=== PATIENT | female | born 1955 | race Caucasian/White ===

== ENCOUNTER 2016-10-06 07:10 | Emergency (ER) | payer OTHER ==
[~2016-10-06] VITALS: Ht 162.6 cm; Wt 146.9 kg
[~2016-10-06 07:10] MED LIST: CLON0.5T3 PO; FURO-85 PO; HYDR12.55 PO; INSDGI SC; LEVO200T6 PO; LEVO25TA5 PO; LISI-461 PO; METF-384 PO; METO25TA56 PO; NORT10CA2 PO; PRLSR20 PO; REPA1TAB42 PO; ROPI1TAB PO; SERT-234 PO
[2016-10-06 07:15] VITALS: TEMP 37; Ht 162.6 cm; Wt 146.9 kg
[2016-10-06] MEDS ORDERED: KETOROLAC TROMETHAMINE 30 MG/ML VIAL IV STA (07:24)
[2016-10-06] MEDS ORDERED: SODIUM CHLORIDE 0.9% 1000ML 1,000 ML IV ONE (07:30)
[2016-10-06 08:17] LABS: BUN/CREATININE RATIO 17.2 (10-20); CALCIUM 8.7 mg/dl (8.5-10.1); CREATININE 1.2 mg/dl (0.60-1.20); POTASSIUM 4.2 mmol/L (3.5-5.1)
[2016-10-06 08:20] LABS: ALB/GLOB RATIO 0.8 (0.9-2)
[2016-10-06 08:21] LABS: BASO % 0.4 %; BASO ABS # 0.03 K/uL (0-0.2); COMPLETE YES; EOS % 4.4 %; IG% 0.7 %; LYMPH % 16.4 %; LYMPH ABS # 1.22 K/uL (1.2-3.4); MEAN CELL VOLUME 92.3 fL (80-100); MEAN CORPUSCULAR HEMOGLOBIN 29.5 pg (25-34); NEUT % 73.1 %; PLATELET COUNT 256 K/uL (130-400); RED BLOOD COUNT 4.44 M/uL (4.2-5.4); WHITE BLOOD COUNT 7.44 K/uL (4.8-10.8)
--- NOTE | 2016-10-06 08:36 | DIAGNOSTIC IMAGING REPORT ---
PA CHEST WITH ABDOMINAL SERIES CLINICAL HISTORY: Fall. Generalized abdominal pain. FINDINGS: A PA chest radiograph is compared to study dated 07/09/2015. The heart is top normal for projection. The pulmonary vasculature is noncongested. There is mild atherosclerotic calcification of the thoracic aorta. The lungs and pleural spaces are clear. No pneumothorax is seen. The skeletal structures are osteopenic. The bony thorax is grossly intact. Surgical clips are noted in the lower neck. Supine and erect abdominal radiographs are correlated with abdominal CT dated 07/08/2015. The examination is significantly degraded by large body habitus. There is a nonobstructed abdominal bowel gas pattern. No evidence of intraperitoneal free air is seen. Cholecystectomy clips are identified in the right upper quadrant. An IVC filter is in place. No abnormal abdominal calcifications are seen. Hepatomegaly is observed. There is mild lumbosacral spondylosis. The bony pelvis appears intact. IMPRESSION: 1. No active disease in the chest. 2. Nonobstructed abdominal bowel gas pattern. Electronically signed by: Zachariah Borden M.D. 10/06/2016 8:35 AM Dictated Date/Time: 10/06/2016 8:32 AM
--- NOTE | 2016-10-06 08:39 | DIAGNOSTIC IMAGING REPORT ---
LUMBAR SPINE 5 VIEWS CLINICAL HISTORY: Fall. Low back pain. FINDINGS: 5 views of the lumbar spine are correlated with CT scan of lumbar spine dated 07/08/2015. The skeletal structures are osteopenic. There is no radiographic evidence of fracture or malalignment. Vertebral body height is maintained throughout the lumbar spine. There is minimal retrolisthesis of L1-L2 and L2-L3. Minimal anterolisthesis is seen at L4-L5. Anterior osteophytes are seen throughout. The transverse and spinous processes are intact. There is no evidence of spondylolysis. There is moderate degenerative disc space narrowing seen at L2-L3 and L3-L4 with associated endplate sclerosis. Mild degenerative disc space narrowing is seen at the remaining lumbar levels. Moderate facet arthropathy is seen in the lower lumbar spine. The visualized bony pelvis appears intact. There is a nonobstructed abdominal bowel gas pattern. An IVC filter is in place. Cholecystectomy clips are noted. There is advanced atherosclerotic calcification of the abdominal aorta. IMPRESSION: 1. There is no radiographic evidence of fracture or malalignment involving the lumbosacral spine. 2. Osteopenia and lumbosacral spondylosis as above. Electronically signed by: Zachariah Borden M.D. 10/06/2016 8:37 AM Dictated Date/Time: 10/06/2016 8:35 AM
[2016-10-06] MEDS ORDERED: LIRA18IN INJ (08:40)
--- NOTE | 2016-10-06 08:42 | DIAGNOSTIC IMAGING REPORT ---
RIGHT SHOULDER MIN 2 VIEWS ROUTINE CLINICAL HISTORY: Right shoulder pain status post trauma COMPARISON: None. DISCUSSION: No fractures or dislocations are visualized. There are no visible periarticular calcifications. IMPRESSION: No fractures or dislocations identified. Electronically signed by: Austin Claire M.D. 10/06/2016 8:40 AM Dictated Date/Time: 10/06/2016 8:40 AM
[2016-10-06] MEDS ORDERED: HYDR-5688 PO (09:29)
[2016-10-06 10:14] VITALS: BP 126/86; PULSE 94; O2SAT 92
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
[2017-05-05] MEDS ORDERED: CYCL10TA6 PO (08:20)
[2017-05-05] MEDS ORDERED: DPRSCR15 TOP (08:20)
[2017-05-05] MEDS ORDERED: NORT50CA PO (08:20)
[2017-05-05] MEDS ORDERED: OXGN (08:22)
[2017-05-05] MEDS ORDERED: TRAM-10 PO (08:22)
== END 2016-10-06 10:16 | disposition home or self-care (01) ==
LOC: C.EDB 07:10 → EDBD 07:10 → C.EDB 10:16
DX: S40.011A Contusion of right shoulder, initial encounter (principal); W01.0XXA Fall on same level from slipping, tripping and stumbling without subsequent striking against object, initial encounter; Y92.019 Unspecified place in single-family (private) house as the place of occurrence of the external cause; I10 Essential (primary) hypertension; E78.5 Hyperlipidemia, unspecified; K57.92 Diverticulitis of intestine, part unspecified, without perforation or abscess without bleeding; K21.9 Gastro-esophageal reflux disease without esophagitis; G47.33 Obstructive sleep apnea (adult) (pediatric); F32.9 Major depressive disorder, single episode, unspecified; Z86.718 Personal history of other venous thrombosis and embolism; Z96.659 Presence of unspecified artificial knee joint; Z87.891 Personal history of nicotine dependence; Z79.4 Long term (current) use of insulin; Z79.84 Long term (current) use of oral hypoglycemic drugs; Z79.899 Other long term (current) drug therapy; Z88.5 Allergy status to narcotic agent; Z88.8 Allergy status to other drugs, medicaments and biological substances

== ENCOUNTER → 2017-05-05 | Outpatient (CLI) | payer OTHER ==
--- NOTE | 2017-05-04 12:10 | History and Physical ---
History & Physical Date of Service May 04, 2017. History & Physical PROCEDURE: Left total knee replacement. HISTORY OF PRESENT ILLNESS: The patient is a pleasant 62-year-old female who presents for preoperative evaluation prior to left total knee replacement. She states that she has been experiencing in the left knee now for several years which is gradually worsening. She denies any previous injury or trauma, she does admit to pain, crepitus, decreased range of motion and stiffness, and instability. Her pain is aggravated by climbing stairs, walking, standing for prolonged periods of time. She has taken prior anti-inflammatories including Advil without any relief and also used a cane to ambulate. She states she had a previous cortisone injections in her knee which did not provide any relief. After discussing further care with Dr. Carrillo, would like to proceed with a left total knee replacement. Underwent Right TKA in 2013 and is doing well. PAST MEDICAL HISTORY: 1. h/o Pneumonia which she subsequently developed a pneumothorax and what sounds like sepsis. She was then placed into a drug induced coma and was transferred to [place]. She was hospitalized from Jun 2009 through November 2009 which included stay at nursing facility. While hospitalized, she developed a DVT and was treated with Heparin, which she had a severe allergic reaction to which she states almost caused her to . She has since had a filter placed in her right leg for clots. 2. Diabetes. 3. Hypertension. 4. GERD. 5. Depression. 6. History of DVT. 7. Sleep apnea. 8. Thyroid disease s/p thyroidectomy due to h/o goiter and previous trach. ALLERGIES: 1. MORPHINE- causes her to be violent, no allergic reaction 2. CODEINE- states she is ok with Percocet 3. Heparin- "bad reaction which almost caused me to " CURRENT MEDICATIONS: 1. Hydrochlorothiazide 12.5 mg daily. 2. Tirosint 25 micrograms daily. 3. Metoprolol 25 mg b.i.d. 4. Repaglinide 1 tablet by mouth 3 times daily. 5. Insulin glargine 6. Lisinopril 10 mg daily. 7. Levothyroxine 200 micrograms 1 tablet daily. 8. Sertraline 100 mg daily. 9. Prilosec 20 mg daily. 10. Klonopin 0.5 mg daily. 11. Cyclobenzaprine 10 mg daily. 12. Claritin 10 mg daily. 13. Tylenol p.r.n. 14. Lasix 20 mg daily. 15. Advil p.r.n. 16. Voctoza 17. Flexeril PAST SURGICAL HISTORY: 1. Ankle scope. 2. Knee arthroscopy. 3. Cholecystectomy 2008. 4. Colostomy in 1996. 5. filter into right leg for clots 6. Thyroidectomy 7. Right TKA FAMILY HISTORY: Noncontributory. SOCIAL HISTORY: The patient is a former smoker, denies any alcohol consumption. REVIEW OF SYSTEMS: Otherwise negative. Please see HPI for pertinent positives. PHYSICAL EXAMINATION: GENERAL: Well developed, well-nourished pleasant 62-year-old female in no acute distress, alert and oriented. She weighs 345 pounds. VITAL SIGNS: Her blood pressure is 110/86, pulse is 80. HEENT: Normocephalic, atraumatic. CARDIAC: Regular rate and rhythm. No murmurs or gallops appreciated. Resting pulse 76 beats minute. LUNGS: Clear to auscultation without rales or wheeze bilaterally. ABDOMEN: Soft, nontender, obese. Bowel sounds present. EXTREMITIES: Attention to left lower extremity, she is neurovascularly intact. Calves soft and nontender. DP pulse +2. Good quad tone. Straight leg raise without lag. Knee is ligamentously stable. There is no erythema or warmth. Moderate effusion, positive crepitation with motion, range of motion is 0/5/105. IMAGING: Views of her Left knee shows degenerative joint disease with joint space narrowing and peripheral osteophytes, worse over the medial compartment with varus alignment. She also had degenerative changes with patellar spurring of the patellofemoral view. No acute bony pathology. IMPRESSION: 1. Left knee degenerative joint disease. 2. Hypertension. 3. Diabetes. 4. Thyroid disease s/p thyroidectomy 5. Sleep apnea. 6. Obesity. 7. History of DVT. PLAN: Further care discussed with patient. At this point in time, proceed with a left total knee replacement. Given her history of DVT, we will need to consider more aggressive DVT prophylaxis, she will check w/ her PCP tomorrow during clearance appointment. She does have filter in place but can not take Lovenox. At this point in time, after discussing all the risks and benefits of the procedure and failing conservative measures, she would like to proceed with a left total knee replacement.
[~2017-05-05] VITALS: Ht 165.1 cm; Wt 148.9 kg
[~2017-05-05] MED LIST changes: +ACET-1256 PO; +CIPR-255 PO; +CYCL10TA6 PO; +DPRSCR15 TOP; -FURO-85 PO; +LIRA18IN INJ; +NORT50CA PO; +OXGN; -REPA1TAB42 PO; +TRAM-10 PO
[2017-05-05 08:24] VITALS: Ht 165.1 cm; Wt 148.9 kg
--- NOTE | 2017-05-05 09:04 | PAT Medication Instructions ---
Service Date May 05, 2017. Current Home Medication List Betamethasone Dip (Betamethasone Dipropionat), 1 APPLN TOP BID PRN for PRN Clonazepam (Klonopin), 0.5 MG PO BID Cyclobenzaprine Hcl (Flexeril), 10 MG PO PRN Home O2 Therapy (Oxygen), 4 LITERS NA HS Hydrochlorothiazide (Hydrochlorothiazide), 1 TAB PO QAM Insulin Glargine (Lantus), 56 UNITS SC BID Levothyroxine Sodium (Levothyroxine Sodium), 1 TAB PO QAM Levothyroxine Sodium (Levothyroxine Sodium), 1 TAB PO QAM Liraglutide (Victoza), 1.8 MG INJ QPM Lisinopril (Zestril), 10 MG PO QAM Metoprolol Tartrate (Lopressor) (Lopressor), 25 MG PO BID Nortriptyline (Pamelor), 50 MG PO HS Omeprazole (Prilosec), 20 MG PO HS Ropinirole (Requip), 1 MG PO HS Sertraline (Zoloft), 100 MG PO QPM Tramadol (Ultram), 50 MG PO Q6H PRN for acupressure therapist Instructions For Your Scheduled Surgery - Hold the following medications 24 hours prior to surgery: Betamethasone Dip (Betamethasone Dipropionat), 1 APPLN TOP BID PRN for PRN Ropinirole (Requip), 1 MG PO HS - Hold the following medications the morning of surgery: Cyclobenzaprine Hcl (Flexeril), 10 MG PO PRN Hydrochlorothiazide (Hydrochlorothiazide), 1 TAB PO QAM Lisinopril (Zestril), 10 MG PO QAM - Take the following medications the morning of surgery with a sip of water OTHERWISE NOTHING TO EAT OR DRINK AFTER MIDNIGHT: Tramadol (Ultram), 50 MG PO Q6H PRN (may take if needed up to 4 hours prior to surgery) Levothyroxine Sodium (Levothyroxine Sodium), 1 TAB PO QAM Metoprolol Tartrate (Lopressor) (Lopressor), 25 MG PO BID Clonazepam (Klonopin), 0.5 MG PO BID - For Insulin Dependent Diabetic patients: Test blood sugar A.M. of surgery. - If Blood Sugar is GREATER THAN 150, take HALF of your regular dose of: Insulin Glargine (Lantus) - If Blood Sugar is LESS THAN 150, do not take any: Insulin Glargine ( Lantus) - Take the following medications as scheduled the night before surgery: Tramadol (Ultram), 50 MG PO Q6H PRN for RN Sertraline (Zoloft), 100 MG PO QPM Insulin Glargine (Lantus), 56 UNITS SC BID Liraglutide (Victoza), 1.8 MG INJ QPM Nortriptyline (Pamelor), 50 MG PO HS Omeprazole (Prilosec), 20 MG PO HS Cyclobenzaprine Hcl (Flexeril), 10 MG PO PRN Metoprolol Tartrate (Lopressor) (Lopressor), 25 MG PO BID Clonazepam (Klonopin), 0.5 MG PO BID If you have any questions please call us at [phone] or [phone] or [phone]
--- NOTE | 2017-05-05 09:29 | DIAGNOSTIC IMAGING REPORT ---
CHEST PREADMISSION(PA/LAT) HISTORY: 62 years-old Female preadmission exam. No chest complaints. COMPARISON: Chest radiograph 10/06/2016 TECHNIQUE: Frontal and lateral views of the chest. FINDINGS: Cardiomediastinal and hilar silhouettes are within normal limits. There is atherosclerosis of the aorta. Partially imaged surgical clip in the left lower neck is seen. There is no pneumothorax, pleural effusion or focal airspace consolidation. No overt pulmonary edema. Moderate degenerative changes involve the AC joints bilaterally. There is suggest calcific tendinosis of the left rotator cuff. Multilevel endplate spurring seen throughout the spine. Cholecystectomy clips are noted. IVC filter is partially imaged. IMPRESSION: No acute cardiopulmonary process. The above report was generated using voice recognition software. It may contain grammatical, syntax or spelling errors. Electronically signed by: Ernesto Gilliland M.D. 05/05/2017 9:27 AM Dictated Date/Time: 05/05/2017 9:26 AM
[2017-05-05 10:00] LABS: BASO % 0.4 %; BASO ABS # 0.04 K/uL (0-0.2); COMPLETE YES; HEMATOCRIT 40.4 % (37-47); LYMPH % 25.5 %; LYMPH ABS # 2.32 K/uL (1.2-3.4); MEAN CELL VOLUME 92.7 fL (80-100); MEAN CORPUSCULAR HEMOGLOBIN 29.1 pg (25-34); MEAN CORPUSCULAR HGB CONC 31.4 g/dl (32-36); MEAN PLATELET VOLUME 9.9 fL (7.4-10.4); MONO % 5.2 %; NEUT % 63.9 %; PLATELET COUNT 264 K/uL (130-400); RED BLOOD COUNT 4.36 M/uL (4.2-5.4); WHITE BLOOD COUNT 9.09 K/uL (4.8-10.8)
[2017-05-05 10:03] LABS: URINE APPEARANCE CLEAR (CLEAR); URINE BILIRUBIN NEG (NEG); URINE COLOR YELLOW; URINE EPITHELIAL CELL AUTO >30 /lpf (0-5); URINE NITRITE NEG (NEG); URINE SPECIFIC GRAVITY 1.018 (1.000-1.030); UROBILINOGEN NEG (NEG)
[2017-05-05 10:10] LABS: MANUAL MICROSCOPIC REQUIRED? NO; REVIEW REQ? NO
[2017-05-05 10:15] LABS: ESTIMATED AVERAGE GLUCOSE 232 mg/dl; HA1C FLAG Normal (Normal)
[2017-05-05 10:21] LABS: PROTHROMBIN TIME (PATIENT) 10.4 SECONDS (9.0-12.0)
[2017-05-05 10:41] LABS: BUN/CREATININE RATIO 17.8 (10-20); CALCIUM 8.4 mg/dl (8.5-10.1); CREATININE 1.3 mg/dl (0.60-1.20); POTASSIUM 4.4 mmol/L (3.5-5.1)
--- NOTE | 2017-07-08 07:50 | CODING QUERY NO DIAGNOSIS ---
: 1955 TREATMENT RENDERED WITHOUT A DIAGNOSIS To promote full compliance with coding requirements relating to patient care, physician participation is requested in all cases of mining technician uncertainty. Please assist us with providing a diagnosis/symptom for the test(s) below: A diagnosis/symptom was not documented on your Order. A valid diagnosis/symptom is required to bill all insurances. Please remember that we are unable to code a diagnosis of rule out, probable, possible, questionable, or suspected. Tests that require a diagnosis: DOS: 05/05/17 * CBC DIAGNOSIS: * PRP DIAGNOSIS: * PT/INR DIAGNOSIS: * PTT DIAGNOSIS: * ECG DIAGNOSIS: * UA CLEAN CATCH DIAGNOSIS: * HEMOGLOBIN A1C DIAGNOSIS: * ALBUMIN DIAGNOSIS: * CHEST PAT DIAGNOSIS: Provider Signature: Date: Thank you Becki Lay [employer] Information Management Once completed, please kindly fax back to [phone] For questions please call [phone]
== END | disposition home or self-care (01) ==
LOC: C.LAB 08:00 → EDSTATUS 06-01 14:23
PROVIDERS: ATTEND Orthopaedic Surgery
DX: Z01.812 Encounter for preprocedural laboratory examination (principal); Z01.818 Encounter for other preprocedural examination; M17.12 Unilateral primary osteoarthritis, left knee

== ENCOUNTER 2017-05-21 12:35 | Emergency (ER) | payer OTHER ==
[~2017-05-21 12:35] MED LIST changes: -ACET-1256 PO; -CIPR-255 PO; -METF-384 PO; -NORT10CA2 PO
[2017-05-21 12:38] VITALS: TEMP 37; Ht 165.1 cm
[2017-05-21] MEDS ORDERED: SODIUM CHLORIDE 0.9% 1000ML 1,000 ML IV STA (13:14)
[2017-05-21] MEDS ORDERED: ACET-1256 PO (13:26)
[2017-05-21 13:33] LABS: BASO % 0.3 %; BASO ABS # 0.04 K/uL (0-0.2); COMPLETE YES; EOS % 3.7 %; HEMATOCRIT 43.9 % (37-47); IG% 0.7 %; LYMPH % 23.7 %; LYMPH ABS # 2.73 K/uL (1.2-3.4); MEAN CELL VOLUME 92.6 fL (80-100); MEAN CORPUSCULAR HEMOGLOBIN 28.5 pg (25-34); MEAN CORPUSCULAR HGB CONC 30.8 g/dl (32-36); MEAN PLATELET VOLUME 9.9 fL (7.4-10.4); MONO % 4.2 %; NEUT % 67.4 %; PLATELET COUNT 330 K/uL (130-400); RED BLOOD COUNT 4.74 M/uL (4.2-5.4); WHITE BLOOD COUNT 11.53 K/uL (4.8-10.8)
[2017-05-21 13:39] LABS: MANUAL MICROSCOPIC REQUIRED? NO; REVIEW REQ? NO; URINE APPEARANCE CLEAR (CLEAR); URINE BILIRUBIN NEG (NEG); URINE COLOR YELLOW; URINE EPITHELIAL CELL AUTO >30 /lpf (0-5); URINE NITRITE NEG (NEG); URINE PH 5.5 (4.5-7.5); URINE SPECIFIC GRAVITY 1.015 (1.000-1.030); UROBILINOGEN NEG (NEG)
[2017-05-21 13:57] LABS: ALT/SGPT 31 U/L (12-78); BLOOD UREA NITROGEN 22 mg/dl (7-18); BUN/CREATININE RATIO 16.6 (10-20); CALCIUM 8.9 mg/dl (8.5-10.1); CARBON DIOXIDE 27 mmol/L (21-32); CHLORIDE 101 mmol/L (98-107); GLUCOSE 176 mg/dl (70-99); POTASSIUM 3.8 mmol/L (3.5-5.1); SODIUM 137 mmol/L (136-145)
[2017-05-21 14:00] LABS: ALB/GLOB RATIO 0.7 (0.9-2); ALKALINE PHOSPHATASE 105 U/L (45-117); AST/SGOT 30 U/L (15-37)
[2017-05-21] MEDS ORDERED: FENTANYL CITRATE INJ 50 MCG/1 ML 2 ML VIAL IV STA (14:12)
[2017-05-21] MEDS ORDERED: KETOROLAC TROMETHAMINE 30 MG/ML VIAL IV STA (14:12)
[2017-05-21] MEDS ORDERED: ONDANSETRON INJ 2 MG/ML 2 ML VIAL IV STA (14:12)
--- NOTE | 2017-05-21 15:16 | DIAGNOSTIC IMAGING REPORT ---
ABD/PELVIS NO IV OR ORAL CONT CLINICAL HISTORY: 62 years-old Female presenting with LLQ PAIN, DYSURIA, HX OF DIVERTICULITIS. TECHNIQUE: Multidetector CT of the abdomen and pelvis was performed without the use of intravenous contrast. IV contrast: None. A dose lowering technique was used consistent with the principles of ALARA (as low as reasonably achievable). COMPARISON: 07/08/2015. CT DOSE (mGy.cm): The estimated cumulative dose is 1802.60 mGy.cm. 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 Cholecystectomy clips. Lung bases: Minimal reticular opacities with septal thickening noted in the right middle lobe, similar to prior exam, possibly chronic scarring. Mosaic attenuation at the lung bases may suggest small airways disease. Normal heart size. Coronary artery calcification. No pericardial or pleural effusion. Liver: Enlarged measuring over 20 cm in maximal sagittal dimension. Hepatic steatosis. Biliary: No gross biliary ductal dilatation allowing for noncontrast technique. Gallbladder surgically absent. Pancreas: Mild parenchymal atrophy. Spleen: Normal. Adrenal glands: 1.4 cm nodule in the lateral limb of the left adrenal gland is unchanged from prior with a density consistent with benign adenoma. Kidneys and ureters: No nephrolithiasis. Apparent malrotation of the right kidney may be due to displacement secondary to hepatic enlargement. Persistent mild right pelvocaliectasis with abrupt narrowing of the right ureter at the ureteropelvic junction, unchanged. No left hydronephrosis. Ureters normal. Bladder: Normal. Pelvic organs: Uterus and ovaries normal. Bowel: Prominent sigmoid diverticulum measuring over 3 cm in diameter. No associated inflammation. Transverse colon containing ventral hernia with a relatively wide neck. Normal appendix. No bowel obstruction. Duodenal diverticulum at the pancreatic head suggested with a second duodenal diverticulum posterior to the SMA. Peritoneal cavity: No free fluid or intraperitoneal gas. Vasculature: Atherosclerosis of the normal caliber abdominal aorta. Infrarenal IVC filter in place. Lymph nodes: No gross lymphadenopathy allowing for noncontrast technique. Abdominal wall: Multiple ventral hernias. One of these contains transverse colon with a wide neck. The epigastric ventral hernia has a more relatively narrow neck and is fat-containing. No associated inflammation or fluid to suggest strangulation. Musculoskeletal: Degenerative changes of the spine. IMPRESSION: 1. Single large sigmoid diverticulum without evidence of diverticulitis. No bowel obstruction. 2. No nephrolithiasis. No hydronephrosis. No radiographic evidence of cystitis. 3. Benign left adrenal adenoma, unchanged. 4. Multiple ventral hernias without evidence of strangulation. 5. Hepatic steatosis with hepatomegaly Electronically signed by: Ricardo Vernon M.D. 05/21/2017 3:14 PM Dictated Date/Time: 05/21/2017 3:06 PM
[2017-05-21] MEDS ORDERED: CIPROFLOXACIN 500 MG TAB PO STA (15:42)
[2017-05-21] MEDS ORDERED: CIPR-255 PO (15:47)
--- NOTE | 2017-05-21 15:48 | EMERGENCY ROOM VISIT NOTE ---
History First contact with patient: 13:02 Chief Complaint: URINARY SYMPTOMS Stated Complaint: REFERRED BY MIKAYLA, POSSIBLE UTI,L LOWER ABD PA Nursing Triage Summary: Pt c/o low abd pain for three days. Seen at [facility], had a positive urine test for UTI. History of Present Illness Patient is a 62-year-old white female who presents to the emergency department for evaluation of lower abdominal discomfort with associated dysuria, frequency and urgency. She states she has had symptoms on and off for a week or so, but the victoria became more constant in the last 2-3 days. She notes urinary frequency , urgency and dysuria, has also noted some lower abdominal pain and pressure, primarily on the left-hand side which is increased over the last 2-3 days. She denies any nausea, vomiting or diarrhea. No fever. She does have a history of urinary tract infections, she states she was last treated with an antibiotic about 2 months ago. She states that her last bowel movement was yesterday and was normal for her. She denies melena, hematochezia or diarrhea. She has a history of diverticulosis and diverticulitis complicated by a perforation, bowel resection, colostomy and subsequent colostomy reversal. She is also status post abdominal herniorrhaphy and cholecystectomy. Her last colonoscopy was a year ago and was clear. She was seen at a [facility] facility today, and her urine dip was "positive." She is scheduled for a left total knee arthroplasty on 06/01. Review of Systems Review of systems as per HPI. All other systems reviewed were negative. 10 systems reviewed. Past Medical/Surgical History Medical Problems: (1) Abdominal pain (2) Abdominal pain (3) Acute Venous Embolism & Thrombosis Unsp Deep Vessels Of Le (4) Contusion of multiple sites (5) Contusion of multiple sites (6) Depressive Disorder Nec (7) Diab Zhanna Wo Compl, Type Ii Or Unspec Type, Not Uncntrld (8) Diverticulitis Colon (W/O Ment Of Hemorrhage) (9) Diverticulosis Colon (W/O Ment Of Hemorrhage) (10) Esophageal Reflux (11) Fall (12) Fall (13) History Of Tobacco Use (14) Hyperlipidemia Nec/Nos (15) Hypertension Nos (16) Hypomagnesemia (17) Hypothyroidism, Unspecified (18) Iatrogenic Pneumothorax (19) Incisional Hernia (20) LLQ abdominal pain (21) Morbid Obesity (22) Obstructive Sleep Apnea (Adult) (Pediatric) (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 See Problem List. Social History Smoking Status: Former Smoker Alcohol Use: occasionally Marital Status: Occupation Status: employed Current/Historical Medications Scheduled Ciprofloxacin Hcl (Cipro), 500 MG PO BID Clonazepam (Klonopin), 0.5 MG PO BID Home O2 Therapy (Oxygen), 4 LITERS NA HS Hydrochlorothiazide (Hydrochlorothiazide), 12.5 MG PO QAM Insulin Glargine (Lantus), 66 UNITS SC BID Levothyroxine Sodium (Levothyroxine Sodium), 25 MCG PO QAM Levothyroxine Sodium (Levothyroxine Sodium), 200 MCG PO QAM Liraglutide (Victoza), 1.8 MG INJ QPM Lisinopril (Zestril), 10 MG PO QAM Metoprolol Tartrate (Lopressor) (Lopressor), 25 MG PO BID Nortriptyline (Pamelor), 50 MG PO HS Omeprazole (Prilosec), 20 MG PO HS Ropinirole (Requip), 1 MG PO HS Sertraline (Zoloft), 100 MG PO QPM Scheduled PRN Acetaminophen (Tylenol), 500-1,500 MG PO Q8 PRN for Pain Betamethasone Dip (Betamethasone Dipropionat), 1 APPLN TOP BID PRN for PRN Cyclobenzaprine Hcl (Flexeril), 10 MG PO HS PRN for Muscle Spasms Tramadol (Ultram), 50 MG PO Q6H PRN for RN Physical Exam Vital Signs Date Time Temp Pulse Resp B/P (MAP) Pulse Ox O2 Delivery O2 Flow Rate FiO2 05/21/17 15:55 81 18 118/74 94 05/21/17 15:48 81 18 118/74 94 Room Air 05/21/17 14:23 90 18 149/102 96 Room Air 05/21/17 12:38 37.0 92 18 135/84 96 Room Air Physical Exam CONSTITUTIONAL: Patient is a morbidly obese 62-year-old white female who is awake and alert and in mild distress due to her abdominal discomfort. EYES: Pupils equal, round, reactive to light and accommodation. EOMs intact without nystagmus. Sclera are anicteric. ENT: Tympanic membranes intact, with normal landmarks. External canals are clear. Oral and nasopharynx are clear. Mucous membranes are moist, no lesions , tongue and gums appear normal. CARDIOVASCULAR: Regular rate and rhythm, with normal S1 and S2, no murmur or gallop or rub is heard. No carotid bruits auscultated. No JVD. Peripheral pulses easily palpable. RESPIRATORY: Breath sounds equal and clear to auscultation without wheezes, rales, or rhonchi heard. Full and equal chest expansion without accessory muscle use or retractions. ABDOMEN: Bowel sounds are present. Multiple well-healed surgical scars are noted. Abdomen is soft, obese, nondistended, tender to palpation throughout the entire lower abdomen, worse on the left. It is no guarding, rebound or rigidity. No CVA tenderness. INTEGUMENTARY: No lesions or rash, normal skin turgor. LYMPH: No lymphadenopathy. Medical Decision & Procedures ER Provider Diagnostic Interpretation: ABD/PELVIS NO IV OR ORAL CONT CLINICAL HISTORY: 62 years-old Female presenting with LLQ PAIN, DYSURIA, HX OF DIVERTICULITIS. TECHNIQUE: Multidetector CT of the abdomen and pelvis was performed without the use of intravenous contrast. IV contrast: None. A dose lowering technique was used consistent with the principles of ALARA (as low as reasonably achievable). COMPARISON: 07/08/2015. CT DOSE (mGy.cm): The estimated cumulative dose is 1802.60 mGy.cm. FINDINGS: [employer] topogram: IVC filter noted. Cholecystectomy clips. Lung bases: Minimal reticular opacities with septal thickening noted in the right middle lobe, similar to prior exam, possibly chronic scarring. Mosaic attenuation at the lung bases may suggest small airways disease. Normal heart size. Coronary artery calcification. No pericardial or pleural effusion. Liver: Enlarged measuring over 20 cm in maximal sagittal dimension. Hepatic steatosis. Biliary: No gross biliary ductal dilatation allowing for noncontrast technique. Gallbladder surgically absent. Pancreas: Mild parenchymal atrophy. Spleen: Normal. Adrenal glands: 1.4 cm nodule in the lateral limb of the left adrenal gland is unchanged from prior with a density consistent with benign adenoma. Kidneys and ureters: No nephrolithiasis. Apparent malrotation of the right kidney may be due to displacement secondary to hepatic enlargement. Persistent mild right pelvocaliectasis with abrupt narrowing of the right ureter at the ureteropelvic junction, unchanged. No left hydronephrosis. Ureters normal. Bladder: Normal. Pelvic organs: Uterus and ovaries normal. Bowel: Prominent sigmoid diverticulum measuring over 3 cm in diameter. No associated inflammation. Transverse colon containing ventral hernia with a relatively wide neck. Normal appendix. No bowel obstruction. Duodenal diverticulum at the pancreatic head suggested with a second duodenal diverticulum posterior to the SMA. Peritoneal cavity: No free fluid or intraperitoneal gas. Vasculature: Atherosclerosis of the normal caliber abdominal aorta. Infrarenal IVC filter in place. Lymph nodes: No gross lymphadenopathy allowing for noncontrast technique. Abdominal wall: Multiple ventral hernias. One of these contains transverse colon with a wide neck. The epigastric ventral hernia has a more relatively narrow neck and is fat-containing. No associated inflammation or fluid to suggest strangulation. Musculoskeletal: Degenerative changes of the spine. IMPRESSION: 1. Single large sigmoid diverticulum without evidence of diverticulitis. No bowel obstruction. 2. No nephrolithiasis. No hydronephrosis. No radiographic evidence of cystitis. 3. Benign left adrenal adenoma, unchanged. 4. Multiple ventral hernias without evidence of strangulation. 5. Hepatic steatosis with hepatomegaly Laboratory Results 05/21/17 12:55 Red Blood Count 4.74, Mean Corpuscular Volume 92.6, Mean Corpuscular Hemoglobin 28.5, Mean Corpuscular Hemoglobin Concent 30.8, Mean Platelet Volume 9.9, Neutrophils (%) (Auto) 67.4, Lymphocytes (%) (Auto) 23.7, Monocytes (%) (Auto) 4.2, Eosinophils (%) (Auto) 3.7, Basophils (%) (Auto) 0.3, Neutrophils # (Auto) 7.77, Lymphocytes # (Auto) 2.73, Monocytes # (Auto) 0.48, Eosinophils # (Auto) 0.43, Basophils # (Auto) 0.04 05/21/17 12:55 Test 05/21/17 12:55 White Blood Count 11.53 K/uL (4.8-10.8) Red Blood Count 4.74 M/uL (4.2-5.4) Hemoglobin 13.5 g/dL (12.0-16.0) Hematocrit 43.9 % (37-47) Mean Corpuscular Volume 92.6 fL (80-100) Mean Corpuscular Hemoglobin 28.5 pg (25-34) Mean Corpuscular Hemoglobin Concent 30.8 g/dl (32-36) Platelet Count 330 K/uL (130-400) Mean Platelet Volume 9.9 fL (7.4-10.4) Neutrophils (%) (Auto) 67.4 % Lymphocytes (%) (Auto) 23.7 % Monocytes (%) (Auto) 4.2 % Eosinophils (%) (Auto) 3.7 % Basophils (%) (Auto) 0.3 % Neutrophils # (Auto) 7.77 K/uL (1.4-6.5) Lymphocytes # (Auto) 2.73 K/uL (1.2-3.4) Monocytes # (Auto) 0.48 K/uL (0.11-0.59) Eosinophils # (Auto) 0.43 K/uL (0-0.5) Basophils # (Auto) 0.04 K/uL (0-0.2) RDW Standard Deviation 47.7 fL (36.4-46.3) RDW Coefficient of Variation 14.1 % (11.5-14.5) Immature Granulocyte % (Auto) 0.7 % Immature Granulocyte # (Auto) 0.08 K/uL (0.00-0.02) Urine Color YELLOW Urine Appearance CLEAR (CLEAR) Urine pH 5.5 (4.5-7.5) Urine Specific [place] 1.015 (1.000-1.030) Urine Protein NEG (NEG) Urine Glucose (UA) NEG (NEG) Urine Ketones NEG (NEG) Urine Occult Blood NEG (NEG) Urine Nitrite NEG (NEG) Urine Bilirubin NEG (NEG) Urine Urobilinogen NEG (NEG) Urine Leukocyte Esterase SMALL (NEG) Urine WBC (Auto) 10-30 /hpf (0-5) Urine RBC (Auto) 0-4 /hpf (0-4) Urine Hyaline Casts (Auto) 0 /lpf (0-5) Urine Epithelial Cells (Auto) >30 /lpf (0-5) Urine Bacteria (Auto) 2+ (NEG) Anion Gap 9.0 mmol/L (3-11) Estimated GFR () 50.9 Estimated GFR (Non- 43.9 BUN/Creatinine Ratio 16.6 (10-20) Calcium Level 8.9 mg/dl (8.5-10.1) Total Bilirubin 0.4 mg/dl (0.2-1) Aspartate Amino Transf (AST/SGOT) 30 U/L (15-37) Alanine Aminotransferase (ALT/SGPT) 31 U/L (12-78) Alkaline Phosphatase 105 U/L (45-117) Total Protein 8.8 gm/dl (6.4-8.2) Albumin 3.7 gm/dl (3.4-5.0) Globulin 5.1 gm/dl (2.5-4.0) Albumin/Globulin Ratio 0.7 (0.9-2) Medications Administered Medications (Trade) Dose Ordered Sig/Jevon Route Start Time Stop Time Status Last Admin Dose Admin Sodium Chloride 1,000 ml @ 250 mls/hr Q4H STAT IV 05/21/17 13:14 05/21/17 16:18 DC 05/21/17 13:25 250 MLS/HR Ondansetron HCl (Zofran Inj) 4 mg NOW STAT IV 05/21/17 14:12 05/21/17 14:14 DC 05/21/17 14:21 4 MG Ketorolac Tromethamine (Toradol Inj) 30 mg NOW STAT IV 05/21/17 14:12 05/21/17 14:14 DC 05/21/17 14:21 30 MG Fentanyl Citrate (Fentanyl Inj) 75 mcg NOW STAT IV 05/21/17 14:12 05/21/17 14:14 DC 05/21/17 14:22 75 MCG Ciprofloxacin (Cipro Tab) 500 mg NOW STAT PO 05/21/17 15:42 05/21/17 15:43 DC 05/21/17 15:47 500 MG ED Course The patient was seen and evaluated as above. Old records were reviewed. IV lock was initiated and laboratory studies were collected. She was hydrated with normal saline solution. She was given then tunnel 75 g, Toradol 30 mg and Zofran 4 mg IV for discomfort. Urinalysis, CBC and CMP were collected. Laboratory studies noted a slightly elevated white count at 11,500, H&H is normal. Electrolytes are within normal limits. BUN and creatinine to slightly elevated at 22 and 1.3, consistent with her chronic kidney disease. This appears stable for the patient. Liver functions are not elevated. Urinalysis notes small amount of leuk esterase and 10-30 WBCs with 2+ bacteria and greater than 30 epithelial cells. Sample is contaminated, however given her symptoms, urine culture was ordered and is pending. Given her diffuse abdominal discomfort, history of a bowel obstruction with multiple abdominal surgeries as well as diverticulitis, CT scan of the abdomen and pelvis was obtained. CT scan notes a single large sigmoid diverticulum without evidence for diverticulitis, no evidence for bowel traction, nephrolithiasis or hydronephrosis. She has multiple ventral hernias without evidence for strangulation. The patient was reassessed, and made aware of the results of her laboratory and diagnostic imaging studies. Given her upcoming total knee arthroplasty, she would like to be placed on antibiotics pending the urine culture as she does not want to potentially affect her ability to undergo the surgery. She will be placed on Cipro, pending the urine culture. She has a plan with her PCP this week, and was encouraged to keep this. The patient had good relief of her pain at discharge and rated it a 0/10. Her family member is driving. Differential diagnoses entertained included UTI, pyelonephritis, renal colic, diverticulosis, diverticulitis, bowel obstruction, perforation, ovarian cyst, ovarian torsion, among others. Medical Decision See emergency Department course. Medication Reconcilliation Current Medication List: was personally reviewed by me Blood Pressure Screening Patient's blood pressure: Elevated blood pressure Blood pressure disposition: Elevated BP felt to be situational Impression Primary Impression: Dysuria Additional Impression: LLQ abdominal pain Departure Information Prescriptions Ciprofloxacin Hcl (CIPRO) 500 Mg Tab 500 MG PO BID, #14 TAB Prov: Rajwinder Srinivasan PA 05/21/17 Referrals Teddy De Oliveira M.D. (PCP) Patient Instructions My [facility] Additional Instructions Ciprofloxacin(Cipro) 500mg: Take one pill twice daily for 7 days for your urine infection. All antibiotics can cause diarrhea. If this occurs and you feel worse or it does not resolve in 1-2 days follow up with your doctor or return to the Emergency Department as this could be signs of serious underlying problems. If you experience any pain in your tendons/joints or any tendon injury return to the ER for re-evaluation. Any medication can cause an allergic reaction, stop the pills immediately and return to the ER for rash, hives, breathing difficulties, or swelling. Ibuprofen(Motrin, Advil) may be used for fever or pain. Use 600mg every six hours as needed. Take with food. Avoid using more than 2400mg in a 24 hour period. Do not use 2400mg per day for more than three consecutive days without physician direction. Prolonged inappropriate use can lead to stomach upset or ulcers. This is available over the counter and typically comes in 200mg tablets. (AND/OR) Acetaminophen(Tylenol) may be used for fever or pain. Use 1000mg every eight hours as needed. Avoid using more than 3000mg in a 24 hour period. This is available over the counter. Read all the package inserts or medication information paperwork provided. If you have any questions or concerns call your primary provider, pharmacist or the ER for assistance. Rest and drink plenty of fluids as tolerated. Slow sips of water or sports drinks are recommended instead of large amounts all at once. Continue current medications. Once your stomach is settled start with a clear liquid diet (jello, soup broth, etc.) and then advance as tolerated. You should avoid full, heavy meals for about 24 hrs from the time your symptoms resolved. Return to the ER immediately for worsening or persistent abdominal/back pain, vomiting, fevers, worsening of your condition, or as needed. Follow up with your primary physician within 2-3 days for a recheck of the current condition Problem Qualifiers
[2017-05-21 15:55] VITALS: BP 118/74; PULSE 81; O2SAT 94
--- NOTE | 2017-05-23 15:35 | Pharmacy Progress Note ---
ED Pharmacist Culture FollowUp Date of Service: May 23, 2017. Patient was sent home with a prescription for ciprofloxacin, which should cover the E. coli growing from the patient's urine culture.
== END 2017-05-21 15:57 | disposition home or self-care (01) ==
LOC: C.EDB 12:36
DX: R30.0 Dysuria (principal); R10.32 Left lower quadrant pain; Z86.718 Personal history of other venous thrombosis and embolism; F32.9 Major depressive disorder, single episode, unspecified; E11.9 Type 2 diabetes mellitus without complications; K57.32 Diverticulitis of large intestine without perforation or abscess without bleeding; K57.30 Diverticulosis of large intestine without perforation or abscess without bleeding; K21.9 Gastro-esophageal reflux disease without esophagitis; E78.5 Hyperlipidemia, unspecified; I10 Essential (primary) hypertension; E03.9 Hypothyroidism, unspecified; E83.42 Hypomagnesemia; E66.01 Morbid (severe) obesity due to excess calories; M17.9 Osteoarthritis of knee, unspecified; Z87.891 Personal history of nicotine dependence; Z79.4 Long term (current) use of insulin; Z79.899 Other long term (current) drug therapy

== ENCOUNTER 2017-12-04 13:32 | Emergency (ER) | payer SELFPAY ==
[~2017-12-04] VITALS: Ht 165.1 cm; Wt 149.5 kg
[~2017-12-04 13:32] MED LIST changes: +ACET-1256 PO; +CIPR-255 PO
[2017-12-04 13:37] VITALS: Ht 165.1 cm; Wt 149.5 kg
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
[2017-12-04 14:32] LABS: HEMATOCRIT 43.6 % (37-47); HEMOGLOBIN 14.2 g/dL (12.0-16.0); MEAN CORPUSCULAR HGB CONC 32.6 g/dl (32-36); MEAN PLATELET VOLUME 9.8 fL (7.4-10.4); PLATELET COUNT 281 K/uL (130-400); RED CELL DISTRIBUTION WIDTH CV 14.6 % (11.5-14.5); RED CELL DISTRIBUTION WIDTH SD 49.7 fL (36.4-46.3); WHITE BLOOD COUNT 9.94 K/uL (4.8-10.8)
[2017-12-04] MEDS ORDERED: METF500T5 PO (14:55)
[2017-12-04] MEDS ORDERED: GABA-112 PO (14:55)
[2017-12-04 15:14] LABS: CREATININE 1.35 mg/dl (0.60-1.20)
[2017-12-04 15:15] LABS: ALBUMIN 3.3 gm/dl (3.4-5.0); CALCIUM 8.5 mg/dl (8.5-10.1); POTASSIUM 4.6 mmol/L (3.5-5.1); TOTAL PROTEIN 8.4 gm/dl (6.4-8.2)
[2017-12-04 16:00] VITALS: BP 143/89; PULSE 90; TEMP 36.7; O2SAT 96
== END 2017-12-04 16:00 | disposition home or self-care (01) ==
LOC: C.EDB 13:34 → C.EDA 16:00
DX: F32.9 Major depressive disorder, single episode, unspecified (principal); M79.7 Fibromyalgia; E11.9 Type 2 diabetes mellitus without complications; K57.30 Diverticulosis of large intestine without perforation or abscess without bleeding; K21.9 Gastro-esophageal reflux disease without esophagitis; E78.5 Hyperlipidemia, unspecified; I10 Essential (primary) hypertension; E03.9 Hypothyroidism, unspecified; G47.33 Obstructive sleep apnea (adult) (pediatric); Z87.19 Personal history of other diseases of the digestive system; Z86.718 Personal history of other venous thrombosis and embolism; Z87.891 Personal history of nicotine dependence; Z96.659 Presence of unspecified artificial knee joint; Z79.4 Long term (current) use of insulin; Z88.7 Allergy status to serum and vaccine; Z88.6 Allergy status to analgesic agent; Z88.5 Allergy status to narcotic agent; Z88.8 Allergy status to other drugs, medicaments and biological substances; Z81.8 Family history of other mental and behavioral disorders

== ENCOUNTER 2017-12-26 11:50 | Emergency (ER) | payer SELFPAY ==
[~2017-12-26] VITALS: Ht 165.1 cm; Wt 144.9 kg
[~2017-12-26 11:50] MED LIST changes: -ACET-1256 PO; -CIPR-255 PO; -DPRSCR15 TOP; +GABA-112 PO; +METF500T5 PO; -TRAM-10 PO
[2017-12-26 11:55] VITALS: TEMP 36.7; Ht 165.1 cm; Wt 144.9 kg
[2017-12-26] MEDS ORDERED: ONDANSETRON INJ 2 MG/ML 2 ML VIAL IV STA (12:17)
[2017-12-26] MEDS ORDERED: SODIUM CHLORIDE 0.9% 1000ML 2,000 ML IV STA (12:17)
[2017-12-26 12:36] LABS: BASO % 0.4 %; BASO ABS # 0.05 K/uL (0-0.2); EOS % 3.4 %; EOS ABS # 0.38 K/uL (0-0.5); HEMATOCRIT 42.3 % (37-47); HEMOGLOBIN 14.3 g/dL (12.0-16.0); IG# 0.07 K/uL (0.00-0.02); LYMPH % 16.2 %; LYMPH ABS # 1.82 K/uL (1.2-3.4); MEAN CELL VOLUME 88.7 fL (80-100); MEAN CORPUSCULAR HGB CONC 33.8 g/dl (32-36); MONO % 4.8 %; MONO ABS # 0.54 K/uL (0.11-0.59); NEUT % 74.6 %; NEUT ABS # 8.36 K/uL (1.4-6.5); PLATELET COUNT 316 K/uL (130-400); RED CELL DISTRIBUTION WIDTH CV 14.1 % (11.5-14.5); RED CELL DISTRIBUTION WIDTH SD 45.7 fL (36.4-46.3); WHITE BLOOD COUNT 11.22 K/uL (4.8-10.8)
[2017-12-26 13:33] LABS: ALBUMIN 3.5 gm/dl (3.4-5.0); CALCIUM 9.3 mg/dl (8.5-10.1); CREATININE 1.64 mg/dl (0.60-1.20); POTASSIUM 4.5 mmol/L (3.5-5.1); TOTAL PROTEIN 8.6 gm/dl (6.4-8.2)
[2017-12-26] MEDS ORDERED: GABA100C13 PO (13:59)
[2017-12-26] MEDS ORDERED: NovoLIN-R INSULIN PER UNIT CHARGE SC STA (14:23)
[2017-12-26] MEDS ORDERED: NovoLIN-R INSULIN PER UNIT CHARGE IV STA (14:23)
--- NOTE | 2017-12-26 14:57 | Pharmacy Progress Note ---
ED Pharmacist Progress Note Date of Service: Dec 26, 2017. Talked with patient about trouble paying for insulin, patient taking victoza and lantus. Asked patient if she has used a discount card previously as there are discount cards available for these medications. Patient recently lost job and lost insurance so she was unsure if the cards would still work, she is registered already. Patient presented cards and gave permission for me to call the companies/her pharmacy on her behalf. The lantus sanofi card is able to be used without private insurance, called and confirmed with her [facility]. The victoza card is unable to be used with without private insurance and she would need to register for a new program. Both program are unable to be used with medicaid/medicare. Presented the information to the patient who understood she would still be able to get her Lantus filled with no cost. Also discussed with Dr. Nicholas.
[2017-12-26 17:11] VITALS: BP 118/72; PULSE 87; O2SAT 100
--- NOTE | 2017-12-26 17:33 | EMERGENCY ROOM VISIT NOTE ---
History Report prepared by Elias: Sharon Escobar Under the Supervision of: Dr. Sean Nicholas D.O. First contact with patient: 12:11 Chief Complaint: HYPERGLYCEMIA Stated Complaint: DIABETIC,HIGH SUGAR History of Present Illness The patient is a 62 year old female who presents to the Emergency Room with complaints of constant high blood sugar beginning yesterday. The patient reports her blood sugar was 538 this morning. The patient reports she has not had her insulin in about five days. She reports she lost her insurance and cannot afford her insulin. She has not talked to her PCP since losing her insurance. She notes increased urination and dizziness with changing positions. She notes some abdominal nausea which is been present for the past couple days. She notes she has never let her blood sugars at this time. Pt denies headache , change in vision, fevers, chest pain, shortness of breath, vomiting, diarrhea , pain with urination, and melena. Source of History: patient Onset: yesterday Position: other (generalized) Symptom Intensity: 538 Quality: other (high blood sugar) Timing: constant Associated Symptoms: + abdominal pain, + urinary symptoms, No fevers, No chest pain, No SOB, No nausea, No vomiting, No diarrhea Review of Systems See HPI for pertinent positives & negatives. A total of 10 systems reviewed and were otherwise negative. Past Medical & Surgical Medical Problems: (1) Abdominal pain (2) Abdominal pain (3) Acute Venous Embolism & Thrombosis Unsp Deep Vessels Of Le (4) Contusion of multiple sites (5) Contusion of multiple sites (6) Depressive Disorder Nec (7) Diab Zhanna Wo Compl, Type Ii Or Unspec Type, Not Uncntrld (8) Diabetes (9) Diverticulitis Colon (W/O Ment Of Hemorrhage) (10) Diverticulosis Colon (W/O Ment Of Hemorrhage) (11) Esophageal Reflux (12) Fall (13) Fall (14) Fibromyalgia (15) History Of Tobacco Use (16) Hyperlipidemia Nec/Nos (17) Hypertension Nos (18) Hypomagnesemia (19) Hypothyroidism, Unspecified (20) Iatrogenic Pneumothorax (21) Incisional Hernia (22) LLQ abdominal pain (23) Morbid Obesity (24) Obstructive Sleep Apnea (Adult) (Pediatric) (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 (26) Sepsis Surgical Problems: (1) History of bowel resection (2) History of cholecystectomy (3) History of colostomy reversal (4) History of herniorrhaphy (5) History of thyroidectomy (6) Knee Joint Replacement Status Family History FH: depression Social History Smoking Status: Former Smoker Alcohol Use: occasionally Marital Status: Occupation Status: employed Current/Historical Medications Scheduled Clonazepam (Klonopin), 0.5 MG PO BID Gabapentin (Neurontin), 100 MG PO TID Home O2 Therapy (Oxygen), 4 LITERS NA HS Hydrochlorothiazide (Hydrochlorothiazide), 12.5 MG PO QAM Insulin Glargine (Lantus), 66 UNITS SC BID Levothyroxine Sodium (Levothyroxine Sodium), 25 MCG PO QAM Levothyroxine Sodium (Levothyroxine Sodium), 200 MCG PO QAM Liraglutide (Victoza), 1.8 MG INJ QPM Lisinopril (Zestril), 10 MG PO QAM Metformin Hcl Er (Glucophage Er), 500 MG PO DAILY Metoprolol Tartrate (Lopressor) (Lopressor), 25 MG PO BID Nortriptyline (Pamelor), 50 MG PO HS Omeprazole (Prilosec), 20 MG PO HS Ropinirole (Requip), 1 MG PO HS Sertraline (Zoloft), 100 MG PO QPM Allergies Coded Allergies: Tetanus Toxoid (Verified Allergy, Mild, PASSED OUT AND GOT SICK WHEN A CHILD, 12/26/17) Codeine (Verified Allergy, Unknown, HALLUCINATIONS, 12/26/17) Heparin (Verified Allergy, Unknown, HIT; FLUID IN LUNGS, 12/26/17) Morphine (Verified Allergy, Unknown, VIOLENT REACTION-"ALMOST " SWELLING, 12/26/17) Uncoded Allergies: HAY FEVER (Allergy, Unknown, UNKNOWN, 05/21/17) Physical Exam Vital Signs Date Time Temp Pulse Resp B/P (MAP) Pulse Ox O2 Delivery O2 Flow Rate FiO2 12/26/17 17:11 87 20 118/72 100 12/26/17 16:05 94 22 138/71 94 Room Air 12/26/17 14:09 86 22 115/50 98 Room Air 12/26/17 13:04 92 18 137/72 92 Room Air 12/26/17 11:55 36.7 90 20 108/73 92 Room Air Physical Exam GENERAL: Sitting up in bed, alert, well appearing, well nourished, no distress, non-toxic EYE EXAM: normal conjunctiva. PERRL and EOM's intact. OROPHARYNX: no exudate, no erythema, lips, buccal mucosa, and tongue normal and mucous membranes are moist NECK: supple, no nuchal rigidity, no adenopathy, non-tender LUNGS: Clear to auscultation. Normal chest wall mechanics HEART: no murmurs, S1 normal and S2 normal ABDOMEN: abdomen soft, non-tender, normo-active bowel sounds, no masses, no rebound or guarding. BACK: Back is symmetrical on inspection and there is no deformity, no midline tenderness, no CVA tenderness. SKIN: no rashes and no bruising UPPER EXTREMITIES: upper extremities are grossly normal. LOWER EXTREMITIES: No pitting edema. NEURO EXAM: Normal sensorium, cranial nerves II-XII intact, normal speech, no weakness of arms, no weakness of legs. No drift. Finger to nose intact. Gross sensation intact. Medical Decision & Procedures Laboratory Results 12/26/17 12:25 Red Blood Count 4.77, Mean Corpuscular Volume 88.7, Mean Corpuscular Hemoglobin 30.0, Mean Corpuscular Hemoglobin Concent 33.8, Mean Platelet Volume 10.0, Neutrophils (%) (Auto) 74.6, Lymphocytes (%) (Auto) 16.2, Monocytes (%) (Auto) 4.8, Eosinophils (%) (Auto) 3.4, Basophils (%) (Auto) 0.4, Neutrophils # (Auto) 8.36, Lymphocytes # (Auto) 1.82, Monocytes # (Auto) 0.54, Eosinophils # (Auto) 0.38, Basophils # (Auto) 0.05 12/26/17 12:25 Test 12/26/17 12:25 12/26/17 12:36 White Blood Count 11.22 K/uL (4.8-10.8) Red Blood Count 4.77 M/uL (4.2-5.4) Hemoglobin 14.3 g/dL (12.0-16.0) Hematocrit 42.3 % (37-47) Mean Corpuscular Volume 88.7 fL (80-100) Mean Corpuscular Hemoglobin 30.0 pg (25-34) Mean Corpuscular Hemoglobin Concent 33.8 g/dl (32-36) Platelet Count 316 K/uL (130-400) Mean Platelet Volume 10.0 fL (7.4-10.4) Neutrophils (%) (Auto) 74.6 % Lymphocytes (%) (Auto) 16.2 % Monocytes (%) (Auto) 4.8 % Eosinophils (%) (Auto) 3.4 % Basophils (%) (Auto) 0.4 % Neutrophils # (Auto) 8.36 K/uL (1.4-6.5) Lymphocytes # (Auto) 1.82 K/uL (1.2-3.4) Monocytes # (Auto) 0.54 K/uL (0.11-0.59) Eosinophils # (Auto) 0.38 K/uL (0-0.5) Basophils # (Auto) 0.05 K/uL (0-0.2) RDW Standard Deviation 45.7 fL (36.4-46.3) RDW Coefficient of Variation 14.1 % (11.5-14.5) Immature Granulocyte % (Auto) 0.6 % Immature Granulocyte # (Auto) 0.07 K/uL (0.00-0.02) Anion Gap 11.0 mmol/L (3-11) Est Creatinine Clear Calc Drug Dose 51.7 ml/min Estimated GFR () 38.4 Estimated GFR (Non- 33.2 BUN/Creatinine Ratio 18.4 (10-20) Calcium Level 9.3 mg/dl (8.5-10.1) Total Bilirubin 0.4 mg/dl (0.2-1) Direct Bilirubin 0.1 mg/dl (0-0.2) Aspartate Amino Transf (AST/SGOT) 38 U/L (15-37) Alanine Aminotransferase (ALT/SGPT) 45 U/L (12-78) Alkaline Phosphatase 100 U/L (45-117) Total Protein 8.6 gm/dl (6.4-8.2) Albumin 3.5 gm/dl (3.4-5.0) Lipase 296 U/L (73-393) Beta-Hydroxybutyric Acid 3.49 mg/dL (0.2-2.81) Urine Color YELLOW Urine Appearance CLEAR (CLEAR) Urine pH 5.0 (4.5-7.5) Urine Specific [place] 1.025 (1.000-1.030) Urine Protein NEG (NEG) Urine Glucose (UA) 3+ (NEG) Urine Ketones NEG (NEG) Urine Occult Blood NEG (NEG) Urine Nitrite NEG (NEG) Urine Bilirubin NEG (NEG) Urine Urobilinogen NEG (NEG) Urine Leukocyte Esterase NEG (NEG) Urine WBC (Auto) 5-10 /hpf (0-5) Urine RBC (Auto) 0-4 /hpf (0-4) Urine Hyaline Casts (Auto) 0 /lpf (0-5) Urine Epithelial Cells (Auto) >30 /lpf (0-5) Urine Bacteria (Auto) NEG (NEG) Urine Test NEG (NEG) Laboratory results per my review. Medications Administered Medications (Trade) Dose Ordered Sig/Jevon Route Start Time Stop Time Status Last Admin Dose Admin Sodium Chloride 2,000 ml @ 999 mls/hr Q2H1M STAT IV 12/26/17 12:17 12/26/17 14:17 DC 12/26/17 12:36 999 MLS/HR Ondansetron HCl (Zofran Inj) 4 mg NOW STAT IV 12/26/17 12:17 12/26/17 12:18 DC 12/26/17 12:24 4 MG Insulin Human Regular (novoLIN-R U-100 PER UNIT) 10 units NOW STAT IV 12/26/17 14:23 12/26/17 14:24 DC 12/26/17 14:45 10 UNITS Insulin Human Regular (novoLIN-R U-100 PER UNIT) 6 units NOW STAT SC 12/26/17 14:23 12/26/17 14:24 DC 12/26/17 14:46 6 UNITS ED Course ED COURSE: Vital signs were reviewed and showed normal The patients medical record was reviewed The above diagnostic studies were performed and reviewed. ED treatments and interventions as stated above. 1212: The patient was evaluated in room C1B. A complete history and physical examination was performed. 1217: Ordered Zofran Inj 4 mg, Sodium Chloride 2000 ml @ 999 mls/hr IV. 1420: I updated the patient on her test results. She is now asymptomatic. 1423: Ordered Insulin Human Regular 6 units SC, Insulin Human Regular 10 units IV. 1545: The patient is resting comfortably. 1628: The patient's blood sugar is currently is 330. 1631: I updated the patient on her test results. 1638: Upon reevaluation, the patient is resting comfortably.I discussed my findings with the patient and she understands and agrees with the treatment plan. Based on the patients age, coexisting illnesses, exam and lab findings the decision to treat as an outpatient was made. The patient remained stable while under my care. The patient appeared well at the time of discharge. Medical Decision Differential diagnoses includes but is not limited to acute coronary syndrome, myocardial infarction, pericarditis, pulmonary embolus, aortic dissection, pneumonia, pneumothorax, musculoskeletal, shingles, esophageal. Patient is a 62-year-old female who presents the ER for elevated blood sugar. Patient has not been taking her insulin as she cannot afford it. She admits to mild positional dizziness. She also admits to nausea. CBC shows a mild leukocytosis. No anemia. BSG was 527. Sodium was slightly low at 128 but corrected was normal. Creatinine 1.6 with a slightly elevated BUN suggesting dehydration. Bilirubin along with LFTs were normal and lipase was normal. Beta hydroxybutyric acid was only mildly elevated at 3.5. No ketones in the urine. No signs of infection. Patient was given 2 L normal saline. She is given 10 units IV insulin. She was also given 6 units subcu. There is no gap. Nothing to suggest DKA. She was able to tolerate oral fluids. Her pharmacist checked on her Lantus and it is currently provided at her pharmacy free of charge for her. Based on this I favored it was reasonable to discharge her as she was feeling significant better had complete resolution of her symptoms to follow-up as an outpatient and continue taking her Lantus and follow -up with PCP for additional guidelines to treatment of her blood sugars. Discussed with Pt concerning signs and symptoms to watch out for. Pt was instructed to follow up with their PCP and discussed with the patient their option to return to the ED at anytime for persistent or worsening symptoms. The appropriate anticipatory guidance and out-patient management, including indications for return to the emergency department, were explained at length to the patient and understood. Medication Reconcilliation Current Medication List: was personally reviewed by me Blood Pressure Screening Patient's blood pressure: Normal blood pressure Impression Primary Impression: Hyperglycemia Scribe Attestation The scribe's documentation has been prepared under my direction and personally reviewed by me in its entirety. I confirm that the note above accurately reflects all work, treatment, procedures, and medical decision making performed by me. Departure Information Dispostion Home / Self-Care Referrals Teddy De Oliveira M.D. (PCP) Forms HOME CARE DOCUMENTATION FORM, IMPORTANT VISIT INFORMATION, WORK / SCHOOL INSTRUCTIONS Patient Instructions Blood Sugar High Ch, My [facility] Additional Instructions Please follow up with your primary care doctor with in the next 24 hours. Any worsening of your symptoms, please return to the ED immediately. This includes any fevers greater than 100.4, worsening pain, chest pain, shortness breath, persistent nausea, vomiting, unable to eat or drink, or any other concerning signs or symptoms from your standpoint. Please picker box operator her Lantus at the pharmacy when you leave here and use it as previously prescribed. Please follow-up with your PCP as soon as possible to discuss additional insulin management.
== END 2017-12-26 17:12 | disposition home or self-care (01) ==
LOC: C.EDB 11:52 → C.EDC 17:12
DX: R73.9 Hyperglycemia, unspecified (principal); E11.9 Type 2 diabetes mellitus without complications; E78.5 Hyperlipidemia, unspecified; I10 Essential (primary) hypertension; E03.9 Hypothyroidism, unspecified; E66.01 Morbid (severe) obesity due to excess calories; G47.33 Obstructive sleep apnea (adult) (pediatric); Z87.891 Personal history of nicotine dependence; Z79.4 Long term (current) use of insulin; Z88.8 Allergy status to other drugs, medicaments and biological substances; Z88.5 Allergy status to narcotic agent

== ENCOUNTER 2018-12-08 16:32 | Inpatient (IN) ==
--- NOTE | 2018-12-08 17:00 | Emergency Department Note ---
Entered by Lillian Auguste acting as a scribe for Bright Rodriguez DO History of Present Illness General Chief complaint: Shortness of Breath/Dyspnea Stated complaint: SOB Source: patient History of Present Illness Provider complaint: shortness of breath Onset (ago): day(s) 4 Location: chest Quality: + other (shortness of breath ) Associated symptoms: + cough and + other (weight gain); no chest pain, no fever/chills and no nausea/vomiting The patient is a 63 year old female who presents to the Emergency Room with complaints of shortness of breath over the last 4 days. The patient states that she has CHF and gained 5 pounds over the last 4-5 days. She reports that she doubled up on her water pills. The patient denies having chest pain, nausea, vomiting, and fevers but reports having an intermittent dry cough. The patient states that she wears Oxygen at night. She states that her sugars have been el evated in the 300s. The patient reports a history of a blood clot in her leg in 2010. Home Medications Home Medications Medication Instructions Recorded Confirmed Type clonazepam 0.5 mg PO BID 06/09/18 12/08/18 History gabapentin 300 mg PO TID 06/09/18 12/08/18 History levothyroxine 25 mcg PO DAILY 06/09/18 12/08/18 History levothyroxine 200 mcg PO DAILY 06/09/18 12/08/18 History metoprolol tartrate 50 mg PO BID 06/09/18 12/08/18 History nortriptyline [Pamelor] 50 mg PO HS 06/09/18 12/08/18 History omeprazole 20 mg PO HS 06/09/18 12/08/18 History ropinirole 1 mg PO HS 06/09/18 12/08/18 History liraglutide 1.8 mg SUBCUT DAILY 06/10/18 12/08/18 History cyclobenzaprine 10 mg PO HS PRN 12/08/18 12/08/18 History duloxetine 30 mg PO HS 12/08/18 12/08/18 History ergocalciferol (vitamin D2) 50,000 unit PO WK 12/08/18 12/08/18 History [Vitamin D2] furosemide 80 mg PO DAILY 12/08/18 12/08/18 History insulin aspart U-100 [Novolog 1 sliding scale dose SUBCUT AC 12/08/18 12/08/18 History Flexpen U-100 Insulin] insulin degludec [Tresiba 160 units SUBCUT HS 12/08/18 12/08/18 History FlexTouch U-200] lisinopril 2.5 mg PO DAILY 12/08/18 12/08/18 History magnesium chloride [Mag 64] 64 mg PO BID 12/08/18 12/08/18 History Allergies Allergy/AdvReac Type Severity Reaction Status Date / Time tetanus toxoid, adsorbed Allergy Mild PASSED OUT Verified 12/08/18 18:38 AND GOT SICK WHEN A CHILD codeine Allergy Unknown Hallucinati Verified 12/08/18 18:42 ons heparin Allergy Unknown HIT; FLUID Verified 12/08/18 18:38 IN LUNGS morphine Allergy Unknown VIOLENT Verified 12/08/18 18:38 REACTION-"ALMOST " SWELLING HAY FEVER Allergy Unknown UNKNOWN Uncoded 12/08/18 18:38 Past Med/Surg History Medical History CKD (chronic kidney disease), stage III (Chronic) ELISSA on CPAP (Chronic) HTN (hypertension) (Chronic) HLD (hyperlipidemia) (Chronic) Morbid obesity (Chronic) 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) Depression with anxiety (Chronic) Hypothyroidism (Chronic) History of pulmonary embolism (Chronic) s/p zoraida filter GERD (gastroesophageal reflux disease) (Chronic) RLS (restless legs syndrome) (Chronic) History of DVT (deep vein thrombosis) (Resolved) Presence of IVC filter (Chronic) Fibromyalgia (Chronic) Diabetes (Chronic) Sepsis (Resolved) Surgical History History of cholecystectomy (Resolved) History of total right knee replacement (Resolved) History of tracheostomy (Resolved) 2010, secondary to acute resp failure secondary to pneumonia, transferred to [facility] [place] History of thyroidectomy, total (Resolved) History of colon resection (Resolved) secondary to R colon perforation, resected treated with colostomy and eventual reversal in 2008, Dr. Lerma Family History Father , age 74 Lung cancer Mother , age 45 Cirrhosis Social History Communication Ability: Effective Beliefs That Will Affect Care: None Current Living Situation: Alone Other Information That Helps Us Care for You: No Feels Safe at Home: Yes Safety Concerns: Feels Safe At This Time Smoking Status: Never smoker Hx Alcohol Use: No Hx Substance Use: No Review of Systems See HPI for pertinent positives & negatives. and A total of 10 systems reviewed and were otherwise negative Physical Exam Vital Signs Vital Signs - 24 hr 12/08/18 16:47 12/08/18 16:50 12/08/18 17:03 Temperature Temperature Source Pulse Rate 90 Pulse Rate [Finger] 93 H Pulse Rate from SpO2 Sensor 91 H Respiratory Rate 15 21 Respiratory Effort / Characteristics Respiratory Depth Respiratory Pattern Blood Pressure Blood Pressure [Left Arm] Blood Pressure [Right Arm] Blood Pressure Mean Blood Pressure Mean [Left Arm] Blood Pressure Mean [Right Arm] Blood Pressure Position [Left Arm] Blood Pressure Position [Right Arm] Pulse Oximetry 88 L 93 93 Oxygen Delivery Method Room Air Nasal Cannula Oxygen Flow Rate 3 12/08/18 17:10 12/08/18 17:20 12/08/18 17:30 Temperature Temperature Source Pulse Rate 100 H 95 H Pulse Rate [Finger] Pulse Rate from SpO2 Sensor 95 H 94 H 93 H Respiratory Rate 21 Respiratory Effort / Characteristics Respiratory Depth Respiratory Pattern Blood Pressure Blood Pressure [Left Arm] Blood Pressure [Right Arm] Blood Pressure Mean Blood Pressure Mean [Left Arm] Blood Pressure Mean [Right Arm] Blood Pressure Position [Left Arm] Blood Pressure Position [Right Arm] Pulse Oximetry 93 95 93 Oxygen Delivery Method Oxygen Flow Rate 12/08/18 17:40 12/08/18 18:09 12/08/18 18:10 Temperature Temperature Source Pulse Rate 92 H 107 H 90 Pulse Rate [Finger] Pulse Rate from SpO2 Sensor 92 H 92 H 88 Respiratory Rate 20 18 23 Respiratory Effort / Characteristics Respiratory Depth Respiratory Pattern Blood Pressure Blood Pressure [Left Arm] Blood Pressure [Right Arm] Blood Pressure Mean Blood Pressure Mean [Left Arm] Blood Pressure Mean [Right Arm] Blood Pressure Position [Left Arm] Blood Pressure Position [Right Arm] Pulse Oximetry 92 96 94 Oxygen Delivery Method Oxygen Flow Rate 12/08/18 18:20 12/08/18 18:30 12/08/18 18:31 Temperature Temperature Source Pulse Rate 89 90 90 Pulse Rate [Finger] 89 Pulse Rate from SpO2 Sensor 90 90 90 Respiratory Rate 24 19 21 Respiratory Effort / Characteristics Respiratory Depth Respiratory Pattern Blood Pressure 99/56 L Blood Pressure [Left Arm] Blood Pressure [Right Arm] 99/56 L Blood Pressure Mean 70 Blood Pressure Mean [Left Arm] Blood Pressure Mean [Right Arm] 70 Blood Pressure Position [Left Arm] Blood Pressure Position [Right Arm] Pulse Oximetry 94 93 92 Oxygen Delivery Method Nasal Cannula Oxygen Flow Rate 3 12/08/18 18:40 12/08/18 18:50 12/08/18 19:00 Temperature Temperature Source Pulse Rate 86 89 88 Pulse Rate [Finger] Pulse Rate from SpO2 Sensor 85 88 87 Respiratory Rate 23 24 21 Respiratory Effort / Characteristics Respiratory Depth Respiratory Pattern Blood Pressure Blood Pressure [Left Arm] Blood Pressure [Right Arm] Blood Pressure Mean Blood Pressure Mean [Left Arm] Blood Pressure Mean [Right Arm] Blood Pressure Position [Left Arm] Blood Pressure Position [Right Arm] Pulse Oximetry 94 97 97 Oxygen Delivery Method Oxygen Flow Rate 12/08/18 19:01 12/08/18 19:10 12/08/18 19:20 Temperature Temperature Source Pulse Rate 88 88 89 Pulse Rate [Finger] Pulse Rate from SpO2 Sensor 88 88 88 Respiratory Rate 17 22 18 Respiratory Effort / Characteristics Respiratory Depth Respiratory Pattern Blood Pressure 120/53 L Blood Pressure [Left Arm] Blood Pressure [Right Arm] Blood Pressure Mean 75 Blood Pressure Mean [Left Arm] Blood Pressure Mean [Right Arm] Blood Pressure Position [Left Arm] Blood Pressure Position [Right Arm] Pulse Oximetry 97 97 96 Oxygen Delivery Method Oxygen Flow Rate 12/08/18 19:22 12/08/18 19:30 12/08/18 19:39 Temperature Temperature Source Pulse Rate 92 H 92 H Pulse Rate [Finger] 90 Pulse Rate from SpO2 Sensor 93 H Respiratory Rate 24 24 24 Respiratory Effort / Characteristics Respiratory Depth Respiratory Pattern Blood Pressure 129/74 129/74 Blood Pressure [Left Arm] Blood Pressure [Right Arm] 120/53 L Blood Pressure Mean 92 Blood Pressure Mean [Left Arm] Blood Pressure Mean [Right Arm] 75 Blood Pressure Position [Left Arm] Blood Pressure Position [Right Arm] Pulse Oximetry 92 96 96 Oxygen Delivery Method Nasal Cannula Nasal Cannula Oxygen Flow Rate 3 3 12/08/18 19:55 12/08/18 20:05 12/08/18 21:00 Temperature 36.7 C Temperature Source Oral Pulse Rate 94 H 91 H Pulse Rate [Finger] 94 H Pulse Rate from SpO2 Sensor Respiratory Rate 22 20 Respiratory Effort / Characteristics Spontaneous SOB on Exertion Non-Labored Spontaneous Respiratory Depth Normal Normal Respiratory Pattern Tachypnea Regular Blood Pressure Blood Pressure [Left Arm] Blood Pressure [Right Arm] 172/77 H Blood Pressure Mean Blood Pressure Mean [Left Arm] Blood Pressure Mean [Right Arm] 108 Blood Pressure Position [Left Arm] Blood Pressure Position [Right Arm] Pulse Oximetry 95 96 Oxygen Delivery Method Nasal Cannula Oxygen Flow Rate 2 4 12/08/18 23:36 12/09/18 00:22 12/09/18 04:38 Temperature 36.6 C 36.6 C Temperature Source Oral Oral Pulse Rate 89 Pulse Rate [Finger] 82 76 Pulse Rate from SpO2 Sensor Respiratory Rate 20 20 Respiratory Effort / Characteristics Respiratory Depth Respiratory Pattern Blood Pressure Blood Pressure [Left Arm] 145/69 H 150/72 H Blood Pressure [Right Arm] Blood Pressure Mean Blood Pressure Mean [Left Arm] 94 98 Blood Pressure Mean [Right Arm] Blood Pressure Position [Left Arm] Blood Pressure Position [Right Arm] Pulse Oximetry 97 95 Oxygen Delivery Method Nasal Cannula Nasal Cannula Oxygen Flow Rate 2 2 12/09/18 07:29 12/09/18 08:00 12/09/18 11:30 Temperature 36.3 C L 36.6 C Temperature Source Oral Oral Pulse Rate Pulse Rate [Finger] 79 86 Pulse Rate from SpO2 Sensor Respiratory Rate 22 20 Respiratory Effort / Characteristics SOB on Exertion Respiratory Depth Respiratory Pattern Regular Blood Pressure Blood Pressure [Left Arm] 169/84 H 115/51 L Blood Pressure [Right Arm] 142/81 H Blood Pressure Mean Blood Pressure Mean [Left Arm] 112 72 Blood Pressure Mean [Right Arm] 101 Blood Pressure Position [Left Arm] Sitting Lying Blood Pressure Position [Right Arm] Sitting Pulse Oximetry 96 94 Oxygen Delivery Method Nasal Cannula Nasal Cannula Nasal Cannula Oxygen Flow Rate 2 2 2 12/09/18 15:10 Temperature 36.6 C Temperature Source Oral Pulse Rate Pulse Rate [Finger] 81 Pulse Rate from SpO2 Sensor Respiratory Rate 18 Respiratory Effort / Characteristics Respiratory Depth Respiratory Pattern Blood Pressure Blood Pressure [Left Arm] 153/74 H Blood Pressure [Right Arm] Blood Pressure Mean Blood Pressure Mean [Left Arm] 100 Blood Pressure Mean [Right Arm] Blood Pressure Position [Left Arm] Sitting Blood Pressure Position [Right Arm] Pulse Oximetry 95 Oxygen Delivery Method Nasal Cannula Oxygen Flow Rate 2 GENERAL: Patient is awake alert in no acute distress patient is resting comfortably and showing no signs of anxiety EYES: The conjunctivae are clear. The pupils are round and reactive. EARS, NOSE, MOUTH AND THROAT: The nose is without any evidence of any deformity. Mucous membranes are moist tongue is midline NECK: The neck is nontender and supple. RESPIRATORY: Diminished breath sounds were noted throughout. There were rales at both bases. There was significant conversational dyspnea noted. CARDIOVASCULAR: Regular rate and rhythm noted there no murmurs rubs or gallops normal S1 normal S2 GASTROINTESTINAL: The abdomen is soft. Bowel sounds are present in all quadrants. Abdomen is nontender MUSCULOSKELETAL/EXTREMITIES: There is no evidence of gross deformity full range of motion is noted in the hips and shoulders SKIN: There is pedal edema bilaterally. NEUROLOGIC: Patient is awake alert and oriented x3. Course 1646: Past medical records reviewed. The patient was evaluated in room A12A, and a complete history and physical examination were performed. 180: I updated the patient who verbalized agreement and understanding of the treatment plan. 1813: I discussed the patient's case with Greer Sylvester who will evaluate the patient for further management. Consultations Consultation #1: Greer Sylvester Time: 18:14 Administered Medications Acetaminophen (Tylenol) 650 mg PO Q4H PRN PRN Reason: Pain or Fever Stop: 01/07/19 19:54 Last Admin: 12/09/18 03:31 Dose: 650 mg Documented by: [id number] Admin: 12/08/18 20:41 Dose: 650 mg Documented by: [id number] Clonazepam (Klonopin) 0.5 mg PO BID ROBERT Stop: 01/07/19 20:59 Last Admin: 12/09/18 07:28 Dose: 0.5 mg Documented by: [id number] Admin: 12/08/18 21:28 Dose: 0.5 mg Documented by: [id number] Cyclobenzaprine HCl (Flexeril) 10 mg PO HS PRN PRN Reason: Muscle Spasm Stop: 01/07/19 19:54 Last Admin: 12/08/18 21:21 Dose: 10 mg Documented by: [id number] Duloxetine HCl (Cymbalta) 30 mg PO HS ROBERT Stop: 01/07/19 20:59 Last Admin: 12/08/18 21:22 Dose: 30 mg Documented by: [id number] Gabapentin (Neurontin) 300 mg PO TID ROBERT Stop: 01/07/19 20:59 Last Admin: 12/09/18 14:58 Dose: 300 mg Documented by: [id number] Admin: 12/09/18 09:01 Dose: 300 mg Documented by: [id number] Admin: 12/08/18 21:23 Dose: 300 mg Documented by: [id number] Furosemide 40 mg/ Syringe 4 mls @ 4 mls/min IV BID17 ROBERT Stop: 01/08/19 09:59 Last Admin: 12/09/18 16:37 Dose: 4 mls/min Documented by: [id number] Admin: 12/09/18 10:54 Dose: 4 mls/min Documented by: [id number] Insulin Aspart (Novolog Flexpen) 0 units SC ACHS [facility] Stop: 01/07/19 20:59 Last Admin: 12/09/18 12:42 Dose: 14 units Documented by: [id number] Cosigned by: [id number] Admin: 12/09/18 09:07 Dose: 7 units Documented by: [id number] Cosigned by: [id number] Admin: 12/08/18 21:29 Dose: 14 units Documented by: [id number] Cosigned by: [id number] Insulin Glargine (Lantus) 80 units SC Q12 ROBERT Stop: 01/07/19 20:59 Last Admin: 12/09/18 09:04 Dose: 80 units Documented by: [id number] Cosigned by: [id number] Admin: 12/08/18 21:30 Dose: 80 units Documented by: [id number] Cosigned by: [id number] Levothyroxine Sodium (Synthroid) 25 mcg PO DAILYBB [facility] Stop: 01/08/19 06:29 Last Admin: 12/09/18 05:20 Dose: 25 mcg Documented by: [id number] Levothyroxine Sodium (Synthroid) 200 mcg PO DAILYBB [facility] Stop: 01/08/19 06:29 Last Admin: 12/09/18 05:20 Dose: 200 mcg Documented by: [id number] Metoprolol Tartrate (Lopressor) 50 mg PO BID [facility] Stop: 01/07/19 20:59 Last Admin: 12/09/18 09:01 Dose: 50 mg Documented by: [id number] Admin: 12/08/18 21:23 Dose: 50 mg Documented by: [id number] Nortriptyline HCl (Pamelor) 50 mg PO HS ROBERT Stop: 01/07/19 20:59 Last Admin: 12/08/18 21:24 Dose: 50 mg Documented by: [id number] Pantoprazole Sodium (Protonix) 40 mg PO HS ROBERT Stop: 01/07/19 20:59 Last Admin: 12/08/18 21:24 Dose: 40 mg Documented by: [id number] Ropinirole HCl (Requip) 1 mg PO HS ROBERT Stop: 01/07/19 20:59 Last Admin: 12/08/18 21:25 Dose: 1 mg Documented by: [id number] Spironolactone (Aldactone) 12.5 mg PO DAILY ROBERT Stop: 01/08/19 11:44 Last Admin: 12/09/18 12:23 Dose: 12.5 mg Documented by: [id number] Tramadol HCl (Ultram) 50 mg PO Q6H PRN PRN Reason: Pain Stop: 01/08/19 09:14 Last Admin: 12/09/18 16:37 Dose: 50 mg Documented by: [id number] Admin: 12/09/18 10:53 Dose: 50 mg Documented by: [id number] Discontinued Medications Furosemide 40 mg/ Syringe 4 mls @ 4 mls/min IV ONE ONE Stop: 12/08/18 17:53 Last Admin: 12/08/18 19:29 Dose: 4 mls/min Documented by: [id number] Magnesium Sulfate/Dextrose (Magnesium Sulfate / D5w) 1 gm in 100 mls @ 100 mls/hr IV ONE ONE Stop: 12/08/18 18:51 Last Infusion: 12/08/18 19:21 Dose: 0 mls/hr Documented by: [id number] Admin: 12/08/18 18:18 Dose: 100 mls/hr Documented by: [id number] Magnesium Sulfate/Dextrose (Magnesium Sulfate / D5w) 1 gm in 100 mls @ 100 mls/hr IV ONE ONE Stop: 12/08/18 21:44 Last Infusion: 12/08/18 22:30 Dose: 0 mls/hr Documented by: [id number] Admin: 12/08/18 21:13 Dose: 100 mls/hr Documented by: [id number] Furosemide 40 mg/ Syringe 4 mls @ 4 mls/min IV ONE ONE Stop: 12/08/18 20:31 Last Admin: 12/08/18 21:13 Dose: 4 mls/min Documented by: [id number] Furosemide 80 mg/ Syringe 8 mls @ 4 mls/min IV ONE ONE Stop: 12/09/18 09:01 Last Admin: 12/09/18 09:12 Dose: Not Given Documented by: [id number] Medical Decision Making Differential Diagnosis Differential diagnosis: Etiologies such as infections, reactive airway disease, COPD, pneumonia, pleural effusion, pulmonary edema, ARDS, pneumothorax, CHF, cardiac ischemia, cardiac tamponade, dysrhythmia, anemia, pulmonary embolism, musculoskeletal, gastrointestinal process, as well as others were entertained. Medical Records Attestation: I reviewed the patient's medical records. Home Medications Current Medication List: was personally reviewed by me Laboratory Data Attestation: I reviewed the patient's lab results. Result diagrams: 12/09/18 05:30 12/09/18 05:30 Lab Results 12/08/18 12/08/18 12/08/18 Range/Units 17:00 17:00 17:00 WBC 9.18 (4.8-10.8) K/uL RBC 4.34 (4.2-5.4) M/uL Hgb 12.7 (12.0-16.0) g/dL Hct 40.1 (37-47) % MCV 92.4 (80-100) fL MCH 29.3 (25-34) pg MCHC 31.7 L (32-36) g/dL RDW Std Deviation 51.9 H (36.4-46.3) fL RDW Coeff of Adolfo 15.2 H (11.5-14.5) % Plt Count 273 (130-400) K/uL MPV 10.1 (7.4-10.4) fL Immature Gran % (Auto) 0.9 % Neut % (Auto) 67.4 % Lymph % (Auto) 22.0 % Cassia % (Auto) 5.6 % Eos % (Auto) 3.6 % Baso % (Auto) 0.5 % Immature Gran # (Auto) 0.08 H (0.00-0.02) K/uL Neut # (Auto) 6.19 (1.4-6.5) K/uL Lymph # (Auto) 2.02 (1.2-3.4) K/uL Cassia # (Auto) 0.51 (0.11-0.59) K/uL Eos # (Auto) 0.33 (0-0.5) K/uL Baso # (Auto) 0.05 (0-0.2) K/uL PT 10.6 (9.0-12.0) Seconds INR 1.0 (0.9-1.1) APTT 24.5 (21.0-31.0) Seconds PTT Ratio 0.9 D-Dimer 490 (0-500) ug/L FEU Sodium 136 (136-145) mmol/L Potassium 4.1 (3.5-5.1) mmol/L Chloride 101 (98-107) mmol/L Carbon Dioxide 26 (21-32) mmol/L Anion Gap 9.0 (3-11) BUN 41 H (7-18) mg/dl Creatinine 1.95 H (0.6-1.2) mg/dl Est Cr Clr Drug Dosing 45.2 ml/min Est GFR ( Amer) 31.0 Est GFR (Non-Af Amer) 26.7 BUN/Creatinine Ratio 20.9 H (10-20) Glucose 314 H (70-99) mg/dl POC Glucose (70-99) Calcium 8.5 (8.5-10.1) mg/dl Magnesium 1.4 L (1.8-2.4) mg/dl Total Bilirubin 0.3 (0.2-1) mg/dl AST 33 (15-37) U/L ALT 33 (12-78) U/L Alkaline Phosphatase 102 (45-117) U/L Troponin I < 0.015 (0-0.045) ng/ml NT-Pro-B Natriuret Pep 104 (0-900) pg/ml Total Protein 7.9 (6.4-8.2) gm/dl Albumin 3.2 L (3.4-5.0) gm/dl Globulin 4.7 H (2.5-4.0) gm/dl Albumin/Globulin Ratio 0.7 L (0.9-2) Beta-Hydroxybutyric Acd 1.18 (0.2-2.81) mg/dl TSH (0.300-4.500) uIu/ml Urine Color Urine Appearance (Clear) Urine pH (4.5-7.5) Ur Specific [place] (1.000-1.030) Urine Protein (Negative) Urine Glucose (UA) (Negative) Urine Ketones (Negative) Urine Blood (Negative) Urine Nitrite (Negative) Urine Bilirubin (Negative) Urine Urobilinogen (Negative) Ur Leukocyte Esterase (Negative) Urine WBC (Auto) (0-5) /hpf Urine RBC (Auto) (0-4) /hpf U Hyaline Cast (Auto) (0-5) /lpf U Epithel Cells (Auto) (0-5) /lpf Urine Bacteria (Auto) (Negative) 12/08/18 12/08/18 12/08/18 Range/Units 17:00 18:10 20:17 WBC (4.8-10.8) K/uL RBC (4.2-5.4) M/uL Hgb (12.0-16.0) g/dL Hct (37-47) % MCV (80-100) fL MCH (25-34) pg MCHC (32-36) g/dL RDW Std Deviation (36.4-46.3) fL RDW Coeff of Adolfo (11.5-14.5) % Plt Count (130-400) K/uL MPV (7.4-10.4) fL Immature Gran % (Auto) % Neut % (Auto) % Lymph % (Auto) % Cassia % (Auto) % Eos % (Auto) % Baso % (Auto) % Immature Gran # (Auto) (0.00-0.02) K/uL Neut # (Auto) (1.4-6.5) K/uL Lymph # (Auto) (1.2-3.4) K/uL Cassia # (Auto) (0.11-0.59) K/uL Eos # (Auto) (0-0.5) K/uL Baso # (Auto) (0-0.2) K/uL PT (9.0-12.0) Seconds INR (0.9-1.1) APTT (21.0-31.0) Seconds PTT Ratio D-Dimer (0-500) ug/L FEU Sodium (136-145) mmol/L Potassium (3.5-5.1) mmol/L Chloride (98-107) mmol/L Carbon Dioxide (21-32) mmol/L Anion Gap (3-11) BUN (7-18) mg/dl Creatinine (0.6-1.2) mg/dl Est Cr Clr Drug Dosing ml/min Est GFR ( Amer) Est GFR (Non-Af Amer) BUN/Creatinine Ratio (10-20) Glucose (70-99) mg/dl POC Glucose 264 H (70-99) Calcium (8.5-10.1) mg/dl Magnesium (1.8-2.4) mg/dl Total Bilirubin (0.2-1) mg/dl AST (15-37) U/L ALT (12-78) U/L Alkaline Phosphatase (45-117) U/L Troponin I (0-0.045) ng/ml NT-Pro-B Natriuret Pep Cancelled (0-900) pg/ml Total Protein (6.4-8.2) gm/dl Albumin (3.4-5.0) gm/dl Globulin (2.5-4.0) gm/dl Albumin/Globulin Ratio (0.9-2) Beta-Hydroxybutyric Acd (0.2-2.81) mg/dl TSH (0.300-4.500) uIu/ml Urine Color Yellow Urine Appearance Clear (Clear) Urine pH 5.0 (4.5-7.5) Ur Specific [place] 1.017 (1.000-1.030) Urine Protein Negative (Negative) Urine Glucose (UA) Negative (Negative) Urine Ketones Negative (Negative) Urine Blood Negative (Negative) Urine Nitrite Negative (Negative) Urine Bilirubin Negative (Negative) Urine Urobilinogen Negative (Negative) Ur Leukocyte Esterase 1+ H (Negative) Urine WBC (Auto) 5-10 H (0-5) /hpf Urine RBC (Auto) 0-4 (0-4) /hpf U Hyaline Cast (Auto) 0 (0-5) /lpf U Epithel Cells (Auto) 10-20 H (0-5) /lpf Urine Bacteria (Auto) Negative (Negative) 12/08/18 12/09/18 12/09/18 Range/Units 23:06 05:18 05:30 WBC 11.25 H (4.8-10.8) K/uL RBC 4.50 (4.2-5.4) M/uL Hgb 13.6 (12.0-16.0) g/dL Hct 41.8 (37-47) % MCV 92.9 (80-100) fL MCH 30.2 (25-34) pg MCHC 32.5 (32-36) g/dL RDW Std Deviation 51.4 H (36.4-46.3) fL RDW Coeff of Adolfo 15.2 H (11.5-14.5) % Plt Count 286 (130-400) K/uL MPV 10.2 (7.4-10.4) fL Immature Gran % (Auto) % Neut % (Auto) % Lymph % (Auto) % Cassia % (Auto) % Eos % (Auto) % Baso % (Auto) % Immature Gran # (Auto) (0.00-0.02) K/uL Neut # (Auto) (1.4-6.5) K/uL Lymph # (Auto) (1.2-3.4) K/uL Cassia # (Auto) (0.11-0.59) K/uL Eos # (Auto) (0-0.5) K/uL Baso # (Auto) (0-0.2) K/uL PT (9.0-12.0) Seconds INR (0.9-1.1) APTT (21.0-31.0) Seconds PTT Ratio D-Dimer (0-500) ug/L FEU Sodium (136-145) mmol/L Potassium (3.5-5.1) mmol/L Chloride (98-107) mmol/L Carbon Dioxide (21-32) mmol/L Anion Gap (3-11) BUN (7-18) mg/dl Creatinine (0.6-1.2) mg/dl Est Cr Clr Drug Dosing ml/min Est GFR ( Amer) Est GFR (Non-Af Amer) BUN/Creatinine Ratio (10-20) Glucose (70-99) mg/dl POC Glucose 187 H (70-99) Calcium (8.5-10.1) mg/dl Magnesium (1.8-2.4) mg/dl Total Bilirubin (0.2-1) mg/dl AST (15-37) U/L ALT (12-78) U/L Alkaline Phosphatase (45-117) U/L Troponin I < 0.015 (0-0.045) ng/ml NT-Pro-B Natriuret Pep (0-900) pg/ml Total Protein (6.4-8.2) gm/dl Albumin (3.4-5.0) gm/dl Globulin (2.5-4.0) gm/dl Albumin/Globulin Ratio (0.9-2) Beta-Hydroxybutyric Acd (0.2-2.81) mg/dl TSH (0.300-4.500) uIu/ml Urine Color Urine Appearance (Clear) Urine pH (4.5-7.5) Ur Specific [place] (1.000-1.030) Urine Protein (Negative) Urine Glucose (UA) (Negative) Urine Ketones (Negative) Urine Blood (Negative) Urine Nitrite (Negative) Urine Bilirubin (Negative) Urine Urobilinogen (Negative) Ur Leukocyte Esterase (Negative) Urine WBC (Auto) (0-5) /hpf Urine RBC (Auto) (0-4) /hpf U Hyaline Cast (Auto) (0-5) /lpf U Epithel Cells (Auto) (0-5) /lpf Urine Bacteria (Auto) (Negative) 12/09/18 12/09/18 12/09/18 Range/Units 05:30 07:36 11:41 WBC (4.8-10.8) K/uL RBC (4.2-5.4) M/uL Hgb (12.0-16.0) g/dL Hct (37-47) % MCV (80-100) fL MCH (25-34) pg MCHC (32-36) g/dL RDW Std Deviation (36.4-46.3) fL RDW Coeff of Adolfo (11.5-14.5) % Plt Count (130-400) K/uL MPV (7.4-10.4) fL Immature Gran % (Auto) % Neut % (Auto) % Lymph % (Auto) % Cassia % (Auto) % Eos % (Auto) % Baso % (Auto) % Immature Gran # (Auto) (0.00-0.02) K/uL Neut # (Auto) (1.4-6.5) K/uL Lymph # (Auto) (1.2-3.4) K/uL Cassia # (Auto) (0.11-0.59) K/uL Eos # (Auto) (0-0.5) K/uL Baso # (Auto) (0-0.2) K/uL PT (9.0-12.0) Seconds INR (0.9-1.1) APTT (21.0-31.0) Seconds PTT Ratio D-Dimer (0-500) ug/L FEU Sodium 134 L (136-145) mmol/L Potassium 3.9 (3.5-5.1) mmol/L Chloride 98 (98-107) mmol/L Carbon Dioxide 28 (21-32) mmol/L Anion Gap 8.0 (3-11) BUN 42 H (7-18) mg/dl Creatinine 1.80 H (0.6-1.2) mg/dl Est Cr Clr Drug Dosing 48.9 ml/min Est GFR ( Amer) 34.1 Est GFR (Non-Af Amer) 29.4 BUN/Creatinine Ratio 23.3 H (10-20) Glucose 201 H (70-99) mg/dl POC Glucose 157 H 231 H (70-99) Calcium 8.9 (8.5-10.1) mg/dl Magnesium 1.8 (1.8-2.4) mg/dl Total Bilirubin (0.2-1) mg/dl AST (15-37) U/L ALT (12-78) U/L Alkaline Phosphatase (45-117) U/L Troponin I < 0.015 (0-0.045) ng/ml NT-Pro-B Natriuret Pep (0-900) pg/ml Total Protein (6.4-8.2) gm/dl Albumin (3.4-5.0) gm/dl Globulin (2.5-4.0) gm/dl Albumin/Globulin Ratio (0.9-2) Beta-Hydroxybutyric Acd (0.2-2.81) mg/dl TSH 5.780 H (0.300-4.500) uIu/ml Urine Color Urine Appearance (Clear) Urine pH (4.5-7.5) Ur Specific [place] (1.000-1.030) Urine Protein (Negative) Urine Glucose (UA) (Negative) Urine Ketones (Negative) Urine Blood (Negative) Urine Nitrite (Negative) Urine Bilirubin (Negative) Urine Urobilinogen (Negative) Ur Leukocyte Esterase (Negative) Urine WBC (Auto) (0-5) /hpf Urine RBC (Auto) (0-4) /hpf U Hyaline Cast (Auto) (0-5) /lpf U Epithel Cells (Auto) (0-5) /lpf Urine Bacteria (Auto) (Negative) Imaging Data Radiologist's Impression: Radiology results as stated below per my review and the radiologist's interpretation: XR chest 1V portable CLINICAL HISTORY: Dyspnea COMPARISON STUDY: 06/09/2018 FINDINGS: The cardiac and mediastinal contours remain stable. There is elevation of the interstitium consistent with mild pulmonary vascular congestion/fluid overload. There is no lobar and solid lesion. Are no significant pleural effusions.[ IMPRESSION: Radiographic evidence of mild congestive failure/fluid overload. No evidence of focal pulmonary consolidation. Electronically signed by: Austin Claire M.D. 12/08/2018 5:14 PM ECG Data Attestation: I personally reviewed and interpreted this ECG as follows: Indication: SOB/dyspnea Rate (beats per minute): 96 Rhythm: normal sinus Findings: no PAC, no PVC, no ST depression, no ST elevation and no ectopy Blood Pressure Blood Pressure Findings: Normal blood pressure MDM Narrative The patient is a 63-year-old female who presented to the emergency department for an evaluation of shortness of breath. The patient is a history of CHF. Her history and physical exam appear to be consistent with CHF. The patient was treated with magnesium replacement as well as Lasix in the emergency department. She was placed on submental oxygen. I discussed her case with the on-call [facility] hospitalist group. They have agreed to evaluate the patient in the emergency department for further management and disposition. Impression & Plan CHF (congestive heart failure), Hypomagnesemia, Hypoxia Discharge Plan Visit Data *Final* Discharge Date/Time: 12/08/18 19:39 Chief Complaint: Shortness of Breath/Dyspnea Stated Complaint: SOB ED Provider: Bright Rodriguez Discharge Problem: CHF (congestive heart failure), Hypomagnesemia, Hypoxia Patient Disposition: Admitted As Inpatient Discharge Instructions Interventions: ED Discharge Assessment Last Done: 12/08/18 19:39 Discharge Problem: CHF (congestive heart failure) Qualifiers: Heart failure type: unspecified Heart failure chronicity: acute on chronic Santy lified Code(s): I50.9 - Heart failure, unspecified The scribe's documentation has been prepared under my direction and personally reviewed by me in its entirety. I confirm that the note above accurately reflects all work, treatment, procedures, and medical decision making performed by me.
--- NOTE | 2018-12-08 17:15 | XRay Report ---
XR chest 1V portable CLINICAL HISTORY: Dyspnea COMPARISON STUDY: 06/09/2018 FINDINGS: The cardiac and mediastinal contours remain stable. There is elevation of the interstitium consistent with mild pulmonary vascular congestion/fluid overload. There is no lobar and solid lesion . Are no significant pleural effusions.[ IMPRESSION: Radiographic evidence of mild congestive failure/fluid overload. No evidence of focal pul monary consolidation. Electronically signed by: Austin Claire M.D. 12/08/2018 5:14 PM
[2018-12-08 17:24] LABS: Basophils # (auto) 0.05 K/uL (0-0.2); Basophils % (auto) 0.5 %; Eosinophils # (auto) 0.33 K/uL (0-0.5); Eosinophils % (auto) 3.6 %; Hematocrit (blood only) 40.1 % (37-47); Hemoglobin 12.7 g/dL (12.0-16.0); Immature Granulocytes # (auto) 0.08 K/uL (0.00-0.02); Immature Granulocytes % (auto) 0.9 %; Lymphocytes # (auto) 2.02 K/uL (1.2-3.4); Mean Corpuscular Hgb Conc 31.7 g/dL (32-36); Mean Corpuscular Volume 92.4 fL (80-100); Mean Platelet Volume 10.1 fL (7.4-10.4); Monocytes # (auto) 0.51 K/uL (0.11-0.59); Monocytes % (auto) 5.6 %; Neutrophils # (auto) 6.19 K/uL (1.4-6.5); Neutrophils % (auto) 67.4 %; Platelet Count 273 K/uL (130-400); RDW Coefficient of Variation 15.2 % (11.5-14.5); RDW Standard Deviation 51.9 fL (36.4-46.3); Red Blood Count 4.34 M/uL (4.2-5.4); White Blood Count 9.18 K/uL (4.8-10.8)
[2018-12-08 17:44] LABS: Alanine Aminotransferase 33 U/L (12-78); Albumin Level 3.2 gm/dl (3.4-5.0); Aspartate Aminotransferase 33 U/L (15-37); BUN Creatinine Ratio 20.9 (10-20); Blood Urea Nitrogen 41 mg/dl (7-18); Calcium 8.5 mg/dl (8.5-10.1); Carbon Dioxide 26 mmol/L (21-32); Chloride 101 mmol/L (98-107); Creatinine Clr Calc Pharmacy 45.2 ml/min; D Dimer 490 ug/L FEU (0-500); Est GFR (Non-African American) 26.7; Glucose 314 mg/dl (70-99); Magnesium 1.4 mg/dl (1.8-2.4); Partial Thromboplastin Ratio 0.9; Partial Thromboplastin Time 24.5 Seconds (21.0-31.0); Potassium 4.1 mmol/L (3.5-5.1); Prothrombin Time 10.6 Seconds (9.0-12.0); Sodium 136 mmol/L (136-145)
[2018-12-08 17:47] LABS: Albumin Globulin Ratio 0.7 (0.9-2); Alkaline Phosphatase 102 U/L (45-117); Bilirubin,Total 0.3 mg/dl (0.2-1); Globulin 4.7 gm/dl (2.5-4.0); Total Protein 7.9 gm/dl (6.4-8.2)
[2018-12-08] MEDS ORDERED: FUROSEMIDE 40 MG in SYRINGE 0 ML IV ONE ×2 (17:52→20:30)
[2018-12-08] MEDS ORDERED: MAGNESIUM SULFATE / D5W 1 GM/100 ML BAG IV ONE ×2 (17:52→20:45)
[2018-12-08 17:54] LABS: Beta-Hydroxybutyrate 1.18 mg/dl (0.2-2.81); NT Pro B Type Natriuretic Pept 104 pg/ml (0-900); Troponin I < 0.015 ng/ml (0-0.045)
[2018-12-08 18:27] LABS: Appearance Urine Clear (Clear); Bacteria Urine Automated Negative (Negative); Bilirubin Urine Negative (Negative); Blood Urine Negative (Negative); Cast Urine Automated 0 /lpf (0-5); Color Urine Yellow; Glucose Urine UA Negative (Negative); Ketones Urine Negative (Negative); Leukocyte Esterase Urine 1+ (Negative); Nitrite Urine Negative (Negative); Protein Urine Negative (Negative); RBC Urine Automated 0-4 /hpf (0-4); Specific Gravity Urine 1.017 (1.000-1.030); Urobilinogen Urine Negative (Negative)
[2018-12-08] MEDS ORDERED: DEXTROSE 50% 50 ML SYRINGE IV PRN (19:16)
[2018-12-08] MEDS ORDERED: GLUCAGON FOR INJ 1 MG VIAL SQ PRN (19:16)
[2018-12-08] MEDS ORDERED: CARBOHYDRATES FOR HYPOGLYCEMIA PO PRN (19:16)
[2018-12-08] MEDS ORDERED: GLUCOSE 40% GEL 15 GM TUBE PO PRN (19:16)
[2018-12-08] MEDS ORDERED: GLUCOSE 10 TABS/TUBE PO PRN (19:16)
--- NOTE | 2018-12-08 19:37 | History & Physical Report ---
Date of Service December 08, 2018 Assessment & Plan (1) Acute on chronic diastolic heart failure: Pt presented with increased lower extremity edema and shortness of breath with exertion, orthopnea x 4-5 days. At least 5 pound weight gain. Pt tried increasing her lasix from 80 mg daily to BID 3 days ago. In ER patient afebrile, pulse 105 temperature 93, respirations 32,015, BP 114/77, 90% on room air down to 88% up to 93% on 3 L NC. No leukocytosis, D- dimer: 490, negative troponin. CXR: mild congestive failure/fluid overload. No evidence of focal pulmonary consolidation. -In ER was given lasix 40mg IV -admit tele -monitor I&O's, daily weights -low sodium diet -echo -will give additional 40mg lasix IV tonight, plan on 80mg lasix in am -cardiology consult, appreciate further diuretic recommendations -monitor bmp (2) Hypomagnesemia: magnesium: 1.4 -Given 1Gm magensium in ER -Replace and monitor (3) Type 2 diabetes, uncontrolled, with neuropathy: A1c: 9.5 on 09/27/18 -hold home meds -basal bolus insulin (4) CKD (chronic kidney disease), stage III: Cr: 1.9. Baseline 1.5-1.7 -monitor renal functions -may need to consult nephrology if worsening renal functions with assistance with diuretics (5) HTN (hypertension): -continue metoprolol -hold am lisinopril and reassess BP's, BMP (6) Hypothyroidism: TSH in am -continue levothyroxine (7) Depression with anxiety: -continue cymbalta, klonopin (8) ELISSA on CPAP: -continue CPAP with 4L oxygen HS (9) GERD (gastroesophageal reflux disease): -continue PPI (10) RLS (restless legs syndrome): -continue ropinirole DVT Prophylaxis -SCDs. Pt with hx heparin induced thrombocytopenia in past Full Code Follows with Dr Kevin Whiteside for routine care Pt was seen with Dr Crooks. See addendum History of Present Illness Chief Complaint: SOB, edema Primary Care Provider: Kevin Whiteside, Pt is 63 y/o F with PMH diastolic CHF, HTN, dyslipidemia, uncontrolled DM II, GERD, ELISSA on CPAP with 4L 02, obesity, acquired hypothyroidism, h/o PE, s/p IVC filter, depression, CKD 3, RLS, fibromyalgia, morbid obesity presented to ER with complaint of increased lower extremity edema and shortness of breath x 4-5 days. Patient states she noticed increased bilateral lower extremity edema, abdominal bloating, orthopnea, shortness of breath with walking. She reports thinks gained at least 5 pounds over the past several days (unsure exact weight gain secondary to scale max weight of 350 pounds). Patient is on Lasix 80 mg daily. She reports 3 days ago increased to twice daily without much relief. Patient denies any food indiscretions, however significant other reports noticed that patient patient was recently eating Spam. Patient with history of hospitalization 05/2018 for CHF. Patient denies chest pain. Reports some discomfort between shoulder blades. Denies fever/chills, diaphoresis, N/V/D/C, BURROWS, dizziness, syncope, vision changes, neck pain, palpitations, cough, sore throat, choking, otalgia, rhinorrhea, abdominal pain, paresthesias, rashes, urinary symptoms. 05/2018 Echo: EF: 65-70%, mild concentric LVH, no significant valvular pathology. Allergies Allergy/AdvReac Type Severity Reaction Status Date / Time tetanus toxoid, adsorbed Allergy Mild PASSED OUT Verified 12/08/18 18:38 AND GOT SICK WHEN A CHILD codeine Allergy Unknown Hallucinati Verified 12/08/18 18:42 ons heparin Allergy Unknown HIT; FLUID Verified 12/08/18 18:38 IN LUNGS morphine Allergy Unknown VIOLENT Verified 12/08/18 18:38 REACTION-"ALMOST " SWELLING HAY FEVER Allergy Unknown UNKNOWN Uncoded 12/08/18 18:38 Home Medications Home Medications Medication Instructions Recorded Confirmed Type clonazepam 0.5 mg PO BID 06/09/18 12/08/18 History gabapentin 300 mg PO TID 06/09/18 12/08/18 History levothyroxine 25 mcg PO DAILY 06/09/18 12/08/18 History levothyroxine 200 mcg PO DAILY 06/09/18 12/08/18 History metoprolol tartrate 50 mg PO BID 06/09/18 12/08/18 History nortriptyline [Pamelor] 50 mg PO HS 06/09/18 12/08/18 History omeprazole 20 mg PO HS 06/09/18 12/08/18 History ropinirole 1 mg PO HS 06/09/18 12/08/18 History liraglutide 1.8 mg SUBCUT DAILY 06/10/18 12/08/18 History cyclobenzaprine 10 mg PO HS PRN 12/08/18 12/08/18 History duloxetine 30 mg PO HS 12/08/18 12/08/18 History ergocalciferol (vitamin D2) 50,000 unit PO WK 12/08/18 12/08/18 History [Vitamin D2] furosemide 80 mg PO DAILY 12/08/18 12/08/18 History insulin aspart U-100 [Novolog 1 sliding scale dose SUBCUT AC 12/08/18 12/08/18 History Flexpen U-100 Insulin] insulin degludec [Tresiba 160 units SUBCUT HS 12/08/18 12/08/18 History FlexTouch U-200] lisinopril 2.5 mg PO DAILY 12/08/18 12/08/18 History magnesium chloride [Mag 64] 64 mg PO BID 12/08/18 12/08/18 History Past Med/Surg History Medical History CKD (chronic kidney disease), stage III (Chronic) ELISSA on CPAP (Chronic) HTN (hypertension) (Chronic) HLD (hyperlipidemia) (Chronic) Morbid obesity (Chronic) 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) Depression with anxiety (Chronic) Hypothyroidism (Chronic) History of pulmonary embolism (Chronic) s/p zoraida filter GERD (gastroesophageal reflux disease) (Chronic) RLS (restless legs syndrome) (Chronic) History of DVT (deep vein thrombosis) (Resolved) Presence of IVC filter (Chronic) Fibromyalgia (Chronic) Diabetes (Chronic) Sepsis (Resolved) Surgical History History of cholecystectomy (Resolved) History of total right knee replacement (Resolved) History of tracheostomy (Resolved) 2010, secondary to acute resp failure secondary to pneumonia, transferred to [facility] History of thyroidectomy, total (Resolved) History of colon resection (Resolved) secondary to R colon perforation, resected treated with colostomy and eventual reversal in 2008, Dr. Lerma Family History Father , age 74 Lung cancer Mother , age 45 Cirrhosis Social History Preferred Language: [place] Communication Ability: Effective Safety Aide Required: No Beliefs That Will Affect Care: None Current Living Situation: Alone Other Information That Helps Us Care for You: No Feels Safe at Home: Yes Safety Concerns: Feels Safe At This Time Smoking Status: Never smoker Hx Alcohol Use: No Hx Substance Use: No Review of Systems All systems reviewed & are unremarkable except as noted in HPI & below Physical Exam Vital Signs (Past 24 Hours): Last Vital Signs Temp 36.7 C 12/08/18 16:36 Pulse 90 12/08/18 19:22 Resp 24 12/08/18 19:22 BP 120/53 L 12/08/18 19:22 Pulse Ox 92 12/08/18 19:22 Physical Exam: General: no distress, WDWN Head: normocephalic, atraumatic Eyes: PERRL, EOM's intact, conjunctiva non-injected, anicteric ENT: normal inspection external ears, nose, mucous membranes moist Neck: supple, trachea midline, non-tender Lungs: clear, no respiratory distress, no wheezing/rhonchi/rales CV: RRR, bilateral leg edema Abd: normal BS, soft, protuberant, non-tender Ext: no cyanosis, no calf tenderness Neuro: A&O x 3, no focal deficits noted, normal affect Skin: warm, dry Results & Data Laboratory Results Short CBC 12/08/18 Range/Units 17:00 WBC 9.18 (4.8-10.8) K/uL Hgb 12.7 (12.0-16.0) g/dL Hct 40.1 (37-47) % Plt Count 273 (130-400) K/uL BMP 12/08/18 17:00 Sodium 136 Potassium 4.1 Chloride 101 Carbon Dioxide 26 BUN 41 H Creatinine 1.95 H Glucose 314 H Calcium 8.5 Cardiac Enzymes 12/08/18 Range/Units 17:00 Troponin I < 0.015 (0-0.045) ng/ml Liver Function 12/08/18 Range/Units 17:00 Total Bilirubin 0.3 (0.2-1) mg/dl AST 33 (15-37) U/L ALT 33 (12-78) U/L Alkaline Phosphatase 102 (45-117) U/L Albumin 3.2 L (3.4-5.0) gm/dl Urine 03/15/19 Range/Units 18:10 Urine Color Yellow Urine Appearance Clear (Clear) Urine pH 5.0 (4.5-7.5) Ur Specific [place] 1.017 (1.000-1.030) Urine Protein Negative (Negative) Urine Glucose (UA) Negative (Negative) Diagnostic Findings CXR: IMPRESSION: Radiographic evidence of mild congestive failure/fluid overload. No evidence of focal pulmonary consolidation. ECG Rate (beats per minute): 96 Rhythm: normal sinus Supervising Physician Co-Signing Physician Notes Attending Addendum. The patient was seen and examined in ER She is a 63 y/o Morbidly Obese F with PMH diastolic CHF, HTN, dyslipidemia, uncontrolled DM II, GERD, ELISSA on CPAP with 4L 02, obesity, acquired hypothyroidism, h/o PE, s/p IVC filter, depression, CKD 3, RLS, fibromyalgia, morbid obesity presented to ER with complaint of increased lower extremity edema and shortness of breath x 4-5 days. Denies any symptoms at rest NO CP,Palpitation,no abdominal pain,nausea and or vomiting On Examination No apparent distress Chest-bibasilar crackles Heart-regular Abdomen-Distended Extremities-1 + Edema bilaterally Labs and Imaging Studies were reviewed Has CHF Agree with Assessment and plan as outlined above by Greer Crooks
[2018-12-08] MEDS ORDERED: CYCLOBENZAPRINE HCL 10 MG TAB PO PRN (19:55)
[2018-12-08] MEDS: ACETAMINOPHEN 325 MG TAB PO PRN (20:41)
[2018-12-08] MEDS: DULOXETINE HCL 30 MG CAP PO SCH (21:22)
[2018-12-08] MEDS: GABAPENTIN 300 MG CAP PO SCH (21:23)
[2018-12-08] MEDS: METOPROLOL TARTRATE 25 MG TAB PO SCH (21:23)
[2018-12-08] MEDS: NORTRIPTYLINE HCL 25 MG CAP PO SCH (21:24)
[2018-12-08] MEDS: PANTOprazole 40 MG TAB PO SCH (21:24)
[2018-12-08] MEDS: ROPINIROLE HCL 1 MG TABLET PO SCH (21:25)
[2018-12-08] MEDS: clonazePAM 0.5 MG TAB PO SCH (21:28)
[2018-12-08] MEDS: INSULIN ASPART 100 UNITS/ML 3 ML PEN SC SCH (21:29)
[2018-12-08] MEDS: INSULIN GLARGINE 100 UNIT/ML VIAL SC SCH (21:30)
[2018-12-09] MEDS: ACETAMINOPHEN 325 MG TAB PO PRN (03:31)
[2018-12-09] MEDS: LEVOTHYROXINE SODIUM 200 MCG TABLET PO SCH (05:20)
[2018-12-09] MEDS: LEVOTHYROXINE SODIUM 25 MCG TABLET PO SCH (05:20)
[2018-12-09 06:14] LABS: Hematocrit (blood only) 41.8 % (37-47); Hemoglobin 13.6 g/dL (12.0-16.0); Mean Corpuscular Hgb Conc 32.5 g/dL (32-36); Mean Corpuscular Volume 92.9 fL (80-100); Mean Platelet Volume 10.2 fL (7.4-10.4); Platelet Count 286 K/uL (130-400); RDW Coefficient of Variation 15.2 % (11.5-14.5); RDW Standard Deviation 51.4 fL (36.4-46.3); White Blood Count 11.25 K/uL (4.8-10.8)
[2018-12-09 06:50] LABS: BUN Creatinine Ratio 23.3 (10-20); Blood Urea Nitrogen 42 mg/dl (7-18); Calcium 8.9 mg/dl (8.5-10.1); Carbon Dioxide 28 mmol/L (21-32); Chloride 98 mmol/L (98-107); Creatinine Clr Calc Pharmacy 48.9 ml/min; Est GFR (African American) 34.1; Est GFR (Non-African American) 29.4; Glucose 201 mg/dl (70-99); Magnesium 1.8 mg/dl (1.8-2.4); Potassium 3.9 mmol/L (3.5-5.1); Sodium 134 mmol/L (136-145)
[2018-12-09 07:00] LABS: Troponin I < 0.015 ng/ml (0-0.045)
[2018-12-09] MEDS: clonazePAM 0.5 MG TAB PO SCH ×2 (07:28→21:48)
[2018-12-09] MEDS ORDERED: FUROSEMIDE 80 MG in SYRINGE 0 ML IV ONE (09:00)
[2018-12-09] MEDS: GABAPENTIN 300 MG CAP PO SCH ×3 (09:01→21:51)
[2018-12-09] MEDS: METOPROLOL TARTRATE 25 MG TAB PO SCH ×2 (09:01→21:52)
[2018-12-09] MEDS: INSULIN GLARGINE 100 UNIT/ML VIAL SC SCH ×2 (09:04→21:49)
[2018-12-09] MEDS: INSULIN ASPART 100 UNITS/ML 3 ML PEN SC SCH ×4 (09:07→21:53)
--- NOTE | 2018-12-09 09:16 | Hospitalist Progress Note ---
Date of Service December 09, 2018 Assessment & Plan (1) Acute on chronic diastolic heart failure: Pt presented with increased lower extremity edema and shortness of breath with exertion, orthopnea x 4-5 days. At least 5 pound weight gain. Pt tried increasing her lasix from 80 mg daily to BID 3 days ago. In ER patient afebrile, pulse 105 temperature 93, respirations 32,015, BP 114/77, 90% on room air down to 88% up to 93% on 3 L NC. No leukocytosis, D- dimer: 490, negative troponin. CXR: mild congestive failure/fluid overload. No evidence of focal pulmonary consolidation. -In ER was given lasix 40mg IV -1.7 L fluid balance overnight Continue Lasix 40 mg IV Aldactone 12.5 mg daily started by cardiology service, appreciate recommendations Continue to monitor closely (2) Hypomagnesemia: Resolved (3) Type 2 diabetes, uncontrolled, with neuropathy: A1c: 9.5 on 09/27/18 -hold home meds Continue insulin glargine at this point (4) CKD (chronic kidney disease), stage III: Cr: 1.9. Baseline 1.5-1.7 -monitor renal functions Creatinine at baseline (5) HTN (hypertension): -continue metoprolol Resume lisinopril (6) Hypothyroidism: TSH 5.7 Check free T4 -continue levothyroxine (7) Depression with anxiety: -continue cymbalta, klonopin (8) ELISSA on CPAP: -continue CPAP with 4L oxygen HS (9) GERD (gastroesophageal reflux disease): -continue PPI (10) RLS (restless legs syndrome): -continue ropinirole DVT Prophylaxis Start Lovenox, subcutaneous daily Full Code Follows with Dr Kevin Whiteside for routine care Subjective Follow-up for CHF exacerbation Seen sitting up in bed, not in distress, States she feels slightly better compared to yesterday Still requires nasal cannula 2 L, as is and on minimal exertion Denies chest pain, dizziness, active shortness of breath exam Denies other symptoms Physical Exam Vital Signs (Past 24 Hours): Last Vital Signs Temp 36.3 C L 12/09/18 07:29 Pulse 79 12/09/18 07:29 Resp 22 12/09/18 07:29 BP 142/81 H 12/09/18 07:29 Pulse Ox 96 12/09/18 07:29 Physical Exam: General- oriented x 3, not in distress, speaks in sentences with no effort or accessory muscle use Eyes- anicteric Neck- no JVD Lungs-positive rales at the bases, no wheezing, good air entry bilaterally Heart- normal rate, regular rhythm; no murmurs Abdomen- normal bowel sounds, nondistended, soft, nontender Extremities-positive grade 1-2 lower extremity edema bilaterally, no calf tenderness Neuro- alert, oriented x 3; no gross focal neurologic deficits Skin- warm & dry Results & Data Laboratory Results Laboratory Results - last 24 hr 12/08/18 12/08/18 12/08/18 17:00 17:00 17:00 WBC 9.18 RBC 4.34 Hgb 12.7 Hct 40.1 MCV 92.4 MCH 29.3 MCHC 31.7 L RDW Std Deviation 51.9 H RDW Coeff of Adolfo 15.2 H Plt Count 273 MPV 10.1 Immature Gran % (Auto) 0.9 Neut % (Auto) 67.4 Lymph % (Auto) 22.0 [place] % (Auto) 5.6 Eos % (Auto) 3.6 Baso % (Auto) 0.5 Immature Gran # (Auto) 0.08 H Neut # (Auto) 6.19 Lymph # (Auto) 2.02 [place] # (Auto) 0.51 Eos # (Auto) 0.33 Baso # (Auto) 0.05 PT 10.6 INR 1.0 APTT 24.5 PTT Ratio 0.9 D-Dimer 490 Sodium 136 Potassium 4.1 Chloride 101 Carbon Dioxide 26 Anion Gap 9.0 BUN 41 H Creatinine 1.95 H Est Cr Clr Drug Dosing 45.2 Est GFR ( Amer) 31.0 Est GFR (Non-Af Amer) 26.7 BUN/Creatinine Ratio 20.9 H Glucose 314 H POC Glucose Calcium 8.5 Magnesium 1.4 L Total Bilirubin 0.3 AST 33 ALT 33 Alkaline Phosphatase 102 Troponin I < 0.015 NT-Pro-B Natriuret Pep 104 Total Protein 7.9 Albumin 3.2 L Globulin 4.7 H Albumin/Globulin Ratio 0.7 L Beta-Hydroxybutyric Acd 1.18 TSH Urine Color Urine Appearance Urine pH Ur Specific [place] Urine Protein Urine Glucose (UA) Urine Ketones Urine Blood Urine Nitrite Urine Bilirubin Urine Urobilinogen Ur Leukocyte Esterase Urine WBC (Auto) Urine RBC (Auto) U Hyaline Cast (Auto) U Epithel Cells (Auto) Urine Bacteria (Auto) 12/08/18 12/08/18 12/08/18 17:00 18:10 20:17 WBC RBC Hgb Hct MCV MCH MCHC RDW Std Deviation RDW Coeff of Adolfo Plt Count MPV Immature Gran % (Auto) Neut % (Auto) Lymph % (Auto) [place] % (Auto) Eos % (Auto) Baso % (Auto) Immature Gran # (Auto) Neut # (Auto) Lymph # (Auto) [place] # (Auto) Eos # (Auto) Baso # (Auto) PT INR APTT PTT Ratio D-Dimer Sodium Potassium Chloride Carbon Dioxide Anion Gap BUN Creatinine Est Cr Clr Drug Dosing Est GFR ( Amer) Est GFR (Non-Af Amer) BUN/Creatinine Ratio Glucose POC Glucose 264 H Calcium Magnesium Total Bilirubin AST ALT Alkaline Phosphatase Troponin I NT-Pro-B Natriuret Pep Cancelled Total Protein Albumin Globulin Albumin/Globulin Ratio Beta-Hydroxybutyric Acd TSH Urine Color Yellow Urine Appearance Clear Urine pH 5.0 Ur Specific [place] 1.017 Urine Protein Negative Urine Glucose (UA) Negative Urine Ketones Negative Urine Blood Negative Urine Nitrite Negative Urine Bilirubin Negative Urine Urobilinogen Negative Ur Leukocyte Esterase 1+ H Urine WBC (Auto) 5-10 H Urine RBC (Auto) 0-4 U Hyaline Cast (Auto) 0 U Epithel Cells (Auto) 10-20 H Urine Bacteria (Auto) Negative 12/08/18 12/09/18 12/09/18 23:06 05:18 05:30 WBC 11.25 H RBC 4.50 Hgb 13.6 Hct 41.8 MCV 92.9 MCH 30.2 MCHC 32.5 RDW Std Deviation 51.4 H RDW Coeff of Adolfo 15.2 H Plt Count 286 MPV 10.2 Immature Gran % (Auto) Neut % (Auto) Lymph % (Auto) [place] % (Auto) Eos % (Auto) Baso % (Auto) Immature Gran # (Auto) Neut # (Auto) Lymph # (Auto) [place] # (Auto) Eos # (Auto) Baso # (Auto) PT INR APTT PTT Ratio D-Dimer Sodium Potassium Chloride Carbon Dioxide Anion Gap BUN Creatinine Est Cr Clr Drug Dosing Est GFR ( Amer) Est GFR (Non-Af Amer) BUN/Creatinine Ratio Glucose POC Glucose 187 H Calcium Magnesium Total Bilirubin AST ALT Alkaline Phosphatase Troponin I < 0.015 NT-Pro-B Natriuret Pep Total Protein Albumin Globulin Albumin/Globulin Ratio Beta-Hydroxybutyric Acd TSH Urine Color Urine Appearance Urine pH Ur Specific [place] Urine Protein Urine Glucose (UA) Urine Ketones Urine Blood Urine Nitrite Urine Bilirubin Urine Urobilinogen Ur Leukocyte Esterase Urine WBC (Auto) Urine RBC (Auto) U Hyaline Cast (Auto) U Epithel Cells (Auto) Urine Bacteria (Auto) 12/09/18 12/09/18 12/09/18 05:30 07:36 11:41 WBC RBC Hgb Hct MCV MCH MCHC RDW Std Deviation RDW Coeff of Adolfo Plt Count MPV Immature Gran % (Auto) Neut % (Auto) Lymph % (Auto) [place] % (Auto) Eos % (Auto) Baso % (Auto) Immature Gran # (Auto) Neut # (Auto) Lymph # (Auto) [place] # (Auto) Eos # (Auto) Baso # (Auto) PT INR APTT PTT Ratio D-Dimer Sodium 134 L Potassium 3.9 Chloride 98 Carbon Dioxide 28 Anion Gap 8.0 BUN 42 H Creatinine 1.80 H Est Cr Clr Drug Dosing 48.9 Est GFR ( Amer) 34.1 Est GFR (Non-Af Amer) 29.4 BUN/Creatinine Ratio 23.3 H Glucose 201 H POC Glucose 157 H 231 H Calcium 8.9 Magnesium 1.8 Total Bilirubin AST ALT Alkaline Phosphatase Troponin I < 0.015 NT-Pro-B Natriuret Pep Total Protein Albumin Globulin Albumin/Globulin Ratio Beta-Hydroxybutyric Acd TSH 5.780 H Urine Color Urine Appearance Urine pH Ur Specific [place] Urine Protein Urine Glucose (UA) Urine Ketones Urine Blood Urine Nitrite Urine Bilirubin Urine Urobilinogen Ur Leukocyte Esterase Urine WBC (Auto) Urine RBC (Auto) U Hyaline Cast (Auto) U Epithel Cells (Auto) Urine Bacteria (Auto)
[2018-12-09] MEDS: TRAMADOL HCL 50 MG TABLET PO PRN ×3 (10:53→23:37)
[2018-12-09] MEDS: FUROSEMIDE 40 MG in SYRINGE 0 ML IV SCH ×2 (10:54→16:37)
[2018-12-09] MEDS: SPIRONOLACTONE 25 MG TAB PO SCH (12:23)
--- NOTE | 2018-12-09 14:07 | Consultation Report ---
DATE OF CONSULTATION: 12/09/2018 INPATIENT CARDIOLOGY CONSULTATION CONSULTATION REQUESTED BY: Greer Perry PA-C. REASON FOR CONSULTATION: Acute diastolic dysfunction. HISTORY OF PRESENT ILLNESS: Ms. Camp is a very pleasant 63-year-old woman who follows very closely with Marjorie Powell of our cardiology practice for history of diastolic dysfunction with acute exacerbations. She presented to [facility] Emergency Department on 12/08/2018 with a complaint of 3 days' worth of increasing shortness of breath, lower extremity edema, and abdominal distention. The patient states that approximately 3 days ago, she started feeling herself build up with fluid. She admits that she was stubborn and did not want to call the office to be evaluated, so she took it upon herself to increase her Lasix to 80 mg b.i.d. which has helped in the past. Unfortunately, she continued to gain fluid and worsening dyspnea and she gained at least 5 pounds. She then presented to [facility], where she was found to be volume overloaded. She was given IV Lasix in the ER with initial brisk diuresis. Otherwise, she was admitted to telemetry and states that she is starting to feel better, but still feels volume overloaded. Her breathing is improved, though her lower extremity edema has improved; however, abdominal distention does not appear to have changed. Otherwise, she denies any recent changes in her diet and denies experiencing any chest pain, palpitations, lightheadedness, dizziness, or syncope. PAST SURGICAL HISTORY: 1. Large intestine perforation with colostomy and subsequent reversal. 2. Hernia repair. 3. Arthroscopic knee surgery. 4. IVC filter placement. 5. Gastrotomy tube. 6. Cholecystectomy. 7. Tracheostomy and thyroidectomy. MEDICAL ILLNESSES: 1. Diastolic dysfunction with normal LV systolic function. 2. Morbid obesity. 3. Fibromyalgia. 4. Obstructive sleep apnea, nocturnal CPAP with supplemental oxygenation. 5. Hypertension. 6. Diabetes. 7. History of pulmonary embolism, status post IVC filter placement. 8. Heparin-induced thrombocytopenia. 9. Hypertensive heart disease. 10. GERD. FAMILY HISTORY: Noncontributory. SOCIAL HISTORY: The patient is a former smoker. Denies any alcohol or recreational drug use. REVIEW OF SYSTEMS: As per HPI, all other review of systems reviewed and negative at this time. ALLERGIES: 1. JARDIANCE. 2. HEPARIN. 3. MORPHINE. 4. TETANUS TOXOID. MEDICATIONS AN OUTPATIENT: 1. Lisinopril 2.5 mg daily. 2. Lasix 40 mg daily, increasing to 80 mg as needed for volume overload. 3. Metoprolol tartrate 50 mg b.i.d. 4. Victoza. 5. Levoxyl. 6. Insulin as directed. 7. Neurontin 600 mg 3 times a day. 8. Cymbalta. 9. Requip. 10. Prilosec. PHYSICAL EXAMINATION: VITALS: Temperature 36.6, pulse 86, respiratory rate 12, blood pressure 115/51, saturating 94% on 2 liters nasal cannula. GENERAL: Awake, alert, oriented x3 in no acute distress. HEENT: Normocephalic, atraumatic. Pupils equal, round, reactive to light and accommodation. Extraocular muscles intact. Anicteric sclerae. Moist mucous membranes. Poor dentition. NECK: No JVD, no bruit. CARDIOVASCULAR: Regular, but distant. Unable to appreciate murmurs, rubs or gallops. PULMONARY: Scant bibasilar crackles, otherwise clear. No rhonchi or wheezing. ABDOMEN: Obese, relatively soft. No rebound, guarding, tenderness. No organomegaly appreciated. EXTREMITIES: +1 bilateral lower extremity pitting edema. No clubbing or cyanosis. +1 pedal pulses bilaterally. SKIN: Warm and dry. TEST RESULTS, LABORATORY STUDIES OF SIGNIFICANCE: Sodium 134, potassium 3.9, BUN 42, magnesium of 1.8. Troponin negative x3. TSH of 5.78. Chest x-ray performed in the Emergency Department was read as radiographic evidence of mild congestive failure/fluid overload. No evidence of focal pulmonary consolidation. IMPRESSION: 1. Acute decompensated diastolic heart failure. 2. Hypertension. 3. Morbid obesity. 4. Diabetes. 5. Obstructive sleep apnea, nocturnal CPAP. RECOMMENDATIONS: It was my pleasure to see Mrs. Camp in consultation today. From a cardiac standpoint, she is already responding well to IV Lasix 40 mg b.i.d. and that should be continued. On top of that, I will start her on spironolactone 12.5 mg daily, not only for the diuretic benefits, but also for the aldosterone antagonism given her significant diastolic dysfunction. She will be continued on her beta rey. Strict I's and O's should be maintained. Now, I will continue to follow her volume status clinically.
[2018-12-09] MEDS: LISINOPRIL 2.5 MG TAB PO SCH (18:42)
[2018-12-09] MEDS: DULOXETINE HCL 30 MG CAP PO SCH (21:49)
[2018-12-09] MEDS: ROPINIROLE HCL 1 MG TABLET PO SCH (21:51)
[2018-12-09] MEDS: PANTOprazole 40 MG TAB PO SCH (21:52)
[2018-12-09] MEDS: NORTRIPTYLINE HCL 25 MG CAP PO SCH (21:52)
[2018-12-10] MEDS: PROCHLORPERAZINE 5 MG in SYRINGE 4 ML IV PRN ×2 (03:06→10:40)
[2018-12-10] MEDS: LEVOTHYROXINE SODIUM 200 MCG TABLET PO SCH (06:04)
[2018-12-10] MEDS: LEVOTHYROXINE SODIUM 25 MCG TABLET PO SCH (06:04)
[2018-12-10] MEDS: INSULIN ASPART 100 UNITS/ML 3 ML PEN SC SCH ×4 (08:36→20:44)
[2018-12-10] MEDS: INSULIN GLARGINE 100 UNIT/ML VIAL SC SCH ×2 (08:38→20:46)
[2018-12-10] MEDS: GABAPENTIN 300 MG CAP PO SCH ×3 (08:42→20:40)
[2018-12-10] MEDS: METOPROLOL TARTRATE 25 MG TAB PO SCH ×2 (08:42→20:40)
--- NOTE | 2018-12-10 08:57 | Hospitalist Progress Note ---
Date of Service December 10, 2018 delayed entry date of service as noted above Assessment & Plan (1) Acute on chronic diastolic heart failure: Pt presented with increased lower extremity edema and shortness of breath with exertion, orthopnea x 4-5 days. At least 5 pound weight gain. Pt tried in creasing her lasix from 80 mg daily to BID 3 days ago. In ER patient afebrile, pulse 105 temperature 93, respirations 32,015, BP 114/77, 90% on room air down to 88% up to 93% on 3 L NC. No leukocytosis, D- dimer: 490, negative troponin. CXR: mild congestive failure/fluid overload. No evidence of focal pulmonary consolidation. -In ER was given lasix 40mg IV -continues to diurese Continue Lasix 40 mg IV BID and Aldactone monitor (2) Hypomagnesemia: Resolved (3) Type 2 diabetes, uncontrolled, with neuropathy: A1c: 9.5 on 09/27/18 -hold home meds Continue insulin glargine at this point (4) CKD (chronic kidney disease), stage III: -monitor renal functions (5) HTN (hypertension): -continue metoprolol - BP on the lower side hold Lisinopril (6) Hypothyroidism: TSH 5.7 Check free T4 -continue levothyroxine (7) Depression with anxiety: -continue cymbalta klonopin (8) ELISSA on CPAP: -continue CPAP with 4L oxygen HS (9) GERD (gastroesophageal reflux disease): -continue PPI (10) RLS (restless legs syndrome): -continue ropinirole DVT Prophylaxis Lovenox, subcutaneous daily Full Code Follows with Dr Kevin Whiteside for routine care Subjective ff up for acute CHF seen resting in bed, sitting up comfortable still on 3 L NC has some mild dizziness, nausea no dyspnea, chest pain no other symptoms Physical Exam Vital Signs (Past 24 Hours): Last Vital Signs Temp 36.4 C L 12/10/18 07:31 Pulse 86 12/10/18 07:31 Resp 20 12/10/18 07:31 BP 95/58 L 12/10/18 07:31 Pulse Ox 94 12/10/18 07:31 Physical Exam: General- oriented x 3, not in distress, speaks in sentences with no effort or accessory muscle use Eyes- anicteric Neck- no JVD Lungs- mild bibasilar rales no wheezing Heart- normal rate, regular rhythm; no murmurs Abdomen- normal bowel sounds, nondistended, soft, nontender Extremities- grade 1-2 lower leg edema, no calf tenderness Neuro- alert, oriented x 3; no gross focal neurologic deficits Skin- warm & dry Results & Data Laboratory Results Laboratory Results - last 24 hr 12/11/18 12/11/18 12/11/18 06:22 07:27 11:36 Sodium 131 L Potassium 4.0 Chloride 94 L Carbon Dioxide 29 Anion Gap 8.0 BUN 60 H Creatinine 2.39 H Est Cr Clr Drug Dosing 36.8 Est GFR ( Amer) 24.2 Est GFR (Non-Af Amer) 20.9 BUN/Creatinine Ratio 25.3 H Glucose 154 H POC Glucose 157 H 188 H Calcium 8.3 L 12/11/18 12/11/18 16:13 20:15 Sodium Potassium Chloride Carbon Dioxide Anion Gap BUN Creatinine Est Cr Clr Drug Dosing Est GFR ( Amer) Est GFR (Non-Af Amer) BUN/Creatinine Ratio Glucose POC Glucose 166 H 217 H Calcium
[2018-12-10 09:28] LABS: BUN Creatinine Ratio 24.3 (10-20); Calcium 8.8 mg/dl (8.5-10.1); Creatinine Clr Calc Pharmacy 40.4 ml/min; Est GFR (African American) 27.2; Est GFR (Non-African American) 23.5; Potassium 4.4 mmol/L (3.5-5.1)
[2018-12-10] MEDS: SPIRONOLACTONE 25 MG TAB PO SCH (09:53)
[2018-12-10] MEDS: FUROSEMIDE 40 MG in SYRINGE 0 ML IV SCH ×2 (09:53→18:22)
[2018-12-10] MEDS: clonazePAM 0.5 MG TAB PO SCH ×2 (10:43→20:43)
--- NOTE | 2018-12-10 12:55 | Cardiology Progress Note ---
Date of Service December 10, 2018 Assessment & Plan (1) Acute on chronic diastolic heart failure: responding well to diuresis AM lasix held, would give once BP improved cont bid lasix cont spironolactone, metoprolol and lisinopril strict I/O's (2) CKD (chronic kidney disease), stage III: stable (3) ELISSA on CPAP: asked patient to have someone bring in her home machine no doubt that recovery process could be slowed without nocturnal cpap Subjective Pt seen and examined, states very tired, could not tolerate cpap mask overnight. Some nausea this AM and brief hypotension, AM lasix held. States breathing and edema have improved. tele reviewed: sinus rhythm without arrhythmia or significant ectopy. Physical Exam Vital Signs (Past 24 Hours): Last Vital Signs Temp 36.3 C L 12/10/18 11:41 Pulse 82 12/10/18 11:41 Resp 18 12/10/18 11:41 BP 130/69 12/10/18 11:41 Pulse Ox 92 12/10/18 11:41 Physical Exam: General: Awake, alert and oriented x 3. No acute distress. HEENT: Normocephalic, atraumatic. Pupils equal, round and reactive to light and accommodation. Extraocular muscles are intact. Anicteric sclera. Moist mucous membranes. Neck: No JVD. No bruit. Cardiovascular: Regular. Positive S-4. Normal S-1 and S-2. No S-3. No murmurs or rubs. Pulmonary: Clear to auscultation B/L. No rales, rhonchi or wheezing Abdomen: Bowel sounds x 4, soft. No rebound, guarding or tenderness. No organomegaly. Extremities: No clubbing, cyanosis or edema. +2 pedal pulses bilaterally. Skin: Warm and dry.
[2018-12-10] MEDS: TRAMADOL HCL 50 MG TABLET PO PRN (20:37)
[2018-12-10] MEDS: NORTRIPTYLINE HCL 25 MG CAP PO SCH (20:40)
[2018-12-10] MEDS: DULOXETINE HCL 30 MG CAP PO SCH (20:41)
[2018-12-10] MEDS: ROPINIROLE HCL 1 MG TABLET PO SCH (20:41)
[2018-12-10] MEDS: PANTOprazole 40 MG TAB PO SCH (20:42)
[2018-12-10] MEDS: ACETAMINOPHEN 325 MG TAB PO PRN (23:35)
[2018-12-11] MEDS: LEVOTHYROXINE SODIUM 25 MCG TABLET PO SCH (05:48)
[2018-12-11] MEDS: LEVOTHYROXINE SODIUM 200 MCG TABLET PO SCH (05:48)
[2018-12-11 06:59] LABS: Est GFR (African American) 24.2
[2018-12-11 07:00] LABS: BUN Creatinine Ratio 25.3 (10-20); Calcium 8.3 mg/dl (8.5-10.1); Creatinine Clr Calc Pharmacy 36.8 ml/min; Est GFR (Non-African American) 20.9
[2018-12-11] MEDS: PROCHLORPERAZINE 5 MG in SYRINGE 4 ML IV PRN (08:13)
[2018-12-11] MEDS: METOPROLOL TARTRATE 25 MG TAB PO SCH ×2 (08:17→20:11)
[2018-12-11] MEDS: GABAPENTIN 300 MG CAP PO SCH ×3 (08:18→20:12)
[2018-12-11] MEDS: SPIRONOLACTONE 25 MG TAB PO SCH (08:18)
[2018-12-11] MEDS: INSULIN ASPART 100 UNITS/ML 3 ML PEN SC SCH ×4 (08:19→20:18)
[2018-12-11] MEDS: INSULIN GLARGINE 100 UNIT/ML VIAL SC SCH ×2 (08:20→20:18)
[2018-12-11] MEDS: clonazePAM 0.5 MG TAB PO SCH ×2 (08:25→20:10)
[2018-12-11] MEDS: FUROSEMIDE 40 MG in SYRINGE 0 ML IV SCH ×2 (10:52→16:29)
[2018-12-11] MEDS: ACETAMINOPHEN 325 MG TAB PO PRN (13:48)
--- NOTE | 2018-12-11 15:17 | Cardiology Progress Note ---
Date of Service December 11, 2018 Assessment & Plan (1) Acute on chronic diastolic heart failure: lasix held due to pump in creat will give PM dose today and follow renal function will ask our nephrology colleagues for their expertise (2) CKD (chronic kidney disease), stage III: downtrending nephrology to evaluate patient (3) ELISSA on CPAP: asked patient to have someone bring in her home machine no doubt that recovery process could be slowed without nocturnal cpap Subjective Pt seen and examined, states that she's feeling discouraged about her renal function. Still sob. Denies cp, palpitations, lightheadedness or dizziness. Tele reviewed: sinus rhythm without arrhythmia or significant ectopy. Review of Systems All systems reviewed & are unremarkable except as noted in HPI & below Physical Exam Vital Signs (Past 24 Hours): Last Vital Signs Temp 36.4 C L 12/11/18 11:25 Pulse 89 12/11/18 14:20 Resp 20 12/11/18 11:25 BP 141/80 H 12/11/18 11:25 Pulse Ox 96 12/11/18 11:25 Physical Exam: General: Awake, alert and oriented x 3. No acute distress. HEENT: Normocephalic, atraumatic. Pupils equal, round and reactive to light and accommodation. Extraocular muscles are intact. Anicteric sclera. Moist mucous membranes. Neck: No JVD. No bruit. Cardiovascular: Regular. Positive S-4. Normal S-1 and S-2. No S-3. No murmurs or rubs. Pulmonary: Clear to auscultation B/L. No rales, rhonchi or wheezing Abdomen: Bowel sounds x 4, soft. No rebound, guarding or tenderness. No organomegaly. Extremities: No clubbing, cyanosis or edema. +2 pedal pulses bilaterally. Skin: Warm and dry.
--- NOTE | 2018-12-11 16:32 | Nephrology Consultation ---
Date of Consultation December 11, 2018 Assessment & Plan (1) Acute on chronic kidney failure: Present on Admission?: Yes History of Present Illness Reason for Consultation: Elsie on CKD Requesting Physician: Dr Saeed Attending Physician: Juan Gr MD History of Present Illness 63 y/o F whom I"m asked to see for ELSIE on CKD. Her baseline creatinine is mid1's, as recently as last month in [facility]. She follows w/ my partner Dr White, last seen . He attributed her CKD 3 to DM and chronic nsaid use - was using them daily for fibromyalgia. Allergies Allergy/AdvReac Type Severity Reaction Status Date / Time tetanus toxoid, adsorbed Allergy Mild PASSED OUT Verified 12/08/18 18:38 AND GOT SICK WHEN A CHILD codeine Allergy Unknown Hallucinati Verified 12/08/18 18:42 ons heparin Allergy Unknown HIT; FLUID Verified 12/08/18 18:38 IN LUNGS morphine Allergy Unknown VIOLENT Verified 12/08/18 18:38 REACTION-"ALMOST " SWELLING Home Medications Home Medications Medication Instructions Recorded Confirmed Type clonazepam 0.5 mg PO BID 06/09/18 12/08/18 History gabapentin 300 mg PO TID 06/09/18 12/08/18 History levothyroxine 25 mcg PO DAILY 06/09/18 12/08/18 History levothyroxine 200 mcg PO DAILY 06/09/18 12/08/18 History metoprolol tartrate 50 mg PO BID 06/09/18 12/08/18 History nortriptyline [Pamelor] 50 mg PO HS 06/09/18 12/08/18 History omeprazole 20 mg PO HS 06/09/18 12/08/18 History ropinirole 1 mg PO HS 06/09/18 12/08/18 History liraglutide 1.8 mg SUBCUT DAILY 06/10/18 12/08/18 History cyclobenzaprine 10 mg PO HS PRN 12/08/18 12/08/18 History duloxetine 30 mg PO HS 12/08/18 12/08/18 History ergocalciferol (vitamin D2) 50,000 unit PO WK 12/08/18 12/08/18 History [Vitamin D2] furosemide 80 mg PO DAILY 12/08/18 12/08/18 History insulin aspart U-100 [Novolog 1 sliding scale dose SUBCUT AC 12/08/18 12/08/18 History Flexpen U-100 Insulin] insulin degludec [Tresiba 160 units SUBCUT HS 12/08/18 12/08/18 History FlexTouch U-200] lisinopril 2.5 mg PO DAILY 12/08/18 12/08/18 History magnesium chloride [Mag 64] 64 mg PO BID 12/08/18 12/08/18 History Patient History Medical History CKD (chronic kidney disease), stage III (Chronic) ELISSA on CPAP (Chronic) HTN (hypertension) (Chronic) HLD (hyperlipidemia) (Chronic) Morbid obesity (Chronic) 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) Depression with anxiety (Chronic) Hypothyroidism (Chronic) History of pulmonary embolism (Chronic) s/p zoraida filter GERD (gastroesophageal reflux disease) (Chronic) RLS (restless legs syndrome) (Chronic) History of DVT (deep vein thrombosis) (Resolved) Presence of IVC filter (Chronic) Fibromyalgia (Chronic) Diabetes (Chronic) Sepsis (Resolved) Surgical History History of cholecystectomy (Resolved) History of total right knee replacement (Resolved) History of tracheostomy (Resolved) 2010, secondary to acute resp failure secondary to pneumonia, transferred to [facility] [place] History of thyroidectomy, total (Resolved) History of colon resection (Resolved) secondary to R colon perforation, resected treated with colostomy and eventual reversal in 2008, Dr. Lerma Family History Father , age 74 Lung cancer Mother , age 45 Cirrhosis Social History Communication Ability: Effective Beliefs That Will Affect Care: None Current Living Situation: Alone Other Information That Helps Us Care for You: No Feels Safe at Home: Yes Safety Concerns: Feels Safe At This Time Smoking Status: Never smoker Hx Alcohol Use: No Hx Substance Use: No Physical Exam Vital Signs (Past 24 Hours): Last Vital Signs Temp 36.3 C L 12/11/18 15:38 Pulse 71 12/11/18 15:38 Resp 20 12/11/18 15:38 BP 132/72 12/11/18 15:38 Pulse Ox 97 12/11/18 15:38 Results & Data Laboratory Results Abnormal lab results 12/10/18 12/11/18 12/11/18 Range/Units 20:12 06:22 07:27 Sodium 131 L (136-145) mmol/L Chloride 94 L (98-107) mmol/L BUN 60 H (7-18) mg/dl Creatinine 2.39 H (0.6-1.2) mg/dl BUN/Creatinine Ratio 25.3 H (10-20) Glucose 154 H (70-99) mg/dl POC Glucose 210 H 157 H (70-99) Calcium 8.3 L (8.5-10.1) mg/dl 12/11/18 Range/Units 11:36 Sodium (136-145) mmol/L Chloride (98-107) mmol/L BUN (7-18) mg/dl Creatinine (0.6-1.2) mg/dl BUN/Creatinine Ratio (10-20) Glucose (70-99) mg/dl POC Glucose 188 H (70-99) Calcium (8.5-10.1) mg/dl
[2018-12-11] MEDS: TRAMADOL HCL 50 MG TABLET PO PRN (20:10)
[2018-12-11] MEDS: DULOXETINE HCL 30 MG CAP PO SCH (20:11)
[2018-12-11] MEDS: PANTOprazole 40 MG TAB PO SCH (20:11)
[2018-12-11] MEDS: NORTRIPTYLINE HCL 25 MG CAP PO SCH (20:11)
[2018-12-11] MEDS: ROPINIROLE HCL 1 MG TABLET PO SCH (20:11)
--- NOTE | 2018-12-11 23:21 | Hospitalist Progress Note ---
Date of Service December 11, 2018 Assessment & Plan (1) Acute on chronic diastolic heart failure: Pt presented with increased lower extremity edema and shortness of breath with exertion, orthopnea x 4-5 days. At least 5 pound weight gain. Pt tried increasing her lasix from 80 mg daily to BID 3 days ago. In ER patient afebrile, pulse 105 temperature 93, respirations 32,015, BP 114/77, 90% on room air down to 88% up to 93% on 3 L NC. No leukocytosis, D- dimer: 490, negative troponin. CXR: mild congestive failure/fluid overload. No evidence of focal pulmonary consolidation. -In ER was given lasix 40mg IV -continues to diurese, still has volume overload hold Lasix in AM and continue Aldactone monitor (2) Hypomagnesemia: Resolved (3) Type 2 diabetes, uncontrolled, with neuropathy: A1c: 9.5 on 09/27/18 -hold home meds Continue insulin glargine at this point (4) CKD (chronic kidney disease), stage III: crea increasing hold Lasix in AM -monitor renal functions (5) HTN (hypertension): -continue metoprolol - hold Lisinopril for increased crea (6) Hypothyroidism: TSH 5.7 Check free T4 -continue levothyroxine (7) Depression with anxiety: -continue cymbalta klonopin (8) ELISSA on CPAP: -continue CPAP with 4L oxygen HS (9) GERD (gastroesophageal reflux disease): -continue PPI (10) RLS (restless legs syndrome): -continue ropinirole DVT Prophylaxis Lovenox, subcutaneous daily Full Code Follows with Dr Kevin Whiteside for routine care Subjective ff up for acute CHF resting in bed, comfortable no dizziness, nausea feels she is improving denies active dyspnea, chest pain no other symptoms Physical Exam Vital Signs (Past 24 Hours): Last Vital Signs Temp 36.4 C L 12/11/18 20:13 Pulse 91 H 12/11/18 23:12 Resp 20 12/11/18 20:13 BP 130/66 12/11/18 20:13 Pulse Ox 95 12/11/18 20:13 Physical Exam: General- oriented x 3, not in distress, speaks in sentences with no effort or accessory muscle use Eyes- anicteric Neck- no JVD Lungs-mild rales b/l bases Heart- normal rate, regular rhythm; no murmurs Abdomen- normal bowel sounds, nondistended, soft, nontender Extremities- grade 1-2 lower leg edema, no calf tenderness Neuro- alert, oriented x 3; no gross focal neurologic deficits Skin- warm & dry Results & Data Laboratory Results Laboratory Results - last 24 hr 12/11/18 12/11/18 12/11/18 06:22 07:27 11:36 Sodium 131 L Potassium 4.0 Chloride 94 L Carbon Dioxide 29 Anion Gap 8.0 BUN 60 H Creatinine 2.39 H Est Cr Clr Drug Dosing 36.8 Est GFR ( Amer) 24.2 Est GFR (Non-Af Amer) 20.9 BUN/Creatinine Ratio 25.3 H Glucose 154 H POC Glucose 157 H 188 H Calcium 8.3 L 12/11/18 12/11/18 16:13 20:15 Sodium Potassium Chloride Carbon Dioxide Anion Gap BUN Creatinine Est Cr Clr Drug Dosing Est GFR ( Amer) Est GFR (Non-Af Amer) BUN/Creatinine Ratio Glucose POC Glucose 166 H 217 H Calcium
[2018-12-12] MEDS: ACETAMINOPHEN 325 MG TAB PO PRN ×2 (01:11→19:40)
[2018-12-12] MEDS: TRAMADOL HCL 50 MG TABLET PO PRN ×2 (04:11→16:08)
[2018-12-12] MEDS: LEVOTHYROXINE SODIUM 200 MCG TABLET PO SCH (06:21)
[2018-12-12] MEDS: LEVOTHYROXINE SODIUM 25 MCG TABLET PO SCH (06:21)
[2018-12-12] MEDS: PROCHLORPERAZINE 5 MG in SYRINGE 4 ML IV PRN ×2 (06:25→13:16)
[2018-12-12 06:59] LABS: Calcium 8.4 mg/dl (8.5-10.1); Creatinine Clr Calc Pharmacy 39.4 ml/min; Est GFR (African American) 26.3; Est GFR (Non-African American) 22.7; Potassium 3.7 mmol/L (3.5-5.1)
[2018-12-12] MEDS: GABAPENTIN 300 MG CAP PO SCH ×3 (08:13→20:34)
[2018-12-12] MEDS: SPIRONOLACTONE 25 MG TAB PO SCH (08:14)
[2018-12-12] MEDS: METOPROLOL TARTRATE 25 MG TAB PO SCH ×2 (08:14→20:34)
[2018-12-12] MEDS: INSULIN GLARGINE 100 UNIT/ML VIAL SC SCH ×2 (08:15→20:44)
[2018-12-12] MEDS: INSULIN ASPART 100 UNITS/ML 3 ML PEN SC SCH ×4 (08:17→20:45)
[2018-12-12] MEDS: clonazePAM 0.5 MG TAB PO SCH ×2 (08:27→20:41)
--- NOTE | 2018-12-12 08:52 | Nephrology Consultation ---
Date of Consultation December 12, 2018 Assessment & Plan (1) Acute on chronic kidney failure: -nonoliguric acute on chronic renal failure likely atn/ischemic from hemodynamic changes w/ HF exacerbation. needs to be diuresed -renal function above baseline on presentation and slight worsenign w/ diuresis. baseline mid 1's as recently as 10/2018. presented 12/08 w/ sCreat 1.9; peak 2.4 on 12/11. -her volume status is not much changed from admission but she has missed some diuretic doses; chemistries, anemia acceptable. -agree w/ low Na diet; added 1.8L FR -appreciate and need daily standing wts and strict I/O -cont bid lasix 40 mg IV > if held again d/t lower BP, may need to lower beta bl ocker or d/c spironolactone -note that spironolactone a new medication here and indicated for DHF; continue for now and monitor creatinine carefully Present on Admission?: Yes History of Present Illness Reason for Consultation: ELSIE on CKD Requesting Physician: Dr Saeed Attending Physician: Juan Gr MD History of Present Illness 63 y/o F whom I'm asked to see for ELSIE on CKD3. She was admitted here for acute on chronic diastolic HF exacerbation on 12/08 w/ orthopnea, exertional dyspnea, 5lb wt gain. Other PMH includes Class 3 obesity, ELISSA on cpap w/ 4L 02NC, DM2 on insulin, hypothryoid, RLS, fibromyalgia, depression. Her baseline creatinine is mid 1's, as recently as last month in [facility]. She follows w/ my partner Dr White, last seen . He attributed her CKD 3 to DM and chronic nsaid use - was using these near daily for fibromyalgia. her presenting creatinine was 2.0 on 12/08; has climbed to 2.2 today, w/ peak 2.4 on 12/11. her urine sediment is contaminated but otherwise bland. She is receiving lasix 40 mg IV bid17. Also on spironolactone 12.5 mg daily. Her am lasix dose was held both 12/11 (for worsened renal function) and 12/10 (for hypotension). Her blood pressures have been somewhat labile w/ SBP ranging from 90s to 170s. She was 158.5 kg standing on 12/09 first standing wt of admission; she is 159.5 today. At home she takes lasix 80 mg daily and lisinopril 2.5 mg daily, metoprolol 50 mg bid. Allergies Allergy/AdvReac Type Severity Reaction Status Date / Time tetanus toxoid, adsorbed Allergy Mild PASSED OUT Verified 12/08/18 18:38 AND GOT SICK WHEN A CHILD codeine Allergy Unknown Hallucinati Verified 12/08/18 18:42 ons heparin Allergy Unknown HIT; FLUID Verified 12/08/18 18:38 IN LUNGS morphine Allergy Unknown VIOLENT Verified 12/08/18 18:38 REACTION-"ALMOST " SWELLING Home Medications Home Medications Medication Instructions Recorded Confirmed Type clonazepam 0.5 mg PO BID 06/09/18 12/08/18 History gabapentin 300 mg PO TID 06/09/18 12/08/18 History levothyroxine 25 mcg PO DAILY 06/09/18 12/08/18 History levothyroxine 200 mcg PO DAILY 06/09/18 12/08/18 History metoprolol tartrate 50 mg PO BID 06/09/18 12/08/18 History nortriptyline [Pamelor] 50 mg PO HS 06/09/18 12/08/18 History omeprazole 20 mg PO HS 06/09/18 12/08/18 History ropinirole 1 mg PO HS 06/09/18 12/08/18 History liraglutide 1.8 mg SUBCUT DAILY 06/10/18 12/08/18 History cyclobenzaprine 10 mg PO HS PRN 12/08/18 12/08/18 History duloxetine 30 mg PO HS 12/08/18 12/08/18 History ergocalciferol (vitamin D2) 50,000 unit PO WK 12/08/18 12/08/18 History [Vitamin D2] furosemide 80 mg PO DAILY 12/08/18 12/08/18 History insulin aspart U-100 [Novolog 1 sliding scale dose SUBCUT AC 12/08/18 12/08/18 History Flexpen U-100 Insulin] insulin degludec [Tresiba 160 units SUBCUT HS 12/08/18 12/08/18 History FlexTouch U-200] lisinopril 2.5 mg PO DAILY 12/08/18 12/08/18 History magnesium chloride [Mag 64] 64 mg PO BID 12/08/18 12/08/18 History Patient History Medical History CKD (chronic kidney disease), stage III (Chronic) ELISSA on CPAP (Chronic) HTN (hypertension) (Chronic) HLD (hyperlipidemia) (Chronic) Morbid obesity (Chronic) 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) Depression with anxiety (Chronic) Hypothyroidism (Chronic) History of pulmonary embolism (Chronic) s/p zoraida filter GERD (gastroesophageal reflux disease) (Chronic) RLS (restless legs syndrome) (Chronic) History of DVT (deep vein thrombosis) (Resolved) Presence of IVC filter (Chronic) Fibromyalgia (Chronic) Diabetes (Chronic) Sepsis (Resolved) Surgical History History of cholecystectomy (Resolved) History of total right knee replacement (Resolved) History of tracheostomy (Resolved) 2010, secondary to acute resp failure secondary to pneumonia, [place] [facility] [place] of thyroidectomy, total (Resolved) History of colon resection (Resolved) secondary to R colon perforation, resected treated with colostomy and eventual reversal in 2008, Dr. Lerma Family History Father , age 74 Lung cancer Mother , age 45 Cirrhosis Social History Communication Ability: Effective Beliefs That Will Affect Care: None Current Living Situation: Alone Other Information That Helps Us Care for You: No Feels Safe at Home: Yes Safety Concerns: Feels Safe At This Time Smoking Status: Never smoker Hx Alcohol Use: No Hx Substance Use: No Review of Systems Constitutional: + fatigue, + weakness and + weight gain; no fever Eyes: no worsening vision Ear, Nose, Mouth, Throat: no dry mouth Respiratory: + dyspnea on exertion; no cough Cardiovascular: + dyspnea on exertion and + edema (RLE chronically > L); no chest pain Gastrointestinal: no abdominal pain, no vomiting and no change in bowel habits Genitourinary (Female): no dysuria, no difficulty urinating, no urinary frequency and no urinary hesitancy Musculoskeletal: + swelling and + body aches Integumentary: no non-healing lesions and no skin ulcer Neurologic: + loss of sensation; no abnormal movements, no dizziness and no confusion Psychiatric: no behavioral changes Endocrine: + fatigue Hematologic / Lymphatic: no easy bleeding Physical Exam Vital Signs (Past 24 Hours): Last Vital Signs Temp 36.3 C L 12/12/18 07:33 Pulse 77 12/12/18 07:33 Resp 20 12/12/18 07:33 BP 144/80 H 12/12/18 07:33 Pulse Ox 90 12/12/18 07:33 Constitutional: well developed, well nourished, + morbidly obese and cooperative on 02NC sitting in bed Eyes: EOM intact bilaterally ENMT: Ears: no external ear abnormality Nose: no external nose abnormality Mouth: + dry oral mucous membranes Neck: no nuchal rigidity Respiratory: normal respiratory effort Auscultation: + diminished lung sounds Cardiovascular: Rate/Rhythm: regular rate (HS distant) and regular rhythm Extremities: + edema (trace RLE >L) Gastrointestinal (Abdomen): Inspection/Auscultation: normal bowel sounds Percussion/Palpation: abdomen soft; abdomen nontender Musculoskeletal: Extremities: strength 5/5 throughout Skin: no rashes, warm and dry Neurologic: milan, fluent speech, no tremor Psychiatric: A+Ox3, euthymic affect Insight: good insight Judgement: good judgement Genitourinary: no abdalla Results & Data Laboratory Results Abnormal lab results 12/11/18 12/11/18 12/11/18 Range/Units 11:36 16:13 20:15 BUN (7-18) mg/dl Creatinine (0.6-1.2) mg/dl BUN/Creatinine Ratio (10-20) Glucose (70-99) mg/dl POC Glucose 188 H 166 H 217 H (70-99) Calcium (8.5-10.1) mg/dl 12/12/18 12/12/18 Range/Units 05:43 07:19 BUN 65 H (7-18) mg/dl Creatinine 2.23 H (0.6-1.2) mg/dl BUN/Creatinine Ratio 29.0 H (10-20) Glucose 132 H (70-99) mg/dl POC Glucose 138 H (70-99) Calcium 8.4 L (8.5-10.1) mg/dl Diagnostic Findings admission cxr > mild congestive failure w/o conslidation (1) Acute on chronic kidney failure Acute renal failure type: with other specified pathological lesion
[2018-12-12] MEDS: FUROSEMIDE 40 MG in SYRINGE 0 ML IV SCH ×2 (09:57→17:27)
--- NOTE | 2018-12-12 16:10 | Cardiology Progress Note ---
Date of Service December 12, 2018 Assessment & Plan (1) Acute on chronic diastolic heart failure: appreciate nephrology input will defer diuretic management to their expertise (2) CKD (chronic kidney disease), stage III: downtrending I did start spironolactone for her diastolic dysfunction this admission, ok to d/c from my standpoint if deemed necessary for renal function. (3) ELISSA on CPAP: asked patient to have someone bring in her home machine no doubt that recovery process could be slowed without nocturnal cpap Subjective Pt seen and examined, states that she's feeling discouraged about her renal function and would like to be off telemetry monitoring. Still sob. Denies cp, palpitations, lightheadedness or dizziness. Tele reviewed: sinus rhythm without arrhythmia or significant ectopy. Physical Exam Vital Signs (Past 24 Hours): Last Vital Signs Temp 36.6 C 12/12/18 11:29 Pulse 68 12/12/18 11:29 Resp 20 12/12/18 11:29 BP 108/62 12/12/18 11:29 Pulse Ox 96 12/12/18 11:29 Physical Exam: General: Awake, alert and oriented x 3. No acute distress. HEENT: Normocephalic, atraumatic. Pupils equal, round and reactive to light and accommodation. Extraocular muscles are intact. Anicteric sclera. Moist mucous membranes. Neck: No JVD. No bruit. Cardiovascular: Regular. Positive S-4. Normal S-1 and S-2. No S-3. No murmurs or rubs. Pulmonary: Clear to auscultation B/L. No rales, rhonchi or wheezing Abdomen: Bowel sounds x 4, soft. No rebound, guarding or tenderness. No organomegaly. Extremities: No clubbing, cyanosis or edema. +2 pedal pulses bilaterally. Skin: Warm and dry.
[2018-12-12] MEDS: NORTRIPTYLINE HCL 25 MG CAP PO SCH (20:34)
[2018-12-12] MEDS: DULOXETINE HCL 30 MG CAP PO SCH (20:34)
[2018-12-12] MEDS: ROPINIROLE HCL 1 MG TABLET PO SCH (20:35)
[2018-12-12] MEDS: PANTOprazole 40 MG TAB PO SCH (20:35)
--- NOTE | 2018-12-12 22:08 | Hospitalist Progress Note ---
Date of Service December 12, 2018 Assessment & Plan (1) Acute on chronic diastolic heart failure: Pt presented with increased lower extremity edema and shortness of breath with exertion, orthopnea x 4-5 days. At least 5 pound weight gain. Pt tried increasing her lasix from 80 mg daily to BID 3 days ago. In ER patient afebrile, pulse 105 temperature 93, respirations 32,015, BP 114/77, 90% on room air down to 88% up to 93% on 3 L NC. No leukocytosis, D- dimer: 490, negative troponin. CXR: mild congestive failure/fluid overload. No evidence of focal pulmonary consolidation. -In ER was given lasix 40mg IV given Lasix IV while admitted, diuresed fairly, crea increased to 2.3 Nephro consulted, recommend to continue Lasix IV, monitor crea closely (2) Hypomagnesemia: Resolved (3) Type 2 diabetes, uncontrolled, with neuropathy: A1c: 9.5 on 09/27/18 -hold home meds Continue insulin glargine at this point (4) CKD (chronic kidney disease), stage III: crea increasing monitor while on Lasix (5) HTN (hypertension): -continue metoprolol - hold Lisinopril for increased crea (6) Hypothyroidism: TSH 5.7 Check free T4: normal -continue levothyroxine repeat TFTs as outpatient (7) Depression with anxiety: -continue cymbalta, klonopin (8) ELISSA on CPAP: -continue CPAP with 4L oxygen HS (9) GERD (gastroesophageal reflux disease): -continue PPI (10) RLS (restless legs syndrome): -continue ropinirole DVT Prophylaxis Lovenox, subcutaneous daily Full Code Follows with Dr Kevin Whiteside for routine care Subjective ff up for CHF exacerbation seen resting in bedside chair, not in distress still has some dyspnea on exertion no chest pain, has some nausea this AM no other symptoms Physical Exam Vital Signs (Past 24 Hours): Last Vital Signs Temp 37.0 C 12/12/18 19:46 Pulse 89 12/12/18 19:46 Resp 18 12/12/18 19:46 BP 129/73 12/12/18 19:46 Pulse Ox 99 12/12/18 19:46 Physical Exam: General- oriented x 3, not in distress, speaks in sentences with no effort or accessory muscle use Eyes- anicteric Neck- no JVD Lungs- mild rales at the bases no wheezing Heart- normal rate, regular rhythm; no murmurs Abdomen- normal bowel sounds, nondistended, soft, nontender Extremities-grade 1-2 b/l leg edema, no calf tenderness Neuro- alert, oriented x 3; no gross focal neurologic deficits Skin- warm & dry Results & Data Laboratory Results Laboratory Results - last 24 hr 12/12/18 12/12/18 12/12/18 05:43 07:19 11:27 Sodium 136 Potassium 3.7 Chloride 99 Carbon Dioxide 29 Anion Gap 8.0 BUN 65 H Creatinine 2.23 H Est Cr Clr Drug Dosing 39.4 Est GFR ( Amer) 26.3 Est GFR (Non-Af Amer) 22.7 BUN/Creatinine Ratio 29.0 H Glucose 132 H POC Glucose 138 H 138 H Calcium 8.4 L 12/12/18 12/12/18 16:48 20:43 Sodium Potassium Chloride Carbon Dioxide Anion Gap BUN Creatinine Est Cr Clr Drug Dosing Est GFR ( Amer) Est GFR (Non-Af Amer) BUN/Creatinine Ratio Glucose POC Glucose 150 H 145 H Calcium
[2018-12-13] MEDS: TRAMADOL HCL 50 MG TABLET PO PRN ×3 (00:28→21:36)
[2018-12-13] MEDS: LEVOTHYROXINE SODIUM 25 MCG TABLET PO SCH (05:22)
[2018-12-13] MEDS: LEVOTHYROXINE SODIUM 200 MCG TABLET PO SCH (05:22)
[2018-12-13 07:50] LABS: BUN Creatinine Ratio 29.3 (10-20); Calcium 8.7 mg/dl (8.5-10.1); Creatinine Clr Calc Pharmacy 42.2 ml/min; Est GFR (African American) 28.8; Est GFR (Non-African American) 24.9; Potassium 3.5 mmol/L (3.5-5.1)
[2018-12-13] MEDS: METOPROLOL TARTRATE 25 MG TAB PO SCH ×2 (09:07→21:26)
[2018-12-13] MEDS: SPIRONOLACTONE 25 MG TAB PO SCH (09:07)
[2018-12-13] MEDS: FUROSEMIDE 40 MG in SYRINGE 0 ML IV SCH ×2 (09:07→17:32)
[2018-12-13] MEDS: GABAPENTIN 300 MG CAP PO SCH ×3 (09:08→21:26)
[2018-12-13] MEDS: INSULIN GLARGINE 100 UNIT/ML VIAL SC SCH ×2 (09:10→21:33)
[2018-12-13] MEDS: INSULIN ASPART 100 UNITS/ML 3 ML PEN SC SCH ×4 (09:11→21:32)
[2018-12-13] MEDS: clonazePAM 0.5 MG TAB PO SCH ×2 (09:11→21:25)
--- NOTE | 2018-12-13 13:48 | Cardiology Progress Note ---
Date of Service December 13, 2018 Assessment & Plan (1) Acute on chronic diastolic heart failure: appreciate nephrology input diureses well overnight clinically improving will cont with current regimen and follow volume status clinically (2) CKD (chronic kidney disease), stage III: improved with diuresis will follow (3) ELISSA on CPAP: asked patient to have someone bring in her home machine no doubt that recovery process could be slowed without nocturnal cpap Subjective Pt seen and examined, states that her breathing is somewhat improved as is her LE edema. Discouraged but denies cp, palpitations, lightheadedness or dizziness. tele reviewed: sinus rhythm without arrhythmia or significant ectopy. Review of Systems All systems reviewed & are unremarkable except as noted in HPI & below Physical Exam Vital Signs (Past 24 Hours): Last Vital Signs Temp 36.5 C 12/13/18 12:00 Pulse 85 12/13/18 12:00 Resp 18 12/13/18 12:00 BP 146/77 H 12/13/18 12:00 Pulse Ox 97 12/13/18 12:00 Physical Exam: General: Awake, alert and oriented x 3. No acute distress. HEENT: Normocephalic, atraumatic. Pupils equal, round and reactive to light and accommodation. Extraocular muscles are intact. Anicteric sclera. Moist mucous membranes. Neck: No JVD. No bruit. Cardiovascular: Regular. Positive S-4. Normal S-1 and S-2. No S-3. No murmurs or rubs. Pulmonary: Clear to auscultation B/L. No rales, rhonchi or wheezing Abdomen: Bowel sounds x 4, soft. No rebound, guarding or tenderness. No organomegaly. Extremities: No clubbing, cyanosis. 2 + B/L LE pitting edema. +2 pedal pulses bilaterally. Skin: Warm and dry.
--- NOTE | 2018-12-13 16:03 | Hospitalist Progress Note ---
Date of Service December 13, 2018 Assessment & Plan (1) Acute on chronic diastolic heart failure: Pt presented with increased lower extremity edema and shortness of breath with exertion, orthopnea x 4-5 days with weight gain on 12/08/18 -since that time patient has been on IV Lasix as 40 mg IV BID -as patient is clinically improving will plan on transitioning to oral torsemide starting on 12/14/18 -continue with spirolactone as 12.5 mg -during this admission patient had some acute kidney injury with diuretics and nephrology service had been consulted but the creatinine has been stabilizing as low 2s (2) Hypomagnesemia: Resolved (3) Type 2 diabetes, uncontrolled, with neuropathy: A1c: 9.5 on 09/27/18 -hold home liraglutide -at home patient uses degludec 160 units qhs and this is being modified in the hospital as 80 units BID Lantus -continue sliding scale insulin as needed (4) CKD (chronic kidney disease), stage III: on this admission, nephrology service following the patient for acute kidney injury while on IV diuretics creatinine stabilizing as low 2s (5) HTN (hypertension): -continue metoprolol - will resume lisinopril 2.5 mg daily starting on 12/14/18 (6) Hypothyroidism: TSH 5.7 free T4: normal -continue levothyroxine repeat TFTs as outpatient (7) Depression with anxiety: -continue cymbaljeana branhamonopin (8) ELISSA on CPAP: -continue CPAP with 4L oxygen HS (9) GERD (gastroesophageal reflux disease): -continue PPI (10) RLS (restless legs syndrome): -continue ropinirole Morbid Obesity with BMI 59.8 encourage ambulation DVT Prophylaxis: has reported allergy to heparin, renal function does not permit the use of Lovenox, encourage ambulation and use of SCDs Full Code Follows with Dr Kevin Whiteside for routine care Subjective Patient breathing on room air. She reports overall decrease in leg swelling. Denies acute shortness of breath recently. Denies chest pain. Denies abdominal pain. Physical Exam Vital Signs (Past 24 Hours): Last Vital Signs Temp 36.5 C 12/13/18 12:00 Pulse 85 12/13/18 12:00 Resp 18 12/13/18 12:00 BP 146/77 H 12/13/18 12:00 Pulse Ox 97 12/13/18 12:00 Constitutional: WD/WN, vitals as above Eyes: PERRL, conjunctivae normal, anicteric sclerae EOM intact bilaterally ENMT: external ear and nose normal, oropharynx normal Neck: trachea midline, no thyromegaly Respiratory: normal respiratory effort, lungs clear to auscultation Cardiovascular: Rate/Rhythm: regular rate and regular rhythm mild lower extremity edema bilaterally Gastrointestinal (Abdomen): normal bowel sounds, soft, nontender, no hepatosplenomegaly Musculoskeletal: Head/Neck/Chest: normocephalic and head atraumatic Neurologic: PERRL, EOMI, accommodation nl, no face palsy, no dysarthria CN's II-XI intact bilaterally Psychiatric: A+Ox3, euthymic affect
--- NOTE | 2018-12-13 18:45 | Nephrology Progress Note ---
Date of Service December 13, 2018 Assessment & Plan (1) Acute on chronic kidney failure: -nonoliguric acute on chronic renal failure likely atn/ischemic from hemodynamic changes w/ HF exacerbation. needs to be diuresed -renal function above baseline on presentation and slight worsenign w/ diuresis. baseline mid 1's as recently as 10/2018. presented 12/08 w/ sCreat 1.9; peak 2.4 on 12/11. improved to 2.1 today -her volume status is acceptable; chemistries, anemia acceptable. -agree w/ low Na diet; added 1.8L FR -appreciate and need daily standing wts and strict I/O >recommend continue spironolactone current dose >stopped IV lasix; had recommended trial of torsemide 40 mg daily ; however pt denies issues taking more than one diuretic dose daily >> recommend therefore lasix 80 mg bid po doses spaced 4-6 hrs apart at least -weekly bmp x 4 will be ordered; pls avoid lab draws on Fridays -daily standing wts logged at home and if possible home bp -f/u in CKD clinic in 4-6 wks -will sign off pls call if ? Subjective seen on afternoon rounds - sitting at bedside hungry on ra ambulatory w/ care. Physical Exam Vital Signs (Past 24 Hours): Last Vital Signs Temp 36.5 C 12/13/18 12:00 Pulse 93 H 12/13/18 16:00 Resp 18 12/13/18 12:00 BP 146/77 H 12/13/18 12:00 Pulse Ox 97 12/13/18 12:00 Constitutional: well developed, well nourished, + morbidly obese and cooperative on RA nad Eyes: EOM intact bilaterally ENMT: Ears: no external ear abnormality Nose: no external nose abnormality Mouth: + dry oral mucous membranes Neck: no nuchal rigidity Respiratory: normal respiratory effort Auscultation: + diminished lung sounds Cardiovascular: Rate/Rhythm: regular rate (HS distant) and regular rhythm Extremities: + edema (at most trace BLE) Gastrointestinal (Abdomen): Inspection/Auscultation: normal bowel sounds Percussion/Palpation: abdomen soft; abdomen nontender Musculoskeletal: Extremities: strength 5/5 throughout Skin: no rashes, warm and dry Neurologic: milan, fluent speech Psychiatric: Orientation: alert and oriented x 3 Affect: + labile affect Insight: good insight Judgement: good judgement Results & Data Laboratory Results Abnormal lab results 12/12/18 12/13/18 12/13/18 Range/Units 20:43 06:37 07:24 BUN 61 H (7-18) mg/dl Creatinine 2.07 H (0.6-1.2) mg/dl BUN/Creatinine Ratio 29.3 H (10-20) Glucose 122 H (70-99) mg/dl POC Glucose 145 H 132 H (70-99) 12/13/18 12/13/18 Range/Units 11:26 17:11 BUN (7-18) mg/dl Creatinine (0.6-1.2) mg/dl BUN/Creatinine Ratio (10-20) Glucose (70-99) mg/dl POC Glucose 185 H 153 H (70-99) (1) Acute on chronic kidney failure Acute renal failure type: with other specified pathological lesion
[2018-12-13] MEDS: DULOXETINE HCL 30 MG CAP PO SCH (21:26)
[2018-12-13] MEDS: ROPINIROLE HCL 1 MG TABLET PO SCH (21:27)
[2018-12-13] MEDS: PANTOprazole 40 MG TAB PO SCH (21:27)
[2018-12-13] MEDS: NORTRIPTYLINE HCL 25 MG CAP PO SCH (21:27)
[2018-12-14] MEDS: ACETAMINOPHEN 325 MG TAB PO PRN (03:36)
[2018-12-14] MEDS: LEVOTHYROXINE SODIUM 200 MCG TABLET PO SCH (06:03)
[2018-12-14] MEDS: LEVOTHYROXINE SODIUM 25 MCG TABLET PO SCH (06:03)
[2018-12-14 06:38] LABS: BUN Creatinine Ratio 31.8 (10-20); Calcium 8.7 mg/dl (8.5-10.1); Creatinine Clr Calc Pharmacy 49.9 ml/min; Est GFR (African American) 35.1; Est GFR (Non-African American) 30.2; Magnesium 1.7 mg/dl (1.8-2.4); Potassium 3.2 mmol/L (3.5-5.1)
[2018-12-14] MEDS: MAGNESIUM SULFATE / D5W 1 GM/100 ML BAG IV SCH ×2 (08:05→09:52)
[2018-12-14] MEDS: TRAMADOL HCL 50 MG TABLET PO PRN (08:07)
[2018-12-14] MEDS: METOPROLOL TARTRATE 25 MG TAB PO SCH (08:08)
[2018-12-14] MEDS: clonazePAM 0.5 MG TAB PO SCH (08:08)
[2018-12-14] MEDS: SPIRONOLACTONE 25 MG TAB PO SCH (08:09)
[2018-12-14] MEDS: GABAPENTIN 300 MG CAP PO SCH ×2 (08:09→13:13)
[2018-12-14] MEDS: INSULIN ASPART 100 UNITS/ML 3 ML PEN SC SCH ×2 (08:12→12:24)
[2018-12-14] MEDS: INSULIN GLARGINE 100 UNIT/ML VIAL SC SCH (08:14)
[2018-12-14] MEDS: LISINOPRIL 2.5 MG TAB PO SCH (08:44)
[2018-12-14] MEDS ORDERED: MAGNESIUM OXIDE 400 MG TAB PO SCH (09:00)
[2018-12-14] MEDS ORDERED: TORSEMIDE 20 MG TAB PO SCH (09:00)
[2018-12-14] MEDS ORDERED: FUROSEMIDE 80 MG TAB PO SCH (09:00)
--- NOTE | 2018-12-14 13:52 | Cardiology Progress Note ---
Date of Service December 14, 2018 Assessment & Plan (1) Acute on chronic diastolic heart failure: appreciate nephrology input diurese well overnight agree with po regimen as per nephrology ok to d/c to home from cardiac standpoint will need cardiac f/u in 2 weeks, my office will call to arrange (2) CKD (chronic kidney disease), stage III: improved with diuresis (3) ELISSA on CPAP: asked patient to have someone bring in her home machine no doubt that recovery process could be slowed without nocturnal cpap Subjective Pt seen and examined, states that she felt a little dizzy this morning upon standing but otherwise well. Breathing back to baseline. Denies cp, sob, palpitations, lightheadedness or dizziness. tele reviewed: sinus rhythm without arrhythmia. Review of Systems All systems reviewed & are unremarkable except as noted in HPI & below Physical Exam Vital Signs (Past 24 Hours): Last Vital Signs Temp 36.6 C 12/14/18 11:25 Pulse 74 12/14/18 11:25 Resp 18 12/14/18 11:25 BP 98/61 L 12/14/18 11:25 Pulse Ox 91 12/14/18 11:25 Physical Exam: General: Awake, alert and oriented x 3. No acute distress. HEENT: Normocephalic, atraumatic. Pupils equal, round and reactive to light and accommodation. Extraocular muscles are intact. Anicteric sclera. Moist mucous membranes. Neck: No JVD. No bruit. Cardiovascular: Regular. Positive S-4. Normal S-1 and S-2. No S-3. No murmurs or rubs. Pulmonary: Clear to auscultation B/L. No rales, rhonchi or wheezing Abdomen: Bowel sounds x 4, soft. No rebound, guarding or tenderness. No organomegaly. Extremities: No clubbing, cyanosis or edema. +2 pedal pulses bilaterally. Skin: Warm and dry.
[2018-12-14] MEDS ORDERED: GABAPENTIN 100 MG CAP PO SCH (14:00)
--- NOTE | 2018-12-14 14:22 | Hospitalist Progress Note ---
Date of Service December 14, 2018 Assessment & Plan (1) Acute on chronic diastolic heart failure: Pt presented with increased lower extremity edema and shortness of breath with exertion, orthopnea x 4-5 days with weight gain on 12/08/18 -since that time patient has been on IV Lasix as 40 mg IV BID -as patient is clinically improving will plan on transitioning to oral Lasix 80 mg BID starting on 12/14/18 -continue with spirolactone as 12.5 mg daily -during this admission patient had some acute kidney injury with diuretics and nephrology service had been consulted but the creatinine has been stabilizing as low 2s and on discharge day the creatinine 1.76 -patient to be discharged with prescriptions for Lasix 80 mg BID with spirolactone 12.5 mg daily patient will go to see primary care doctor for routine checks of serum electrolytes and renal function after hospital discharge CHF Instructions Call 911 and go to the Emergency Room if: * You have tightness or pain in your chest that does not go away with rest or Nitroglycerin * You are very short of breath even with rest Call your doctor if any of the following symptoms or problems start or get worse: * Shortness of breath or difficulty breathing * Wake up at night short of breath * Chest pain * Cough * Swelling of your hands, fee, or legs * More fatigued or tired with your normal activity * Palpitations - sudden fast heart beats WEIGHT * Weigh yourself every morning after using the bathroom. * Use the same scale. * Wear the same amount of clothing. * Write your weight down on your chart. * Call your doctor if you gain more than 2-3 pounds in 1-2 days. MEDICATIONS * Use this discharge instruction sheet for instructions. * Take your medications at the time your doctor ordered. * Do not skip a dose of your medicines. * If you miss a dose of medicine, take as soon as possible, but DO NOT DOUBLE A DOSE. * Read your medicine information when you get home. * Know all of the side effects of your medicine. * Call your doctor's office if you have any side effects. * Be sure all of your doctors know what medicine and herbs you take (including cold, flu, and herbal medicine). * Pain Medicine: If you do not get relief from your pain, please call your doctor for help. Take the following with you to your follow-up doctor appointments: * Weight Chart * Medication List * List of questions Do not drink excessive alcohol, beer or wine. (2) Hypomagnesemia: was given IV magnesium on 12/14/18 and oral magnesium oral prescription of magnesium also made patient will go to see primary care doctor for routine checks of serum electrolytes and renal function after hospital discharge (3) Type 2 diabetes, uncontrolled, with neuropathy: A1c: 9.5 on 09/27/18 -hold home liraglutide while inpatient -at home patient uses degludec 160 units qhs and this is being modified in the hospital as 80 units BID Lantus -patient also received sliding scale insulin as needed -patient can resume home dose diabetes mellitus regimen and follow up with [facility] care doctor -have reduced gabapentin 300 mg TID to 100 mg TID to avoid hypotension with increased maintenance doses of diuretics (4) CKD (chronic kidney disease), stage III: on this admission, nephrology service following the patient for acute kidney injury while on IV diuretics -during this admission patient had some acute kidney injury with diuretics and nephrology service had been consulted but the creatinine has been stabilizing as low 2s and on discharge day the creatinine 1.76 (5) HTN (hypertension): -continue metoprolol - will resume lisinopril 2.5 mg daily starting on 12/14/18 -continue these medications as outpatient (6) Hypothyroidism: TSH 5.7 free T4: normal -continue levothyroxine -patient to follow up thyroid function with primary medical doctor (7) Depression with anxiety: -continue cymbalta, klonopin (8) ELISSA on CPAP: -continue CPAP with 4L oxygen HS (9) GERD (gastroesophageal reflux disease): -continue PPI (10) RLS (restless legs syndrome): -continue ropinirole Morbid Obesity with BMI 60.3 encourage ambulation DVT Prophylaxis: has reported allergy to heparin, renal function does not permit the use of Lovenox, encourage ambulation and use of SCDs Discharge Diagnosis Acute on chronic diastolic heart failure, Type 2 diabetes with with neuropathy, Hypertension, Obstructive sleep apnea on CPAP, Chronic Kidney disease stage III, Hypomagnesemia, Obesity with BMI 60.3 Discharge follow up 12/18/2018 1:10 PM Provider Kevin Whiteside DO Department [facility] 12/25/2018 9:00 PM Provider Paige Patel MD Department Sleep Lab, [facility] 01/11/2019 11:10 AM Provider TATIANA Negrete Department Sleep Disorders, [facility] 01/12/2019 3:00 PM Provider Marjorie Powell PA-C Department Cardiology, [facility] 01/17/2019 10:30 AM Provider [facility] Department Pharmacy, [facility] 01/24/2019 2:40 PM Provider Gia White MD Department Nephrology, [facility] Subjective Patient breathing on room air. Denies acute shortness of breath recently. Denies chest pain. Denies abdominal pain. Physical Exam Vital Signs (Past 24 Hours): Last Vital Signs Temp 36.6 C 12/14/18 11:25 Pulse 74 12/14/18 11:25 Resp 18 12/14/18 11:25 BP 98/61 L 12/14/18 11:25 Pulse Ox 91 12/14/18 11:25 Constitutional: WD/WN, vitals as above + obese Eyes: PERRL, conjunctivae normal, anicteric sclerae EOM intact bilaterally ENMT: external ear and nose normal, oropharynx normal Neck: trachea midline, no thyromegaly Respiratory: normal respiratory effort, lungs clear to auscultation Cardiovascular: Rate/Rhythm: regular rate and regular rhythm Gastrointestinal (Abdomen): normal bowel sounds, soft, nontender, no hepatosplenomegaly Musculoskeletal: Head/Neck/Chest: normocephalic and head atraumatic Neurologic: PERRL, EOMI, accommodation nl, no face palsy, no dysarthria CN's II-XI intact bilaterally Psychiatric: A+Ox3, euthymic affect
--- NOTE | 2018-12-14 14:33 | Discharge Summary ---
Date of Service December 14, 2018 Admission HPI Per Admitting Provider Pt is 63 y/o F with PMH diastolic CHF, HTN, dyslipidemia, uncontrolled DM II, GERD, ELISSA on CPAP with 4L 02, obesity, acquired hypothyroidism, h/o PE, s/p IVC filter, depression, CKD 3, RLS, fibromyalgia, morbid obesity presented to ER with complaint of increased lower extremity edema and shortness of breath x 4-5 days. Patient states she noticed increased bilateral lower extremity edema, abdominal bloating, orthopnea, shortness of breath with walking. She reports thinks gained at least 5 pounds over the past several days (unsure exact weight gain secondary to scale max weight of 350 pounds). Patient is on Lasix 80 mg daily. She reports 3 days ago increased to twice daily without much relief. Patient denies any food indiscretions, however significant other reports noticed that patient patient was recently eating Spam. Patient with history of hospitalization 05/2018 for CHF. Patient denies chest pain. Reports some discomfort between shoulder blades. Denies fever/chills, diaphoresis, N/V/D/C, BURROWS, dizziness, syncope, vision changes, neck pain, palpitations, cough, sore throat, choking, otalgia, rhinorrhea, abdominal pain, paresthesias, rashes, urinary symptoms. 05/2018 Echo: EF: 65-70%, mild concentric LVH, no significant valvular pathology. Admission Exam Per Admitting Provider General: no distress, WDWN Head: normocephalic, atraumatic Eyes: PERRL, EOM's intact, conjunctiva non-injected, anicteric ENT: normal inspection external ears, nose, mucous membranes moist Neck: supple, trachea midline, non-tender Lungs: clear, no respiratory distress, no wheezing/rhonchi/rales CV: RRR, bilateral leg edema Abd: normal BS, soft, protuberant, non-tender Ext: no cyanosis, no calf tenderness Neuro: A&O x 3, no focal deficits noted, normal affect Skin: warm, dry Principal Diagnosis Acute on chronic diastolic heart failure, Type 2 diabetes with with neuropathy, Hypertension, Obstructive sleep apnea on CPAP, Chronic Kidney disease stage III, Hypomagnesemia, Obesity with BMI 60.3 Discharge Exam Constitutional WD/WN, vitals as above + obese Eyes PERRL, conjunctivae normal, anicteric sclerae EOM intact bilaterally ENMT external ear and nose normal, oropharynx normal Neck trachea midline, no thyromegaly Respiratory normal respiratory effort, lungs clear to auscultation Cardiovascular Rate/Rhythm: regular rate and regular rhythm Gastrointestinal (Abdomen) normal bowel sounds, soft, nontender, no hepatosplenomegaly Musculoskeletal Head/Neck/Chest: normocephalic and head atraumatic Neurologic PERRL, EOMI, accommodation nl, no face palsy, no dysarthria CN's II-XI intact bilaterally Psychiatric A+Ox3, euthymic affect Discharge Data Allergies Allergy/AdvReac Type Severity Reaction Status Date / Time tetanus toxoid, adsorbed Allergy Mild PASSED OUT Verified 12/08/18 18:38 AND GOT SICK WHEN A CHILD codeine Allergy Unknown Hallucinati Verified 12/08/18 18:42 ons heparin Allergy Unknown HIT; FLUID Verified 12/08/18 18:38 IN LUNGS morphine Allergy Unknown VIOLENT Verified 12/08/18 18:38 REACTION-"ALMOST " SWELLING Consultations 12/08/18 18:15 ED Decision to Admit Stat 12/08/18 19:55 Consult Case Management - Discharge Planning Routine 12/09/18 07:00 Consult Cardiology Routine 12/11/18 15:21 Consult Nephrology Routine Hospital Course (1) Acute on chronic diastolic heart failure: Pt presented with increased lower extremity edema and shortness of breath with exertion, orthopnea x 4-5 days with weight gain on 12/08/18 -since that time patient has been on IV Lasix as 40 mg IV BID -as patient is clinically improving will plan on transitioning to oral Lasix 80 mg BID starting on 12/14/18 -continue with spirolactone as 12.5 mg daily -during this admission patient had some acute kidney injury with diuretics and nephrology service had been consulted but the creatinine has been stabilizing as low 2s and on discharge day the creatinine 1.76 -patient to be discharged with prescriptions for Lasix 80 mg BID with spirolactone 12.5 mg daily patient will go to see primary care doctor for routine checks of serum electrolytes and renal function after hospital discharge CHF Instructions Call 911 and go to the Emergency Room if: * You have tightness or pain in your chest that does not go away with rest or Nitroglycerin * You are very short of breath even with rest Call your doctor if any of the following symptoms or problems start or get worse: * Shortness of breath or difficulty breathing * Wake up at night short of breath * Chest pain * Cough * Swelling of your hands, fee, or legs * More fatigued or tired with your normal activity * Palpitations - sudden fast heart beats WEIGHT * Weigh yourself every morning after using the bathroom. * Use the same scale. * Wear the same amount of clothing. * Write your weight down on your chart. * Call your doctor if you gain more than 2-3 pounds in 1-2 days. MEDICATIONS * Use this discharge instruction sheet for instructions. * Take your medications at the time your doctor ordered. * Do not skip a dose of your medicines. * If you miss a dose of medicine, take as soon as possible, but DO NOT DOUBLE A DOSE. * Read your medicine information when you get home. * Know all of the side effects of your medicine. * Call your doctor's office if you have any side effects. * Be sure all of your doctors know what medicine and herbs you take (including cold, flu, and herbal medicine). * Pain Medicine: If you do not get relief from your pain, please call your doctor for help. Take the following with you to your follow-up doctor appointments: * Weight Chart * Medication List * List of questions Do not drink excessive alcohol, beer or wine. (2) Hypomagnesemia: was given IV magnesium on 12/14/18 and oral magnesium oral prescription of magnesium also made patient will go to see primary care doctor for routine checks of serum electrolytes and renal function after hospital discharge (3) Type 2 diabetes, uncontrolled, with neuropathy: A1c: 9.5 on 09/27/18 -hold home liraglutide while inpatient -at home patient uses degludec 160 units qhs and this is being modified in the hospital as 80 units BID Lantus -patient also received sliding scale insulin as needed -patient can resume home dose diabetes mellitus regimen and follow up with primary care doctor -have reduced gabapentin 300 mg TID to 100 mg TID to avoid hypotension with increased maintenance doses of diuretics (4) CKD (chronic kidney disease), stage III: on this admission, nephrology service following the patient for acute kidney injury while on IV diuretics -during this admission patient had some acute kidney injury with diuretics and nephrology service had been consulted but the creatinine has been stabilizing as low 2s and on discharge day the creatinine 1.76 (5) HTN (hypertension): -continue metoprolol - will resume lisinopril 2.5 mg daily starting on 12/14/18 -continue these medications as outpatient (6) Hypothyroidism: TSH 5.7 free T4: normal -continue levothyroxine -patient to follow up thyroid function with primary medical doctor (7) Depression with anxiety: -continue cymbalta, klonopin (8) ELISSA on CPAP: -continue CPAP with 4L oxygen HS (9) GERD (gastroesophageal reflux disease): -continue PPI (10) RLS (restless legs syndrome): -continue ropinirole Morbid Obesity with BMI 60.3 encourage ambulation DVT Prophylaxis: has reported allergy to heparin, renal function does not permit the use of Lovenox, encourage ambulation and use of SCDs Discharge Diagnosis Acute on chronic diastolic heart failure, Type 2 diabetes with with neuropathy, Hypertension, Obstructive sleep apnea on CPAP, Chronic Kidney disease stage III, Hypomagnesemia, Obesity with BMI 60.3 Discharge follow up 12/18/2018 1:10 PM Provider Kevin Whiteside DO Department Family Practice [facility] 12/25/2018 9:00 PM Provider Paige Patel MD Department Sleep Lab, [facility] 01/11/2019 11:10 AM Provider TATIANA Negrete Department Sleep Disorders, [facility] 01/12/2019 3:00 PM Provider Marjorie Powell PA-C Department Cardiology, [facility] 01/17/2019 10:30 AM Provider [facility] Department Pharmacy, [facility] 01/24/2019 2:40 PM Provider Gia White MD Department Nephrology, [facility] Total Time Total Time Spent Total Time Spent (In Minutes): 40 minutes Total Time Includes: Examination of the Patient, Discharge Planning and Medication Reconciliation Discharge Plan Discharge Items Patient Disposition: Home - Self-Care Reason For Visit: CHF Discharge Diagnosis: Acute on chronic diastolic heart failure, Type 2 diabetes with with neuropathy, Hypertension, Obstructive sleep apnea on CPAP, Chronic Kidney disease stage III, Hypomagnesemia, Obesity with BMI 60.3 Condition: Good Discharge Goals: Improve disease control Activity: Resume your previous activity Non-emergency contact: Primary Care Provider Call non-emergency contact if: you have any medication questions Follow-up/Referrals: Kevin Whiteside DO [Primary Care Provider] - Diet: Carb Consistent or DM2, Heart Healthy and Low Sodium (2gm) Fluids: 1800ml (7 cups) Addtl Provider Instructions: 12/18/2018 1:10 PM Provider Kevin Whiteside DO Department Family Practice [facility] 12/25/2018 9:00 PM Provider Paige Patel MD Department Sleep Lab, [facility] 01/11/2019 11:10 AM Provider TATIANA Negrete Department Sleep Disorders, [facility] 01/12/2019 3:00 PM Provider Marjorie Powell PA-C Department Cardiology, [facility] 01/17/2019 10:30 AM Provider [facility] Department Pharmacy, [facility] 01/24/2019 2:40 PM Provider Gia White MD Department Nephrology, [facility] Instructions Call 911 and go to the Emergency Room if: * You have tightness or pain in your chest that does not go away with rest or Nitroglycerin * You are very short of breath even with rest Call your doctor if any of the following symptoms or problems start or get worse: * Shortness of breath or difficulty breathing * Wake up at night short of breath * Chest pain * Cough * Swelling of your hands, fee, or legs * More fatigued or tired with your normal activity * Palpitations - sudden fast heart beats WEIGHT * Weigh yourself every morning after using the bathroom. * Use the same scale. * Wear the same amount of clothing. * Write your weight down on your chart. * Call your doctor if you gain more than 2-3 pounds in 1-2 days. MEDICATIONS * Use this discharge instruction sheet for instructions. * Take your medications at the time your doctor ordered. * Do not skip a dose of your medicines. * If you miss a dose of medicine, take as soon as possible, but DO NOT DOUBLE A DOSE. * Read your medicine information when you get home. * Know all of the side effects of your medicine. * Call your doctor's office if you have any side effects. * Be sure all of your doctors know what medicine and herbs you take (including cold, flu, and herbal medicine). * Pain Medicine: If you do not get relief from your pain, please call your doctor for help. Take the following with you to your follow-up doctor appointments: * Weight Chart * Medication List * List of questions Do not drink excessive alcohol, beer or wine. Prescriptions: New spironolactone 25 mg Tablet 12.5 mg PO DAILY 30 Days Qty: 15 RF: 0 furosemide 80 mg Tablet 80 mg PO BID17 30 Days Qty: 60 RF: 0 gabapentin 100 mg Capsule 100 mg PO TID 30 Days Qty: 90 RF: 0 magnesium oxide 400 mg (241.3 mg magnesium) Tablet 400 mg PO DAILY 30 Days Qty: 30 RF: 0 Continued clonazepam 0.5 mg Tablet 0.5 mg PO BID RF: 0 levothyroxine 25 mcg Tablet 25 mcg PO DAILY RF: 0 levothyroxine 200 mcg Tablet 200 mcg PO DAILY RF: 0 metoprolol tartrate 25 mg Tablet 50 mg PO BID RF: 0 nortriptyline [Pamelor] 50 mg Capsule 50 mg PO HS RF: 0 omeprazole 20 mg Capsule,Delayed Release(Dr/Ec) 20 mg PO HS RF: 0 ropinirole 1 mg Tablet 1 mg PO HS RF: 0 liraglutide 3 mg/0.5 mL (18 mg/3 mL) Pen Injector 1.8 mg SUBCUT DAILY RF: 0 lisinopril 2.5 mg tablet 2.5 mg PO DAILY RF: 0 Novolog Flexpen U-100 Insulin 100 unit/mL insulin pen 1 sliding scale dose subcut AC RF: 0 duloxetine 30 mg capsule,delayed release(DR/EC) 30 mg PO HS RF: 0 Tresiba FlexTouch U-200 200 unit/mL (3 mL) insulin pen 160 units subcut HS RF: 0 cyclobenzaprine 10 mg Tablet 10 mg PO HS PRN (Reason: Muscle Spasm) RF: 0 ergocalciferol (vitamin D2) [Vitamin D2] 50,000 unit Capsule 50,000 unit PO WK RF: 0 Discontinued gabapentin 300 mg Capsule 300 mg PO TID RF: 0 furosemide 80 mg Tablet 80 mg PO DAILY RF: 0 magnesium chloride [Mag 64] 64 mg Tablet,Delayed Release (Dr/Ec) 64 mg PO BID RF: 0 Stand-Alone Forms: [facility] Discharge Orders: Discharge Order (Routine); Ordered 12/14/18 Ordered By: Uriel Selby Admission Data Admit Date/Time: 12/08/18 19:09 Attending Provider: Uriel Selby Admit Provider: Mignon Crooks Primary Care Provider: Kevin Whiteside Other Providers: Isai Saeed ; Mignon Crooks ; Apple Jose Service: Telemetry
== END 2018-12-14 15:11 | disposition home or self-care (01) | DRG 291 ==
LOC: ED 16:32 → SUATTDRO 19:09 → 2N 19:09

== ENCOUNTER 2018-12-23 06:08 | Inpatient (IN) ==
[2018-12-23] MEDS ORDERED: ACETAMINOPHEN 1,000 MG/100 ML VIAL IV STA (06:38)
[2018-12-23 07:17] LABS: Basophils # (auto) 0.03 K/uL (0-0.2); Basophils % (auto) 0.3 %; Eosinophils # (auto) 0.13 K/uL (0-0.5); Eosinophils % (auto) 1.3 %; Hematocrit (blood only) 41.1 % (37-47); Hemoglobin 13.2 g/dL (12.0-16.0); Immature Granulocytes # (auto) 0.05 K/uL (0.00-0.02); Immature Granulocytes % (auto) 0.5 %; Lymphocytes % (auto) 17.1 %; Mean Corpuscular Hgb Conc 32.1 g/dL (32-36); Mean Corpuscular Volume 91.3 fL (80-100); Monocytes # (auto) 0.61 K/uL (0.11-0.59); Monocytes % (auto) 6.1 %; Neutrophils % (auto) 74.7 %; Platelet Count 235 K/uL (130-400); RDW Coefficient of Variation 15.5 % (11.5-14.5); RDW Standard Deviation 51.9 fL (36.4-46.3); White Blood Count 9.92 K/uL (4.8-10.8)
[2018-12-23 07:21] LABS: iSTAT Creatinine 2.3 mg/dl (0.6-1.3); iSTAT Hemoglobin 14.3 g/dl (12.0-16.0); iSTAT Ionized Calcium 1.02 mmol/l (1.12-1.32)
--- NOTE | 2018-12-23 07:28 | XRay Report ---
XR chest 1V portable CLINICAL HISTORY: Chest Pain COMPARISON STUDY: Chest radiograph December 08, 2018. FINDINGS: There is no pneumothorax or pleural effusion. Mild cardiomegaly is unchanged. Mild intersti tial thickening is unchanged. There is no lobar consolidation. IMPRESSION: No change in appearance of the chest with mild cardiomegaly and mild interstitial thicke kayla. Electronically signed by: David Lugo M.D. 12/23/2018 7:26 AM
[2018-12-23] MEDS ORDERED: SODIUM CHLORIDE 0.9% 500 ML IV ONE (07:33)
[2018-12-23 07:41] LABS: Appearance Urine Cloudy (Clear); Bacteria Urine Automated 2+ (Negative); Bilirubin Urine Negative (Negative); Blood Urine Negative (Negative); Color Urine Yellow; Epithelial Cell Urine Auto >30 /lpf (0-5); Glucose Urine UA Negative (Negative); Ketones Urine Negative (Negative); Leukocyte Esterase Urine 2+ (Negative); Nitrite Urine Negative (Negative); Protein Urine Negative (Negative); RBC Urine Automated 0-4 /hpf (0-4); Specific Gravity Urine 1.016 (1.000-1.030); Urobilinogen Urine Negative (Negative); WBC Urine Automated >30 /hpf (0-5)
[2018-12-23] MEDS: TRAMADOL HCL 50 MG TABLET PO PRN ×2 (07:45→16:16)
[2018-12-23 07:50] LABS: Alanine Aminotransferase 31 U/L (12-78); Albumin Level 3.1 gm/dl (3.4-5.0); Aspartate Aminotransferase 33 U/L (15-37); BUN Creatinine Ratio 19.4 (10-20); Blood Urea Nitrogen 49 mg/dl (7-18); Calcium 8.3 mg/dl (8.5-10.1); Carbon Dioxide 27 mmol/L (21-32); Chloride 95 mmol/L (98-107); Creatinine Clr Calc Pharmacy 34.6 ml/min; Est GFR (African American) 22.7; Est GFR (Non-African American) 19.6; Glucose 233 mg/dl (70-99); Potassium 3.9 mmol/L (3.5-5.1); Sodium 132 mmol/L (136-145)
[2018-12-23] MEDS ORDERED: SODIUM CHLORIDE 0.9% 1000ML 500 ML IV ONE ×4 (07:51→13:18)
[2018-12-23 07:55] LABS: Albumin Globulin Ratio 0.6 (0.9-2); Alkaline Phosphatase 68 U/L (45-117); Bilirubin,Total 0.5 mg/dl (0.2-1); Creatine Kinase 147 U/L (26-192); Creatine Kinase MB 1.4 ng/ml (0.5-3.6); NT Pro B Type Natriuretic Pept 117 pg/ml (0-900); Total Protein 8.1 gm/dl (6.4-8.2); Troponin I < 0.015 ng/ml (0-0.045)
[2018-12-23] MEDS ORDERED: LEVALBUTEROL 1.25MG/0.5ML NEB NEB STA (07:59)
--- NOTE | 2018-12-23 08:21 | CT Scan Report ---
CT OF THE ABDOMEN AND PELVIS WITHOUT CONTRAST CLINICAL HISTORY: Right lower quadrant abdominal pain. COMPARISON STUDY: CT of the abdomen and pelvis May 21, 2017. Ultrasound June 06, 2018. TECHNIQUE: Axial images of the abdomen and pelvis were obtained without IV contrast. Images were revi ewed in the axial, sagittal, and coronal planes. Automated exposure control was utilized for the kiesha dy. A dose lowering technique was utilized adhering to the principles of ALARA. FINDINGS: Hepatosplenomegaly is unchanged. Fatty infiltration within the medial segment of the left h epatic lobe is noted. No pneumatosis, free air or portal venous gas is present. Duodenal diverticula are again noted. Right collecting system dilatation is unchanged. IVC filters in place. Multiple fat and bowel containing ventral hernias are noted without evidence for a bowel obstruction. The appendix is normal. There is no ascites. There is no lymphadenopathy. There are no suspicious skeletal lesion s. There is extensive plaque of the abdominal aorta. No renal, ureteral or bladder calculi are presen t. IMPRESSION: 1. No urinary calculi. 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 2. Multiple fat and bowel containing ventral hernias. No bowel obstruction. 3. Normal appendix. 4. Stable hepatosplenomegaly. Electronically signed by: David Lugo M.D. 12/23/2018 8:19 AM
[2018-12-23] MEDS ORDERED: CYCLOBENZAPRINE HCL 10 MG TAB PO PRN (09:27)
--- NOTE | 2018-12-23 09:37 | History & Physical Report ---
Date of Service December 23, 2018 Assessment & Plan (1) Abdominal pain: (2) Fever: Fever and abdominal pain reported for the past couple of days. She is afebrile on arrival to the ER and in her abdominal pain is been intermittent. She denies any jaun UTI symptoms however urine reveals some bacteria. This is not a clean sample however. Will continue Rocephin pending urine culture results. Will order blood cultures in setting of recent fever and malaise. CT scan of the abdomen and pelvis today reveals no acute intra-abdominal pathology. (3) Acute on chronic kidney failure: Worsening creatinine likely secondary to increased Lasix given at d ischarge approximately 2 weeks ago. She was taking 80 mg daily this was increased to 80 mg twice daily. She was also put on spironolactone. Holding Lasix at this time trend BMP in a.m. Will review notes from nephrology's visit last admission and consider consulting them if not improved tomorrow. (4) Type 2 diabetes, uncontrolled, with neuropathy: Hold home medications. Continue NovoLog/Lantus while hospitalized. Appreciate pharmacy assistance with glycemic management. Recent A1c was greater than 9 at last visit. (5) Hypoxia: She uses nocturnal oxygen but was hypoxic in the ER with improvement after nasal cannula applied. Currently denies any shortness of breath. (6) ELISSA on CPAP: Okay to use home CPAP. (7) Morbid obesity: (8) Hypothyroidism: Continue daily Synthroid replacement per home regimen. (9) RLS (restless legs syndrome): Continue ropinirole per home regimen. (10) Fibromyalgia: Recent decrease in Neurontin to 100 mg p.o. 3 times daily. However, she is having significant pain with this reduction and feels she was better on the 300 mg p.o. 3 times daily. Will revert back to the 300 mg p.o. 3 times daily dosing now. Ultram as needed breakthrough pain. (11) DVT prophylaxis: Type I allergy to heparin which is contraindicated. Full code Disposition-to telemetry Shantell Eli DO [facility] Hospitalist History of Present Illness Chief Complaint: Left lower quadrant pain Primary Care Provider: Kevin Whiteside DO The patient is a 63-year-old female who presents to the emergency room with reports of left lower quadrant pain associated with nausea, vomiting, headaches. This is been going on intermittently over the past 3 days. The patient also reports diffuse body aches and has a diagnosis of fibromyalgia. She has recently decreased her gabapentin dosing from 300 mg p.o. 3 times daily to 100 mg p.o. 3 times daily on recent discharge from the hospital approximately 2 weeks ago. She has a significant history of diverticulitis and was concerned about this. On arrival to the ER she was afebrile however, her blood pressure went from 117/67-70 9/61. She was bolused approximately 2 L while in the ER with improvement of blood pressure. She was also found to be 84% on room air and was placed on 4 L nasal cannula with improvement to 96% oxygen saturation. Lab work revealed a creatinine of 2.5 to up from discharge which was 1.76 on 12/14. Lasix had been increased at time of discharge from 80 mg daily to 80 mg twice daily. Chest x-ray revealed no change in appearance of the chest with mild cardiomegaly and mild interstitial thickening present. She does not have an elevation in white blood cell count. Allergies Allergy/AdvReac Type Severity Reaction Status Date / Time tetanus toxoid, adsorbed Allergy Mild PASSED OUT Verified 12/23/18 06:29 AND GOT SICK WHEN A CHILD codeine Allergy Unknown Hallucinati Verified 12/23/18 06:29 ons heparin Allergy Unknown HIT; FLUID Verified 12/23/18 06:29 IN LUNGS morphine Allergy Unknown VIOLENT Verified 12/23/18 06:29 REACTION-"ALMOST " SWELLING Home Medications Home Medications Medication Instructions Recorded Confirmed Type clonazepam 0.5 mg PO BID 06/09/18 12/23/18 History levothyroxine 25 mcg PO DAILY 06/09/18 12/23/18 History levothyroxine 200 mcg PO DAILY 06/09/18 12/23/18 History metoprolol tartrate 50 mg PO BID 06/09/18 12/23/18 History nortriptyline [Pamelor] 50 mg PO HS 06/09/18 12/23/18 History omeprazole 20 mg PO HS 06/09/18 12/23/18 History ropinirole 1 mg PO HS 06/09/18 12/23/18 History liraglutide 1.8 mg SUBCUT DAILY 06/10/18 12/23/18 History Novolog Flexpen U-100 Insulin 1 sliding scale dose SUBCUT AC 12/08/18 12/23/18 History Tresiba FlexTouch U-200 160 units SUBCUT HS 12/08/18 12/23/18 History cyclobenzaprine 10 mg PO HS PRN 12/08/18 12/23/18 History ergocalciferol (vitamin D2) 50,000 unit PO WK 12/08/18 12/23/18 History [Vitamin D2] lisinopril 2.5 mg PO DAILY 12/08/18 12/23/18 History gabapentin 100 mg PO TID 30 Days #90 cap 12/14/18 12/23/18 Rx magnesium oxide 400 mg PO DAILY 30 Days #30 tab 12/14/18 12/23/18 Rx spironolactone 12.5 mg PO DAILY 30 Days #15 tab 12/14/18 12/23/18 Rx duloxetine 60 mg PO DAILY 12/23/18 12/23/18 History furosemide 80 mg PO BID 12/23/18 12/23/18 History Past Med/Surg History Medical History CKD (chronic kidney disease), stage III (Chronic) History of thyroidectomy, total (Resolved) ELISSA on CPAP (Chronic) HTN (hypertension) (Chronic) HLD (hyperlipidemia) (Chronic) Morbid obesity (Chronic) 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) Depression with anxiety (Chronic) Hypothyroidism (Chronic) History of pulmonary embolism (Chronic) s/p zoraida filter GERD (gastroesophageal reflux disease) (Chronic) RLS (restless legs syndrome) (Chronic) History of DVT (deep vein thrombosis) (Resolved) Presence of IVC filter (Chronic) Fibromyalgia (Chronic) Diabetes (Chronic) Sepsis (Resolved) Surgical History History of cholecystectomy (Resolved) History of total right knee replacement (Resolved) History of tracheostomy (Resolved) 2010, secondary to acute resp failure secondary to pneumonia[place] [facility] [place] of colon resection (Resolved) secondary to R colon perforation, resected treated with colostomy and eventual reversal in 2008, Dr. 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 Physical Exam Vital Signs (Past 24 Hours): Last Vital Signs Temp 37.2 C 12/23/18 06:14 Pulse 92 H 12/23/18 08:36 Resp 16 12/23/18 08:36 BP 97/66 L 12/23/18 08:36 Pulse Ox 98 12/23/18 08:36 CONSTITUTIONAL: obese, vitals as above, generally ill-appearing EYES: normal conjuctivae, no scleral icterus ENT: MMM RESPIRATORY: clear to auscultation bilaterally, no crackles, rales or wheezes, normal respiratory effort CARDIOVASCULAR: regular rate and rhythm, S1 and 2 heard without murmurs, gallops or rubs, no JVD, no peripheral edema GASTROINTESTINAL: normal bowel sounds, protuberant abdomen, soft, nontender, nondistended MUSCULOSKELETAL: strength 5/5 throughout, head is normocephalic and atraumatic, neck supple, multiple tenderpoints on chest wall, all down her back, legs and arms. SKIN: warm and dry NEUROLOGIC: CN 2-12 grossly intact, no sensory deficit, normal cognition, normal speech PSYCHIATRIC: alert cooperative and oriented to person, place and time. Results & Data Laboratory Results Short CBC 12/23/18 Range/Units 07:00 WBC 9.92 (4.8-10.8) K/uL Hgb 13.2 (12.0-16.0) g/dL Hct 41.1 (37-47) % Plt Count 235 (130-400) K/uL BMP 12/23/18 07:00 Sodium 132 L Potassium 3.9 Chloride 95 L Carbon Dioxide 27 BUN 49 H Creatinine 2.52 H Glucose 233 H Calcium 8.3 L Cardiac Enzymes 12/23/18 Range/Units 07:00 Total Creatine Kinase 147 (26-192) U/L CK-MB (CK-2) 1.4 (0.5-3.6) ng/ml Troponin I < 0.015 (0-0.045) ng/ml Liver Function 12/23/18 Range/Units 07:00 Total Bilirubin 0.5 (0.2-1) mg/dl AST 33 (15-37) U/L ALT 31 (12-78) U/L Alkaline Phosphatase 68 (45-117) U/L Albumin 3.1 L (3.4-5.0) gm/dl Urine 12/23/18 Range/Units 07:00 Urine Color Yellow Urine Appearance Cloudy H (Clear) Urine pH 5.0 (4.5-7.5) Ur Specific [place] 1.016 (1.000-1.030) Urine Protein Negative (Negative) Urine Glucose (UA) Negative (Negative) Diagnostic Findings CT Abdomen/Pelvis: 1. No urinary calculi. 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 2. Multiple fat and bowel containing ventral hernias. No bowel obstruction. 3. Normal appendix. 4. Stable hepatosplenomegaly XR chest 1V portable CLINICAL HISTORY: Chest Pain COMPARISON STUDY: Chest radiograph December 08, 2018. FINDINGS: There is no pneumothorax or pleural effusion. Mild cardiomegaly is unchanged. Mild interstitial thickening is unchanged. There is no lobar consolidation. IMPRESSION: No change in appearance of the chest with mild cardiomegaly and mild interstitial thickening. Medications Administered Current Inpatient Medications Acetaminophen (Tylenol) 650 mg PO Q4H PRN PRN Reason: Pain or Fever Stop: 01/22/19 14:55 Clonazepam (Klonopin) 0.5 mg PO BID ROBERT Stop: 01/22/19 20:59 Cyclobenzaprine HCl (Flexeril) 10 mg PO HS PRN PRN Reason: Muscle Spasm Stop: 01/22/19 09:26 Dextrose (Dextrose 50%) 25 - 50 ml IV UD PRN; Protocol PRN Reason: Hypoglycemia Protocol Stop: 01/22/19 14:55 Duloxetine HCl (Cymbalta) 60 mg PO DAILY ROBERT Stop: 01/23/19 08:59 Gabapentin (Neurontin) 300 mg PO TID ROBERT Stop: 01/22/19 15:22 Last Admin: 12/23/18 15:51 Dose: 300 mg Documented by: Glucagon (Glucagen) 1 mg SQ UD PRN; Protocol PRN Reason: Hypoglycemia Protocol Stop: 01/22/19 14:55 Glucose (Glucose 40%) 15 - 30 gm PO UD PRN; Protocol PRN Reason: Hypoglycemia Protocol Stop: 01/22/19 14:55 Glucose (Dex4 Glucose) 4 - 8 tabs PO UD PRN; Protocol PRN Reason: Hypoglycemia Protocol Stop: 01/22/19 14:55 Levothyroxine Sodium (Synthroid) 200 mcg PO DAILYBB ROBERT Stop: 01/23/19 06:29 Levothyroxine Sodium (Synthroid) 25 mcg PO DAILYBB ROBERT Stop: 01/23/19 06:29 Magnesium Oxide (Mag-Ox) 400 mg PO DAILY ROBERT Stop: 01/23/19 08:59 Metoprolol Tartrate (Lopressor) 50 mg PO BID ROBERT Stop: 01/22/19 20:59 Miscellaneous (Carbohydrates For Hypoglycemia) 15 - 30 gm PO UD PRN PRN Reason: Hypoglycemia Treatment Stop: 01/22/19 14:55 Nortriptyline HCl (Pamelor) 50 mg PO HS ROBERT Stop: 01/22/19 20:59 Ondansetron HCl (Zofran) 4 mg IV Q6H PRN PRN Reason: Nausea Stop: 01/22/19 14:55 Pantoprazole Sodium (Protonix) 40 mg PO HS ROBERT; Protocol Stop: 01/22/19 20:59 Polyethylene Glycol (Miralax Powder Packet) 17 gm PO DAILY PRN PRN Reason: Constipation Stop: 01/22/19 14:55 Ropinirole HCl (Requip) 1 mg PO HS [facility] Stop: 01/22/19 20:59 Spironolactone (Aldactone) 12.5 mg PO DAILY ROBERT Stop: 01/23/19 08:59 Tramadol HCl (Ultram) 50 mg PO Q6H PRN PRN Reason: Pain Stop: 01/22/19 14:44 Last Admin: 12/23/18 16:16 Dose: 50 mg Documented by: Code Status & VTE Plan Code Status Full Code VTE Prophylaxis Plan VTE Prophylaxis will be ordered: Yes Critical Care Time Critical Care Time: No (1) Acute on chronic kidney failure Acute renal failure type: unspecified Chronic kidney disease stage: unspecified stage Qualified Code(s): N17.9 - Acute kidney failure, unspecified; N18.9 - Chronic kidney disease, unspecified
[2018-12-23] MEDS ORDERED: GABAPENTIN 100 MG CAP PO SCH (14:00)
--- NOTE | 2018-12-23 14:38 | Emergency Department Note ---
Entered by Little Richards acting as a scribe for History of Present Illness General Chief complaint: Fever Stated complaint: FEVER FOR 3 DAYS,CHF,ABD PAIN Time Seen by Provider: 12/23/18 06:31 Source: patient History of Present Illness Onset (ago): day(s) 3 Location: head Pain Consistency: + other (waxing and waning) Maximum Pain Intensity: 5 Quality: + other (fever) Associated symptoms: + headaches, + nausea/vomiting (mild nausea) and + other (abdominal pain in right pelvic/groin area, diarrhea) The patient is a 63 year old female who presents to the Emergency Room with complaints of a fever that has waxed and waned over the past three days. The patient reports associated headaches and diffuse body aches. She notes she has had abdominal pain in her right groin and pelvic area and that she has a history of diverticulitis. She states she had part of her colon removed. She reports mild nausea and diarrhea but denies any vomiting. The patient notes she has a history of CHF and that she has not been able to drink anything. She states she is unsure if she is dehydrated. She notes that she has received the flu shot this season. The patient denies that she normally uses oxygen at home. Home Medications Home Medications Medication Instructions Recorded Confirmed Type clonazepam 0.5 mg PO BID 06/09/18 12/23/18 History levothyroxine 25 mcg PO DAILY 06/09/18 12/23/18 History levothyroxine 200 mcg PO DAILY 06/09/18 12/23/18 History metoprolol tartrate 50 mg PO BID 06/09/18 12/23/18 History nortriptyline [Pamelor] 50 mg PO HS 06/09/18 12/23/18 History omeprazole 20 mg PO HS 06/09/18 12/23/18 History ropinirole 1 mg PO HS 06/09/18 12/23/18 History liraglutide 1.8 mg SUBCUT DAILY 06/10/18 12/23/18 History Novolog Flexpen U-100 Insulin 1 sliding scale dose SUBCUT AC 12/08/18 12/23/18 History Tresiba FlexTouch U-200 160 units SUBCUT HS 12/08/18 12/23/18 History cyclobenzaprine 10 mg PO HS PRN 12/08/18 12/23/18 History ergocalciferol (vitamin D2) 50,000 unit PO WK 12/08/18 12/23/18 History [Vitamin D2] lisinopril 2.5 mg PO DAILY 12/08/18 12/23/18 History gabapentin 100 mg PO TID 30 Days #90 cap 12/14/18 12/23/18 Rx magnesium oxide 400 mg PO DAILY 30 Days #30 tab 12/14/18 12/23/18 Rx spironolactone 12.5 mg PO DAILY 30 Days #15 tab 12/14/18 12/23/18 Rx duloxetine 60 mg PO DAILY 12/23/18 12/23/18 History furosemide 80 mg PO BID 12/23/18 12/23/18 History Allergies Allergy/AdvReac Type Severity Reaction Status Date / Time tetanus toxoid, adsorbed Allergy Mild PASSED OUT Verified 12/23/18 06:29 AND GOT SICK WHEN A CHILD codeine Allergy Unknown Hallucinati Verified 12/23/18 06:29 ons heparin Allergy Unknown HIT; FLUID Verified 12/23/18 06:29 IN LUNGS morphine Allergy Unknown VIOLENT Verified 12/23/18 06:29 REACTION-"ALMOST " SWELLING Past Med/Surg History Medical History CKD (chronic kidney disease), stage III (Chronic) History of thyroidectomy, total (Resolved) ELISSA on CPAP (Chronic) HTN (hypertension) (Chronic) HLD (hyperlipidemia) (Chronic) Morbid obesity (Chronic) 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) Depression with anxiety (Chronic) Hypothyroidism (Chronic) History of pulmonary embolism (Chronic) s/p zoraida filter GERD (gastroesophageal reflux disease) (Chronic) RLS (restless legs syndrome) (Chronic) History of DVT (deep vein thrombosis) (Resolved) Presence of IVC filter (Chronic) Fibromyalgia (Chronic) Diabetes (Chronic) Sepsis (Resolved) Surgical History History of cholecystectomy (Resolved) History of total right knee replacement (Resolved) History of tracheostomy (Resolved) 2010, secondary to acute resp failure secondary to pneumonia, transferred to [facility] History of colon resection (Resolved) secondary to R colon perforation, resected treated with colostomy and eventual reversal in 2008, Dr. Lerma Family History Father , age 74 Lung cancer Mother , age 45 Cirrhosis Social History Preferred Language: Azeri Communication Ability: Effective Armature Winder Required: No Beliefs That Will Affect Care: None Current Living Situation: Alone Other Information That Helps Us Care for You: No Feels Safe at Home: Yes Safety Concerns: Feels Safe At This Time Smoking Status: Former smoker Hx Alcohol Use: No Hx Substance Use: No Review of Systems See HPI for pertinent positives & negatives. and A total of 10 systems reviewed and were otherwise negative Physical Exam Vital Signs Vital Signs - 24 hr 12/23/18 06:14 12/23/18 07:34 12/23/18 07:38 Temperature 37.2 C Temperature Source Oral Sepsis Recent Fever Within 48 Hours No Sepsis Action Taken by Nursing No Action Required Pulse Rate 122 H Pulse Rate [Apical] 95 H Pulse Rate from SpO2 Sensor Pulse Rhythm Regular Pulse Strength Normal Respiratory Rate 22 22 Respiratory Effort / Characteristics Non-Labored Spontaneous Respiratory Depth Normal Respiratory Pattern Regular Blood Pressure 117/67 Blood Pressure [Right Arm] 79/61 L Blood Pressure Mean 83 Blood Pressure Mean [Right Arm] 67 Blood Pressure Position Sitting Pulse Oximetry 93 84 L 96 Oxygen Delivery Method Room Air Room Air Nasal Cannula Oxygen Flow Rate 4 12/23/18 07:43 12/23/18 07:53 12/23/18 08:11 Temperature 37.3 C Temperature Source Sepsis Recent Fever Within 48 Hours Sepsis Action Taken by Nursing Pulse Rate 94 H 94 H Pulse Rate [Apical] Pulse Rate from SpO2 Sensor 95 H 100 H 92 H Pulse Rhythm Pulse Strength Respiratory Rate 23 24 Respiratory Effort / Characteristics Respiratory Depth Respiratory Pattern Blood Pressure 77/62 L 90/60 L 102/64 Blood Pressure [Right Arm] Blood Pressure Mean 67 70 76 Blood Pressure Mean [Right Arm] Blood Pressure Position Pulse Oximetry 96 93 94 Oxygen Delivery Method Oxygen Flow Rate 12/23/18 08:24 12/23/18 08:36 12/23/18 09:01 Temperature Temperature Source Sepsis Recent Fever Within 48 Hours Sepsis Action Taken by Nursing Pulse Rate 92 H 92 H Pulse Rate [Apical] 90 Pulse Rate from SpO2 Sensor 92 H 93 H Pulse Rhythm Pulse Strength Respiratory Rate 17 16 18 Respiratory Effort / Characteristics Non-Labored Spontaneous Respiratory Depth Respiratory Pattern Blood Pressure 97/66 L 92/58 L Blood Pressure [Right Arm] Blood Pressure Mean 76 69 Blood Pressure Mean [Right Arm] Blood Pressure Position Pulse Oximetry 97 98 90 Oxygen Delivery Method Nasal Cannula Oxygen Flow Rate 4 12/23/18 09:20 12/23/18 09:41 12/23/18 09:42 Temperature Temperature Source Sepsis Recent Fever Within 48 Hours Sepsis Action Taken by Nursing Pulse Rate 92 H 91 H Pulse Rate [Apical] Pulse Rate from SpO2 Sensor 92 H 91 H Pulse Rhythm Pulse Strength Respiratory Rate 18 17 Respiratory Effort / Characteristics Spontaneous SOB on Exertion Respiratory Depth Normal Respiratory Pattern Regular Blood Pressure 89/58 L 84/58 L Blood Pressure [Right Arm] Blood Pressure Mean 68 66 Blood Pressure Mean [Right Arm] Blood Pressure Position Pulse Oximetry 96 96 Oxygen Delivery Method Nasal Cannula Oxygen Flow Rate 4 12/23/18 09:52 12/23/18 10:01 12/23/18 10:05 Temperature Temperature Source Sepsis Recent Fever Within 48 Hours Sepsis Action Taken by Nursing Pulse Rate 91 H 92 H 94 H Pulse Rate [Apical] Pulse Rate from SpO2 Sensor 91 H 91 H 94 H Pulse Rhythm Pulse Strength Respiratory Rate 20 20 18 Respiratory Effort / Characteristics Respiratory Depth Respiratory Pattern Blood Pressure 81/65 L 76/62 L 94/70 L Blood Pressure [Right Arm] Blood Pressure Mean 70 66 78 Blood Pressure Mean [Right Arm] Blood Pressure Position Pulse Oximetry 94 95 94 Oxygen Delivery Method Oxygen Flow Rate 12/23/18 10:31 12/23/18 11:01 12/23/18 11:13 Temperature Temperature Source Sepsis Recent Fever Within 48 Hours Sepsis Action Taken by Nursing Pulse Rate 91 H 96 H 100 H Pulse Rate [Apical] Pulse Rate from SpO2 Sensor 91 H 94 H 100 H Pulse Rhythm Pulse Strength Respiratory Rate 17 14 20 Respiratory Effort / Characteristics Respiratory Depth Respiratory Pattern Blood Pressure 95/63 L 85/57 L 74/54 L Blood Pressure [Right Arm] Blood Pressure Mean 73 66 60 Blood Pressure Mean [Right Arm] Blood Pressure Position Pulse Oximetry 95 94 95 Oxygen Delivery Method Oxygen Flow Rate 12/23/18 11:15 12/23/18 11:31 12/23/18 11:41 Temperature Temperature Source Sepsis Recent Fever Within 48 Hours Sepsis Action Taken by Nursing Pulse Rate 92 H 90 88 Pulse Rate [Apical] Pulse Rate from SpO2 Sensor 92 H 90 88 Pulse Rhythm Pulse Strength Respiratory Rate 18 19 16 Respiratory Effort / Characteristics Respiratory Depth Respiratory Pattern Blood Pressure 92/67 L 111/64 95/62 L Blood Pressure [Right Arm] Blood Pressure Mean 75 79 73 Blood Pressure Mean [Right Arm] Blood Pressure Position Pulse Oximetry 96 98 94 Oxygen Delivery Method Oxygen Flow Rate 12/23/18 11:48 12/23/18 11:59 12/23/18 12:01 Temperature Temperature Source Sepsis Recent Fever Within 48 Hours Sepsis Action Taken by Nursing Pulse Rate 88 88 Pulse Rate [Apical] Pulse Rate from SpO2 Sensor 89 88 88 Pulse Rhythm Pulse Strength Respiratory Rate 17 18 Respiratory Effort / Characteristics Respiratory Depth Respiratory Pattern Blood Pressure 79/62 L 86/68 L 82/56 L Blood Pressure [Right Arm] Blood Pressure Mean 67 74 64 Blood Pressure Mean [Right Arm] Blood Pressure Position Pulse Oximetry 98 95 95 Oxygen Delivery Method Oxygen Flow Rate 12/23/18 12:17 12/23/18 12:31 12/23/18 12:46 Temperature Temperature Source Sepsis Recent Fever Within 48 Hours Sepsis Action Taken by Nursing Pulse Rate 92 H 103 H 98 H Pulse Rate [Apical] Pulse Rate from SpO2 Sensor 93 H Pulse Rhythm Pulse Strength Respiratory Rate 20 24 21 Respiratory Effort / Characteristics Respiratory Depth Respiratory Pattern Blood Pressure 100/75 84/56 L 95/67 L Blood Pressure [Right Arm] Blood Pressure Mean 83 65 76 Blood Pressure Mean [Right Arm] Blood Pressure Position Pulse Oximetry 96 Oxygen Delivery Method Oxygen Flow Rate 12/23/18 13:01 Temperature Temperature Source Sepsis Recent Fever Within 48 Hours Sepsis Action Taken by Nursing Pulse Rate 94 H Pulse Rate [Apical] Pulse Rate from SpO2 Sensor Pulse Rhythm Pulse Strength Respiratory Rate 23 Respiratory Effort / Characteristics Respiratory Depth Respiratory Pattern Blood Pressure 96/68 L Blood Pressure [Right Arm] Blood Pressure Mean 77 Blood Pressure Mean [Right Arm] Blood Pressure Position Pulse Oximetry Oxygen Delivery Method Oxygen Flow Rate GENERAL: Patient is a healthy-appearing well-nourished HEAD: Normocephalic atraumatic EYES: Ocular movements intact pupils equal and react to light OROPHARYNX mucous membranes are moist no exudates present no erythema or edema present NECK: Supple no nuchal rigidity CHEST: Good equal expansion LUNGS: Clear and equal to auscultation CARDIAC: Normal S1 and S2 ABDOMEN: Soft nontender no guarding BACK: No CVA tenderness EXTREMITIES: No pain upon palpation normal muscle strength in all groups no clubbing cyanosis or edema NEURO: Patient is following commands is answering questions appropriately. Alert and oriented x3 Cranial Nerves 2-12 grossly intact Course 0634: Past medical records reviewed. The patient was evaluated in room C6, and a complete history and physical examination were performed. 0836: I updated the patient on her current lab and imaging results. 0856: I reviewed the patient's case with Nga Crystal. Dr. Eli will evaluate the patient for further management. 0900 : I discussed the results and findings with the patient. She verbalized agreement of the treatment plan. The patient will be evaluated for further management and care. Consultations Consultation #1: [id number]: I reviewed the patient's case with Nga Crystal. She will evaluate the patient for further management. Time: 08:56 Administered Medications Discontinued Medications Acetaminophen (Ofirmev) 1,000 mg in 100 mls @ 400 mls/hr IV NOW STA Stop: 12/23/18 06:52 Last Infusion: 12/23/18 07:29 Dose: 0 mls/hr Documented by: [id number] Admin: 12/23/18 07:12 Dose: 400 mls/hr Documented by: [id number] Sodium Chloride (Nss) 500 mls @ 999 mls/hr IV .Q31M ONE Stop: 12/23/18 08:03 Last Infusion: 12/23/18 08:14 Dose: 0 mls/hr Documented by: [id number] Admin: 12/23/18 07:40 Dose: 999 mls/hr Documented by: [id number] Sodium Chloride (Nss 1000ml) 500 mls @ 999 mls/hr IV .Q31M ONE Stop: 12/23/18 08:21 Last Infusion: 12/23/18 08:45 Dose: 0 mls/hr Documented by: [id number] Admin: 12/23/18 08:14 Dose: 999 mls/hr Documented by: [id number] Sodium Chloride (Nss 1000ml) 500 mls @ 999 mls/hr IV .Q31M ONE Stop: 12/23/18 11:00 Last Infusion: 12/23/18 11:05 Dose: 0 mls/hr Documented by: [id number] Admin: 12/23/18 10:34 Dose: 999 mls/hr Documented by: [id number] Sodium Chloride (Nss 1000ml) 500 mls @ 999 mls/hr IV .Q31M ONE Stop: 12/23/18 11:46 Last Infusion: 12/23/18 11:46 Dose: 0 mls/hr Documented by: [id number] Admin: 12/23/18 11:15 Dose: 999 mls/hr Documented by: [id number] Sodium Chloride (Nss 1000ml) 500 mls @ 999 mls/hr IV .Q31M ONE Stop: 12/23/18 13:48 Last Infusion: 12/23/18 14:05 Dose: 0 mls/hr Documented by: [id number] Admin: 12/23/18 13:19 Dose: 999 mls/hr Documented by: [id number] Levalbuterol HCl (Xopenex 1.25mg/0.5ml Neb) 1.25 mg NEB NOW STA Stop: 12/23/18 08:00 Last Admin: 12/23/18 08:22 Dose: 1.25 mg Documented by: [id number] Medical Decision Making Differential Diagnosis Differential diagnosis: Etiologies such as biliary colic, cholecystitis, hepatitis, perihepatitis, pancreatitis, cardiac disease, pancreatitis, gastritis, peptic ulcer disease, appendicitis, ovarian cyst, ovarian torsion, ectopic , pelvic inflammatory disease, cystitis, diverticulitis, mesenteric ischemia, inflammatory bowel disease, ileus, bowel obstruction, aortic pathology, shingles, as well as others were considered. Medical Records Attestation: I reviewed the patient's medical records. Home Medications Current Medication List: was personally reviewed by me Laboratory Data Attestation: I reviewed the patient's lab results. Result diagrams: 12/23/18 07:00 12/23/18 07:00 Lab Results 12/23/18 12/23/18 12/23/18 Range/Units 06:50 07:00 07:00 WBC 9.92 (4.8-10.8) K/uL RBC 4.50 (4.2-5.4) M/uL Hgb 13.2 (12.0-16.0) g/dL POC Hgb (12.0-16.0) g/dl Hct 41.1 (37-47) % POC Hct (37-47) % MCV 91.3 (80-100) fL MCH 29.3 (25-34) pg MCHC 32.1 (32-36) g/dL RDW Std Deviation 51.9 H (36.4-46.3) fL RDW Coeff of Adolfo 15.5 H (11.5-14.5) % Plt Count 235 (130-400) K/uL MPV 10.0 (7.4-10.4) fL Immature Gran % (Auto) 0.5 % Neut % (Auto) 74.7 % Lymph % (Auto) 17.1 % [place] % (Auto) 6.1 % Eos % (Auto) 1.3 % Baso % (Auto) 0.3 % Immature Gran # (Auto) 0.05 H (0.00-0.02) K/uL Neut # (Auto) 7.40 H (1.4-6.5) K/uL Lymph # (Auto) 1.70 (1.2-3.4) K/uL [place] # (Auto) 0.61 H (0.11-0.59) K/uL Eos # (Auto) 0.13 (0-0.5) K/uL Baso # (Auto) 0.03 (0-0.2) K/uL POC Sodium (135-144) mEq/L Sodium 132 L (136-145) mmol/L POC Potassium (3.3-5.0) mEq/L Potassium 3.9 (3.5-5.1) mmol/L POC Chloride (101-112) mEq/L Chloride 95 L (98-107) mmol/L Carbon Dioxide 27 (21-32) mmol/L POC Total CO2 (24-31) mEq/l Anion Gap 10.0 (3-11) POC Anion Gap (16-25) mmol/L POC BUN (7-18) mg/dl BUN 49 H (7-18) mg/dl Creatinine 2.52 H (0.6-1.2) mg/dl POC Creatinine (0.6-1.3) mg/dl Est Cr Clr Drug Dosing 34.6 ml/min Est GFR ( Amer) 22.7 Est GFR (Non-Af Amer) 19.6 BUN/Creatinine Ratio 19.4 (10-20) Glucose 233 H (70-99) mg/dl POC Glucose (other) (70-99) mg/dl Calcium 8.3 L (8.5-10.1) mg/dl POC Ioniz Calcium Liat (1.12-1.32) mmol/l Total Bilirubin 0.5 (0.2-1) mg/dl AST 33 (15-37) U/L ALT 31 (12-78) U/L Alkaline Phosphatase 68 (45-117) U/L Total Creatine Kinase 147 (26-192) U/L CK-MB (CK-2) 1.4 (0.5-3.6) ng/ml CK/CKMB % Calc 1.0 (0-3.0) Troponin I < 0.015 (0-0.045) ng/ml NT-Pro-B Natriuret Pep 117 (0-900) pg/ml Total Protein 8.1 (6.4-8.2) gm/dl Albumin 3.1 L (3.4-5.0) gm/dl Globulin 5.0 H (2.5-4.0) gm/dl Albumin/Globulin Ratio 0.6 L (0.9-2) Lipase 147 (73-393) U/L Urine Color Urine Appearance (Clear) Urine pH (4.5-7.5) Ur Specific Walker (1.000-1.030) Urine Protein (Negative) Urine Glucose (UA) (Negative) Urine Ketones (Negative) Urine Blood (Negative) Urine Nitrite (Negative) Urine Bilirubin (Negative) Urine Urobilinogen (Negative) Ur Leukocyte Esterase (Negative) Urine WBC (Auto) (0-5) /hpf Urine RBC (Auto) (0-4) /hpf U Hyaline Cast (Auto) (0-5) /lpf U Epithel Cells (Auto) (0-5) /lpf Urine Bacteria (Auto) (Negative) Influenza Type A Ag Neg for Influ A (Neg) Influenza Type B Ag Neg for Influ B (Neg) 12/23/18 12/23/18 Range/Units 07:00 07:08 WBC (4.8-10.8) K/uL RBC (4.2-5.4) M/uL Hgb (12.0-16.0) g/dL POC Hgb 14.3 (12.0-16.0) g/dl Hct (37-47) % POC Hct 42 (37-47) % MCV (80-100) fL MCH (25-34) pg MCHC (32-36) g/dL RDW Std Deviation (36.4-46.3) fL RDW Coeff of Adolfo (11.5-14.5) % Plt Count (130-400) K/uL MPV (7.4-10.4) fL Immature Gran % (Auto) % Neut % (Auto) % Lymph % (Auto) % [place] % (Auto) % Eos % (Auto) % Baso % (Auto) % Immature Gran # (Auto) (0.00-0.02) K/uL Neut # (Auto) (1.4-6.5) K/uL Lymph # (Auto) (1.2-3.4) K/uL [place] # (Auto) (0.11-0.59) K/uL Eos # (Auto) (0-0.5) K/uL Baso # (Auto) (0-0.2) K/uL POC Sodium 135 (135-144) mEq/L Sodium (136-145) mmol/L POC Potassium 4.0 (3.3-5.0) mEq/L Potassium (3.5-5.1) mmol/L POC Chloride 95 L (101-112) mEq/L Chloride (98-107) mmol/L Carbon Dioxide (21-32) mmol/L POC Total CO2 26 (24-31) mEq/l Anion Gap (3-11) POC Anion Gap 18.0 (16-25) mmol/L POC BUN 43 H (7-18) mg/dl BUN (7-18) mg/dl Creatinine (0.6-1.2) mg/dl POC Creatinine 2.3 H (0.6-1.3) mg/dl Est Cr Clr Drug Dosing ml/min Est GFR ( Amer) Est GFR (Non-Af Amer) BUN/Creatinine Ratio (10-20) Glucose (70-99) mg/dl POC Glucose (other) 241 H (70-99) mg/dl Calcium (8.5-10.1) mg/dl POC Ioniz Calcium Liat 1.02 L (1.12-1.32) mmol/l Total Bilirubin (0.2-1) mg/dl AST (15-37) U/L ALT (12-78) U/L Alkaline Phosphatase (45-117) U/L Total Creatine Kinase (26-192) U/L CK-MB (CK-2) (0.5-3.6) ng/ml CK/CKMB % Calc (0-3.0) Troponin I (0-0.045) ng/ml NT-Pro-B Natriuret Pep (0-900) pg/ml Total Protein (6.4-8.2) gm/dl Albumin (3.4-5.0) gm/dl Globulin (2.5-4.0) gm/dl Albumin/Globulin Ratio (0.9-2) Lipase (73-393) U/L Urine Color Yellow Urine Appearance Cloudy H (Clear) Urine pH 5.0 (4.5-7.5) Ur Specific Walker 1.016 (1.000-1.030) Urine Protein Negative (Negative) Urine Glucose (UA) Negative (Negative) Urine Ketones Negative (Negative) Urine Blood Negative (Negative) Urine Nitrite Negative (Negative) Urine Bilirubin Negative (Negative) Urine Urobilinogen Negative (Negative) Ur Leukocyte Esterase 2+ H (Negative) Urine WBC (Auto) >30 H (0-5) /hpf Urine RBC (Auto) 0-4 (0-4) /hpf U Hyaline Cast (Auto) 1-5 (0-5) /lpf U Epithel Cells (Auto) >30 H (0-5) /lpf Urine Bacteria (Auto) 2+ H (Negative) Influenza Type A Ag (Neg) Influenza Type B Ag (Neg) Imaging Data Radiologist's Impression: Radiology results as stated below per my review and the radiologist's interpretation: XR chest 1V portable CLINICAL HISTORY: Chest Pain COMPARISON STUDY: Chest radiograph December 08, 2018. FINDINGS: There is no pneumothorax or pleural effusion. Mild cardiomegaly is unchanged. Mild interstitial thickening is unchanged. There is no lobar consol idation. IMPRESSION: No change in appearance of the chest with mild cardiomegaly and mild interstitial thickening. Electronically signed by: David Luog M.D. 12/23/2018 7:[address] OF THE ABDOMEN AND PELVIS WITHOUT CONTRAST CLINICAL HISTORY: Right lower quadrant abdominal pain. COMPARISON STUDY: CT of the abdomen and pelvis May 21, 2017. Ultrasound [facility] 2017. TECHNIQUE: Axial images of the abdomen and pelvis were obtained without IV contr ast. Images were reviewed in the axial, sagittal, and coronal planes. Automated exposure control was utilized for the study. A dose lowering technique was utilized adhering to the principles of ALARA. FINDINGS: Hepatosplenomegaly is unchanged. Fatty infiltration within the medial segment of the left hepatic lobe is noted. No pneumatosis, free air or portal venous gas is present. Duodenal diverticula are again noted. Right collecting system dilatation is unchanged. IVC filters in place. Multiple fat and bowel containing ventral hernias are noted without evidence for a bowel obstruction. The appendix is normal. There is no ascites. There is no lymphadenopathy. There are no suspicious skeletal lesions. There is extensive plaque of the abdominal aorta. No renal, ureteral or bladder calculi are present. IMPRESSION: 1. No urinary calculi. 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 2. Multiple fat and bowel containing ventral hernias. No bowel obstruction. 3. Normal appendix. 4. Stable hepatosplenomegaly. Electronically signed by: David Lugo M.D. 12/23/2018 8:19 AM ECG Data Attestation: I personally reviewed and interpreted this ECG as follows: Indication: abdominal pain Rate (beats per minute): 97 Rhythm: normal sinus Findings: no PAC, no PVC, no ST depression, no ST elevation, no acute ischemic change and no ectopy Blood Pressure Blood Pressure Findings: Low blood pressure MDM Narrative This is a 63-year-old female who presents emergency department complaining of multiple complaints. She is complaining of abdominal pain along with a headache. She has no evidence of meningitis or encephalitis on physical examination. Patient does not have an elevation in her white blood cell count and is afebrile. Her creatinine is bumped. The patient has an underlying baseline of creatinine stage III however today it is 2.7. She is also hypotensive. After receiving a chest x-ray which not show any evidence of failure the patient was given multiple normal saline boluses x3. Due to the patient's Flag[place] kidney function I did discuss the case with the hospitalist service who agreed to meet the patient. Patient was in agreement with the treatment plan. Impression & Plan Acute on chronic kidney failure Discharge Plan Visit Data *Final* Discharge Date/Time: 12/23/18 13:22 Chief Complaint: Fever Stated Complaint: FEVER FOR 3 DAYS,CHF,ABD PAIN ED Provider: Zeb Griggs Discharge Problem: Acute on chronic kidney failure Patient Disposition: Admitted As Inpatient Discharge Instructions Interventions: ED Discharge Assessment Last Done: 12/23/18 13:22 Discharge Problem: Acute on chronic kidney failure Qualifiers: Acute renal failure type: unspecified Chronic kidney disease stage: unspecified stage Qualified Code(s): N17.9 - Acute kidney failure, unspecified The scribe's documentation has been prepared under my direction and personally reviewed by me in its entirety. I confirm that the note above accurately reflects all work, treatment, procedures, and medical decision making performed by me.
[2018-12-23] MEDS ORDERED: GLUCAGON FOR INJ 1 MG VIAL SQ PRN (14:56)
[2018-12-23] MEDS ORDERED: CARBOHYDRATES FOR HYPOGLYCEMIA PO PRN (14:56)
[2018-12-23] MEDS ORDERED: GLUCOSE 10 TABS/TUBE PO PRN (14:56)
[2018-12-23] MEDS ORDERED: DEXTROSE 50% 50 ML SYRINGE IV PRN (14:56)
[2018-12-23] MEDS ORDERED: GLUCOSE 40% GEL 15 GM TUBE PO PRN (14:56)
[2018-12-23] MEDS ORDERED: POLYETHYLENE (MIRALAX) 17 GM PACK PO PRN (14:56)
[2018-12-23] MEDS ORDERED: TRAMADOL HCL 50 MG TABLET PO PRN (15:20)
[2018-12-23] MEDS: GABAPENTIN 300 MG CAP PO SCH ×2 (15:51→19:59)
[2018-12-23] MEDS ORDERED: INSULIN GLARGINE SOLOSTAR 100 UNITS/ML 3 ML PEN SC SCH (19:00)
[2018-12-23] MEDS ORDERED: PHARMACY GLYCEMIC MGMT CONSULT PRN (19:29)
[2018-12-23] MEDS ORDERED: INSULIN ASPART 100 UNITS/ML 3 ML PEN SC SCH (19:30)
[2018-12-23] MEDS: ACETAMINOPHEN 325 MG TAB PO PRN (19:58)
[2018-12-23] MEDS: cefTRIAXone SODIUM 1,000 MG in DEXTROSE 5% 50 ML IV SCH (19:59)
[2018-12-23] MEDS: ROPINIROLE HCL 1 MG TABLET PO SCH (19:59)
[2018-12-23] MEDS: METOPROLOL TARTRATE 50 MG TAB PO SCH (20:00)
[2018-12-23] MEDS: PANTOprazole 40 MG TAB PO SCH (20:00)
[2018-12-23] MEDS: clonazePAM 0.5 MG TAB PO SCH (20:02)
[2018-12-23] MEDS ORDERED: INSULIN GLARGINE 100 UNIT/ML VIAL SC SCH (21:45)
[2018-12-23] MEDS: NORTRIPTYLINE HCL 25 MG CAP PO SCH (22:41)
[2018-12-23] MEDS: INSULIN ASPART 100 UNITS/ML 3 ML PEN SC SCH (22:49)
[2018-12-23] MEDS: ONDANSETRON INJ 2 MG/ML 2 ML VIAL IV PRN (23:57)
[2018-12-24] MEDS ORDERED: INSULIN ASPART 100 UNITS/ML 3 ML PEN SC SCH
[2018-12-24] MEDS: INSULIN ASPART 100 UNITS/ML 3 ML PEN SC SCH ×6 (00:07→21:13)
[2018-12-24] MEDS ORDERED: CALCIUM CARBONATE 500 MG CHEWABLE TAB PO PRN (01:36)
[2018-12-24] MEDS: LEVOTHYROXINE SODIUM 25 MCG TABLET PO SCH (06:26)
[2018-12-24] MEDS: LEVOTHYROXINE SODIUM 200 MCG TABLET PO SCH (06:26)
[2018-12-24 07:18] LABS: Hematocrit (blood only) 41.3 % (37-47); Hemoglobin 13.5 g/dL (12.0-16.0); Mean Corpuscular Hgb Conc 32.7 g/dL (32-36); Mean Corpuscular Volume 92.6 fL (80-100); Mean Platelet Volume 9.5 fL (7.4-10.4); Platelet Count 214 K/uL (130-400); RDW Coefficient of Variation 15.6 % (11.5-14.5); RDW Standard Deviation 52.9 fL (36.4-46.3); Red Blood Count 4.46 M/uL (4.2-5.4); White Blood Count 6.25 K/uL (4.8-10.8)
[2018-12-24 07:41] LABS: BUN Creatinine Ratio 23.8 (10-20); Calcium 8.3 mg/dl (8.5-10.1); Creatinine Clr Calc Pharmacy 54.5 ml/min; Est GFR (African American) 38.8; Est GFR (Non-African American) 33.4; Potassium 3.6 mmol/L (3.5-5.1)
[2018-12-24] MEDS: METOPROLOL TARTRATE 50 MG TAB PO SCH ×2 (08:33→21:12)
[2018-12-24] MEDS: SPIRONOLACTONE 25 MG TAB PO SCH (08:33)
[2018-12-24] MEDS: MAGNESIUM OXIDE 400 MG TAB PO SCH (08:33)
[2018-12-24] MEDS: GABAPENTIN 300 MG CAP PO SCH ×3 (08:33→21:10)
[2018-12-24] MEDS: DULOXETINE HCL 60 MG CAP PO SCH (08:33)
[2018-12-24] MEDS: clonazePAM 0.5 MG TAB PO SCH ×2 (08:40→21:10)
[2018-12-24] MEDS: TRAMADOL HCL 50 MG TABLET PO PRN (10:44)
[2018-12-24] MEDS: ONDANSETRON INJ 2 MG/ML 2 ML VIAL IV PRN ×2 (10:44→20:19)
--- NOTE | 2018-12-24 14:19 | Pharmacy Report ---
Pharmacy Glycemic Short Note 2 - Date of Service December 24, 2018 - Glycemic Short BSG Results (Last 24 hours): 12/23/18 12/23/18 12/23/18 12:26 16:34 20:38 Glucose POC Glucose 133 H 227 H 223 H 12/23/18 12/23/18 12/23/18 20:52 20:54 20:56 Glucose POC Glucose 343 H 258 H 237 H 12/24/18 12/24/18 12/24/18 00:06 04:17 06:55 Glucose 181 H POC Glucose 215 H 179 H 12/24/18 12/24/18 07:45 11:44 Glucose POC Glucose 179 H 242 H OUTPATIENT ANTIDIABETIC REGIMEN: * Novolog SSI, Tresiba 160u HS, Victoza ASSESSMENT: * BSGs over the preceding 24hrs mostly hyperglycemic: [phone]/dL. A1C pending for tomorrow. Unsure of when last Tresiba dose was given. Hyperglycemia likely 2/2 to her basal deficiency. PLAN FOR INPATIENT GLYCEMIC CONTROL: * Hold outpatient oral diabetes medications * Basal insulin * Lantus scale SQ daily with dinner * BSGs <150mg/dL give 120units * BSGs 150-180 mg/dL give 140 units * BSGs >180mg/dL give 160 units (home Rx) * Bolus insulin * NovoLog per scale ACHS or Q6hrs while NPO * Goal Range: Low 120 mg/dL - High 160 mg/dL * Correction Factor: 10 mg/dL/unit * Nutritional / Prandial insulin per carb ratio of 1 unit per 4 grams CHO consumed * will add 00,04 checks in the setting of sustained hyperglycemia
[2018-12-24] MEDS: ACETAMINOPHEN 325 MG TAB PO PRN (14:51)
[2018-12-24] MEDS ORDERED: INSULIN GLARGINE 100 UNIT/ML VIAL SC SCH (16:30)
--- NOTE | 2018-12-24 17:25 | Hospitalist Progress Note ---
Date of Service December 24, 2018 Assessment & Plan (1) UTI (urinary tract infection): Symptoms and urinalysis consistent with acute cystitis. Present on arrival. Empiric Rocephin was started pending urine cultures. CT scan of the abdomen pelvis yesterday revealed no acute intra-abdominal pathology. (2) Acute on chronic kidney failure: Resolved after giving IV fluids and holding diuretics and lisinopril. We will give her 1 more day to stabilize and will consider resuming diuretics tomorrow. (3) Type 2 diabetes, uncontrolled, with neuropathy: Hold home medications. Continue NovoLog/Lantus while hospitalized. Appreciate pharmacy assistance with glycemic management. Recent A1c was greater than 9 at last visit. (4) Hypoxia: Resolved, possibly secondary to generalized malaise. ? (5) ELISSA on CPAP: Okay to use home CPAP. (6) Morbid obesity: (7) Hypothyroidism: Continue daily Synthroid replacement per home regimen. (8) RLS (restless legs syndrome): Continue ropinirole per home regimen. (9) Fibromyalgia: Continue gabapentin 300 mg p.o. 3 times a day. Ultram as needed breakthrough pain. (10) DVT prophylaxis: Type I allergy to heparin which is contraindicated. Full code Disposition-to telemetry Shantell Eli DO [facility] Hospitalist Subjective Feels improved since yesterday. Creatinine is improved to baseline. States that on the increased dose of gabapentin, she feels much better. Reporting some lower abdominal soreness this morning including her left lower quadrant, right lower quadrant and suprapubic area. She does report some incomplete voiding and urinary urgency consistent with UTI. She denies any fevers or chills. Physical Exam Vital Signs (Past 24 Hours): Last Vital Signs Temp 36.5 C 12/24/18 15:49 Pulse 87 12/24/18 15:49 Resp 20 12/24/18 15:49 BP 97/69 L 12/24/18 15:49 Pulse Ox 96 12/24/18 15:49 CONSTITUTIONAL: obese, vitals as above, appears improved today EYES: normal conjuctivae, no scleral icterus ENT: MMM RESPIRATORY: clear to auscultation bilaterally, no crackles, rales or wheezes, normal respiratory effort CARDIOVASCULAR: regular rate and rhythm, S1 and 2 heard without murmurs, gallops or rubs, no JVD, no peripheral edema GASTROINTESTINAL: normal bowel sounds, protuberant abdomen, soft, TTP in LLQ nad RLQ and across suprapubic area, nondistended, no CVA tenderness MUSCULOSKELETAL: strength 5/5 throughout, head is normocephalic and atraumatic, neck supple, multiple tenderpoints on chest wall, all down her back, legs and arms. SKIN: warm and dry NEUROLOGIC: CN 2-12 grossly intact, no sensory deficit, normal cognition, normal speech PSYCHIATRIC: alert cooperative and oriented to person, place and time. Results & Data Laboratory Results Short CBC 12/24/18 Range/Units 06:55 WBC 6.25 (4.8-10.8) K/uL Hgb 13.5 (12.0-16.0) g/dL Hct 41.3 (37-47) % Plt Count 214 (130-400) K/uL BMP 12/24/18 06:55 Sodium 134 L Potassium 3.6 Chloride 99 Carbon Dioxide 30 BUN 39 H Creatinine 1.62 H D Glucose 181 H Calcium 8.3 L Medications Administered Current Inpatient Medications Acetaminophen (Tylenol) 650 mg PO Q4H PRN PRN Reason: Pain or Fever Stop: 01/22/19 14:55 Last Admin: 12/24/18 14:51 Dose: 650 mg Documented by: Calcium Carbonate (Tums) 500 mg PO QID PRN PRN Reason: Indigestion Stop: 01/23/19 01:35 Last Admin: 12/24/18 08:32 Dose: 500 mg Documented by: Clonazepam (Klonopin) 0.5 mg PO BID [facility] Stop: 01/22/19 20:59 Last Admin: 12/24/18 08:40 Dose: 0.5 mg Documented by: Cyclobenzaprine HCl (Flexeril) 10 mg PO HS PRN PRN Reason: Muscle Spasm Stop: 01/22/19 09:26 Dextrose (Dextrose 50%) 25 - 50 ml IV UD PRN; Protocol PRN Reason: Hypoglycemia Protocol Stop: 01/22/19 14:55 Duloxetine HCl (Cymbalta) 60 mg PO DAILY [facility] Stop: 01/23/19 08:59 Last Admin: 12/24/18 08:33 Dose: 60 mg Documented by: Gabapentin (Neurontin) 300 mg PO TID [facility] Stop: 01/22/19 15:22 Last Admin: 12/24/18 12:55 Dose: 300 mg Documented by: Glucagon (Glucagen) 1 mg SQ UD PRN; Protocol PRN Reason: Hypoglycemia Protocol Stop: 01/22/19 14:55 Glucose (Glucose 40%) 15 - 30 gm PO UD PRN; Protocol PRN Reason: Hypoglycemia Protocol Stop: 01/22/19 14:55 Glucose (Dex4 Glucose) 4 - 8 tabs PO UD PRN; Protocol PRN Reason: Hypoglycemia Protocol Stop: 01/22/19 14:55 Ceftriaxone Sodium 1,000 mg/ (Dextrose) 50 mls @ 100 mls/hr IV Q24H [facility]; Protocol Stop: 12/28/18 19:59 Last Infusion: 12/23/18 20:43 Dose: Infused Documented by: Insulin Aspart (Novolog Flexpen) 0 units SC ACHS [facility]; Protocol Stop: 01/22/19 20:59 Last Admin: 12/24/18 12:56 Dose: 16 units Documented by: Insulin Aspart (Novolog Flexpen) 0 units SC TODAY@0000,0400 [facility]; Protocol Stop: 12/25/18 04:01 Insulin Glargine (Lantus) 0 units SC QDD [facility]; Protocol Stop: 01/23/19 16:29 [facility] Stop: 01/23/19 06:29 Last Admin: 12/24/18 06:26 Dose: 200 mcg Documented by: Levothyroxine Sodium (Synthroid) 25 mcg PO DAILYBB [facility] Stop: 01/23/19 06:29 Last Admin: 12/24/18 06:26 Dose: 25 mcg Documented by: Magnesium Oxide (Mag-Ox) 400 mg PO DAILY [facility] Stop: 01/23/19 08:59 Last Admin: 12/24/18 08:33 Dose: 400 mg Documented by: Metoprolol Tartrate (Lopressor) 50 mg PO BID [facility] Stop: 01/22/19 20:59 Last Admin: 12/24/18 08:33 Dose: 50 mg Documented by: Miscellaneous (Carbohydrates For Hypoglycemia) 15 - 30 gm PO UD PRN PRN Reason: Hypoglycemia Treatment Stop: 01/22/19 14:55 Miscellaneous Information (Consult Glycemic Management Pharmacy) 1 ea N/A UD PRN PRN Reason: Consult Stop: 01/22/19 19:28 Nortriptyline HCl (Pamelor) 50 mg PO HS [facility] Stop: 01/22/19 20:59 Last Admin: 12/23/18 22:41 Dose: 50 mg Documented by: Ondansetron HCl (Zofran) 4 mg IV Q6H PRN PRN Reason: Nausea Stop: 01/22/19 14:55 Last Admin: 12/24/18 10:44 Dose: 4 mg Documented by: Pantoprazole Sodium (Protonix) 40 mg PO HS [facility]; Protocol Stop: 01/22/19 20:59 Last Admin: 12/23/18 20:00 Dose: 40 mg Documented by: Polyethylene Glycol (Miralax Powder Packet) 17 gm PO DAILY PRN PRN Reason: Constipation Stop: 01/22/19 14:55 Ropinirole HCl (Requip) 1 mg PO [facility] Stop: 01/22/19 20:59 Last Admin: 12/23/18 19:59 Dose: 1 mg Documented by: Spironolactone (Aldactone) 12.5 mg PO DAILY [facility] Stop: 01/23/19 08:59 Last Admin: 12/24/18 08:33 Dose: 12.5 mg Documented by: Tramadol HCl (Ultram) 50 mg PO Q6H PRN PRN Reason: Pain Stop: 01/22/19 14:44 Last Admin: 12/24/18 10:44 Dose: 50 mg Documented by: (1) Acute on chronic kidney failure Acute renal failure type: unspecified Chronic kidney disease stage: unspecified stage Qualified Code(s): N17.9 - Acute kidney failure, unspecified; N18.9 - Chronic kidney disease, unspecified
[2018-12-24] MEDS: INSULIN GLARGINE 100 UNIT/ML VIAL SC SCH (17:43)
[2018-12-24] MEDS: cefTRIAXone SODIUM 1,000 MG in DEXTROSE 5% 50 ML IV SCH (20:10)
[2018-12-24] MEDS: PANTOprazole 40 MG TAB PO SCH (21:10)
[2018-12-24] MEDS: NORTRIPTYLINE HCL 25 MG CAP PO SCH (21:11)
[2018-12-24] MEDS: ROPINIROLE HCL 1 MG TABLET PO SCH (21:12)
[2018-12-25] MEDS: INSULIN ASPART 100 UNITS/ML 3 ML PEN SC SCH ×6 (00:14→20:56)
[2018-12-25] MEDS: TRAMADOL HCL 50 MG TABLET PO PRN ×3 (00:40→20:58)
[2018-12-25] MEDS ORDERED: DAPTOMYCIN CONSULT ACTIVE PRN (01:14)
[2018-12-25] MEDS: DAPTOmycin 600 MG in SYRINGE 0 ML IV SCH (01:59)
[2018-12-25] MEDS: LEVOTHYROXINE SODIUM 200 MCG TABLET PO SCH (06:20)
[2018-12-25] MEDS: LEVOTHYROXINE SODIUM 25 MCG TABLET PO SCH (06:20)
[2018-12-25 07:33] LABS: Hematocrit (blood only) 39.3 % (37-47); Hemoglobin 12.4 g/dL (12.0-16.0); Mean Corpuscular Hgb Conc 31.6 g/dL (32-36); Mean Corpuscular Volume 92.3 fL (80-100); Mean Platelet Volume 9.7 fL (7.4-10.4); Platelet Count 208 K/uL (130-400); RDW Coefficient of Variation 15.6 % (11.5-14.5); RDW Standard Deviation 52.5 fL (36.4-46.3); Red Blood Count 4.26 M/uL (4.2-5.4); White Blood Count 6.15 K/uL (4.8-10.8)
[2018-12-25] MEDS: METOPROLOL TARTRATE 50 MG TAB PO SCH ×2 (07:51→20:59)
[2018-12-25] MEDS: GABAPENTIN 300 MG CAP PO SCH ×3 (07:51→21:00)
[2018-12-25] MEDS: SPIRONOLACTONE 25 MG TAB PO SCH (07:51)
[2018-12-25] MEDS: MAGNESIUM OXIDE 400 MG TAB PO SCH (07:51)
[2018-12-25] MEDS: DULOXETINE HCL 60 MG CAP PO SCH (07:51)
[2018-12-25] MEDS: clonazePAM 0.5 MG TAB PO SCH ×2 (07:51→20:58)
[2018-12-25 07:56] LABS: Estimated Average Glucose 220 mg/dl; Hemoglobin A1C 9.3 % (4.5-5.6)
[2018-12-25 08:09] LABS: BUN Creatinine Ratio 23.3 (10-20); Calcium 8.2 mg/dl (8.5-10.1); Creatinine Clr Calc Pharmacy 58.2 ml/min; Est GFR (African American) 41.9; Est GFR (Non-African American) 36.1; Potassium 3.5 mmol/L (3.5-5.1)
--- NOTE | 2018-12-25 10:39 | Infectious Disease Consult ---
Date of Consultation December 25, 2018 Assessment & Plan (1) UTI (urinary tract infection): continue rocephin for now, can likely transition to po abx to complete course, would give 7 days (2) Positive blood culture: ? 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 afebrile since admission. UA in ER > 30 wbc, creat elevated at 2.5, ct did not show stones. urine culture from 12/23 growing anderson sensitive Klebsiella. blood cultures 1/2 sets gpc. Has been on rocephin for uti, dapto added today due to + blood culture, ID consulted for dapto approval. wbc 6, creat improved to 1.5. tolerating abx. Pt oob to chair on my exam. states overall she is feeling better, abd pain has improved but not resolved. no gu symptoms, no cp, sob, cough, wheeze, no n/v/d, eating well. Allergies Allergy/AdvReac Type Severity Reaction Status Date / Time tetanus toxoid, adsorbed Allergy Mild PASSED OUT Verified 12/23/18 06:29 AND GOT SICK WHEN A CHILD codeine Allergy Unknown Hallucinati Verified 12/23/18 06:29 ons heparin Allergy Unknown HIT; FLUID Verified 12/23/18 06:29 IN LUNGS morphine Allergy Unknown VIOLENT Verified 12/23/18 06:29 REACTION-"ALMOST " SWELLING Home Medications Home Medications Medication Instructions Recorded Confirmed Type clonazepam 0.5 mg PO BID 06/09/18 12/23/18 History levothyroxine 25 mcg PO DAILY 06/09/18 12/23/18 History levothyroxine 200 mcg PO DAILY 06/09/18 12/23/18 History metoprolol tartrate 50 mg PO BID 06/09/18 12/23/18 History nortriptyline [Pamelor] 50 mg PO HS 06/09/18 12/23/18 History omeprazole 20 mg PO HS 06/09/18 12/23/18 History ropinirole 1 mg PO HS 06/09/18 12/23/18 History liraglutide 1.8 mg SUBCUT DAILY 06/10/18 12/23/18 History Novolog Flexpen U-100 Insulin 1 sliding scale dose SUBCUT AC 12/08/18 12/23/18 History Tresiba FlexTouch U-200 160 units SUBCUT HS 12/08/18 12/23/18 History cyclobenzaprine 10 mg PO HS PRN 12/08/18 12/23/18 History ergocalciferol (vitamin D2) 50,000 unit PO WK 12/08/18 12/23/18 History [Vitamin D2] lisinopril 2.5 mg PO DAILY 12/08/18 12/23/18 History gabapentin 100 mg PO TID 30 Days #90 cap 12/14/18 12/23/18 Rx magnesium oxide 400 mg PO DAILY 30 Days #30 tab 12/14/18 12/23/18 Rx spironolactone 12.5 mg PO DAILY 30 Days #15 tab 12/14/18 12/23/18 Rx duloxetine 60 mg PO DAILY 12/23/18 12/23/18 History furosemide 80 mg PO BID 12/23/18 12/23/18 History Patient History Medical History CKD (chronic kidney disease), stage III (Chronic) History of thyroidectomy, total (Resolved) ELISSA on CPAP (Chronic) HTN (hypertension) (Chronic) HLD (hyperlipidemia) (Chronic) Morbid obesity (Chronic) 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) Depression with anxiety (Chronic) Hypothyroidism (Chronic) History of pulmonary embolism (Chronic) s/p zoraida filter GERD (gastroesophageal reflux disease) (Chronic) RLS (restless legs syndrome) (Chronic) History of DVT (deep vein thrombosis) (Resolved) Presence of IVC filter (Chronic) Fibromyalgia (Chronic) Diabetes (Chronic) Sepsis (Resolved) Surgical History History of cholecystectomy (Resolved) History of total right knee replacement (Resolved) History of tracheostomy (Resolved) 2010, secondary to acute resp failure secondary to pneumonia, transferred to [facility] History of colon resection (Resolved) secondary to R colon perforation, resected treated with colostomy and eventual reversal in 2008, Dr. Lerma Family History Father , age 74 Lung cancer Mother , age 45 Cirrhosis Social History Communication Ability: Effective Beliefs That Will Affect Care: None Current Living Situation: Alone Other Information That Helps Us Care for You: No Feels Safe at Home: Yes Safety Concerns: Feels Safe At This Time Smoking Status: Former smoker Hx Alcohol Use: No Hx Substance Use: No Review of Systems all remaining ros reviewed and are negative Physical Exam Vital Signs (Past 24 Hours): Last Vital Signs Temp 36.8 C 12/25/18 08:00 Pulse 84 12/25/18 08:00 Resp 20 12/25/18 08:00 BP 147/68 H 12/25/18 08:00 Pulse Ox 90 12/25/18 08:00 Constitutional: WD/WN, vitals as above Eyes: PERRL, conjunctivae normal, anicteric sclerae ENMT: external ear and nose normal, oropharynx normal Neck: trachea midline, no thyromegaly normal visual inspection Respiratory: normal respiratory effort, lungs clear to auscultation Cardiovascular: RRR, no murmur, no edema Gastrointestinal (Abdomen): normal bowel sounds, soft, nontender, no hepatosplenomegaly Musculoskeletal: no cyanosis or clubbing, extremities motor strength 5/5 Skin: no rashes, warm and dry + rash (left forearm, excoriated, not red) and + excoriations Psychiatric: A+Ox3, euthymic affect Results & Data Laboratory Results Microbiology 12/23/18 07:00 Urine,Clean Catch Urine Culture - Final Klebsiella pneumoniae 12/23/18 19:12 Blood Blood Culture - Preliminary No growth to date. 12/23/18 19:15 Blood Blood Culture - Preliminary Gram positive cocci
--- NOTE | 2018-12-25 10:49 | Pharmacy Report ---
Pharmacy Glycemic Short Note 2 - Date of Service December 25, 2018 - Glycemic Short BSG Results (Last 24 hours): 12/24/18 12/24/18 12/24/18 11:44 16:52 20:14 Glucose POC Glucose 242 H 177 H 153 H 12/24/18 12/25/18 12/25/18 23:31 04:42 07:16 Glucose 154 H POC Glucose 180 H 167 H 12/25/18 07:17 Glucose POC Glucose 159 H OUTPATIENT ANTIDIABETIC REGIMEN: * Novolog per sliding scale (pt reports usually taking ~15 units w/ breakfast, none with lunch, and ~20-30 units with dinner) * Tresiba 160 units Q HS * Victoza 1.8mg SQ daily * A1c = 9.3% 12/25/18 ASSESSMENT: 12/25 * Fasting BSG 159 this AM w/ 140 units of Lantus on board as well as 3 units of Novolog correction given overnight. Will continue similar dosing scale today * Post-prandial BSGs well controlled 2 of 3 times yesterday. Will continue the same dosing parameters today, however if pre-lunch elevation seen again today she may require a larger Novolog dose w/ breakfast. PLAN FOR INPATIENT GLYCEMIC CONTROL: * Basal insulin * Lantus scale SQ daily with dinner * BSGs <140mg/dL give 120units * BSGs 140-180 mg/dL give 140 units * BSGs >180mg/dL give 160 units (home Rx) * Bolus insulin * NovoLog per scale ACHS or Q6hrs while NPO * Goal Range: Low 120 mg/dL - High 160 mg/dL * Correction Factor: 10 mg/dL/unit * Nutritional / Prandial insulin per carb ratio of 1 unit per 4 grams CHO consumed Plan for discharge: * A1c elevated (9.3%); patient's dietary, medication and lifestyle compliance will need to be assessed. If compliance confirmed, an escalation in prandial insulin doses is likely most beneficial for A1c reduction. Pt reported to me that she has been taking the above doses of Tresiba and Victoza for more than a year, however the dose of Novolog was last adjusted a few months ago by [facility]ication [facility].
[2018-12-25] MEDS: ACETAMINOPHEN 325 MG TAB PO PRN (14:00)
[2018-12-25] MEDS: PHENAZOPYRIDINE HCL 200 MG TAB PO SCH ×2 (16:39→21:01)
[2018-12-25] MEDS: INSULIN GLARGINE 100 UNIT/ML VIAL SC SCH (17:32)
[2018-12-25] MEDS: cefTRIAXone SODIUM 1,000 MG in DEXTROSE 5% 50 ML IV SCH (20:14)
[2018-12-25] MEDS: NORTRIPTYLINE HCL 25 MG CAP PO SCH (21:00)
[2018-12-25] MEDS: ROPINIROLE HCL 1 MG TABLET PO SCH (21:01)
[2018-12-25] MEDS: PANTOprazole 40 MG TAB PO SCH (21:01)
--- NOTE | 2018-12-25 23:36 | Hospitalist Progress Note ---
Date of Service December 25, 2018 Assessment & Plan (1) Positive blood culture: Daptomycin added empirically pending blood cultures. ID consult placed. Appreciate recommendations (2) UTI (urinary tract infection): Continue Rocephin pending input from infectious disease on recent blood cultures and antibiotic recommendations. (3) Acute on chronic kidney failure: Resolved after giving IV fluids and holding diuretics and lisinopril. (4) HTN (hypertension): Holding lisinopril (5) Type 2 diabetes, uncontrolled, with neuropathy: Hold home medications. Continue NovoLog/Lantus while hospitalized. Appreciate pharmacy assistance with glycemic management. Recent A1c was greater than 9 at last visit. Per school vocational educator the patient should have more short acting insulin added at discharge. This will be an ongoing conversation with the patient and what she feels comfortable with the discharge. Any changes should be closely monitored by primary care provider. (6) ELISSA on CPAP: CPAP (7) Morbid obesity: (8) Hypothyroidism: Continue daily Synthroid replacement per home regimen. (9) RLS (restless legs syndrome): Continue ropinirole per home regimen. (10) Fibromyalgia: Continue gabapentin 300 mg p.o. 3 times a day. Ultram as needed breakthrough pain. Her generalized malaise is thought secondary to the recent urinary tract infection recovering from this. However, a change in the gabapentin or addition of other medication to treat her fibromyalgia is also consideration. I would wait until her infection is completely cleared and she i s improved before changing anything with respect to this. I have shared this recommendation with her today and she is in agreement (11) DVT prophylaxis: Type I allergy to heparin which is contraindicated. Full code Disposition-likely to home in 1-2 days. Shantell Eli DO [facility] Hospitalist Subjective Still feeling peaked, afebrile, tolerating p.o. Lower abdominal suprapubic tenderness is present. Physical Exam Vital Signs (Past 24 Hours): Last Vital Signs Temp 36.8 C 12/25/18 23:02 Pulse 74 12/25/18 23:02 Resp 19 12/25/18 23:02 BP 92/60 L 12/25/18 23:02 Pulse Ox 90 12/25/18 23:02 CONSTITUTIONAL: obese, vitals as above, appears fatigued EYES: normal conjunctivae, no scleral icterus ENT: MMM RESPIRATORY: clear to auscultation bilaterally, no crackles, rales or wheezes, normal respiratory effort CARDIOVASCULAR: regular rate and rhythm, S1 and 2 heard without murmurs, gallops or rubs, no JVD, no peripheral edema GASTROINTESTINAL: normal bowel sounds, protuberant abdomen, soft, suprapubic tenderness to palpation MUSCULOSKELETAL: strength 5/5 throughout, head is normocephalic and atraumatic, neck supple, multiple tenderpoints on chest wall, all down her back, legs and arms. SKIN: warm and dry NEUROLOGIC: CN 2-12 grossly intact, no sensory deficit, normal cognition, normal speech PSYCHIATRIC: alert cooperative and oriented to person, place and time. Results & Data Laboratory Results Short CBC 12/25/18 Range/Units 07:16 WBC 6.15 (4.8-10.8) K/uL Hgb 12.4 (12.0-16.0) g/dL Hct 39.3 (37-47) % Plt Count 208 (130-400) K/uL BMP 12/25/18 07:16 Sodium 136 Potassium 3.5 Chloride 101 Carbon Dioxide 27 BUN 35 H Creatinine 1.52 H Glucose 154 H Calcium 8.2 L Medications Administered Current Inpatient Medications Acetaminophen (Tylenol) 650 mg PO Q4H PRN PRN Reason: Pain or Fever Stop: 01/22/19 14:55 Last Admin: 12/25/18 14:00 Dose: 650 mg Documented by: Calcium Carbonate (Tums) 500 mg PO QID PRN PRN Reason: Indigestion Stop: 01/23/19 01:35 Last Admin: 12/24/18 08:32 Dose: 500 mg Documented by: Clonazepam (Klonopin) 0.5 mg PO BID [facility] Stop: 01/22/19 20:59 Last Admin: 12/25/18 20:58 Dose: 0.5 mg Documented by: Cyclobenzaprine HCl (Flexeril) 10 mg PO HS PRN PRN Reason: Muscle Spasm Stop: 01/22/19 09:26 Dextrose (Dextrose 50%) 25 - 50 ml IV UD PRN; Protocol PRN Reason: Hypoglycemia Protocol Stop: 01/22/19 14:55 Diphenhydramine HCl (Benadryl Capsule) 25 mg PO Q6H PRN PRN Reason: itching or rash Stop: 01/24/19 21:59 Duloxetine HCl (Cymbalta) 60 mg PO DAILY [facility] Stop: 01/23/19 08:59 Last Admin: 12/25/18 07:51 Dose: 60 mg Documented by: Gabapentin (Neurontin) 300 mg PO TID [facility] Stop: 01/22/19 15:22 Last Admin: 12/25/18 21:00 Dose: 300 mg Documented by: Glucagon (Glucagen) 1 mg SQ UD PRN; Protocol PRN Reason: Hypoglycemia Protocol Stop: 01/22/19 14:55 Glucose (Glucose 40%) 15 - 30 gm PO UD PRN; Protocol PRN Reason: Hypoglycemia Protocol Stop: 01/22/19 14:55 Glucose (Dex4 Glucose) 4 - 8 tabs PO UD PRN; Protocol PRN Reason: Hypoglycemia Protocol Stop: 01/22/19 14:55 Ceftriaxone Sodium 1,000 mg/ (Dextrose) 50 mls @ 100 mls/hr IV Q24H [facility]; Protocol Stop: 12/28/18 19:59 Last Infusion: 12/25/18 20:55 Dose: Infused Documented by: Daptomycin 600 mg/ Syringe 12 mls @ 5.75 mls/min IV Q24H [facility]; Protocol Stop: 01/07/19 23:29 Last Admin: 12/25/18 01:59 Dose: 5.75 mls/min Documented by: Insulin Aspart (Novolog Flexpen) 0 units SC ACHS [facility]; Protocol Stop: 01/22/19 20:59 Last Admin: 12/25/18 20:56 Dose: Not Given Documented by: Insulin Glargine (Lantus) 0 units SC QDD [facility]; Protocol Stop: 01/23/19 16:29 Last Admin: 12/25/18 17:32 Dose: 140 units Documented by: Levothyroxine Sodium (Synthroid) 200 mcg PO DAILYBB [facility] Stop: 01/23/19 06:29 Last Admin: 12/25/18 06:20 Dose: 200 mcg Documented by: Levothyroxine Sodium (Synthroid) 25 mcg PO DAILYBB [facility] Stop: 01/23/19 06:29 Last Admin: 12/25/18 06:20 Dose: 25 mcg Documented by: Magnesium Oxide (Mag-Ox) 400 mg PO DAILY [facility] Stop: 01/23/19 08:59 Last Admin: 12/25/18 07:51 Dose: 400 mg Documented by: Metoprolol Tartrate (Lopressor) 50 mg PO BID [facility] Stop: 01/22/19 20:59 Last Admin: 12/25/18 20:59 Dose: 50 mg Documented by: Miscellaneous (Carbohydrates For Hypoglycemia) 15 - 30 gm PO UD PRN PRN Reason: Hypoglycemia Treatment Stop: 01/22/19 14:55 Miscellaneous Information (Consult Glycemic Management Pharmacy) 1 ea N/A UD PRN PRN Reason: Consult Stop: 01/22/19 19:28 Miscellaneous Information (Consult) 1 ea N/A UD PRN PRN Reason: Consult Stop: 01/24/19 01:13 Nortriptyline HCl (Pamelor) 50 mg PO [facility] Stop: 01/22/19 20:59 Last Admin: 12/25/18 21:00 Dose: 50 mg Documented by: Ondansetron HCl (Zofran) 4 mg IV Q6H PRN PRN Reason: Nausea Stop: 01/22/19 14:55 Last Admin: 12/24/18 20:19 Dose: 4 mg Documented by: Pantoprazole Sodium (Protonix) 40 mg PO [facility]; Protocol Stop: 01/22/19 20:59 Last Admin: 12/25/18 21:01 Dose: 40 mg Documented by: Phenazopyridine HCl (Pyridium) 200 mg PO TID [facility] Stop: 01/24/19 15:59 Last Admin: 12/25/18 21:01 Dose: 200 mg Documented by: Polyethylene Glycol (Miralax Powder Packet) 17 gm PO DAILY PRN PRN Reason: Constipation Stop: 01/22/19 14:55 Ropinirole HCl (Requip) 1 mg PO [facility] Stop: 01/22/19 20:59 Last Admin: 12/25/18 21:01 Dose: 1 mg Documented by: Spironolactone (Aldactone) 12.5 mg PO DAILY [facility] Stop: 01/23/19 08:59 Last Admin: 12/25/18 07:51 Dose: 12.5 mg Documented by: Tramadol HCl (Ultram) 50 mg PO Q6H PRN PRN Reason: Pain Stop: 01/22/19 14:44 Last Admin: 12/25/18 20:58 Dose: 50 mg Documented by: (1) Acute on chronic kidney failure Acute renal failure type: unspecified Chronic kidney disease stage: unspecified stage Qualified Code(s): N17.9 - Acute kidney failure, unspecified; N18.9 - Chronic kidney disease, unspecified
[2018-12-26] MEDS: ONDANSETRON INJ 2 MG/ML 2 ML VIAL IV PRN ×2 (01:49→17:27)
[2018-12-26] MEDS: DAPTOmycin 600 MG in SYRINGE 0 ML IV SCH (01:50)
[2018-12-26] MEDS: TRAMADOL HCL 50 MG TABLET PO PRN ×2 (04:29→20:39)
[2018-12-26] MEDS: LEVOTHYROXINE SODIUM 200 MCG TABLET PO SCH (06:15)
[2018-12-26] MEDS: LEVOTHYROXINE SODIUM 25 MCG TABLET PO SCH (06:15)
[2018-12-26] MEDS: DULOXETINE HCL 60 MG CAP PO SCH (08:58)
[2018-12-26] MEDS: METOPROLOL TARTRATE 50 MG TAB PO SCH ×2 (08:58→21:01)
[2018-12-26] MEDS: MAGNESIUM OXIDE 400 MG TAB PO SCH (08:58)
[2018-12-26] MEDS: GABAPENTIN 300 MG CAP PO SCH ×3 (08:58→20:42)
[2018-12-26] MEDS: SPIRONOLACTONE 25 MG TAB PO SCH (08:58)
[2018-12-26] MEDS: PHENAZOPYRIDINE HCL 200 MG TAB PO SCH ×3 (08:58→20:40)
[2018-12-26] MEDS: INSULIN ASPART 100 UNITS/ML 3 ML PEN SC SCH ×4 (09:01→21:01)
[2018-12-26] MEDS: clonazePAM 0.5 MG TAB PO SCH ×2 (09:03→20:39)
[2018-12-26] MEDS: ACETAMINOPHEN 325 MG TAB PO PRN (10:54)
--- NOTE | 2018-12-26 12:56 | Infectious Disease Progress Nt ---
Date of Service December 26, 2018 Assessment & Plan (1) UTI (urinary tract infection): continue rocephin for now, can likely transition to po abx to complete course, would give 7 days (2) Positive blood culture: suspect contaminant. If 4/1 cultures negative, can stop dapto. will follow. 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 repeat cultures are pending. tolerating abx, remains afebrile. no new am labs. Physical Exam Vital Signs (Past 24 Hours): Last Vital Signs Temp 36.6 C 12/26/18 07:43 Pulse 92 H 12/26/18 07:43 Resp 20 12/26/18 07:43 BP 167/62 H 12/26/18 07:43 Pulse Ox 92 12/26/18 07:43 Results & Data Laboratory Results Microbiology 12/23/18 19:15 Blood Blood Culture - Final Coag neg staph not lugdunensis 12/23/18 07:00 Urine,Clean Catch Urine Culture - Final Klebsiella pneumoniae 12/23/18 19:12 Blood Blood Culture - Preliminary No growth to date.
--- NOTE | 2018-12-26 13:03 | Hospitalist Progress Note ---
Date of Service December 26, 2018 Assessment & Plan (1) Positive blood culture: Coag negative staph in 1 of 2 bottles. Patient is afebrile. She does not look clinically well but is improved overall. Suspect contaminant. Will await ID formal recommendations. Continue daptomycin pending this. (2) UTI (urinary tract infection): Continue Rocephin pending input from infectious disease on recent blood cultures and antibiotic recommendations. (3) Acute on chronic kidney failure: Resolved after giving IV fluids and holding diuretics and lisinopril. Resume lisinopril today with elevated blood pressure. (4) HTN (hypertension): Resume lisinopril (5) Type 2 diabetes, uncontrolled, with neuropathy: Hold home medications. Continue NovoLog/Lantus while hospitalized. Appreciate pharmacy assistance with glycemic management. Recent A1c was greater than 9 at last visit. Per community health educator the patient should have more short acting insulin added at discharge. This will be an ongoing conversation with the patient and what she feels comfortable with the discharge. Any changes should be closely monitored by primary care provider. (6) ELISSA on CPAP: Okay to use home CPAP. (7) Morbid obesity: (8) Hypothyroidism: Continue daily Synthroid replacement per home regimen. (9) RLS (restless legs syndrome): Continue ropinirole per home regimen. (10) Fibromyalgia: Continue gabapentin 300 mg p.o. 3 times a day. Ultram as needed breakthrough pain. Her generalized malaise is thought secondary to the recent urinary tract infection recovering from this. However, a change in the gabapentin or addition of other medication to treat her fibromyalgia is also consideration. I would wait until her infection is completely cleared and she is improved before changing anything with respect to this. I have shared this recommendation with her today and she is in agreement (11) DVT prophylaxis: Type I allergy to heparin which is contraindicated. Full code Disposition-likely to home in 1 day. Shantell Eli DO [facility] Hospitalist Subjective 63-year-old female presented with fever and malaise was found to have AK I which has resolved after holding lisinopril, and Lasix. Blood pressure is starting to elevate will resume her Lasix today. She still does not feel quite herself and is reporting persistent malaise but is improved to some extent with the antibiotics for her urinary tract infection as well as the Pyridium that was started yesterday. Incidentally, the Pyridium also improve the lower abdominal discomfort that was present. She remains afebrile is tolerating p.o. and is ambulatory at baseline. Physical Exam Vital Signs (Past 24 Hours): Last Vital Signs Temp 36.6 C 12/26/18 07:43 Pulse 92 H 12/26/18 07:43 Resp 20 12/26/18 07:43 BP 167/62 H 12/26/18 07:43 Pulse Ox 92 12/26/18 07:43 CONSTITUTIONAL: obese, vitals as above, appears fatigued with generalized malaise. EYES: normal conjuctivae, no scleral icterus ENT: MMM RESPIRATORY: clear to auscultation bilaterally, no crackles, rales or wheezes, normal respiratory effort CARDIOVASCULAR: regular rate and rhythm, S1 and 2 heard without murmurs, gallops or rubs, no JVD, no peripheral edema GASTROINTESTINAL: normal bowel sounds, protuberant abdomen, soft, nontender to palpation however, abdomen is protuberant with multiple skin folds, scar tissue and multiple tender points in setting of fibromyalgia. Nondistended MUSCULOSKELETAL: strength 5/5 throughout, head is normocephalic and atraumatic, neck supple, multiple tenderpoints on chest wall, all down her back, legs and arms. SKIN: warm and dry NEUROLOGIC: CN 2-12 grossly intact, no sensory deficit, normal cognition, normal speech PSYCHIATRIC: alert cooperative and oriented to person, place and time. Results & Data Medications Administered Current Inpatient Medications Acetaminophen (Tylenol) 650 mg PO Q4H PRN PRN Reason: Pain or Fever Stop: 01/22/19 14:55 Last Admin: 12/26/18 10:54 Dose: 650 mg Documented by: Calcium Carbonate (Tums) 500 mg PO QID PRN PRN Reason: Indigestion Stop: 01/23/19 01:35 Last Admin: 12/24/18 08:32 Dose: 500 mg Documented by: Clonazepam (Klonopin) 0.5 mg PO BID ROBERT Stop: 01/22/19 20:59 Last Admin: 12/26/18 09:03 Dose: 0.5 mg Documented by: Cyclobenzaprine HCl (Flexeril) 10 mg PO HS PRN PRN Reason: Muscle Spasm Stop: 01/22/19 09:26 Dextrose (Dextrose 50%) 25 - 50 ml IV UD PRN; Protocol PRN Reason: Hypoglycemia Protocol Stop: 01/22/19 14:55 Diphenhydramine HCl (Benadryl Capsule) 25 mg PO Q6H PRN PRN Reason: itching or rash Stop: 01/24/19 21:59 Last Admin: 12/26/18 09:04 Dose: 25 mg Documented by: Duloxetine HCl (Cymbalta) 60 mg PO DAILY ROBERT Stop: 01/23/19 08:59 Last Admin: 12/26/18 08:58 Dose: 60 mg Documented by: Gabapentin (Neurontin) 300 mg PO TID ROBERT Stop: 01/22/19 15:22 Last Admin: 12/26/18 12:55 Dose: 300 mg Documented by: Glucagon (Glucagen) 1 mg SQ UD PRN; Protocol PRN Reason: Hypoglycemia Protocol Stop: 01/22/19 14:55 Glucose (Glucose 40%) 15 - 30 gm PO UD PRN; Protocol PRN Reason: Hypoglycemia Protocol Stop: 01/22/19 14:55 Glucose (Dex4 Glucose) 4 - 8 tabs PO UD PRN; Protocol PRN Reason: Hypoglycemia Protocol Stop: 01/22/19 14:55 Ceftriaxone Sodium 1,000 mg/ (Dextrose) 50 mls @ 100 mls/hr IV Q24H ROBERT; Protocol Stop: 12/28/18 19:59 Last Infusion: 12/25/18 20:55 Dose: Infused Documented by: Daptomycin 600 mg/ Syringe 12 mls @ 5.75 mls/min IV Q24H ROBERT; Protocol Stop: 01/07/19 23:29 Last Admin: 12/26/18 01:50 Dose: 5.75 mls/min Documented by: Insulin Aspart (Novolog Flexpen) 0 units SC ACHS ROBERT; Protocol Stop: 01/22/19 20:59 Last Admin: 12/26/18 12:56 Dose: 4 units Documented by: Insulin Glargine (Lantus) 0 units SC QDD ROBERT; Protocol Stop: 01/23/19 16:29 Last Admin: 12/25/18 17:32 Dose: 140 units Documented by: Levothyroxine Sodium (Synthroid) 200 mcg PO DAILYBB [facility] Stop: 01/23/19 06:29 Last Admin: 12/26/18 06:15 Dose: 200 mcg Documented by: Levothyroxine Sodium (Synthroid) 25 mcg PO DAILYBB [facility] Stop: 01/23/19 06:29 Last Admin: 12/26/18 06:15 Dose: 25 mcg Documented by: Lisinopril (Zestril) 2.5 mg PO QAM [facility] Stop: 01/25/19 13:14 Magnesium Oxide (Mag-Ox) 400 mg PO DAILY [facility] Stop: 01/23/19 08:59 Last Admin: 12/26/18 08:58 Dose: 400 mg Documented by: Metoprolol Tartrate (Lopressor) 50 mg PO BID [facility] Stop: 01/22/19 20:59 Last Admin: 12/26/18 08:58 Dose: 50 mg Documented by: Miscellaneous (Carbohydrates For Hypoglycemia) 15 - 30 gm PO UD PRN PRN Reason: Hypoglycemia Treatment Stop: 01/22/19 14:55 Miscellaneous Information (Consult Glycemic Management Pharmacy) 1 ea N/A UD PRN PRN Reason: Consult Stop: 01/22/19 19:28 Miscellaneous Information (Consult) 1 ea N/A UD PRN PRN Reason: Consult Stop: 01/24/19 01:13 Nortriptyline HCl (Pamelor) 50 mg PO [facility] Stop: 01/22/19 20:59 Last Admin: 12/25/18 21:00 Dose: 50 mg Documented by: Ondansetron HCl (Zofran) 4 mg IV Q6H PRN PRN Reason: Nausea Stop: 01/22/19 14:55 Last Admin: 12/26/18 01:49 Dose: 4 mg Documented by: Pantoprazole Sodium (Protonix) 40 mg PO [facility]; Protocol Stop: 01/22/19 20:59 Last Admin: 12/25/18 21:01 Dose: 40 mg Documented by: Phenazopyridine HCl (Pyridium) 200 mg PO TID [facility] Stop: 01/24/19 15:59 Last Admin: 12/26/18 12:55 Dose: 200 mg Documented by: Polyethylene Glycol (Miralax Powder Packet) 17 gm PO DAILY PRN PRN Reason: Constipation Stop: 01/22/19 14:55 Ropinirole HCl (Requip) 1 mg PO [facility] Stop: 01/22/19 20:59 Last Admin: 12/25/18 21:01 Dose: 1 mg Documented by: Spironolactone (Aldactone) 12.5 mg PO DAILY ROBERT Stop: 01/23/19 08:59 Last Admin: 12/26/18 08:58 Dose: 12.5 mg Documented by: Tramadol HCl (Ultram) 50 mg PO Q6H PRN PRN Reason: Pain Stop: 01/22/19 14:44 Last Admin: 12/26/18 04:29 Dose: 50 mg Documented by: (1) Acute on chronic kidney failure Acute renal failure type: unspecified Chronic kidney disease stage: unspecified stage Qualified Code(s): N17.9 - Acute kidney failure, unspecified; N18.9 - Chronic kidney disease, unspecified
[2018-12-26] MEDS: LISINOPRIL 2.5 MG TAB PO SCH (13:38)
--- NOTE | 2018-12-26 13:58 | Pharmacy Report ---
Pharmacy Glycemic Short Note 2 - Date of Service December 26, 2018 - Glycemic Short BSG Results (Last 24 hours): 12/25/18 12/25/18 12/26/18 16:31 20:33 07:55 POC Glucose 154 H 129 H 87 12/26/18 11:43 POC Glucose 147 H OUTPATIENT ANTIDIABETIC REGIMEN: * Novolog per sliding scale (pt reports usually taking ~15 units w/ breakfast, none with lunch, and ~20-30 units with dinner) * Tresiba 160 units Q HS * Victoza 1.8mg SQ daily * A1c = 9.3% 12/25/18 ASSESSMENT: 12/26 * Ms. Camp received 176 units of insulin yesterday (140 of this was basal). This is consistent with total dose given the day prior. * No major changes to causes of insulin resistance * At this point, I'm concerned about the basal making up 75% of the total daily dose, especially with fasting BSG being lower today * Will plan to adjust insulin regimen to more of a 50/50 split, which is physiologically appropriate and will prevent hypoglycemia if po intake reduces 12/25 * Fasting BSG 159 this AM w/ 140 units of Lantus on board as well as 3 units of Novolog correction given overnight. Will continue similar dosing scale today * Post-prandial BSGs well controlled 2 of 3 times yesterday. Will continue the same dosing parameters today, however if pre-lunch elevation seen again today she may require a larger Novolog dose w/ breakfast. PLAN FOR INPATIENT GLYCEMIC CONTROL: * Basal insulin - decrease * Lantus 90 units with dinner * Bolus insulin - loosen CF/CR with breakfast and lunch today but tighten starting w/ dinner * NovoLog per scale ACHS or Q6hrs while NPO * Goal Range: Low 120 mg/dL - High 160 mg/dL * Correction Factor: 12 mg/dL/unit w/ breakfast and lunch today -> then 10 mg/dL/unit * Nutritional / Prandial insulin per carb ratio of 1 unit per 5 grams w/ breakfast and lunch today -> then 3 grams CHO Plan for discharge: (from previous note) * A1c elevated (9.3%); patient's dietary, medication and lifestyle compliance will need to be assessed. If compliance confirmed, an escalation in prandial insulin doses is likely most beneficial for A1c reduction. Pt reported to me that she has been taking the above doses of Tresiba and Victoza for more than a year, however the dose of Novolog was last adjusted a few months ago by Medication Management [facility] at [facility].
[2018-12-26] MEDS: cefTRIAXone SODIUM 2,000 MG in DEXTROSE 5% 50 ML IV SCH (14:20)
[2018-12-26] MEDS ORDERED: INSULIN GLARGINE 100 UNIT/ML VIAL SC SCH (16:30)
[2018-12-26] MEDS: ROPINIROLE HCL 1 MG TABLET PO SCH (20:41)
[2018-12-26] MEDS: NORTRIPTYLINE HCL 25 MG CAP PO SCH (20:41)
[2018-12-26] MEDS: PANTOprazole 40 MG TAB PO SCH (20:42)
[2018-12-27] MEDS: DAPTOmycin 600 MG in SYRINGE 0 ML IV SCH (02:00)
[2018-12-27] MEDS: LEVOTHYROXINE SODIUM 25 MCG TABLET PO SCH (06:22)
[2018-12-27] MEDS: LEVOTHYROXINE SODIUM 200 MCG TABLET PO SCH (06:22)
[2018-12-27] MEDS: TRAMADOL HCL 50 MG TABLET PO PRN (06:23)
[2018-12-27 06:56] LABS: BUN Creatinine Ratio 20.6 (10-20); Calcium 8.7 mg/dl (8.5-10.1); Est GFR (African American) 48.7; Est GFR (Non-African American) 42.1; Potassium 3.9 mmol/L (3.5-5.1)
[2018-12-27] MEDS: MAGNESIUM OXIDE 400 MG TAB PO SCH (08:21)
[2018-12-27] MEDS: GABAPENTIN 300 MG CAP PO SCH ×2 (08:21→13:29)
[2018-12-27] MEDS: PHENAZOPYRIDINE HCL 200 MG TAB PO SCH ×2 (08:21→13:29)
[2018-12-27] MEDS: LISINOPRIL 2.5 MG TAB PO SCH (08:22)
[2018-12-27] MEDS: SPIRONOLACTONE 25 MG TAB PO SCH (08:22)
[2018-12-27] MEDS: METOPROLOL TARTRATE 50 MG TAB PO SCH (08:22)
[2018-12-27] MEDS: DULOXETINE HCL 60 MG CAP PO SCH (08:23)
[2018-12-27] MEDS: INSULIN ASPART 100 UNITS/ML 3 ML PEN SC SCH ×2 (08:28→12:35)
[2018-12-27] MEDS: clonazePAM 0.5 MG TAB PO SCH (08:32)
--- NOTE | 2018-12-27 09:36 | Pharmacy Report ---
Pharmacy Glycemic Short Note 2 - Date of Service December 27, 2018 - Glycemic Short BSG Results (Last 24 hours): 12/26/18 12/26/18 12/26/18 11:43 16:25 20:58 Glucose POC Glucose 147 H 152 H 144 H 12/27/18 12/27/18 06:12 07:43 Glucose 129 H POC Glucose 118 H OUTPATIENT ANTIDIABETIC REGIMEN: * Novolog per sliding scale (pt reports usually taking ~15 units w/ breakfast, none with lunch, and ~20-30 units with dinner) * Tresiba 160 units Q HS * Victoza 1.8mg SQ daily * A1c = 9.3% 12/25/18 ASSESSMENT: 12/27 * Ms. Camp received 125 units of insulin yesterday (90 of this was basal -> after reduction from 140 units the day prior) * BSGs are well controlled with adjustment to insulin regimen to be more reflective of 50/50 basal/bolus split * Only change for today will be to tighten goal range to be consistent with ADA recommendations for non-critically ill patient 12/26 * Ms. Camp received 176 units of insulin yesterday (140 of this was basal). This is consistent with total dose given the day prior. * No major changes to causes of insulin resistance * At this point, I'm concerned about the basal making up 75% of the total daily dose, especially with fasting BSG being lower today * Will plan to adjust insulin regimen to more of a 50/50 split, which is physiologically appropriate and will prevent hypoglycemia if po intake reduces 12/25 * Fasting BSG 159 this AM w/ 140 units of Lantus on board as well as 3 units of Novolog correction given overnight. Will continue similar dosing scale today * Post-prandial BSGs well controlled 2 of 3 times yesterday. Will continue the same dosing parameters today, however if pre-lunch elevation seen again today she may require a larger Novolog dose w/ breakfast. PLAN FOR INPATIENT GLYCEMIC CONTROL: * Basal insulin - no change * Lantus 90 units with dinner * Bolus insulin - tighten goal range only * NovoLog per scale ACHS or Q6hrs while NPO * Goal Range: Low 110 mg/dL - High 140 mg/dL * Correction Factor: 10 mg/dL/unit * Nutritional / Prandial insulin per carb ratio of 1 unit per 3 grams CHO Plan for discharge: (from previous note) * A1c elevated (9.3%); patient's dietary, medication and lifestyle compliance will need to be assessed. If compliance confirmed, an escalation in prandial insulin doses is likely most beneficial for A1c reduction. Pt reported to me that she has been taking the above doses of Tresiba and Victoza for more than a year, however the dose of Novolog was last adjusted a few months ago by Medication Management [facility] at [facility].
--- NOTE | 2018-12-27 13:21 | Infectious Disease Progress Nt ---
Date of Service December 27, 2018 Assessment & Plan (1) UTI (urinary tract infection): continue rocephin for now, follow final ID gnr from 12/23 blood culture, hopefully can change to po abx tomorrow, await final, will need 2 weeks from first negative culture. (2) Positive blood culture: suspect contaminant. 12/25 culture remain negative, will stop dapto. 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 Repeat cultures are negative to date x 2. afebrile. remains on IV rocephin and dapto. tolerating well. overall, continues to improve. denies f/c. no abd pain, no n/v/d. no cp, sob, cough. eating well. asking to go home in am. all remaining ros reviewed and are negative Physical Exam Vital Signs (Past 24 Hours): Last Vital Signs Temp 36.6 C 12/27/18 07:16 Pulse 82 12/27/18 07:16 Resp 16 12/27/18 07:16 BP 101/63 12/27/18 07:16 Pulse Ox 93 12/27/18 07:16 Constitutional: WD/WN, vitals as above Eyes: PERRL, conjunctivae normal, anicteric sclerae ENMT: external ear and nose normal, oropharynx normal Neck: trachea midline, no thyromegaly normal visual inspection Respiratory: normal respiratory effort, lungs clear to auscultation Cardiovascular: RRR, no murmur, no edema Gastrointestinal (Abdomen): normal bowel sounds, soft, nontender, no hepatosplenomegaly Musculoskeletal: no cyanosis or clubbing, extremities motor strength 5/5 Skin: no rashes, warm and dry + rash (left forearm, excoriated, not red) and + excoriations Psychiatric: A+Ox3, euthymic affect Results & Data Laboratory Results Microbiology 12/25/18 11:20 Blood Blood Culture - Preliminary No growth to date. 12/25/18 11:03 Blood Blood Culture - Preliminary No growth to date. 12/23/18 19:12 Blood Blood Culture - Preliminary Gram negative bacilli 12/23/18 19:15 Blood Blood Culture - Final Coag neg staph not lugdunensis 12/23/18 07:00 Urine,Clean Catch Urine Culture - Final Klebsiella pneumoniae
[2018-12-27] MEDS: cefTRIAXone SODIUM 2,000 MG in DEXTROSE 5% 50 ML IV SCH (13:32)
--- NOTE | 2018-12-27 14:45 | Discharge Summary ---
Date of Service December 27, 2018 Admission HPI Per Admitting Provider The patient is a 63-year-old female who presents to the emergency room with reports of left lower quadrant pain associated with nausea, vomiting, headaches. This is been going on intermittently over the past 3 days. The patient also reports diffuse body aches and has a diagnosis of fibromyalgia. She has recently decreased her gabapentin dosing from 300 mg p.o. 3 times daily to 100 mg p.o. 3 times daily on recent discharge from the hospital approximately 2 weeks ago. She has a significant history of diverticulitis and was concerned about this. On arrival to the ER she was afebrile however, her blood pressure went from 117/67-70 . She was bolused approximately 2 L while in the ER with improvement of blood pressure. She was also found to be 84% on room air and was placed on 4 L nasal cannula with improvement to 96% oxygen saturation. Lab work revealed a creatinine of 2.5 to up from discharge which was 1.76 on 12/14. Lasix had been increased at time of discharge from 80 mg daily to 80 mg twice daily. Chest x-ray revealed no change in appearance of the chest with mild cardiomegaly and mild interstitial thickening present. She does not have an elevation in white blood cell count. Admission Exam Per Admitting Provider CONSTITUTIONAL: obese, vitals as above, generally ill-appearing EYES: normal conjuctivae, no scleral icterus ENT: MMM RESPIRATORY: clear to auscultation bilaterally, no crackles, rales or wheezes, normal respiratory effort CARDIOVASCULAR: regular rate and rhythm, S1 and 2 heard without murmurs, gallops or rubs, no JVD, no peripheral edema GASTROINTESTINAL: normal bowel sounds, protuberant abdomen, soft, nontender, nondistended MUSCULOSKELETAL: strength 5/5 throughout, head is normocephalic and atraumatic, neck supple, multiple tenderpoints on chest wall, all down her back, legs and arms. SKIN: warm and dry NEUROLOGIC: CN 2-12 grossly intact, no sensory deficit, normal cognition, no rmal speech PSYCHIATRIC: alert cooperative and oriented to person, place and time. Principal Diagnosis ELSIE UTI c Klebsiella Bacteremia ABD Pain CKD Discharge Exam ROS-No Headache, No Visual Changes, No Nausea, No Vomiting, No Fever, No Chills, No Neck Pain or Stiffness, No Chest Pain, No Palpitations, No SOB, No [place]O, No Cough, No Sputum, No Wheezing, +Abdominal Pain, No Diarrhea, No Hematemesis, No Hemoptysis, No Unexpected Weight Loss, No Flank pain, No Melena, No Hematochezia, No Frequency, No Urgency, No Burning, No Hematuria, No Rashes, No Diaphoresis. Appetite is Normal Physical Exam Gen-AAO x 3, NAD, Afebrile Head-NCAT, EOMI, PERRLA, Anicteric Sclera, No Posterior Pharyngeal Erythema Neck-Supple, No JVD, No Thyromegaly, No Masses, No LAD, No Bruits Lungs-Clear to Auscultation Bilaterally, No Rales, No Rhonchi, No Wheezing, No Crepitus Chest-No S4, +S1, +S2, No S3, No Murmurs, No Rubs, No Gallops, No Ectopy Abdomen-Soft, Bowel Sounds Present, Non Tender, Non Distended, No Hepatomegaly, No Splenomegaly, No Palpable Masses, No Rebound, No Rigidity, No Guarding Musculoskeletal-Full Range of Motion Bilaterally, No CVAT Extremities-No Cyanosis, No Clubbing, No Edema Nuero-Cranial Nerves II-XII grossly intact, Motor WNL, DTRs WNL, Strength WNL, Non Focal Psych-Normal Mood Discharge Data Allergies Allergy/AdvReac Type Severity Reaction Status Date / Time tetanus toxoid, adsorbed Allergy Mild PASSED OUT Verified 12/23/18 06:29 AND GOT SICK WHEN A CHILD codeine Allergy Unknown Hallucinati Verified 12/23/18 06:29 ons heparin Allergy Unknown HIT; FLUID Verified 12/23/18 06:29 IN LUNGS morphine Allergy Unknown VIOLENT Verified 12/23/18 06:29 REACTION-"ALMOST " SWELLING Consultations 12/23/18 08:57 ED Decision to Admit Stat 12/23/18 14:56 Consult Case Management - Discharge Planning Routine 12/25/18 07:00 Consult Infectious Diseases Routine Ordered Studies 12/23/18 07:28 CT abd pelvis wo con Stat Current Diagnoses Hypothyroidism, unspecified (12/23/18) Type 2 diabetes mellitus with diabetic neuropathy, unspecified (12/23/18) Type 2 diabetes mellitus with hyperglycemia (12/23/18) Morbid (severe) obesity due to excess calories (12/23/18) Restless legs syndrome (12/23/18) Obstructive sleep apnea (adult) (pediatric) (12/23/18) Essential (primary) hypertension (12/23/18) Fibromyalgia (12/23/18) Acute kidney failure, unspecified (12/23/18) Chronic kidney disease, unspecified (12/23/18) Urinary tract infection, site not specified (12/23/18) Hypoxemia (12/23/18) Unspecified abdominal pain (12/23/18) Fever, unspecified (12/23/18) Bacteremia (12/23/18) Dependence on other enabling machines and devices (12/23/18) Allergies tetanus toxoid, adsorbed Allergy (Mild, Verified 12/23/18 06:29) PASSED OUT AND GOT SICK WHEN A CHILD codeine Allergy (Unknown, Verified 12/23/18 06:29) Hallucinations heparin Allergy (Unknown, Verified 12/23/18 06:29) HIT; FLUID IN LUNGS morphine Allergy (Unknown, Verified 12/23/18 06:29) VIOLENT REACTION-"ALMOST " SWELLING Height/Weight/Isolation Height 5 ft 5 in Weight 157.8 kg Chemistry 12/27/18 06:12 Sodium 136 Potassium 3.9 Chloride 102 Carbon Dioxide 27 Anion Gap 7.0 BUN 28 H Creatinine 1.34 H Glucose 129 H Microbiology 12/25/18 11:20 Blood Blood Culture - Preliminary No growth to date. 12/25/18 11:03 Blood Blood Culture - Preliminary No growth to date. 12/23/18 19:12 Blood Blood Culture - Preliminary Gram negative bacilli 12/23/18 19:15 Blood Blood Culture - Final Coag neg staph not lugdunensis Hospital Course (1) Positive blood culture: DC home on Omnicef for a 10 day course (2) UTI (urinary tract infection): Likely klebsiella pneumoniae UTI, blood cultures on December 25 are still negative. Previous urine cultures grew out Klebsiella DC home today with Omnicef for 10-day course (3) Acute on chronic kidney failure: Resolved after giving IV fluids and holding diuretics and lisinopril. Resume home regimen (4) HTN (hypertension): Resume lisinopril on discharge (5) Type 2 diabetes, uncontrolled, with neuropathy: Resume outpatient diabetic regimen (6) ELISSA on CPAP: CPAP (7) Morbid obesity: (8) Hypothyroidism: Continue daily Synthroid replacement per home regimen. (9) RLS (restless legs syndrome): Continue ropinirole per home regimen. (10) Fibromyalgia: Continue gabapentin 300 mg p.o. 3 times a day. Ultram as needed breakthrough pain. (11) DVT prophylaxis: home today Total Time Total Time Spent Total Time Spent (In Minutes): 40 minutes Total Time Includes: Examination of the Patient, Discharge Planning, Medication Reconciliation and Communication With Other Providers Discharge Plan Discharge Items Patient Disposition: Home - Self-Care Reason For Visit: ELSIE,PAIN Discharge Diagnosis: UTI with Klebsiella bacteremia Condition: Good Discharge Goals: Improve function Activity: Resume your previous activity Lifting: None and Gradually increase as tolerated Bathing: No limitations Sexual Activity: When tolerated Exercise/Sports: Gradually increase as tolerated Driving/Machine Use: No limitations Weightbearing: Left weightbearing and Right weightbearing Non-emergency contact: Primary Care Provider Call non-emergency contact if: you have any medication questions and your pain is not controlled Follow-up/Referrals: Kevin Whiteside DO [Primary Care Provider] - Diet: Carb Consistent or DM2 and Heart Healthy Addtl Provider Instructions: Routine follow-up Prescriptions: New cefdinir 300 mg capsule 300 mg PO BID 6 Days Qty: 12 RF: 0 Continued clonazepam 0.5 mg Tablet 0.5 mg PO BID RF: 0 levothyroxine 25 mcg Tablet 25 mcg PO DAILY RF: 0 levothyroxine 200 mcg Tablet 200 mcg PO DAILY RF: 0 metoprolol tartrate 25 mg Tablet 50 mg PO BID RF: 0 nortriptyline [Pamelor] 50 mg Capsule 50 mg PO HS RF: 0 omeprazole 20 mg Capsule,Delayed Release(Dr/Ec) 20 mg PO HS RF: 0 ropinirole 1 mg Tablet 1 mg PO HS RF: 0 liraglutide 3 mg/0.5 mL (18 mg/3 mL) Pen Injector 1.8 mg SUBCUT DAILY RF: 0 lisinopril 2.5 mg tablet 2.5 mg PO DAILY RF: 0 Novolog Flexpen U-100 Insulin 100 unit/mL insulin pen 1 sliding scale dose subcut AC RF: 0 Tresiba FlexTouch U-200 200 unit/mL (3 mL) insulin pen 160 units subcut HS RF: 0 cyclobenzaprine 10 mg Tablet 10 mg PO HS PRN (Reason: Muscle Spasm) RF: 0 ergocalciferol (vitamin D2) [Vitamin D2] 50,000 unit Capsule 50,000 unit PO WK RF: 0 spironolactone 25 mg Tablet 12.5 mg PO DAILY 30 Days Qty: 15 RF: 0 gabapentin 100 mg Capsule 100 mg PO TID 30 Days Qty: 90 RF: 0 magnesium oxide 400 mg (241.3 mg magnesium) Tablet 400 mg PO DAILY 30 Days Qty: 30 RF: 0 furosemide 80 mg tablet 80 mg PO BID RF: 0 duloxetine 60 mg capsule,delayed release(DR/EC) 60 mg PO DAILY RF: 0 Stand-Alone Forms: [facility], Work/School Release (Inpt) Discharge Orders: Discharge Order (Routine); Ordered 12/27/18 Ordered By: Uriel Ugarte Admission Data Admit Date/Time: 12/23/18 10:31 Attending Provider: Uriel Ugarte Admit Provider: Shantell Eli Primary Care Provider: Kevin Whiteside Other Providers: Shantell Eli ; Gee Romero Service: Medical
== END 2018-12-27 16:30 | disposition home or self-care (01) | DRG 690 ==
LOC: ED 06:08 → 2E 10:31 → SUATTDRO 10:31 → 2E 13:22 → 2W 23:50 → 4E 12-25 22:48

== ENCOUNTER 2019-02-26 15:50 | Inpatient (IN) ==
[2019-02-26 16:54] LABS: Basophils # (auto) 0.07 K/uL (0-0.2); Basophils % (auto) 0.5 %; Eosinophils # (auto) 0.52 K/uL (0-0.5); Eosinophils % (auto) 3.9 %; Hematocrit (blood only) 42.8 % (37-47); Hemoglobin 14.2 g/dL (12.0-16.0); Immature Granulocytes # (auto) 0.14 K/uL (0.00-0.02); Immature Granulocytes % (auto) 1.1 %; Lymphocytes % (auto) 18.1 %; Mean Corpuscular Hgb Conc 33.2 g/dL (32-36); Mean Corpuscular Volume 92.2 fL (80-100); Mean Platelet Volume 9.9 fL (7.4-10.4); Monocytes # (auto) 0.68 K/uL (0.11-0.59); Monocytes % (auto) 5.1 %; Neutrophils # (auto) 9.43 K/uL (1.4-6.5); Neutrophils % (auto) 71.3 %; Platelet Count 272 K/uL (130-400); RDW Coefficient of Variation 15.1 % (11.5-14.5); RDW Standard Deviation 50.6 fL (36.4-46.3); Red Blood Count 4.64 M/uL (4.2-5.4); White Blood Count 13.24 K/uL (4.8-10.8)
[2019-02-26 16:55] LABS: Appearance Urine Clear (Clear); Bilirubin Urine Negative (Negative); Blood Urine Negative (Negative); Color Urine Yellow; Glucose Urine UA Negative (Negative); Ketones Urine Negative (Negative); Leukocyte Esterase Urine Negative (Negative); Nitrite Urine Negative (Negative); Protein Urine Negative (Negative); Specific Gravity Urine 1.016 (1.000-1.030); Urobilinogen Urine Negative (Negative)
[2019-02-26] MEDS ORDERED: HYDROmorphone INJ 0.5 MG/0.5 ML SYR IV STA ×2 (17:24→22:52)
[2019-02-26] MEDS ORDERED: ONDANSETRON INJ 2 MG/ML 2 ML VIAL IV STA (17:24)
[2019-02-26 17:36] LABS: Albumin Globulin Ratio 0.6 (0.9-2); Albumin Level 3.3 gm/dl (3.4-5.0); BUN Creatinine Ratio 24.3 (10-20); Bilirubin,Total 0.3 mg/dl (0.2-1); Calcium 9.7 mg/dl (8.5-10.1); Creatinine Clr Calc Pharmacy 42.5 ml/min; Globulin 5.1 gm/dl (2.5-4.0); Magnesium 1.6 mg/dl (1.8-2.4); Potassium 4.4 mmol/L (3.5-5.1); Total Protein 8.4 gm/dl (6.4-8.2)
--- NOTE | 2019-02-26 18:53 | XRay Report ---
XR hip RT 2-3V w pelvis CLINICAL HISTORY: fall. Right hip pain. COMPARISON STUDY: None. FINDINGS: No fracture or dislocation within the pelvis or hips. The sacrum appears intact. Soft tissu es are unremarkable. IMPRESSION: No fracture or dislocation within the pelvis or hips. Electronically signed by: Ernesto France M.D. 02/26/2019 6:51 PM
--- NOTE | 2019-02-26 18:55 | XRay Report ---
XR knee RT 3V, XR knee LT 3V CLINICAL HISTORY: fall. Bilateral knee pain. COMPARISON STUDY: None. FINDINGS: No fractures within the right or left knee. No dislocation. There is a right total knee art hroplasty. The hardware appears intact. Mild to moderate osteoarthritis within the medial compartment of the left knee. The bones are osteopenic. No significant knee effusion. Soft tissues are unremarka ble. Mild to moderate osteoarthritis within the left patellofemoral compartment. IMPRESSION: No fractures within the right or left knee. Electronically signed by: Ernesto France M.D. 02/26/2019 6:53 PM
[2019-02-26] MEDS ORDERED: SODIUM CHLORIDE 0.9% 1000ML 500 ML IV ONE (20:49)
[2019-02-26] MEDS ORDERED: SODIUM CHLORIDE 0.9% 1000ML 1,000 ML IV STA (22:52)
--- NOTE | 2019-02-27 00:36 | Emergency Department Note ---
Entered by Misti Jacob acting as a scribe for ED Provider Note CHIEF COMPLAINT: Fall HISTORY OF PRESENT ILLNESS: The patient is a 63 year old female who presents to the Emergency Room with complaints of a fall that occurred 1 hour prior to arrival. The patient states that she dropped a jar and was cleaning it up when she slipped and fell. The patient states that she fell on her left leg and states that she couldn't get up on her own so she called the ambulance. The patient denies receiving any medications in the ambulance prior to arrival. The patient states that she has bilateral knee pain and right hip pain. The patient states that this is her third fall in the past 2 weeks. The patient states that she uses a cane to ambulate normally because she has trouble with her balance. The patient states that she was at her PCP in the morning prior to arrival to manage her low blood pressure. The patient states that her PCP increased her ropinirole at her appointment this morning. The patient states that she has a history of fibromyalgia. Pt denies LOC, headache, fevers, chills, diaphoresis, visual changes, neck pain, chest pain, breathing difficulties, nausea, vomiting, abdominal pain, back pain, melena, hematochezia, urinary symptoms, numbness, focal weakness, lymphadenopathy, rash, or other complaints. REVIEW OF SYSTEMS: See HPI for pertinent positives and negatives. A total of ten systems were reviewed and were otherwise negative. PMHx/PSHx: Acute on chronic kidney failure Acute on chronic diastolic heaart failure CKD (chronic kidney disease), stage 3 CHF (congestive heart failure) Hypomagnesemia DVT prophylaxis Type 2 diabetes, uncontrolled, with neurpathy S/P cholecystectomy S/P total right knee replacement ELISSA on CPAP Hypertension Hyperlipidemia DVT (deep vein thrombosis) Fibromyalgia Hypomagnesemia Right knee DJD SOCIAL HISTORY: Patient lives at home. PHYSICAL EXAM: GENERAL: Awake, alert, well-appearing, in no distress. HENT: Normocephalic, atraumatic. Oropharynx unremarkable. EYES: PERRL. Normal conjunctiva. Sclera non-icteric. NECK: Inspection normal. Non-tender. Supple. No nuchal rigidity. FROM. No masses. RESPIRATORY: Clear to auscultation. No wheezes. No rales. Normal respiratory effort. CARDIAC: Normal rate. Normal rhythm. No murmurs. No rubs. Extremities warm and well perfused. Pulses equal. No JVD. GI: Soft, non-distended. No tenderness to palpation. No rebound or guarding. No masses. RECTAL: Deferred. MUSCULOSKELETAL: Atraumatic. Chest examination reveals no tenderness. The back is symmetrical on inspection without obvious abnormality. There is no CVA tenderness to palpation. No joint edema. LOWER EXTREMITIES: Calves are equal size bilaterally. Tenderness about the right knee joint, ROM limited. No edema. No discoloration. NEURO: Normal sensorium. No sensory or motor deficits noted. SKIN: No rash or jaundice noted. EMERGENCY DEPARTMENT COURSE: 1557: Past medical records reviewed. The patient was evaluated in room C2B, and a complete history and physical examination were performed. 1840: I checked on the patient and updated her on her results. The patient states that is feeling better. 2019: I checked on the patient and updated her on her results. 2249: Updated the patient. Orthostatic testing performed and was abnormal. 0: Consultation made with internal medicine for further evaluation and management. Patient was agreeable to stay in the hospital. MEDICAL DECISION MAKING: Prior records/ancillary studies reviewed. Outpatient records obtained did not reveal any evidence of hypotension. The patient did have a mild elevation of her heart rate noted. Nursing notes reviewed and agree them. Additional history obtained from the patient's brother who states that she has been dizzy and generally weak over the last week.. The patient's history was concerning for a fall, leg injury, and weakness. Differential diagnosis: Etiologies such as contusion, fracture, sprain, strain, metabolic, infection, hypo/hyperglycemia, electrolyte abnormalities, cardiac sources, intracerebral event, toxicologic, neurologic, as well as others were entertained. Physical examination: As above. Uncomfortable. No gross deformities. ER treatment provided: IV Lock IV Dilaudid IV saline On reassessment the patient felt better. Diagnostics interpretation by me: The labs revealed mild leukocytosis on CBC. Chemistry panel did reveal ELSIE with a bump of her creatinine from 1.3-2.06. The patient was mildly hyperglycemic at 256. The patient's magnesium is mildly low. Urinalysis is negative. Imaging studies: X-ray imaging negative for fracture of the knees bilaterally as well as the right hip. Chest imaging reveals chronic changes without evidence of pneumothor ax, free air, or infiltrate. The patient is mildly dehydrated. She has positive orthostatic vital signs after blood pressure testing. She has not been doing well over the last few weeks but has fallen several times recently. I discussed further management in the hospital. The patient was in agreement. I gave my usual and customary discussion regarding this issue. Consultation: A consultation was placed with the hospitalist. The case was discussed and diagnostics were reviewed. The patient was evaluated in the ER for further treatment. IMPRESSION: Right knee pain Right hip pain Orthostasis PLAN: Admitted The scribe's documentation has been prepared under my direction and personally reviewed by me in its entirety. I confirm that the note above accurately reflects all work, treatment, procedures, and medical decision making performed by me. Impression & Plan Knee pain, right, Hip pain, right, Orthostasis Past Med/Surg History Social History Preferred Language: Omani Communication Ability: Effective Beliefs That Will Affect Care: None Current Living Situation: Alone Feels Safe at Home: Yes Smoking Status: Former smoker Tobacco Type: cigarettes Cigarettes Per Day: 15 pack year hx Second Hand Exposure: No Hx Alcohol Use: No Hx Substance Use: No Results & Data Vital Signs Vital Signs - 24 hr 02/26/19 15:59 02/26/19 17:31 02/26/19 20:02 Temperature 36.5 C Temperature Source Oral Sepsis Recent Fever Within 48 Hours No Sepsis Action Taken by Nursing No Action Required Pulse Rate - Lying Pulse Rate - Sitting Pulse Rate - Standing Pulse Rate 108 H Pulse Rate [Apical] 100 H Respiratory Rate 22 17 Respiratory Effort / Characteristics Non-Labored Spontaneous Respiratory Depth Normal Respiratory Pattern Regular Blood Pressure - Lying Blood Pressure - Sitting Blood Pressure- Standing Blood Pressure 100/87 Blood Pressure [Right Arm] 93/64 L Blood Pressure Mean 91 Blood Pressure Mean [Right Arm] 73 Blood Pressure Position [Right Arm] Pulse Oximetry 91 90 93 Oxygen Delivery Method Room Air Room Air Room Air Oxygen Flow Rate 02/26/19 21:12 02/26/19 22:45 02/26/19 23:30 Temperature Temperature Source Sepsis Recent Fever Within 48 Hours Sepsis Action Taken by Nursing Pulse Rate - Lying 107 H Pulse Rate - Sitting 113 H Pulse Rate - Standing 117 H Pulse Rate Pulse Rate [Apical] 112 H Respiratory Rate 20 Respiratory Effort / Characteristics Non-Labored Spontaneous Respiratory Depth Normal Respiratory Pattern Regular Blood Pressure - Lying 142/99 H Blood Pressure - Sitting 153/66 H Blood Pressure- Standing 94/43 L Blood Pressure Blood Pressure [Right Arm] 178/81 H Blood Pressure Mean Blood Pressure Mean [Right Arm] 113 Blood Pressure Position [Right Arm] Lying Pulse Oximetry 91 87 L Oxygen Delivery Method Room Air Room Air Oxygen Flow Rate 02/26/19 23:58 02/27/19 00:26 Temperature Temperature Source Sepsis Recent Fever Within 48 Hours Sepsis Action Taken by Nursing Pulse Rate - Lying Pulse Rate - Sitting Pulse Rate - Standing Pulse Rate Pulse Rate [Apical] 105 H Respiratory Rate 15 Respiratory Effort / Characteristics Non-Labored Spontaneous Respiratory Depth Normal Respiratory Pattern Regular Blood Pressure - Lying Blood Pressure - Sitting Blood Pressure- Standing Blood Pressure Blood Pressure [Right Arm] 123/52 L Blood Pressure Mean Blood Pressure Mean [Right Arm] 75 Blood Pressure Position [Right Arm] Lying Pulse Oximetry 93 95 Oxygen Delivery Method Nasal Cannula Nasal Cannula Oxygen Flow Rate 2 2 Home Medications Current Medication List: was personally reviewed by me Laboratory Data Attestation: I reviewed the patient's lab results. Result diagrams: 02/26/19 16:46 02/26/19 16:46 Lab Results 02/26/19 02/26/19 02/26/19 Range/Units 16:46 16:46 16:46 WBC 13.24 H (4.8-10.8) K/uL RBC 4.64 (4.2-5.4) M/uL Hgb 14.2 (12.0-16.0) g/dL Hct 42.8 (37-47) % MCV 92.2 (80-100) fL MCH 30.6 (25-34) pg MCHC 33.2 (32-36) g/dL RDW Std Deviation 50.6 H (36.4-46.3) fL RDW Coeff of Adolfo 15.1 H (11.5-14.5) % Plt Count 272 (130-400) K/uL MPV 9.9 (7.4-10.4) fL Immature Gran % (Auto) 1.1 % Neut % (Auto) 71.3 % Lymph % (Auto) 18.1 % [place] % (Auto) 5.1 % Eos % (Auto) 3.9 % Baso % (Auto) 0.5 % Immature Gran # (Auto) 0.14 H (0.00-0.02) K/uL Neut # (Auto) 9.43 H (1.4-6.5) K/uL Lymph # (Auto) 2.40 (1.2-3.4) K/uL [place] # (Auto) 0.68 H (0.11-0.59) K/uL Eos # (Auto) 0.52 H (0-0.5) K/uL Baso # (Auto) 0.07 (0-0.2) K/uL Sodium 137 (136-145) mmol/L Potassium 4.4 (3.5-5.1) mmol/L Chloride 100 (98-107) mmol/L Carbon Dioxide 27 (21-32) mmol/L Anion Gap 10.0 (3-11) BUN 50 H (7-18) mg/dl Creatinine 2.06 H (0.6-1.2) mg/dl Est Cr Clr Drug Dosing 42.5 ml/min Est GFR ( Amer) 29.0 Est GFR (Non-Af Amer) 25.0 BUN/Creatinine Ratio 24.3 H (10-20) Glucose 256 H (70-99) mg/dl POC Glucose (70-99) Calcium 9.7 (8.5-10.1) mg/dl Magnesium 1.6 L (1.8-2.4) mg/dl Total Bilirubin 0.3 (0.2-1) mg/dl AST 26 (15-37) U/L ALT 29 (12-78) U/L Alkaline Phosphatase 85 (45-117) U/L Total Protein 8.4 H (6.4-8.2) gm/dl Albumin 3.3 L (3.4-5.0) gm/dl Globulin 5.1 H (2.5-4.0) gm/dl Albumin/Globulin Ratio 0.6 L (0.9-2) TSH 1.960 (0.300-4.500) uIu/ml Specimen Hemolysis Urine Color Yellow Urine Appearance Clear (Clear) Urine pH 5.0 (4.5-7.5) Ur Specific [place] 1.016 (1.000-1.030) Urine Protein Negative (Negative) Urine Glucose (UA) Negative (Negative) Urine Ketones Negative (Negative) Urine Blood Negative (Negative) Urine Nitrite Negative (Negative) Urine Bilirubin Negative (Negative) Urine Urobilinogen Negative (Negative) Ur Leukocyte Esterase Negative (Negative) 02/26/19 Range/Units 23:10 WBC (4.8-10.8) K/uL RBC (4.2-5.4) M/uL Hgb (12.0-16.0) g/dL Hct (37-47) % MCV (80-100) fL MCH (25-34) pg MCHC (32-36) g/dL RDW Std Deviation (36.4-46.3) fL RDW Coeff of Adolfo (11.5-14.5) % Plt Count (130-400) K/uL MPV (7.4-10.4) fL Immature Gran % (Auto) % Neut % (Auto) % Lymph % (Auto) % [place] % (Auto) % Eos % (Auto) % Baso % (Auto) % Immature Gran # (Auto) (0.00-0.02) K/uL Neut # (Auto) (1.4-6.5) K/uL Lymph # (Auto) (1.2-3.4) K/uL [place] # (Auto) (0.11-0.59) K/uL Eos # (Auto) (0-0.5) K/uL Baso # (Auto) (0-0.2) K/uL Sodium (136-145) mmol/L Potassium (3.5-5.1) mmol/L Chloride (98-107) mmol/L Carbon Dioxide (21-32) mmol/L Anion Gap (3-11) BUN (7-18) mg/dl Creatinine (0.6-1.2) mg/dl Est Cr Clr Drug Dosing ml/min Est GFR ( Amer) Est GFR (Non-Af Amer) BUN/Creatinine Ratio (10-20) Glucose (70-99) mg/dl POC Glucose 211 H (70-99) Calcium (8.5-10.1) mg/dl Magnesium (1.8-2.4) mg/dl Total Bilirubin (0.2-1) mg/dl AST (15-37) U/L ALT (12-78) U/L Alkaline Phosphatase (45-117) U/L Total Protein (6.4-8.2) gm/dl Albumin (3.4-5.0) gm/dl Globulin (2.5-4.0) gm/dl Albumin/Globulin Ratio (0.9-2) TSH (0.300-4.500) uIu/ml Specimen Hemolysis Urine Color Urine Appearance (Clear) Urine pH (4.5-7.5) Ur Specific [place] (1.000-1.030) Urine Protein (Negative) Urine Glucose (UA) (Negative) Urine Ketones (Negative) Urine Blood (Negative) Urine Nitrite (Negative) Urine Bilirubin (Negative) Urine Urobilinogen (Negative) Ur Leukocyte Esterase (Negative) Administered Medications Sodium Chloride (Nss 1000ml) 1,000 mls @ 125 mls/hr IV .Q8H STA Stop: 02/27/19 06:51 Last Admin: 02/26/19 23:21 Dose: 125 mls/hr Documented by: [id number] Discontinued Medications Hydromorphone HCl (Dilaudid) 0.5 mg IV NOW STA Stop: 02/26/19 17:25 Last Admin: 02/26/19 17:29 Dose: 0.5 mg Documented by: [id number] Hydromorphone HCl (Dilaudid) 0.5 mg IV NOW STA Stop: 02/26/19 22:53 Last Admin: 02/26/19 22:57 Dose: 0.5 mg Documented by: [id number] Sodium Chloride (Nss 1000ml) 500 mls @ 999 mls/hr IV .Q31M ONE Stop: 02/26/19 21:19 Last Infusion: 02/26/19 21:57 Dose: 0 mls/hr Documented by: [id number] Admin: 02/26/19 21:14 Dose: 999 mls/hr Documented by: [id number] Ondansetron HCl (Zofran) 4 mg IV NOW STA Stop: 02/26/19 17:25 Last Admin: 02/26/19 17:29 Dose: 4 mg Documented by: [id number] Imaging Data Radiologist's Impression: Radiology results as stated below per my review and the radiologist's interpretation: XR hip RT 2-3V w pelvis CLINICAL HISTORY: fall. Right hip pain. COMPARISON STUDY: None. FINDINGS: No fracture or dislocation within the pelvis or hips. The sacrum appears intact. Soft tissues are unremarkable. IMPRESSION: No fracture or dislocation within the pelvis or hips. Electronically signed by: Ernesto France M.D. 02/26/2019 6:51 PM XR knee RT 3V, XR knee LT 3V CLINICAL HISTORY: fall. Bilateral knee pain. COMPARISON STUDY: None. FINDINGS: No fractures within the right or left knee. No dislocation. There is a right total knee arthroplasty. The hardware appears intact. Mild to moderate osteoarthritis within the medial compartment of the left knee. The bones are osteopenic. No significant knee effusion. Soft tissues are unremarkable. Mild to moderate osteoarthritis within the left patellofemoral compartment. IMPRESSION: No fractures within the right or left knee. Electronically signed by: Ernesto France M.D. 02/26/2019 6:53 PM XR knee RT 3V, XR knee LT 3V CLINICAL HISTORY: fall. Bilateral knee pain. COMPARISON STUDY: None. FINDINGS: No fractures within the right or left knee. No dislocation. There is a right total knee arthroplasty. The hardware appears intact. Mild to moderate osteoarthritis within the medial compartment of the left knee. The bones are osteopenic. No significant knee effusion. Soft tissues are unremarkable. Mild to moderate osteoarthritis within the left patellofemoral compartment. IMPRESSION: No fractures within the right or left knee. Electronically signed by: Ernesto France M.D. 02/26/2019 6:53 PM ECG Data Attestation: I personally reviewed and interpreted this ECG as follows: Indication: other (+fall) Rate (beats per minute): 106 Rhythm: sinus tachycardia Findings: no PAC, no PVC, no ST depression and no ST elevation Blood Pressure Blood Pressure Findings: Elevated blood pressure Blood Pressure Disposition: elevated BP felt to be situational Discharge Plan Visit Data Chief Complaint: Fall ED Provider: Humberto Turpin Discharge Problem: Knee pain, right, Hip pain, right, Orthostasis Forms Stand Alone Forms: My [facility] [employer] Prescriptions Prescriptions: No Action clonazepam 0.5 mg Tablet 0.5 mg PO BID RF: 0 levothyroxine 25 mcg Tablet 25 mcg PO DAILY RF: 0 levothyroxine 200 mcg Tablet 200 mcg PO DAILY RF: 0 metoprolol tartrate 25 mg Tablet 12.5 mg PO BID RF: 0 nortriptyline [Pamelor] 50 mg Capsule 50 mg PO HS RF: 0 omeprazole 20 mg Capsule,Delayed Release(Dr/Ec) 20 mg PO HS RF: 0 liraglutide 3 mg/0.5 mL (18 mg/3 mL) Pen Injector 1.8 mg SUBCUT QPM RF: 0 lisinopril 2.5 mg tablet 2.5 mg PO DAILY RF: 0 Novolog Flexpen U-100 Insulin 100 unit/mL insulin pen 1 sliding scale dose subcut AC RF: 0 Tresiba FlexTouch U-200 200 unit/mL (3 mL) insulin pen 160 units subcut HS RF: 0 cyclobenzaprine 10 mg Tablet 10 mg PO HS PRN (Reason: Muscle Spasm) RF: 0 ergocalciferol (vitamin D2) [Vitamin D2] 50,000 unit Capsule 50,000 unit PO WK RF: 0 furosemide 80 mg tablet 80 mg PO BID RF: 0 duloxetine 60 mg capsule,delayed release(DR/EC) 60 mg PO DAILY RF: 0 ropinirole [Requip] 4 mg Tablet 2 mg PO TID RF: 0 gabapentin 300 mg 300 mg PO TID RF: 0 spironolactone 25 mg 12.5 mg PO DAILY RF: 0 Mag 64 64 mg 64 mg PO BID RF: 0 Discharge Problem: Knee pain, right Qualifiers: Chronicity: acute Qualified Code(s): M25.561 - Pain in right knee The scribe's documentation has been prepared under my direction and personally reviewed by me in its entirety. I confirm that the note above accurately reflects all work, treatment, procedures, and medical decision making performed by me.
[2019-02-27] MEDS ORDERED: NITROGLYCERIN SL 0.4 MG/TAB TAB SL PRN (01:58)
[2019-02-27] MEDS ORDERED: PHARMACY GLYCEMIC MGMT CONSULT PRN (02:16)
[2019-02-27] MEDS: SODIUM CHLORIDE 0.9% 1000ML 1,000 ML IV SCH ×3 (02:19→22:39)
[2019-02-27] MEDS ORDERED: INSULIN GLARGINE 100 UNIT/ML VIAL SC SCH (02:45)
[2019-02-27] MEDS: INSULIN ASPART 100 UNITS/ML 3 ML PEN SC SCH ×5 (02:46→20:51)
[2019-02-27] MEDS: CYCLOBENZAPRINE HCL 10 MG TAB PO PRN (02:46)
[2019-02-27] MEDS: TRAMADOL HCL 50 MG TABLET PO PRN ×2 (04:13→13:40)
[2019-02-27] MEDS: LEVOTHYROXINE SODIUM 25 MCG TABLET PO SCH (05:37)
[2019-02-27] MEDS: LEVOTHYROXINE SODIUM 200 MCG TABLET PO SCH (05:37)
--- NOTE | 2019-02-27 06:24 | XRay Report ---
XR chest 1V portable HISTORY: 63 years-old Female hypotension acute hypotension COMPARISON: Chest radiograph 12/23/2018 TECHNIQUE: Portable AP view of the chest FINDINGS: Cardiac silhouette is enlarged, unchanged. Reticular interstitial opacities are redemonstrated. There is no pneumothorax, pleural effusion or focal airspace consolidation. Degenerative changes of the sh oulders and spine. Surgical clips project over the upper chest at the level of the clavicular heads a nd lower neck. IMPRESSION: Stable exam without acute process identified. The above report was generated using voice recognition software. It may contain grammatical, syntax o r spelling errors. Electronically signed by: Ernesto Gilliland M.D. 02/27/2019 6:22 AM
[2019-02-27 07:32] LABS: Basophils # (auto) 0.06 K/uL (0-0.2); Basophils % (auto) 0.6 %; Eosinophils # (auto) 0.56 K/uL (0-0.5); Eosinophils % (auto) 5.3 %; Hematocrit (blood only) 38.5 % (37-47); Hemoglobin 12.5 g/dL (12.0-16.0); Immature Granulocytes # (auto) 0.07 K/uL (0.00-0.02); Immature Granulocytes % (auto) 0.7 %; Lymphocytes # (auto) 2.87 K/uL (1.2-3.4); Lymphocytes % (auto) 27.3 %; Mean Corpuscular Hgb Conc 32.5 g/dL (32-36); Mean Corpuscular Volume 92.5 fL (80-100); Mean Platelet Volume 9.6 fL (7.4-10.4); Monocytes # (auto) 0.53 K/uL (0.11-0.59); Neutrophils # (auto) 6.41 K/uL (1.4-6.5); Neutrophils % (auto) 61.1 %; Platelet Count 241 K/uL (130-400); RDW Coefficient of Variation 15.3 % (11.5-14.5); RDW Standard Deviation 51.6 fL (36.4-46.3); Red Blood Count 4.16 M/uL (4.2-5.4)
[2019-02-27] MEDS: MAGNESIUM CHLORIDE 64MG DELAYED REL TAB PO SCH ×2 (07:47→20:47)
[2019-02-27] MEDS: GABAPENTIN 300 MG CAP PO SCH ×3 (07:47→20:47)
[2019-02-27] MEDS: METOPROLOL TARTRATE 25 MG TAB PO SCH ×2 (07:47→20:47)
[2019-02-27] MEDS: DULOXETINE HCL 60 MG CAP PO SCH (07:48)
[2019-02-27] MEDS: ROPINIROLE HCL 1 MG TABLET PO SCH ×3 (07:48→20:47)
--- NOTE | 2019-02-27 07:58 | History and Physical Report ---
DATE OF ADMISSION: 02/27/2019 CHIEF COMPLAINT: Fall and found to have orthostatic hypotension. HISTORY OF PRESENT ILLNESS: This is a 63-year-old female with past medical history significant for type 2 diabetes, hyperlipidemia, hypothyroidism, nocturnal hypoxia, obstructive sleep apnea, on CPAP, history of pulmonary embolism status post Morris filter, chronic diastolic congestive heart failure, venous insufficiency, hypertension, morbid obesity, GERD, fibromyalgia, restless leg syndrome, generalized anxiety disorder, depression, statin intolerance, who lives alone, walks with a cane, came here because she fell in the kitchen. She said both the legs went other way and she fell down without losing consciousness.. Last 2 weeks she has had some dizziness, whenever she gets up. She also saw her family doctor today and Requip med doses was increased for the rest of leg syndrome. Also her sugars running are high. She has some blurred visions. Her family doctor thought her blurred vision from uncontrolled blood sugars and she has an appointment for management of her insulin regimen. Complains of pain in the belly and hip region where she fell. She says she also fell recently. Currently resting comfortably. Vitals stable in the ER, initial blood pressure was low but later blood pressure came up, but been on standing the blood pressure dropped again, having significant orthostatic hypotension, getting IV fluids in the ER. Has some headache, had some blurred visions, no sore throat. Appetite is okay, eating fine. No difficulty swallowing. No chest pain, no shortness of breath, no cough, no fever, no chills, no nausea, no abdominal pain. Normal bowel and bladder movements. No blood in the stools, no black stools, no hematuria, no burning, micturition, no rash. ALLERGIES: TETANUS TOXOID, CODEINE, HEPARIN, MORPHINE. PAST MEDICAL HISTORY: As mentioned above. PAST SURGICAL HISTORY: Right total knee arthroplasty, colonoscopy, tracheostomy, left knee cartilage, knee arthroscopy, gastrostomy, thyroidectomy, cholecystectomy, incisional hernia repair, perfortaed right colon with colostomy, IVC filter. MEDICATIONS: The patient is on Requip 2 mg p.o. t.i.d., Lopressor 12.5 mg p.o. b.i.d., levothyroxine 225 mcg daily, Lasix 80 mg p.o. b.i.d., insulin sliding scale, vitamin D 50,000 units 1 capsule once a week, Aldactone 12.5 mg p.o. daily, gabapentin 300 mg p.o. t.i.d., Cymbalta 60 mg p.o. daily, tramadol 50 mg p.o. q. 6 hours p.r.n., insulin degludec 160 units subcutaneous once daily, lisinopril 2.5 mg p.o. daily, Klonopin 0.5 mg p.o. b.i.d., Flexeril 10 mg p.o. at bedtime p.r.n., Victoza 1.8 mg under skin daily, nortriptyline 50 mg p.o. at bedtime, magnesium 64 mg p.o. b.i.d., Colace 100 mg p.o. b.i.d. p.r.n., oxygen 4 liters through CPAP during sleep, Prilosec 20 mg p.o. daily. FAMILY HISTORY: Significant for father had of lung cancer at age of 74. Mother of liver cancer at age of 45. Paternal grandfather had bone cancer, in his 70s. Paternal grandmother has diabetes. Brother had heart disorder, at age of 45 of possible tumor. SOCIAL HISTORY: Single, per family close by. Quit smoking in 1996. Smoked 1 pack a day for 15 years. Alcohol rare. No drug use. REVIEW OF SYMPTOMS: As per HPI. Rest of review of symptoms negative. PHYSICAL EXAMINATION: GENERAL: The patient is morbidly obese, not in acute distress. VITAL SIGNS: Temperature 36.5, pulse 105, respiratory rate 15, blood pressure 93/64, oxygen 95% on 2 liters. HEENT: No pallor, no icterus. Pupils equal, round, and reactive to light. NECK: No JVD, no neck masses, no carotid bruits. CARDIOVASCULAR: S1, S2 heard, regular rate and rhythm, no murmur, no gallop. RESPIRATORY SYSTEM: Clear to auscultation bilaterally. No wheezing, no crackles. ABDOMEN: Soft, bowel sounds present. Nontender. No distention. CENTRAL NERVOUS SYSTEM: Cranial nerves II-XII was grossly intact. Nonfocal. EXTREMITIES: No edema, no erythema. LABS: WBC 13.2, hemoglobin 14.2, hematocrit 42.8, platelets 272. Sodium 137, potassium 4.4, chloride 100, bicarbonate 27, BUN 50, creatinine 2.06, serum glucose 256, magnesium 1.6, total bilirubin 0.3, AST 26, ALT 28, alkaline phosphatase 85. TSH 1.9. Urinalysis negative. Bilateral knee x-ray, no acute findings. Hip and pelvic x-ray, no acute findings. Chest x-ray, we will study. EKG showing sinus tachycardia 106 no significant change from previous EKG. ASSESSMENT AND PLAN: This is a 63-year-old female who presents with fall and found to have orthostatic hypotension. 1. Fall: Mostly secondary to orthostatic hypotension. PT and OT when stable. Observe in the Med/Surg tele. 2. Orthostatic hypotension: Could be from dehydration. The patient is on Lasix 80 mg b.i.d. and Aldactone 12.5 mg p.o. daily. We will hold the diuretics. She may be getting dehydrated also from the high blood sugars.Will give IV fluids. Orthostatics q. 8 hours and monitor in Med/[place] tele. 3. Acute kidney injury and chronic kidney disease stage III: Baseline creatinine 1.6, presents with creatinine of 2. Holding the lisinopril and diuretics. Getting fluids . Will monitor the labs. 4. History of diabetes: Seems to be poorly controlled. Holding oral home medication of Victoza. We will place on insulin sliding scale, continue insulin degludec. Consult pharmacy for further recommendations. Follow hemoglobin A1c levels. Follow the blood sugars. 5. Obstructive sleep apnea, nocturnal hypoxia: Uses CPAP at bedtime, 6. Diastolic congestive heart failure: Volume stable. We will holding the diuretics, we were getting fluids, monitor for volume overload. 7. Hypertension. Continue Lopressor 12.5 b.i.d. Holding lisinopril and holding the diuretics. Was hypotensive when she came in and also has orthostatic hypotension, we will monitor the blood pressure. 8. Hypothyroidism. Continue Synthroid. 9. Morbid obesity: Needs counseling. 10. Restless leg syndrome: Continue Requip. 11. Depression. Continue Cymbalta, Klonopin and nortriptyline. 12. Gastroesophageal reflux disease. Continue PPI. 13. History of pulmonary embolism: Not on any anticoagulation status post IVC filter. 14. Deep venous thrombosis prophylaxis, sequential compression devices for now, heparin subcutaneously. 7. Disposition: Observe in Med/Surg tele, PT and OT prior to discharge. Social Service to help with discharge planning. HEIDI
[2019-02-27 08:03] LABS: BUN Creatinine Ratio 26.6 (10-20); Calcium 8.8 mg/dl (8.5-10.1); Creatinine Clr Calc Pharmacy 52.5 ml/min; Est GFR (African American) 38.2; Est GFR (Non-African American) 32.9; Magnesium 1.6 mg/dl (1.8-2.4); Potassium 3.9 mmol/L (3.5-5.1)
[2019-02-27] MEDS: clonazePAM 0.5 MG TAB PO SCH ×2 (09:22→20:59)
[2019-02-27] MEDS: ONDANSETRON INJ 2 MG/ML 2 ML VIAL IV PRN ×3 (09:23→23:20)
[2019-02-27 09:50] LABS: Estimated Average Glucose 269 mg/dl
--- NOTE | 2019-02-27 11:47 | Pharmacy Report ---
Glycemic Control Consultation - Date of Service February 27, 2019 - Scope Scope: Glycemic Pharmacist consulted by Dr Montes on 02/27/19 for glycemic control and to write orders per [facility] inpatient glycemic control protocol - Objective Weight: 154.9 kg Accuchecks BSG (last 24hrs): 02/26/19 02/26/19 02/27/19 16:46 23:10 02:02 Glucose 256 H POC Glucose 211 H 259 H 02/27/19 02/27/19 07:10 07:46 Glucose 228 H POC Glucose 198 H Laboratory Data (last 24hrs): 02/26/19 02/27/19 16:46 07:10 Potassium 4.4 3.9 Carbon Dioxide 27 27 Anion Gap 10.0 9.0 Creatinine 2.06 H 1.64 H D Est Cr Clr Drug Dosing 42.5 52.5 HbA1c: 11.0 % (4.5-5.6) H 02/27/19 07:10 - Recent Pertinent Medications Outpatient Anti-diabetic Regimen: * Tresiba 160 units HS;Novolog SS; Liraglutide 1.8 mg qAM * A1c = 11 % 02/27/19 The patient is currently receiving: * Basal insulin: Lantus 120 units hs * Correctional Insulin: Novolog Correction per scale ACHS Goal Range: Low 110 mg/dL - High 140 mg/dL Correction Factor: 15 mg/dL/unit * Prandial insulin: Per carb ratio of 1 unit per 5 grams CHO consumed * Oral Agents: Risk Factors for Insulin Resistance: * Diet: t2DM - Assessment & Plan Assessment & Plan: ASSESSMENT: * 63 year old admitted after fall, patient reports she has been having dizziness, high blood sugars * BSGs elevated on admission in 200s, A1c 11% this is increased from 9.3% in December of this year, Indicates poor outpatient control/?compliance * BSG down to 198 this morning after 120 units of lantus ~0245 * On previous admission patient was requiring between 125-183 units, patient basal heavy, will adjust to closer to 50/50 basal/bolus in hospital * Therefore will set scale for this evening up to 120 units and tighten novolog parameters to weight stress of 3 PLAN FOR INPATIENT GLYCEMIC CONTROL: * Basal insulin * Lantus scale * <140: 90 units * 140-180: 100 units * 181-230: 110 units * >230: 120 units * Bolus insulin * NovoLog per scale ACHS or Q6hrs while NPO * Goal Range: Low 110 mg/dL - High 160 mg/dL * Correction Factor: 10 mg/dL/unit * Nutritional / Prandial insulin per carb ratio of 1 unit per 3 grams CHO consumed * Please note that the plan above was derived based on current level of insulin resistance and hospital stress. These recommendations are appropriate for inpatient admission only. Plan of care upon discharge will need to be reassessed to avoid potential outpatient hypo/hyperglycemia. Thank you.
[2019-02-27] MEDS: NORTRIPTYLINE HCL 25 MG CAP PO SCH (20:47)
[2019-02-27] MEDS: PANTOprazole 40 MG TAB PO SCH (20:47)
[2019-02-27] MEDS: INSULIN GLARGINE 100 UNIT/ML VIAL SC SCH (20:50)
[2019-02-27] MEDS ORDERED: MICONAZOLE NITRATE POWDER 43 GM EXT PRN (21:04)
[2019-02-27] MEDS: ACETAMINOPHEN 325 MG TAB PO PRN (23:27)
[2019-02-28] MEDS: ONDANSETRON INJ 2 MG/ML 2 ML VIAL IV PRN ×2 (04:34→11:53)
[2019-02-28] MEDS: LEVOTHYROXINE SODIUM 25 MCG TABLET PO SCH (06:19)
[2019-02-28] MEDS: LEVOTHYROXINE SODIUM 200 MCG TABLET PO SCH (06:19)
[2019-02-28] MEDS: ACETAMINOPHEN 325 MG TAB PO PRN (06:22)
[2019-02-28] MEDS: TRAMADOL HCL 50 MG TABLET PO PRN ×3 (07:04→18:27)
[2019-02-28] MEDS: clonazePAM 0.5 MG TAB PO SCH ×2 (07:34→20:44)
[2019-02-28] MEDS: METOPROLOL TARTRATE 25 MG TAB PO SCH ×2 (07:34→20:46)
[2019-02-28] MEDS: DULOXETINE HCL 60 MG CAP PO SCH (07:34)
[2019-02-28] MEDS: MAGNESIUM CHLORIDE 64MG DELAYED REL TAB PO SCH ×2 (07:34→20:48)
[2019-02-28] MEDS: GABAPENTIN 300 MG CAP PO SCH ×3 (07:34→20:48)
[2019-02-28] MEDS: ROPINIROLE HCL 1 MG TABLET PO SCH ×3 (07:34→20:47)
[2019-02-28] MEDS: INSULIN ASPART 100 UNITS/ML 3 ML PEN SC SCH ×4 (08:16→20:46)
[2019-02-28] MEDS ORDERED: INSULIN GLARGINE 100 UNIT/ML VIAL SC ONE (08:45)
[2019-02-28] MEDS: SODIUM CHLORIDE 0.9% 1000ML 1,000 ML IV SCH ×2 (08:50→19:10)
[2019-02-28 09:33] LABS: BUN Creatinine Ratio 19.2 (10-20); Calcium 8.5 mg/dl (8.5-10.1); Creatinine Clr Calc Pharmacy 60.7 ml/min; Est GFR (African American) 45.4; Est GFR (Non-African American) 39.2; Magnesium 1.7 mg/dl (1.8-2.4); Potassium 4.2 mmol/L (3.5-5.1)
--- NOTE | 2019-02-28 12:59 | Pharmacy Report ---
Pharmacy Glycemic Short Note 2 - Date of Service February 28, 2019 - Glycemic Short BSG Results (Last 24 hours): 02/27/19 02/27/19 02/28/19 16:49 20:38 07:35 Glucose POC Glucose 216 H 203 H 200 H 02/28/19 02/28/19 08:41 11:27 Glucose 221 H POC Glucose 227 H OUTPATIENT ANTIDIABETIC REGIMEN: * Tresiba 160 units HS;Novolog SS; Liraglutide SQ 1.8 mg qAM * A1c = 11 % 02/27/19 ASSESSMENT: * Patient required 294units yesterday, without blood sugars reaching goal, will give supplemental dose of basal this morning, then increase PM dose. * Also, tighten CF and CR for better glycemic control. PLAN FOR INPATIENT GLYCEMIC CONTROL: * Hold outpatient Liraglutide * Basal insulin * Lantus 30 units SQ x 1 dose now, then increase dose * SQ HS: * BSG < 140 - 90 units * BSG 140-180 - 140 units * BSG 181-230 - 150 units * BSG > 230 - 160 units * Bolus insulin - tighten CF and CR * NovoLog per scale ACHS or Q6hrs while NPO * Goal Range: Low 110 mg/dL - High 160 mg/dL - higher d/t high A1c * Correction Factor: 8 mg/dL/unit * Nutritional / Prandial insulin per carb ratio of 1 unit per 2.5 grams CHO consumed PLAN FOR DISCHARGE: * Pt follows with MTM clinic at [facility]
[2019-02-28] MEDS: CYCLOBENZAPRINE HCL 10 MG TAB PO PRN (20:43)
[2019-02-28] MEDS: INSULIN GLARGINE 100 UNIT/ML VIAL SC SCH (20:45)
[2019-02-28] MEDS: PANTOprazole 40 MG TAB PO SCH (20:47)
[2019-02-28] MEDS: NORTRIPTYLINE HCL 25 MG CAP PO SCH (20:48)
--- NOTE | 2019-02-28 20:48 | Hospitalist Progress Note ---
Date of Service February 28, 2019 Assessment & Plan (1) Fall: Fell after legs slid on the floor Possible related to orthostatic vs mechanical fall Xray hip showed no fracture or dislocation within the pelvis or hips. Xray of knees showed No fractures within the right or left knee. fall precaution PT/OT (2) Fibromyalgia: Chronic pain continue duloxetine and gabapentin Continue tramadol PRN (3) RLS (restless legs syndrome): Continue ropinirole HS (4) ELISSA on CPAP: Continue Cpap (5) Depression with anxiety: Pt said that she has been on Clonazepam for years On clonazepam and duloxetine Consider to taper off clonazepam and add maintenance med to control anxiety and depression defer to PCP (6) Hypothyroidism: Continue levothyroxine (7) CHF (congestive heart failure): Lasix on hold Will resume in am No sign for CHF Headache Hx of chronic migraine Advided pt to use OTC riboflavin Tylenol prn DVT px on SCDs and heparin subq CODE status Full code Disposition Discharge home tomorrow Subjective Pt was seen and examined Sitting on the bed with no distress Pt said that she is having pain and headache Her pain and headache are chronic She said that if I discharge her, she would come right back because of the headache She is not interested to go to rehab Denies any chest pain, palpitation, dizziness and SOB Physical Exam Physical Exam: General- No acute distress Head- atraumatic Eyes- PERRL, EOMI, ENT- oropharynx clear Neck- supple, no JVD Lungs- clear to auscultation Heart- regular rhythm; no murmur Abdomen- normal bowel sounds, soft, nontender Extremities- no calf tenderness Neuro- alert, oriented x 3; PERRL, EOMI; no facial palsy; no dysarthria Skin- warm & dry Results & Data Vital Signs (Past 12 Hours) Vital Signs Temp Pulse Pulse Resp BP Pulse Ox 02/28/19 19:38 36.7 C 108 H 20 109/68 90 02/28/19 15:13 36.7 C 101 H 20 99/66 L 92 02/28/19 11:51 36.8 C 96 H 18 107/64 93 (1) CHF (congestive heart failure) Heart failure chronicity: acute on chronic Heart failure type: unspecified Qualified Code(s): I50.9 - Heart failure, unspecified
[2019-02-28] MEDS ORDERED: MAGNESIUM SULFATE / D5W 1 GM/100 ML BAG IV ONE (20:52)
[2019-02-28] MEDS ORDERED: OXYCODONE/ACETAMINOPHEN 5mg/325mg TAB PO PRN (22:00)
[2019-03-01] MEDS: TRAMADOL HCL 50 MG TABLET PO PRN ×2 (06:07→09:59)
[2019-03-01] MEDS: LEVOTHYROXINE SODIUM 25 MCG TABLET PO SCH (06:07)
[2019-03-01] MEDS: LEVOTHYROXINE SODIUM 200 MCG TABLET PO SCH (06:07)
[2019-03-01] MEDS: clonazePAM 0.5 MG TAB PO SCH ×2 (07:53→20:52)
[2019-03-01] MEDS: ROPINIROLE HCL 1 MG TABLET PO SCH ×3 (07:53→20:59)
[2019-03-01] MEDS: MAGNESIUM CHLORIDE 64MG DELAYED REL TAB PO SCH ×2 (07:54→21:00)
[2019-03-01] MEDS: GABAPENTIN 300 MG CAP PO SCH ×3 (07:54→20:58)
[2019-03-01] MEDS: METOPROLOL TARTRATE 25 MG TAB PO SCH ×2 (07:54→21:21)
[2019-03-01] MEDS: INSULIN ASPART 100 UNITS/ML 3 ML PEN SC SCH ×4 (07:54→20:56)
[2019-03-01] MEDS: DULOXETINE HCL 60 MG CAP PO SCH (07:54)
[2019-03-01] MEDS: ONDANSETRON INJ 2 MG/ML 2 ML VIAL IV PRN ×2 (12:20→21:20)
--- NOTE | 2019-03-01 12:34 | Pharmacy Report ---
Pharmacy Glycemic Short Note 2 - Date of Service March 01, 2019 - Glycemic Short BSG Results (Last 24 hours): 02/28/19 02/28/19 03/01/19 16:07 20:02 07:33 POC Glucose 198 H 130 H 134 H OUTPATIENT ANTIDIABETIC REGIMEN: * Tresiba 160 units SC HS; Novolog sliding scale; Liraglutide 1.8 mg SC qAM * A1c = 11% on 02/27/19 ASSESSMENT: 03/01/19 * BSG's have responded nicely after tightening CHO ratio yesterday - post pr andial BSG's 130 mg/dL and 118 mg/dL. No change to Novolog for now. * AM fasting BSG in goal range at 134 mg/dL after receiving a total of 120 units of Lantus yesterday. Will not give supplemental dose this AM but instead adjust PM parameters 02/28/19 * Patient required 294units yesterday, without blood sugars reaching goal, will give supplemental dose of basal this morning, then increase PM dose. * Also, tighten CF and CR for better glycemic control. PLAN FOR INPATIENT GLYCEMIC CONTROL: * Hold outpatient Liraglutide * Basal insulin: Lantus qHS based on BSG * 100 units for BSG less than 120 mg/dL * 120 units for BSG 120-200 mg/dL * 140 units for BSG greater than 200 mg/dL * Bolus insulin * NovoLog per scale ACHS or Q6hrs while NPO * Goal Range: Low 110 mg/dL - High 160 mg/dL - higher d/t high A1c * Correction Factor: 8 mg/dL/unit * Nutritional / Prandial insulin per carb ratio of 1 unit per 2.5 grams CHO consumed PLAN FOR DISCHARGE: * Pt follows with MTM clinic at [facility]
[2019-03-01] MEDS ORDERED: ONDANSETRON INJ 2 MG/ML 2 ML VIAL IV STA (16:45)
[2019-03-01 17:02] LABS: Allen Test POS (Pos); HCO3 ABG 25 mmol/L (19-24); Oxygen Saturation ABG 90.2 % (90-95); PCO2 ABG 50 mmHg (35-46); PO2 ABG 60 mm/Hg (80-95); pH ABG 7.32 (7.35-7.45)
[2019-03-01] MEDS ORDERED: ACETAMINOPHEN 1,000 MG/100 ML VIAL IV STA (17:07)
[2019-03-01] MEDS ORDERED: PROMETHAZINE HCL 12.5 MG in SODIUM CHLORIDE 0.9% 50 ML IV STA (17:38)
--- NOTE | 2019-03-01 20:13 | Hospitalist Progress Note ---
Date of Service March 01, 2019 Assessment & Plan (1) Fall: Fell after legs slid on the floor Possible related to orthostatic vs mechanical fall Xray hip showed no fracture or dislocation within the pelvis or hips. Xray of knees showed No fractures within the right or left knee. fall precaution PT/OT (2) Fibromyalgia: Chronic pain continue duloxetine and gabapentin Continue tramadol PRN (3) RLS (restless legs syndrome): Continue ropinirole HS (4) ELISSA on CPAP: Continue Cpap (5) Depression with anxiety: Pt said that she has been on Clonazepam for years On clonazepam and duloxetine Consider to taper off clonazepam and add maintenance med to control anxiety and depression defer to PCP (6) Hypothyroidism: Continue levothyroxine (7) CHF (congestive heart failure): Lasix on hold Will resume in am No sign for CHF Headache Hx of chronic migraine if headache worsening, will get a CT head Advised pt to use OTC riboflavin Tylenol prn DVT px on SCDs and heparin subq CODE status Full code Disposition Discharge home once medically stable Subjective Pt was seen and examined Lying in bed continue complaint with pain and headache Pt said that her headache is getting worst Nurse called 2 hrs after i saw the patient because she was very sleeping nd without her oxygen on Pt said that her oxygen came out and never placed it back She said that she feels very nauseated due to her headache Denies any numbness, chest pain, SOB and palpitation Physical Exam Physical Exam: General- Mild distress Head- atraumatic Eyes- PERRL, EOMI, ENT- oropharynx clear Neck- supple, no JVD Lungs- clear to auscultation Heart- regular rhythm; no murmur Abdomen- normal bowel sounds, soft, nontender Extremities- no calf tenderness Neuro- alert, oriented x 3; PERRL, EOMI; no facial palsy; no dysarthria Skin- warm & dry Results & Data Vital Signs (Past 12 Hours) Vital Signs Temp Pulse Pulse Resp BP Pulse Ox 03/01/19 20:01 37.2 C 99 H 18 129/71 92 03/01/19 16:04 37.5 C 112 H 20 137/73 93 03/01/19 16:00 108 H 03/01/19 11:43 37.0 C 65 20 114/66 95 (1) CHF (congestive heart failure) Heart failure chronicity: acute on chronic Heart failure type: unspecified Qualified Code(s): I50.9 - Heart failure, unspecified
[2019-03-01] MEDS: INSULIN GLARGINE 100 UNIT/ML VIAL SC SCH (20:56)
[2019-03-01] MEDS: NORTRIPTYLINE HCL 25 MG CAP PO SCH (20:59)
[2019-03-01] MEDS: PANTOprazole 40 MG TAB PO SCH (21:00)
[2019-03-02] MEDS: ACETAMINOPHEN 325 MG TAB PO PRN ×3 (04:49→16:59)
[2019-03-02] MEDS: ONDANSETRON INJ 2 MG/ML 2 ML VIAL IV PRN ×2 (05:16→11:06)
[2019-03-02] MEDS: LEVOTHYROXINE SODIUM 25 MCG TABLET PO SCH (06:11)
[2019-03-02] MEDS: LEVOTHYROXINE SODIUM 200 MCG TABLET PO SCH (06:11)
[2019-03-02] MEDS: INSULIN ASPART 100 UNITS/ML 3 ML PEN SC SCH ×4 (09:09→22:16)
[2019-03-02] MEDS: GABAPENTIN 300 MG CAP PO SCH ×3 (09:10→22:16)
[2019-03-02] MEDS: METOPROLOL TARTRATE 25 MG TAB PO SCH ×2 (09:10→22:16)
[2019-03-02] MEDS: clonazePAM 0.5 MG TAB PO SCH ×2 (09:10→22:14)
[2019-03-02] MEDS: DULOXETINE HCL 60 MG CAP PO SCH (09:10)
[2019-03-02] MEDS: MAGNESIUM CHLORIDE 64MG DELAYED REL TAB PO SCH ×2 (09:10→22:15)
[2019-03-02] MEDS ORDERED: GLUCOSE 40% GEL 15 GM TUBE PO PRN (14:15)
[2019-03-02] MEDS ORDERED: CARBOHYDRATES FOR HYPOGLYCEMIA PO PRN (14:15)
[2019-03-02] MEDS ORDERED: GLUCAGON FOR INJ 1 MG VIAL IM PRN (14:15)
[2019-03-02] MEDS ORDERED: DEXTROSE 50% 50 ML SYRINGE IV PRN (14:15)
[2019-03-02] MEDS ORDERED: GLUCOSE 10 TABS/TUBE PO PRN (14:15)
--- NOTE | 2019-03-02 14:16 | Pharmacy Report ---
Pharmacy Glycemic Short Note 2 - Date of Service March 02, 2019 - Glycemic Short BSG Results (Last 24 hours): 03/01/19 03/01/19 03/02/19 16:35 20:27 07:47 POC Glucose 86 126 H 124 H 03/02/19 11:44 POC Glucose 84 OUTPATIENT ANTIDIABETIC REGIMEN: * Tresiba 160 units SC HS; Novolog sliding scale; Liraglutide 1.8 mg SC qAM * A1c = 11% on 02/27/19 ASSESSMENT: 03/02/19 * Patient received total of 149 units of insulin yesterday, of which 120 were basal insulin (decrease from home dose of tresiba 160) * Fasting this am within range at 124 mg/dL - will continue same Lantus scale for tonight * Lunchtime BSG trending down to 84 mg/dl - BSGs yesterday much improved from day prior; will loosen CR for lunch 03/01/19 * BSG's have responded nicely after tightening CHO ratio yesterday - post prandial BSG's 130 mg/dL and 118 mg/dL. No change to Novolog for now. * AM fasting BSG in goal range at 134 mg/dL after receiving a total of 120 units of Lantus yesterday. Will not give supplemental dose this AM but instead adjust PM parameters 02/28/19 * Patient required 294units yesterday, without blood sugars reaching goal, will give supplemental dose of basal this morning, then increase PM dose. * Also, tighten CF and CR for better glycemic control. PLAN FOR INPATIENT GLYCEMIC CONTROL: * Hold outpatient Liraglutide * Basal insulin: Lantus qHS based on BSG * 100 units for BSG less than 120 mg/dL * 120 units for BSG 120-200 mg/dL * 140 units for BSG greater than 200 mg/dL * Bolus insulin - loosen * NovoLog per scale ACHS or Q6hrs while NPO * Goal Range: Low 110 mg/dL - High 160 mg/dL * Correction Factor: 8 mg/dL/unit * Nutritional / Prandial insulin per carb ratio of 1 unit per 4 grams CHO consumed
--- NOTE | 2019-03-02 18:05 | Hospitalist Progress Note ---
Date of Service March 02, 2019 Assessment & Plan (1) Fall: Fell after legs slid on the floor Possible related to orthostatic vs mechanical fall Xray hip showed no fracture or dislocation within the pelvis or hips. Xray of knees showed No fractures within the right or left knee. fall precaution PT/OT (2) Hypoxia: Desaturated in the 80 's on RA She does not use oxygen during the day only during sleep with Cpap Unable to get a CT with PE protocol due to chronic kidney failure Will consult pulmonology Will get doppler of LE Continue oxygen supplement case discussed with Pulm Dr. Daigle recommended to get a D-dimer If D-dimer negative, will cancel the doppler (3) Dizziness: Due to orthostatic hypotension Continue to hold BP meds Received IVF (4) Fibromyalgia: Chronic pain continue duloxetine and gabapentin Continue tramadol PRN (5) RLS (restless legs syndrome): Continue ropinirole HS (6) ELISSA on CPAP: Continue Cpap (7) Depression with anxiety: Pt said that she has been on Clonazepam for years On clonazepam and duloxetine Consider to taper off clonazepam and add maintenance med to control anxiety and depression Will defer to PCP (8) Hypothyroidism: Continue levothyroxine (9) CHF (congestive heart failure): Lasix on hold No sign of CHF Will monitor closely for fluid overload Headache Hx of chronic migraine No focal neuro deficit Headache improves Advised pt to use OTC riboflavin Tylenol prn DVT px on SCDs Allergic with heparin (HIT) CODE status Full code Disposition Discharge home once medically stable Subjective Pt was seen and examined Lying in bed with no distress Pt said that headache improves She said that she was able to sleep for a few hours last night She continues requiring oxygen supplement She was d/c today below the 80's when tried to place on RA She became dizzy when therapist stood her to walk Nausea and vomiting improves and was able to eat Denies any chest pain, palpitation, fever Physical Exam Physical Exam: General- Mild distress Head- atraumatic Eyes- PERRL, EOMI, ENT- oropharynx clear Neck- supple, no JVD Lungs- clear to auscultation Heart- regular rhythm; no murmur Abdomen- normal bowel sounds, soft, nontender Extremities- no calf tenderness Neuro- alert, oriented x 3; PERRL, EOMI; no facial palsy; no dysarthria Skin- warm & dry Results & Data Vital Signs (Past 12 Hours) Vital Signs Temp Pulse Pulse Resp BP BP Pulse Ox 03/02/19 15:07 36.8 C 102 H 20 124/66 97 03/02/19 14:58 98 03/02/19 14:08 03/02/19 11:37 36.5 C 96 H 18 108/72 94 03/02/19 07:29 36.7 C 95 H 18 99/55 L 96 03/02/19 07:16 96 H Pulse Ox Pulse Ox Pulse Ox Pulse Ox 03/02/19 15:07 03/02/19 14:58 03/02/19 14:08 97 93 78 L 88 L 03/02/19 11:37 03/02/19 07:29 03/02/19 07:16 (1) CHF (congestive heart failure) Heart failure chronicity: acute on chronic Heart failure type: unspecified Qualified Code(s): I50.9 - Heart failure, unspecified
[2019-03-02 19:16] LABS: D Dimer 740 ug/L FEU (0-500)
--- NOTE | 2019-03-02 22:02 | Ultrasound Report ---
BILATERAL LOWER EXTREMITY VENOUS DOPPLER HISTORY: Acute hypoxia with concern for lower extremity DVT Hypoxia COMPARISON STUDY: Duplex venous Doppler study 06/08/2018. FINDINGS: There is normal compressibility, flow, and augmentation within the bilateral lower extremit y deep venous systems. Changes in relation of the calf veins secondary to patient body habitus. IMPRESSION: No sonographic evidence of deep thrombosis within the right or left lower extremity. Electronically signed by: Ernesto Gilliland M.D. 03/02/2019 10:01 PM
[2019-03-02] MEDS: INSULIN GLARGINE 100 UNIT/ML VIAL SC SCH (22:12)
[2019-03-02] MEDS: TRAMADOL HCL 50 MG TABLET PO PRN (22:14)
[2019-03-02] MEDS: NORTRIPTYLINE HCL 25 MG CAP PO SCH (22:15)
[2019-03-02] MEDS: PANTOprazole 40 MG TAB PO SCH (22:15)
[2019-03-02] MEDS: ROPINIROLE HCL 1 MG TABLET PO SCH (22:15)
[2019-03-03] MEDS: ONDANSETRON INJ 2 MG/ML 2 ML VIAL IV PRN (01:10)
[2019-03-03] MEDS: LEVOTHYROXINE SODIUM 200 MCG TABLET PO SCH (06:20)
[2019-03-03] MEDS: LEVOTHYROXINE SODIUM 25 MCG TABLET PO SCH (06:20)
[2019-03-03 07:35] LABS: BUN Creatinine Ratio 12.5 (10-20); Calcium 9.3 mg/dl (8.5-10.1); Creatinine Clr Calc Pharmacy 69.4 ml/min; Est GFR (African American) 52.5; Est GFR (Non-African American) 45.3; Potassium 4.2 mmol/L (3.5-5.1)
[2019-03-03] MEDS: DULOXETINE HCL 60 MG CAP PO SCH (08:39)
[2019-03-03] MEDS: METOPROLOL TARTRATE 25 MG TAB PO SCH ×2 (08:40→20:20)
[2019-03-03] MEDS: MAGNESIUM CHLORIDE 64MG DELAYED REL TAB PO SCH ×2 (08:40→20:19)
[2019-03-03] MEDS: clonazePAM 0.5 MG TAB PO SCH ×2 (08:40→20:20)
[2019-03-03] MEDS: INSULIN ASPART 100 UNITS/ML 3 ML PEN SC SCH ×4 (08:41→20:21)
[2019-03-03] MEDS: GABAPENTIN 300 MG CAP PO SCH ×3 (08:41→20:20)
[2019-03-03] MEDS: ACETAMINOPHEN 325 MG TAB PO PRN (12:38)
--- NOTE | 2019-03-03 15:31 | Consultation Report ---
DATE OF CONSULTATION: 03/03/2019 PULMONARY CONSULTATION TIME: 11:00 a.m. REPORT OF CONSULTATION: Pulmonary consultation is requested regarding hypoxia. The patient is a 63-year-old female who was admitted to the hospital in the very early hours of February 27. She had come to the Emergency Room after suffering a fall at home. This happened in the afternoon. She states a glass had broken and she was trying to pick it up off the floor. She fell and could not get up on her own. She then called the ambulance. She has had 2 other falls preceding this in the past 2 weeks or more. Her blood pressure has been running lower than normal. She was found to have orthostasis after she arrived. She is still having dizziness and lightheadedness. The patient has had pain in her knees bilaterally and in the right hip since the fall. Yesterday, she was noted to have decreased oxygen levels. Reportedly, it was in the 80s on room air. She has not had any change in her breathing. The patient is chronically short of breath with any significant exertion. She does live on one floor. She states that she has to walk up about 6 steps to get to where her car is and she is quite short of breath doing that. If she goes to a [employer] or large store, she typically takes a riding cart. She is significantly obese. She has never been told in the past that she had low oxygen except at night. She does carry a history of sleep apnea and wears CPAP and there is oxygen into the CPAP. She does have a cough most days. She believes it is from postnasal drip. She brings up small quantities of thick yellow mucus that she states looks like gum. She apparently has a history of reflux, but it is controlled. The patient is an ex-smoker. She quit in 1996. She reportedly smoked 1 pack per day for 15 years. She states she was never told of any chronic lung disease. Approximately 2009, she had severe bilateral pneumonia. She was on the ventilator and could not be extubated. She was ultimately sent to [facility]. She was in the hospital for up to 2 months. Following discharge, she went to a detention for a while to try and recover. She did have a tracheostomy at that time that was subsequently closed. PAST SURGICAL HISTORY: 1. Cholecystectomy. 2. Right total knee replacement. 3. Tracheostomy. 4. Left knee scope. 5. Surgery for perforation of the right colon. 6. Gastrostomy tube. 7. Thyroidectomy. 8. Hernia repair. 9. IVC filter insertion. PAST MEDICAL HISTORY: 1. Fibromyalgia. 2. Chronic kidney disease. 3. Diastolic CHF. 4. Diabetes mellitus with neuropathy. 5. Sleep apnea. 6. Hypertension. 7. Hyperlipidemia. 8. DVT. 9. Hypothyroidism. 10. Reflux. 11. Anxiety. 12. Depression. 13. Restless leg syndrome. 14. Heparin-induced thrombocytopenia. 15. Urinary tract infection for which she was hospitalized from 12/23/2018 until 12/27/2018. SOCIAL HISTORY: Tobacco as noted, none since 1996, previously 1 pack per day for 15 years. ETOH - rare. ALLERGIES: TETRACYCLINE, CODEINE, HEPARIN AND MORPHINE. FAMILY HISTORY: Father at age 74, lung cancer. Mother at age 45, liver cancer. MEDICATIONS AT HOME: 1. Clonazepam 0.5 b.i.d. 2. Cyclobenzaprine 10 mg p.r.n. 3. Duloxetine 60 mg daily. 4. Vitamin D2. 5. Furosemide 80 mg b.i.d. 6. Gabapentin 300 mg t.i.d. 7. Levothyroxine 25 mcg daily and 200 mcg daily for a total of 225 mcg daily. 8. Liraglutide subQ. 9. Lisinopril 2.5 mg daily. 10. Magnesium 64 mg b.i.d. 11. Metoprolol 12.5 mg b.i.d. 12. Nortriptyline 50 mg at bedtime. 13. NovoLog by sliding scale. 14. Omeprazole 20 mg at bedtime. 15. Ropinirole 2 mg t.i.d. 16. Spironolactone 12.5 mg daily. REVIEW OF SYSTEMS: Energy level is low. Chronic nasal congestion and dryness. No trouble swallowing. No recent heartburn. Denies nausea, vomiting, diarrhea, constipation. Pain throughout which bothers her from fibromyalgia. No significant weight loss or weight gain recently. Wears CPAP nightly and does well. Review of systems is otherwise negative except as noted. Ten systems reviewed. PHYSICAL EXAMINATION: VITAL SIGNS: The patient is a 63-year-old female who was cooperative, alert and oriented. She was in no distress. Weight is 158.4 kilograms. BMI is 60. HEENT: Pupils were reactive. Nares mildly congested. Mouth exam shows Mallampati grade 2. NECK: She has a large neck. No lymph nodes palpable. She has a large prominent scar at the base of the neck from prior thyroid surgery and tracheostomy. CHEST: Showed diminished excursions. Heart rate 81 per minute. Rhythm regular. Blood pressure 115/74. LUNGS: Lung steiner revealed rales anteriorly bilaterally. Breath sounds posteriorly diminished, likely secondary to her obesity. No wheezes heard. Saturation from earlier this morning was recorded as 98% on room air, but she states she had had oxygen on the entire time. Yesterday, there was a report of saturation 78% at 2:08 p.m. in the afternoon. Blood pressure 115/74. Her blood pressure seems to go up and down quite readily. Sometimes systolic will be as low as 92 and other time systolic will be as high as 154. ABDOMEN: Obese. She has a very large transverse scar and a very large vertical scar. Bowel sounds were present. No tenderness to palpation, masses or organomegaly. EXTREMITIES: Shows that the left lower leg and foot are cool compared with the right. Pulses were well heard, however. She states that she had been having that leg more on the floor. There was trace nonpitting edema noted. No cyanosis or clubbing noted. LABORATORY DATA: White count from February 27 was 10.5. Hemoglobin 12.5. Platelets 241,000. D-dimer done yesterday was 740. Blood gas done March 01 showed pH 7.32 with pCO2 of 50 and a pO2 of 60. This was done reportedly on 5 liters of oxygen. This would reflect respiratory acidosis with hypoxia. Electrolytes show sodium 139, potassium 4.2, chloride 105, bicarbonate 31. BUN 16 with a creatinine of 1.26. Venous Doppler done yesterday showed no evidence of DVT. Chest x-ray done February 26 showed cardiomegaly. There were increased reticular interstitial markings. It was unclear to me if this was truly parenchymal or if the markings were accentuated because of very large breast markings. EKG on admission showed sinus tachycardia, but otherwise normal. IMPRESSION: 1. Acute on chronic respiratory failure with hypoxia and hypercarbia. 2. Obesity hypoventilation syndrome. 3. Obstructive sleep apnea. 4. Diastolic congestive heart failure by history. COMMENTS AND RECOMMENDATIONS: The patient clinically does not appear short of breath. She did have an abnormal blood gas, however, from March 01. I suspect this is related to obesity hypoventilation. It is difficult to exclude underlying parenchymal lung disease. I did review a CT of the abdomen that was done 12/23/2018 and there was no definitive lung abnormality seen at that point. RECOMMENDATIONS: The patient is on CPAP at home. In light of the elevated carbon dioxide, ideally BiPAP might be somewhat better. Would suggest trying BiPAP at least while she is in the hospital. Would suggest doing a ProBNP to better assess the degree of CHF if any. She did have a CTA of the chest done on 06/06/2018. At that time, they did report scattered foci of ground-glass changes. I did review this study and these changes are fairly diffuse. Would suggest an outpatient pulmonary function test be done ultimately. The patient will need to be followed for her oxygen status while in the hospital. She would need a 2-step before discharge to determine if she needs oxygen during the day at rest or only with exertion or if she might need it only at bedtime as she is doing currently. Thank you for asking me to assist in her care.
--- NOTE | 2019-03-03 16:35 | Hospitalist Progress Note ---
Date of Service March 03, 2019 Assessment & Plan (1) Fall: Fell after legs slid on the floor Possible related to orthostatic vs mechanical fall Xray hip showed no fracture or dislocation within the pelvis or hips. Xray of knees showed No fractures within the right or left knee. Fall precaution PT/OT (2) Acute respiratory failure with hypoxia and hypercapnia: Continue requires oxygen supplement Elevated Ddimer She does not use oxygen during the day only during sleep with Cpap Unable to get a CT with PE protocol due to chronic kidney failure Pulmonology on board plan to do a trial of BIpap Doppler of LE showed no evidence of DVT Continue oxygen supplement Will plan to get a 2 step on discharge (3) Dizziness: Due to orthostatic hypotension Will resume BP med since BP starts to increase Monitor BP (4) Fibromyalgia: Chronic pain continue duloxetine and gabapentin Continue tramadol PRN (5) RLS (restless legs syndrome): Continue ropinirole HS (6) ELISSA on CPAP: Continue Cpap (7) Depression with anxiety: Pt said that she has been on Clonazepam for years On clonazepam and duloxetine Consider to taper off clonazepam and add maintenance med to control anxiety and depression Will defer to PCP (8) Hypothyroidism: Continue levothyroxine (9) CHF (congestive heart failure): Lasix resume at 40mg BID No sign of CHF Will monitor closely for fluid overload Headache Hx of chronic migraine No focal neuro deficit Advised pt to use OTC riboflavin Headache improved Tylenol prn DVT px on SCDs Allergic with heparin (HIT) CODE status Full code Disposition Discharge home once medically stable Subjective Pt was seen and examined Sitting at the edge of the bed with no distress Pt said that she does not have any headache now She said that she walked with therapy in the hallway and feel a little dizzy She is much awake today Continue to use oxygen supplement Denies any chest pain, palpitation and fever Physical Exam Physical Exam: General- No acute distress, obese Head- atraumatic Eyes- PERRL, EOMI, ENT- oropharynx clear Neck- supple, no JVD Lungs- clear to auscultation Heart- regular rhythm; no murmur Abdomen- normal bowel sounds, soft, nontender Extremities- no calf tenderness Neuro- alert, oriented x 3; PERRL, EOMI; no facial palsy; no dysarthria Skin- warm & dry Results & Data Vital Signs (Past 12 Hours) Vital Signs Temp Pulse Pulse Resp BP Pulse Ox 03/03/19 15:33 96 H 03/03/19 15:31 36.9 C 62 20 145/76 H 99 03/03/19 14:56 80 L 03/03/19 11:28 36.7 C 84 20 121/82 100 03/03/19 07:31 89 03/03/19 07:00 36.4 C L 60 18 115/74 98 (1) CHF (congestive heart failure) Heart failure chronicity: acute on chronic Heart failure type: unspecified Qualified Code(s): I50.9 - Heart failure, unspecified
[2019-03-03] MEDS: FUROSEMIDE 40 MG TAB PO SCH ×2 (18:03→18:04)
[2019-03-03] MEDS: PANTOprazole 40 MG TAB PO SCH (20:20)
[2019-03-03] MEDS: ROPINIROLE HCL 1 MG TABLET PO SCH (20:20)
[2019-03-03] MEDS: NORTRIPTYLINE HCL 25 MG CAP PO SCH (20:20)
[2019-03-03] MEDS: INSULIN GLARGINE 100 UNIT/ML VIAL SC SCH (20:23)
[2019-03-04] MEDS: ACETAMINOPHEN 325 MG TAB PO PRN ×2 (01:28→05:53)
[2019-03-04] MEDS: ONDANSETRON INJ 2 MG/ML 2 ML VIAL IV PRN (03:52)
[2019-03-04 05:55] LABS: Basophils # (auto) 0.05 K/uL (0-0.2); Basophils % (auto) 0.7 %; Eosinophils # (auto) 0.45 K/uL (0-0.5); Eosinophils % (auto) 5.9 %; Hematocrit (blood only) 39.3 % (37-47); Hemoglobin 12.5 g/dL (12.0-16.0); Immature Granulocytes # (auto) 0.07 K/uL (0.00-0.02); Immature Granulocytes % (auto) 0.9 %; Lymphocytes % (auto) 23.7 %; Mean Corpuscular Hgb Conc 31.8 g/dL (32-36); Mean Corpuscular Volume 93.8 fL (80-100); Mean Platelet Volume 9.7 fL (7.4-10.4); Monocytes # (auto) 0.45 K/uL (0.11-0.59); Monocytes % (auto) 5.9 %; Neutrophils # (auto) 4.77 K/uL (1.4-6.5); Neutrophils % (auto) 62.9 %; Platelet Count 216 K/uL (130-400); RDW Coefficient of Variation 15.4 % (11.5-14.5); Red Blood Count 4.19 M/uL (4.2-5.4); White Blood Count 7.59 K/uL (4.8-10.8)
[2019-03-04] MEDS ORDERED: ALBUMIN 25% 50 ML IV ONE (06:00)
[2019-03-04 06:19] LABS: BUN Creatinine Ratio 13.7 (10-20); Calcium 9.5 mg/dl (8.5-10.1); Creatinine Clr Calc Pharmacy 65.2 ml/min; Est GFR (African American) 48.7; Est GFR (Non-African American) 42.1; Potassium 3.9 mmol/L (3.5-5.1)
[2019-03-04] MEDS: LEVOTHYROXINE SODIUM 25 MCG TABLET PO SCH (06:26)
[2019-03-04] MEDS: LEVOTHYROXINE SODIUM 200 MCG TABLET PO SCH (06:26)
[2019-03-04] MEDS ORDERED: POLYETHYLENE (MIRALAX) 17 GM PACK PO PRN (06:31)
[2019-03-04] MEDS ORDERED: SODIUM CHLORIDE 0.9% 500 ML IV ONE (06:31)
[2019-03-04] MEDS ORDERED: DOCUSATE SODIUM 100 MG CAP PO SCH ×2 (06:45)
[2019-03-04] MEDS ORDERED: MAGNESIUM SULFATE / D5W 1 GM/100 ML BAG IV ONE (08:00)
[2019-03-04] MEDS: clonazePAM 0.5 MG TAB PO SCH (08:06)
[2019-03-04] MEDS: GABAPENTIN 300 MG CAP PO SCH ×2 (08:06→14:38)
[2019-03-04] MEDS: MAGNESIUM CHLORIDE 64MG DELAYED REL TAB PO SCH (08:07)
[2019-03-04] MEDS: DULOXETINE HCL 60 MG CAP PO SCH (08:07)
[2019-03-04] MEDS: INSULIN ASPART 100 UNITS/ML 3 ML PEN SC SCH ×2 (08:10→12:42)
[2019-03-04] MEDS: METOPROLOL TARTRATE 25 MG TAB PO SCH (10:41)
--- NOTE | 2019-03-04 12:15 | Pharmacy Report ---
Pharmacy Glycemic Short Note 2 - Date of Service March 04, 2019 - Glycemic Short BSG Results (Last 24 hours): 03/03/19 03/03/19 03/04/19 16:38 20:19 05:45 Glucose 89 POC Glucose 152 H 95 03/04/19 03/04/19 07:22 11:37 Glucose POC Glucose 90 100 H OUTPATIENT ANTIDIABETIC REGIMEN: * Tresiba 160 units SC HS; Novolog sliding scale; Liraglutide 1.8 mg SC qAM * A1c = 11% on 02/27/19 ASSESSMENT: 03/04/19 * Blood sugars at goal or slightly under, pt doing well on 100 units of Lantus, will change parameters so that patient only receives more for BSG > 180mg/dl 03/02/19 * Patient received total of 149 units of insulin yesterday, of which 120 were basal insulin (decrease from home dose of tresiba 160) * Fasting this am within range at 124 mg/dL - will continue same Lantus scale for tonight * Lunchtime BSG trending down to 84 mg/dl - BSGs yesterday much improved from day prior; will loosen CR for lunch 03/01/19 * BSG's have responded nicely after tightening CHO ratio yesterday - post prandial BSG's 130 mg/dL and 118 mg/dL. No change to Novolog for now. * AM fasting BSG in goal range at 134 mg/dL after receiving a total of 120 units of Lantus yesterday. Will not give supplemental dose this AM but instead adjust PM parameters 02/28/19 * Patient required 294units yesterday, without blood sugars reaching goal, will give supplemental dose of basal this morning, then increase PM dose. * Also, tighten CF and CR for better glycemic control. PLAN FOR INPATIENT GLYCEMIC CONTROL: * Hold outpatient Liraglutide * CHANGE: Basal insulin: Lantus qHS based on BSG * 100 units for BSG less than 180 mg/dL * 120 units for BSG 180 mg/dL or greater * Bolus insulin * NovoLog per scale ACHS or Q6hrs while NPO * Goal Range: Low 110 mg/dL - High 160 mg/dL (higher high range for A1c 11%) * Correction Factor: 12 mg/dL/unit * Nutritional / Prandial insulin per carb ratio of 1 unit per 4 grams CHO consumed
--- NOTE | 2019-03-04 16:37 | Hospitalist Progress Note ---
Date of Service March 04, 2019 Assessment & Plan (1) Fall: Fell after legs slid on the floor Possible related to orthostatic vs mechanical fall Xray hip showed no fracture or dislocation within the pelvis or hips. Xray of knees showed No fractures within the right or left knee. Not interested to go to inpatient rehab Fall precaution PT/OT (2) Acute respiratory failure with hypoxia and hypercapnia: Continue requires oxygen supplement Elevated Ddimer She does not use oxygen during the day only during sleep with Cpap Unable to get a CT with PE protocol due to chronic kidney failure Pulmonology on board Had a trial of Bippap last night Doppler of LE showed no evidence of DVT Saturated well on RA today 2 step exercise done today and patient required 2L NC with ambulation district loss prevention manager notified and arranged for a portable oxygen supplement (3) Dizziness: Due to orthostatic hypotension BP started to elevated BP meds resume on discharge Monitor BP (4) Fibromyalgia: Chronic pain continue duloxetine and gabapentin Continue tramadol PRN (5) RLS (restless legs syndrome): Continue ropinirole HS (6) ELISSA on CPAP: Continue Cpap (7) Depression with anxiety: Pt said that she has been on Clonazepam for years On clonazepam and duloxetine Consider to taper off clonazepam and add maintenance med to control anxiety and depression Will defer to PCP (8) Hypothyroidism: Continue levothyroxine (9) CHF (congestive heart failure): She has been on lasix 80mg BID for months Experienced epizodes of dizziness with orthostatic hypotension Lasix was resumed at 40mg BID while in the hospital Will discharge on Lasix 60mg BID Will need to monitor closely for fluid overload Will need daily weight check and if weight increases by more than 2 lbs over 24hrs , she will take an additional 20mg lasix Follow up with cardiology Monitor BMP CKD stage 3 Creatinine on admission 2.06 Possible related to over diurese baseline seems to be in the 1.7 Lasix was on hold, then resumed at 40mg BID during the hospital course Will discharge on lasix 60mg BID Check BMP in 1 week Headache Hx of chronic migraine No focal neuro deficit Advised pt to use OTC riboflavin Clinically Improved Headache improved DVT px on SCDs Allergic with heparin (HIT) CODE status Full code Disposition Follow up with your PCP Dr Whiteside on 03/05 @ 12:55 PM Subjective Pt was seen and examined Sitting in bed with no distress Pt said that she feels a little better today She has been saturated well on RA She said that she does not have any headache today She said that she only feels dizzy a little when she gets up too quick She had a 2 step done today and she required oxygen with ambulation Denies any chest pain, palpitation, dizziness and SOB Physical Exam Physical Exam: General- No acute distress, obese Head- atraumatic Eyes- PERRL, EOMI, ENT- oropharynx clear Neck- supple, no JVD Lungs- clear to auscultation Heart- regular rhythm; no murmur Abdomen- normal bowel sounds, soft, nontender Extremities- no calf tenderness Neuro- alert, oriented x 3; PERRL, EOMI; no facial palsy; no dysarthria Skin- warm & dry Results & Data Vital Signs (Past 12 Hours) Vital Signs Temp Pulse Pulse Pulse Pulse Pulse Pulse 03/04/19 16:21 36.5 C 96 H 59 L 03/04/19 16:14 03/04/19 15:25 36.5 C 59 L 03/04/19 13:47 106 H 115 H 104 H 03/04/19 11:40 36.5 C 81 03/04/19 07:52 85 03/04/19 07:19 36.6 C 75 Pulse Resp Resp Resp Resp Resp BP 03/04/19 16:21 20 155/76 H 03/04/19 16:14 155/76 H 03/04/19 15:25 20 173/53 H 03/04/19 13:47 99 H 22 22 20 18 03/04/19 11:40 20 129/77 03/04/19 07:52 03/04/19 07:19 20 101/61 Pulse Ox Pulse Ox Pulse Ox Pulse Ox Pulse Ox 03/04/19 16:21 94 03/04/19 16:14 03/04/19 15:25 94 03/04/19 13:47 92 87 L 93 92 03/04/19 11:40 98 03/04/19 07:52 03/04/19 07:19 99 (1) CHF (congestive heart failure) Heart failure chronicity: acute on chronic Heart failure type: unspecified Qualified Code(s): I50.9 - Heart failure, unspecified
--- NOTE | 2019-03-05 07:50 | Discharge Summary ---
Date of Service March 04, 2019 Admission HPI Per Admitting Provider CHIEF COMPLAINT: Fall and found to have orthostatic hypotension. HISTORY OF PRESENT ILLNESS: This is a 63-year-old female with past medical history significant for type 2 diabetes, hyperlipidemia, hypothyroidism, nocturnal hypoxia, obstructive sleep apnea, on CPAP, history of pulmonary embolism status post Frank filter, chronic diastolic congestive heart failure, venous insufficiency, hypertension, morbid obesity, GERD, fibromyalgia, restless leg syndrome, generalized anxiety disorder, depression, statin intolerance, who lives alone, walks with a cane, came here because she fell in the kitchen. She said both the legs went other way and she fell down without losing consciousness.. Last 2 weeks she has had some dizziness, whenever she gets up. She also saw her family doctor today and Requip med doses was increased for the rest of leg syndrome. Also her sugars running are high. She has some blurred visions. Her family doctor thought her blurred vision from uncontrolled blood sugars and she has an appointment for management of her insulin regimen. Complains of pain in the belly and hip region where she fell. She says she also fell recently. Currently resting comfortably. Vitals stable in the ER, initial blood pressure was low but later blood pressure came up, but been on standing the blood pressure dropped again, having significant orthostatic hypotension, getting IV fluids in the ER. Has some headache, had some blurred visions, no sore throat. Appetite is okay, eating fine. No difficulty swallowing. No chest pain, no shortness of breath, no cough, no fever, no chills, no nausea, no abdominal pain. Normal bowel and bladder movements. No blood in the stools, no black stools, no hematuria, no burning, micturition, no rash. Admission Exam Per Admitting Provider GENERAL: The patient is morbidly obese, not in acute distress. VITAL SIGNS: Temperature 36.5, pulse 105, respiratory rate 15, blood pressure 93/64, oxygen 95% on 2 liters. HEENT: No pallor, no icterus. Pupils equal, round, and reactive to light. NECK: No JVD, no neck masses, no carotid bruits. CARDIOVASCULAR: S1, S2 heard, regular rate and rhythm, no murmur, no gallop. RESPIRATORY SYSTEM: Clear to auscultation bilaterally. No wheezing, no crackles. ABDOMEN: Soft, bowel sounds present. Nontender. No distention. CENTRAL NERVOUS SYSTEM: Cranial nerves II-XII was grossly intact. Nonfocal. EXTREMITIES: No edema, no erythema. Principal Diagnosis Fall Acute respiratory failure with hypoxia and hypercapnia: Dizziness RLS (restless legs syndrome): ELISSA on CPAP: Depression/Anxiety: CHF DM type 2 CKD stage 3 Fibromyalgia Headache Discharge Exam General- No acute distress, obese Head- atraumatic Eyes- PERRL, EOMI, ENT- oropharynx clear Neck- supple, no JVD Lungs- clear to auscultation Heart- regular rhythm; no murmur Abdomen- normal bowel sounds, soft, nontender Extremities- no calf tenderness Neuro- alert, oriented x 3; PERRL, EOMI; no facial palsy; no dysarthria Skin- warm & dry Discharge Data Allergies Allergy/AdvReac Type Severity Reaction Status Date / Time tetanus toxoid, adsorbed Allergy Mild PASSED OUT Verified 02/26/19 18:15 AND GOT SICK WHEN A CHILD codeine Allergy Unknown Hallucinati Verified 02/26/19 18:15 ons heparin Allergy Unknown HIT; FLUID Verified 02/26/19 18:15 IN LUNGS morphine Allergy Unknown VIOLENT Verified 02/26/19 18:15 REACTION-"ALMOST " SWELLING Consultations 02/26/19 23:25 ED Decision to Admit Stat 03/02/19 18:10 Consult Pulmonology Routine Ordered Studies 03/02/19 18:09 US venous doppler LE Routine BILATERAL LOWER EXTREMITY VENOUS DOPPLER HISTORY: Acute hypoxia with concern for lower extremity DVT Hypoxia COMPARISON STUDY: Duplex venous Doppler study 06/08/2018. FINDINGS: There is normal compressibility, flow, and augmentation within the bilateral lower extremity deep venous systems. Changes in relation of the calf veins secondary to patient body habitus. IMPRESSION: No sonographic evidence of deep thrombosis within the right or left lower extremity. Electronically signed by: Ernesto Gilliland M.D. 03/02/2019 10:01 PM Dictated: 03/02/19 215 Transcribed: 03/02/19 215 XR chest 1V portable HISTORY: 63 years-old Female hypotension acute hypotension COMPARISON: Chest radiograph 12/23/2018 TECHNIQUE: Portable AP view of the chest FINDINGS: Cardiac silhouette is enlarged, unchanged. Reticular interstitial opacities are redemonstrated. There is no pneumothorax, pleural effusion or focal airspace consolidation. Degenerative changes of the shoulders and spine. Surgical clips project over the upper chest at the level of the clavicular heads and lower neck. IMPRESSION: Stable exam without acute process identified. The above report was generated using voice recognition software. It may contain grammatical, syntax or spelling errors. Electronically signed by: Ernesto Gilliland M.D. 02/27/2019 6:22 AM Dictated: 02/27/19620 Transcribed: 02/27/19620 XR knee RT 3V, XR knee LT 3V CLINICAL HISTORY: fall. Bilateral knee pain. COMPARISON STUDY: None. FINDINGS: No fractures within the right or left knee. No dislocation. There is a right total knee arthroplasty. The hardware appears intact. Mild to moderate osteoarthritis within the medial compartment of the left knee. The bones are osteopenic. No significant knee effusion. Soft tissues are unremarkable. Mild to moderate osteoarthritis within the left patellofemoral compartment. IMPRESSION: No fractures within the right or left knee. Electronically signed by: Ernesto France M.D. 02/26/2019 6:53 PM Dictated: 02/26/191850 Transcribed: 02/26/191850 XR knee RT 3V, XR knee LT 3V CLINICAL HISTORY: fall. Bilateral knee pain. COMPARISON STUDY: None. FINDINGS: No fractures within the right or left knee. No dislocation. There is a right total knee arthroplasty. The hardware appears intact. Mild to moderate osteoarthritis within the medial compartment of the left knee. The bones are osteopenic. No significant knee effusion. Soft tissues are unremarkable. Mild to moderate osteoarthritis within the left patellofemoral compartment. IMPRESSION: No fractures within the right or left knee. Electronically signed by: Ernesto France M.D. 02/26/2019 6:53 PM Dictated: 02/26/191850 Transcribed: 02/26/191850 XR hip RT 2-3V w pelvis CLINICAL HISTORY: fall. Right hip pain. COMPARISON STUDY: None. FINDINGS: No fracture or dislocation within the pelvis or hips. The sacrum appears intact. Soft tissues are unremarkable. IMPRESSION: No fracture or dislocation within the pelvis or hips. Electronically signed by: Ernesto France M.D. 02/26/2019 6:51 PM Dictated: 02/26/191849 Transcribed: 06/03/19 1850 Hospital Course (1) Fall: Fell after legs slid on the floor Possible related to orthostatic vs mechanical fall Xray hip showed no fracture or dislocation within the pelvis or hips. Xray of knees showed No fractures within the right or left knee. Not interested to go to inpatient rehab Fall precaution PT/OT (2) Acute respiratory failure with hypoxia and hypercapnia: Continue requires oxygen supplement Elevated Ddimer She does not use oxygen during the day only during sleep with Cpap Unable to get a CT with PE protocol due to chronic kidney failure Pulmonology on board Had a trial of Bippap last night Doppler of LE showed no evidence of DVT Saturated well on RA today 2 step exercise done today and patient required 2L NC with ambulation bdc manager notified and arranged for a portable oxygen supplement (3) Dizziness: Due to orthostatic hypotension BP started to elevated BP meds resume on discharge Monitor BP (4) Fibromyalgia: Chronic pain continue duloxetine and gabapentin Continue tramadol PRN (5) RLS (restless legs syndrome): Continue ropinirole HS (6) ELISSA on CPAP: Continue Cpap (7) Depression with anxiety: Pt said that she has been on Clonazepam for years On clonazepam and duloxetine Consider to taper off clonazepam and add maintenance med to control anxiety and depression Will defer to PCP (8) Hypothyroidism: Continue levothyroxine (9) CHF (congestive heart failure): She has been on lasix 80mg BID for months Experienced epizodes of dizziness with orthostatic hypotension Lasix was resumed at 40mg BID while in the hospital Will discharge on Lasix 60mg BID Will need to monitor closely for fluid overload Will need daily weight check and if weight increases by more than 2 lbs over 24hrs , she will take an additional 20mg lasix Follow up with cardiology Monitor BMP CKD stage 3 Creatinine on admission 2.06 Possible related to over diurese baseline seems to be in the 1.7 Lasix was on hold, then resumed at 40mg BID during the hospital course Will discharge on lasix 60mg BID Check BMP in 1 week Headache Hx of chronic migraine No focal neuro deficit Advised pt to use OTC riboflavin Clinically Improved Headache improved DVT px on SCDs Allergic with heparin (HIT) CODE status Full code Disposition Follow up with your PCP Dr Whiteside on 03/05 @ 12:55 PM Total Time Total Time Spent Total Time Spent (In Minutes): 35 minutes Total Time Includes: Examination of the Patient, Discharge Planning, Medication Reconciliation, Communication With Other Providers and Other Discharge Plan Discharge Items Patient Disposition: Home - Self-Care Reason For Visit: FALL Discharge Diagnosis: Fall Acute respiratory failure with hypoxia and hypercapnia: Dizziness RLS (restless legs syndrome): ELISSA on CPAP: Depression/Anxiety: CHF DM type 2 CKD stage 3 Fibromyalgia Headache Discharge Goals: Decrease discomfort, Improve disease control, Improve function and Increase independence Activity: Resume your previous activity Activity Comment: as tolerated Non-emergency contact: Primary Care Provider and [employer] Installer Call non-emergency contact if: you have any medication questions Follow-up/Referrals: Kevin Whiteside DO [Primary Care Provider] - Diet: Carb Consistent or DM2 and Heart Healthy Addtl Provider Instructions: Follow up with your primary care provider Dr. Whiteside on 03/05 @ 12:55 PM Please call to schedule a follow up appointment with your cardiology Check BMP within 1 week to monitor electrolytes and kidney function (your physician will order it) Continue physical and occupational therapy Fall precaution (do not get up too quick, always get up slowly and hold the edge of the bed or a chair when standing from a supine or sitting position) Continue oxygen with 2L NC with ambulation and at night with your Cpap Monitor your blood sugar Monitor your blood pressure Please check your weight daily (if weight increases by more than 2lbs over 24 hrs or you develop swelling in your legs, take an additional 20mg lasix) do not drive or operate any machine after taking clonazepam Hold the next dose of clonazepam if you feel drowsy or lethargy Prescriptions: New furosemide [Lasix] 20 mg tablet 60 mg PO DAILY 30 Days Qty: 90 RF: 0 Continued clonazepam 0.5 mg Tablet 0.5 mg PO BID RF: 0 levothyroxine 25 mcg Tablet 25 mcg PO DAILY RF: 0 levothyroxine 200 mcg Tablet 200 mcg PO DAILY RF: 0 metoprolol tartrate 25 mg Tablet 12.5 mg PO BID RF: 0 nortriptyline [Pamelor] 50 mg Capsule 50 mg PO HS RF: 0 omeprazole 20 mg Capsule,Delayed Release(Dr/Ec) 20 mg PO HS RF: 0 liraglutide 3 mg/0.5 mL (18 mg/3 mL) Pen Injector 1.8 mg SUBCUT QPM RF: 0 lisinopril 2.5 mg tablet 2.5 mg PO DAILY RF: 0 Novolog Flexpen U-100 Insulin 100 unit/mL insulin pen 1 sliding scale dose subcut AC RF: 0 Tresiba FlexTouch U-200 200 unit/mL (3 mL) insulin pen 160 units subcut HS RF: 0 cyclobenzaprine 10 mg Tablet 10 mg PO HS PRN (Reason: Muscle Spasm) RF: 0 ergocalciferol (vitamin D2) [Vitamin D2] 50,000 unit Capsule 50,000 unit PO WK RF: 0 duloxetine 60 mg capsule,delayed release(DR/EC) 60 mg PO DAILY RF: 0 gabapentin 300 mg 300 mg PO TID RF: 0 spironolactone 25 mg 12.5 mg PO DAILY RF: 0 Mag 64 64 mg 64 mg PO BID RF: 0 Changed ropinirole [Requip] 4 mg Tablet 2 mg PO HS Qty: 0 RF: 0 Discontinued furosemide 80 mg tablet 80 mg PO BID RF: 0 Stand-Alone Forms: [facility] Discharge Orders: Discharge Order (Routine); Ordered 03/04/19 Ordered By: Vidal De Leon Admission Data Admit Date/Time: 02/27/19 00:48 Attending Provider: Vidal De Leon Admit Provider: Abhilash Montes Primary Care Provider: Kevin Whiteside Other Providers: Abhilash Montes ; Uriel Ugarte ; Moncho Daigle Service: Telemetry Medical Other Interventions: Discharge Summary Assessment (RN) Last Done: 03/04/19 16:21 DC Date/Time DO NOT enter until pt leaves facility: 03/04/19 17:33
== END 2019-03-04 17:33 | disposition home or self-care (01) | DRG 189 ==
LOC: ED 15:50 → 2N 02-27 00:48 → SUATTDRO 02-27 00:48 → 2N 02-27 01:19

== ENCOUNTER 2019-05-09 00:05 | Observation (INO) ==
[2019-05-09 01:46] LABS: Basophils # (auto) 0.05 K/uL (0-0.2); Basophils % (auto) 0.4 %; Eosinophils % (auto) 3.6 %; Hematocrit (blood only) 38.3 % (37-47); Hemoglobin 12.7 g/dL (12.0-16.0); Immature Granulocytes # (auto) 0.12 K/uL (0.00-0.02); Immature Granulocytes % (auto) 0.9 %; Lymphocytes % (auto) 21.4 %; Mean Corpuscular Hgb Conc 33.2 g/dL (32-36); Mean Corpuscular Volume 91.8 fL (80-100); Mean Platelet Volume 9.5 fL (7.4-10.4); Neutrophils # (auto) 9.63 K/uL (1.4-6.5); Neutrophils % (auto) 68.7 %; Platelet Count 300 K/uL (130-400); RDW Coefficient of Variation 15.4 % (11.5-14.5); RDW Standard Deviation 51.8 fL (36.4-46.3); Red Blood Count 4.17 M/uL (4.2-5.4)
[2019-05-09 02:01] LABS: Appearance Urine Clear (Clear); Bacteria Urine Automated Negative (Negative); Bilirubin Urine Negative (Negative); Blood Urine Negative (Negative); Cast Urine Automated 0 /lpf (0-5); Color Urine Yellow; Epithelial Cell Urine Auto >30 /lpf (0-5); Glucose Urine UA Negative (Negative); Ketones Urine Negative (Negative); Leukocyte Esterase Urine Trace (Negative); Nitrite Urine Negative (Negative); Protein Urine Negative (Negative); RBC Urine Automated 0-4 /hpf (0-4); Specific Gravity Urine 1.012 (1.000-1.030); Urobilinogen Urine Negative (Negative)
[2019-05-09 02:30] LABS: Chloride 94 mmol/L (98-107); Potassium 3.5 mmol/L (3.5-5.1); Sodium 134 mmol/L (136-145)
[2019-05-09 02:36] LABS: Blood Urea Nitrogen 37 mg/dl (7-18); Calcium 8.5 mg/dl (8.5-10.1); Carbon Dioxide 29 mmol/L (21-32); Glucose 282 mg/dl (70-99); Magnesium 1.8 mg/dl (1.8-2.4)
[2019-05-09 02:38] LABS: Alanine Aminotransferase 23 U/L (12-78); Aspartate Aminotransferase 19 U/L (15-37); BUN Creatinine Ratio 15.9 (10-20); Bilirubin,Total 0.4 mg/dl (0.2-1); Creatinine Clr Calc Pharmacy 35.6 ml/min; Est GFR (African American) 24.7; Est GFR (Non-African American) 21.3
[2019-05-09 02:42] LABS: Albumin Globulin Ratio 0.6 (0.9-2); Alkaline Phosphatase 84 U/L (45-117); Globulin 4.8 gm/dl (2.5-4.0); NT Pro B Type Natriuretic Pept 68 pg/ml (0-900); Total Protein 7.8 gm/dl (6.4-8.2); Troponin I < 0.015 ng/ml (0-0.045)
[2019-05-09] MEDS ORDERED: SODIUM CHLORIDE 0.9% 500 ML IV ONE (02:47)
[2019-05-09] MEDS ORDERED: SODIUM CHLORIDE 0.9% 1000ML 1,000 ML IV SCH (04:56)
[2019-05-09] MEDS ORDERED: POLYETHYLENE (MIRALAX) 17 GM PACK PO PRN (04:56)
[2019-05-09] MEDS ORDERED: NITROGLYCERIN SL 0.4 MG/TAB TAB SL PRN (04:56)
[2019-05-09] MEDS ORDERED: ONDANSETRON INJ 2 MG/ML 2 ML VIAL IV PRN (04:56)
[2019-05-09] MEDS ORDERED: PHARMACY GLYCEMIC MGMT CONSULT PRN (05:08)
--- NOTE | 2019-05-09 05:12 | Emergency Department Note ---
History of Present Illness General Chief complaint: Urinary Symptoms Stated complaint: RETAINING FLUID, KIDNEYS NOT WORKING WELL Time Seen by Provider: 05/09/19 00:13 History of Present Illness Maximum Pain Intensity: 5 This is a 64-year-old female presenting to the emergency department with multiple complaints. The patient feels generally weak with muscle cramping and spasm over the past few days. She does have multiple chronic illnesses including kidney disease, CHF, diabetes, and breathing difficulties. The patient is positive across multiple systems and complaints, however the weakness and spasm is the most acute of her symptoms. She evidently went to her primary care physician yesterday basic labs were performed. She was informed that her kidneys were worse than normal and that she should increase fluids. The patient has been drinking water, but does not feel like she is peeing as much as normal. The patient rates her overall discomfort a 5/10. Home Medications Home Medications Medication Instructions Recorded Confirmed Type clonazepam 0.5 mg PO BID 06/09/18 05/09/19 History levothyroxine 25 mcg PO DAILY 06/09/18 05/09/19 History levothyroxine 200 mcg PO DAILY 06/09/18 05/09/19 History metoprolol tartrate 12.5 mg PO BID 06/09/18 05/09/19 History nortriptyline [Pamelor] 50 mg PO HS 06/09/18 05/09/19 History omeprazole 20 mg PO HS 06/09/18 05/09/19 History liraglutide 1.8 mg SUBCUT WK 06/10/18 05/09/19 History cyclobenzaprine 10 mg PO HS PRN 12/08/18 05/09/19 History ergocalciferol (vitamin D2) 50,000 unit PO WK 12/08/18 05/09/19 History [Vitamin D2] duloxetine 60 mg PO DAILY 12/23/18 05/09/19 History ropinirole [Requip] 2 mg PO HS #0 tab 03/04/19 05/09/19 Rx furosemide [Lasix] 60 mg PO DAILY 05/09/19 05/09/19 History gabapentin 300 mg PO TID 05/09/19 05/09/19 History insulin aspart U-100 [Novolog 1 sliding scale dose CONTINUOUS 05/09/19 05/09/19 History U-100 Insulin aspart] SUBCUTANEOUS INFUSION USEASDIRECTD magnesium chloride 64 mg PO BID 05/09/19 05/09/19 History spironolactone 12.5 mg PO DAILY 05/09/19 05/09/19 History trazodone 50 mg PO DAILY 05/09/19 05/09/19 History Allergies Allergy/AdvReac Type Severity Reaction Status Date / Time tetanus toxoid, adsorbed Allergy Mild PASSED OUT Verified 05/09/19 03:40 AND GOT SICK WHEN A CHILD codeine Allergy Unknown Hallucinati Verified 05/09/19 03:40 ons heparin Allergy Unknown HIT; FLUID Verified 05/09/19 03:40 IN LUNGS morphine Allergy Unknown VIOLENT Verified 05/09/19 03:40 REACTION-"ALMOST " SWELLING Past Med/Surg History Medical History CKD (chronic kidney disease), stage III (Chronic) History of thyroidectomy, total (Resolved) ELISSA on CPAP (Chronic) HTN (hypertension) (Chronic) HLD (hyperlipidemia) (Chronic) Morbid obesity (Chronic) 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) Depression with anxiety (Chronic) Hypothyroidism (Chronic) History of pulmonary embolism (Chronic) s/p zoraida filter GERD (gastroesophageal reflux disease) (Chronic) RLS (restless legs syndrome) (Chronic) History of DVT (deep vein thrombosis) (Resolved) Presence of IVC filter (Chronic) Fibromyalgia (Chronic) Diabetes (Chronic) Sepsis (Resolved) Surgical History History of cholecystectomy (Resolved) History of total right knee replacement (Resolved) History of tracheostomy (Resolved) 2010, secondary to acute resp failure secondary to pneumonia[place] [facility] [place] of colon resection (Resolved) secondary to R colon perforation, resected treated with colostomy and eventual reversal in 2008, Dr. Lerma Social History Preferred Language: Bangladeshi Communication Ability: Effective Respiratory Supervisor Required: No Beliefs That Will Affect Care: None Current Living Situation: Alone Other Information That Helps Us Care for You: No Feels Safe at Home: Yes Safety Concerns: Feels Safe At This Time Smoking Status: Former smoker Tobacco Type: cigarettes ; Cigarettes Per Day: 15 pack year hx ; Second Hand Exposure: No ; Hx Alcohol Use: No Hx Substance Use: No Review of Systems A total of 10 systems reviewed and were otherwise negative Physical Exam Vital Signs Vital Signs - 24 hr 05/09/19 00:08 05/09/19 02:30 05/09/19 03:00 Temperature 36.8 C Temperature Source Oral Sepsis Recent Fever Within 48 Hours No Sepsis New/Unexplained Change in Mental Status No Sepsis Action Taken by Nursing No Action Required Pulse Rate 107 H Pulse Rate [Apical] 95 H 103 H Pulse Rhythm [Apical] Regular Regular Respiratory Rate 32 H 22 23 Respiratory Effort / Characteristics Non-Labored Spontaneous Respiratory Depth Normal Respiratory Pattern Regular Blood Pressure 122/78 Blood Pressure [Left Radial Artery] 128/62 111/53 L Blood Pressure Mean 92 Blood Pressure Mean [Left Radial Artery] 84 72 Pulse Oximetry 91 92 92 Oxygen Delivery Method Nasal Cannula Nasal Cannula Nasal Cannula Oxygen Flow Rate 2 2 3 VITALS: Vitals are noted on the nurse's note and reviewed by myself. Vital signs with tachycardia and tachypnea. She is on oxygen. GENERAL: Chronically ill, obese, white female who is older appearing than her stated age. HEAD: Normocephalic atraumatic. HEART: Regular rate and rhythm LUNGS: Clear to auscultation bilaterally without wheezes, rales or rhonchi. No retractions or accessory muscle use. ABDOMEN: Positive normal bowel sounds x 4. Soft, nontender, without masses or organomegaly. MUSCULOSKELETAL: No muscle atrophy, erythema, or edema noted. Full range of motion in all extremities. No significant pretibial edema NEURO: Patient was alert and oriented to person place and time. CN II through XII grossly intact. SKIN: The skin was without rashes, erythema, edema, or bruising. Capillary refill less than 2 seconds. Course Administered Medications Acetaminophen (Tylenol) 650 mg PO Q4H PRN PRN Reason: Pain or Fever Stop: 06/08/19 04:55 Last Admin: 05/09/19 05:22 Dose: 650 mg Documented by: [id number] Sodium Chloride (Nss 1000ml) 1,000 mls @ 75 mls/hr IV .[id number] [facility] Stop: 06/08/19 04:55 Last Admin: 05/09/19 05:23 Dose: 75 mls/hr Documented by: [id number] Insulin Aspart (Novolog Flexpen) 0 units SC Q6 ROBERT; Protocol Stop: 06/08/19 05:29 Last Admin: 05/09/19 05:53 Dose: 12 units Documented by: [id number] Cosigned by: [id number] Insulin Human NPH (Novolin N Nph) 50 units SC BIDM [facility]; Protocol Stop: 06/08/19 05:29 Last Admin: 05/09/19 05:52 Dose: 50 units Documented by: [id number] Cosigned by: [id number] Levothyroxine Sodium (Synthroid) 25 mcg PO DAILYBB [facility] Stop: 06/08/19 06:29 Last Admin: 05/09/19 05:53 Dose: 25 mcg Documented by: [id number] Levothyroxine Sodium (Synthroid) 200 mcg PO DAILYBB [facility] Stop: 06/08/19 06:29 Last Admin: 05/09/19 05:53 Dose: 200 mcg Documented by: [id number] Discontinued Medications Sodium Chloride (Nss) 500 mls @ 999 mls/hr IV .Q31M ONE Stop: 05/09/19 03:17 Last Infusion: 05/09/19 03:40 Dose: 0 mls/hr Documented by: [id number] Admin: 05/09/19 02:58 Dose: 999 mls/hr Documented by: [id number] Medical Decision Making Differential Diagnosis Differential diagnosis includes, but is not limited to: Myocardial infarction, dysrhythmia, pericarditis, pneumothorax, aortic aneurysm/dissection, DVT/PE, anxiety, GERD, PUD, electrolyte imbalance, thyroid disorder, pneumonia, bronchitis, pancreatitis, and others Laboratory Data Result diagrams: 05/09/19 01:38 05/09/19 01:38 Lab Results 05/09/19 05/09/19 05/09/19 Range/Units 01:38 01:38 01:50 WBC 14.00 H (4.8-10.8) K/uL RBC 4.17 L (4.2-5.4) M/uL Hgb 12.7 (12.0-16.0) g/dL Hct 38.3 (37-47) % MCV 91.8 (80-100) fL MCH 30.5 (25-34) pg MCHC 33.2 (32-36) g/dL RDW Std Deviation 51.8 H (36.4-46.3) fL RDW Coeff of Adolfo 15.4 H (11.5-14.5) % Plt Count 300 (130-400) K/uL MPV 9.5 (7.4-10.4) fL Immature Gran % (Auto) 0.9 % Neut % (Auto) 68.7 % Lymph % (Auto) 21.4 % [place] % (Auto) 5.0 % Eos % (Auto) 3.6 % Baso % (Auto) 0.4 % Immature Gran # (Auto) 0.12 H (0.00-0.02) K/uL Neut # (Auto) 9.63 H (1.4-6.5) K/uL Lymph # (Auto) 3.00 (1.2-3.4) K/uL [place] # (Auto) 0.70 H (0.11-0.59) K/uL Eos # (Auto) 0.50 (0-0.5) K/uL Baso # (Auto) 0.05 (0-0.2) K/uL Sodium 134 L (136-145) mmol/L Potassium 3.5 (3.5-5.1) mmol/L Chloride 94 L (98-107) mmol/L Carbon Dioxide 29 (21-32) mmol/L Anion Gap 11.0 (3-11) BUN 37 H (7-18) mg/dl Creatinine 2.34 H (0.6-1.2) mg/dl Est Cr Clr Drug Dosing 35.6 ml/min Est GFR ( Amer) 24.7 Est GFR (Non-Af Amer) 21.3 BUN/Creatinine Ratio 15.9 (10-20) Glucose 282 H (70-99) mg/dl Calcium 8.5 (8.5-10.1) mg/dl Magnesium 1.8 (1.8-2.4) mg/dl Total Bilirubin 0.4 (0.2-1) mg/dl AST 19 (15-37) U/L ALT 23 (12-78) U/L Alkaline Phosphatase 84 (45-117) U/L Troponin I < 0.015 (0-0.045) ng/ml NT-Pro-B Natriuret Pep 68 (0-900) pg/ml Total Protein 7.8 (6.4-8.2) gm/dl Albumin 3.0 L (3.4-5.0) gm/dl Globulin 4.8 H (2.5-4.0) gm/dl Albumin/Globulin Ratio 0.6 L (0.9-2) Urine Color Yellow Urine Appearance Clear (Clear) Urine pH 6.0 (4.5-7.5) Ur Specific [place] 1.012 (1.000-1.030) Urine Protein Negative (Negative) Urine Glucose (UA) Negative (Negative) Urine Ketones Negative (Negative) Urine Blood Negative (Negative) Urine Nitrite Negative (Negative) Urine Bilirubin Negative (Negative) Urine Urobilinogen Negative (Negative) Ur Leukocyte Esterase Trace H (Negative) Urine WBC (Auto) 10-30 H (0-5) /hpf Urine RBC (Auto) 0-4 (0-4) /hpf U Hyaline Cast (Auto) 0 (0-5) /lpf U Epithel Cells (Auto) >30 H (0-5) /lpf Urine Bacteria (Auto) Negative (Negative) ECG Data Additional Comments: EKG #1 Normal sinus rhythm at [address] elevation When compared with ECG of 26-FEB-2019 16:38, no significant change was found EKG#2 Accelerated Junctional rhythm @95 bpm Low voltage QRS Abnormal ECG When compared with ECG of 09-MAY-2019 00:45, Junctional rhythm has replaced Sinus rhythm MDM Narrative Physical exam and history were performed. Nursing notes, EMR, and Medication List were personally reviewed. Patient appears to have multiple complaints bringing her to the emergency department today. After discussion with the patient it sounds like she had some elevation of her kidney function on outpatient labs. On examination she appears chronically ill and is on oxygen. She is morbidly obese but not toxic. She has many chronic complaints, and I did review her recent PCP visit. She did have outpatient labs, which have elevated BUN and creatinine readings. Additionally the patient has an elevated outpatient troponin based on the [employer] system. IV access was established and labs were obtained. EKGs were performed x2, and the initial EKG was unchanged from previous. Her second EKG appears to have accelerated junctional rhythm. The patient was placed on the property assessment monitor. She was gently hydrated with normal saline to prevent putting her into heart failure. The patient's blood work is as above and was reviewed. She does have a white blood cell count elevation of 14,000. She does not have a significant anemia or gross electrolyte imbalance. Troponin here is negative. Creatinine is 2.34. The patient was reevaluated multiple times throughout the course of her stay. She was able to rest comfortably here in the ER. I did discuss the case with my attending physician, and overall we have concern as the patient seems to be having change in EKGs with an outpatient elevated troponin yesterday. I did discuss the case with the on-call hospitalist, and they did agree to evaluate the patient here in the department. Please see their dictation for further patient course, plan, and disposition. The chart was completed utilizing [employer] Speech Voice Recognition Software. Grammatical errors, random word insertions, pronoun errors, and incomplete sentences are an occasional consequence of this system due to software limitations, ambient noise, and hardware issues. Any formal questions or concerns about the content, text, or information contained within the body of this dictation should be directly addressed to the provider for clarification. . Impression & Plan Weakness, Acute on chronic kidney failure Discharge Plan Visit Data *Final* Discharge Date/Time: 05/09/19 04:31 Chief Complaint: Urinary Symptoms Stated Complaint: RETAINING FLUID, KIDNEYS NOT WORKING WELL ED Provider: Marleny Lockwood ED Midlevel Provider: Kedar Fulton Discharge Problem: Weakness, Acute on chronic kidney failure Patient Disposition: Admitted As Inpatient Discharge Instructions Interventions: ED Discharge Assessment Last Done: 05/09/19 04:31
[2019-05-09] MEDS: ACETAMINOPHEN 325 MG TAB PO PRN ×2 (05:22→12:57)
[2019-05-09] MEDS ORDERED: INSULIN ASPART 100 UNITS/ML 3 ML PEN SC SCH (05:30)
[2019-05-09] MEDS: INSULIN HUMAN NPH SC SCH ×2 (05:52→17:07)
[2019-05-09] MEDS: LEVOTHYROXINE SODIUM 200 MCG TABLET PO SCH (05:53)
[2019-05-09] MEDS: LEVOTHYROXINE SODIUM 25 MCG TABLET PO SCH (05:53)
--- NOTE | 2019-05-09 06:00 | History and Physical Report ---
DATE OF ADMISSION: 05/09/2019 CHIEF COMPLAINT: Body cramps, not feeling well. HISTORY OF PRESENT ILLNESS: This is a 64-year-old female with past medical history significant for type 2 diabetes, hyperlipidemia, hypothyroidism, obstructive sleep apnea, on CPAP, history of nocturnal hypoxia, chronic respiratory failure requiring 2 liters oxygen all the time, chronic diastolic CHF, history of pulmonary embolism status post Frank filter, renal insufficiency, hypertension, morbid obesity, GERD, fibromyalgia, restless leg syndrome, generalized anxiety disorder, depression, statin intolerance, who lives alone, ambulates with a cane, presents with not feeling well, with generalized body aches, feeling weak and cramps, went to PCP yesterday. Labs showed a creatinine of 2.19. High sensitivity troponin was 28, so she was called for admission. The patient currently says she has cramps all over the body. She might have had some chest discomfort more like a gas bloating. Denies any headache, no blurred vision, no earache, no runny nose, no sore throat, no cough, no fever, no chills, no nausea. She has some bloating feeling in the lower abdomen. No diarrhea, no constipation, no blood in stool or black stools. She says PCP told her to drink a lot of water. She is drinking lot of water, but she did not make much urine today. No burning micturition, no hematuria. ALLERGIES: JARDIANCE, HEPARIN, MORPHINE AND TETANUS. PAST MEDICAL HISTORY: As mentioned above. PAST SURGICAL HISTORY: Right total knee arthroplasty, colonoscopy, tracheostomy, left knee arthroscopy, gastrostomy, thyroidectomy, cholecystectomy, repair of incisional hernia, revision of the colostomy, perforated colon with colostomy, IVC filter. MEDICATIONS: Currently, the patient is on magnesium oxide 400 mg p.o. every other day, oxygen 2 liters through CPAP , currently using oxygen 18/04, Semaglutide 0.2 mg once weekly for 2 weeks and 0.5 mg weekly, trazodone 50 mg p.o. at bedtime, Tresiba 160 units subcutaneous once daily, Klonopin 0.5 mg p.o. b.i.d., insulin pump, Lasix 60 mg p.o. b.i.d., Requip 2 mg p.o. at bedtime, metoprolol 12.5 mg p.o. b.i.d., levothyroxine 225 mcg p.o. daily, vitamin D 50,000 units once a week, spironolactone 12.5 mg p.o. daily, gabapentin 300 mg p.o. t.i.d., Cymbalta 60 mg p.o. daily, cyclobenzaprine 10 mg p.o. t.i.d. p.r.n., nortriptyline 50 mg p.o. at bedtime, Colace 100 mg p.o. b.i.d. p.r.n., Prilosec 20 mg p.o. daily. FAMILY HISTORY: Significant for father of lung cancer at the age of 74. Mother had liver cancer at age of 45. Mother of heart disorder at age of 45. Paternal grandfather had colon cancer and diabetes. SOCIAL HISTORY: Single, former smoker, quit in 1996. Smoked 1 pack a day for 15 years. Alcohol rare. No drug use. REVIEW OF SYMPTOMS: As per HPI. Rest of review of systems negative. PHYSICAL EXAMINATION: GENERAL: The patient is morbidly obese, not in acute distress. VITAL SIGNS: Temperature 36.8, pulse 103, respiratory rate 22, blood pressure 111/53, oxygen 92% on 3 liters. HEENT: No pallor, no icterus. Pupils equal, round, reactive to light. NECK: No JVD, no neck masses, no carotid bruits. CARDIOVASCULAR: S1, S2 heard. Tachycardia. No murmurs. RESPIRATORY SYSTEM: Normal AP diameter. No accessory muscle use. No wheezing, bibasilar crackles. ABDOMEN: Soft, bowel sounds present, nontender. No distention. CENTRAL NERVOUS SYSTEM: Cranial nerves II-XII grossly intact, nonfocal. EXTREMITIES: No edema, no erythema. LABORATORY DATA: WBC 11.14. WBC 14, hemoglobin 12.7, hematocrit 38.3, platelets 300. Sodium 134, potassium 3.5, chloride 94, CO2 of 29, BUN 37, creatinine 2.3, serum glucose 282, calcium 8.5, magnesium 1.8, total bilirubin 0.4, AST is 19, ALT 23, alkaline phosphatase 84. Troponin I less than 0.015. BNP 68. Urinalysis negative. EKG: Normal sinus rhythm with rate of 100, no significant change found. ASSESSMENT AND PLAN: This is a 64-year-old female who presents with generalized body aches and cramps, fatigue and found to have acute kidney injury. 1. Acute kidney injury on chronic kidney disease stage III. Baseline creatinine around 1.6. Presented with Cr 2.3. Holding Lasix and Aldactone . Gentle fluids. We will follow labs 2 .generalized weakness, fatigue possibly from alissa. from meds? will hold Flexeril.Follow cpk levels. 3. Restless leg syndrome, on Requip , Klonopin, gabapentin. 3. Diabetes. She wants to keep her insulin pump. Hold other home medications. ISS. Consult glycemic pharmacy. 4. Hypothyroidism. Continue home Synthroid. 5. History of chronic diastolic congestive heart failure, chronic respiratory failure, on 2 liters oxygen all the time. Holding the diuretics. On fluids. We will monitor for volume overload. 6. Sleep apnea. CPAP at bedtime. 7. depression. Continue Cymbalta, Klonopin and nortriptyline. 8. GERD.Continue PPI. 9. History of pulmonary embolism, Not on anticoagulation, status post IVC filter. 10.. Deep venous thrombosis prophylaxis, SCDs for now . Hx of HIT DISPOSITION: Admit to observation tele floor. PT and OT prior to discharge. Social Service to help with discharge planning. HEIDI
[2019-05-09 06:39] LABS: Creatine Kinase 103 U/L (26-192); Troponin I < 0.015 ng/ml (0-0.045)
[2019-05-09] MEDS: TRAZODONE HCL 50 MG TAB PO SCH (07:44)
[2019-05-09] MEDS: MAGNESIUM CHLORIDE 64MG DELAYED REL TAB PO SCH ×2 (07:44→20:08)
[2019-05-09] MEDS: DULOXETINE HCL 60 MG CAP PO SCH (07:45)
[2019-05-09] MEDS: CYCLOBENZAPRINE HCL 10 MG TAB PO PRN ×2 (07:45→19:43)
[2019-05-09] MEDS: METOPROLOL TARTRATE 25 MG TAB PO SCH ×2 (07:45→20:03)
[2019-05-09] MEDS: GABAPENTIN 300 MG CAP PO SCH ×3 (07:45→20:06)
[2019-05-09] MEDS: clonazePAM 0.5 MG TAB PO SCH ×2 (09:30→20:12)
[2019-05-09] MEDS ORDERED: BACLOFEN 10 MG TAB PO SCH (10:15)
--- NOTE | 2019-05-09 11:24 | Pharmacy Report ---
Glycemic Control Consultation - Date of Service May 09, 2019 - Scope Scope: Glycemic Pharmacist consulted by Dr Montes on 05/09 for glycemic control and to write orders per [facility] inpatient glycemic control protocol - Objective Weight: 151.953 kg Accuchecks BSG (last 24hrs): 05/09/19 05/09/19 01:38 05:06 Glucose 282 H POC Glucose 273 H Laboratory Data (last 24hrs): 05/09/19 01:38 Potassium 3.5 Carbon Dioxide 29 Anion Gap 11.0 Creatinine 2.34 H Est Cr Clr Drug Dosing 35.6 - Recent Pertinent Medications Outpatient Anti-diabetic Regimen: * Novolog insulin pump (managed by Nga BAER) - [id number] 630G * Basal rate - 4 units/hr * Bolus - 20 units w/ breakfast, 20 units w/ lunch, 20 units w/ supper and 8 units with HS snack (CR - 4) * CF - 14 * Goal 120-150 * Ozempic 0.25 mg weekly x 2 weeks, then 0.5 mg weekly (started on 05/01) * A1c = 11 % 02/27/19 The patient is currently receiving: * Basal insulin: NPH 50 units every 12 hours * Correctional Insulin: Novolog Correction per scale ACHS Goal Range: Low 120 mg/dL - High 160 mg/dL Correction Factor: 10 mg/dL/unit * Prandial insulin: Per carb ratio of 1 unit per 4 grams CHO consumed Risk Factors for Insulin Resistance: * Diet: just advanced to type 2 diabetes - Assessment & Plan Assessment & Plan: ASSESSMENT: * 64 y/o female with type 2 diabetes, admitted for ELSIE. She is known to the pharmacy glycemic service from previous admissions. She has since been transitioned to an insulin pump, with a recent increase in her basal rate from 3 units/hr to 4 units/hr (96 units/day of basal). * Her pump was removed on admission and she was transitioned to basal/bolus injections in the form of NPH and Novolog, for easier transition back to pump on discharge. NPH has been dosed similar to basal requirements on pump. Will plan to tighten Novolog parameters now that po intake increased as well as add an overnight check in case additional coverage is needed overnight. PLAN FOR INPATIENT GLYCEMIC CONTROL: * Basal insulin * NPH 50 units SQ BID * Bolus insulin * NovoLog per scale ACHS or Q6hrs while NPO + 0200 check * Goal Range: Low 120 mg/dL - High 150 mg/dL * Correction Factor: 10 mg/dL/unit * Nutritional / Prandial insulin per carb ratio of 1 unit per 3 grams CHO consumed Discharge Recommendations: * Patient follows closely with [facility] clinic. Ozempic recently added and basal rate recently increased on pump. Recommend to resume insulin pump and Ozempic on discharge and f/u with outpatient clinic Thank you.
[2019-05-09] MEDS: INSULIN ASPART 100 UNITS/ML 3 ML PEN SC SCH ×3 (11:41→20:10)
--- NOTE | 2019-05-09 11:41 | Hospitalist Progress Note ---
Date of Service May 09, 2019 Assessment & Plan (1) Generalized body aches: Present on admission with generalized body ache and cramps Hx of fibromyalgia CPK WNL Continue Gabapentin/flexeril/palmelor Will add lidocaine patch (2) Acute kidney injury: (3) CKD (chronic kidney disease), stage III: Mostly related to diuretic Creatinine on admission 2.3 Creatinine baseline seems to be in the 1.7 Lasix and spironolactone on hold Monitor BMP (4) Chest pain: Atypical in presentation Mostly related to muscle Troponin x2 sets negative EKG showed no ischemic changes Echo pending (4) Fibromyalgia: Chronic pain continue duloxetine and gabapentin Continue tramadol PRN (5) RLS (restless legs syndrome): Continue ropinirole HS (6) ELISSA on CPAP: Continue Cpap (7) Depression with anxiety: She has been on Clonazepam for years On clonazepam and duloxetine Consider to taper off clonazepam and add maintenance med to control anxiety and depression Will defer to PCP (8) Hypothyroidism: Continue levothyroxine (9) CHF (congestive heart failure): Lasix and spironolactone on hold due to worsening renal function No sign of fluid overload DVT px on SCDs Allergic with heparin (HIT) CODE status Full cod Subjective Pt was seen and examined Lying in bed with no distress Pt said that she feels sore all over She said that her muscles feels very achy Any part in her body that I touched, she complaints of pain Currently denies any chest pain, palpitation, dizziness and SOB Physical Exam Physical Exam: General- No acute distress Head- atraumatic Eyes- PERRL, EOMI, ENT- oropharynx clear Neck- supple, no JVD Lungs- clear to auscultation Heart- regular rhythm; no murmur Abdomen- normal bowel sounds, soft, +tender with palpation, +obese Extremities- no calf tenderness Neuro- alert, oriented x 3; PERRL, EOMI; no facial palsy; no dysarthria Skin- warm & dry Results & Data Vital Signs (Past 12 Hours) Vital Signs Temp Pulse Pulse Pulse Resp BP BP 05/09/19 07:40 36.6 C 89 20 99/63 L 05/09/19 04:59 37.5 C 91 H 16 05/09/19 04:26 103 H 25 H 05/09/19 03:00 103 H 23 05/09/19 02:30 95 H 22 05/09/19 00:08 36.8 C 107 H 32 H 122/78 BP Pulse Ox 05/09/19 07:40 93 05/09/19 04:59 120/70 93 05/09/19 04:26 106/75 92 05/09/19 03:00 111/53 L 92 05/09/19 02:30 128/62 92 05/09/19 00:08 91
[2019-05-09] MEDS ORDERED: PERFLUTREN LIPID MICROSPHERE (DEFINITY) IV ONE (13:38)
[2019-05-09] MEDS: TRAMADOL HCL 50 MG TABLET PO PRN (14:26)
[2019-05-09] MEDS ORDERED: ROPINIROLE HCL 1 MG TABLET PO SCH (21:00)
[2019-05-09] MEDS ORDERED: NORTRIPTYLINE HCL 25 MG CAP PO SCH (21:00)
[2019-05-09] MEDS ORDERED: PANTOprazole 40 MG TAB PO SCH (21:00)
[2019-05-10] MEDS ORDERED: INSULIN ASPART 100 UNITS/ML 3 ML PEN SC ONE (02:00)
[2019-05-10] MEDS: TRAMADOL HCL 50 MG TABLET PO PRN (02:06)
[2019-05-10] MEDS ORDERED: LORATADINE 10 MG TAB PO ONE (02:52)
[2019-05-10] MEDS: LEVOTHYROXINE SODIUM 25 MCG TABLET PO SCH (05:31)
[2019-05-10] MEDS: LEVOTHYROXINE SODIUM 200 MCG TABLET PO SCH (05:31)
[2019-05-10 05:40] LABS: Basophils # (auto) 0.03 K/uL (0-0.2); Basophils % (auto) 0.3 %; Eosinophils # (auto) 0.42 K/uL (0-0.5); Eosinophils % (auto) 4.5 %; Hematocrit (blood only) 38.9 % (37-47); Hemoglobin 12.6 g/dL (12.0-16.0); Immature Granulocytes # (auto) 0.06 K/uL (0.00-0.02); Immature Granulocytes % (auto) 0.6 %; Lymphocytes # (auto) 2.17 K/uL (1.2-3.4); Lymphocytes % (auto) 23.2 %; Mean Corpuscular Hgb Conc 32.4 g/dL (32-36); Mean Corpuscular Volume 92.8 fL (80-100); Mean Platelet Volume 9.3 fL (7.4-10.4); Monocytes # (auto) 0.52 K/uL (0.11-0.59); Monocytes % (auto) 5.5 %; Neutrophils # (auto) 6.17 K/uL (1.4-6.5); Neutrophils % (auto) 65.9 %; Platelet Count 265 K/uL (130-400); RDW Coefficient of Variation 15.6 % (11.5-14.5); RDW Standard Deviation 52.5 fL (36.4-46.3); Red Blood Count 4.19 M/uL (4.2-5.4); White Blood Count 9.37 K/uL (4.8-10.8)
[2019-05-10 06:06] LABS: BUN Creatinine Ratio 16.6 (10-20); Calcium 8.4 mg/dl (8.5-10.1); Creatinine Clr Calc Pharmacy 50.6 ml/min; Est GFR (African American) 37.4; Est GFR (Non-African American) 32.2; Magnesium 1.8 mg/dl (1.8-2.4); Potassium 3.6 mmol/L (3.5-5.1)
[2019-05-10 06:27] LABS: Estimated Average Glucose 258 mg/dl; Hemoglobin A1C 10.6 % (4.5-5.6)
[2019-05-10] MEDS: INSULIN ASPART 100 UNITS/ML 3 ML PEN SC SCH ×3 (07:57→17:02)
[2019-05-10] MEDS: METOPROLOL TARTRATE 25 MG TAB PO SCH (07:59)
[2019-05-10] MEDS: GABAPENTIN 300 MG CAP PO SCH ×2 (08:00→13:00)
[2019-05-10] MEDS: MAGNESIUM CHLORIDE 64MG DELAYED REL TAB PO SCH (08:00)
[2019-05-10] MEDS: DULOXETINE HCL 60 MG CAP PO SCH (08:00)
[2019-05-10] MEDS: TRAZODONE HCL 50 MG TAB PO SCH (08:00)
[2019-05-10] MEDS ORDERED: INSULIN HUMAN NPH SC SCH (08:00)
[2019-05-10] MEDS: ACETAMINOPHEN 325 MG TAB PO PRN (08:04)
[2019-05-10] MEDS: clonazePAM 0.5 MG TAB PO SCH (08:05)
--- NOTE | 2019-05-10 11:29 | Cardiology Consultation ---
Date of Consultation May 10, 2019 Assessment & Plan (1) Pickwickian syndrome: (2) Obesity hypoventilation syndrome: (3) Sleep apnea: (4) Diabetes: (5) CKD (chronic kidney disease) stage 2, GFR 60-89 ml/min: I had a discussion with the patient regarding the risk to her health and obesity. The only immediate treatment at this time is diuretics and nasal CPAP at night. I will start her on Lasix and add her Aldactone back which she takes at home. She had an echocardiogram completed in November that showed diastolic dysfunction, no significant valvular pathology and no evidence of right heart failure. I would not repeat this study. History of Present Illness Attending Physician: Vidal De Leon MD History of Present Illness This is a 64 morbidly obese, BMI 58, with pickwickian syndrome, obesity hypoventilation, sleep apnea, diabetes, chronic kidney disease, and chronic diastolic dysfunction. She was admitted with shortness of breath in which she describes as fluid overload because her kidneys were not working. No chest pain. No heart palpitations or tachycardia. After admission she has felt better following IV diuretics. Past medical history: 1. chronic diastolic HF, symptoms improving with titration of diuretic. 2. History of hypertensive heart disease/diastolic dysfunction. 3. Morbid obesity - weight loss encouraged. 4. Chronic respiratory failure, hypoventilation syndrome. 5. Statin intolerance Allergies Allergy/AdvReac Type Severity Reaction Status Date / Time tetanus toxoid, adsorbed Allergy Mild PASSED OUT Verified 05/09/19 03:40 AND GOT SICK WHEN A CHILD codeine Allergy Unknown Hallucinati Verified 05/09/19 03:40 ons heparin Allergy Unknown HIT; FLUID Verified 05/09/19 03:40 IN LUNGS morphine Allergy Unknown VIOLENT Verified 05/09/19 03:40 REACTION-"ALMOST " SWELLING Home Medications Home Medications Medication Instructions Recorded Confirmed Type clonazepam 0.5 mg PO BID 06/09/18 05/09/19 History levothyroxine 25 mcg PO DAILY 06/09/18 05/09/19 History levothyroxine 200 mcg PO DAILY 06/09/18 05/09/19 History metoprolol tartrate 12.5 mg PO BID 06/09/18 05/09/19 History nortriptyline [Pamelor] 50 mg PO HS 06/09/18 05/09/19 History omeprazole 20 mg PO HS 06/09/18 05/09/19 History liraglutide 1.8 mg SUBCUT WK 06/10/18 05/09/19 History cyclobenzaprine 10 mg PO HS PRN 12/08/18 05/09/19 History ergocalciferol (vitamin D2) 50,000 unit PO WK 12/08/18 05/09/19 History [Vitamin D2] duloxetine 60 mg PO DAILY 12/23/18 05/09/19 History ropinirole [Requip] 2 mg PO HS #0 tab 03/04/19 05/09/19 Rx furosemide [Lasix] 60 mg PO DAILY 05/09/19 05/09/19 History gabapentin 300 mg PO TID 05/09/19 05/09/19 History insulin aspart U-100 [Novolog 1 sliding scale dose CONTINUOUS 05/09/19 05/09/19 History U-100 Insulin aspart] SUBCUTANEOUS INFUSION USEASDIRECTD magnesium chloride 64 mg PO BID 05/09/19 05/09/19 History spironolactone 12.5 mg PO DAILY 05/09/19 05/09/19 History trazodone 50 mg PO DAILY 05/09/19 05/09/19 History Patient History Medical History CKD (chronic kidney disease), stage III (Chronic) History of thyroidectomy, total (Resolved) ELISSA on CPAP (Chronic) HTN (hypertension) (Chronic) HLD (hyperlipidemia) (Chronic) Morbid obesity (Chronic) 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) Depression with anxiety (Chronic) Hypothyroidism (Chronic) History of pulmonary embolism (Chronic) s/p zoraida filter GERD (gastroesophageal reflux disease) (Chronic) RLS (restless legs syndrome) (Chronic) History of DVT (deep vein thrombosis) (Resolved) Presence of IVC filter (Chronic) Fibromyalgia (Chronic) Diabetes (Chronic) Sepsis (Resolved) Surgical History History of cholecystectomy (Resolved) History of total right knee replacement (Resolved) History of tracheostomy (Resolved) 2010, secondary to acute resp failure secondary to pneumonia, transferred to [facility] [place] History of colon resection (Resolved) secondary to R colon perforation, resected treated with colostomy and eventual reversal in 2008, Dr. Lerma Family History Father , age 74 Lung cancer Mother , age 45 Cirrhosis Social History Preferred Language: Occitan Communication Ability: Effective Disability Attorney Required: No Beliefs That Will Affect Care: None marital status: Single Current Living Situation: Alone Other Information That Helps Us Care for You: No Feels Safe at Home: Yes Safety Concerns: Feels Safe At This Time Smoking Status: Former smoker Tobacco Type: cigarettes ; Cigarettes Per Day: 15 pack year hx ; Second Hand Exposure: No ; Hx Alcohol Use: No Hx Substance Use: No Review of Systems Review of Systems: All systems reviewed & are unremarkable except as noted in HPI & below Nothing additional to add. Physical Exam Physical Exam: General: no acute distress and stated age Head: normocephalic, no masses, lesions, tenderness or abnormalities Eyes: conjunctiva are pink and non-injected, sclera clear Neck: supple, no adenopathy, no bruits, normal jugular venous pulse, no hepatojugular reflux Chest: normal shape and normal respiratory effort Lungs: clear to auscultation and percussion Cardiac Exam: - regular rate & rhythm, no murmurs gallops or rubs - normal S1, normal S2 Pulses: 2(+) throughout Abdomen: Obese, abdomen soft, non-tender, no abnormal masses and no hepatosplenomegaly Musculoskeletal: no gait disturbance, no joint inflammation, no deforming art hritis Extremities: no edema and no cyanosis Neuro: grossly normal exam Results & Data Vital Signs (Past 12 Hours) Vital Signs Temp Pulse Resp BP Pulse Ox 05/10/19 11:00 36.7 C 84 18 151/77 H 92 05/10/19 07:27 36.6 C 93 H 18 124/68 92 05/10/19 03:40 36.9 C 93 H 22 113/62 93 Laboratory Results Laboratory Results - last 24 hr 05/09/19 05/09/19 05/09/19 16:02 17:42 19:46 WBC RBC Hgb Hct MCV MCH MCHC RDW Std Deviation RDW Coeff of Adolfo Plt Count MPV Immature Gran % (Auto) Neut % (Auto) Lymph % (Auto) Pettis % (Auto) Eos % (Auto) Baso % (Auto) Immature Gran # (Auto) Neut # (Auto) Lymph # (Auto) Pettis # (Auto) Eos # (Auto) Baso # (Auto) Sodium Potassium Chloride Carbon Dioxide Anion Gap BUN Creatinine Est Cr Clr Drug Dosing Est GFR ( Amer) Est GFR (Non-Af Amer) BUN/Creatinine Ratio Glucose POC Glucose 261 H 230 H Estimat Average Glucose Hemoglobin A1c Calcium Magnesium Troponin I < 0.015 05/09/19 05/10/19 05/10/19 23:15 02:01 05:27 WBC 9.37 RBC 4.19 L Hgb 12.6 Hct 38.9 MCV 92.8 MCH 30.1 MCHC 32.4 RDW Std Deviation 52.5 H RDW Coeff of Adolfo 15.6 H Plt Count 265 MPV 9.3 Immature Gran % (Auto) 0.6 Neut % (Auto) 65.9 Lymph % (Auto) 23.2 Pettis % (Auto) 5.5 Eos % (Auto) 4.5 Baso % (Auto) 0.3 Immature Gran # (Auto) 0.06 H Neut # (Auto) 6.17 Lymph # (Auto) 2.17 Pettis # (Auto) 0.52 Eos # (Auto) 0.42 Baso # (Auto) 0.03 Sodium Potassium Chloride Carbon Dioxide Anion Gap BUN Creatinine Est Cr Clr Drug Dosing Est GFR ( Amer) Est GFR (Non-Af Amer) BUN/Creatinine Ratio Glucose POC Glucose 161 H 148 H Estimat Average Glucose Hemoglobin A1c Calcium Magnesium Troponin I 05/10/19 05/10/19 05/10/19 05:27 05:27 07:16 WBC RBC Hgb Hct MCV MCH MCHC RDW Std Deviation RDW Coeff of Adolfo Plt Count MPV Immature Gran % (Auto) Neut % (Auto) Lymph % (Auto) Pettis % (Auto) Eos % (Auto) Baso % (Auto) Immature Gran # (Auto) Neut # (Auto) Lymph # (Auto) Pettis # (Auto) Eos # (Auto) Baso # (Auto) Sodium 138 Potassium 3.6 Chloride 99 Carbon Dioxide 31 Anion Gap 8.0 BUN 28 H Creatinine 1.66 H D Est Cr Clr Drug Dosing 50.6 Est GFR ( Amer) 37.4 Est GFR (Non-Af Amer) 32.2 BUN/Creatinine Ratio 16.6 Glucose 181 H POC Glucose 208 H Estimat Average Glucose 258 Hemoglobin A1c 10.6 H Calcium 8.4 L Magnesium 1.8 Troponin I 05/10/19 11:22 WBC RBC Hgb Hct MCV MCH MCHC RDW Std Deviation RDW Coeff of Adolfo Plt Count MPV Immature Gran % (Auto) Neut % (Auto) Lymph % (Auto) Pettis % (Auto) Eos % (Auto) Baso % (Auto) Immature Gran # (Auto) Neut # (Auto) Lymph # (Auto) Pettis # (Auto) Eos # (Auto) Baso # (Auto) Sodium Potassium Chloride Carbon Dioxide Anion Gap BUN Creatinine Est Cr Clr Drug Dosing Est GFR ( Amer) Est GFR (Non-Af Amer) BUN/Creatinine Ratio Glucose POC Glucose 195 H Estimat Average Glucose Hemoglobin A1c Calcium Magnesium Troponin I Diagnostic Findings EKG reveals a sinus rhythm without acute changes. Medications Administered Current Inpatient Medications Acetaminophen (Tylenol) 650 mg PO Q4H PRN PRN Reason: Pain or Fever Stop: 06/08/19 04:55 Last Admin: 05/10/19 08:04 Dose: 650 mg Documented by: Clonazepam (Klonopin) 0.5 mg PO BID [facility] Stop: 06/08/19 08:59 Last Admin: 05/10/19 08:05 Dose: 0.5 mg Documented by: Cyclobenzaprine HCl (Flexeril) 10 mg PO HS PRN PRN Reason: Muscle Spasm Stop: 06/08/19 04:55 Last Admin: 05/09/19 19:43 Dose: 10 mg Documented by: Duloxetine HCl (Cymbalta) 60 mg PO DAILY [facility] Stop: 06/08/19 08:59 Last Admin: 05/10/19 08:00 Dose: 60 mg Documented by: Furosemide (Lasix) 40 mg PO QAM [facility] Stop: 06/10/19 08:59 Gabapentin (Neurontin) 300 mg PO TID [facility] Stop: 06/08/19 08:59 Last Admin: 05/10/19 08:00 Dose: 300 mg Documented by: Insulin Aspart (Novolog Flexpen) 0 units SC ACHS [facility]; Protocol Stop: 06/08/19 11:29 Last Admin: 05/10/19 11:54 Dose: 22 units Documented by: Insulin Human NPH (Novolin N Nph) 50 units SC Q12H [facility]; Protocol Stop: 06/09/19 07:59 Last Admin: 05/10/19 07:57 Dose: 50 units Documented by: Levothyroxine Sodium (Synthroid) 25 mcg PO DAILYBB [facility] Stop: 06/08/19 06:29 Last Admin: 05/10/19 05:31 Dose: 25 mcg Documented by: Levothyroxine Sodium (Synthroid) 200 mcg PO DAILYBB [facility] Stop: 06/08/19 06:29 Last Admin: 05/10/19 05:31 Dose: 200 mcg Documented by: Magnesium Chloride (Slow-Mag) 64 mg PO BID [facility] Stop: 06/08/19 08:59 Last Admin: 05/10/19 08:00 Dose: 64 mg Documented by: Metoprolol Tartrate (Lopressor) 12.5 mg PO BID [facility] Stop: 06/08/19 08:59 Last Admin: 05/10/19 07:59 Dose: 12.5 mg Documented by: Miscellaneous Information (Consult Glycemic Management Pharmacy) 1 ea N/A UD PRN PRN Reason: Consult Stop: 06/08/19 05:07 Nitroglycerin (Nitrostat) 0.4 mg [facility] PRN PRN Reason: Chest Pain Stop: 06/08/19 04:55 Nortriptyline HCl (Pamelor) 50 mg PO [facility] Stop: 06/08/19 20:59 Last Admin: 05/09/19 20:07 Dose: 50 mg Documented by: Ondansetron HCl (Zofran) 4 mg IV Q6H PRN PRN Reason: Nausea Stop: 06/08/19 04:55 Pantoprazole Sodium (Protonix) 40 mg PO [facility] Stop: 06/08/19 20:59 Last Admin: 05/09/19 20:08 Dose: 40 mg Documented by: Polyethylene Glycol (Miralax Powder Packet) 17 gm PO DAILY PRN PRN Reason: Constipation Stop: 06/08/19 04:55 Ropinirole HCl (Requip) 2 mg PO [facility] Stop: 06/08/19 20:59 Last Admin: 05/09/19 20:08 Dose: 2 mg Documented by: Spironolactone (Aldactone) 25 mg PO QAM [facility] Stop: 06/10/19 08:59 Tramadol HCl (Ultram) 50 mg PO Q8H PRN PRN Reason: Pain Stop: 06/08/19 14:04 Last Admin: 05/10/19 02:06 Dose: 50 mg Documented by: Trazodone HCl (Desyrel) 50 mg PO DAILY [facility] Stop: 06/08/19 08:59 Last Admin: 05/10/19 08:00 Dose: 50 mg Documented by:
[2019-05-10] MEDS ORDERED: SPIRONOLACTONE 25 MG TAB PO ONE (12:14)
[2019-05-10] MEDS ORDERED: FUROSEMIDE 40 MG TAB PO ONE (12:15)
--- NOTE | 2019-05-10 12:32 | Hospitalist Progress Note ---
Date of Service May 10, 2019 Assessment & Plan (1) Generalized body aches: Present on admission with generalized body ache and cramps Hx of fibromyalgia CPK WNL Continue Gabapentin/flexeril/palmelor On lidocaine patch Pain improves (2) Acute kidney injury: (3) CKD (chronic kidney disease), stage III: Mostly related to diuretic Creatinine on admission 2.3 Creatinine baseline seems to be in the 1.7 Creatinine 1.6 today Starting on Lasix 40mg daily and spironolactone Monitor BMP (4) Chest pain: Atypical in presentation Mostly related to muscle Troponin x2 sets negative EKG showed no ischemic changes Stable (4) Fibromyalgia: Chronic pain continue duloxetine and gabapentin Continue tramadol PRN (5) RLS (restless legs syndrome): Continue ropinirole HS (6) ELISSA on CPAP: Continue Cpap (7) Depression with anxiety: She has been on Clonazepam for years On clonazepam and duloxetine Consider to taper off clonazepam and add maintenance med to control anxiety and depression Will defer to PCP (8) Hypothyroidism: Continue levothyroxine (9) CHF (congestive heart failure): Lasix and spironolactone were on hold due to worsening renal function No sign of fluid overload Cardiology on board Recommended to restart lasix at 40mg daily and spironolactone daily Will check BMP DVT px on SCDs Allergic with heparin (HIT) CODE status Full cod Subjective Pt was seen and examined Lying in bed with no distress Pt said that she feels a little better She said that her pain improves Denies any chest pain, palpitation,dizziness Physical Exam Physical Exam: General- No acute distress Head- atraumatic Eyes- PERRL, EOMI, ENT- oropharynx clear Neck- supple, no JVD Lungs- clear to auscultation Heart- regular rhythm; no murmur Abdomen- normal bowel sounds, soft, +tender with palpation, +obese Extremities- no calf tenderness Neuro- alert, oriented x 3; PERRL, EOMI; no facial palsy; no dysarthria Skin- warm & dry Results & Data Vital Signs (Past 12 Hours) Vital Signs Temp Pulse Resp BP Pulse Ox 05/10/19 11:00 36.7 C 84 18 151/77 H 92 05/10/19 07:27 36.6 C 93 H 18 124/68 92 05/10/19 03:40 36.9 C 93 H 22 113/62 93
[2019-05-10] MEDS ORDERED: TRIAMCINOLONE ACET 0.025% CR 15 GM TUBE EXT SCH (16:35)
[2019-05-11] MEDS ORDERED: SPIRONOLACTONE 25 MG TAB PO SCH (09:00)
[2019-05-11] MEDS ORDERED: FUROSEMIDE 40 MG TAB PO SCH (09:00)
--- NOTE | 2019-05-14 12:14 | Discharge Summary ---
Date of Service May 10, 2019 Admission HPI Per Admitting Provider CHIEF COMPLAINT: Body cramps, not feeling well. HISTORY OF PRESENT ILLNESS: This is a 64-year-old female with past medical history significant for type 2 diabetes, hyperlipidemia, hypothyroidism, obstructive sleep apnea, on CPAP, history of nocturnal hypoxia, chronic respiratory failure requiring 2 liters oxygen all the time, chronic diastolic CHF, history of pulmonary embolism status post Carver filter, renal insufficiency, hypertension, morbid obesity, GERD, fibromyalgia, restless leg syndrome, generalized anxiety disorder, depression, statin intolerance, who lives alone, ambulates with a cane, presents with not feeling well, with generalized body aches, feeling weak and cramps, went to PCP yesterday. Labs showed a creatinine of 2.19. High sensitivity troponin was 28, so she was called for admission. The patient currently says she has cramps all over the body. She might have had some chest discomfort more like a gas bloating. Denies any headache, no blurred vision, no earache, no runny nose, no sore throat, no cough, no fever, no chills, no nausea. She has some bloating feeling in the lower abdomen. No diarrhea, no constipation, no blood in stool or black stools. She says PCP told her to drink a lot of water. She is drinking lot of water, but she did not make much urine today. No burning micturition, no hematuria. Admission Exam Per Admitting Provider GENERAL: The patient is morbidly obese, not in acute distress. VITAL SIGNS: Temperature 36.8, pulse 103, respiratory rate 22, blood pressure 111/53, oxygen 92% on 3 liters. HEENT: No pallor, no icterus. Pupils equal, round, reactive to light. NECK: No JVD, no neck masses, no carotid bruits. CARDIOVASCULAR: S1, S2 heard. Tachycardia. No murmurs. RESPIRATORY SYSTEM: Normal AP diameter. No accessory muscle use. No wheezing, bibasilar crackles. ABDOMEN: Soft, bowel sounds present, nontender. No distention. CENTRAL NERVOUS SYSTEM: Cranial nerves II-XII grossly intact, nonfocal. EXTREMITIES: No edema, no erythema. Principal Diagnosis Generalized body aches Chest pain Acute kidney injury CKD (chronic kidney disease), stage III Fibromyalgia RLS (restless legs syndrome) Obstructive sleep apnea Discharge Exam General- No acute distress Head- atraumatic Eyes- PERRL, EOMI, ENT- oropharynx clear Neck- supple, no JVD Lungs- clear to auscultation Heart- regular rhythm; no murmur Abdomen- normal bowel sounds, soft, +tender with palpation, +obese Extremities- no calf tenderness Neuro- alert, oriented x 3; PERRL, EOMI; no facial palsy; no dysarthria Skin- warm & dry Discharge Data Allergies Allergy/AdvReac Type Severity Reaction Status Date / Time tetanus toxoid, adsorbed Allergy Mild PASSED OUT Verified 05/09/19 03:40 AND GOT SICK WHEN A CHILD codeine Allergy Unknown Hallucinati Verified 05/09/19 03:40 ons heparin Allergy Unknown HIT; FLUID Verified 05/09/19 03:40 IN LUNGS morphine Allergy Unknown VIOLENT Verified 05/09/19 03:40 REACTION-"ALMOST " SWELLING Consultations 05/09/19 03:10 ED Decision to Admit Stat 05/09/19 04:56 Consult Case Management - Discharge Planning Routine 05/10/19 10:20 Consult Cardiology Routine Hospital Course (1) Generalized body aches: Present on admission with generalized body ache and cramps Hx of fibromyalgia CPK WNL Continue Gabapentin/flexeril/palmelor On lidocaine patch Pain improves (2) Acute kidney injury: (3) CKD (chronic kidney disease), stage III: Mostly related to diuretic Creatinine on admission 2.3 Creatinine baseline seems to be in the 1.7 Creatinine 1.6 today Starting on Lasix 40mg daily and spironolactone Monitor BMP (4) Chest pain: Atypical in presentation Mostly related to muscle Troponin x2 sets negative EKG showed no ischemic changes Stable (4) Fibromyalgia: Chronic pain continue duloxetine and gabapentin Continue tramadol PRN (5) RLS (restless legs syndrome): Continue ropinirole HS (6) ELISSA on CPAP: Continue Cpap (7) Depression with anxiety: She has been on Clonazepam for years On clonazepam and duloxetine Consider to taper off clonazepam and add maintenance med to control anxiety and depression Will defer to PCP (8) Hypothyroidism: Continue levothyroxine (9) CHF (congestive heart failure): Lasix and spironolactone were on hold due to worsening renal function No sign of fluid overload Cardiology on board Recommended to restart lasix at 40mg daily and spironolactone daily Will check BMP DVT px on SCDs Allergic with heparin (HIT) CODE status Full cod Total Time Total Time Spent Total Time Spent (In Minutes): 35 minutes Total Time Includes: Examination of the Patient, Discharge Planning, Medication Reconciliation, Communication With Other Providers and Other Discharge Plan Discharge Items Patient Disposition: Home - Self-Care Reason For Visit: RETAINING FLUID, KIDNEYS NOT WORKING WELL Discharge Diagnosis: Generalized body aches Chest pain Acute kidney injury CKD (chronic kidney disease), stage III Fibromyalgia RLS (restless legs syndrome) Obstructive sleep apnea Discharge Goals: Decrease discomfort, Improve disease control, Improve function and Increase independence Activity: Resume your previous activity Activity Comment: As tolerated Non-emergency contact: Primary Care Provider Call non-emergency contact if: you have any medication questions Follow-up/Referrals: Kevin Whiteside DO [Primary Care Provider] - Diet: Carb Consistent or DM2 and Heart Healthy Addtl Provider Instructions: Follow up with your primary care provider Dr. Whiteside on 05/15 @ 10:55 AM Follow up with nephrology Dr. White on 05/21 @ 11:40 AM Check BMP in 1 week to monitor electrolytes and kidney function Continue oxygen supplement Follow up a low salt diet and limited concentrated sweet intake Limited your fluid intake Monitor your blood sugar Do not drive or perform any machine after taking tramadol or xanax Hold next dose of tramadol or xanax if you become lethargy and drowsy Do not take xanax and tramadol together due to risk of lethargy and drowsiness Ok to give her the tramcinolone topical to apply twice a day . CHF Discharge Instructions Spironolactone changed to 25mg daily Lasix changed to 40mg daily Call your Primary Care doctor if any of the following symptoms or problems start or get worse: Shortness of breath or difficulty breathing Wake up at night short of breath Chest pain Cough Swelling of your hands, feet, or legs More fatigued or tired with your normal activity Palpitations - sudden fast heart beats WEIGHT Weigh yourself every morning after using the bathroom. Use the same scale. Wear the same amount of clothing. Write your weight down on a chart. Call your Primary Care doctor if you gain more than 2-3 pounds in 1-2 days. Check your weight daily. If weight increases by more than 2lbs over 24hrs, ok to take an additional tablet of lasix MEDICATIONS Use this discharge instruction sheet for medication instructions. Take your medications at the time your doctor ordered. Do not skip a dose of your medicines. If you miss a dose of medicine, take it as soon as possible, but DO NOT DOUBLE A DOSE. Read your medicine information when you get home. Know all of the side effects of your medicine. If in doubt, ask your pharmacist Call your Primary Care doctor's office if you have any side effects. Be sure all of your doctors know what medicine and herbs you take (including cold, flu, and herbal medicine). Take the following with you to your follow-up doctor appointments: Weight Chart Medication List List of questions Do not drink excessive alcohol, beer or wine. Prescriptions: New furosemide 40 mg Tablet 40 mg PO QAM 30 Days Qty: 30 RF: 0 tramadol 50 mg Tablet 50 mg PO Q12H PRN (Reason: severe pain ) Qty: 10 RF: 0 Continued clonazepam 0.5 mg Tablet 0.5 mg PO BID RF: 0 levothyroxine 25 mcg Tablet 25 mcg PO DAILY RF: 0 levothyroxine 200 mcg Tablet 200 mcg PO DAILY RF: 0 metoprolol tartrate 25 mg Tablet 12.5 mg PO BID RF: 0 nortriptyline [Pamelor] 50 mg Capsule 50 mg PO HS RF: 0 omeprazole 20 mg Capsule,Delayed Release(Dr/Ec) 20 mg PO HS RF: 0 liraglutide 3 mg/0.5 mL (18 mg/3 mL) Pen Injector 1.8 mg SUBCUT WK RF: 0 trazodone 50 mg tablet 50 mg PO DAILY RF: 0 gabapentin 300 mg Capsule 300 mg PO TID RF: 0 magnesium chloride 64 mg Tablet,Delayed Release (Dr/Ec) 64 mg PO BID RF: 0 Novolog U-100 Insulin aspart 100 unit/mL Solution 1 sliding scale dose continuous subcutaneous infusion USEASDIRECTD RF: 0 cyclobenzaprine 10 mg Tablet 10 mg PO HS PRN (Reason: Muscle Spasm) RF: 0 ergocalciferol (vitamin D2) [Vitamin D2] 50,000 unit Capsule 50,000 unit PO WK RF: 0 duloxetine 60 mg capsule,delayed release(DR/EC) 60 mg PO DAILY RF: 0 ropinirole [Requip] 4 mg Tablet 2 mg PO HS Qty: 0 RF: 0 Changed spironolactone 25 mg Tablet 25 mg PO DAILY Qty: 30 RF: 0 Discontinued furosemide [Lasix] 40 mg Tablet 60 mg PO DAILY RF: 0 Stand-Alone Forms: [facility] Discharge Orders: Discharge Order (Routine); Ordered 05/10/19 Ordered By: Vidal De Leon Admission Data Admit Date/Time: 05/09/19 03:53 Attending Provider: Vidal De Leon Admit Provider: Abhilash Montes Primary Care Provider: Kevin Whiteside Other Providers: Abhilash Montes ; Zack Gonzales Service: Telemetry Other Interventions: Discharge Summary Assessment (RN) Last Done: 05/10/19 17:15 DC Date/Time DO NOT enter until pt leaves facility: 05/10/19 17:49
== END 2019-05-10 17:49 | disposition home or self-care (01) ==
LOC: ED 00:05 → 2S 00:05

== ENCOUNTER 2020-07-18 23:50 | Inpatient (IN) ==
[2020-07-19 00:40] LABS: Basophils # (auto) 0.02 K/uL (0-0.2); Basophils % (auto) 0.1 %; Eosinophils # (auto) 0.43 K/uL (0-0.5); Eosinophils % (auto) 2.7 %; Hematocrit (blood only) 41.1 % (37-47); Hemoglobin 13.3 g/dL (12.0-16.0); Immature Granulocytes # (auto) 0.11 K/uL (0.00-0.02); Immature Granulocytes % (auto) 0.7 %; Lymphocytes % (auto) 17.6 %; Mean Corpuscular Hemoglobin 30.8 pg (25-34); Mean Corpuscular Hgb Conc 32.4 g/dL (32-36); Mean Corpuscular Volume 95.1 fL (80-100); Mean Platelet Volume 10.2 fL (7.4-10.4); Monocytes % (auto) 4.4 %; Neutrophils # (auto) 11.87 K/uL (1.4-6.5); Neutrophils % (auto) 74.5 %; Platelet Count 242 K/uL (130-400); RDW Coefficient of Variation 15.3 % (11.5-14.5); RDW Standard Deviation 53.2 fL (36.4-46.3); Red Blood Count 4.32 M/uL (4.2-5.4); White Blood Count 15.93 K/uL (4.8-10.8)
[2020-07-19 00:43] LABS: Base Excess VBG 1.2 mEq/L; Oxygen Saturation VBG 91.4 %; pH VBG 7.35 (7.36-7.41)
[2020-07-19 00:47] LABS: Alanine Aminotransferase 23 U/L (12-78); Albumin Level 3.1 gm/dl (3.4-5.0); Aspartate Aminotransferase 13 U/L (15-37); Blood Urea Nitrogen 36 mg/dl (7-18); Calcium 8.4 mg/dl (8.5-10.1); Carbon Dioxide 29 mmol/L (21-32); Chloride 102 mmol/L (98-107); Est GFR (African American) 28.1; Est GFR (Non-African American) 24.2; Glucose 137 mg/dl (70-99); Magnesium 1.5 mg/dl (1.8-2.4); Potassium 3.2 mmol/L (3.5-5.1); Sodium 136 mmol/L (136-145)
[2020-07-19 00:53] LABS: INR 1.1 (0.9-1.1); Partial Thromboplastin Ratio 0.9; Partial Thromboplastin Time 26.4 Seconds (21.0-31.0); Prothrombin Time 11.3 Seconds (9.0-12.0)
[2020-07-19 00:58] LABS: Albumin Globulin Ratio 0.7 (0.9-2); Alkaline Phosphatase 88 U/L (45-117); Bilirubin,Total 0.5 mg/dl (0.2-1); Globulin 4.5 gm/dl (2.5-4.0); NT Pro B Type Natriuretic Pept 130 pg/ml (0-900); Total Protein 7.6 gm/dl (6.4-8.2); Troponin I < 0.015 ng/ml (0-0.045)
--- NOTE | 2020-07-19 01:04 | CT Scan Report ---
CT head/brain wo con CLINICAL HISTORY: 65 years-old Female with dizzy. Acute dizziness with weakness and hypoxia TECHNIQUE: Multiple axial CT images of the head were obtained without contrast. A dose lowering tech nique was utilized adhering to the principles of ALARA. COMPARISON: None. FINDINGS: No acute intracranial hemorrhage, midline shift, intracranial mass, hydrocephalus, territorial ischem ia or abnormal extra-axial collection. Extensive white matter hypodensities. Cerebral vascular calcif ications. The calvarium is intact. The paranasal sinuses, mastoid air cells, and middle ear cavities are clear . IMPRESSION: 1. No acute intracranial abnormality. 2. Extensive white matter hypodensities statistically favor chronic microvascular ischemic disease. ACT 112: Negative or not required by law. The above report was generated using voice recognition software. It may contain grammatical, syntax o r spelling errors. Electronically signed by: Ernesto Gilliland M.D. 07/19/2020 1:03 AM
[2020-07-19 01:43] LABS: Lyme Ab IgG w/WB Rflx Negative (Negative)
[2020-07-19 01:45] LABS: Lyme Ab IgM w/WB Rflx Equivocal (Negative)
[2020-07-19] MEDS ORDERED: cefTRIAXone SODIUM 2,000 MG/70 ML BAG IV STA (02:29)
[2020-07-19] MEDS ORDERED: DOXYCYCLINE HYCLATE 100 MG in DEXTROSE 5% 100 ML IV STA (02:29)
[2020-07-19 02:30] LABS: Appearance Urine Cloudy (Clear); Bacteria Urine Automated 4+ (Negative); Bilirubin Urine Negative (Negative); Blood Urine Negative (Negative); Color Urine Yellow; Glucose Urine UA Negative (Negative); Ketones Urine Negative (Negative); Leukocyte Esterase Urine 3+ (Negative); Nitrite Urine Negative (Negative); Protein Urine Negative (Negative); RBC Urine Automated 0-4 /hpf (0-4); Specific Gravity Urine 1.014 (1.000-1.030); Urobilinogen Urine Negative (Negative); WBC Urine Automated >30 /hpf (0-5)
[2020-07-19] MEDS ORDERED: methylPREDNISolone 20 MG in SYRINGE 0 ML IV STA (03:05)
[2020-07-19] MEDS ORDERED: POTASSIUM CHLORIDE 20 MEQ TABCR PO STA (03:06)
[2020-07-19] MEDS ORDERED: NORMOSOL-R 500 ML IV STA (03:07)
[2020-07-19] MEDS ORDERED: ALBUT/IPRATROP 3MG/0.5MG NEB 3 ML VIAL NEB STA (03:57)
[2020-07-19 04:00] LABS: Influenza A virus by PCR Negative (Negative); Influenza B virus by PCR Negative (Negative)
--- NOTE | 2020-07-19 04:23 | History & Physical Report ---
Date of Service July 19, 2020 Assessment & Plan (1) Dizziness: Multifactorial : Possible sepsis (hypoxemic respiratory failure secondary to atypical pneumonia; complicated UTI) low BP, ARF on CRI secondary to illness New Vicodin prescription for right sacroiliitis possibly contributory (potential interaction with patient's multiple neuropsychotropic medications for patient's anxiety/mood disorder, fibromyalgia and history of restless leg syndrome) Abdominal pain secondary to UTI Rule out structural pathology chronic diastolic heart failure (60 to 65%, TTE 2019), patient on the dry side DM2 insulin requiring, reasonable control as of recent outpatient hemoglobin A1c of 7.28 December 2019 history PE DVT status post IVC filter placement secondary to heparin-induced thrombocytopenia Hypokalemia, hypomagnesemia secondary to illness, home diuretic Rx Medical telemetry Cultures, check lactic acid Doxycycline for atypical pneumonia; supplemental O2, nebs, Solu-Medrol 1 dose for hypoxemia secondary to respiratory infection Cefepime for complicated UTI CT abdomen pelvis RE abdominal pain IVF, hold home diuretics for now until patient euvolemic Hold Vicodin for now and add medication to ADR list, Lidoderm patch trial for right sacroiliitis Consider Orthopedics consult if pain still uncontrolled for possible joint injection. Replace electrolytes Basal insulin adjusted for clear liquid diet for now, ISS BG goal [id number], carb count coverage, update hemoglobin A1c DVT prophylaxis. SCDs RE hx HIT; Arixtra precluded by current kidney function Full code Text document was generated using [email or web address] voice recognition software. It may contain grammatical or spelling errors. Kindly contact undersigned for clarification of any documentation item in question. History of Present Illness Chief Complaint: Dizziness, shortness of breath Primary Care Provider: Kevin Whiteside DO History obtained from patient and records. Medical history significant for chronic diastolic heart failure (60 to 65%, TTE 2018), hypertension, hyperlipidemia, DM2 insulin requiring, CRI (baseline creatinine 1.9), history PE DVT status post IVC filter placement secondary to heparin-induced thrombocytopenia, ELISSA on CPAP, past tobacco abuse, fibromyalgia, restless leg syndrome. Last confinement April 2019 for generalized body aches, ARF. Patient seen at [facility] 3 days ago for right sacroiliitis. Patient started on new Vicodin prescription as needed for pain. Since starting Vicodin prescription, patient noted sleepiness. fair appetite, achy right abdominal pain without change in bowel habits. No actual dysuria symptoms. Dry cough symptoms noted about 2 days ago which patient attributed to allergies Patient was watching television last night when she started feeling dizzy and short of breath. No chest pain. No known recent COVID-19 contacts. At the ER, patient received Ceftriaxone and Doxycycline for possible pneumonia CT chest. O2 sats upon arrival at the ER 80s on room air. SBP at the ER at one point noted to be in the 90s. 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 Allergies Allergy/AdvReac Type Severity Reaction Status Date / Time morphine Allergy Severe VIOLENT Verified 07/19/20 02:43 REACTION-"ALMOST " SWELLING tetanus toxoid, adsorbed Allergy Intermediate PASSED OUT Verified 07/19/20 02:43 AND GOT SICK WHEN A CHILD acetaminophen [From Vicodin] AdvReac Intermediate sleepiness Verified 07/19/20 04:03 codeine AdvReac Intermediate Hallucinati Verified 07/19/20 02:43 ons empagliflozin AdvReac Intermediate YEAST Verified 07/19/20 02:43 [From Jardiance] INFECTIONS heparin AdvReac Intermediate HIT; FLUID Verified 07/19/20 02:43 IN LUNGS hydrocodone [From Vicodin] AdvReac Intermediate sleepiness Verified 07/19/20 04:03 Home Medications Home Medications Medication Instructions Recorded Confirmed Type clonazepam 0.5 mg PO BID 06/09/18 07/19/20 History levothyroxine 25 mcg PO QAM 06/09/18 07/19/20 History levothyroxine 200 mcg PO QAM 06/09/18 07/19/20 History metoprolol tartrate 12.5 mg PO BID 06/09/18 07/19/20 History omeprazole 20 mg PO HS 06/09/18 07/19/20 History cyclobenzaprine 10 mg PO HS PRN 12/08/18 07/19/20 History duloxetine 60 mg PO QAM 12/23/18 07/19/20 History gabapentin 300 mg PO TID 05/09/19 07/19/20 History acetaminophen [Tylenol Extra 1,000 mg PO Q6H PRN 11/30/19 07/19/20 History Strength] dulaglutide [Trulicity] 1.5 mg SUBCUT WK 11/30/19 07/19/20 History colchicine 0.3 mg PO DAILY PRN 01/25/20 07/19/20 History duloxetine 30 mg PO DAILY 01/25/20 07/19/20 History furosemide [Lasix] 60 mg PO DAILY 01/25/20 07/19/20 History insulin aspart U-100 [Novolog 0 unit SUBCUT ACHS 01/25/20 07/19/20 History U-100 Insulin aspart] magnesium oxide 400 mg PO DAILY 01/25/20 07/19/20 History nortriptyline [Pamelor] 50 mg PO HS 01/25/20 07/19/20 History ropinirole [Requip XL] 2 mg PO HS PRN 01/25/20 07/19/20 History trazodone 50 mg PO HS 01/25/20 07/19/20 History potassium chloride 10 meq PO Q OTHER DAY 03/10/20 07/19/20 History dicyclomine 20 mg PO TID PRN #20 tab 03/13/20 07/19/20 Rx bupropion HCl 150 mg PO DAILY 07/19/20 07/19/20 History hydrocodone-acetaminophen 1 tab PO DIRECTED PRN 07/19/20 07/19/20 History tramadol 50 mg PO DIRECTED PRN 07/19/20 07/19/20 History Past Med/Surg History Medical History (Updated 07/19/20 @ 06:09 by Moncho Laurent MD) CKD (chronic kidney disease), stage III Depression with anxiety Diabetes Fibromyalgia GERD (gastroesophageal reflux disease) History of DVT (deep vein thrombosis) History of pulmonary embolism s/p zoraida filter HIT (heparin-induced thrombocytopenia) HLD (hyperlipidemia) HTN (hypertension) Hypothyroidism Morbid obesity ELISSA on CPAP Presence of IVC filter RLS (restless legs syndrome) Sepsis Surgical History History of cholecystectomy History of colon resection secondary to R colon perforation, resected treated with colostomy and eventual reversal in 2008, Dr. Lerma History of thyroidectomy, total History of total right knee replacement History of tracheostomy 2010, secondary to acute resp failure secondary to pneumonia, [place] [facility] [place] History Father , age 74 Lung cancer Mother , age 45 Cirrhosis Social History Smoking Status: Never smoker Cigarettes Per Day: 15 pack year hx; Second Hand Exposure: No; Hx Alcohol Use: No Hx Substance Use: No Preferred Language: Romansh Communication Ability: Effective Comic Illustrator Required: No Beliefs That Will Affect Care: None marital status: Single Current Living Situation: Alone How many Children do You have: 0 Feels Safe at Home: Yes Assistive Devices: None Review of Systems Review of Systems: As per HPI, all 10 systems reviewed, all other ROS negative Physical Exam Physical Exam: GENERAL: Comfortable, episodic lethargy, morbidly obese, no respiratory distress SKIN: Normal color, warm HEENT: Mullins palpebral conjunctivae, no ptosis, dry buccal mucosa, nasal cannula in place NECK : Supple, short neck, no tenderness CHEST : Decreased breath sounds , no tenderness HEART : RRR, no obvious murmurs ABDOMEN: Some distention, minimal right lower quadrant tenderness EXTREMITIES : Minimal LE swelling, no LE tenderness, no other conspicuous deformities noted NEUROLOGIC : Coherent, episodic lethargy, no facial asymmetry, no other gross focality Results & Data Results & Data ([facility]) Vital Signs (Past 12 Hours) Vital Signs Temp Pulse Resp BP Pulse Ox 07/19/20 03:00 80 20 111/57 L 94 07/19/20 02:32 81 22 96 07/19/20 01:32 81 19 123/53 L 93 07/19/20 01:05 82 21 91/54 L 92 07/19/20 00:16 84 L 07/19/20 00:11 36.8 C 84 20 94/56 L 84 L Laboratory Results Laboratory Results WBC 15.93 K/uL (4.8-10.8) H 07/19/20 00:05 RBC 4.32 M/uL (4.2-5.4) 07/19/20 00:05 Hgb 13.3 g/dL (12.0-16.0) 07/19/20 00:05 Hct 41.1 % (37-47) 07/19/20 00:05 MCV 95.1 fL (80-100) 07/19/20 00:05 MCH 30.8 pg (25-34) 07/19/20 00:05 MCHC 32.4 g/dL (32-36) 07/19/20 00:05 RDW Std Deviation 53.2 fL (36.4-46.3) H 07/19/20 00:05 RDW Coeff of Adolfo 15.3 % (11.5-14.5) H 07/19/20 00:05 Plt Count 242 K/uL (130-400) 07/19/20 00:05 MPV 10.2 fL (7.4-10.4) 07/19/20 00:05 Immature Gran % (Auto) 0.7 % 07/19/20 00:05 Neut % (Auto) 74.5 % 07/19/20 00:05 Lymph % (Auto) 17.6 % 07/19/20 00:05 [place] % (Auto) 4.4 % 07/19/20 00:05 Eos % (Auto) 2.7 % 07/19/20 00:05 Baso % (Auto) 0.1 % 07/19/20 00:05 Neut # (Auto) 11.87 K/uL (1.4-6.5) H 07/19/20 00:05 Lymph # (Auto) 2.80 K/uL (1.2-3.4) 07/19/20 00:05 [place] # (Auto) 0.70 K/uL (0.11-0.59) H 07/19/20 00:05 Eos # (Auto) 0.43 K/uL (0-0.5) 07/19/20 00:05 Baso # (Auto) 0.02 K/uL (0-0.2) 07/19/20 00:05 Immature Gran # (Auto) 0.11 K/uL (0.00-0.02) H 07/19/20 00:05 PT 11.3 Seconds (9.0-12.0) 07/19/20 00:05 INR 1.1 (0.9-1.1) 07/19/20 00:05 APTT 26.4 Seconds (21.0-31.0) 07/19/20 00:05 PTT Ratio 0.9 07/19/20 00:05 VBG pH 7.35 (7.36-7.41) L 07/19/20:24 VBG pCO2 52 mmHg (38-50) H 07/19/20:24 VBG pO2 65 mmHg 07/19/20:24 VBG HCO3 28 mmol/L 07/19/20:24 VBG O2 Saturation 91.4 % 07/19/20:24 VBG Base Excess 1.2 mEq/L 07/19/20:24 Barometric Pressure 733.1 mm/Hg 07/19/20:24 Sodium 136 mmol/L (136-145) 07/19/20 00:05 Potassium 3.2 mmol/L (3.5-5.1) L 07/19/20 00:05 Chloride 102 mmol/L (98-107) 07/19/20 00:05 Carbon Dioxide 29 mmol/L (21-32) 07/19/20 00:05 Anion Gap 5.0 (3-11) 07/19/20 00:05 BUN 36 mg/dl (7-18) H 07/19/20 00:05 Creatinine 2.09 mg/dl (0.6-1.2) H 07/19/20 00:05 Est Cr Clr Drug Dosing 41.0 ml/min 07/19/20 00:05 Est GFR ( Amer) 28.1 07/19/20 00:05 Est GFR (Non-Af Amer) 24.2 07/19/20 00:05 BUN/Creatinine Ratio 17.0 (-20) 07/19/20 00:05 Glucose 137 mg/dl (70-99) H 07/19/20 00:05 Calcium 8.4 mg/dl (8.5-10.1) L 07/19/20 00:05 Magnesium 1.5 mg/dl (1.8-2.4) L 07/19/20 00:05 Total Bilirubin 0.5 mg/dl (0.2-1) 07/19/20 00:05 AST 13 U/L (15-37) L 07/19/20 00:05 ALT 23 U/L (12-78) 07/19/20 00:05 Alkaline Phosphatase 88 U/L (45-117) 07/19/20 00:05 Troponin I < 0.015 ng/ml (0-0.045) 07/19/20 00:05 NT-Pro-B Natriuret Pep 130 pg/ml (0-900) 07/19/20 00:05 Total Protein 7.6 gm/dl (6.4-8.2) 07/19/20 00:05 Albumin 3.1 gm/dl (3.4-5.0) L 07/19/20 00:05 Globulin 4.5 gm/dl (2.5-4.0) H 07/19/20 00:05 Albumin/Globulin Ratio 0.7 (0.9-2) L 07/19/20 00:05 TSH 3.030 uIu/ml (0.300-4.500) 07/19/20 00:05 Urine Color Yellow 07/19/20 02:10 Urine Appearance Cloudy (Clear) A 07/19/20 02:10 Urine pH 5.0 (4.5-7.5) 07/19/20 02:10 Ur Specific Geary 1.014 (1.000-1.030) 07/19/20 02:10 Urine Protein Negative (Negative) 07/19/20 02:10 Urine Glucose (UA) Negative (Negative) 07/19/20 02:10 Urine Ketones Negative (Negative) 07/19/20 02:10 Urine Blood Negative (Negative) 07/19/20 02:10 Urine Nitrite Negative (Negative) 07/19/20 02:10 Urine Bilirubin Negative (Negative) 07/19/20 02:10 Urine Urobilinogen Negative (Negative) 07/19/20 02:10 Ur Leukocyte Esterase 3+ (Negative) H 07/19/20 02:10 Urine WBC (Auto) >30 /hpf (0-5) H 07/19/20 02:10 Urine RBC (Auto) 0-4 /hpf (0-4) 07/19/20 02:10 U Hyaline Cast (Auto) 1-5 /lpf (0-5) 07/19/20 02:10 U Epithel Cells (Auto) 10-20 /lpf (0-5) H 07/19/20 02:10 Urine Bacteria (Auto) 4+ (Negative) H 07/19/20 02:10 Lyme Disease IgG Ab Negative (Negative) 07/19/20 00:05 Lyme Disease IgM Ab Equivocal (Negative) A 07/19/20 00:05 COVID-19 Eval Order Covid19 Done at [facility] 07/19/20 01:04 COVID-19 PCR NEGATIVE (Negative) 07/19/20 01:04 Influ A Molecular Assay Negative (Negative) 07/19/20 01:15 Influ B Molecular Assay Negative (Negative) 07/19/20 01:[address] head: 1. No acute intracranial abnormality. 2. Extensive white matter hypodensities statistically favor chronic microvas cular ischemic disease. CT chest initial read: Patchy bilateral reticular and groundglass lung densities correlate with inflammatory/infectious process. No pneumothorax or pleural effusion. Small mediastinal lymph nodes. Mild fatty liver. Splenomegaly. EKG as per my interpretation : Rate 85, NSR, normal axis, no ischemia Code Status & VTE Plan VTE Prophylaxis Plan VTE Prophylaxis will be ordered: Yes
[2020-07-19 04:34] LABS: Base Excess ABG 1.4 mEq/L (-9-1.8); HCO3 ABG 27 mmol/L (19-24); Oxygen Saturation ABG 97.5 % (90-95); PCO2 ABG 49 mmHg (35-46); PO2 ABG 99 mmHg (80-95); pH ABG 7.37 (7.35-7.45)
[2020-07-19 04:46] LABS: Allen Test POS (Pos)
[2020-07-19] MEDS ORDERED: CEFEPIME CONSULT ACTIVE PRN (06:01)
[2020-07-19] MEDS ORDERED: INSULIN GLARGINE SOLOSTAR 100 UNITS/ML 3 ML PEN SC STA (06:01)
[2020-07-19] MEDS ORDERED: ACETAMINOPHEN 325 MG TAB PO PRN (06:01)
[2020-07-19] MEDS ORDERED: PROMETHAZINE HCL 12.5 MG in SODIUM CHLORIDE 0.9% 50 ML IV PRN (06:01)
[2020-07-19] MEDS ORDERED: CEFEPIME 2,000 MG in SYRINGE 0 ML IV ONE (06:30)
[2020-07-19] MEDS ORDERED: POTASSIUM CHLORIDE 40 MEQ in SODIUM CHLORIDE 0.9% 1000ML 1,000 ML IV ONE (06:30)
--- NOTE | 2020-07-19 07:17 | CT Scan Report ---
CT OF THE ABDOMEN AND PELVIS WITHOUT CONTRAST CLINICAL HISTORY: Right-sided abdominal pain. COMPARISON STUDY: CT of the abdomen and pelvis March 10, 2020. TECHNIQUE: Axial images of the abdomen and pelvis were obtained without IV contrast. Images were revi ewed in the axial, sagittal, and coronal planes. Automated exposure control was utilized for the kiesha dy. A dose lowering technique was utilized adhering to the principles of ALARA. FINDINGS: No pneumatosis, free air or portal venous gas is present. Evaluation of the abdomen and pel vis is suboptimal on this unenhanced examination. There is mild cardiomegaly. Mild splenomegaly is un changed. There is enlargement of the lateral segment of the liver. There is no biliary ductal dilatat ion status post cholecystectomy. Unenhanced images of the adrenal glands, left kidney and pancreas ar e normal. A right-sided extrarenal pelvis is unchanged. No ureteral calculi are present. IVC filter i s in place. Multiple bowel containing ventral hernias are noted. There is no evidence for a bowel obs truction. No definite bowel wall thickening is identified on this unenhanced examination. There are p ostoperative findings within the sigmoid colon. The appendix is normal. A few fluid-filled small wing l loops are noted. This is likely within normal limits. There is no ascites or lymphadenopathy. No bah spicious osseous lesions are present. Multilevel degenerative changes within the lumbar spine are pre sent. There is no peripancreatic infiltration. No abdominal or pelvic lymphadenopathy is present. A f ew ingested tablets are noted. IMPRESSION: 1. No acute process within the abdomen or pelvis on unenhanced exam. Normal appendix. No urinary calc bola. 2. Multiple bowel containing ventral hernias. No bowel obstruction. No definite bowel wall thickening . A few fluid-filled small bowel loops which are likely within normal limits. 3. Stable mild splenomegaly. ACT 112: Negative or not required by law. Electronically signed by: David Lugo M.D. 07/19/2020 7:15 AM
[2020-07-19] MEDS: IPRATROPIUM BROMIDE NEB SOLN 0.02% 2.5 ML VIAL INH SCH ×3 (07:29→19:55)
[2020-07-19] MEDS: LEVALBUTEROL 1.25MG/0.5ML NEB INH SCH ×3 (07:29→19:55)
[2020-07-19] MEDS: MAGNESIUM SULFATE / D5W 1 GM/100 ML BAG IV SCH ×2 (07:47→10:05)
[2020-07-19] MEDS: LIDOCAINE 5% 1 PATCH TD SCH (07:51)
[2020-07-19] MEDS: LEVOTHYROXINE SODIUM 200 MCG TABLET PO SCH (07:51)
[2020-07-19] MEDS: LEVOTHYROXINE SODIUM 25 MCG TABLET PO SCH (07:51)
[2020-07-19] MEDS: guaiFENesin 600 MG TABCR PO SCH ×2 (07:52→20:19)
[2020-07-19] MEDS: DULoxetine HCL 60 MG CAP PO SCH (07:52)
[2020-07-19] MEDS: DULoxetine HCL 30 MG CAP PO SCH (07:52)
[2020-07-19] MEDS: GABAPENTIN 300 MG CAP PO SCH ×3 (07:53→20:19)
[2020-07-19] MEDS: buPROPion XL 150 MG TABCR PO SCH (07:53)
[2020-07-19] MEDS: METOPROLOL TARTRATE 25 MG TAB PO SCH ×2 (07:53→20:21)
[2020-07-19] MEDS: clonazePAM 0.5 MG TAB PO SCH ×2 (08:03→20:21)
[2020-07-19] MEDS ORDERED: GLUCOSE 10 TABS/TUBE PO PRN (08:05)
[2020-07-19] MEDS ORDERED: GLUCAGON FOR INJ 1 MG VIAL SQ PRN (08:05)
[2020-07-19] MEDS ORDERED: GLUCOSE 40% GEL 15 GM TUBE PO PRN (08:05)
[2020-07-19] MEDS ORDERED: DEXTROSE 50% 50 ML SYRINGE IV PRN (08:05)
[2020-07-19] MEDS ORDERED: CARBOHYDRATES FOR HYPOGLYCEMIA PO PRN (08:05)
--- NOTE | 2020-07-19 08:31 | CT Scan Report ---
CT OF THE CHEST WITHOUT IV CONTRAST CLINICAL HISTORY: dizzy, low 02 saturation COMPARISON STUDY: Chest CT June 06, 2018. Chest radiograph November 30, 2019. CT DOSE: 1813.00 mGy.cm TECHNIQUE: Axial images of the chest were obtained without IV contrast. Images were reviewed in the axial, sagittal, and coronal planes. IV contrast was not administered for this examination. Automat ed exposure control was utilized for the study. A dose lowering technique was utilized adhering to t he principles of ALARA. FINDINGS: The heart is moderately enlarged. There is no pericardial effusion. Prominent mediastinal lymph nodes are unchanged and CT of June 06, 2018. There is no pneumothorax or pleural effusion. There is no lobar consolidation. A 4 mm left lower lobe pulmonary nodule on image 201 of 266 is unch anged since CT of June 06, 2018. This benign. Scattered foci subpleural reticulation are chronic . There is mild groundglass opacity within the lungs. There may be mild interlobular septal thickenin g. Mild splenomegaly is noted. There is enlargement of the lateral segment of the liver. IMPRESSION: 1. Mild groundglass opacity with interstitial thickening within the lungs. This may reflect mild pulm onary edema, infectious etiology or air-trapping. 2. No consolidation identified. 3. Moderate cardiomegaly. ACT 112: Negative or not required by law. Electronically signed by: David Lugo M.D. 07/19/2020 8:30 AM
[2020-07-19] MEDS: INSULIN GLARGINE SOLOSTAR 100 UNITS/ML 3 ML PEN SC SCH ×2 (09:03→20:35)
[2020-07-19] MEDS: INSULIN ASPART 100 UNITS/ML 3 ML PEN SC SCH ×5 (09:03→20:34)
[2020-07-19] MEDS: traMADol HCL 50 MG TABLET PO PRN ×3 (09:10→20:36)
[2020-07-19 09:11] LABS: Estimated Average Glucose 177 mg/dl; Hemoglobin A1C 7.8 % (4.5-5.6)
[2020-07-19 09:23] LABS: Amphetamines+Metham, Urine Neg (Neg); Barbiturates, Urine Neg (Neg); Benzodiazepine, Urine Neg (Neg); Cocaine, Urine Neg (Neg); MDMA (Ecstacy), Urine Pos (Neg); Methadone, Urine Neg (Neg); Opiate, Urine Pos (Neg); Phencyclidine, Urine Neg (Neg)
[2020-07-19 11:34] LABS: BUN Creatinine Ratio 17.1 (10-20); Calcium 8.5 mg/dl (8.5-10.1); Creatinine Clr Calc Pharmacy 40.3 ml/min; Est GFR (African American) 28.4; Est GFR (Non-African American) 24.5; Magnesium 1.8 mg/dl (1.8-2.4); Potassium 4.1 mmol/L (3.5-5.1)
[2020-07-19 11:46] LABS: Beta-Hydroxybutyrate 1.15 mg/dl (0.2-2.81)
[2020-07-19] MEDS ORDERED: XOPENEX/ATROVENT 1.25mg/0.5MG NEB COMBO NEB SCH (13:00)
--- NOTE | 2020-07-19 15:50 | Hospitalist Progress Note ---
Date of Service July 19, 2020 Assessment & Plan (1) Dizziness: Dizziness Likely Multifactorial: Infection, Medications, Low BP Head CT: No acute intracranial abnormality. Extensive white matter hypodensities statistically favor chronic microvascular ischemic disease. Normal Ammonia levels Chronic hypercarbia Received IV Fluids Cyclobenzaprine, Vicodin held Monitor BP Possible Sepsis Sources: UTI, Atypical Pneumonia, R/O lyme disease Chest CT:Mild groundglass opacity with interstitial thickening within the lungs. This may reflect mild pulmonary edema, infectious etiology or air-trapping. No consolidation identified. Moderate cardiomegaly. Blood/Urine Cx:pending Normal Lactate Empirically on Doxycycline, cefepime Acute on chronic respiratory failure with hypoxia Chronic oxygen dependency--2 L at bedtime Influenza, COVID screen:Negative Obstructive sleep apnea CT chest as above May need to step prior to discharge Continue supplemental oxygen as needed Continue CPAP at bedtime ELSIE on CKD III Monitor renal function Lasix on hold Received IV fluids Avoid nephrotoxic agents as able Right sacroiliitis Consider Ortho eval if needed PT/OT Avoid narcotics as able Anxiety/mood disorder Fibromyalgia Restless leg syndrome) Continue current medications Hypothyroidism TSH normal Continue levothyroxine Chronic diastolic heart failure EF:60 to 65%, TTE 2019) Monitor volume status Resume diuretics as able DM II HbA1C: 7.8 Continue Novolog/Lantus Monitor BGs H/O PE, DVT H/O HIT S/P IVC filter Hypokalemia Hypomagnesemia Replete electrolytes DVT Px: SCDs RE H/O HIT Code Status Full code Disposition PT/OT prior to discharge Admission and Anticipated Discharge Date Admission Date: July 19, 2020 Subjective Patient is seen in examined at bedside More alert awake this morning Reported transient left-sided chest discomfort this morning which resolved States having dysuria intermittently, reports associated chronic abdominal pain which is unchanged Also states having bilateral foot pain, cough, right sciatic pain, mild headache Denies dyspnea, dizziness, nausea Review of Systems Review of Systems: All systems reviewed & are unremarkable except as noted in HPI & below Physical Exam Physical Exam: Physical Exam: Vitals signs as noted above General Appearance:Morbidly Obese, no apparent distress Head: normocephalic, Atraumatic Eyes: normal inspection, EOMI Neck: supple, Trachea midline Respiratory/Chest: Normal breath sounds, CTA Cardiovascular: S1, S2, No murmur Abdomen/GI:Soft, Mild tender, Bowel sounds present Extremities/Musculoskelatal:normal inspection, 1+ B/L LE edema Neurologic/Psych:AAOX3, grossly no focal neurological deficits Skin: normal color, warm Results & Data Results & Data ([facility]) Vital Signs (Past 12 Hours) Vital Signs Temp Pulse Pulse Resp BP BP Pulse Ox 07/19/20 15:00 94 H 07/19/20 13:15 80 20 94 07/19/20 11:52 36.6 C 93 H 18 106/69 95 07/19/20 08:02 36.6 C 88 20 104/60 93 07/19/20 07:32 83 07/19/20 07:29 82 19 92 07/19/20 06:22 87 07/19/20 06:11 37 C 96 H 16 105/65 90 07/19/20 05:01 90 18 96/60 L 96 07/19/20 04:51 80 18 97 07/19/20 04:30 81 20 98/62 L 95 07/19/20 04:00 80 20 93/63 L 98 07/19/20 03:39 84 20 92/67 L 97 Laboratory Results Short CBC 07/19/20 Range/Units 00:05 WBC 15.93 H (4.8-10.8) K/uL Hgb 13.3 (12.0-16.0) g/dL Hct 41.1 (37-47) % Plt Count 242 (130-400) K/uL BMP 07/19/20 07/19/20 00:05 10:05 Sodium 136 137 Potassium 3.2 L 4.1 D Chloride 102 103 Carbon Dioxide 29 26 BUN 36 H 35 H Creatinine 2.09 H 2.07 H Glucose 137 H 303 H* Calcium 8.4 L 8.5 Cardiac Enzymes 07/19/20 Range/Units 00:05 Troponin I < 0.015 (0-0.045) ng/ml Liver Function 07/19/20 Range/Units 00:05 Total Bilirubin 0.5 (0.2-1) mg/dl AST 13 L (15-37) U/L ALT 23 (12-78) U/L Alkaline Phosphatase 88 (45-117) U/L Albumin 3.1 L (3.4-5.0) gm/dl Urine 07/19/20 Range/Units 02:10 Urine Color Yellow Urine Appearance Cloudy A (Clear) Urine pH 5.0 (4.5-7.5) Ur Specific [place] 1.014 (1.000-1.030) Urine Protein Negative (Negative) Urine Glucose (UA) Negative (Negative)
[2020-07-19] MEDS: DOCUSATE SODIUM 100 MG CAP PO SCH ×2 (16:18→20:18)
[2020-07-19] MEDS: NORTRIPTYLINE HCL 25 MG CAP PO SCH (20:18)
[2020-07-19] MEDS: DOXYCYCLINE HYCLATE 100 MG CAP PO SCH (20:19)
[2020-07-19] MEDS: PANTOprazole 40 MG TAB PO SCH (20:19)
[2020-07-19] MEDS: traZODone HCL 50 MG TAB PO SCH (20:20)
--- NOTE | 2020-07-19 22:31 | Emergency Department Note ---
History of Present Illness General Chief complaint: Dizziness Stated complaint: Dizziness Time Seen by Provider: 07/19/20 00:05 History of Present Illness Maximum Pain Intensity: 4 This is a 65-year-old female presenting to the emergency department via EMS for evaluation of weakness, lightheadedness, and dizziness for roughly the past 1 hour. The patient states that she was at home on her couch, when she began having symptoms. She got up, and walked out to the kitchen, and felt like she was going to pass out. The patient then contacted EMS and now presents for evaluation. She does have a past history of diabetes, chronic kidney disease, heart failure, sleep apnea, and pulmonary embolism with zoraida filter. She states that she has been feeling well throughout the day and has not reported any fevers or chills. She arrives to the facility at 84% on room air and does not usually use oxygen at night other than her CPAP for the sleep apnea. She was placed on oxygen immediately upon arrival. The patient does not report any recent travel history or falls. She feels like she can move her arms and legs as normal. She does not report any numbness or paresthesias. Her current discomfort is rated a 4/10. Home Medications Home Medications Medication Instructions Recorded Confirmed Type clonazepam 0.5 mg PO BID 06/09/18 07/19/20 History levothyroxine 25 mcg PO QAM 06/09/18 07/19/20 History levothyroxine 200 mcg PO QAM 06/09/18 07/19/20 History metoprolol tartrate 12.5 mg PO BID 06/09/18 07/19/20 History omeprazole 20 mg PO HS 06/09/18 07/19/20 History cyclobenzaprine 10 mg PO HS PRN 12/08/18 07/19/20 History duloxetine 60 mg PO QAM 12/23/18 07/19/20 History gabapentin 300 mg PO TID 05/09/19 07/19/20 History acetaminophen [Tylenol Extra 1,000 mg PO Q6H PRN 11/30/19 07/19/20 History Strength] dulaglutide [Trulicity] 1.5 mg SUBCUT WK 11/30/19 07/19/20 History colchicine 0.3 mg PO DAILY PRN 01/25/20 07/19/20 History duloxetine 30 mg PO DAILY 01/25/20 07/19/20 History furosemide [Lasix] 60 mg PO DAILY 01/25/20 07/19/20 History insulin aspart U-100 [Novolog 0 unit SUBCUT ACHS 01/25/20 07/19/20 History U-100 Insulin aspart] magnesium oxide 400 mg PO DAILY 01/25/20 07/19/20 History nortriptyline [Pamelor] 50 mg PO HS 01/25/20 07/19/20 History ropinirole [Requip XL] 2 mg PO HS PRN 01/25/20 07/19/20 History trazodone 50 mg PO HS 01/25/20 07/19/20 History potassium chloride 10 meq PO Q OTHER DAY 03/10/20 07/19/20 History dicyclomine 20 mg PO TID PRN #20 tab 03/13/20 07/19/20 Rx bupropion HCl 150 mg PO DAILY 07/19/20 07/19/20 History hydrocodone-acetaminophen 1 tab PO DIRECTED PRN 07/19/20 07/19/20 History tramadol 50 mg PO DIRECTED PRN 07/19/20 07/19/20 History Allergies Allergy/AdvReac Type Severity Reaction Status Date / Time morphine Allergy Severe VIOLENT Verified 07/19/20 02:43 REACTION-"ALMOST " SWELLING tetanus toxoid, adsorbed Allergy Intermediate PASSED OUT Verified 07/19/20 02:43 AND GOT SICK WHEN A CHILD acetaminophen [From Vicodin] AdvReac Intermediate sleepiness Verified 07/19/20 04:03 codeine AdvReac Intermediate Hallucinati Verified 07/19/20 02:43 ons empagliflozin AdvReac Intermediate YEAST Verified 07/19/20 02:43 [From Jardiance] INFECTIONS heparin AdvReac Intermediate HIT; FLUID Verified 07/19/20 02:43 IN LUNGS hydrocodone [From Vicodin] AdvReac Intermediate sleepiness Verified 07/19/20 04:03 Past Med/Surg History Medical History CKD (chronic kidney disease), stage III Depression with anxiety Diabetes Fibromyalgia GERD (gastroesophageal reflux disease) History of DVT (deep vein thrombosis) History of pulmonary embolism s/p zoraida filter HIT (heparin-induced thrombocytopenia) HLD (hyperlipidemia) HTN (hypertension) Hypothyroidism Morbid obesity ELISSA on CPAP Presence of IVC filter RLS (restless legs syndrome) Sepsis Surgical History History of cholecystectomy History of colon resection secondary to R colon perforation, resected treated with colostomy and eventual reversal in 2008, Dr. Lerma History of thyroidectomy, total History of total right knee replacement History of tracheostomy 2010, secondary to acute resp failure secondary to pneumonia, transferred [place] [facility] [place] Family History Father , age 74 Lung cancer Mother , age 45 Cirrhosis Social History Smoking Status: Never smoker Cigarettes Per Day: 15 pack year hx; Second Hand Exposure: No; Hx Alcohol Use: No Hx Substance Use: No Preferred Language: Emirati Communication Ability: Effective Director [employer] Work Required: No Beliefs That Will Affect Care: None marital status: Single Current Living Situation: Alone How many Children do You have: 0 Feels Safe at Home: Yes Assistive Devices: Glasses, Oxygen - Continuous and Walker Review of Systems A total of 10 systems reviewed and were otherwise negative Physical Exam Vital Signs Vital Signs - 24 hr 07/19/20 00:11 07/19/20 00:16 07/19/20 01:05 Temperature 36.8 C Temperature Source Oral Pulse Rate 84 82 Pulse Rate from SpO2 Sensor 82 Respiratory Rate 20 21 Respiratory Effort / Characteristics Non-Labored Spontaneous Respiratory Depth Normal Blood Pressure 94/56 L 91/54 L Blood Pressure Mean 68 73 Pulse Oximetry 84 L 84 L 92 Oxygen Delivery Method Room Air Nasal Cannula Nasal Cannula Oxygen Flow Rate 0 4 Sepsis Recent Fever Within 48 Hours No Sepsis New/Unexplained Change in Mental Status No Sepsis Action Taken by Nursing No Action Required Oxygen Flow Rate - Titration 4 Pulse Oximetry Post Tiitration 94 07/19/20 01:32 07/19/20 02:32 07/19/20 03:00 Temperature Temperature Source Pulse Rate 81 81 80 Pulse Rate from SpO2 Sensor 82 80 82 Respiratory Rate 19 22 20 Respiratory Effort / Characteristics Respiratory Depth Blood Pressure 123/53 L 111/57 L Blood Pressure Mean 75 72 Pulse Oximetry 93 96 94 Oxygen Delivery Method Nasal Cannula Nasal Cannula Nasal Cannula Oxygen Flow Rate 4 4 4 Sepsis Recent Fever Within 48 Hours Sepsis New/Unexplained Change in Mental Status Sepsis Action Taken by Nursing Oxygen Flow Rate - Titration Pulse Oximetry Post Tiitration 07/19/20 03:39 07/19/20 04:00 Temperature Temperature Source Pulse Rate 84 80 Pulse Rate from SpO2 Sensor 84 80 Respiratory Rate 20 20 Respiratory Effort / Characteristics Respiratory Depth Blood Pressure 92/67 L 93/63 L Blood Pressure Mean 76 77 Pulse Oximetry 97 98 Oxygen Delivery Method Nasal Cannula Nasal Cannula Oxygen Flow Rate 2 2 Sepsis Recent Fever Within 48 Hours Sepsis New/Unexplained Change in Mental Status Sepsis Action Taken by Nursing Oxygen Flow Rate - Titration Pulse Oximetry Post Tiitration VITALS: Vitals are noted on the nurse's note and reviewed by myself. Vital signs with borderline hypertension and low O2 saturation GENERAL: Morbidly obese white female who appears older than her stated age. She is able to speak in complete sentences HEAD: Normocephalic atraumatic. MOUTH: Mucous membranes moist. Tonsils are not enlarged. Pharynx without erythema, blood, or exudate. Uvula midline. Airway patent. NECK: Supple without nuchal rigidity. No lymphadenopathy. No thyromegaly. Cervical spine is nontender. HEART: Regular rate and rhythm LUNGS: Distant breath sounds but generally clear bilateral MUSCULOSKELETAL: No muscle atrophy, erythema, or edema noted. Full range of motion in all extremities. NEURO: Patient was alert and oriented to person place and time. CN II through XII grossly intact. SKIN: The skin was without rashes, erythema, edema, or bruising. Capillary refill less than 2 seconds. Course Administered Medications Acetaminophen (Acetaminophen 325 Mg Tab) 650 mg PO Q4H PRN PRN Reason: Pain or Fever Stop: 08/18/20 06:00 Last Admin: 07/19/20 11:57 Dose: 650 mg Documented by: [id number] Bupropion HCl (Bupropion Xl 150 Mg Tabcr) 150 mg PO DAILY [facility] Stop: 08/18/20 08:59 Last Admin: 07/19/20 07:53 Dose: 150 mg Documented by: [id number] Clonazepam (Clonazepam 0.5 Mg Tab) 0.5 mg PO BID ROBERT Stop: 08/18/20 08:59 Last Admin: 07/19/20 20:21 Dose: 0.5 mg Documented by: [id number] Admin: 07/19/20 08:03 Dose: 0.5 mg Documented by: [id number] Docusate Sodium (Docusate Sodium 100 Mg Cap) 100 mg PO BID [facility] Stop: 08/18/20 16:14 Last Admin: 07/19/20 20:18 Dose: 100 mg Documented by: [id number] Admin: 07/19/20 16:18 Dose: 100 mg Documented by: [id number] Doxycycline Hyclate (Doxycycline Hyclate 100 Mg Cap) 100 mg PO BID ROBERT Stop: 07/26/20 20:59 Last Admin: 07/19/20 20:19 Dose: 100 mg Documented by: [id number] Duloxetine HCl (Duloxetine Hcl 30 Mg Cap) 30 mg PO DAILY ROBERT Stop: 08/18/20 08:59 Last Admin: 07/19/20 07:52 Dose: 30 mg Documented by: [id number] Duloxetine HCl (Duloxetine Hcl 60 Mg Cap) 60 mg PO QAM ROBERT Stop: 08/18/20 08:59 Last Admin: 07/19/20 07:52 Dose: 60 mg Documented by: [id number] Gabapentin (Gabapentin 300 Mg Cap) 300 mg PO TID ROBERT Stop: 08/18/20 08:59 Last Admin: 07/19/20 20:19 Dose: 300 mg Documented by: [id number] Admin: 07/19/20 13:41 Dose: 300 mg Documented by: [id number] Admin: 07/19/20 07:53 Dose: 300 mg Documented by: [id number] Guaifenesin (Guaifenesin 600 Mg Tabcr) 600 mg PO Q12 ROBERT Stop: 08/18/20 08:59 Last Admin: 07/19/20 20:19 Dose: 600 mg Documented by: [id number] Admin: 07/19/20 07:52 Dose: 600 mg Documented by: [id number] Insulin Aspart (Insulin Aspart 100 Units/Ml 3 Ml Pen) 0 units SC ACHS ROBERT Stop: 08/18/20 11:29 Last Admin: 07/19/20 20:34 Dose: 7 units Documented by: [id number] Cosigned by: [id number] Admin: 07/19/20 17:06 Dose: 11 units Documented by: [id number] Cosigned by: [id number] Admin: 07/19/20 12:12 Dose: 8 units Documented by: [id number] Cosigned by: [id number] Admin: 07/19/20 09:07 Dose: 10 units Documented by: [id number] Cosigned by: [id number] Insulin Glargine (Insulin Glargine Solostar 100 Units/Ml 3 Ml Pen) 5 units SC BID ROBERT Stop: 08/18/20 08:59 Last Admin: 07/19/20 20:35 Dose: 5 units Documented by: [id number] Cosigned by: [id number] Admin: 07/19/20 09:03 Dose: Not Given Documented by: [id number] Ipratropium [place] (Ipratropium [place] Neb Soln 0.02% 2.5 Ml Vial) 0.5 mg INH Q6R [facility] Stop: 08/18/20 06:59 Last Admin: 07/19/20 19:55 Dose: 0.5 mg Documented by: [id number] Admin: 07/19/20 13:14 Dose: 0.5 mg Documented by: [id number] Admin: 07/19/20 07:29 Dose: 0.5 mg Documented by: [id number] Levalbuterol HCl (Levalbuterol 1.25mg/0.5ml Neb) 1.25 mg INH Q6R [facility] Stop: 08/18/20 06:59 Last Admin: 07/19/20 19:55 Dose: 1.25 mg Documented by: [id number] Admin: 07/19/20 13:14 Dose: 1.25 mg Documented by: [id number] Admin: 07/19/20 07:29 Dose: 1.25 mg Documented by: [id number] Levothyroxine Sodium (Levothyroxine Sodium 25 Mcg Tablet) 25 mcg PO DAILYBB [facility] Stop: 08/18/20 06:29 Last Admin: 07/19/20 07:51 Dose: 25 mcg Documented by: [id number] Levothyroxine Sodium (Levothyroxine Sodium 200 Mcg Tablet) 200 mcg PO DAILYBB [facility] Stop: 08/18/20 06:29 Last Admin: 07/19/20 07:51 Dose: 200 mcg Documented by: [id number] Lidocaine (Lidocaine 5% 1 Patch) 1 patch TD QAM ROBERT Stop: 08/18/20 06:00 Last Admin: 07/19/20 07:51 Dose: 1 patch Documented by: [id number] Metoprolol Tartrate (Metoprolol Tartrate 25 Mg Tab) 12.5 mg PO BID [facility] Stop: 08/18/20 08:59 Last Admin: 07/19/20 20:21 Dose: 12.5 mg Documented by: [id number] Admin: 07/19/20 07:53 Dose: 12.5 mg Documented by: [id number] Miscellaneous (Remove Lidoderm Patch) 1 ea N/A DAILY@2100 [facility] Stop: 08/18/20 20:59 Last Admin: 07/19/20 21:48 Dose: 1 ea Documented by: [id number] Nortriptyline HCl (Nortriptyline Hcl 25 Mg Cap) 50 mg PO [facility] Stop: 08/18/20 20:59 Last Admin: 07/19/20 20:18 Dose: 50 mg Documented by: [id number] Pantoprazole Sodium (Pantoprazole 40 Mg Tab) 40 mg PO [facility] Stop: 08/18/20 20:59 Last Admin: 07/19/20 20:19 Dose: 40 mg Documented by: [id number] Ropinirole HCl (Ropinirole Hcl 1 Mg Tablet) 1 mg PO HS PRN PRN Reason: restless legs Stop: 08/18/20 21:58 Last Admin: 07/19/20 22:58 Dose: 1 mg Documented by: [id number] Tramadol HCl (Tramadol Hcl 50 Mg Tablet) 25 - 50 mg PO Q4H PRN PRN Reason: Pain Stop: 08/18/20 06:00 Last Admin: 07/19/20 20:36 Dose: 50 mg Documented by: [id number] Admin: 07/19/20 13:41 Dose: 50 mg Documented by: [id number] Admin: 07/19/20 09:10 Dose: 25 mg Documented by: [id number] Trazodone HCl (Trazodone Hcl 50 Mg Tab) 50 mg PO [facility] Stop: 08/18/20 20:59 Last Admin: 07/19/20 20:20 Dose: 50 mg Documented by: [id number] Discontinued Medications Albuterol (Albut/Ipratrop 3mg/0.5mg Neb 3 Ml Vial) 3 ml NEB NOW STA Stop: 07/19/20 03:58 Last Admin: 07/19/20 04:49 Dose: 3 ml Documented by: [id number] Ceftriaxone Sodium (Rocephin) 2,000 mg in 70 mls @ 140 mls/hr IV NOW STA Stop: 07/19/20 02:58 Last Infusion: 07/19/20 03:53 Dose: 0 mls/hr Documented by: [id number] Admin: 07/19/20 03:18 Dose: 140 mls/hr Documented by: [id number] Doxycycline Hyclate 100 mg/ (Dextrose) 110 mls @ 50 mls/hr IV NOW STA Stop: 07/19/20 04:40 Last Infusion: 07/19/20 06:05 Dose: 0 mls/hr Documented by: [id number] Admin: 07/19/20 03:53 Dose: 50 mls/hr Documented by: [id number] Parenteral Electrolytes (Normosol-R) 500 mls @ 999 mls/hr IV .Q31M STA Stop: 07/19/20 03:37 Last Infusion: 07/19/20 06:03 Dose: 0 mls/hr Documented by: [id number] Admin: 07/19/20 04:57 Dose: 999 mls/hr Documented by: [id number] Magnesium Sulfate/Dextrose (Magnesium Sulfate / D5w) 1 gm in 100 mls @ 50 mls/ hr IV Q2H ROBERT Stop: 07/19/20 10:29 Last Infusion: 07/19/20 12:11 Dose: 0 mls/hr Documented by: [id number] Admin: 07/19/20 10:05 Dose: 50 mls/hr Documented by: [id number] Infusion: 07/19/20 09:47 Dose: 50 mls/hr Documented by: [id number] Admin: 07/19/20 07:47 Dose: 50 mls/hr Documented by: [id number] Potassium Chloride 40 meq/ (Sodium Chloride) 1,020 mls @ 75 mls/hr IV .[id number] ONE Stop: 07/19/20 20:05 Last Infusion: 07/19/20 20:30 Dose: 0 mls/hr Documented by: [id number] Admin: 07/19/20 06:54 Dose: 75 mls/hr Documented by: [id number] Cefepime HCl 2,000 mg/ Syringe 20 mls @ 5 mls/min IV ONE ONE; Protocol Stop: 07/19/20 06:33 Last Admin: 07/19/20 07:49 Dose: 5 mls/min Documented by: [id number] Insulin Glargine (Insulin Glargine Solostar 100 Units/Ml 3 Ml Pen) 5 units SC NOW STA Stop: 07/19/20 06:02 Last Admin: 07/19/20 07:50 Dose: 5 units Documented by: [id number] Cosigned by: [id number] Methylprednisolone (Methylprednisolone 40 Mg/Ml Vial) 20 mg IV ONE STA Stop: 07/19/20 03:09 Last Admin: 07/19/20 03:59 Dose: 20 mg Documented by: [id number] Miscellaneous (Requip Xl - Order Awaiting Action) 1 ea N/A QS ROBERT Stop: 08/18/20 07:59 Last Admin: 07/19/20 15:58 Dose: Not Given Documented by: [id number] Admin: 07/19/20 07:49 Dose: Not Given Documented by: [id number] Potassium Chloride (Potassium Chloride 20 Meq Tabcr) 40 meq PO NOW STA Stop: 07/19/20 03:07 Last Admin: 07/19/20 03:59 Dose: 40 meq Documented by: [id number] Medical Decision Making Differential Diagnosis Differential includes acute coronary syndrome, myocardial infarction, CVA, TIA, anemia, infection, pneumonia, UTI, pyelonephritis, poor nutrition, dehydration, electrolyte disturbance,hypoglycemia. Laboratory Data Result diagrams: 07/19/20 00:05 07/19/20 10:05 Lab Results 07/19/20 07/19/20 07/19/20 Range/Units 00:05 00:05 00:05 WBC 15.93 H (4.8-10.8) K/uL RBC 4.32 (4.2-5.4) M/uL Hgb 13.3 (12.0-16.0) g/dL Hct 41.1 (37-47) % MCV 95.1 (80-100) fL MCH 30.8 (25-34) pg MCHC 32.4 (32-36) g/dL RDW Std Deviation 53.2 H (36.4-46.3) fL RDW Coeff of Adolfo 15.3 H (11.5-14.5) % Plt Count 242 (130-400) K/uL MPV 10.2 (7.4-10.4) fL Immature Gran % (Auto) 0.7 % Neut % (Auto) 74.5 % Lymph % (Auto) 17.6 % Citrus % (Auto) 4.4 % Eos % (Auto) 2.7 % Baso % (Auto) 0.1 % Neut # (Auto) 11.87 H (1.4-6.5) K/uL Lymph # (Auto) 2.80 (1.2-3.4) K/uL Citrus # (Auto) 0.70 H (0.11-0.59) K/uL Eos # (Auto) 0.43 (0-0.5) K/uL Baso # (Auto) 0.02 (0-0.2) K/uL Immature Gran # (Auto) 0.11 H (0.00-0.02) K/uL PT 11.3 (9.0-12.0) Seconds INR 1.1 (0.9-1.1) APTT 26.4 (21.0-31.0) Seconds PTT Ratio 0.9 VBG pH (7.36-7.41) VBG pCO2 (38-50) mmHg VBG pO2 mmHg VBG HCO3 mmol/L VBG O2 Saturation % VBG Base Excess mEq/L Barometric Pressure mm/Hg Sodium 136 (136-145) mmol/L Potassium 3.2 L (3.5-5.1) mmol/L Chloride 102 (98-107) mmol/L Carbon Dioxide 29 (21-32) mmol/L Anion Gap 5.0 (3-11) BUN 36 H (7-18) mg/dl Creatinine 2.09 H (0.6-1.2) mg/dl Est Cr Clr Drug Dosing 41.0 ml/min Est GFR ( Amer) 28.1 Est GFR (Non-Af Amer) 24.2 BUN/Creatinine Ratio 17.0 (10-20) Glucose 137 H (70-99) mg/dl Estimat Average Glucose mg/dl Hemoglobin A1c (4.5-5.6) % Lactate (0.4-2.0) mmol/L Calcium 8.4 L (8.5-10.1) mg/dl Magnesium 1.5 L (1.8-2.4) mg/dl Total Bilirubin 0.5 (0.2-1) mg/dl AST 13 L (15-37) U/L ALT 23 (12-78) U/L Alkaline Phosphatase 88 (45-117) U/L Ammonia (11-32) umol/L Troponin I < 0.015 (0-0.045) ng/ml NT-Pro-B Natriuret Pep 130 (0-900) pg/ml Total Protein 7.6 (6.4-8.2) gm/dl Albumin 3.1 L (3.4-5.0) gm/dl Globulin 4.5 H (2.5-4.0) gm/dl Albumin/Globulin Ratio 0.7 L (0.9-2) TSH 3.030 (0.300-4.500) uIu/ml Urine Color Urine Appearance (Clear) Urine pH (4.5-7.5) Ur Specific [place] (1.000-1.030) Urine Protein (Negative) Urine Glucose (UA) (Negative) Urine Ketones (Negative) Urine Blood (Negative) Urine Nitrite (Negative) Urine Bilirubin (Negative) Urine Urobilinogen (Negative) Ur Leukocyte Esterase (Negative) Urine WBC (Auto) (0-5) /hpf Urine RBC (Auto) (0-4) /hpf U Hyaline Cast (Auto) (0-5) /lpf U Epithel Cells (Auto) (0-5) /lpf Urine Bacteria (Auto) (Negative) Lyme Disease IgG Ab (Negative) Lyme Disease IgM Ab (Negative) COVID-19 Eval Order COVID-19 PCR (Negative) Influ A Molecular Assay (Negative) Influ B Molecular Assay (Negative) 07/19/20 07/19/20 07/19/20 Range/Units 00:05 00:05 00:24 WBC (4.8-10.8) K/uL RBC (4.2-5.4) M/uL Hgb (12.0-16.0) g/dL Hct (37-47) % MCV (80-100) fL MCH (25-34) pg MCHC (32-36) g/dL RDW Std Deviation (36.4-46.3) fL RDW Coeff of Adolfo (11.5-14.5) % Plt Count (130-400) K/uL MPV (7.4-10.4) fL Immature Gran % (Auto) % Neut % (Auto) % Lymph % (Auto) % Citrus % (Auto) % Eos % (Auto) % Baso % (Auto) % Neut # (Auto) (1.4-6.5) K/uL Lymph # (Auto) (1.2-3.4) K/uL Citrus # (Auto) (0.11-0.59) K/uL Eos # (Auto) (0-0.5) K/uL Baso # (Auto) (0-0.2) K/uL Immature Gran # (Auto) (0.00-0.02) K/uL PT (9.0-12.0) Seconds INR (0.9-1.1) APTT (21.0-31.0) Seconds PTT Ratio VBG pH 7.35 L (7.36-7.41) VBG pCO2 52 H (38-50) mmHg VBG pO2 65 mmHg VBG HCO3 28 mmol/L VBG O2 Saturation 91.4 % VBG Base Excess 1.2 mEq/L Barometric Pressure 733.1 mm/Hg Sodium (136-145) mmol/L Potassium (3.5-5.1) mmol/L Chloride (98-107) mmol/L Carbon Dioxide (21-32) mmol/L Anion Gap (3-11) BUN (7-18) mg/dl Creatinine (0.6-1.2) mg/dl Est Cr Clr Drug Dosing ml/min Est GFR ( Amer) Est GFR (Non-Af Amer) BUN/Creatinine Ratio (10-20) Glucose (70-99) mg/dl Estimat Average Glucose 177 mg/dl Hemoglobin A1c 7.8 H (4.5-5.6) % Lactate (0.4-2.0) mmol/L Calcium (8.5-10.1) mg/dl Magnesium (1.8-2.4) mg/dl Total Bilirubin (0.2-1) mg/dl AST (15-37) U/L ALT (12-78) U/L Alkaline Phosphatase (45-117) U/L Ammonia (11-32) umol/L Troponin I (0-0.045) ng/ml NT-Pro-B Natriuret Pep (0-900) pg/ml Total Protein (6.4-8.2) gm/dl Albumin (3.4-5.0) gm/dl Globulin (2.5-4.0) gm/dl Albumin/Globulin Ratio (0.9-2) TSH (0.300-4.500) uIu/ml Urine Color Urine Appearance (Clear) Urine pH (4.5-7.5) Ur Specific [place] (1.000-1.030) Urine Protein (Negative) Urine Glucose (UA) (Negative) Urine Ketones (Negative) Urine Blood (Negative) Urine Nitrite (Negative) Urine Bilirubin (Negative) Urine Urobilinogen (Negative) Ur Leukocyte Esterase (Negative) Urine WBC (Auto) (0-5) /hpf Urine RBC (Auto) (0-4) /hpf U Hyaline Cast (Auto) (0-5) /lpf U Epithel Cells (Auto) (0-5) /lpf Urine Bacteria (Auto) (Negative) Lyme Disease IgG Ab Negative (Negative) Lyme Disease IgM Ab Equivocal A (Negative) COVID-19 Eval Order COVID-19 PCR (Negative) Influ A Molecular Assay (Negative) Influ B Molecular Assay (Negative) 07/19/20 07/19/20 07/19/20 Range/Units 01:04 01:04 01:15 WBC (4.8-10.8) K/uL RBC (4.2-5.4) M/uL Hgb (12.0-16.0) g/dL Hct (37-47) % MCV (80-100) fL MCH (25-34) pg MCHC (32-36) g/dL RDW Std Deviation (36.4-46.3) fL RDW Coeff of Adolfo (11.5-14.5) % Plt Count (130-400) K/uL MPV (7.4-10.4) fL Immature Gran % (Auto) % Neut % (Auto) % Lymph % (Auto) % Citrus % (Auto) % Eos % (Auto) % Baso % (Auto) % Neut # (Auto) (1.4-6.5) K/uL Lymph # (Auto) (1.2-3.4) K/uL Citrus # (Auto) (0.11-0.59) K/uL Eos # (Auto) (0-0.5) K/uL Baso # (Auto) (0-0.2) K/uL Immature Gran # (Auto) (0.00-0.02) K/uL PT (9.0-12.0) Seconds INR (0.9-1.1) APTT (21.0-31.0) Seconds PTT Ratio VBG pH (7.36-7.41) VBG pCO2 (38-50) mmHg VBG pO2 mmHg VBG HCO3 mmol/L VBG O2 Saturation % VBG Base Excess mEq/L Barometric Pressure mm/Hg Sodium (136-145) mmol/L Potassium (3.5-5.1) mmol/L Chloride (98-107) mmol/L Carbon Dioxide (21-32) mmol/L Anion Gap (3-11) BUN (7-18) mg/dl Creatinine (0.6-1.2) mg/dl Est Cr Clr Drug Dosing ml/min Est GFR ( Amer) Est GFR (Non-Af Amer) BUN/Creatinine Ratio (10-20) Glucose (70-99) mg/dl Estimat Average Glucose mg/dl Hemoglobin A1c (4.5-5.6) % Lactate (0.4-2.0) mmol/L Calcium (8.5-10.1) mg/dl Magnesium (1.8-2.4) mg/dl Total Bilirubin (0.2-1) mg/dl AST (15-37) U/L ALT (12-78) U/L Alkaline Phosphatase (45-117) U/L Ammonia (11-32) umol/L Troponin I (0-0.045) ng/ml NT-Pro-B Natriuret Pep (0-900) pg/ml Total Protein (6.4-8.2) gm/dl Albumin (3.4-5.0) gm/dl Globulin (2.5-4.0) gm/dl Albumin/Globulin Ratio (0.9-2) TSH (0.300-4.500) uIu/ml Urine Color Urine Appearance (Clear) Urine pH (4.5-7.5) Ur Specific [place] (1.000-1.030) Urine Protein (Negative) Urine Glucose (UA) (Negative) Urine Ketones (Negative) Urine Blood (Negative) Urine Nitrite (Negative) Urine Bilirubin (Negative) Urine Urobilinogen (Negative) Ur Leukocyte Esterase (Negative) Urine WBC (Auto) (0-5) /hpf Urine RBC (Auto) (0-4) /hpf U Hyaline Cast (Auto) (0-5) /lpf U Epithel Cells (Auto) (0-5) /lpf Urine Bacteria (Auto) (Negative) Lyme Disease IgG Ab (Negative) Lyme Disease IgM Ab (Negative) COVID-19 Eval Order Covid19 Done at [facility] COVID-19 PCR NEGATIVE (Negative) Influ A Molecular Assay Negative (Negative) Influ B Molecular Assay Negative (Negative) 10/24/20 10/24/20 10/24/20 Range/Units 02:10 04:05 04:05 WBC (4.8-10.8) K/uL RBC (4.2-5.4) M/uL Hgb (12.0-16.0) g/dL Hct (37-47) % MCV (80-100) fL MCH (25-34) pg MCHC (32-36) g/dL RDW Std Deviation (36.4-46.3) fL RDW Coeff of Adolfo (11.5-14.5) % Plt Count (130-400) K/uL MPV (7.4-10.4) fL Immature Gran % (Auto) % Neut % (Auto) % Lymph % (Auto) % Citrus % (Auto) % Eos % (Auto) % Baso % (Auto) % Neut # (Auto) (1.4-6.5) K/uL Lymph # (Auto) (1.2-3.4) K/uL Citrus # (Auto) (0.11-0.59) K/uL Eos # (Auto) (0-0.5) K/uL Baso # (Auto) (0-0.2) K/uL Immature Gran # (Auto) (0.00-0.02) K/uL PT (9.0-12.0) Seconds INR (0.9-1.1) APTT (21.0-31.0) Seconds PTT Ratio VBG pH (7.36-7.41) VBG pCO2 (38-50) mmHg VBG pO2 mmHg VBG HCO3 mmol/L VBG O2 Saturation % VBG Base Excess mEq/L Barometric Pressure mm/Hg Sodium (136-145) mmol/L Potassium (3.5-5.1) mmol/L Chloride (98-107) mmol/L Carbon Dioxide (21-32) mmol/L Anion Gap (3-11) BUN (7-18) mg/dl Creatinine (0.6-1.2) mg/dl Est Cr Clr Drug Dosing ml/min Est GFR ( Amer) Est GFR (Non-Af Amer) BUN/Creatinine Ratio (10-20) Glucose (70-99) mg/dl Estimat Average Glucose mg/dl Hemoglobin A1c (4.5-5.6) % Lactate 1.5 (0.4-2.0) mmol/L Calcium (8.5-10.1) mg/dl Magnesium (1.8-2.4) mg/dl Total Bilirubin (0.2-1) mg/dl AST (15-37) U/L ALT (12-78) U/L Alkaline Phosphatase (45-117) U/L Ammonia 16.0 (11-32) umol/L Troponin I (0-0.045) ng/ml NT-Pro-B Natriuret Pep (0-900) pg/ml Total Protein (6.4-8.2) gm/dl Albumin (3.4-5.0) gm/dl Globulin (2.5-4.0) gm/dl Albumin/Globulin Ratio (0.9-2) TSH (0.300-4.500) uIu/ml Urine Color Yellow Urine Appearance Cloudy A (Clear) Urine pH 5.0 (4.5-7.5) Ur Specific [place] 1.014 (1.000-1.030) Urine Protein Negative (Negative) Urine Glucose (UA) Negative (Negative) Urine Ketones Negative (Negative) Urine Blood Negative (Negative) Urine Nitrite Negative (Negative) Urine Bilirubin Negative (Negative) Urine Urobilinogen Negative (Negative) Ur Leukocyte Esterase 3+ H (Negative) Urine WBC (Auto) >30 H (0-5) /hpf Urine RBC (Auto) 0-4 (0-4) /hpf U Hyaline Cast (Auto) 1-5 (0-5) /lpf U Epithel Cells (Auto) 10-20 H (0-5) /lpf Urine Bacteria (Auto) 4+ H (Negative) Lyme Disease IgG Ab (Negative) Lyme Disease IgM Ab (Negative) COVID-19 Eval Order COVID-19 PCR (Negative) Influ A Molecular Assay (Negative) Influ B Molecular Assay (Negative) Imaging Data Radiologist's Impression: CT head/brain wo con CLINICAL HISTORY: 65 years-old Female with dizzy. Acute dizziness with weakness and hypoxia TECHNIQUE: Multiple axial CT images of the head were obtained without contrast. A dose lowering technique was utilized adhering to the principles of ALARA. COMPARISON: None. FINDINGS: No acute intracranial hemorrhage, midline shift, intracranial mass, hydrocephalus, territorial ischemia or abnormal extra-axial collection. Extensive white matter hypodensities. Cerebral vascular calcifications. The calvarium is intact. The paranasal sinuses, mastoid air cells, and middle ear cavities are clear. IMPRESSION: 1. No acute intracranial abnormality. 2. Extensive white matter hypodensities statistically favor chronic microvascular ischemic disease. CT OF THE CHEST WITHOUT IV CONTRAST CLINICAL HISTORY: dizzy, low 02 saturation COMPARISON STUDY: Chest CT June 06, 2018. Chest radiograph November 30, 2019. CT DOSE: 1813.00 mGy.cm TECHNIQUE: Axial images of the chest were obtained without IV contrast. Images were reviewed in the axial, sagittal, and coronal planes. IV contrast was not administered for this examination. Automated exposure control was utilized for the study. A dose lowering technique was utilized adhering to the principles of ALARA. FINDINGS: The heart is moderately enlarged. There is no pericardial effusion. P rominent mediastinal lymph nodes are unchanged and CT of June 06, 2018. There is no pneumothorax or pleural effusion. There is no lobar consolidation. A 4 mm left lower lobe pulmonary nodule on image 201 of [address] of June 06, 2018. This benign. Scattered foci subpleural reticulation are chronic. There is mild groundglass opacity within the lungs. There may be mild interlobular septal thickening. Mild splenomegaly is noted. There is enlargement of the lateral segment of the liver. IMPRESSION: 1. Mild groundglass opacity with interstitial thickening within the lungs. This may reflect mild pulmonary edema, infectious etiology or air-trapping. 2. No consolidation identified. 3. Moderate cardiomegaly. ECG Data Attestation: I personally reviewed and interpreted this ECG as follows: Indication: + weakness Additional Comments: Normal sinus rhythm @86bpm Low voltage QRS Nonspecific ST abnormality When compared with ECG of 13-MAR-2020 06:14, No significant change was found MDM Narrative Physical exam and history were performed. Nursing notes, EMR, and Medication List were personally reviewed. Patient appears to have weakness and dizziness bring her to the emergency department this evening. On presentation she is hypoxic at 84% on room air. She was immediately placed on oxygen 4 L, which corrected her to 93%. IV access was established and labs were obtained. CT scans of the head and chest were performed. The patient's blood work is as above and was reviewed. She does have an elevated white blood cell count of 15.9. She does not have a significant anemia. She is slightly acidotic with elevated PCO2 on VBG. Creatinine is elevated at 2.09, however this is roughly her baseline. Glucose is 137. Transaminases are not diagnostic. Lyme but she does not report any known recent tick bites. CT scan of the head and chest were reviewed by myself and radiology. She does not have acute findings on CT of the head. She may have pneumonia on CT of the chest which would correlate with her symptoms. Because of this a rapid Covid was performed and was negative. I discussed the case with my attending physician, Dr. Luevano, who remained involved in care decision making. The patient likely has community-acquired pneumonia. She was started on Rocephin and doxycycline here in the department. Overall the patient does not appear well for discharge home. She has hypoxic with likely pneumonia. The case was discussed with the [facility] team who agreed to evaluate her here in the ER. Please see their dictation for further patient course, plan, and disposition. The chart was completed utilizing [employer] Speech Voice Recognition Software. Grammatical errors, random word insertions, pronoun errors, and incomplete sentences are an occasional consequence of this system due to software limitations, ambient noise, and hardware issues. Any formal questions or concerns about the content, text, or information contained within the body of this dictation should be directly addressed to the provider for clarification. . Impression & Plan Pneumonia, Hypoxia, Weakness, COPD exacerbation, Lab test negative for COVID-19 virus Discharge Plan Visit Data Chief Complaint: Dizziness Stated Complaint: Dizziness ED Provider: Sadia Luevano ED Midlevel Provider: Kedar Fulton Discharge Problem: Pneumonia, Hypoxia, Weakness, COPD exacerbation, Lab test negative for COVID-19 virus Patient Disposition: Admitted As Inpatient Discharge Instructions Interventions: ED Discharge Assessment Last Done: 07/19/20 05:09 Discharge Problem: Pneumonia Qualifiers: Pneumonia type: due to unspecified organism Laterality: unspecified laterality Lung location: unspecified part of lung Qualified Code(s): J18.9 - Pneumonia, unspecified organism
[2020-07-19] MEDS: rOPINIRole HCL 1 MG TABLET PO PRN (22:58)
[2020-07-20] MEDS: LEVALBUTEROL 1.25MG/0.5ML NEB INH SCH ×4 (00:21→19:00)
[2020-07-20] MEDS: IPRATROPIUM BROMIDE NEB SOLN 0.02% 2.5 ML VIAL INH SCH ×4 (00:21→19:01)
[2020-07-20] MEDS: CEFEPIME 2,000 MG in SYRINGE 0 ML IV SCH (05:32)
[2020-07-20] MEDS: LEVOTHYROXINE SODIUM 200 MCG TABLET PO SCH (06:29)
[2020-07-20] MEDS: LEVOTHYROXINE SODIUM 25 MCG TABLET PO SCH (06:29)
[2020-07-20 07:48] LABS: Basophils # (auto) 0.03 K/uL (0-0.2); Basophils % (auto) 0.3 %; Eosinophils # (auto) 0.03 K/uL (0-0.5); Eosinophils % (auto) 0.3 %; Hematocrit (blood only) 41.8 % (37-47); Hemoglobin 13.1 g/dL (12.0-16.0); Immature Granulocytes # (auto) 0.13 K/uL (0.00-0.02); Immature Granulocytes % (auto) 1.1 %; Lymphocytes # (auto) 1.79 K/uL (1.2-3.4); Lymphocytes % (auto) 15.7 %; Mean Corpuscular Hemoglobin 30.4 pg (25-34); Mean Corpuscular Hgb Conc 31.3 g/dL (32-36); Monocytes # (auto) 0.57 K/uL (0.11-0.59); Neutrophils # (auto) 8.86 K/uL (1.4-6.5); Neutrophils % (auto) 77.6 %; Platelet Count 241 K/uL (130-400); RDW Standard Deviation 53.1 fL (36.4-46.3); Red Blood Count 4.31 M/uL (4.2-5.4); White Blood Count 11.41 K/uL (4.8-10.8)
[2020-07-20] MEDS: INSULIN ASPART 100 UNITS/ML 3 ML PEN SC SCH ×4 (08:09→20:26)
[2020-07-20] MEDS: clonazePAM 0.5 MG TAB PO SCH ×2 (08:12→20:24)
[2020-07-20] MEDS: DULoxetine HCL 60 MG CAP PO SCH (08:13)
[2020-07-20] MEDS: guaiFENesin 600 MG TABCR PO SCH ×2 (08:13→20:25)
[2020-07-20] MEDS: DOXYCYCLINE HYCLATE 100 MG CAP PO SCH ×2 (08:13→20:25)
[2020-07-20] MEDS: DOCUSATE SODIUM 100 MG CAP PO SCH ×2 (08:13→20:25)
[2020-07-20] MEDS: DULoxetine HCL 30 MG CAP PO SCH (08:13)
[2020-07-20] MEDS: GABAPENTIN 300 MG CAP PO SCH ×3 (08:13→20:25)
[2020-07-20] MEDS: LIDOCAINE 5% 1 PATCH TD SCH (08:14)
[2020-07-20] MEDS: METOPROLOL TARTRATE 25 MG TAB PO SCH ×2 (08:14→20:24)
[2020-07-20] MEDS: buPROPion XL 150 MG TABCR PO SCH (08:15)
[2020-07-20] MEDS: INSULIN GLARGINE SOLOSTAR 100 UNITS/ML 3 ML PEN SC SCH ×2 (08:16→20:26)
[2020-07-20 08:19] LABS: BUN Creatinine Ratio 17.9 (10-20); Creatinine Clr Calc Pharmacy 45.1 ml/min; Est GFR (African American) 32.1; Est GFR (Non-African American) 27.7; Potassium 3.7 mmol/L (3.5-5.1)
[2020-07-20] MEDS ORDERED: INSULIN GLARGINE SOLOSTAR 100 UNITS/ML 3 ML PEN SC SCH (09:00)
[2020-07-20] MEDS: ALUMINUM/MAGNESIUM/SIMETH (MAALOX MAX) 30 ML UDC PO PRN (12:20)
[2020-07-20] MEDS: traMADol HCL 50 MG TABLET PO PRN ×2 (13:50→20:24)
--- NOTE | 2020-07-20 16:05 | Hospitalist Progress Note ---
Date of Service July 20, 2020 Assessment & Plan (1) Dizziness: Dizziness Likely Multifactorial: Infection, Medications, Low BP Head CT: No acute intracranial abnormality. Extensive white matter hypodensities statistically favor chronic microvascular ischemic disease. Normal Ammonia levels Chronic hypercarbia Received IV Fluids BP better Resolved Possible Sepsis Sources: UTI, Atypical Pneumonia, R/O lyme disease Chest CT:Mild groundglass opacity with interstitial thickening within the lungs. This may reflect mild pulmonary edema, infectious etiology or air-trapping. No consolidation identified. Moderate cardiomegaly. Blood Culture:No growth to date Urine Culture: Gram Negative bacilli Normal Lactate Continue Doxycycline, cefepime Day #2 Acute on chronic respiratory failure with hypoxia Chronic oxygen dependency--2 L at bedtime H/O Nocturnal Hypoxia Influenza, COVID screen:Negative Obstructive sleep apnea Could have Obesity Hypoventilation syndrome CT chest as above May need 2 step prior to discharge Wean off of oxygen during day time as able Continue CPAP at bedtime ELSIE on CKD III Monitor renal function Lasix on hold Received IV fluids Avoid nephrotoxic agents as able Cr levels near baseline Right sacroiliitis PT/OT Avoid narcotics as able Anxiety/mood disorder Fibromyalgia Restless leg syndrome) Continue current medications Hypothyroidism TSH normal Continue levothyroxine Chronic diastolic heart failure EF:60 to 65%, TTE 2019) Monitor volume status Resume diuretics as able DM II HbA1C: 7.8 Continue Novolog/Lantus Monitor BGs H/O PE, DVT H/O HIT S/P IVC filter Hypokalemia Hypomagnesemia Replete electrolytes as needed DVT Px: SCDs RE H/O HIT Code Status Full code Disposition PT/OT prior to discharge Admission and Anticipated Discharge Date Admission Date: July 19, 2020 Subjective Patient is seen in examined at bedside Reports cough with expectoration Also has chronic foot pain, right sciatic pain Urine Culture growing gram negative bacilli Eager to get discharged Denies chest pain, dyspnea, dizziness, nausea Offers no other complaints Review of Systems Review of Systems: All systems reviewed & are unremarkable except as noted in HPI & below Physical Exam Physical Exam: Physical Exam: Vitals signs as noted above General Appearance:Morbidly Obese, no apparent distress Head: normocephalic, Atraumatic Eyes: normal inspection, EOMI Neck: supple, Trachea midline Respiratory/Chest: Normal breath sounds, CTA Cardiovascular: S1, S2, No murmur Abdomen/GI:Soft, Mild tender, Bowel sounds present Extremities/Musculoskelatal:normal inspection, 1+ B/L LE edema Neurologic/Psych:AAOX3, grossly no focal neurological deficits Skin: normal color, warm Results & Data Results & Data ([facility]) Vital Signs (Past 12 Hours) Vital Signs Temp Pulse Pulse Resp BP Pulse Ox 07/20/20 14:50 80 07/20/20 14:49 36.4 C L 82 18 129/72 90 07/20/20 12:55 75 20 96 07/20/20 12:22 95 07/20/20 12:03 37.1 C 71 18 128/83 97 07/20/20 07:16 81 07/20/20 07:08 82 20 96 07/20/20 06:56 36.7 C 78 20 127/61 97 Laboratory Results Short CBC 07/20/20 Range/Units 07:22 WBC 11.41 H (4.8-10.8) K/uL Hgb 13.1 (12.0-16.0) g/dL Hct 41.8 (37-47) % Plt Count 241 (130-400) K/uL BMP 07/20/20 07:22 Sodium 136 Potassium 3.7 Chloride 103 Carbon Dioxide 27 BUN 34 H Creatinine 1.87 H Glucose 217 H Calcium 9.0
[2020-07-20] MEDS ORDERED: CYCLOBENZAPRINE HCL 10 MG TAB PO PRN (16:14)
[2020-07-20] MEDS: PANTOprazole 40 MG TAB PO SCH (20:25)
[2020-07-20] MEDS: NORTRIPTYLINE HCL 25 MG CAP PO SCH (20:25)
[2020-07-20] MEDS: traZODone HCL 50 MG TAB PO SCH (20:25)
[2020-07-20] MEDS: rOPINIRole HCL 1 MG TABLET PO PRN (21:11)
--- NOTE | 2020-07-20 21:35 | Electrocardiogram Report ---
Test Reason : Blood Pressure : / mmHG Vent. Rate : 086 BPM Atrial Rate : 086 BPM P-R Int : 168 ms QRS Dur : 086 ms QT Int : 376 ms P-R-T Axes : 060 032 044 degrees QTc Int : 449 ms Normal sinus rhythm Low voltage QRS Nonspecific ST abnormality Abnormal ECG When compared with ECG of 13-MAR-2020 06:14, No significant change was found Confirmed by Parish Julien ([id number]) on 07/20/2020 9:35:31 PM Referred By: REFERRED SELF Confirmed By:Parish Julien
[2020-07-21] MEDS: LEVALBUTEROL 1.25MG/0.5ML NEB INH SCH ×2 (00:44→07:20)
[2020-07-21] MEDS: IPRATROPIUM BROMIDE NEB SOLN 0.02% 2.5 ML VIAL INH SCH ×2 (00:44→07:21)
[2020-07-21] MEDS: LEVOTHYROXINE SODIUM 200 MCG TABLET PO SCH (06:00)
[2020-07-21] MEDS: LEVOTHYROXINE SODIUM 25 MCG TABLET PO SCH (06:00)
[2020-07-21] MEDS: CEFEPIME 2,000 MG in SYRINGE 0 ML IV SCH (06:01)
[2020-07-21 06:48] LABS: Hematocrit (blood only) 42.5 % (37-47); Hemoglobin 13.6 g/dL (12.0-16.0); Mean Corpuscular Hemoglobin 30.9 pg (25-34); Mean Corpuscular Volume 96.6 fL (80-100); Mean Platelet Volume 9.9 fL (7.4-10.4); Platelet Count 233 K/uL (130-400); RDW Coefficient of Variation 15.1 % (11.5-14.5); RDW Standard Deviation 53.8 fL (36.4-46.3); White Blood Count 10.47 K/uL (4.8-10.8)
[2020-07-21 07:21] LABS: BUN Creatinine Ratio 20.3 (10-20); Calcium 9.1 mg/dl (8.5-10.1); Creatinine Clr Calc Pharmacy 46.3 ml/min; Est GFR (African American) 33.2; Est GFR (Non-African American) 28.6; Potassium 4.1 mmol/L (3.5-5.1)
[2020-07-21] MEDS: clonazePAM 0.5 MG TAB PO SCH ×2 (08:28→20:21)
[2020-07-21] MEDS: GABAPENTIN 300 MG CAP PO SCH ×3 (08:29→20:22)
[2020-07-21] MEDS: METOPROLOL TARTRATE 25 MG TAB PO SCH ×2 (08:29→20:23)
[2020-07-21] MEDS: guaiFENesin 600 MG TABCR PO SCH ×2 (08:29→20:22)
[2020-07-21] MEDS: buPROPion XL 150 MG TABCR PO SCH (08:30)
[2020-07-21] MEDS: DOXYCYCLINE HYCLATE 100 MG CAP PO SCH ×2 (08:30→20:22)
[2020-07-21] MEDS: LIDOCAINE 5% 1 PATCH TD SCH (08:30)
[2020-07-21] MEDS: DULoxetine HCL 30 MG CAP PO SCH (08:30)
[2020-07-21] MEDS: DULoxetine HCL 60 MG CAP PO SCH (08:30)
[2020-07-21] MEDS: DOCUSATE SODIUM 100 MG CAP PO SCH ×2 (08:30→20:22)
[2020-07-21] MEDS: INSULIN ASPART 100 UNITS/ML 3 ML PEN SC SCH ×4 (08:34→20:20)
[2020-07-21] MEDS: INSULIN GLARGINE SOLOSTAR 100 UNITS/ML 3 ML PEN SC SCH ×2 (08:34→20:24)
[2020-07-21] MEDS: ALUMINUM/MAGNESIUM/SIMETH (MAALOX MAX) 30 ML UDC PO PRN (10:02)
[2020-07-21] MEDS: FUROSEMIDE 20 MG TAB PO SCH (10:03)
[2020-07-21] MEDS: traMADol HCL 50 MG TABLET PO PRN (10:05)
[2020-07-21] MEDS ORDERED: HYDROCODONE/ACETAMOPHEN 5/325MG TAB PO ONE (12:08)
[2020-07-21] MEDS ORDERED: ALBUT/IPRATROP 3MG/0.5MG NEB 3 ML VIAL NEB PRN (14:14)
--- NOTE | 2020-07-21 17:15 | Hospitalist Progress Note ---
Date of Service July 21, 2020 Assessment & Plan (1) Dizziness: Dizziness Likely Multifactorial: Infection, Medications, Low BP Head CT: No acute intracranial abnormality. Extensive white matter hypodensities statistically favor chronic microvascular ischemic disease. Normal Ammonia levels Chronic hypercarbia Received IV Fluids BP better Resolved Possible Sepsis Sources: UTI, Atypical Pneumonia, R/O lyme disease Chest CT:Mild groundglass opacity with interstitial thickening within the lungs. This may reflect mild pulmonary edema, infectious etiology or air-trapping. No consolidation identified. Moderate cardiomegaly. Blood Culture:No growth to date Urine Culture: Klebsiella Normal Lactate Continue Doxycycline Cefepime Day #2>> Transition to Ceftriaxone Acute on chronic respiratory failure with hypoxia Chronic oxygen dependency--2 L at bedtime H/O Nocturnal Hypoxia Influenza, COVID screen:Negative Obstructive sleep apnea Could have Obesity Hypoventilation syndrome CT chest as above May need 2 step prior to discharge Wean off of oxygen during day time as able Continue CPAP at bedtime ELSIE on CKD III Monitor renal function Received IV fluids Avoid nephrotoxic agents as able Cr levels back to baseline Right sacroiliitis PT/OT Avoid narcotics as able Anxiety/mood disorder Fibromyalgia Restless leg syndrome) Continue current medications Check Vit D levells Hypothyroidism TSH normal Continue levothyroxine Chronic diastolic heart failure EF:60 to 65%, TTE 2019) Monitor volume status Resume diuretics DM II HbA1C: 7.8 Continue Novolog/Lantus Monitor BGs H/O PE, DVT H/O HIT S/P IVC filter Hypokalemia Hypomagnesemia Replete electrolytes as needed DVT Px: SCDs RE H/O HIT Code Status Full code Disposition PT/OT prior to discharge Admission and Anticipated Discharge Date Admission Date: July 19, 2020 Subjective Patient is seen in examined at bedside Reports anxiety and back pain this morning Offers no other complaints Denies chest pain, dyspnea, dizziness, nausea Review of Systems Review of Systems: All systems reviewed & are unremarkable except as noted in HPI & below Physical Exam Physical Exam: Physical Exam: Vitals signs as noted above General Appearance:Morbidly Obese, no apparent distress Head: normocephalic, Atraumatic Eyes: normal inspection, EOMI Neck: supple, Trachea midline Respiratory/Chest: Normal breath sounds, CTA Cardiovascular: S1, S2, No murmur Abdomen/GI:Soft, Mild tender, Bowel sounds present Extremities/Musculoskelatal:normal inspection, 1+ B/L LE edema Neurologic/Psych:AAOX3, grossly no focal neurological deficits Skin: normal color, warm Results & Data Results & Data ([facility]) Vital Signs (Past 12 Hours) Vital Signs Temp Pulse Pulse Resp BP BP Pulse Ox 07/21/20 16:00 80 07/21/20 15:01 36.6 C 85 18 117/73 91 07/21/20 11:19 36.4 C L 74 18 150/66 H 90 07/21/20 08:00 78 07/21/20 07:21 71 18 93 07/21/20 06:51 36.6 C 79 18 109/71 90 Laboratory Results Short CBC 07/21/20 Range/Units 06:38 WBC 10.47 (4.8-10.8) K/uL Hgb 13.6 (12.0-16.0) g/dL Hct 42.5 (37-47) % Plt Count 233 (130-400) K/uL BMP 07/21/20 06:38 Sodium 137 Potassium 4.1 Chloride 104 Carbon Dioxide 28 BUN 37 H Creatinine 1.82 H Glucose 152 H Calcium 9.1
[2020-07-21] MEDS: NORTRIPTYLINE HCL 25 MG CAP PO SCH (20:22)
[2020-07-21] MEDS: traZODone HCL 50 MG TAB PO SCH (20:22)
[2020-07-21] MEDS: PANTOprazole 40 MG TAB PO SCH (20:22)
[2020-07-21] MEDS: rOPINIRole HCL 1 MG TABLET PO PRN (20:47)
[2020-07-22 03:39] LABS: 18KDIGG Band NON-REACTIVE; 23KDIGG Band REACTIVE; 23KDIGM Band NON-REACTIVE; 28KDIGG Band NON-REACTIVE; 30KDIGG Band NON-REACTIVE; 39KDIGG Band NON-REACTIVE; 39KDIGM Band REACTIVE; 41KDIGG Band REACTIVE; 41KDIGM Band REACTIVE; 45KDIGG Band NON-REACTIVE; 58KDIGG Band NON-REACTIVE; 66KDIGG Band NON-REACTIVE; 93KDIGG Band REACTIVE; Lyme Antibodies, WB IgG NEGATIVE (NEGATIVE); Lyme Antibodies, WB IgM POSITIVE (NEGATIVE)
[2020-07-22] MEDS: LEVOTHYROXINE SODIUM 25 MCG TABLET PO SCH (05:44)
[2020-07-22] MEDS: LEVOTHYROXINE SODIUM 200 MCG TABLET PO SCH (05:44)
[2020-07-22] MEDS ORDERED: cefTRIAXone SODIUM 2,000 MG in DEXTROSE 5% 50 ML IV SCH (06:00)
[2020-07-22 08:05] LABS: BUN Creatinine Ratio 22.8 (10-20); Creatinine Clr Calc Pharmacy 50.4 ml/min; Est GFR (African American) 37.4; Est GFR (Non-African American) 32.2; Potassium 3.7 mmol/L (3.5-5.1)
[2020-07-22] MEDS: DOCUSATE SODIUM 100 MG CAP PO SCH (08:53)
[2020-07-22] MEDS: GABAPENTIN 300 MG CAP PO SCH ×2 (08:53→12:21)
[2020-07-22] MEDS: DOXYCYCLINE HYCLATE 100 MG CAP PO SCH (08:53)
[2020-07-22] MEDS: guaiFENesin 600 MG TABCR PO SCH (08:54)
[2020-07-22] MEDS: METOPROLOL TARTRATE 25 MG TAB PO SCH (08:54)
[2020-07-22] MEDS: DULoxetine HCL 30 MG CAP PO SCH (08:54)
[2020-07-22] MEDS: DULoxetine HCL 60 MG CAP PO SCH (08:54)
[2020-07-22] MEDS: LIDOCAINE 5% 1 PATCH TD SCH (08:54)
[2020-07-22] MEDS: FUROSEMIDE 20 MG TAB PO SCH (08:54)
[2020-07-22] MEDS: buPROPion XL 150 MG TABCR PO SCH (08:54)
[2020-07-22] MEDS: INSULIN ASPART 100 UNITS/ML 3 ML PEN SC SCH ×2 (08:55→12:22)
[2020-07-22] MEDS: INSULIN GLARGINE SOLOSTAR 100 UNITS/ML 3 ML PEN SC SCH (08:55)
[2020-07-22] MEDS: clonazePAM 0.5 MG TAB PO SCH (08:59)
[2020-07-22] MEDS ORDERED: CHOLECALCIFEROL 1,000 UNITS 25 MCG TAB PO SCH (09:45)
--- NOTE | 2020-07-22 14:24 | Hospitalist Progress Note ---
Date of Service July 22, 2020 Assessment & Plan (1) Dizziness: Dizziness Likely Multifactorial: Infection, Medications, Low BP Head CT: No acute intracranial abnormality. Extensive white matter hypodensities statistically favor chronic microvascular ischemic disease. Normal Ammonia levels Chronic hypercarbia Received IV Fluids BP stable Resolved Possible Sepsis Sources: UTI, Atypical Pneumonia, R/O lyme disease Chest CT:Mild groundglass opacity with interstitial thickening within the lungs. This may reflect mild pulmonary edema, infectious etiology or air-trapping. No consolidation identified. Moderate cardiomegaly. Blood Culture:No growth to date Urine Culture: Klebsiella Normal Lactate Continue Doxycycline Cefepime Day #2>> Transition to Ceftriaxone Day#2 Acute on chronic respiratory failure with hypoxia Chronic oxygen dependency--2 L at bedtime H/O Nocturnal Hypoxia Influenza, COVID screen:Negative Obstructive sleep apnea Could have Obesity Hypoventilation syndrome CT chest as above Continue CPAP at bedtime Saturating well on room air ELSIE on CKD III Monitor renal function Received IV fluids Avoid nephrotoxic agents as able Cr levels back to baseline Right sacroiliitis PT/OT Avoid narcotics as able Anxiety/mood disorder Fibromyalgia Restless leg syndrome) Continue current medications Vitamin D deficiency Started on vitamin D supplements Hypothyroidism TSH normal Continue levothyroxine Chronic diastolic heart failure EF:60 to 65%, TTE 2019) Monitor volume status Resume diuretics DM II HbA1C: 7.8 Continue Novolog/Lantus Monitor BGs H/O PE, DVT H/O HIT S/P IVC filter Hypokalemia Hypomagnesemia Replete electrolytes as needed DVT Px: SCDs RE H/O HIT Code Status Full code Disposition Plan to discharge home today Admission and Anticipated Discharge Date Admission Date: July 19, 2020 Subjective Patient is seen in examined at bedside No new complaints States feeling better today Chronic back pain Denies chest pain, dyspnea, dizziness, nausea, abd pain Review of Systems Review of Systems: All systems reviewed & are unremarkable except as noted in HPI & below Physical Exam Physical Exam: Physical Exam: Vitals signs as noted above General Appearance:Morbidly Obese, no apparent distress Head: normocephalic, Atraumatic Eyes: normal inspection, EOMI Neck: supple, Trachea midline Respiratory/Chest: Normal breath sounds, CTA Cardiovascular: S1, S2, No murmur Abdomen/GI:Soft, Mild tender, Bowel sounds present Extremities/Musculoskelatal:normal inspection, 1+ B/L LE edema Neurologic/Psych:AAOX3, grossly no focal neurological deficits Skin: normal color, warm Results & Data Results & Data ([facility]) Vital Signs (Past 12 Hours) Vital Signs Temp Pulse Pulse Resp BP Pulse Ox 07/22/20 11:18 36.7 C 83 18 114/75 93 07/22/20 08:00 72 07/22/20 07:45 36.3 C L 72 18 131/67 92 07/22/20 03:45 76 07/22/20 02:58 36.9 C 75 19 110/62 93 Laboratory Results [facility] 07/22/20 07:00 Sodium 137 Potassium 3.7 Chloride 102 Carbon Dioxide 31 BUN 38 H Creatinine 1.65 H Glucose 142 H Calcium 9.0
--- NOTE | 2020-07-22 14:39 | Discharge Summary ---
Date of Service July 22, 2020 Admission HPI Per Admitting Provider History obtained from patient and records. Medical history significant for chronic diastolic heart failure (60 to 65%, TTE 2019), hypertension, hyperlipidemia, DM2 insulin requiring, CRI (baseline creatinine 1.9), history PE DVT status post IVC filter placement secondary to heparin-induced thrombocytopenia, ELISSA on CPAP, past tobacco abuse, fibromyalgia, restless leg syndrome. Last confinement April 2019 for generalized body aches, ARF. Patient seen at [facility] [place] [facility] 3 days ago for right sacroiliitis. Patient started on new Vicodin prescription as needed for pain. Since starting Vicodin prescription, patient noted sleepiness. fair appetite, achy right abdominal pain without change in bowel habits. No actual dysuria symptoms. Dry cough symptoms noted about 2 days ago which patient attributed to allergies Patient was watching television last night when she started feeling dizzy and short of breath. No chest pain. No known recent COVID-19 contacts. At the ER, patient received Ceftriaxone and Doxycycline for possible pneumonia CT chest. O2 sats upon arrival at the ER 80s on room air. SBP at the ER at one point noted to be in the 90s. 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 Admission Exam Per Admitting Provider Physical Exam Physical Exam: GENERAL: Comfortable, episodic lethargy, morbidly obese, no respiratory distress SKIN: Normal color, warm HEENT: [place] palpebral conjunctivae, no ptosis, dry buccal mucosa, nasal cannula in place NECK : Supple, short neck, no tenderness CHEST : Decreased breath sounds , no tenderness HEART : RRR, no obvious murmurs ABDOMEN: Some distention, minimal right lower quadrant tenderness EXTREMITIES : Minimal LE swelling, no LE tenderness, no other conspicuous deformities noted NEUROLOGIC : Coherent, episodic lethargy, no facial asymmetry, no other gross focality Principal Diagnosis Dizziness Urinary tract infection Atypical pneumonia Lyme's disease Acute on chronic respiratory failure with hypoxia Acute kidney injury Hypokalemia Hypomagnesemia Discharge Data Allergies Allergy/AdvReac Type Severity Reaction Status Date / Time morphine Allergy Severe VIOLENT Verified 07/19/20 02:43 REACTION-"ALMOST " SWELLING tetanus toxoid, adsorbed Allergy Intermediate PASSED OUT Verified 07/19/20 02:43 AND GOT SICK WHEN A CHILD acetaminophen [From Vicodin] AdvReac Intermediate sleepiness Verified 07/19/20 04:03 codeine AdvReac Intermediate Hallucinati Verified 07/19/20 02:43 ons empagliflozin AdvReac Intermediate YEAST Verified 07/19/20 02:43 [From Jardiance] INFECTIONS heparin AdvReac Intermediate HIT; FLUID Verified 07/19/20 02:43 IN LUNGS hydrocodone [From Vicodin] AdvReac Intermediate sleepiness Verified 07/19/20 04:03 Consultations 07/19/20 02:54 ED Decision to Admit Stat Procedures Performed Chest CT: Mild groundglass opacity with interstitial thickening within the lungs. This may reflect mild pulmonary edema, infectious etiology or air-trapping. No consolidation identified. Moderate cardiomegaly. CT ABD: 1. No acute process within the abdomen or pelvis on unenhanced exam. Normal appendix. No urinary calculi. 2. Multiple bowel containing ventral hernias. No bowel obstruction. No definite bowel wall thickening. A few fluid-filled small bowel loops which are likely within normal limits. 3. Stable mild splenomegaly. Head CT: 1. No acute intracranial abnormality. 2. Extensive white matter hypodensities statistically favor chronic microvascular ischemic disease. Ordered Studies 07/19/20 00:12 CT chest wo con Stat CT head/brain wo con Stat 07/19/20 03:57 CT abd pelvis wo con Urgent Hospital Course (1) Dizziness: Dizziness Likely Multifactorial: Infection, Medications, Low BP Head CT: No acute intracranial abnormality. Extensive white matter hypodensities statistically favor chronic microvascular ischemic disease. Normal Ammonia levels Chronic hypercarbia Received IV Fluids BP stable Resolved Possible Sepsis Sources: UTI, Atypical Pneumonia, R/O lyme disease Chest CT:Mild groundglass opacity with interstitial thickening within the lungs. This may reflect mild pulmonary edema, infectious etiology or air-trapping. No consolidation identified. Moderate cardiomegaly. Blood Culture:No growth to date Urine Culture: Klebsiella Normal Lactate Continue Doxycycline Cefepime Day #2>> Transition to Ceftriaxone Day#2 Acute on chronic respiratory failure with hypoxia Chronic oxygen dependency--2 L at bedtime H/O Nocturnal Hypoxia Influenza, COVID screen:Negative Obstructive sleep apnea Could have Obesity Hypoventilation syndrome CT chest as above Continue CPAP at bedtime Saturating well on room air ELSIE on CKD III Monitor renal function Received IV fluids Avoid nephrotoxic agents as able Cr levels back to baseline Right sacroiliitis PT/OT Avoid narcotics as able Anxiety/mood disorder Fibromyalgia Restless leg syndrome) Continue current medications Vitamin D deficiency Started on vitamin D supplements Hypothyroidism TSH normal Continue levothyroxine Chronic diastolic heart failure EF:60 to 65%, TTE 2019) Monitor volume status Resume diuretics DM II HbA1C: 7.8 Continue Novolog/Lantus Monitor BGs H/O PE, DVT H/O HIT S/P IVC filter Hypokalemia Hypomagnesemia Replete electrolytes as needed DVT Px: SCDs RE H/O HIT Code Status Full code Disposition Plan to discharge home today Total Time Total Time Spent Total Time Spent (In Minutes): 42 minutes Discharge Plan Discharge Items Patient Disposition: Home - Self-Care Reason For Visit: RESP FAILURE Discharge Diagnosis: Dizziness Urinary tract infection Atypical pneumonia Lyme's disease Acute on chronic respiratory failure with hypoxia Acute kidney injury Hypokalemia Hypomagnesemia Activity: Per Instructions section Exercise/Sports: Gradually increase as tolerated Non-emergency contact: Primary Care Provider Call non-emergency contact if: you have any medication questions, your symptoms worsen, your pain is not controlled, your pain is worsening, your pain is unusual for you and you have a fever Follow-up/Referrals: Kevin Whiteside DO [Primary Care Provider] - (Date & Time 07/28/2020 2:00 PM Provider Kevin Whiteside DO Department Family [facility] ) Diet: Carb Consistent or DM2 and Heart Healthy Addtl Attending Provider Instructions: Follow up with your primary care physician Dr.Trevor Whiteside on 07/28/2020 2:00 PM Complete the antibiotic course as prescribed Your blood cultures are pending at the time of discharge follow-up with your raheem clark for results. Seek immediate medical attention if your symptoms reoccur or worsen Pending Studies at Discharge: Yes Studies:: Blood culture Stand-Alone Forms: My [facility] [place], Smoking Cessation Medications and DC Order Prescriptions: New doxycycline hyclate 100 mg Capsule 100 mg PO BID Qty: 22 RF: 0 cholecalciferol (vitamin D3) 25 mcg (1,000 unit) Capsule 1,000 unit PO QAM Qty: 30 RF: 1 cefuroxime axetil 500 mg tablet 500 mg PO BID Qty: 6 RF: 0 Continued clonazepam 0.5 mg Tablet 0.5 mg PO BID RF: 0 levothyroxine 25 mcg Tablet 25 mcg PO QAM RF: 0 levothyroxine 200 mcg Tablet 200 mcg PO QAM RF: 0 metoprolol tartrate 25 mg Tablet 12.5 mg PO BID RF: 0 omeprazole 20 mg Capsule,Delayed Release(Dr/Ec) 20 mg PO HS RF: 0 gabapentin 300 mg Capsule 300 mg PO TID RF: 0 furosemide [Lasix] 40 mg tablet 60 mg PO DAILY RF: 0 trazodone 50 mg tablet 50 mg PO HS RF: 0 magnesium oxide 400 mg (241.3 mg magnesium) Tablet 400 mg PO DAILY RF: 0 insulin aspart U-100 [Novolog U-100 Insulin aspart] 100 unit/mL solution 0 unit subcut ACHS RF: 0 colchicine 0.6 mg Tablet 0.3 mg PO DAILY PRN (Reason: GOUT) RF: 0 nortriptyline [Pamelor] 50 mg Capsule 50 mg PO HS RF: 0 duloxetine 30 mg Capsule,Delayed Release(Dr/Ec) 30 mg PO DAILY RF: 0 ropinirole [Requip XL] 2 mg Tablet Extended Release 24 Hr 2 mg PO HS PRN (Reason: as directed) RF: 0 cyclobenzaprine 10 mg Tablet 10 mg PO HS PRN (Reason: Muscle Spasm) RF: 0 duloxetine 60 mg capsule,delayed release(DR/EC) 60 mg PO QAM RF: 0 acetaminophen [Tylenol Extra Strength] 500 mg Tablet 1,000 mg PO Q6H PRN (Reason: Pain) RF: 0 Trulicity 1.5 mg/0.5 mL pen injector 1.5 mg SUBCUT WK RF: 0 potassium chloride 10 mEq tablet,ER particles/crystals 10 meq PO Q OTHER DAY RF: 0 dicyclomine 20 mg tablet 20 mg PO TID PRN (Reason: abdominal pain) Qty: 20 RF: 0 tramadol 50 mg tablet 50 mg PO DIRECTED PRN (Reason: Pain) RF: 0 bupropion HCl 150 mg tablet extended release 24 hr 150 mg PO DAILY RF: 0 Discontinued hydrocodone-acetaminophen 10-325 mg tablet 1 tab PO DIRECTED PRN (Reason: Pain) RF: 0 Discharge Orders: Discharge Order (Routine); Ordered 07/22/20 Ordered By: Pablo Loya/Other Patient Handouts: Managing Type 2 Diabetes Admission Data Admit Date/Time: 07/19/20 04:12 Attending Provider: Pablo Borden Admit Provider: Moncho Laurent Primary Care Provider: Kevin Whiteside Other Providers: Moncho Laurent Other Interventions: Discharge Summary Assessment (RN) Last Done: 07/22/20 15:16
[2020-07-23 09:02] LABS: Codeine Urine NEGATIVE ng/mL (<50); Hydrocodone Urine 416 ng/mL (<50); Hydromor Urine NEGATIVE ng/mL (<50); MDA negative; MDEA negative; MDMA (Ecstasy) Urine, Confirm negative; Morphine Urine NEGATIVE ng/mL (<50); Norhydrocodone Conf Ur 120 ng/mL (<50); Noroxycodone Urine NEGATIVE ng/mL (<50); Oxycodone Urine NEGATIVE ng/mL (<50); Oxymorph Urine NEGATIVE ng/mL (<50)
== END 2020-07-22 15:56 | disposition home or self-care (01) | DRG 871 ==
LOC: ED 23:50 → 2N 07-19 04:12

== ENCOUNTER 2020-11-24 08:36 | Inpatient (IN) ==
--- NOTE | 2020-11-24 09:26 | Emergency Department Note ---
History of Present Illness General Chief complaint: Fall Time Seen by Provider: 11/24/20 08:59 Source: patient Mode of arrival: EMS Limitations: no limitations History of Present Illness Maximum Pain Intensity: 9 This patient is a 65-year-old female who presents to the emergency department for evaluation of a fall. Patient states that she was walking to her car and next thing she knew, she was on the ground with her legs under the car. She states she is unsure how she fell but believes she must have passed out. She states this happened to her previously a few weeks ago. She saw her primary care provider and states that she was told she had "a UTI and a touch of pneumonia." She was started on Bactrim and has been taking this as prescribed. Patient reports pain all over after the fall. She reports primarily pain in the head, chin, left forearm, low back and left knee. Patient denies any chest pain or shortness of breath. She did not feel dizzy prior to the fall. She is a diabetic and states that she checked her blood sugar and it was normal. Home Medications Medication Instructions Recorded Confirmed Type clonazepam 0.5 mg PO BID 06/09/18 11/24/20 History levothyroxine 25 mcg PO QAM 06/09/18 11/24/20 History levothyroxine 200 mcg PO QAM 06/09/18 11/24/20 History metoprolol tartrate 12.5 mg PO BID 06/09/18 11/24/20 History omeprazole 20 mg PO HS 06/09/18 11/24/20 History cyclobenzaprine 10 mg PO HS PRN 12/08/18 11/24/20 History duloxetine 60 mg PO QAM 12/23/18 11/24/20 History gabapentin 300 mg PO TID 05/09/19 11/24/20 History Trulicity 1.5 mg SUBCUT WK 11/30/19 11/24/20 History acetaminophen [Tylenol Extra 1,000 mg PO Q6H PRN 11/30/19 11/24/20 History Strength] colchicine 0.3 mg PO DAILY 01/25/20 11/24/20 History duloxetine 30 mg PO DAILY 01/25/20 11/24/20 History furosemide [Lasix] 40 mg PO BID 01/25/20 11/24/20 History insulin aspart U-100 [Novolog 0 unit SUBCUT ACHS 01/25/20 11/24/20 History U-100 Insulin aspart] magnesium oxide 400 mg PO DAILY 01/25/20 11/24/20 History nortriptyline [Pamelor] 50 mg PO HS 01/25/20 11/24/20 History ropinirole [Requip XL] 2 mg PO HS 01/25/20 11/24/20 History trazodone 50 mg PO HS 01/25/20 11/24/20 History potassium chloride 10 meq PO Q OTHER DAY 03/10/20 11/24/20 History dicyclomine 20 mg PO TID PRN #20 tab 03/13/20 11/24/20 Rx bupropion HCl 150 mg PO DAILY 07/19/20 11/24/20 History tramadol 50 mg PO Q8H PRN 07/19/20 11/24/20 History cholecalciferol (vitamin D3) 1,000 unit PO QAM #30 cap 07/22/20 11/24/20 Rx docusate sodium [Colace] 100 mg PO BID #60 cap 10/24/20 11/24/20 Rx insulin degludec [Tresiba 55 unit SUBCUT HS 11/24/20 11/24/20 History FlexTouch U-100] Allergies Allergy/AdvReac Type Severity Reaction Status Date / Time morphine Allergy Severe VIOLENT Verified 11/24/20 09:22 REACTION-"ALMOST " SWELLING tetanus toxoid, adsorbed Allergy Intermediate PASSED OUT Verified 11/24/20 09:22 AND GOT SICK WHEN A CHILD acetaminophen [From Vicodin] AdvReac Intermediate sleepiness Verified 11/24/20 09:22 codeine AdvReac Intermediate Hallucinati Verified 11/24/20 09:22 ons empagliflozin AdvReac Intermediate YEAST Verified 11/24/20 09:22 [From Jardiance] INFECTIONS heparin AdvReac Intermediate HIT; FLUID Verified 11/24/20 09:22 IN LUNGS hydrocodone [From Vicodin] AdvReac Intermediate sleepiness Verified 11/24/20 09:22 Past Med/Surg History Medical History (Updated 11/24/20 @ 16:43 by Zoë Horowitz PA-C) CKD (chronic kidney disease), stage III Depression with anxiety Diabetes Diabetes mellitus, type II Fibromyalgia GERD (gastroesophageal reflux disease) History of DVT (deep vein thrombosis) History of pulmonary embolism s/p zoraida filter HIT (heparin-induced thrombocytopenia) HLD (hyperlipidemia) HTN (hypertension) Hypothyroidism Morbid obesity ELISSA on CPAP Presence of IVC filter RLS (restless legs syndrome) Sepsis Surgical History History of cholecystectomy History of colon resection secondary to R colon perforation, resected treated with colostomy and eventual reversal in 2008, Dr. Lerma History of thyroidectomy, total History of total right knee replacement History of tracheostomy 2010, secondary to acute resp failure secondary to pneumonia, [place] [facility] [place] History Father , age 74 Lung cancer Mother , age 45 Cirrhosis Social History Smoking Status: Never smoker Cigarettes Per Day: 15 pack year hx; Second Hand Exposure: No; Do You Dip or Chew Tobacco: No; Hx Alcohol Use: Yes Alcohol type: beer Hx Substance Use: No Preferred Language: Welsh Communication Ability: Effective Sheep Sticker Required: No Beliefs That Will Affect Care: None marital status: Single Current Living Situation: Alone How many Children do You have: 0 Other Information That Helps Us Care for You: No Feels Safe at Home: Yes Safety Concerns: Feels Safe At This Time Assistive Devices: Cane and Glasses Review of Systems A total of 10 systems reviewed and were otherwise negative Physical Exam Vital Signs Vital Signs - 24 hr 11/24/20 08:46 11/24/20 10:25 11/24/20 12:05 Temperature 36.8 C Temperature Source Oral Pulse Rate 99 H Pulse Rate [Finger] 94 H 91 H Pulse Rhythm [Finger] Regular Pulse Strength [Finger] Normal Respiratory Rate 20 18 18 Respiratory Effort / Characteristics Non-Labored Spontaneous Respiratory Depth Normal Respiratory Pattern Regular Blood Pressure 120/77 Blood Pressure [Right Arm] 92/45 L 100/70 Blood Pressure Mean 91 Blood Pressure Mean [Right Arm] 60 80 Blood Pressure Position [Right Arm] Sitting Pulse Oximetry 94 93 100 Oxygen Delivery Method Room Air Room Air Sepsis Recent Fever Within 48 Hours No Sepsis New/Unexplained Change in Mental Status N/A Sepsis Action Taken by Nursing No Action Required VITALS: Vitals are noted on the nurse's note and reviewed by myself. GENERAL: This is a 65-year-old obese female in no acute distress. SKIN: Small superficial abrasion noted to the chin. HEAD: Normocephalic atraumatic. EARS: External auditory canals clear, tympanic membranes pearly thomas without erythema or effusion bilaterally. No hemotympanum. EYES: Pupils equal round and reactive to light and accommodation. Extraocular movements intact. MOUTH: Mucous membranes moist. NECK: Supple without nuchal rigidity. Cervical spine is nontender. HEART: Regular rate and rhythm without murmurs gallops or rubs. LUNGS: Clear to auscultation bilaterally without wheezes, rales or rhonchi. ABDOMEN: Positive bowel sounds x 4. Soft, nontender to palpation. MUSCULOSKELETAL: There are no obvious deformities. There is tenderness to the lumbar spine, left forearm and left knee. Full range of motion throughout. NEURO: Patient was alert and oriented to person place and time. Distal sensation intact throughout. Course Consultations Consultation #1: TATIANA Gomez [facility] hospitalist Administered Medications Bupropion HCl (Bupropion Xl 150 Mg Tabcr) 150 mg PO DAILY [facility] Stop: 12/24/20 14:59 Last Admin: 11/24/20 15:54 Dose: Not Given Documented by: [id number] Colchicine (Colchicine 0.6 Mg Tab) 0.3 mg PO DAILY ROBERT Stop: 12/24/20 14:59 Last Admin: 11/24/20 15:52 Dose: 0.3 mg Documented by: [id number] Duloxetine HCl (Duloxetine Hcl 30 Mg Cap) 30 mg PO DAILY [facility] Stop: 12/24/20 14:59 Last Admin: 11/24/20 15:53 Dose: 30 mg Documented by: [id number] Duloxetine HCl (Duloxetine Hcl 60 Mg Cap) 60 mg PO QAM ROBERT Stop: 12/24/20 14:59 Last Admin: 11/24/20 15:53 Dose: 60 mg Documented by: [id number] Tramadol HCl (Tramadol Hcl 50 Mg Tablet) 50 mg PO Q8H PRN PRN Reason: Pain Stop: 12/24/20 14:19 Last Admin: 11/24/20 16:20 Dose: 50 mg Documented by: [id number] Discontinued Medications Fentanyl Citrate (Fentanyl Citrate 100 Mcg/2 Ml Vial) 50 mcg IV NOW STA Stop: 11/24/20 10:36 Last Admin: 11/24/20 10:43 Dose: 50 mcg Documented by: [id number] Sodium Chloride (Nss 1000ml) 500 mls @ 999 mls/hr IV .Q31M ONE Stop: 11/24/20 12:28 Last Infusion: 11/24/20 12:41 Dose: 0 mls/hr Documented by: [id number] Admin: 11/24/20 12:01 Dose: 999 mls/hr Documented by: [id number] Potassium Chloride (Potassium Chloride Crtab 20 Meq Tabcr) 40 meq PO ONE ONE Stop: 11/24/20 14:46 Last Admin: 11/24/20 15:52 Dose: 40 meq Documented by: [id number] Medical Decision Making Differential Diagnosis Vasovagal event, dehydration, infection, hypoglycemia, electrolyte abnormalities, cardiac sources, intracerebral event, pulmonary embolism, seizure, toxicologic, neurologic, as well as other pathologies. Home Medications Current Medication List: was personally reviewed by me Laboratory Data Attestation: I reviewed the patient's lab results. Result diagrams: 11/24/20 10:20 11/24/20 10:20 Lab Results 11/24/20 11/24/20 11/24/20 Range/Units 10:20 10:20 11:56 WBC 10.65 (4.8-10.8) K/uL RBC 4.94 (4.2-5.4) M/uL Hgb 15.1 (12.0-16.0) g/dL Hct 47.1 H (37-47) % MCV 95.3 (80-100) fL MCH 30.6 (25-34) pg MCHC 32.1 (32-36) g/dL RDW Std Deviation 49.8 H (36.4-46.3) fL RDW Coeff of Adolfo 14.3 (11.5-14.5) % Plt Count 282 (130-400) K/uL MPV 10.0 (7.4-10.4) fL Immature Gran % (Auto) 0.5 % Neut % (Auto) 63.3 % Lymph % (Auto) 26.1 % Green % (Auto) 6.9 % Eos % (Auto) 2.7 % Baso % (Auto) 0.5 % Neut # (Auto) 6.75 H (1.4-6.5) K/uL Lymph # (Auto) 2.78 (1.2-3.4) K/uL Green # (Auto) 0.73 H (0.11-0.59) K/uL Eos # (Auto) 0.29 (0-0.5) K/uL Baso # (Auto) 0.05 (0-0.2) K/uL Immature Gran # (Auto) 0.05 H (0.00-0.02) K/uL Sodium 140 (136-145) mmol/L Potassium 3.3 L (3.5-5.1) mmol/L Chloride 99 (98-107) mmol/L Carbon Dioxide 33 H (21-32) mmol/L Anion Gap 8.0 (3-11) BUN 33 H (7-18) mg/dl Creatinine 2.00 H (0.6-1.2) mg/dl Est Cr Clr Drug Dosing 43.1 ml/min Est GFR ( Amer) 29.6 Est GFR (Non-Af Amer) 25.6 BUN/Creatinine Ratio 16.7 (10-20) Glucose 183 H (70-99) mg/dl Calcium 10.0 (8.5-10.1) mg/dl Total Bilirubin 0.3 (0.2-1) mg/dl AST 20 (15-37) U/L ALT 24 (12-78) U/L Alkaline Phosphatase 93 (45-117) U/L Troponin I < 0.015 (0-0.045) ng/ml Total Protein 8.0 (6.4-8.2) gm/dl Albumin 3.4 (3.4-5.0) gm/dl Globulin 4.6 H (2.5-4.0) gm/dl Albumin/Globulin Ratio 0.7 L (0.9-2) Urine Color Yellow Urine Appearance Clear (Clear) Urine pH 6.5 (4.5-7.5) Ur Specific [place] 1.018 (1.000-1.030) Urine Protein Negative (Negative) Urine Glucose (UA) 1+ H (Negative) Urine Ketones Negative (Negative) Urine Blood Negative (Negative) Urine Nitrite Negative (Negative) Urine Bilirubin Negative (Negative) Urine Urobilinogen Negative (Negative) Ur Leukocyte Esterase 1+ H (Negative) Urine WBC (Auto) 5-10 H (0-5) /hpf Urine RBC (Auto) 0-4 (0-4) /hpf U Hyaline Cast (Auto) 1-5 (0-5) /lpf U Epithel Cells (Auto) 20-30 H (0-5) /lpf Urine Bacteria (Auto) Negative (Negative) COVID-19 Eval Order SARS-CoV-2, RNA, NAAT (NEGATIVE) 11/24/20 11/24/20 Range/Units 12:05 12:05 WBC (4.8-10.8) K/uL RBC (4.2-5.4) M/uL Hgb (12.0-16.0) g/dL Hct (37-47) % MCV (80-100) fL MCH (25-34) pg MCHC (32-36) g/dL RDW Std Deviation (36.4-46.3) fL RDW Coeff of Adolfo (11.5-14.5) % Plt Count (130-400) K/uL MPV (7.4-10.4) fL Immature Gran % (Auto) % Neut % (Auto) % Lymph % (Auto) % Green % (Auto) % Eos % (Auto) % Baso % (Auto) % Neut # (Auto) (1.4-6.5) K/uL Lymph # (Auto) (1.2-3.4) K/uL Green # (Auto) (0.11-0.59) K/uL Eos # (Auto) (0-0.5) K/uL Baso # (Auto) (0-0.2) K/uL Immature Gran # (Auto) (0.00-0.02) K/uL Sodium (136-145) mmol/L Potassium (3.5-5.1) mmol/L Chloride (98-107) mmol/L Carbon Dioxide (21-32) mmol/L Anion Gap (3-11) BUN (7-18) mg/dl Creatinine (0.6-1.2) mg/dl Est Cr Clr Drug Dosing ml/min Est GFR ( Amer) Est GFR (Non-Af Amer) BUN/Creatinine Ratio (10-20) Glucose (70-99) mg/dl Calcium (8.5-10.1) mg/dl Total Bilirubin (0.2-1) mg/dl AST (15-37) U/L ALT (12-78) U/L Alkaline Phosphatase (45-117) U/L Troponin I (0-0.045) ng/ml Total Protein (6.4-8.2) gm/dl Albumin (3.4-5.0) gm/dl Globulin (2.5-4.0) gm/dl Albumin/Globulin Ratio (0.9-2) Urine Color Urine Appearance (Clear) Urine pH (4.5-7.5) Ur Specific [place] (1.000-1.030) Urine Protein (Negative) Urine Glucose (UA) (Negative) Urine Ketones (Negative) Urine Blood (Negative) Urine Nitrite (Negative) Urine Bilirubin (Negative) Urine Urobilinogen (Negative) Ur Leukocyte Esterase (Negative) Urine WBC (Auto) (0-5) /hpf Urine RBC (Auto) (0-4) /hpf U Hyaline Cast (Auto) (0-5) /lpf U Epithel Cells (Auto) (0-5) /lpf Urine Bacteria (Auto) (Negative) COVID-19 Eval Order Covid19 IDNow atMNDC SARS-CoV-2, RNA, NAAT NEGATIVE (NEGATIVE) Imaging Data Attestation: I personally reviewed and interpreted this imaging study as follows: Radiologist's Impression: CT head/brain wo con FINDINGS: No acute intracranial hemorrhage, midline shift, intracranial mass, hydrocephalus, territorial ischemia or abnormal extra-axial collection. Extensive white matter hypodensities redemonstrated suggestive of chronic microv ascular ischemic disease. Cerebral vascular calcifications. The calvarium is intact. The paranasal sinuses, mastoid air cells, and middle ear cavities are clear. IMPRESSION: No acute intracranial abnormality. MAXILLOFACIAL CT WITHOUT CONTRAST FINDINGS: No acute facial fracture is identified. The globes are intact. There is no retrobulbar hematoma. Alignment of the temporomandibular joints is anatomic. The orbital floors are intact. There are no suspicious osseous lesions. Head CT will be reported separately. No fracture within the skull base or visualized portions of the cervical spine is noted. Multiple teeth are absent. IMPRESSION: No acute facial fracture. XR chest 1V not portable FINDINGS: Surgical clips within the neck are noted. No pneumothorax or pleural effusion is noted. Patient is rotated. No lobar consolidation is noted. Interstitial thickening has slightly increased. This is age indeterminate. Cardiomegaly is noted. IMPRESSION: 1. Rotated study. No pneumothorax. 2. Slight increase in interstitial thickening which may be technical. XR lumbar spine min 4V routine FINDINGS: IVC filter noted at the level of L3-L4. Cholecystectomy. Ossified plaque the abdominal aorta. Moderate fecal retention. Scattered punctate radiodensities overlie the upper abdomen, possibly external to the patient. There is advanced multilevel spondylitic spurring and facet arthrosis. Moderate to severe intervertebral disc space narrowing at L1-L2 and L3-L4. There is no acute fracture or subluxation. IMPRESSION: No acute fracture or subluxation. XR knee LT 3V FINDINGS: Alignment of the left knee is anatomic. There is no acute fracture. Note is made of moderate to severe osteoarthritis within the medial patellofemoral compartments of the left knee. There is a small joint effusion. There is no osseous lesion. IMPRESSION: 1. No acute fracture. Small left knee joint effusion. 2. Moderate to severe left knee osteoarthritis, most pronounced within the medial and patellofemoral compartments. XR forearm LT 2V CLINICAL HISTORY: left arm pain, fall COMPARISON: None FINDINGS: There is evidence for a left elbow joint effusion with slight prominence of the anterior fat pad and visualization of the posterior fat pad. Note is made of an acute nondisplaced fracture of the left radial head with extension to the radiocapitellar articulation. There is no acute fracture of the left ulna. IMPRESSION: Acute nondisplaced left radial head fracture with associated left elbow joint effusion. ECG Data Attestation: I personally reviewed and interpreted this ECG as follows: Indication: + syncope Rate (beats per minute): 92 Rhythm: + normal sinus ECG Intervals/blocks: + Normal QRS ECG ST segments: + Normal ST segments Change: no significant change Head Trauma GCS Score: 15 MDM Narrative Continuous fibrous wallboard inspector: Order was placed for continuous fibrous wallboard inspector. Patient was placed on the fibrous wallboard inspector. Patient was noted to be in normal sinus rhythm at an initial rate of 99 bpm. The patient is a 65-year-old female who presents today complaining of a fall. Patient is unsure how she fell and believes she may have had a syncopal episode. Labs revealed no leukocytosis or anemia. Patient's creatinine is slightly elevated from her baseline at 2. She was given a 500 mL bolus. Multiple images were performed and show no acute intracranial findings, patient does have a left radial head fracture and was placed in an arm sling. Given the history of 2 recent syncopal episodes, I did feel she would benefit from inpatient admission. The case was discussed with the hospitalist, who agreed to evaluate the patient for further care. Impression & Plan Syncope and collapse, Fracture of head of radius Discharge Plan Visit Data Chief Complaint: Fall ED Provider: Zachariah Gage ED Midlevel Provider: Zoë Horowitz Discharge Problem: Syncope and collapse, Fracture of head of radius Patient Disposition: Admitted As Inpatient Discharge Instructions Interventions: ED Discharge Assessment Last Done: 11/24/20 13:51 Discharge Problem: Fracture of head of radius Qualifiers: Encounter type: initial encounter Fracture type: closed Fracture alignment: nondisplaced Laterality: left Qualified Code(s): S52.125A - Nondisplaced fracture of head of left radius, initial encounter for closed fracture
--- NOTE | 2020-11-24 09:46 | CT Scan Report ---
CT head/brain wo con CLINICAL HISTORY: 65 years-old Female with fall, head injury. Acute head injury status post fall TECHNIQUE: Multiple axial CT images of the head were obtained without contrast. A dose lowering tech nique was utilized adhering to the principles of ALARA. COMPARISON: Head CT 07/19/2020 FINDINGS: No acute intracranial hemorrhage, midline shift, intracranial mass, hydrocephalus, territorial ischem ia or abnormal extra-axial collection. Extensive white matter hypodensities redemonstrated suggestive of chronic microvascular ischemic disease. Cerebral vascular calcifications. The calvarium is intact. The paranasal sinuses, mastoid air cells, and middle ear cavities are clear . IMPRESSION: No acute intracranial abnormality. ACT 112: Negative or not required by law. The above report was generated using voice recognition software. It may contain grammatical, syntax o r spelling errors. Electronically signed by: Ernesto Gilliland M.D. 11/24/2020 9:45 AM
--- NOTE | 2020-11-24 09:54 | CT Scan Report ---
MAXILLOFACIAL CT WITHOUT CONTRAST CLINICAL HISTORY: fall, head/facial injury COMPARISON STUDY: Head CT July 19, 2020. TECHNIQUE: A maxillofacial CT was performed without IV contrast. Coronal and sagittal reformats were viewed. Automated exposure control was utilized for the study. A dose lowering technique was utiliz ed adhering to the principles of ALARA. FINDINGS: No acute facial fracture is identified. The globes are intact. There is no retrobulbar sandhya gilberto. Alignment of the temporomandibular joints is anatomic. The orbital floors are intact. There are no suspicious osseous lesions. Head CT will be reported separately. No fracture within the skull bas e or visualized portions of the cervical spine is noted. Multiple teeth are absent. IMPRESSION: No acute facial fracture. ACT 112: Negative or not required by law. Electronically signed by: David Lugo M.D. 11/24/2020 9:53 AM
--- NOTE | 2020-11-24 10:08 | XRay Report ---
XR knee LT 3V CLINICAL HISTORY: Left knee pain following fall. COMPARISON: Left knee radiographs November 27, 2019. FINDINGS: Alignment of the left knee is anatomic. There is no acute fracture. Note is made of modera te to severe osteoarthritis within the medial patellofemoral compartments of the left knee. There is a small joint effusion. There is no osseous lesion. IMPRESSION: 1. No acute fracture. Small left knee joint effusion. 2. Moderate to severe left knee osteoarthritis, most pronounced within the medial and patellofemoral compartments. ACT 112: Negative or not required by law. Electronically signed by: David Lugo M.D. 11/24/2020 10:07 AM
--- NOTE | 2020-11-24 10:10 | XRay Report ---
XR forearm LT 2V CLINICAL HISTORY: left arm pain, fall COMPARISON: None FINDINGS: There is evidence for a left elbow joint effusion with slight prominence of the anterior f at pad and visualization of the posterior fat pad. Note is made of an acute nondisplaced fracture of the left radial head with extension to the radiocapitellar articulation. There is no acute fracture o f the left ulna. IMPRESSION: Acute nondisplaced left radial head fracture with associated left elbow joint effusion. ACT 112: Negative or not required by law. Electronically signed by: David Lugo M.D. 11/24/2020 10:09 AM
--- NOTE | 2020-11-24 10:12 | XRay Report ---
XR chest 1V not portable CLINICAL HISTORY: fall, recent pneumonia? COMPARISON STUDY: Chest CT July 19, 2020. FINDINGS: Surgical clips within the neck are noted. No pneumothorax or pleural effusion is noted. Pat ient is rotated. No lobar consolidation is noted. Interstitial thickening has slightly increased. Thi s is age indeterminate. Cardiomegaly is noted. IMPRESSION: 1. Rotated study. No pneumothorax. 2. Slight increase in interstitial thickening which may be technical. ACT 112: Negative or not required by law. Electronically signed by: David Lugo M.D. 11/24/2020 10:11 AM
--- NOTE | 2020-11-24 10:13 | XRay Report ---
XR lumbar spine min 4V routine HISTORY: 65 years-old Female low back pain, fall acute low back pain status post fall COMPARISON: CT lumbar spine 10/24/2020 TECHNIQUE: 5 views of the lumbar spine FINDINGS: IVC filter noted at the level of L3-L4. Cholecystectomy. Ossified plaque the abdominal aorta. Moderat e fecal retention. Scattered punctate radiodensities overlie the upper abdomen, possibly external to the patient. There is advanced multilevel spondylitic spurring and facet arthrosis. Moderate to severe interverteb ral disc space narrowing at L1-L2 and L3-L4. There is no acute fracture or subluxation. IMPRESSION: No acute fracture or subluxation. ACT 112: Negative or not required by law. The above report was generated using voice recognition software. It may contain grammatical, syntax o r spelling errors. Electronically signed by: Ernesto Gilliland M.D. 11/24/2020 10:12 AM
[2020-11-24] MEDS ORDERED: fentaNYL citrate 100 MCG/2 ML VIAL IV STA (10:35)
[2020-11-24 10:39] LABS: Basophils # (auto) 0.05 K/uL (0-0.2); Basophils % (auto) 0.5 %; Eosinophils # (auto) 0.29 K/uL (0-0.5); Eosinophils % (auto) 2.7 %; Hematocrit (blood only) 47.1 % (37-47); Hemoglobin 15.1 g/dL (12.0-16.0); Immature Granulocytes # (auto) 0.05 K/uL (0.00-0.02); Immature Granulocytes % (auto) 0.5 %; Lymphocytes # (auto) 2.78 K/uL (1.2-3.4); Lymphocytes % (auto) 26.1 %; Mean Corpuscular Hemoglobin 30.6 pg (25-34); Mean Corpuscular Hgb Conc 32.1 g/dL (32-36); Mean Corpuscular Volume 95.3 fL (80-100); Monocytes # (auto) 0.73 K/uL (0.11-0.59); Monocytes % (auto) 6.9 %; Neutrophils # (auto) 6.75 K/uL (1.4-6.5); Neutrophils % (auto) 63.3 %; Platelet Count 282 K/uL (130-400); RDW Coefficient of Variation 14.3 % (11.5-14.5); RDW Standard Deviation 49.8 fL (36.4-46.3); Red Blood Count 4.94 M/uL (4.2-5.4); White Blood Count 10.65 K/uL (4.8-10.8)
--- NOTE | 2020-11-24 10:46 | Emergency Department Note ---
ED Visit Note Patient was seen by our PA/DESK ATTENDANT. I was involved in the patient's care and did evaluate the patient myself. I was involved in the care throughout the ER stay. Patient presents after a fall/syncopal event. She does have a left radial head fracture. Her blood pressure is borderline low. Her creatinine is somewhat elevated indicating some dehydration. A hospital stay was felt warranted given the history and findings. She was given a 500 cc saline bolus. Her left arm was placed in a sling. Medicine was consulted. .
[2020-11-24 10:55] LABS: Alanine Aminotransferase 24 U/L (12-78); Albumin Level 3.4 gm/dl (3.4-5.0); Aspartate Aminotransferase 20 U/L (15-37); BUN Creatinine Ratio 16.7 (10-20); Blood Urea Nitrogen 33 mg/dl (7-18); Carbon Dioxide 33 mmol/L (21-32); Chloride 99 mmol/L (98-107); Creatinine Clr Calc Pharmacy 43.1 ml/min; Est GFR (African American) 29.6; Est GFR (Non-African American) 25.6; Glucose 183 mg/dl (70-99); Potassium 3.3 mmol/L (3.5-5.1); Sodium 140 mmol/L (136-145)
[2020-11-24 11:00] LABS: Albumin Globulin Ratio 0.7 (0.9-2); Alkaline Phosphatase 93 U/L (45-117); Bilirubin,Total 0.3 mg/dl (0.2-1); Globulin 4.6 gm/dl (2.5-4.0); Troponin I < 0.015 ng/ml (0-0.045)
[2020-11-24] MEDS ORDERED: SODIUM CHLORIDE 0.9% 1000ML 500 ML IV ONE (11:58)
[2020-11-24 12:14] LABS: Appearance Urine Clear (Clear); Bacteria Urine Automated Negative (Negative); Bilirubin Urine Negative (Negative); Blood Urine Negative (Negative); Color Urine Yellow; Epithelial Cell Urine Auto 20-30 /lpf (0-5); Glucose Urine UA 1+ (Negative); Ketones Urine Negative (Negative); Leukocyte Esterase Urine 1+ (Negative); Nitrite Urine Negative (Negative); Protein Urine Negative (Negative); RBC Urine Automated 0-4 /hpf (0-4); Specific Gravity Urine 1.018 (1.000-1.030); Urobilinogen Urine Negative (Negative); pH Urine 6.5 (4.5-7.5)
--- NOTE | 2020-11-24 12:58 | History & Physical Report ---
Date of Service November 24, 2020 Assessment & Plan (1) Fall: (2) Syncope: (3) Left radial head fracture: This is a 65yo F with a PMH of chronic diastolic heart failure (60 to 65%, TTE 2019), hypertension, hyperlipidemia, DM2 insulin requiring, CKD III-IV (baseline creatinine 1.9), history PE DVT s/p IVC filter placement secondary to heparin-induced thrombocytopenia, ELISSA on CPAP, past tobacco abuse, chronic respiratory failure requiring 2L NC O2 with exertion, fibromyalgia, restless leg syndrome with controlled substance agreement who presents after fall at home earlier today. -Unwitnessed syncopal episode prior to arrival with fall, sustained acute nondisplaced left radial head fracture with associated left elbow joint effusion -Polypharmacy likely contributing to fall. Orthostatics ordered, monitor on telemetry -Reduce Nortriptyline dose to 25mg. Reduce Requip to 1 mg HS. Hold Flexeril. Consider further adjustment to psychotropic meds -Arm placed in sling in ED -Routine ortho consult -Fall precautions, PT/OT evaluation, discharge planning -Continue home tramadol, Tylenol (4) Diabetes mellitus, type II: Hold home agents -Glycemic consult placed -BSG AC HS (5) CHF (congestive heart failure): Appears on dry side. Hold AM dose of lasix, obtain orthostatics -Monitor volume status closely (6) Fibromyalgia: Continue Tramadol PRN, gabapentin, Cymbalta (7) CKD (chronic kidney disease), stage III: H/o CKD III/IV - baseline Cr ~1.9 Cr 2 today Avoid nephrotoxic agents when able Daily BMP (8) HTN (hypertension): Hypotensive initially - improved with fluids Hold lasix for now, continue Lopressor with hold parameters (9) Depression with anxiety: Continue Cymbalta. Considering holding Wellbutrin since recently started and can lower seizure threshold, also on Tramadol (10) History of pulmonary embolism: S/p IVC filter placement (11) RLS (restless legs syndrome): Reduce Requip dose to 1mg HS (12) ELISSA on CPAP: (13) Obesity hypoventilation syndrome: CPAP HS DVT Ppx: SCDs, IVC filter in place Code status: FULL PCP: Stevo Dispo: [facility] Discharge planning ordered. Patient seen in collaboration with Dr. De Leon. Please see addendum. History of Present Illness Chief Complaint: fall, arm pain Primary Care Provider: Kevin Whiteside DO This is a 65yo F with a PMH of chronic diastolic heart failure (60 to 65%, TTE 2019), hypertension, hyperlipidemia, DM2 insulin requiring, CKD III-IV (baseline creatinine 1.9), history PE DVT s/p IVC filter placement secondary to heparin- induced thrombocytopenia, ELISSA on CPAP, past tobacco abuse, chronic respiratory failure requiring 2L NC O2 with exertion, fibromyalgia, restless leg syndrome with controlled substance agreement who presents after fall at home earlier today. Was walking to her car this morning and doesn't remember falling but came to lying on her side under her vehicle. Denies any chest pain, SOB or lightheadedness preceding fall. Endorses pain all over, specifically L arm and back. Takes gabapentin and tramadol for history of fibromyalgia. Did not take any of AM medications today. Does take multiple medications at night that cause drowsiness and admits to feeling continued drowsiness from them some mornings. Was seen in ED at the end of September following a similar fall / syncopal episode. Lives alone and ambulates with cane / walker. Has not taken any AM medications prior to arrival. Is participating in outpatient PT twice a week right now which she feels helps with her back pain and mobility. Completed 5 day course of Bactrim yesterday for UTI. Allergies Allergy/AdvReac Type Severity Reaction Status Date / Time morphine Allergy Severe VIOLENT Verified 11/24/20 09:22 REACTION-"ALMOST " SWELLING tetanus toxoid, adsorbed Allergy Intermediate PASSED OUT Verified 11/24/20 09:22 AND GOT SICK WHEN A CHILD acetaminophen [From Vicodin] AdvReac Intermediate sleepiness Verified 11/24/20 09:22 codeine AdvReac Intermediate Hallucinati Verified 11/24/20 09:22 ons empagliflozin AdvReac Intermediate YEAST Verified 11/24/20 09:22 [From Jardiance] INFECTIONS heparin AdvReac Intermediate HIT; FLUID Verified 11/24/20 09:22 IN LUNGS hydrocodone [From Vicodin] AdvReac Intermediate sleepiness Verified 11/24/20 09:22 Home Medications Medication Instructions Recorded Confirmed Type clonazepam 0.5 mg PO BID 06/09/18 11/24/20 History levothyroxine 25 mcg PO QAM 06/09/18 11/24/20 History levothyroxine 200 mcg PO QAM 06/09/18 11/24/20 History metoprolol tartrate 12.5 mg PO BID 06/09/18 11/24/20 History omeprazole 20 mg PO HS 06/09/18 11/24/20 History cyclobenzaprine 10 mg PO HS PRN 12/08/18 11/24/20 History duloxetine 60 mg PO QAM 12/23/18 11/24/20 History gabapentin 300 mg PO TID 05/09/19 11/24/20 History Trulicity 1.5 mg SUBCUT WK 11/30/19 11/24/20 History acetaminophen [Tylenol Extra 1,000 mg PO Q6H PRN 11/30/19 11/24/20 History Strength] colchicine 0.3 mg PO DAILY 01/25/20 11/24/20 History duloxetine 30 mg PO DAILY 01/25/20 11/24/20 History furosemide [Lasix] 40 mg PO BID 01/25/20 11/24/20 History insulin aspart U-100 [Novolog 0 unit SUBCUT ACHS 01/25/20 11/24/20 History U-100 Insulin aspart] magnesium oxide 400 mg PO DAILY 01/25/20 11/24/20 History trazodone 50 mg PO HS 01/25/20 11/24/20 History potassium chloride 10 meq PO Q OTHER DAY 03/10/20 11/24/20 History dicyclomine 20 mg PO TID PRN #20 tab 03/13/20 11/24/20 Rx tramadol 50 mg PO Q8H PRN 07/19/20 11/24/20 History cholecalciferol (vitamin D3) 1,000 unit PO QAM #30 cap 07/22/20 11/24/20 Rx docusate sodium [Colace] 100 mg PO BID #60 cap 10/24/20 11/24/20 Rx Tresiba FlexTouch U-100 55 unit SUBCUT HS 11/24/20 11/24/20 History lidocaine 1 patch TRANSDERMAL HS #15 ea 11/26/20 Rx nortriptyline [Pamelor] 25 mg PO HS #0 cap 11/26/20 11/24/20 Rx ropinirole [Requip XL] 1 mg PO HS #0 tab 11/26/20 11/24/20 Rx Past Med/Surg History Medical History CKD (chronic kidney disease), stage III Depression with anxiety Diabetes Diabetes mellitus, type II Fibromyalgia GERD (gastroesophageal reflux disease) History of DVT (deep vein thrombosis) History of pulmonary embolism s/p zoraida filter HIT (heparin-induced thrombocytopenia) HLD (hyperlipidemia) HTN (hypertension) Hypothyroidism Morbid obesity ELISSA on CPAP Presence of IVC filter RLS (restless legs syndrome) Sepsis Surgical History History of cholecystectomy History of colon resection secondary to R colon perforation, resected treated with colostomy and eventual reversal in 2008, Dr. Lerma History of thyroidectomy, total History of total right knee replacement History of tracheostomy 2010, secondary to acute resp failure secondary to pneumonia, transferred to [facility] Family History Father , age 74 Lung cancer Mother , age 45 Cirrhosis Social History Smoking Status: Never smoker Cigarettes Per Day: 15 pack year hx; Second Hand Exposure: No; Do You Dip or Chew Tobacco: No; Hx Alcohol Use: Yes Alcohol type: beer Hx Substance Use: No Preferred Language: Azerbaijani Communication Ability: Effective Tea And Spice Supervisor Required: No Beliefs That Will Affect Care: None marital status: Single Current Living Situation: Alone How many Children do You have: 0 Other Information That Helps Us Care for You: No Feels Safe at Home: Yes Safety Concerns: Feels Safe At This Time Assistive Devices: Brace/Splint/Immobilizer and Glasses Review of Systems Review of Systems: At least ten systems reviewed and negative except as noted in the HPI. Physical Exam Physical Exam: General Appearance: WD/WN, vitals as above, NAD, sitting up in bed, pleasant, conversing easily, obese Head: normocephalic, atraumatic Eyes: normal inspection, PERRL, conjunctivae normal, anicteric sclerae ENT: external ear and nose normal, oropharynx normal Neck: normal visual inspection, trachea midline, no thyromegaly Respiratory: normal respiratory effort, lungs clear to auscultation, no wheeze, rales, rhonchi. No accessory muscle use Cardiovascular: regular rate, rhythm, no murmur, normal peripheral pulses, trace BLE edema. Vessels: no JVD Chest: normal inspection of chest Abdomen/GI: normal bowel sounds, soft, nontender, no hepatosplenomegaly Extremities/Musculoskeletal: + Left arm in sling. No cyanosis or clubbing, extremities motor strength 5/5 Neurologic: PERRL, EOMI, accommodation nl, no face palsy, no dysarthria, CN's II-XI intact bilaterally and moves all extremities Psychiatric: A+Ox3, euthymic affect Skin: no rashes, normal color, warm/dry Results & Data Results & Data ([facility]) Vital Signs (Past 12 Hours) Vital Signs Temp Pulse Pulse Resp BP BP Pulse Ox 11/24/20 12:05 91 H 18 100/70 100 11/24/20 10:25 94 H 18 92/45 L 93 11/24/20 08:46 36.8 C 99 H 20 120/77 94 Laboratory Results Short CBC 11/24/20 11/24/20 Range/Units 10:20 10:20 WBC 10.65 (4.8-10.8) K/uL Hgb 15.1 (12.0-16.0) g/dL Hct 47.1 H (37-47) % Plt Count 282 (130-400) K/uL Est GFR (Non-Af Amer) 25.6 BMP 11/24/20 10:20 Sodium 140 Potassium 3.3 L Chloride 99 Carbon Dioxide 33 H BUN 33 H Creatinine 2.00 H Glucose 183 H Calcium 10.0 Cardiac Enzymes 11/24/20 Range/Units 10:20 Troponin I < 0.015 (0-0.045) ng/ml Liver Function 11/24/20 Range/Units 10:20 Total Bilirubin 0.3 (0.2-1) mg/dl AST 20 (15-37) U/L ALT 24 (12-78) U/L Alkaline Phosphatase 93 (45-117) U/L Albumin 3.4 (3.4-5.0) gm/dl Urine 11/24/20 Range/Units 11:56 Urine Color Yellow Urine Appearance Clear (Clear) Urine pH 6.5 (4.5-7.5) Ur Specific [place] 1.018 (1.000-1.030) Urine Protein Negative (Negative) Urine Glucose (UA) 1+ H (Negative) Diagnostic Findings Head CT: IMPRESSION: No acute intracranial abnormality Face CT: IMPRESSION: No acute facial fracture. CXR: IMPRESSION: 1. Rotated study. No pneumothorax. 2. Slight increase in interstitial thickening which may be technical. L Forearm XR: IMPRESSION: Acute nondisplaced left radial head fracture with associated left elbow joint effusion. Knee XR: IMPRESSION: 1. No acute fracture. Small left knee joint effusion. 2. Moderate to severe left knee osteoarthritis, most pronounced within the medial and patellofemoral compartments. Lumbar spine XR: IMPRESSION: No acute fracture or subluxation. Code Status & VTE Plan VTE Prophylaxis Plan VTE Prophylaxis will be ordered: Yes Supervising Physician Co-Signing Physician Notes Pt was seen and examined. Agreed with Varsha CLEARY exam, assessment and plan. 65yo F with a PMH of chronic diastolic heart failure (60 to 65%, TTE 2019), hypertension, hyperlipidemia, DM2 insulin requiring, CKD III-IV (baseline creatinine 1.9), history PE DVT s/p IVC filter placement secondary to heparin- induced thrombocytopenia, ELISSA on CPAP, past tobacco abuse, chronic respiratory failure requiring 2L NC O2 with exertion, fibromyalgia, restless leg syndrome with controlled substance agreement who presents after to the ER after a fall. Pt said today while walking to her car that she fell and rolled under the car side. She said that she does not remember what happened and did not know for how long that she was on the ground. She said that when she woke up that she found herself lying on her side. She said that she has chronic pain, but she is having more pain in her left arm. Pt is taking alot of medication that can cause HOT SAW HELPER side effect. She said that since starting the Wellbutrin about 1 month that she has been having episode of falling. She said that she just completed a 5 day course of Bactrim for UTI yesterday. Denies any chest pain, palpitation, loss of bladder or bowel movement, dizziness, sob and fever. CT head showed no acute intracranial abnormality. Xray of the forearm showed acute nondisplaced left radial head fracture with associated left elbow joint effusion. Fall might be related to polypharmacy. Continue pain control. Will hold wellbutrin and flexeril for now. Will check for orthostatic BP. Will reduce Nortriptyline dose to 25mg. Reduce Requip to 1 mg HS. Continue sling in the L arm that was placed in the ER. Will consult ortho. Will get an echo to t/o any cardiac etiology. Will monitor for sign of seizure. Fall precaution. PT/OT eval. Continue monitor closely. MD Haley (1) CHF (congestive heart failure) Heart failure chronicity: acute on chronic Heart failure type: unspecified Qualified Code(s): I50.9 - Heart failure, unspecified
[2020-11-24] MEDS ORDERED: ACETAMINOPHEN HOME PACK 500 MG TABLET PO PRN (14:20)
--- NOTE | 2020-11-24 14:24 | Electrocardiogram Report ---
Test Reason : Blood Pressure : / mmHG Vent. Rate : 092 BPM Atrial Rate : 092 BPM P-R Int : 198 ms QRS Dur : 086 ms QT Int : 366 ms P-R-T Axes : 084 023 049 degrees QTc Int : 452 ms Poor data quality, interpretation may be adversely affected Normal sinus rhythm Low voltage QRS Borderline ECG When compared with ECG of 18-JUL-2020 23:57, No significant change was found Confirmed by Bright David ([id number]) on 11/24/2020 2:23:29 PM Referred By: REFERRED SELF Confirmed By:Bright David
[2020-11-24] MEDS ORDERED: ACETAMINOPHEN 325 MG TAB PO PRN (14:27)
[2020-11-24] MEDS ORDERED: ONDANSETRON INJ 2 MG/ML 2 ML VIAL IV PRN (14:27)
[2020-11-24] MEDS ORDERED: POLYETHYLENE (MIRALAX) 17 GM PACK PO PRN (14:27)
[2020-11-24] MEDS ORDERED: POTASSIUM CHLORIDE CRTAB 20 MEQ TABCR PO ONE (14:45)
[2020-11-24] MEDS ORDERED: buPROPion XL 150 MG TABCR PO SCH (15:00)
[2020-11-24] MEDS ORDERED: PHARMACY GLYCEMIC MGMT CONSULT PRN (15:34)
[2020-11-24] MEDS ORDERED: DEXTROSE 50% 50 ML SYRINGE IV PRN (15:45)
[2020-11-24] MEDS ORDERED: GLUCOSE 10 TABS/TUBE PO PRN (15:45)
[2020-11-24] MEDS ORDERED: CARBOHYDRATES FOR HYPOGLYCEMIA PO PRN (15:45)
[2020-11-24] MEDS ORDERED: GLUCAGON FOR INJ 1 MG VIAL IM PRN (15:45)
[2020-11-24] MEDS ORDERED: GLUCOSE 40% GEL 15 GM TUBE PO PRN (15:45)
[2020-11-24] MEDS: COLCHICINE 0.6 MG TAB PO SCH (15:52)
[2020-11-24] MEDS: DULoxetine HCL 60 MG CAP PO SCH (15:53)
[2020-11-24] MEDS: DULoxetine HCL 30 MG CAP PO SCH (15:53)
--- NOTE | 2020-11-24 15:55 | Pharmacy Report ---
Pharmacy Glycemic Short Note 2 - Date of Service November 24, 2020 - Glycemic Short BSG Results (Last 24 hours): 11/24/20 11/24/20 10:20 14:21 Glucose 183 H POC Glucose 147 H OUTPATIENT ANTIDIABETIC REGIMEN: * Tresiba 55 units SC HS * Novolog ACHS (up to 200 units) - per sliding scale/meal coverage * Patient unable to provide details on scale * Trulicity 1.5 mg SC weekly on Fridays * HbA1c: ordered for tomorrow 11/25/20 ASSESSMENT: * DP is a 65 year old female who presents to ED after unwitnessed fall and subsequent left radial head fracture * Previously managed by pharmacy glycemic service in 2019 * BSGs so far today of 183 and 147 mg/dL * Discussed insulin regimen with patient - patient is unable to provide details on Novolog other than that she can take up to 200 units daily * Will dose Novolog aggressively at this time based on 200 unit cap PLAN FOR INPATIENT GLYCEMIC CONTROL: * Hold outpatient oral diabetes medications * Basal insulin * Lantus 45-55 units SQ HS (see EHR for details) * Bolus insulin * NovoLog per scale ACHS or Q6hrs while NPO * Goal Range: Low 110 mg/dL - High 140 mg/dL * Correction Factor: 10 mg/dL/unit * Nutritional / Prandial insulin per carb ratio of 1 unit per 3 grams CHO consumed PLAN FOR DISCHARGE: * tbd
[2020-11-24] MEDS: traMADol HCL 50 MG TABLET PO PRN (16:20)
[2020-11-24] MEDS ORDERED: SODIUM CHLORIDE 0.9% 1000ML 1,000 ML IV SCH (17:15)
[2020-11-24] MEDS: INSULIN ASPART 100 UNITS/ML 3 ML PEN SC SCH ×2 (17:34→20:46)
[2020-11-24] MEDS: DOCUSATE SODIUM 100 MG CAP PO SCH (20:08)
[2020-11-24] MEDS: ACETAMINOPHEN 500 MG TAB PO SCH (20:08)
[2020-11-24] MEDS: GABAPENTIN 300 MG CAP PO SCH (20:09)
[2020-11-24] MEDS: traZODone HCL 50 MG TAB PO SCH (20:09)
[2020-11-24] MEDS: PANTOprazole 40 MG TAB PO SCH (20:10)
[2020-11-24] MEDS: rOPINIRole HCL 1 MG TABLET PO SCH (20:10)
[2020-11-24] MEDS: NORTRIPTYLINE HCL 25 MG CAP PO SCH (20:10)
[2020-11-24] MEDS: LIDOCAINE 5% 1 PATCH TD SCH (20:12)
[2020-11-24] MEDS: clonazePAM 0.5 MG TAB PO SCH (20:12)
[2020-11-24] MEDS: INSULIN GLARGINE SOLOSTAR 100 UNITS/ML 3 ML PEN SC SCH (20:45)
[2020-11-24] MEDS ORDERED: METOPROLOL TARTRATE 25 MG TAB PO SCH (21:00)
[2020-11-25] MEDS: traMADol HCL 50 MG TABLET PO PRN ×3 (02:58→20:15)
[2020-11-25] MEDS: ACETAMINOPHEN 500 MG TAB PO SCH ×3 (05:51→21:32)
[2020-11-25] MEDS: LEVOTHYROXINE SODIUM 200 MCG TABLET PO SCH (05:52)
[2020-11-25] MEDS: LEVOTHYROXINE SODIUM 25 MCG TABLET PO SCH (05:52)
[2020-11-25 06:17] LABS: Hematocrit (blood only) 43.6 % (37-47); Hemoglobin 14.1 g/dL (12.0-16.0); Mean Corpuscular Hemoglobin 31.1 pg (25-34); Mean Corpuscular Hgb Conc 32.3 g/dL (32-36); Mean Platelet Volume 10.4 fL (7.4-10.4); Platelet Count 269 K/uL (130-400); RDW Coefficient of Variation 14.6 % (11.5-14.5); RDW Standard Deviation 51.1 fL (36.4-46.3); Red Blood Count 4.54 M/uL (4.2-5.4); White Blood Count 9.02 K/uL (4.8-10.8)
[2020-11-25 06:37] LABS: BUN Creatinine Ratio 15.6 (10-20); Calcium 9.8 mg/dl (8.5-10.1); Creatinine Clr Calc Pharmacy 44.9 ml/min; Est GFR (African American) 30.5; Est GFR (Non-African American) 26.3; Potassium 3.6 mmol/L (3.5-5.1)
[2020-11-25 06:47] LABS: Estimated Average Glucose 189 mg/dl; Hemoglobin A1C 8.2 % (4.5-5.6)
[2020-11-25] MEDS ORDERED: POTASSIUM CHLORIDE 10 MEQ TABCR PO SCH (09:00)
[2020-11-25] MEDS: clonazePAM 0.5 MG TAB PO SCH ×2 (09:01→20:15)
[2020-11-25] MEDS: DICYCLOMINE HCL 20 MG TAB PO PRN ×3 (09:01→21:31)
[2020-11-25] MEDS: COLCHICINE 0.6 MG TAB PO SCH (09:02)
[2020-11-25] MEDS: CHOLECALCIFEROL 1,000 UNITS 25 MCG TAB PO SCH (09:02)
[2020-11-25] MEDS: DULoxetine HCL 60 MG CAP PO SCH (09:02)
[2020-11-25] MEDS: DULoxetine HCL 30 MG CAP PO SCH (09:03)
[2020-11-25] MEDS: DOCUSATE SODIUM 100 MG CAP PO SCH ×2 (09:03→20:15)
[2020-11-25] MEDS: GABAPENTIN 300 MG CAP PO SCH ×3 (09:03→20:06)
[2020-11-25] MEDS: MAGNESIUM OXIDE 400 MG TAB PO SCH (09:03)
[2020-11-25] MEDS: INSULIN ASPART 100 UNITS/ML 3 ML PEN SC SCH ×4 (09:04→20:35)
--- NOTE | 2020-11-25 10:51 | Pharmacy Report ---
Pharmacy Glycemic Short Note 2 - Date of Service November 25, 2020 - Glycemic Short BSG Results (Last 24 hours): 11/24/20 11/24/20 11/24/20 10:20 14:21 16:34 Glucose 183 H POC Glucose 147 H 230 H 11/24/20 11/25/20 11/25/20 20:19 05:33 07:25 Glucose 144 H POC Glucose 157 H 167 H OUTPATIENT ANTIDIABETIC REGIMEN: * Tresiba 55 units SC HS * Novolog ACHS (up to 200 units) - per sliding scale/meal coverage * Patient unable to provide details on scale * Trulicity 1.5 mg SC weekly on Fridays * HbA1c: 8.2% (11/25/20) ASSESSMENT: 11/24/20: * Stephanie received her home dose of basal insulin yesterday (55 units at HS) plus 24 units of Novolog between dinner and HS. * Fasting BSG of 167 mg/dL is above goal. Lantus dose will be increased. * We currently do not have enough post prandial BSG data to determine if CF/CR of 10/3 is ideal. If lunch BSG is elevated, will consider tightening carb ratio to 2.5. 11/24/20: * DP is a 65 year old female who presents to ED after unwitnessed fall and subsequent left radial head fracture * Previously managed by pharmacy glycemic service in 2019 * BSGs so far today of 183 and 147 mg/dL * Discussed insulin regimen with patient - patient is unable to provide details on Novolog other than that she can take up to 200 units daily * Will dose Novolog aggressively at this time based on 200 unit cap PLAN FOR INPATIENT GLYCEMIC CONTROL: * Hold outpatient oral diabetes medications * Basal insulin - increase * Lantus 55-60 units SQ HS (see EHR for details) * Bolus insulin - continue * NovoLog per scale ACHS or Q6hrs while NPO * Goal Range: Low 110 mg/dL - High 140 mg/dL * Correction Factor: 10 mg/dL/unit * Nutritional / Prandial insulin per carb ratio of 1 unit per 3 grams CHO consumed PLAN FOR DISCHARGE: * A1c of 8.2% is slightly above goal * Current home regimen is heavy on bolus insulin. I suspect patient may require an increase in basal insulin. Consider 10-15 % increase in Tresiba as long as patient denies frequent AM hypoglycemia as an outpatient.
[2020-11-25] MEDS ORDERED: traMADol HCL 50 MG TABLET PO ONE (17:58)
--- NOTE | 2020-11-25 19:14 | Hospitalist Progress Note ---
Date of Service November 25, 2020 Assessment & Plan (1) Fall: (2) Syncope: (3) Left radial head fracture: Present on admission after having an unwitnessed syncopal episode/fall Possible related to medication side effect (Polypharmacy likely contributing to fall) vs orthostatic hypotension Pt said that since starting wellbutrin few weeks ago by her PCP that she has been having recurrent fall Forearm xray showed acute nondisplaced left radial head fracture with associated left elbow joint effusion. Ortho on board recommended non operative management and continue to wear sling for now in the Left arm Continue pain control Nortriptyline dose to decreased to 25mg and reduced Requip to 1 mg HS. ' Echo showed normal left ventricular wall thickness. Left ventricular wall motion is normal. Ejection fraction greater than 70. Moderate mitral annular calcification. no evidence of atrial septal defect Continue to Hold Flexeril. PT/OT eval pending fall precaution (4) Diabetes mellitus, type II: uncontrolled DM with Hba1c 8.2 continue to hold oral dm meds Pharmacy on board for glycemic management Continue Lantus and novolog sliding scale while inpatient stable (5) CHF (congestive heart failure): Will resume lasix Monitor volume status closely stable (6) Fibromyalgia: Continue Tramadol PRN, gabapentin, Cymbalta (7) CKD (chronic kidney disease), stage III: H/o CKD III/IV - baseline Cr ~1.9 Creatinine 1.9 today Avoid nephrotoxic agents when able stable (8) HTN (hypertension): Low BP on admission continue Lopressor with hold parameters Will resume lasix on admission (9) Depression with anxiety: Continue Cymbalta. Will discontinue welbutrin on discharge since pt has been having recurrent falls since starting on it few weeks ago (10) History of pulmonary embolism: S/p IVC filter placement (11) RLS (restless legs syndrome): Reduce Requip dose to 1mg HS (12) ELISSA on CPAP: (13) Obesity hypoventilation syndrome: CPAP HS DVT Ppx: SCDs, IVC filter in place due to history of HIT Code status: FULL PCP: Stevo Dispo: Discharge home tomorrow if safe to return home as per PT/OT Admission and Anticipated Discharge Date Admission Date: November 24, 2020 Subjective Pt was seen and examined for follow up of left arm pain and syncopal episode Sitting at the edge of the bed with no acute distress Pt said that she is having a lot of pain when she moves her left arm she has been requested for pain meds round the clock Pt has history of chronic pain and she said that she always has pain, but worst after the fall Denies any chest pain, palpitation, dizziness and SOB Physical Exam Physical Exam: General- No acute distress Head- atraumatic Eyes- PERRL, EOMI, ENT- oropharynx clear Neck- supple, no JVD Lungs- clear to auscultation Heart- regular rhythm; no murmur Abdomen- normal bowel sounds, soft, nontender Extremities- no calf tenderness, left upper extremity place in sling Neuro- alert, oriented x 3; PERRL, EOMI; no facial palsy; no dysarthria Skin- warm & dry Results & Data Results & Data ([facility]) Vital Signs (Past 12 Hours) Vital Signs Temp Pulse Pulse Resp BP Pulse Ox 11/25/20 15:32 103 H 11/25/20 15:20 36.7 C 103 H 22 141/92 H 92 11/25/20 11:00 36.7 C 100 H 20 97/43 L 90 11/25/20 08:00 96 H 11/25/20 07:00 36.9 C 97 H 20 126/37 L 92 (1) CHF (congestive heart failure) Heart failure chronicity: acute on chronic Heart failure type: unspecified Qualified Code(s): I50.9 - Heart failure, unspecified
--- NOTE | 2020-11-25 19:42 | Orthopedic Consultation ---
Date of Consultation November 25, 2020 Assessment & Plan (1) Fracture of head of radius: Nondisplaced left radial head fracture. Nonoperative treatment. Maintain NWB LUE at this time and sling immobilizer. Ice to affected area. Follow up in office 1-2 weeks for repeat XRs, . Thank you for the consultation. History of Present Illness Reason for Consultation: Left radial head fracture Attending Physician: Vidal De Leon MD History of Present Illness The patient is a 65 year old female with PMHx noted below who presented to [facility] secondary to a unwitnessed syncopal episode. XRs taken demonstrated a non- displaced left radial head fracture. Patient denies associated injuries or numbness and tingling to her LUE. Allergies Allergy/AdvReac Type Severity Reaction Status Date / Time morphine Allergy Severe VIOLENT Verified 11/24/20 09:22 REACTION-"ALMOST " SWELLING tetanus toxoid, adsorbed Allergy Intermediate PASSED OUT Verified 11/24/20 09:22 AND GOT SICK WHEN A CHILD acetaminophen [From Vicodin] AdvReac Intermediate sleepiness Verified 11/24/20 09:22 codeine AdvReac Intermediate Hallucinati Verified 11/24/20 09:22 ons empagliflozin AdvReac Intermediate YEAST Verified 11/24/20 09:22 [From Jardiance] INFECTIONS heparin AdvReac Intermediate HIT; FLUID Verified 11/24/20 09:22 IN LUNGS hydrocodone [From Vicodin] AdvReac Intermediate sleepiness Verified 11/24/20 09:22 Home Medications Medication Instructions Recorded Confirmed Type clonazepam 0.5 mg PO BID 06/09/18 11/24/20 History levothyroxine 25 mcg PO QAM 06/09/18 11/24/20 History levothyroxine 200 mcg PO QAM 06/09/18 11/24/20 History metoprolol tartrate 12.5 mg PO BID 06/09/18 11/24/20 History omeprazole 20 mg PO HS 06/09/18 11/24/20 History cyclobenzaprine 10 mg PO HS PRN 12/08/18 11/24/20 History duloxetine 60 mg PO QAM 12/23/18 11/24/20 History gabapentin 300 mg PO TID 05/09/19 11/24/20 History Trulicity 1.5 mg SUBCUT WK 11/30/19 11/24/20 History acetaminophen [Tylenol Extra 1,000 mg PO Q6H PRN 11/30/19 11/24/20 History Strength] colchicine 0.3 mg PO DAILY 01/25/20 11/24/20 History duloxetine 30 mg PO DAILY 01/25/20 11/24/20 History furosemide [Lasix] 40 mg PO BID 01/25/20 11/24/20 History insulin aspart U-100 [Novolog 0 unit SUBCUT ACHS 01/25/20 11/24/20 History U-100 Insulin aspart] magnesium oxide 400 mg PO DAILY 01/25/20 11/24/20 History trazodone 50 mg PO HS 01/25/20 11/24/20 History potassium chloride 10 meq PO Q OTHER DAY 03/10/20 11/24/20 History dicyclomine 20 mg PO TID PRN #20 tab 03/13/20 11/24/20 Rx tramadol 50 mg PO Q8H PRN 07/19/20 11/24/20 History cholecalciferol (vitamin D3) 1,000 unit PO QAM #30 cap 07/22/20 11/24/20 Rx docusate sodium [Colace] 100 mg PO BID #60 cap 10/24/20 11/24/20 Rx Tresiba FlexTouch U-100 55 unit SUBCUT HS 11/24/20 11/24/20 History lidocaine 1 patch TRANSDERMAL HS #15 ea 11/26/20 Rx nortriptyline [Pamelor] 25 mg PO HS #0 cap 11/26/20 11/24/20 Rx ropinirole [Requip XL] 1 mg PO HS #0 tab 11/26/20 11/24/20 Rx Patient History Medical History CKD (chronic kidney disease), stage III Depression with anxiety Diabetes Diabetes mellitus, type II Fibromyalgia GERD (gastroesophageal reflux disease) History of DVT (deep vein thrombosis) History of pulmonary embolism s/p zoraida filter HIT (heparin-induced thrombocytopenia) HLD (hyperlipidemia) HTN (hypertension) Hypothyroidism Morbid obesity ELISSA on CPAP Presence of IVC filter RLS (restless legs syndrome) Sepsis Surgical History History of cholecystectomy History of colon resection secondary to R colon perforation, resected treated with colostomy and eventual reversal in 2008, Dr. Lerma History of thyroidectomy, total History of total right knee replacement History of tracheostomy 2010, secondary to acute resp failure secondary to pneumonia, transferred to [facility] [place] Family History Father , age 74 Lung cancer Mother , age 45 Cirrhosis Social History Smoking Status: Never smoker Cigarettes Per Day: 15 pack year hx; Second Hand Exposure: No; Do You Dip or Chew Tobacco: No; Hx Alcohol Use: Yes Alcohol type: beer Hx Substance Use: No Preferred Language: Yemeni Communication Ability: Effective Lvn Required: No Beliefs That Will Affect Care: None marital status: Single Current Living Situation: Alone How many Children do You have: 0 Other Information That Helps Us Care for You: No Feels Safe at Home: Yes Safety Concerns: Feels Safe At This Time Assistive Devices: Brace/Splint/Immobilizer and Glasses Review of Systems Review of Systems: All systems reviewed & are unremarkable except as noted in HPI & below Constitutional: as per Subjective / HPI Physical Exam Physical Exam: LUE NVSI grossly, +2 radial pulse, compartments soft, +TTP left lateral elbow, skin CDI Constitutional: WD/WN, vitals as above Results & Data ([facility]) Vital Signs (Past 12 Hours) Vital Signs Temp Pulse Pulse Resp BP Pulse Ox 11/25/20 15:32 103 H 11/25/20 15:20 36.7 C 103 H 22 141/92 H 92 11/25/20 11:00 36.7 C 100 H 20 97/43 L 90 11/25/20 08:00 96 H Diagnostic Findings XR forearm LT 2V CLINICAL HISTORY: left arm pain, fall COMPARISON: None FINDINGS: There is evidence for a left elbow joint effusion with slight prominence of the anterior fat pad and visualization of the posterior fat pad. Note is made of an acute nondisplaced fracture of the left radial head with extension to the radiocapitellar articulation. There is no acute fracture of the left ulna. IMPRESSION: Acute nondisplaced left radial head fracture with associated left elbow joint effusion. (1) Fracture of head of radius Encounter type: initial encounter Fracture alignment: nondisplaced Fracture type: closed Laterality: left Qualified Code(s): S52.125A - Nondisplaced fracture of head of left radius, initial encounter for closed fracture
[2020-11-25] MEDS: PANTOprazole 40 MG TAB PO SCH (20:04)
[2020-11-25] MEDS: NORTRIPTYLINE HCL 25 MG CAP PO SCH (20:05)
[2020-11-25] MEDS: LIDOCAINE 5% 1 PATCH TD SCH (20:06)
[2020-11-25] MEDS: traZODone HCL 50 MG TAB PO SCH (20:15)
[2020-11-25] MEDS: FUROSEMIDE 40 MG TAB PO SCH (20:23)
[2020-11-25] MEDS: INSULIN GLARGINE SOLOSTAR 100 UNITS/ML 3 ML PEN SC SCH (20:34)
[2020-11-25] MEDS ORDERED: FUROSEMIDE 40 MG TAB PO SCH (21:00)
[2020-11-25] MEDS: rOPINIRole HCL 1 MG TABLET PO SCH (21:31)
[2020-11-26] MEDS: traMADol HCL 50 MG TABLET PO PRN ×2 (04:56→15:02)
[2020-11-26] MEDS: LEVOTHYROXINE SODIUM 25 MCG TABLET PO SCH (05:41)
[2020-11-26] MEDS: LEVOTHYROXINE SODIUM 200 MCG TABLET PO SCH (05:42)
[2020-11-26] MEDS: ACETAMINOPHEN 500 MG TAB PO SCH ×2 (05:42→13:22)
[2020-11-26 07:12] LABS: Hematocrit (blood only) 43.8 % (37-47); Hemoglobin 14.3 g/dL (12.0-16.0); Mean Corpuscular Hemoglobin 31.2 pg (25-34); Mean Corpuscular Hgb Conc 32.6 g/dL (32-36); Mean Corpuscular Volume 95.6 fL (80-100); Mean Platelet Volume 10.1 fL (7.4-10.4); Platelet Count 267 K/uL (130-400); RDW Coefficient of Variation 14.7 % (11.5-14.5); Red Blood Count 4.58 M/uL (4.2-5.4); White Blood Count 9.08 K/uL (4.8-10.8)
[2020-11-26] MEDS: DULoxetine HCL 60 MG CAP PO SCH (07:39)
[2020-11-26] MEDS: clonazePAM 0.5 MG TAB PO SCH (07:39)
[2020-11-26] MEDS: DULoxetine HCL 30 MG CAP PO SCH (07:39)
[2020-11-26] MEDS: GABAPENTIN 300 MG CAP PO SCH ×2 (07:40→13:22)
[2020-11-26] MEDS: FUROSEMIDE 40 MG TAB PO SCH ×2 (07:40→16:57)
[2020-11-26] MEDS: CHOLECALCIFEROL 1,000 UNITS 25 MCG TAB PO SCH (07:40)
[2020-11-26] MEDS: MAGNESIUM OXIDE 400 MG TAB PO SCH (07:40)
[2020-11-26] MEDS: COLCHICINE 0.6 MG TAB PO SCH (07:41)
[2020-11-26] MEDS: DICYCLOMINE HCL 20 MG TAB PO PRN (07:42)
[2020-11-26 07:44] LABS: BUN Creatinine Ratio 14.8 (10-20); Calcium 9.8 mg/dl (8.5-10.1); Creatinine Clr Calc Pharmacy 42.5 ml/min; Est GFR (Non-African American) 25.9; Potassium 3.7 mmol/L (3.5-5.1)
[2020-11-26] MEDS: INSULIN ASPART 100 UNITS/ML 3 ML PEN SC SCH ×3 (07:52→16:57)
[2020-11-26] MEDS: DOCUSATE SODIUM 100 MG CAP PO SCH (07:53)
--- NOTE | 2020-11-26 09:24 | Hospitalist Progress Note ---
Date of Service November 26, 2020 Assessment & Plan (1) Fall: (2) Syncope: (3) Left radial head fracture: Present on admission after having an unwitnessed syncopal episode/fall Possible related to medication side effect (Polypharmacy likely contributing to fall) vs orthostatic hypotension Orthostatic vital signs positive Pt said that since starting Wellbutrin few weeks ago by her PCP that she has been having recurrent fall Forearm xray showed acute nondisplaced left radial head fracture with associated left elbow joint effusion. Ortho on board recommended non operative management and continue to wear sling for now in the Left arm Maintain NWB LUE at this time and sling immobilizer. Ice to affected area. Follow up in office 1-2 weeks for repeat XRs, . Continue pain control Nortriptyline dose to decreased to 25mg and reduced Requip to 1 mg HS. ' Echo showed normal left ventricular wall thickness. Left ventricular wall motion is normal. Ejection fraction greater than 70. Moderate mitral annular calcification. no evidence of atrial septal defect Continue to Hold Flexeril. PT/OT obtained fall precaution (4) Diabetes mellitus, type II: uncontrolled DM with Hba1c 8.2 continue to hold oral dm meds Pharmacy on board for glycemic management Continue Lantus and novolog sliding scale while inpatient stable (5) CHF (congestive heart failure): Will resume lasix on discharge Monitor volume status closely stable (6) Fibromyalgia: Continue Tramadol PRN, gabapentin, Cymbalta (7) CKD (chronic kidney disease), stage III: H/o CKD III/IV - baseline Cr ~1.9 Creatinine 1.9 today Avoid nephrotoxic agents when able stable (8) HTN (hypertension): Low BP on admission continue Lopressor with hold parameters Will resume lasix on dc (9) Depression with anxiety: Continue Cymbalta. Will discontinue welbutrin on discharge since pt has been having recurrent falls since starting on it few weeks ago (10) History of pulmonary embolism: S/p IVC filter placement (11) RLS (restless legs syndrome): Reduce Requip dose to 1mg HS (12) ELISSA on CPAP: (13) Obesity hypoventilation syndrome: CPAP HS Morbid obesity BMI above 50 -Lifestyle change, counseling -follow up as outpt DVT Ppx: SCDs, IVC filter in place due to history of HIT Code status: FULL PCP: Dr. Whiteside Dispo: Plan to discharge to SNF Admission and Anticipated Discharge Date Admission Date: November 24, 2020 Subjective Pt was seen and examined for follow up of left arm pain and syncopal episode Sitting at the edge of the bed with no acute distress Left arm is in a sling, patient reports pain with movement Pt has history of chronic pain and she said that she always has pain, but worse after the fall Denies any chest pain, palpitation, dizziness and SOB Also denies feeling lightheaded or feeling that she would faint since she has been in hospital Telemetry reviewed-shows sinus rhythm, in the 90s to 100s Review of Systems Review of Systems: All systems reviewed & are unremarkable except as noted in HPI & below Constitutional: no fever and no chills Respiratory: no cough and no dyspnea Cardiovascular: no chest pain Gastrointestinal: no abdominal pain, no nausea and no vomiting Physical Exam Physical Exam: General-morbidly obese female, sitting up in bed, pleasant, in no acute distress Head- atraumatic Eyes- PERRL, EOMI, ENT- oropharynx clear Neck- supple, no JVD Lungs- clear to auscultation Heart- regular rhythm; no murmur Abdomen- normal bowel sounds, soft, nontender Extremities- no calf tenderness, left upper extremity placed in a sling Neuro- alert, oriented x 3; PERRL, EOMI; no facial palsy; no dysarthria Skin- warm & dry Results & Data Results & Data ([facility]) Vital Signs (Past 12 Hours) Vital Signs Temp Pulse Pulse Resp BP Pulse Ox 11/26/20 07:59 36.7 C 97 H 20 91/56 L 91 11/26/20 07:17 106 H 11/26/20 04:08 36.4 C L 96 H 20 100/66 92 11/25/20 23:21 36.9 C 99 H 20 110/68 92 11/25/20 22:20 102 H Laboratory Results 11/26/20 11/26/20 11/26/20 Range/Units 07:39 06:36 06:36 WBC 9.08 (4.8-10.8) K/uL RBC 4.58 (4.2-5.4) M/uL Hgb 14.3 (12.0-16.0) g/dL Hct 43.8 (37-47) % MCV 95.6 (80-100) fL MCH 31.2 (25-34) pg MCHC 32.6 (32-36) g/dL RDW Std Deviation 51.0 H (36.4-46.3) fL RDW Coeff of Adolfo 14.7 H (11.5-14.5) % Plt Count 267 (130-400) K/uL MPV 10.1 (7.4-10.4) fL Sodium 135 L (136-145) mmol/L Potassium 3.7 (3.5-5.1) mmol/L Chloride 101 (98-107) mmol/L Carbon Dioxide 26 (21-32) mmol/L Anion Gap 8.0 (3-11) BUN 29 H (7-18) mg/dl Creatinine 1.98 H (0.6-1.2) mg/dl Est Cr Clr Drug Dosing 42.5 ml/min Est GFR ( Amer) 30.0 Est GFR (Non-Af Amer) 25.9 BUN/Creatinine Ratio 14.8 (10-20) Glucose 157 H (70-99) mg/dl POC Glucose 155 H (70-99) mg/dl Calcium 9.8 (8.5-10.1) mg/dl 11/25/20 11/25/20 11/25/20 Range/Units 20:31 16:40 11:27 WBC (4.8-10.8) K/uL RBC (4.2-5.4) M/uL Hgb (12.0-16.0) g/dL Hct (37-47) % MCV (80-100) fL MCH (25-34) pg MCHC (32-36) g/dL RDW Std Deviation (36.4-46.3) fL RDW Coeff of Adolfo (11.5-14.5) % Plt Count (130-400) K/uL MPV (7.4-10.4) fL Sodium (136-145) mmol/L Potassium (3.5-5.1) mmol/L Chloride (98-107) mmol/L Carbon Dioxide (21-32) mmol/L Anion Gap (3-11) BUN (7-18) mg/dl Creatinine (0.6-1.2) mg/dl Est Cr Clr Drug Dosing ml/min Est GFR ( Amer) Est GFR (Non-Af Amer) BUN/Creatinine Ratio (10-20) Glucose (70-99) mg/dl POC Glucose 140 H 144 H 117 H (70-99) mg/dl Calcium (8.5-10.1) mg/dl Medications Administered Current Inpatient Medications Acetaminophen (Acetaminophen 500 Mg Tab) 1,000 mg PO Q8 ROBERT Stop: 12/24/20 20:14 Last Admin: 11/26/20 05:42 Dose: 1,000 mg Documented by: Bupropion HCl (Bupropion Xl 150 Mg Tabcr) 150 mg PO DAILY ROBERT Stop: 12/24/20 14:59 Last Admin: 11/24/20 15:54 Dose: Not Given Documented by: Clonazepam (Clonazepam 0.5 Mg Tab) 0.5 mg PO BID ROBERT Stop: 12/24/20 20:59 Last Admin: 11/26/20 07:39 Dose: 0.5 mg Documented by: Colchicine (Colchicine 0.6 Mg Tab) 0.3 mg PO DAILY ROBERT Stop: 12/24/20 14:59 Last Admin: 11/26/20 07:41 Dose: 0.3 mg Documented by: Dextrose (Dextrose 50% 50 Ml Syringe) 25 - 50 ml IV UD PRN; Protocol PRN Reason: Hypoglycemia Protocol Stop: 12/24/20 15:44 Dicyclomine HCl (Dicyclomine Hcl 20 Mg Tab) 20 mg PO TID PRN PRN Reason: abdominal pain Stop: 12/24/20 14:19 Last Admin: 11/26/20 07:42 Dose: 20 mg Documented by: Docusate Sodium (Docusate Sodium 100 Mg Cap) 100 mg PO BID ROBERT Stop: 12/24/20 20:59 Last Admin: 11/26/20 07:53 Dose: Not Given Documented by: Duloxetine HCl (Duloxetine Hcl 30 Mg Cap) 30 mg PO DAILY ROBERT Stop: 12/24/20 14:59 Last Admin: 11/26/20 07:39 Dose: 30 mg Documented by: Duloxetine HCl (Duloxetine Hcl 60 Mg Cap) 60 mg PO QAM ROBERT Stop: 12/24/20 14:59 Last Admin: 11/26/20 07:39 Dose: 60 mg Documented by: Furosemide (Furosemide 40 Mg Tab) 40 mg PO BID17 ROBERT Stop: 12/25/20 20:59 Last Admin: 11/26/20 07:40 Dose: 40 mg Documented by: Gabapentin (Gabapentin 300 Mg Cap) 300 mg PO TID [facility] Stop: 12/24/20 20:59 Last Admin: 11/26/20 07:40 Dose: 300 mg Documented by: Glucagon (Glucagon For Inj 1 Mg Vial) 1 mg IM UD PRN; Protocol PRN Reason: Hypoglycemia Protocol Stop: 12/24/20 15:44 Glucose (Glucose 40% Gel 15 Gm Tube) 15 - 30 gm PO UD PRN; Protocol PRN Reason: Hypoglycemia Protocol Stop: 12/24/20 15:44 Glucose (Glucose 10 Tabs/Tube) 4 - 8 tabs PO UD PRN; Protocol PRN Reason: Hypoglycemia Protocol Stop: 12/24/20 15:44 Insulin Aspart (Insulin Aspart 100 Units/Ml 3 Ml Pen) 0 units SC [facility] Stop: 12/24/20 16:29 Last Admin: 11/26/20 07:52 Dose: 16 units Documented by: Insulin Glargine (Insulin Glargine Solostar 100 Units/Ml 3 Ml Pen) 0 units SC [facility]; Protocol Stop: 12/24/20 20:59 Last Admin: 11/25/20 20:34 Dose: 60 units Documented by: Levothyroxine Sodium (Levothyroxine Sodium 25 Mcg Tablet) [facility]: 12/25/20 06:29 Last Admin: 11/26/20 05:41 Dose: 25 mcg Documented by: Levothyroxine Sodium (Levothyroxine Sodium 200 Mcg Tablet) [facility] Stop: 12/25/20 06:29 Last Admin: 11/26/20 05:42 Dose: 200 mcg Documented by: Lidocaine (Lidocaine 5% 1 Patch) 1 patch TD [facility] Stop: 12/24/20 20:14 Last Admin: 11/25/20 20:06 Dose: 1 patch Documented by: Magnesium Oxide (Magnesium Oxide 400 Mg Tab) 400 mg PO DAILY [facility] Stop: 12/25/20 08:59 Last Admin: 11/26/20 07:40 Dose: 400 mg Documented by: Metoprolol Tartrate (Metoprolol Tartrate 25 Mg Tab) 12.5 mg PO BID [facility] Stop: 12/24/20 20:59 Miscellaneous (Carbohydrates For Hypoglycemia ) 15 - 30 gm PO UD PRN PRN Reason: Hypoglycemia Treatment Stop: 12/24/20 15:44 Miscellaneous (Remove Lidoderm Patch) 1 ea N/[facility] Stop: 12/25/20 08:59 Last Admin: 11/26/20 07:44 Dose: 1 ea Documented by: Miscellaneous Information (Pharmacy Glycemic Mgmt Consult) 1 ea N/A UD PRN PRN Reason: Consult Stop: 12/24/20 15:33 Nortriptyline HCl (Nortriptyline Hcl 25 Mg Cap) 25 mg PO [facility] Stop: 12/24/20 20:59 Last Admin: 11/25/20 20:05 Dose: 25 mg Documented by: Ondansetron HCl (Ondansetron Inj 2 Mg/Ml 2 Ml Vial) 4 mg IV Q6H PRN PRN Reason: Nausea Stop: 12/24/20 14:26 Pantoprazole Sodium (Pantoprazole 40 Mg Tab) 40 mg PO [facility]; Protocol Stop: 12/24/20 20:59 Last Admin: 11/25/20 20:04 Dose: 40 mg Documented by: Polyethylene Glycol (Polyethylene (Miralax) 17 Gm Pack) 17 gm PO DAILY PRN PRN Reason: Constipation Stop: 12/24/20 14:26 Potassium Chloride (Potassium Chloride 10 Meq Tabcr) 10 meq PO Q2D [facility] Stop: 12/25/20 08:59 Last Admin: 11/25/20 09:02 Dose: 10 meq Documented by: Ropinirole HCl (Ropinirole Hcl 1 Mg Tablet) 1 mg PO [facility] Stop: 12/24/20 20:59 Last Admin: 11/25/20 21:31 Dose: 1 mg Documented by: Tramadol HCl (Tramadol Hcl 50 Mg Tablet) 50 mg PO Q8H PRN PRN Reason: Pain Stop: 12/24/20 14:19 Last Admin: 11/26/20 04:56 Dose: 50 mg Documented by: Trazodone HCl (Trazodone Hcl 50 Mg Tab) 50 mg PO [facility] Stop: 12/24/20 20:59 Last Admin: 11/25/20 20:15 Dose: 50 mg Documented by: Vitamin D (Cholecalciferol 1,000 Units 25 Mcg Tab) 1,000 units PO [facility] Stop: 12/25/20 08:59 Last Admin: 11/26/20 07:40 Dose: 1,000 units Documented by: (1) CHF (congestive heart failure) Heart failure chronicity: acute on chronic Heart failure type: unspecified Qualified Code(s): I50.9 - Heart failure, unspecified
--- NOTE | 2020-11-26 14:45 | Discharge Summary ---
Date of Service November 26, 2020 Admission HPI Per Admitting Provider This is a 65yo F with a PMH of chronic diastolic heart failure (60 to 65%, TTE 2019), hypertension, hyperlipidemia, DM2 insulin requiring, CKD III-IV (baseline creatinine 1.9), history PE DVT s/p IVC filter placement secondary to heparin- induced thrombocytopenia, ELISSA on CPAP, past tobacco abuse, chronic respiratory failure requiring 2L NC O2 with exertion, fibromyalgia, restless leg syndrome with controlled substance agreement who presents after fall at home earlier today. Was walking to her car this morning and doesn't remember falling but came to lying on her side under her vehicle. Denies any chest pain, SOB or lightheadedness preceding fall. Endorses pain all over, specifically L arm and back. Takes gabapentin and tramadol for history of fibromyalgia. Did not take any of AM medications today. Does take multiple medications at night that cause drowsiness and admits to feeling continued drowsiness from them some mornings. Was seen in ED at the end of September following a similar fall / syncopal episode. Lives alone and ambulates with cane / walker. Has not taken any AM medications prior to arrival. Is participating in outpatient PT twice a week right now which she feels helps with her back pain and mobility. Completed 5 day course of Bactrim yesterday for UTI. Admission Exam Per Admitting Provider General Appearance: WD/WN, vitals as above, NAD, sitting up in bed, pleasant, conversing easily, obese Head: normocephalic, atraumatic Eyes: normal inspection, PERRL, conjunctivae normal, anicteric sclerae ENT: external ear and nose normal, oropharynx normal Neck: normal visual inspection, trachea midline, no thyromegaly Respiratory: normal respiratory effort, lungs clear to auscultation, no wheeze, rales, rhonchi. No accessory muscle use Cardiovascular: regular rate, rhythm, no murmur, normal peripheral pulses, trace BLE edema. Vessels: no JVD Chest: normal inspection of chest Abdomen/GI: normal bowel sounds, soft, nontender, no hepatosplenomegaly Extremities/Musculoskeletal: + Left arm in sling. No cyanosis or clubbing, extremities motor strength 5/5 Neurologic: PERRL, EOMI, accommodation nl, no face palsy, no dysarthria, CN's II-XI intact bilaterally and moves all extremities Psychiatric: A+Ox3, euthymic affect Skin: no rashes, normal color, warm/dry Principal Diagnosis Fall/syncope likely secondary to polypharmacy, orthostatic hypotension Fracture of head of radius (Left, nondisplaced) Discharge Exam General-morbidly obese female, sitting up in bed, pleasant, in no acute distress Head- atraumatic Eyes- PERRL, EOMI, ENT- oropharynx clear Neck- supple, no JVD Lungs- clear to auscultation Heart- regular rhythm; no murmur Abdomen- normal bowel sounds, soft, nontender Extremities- no calf tenderness, left upper extremity placed in a sling Neuro- alert, oriented x 3; PERRL, EOMI; no facial palsy; no dysarthria Skin- warm & dry Discharge Data Allergies Allergy/AdvReac Type Severity Reaction Status Date / Time morphine Allergy Severe VIOLENT Verified 11/24/20 09:22 REACTION-"ALMOST " SWELLING tetanus toxoid, adsorbed Allergy Intermediate PASSED OUT Verified 11/24/20 09:22 AND GOT SICK WHEN A CHILD acetaminophen [From Vicodin] AdvReac Intermediate sleepiness Verified 11/24/20 09:22 codeine AdvReac Intermediate Hallucinati Verified 11/24/20 09:22 ons empagliflozin AdvReac Intermediate YEAST Verified 11/24/20 09:22 [From Jardiance] INFECTIONS heparin AdvReac Intermediate HIT; FLUID Verified 11/24/20 09:22 IN LUNGS hydrocodone [From Vicodin] AdvReac Intermediate sleepiness Verified 11/24/20 09:22 Consultations 11/24/20 11:51 ED Decision to Admit Stat 11/24/20 15:47 Consult Orthopedic Surgery Routine Ordered Studies 11/24/20 09:10 CT facial bones wo con Stat IMPRESSION: No acute facial fracture. 11/24/20 09:11 CT head/brain wo con Stat IMPRESSION: No acute intracranial abnormality. Hospital Course (1) Fall: (2) Syncope: (3) Left radial head fracture: Present on admission after having an unwitnessed syncopal episode/fall Possible related to medication side effect (Polypharmacy likely contributing to fall) vs orthostatic hypotension Orthostatic vital signs positive Pt said that since starting Wellbutrin few weeks ago by her PCP that she has been having recurrent fall Forearm xray showed acute nondisplaced left radial head fracture with associated left elbow joint effusion. Ortho on board recommended non operative management and continue to wear sling for now in the Left arm Maintain NWB LUE at this time and sling immobilizer. Ice to affected area. Follow up in office 1-2 weeks for repeat XRs, . Continue pain control Nortriptyline dose to decreased to 25mg and reduced Requip to 1 mg HS. Echo showed normal left ventricular wall thickness. Left ventricular wall motion is normal. Ejection fraction greater than 70. Moderate mitral annular calcification. no evidence of atrial septal defect Continue to Hold Flexeril. PT/OT obtained fall precaution (4) Diabetes mellitus, type II: uncontrolled DM with Hba1c 8.2 continue to hold oral dm meds Pharmacy on board for glycemic management Continue Lantus and novolog sliding scale while inpatient stable (5) CHF (congestive heart failure): Will resume lasix on discharge Monitor volume status closely stable (6) Fibromyalgia: Continue Tramadol PRN, gabapentin, Cymbalta (7) CKD (chronic kidney disease), stage III: H/o CKD III/IV - baseline Cr ~1.9 Creatinine 1.9 today Avoid nephrotoxic agents when able stable (8) HTN (hypertension): Low BP on admission continue Lopressor with hold parameters Will resume lasix on dc (9) Depression with anxiety: Continue Cymbalta. Will discontinue welbutrin on discharge since pt has been having recurrent falls since starting on it few weeks ago (10) History of pulmonary embolism: S/p IVC filter placement (11) RLS (restless legs syndrome): Reduce Requip dose to 1mg HS (12) ELISSA on CPAP: (13) Obesity hypoventilation syndrome: CPAP HS Morbid obesity BMI above 50 -Lifestyle change, counseling -follow up as outpt DVT Ppx: SCDs, IVC filter in place due to history of HIT Code status: FULL PCP: Dr. Whiteside Dispo: Plan to discharge to SNF Total Time Total Time Spent Total Time Spent (In Minutes): 35 Total Time Includes: Examination of the Patient, Discharge Planning, Medication Reconciliation and Communication With Other Providers Discharge Plan Discharge Items Patient Disposition: Transfer Snf Fac Reason For Visit: RADIAL HAND FX, FALL Discharge Diagnosis: Fall/syncope likely secondary to polypharmacy, orthostatic hypotension Fracture of head of radius (Left, nondisplaced) Activity: Per Instructions section Non-emergency contact: Primary Care Provider and Surgeon Call non-emergency contact if: you have any medication questions and your symptoms worsen Follow-up/Referrals: Kevin Whiteside, [Primary Care Provider] - Diet: Carb Consistent or DM2 and Heart Healthy Addtl Attending Provider Instructions: Per orthopedics, Maintain nonweightbearing left upper extremity at this time and sling immobil izer. Ice to affected area. Follow up in office 1-2 weeks for repeat XRays, . Stop taking Wellbutrin. Decrease your dose of Requip to 1 mg nightly (instead of 2 mg). Decreased dose of nortriptyline to 25 mg nightly, instead of 50 mg. Follow-up with your primary care doctor within 1 to 2 weeks after leaving the nursing skilled facility. Monitor your weight daily and monitor your urine output and fluid intake. Pending Studies at Discharge: No Stand-Alone Forms: My [facility] Skilled Items Patient informed of condition?: Yes DNR: No Discharge Level of Care: Skilled Communicable Disease: No Discharge Prognosis: Stable Lines: None Urinary Catheter: No Medications and DC Order Prescriptions: New lidocaine 5 % Adhesive Patch,Medicated 1 patch transdermal HS Qty: 15 RF: 0 Continued clonazepam 0.5 mg Tablet 0.5 mg PO BID RF: 0 levothyroxine 25 mcg Tablet 25 mcg PO QAM RF: 0 levothyroxine 200 mcg Tablet 200 mcg PO QAM RF: 0 metoprolol tartrate 25 mg Tablet 12.5 mg PO BID RF: 0 omeprazole 20 mg Capsule,Delayed Release(Dr/Ec) 20 mg PO HS RF: 0 gabapentin 300 mg Capsule 300 mg PO TID RF: 0 furosemide [Lasix] 40 mg tablet 40 mg PO BID RF: 0 trazodone 50 mg tablet 50 mg PO HS RF: 0 magnesium oxide 400 mg (241.3 mg magnesium) Tablet 400 mg PO DAILY RF: 0 insulin aspart U-100 [Novolog U-100 Insulin aspart] 100 unit/mL solution 0 unit subcut ACHS RF: 0 colchicine 0.6 mg Tablet 0.3 mg PO DAILY RF: 0 duloxetine 30 mg Capsule,Delayed Release(Dr/Ec) 30 mg PO DAILY RF: 0 docusate sodium [Colace] 100 mg capsule 100 mg PO BID Qty: 60 RF: 0 Tresiba FlexTouch U-100 100 unit/mL (3 mL) Insulin Pen 55 unit SUBCUT HS RF: 0 cyclobenzaprine 10 mg Tablet 10 mg PO HS PRN (Reason: Muscle Spasm) RF: 0 duloxetine 60 mg capsule,delayed release(DR/EC) 60 mg PO QAM RF: 0 acetaminophen [Tylenol Extra Strength] 500 mg Tablet 1,000 mg PO Q6H PRN (Reason: Pain) RF: 0 Trulicity 1.5 mg/0.5 mL pen injector 1.5 mg SUBCUT WK RF: 0 potassium chloride 10 mEq tablet,ER particles/crystals 10 meq PO Q OTHER DAY RF: 0 dicyclomine 20 mg tablet 20 mg PO TID PRN (Reason: abdominal pain) Qty: 20 RF: 0 tramadol 50 mg tablet 50 mg PO Q8H PRN (Reason: Pain) RF: 0 cholecalciferol (vitamin D3) 25 mcg (1,000 unit) Capsule 1,000 unit PO QAM Qty: 30 RF: 1 Changed nortriptyline [Pamelor] 50 mg Capsule 25 mg PO HS Qty: 0 RF: 0 ropinirole [Requip XL] 2 mg Tablet Extended Release 24 Hr 1 mg PO HS Qty: 0 RF: 0 Discontinued bupropion HCl 150 mg tablet extended release 24 hr 150 mg PO DAILY RF: 0 Discharge Orders: Discharge Order (Routine); Ordered 11/26/20 Ordered By: Miguel Loya/Other Patient Handouts: Managing Type 2 Diabetes Admission Data Admit Date/Time: 11/24/20 12:56 Attending Provider: Miguel Hampton Admit Provider: Vidal De Leon Primary Care Provider: Kevin Whiteside Other Providers: Vidal De Leon ; Kofi Belle ; [facility], Other Interventions: Discharge Summary Assessment (RN) Last Done: 11/26/20 13:27
[2020-11-26] MEDS ORDERED: TRULICITY: ORDER AWAITING ACTION SCH (16:00)
== END 2020-11-26 17:34 ==
LOC: ED 08:36 → SUATTDRO 12:56 → 2W 12:56

== ENCOUNTER 2021-03-26 20:18 | Observation (INO) ==
[2021-03-26] MEDS ORDERED: SODIUM CHLORIDE 0.9% 1000ML 1,000 ML IV ONE (20:48)
[2021-03-26] MEDS ORDERED: ACETAMINOPHEN 1,000 MG/100 ML VIAL IV STA (20:48)
[2021-03-26 21:25] LABS: Basophils # (auto) 0.03 K/uL (0-0.2); Basophils % (auto) 0.4 %; Eosinophils % (auto) 5.1 %; Hematocrit (blood only) 40.9 % (37-47); Hemoglobin 12.9 g/dL (12.0-16.0); Immature Granulocytes # (auto) 0.04 K/uL (0.00-0.02); Immature Granulocytes % (auto) 0.5 %; Lymphocytes # (auto) 1.81 K/uL (1.2-3.4); Lymphocytes % (auto) 23.2 %; Mean Corpuscular Hemoglobin 29.9 pg (25-34); Mean Corpuscular Hgb Conc 31.5 g/dL (32-36); Mean Corpuscular Volume 94.9 fL (80-100); Mean Platelet Volume 9.6 fL (7.4-10.4); Monocytes # (auto) 0.39 K/uL (0.11-0.59); Neutrophils # (auto) 5.14 K/uL (1.4-6.5); Neutrophils % (auto) 65.8 %; Platelet Count 188 K/uL (130-400); RDW Standard Deviation 55.4 fL (36.4-46.3); Red Blood Count 4.31 M/uL (4.2-5.4); White Blood Count 7.81 K/uL (4.8-10.8)
[2021-03-26 21:32] LABS: Alanine Aminotransferase 23 U/L (12-78); Albumin Level 3.4 gm/dl (3.4-5.0); Aspartate Aminotransferase 23 U/L (15-37); BUN Creatinine Ratio 13.9 (10-20); Blood Urea Nitrogen 23 mg/dl (7-18); Calcium 8.7 mg/dl (8.5-10.1); Carbon Dioxide 31 mmol/L (21-32); Chloride 103 mmol/L (98-107); Creatinine Clr Calc Pharmacy 52.1 ml/min; Est GFR (African American) 37.1 ml/min; Glucose 83 mg/dl (70-99); Lipase 109 U/L (73-393); Potassium 3.5 mmol/L (3.5-5.1); Sodium 139 mmol/L (136-145)
[2021-03-26 21:37] LABS: Albumin Globulin Ratio 0.8 (0.9-2); Alkaline Phosphatase 69 U/L (45-117); Bilirubin,Total 0.3 mg/dl (0.2-1); Globulin 4.1 gm/dl (2.5-4.0); Total Protein 7.5 gm/dl (6.4-8.2); Troponin I < 0.015 ng/ml (0-0.045)
[2021-03-26 22:01] LABS: Appearance Urine Clear (Clear); Bilirubin Urine Negative (Negative); Blood Urine Negative (Negative); Color Urine Yellow; Glucose Urine UA Negative (Negative); Ketones Urine Negative (Negative); Leukocyte Esterase Urine Negative (Negative); Nitrite Urine Negative (Negative); Protein Urine Negative (Negative); Specific Gravity Urine 1.006 (1.000-1.030); Urobilinogen Urine Negative (Negative)
[2021-03-26] MEDS ORDERED: cefTRIAXone SODIUM 2,000 MG/70 ML BAG IV STA (23:51)
--- NOTE | 2021-03-26 23:51 | Emergency Department Note ---
Impression & Plan Complicated urinary tract infection, Dizziness, Generalized weakness, Dehydration ED Provider Note NAME: GEENA MAC AGE: 65 SEX: F ARRIVES VIA: Ambulance INFORMANT: Patient, ED PROVIDER(S): Regino Julien MD CHIEF COMPLAINT: Weakness PLAN: Disposition: Admit MEDICAL DECISION MAKING: The patient is a pleasant 65-year-old woman with a past medical history of chronic diastolic heart failure, hypertension, hyperlipidemia, type 2 diabetes, CKD, history of PE/DVT status post IVC filter in setting of history of heparin- induced thrombocytopenia, ELISSA on CPAP, pickwickian syndrome on home oxygen, history of tobacco abuse, fibromyalgia, restless leg syndrome who presents to the emergency department with generalized weakness, bodyaches, nausea, dizziness in setting of being diagnosed with a UTI on 03/24 started on Bactrim with culture subsequently growing pansensitive Klebsiella. She denies any fevers, chills, cough, congestion, GI symptoms. On arrival patient is chronically ill-appearing, fatigued but no acute distress, afebrile stable vital signs. She appears clinically dry with dry cracked mucous membranes. No focal neurologic deficits. Mild erythema and warmth of right lower leg. EKG without overt acute ischemia. CXR with interstitial thickening improved from prior per my preliminary review. WBC, H/H, platelets wnl. Chemistry without acidosis. Cr. 1.6 similar to prior range of values in setting of CKD. Lactate wnl. Procalcitonin is not elevated. Electrolytes unremarkable. LFTs without significant abnormality. Troponin negative/undetectable. Covid-[address] abd/pelvis negative for acute intra-abdominal process per preliminary statrad report. RLE US negative for DVT. Given the patient's symptoms in the setting of recently diagnosed UTI reasonable to admit for further management. Patient agrees with plan for admission. Treatment for complicated UTI initiated to CTX. Case was discussed with Dr. Laurent, [facility] hospitalist, who will evaluate the patient for admission. Triage Nursing notes reviewed and agree them. Additional history obtained from [facility] records Prior medical records reviewed Vital Signs: reviewed and remarkable for no significant abnormalities Differential diagnosis: Infection, dehydration, metabolic abnormality, hypo/hyperglycemia, electrolyte disturbance, anemia, hypoxia, cardiac sources, intracerebral event, toxicologic, neurologic, as well as other pathologies. ER treatment provided: See below. Diagnostics interpreted by me: ECG: Normal sinus rhythm, 82 bpm, no ectopy, no overt ST elevation or depr ession, QTC 445, QRS 80. Cardiac Monitoring: An order for continuous cardiac monitoring was placed and demonstrated Normal sinus rhythm, 82 bpm, no ectopy. Laboratory studies: See below Imaging studies: CXR: interstitial thickening improved from prior per my preliminary review. STATRAD Preliminary Findings Only See Final Report For Complete Findings CT ABDOMEN & PELVIS Without Contrast: Malrotated right kidney with extrarenal pelvis, stable in the interval. No urolithiasis or hydronephrosis. No pathologic urinary bladder distention. [place] ventral hernia with protrusion of transverse colon, stable in the interval. No strangulation. No obstruction or perforation. Unremarkable isael endix. Aortoiliac atherosclerosis without aneurysm. IVC filter. Redemonstrated hepatosplenomegaly. Radiologist: Bryon Szymanski M.D. Study ready at 22:40 and initial results transmitted at 22:57 Consultation(s): Case was discussed with Dr. Laurent, [facility] hospitalist, who will evaluate the patient for admission. HPI: The patient is a pleasant 65-year-old woman with a past medical history of chronic diastolic heart failure, hypertension, hyperlipidemia, type 2 diabetes, CKD, history of PE/DVT status post IVC filter in setting of history of heparin- induced thrombocytopenia, ELISSA on CPAP, pickwickian syndrome on home oxygen, history of tobacco abuse, fibromyalgia, restless leg syndrome who presents to the emergency department with generalized weakness, bodyaches, nausea, dizziness in setting of being diagnosed with a UTI on 03/24 started on Bactrim with culture subsequently growing pansensitive Klebsiella. She denies any fevers, chills, cough, congestion, GI symptoms. ROS: See above HPI for pertinent positives & negatives. A total of 10 systems reviewed and were otherwise negative. PAST MEDICAL HISTORY:See Below PAST SURGICAL HISTORY:See Below FAMILY HISTORY:See Below SOCIAL HISTORY:See Below HOME MEDICATIONS:See Below ALLERGIES:See Below VITALS:See Below PHYSICAL EXAMINATION: GENERAL: Awake, alert, chronically ill-appearing, in no distress, BMI 58.2 HENT: Normocephalic, atraumatic. Oropharynx with dry/cracked MM. EYES: Normal conjunctiva. Sclera non-icteric. NECK: Supple. No nuchal rigidity. FROM. No JVD. RESPIRATORY: Diminished at bases, otherwise clear to auscultation. CARDIAC: Regular rate, normal rhythm. Extremities warm and well perfused. Pulses equal. ABDOMEN: Soft, non-distended. No tenderness to palpation. No rebound or guarding. No masses. RECTAL: Deferred. MUSCULOSKELETAL: Chest examination reveals no tenderness. The back is symmetrical on inspection without obvious abnormality. There is no CVA tenderness to palpation. No joint edema. LOWER EXTREMITIES: 1+ BLE edema. Mild erythema and warmth of right lower leg. NEURO: Normal sensorium. No sensory or motor deficits noted. SKIN: No rash or jaundice noted. Regino Julien MD Past Med/Surg History Medical History CKD (chronic kidney disease), stage III Depression with anxiety Diabetes Diabetes mellitus, type II Fibromyalgia GERD (gastroesophageal reflux disease) History of DVT (deep vein thrombosis) History of pulmonary embolism s/p zoraida filter HIT (heparin-induced thrombocytopenia) HLD (hyperlipidemia) HTN (hypertension) Hypothyroidism Morbid obesity ELISSA on CPAP Presence of IVC filter RLS (restless legs syndrome) Sepsis Surgical History History of cholecystectomy History of colon resection secondary to R colon perforation, resected treated with colostomy and eventual reversal in 2008, Dr. Lerma History of thyroidectomy, total History of total right knee replacement History of tracheostomy 2010, secondary to acute resp failure secondary to pneumonia, transferred to [facility] Family History Father , age 74 Lung cancer Mother , age 45 Cirrhosis Social History Smoking Status: Never smoker Cigarettes Per Day: 15 pack year hx; Second Hand Exposure: No; Hx Alcohol Use: Yes Alcohol type: beer Hx Substance Use: No Preferred Language: Peruvian Communication Ability: Effective Vehicle Operator Required: No Beliefs That Will Affect Care: None marital status: Single Current Living Situation: Alone How many Children do You have: 0 Feels Safe at Home: Yes Assistive Devices: Brace/Splint/Immobilizer and Glasses Allergies Allergies Allergy/AdvReac Type Severity Reaction Status Date / Time morphine Allergy Severe VIOLENT Verified 03/27/21 00:53 REACTION-"ALMOST " SWELLING tetanus toxoid, adsorbed Allergy Intermediate PASSED OUT Verified 03/27/21 00:53 AND GOT SICK WHEN A CHILD acetaminophen [From Vicodin] AdvReac Intermediate sleepiness Verified 03/27/21 00:53 codeine AdvReac Intermediate Hallucinati Verified 03/27/21 00:53 ons empagliflozin AdvReac Intermediate YEAST Verified 03/27/21 00:53 [From Jardiance] INFECTIONS heparin AdvReac Intermediate HIT; FLUID Verified 03/27/21 00:53 IN LUNGS hydrocodone [From Vicodin] AdvReac Intermediate sleepiness Verified 03/27/21 00:53 Home Meds Home Medications Medication Instructions Recorded Confirmed clonazepam 0.5 mg PO BID 06/09/18 03/27/21 levothyroxine 200 mcg PO QAM 06/09/18 03/27/21 metoprolol tartrate 12.5 mg PO BID 06/09/18 03/27/21 omeprazole 20 mg PO HS 06/09/18 03/27/21 cyclobenzaprine 10 mg PO HS PRN 12/08/18 03/27/21 duloxetine 60 mg PO QAM 12/23/18 03/27/21 gabapentin 300 mg PO TID 05/09/19 03/27/21 colchicine 0.3 mg PO DAILY 01/25/20 03/27/21 duloxetine 30 mg PO DAILY 01/25/20 03/27/21 furosemide [Lasix] 20 mg PO BID 01/25/20 03/27/21 insulin aspart U-100 [Novolog 0 unit SUBCUT [facility] 01/25/20 03/27/21 U-100 Insulin aspart] magnesium oxide 400 mg PO DAILY 01/25/20 03/27/21 trazodone 50 mg PO HS 01/25/20 03/27/21 potassium chloride 10 meq PO Q OTHER DAY 03/10/20 03/27/21 tramadol 50 mg PO Q8H PRN 07/19/20 03/27/21 Tresiba FlexTouch U-100 60 unit SUBCUT HS 11/24/20 03/27/21 amoxicillin-pot clavulanate 1 tab PO Q12 03/27/21 03/27/21 dicyclomine 20 mg PO QID PRN 03/27/21 03/27/21 docusate sodium [Colace] 100 mg PO BID PRN 03/27/21 03/27/21 dulaglutide [Trulicity] 3 mg SUBCUT WK 03/27/21 03/27/21 insulin aspart U-100 [Novolog 40 unit SUBCUT WM 03/27/21 03/27/21 Flexpen U-100 Insulin] levothyroxine 50 mcg PO QAM 03/27/21 03/27/21 meclizine 12.5 mg PO TID PRN 03/27/21 03/27/21 nortriptyline [Pamelor] 50 mg PO HS 03/27/21 03/27/21 Previous Rx's Medication Instructions Recorded cholecalciferol (vitamin D3) 1,000 unit PO QAM #30 cap 07/22/20 lidocaine 1 patch TRANSDERMAL HS #15 ea 11/26/20 ropinirole [Requip XL] 1 mg PO HS #0 tab 11/26/20 Results & Data (ED) Vital Signs Vital Signs - 24 hr 03/26/21 20:20 03/26/21 22:00 03/27/21 00:49 Temperature 37.0 C Temperature Source Oral Pulse Rate 88 Pulse Rate [Apical] 86 85 Pulse Rhythm Regular Pulse Rhythm [Apical] Regular Regular Pulse Strength Normal Pulse Strength [Apical] Normal Respiratory Rate 20 22 20 Respiratory Effort / Characteristics Non-Labored Spontaneous Non-Labored Spontaneous Respiratory Depth Normal Normal Normal Respiratory Pattern Regular Regular Blood Pressure 128/71 Blood Pressure [Left Arm] 116/71 114/81 Blood Pressure Mean 90 Blood Pressure Mean [Left Arm] 86 92 Blood Pressure Position Lying Blood Pressure Position [Left Arm] Lying Lying Pulse Oximetry 96 94 95 Oxygen Delivery Method Nasal Cannula Room Air Nasal Cannula Oxygen Flow Rate 2 2 Sepsis Recent Fever Within 48 Hours No Sepsis New/Unexplained Change in Mental Status N/A Sepsis Action Taken by Nursing No Action Required 03/27/21 02:19 Temperature Temperature Source Pulse Rate Pulse Rate [Apical] 85 Pulse Rhythm Pulse Rhythm [Apical] Regular Pulse Strength Pulse Strength [Apical] Normal Respiratory Rate 18 Respiratory Effort / Characteristics Non-Labored Spontaneous Respiratory Depth Normal Respiratory Pattern Blood Pressure Blood Pressure [Left Arm] 127/71 Blood Pressure Mean Blood Pressure Mean [Left Arm] 89 Blood Pressure Position Blood Pressure Position [Left Arm] Pulse Oximetry 96 Oxygen Delivery Method Nasal Cannula Oxygen Flow Rate 2 Sepsis Recent Fever Within 48 Hours Sepsis New/Unexplained Change in Mental Status Sepsis Action Taken by Nursing Laboratory Data Attestation: I reviewed the patient's lab results. Result diagrams: 03/26/21 20:51 03/26/21 20:51 Lab Results 03/26/21 03/26/21 03/26/21 Range/Units 20:51 20:51 20:51 WBC 7.81 (4.8-10.8) K/uL RBC 4.31 (4.2-5.4) M/uL Hgb 12.9 (12.0-16.0) g/dL Hct 40.9 (37-47) % MCV 94.9 (80-100) fL MCH 29.9 (25-34) pg MCHC 31.5 L (32-36) g/dL RDW Std Deviation 55.4 H (36.4-46.3) fL RDW Coeff of Adolfo 16.0 H (11.5-14.5) % Plt Count 188 (130-400) K/uL MPV 9.6 (7.4-10.4) fL Immature Gran % (Auto) 0.5 % Neut % (Auto) 65.8 % Lymph % (Auto) 23.2 % [place] % (Auto) 5.0 % Eos % (Auto) 5.1 % Baso % (Auto) 0.4 % Neut # (Auto) 5.14 (1.4-6.5) K/uL Lymph # (Auto) 1.81 (1.2-3.4) K/uL [place] # (Auto) 0.39 (0.11-0.59) K/uL Eos # (Auto) 0.40 (0-0.5) K/uL Baso # (Auto) 0.03 (0-0.2) K/uL Immature Gran # (Auto) 0.04 H (0.00-0.02) K/uL PT Cancelled INR Cancelled APTT Cancelled PTT Ratio Cancelled Sodium 139 (136-145) mmol/L Potassium 3.5 (3.5-5.1) mmol/L Chloride 103 (98-107) mmol/L Carbon Dioxide 31 (21-32) mmol/L Anion Gap 5.0 (3-11) BUN 23 H (7-18) mg/dl Creatinine 1.66 H (0.6-1.2) mg/dl Est Cr Clr Drug Dosing 52.1 ml/min Est GFR ( Amer) 37.1 ml/min Est GFR (Non-Af Amer) 32.0 ml/min BUN/Creatinine Ratio 13.9 (10-20) Glucose 83 (70-99) mg/dl Lactate (0.4-2.0) mmol/L Calcium 8.7 (8.5-10.1) mg/dl Magnesium (1.8-2.4) mg/dl Total Bilirubin 0.3 (0.2-1) mg/dl AST 23 (15-37) U/L ALT 23 (12-78) U/L Alkaline Phosphatase 69 (45-117) U/L Total Creatine Kinase (26-192) U/L Troponin I < 0.015 (0-0.045) ng/ml Total Protein 7.5 (6.4-8.2) gm/dl Albumin 3.4 (3.4-5.0) gm/dl Globulin 4.1 H (2.5-4.0) gm/dl Albumin/Globulin Ratio 0.8 L (0.9-2) Lipase 109 (73-393) U/L Procalcitonin (0-0.5) ng/ml TSH (0.300-4.500) uIu/ml Urine Color Urine Appearance (Clear) Urine pH (4.5-7.5) Ur Specific Stewart (1.000-1.030) Urine Protein (Negative) Urine Glucose (UA) (Negative) Urine Ketones (Negative) Urine Blood (Negative) Urine Nitrite (Negative) Urine Bilirubin (Negative) Urine Urobilinogen (Negative) Ur Leukocyte Esterase (Negative) Lyme Disease IgG Ab (Negative) Lyme Disease IgM Ab (Negative) COVID-19 Eval Order SARS-CoV-2 (PCR) (Negative) 03/26/21 03/26/21 03/26/21 Range/Units 20:51 21:20 21:20 WBC (4.8-10.8) K/uL RBC (4.2-5.4) M/uL Hgb (12.0-16.0) g/dL Hct (37-47) % MCV (80-100) fL MCH (25-34) pg MCHC (32-36) g/dL RDW Std Deviation (36.4-46.3) fL RDW Coeff of Adolfo (11.5-14.5) % Plt Count (130-400) K/uL MPV (7.4-10.4) fL Immature Gran % (Auto) % Neut % (Auto) % Lymph % (Auto) % [place] % (Auto) % Eos % (Auto) % Baso % (Auto) % Neut # (Auto) (1.4-6.5) K/uL Lymph # (Auto) (1.2-3.4) K/uL [place] # (Auto) (0.11-0.59) K/uL Eos # (Auto) (0-0.5) K/uL Baso # (Auto) (0-0.2) K/uL Immature Gran # (Auto) (0.00-0.02) K/uL PT INR APTT PTT Ratio Sodium (136-145) mmol/L Potassium (3.5-5.1) mmol/L Chloride (98-107) mmol/L Carbon Dioxide (21-32) mmol/L Anion Gap (3-11) BUN (7-18) mg/dl Creatinine (0.6-1.2) mg/dl Est Cr Clr Drug Dosing ml/min Est GFR ( Amer) ml/min Est GFR (Non-Af Amer) ml/min BUN/Creatinine Ratio (10-20) Glucose (70-99) mg/dl Lactate (0.4-2.0) mmol/L Calcium (8.5-10.1) mg/dl Magnesium (1.8-2.4) mg/dl Total Bilirubin (0.2-1) mg/dl AST (15-37) U/L ALT (12-78) U/L Alkaline Phosphatase (45-117) U/L Total Creatine Kinase (26-192) U/L Troponin I (0-0.045) ng/ml Total Protein (6.4-8.2) gm/dl Albumin (3.4-5.0) gm/dl Globulin (2.5-4.0) gm/dl Albumin/Globulin Ratio (0.9-2) Lipase (73-393) U/L Procalcitonin < 0.05 (0-0.5) ng/ml TSH (0.300-4.500) uIu/ml Urine Color Yellow Urine Appearance Clear (Clear) Urine pH 7.0 (4.5-7.5) Ur Specific Stewart 1.006 (1.000-1.030) Urine Protein Negative (Negative) Urine Glucose (UA) Negative (Negative) Urine Ketones Negative (Negative) Urine Blood Negative (Negative) Urine Nitrite Negative (Negative) Urine Bilirubin Negative (Negative) Urine Urobilinogen Negative (Negative) Ur Leukocyte Esterase Negative (Negative) Lyme Disease IgG Ab (Negative) Lyme Disease IgM Ab (Negative) COVID-19 Eval Order Covid19 at [facility] SARS-CoV-2 (PCR) (Negative) 03/26/21 03/26/21 03/27/21 Range/Units 21:20 21:51 00:37 WBC (4.8-10.8) K/uL RBC (4.2-5.4) M/uL Hgb (12.0-16.0) g/dL Hct (37-47) % MCV (80-100) fL MCH (25-34) pg MCHC (32-36) g/dL RDW Std Deviation (36.4-46.3) fL RDW Coeff of Adolfo (11.5-14.5) % Plt Count (130-400) K/uL MPV (7.4-10.4) fL Immature Gran % (Auto) % Neut % (Auto) % Lymph % (Auto) % [place] % (Auto) % Eos % (Auto) % Baso % (Auto) % Neut # (Auto) (1.4-6.5) K/uL Lymph # (Auto) (1.2-3.4) K/uL [place] # (Auto) (0.11-0.59) K/uL Eos # (Auto) (0-0.5) K/uL Baso # (Auto) (0-0.2) K/uL Immature Gran # (Auto) (0.00-0.02) K/uL PT Cancelled INR Cancelled APTT Cancelled PTT Ratio Cancelled Sodium (136-145) mmol/L Potassium (3.5-5.1) mmol/L Chloride (98-107) mmol/L Carbon Dioxide (21-32) mmol/L Anion Gap (3-11) BUN (7-18) mg/dl Creatinine (0.6-1.2) mg/dl Est Cr Clr Drug Dosing ml/min Est GFR ( Amer) ml/min Est GFR (Non-Af Amer) ml/min BUN/Creatinine Ratio (10-20) Glucose (70-99) mg/dl Lactate 0.9 (0.4-2.0) mmol/L Calcium (8.5-10.1) mg/dl Magnesium (1.8-2.4) mg/dl Total Bilirubin (0.2-1) mg/dl AST (15-37) U/L ALT (12-78) U/L Alkaline Phosphatase (45-117) U/L Total Creatine Kinase (26-192) U/L Troponin I (0-0.045) ng/ml Total Protein (6.4-8.2) gm/dl Albumin (3.4-5.0) gm/dl Globulin (2.5-4.0) gm/dl Albumin/Globulin Ratio (0.9-2) Lipase (73-393) U/L Procalcitonin (0-0.5) ng/ml TSH (0.300-4.500) uIu/ml Urine Color Urine Appearance (Clear) Urine pH (4.5-7.5) Ur Specific Stewart (1.000-1.030) Urine Protein (Negative) Urine Glucose (UA) (Negative) Urine Ketones (Negative) Urine Blood (Negative) Urine Nitrite (Negative) Urine Bilirubin (Negative) Urine Urobilinogen (Negative) Ur Leukocyte Esterase (Negative) Lyme Disease IgG Ab (Negative) Lyme Disease IgM Ab (Negative) COVID-19 Eval Order SARS-CoV-2 (PCR) NEGATIVE (Negative) 03/27/21 03/27/21 Range/Units 00:39 00:39 WBC (4.8-10.8) K/uL RBC (4.2-5.4) M/uL Hgb (12.0-16.0) g/dL Hct (37-47) % MCV (80-100) fL MCH (25-34) pg MCHC (32-36) g/dL RDW Std Deviation (36.4-46.3) fL RDW Coeff of Adolfo (11.5-14.5) % Plt Count (130-400) K/uL MPV (7.4-10.4) fL Immature Gran % (Auto) % Neut % (Auto) % Lymph % (Auto) % [place] % (Auto) % Eos % (Auto) % Baso % (Auto) % Neut # (Auto) (1.4-6.5) K/uL Lymph # (Auto) (1.2-3.4) K/uL [place] # (Auto) (0.11-0.59) K/uL Eos # (Auto) (0-0.5) K/uL Baso # (Auto) (0-0.2) K/uL Immature Gran # (Auto) (0.00-0.02) K/uL PT INR APTT PTT Ratio Sodium (136-145) mmol/L Potassium (3.5-5.1) mmol/L Chloride (98-107) mmol/L Carbon Dioxide (21-32) mmol/L Anion Gap (3-11) BUN (7-18) mg/dl Creatinine (0.6-1.2) mg/dl Est Cr Clr Drug Dosing ml/min Est GFR ( Amer) ml/min Est GFR (Non-Af Amer) ml/min BUN/Creatinine Ratio (10-20) Glucose (70-99) mg/dl Lactate (0.4-2.0) mmol/L Calcium (8.5-10.1) mg/dl Magnesium 1.8 (1.8-2.4) mg/dl Total Bilirubin (0.2-1) mg/dl AST (15-37) U/L ALT (12-78) U/L Alkaline Phosphatase (45-117) U/L Total Creatine Kinase 141 (26-192) U/L Troponin I (0-0.045) ng/ml Total Protein (6.4-8.2) gm/dl Albumin (3.4-5.0) gm/dl Globulin (2.5-4.0) gm/dl Albumin/Globulin Ratio (0.9-2) Lipase (73-393) U/L Procalcitonin (0-0.5) ng/ml TSH 1.870 (0.300-4.500) uIu/ml Urine Color Urine Appearance (Clear) Urine pH (4.5-7.5) Ur Specific Stewart (1.000-1.030) Urine Protein (Negative) Urine Glucose (UA) (Negative) Urine Ketones (Negative) Urine Blood (Negative) Urine Nitrite (Negative) Urine Bilirubin (Negative) Urine Urobilinogen (Negative) Ur Leukocyte Esterase (Negative) Lyme Disease IgG Ab Negative (Negative) Lyme Disease IgM Ab Equivocal A (Negative) COVID-19 Eval Order SARS-CoV-2 (PCR) (Negative) Administered Medications Discontinued Medications Gabapentin (Gabapentin 300 Mg Cap) 300 mg PO NOW STA Stop: 03/27/21 02:09 Last Admin: 03/27/21 02:19 Dose: 300 mg Documented by: [id number] Sodium Chloride (Nss 1000ml) 1,000 mls @ 999 mls/hr IV .Q1H1M ONE Stop: 03/26/21 21:48 Last Infusion: 03/26/21 22:05 Dose: 0 mls/hr Documented by: [id number] Infusion: 03/26/21 22:05 Dose: 0 mls/hr Documented by: [id number] Admin: 03/26/21 21:05 Dose: 999 mls/hr Documented by: [id number] Acetaminophen (Ofirmev) 1,000 mg in 100 mls @ 400 mls/hr IV NOW STA Stop: 03/26/21 21:02 Last Infusion: 03/26/21 21:20 Dose: 0 mls/hr Documented by: [id number] Admin: 03/26/21 21:05 Dose: 400 mls/hr Documented by: [id number] Ceftriaxone Sodium (Rocephin) 2,000 mg in 70 mls @ 140 mls/hr IV NOW STA Stop: 03/27/21 00:20 Last Infusion: 03/27/21 01:20 Dose: 0 mls/hr Documented by: [id number] Admin: 03/27/21 00:48 Dose: 140 mls/hr Documented by: [id number] Discharge Plan Visit Data Chief Complaint: Dizziness Stated Complaint: DIZZY/NAUSEA ED Provider: Regino Julien Discharge Problem: Complicated urinary tract infection, Dizziness, Generalized weakness, Dehydration Forms Stand Alone Forms: My [facility] [employer] Prescriptions Prescriptions: No Action clonazepam 0.5 mg Tablet 0.5 mg PO BID RF: 0 levothyroxine 200 mcg Tablet 200 mcg PO QAM RF: 0 metoprolol tartrate 25 mg Tablet 12.5 mg PO BID RF: 0 omeprazole 20 mg Capsule,Delayed Release(Dr/Ec) 20 mg PO HS RF: 0 gabapentin 300 mg Capsule 300 mg PO TID RF: 0 furosemide [Lasix] 40 mg tablet 20 mg PO BID RF: 0 trazodone 50 mg tablet 50 mg PO HS RF: 0 magnesium oxide 400 mg (241.3 mg magnesium) Tablet 400 mg PO DAILY RF: 0 insulin aspart U-100 [Novolog U-100 Insulin aspart] 100 unit/mL solution 0 unit subcut ACHS RF: 0 colchicine 0.6 mg Tablet 0.3 mg PO DAILY RF: 0 duloxetine 30 mg Capsule,Delayed Release(Dr/Ec) 30 mg PO DAILY RF: 0 Tresiba FlexTouch U-100 100 unit/mL (3 mL) Insulin Pen 60 unit SUBCUT HS RF: 0 ropinirole [Requip XL] 2 mg Tablet Extended Release 24 Hr 1 mg PO HS Qty: 0 RF: 0 lidocaine 5 % Adhesive Patch,Medicated 1 patch transdermal HS Qty: 15 RF: 0 cyclobenzaprine 10 mg Tablet 10 mg PO HS PRN (Reason: Muscle Spasm) RF: 0 duloxetine 60 mg capsule,delayed release(DR/EC) 60 mg PO QAM RF: 0 potassium chloride 10 mEq tablet,ER particles/crystals 10 meq PO Q OTHER DAY RF: 0 tramadol 50 mg tablet 50 mg PO Q8H PRN (Reason: Pain) RF: 0 cholecalciferol (vitamin D3) 25 mcg (1,000 unit) Capsule 1,000 unit PO QAM Qty: 30 RF: 1 insulin aspart U-100 [Novolog Flexpen U-100 Insulin] 100 unit/mL (3 mL) insulin pen 40 unit SUBCUT WM RF: 0 amoxicillin-pot clavulanate 875-125 mg tablet 1 tab PO Q12 RF: 0 Trulicity 3 mg/0.5 mL pen injector 3 mg SUBCUT WK RF: 0 dicyclomine 20 mg tablet 20 mg PO QID PRN (Reason: abdominal pain) RF: 0 nortriptyline [Pamelor] 50 mg capsule 50 mg PO HS RF: 0 levothyroxine 50 mcg tablet 50 mcg PO QAM RF: 0 docusate sodium [Colace] 100 mg capsule 100 mg PO BID PRN (Reason: Constipation) RF: 0 meclizine 12.5 mg tablet 12.5 mg PO TID PRN (Reason: Dizziness) RF: 0 Referrals Referrals: Kevin Whiteside DO [Primary Care Provider] -
[2021-03-27 02:00] LABS: Magnesium 1.8 mg/dl (1.8-2.4); Thyroid Stimulating Hormone 1.87 uIu/ml (0.300-4.500)
[2021-03-27] MEDS ORDERED: GABAPENTIN 300 MG CAP PO STA (02:08)
--- NOTE | 2021-03-27 02:18 | History & Physical Report ---
Date of Service March 27, 2021 Assessment & Plan (1) Dizziness: Recurrent dizziness Likely secondary to orthostasis given SBP of 90s at the ER at one point, possible autonomic dysfunction from poorly controlled DM insulin requiring Rule out cerebrovascular disease given risk factors and off balance descriptors Complicated UTI (pansensitive Klebsiella pneumonia) status post incomplete courses of Augmentin and Bactrim chronic diastolic heart failure, patient on the dry side ARF on CKD secondary to illness DM2 insulin requiring, suboptimal control as of recent hemoglobin A1c of 8.25 November 2020 history PE DVT status post IVC filter placement secondary to heparin-induced thrombocytopenia Past tobacco abuse OBS Medical telemetry Check orthostatic vitals Initiate midodrine MRI brain RE dizziness with off-balance sensation Monitor creatinine response to IVF cultures, check lactic acid Keflex course for complicated UTI PT OT eval Basal insulin, ISS BG goal 1 10-1 40, carb count coverage, update hemoglobin A1c PT OT eval DVT prophylaxis. Arixtra, hx heparin-induced thrombocytopenia Full code Text document was generated using [employer] voice recognition software. It may contain grammatical or spelling errors. Kindly contact undersigned for clarification of any documentation item in question. History of Present Illness Chief Complaint: Dizziness Primary Care Provider: Kevin Whiteside, DO History obtained from patient and records. Medical history significant for chronic diastolic heart failure (70%, TTE 2020), hypertension, hyperlipidemia, DM2 insulin requiring, CRI (baseline creatinine 1.6), history PE DVT status post IVC filter placement secondary to heparin- induced thrombocytopenia, chronic respiratory failure on home O2 as per records, ELISSA on CPAP, past tobacco abuse, fibromyalgia, restless legs syndrome. Last confinement November 2020 for syncope attributed to orthostatic hypotension and polypharmacy. Patient not feeling well the last few weeks. Dizziness described as unsteadiness and feeling off balance as per patient. Walking into poe. Not spinning as per patient no headache as per patient. Patient denies chest pain, S OB. Dysuria symptoms without abdominal pain. Appetite not too good. Patient seen at PCP's office last week. UA grew pansensitive Klebsiella. Patient prescribed Augmentin which she was not able to tolerate. Augmentin later switched to Bactrim 3 days ago. Patient consulted ER for worsening dizziness symptoms and achiness/cramping all over. 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 Allergies Allergy/AdvReac Type Severity Reaction Status Date / Time morphine Allergy Severe VIOLENT Verified 03/27/21 00:53 REACTION-"ALMOST " SWELLING tetanus toxoid, adsorbed Allergy Intermediate PASSED OUT Verified 03/27/21 00:53 AND GOT SICK WHEN A CHILD acetaminophen [From Vicodin] AdvReac Intermediate sleepiness Verified 03/27/21 00:53 codeine AdvReac Intermediate Hallucinati Verified 03/27/21 00:53 ons empagliflozin AdvReac Intermediate YEAST Verified 03/27/21 00:53 [From Jardiance] INFECTIONS heparin AdvReac Intermediate HIT; FLUID Verified 03/27/21 00:53 IN LUNGS hydrocodone [From Vicodin] AdvReac Intermediate sleepiness Verified 03/27/21 00:53 bupropion [From Wellbutrin] AdvReac Recurrent Verified 03/27/21 09:24 falls as per patient Home Medications Medication Instructions Recorded Confirmed Type clonazepam 0.5 mg PO BID 06/09/18 03/27/21 History levothyroxine 200 mcg PO QAM 06/09/18 03/27/21 History metoprolol tartrate 12.5 mg PO BID 06/09/18 03/27/21 History omeprazole 20 mg PO HS 06/09/18 03/27/21 History cyclobenzaprine 10 mg PO HS PRN 12/08/18 03/27/21 History duloxetine 60 mg PO QAM 12/23/18 03/27/21 History gabapentin 300 mg PO TID 05/09/19 03/27/21 History colchicine 0.3 mg PO DAILY 01/25/20 03/27/21 History duloxetine 30 mg PO DAILY 01/25/20 03/27/21 History furosemide [Lasix] 20 mg PO BID 01/25/20 03/27/21 History insulin aspart U-100 [Novolog 0 unit SUBCUT ACHS 01/25/20 03/27/21 History U-100 Insulin aspart] magnesium oxide 400 mg PO DAILY 01/25/20 03/27/21 History trazodone 50 mg PO HS 01/25/20 03/27/21 History potassium chloride 10 meq PO Q OTHER DAY 03/10/20 03/27/21 History tramadol 50 mg PO Q8H PRN 07/19/20 03/27/21 History cholecalciferol (vitamin D3) 1,000 unit PO QAM #30 cap 07/22/20 03/27/21 Rx Tresiba FlexTouch U-100 60 unit SUBCUT HS 11/24/20 03/27/21 History lidocaine 1 patch TRANSDERMAL HS #15 ea 11/26/20 03/27/21 Rx ropinirole [Requip XL] 1 mg PO HS #0 tab 11/26/20 03/27/21 Rx amoxicillin-pot clavulanate 1 tab PO Q12 03/27/21 03/27/21 History dicyclomine 20 mg PO QID PRN 03/27/21 03/27/21 History docusate sodium [Colace] 100 mg PO BID PRN 03/27/21 03/27/21 History dulaglutide [Trulicity] 3 mg SUBCUT WK 03/27/21 03/27/21 History insulin aspart U-100 [Novolog 40 unit SUBCUT WM 03/27/21 03/27/21 History Flexpen U-100 Insulin] levothyroxine 50 mcg PO QAM 03/27/21 03/27/21 History meclizine 12.5 mg PO TID PRN 03/27/21 03/27/21 History nortriptyline [Pamelor] 50 mg PO HS 03/27/21 03/27/21 History Past Med/Surg History Medical History CKD (chronic kidney disease), stage III Depression with anxiety Diabetes Diabetes mellitus, type II Fibromyalgia GERD (gastroesophageal reflux disease) History of DVT (deep vein thrombosis) History of pulmonary embolism s/p zoraida filter HIT (heparin-induced thrombocytopenia) HLD (hyperlipidemia) HTN (hypertension) Hypothyroidism Morbid obesity ELISSA on CPAP Presence of IVC filter RLS (restless legs syndrome) Sepsis Surgical History History of cholecystectomy History of colon resection secondary to R colon perforation, resected treated with colostomy and eventual reversal in 2008, Dr. Lerma History of thyroidectomy, total History of total right knee replacement History of tracheostomy 2010, secondary to acute resp failure secondary to pneumonia, transferred to [facility] Family History Father , age 74 Lung cancer Mother , age 45 Cirrhosis Social History Smoking Status: Former smoker Cigarettes Per Day: 15 pack year hx; Second Hand Exposure: No; Do You Dip or Chew Tobacco: No; Hx Alcohol Use: No Hx Substance Use: No Preferred Language: Greek Communication Ability: Effective Fireworks Assembler Required: No Beliefs That Will Affect Care: None marital status: Single Current Living Situation: Alone How many Children do You have: 0 Other Information That Helps Us Care for You: No Feels Safe at Home: Yes Safety Concerns: Feels Safe At This Time Assistive Devices: Cane Review of Systems Review of Systems: As per HPI, all 10 systems reviewed, all other ROS negative Physical Exam Physical Exam: GENERAL: uncomfortable, morbidly obese, no respiratory distress SKIN: Normal color, warm HEENT: [place] palpebral conjunctivae, no ptosis, dry buccal mucosa, nasal cannula in place NECK : Supple, short neck, no tenderness CHEST : Decreased breath sounds, no tenderness HEART : RRR, no obvious murmurs ABDOMEN: distention, nontender EXTREMITIES : Minimal LE swelling, no LE tenderness, no other conspicuous deformities noted NEUROLOGIC : Coherent, no facial asymmetry, no other gross focality Results & Data Results & Data ([facility]) Vital Signs (Past 12 Hours) Vital Signs Temp Pulse Pulse Resp BP BP Pulse Ox 03/27/21 00:49 85 20 114/81 95 03/26/21 22:00 86 22 116/71 94 03/26/21 20:20 37.0 C 88 20 128/71 96 Laboratory Results Laboratory Results WBC 7.81 K/uL (4.8-10.8) 03/26/21 20:51 RBC 4.31 M/uL (4.2-5.4) 03/26/21 20:51 Hgb 12.9 g/dL (12.0-16.0) 03/26/21 20:51 Hct 40.9 % (37-47) 03/26/21 20:51 MCV 94.9 fL (80-100) 03/26/21 20:51 MCH 29.9 pg (25-34) 03/26/21 20:51 MCHC 31.5 g/dL (32-36) L 03/26/21 20:51 RDW Std Deviation 55.4 fL (36.4-46.3) H 03/26/21 20:51 RDW Coeff of Adolfo 16.0 % (11.5-14.5) H 03/26/21 20:51 Plt Count 188 K/uL (130-400) 03/26/21 20:51 MPV 9.6 fL (7.4-10.4) 03/26/21 20:51 Immature Gran % (Auto) 0.5 % 03/26/21 20:51 Neut % (Auto) 65.8 % 03/26/21 20:51 Lymph % (Auto) 23.2 % 03/26/21 20:51 Dunn % (Auto) 5.0 % 03/26/21 20:51 Eos % (Auto) 5.1 % 03/26/21 20:51 Baso % (Auto) 0.4 % 03/26/21 20:51 Neut # (Auto) 5.14 K/uL (1.4-6.5) 03/26/21 20:51 Lymph # (Auto) 1.81 K/uL (1.2-3.4) 03/26/21 20:51 Dunn # (Auto) 0.39 K/uL (0.11-0.59) 03/26/21 20:51 Eos # (Auto) 0.40 K/uL (0-0.5) 03/26/21 20:51 Baso # (Auto) 0.03 K/uL (0-0.2) 03/26/21 20:51 Immature Gran # (Auto) 0.04 K/uL (0.00-0.02) H 03/26/21 20:51 PT Cancelled 03/26/21 21:51 INR Cancelled 03/26/21 21:51 APTT Cancelled 03/26/21 21:51 PTT Ratio Cancelled 03/26/21 21:51 Sodium 139 mmol/L (136-145) 03/26/21 20:51 Potassium 3.5 mmol/L (3.5-5.1) 03/26/21 20:51 Chloride 103 mmol/L (98-107) 03/26/21 20:51 Carbon Dioxide 31 mmol/L (21-32) 03/26/21 20:51 Anion Gap 5.0 (3-11) 03/26/21 20:51 BUN 23 mg/dl (7-18) H 03/26/21 20:51 Creatinine 1.66 mg/dl (0.6-1.2) H 03/26/21 20:51 Est Cr Clr Drug Dosing 52.1 ml/min 03/26/21 20:51 Est GFR ( Amer) 37.1 ml/min 03/26/21 20:51 Est GFR (Non-Af Amer) 32.0 ml/min 03/26/21 20:51 BUN/Creatinine Ratio 13.9 (10-20) 03/26/21 20:51 Glucose 83 mg/dl (70-99) 03/26/21 20:51 Lactate 0.9 mmol/L (0.4-2.0) 03/27/21 00:37 Calcium 8.7 mg/dl (8.5-10.1) 03/26/21 20:51 Magnesium 1.8 mg/dl (1.8-2.4) 03/27/21 00:39 Total Bilirubin 0.3 mg/dl (0.2-1) 03/26/21 20:51 AST 23 U/L (15-37) 03/26/21 20:51 ALT 23 U/L (12-78) 03/26/21 20:51 Alkaline Phosphatase 69 U/L (45-117) 03/26/21 20:51 Troponin I < 0.015 ng/ml (0-0.045) 03/26/21 20:51 Total Protein 7.5 gm/dl (6.4-8.2) 03/26/21 20:51 Albumin 3.4 gm/dl (3.4-5.0) 03/26/21 20:51 Globulin 4.1 gm/dl (2.5-4.0) H 03/26/21 20:51 Albumin/Globulin Ratio 0.8 (0.9-2) L 03/26/21 20:51 Lipase 109 U/L (73-393) 03/26/21 20:51 Procalcitonin < 0.05 ng/ml (0-0.5) 03/26/21 20:51 TSH 1.870 uIu/ml (0.300-4.500) 03/27/21 00:39 Urine Color Yellow 03/26/21 21:20 Urine Appearance Clear (Clear) 03/26/21 21:20 Urine pH 7.0 (4.5-7.5) 03/26/21 21:20 Ur Specific [place] 1.006 (1.000-1.030) 03/26/21 21:20 Urine Protein Negative (Negative) 03/26/21 21:20 Urine Glucose (UA) Negative (Negative) 03/26/21 21:20 Urine Ketones Negative (Negative) 03/26/21 21:20 Urine Blood Negative (Negative) 03/26/21 21:20 Urine Nitrite Negative (Negative) 03/26/21 21:20 Urine Bilirubin Negative (Negative) 03/26/21 21:20 Urine Urobilinogen Negative (Negative) 03/26/21 21:20 Ur Leukocyte Esterase Negative (Negative) 03/26/21 21:20 COVID-19 Eval Order Covid19 at [facility] 03/26/21 21:20 SARS-CoV-2 (PCR) NEGATIVE (Negative) 03/26/21 21:[address] head initial read: Patchy periventricular and deep white matter low-density throughout the cerebrum similar to previous consistent with chronic small vessel ischemic disease or senescent changes. No evidence of acute large vessel infarct or intracranial hemorrhage. CT abdomen pelvis initial read: Malrotated right kidney with extrarenal pelvis stable in the interval. No urolithiasis or hydronephrosis. No pathologic urinary bladder distention. [place] ventral hernia with protrusion of transverse colon stable in the interval. No strangulation. Hepatosplenomegaly. . Chest x-ray as per my interpretation cardiomegaly, interstitial congestion EKG as per my interpretation : Rate 80, NSR, normal axis, no ischemia Code Status & VTE Plan VTE Prophylaxis Plan VTE Prophylaxis will be ordered: Yes
[2021-03-27 03:02] LABS: Lyme Ab IgG w/WB Rflx Negative (Negative)
[2021-03-27 03:21] LABS: Lyme Ab IgM w/WB Rflx Equivocal (Negative)
[2021-03-27] MEDS ORDERED: GLUCOSE 10 TABS/TUBE PO PRN (05:46)
[2021-03-27] MEDS ORDERED: GLUCOSE 40% GEL 15 GM TUBE PO PRN (05:46)
[2021-03-27] MEDS ORDERED: CARBOHYDRATES FOR HYPOGLYCEMIA PO PRN (05:46)
[2021-03-27] MEDS ORDERED: MAGNESIUM SULFATE / D5W 1 GM/100 ML BAG IV ONE (05:46)
[2021-03-27] MEDS ORDERED: DOCUSATE SODIUM 100 MG CAP PO PRN (05:46)
[2021-03-27] MEDS ORDERED: PROMETHAZINE HCL 12.5 MG in SODIUM CHLORIDE 0.9% 50 ML IV PRN (05:46)
[2021-03-27] MEDS ORDERED: GLUCAGON FOR INJ 1 MG VIAL SQ PRN (05:46)
[2021-03-27] MEDS ORDERED: DEXTROSE 50% 50 ML SYRINGE IV PRN (05:46)
[2021-03-27] MEDS ORDERED: KEFLEX~PHARMACY CONSULT IN PROGRESS PRN (05:59)
[2021-03-27] MEDS ORDERED: CYCLOBENZAPRINE HCL 10 MG TAB PO PRN (06:00)
[2021-03-27] MEDS ORDERED: LORazepam 0.25 MG/0.5 ML VIAL IV PRN (06:03)
[2021-03-27] MEDS: INSULIN ASPART 100 UNITS/ML 3 ML PEN SC SCH ×5 (06:05→20:55)
[2021-03-27] MEDS ORDERED: LORazepam 0.5 MG/1 ML VIAL IV PRN (06:05)
[2021-03-27] MEDS ORDERED: POTASSIUM CHLORIDE 40 MEQ in SODIUM CHLORIDE 0.9% 1000ML 1,000 ML IV ONE (06:15)
[2021-03-27] MEDS: LEVOTHYROXINE SODIUM 50 MCG TABLET PO SCH (07:13)
[2021-03-27] MEDS: LEVOTHYROXINE SODIUM 200 MCG TABLET PO SCH (07:13)
--- NOTE | 2021-03-27 07:16 | CT Scan Report ---
CT SCAN OF THE BRAIN WITHOUT IV CONTRAST CLINICAL HISTORY: Dizziness. Loss of balance. COMPARISON STUDY: CT of the brain dated 11/24/2020. TECHNIQUE: Unenhanced axial CT scan of the brain is performed from the vertex to the skull base. A do se lowering technique was utilized adhering to the principles of ALARA. CT DOSE: 729.78 mGycm FINDINGS: Brain parenchyma: There are age-related involutional changes noting moderate patchy subcortical and periventricular microangiopathic change. There is no hemorrhage, mass effect, or evidence of acute te rritorial ischemia by CT criteria. Mac-white matter differentiation is preserved. No extra-axial flu id collection is seen. Ventricles, sulci, cisterns: Prominent secondary to involutional change. Intracranial vasculature: There is atherosclerotic calcification of the cavernous carotid and vertebr al arteries. Calvarium: Unremarkable. Sinuses and mastoids: The visualized paranasal sinuses are clear. The mastoid air cells are well pneu matized. Orbits: The bony orbits are grossly intact. IMPRESSION: There is no hemorrhage, mass effect, or evidence of acute territorial ischemia by CT [facility]. ACT 112: Negative or not required by law. Electronically signed by: Zachariah Borden M.D. 03/27/2021 7:15 AM
--- NOTE | 2021-03-27 07:16 | XRay Report ---
XR chest 1V portable CLINICAL HISTORY: Atypical chest pain COMPARISON STUDY: 11/24/2020 FINDINGS: The heart is enlarged. There is mild elevation of interstitium. This is potentially related to technical factors given the patient's large body habitus. There is no lobar consolidation. There are no significant pleural effusions[ IMPRESSION: 1. Mild cardiomegaly 2. No evidence of focal pulmonary consolidation 3. Slight prominence of interstitium, a finding possibly related to technical factors given the patie nt's body habitus ACT 112: Negative or not required by law. Electronically signed by: Austin Claire M.D. 03/27/2021 7:15 AM
[2021-03-27] MEDS: traMADol HCL 50 MG TABLET PO PRN ×2 (07:19→16:08)
--- NOTE | 2021-03-27 07:20 | Ultrasound Report ---
US venous doppler LE RT CLINICAL HISTORY: Right lower extremity redness and edema. COMPARISON STUDY: 01/25/2020 FINDINGS: Real-time and color flow Doppler imaging were performed. Flow was seen within the femoral, popliteal and calf veins with no intraluminal thrombus demonstrated. The saphenous vein is patent. Th e examination was difficult from a technical standpoint due to the patient's morbid obesity (BMI 58) IMPRESSION: No evidence of right lower extremity DVT ACT 112: Negative or not required by law. Electronically signed by: Austin Claire M.D. 03/27/2021 7:19 AM
[2021-03-27] MEDS: DULoxetine HCL 30 MG CAP PO SCH (08:17)
[2021-03-27] MEDS: DULoxetine HCL 60 MG CAP PO SCH (08:17)
[2021-03-27] MEDS: GABAPENTIN 300 MG CAP PO SCH ×3 (08:17→20:49)
[2021-03-27] MEDS: cephALEXin 500 MG CAP PO SCH ×2 (08:17→20:49)
[2021-03-27] MEDS: COLCHICINE 0.6 MG TAB PO SCH (08:17)
--- NOTE | 2021-03-27 08:20 | CT Scan Report ---
CT SCAN OF THE ABDOMEN AND PELVIS WITHOUT CONTRAST CLINICAL HISTORY: Abdominal pain. Urinary tract infection. COMPARISON STUDY: 07/19/2020 TECHNIQUE: CT scan of the abdomen and pelvis was performed from the lung bases to the proximal femurs . Images are reviewed in the axial, sagittal, and coronal planes. IV contrast was not administered fo r this examination. A dose lowering technique was utilized adhering to the principles of ALARA. CT DOSE: 1353.86 mGycm FINDINGS: Lower chest: There is mild interlobular septal edema. There is a slight mosaic attenuation pattern. T here are no significant pleural effusions. Liver: There is mild hepatic steatosis. The liver is enlarged. No focal masses are visualized in this noncontrast study. There is no ductal dilatation Gallbladder: Surgically absent Spleen: The spleen is enlarged measuring 14.5 cm Pancreas: Unremarkable. Adrenal glands: There is a 15 mm left adrenal gland adenoma Kidneys: There is persistent dilatation of the right renal pelvis suggestive of a chronic UPJ type ob struction. No renal, ureteral, or bladder calculi are visualized Bowel: There are no transition zones indicate bowel obstruction. There is no evidence of acute divert iculitis. The appendix is not visualized with certainty. There are no findings to indicate acute appe ndicitis. Peritoneum: There is no intraperitoneal free air or abdominal ascites. There are multiple abdominal w all hernias. There is no current evidence of bowel obstruction. Vasculature: There is no evidence of abdominal aortic aneurysm. An IVC filter is visualized. Adenopathy: None. Pelvic viscera: The bladder, and pelvic viscera are unremarkable. Skeletal structures: No destructive osseous lesions are seen. IMPRESSION: 1. No evidence of bowel obstruction. No evidence of free air 2. No evidence of acute diverticulitis. 3. The appendix is not visualized with certainty. There are however no findings to indicate acute isael endicitis 4. Multiple abdominal wall hernias, several which contains a small amount of bowel. There is no curre nt evidence of obstruction. 5. Stable right renal pelvic dilatation, likely secondary to a mild chronic UPJ type obstruction 6. Hepatic steatosis and hepatosplenomegaly. ACT 112: Negative or not required by law. Electronically signed by: Austin Claire M.D. 03/27/2021 8:19 AM
[2021-03-27] MEDS: FONDAPARINUX 2.5 MG/0.5 ML SYR SQ SCH (08:23)
[2021-03-27] MEDS: MIDODRINE HCL 2.5 MG TAB PO SCH ×3 (08:33→17:47)
[2021-03-27] MEDS: METOPROLOL TARTRATE 25 MG TAB PO SCH ×2 (08:33→20:49)
[2021-03-27 08:51] LABS: Estimated Average Glucose 200 mg/dl; Hemoglobin A1C 8.6 % (4.5-5.6)
[2021-03-27] MEDS ORDERED: INSULIN GLARGINE SOLOSTAR 100 UNITS/ML 3 ML PEN SC SCH ×4 (09:00→21:00)
[2021-03-27] MEDS ORDERED: clonazePAM 0.5 MG TAB PO SCH (09:00)
[2021-03-27] MEDS: ACETAMINOPHEN 325 MG TAB PO PRN (11:01)
--- NOTE | 2021-03-27 12:39 | Electrocardiogram Report ---
Test Reason : Blood Pressure : / mmHG Vent. Rate : 082 BPM Atrial Rate : 082 BPM P-R Int : 178 ms QRS Dur : 080 ms QT Int : 390 ms P-R-T Axes : 060 038 042 degrees QTc Int : 455 ms Normal sinus rhythm Low voltage QRS Cannot rule out Anterior infarct , age undetermined Abnormal ECG When compared with ECG of 24-NOV-2020 10:24, No significant change was found Confirmed by Dean Reid ([id number]) on 03/27/2021 12:38:49 PM Referred By: REFERRED SELF Confirmed By:Dean Reid
--- NOTE | 2021-03-27 12:51 | Magnetic Resonance Report ---
MRI OF THE BRAIN WITHOUT CONTRAST CLINICAL HISTORY: dizziness, off balance COMPARISON STUDY: Head CT March 27, 2021 at 4:10 AM. TECHNIQUE: Utilizing a 1.5 Melony magnet and dedicated coil, multiplanar, multiecho imaging of the bra in was performed without IV contrast. FINDINGS: This exam is significantly compromised by motion artifact however the diffusion-weighted se quence is diagnostic. There are no foci of restricted diffusion to suggest acute infarct. No acute in tracranial hemorrhage, midline shift or mass effect is present. Ventricular system is unremarkable. B preethi cisterns are patent. There are no extra-axial collections. White matter T2 hyperintense foci sug gest moderate small vessel disease. Flow-voids for the major intracranial vessels are grossly present . IMPRESSION: 1. No evidence for acute infarction. 2. Exam moderately compromised by motion artifact. No acute intracranial findings identified. 3. White matter T2 hyperintense foci suggestive of moderate small vessel disease. ACT 112: Negative or not required by law. Electronically signed by: David Lugo M.D. 03/27/2021 12:49 PM
[2021-03-27] MEDS ORDERED: clonazePAM 0.5 MG TAB PO PRN (13:31)
[2021-03-27 14:28] LABS: BUN Creatinine Ratio 11.8 (10-20); Calcium 8.7 mg/dl (8.5-10.1); Creatinine Clr Calc Pharmacy 48.1 ml/min; Est GFR (African American) 34.6 ml/min; Est GFR (Non-African American) 29.8 ml/min; Potassium 4.3 mmol/L (3.5-5.1)
--- NOTE | 2021-03-27 18:37 | Hospitalist Progress Note ---
Date of Service March 27, 2021 Assessment & Plan (1) Dizziness: Present on admission with Dizziness Possible related to medication side effect (Polypharmacy) vs orthostatic hypotension CT head showed no hemorrhage, mass effect, or evidence of acute territorial ischemia MRI head showed no evidence for acute infarction. No focal neurological deficit on exam Continue PT/OT Fall precaution Hypotension BP was 96/52 Was started on midodrine will discontinue due to elevated blood pressure Recent UTI (pansensitive Klebsiella pneumonia) status post incomplete courses of Augmentin and Bactrim Received ceftriaxone on admission Currently on Keflex twice daily Diabetes mellitus, type II: uncontrolled DM with most recent Hba1c 8.6 on 03/27 continue to hold oral dm meds Continue Lantus and novolog sliding scale while inpatient stable CHF (congestive heart failure): "Check lipid Will resume lasix Monitor volume status closely stable Fibromyalgia: Continue Tramadol PRN, gabapentin, Cymbalta CKD (chronic kidney disease), stage III: H/o CKD III/IV - baseline Cr ~1.9 Creatinine 1.7 today Avoid nephrotoxic agents when able stable HTN (hypertension): Low BP on admission continue Lopressor with hold parameters Will resume lasix Depression with anxiety: Continue Cymbalta. History of pulmonary embolism: S/p IVC filter placement RLS (restless legs syndrome): On Requip 1mg HS home dose ELISSA on CPAP: Obesity hypoventilation syndrome: CPAP HS DVT px on Fondaparinux CODE STATUS full code Admission and Anticipated Discharge Date Admission Date: March 27, 2021 Subjective Patient was seen and examined for follow-up of dizziness Lying in bed with no distress watching TV Patient said that she is having pain all over her body due to her fibromyalgia She said that she is not dizzy but when she walked this morning with therapy she was off balance Denies any chest pain, palpitation, dizziness, shortness of breath. Review of Systems Review of Systems: All systems reviewed & are unremarkable except as noted in Subjective Physical Exam Physical Exam: General- No acute distress Head- atraumatic Eyes- PERRL, EOMI, ENT- oropharynx clear Neck- supple, no JVD Lungs- clear to auscultation Heart- regular rhythm; no murmur Abdomen- normal bowel sounds, soft, nontender Extremities- no calf tenderness, left upper extremity place in sling Neuro- alert, oriented x 3; PERRL, EOMI; no facial palsy; no dysarthria Skin- warm & dry Results & Data Results & Data ([facility]) Vital Signs (Past 12 Hours) Vital Signs Temp Pulse Pulse Resp BP Pulse Ox Pulse Ox 03/27/21 17:46 155/72 H 03/27/21 16:26 86 03/27/21 12:18 36.9 C 80 22 146/80 H 90 03/27/21 11:57 92 03/27/21 08:31 36.4 C L 92 H 18 172/74 H 93 03/27/21 08:24 36.6 C 78 20 158/67 H 93 03/27/21 08:00 92 H
[2021-03-27] MEDS ORDERED: PANTOprazole 40 MG TAB PO SCH (21:00)
[2021-03-27] MEDS ORDERED: traZODone HCL 50 MG TAB PO SCH (21:00)
[2021-03-27] MEDS ORDERED: LIDOCAINE 5% 1 PATCH TD SCH (21:00)
[2021-03-27] MEDS ORDERED: NORTRIPTYLINE HCL 25 MG CAP PO SCH (21:00)
[2021-03-28] MEDS: LEVOTHYROXINE SODIUM 50 MCG TABLET PO SCH (05:53)
[2021-03-28] MEDS: LEVOTHYROXINE SODIUM 200 MCG TABLET PO SCH (05:53)
[2021-03-28] MEDS: ACETAMINOPHEN 325 MG TAB PO PRN (05:55)
[2021-03-28 06:58] LABS: Basophils # (auto) 0.03 K/uL (0-0.2); Basophils % (auto) 0.3 %; Eosinophils # (auto) 0.46 K/uL (0-0.5); Eosinophils % (auto) 5.2 %; Hematocrit (blood only) 42.7 % (37-47); Hemoglobin 13.3 g/dL (12.0-16.0); Immature Granulocytes # (auto) 0.04 K/uL (0.00-0.02); Immature Granulocytes % (auto) 0.4 %; Lymphocytes # (auto) 2.22 K/uL (1.2-3.4); Lymphocytes % (auto) 24.9 %; Mean Corpuscular Hemoglobin 30.1 pg (25-34); Mean Corpuscular Hgb Conc 31.1 g/dL (32-36); Mean Corpuscular Volume 96.6 fL (80-100); Mean Platelet Volume 10.3 fL (7.4-10.4); Monocytes # (auto) 0.72 K/uL (0.11-0.59); Monocytes % (auto) 8.1 %; Neutrophils # (auto) 5.46 K/uL (1.4-6.5); Neutrophils % (auto) 61.1 %; Platelet Count 250 K/uL (130-400); RDW Coefficient of Variation 16.4 % (11.5-14.5); RDW Standard Deviation 58.1 fL (36.4-46.3); Red Blood Count 4.42 M/uL (4.2-5.4); White Blood Count 8.93 K/uL (4.8-10.8)
[2021-03-28 07:45] LABS: BUN Creatinine Ratio 12.1 (10-20); Calcium 9.2 mg/dl (8.5-10.1); Creatinine Clr Calc Pharmacy 53.3 ml/min; Est GFR (African American) 39.1 ml/min; Est GFR (Non-African American) 33.7 ml/min
[2021-03-28] MEDS: FONDAPARINUX 2.5 MG/0.5 ML SYR SQ SCH (08:47)
[2021-03-28] MEDS: cephALEXin 500 MG CAP PO SCH (08:47)
[2021-03-28] MEDS: GABAPENTIN 300 MG CAP PO SCH ×2 (08:47→12:44)
[2021-03-28] MEDS: COLCHICINE 0.6 MG TAB PO SCH (08:48)
[2021-03-28] MEDS: METOPROLOL TARTRATE 25 MG TAB PO SCH (08:48)
[2021-03-28] MEDS: DULoxetine HCL 60 MG CAP PO SCH (08:48)
[2021-03-28] MEDS: DULoxetine HCL 30 MG CAP PO SCH (08:48)
[2021-03-28] MEDS: INSULIN ASPART 100 UNITS/ML 3 ML PEN SC SCH ×2 (08:51→12:44)
[2021-03-28] MEDS: traMADol HCL 50 MG TABLET PO PRN (08:56)
--- NOTE | 2021-03-28 15:19 | Discharge Summary ---
Date of Service March 28, 2021 Admission HPI Per Admitting Provider History obtained from patient and records. Medical history significant for chronic diastolic heart failure (70%, TTE 2020), hypertension, hyperlipidemia, DM2 insulin requiring, CRI (baseline creatinine 1.6), history PE DVT status post IVC filter placement secondary to heparin- induced thrombocytopenia, chronic respiratory failure on home O2 as per records, ELISSA on CPAP, past tobacco abuse, fibromyalgia, restless legs syndrome. Last confinement November 2020 for syncope attributed to orthostatic hypotension and polypharmacy. Patient not feeling well the last few weeks. Dizziness described as unsteadiness and feeling off balance as per patient. Walking into poe. Not spinning as per patient no headache as per patient. Patient denies chest pain, S OB. Dysuria symptoms without abdominal pain. Appetite not too good. Patient seen at PCP's office last week. UA grew pansensitive Klebsiella. Patient prescribed Augmentin which she was not able to tolerate. Augmentin later switched to Bactrim 3 days ago. Patient consulted ER for worsening dizziness symptoms and achiness/cramping all over. 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 Admission Exam Per Admitting Provider GENERAL: uncomfortable, morbidly obese, no respiratory distress SKIN: Normal color, warm HEENT: Alvarado palpebral conjunctivae, no ptosis, dry buccal mucosa, nasal cannula in place NECK : Supple, short neck, no tenderness CHEST : Decreased breath sounds, no tenderness HEART : RRR, no obvious murmurs ABDOMEN: distention, nontender EXTREMITIES : Minimal LE swelling, no LE tenderness, no other conspicuous deformities noted NEUROLOGIC : Coherent, no facial asymmetry, no other gross focality Principal Diagnosis Dizziness: Recent UTI Diabetes mellitus, type II: CHF (congestive heart failure): Fibromyalgia: CKD (chronic kidney disease), stage III: HTN (hypertension): Depression with anxiety: History of pulmonary embolism: RLS (restless legs syndrome): ELISSA on CPAP: Discharge Exam General- No acute distress Head- atraumatic Eyes- PERRL, EOMI, ENT- oropharynx clear Neck- supple, no JVD Lungs- clear to auscultation Heart- regular rhythm; no murmur Abdomen- normal bowel sounds, soft, nontender Extremities- no calf tenderness, left upper extremity place in sling Neuro- alert, oriented x 3; PERRL, EOMI; no facial palsy; no dysarthria Skin- warm & dry Discharge Data Allergies Allergy/AdvReac Type Severity Reaction Status Date / Time morphine Allergy Severe VIOLENT Verified 03/27/21 00:53 REACTION-"ALMOST " SWELLING tetanus toxoid, adsorbed Allergy Intermediate PASSED OUT Verified 03/27/21 00:53 AND GOT SICK WHEN A CHILD acetaminophen [From Vicodin] AdvReac Intermediate sleepiness Verified 03/27/21 00:53 codeine AdvReac Intermediate Hallucinati Verified 03/27/21 00:53 ons empagliflozin AdvReac Intermediate YEAST Verified 03/27/21 00:53 [From Jardiance] INFECTIONS heparin AdvReac Intermediate HIT; FLUID Verified 03/27/21 00:53 IN LUNGS hydrocodone [From Vicodin] AdvReac Intermediate sleepiness Verified 03/27/21 00:53 bupropion [From Wellbutrin] AdvReac Recurrent Verified 03/27/21 09:24 falls as per patient Consultations 03/27/21 00:40 ED Decision to Admit Stat Ordered Studies 03/26/21 20:50 CT abd pelvis wo con Urgent US venous doppler LE RT Urgent 03/27/21 02:07 CT head/brain wo con Urgent 03/27/21 05:17 MR brain wo con Routine MRI OF THE BRAIN WITHOUT CONTRAST CLINICAL HISTORY: dizziness, off balance COMPARISON STUDY: Head CT March 27, 2021 at 4:10 AM. TECHNIQUE: Utilizing a 1.5 Melony magnet and dedicated coil, multiplanar, multiecho imaging of the brain was performed without IV contrast. FINDINGS: This exam is significantly compromised by motion artifact however the diffusion-weighted sequence is diagnostic. There are no foci of restricted diffusion to suggest acute infarct. No acute intracranial hemorrhage, midline shift or mass effect is present. Ventricular system is unremarkable. Basal cisterns are patent. There are no extra-axial collections. White matter T2 hyperintense foci suggest moderate small vessel disease. Flow-voids for the major intracranial vessels are grossly present. IMPRESSION: 1. No evidence for acute infarction. 2. Exam moderately compromised by motion artifact. No acute intracranial findings identified. 3. White matter T2 hyperintense foci suggestive of moderate small vessel disease. ACT 112: Negative or not required by law. Electronically signed by: David Lugo M.D. 03/27/2021 12:49 PM Dictated: 03/27/21 1246Transcribed: 03/27/[address] SCAN OF THE BRAIN WITHOUT IV CONTRAST CLINICAL HISTORY: Dizziness. Loss of balance. COMPARISON STUDY: CT of the brain dated 11/24/2020. TECHNIQUE: Unenhanced axial CT scan of the brain is performed from the vertex to the skull base. A dose lowering technique was utilized adhering to the principles of ALARA. CT DOSE: 729.78 mGycm FINDINGS: Brain parenchyma: There are age-related involutional changes noting moderate patchy subcortical and periventricular microangiopathic change. There is no hemorrhage, mass effect, or evidence of acute territorial ischemia by CT criteria. Mac-white matter differentiation is preserved. No extra-axial fluid collection is seen. Ventricles, sulci, cisterns: Prominent secondary to involutional change. Intracranial vasculature: There is atherosclerotic calcification of the cavernous carotid and vertebral arteries. Calvarium: Unremarkable. Sinuses and mastoids: The visualized paranasal sinuses are clear. The mastoid air cells are well pneumatized. Orbits: The bony orbits are grossly intact. IMPRESSION: There is no hemorrhage, mass effect, or evidence of acute territorial ischemia by CT criteria. ACT 112: Negative or not required by law. Electronically signed by: Zachariah Borden M.D. 03/27/2021 7:15 AM Dictated: 03/27/2113Transcribed: 03/27/2113 US venous doppler LE RT CLINICAL HISTORY: Right lower extremity redness and edema. COMPARISON STUDY: 01/25/2020 FINDINGS: Real-time and color flow Doppler imaging were performed. Flow was seen within the femoral, popliteal and calf veins with no intraluminal thrombus demonstrated. The saphenous vein is patent. The examination was difficult from a technical standpoint due to the patient's morbid obesity (BMI 58) IMPRESSION: No evidence of right lower extremity DVT ACT 112: Negative or not required by law. Electronically signed by: Austin Claire M.D. 03/27/2021 7:19 AM Dictated: 03/27/2118Transcribed: 03/27/2118 CT SCAN OF THE ABDOMEN AND PELVIS WITHOUT CONTRAST CLINICAL HISTORY: Abdominal pain. Urinary tract infection. COMPARISON STUDY: 07/19/2020 TECHNIQUE: CT scan of the abdomen and pelvis was performed from the lung bases to the proximal femurs. Images are reviewed in the axial, sagittal, and coronal planes. IV contrast was not administered for this examination. A dose lowering technique was utilized adhering to the principles of ALARA. CT DOSE: 1353.86 mGycm FINDINGS: Lower chest: There is mild interlobular septal edema. There is a slight mosaic attenuation pattern. There are no significant pleural effusions. Liver: There is mild hepatic steatosis. The liver is enlarged. No focal masses are visualized in this noncontrast study. There is no ductal dilatation Gallbladder: Surgically absent Spleen: The spleen is enlarged measuring 14.5 cm Pancreas: Unremarkable. Adrenal glands: There is a 15 mm left adrenal gland adenoma Kidneys: There is persistent dilatation of the right renal pelvis suggestive of a chronic UPJ type obstruction. No renal, ureteral, or bladder calculi are visualized Bowel: There are no transition zones indicate bowel obstruction. There is no evidence of acute diverticulitis. The appendix is not visualized with certainty. There are no findings to indicate acute appendicitis. Peritoneum: There is no intraperitoneal free air or abdominal ascites. There are multiple abdominal wall hernias. There is no current evidence of bowel obstruction. Vasculature: There is no evidence of abdominal aortic aneurysm. An IVC filter is visualized. Adenopathy: None. Pelvic viscera: The bladder, and pelvic viscera are unremarkable. Skeletal structures: No destructive osseous lesions are seen. IMPRESSION: 1. No evidence of bowel obstruction. No evidence of free air 2. No evidence of acute diverticulitis. 3. The appendix is not visualized with certainty. There are however no findings to indicate acute appendicitis 4. Multiple abdominal wall hernias, several which contains a small amount of bowel. There is no current evidence of obstruction. 5. Stable right renal pelvic dilatation, likely secondary to a mild chronic UPJ type obstruction 6. Hepatic steatosis and hepatosplenomegaly. ACT 112: Negative or not required by law. Electronically signed by: Austin Claire M.D. 03/27/2021 8:19 AM Dictated: 03/27/21812Transcribed: 03/27/21812 XR chest 1V portable CLINICAL HISTORY: Atypical chest pain COMPARISON STUDY: 11/24/2020 FINDINGS: The heart is enlarged. There is mild elevation of interstitium. This is potentially related to technical factors given the patient's large body habitus. There is no lobar consolidation. There are no significant pleural eff usions[ IMPRESSION: 1. Mild cardiomegaly 2. No evidence of focal pulmonary consolidation 3. Slight prominence of interstitium, a finding possibly related to technical factors given the patient's body habitus ACT 112: Negative or not required by law. Electronically signed by: Austin Claire M.D. 03/27/2021 7:15 AM Dictated: 03/27/21713Transcribed: 03/27/21713 Hospital Course (1) Dizziness: Present on admission with Dizziness Possible related to medication side effect (Polypharmacy) vs orthostatic hypotension CT head showed no hemorrhage, mass effect, or evidence of acute territorial ischemia MRI head showed no evidence for acute infarction. No focal neurological deficit on exam Continue PT/OT Fall precaution Hypotension BP was 96/52 Was started on midodrine will discontinue due to elevated blood pressure Recent UTI (pansensitive Klebsiella pneumonia) status post incomplete courses of Augmentin and Bactrim Received ceftriaxone on admission Currently on Keflex twice daily Diabetes mellitus, type II: uncontrolled DM with most recent Hba1c 8.6 on 03/27 continue to hold oral dm meds Continue Lantus and novolog sliding scale while inpatient stable CHF (congestive heart failure): "Check lipid Will resume lasix Monitor volume status closely stable Fibromyalgia: Continue Tramadol PRN, gabapentin, Cymbalta CKD (chronic kidney disease), stage III: H/o CKD III/IV - baseline Cr ~1.9 Creatinine 1.7 today Avoid nephrotoxic agents when able stable HTN (hypertension): Low BP on admission continue Lopressor with hold parameters Will resume lasix Depression with anxiety: Continue Cymbalta. History of pulmonary embolism: S/p IVC filter placement RLS (restless legs syndrome): On Requip 1mg HS home dose ELISSA on CPAP: Obesity hypoventilation syndrome: CPAP HS DVT px on Fondaparinux CODE STATUS full code Total Time Total Time Spent Total Time Spent (In Minutes): 35 minutes Total Time Includes: Examination of the Patient, Discharge Planning, Medication Reconciliation, Communication With Other Providers and Other Discharge Plan Discharge Items Patient Disposition: Home - Home Health Services Reason For Visit: DIZZINESS Discharge Diagnosis: Dizziness: Recent UTI Diabetes mellitus, type II: CHF (congestive heart failure): Fibromyalgia: CKD (chronic kidney disease), stage III: HTN (hypertension): Depression with anxiety: History of pulmonary embolism: RLS (restless legs syndrome): ELISSA on CPAP: Activity: Resume your previous activity Non-emergency contact: Primary Care Provider Call non-emergency contact if: you have any medication questions and your symptoms worsen Follow-up/Referrals: Kevin Whiteside DO [Primary Care Provider] - Diet: Carb Consistent or DM2 Addtl Attending Provider Instructions: Follow up with your primary care provider within 1 week Continue oxygen supplement Complete the course of the antibiotic with Keflex Fall precaution Pending Studies at Discharge: No Stand-Alone Forms: My SubC Control, Smoking Cessation Medications and DC Order Prescriptions: Continued levothyroxine 200 mcg Tablet 200 mcg PO QAM RF: 0 metoprolol tartrate 25 mg Tablet 12.5 mg PO BID RF: 0 omeprazole 20 mg Capsule,Delayed Release(Dr/Ec) 20 mg PO HS RF: 0 gabapentin 300 mg Capsule 300 mg PO TID RF: 0 furosemide [Lasix] 40 mg tablet 20 mg PO BID RF: 0 trazodone 50 mg tablet 50 mg PO HS RF: 0 magnesium oxide 400 mg (241.3 mg magnesium) Tablet 400 mg PO DAILY RF: 0 insulin aspart U-100 [Novolog U-100 Insulin aspart] 100 unit/mL solution 0 unit subcut ACHS RF: 0 colchicine 0.6 mg Tablet 0.3 mg PO DAILY RF: 0 duloxetine 30 mg Capsule,Delayed Release(Dr/Ec) 30 mg PO DAILY RF: 0 Tresiba FlexTouch U-100 100 unit/mL (3 mL) Insulin Pen 60 unit SUBCUT HS RF: 0 ropinirole [Requip XL] 2 mg Tablet Extended Release 24 Hr 1 mg PO HS Qty: 0 RF: 0 lidocaine 5 % Adhesive Patch,Medicated 1 patch transdermal HS Qty: 15 RF: 0 cyclobenzaprine 10 mg Tablet 10 mg PO HS PRN (Reason: Muscle Spasm) RF: 0 duloxetine 60 mg capsule,delayed release(DR/EC) 60 mg PO QAM RF: 0 potassium chloride 10 mEq tablet,ER particles/crystals 10 meq PO Q OTHER DAY RF: 0 tramadol 50 mg tablet 50 mg PO Q8H PRN (Reason: Pain) RF: 0 cholecalciferol (vitamin D3) 25 mcg (1,000 unit) Capsule 1,000 unit PO QAM Qty: 30 RF: 1 insulin aspart U-100 [Novolog Flexpen U-100 Insulin] 100 unit/mL (3 mL) insulin pen 40 unit SUBCUT WM RF: 0 Trulicity 3 mg/0.5 mL pen injector 3 mg SUBCUT WK RF: 0 dicyclomine 20 mg tablet 20 mg PO QID PRN (Reason: abdominal pain) RF: 0 nortriptyline [Pamelor] 50 mg capsule 50 mg PO HS RF: 0 levothyroxine 50 mcg tablet 50 mcg PO QAM RF: 0 docusate sodium [Colace] 100 mg capsule 100 mg PO BID PRN (Reason: Constipation) RF: 0 meclizine 12.5 mg tablet 12.5 mg PO TID PRN (Reason: Dizziness) RF: 0 Changed clonazepam 0.5 mg Tablet 0.5 mg PO BID PRN (Reason: anxiety) Qty: 0 RF: 0 Discontinued amoxicillin-pot clavulanate 875-125 mg tablet 1 tab PO Q12 RF: 0 Discharge Orders: Discharge Order (Routine); Ordered 03/28/21 Ordered By: Vidal Loya/Other Patient Handouts: Managing Type 2 Diabetes, A1C Admission Data Admit Date/Time: 03/27/21 02:11 Attending Provider: Vidal De Leon Admit Provider: Moncho Laurent Primary Care Provider: Kevin Whiteside Other Providers: Moncho aLurent Other Interventions: Discharge Summary Assessment (RN) Last Done: 03/28/21 13:32
[2021-03-28 15:37] VITALS: BP 118/61; TEMP 97.9; O2SAT 95
[2021-03-28 15:46] VITALS: PULSE 84
[2021-04-02 07:07] LABS: 18KDIGG Band NON-REACTIVE; 23KDIGG Band NON-REACTIVE; 23KDIGM Band NON-REACTIVE; 28KDIGG Band NON-REACTIVE; 30KDIGG Band NON-REACTIVE; 39KDIGG Band REACTIVE; 39KDIGM Band REACTIVE; 41KDIGG Band REACTIVE; 41KDIGM Band NON-REACTIVE; 45KDIGG Band NON-REACTIVE; 58KDIGG Band REACTIVE; 66KDIGG Band NON-REACTIVE; 93KDIGG Band REACTIVE; Lyme Antibodies, WB IgG NEGATIVE (NEGATIVE); Lyme Antibodies, WB IgM NEGATIVE (NEGATIVE)
== END 2021-03-28 16:25 | disposition home health service (06) ==
LOC: 2N 20:18 → ED 20:18 → 2N 03-27 03:50 → EDINP 03-27 08:23 → 2N 03-27 08:27

== ENCOUNTER 2021-04-01 19:47 | Inpatient (IN) ==
[2021-04-01] MEDS ORDERED: SODIUM CHLORIDE 0.9% 1000ML 1,000 ML IV ONE (20:32)
[2021-04-01] MEDS ORDERED: MIDODRINE HCL 10 MG TAB PO STA (20:37)
[2021-04-01 21:10] LABS: Basophils # (auto) 0.03 K/uL (0-0.2); Basophils % (auto) 0.3 %; Eosinophils # (auto) 0.46 K/uL (0-0.5); Eosinophils % (auto) 4.7 %; Hematocrit (blood only) 45.2 % (37-47); Immature Granulocytes # (auto) 0.04 K/uL (0.00-0.02); Immature Granulocytes % (auto) 0.4 %; Lymphocytes # (auto) 1.94 K/uL (1.2-3.4); Lymphocytes % (auto) 19.8 %; Mean Corpuscular Hemoglobin 30.8 pg (25-34); Mean Corpuscular Volume 99.3 fL (80-100); Mean Platelet Volume 9.6 fL (7.4-10.4); Monocytes # (auto) 0.79 K/uL (0.11-0.59); Neutrophils # (auto) 6.56 K/uL (1.4-6.5); Neutrophils % (auto) 66.8 %; Platelet Count 311 K/uL (130-400); RDW Coefficient of Variation 16.1 % (11.5-14.5); RDW Standard Deviation 57.9 fL (36.4-46.3); Red Blood Count 4.55 M/uL (4.2-5.4); White Blood Count 9.82 K/uL (4.8-10.8)
[2021-04-01 21:49] LABS: Albumin Globulin Ratio 0.8 (0.9-2); Albumin Level 3.5 gm/dl (3.4-5.0); BUN Creatinine Ratio 12.1 (10-20); Bilirubin,Total 0.4 mg/dl (0.2-1); Creatinine Clr Calc Pharmacy 47.9 ml/min; Est GFR (African American) 34.3 ml/min; Est GFR (Non-African American) 29.6 ml/min; Globulin 4.5 gm/dl (2.5-4.0); Thyroid Stimulating Hormone 0.811 uIu/ml (0.300-4.500)
[2021-04-02] MEDS ORDERED: MECLIZINE 12.5 MG TAB PO PRN (01:44)
[2021-04-02] MEDS ORDERED: POLYETHYLENE (MIRALAX) 17 GM PACK PO PRN (01:44)
[2021-04-02] MEDS ORDERED: DICYCLOMINE HCL 20 MG TAB PO PRN (01:44)
[2021-04-02] MEDS ORDERED: SODIUM CHLORIDE 0.9% 1000ML 1,000 ML IV SCH (01:44)
[2021-04-02] MEDS ORDERED: NITROGLYCERIN SL 0.4 MG/TAB TAB SL PRN (01:44)
[2021-04-02 02:08] LABS: Appearance Urine Clear (Clear); Bilirubin Urine Negative (Negative); Blood Urine Negative (Negative); Color Urine Yellow; Glucose Urine UA Negative (Negative); Ketones Urine Negative (Negative); Leukocyte Esterase Urine Negative (Negative); Nitrite Urine Negative (Negative); Protein Urine Negative (Negative); Specific Gravity Urine 1.011 (1.000-1.030); Urobilinogen Urine Negative (Negative)
[2021-04-02] MEDS ORDERED: DEXTROSE 50% 50 ML SYRINGE IV PRN (02:45)
[2021-04-02] MEDS ORDERED: GLUCOSE 40% GEL 15 GM TUBE PO PRN (02:45)
[2021-04-02] MEDS ORDERED: CARBOHYDRATES FOR HYPOGLYCEMIA PO PRN (02:45)
[2021-04-02] MEDS ORDERED: GLUCOSE 10 TABS/TUBE PO PRN (02:45)
[2021-04-02] MEDS ORDERED: GLUCAGON FOR INJ 1 MG VIAL IM PRN (02:45)
[2021-04-02] MEDS ORDERED: PHARMACY GLYCEMIC MGMT CONSULT PRN (03:09)
[2021-04-02] MEDS: CYCLOBENZAPRINE HCL 10 MG TAB PO PRN ×2 (03:33→23:41)
--- NOTE | 2021-04-02 04:05 | History and Physical Report ---
DATE OF ADMISSION: 04/02/2021. CHIEF COMPLAINT: Fall, hypotension. HISTORY OF PRESENT ILLNESS: A 65-year-old female with past medical history significant for type 2 diabetes; hyperlipidemia; postsurgical hypothyroidism; hyperparathyroidism secondary to renal disease; obstructive sleep apnea, on CPAP at bedtime; history of PE, DVT, status post IVC filter, secondary to heparin- induced thrombocytopenia; chronic respiratory failure on home oxygen; history of tobacco abuse; fibromyalgia; restless legs syndrome; hypertension; chronic kidney disease stage III; chronic diastolic CHF; history of vasculitis; morbid obesity; GERD; osteoarthritis; lumbar radiculopathy; mild episode of depression, generalized anxiety disorder; statin intolerance; abnormality of gait. The patient lives at home alone, ambulates with a cane and walker. Brother lives close by. Eats regular food. She was recently in the hospital for dizziness. Workup with a CT head and MRI head was unremarkable, thought to be from polypharmacy and she was also hypotensive, was started on midodrine, but midodrine was stopped because of elevated blood pressure. She was also recently treated for UTI. Currently comes because of fall at home. The patient says her friend came visiting her. She was ambulating with a walker and she went to get a glass of water, when her legs felt weak and she started giving away and she could not hold on the walker and she fell on her back and then hit her head. She could not get up and ambulance was called in and was brought in here. Her imaging studies of CT of the head on preliminary report was no acute findings. The patient was hypotensive in the ER even after a fluid bolus and a dose of midodrine. Blood pressure was still in the 80s and low 90s and she was again having ambulatory dysfunction, so we were called for admission. Currently, denies any headache, no blurred visions, no earache, no runny nose, no sore throat, no cough, no fever, no chills. Says appetite is okay. No difficulty swallowing. No chest pain, no shortness of breath, no nausea, no vomiting, no abdominal pain. Somewhat constipated. Normal bladder movements. She says her blood pressure always runs low. ALLERGIES: MORPHINE, TETANUS TOXOID, ACETAMINOPHEN, CODEINE, JARDIANCE, HEPARIN, VICODIN, WELLBUTRIN. PAST MEDICAL HISTORY: As mentioned above. PAST SURGICAL HISTORY: Right knee arthroplasty, colonoscopy, tracheostomy, lumbar spine injection, left knee cartilage arthroscopy, history of gastrostomy tube, history of thyroidectomy, cholecystectomy, repair of recurrent incisional hernia, revision of colostomy, sacroiliac joint injection, suture of large intestine with colostomy, IVC filter placement. MEDICATIONS: The patient is on vitamin D 1000 units p.o. a.m., Klonopin 0.5 mg p.o. b.i.d. p.r.n., colchicine 0.3 mg p.o. daily, cyclobenzaprine 10 mg p.o. at bedtime p.r.n., dicyclomine 20 mg p.o. q.i.d. p.r.n., Colace 100 mg p.o. b.i.d. p.r.n., duloxetine 90 mg p.o. a.m., Lasix 20 mg p.o. b.i.d., gabapentin 300 mg p.o. t.i.d., NovoLog FlexPen 40 units subcutaneous with meals, levothyroxine 250 mcg p.o. daily, lidocaine 1 patch transdermal at bedtime, magnesium oxide 400 mg p.o. daily, meclizine 12.5 mg p.o. t.i.d. p.r.n., metoprolol tartrate 12.5 mg p.o. b.i.d., nortriptyline 50 mg p.o. at bedtime, omeprazole 20 mg p.o. at bedtime, potassium chloride 10 mEq p.o. every other day, ReQuip 1 mg p.o. at bedtime, tramadol 50 mg p.o. q. 8 hours p.r.n., trazodone 50 mg p.o. at bedtime, Tresiba 60 units subcutaneous at bedtime, Trulicity 3 mg subcutaneous weekly. FAMILY HISTORY: Significant for father had lung cancer, mother had liver cancer, brother has heart disorder, paternal grandfather had bone cancer, paternal grandmother had diabetes. SOCIAL HISTORY: She is single. Quit smoking in 1996, smoked 1 pack a day for 15 years. Alcohol, rarely. No drug use. REVIEW OF SYSTEMS: As per HPI. Rest of the review of systems is negative. PHYSICAL EXAMINATION: GENERAL: The patient is morbidly obese, not in acute distress. VITAL SIGNS: Temperature 37, pulse 83, respiratory rate 16, blood pressure 93/58, oxygen 95% on 2 liters. HEENT: Pupils equal, round, and reactive to light. Oral mucosa moist. NECK: No JVD, no neck masses. CARDIOVASCULAR: S1 and S2 heard. Regular rate and rhythm. No murmur, no gallop. RESPIRATORY SYSTEM: Normal AP diameter. No accessory muscle. No wheezing, no crackles. ABDOMEN: Soft, bowel sounds present, nontender, no distention. CENTRAL NERVOUS SYSTEM: Cranial nerves II-XII grossly intact, nonfocal. EXTREMITIES: No edema, no erythema. LABORATORY DATA: WBC 9.8, hemoglobin 14, hematocrit 45.2, platelets 311. Sodium 136, chloride 102, bicarbonate 29, BUN 22, creatinine 1.7, serum glucose 128, calcium 9, total bilirubin 0.4, ALT 29, alkaline phosphatase 77. TSH 0.8. SARS-CoV-2 PCR negative. IMAGING DATA: CT of the head, preliminary report unremarkable. Chest x-ray, no acute findings. EKG: Normal sinus rhythm at a rate of 86, no significant change was found. ASSESSMENT AND PLAN: This is a 65-year-old female who presents with fall and also found to have hypotension. 1. Fall, possibly hypotension contributing. The patient has ambulatory dysfunction, and on walker at home. Will do PT/OT. Check the orthostatics. Monitor in the [employer] tele. 2. Hypotension: The patient has history of hypotension, was on midodrine, but it was stopped because of elevated blood pressure. Received 10 mg of midodrine in the ER and fluids. Continue with fluids 100 mL per hour for 1 liter and placed on midodrine 5 mg p.o. t.i.d. and monitor. Holding amitriptyline while on midodrine for drug interaction. 3. Diabetes: Will continue her Tresiba, placed on insulin sliding scale. glycemic pharmacy consult. Monitor the blood sugars. 4. Depression and generalized anxiety disorder: Continue on duloxetine and Klonopin. Will monitor the blood pressure. 5. History of chronic diastolic congestive heart failure: Continue Lasix. To verify potassium supplement. Monitor for any volume overload as the patient receiving fluids. 6. Hypothyroidism: Continue Synthroid. 7. Fibromyalgia: Continue tramadol, gabapentin, Cymbalta. 8. Restless legs syndrome: Continue ReQuip. 9. Chronic kidney disease stage III: Creatinine of 1.7, seems to be at baseline. Will follow the labs. 10. Hypertension: Blood pressure is low. Holding Lopressor. The patient is on Lasix. We will monitor the blood pressure. 11. History of pulmonary embolism: Status post IVC filter. 12. Obstructive sleep apnea: On CPAP. 13. Chronic respiratory failure: On 2 liters oxygen. 14. Deep venous thrombosis prophylaxis: Sequential compression devices. The patient has history of heparin-induced thrombocytopenia. DISPOSITION: Closely monitor in the med tele. PT/OT. Social service to help with discharge planning. Level 1 full code. Job ID: [id number] [facility]
[2021-04-02] MEDS: traMADol HCL 50 MG TABLET PO PRN ×2 (05:07→23:40)
[2021-04-02] MEDS: LEVOTHYROXINE SODIUM 200 MCG TABLET PO SCH (06:22)
[2021-04-02] MEDS: LEVOTHYROXINE SODIUM 50 MCG TABLET PO SCH (06:22)
--- NOTE | 2021-04-02 06:52 | XRay Report ---
XR chest 1V portable HISTORY: 65 years-old Female weakness acute weakness COMPARISON: Chest radiograph 03/26/2021 TECHNIQUE: Portable AP view of the chest FINDINGS: Cardiac silhouette is enlarged. Calcified plaque of the thoracic aorta. There is unchanged interstiti al coarsening. No pneumothorax, pleural effusion or lobar airspace consolidation. Degenerative change s of the shoulders and spine. IMPRESSION: Cardiomegaly with unchanged interstitial coarsening. ACT 112: Negative or not required by law. The above report was generated using voice recognition software. It may contain grammatical, syntax o r spelling errors. Electronically signed by: Enrico Gilliland M.D. 04/02/2021 6:51 AM
--- NOTE | 2021-04-02 06:57 | CT Scan Report ---
CT head/brain wo con CLINICAL HISTORY: 65 years-old Female with Pt c/o fall, hit head. Acute head injury status post fall TECHNIQUE: Multiple axial CT images of the head were obtained without contrast. A dose lowering tech nique was utilized adhering to the principles of ALARA. CT DOSE: 2334.03 mGy.cm COMPARISON: Head CT and brain MRI study 03/27/2021 FINDINGS: No acute intracranial hemorrhage, midline shift, intracranial mass, hydrocephalus, territorial ischem ia or abnormal extra-axial collection. White matter hypodensities suggestive of chronic microvascular ischemic disease. Cerebral vascular calcifications. Mildly motion degraded exam. The calvarium is intact. The paranasal sinuses, mastoid air cells, and middle ear cavities are clear . IMPRESSION: No acute intracranial abnormality or calvarial fracture. ACT 112: Negative or not required by law. The above report was generated using voice recognition software. It may contain grammatical, syntax o r spelling errors. Electronically signed by: Enrico Gilliland M.D. 04/02/2021 6:56 AM
[2021-04-02 07:21] LABS: Basophils # (auto) 0.05 K/uL (0-0.2); Basophils % (auto) 0.6 %; Eosinophils # (auto) 0.48 K/uL (0-0.5); Eosinophils % (auto) 5.3 %; Hematocrit (blood only) 42.7 % (37-47); Hemoglobin 13.3 g/dL (12.0-16.0); Immature Granulocytes # (auto) 0.03 K/uL (0.00-0.02); Immature Granulocytes % (auto) 0.3 %; Lymphocytes # (auto) 2.04 K/uL (1.2-3.4); Lymphocytes % (auto) 22.6 %; Mean Corpuscular Hemoglobin 30.2 pg (25-34); Mean Corpuscular Hgb Conc 31.1 g/dL (32-36); Mean Platelet Volume 9.4 fL (7.4-10.4); Monocytes # (auto) 0.63 K/uL (0.11-0.59); Neutrophils # (auto) 5.78 K/uL (1.4-6.5); Neutrophils % (auto) 64.2 %; Platelet Count 275 K/uL (130-400); RDW Coefficient of Variation 16.1 % (11.5-14.5); RDW Standard Deviation 57.3 fL (36.4-46.3); White Blood Count 9.01 K/uL (4.8-10.8)
[2021-04-02] MEDS: GABAPENTIN 300 MG CAP PO SCH ×3 (07:31→20:56)
[2021-04-02] MEDS: FUROSEMIDE 20 MG TAB PO SCH ×2 (07:31→17:06)
[2021-04-02] MEDS: DULoxetine HCL 60 MG CAP PO SCH (07:31)
[2021-04-02] MEDS: DULoxetine HCL 30 MG CAP PO SCH (07:32)
[2021-04-02] MEDS: COLCHICINE 0.6 MG TAB PO SCH (07:32)
[2021-04-02] MEDS: MAGNESIUM OXIDE 400 MG TAB PO SCH (07:33)
[2021-04-02] MEDS: CHOLECALCIFEROL 1,000 UNITS 25 MCG TAB PO SCH (07:33)
[2021-04-02] MEDS: REQUIP XL - ORDER AWAITING ACTION SCH ×2 (07:34→13:41)
[2021-04-02 07:58] LABS: Estimated Average Glucose 194 mg/dl; Hemoglobin A1C 8.4 % (4.5-5.6)
[2021-04-02 07:59] LABS: BUN Creatinine Ratio 13.9 (10-20); Calcium 8.7 mg/dl (8.5-10.1); Creatinine Clr Calc Pharmacy 52.1 ml/min; Est GFR (African American) 37.9 ml/min; Est GFR (Non-African American) 32.7 ml/min; Magnesium 1.7 mg/dl (1.8-2.4); Potassium 3.6 mmol/L (3.5-5.1)
[2021-04-02] MEDS ORDERED: INSULIN GLARGINE 100 UNIT/ML VIAL SC ONE (08:30)
[2021-04-02] MEDS: MIDODRINE HCL 2.5 MG TAB PO SCH ×3 (08:36→17:07)
[2021-04-02] MEDS: INSULIN ASPART 100 UNITS/ML 3 ML PEN SC SCH ×4 (08:54→20:57)
--- NOTE | 2021-04-02 08:58 | CT Scan Report ---
CT SCAN OF THE PELVIS WITHOUT IV CONTRAST CLINICAL HISTORY: Fall. Pelvic pain. COMPARISON STUDY: Pelvic CT dated 03/26/2021. TECHNIQUE: CT scan of the pelvis is performed from the pelvic inlet to the proximal femora. Images ar e reviewed in the axial, sagittal, and coronal planes. IV contrast was not administered for this exam ination. A dose lowering technique was utilized adhering to the principles of ALARA. The examination is degraded by large body habitus, and by streak artifact from the body wall abutting the CT gantry. FINDINGS: The skeletal structures are osteopenic. No fracture is identified involving the hips or bon y pelvis. Mild degenerative change and joint space narrowing is seen in the hips. Minimal degenerativ e change is noted in the sacroiliac joints. No lytic or blastic lesion is seen. There is generalized atrophy of the regional musculature. There is no evidence of hematoma. The bladder, uterus, and adnex a are normal as visualized. Imaged bowel loops show no evidence of obstruction. No intraperitoneal fr ee air or abdominal ascites is seen in the pelvis. An infrarenal IVC filter is partially imaged. Ther e is atherosclerotic calcification of the iliac arteries. There is no pelvic sidewall or inguinal lym phadenopathy. IMPRESSION: No acute bony abnormality is identified. ACT 112: Negative or not required by law. Dictated: 04/02/2021 8:32 AM Transcribed: 04/02/2021 8:55 AM Flaca [id number] Electronically signed by: Zachariah Borden M.D. 04/02/2021 8:57 AM
--- NOTE | 2021-04-02 10:21 | Communication Note ---
Date of Service: April 02, 2021 Patient seen and examined 65-year-old female with past medical history significant for type 2 diabetes; hyperlipidemia; postsurgical hypothyroidism; hyperparathyroidism secondary to renal disease; obstructive sleep apnea, on CPAP at bedtime; history of PE, DVT, status post IVC filter, secondary to heparin-induced thrombocytopenia; chronic respiratory failure on home oxygen; history of tobacco abuse; fibromyalgia; restless legs syndrome; hypertension; chronic kidney disease stage III; chronic diastolic CHF; history of vasculitis; morbid obesity; GERD; osteoarthritis; lumbar radiculopathy; mild episode of depression, generalized anxiety disorder; statin intolerance; abnormality of gait who presents after a fall at home. History and physical exam as detailed by Dr. Montes this morning Patient reports of fall while going to get a glass of water. Denied any loss of consciousness. She stated she was not really dizzy at the time. Denied any pal pitations, chest pain, shortness of breath at the time. Physical exam notable for morbid obesity. Lab work notable for Mg of 1.7 -Fall -Orthostatic hypotension We will continue midodrine for now holding parameters. Plan to discontinue metoprolol given in discharge if stable Get carotid duplex PT/OT evaluation Agree with other plans as detailed by Dr. Montes in H/P this morning
[2021-04-02] MEDS: clonazePAM 0.5 MG TAB PO PRN ×2 (11:16→20:56)
[2021-04-02] MEDS: ACETAMINOPHEN 325 MG TAB PO PRN (11:16)
--- NOTE | 2021-04-02 13:59 | Ultrasound Report ---
BILATERAL CAROTID DOPPLER STUDY HISTORY: Dizziness. Assess for stenosis COMPARISON: None. TECHNIQUE: Real-time, grayscale, and color Doppler sonography of the carotid arteries was performed. Imaging reviewed in the transverse and longitudinal planes. All measurements were calculated based on NASCET criteria. FINDINGS: There is antegrade flow within the left vertebral artery and retrograde flow the right vertebral walker ry. The brachial pressures are hemodynamically similar. Severe calcified plaque within the right internal carotid artery. Mild calcified plaque within the le ft carotid bifurcation. Mild stenosis within the bilateral external carotid arteries. The peak systolic velocity within the right ICA is 305 cm/s within the midportion. The right systolic ratio is 3.3. The peak systolic velocity within the left ICA is 132 cm/s, approximately. The left systolic ratio is 1.4. IMPRESSION: 1. Greater than 70% stenosis within the mid right ICA. 2. Approximately 50-59% stenosis within the proximal left ICA. 3. Retrograde flow within the right vertebral artery. This suggests the possibility of subclavian carolin al syndrome. ACT 112: Negative or not required by law. Electronically signed by: Ernesto France M.D. 04/02/2021 1:58 PM
--- NOTE | 2021-04-02 14:21 | Pharmacy Report ---
Pharmacy Glycemic Short Note 2 - Date of Service April 02, 2021 - Glycemic Short BSG Results (Last 24 hours): 04/01/21 04/02/21 04/02/21 21:00 07:04 07:55 Glucose 128 H 170 H POC Glucose 184 H 04/02/21 12:02 Glucose POC Glucose 194 H OUTPATIENT ANTIDIABETIC REGIMEN: * Trulicity 3mg SQ weekly * Novolog 40 units TID with meals (up to 200 units/day) * Tresiba 60 units HS (took dose prior to admission last night) ASSESSMENT: * 65 year old female, admitted after fall, A1c 8.4%, on basal bolus insulin at home as listed above * Fasting blood sugar 184mg/dl - will give additional basal dose this morning * Blood sugar sandie to 194mg/dl at lunch, will tighten CR * no additional factors for insulin resistance at this time PLAN FOR INPATIENT GLYCEMIC CONTROL: * Hold outpatient Trulicity * Basal insulin * Lantus 20 units SQ x 1 dose this AM * 60 units HS * Bolus insulin * NovoLog per scale ACHS or Q6hrs while NPO * Goal Range: Low 110 mg/dL - High 140 mg/dL * Correction Factor: 10 mg/dL/unit * TIGHTEN: Nutritional / Prandial insulin per carb ratio of 1 unit per 2.5 grams CHO consumed
[2021-04-02] MEDS: traZODone HCL 50 MG TAB PO SCH (20:56)
[2021-04-02] MEDS: PANTOprazole 40 MG TAB PO SCH (20:56)
[2021-04-02] MEDS: LIDOCAINE 5% 1 PATCH TD SCH (20:57)
[2021-04-02] MEDS ORDERED: INSULIN GLARGINE 100 UNIT/ML VIAL SC SCH (21:00)
[2021-04-02] MEDS ORDERED: NON-FORMULARY MEDICATION (Insulin Degludec [Tresiba Flextouch U-100] 100 unit/mL (3 mL) In SQ SCH (21:00)
[2021-04-02] MEDS ORDERED: NORTRIPTYLINE HCL 25 MG CAP PO SCH (21:00)
[2021-04-02] MEDS: DOCUSATE SODIUM 100 MG CAP PO PRN (21:05)
[2021-04-03] MEDS: REQUIP XL - ORDER AWAITING ACTION SCH ×4 (00:01→23:03)
--- NOTE | 2021-04-03 05:36 | Electrocardiogram Report ---
Test Reason : Blood Pressure : / mmHG Vent. Rate : 086 BPM Atrial Rate : 086 BPM P-R Int : 170 ms QRS Dur : 084 ms QT Int : 376 ms P-R-T Axes : 066 024 037 degrees QTc Int : 449 ms Normal sinus rhythm Normal ECG When compared with ECG of 26-MAR-2021 21:12, No significant change was found Confirmed by Parish Julien ([id number]) on 04/03/2021 5:36:26 AM Referred By: REFERRED SELF Confirmed By:Parish Julien
[2021-04-03] MEDS: LEVOTHYROXINE SODIUM 200 MCG TABLET PO SCH (06:07)
[2021-04-03] MEDS: LEVOTHYROXINE SODIUM 50 MCG TABLET PO SCH (06:07)
[2021-04-03] MEDS: MICONAZOLE NITRATE POWDER 43 GM EXT SCH ×2 (06:07→20:24)
[2021-04-03 06:35] LABS: Hematocrit (blood only) 41.6 % (37-47); Mean Corpuscular Hemoglobin 29.8 pg (25-34); Mean Corpuscular Hgb Conc 31.3 g/dL (32-36); Mean Corpuscular Volume 95.4 fL (80-100); Mean Platelet Volume 9.6 fL (7.4-10.4); Platelet Count 286 K/uL (130-400); RDW Coefficient of Variation 15.7 % (11.5-14.5); RDW Standard Deviation 54.8 fL (36.4-46.3); Red Blood Count 4.36 M/uL (4.2-5.4); White Blood Count 7.83 K/uL (4.8-10.8)
[2021-04-03 07:15] LABS: BUN Creatinine Ratio 16.4 (10-20); Calcium 8.6 mg/dl (8.5-10.1); Est GFR (African American) 37.9 ml/min; Est GFR (Non-African American) 32.7 ml/min; Potassium 3.9 mmol/L (3.5-5.1)
[2021-04-03] MEDS: DULoxetine HCL 60 MG CAP PO SCH (07:41)
[2021-04-03] MEDS: MAGNESIUM OXIDE 400 MG TAB PO SCH (07:41)
[2021-04-03] MEDS: DULoxetine HCL 30 MG CAP PO SCH (07:41)
[2021-04-03] MEDS: COLCHICINE 0.6 MG TAB PO SCH (07:41)
[2021-04-03] MEDS: GABAPENTIN 300 MG CAP PO SCH ×3 (07:42→20:20)
[2021-04-03] MEDS: CHOLECALCIFEROL 1,000 UNITS 25 MCG TAB PO SCH (07:42)
[2021-04-03] MEDS: FUROSEMIDE 20 MG TAB PO SCH ×2 (07:42→17:03)
[2021-04-03] MEDS: MIDODRINE HCL 2.5 MG TAB PO SCH (08:10)
[2021-04-03] MEDS: INSULIN ASPART 100 UNITS/ML 3 ML PEN SC SCH ×4 (08:22→20:37)
--- NOTE | 2021-04-03 11:37 | Consultation ---
Date of Consultation April 03, 2021 Assessment & Plan (1) Carotid stenosis, right: Pt asymptomatic from R ICA stenosis, recommend 6 month US surveillance. (2) Subclavian artery stenosis: Pt possibly with R sided subclavian stenosis and steal syndrome. Unsure whether pt sx are related to this, but there is a significant pressure gradient and retrograde flow in R vert. Will obtain CTA chest to further eval. History of Present Illness Reason for Consultation: carotid stenosis, possibl subclavian steal Attending Physician: Kenya Pandey MD History of Present Illness 65 yo f withmultiple medical problems, including DMII, ELISSA, hypothyroidism, HTN, CKD, CHF, PE/DVT s/p IVC filter insertion, GERD, fibromyalgia, anxiety/depression, admitted after a fall at home, seen in consultation today for R ICA stenosis and possible subclavian steal syndrome. Pt states she has had chronic intermittent dizziness for a long time and has had multiple workups for this in past. States she has had episodes of passing out without any prior warning or dizziness. States this particular episode occurred after she turned around with a glass of water in her hand and she just fell to the ground. Most recent episode prior to this was in November. Admits lowback spinal problems with leg weakness for which she gets periodic injections. Pt denies BURROWS, recent illness, chest pain, SOB, AVENDAÑO, palpitatons, abd pain, N/V, rest pain, ulcerations. Carotid US demonstrates R ICA stenosis apprx 70%, and retrograde flow R vertebral artery. BL BP demonstrate 50mmHg gradient. Allergies Allergy/AdvReac Type Severity Reaction Status Date / Time morphine Allergy Severe VIOLENT Verified 04/01/21 20:05 REACTION-"ALMOST " SWELLING tetanus toxoid, adsorbed Allergy Intermediate PASSED OUT Verified 04/01/21 20:05 AND GOT SICK WHEN A CHILD acetaminophen [From Vicodin] AdvReac Intermediate sleepiness Verified 04/01/21 20:05 codeine AdvReac Intermediate Hallucinati Verified 04/01/21 20:05 ons empagliflozin AdvReac Intermediate YEAST Verified 04/01/21 20:05 [From Jardiance] INFECTIONS heparin AdvReac Intermediate HIT; FLUID Verified 04/01/21 20:05 IN LUNGS hydrocodone [From Vicodin] AdvReac Intermediate sleepiness Verified 04/01/21 20:05 bupropion [From Wellbutrin] AdvReac Recurrent Verified 04/01/21 20:05 falls as per patient Home Medications Medication Instructions Recorded Confirmed Type levothyroxine 200 mcg PO QAM 06/09/18 04/01/21 History metoprolol tartrate 12.5 mg PO BID 06/09/18 04/01/21 History omeprazole 20 mg PO HS 06/09/18 04/01/21 History cyclobenzaprine 10 mg PO HS PRN 12/08/18 04/01/21 History duloxetine 60 mg PO QAM 12/23/18 04/01/21 History gabapentin 300 mg PO TID 05/09/19 04/01/21 History colchicine 0.3 mg PO DAILY 01/25/20 04/01/21 History duloxetine 30 mg PO DAILY 01/25/20 04/01/21 History furosemide [Lasix] 20 mg PO BID 01/25/20 04/01/21 History insulin aspart U-100 [Novolog 0 unit SUBCUT ACHS 01/25/20 04/01/21 History U-100 Insulin aspart] magnesium oxide 400 mg PO DAILY 01/25/20 04/01/21 History trazodone 50 mg PO HS 01/25/20 04/01/21 History potassium chloride 10 meq PO Q OTHER DAY 03/10/20 04/01/21 History tramadol 50 mg PO Q8H PRN 07/19/20 04/01/21 History cholecalciferol (vitamin D3) 1,000 unit PO QAM #30 cap 07/22/20 04/01/21 Rx Tresiba FlexTouch U-100 60 unit SUBCUT HS 11/24/20 04/01/21 History lidocaine 1 patch TRANSDERMAL HS #15 ea 11/26/20 04/01/21 Rx ropinirole [Requip XL] 1 mg PO HS #0 tab 11/26/20 04/01/21 Rx Trulicity 3 mg SUBCUT WK 03/27/21 04/01/21 History dicyclomine 20 mg PO QID PRN 03/27/21 04/01/21 History docusate sodium [Colace] 100 mg PO BID PRN 03/27/21 04/01/21 History insulin aspart U-100 [Novolog 40 unit SUBCUT WM 03/27/21 04/01/21 History Flexpen U-100 Insulin] levothyroxine 50 mcg PO QAM 03/27/21 04/01/21 History meclizine 12.5 mg PO TID PRN 03/27/21 04/01/21 History nortriptyline [Pamelor] 50 mg PO HS 03/27/21 04/01/21 History clonazepam 0.5 mg PO BID PRN #0 tab 03/28/21 04/01/21 Rx Patient History Medical History CKD (chronic kidney disease), stage III Depression with anxiety Diabetes Diabetes mellitus, type II Fibromyalgia GERD (gastroesophageal reflux disease) History of DVT (deep vein thrombosis) History of pulmonary embolism s/p zoraida filter HIT (heparin-induced thrombocytopenia) HLD (hyperlipidemia) HTN (hypertension) Hypothyroidism Morbid obesity ELISSA on CPAP Presence of IVC filter RLS (restless legs syndrome) Sepsis Surgical History History of cholecystectomy History of colon resection secondary to R colon perforation, resected treated with colostomy and eventual reversal in 2008, Dr. 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: No Beliefs That Will Affect Care: None marital status: Single Current Living Situation: Alone How many Children do You have: 0 Other Information That Helps Us Care for You: No Feels Safe at Home: Yes Safety Concerns: Feels Safe At This Time Assistive Devices: Cane and Walker Review of Systems Review of Systems: All systems reviewed & are unremarkable except as noted in HPI & below Physical Exam Constitutional: WD/WN, vitals as above + morbidly obese and cooperative; not in distress ENMT: Ears: no hearing impairment Neck: trachea midline Respiratory: normal respiratory effort Auscultation: + diminished lung sounds Cardiovascular: Rate/Rhythm: regular rate and regular rhythm Vessels: posterior tibial pulses present (+1 BLE) and dorsalis pedis pulses present (+2 BLE) Extremities: normal capillary refill and + edema Musculoskeletal: Extremities: strength 5/5 throughout Skin: no rashes, warm and dry Neurologic: moves all extremities; no focal motor deficits and not confused Psychiatric: A+Ox3, euthymic affect Results & Data ([facility]) Vital Signs (Past 12 Hours) Vital Signs Temp Pulse Resp BP BP Pulse Ox Pulse Ox 04/03/21 10:45 141/70 H 94/67 L 04/03/21 07:43 36.6 C 74 16 165/66 H 92 04/03/21 03:47 36.5 C 82 20 137/71 95 04/03/21 01:44 91
--- NOTE | 2021-04-03 11:44 | Hospitalist Progress Note ---
Date of Service April 03, 2021 Assessment & Plan (1) Fall: (2) Orthostasis: Fall at home. Has had direct current episodes of dizziness. Work-up in the past with CT head and MRI has been unremarkable including echocardiogram. I obtained carotid duplex which revealed greater than 70% stenosis within the mid right ICA and 50 to 59% stenosis within proximal left ICA as well as retrograde flow within the right vertebral artery suggesting possibility of subclavian steal syndrome. Discussed with vascular surgeon Dr. Tang. Appreciate evaluation. He recommends getting a CT angio of the chest for further evaluation. Discussed this with patient. We discussed the risk of contrast considering her CKD 3. Patient would like to proceed with test. We will give some IV fluids prior to CT angio We will follow-up final vascular surgery evaluations and recommendations Discussed statin therapy with patient. She stated she had been intolerant in the past. Confirmed this from cardiology outpatient note from 01/12/2019 PT/OT evaluation noted. Rehab recommended (3) Diabetes mellitus, type II: Carbohydrate controlled diet. Manage blood glucose with insulin per protocol. (4) CHF (congestive heart failure): History of chronic diastolic heart failure. Currently euvolemic On Lasix (5) Hypothyroidism: Continue levothyroxine (6) RLS (restless legs syndrome): Continue ropinirole (7) CKD (chronic kidney disease), stage III: Creatinine at baseline. Avoid nephrotoxins Monitor (8) History of pulmonary embolism: Status post IVC filter (9) Hypoxia: (10) ELISSA on CPAP: Chronic hypoxia on oxygen. Continue oxygen supplementation Continue CPAP at bedtime (11) DVT prophylaxis: SCD Admission and Anticipated Discharge Date Admission Date: April 02, 2021 Subjective 65-year-old female with past medical history significant for type 2 diabetes; hyperlipidemia; postsurgical hypothyroidism; hyperparathyroidism secondary to renal disease; obstructive sleep apnea, on CPAP at bedtime; history of PE, DVT, status post IVC filter, secondary to heparin-induced thrombocytopenia; chronic respiratory failure on home oxygen; history of tobacco abuse; fibromyalgia; restless legs syndrome; hypertension; chronic kidney disease stage III; chronic diastolic CHF; history of vasculitis; morbid obesity; GERD; osteoarthritis; lumbar radiculopathy; mild episode of depression, generalized anxiety disorder; statin intolerance; abnormality of gait who presents after a fall at home. Patient seen and examined this morning. Denies any dizziness at this time Denies any other complaints Physical Exam Constitutional: + well hydrated and + obese; no acute distress Eyes: PERRL, conjunctivae normal, anicteric sclerae ENMT: external ear and nose normal, oropharynx normal Respiratory: normal respiratory effort, lungs clear to auscultation Cardiovascular: Rate/Rhythm: regular rate and regular rhythm S1-S2 Gastrointestinal (Abdomen): normal bowel sounds, soft, nontender, no hepatosplenomegaly Musculoskeletal: no cyanosis or clubbing, extremities motor strength 5/5 Neurologic: PERRL, EOMI, accommodation nl, no face palsy, no dysarthria Psychiatric: A+Ox3, euthymic affect Genitourinary: no CVA tenderness Results & Data Results & Data ([facility]) Vital Signs (Past 12 Hours) Vital Signs Temp Pulse Resp BP BP Pulse Ox Pulse Ox 04/03/21 10:45 141/70 H 94/67 L 04/03/21 07:43 36.6 C 74 16 165/66 H 92 04/03/21 03:47 36.5 C 82 20 137/71 95 04/03/21 01:44 91 Laboratory Results Abnormal lab results 04/02/21 04/02/21 04/03/21 Range/Units 16:42 20:05 06:15 MCHC 31.3 L (32-36) g/dL RDW Std Deviation 54.8 H (36.4-46.3) fL RDW Coeff of Adolfo 15.7 H (11.5-14.5) % BUN (7-18) mg/dl Creatinine (0.6-1.2) mg/dl Glucose (70-99) mg/dl POC Glucose 122 H 122 H (70-99) mg/dl Triglycerides (0-150) mg/dl 04/03/21 04/03/21 04/03/21 Range/Units 06:15 06:15 07:36 MCHC (32-36) g/dL RDW Std Deviation (36.4-46.3) fL RDW Coeff of Adolfo (11.5-14.5) % BUN 27 H (7-18) mg/dl Creatinine 1.63 H (0.6-1.2) mg/dl Glucose 123 H (70-99) mg/dl POC Glucose 145 H (70-99) mg/dl Triglycerides 211 H (0-150) mg/dl 04/03/21 Range/Units 11:46 MCHC (32-36) g/dL RDW Std Deviation (36.4-46.3) fL RDW Coeff of Adolfo (11.5-14.5) % BUN (7-18) mg/dl Creatinine (0.6-1.2) mg/dl Glucose (70-99) mg/dl POC Glucose 159 H (70-99) mg/dl Triglycerides (0-150) mg/dl (1) CHF (congestive heart failure) Heart failure chronicity: acute on chronic Heart failure type: unspecified Qualified Code(s): I50.9 - Heart failure, unspecified
[2021-04-03 11:53] LABS: Chol HDL Ratio 5; Cholesterol 167 mg/dl (0-200); HDL Cholesterol 34 mg/dl; LDL Cholesterol Calculated 91 mg/dl; Triglycerides 211 mg/dl (0-150); VLDL Cholesterol 42 mg/dl
[2021-04-03] MEDS: ACETYLCYSTEINE 600 MG CAP PO SCH ×2 (12:33→22:45)
[2021-04-03] MEDS: traMADol HCL 50 MG TABLET PO PRN (13:34)
[2021-04-03] MEDS: INSULIN GLARGINE 100 UNIT/ML VIAL SC SCH (17:04)
[2021-04-03] MEDS: clonazePAM 0.5 MG TAB PO PRN (17:05)
--- NOTE | 2021-04-03 20:16 | Emergency Department Note ---
Impression & Plan Syncope, Acute hypotension ED Provider Note NAME: GEENA MAC AGE: 65 SEX: F : 1955 ARRIVES VIA: Ambulance INFORMANT: Patient, ED PROVIDER(S): Zeb Griggs MD CHIEF COMPLAINT: fall, hit head HPI: 65-year-old female who was recently admitted to the hospital over concerns about hypertension. The patient was discharged home. The patient reports she is incredibly weak and is having difficulty walking. She reports 2 falls today. The patient reports any movement makes the weakness worse however immobilization makes the weakness better. She has not taken anything for the weakness. The patient notes that one of her blood pressure medications was recently stopped. ROS: See above HPI for pertinent positives & negatives. A total of 10 systems reviewed and were otherwise negative. PAST MEDICAL HISTORY: See Below PAST SURGICAL HISTORY: See Below FAMILY HISTORY: See Below SOCIAL HISTORY: See Below HOME MEDICATIONS: See Below ALLERGIES: See Below VITALS: See Below PHYSICAL EXAMINATION: VITAL SIGNS - Vital signs and nursing notes were reviewed. GENERAL - 65-year-old female appearing stated age who is in no acute distress. Communicates well with provider and answers questions appropriately. SKIN - Without rashes. HEAD - NC/AT. EYES - PERRL with EOMI bilaterally. Sclera anicteric. Palpebral conjunctiva pink and moist with no injection noted. EARS - No deformities of external structures noted on gross examination bilaterally. NOSE - Midline and without cyanosis. No epistaxis or purulent drainage noted. Septum midline without deviation or septal hematoma noted. MOUTH/OROPHARYNX - Without perioral cyanosis. Buccal mucosa pink and moist and without leukoplakia. Tongue midline with equal elevation of palate bilaterally. No tonsillar hypertrophy, erythema, or exudates noted. NECK - Neck with FROM. Supple to palpation. No nuchal rigidity. LUNGS - Chest wall symmetric without accessory muscle use, intercostals retractions, or central cyanosis. Normal vesicular breath sounds CTA B/L. No wheezes, rales, or rhonchi appreciated. CARDIAC - RRR with S1/S2. No murmur, rubs, or gallops appreciated. ABDOMEN - Abdominal contour without pulsations or visible masses. BS normoactive all four quadrants. No tenderness, palpable masses, hepatosplen omegaly, or ascites noted. EXTREMITIES - No clubbing or peripheral cyanosis. No pretibial edema present. +3/5 radial, posterior tibial, and dorsalis pedis pulses palpated throughout. +5/5 strength noted in UE/LE bilaterally. NEUROLOGIC - Cranial nerves II through XII grossly intact. Sensory intact to light touch throughout. Patellar reflexes +2/4. PSYCH - A&Ox3 and cooperates fully with examiner. Pt is very pleasant and interacts well with examiner. MEDICAL DECISION MAKING: Patient was seen and evaluated as above in room A10. Review was performed of nursing notes and vital signs. I did review pertinent previous visits and patient history. After obtaining a thorough history and physical examination the above work up was performed. This 65 who presents to the emergency department complaining of weakness. The patient was found to be hypotensive here in the emergency department. She was given a normal saline bolus. Her midridine was recently stopped. And I believe this may be why the patient is so hypotensive. She was this was restarted in the emergency department. I then attempted to ambulate the patient however she did very poorly. For this reason I did discuss the case with the hospitalist service who did agree to admit the patient. Patient is in agreement with the treatment plan. An order was placed for continuous cardiac monitoring. The monitor shows a rate of 86 with Normal Sinus rhythm. The patient was evaluated during a period of high volume and high acuity during the global COVID-19 pandemic, and that diagnosis was suspected/considered upon their initial presentation. Their evaluation, treatment and testing was consistent with current guidelines for patients who present with complaints or symptoms that may be related to COVID-19. Patient was seen while provider was wearing PPE. Triage Nursing notes reviewed. Prior medical records reviewed Vital Signs: reviewed and remarkable for no significant abnormalities Differential diagnosis: Infection, dehydration, metabolic abnormality, hypo/hyperglycemia, electrolyte disturbance, anemia, hypoxia, cardiac sources, intracerebral event, toxicologic, neurologic, as well as other pathologies. ER treatment provided: See below Diagnostics interpreted by me: ECG: EKG shows normal sinus rhythm normal EKG QTC is 449 ventricular rate is 86 EKG is compared to 03/26/2021 no significant change was found Laboratory studies: As stated above and show below. Imaging studies: See below Consultation(s): Internal Medicine Past Med/Surg History Medical History (Updated 04/03/21 @ 20:20 by Zeb Griggs MD) Carotid stenosis, right CKD (chronic kidney disease), stage III Depression with anxiety Diabetes Diabetes mellitus, type II Fibromyalgia GERD (gastroesophageal reflux disease) History of DVT (deep vein thrombosis) History of pulmonary embolism s/p zoraida filter HIT (heparin-induced thrombocytopenia) HLD (hyperlipidemia) HTN (hypertension) Hypothyroidism Morbid obesity ELISSA on CPAP Presence of IVC filter RLS (restless legs syndrome) Sepsis Subclavian artery stenosis Surgical History History of cholecystectomy History of colon resection secondary to R colon perforation, resected treated with colostomy and eventual reversal in 2008, Dr. Lerma History of thyroidectomy, total History of total right knee replacement History of tracheostomy 2010, secondary to acute resp failure secondary to pneumonia, transferred to [facility] Family History Father , age 74 Lung cancer Mother , age 45 Cirrhosis Social History Smoking Status: Never smoker Cigarettes Per Day: 15 pack year hx; Second Hand Exposure: No; Hx Alcohol Use: No Hx Substance Use: No Preferred Language: Mohawk Communication Ability: Effective Account Services Specialist Required: No Beliefs That Will Affect Care: None marital status: Single Current Living Situation: Alone How many Children do You have: 0 Other Information That Helps Us Care for You: No Feels Safe at Home: Yes Safety Concerns: Feels Safe At This Time Assistive Devices: Cane and Walker Allergies Allergies Allergy/AdvReac Type Severity Reaction Status Date / Time morphine Allergy Severe VIOLENT Verified 04/01/21 20:05 REACTION-"ALMOST " SWELLING tetanus toxoid, adsorbed Allergy Intermediate PASSED OUT Verified 04/01/21 20:05 AND GOT SICK WHEN A CHILD acetaminophen [From Vicodin] AdvReac Intermediate sleepiness Verified 04/01/21 20:05 codeine AdvReac Intermediate Hallucinati Verified 04/01/21 20:05 ons empagliflozin AdvReac Intermediate YEAST Verified 04/01/21 20:05 [From Jardiance] INFECTIONS heparin AdvReac Intermediate HIT; FLUID Verified 04/01/21 20:05 IN LUNGS hydrocodone [From Vicodin] AdvReac Intermediate sleepiness Verified 04/01/21 20:05 bupropion [From Wellbutrin] AdvReac Recurrent Verified 04/01/21 20:05 falls as per patient Home Meds Home Medications Medication Instructions Recorded Confirmed levothyroxine 200 mcg PO QAM 06/09/18 04/01/21 metoprolol tartrate 12.5 mg PO BID 06/09/18 04/01/21 omeprazole 20 mg PO HS 06/09/18 04/01/21 cyclobenzaprine 10 mg PO HS PRN 12/08/18 04/01/21 duloxetine 60 mg PO QAM 12/23/18 04/01/21 gabapentin 300 mg PO TID 05/09/19 04/01/21 colchicine 0.3 mg PO DAILY 01/25/20 04/01/21 duloxetine 30 mg PO DAILY 01/25/20 04/01/21 furosemide [Lasix] 20 mg PO BID 01/25/20 04/01/21 insulin aspart U-100 [Novolog 0 unit SUBCUT [facility] 01/25/20 04/01/21 U-100 Insulin aspart] magnesium oxide 400 mg PO DAILY 01/25/20 04/01/21 trazodone 50 mg PO HS 01/25/20 04/01/21 potassium chloride 10 meq PO Q OTHER DAY 03/10/20 04/01/21 tramadol 50 mg PO Q8H PRN 07/19/20 04/01/21 Tresiba FlexTouch U-100 60 unit SUBCUT HS 11/24/20 04/01/21 Trulicity 3 mg SUBCUT WK 03/27/21 04/01/21 dicyclomine 20 mg PO QID PRN 03/27/21 04/01/21 docusate sodium [Colace] 100 mg PO BID PRN 03/27/21 04/01/21 insulin aspart U-100 [Novolog 40 unit SUBCUT 03/27/21 04/01/21 Flexpen U-100 Insulin] levothyroxine 50 mcg PO QAM 03/27/21 04/01/21 meclizine 12.5 mg PO TID PRN 03/27/21 04/01/21 nortriptyline [Pamelor] 50 mg PO HS 03/27/21 04/01/21 Previous Rx's Medication Instructions Recorded cholecalciferol (vitamin D3) 1,000 unit PO QAM #30 cap 10/27/20 lidocaine 1 patch TRANSDERMAL HS #15 ea 11/26/20 ropinirole [Requip XL] 1 mg PO HS #0 tab 11/26/20 clonazepam 0.5 mg PO BID PRN #0 tab 03/28/21 Results & Data (ED) Laboratory Data Result diagrams: 04/03/21 06:15 04/03/21 06:15 Lab Results 04/01/21 04/01/21 04/01/21 Range/Units 21:00 21:00 23:20 WBC 9.82 (4.8-10.8) K/uL RBC 4.55 (4.2-5.4) M/uL Hgb 14.0 (12.0-16.0) g/dL Hct 45.2 (37-47) % MCV 99.3 (80-100) fL MCH 30.8 (25-34) pg MCHC 31.0 L (32-36) g/dL RDW Std Deviation 57.9 H (36.4-46.3) fL RDW Coeff of Adolfo 16.1 H (11.5-14.5) % Plt Count 311 (130-400) K/uL MPV 9.6 (7.4-10.4) fL Immature Gran % (Auto) 0.4 % Neut % (Auto) 66.8 % Lymph % (Auto) 19.8 % Weston % (Auto) 8.0 % Eos % (Auto) 4.7 % Baso % (Auto) 0.3 % Neut # (Auto) 6.56 H (1.4-6.5) K/uL Lymph # (Auto) 1.94 (1.2-3.4) K/uL Weston # (Auto) 0.79 H (0.11-0.59) K/uL Eos # (Auto) 0.46 (0-0.5) K/uL Baso # (Auto) 0.03 (0-0.2) K/uL Immature Gran # (Auto) 0.04 H (0.00-0.02) K/uL Sodium 136 (136-145) mmol/L Potassium (3.5-5.1) mmol/L Chloride 102 (98-107) mmol/L Carbon Dioxide 29 (21-32) mmol/L Anion Gap 6.0 (3-11) BUN 22 H (7-18) mg/dl Creatinine 1.77 H (0.6-1.2) mg/dl Est Cr Clr Drug Dosing 47.9 ml/min Est GFR ( Amer) 34.3 ml/min Est GFR (Non-Af Amer) 29.6 ml/min BUN/Creatinine Ratio 12.1 (10-20) Glucose 128 H (70-99) mg/dl Calcium 9.0 (8.5-10.1) mg/dl Total Bilirubin 0.4 (0.2-1) mg/dl AST (15-37) U/L ALT 29 (12-78) U/L Alkaline Phosphatase 77 (45-117) U/L Total Protein 8.0 (6.4-8.2) gm/dl Albumin 3.5 (3.4-5.0) gm/dl Globulin 4.5 H (2.5-4.0) gm/dl Albumin/Globulin Ratio 0.8 L (0.9-2) TSH 0.811 (0.300-4.500) uIu/ml COVID-19 Eval Order Covid19 at [facility] SARS-CoV-2 (PCR) (Negative) 04/01/21 Range/Units 23:20 WBC (4.8-10.8) K/uL RBC (4.2-5.4) M/uL Hgb (12.0-16.0) g/dL Hct (37-47) % MCV (80-100) fL MCH (25-34) pg MCHC (32-36) g/dL RDW Std Deviation (36.4-46.3) fL RDW Coeff of Adolfo (11.5-14.5) % Plt Count (130-400) K/uL MPV (7.4-10.4) fL Immature Gran % (Auto) % Neut % (Auto) % Lymph % (Auto) % Weston % (Auto) % Eos % (Auto) % Baso % (Auto) % Neut # (Auto) (1.4-6.5) K/uL Lymph # (Auto) (1.2-3.4) K/uL Weston # (Auto) (0.11-0.59) K/uL Eos # (Auto) (0-0.5) K/uL Baso # (Auto) (0-0.2) K/uL Immature Gran # (Auto) (0.00-0.02) K/uL Sodium (136-145) mmol/L Potassium (3.5-5.1) mmol/L Chloride (98-107) mmol/L Carbon Dioxide (21-32) mmol/L Anion Gap (3-11) BUN (7-18) mg/dl Creatinine (0.6-1.2) mg/dl Est Cr Clr Drug Dosing ml/min Est GFR ( Amer) ml/min Est GFR (Non-Af Amer) ml/min BUN/Creatinine Ratio (10-20) Glucose (70-99) mg/dl Calcium (8.5-10.1) mg/dl Total Bilirubin (0.2-1) mg/dl AST (15-37) U/L ALT (12-78) U/L Alkaline Phosphatase (45-117) U/L Total Protein (6.4-8.2) gm/dl Albumin (3.4-5.0) gm/dl Globulin (2.5-4.0) gm/dl Albumin/Globulin Ratio (0.9-2) TSH (0.300-4.500) uIu/ml COVID-19 Eval Order SARS-CoV-2 (PCR) NEGATIVE (Negative) Administered Medications Acetaminophen (Acetaminophen 325 Mg Tab) 650 mg PO Q4H PRN PRN Reason: Pain or Fever Stop: 05/02/21 01:43 Last Admin: 04/02/21 11:16 Dose: 650 mg Documented by: [id number] Acetylcysteine (Acetylcysteine 600 Mg Cap) 600 mg PO Q12H ROBERT Stop: 04/04/21 23:46 Last Admin: 04/03/21 12:33 Dose: 600 mg Documented by: [id number] Clonazepam (Clonazepam 0.5 Mg Tab) 0.5 mg PO BID PRN PRN Reason: anxiety Stop: 05/02/21 01:43 Last Admin: 04/03/21 17:05 Dose: 0.5 mg Documented by: [id number] Admin: 04/02/21 20:56 Dose: 0.5 mg Documented by: [id number] Admin: 04/02/21 11:16 Dose: 0.5 mg Documented by: [id number] Colchicine (Colchicine 0.6 Mg Tab) 0.3 mg PO DAILY ROBERT Stop: 05/02/21 08:59 Last Admin: 04/03/21 07:41 Dose: 0.3 mg Documented by: [id number] Admin: 04/02/21 07:32 Dose: 0.3 mg Documented by: [id number] Cyclobenzaprine HCl (Cyclobenzaprine Hcl 10 Mg Tab) 10 mg PO HS PRN PRN Reason: Muscle Spasm Stop: 05/02/21 02:38 Last Admin: 04/02/21 23:41 Dose: 10 mg Documented by: [id number] Admin: 04/02/21 03:33 Dose: 10 mg Documented by: [id number] Docusate Sodium (Docusate Sodium 100 Mg Cap) 100 mg PO BID PRN PRN Reason: Constipation Stop: 05/02/21 01:43 Last Admin: 04/02/21 21:05 Dose: 100 mg Documented by: [id number] Duloxetine HCl (Duloxetine Hcl 30 Mg Cap) 30 mg PO DAILY [facility] Stop: 05/02/21 08:59 Last Admin: 04/03/21 07:41 Dose: 30 mg Documented by: [id number] Admin: 04/02/21 07:32 Dose: 30 mg Documented by: [id number] Duloxetine HCl (Duloxetine Hcl 60 Mg Cap) 60 mg PO QAM [facility] Stop: 05/02/21 08:59 Last Admin: 04/03/21 07:41 Dose: 60 mg Documented by: [id number] Admin: 04/02/21 07:31 Dose: 60 mg Documented by: [id number] Furosemide (Furosemide 20 Mg Tab) 20 mg PO BID17 [facility] Stop: 05/02/21 08:59 Last Admin: 04/03/21 17:03 Dose: 20 mg Documented by: [id number] Admin: 04/03/21 07:42 Dose: 20 mg Documented by: [id number] Admin: 04/02/21 17:06 Dose: 20 mg Documented by: [id number] Admin: 04/02/21 07:31 Dose: 20 mg Documented by: [id number] Gabapentin (Gabapentin 300 Mg Cap) 300 mg PO TID ROBERT Stop: 05/02/21 08:59 Last Admin: 04/03/21 13:34 Dose: 300 mg Documented by: [id number] Admin: 04/03/21 07:42 Dose: 300 mg Documented by: [id number] Admin: 04/02/21 20:56 Dose: 300 mg Documented by: [id number] Admin: 04/02/21 13:41 Dose: 300 mg Documented by: [id number] Admin: 04/02/21 07:31 Dose: 300 mg Documented by: [id number] Insulin Aspart (Insulin Aspart 100 Units/Ml 3 Ml Pen) 0 units SC [facility]; Protocol Stop: 05/02/21 07:29 Last Admin: 04/03/21 17:51 Dose: 16 units Documented by: [id number] Cosigned by: [id number] Admin: 04/03/21 12:34 Dose: 25 units Documented by: [id number] Cosigned by: [id number] Admin: 04/03/21 08:22 Dose: 11 units Documented by: [id number] Cosigned by: [id number] Admin: 04/02/21 20:57 Dose: Not Given Documented by: [id number] Cosigned by: [id number] Admin: 04/02/21 17:34 Dose: 13 units Documented by: [id number] Cosigned by: [id number] Admin: 04/02/21 12:15 Dose: 18 units Documented by: [id number] Cosigned by: [id number] Admin: 04/02/21 08:54 Dose: 21 units Documented by: [id number] Cosigned by: [id number] Insulin Glargine (Insulin Glargine 100 Unit/Ml Vial) 70 units SC [facility]; Protocol Stop: 05/03/21 16:29 Last Admin: 04/03/21 17:04 Dose: 70 units Documented by: [id number] Cosigned by: [id number] Levothyroxine Sodium (Levothyroxine Sodium 200 Mcg Tablet) [facility] Stop: 05/02/21 06:29 Last Admin: 04/03/21 06:07 Dose: 200 mcg Documented by: [id number] Admin: 04/02/21 06:22 Dose: 200 mcg Documented by: [id number] Levothyroxine Sodium (Levothyroxine Sodium 50 Mcg Tablet) 50 mcg PO DAILYBB [facility] Stop: 05/02/21 06:29 Last Admin: 04/03/21 06:07 Dose: 50 mcg Documented by: [id number] Admin: 04/02/21 06:22 Dose: 50 mcg Documented by: [id number] Lidocaine (Lidocaine 5% 1 Patch) 1 patch TD [facility] Stop: 05/02/21 20:59 Last Admin: 04/02/21 20:57 Dose: 1 patch Documented by: [id number] Magnesium Oxide (Magnesium Oxide 400 Mg Tab) 400 mg PO DAILY [facility] Stop: 05/02/21 08:59 Last Admin: 04/03/21 07:41 Dose: 400 mg Documented by: [id number] Admin: 04/02/21 07:33 Dose: 400 mg Documented by: [id number] Miconazole Nitrate (Miconazole Nitrate Powder 43 Gm) 1 appln EXT BID [facility] Stop: 05/03/21 04:44 Last Admin: 04/03/21 06:07 Dose: 1 appln Documented by: [id number] Miscellaneous (Remove Lidoderm Patch) 1 ea N/A DAILY@0900 [facility] Stop: 05/02/21 08:59 Last Admin: 04/03/21 07:45 Dose: 1 ea Documented by: [id number] Admin: 04/02/21 07:39 Dose: Not Given Documented by: [id number] Miscellaneous (Requip Xl - Order Awaiting Action) 1 ea N/A QS [facility] Stop: 05/02/21 07:59 Last Admin: 04/03/21 13:34 Dose: Not Given Documented by: [id number] Admin: 04/03/21 07:42 Dose: Not Given Documented by: [id number] Admin: 04/03/21 00:01 Dose: Not Given Documented by: [id number] Admin: 04/02/21 13:41 Dose: Not Given Documented by: [id number] Admin: 04/02/21 07:34 Dose: Not Given Documented by: [id number] Pantoprazole Sodium (Pantoprazole 40 Mg Tab) 40 mg PO [facility] Stop: 05/02/21 20:59 Last Admin: 04/02/21 20:56 Dose: 40 mg Documented by: [id number] Tramadol HCl (Tramadol Hcl 50 Mg Tablet) 50 mg PO Q8H PRN PRN Reason: Pain Stop: 05/02/21 01:43 Last Admin: 04/03/21 13:34 Dose: 50 mg Documented by: [id number] Admin: 04/02/21 23:40 Dose: 50 mg Documented by: [id number] Admin: 04/02/21 05:07 Dose: 50 mg Documented by: [id number] Trazodone HCl (Trazodone Hcl 50 Mg Tab) 50 mg PO [facility] Stop: 05/02/21 20:59 Last Admin: 04/02/21 20:56 Dose: 50 mg Documented by: [id number] Vitamin D (Cholecalciferol 1,000 Units 25 Mcg Tab) [facility] Stop: 05/02/21 08:59 Last Admin: 04/03/21 07:42 Dose: 1,000 units Documented by: [id number] Admin: 04/02/21 07:33 Dose: 1,000 units Documented by: [id number] Discontinued Medications Sodium Chloride (Nss 1000ml) 1,000 mls @ 999 mls/hr IV .Q1H1M ONE Stop: 04/01/21 21:32 Last Infusion: 04/01/21 22:14 Dose: 0 mls/hr Documented by: [id number] Admin: 04/01/21 21:03 Dose: 999 mls/hr Documented by: [id number] Sodium Chloride (Nss 1000ml) 1,000 mls @ 100 mls/hr IV .Q10H [facility] Stop: 04/02/21 11:43 Last Infusion: 04/02/21 12:27 Dose: 0 mls/hr Documented by: [id number] Admin: 04/02/21 02:20 Dose: 100 mls/hr Documented by: [id number] Insulin Glargine (Insulin Glargine 100 Unit/Ml Vial) 20 units SC [facility]; Protocol Stop: 04/02/21 08:31 Last Admin: 04/02/21 08:53 Dose: 20 units Documented by: [id number] Cosigned by: [id number] Insulin Glargine (Insulin Glargine 100 Unit/Ml Vial) 60 units SC [facility]; Protocol Stop: 05/02/21 20:59 Last Admin: 04/02/21 20:56 Dose: 60 units Documented by: [id number] Cosigned by: [id number] Midodrine (Midodrine Hcl 10 Mg Tab) 10 mg PO NOW [facility] Stop: 04/01/21 20:38 Last Admin: 04/01/21 21:03 Dose: 10 mg Documented by: [id number] Midodrine (Midodrine Hcl 2.5 Mg Tab) 5 mg PO TID@0800,1200,1700 [facility] Stop: 05/02/21 07:59 Last Admin: 04/03/21 08:10 Dose: Not Given Documented by: [id number] Admin: 04/02/21 17:07 Dose: Not Given Documented by: [id number] Admin: 04/02/21 12:51 Dose: Not Given Documented by: [id number] Admin: 04/02/21 08:36 Dose: Not Given Documented by: [id number] Discharge Plan Visit Data Chief Complaint: Fall Stated Complaint: G.L. FALL HIT HEAD ED Provider: Zeb Griggs Discharge Problem: Syncope, Acute hypotension Patient Disposition: Admitted As Inpatient Discharge Instructions Interventions: ED Discharge Assessment Last Done: 04/02/21 01:02 Discharge Problem: Syncope Qualifiers: Syncope type: unspecified Qualified Code(s): R55 - Syncope and collapse
[2021-04-03] MEDS: LIDOCAINE 5% 1 PATCH TD SCH (20:21)
[2021-04-03] MEDS: traZODone HCL 50 MG TAB PO SCH (20:22)
[2021-04-03] MEDS: PANTOprazole 40 MG TAB PO SCH (20:23)
[2021-04-03] MEDS ORDERED: ATORVASTATIN 40 MG TAB PO SCH (21:00)
[2021-04-03] MEDS ORDERED: ZOLPIDEM TARTRATE 5 MG TAB PO STA (22:18)
[2021-04-04] MEDS: traMADol HCL 50 MG TABLET PO PRN ×2 (01:40→21:37)
[2021-04-04] MEDS: DOCUSATE SODIUM 100 MG CAP PO PRN (03:19)
[2021-04-04] MEDS: LEVOTHYROXINE SODIUM 50 MCG TABLET PO SCH (05:41)
[2021-04-04] MEDS: LEVOTHYROXINE SODIUM 200 MCG TABLET PO SCH (05:41)
[2021-04-04] MEDS ORDERED: SODIUM CHLORIDE 0.9% 1000ML 1,000 ML IV SCH (05:45)
[2021-04-04] MEDS ORDERED: SODIUM BICARBONATE 8.4% 100 MEQ in WATER, STERILE 1,000 ML IV SCH (05:45)
[2021-04-04 07:05] LABS: Hematocrit (blood only) 41.8 % (37-47); Hemoglobin 13.1 g/dL (12.0-16.0); Mean Corpuscular Hemoglobin 30.5 pg (25-34); Mean Corpuscular Hgb Conc 31.3 g/dL (32-36); Mean Corpuscular Volume 97.2 fL (80-100); Mean Platelet Volume 9.5 fL (7.4-10.4); Platelet Count 270 K/uL (130-400); RDW Coefficient of Variation 15.6 % (11.5-14.5); RDW Standard Deviation 55.1 fL (36.4-46.3); White Blood Count 7.78 K/uL (4.8-10.8)
[2021-04-04] MEDS: REQUIP XL - ORDER AWAITING ACTION SCH ×2 (07:32→15:25)
[2021-04-04 07:43] LABS: BUN Creatinine Ratio 19.8 (10-20); Calcium 8.6 mg/dl (8.5-10.1); Creatinine Clr Calc Pharmacy 56.1 ml/min; Est GFR (African American) 42.3 ml/min; Est GFR (Non-African American) 36.5 ml/min; Potassium 4.1 mmol/L (3.5-5.1)
[2021-04-04] MEDS: FUROSEMIDE 20 MG TAB PO SCH ×2 (08:21→17:31)
[2021-04-04] MEDS: COLCHICINE 0.6 MG TAB PO SCH (08:22)
[2021-04-04] MEDS: DULoxetine HCL 30 MG CAP PO SCH (08:22)
[2021-04-04] MEDS: GABAPENTIN 300 MG CAP PO SCH ×3 (08:23→21:23)
[2021-04-04] MEDS: DULoxetine HCL 60 MG CAP PO SCH (08:23)
[2021-04-04] MEDS: CHOLECALCIFEROL 1,000 UNITS 25 MCG TAB PO SCH (08:23)
[2021-04-04] MEDS: MAGNESIUM OXIDE 400 MG TAB PO SCH (08:23)
[2021-04-04] MEDS: INSULIN ASPART 100 UNITS/ML 3 ML PEN SC SCH ×4 (08:25→21:27)
[2021-04-04] MEDS: MICONAZOLE NITRATE POWDER 43 GM EXT SCH ×2 (08:27→21:24)
--- NOTE | 2021-04-04 09:10 | Hospitalist Progress Note ---
Date of Service April 04, 2021 Assessment & Plan (1) Fall: (2) Orthostasis: Fall at home. Has had recurrent episodes of dizziness. Work-up in the past with CT head and MRI has been unremarkable including echocardiogram. I obtained carotid duplex which revealed greater than 70% stenosis within the mid right ICA and 50 to 59% stenosis within proximal left ICA as well as retrograde flow within the right vertebral artery suggesting possibility of subclavian steal syndrome. Discussed with vascular surgeon Dr. Tang. Appreciate evaluation. Vascular recommended getting a CT angio of the chest for further evaluation. Awaiting CTA Will follow-up final vascular surgery evaluations and recommendations Discussed statin therapy with patient. She stated she had been intolerant in the past. Confirmed this from cardiology outpatient note from 01/12/2019 PT/OT evaluation noted. Rehab recommended (3) Diabetes mellitus, type II: Carbohydrate controlled diet. Manage blood glucose with insulin per protocol. (4) CHF (congestive heart failure): History of chronic diastolic heart failure. Currently euvolemic On Lasix (5) Hypothyroidism: Continue levothyroxine (6) RLS (restless legs syndrome): Continue ropinirole (7) CKD (chronic kidney disease), stage III: Creatinine at baseline. Avoid nephrotoxins Monitor (8) History of pulmonary embolism: Status post IVC filter (9) Hypoxia: (10) ELISSA on CPAP: Chronic hypoxia on oxygen. Continue oxygen supplementation Continue CPAP at bedtime (11) DVT prophylaxis: SCD Admission and Anticipated Discharge Date Admission Date: April 02, 2021 Subjective 65-year-old female with past medical history significant for type 2 diabetes; hyperlipidemia; postsurgical hypothyroidism; hyperparathyroidism secondary to renal disease; obstructive sleep apnea, on CPAP at bedtime; history of PE, DVT, status post IVC filter, secondary to heparin-induced thrombocytopenia; chronic respiratory failure on home oxygen; history of tobacco abuse; fibromyalgia; restless legs syndrome; hypertension; chronic kidney disease stage III; chronic diastolic CHF; history of vasculitis; morbid obesity; GERD; osteoarthritis; lumbar radiculopathy; mild episode of depression, generalized anxiety disorder; statin intolerance; abnormality of gait who presents after a fall at home. Patient seen and examined this morning. No more dizziness at this time Denies any other complaints Review of Systems Review of Systems: All systems reviewed & are unremarkable except as noted in Subjective Physical Exam Constitutional: + well hydrated and + obese; no acute distress Eyes: PERRL, conjunctivae normal, anicteric sclerae ENMT: external ear and nose normal, oropharynx normal Respiratory: normal respiratory effort, lungs clear to auscultation Cardiovascular: Rate/Rhythm: regular rate and regular rhythm S1 S2 Gastrointestinal (Abdomen): normal bowel sounds, soft, nontender, no hepatosplenomegaly Musculoskeletal: no cyanosis or clubbing, extremities motor strength 5/5 Neurologic: PERRL, EOMI, accommodation nl, no face palsy, no dysarthria Psychiatric: A+Ox3, euthymic affect Genitourinary: no CVA tenderness Results & Data Results & Data ([facility]) Vital Signs (Past 12 Hours) Vital Signs Temp Pulse Pulse Resp BP Pulse Ox 04/04/21 07:46 82 04/04/21 07:25 36.8 C 80 18 152/73 H 91 04/04/21 04:45 36.8 C 68 20 124/74 94 04/04/21 02:59 76 18 94 04/03/21 23:28 85 04/03/21 23:16 75 15 93 04/03/21 22:59 37.2 C 86 18 143/80 H 95 Laboratory Results Abnormal lab results 04/03/21 04/03/21 04/03/21 Range/Units 06:15 11:46 16:22 MCHC (32-36) g/dL RDW Std Deviation (36.4-46.3) fL RDW Coeff of Adolfo (11.5-14.5) % BUN (7-18) mg/dl Creatinine (0.6-1.2) mg/dl Glucose (70-99) mg/dl POC Glucose 159 H 142 H (70-99) mg/dl Triglycerides 211 H (0-150) mg/dl 04/03/21 04/04/21 04/04/21 Range/Units 19:57 06:48 06:48 MCHC 31.3 L (32-36) g/dL RDW Std Deviation 55.1 H (36.4-46.3) fL RDW Coeff of Adlofo 15.6 H (11.5-14.5) % BUN 30 H (7-18) mg/dl Creatinine 1.49 H (0.6-1.2) mg/dl Glucose 127 H (70-99) mg/dl POC Glucose 117 H (70-99) mg/dl Triglycerides (0-150) mg/dl 04/04/21 Range/Units 07:43 MCHC (32-36) g/dL RDW Std Deviation (36.4-46.3) fL RDW Coeff of Adolfo (11.5-14.5) % BUN (7-18) mg/dl Creatinine (0.6-1.2) mg/dl Glucose (70-99) mg/dl POC Glucose 138 H (70-99) mg/dl Triglycerides (0-150) mg/dl (1) CHF (congestive heart failure) Heart failure chronicity: acute on chronic Heart failure type: unspecified Qualified Code(s): I50.9 - Heart failure, unspecified
[2021-04-04] MEDS ORDERED: OPTIRAY 320 125ml IV ONE (10:05)
[2021-04-04] MEDS: clonazePAM 0.5 MG TAB PO PRN (11:32)
[2021-04-04] MEDS: ACETYLCYSTEINE 600 MG CAP PO SCH (11:33)
[2021-04-04] MEDS: traZODone HCL 50 MG TAB PO SCH (21:23)
[2021-04-04] MEDS: PANTOprazole 40 MG TAB PO SCH (21:23)
[2021-04-04] MEDS: INSULIN GLARGINE 100 UNIT/ML VIAL SC SCH (21:27)
[2021-04-04] MEDS: LIDOCAINE 5% 1 PATCH TD SCH (21:32)
--- NOTE | 2021-04-04 22:36 | CT Scan Report ---
CT angio chest wo/w con CT DOSE: 2576.20 mGy.cm CLINICAL HISTORY: subclavian art stenosis TECHNIQUE: A dose lowering technique was utilized adhering to the principles of ALARA. COMPARISON STUDY: July 19, 2020 FINDINGS: There is no axillary, supra clavicle or internal mammary lymphadenopathy seen. Diffuse slightly promi nent mediastinal lymph nodes measuring up to 1.2 cm in the subcarinal region. Findings are similar to prior study. Right thyroid lobe is not visualized, probably surgically absent. Visualized portion of the left thyr oid lobe shows no evidence of focal lesions. There is mild fat containing hiatal hernia is seen. Opacification within the aortic arch is suboptimal. Scattered calcifications of aortic wall are seen. Ascending and descending portion of thoracic aorta is normal in caliber without evidence of dissecti on or aneurysmal dilatation. Heavy calcifications at the origin of the greater vessels are seen. Degr ee of stenosis is difficult to evaluate due to blooming artifact from high calcium content within the plaques. Proximal portion of the right subclavian artery is patent without significant stenosis. Distal aspect is difficult to assess due to beam hardening artifact from intravenous contrast in adjacent subclavi an vein. Left subclavian artery is normally opacified. There is minimal, less than 50% stenosis of the midport ion of the left subclavian artery is seen between the first rib and right scalene muscle (7/26). Heart is normal in size without evidence of pericardial effusion. Heavy coronary calcifications are s een. Tracheobronchial tree is patent. Redemonstration of patchy areas of peripheral septal thickening asso ciated with groundglass attenuation, minimal traction bronchiectasis and slight architectural distort ion. Lung bases are less affected by fibrotic changes within upper portions of bilateral lungs. No definite honeycombing is seen. No large infiltrates or consolidative lesion or pleural effusion is seen. No pleural effusion demonstrated. No definite large pulmonary nodules are seen however evaluation is limited due to respiratory motion artifact and low inspiratory effort. Limited evaluation of upper abdominal viscera shows no evidence of acute abnormalities, status post c holecystectomy and hepatic steatosis. Evaluation of osseous structures shows multilevel degenerative changes of the spine. IMPRESSION: 1. Minimal, less than 50% stenosis of the left subclavian artery is seen between first rib and scale ne muscle. No focal occlusion or dissection is seen however evaluation is limited due to suboptimal o pacification within the aortic arch. 2. Interstitial pulmonary fibrosis, non-UIP pattern, findings are not significantly changed since pr ior study. 3. Hepatic steatosis. 4. Atherosclerosis. 5. Status post thyroid surgery. Please correlate above-mentioned findings with prior history. ACT 112: Negative or not required by law. The above report was generated using voice recognition software. It may contain grammatical, syntax o r spelling errors. Electronically signed by: Yenifer Koenig DO 04/04/2021 10:35 PM
[2021-04-05] MEDS: REQUIP XL - ORDER AWAITING ACTION SCH ×3 (00:05→15:45)
[2021-04-05] MEDS ORDERED: oxyCODONE HCL IR 5 MG TAB (IMMEDIATE RELEASE) PO STA (01:58)
[2021-04-05] MEDS: LEVOTHYROXINE SODIUM 50 MCG TABLET PO SCH (06:05)
[2021-04-05] MEDS: LEVOTHYROXINE SODIUM 200 MCG TABLET PO SCH (06:06)
[2021-04-05] MEDS: INSULIN ASPART 100 UNITS/ML 3 ML PEN SC SCH ×4 (08:55→21:16)
[2021-04-05] MEDS: GABAPENTIN 300 MG CAP PO SCH ×3 (08:58→21:04)
[2021-04-05] MEDS: FUROSEMIDE 20 MG TAB PO SCH ×2 (08:58→17:13)
[2021-04-05] MEDS: DULoxetine HCL 30 MG CAP PO SCH (08:59)
[2021-04-05] MEDS: CHOLECALCIFEROL 1,000 UNITS 25 MCG TAB PO SCH (09:02)
[2021-04-05] MEDS: COLCHICINE 0.6 MG TAB PO SCH (09:02)
[2021-04-05] MEDS: MAGNESIUM OXIDE 400 MG TAB PO SCH (09:03)
[2021-04-05] MEDS: DULoxetine HCL 60 MG CAP PO SCH (09:04)
[2021-04-05 09:19] LABS: BUN Creatinine Ratio 19.3 (10-20); Calcium 8.4 mg/dl (8.5-10.1); Creatinine Clr Calc Pharmacy 56.6 ml/min; Est GFR (African American) 43.3 ml/min; Est GFR (Non-African American) 37.4 ml/min; Potassium 3.3 mmol/L (3.5-5.1)
[2021-04-05] MEDS: ACETYLCYSTEINE 600 MG CAP PO SCH (09:41)
[2021-04-05] MEDS: MICONAZOLE NITRATE POWDER 43 GM EXT SCH ×2 (09:43→21:05)
[2021-04-05] MEDS ORDERED: POTASSIUM CHLORIDE CRTAB 20 MEQ TABCR PO STA (10:33)
--- NOTE | 2021-04-05 10:35 | Hospitalist Progress Note ---
Date of Service April 05, 2021 Assessment & Plan (1) Fall: (2) Orthostasis: Fall at home. Has had recurrent episodes of dizziness. Work-up in the past with CT head and MRI has been unremarkable including echocardiogram. I obtained carotid duplex which revealed greater than 70% stenosis within the mid right ICA and 50 to 59% stenosis within proximal left ICA as well as retrograde flow within the right vertebral artery suggesting possibility of subclavian steal syndrome. Discussed with vascular surgeon Dr. Tang. Evaluation appreciated Vascular recommended getting a CT angio of the chest for further evaluation. CT angio showed minimal less than 50% stenosis in left subclavian artery between first rib and scalene muscle, No focal occlusion or dissection Will follow-up final vascular surgery evaluations and recommendations Discussed statin therapy with patient. She stated she had been intolerant in the past. Confirmed this from cardiology outpatient note from 01/12/2019 PT/OT evaluation noted. Rehab recommended. Per [facility] management [facility], [facility] will [facility] tomorrow (3) Diabetes mellitus, type II: Carbohydrate controlled diet. Manage blood glucose with insulin per protocol. (4) CHF (congestive heart failure): History of chronic diastolic heart failure. Currently euvolemic On Lasix (5) Hypothyroidism: Continue levothyroxine (6) RLS (restless legs syndrome): Continue ropinirole (7) CKD (chronic kidney disease), stage III: Creatinine at baseline. Avoid nephrotoxins Monitor Mildly hypokalemic today with potassium of 3.3 replete and monitor (8) History of pulmonary embolism: Status post IVC filter (9) Hypoxia: (10) ELISSA on CPAP: Chronic hypoxia on oxygen. Continue oxygen supplementation Continue CPAP at bedtime (11) DVT prophylaxis: SCD Admission and Anticipated Discharge Date Admission Date: April 02, 2021 Subjective 65-year-old female with past medical history significant for type 2 diabetes; hyperlipidemia; postsurgical hypothyroidism; hyperparathyroidism secondary to renal disease; obstructive sleep apnea, on CPAP at bedtime; history of PE, DVT, status post IVC filter, secondary to heparin-induced thrombocytopenia; chronic respiratory failure on home oxygen; history of tobacco abuse; fibromyalgia; restless legs syndrome; hypertension; chronic kidney disease stage III; chronic diastolic CHF; history of vasculitis; morbid obesity; GERD; osteoarthritis; lumbar radiculopathy; mild episode of depression, generalized anxiety disorder; statin intolerance; abnormality of gait who presents after a fall at home. Patient seen and examined this morning. No more dizziness at this time Reported some exacerbation of her lower extremity paresthesias overnight but currently improved Denied any other complaints at this time Review of Systems Review of Systems: All systems reviewed & are unremarkable except as noted in Subjective Physical Exam Constitutional: + well hydrated and + obese; no acute distress Eyes: PERRL, conjunctivae normal, anicteric sclerae ENMT: external ear and nose normal, oropharynx normal Respiratory: normal respiratory effort, lungs clear to auscultation Cardiovascular: Rate/Rhythm: regular rate and regular rhythm S1 S2.No pedal edema Gastrointestinal (Abdomen): normal bowel sounds, soft, nontender, no hepatosplenomegaly Musculoskeletal: no cyanosis or clubbing, extremities motor strength 5/5 Neurologic: PERRL, EOMI, accommodation nl, no face palsy, no dysarthria Psychiatric: A+Ox3, euthymic affect Genitourinary: no CVA tenderness Results & Data Results & Data ([facility]) Vital Signs (Past 12 Hours) Vital Signs Temp Pulse Pulse Resp BP Pulse Ox 04/05/21 07:39 36.7 C 83 18 132/69 93 04/05/21 04:10 36.9 C 84 16 132/72 98 04/05/21 01:50 83 04/04/21 23:10 72 18 90 Laboratory Results Abnormal lab results 04/04/21 04/04/21 04/05/21 Range/Units 11:37 16:36 07:28 Potassium (3.5-5.1) mmol/L BUN (7-18) mg/dl Creatinine (0.6-1.2) mg/dl Glucose (70-99) mg/dl POC Glucose 124 H 103 H 111 H (70-99) mg/dl Calcium (8.5-10.1) mg/dl 04/05/21 Range/Units 08:02 Potassium 3.3 L D (3.5-5.1) mmol/L BUN 28 H (7-18) mg/dl Creatinine 1.46 H (0.6-1.2) mg/dl Glucose 111 H (70-99) mg/dl POC Glucose (70-99) mg/dl Calcium 8.4 L (8.5-10.1) mg/dl (1) CHF (congestive heart failure) Heart failure chronicity: acute on chronic Heart failure type: unspecified Qualified Code(s): I50.9 - Heart failure, unspecified
--- NOTE | 2021-04-05 13:31 | Pharmacy Report ---
Pharmacy Glycemic Short Note 2 - Date of Service April 05, 2021 - Glycemic Short BSG Results (Last 24 hours): 04/04/21 04/04/21 04/05/21 16:36 20:34 07:28 Glucose POC Glucose 103 H 73 111 H 04/05/21 04/05/21 08:02 11:29 Glucose 111 H POC Glucose 171 H OUTPATIENT ANTIDIABETIC REGIMEN: * Trulicity 3mg SQ weekly * Novolog 40 units TID with meals (up to 200 units/day) * Tresiba 60 units HS (took dose prior to admission last night) ASSESSMENT: 04/05/21 * Patient's blood sugars yesterday were [phone] mg/dL. Fasting today was 111 mg/dL. * Patient received 118 units of insulin yesterday with 70 units of basal and 48 units of bolus. * Reduce basal since fasting BSG trending downwards. * Loosen CR as BSGs trend downwards throughout the day. 04/02/21 * 65 year old female, admitted after fall, A1c 8.4%, on basal bolus insulin at home as listed above * Fasting blood sugar 184mg/dl - will give additional basal dose this morning * Blood sugar sandie to 194mg/dl at lunch, will tighten CR * no additional factors for insulin resistance at this time PLAN FOR INPATIENT GLYCEMIC CONTROL: * Hold outpatient Trulicity * Basal insulin * 60 units HS * Bolus insulin * NovoLog per scale ACHS or Q6hrs while NPO * Goal Range: Low 110 mg/dL - High 140 mg/dL * Correction Factor: 10 mg/dL/unit * TIGHTEN: Nutritional / Prandial insulin per carb ratio of 1 unit per 3 grams CHO consumed
[2021-04-05] MEDS ORDERED: diphenhydrAMINE Capsule 25 MG CAP PO PRN (16:05)
[2021-04-05] MEDS ORDERED: INSULIN GLARGINE 100 UNIT/ML VIAL SC SCH (21:00)
[2021-04-05] MEDS: LIDOCAINE 5% 1 PATCH TD SCH (21:05)
[2021-04-05] MEDS: PANTOprazole 40 MG TAB PO SCH (21:06)
[2021-04-05] MEDS: traZODone HCL 50 MG TAB PO SCH (21:06)
[2021-04-05] MEDS: traMADol HCL 50 MG TABLET PO PRN (21:13)
[2021-04-05] MEDS ORDERED: rOPINIRole HCL 1 MG TABLET PO STA (22:27)
[2021-04-06] MEDS: REQUIP XL - ORDER AWAITING ACTION SCH ×3 (00:02→17:05)
[2021-04-06] MEDS: CYCLOBENZAPRINE HCL 10 MG TAB PO PRN (01:39)
[2021-04-06] MEDS: traMADol HCL 50 MG TABLET PO PRN ×2 (06:24→22:16)
[2021-04-06] MEDS: LEVOTHYROXINE SODIUM 200 MCG TABLET PO SCH (06:35)
[2021-04-06] MEDS: LEVOTHYROXINE SODIUM 50 MCG TABLET PO SCH (06:36)
[2021-04-06 07:23] LABS: BUN Creatinine Ratio 16.8 (10-20); Calcium 8.4 mg/dl (8.5-10.1); Creatinine Clr Calc Pharmacy 51.8 ml/min; Est GFR (African American) 38.8 ml/min; Est GFR (Non-African American) 33.5 ml/min; Magnesium 1.6 mg/dl (1.8-2.4); Potassium 3.6 mmol/L (3.5-5.1)
[2021-04-06] MEDS: CHOLECALCIFEROL 1,000 UNITS 25 MCG TAB PO SCH (08:51)
[2021-04-06] MEDS: COLCHICINE 0.6 MG TAB PO SCH (08:51)
[2021-04-06] MEDS: DULoxetine HCL 30 MG CAP PO SCH (08:52)
[2021-04-06] MEDS: FUROSEMIDE 20 MG TAB PO SCH ×2 (08:52→17:47)
[2021-04-06] MEDS: GABAPENTIN 300 MG CAP PO SCH ×3 (08:52→20:26)
[2021-04-06] MEDS: MAGNESIUM OXIDE 400 MG TAB PO SCH (08:52)
[2021-04-06] MEDS: DULoxetine HCL 60 MG CAP PO SCH (08:52)
[2021-04-06] MEDS: MICONAZOLE NITRATE POWDER 43 GM EXT SCH ×2 (08:53→20:29)
[2021-04-06] MEDS: INSULIN ASPART 100 UNITS/ML 3 ML PEN SC SCH ×4 (08:53→22:27)
--- NOTE | 2021-04-06 10:34 | Communication Note ---
Date of Service: April 06, 2021 Pt's CTA chest does not demonstrate significant stenosis of either subclavian artery. No vascular surgical intervention recommended at this time. Made pat kelvin aware. She expresses understanding.
--- NOTE | 2021-04-06 13:27 | Pharmacy Report ---
Pharmacy Glycemic Short Note 2 - Date of Service April 06, 2021 - Glycemic Short BSG Results (Last 24 hours): 04/05/21 04/05/21 04/06/21 16:35 20:48 06:18 Glucose 143 H POC Glucose 121 H 200 H 04/06/21 04/06/21 07:48 11:46 Glucose POC Glucose 153 H 180 H OUTPATIENT ANTIDIABETIC REGIMEN: * Trulicity 3mg SQ weekly * Novolog 40 units TID with meals (up to 200 units/day) * Tresiba 60 units HS (took dose prior to admission last night) ASSESSMENT: 04/06/21 * Patient's blood sugars yesterday were [phone] mg/dL. Fasting today was 153 mg/dL. * Patient received 126 units of insulin yesterday with 60 units of basal and 66 units of bolus. * Increase basal by 10% since fasting trending upwards. Believe 70 units though is too aggressive. * Tighten Carbohydrate ratio back to previous number since BSGs continue to trend upwards. 04/05/21 * Patient's blood sugars yesterday were [phone] mg/dL. Fasting today was 111 mg/dL. * Patient received 118 units of insulin yesterday with 70 units of basal and 48 units of bolus. * Reduce basal since fasting BSG trending downwards. * Loosen CR as BSGs trend downwards throughout the day. 04/02/21 * 65 year old female, admitted after fall, A1c 8.4%, on basal bolus insulin at home as listed above * Fasting blood sugar 184mg/dl - will give additional basal dose this morning * Blood sugar sandie to 194mg/dl at lunch, will tighten CR * no additional factors for insulin resistance at this time PLAN FOR INPATIENT GLYCEMIC CONTROL: * Hold outpatient Trulicity * Basal insulin * 65 units HS * Bolus insulin * NovoLog per scale ACHS or Q6hrs while NPO * Goal Range: Low 110 mg/dL - High 140 mg/dL * Correction Factor: 10 mg/dL/unit * TIGHTEN: Nutritional / Prandial insulin per carb ratio of 1 unit per 2.5 grams CHO consumed DISCHARGE RECOMMENDATIONS * Patient's HbA1C is slightly elevated above goal range (goal would be <8% for patient with current comorbidities). * Regimen inhouse is similar to outpatient regimen. * Recommend continuing Trulicity. * Recommend working with outpatient provider via blood sugar logs to evaluate where blood sugars are elevated throughout the day. Then could adjust insulin appropriately.
--- NOTE | 2021-04-06 15:39 | Hospitalist Progress Note ---
Date of Service April 06, 2021 Assessment & Plan (1) Fall: As below PT/OT evaluation noted. Rehab recommended. Per case management notes, [facility] will [facility] tomorrow (2) Orthostasis: Fall at home secondary to orthostatic hypotension Has had recurrent episodes of dizziness. Work-up in the past with CT head and MRI has been unremarkable including echocardiogram. Has been getting PT and OT evaluation and was recommended rehab Strongly advised to take precaution to avoid falls Bilateral carotid stenosis I obtained carotid duplex which revealed greater than 70% stenosis within the mid right ICA and 50 to 59% stenosis within proximal left ICA as well as retrograde flow within the right vertebral artery suggesting possibility of subclavian steal syndrome. CTA did show less than 50% stenosis of the left subclavian artery between first rib and scalene muscle. Appreciate vascular surgery input and recommendation for no further measures for this Hyperlipidemia Discussed statin therapy with patient. She stated she had been intolerant in the past. Confirmed this from cardiology outpatient note from 01/12/2019 She cannot try omega-3 fish well [id number] (3) Diabetes mellitus, type II: Carbohydrate controlled diet. Manage blood glucose with insulin per protocol. (4) CHF (congestive heart failure): History of chronic diastolic heart failure. Currently euvolemic On Lasix Remains free of symptoms (5) Hypothyroidism: Continue levothyroxine (6) RLS (restless legs syndrome): Continue ropinirole (7) CKD (chronic kidney disease), stage III: Creatinine at baseline. Avoid nephrotoxins Monitor Hypokalemia Supplemented (8) History of pulmonary embolism: Status post IVC filter (9) Hypoxia: (10) ELISSA on CPAP: Chronic hypoxia on oxygen. Continue oxygen supplementation Continue CPAP at bedtime (11) DVT prophylaxis: SCD Likely discharge tomorrow to [facility] if accepted Admission and Anticipated Discharge Date Admission Date: April 02, 2021 Subjective 04/06/2021 The patient was seen and examined in medical telemetry unit She remains stable but generally weak and lethargic Denies any other symptoms She was seen by Dr. Tang and there is no significant subclavian stenosis on CTA scan and she was cleared Review of Systems Review of Systems: All systems reviewed and are unremarkable as noted below Respiratory: + dyspnea on exertion Physical Exam Physical Exam: Sitting on a chair with minimal shortness of breath at rest Constitutional: well developed, well nourished, + ill appearing and + morbidly obese Eyes: PERRL, conjunctivae normal, anicteric sclerae ENMT: external ear and nose normal, oropharynx normal Neck: trachea midline, no thyromegaly Respiratory: + respiratory distress (Minimal distress at rest) Auscultation: + diminished lung sounds and + crackles; no wheezes Cardiovascular: Rate/Rhythm: regular rate and regular rhythm Heart Sounds: no murmur Extremities: + edema (1+ edema bilaterally) Gastrointestinal (Abdomen): Inspection/Auscultation: + abdomen distended and normal bowel sounds Percussion/Palpation: abdomen soft; abdomen nontender Musculoskeletal: No acute arthritis in any joint Neurologic: Alert, awake and oriented x3 Psychiatric: A+Ox3, euthymic affect Lymphatic: no cervical or axillary lymphadenopathy Results & Data Results & Data ([facility]) Vital Signs (Past 12 Hours) Vital Signs Temp Pulse Pulse Resp BP Pulse Ox 04/06/21 11:18 36.7 C 87 16 118/62 93 04/06/21 07:58 88 04/06/21 07:39 36.7 C 83 16 134/77 93 Laboratory Results [facility] [place] 04/06/21 06:18 Sodium 139 Potassium 3.6 Chloride 103 Carbon Dioxide 30 BUN 27 H Creatinine 1.60 H Glucose 143 H Calcium 8.4 L Medications Administered Current Inpatient Medications Acetaminophen (Acetaminophen 325 Mg Tab) 650 mg PO Q4H PRN PRN Reason: Pain or Fever Stop: 05/02/21 01:43 Last Admin: 04/02/21 11:16 Dose: 650 mg Documented by: Clonazepam (Clonazepam 0.5 Mg Tab) 0.5 mg PO BID PRN PRN Reason: anxiety Stop: 05/02/21 01:43 Last Admin: 04/04/21 11:32 Dose: 0.5 mg Documented by: Colchicine (Colchicine 0.6 Mg Tab) 0.3 mg PO DAILY [facility] Stop: 05/02/21 08:59 Last Admin: 04/06/21 08:51 Dose: 0.3 mg Documented by: Cyclobenzaprine HCl (Cyclobenzaprine Hcl 10 Mg Tab) 10 mg PO HS PRN PRN Reason: Muscle Spasm Stop: 05/02/21 02:38 Last Admin: 04/06/21 01:39 Dose: 10 mg Documented by: Dextrose (Dextrose 50% 50 Ml Syringe) 25 - 50 ml IV UD PRN; Protocol PRN Reason: Hypoglycemia Protocol Stop: 05/02/21 02:44 Dicyclomine HCl (Dicyclomine Hcl 20 Mg Tab) 20 mg PO QID PRN PRN Reason: abdominal pain Stop: 05/02/21 01:43 Diphenhydramine HCl (Diphenhydramine Capsule 25 Mg Cap) 25 mg PO BID PRN PRN Reason: Itching Stop: 05/05/21 16:04 Last Admin: 04/05/21 17:12 Dose: 25 mg Documented by: Docusate Sodium (Docusate Sodium 100 Mg Cap) 100 mg PO BID PRN PRN Reason: Constipation Stop: 05/02/21 01:43 Last Admin: 04/04/21 03:19 Dose: 100 mg Documented by: Duloxetine HCl (Duloxetine Hcl 30 Mg Cap) 30 mg PO DAILY [facility] Stop: 05/02/21 08:59 Last Admin: 04/06/21 08:52 Dose: 30 mg Documented by: Duloxetine HCl (Duloxetine Hcl 60 Mg Cap) 60 mg PO QAM [facility] Stop: 05/02/21 08:59 Last Admin: 04/06/21 08:52 Dose: 60 mg Documented by: Furosemide (Furosemide 20 Mg Tab) 20 mg PO BID17 [facility] Stop: 05/02/21 08:59 Last Admin: 04/06/21 08:52 Dose: 20 mg Documented by: Gabapentin (Gabapentin 300 Mg Cap) 300 mg PO TID [facility] Stop: 05/02/21 08:59 Last Admin: 04/06/21 13:11 Dose: 300 mg Documented by: Glucagon (Glucagon For Inj 1 Mg Vial) 1 mg IM UD PRN; Protocol PRN Reason: Hypoglycemia Protocol Stop: 05/02/21 02:44 Glucose (Glucose 40% Gel 15 Gm Tube) 15 - 30 gm PO UD PRN; Protocol PRN Reason: Hypoglycemia Protocol Stop: 05/02/21 02:44 Glucose (Glucose 10 Tabs/Tube) 4 - 8 tabs PO UD PRN; Protocol PRN Reason: Hypoglycemia Protocol Stop: 05/02/21 02:44 Insulin Aspart (Insulin Aspart 100 Units/Ml 3 Ml Pen) 0 units SC [facility]; Protocol Stop: 05/02/21 07:29 Last Admin: 04/06/21 13:10 Dose: 10 units Documented by: Insulin Glargine (Insulin Glargine 100 Unit/Ml Vial) 65 units SC [facility]; Protocol Stop: 05/06/21 20:59 Levothyroxine Sodium (Levothyroxine Sodium 200 Mcg Tablet) [facility]: 05/02/21 06:29 Last Admin: 04/06/21 06:35 Dose: 200 mcg Documented by: Levothyroxine Sodium (Levothyroxine Sodium 50 Mcg Tablet) [facility] Stop: 05/02/21 06:29 Last Admin: 04/06/21 06:36 Dose: 50 mcg Documented by: Lidocaine (Lidocaine 5% 1 Patch) 1 patch TD [facility] Stop: 05/02/21 20:59 Last Admin: 04/05/21 21:05 Dose: 1 patch Documented by: Magnesium Oxide (Magnesium Oxide 400 Mg Tab) 400 mg PO DAILY [facility] Stop: 05/02/21 08:59 Last Admin: 04/06/21 08:52 Dose: 400 mg Documented by: Meclizine HCl (Meclizine 12.5 Mg Tab) 12.5 mg PO TID PRN PRN Reason: Dizziness Stop: 05/02/21 01:43 Miconazole Nitrate (Miconazole Nitrate Powder 43 Gm) 1 appln EXT BID [facility] Stop: 05/03/21 04:44 Last Admin: 04/06/21 08:53 Dose: 1 appln Documented by: Miscellaneous (Remove Lidoderm Patch) 1 ea N/A DAILY@0900 [facility] Stop: 05/02/21 08:59 Last Admin: 04/06/21 08:53 Dose: 1 ea Documented by: Miscellaneous (Requip Xl - Order Awaiting Action) 1 ea N/A QS [facility] Stop: 05/02/21 07:59 Last Admin: 04/06/21 08:56 Dose: Not Given Documented by: Miscellaneous (Carbohydrates For Hypoglycemia ) 15 - 30 gm PO UD PRN PRN Reason: Hypoglycemia Treatment Stop: 05/02/21 02:44 Miscellaneous Information (Pharmacy Glycemic Mgmt Consult) 1 ea N/A UD PRN PRN Reason: Consult Stop: 05/02/21 03:08 Nitroglycerin (Nitroglycerin Sl 0.4 Mg/Tab Tab) 0.4 mg SL UD PRN PRN Reason: Chest Pain Stop: 05/02/21 01:43 Pantoprazole Sodium (Pantoprazole 40 Mg Tab) 40 mg PO [facility] Stop: 05/02/21 20:59 Last Admin: 04/05/21 21:06 Dose: 40 mg Documented by: Polyethylene Glycol (Polyethylene (Miralax) 17 Gm Pack) 17 gm PO DAILY PRN PRN Reason: Constipation Stop: 05/02/21 01:43 Ropinirole HCl (Ropinirole Hcl 1 Mg Tablet) 1 mg PO [facility] Stop: 05/06/21 20:59 Tramadol HCl (Tramadol Hcl 50 Mg Tablet) 50 mg PO Q8H PRN PRN Reason: Pain Stop: 05/02/21 01:43 Last Admin: 04/06/21 06:24 Dose: 50 mg Documented by: Trazodone HCl (Trazodone Hcl 50 Mg Tab) 50 mg PO [facility] Stop: 05/02/21 20:59 Last Admin: 04/05/21 21:06 Dose: 50 mg Documented by: Vitamin D (Cholecalciferol 1,000 Units 25 Mcg Tab) 1,000 units PO [facility] Stop: 05/02/21 08:59 Last Admin: 04/06/21 08:51 Dose: 1,000 units Documented by: (1) CHF (congestive heart failure) Heart failure chronicity: acute on chronic Heart failure type: unspecified Qualified Code(s): I50.9 - Heart failure, unspecified
[2021-04-06] MEDS: ACETAMINOPHEN 325 MG TAB PO PRN (16:17)
[2021-04-06] MEDS: LIDOCAINE 5% 1 PATCH TD SCH (20:28)
[2021-04-06] MEDS: PANTOprazole 40 MG TAB PO SCH (20:29)
[2021-04-06] MEDS: rOPINIRole HCL 1 MG TABLET PO SCH (20:30)
[2021-04-06] MEDS: traZODone HCL 50 MG TAB PO SCH (20:31)
[2021-04-06] MEDS: INSULIN GLARGINE 100 UNIT/ML VIAL SC SCH (21:11)
[2021-04-07] MEDS: ACETAMINOPHEN 325 MG TAB PO PRN ×3 (02:44→17:04)
[2021-04-07] MEDS: LEVOTHYROXINE SODIUM 50 MCG TABLET PO SCH (05:52)
[2021-04-07] MEDS: LEVOTHYROXINE SODIUM 200 MCG TABLET PO SCH (05:52)
[2021-04-07 05:58] LABS: Basophils # (auto) 0.05 K/uL (0-0.2); Basophils % (auto) 0.7 %; Eosinophils # (auto) 0.46 K/uL (0-0.5); Eosinophils % (auto) 6.9 %; Hematocrit (blood only) 42.6 % (37-47); Hemoglobin 13.4 g/dL (12.0-16.0); Immature Granulocytes # (auto) 0.02 K/uL (0.00-0.02); Immature Granulocytes % (auto) 0.3 %; Lymphocytes % (auto) 34.3 %; Mean Corpuscular Hemoglobin 30.6 pg (25-34); Mean Corpuscular Hgb Conc 31.5 g/dL (32-36); Mean Corpuscular Volume 97.3 fL (80-100); Mean Platelet Volume 9.4 fL (7.4-10.4); Monocytes # (auto) 0.46 K/uL (0.11-0.59); Monocytes % (auto) 6.9 %; Neutrophils # (auto) 3.42 K/uL (1.4-6.5); Neutrophils % (auto) 50.9 %; Platelet Count 255 K/uL (130-400); RDW Coefficient of Variation 15.4 % (11.5-14.5); RDW Standard Deviation 55.1 fL (36.4-46.3); Red Blood Count 4.38 M/uL (4.2-5.4); White Blood Count 6.71 K/uL (4.8-10.8)
[2021-04-07 06:28] LABS: Blood Urea Nitrogen 27 mg/dl (7-18); Calcium 8.8 mg/dl (8.5-10.1); Carbon Dioxide 32 mmol/L (21-32); Chloride 104 mmol/L (98-107); Creatinine Clr Calc Pharmacy 58.9 ml/min; Est GFR (African American) 45.6 ml/min; Est GFR (Non-African American) 39.3 ml/min; Glucose 140 mg/dl (70-99); Magnesium 1.6 mg/dl (1.8-2.4); Potassium 3.4 mmol/L (3.5-5.1); Sodium 138 mmol/L (136-145)
[2021-04-07 06:33] LABS: Troponin I < 0.015 ng/ml (0-0.045)
[2021-04-07] MEDS: INSULIN ASPART 100 UNITS/ML 3 ML PEN SC SCH ×4 (09:03→22:23)
[2021-04-07] MEDS: GABAPENTIN 300 MG CAP PO SCH ×3 (09:08→20:52)
[2021-04-07] MEDS: COLCHICINE 0.6 MG TAB PO SCH (09:08)
[2021-04-07] MEDS: DULoxetine HCL 60 MG CAP PO SCH (09:10)
[2021-04-07] MEDS: DULoxetine HCL 30 MG CAP PO SCH (09:11)
[2021-04-07] MEDS: CHOLECALCIFEROL 1,000 UNITS 25 MCG TAB PO SCH (09:12)
[2021-04-07] MEDS: MICONAZOLE NITRATE POWDER 43 GM EXT SCH ×2 (09:12→22:29)
[2021-04-07] MEDS: FUROSEMIDE 20 MG TAB PO SCH ×2 (09:12→17:05)
[2021-04-07] MEDS: MAGNESIUM OXIDE 400 MG TAB PO SCH (09:12)
[2021-04-07] MEDS: REQUIP XL - ORDER AWAITING ACTION SCH ×3 (10:17→15:44)
[2021-04-07] MEDS ORDERED: POTASSIUM CHLORIDE CRTAB 20 MEQ TABCR PO STA (17:16)
--- NOTE | 2021-04-07 17:16 | Hospitalist Progress Note ---
Date of Service April 07, 2021 Assessment & Plan (1) Fall: As below PT/OT evaluation noted. Rehab recommended. Per case management notes, [facility] will reevaluate tomorrow She did very well with physical therapy and she will not be accepted to [facility] She will need to go to rehab [facility] On approval she can be discharged (2) Orthostasis: Fall at home secondary to orthostatic hypotension Has had recurrent episodes of dizziness. Work-up in the past with CT head and MRI has been unremarkable including echocardiogram. Has been getting PT and OT evaluation and was recommended rehab Strongly advised to take precaution to avoid falls Bilateral carotid stenosis I obtained carotid duplex which revealed greater than 70% stenosis within the mid right ICA and 50 to 59% stenosis within proximal left ICA as well as retrograde flow within the right vertebral artery suggesting possibility of subclavian steal syndrome. CTA did show less than 50% stenosis of the left subclavian artery between first rib and scalene muscle. Appreciate vascular surgery input and recommendation for no further measures for this Hyperlipidemia Discussed statin therapy with patient. She stated she had been intolerant in the past. Confirmed this from cardiology outpatient note from 01/12/2019 She cannot try omega-3 fish well [id number] (3) Diabetes mellitus, type II: Carbohydrate controlled diet. Manage blood glucose with insulin per protocol. (4) CHF (congestive heart failure): History of chronic diastolic heart failure. Currently euvolemic On Lasix Remains free of symptoms (5) Hypothyroidism: Continue levothyroxine (6) RLS (restless legs syndrome): Continue ropinirole (7) CKD (chronic kidney disease), stage III: Creatinine at baseline. Avoid nephrotoxins Monitor-creatinine remains stable Hypokalemia Supplemented (8) History of pulmonary embolism: Status post IVC filter (9) Hypoxia: (10) ELISSA on CPAP: Chronic hypoxia on oxygen. Continue oxygen supplementation Continue CPAP at bedtime (11) DVT prophylaxis: SCD Will be transferred to [facility] on approval Admission and Anticipated Discharge Date Admission Date: April 02, 2021 Subjective 04/06/2021 The patient was seen and examined in medical telemetry unit She remains stable but generally weak and lethargic Denies any other symptoms She was seen by Dr. Tang and there is no significant subclavian stenosis on CTA scan and she was cleared 04/07/2021 The patient was seen and examined in medical telemetry unit She has been feeling much better and did very well with physical therapy that she does not need to go to [facility] She has been referred to [facility] and when approved she will be leaving Denies any significant symptoms Review of Systems Review of Systems: All systems reviewed and are unremarkable as noted below Respiratory: + dyspnea on exertion Physical Exam Physical Exam: Sitting on a chair with minimal shortness of breath at rest Constitutional: well developed, well nourished, + ill appearing and + morbidly obese Eyes: PERRL, conjunctivae normal, anicteric sclerae ENMT: external ear and nose normal, oropharynx normal Neck: trachea midline, no thyromegaly Respiratory: + respiratory distress (Minimal distress at rest) Auscultation: + diminished lung sounds and + crackles; no wheezes Cardiovascular: Rate/Rhythm: regular rate and regular rhythm Heart Sounds: no murmur Extremities: + edema (1+ edema bilaterally) Gastrointestinal (Abdomen): Inspection/Auscultation: + abdomen distended and normal bowel sounds Percussion/Palpation: abdomen soft; abdomen nontender Musculoskeletal: Denies any acute arthritis involving any of the joints. Has minimal pain at the IV site Neurologic: Alert, awake and oriented x3. Generally weak Psychiatric: A+Ox3, euthymic affect Lymphatic: no cervical or axillary lymphadenopathy Results & Data Results & Data ([facility]) Vital Signs (Past 12 Hours) Vital Signs Temp Pulse Pulse Resp BP Pulse Ox 04/07/21 15:34 37.1 C 90 16 106/67 92 04/07/21 14:20 84 04/07/21 11:38 37.0 C 85 20 91/59 L 93 04/07/21 07:33 37.1 C 64 16 166/65 H 96 04/07/21 06:20 86 Laboratory Results Short CBC 04/07/21 Range/Units 05:45 WBC 6.71 (4.8-10.8) K/uL Hgb 13.4 (12.0-16.0) g/dL Hct 42.6 (37-47) % Plt Count 255 (130-400) K/uL BMP 04/07/21 05:45 Sodium 138 Potassium 3.4 L Chloride 104 Carbon Dioxide 32 BUN 27 H Creatinine 1.40 H Glucose 140 H Calcium 8.8 Cardiac Enzymes 04/07/21 Range/Units 05:45 Troponin I < 0.015 (0-0.045) ng/ml Medications Administered Current Inpatient Medications Acetaminophen (Acetaminophen 325 Mg Tab) 650 mg PO Q4H PRN PRN Reason: Pain or Fever Stop: 05/02/21 01:43 Last Admin: 04/07/21 17:04 Dose: 650 mg Documented by: Clonazepam (Clonazepam 0.5 Mg Tab) 0.5 mg PO BID PRN PRN Reason: anxiety Stop: 05/02/21 01:43 Last Admin: 04/04/21 11:32 Dose: 0.5 mg Documented by: Colchicine (Colchicine 0.6 Mg Tab) 0.3 mg PO DAILY ROBERT Stop: 05/02/21 08:59 Last Admin: 04/07/21 09:08 Dose: 0.3 mg Documented by: Cyclobenzaprine HCl (Cyclobenzaprine Hcl 10 Mg Tab) 10 mg PO HS PRN PRN Reason: Muscle Spasm Stop: 05/02/21 02:38 Last Admin: 04/06/21 01:39 Dose: 10 mg Documented by: Dextrose (Dextrose 50% 50 Ml Syringe) 25 - 50 ml IV UD PRN; Protocol PRN Reason: Hypoglycemia Protocol Stop: 05/02/21 02:44 Dicyclomine HCl (Dicyclomine Hcl 20 Mg Tab) 20 mg PO QID PRN PRN Reason: abdominal pain Stop: 05/02/21 01:43 Diphenhydramine HCl (Diphenhydramine Capsule 25 Mg Cap) 25 mg PO BID PRN PRN Reason: Itching Stop: 05/05/21 16:04 Last Admin: 04/05/21 17:12 Dose: 25 mg Documented by: Docusate Sodium (Docusate Sodium 100 Mg Cap) 100 mg PO BID PRN PRN Reason: Constipation Stop: 05/02/21 01:43 Last Admin: 04/04/21 03:19 Dose: 100 mg Documented by: Duloxetine HCl (Duloxetine Hcl 30 Mg Cap) 30 mg PO DAILY ROBERT Stop: 05/02/21 08:59 Last Admin: 04/07/21 09:11 Dose: 30 mg Documented by: Duloxetine HCl (Duloxetine Hcl 60 Mg Cap) 60 mg PO QAM ROBERT Stop: 05/02/21 08:59 Last Admin: 04/07/21 09:10 Dose: 60 mg Documented by: Furosemide (Furosemide 20 Mg Tab) 20 mg PO BID17 [facility] Stop: 05/02/21 08:59 Last Admin: 04/07/21 17:05 Dose: 20 mg Documented by: Gabapentin (Gabapentin 300 Mg Cap) 300 mg PO TID [facility] Stop: 05/02/21 08:59 Last Admin: 04/07/21 13:36 Dose: 300 mg Documented by: Glucagon (Glucagon For Inj 1 Mg Vial) 1 mg IM UD PRN; Protocol PRN Reason: Hypoglycemia Protocol Stop: 05/02/21 02:44 Glucose (Glucose 40% Gel 15 Gm Tube) 15 - 30 gm PO UD PRN; Protocol PRN Reason: Hypoglycemia Protocol Stop: 05/02/21 02:44 Glucose (Glucose 10 Tabs/Tube) 4 - 8 tabs PO UD PRN; Protocol PRN Reason: Hypoglycemia Protocol Stop: 05/02/21 02:44 Insulin Aspart (Insulin Aspart 100 Units/Ml 3 Ml Pen) 0 units SC [facility]; Protocol Stop: 05/02/21 07:29 Last Admin: 04/07/21 17:09 Dose: 7 units Documented by: Insulin Glargine (Insulin Glargine 100 Unit/Ml Vial) 65 units [address] [facility]; Protocol Stop: 05/06/21 20:59 Last Admin: 04/06/21 21:11 Dose: 65 units Documented by: Levothyroxine Sodium (Levothyroxine Sodium 200 Mcg Tablet) [facility] Stop: 05/02/21 06:29 Last Admin: 04/07/21 05:52 Dose: 200 mcg Documented by: Levothyroxine Sodium (Levothyroxine Sodium 50 Mcg Tablet) 50 [facility]cg [facility] Stop: 05/02/21 06:29 Last Admin: 04/07/21 05:52 Dose: 50 mcg Documented by: Lidocaine (Lidocaine 5% 1 Patch) [address] [facility] Stop: 05/02/21 20:59 Last Admin: 04/06/21 20:28 Dose: 1 patch Documented by: Magnesium Oxide (Magnesium Oxide 400 Mg Tab) 400 mg PO DAILY [facility] Stop: 05/02/21 08:59 Last Admin: 04/07/21 09:12 Dose: 400 mg Documented by: Meclizine HCl (Meclizine 12.5 Mg Tab) 12.5 mg PO TID PRN PRN Reason: Dizziness Stop: 05/02/21 01:43 Miconazole Nitrate (Miconazole Nitrate Powder 43 Gm) 1 appln EXT BID [facility] Stop: 05/03/21 04:44 Last Admin: 04/07/21 09:12 Dose: 1 appln Documented by: Miscellaneous (Remove Lidoderm Patch) 1 ea N/A DAILY@0900 [facility] Stop: 05/02/21 08:59 Last Admin: 04/07/21 09:13 Dose: 1 ea Documented by: Miscellaneous (Requip Xl - Order Awaiting Action) 1 ea N/A QS [facility] Stop: 05/02/21 07:59 Last Admin: 04/07/21 15:44 Dose: Not Given Documented by: Miscellaneous (Carbohydrates For Hypoglycemia ) 15 - 30 gm PO UD PRN PRN Reason: Hypoglycemia Treatment Stop: 05/02/21 02:44 Miscellaneous Information (Pharmacy Glycemic Mgmt Consult) 1 ea N/A UD PRN PRN Reason: Consult Stop: 05/02/21 03:08 Nitroglycerin (Nitroglycerin Sl 0.4 Mg/Tab Tab) 0.4 mg SL UD PRN PRN Reason: Chest Pain Stop: 05/02/21 01:43 Pantoprazole Sodium (Pantoprazole 40 Mg Tab) 40 mg [address] [facility] Stop: 05/02/21 20:59 Last Admin: 04/06/21 20:29 Dose: 40 mg Documented by: Polyethylene Glycol (Polyethylene (Miralax) 17 Gm Pack) 17 gm PO DAILY PRN PRN Reason: Constipation Stop: 05/02/21 01:43 Ropinirole HCl (Ropinirole Hcl 1 Mg Tablet) [address] [facility] Stop: 05/06/21 20:59 Last Admin: 04/06/21 20:30 Dose: 1 mg Documented by: Tramadol HCl (Tramadol Hcl 50 Mg Tablet) 50 mg PO Q8H PRN PRN Reason: Pain Stop: 05/02/21 01:43 Last Admin: 04/06/21 22:16 Dose: 50 mg Documented by: Trazodone HCl (Trazodone Hcl 50 Mg Tab) 50 mg PO HS [facility] Stop: 05/02/21 20:59 Last Admin: 04/06/21 20:31 Dose: 50 mg Documented by: Vitamin D (Cholecalciferol 1,000 Units 25 Mcg Tab) 1,000 units PO QAM [facility] Stop: 05/02/21 08:59 Last Admin: 04/07/21 09:12 Dose: 1,000 units Documented by: (1) CHF (congestive heart failure) Heart failure chronicity: acute on chronic Heart failure type: unspecified Qualified Code(s): I50.9 - Heart failure, unspecified
--- NOTE | 2021-04-07 18:25 | Electrocardiogram Report ---
Test Reason : Blood Pressure : / mmHG Vent. Rate : 083 BPM Atrial Rate : 083 BPM P-R Int : 190 ms QRS Dur : 086 ms QT Int : 384 ms P-R-T Axes : 075 026 043 degrees QTc Int : 451 ms Normal sinus rhythm Low voltage QRS Borderline ECG When compared with ECG of 01-APR-2021 20:16, No significant change was found Confirmed by Mina Palmer ([id number]) on 04/07/2021 6:25:30 PM Referred By: REFERRED SELF Confirmed By:Axel Palmer
[2021-04-07] MEDS ORDERED: POTASSIUM CHLORIDE / WTR 10 MEQ/100 ML PLCT IV ONE (19:45)
[2021-04-07] MEDS: PANTOprazole 40 MG TAB PO SCH (20:52)
[2021-04-07] MEDS: traZODone HCL 50 MG TAB PO SCH (20:52)
[2021-04-07] MEDS: LIDOCAINE 5% 1 PATCH TD SCH (20:54)
[2021-04-07] MEDS: INSULIN GLARGINE 100 UNIT/ML VIAL SC SCH (22:23)
[2021-04-07] MEDS: traMADol HCL 50 MG TABLET PO PRN (22:28)
[2021-04-07] MEDS: rOPINIRole HCL 1 MG TABLET PO SCH (22:29)
[2021-04-08] MEDS: ACETAMINOPHEN 325 MG TAB PO PRN (00:56)
[2021-04-08] MEDS ORDERED: oxyCODONE HCL IR 5 MG TAB (IMMEDIATE RELEASE) PO STA (01:01)
[2021-04-08] MEDS: REQUIP XL - ORDER AWAITING ACTION SCH ×4 (01:01→22:04)
[2021-04-08] MEDS ORDERED: SODIUM CHLORIDE 0.9% 1000ML 500 ML IV ONE (04:32)
[2021-04-08] MEDS: LEVOTHYROXINE SODIUM 200 MCG TABLET PO SCH (06:13)
[2021-04-08] MEDS: LEVOTHYROXINE SODIUM 50 MCG TABLET PO SCH (06:13)
[2021-04-08] MEDS: INSULIN ASPART 100 UNITS/ML 3 ML PEN SC SCH ×4 (09:50→21:54)
[2021-04-08] MEDS: CHOLECALCIFEROL 1,000 UNITS 25 MCG TAB PO SCH (09:52)
[2021-04-08] MEDS: COLCHICINE 0.6 MG TAB PO SCH (09:52)
[2021-04-08] MEDS: DULoxetine HCL 60 MG CAP PO SCH (09:53)
[2021-04-08] MEDS: DULoxetine HCL 30 MG CAP PO SCH (09:53)
[2021-04-08] MEDS: GABAPENTIN 300 MG CAP PO SCH ×3 (09:54→21:48)
[2021-04-08] MEDS: FUROSEMIDE 20 MG TAB PO SCH ×2 (09:54→17:34)
[2021-04-08] MEDS: MICONAZOLE NITRATE POWDER 43 GM EXT SCH ×2 (09:54→21:49)
[2021-04-08] MEDS: MAGNESIUM OXIDE 400 MG TAB PO SCH (09:54)
--- NOTE | 2021-04-08 13:03 | Hospitalist Progress Note ---
Date of Service April 08, 2021 Assessment & Plan (1) Fall: (2) Orthostasis: (3) Diabetes mellitus, type II: (4) CHF (congestive heart failure): (5) Hypothyroidism: (6) RLS (restless legs syndrome): (7) CKD (chronic kidney disease), stage III: (8) History of pulmonary embolism: (9) Hypoxia: (10) ELISSA on CPAP: (11) DVT prophylaxis: Plan: (1) Fall: As below PT/OT evaluation noted. Rehab recommended. She did very well with physical therapy and she will not be accepted to [facility] She will need to go to rehab at [facility] On approval she can be discharged (2) Orthostasis: Fall at home secondary to orthostatic hypotension Has had recurrent episodes of dizziness. Work-up in the past with CT head and MRI has been unremarkable including echocardiogram. Has been getting PT and OT evaluation and was recommended rehab Strongly advised to take precaution to avoid falls Bilateral carotid stenosis I obtained carotid duplex which revealed greater than 70% stenosis within the mid right ICA and 50 to 59% stenosis within proximal left ICA as well as retrograde flow within the right vertebral artery suggesting possibility of subclavian steal syndrome. CTA did show less than 50% stenosis of the left subclavian artery between first rib and scalene muscle. Appreciate vascular surgery input and recommendation for no further measures for this Hyperlipidemia Discussed statin therapy with patient. She stated she had been intolerant in the past. Confirmed this from cardiology outpatient note from 01/12/2019 She cannot try omega-3 fish well [id number] (3) Diabetes mellitus, type II: Carbohydrate controlled diet. Manage blood glucose with insulin per protocol. (4) CHF (congestive heart failure): History of chronic diastolic heart failure. Currently euvolemic On Lasix Remains free of symptoms (5) Hypothyroidism: Continue levothyroxine (6) RLS (restless legs syndrome): Continue ropinirole (7) CKD (chronic kidney disease), stage III: Creatinine at baseline. Avoid nephrotoxins Monitor-creatinine remains stable Hypokalemia Supplemented (8) History of pulmonary embolism: Status post IVC filter (9) Hypoxia: (10) ELISSA on CPAP: labs checked ROS-No Headache, No Visual Changes, No Nausea, No Vomiting, No Fever, No Chills, No Neck Pain or Stiffness, No Chest Pain, No Palpitations, No SOB, No AVENDAÑO, No Cough, No Sputum, No Wheezing, No Abdominal Pain, No Diarrhea, No Hematemesis, No Hemoptysis, No Unexpected Weight Loss, No Flank pain, No Melena, No Hematochezia, No Frequency, No Urgency, No Burning, No Hematuria, No Rashes, No Diaphoresis. Appetite is Normal Physical Exam Gen-AAO x 3, NAD, Afebrile, obese Head-NCAT, EOMI, PERRLA, Anicteric Sclera, No Posterior Pharyngeal Erythema Neck-Supple, No JVD, No Thyromegaly, No Masses, No LAD, No Bruits Lungs-Clear to Auscultation Bilaterally, No Rales, No Rhonchi, No Wheezing, No Crepitus Chest-No S4, +S1, +S2, No S3, No Murmurs, No Rubs, No Gallops, No Ectopy Abdomen-Soft, Bowel Sounds Present, Non Tender, Non Distended, No Hepatomegaly, No Splenomegaly, No Palpable Masses, No Rebound, No Rigidity, No Guarding Musculoskeletal-Full Range of Motion Bilaterally, No CVAT Extremities-No Cyanosis, No Clubbing, No Edema Nuero-Cranial Nerves II-XII grossly intact, Motor WNL, DTRs WNL, Strength WNL, Non Focal Psych-Normal Mood Admission and Anticipated Discharge Date Admission Date: April 02, 2021 Results & Data Results & Data ([facility]) Vital Signs (Past 12 Hours) Vital Signs Temp Pulse Pulse Resp BP Pulse Ox 04/08/21 11:01 36.7 C 75 18 109/72 95 04/08/21 07:47 86 04/08/21 07:22 36.8 C 84 20 94/53 L 93 04/08/21 04:49 37 C 89 16 86/51 L 91 (1) CHF (congestive heart failure) Heart failure chronicity: acute on chronic Heart failure type: unspecified Qualified Code(s): I50.9 - Heart failure, unspecified
--- NOTE | 2021-04-08 15:05 | Pharmacy Report ---
Pharmacy Glycemic Short Note 2 - Date of Service April 08, 2021 - Glycemic Short BSG Results (Last 24 hours): 04/07/21 04/07/21 04/08/21 16:44 21:02 07:38 POC Glucose 104 H 164 H 163 H 04/08/21 11:22 POC Glucose 213 H OUTPATIENT ANTIDIABETIC REGIMEN: * Trulicity 3mg SQ weekly * Novolog 40 units TID with meals (up to 200 units/day) * Tresiba 60 units HS (took dose prior to admission last night) ASSESSMENT: 04/08/21: * Stephanie received 120 units of insulin yesterday with decent glycemic control * 65 units of basal * 55 units of bolus * Fasting BSG of 163 mg/dL is above goal. Will increase basal insulin * Post prandial BSGs are fluctuating. Will tighten carb coverage. 04/06/21 * Patient's blood sugars yesterday were [phone] mg/dL. Fasting today was 153 mg/dL. * Patient received 126 units of insulin yesterday with 60 units of basal and 66 units of bolus. * Increase basal by 10% since fasting trending upwards. Believe 70 units though is too aggressive. * Tighten Carbohydrate ratio back to previous number since BSGs continue to trend upwards. 04/05/21 * Patient's blood sugars yesterday were [phone] mg/dL. Fasting today was 111 mg/dL. * Patient received 118 units of insulin yesterday with 70 units of basal and 48 units of bolus. * Reduce basal since fasting BSG trending downwards. * Loosen CR as BSGs trend downwards throughout the day. 04/02/21 * 65 year old female, admitted after fall, A1c 8.4%, on basal bolus insulin at home as listed above * Fasting blood sugar 184mg/dl - will give additional basal dose this morning * Blood sugar sandie to 194mg/dl at lunch, will tighten CR * no additional factors for insulin resistance at this time PLAN FOR INPATIENT GLYCEMIC CONTROL: * Hold outpatient Trulicity * Basal insulin * 70 units HS * Bolus insulin * NovoLog per scale ACHS or Q6hrs while NPO * Goal Range: Low 110 mg/dL - High 140 mg/dL * Correction Factor: 12 mg/dL/unit * TIGHTEN: Nutritional / Prandial insulin per carb ratio of 1 unit per 2 grams CHO consumed DISCHARGE RECOMMENDATIONS * Patient's HbA1C is slightly elevated above goal range (goal would be <8% for patient with current comorbidities). * Regimen inhouse is similar to outpatient regimen. * Recommend continuing Trulicity. * Recommend working with outpatient provider via blood sugar logs to evaluate where blood sugars are elevated throughout the day. Then could adjust insulin appropriately.
[2021-04-08] MEDS ORDERED: INSULIN GLARGINE 100 UNIT/ML VIAL SC SCH (21:00)
[2021-04-08] MEDS: PANTOprazole 40 MG TAB PO SCH (21:48)
[2021-04-08] MEDS: rOPINIRole HCL 1 MG TABLET PO SCH (21:48)
[2021-04-08] MEDS: traZODone HCL 50 MG TAB PO SCH (21:48)
[2021-04-08] MEDS: LIDOCAINE 5% 1 PATCH TD SCH (21:49)
[2021-04-09] MEDS: traMADol HCL 50 MG TABLET PO PRN (01:29)
[2021-04-09] MEDS: LEVOTHYROXINE SODIUM 200 MCG TABLET PO SCH (06:03)
[2021-04-09] MEDS: LEVOTHYROXINE SODIUM 50 MCG TABLET PO SCH (06:03)
[2021-04-09] MEDS: REQUIP XL - ORDER AWAITING ACTION SCH ×2 (08:02→15:05)
[2021-04-09] MEDS: DULoxetine HCL 30 MG CAP PO SCH (08:06)
[2021-04-09] MEDS: MAGNESIUM OXIDE 400 MG TAB PO SCH (08:07)
[2021-04-09] MEDS: FUROSEMIDE 20 MG TAB PO SCH (08:07)
[2021-04-09] MEDS: COLCHICINE 0.6 MG TAB PO SCH (08:07)
[2021-04-09] MEDS: CHOLECALCIFEROL 1,000 UNITS 25 MCG TAB PO SCH (08:07)
[2021-04-09] MEDS: DULoxetine HCL 60 MG CAP PO SCH (08:07)
[2021-04-09] MEDS: GABAPENTIN 300 MG CAP PO SCH ×2 (08:07→14:11)
[2021-04-09] MEDS: MICONAZOLE NITRATE POWDER 43 GM EXT SCH (08:08)
--- NOTE | 2021-04-09 08:15 | Hospitalist Progress Note ---
Date of Service April 09, 2021 Assessment & Plan (1) Fall: (2) Orthostasis: (3) Diabetes mellitus, type II: (4) CHF (congestive heart failure): (5) Hypothyroidism: (6) RLS (restless legs syndrome): (7) CKD (chronic kidney disease), stage III: (8) History of pulmonary embolism: (9) Hypoxia: (10) ELISSA on CPAP: (11) DVT prophylaxis: Plan: (1) Fall: As below PT/OT evaluation noted. Rehab recommended. She did very well with physical therapy and [facility] She will need to go to rehab at [facility] next choice On approval she can be discharged (2) Orthostasis: Fall at home secondary to orthostatic hypotension Has had recurrent episodes of dizziness. Work-up in the past with CT head and MRI has been unremarkable including echocardiogram. Has been getting PT and OT evaluation and was recommended rehab Strongly advised to take precaution to avoid falls Bilateral carotid stenosis I obtained carotid duplex which revealed greater than 70% stenosis within the mid right ICA and 50 to 59% stenosis within proximal left ICA as well as retrograde flow within the right vertebral artery suggesting possibility of subclavian steal syndrome. CTA did show less than 50% stenosis of the left subclavian artery between first rib and scalene muscle. Appreciate vascular surgery input and recommendation for no further measures for this Hyperlipidemia Discussed statin therapy with patient. She stated she had been intolerant in the past. Confirmed this from cardiology outpatient note from 01/12/2019 She cannot try omega-3 fish well [id number] (3) Diabetes mellitus, type II: Carbohydrate controlled diet. Manage blood glucose with insulin per protocol. (4) CHF (congestive heart failure): History of chronic diastolic heart failure. Currently euvolemic On Lasix Remains free of symptoms (5) Hypothyroidism: Continue levothyroxine (6) RLS (restless legs syndrome): Continue ropinirole (7) CKD (chronic kidney disease), stage III: Creatinine at baseline. Avoid nephrotoxins Monitor-creatinine remains stable Hypokalemia Supplemented (8) History of pulmonary embolism: Status post IVC filter (9) Hypoxia: (10) ELISSA on CPAP: labs checked ROS-No Headache, No Visual Changes, No Nausea, No Vomiting, No Fever, No Chills, No Neck Pain or Stiffness, No Chest Pain, No Palpitations, No SOB, No AVENDAÑO, No Cough, No Sputum, No Wheezing, No Abdominal Pain, No Diarrhea, No Hematemesis, No Hemoptysis, No Unexpected Weight Loss, No Flank pain, No Melena, No Hematochezia, No Frequency, No Urgency, No Burning, No Hematuria, No Rashes, No Diaphoresis. Appetite is Normal Physical Exam Gen-AAO x 3, NAD, Afebrile, obese Head-NCAT, EOMI, PERRLA, Anicteric Sclera, No Posterior Pharyngeal Erythema Neck-Supple, No JVD, No Thyromegaly, No Masses, No LAD, No Bruits Lungs-Clear to Auscultation Bilaterally, No Rales, No Rhonchi, No Wheezing, No Crepitus Chest-No S4, +S1, +S2, No S3, No Murmurs, No Rubs, No Gallops, No Ectopy Abdomen-Soft, Bowel Sounds Present, Non Tender, Non Distended, No Hepatomegaly, No Splenomegaly, No Palpable Masses, No Rebound, No Rigidity, No Guarding Musculoskeletal-Full Range of Motion Bilaterally, No CVAT Extremities-No Cyanosis, No Clubbing, No Edema Nuero-Cranial Nerves II-XII grossly intact, Motor WNL, DTRs WNL, Strength WNL, Non Focal Psych-Normal Mood Admission and Anticipated Discharge Date Admission Date: April 02, 2021 Subjective 04/06/2021 The patient was seen and examined in medical telemetry unit She remains stable but generally weak and lethargic Denies any other symptoms She was seen by Dr. Tang and there is no significant subclavian stenosis on CTA scan and she was cleared 04/07/2021 The patient was seen and examined in medical telemetry unit She has been feeling much better and did very well with physical therapy that she does not need to go to [facility] She has been referred to [facility] and when approved she will be leaving Denies any significant symptoms 04/08& Seen-Awaiting placement Results & Data Results & Data ([facility]) Vital Signs (Past 12 Hours) Vital Signs Temp Pulse Pulse Resp BP BP Pulse Ox 04/09/21 07:51 92 H 04/09/21 07:48 36.8 C 90 20 106/71 94 04/09/21 04:33 36.9 C 95 H 20 105/47 L 92 04/09/21 02:42 96 H 04/09/21 00:17 36.6 C 102 H 20 91/73 L 98 (1) CHF (congestive heart failure) Heart failure chronicity: acute on chronic Heart failure type: unspecified Qualified Code(s): I50.9 - Heart failure, unspecified
[2021-04-09] MEDS: INSULIN ASPART 100 UNITS/ML 3 ML PEN SC SCH ×2 (08:52→12:16)
--- NOTE | 2021-04-09 09:32 | Discharge Summary ---
Date of Service April 09, 2021 Admission HPI Per Admitting Provider 65-year-old female with past medical history significant for type 2 diabetes; hyperlipidemia; postsurgical hypothyroidism; hyperparathyroidism secondary to renal disease; obstructive sleep apnea, on CPAP at bedtime; history of PE, DVT, status post IVC filter, secondary to heparin-induced thrombocytopenia; chronic respiratory failure on home oxygen; history of tobacco abuse; fibromyalgia; restless legs syndrome; hypertension; chronic kidney disease stage III; chronic diastolic CHF; history of vasculitis; morbid obesity; GERD; osteoarthritis; lumbar radiculopathy; mild episode of depression, generalized anxiety disorder; statin intolerance; abnormality of gait. The patient lives at home alone, ambulates with a cane and walker. Brother lives close by. Eats regular food. She was recently in the hospital for dizziness. Workup with a CT head and MRI head was unremarkable, thought to be from polypharmacy and she was also hypotensive, was started on midodrine, but midodrine was stopped because of elevated blood pressure. She was also recently treated for UTI. Currently comes because of fall at home. The patient says her friend came visiting her. She was ambulating with a walker and she went to get a glass of water, when her legs felt weak and she started giving away and she could not hold on the walker and she fell on her back and then hit her head. She could not get up and ambulance was called in and was brought in here. Her imaging studies of CT of the head on preliminary report was no acute findings. The patient was hypotensive in the ER even after a fluid bolus and a dose of midodrine. Blood pressure was still in the 80s and low 90s and she was again having ambulatory dysfunction, so we were called for admission. Currently, denies any headache, no blurred visions, no earache, no runny nose, no sore throat, no cough, no fever, no chills. Says appetite is okay. No difficulty swallowing. No chest pain, no shortness of breath, no nausea, no vomiting, no abdominal pain. Some what constipated. Normal bladder movements. She says her blood pressure always runs low. Admission Exam Per Admitting Provider PHYSICAL EXAMINATION: GENERAL: The patient is morbidly obese, not in acute distress. VITAL SIGNS: Temperature 37, pulse 83, respiratory rate 16, blood pressure 93/58, oxygen 95% on 2 liters. HEENT: Pupils equal, round, and reactive to light. Oral mucosa moist. NECK: No JVD, no neck masses. CARDIOVASCULAR: S1 and S2 heard. Regular rate and rhythm. No murmur, no gallop. RESPIRATORY SYSTEM: Normal AP diameter. No accessory muscle. No wheezing, no crackles. ABDOMEN: Soft, bowel sounds present, nontender, no distention. CENTRAL NERVOUS SYSTEM: Cranial nerves II-XII grossly intact, nonfocal. EXTREMITIES: No edema, no erythema. Principal Diagnosis (1) Fall: (2) Orthostasis: (3) Diabetes mellitus, type II: (4) CHF (congestive heart failure): (5) Hypothyroidism: (6) RLS (restless legs syndrome): (7) CKD (chronic kidney disease), stage III: (8) History of pulmonary embolism: (9) Hypoxia: (10) ELISSA on CPAP: (11) DVT prophylaxis: Discharge Exam ROS-No Headache, No Visual Changes, No Nausea, No Vomiting, No Fever, No Chills, No Neck Pain or Stiffness, No Chest Pain, No Palpitations, No SOB, No [place]O, No Cough, No Sputum, No Wheezing, No Abdominal Pain, No Diarrhea, No Hematemesis, No Hemoptysis, No Unexpected Weight Loss, No Flank pain, No Melena, No Hematochezia, No Frequency, No Urgency, No Burning, No Hematuria, No Rashes, No Diaphoresis. Appetite is Normal Physical Exam Gen-AAO x 3, NAD, Afebrile, obese Head-NCAT, EOMI, PERRLA, Anicteric Sclera, No Posterior Pharyngeal Erythema Neck-Supple, No JVD, No Thyromegaly, No Masses, No LAD, No Bruits Lungs-Clear to Auscultation Bilaterally, No Rales, No Rhonchi, No Wheezing, No Crepitus Chest-No S4, +S1, +S2, No S3, No Murmurs, No Rubs, No Gallops, No Ectopy Abdomen-Soft, Bowel Sounds Present, Non Tender, Non Distended, No Hepatomegaly, No Splenomegaly, No Palpable Masses, No Rebound, No Rigidity, No Guarding Musculoskeletal-Full Range of Motion Bilaterally, No CVAT Extremities-No Cyanosis, No Clubbing, No Edema Nuero-Cranial Nerves II-XII grossly intact, Motor WNL, DTRs WNL, Strength WNL, Non Focal Psych-Normal Mood Discharge Data Allergies Allergy/AdvReac Type Severity Reaction Status Date / Time morphine Allergy Severe VIOLENT Verified 04/01/21 20:05 REACTION-"ALMOST " SWELLING tetanus toxoid, adsorbed Allergy Intermediate PASSED OUT Verified 04/01/21 20:05 AND GOT SICK WHEN A CHILD acetaminophen [From Vicodin] AdvReac Intermediate sleepiness Verified 04/01/21 20:05 codeine AdvReac Intermediate Hallucinati Verified 04/01/21 20:05 ons empagliflozin AdvReac Intermediate YEAST Verified 04/01/21 20:05 [From Jardiance] INFECTIONS heparin AdvReac Intermediate HIT; FLUID Verified 04/01/21 20:05 IN LUNGS hydrocodone [From Vicodin] AdvReac Intermediate sleepiness Verified 04/01/21 20:05 bupropion [From Wellbutrin] AdvReac Recurrent Verified 04/01/21 20:05 falls as per patient Consultations 04/03/21 10:28 Consult Vascular Surgery Routine Ordered Studies 04/01/21 20:32 CT head/brain wo con Urgent CT pelvis wo con Urgent 04/02/21 13:00 US carotid doppler BI Urgent 04/04/21 08:00 CT angio chest wo/w con Routine Current Diagnoses Hypothyroidism, unspecified (04/02/21) Type 2 diabetes mellitus without complications (04/02/21) Restless legs syndrome (04/02/21) Obstructive sleep apnea (adult) (pediatric) (04/02/21) Heart failure, unspecified (04/02/21) Occlusion and stenosis of right carotid artery (04/02/21) Stricture of artery (04/02/21) Orthostatic hypotension (04/02/21) Chronic kidney disease, stage 3 (moderate) (04/02/21) Hypoxemia (04/02/21) Unspecified fall, initial encounter (04/02/21) Encounter for prophylactic measures, unspecified (04/02/21) Personal history of pulmonary embolism (04/02/21) Dependence on other enabling machines and devices (04/02/21) Allergies morphine Allergy (Severe, Verified 04/01/21 20:05) VIOLENT REACTION-"ALMOST " SWELLING tetanus toxoid, adsorbed Allergy (Intermediate, Verified 04/01/21 20:05) PASSED OUT AND GOT SICK WHEN A CHILD acetaminophen [From Vicodin] Adverse Reaction (Intermediate, Verified 04/01/21 20:05) sleepiness codeine Adverse Reaction (Intermediate, Verified 04/01/21 20:05) Hallucinations empagliflozin [From Jardiance] Adverse Reaction (Intermediate, Verified 04/01/21 20:05) YEAST INFECTIONS heparin Adverse Reaction (Intermediate, Verified 04/01/21 20:05) HIT; FLUID IN LUNGS hydrocodone [From Vicodin] Adverse Reaction (Intermediate, Verified 04/01/21 20:05) sleepiness bupropion [From Wellbutrin] Adverse Reaction (Verified 04/01/21 20:05) Recurrent falls as per patient Height/Weight/Isolation Height 5 ft 5 in Weight 47.5 kg Hospital Course (1) Fall: PT/OT evaluation noted. Rehab recommended. Per case management notes, [facility] will reevaluate tomorrow She did very well with physical therapy and she will not be accepted to [facility] She was also denied at [facility] today c HHC/HPT/HOT (2) Orthostasis: Fall at home secondary to orthostatic hypotension Has had recurrent episodes of dizziness. Work-up in the past with CT head and MRI has been unremarkable including echo cardiogram. Strongly advised to take precaution to avoid falls Bilateral carotid stenosis Carotid duplex revealed greater than 70% stenosis within the mid right ICA and 50 to 59% stenosis within proximal left ICA as well as retrograde flow within the right vertebral artery suggesting possibility of subclavian steal syndrome. CTA did show less than 50% stenosis of the left subclavian artery between first rib and scalene muscle. Appreciate vascular surgery input and recommendation for no further workup Hyperlipidemia Discussed statin therapy with patient. She stated she had been intolerant in the past. Confirmed this from cardiology outpatient note from 01/12/2019 (3) Diabetes mellitus, type II: Carbohydrate controlled diet. Manage blood glucose with insulin per protocol. (4) CHF (congestive heart failure): History of chronic diastolic heart failure. Currently euvolemic On Lasix Remains free of symptoms (5) Hypothyroidism: Continue levothyroxine (6) RLS (restless legs syndrome): Continue ropinirole (7) CKD (chronic kidney disease), stage III: Creatinine at baseline. Avoid nephrotoxins Monitor-creatinine remains stable Hypokalemia Supplemented (8) History of pulmonary embolism: Status post IVC filter (9) Hypoxia: (10) ELISSA on CPAP: Chronic hypoxia on oxygen. Continue oxygen supplementation Continue CPAP at bedtime (11) DVT prophylaxis: SCD DC Home c C care today/HPT/HOT Total Time Total Time Spent Total Time Spent (In Minutes): 45 mins Total Time Includes: Examination of the Patient, Discharge Planning, Medication Reconciliation, Communication With Other Providers and Other Discharge Plan Discharge Items Patient Disposition: Home - Home Health Services Reason For Visit: FALL Discharge Diagnosis: (1) Fall: (2) Orthostasis: (3) Diabetes mellitus, type II: (4) CHF (congestive heart failure): (5) Hypothyroidism: (6) RLS (restless legs syndrome): (7) CKD (chronic kidney disease), stage III: (8) History of pulmonary embolism: (9) Hypoxia: (10) ELISSA on CPAP: (11) DVT prophylaxis: Condition on Discharge: Good Health Concerns: Falls Activity: Resume your previous activity Lifting: Gradually increase as tolerated Bathing: No limitations Sexual Activity: When tolerated Exercise/Sports: Gradually increase as tolerated Driving/Machine Use: No limitations Weightbearing: Full weightbearing Non-emergency contact: Primary Care Provider Call non-emergency contact if: you have any medication questions Follow-up/Referrals: Kevin Whiteside DO [Primary Care Provider] - (Date & Time 04/14/2021 11:00 AM Provider Kevin Whiteside DO Department [facility] ) Diet: Carb Consistent or DM2 and Heart Healthy Addtl Attending Provider Instructions: Exercise careful fall precautions Pending Studies at Discharge: No Stand-Alone Forms: My Sliced Apples, Smoking Cessation Medications and DC Order Prescriptions: Continued levothyroxine 200 mcg Tablet 200 mcg PO QAM RF: 0 omeprazole 20 mg Capsule,Delayed Release(Dr/Ec) 20 mg PO HS RF: 0 gabapentin 300 mg Capsule 300 mg PO TID RF: 0 furosemide [Lasix] 40 mg tablet 20 mg PO BID RF: 0 trazodone 50 mg tablet 50 mg PO HS RF: 0 magnesium oxide 400 mg (241.3 mg magnesium) Tablet 400 mg PO DAILY RF: 0 insulin aspart U-100 [Novolog U-100 Insulin aspart] 100 unit/mL solution 0 unit subcut ACHS RF: 0 colchicine 0.6 mg Tablet 0.3 mg PO DAILY RF: 0 duloxetine 30 mg Capsule,Delayed Release(Dr/Ec) 30 mg PO DAILY RF: 0 Tresiba FlexTouch U-100 100 unit/mL (3 mL) Insulin Pen 60 unit SUBCUT HS RF: 0 ropinirole [Requip XL] 2 mg Tablet Extended Release 24 Hr 1 mg PO HS Qty: 0 RF: 0 lidocaine 5 % Adhesive Patch,Medicated 1 patch transdermal HS Qty: 15 RF: 0 cyclobenzaprine 10 mg Tablet 10 mg PO HS PRN (Reason: Muscle Spasm) RF: 0 duloxetine 60 mg capsule,delayed release(DR/EC) 60 mg PO QAM RF: 0 potassium chloride 10 mEq tablet,ER particles/crystals 10 meq PO Q OTHER DAY RF: 0 tramadol 50 mg tablet 50 mg PO Q8H PRN (Reason: Pain) RF: 0 cholecalciferol (vitamin D3) 25 mcg (1,000 unit) Capsule 1,000 unit PO QAM Qty: 30 RF: 1 insulin aspart U-100 [Novolog Flexpen U-100 Insulin] 100 unit/mL (3 mL) ins ulin pen 40 unit SUBCUT WM RF: 0 Trulicity 3 mg/0.5 mL pen injector 3 mg SUBCUT WK RF: 0 dicyclomine 20 mg tablet 20 mg PO QID PRN (Reason: abdominal pain) RF: 0 nortriptyline [Pamelor] 50 mg capsule 50 mg PO HS RF: 0 levothyroxine 50 mcg tablet 50 mcg PO QAM RF: 0 docusate sodium [Colace] 100 mg capsule 100 mg PO BID PRN (Reason: Constipation) RF: 0 meclizine 12.5 mg tablet 12.5 mg PO TID PRN (Reason: Dizziness) RF: 0 clonazepam 0.5 mg Tablet 0.5 mg PO BID PRN (Reason: anxiety) Qty: 0 RF: 0 Discharge Orders: Discharge Order (Routine); Ordered 04/09/21 Ordered By: Uriel Loya/Other Patient Handouts: A1C, Managing Type 2 Diabetes Admission Data Admit Date/Time: 04/02/21 00:26 Attending Provider: Uriel Ugarte Admit Provider: Abhilash Montes Primary Care Provider: Kevin Whiteside Other Providers: Mirza Tang ; [facility] ; Kenya Pandey I. ; [place],[facility], [place]
== END 2021-04-09 16:45 | disposition home health service (06) | DRG 312 ==
LOC: EDSEX → ED 19:47 → 2N 04-02 00:26 → SUATTDRO 04-02 00:26 → 2N 04-02 01:02

== ENCOUNTER 2021-09-20 05:40 | Inpatient (IN) ==
[2021-09-20 06:15] LABS: Basophils # (auto) 0.08 K/uL (0-0.2); Basophils % (auto) 0.7 %; Eosinophils # (auto) 0.19 K/uL (0-0.5); Eosinophils % (auto) 1.7 %; Hematocrit (blood only) 41.5 % (37-47); Hemoglobin 13.1 g/dL (12.0-16.0); Immature Granulocytes # (auto) 0.52 K/uL (0.00-0.02); Immature Granulocytes % (auto) 4.8 %; Lymphocytes # (auto) 2.51 K/uL (1.2-3.4); Mean Corpuscular Hemoglobin 31.5 pg (25-34); Mean Corpuscular Hgb Conc 31.6 g/dL (32-36); Mean Corpuscular Volume 99.8 fL (80-100); Mean Platelet Volume 9.9 fL (7.4-10.4); Monocytes # (auto) 0.77 K/uL (0.11-0.59); Neutrophils # (auto) 6.86 K/uL (1.4-6.5); Neutrophils % (auto) 62.8 %; Platelet Count 415 K/uL (130-400); RDW Coefficient of Variation 16.1 % (11.5-14.5); Red Blood Count 4.16 M/uL (4.2-5.4); White Blood Count 10.93 K/uL (4.8-10.8)
[2021-09-20 06:34] LABS: Albumin Level 2.8 gm/dl (3.4-5.0); BUN Creatinine Ratio 11.6 (10-20); Bilirubin Direct 0.3 mg/dl (0-0.2); Calcium 8.8 mg/dl (8.5-10.1); Creatinine Clr Calc Pharmacy 32.4 ml/min; Est GFR (African American) 21.2 ml/min; Est GFR (Non-African American) 18.3 ml/min
[2021-09-20] MEDS ORDERED: ACETAMINOPHEN 500 MG TAB PO STA (06:48)
[2021-09-20] MEDS ORDERED: SODIUM CHLORIDE 0.9% 1000ML 1,000 ML IV ONE (06:48)
[2021-09-20] MEDS ORDERED: CEFEPIME 2,000 MG/20 ML VIAL IV STA (06:48)
[2021-09-20] MEDS ORDERED: ONDANSETRON INJ 2 MG/ML 2 ML VIAL IV STA (06:58)
--- NOTE | 2021-09-20 07:08 | Emergency Department Note ---
History of Present Illness General Chief complaint: Illness Stated complaint: ILLNESS x3D NOW DIZZY & SOB Time Seen by Provider: 09/20/21 06:31 History of Present Illness 66-year-old female presents to the ED with a chief complaint of a cough productive of green sputum, dizziness and a little nausea. The patient has a fever today. She denies any shortness of breath or chest pains. Her symptoms are worse when getting up and moving around. She does report chronic pedal edema it is not worse than baseline. She denies any abdominal pains. No vomiting or diarrhea. She does use home oxygen at 2 L. She also uses CPAP. Home Medications Medication Instructions Recorded Confirmed Type levothyroxine 200 mcg tablet 200 mcg PO QAM 06/09/18 09/20/21 History omeprazole 20 mg capsule,delayed 20 mg PO HS 06/09/18 09/20/21 History release cyclobenzaprine 10 mg tablet 10 mg PO HS PRN 12/08/18 09/20/21 History duloxetine 60 mg capsule,delayed 60 mg PO QAM 12/23/18 09/20/21 History release gabapentin 300 mg capsule 300 mg PO TID 05/09/19 09/20/21 History colchicine 0.6 mg tablet 0.3 mg PO DAILY 01/25/20 09/20/21 History duloxetine 30 mg capsule,delayed 30 mg PO DAILY 01/25/20 09/20/21 History release furosemide 40 mg tablet (Lasix) 20 mg PO BID 01/25/20 09/20/21 History insulin aspart U-100 100 unit/mL 0 unit SUBCUT ACHS 01/25/20 09/20/21 History subcutaneous solution (Novolog U-100 Insulin aspart) magnesium oxide 400 mg (241.3 mg 400 mg PO DAILY 01/25/20 09/20/21 History magnesium) tablet trazodone 50 mg tablet 50 mg PO HS 01/25/20 09/20/21 History potassium chloride 10 mEq 10 meq PO Q OTHER DAY 03/10/20 09/20/21 History tablet,extended release(part/cryst) tramadol 50 mg tablet 50 mg PO Q8H PRN 07/19/20 09/20/21 History cholecalciferol (vitamin D3) 25 1,000 unit PO QAM #30 cap 07/22/20 09/20/21 Rx mcg (1,000 unit) capsule insulin degludec 100 unit/mL (3 60 unit SUBCUT HS 11/24/20 09/20/21 History mL) subcutaneous pen (Tresiba FlexTouch U-100 insulin) lidocaine 5 % topical patch 1 patch TRANSDERMAL HS #15 ea 11/26/20 09/20/21 Rx dicyclomine 20 mg tablet 20 mg PO QID PRN 03/27/21 09/20/21 History docusate sodium 100 mg capsule 100 mg PO BID PRN 03/27/21 09/20/21 History (Colace) dulaglutide 3 mg/0.5 mL 3 mg SUBCUT WK 03/27/21 09/20/21 History subcutaneous pen injector (Trulicity) insulin aspart U-100 100 unit/mL 40 unit SUBCUT WM 03/27/21 09/20/21 History (3 mL) subcutaneous pen (Novolog Flexpen U-100 Insulin aspart) levothyroxine 50 mcg tablet 50 mcg PO QAM 03/27/21 09/20/21 History meclizine 12.5 mg tablet 12.5 mg PO TID PRN 03/27/21 09/20/21 History nortriptyline 50 mg capsule 50 mg PO HS 03/27/21 09/20/21 History (Pamelor) clonazepam 0.5 mg tablet 0.5 mg PO BID PRN #0 tab 03/28/21 09/20/21 Rx ropinirole 2 mg tablet 2 mg PO HS 09/20/21 09/20/21 History Allergies Allergy/AdvReac Type Severity Reaction Status Date / Time morphine Allergy Severe VIOLENT Verified 09/20/21 07:34 REACTION-"ALMOST " SWELLING tetanus toxoid, adsorbed Allergy Intermediate PASSED OUT Verified 09/20/21 07:34 AND GOT SICK WHEN A CHILD acetaminophen [From Vicodin] AdvReac Intermediate sleepiness Verified 09/20/21 07:34 codeine AdvReac Intermediate Hallucinati Verified 09/20/21 07:34 ons empagliflozin AdvReac Intermediate YEAST Verified 09/20/21 07:34 [From Jardiance] INFECTIONS heparin AdvReac Intermediate HIT; FLUID Verified 09/20/21 07:34 IN LUNGS hydrocodone [From Vicodin] AdvReac Intermediate sleepiness Verified 09/20/21 07:34 bupropion [From Wellbutrin] AdvReac Recurrent Verified 09/20/21 07:34 falls as per patient Past Med/Surg History Medical History Carotid stenosis, right CKD (chronic kidney disease), stage III Depression with anxiety Diabetes Diabetes mellitus, type II Fibromyalgia GERD (gastroesophageal reflux disease) History of DVT (deep vein thrombosis) History of pulmonary embolism s/p zoraida filter HIT (heparin-induced thrombocytopenia) HLD (hyperlipidemia) HTN (hypertension) Hypothyroidism Morbid obesity ELISSA on CPAP Presence of IVC filter RLS (restless legs syndrome) Sepsis Subclavian artery stenosis Surgical History History of cholecystectomy History of colon resection secondary to R colon perforation, resected treated with colostomy and eventual reversal in 2008, Dr. Lerma History of thyroidectomy, total History of total right knee replacement History of tracheostomy 2010, secondary to acute resp failure secondary to pneumonia, transferred to [facility] [place] Family History Father , age 74 Lung cancer Mother , age 45 Cirrhosis Social History Smoking Status: Never smoker Cigarettes Per Day: 15 pack year hx; Second Hand Exposure: No; Hx Alcohol Use: No Hx Substance Use: No Preferred Language: Bangladeshi Communication Ability: Effective Entertainment Usher Required: No Beliefs That Will Affect Care: None marital status: Single Current Living Situation: Alone How many Children do You have: 0 Feels Safe at Home: Yes Assistive Devices: Cane and Walker Review of Systems A total of 10 systems reviewed and were otherwise negative Physical Exam Vital Signs Vital Signs - 24 hr 09/20/21 05:57 09/20/21 06:11 09/20/21 06:58 Temperature 38.4 C H 38.4 C H Temperature Source Oral Oral Pulse Rate 118 H Pulse Rate [Finger] 118 H Blood Pressure 100/74 Blood Pressure [Right Arm] 100/74 Blood Pressure Mean 82 Blood Pressure Mean [Right Arm] 82 Blood Pressure Position Sitting Blood Pressure Position [Right Arm] Sitting Pulse Oximetry 66 L 96 91 Oxygen Delivery Method Room Air Nasal Cannula Nasal Cannula Oxygen Flow Rate 6 4 Sepsis Recent Fever Within 48 Hours Yes Sepsis New/Unexplained Change in Mental Status No Sepsis Action Taken by Nursing No Action Required CONSTITUTIONAL/VITAL SIGNS: Reviewed / noted above. GENERAL: Non-toxic in appearance. INTEGUMENTARY: Warm, dry, and [place]. HEAD: Normocephalic. EYES: without scleral icterus or trauma. ENT/OROPHARYNX: clear and moist. LYMPHADENOPATHY/NECK: Is supple without lymphadenopathy or meningismus. RESPIRATORY: Clear to auscultation bilaterally but diminished No increased work of breathing. CARDIOVASCULAR: Regular rate and rhythm. GI/ABDOMEN: Soft and nontender. No organomegaly or pulsatile mass. EXTREMITIES: Warm and well perfused. Chronic appearing pedal edema. BACK: No CVA tenderness. NEUROLOGICAL: Intact without focal deficits. PSYCHIATRIC: normal affect. MUSCULOSKELETAL: Normally developed with good muscle tone. TRIAGE NURSING DOCUMENTATION REVIEWED. Course Administered Medications Discontinued Medications Acetaminophen (Acetaminophen 500 Mg Tab) 500 mg PO NOW STA Stop: 09/20/21 06:49 Last Admin: 09/20/21 07:17 Dose: 500 mg Documented by: [id number] Sodium Chloride (Nss 1000ml) 1,000 mls @ 999 mls/hr IV .Q1H1M ONE Stop: 09/20/21 07:48 Last Admin: 09/20/21 07:17 Dose: 999 mls/hr Documented by: [id number] Cefepime HCl (Maxipime) 2,000 mg in 20 mls @ 5 mls/min IV NOW STA; Protocol Stop: 09/20/21 06:51 Last Admin: 09/20/21 07:17 Dose: 5 mls/min Documented by: [id number] Medical Decision Making Differential Diagnosis Differential includes acute coronary syndrome, myocardial infarction, CVA, TIA, anemia, infection, pneumonia, UTI, pyelonephritis, poor nutrition, dehydration, electrolyte disturbance,hypoglycemia. Medical Records Attestation: I reviewed the patient's medical records. Home Medications Current Medication List: was personally reviewed by me Laboratory Data Attestation: I reviewed the patient's lab results. Result diagrams: 09/20/21 05:59 09/20/21 05:59 Lab Results 09/20/21 09/20/21 09/20/21 Range/Units 05:59 05:59 05:59 WBC 10.93 H (4.8-10.8) K/uL RBC 4.16 L (4.2-5.4) M/uL Hgb 13.1 (12.0-16.0) g/dL Hct 41.5 (37-47) % MCV 99.8 (80-100) fL MCH 31.5 (25-34) pg MCHC 31.6 L (32-36) g/dL RDW Std Deviation 58.0 H (36.4-46.3) fL RDW Coeff of Adolfo 16.1 H (11.5-14.5) % Plt Count 415 H (130-400) K/uL MPV 9.9 (7.4-10.4) fL Immature Gran % (Auto) 4.8 % Neut % (Auto) 62.8 % Lymph % (Auto) 23.0 % [place] % (Auto) 7.0 % Eos % (Auto) 1.7 % Baso % (Auto) 0.7 % Neut # (Auto) 6.86 H (1.4-6.5) K/uL Lymph # (Auto) 2.51 (1.2-3.4) K/uL [place] # (Auto) 0.77 H (0.11-0.59) K/uL Eos # (Auto) 0.19 (0-0.5) K/uL Baso # (Auto) 0.08 (0-0.2) K/uL Immature Gran # (Auto) 0.52 H (0.00-0.02) K/uL Absolute Nucleated RBC 0.10 H (0-0) K/uL Nucleated RBC % (auto) 1.0 % Sodium 134 L (136-145) mmol/L Potassium 4.0 (3.5-5.1) mmol/L Chloride 99 (98-107) mmol/L Carbon Dioxide 26 (21-32) mmol/L Anion Gap 9.0 (3-11) BUN 30 H (7-18) mg/dl Creatinine 2.62 H (0.6-1.2) mg/dl Est Cr Clr Drug Dosing 32.4 ml/min Est GFR ( Amer) 21.2 ml/min Est GFR (Non-Af Amer) 18.3 ml/min BUN/Creatinine Ratio 11.6 (10-20) Glucose 216 H (70-99) mg/dl Lactate (0.4-2.0) mmol/L Calcium 8.8 (8.5-10.1) mg/dl Total Bilirubin 0.7 (0.2-1) mg/dl Direct Bilirubin 0.3 H (0-0.2) mg/dl AST 63 H (15-37) U/L ALT 54 (12-78) Alkaline Phosphatase 111 (45-117) U/L Troponin I 0.224 H* (0-0.045) ng/ml Total Protein 7.2 (6.4-8.2) gm/dl Albumin 2.8 L (3.4-5.0) gm/dl Procalcitonin 0.22 (0-0.5) ng/ml SARS-CoV-2 (PCR) (Negative) Influenza Type A (PCR) (Neg) Influenza Type B (PCR) (Neg) RSV (RT-PCR) (Neg) 09/20/21 09/20/21 Range/Units 06:14 07:18 WBC (4.8-10.8) K/uL RBC (4.2-5.4) M/uL Hgb (12.0-16.0) g/dL Hct (37-47) % MCV (80-100) fL MCH (25-34) pg MCHC (32-36) g/dL RDW Std Deviation (36.4-46.3) fL RDW Coeff of Adolfo (11.5-14.5) % Plt Count (130-400) K/uL MPV (7.4-10.4) fL Immature Gran % (Auto) % Neut % (Auto) % Lymph % (Auto) % [place] % (Auto) % Eos % (Auto) % Baso % (Auto) % Neut # (Auto) (1.4-6.5) K/uL Lymph # (Auto) (1.2-3.4) K/uL [place] # (Auto) (0.11-0.59) K/uL Eos # (Auto) (0-0.5) K/uL Baso # (Auto) (0-0.2) K/uL Immature Gran # (Auto) (0.00-0.02) K/uL Absolute Nucleated RBC (0-0) K/uL Nucleated RBC % (auto) % Sodium (136-145) mmol/L Potassium (3.5-5.1) mmol/L Chloride (98-107) mmol/L Carbon Dioxide (21-32) mmol/L Anion Gap (3-11) BUN (7-18) mg/dl Creatinine (0.6-1.2) mg/dl Est Cr Clr Drug Dosing ml/min Est GFR ( Amer) ml/min Est GFR (Non-Af Amer) ml/min BUN/Creatinine Ratio (10-20) Glucose (70-99) mg/dl Lactate 1.2 (0.4-2.0) mmol/L Calcium (8.5-10.1) mg/dl Total Bilirubin (0.2-1) mg/dl Direct Bilirubin (0-0.2) mg/dl AST (15-37) U/L ALT (12-78) Alkaline Phosphatase (45-117) U/L Troponin I (0-0.045) ng/ml Total Protein (6.4-8.2) gm/dl Albumin (3.4-5.0) gm/dl Procalcitonin (0-0.5) ng/ml SARS-CoV-2 (PCR) NEGATIVE (Negative) Influenza Type A (PCR) Negative (Neg) Influenza Type B (PCR) Negative (Neg) RSV (RT-PCR) Negative (Neg) Imaging Data My Impression: Chest x-ray: Per my interpretation there is bilateral patchy infiltrates suggestive of bilateral pneumonia. ECG Data Attestation: I personally reviewed and interpreted this ECG as follows: Additional Comments: Twelve-lead EKG: Per my interpretation there is a sinus tach at a rate of 116. No ST elevation. No PVCs. Normal QTC. MDM Narrative 66-year-old female presents with dizziness, nausea and some weakness. She has a fever here today of 38.4. Oxygen saturations are 66% on room air. She does use 2 L of oxygen at home. On 2 L here she is 86% saturations.Her vital signs show that she has a fever of 38.4. Heart rate in 118. The patient CBC was normal. BUN is 30 and creatinine is 2.62. Baseline creatinine from March is 1.4. EKG shows a sinus tach at a rate of 116. Troponin is elevated 0.224. Covid, flu and RSV are negative. The patient was given IV cefepime, p.o. Tylenol, p.o. aspirin, IV fluids and IV Zofran. She was given 1 L normal saline. She will be seen by the hospitalist for further inpatient evaluation and care. Impression & Plan Pneumonia, ELSIE (acute kidney injury), Elevated troponin, Hypoxia Discharge Plan Visit Data Chief Complaint: Illness Stated Complaint: ILLNESS x3D NOW DIZZY & SOB Discharge Problem: Pneumonia, ELSIE (acute kidney injury), Elevated troponin, Hypoxia Patient Disposition: Being Evaluated by Hospitalist Forms Stand Alone Forms: My [facility] Prescriptions Prescriptions: No Action levothyroxine 200 mcg Tablet 200 mcg PO QAM RF: 0 omeprazole 20 mg Capsule,Delayed Release(Dr/Ec) 20 mg PO HS RF: 0 gabapentin 300 mg Capsule 300 mg PO TID RF: 0 furosemide [Lasix] 40 mg tablet 20 mg PO BID RF: 0 trazodone 50 mg tablet 50 mg PO HS RF: 0 magnesium oxide 400 mg (241.3 mg magnesium) Tablet 400 mg PO DAILY RF: 0 insulin aspart U-100 [Novolog U-100 Insulin aspart] 100 unit/mL solution 0 unit subcut ACHS RF: 0 colchicine 0.6 mg Tablet 0.3 mg PO DAILY RF: 0 duloxetine 30 mg Capsule,Delayed Release(Dr/Ec) 30 mg PO DAILY RF: 0 Tresiba FlexTouch U-100 100 unit/mL (3 mL) Insulin Pen 60 unit SUBCUT HS RF: 0 lidocaine 5 % Adhesive Patch,Medicated 1 patch transdermal HS Qty: 15 RF: 0 cyclobenzaprine 10 mg Tablet 10 mg PO HS PRN (Reason: Muscle Spasm) RF: 0 duloxetine 60 mg capsule,delayed release(DR/EC) 60 mg PO QAM RF: 0 potassium chloride 10 mEq tablet,ER particles/crystals 10 meq PO Q OTHER DAY RF: 0 tramadol 50 mg tablet 50 mg PO Q8H PRN (Reason: Pain) RF: 0 cholecalciferol (vitamin D3) 25 mcg (1,000 unit) Capsule 1,000 unit PO QAM Qty: 30 RF: 1 insulin aspart U-100 [Novolog Flexpen U-100 Insulin] 100 unit/mL (3 mL) insulin pen 40 unit SUBCUT WM RF: 0 Trulicity 3 mg/0.5 mL pen injector 3 mg SUBCUT WK RF: 0 dicyclomine 20 mg tablet 20 mg PO QID PRN (Reason: abdominal pain) RF: 0 nortriptyline [Pamelor] 50 mg capsule 50 mg PO HS RF: 0 levothyroxine 50 mcg tablet 50 mcg PO QAM RF: 0 docusate sodium [Colace] 100 mg capsule 100 mg PO BID PRN (Reason: Constipation) RF: 0 meclizine 12.5 mg tablet 12.5 mg PO TID PRN (Reason: Dizziness) RF: 0 clonazepam 0.5 mg Tablet 0.5 mg PO BID PRN (Reason: anxiety) Qty: 0 RF: 0 ropinirole 2 mg Tablet 2 mg PO HS RF: 0 Referrals Referrals: Kevin Whiteside DO [Primary Care Provider] - Discharge Problem: Pneumonia Qualifiers: Pneumonia type: due to unspecified organism Laterality: bilateral Lung location: unspecified part of lung Qualified Code(s): J18.9 - Pneumonia, unspecified organism
[2021-09-20 07:09] LABS: Bilirubin,Total 0.7 mg/dl (0.2-1); Total Protein 7.2 gm/dl (6.4-8.2); Troponin I 0.224 ng/ml (0-0.045)
[2021-09-20 07:18] LABS: Influenza A virus by PCR Negative (Neg); Influenza B virus by PCR Negative (Neg); RSV by PCR Negative (Neg); SARS CoV2 RNA(COVID-19) InHosp NEGATIVE (Negative)
[2021-09-20] MEDS ORDERED: ASPIRIN CHEW 324 MG PO STA (07:54)
[2021-09-20] MEDS ORDERED: PHARMACY GLYCEMIC MGMT CONSULT PRN (08:15)
--- NOTE | 2021-09-20 08:27 | XRay Report ---
XR chest 1V portable CLINICAL HISTORY: Fever, Weakness. Evaluate cardiopulmonary status COMPARISON STUDY: 04/01/2021 TECHNIQUE: 1 view of the chest FINDINGS: Single frontal view of the chest demonstrates the heart size to be mildly enlarged. Patchy interstiti al and alveolar opacities are now present bilaterally. The findings are most characteristic of a mary l type pneumonitis. Covid 19 pneumonia should be excluded. There is no evidence for pleural effusion. There is no evidence for vascular congestion. There is no acute osseous pathology. IMPRESSION: Patchy interstitial and alveolar opacities are now seen bilaterally characteristic of a v iral type pneumonitis and probable Covid 19 pneumonia. ACT 112: Negative or not required by law. Electronically signed by: Jose Coppola M.D. 09/20/2021 8:26 AM
[2021-09-20 08:59] LABS: Appearance Urine Cloudy (Clear); Bacteria Urine Automated 4+ (Negative); Bilirubin Urine Negative (Negative); Blood Urine Negative (Negative); Color Urine Dark Yellow; Glucose Urine UA Negative (Negative); Ketones Urine Negative (Negative); Leukocyte Esterase Urine 2+ (Negative); Nitrite Urine Negative (Negative); Protein Urine Trace (Negative); RBC Urine Automated 0-4 /hpf (0-4); Specific Gravity Urine 1.015 (1.000-1.030); Urobilinogen Urine Negative (Negative); WBC Urine Automated >30 /hpf (0-5)
[2021-09-20 09:12] LABS: Allen Test Pos (Pos); Base Excess ABG 1.6 mEq/L (-9-1.8); HCO3 ABG 27 mmol/L (19-24); Oxygen Saturation ABG 97.3 % (90-95); PCO2 ABG 43 mmHg (35-46); PO2 ABG 97 mmHg (80-95); pH ABG 7.41 (7.35-7.45)
--- NOTE | 2021-09-20 10:07 | History & Physical Report ---
Date of Service September 20, 2021 Assessment & Plan (1) Acute respiratory failure with hypoxia: (2) Pneumonia: Plan: Pt presents with fever, cough, confusion Meets sirs criteria for sepsis given tachycardia, fever, encephalopathy, WBC minimally elevated, (pt also has elsie and elev. trop.) CXR concerning for bilateral, poss. viral pna Covid, RSV, influenza negative blood cultx - pending in the ED given cefepime, and 1L of NS At home supposed to use 2L of suppl. O2 as needed Currently on 4L of O2 obtain ABG obtain sputum cultx obtain procalcitonin Cont. w/ ceftriaxone and doxycycline add guaifenesine, flutter valve, incentive spirometry Given CXR findings and elevated troponin, concern for poss. pulm. edema/ chf exacerbation will also obtain pro-BNP and chest CT to eval. lung parenchyma more closely cautious with IVF (3) ELSIE (acute kidney injury): Plan: ELSIE on CKD stage III baseline Cr about 1.4-1.5 Current Cr 2.6 received 1L of NS in the ED at this point not clear if this is pre-renal, secondary to poss. CHF exacerb, or 2/2 infection as UA not obtained at this time Pt presents with no dysuria or hematuria Reports ok PO intake hold home lasix for now obtain UA/ Ucultx Recheck BMP this PM, if cont. to concern, consider nephrology eval. Poss. UTI - pt with elev. Cr, fever - prelim. UA c/w UTI - continue to follow final results - cont. Abx, as above (4) Elevated troponin: Plan: Most likely demand ischemia in the setting of acute illness and ELSIE on CKD Pt reports no chest pain received ASA in ED will repeat troponin, may obtain echo and cardiology eval if cont. to be a concern (pt has hx of HIT so can not use heparin if needed anticoag.) (5) Sleep apnea: Plan: Cont. CPAP Morbid obesity, BMI 58 - counselling provided and referral to dietitian recommended Chronic conditions: Hypothyroidism- cont. home levothyroxine Fibromyalgia, chronic back pain - resume home meds as appropriate DVT ppx: SCDs, hx of HIT therefore avoid heparin products Code: Full History of Present Illness Chief Complaint: Fever, cough, confusion Primary Care Provider: Kevin Whiteside DO Pt is a 66 yo F with hx of DM type 2, morbid obesity, ELISSA on CPAP, CKD stage III, R carotid artery stenosis, hypothyroidism, fibromyalgia, chronic back pain (lumbar stenosis), hx of DVT/PE and HIT who presents with fever, cough and confusion. Pt reports not feeling well, and "achey" for the past couple of days. Today she also noted to be more confused, "walking into the poe" and "not making sense". She noted fever and therefore presented to ER for further evaluation. Pt lives alone. Says she uses 2L of suppl. O2 with CPAP at home and that she is supposed to use 2L during the day as needed however she usually does not use it during the day. Cough is occasional with some yellow sputum. She does not weigh herself regularly but reports no significant weight gain or weight loss. Denies any edema in her legs or abdominal girth. Denies having any chest pain, or abdominal pain at home. Also denies n/v, dysuria, hematuria. In the ED she was found hypoxic in 80s on 2L of suppl. O2, currently pt is on 4L. She was also found to have elevated Cr at 2.6, elevated troponin. CXR concerning for pneumonia. Received 1L of NS and cefepime in the ED. Allergies Allergy/AdvReac Type Severity Reaction Status Date / Time morphine Allergy Severe VIOLENT Verified 09/20/21 07:34 REACTION-"ALMOST " SWELLING tetanus toxoid, adsorbed Allergy Intermediate PASSED OUT Verified 09/20/21 07:34 AND GOT SICK WHEN A CHILD bupropion [From Wellbutrin] AdvReac Intermediate Recurrent Verified 09/20/21 09:25 falls as per patient codeine AdvReac Intermediate Hallucinati Verified 09/20/21 07:34 ons empagliflozin AdvReac Intermediate YEAST Verified 09/20/21 07:34 [From Jardiance] INFECTIONS heparin AdvReac Intermediate HIT; FLUID Verified 09/20/21 07:34 IN LUNGS hydrocodone [From Vicodin] AdvReac Intermediate sleepiness Verified 09/20/21 07:34 Home Medications Medication Instructions Recorded Confirmed Type levothyroxine 200 mcg tablet 200 mcg PO QAM 06/09/18 09/20/21 History omeprazole 20 mg capsule,delayed 20 mg PO HS 06/09/18 09/20/21 History release cyclobenzaprine 10 mg tablet 10 mg PO HS PRN 12/08/18 09/20/21 History duloxetine 60 mg capsule,delayed 60 mg PO QAM 12/23/18 09/20/21 History release gabapentin 300 mg capsule 300 mg PO TID 05/09/19 09/20/21 History colchicine 0.6 mg tablet 0.3 mg PO DAILY 01/25/20 09/20/21 History duloxetine 30 mg capsule,delayed 30 mg PO DAILY 01/25/20 09/20/21 History release furosemide 40 mg tablet (Lasix) 20 mg PO BID 01/25/20 09/20/21 History insulin aspart U-100 100 unit/mL 0 unit SUBCUT ACHS 01/25/20 09/20/21 History subcutaneous solution (Novolog U-100 Insulin aspart) magnesium oxide 400 mg (241.3 mg 400 mg PO DAILY 01/25/20 09/20/21 History magnesium) tablet trazodone 50 mg tablet 50 mg PO HS 01/25/20 09/20/21 History potassium chloride 10 mEq 10 meq PO Q OTHER DAY 03/10/20 09/20/21 History tablet,extended release(part/cryst) tramadol 50 mg tablet 50 mg PO Q8H PRN 07/19/20 09/20/21 History cholecalciferol (vitamin D3) 25 1,000 unit PO QAM #30 cap 07/22/20 09/20/21 Rx mcg (1,000 unit) capsule insulin degludec 100 unit/mL (3 60 unit SUBCUT HS 11/24/20 09/20/21 History mL) subcutaneous pen (Tresiba FlexTouch U-100 insulin) lidocaine 5 % topical patch 1 patch TRANSDERMAL HS #15 ea 11/26/20 09/20/21 Rx dicyclomine 20 mg tablet 20 mg PO QID PRN 03/27/21 09/20/21 History docusate sodium 100 mg capsule 100 mg PO BID PRN 03/27/21 09/20/21 History (Colace) dulaglutide 3 mg/0.5 mL 3 mg SUBCUT WK 03/27/21 09/20/21 History subcutaneous pen injector (Trulicity) insulin aspart U-100 100 unit/mL 40 unit SUBCUT WM 03/27/21 09/20/21 History (3 mL) subcutaneous pen (Novolog Flexpen U-100 Insulin aspart) levothyroxine 50 mcg tablet 50 mcg PO QAM 03/27/21 09/20/21 History meclizine 12.5 mg tablet 12.5 mg PO TID PRN 03/27/21 09/20/21 History nortriptyline 50 mg capsule 50 mg PO HS 03/27/21 09/20/21 History (Pamelor) clonazepam 0.5 mg tablet 0.5 mg PO BID PRN #0 tab 03/28/21 09/20/21 Rx ropinirole 2 mg tablet 2 mg PO HS 09/20/21 09/20/21 History Past Med/Surg History Medical History Carotid stenosis, right CKD (chronic kidney disease), stage III Depression with anxiety Diabetes Diabetes mellitus, type II Fibromyalgia GERD (gastroesophageal reflux disease) History of DVT (deep vein thrombosis) History of pulmonary embolism s/p zoraida filter HIT (heparin-induced thrombocytopenia) HLD (hyperlipidemia) HTN (hypertension) Hypothyroidism Morbid obesity ELISSA on CPAP Presence of IVC filter RLS (restless legs syndrome) Sepsis Subclavian artery stenosis Surgical History History of cholecystectomy History of colon resection secondary to R colon perforation, resected treated with colostomy and eventual reversal in 2008, Dr. 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 O2) Eyes: PERRL, conjunctivae normal, anicteric sclerae ENMT: external ear and nose normal, oropharynx normal Neck: trachea midline, no thyromegaly Respiratory: normal respiratory effort (diminished breath sounds, mild diff. rhonchi, no wheezing or crackles noted); does not use accessory muscles Cardiovascular: Rate/Rhythm: + tachycardic Heart Sounds: + murmur (soft syst.) Chest (Breasts): Chest: normal inspection of chest Gastrointestinal (Abdomen): normal bowel sounds, soft, nontender, no hepatosplenomegaly (obese, nontender to palpation) Musculoskeletal: no cyanosis or clubbing, extremities motor strength 5/5 Skin: no rashes, warm and dry Neurologic: PERRL, EOMI, accommodation nl, no face palsy, no dysarthria Psychiatric: A+Ox3, euthymic affect Genitourinary: no CVA tenderness Lymphatic: + lymphedema (minimal pedal edema) Results & Data Results & Data ([facility]) Vital Signs (Past 12 Hours) Vital Signs Temp Pulse Pulse Resp BP BP Pulse Ox 09/20/21 08:49 37.2 C 09/20/21 08:21 104 H 20 139/85 93 09/20/21 08:05 99 H 24 131/86 09/20/21 06:58 91 09/20/21 06:11 38.4 C H 118 H 100/74 96 09/20/21 05:57 38.4 C H 118 H 100/74 66 L Laboratory Results 09/20/21 09/20/21 09/20/21 Range/Units 08:55 08:00 07:18 WBC (4.8-10.8) K/uL RBC (4.2-5.4) M/uL Hgb (12.0-16.0) g/dL Hct (37-47) % MCV (80-100) fL MCH (25-34) pg MCHC (32-36) g/dL RDW Std Deviation (36.4-46.3) fL RDW Coeff of Adolfo (11.5-14.5) % Plt Count (130-400) K/uL MPV (7.4-10.4) fL Immature Gran % (Auto) % Neut % (Auto) % Lymph % (Auto) % [place] % (Auto) % Eos % (Auto) % Baso % (Auto) % Neut # (Auto) (1.4-6.5) K/uL Lymph # (Auto) (1.2-3.4) K/uL [place] # (Auto) (0.11-0.59) K/uL Eos # (Auto) (0-0.5) K/uL Baso # (Auto) (0-0.2) K/uL Immature Gran # (Auto) (0.00-0.02) K/uL Absolute Nucleated RBC (0-0) K/uL Nucleated RBC % (auto) % ABG pH 7.41 (7.35-7.45) ABG pCO2 43 (35-46) mmHg ABG pO2 97 H (80-95) mmHg ABG HCO3 27 H (19-24) mmol/L ABG O2 Saturation 97.3 H (90-95) % ABG Base Excess 1.6 (-9-1.8) mEq/L Robert Test Pos (Pos) Barometric Pressure 731.7 mm/Hg Oxygen Given 3L Sodium (136-145) mmol/L Potassium (3.5-5.1) mmol/L Chloride (98-107) mmol/L Carbon Dioxide (21-32) mmol/L Anion Gap (3-11) BUN (7-18) mg/dl Creatinine (0.6-1.2) mg/dl Est Cr Clr Drug Dosing ml/min Est GFR ( Amer) ml/min Est GFR (Non-Af Amer) ml/min BUN/Creatinine Ratio (10-20) Glucose (70-99) mg/dl Lactate 1.2 (0.4-2.0) mmol/L Calcium (8.5-10.1) mg/dl Total Bilirubin (0.2-1) mg/dl Direct Bilirubin (0-0.2) mg/dl AST (15-37) U/L ALT (12-78) Alkaline Phosphatase (45-117) U/L Troponin I (0-0.045) ng/ml NT-Pro-B Natriuret Pep (0-900) pg/ml Total Protein (6.4-8.2) gm/dl Albumin (3.4-5.0) gm/dl Procalcitonin (0-0.5) ng/ml Urine Color Dark Yellow Urine Appearance Cloudy A (Clear) Urine pH 5.0 (4.5-7.5) Ur Specific [place] 1.015 (1.000-1.030) Urine Protein Trace H (Negative) Urine Glucose (UA) Negative (Negative) Urine Ketones Negative (Negative) Urine Blood Negative (Negative) Urine Nitrite Negative (Negative) Urine Bilirubin Negative (Negative) Urine Urobilinogen Negative (Negative) Ur Leukocyte Esterase 2+ H (Negative) Urine WBC (Auto) >30 H (0-5) /hpf Urine RBC (Auto) 0-4 (0-4) /hpf U Hyaline Cast (Auto) 1-5 (0-5) /lpf U Epithel Cells (Auto) 10-20 H (0-5) /lpf Urine Bacteria (Auto) 4+ H (Negative) SARS-CoV-2 (PCR) (Negative) Influenza Type A (PCR) (Neg) Influenza Type B (PCR) (Neg) RSV (RT-PCR) (Neg) 09/20/21 09/20/21 09/20/21 Range/Units 06:14 05:59 05:59 WBC (4.8-10.8) K/uL RBC (4.2-5.4) M/uL Hgb (12.0-16.0) g/dL Hct (37-47) % MCV (80-100) fL MCH (25-34) pg MCHC (32-36) g/dL RDW Std Deviation (36.4-46.3) fL RDW Coeff of Adolfo (11.5-14.5) % Plt Count (130-400) K/uL MPV (7.4-10.4) fL Immature Gran % (Auto) % Neut % (Auto) % Lymph % (Auto) % [place] % (Auto) % Eos % (Auto) % Baso % (Auto) % Neut # (Auto) (1.4-6.5) K/uL Lymph # (Auto) (1.2-3.4) K/uL [place] # (Auto) (0.11-0.59) K/uL Eos # (Auto) (0-0.5) K/uL Baso # (Auto) (0-0.2) K/uL Immature Gran # (Auto) (0.00-0.02) K/uL Absolute Nucleated RBC (0-0) K/uL Nucleated RBC % (auto) % ABG pH (7.35-7.45) ABG pCO2 (35-46) mmHg ABG pO2 (80-95) mmHg ABG HCO3 (19-24) mmol/L ABG O2 Saturation (90-95) % ABG Base Excess (-9-1.8) mEq/L Robert Test (Pos) Barometric Pressure mm/Hg Oxygen Given Sodium (136-145) mmol/L Potassium (3.5-5.1) mmol/L Chloride (98-107) mmol/L Carbon Dioxide (21-32) mmol/L Anion Gap (3-11) BUN (7-18) mg/dl Creatinine (0.6-1.2) mg/dl Est Cr Clr Drug Dosing ml/min Est GFR ( Amer) ml/min Est GFR (Non-Af Amer) ml/min BUN/Creatinine Ratio (10-20) Glucose (70-99) mg/dl Lactate (0.4-2.0) mmol/L Calcium (8.5-10.1) mg/dl Total Bilirubin (0.2-1) mg/dl Direct Bilirubin (0-0.2) mg/dl AST (15-37) U/L ALT (12-78) Alkaline Phosphatase (45-117) U/L Troponin I (0-0.045) ng/ml NT-Pro-B Natriuret Pep 5005 H (0-900) pg/ml Total Protein (6.4-8.2) gm/dl Albumin (3.4-5.0) gm/dl Procalcitonin 0.22 (0-0.5) ng/ml Urine Color Urine Appearance (Clear) Urine pH (4.5-7.5) Ur Specific [place] (1.000-1.030) Urine Protein (Negative) Urine Glucose (UA) (Negative) Urine Ketones (Negative) Urine Blood (Negative) Urine Nitrite (Negative) Urine Bilirubin (Negative) Urine Urobilinogen (Negative) Ur Leukocyte Esterase (Negative) Urine WBC (Auto) (0-5) /hpf Urine RBC (Auto) (0-4) /hpf U Hyaline Cast (Auto) (0-5) /lpf U Epithel Cells (Auto) (0-5) /lpf Urine Bacteria (Auto) (Negative) SARS-CoV-2 (PCR) NEGATIVE (Negative) Influenza Type A (PCR) Negative (Neg) Influenza Type B (PCR) Negative (Neg) RSV (RT-PCR) Negative (Neg) 09/20/21 09/20/21 Range/Units 05:59 05:59 WBC 10.93 H (4.8-10.8) K/uL RBC 4.16 L (4.2-5.4) M/uL Hgb 13.1 (12.0-16.0) g/dL Hct 41.5 (37-47) % MCV 99.8 (80-100) fL MCH 31.5 (25-34) pg MCHC 31.6 L (32-36) g/dL RDW Std Deviation 58.0 H (36.4-46.3) fL RDW Coeff of Adolfo 16.1 H (11.5-14.5) % Plt Count 415 H (130-400) K/uL MPV 9.9 (7.4-10.4) fL Immature Gran % (Auto) 4.8 % Neut % (Auto) 62.8 % Lymph % (Auto) 23.0 % [place] % (Auto) 7.0 % Eos % (Auto) 1.7 % Baso % (Auto) 0.7 % Neut # (Auto) 6.86 H (1.4-6.5) K/uL Lymph # (Auto) 2.51 (1.2-3.4) K/uL [place] # (Auto) 0.77 H (0.11-0.59) K/uL Eos # (Auto) 0.19 (0-0.5) K/uL Baso # (Auto) 0.08 (0-0.2) K/uL Immature Gran # (Auto) 0.52 H (0.00-0.02) K/uL Absolute Nucleated RBC 0.10 H (0-0) K/uL Nucleated RBC % (auto) 1.0 % ABG pH (7.35-7.45) ABG pCO2 (35-46) mmHg ABG pO2 (80-95) mmHg ABG HCO3 (19-24) mmol/L ABG O2 Saturation (90-95) % ABG Base Excess (-9-1.8) mEq/L Robert Test (Pos) Barometric Pressure mm/Hg Oxygen Given Sodium 134 L (136-145) mmol/L Potassium 4.0 (3.5-5.1) mmol/L Chloride 99 (98-107) mmol/L Carbon Dioxide 26 (21-32) mmol/L Anion Gap 9.0 (3-11) BUN 30 H (7-18) mg/dl Creatinine 2.62 H (0.6-1.2) mg/dl Est Cr Clr Drug Dosing 32.4 ml/min Est GFR ( Amer) 21.2 ml/min Est GFR (Non-Af Amer) 18.3 ml/min BUN/Creatinine Ratio 11.6 (10-20) Glucose 216 H (70-99) mg/dl Lactate (0.4-2.0) mmol/L Calcium 8.8 (8.5-10.1) mg/dl Total Bilirubin 0.7 (0.2-1) mg/dl Direct Bilirubin 0.3 H (0-0.2) mg/dl AST 63 H (15-37) U/L ALT 54 (12-78) Alkaline Phosphatase 111 (45-117) U/L Troponin I 0.224 H* (0-0.045) ng/ml NT-Pro-B Natriuret Pep (0-900) pg/ml Total Protein 7.2 (6.4-8.2) gm/dl Albumin 2.8 L (3.4-5.0) gm/dl Procalcitonin (0-0.5) ng/ml Urine Color Urine Appearance (Clear) Urine pH (4.5-7.5) Ur Specific [place] (1.000-1.030) Urine Protein (Negative) Urine Glucose (UA) (Negative) Urine Ketones (Negative) Urine Blood (Negative) Urine Nitrite (Negative) Urine Bilirubin (Negative) Urine Urobilinogen (Negative) Ur Leukocyte Esterase (Negative) Urine WBC (Auto) (0-5) /hpf Urine RBC (Auto) (0-4) /hpf U Hyaline Cast (Auto) (0-5) /lpf U Epithel Cells (Auto) (0-5) /lpf Urine Bacteria (Auto) (Negative) SARS-CoV-2 (PCR) (Negative) Influenza Type A (PCR) (Neg) Influenza Type B (PCR) (Neg) RSV (RT-PCR) (Neg) Code Status & VTE Plan VTE Prophylaxis Plan VTE Prophylaxis will be ordered: Yes (1) Pneumonia Laterality: bilateral Lung location: unspecified part of lung Pneumonia type: due to unspecified organism Qualified Code(s): J18.9 - Pneumonia, unspecified organism
--- NOTE | 2021-09-20 10:44 | CT Scan Report ---
CT chest diagnostic wo con CLINICAL HISTORY: abnormal CXR . Follow-up interstitial and alveolar opacities in a patient with feve r COMPARISON STUDY: Portable chest from 09/20/2021 and previous CTA chest from 04/04/2021 CT DOSE: 1255.67 mGy.cm TECHNIQUE: Standard CT of the Chest was performed without IV contrast. A dose lowering technique was utilized adhering to the principles of ALARA. FINDINGS: Airway: The airway is clear. No endobronchial lesion is identified. Lungs: Compared to the previous CT examination, chronic interstitial fibrotic changes are again seen bilaterally which are not significantly changed. These are accentuated on patient's portable chest ra diograph related to the patient's body habitus. The lungs are otherwise clear of acute alveolar opaci ties, air bronchograms or pulmonary nodules. No definite CT evidence for viral type pneumonitis is id entified. Pleura: There is no evidence for pleural effusion. There is no evidence for pneumothorax. Mediastinum: There is no evidence for pathologic adenopathy on these limited noncontrast images. Stab le reactive lymph nodes are again seen. The heart size is again enlarged. There is coronary artery an d mitral valvular calcification present. The thoracic aorta is within normal limits. There is atheros clerotic calcification of the aortic arch and origin of the great vessels. There is no evidence for p ericardial effusion. Upper abdomen: The adrenal glands are normal bilaterally. Osseous structures: There is no acute osseous pathology. IMPRESSION: 1. Compared to the previous CT examination, diffuse interstitial fibrotic changes are again seen and essentially unchanged. 2. There is otherwise no acute chest disease on these noncontrast images. 3. The finding seen on the chest radiograph are accentuated by the patient's body habitus. There is n o evidence for viral type pneumonitis. ACT 112: Negative or not required by law. Electronically signed by: Jose Coppola M.D. 09/20/2021 10:42 AM
--- NOTE | 2021-09-20 11:58 | Electrocardiogram Report ---
Test Reason : Blood Pressure : / mmHG Vent. Rate : 116 BPM Atrial Rate : 116 BPM P-R Int : 152 ms QRS Dur : 078 ms QT Int : 304 ms P-R-T Axes : 080 049 048 degrees QTc Int : 422 ms Poor data quality, interpretation may be adversely affected Sinus tachycardia Nonspecific ST and T wave abnormality Abnormal ECG When compared with ECG of 06-APR-2021 23:43, Nonspecific T wave abnormality now evident in Anterior leads Confirmed by Bright David ([id number]) on 09/20/2021 11:58:13 AM Referred By: REFERRED SELF Confirmed By:Bright David
[2021-09-20] MEDS: LEVOTHYROXINE SODIUM 50 MCG TABLET PO SCH (12:37)
[2021-09-20] MEDS: DULoxetine HCL 60 MG CAP PO SCH (12:37)
[2021-09-20] MEDS: DOXYCYCLINE HYCLATE 100 MG CAP PO SCH ×2 (12:37→21:23)
[2021-09-20] MEDS: guaiFENesin 600 MG TABCR PO SCH ×2 (12:37→21:23)
[2021-09-20] MEDS: DULoxetine HCL 30 MG CAP PO SCH (12:37)
[2021-09-20] MEDS: LEVOTHYROXINE SODIUM 200 MCG TABLET PO SCH (12:37)
[2021-09-20] MEDS: INSULIN ASPART PER UNIT SC SCH ×2 (13:14→19:29)
[2021-09-20 14:06] LABS: BUN Creatinine Ratio 12.1 (10-20); Calcium 8.2 mg/dl (8.5-10.1); Est GFR (African American) 24.1 ml/min; Est GFR (Non-African American) 20.8 ml/min; Potassium 3.8 mmol/L (3.5-5.1)
[2021-09-20] MEDS: HEPARIN SOD 5,000 UNIT/0.5 ML VIAL SQ SCH (14:14)
--- NOTE | 2021-09-20 14:38 | Pharmacy Report ---
Pharmacy Glycemic Short Note 2 - Date of Service September 20, 2021 - Glycemic Short BSG Results (Last 24 hours): 09/20/21 09/20/21 09/20/21 05:59 13:07 13:42 Glucose 216 H 152 H POC Glucose 140 H OUTPATIENT ANTIDIABETIC REGIMEN: * Trulicity (Dulaglutide) SQ Weekly * Tresiba (Insulin degludec) 60 units SQ HS * NovoLog 40 units SQ with meals + SSI * A1c = 8.4% on 04/02/21 (outdated) ASSESSMENT: * 66yo T2DM female with unknown degree of outpatient control as A1c is outdated. Will re-order for tomorrow w/ AM labs * Pt is maintained on SQ GLP1 + moderately high SQ basal bolus insulin regimen. * Outpatient basal insulin is Tresiba (Insulin degludec) which is non-formulary; will sub to Lantus for inpatient use * Pt NPO- will reduce outpatient dosing of basal and set a weight based NovoLog scale PLAN FOR INPATIENT GLYCEMIC CONTROL: * Hold outpatient diabetes medications * Basal insulin * Lantus 40 units SQ HS (this is a 35% reduction in outpatient dosing) * Bolus insulin * NovoLog per scale ACHS or Q6hrs while NPO * Goal Range: Low 110 mg/dL - High 140 mg/dL * Correction Factor: 10 mg/dL/unit * Nutritional / Prandial insulin per carb ratio of 1 unit per 3 grams CHO consumed PLAN FOR DISCHARGE: * TBD based on A1c
[2021-09-20] MEDS ORDERED: traMADol HCL 50 MG TABLET PO STA (20:50)
[2021-09-20] MEDS ORDERED: INSULIN GLARGINE SOLOSTAR 100 UNITS/ML 3 ML PEN SC SCH (21:00)
[2021-09-20] MEDS: PANTOprazole 40 MG TAB PO SCH (21:23)
[2021-09-20] MEDS: NORTRIPTYLINE HCL 25 MG CAP PO SCH (21:23)
[2021-09-21] MEDS: HEPARIN SOD 5,000 UNIT/0.5 ML VIAL SQ SCH (00:08)
[2021-09-21] MEDS: INSULIN ASPART PER UNIT SC SCH ×5 (00:15→20:26)
[2021-09-21] MEDS: OXYMETAZOLINE 0.05% 30 ML BTL SCH ×3 (02:03→20:11)
[2021-09-21] MEDS: ACETAMINOPHEN 325 MG TAB PO PRN ×2 (03:47→16:39)
[2021-09-21] MEDS: LEVOTHYROXINE SODIUM 50 MCG TABLET PO SCH (05:47)
[2021-09-21] MEDS: LEVOTHYROXINE SODIUM 200 MCG TABLET PO SCH (05:47)
[2021-09-21 08:28] LABS: Estimated Average Glucose 163 mg/dl; Hemoglobin A1C 7.3 % (4.5-5.6)
[2021-09-21] MEDS: DOXYCYCLINE HYCLATE 100 MG CAP PO SCH ×2 (08:35→20:12)
[2021-09-21] MEDS: guaiFENesin 600 MG TABCR PO SCH ×2 (08:35→20:11)
[2021-09-21] MEDS: DULoxetine HCL 30 MG CAP PO SCH (08:35)
[2021-09-21 09:25] LABS: Hematocrit (blood only) 39.5 % (37-47); Mean Corpuscular Hemoglobin 31.2 pg (25-34); Mean Corpuscular Hgb Conc 30.4 g/dL (32-36); Mean Corpuscular Volume 102.6 fL (80-100); Mean Platelet Volume 9.7 fL (7.4-10.4); Platelet Count 346 K/uL (130-400); RDW Standard Deviation 58.9 fL (36.4-46.3); Red Blood Count 3.85 M/uL (4.2-5.4); White Blood Count 10.54 K/uL (4.8-10.8)
[2021-09-21 09:30] LABS: Calcium 8.4 mg/dl (8.5-10.1); Creatinine Clr Calc Pharmacy 47.5 ml/min; Est GFR (African American) 33.9 ml/min; Est GFR (Non-African American) 29.2 ml/min; Magnesium 1.6 mg/dl (1.8-2.4); Potassium 3.7 mmol/L (3.5-5.1)
[2021-09-21] MEDS: DULoxetine HCL 60 MG CAP PO SCH (10:07)
[2021-09-21] MEDS: cefTRIAXone SODIUM 2,000 MG in DEXTROSE 5% 50 ML IV SCH (10:07)
--- NOTE | 2021-09-21 10:40 | Consultation Report ---
NEPHROLOGY CONSULTATION NOTE DATE OF SERVICE: 09/21/2021 REASON FOR CONSULTATION: Acute renal failure on background CKD III. HISTORY OF PRESENT ILLNESS: The patient is a 66-year-old female who presented to the hospital yester day because of productive cough, dizziness, weakness, nausea and also fever. She is currently admitt ed with a diagnosis of pneumonia. COVID-19 test negative. She was found to have some acute renal fa ilure with a creatinine of 2.6, up from her last blood work with a creatinine of 1.4 back in 03/2021. Overnight, kidney function has improved and is now down to 1.78. She is currently on oxygen at home at 2 liters as well as CPAP. She received very little IV fluids since being admitted. MEDICATIONS: Home medication list was reviewed in detail. She does take Lasix 40 twice daily as wel l as magnesium oxide. Denies taking any NSAIDs. ALLERGIES: LIST WAS REVIEWED IN DETAIL. PAST MEDICAL AND SURGICAL HISTORY: Includes peripheral vascular disease with right carotid stenosis, chronic kidney disease stage III with a baseline creatinine around 1.5, depression with anxiety, ricardo betes for 20+ years, fibromyalgia, GERD, history of DVT, history of pulmonary embolism, status post I VC filter, history of heparin-induced thrombocytopenia, hyperlipidemia, hypertension, hypothyroidism, morbid obesity, obstructive sleep apnea, on CPAP, restless legs syndrome, history of subclavian walker ry stenosis, cholecystectomy, colon resection, total thyroidectomy, total right knee replacement, tra cheostomy when she had severe acute respiratory failure secondary to pneumonia in 2010. FAMILY HISTORY: Negative for renal disease or dialysis. SOCIAL HISTORY: Smoking in the past, but not currently. No alcohol. She is single. She lives [facility]. She uses cane and walker for ambulation. REVIEW OF SYSTEMS: Reviewed and is as per HPI. Twelve systems reviewed and unless stated otherwise in HPI was negative. Positive review of systems included nausea, poor appetite, weakness, shortness of breath, cough and fever. PHYSICAL EXAMINATION: GENERAL: Morbidly obese white female who is awake, alert, oriented x3. She was able to give me a de tailed account of her medical problem and history. VITAL SIGNS: Blood pressure is 141/78, pulse rate 80, temperature 36.8, 91% on 4 L oxygen. HEENT: Mucous membrane is moist. NECK: Supple. No jugular venous distention. CHEST: Bilateral decreased breath sounds, poor inspiratory effort. CARDIOVASCULAR: S1 and S2, regular. ABDOMEN: Soft, nontender, obese. EXTREMITIES: Show trace to 1+ edema. LABORATORY TEST: Baseline creatinine is 1.4 as of 03/2021. On admission had a creatinine of 2.6, thi s morning is slightly better at 1.78. Sodium 138, potassium 3.7, calcium 8.4, magnesium 1.6. Chest x -ray shows patchy interstitial and alveolar opacities consistent with viral type pneumonitis. CT [address], similar finding. ASSESSMENT AND PLAN: A 66-year-old female admitted with what appears to be a pneumonitic process, pr obably viral and has associated acute renal failure on background chronic kidney disease III. Acute renal failure: She does have some underlying chronic kidney disease III, which is not surprisi ng given her 20+ years of diabetes as well as multiple other medical issues. I would see her baselin e is about 1.5, on admission was higher at 2.6, but since then it is trending down nicely and is alre jassi down to 1.7. She appears to be better hemodynamically with good blood pressure and decent oxygen saturation. I agree with holding Lasix for maybe today, but we should restart by tomorrow. If she gets into more shortness of breath, it is reasonable to use Lasix even today. Avoid nephrotoxic agen t. Daily laboratories. Input/output charting. No further workup is needed for etiology of acute re nal failure as it is already improving. Job ID: [id number]
[2021-09-21] MEDS ORDERED: clonazePAM 0.5 MG TAB PO STA ×2 (12:31→19:18)
--- NOTE | 2021-09-21 12:42 | Pharmacy Report ---
Pharmacy Glycemic Short Note 2 - Date of Service September 21, 2021 - Glycemic Short BSG Results (Last 24 hours): 09/20/21 09/20/21 09/20/21 13:07 13:42 18:35 Glucose 152 H POC Glucose 140 H 131 H 09/20/21 09/21/21 09/21/21 20:42 00:14 05:51 Glucose POC Glucose 198 H 124 H 119 H 09/21/21 09/21/21 09/21/21 07:02 07:43 11:13 Glucose 127 H POC Glucose 136 H 184 H OUTPATIENT ANTIDIABETIC REGIMEN: * Trulicity (Dulaglutide) SQ Weekly * Tresiba (Insulin degludec) 60 units SQ HS * NovoLog 40 units SQ with meals + SSI * A1c = 7.3% on 09/21/21 ASSESSMENT: 09/21: * Patient relatively well controlled over the past 24 hours. Although fasting BSG was within goal today will increase evening lantus dose as patient is tolerating a diet at this time. * Today's lunch BSG slightly elevated however this may be due to a small clear liquid breakfast that was not covered. Will monitor trend. 09/20 * 66yo T2DM female with unknown degree of outpatient control as A1c is outdated. Will re-order for tomorrow w/ AM labs * Pt is maintained on SQ GLP1 + moderately high SQ basal bolus insulin regimen. * Outpatient basal insulin is Tresiba (Insulin degludec) which is non-formulary; will sub to Lantus for inpatient use * Pt NPO- will reduce outpatient dosing of basal and set a weight based NovoLog scale PLAN FOR INPATIENT GLYCEMIC CONTROL: * Hold outpatient diabetes medications * Basal insulin * Lantus 55 units SQ HS * Bolus insulin * NovoLog per scale ACHS or Q6hrs while NPO * Goal Range: Low 110 mg/dL - High 140 mg/dL * Correction Factor: 10 mg/dL/unit * Nutritional / Prandial insulin per carb ratio of 1 unit per 3 grams CHO consumed PLAN FOR DISCHARGE: * TBD
[2021-09-21] MEDS ORDERED: MAGNESIUM SULFATE / D5W 1 GM/100 ML BAG IV ONE (13:09)
[2021-09-21] MEDS: rOPINIRole HCL 2 MG TABLET PO SCH (20:10)
[2021-09-21] MEDS: PANTOprazole 40 MG TAB PO SCH (20:10)
[2021-09-21] MEDS: NORTRIPTYLINE HCL 25 MG CAP PO SCH (20:11)
[2021-09-21] MEDS: MAGNESIUM OXIDE 400 MG TAB PO SCH (20:11)
[2021-09-21] MEDS: INSULIN GLARGINE SOLOSTAR 100 UNITS/ML 3 ML PEN SC SCH (20:27)
[2021-09-21] MEDS: clonazePAM 0.5 MG TAB PO PRN (22:13)
--- NOTE | 2021-09-22 01:33 | Hospitalist Progress Note ---
Date of Service September 21, 2021 Assessment & Plan (1) Acute respiratory failure with hypoxia: (2) Pneumonia: Plan: Pt presents with fever, cough, confusion Meets sirs criteria for sepsis given tachycardia, fever, encephalopathy, WBC minimally elevated, (pt also has elsie and elev. trop.) CXR concerning for bilateral, poss. viral pna CT chest : IMPRESSION: 1. Compared to the previous CT examination, diffuse interstitial fibrotic changes are again seen and essentially unchanged. 2. There is otherwise no acute chest disease on these noncontrast images. 3. The finding seen on the chest radiograph are accentuated by the patient's body habitus. There is no evidence for viral type pneumonitis. Covid, RSV, influenza negative blood cultx - pending in the ED given cefepime, and 1L of NS At home supposed to use 2L of suppl. O2 as needed Currently on 3-4L of O2 will try to wean off O2 sputum cultx ordered procalcitonin negative Cont. w/ ceftriaxone and doxycycline add guaifenesine, flutter valve, incentive spirometry Given CXR findings and elevated troponin, elevated proBNP, concern for poss. pulm. edema/ chf exacerbation obtained chest CT to eval. lung parenchyma more closely and discussed w/ radiologist - per radiologist-not pulm. edema, and findings more c/w pulm. fibrosis (3) ELSIE (acute kidney injury): Plan: ELSIE on CKD stage III baseline Cr about 1.4-1.5 Cr 2.6 on admission received 1L of NS in the ED likely pre-renal, vs. 2/2 infection as Cr improved w/ IVF, holding lasix and Abx, UA also c/w UTI Nephrology consulted UTI - UA c/w UTI - U cultx grows GNB, follow final results - pt with elev. Cr, fever - pt reports hx of recurrent UTIs (w/o dysuria or hematuria, asymptomatic) - cont. Abx, as above (4) Elevated troponin: Plan: Most likely demand ischemia in the setting of acute illness and ELSIE on CKD Pt reports no chest pain received ASA in ED troponin peaked at 0.3 echo obtained - no wall motion abnormality, EF 60-65% Pt remains chest pain free (pt has hx of HIT so can not use heparin if needed anticoag.) (5) Sleep apnea: Plan: Cont. CPAP Morbid obesity, BMI 58 - counselling provided and referral to dietitian recommended Chronic conditions: Hypothyroidism- cont. home levothyroxine Fibromyalgia, chronic back pain, RLS - resume home meds as appropriate DM type 2- current A1c 7.3% -hold home meds and cont. w/ insulin while inpt - glycemic pharmacy DVT ppx: SCDs, hx of HIT therefore avoid heparin products Code: Full Admission and Anticipated Discharge Date Admission Date: September 20, 2021 Subjective Pt is currently laying in bed in NAD, says she is feeling much better She was on 4L of suppl. O2 this AM, when down to 2L pt desaturates to 87-88% with any minimal movement I then increased O2 to 3L and notified pt's RN Pt denies any fever, chills, chest pain. Cough is minimal. Says she has no dysuria but reports hx of recurrent asymptomatic UTIs. No abd. pain, n/v Review of Systems Review of Systems: All systems reviewed & are unremarkable except as noted in Subjective Physical Exam Physical Exam: Constitutional:L + morbidly obese (F in NAD, on supp l. O2) Eyes: PERRL, EOMI, conju nctivae normal, an icteric sclerae ENMT: external ear and n ose normal, oropha rynx normal Neck: thick, supple Respiratory: normal respiratory effort, diminishe d breath sounds, m ild diff. rhonchi, no wheezing or cr ackles noted, does not use accessory muscles Cardiovascular:L Rate/Rhythm:RRR H eart Sounds: + mur mur (soft syst.) Chest (Breasts): Chest: normal insp ection of chest Gastrointestinal ( Abdomen): normal bowel sound s, soft, nontender , obese Musculoskeletal: moves extremities, no significant LE edema Skin: no rashes, warm an d dry Neurologic: PERRL, EOMI, no fa ce palsy, no dysar thria, moves extre mities Psychiatric: A+Ox3, euthymic af fect Genitourinary: no CVA tenderness Lymphatic: + minimal pedal e luisito Results & Data Results & Data ([facility]) Vital Signs (Past 12 Hours) Vital Signs Temp Pulse Resp BP Pulse Ox 09/22/21 00:17 36.7 C 90 20 122/62 92 09/21/21 20:59 37.1 C 94 H 25 H 118/78 93 09/21/21 15:13 36.9 C 90 21 133/66 91 Laboratory Results 09/21/21 09/21/21 09/21/21 Range/Units 20:17 16:13 11:13 WBC (4.8-10.8) K/uL RBC (4.2-5.4) M/uL Hgb (12.0-16.0) g/dL Hct (37-47) % MCV (80-100) fL MCH (25-34) pg MCHC (32-36) g/dL RDW Std Deviation (36.4-46.3) fL RDW Coeff of Adolfo (11.5-14.5) % Plt Count (130-400) K/uL MPV (7.4-10.4) fL Sodium (136-145) mmol/L Potassium (3.5-5.1) mmol/L Chloride (98-107) mmol/L Carbon Dioxide (21-32) mmol/L Anion Gap (3-11) BUN (7-18) mg/dl Creatinine (0.6-1.2) mg/dl Est Cr Clr Drug Dosing ml/min Est GFR ( Amer) ml/min Est GFR (Non-Af Amer) ml/min BUN/Creatinine Ratio (10-20) Glucose (70-99) mg/dl POC Glucose 144 H 113 H 184 H (70-99) mg/dl Estimat Average Glucose mg/dl Hemoglobin A1c (4.5-5.6) % Calcium (8.5-10.1) mg/dl Phosphorus (2.5-4.9) mg/dl Magnesium (1.8-2.4) mg/dl 09/21/21 09/21/21 09/21/21 Range/Units 07:43 07:02 07:02 WBC 10.54 (4.8-10.8) K/uL RBC 3.85 L (4.2-5.4) M/uL Hgb 12.0 (12.0-16.0) g/dL Hct 39.5 (37-47) % MCV 102.6 H (80-100) fL MCH 31.2 (25-34) pg MCHC 30.4 L (32-36) g/dL RDW Std Deviation 58.9 H (36.4-46.3) fL RDW Coeff of Adolfo 16.0 H (11.5-14.5) % Plt Count 346 (130-400) K/uL MPV 9.7 (7.4-10.4) fL Sodium 138 (136-145) mmol/L Potassium 3.7 (3.5-5.1) mmol/L Chloride 103 (98-107) mmol/L Carbon Dioxide 29 (21-32) mmol/L Anion Gap 6.0 (3-11) BUN 25 H (7-18) mg/dl Creatinine 1.78 H D (0.6-1.2) mg/dl Est Cr Clr Drug Dosing 47.5 ml/min Est GFR ( Amer) 33.9 ml/min Est GFR (Non-Af Amer) 29.2 ml/min BUN/Creatinine Ratio 14.0 (10-20) Glucose 127 H (70-99) mg/dl POC Glucose 136 H (70-99) mg/dl Estimat Average Glucose mg/dl Hemoglobin A1c (4.5-5.6) % Calcium 8.4 L (8.5-10.1) mg/dl Phosphorus 3.0 (2.5-4.9) mg/dl Magnesium 1.6 L (1.8-2.4) mg/dl 09/21/21 09/21/21 Range/Units 06:58 05:51 WBC (4.8-10.8) K/uL RBC (4.2-5.4) M/uL Hgb (12.0-16.0) g/dL Hct (37-47) % MCV (80-100) fL MCH (25-34) pg MCHC (32-36) g/dL RDW Std Deviation (36.4-46.3) fL RDW Coeff of Adolfo (11.5-14.5) % Plt Count (130-400) K/uL MPV (7.4-10.4) fL Sodium (136-145) mmol/L Potassium (3.5-5.1) mmol/L Chloride (98-107) mmol/L Carbon Dioxide (21-32) mmol/L Anion Gap (3-11) BUN (7-18) mg/dl Creatinine (0.6-1.2) mg/dl Est Cr Clr Drug Dosing ml/min Est GFR ( Amer) ml/min Est GFR (Non-Af Amer) ml/min BUN/Creatinine Ratio (10-20) Glucose (70-99) mg/dl POC Glucose 119 H (70-99) mg/dl Estimat Average Glucose 163 mg/dl Hemoglobin A1c 7.3 H (4.5-5.6) % Calcium (8.5-10.1) mg/dl Phosphorus (2.5-4.9) mg/dl Magnesium (1.8-2.4) mg/dl Medications Administered Current Inpatient Medications Acetaminophen (Acetaminophen 325 Mg Tab) 650 mg PO Q4H PRN PRN Reason: Pain or Fever Stop: 10/20/21 08:03 Last Admin: 09/21/21 16:39 Dose: 650 mg Documented by: Clonazepam (Clonazepam 0.5 Mg Tab) 0.5 mg PO BID PRN PRN Reason: anxiety Stop: 10/21/21 19:14 Last Admin: 09/21/21 22:13 Dose: 0.5 mg Documented by: Cyclobenzaprine HCl (Cyclobenzaprine Hcl 10 Mg Tab) 10 mg PO HS PRN PRN Reason: Muscle Spasm Stop: 10/21/21 19:14 Doxycycline Hyclate (Doxycycline Hyclate 100 Mg Cap) 100 mg PO BID [facility] Stop: 09/27/21 08:59 Last Admin: 09/21/21 20:12 Dose: 100 mg Documented by: Duloxetine HCl (Duloxetine Hcl 30 Mg Cap) 30 mg PO DAILY [facility] Stop: 10/20/21 10:11 Last Admin: 09/21/21 08:35 Dose: 30 mg Documented by: Duloxetine HCl (Duloxetine Hcl 60 Mg Cap) 60 mg PO QAM [facility] Stop: 10/20/21 10:11 Last Admin: 09/21/21 10:07 Dose: 60 mg Documented by: Guaifenesin (Guaifenesin 600 Mg Tabcr) 600 mg PO Q12 [facility] Stop: 10/20/21 08:59 Last Admin: 09/21/21 20:11 Dose: 600 mg Documented by: Ceftriaxone Sodium 2,000 mg/ (Dextrose) 70 mls @ 100 mls/hr IV Q24H [facility]; Protocol Stop: 09/28/21 08:59 Last Infusion: 09/21/21 11:00 Dose: Infused Documented by: Insulin Aspart (Insulin Aspart Per Unit) 0 units SC ACHS [facility] Stop: 10/21/21 11:29 Last Admin: 09/21/21 20:26 Dose: 5 units Documented by: Insulin Glargine (Insulin Glargine Solostar 100 Units/Ml 3 Ml Pen) 55 units SC [facility]; Protocol Stop: 10/21/21 20:59 Last Admin: 09/21/21 20:27 Dose: 55 units Documented by: Levothyroxine Sodium (Levothyroxine Sodium 200 Mcg Tablet) [facility] Stop: 10/20/21 10:11 Last Admin: 09/21/21 05:47 Dose: 200 mcg Documented by: Levothyroxine Sodium (Levothyroxine Sodium 50 Mcg Tablet) [facility] Stop: 10/20/21 10:11 Last Admin: 09/21/21 05:47 Dose: 50 mcg Documented by: Magnesium Oxide (Magnesium Oxide 400 Mg Tab) 400 mg PO BID [facility] Stop: 10/21/21 20:59 Last Admin: 09/21/21 20:11 Dose: 400 mg Documented by: Miscellaneous Information (Pharmacy Glycemic Mgmt Consult) 1 ea N/A UD PRN PRN Reason: Consult Stop: 10/20/21 08:14 Nortriptyline HCl (Nortriptyline Hcl 25 Mg Cap) 50 mg PO [facility] Stop: 10/20/21 20:59 Last Admin: 09/21/21 20:11 Dose: 50 mg Documented by: Oxymetazoline HCl (Oxymetazoline 0.05% 30 Ml Btl) 2 sprays NA BID [facility] Stop: 09/24/21 00:44 Last Admin: 09/21/21 20:11 Dose: 2 sprays Documented by: Pantoprazole Sodium (Pantoprazole 40 Mg Tab) 40 mg PO [facility]; Protocol Stop: 10/20/21 20:59 Last Admin: 09/21/21 20:10 Dose: 40 mg Documented by: Ropinirole HCl (Ropinirole Hcl 2 Mg Tablet) 2 mg PO [facility] Stop: 10/21/21 20:59 Last Admin: 09/21/21 20:10 Dose: 2 mg Documented by: (1) Pneumonia Laterality: bilateral Lung location: unspecified part of lung Pneumonia type: due to unspecified organism Qualified Code(s): J18.9 - Pneumonia, unspecified organism
[2021-09-22] MEDS: ACETAMINOPHEN 325 MG TAB PO PRN ×3 (02:01→23:30)
[2021-09-22] MEDS: LEVOTHYROXINE SODIUM 200 MCG TABLET PO SCH (05:31)
[2021-09-22] MEDS: LEVOTHYROXINE SODIUM 50 MCG TABLET PO SCH (05:32)
[2021-09-22 06:35] LABS: Hematocrit (blood only) 39.7 % (37-47); Hemoglobin 12.2 g/dL (12.0-16.0); Mean Corpuscular Hemoglobin 30.9 pg (25-34); Mean Corpuscular Hgb Conc 30.7 g/dL (32-36); Mean Corpuscular Volume 100.5 fL (80-100); Mean Platelet Volume 9.9 fL (7.4-10.4); Platelet Count 354 K/uL (130-400); RDW Coefficient of Variation 15.6 % (11.5-14.5); RDW Standard Deviation 55.9 fL (36.4-46.3); Red Blood Count 3.95 M/uL (4.2-5.4); White Blood Count 9.68 K/uL (4.8-10.8)
[2021-09-22 07:01] LABS: BUN Creatinine Ratio 14.6 (10-20); Calcium 8.3 mg/dl (8.5-10.1); Creatinine Clr Calc Pharmacy 58.4 ml/min; Est GFR (Non-African American) 37.1 ml/min; Magnesium 1.8 mg/dl (1.8-2.4); Phosphorus 2.9 mg/dl (2.5-4.9); Potassium 3.8 mmol/L (3.5-5.1)
[2021-09-22] MEDS: MAGNESIUM OXIDE 400 MG TAB PO SCH ×2 (10:20→20:55)
[2021-09-22] MEDS: FUROSEMIDE 20 MG TAB PO SCH ×2 (10:20→17:12)
[2021-09-22] MEDS: guaiFENesin 600 MG TABCR PO SCH (10:20)
[2021-09-22] MEDS: DULoxetine HCL 30 MG CAP PO SCH (10:20)
[2021-09-22] MEDS: DULoxetine HCL 60 MG CAP PO SCH (10:21)
[2021-09-22] MEDS: DOXYCYCLINE HYCLATE 100 MG CAP PO SCH (10:21)
[2021-09-22] MEDS: clonazePAM 0.5 MG TAB PO PRN ×2 (10:31→21:03)
[2021-09-22] MEDS: INSULIN ASPART PER UNIT SC SCH ×4 (10:34→20:53)
[2021-09-22] MEDS: OXYMETAZOLINE 0.05% 30 ML BTL SCH ×2 (10:35→20:54)
[2021-09-22] MEDS: cefTRIAXone SODIUM 2,000 MG in DEXTROSE 5% 50 ML IV SCH (10:37)
--- NOTE | 2021-09-22 12:40 | Pharmacy Report ---
Pharmacy Glycemic Short Note 2 - Date of Service September 22, 2021 - Glycemic Short BSG Results (Last 24 hours): 09/21/21 09/21/21 09/22/21 16:13 20:17 06:08 Glucose 153 H POC Glucose 113 H 144 H 09/22/21 09/22/21 07:23 11:14 Glucose POC Glucose 141 H 229 H OUTPATIENT ANTIDIABETIC REGIMEN: * Trulicity (Dulaglutide) SQ Weekly * Tresiba (Insulin degludec) 60 units SQ HS * NovoLog 40 units SQ with meals + SSI * A1c = 7.3% on 09/21/21 ASSESSMENT: 09/22: * BSGs well controlled over last 24 hrs * Fasting BSG 141 today with 55 units basal on board, will continue the same for now * Post-prandial BSGs at goal or near goal yesterday w/ current CR, will continue for now. Today's pre-lunch hyperglycemia likely due to late admin of AM Novolog following meal. BSG was checked less than 1 hr after Novolog admin. 09/21: * Patient relatively well controlled over the past 24 hours. Although fasting BSG was within goal today will increase evening lantus dose as patient is tolerating a diet at this time. * Today's lunch BSG slightly elevated however this may be due to a small clear liquid breakfast that was not covered. Will monitor trend. 09/20 * 66yo T2DM female with unknown degree of outpatient control as A1c is outdated. Will re-order for tomorrow w/ AM labs * Pt is maintained on SQ GLP1 + moderately high SQ basal bolus insulin regimen. * Outpatient basal insulin is Tresiba (Insulin degludec) which is non-formulary; will sub to Lantus for inpatient use * Pt NPO- will reduce outpatient dosing of basal and set a weight based NovoLog scale PLAN FOR INPATIENT GLYCEMIC CONTROL: * Hold outpatient diabetes medications * Basal insulin * Lantus 55 units SQ HS * Bolus insulin * NovoLog per scale ACHS or Q6hrs while NPO * Goal Range: Low 110 mg/dL - High 140 mg/dL * Correction Factor: 10 mg/dL/unit * Nutritional / Prandial insulin per carb ratio of 1 unit per 3 grams CHO consumed PLAN FOR DISCHARGE: * TBD
[2021-09-22] MEDS: ONDANSETRON INJ 2 MG/ML 2 ML VIAL IV PRN ×2 (12:45→21:03)
--- NOTE | 2021-09-22 16:38 | Hospitalist Progress Note ---
Date of Service September 22, 2021 Assessment & Plan (1) Acute respiratory failure with hypoxia: (2) Sepsis: (3) Pneumonia: Plan: Pt presents with fever, cough, confusion Meets sirs criteria for sepsis given tachycardia, fever, encephalopathy, WBC minimally elevated, (pt also has elsie and elev. trop.) Covid, RSV, influenza negative blood cultx - negatve in the ED given cefepime, and 1L of NS At home supposed to use 2L of suppl. O2 continuously Currently on 3LPM will try to wean O2 as tolerated but she is around her baseline and this is expected with a pneumonia. Cont. w/ ceftriaxone and doxycycline-->change to cefdinir and azithromycin given the reaction to doxycycline (also not documented but states she cannot tolerate PCN either) cont pulm toilet efforts. Given CXR findings and elevated troponin, elevated proBNP, concern for poss. pulm. edema/ chf exacerbation obtained chest CT to eval. lung parenchyma more closely and discussed w/ radiologist - per radiologist-not pulm. edema, and findings more c/w pulm. fibrosis outpatient pulm follow-up recommended. She is already under the care of [facility] Pulmonology (4) UTI (urinary tract infection): Plan: Klebsiella in urine, cont abx as above. Pt reports hx of recurrent UTIs (w/o dysuria or hematuria, asymptomatic) (5) ELSIE (acute kidney injury): Plan: ELSIE on CKD stage III baseline Cr about 1.4-1.5 Cr 2.6 on admission Now improved to baseline. (6) Elevated troponin: Plan: Most likely demand ischemia in the setting of acute illness and ELSIE on CKD Pt reports no chest pain received ASA in ED troponin peaked at 0.3 echo obtained - no wall motion abnormality, EF 60-65% Pt remains chest pain free (pt has hx of HIT so can not use heparin if needed anticoag.) (7) Sleep apnea: Plan: Cont. CPAP (8) Morbid obesity: (9) Diabetes mellitus, type II: Plan: chronic, stable. Currently euglycemic, current A1c 7.3% -hold home meds and cont. w/ insulin while inpt - glycemic pharmacy consulted. (10) DVT prophylaxis: Plan: DVT ppx: SCDs, hx of HIT therefore avoid heparin products Code: Full Dispo-to home in 1-2 days. DO Nga Fairchild Hospitalist Admission and Anticipated Discharge Date Admission Date: September 20, 2021 Subjective 66 yo F presents with fever cough and confusion. Currently being treated for pneumonia and UTI She denies dysuria or other UTI symptoms, but states that UTIs are a recurrent issue for her She reports her breathing is back to baseline and she is on her baseline oxygen supplementation She denies any chest pain and has remained afebrile She is tolerating PO Some nausea with ?doxy this am, better with Zofran Review of Systems Review of Systems: All systems were reviewed and negative except as indicated above. Physical Exam Physical Exam: CONSTITUTIONAL: obese, vitals as above, generally well- appearing, NAD EYES: normal conjunctivae, no scleral icterus ENT: external ear and nose normal, MMM NECK: trachea midline RESPIRATORY: clear to auscultation bilaterally, no crackles, rales or wheezes, normal respiratory effort CARDIOVASCULAR: regular rate and rhythm, S1 and 2 heard without murmurs, gallops or rubs, no JVD, no peripheral edema CHEST: inspection of chest was normal GASTROINTESTINAL: soft, nontender, ND, very protuberant, no guarding MUSCULOSKELETAL: moves all extremities equally, head is normocephalic and atraumatic, neck supple, normal palpation of chest wall without tenderness SKIN: warm and dry NEUROLOGIC: CN 2-12 grossly intact, no sensory deficit, normal cognition, normal speech, no tremor. No gross focal deficits PSYCHIATRIC: alert cooperative and oriented to person, place and time. Euthymic mood, makes good eye contact, language grossly intact, recent and remote memory grossly intact. Results & Data Results & Data ([facility]) Vital Signs (Past 12 Hours) Vital Signs Temp Pulse Pulse Resp BP Pulse Ox 09/22/21 12:18 90 09/22/21 12:07 36.6 C 95 H 20 135/63 93 09/22/21 07:52 36.7 C 90 20 146/60 H 91 Laboratory Results Short CBC 09/22/21 Range/Units 06:08 WBC 9.68 (4.8-10.8) K/uL Hgb 12.2 (12.0-16.0) g/dL Hct 39.7 (37-47) % Plt Count 354 (130-400) K/uL BMP 09/22/21 06:08 Sodium 140 Potassium 3.8 Chloride 104 Carbon Dioxide 29 BUN 21 H Creatinine 1.46 H D Glucose 153 H Calcium 8.3 L Medications Administered Current Inpatient Medications Acetaminophen (Acetaminophen 325 Mg Tab) 650 mg PO Q4H PRN PRN Reason: Pain or Fever Stop: 10/20/21 08:03 Last Admin: 09/22/21 02:01 Dose: 650 mg Documented by: Clonazepam (Clonazepam 0.5 Mg Tab) 0.5 mg PO BID PRN PRN Reason: anxiety Stop: 10/21/21 19:14 Last Admin: 09/22/21 10:31 Dose: 0.5 mg Documented by: Cyclobenzaprine HCl (Cyclobenzaprine Hcl 10 Mg Tab) 10 mg PO HS PRN PRN Reason: Muscle Spasm Stop: 10/21/21 19:14 Doxycycline Hyclate (Doxycycline Hyclate 100 Mg Cap) 100 mg PO BID [facility] Stop: 09/27/21 08:59 Last Admin: 09/22/21 10:21 Dose: 100 mg Documented by: Duloxetine HCl (Duloxetine Hcl 30 Mg Cap) 30 mg PO DAILY [facility] Stop: 10/20/21 10:11 Last Admin: 09/22/21 10:20 Dose: 30 mg Documented by: Duloxetine HCl (Duloxetine Hcl 60 Mg Cap) 60 mg PO QAM [facility] Stop: 10/20/21 10:11 Last Admin: 09/22/21 10:21 Dose: 60 mg Documented by: Furosemide (Furosemide 20 Mg Tab) 20 mg PO BID17 [facility] Stop: 10/22/21 08:59 Last Admin: 09/22/21 10:20 Dose: 20 mg Documented by: Guaifenesin (Guaifenesin 600 Mg Tabcr) 600 mg PO Q12 [facility] Stop: 10/20/21 08:59 Last Admin: 09/22/21 10:20 Dose: 600 mg Documented by: Ceftriaxone Sodium 2,000 mg/ (Dextrose) 70 mls @ 100 mls/hr IV Q24H [facility]; Protocol Stop: 09/28/21 08:59 Last Infusion: 09/22/21 11:37 Dose: Infused Documented by: Insulin Aspart (Insulin Aspart Per Unit) 0 units SC ACHS [facility] Stop: 10/21/21 11:29 Last Admin: 09/22/21 12:45 Dose: 19 units Documented by: Insulin Glargine (Insulin Glargine Solostar 100 Units/Ml 3 Ml Pen) 55 units SC [facility]; Protocol Stop: 10/21/21 20:59 Last Admin: 09/21/21 20:27 Dose: 55 units Documented by: Levothyroxine Sodium ([facility]othyroxine Sodium 200 Mcg Tablet) [facility] Stop: 10/20/21 10:11 Last Admin: 09/22/21 05:31 Dose: 200 mcg Documented by: Levothyroxine Sodium (Levothyroxine Sodium 50 Mcg Tablet) [facility] Stop: 10/20/21 10:11 Last Admin: 09/22/21 05:32 Dose: 50 mcg Documented by: Magnesium Oxide (Magnesium Oxide 400 Mg Tab) 400 mg PO BID [facility] Stop: 10/21/21 20:59 Last Admin: 09/22/21 10:20 Dose: 400 mg Documented by: Miscellaneous Information (Pharmacy Glycemic Mgmt Consult) 1 ea N/A UD PRN PRN Reason: Consult Stop: 10/20/21 08:14 Nortriptyline HCl (Nortriptyline Hcl 25 Mg Cap) 50 mg PO [facility] Stop: 10/20/21 20:59 Last Admin: 09/21/21 20:11 Dose: 50 mg Documented by: Ondansetron HCl (Ondansetron Inj 2 Mg/Ml 2 Ml Vial) 4 mg IV Q8H PRN PRN Reason: Nausea And Vomiting Stop: 10/22/21 11:48 Last Admin: 09/22/21 12:45 Dose: 4 mg Documented by: Oxymetazoline HCl (Oxymetazoline 0.05% 30 Ml Btl) 2 sprays NA BID [facility] Stop: 09/24/21 00:44 Last Admin: 09/22/21 10:35 Dose: 2 sprays Documented by: Pantoprazole Sodium (Pantoprazole 40 Mg Tab) 40 mg PO [facility]; Protocol Stop: 10/20/21 20:59 Last Admin: 09/21/21 20:10 Dose: 40 mg Documented by: Ropinirole HCl (Ropinirole Hcl 2 Mg Tablet) 2 mg PO [facility] Stop: 10/21/21 20:59 Last Admin: 09/21/21 20:10 Dose: 2 mg Documented by: (1) Pneumonia Laterality: bilateral Lung location: unspecified part of lung Pneumonia type: due to unspecified organism Qualified Code(s): J18.9 - Pneumonia, unspecified organism
[2021-09-22] MEDS ORDERED: guaiFENesin 600 MG TABCR PO PRN (17:49)
[2021-09-22] MEDS: NORTRIPTYLINE HCL 25 MG CAP PO SCH (20:54)
[2021-09-22] MEDS: PANTOprazole 40 MG TAB PO SCH (20:54)
[2021-09-22] MEDS: rOPINIRole HCL 2 MG TABLET PO SCH (20:54)
[2021-09-22] MEDS: CEFDINIR 300 MG CAP PO SCH (20:55)
[2021-09-22] MEDS: INSULIN GLARGINE SOLOSTAR 100 UNITS/ML 3 ML PEN SC SCH (20:56)
[2021-09-22] MEDS: CYCLOBENZAPRINE HCL 10 MG TAB PO PRN (21:45)
[2021-09-22] MEDS ORDERED: DOCUSATE SODIUM 100 MG CAP PO PRN (22:44)
[2021-09-22] MEDS ORDERED: DICYCLOMINE HCL 20 MG TAB PO PRN (22:44)
[2021-09-22] MEDS: GABAPENTIN 300 MG CAP PO SCH (23:30)
[2021-09-22] MEDS: LIDOCAINE 5% 1 PATCH TD SCH (23:31)
[2021-09-23 04:46] LABS: Hematocrit (blood only) 38.3 % (37-47); Hemoglobin 11.8 g/dL (12.0-16.0); Mean Corpuscular Hemoglobin 30.8 pg (25-34); Mean Corpuscular Hgb Conc 30.8 g/dL (32-36); Mean Platelet Volume 9.6 fL (7.4-10.4); Platelet Count 338 K/uL (130-400); RDW Coefficient of Variation 15.6 % (11.5-14.5); RDW Standard Deviation 55.6 fL (36.4-46.3); Red Blood Count 3.83 M/uL (4.2-5.4); White Blood Count 8.21 K/uL (4.8-10.8)
[2021-09-23 05:19] LABS: BUN Creatinine Ratio 13.3 (10-20); Calcium 8.8 mg/dl (8.5-10.1); Creatinine Clr Calc Pharmacy 69.4 ml/min; Est GFR (African American) 52.9 ml/min; Est GFR (Non-African American) 45.7 ml/min; Magnesium 1.8 mg/dl (1.8-2.4); Phosphorus 2.9 mg/dl (2.5-4.9); Potassium 3.6 mmol/L (3.5-5.1)
[2021-09-23] MEDS: LEVOTHYROXINE SODIUM 50 MCG TABLET PO SCH (06:18)
[2021-09-23] MEDS: LEVOTHYROXINE SODIUM 200 MCG TABLET PO SCH (06:18)
[2021-09-23] MEDS: INSULIN ASPART PER UNIT SC SCH ×4 (08:08→20:39)
[2021-09-23] MEDS: CHOLECALCIFEROL 1,000 UNITS 25 MCG TAB PO SCH (08:09)
[2021-09-23] MEDS: CEFDINIR 300 MG CAP PO SCH ×2 (08:09→20:37)
[2021-09-23] MEDS: AZITHROMYCIN 250 MG TAB PO SCH (08:09)
[2021-09-23] MEDS: DULoxetine HCL 30 MG CAP PO SCH (08:10)
[2021-09-23] MEDS: COLCHICINE 0.6 MG TAB PO SCH (08:10)
[2021-09-23] MEDS: FUROSEMIDE 20 MG TAB PO SCH ×2 (08:11→17:17)
[2021-09-23] MEDS: GABAPENTIN 300 MG CAP PO SCH ×3 (08:11→20:37)
[2021-09-23] MEDS: DULoxetine HCL 60 MG CAP PO SCH (08:11)
[2021-09-23] MEDS: POTASSIUM CHLORIDE 10 MEQ TABCR PO SCH (08:12)
[2021-09-23] MEDS: OXYMETAZOLINE 0.05% 30 ML BTL SCH ×2 (08:12→20:38)
[2021-09-23] MEDS: MAGNESIUM OXIDE 400 MG TAB PO SCH ×2 (08:12→20:37)
[2021-09-23] MEDS: clonazePAM 0.5 MG TAB PO PRN ×2 (08:17→20:37)
--- NOTE | 2021-09-23 11:57 | Pharmacy Report ---
Pharmacy Glycemic Short Note 2 - Date of Service September 23, 2021 - Glycemic Short BSG Results (Last 24 hours): 09/22/21 09/22/21 09/23/21 16:19 20:39 04:34 Glucose 117 H POC Glucose 79 135 H 09/23/21 09/23/21 07:18 11:04 Glucose POC Glucose 99 109 H OUTPATIENT ANTIDIABETIC REGIMEN: * Trulicity (Dulaglutide) SQ Weekly * Tresiba (Insulin degludec) 60 units SQ HS * NovoLog 40 units SQ with meals + SSI * A1c = 7.3% on 09/21/21 ASSESSMENT: 09/23: * BSGs well controlled over last 24 hrs * Fasting BSG 99 this AM w/ 55 units Lantus on board. Will decrease dose ~20% as 2 BSGs less than 100 in last 24 hrs and fasting BSG may continue to drop as we approach steady state w/ higher dose. * Post-prandial BSGs well controlled yesterday (Prelunch elevation explainable yesterday). Will reduce prandial and correctional insulin doses slightly given downward trend in BSGs and concern for basal heavy regimen. 09/22: * BSGs well controlled over last 24 hrs * Fasting BSG 141 today with 55 units basal on board, will continue the same for now * Post-prandial BSGs at goal or near goal yesterday w/ current CR, will continue for now. Today's pre-lunch hyperglycemia likely due to late admin of AM Novolog following meal. BSG was checked less than 1 hr after Novolog admin. 09/21: * Patient relatively well controlled over the past 24 hours. Although fasting BSG was within goal today will increase evening lantus dose as patient is tolerating a diet at this time. * Today's lunch BSG slightly elevated however this may be due to a small clear liquid breakfast that was not covered. Will monitor trend. 09/20 * 66yo T2DM female with unknown degree of outpatient control as A1c is outdated. Will re-order for tomorrow w/ AM labs * Pt is maintained on SQ GLP1 + moderately high SQ basal bolus insulin regimen. * Outpatient basal insulin is Tresiba (Insulin degludec) which is non-formulary; will sub to Lantus for inpatient use * Pt NPO- will reduce outpatient dosing of basal and set a weight based NovoLog scale PLAN FOR INPATIENT GLYCEMIC CONTROL: * Hold outpatient diabetes medications * Basal insulin * Lantus 45 units SQ HS * Bolus insulin * NovoLog per scale ACHS or Q6hrs while NPO * Goal Range: Low 110 mg/dL - High 140 mg/dL * Correction Factor: 12 mg/dL/unit * Nutritional / Prandial insulin per carb ratio of 1 unit per 4 grams CHO consumed PLAN FOR DISCHARGE: * Renal fxn has improved. Would recommend resuming patient's outpt regimen of Tresiba + Novolog and Trulicity on discharge if no contraindications present, patient not experiencing hypoglycemia w/ regimen, and patient able to resume normal diet/activity levels. Recommend close f/u with PCP/Endocrinology to monitor and adjust medication regimen. A1c 7.3% this admission is at goal
--- NOTE | 2021-09-23 12:13 | Discharge Summary ---
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 Pt reports not feeling well, and "achey" for the past couple of days. Today she also noted to be more confused, "walking into the poe" and "not making sense". She noted fever and therefore presented to ER for further evaluation. Pt lives alone. Says she uses 2L of suppl. O2 with CPAP at home and that she is supposed to use 2L during the day as needed however she usually does not use it during the day. Cough is occasional with some yellow sputum. She does not weigh herself regularly but reports no significant weight gain or weight loss. Denies any edema in her legs or abdominal girth. Denies having any chest pain, or abdominal pain at home. Also denies n/v, dysuria, hematuria. In the ED she was found hypoxic in 80s on 2L of suppl. O2, currently pt is on 4L. She was also found to have elevated Cr at 2.6, elevated troponin. CXR concerning for pneumonia. Received 1L of NS and cefepime in the ED. Discharge Exam CONSTITUTIONAL: obese, vitals as above, generally well-appearing, NAD EYES: normal conjunctivae, no scleral icterus ENT: external ear and nose normal, MMM NECK: trachea midline RESPIRATORY: clear to auscultation bilaterally, no crackles, rales or wheezes, normal respiratory effort CARDIOVASCULAR: regular rate and rhythm, S1 and 2 heard without murmurs, gallops or rubs, no JVD, no peripheral edema CHEST: inspection of chest was normal GASTROINTESTINAL: soft, nontender, ND, very protuberant, no guarding MUSCULOSKELETAL: moves all extremities equally, head is normocephalic and atra umatic, neck supple, normal palpation of chest wall without tenderness SKIN: warm and dry NEUROLOGIC: CN 2-12 grossly intact, no sensory deficit, normal cognition, normal speech, no tremor. No gross focal deficits PSYCHIATRIC: alert cooperative and oriented to person, place and time. Euthymic mood, makes good eye contact, language grossly intact, recent and remote memory grossly intact. Discharge Data Allergies Allergy/AdvReac Type Severity Reaction Status Date / Time morphine Allergy Severe VIOLENT Verified 09/20/21 07:34 REACTION-"ALMOST " SWELLING tetanus toxoid, adsorbed Allergy Intermediate PASSED OUT Verified 09/20/21 07:34 AND GOT SICK WHEN A CHILD bupropion [From Wellbutrin] AdvReac Intermediate Recurrent Verified 09/20/21 09:25 falls as per patient codeine AdvReac Intermediate Hallucinati Verified 09/20/21 07:34 ons empagliflozin AdvReac Intermediate YEAST Verified 09/20/21 07:34 [From Jardiance] INFECTIONS heparin AdvReac Intermediate HIT; FLUID Verified 09/20/21 07:34 IN LUNGS hydrocodone [From Vicodin] AdvReac Intermediate sleepiness Verified 09/20/21 07:34 Consultations 09/20/21 07:41 ED Decision to Admit Stat 09/20/21 15:49 Consult Nephrology Routine Ordered Studies 09/20/21 10:12 CT chest diagnostic wo con Urgent Hospital Course (1) Acute respiratory failure with hypoxia: (2) Sepsis: (3) Pneumonia: Pt presents with fever, cough, confusion Meets sirs criteria for sepsis given tachycardia, fever, encephalopathy, WBC minimally elevated, (pt also has elsie and elev. trop.) Covid, RSV, influenza negative blood cultx - negatve in the ED given cefepime, and 1L of NS At home supposed to use 2L of suppl. O2 continuously Currently on 3LPM will try to wean O2 as tolerated but she is around her baseline and this is expected with a pneumonia. Cont. w/ ceftriaxone and doxycycline-->change to cefdinir and azithromycin given the reaction to doxycycline (also not documented but states she cannot tolerate PCN either) cont pulm toilet efforts. Given CXR findings and elevated troponin, elevated proBNP, concern for poss. pulm. edema/ chf exacerbation obtained chest CT to eval. lung parenchyma more closely and discussed w/ radiologist - per radiologist-not pulm. edema, and findings more c/w pulm. fibrosis outpatient pulm follow-up recommended. She is already under the care of [facility] Pulmonology (4) UTI (urinary tract infection): Klebsiella in urine, cont abx as above. Pt reports hx of recurrent UTIs (w/o dysuria or hematuria, asymptomatic) (5) ELSIE (acute kidney injury): ELSIE on CKD stage III baseline Cr about 1.4-1.5 Cr 2.6 on admission Now improved to baseline. (6) Elevated troponin: Most likely demand ischemia in the setting of acute illness and ELSIE on CKD Pt reports no chest pain received ASA in ED troponin peaked at 0.3 echo obtained - no wall motion abnormality, EF 60-65% Pt remains chest pain free (pt has hx of HIT so can not use heparin if needed anticoag.) (7) Sleep apnea: Cont. CPAP (8) Morbid obesity: (9) Diabetes mellitus, type II: chronic, stable. Currently euglycemic, current A1c 7.3% -hold home meds and cont. w/ insulin while inpt - glycemic pharmacy consulted. (10) DVT prophylaxis: DVT ppx: SCDs, hx of HIT therefore avoid heparin products Code: Full Dispo-to home in 1-2 days. Shantell Eli DO [facility] Hospitalist (11) Acute metabolic encephalopathy: resolved Total Time Total Time Spent Total Time Spent (In Minutes): 60 Discharge Plan Discharge Items Reason For Visit: PNA,ELSIE Follow-up/Referrals: Kevin Whiteside DO [Primary Care Provider] - (Date & Time 09/29/2021 11:00 AM Provider Kevin Whiteside DO Department Family [facility] ) Medications and DC Order Prescriptions: New cefdinir 300 mg Capsule 300 mg PO BID Qty: 10 RF: 0 azithromycin 250 mg Tablet 500 mg PO QAM Qty: 4 RF: 0 Continued levothyroxine 200 mcg Tablet 200 mcg PO QAM RF: 0 omeprazole 20 mg Capsule,Delayed Release(Dr/Ec) 20 mg PO HS RF: 0 gabapentin 300 mg Capsule 300 mg PO TID RF: 0 furosemide [Lasix] 40 mg tablet 20 mg PO BID RF: 0 trazodone 50 mg tablet 50 mg PO HS RF: 0 magnesium oxide 400 mg (241.3 mg magnesium) Tablet 400 mg PO DAILY RF: 0 insulin aspart U-100 [Novolog U-100 Insulin aspart] 100 unit/mL solution 0 unit subcut ACHS RF: 0 colchicine 0.6 mg Tablet 0.3 mg PO DAILY RF: 0 duloxetine 30 mg Capsule,Delayed Release(Dr/Ec) 30 mg PO DAILY RF: 0 Tresiba FlexTouch U-100 100 unit/mL (3 mL) Insulin Pen 60 unit SUBCUT HS RF: 0 lidocaine 5 % Adhesive Patch,Medicated 1 patch transdermal HS Qty: 15 RF: 0 cyclobenzaprine 10 mg Tablet 10 mg PO HS PRN (Reason: Muscle Spasm) RF: 0 duloxetine 60 mg capsule,delayed release(DR/EC) 60 mg PO QAM RF: 0 potassium chloride 10 mEq tablet,ER particles/crystals 10 meq PO Q OTHER DAY RF: 0 tramadol 50 mg tablet 50 mg PO Q8H PRN (Reason: Pain) RF: 0 cholecalciferol (vitamin D3) 25 mcg (1,000 unit) Capsule 1,000 unit PO QAM Qty: 30 RF: 1 insulin aspart U-100 [Novolog Flexpen U-100 Insulin] 100 unit/mL (3 mL) insulin pen 40 unit SUBCUT WM RF: 0 Trulicity 3 mg/0.5 mL pen injector 3 mg SUBCUT WK RF: 0 dicyclomine 20 mg tablet 20 mg PO QID PRN (Reason: abdominal pain) RF: 0 nortriptyline [Pamelor] 50 mg capsule 50 mg PO HS RF: 0 levothyroxine 50 mcg tablet 50 mcg PO QAM RF: 0 docusate sodium [Colace] 100 mg capsule 100 mg PO BID PRN (Reason: Constipation) RF: 0 meclizine 12.5 mg tablet 12.5 mg PO TID PRN (Reason: Dizziness) RF: 0 clonazepam 0.5 mg Tablet 0.5 mg PO BID PRN (Reason: anxiety) Qty: 0 RF: 0 ropinirole 2 mg Tablet 2 mg PO HS RF: 0 Krames/Other Patient Handouts: Managing Type 2 Diabetes Admission Data Admit Date/Time: 09/20/21 08:04 Attending Provider: Shantell Eli Admit Provider: Miguel Hampton Primary Care Provider: Kevin Whiteside Other Providers: Juan Gr ; Erik Lenz ; Varsha Duncan
--- NOTE | 2021-09-23 13:42 | Hospitalist Progress Note ---
Date of Service September 23, 2021 Assessment & Plan (1) Acute respiratory failure with hypoxia: (2) Sepsis: (3) Pneumonia: Plan: Pt presents with fever, cough, confusion Meets sirs criteria for sepsis given tachycardia, fever, encephalopathy, WBC minimally elevated, (pt also has elsie and elev. trop.) Covid, RSV, influenza negative blood cultx - negatve in the ED given cefepime, and 1L of NS At home supposed to use 2L of suppl. O2 continuously Currently on 3LPM will try to wean O2 as tolerated but she is around her baseline and this is expected with a pneumonia. Cont. w/ ceftriaxone and doxycycline-->change to cefdinir and azithromycin given the reaction to doxycycline (also not documented but states she cannot tolerate PCN either) cont pulm toilet efforts. Given CXR findings and elevated troponin, elevated proBNP, concern for poss. pulm. edema/ chf exacerbation obtained chest CT to eval. lung parenchyma more closely and discussed w/ radiologist - per radiologist-not pulm. edema, and findings more c/w pulm. fibrosis outpatient pulm follow-up recommended. She is already under the care of [facility] Pulmonology (4) Acute metabolic encephalopathy: Plan: resolved (5) UTI (urinary tract infection): Plan: Klebsiella in urine, cont abx as above. Pt reports hx of recurrent UTIs (w/o dysuria or hematuria, asymptomatic) (6) ELSIE (acute kidney injury): Plan: ELSIE on CKD stage III baseline Cr about 1.4-1.5 Cr 2.6 on admission Now improved to baseline. (7) Elevated troponin: Plan: Most likely demand ischemia in the setting of acute illness and ELSIE on CKD Pt reports no chest pain received ASA in ED troponin peaked at 0.3 echo obtained - no wall motion abnormality, EF 60-65% Pt remains chest pain free (pt has hx of HIT so can not use heparin if needed anticoag.) (8) Sleep apnea: Plan: Cont. CPAP (9) Morbid obesity: (10) Diabetes mellitus, type II: Plan: chronic, stable. Currently euglycemic, current A1c 7.3% -hold home meds and cont. w/ insulin while inpt - glycemic pharmacy consulted. (11) DVT prophylaxis: Plan: DVT ppx: SCDs, hx of HIT therefore avoid heparin products Code: Full Dispo-to home in 1-2 days after further clarification of bacteria on blood culture that came positive. Shantell Eli DO [facility] Hospitalist Admission and Anticipated Discharge Date Admission Date: September 20, 2021 Subjective 66 yo F presents with fever cough and confusion. Currently being treated for pneumonia and UTI She reports her breathing is fine and that she is bored. She denies any chest pain and has remained afebrile She is tolerating PO eager to return home, however, 1 of 4 blood cultures returned positive for GPC in chains. She decided to stay to await speciation Review of Systems Review of Systems: All systems were reviewed and negative except as indicated above. Physical Exam Physical Exam: CONSTITUTIONAL: obese, vitals as above, generally well- appearing, NAD EYES: normal conjunctivae, no scleral icterus ENT: external ear and nose normal, MMM NECK: trachea midline RESPIRATORY: clear to auscultation bilaterally, no crackles, rales or wheezes, normal respiratory effort CARDIOVASCULAR: regular rate and rhythm, S1 and 2 heard without murmurs, gallops or rubs, no JVD, no peripheral edema CHEST: inspection of chest was normal GASTROINTESTINAL: soft, nontender, ND, very protuberant, no guarding MUSCULOSKELETAL: moves all extremities equally, head is normocephalic and atraumatic, neck supple, normal palpation of chest wall without tenderness SKIN: warm and dry NEUROLOGIC: CN 2-12 grossly intact, no sensory deficit, normal cognition, normal speech, no tremor. No gross focal deficits PSYCHIATRIC: alert cooperative and oriented to person, place and time. Euthymic mood, makes good eye contact, language grossly intact, recent and remote memory grossly intact. Results & Data Results & Data ([facility]) Vital Signs (Past 12 Hours) Vital Signs Temp Pulse Resp BP BP Pulse Ox 09/23/21 11:30 36.7 C 85 123/85 95 09/23/21 07:43 36.9 C 89 20 125/63 95 09/23/21 03:21 36.8 C 96 H 18 131/65 93 Laboratory Results Short CBC 09/23/21 Range/Units 04:34 WBC 8.21 (4.8-10.8) K/uL Hgb 11.8 L (12.0-16.0) g/dL Hct 38.3 (37-47) % Plt Count 338 (130-400) K/uL BMP 09/23/21 04:34 Sodium 140 Potassium 3.6 Chloride 105 Carbon Dioxide 30 BUN 16 Creatinine 1.23 H Glucose 117 H Calcium 8.8 Medications Administered Current Inpatient Medications Acetaminophen (Acetaminophen 325 Mg Tab) 650 mg PO Q4H PRN PRN Reason: Pain or Fever Stop: 10/20/21 08:03 Last Admin: 09/22/21 23:30 Dose: 650 mg Documented by: Azithromycin (Azithromycin 250 Mg Tab) 500 mg PO QAM [facility] Stop: 09/26/21 08:59 Last Admin: 09/23/21 08:09 Dose: 500 mg Documented by: Cefdinir (Cefdinir 300 Mg Cap) 300 mg PO BID [facility] Stop: 09/29/21 20:59 Last Admin: 09/23/21 08:09 Dose: 300 mg Documented by: Clonazepam (Clonazepam 0.5 Mg Tab) 0.5 mg PO BID PRN PRN Reason: anxiety Stop: 10/21/21 19:14 Last Admin: 09/23/21 08:17 Dose: 0.5 mg Documented by: Colchicine (Colchicine 0.6 Mg Tab) 0.3 mg PO DAILY [facility] Stop: 10/23/21 08:59 Last Admin: 09/23/21 08:10 Dose: 0.3 mg Documented by: Cyclobenzaprine HCl (Cyclobenzaprine Hcl 10 Mg Tab) 10 mg PO HS PRN PRN Reason: Muscle Spasm Stop: 10/21/21 19:14 Last Admin: 09/22/21 21:45 Dose: 10 mg Documented by: Dicyclomine HCl (Dicyclomine Hcl 20 Mg Tab) 20 mg PO QID PRN PRN Reason: abdominal pain Stop: 10/22/21 22:43 Docusate Sodium (Docusate Sodium 100 Mg Cap) 100 mg PO BID PRN PRN Reason: Constipation Stop: 10/22/21 22:43 Duloxetine HCl (Duloxetine Hcl 30 Mg Cap) 30 mg PO DAILY [facility] Stop: 10/20/21 10:11 Last Admin: 09/23/21 08:10 Dose: 30 mg Documented by: Duloxetine HCl (Duloxetine Hcl 60 Mg Cap) 60 mg PO QAM [facility] Stop: 10/20/21 10:11 Last Admin: 09/23/21 08:11 Dose: 60 mg Documented by: Furosemide (Furosemide 20 Mg Tab) 20 mg PO BID17 [facility] Stop: 10/22/21 08:59 Last Admin: 09/23/21 08:11 Dose: 20 mg Documented by: Gabapentin (Gabapentin 300 Mg Cap) 300 mg PO TID [facility] Stop: 10/22/21 22:43 Last Admin: 09/23/21 08:11 Dose: 300 mg Documented by: Guaifenesin (Guaifenesin 600 Mg Tabcr) 600 mg PO Q12 PRN PRN Reason: congestion Stop: 10/20/21 08:59 Insulin Aspart (Insulin Aspart Per Unit) 0 units [facility] Stop: 10/21/21 11:29 Last Admin: 09/23/21 12:07 Dose: 14 units Documented by: Insulin Glargine (Insulin Glargine Solostar 100 Units/Ml 3 Ml Pen) 45 units SC [facility]; Protocol Stop: 10/23/21 20:59 Levothyroxine Sodium (Levothyroxine Sodium 200 Mcg Tablet) 200 mcg PO DAILYBB [facility] Stop: 10/20/21 10:11 Last Admin: 09/23/21 06:18 Dose: 200 mcg Documented by: Levothyroxine Sodium (Levothyroxine Sodium 50 Mcg Tablet) 50 mcg PO DAILYBB [facility] Stop: 10/20/21 10:11 Last Admin: 09/23/21 06:18 Dose: 50 mcg Documented by: Lidocaine (Lidocaine 5% 1 Patch) 1 patch TD [facility] Stop: 10/22/21 22:43 Last Admin: 09/22/21 23:31 Dose: 1 patch Documented by: Magnesium Oxide (Magnesium Oxide 400 Mg Tab) 400 mg PO BID [facility] Stop: 10/21/21 20:59 Last Admin: 09/23/21 08:12 Dose: 400 mg Documented by: Miscellaneous (Remove Lidoderm Patch) 1 ea N/A QAM [facility] Stop: 10/23/21 08:59 Last Admin: 09/23/21 08:12 Dose: 1 ea Documented by: Miscellaneous Information (Pharmacy Glycemic Mgmt Consult) 1 ea N/A UD PRN PRN Reason: Consult Stop: 10/20/21 08:14 Nortriptyline HCl (Nortriptyline Hcl 25 Mg Cap) 50 mg PO [facility] Stop: 10/20/21 20:59 Last Admin: 09/22/21 20:54 Dose: 50 mg Documented by: Ondansetron HCl (Ondansetron Inj 2 Mg/Ml 2 Ml Vial) 4 mg IV Q8H PRN PRN Reason: Nausea And Vomiting Stop: 10/22/21 11:48 Last Admin: 09/22/21 21:03 Dose: 4 mg Documented by: Oxymetazoline HCl (Oxymetazoline 0.05% 30 Ml Btl) 2 sprays NA BID [facility] Stop: 09/24/21 00:44 Last Admin: 09/23/21 08:12 Dose: 2 sprays Documented by: Pantoprazole Sodium (Pantoprazole 40 Mg Tab) 40 mg PO [facility]; Protocol Stop: 10/20/21 20:59 Last Admin: 09/22/21 20:54 Dose: 40 mg Documented by: Potassium Chloride (Potassium Chloride 10 Meq Tabcr) 10 meq PO DAILY [facility] Stop: 10/23/21 08:59 Last Admin: 09/23/21 08:12 Dose: 10 meq Documented by: Ropinirole HCl (Ropinirole Hcl 2 Mg Tablet) 2 mg PO [facility] Stop: 10/21/21 20:59 Last Admin: 09/22/21 20:54 Dose: 2 mg Documented by: Vitamin D (Cholecalciferol 1,000 Units 25 Mcg Tab) 1,000 units PO QAM [facility] Stop: 10/23/21 08:59 Last Admin: 09/23/21 08:09 Dose: 1,000 units Documented by: (1) Pneumonia Laterality: bilateral Lung location: unspecified part of lung Pneumonia type: due to unspecified organism Qualified Code(s): J18.9 - Pneumonia, unspecified organism
[2021-09-23] MEDS ORDERED: FUROSEMIDE 40 MG TAB PO SCH (17:00)
[2021-09-23] MEDS: NORTRIPTYLINE HCL 25 MG CAP PO SCH (20:37)
[2021-09-23] MEDS: rOPINIRole HCL 2 MG TABLET PO SCH (20:37)
[2021-09-23] MEDS: PANTOprazole 40 MG TAB PO SCH (20:38)
[2021-09-23] MEDS: LIDOCAINE 5% 1 PATCH TD SCH (20:38)
[2021-09-23] MEDS ORDERED: INSULIN GLARGINE SOLOSTAR 100 UNITS/ML 3 ML PEN SC SCH (21:00)
[2021-09-23] MEDS: ONDANSETRON INJ 2 MG/ML 2 ML VIAL IV PRN (22:04)
[2021-09-23] MEDS: CYCLOBENZAPRINE HCL 10 MG TAB PO PRN (23:55)
[2021-09-24 01:56] LABS: Basophils # (auto) 0.04 K/uL (0-0.2); Basophils % (auto) 0.4 %; Eosinophils # (auto) 0.36 K/uL (0-0.5); Eosinophils % (auto) 3.7 %; Hematocrit (blood only) 42.3 % (37-47); Immature Granulocytes # (auto) 0.05 K/uL (0.00-0.02); Immature Granulocytes % (auto) 0.5 %; Lymphocytes # (auto) 2.13 K/uL (1.2-3.4); Lymphocytes % (auto) 21.7 %; Mean Corpuscular Hemoglobin 31.3 pg (25-34); Mean Corpuscular Volume 101.7 fL (80-100); Mean Platelet Volume 9.7 fL (7.4-10.4); Monocytes # (auto) 0.86 K/uL (0.11-0.59); Monocytes % (auto) 8.8 %; Neutrophils # (auto) 6.37 K/uL (1.4-6.5); Neutrophils % (auto) 64.9 %; Platelet Count 420 K/uL (130-400); RDW Coefficient of Variation 15.7 % (11.5-14.5); RDW Standard Deviation 57.7 fL (36.4-46.3); Red Blood Count 4.16 M/uL (4.2-5.4); White Blood Count 9.81 K/uL (4.8-10.8)
[2021-09-24 01:58] LABS: Base Excess ABG 5.7 mEq/L (-9-1.8); HCO3 ABG 31 mmol/L (19-24); PCO2 ABG 47 mmHg (35-46); PO2 ABG 76 mmHg (80-95); pH ABG 7.43 (7.35-7.45)
[2021-09-24 01:59] LABS: Allen Test Pos (Pos)
[2021-09-24 03:03] LABS: Alanine Aminotransferase 36 (12-78); Albumin Globulin Ratio 0.7 (0.9-2); Albumin Level 2.9 gm/dl (3.4-5.0); Alkaline Phosphatase 88 U/L (45-117); Aspartate Aminotransferase 16 U/L (15-37); BUN Creatinine Ratio 13.5 (10-20); Bilirubin,Total 0.4 mg/dl (0.2-1); Blood Urea Nitrogen 18 mg/dl (7-18); Carbon Dioxide 33 mmol/L (21-32); Chloride 101 mmol/L (98-107); Creatinine Clr Calc Pharmacy 63.3 ml/min; Est GFR (African American) 47.3 ml/min; Est GFR (Non-African American) 40.8 ml/min; Globulin 4.2 gm/dl (2.5-4.0); Glucose 112 mg/dl (70-99); Magnesium 1.6 mg/dl (1.8-2.4); Mean Corpuscular Hgb Conc 30.7 g/dL (32-36); Potassium 3.5 mmol/L (3.5-5.1); Sodium 137 mmol/L (136-145); Total Protein 7.1 gm/dl (6.4-8.2); Troponin I < 0.015 ng/ml (0-0.045)
[2021-09-24] MEDS ORDERED: FUROSEMIDE INJ 20 MG/2 ML VIAL IV ONE (04:26)
[2021-09-24] MEDS ORDERED: POTASSIUM CHLORIDE CRTAB 20 MEQ TABCR PO STA (04:26)
[2021-09-24] MEDS: MAGNESIUM SULFATE / D5W 1 GM/100 ML BAG IV SCH ×2 (05:11→08:31)
[2021-09-24] MEDS: ACETAMINOPHEN 325 MG TAB PO PRN ×2 (05:20→14:56)
[2021-09-24] MEDS: LEVOTHYROXINE SODIUM 200 MCG TABLET PO SCH (05:45)
[2021-09-24] MEDS: LEVOTHYROXINE SODIUM 50 MCG TABLET PO SCH (05:45)
[2021-09-24] MEDS ORDERED: OPTIRAY 320 125ml IV ONE (06:12)
--- NOTE | 2021-09-24 07:00 | CT Scan Report ---
CT ANGIOGRAPHY OF THE CHEST, PULMONARY EMBOLUS PROTOCOL CLINICAL HISTORY: Shortness of breath. COMPARISON STUDY: Chest CT September 20, 2021. Chest radiograph September 24, 2021. TECHNIQUE: Following IV administration of 120 mL of Optiray, helical axial images of the chest were o btained utilizing the pulmonary embolus protocol. Maximal intensity projections and sagittal and cor onal reformats were viewed on an independent 3D workstation. IV contrast was administered without co mplication. Automated exposure control was utilized for the study. A dose lowering technique was ut ilized adhering to the principles of ALARA. CT DOSE: 1160.31 mGy.cm FINDINGS: No pulmonary emboli are identified. There is no thoracic aortic dissection. Mild cardiomeg kanchan is noted. There is no pericardial effusion. Enlarged mediastinal and bilateral hilar lymph nodes have increased in size since chest CT of April 04, 2021. Index subcarinal lymph node measures 1.6 cm i n short axis diameter. There is no pneumothorax. Trace right pleural effusion is present. Central air ways are patent. There is evidence for interstitial lung disease with subpleural reticulation which w ere shown on earlier exams. In addition, ground glass opacities within the lungs have increased since earlier CTs. No consolidation is identified. There is no cavitation. Gallbladder surgically absent. Upper abdominal ventral hernia is partially imaged. IMPRESSION: 1. No pulmonary emboli identified. 2. Increase in groundglass opacities within the lungs. This may reflect an infectious process superim posed upon interstitial lung disease. 3. Increase in mediastinal and bilateral hilar lymphadenopathy which is likely reactive. 4. Mild cardiomegaly. Moderate coronary artery calcification. ACT 112: Negative or not required by law. Electronically signed by: David Lugo M.D. 09/24/2021 6:58 AM
--- NOTE | 2021-09-24 07:22 | XRay Report ---
XR chest 1V portable CLINICAL HISTORY: hypoxia COMPARISON STUDY: Chest radiograph and chest CT September 20, 2021. FINDINGS: Diffuse interstitial thickening is again noted. This is similar to exam of September 20 but increased since exam of April 01, 2021. Cardiomegaly is unchanged. No pneumothorax or pleural eff usion is present. IMPRESSION: Diffuse interstitial thickening, as described above. This is increased from earlier exam s and may reflect an infectious process superimposed upon interstitial lung disease. ACT 112: Negative or not required by law. Electronically signed by: David Lugo M.D. 09/24/2021 7:20 AM
[2021-09-24] MEDS ORDERED: MAGNESIUM SULFATE / D5W 1 GM/100 ML BAG IV STA (07:29)
[2021-09-24] MEDS: AZITHROMYCIN 250 MG TAB PO SCH (08:42)
[2021-09-24] MEDS: CEFDINIR 300 MG CAP PO SCH ×2 (08:43→21:43)
[2021-09-24] MEDS: CHOLECALCIFEROL 1,000 UNITS 25 MCG TAB PO SCH (08:43)
[2021-09-24] MEDS: COLCHICINE 0.6 MG TAB PO SCH (08:44)
[2021-09-24] MEDS: DULoxetine HCL 30 MG CAP PO SCH (08:45)
[2021-09-24] MEDS: DULoxetine HCL 60 MG CAP PO SCH (08:45)
[2021-09-24] MEDS: FUROSEMIDE 20 MG TAB PO SCH ×2 (08:45→18:18)
[2021-09-24] MEDS: GABAPENTIN 300 MG CAP PO SCH ×3 (08:46→21:43)
[2021-09-24] MEDS: POTASSIUM CHLORIDE 10 MEQ TABCR PO SCH (08:47)
[2021-09-24] MEDS: MAGNESIUM OXIDE 400 MG TAB PO SCH ×2 (08:47→21:45)
[2021-09-24 08:59] LABS: BUN Creatinine Ratio 13.4 (10-20); Creatinine Clr Calc Pharmacy 66.7 ml/min; Est GFR (African American) 50.4 ml/min; Est GFR (Non-African American) 43.5 ml/min; Potassium 3.7 mmol/L (3.5-5.1)
[2021-09-24] MEDS: INSULIN ASPART PER UNIT SC SCH ×4 (09:00→21:46)
--- NOTE | 2021-09-24 09:50 | Hospitalist Progress Note ---
Date of Service September 24, 2021 Assessment & Plan (1) Acute respiratory failure with hypoxia: (2) Sepsis: (3) Pneumonia: Plan: Pt presents with fever, cough, confusion Meets sirs criteria for sepsis given tachycardia, fever, encephalopathy, WBC minimally elevated, (pt also has elsie and elev. trop.) Covid, RSV, influenza negative blood cultx - negatve in the ED given cefepime, and 1L of NS At home supposed to use 2L of suppl. O2 continuously Currently on 3LPM will try to wean O2 as tolerated but she is around her baseline and this is expected with a pneumonia. Cont. w/ ceftriaxone and doxycycline-->change to cefdinir and azithromycin given the reaction to doxycycline (also not documented but states she cannot tolerate PCN either) cont pulm toilet efforts. Given CXR findings and elevated troponin, elevated proBNP, concern for poss. pulm. edema/ chf exacerbation obtained chest CT to eval. lung parenchyma more closely and discussed w/ radiologist - per radiologist-not pulm. edema, and findings more c/w pulm. fibrosis outpatient pulm follow-up recommended. She is already under the care of [facility] Pulmonology (4) UTI (urinary tract infection): Plan: Klebsiella in urine, cont abx as above. Pt reports hx of recurrent UTIs (w/o dysuria or hematuria, asymptomatic) (5) ELSIE (acute kidney injury): Plan: ELSIE on CKD stage III baseline Cr about 1.4-1.5 Cr 2.6 on admission Now improved to baseline. (6) Elevated troponin: Plan: Most likely demand ischemia in the setting of acute illness and ELSIE on CKD Pt reports no chest pain received ASA in ED troponin peaked at 0.3 echo obtained - no wall motion abnormality, EF 60-65% Pt remains chest pain free (pt has hx of HIT so can not use heparin if needed anticoag.) (7) Sleep apnea: Plan: Cont. CPAP (8) Morbid obesity: (9) Diabetes mellitus, type II: Plan: chronic, stable. Currently euglycemic, current A1c 7.3% -hold home meds and cont. w/ insulin while inpt - glycemic pharmacy consulted. (10) DVT prophylaxis: Plan: DVT ppx: SCDs, hx of HIT therefore avoid heparin products Code: Full Dispo-to home in 1-2 days. DO Nga Fairchild Hospitalist (11) Acute metabolic encephalopathy: Plan: resolved Admission and Anticipated Discharge Date Admission Date: September 20, 2021 Subjective 66 yo F presents with fever cough and confusion. Currently being treated for pneumonia and UTI She denies dysuria or other UTI symptoms, but states that UTIs are a recurrent issue for her She reports her breathing is back to baseline and she is on her baseline oxygen supplementation She denies any chest pain and has remained afebrile She is tolerating PO Some nausea with ?doxy this am, better with Zofran Review of Systems Review of Systems: All systems were reviewed and negative except as indicated above. Results & Data Results & Data ([facility]) Vital Signs (Past 12 Hours) Vital Signs Temp Pulse Resp BP BP Pulse Ox 09/24/21 07:41 36.5 C 89 16 143/86 H 94 09/24/21 06:44 95 09/24/21 04:34 110/70 09/24/21 01:45 30 H 97 09/24/21 01:38 98 09/24/21 01:30 109 H 24 89/47 L 100 09/23/21 22:49 37.2 C 80 20 125/81 91 (1) Pneumonia Laterality: bilateral Lung location: unspecified part of lung Pneumonia type: due to unspecified organism Qualified Code(s): J18.9 - Pneumonia, unspecified organism
--- NOTE | 2021-09-24 10:21 | Hospitalist Progress Note ---
Date of Service September 24, 2021 Assessment & Plan Admission and Anticipated Discharge Date Admission Date: September 20, 2021 Subjective Code purple was called last night as patient complained of tingliness in fingers and chest discomfort and was 40% oxygen sats. With increased oxygenaton her oxygen sats improved. Alert and oriented. EKG and LABs ok.. CTA chest ordered and NO PE found. Doing ok on nasal canula. Continue to Monitor. Thanks Results & Data Results & Data ([facility] [place]) Vital Signs (Past 12 Hours) Vital Signs Temp Pulse Resp BP BP Pulse Ox 09/24/21 07:41 36.5 C 89 16 143/86 H 94 09/24/21 06:44 95 09/24/21 04:34 110/70 09/24/21 01:45 30 H 97 09/24/21 01:38 98 09/24/21 01:30 109 H 24 89/47 L 100 09/23/21 22:49 37.2 C 80 20 125/81 91
--- NOTE | 2021-09-24 11:11 | Pharmacy Report ---
Pharmacy Glycemic Short Note 2 - Date of Service September 24, 2021 - Glycemic Short BSG Results (Last 24 hours): 09/23/21 09/23/21 09/24/21 16:22 20:08 01:27 Glucose POC Glucose 117 H 109 H 90 09/24/21 09/24/21 09/24/21 01:47 08:00 08:14 Glucose 112 H 116 H POC Glucose 113 H OUTPATIENT ANTIDIABETIC REGIMEN: * Trulicity (Dulaglutide) SQ Weekly * Tresiba (Insulin degludec) 60 units SQ HS * NovoLog 40 units SQ with meals + SSI * A1c = 7.3% on 09/21/21 ASSESSMENT: 09/24: * Code purple last night, patient improved with increase in O2 * BSGs well controlled over last 24 hrs, will empirically decrease Lantus and loosen CF/CR to prevent hypoglycemia. 09/23: * BSGs well controlled over last 24 hrs * Fasting BSG 99 this AM w/ 55 units Lantus on board. Will decrease dose ~20% as 2 BSGs less than 100 in last 24 hrs and fasting BSG may continue to drop as we approach steady state w/ higher dose. * Post-prandial BSGs well controlled yesterday (Prelunch elevation explainable yesterday). Will reduce prandial and correctional insulin doses slightly given downward trend in BSGs and concern for basal heavy regimen. 09/22: * BSGs well controlled over last 24 hrs * Fasting BSG 141 today with 55 units basal on board, will continue the same for now * Post-prandial BSGs at goal or near goal yesterday w/ current CR, will continue for now. Today's pre-lunch hyperglycemia likely due to late admin of AM Novolog following meal. BSG was checked less than 1 hr after Novolog admin. 09/21: * Patient relatively well controlled over the past 24 hours. Although fasting BSG was within goal today will increase evening lantus dose as patient is tolerating a diet at this time. * Today's lunch BSG slightly elevated however this may be due to a small clear liquid breakfast that was not covered. Will monitor trend. 09/20 * 66yo T2DM female with unknown degree of outpatient control as A1c is outdated. Will re-order for tomorrow w/ AM labs * Pt is maintained on SQ GLP1 + moderately high SQ basal bolus insulin regimen. * Outpatient basal insulin is Tresiba (Insulin degludec) which is non-formulary; will sub to Lantus for inpatient use * Pt NPO- will reduce outpatient dosing of basal and set a weight based NovoLog scale PLAN FOR INPATIENT GLYCEMIC CONTROL: * Hold outpatient diabetes medications * Basal insulin * Lantus 40 units SQ HS * Bolus insulin * NovoLog per scale ACHS or Q6hrs while NPO * Goal Range: Low 110 mg/dL - High 140 mg/dL * Correction Factor: 15 mg/dL/unit * Nutritional / Prandial insulin per carb ratio of 1 unit per 5 grams CHO consumed PLAN FOR DISCHARGE: * Renal fxn has improved. Would recommend resuming patient's outpt regimen of Tresiba + Novolog and Trulicity on discharge if no contraindications present, patient not experiencing hypoglycemia w/ regimen, and patient able to resume normal diet/activity levels. Recommend close f/u with PCP/Endocrinology to monitor and adjust medication regimen. A1c 7.3% this admission is at goal
[2021-09-24] MEDS: clonazePAM 0.5 MG TAB PO PRN ×2 (12:54→22:03)
--- NOTE | 2021-09-24 16:51 | Discharge Summary ---
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 Pt reports not feeling well, and "achey" for the past couple of days. Today she also noted to be more confused, "walking into the poe" and "not making sense". She noted fever and therefore presented to ER for further evaluation. Pt lives alone. Says she uses 2L of suppl. O2 with CPAP at home and that she is supposed to use 2L during the day as needed however she usually does not use it during the day. Cough is occasional with some yellow sputum. She does not weigh herself regularly but reports no significant weight gain or weight loss. Denies any edema in her legs or abdominal girth. Denies having any chest pain, or abdominal pain at home. Also denies n/v, dysuria, hematuria. In the ED she was found hypoxic in 80s on 2L of suppl. O2, currently pt is on 4L. She was also found to have elevated Cr at 2.6, elevated troponin. CXR concerning for pneumonia. Received 1L of NS and cefepime in the ED. Discharge Data Allergies Allergy/AdvReac Type Severity Reaction Status Date / Time morphine Allergy Severe VIOLENT Verified 09/20/21 07:34 REACTION-"ALMOST " SWELLING tetanus toxoid, adsorbed Allergy Intermediate PASSED OUT Verified 09/20/21 07:34 AND GOT SICK WHEN A CHILD bupropion [From Wellbutrin] AdvReac Intermediate Recurrent Verified 09/20/21 09:25 falls as per patient codeine AdvReac Intermediate Hallucinati Verified 09/20/21 07:34 ons empagliflozin AdvReac Intermediate YEAST Verified 09/20/21 07:34 [From Jardiance] INFECTIONS heparin AdvReac Intermediate HIT; FLUID Verified 09/20/21 07:34 IN LUNGS hydrocodone [From Vicodin] AdvReac Intermediate sleepiness Verified 09/20/21 07:34 Consultations 09/20/21 07:41 ED Decision to Admit Stat 09/20/21 15:49 Consult Nephrology Routine Ordered Studies 09/20/21 10:12 CT chest diagnostic wo con Urgent 09/24/21 04:59 CT angio chest PE protocol Urgent Hospital Course (1) Acute respiratory failure with hypoxia: (2) Sepsis: (3) Pneumonia: Pt presents with fever, cough, confusion Meets sirs criteria for sepsis given tachycardia, fever, encephalopathy, WBC minimally elevated, (pt also has elsie and elev. trop.) Covid, RSV, influenza negative blood cultx - negatve in the ED given cefepime, and 1L of NS At home supposed to use 2L of suppl. O2 continuously Currently on 3LPM will try to wean O2 as tolerated but she is around her baseline and this is expected with a pneumonia. Cont. w/ ceftriaxone and doxycycline-->change to cefdinir and azithromycin given the reaction to doxycycline (also not documented but states she cannot tolerate PCN either) cont pulm toilet efforts. Given CXR findings and elevated troponin, elevated proBNP, concern for poss. pulm. edema/ chf exacerbation obtained chest CT to eval. lung parenchyma more closely and discussed w/ radiologist - per radiologist-not pulm. edema, and findings more c/w pulm. fibrosis outpatient pulm follow-up recommended. She is already under the care of [facility] Pulmonology (4) UTI (urinary tract infection): Klebsiella in urine, cont abx as above. Pt reports hx of recurrent UTIs (w/o dysuria or hematuria, asymptomatic) (5) ELSIE (acute kidney injury): ELSIE on CKD stage III baseline Cr about 1.4-1.5 Cr 2.6 on admission Now improved to baseline. (6) Elevated troponin: Most likely demand ischemia in the setting of acute illness and ELSIE on CKD Pt reports no chest pain received ASA in ED troponin peaked at 0.3 echo obtained - no wall motion abnormality, EF 60-65% Pt remains chest pain free (pt has hx of HIT so can not use heparin if needed anticoag.) (7) Sleep apnea: Cont. CPAP (8) Morbid obesity: (9) Diabetes mellitus, type II: chronic, stable. Currently euglycemic, current A1c 7.3% -hold home meds and cont. w/ insulin while inpt - glycemic pharmacy consulted. (10) DVT prophylaxis: DVT ppx: SCDs, hx of HIT therefore avoid heparin products Code: Full Dispo-to home in 1-2 days. Shantell Eli DO [facility] Hospitalist (11) Acute metabolic encephalopathy: resolved Discharge Plan Discharge Items Patient Disposition: Home - Self-Care Reason For Visit: PNA,ELSIE Discharge Diagnosis: Sepsis 2/2 pneumonia, urinary tract infection Activity: Resume your previous activity Non-emergency contact: Primary Care Provider Call non-emergency contact if: you have any medication questions, your symptoms worsen and you have a fever Follow-up/Referrals: Kevin Whiteside DO [Primary Care Provider] - (Date & Time 09/29/2021 11:00 AM Provider Kevin Whiteside DO [facility] ) Diet: Carb Consistent or DM2 and Low Sodium (2gm) Addtl Attending Provider Instructions: You were admitted for pneumonia and urinary tract infection Please complete remainder of cefdinir and azithromycin (antibiotics) You are back to your baseline oxygen requirement. Please continue using home oxygen and CPAP at night as before RECOMMENDATIONS FOR FOLLOW-UP: Please follow up with primary care provider Dr. Whiteside on 09/29/2021 at 11:00 AM. Continue following with [facility] and sleep medicine as an outpatient. OTHER INSTRUCTIONS: Seek medical attention if you have: * temperature above 101 * chest pain or trouble breathing * abdominal pain, nausea, vomiting * diarrhea, dark stools or bloody stools * any unanswered questions or concerns Call 911 if symptoms are severe. Please take good care of yourself. Call if you have any questions or problems. You can reach a [facility] hospitalist on duty at [facility] 24 hours a day by calling [phone]. Varsha Duncan PA-C [facility] Hospitalist Pending Studies at Discharge: No Stand-Alone Forms: My [facility], Smoking Cessation Medications and DC Order Prescriptions: New cefdinir 300 mg Capsule 300 mg PO BID Qty: 10 RF: 0 azithromycin 250 mg Tablet 500 mg PO QAM Qty: 4 RF: 0 Continued levothyroxine 200 mcg Tablet 200 mcg PO QAM RF: 0 omeprazole 20 mg Capsule,Delayed Release(Dr/Ec) 20 mg PO HS RF: 0 gabapentin 300 mg Capsule 300 mg PO TID RF: 0 furosemide [Lasix] 40 mg tablet 20 mg PO BID RF: 0 trazodone 50 mg tablet 50 mg PO HS RF: 0 magnesium oxide 400 mg (241.3 mg magnesium) Tablet 400 mg PO DAILY RF: 0 insulin aspart U-100 [Novolog U-100 Insulin aspart] 100 unit/mL solution 0 unit subcut ACHS RF: 0 colchicine 0.6 mg Tablet 0.3 mg PO DAILY RF: 0 duloxetine 30 mg Capsule,Delayed Release(Dr/Ec) 30 mg PO DAILY RF: 0 Tresiba FlexTouch U-100 100 unit/mL (3 mL) Insulin Pen 60 unit SUBCUT HS RF: 0 lidocaine 5 % Adhesive Patch,Medicated 1 patch transdermal HS Qty: 15 RF: 0 cyclobenzaprine 10 mg Tablet 10 mg PO HS PRN (Reason: Muscle Spasm) RF: 0 duloxetine 60 mg capsule,delayed release(DR/EC) 60 mg PO QAM RF: 0 potassium chloride 10 mEq tablet,ER particles/crystals 10 meq PO Q OTHER DAY RF: 0 tramadol 50 mg tablet 50 mg PO Q8H PRN (Reason: Pain) RF: 0 cholecalciferol (vitamin D3) 25 mcg (1,000 unit) Capsule 1,000 unit PO QAM Qty: 30 RF: 1 insulin aspart U-100 [Novolog Flexpen U-100 Insulin] 100 unit/mL (3 mL) insulin pen 40 unit SUBCUT WM RF: 0 Trulicity 3 mg/0.5 mL pen injector 3 mg SUBCUT WK RF: 0 dicyclomine 20 mg tablet 20 mg PO QID PRN (Reason: abdominal pain) RF: 0 nortriptyline [Pamelor] 50 mg capsule 50 mg PO HS RF: 0 levothyroxine 50 mcg tablet 50 mcg PO QAM RF: 0 docusate sodium [Colace] 100 mg capsule 100 mg PO BID PRN (Reason: Constipation) RF: 0 meclizine 12.5 mg tablet 12.5 mg PO TID PRN (Reason: Dizziness) RF: 0 clonazepam 0.5 mg Tablet 0.5 mg PO BID PRN (Reason: anxiety) Qty: 0 RF: 0 ropinirole 2 mg Tablet 2 mg PO HS RF: 0 Krames/Other Patient Handouts: Managing Type 2 Diabetes Admission Data Admit Date/Time: 09/20/21 08:04 Attending Provider: Shantell Eli Admit Provider: Miguel Hampton Primary Care Provider: Kevin Whiteside Other Providers: Juan Gr ; Erik Lenz ; Varsha Duncan
--- NOTE | 2021-09-24 17:21 | Hospitalist Progress Note ---
Date of Service September 24, 2021 Assessment & Plan (1) Acute respiratory failure with hypoxia: (2) Sepsis: (3) Pneumonia: Plan: Pt presents with fever, cough, confusion Meets sirs criteria for sepsis given tachycardia, fever, encephalopathy, WBC minimally elevated, (pt also has elsie and elev. trop.) Covid, RSV, influenza negative blood cultx - negatve in the ED given cefepime, and 1L of NS At home supposed to use 2L of suppl. O2 continuously Currently on 3LPM will try to wean O2 as tolerated but she is around her baseline and this is expected with a pneumonia. Cont. w/ ceftriaxone and doxycycline-->changes to cefdinir and azithromycin given the reaction to doxycycline (also not documented but states she cannot tolerate PCN either) Will complete abx course on 09/26 Cont pulm toilet efforts Given CXR findings and elevated troponin, elevated proBNP, concern for poss. pulm. edema/ chf exacerbation Obtained chest CT to eval. lung parenchyma more closely and discussed w/ radiologist - per radiologist-not pulm. edema, and findings more c/w pulm. fibrosis Outpatient pulm follow-up recommended. She is already under the care of [facility] (4) Acute metabolic encephalopathy: Plan: resolved (5) UTI (urinary tract infection): Plan: Klebsiella in urine, cont abx as above. Pt reports hx of recurrent UTIs (w/o dysuria or hematuria, asymptomatic) (6) ELSIE (acute kidney injury): Plan: ELSIE on CKD stage III baseline Cr about 1.4-1.5 Cr 2.6 on admission Now improved to baseline (7) Elevated troponin: Plan: Most likely demand ischemia in the setting of acute illness and ELSIE on CKD Pt reports no chest pain received ASA in ED troponin peaked at 0.3 echo obtained - no wall motion abnormality, EF 60-65% Pt remains chest pain free (pt has hx of HIT so can not use heparin if needed anticoag.) (8) Sleep apnea: Plan: Cont. CPAP (9) Morbid obesity: (10) Diabetes mellitus, type II: Plan: chronic, stable. Currently euglycemic, current A1c 7.3% -hold home meds and cont. w/ insulin while inpt - glycemic pharmacy consulted (11) DVT prophylaxis: Plan: DVT ppx: SCDs, hx of HIT therefore avoid heparin products Code: Full Dispo- likey dc home tomorrow Admission and Anticipated Discharge Date Admission Date: September 20, 2021 Supervising Physician Co-Signing Physician Notes I have seen and examined the patient and have discussed the case with the provider above. I agree with the assessment and plan as stated. 66 yo F admitted for sepsis 2/2 pneumonia and UTI. Initially discharge was delayed as there were 1 out of 4 bottles positive for gram-positive cocci in chains. Speciation is still pending. There is minimal to no growth on the Agustin dish per microbiology and this is likely contaminant. Repeat blood cultures are pending and patient is clinically well. She is eager to go home however overn ight last night she developed an acute hypoxic episode with subsequent chest pain when she awoke. She noted feeling numbness in her fingertips prior to falling asleep and she has not been wearing her CPAP during this admission. After application of oxygen and CPAP overnight her symptoms completely resolved and she is remained symptom-free since that time. She elects to stay overnight again to make sure that her breathing is stable and does not have any issues going home. She continues on antibiotics and is tolerating p.o. and otherwise doing well. Physical exam reveals clear lungs to auscultation and normal cardiac exam. No peripheral edema is noted. She is morbidly obese and physically deconditioned. Will order PT/OT evaluation prior to discharge to home. DO Zaina Eli Seen and examined in 379-1. Breathing more comfortably this afternoon. Did not have CPAP ordered first few nights but used last night. Did have an episode during the night with tingling in fingers and chest discomfort with oxygen saturation in 40%. Was evaluated at bedside by spool tender and with increased oxygenation, her sats returned to baseline improved. EKG and LABs were unchanged and CTA chest ordered and NO PE found. Patient feeling improved but more comfortable with the thought of staying one more night based on last night's episode. No fever, chills, CP, N/V/abdominal pain, dysuria, diarrhea or constipation. Review of Systems Review of Systems: At least ten systems reviewed and negative except as noted in the HPI. Physical Exam Physical Exam: Gen: WD/WN, NAD, morbidly obese, sleeping with cpap mask on but easily arousable, answered questions appropriately, A&Ox3 HEENT: Normocephalic, atraumatic, conjunctivae moist, sclerae anicteric, mucous membranes moist Lung: Clear to Auscultation bilaterally, no wheezes/rales/rhonchi Heart: Regular rate, regular rhythm, no murmurs, rubs, or gallops Abdomen: Soft, NT, ND +BS x 4 Extremities: no edema Skin: Warm, no rash Results & Data Results & Data ([facility]) Vital Signs (Past 12 Hours) Vital Signs Temp Pulse Resp BP BP Pulse Ox 09/24/21 15:28 36.8 C 89 18 101/68 93 09/24/21 07:41 36.5 C 89 16 143/86 H 94 09/24/21 06:44 95 Laboratory Results Short CBC 09/24/21 Range/Units 01:47 WBC 9.81 (4.8-10.8) K/uL Hgb 13.0 (12.0-16.0) g/dL Hct 42.3 (37-47) % Plt Count 420 H (130-400) K/uL BMP 09/24/21 09/24/21 01:47 08:00 Sodium 137 138 Potassium 3.5 3.7 Chloride 101 103 Carbon Dioxide 33 H 31 BUN 18 17 Creatinine 1.35 H 1.28 H Glucose 112 H 116 H Calcium 9.0 9.0 Cardiac Enzymes 09/24/21 Range/Units 01:47 Troponin I < 0.015 (0-0.045) ng/ml Liver Function 09/24/21 Range/Units 01:47 Total Bilirubin 0.4 (0.2-1) mg/dl AST 16 (15-37) U/L ALT 36 (12-78) Alkaline Phosphatase 88 (45-117) U/L Albumin 2.9 L (3.4-5.0) gm/dl Diagnostic Findings Chest X-Ray 09/20/21 05:58 XR chest 1V portable CLINICAL HISTORY: Fever, Weakness. Evaluate cardiopulmonary status COMPARISON STUDY: 04/01/2021 TECHNIQUE: 1 view of the chest FINDINGS: Single frontal view of the chest demonstrates the heart size to be mildly enlarged. Patchy interstitial and alveolar opacities are now present bilaterally. The findings are most characteristic of a viral type pneumonitis. Covid 19 pneumonia should be excluded. There is no evidence for pleural effusion. There is no evidence for vascular congestion. There is no acute osseous pathology. IMPRESSION: Patchy interstitial and alveolar opacities are now seen bilaterally characteristic of a viral type pneumonitis and probable Covid 19 pneumonia. ACT 112: Negative or not required by law. Electronically signed by: Jose Coppola M.D. 09/20/2021 8:[address] 09/20/21 10:12 CT chest diagnostic wo con CLINICAL HISTORY: abnormal CXR . Follow-up interstitial and alveolar opacities in a patient with fever COMPARISON STUDY: Portable chest from 09/20/2021 and previous CTA chest from 04/04/2021 CT DOSE: 1255.67 mGy.cm TECHNIQUE: Standard CT of the Chest was performed without IV contrast. A dose lowering technique was utilized adhering to the principles of ALARA. FINDINGS: Airway: The airway is clear. No endobronchial lesion is identified. Lungs: Compared to the previous CT examination, chronic interstitial fibrotic changes are again seen bilaterally which are not significantly changed. These are accentuated on patient's portable chest radiograph related to the patient's body habitus. The lungs are otherwise clear of acute alveolar opacities, air bronchograms or pulmonary nodules. No definite CT evidence for viral type pneumonitis is identified. Pleura: There is no evidence for pleural effusion. There is no evidence for pneumothorax. Mediastinum: There is no evidence for pathologic adenopathy on these limited noncontrast images. Stable reactive lymph nodes are again seen. The heart size is again enlarged. There is coronary artery and mitral valvular calcification present. The thoracic aorta is within normal limits. There is atherosclerotic calcification of the aortic arch and origin of the great vessels. There is no evidence for pericardial effusion. Upper abdomen: The adrenal glands are normal bilaterally. Osseous structures: There is no acute osseous pathology. IMPRESSION: 1. Compared to the previous CT examination, diffuse interstitial fibrotic changes are again seen and essentially unchanged. 2. There is otherwise no acute chest disease on these noncontrast images. 3. The finding seen on the chest radiograph are accentuated by the patient's body habitus. There is no evidence for viral type pneumonitis. ACT 112: Negative or not required by law. Electronically signed by: Jose Coppola M.D. 09/20/2021 10:42 AM Chest X-Ray 09/24/21 01:31 XR chest 1V portable CLINICAL HISTORY: hypoxia COMPARISON STUDY: Chest radiograph and chest CT September 20, 2021. FINDINGS: Diffuse interstitial thickening is again noted. This is similar to exam of September 20, 2021 but increased since exam of April 01, 2021. Cardiomegaly is unchanged. No pneumothorax or pleural effusion is present. IMPRESSION: Diffuse interstitial thickening, as described above. This is increased from earlier exams and may reflect an infectious process superimposed upon interstitial lung disease. ACT 112: Negative or not required by law. Electronically signed by: David Lugo M.D. 09/24/2021 7:20 AM Chest CTA 09/24/21 04:59 CT ANGIOGRAPHY OF THE CHEST, PULMONARY EMBOLUS PROTOCOL CLINICAL HISTORY: Shortness of breath. COMPARISON STUDY: Chest CT September 20, 2021. Chest radiograph September 24, 2021. TECHNIQUE: Following IV administration of 120 mL of Optiray, helical axial images of the chest were obtained utilizing the pulmonary embolus protocol. Maximal intensity projections and sagittal and coronal reformats were viewed on an independent 3D workstation. IV contrast was administered without complication. Automated exposure control was utilized for the study. A dose lowering technique was utilized adhering to the principles of ALARA. CT DOSE: 1160.31 mGy.cm FINDINGS: No pulmonary emboli are identified. There is no thoracic aortic dissection. Mild cardiomegaly is noted. There is no pericardial effusion. Enlarged mediastinal and bilateral hilar lymph nodes have increased in size since chest CT of April 04, 2021. Index subcarinal lymph node measures 1.6 cm in short axis diameter. There is no pneumothorax. Trace right pleural effusion is present. Central airways are patent. There is evidence for interstitial lung disease with subpleural reticulation which were shown on earlier exams. In addition, ground glass opacities within the lungs have increased since earlier CTs. No consolidation is identified. There is no cavitation. Gallbladder surgically absent. Upper abdominal ventral hernia is partially imaged. IMPRESSION: 1. No pulmonary emboli identified. 2. Increase in groundglass opacities within the lungs. This may reflect an infectious process superimposed upon interstitial lung disease. 3. Increase in mediastinal and bilateral hilar lymphadenopathy which is likely reactive. 4. Mild cardiomegaly. Moderate coronary artery calcification. ACT 112: Negative or not required by law. Electronically signed by: David Lugo M.D. 09/24/2021 6:58 AM (1) Pneumonia Laterality: bilateral Lung location: unspecified part of lung Pneumonia type: due to unspecified organism Qualified Code(s): J18.9 - Pneumonia, unspecified organism
--- NOTE | 2021-09-24 18:17 | Electrocardiogram Report ---
Test Reason : Blood Pressure : / mmHG Vent. Rate : 099 BPM Atrial Rate : 099 BPM P-R Int : 160 ms QRS Dur : 076 ms QT Int : 346 ms P-R-T Axes : 047 037 020 degrees QTc Int : 444 ms Normal sinus rhythm Nonspecific ST abnormality Abnormal ECG When compared with ECG of 20-SEP-2021 06:11, Nonspecific T wave abnormality, improved in Anterior leads Confirmed by Mina Palmer ([id number]) on 09/24/2021 6:17:17 PM Referred By: REFERRED SELF Confirmed By:Axel Palmer
[2021-09-24] MEDS ORDERED: INSULIN GLARGINE SOLOSTAR 100 UNITS/ML 3 ML PEN SC SCH (21:00)
[2021-09-24] MEDS: rOPINIRole HCL 2 MG TABLET PO SCH (21:42)
[2021-09-24] MEDS: NORTRIPTYLINE HCL 25 MG CAP PO SCH (21:43)
[2021-09-24] MEDS: PANTOprazole 40 MG TAB PO SCH (21:43)
[2021-09-24] MEDS: LIDOCAINE 5% 1 PATCH TD SCH (21:44)
[2021-09-25] MEDS: ACETAMINOPHEN 325 MG TAB PO PRN (01:15)
[2021-09-25] MEDS: LEVOTHYROXINE SODIUM 50 MCG TABLET PO SCH (06:11)
[2021-09-25] MEDS: LEVOTHYROXINE SODIUM 200 MCG TABLET PO SCH (06:11)
[2021-09-25] MEDS: AZITHROMYCIN 250 MG TAB PO SCH (08:24)
[2021-09-25] MEDS: CEFDINIR 300 MG CAP PO SCH (08:25)
[2021-09-25] MEDS: COLCHICINE 0.6 MG TAB PO SCH (08:26)
[2021-09-25] MEDS: CHOLECALCIFEROL 1,000 UNITS 25 MCG TAB PO SCH (08:26)
[2021-09-25] MEDS: DULoxetine HCL 60 MG CAP PO SCH (08:28)
[2021-09-25] MEDS: FUROSEMIDE 20 MG TAB PO SCH ×2 (08:28→16:56)
[2021-09-25] MEDS: DULoxetine HCL 30 MG CAP PO SCH (08:28)
[2021-09-25] MEDS: GABAPENTIN 300 MG CAP PO SCH ×2 (08:29→14:08)
[2021-09-25] MEDS: MAGNESIUM OXIDE 400 MG TAB PO SCH (08:29)
[2021-09-25] MEDS: INSULIN ASPART PER UNIT SC SCH ×3 (09:25→17:52)
--- NOTE | 2021-09-25 10:56 | Pharmacy Report ---
Pharmacy Glycemic Short Note 2 - Date of Service September 25, 2021 - Glycemic Short BSG Results (Last 24 hours): 09/24/21 09/24/21 09/24/21 12:07 17:14 21:14 POC Glucose 139 H 99 85 09/25/21 08:13 POC Glucose 118 H OUTPATIENT ANTIDIABETIC REGIMEN: * Trulicity (Dulaglutide) SQ Weekly * Tresiba (Insulin degludec) 60 units SQ HS * NovoLog 40 units SQ with meals + SSI * A1c = 7.3% on 09/21/21 ASSESSMENT: 09/25/21 * Patient's BSGs yesterday were [phone] mg/dL. Patient received 60 units of insulin (40 units of basal and 20 units of bolus). * Fasting today is 118 mg/dL. * Continue Lantus as fasting BSG within goal range. * Loosen Novolog as BSGs trended downwards throughout the day. 09/24: * Code purple last night, patient improved with increase in O2 * BSGs well controlled over last 24 hrs, will empirically decrease Lantus and loosen CF/CR to prevent hypoglycemia. 09/23: * BSGs well controlled over last 24 hrs * Fasting BSG 99 this AM w/ 55 units Lantus on board. Will decrease dose ~20% as 2 BSGs less than 100 in last 24 hrs and fasting BSG may continue to drop as we approach steady state w/ higher dose. * Post-prandial BSGs well controlled yesterday (Prelunch elevation explainable yesterday). Will reduce prandial and correctional insulin doses slightly given downward trend in BSGs and concern for basal heavy regimen. 09/22: * BSGs well controlled over last 24 hrs * Fasting BSG 141 today with 55 units basal on board, will continue the same for now * Post-prandial BSGs at goal or near goal yesterday w/ current CR, will continue for now. Today's pre-lunch hyperglycemia likely due to late admin of AM Novolog following meal. BSG was checked less than 1 hr after Novolog admin. 09/21: * Patient relatively well controlled over the past 24 hours. Although fasting BSG was within goal today will increase evening lantus dose as patient is tolerating a diet at this time. * Today's lunch BSG slightly elevated however this may be due to a small clear liquid breakfast that was not covered. Will monitor trend. 09/20 * 66yo T2DM female with unknown degree of outpatient control as A1c is outdated. Will re-order for tomorrow w/ AM labs * Pt is maintained on SQ GLP1 + moderately high SQ basal bolus insulin regimen. * Outpatient basal insulin is Tresiba (Insulin degludec) which is non-formulary; will sub to Lantus for inpatient use * Pt NPO- will reduce outpatient dosing of basal and set a weight based NovoLog scale PLAN FOR INPATIENT GLYCEMIC CONTROL: * Hold outpatient diabetes medications * Basal insulin * Lantus 40 units SQ HS * Bolus insulin * NovoLog per scale ACHS or Q6hrs while NPO * Goal Range: Low 110 mg/dL - High 140 mg/dL * Correction Factor: 20 mg/dL/unit * Nutritional / Prandial insulin per carb ratio of 1 unit per 6 grams CHO consumed PLAN FOR DISCHARGE: * Renal fxn has improved. Would recommend resuming patient's outpt regimen of Tresiba + Novolog and Trulicity on discharge if no contraindications present, patient not experiencing hypoglycemia w/ regimen, and patient able to resume normal diet/activity levels. Recommend close f/u with PCP/Endocrinology to monitor and adjust medication regimen. A1c 7.3% this admission is at goal
[2021-09-25] MEDS: POTASSIUM CHLORIDE 10 MEQ TABCR PO SCH (14:07)
--- NOTE | 2021-09-25 16:02 | Discharge Summary ---
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 Pt reports not feeling well, and "achey" for the past couple of days. Today she also noted to be more confused, "walking into the poe" and "not making sense". She noted fever and therefore presented to ER for further evaluation. Pt lives alone. Says she uses 2L of suppl. O2 with CPAP at home and that she is supposed to use 2L during the day as needed however she usually does not use it during the day. Cough is occasional with some yellow sputum. She does not weigh herself regularly but reports no significant weight gain or weight loss. Denies any edema in her legs or abdominal girth. Denies having any chest pain, or abdominal pain at home. Also denies n/v, dysuria, hematuria. In the ED she was found hypoxic in 80s on 2L of suppl. O2, currently pt is on 4L. She was also found to have elevated Cr at 2.6, elevated troponin. CXR concerning for pneumonia. Received 1L of NS and cefepime in the ED. Admission Exam Per Admitting Provider Constitutional: + morbidly obese (F in NAD, on suppl. O2 ) Eyes: PERRL, conjunctivae normal, anicteric sclerae ENMT: external ear and nose normal, oropharynx normal Neck: trachea midline, no thyromegaly Respiratory: normal respiratory effort (diminished breath sounds, mild diff. rhonchi, no wheezing or crackles noted); does not use accessory muscles Cardiovascular: Rate/Rhythm: + tachycardic Heart Sounds: + murmur (soft syst.) Chest (Breasts): Chest: normal inspection of chest Gastrointestinal (Abdomen): normal bowel sounds, soft, nontender, no hepatosplenomegaly (obese, nontender to palpation) Musculoskeletal: no cyanosis or clubbing, extremities motor strength 5/5 Skin: no rashes, warm and dry Neurologic: PERRL, EOMI, accommodation nl, no face palsy, no dysarthria Psychiatric: A+Ox3, euthymic affect Genitourinary: no CVA tenderness Lymphatic: + lymphedema (minimal pedal edema) Principal Diagnosis Sepsis 2/2 pneumonia, urinary tract infection Discharge Exam Gen: WD/WN, NAD, morbidly obese, pleasant, A&Ox3, on suppl. O2 via NC (2L) HEENT: Normocephalic, atraumatic, conjunctivae moist, sclerae anicteric, mucous membranes moist Lung: Clear to Auscultation bilaterally, no wheezes/rales/rhonchi Heart: Regular rate, regular rhythm, no murmurs, rubs, or gallops Abdomen: Soft, NT, ND +BS x 4 Extremities: BLE lymphedema Skin: Warm, no rash Discharge Data Allergies Allergy/AdvReac Type Severity Reaction Status Date / Time morphine Allergy Severe VIOLENT Verified 09/20/21 07:34 REACTION-"ALMOST " SWELLING tetanus toxoid, adsorbed Allergy Intermediate PASSED OUT Verified 09/20/21 07:34 AND GOT SICK WHEN A CHILD bupropion [From Wellbutrin] AdvReac Intermediate Recurrent Verified 09/20/21 09:25 falls as per patient codeine AdvReac Intermediate Hallucinati Verified 09/20/21 07:34 ons empagliflozin AdvReac Intermediate YEAST Verified 09/20/21 07:34 [From Jardiance] INFECTIONS heparin AdvReac Intermediate HIT; FLUID Verified 09/20/21 07:34 IN LUNGS hydrocodone [From Vicodin] AdvReac Intermediate sleepiness Verified 09/20/21 07:34 Consultations 09/20/21 07:41 ED Decision to Admit Stat 09/20/21 15:49 Consult Nephrology Routine Ordered Studies 09/20/21 10:12 CT chest diagnostic wo con Urgent IMPRESSION: 1. Compared to the previous CT examination, diffuse interstitial fibrotic changes are again seen and essentially unchanged. 2. There is otherwise no acute chest disease on these noncontrast images. 3. The finding seen on the chest radiograph are accentuated by the patient's body habitus. There is no evidence for viral type pneumonitis. 09/24/21 04:59 CT angio chest PE protocol Urgent IMPRESSION: 1. No pulmonary emboli identified. 2. Increase in groundglass opacities within the lungs. This may reflect an infectious process superimposed upon interstitial lung disease. 3. Increase in mediastinal and bilateral hilar lymphadenopathy which is likely reactive. 4. Mild cardiomegaly. Moderate coronary artery calcification. Hospital Course (1) Acute respiratory failure with hypoxia: (2) Sepsis: (3) Pneumonia: Pt presents with fever, cough, confusion Met sirs criteria for sepsis given tachycardia, fever, encephalopathy, WBC min imally elevated, (pt also has elsie and elev. trop.) Covid, RSV, influenza negative blood cultx - negative At home supposed to use 2L of suppl. O2 continuously Currently on 3LPM Cont. w/ ceftriaxone and doxycycline while inpt -->changed to cefdinir and azithromycin on DC Cont pulm toilet efforts Given CXR findings and elevated troponin, elevated proBNP, concern for poss. pulm. edema/ chf exacerbation Obtained chest CT to eval. lung parenchyma more closely and discussed w/ radiologist - per radiologist-not pulm. edema, and findings more c/w pulm. fibrosis Outpatient pulm follow-up recommended. She is already under the care of [facility] Pulmonology 2 step study obtained- pt to use 2L at rest and 4L on discharge (4) Acute metabolic encephalopathy: resolved (5) UTI (urinary tract infection): Klebsiella in urine, cont abx as above. Pt reports hx of recurrent UTIs (w/o dysuria or hematuria, asymptomatic) (6) ELSIE (acute kidney injury): baseline Cr about 1.4-1.5 Cr 2.6 on admission Now improved to baseline (7) Elevated troponin: Most likely demand ischemia in the setting of acute illness and ELSIE on CKD Pt reported no chest pain received ASA in ED troponin peaked at 0.3 echo obtained - no wall motion abnormality, EF 60-65% (8) Sleep apnea: (9) Morbid obesity: (10) Diabetes mellitus, type II: (11) DVT prophylaxis: Total Time Total Time Spent Total Time Spent (In Minutes): 40 Discharge Plan Discharge Items Patient Disposition: Home - Self-Care Reason For Visit: PNA,ELSIE Discharge Diagnosis: Sepsis 2/2 pneumonia, urinary tract infection Activity: Resume your previous activity Non-emergency contact: Primary Care Provider Call non-emergency contact if: you have any medication questions, your symptoms worsen and you have a fever Follow-up/Referrals: Kevin Whiteside DO [Primary Care Provider] - 09/29/21 11:00 am (Date & Time 09/29/2021 11:00 AM Provider Kevin Whiteside DO [facility] ) Diet: Carb Consistent or DM2 and Low Sodium (2gm) Addtl Attending Provider Instructions: You were admitted for pneumonia and urinary tract infection Please complete remainder of cefdinir and azithromycin (antibiotics) Please continue using home oxygen (2L at rest and 4L with exertion) and CPAP at night as before RECOMMENDATIONS FOR FOLLOW-UP: Please follow up with primary care provider Dr. Whiteside on 09/29/2021 at 11:00 AM. Continue following with [facility] and sleep medicine as an outpatient. Please use a pulse ox at home to monitor oxygen saturation. OTHER INSTRUCTIONS: Seek medical attention if you have: * temperature above 101 * chest pain or trouble breathing * abdominal pain, nausea, vomiting * diarrhea, dark stools or bloody stools * any unanswered questions or concerns Call 911 if symptoms are severe. Please take good care of yourself. Call if you have any questions or problems. You can reach a [facility] hospitalist on duty at [facility] 24 hours a day by calling [phone]. Pending Studies at Discharge: No Stand-Alone Forms: My [facility], Smoking Cessation Medications and DC Order Prescriptions: New cefdinir 300 mg capsule 300 mg PO BID Qty: 4 RF: 0 azithromycin 500 mg tablet 500 mg PO DAILY Qty: 2 RF: 0 Continued levothyroxine 200 mcg Tablet 200 mcg PO QAM RF: 0 omeprazole 20 mg Capsule,Delayed Release(Dr/Ec) 20 mg PO HS RF: 0 gabapentin 300 mg Capsule 300 mg PO TID RF: 0 furosemide [Lasix] 40 mg tablet 20 mg PO BID RF: 0 trazodone 50 mg tablet 50 mg PO HS RF: 0 magnesium oxide 400 mg (241.3 mg magnesium) Tablet 400 mg PO DAILY RF: 0 insulin aspart U-100 [Novolog U-100 Insulin aspart] 100 unit/mL solution 0 unit subcut ACHS RF: 0 colchicine 0.6 mg Tablet 0.3 mg PO DAILY RF: 0 duloxetine 30 mg Capsule,Delayed Release(Dr/Ec) 30 mg PO DAILY RF: 0 Tresiba FlexTouch U-100 100 unit/mL (3 mL) Insulin Pen 60 unit SUBCUT HS RF: 0 lidocaine 5 % Adhesive Patch,Medicated 1 patch transdermal HS Qty: 15 RF: 0 cyclobenzaprine 10 mg Tablet 10 mg PO HS PRN (Reason: Muscle Spasm) RF: 0 duloxetine 60 mg capsule,delayed release(DR/EC) 60 mg PO QAM RF: 0 potassium chloride 10 mEq tablet,ER particles/crystals 10 meq PO Q OTHER DAY RF: 0 tramadol 50 mg tablet 50 mg PO Q8H PRN (Reason: Pain) RF: 0 cholecalciferol (vitamin D3) 25 mcg (1,000 unit) Capsule 1,000 unit PO QAM Qty: 30 RF: 1 insulin aspart U-100 [Novolog Flexpen U-100 Insulin] 100 unit/mL (3 mL) insulin pen 40 unit SUBCUT WM RF: 0 Trulicity 3 mg/0.5 mL pen injector 3 mg SUBCUT WK RF: 0 dicyclomine 20 mg tablet 20 mg PO QID PRN (Reason: abdominal pain) RF: 0 nortriptyline [Pamelor] 50 mg capsule 50 mg PO HS RF: 0 levothyroxine 50 mcg tablet 50 mcg PO QAM RF: 0 docusate sodium [Colace] 100 mg capsule 100 mg PO BID PRN (Reason: Constipation) RF: 0 meclizine 12.5 mg tablet 12.5 mg PO TID PRN (Reason: Dizziness) RF: 0 clonazepam 0.5 mg Tablet 0.5 mg PO BID PRN (Reason: anxiety) Qty: 0 RF: 0 ropinirole 2 mg Tablet 2 mg PO HS RF: 0 Discharge Orders: Discharge Order (Routine); Ordered 09/25/21 Ordered By: Varsha Loya/Other Patient Handouts: Managing Type 2 Diabetes, CPAP, Preventing Common Respiratory ... Admission Data Admit Date/Time: 09/20/21 08:04 Attending Provider: Miguel Hampton Admit Provider: Miguel Hampton Primary Care Provider: Kevin Whiteside Other Providers: Juan Gr ; Erik Lenz ; Varsha Duncan ; Shantell Eli Other Interventions: Discharge Summary Assessment (RN) Last Done: 09/25/21 18:05 Supervising Physician Co-Signing Physician Notes Pt seen and examined by me, care coordinated w/ Jaylen Duncan PA-C, pls refer to her note above for further detail. I have edited the note to reflect summary of pt's hospital stay, my examination, findings, and plan for outpt follow up. Kassie Hampton MD
== END 2021-09-25 18:40 | disposition home or self-care (01) | DRG 871 ==
LOC: ED 05:40 → EDINP 08:04 → SUATTDRO 08:04 → 1E 21:54 → 3N 09-23 22:47

== ENCOUNTER 2022-06-10 10:15 | Inpatient (IN) ==
--- NOTE | 2022-06-10 10:34 | Emergency Department Note ---
Impression & Plan Pulmonary edema, Hypoxia, Acute UTI (urinary tract infection), DVT (deep venous thrombosis) ED Provider Note NAME: GEENA MAC AGE: 67 SEX: F : 1955 ARRIVES VIA: Ambulance INFORMANT: Patient, ED PROVIDER(S): Bright Rodriguez DO CHIEF COMPLAINT: Shortness of breath HPI: The patient is a 67-year-old female who presented to the emergency department by ambulance for shortness of breath. The patient states that over the course the last week she has been having significant shortness of breath. It worsens with exertion. She also notices lower extremity swelling. She denies having any hemoptysis. She denies having any chest pain. The patient was recently diagnosed with a DVT. She is taking Eliquis and states that she has been compliant with her outpatient medications. She has no history of pleasant. She went to see her doctor recently and had a COVID test but does not know the results of this. The patient has had no fever. She denies having any abdominal pain. ROS: See above HPI for pertinent positives & negatives. A total of 10 systems reviewed and were otherwise negative. PAST MEDICAL HISTORY: See Below PAST SURGICAL HISTORY: See Below FAMILY HISTORY: See Below SOCIAL HISTORY: See Below HOME MEDICATIONS: See Below ALLERGIES: See Below VITALS: See Below PHYSICAL EXAMINATION: GENERAL: Patient is awake alert in no acute distress patient is resting comfortably and showing no signs of anxiety EYES: The conjunctivae are clear. The pupils are round and reactive. EARS, NOSE, MOUTH AND THROAT: The nose is without any evidence of any deformity. Mucous membranes are moist. Tongue is midline. NECK: The neck is nontender and supple. RESPIRATORY: Shallow respirations were noted. Diminished breath sounds noted at both bases with rales. CARDIOVASCULAR: Regular rate and rhythm noted there no murmurs rubs or gallops normal S1 normal S2. GASTROINTESTINAL: The abdomen is soft. Abdomen is nontender. MUSCULOSKELETAL/EXTREMITIES: There is no evidence of gross deformity full range of motion is noted in the hips and shoulders. SKIN: Bilateral pedal edema was noted. Right greater than left. There is erythema noted in the right lower extremity as well as redness to the calf. NEUROLOGIC: Patient is awake alert and oriented x3 MEDICAL DECISION MAKING: A 67-year-old female who presented to the emergency department for an evaluation of shortness of breath. The patient had diminished breath sounds throughout. Chest x-ray appears to be consistent with pulmonary edema. The patient was found have no EKG changes but her troponin was elevated. I am concerned this could represent pulmonary edema from a cardiac source. I discussed the patient's laboratory and radiographic studies with her. She does have a DVT that is being treated with Eliquis. Her D-dimer is negative. Her creatinine was elevated so I do not feel she requires CT of the chest at this time but the Eliquis should be continued. Her condition was improved with supplemental oxygen. [facility] The patient may require further work-up to guide her treatment such as echocardiogram. Triage Nursing notes reviewed. Prior medical records reviewed Vital Signs: reviewed and remarkable for tachycardia. She was also hypoxic on room air. Differential diagnosis: Reactive airway disease, pneumonia, pneumothorax, COPD, CHF, infections, cardiac ischemia, pulmonary embolism, musculoskeletal, gastrointestinal, as well as other pathologies. ER treatment provided: See below Diagnostics interpreted by me: ECG: EKG was obtained in the emergency department. My interpretation is sinus tachycardia 109 bpm. There was no ectopy. There is no acute ST segment abnormalities noted. This was compared to a tracing from November 27, 2021. No changes were noted. Cardiac Monitoring: An order was placed for continuous cardiac monitoring. The monitor shows a rate of 114 bpm with sinus tachycardia. Laboratory studies: As stated above and show below. Imaging studies: See below Consultation(s): Discussed this case with Dr. Crooks who [facility] Past Med/Surg History Medical History Carotid stenosis, right CKD (chronic kidney disease), stage III Depression with anxiety Diabetes Diabetes mellitus, type II Fibromyalgia GERD (gastroesophageal reflux disease) History of DVT (deep vein thrombosis) History of pulmonary embolism s/p zoraida filter HIT (heparin-induced thrombocytopenia) HLD (hyperlipidemia) HTN (hypertension) Hypothyroidism Morbid obesity ELISSA on CPAP Presence of IVC filter RLS (restless legs syndrome) Sepsis Subclavian artery stenosis Surgical History History of cholecystectomy History of colon resection secondary to R colon perforation, resected treated with colostomy and eventual reversal in 2008, Dr. Lerma History of thyroidectomy, total History of total right knee replacement History of tracheostomy 2010, secondary to acute resp failure secondary to pneumonia, transferred to [facility] [place], [place] Family History Father , age 74 Lung cancer Mother , age 45 Cirrhosis Social History Smoking Status: Former smoker Cigarettes Per Day: 15 pack year hx; Second Hand Exposure: No; Hx Alcohol Use: Yes Alcohol type: wine Hx Substance Use: No Preferred Language: Urdu Communication Ability: Effective Energy Conservation Director Required: No Beliefs That Will Affect Care: None marital status: Single Current Living Situation: Alone How many Children do You have: 0 Feels Safe at Home: Yes Assistive Devices: Oxygen - Continuous Allergies Allergies Allergy/AdvReac Type Severity Reaction Status Date / Time morphine Allergy Severe VIOLENT Verified 12/26/21 00:54 REACTION-"ALMOST " SWELLING tetanus toxoid, adsorbed Allergy Intermediate PASSED OUT Verified 12/26/21 00:54 AND GOT SICK WHEN A CHILD bupropion [From Wellbutrin] AdvReac Intermediate Recurrent Verified 12/26/21 00:54 falls as per patient codeine AdvReac Intermediate Hallucinati Verified 12/26/21 00:54 ons empagliflozin AdvReac Intermediate YEAST Verified 12/26/21 00:54 [From Jardiance] INFECTIONS heparin AdvReac Intermediate HIT; FLUID Verified 12/26/21 00:54 IN LUNGS hydrocodone [From Vicodin] AdvReac Intermediate sleepiness Verified 12/26/21 00:54 Home Meds Home Medications Medication Instructions Recorded Confirmed levothyroxine 200 mcg tablet 200 mcg PO QAM 06/09/18 12/26/21 omeprazole 20 mg capsule,delayed 20 mg PO HS 06/09/18 12/26/21 release cyclobenzaprine 10 mg tablet 10 mg PO HS PRN Muscle Spasm 12/08/18 12/26/21 duloxetine 60 mg capsule,delayed 60 mg PO QAM 12/23/18 12/26/21 release gabapentin 300 mg capsule 300 mg PO TID 05/09/19 12/26/21 duloxetine 30 mg capsule,delayed 30 mg PO DAILY 01/25/20 12/26/21 release furosemide 40 mg tablet (Lasix) 20 mg PO BID 01/25/20 12/26/21 trazodone 50 mg tablet 50 mg PO HS 01/25/20 12/26/21 potassium chloride 10 mEq 10 meq PO Q OTHER DAY 03/10/20 12/26/21 tablet,extended release(part/cryst) tramadol 50 mg tablet 50 mg PO Q8H PRN Pain 07/19/20 12/26/21 insulin degludec 100 unit/mL (3 60 unit subcut HS 11/24/20 12/26/21 mL) subcutaneous pen (Tresiba FlexTouch U-100 insulin) dicyclomine 20 mg tablet 20 mg PO QID PRN abdominal pain 03/27/21 12/26/21 docusate sodium 100 mg capsule 100 mg PO BID PRN Constipation 03/27/21 12/26/21 (Colace) insulin aspart U-100 100 unit/mL 40 unit subcut WM 03/27/21 12/26/21 (3 mL) subcutaneous pen (Novolog Flexpen U-100 Insulin aspart) levothyroxine 50 mcg tablet 50 mcg PO QAM 03/27/21 12/26/21 meclizine 12.5 mg tablet 12.5 mg PO TID PRN Dizziness 03/27/21 12/26/21 nortriptyline 50 mg capsule 50 mg PO HS 03/27/21 12/26/21 (Pamelor) ropinirole 2 mg tablet 2 mg PO HS 09/20/21 12/26/21 dulaglutide 4.5 mg/0.5 mL 4.5 mg subcut WK 10/15/21 12/26/21 subcutaneous pen injector (Trulicity) apixaban 5 mg (74 tabs) tablets in 5 mg PO BID 12/26/21 12/26/21 a dose pack (Eliquis) Previous Rx's Medication Instructions Recorded clonazepam 0.5 mg tablet 0.5 mg PO BID PRN anxiety #0 tabs 03/28/21 Results & Data (ED) Vital Signs Vital Signs - 24 hr 06/10/22 10:51 06/10/22 10:51 06/10/22 10:29 Temperature 36.8 C Temperature Source Oral Pulse Rate 109 H 111 H Pulse Rate from SpO2 Sensor 115 H Respiratory Rate 28 H 26 H Respiratory Effort / Characteristics Non-Labored Spontaneous Non-Labored Respiratory Depth Normal Normal Respiratory Pattern Regular Tachypnea Blood Pressure 137/67 Blood Pressure Mean 90 Pulse Oximetry 86 L 95 Oxygen Delivery Method Nasal Cannula Oxygen Flow Rate 2 Sepsis Recent Fever Within 48 Hours No Sepsis New/Unexplained Change in Mental Status N/A Sepsis Action Taken by Nursing Physician Notified 06/10/22 10:30 06/10/22 11:00 06/10/22 11:00 Temperature Temperature Source Pulse Rate 114 H Pulse Rate from SpO2 Sensor 119 H 109 H Respiratory Rate 22 Respiratory Effort / Characteristics Respiratory Depth Respiratory Pattern Blood Pressure 127/71 Blood Pressure Mean 89 Pulse Oximetry 81 L 94 Oxygen Delivery Method Oxygen Flow Rate Sepsis Recent Fever Within 48 Hours Sepsis New/Unexplained Change in Mental Status Sepsis Action Taken by Nursing 06/10/22 11:15 06/10/22 11:15 06/10/22 11:30 Temperature Temperature Source Pulse Rate 114 H Pulse Rate from SpO2 Sensor 111 H 109 H Respiratory Rate 25 H 23 Respiratory Effort / Characteristics Respiratory Depth Respiratory Pattern Blood Pressure 98/79 L Blood Pressure Mean 85 Pulse Oximetry 85 L 90 Oxygen Delivery Method Oxygen Flow Rate Sepsis Recent Fever Within 48 Hours Sepsis New/Unexplained Change in Mental Status Sepsis Action Taken by [facility] Medications Current Medication List: was personally reviewed by me Laboratory Data Attestation: I reviewed the patient's lab results. Result diagrams: 06/10/22 11:50 06/10/22 11:50 Lab Results 06/10/22 06/10/22 06/10/22 Range/Units 11:15 11:50 11:50 WBC 13.23 H (4.8-10.8) K/ul RBC 4.27 (3.93-5.22) M/uL Hgb 13.2 (12.0-16.0) g/dl Hct 41.2 (34.1-44.9) % MCV 96.5 (80.0-100.0) fL MCH 30.9 (25.0-34.0) pg MCHC 32.0 (32.0-36.0) g/dL RDW Std Deviation 52.2 H (36.4-46.3) fL RDW Coeff of Adolfo 15.0 H (11.5-14.5) % Plt Count 282 (130-400) K/uL MPV 10.1 (9.4-12.3) fL Immature Gran % (Auto) 2.3 % Neut % (Auto) 80.5 % Lymph % (Auto) 10.2 % [place] % (Auto) 6.0 % Eos % (Auto) 0.5 % Baso % (Auto) 0.5 % Neut # (Auto) 10.65 H (1.4-6.5) K/uL Lymph # (Auto) 1.35 (1.2-3.4) K/uL [place] # (Auto) 0.80 (0.24-0.82) K/uL Eos # (Auto) 0.06 (0-0.50) K/uL Baso # (Auto) 0.07 (0-0.2) K/uL Immature Gran # (Auto) 0.30 H (0.00-0.02) K/uL PT 11.9 (9.0-12.0) Seconds INR 1.1 (0.9-1.1) APTT 27.3 (21.0-31.0) Seconds PTT Ratio 1.0 D-Dimer 490 (0-500) ug/L FEU Sodium (136-145) mmol/L Potassium (3.5-5.1) mmol/L Chloride (98-107) mmol/L Carbon Dioxide (21-32) mmol/L Anion Gap (3-11) BUN (6-23) mg/dl Creatinine (0.6-1.2) mg/dl Est Cr Clr Drug Dosing ml/min Est GFR ( Amer) ml/min Est GFR (Non-Af Amer) ml/min BUN/Creatinine Ratio (10-20) Glucose (70-99(Fasting)) mg/dl Calcium (8.5-10.1) mg/dl Magnesium (1.7-2.4) mg/dl Total Bilirubin (0.2-1.0) mg/dl AST (13-39) U/L ALT (7-52) U/L Alkaline Phosphatase (34-104) U/L Troponin I High Sens (0-14) pg/ml Total Protein (6.0-8.3) gm/dl Albumin (3.4-5.0) gm/dl Globulin (2.5-4.0) gm/dl Albumin/Globulin Ratio (0.9-2) Urine Color Yellow Urine Appearance Cloudy A (Clear) Urine pH 5.5 (4.5-7.5) Ur Specific [place] 1.017 (1.000-1.030) Urine Protein Trace H (Negative) Urine Glucose (UA) Negative (Negative) Urine Ketones Negative (Negative) Urine Blood 3+ H (Negative) Urine Nitrite Positive A (Negative) Urine Bilirubin Negative (Negative) Urine Urobilinogen Negative (Negative) Ur Leukocyte Esterase 2+ H (Negative) Urine WBC (Auto) >30 H (0-5) /hpf Urine RBC (Auto) 0-4 (0-4) /hpf U Hyaline Cast (Auto) 5-10 H (0-5) /lpf U Epithel Cells (Auto) >30 H (0-5) /lpf Urine Bacteria (Auto) 4+ H (Negative) Urine Yeast Not Reportable SARS-CoV-2 (PCR) (Negative) Influenza Type A (PCR) (Neg) Influenza Type B (PCR) (Neg) RSV (RT-PCR) (Neg) 06/10/22 06/10/22 Range/Units 11:50 11:55 WBC (4.8-10.8) K/ul RBC (3.93-5.22) M/uL Hgb (12.0-16.0) g/dl Hct (34.1-44.9) % MCV (80.0-100.0) fL MCH (25.0-34.0) pg MCHC (32.0-36.0) g/dL RDW Std Deviation (36.4-46.3) fL RDW Coeff of Adolfo (11.5-14.5) % Plt Count (130-400) K/uL MPV (9.4-12.3) fL Immature Gran % (Auto) % Neut % (Auto) % Lymph % (Auto) % [place] % (Auto) % Eos % (Auto) % Baso % (Auto) % Neut # (Auto) (1.4-6.5) K/uL Lymph # (Auto) (1.2-3.4) K/uL [place] # (Auto) (0.24-0.82) K/uL Eos # (Auto) (0-0.50) K/uL Baso # (Auto) (0-0.2) K/uL Immature Gran # (Auto) (0.00-0.02) K/uL PT (9.0-12.0) Seconds INR (0.9-1.1) APTT (21.0-31.0) Seconds PTT Ratio D-Dimer (0-500) ug/L FEU Sodium 135 L (136-145) mmol/L Potassium 4.7 (3.5-5.1) mmol/L Chloride 96 L (98-107) mmol/L Carbon Dioxide 28 (21-32) mmol/L Anion Gap 11 (3-11) BUN 29 H (6-23) mg/dl Creatinine 1.80 H (0.6-1.2) mg/dl Est Cr Clr Drug Dosing 47.0 ml/min Est GFR ( Amer) 33.2 ml/min Est GFR (Non-Af Amer) 28.6 ml/min BUN/Creatinine Ratio 16.1 (10-20) Glucose 322 H* (70-99(Fasting)) mg/dl Calcium 8.7 (8.5-10.1) mg/dl Magnesium 1.4 L (1.7-2.4) mg/dl Total Bilirubin 0.6 (0.2-1.0) mg/dl AST 105 H (13-39) U/L ALT 69 H (7-52) U/L Alkaline Phosphatase 83 (34-104) U/L Troponin I High Sens 54.2 H* (0-14) pg/ml Total Protein 7.1 (6.0-8.3) gm/dl Albumin 3.9 (3.4-5.0) gm/dl Globulin 3.2 (2.5-4.0) gm/dl Albumin/Globulin Ratio 1.2 (0.9-2) Urine Color Urine Appearance (Clear) Urine pH (4.5-7.5) Ur Specific [place] (1.000-1.030) Urine Protein (Negative) Urine Glucose (UA) (Negative) Urine Ketones (Negative) Urine Blood (Negative) Urine Nitrite (Negative) Urine Bilirubin (Negative) Urine Urobilinogen (Negative) Ur Leukocyte Esterase (Negative) Urine WBC (Auto) (0-5) /hpf Urine RBC (Auto) (0-4) /hpf U Hyaline Cast (Auto) (0-5) /lpf U Epithel Cells (Auto) (0-5) /lpf Urine Bacteria (Auto) (Negative) Urine Yeast SARS-CoV-2 (PCR) NEGATIVE (Negative) Influenza Type A (PCR) Negative (Neg) Influenza Type B (PCR) Negative (Neg) RSV (RT-PCR) Negative (Neg) Imaging Data Radiologist's Impression: Chest X-Ray 06/10/22 10:28 XR chest 1V portable CLINICAL HISTORY: Dyspnea TECHNIQUE: Single frontal radiograph of the chest was obtained. Comparison: Comparison is made to chest radiograph 11/27/[address] abdomen pelvis 12/26/2021 FINDINGS: No lines and tubes are seen. Cardiomegaly is noted. Calcified aortic arch is noted. There is prominence and cephalization of the vasculature with Paulette B lines seen. No evidence of pleural effusion or pneumothorax. IMPRESSION: Cardiomegaly and moderate pulmonary edema. ACT 112: Negative or not required by law. Electronically signed by: Mook Guido M.D. 06/10/2022 10:56 AM Discharge Plan Visit Data Chief Complaint: Shortness of Breath/Dyspnea Stated Complaint: SOB ED Provider: Bright Rodriguez Discharge Problem: Pulmonary edema, Hypoxia, Acute UTI (urinary tract infection), DVT (deep venous thrombosis) Patient Disposition: Being Evaluated by Hospitalist Forms Stand Alone Forms: My [facility] Prescriptions Prescriptions: No Action levothyroxine 200 mcg Tablet 200 mcg PO QAM Rx Instructions: TAKE ONE 200 MCG TABLET ALONG WITH ONE 50 MCG TABLET TO EQUAL 250 MCG DAILY DOSE omeprazole 20 mg Capsule,Delayed Release(Dr/Ec) 20 mg PO HS gabapentin 300 mg Capsule 300 mg PO TID furosemide [Lasix] 40 mg tablet 20 mg PO BID Rx Instructions: 1/2 tablet dose trazodone 50 mg tablet 50 mg PO HS duloxetine 30 mg Capsule,Delayed Release(Dr/Ec) 30 mg PO DAILY Rx Instructions: TOTAL DOSE 90 MG--TAKES WITH 60 MG CAP. Tresiba FlexTouch U-100 100 unit/mL (3 mL) Insulin Pen 60 unit SUBCUT HS cyclobenzaprine 10 mg Tablet 10 mg PO HS PRN (Reason: Muscle Spasm) duloxetine 60 mg capsule,delayed release(DR/EC) 60 mg PO QAM Rx Instructions: TOTAL DOSE 90 MG--TAKES WITH 30 MG CAP. potassium chloride 10 mEq tablet,ER particles/crystals 10 meq PO Q OTHER DAY tramadol 50 mg tablet 50 mg PO Q8H PRN (Reason: Pain) insulin aspart U-100 [Novolog Flexpen U-100 Insulin] 100 unit/mL (3 mL) insulin pen 40 unit SUBCUT WM Rx Instructions: plus sliding scale 1 unit for every 25 units bg >150 dicyclomine 20 mg tablet 20 mg PO QID PRN (Reason: abdominal pain) nortriptyline [Pamelor] 50 mg capsule 50 mg PO HS levothyroxine 50 mcg tablet 50 mcg PO QAM Rx Instructions: TOTAL DOSE 250 MCG--TAKES WITH 200 MCG TAB. docusate sodium [Colace] 100 mg capsule 100 mg PO BID PRN (Reason: Constipation) meclizine 12.5 mg tablet 12.5 mg PO TID PRN (Reason: Dizziness) clonazepam 0.5 mg Tablet 0.5 mg PO BID PRN (Reason: anxiety) Qty: 0 0RF ropinirole 2 mg Tablet 2 mg PO HS Trulicity 4.5 mg/0.5 mL pen injector 4.5 mg SUBCUT WK Rx Instructions: TAKE THIS MED EVERY TUESDAY. Eliquis 5 mg (74 tabs) tablets,dose pack 5 mg PO BID Referrals Referrals: Kevin Whiteside DO [Primary Care Provider] -
--- NOTE | 2022-06-10 10:58 | XRay Report ---
XR chest 1V portable CLINICAL HISTORY: Dyspnea TECHNIQUE: Single frontal radiograph of the chest was obtained. Comparison: Comparison is made to chest radiograph 11/27/[address] abdomen pelvis 12/26/2021 FINDINGS: No lines and tubes are seen. Cardiomegaly is noted. Calcified aortic arch is noted. There is prominen ce and cephalization of the vasculature with Paulette B lines seen. No evidence of pleural effusion or pneumothorax. IMPRESSION: Cardiomegaly and moderate pulmonary edema. ACT 112: Negative or not required by law. Electronically signed by: Mook Guido M.D. 06/10/2022 10:56 AM
[2022-06-10 11:36] LABS: Appearance Urine Cloudy (Clear); Bacteria Urine Automated 4+ (Negative); Bilirubin Urine Negative (Negative); Blood Urine 3+ (Negative); Color Urine Yellow; Epithelial Cell Urine Auto >30 /lpf (0-5); Glucose Urine UA Negative (Negative); Ketones Urine Negative (Negative); Leukocyte Esterase Urine 2+ (Negative); Nitrite Urine Positive (Negative); Protein Urine Trace (Negative); RBC Urine Automated 0-4 /hpf (0-4); Specific Gravity Urine 1.017 (1.000-1.030); Urobilinogen Urine Negative (Negative); WBC Urine Automated >30 /hpf (0-5); pH Urine 5.5 (4.5-7.5)
[2022-06-10 12:10] LABS: Basophils # (auto) 0.07 K/uL (0-0.2); Basophils % (auto) 0.5 %; Eosinophils # (auto) 0.06 K/uL (0-0.50); Eosinophils % (auto) 0.5 %; Hematocrit (blood only) 41.2 % (34.1-44.9); Hemoglobin 13.2 g/dl (12.0-16.0); Immature Granulocytes % (auto) 2.3 %; Lymphocytes # (auto) 1.35 K/uL (1.2-3.4); Lymphocytes % (auto) 10.2 %; Mean Corpuscular Hemoglobin 30.9 pg (25.0-34.0); Mean Corpuscular Volume 96.5 fL (80.0-100.0); Mean Platelet Volume 10.1 fL (9.4-12.3); Neutrophils # (auto) 10.65 K/uL (1.4-6.5); Neutrophils % (auto) 80.5 %; Platelet Count 282 K/uL (130-400); RDW Standard Deviation 52.2 fL (36.4-46.3); Red Blood Count 4.27 M/uL (3.93-5.22); White Blood Count 13.23 K/ul (4.8-10.8)
[2022-06-10 12:24] LABS: D Dimer 490 ug/L FEU (0-500); INR 1.1 (0.9-1.1); Partial Thromboplastin Time 27.3 Seconds (21.0-31.0); Prothrombin Time 11.9 Seconds (9.0-12.0)
[2022-06-10 12:40] LABS: Albumin Globulin Ratio 1.2 (0.9-2); Albumin Level 3.9 gm/dl (3.4-5.0); BUN Creatinine Ratio 16.1 (10-20); Bilirubin,Total 0.6 mg/dl (0.2-1.0); Calcium 8.7 mg/dl (8.5-10.1); Est GFR (African American) 33.2 ml/min; Est GFR (Non-African American) 28.6 ml/min; Globulin 3.2 gm/dl (2.5-4.0); Magnesium 1.4 mg/dl (1.7-2.4); Potassium 4.7 mmol/L (3.5-5.1); Total Protein 7.1 gm/dl (6.0-8.3); Troponin I High Sensitivity 54.2 pg/ml (0-14)
[2022-06-10] MEDS ORDERED: cefTRIAXone SODIUM 2,000 MG/70 ML BAG IV STA (12:41)
[2022-06-10 12:55] LABS: Influenza A virus by PCR Negative (Neg); Influenza B virus by PCR Negative (Neg); RSV by PCR Negative (Neg); SARS CoV2 RNA(COVID-19) InHosp NEGATIVE (Negative)
[2022-06-10 13:42] LABS: HCO3 VBG 33 mmol/L; Oxygen Saturation VBG < 60.0 %; PCO2 VBG 66 mmHg (38-50); PO2 VBG 28 mmHg
[2022-06-10] MEDS ORDERED: ACETAMINOPHEN 325 MG TAB ONE (13:48)
--- NOTE | 2022-06-10 14:05 | History & Physical Report ---
Date of Service June 10, 2022 Assessment & Plan (1) Acute on chronic diastolic heart failure: Plan: Presented with shortness of breath and requiring more oxygen for the last 2 weeks Chest x-ray evidence of pulmonary edema Likely due to acute on chronic diastolic heart failure Troponin slightly elevated likely secondary to his stress-induced elevation-we will get serial troponin No significant EKG changes to doubt any ACS Will need intravenous Lasix,Lasix 40mg IV x1 given today Will get echo of the heart Cardiology consulted (2) Acute UTI (urinary tract infection): Plan: UA suggestive of infection Denies any significant Urine culture has been sent Ceftriaxone has been started and will continue (3) DVT (deep venous thrombosis): Plan: History of recurrent DVT on Eliquis D-dimer has been negative Doubt any pulmonary embolism on Eliquis Will continue Eliquis (4) Obesity hypoventilation syndrome: Plan: Has obstructive sleep apnea Has been on CPAP at home with oxygen Will advised to use her own CPAP Chronic respiratory failure on home oxygen Requested 3 L of oxygen with Will monitor while in the hospital Will start doxycycline for possible infective exacerbation (5) Diabetes mellitus, type II: Plan: Has been on insulin Will put her on sliding scale on top of regular insulin and check hemoglobin A1c (6) CKD (chronic kidney disease), stage III: Plan: May have acute on chronic kidney impairment Will monitor BMP specially with the use of diuretic (7) ELISSA on CPAP: Plan: Continue with CPAP with oxygen (8) HTN (hypertension): Plan: We will continue her current medications (9) HLD (hyperlipidemia): Plan: Continue statin (10) Morbid obesity: (11) Hypothyroidism: Plan: Continue replacement DVT prophylaxis On Eliquis CODE STATUS Full History of Present Illness Chief Complaint: Increasing shortness of breath with chest tightness for the last 2 weeks Primary Care Provider: Kvein Whiteside DO She is a 67-year-old morbidly obese female with significant past medical history of chronic diastolic heart failure, hypertensive heart disease, type 2 diabetes on insulin, recurrent deep vein thrombosis on Eliquis, chronic hypoxemic respiratory failure, hyperlipidemia, ELISSA on CPAP at night with oxygen, restless leg syndrome and other medical condition as mentioned below apparently has been complaining of shortness of breath for the last 2 weeks. She also has chest tightness associated with it and she has been increasing her oxygen with ambulation from 3 to 4 to 5 L to improve her breathing. She has cough with minimal phlegm but denies any fever and or chills. She has chronic leg swelling and denies any increasing swelling for the last few weeks or so. She denies any headache, any abdominal pain nausea or vomiting or any problem with urine and bowel habit. She was recently prescribed with prednisone and doxycycline but has not been started yet. She was moderately short of breath in emergency room and apparent test showed that she has CHF/bronchitis and may have UTI. Her D-dimer was normal and troponin is mildly elevated. Will be admitted to telemetry unit for continuation of care. Allergies Allergy/AdvReac Type Severity Reaction Status Date / Time morphine Allergy Severe VIOLENT Verified 12/26/21 00:54 REACTION-"ALMOST " SWELLING tetanus toxoid, adsorbed Allergy Intermediate PASSED OUT Verified 12/26/21 00:54 AND GOT SICK WHEN A CHILD bupropion [From Wellbutrin] AdvReac Intermediate Recurrent Verified 12/26/21 00:54 falls as per patient codeine AdvReac Intermediate Hallucinati Verified 12/26/21 00:54 ons empagliflozin AdvReac Intermediate YEAST Verified 12/26/21 00:54 [From Jardiance] INFECTIONS heparin AdvReac Intermediate HIT; FLUID Verified 12/26/21 00:54 IN LUNGS hydrocodone [From Vicodin] AdvReac Intermediate sleepiness Verified 12/26/21 00:54 Home Medications Medication Instructions Recorded Confirmed Type levothyroxine 200 mcg tablet 200 mcg PO QAM 06/09/18 12/26/21 History omeprazole 20 mg capsule,delayed 20 mg PO HS 06/09/18 12/26/21 History release cyclobenzaprine 10 mg tablet 10 mg PO HS PRN Muscle Spasm 12/08/18 12/26/21 History duloxetine 60 mg capsule,delayed 60 mg PO QAM 12/23/18 12/26/21 History release gabapentin 300 mg capsule 300 mg PO TID 05/09/19 12/26/21 History duloxetine 30 mg capsule,delayed 30 mg PO DAILY 01/25/20 12/26/21 History release furosemide 40 mg tablet (Lasix) 20 mg PO BID 01/25/20 12/26/21 History trazodone 50 mg tablet 50 mg PO HS 01/25/20 12/26/21 History potassium chloride 10 mEq 10 meq PO Q OTHER DAY 03/10/20 12/26/21 History tablet,extended release(part/cryst) tramadol 50 mg tablet 50 mg PO Q8H PRN Pain 07/19/20 12/26/21 History insulin degludec 100 unit/mL (3 60 unit subcut HS 11/24/20 12/26/21 History mL) subcutaneous pen (Tresiba FlexTouch U-100 insulin) dicyclomine 20 mg tablet 20 mg PO QID PRN abdominal pain 03/27/21 12/26/21 History docusate sodium 100 mg capsule 100 mg PO BID PRN Constipation 03/27/21 12/26/21 History (Colace) insulin aspart U-100 100 unit/mL 40 unit subcut WM 03/27/21 12/26/21 History (3 mL) subcutaneous pen (Novolog Flexpen U-100 Insulin aspart) levothyroxine 50 mcg tablet 50 mcg PO QAM 03/27/21 12/26/21 History meclizine 12.5 mg tablet 12.5 mg PO TID PRN Dizziness 03/27/21 12/26/21 History nortriptyline 50 mg capsule 50 mg PO HS 03/27/21 12/26/21 History (Pamelor) clonazepam 0.5 mg tablet 0.5 mg PO BID PRN anxiety #0 tabs 03/28/21 12/26/21 Rx ropinirole 2 mg tablet 2 mg PO HS 09/20/21 12/26/21 History dulaglutide 4.5 mg/0.5 mL 4.5 mg subcut WK 10/15/21 12/26/21 History subcutaneous pen injector (Trulicity) apixaban 5 mg (74 tabs) tablets in 5 mg PO BID 12/26/21 12/26/21 History a dose pack (Eliquis) Past Med/Surg History Medical History Carotid stenosis, right CKD (chronic kidney disease), stage III Depression with anxiety Diabetes Diabetes mellitus, type II Fibromyalgia GERD (gastroesophageal reflux disease) History of DVT (deep vein thrombosis) History of pulmonary embolism s/p zoraida filter HIT (heparin-induced thrombocytopenia) HLD (hyperlipidemia) HTN (hypertension) Hypothyroidism Morbid obesity ELISSA on CPAP Presence of IVC filter RLS (restless legs syndrome) Sepsis Subclavian artery stenosis Surgical History History of cholecystectomy History of colon resection secondary to R colon perforation, resected treated with colostomy and eventual reversal in 2008, Dr. 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 Required: No Beliefs That Will Affect Care: None marital status: Single Current Living Situation: Alone How many Children do You have: 0 Other Information That Helps Us Care for You: No Feels Safe at Home: Yes Safety Concerns: Feels Safe At This Time Assistive Devices: Cane, CPAP, Glasses and Oxygen - Continuous Review of Systems Review of Systems: All systems reviewed and are unremarkable except as noted below Physical Exam Physical Exam: Lying in bed with moderate distress due to shortness of breath Constitutional: well developed, well nourished, + ill appearing and + morbidly obese Eyes: PERRL, conjunctivae normal, anicteric sclerae ENMT: external ear and nose normal, oropharynx normal Neck: trachea midline, no thyromegaly Minimal swelling of bilateral cervical nodes Respiratory: + respiratory distress (Mild to moderate distress at rest) Auscultation: + diminished lung sounds and + crackles (Bibasilar crackles more on the right than the left) Cardiovascular: Rate/Rhythm: regular rate, regular rhythm and + tachycardic Heart Sounds: normal S1 and normal S2; no murmur Extremities: + edema (1+ edema bilateral) Gastrointestinal (Abdomen): Inspection/Auscultation: + abdomen distended and normal bowel sounds Percussion/Palpation: + abdomen tender and abdomen soft Musculoskeletal: No acute arthritis in any joint Neurologic: Alert, awake and oriented x3. No focal sensory or no motor deficit appreciated Lymphatic: Mild enlargement of the cervical lymph nodes Results & Data Results & Data ([facility]) Vital Signs (Past 12 Hours) Vital Signs Temp Pulse Resp BP Pulse Ox O2 Del Method O2 Flow Rate 06/10/22 11:30 23 90 06/10/22 11:15 114 H 25 H 85 L 06/10/22 11:15 98/79 L 06/10/22 11:00 94 06/10/22 11:00 127/71 06/10/22 10:30 114 H 22 81 L 06/10/22 10:29 111 H 26 H 95 06/10/22 10:51 36.8 C 109 H 28 H 137/67 86 L Nasal Cannula 2 Laboratory Results Short CBC 06/10/22 Range/Units 11:50 WBC 13.23 H (4.8-10.8) K/ul Hgb 13.2 (12.0-16.0) g/dl Hct 41.2 (34.1-44.9) % Plt Count 282 (130-400) K/uL BMP 06/10/22 11:50 Sodium 135 L Potassium 4.7 Chloride 96 L Carbon Dioxide 28 BUN 29 H Creatinine 1.80 H Glucose 322 H* Calcium 8.7 Liver Function 06/10/22 Range/Units 11:50 Total Bilirubin 0.6 (0.2-1.0) mg/dl AST 105 H (13-39) U/L ALT 69 H (7-52) U/L Alkaline Phosphatase 83 (34-104) U/L Albumin 3.9 (3.4-5.0) gm/dl Urine 06/10/22 Range/Units 11:15 Urine Color Yellow Urine Appearance Cloudy A (Clear) Urine pH 5.5 (4.5-7.5) Ur Specific [place] 1.017 (1.000-1.030) Urine Protein Trace H (Negative) Urine Glucose (UA) Negative (Negative) Medications Administered Current Inpatient Medications Magnesium Sulfate/Dextrose (Magnesium Sulfate / D5w) 1 gm in 100 mls @ 100 mls/hr IV Q1H ROBERT Stop: 06/10/22 14:52 (1) DVT (deep venous thrombosis) Affected thrombotic vein of extremity: unspecified vein of extremity Chronicity: acute DVT location: lower extremity Laterality: right Qualified Code(s): I82.401 - Acute embolism and thrombosis of unspecified deep veins of right lower extremity
[2022-06-10] MEDS: MAGNESIUM SULFATE / D5W 1 GM/100 ML BAG IV SCH ×2 (14:30→18:00)
[2022-06-10] MEDS ORDERED: FUROSEMIDE 40 MG/4 ML VIAL IV ONE (15:00)
[2022-06-10] MEDS ORDERED: MECLIZINE 12.5 MG TAB PO PRN (16:13)
[2022-06-10] MEDS ORDERED: DICYCLOMINE HCL 20 MG TAB PO PRN (16:13)
[2022-06-10] MEDS ORDERED: DOCUSATE SODIUM 100 MG CAP PO PRN (16:13)
[2022-06-10] MEDS ORDERED: CYCLOBENZAPRINE HCL 10 MG TAB PO PRN (16:13)
[2022-06-10] MEDS ORDERED: GLUCOSE 10 TAB/TUBE PO PRN (16:45)
[2022-06-10] MEDS ORDERED: GLUCAGON FOR INJ 1 MG VIAL IM PRN (16:45)
[2022-06-10] MEDS ORDERED: CARBOHYDRATES FOR HYPOGLYCEMIA PO PRN (16:45)
[2022-06-10] MEDS ORDERED: GLUCOSE 40% GEL 15 GM TUBE PO PRN (16:45)
[2022-06-10] MEDS ORDERED: DEXTROSE 50% 50 ML SYRINGE IV PRN (16:45)
[2022-06-10] MEDS: GABAPENTIN 300 MG CAP PO SCH ×2 (18:01→21:11)
[2022-06-10] MEDS: INSULIN ASPART PER UNIT SC SCH ×2 (18:14→20:59)
[2022-06-10] MEDS: traMADol HCL 50 MG TABLET PO PRN (19:26)
[2022-06-10] MEDS: LANTUS PER UNIT CHARGE SQ SCH (21:00)
[2022-06-10] MEDS: traZODone HCL 50 MG TAB PO SCH (21:09)
[2022-06-10] MEDS: rOPINIRole HCL 2 MG TABLET PO SCH (21:10)
[2022-06-10] MEDS: NORTRIPTYLINE HCL 25 MG CAP PO SCH (21:10)
[2022-06-10] MEDS: DOXYCYCLINE HYCLATE 100 MG CAP PO SCH (21:11)
[2022-06-10] MEDS: APIXABAN 5 MG TABLET PO SCH (21:12)
[2022-06-11] MEDS: traMADol HCL 50 MG TABLET PO PRN ×2 (03:32→20:59)
--- NOTE | 2022-06-11 05:54 | Electrocardiogram Report ---
Test Reason : Blood Pressure : / mmHG Vent. Rate : 109 BPM Atrial Rate : 109 BPM P-R Int : 156 ms QRS Dur : 088 ms QT Int : 334 ms P-R-T Axes : 064 055 044 degrees QTc Int : 449 ms Sinus tachycardia Otherwise normal ECG When compared with ECG of 27-NOV-2021 18:38, No significant change was found Confirmed by Parish Julien ([id number]) on 06/11/2022 5:54:18 AM Referred By: REFERRED SELF Confirmed By:Parish Julien
--- NOTE | 2022-06-11 08:45 | Cardiology Consultation ---
Date of Consultation June 11, 2022 Assessment & Plan (1) Acute respiratory failure with hypoxia: (2) Obesity hypoventilation syndrome: (3) Acute on chronic diastolic HF (heart failure): (4) Pulmonary edema: (5) Acute UTI (urinary tract infection): (6) Elevated troponin: (7) HTN (hypertension): Plan Patient admitted with worsening hypoxia, acute on chronic respiratory failure with evidence of pulm edema/volume overload consistent with acute on chronic diastolic HF. Creatinine improved overnight with IV lasix. Resume furosemide 40 mg IV BID today. Supplement potassium. Monitor I+O's. Daily weight with standing scale. She is hypertensive, but hopeful with ongoing diuresis and oral meds, her BP will improve. She has minimally elevated troponin, likely due to CHF exacerbation, hypoxia. Echo result is pending. No acute EKG changes. No complaints of chest pain. Continue antibiotics for UTI per hospitalist. Case discussed with Dr. Cevallos. Will follow. Supervising Physician Co-Signing Physician Notes Supervising Physician Attestation: I have personally performed a history and physical examination on the patient. I agree with the physician telecom assistant's findings and plan as documented with the following additions. Subjective: Patient was acute on chronic right greater than left lower extremity edema. Recent sensation of "feeling disoriented, walking into poe. Telemetry reveals sinus rhythm and sinus tachycardia. Gram-negative bacilli noted on urine culture. Exam: Pulmonary: Decreased breath sounds at the bases, Cardiovascular left greater than right lower extremity edema Data: Creatinine 1.8 on admission, down to 1.49 today Assessment and Plan: Acute on chronic diastolic heart failure, UTI -Furosemide 40 mg IV twice daily -Defer antibiotic treatment to Dr. Crooks of the hospital service DVT prophylaxis: Patient is on chronic Eliquis 5 mg twice daily, seemingly due to past history of pulm embolism. Follow renal function with regards to dosing Kedar Cevallos, History of Present Illness Reason for Consultation: CHF Requesting Physician: Dr. Crooks History of Present Illness Patient is a 67 year old female who is known to [facility], Dr. Woodall. History includes: 1.Morbid obesity. 2.Obstructive sleep apnea/possible interstitial lung disease on CPAP supplementation and oxygen supplementation 3.Hypertension. 4.Type 2 diabetes mellitus. 5.Chronic fibromyalgia. 6.History of bilateral pneumonia with extensive hospitalization in 2008 requiring extended intubation, Arcata filter implantation with pulmonary embolus. 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 8. Chronic diastolic heart failure multiple factorial etiology 9. Chronic renal insufficiency Patient presented to [facility] yesterday with complaints of worsening SOB and confusion. She reports she was "walking into the poe" at her house and felt disoriented. She also reports worsening dyspnea/SOB and requiring higher flow oxygen over the last few days to alleviate her symptoms. She reports progressive weight gain and worsening edema but is unable to report how much weight gain. Per review of outpatient records, she may be about 6-10 kg above baseline. She reports compliance with meds. She takes metolazone PRN. Last dose was several weeks ago for worsening SOB/edema and she reports her symptoms improved. She did not attempt a dose of metolazone this week for recurrent symptoms. Upon ER evaluation, chest xray revealed pulmonary edema. BP has been elevated since admission. EKG without acute changes. She denied chest pain. Minimal elevation of HS but no symptoms to suggest ACS. Echo is pending. She was found to have UTI. Started on antibiotics. Started on furosemide IV. At time of consult, patient resting in bed. Reports ongoing dyspnea/SOB. Still requiring higher flow oxygen than her baseline. ongoing edema noted. no chest pain. No dizziness. No dysuria. Allergies Allergy/AdvReac Type Severity Reaction Status Date / Time morphine Allergy Severe VIOLENT Verified 12/26/21 00:54 REACTION-"ALMOST " SWELLING tetanus toxoid, adsorbed Allergy Intermediate PASSED OUT Verified 12/26/21 00:54 AND GOT SICK WHEN A CHILD bupropion [From Wellbutrin] AdvReac Intermediate Recurrent Verified 12/26/21 00:54 falls as per patient codeine AdvReac Intermediate Hallucinati Verified 12/26/21 00:54 ons empagliflozin AdvReac Intermediate YEAST Verified 12/26/21 00:54 [From Jardiance] INFECTIONS heparin AdvReac Intermediate HIT; FLUID Verified 12/26/21 00:54 IN LUNGS hydrocodone [From Vicodin] AdvReac Intermediate sleepiness Verified 12/26/21 00:54 Home Medications Medication Instructions Recorded Confirmed Type levothyroxine 200 mcg tablet 200 mcg PO QAM 06/09/18 12/26/21 History omeprazole 20 mg capsule,delayed 20 mg PO HS 06/09/18 12/26/21 History release cyclobenzaprine 10 mg tablet 10 mg PO HS PRN Muscle Spasm 12/08/18 12/26/21 History duloxetine 60 mg capsule,delayed 60 mg PO QAM 12/23/18 12/26/21 History release gabapentin 300 mg capsule 300 mg PO TID 05/09/19 12/26/21 History duloxetine 30 mg capsule,delayed 30 mg PO DAILY 01/25/20 12/26/21 History release furosemide 40 mg tablet (Lasix) 20 mg PO BID 01/25/20 12/26/21 History trazodone 50 mg tablet 50 mg PO HS 01/25/20 12/26/21 History potassium chloride 10 mEq 10 meq PO Q OTHER DAY 03/10/20 12/26/21 History tablet,extended release(part/cryst) tramadol 50 mg tablet 50 mg PO Q8H PRN Pain 07/19/20 12/26/21 History insulin degludec 100 unit/mL (3 60 unit subcut HS 11/24/20 12/26/21 History mL) subcutaneous pen (Tresiba FlexTouch U-100 insulin) dicyclomine 20 mg tablet 20 mg PO QID PRN abdominal pain 03/27/21 12/26/21 History docusate sodium 100 mg capsule 100 mg PO BID PRN Constipation 03/27/21 12/26/21 History (Colace) insulin aspart U-100 100 unit/mL 40 unit subcut WM 03/27/21 12/26/21 History (3 mL) subcutaneous pen (Novolog Flexpen U-100 Insulin aspart) levothyroxine 50 mcg tablet 50 mcg PO QAM 03/27/21 12/26/21 History meclizine 12.5 mg tablet 12.5 mg PO TID PRN Dizziness 03/27/21 12/26/21 History nortriptyline 50 mg capsule 50 mg PO HS 03/27/21 12/26/21 History (Pamelor) clonazepam 0.5 mg tablet 0.5 mg PO BID PRN anxiety #0 tabs 03/28/21 12/26/21 Rx ropinirole 2 mg tablet 2 mg PO HS 09/20/21 12/26/21 History dulaglutide 4.5 mg/0.5 mL 4.5 mg subcut WK 10/15/21 12/26/21 History subcutaneous pen injector (Trulicity) apixaban 5 mg (74 tabs) tablets in 5 mg PO BID 12/26/21 12/26/21 History a dose pack (Eliquis) Patient History Medical History Carotid stenosis, right CKD (chronic kidney disease), stage III Depression with anxiety Diabetes Diabetes mellitus, type II Fibromyalgia GERD (gastroesophageal reflux disease) History of DVT (deep vein thrombosis) History of pulmonary embolism s/p zoraida filter HIT (heparin-induced thrombocytopenia) HLD (hyperlipidemia) HTN (hypertension) Hypothyroidism Morbid obesity ELISSA on CPAP Presence of IVC filter RLS (restless legs syndrome) Sepsis Subclavian artery stenosis Surgical History History of cholecystectomy History of colon resection secondary to R colon perforation, resected treated with colostomy and eventual reversal in 2008, Dr. Lerma History of thyroidectomy, total History of total right knee replacement History of tracheostomy 2010, secondary to acute resp failure secondary to pneumonia, transferred to [facility] Family History Father , age 74 Lung cancer Mother , age 45 Cirrhosis Social History Smoking Status: Former smoker Cigarettes Per Day: 15 pack year hx; Second Hand Exposure: No; Hx Alcohol Use: Yes Alcohol type: wine Hx Substance Use: No Preferred Language: Syrian Communication Ability: Effective [employer] Required: No Beliefs That Will Affect Care: None marital status: Single Current Living Situation: Alone How many Children do You have: 0 Other Information That Helps Us Care for You: No Feels Safe at Home: Yes Safety Concerns: Feels Safe At This Time Assistive Devices: Cane, CPAP, Oxygen - Continuous and Walker Review of Systems Review of Systems: All systems reviewed & are unremarkable except as noted in HPI & below Physical Exam Constitutional: WD/WN, vitals as above + morbidly obese; no acute distress Neck: + thick neck Respiratory: + tachypneic Auscultation: + diminished lung sounds and + crackles Cardiovascular: Rate/Rhythm: regular rate and regular rhythm Heart Sounds: no murmur (distant heart sounds) Extremities: + edema (1+ b/l LE) Gastrointestinal (Abdomen): normal bowel sounds, soft, nontender, no hepatosplenomegaly Inspection/Auscultation: + significant pannus Skin: no rashes, warm and dry Neurologic: PERRL, EOMI, accommodation nl, no face palsy, no dysarthria Results & Data ([facility]) Vital Signs (Past 12 Hours) Vital Signs Temp Pulse Pulse Resp BP Pulse Ox O2 Del Method 06/11/22 07:31 36.5 C 89 18 176/77 H 96 Nasal Cannula 06/11/22 07:22 105 H 06/11/22 04:33 37.0 C 98 H 20 146/71 H 99 Nasal Cannula 06/10/22 23:58 96 H 20 94 06/10/22 23:10 37.4 C 99 H 20 143/83 H 97 Nasal Cannula 06/10/22 22:58 96 H 06/10/22 22:27 Nasal Cannula O2 Flow Rate 06/11/22 07:31 6 06/11/22 07:22 06/11/22 04:33 6.0 06/10/22 23:58 6 06/10/22 23:10 6.0 06/10/22 22:58 06/10/22 22:27 6 Laboratory Results Cardiac Enzymes 06/10/22 06/10/22 06/10/22 Range/Units 11:50 17:47 23:55 AST 105 H (13-39) U/L Troponin I High Sens 54.2 H* 103.0 H* D 90.9 H* D (0-14) pg/ml Coagulation 06/10/22 Range/Units 11:50 PT 11.9 (9.0-12.0) Seconds APTT 27.3 (21.0-31.0) Seconds CBC 06/10/22 Range/Units 11:50 WBC 13.23 H (4.8-10.8) K/ul RBC 4.27 (3.93-5.22) M/uL Hgb 13.2 (12.0-16.0) g/dl Hct 41.2 (34.1-44.9) % Plt Count 282 (130-400) K/uL Neut # (Auto) 10.65 H (1.4-6.5) K/uL Lymph # (Auto) 1.35 (1.2-3.4) K/uL [place] # (Auto) 0.80 (0.24-0.82) K/uL Eos # (Auto) 0.06 (0-0.50) K/uL Baso # (Auto) 0.07 (0-0.2) K/uL Comprehensive Metabolic Panel 06/10/22 Range/Units 11:50 Sodium 135 L (136-145) mmol/L Potassium 4.7 (3.5-5.1) mmol/L Chloride 96 L (98-107) mmol/L Carbon Dioxide 28 (21-32) mmol/L BUN 29 H (6-23) mg/dl Creatinine 1.80 H (0.6-1.2) mg/dl Glucose 322 H* (70-99(Fasting)) mg/dl Calcium 8.7 (8.5-10.1) mg/dl AST 105 H (13-39) U/L ALT 69 H (7-52) U/L Alkaline Phosphatase 83 (34-104) U/L Total Protein 7.1 (6.0-8.3) gm/dl Albumin 3.9 (3.4-5.0) gm/dl Intake and Output 06/10/22 06/11/22 06/11/22 22:59 06:59 14:59 Intake Total 270 / 270 Output Total 500 / 500 Balance 270 / -230 -500 / -230 Intake: IV 270 / 270 Magnesium Sulfate / D5w 1 gm In 200 / 200 100 ml @ 100 mls/hr IV Q1H ROBERT Rx#:[id number] cefTRIAXone SODIUM 2,000 mg In 70 / 70 70 ml @ 140 mls/hr IV NOW STA Rx#:[id number] Output: Urine 500 / 500 Other: # Unmeasured Voids 1 Weight 160 kg Weight Measurement Method Chair Scale Diagnostic Findings EKG on admission 06/10/22: Sinus tachycardia, no acute changes. Chest xray reviewed from admission: IMPRESSION: Cardiomegaly and moderate pulmonary edema. Echo report reviewed dated 09/15: LV chamber size with mild concentric LVH Normal LV systolic function with EF 60-65% No segmental LV wall motion abnormalities are noted. Grade I diastolic dysfunction. Moderate aortic valve sclerosis without stenosis. Calcified mitral apparatus causing mitral stenosis. There is no mitral valve stenosis Aortic valve sclerosis moderate, without significant aortic valvular stenosis. Medications Administered Current Inpatient Medications Apixaban (Apixaban 5 Mg Tablet) 5 mg PO BID ROBERT Stop: 07/10/22 20:59 Last Admin: 06/10/22 21:12 Dose: 5 mg Clonazepam (Clonazepam 0.5 Mg Tab) 0.5 mg PO BID PRN PRN Reason: anxiety Stop: 07/10/22 16:12 Cyclobenzaprine HCl (Cyclobenzaprine Hcl 10 Mg Tab) 10 mg PO HS PRN PRN Reason: Muscle Spasm Stop: 07/10/22 16:12 Last Admin: 06/10/22 23:16 Dose: 10 mg Dextrose (Dextrose 50% 50 Ml Syringe) 25 - 50 ml IV UD PRN; Protocol PRN Reason: Hypoglycemia Protocol Stop: 07/10/22 16:44 Dicyclomine HCl (Dicyclomine Hcl 20 Mg Tab) 20 mg PO QID PRN PRN Reason: abdominal pain Stop: 07/10/22 16:12 Docusate Sodium (Docusate Sodium 100 Mg Cap) 100 mg PO BID PRN PRN Reason: Constipation Stop: 07/10/22 16:12 Doxycycline Hyclate (Doxycycline Hyclate 100 Mg Cap) 100 mg PO BID ROBERT Stop: 06/17/22 20:59 Last Admin: 06/10/22 21:11 Dose: 100 mg Duloxetine HCl (Duloxetine Hcl 30 Mg Cap) 30 mg PO DAILY ROBERT Stop: 07/11/22 08:59 Duloxetine HCl (Duloxetine Hcl 60 Mg Cap) 60 mg PO QAM ROBERT Stop: 07/11/22 08:59 Gabapentin (Gabapentin 300 Mg Cap) 300 mg PO TID ROBERT Stop: 07/10/22 16:44 Last Admin: 06/10/22 21:11 Dose: 300 mg Glucagon (Glucagon For Inj 1 Mg Vial) 1 mg IM UD PRN; Protocol PRN Reason: Hypoglycemia Protocol Stop: 07/10/22 16:44 Glucose (Glucose 40% Gel 15 Gm Tube) 15 - 30 gm PO UD PRN; Protocol PRN Reason: Hypoglycemia Protocol Stop: 07/10/22 16:44 Glucose (Glucose 10 Tab/Tube) 4 - 8 tab PO UD PRN; Protocol PRN Reason: Hypoglycemia Protocol Stop: 07/10/22 16:44 Insulin Aspart (Insulin Aspart Per Unit) 0 units SC ACHS ROBERT Stop: 07/10/22 16:44 Last Admin: 06/10/22 20:59 Dose: 6 units Insulin Glargine (Lantus Per Unit Charge) 40 units SQ HS [facility] Stop: 07/10/22 20:59 Last Admin: 06/10/22 21:00 Dose: 40 units Levothyroxine Sodium (Levothyroxine Sodium 200 Mcg Tablet) 200 mcg PO QAM [facility] Stop: 07/11/22 08:59 Levothyroxine Sodium (Levothyroxine Sodium 50 Mcg Tablet) 50 mcg PO QAM [facility] Stop: 07/11/22 08:59 Meclizine HCl (Meclizine 12.5 Mg Tab) 12.5 mg PO TID PRN PRN Reason: Dizziness Stop: 07/10/22 16:12 Miscellaneous (*Trulicity*Order Awaiting Action) 1 each N/A QS [facility] Stop: 07/11/22 00:00 Last Admin: 06/10/22 23:36 Dose: Not Given Miscellaneous (Carbohydrates For Hypoglycemia ) 15 - 30 gm PO UD PRN PRN Reason: Hypoglycemia Treatment Stop: 07/10/22 16:44 Nortriptyline HCl (Nortriptyline Hcl 25 Mg Cap) 50 mg PO [facility] Stop: 07/10/22 20:59 Last Admin: 06/10/22 21:10 Dose: 50 mg Potassium Chloride (Potassium Chloride 10 Meq Tabcr) 10 meq PO Q2D [facility] Stop: 07/11/22 08:59 Ropinirole HCl (Ropinirole Hcl 2 Mg Tablet) 2 mg PO HS [facility] Stop: 07/10/22 20:59 Last Admin: 06/10/22 21:10 Dose: 2 mg Tramadol HCl (Tramadol Hcl 50 Mg Tablet) 50 mg PO Q8H PRN PRN Reason: Pain Stop: 07/10/22 16:12 Last Admin: 06/11/22 03:32 Dose: 50 mg Trazodone HCl (Trazodone Hcl 50 Mg Tab) 50 mg PO HS [facility] Stop: 07/10/22 20:59 Last Admin: 06/10/22 21:09 Dose: 50 mg (1) Pulmonary edema Chronicity: acute Qualified Code(s): J81.0 - Acute pulmonary edema
[2022-06-11 08:50] LABS: Basophils % (auto) 0.8 %; Eosinophils # (auto) 0.66 K/uL (0-0.50); Eosinophils % (auto) 5.2 %; Hematocrit (blood only) 39.5 % (34.1-44.9); Hemoglobin 11.9 g/dl (12.0-16.0); Immature Granulocytes # (auto) 0.13 K/uL (0.00-0.02); Lymphocytes # (auto) 1.71 K/uL (1.2-3.4); Lymphocytes % (auto) 13.3 %; Mean Corpuscular Hemoglobin 29.8 pg (25.0-34.0); Mean Corpuscular Hgb Conc 30.1 g/dL (32.0-36.0); Mean Platelet Volume 10.1 fL (9.4-12.3); Monocytes # (auto) 0.87 K/uL (0.24-0.82); Monocytes % (auto) 6.8 %; Neutrophils # (auto) 9.34 K/uL (1.4-6.5); Neutrophils % (auto) 72.9 %; Platelet Count 258 K/uL (130-400); RDW Coefficient of Variation 14.7 % (11.5-14.5); RDW Standard Deviation 53.1 fL (36.4-46.3); Red Blood Count 3.99 M/uL (3.93-5.22); White Blood Count 12.81 K/ul (4.8-10.8)
[2022-06-11] MEDS: INSULIN ASPART PER UNIT SC SCH ×4 (08:53→20:47)
[2022-06-11] MEDS: GABAPENTIN 300 MG CAP PO SCH ×3 (08:54→20:57)
[2022-06-11] MEDS: DOXYCYCLINE HYCLATE 100 MG CAP PO SCH ×2 (08:54→20:58)
[2022-06-11] MEDS: APIXABAN 5 MG TABLET PO SCH ×2 (08:54→20:55)
[2022-06-11] MEDS: DULoxetine HCL 60 MG CAP PO SCH (08:55)
[2022-06-11] MEDS: DULoxetine HCL 30 MG CAP PO SCH (08:55)
[2022-06-11] MEDS: LEVOTHYROXINE SODIUM 200 MCG TABLET PO SCH (08:55)
[2022-06-11] MEDS: LEVOTHYROXINE SODIUM 50 MCG TABLET PO SCH (08:55)
[2022-06-11] MEDS: clonazePAM 0.5 MG TAB PO PRN (09:00)
[2022-06-11] MEDS ORDERED: POTASSIUM CHLORIDE 10 MEQ TABCR PO SCH (09:00)
[2022-06-11 09:14] LABS: Albumin Globulin Ratio 1.2 (0.9-2); Albumin Level 3.9 gm/dl (3.4-5.0); BUN Creatinine Ratio 16.8 (10-20); Bilirubin,Total 0.6 mg/dl (0.2-1.0); Calcium 8.9 mg/dl (8.5-10.1); Creatinine Clr Calc Pharmacy 56.8 ml/min; Est GFR (African American) 41.7 ml/min; Globulin 3.3 gm/dl (2.5-4.0); Magnesium 1.7 mg/dl (1.7-2.4); Phosphorus 3.2 mg/dl (2.5-4.9); Potassium 3.9 mmol/L (3.5-5.1); Total Protein 7.2 gm/dl (6.0-8.3)
[2022-06-11] MEDS ORDERED: traMADol HCL 50 MG TABLET PO PRN (10:55)
[2022-06-11] MEDS: POTASSIUM CHLORIDE CRTAB 20 MEQ TABCR PO SCH (11:08)
[2022-06-11] MEDS: FUROSEMIDE 40 MG TAB PO SCH ×2 (11:09→16:07)
[2022-06-11] MEDS ORDERED: MoRPHine SULFATE 4 MG/ML 1 ML CARP\\VIAL IV STA (13:24)
[2022-06-11] MEDS: ACETAMINOPHEN 500 MG TAB PO PRN (16:07)
--- NOTE | 2022-06-11 16:49 | Hospitalist Progress Note ---
Date of Service June 11, 2022 Assessment & Plan (1) Acute on chronic diastolic heart failure: Plan: Presented with shortness of breath and requiring more oxygen for the last 2 weeks Chest x-ray evidence of pulmonary edema Likely due to acute on chronic diastolic heart failure Troponin slightly elevated likely secondary to his stress-induced elevation-we will get serial troponin No significant EKG changes to doubt any ACS Will need intravenous Lasix,Lasix 40mg IV x1 given today Echo of the heart showed-no regional wall motion abnormalities, LV is hyperdynamic, EF was more than 70%, RV is grossly normal, RV function is normal, grade 1 diastolic dysfunction, no significant valvular stenosis Cardiology consulted-appreciate input and recommendation Started on Lasix 40 mg IV twice daily We will monitor PRP (2) Acute UTI (urinary tract infection): Plan: UA suggestive of infection Denies any significant Urine culture has been sent-has been growing gram-negative bacilli and the sensitivities pending Ceftriaxone has been started and will continue (3) DVT (deep venous thrombosis): Plan: History of recurrent DVT on Eliquis D-dimer has been negative Doubt any pulmonary embolism on Eliquis Will continue Eliquis (4) Obesity hypoventilation syndrome: Plan: Has obstructive sleep apnea Has been on CPAP at home with oxygen Will advised to use her own CPAP Chronic respiratory failure on home oxygen Requested 3 L of oxygen with Will monitor while in the hospital Will start doxycycline for possible infective exacerbation (5) Diabetes mellitus, type II: Plan: Has been on insulin Will put her on sliding scale on top of regular insulin and check hemoglobin A1c (6) CKD (chronic kidney disease), stage III: Plan: May have acute on chronic kidney impairment Will monitor BMP specially with the use of diuretic (7) ELISSA on CPAP: Plan: Continue with CPAP with oxygen (8) HTN (hypertension): Plan: We will continue her current medications (9) HLD (hyperlipidemia): Plan: Continue statin (10) Morbid obesity: (11) Hypothyroidism: Plan: Continue replacement Chronic pain Has been taking Tylenol and Ultram as an outpatient Pain seems to be increased She cannot take any other narcotics except Ultram Will increase the dose of Ultram 100 mg every 8 hourly as needed while she is in the hospital DVT prophylaxis On Eliquis CODE STATUS Full Admission and Anticipated Discharge Date Admission Date: June 10, 2022 Subjective 06/11/2022 The patient was seen and examined in telemetry unit She has been feeling a little better but complains to have pain all over the body She denies any fever and or chills and denies any problem with urination No chest pain and/or palpitation Review of Systems Review of Systems: All systems reviewed and are unremarkable except as noted below Respiratory: No shortness of breath Physical Exam Physical Exam: Lying in bed with moderate distress due to shortness of breath Constitutional: well developed, well nourished, + ill appearing and + morbidly obese Eyes: PERRL, conjunctivae normal, anicteric sclerae ENMT: external ear and nose normal, oropharynx normal Neck: trachea midline, no thyromegaly Respiratory: + respiratory distress (Mild to moderate distress at rest) Auscultation: + diminished lung sounds and + crackles (Bibasilar crackles more on the right than the left) Cardiovascular: Rate/Rhythm: regular rate, regular rhythm and + tachycardic Heart Sounds: normal S1 and normal S2; no murmur Extremities: + edema (1+ edema bilateral) Gastrointestinal (Abdomen): Inspection/Auscultation: + abdomen distended and normal bowel sounds Percussion/Palpation: + abdomen tender and abdomen soft Musculoskeletal: No acute arthritis in any joint Neurologic: normal touch/pain/proprioception and moves all extremities; no focal motor deficits Psychiatric: A+Ox3, euthymic affect Lymphatic: no cervical or axillary lymphadenopathy Results & Data Results & Data ([facility]) Vital Signs (Past 12 Hours) Vital Signs Temp Pulse Pulse Resp BP Pulse Ox O2 Del Method 06/11/22 15:37 37.2 C 92 H 17 118/68 94 Nasal Cannula 06/11/22 15:00 95 H 06/11/22 11:02 36.6 C 92 H 22 162/70 H 92 Nasal Cannula 06/11/22 07:31 36.5 C 89 18 176/77 H 96 Nasal Cannula 06/11/22 07:22 105 H O2 Flow Rate 06/11/22 15:37 6 06/11/22 15:00 06/11/22 11:02 6 06/11/22 07:31 6 06/11/22 07:22 Laboratory Results Short CBC 06/11/22 Range/Units 08:39 WBC 12.81 H (4.8-10.8) K/ul Hgb 11.9 L (12.0-16.0) g/dl Hct 39.5 (34.1-44.9) % Plt Count 258 (130-400) K/uL BMP 06/11/22 08:39 Sodium 135 L Potassium 3.9 Chloride 97 L Carbon Dioxide 30 BUN 25 H Creatinine 1.49 H D Glucose 240 H Calcium 8.9 Liver Function 06/11/22 Range/Units 08:39 Total Bilirubin 0.6 (0.2-1.0) mg/dl AST 49 H (13-39) U/L ALT 62 H (7-52) U/L Alkaline Phosphatase 78 (34-104) U/L Albumin 3.9 (3.4-5.0) gm/dl Medications Administered Current Inpatient Medications Acetaminophen (Acetaminophen 500 Mg Tab) 1,000 mg PO Q6H PRN PRN Reason: Pain Stop: 07/11/22 15:52 Last Admin: 06/11/22 16:07 Dose: 1,000 mg Apixaban (Apixaban 5 Mg Tablet) 5 mg PO BID ROBERT Stop: 07/10/22 20:59 Last Admin: 06/11/22 08:54 Dose: 5 mg Clonazepam (Clonazepam 0.5 Mg Tab) 0.5 mg PO BID PRN PRN Reason: anxiety Stop: 07/10/22 16:12 Last Admin: 06/11/22 09:00 Dose: 0.5 mg Cyclobenzaprine HCl (Cyclobenzaprine Hcl 10 Mg Tab) 10 mg PO HS PRN PRN Reason: Muscle Spasm Stop: 07/10/22 16:12 Last Admin: 06/10/22 23:16 Dose: 10 mg Dextrose (Dextrose 50% 50 Ml Syringe) 25 - 50 ml IV UD PRN; Protocol PRN Reason: Hypoglycemia Protocol Stop: 07/10/22 16:44 Dicyclomine HCl (Dicyclomine Hcl 20 Mg Tab) 20 mg PO QID PRN PRN Reason: abdominal pain Stop: 07/10/22 16:12 Docusate Sodium (Docusate Sodium 100 Mg Cap) 100 mg PO BID PRN PRN Reason: Constipation Stop: 07/10/22 16:12 Doxycycline Hyclate (Doxycycline Hyclate 100 Mg Cap) 100 mg PO BID ROBERT Stop: 06/17/22 20:59 Last Admin: 06/11/22 08:54 Dose: 100 mg Duloxetine HCl (Duloxetine Hcl 30 Mg Cap) 30 mg PO DAILY ROBERT Stop: 07/11/22 08:59 Last Admin: 06/11/22 08:55 Dose: 30 mg Duloxetine HCl (Duloxetine Hcl 60 Mg Cap) 60 mg PO QAM ROBERT Stop: 07/11/22 08:59 Last Admin: 06/11/22 08:55 Dose: 60 mg Furosemide (Furosemide 40 Mg Tab) 40 mg PO BID17 ROBERT Stop: 07/11/22 09:59 Last Admin: 06/11/22 16:07 Dose: 40 mg Gabapentin (Gabapentin 300 Mg Cap) 300 mg PO TID ROBERT Stop: 07/10/22 16:44 Last Admin: 06/11/22 13:16 Dose: 300 mg Glucagon (Glucagon For Inj 1 Mg Vial) 1 mg IM UD PRN; Protocol PRN Reason: Hypoglycemia Protocol Stop: 07/10/22 16:44 Glucose (Glucose 40% Gel 15 Gm Tube) 15 - 30 gm PO UD PRN; Protocol PRN Reason: Hypoglycemia Protocol Stop: 07/10/22 16:44 Glucose (Glucose 10 Tab/Tube) 4 - 8 tab PO UD PRN; Protocol PRN Reason: Hypoglycemia Protocol Stop: 07/10/22 16:44 Insulin Aspart (Insulin Aspart Per Unit) 0 units SC ACHS ROBERT Stop: 07/10/22 16:44 Last Admin: 06/11/22 12:18 Dose: 14 units Insulin Glargine (Lantus Per Unit Charge) 40 units SQ HS ROBERT Stop: 07/10/22 20:59 Last Admin: 06/10/22 21:00 Dose: 40 units Levothyroxine Sodium (Levothyroxine Sodium 200 Mcg Tablet) 200 mcg PO QAM [facility]ERT Stop: 07/11/22 08:59 Last Admin: 06/11/22 08:55 Dose: 200 mcg Levothyroxine Sodium (Levothyroxine Sodium 50 Mcg Tablet) 50 mcg PO QAM [facility] Stop: 07/11/22 08:59 Last Admin: 06/11/22 08:55 Dose: 50 mcg Meclizine HCl (Meclizine 12.5 Mg Tab) 12.5 mg PO TID PRN PRN Reason: Dizziness Stop: 07/10/22 16:12 Miscellaneous (*Trulicity*Order Awaiting Action) 1 each N/A QS [facility] Stop: 07/11/22 00:00 Last Admin: 06/11/22 15:09 Dose: Not Given Miscellaneous (Carbohydrates For Hypoglycemia ) 15 - 30 gm PO UD PRN PRN Reason: Hypoglycemia Treatment Stop: 07/10/22 16:44 Nortriptyline HCl (Nortriptyline Hcl 25 Mg Cap) 50 mg PO HS [facility]ERT Stop: 07/10/22 20:59 Last Admin: 06/10/22 21:10 Dose: 50 mg Potassium Chloride (Potassium Chloride Crtab 20 Meq Tabcr) 20 meq PO QAM [facility]ERT Stop: 07/11/22 09:59 Last Admin: 06/11/22 11:08 Dose: 20 meq Ropinirole HCl (Ropinirole Hcl 2 Mg Tablet) 2 mg PO HS ROBERT Stop: 07/10/22 20:59 Last Admin: 06/10/22 21:10 Dose: 2 mg Tramadol HCl (Tramadol Hcl 50 Mg Tablet) 100 mg PO Q8H PRN PRN Reason: Pain Stop: 07/11/22 10:54 Trazodone HCl (Trazodone Hcl 50 Mg Tab) 50 mg PO HS ROBERT Stop: 07/10/22 20:59 Last Admin: 06/10/22 21:09 Dose: 50 mg (1) DVT (deep venous thrombosis) Affected thrombotic vein of extremity: unspecified vein of extremity Chronicity: acute DVT location: lower extremity Laterality: right Qualified Code(s): I82.401 - Acute embolism and thrombosis of unspecified deep veins of right lower extremity
[2022-06-11] MEDS: LANTUS PER UNIT CHARGE SQ SCH (20:47)
[2022-06-11] MEDS: traZODone HCL 50 MG TAB PO SCH (20:56)
[2022-06-11] MEDS: NORTRIPTYLINE HCL 25 MG CAP PO SCH (20:57)
[2022-06-11] MEDS: rOPINIRole HCL 2 MG TABLET PO SCH (20:57)
[2022-06-12] MEDS: ACETAMINOPHEN 500 MG TAB PO PRN (00:15)
[2022-06-12] MEDS: DULoxetine HCL 30 MG CAP PO SCH (07:51)
[2022-06-12] MEDS: LEVOTHYROXINE SODIUM 200 MCG TABLET PO SCH (07:51)
[2022-06-12] MEDS: POTASSIUM CHLORIDE CRTAB 20 MEQ TABCR PO SCH (07:51)
[2022-06-12] MEDS: GABAPENTIN 300 MG CAP PO SCH ×3 (07:51→20:24)
[2022-06-12] MEDS: APIXABAN 5 MG TABLET PO SCH ×2 (07:51→20:23)
[2022-06-12] MEDS: DOXYCYCLINE HYCLATE 100 MG CAP PO SCH ×2 (07:51→20:24)
[2022-06-12] MEDS: LEVOTHYROXINE SODIUM 50 MCG TABLET PO SCH (07:51)
[2022-06-12] MEDS: FUROSEMIDE 40 MG TAB PO SCH ×2 (07:51→18:38)
[2022-06-12] MEDS: DULoxetine HCL 60 MG CAP PO SCH (07:51)
[2022-06-12 07:54] LABS: Basophils # (auto) 0.07 K/uL (0-0.2); Basophils % (auto) 0.8 %; Eosinophils # (auto) 0.63 K/uL (0-0.50); Eosinophils % (auto) 6.8 %; Hematocrit (blood only) 40.1 % (34.1-44.9); Hemoglobin 12.5 g/dl (12.0-16.0); Immature Granulocytes # (auto) 0.07 K/uL (0.00-0.02); Immature Granulocytes % (auto) 0.8 %; Lymphocytes # (auto) 1.71 K/uL (1.2-3.4); Lymphocytes % (auto) 18.5 %; Mean Corpuscular Hemoglobin 30.3 pg (25.0-34.0); Mean Corpuscular Hgb Conc 31.2 g/dL (32.0-36.0); Mean Corpuscular Volume 97.3 fL (80.0-100.0); Monocytes # (auto) 0.54 K/uL (0.24-0.82); Monocytes % (auto) 5.8 %; Neutrophils # (auto) 6.23 K/uL (1.4-6.5); Neutrophils % (auto) 67.3 %; Platelet Count 260 K/uL (130-400); RDW Standard Deviation 53.4 fL (36.4-46.3); Red Blood Count 4.12 M/uL (3.93-5.22); White Blood Count 9.25 K/ul (4.8-10.8)
[2022-06-12] MEDS: INSULIN ASPART PER UNIT SC SCH ×4 (07:59→20:46)
[2022-06-12 08:26] LABS: BUN Creatinine Ratio 19.2 (10-20); Calcium 8.5 mg/dl (8.5-10.1); Creatinine Clr Calc Pharmacy 64.1 ml/min; Est GFR (African American) 49.2 ml/min; Est GFR (Non-African American) 42.4 ml/min; Magnesium 1.5 mg/dl (1.7-2.4); Potassium 3.9 mmol/L (3.5-5.1)
[2022-06-12] MEDS: traMADol HCL 50 MG TABLET PO PRN ×2 (10:25→20:53)
--- NOTE | 2022-06-12 11:09 | Cardiology Progress Note ---
Date of Service June 12, 2022 Assessment & Plan (1) Acute respiratory failure with hypoxia: (2) Obesity hypoventilation syndrome: (3) Acute on chronic diastolic HF (heart failure): (4) Pulmonary edema: (5) Acute UTI (urinary tract infection): (6) Elevated troponin: (7) HTN (hypertension): Plan Patient admitted with worsening hypoxia, acute on chronic respiratory failure with evidence of pulm edema/volume overload consistent with acute on chronic diastolic HF. Creatinine continues to improve with IV lasix. Continue furosemide 40 mg IV BID today. Supplement potassium. Monitor I+O's. Daily weight with standing scale. She is hypertensive, but hopeful with ongoing diuresis and oral meds, her BP will improve. She has minimally elevated troponin, likely due to CHF exacerbation, hypoxia. Echo result is pending. No acute EKG changes. No complaints of chest pain. Continue antibiotics for UTI per hospitalist. Admission and Anticipated Discharge Date Admission Date: June 10, 2022 Subjective Patient seen examined the bedside. Fluid balance -2.3 L. Continues to note lower extremity edema primarily involving her right leg. No orthopnea or PND. Denies chest discomfort or palpitations. Creatinine trending downward. Telemetry reveals sinus rhythm in the 90s. No dysrhythmias. Review of Systems Review of Systems: All systems reviewed & are unremarkable except as noted in Subjective Results & Data ([facility]) Vital Signs (Past 12 Hours) Vital Signs Temp Pulse Pulse Resp BP BP Pulse Ox 06/12/22 08:00 94 H 06/12/22 08:00 06/12/22 07:27 36.8 C 90 19 147/76 H 95 06/12/22 04:47 36.7 C 100 H 18 147/72 H 94 06/12/22 04:36 87 18 89 L 06/11/22 23:30 36.6 C 92 H 20 145/76 H 97 06/11/22 23:10 91 H O2 Del Method O2 Flow Rate 06/12/22 08:00 06/12/22 08:00 Nasal Cannula 6 06/12/22 07:27 Room Air 06/12/22 04:47 Nasal Cannula 6 06/12/22 04:36 06/11/22 23:30 BiPAP 06/11/22 23:10 (1) Pulmonary edema Chronicity: acute Qualified Code(s): J81.0 - Acute pulmonary edema
--- NOTE | 2022-06-12 14:51 | Hospitalist Progress Note ---
Date of Service June 12, 2022 Assessment & Plan (1) Acute on chronic diastolic heart failure: Plan: Presented with shortness of breath and requiring more oxygen for the last 2 weeks Chest x-ray evidence of pulmonary edema Likely due to acute on chronic diastolic heart failure Troponin slightly elevated likely secondary to his stress-induced elevation-we will get serial troponin No significant EKG changes to doubt any ACS Will need intravenous Lasix,Lasix 40mg IV x1 given today Echo of the heart showed-no regional wall motion abnormalities, LV is hyperdynamic, EF was more than 70%, RV is grossly normal, RV function is normal, grade 1 diastolic dysfunction, no significant valvular stenosis Cardiology consulted-appreciate input and recommendation Started on Lasix 40 mg IV twice daily She has been feeling much better clinically and denies any significant symptoms at rest (2) Acute UTI (urinary tract infection): Plan: UA suggestive of infection Denies any significant Urine culture has been sent-has been growing gram-negative bacilli and the sensitivities pending Ceftriaxone has been started and will continue Urine is growing E. coli which is pansensitive (3) DVT (deep venous thrombosis): Plan: History of recurrent DVT on Eliquis D-dimer has been negative Doubt any pulmonary embolism on Eliquis Will continue Eliquis (4) Obesity hypoventilation syndrome: Plan: Has obstructive sleep apnea Has been on CPAP at home with oxygen Will advised to use her own CPAP Chronic respiratory failure on home oxygen Requested 3 L of oxygen with Will monitor while in the hospital Will start doxycycline for possible infective exacerbation (5) Diabetes mellitus, type II: Plan: Has been on insulin Will put her on sliding scale on top of regular insulin and check hemoglobin A1c (6) CKD (chronic kidney disease), stage III: Plan: May have acute on chronic kidney impairment Will monitor BMP specially with the use of diuretic Creatinine has been improving even with intravenous Lasix 2 times a day Will monitor kidney function (7) ELISSA on CPAP: Plan: Continue with CPAP with oxygen (8) HTN (hypertension): Plan: We will continue her current medications (9) HLD (hyperlipidemia): Plan: Continue statin (10) Morbid obesity: (11) Hypothyroidism: Plan: Continue replacement Chronic pain Has been taking Tylenol and Ultram as an outpatient Pain seems to be increased She cannot take any other narcotics except Ultram Will increase the dose of Ultram 100 mg every 8 hourly as needed while she is in the hospital DVT prophylaxis On Eliquis CODE STATUS Full Admission and Anticipated Discharge Date Admission Date: June 10, 2022 Subjective 06/11/2022 The patient was seen and examined in telemetry unit She has been feeling a little better but complains to have pain all over the body She denies any fever and or chills and denies any problem with urination No chest pain and/or palpitation 06/12/2022 The patient was seen and examined in telemetry unit She has been feeling much better today Denies any significant pain and no shortness of breath at rest Review of Systems Review of Systems: All systems reviewed and are unremarkable except as noted below Respiratory: No shortness of breath Physical Exam Physical Exam: Lying in bed with moderate distress due to shortness of breath Constitutional: well developed, well nourished, + ill appearing and + morbidly obese Eyes: PERRL, conjunctivae normal, anicteric sclerae ENMT: external ear and nose normal, oropharynx normal Neck: trachea midline, no thyromegaly Respiratory: + respiratory distress (Mild to moderate distress at rest) Auscultation: + diminished lung sounds and + crackles (Bibasilar crackles more on the right than the left) Cardiovascular: Rate/Rhythm: regular rate, regular rhythm and + tachycardic Heart Sounds: normal S1 and normal S2; no murmur Extremities: + edema (1+ edema bilateral) Gastrointestinal (Abdomen): Inspection/Auscultation: + abdomen distended and normal bowel sounds Percussion/Palpation: + abdomen tender and abdomen soft Musculoskeletal: No acute arthritis in any joint Neurologic: normal touch/pain/proprioception and moves all extremities; no focal motor deficits Psychiatric: A+Ox3, euthymic affect Lymphatic: no cervical or axillary lymphadenopathy Results & Data Results & Data ([facility]) Vital Signs (Past 12 Hours) Vital Signs Temp Pulse Pulse Resp BP BP Pulse Ox 06/12/22 11:18 36.7 C 93 H 19 145/76 H 98 06/12/22 08:00 94 H 06/12/22 08:00 06/12/22 07:27 36.8 C 90 19 147/76 H 95 06/12/22 04:47 36.7 C 100 H 18 147/72 H 94 06/12/22 04:36 87 18 89 L O2 Del Method O2 Flow Rate 06/12/22 11:18 Nasal Cannula 5 06/12/22 08:00 06/12/22 08:00 Nasal Cannula 6 06/12/22 07:27 Room Air 06/12/22 04:47 Nasal Cannula 6 06/12/22 04:36 Laboratory Results Short CBC 06/12/22 Range/Units 07:39 WBC 9.25 (4.8-10.8) K/ul Hgb 12.5 (12.0-16.0) g/dl Hct 40.1 (34.1-44.9) % Plt Count 260 (130-400) K/uL BMP 06/12/22 07:39 Sodium 136 Potassium 3.9 Chloride 99 Carbon Dioxide 33 H BUN 25 H Creatinine 1.30 H Glucose 192 H Calcium 8.5 Medications Administered Current Inpatient Medications Acetaminophen (Acetaminophen 500 Mg Tab) 1,000 mg PO Q6H PRN PRN Reason: Pain Stop: 07/11/22 15:52 Last Admin: 06/12/22 00:15 Dose: 1,000 mg Apixaban (Apixaban 5 Mg Tablet) 5 mg PO BID ROBERT Stop: 07/10/22 20:59 Last Admin: 06/12/22 07:51 Dose: 5 mg Clonazepam (Clonazepam 0.5 Mg Tab) 0.5 mg PO BID PRN PRN Reason: anxiety Stop: 07/10/22 16:12 Last Admin: 06/11/22 09:00 Dose: 0.5 mg Cyclobenzaprine HCl (Cyclobenzaprine Hcl 10 Mg Tab) 10 mg PO HS PRN PRN Reason: Muscle Spasm Stop: 07/10/22 16:12 Last Admin: 06/10/22 23:16 Dose: 10 mg Dextrose (Dextrose 50% 50 Ml Syringe) 25 - 50 ml IV UD PRN; Protocol PRN Reason: Hypoglycemia Protocol Stop: 07/10/22 16:44 Dicyclomine HCl (Dicyclomine Hcl 20 Mg Tab) 20 mg PO QID PRN PRN Reason: abdominal pain Stop: 07/10/22 16:12 Docusate Sodium (Docusate Sodium 100 Mg Cap) 100 mg PO BID PRN PRN Reason: Constipation Stop: 07/10/22 16:12 Doxycycline Hyclate (Doxycycline Hyclate 100 Mg Cap) 100 mg PO BID ROBERT Stop: 06/17/22 20:59 Last Admin: 06/12/22 07:51 Dose: 100 mg Duloxetine HCl (Duloxetine Hcl 30 Mg Cap) 30 mg PO DAILY [facility] Stop: 07/11/22 08:59 Last Admin: 06/12/22 07:51 Dose: 30 mg Duloxetine HCl (Duloxetine Hcl 60 Mg Cap) 60 mg PO QAM [facility] Stop: 07/11/22 08:59 Last Admin: 06/12/22 07:51 Dose: 60 mg Furosemide (Furosemide 40 Mg Tab) 40 mg PO BID17 ROBERT Stop: 07/11/22 09:59 Last Admin: 06/12/22 07:51 Dose: 40 mg Gabapentin (Gabapentin 300 Mg Cap) 300 mg PO TID ROBERT Stop: 07/10/22 16:44 Last Admin: 06/12/22 13:25 Dose: 300 mg Glucagon (Glucagon For Inj 1 Mg Vial) 1 mg IM UD PRN; Protocol PRN Reason: Hypoglycemia Protocol Stop: 07/10/22 16:44 Glucose (Glucose 40% Gel 15 Gm Tube) 15 - 30 gm PO UD PRN; Protocol PRN Reason: Hypoglycemia Protocol Stop: 07/10/22 16:44 Glucose (Glucose 10 Tab/Tube) 4 - 8 tab PO UD PRN; Protocol PRN Reason: Hypoglycemia Protocol Stop: 07/10/22 16:44 Insulin Aspart (Insulin Aspart Per Unit) 0 units SC ACHS [facility] Stop: 07/10/22 16:44 Last Admin: 06/12/22 12:58 Dose: 11 units Insulin Glargine (Lantus Per Unit Charge) 40 units SQ HS [facility] Stop: 07/10/22 20:59 Last Admin: 06/11/22 20:47 Dose: 40 units Levothyroxine Sodium (Levothyroxine Sodium 200 Mcg Tablet) 200 mcg PO QAM [facility] Stop: 07/11/22 08:59 Last Admin: 06/12/22 07:51 Dose: 200 mcg Levothyroxine Sodium (Levothyroxine Sodium 50 Mcg Tablet) 50 mcg PO QAM [facility] Stop: 07/11/22 08:59 Last Admin: 06/12/22 07:51 Dose: 50 mcg Meclizine HCl (Meclizine 12.5 Mg Tab) 12.5 mg PO TID PRN PRN Reason: Dizziness Stop: 07/10/22 16:12 Miscellaneous (*Trulicity*Order Awaiting Action) 1 each N/A QS [facility]ERT Stop: 07/11/22 00:00 Last Admin: 06/12/22 07:54 Dose: Not Given Miscellaneous (Carbohydrates For Hypoglycemia ) 15 - 30 gm PO UD PRN PRN Reason: Hypoglycemia Treatment Stop: 07/10/22 16:44 Nortriptyline HCl (Nortriptyline Hcl 25 Mg Cap) 50 mg PO HS ROBERT Stop: 07/10/22 20:59 Last Admin: 06/11/22 20:57 Dose: 50 mg Potassium Chloride (Potassium Chloride Crtab 20 Meq Tabcr) 20 meq PO QAM [facility] Stop: 07/11/22 09:59 Last Admin: 06/12/22 07:51 Dose: 20 meq Ropinirole HCl (Ropinirole Hcl 2 Mg Tablet) 2 mg PO HS [facility] Stop: 07/10/22 20:59 Last Admin: 06/11/22 20:57 Dose: 2 mg Tramadol HCl (Tramadol Hcl 50 Mg Tablet) 100 mg PO Q8H PRN PRN Reason: Pain Stop: 07/11/22 10:54 Last Admin: 06/12/22 10:25 Dose: 100 mg Trazodone HCl (Trazodone Hcl 50 Mg Tab) 50 mg PO HS [facility]ERT Stop: 07/10/22 20:59 Last Admin: 06/11/22 20:56 Dose: 50 mg (1) DVT (deep venous thrombosis) Affected thrombotic vein of extremity: unspecified vein of extremity Chronicity: acute DVT location: lower extremity Laterality: right Qualified Code(s): I82.401 - Acute embolism and thrombosis of unspecified deep veins of right lower extremity
[2022-06-12] MEDS: NORTRIPTYLINE HCL 25 MG CAP PO SCH (20:24)
[2022-06-12] MEDS: rOPINIRole HCL 2 MG TABLET PO SCH (20:25)
[2022-06-12] MEDS: traZODone HCL 50 MG TAB PO SCH (20:25)
[2022-06-12] MEDS: LANTUS PER UNIT CHARGE SQ SCH (20:47)
[2022-06-13] MEDS: ACETAMINOPHEN 500 MG TAB PO PRN ×2 (01:11→20:19)
[2022-06-13] MEDS: GABAPENTIN 300 MG CAP PO SCH ×3 (07:57→20:17)
[2022-06-13] MEDS: LEVOTHYROXINE SODIUM 50 MCG TABLET PO SCH (07:57)
[2022-06-13] MEDS: FUROSEMIDE 40 MG TAB PO SCH ×2 (07:57→18:14)
[2022-06-13] MEDS: POTASSIUM CHLORIDE CRTAB 20 MEQ TABCR PO SCH (07:57)
[2022-06-13] MEDS: DULoxetine HCL 30 MG CAP PO SCH (07:57)
[2022-06-13] MEDS: DOXYCYCLINE HYCLATE 100 MG CAP PO SCH ×2 (07:58→20:18)
[2022-06-13] MEDS: APIXABAN 5 MG TABLET PO SCH ×2 (07:58→20:15)
[2022-06-13] MEDS: DULoxetine HCL 60 MG CAP PO SCH (07:58)
[2022-06-13] MEDS: LEVOTHYROXINE SODIUM 200 MCG TABLET PO SCH (07:58)
[2022-06-13 08:38] LABS: BUN Creatinine Ratio 18.7 (10-20); Calcium 8.8 mg/dl (8.5-10.1); Creatinine Clr Calc Pharmacy 62.2 ml/min; Est GFR (African American) 47.4 ml/min; Est GFR (Non-African American) 40.9 ml/min; Potassium 3.7 mmol/L (3.5-5.1)
[2022-06-13] MEDS: INSULIN ASPART PER UNIT SC SCH ×4 (09:07→20:06)
--- NOTE | 2022-06-13 11:59 | Cardiology Progress Note ---
Date of Service June 13, 2022 Assessment & Plan (1) Acute respiratory failure with hypoxia: (2) Obesity hypoventilation syndrome: (3) Acute on chronic diastolic HF (heart failure): (4) Pulmonary edema: (5) Acute UTI (urinary tract infection): (6) Elevated troponin: (7) HTN (hypertension): Plan Patient admitted with worsening hypoxia, acute on chronic respiratory failure with evidence of pulm edema/volume overload consistent with acute on chronic diastolic HF. Renal function stable today. Continue furosemide 40 mg IV BID today. Supplement potassium daily as ordered. Monitor I+O's. Daily weight with standing scale. Patient remains hypertensive, however, at times blood pressure demonstrates improvement. She has minimally elevated troponin, likely due to CHF exacerbation, hypoxia. No acute EKG changes. Echocardiogram demonstrates hyperdynamic LV function without regional wall motion abnormality. No complaints of chest pain. Continue antibiotics for UTI and cellulitis per hospitalist. Admission and Anticipated Discharge Date Admission Date: June 10, 2022 Subjective Patient seen and examined at the bedside. Fluid balance -1.1 L. Creatinine remained stable. Lower extremity edema, in particular right lower extremity edema unchanged. Telemetry feels sinus rhythm in the 90s. No dysrhythmias. No orthopnea or PND. No other changes overnight. Review of Systems Review of Systems: All systems reviewed & are unremarkable except as noted in Subjective Physical Exam Constitutional: + morbidly obese Respiratory: normal respiratory effort; no respiratory distress Auscultation: no crackles, no rales, no rhonchi and no wheezes Cardiovascular: Rate/Rhythm: regular rate and regular rhythm Heart Sounds: normal S1 and normal S2; no murmur Vessels: no JVD and no carotid bruit Extremities: + edema (Bilateral pretibial edema, right >left, mild RLE erythema) Gastrointestinal (Abdomen): Inspection/Auscultation: abdomen not distended Percussion/Palpation: abdomen soft; abdomen nontender, no guarding and abdomen not rigid Neurologic: CN's II-XI intact bilaterally and moves all extremities; no focal motor deficits Psychiatric: A+Ox3, euthymic affect Results & Data ([facility]) Vital Signs (Past 12 Hours) Vital Signs Temp Pulse Pulse Resp BP Pulse Ox O2 Del Method 06/13/22 11:23 36.8 C 88 18 167/73 H 96 Nasal Cannula 09/18/22 08:00 90 06/13/22 08:00 Nasal Cannula 06/13/22 07:35 36.5 C 91 H 18 158/75 H 97 Nasal Cannula 06/13/22 04:44 36.8 C 90 18 157/81 H 94 Nasal Cannula 06/13/22 00:37 92 H O2 Flow Rate 06/13/22 11:23 3 06/13/22 08:00 06/13/22 08:00 3 06/13/22 07:35 5 06/13/22 04:44 5 06/13/22 00:37 (1) Pulmonary edema Chronicity: acute Qualified Code(s): J81.0 - Acute pulmonary edema
[2022-06-13] MEDS: traMADol HCL 50 MG TABLET PO PRN (13:51)
[2022-06-13] MEDS: clonazePAM 0.5 MG TAB PO PRN (13:53)
--- NOTE | 2022-06-13 14:10 | Hospitalist Progress Note ---
Date of Service June 13, 2022 Assessment & Plan (1) Acute on chronic diastolic heart failure: Plan: Presented with shortness of breath and requiring more oxygen for the last 2 weeks Chest x-ray evidence of pulmonary edema Likely due to acute on chronic diastolic heart failure Troponin slightly elevated likely secondary to his stress-induced elevation-we will get serial troponin No significant EKG changes to doubt any ACS Will need intravenous Lasix,Lasix 40mg IV x1 given today Echo of the heart showed-no regional wall motion abnormalities, LV is hyperdynamic, EF was more than 70%, RV is grossly normal, RV function is normal, grade 1 diastolic dysfunction, no significant valvular stenosis Cardiology consulted-appreciate input and recommendation Started on Lasix 40 mg IV twice daily She has been feeling much better clinically and denies any significant symptoms at rest Creatinine remains stable and will continue with Lasix 40 mg IV twice a day for today We will get PT and OT evaluation and possible discharge tomorrow afternoon (2) Acute UTI (urinary tract infection): Plan: UA suggestive of infection Denies any significant Urine culture has been sent-has been growing gram-negative bacilli and the sensitivities pending Ceftriaxone has been started and will continue Urine is growing E. coli which is pansensitive Will change antibiotic to oral on discharge (3) DVT (deep venous thrombosis): Plan: History of recurrent DVT on Eliquis D-dimer has been negative Doubt any pulmonary embolism on Eliquis Will continue Eliquis (4) Obesity hypoventilation syndrome: Plan: Has obstructive sleep apnea Has been on CPAP at home with oxygen Will advised to use her own CPAP Chronic respiratory failure on home oxygen Requested 3 L of oxygen with Will monitor while in the hospital Will start doxycycline for possible infective exacerbation (5) Diabetes mellitus, type II: Plan: Has been on insulin Will put her on sliding scale on top of regular insulin and check hemoglobin A1c (6) CKD (chronic kidney disease), stage III: Plan: May have acute on chronic kidney impairment Will monitor BMP specially with the use of diuretic Creatinine has been improving even with intravenous Lasix 2 times a day Will monitor kidney function-remains stable (7) ELISSA on CPAP: Plan: Continue with CPAP with oxygen (8) HTN (hypertension): Plan: We will continue her current medications (9) HLD (hyperlipidemia): Plan: Continue statin (10) Morbid obesity: (11) Hypothyroidism: Plan: Continue replacement Chronic pain Has been taking Tylenol and Ultram as an outpatient Pain seems to be increased She cannot take any other narcotics except Ultram Will increase the dose of Ultram 100 mg every 8 hourly as needed while she is in the hospital DVT prophylaxis On Eliquis CODE STATUS Full Admission and Anticipated Discharge Date Admission Date: June 10, 2022 Subjective 06/11/2022 The patient was seen and examined in telemetry unit She has been feeling a little better but complains to have pain all over the body She denies any fever and or chills and denies any problem with urination No chest pain and/or palpitation 06/12/2022 The patient was seen and examined in telemetry unit She has been feeling much better today Denies any significant pain and no shortness of breath at rest 06/13/2020 The patient was seen and examined in telemetry unit She has been feeling much better today and sitting at the edge of the bed Denies any significant symptoms Her shortness of breath is improved a lot Review of Systems Review of Systems: All systems reviewed and are unremarkable except as noted below Respiratory: No shortness of breath Physical Exam Physical Exam: Lying in bed with moderate distress due to shortness of breath Constitutional: well developed, well nourished, + ill appearing and + morbidly obese Eyes: PERRL, conjunctivae normal, anicteric sclerae ENMT: external ear and nose normal, oropharynx normal Neck: trachea midline, no thyromegaly Respiratory: + respiratory distress (Mild to moderate distress at rest) Auscultation: + diminished lung sounds; no crackles Cardiovascular: Rate/Rhythm: regular rate, regular rhythm and + tachycardic Heart Sounds: normal S1 and normal S2; no murmur Extremities: + edema (1+ edema bilateral) Gastrointestinal (Abdomen): Inspection/Auscultation: + abdomen distended and normal bowel sounds Percussion/Palpation: + abdomen tender and abdomen soft Musculoskeletal: No acute arthritis in any joint Neurologic: normal touch/pain/proprioception and moves all extremities; no focal motor deficits Psychiatric: A+Ox3, euthymic affect Lymphatic: no cervical or axillary lymphadenopathy Results & Data Results & Data ([facility]) Vital Signs (Past 12 Hours) Vital Signs Temp Pulse Pulse Resp BP Pulse Ox O2 Del Method 06/13/22 11:23 36.8 C 88 18 167/73 H 96 Nasal Cannula 06/13/22 08:00 90 06/13/22 08:00 Nasal Cannula 06/13/22 07:35 36.5 C 91 H 18 158/75 H 97 Nasal Cannula 06/13/22 04:44 36.8 C 90 18 157/81 H 94 Nasal Cannula O2 Flow Rate 06/13/22 11:23 3 06/13/22 08:00 06/13/22 08:00 3 06/13/22 07:35 5 06/13/22 04:44 5 Laboratory Results BMP 06/13/22 07:53 Sodium 137 Potassium 3.7 Chloride 96 L Carbon Dioxide 33 H BUN 25 H Creatinine 1.34 H Glucose 192 H Calcium 8.8 Medications Administered Current Inpatient Medications Acetaminophen (Acetaminophen 500 Mg Tab) 1,000 mg PO Q6H PRN PRN Reason: Pain Stop: 07/11/22 15:52 Last Admin: 06/13/22 01:11 Dose: 1,000 mg Apixaban (Apixaban 5 Mg Tablet) 5 mg PO BID ROBERT Stop: 07/10/22 20:59 Last Admin: 06/13/22 07:58 Dose: 5 mg Clonazepam (Clonazepam 0.5 Mg Tab) 0.5 mg PO BID PRN PRN Reason: anxiety Stop: 07/10/22 16:12 Last Admin: 06/13/22 13:53 Dose: 0.5 mg Cyclobenzaprine HCl (Cyclobenzaprine Hcl 10 Mg Tab) 10 mg PO HS PRN PRN Reason: Muscle Spasm Stop: 07/10/22 16:12 Last Admin: 06/10/22 23:16 Dose: 10 mg Dextrose (Dextrose 50% 50 Ml Syringe) 25 - 50 ml IV UD PRN; Protocol PRN Reason: Hypoglycemia Protocol Stop: 07/10/22 16:44 Dicyclomine HCl (Dicyclomine Hcl 20 Mg Tab) 20 mg PO QID PRN PRN Reason: abdominal pain Stop: 07/10/22 16:12 Docusate Sodium (Docusate Sodium 100 Mg Cap) 100 mg PO BID PRN PRN Reason: Constipation Stop: 07/10/22 16:12 Doxycycline Hyclate (Doxycycline Hyclate 100 Mg Cap) 100 mg PO BID ROBERT Stop: 06/17/22 20:59 Last Admin: 06/13/22 07:58 Dose: 100 mg Duloxetine HCl (Duloxetine Hcl 30 Mg Cap) 30 mg PO DAILY [facility] Stop: 07/11/22 08:59 Last Admin: 06/13/22 07:57 Dose: 30 mg Duloxetine HCl (Duloxetine Hcl 60 Mg Cap) 60 mg PO QAM [facility] Stop: 07/11/22 08:59 Last Admin: 06/13/22 07:58 Dose: 60 mg Furosemide (Furosemide 40 Mg Tab) 40 mg PO [id number] ROBERT Stop: 07/11/22 09:59 Last Admin: 06/13/22 07:57 Dose: 40 mg Gabapentin (Gabapentin 300 Mg Cap) 300 mg PO TID ROBERT Stop: 07/10/22 16:44 Last Admin: 06/13/22 13:48 Dose: 300 mg Glucagon (Glucagon For Inj 1 Mg Vial) 1 mg IM UD PRN; Protocol PRN Reason: Hypoglycemia Protocol Stop: 07/10/22 16:44 Glucose (Glucose 40% Gel 15 Gm Tube) 15 - 30 gm PO UD PRN; Protocol PRN Reason: Hypoglycemia Protocol Stop: 07/10/22 16:44 Glucose (Glucose 10 Tab/Tube) 4 - 8 tab PO UD PRN; Protocol PRN Reason: Hypoglycemia Protocol Stop: 07/10/22 16:44 Insulin Aspart (Insulin Aspart Per Unit) 0 units SC ACHS [facility] Stop: 07/10/22 16:44 Last Admin: 06/13/22 13:48 Dose: 11 units Insulin Glargine (Lantus Per Unit Charge) 40 units SQ HS [facility] Stop: 07/10/22 20:59 Last Admin: 06/12/22 20:47 Dose: 40 units Levothyroxine Sodium (Levothyroxine Sodium 200 Mcg Tablet) 200 mcg PO QAM [facility] Stop: 07/11/22 08:59 Last Admin: 06/13/22 07:58 Dose: 200 mcg Levothyroxine Sodium (Levothyroxine Sodium 50 Mcg Tablet) 50 mcg PO QAM [facility] Stop: 07/11/22 08:59 Last Admin: 06/13/22 07:57 Dose: 50 mcg Meclizine HCl (Meclizine 12.5 Mg Tab) 12.5 mg PO TID PRN PRN Reason: Dizziness Stop: 07/10/22 16:12 Miscellaneous (*Trulicity*Order Awaiting Action) 1 each N/A QS [facility] Stop: 07/11/22 00:00 Last Admin: 06/13/22 13:47 Dose: 1 each Miscellaneous (Carbohydrates For Hypoglycemia ) 15 - 30 gm PO UD PRN PRN Reason: Hypoglycemia Treatment Stop: 07/10/22 16:44 Nortriptyline HCl (Nortriptyline Hcl 25 Mg Cap) 50 mg PO HS ROBERT Stop: 07/10/22 20:59 Last Admin: 06/12/22 20:24 Dose: 50 mg Potassium Chloride (Potassium Chloride Crtab 20 Meq Tabcr) 20 meq PO QAM [facility] Stop: 07/11/22 09:59 Last Admin: 06/13/22 07:57 Dose: 20 meq Ropinirole HCl (Ropinirole Hcl 2 Mg Tablet) 2 mg PO HS [facility]ERT Stop: 07/10/22 20:59 Last Admin: 06/12/22 20:25 Dose: 2 mg Tramadol HCl (Tramadol Hcl 50 Mg Tablet) 100 mg PO Q8H PRN PRN Reason: Pain Stop: 07/11/22 10:54 Last Admin: 06/13/22 13:51 Dose: 100 mg Trazodone HCl (Trazodone Hcl 50 Mg Tab) 50 mg PO HS ROBERT Stop: 07/10/22 20:59 Last Admin: 06/12/22 20:25 Dose: 50 mg (1) DVT (deep venous thrombosis) Affected thrombotic vein of extremity: unspecified vein of extremity Chronicity: acute DVT location: lower extremity Laterality: right Qualified Code(s): I82.401 - Acute embolism and thrombosis of unspecified deep veins of right lower extremity
[2022-06-13] MEDS: LANTUS PER UNIT CHARGE SQ SCH (20:07)
[2022-06-13] MEDS: traZODone HCL 50 MG TAB PO SCH (20:16)
[2022-06-13] MEDS: NORTRIPTYLINE HCL 25 MG CAP PO SCH (20:17)
[2022-06-13] MEDS: rOPINIRole HCL 2 MG TABLET PO SCH (20:18)
[2022-06-14] MEDS: traMADol HCL 50 MG TABLET PO PRN ×2 (00:57→20:53)
[2022-06-14 08:54] LABS: BUN Creatinine Ratio 17.6 (10-20); Calcium 8.8 mg/dl (8.5-10.1); Creatinine Clr Calc Pharmacy 66.4 ml/min; Est GFR (African American) 51.5 ml/min; Est GFR (Non-African American) 44.5 ml/min; Magnesium 1.4 mg/dl (1.7-2.4); Potassium 3.6 mmol/L (3.5-5.1)
[2022-06-14] MEDS ORDERED: POTASSIUM CHLORIDE CRTAB 20 MEQ TABCR PO STA (09:00)
[2022-06-14] MEDS: AMOXICILLIN 500 MG CAP PO SCH ×2 (09:14→20:52)
[2022-06-14] MEDS: APIXABAN 5 MG TABLET PO SCH ×2 (09:14→20:52)
[2022-06-14] MEDS: FUROSEMIDE 40 MG TAB PO SCH ×2 (09:14→16:03)
[2022-06-14] MEDS: DOXYCYCLINE HYCLATE 100 MG CAP PO SCH ×2 (09:14→20:52)
[2022-06-14] MEDS: GABAPENTIN 300 MG CAP PO SCH ×3 (09:14→20:51)
[2022-06-14] MEDS: POTASSIUM CHLORIDE CRTAB 20 MEQ TABCR PO SCH (09:15)
[2022-06-14] MEDS: INSULIN ASPART PER UNIT SC SCH ×4 (09:15→20:34)
[2022-06-14] MEDS: DULoxetine HCL 60 MG CAP PO SCH (09:15)
[2022-06-14] MEDS: DULoxetine HCL 30 MG CAP PO SCH (09:15)
[2022-06-14] MEDS: LEVOTHYROXINE SODIUM 50 MCG TABLET PO SCH (09:15)
[2022-06-14] MEDS: LEVOTHYROXINE SODIUM 200 MCG TABLET PO SCH (09:15)
[2022-06-14] MEDS: clonazePAM 0.5 MG TAB PO PRN (09:25)
[2022-06-14] MEDS: MAGNESIUM SULFATE / D5W 1 GM/100 ML BAG IV SCH ×2 (09:48→12:28)
--- NOTE | 2022-06-14 13:22 | Cardiology Progress Note ---
Date of Service June 14, 2022 Assessment & Plan (1) Acute respiratory failure with hypoxia: (2) Obesity hypoventilation syndrome: (3) Acute on chronic diastolic HF (heart failure): (4) Pulmonary edema: (5) Acute UTI (urinary tract infection): (6) Elevated troponin: (7) HTN (hypertension): Plan Patient admitted with worsening hypoxia, acute on chronic respiratory failure with evidence of pulm edema/volume overload consistent with acute on chronic diastolic HF. Volume status improved with IV diuretic therapy over the past few days. Renal function remained stable, however, serum bicarbonate trending upward. Recommend reduce IV furosemide to 40 mg daily. Monitor I+O's. Daily weight with standing scale. Blood pressure improved with IV diuresis. Consider addition of low-dose angiotensin receptor rey in a.m. pending review of lab studies. She has minimally elevated troponin, likely due to CHF exacerbation, hypoxia. No acute EKG changes. Echocardiogram demonstrates hyperdynamic LV function without regional wall motion abnormality. No complaints of chest pain. Continue antibiotics for UTI and cellulitis per hospitalist. Admission and Anticipated Discharge Date Admission Date: June 10, 2022 Subjective Patient seen examined the bedside. Edema unchanged. Fluid balance -700 cc. Renal function remained stable, however, bicarbonate trending upward. Telemetry reveals sinus rhythm. Patient offers no new concerns/complaints. Review of Systems Review of Systems: All systems reviewed & are unremarkable except as noted in Subjective Physical Exam Constitutional: + morbidly obese Respiratory: normal respiratory effort; no respiratory distress Auscultation: no crackles, no rales, no rhonchi and no wheezes Cardiovascular: Rate/Rhythm: regular rate and regular rhythm Heart Sounds: normal S1 and normal S2; no murmur Vessels: no JVD and no carotid bruit Extremities: + edema (Bilateral pretibial edema, right >left, mild RLE erythema) Gastrointestinal (Abdomen): Inspection/Auscultation: abdomen not distended Percussion/Palpation: abdomen soft; abdomen nontender, no guarding and abdomen n ot rigid Neurologic: CN's II-XI intact bilaterally and moves all extremities; no focal motor deficits Psychiatric: A+Ox3, euthymic affect Results & Data ([facility]) Vital Signs (Past 12 Hours) Vital Signs Temp Pulse Pulse Resp BP BP Pulse Ox 06/14/22 11:23 36.7 C 83 16 113/73 97 06/14/22 10:28 06/14/22 07:21 88 06/14/22 07:02 36.7 C 107 H 18 135/63 95 06/14/22 03:12 36.5 C 88 20 145/77 H 97 O2 Del Method O2 Flow Rate 06/14/22 11:23 Room Air 06/14/22 10:28 Nasal Cannula 5 06/14/22 07:21 06/14/22 07:02 Nasal Cannula 5 06/14/22 03:12 Nasal Cannula 5 (1) Pulmonary edema Chronicity: acute Qualified Code(s): J81.0 - Acute pulmonary edema
--- NOTE | 2022-06-14 13:54 | Hospitalist Progress Note ---
Date of Service June 14, 2022 Assessment & Plan (1) Acute on chronic diastolic heart failure: Plan: Presented with shortness of breath and requiring more oxygen for the last 2 weeks Chest x-ray evidence of pulmonary edema Likely due to acute on chronic diastolic heart failure Troponin slightly elevated likely secondary to his stress-induced elevation-we will get serial troponin No significant EKG changes to doubt any ACS Will need intravenous Lasix,Lasix 40mg IV x1 given today Echo of the heart showed-no regional wall motion abnormalities, LV is hyperdynamic, EF was more than 70%, RV is grossly normal, RV function is normal, grade 1 diastolic dysfunction, no significant valvular stenosis Cardiology consulted-appreciate input and recommendation Started on Lasix 40 mg IV twice daily She has been feeling much better clinically and denies any significant symptoms at rest Creatinine remains stable and will continue with Lasix 40 mg IV twice a day for today Has had PT and OT evaluation likely discharge tomorrow (2) Acute UTI (urinary tract infection): Plan: UA suggestive of infection Denies any significant Urine culture has been sent-has been growing gram-negative bacilli and the sensitivities pending Ceftriaxone has been started and will continue Urine is growing E. coli which is pansensitive Will change antibiotic to oral on discharge Did not get her IV ceftriaxone for the last few days. Remains symptomatic Has been started on oral amoxicillin from today (3) DVT (deep venous thrombosis): Plan: History of recurrent DVT on Eliquis D-dimer has been negative Doubt any pulmonary embolism on Eliquis Will continue Eliquis (4) Obesity hypoventilation syndrome: Plan: Has obstructive sleep apnea Has been on CPAP at home with oxygen Will advised to use her own CPAP Chronic respiratory failure on home oxygen Requested 3 L of oxygen with Will monitor while in the hospital Will start doxycycline for possible infective exacerbation (5) Diabetes mellitus, type II: Plan: Has been on insulin Will put her on sliding scale on top of regular insulin and check hemoglobin A1c (6) CKD (chronic kidney disease), stage III: Plan: May have acute on chronic kidney impairment Will monitor BMP specially with the use of diuretic Creatinine has been improving even with intravenous Lasix 2 times a day Will monitor kidney function-remains stable (7) ELISSA on CPAP: Plan: Continue with CPAP with oxygen (8) HTN (hypertension): Plan: We will continue her current medications (9) HLD (hyperlipidemia): Plan: Continue statin (10) Morbid obesity: (11) Hypothyroidism: Plan: Continue replacement Chronic pain Has been taking Tylenol and Ultram as an outpatient Pain seems to be increased She cannot take any other narcotics except Ultram Will increase the dose of Ultram 100 mg every 8 hourly as needed while she is in the hospital DVT prophylaxis On Eliquis CODE STATUS Full Admission and Anticipated Discharge Date Admission Date: June 10, 2022 Subjective 06/11/2022 The patient was seen and examined in telemetry unit She has been feeling a little better but complains to have pain all over the body She denies any fever and or chills and denies any problem with urination No chest pain and/or palpitation 06/12/2022 The patient was seen and examined in telemetry unit She has been feeling much better today Denies any significant pain and no shortness of breath at rest 06/13/2022 The patient was seen and examined in telemetry unit She has been feeling much better today and sitting at the edge of the bed Denies any significant symptoms Her shortness of breath is improved a lot 06/14/2022 The patient was seen and examined in telemetry unit She has been feeling much better and diuresing enough Denies any significant symptoms and has had physical therapy She will need to stay another 24 hours and likely discharge tomorrow Review of Systems Review of Systems: All systems reviewed and are unremarkable except as noted below Respiratory: No shortness of breath Physical Exam Physical Exam: Lying in bed with moderate distress due to shortness of breath Constitutional: well developed, well nourished, + ill appearing and + morbidly obese Eyes: PERRL, conjunctivae normal, anicteric sclerae ENMT: external ear and nose normal, oropharynx normal Neck: trachea midline, no thyromegaly Respiratory: + respiratory distress (Mild to moderate distress at rest) Auscultation: + diminished lung sounds; no crackles Cardiovascular: Rate/Rhythm: regular rate, regular rhythm and + tachycardic Heart Sounds: normal S1 and normal S2; no murmur Extremities: + edema (1+ edema bilateral) Gastrointestinal (Abdomen): Inspection/Auscultation: + abdomen distended and normal bowel sounds Percussion/Palpation: + abdomen tender and abdomen soft Musculoskeletal: No acute arthritis in any joint Neurologic: normal touch/pain/proprioception and moves all extremities; no focal motor deficits Psychiatric: A+Ox3, euthymic affect Lymphatic: no cervical or axillary lymphadenopathy Results & Data Results & Data ([facility]) Vital Signs (Past 12 Hours) Vital Signs Temp Pulse Pulse Resp BP BP Pulse Ox 06/14/22 11:23 36.7 C 83 16 113/73 97 06/14/22 10:28 06/14/22 07:21 88 06/14/22 07:02 36.7 C 107 H 18 135/63 95 06/14/22 03:12 36.5 C 88 20 145/77 H 97 O2 Del Method O2 Flow Rate 06/14/22 11:23 Room Air 06/14/22 10:28 Nasal Cannula 5 06/14/22 07:21 06/14/22 07:02 Nasal Cannula 5 06/14/22 03:12 Nasal Cannula 5 Laboratory Results BMP 06/14/22 07:42 Sodium 136 Potassium 3.6 Chloride 96 L Carbon Dioxide 35 H BUN 22 Creatinine 1.25 H Glucose 189 H Calcium 8.8 Medications Administered Current Inpatient Medications Acetaminophen (Acetaminophen 500 Mg Tab) 1,000 mg PO Q6H PRN PRN Reason: Pain Stop: 07/11/22 15:52 Last Admin: 06/13/22 20:19 Dose: 1,000 mg Amoxicillin (Amoxicillin 500 Mg Cap) 500 mg PO BID ROBERT; Protocol Stop: 06/18/22 23:59 Last Admin: 06/14/22 09:14 Dose: 500 mg Apixaban (Apixaban 5 Mg Tablet) 5 mg PO BID ROBERT Stop: 07/10/22 20:59 Last Admin: 06/14/22 09:14 Dose: 5 mg Clonazepam (Clonazepam 0.5 Mg Tab) 0.5 mg PO BID PRN PRN Reason: anxiety Stop: 07/10/22 16:12 Last Admin: 06/14/22 09:25 Dose: 0.5 mg Cyclobenzaprine HCl (Cyclobenzaprine Hcl 10 Mg Tab) 10 mg PO HS PRN PRN Reason: Muscle Spasm Stop: 07/10/22 16:12 Last Admin: 06/10/22 23:16 Dose: 10 mg Dextrose (Dextrose 50% 50 Ml Syringe) 25 - 50 ml IV UD PRN; Protocol PRN Reason: Hypoglycemia Protocol Stop: 07/10/22 16:44 Dicyclomine HCl (Dicyclomine Hcl 20 Mg Tab) 20 mg PO QID PRN PRN Reason: abdominal pain Stop: 07/10/22 16:12 Docusate Sodium (Docusate Sodium 100 Mg Cap) 100 mg PO BID PRN PRN Reason: Constipation Stop: 07/10/22 16:12 Doxycycline Hyclate (Doxycycline Hyclate 100 Mg Cap) 100 mg PO BID ROBERT Stop: 06/17/22 20:59 Last Admin: 06/14/22 09:14 Dose: 100 mg Duloxetine HCl (Duloxetine Hcl 30 Mg Cap) 30 mg PO DAILY ROBERT Stop: 07/11/22 08:59 Last Admin: 06/14/22 09:15 Dose: 30 mg Duloxetine HCl (Duloxetine Hcl 60 Mg Cap) 60 mg PO QAM ROBERT Stop: 07/11/22 08:59 Last Admin: 06/14/22 09:15 Dose: 60 mg Furosemide (Furosemide 40 Mg Tab) 40 mg PO BID17 ROBERT Stop: 07/11/22 09:59 Last Admin: 06/14/22 09:14 Dose: 40 mg Gabapentin (Gabapentin 300 Mg Cap) 300 mg PO TID ROBERT Stop: 07/10/22 16:44 Last Admin: 06/14/22 09:14 Dose: 300 mg Glucagon (Glucagon For Inj 1 Mg Vial) 1 mg IM UD PRN; Protocol PRN Reason: Hypoglycemia Protocol Stop: 07/10/22 16:44 Glucose (Glucose 40% Gel 15 Gm Tube) 15 - 30 gm PO UD PRN; Protocol PRN Reason: Hypoglycemia Protocol Stop: 07/10/22 16:44 Glucose (Glucose 10 Tab/Tube) 4 - 8 tab PO UD PRN; Protocol PRN Reason: Hypoglycemia Protocol Stop: 07/10/22 16:44 Insulin Aspart (Insulin Aspart Per Unit) 0 units SC ACHS ROBERT Stop: 07/10/22 16:44 Last Admin: 06/14/22 12:29 Dose: 17 units Insulin Glargine (Lantus Per Unit Charge) 40 units SQ HS ROBERT Stop: 07/10/22 20:59 Last Admin: 06/13/22 20:07 Dose: 40 units Levothyroxine Sodium (Levothyroxine Sodium 200 Mcg Tablet) 200 mcg PO QAM ROBERT Stop: 07/11/22 08:59 Last Admin: 06/14/22 09:15 Dose: 200 mcg Levothyroxine Sodium (Levothyroxine Sodium 50 Mcg Tablet) 50 mcg PO QAM ROBERT Stop: 07/11/22 08:59 Last Admin: 06/14/22 09:15 Dose: 50 mcg Meclizine HCl (Meclizine 12.5 Mg Tab) 12.5 mg PO TID PRN PRN Reason: Dizziness Stop: 07/10/22 16:12 Miscellaneous (*Trulicity*Order Awaiting Action) 1 each N/A QS ROBERT Stop: 07/11/22 00:00 Last Admin: 06/14/22 09:15 Dose: Not Given Miscellaneous (Carbohydrates For Hypoglycemia ) 15 - 30 gm PO UD PRN PRN Reason: Hypoglycemia Treatment Stop: 07/10/22 16:44 Nortriptyline HCl (Nortriptyline Hcl 25 Mg Cap) 50 mg PO HS ROBERT Stop: 07/10/22 20:59 Last Admin: 06/13/22 20:17 Dose: 50 mg Potassium Chloride (Potassium Chloride Crtab 20 Meq Tabcr) 20 meq PO QAM ROBERT Stop: 07/11/22 09:59 Last Admin: 06/14/22 09:15 Dose: 20 meq Ropinirole HCl (Ropinirole Hcl 2 Mg Tablet) 2 mg PO HS ROBERT Stop: 07/10/22 20:59 Last Admin: 06/13/22 20:18 Dose: 2 mg Tramadol HCl (Tramadol Hcl 50 Mg Tablet) 100 mg PO Q8H PRN PRN Reason: Pain Stop: 07/11/22 10:54 Last Admin: 06/14/22 00:57 Dose: 100 mg Trazodone HCl (Trazodone Hcl 50 Mg Tab) 50 mg PO HS ROBERT Stop: 07/10/22 20:59 Last Admin: 06/13/22 20:16 Dose: 50 mg (1) DVT (deep venous thrombosis) Affected thrombotic vein of extremity: unspecified vein of extremity Chronicity: acute DVT location: lower extremity Laterality: right Qualified Code(s): I82.401 - Acute embolism and thrombosis of unspecified deep veins of right lower extremity
[2022-06-14] MEDS: PANTOprazole 40 MG TAB PO SCH (16:03)
[2022-06-14] MEDS: ACETAMINOPHEN 500 MG TAB PO PRN (18:17)
[2022-06-14] MEDS: LANTUS PER UNIT CHARGE SQ SCH (20:34)
[2022-06-14] MEDS: NORTRIPTYLINE HCL 25 MG CAP PO SCH (20:51)
[2022-06-14] MEDS: traZODone HCL 50 MG TAB PO SCH (20:51)
[2022-06-14] MEDS: rOPINIRole HCL 2 MG TABLET PO SCH (20:51)
[2022-06-15 07:07] LABS: BUN Creatinine Ratio 16.1 (10-20); Calcium 8.6 mg/dl (8.5-10.1); Creatinine Clr Calc Pharmacy 66.8 ml/min; Est GFR (African American) 52.1 ml/min; Est GFR (Non-African American) 44.9 ml/min; Magnesium 1.5 mg/dl (1.7-2.4); Potassium 3.6 mmol/L (3.5-5.1)
[2022-06-15] MEDS: INSULIN ASPART PER UNIT SC SCH ×2 (08:41→12:39)
[2022-06-15] MEDS: GABAPENTIN 300 MG CAP PO SCH ×2 (08:42→15:29)
[2022-06-15] MEDS: DOXYCYCLINE HYCLATE 100 MG CAP PO SCH (08:42)
[2022-06-15] MEDS: LEVOTHYROXINE SODIUM 50 MCG TABLET PO SCH (08:42)
[2022-06-15] MEDS: FUROSEMIDE 40 MG TAB PO SCH (08:42)
[2022-06-15] MEDS: PANTOprazole 40 MG TAB PO SCH (08:42)
[2022-06-15] MEDS: APIXABAN 5 MG TABLET PO SCH (08:42)
[2022-06-15] MEDS: LEVOTHYROXINE SODIUM 200 MCG TABLET PO SCH (08:42)
[2022-06-15] MEDS: DULoxetine HCL 30 MG CAP PO SCH (08:43)
[2022-06-15] MEDS: AMOXICILLIN 500 MG CAP PO SCH (08:43)
[2022-06-15] MEDS: DULoxetine HCL 60 MG CAP PO SCH (08:43)
[2022-06-15] MEDS: POTASSIUM CHLORIDE CRTAB 20 MEQ TABCR PO SCH (08:43)
[2022-06-15] MEDS: ACETAMINOPHEN 500 MG TAB PO PRN (08:50)
[2022-06-15] MEDS: clonazePAM 0.5 MG TAB PO PRN (08:50)
--- NOTE | 2022-06-15 10:50 | Hospitalist Progress Note ---
Date of Service June 15, 2022 Assessment & Plan (1) Acute on chronic diastolic heart failure: Plan: Presented with shortness of breath and requiring more oxygen for the last 2 weeks Chest x-ray evidence of pulmonary edema Likely due to acute on chronic diastolic heart failure Troponin slightly elevated likely secondary to his stress-induced elevation-we will get serial troponin No significant EKG changes to doubt any ACS Will need intravenous Lasix,Lasix 40mg IV x1 given today Echo of the heart showed-no regional wall motion abnormalities, LV is hyperdynamic, EF was more than 70%, RV is grossly normal, RV function is normal, grade 1 diastolic dysfunction, no significant valvular stenosis Cardiology consulted-appreciate input and recommendation Started on Lasix 40 mg IV twice daily She has been feeling much better clinically and denies any significant symptoms at rest Creatinine remains stable and will continue with Lasix 40 mg IV twice a day for today Has had physical therapy and recommended home Has a 2-year step O2 saturation test and she will need 2 L at rest and 4 L with ambulation Awaiting cardiology evaluation today (2) Acute UTI (urinary tract infection): Plan: UA suggestive of infection Denies any significant Urine culture has been sent-has been growing gram-negative bacilli and the sensitivities pending Ceftriaxone has been started and will continue Urine is growing E. coli which is pansensitive Will change antibiotic to oral on discharge Did not get her IV ceftriaxone for the last few days. Remains symptomatic Has been started on oral amoxicillin from today Will continue oral antibiotic for 5 days in total (3) DVT (deep venous thrombosis): Plan: History of recurrent DVT on Eliquis D-dimer has been negative Doubt any pulmonary embolism on Eliquis Will continue Eliquis (4) Obesity hypoventilation syndrome: Plan: Has obstructive sleep apnea Has been on CPAP at home with oxygen Will advised to use her own CPAP Chronic respiratory failure on home oxygen Requested 3 L of oxygen with Will monitor while in the hospital Will start doxycycline for possible infective exacerbation She will have 2 L of oxygen at rest and 4 L with ambulation (5) Diabetes mellitus, type II: Plan: Has been on insulin Will put her on sliding scale on top of regular insulin and check hemoglobin A1c (6) CKD (chronic kidney disease), stage III: Plan: May have acute on chronic kidney impairment Will monitor BMP specially with the use of diuretic Creatinine has been improving even with intravenous Lasix 2 times a day Will monitor kidney function-remains stable (7) ELISSA on CPAP: Plan: Continue with CPAP with oxygen (8) HTN (hypertension): Plan: We will continue her current medications (9) HLD (hyperlipidemia): Plan: Continue statin (10) Morbid obesity: (11) Hypothyroidism: Plan: Continue replacement Chronic pain Has been taking Tylenol and Ultram as an outpatient Pain seems to be increased She cannot take any other narcotics except Ultram Will increase the dose of Ultram 100 mg every 8 hourly as needed while she is in the hospital We will go home with her pain medications as before DVT prophylaxis On Eliquis CODE STATUS Full Admission and Anticipated Discharge Date Admission Date: June 10, 2022 Subjective 06/11/2022 The patient was seen and examined in telemetry unit She has been feeling a little better but complains to have pain all over the body She denies any fever and or chills and denies any problem with urination No chest pain and/or palpitation 06/12/2022 The patient was seen and examined in telemetry unit She has been feeling much better today Denies any significant pain and no shortness of breath at rest 06/13/2022 The patient was seen and examined in telemetry unit She has been feeling much better today and sitting at the edge of the bed Denies any significant symptoms Her shortness of breath is improved a lot 06/14/2022 The patient was seen and examined in telemetry unit She has been feeling much better and diuresing enough Denies any significant symptoms and has had physical therapy She will need to stay another 24 hours and likely discharge tomorrow 06/15/2022 The patient was seen and examined in telemetry unit She has been feeling much better without any shortness of breath at rest She complains to have more swelling of the leg today Review of Systems Review of Systems: All systems reviewed and are unremarkable except as noted below Respiratory: No shortness of breath Physical Exam Physical Exam: Sitting at the edge of the bed without any acute distress Constitutional: well developed, well nourished, + ill appearing and + morbidly obese Eyes: PERRL, conjunctivae normal, anicteric sclerae ENMT: external ear and nose normal, oropharynx normal Neck: trachea midline, no thyromegaly Respiratory: + respiratory distress (Mild to moderate distress at rest) Auscultation: + diminished lung sounds; no crackles Cardiovascular: Rate/Rhythm: regular rate, regular rhythm and + tachycardic Heart Sounds: normal S1 and normal S2; no murmur Extremities: + edema (1+ edema bilateral) Gastrointestinal (Abdomen): Inspection/Auscultation: + abdomen distended and normal bowel sounds Percussion/Palpation: + abdomen tender and abdomen soft Musculoskeletal: No acute arthritis in any joint Neurologic: normal touch/pain/proprioception and moves all extremities; no focal motor deficits Psychiatric: A+Ox3, euthymic affect Lymphatic: no cervical or axillary lymphadenopathy Results & Data Results & Data ([facility]) Vital Signs (Past 12 Hours) Vital Signs Temp Pulse Pulse Pulse Pulse Pulse Pulse 06/15/22 09:26 06/15/22 09:24 94 H 98 H 98 H 101 H 06/15/22 07:42 87 06/15/22 07:28 37.5 C 84 06/15/22 04:45 36.4 C L 86 06/14/22 23:07 36.9 C 93 H Pulse Pulse Resp Resp Resp Resp Resp 06/15/22 09:26 06/15/22 09:24 93 H 97 H 16 20 20 20 06/15/22 07:42 06/15/22 07:28 22 06/15/22 04:45 16 06/14/22 23:07 22 Resp Resp BP Pulse Ox Pulse Ox Pulse Ox Pulse Ox 06/15/22 09:26 06/15/22 09:24 16 16 93 84 L 94 06/15/22 07:42 06/15/22 07:28 104/64 97 06/15/22 04:45 100/53 L 97 06/14/22 23:07 120/69 95 Pulse Ox Pulse Ox Pulse Ox O2 Del Method O2 Flow Rate O2 Flow Rate O2 Flow Rate 06/15/22 09:26 Nasal Cannula 5 06/15/22 09:24 81 L 91 78 L 2 3 06/15/22 07:42 06/15/22 07:28 Nasal Cannula 06/15/22 04:45 Nasal Cannula 5 06/14/22 23:07 Nasal Cannula 5 O2 Flow Rate O2 Flow Rate O2 Flow Rate 06/15/22 09:26 06/15/22 09:24 4 2 2 06/15/22 07:42 06/15/22 07:28 06/15/22 04:45 06/14/22 23:07 Laboratory Results [facility] 06/15/22 05:42 Sodium 137 Potassium 3.6 Chloride 98 Carbon Dioxide 32 BUN 20 Creatinine 1.24 H Glucose 195 H Calcium 8.6 Medications Administered Current Inpatient Medications Acetaminophen (Acetaminophen 500 Mg Tab) 1,000 mg PO Q6H PRN PRN Reason: Pain Stop: 07/11/22 15:52 Last Admin: 06/15/22 08:50 Dose: 1,000 mg Amoxicillin (Amoxicillin 500 Mg Cap) 500 mg PO BID ROBERT; Protocol Stop: 06/18/22 23:59 Last Admin: 06/15/22 08:43 Dose: 500 mg Apixaban (Apixaban 5 Mg Tablet) 5 mg PO BID ROBERT Stop: 07/10/22 20:59 Last Admin: 06/15/22 08:42 Dose: 5 mg Clonazepam (Clonazepam 0.5 Mg Tab) 0.5 mg PO BID PRN PRN Reason: anxiety Stop: 07/10/22 16:12 Last Admin: 06/15/22 08:50 Dose: 0.5 mg Cyclobenzaprine HCl (Cyclobenzaprine Hcl 10 Mg Tab) 10 mg PO HS PRN PRN Reason: Muscle Spasm Stop: 07/10/22 16:12 Last Admin: 06/10/22 23:16 Dose: 10 mg Dextrose (Dextrose 50% 50 Ml Syringe) 25 - 50 ml IV UD PRN; Protocol PRN Reason: Hypoglycemia Protocol Stop: 07/10/22 16:44 Dicyclomine HCl (Dicyclomine Hcl 20 Mg Tab) 20 mg PO QID PRN PRN Reason: abdominal pain Stop: 07/10/22 16:12 Docusate Sodium (Docusate Sodium 100 Mg Cap) 100 mg PO BID PRN PRN Reason: Constipation Stop: 07/10/22 16:12 Doxycycline Hyclate (Doxycycline Hyclate 100 Mg Cap) 100 mg PO BID ROBERT Stop: 06/17/22 20:59 Last Admin: 06/15/22 08:42 Dose: 100 mg Duloxetine HCl (Duloxetine Hcl 30 Mg Cap) 30 mg PO DAILY ROBERT Stop: 07/11/22 08:59 Last Admin: 06/15/22 08:43 Dose: 30 mg Duloxetine HCl (Duloxetine Hcl 60 Mg Cap) 60 mg PO QAM ROBERT Stop: 07/11/22 08:59 Last Admin: 06/15/22 08:43 Dose: 60 mg Furosemide (Furosemide 40 Mg Tab) 40 mg PO [id number] ROBERT Stop: 07/11/22 09:59 Last Admin: 06/15/22 08:42 Dose: 40 mg Gabapentin (Gabapentin 300 Mg Cap) 300 mg PO TID ROBERT Stop: 07/10/22 16:44 Last Admin: 06/15/22 08:42 Dose: 300 mg Glucagon (Glucagon For Inj 1 Mg Vial) 1 mg IM UD PRN; Protocol PRN Reason: Hypoglycemia Protocol Stop: 07/10/22 16:44 Glucose (Glucose 40% Gel 15 Gm Tube) 15 - 30 gm PO UD PRN; Protocol PRN Reason: Hypoglycemia Protocol Stop: 07/10/22 16:44 Glucose (Glucose 10 Tab/Tube) 4 - 8 tab PO UD PRN; Protocol PRN Reason: Hypoglycemia Protocol Stop: 07/10/22 16:44 Insulin Aspart (Insulin Aspart Per Unit) 0 units SC ACHS [facility] Stop: 07/10/22 16:44 Last Admin: 06/15/22 08:41 Dose: 8 units Insulin Glargine (Lantus Per Unit Charge) 40 units SQ HS ROBERT Stop: 07/10/22 20:59 Last Admin: 06/14/22 20:34 Dose: 40 units Levothyroxine Sodium (Levothyroxine Sodium 200 Mcg Tablet) 200 mcg PO QAM [facility] Stop: 07/11/22 08:59 Last Admin: 06/15/22 08:42 Dose: 200 mcg Levothyroxine Sodium (Levothyroxine Sodium 50 Mcg Tablet) 50 mcg PO QAM [facility] Stop: 07/11/22 08:59 Last Admin: 06/15/22 08:42 Dose: 50 mcg Magnesium Oxide (Magnesium Oxide 400 Mg Tab) 400 mg PO BID@1200,1800 [facility] Stop: 07/15/22 11:59 Meclizine HCl (Meclizine 12.5 Mg Tab) 12.5 mg PO TID PRN PRN Reason: Dizziness Stop: 07/10/22 16:12 Miscellaneous (*Trulicity*Order Awaiting Action) 1 each N/A QS [facility] Stop: 07/11/22 00:00 Last Admin: 06/15/22 08:42 Dose: Not Given Miscellaneous (Carbohydrates For Hypoglycemia ) 15 - 30 gm PO UD PRN PRN Reason: Hypoglycemia Treatment Stop: 07/10/22 16:44 Nortriptyline HCl (Nortriptyline Hcl 25 Mg Cap) 50 mg PO HS ROBERT Stop: 07/10/22 20:59 Last Admin: 06/14/22 20:51 Dose: 50 mg Pantoprazole Sodium (Pantoprazole 40 Mg Tab) 40 mg PO QAM [facility] Stop: 07/14/22 15:44 Last Admin: 06/15/22 08:42 Dose: 40 mg Potassium Chloride (Potassium Chloride Crtab 20 Meq Tabcr) 20 meq PO QAM ROBERT Stop: 07/11/22 09:59 Last Admin: 06/15/22 08:43 Dose: 20 meq Ropinirole HCl (Ropinirole Hcl 2 Mg Tablet) 2 mg PO HS [facility] Stop: 07/10/22 20:59 Last Admin: 06/14/22 20:51 Dose: 2 mg Tramadol HCl (Tramadol Hcl 50 Mg Tablet) 100 mg PO Q8H PRN PRN Reason: Pain Stop: 07/11/22 10:54 Last Admin: 06/14/22 20:53 Dose: 100 mg Trazodone HCl (Trazodone Hcl 50 Mg Tab) 50 mg PO HS [facility] Stop: 07/10/22 20:59 Last Admin: 06/14/22 20:51 Dose: 50 mg (1) DVT (deep venous thrombosis) Affected thrombotic vein of extremity: unspecified vein of extremity Chronicity: acute DVT location: lower extremity Laterality: right Qualified Code(s): I82.401 - Acute embolism and thrombosis of unspecified deep veins of right lower extremity
--- NOTE | 2022-06-15 11:31 | Cardiology Progress Note ---
Date of Service June 15, 2022 Assessment & Plan (1) Acute respiratory failure with hypoxia: (2) Obesity hypoventilation syndrome: (3) Acute on chronic diastolic HF (heart failure): (4) Pulmonary edema: (5) Acute UTI (urinary tract infection): (6) Elevated troponin: (7) HTN (hypertension): Plan Patient admitted with worsening hypoxia, acute on chronic respiratory failure with evidence of pulm edema/volume overload consistent with acute on chronic diastolic HF. Volume status improved with IV diuretic therapy. Positive fluid balance recorded over the past 24 hours, however, continued weight loss documented. Monitor I+O's. Daily weight with standing scale. Blood pressure improved with IV diuresis. Patient would benefit from BOOGIE inhibitor or ARB, however, remains borderline hypotensive today. Continues to complain of right lower extremity swelling. Recommend venous duplex to exclude DVT. She has minimally elevated troponin, likely due to CHF exacerbation, hypoxia. No acute EKG changes. Echocardiogram demonstrates hyperdynamic LV function without regional wall motion abnormality. No complaints of chest pain. Continue antibiotics for UTI and cellulitis per hospitalist. Admission and Anticipated Discharge Date Admission Date: June 10, 2022 Subjective Patient seen examined the bedside. Continues to note pruritus and discomfort involving her right lower extremity. Edema improved. Lasix reduced to 40 mg daily. Renal function remained stable. Review of Systems Review of Systems: All systems reviewed & are unremarkable except as noted in Subjective Physical Exam Constitutional: + morbidly obese Respiratory: normal respiratory effort; no respiratory distress Auscultation: no crackles, no rales, no rhonchi and no wheezes Cardiovascular: Rate/Rhythm: regular rate and regular rhythm Heart Sounds: normal S1 and normal S2; no murmur Vessels: no JVD and no carotid bruit Extremities: + edema (Bilateral pretibial edema, right >left, mild RLE erythema) Gastrointestinal (Abdomen): Inspection/Auscultation: abdomen not distended Percussion/Palpation: abdomen soft; abdomen nontender, no guarding and abdomen not rigid Neurologic: CN's II-XI intact bilaterally and moves all extremities; no focal motor deficits Psychiatric: A+Ox3, euthymic affect Results & Data ([facility]) Vital Signs (Past 12 Hours) Vital Signs Temp Pulse Pulse Pulse Pulse Pulse Pulse 06/15/22 09:26 06/15/22 09:24 94 H 98 H 98 H 101 H 06/15/22 07:42 87 06/15/22 07:28 37.5 C 84 06/15/22 04:45 36.4 C L 86 Pulse Pulse Resp Resp Resp Resp Resp 06/15/22 09:26 06/15/22 09:24 93 H 97 H 16 20 20 20 06/15/22 07:42 06/15/22 07:28 22 06/15/22 04:45 16 Resp Resp BP Pulse Ox Pulse Ox Pulse Ox Pulse Ox 06/15/22 09:26 06/15/22 09:24 16 16 93 84 L 94 06/15/22 07:42 06/15/22 07:28 104/64 97 06/15/22 04:45 100/53 L 97 Pulse Ox Pulse Ox Pulse Ox O2 Del Method O2 Flow Rate O2 Flow Rate O2 Flow Rate 06/15/22 09:26 Nasal Cannula 5 06/15/22 09:24 81 L 91 78 L 2 3 06/15/22 07:42 06/15/22 07:28 Nasal Cannula 06/15/22 04:45 Nasal Cannula 5 O2 Flow Rate O2 Flow Rate O2 Flow Rate 06/15/22 09:26 06/15/22 09:24 4 2 2 06/15/22 07:42 06/15/22 07:28 06/15/22 04:45 (1) Pulmonary edema Chronicity: acute Qualified Code(s): J81.0 - Acute pulmonary edema
[2022-06-15] MEDS ORDERED: MAGNESIUM OXIDE 400 MG TAB PO SCH (12:00)
--- NOTE | 2022-06-15 13:56 | Ultrasound Report ---
US venous doppler LE RT CLINICAL HISTORY: Asymmetric edema TECHNIQUE: Right lower extremity real-time compression venous ultrasound with Color Doppler imaging. Utilizing real-time ultrasonic imaging multiple real time high-resolution ultrasonic images with comp ression and noncompression maneuvers of the deep venous system in addition to color doppler imaging w ere performed from the common femoral vein through the proximal calf veins. COMPARISON: Comparison is made to right lower extremity ultrasound 11/27/2021 FINDINGS: Chronic appearing stranding is seen in the popliteal vein which may represent nonocclusive thrombus. Limited evaluation of the calf vessels without evidence of thrombus. Impression: Chronic appearing nonocclusive DVT in the right popliteal vein, similar compared to prior exam. ACT 112: Negative or not required by law. Electronically signed by: Mook Guido M.D. 06/15/2022 1:55 PM
--- NOTE | 2022-06-16 09:45 | Discharge Summary ---
Date of Service June 15, 2022 Admission HPI Per Admitting Provider She is a 67-year-old morbidly obese female with significant past medical history of chronic diastolic heart failure, hypertensive heart disease, type 2 diabetes on insulin, recurrent deep vein thrombosis on Eliquis, chronic hypoxemic respiratory failure, hyperlipidemia, ELISSA on CPAP at night with oxygen, restless leg syndrome and other medical condition as mentioned below apparently has been complaining of shortness of breath for the last 2 weeks. She also has chest tightness associated with it and she has been increasing her oxygen with ambulation from 3 to 4 to 5 L to improve her breathing. She has cough with minimal phlegm but denies any fever and or chills. She has chronic leg swelling and denies any increasing swelling for the last few weeks or so. She denies any headache, any abdominal pain nausea or vomiting or any problem with urine and bowel habit. She was recently prescribed with prednisone and doxycycline but has not been started yet. She was moderately short of breath in emergency room and apparent test showed that she has CHF/bronchitis and may have UTI. Her D-dimer was normal and troponin is mildly elevated. Will be admitted to telemetry unit for continuation of care. Admission Exam Per Admitting Provider Physical Exam: Lying in bed with moderate distress due to shortness of breath Constitutional: well developed, well nourished, + ill appearing and + morbidly obese Eyes: PERRL, conjunctivae normal, anicteric sclerae ENMT: external ear and nose normal, oropharynx normal Neck: trachea midline, no thyromegaly Minimal swelling of bilateral cervical nodes Respiratory: + respiratory distress (Mild to moderate distress at rest) Auscultation: + diminished lung sounds and + crackles (Bibasilar crackles more on the right than the left) Cardiovascular: Rate/Rhythm: regular rate, regular rhythm and + tachycardic Heart Sounds: normal S1 and normal S2; no murmur Extremities: + edema (1+ edema bilateral) Gastrointestinal (Abdomen): Inspection/Auscultation: + abdomen distended and normal bowel sounds Percussion/Palpation: + abdomen tender and abdomen soft Musculoskeletal: No acute arthritis in any joint Neurologic: Alert, awake and oriented x3. No focal sensory or no motor deficit appreciated Lymphatic: Mild enlargement of the cervical lymph nodes Principal Diagnosis Acute on chronic diastolic heart failure, acute UTI, obesity hypoventilation syndrome, type 2 diabetes, CKD Discharge Exam Sitting at the edge of the bed without any acute distress Constitutional well developed, well nourished, + ill appearing and + morbidly obese Eyes PERRL, conjunctivae normal, anicteric sclerae ENMT external ear and nose normal, oropharynx normal Neck trachea midline, no thyromegaly Respiratory + respiratory distress (Mild to moderate distress at rest) Auscultation: + diminished lung sounds; no crackles Cardiovascular Rate/Rhythm: regular rate, regular rhythm and + tachycardic Heart Sounds: normal S1 and normal S2; no murmur Extremities: + edema (1+ edema bilateral) Gastrointestinal (Abdomen) Inspection/Auscultation: + abdomen distended and normal bowel sounds Percussion/Palpation: + abdomen tender and abdomen soft Neurologic normal touch/pain/proprioception and moves all extremities; no focal motor deficits Psychiatric A+Ox3, euthymic affect Lymphatic no cervical or axillary lymphadenopathy Discharge Data Allergies Allergy/AdvReac Type Severity Reaction Status Date / Time morphine Allergy Severe VIOLENT Verified 12/26/21 00:54 REACTION-"ALMOST " SWELLING tetanus toxoid, adsorbed Allergy Intermediate PASSED OUT Verified 12/26/21 00:54 AND GOT SICK WHEN A CHILD bupropion [From Wellbutrin] AdvReac Intermediate Recurrent Verified 12/26/21 00:54 falls as per patient codeine AdvReac Intermediate Hallucinati Verified 12/26/21 00:54 ons empagliflozin AdvReac Intermediate YEAST Verified 12/26/21 00:54 [From Jardiance] INFECTIONS heparin AdvReac Intermediate HIT; FLUID Verified 12/26/21 00:54 IN LUNGS hydrocodone [From Vicodin] AdvReac Intermediate sleepiness Verified 12/26/21 00:54 Consultations 06/10/22 13:26 ED Decision to Admit Stat 06/10/22 13:53 Consult Cardiology Routine Ordered Studies 06/15/22 11:31 US venous duplex leg [US venous doppler LE RT] Urgent Hospital Course (1) Acute on chronic diastolic heart failure: Presented with shortness of breath and requiring more oxygen for the last 2 weeks Chest x-ray evidence of pulmonary edema Likely due to acute on chronic diastolic heart failure Troponin slightly elevated likely secondary to his stress-induced elevation-we will get serial troponin No significant EKG changes to doubt any ACS Will need intravenous Lasix,Lasix 40mg IV x1 given today Echo of the heart showed-no regional wall motion abnormalities, LV is hyperdynamic, EF was more than 70%, RV is grossly normal, RV function is normal, grade 1 diastolic dysfunction, no significant valvular stenosis Cardiology consulted-appreciate input and recommendation Started on Lasix 40 mg IV twice daily She has been feeling much better clinically and denies any significant symptoms at rest Creatinine remains stable and will continue with Lasix 40 mg IV twice a day for today Has had physical therapy and recommended home Has a 2-year step O2 saturation test and she will need 2 L at rest and 4 L with ambulation Awaiting cardiology evaluation today (2) Acute UTI (urinary tract infection): UA suggestive of infection Denies any significant Urine culture has been sent-has been growing gram-negative bacilli and the sensitivities pending Ceftriaxone has been started and will continue Urine is growing E. coli which is pansensitive Will change antibiotic to oral on discharge Did not get her IV ceftriaxone for the last few days. Remains symptomatic Has been started on oral amoxicillin from today Will continue oral antibiotic for 5 days in total (3) DVT (deep venous thrombosis): History of recurrent DVT on Eliquis D-dimer has been negative Doubt any pulmonary embolism on Eliquis Will continue Eliquis (4) Obesity hypoventilation syndrome: Has obstructive sleep apnea Has been on CPAP at home with oxygen Will advised to use her own CPAP Chronic respiratory failure on home oxygen Requested 3 L of oxygen with Will monitor while in the hospital Will start doxycycline for possible infective exacerbation She will have 2 L of oxygen at rest and 4 L with ambulation (5) Diabetes mellitus, type II: Has been on insulin Will put her on sliding scale on top of regular insulin and check hemoglobin A1c (6) CKD (chronic kidney disease), stage III: May have acute on chronic kidney impairment Will monitor BMP specially with the use of diuretic Creatinine has been improving even with intravenous Lasix 2 times a day Will monitor kidney function-remains stable (7) ELISSA on CPAP: Continue with CPAP with oxygen (8) HTN (hypertension): We will continue her current medications (9) HLD (hyperlipidemia): Continue statin (10) Morbid obesity: (11) Hypothyroidism: Continue replacement Chronic pain Has been taking Tylenol and Ultram as an outpatient Pain seems to be increased She cannot take any other narcotics except Ultram Will increase the dose of Ultram 100 mg every 8 hourly as needed while she is in the hospital We will go home with her pain medications as before DVT prophylaxis On Eliquis CODE STATUS Full Total Time Total Time Spent Total Time Spent (In Minutes): 45 minutes Discharge Plan Discharge Items Patient Disposition: Home - Self-Care Reason For Visit: CHF Discharge Diagnosis: Acute on chronic diastolic heart failure, acute UTI, obesity hypoventilation syndrome, type 2 diabetes, CKD Condition on Discharge: Fair Activity: Resume your previous activity Non-emergency contact: Primary Care Provider Call non-emergency contact if: you have any medication questions and your symptoms worsen Follow-up/Referrals: Galdino Andujar DO [Physician] - (Date & Time 06/16/2022 3:00 PM Provider Galdino Andujar DO Department Family [facility] [address] [facility], [place] ) Diet: Carb Consistent or DM2 Fluids: 1800ml (7 cups) Addtl Attending Provider Instructions: Please take precautions to avoid falls Take your medications as advised-please finish the course of antibiotics Your furosemide has been increased and your potassium supplement has been increased to Please give appointment with your healthcare providers Please keep taking oxygen as advised and use your CPAP/BIPAP as you have been using Pending Studies at Discharge: No Stand-Alone Forms: My [employer], Smoking Cessation Medications and DC Order Prescriptions: New amoxicillin 500 mg Capsule 500 mg PO BID 3 Days Qty: 6 0RF furosemide 40 mg Tablet 40 mg PO BID17 30 Days Qty: 60 0RF doxycycline hyclate 100 mg Capsule 100 mg PO BID 5 Days Qty: 10 0RF potassium chloride 20 mEq Tablet,Er Particles/Crystals 20 meq PO QAM Qty: 30 0RF magnesium oxide 400 mg (241.3 mg magnesium) Tablet 400 mg PO BID@1200,1800 Qty: 60 0RF Continued levothyroxine 200 mcg Tablet 200 mcg PO QAM Rx Instructions: TAKE ONE 200 MCG TABLET ALONG WITH ONE 50 MCG TABLET TO EQUAL 250 MCG DAILY DOSE omeprazole 20 mg Capsule,Delayed Release(Dr/Ec) 20 mg PO HS gabapentin 300 mg Capsule 300 mg PO TID trazodone 50 mg tablet 50 mg PO HS duloxetine 30 mg Capsule,Delayed Release(Dr/Ec) 30 mg PO DAILY Rx Instructions: TOTAL DOSE 90 MG--TAKES WITH 60 MG CAP. Tresiba FlexTouch U-100 100 unit/mL (3 mL) Insulin Pen 60 unit SUBCUT HS cyclobenzaprine 10 mg Tablet 10 mg PO HS PRN (Reason: Muscle Spasm) duloxetine 60 mg capsule,delayed release(DR/EC) 60 mg PO QAM Rx Instructions: TOTAL DOSE 90 MG--TAKES WITH 30 MG CAP. tramadol 50 mg tablet 50 mg PO Q8H PRN (Reason: Pain) insulin aspart U-100 [Novolog Flexpen U-100 Insulin] 100 unit/mL (3 mL) insulin pen 40 unit SUBCUT WM Rx Instructions: plus sliding scale 1 unit for every 25 units bg >150 dicyclomine 20 mg tablet 20 mg PO QID PRN (Reason: abdominal pain) nortriptyline [Pamelor] 50 mg capsule 50 mg PO HS levothyroxine 50 mcg tablet 50 mcg PO QAM Rx Instructions: TOTAL DOSE 250 MCG--TAKES WITH 200 MCG TAB. docusate sodium [Colace] 100 mg capsule 100 mg PO BID PRN (Reason: Constipation) meclizine 12.5 mg tablet 12.5 mg PO TID PRN (Reason: Dizziness) clonazepam 0.5 mg Tablet 0.5 mg PO BID PRN (Reason: anxiety) Qty: 0 0RF ropinirole 2 mg Tablet 2 mg PO HS Trulicity 4.5 mg/0.5 mL pen injector 4.5 mg SUBCUT WK Rx Instructions: TAKE THIS MED EVERY TUESDAY. Eliquis 5 mg (74 tabs) tablets,dose pack 5 mg PO BID Discontinued furosemide [Lasix] 40 mg tablet 20 mg PO BID Rx Instructions: 1/2 tablet dose potassium chloride 10 mEq tablet,ER particles/crystals 10 meq PO Q OTHER DAY Discharge Orders: Discharge Order (Routine); Ordered 06/15/22 Ordered By: Mignon Loya/Other Patient Handouts: High Blood Sugar (Hyperglycemia), Managing Type 2 Diabetes Admission Data Admit Date/Time: 06/10/22 14:16 Attending Provider: Mignon Crooks Admit Provider: Mignon Crooks Primary Care Provider: Kevin Whiteside Other Providers: Mignon Crooks ; Kedar Cevallos ; [facility] Other Interventions: Discharge Summary Assessment (RN) Last Done: 06/15/22 14:39
== END 2022-06-15 16:37 | disposition home or self-care (01) | DRG 291 ==
LOC: ED 10:15 → 2S 14:16

== ENCOUNTER 2022-07-15 10:22 | Inpatient (IN) ==
[2022-07-15] MEDS ORDERED: SODIUM CHLORIDE 0.9% 1000ML 1,000 ML IV SCH (13:00)
[2022-07-15 13:11] LABS: Basophils # (auto) 0.09 K/uL (0-0.2); Basophils % (auto) 0.9 %; Eosinophils # (auto) 0.12 K/uL (0-0.50); Eosinophils % (auto) 1.2 %; Hematocrit (blood only) 40.4 % (34.1-44.9); Hemoglobin 13.3 g/dl (12.0-16.0); Immature Granulocytes # (auto) 0.09 K/uL (0.00-0.02); Immature Granulocytes % (auto) 0.9 %; Lymphocytes # (auto) 1.64 K/uL (1.2-3.4); Lymphocytes % (auto) 16.7 %; Mean Corpuscular Hemoglobin 30.4 pg (25.0-34.0); Mean Corpuscular Hgb Conc 32.9 g/dL (32.0-36.0); Mean Corpuscular Volume 92.4 fL (80.0-100.0); Mean Platelet Volume 10.6 fL (9.4-12.3); Monocytes # (auto) 0.82 K/uL (0.24-0.82); Monocytes % (auto) 8.3 %; Neutrophils # (auto) 7.07 K/uL (1.4-6.5); Platelet Count 296 K/uL (130-400); RDW Coefficient of Variation 15.2 % (11.5-14.5); RDW Standard Deviation 51.6 fL (36.4-46.3); Red Blood Count 4.37 M/uL (3.93-5.22); White Blood Count 9.83 K/ul (4.8-10.8)
--- NOTE | 2022-07-15 13:32 | XRay Report ---
XR chest 1V portable CLINICAL HISTORY: weakness TECHNIQUE: Single frontal radiograph of the chest was obtained. Comparison: Comparison is made to chest radiograph 07/14/2022 FINDINGS: No lines and tubes are seen. Cardiomegaly is noted. A calcified aortic arch is seen. Reticular inters titial opacities are seen. No evidence of pleural effusion or pneumothorax. IMPRESSION: Interstitial lung disease and cardiomegaly again seen. No definite acute abnormality is noted superim posed against this background although mild pulmonary edema cannot be entirely excluded. ACT 112: Negative or not required by law. Electronically signed by: Mook Guido M.D. 07/15/2022 1:30 PM
[2022-07-15 13:33] LABS: Appearance Urine Clear (Clear); Bacteria Urine Automated Negative (Negative); Bilirubin Urine Negative (Negative); Blood Urine 2+ (Negative); Cast Urine Automated 0 /lpf (0-5); Color Urine Yellow; Epithelial Cell Urine Auto >30 /lpf (0-5); Glucose Urine UA Negative (Negative); Ketones Urine Negative (Negative); Leukocyte Esterase Urine Trace (Negative); Nitrite Urine Negative (Negative); Protein Urine Negative (Negative); Specific Gravity Urine 1.013 (1.000-1.030); Urobilinogen Urine Negative (Negative); pH Urine 5.5 (4.5-7.5)
[2022-07-15 13:36] LABS: Troponin I High Sensitivity 162.5 pg/ml (0-14)
[2022-07-15] MEDS ORDERED: ASPIRIN CHEW 324 MG PO STA (13:45)
[2022-07-15 13:48] LABS: Albumin Globulin Ratio 1.1 (0.9-2); Albumin Level 3.8 gm/dl (3.4-5.0); BUN Creatinine Ratio 14.7 (10-20); Bilirubin,Total 0.6 mg/dl (0.2-1.0); Calcium 8.6 mg/dl (8.5-10.1); Creatinine Clr Calc Pharmacy 42.3 ml/min; Est GFR (African American) 30.9 ml/min; Est GFR (Non-African American) 26.6 ml/min; Globulin 3.4 gm/dl (2.5-4.0); Magnesium 1.5 mg/dl (1.7-2.4); Potassium 3.8 mmol/L (3.5-5.1); Total Protein 7.2 gm/dl (6.0-8.3)
[2022-07-15 13:55] LABS: Influenza A virus by PCR Negative (Neg); Influenza B virus by PCR Negative (Neg); RSV by PCR Negative (Neg); SARS CoV2 RNA(COVID-19)Cepheid NEGATIVE (Negative)
[2022-07-15] MEDS ORDERED: FUROSEMIDE 40 MG/4 ML VIAL IV ONE (14:08)
[2022-07-15] MEDS: MAGNESIUM SULFATE / D5W 1 GM/100 ML BAG IV SCH ×2 (14:33→16:10)
--- NOTE | 2022-07-15 15:32 | History & Physical Report ---
Date of Service July 15, 2022 Assessment & Plan (1) Cat bite: (2) Multiple falls: (3) Non compliance w medication regimen: (4) Acute and chronic respiratory failure with hypoxia: (5) Chronic diastolic heart failure: (6) Hypomagnesemia: (7) DVT (deep venous thrombosis): (8) Acute on chronic kidney failure: (9) HTN (hypertension): (10) Depression with anxiety: (11) Hypothyroidism: (12) ELISSA on CPAP: Plan This is a 67yo F with a PMH of morbid obesity, chronic diastolic heart failure, hypertensive heart disease, type 2 diabetes, recurrent DVT on Eliquis, obesity hypoventilation syndrome, chronic hypoxic respiratory failure on 2-4L NC @ baseline, ELISSA on CPAP with oxygen, RLS and other medical problems listed below who presents after a fall in her apartment. Multiple falls Generalized weakness Noncompliant with medication regimen Falls at home likely exacerbated by running out of oxygen for the past 2 days. Patient requires 2 to 4 L nasal cannula oxygen at baseline due to obesity hypoventilation, ELISSA, CHF Expect improvement with oxygen therapy Will need to coordinate care with transition to outpatient with [facility] at home. Patient recently moved into a new apartment and is unsure of resources PT/OT evaluation Fall precautions Elevated troponin Troponin elevated to 162.5 on admission --> repeat 160.5 Doubt ACS given no chest pain, EKG without significant changes Likely demand ischemia given acute on chronic respiratory failure, lack of oxygen at home, CKD Cardiology consulted. Recently admitted for decompensated heart failure with echo performed last month with preserved EF, no wall motion abnormality Anticoagulated on Eliquis Acute on chronic respiratory failure with hypoxia Obesity hypoventilation syndrome Saturating 99% on 6 L nasal cannula, which is more than baseline. Recent decompensated heart failure with increase Lasix to 40 mg twice daily Unsure of compliance given recent move Given 40 mg IV Lasix in ED Strict I's and O's, daily weights, reassess volume status in AM Hypomagnesemia Initial magnesium 1.5. Replaced. Recheck tomorrow Cat bite cellulitis Afebrile, no leukocytosis. Continue Augmentin course prescribed yesterday. Blood cultures from yesterday's ED visit pending Acute on chronic CKD III Cr 1.91 (baseline ~1.5), in setting of recently increased diuretics. Continue to monitor ELISSA on CPAP CPAP HS with oxygen Morbid obesity BMI 54.3. Discussed strategies for weight loss and importance for her overall health Diabetes mellitus, type II BSG elevated at 253 but did not take insulin this morning Continue basal/bolus insulin while admitted Repeat a1c in AM BSG AC HS Mood disorder Fibromyalgia Continue duloxetine, nortriptyline, gabapentin, clonazepam PRN Chronic pain Continue PRN tramadol, tylenol DVT Ppx: Eliquis Code status: FULL PCP: Pratima Dispo: Admitted to med tele Patient seen in collaboration with Dr. Eli. Please see addendum. History of Present Illness Chief Complaint: weakness Primary Care Provider: Galdino Andujar DO This is a 67yo F with a PMH of morbid obesity, chronic diastolic heart failure, hypertensive heart disease, type 2 diabetes, recurrent DVT on Eliquis, obesity hypoventilation syndrome, chronic hypoxic respiratory failure on 2-4L NC @ baseline, ELISSA on CPAP with oxygen, RLS and other medical problems listed below who presents after a fall in her apartment. Was seen in the ED yesterday after falling and imaging was done without evidence of acute traumatic injury. Had a cat bite puncture wound for which she was prescribed Augmentin but has not yet had prescription filled. Returned back to her apartment and when she stood up earlier today, she felt her legs go out from under her and she fell onto her buttocks. Denies loss of consciousness or head trauma. Has been feeling fatigued and generally weak over the past 2 days but also admits to running out of oxygen. States new supplies were delivered but she was unsure how to set things up. Is a [facility] at home patient but they have not yet visited her at her new apartment which she recently moved into. Usually requires 2 L of oxygen at rest and up to 3-4 with exertion. Continues to have chronic bilateral lower extremity pain, fatigue and pain in lower back which are all chronic and unchanged per patient. No fever, chills, headache, chest pain, nausea, vomiting, abdominal pain, dysuria, diarrhea or constipation. Does have some redness and tenderness to left hand from cat bite puncture wound. Of note, was admitted from 06/10-06/16 for decompensated heart failure with echo showing preserved EF and grade 1 diastolic dysfunction. No regional wall motion abnormalities identified. Lasix increased to 40mg BID on discharge. Allergies Allergy/AdvReac Type Severity Reaction Status Date / Time morphine Allergy Severe VIOLENT Verified 12/26/21 00:54 REACTION-"ALMOST " SWELLING tetanus toxoid, adsorbed Allergy Intermediate PASSED OUT Verified 12/26/21 00:54 AND GOT SICK WHEN A CHILD bupropion [From Wellbutrin] AdvReac Intermediate Recurrent Verified 12/26/21 00:54 falls as per patient codeine AdvReac Intermediate Hallucinati Verified 12/26/21 00:54 ons empagliflozin AdvReac Intermediate YEAST Verified 12/26/21 00:54 [From Jardiance] INFECTIONS heparin AdvReac Intermediate HIT; FLUID Verified 12/26/21 00:54 IN LUNGS hydrocodone [From Vicodin] AdvReac Intermediate sleepiness Verified 12/26/21 00:54 Home Medications Medication Instructions Recorded Confirmed Type levothyroxine 200 mcg tablet 200 mcg PO QAM 06/09/18 07/15/22 History omeprazole 20 mg capsule,delayed 20 mg PO HS 06/09/18 07/15/22 History release cyclobenzaprine 10 mg tablet 10 mg PO HS PRN Muscle Spasm 12/08/18 07/15/22 History duloxetine 60 mg capsule,delayed 60 mg PO QAM 12/23/18 07/15/22 History release gabapentin 300 mg capsule 300 mg PO BID 05/09/19 07/15/22 History duloxetine 30 mg capsule,delayed 30 mg PO DAILY 01/25/20 07/15/22 History release trazodone 50 mg tablet 50 mg PO HS 01/25/20 07/15/22 History tramadol 50 mg tablet 50 mg PO Q8H PRN Pain 07/19/20 07/15/22 History insulin degludec 100 unit/mL (3 60 unit subcut HS 11/24/20 07/15/22 History mL) subcutaneous pen (Tresiba FlexTouch U-100 insulin) dicyclomine 20 mg tablet 20 mg PO QID PRN abdominal pain 03/27/21 07/15/22 History docusate sodium 100 mg capsule 100 mg PO BID PRN Constipation 03/27/21 07/15/22 History (Colace) insulin aspart U-100 100 unit/mL 40 unit subcut WM 03/27/21 07/15/22 History (3 mL) subcutaneous pen (Novolog Flexpen U-100 Insulin aspart) levothyroxine 50 mcg tablet 50 mcg PO QAM 03/27/21 07/15/22 History meclizine 12.5 mg tablet 12.5 mg PO TID PRN Dizziness 03/27/21 07/15/22 History nortriptyline 50 mg capsule 50 mg PO HS 03/27/21 07/15/22 History (Pamelor) clonazepam 0.5 mg tablet 0.5 mg PO BID PRN anxiety #0 tabs 03/28/21 07/15/22 Rx ropinirole 2 mg tablet 2 mg PO HS 09/20/21 07/15/22 History dulaglutide 4.5 mg/0.5 mL 4.5 mg subcut WK 10/15/21 07/15/22 History subcutaneous pen injector (Trulicity) apixaban 5 mg (74 tabs) tablets in 5 mg PO BID 12/26/21 07/15/22 History a dose pack (Eliquis) magnesium oxide 400 mg (241.3 mg 400 mg PO BID@1200,1800 #60 tabs 06/15/22 07/15/22 Rx magnesium) tablet amoxicillin 875 mg-potassium 1 tab PO BID #20 tabs 07/14/22 07/15/22 Rx clavulanate 125 mg tablet clotrimazole 10 mg jimena 10 mg PO UD 07/14/22 07/15/22 History potassium chloride 20 mEq 20 meq PO BID17 07/14/22 07/15/22 History tablet,extended release(part/cryst) albuterol sulfate 90 mcg/actuation 2 inh inhalation Q4H PRN Shortness 07/15/22 07/15/22 History aerosol inhaler Of Breath Or Wheezing azelastine 137 mcg (0.1 %) nasal 1 spray intranasal AMHS 07/15/22 07/15/22 History spray aerosol furosemide 40 mg tablet 40 mg PO BID 07/15/22 07/15/22 History metformin 500 mg tablet,extended 500 mg PO DAILY 07/15/22 07/15/22 History release 24 hr Past Med/Surg History Medical History Carotid stenosis, right CKD (chronic kidney disease), stage III Depression with anxiety Diabetes Diabetes mellitus, type II Fibromyalgia GERD (gastroesophageal reflux disease) History of DVT (deep vein thrombosis) History of pulmonary embolism s/p zoraida filter HIT (heparin-induced thrombocytopenia) HLD (hyperlipidemia) HTN (hypertension) Hypothyroidism Morbid obesity ELISSA on CPAP Presence of IVC filter RLS (restless legs syndrome) Sepsis Subclavian artery stenosis Surgical History History of cholecystectomy History of colon resection secondary to R colon perforation, resected treated with colostomy and eventual reversal in 2008, Dr. Lerma History of thyroidectomy, total History of total right knee replacement History of tracheostomy 2010, secondary to acute resp failure secondary to pneumonia, transferred to [facility] Family History Father , age 74 Lung cancer Mother , age 45 Cirrhosis Social History (Updated 07/15/22 @ 15:52 by Varsha Duncan PA-C) Smoking Status: Never smoker Cigarettes Per Day: 15 pack year hx; Second Hand Exposure: No; Hx Alcohol Use: No Hx Substance Use: No Preferred Language: Urdu Communication Ability: Effective Auto Body Man Required: No Beliefs That Will Affect Care: None marital status: Single Current Living Situation: Alone How many Children do You have: 0 Other Information That Helps Us Care for You: No Feels Safe at Home: Yes Safety Concerns: Feels Safe At This Time Assistive Devices: Cane, Glasses and Walker Review of Systems Review of Systems: At least ten systems reviewed and negative except as noted in the HPI. Physical Exam Physical Exam: General Appearance: WD/WN, vitals as above, NAD, lying in bed, morbidly obese Head: normocephalic, atraumatic Eyes: normal inspection, PERRL, conjunctivae normal, anicteric sclerae ENT: external ear and nose normal, oropharynx normal Neck: normal visual inspection, trachea midline, no thyromegaly Respiratory: normal respiratory effort, crackles R base, no wheeze or rhonchi. No accessory muscle use Cardiovascular: regular rate, rhythm, no murmur, normal peripheral pulses, trace BLE edema. Vessels: no JVD Chest: normal inspection of chest Abdomen/GI: normal bowel sounds, soft, nontender, no hepatosplenomegaly Extremities/Musculoskeletal: no cyanosis or clubbing, extremities motor strength 5/5 Neurologic: PERRL, EOMI, accommodation nl, no face palsy, no dysarthria, CN's II-XI intact bilaterally and moves all extremities Psychiatric: A+Ox3, euthymic affect Skin: no rashes, normal color, warm/dry. + R dorsum of hand with puncture wound and surrounding erythema, warmth. BLE with erythema and warmth but non-tender Results & Data Results & Data ([facility]) Vital Signs (Past 12 Hours) Vital Signs Temp Pulse Pulse Resp BP BP Pulse Ox 07/15/22 15:00 96 H 26 H 07/15/22 15:00 97/50 L 07/15/22 14:30 100 H 30 H 100 07/15/22 14:30 103/62 07/15/22 14:02 97 H 33 H 07/15/22 14:02 98/65 L 07/15/22 13:30 102 H 24 98 07/15/22 13:30 90/73 L 07/15/22 14:30 96 07/15/22 14:30 102 H 20 103/62 96 07/15/22 13:10 135/80 07/15/22 13:10 102 H 23 99 07/15/22 13:00 103 H 24 95 07/15/22 12:31 116/84 07/15/22 12:31 105 H 24 95 07/15/22 12:30 104 H 25 H 93 07/15/22 12:30 101/86 07/15/22 12:08 176/94 H 07/15/22 12:08 104 H 31 H 95 07/15/22 12:00 104 H 28 H 92 07/15/22 11:31 108 H 28 H 91 07/15/22 11:30 114/75 07/15/22 10:34 36.3 C L 83 18 102/69 100 O2 Del Method O2 Flow Rate 07/15/22 15:00 07/15/22 15:00 07/15/22 14:30 07/15/22 14:30 07/15/22 14:02 07/15/22 14:02 07/15/22 13:30 07/15/22 13:30 07/15/22 14:30 Nasal Cannula 1 07/15/22 14:30 Nasal Cannula 1 07/15/22 13:10 07/15/22 13:10 Nasal Cannula 6 07/15/22 13:00 07/15/22 12:31 07/15/22 12:31 07/15/22 12:30 07/15/22 12:30 07/15/22 12:08 07/15/22 12:08 07/15/22 12:00 07/15/22 11:31 07/15/22 11:30 07/15/22 10:34 Nasal Cannula 3 Laboratory Results Short CBC 07/15/22 Range/Units 12:01 WBC 9.83 (4.8-10.8) K/ul Hgb 13.3 (12.0-16.0) g/dl Hct 40.4 (34.1-44.9) % Plt Count 296 (130-400) K/uL BMP 07/15/22 12:01 Sodium 136 Potassium 3.8 Chloride 97 L Carbon Dioxide 29 BUN 28 H Creatinine 1.91 H Glucose 253 H Calcium 8.6 Liver Function 07/15/22 Range/Units 12:01 Total Bilirubin 0.6 (0.2-1.0) mg/dl AST 24 (13-39) U/L ALT 19 (7-52) U/L Alkaline Phosphatase 70 (34-104) U/L Albumin 3.8 (3.4-5.0) gm/dl Urine 07/15/22 Range/Units Unknown Urine Color Yellow Urine Appearance Clear (Clear) Urine pH 5.5 (4.5-7.5) Ur Specific [place] 1.013 (1.000-1.030) Urine Protein Negative (Negative) Urine Glucose (UA) Negative (Negative) Diagnostic Findings Chest X-Ray 07/15/22 12:48 XR chest 1V portable CLINICAL HISTORY: weakness TECHNIQUE: Single frontal radiograph of the chest was obtained. Comparison: Comparison is made to chest radiograph 07/14/2022 FINDINGS: No lines and tubes are seen. Cardiomegaly is noted. A calcified aortic arch is seen. Reticular interstitial opacities are seen. No evidence of pleural effusion or pneumothorax. IMPRESSION: Interstitial lung disease and cardiomegaly again seen. No definite acute abnormality is noted superimposed against this background although mild pulmonary edema cannot be entirely excluded. ACT 112: Negative or not required by law. Electronically signed by: Mook Guido M.D. 07/15/2022 1:30 PM Code Status & VTE Plan VTE Prophylaxis Plan VTE Prophylaxis will be ordered: Yes Supervising Physician Co-Signing Physician Notes I have seen and examined the patient and have discussed the case with the provider above. I agree with the assessment and plan as stated. 67-year-old morbidly obese female chronically on oxygen reports recently moving and not being able to get oxygen for 24 hours. She subsequently became weak. She also recently had a cat bite her and suffered a small area of cellulitis on her right hand as well as some fever and chills. She has already visited the ER and has been on Augmentin for 1 day. There has not been enough time to see if this is effective at this time. We will monitor closely and make sure she does not have any worsening cellulitis requiring IV antibiotics. The site of infection is concerning . She does have an elevated troponin but her clinical picture is not consistent with ACS. This may be a remote response to strain after becoming hypoxic without oxygen supply at home. Agree with plan above to consult cardiology given chronic comorbidities and risk factors for CAD. On physical exam her lungs are clear to auscultation throughout, heart exam is normal and there is no clear pitting edema. Abdominal exam reveals a protuberant abdomen with multiple skin folds that is nontender nondistended. She is mentating at baseline. She has no focal weakness but is generally weak with some difficulty moving around the bed independently. Continue with plan above. DO Sreedhar (1) DVT (deep venous thrombosis) Affected thrombotic vein of extremity: unspecified vein of extremity Chronicity: acute DVT location: lower extremity Laterality: right Qualified Code(s): I82.401 - Acute embolism and thrombosis of unspecified deep veins of right lower extremity (2) Cat bite Encounter type: initial encounter Qualified Code(s): W55.01XA - Bitten by cat, initial encounter
--- NOTE | 2022-07-15 15:38 | Electrocardiogram Report ---
Test Reason : Blood Pressure : / mmHG Vent. Rate : 105 BPM Atrial Rate : 105 BPM P-R Int : 172 ms QRS Dur : 070 ms QT Int : 342 ms P-R-T Axes : 058 036 048 degrees QTc Int : 452 ms Sinus tachycardia Abnormal ECG When compared with ECG of 10-JUN-2022 11:03, No significant change was found Confirmed by Alvin Dyer ([id number]) on 07/15/2022 3:38:18 PM Referred By: REFERRED SELF Confirmed By:Alvin Deyr
[2022-07-15] MEDS ORDERED: ONDANSETRON INJ 2 MG/ML 2 ML VIAL IV PRN (16:08)
[2022-07-15] MEDS ORDERED: POLYETHYLENE (MIRALAX) 17 GM PACK PO PRN (16:08)
[2022-07-15] MEDS ORDERED: GLUCAGON FOR INJ 1 MG VIAL SQ PRN (17:14)
[2022-07-15] MEDS ORDERED: GLUCOSE 40% GEL 15 GM TUBE PO PRN (17:14)
[2022-07-15] MEDS ORDERED: CARBOHYDRATES FOR HYPOGLYCEMIA PO PRN (17:14)
[2022-07-15] MEDS ORDERED: DEXTROSE 50% 50 ML SYRINGE IV PRN (17:14)
[2022-07-15] MEDS ORDERED: GLUCOSE 10 TAB/TUBE PO PRN (17:14)
[2022-07-15] MEDS ORDERED: MECLIZINE 12.5 MG TAB PO PRN (17:16)
[2022-07-15] MEDS ORDERED: CLOTRIMAZOLE 10 MG TROCHE BUCCAL SCH (17:30)
[2022-07-15] MEDS: traMADol HCL 50 MG TABLET PO PRN (17:40)
--- NOTE | 2022-07-15 18:04 | Emergency Department Note ---
Impression & Plan Pulmonary edema, Diabetes mellitus, type II, Weakness, Hypoxia ED Provider Note CHIEF COMPLAINT: Shortness of breath, fatigue, cat bites to the hand HISTORY OF PRESENT ILLNESS: This 67-year-old female patient presents to the emergency department via ambulance with complaints of generalized weakness, shortness of breath, fatigue. Patient was evaluated here yesterday for cat bites to the hands. Patient was prescribed antibiotics but has not yet picked them up. Patient denies any significant fevers. She does wear home oxygen during 2 to 4 L. She was noted to be 88% on 4 L here in emergency department upon arrival. Patient is currently maintaining her oxygenation on 6 L nasal cannula. She denies any recent falls, head injuries, productive cough, chest pain abdominal pain, vomiting or diarrhea. REVIEW OF SYSTEMS: A review of systems was performed with positives and pertinent negatives listed in the history of present illness. 10 systems were reviewed and are otherwise negative. ALLERGIES: see below MEDICATIONS: see below PMH: see below SOCIAL HISTORY: see below DDx: Infection, dehydration, metabolic abnormality, hypo/hyperglycemia, electrolyte disturbance, anemia, hypoxia, cardiac sources, intracerebral event, toxicologic, neurologic, as well as other pathologies. PHYSICAL EXAM: Vital signs reviewed. General: Chronically ill, morbidly obese 67-year-old female, in no significant distress. HEENT: No scleral icterus, PERRLA, neck supple. Atraumatic. Cardiovascular: Regular rate and rhythm, no extra sounds. Pulmonary: Distant breath sounds r to auscultation bilaterally, normal work of breathing. Nasal cannula oxygen Abdomen: Soft, morbidly obese, nontender, nondistended, positive bowel sounds. Musculoskeletal: Atraumatic, bilateral lower extremity peripheral edema. Neurologic: Patient awake alert and oriented x 3, speech is clear Skin: Warm, dry, multiple superficial bite/scratch velasquez to the bilateral upper extremities distally with minimal surrounding erythema. There is no evidence of lymphangitic streaking or drainage. EMERGENCY DEPARTMENT COURSE/MDM: This patient was evaluated and appeared to be in no significant distress. IV access was obtained and laboratory work was drawn. The patient was placed on desk monitor and noted to be in a sinus tachycardia. Patient was initially started on IV hydration with normal saline solution. Exam is significantly limited by patient's body habitus. Chest x-ray was performed and reveals evidence of the patient's interstitial lung disease with superimposed pulmonary edema likely. IV fluids were stopped and the patient was medicated 40 mg of IV Lasix. Patient was also given 1 g of IV magnesium for repletion. Given the patient's difficulty in caring for self, edema on chest x-ray and 2 visits in 24 hours, patient's case was discussed with the hospitalist service for further evaluation management. MONITORING: An order for cardiac monitoring was placed and the patient is noted to be in a [] at [] beats per minute. RADIOLOGY: See below EKG: Sinus tachycardia at [address] segments, no PVC, no PAC. QTc is 452. No significant change from previous dated June 10, 2022. DISPOSITION: Admission Past Med/Surg History Medical History Carotid stenosis, right CKD (chronic kidney disease), stage III Depression with anxiety Diabetes Diabetes mellitus, type II Fibromyalgia GERD (gastroesophageal reflux disease) History of DVT (deep vein thrombosis) History of pulmonary embolism s/p zoraida filter HIT (heparin-induced thrombocytopenia) HLD (hyperlipidemia) HTN (hypertension) Hypothyroidism Morbid obesity ELISSA on CPAP Presence of IVC filter RLS (restless legs syndrome) Sepsis Subclavian artery stenosis Surgical History History of cholecystectomy History of colon resection secondary to R colon perforation, resected treated with colostomy and eventual reversal in 2008, Dr. 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 Aircraft Required: No Beliefs That Will Affect Care: None marital status: Single Current Living Situation: Alone How many Children do You have: 0 Other Information That Helps Us Care for You: No Feels Safe at Home: Yes Safety Concerns: Feels Safe At This Time Assistive Devices: Walker Allergies Allergies Allergy/AdvReac Type Severity Reaction Status Date / Time morphine Allergy Severe VIOLENT Verified 12/26/21 00:54 REACTION-"ALMOST " SWELLING tetanus toxoid, adsorbed Allergy Intermediate PASSED OUT Verified 12/26/21 00:54 AND GOT SICK WHEN A CHILD bupropion [From Wellbutrin] AdvReac Intermediate Recurrent Verified 12/26/21 00:54 falls as per patient codeine AdvReac Intermediate Hallucinati Verified 12/26/21 00:54 ons empagliflozin AdvReac Intermediate YEAST Verified 12/26/21 00:54 [From Jardiance] INFECTIONS heparin AdvReac Intermediate HIT; FLUID Verified 12/26/21 00:54 IN LUNGS hydrocodone [From Vicodin] AdvReac Intermediate sleepiness Verified 12/26/21 00:54 Home Meds Home Medications Medication Instructions Recorded Confirmed levothyroxine 200 mcg tablet 200 mcg PO QAM 06/09/18 07/15/22 omeprazole 20 mg capsule,delayed 20 mg PO HS 06/09/18 07/15/22 release cyclobenzaprine 10 mg tablet 10 mg PO HS PRN Muscle Spasm 12/08/18 07/15/22 duloxetine 60 mg capsule,delayed 60 mg PO QAM 12/23/18 07/15/22 release gabapentin 300 mg capsule 300 mg PO BID 05/09/19 07/15/22 duloxetine 30 mg capsule,delayed 30 mg PO DAILY 01/25/20 07/15/22 release trazodone 50 mg tablet 50 mg PO HS 01/25/20 07/15/22 insulin degludec 100 unit/mL (3 60 unit subcut HS 11/24/20 07/15/22 mL) subcutaneous pen (Tresiba FlexTouch U-100 insulin) dicyclomine 20 mg tablet 20 mg PO QID PRN abdominal pain 03/27/21 07/15/22 docusate sodium 100 mg capsule 100 mg PO BID PRN Constipation 03/27/21 07/15/22 (Colace) insulin aspart U-100 100 unit/mL 40 unit subcut WM 03/27/21 07/15/22 (3 mL) subcutaneous pen (Novolog Flexpen U-100 Insulin aspart) levothyroxine 50 mcg tablet 50 mcg PO QAM 03/27/21 07/15/22 meclizine 12.5 mg tablet 12.5 mg PO TID PRN Dizziness 03/27/21 07/15/22 nortriptyline 50 mg capsule 50 mg PO HS 03/27/21 07/15/22 (Pamelor) ropinirole 2 mg tablet 2 mg PO HS 09/20/21 07/15/22 dulaglutide 4.5 mg/0.5 mL 4.5 mg subcut WK 10/15/21 07/15/22 subcutaneous pen injector (Trulicity) apixaban 5 mg (74 tabs) tablets in 5 mg PO BID 12/26/21 07/15/22 a dose pack (Eliquis) potassium chloride 20 mEq 20 meq PO BID17 07/14/22 07/15/22 tablet,extended release(part/cryst) albuterol sulfate 90 mcg/actuation 2 inh inhalation Q4H PRN Shortness 07/15/22 07/15/22 aerosol inhaler Of Breath Or Wheezing metformin 500 mg tablet,extended 500 mg PO DAILY 07/15/22 07/15/22 release 24 hr oxycodone-acetaminophen 5 mg-325 1 tab PO Q12H PRN Pain 07/29/22 07/29/22 mg tablet Previous Rx's Medication Instructions Recorded clonazepam 0.5 mg tablet 0.5 mg PO BID PRN anxiety #0 tabs 03/28/21 magnesium oxide 400 mg (241.3 mg 400 mg PO BID@1200,1800 #60 tabs 06/15/22 magnesium) tablet furosemide 40 mg tablet 60 mg PO BID #120 tabs 07/22/22 Results & Data (ED) Vital Signs Vital Signs - 24 hr 07/15/22 10:34 07/15/22 11:30 07/15/22 11:31 Temperature 36.3 C L Temperature Source Temporal Artery Scan Pulse Rate 83 108 H Pulse Rate [Apical] Pulse Rate from SpO2 Sensor 107 H Respiratory Rate 18 28 H Blood Pressure 102/69 114/75 Blood Pressure [Right Arm] Blood Pressure Mean 80 88 Blood Pressure Mean [Right Arm] Pulse Oximetry 100 91 Oxygen Delivery Method Nasal Cannula Oxygen Flow Rate 3 Sepsis Recent Fever Within 48 Hours No Sepsis New/Unexplained Change in Mental Status No Sepsis Action Taken by Nursing No Action Required 07/15/22 12:00 07/15/22 12:08 07/15/22 12:08 Temperature Temperature Source Pulse Rate 104 H 104 H Pulse Rate [Apical] Pulse Rate from SpO2 Sensor 103 H 104 H Respiratory Rate 28 H 31 H Blood Pressure 176/94 H Blood Pressure [Right Arm] Blood Pressure Mean 121 Blood Pressure Mean [Right Arm] Pulse Oximetry 92 95 Oxygen Delivery Method Oxygen Flow Rate Sepsis Recent Fever Within 48 Hours Sepsis New/Unexplained Change in Mental Status Sepsis Action Taken by Nursing 07/15/22 12:30 07/15/22 12:30 07/15/22 12:31 Temperature Temperature Source Pulse Rate 104 H 105 H Pulse Rate [Apical] Pulse Rate from SpO2 Sensor 105 H 105 H Respiratory Rate 25 H 24 Blood Pressure 101/86 Blood Pressure [Right Arm] Blood Pressure Mean 91 Blood Pressure Mean [Right Arm] Pulse Oximetry 93 95 Oxygen Delivery Method Oxygen Flow Rate Sepsis Recent Fever Within 48 Hours Sepsis New/Unexplained Change in Mental Status Sepsis Action Taken by Nursing 07/15/22 12:31 07/15/22 13:00 07/15/22 13:10 Temperature Temperature Source Pulse Rate 103 H 102 H Pulse Rate [Apical] Pulse Rate from SpO2 Sensor 104 H 103 H Respiratory Rate 24 23 Blood Pressure 116/84 Blood Pressure [Right Arm] Blood Pressure Mean 94 Blood Pressure Mean [Right Arm] Pulse Oximetry 95 99 Oxygen Delivery Method Nasal Cannula Oxygen Flow Rate 6 Sepsis Recent Fever Within 48 Hours Sepsis New/Unexplained Change in Mental Status Sepsis Action Taken by Nursing 07/15/22 13:10 07/15/22 14:30 07/15/22 14:30 Temperature Temperature Source Pulse Rate Pulse Rate [Apical] 102 H Pulse Rate from SpO2 Sensor Respiratory Rate 20 Blood Pressure 135/80 Blood Pressure [Right Arm] 103/62 Blood Pressure Mean 98 Blood Pressure Mean [Right Arm] 75 Pulse Oximetry 96 96 Oxygen Delivery Method Nasal Cannula Nasal Cannula Oxygen Flow Rate 1 1 Sepsis Recent Fever Within 48 Hours Sepsis New/Unexplained Change in Mental Status Sepsis Action Taken by Nursing 07/15/22 13:30 07/15/22 13:30 07/15/22 14:02 Temperature Temperature Source Pulse Rate 102 H Pulse Rate [Apical] Pulse Rate from SpO2 Sensor 101 H Respiratory Rate 24 Blood Pressure 90/73 L 98/65 L Blood Pressure [Right Arm] Blood Pressure Mean 78 76 Blood Pressure Mean [Right Arm] Pulse Oximetry 98 Oxygen Delivery Method Oxygen Flow Rate Sepsis Recent Fever Within 48 Hours Sepsis New/Unexplained Change in Mental Status Sepsis Action Taken by Nursing 07/15/22 14:02 07/15/22 14:30 07/15/22 14:30 Temperature Temperature Source Pulse Rate 97 H 100 H Pulse Rate [Apical] Pulse Rate from SpO2 Sensor 101 H Respiratory Rate 33 H 30 H Blood Pressure 103/62 Blood Pressure [Right Arm] Blood Pressure Mean 75 Blood Pressure Mean [Right Arm] Pulse Oximetry 100 Oxygen Delivery Method Oxygen Flow Rate Sepsis Recent Fever Within 48 Hours Sepsis New/Unexplained Change in Mental Status Sepsis Action Taken by Jail Medications Current Medication List: was personally reviewed by me Laboratory Data Attestation: I reviewed the patient's lab results. Result diagrams: 07/17/22 06:42 07/22/22 06:47 Lab Results 07/15/22 07/15/22 07/15/22 Range/Units 12:01 12:01 12:01 WBC 9.83 (4.8-10.8) K/ul RBC 4.37 (3.93-5.22) M/uL Hgb 13.3 (12.0-16.0) g/dl Hct 40.4 (34.1-44.9) % MCV 92.4 (80.0-100.0) fL MCH 30.4 (25.0-34.0) pg MCHC 32.9 (32.0-36.0) g/dL RDW Std Deviation 51.6 H (36.4-46.3) fL RDW Coeff of Adolfo 15.2 H (11.5-14.5) % Plt Count 296 (130-400) K/uL MPV 10.6 (9.4-12.3) fL Immature Gran % (Auto) 0.9 % Neut % (Auto) 72.0 % Lymph % (Auto) 16.7 % [place] % (Auto) 8.3 % Eos % (Auto) 1.2 % Baso % (Auto) 0.9 % Neut # (Auto) 7.07 H (1.4-6.5) K/uL Lymph # (Auto) 1.64 (1.2-3.4) K/uL [place] # (Auto) 0.82 (0.24-0.82) K/uL Eos # (Auto) 0.12 (0-0.50) K/uL Baso # (Auto) 0.09 (0-0.2) K/uL Immature Gran # (Auto) 0.09 H (0.00-0.02) K/uL Sodium 136 (136-145) mmol/L Potassium 3.8 (3.5-5.1) mmol/L Chloride 97 L (98-107) mmol/L Carbon Dioxide 29 (21-32) mmol/L Anion Gap 10 (3-11) BUN 28 H (6-23) mg/dl Creatinine 1.91 H (0.6-1.2) mg/dl Est Cr Clr Drug Dosing 42.3 ml/min Est GFR ( Amer) 30.9 ml/min Est GFR (Non-Af Amer) 26.6 ml/min BUN/Creatinine Ratio 14.7 (10-20) Glucose 253 H (70-99(Fasting)) mg/dl Calcium 8.6 (8.5-10.1) mg/dl Magnesium 1.5 L (1.7-2.4) mg/dl Total Bilirubin 0.6 (0.2-1.0) mg/dl AST 24 (13-39) U/L ALT 19 (7-52) U/L Alkaline Phosphatase 70 (34-104) U/L Troponin I High Sens 162.5 H* D (0-14) pg/ml Total Protein 7.2 (6.0-8.3) gm/dl Albumin 3.8 (3.4-5.0) gm/dl Globulin 3.4 (2.5-4.0) gm/dl Albumin/Globulin Ratio 1.1 (0.9-2) TSH 0.367 (0.300-4.500) uIu/ml SARS-CoV-2 (PCR) (Negative) Influenza Type A (PCR) (Neg) Influenza Type B (PCR) (Neg) RSV (RT-PCR) (Neg) 07/15/22 Range/Units 13:05 WBC (4.8-10.8) K/ul RBC (3.93-5.22) M/uL Hgb (12.0-16.0) g/dl Hct (34.1-44.9) % MCV (80.0-100.0) fL MCH (25.0-34.0) pg MCHC (32.0-36.0) g/dL RDW Std Deviation (36.4-46.3) fL RDW Coeff of Adolfo (11.5-14.5) % Plt Count (130-400) K/uL MPV (9.4-12.3) fL Immature Gran % (Auto) % Neut % (Auto) % Lymph % (Auto) % [place] % (Auto) % Eos % (Auto) % Baso % (Auto) % Neut # (Auto) (1.4-6.5) K/uL Lymph # (Auto) (1.2-3.4) K/uL [place] # (Auto) (0.24-0.82) K/uL Eos # (Auto) (0-0.50) K/uL Baso # (Auto) (0-0.2) K/uL Immature Gran # (Auto) (0.00-0.02) K/uL Sodium (136-145) mmol/L Potassium (3.5-5.1) mmol/L Chloride (98-107) mmol/L Carbon Dioxide (21-32) mmol/L Anion Gap (3-11) BUN (6-23) mg/dl Creatinine (0.6-1.2) mg/dl Est Cr Clr Drug Dosing ml/min Est GFR ( Amer) ml/min Est GFR (Non-Af Amer) ml/min BUN/Creatinine Ratio (10-20) Glucose (70-99(Fasting)) mg/dl Calcium (8.5-10.1) mg/dl Magnesium (1.7-2.4) mg/dl Total Bilirubin (0.2-1.0) mg/dl AST (13-39) U/L ALT (7-52) U/L Alkaline Phosphatase (34-104) U/L Troponin I High Sens (0-14) pg/ml Total Protein (6.0-8.3) gm/dl Albumin (3.4-5.0) gm/dl Globulin (2.5-4.0) gm/dl Albumin/Globulin Ratio (0.9-2) TSH (0.300-4.500) uIu/ml SARS-CoV-2 (PCR) NEGATIVE (Negative) Influenza Type A (PCR) Negative (Neg) Influenza Type B (PCR) Negative (Neg) RSV (RT-PCR) Negative (Neg) Administered Medications Discontinued Medications Acetaminophen (Acetaminophen 325 Mg Tab) 650 mg PO Q4H PRN PRN Reason: Pain or Fever Stop: 08/14/22 16:07 Last Admin: 10/27/22 03:14 Dose: 650 mg Documented By: BCHaylie Admin: 07/21/22 15:59 Dose: 650 mg Documented By: Admin: 07/21/22 01:25 Dose: 650 mg Documented By: Admin: 07/20/22 06:47 Dose: 650 mg Documented By: Admin: 07/19/22 12:58 Dose: 650 mg Documented By: Admin: 07/19/22 02:00 Dose: 650 mg Documented By: Admin: 07/18/22 12:26 Dose: 650 mg Documented By: Admin: 07/18/22 08:37 Dose: 650 mg Documented By: Admin: 07/17/22 20:27 Dose: 650 mg Documented By: Admin: 07/17/22 13:15 Dose: 650 mg Documented By: Admin: 07/17/22 09:13 Dose: 650 mg Documented By: Admin: 07/16/22 03:38 Dose: 650 mg Documented By: HUMZA Amoxicillin/Clavulanate Potassium (Amoxicillin/Clavulanate 875 Mg Tab) 1 tab PO BID ROBERT Stop: 07/22/22 20:59 Last Admin: 07/22/22 08:26 Dose: 1 tab Documented By: Admin: 07/21/22 20:28 Dose: 1 tab Documented By: Admin: 07/21/22 08:03 Dose: 1 tab Documented By: Admin: 07/20/22 20:54 Dose: 1 tab Documented By: Admin: 07/20/22 07:37 Dose: 1 tab Documented By: Admin: 07/19/22 20:25 Dose: 1 tab Documented By: Admin: 07/19/22 09:15 Dose: 1 tab Documented By: Admin: 07/18/22 20:32 Dose: 1 tab Documented By: Admin: 07/18/22 08:29 Dose: 1 tab Documented By: Admin: 07/17/22 20:21 Dose: 1 tab Documented By: Admin: 07/17/22 09:03 Dose: 1 tab Documented By: Admin: 07/16/22 20:39 Dose: 1 tab Documented By: Admin: 07/16/22 08:44 Dose: 1 tab Documented By: Admin: 07/15/22 21:04 Dose: 1 tab Documented By: HUMZA Apixaban (Apixaban 5 Mg Tablet) 5 mg PO BID ROBERT Stop: 08/14/22 20:59 Last Admin: 07/22/22 08:27 Dose: 5 mg Documented By: Admin: 07/21/22 20:27 Dose: 5 mg Documented By: Admin: 07/21/22 08:03 Dose: 5 mg Documented By: Admin: 07/20/22 20:52 Dose: 5 mg Documented By: Admin: 07/20/22 07:38 Dose: 5 mg Documented By: Admin: 07/19/22 20:23 Dose: 5 mg Documented By: Admin: 07/19/22 09:15 Dose: 5 mg Documented By: Admin: 07/18/22 20:33 Dose: 5 mg Documented By: Admin: 07/18/22 08:29 Dose: 5 mg Documented By: Admin: 07/17/22 20:21 Dose: 5 mg Documented By: Admin: 07/17/22 09:03 Dose: 5 mg Documented By: Admin: 07/16/22 20:40 Dose: 5 mg Documented By: Admin: 07/16/22 08:44 Dose: 5 mg Documented By: Admin: 07/15/22 21:04 Dose: 5 mg Documented By: HUMZA Aspirin (Aspirin Chew 324 Mg) 324 mg PO NOW STA Stop: 07/15/22 13:46 Last Admin: 07/15/22 14:02 Dose: 324 mg Documented By: ARLEY Clonazepam (Clonazepam 0.5 Mg Tab) 0.5 mg PO BID PRN PRN Reason: anxiety Stop: 08/14/22 17:15 Last Admin: 07/20/22 13:30 Dose: 0.5 mg Documented By: Admin: 07/19/22 09:25 Dose: 0.5 mg Documented By: Admin: 07/18/22 08:37 Dose: 0.5 mg Documented By: Admin: 07/17/22 09:14 Dose: 0.5 mg Documented By: Admin: 07/16/22 17:45 Dose: 0.5 mg Documented By: CHRYSTAL Clotrimazole (Clotrimazole 10 Mg Valarie) 10 mg BUCCAL [id number] ROBERT Stop: 07/28/22 18:59 Last Admin: 07/22/22 12:10 Dose: Not Given Documented By: Admin: 07/22/22 06:18 Dose: 10 mg Documented By: Admin: 07/22/22 00:00 Dose: 10 mg Documented By: Admin: 07/21/22 20:28 Dose: 10 mg Documented By: Admin: 07/21/22 14:52 Dose: 10 mg Documented By: Admin: 07/21/22 12:00 Dose: 10 mg Documented By: Admin: 07/21/22 08:03 Dose: 10 mg Documented By: Admin: 07/20/22 20:55 Dose: Not Given Documented By: Admin: 07/20/22 20:54 Dose: 10 mg Documented By: Admin: 07/20/22 14:51 Dose: 10 mg Documented By: Admin: 07/20/22 11:23 Dose: 10 mg Documented By: Admin: 07/20/22 06:47 Dose: 10 mg Documented By: Admin: 07/19/22 20:27 Dose: 10 mg Documented By: Admin: 07/19/22 18:11 Dose: Not Given Documented By: Admin: 07/19/22 18:11 Dose: Not Given Documented By: Admin: 07/19/22 12:53 Dose: 10 mg Documented By: Admin: 07/19/22 06:10 Dose: 10 mg Documented By: Admin: 07/18/22 22:09 Dose: 10 mg Documented By: Admin: 07/18/22 19:22 Dose: 10 mg Documented By: KATHY Cyclobenzaprine HCl (Cyclobenzaprine Hcl 10 Mg Tab) 10 mg PO HS PRN PRN Reason: Muscle Spasm Stop: 08/14/22 17:15 Last Admin: 07/21/22 21:34 Dose: 10 mg Documented By: Admin: 07/18/22 21:39 Dose: 10 mg Documented By: Admin: 07/15/22 22:06 Dose: 10 mg Documented By: HUMZA Dicyclomine HCl (Dicyclomine Hcl 20 Mg Tab) 20 mg PO QID PRN PRN Reason: abdominal pain Stop: 08/14/22 17:15 Last Admin: 07/19/22 09:15 Dose: 20 mg Documented By: Admin: 07/18/22 19:23 Dose: 20 mg Documented By: KATHY Docusate Sodium (Docusate Sodium 100 Mg Cap) 100 mg PO BID PRN PRN Reason: Constipation Stop: 08/14/22 17:15 Last Admin: 07/19/22 18:18 Dose: 100 mg Documented By: Admin: 07/18/22 17:14 Dose: 100 mg Documented By: HALEIGH Duloxetine HCl (Duloxetine Hcl 30 Mg Cap) 30 mg PO DAILY ROBERT Stop: 08/15/22 08:59 Last Admin: 07/22/22 08:25 Dose: 30 mg Documented By: Admin: 07/21/22 08:02 Dose: 30 mg Documented By: Admin: 07/20/22 07:40 Dose: 30 mg Documented By: MTHaylie Admin: 07/19/22 09:15 Dose: 30 mg Documented By: Admin: 07/18/22 08:29 Dose: 30 mg Documented By: Admin: 07/17/22 09:03 Dose: 30 mg Documented By: Admin: 07/16/22 08:45 Dose: 30 mg Documented By: CHRYSTAL Duloxetine HCl (Duloxetine Hcl 60 Mg Cap) 60 mg PO QAM ROBERT Stop: 08/15/22 08:59 Last Admin: 07/22/22 08:25 Dose: 60 mg Documented By: Admin: 07/21/22 08:02 Dose: 60 mg Documented By: Admin: 07/20/22 07:38 Dose: 60 mg Documented By: Admin: 07/19/22 09:15 Dose: 60 mg Documented By: Admin: 07/18/22 08:29 Dose: 60 mg Documented By: Admin: 07/17/22 09:03 Dose: 60 mg Documented By: Admin: 07/16/22 08:45 Dose: 60 mg Documented By: CHRYSTAL Furosemide (Furosemide 40 Mg/4 Ml Vial) 40 mg IV ONE ONE Stop: 07/15/22 14:09 Last Admin: 07/15/22 14:31 Dose: 40 mg Documented By: NATA Furosemide (Furosemide 40 Mg Tab) 40 mg PO BID17 ROBERT Stop: 08/15/22 08:59 Last Admin: 07/17/22 09:02 Dose: 40 mg Documented By: Admin: 07/16/22 17:40 Dose: 40 mg Documented By: Admin: 07/16/22 08:45 Dose: 40 mg Documented By: CHRYSTAL Furosemide (Furosemide 40 Mg/4 Ml Vial) 40 mg IV BID17 ROBERT Stop: 08/16/22 16:59 Last Admin: 07/22/22 08:27 Dose: 40 mg Documented By: Admin: 07/21/22 17:20 Dose: 40 mg Documented By: Admin: 07/21/22 08:03 Dose: 40 mg Documented By: Admin: 07/20/22 17:09 Dose: 40 mg Documented By: Admin: 07/20/22 07:38 Dose: 40 mg Documented By: Admin: 07/19/22 18:12 Dose: 40 mg Documented By: Admin: 07/19/22 09:14 Dose: 40 mg Documented By: Admin: 07/18/22 17:15 Dose: 40 mg Documented By: Admin: 07/18/22 08:30 Dose: 40 mg Documented By: Admin: 07/17/22 17:19 Dose: 40 mg Documented By: HALEIGH Gabapentin (Gabapentin 300 Mg Cap) 300 mg PO TID ROBERT Stop: 08/14/22 20:59 Last Admin: 07/22/22 08:26 Dose: 300 mg Documented By: Admin: 07/21/22 20:28 Dose: 300 mg Documented By: Admin: 07/21/22 14:52 Dose: 300 mg Documented By: Admin: 07/21/22 08:03 Dose: 300 mg Documented By: Admin: 07/20/22 20:55 Dose: 300 mg Documented By: Admin: 07/20/22 13:30 Dose: 300 mg Documented By: Admin: 07/20/22 07:38 Dose: 300 mg Documented By: Admin: 07/19/22 20:25 Dose: 300 mg Documented By: Admin: 07/19/22 12:53 Dose: 300 mg Documented By: Admin: 07/19/22 09:15 Dose: 300 mg Documented By: Admin: 07/18/22 20:33 Dose: 300 mg Documented By: Admin: 07/18/22 12:18 Dose: 300 mg Documented By: Admin: 07/18/22 08:29 Dose: 300 mg Documented By: Admin: 07/17/22 20:22 Dose: 300 mg Documented By: Admin: 07/17/22 13:09 Dose: 300 mg Documented By: Admin: 07/17/22 09:02 Dose: 300 mg Documented By: Admin: 07/16/22 20:40 Dose: 300 mg Documented By: Admin: 07/16/22 12:44 Dose: 300 mg Documented By: Admin: 07/16/22 08:45 Dose: 300 mg Documented By: Admin: 07/15/22 21:02 Dose: 300 mg Documented By: HUMZA Sodium Chloride (Nss 1000ml) 1,000 mls @ 999 mls/hr IV .Q1H1M ROBERT Stop: 07/15/22 14:00 Last Infusion: 07/15/22 14:21 Dose: 0 mls/hr Documented By: Admin: 07/15/22 13:10 Dose: 999 mls/hr Documented By: ARLEY Magnesium Sulfate/Dextrose (Magnesium Sulfate / D5w) 1 gm in 100 mls @ 100 mls/hr IV Q1H ROBERT Stop: 07/15/22 16:27 Last Infusion: 07/15/22 17:08 Dose: 0 mls/hr Documented By: Admin: 07/15/22 16:10 Dose: 100 mls/hr Documented By: Infusion: 07/15/22 15:44 Dose: 0 mls/hr Documented By: Admin: 07/15/22 14:33 Dose: 100 mls/hr Documented By: NATA Magnesium Sulfate/Dextrose (Magnesium Sulfate / D5w) 1 gm in 100 mls @ 50 mls/hr IV Q2H ROBERT Stop: 07/18/22 11:59 Last Infusion: 07/18/22 11:37 Dose: 0 mls/hr Documented By: Admin: 07/18/22 08:58 Dose: 50 mls/hr Documented By: Infusion: 07/18/22 08:58 Dose: 50 mls/hr Documented By: Admin: 07/18/22 08:36 Dose: 50 mls/hr Documented By: HALEIGH Magnesium Sulfate/Dextrose (Magnesium Sulfate / D5w) 1 gm in 100 mls @ 50 ml s/hr IV ONE ONE Stop: 07/20/22 09:53 Last Infusion: 07/20/22 11:41 Dose: 0 mls/hr Documented By: Admin: 07/20/22 09:36 Dose: 50 mls/hr Documented By: KEYUR Magnesium Sulfate/Dextrose (Magnesium Sulfate / D5w) 1 gm in 100 mls @ 50 mls/hr IV ONE ONE Stop: 07/22/22 10:25 Last Infusion: 07/22/22 10:54 Dose: 0 mls/hr Documented By: Admin: 07/22/22 08:52 Dose: 50 mls/hr Documented By: JANET Insulin Aspart (Insulin Aspart Per Unit) 0 units SC ACHS ROBERT Stop: 08/14/22 20:59 Last Admin: 07/22/22 12:10 Dose: 15 units Documented By: JANET Co-signed By: ZURDO Admin: 07/22/22 08:25 Dose: 8 units Documented By: JANET Co-signed By: Admin: 07/21/22 20:18 Dose: Not Given Documented By: Admin: 07/21/22 17:17 Dose: 9 units Documented By: KEYUR Co-signed By: Admin: 07/21/22 12:08 Dose: 11 units Documented By: KEYUR Co-signed By: Admin: 07/21/22 09:12 Dose: 10 units Documented By: KEYUR Co-signed By: [id number] Admin: 07/20/22 20:44 Dose: Not Given Documented By: Admin: 07/20/22 17:09 Dose: 11 units Documented By: KEYUR Co-signed By: [email or web address] Admin: 07/20/22 12:30 Dose: 7 units Documented By: KEYUR Co-signed By: JANET Admin: 07/20/22 09:33 Dose: 11 units Documented By: MAP Co-signed By: ÁNGEL Admin: 07/19/22 20:22 Dose: 1 units Documented By: LAMINE Co-signed By: ALONZO Admin: 07/19/22 18:18 Dose: 15 units Documented By: HALEIGH Co-signed By: [email or web address] Admin: 07/19/22 12:58 Dose: 15 units Documented By: CB Co-signed By: SML Admin: 07/19/22 09:25 Dose: 12 units Documented By: HALEIGH Co-signed By: SML Admin: 07/18/22 20:34 Dose: Not Given Documented By: Admin: 07/18/22 17:19 Dose: 9 units Documented By: CB Co-signed By: [facility] Admin: 07/18/22 12:26 Dose: 11 units Documented By: CB Co-signed By: SML Admin: 07/18/22 08:36 Dose: 10 units Documented By: CB Co-signed By: SML Admin: 07/17/22 20:20 Dose: 4 units Documented By: BS Co-signed By: USMAN Admin: 07/17/22 17:23 Dose: 11 units Documented By: CB Co-signed By: [facility] Admin: 07/17/22 13:15 Dose: 16 units Documented By: CB Co-signed By: SMZuleyma Admin: 07/17/22 09:11 Dose: 6 units Documented By: CB Co-signed By: VASHTI(2) Admin: 07/16/22 20:42 Dose: 6 units Documented By: SERA Co-signed By: ARLEY(2) Admin: 07/16/22 17:38 Dose: 9 units Documented By: CHRYSTAL Co-signed By: [facility] Admin: 07/16/22 12:43 Dose: 10 units Documented By: CHRYSTAL Co-signed By: DAR Admin: 07/16/22 08:36 Dose: 6 units Documented By: CHRYSTAL Co-signed By: [facility] Admin: 07/15/22 21:19 Dose: 3 units Documented By: HUMZA Co-signed By: SANG(2) Insulin Aspart (Insulin Aspart Per Unit) 0 units SC 181 ONE Stop: 07/15/22 18:16 Last Admin: 07/15/22 18:12 Dose: 14 units Documented By: CHRYSTAL Co-signed By: RICHARDSON Insulin Glargine (Lantus Per Unit Charge) 20 units SQ BID ROBERT Stop: 08/14/22 20:59 Last Admin: 07/22/22 08:27 Dose: 20 units Documented By: JANET Co-signed By: ZURDO Admin: 07/21/22 20:21 Dose: 20 units Documented By: ALONZO Co-signed By: ANNA Admin: 07/21/22 09:12 Dose: 20 units Documented By: KEYUR Co-signed By: [id number] Admin: 07/20/22 20:51 Dose: 20 units Documented By: LAMINE Co-signed By: ALONZO Admin: 07/20/22 09:32 Dose: 20 units Documented By: ROXANNA Co-signed By: ÁNGEL Admin: 07/19/22 20:22 Dose: 20 units Documented By: LAMINE Co-signed By: ALONZO Admin: 07/19/22 09:26 Dose: 20 units Documented By: HALEIGH Co-signed By: VASHTI Admin: 07/18/22 20:38 Dose: 20 units Documented By: KATHY Co-signed By: HATTIE Admin: 07/18/22 08:36 Dose: 20 units Documented By: HALEIGH Co-signed By: VASHTI Admin: 07/17/22 20:20 Dose: 20 units Documented By: KATHY Co-signed By: USMAN Admin: 07/17/22 09:11 Dose: 20 units Documented By: HALEIGH Co-signed By: VASHTI(2) Admin: 07/16/22 20:42 Dose: 20 units Documented By: SERA Co-signed By: ARLEY(2) Admin: 07/16/22 08:37 Dose: 20 units Documented By: CHRYSTAL Co-signed By: DEMRA Admin: 07/15/22 21:18 Dose: 20 units Documented By: HUMZA Co-signed By: ARLEY(2) Levothyroxine Sodium (Levothyroxine Sodium 200 Mcg Tablet) 200 mcg PO QAM ROBERT Stop: 08/15/22 08:59 Last Admin: 07/22/22 08:26 Dose: 200 mcg Documented By: Admin: 07/21/22 08:03 Dose: 200 mcg Documented By: MTHaylie Admin: 07/20/22 07:39 Dose: 200 mcg Documented By: Admin: 07/19/22 09:16 Dose: 200 mcg Documented By: Admin: 07/18/22 08:29 Dose: 200 mcg Documented By: Admin: 07/17/22 09:02 Dose: 200 mcg Documented By: Admin: 07/16/22 08:48 Dose: 200 mcg Documented By: CHRYSTAL Levothyroxine Sodium (Levothyroxine Sodium 50 Mcg Tablet) 50 mcg PO QAM ROBERT Stop: 08/15/22 08:59 Last Admin: 07/22/22 08:25 Dose: 50 mcg Documented By: Admin: 07/21/22 08:02 Dose: 50 mcg Documented By: Admin: 07/20/22 07:37 Dose: 50 mcg Documented By: Admin: 07/19/22 09:15 Dose: 50 mcg Documented By: Admin: 07/18/22 08:29 Dose: 50 mcg Documented By: Admin: 07/17/22 09:03 Dose: 50 mcg Documented By: Admin: 07/16/22 08:48 Dose: 50 mcg Documented By: CHRYSTAL Lidocaine (Lidocaine 5% 1 Patch) 1 patch TD QAM ROBERT Stop: 08/15/22 15:14 Last Admin: 07/22/22 08:27 Dose: 1 patch Documented By: Admin: 07/21/22 08:03 Dose: 1 patch Documented By: Admin: 07/20/22 07:39 Dose: 1 patch Documented By: Admin: 07/19/22 09:16 Dose: Not Given Documented By: Admin: 07/18/22 09:00 Dose: Not Given Documented By: Admin: 07/17/22 09:03 Dose: 1 patch Documented By: Admin: 07/16/22 16:09 Dose: 1 patch Documented By: CHRYSTAL Magnesium Oxide (Magnesium Oxide 400 Mg Tab) 400 mg PO BID@1200,1800 [facility] Stop: 08/14/22 17:59 Last Admin: 07/22/22 12:11 Dose: 400 mg Documented By: Admin: 07/21/22 17:17 Dose: 400 mg Documented By: Admin: 07/21/22 12:00 Dose: 400 mg Documented By: Admin: 07/20/22 17:08 Dose: 400 mg Documented By: Admin: 07/20/22 11:23 Dose: 400 mg Documented By: Admin: 07/19/22 18:12 Dose: 400 mg Documented By: Admin: 07/19/22 12:53 Dose: 400 mg Documented By: Admin: 07/18/22 17:15 Dose: 400 mg Documented By: Admin: 07/18/22 12:18 Dose: 400 mg Documented By: Admin: 07/17/22 17:20 Dose: 400 mg Documented By: Admin: 07/17/22 13:09 Dose: 400 mg Documented By: Admin: 07/16/22 17:40 Dose: 400 mg Documented By: Admin: 07/16/22 12:44 Dose: 400 mg Documented By: Admin: 07/15/22 18:16 Dose: 400 mg Documented By: CHRYSTAL Miscellaneous (Remove Lidoderm Patch) 1 each N/A DAILY@2100 ROBERT Stop: 08/15/22 20:59 Last Admin: 07/21/22 20:28 Dose: 1 each Documented By: Admin: 07/20/22 20:53 Dose: 1 each Documented By: Admin: 07/19/22 20:27 Dose: 1 each Documented By: Admin: 07/18/22 20:35 Dose: 1 each Documented By: Admin: 07/17/22 20:24 Dose: 1 each Documented By: Admin: 07/16/22 20:41 Dose: 1 each Documented By: SERA Nortriptyline HCl (Nortriptyline Hcl 25 Mg Cap) 50 mg PO HS ROBERT Stop: 08/14/22 20:59 Last Admin: 07/21/22 20:28 Dose: 50 mg Documented By: Admin: 07/20/22 20:53 Dose: 50 mg Documented By: Admin: 07/19/22 20:24 Dose: 50 mg Documented By: Admin: 07/18/22 20:34 Dose: 50 mg Documented By: Admin: 07/17/22 20:23 Dose: 50 mg Documented By: Admin: 07/16/22 20:40 Dose: 50 mg Documented By: Admin: 07/15/22 21:03 Dose: 50 mg Documented By: HUMZA Ondansetron HCl (Ondansetron Inj 2 Mg/Ml 2 Ml Vial) 4 mg IV Q6H PRN PRN Reason: Nausea Stop: 08/14/22 16:07 Last Admin: 07/18/22 03:24 Dose: 4 mg Documented By: KATHY Oxycodone HCl (Oxycodone Hcl Ir 5 Mg Tab (Immediate Release)) 5 mg PO NOW STA Stop: 07/16/22 15:12 Last Admin: 07/16/22 15:17 Dose: 5 mg Documented By: CHRYSTAL Pantoprazole Sodium (Pantoprazole 40 Mg Tab) 40 mg PO HS ROBERT Stop: 08/14/22 20:59 Last Admin: 07/21/22 20:28 Dose: 40 mg Documented By: Admin: 07/20/22 20:55 Dose: 40 mg Documented By: Admin: 07/19/22 20:23 Dose: 40 mg Documented By: Admin: 07/18/22 20:35 Dose: 40 mg Documented By: Admin: 07/17/22 20:24 Dose: 40 mg Documented By: Admin: 07/16/22 20:39 Dose: 40 mg Documented By: Admin: 07/15/22 21:03 Dose: 40 mg Documented By: HUMZA Polyethylene Glycol (Polyethylene (Miralax) 17 Gm Pack) 17 gm PO DAILY PRN PRN Reason: Constipation Stop: 08/14/22 16:07 Last Admin: 07/20/22 17:18 Dose: 17 gm Documented By: KEYUR Potassium Chloride (Potassium Chloride Crtab 20 Meq Tabcr) 20 meq PO BID17 ROBERT Stop: 08/15/22 08:59 Last Admin: 07/22/22 08:26 Dose: 20 meq Documented By: Admin: 07/21/22 17:17 Dose: 20 meq Documented By: Admin: 07/21/22 08:03 Dose: 20 meq Documented By: Admin: 07/20/22 17:08 Dose: 20 meq Documented By: Admin: 07/20/22 07:37 Dose: 20 meq Documented By: Admin: 07/19/22 18:12 Dose: 20 meq Documented By: Admin: 07/19/22 09:16 Dose: 20 meq Documented By: Admin: 07/18/22 17:15 Dose: 20 meq Documented By: Admin: 07/18/22 08:29 Dose: 20 meq Documented By: Admin: 07/17/22 17:20 Dose: 20 meq Documented By: Admin: 07/17/22 09:02 Dose: 20 meq Documented By: Admin: 07/16/22 17:40 Dose: 20 meq Documented By: Admin: 07/16/22 08:48 Dose: 20 meq Documented By: CHRYSTAL Potassium Chloride (Potassium Chloride Crtab 20 Meq Tabcr) 20 meq PO NOW ONE Stop: 07/16/22 08:37 Last Admin: 07/16/22 08:53 Dose: 20 meq Documented By: CHRYSTAL Potassium Chloride (Potassium Chloride Crtab 20 Meq Tabcr) 20 meq PO NOW ONE Stop: 07/20/22 15:34 Last Admin: 07/20/22 16:08 Dose: 20 meq Documented By: KEYUR Ropinirole HCl (Ropinirole Hcl 2 Mg Tablet) 2 mg PO HS ROBERT Stop: 08/14/22 20:59 Last Admin: 07/21/22 20:29 Dose: 2 mg Documented By: Admin: 07/20/22 20:52 Dose: 2 mg Documented By: Admin: 07/19/22 20:23 Dose: 2 mg Documented By: Admin: 07/18/22 20:35 Dose: 2 mg Documented By: Admin: 07/17/22 20:25 Dose: 2 mg Documented By: Admin: 07/16/22 20:39 Dose: 2 mg Documented By: Admin: 07/15/22 21:02 Dose: 2 mg Documented By: HUMZA Tramadol HCl (Tramadol Hcl 50 Mg Tablet) 50 mg PO Q8H PRN PRN Reason: Pain Stop: 08/14/22 17:15 Last Admin: 07/21/22 21:34 Dose: 50 mg Documented By: Admin: 07/20/22 21:33 Dose: 50 mg Documented By: Admin: 07/20/22 13:30 Dose: 50 mg Documented By: Admin: 07/19/22 12:59 Dose: 50 mg Documented By: Admin: 07/18/22 21:39 Dose: 50 mg Documented By: Admin: 07/18/22 12:27 Dose: 50 mg Documented By: Admin: 07/17/22 20:27 Dose: 50 mg Documented By: Admin: 07/17/22 13:09 Dose: 50 mg Documented By: Admin: 07/16/22 23:15 Dose: 50 mg Documented By: Admin: 07/16/22 12:48 Dose: 50 mg Documented By: Admin: 07/16/22 01:39 Dose: 50 mg Documented By: Admin: 07/15/22 17:40 Dose: 50 mg Documented By: CHRYSTAL Trazodone HCl (Trazodone Hcl 50 Mg Tab) 50 mg PO HS ROBERT Stop: 08/14/22 20:59 Last Admin: 07/21/22 20:27 Dose: 50 mg Documented By: Admin: 07/20/22 20:52 Dose: 50 mg Documented By: Admin: 07/19/22 20:26 Dose: 50 mg Documented By: Admin: 07/18/22 20:36 Dose: 50 mg Documented By: Admin: 07/17/22 20:25 Dose: 50 mg Documented By: Admin: 07/16/22 20:41 Dose: 50 mg Documented By: Admin: 07/15/22 21:04 Dose: 50 mg Documented By: LAP Imaging Data Radiologist's Impression: Chest X-Ray 07/15/22 12:48 XR chest 1V portable CLINICAL HISTORY: weakness TECHNIQUE: Single frontal radiograph of the chest was obtained. Comparison: Comparison is made to chest radiograph 07/14/2022 FINDINGS: No lines and tubes are seen. Cardiomegaly is noted. A calcified aortic arch is seen. Reticular interstitial opacities are seen. No evidence of pleural effusion or pneumothorax. IMPRESSION: Interstitial lung disease and cardiomegaly again seen. No definite acute abnormality is noted superimposed against this background although mild pulmonary edema cannot be entirely excluded. ACT 112: Negative or not required by law. Electronically signed by: Mook Guido M.D. 07/15/2022 1:30 PM Blood Pressure Blood Pressure Findings: Normal blood pressure Blood Pressure Disposition: did not require urgent referral Discharge Plan Visit Data Chief Complaint: Pain (Generalized) Stated Complaint: GENERALIZED PAIN ED Provider: Luba Jimenez Discharge Problem: Pulmonary edema, Diabetes mellitus, type II, Weakness, Hypoxia Patient Disposition: Admitted As Inpatient Discharge Instructions Interventions: ED Discharge Assessment Last Done: 07/15/22 15:57
[2022-07-15] MEDS ORDERED: INSULIN ASPART PER UNIT SC ONE (18:15)
[2022-07-15] MEDS: MAGNESIUM OXIDE 400 MG TAB PO SCH (18:16)
[2022-07-15] MEDS ORDERED: ALBUTEROL HFA 8 GM INHALER INH PRN (18:34)
[2022-07-15] MEDS ORDERED: FUROSEMIDE 40 MG TAB PO SCH (21:00)
[2022-07-15] MEDS: rOPINIRole HCL 2 MG TABLET PO SCH (21:02)
[2022-07-15] MEDS: GABAPENTIN 300 MG CAP PO SCH (21:02)
[2022-07-15] MEDS: PANTOprazole 40 MG TAB PO SCH (21:03)
[2022-07-15] MEDS: NORTRIPTYLINE HCL 25 MG CAP PO SCH (21:03)
[2022-07-15] MEDS: traZODone HCL 50 MG TAB PO SCH (21:04)
[2022-07-15] MEDS: APIXABAN 5 MG TABLET PO SCH (21:04)
[2022-07-15] MEDS: AMOXICILLIN/CLAVULANATE 875 MG TAB PO SCH (21:04)
[2022-07-15] MEDS: LANTUS PER UNIT CHARGE SQ SCH (21:18)
[2022-07-15] MEDS: INSULIN ASPART PER UNIT SC SCH (21:19)
[2022-07-15] MEDS: CYCLOBENZAPRINE HCL 10 MG TAB PO PRN (22:06)
[2022-07-16] MEDS: traMADol HCL 50 MG TABLET PO PRN ×3 (01:39→23:15)
[2022-07-16] MEDS: ACETAMINOPHEN 325 MG TAB PO PRN (03:38)
[2022-07-16 07:00] LABS: Hematocrit (blood only) 39.9 % (34.1-44.9); Hemoglobin 12.7 g/dl (12.0-16.0); Mean Corpuscular Hemoglobin 30.2 pg (25.0-34.0); Mean Corpuscular Hgb Conc 31.8 g/dL (32.0-36.0); Mean Corpuscular Volume 94.8 fL (80.0-100.0); Mean Platelet Volume 10.1 fL (9.4-12.3); Platelet Count 234 K/uL (130-400); RDW Coefficient of Variation 15.3 % (11.5-14.5); RDW Standard Deviation 53.1 fL (36.4-46.3); Red Blood Count 4.21 M/uL (3.93-5.22); White Blood Count 9.17 K/ul (4.8-10.8)
[2022-07-16 07:11] LABS: BUN Creatinine Ratio 16.9 (10-20); Calcium 8.1 mg/dl (8.5-10.1); Est GFR (Non-African American) 36.3 ml/min; Potassium 3.2 mmol/L (3.5-5.1)
[2022-07-16] MEDS ORDERED: POTASSIUM CHLORIDE CRTAB 20 MEQ TABCR PO ONE (08:36)
[2022-07-16] MEDS: INSULIN ASPART PER UNIT SC SCH ×4 (08:36→20:42)
[2022-07-16] MEDS: LANTUS PER UNIT CHARGE SQ SCH ×2 (08:37→20:42)
[2022-07-16] MEDS: APIXABAN 5 MG TABLET PO SCH ×2 (08:44→20:40)
[2022-07-16] MEDS: AMOXICILLIN/CLAVULANATE 875 MG TAB PO SCH ×2 (08:44→20:39)
[2022-07-16] MEDS: FUROSEMIDE 40 MG TAB PO SCH ×2 (08:45→17:40)
[2022-07-16] MEDS: DULoxetine HCL 30 MG CAP PO SCH (08:45)
[2022-07-16] MEDS: DULoxetine HCL 60 MG CAP PO SCH (08:45)
[2022-07-16] MEDS: GABAPENTIN 300 MG CAP PO SCH ×3 (08:45→20:40)
[2022-07-16] MEDS: LEVOTHYROXINE SODIUM 50 MCG TABLET PO SCH (08:48)
[2022-07-16] MEDS: LEVOTHYROXINE SODIUM 200 MCG TABLET PO SCH (08:48)
[2022-07-16] MEDS: POTASSIUM CHLORIDE CRTAB 20 MEQ TABCR PO SCH ×2 (08:48→17:40)
--- NOTE | 2022-07-16 08:48 | Cardiology Consultation ---
Date of Consultation July 16, 2022 Assessment & Plan (1) Acute on chronic diastolic CHF (congestive heart failure): (2) Acute and chronic respiratory failure with hypoxia: (3) Elevated troponin: (4) Obesity hypoventilation syndrome: (5) ELISSA on CPAP: (6) DVT (deep venous thrombosis): (7) Non compliance w medication regimen: Plan Medically complex 67 year old female with acute on chronic diastolic CHF and hypoxia. Hx of DVT/PE- has a zoraida filter in place as well as on chronic Eliquis. Symptoms likely exacerbated by noncompliance with O2 over the last few days. Possible dietary indiscretions. HS troponin elevated, but trending downward. Patient without symptoms of angina. -Patient remains hypervolemic on exam. Renal function improving with diuresis- continue IV Lasix 40 mg BID -Trend BMP. Replace potassium for a goal of 4.0 and mag of 2.0 -Strict 2g sodium diet. Strict I&O. Daily standing weights. -Trop elevation likely due to demand ischemia in the setting of hypoxia and volume overload. Unlikely related to ACS. -Continue to monitor on Tele during admission. -CPAP with supplemental O2 when sleeping. Case discussed with Dr. Cevallos- will follow. Supervising Physician Co-Signing Physician Notes Cardiology attending: I personally performed a history and physical exam. Agree with findings and plan as outlined by TATIANA Ness with additions as noted below. Subjective: Patient without complaints other than back pain. Exam: Erythema of the dorsum of the right hand at Bite site, patient states trending toward improvement. Pulmonary: Decreased breath sounds at bases Cardiovascular: Soft heart sounds, no murmurs. Impression: As noted above Continue furosemide. Kedar Cevallos DO History of Present Illness Reason for Consultation: Elevated troponin and CHF Requesting Physician: [facility] hospitalist Attending Physician: Vidal De Leon MD History of Present Illness 67-year-old female initially presented to the emergency department due to a fall that took place at home. This is a second fall in 2 days. States that she has been feeling fatigued and weak over the last 2 days as well as more short of breath. She has not been using her supplemental O2 due to inability to set it up on her own after moving to a new apartment in [place]. She was previously seen in the emergency department on 07/14 due to a mechanical fall after slipping on carpet. Imaging was done without acute evidence of traumatic injury. She also noted that her cat bit her in her right hand swollen with cellulitic changes. Patient was started on Augmentin but never picked it up pharmacy. Of note, was admitted from 06/10-06/16 for decompensated heart failure with echo showing preserved EF and grade 1 diastolic dysfunction. No regional wall motion abnormalities identified. Lasix increased to 40mg BID on discharge. 07/15: In the emergency department she was given 40 mg of IV Lasix as well as aspirin. Magnesium was supplemented. Chest x-ray: Interstitial lung disease and cardiomegaly again seen. No definite acute abnormality is noted superimposed against this background although mild pulmonary edema cannot be entirely excluded. Labs: Serum creatinine improving with diuresis, 1.4 this morning (baseline between 1.2 and 1.4). Potassium low at 3.2. Supplemented with 20 mEq of KCl this a.m. High-sensitivity troponins peaked at 162.5 (11.1>>162.5>>160.5) EKG: Sinus tach, [address] or T wave abnormalities 07/16: Telemetry: SR 80-90s I&O: +1.9L Weight: 148.7 kg >> 150.8 kg (last outpatient weight dated 07/02: 150.4 kg) Upon entrance into the room patient sitting up on the edge of the bed in no acute distress. Patient is somewhat of a poor historian. States that since admission she is feeling "slightly" improved. Currently using 6L o2 via NC (normally on 2-4). Receiving furosemide 40 mg twice daily- notes that her legs are swollen, increased over his baseline. Does carry a history of DVT in the right leg- on Eliquis. No chest pain. No palpitations or dizziness. Continues to feel weak- able to ambulate to the restroom with assistance. Notes compliance with her CPAP at home, but not using O2 with it. Has not been able to tolerate CPAP here in the hospital. Denies any dietary indiscretions leading up to this admission. Primary outpatient cardiology provider: Dr. Woodall Past medical history: Chronic diastolic CHF-most recent CHF exacerbation requiring admission 05/2022 Chronic renal insufficiency Morbid obesity ELISSA on CPAP and supplemental O2 Possible interstitial lung disease Obesity hypoventilation syndrome Chronic hypoxic respiratory failure, on 2 to 4 L nasal cannula Hypertension Type 2 diabetes Chronic fibromyalgia History of bilateral pneumonia with extensive hospitalization in 2009 requiring intubation, [place] filter implantation with pulmonary embolus. Course complicated by heparin-induced thrombocytopenia and need for tracheostomy History of recurrent DVT, on Eliquis History of urosepsis/pneumonia with ELSIE 08/2021 No medication noncompliance Allergies Allergy/AdvReac Type Severity Reaction Status Date / Time morphine Allergy Severe VIOLENT Verified 12/26/21 00:54 REACTION-"ALMOST " SWELLING tetanus toxoid, adsorbed Allergy Intermediate PASSED OUT Verified 12/26/21 00:54 AND GOT SICK WHEN A CHILD bupropion [From Wellbutrin] AdvReac Intermediate Recurrent Verified 12/26/21 00:54 falls as per patient codeine AdvReac Intermediate Hallucinati Verified 12/26/21 00:54 ons empagliflozin AdvReac Intermediate YEAST Verified 12/26/21 00:54 [From Jardiance] INFECTIONS heparin AdvReac Intermediate HIT; FLUID Verified 12/26/21 00:54 IN LUNGS hydrocodone [From Vicodin] AdvReac Intermediate sleepiness Verified 12/26/21 00:54 Home Medications Medication Instructions Recorded Confirmed Type levothyroxine 200 mcg tablet 200 mcg PO QAM 06/09/18 07/15/22 History omeprazole 20 mg capsule,delayed 20 mg PO HS 06/09/18 07/15/22 History release cyclobenzaprine 10 mg tablet 10 mg PO HS PRN Muscle Spasm 12/08/18 07/15/22 History duloxetine 60 mg capsule,delayed 60 mg PO QAM 12/23/18 07/15/22 History release gabapentin 300 mg capsule 300 mg PO BID 05/09/19 07/15/22 History duloxetine 30 mg capsule,delayed 30 mg PO DAILY 01/25/20 07/15/22 History release trazodone 50 mg tablet 50 mg PO HS 01/25/20 07/15/22 History tramadol 50 mg tablet 50 mg PO Q8H PRN Pain 07/19/20 07/15/22 History insulin degludec 100 unit/mL (3 60 unit subcut HS 11/24/20 07/15/22 History mL) subcutaneous pen (Tresiba FlexTouch U-100 insulin) dicyclomine 20 mg tablet 20 mg PO QID PRN abdominal pain 03/27/21 07/15/22 History docusate sodium 100 mg capsule 100 mg PO BID PRN Constipation 03/27/21 07/15/22 History (Colace) insulin aspart U-100 100 unit/mL 40 unit subcut WM 03/27/21 07/15/22 History (3 mL) subcutaneous pen (Novolog Flexpen U-100 Insulin aspart) levothyroxine 50 mcg tablet 50 mcg PO QAM 03/27/21 07/15/22 History meclizine 12.5 mg tablet 12.5 mg PO TID PRN Dizziness 03/27/21 07/15/22 History nortriptyline 50 mg capsule 50 mg PO HS 03/27/21 07/15/22 History (Pamelor) clonazepam 0.5 mg tablet 0.5 mg PO BID PRN anxiety #0 tabs 03/28/21 07/15/22 Rx ropinirole 2 mg tablet 2 mg PO HS 09/20/21 07/15/22 History dulaglutide 4.5 mg/0.5 mL 4.5 mg subcut WK 10/15/21 07/15/22 History subcutaneous pen injector (Trulicity) apixaban 5 mg (74 tabs) tablets in 5 mg PO BID 12/26/21 07/15/22 History a dose pack (Eliquis) magnesium oxide 400 mg (241.3 mg 400 mg PO BID@1200,1800 #60 tabs 06/15/22 07/15/22 Rx magnesium) tablet amoxicillin 875 mg-potassium 1 tab PO BID #20 tabs 07/14/22 07/15/22 Rx clavulanate 125 mg tablet clotrimazole 10 mg jimena 10 mg PO UD 07/14/22 07/15/22 History potassium chloride 20 mEq 20 meq PO BID17 07/14/22 07/15/22 History tablet,extended release(part/cryst) albuterol sulfate 90 mcg/actuation 2 inh inhalation Q4H PRN Shortness 07/15/22 07/15/22 History aerosol inhaler Of Breath Or Wheezing azelastine 137 mcg (0.1 %) nasal 1 spray intranasal AMHS 07/15/22 07/15/22 History spray aerosol furosemide 40 mg tablet 40 mg PO BID 07/15/22 07/15/22 History metformin 500 mg tablet,extended 500 mg PO DAILY 07/15/22 07/15/22 History release 24 hr Patient History Medical History Carotid stenosis, right CKD (chronic kidney disease), stage III Depression with anxiety Diabetes Diabetes mellitus, type II Fibromyalgia GERD (gastroesophageal reflux disease) History of DVT (deep vein thrombosis) History of pulmonary embolism s/p zoraida filter HIT (heparin-induced thrombocytopenia) HLD (hyperlipidemia) HTN (hypertension) Hypothyroidism Morbid obesity ELISSA on CPAP Presence of IVC filter RLS (restless legs syndrome) Sepsis Subclavian artery stenosis Surgical History History of cholecystectomy History of colon resection secondary to R colon perforation, resected treated with colostomy and eventual reversal in 2008, Dr. Lerma History of thyroidectomy, total History of total right knee replacement History of tracheostomy 2010, secondary to acute resp failure secondary to pneumonia, transferred to [facility] Family History Father , age 74 Lung cancer Mother , age 45 Cirrhosis Social History (Updated 07/15/22 @ 15:52 by Varsha Duncan PA-C) Smoking Status: Never smoker Cigarettes Per Day: 15 pack year hx; Second Hand Exposure: No; Hx Alcohol Use: No Hx Substance Use: No Preferred Language: Citizen Of [place] Communication Ability: Effective Continuous Conveyor Screen Drier Required: No Beliefs That Will Affect Care: None marital status: Single Current Living Situation: Alone How many Children do You have: 0 Other Information That Helps Us Care for You: No Feels Safe at Home: Yes Safety Concerns: Feels Safe At This Time Assistive Devices: Cane and Walker Review of Systems Review of Systems: All systems reviewed & are unremarkable except as noted in HPI & below Physical Exam Constitutional: well nourished and + obese; no acute distress Eyes: PERRL, conjunctivae normal, anicteric sclerae Neck: normal visual inspection and trachea midline Respiratory: normal respiratory effort and + cough; no respiratory distress Auscultation: + rales; no rhonchi and no wheezes Cardiovascular: Rate/Rhythm: regular rate and regular rhythm Heart Sounds: normal S1 and normal S2 Vessels: + JVD Extremities: + edema (2+ BLLE pitting edema. R>L) Gastrointestinal (Abdomen): Inspection/Auscultation: + abdomen distended Percussion/Palpation: abdomen soft; abdomen nontender Skin: no rashes, warm and dry + erythema (noted on right fuentes ) Psychiatric: A+Ox3, euthymic affect Results & Data ([facility]) Vital Signs (Past 12 Hours) Vital Signs Temp Pulse Pulse Resp BP Pulse Ox O2 Del Method 07/16/22 07:07 90 07/16/22 03:00 36.7 C 93 H 20 127/54 L 96 Free Flow/Blow-by 07/15/22 22:02 93 H 07/15/22 23:22 36.8 C 95 H 20 145/66 H 95 CPAP 07/15/22 23:41 95 H 21 07/15/22 22:42 Nasal Cannula O2 Flow Rate 07/16/22 07:07 07/16/22 03:00 6 07/15/22 22:02 07/15/22 23:22 07/15/22 23:41 6 07/15/22 22:42 6 Laboratory Results Cardiac Enzymes 07/15/22 07/15/22 Range/Units 12:01 16:36 AST 24 (13-39) U/L Troponin I High Sens 162.5 H* D 160.5 H* (0-14) pg/ml CBC 07/15/22 07/16/22 Range/Units 12:01 06:19 WBC 9.83 9.17 (4.8-10.8) K/ul RBC 4.37 4.21 (3.93-5.22) M/uL Hgb 13.3 12.7 (12.0-16.0) g/dl Hct 40.4 39.9 (34.1-44.9) % Plt Count 296 234 (130-400) K/uL Neut # (Auto) 7.07 H (1.4-6.5) K/uL Lymph # (Auto) 1.64 (1.2-3.4) K/uL [place] # (Auto) 0.82 (0.24-0.82) K/uL Eos # (Auto) 0.12 (0-0.50) K/uL Baso # (Auto) 0.09 (0-0.2) K/uL Comprehensive Metabolic Panel 07/15/22 07/16/22 Range/Units 12:01 06:19 Sodium 136 136 (136-145) mmol/L Potassium 3.8 3.2 L (3.5-5.1) mmol/L Chloride 97 L 97 L (98-107) mmol/L Carbon Dioxide 29 31 (21-32) mmol/L BUN 28 H 25 H (6-23) mg/dl Creatinine 1.91 H 1.48 H D (0.6-1.2) mg/dl Glucose 253 H 200 H (70-99(Fasting)) mg/dl Calcium 8.6 8.1 L (8.5-10.1) mg/dl AST 24 (13-39) U/L ALT 19 (7-52) U/L Alkaline Phosphatase 70 (34-104) U/L Total Protein 7.2 (6.0-8.3) gm/dl Albumin 3.8 (3.4-5.0) gm/dl Intake and Output 07/15/22 07/16/22 07/16/22 22:59 06:59 14:59 Intake Total 546.667 / 1946.667 400 / 1946.667 Balance 546.667 / 1946.667 400 / 1946.667 Intake: IV 196.667 / 1196.667 Magnesium Sulfate / D5w 1 gm In 196.667 / 196.667 100 ml @ 100 mls/hr IV Q1H ROBERT Rx#:[id number] Oral 350 / 750 400 / 750 Other: # Unmeasured Voids 1 1 Weight 148 kg 150.8 kg Weight Measurement Method Built in Bedscale Standing Scale Diagnostic Findings Echo 06/11: Technically limited study. LVEF greater than 70%. No wall motion abnormalities. Grossly normal right ventricular size and function. Grade 1 diastolic dysfunction. Valvular structures not well visualized but no significant stenosis or regurgitation was noted. (1) DVT (deep venous thrombosis) Affected thrombotic vein of extremity: unspecified vein of extremity Chronicity: acute DVT location: lower extremity Laterality: right Qualified Code(s): I82.401 - Acute embolism and thrombosis of unspecified deep veins of right lower extremity
[2022-07-16 09:47] LABS: Estimated Average Glucose 183 mg/dl
[2022-07-16] MEDS: MAGNESIUM OXIDE 400 MG TAB PO SCH ×2 (12:44→17:40)
[2022-07-16] MEDS ORDERED: oxyCODONE HCL IR 5 MG TAB (IMMEDIATE RELEASE) PO STA (15:11)
[2022-07-16] MEDS: LIDOCAINE 5% 1 PATCH TD SCH (16:09)
[2022-07-16] MEDS: clonazePAM 0.5 MG TAB PO PRN (17:45)
[2022-07-16] MEDS: rOPINIRole HCL 2 MG TABLET PO SCH (20:39)
[2022-07-16] MEDS: PANTOprazole 40 MG TAB PO SCH (20:39)
[2022-07-16] MEDS: NORTRIPTYLINE HCL 25 MG CAP PO SCH (20:40)
[2022-07-16] MEDS: traZODone HCL 50 MG TAB PO SCH (20:41)
--- NOTE | 2022-07-16 20:51 | Hospitalist Progress Note ---
Date of Service July 16, 2022 Assessment & Plan (1) Cat bite: (2) Multiple falls: (3) Non compliance w medication regimen: (4) Acute and chronic respiratory failure with hypoxia: (5) Chronic diastolic heart failure: (6) Hypomagnesemia: (7) DVT (deep venous thrombosis): (8) Acute on chronic kidney failure: (9) HTN (hypertension): (10) Depression with anxiety: (11) Hypothyroidism: (12) ELISSA on CPAP: Plan This is a 67yo F with a PMH of morbid obesity, chronic diastolic heart failure, hypertensive heart disease, type 2 diabetes, recurrent DVT on Eliquis, obesity hypoventilation syndrome, chronic hypoxic respiratory failure on 2-4L NC @ baseline, ELISSA on CPAP with oxygen, RLS who presents after a fall in her apartment. Multiple falls Generalized weakness Noncompliant with medication regimen Falls at home likely exacerbated by running out of oxygen for the past 2 days. Patient requires 2 to 4 L nasal cannula oxygen at baseline due to obesity hypoventilation, ELISSA, CHF Continue PT/OT eval Fall precaution Elevated troponin Likely demand ischemia given acute on chronic respiratory failure, lack of oxygen at home, CKD Troponin elevated to 162.5 on admission --> repeat 160.5 EKG showed no acute ischemic changes Cardiology on board Already anticoagulated with Eliquis Denies any chest pain Acute on chronic respiratory failure with hypoxia Obesity hypoventilation syndrome Saturating 99% on 6 L nasal cannula, which is more than baseline. CXR showed No definite acute abnormality is noted superimposed against this background although mild pulmonary edema cannot be entirely excluded. Received 40 mg IV Lasix in ED Continue Lasix 40 mg p.o. twice daily Hypomagnesemia Initial magnesium 1.5. Continue magnesium supplement Continue monitor mag level Cat bite cellulitis Afebrile, no leukocytosis. Blood culture on 07/14 showed no growth Continue Augmentin Clinically improved Acute on chronic CKD III Creatinine admission 1.9 with (baseline ~1.5) Creatinine today 1.4 Monitor BMP while on Lasix ELISSA on CPAP CPAP HS with oxygen Morbid obesity BMI 55.3. Counseling on diet and exercise Diabetes mellitus, type II Most recent hemoglobin A1c 8 Continue basal/bolus insulin while admitted Continue monitor blood sugar Mood disorder Fibromyalgia Continue duloxetine, nortriptyline, gabapentin, clonazepam PRN Chronic pain Continue PRN tramadol, tylenol DVT Ppx: Eliquis Code status: FULL PCP: Pratima Admission and Anticipated Discharge Date Admission Date: July 15, 2022 Subjective Pt was seen an examined for follow up weakness and SOB Sitting at the edge of the bed with no acute distress having her meal Pt said that she just moved to her apartment and she did not have her oxygen She is waiting for the oxygen supplier to fix her oxygen She has been without oxygen for the last few days She said that she came because she felt her leg feel weak Review of Systems Review of Systems: All systems reviewed & are unremarkable except as noted in Subjective Physical Exam Physical Exam: General- No acute distress Head- atraumatic Eyes- PERRL, EOMI, ENT- oropharynx clear Neck- supple, no JVD Lungs- clear to auscultation Heart- regular rhythm; no murmur Abdomen- normal bowel sounds, soft, nontender Extremities- no calf tenderness, Erythema of the dorsum of the right hand at Bite site Neuro- alert, oriented x 3; PERRL, EOMI; no facial palsy; no dysarthria Skin- warm & dry Results & Data Results & Data ([facility]) Vital Signs (Past 12 Hours) Vital Signs Temp Pulse Pulse Resp BP Pulse Ox O2 Del Method 07/16/22 19:39 36.8 C 98 H 20 155/73 H 97 Nasal Cannula 07/16/22 16:06 36.8 C 94 H 20 162/69 H 91 Nasal Cannula 07/16/22 14:54 95 H 07/16/22 11:32 36.5 C 90 20 147/77 H 92 Nasal Cannula O2 Flow Rate 07/16/22 19:39 6 07/16/22 16:06 5 07/16/22 14:54 07/16/22 11:32 5 (1) DVT (deep venous thrombosis) Affected thrombotic vein of extremity: unspecified vein of extremity Chronicity: acute DVT location: lower extremity Laterality: right Qualified Code(s): I82.401 - Acute embolism and thrombosis of unspecified deep veins of right lower extremity (2) Cat bite Encounter type: initial encounter Qualified Code(s): W55.01XA - Bitten by cat, initial encounter
[2022-07-17 07:20] LABS: Hematocrit (blood only) 40.2 % (34.1-44.9); Hemoglobin 12.6 g/dl (12.0-16.0); Mean Corpuscular Hemoglobin 30.1 pg (25.0-34.0); Mean Corpuscular Hgb Conc 31.3 g/dL (32.0-36.0); Mean Corpuscular Volume 95.9 fL (80.0-100.0); Mean Platelet Volume 10.2 fL (9.4-12.3); Platelet Count 255 K/uL (130-400); RDW Coefficient of Variation 15.2 % (11.5-14.5); RDW Standard Deviation 53.1 fL (36.4-46.3); Red Blood Count 4.19 M/uL (3.93-5.22); White Blood Count 8.26 K/ul (4.8-10.8)
[2022-07-17 07:30] LABS: Creatinine Clr Calc Pharmacy 59.5 ml/min; Est GFR (African American) 45.7 ml/min; Est GFR (Non-African American) 39.5 ml/min; Potassium 3.8 mmol/L (3.5-5.1)
[2022-07-17] MEDS: POTASSIUM CHLORIDE CRTAB 20 MEQ TABCR PO SCH ×2 (09:02→17:20)
[2022-07-17] MEDS: FUROSEMIDE 40 MG TAB PO SCH (09:02)
[2022-07-17] MEDS: LEVOTHYROXINE SODIUM 200 MCG TABLET PO SCH (09:02)
[2022-07-17] MEDS: GABAPENTIN 300 MG CAP PO SCH ×3 (09:02→20:22)
[2022-07-17] MEDS: APIXABAN 5 MG TABLET PO SCH ×2 (09:03→20:21)
[2022-07-17] MEDS: AMOXICILLIN/CLAVULANATE 875 MG TAB PO SCH ×2 (09:03→20:21)
[2022-07-17] MEDS: LIDOCAINE 5% 1 PATCH TD SCH (09:03)
[2022-07-17] MEDS: LEVOTHYROXINE SODIUM 50 MCG TABLET PO SCH (09:03)
[2022-07-17] MEDS: DULoxetine HCL 30 MG CAP PO SCH (09:03)
[2022-07-17] MEDS: DULoxetine HCL 60 MG CAP PO SCH (09:03)
[2022-07-17] MEDS: LANTUS PER UNIT CHARGE SQ SCH ×2 (09:11→20:20)
[2022-07-17] MEDS: INSULIN ASPART PER UNIT SC SCH ×4 (09:11→20:20)
[2022-07-17] MEDS: ACETAMINOPHEN 325 MG TAB PO PRN ×3 (09:13→20:27)
[2022-07-17] MEDS: clonazePAM 0.5 MG TAB PO PRN (09:14)
--- NOTE | 2022-07-17 12:48 | Cardiology Progress Note ---
Date of Service July 17, 2022 Assessment & Plan (1) Acute on chronic diastolic CHF (congestive heart failure): (2) Acute and chronic respiratory failure with hypoxia: (3) Elevated troponin: (4) Obesity hypoventilation syndrome: (5) ELISSA on CPAP: (6) DVT (deep venous thrombosis): (7) Non compliance w medication regimen: Plan 67 year old female with acute on chronic diastolic CHF and hypoxia. Hx of DVT/PE with zoraida filter in place and chronically anticoagulated with Eliquis. Symptoms likely exacerbated by noncompliance with O2 over the last few days. Possible dietary indiscretions. HS troponin elevated, but trending downward. Patient without symptoms of angina. Positive fluid balance on oral furosemide. Transition to IV furosemide 40 twice daily. Follow daily weight, fluid balance, GFR, and electrolytes. Replace potassium and magnesium as indicated. Mild troponin elevation secondary to demand ischemia in the setting of hypoxia and volume overload. ACS unlikely. CPAP with supplemental O2 when sleeping. Admission and Anticipated Discharge Date Admission Date: July 15, 2022 Subjective Patient seen examined the bedside. Reports shortness of breath and edema. Denies chest pain or palpitations. Telemetry reveals sinus rhythm in the 90s. No orthopnea or PND. Fluid balance positive. Lab studies demonstrate stable renal function. Review of Systems Review of Systems: All systems reviewed & are unremarkable except as noted in Subjective Physical Exam Constitutional: + morbidly obese Respiratory: no labored breathing and no retractions Auscultation: + diminished lung sounds (Bilateral); no crackles, no rhonchi and no wheezes Cardiovascular: Rate/Rhythm: regular rate and regular rhythm Heart Sounds: normal S1 and normal S2; no murmur Vessels: no JVD (Difficult to assess due to body habitus) and no carotid bruit Gastrointestinal (Abdomen): Inspection/Auscultation: abdomen normal to inspection and normal bowel sounds; abdomen not distended Neurologic: moves all extremities; no focal motor deficits Psychiatric: A+Ox3, euthymic affect Results & Data ([facility]) Vital Signs (Past 12 Hours) Vital Signs Temp Pulse Resp BP BP Pulse Ox O2 Del Method 07/17/22 12:00 36.5 C 92 H 20 119/42 L 100 07/17/22 08:22 36.7 C 92 H 18 115/66 98 Nasal Cannula 07/17/22 04:19 36.8 C 97 H 20 106/58 L 93 Nasal Cannula O2 Flow Rate 07/17/22 12:00 6 07/17/22 08:22 6 07/17/22 04:19 6 (1) DVT (deep venous thrombosis) Affected thrombotic vein of extremity: unspecified vein of extremity Chronicity: acute DVT location: lower extremity Laterality: right Qualified Code(s): I82.401 - Acute embolism and thrombosis of unspecified deep veins of right lower extremity
[2022-07-17] MEDS: traMADol HCL 50 MG TABLET PO PRN ×2 (13:09→20:27)
[2022-07-17] MEDS: MAGNESIUM OXIDE 400 MG TAB PO SCH ×2 (13:09→17:20)
--- NOTE | 2022-07-17 15:43 | Hospitalist Progress Note ---
Date of Service July 17, 2022 Assessment & Plan (1) Cat bite: (2) Multiple falls: (3) Non compliance w medication regimen: (4) Acute and chronic respiratory failure with hypoxia: (5) Chronic diastolic heart failure: (6) Hypomagnesemia: (7) DVT (deep venous thrombosis): (8) Acute on chronic kidney failure: (9) HTN (hypertension): (10) Depression with anxiety: (11) Hypothyroidism: (12) ELISSA on CPAP: Plan This is a 67yo F with a PMH of morbid obesity, chronic diastolic heart failure, hypertensive heart disease, type 2 diabetes, recurrent DVT on Eliquis, obesity hypoventilation syndrome, chronic hypoxic respiratory failure on 2-4L NC @ baseline, ELISSA on CPAP with oxygen, RLS who presents after a fall in her apartment. Multiple falls Generalized weakness Noncompliant with medication regimen Falls at home likely exacerbated by running out of oxygen for the past 2 days. Patient requires 2 to 4 L nasal cannula oxygen at baseline due to obesity hypoventilation, ELISSA, CHF Continue PT/OT eval Fall precaution Elevated troponin Likely demand ischemia given acute on chronic respiratory failure, lack of oxygen at home, CKD Troponin elevated to 162.5 on admission --> repeat 160.5 EKG showed no acute ischemic changes Cardiology on board Already anticoagulated with Eliquis Denies any chest pain Acute on chronic respiratory failure with hypoxia Obesity hypoventilation syndrome Saturating 99% on 6 L nasal cannula, which is more than baseline. CXR showed No definite acute abnormality is noted superimposed against this background although mild pulmonary edema cannot be entirely excluded. Received 40 mg IV Lasix in ED Lasix changed back to 40mg IV BID Continue monitor I/O and BMP Hypomagnesemia Initial magnesium 1.5. Continue magnesium supplement Continue monitor mag level Cat bite cellulitis Afebrile, no leukocytosis. Blood culture on 07/14 showed no growth Continue Augmentin Clinically improved Acute on chronic CKD III Creatinine admission 1.9 with (baseline ~1.5) Creatinine today 1.3 Monitor BMP while on Lasix Abnormal UA urine cx positive for gram positive bacilli ( 8.000 CFU) No sensitivity to follow Asymptomatic ELISSA on CPAP CPAP HS with oxygen Morbid obesity BMI 55.3. Counseling on diet and exercise Diabetes mellitus, type II Most recent hemoglobin A1c 8 Continue basal/bolus insulin while admitted Continue monitor blood sugar Mood disorder Fibromyalgia Continue duloxetine, nortriptyline, gabapentin, clonazepam PRN Chronic pain Continue PRN tramadol, tylenol DVT Ppx: Eliquis Code status: FULL PCP: Pratima Admission and Anticipated Discharge Date Admission Date: July 15, 2022 Subjective Pt was seen an examined for follow up weakness and SOB Sitting in chair with no acute distress Pt said that she feels much better Denies any chest pain, palpitation, dizziness Review of Systems Review of Systems: All systems reviewed & are unremarkable except as noted in Subjective Physical Exam Physical Exam: General- No acute distress Head- atraumatic Eyes- PERRL, EOMI, ENT- oropharynx clear Neck- supple, no JVD Lungs- clear to auscultation Heart- regular rhythm; no murmur Abdomen- normal bowel sounds, soft, nontender Extremities- no calf tenderness, Erythema of the dorsum of the right hand at Bite site Neuro- alert, oriented x 3; PERRL, EOMI; no facial palsy; no dysarthria Skin- warm & dry Results & Data Results & Data ([facility]) Vital Signs (Past 12 Hours) Vital Signs Temp Pulse Pulse Resp BP BP Pulse Ox 07/17/22 15:24 36.4 C L 92 H 20 167/77 H 94 07/17/22 08:00 92 H 07/17/22 08:00 07/17/22 12:00 36.5 C 92 H 20 119/42 L 100 07/17/22 08:22 36.7 C 92 H 18 115/66 98 07/17/22 04:19 36.8 C 97 H 20 106/58 L 93 O2 Del Method O2 Flow Rate 07/17/22 15:24 2 07/17/22 08:00 07/17/22 08:00 Nasal Cannula 5 07/17/22 12:00 6 07/17/22 08:22 Nasal Cannula 6 07/17/22 04:19 Nasal Cannula 6 (1) Cat bite Encounter type: initial encounter Qualified Code(s): W55.01XA - Bitten by cat, initial encounter (2) DVT (deep venous thrombosis) Affected thrombotic vein of extremity: unspecified vein of extremity Chronicity: acute DVT location: lower extremity Laterality: right Qualified Code(s): I82.401 - Acute embolism and thrombosis of unspecified deep veins of right lower extremity
[2022-07-17] MEDS: FUROSEMIDE 40 MG/4 ML VIAL IV SCH (17:19)
[2022-07-17] MEDS: NORTRIPTYLINE HCL 25 MG CAP PO SCH (20:23)
[2022-07-17] MEDS: PANTOprazole 40 MG TAB PO SCH (20:24)
[2022-07-17] MEDS: traZODone HCL 50 MG TAB PO SCH (20:25)
[2022-07-17] MEDS: rOPINIRole HCL 2 MG TABLET PO SCH (20:25)
[2022-07-18 07:02] LABS: Calcium 8.1 mg/dl (8.5-10.1); Est GFR (African American) 46.6 ml/min; Est GFR (Non-African American) 40.2 ml/min; Magnesium 1.5 mg/dl (1.7-2.4); Potassium 3.9 mmol/L (3.5-5.1)
[2022-07-18] MEDS: LIDOCAINE 5% 1 PATCH TD SCH ×2 (08:29→09:00)
[2022-07-18] MEDS: APIXABAN 5 MG TABLET PO SCH ×2 (08:29→20:33)
[2022-07-18] MEDS: GABAPENTIN 300 MG CAP PO SCH ×3 (08:29→20:33)
[2022-07-18] MEDS: POTASSIUM CHLORIDE CRTAB 20 MEQ TABCR PO SCH ×2 (08:29→17:15)
[2022-07-18] MEDS: LEVOTHYROXINE SODIUM 200 MCG TABLET PO SCH (08:29)
[2022-07-18] MEDS: LEVOTHYROXINE SODIUM 50 MCG TABLET PO SCH (08:29)
[2022-07-18] MEDS: AMOXICILLIN/CLAVULANATE 875 MG TAB PO SCH ×2 (08:29→20:32)
[2022-07-18] MEDS: DULoxetine HCL 30 MG CAP PO SCH (08:29)
[2022-07-18] MEDS: DULoxetine HCL 60 MG CAP PO SCH (08:29)
[2022-07-18] MEDS: FUROSEMIDE 40 MG/4 ML VIAL IV SCH ×2 (08:30→17:15)
[2022-07-18] MEDS: LANTUS PER UNIT CHARGE SQ SCH ×2 (08:36→20:38)
[2022-07-18] MEDS: MAGNESIUM SULFATE / D5W 1 GM/100 ML BAG IV SCH ×2 (08:36→08:58)
[2022-07-18] MEDS: INSULIN ASPART PER UNIT SC SCH ×4 (08:36→20:34)
[2022-07-18] MEDS: clonazePAM 0.5 MG TAB PO PRN (08:37)
[2022-07-18] MEDS: ACETAMINOPHEN 325 MG TAB PO PRN ×2 (08:37→12:26)
--- NOTE | 2022-07-18 10:42 | Cardiology Progress Note ---
Date of Service July 18, 2022 Assessment & Plan (1) Acute on chronic diastolic CHF (congestive heart failure): (2) Acute and chronic respiratory failure with hypoxia: (3) Elevated troponin: (4) Obesity hypoventilation syndrome: (5) ELISSA on CPAP: (6) DVT (deep venous thrombosis): (7) Non compliance w medication regimen: (8) UTI (urinary tract infection): Plan 67 year old female with acute on chronic diastolic CHF and hypoxia. Hx of DVT/PE with zoraida filter in place and chronically anticoagulated with Eliquis. Symptoms likely exacerbated by noncompliance with O2 over the last few days. Possible dietary indiscretions. HS troponin elevated, but trending downward. Pa tient without symptoms of angina. Continue IV furosemide 40 twice daily. Follow daily weight, fluid balance, GFR, and electrolytes. Replace potassium and magnesium as indicated. Mild troponin elevation secondary to demand ischemia in the setting of hypoxia and volume overload. ACS unlikely. CPAP with supplemental O2 when sleeping. Patient will obtain her home CPAP as she cannot tolerate the unit provided by the respiratory service. Admission and Anticipated Discharge Date Admission Date: July 15, 2022 Subjective Patient seen examined at the bedside. Reports abdominal discomfort yesterday after receiving furosemide. Reports wheezing and cough today. No fever chills overnight. Telemetry reveals sinus rhythm 90s to 100 bpm. No dysrhythmias. Denies orthopnea or PND. Lower extremity edema unchanged. Fluid balance -256 cc. Review of Systems Review of Systems: All systems reviewed & are unremarkable except as noted in Subjective Physical Exam Constitutional: + morbidly obese Respiratory: no labored breathing and no retractions Auscultation: + diminished lung sounds (Bilateral); no crackles, no rhonchi and no wheezes Cardiovascular: Rate/Rhythm: regular rate and regular rhythm Heart Sounds: normal S1 and normal S2; no murmur Vessels: no JVD (Difficult to assess due to body habitus) and no carotid bruit Gastrointestinal (Abdomen): Inspection/Auscultation: abdomen normal to inspection and normal bowel sounds; abdomen not distended Neurologic: moves all extremities; no focal motor deficits Psychiatric: A+Ox3, euthymic affect Results & Data ([facility]) Vital Signs (Past 12 Hours) Vital Signs Temp Pulse Pulse Resp BP Pulse Ox O2 Del Method 07/18/22 09:06 98 H 74 L Nasal Cannula 07/18/22 07:45 67 L Room Air 07/18/22 06:22 36.6 C 102 H 20 147/67 H 96 Nasal Cannula 07/18/22 04:33 36.7 C 90 20 150/72 H 99 Nasal Cannula 07/17/22 23:32 89 07/17/22 23:17 Nasal Cannula 07/17/22 23:03 36.8 C 90 22 158/77 H 99 Nasal Cannula O2 Flow Rate 07/18/22 09:06 4 07/18/22 07:45 07/18/22 06:22 6 07/18/22 04:33 6 07/17/22 23:32 07/17/22 23:17 5 07/17/22 23:03 5 (1) DVT (deep venous thrombosis) Affected thrombotic vein of extremity: unspecified vein of extremity Chronicity: acute DVT location: lower extremity Laterality: right Qualified Code(s): I82.401 - Acute embolism and thrombosis of unspecified deep veins of right lower extremity
[2022-07-18] MEDS: MAGNESIUM OXIDE 400 MG TAB PO SCH ×2 (12:18→17:15)
[2022-07-18] MEDS: traMADol HCL 50 MG TABLET PO PRN ×2 (12:27→21:39)
[2022-07-18] MEDS: DOCUSATE SODIUM 100 MG CAP PO PRN (17:14)
[2022-07-18] MEDS ORDERED: CLOTRIMAZOLE 10 MG TROCHE BUCCAL SCH (19:00)
[2022-07-18] MEDS: CLOTRIMAZOLE 10 MG TROCHE BUCCAL SCH ×2 (19:22→22:09)
[2022-07-18] MEDS: DICYCLOMINE HCL 20 MG TAB PO PRN (19:23)
[2022-07-18] MEDS: NORTRIPTYLINE HCL 25 MG CAP PO SCH (20:34)
[2022-07-18] MEDS: rOPINIRole HCL 2 MG TABLET PO SCH (20:35)
[2022-07-18] MEDS: PANTOprazole 40 MG TAB PO SCH (20:35)
[2022-07-18] MEDS: traZODone HCL 50 MG TAB PO SCH (20:36)
[2022-07-18] MEDS: CYCLOBENZAPRINE HCL 10 MG TAB PO PRN (21:39)
--- NOTE | 2022-07-18 22:50 | Hospitalist Progress Note ---
Date of Service July 18, 2022 Assessment & Plan (1) Cat bite: (2) Multiple falls: (3) Non compliance w medication regimen: (4) Acute and chronic respiratory failure with hypoxia: (5) Chronic diastolic heart failure: (6) Hypomagnesemia: (7) DVT (deep venous thrombosis): (8) Acute on chronic kidney failure: (9) HTN (hypertension): (10) Depression with anxiety: (11) Hypothyroidism: (12) ELISSA on CPAP: Plan This is a 67yo F with a PMH of morbid obesity, chronic diastolic heart failure, hypertensive heart disease, type 2 diabetes, recurrent DVT on Eliquis, obesity hypoventilation syndrome, chronic hypoxic respiratory failure on 2-4L NC @ baseline, ELISSA on CPAP with oxygen, RLS who presents after a fall in her apartment. Multiple falls Generalized weakness Noncompliant with medication regimen Falls at home likely exacerbated by running out of oxygen for the past 2 days. Patient requires 2 to 4 L nasal cannula oxygen at baseline due to obesity hypoventilation, ELISSA, CHF Continue PT/OT eval Fall precaution Elevated troponin Likely demand ischemia given acute on chronic respiratory failure, lack of oxygen at home, CKD Troponin elevated to 162.5 on admission --> repeat 160.5 EKG showed no acute ischemic changes Cardiology on board Already anticoagulated with Eliquis Denies any chest pain Acute on chronic respiratory failure with hypoxia Obesity hypoventilation syndrome Saturating 99% on 6 L nasal cannula, which is more than baseline. CXR showed No definite acute abnormality is noted superimposed against this background although mild pulmonary edema cannot be entirely excluded. Received 40 mg IV Lasix in ED Continue IV lasix 40 mg daily BID Continue monitor I/O and BMP Hypomagnesemia Initial magnesium 1.5. Magnesium replaced Continue monitor mag level Cat bite cellulitis Afebrile, no leukocytosis. Blood culture on 07/14 showed no growth Continue Augmentin Clinically improved Acute on chronic CKD III Creatinine admission 1.9 with (baseline ~1.5) Creatinine today 1.3 Monitor BMP while on Lasix Abnormal UA urine cx positive for gram positive bacilli ( 8.000 CFU) No sensitivity to follow Asymptomatic ELISSA on CPAP CPAP HS with oxygen She was not able to tolerate the hospital CPAP and someone brought her home CPAP machine Morbid obesity BMI 55.3. Counseling on diet and exercise Diabetes mellitus, type II Most recent hemoglobin A1c 8 Continue basal/bolus insulin while admitted Continue monitor blood sugar Mood disorder Fibromyalgia Continue duloxetine, nortriptyline, gabapentin, clonazepam PRN Chronic pain Continue PRN tramadol, tylenol DVT Ppx: Eliquis Code status: FULL PCP: Pratima Admission and Anticipated Discharge Date Admission Date: July 15, 2022 Subjective Pt was seen an examined for follow up weakness and SOB Sitting in chair with no acute distress Lower extremity edema no change Someone brought her the Cpap machine since she cannot tolerate our cpap machine Denies any chest pain, palpitation, dizziness Review of Systems Review of Systems: All systems reviewed & are unremarkable except as noted in Subjective Physical Exam Physical Exam: General- No acute distress Head- atraumatic Eyes- PERRL, EOMI, ENT- oropharynx clear Neck- supple, no JVD Lungs- clear to auscultation Heart- regular rhythm; no murmur Abdomen- normal bowel sounds, soft, nontender Extremities- no calf tenderness, Erythema of the dorsum of the right hand at Bite site, +edema R>L Neuro- alert, oriented x 3; PERRL, EOMI; no facial palsy; no dysarthria Skin- warm & dry Results & Data Results & Data ([facility]) Vital Signs (Past 12 Hours) Vital Signs Temp Pulse Pulse Resp BP Pulse Ox O2 Del Method 07/18/22 19:43 36.4 C L 84 20 170/76 H 95 Nasal Cannula 07/18/22 19:52 Nasal Cannula 07/18/22 16:00 89 20 139/67 94 Nasal Cannula 07/18/22 15:00 88 07/18/22 12:00 36.7 C 91 H 20 161/61 H 94 Nasal Cannula O2 Flow Rate 07/18/22 19:43 4 07/18/22 19:52 4 07/18/22 16:00 4 07/18/22 15:00 07/18/22 12:00 4 (1) Cat bite Encounter type: initial encounter Qualified Code(s): W55.01XA - Bitten by cat, initial encounter (2) DVT (deep venous thrombosis) Affected thrombotic vein of extremity: unspecified vein of extremity Chronicity: acute DVT location: lower extremity Laterality: right Qualified Code(s): I82.401 - Acute embolism and thrombosis of unspecified deep veins of right lower extremity
[2022-07-19] MEDS: ACETAMINOPHEN 325 MG TAB PO PRN ×2 (02:00→12:58)
[2022-07-19] MEDS: CLOTRIMAZOLE 10 MG TROCHE BUCCAL SCH ×4 (06:10→20:27)
[2022-07-19 08:20] LABS: BUN Creatinine Ratio 13.5 (10-20); Calcium 8.4 mg/dl (8.5-10.1); Creatinine Clr Calc Pharmacy 58.1 ml/min; Est GFR (African American) 44.6 ml/min; Est GFR (Non-African American) 38.5 ml/min; Potassium 4.1 mmol/L (3.5-5.1)
[2022-07-19] MEDS: FUROSEMIDE 40 MG/4 ML VIAL IV SCH ×2 (09:14→18:12)
[2022-07-19] MEDS: LEVOTHYROXINE SODIUM 50 MCG TABLET PO SCH (09:15)
[2022-07-19] MEDS: APIXABAN 5 MG TABLET PO SCH ×2 (09:15→20:23)
[2022-07-19] MEDS: DICYCLOMINE HCL 20 MG TAB PO PRN (09:15)
[2022-07-19] MEDS: DULoxetine HCL 30 MG CAP PO SCH (09:15)
[2022-07-19] MEDS: DULoxetine HCL 60 MG CAP PO SCH (09:15)
[2022-07-19] MEDS: AMOXICILLIN/CLAVULANATE 875 MG TAB PO SCH ×2 (09:15→20:25)
[2022-07-19] MEDS: GABAPENTIN 300 MG CAP PO SCH ×3 (09:15→20:25)
[2022-07-19] MEDS: LIDOCAINE 5% 1 PATCH TD SCH (09:16)
[2022-07-19] MEDS: LEVOTHYROXINE SODIUM 200 MCG TABLET PO SCH (09:16)
[2022-07-19] MEDS: POTASSIUM CHLORIDE CRTAB 20 MEQ TABCR PO SCH ×2 (09:16→18:12)
[2022-07-19] MEDS: INSULIN ASPART PER UNIT SC SCH ×4 (09:25→20:22)
[2022-07-19] MEDS: clonazePAM 0.5 MG TAB PO PRN (09:25)
[2022-07-19] MEDS: LANTUS PER UNIT CHARGE SQ SCH ×2 (09:26→20:22)
--- NOTE | 2022-07-19 11:30 | Cardiology Progress Note ---
Date of Service July 19, 2022 Assessment & Plan (1) Acute on chronic diastolic CHF (congestive heart failure): (2) Acute and chronic respiratory failure with hypoxia: (3) Elevated troponin: (4) Obesity hypoventilation syndrome: (5) ELISSA on CPAP: (6) DVT (deep venous thrombosis): (7) Non compliance w medication regimen: (8) UTI (urinary tract infection): Plan 67 year old female with acute on chronic diastolic CHF and hypoxia. Hx of DVT/PE with zoraida filter in place and chronically anticoagulated with Eliquis. Continue IV furosemide 40 twice daily. Follow daily weight, fluid balance, GFR, and electrolytes. Replace potassium and magnesium as indicated. Mild troponin elevation secondary to demand ischemia in the setting of hypoxia and volume overload. ACS unlikely. CPAP with supplemental O2 when sleeping. Admission and Anticipated Discharge Date Admission Date: July 15, 2022 Subjective Patient seen examined the bedside. Mild erythema of her right pretibial region noted. Edema unchanged. Fluid balance -1.6 L. Creatinine relatively stable at 1.4. Telemetry feels sinus rhythm in the 80s. Nocturnal hypoxia noted. She has obtained her home CPAP monitor. Review of Systems Review of Systems: All systems reviewed & are unremarkable except as noted in Subjective Physical Exam Constitutional: + morbidly obese Respiratory: no labored breathing and no retractions Auscultation: + diminished lung sounds (Bilateral); no crackles, no rhonchi and no wheezes Cardiovascular: Rate/Rhythm: regular rate and regular rhythm Heart Sounds: normal S1 and normal S2; no murmur Vessels: no JVD (Difficult to assess due to body habitus) and no carotid bruit Gastrointestinal (Abdomen): Inspection/Auscultation: abdomen normal to inspection and normal bowel sounds; abdomen not distended Neurologic: moves all extremities; no focal motor deficits Psychiatric: A+Ox3, euthymic affect Results & Data ([facility]) Vital Signs (Past 12 Hours) Vital Signs Temp Pulse Resp BP Pulse Ox O2 Del Method O2 Flow Rate 07/19/22 09:31 69 178/72 H 07/19/22 07:22 36.5 C 84 22 105/54 L 98 Nasal Cannula 5 07/19/22 03:16 36.6 C 89 16 117/59 L 96 Nasal Cannula 5 (1) DVT (deep venous thrombosis) Affected thrombotic vein of extremity: unspecified vein of extremity Chronicity: acute DVT location: lower extremity Laterality: right Qualified Code(s): I82.401 - Acute embolism and thrombosis of unspecified deep veins of right lower extremity
[2022-07-19] MEDS: MAGNESIUM OXIDE 400 MG TAB PO SCH ×2 (12:53→18:12)
[2022-07-19] MEDS: traMADol HCL 50 MG TABLET PO PRN (12:59)
--- NOTE | 2022-07-19 17:44 | Hospitalist Progress Note ---
Date of Service July 19, 2022 Assessment & Plan (1) Cat bite: (2) Multiple falls: (3) Non compliance w medication regimen: (4) Acute and chronic respiratory failure with hypoxia: (5) Chronic diastolic heart failure: (6) Hypomagnesemia: (7) DVT (deep venous thrombosis): (8) Acute on chronic kidney failure: (9) HTN (hypertension): (10) Depression with anxiety: (11) Hypothyroidism: (12) ELISSA on CPAP: Plan This is a 67yo F with a PMH of morbid obesity, chronic diastolic heart failure, hypertensive heart disease, type 2 diabetes, recurrent DVT on Eliquis, obesity hypoventilation syndrome, chronic hypoxic respiratory failure on 2-4L NC @ baseline, ELISSA on CPAP with oxygen, RLS who presents after a fall in her apartment. Multiple falls Generalized weakness Noncompliant with medication regimen Falls at home likely exacerbated by running out of oxygen for the past 2 days. Patient requires 2 to 4 L nasal cannula oxygen at baseline due to obesity hypoventilation, ELISSA, CHF Continue PT/OT eval Fall precaution Elevated troponin Likely demand ischemia given acute on chronic respiratory failure, lack of oxygen at home, CKD Troponin elevated to 162.5 on admission --> repeat 160.5 EKG showed no acute ischemic changes Cardiology on board Already anticoagulated with Eliquis Denies any chest pain Acute on chronic respiratory failure with hypoxia Obesity hypoventilation syndrome Saturating 99% on 6 L nasal cannula, which is more than baseline. CXR showed No definite acute abnormality is noted superimposed against this background although mild pulmonary edema cannot be entirely excluded. Received 40 mg IV Lasix in ED Continue IV lasix 40 mg daily BID Continue monitor I/O and BMP Might consider to transition to PO in am Hypomagnesemia Initial magnesium 1.5. Magnesium replaced Continue monitor mag level Cat bite cellulitis Afebrile, no leukocytosis. Blood culture on 07/14 showed no growth Continue Augmentin Clinically improved Acute on chronic CKD III Creatinine admission 1.9 with (baseline ~1.5) Creatinine today 1.4 Monitor BMP while on Lasix Abnormal UA urine cx positive for gram positive bacilli ( 8.000 CFU) No sensitivity to follow Asymptomatic ELISSA on CPAP CPAP HS with oxygen She was not able to tolerate the hospital CPAP and someone brought her home CPAP machine Morbid obesity BMI 55.3. Counseling on diet and exercise Diabetes mellitus, type II Most recent hemoglobin A1c 8 Continue basal/bolus insulin while admitted Continue monitor blood sugar Mood disorder Fibromyalgia Continue duloxetine, nortriptyline, gabapentin, clonazepam PRN Chronic pain Continue PRN tramadol, tylenol DVT Ppx: Eliquis Code status: FULL PCP: Pratima Admission and Anticipated Discharge Date Admission Date: July 15, 2022 Subjective Pt was seen an examined for follow up weakness and SOB Lying in bed with no acute distress Denies any chest pain, palpitation, dizziness Review of Systems Review of Systems: All systems reviewed & are unremarkable except as noted in Subjective Physical Exam Physical Exam: General- No acute distress Head- atraumatic Eyes- PERRL, EOMI, ENT- oropharynx clear Neck- supple, no JVD Lungs- clear to auscultation Heart- regular rhythm; no murmur Abdomen- normal bowel sounds, soft, nontender Extremities- no calf tenderness, Erythema of the dorsum of the right hand at Bite site, +edema R>L Neuro- alert, oriented x 3; PERRL, EOMI; no facial palsy; no dysarthria Skin- warm & dry Results & Data Results & Data ([facility]) Vital Signs (Past 12 Hours) Vital Signs Temp Pulse Pulse Resp BP Pulse Ox O2 Del Method 07/19/22 15:33 36.7 C 90 22 136/64 98 Nasal Cannula 07/19/22 15:00 87 07/19/22 08:00 86 07/19/22 08:00 Nasal Cannula 07/19/22 11:29 36.7 C 87 22 159/74 H 94 Nasal Cannula 07/19/22 09:31 69 178/72 H 07/19/22 07:22 36.5 C 84 22 105/54 L 98 Nasal Cannula O2 Flow Rate 07/19/22 15:33 5 07/19/22 15:00 07/19/22 08:00 07/19/22 08:00 5 07/19/22 11:29 5 07/19/22 09:31 07/19/22 07:22 5 (1) Cat bite Encounter type: initial encounter Qualified Code(s): W55.01XA - Bitten by cat, initial encounter (2) DVT (deep venous thrombosis) Affected thrombotic vein of extremity: unspecified vein of extremity Chronicity: acute DVT location: lower extremity Laterality: right Qualified Code(s): I82.401 - Acute embolism and thrombosis of unspecified deep veins of right lower extremity
[2022-07-19] MEDS: DOCUSATE SODIUM 100 MG CAP PO PRN (18:18)
[2022-07-19] MEDS: rOPINIRole HCL 2 MG TABLET PO SCH (20:23)
[2022-07-19] MEDS: PANTOprazole 40 MG TAB PO SCH (20:23)
[2022-07-19] MEDS: NORTRIPTYLINE HCL 25 MG CAP PO SCH (20:24)
[2022-07-19] MEDS: traZODone HCL 50 MG TAB PO SCH (20:26)
[2022-07-20] MEDS: ACETAMINOPHEN 325 MG TAB PO PRN (06:47)
[2022-07-20] MEDS: CLOTRIMAZOLE 10 MG TROCHE BUCCAL SCH ×5 (06:47→20:55)
[2022-07-20 06:48] LABS: BUN Creatinine Ratio 13.9 (10-20); Calcium 8.6 mg/dl (8.5-10.1); Creatinine Clr Calc Pharmacy 59.6 ml/min; Est GFR (African American) 46.1 ml/min; Est GFR (Non-African American) 39.8 ml/min; Magnesium 1.6 mg/dl (1.7-2.4); Potassium 3.6 mmol/L (3.5-5.1)
[2022-07-20] MEDS: AMOXICILLIN/CLAVULANATE 875 MG TAB PO SCH ×2 (07:37→20:54)
[2022-07-20] MEDS: POTASSIUM CHLORIDE CRTAB 20 MEQ TABCR PO SCH ×2 (07:37→17:08)
[2022-07-20] MEDS: LEVOTHYROXINE SODIUM 50 MCG TABLET PO SCH (07:37)
[2022-07-20] MEDS: GABAPENTIN 300 MG CAP PO SCH ×3 (07:38→20:55)
[2022-07-20] MEDS: DULoxetine HCL 60 MG CAP PO SCH (07:38)
[2022-07-20] MEDS: FUROSEMIDE 40 MG/4 ML VIAL IV SCH ×2 (07:38→17:09)
[2022-07-20] MEDS: APIXABAN 5 MG TABLET PO SCH ×2 (07:38→20:52)
[2022-07-20] MEDS: LEVOTHYROXINE SODIUM 200 MCG TABLET PO SCH (07:39)
[2022-07-20] MEDS: LIDOCAINE 5% 1 PATCH TD SCH (07:39)
[2022-07-20] MEDS: DULoxetine HCL 30 MG CAP PO SCH (07:40)
[2022-07-20] MEDS ORDERED: MAGNESIUM SULFATE / D5W 1 GM/100 ML BAG IV ONE (07:54)
[2022-07-20] MEDS: LANTUS PER UNIT CHARGE SQ SCH ×2 (09:32→20:51)
[2022-07-20] MEDS: INSULIN ASPART PER UNIT SC SCH ×4 (09:33→20:44)
[2022-07-20] MEDS: MAGNESIUM OXIDE 400 MG TAB PO SCH ×2 (11:23→17:08)
[2022-07-20] MEDS: traMADol HCL 50 MG TABLET PO PRN ×2 (13:30→21:33)
[2022-07-20] MEDS: clonazePAM 0.5 MG TAB PO PRN (13:30)
--- NOTE | 2022-07-20 15:02 | Cardiology Progress Note ---
Date of Service July 20, 2022 Assessment & Plan (1) Acute on chronic diastolic CHF (congestive heart failure): (2) Acute and chronic respiratory failure with hypoxia: (3) Elevated troponin: (4) Obesity hypoventilation syndrome: (5) ELISSA on CPAP: (6) DVT (deep venous thrombosis): (7) Non compliance w medication regimen: (8) UTI (urinary tract infection): Plan 67 year old female with acute on chronic diastolic CHF and hypoxia. Hx of DVT/PE with zoraida filter in place and chronically anticoagulated with Eliquis. Continue IV furosemide 40 twice daily. Follow daily weight, fluid balance, GFR, and electrolytes. Replace potassium and magnesium as indicated. Mild troponin elevation secondary to demand ischemia in the setting of hypoxia and volume overload. ACS unlikely. CPAP with supplemental O2 when sleeping. Patient slowly improving. Would continue IV furosemide as ordered until plans for discharge then convert to sinus rhythm. Chronic diastolic heart failure improving with oxygen and CPAP and diuresis Acute process of cellulitis/infection right hand improving Will give additional dose of potassium this afternoon. Patient not on spironolactone due to prior renal sufficiency and hyperkalemia Admission and Anticipated Discharge Date Admission Date: July 15, 2022 Subjective Patient seen and examined, chart reviewed. Patient sitting up on the edge of bed. No acute complaints. Gradual diuresis with lower extremity edema slightly improved. Less erythema right fuentes She is wearing oxygen and now using CPAP at night Hand infection cat bite, abscess improving per patient with less erythema and tenderness No dizziness lightness syncope or near syncope Review of Systems Review of Systems: All systems reviewed & are unremarkable except as noted in Subjective Physical Exam Constitutional: well nourished, + morbidly obese and + obese; no acute distress Eyes: PERRL, conjunctivae normal, anicteric sclerae Neck: normal visual inspection and trachea midline Respiratory: normal respiratory effort and + cough; no respiratory distress, no labored breathing and no retractions Auscultation: + diminished lung sounds (Bilateral) and + rales; no crackles, no rhonchi and no wheezes Cardiovascular: Rate/Rhythm: regular rate and regular rhythm Heart Sounds: normal S1 and normal S2; no murmur Vessels: no JVD (Difficult to assess due to body habitus) and no carotid bruit Extremities: + edema (2+ BLLE pitting edema. R>L) Gastrointestinal (Abdomen): Inspection/Auscultation: abdomen normal to inspection and normal bowel sounds; abdomen not distended Percussion/Palpation: abdomen soft; abdomen nontender Skin: no rashes, warm and dry + erythema (noted on right fuentes ) Neurologic: moves all extremities; no focal motor deficits Psychiatric: A+Ox3, euthymic affect Results & Data ([facility]) Vital Signs (Past 12 Hours) Vital Signs Temp Pulse Pulse Resp BP BP Pulse Ox 07/20/22 14:59 90 07/20/22 11:24 36.9 C 85 18 126/74 97 07/20/22 07:30 07/20/22 07:30 36.8 C 89 20 93/56 L 97 07/20/22 07:22 87 07/20/22 03:03 36.7 C 92 H 20 144/53 H 97 O2 Del Method O2 Flow Rate 07/20/22 14:59 07/20/22 11:24 07/20/22 07:30 Nasal Cannula 5 07/20/22 07:30 Nasal Cannula 5 07/20/22 07:22 07/20/22 03:03 Nasal Cannula 5 Laboratory Results Laboratory Results - last 24 hr 07/19/22 07/19/22 07/20/22 16:36 20:02 05:45 Sodium 135 L Potassium 3.6 Chloride 96 L Carbon Dioxide 33 H Anion Gap 6 BUN 19 Creatinine 1.37 H Est Cr Clr Drug Dosing 59.6 Est GFR ( Amer) 46.1 Est GFR (Non-Af Amer) 39.8 BUN/Creatinine Ratio 13.9 Glucose 173 H POC Glucose 150 H 164 H Calcium 8.6 Magnesium 1.6 L 07/20/22 07/20/22 07:52 11:29 Sodium Potassium Chloride Carbon Dioxide Anion Gap BUN Creatinine Est Cr Clr Drug Dosing Est GFR ( Amer) Est GFR (Non-Af Amer) BUN/Creatinine Ratio Glucose POC Glucose 181 H 185 H Calcium Magnesium (1) DVT (deep venous thrombosis) Affected thrombotic vein of extremity: unspecified vein of extremity Chronicity: acute DVT location: lower extremity Laterality: right Qualified Code(s): I82.401 - Acute embolism and thrombosis of unspecified deep veins of right lower extremity
[2022-07-20] MEDS ORDERED: POTASSIUM CHLORIDE CRTAB 20 MEQ TABCR PO ONE (15:33)
--- NOTE | 2022-07-20 19:54 | Hospitalist Progress Note ---
Date of Service July 20, 2022 Assessment & Plan (1) Cat bite: (2) Multiple falls: (3) Non compliance w medication regimen: (4) Acute and chronic respiratory failure with hypoxia: (5) Chronic diastolic heart failure: (6) Hypomagnesemia: (7) DVT (deep venous thrombosis): (8) Acute on chronic kidney failure: (9) HTN (hypertension): (10) Depression with anxiety: (11) Hypothyroidism: (12) ELISSA on CPAP: Plan This is a 67yo F with a PMH of morbid obesity, chronic diastolic heart failure, hypertensive heart disease, type 2 diabetes, recurrent DVT on Eliquis, obesity hypoventilation syndrome, chronic hypoxic respiratory failure on 2-4L NC @ baseline, ELISSA on CPAP with oxygen, RLS who presents after a fall in her apartment. Multiple falls Generalized weakness Noncompliant with medication regimen Falls at home likely exacerbated by running out of oxygen for the past 2 days. Patient requires 2 to 4 L nasal cannula oxygen at baseline due to obesity hypoventilation, ELISSA, CHF Continue PT/OT eval Fall precaution Elevated troponin Likely demand ischemia given acute on chronic respiratory failure, lack of oxygen at home, CKD Troponin elevated to 162.5 on admission --> repeat 160.5 EKG showed no acute ischemic changes Cardiology on board Already anticoagulated with Eliquis Denies any chest pain Acute on chronic respiratory failure with hypoxia Obesity hypoventilation syndrome Saturating 99% on 6 L nasal cannula, which is more than baseline. CXR showed No definite acute abnormality is noted superimposed against this background although mild pulmonary edema cannot be entirely excluded. Received 40 mg IV Lasix in ED Cardiology recommended to continue IV lasix 40 mg BID Continue monitor I/O and BMP Might consider to transition to PO in am Electrolytes imbalance Magnesium 1.6 and K 3.6 Magnesium and K replaced Continue monitor electrolytes Cat bite cellulitis Afebrile, no leukocytosis. Blood culture on 07/14 showed no growth Continue Augmentin Clinically improved Acute on chronic CKD III Creatinine admission 1.9 with (baseline ~1.5) Creatinine today 1.37 Monitor BMP while on Lasix Abnormal UA urine cx positive for gram positive bacilli ( 8.000 CFU) No sensitivity to follow Asymptomatic ELISSA on CPAP CPAP HS with oxygen She was not able to tolerate the hospital CPAP and someone brought her home CPAP machine Morbid obesity BMI 55.3. Counseling on diet and exercise Diabetes mellitus, type II Most recent hemoglobin A1c 8 Continue basal/bolus insulin while admitted Continue monitor blood sugar Mood disorder Fibromyalgia Continue duloxetine, nortriptyline, gabapentin, clonazepam PRN Chronic pain Continue PRN tramadol, tylenol DVT Ppx: Eliquis Code status: FULL PCP: Pratima Admission and Anticipated Discharge Date Admission Date: July 15, 2022 Subjective Pt was seen an examined for follow up weakness and SOB Sitting in chair with no acute distress Continue to have edema in RLE and currently on 5L NC Denies any chest pain, palpitation, dizziness Review of Systems Review of Systems: All systems reviewed & are unremarkable except as noted in Subjective Physical Exam Physical Exam: General- No acute distress Head- atraumatic Eyes- PERRL, EOMI, ENT- oropharynx clear Neck- supple, no JVD Lungs- clear to auscultation Heart- regular rhythm; no murmur Abdomen- normal bowel sounds, soft, nontender Extremities- no calf tenderness, Erythema of the dorsum of the right hand at Bite site, +edema R>L Neuro- alert, oriented x 3; PERRL, EOMI; no facial palsy; no dysarthria Skin- warm & dry Results & Data Results & Data ([facility]) Vital Signs (Past 12 Hours) Vital Signs Temp Pulse Pulse Resp BP Pulse Ox O2 Del Method 07/20/22 16:01 36.7 C 85 20 128/66 94 Nasal Cannula 07/20/22 14:59 90 07/20/22 11:24 36.9 C 85 18 126/74 97 O2 Flow Rate 07/20/22 16:01 5 07/20/22 14:59 07/20/22 11:24 (1) Cat bite Encounter type: initial encounter Qualified Code(s): W55.01XA - Bitten by cat, initial encounter (2) DVT (deep venous thrombosis) Affected thrombotic vein of extremity: unspecified vein of extremity Chronicity: acute DVT location: lower extremity Laterality: right Qualified Code(s): I82.401 - Acute embolism and thrombosis of unspecified deep veins of right lower extremity
[2022-07-20] MEDS: rOPINIRole HCL 2 MG TABLET PO SCH (20:52)
[2022-07-20] MEDS: traZODone HCL 50 MG TAB PO SCH (20:52)
[2022-07-20] MEDS: NORTRIPTYLINE HCL 25 MG CAP PO SCH (20:53)
[2022-07-20] MEDS: PANTOprazole 40 MG TAB PO SCH (20:55)
[2022-07-21] MEDS: ACETAMINOPHEN 325 MG TAB PO PRN ×2 (01:25→15:59)
[2022-07-21 07:09] LABS: BUN Creatinine Ratio 14.7 (10-20); Calcium 9.1 mg/dl (8.5-10.1); Creatinine Clr Calc Pharmacy 57.1 ml/min; Est GFR (African American) 43.8 ml/min; Est GFR (Non-African American) 37.8 ml/min; Magnesium 1.8 mg/dl (1.7-2.4); Potassium 4.2 mmol/L (3.5-5.1)
[2022-07-21] MEDS: LEVOTHYROXINE SODIUM 50 MCG TABLET PO SCH (08:02)
[2022-07-21] MEDS: DULoxetine HCL 30 MG CAP PO SCH (08:02)
[2022-07-21] MEDS: DULoxetine HCL 60 MG CAP PO SCH (08:02)
[2022-07-21] MEDS: CLOTRIMAZOLE 10 MG TROCHE BUCCAL SCH ×4 (08:03→20:28)
[2022-07-21] MEDS: GABAPENTIN 300 MG CAP PO SCH ×3 (08:03→20:28)
[2022-07-21] MEDS: FUROSEMIDE 40 MG/4 ML VIAL IV SCH ×2 (08:03→17:20)
[2022-07-21] MEDS: LIDOCAINE 5% 1 PATCH TD SCH (08:03)
[2022-07-21] MEDS: LEVOTHYROXINE SODIUM 200 MCG TABLET PO SCH (08:03)
[2022-07-21] MEDS: POTASSIUM CHLORIDE CRTAB 20 MEQ TABCR PO SCH ×2 (08:03→17:17)
[2022-07-21] MEDS: AMOXICILLIN/CLAVULANATE 875 MG TAB PO SCH ×2 (08:03→20:28)
[2022-07-21] MEDS: APIXABAN 5 MG TABLET PO SCH ×2 (08:03→20:27)
[2022-07-21] MEDS: LANTUS PER UNIT CHARGE SQ SCH ×2 (09:12→20:21)
[2022-07-21] MEDS: INSULIN ASPART PER UNIT SC SCH ×4 (09:12→20:18)
--- NOTE | 2022-07-21 10:15 | Hospitalist Progress Note ---
Date of Service July 21, 2022 Assessment & Plan (1) Cat bite: (2) Multiple falls: (3) Non compliance w medication regimen: (4) Acute and chronic respiratory failure with hypoxia: (5) Chronic diastolic heart failure: (6) Hypomagnesemia: (7) DVT (deep venous thrombosis): (8) Acute on chronic kidney failure: (9) HTN (hypertension): (10) Depression with anxiety: (11) Hypothyroidism: (12) ELISSA on CPAP: Plan 67yo F with a PMH of morbid obesity, chronic diastolic heart failure, hypertensive heart disease, type 2 diabetes, recurrent DVT on Eliquis, obesity hypoventilation syndrome, chronic hypoxic respiratory failure on 2-4L NC @ baseline, ELISSA on CPAP with oxygen, RLS who presents after a fall in her apartment. Multiple falls Generalized weakness Noncompliant with medication regimen Falls at home likely exacerbated by running out of oxygen for the past 2 days. Patient requires 2 to 4 L nasal cannula oxygen at baseline due to obesity hypoventilation, ELISSA, CHF Continue PT/OT eval Fall precaution Acute on chronic diastolic heart failure Elevated troponin Likely demand ischemia given acute on chronic respiratory failure, lack of oxygen at home, CKD Troponin elevated to 162.5 on admission --> repeat 160.5 EKG showed no acute ischemic changes Cardiology on board Continue eliquis Continue IV lasix while inpatient and change to po on discharge Acute on chronic respiratory failure with hypoxia Obesity hypoventilation syndrome Saturating 99% on 6 L nasal cannula, which is more than baseline. CXR showed No definite acute abnormality is noted superimposed against this background although mild pulmonary edema cannot be entirely excluded. Continue diuretics as above Continue CPAP HS Incentive spirometry Will repeat CXR today to reassess Electrolytes imbalance Mag and potassium are within normal today Continue to monitor and replete while on diuretics Cat bite cellulitis Afebrile, no leukocytosis. Blood culture on 07/14 showed no growth Continue Augmentin to complete therapy Acute on chronic CKD III Creatinine admission 1.9 with (baseline ~1.5) Creatinine today 1.43 Monitor BMP while on Lasix Abnormal UA urine cx positive for gram positive bacilli ( 8.000 CFU) No sensitivity to follow Asymptomatic ELISSA on CPAP CPAP HS with oxygen She was not able to tolerate the hospital CPAP and someone brought her home CPAP machine which she had been using Morbid obesity BMI 55 Counseled on diet and exercise Diabetes mellitus, type II Most recent hemoglobin A1c 8 Continue basal/bolus insulin while admitted Continue monitor blood sugar Mood disorder Fibromyalgia Continue duloxetine, nortriptyline, gabapentin, clonazepam PRN Chronic pain Continue PRN tramadol, tylenol DVT Ppx: Eliquis Code status: FULL PCP: Pratima Admission and Anticipated Discharge Date Admission Date: July 15, 2022 Subjective Patient seen and examined. Patient reports shortness of breath especially with activity. Chronic intermittent cough which she attributed to postnasal drip. Denied chest pain Denied nausea, vomiting, abdominal pain, diarrhea Reports some improvement in the right leg redness. Still has mild leg swelling. Patient currently on 5 L nasal cannula. Physical Exam Constitutional: + morbidly obese; no acute distress Eyes: PERRL, conjunctivae normal, anicteric sclerae ENMT: external ear and nose normal, oropharynx normal Respiratory: normal respiratory effort; no respiratory distress Diminished breath sounds. Cardiovascular: Rate/Rhythm: regular rate and regular rhythm S1-S2 Gastrointestinal (Abdomen): normal bowel sounds, soft, nontender, no hepatosplenomegaly Musculoskeletal: Pedal edema [right more than left], erythema over right leg Neurologic: PERRL, EOMI, accommodation nl, no face palsy, no dysarthria Psychiatric: A+Ox3, euthymic affect Results & Data Results & Data ([facility]) Vital Signs (Past 12 Hours) Vital Signs Temp Pulse Pulse Resp BP BP Pulse Ox 07/21/22 08:00 07/21/22 08:06 36.5 C 80 20 164/77 H 91 07/21/22 07:23 83 07/21/22 07:00 36.5 C 81 20 155/72 H 100 07/21/22 00:00 91 H 07/21/22 03:00 36.5 C 84 20 170/69 H 92 07/20/22 22:57 36 C L 94 H 20 104/61 100 O2 Del Method O2 Flow Rate 07/21/22 08:00 Nasal Cannula 5 07/21/22 08:06 Nasal Cannula 5 07/21/22 07:23 07/21/22 07:00 Nasal Cannula 2 07/21/22 00:00 07/21/22 03:00 Nasal Cannula 2 07/20/22 22:57 CPAP Laboratory Results Abnormal lab results 07/20/22 07/20/22 07/20/22 Range/Units 11:29 16:28 20:06 Chloride (98-107) mmol/L Creatinine (0.6-1.2) mg/dl Glucose (70-99(Fasting)) mg/dl POC Glucose 185 H 134 H 137 H (70-99) mg/dl 07/21/22 07/21/22 Range/Units 05:54 07:50 Chloride 97 L (98-107) mmol/L Creatinine 1.43 H (0.6-1.2) mg/dl Glucose 181 H (70-99(Fasting)) mg/dl POC Glucose 163 H (70-99) mg/dl (1) DVT (deep venous thrombosis) Affected thrombotic vein of extremity: unspecified vein of extremity Chronicity: acute DVT location: lower extremity Laterality: right Qualified Code(s): I82.401 - Acute embolism and thrombosis of unspecified deep veins of right lower extremity (2) Cat bite Encounter type: initial encounter Qualified Code(s): W55.01XA - Bitten by cat, initial encounter
--- NOTE | 2022-07-21 11:05 | XRay Report ---
XR chest 2V PA/lateral CLINICAL HISTORY: Reassess hypoxia/SOB TECHNIQUE: 2 views of the chest were obtained. Comparison: Comparison is made to chest radiograph 07/15/2022 FINDINGS: No lines and tubes are seen. Cardiomegaly is noted. The aortic arch is calcified. Reticular interstit ial opacities are seen. No evidence of pleural effusion or pneumothorax. IMPRESSION: Redemonstration of cardiomegaly and interstitial opacities. Previously noted pulmonary edema has reso lved. ACT 112: Negative or not required by law. Electronically signed by: Mook Guido M.D. 07/21/2022 11:04 AM
[2022-07-21] MEDS: MAGNESIUM OXIDE 400 MG TAB PO SCH ×2 (12:00→17:17)
--- NOTE | 2022-07-21 12:48 | Cardiology Progress Note ---
Date of Service July 21, 2022 Assessment & Plan (1) Acute on chronic diastolic CHF (congestive heart failure): (2) Acute and chronic respiratory failure with hypoxia: (3) Elevated troponin: (4) Obesity hypoventilation syndrome: (5) ELISSA on CPAP: (6) DVT (deep venous thrombosis): (7) Non compliance w medication regimen: (8) UTI (urinary tract infection): Plan 67 year old female with acute on chronic diastolic CHF and hypoxia. Hx of DVT/PE with zoraida filter in place and chronically anticoagulated with Eliquis. Continue IV furosemide 40 twice daily. Follow daily weight, fluid balance, GFR, and electrolytes. Replace potassium and magnesium as indicated. Mild troponin elevation secondary to demand ischemia in the setting of hypoxia and volume overload. ACS unlikely. CPAP with supplemental O2 when sleeping. Patient slowly improving. Would continue IV furosemide as ordered until plans for discharge then convert to oral furosemide at 60 mg twice per day Continue oxygen and CPAP supplementation Admission and Anticipated Discharge Date Admission Date: July 15, 2022 Subjective Patient seen and examined, chart, medications, telemetry reviewed. Patient still dyspneic with activity and exertion. Has responded to diuretics by urinary output recordings less so by weight Lower extremity edema slightly improved Continues to have O2 demands with activity Has been using CPAP partially at night Notes recent COVID exposure in hospital Review of Systems Review of Systems: All systems reviewed & are unremarkable except as noted in Subjective Physical Exam Constitutional: well nourished, + morbidly obese and + obese; no acute distress Eyes: PERRL, conjunctivae normal, anicteric sclerae Neck: normal visual inspection and trachea midline Respiratory: normal respiratory effort and + cough; no respiratory distress, no labored breathing and no retractions Auscultation: + diminished lung sounds (Bilateral) and + rales; no crackles, no rhonchi and no wheezes Cardiovascular: Rate/Rhythm: regular rate and regular rhythm Heart Sounds: normal S1 and normal S2; no murmur Vessels: no JVD (Difficult to assess due to body habitus) and no carotid bruit Extremities: + edema (2+ BLLE pitting edema. R>L) Gastrointestinal (Abdomen): Inspection/Auscultation: abdomen normal to i nspection and normal bowel sounds; abdomen not distended Percussion/Palpation: abdomen soft; abdomen nontender Skin: no rashes, warm and dry + erythema (noted on right fuentes ) Neurologic: moves all extremities; no focal motor deficits Psychiatric: A+Ox3, euthymic affect Results & Data ([facility]) Vital Signs (Past 12 Hours) Vital Signs Temp Pulse Pulse Resp BP Pulse Ox O2 Del Method 07/21/22 08:00 Nasal Cannula 07/21/22 08:06 36.5 C 80 20 164/77 H 91 Nasal Cannula 07/21/22 07:23 83 07/21/22 07:00 36.5 C 81 20 155/72 H 100 Nasal Cannula 07/21/22 03:00 36.5 C 84 20 170/69 H 92 Nasal Cannula O2 Flow Rate 07/21/22 08:00 5 07/21/22 08:06 5 07/21/22 07:23 07/21/22 07:00 2 07/21/22 03:00 2 Laboratory Results Laboratory Results - last 24 hr 07/20/22 07/20/22 07/21/22 16:28 20:06 05:54 Sodium 136 Potassium 4.2 Chloride 97 L Carbon Dioxide 32 Anion Gap 7 BUN 21 Creatinine 1.43 H Est Cr Clr Drug Dosing 57.1 Est GFR ( Amer) 43.8 Est GFR (Non-Af Amer) 37.8 BUN/Creatinine Ratio 14.7 Glucose 181 H POC Glucose 134 H 137 H Calcium 9.1 Magnesium 1.8 07/21/22 07/21/22 07:50 11:55 Sodium Potassium Chloride Carbon Dioxide Anion Gap BUN Creatinine Est Cr Clr Drug Dosing Est GFR ( Amer) Est GFR (Non-Af Amer) BUN/Creatinine Ratio Glucose POC Glucose 163 H 162 H Calcium Magnesium (1) DVT (deep venous thrombosis) Affected thrombotic vein of extremity: unspecified vein of extremity Chronicity: acute DVT location: lower extremity Laterality: right Qualified Code(s): I82.401 - Acute embolism and thrombosis of unspecified deep veins of right lower extremity
[2022-07-21] MEDS: traZODone HCL 50 MG TAB PO SCH (20:27)
[2022-07-21] MEDS: NORTRIPTYLINE HCL 25 MG CAP PO SCH (20:28)
[2022-07-21] MEDS: PANTOprazole 40 MG TAB PO SCH (20:28)
[2022-07-21] MEDS: rOPINIRole HCL 2 MG TABLET PO SCH (20:29)
[2022-07-21] MEDS: CYCLOBENZAPRINE HCL 10 MG TAB PO PRN (21:34)
[2022-07-21] MEDS: traMADol HCL 50 MG TABLET PO PRN (21:34)
[2022-07-22] MEDS: ACETAMINOPHEN 325 MG TAB PO PRN (03:14)
[2022-07-22] MEDS: CLOTRIMAZOLE 10 MG TROCHE BUCCAL SCH ×3 (06:18→12:10)
[2022-07-22 07:57] LABS: Calcium 9.2 mg/dl (8.5-10.1); Creatinine Clr Calc Pharmacy 63.3 ml/min; Est GFR (African American) 49.6 ml/min; Est GFR (Non-African American) 42.8 ml/min; Magnesium 1.6 mg/dl (1.7-2.4); Phosphorus 3.3 mg/dl (2.5-4.9); Potassium 3.7 mmol/L (3.5-5.1)
[2022-07-22] MEDS: INSULIN ASPART PER UNIT SC SCH ×2 (08:25→12:10)
[2022-07-22] MEDS: DULoxetine HCL 60 MG CAP PO SCH (08:25)
[2022-07-22] MEDS: DULoxetine HCL 30 MG CAP PO SCH (08:25)
[2022-07-22] MEDS: LEVOTHYROXINE SODIUM 50 MCG TABLET PO SCH (08:25)
[2022-07-22] MEDS: LEVOTHYROXINE SODIUM 200 MCG TABLET PO SCH (08:26)
[2022-07-22] MEDS: GABAPENTIN 300 MG CAP PO SCH (08:26)
[2022-07-22] MEDS ORDERED: MAGNESIUM SULFATE / D5W 1 GM/100 ML BAG IV ONE (08:26)
[2022-07-22] MEDS: POTASSIUM CHLORIDE CRTAB 20 MEQ TABCR PO SCH (08:26)
[2022-07-22] MEDS: AMOXICILLIN/CLAVULANATE 875 MG TAB PO SCH (08:26)
[2022-07-22] MEDS: FUROSEMIDE 40 MG/4 ML VIAL IV SCH (08:27)
[2022-07-22] MEDS: LIDOCAINE 5% 1 PATCH TD SCH (08:27)
[2022-07-22] MEDS: APIXABAN 5 MG TABLET PO SCH (08:27)
[2022-07-22] MEDS: LANTUS PER UNIT CHARGE SQ SCH (08:27)
--- NOTE | 2022-07-22 11:15 | Discharge Summary ---
Discharge Summary Date of Service July 22, 2022 Notes For Next Care Provider Continue management of chronic medical problems Follow up with Cardiology Medication Changes From Visit Lasix increased to 60mg BID per [facility] Admission HPI Per Admitting Provider This is a 67yo F with a PMH of morbid obesity, chronic diastolic heart failure, hypertensive heart disease, type 2 diabetes, recurrent DVT on Eliquis, obesity hypoventilation syndrome, chronic hypoxic respiratory failure on 2-4L NC @ baseline, ELISSA on CPAP with oxygen, RLS and other medical problems listed below who presents after a fall in her apartment. Was seen in the ED yesterday after falling and imaging was done without evidence of acute traumatic injury. Had a cat bite puncture wound for which she was prescribed Augmentin but has not yet had prescription filled. Returned back to her apartment and when she stood up earlier today, she felt her legs go out from under her and she fell onto her buttocks. Denies loss of consciousness or head trauma. Has been feeling fatigued and generally weak over the past 2 days but also admits to running out of oxygen. States new supplies were delivered but she was unsure how to set things up. Is a [facility] at home patient but they have not yet visited her at her new apartment which she recently moved into. Usually requires 2 L of oxygen at rest and up to 3-4 with exertion. Continues to have chronic bilateral lower extremity pain, fatigue and pain in lower back which are all chronic and unchanged per patient. No fever, chills, headache, chest pain, nausea, vomiting, abdominal pain, dysuria, diarrhea or constipation. Does have some redness and tenderness to left hand from cat bite puncture wound. Of note, was admitted from 06/10-06/16 for decompensated heart failure with echo showing preserved EF and grade 1 diastolic dysfunction. No regional wall motion abnormalities identified. Lasix increased to 40mg BID on discharge. Admission Exam Per Admitting Provider General Appearance:WD/WN, vitals as above, NAD, lying in bed, morbidly obese Head: normocephalic, atraumatic Eyes:normal inspection, PERRL, conjunctivae normal, anicteric sclerae ENT: external ear and nose normal, oropharynx normal Neck: normal visual inspection, trachea midline, no thyromegaly Respiratory:normal respiratory effort, crackles R base, no wheeze or rhonchi. No accessory muscle use Cardiovascular: regular rate, rhythm, no murmur, normal peripheral pulses, trace BLE edema. Vessels: no JVD Chest: normal inspection of chest Abdomen/GI: normal bowel sounds, soft, nontender, no hepatosplenomegaly Extremities/Musculoskeletal: no cyanosis or clubbing, extremities motor strength 5/5 Neurologic: PERRL, EOMI, accommodation nl, no face palsy, no dysarthria, CN's II-XI intact bilaterally and moves all extremities Psychiatric:A+Ox3, euthymic affect Skin: no rashes, normal color, warm/dry. + R dorsum of hand with puncture wound and surrounding erythema, warmth. BLE with erythema and warmth but non-tender Principal Dx & Hospital Course #1 = Principal Diagnosis (1) Cat bite: (2) Multiple falls: (3) Non compliance w medication regimen: (4) Acute and chronic respiratory failure with hypoxia: (5) Chronic diastolic heart failure: (6) Hypomagnesemia: (7) DVT (deep venous thrombosis): (8) Acute on chronic kidney failure: (9) HTN (hypertension): (10) Depression with anxiety: (11) Hypothyroidism: (12) ELISSA on CPAP: Plan 67yo F with a PMH of morbid obesity, chronic diastolic heart failure, hypertensive heart disease, type 2 diabetes, recurrent DVT on Eliquis, obesity hypoventilation syndrome, chronic hypoxic respiratory failure on 2-4L NC @ baseline, ELISSA on CPAP with oxygen, RLS who presented after a fall in her apartment. Multiple falls Generalized weakness Noncompliant with medication regimen Falls at home likely exacerbated by running out of oxygen for the past 2 days prior to presentation. Patient requires 2 to 4 L nasal cannula oxygen at baseline due to obesity hypoventilation, ELISSA, CHF Continue PT/OT eval Fall precaution Acute on chronic diastolic heart failure Elevated troponin Likely demand ischemia given acute on chronic respiratory failure, lack of oxygen at home, CKD Troponin elevated to 162.5 on admission --> repeat 160.5 EKG showed no acute ischemic changes Was evaluated by [facility] inpatient and managed with IV lasix Cardiology recommends increasing lasix to 60mg BID on discharge Continue eliquis Acute on chronic respiratory failure with hypoxia Obesity hypoventilation syndrome ELISSA on CPAP Due to CHF exacerbation Oxygenation improved with diuresis Patient is back to baseline oxygen requirement today 2 step noted 2l/min oxygen at rest and 4l/min with activity Continue CPAP HS Discussed with CM who ensured patient's oxygen supplies will be delivered at home by [employer] prior to dc Electrolytes imbalance Continue po mag and potassium Cat bite cellulitis Patient completed Augmentin therapy inpatient Acute on chronic CKD III Creatinine admission 1.9 with (baseline ~1.5) Creatinine today 1.29 Morbid obesity BMI 55 Counseled on diet and exercise Diabetes mellitus, type II Most recent hemoglobin A1c 8 Continue home antidiabetics Mood disorder Fibromyalgia Continue duloxetine, nortriptyline, gabapentin, clonazepam PRN Chronic pain Continue PRN tramadol, tylenol Discharge Exam Constitutional + morbidly obese; no acute distress Eyes PERRL, conjunctivae normal, anicteric sclerae ENMT external ear and nose normal, oropharynx normal Respiratory normal respiratory effort; no respiratory distress Diminished breath sounds. no crackles Cardiovascular Rate/Rhythm: regular rate and regular rhythm S1 S2 Gastrointestinal (Abdomen) normal bowel sounds, soft, nontender, no hepatosplenomegaly Musculoskeletal +pedal edema Neurologic PERRL, EOMI, accommodation nl, no face palsy, no dysarthria Psychiatric A+Ox3, euthymic affect Updated Medication List Medication Instructions Recorded Confirmed Type levothyroxine 200 mcg tablet 200 mcg PO QAM 06/09/18 07/15/22 History omeprazole 20 mg capsule,delayed 20 mg PO HS 06/09/18 07/15/22 History release cyclobenzaprine 10 mg tablet 10 mg PO HS PRN Muscle Spasm 12/08/18 07/15/22 History duloxetine 60 mg capsule,delayed 60 mg PO QAM 12/23/18 07/15/22 History release gabapentin 300 mg capsule 300 mg PO BID 05/09/19 07/15/22 History duloxetine 30 mg capsule,delayed 30 mg PO DAILY 01/25/20 07/15/22 History release trazodone 50 mg tablet 50 mg PO HS 01/25/20 07/15/22 History tramadol 50 mg tablet 50 mg PO Q8H PRN Pain 07/19/20 07/15/22 History insulin degludec 100 unit/mL (3 60 unit subcut HS 11/24/20 07/15/22 History mL) subcutaneous pen (Tresiba FlexTouch U-100 insulin) dicyclomine 20 mg tablet 20 mg PO QID PRN abdominal pain 03/27/21 07/15/22 History docusate sodium 100 mg capsule 100 mg PO BID PRN Constipation 03/27/21 07/15/22 History (Colace) insulin aspart U-100 100 unit/mL 40 unit subcut WM 03/27/21 07/15/22 History (3 mL) subcutaneous pen (Novolog Flexpen U-100 Insulin aspart) levothyroxine 50 mcg tablet 50 mcg PO QAM 03/27/21 07/15/22 History meclizine 12.5 mg tablet 12.5 mg PO TID PRN Dizziness 03/27/21 07/15/22 History nortriptyline 50 mg capsule 50 mg PO HS 03/27/21 07/15/22 History (Pamelor) clonazepam 0.5 mg tablet 0.5 mg PO BID PRN anxiety #0 tabs 03/28/21 07/15/22 Rx ropinirole 2 mg tablet 2 mg PO HS 09/20/21 07/15/22 History dulaglutide 4.5 mg/0.5 mL 4.5 mg subcut WK 10/15/21 07/15/22 History subcutaneous pen injector (Trulicity) apixaban 5 mg (74 tabs) tablets in 5 mg PO BID 12/26/21 07/15/22 History a dose pack ([email or web address]) magnesium oxide 400 mg (241.3 mg 400 mg PO BID@1200,1800 #60 tabs 06/15/22 07/15/22 Rx magnesium) tablet clotrimazole 10 mg jimena 10 mg PO UD 07/14/22 07/15/22 History potassium chloride 20 mEq 20 meq PO BID17 07/14/22 07/15/22 History tablet,extended release(part/cryst) albuterol sulfate 90 mcg/actuation 2 inh inhalation Q4H PRN Shortness 07/15/22 07/15/22 History aerosol inhaler Of Breath Or Wheezing azelastine 137 mcg (0.1 %) nasal 1 spray intranasal AMHS 07/15/22 07/15/22 History spray aerosol metformin 500 mg tablet,extended 500 mg PO DAILY 07/15/22 07/15/22 History release 24 hr furosemide 40 mg tablet 60 mg PO BID #120 tabs 07/22/22 Rx Hospital Stay Data Consultations 07/15/22 14:05 ED Decision to Admit Stat 07/15/22 16:16 Consult Cardiology Routine Pending Results Patient Have Any Pending Studies at Discharge: No Discharge Instructions Given to Patient (Per Discharging Provider) Mrs Camp You came to the hospital after falls at home. You were evaluated and managed for the above listed diagnoses. You completed the antibiotics. You are being discharged home. Your furosemide was increased to 60mg twice a day as recommended by the [facility] [facility]. Please ensure follow up with your Primary Doctor and [facility]. Continue to use your oxygen at 2L/min at rest and 4L/min with activity. It was a pleasure taking care of you. Total Time Total Time Spent Total Time Spent (In Minutes): 50 Total Time Includes: Examination of the Patient, Discharge Planning and Medication Reconciliation
[2022-07-22] MEDS: MAGNESIUM OXIDE 400 MG TAB PO SCH (12:11)
== END 2022-07-22 13:04 | disposition home or self-care (01) | DRG 291 ==
LOC: ED 10:22 → SUATTDRO 14:32 → 2N 14:32

== ENCOUNTER 2022-07-29 04:10 | Inpatient (IN) ==
[2022-07-29] MEDS ORDERED: dexAMETHasone**PF** 10 MG/ML VIAL IV ONE (04:23)
[2022-07-29] MEDS ORDERED: ACETAMINOPHEN 1,000 MG/100 ML VIAL IV STA (04:23)
--- NOTE | 2022-07-29 04:30 | Emergency Department Note ---
History of Present Illness General Chief complaint: Shortness of Breath/Dyspnea Time Seen by Provider: 07/29/22 04:18 History of Present Illness This 67-year-old chronically on oxygen presents to the ER complaining of COVID who is hypoxic Location: Generalized Quality: Weak Severity: Moderate Duration: Past day Timing: Started yesterday Context: Patient had problems breathing and came in Modifying factors: better with rest; worse with activity Patient states that her other family members have COVID. She has a fever and feels short of breath. EMS states her sats were in the 50s when they arrived. She is normally on 4 L. Patient denies chest pain, abdominal pain, vomiting, diarrhea. No change in her weights per patient. Home Medications Medication Instructions Recorded Confirmed Type levothyroxine 200 mcg tablet 200 mcg PO QAM 06/09/18 07/15/22 History omeprazole 20 mg capsule,delayed 20 mg PO HS 06/09/18 07/15/22 History release cyclobenzaprine 10 mg tablet 10 mg PO HS PRN Muscle Spasm 12/08/18 07/15/22 History duloxetine 60 mg capsule,delayed 60 mg PO QAM 12/23/18 07/15/22 History release gabapentin 300 mg capsule 300 mg PO BID 05/09/19 07/15/22 History duloxetine 30 mg capsule,delayed 30 mg PO DAILY 01/25/20 07/15/22 History release trazodone 50 mg tablet 50 mg PO HS 01/25/20 07/15/22 History insulin degludec 100 unit/mL (3 60 unit subcut HS 11/24/20 07/15/22 History mL) subcutaneous pen (Tresiba FlexTouch U-100 insulin) dicyclomine 20 mg tablet 20 mg PO QID PRN abdominal pain 03/27/21 07/15/22 History docusate sodium 100 mg capsule 100 mg PO BID PRN Constipation 03/27/21 07/15/22 History (Colace) insulin aspart U-100 100 unit/mL 40 unit subcut WM 03/27/21 07/15/22 History (3 mL) subcutaneous pen (Novolog Flexpen U-100 Insulin aspart) levothyroxine 50 mcg tablet 50 mcg PO QAM 03/27/21 07/15/22 History meclizine 12.5 mg tablet 12.5 mg PO TID PRN Dizziness 03/27/21 07/15/22 History nortriptyline 50 mg capsule 50 mg PO HS 03/27/21 07/15/22 History (Pamelor) clonazepam 0.5 mg tablet 0.5 mg PO BID PRN anxiety #0 tabs 03/28/21 07/15/22 Rx ropinirole 2 mg tablet 2 mg PO HS 09/20/21 07/15/22 History dulaglutide 4.5 mg/0.5 mL 4.5 mg subcut WK 10/15/21 07/15/22 History subcutaneous pen injector (Trulicity) apixaban 5 mg (74 tabs) tablets in 5 mg PO BID 12/26/21 07/15/22 History a dose pack (Eliquis) magnesium oxide 400 mg (241.3 mg 400 mg PO BID@1200,1800 #60 tabs 06/15/22 07/15/22 Rx magnesium) tablet potassium chloride 20 mEq 20 meq PO BID17 07/14/22 07/15/22 History tablet,extended release(part/cryst) albuterol sulfate 90 mcg/actuation 2 inh inhalation Q4H PRN Shortness 07/15/22 07/15/22 History aerosol inhaler Of Breath Or Wheezing metformin 500 mg tablet,extended 500 mg PO DAILY 07/15/22 07/15/22 History release 24 hr furosemide 40 mg tablet 60 mg PO BID #120 tabs 07/22/22 Rx oxycodone-acetaminophen 5 mg-325 1 tab PO Q12H PRN Pain 07/29/22 07/29/22 History mg tablet Allergies Allergy/AdvReac Type Severity Reaction Status Date / Time morphine Allergy Severe VIOLENT Verified 12/26/21 00:54 REACTION-"ALMOST " SWELLING tetanus toxoid, adsorbed Allergy Intermediate PASSED OUT Verified 12/26/21 00:54 AND GOT SICK WHEN A CHILD bupropion [From Wellbutrin] AdvReac Intermediate Recurrent Verified 12/26/21 00:54 falls as per patient codeine AdvReac Intermediate Hallucinati Verified 12/26/21 00:54 ons empagliflozin AdvReac Intermediate YEAST Verified 12/26/21 00:54 [From Jardiance] INFECTIONS heparin AdvReac Intermediate HIT; FLUID Verified 12/26/21 00:54 IN LUNGS hydrocodone [From Vicodin] AdvReac Intermediate sleepiness Verified 12/26/21 00:54 Past Med/Surg History Medical History Carotid stenosis, right CKD (chronic kidney disease), stage III Depression with anxiety Diabetes Diabetes mellitus, type II Fibromyalgia GERD (gastroesophageal reflux disease) History of DVT (deep vein thrombosis) History of pulmonary embolism s/p zoraida filter HIT (heparin-induced thrombocytopenia) HLD (hyperlipidemia) HTN (hypertension) Hypothyroidism Morbid obesity ELISSA on CPAP Presence of IVC filter RLS (restless legs syndrome) Sepsis Subclavian artery stenosis Surgical History History of cholecystectomy History of colon resection secondary to R colon perforation, resected treated with colostomy and eventual reversal in 2008, Dr. Lerma History of thyroidectomy, total History of total right knee replacement History of tracheostomy 2010, secondary to acute resp failure secondary to pneumonia, transferred to [facility] Family History Father , age 74 Lung cancer Mother , age 45 Cirrhosis Social History Smoking Status: Former smoker Tobacco Type: Cigarettes Cigarettes Per Day: 15 pack year hx; Second Hand Exposure: No; Hx Alcohol Use: No Hx Substance Use: No Preferred Language: Georgian Communication Ability: Effective Office Rental Clerk Required: No Beliefs That Will Affect Care: None marital status: Single Current Living Situation: Alone How many Children do You have: 0 Other Information That Helps Us Care for You: No Feels Safe at Home: Yes Safety Concerns: Feels Safe At This Time Assistive Devices: Walker Review of Systems A total of 10 systems reviewed and were otherwise negative Physical Exam Vital Signs Vital Signs - 24 hr 07/29/22 04:34 07/29/22 04:34 07/29/22 05:41 Temperature 37.9 C H Temperature Source Oral Pulse Rate 107 H 105 H Pulse Rate [Apical] Pulse Rhythm Regular Regular Pulse Rhythm [Apical] Pulse Strength Normal Pulse Strength [Apical] Respiratory Rate 24 24 Respiratory Effort / Characteristics Short of Breath SOB on Exertion Short of Breath SOB on Exertion Respiratory Depth Normal Normal Respiratory Pattern Tachypnea Tachypnea Blood Pressure 127/82 Blood Pressure [Left Arm] Blood Pressure Mean 97 Blood Pressure Mean [Left Arm] Blood Pressure Position Semi-fowlers Blood Pressure Position [Left Arm] Pulse Oximetry 90 89 L Oxygen Delivery Method Nasal Cannula Nasal Cannula Nasal Cannula Oxygen Flow Rate 4 4 4 Sepsis Recent Fever Within 48 Hours Yes Sepsis New/Unexplained Change in Mental Status No Sepsis Action Taken by Nursing Physician Notified 07/29/22 05:41 07/29/22 06:08 Temperature Temperature Source Pulse Rate Pulse Rate [Apical] 99 H Pulse Rhythm Pulse Rhythm [Apical] Regular Pulse Strength Pulse Strength [Apical] Normal Respiratory Rate 18 Respiratory Effort / Characteristics Non-Labored Spontaneous Respiratory Depth Normal Respiratory Pattern Regular Blood Pressure Blood Pressure [Left Arm] 135/60 Blood Pressure Mean Blood Pressure Mean [Left Arm] 85 Blood Pressure Position Blood Pressure Position [Left Arm] Semi-fowlers Pulse Oximetry 90 100 Oxygen Delivery Method Nasal Cannula Nebulizer Oxygen Flow Rate 4 7 Sepsis Recent Fever Within 48 Hours Sepsis New/Unexplained Change in Mental Status Sepsis Action Taken by Nursing VITALS: Vitals are noted on the nurse's note and reviewed by myself. Vital signs febrile. GENERAL: Pleasant female speaking in full sentences on a facemask, in no acute distress, nondiaphoretic, well-developed well-nourished. SKIN: The skin was without rashes, erythema, edema, or bruising. There is no tenting of the skin. Capillary reflex less than 2 seconds. HEAD: Normocephalic atraumatic. EARS: External auditory canals clear, EYES: Pupils equal round and reactive to light and accommodation. Conjunctivae without injection, sclerae without icterus. Extraocular movements intact. NOSE: Patent, turbinates without inflammation or discharge. MOUTH: Mucous membranes moist. Pharynx without erythema or exudate. Uvula midline. Airway patent. Tongue does not deviate. NECK: Supple without nuchal rigidity. No lymphadenopathy. No thyromegaly. Cervical spine is nontender. No JVD. HEART: Regular rate and rhythm LUNGS: Mild diffuse end expiratory wheezes, bibasilar rales. No retractions or accessory muscle use. ABDOMEN: Positive bowel sounds x 4. Normal tympanic percussion. Soft, nontender, without masses or organomegaly. Bird sign negative. No guarding or rebound tenderness. No CVA tenderness MUSCULOSKELETAL: No muscle atrophy, erythema, noted. NEURO: Patient was alert and oriented to person place and time. Normal sensation to light and sharp touch. No focal neurological deficits. Course Administered Medications Acetaminophen (Acetaminophen 325 Mg Tab) 650 mg PO Q6H PRN PRN Reason: Fever/pain Stop: 08/28/22 08:42 Last Admin: 07/29/22 13:42 Dose: 650 mg Documented By: CARTER Apixaban (Apixaban 5 Mg Tablet) 5 mg PO BID [facility] Stop: 08/28/22 08:59 Last Admin: 07/29/22 20:02 Dose: 5 mg Documented By: Admin: 07/29/22 11:31 Dose: 5 mg Documented By: CARTER Doxycycline Hyclate (Doxycycline Hyclate 100 Mg Cap) 100 mg PO BID [facility]; Protocol Stop: 08/05/22 20:59 Last Admin: 07/29/22 20:02 Dose: 100 mg Documented By: CELESTINO Duloxetine HCl (Duloxetine Hcl 30 Mg Cap) 30 mg PO DAILY [facility] Stop: 08/28/22 08:59 Last Admin: 07/29/22 11:31 Dose: 30 mg Documented By: CARTER Duloxetine HCl (Duloxetine Hcl 60 Mg Cap) 60 mg PO QAM [facility] Stop: 08/28/22 08:59 Last Admin: 07/29/22 11:31 Dose: 60 mg Documented By: CARTER Gabapentin (Gabapentin 300 Mg Cap) 300 mg PO BID [facility] Stop: 08/28/22 08:59 Last Admin: 07/29/22 20:03 Dose: 300 mg Documented By: Admin: 07/29/22 11:31 Dose: 300 mg Documented By: CARTER Cefepime HCl 2,000 mg/ Syringe 20 mls @ 5 mls/min IV Q12H [facility]; Protocol Stop: 08/05/22 18:59 Last Admin: 07/29/22 19:36 Dose: Not Given Documented By: CELESTINO Insulin Aspart (Insulin Aspart Per Unit) 0 units SC ACHS [facility] Stop: 08/28/22 08:42 Last Admin: 07/29/22 21:33 Dose: 7 units Documented By: HORTENCIA Co-signed By: CHELE Admin: 07/29/22 18:39 Dose: 11 units Documented By: CELESTINO Co-signed By: OTONIEL Admin: 07/29/22 11:51 Dose: 8 units Documented By: CARTER Co-signed By: CELESTINO Admin: 07/29/22 10:32 Dose: 5 units Documented By: ABHINAV Co-signed By: OTONIEL Insulin Glargine (Lantus Per Unit Charge) 55 units SQ [facility] Stop: 08/28/22 19:14 Last Admin: 07/29/22 19:30 Dose: 55 units Documented By: CELESTINO Co-signed By: Levothyroxine Sodium (Levothyroxine Sodium 200 Mcg Tablet) [facility] Stop: 08/28/22 08:59 Last Admin: 07/29/22 11:31 Dose: 200 mcg Documented By: CARTER Levothyroxine Sodium (Levothyroxine Sodium 50 Mcg Tablet) [facility] Stop: 08/28/22 08:59 Last Admin: 07/29/22 11:31 Dose: 50 mcg Documented By: CARTER Nortriptyline HCl (Nortriptyline Hcl 25 Mg Cap) 50 mg PO [facility] Stop: 08/28/22 20:59 Last Admin: 07/29/22 20:02 Dose: 50 mg Documented By: CELESTINO Pantoprazole Sodium (Pantoprazole 40 Mg Tab) 40 mg PO [facility] Stop: 08/28/22 20:59 Last Admin: 07/29/22 20:05 Dose: 40 mg Documented By: CELESTINO Ropinirole HCl (Ropinirole Hcl 2 Mg Tablet) 2 mg PO [facility] Stop: 08/28/22 20:59 Last Admin: 07/29/22 20:02 Dose: 2 mg Documented By: CELESTINO Trazodone HCl (Trazodone Hcl 50 Mg Tab) 50 mg PO [facility] Stop: 08/28/22 20:59 Last Admin: 07/29/22 20:02 Dose: 50 mg Documented By: CELESTINO Discontinued Medications Albuterol (Albut/Ipratrop 3mg/0.5mg Neb 3 Ml Vial) 3 ml NEB NOW STA; Protocol Stop: 07/29/22 04:40 Last Admin: 07/29/22 06:00 Dose: 3 ml Documented By: ESTHELA Cefepime HCl (Cefepime 2,000 Mg/20 Ml Vial) Confirm Administered Dose 2,000 mg .ROUTE .STK-MED ONE Stop: 07/29/22 19:28 Last Admin: 07/29/22 19:30 Dose: 2,000 mg Documented By: CELESTINO Dexamethasone Sodium Phosphate (DexamethasonePf 10 Mg/Ml Vial) 6 mg IV NOW ONE Stop: 07/29/22 04:24 Last Admin: 07/29/22 05:56 Dose: 6 mg Documented By: ESTHELA Acetaminophen (Ofirmev) 1,000 mg in 100 mls @ 400 mls/hr IV NOW STA Stop: 07/29/22 04:37 Last Infusion: 07/29/22 06:21 Dose: 0 mls/hr Documented By: Admin: 07/29/22 06:04 Dose: 400 mls/hr Documented By: ESTHELA Doxycycline Hyclate 100 mg/ (Dextrose) 110 mls @ 50 mls/hr IV NOW STA Stop: 07/29/22 07:51 Last Infusion: 07/29/22 08:27 Dose: 0 mls/hr Documented By: Admin: 07/29/22 06:22 Dose: 50 mls/hr Documented By: ESTHELA Ceftriaxone Sodium (Rocephin) 2,000 mg in 70 mls @ 140 mls/hr IV NOW STA Stop: 07/29/22 06:45 Last Admin: 07/29/22 08:39 Dose: Not Given Documented By: ABHINAV Magnesium Sulfate/Dextrose (Magnesium Sulfate / D5w) 1 gm in 100 mls @ 100 mls/hr IV Q1H [facility] Stop: 07/29/22 08:19 Last Infusion: 07/29/22 09:51 Dose: 0 mls/hr Documented By: Admin: 07/29/22 08:26 Dose: 100 mls/hr Documented By: Infusion: 07/29/22 08:09 Dose: 100 mls/hr Documented By: Admin: 07/29/22 07:09 Dose: 100 mls/hr Documented By: ESTHELA Cefepime HCl (Maxipime) 2,000 mg in 20 mls @ 5 mls/min IV NOW STA; Protocol Stop: 07/29/22 06:23 Last Admin: 07/29/22 06:34 Dose: 5 mls/min Documented By: ESTHELA Albumin Human (Albumin 25% 100 Ml) 25 gm in 100 mls @ 50 mls/hr IV ONE ONE Stop: 07/29/22 08:30 Last Infusion: 07/29/22 11:02 Dose: 0 mls/hr Documented By: Admin: 07/29/22 08:32 Dose: 50 mls/hr Documented By: ABHINAV Oxycodone HCl (Oxycodone Hcl Ir 5 Mg Tab (Immediate Release)) 5 mg PO NOW STA Stop: 07/29/22 06:56 Last Admin: 07/29/22 08:27 Dose: 5 mg Documented By: MT Medical Decision Making Medical Records Attestation: I reviewed the patient's medical records. Home Medications Current Medication List: was personally reviewed by me Laboratory Data Attestation: I reviewed the patient's lab results. Result diagrams: 07/29/22 05:10 07/29/22 05:10 Lab Results 07/29/22 07/29/22 07/29/22 Range/Units 05:10 05:10 05:10 WBC 10.55 (4.8-10.8) K/ul RBC 4.28 (3.93-5.22) M/uL Hgb 12.8 (12.0-16.0) g/dl Hct 41.9 (34.1-44.9) % MCV 97.9 (80.0-100.0) fL MCH 29.9 (25.0-34.0) pg MCHC 30.5 L (32.0-36.0) g/dL RDW Std Deviation 54.7 H (36.4-46.3) fL RDW Coeff of Adolfo 15.3 H (11.5-14.5) % Plt Count 355 (130-400) K/uL MPV 9.9 (9.4-12.3) fL Immature Gran % (Auto) 0.9 % Neut % (Auto) 75.1 % Lymph % (Auto) 13.9 % [place] % (Auto) 5.4 % Eos % (Auto) 4.0 % Baso % (Auto) 0.7 % Neut # (Auto) 7.92 H (1.4-6.5) K/uL Lymph # (Auto) 1.47 (1.2-3.4) K/uL [place] # (Auto) 0.57 (0.24-0.82) K/uL Eos # (Auto) 0.42 (0-0.50) K/uL Baso # (Auto) 0.07 (0-0.2) K/uL Immature Gran # (Auto) 0.10 H (0.00-0.02) K/uL APTT (21.0-31.0) Seconds PTT Ratio ABG pH (7.35-7.45) ABG pCO2 (35-46) mmHg ABG pO2 (80-95) mmHg ABG HCO3 (19-24) mmol/L ABG O2 Saturation (90-95) % ABG Base Excess (-9-1.8) mEq/L Robert Test (Pos) Oxygen Given Sodium 139 (136-145) mmol/L Potassium 3.9 (3.5-5.1) mmol/L Chloride 96 L (98-107) mmol/L Carbon Dioxide 35 H (21-32) mmol/L Anion Gap 8 (3-11) BUN 24 H (6-23) mg/dl Creatinine 1.76 H (0.6-1.2) mg/dl Est Cr Clr Drug Dosing 46.5 ml/min Est GFR ( Amer) 34.1 ml/min Est GFR (Non-Af Amer) 29.4 ml/min BUN/Creatinine Ratio 13.6 (10-20) Glucose 146 H (70-99(Fasting)) mg/dl Lactate 1.5 (0.4-2.0) mmol/L Calcium 9.1 (8.5-10.1) mg/dl Magnesium 1.6 L (1.7-2.4) mg/dl Total Bilirubin 0.5 (0.2-1.0) mg/dl Direct Bilirubin 0.1 (0-0.2) mg/dl AST 16 (13-39) U/L ALT 12 (7-52) U/L Alkaline Phosphatase 67 (34-104) U/L Troponin I High Sens 53.6 H* D (0-14) pg/ml B-Natriuretic Peptide (0-100) pg/ml Total Protein 7.6 (6.0-8.3) gm/dl Albumin 4.0 (3.4-5.0) gm/dl Procalcitonin (0-0.5) ng/ml Urine Color Urine Appearance (Clear) Urine pH (4.5-7.5) Ur Specific [place] (1.000-1.030) Urine Protein (Negative) Urine Glucose (UA) (Negative) Urine Ketones (Negative) Urine Blood (Negative) Urine Nitrite (Negative) Urine Bilirubin (Negative) Urine Urobilinogen (Negative) Ur Leukocyte Esterase (Negative) Urine WBC (Auto) (0-5) /hpf Urine RBC (Auto) (0-4) /hpf U Hyaline Cast (Auto) (0-5) /lpf U Epithel Cells (Auto) (0-5) /lpf Urine Bacteria (Auto) (Negative) SARS-CoV-2 (PCR) (Negative) Influenza Type A (PCR) (Neg) Influenza Type B (PCR) (Neg) RSV (RT-PCR) (Neg) 07/29/22 07/29/22 07/29/22 Range/Units 05:10 05:10 05:10 WBC (4.8-10.8) K/ul RBC (3.93-5.22) M/uL Hgb (12.0-16.0) g/dl Hct (34.1-44.9) % MCV (80.0-100.0) fL MCH (25.0-34.0) pg MCHC (32.0-36.0) g/dL RDW Std Deviation (36.4-46.3) fL RDW Coeff of Adolfo (11.5-14.5) % Plt Count (130-400) K/uL MPV (9.4-12.3) fL Immature Gran % (Auto) % Neut % (Auto) % Lymph % (Auto) % [place] % (Auto) % Eos % (Auto) % Baso % (Auto) % Neut # (Auto) (1.4-6.5) K/uL Lymph # (Auto) (1.2-3.4) K/uL [place] # (Auto) (0.24-0.82) K/uL Eos # (Auto) (0-0.50) K/uL Baso # (Auto) (0-0.2) K/uL Immature Gran # (Auto) (0.00-0.02) K/uL APTT 27.1 (21.0-31.0) Seconds PTT Ratio 1.0 ABG pH (7.35-7.45) ABG pCO2 (35-46) mmHg ABG pO2 (80-95) mmHg ABG HCO3 (19-24) mmol/L ABG O2 Saturation (90-95) % ABG Base Excess (-9-1.8) mEq/L Robert Test (Pos) Oxygen Given Sodium (136-145) mmol/L Potassium (3.5-5.1) mmol/L Chloride (98-107) mmol/L Carbon Dioxide (21-32) mmol/L Anion Gap (3-11) BUN (6-23) mg/dl Creatinine (0.6-1.2) mg/dl Est Cr Clr Drug Dosing ml/min Est GFR ( Amer) ml/min Est GFR (Non-Af Amer) ml/min BUN/Creatinine Ratio (10-20) Glucose (70-99(Fasting)) mg/dl Lactate (0.4-2.0) mmol/L Calcium (8.5-10.1) mg/dl Magnesium (1.7-2.4) mg/dl Total Bilirubin (0.2-1.0) mg/dl Direct Bilirubin (0-0.2) mg/dl AST (13-39) U/L ALT (7-52) U/L Alkaline Phosphatase (34-104) U/L Troponin I High Sens (0-14) pg/ml B-Natriuretic Peptide 72 (0-100) pg/ml Total Protein (6.0-8.3) gm/dl Albumin (3.4-5.0) gm/dl Procalcitonin < 0.05 (0-0.5) ng/ml Urine Color Urine Appearance (Clear) Urine pH (4.5-7.5) Ur Specific [place] (1.000-1.030) Urine Protein (Negative) Urine Glucose (UA) (Negative) Urine Ketones (Negative) Urine Blood (Negative) Urine Nitrite (Negative) Urine Bilirubin (Negative) Urine Urobilinogen (Negative) Ur Leukocyte Esterase (Negative) Urine WBC (Auto) (0-5) /hpf Urine RBC (Auto) (0-4) /hpf U Hyaline Cast (Auto) (0-5) /lpf U Epithel Cells (Auto) (0-5) /lpf Urine Bacteria (Auto) (Negative) SARS-CoV-2 (PCR) (Negative) Influenza Type A (PCR) (Neg) Influenza Type B (PCR) (Neg) RSV (RT-PCR) (Neg) 07/29/22 07/29/22 07/29/22 Range/Units 05:17 05:22 05:44 WBC (4.8-10.8) K/ul RBC (3.93-5.22) M/uL Hgb (12.0-16.0) g/dl Hct (34.1-44.9) % MCV (80.0-100.0) fL MCH (25.0-34.0) pg MCHC (32.0-36.0) g/dL RDW Std Deviation (36.4-46.3) fL RDW Coeff of Daolfo (11.5-14.5) % Plt Count (130-400) K/uL MPV (9.4-12.3) fL Immature Gran % (Auto) % Neut % (Auto) % Lymph % (Auto) % [place] % (Auto) % Eos % (Auto) % Baso % (Auto) % Neut # (Auto) (1.4-6.5) K/uL Lymph # (Auto) (1.2-3.4) K/uL [place] # (Auto) (0.24-0.82) K/uL Eos # (Auto) (0-0.50) K/uL Baso # (Auto) (0-0.2) K/uL Immature Gran # (Auto) (0.00-0.02) K/uL APTT (21.0-31.0) Seconds PTT Ratio ABG pH 7.45 (7.35-7.45) ABG pCO2 51 H (35-46) mmHg ABG pO2 115 H (80-95) mmHg ABG HCO3 35 H (19-24) mmol/L ABG O2 Saturation 98.5 H (90-95) % ABG Base Excess 9.7 H (-9-1.8) mEq/L Robert Test Pos (Pos) Oxygen Given 4L Sodium (136-145) mmol/L Potassium (3.5-5.1) mmol/L Chloride (98-107) mmol/L Carbon Dioxide (21-32) mmol/L Anion Gap (3-11) BUN (6-23) mg/dl Creatinine (0.6-1.2) mg/dl Est Cr Clr Drug Dosing ml/min Est GFR ( Amer) ml/min Est GFR (Non-Af Amer) ml/min BUN/Creatinine Ratio (10-20) Glucose (70-99(Fasting)) mg/dl Lactate (0.4-2.0) mmol/L Calcium (8.5-10.1) mg/dl Magnesium (1.7-2.4) mg/dl Total Bilirubin (0.2-1.0) mg/dl Direct Bilirubin (0-0.2) mg/dl AST (13-39) U/L ALT (7-52) U/L Alkaline Phosphatase (34-104) U/L Troponin I High Sens (0-14) pg/ml B-Natriuretic Peptide (0-100) pg/ml Total Protein (6.0-8.3) gm/dl Albumin (3.4-5.0) gm/dl Procalcitonin (0-0.5) ng/ml Urine Color Yellow Urine Appearance Turbid A (Clear) Urine pH 6.5 (4.5-7.5) Ur Specific [place] 1.011 (1.000-1.030) Urine Protein Trace H (Negative) Urine Glucose (UA) Negative (Negative) Urine Ketones Negative (Negative) Urine Blood 1+ H (Negative) Urine Nitrite Positive A (Negative) Urine Bilirubin Negative (Negative) Urine Urobilinogen Negative (Negative) Ur Leukocyte Esterase 3+ H (Negative) Urine WBC (Auto) >30 H (0-5) /hpf Urine RBC (Auto) 5-10 H (0-4) /hpf U Hyaline Cast (Auto) 0 (0-5) /lpf U Epithel Cells (Auto) 5-10 H (0-5) /lpf Urine Bacteria (Auto) 4+ H (Negative) SARS-CoV-2 (PCR) NEGATIVE (Negative) Influenza Type A (PCR) Negative (Neg) Influenza Type B (PCR) Negative (Neg) RSV (RT-PCR) Negative (Neg) Imaging Data Attestation: I personally reviewed and interpreted this imaging study as follows: MDM Narrative Prior records/ancillary studies reviewed. Triage Nursing notes reviewed. Additional history obtained from EMS. The patient's history was concerning for fever. Differential diagnosis: Etiologies such as viral syndrome, otitis, pharyngitis, pneumonia, influenza, meningitis, urinary tract infection, sepsis, bacteremia, as well as others were entertained. Physical examination: As above ER treatment provided: An order was placed for continuous cardiac monitoring. The monitor shows a rate of 60-1 50 with a sinus rhythm. Nebulizer, steroid, Rocephin On reassessment the patient felt better. Diagnostics interpreted by me: ECG: Ordered for dyspnea EKG: Poor baseline, normal sinus, low voltage, no acute ST-T wave changes. Impression sinus tachycardia of 107 interpreted by myself I think arrhythmia is unlikely. EKG shows normal sinus rhythm with no interval abnormalities such as QT prolongation or WPW. There are no findings to suggest Brugada syndrome. Cardiac monitoring in the emergency department reveals no tachycardic or bradycardic dysrhythmia. Hypertrophic cardiomyopathy was considered but there are no clear historical elements pointing toward this. EKG is not suggestive. The QRS voltage is not extremely large and there are no suggestive Q waves. The labs revealed urine concerning for infection and sent for culture. [address] [place] [address] / Director: Ricardo Caldera M.D. Clinical Laboratory Report Name: GEENA MAC Antione Acct: [id number] Status: DIS IN : 1955 [facility] Date: 06/10/22 Age: 67 Sex: F Dis Date: 06/15/22 Loc: Telemetry [address] [place] [address]/Bed: [facility] Spec: [id number] Collected: 06/10/22 Received: 06/10/22 [facility] Dr: Bright Rodriguez, DO Source: Urine,Clean Catch OV Order: Ordered: Urine Culture Procedure Result Verified Site Urine Culture Final 06/12/22-1015 Organism 1 Escherichia coli [place] Count >100,000 CFU/ml Sens Sensitivities to Follow E coli RX M.I.C. --- --------- Amox/Clav S <=8/4 Ampicillin S <=8 Amp/Sul S <=8/4 Cefazolin S <=2 Cefepime S <=2 Ceftriaxone S <=1 Ciprofloxacin S <=0.25 Ertapenem S <=0.5 Gentamicin S <=4 Levofloxacin S <=0.5 Meropenem S <=1 Nitrofurantoin S <=32 Tobramycin S <=4 Trimeth/Sulfa S <=2/38 Pip/Tazo S <=16 S = SENSITIVE I = INTERMEDIATE R = RESISTANT No worrisome leukocytosis Imaging studies:Chest x-ray concerning for CHF per my interpretation Consultation: A consultation was placed with hospitalist. The case was discussed and diagnostics were reviewed. The patient was evaluated in the ER for further tr eatment. This appears to be consistent with concerns for COVID with a false negative or possibly pneumonia who was hypoxic with CHF With UTI. Patient's O2 sats were low. She improved on facemask. She is declining BiPAP. Medicine was consulted. Patient was given antibiotics for Also pneumonia and UTI and prior urine culture was reviewed. She will be evaluated for admission. By the evaluation outlined above emergent etiologies such as otitis, pharyngitis, meningitis, as well as others were deemed relatively unlikely. The pt informed about the findings as listed above. All questions were answered and pleased with the treatment. The chart was completed utilizing [employer] Speech voice recognition software. Grammatical errors, random word insertions, pronoun errors, and incomplete sentences are an occassional consequence of this system due to software limitations, ambient noise, and hardware issues. Any formal questions or concerns about the content, text, or information contained within the body of this dictation should be directly addressed to the physician music assistant for clarification. Impression & Plan Acute on chronic diastolic CHF (congestive heart failure), Hypoxemia, UTI (urinary tract infection), Elevated troponin, Hypomagnesemia, Fever, Pneumonia Discharge Plan Visit Data Chief Complaint: Shortness of Breath/Dyspnea ED Provider: Marleny Lockwood ED Midlevel Provider: Mariam Capellan Discharge Problem: Acute on chronic diastolic CHF (congestive heart failure), Hypoxemia, UTI (urinary tract infection), Elevated troponin, Hypomagnesemia, Fever, Pneumonia Patient Disposition: Admitted As Inpatient Condition: Fair Discharge Instructions Interventions: ED Discharge Assessment Last Done: 07/29/22 08:42
[2022-07-29] MEDS ORDERED: ALBUT/IPRATROP 3MG/0.5MG NEB 3 ML VIAL NEB STA (04:39)
[2022-07-29] MEDS ORDERED: DOXYCYCLINE HYCLATE 100 MG in DEXTROSE 5% 100 ML IV STA (05:40)
[2022-07-29 05:42] LABS: Basophils # (auto) 0.07 K/uL (0-0.2); Basophils % (auto) 0.7 %; Eosinophils # (auto) 0.42 K/uL (0-0.50); Hematocrit (blood only) 41.9 % (34.1-44.9); Hemoglobin 12.8 g/dl (12.0-16.0); Immature Granulocytes % (auto) 0.9 %; Lymphocytes # (auto) 1.47 K/uL (1.2-3.4); Lymphocytes % (auto) 13.9 %; Mean Corpuscular Hemoglobin 29.9 pg (25.0-34.0); Mean Corpuscular Hgb Conc 30.5 g/dL (32.0-36.0); Mean Corpuscular Volume 97.9 fL (80.0-100.0); Mean Platelet Volume 9.9 fL (9.4-12.3); Monocytes # (auto) 0.57 K/uL (0.24-0.82); Monocytes % (auto) 5.4 %; Neutrophils # (auto) 7.92 K/uL (1.4-6.5); Neutrophils % (auto) 75.1 %; Platelet Count 355 K/uL (130-400); RDW Coefficient of Variation 15.3 % (11.5-14.5); RDW Standard Deviation 54.7 fL (36.4-46.3); Red Blood Count 4.28 M/uL (3.93-5.22); White Blood Count 10.55 K/ul (4.8-10.8)
[2022-07-29 05:49] LABS: Base Excess ABG 9.7 mEq/L (-9-1.8); HCO3 ABG 35 mmol/L (19-24); Oxygen Saturation ABG 98.5 % (90-95); PCO2 ABG 51 mmHg (35-46); PO2 ABG 115 mmHg (80-95); pH ABG 7.45 (7.35-7.45)
[2022-07-29 05:53] LABS: Appearance Urine Turbid (Clear); Bacteria Urine Automated 4+ (Negative); Bilirubin Urine Negative (Negative); Blood Urine 1+ (Negative); Cast Urine Automated 0 /lpf (0-5); Color Urine Yellow; Glucose Urine UA Negative (Negative); Ketones Urine Negative (Negative); Leukocyte Esterase Urine 3+ (Negative); Nitrite Urine Positive (Negative); Protein Urine Trace (Negative); Specific Gravity Urine 1.011 (1.000-1.030); Urobilinogen Urine Negative (Negative); WBC Urine Automated >30 /hpf (0-5); pH Urine 6.5 (4.5-7.5)
[2022-07-29 05:59] LABS: Partial Thromboplastin Time 27.1 Seconds (21.0-31.0)
--- NOTE | 2022-07-29 06:06 | History & Physical Report ---
Date of Service July 29, 2022 Assessment & Plan (1) Acute and chronic respiratory failure with hypoxia: Plan: hx chronic respiratory failure secondary to possible interstitial lung disease on home O2, OHS on CPAP HCAP/possible COVID-19 pneumonia with superimposed bacterial infection, hx COVID 19 exposure at home as per patient account/recent confinement, possible sepsis Initial COVID 19 test negative Complicated UTI, possible sepsis ARF on CKD secondary to illness Troponin elevation secondary to sepsis in the setting of kidney dysfunction chronic diastolic heart failure, equivocal volume status some congestion on CXR, patient seems intravascularly dry hx PVD hypertension, stable hyperlipidemia, hx statin intolerance DM2 insulin requiring, reasonable control as of recent hemoglobin A1c of 8 last July 24 2 history PE DVT status post IVC filter placement on Eliquis hx heparin-induced thrombocytopenia hypothyroidism, euthyroid as of last month's TSH History of fibromyalgia/RLS past tobacco abuse Medical telemetry Supplemental O2 CS, Cefepime, doxycycline for pulmonary infection, Cefepime for UTI COVID-19 precautions for now Repeat COVID-19 test after 24 hours Decadron, Remdesivir course if subsequent COVID-19 test positive Pulmonary consult if without improvement Monitor creatinine response to IV albumin, hold home diuretics for now, resume diuretic Rx once patient euvolemic/creatinine back to baseline Follow troponin Basal bolus insulin, ISS BG goal 1 10-1 40, carb count coverage DVT prophylaxis. [employer] Full code Text document was generated using [employer] voice recognition software. It may contain grammatical or spelling errors. Kindly contact undersigned for clarification of any documentation item in question. History of Present Illness Chief Complaint: Weakness, worsening shortness of breath Primary Care Provider: Galdino Andujar DO History obtained from patient and records. Medical history significant for chronic respiratory failure secondary to possible interstitial lung disease on home O2, OHS on CPAP, chronic diastolic heart failure (70%, TTE 2021), PVD, hypertension, hyperlipidemia, DM2 insulin requiring, CRI (baseline creatinine 1.6), history PE DVT status post IVC filter placement on Eliquis, hx heparin-induced thrombocytopenia, hypothyroidism, past tobacco abuse, fibromyalgia, restless legs syndrome. Monthly admissions since May 2022 for decompensated heart failure. Patient also received treatment for cat bite on the right hand last confinement from July 15 to 2021. Patient feeling achy a few days after being discharged home last week. Generalized weakness at home. Cough symptoms productive of icky green sputum. No chest pain, no weight gain. Worsening shortness of breath mostly on exertion. Possible COVID-19 contacts at home as per patient. Patient completed COVID-19 vaccination. Denies abdominal pain, dysuria symptoms. O2 sats noted to be 50s upon EMS arrival at home. Patient brought to the ER for evaluation. Decadron and neb treatment administered at the ER. 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 Allergies Allergy/AdvReac Type Severity Reaction Status Date / Time morphine Allergy Severe VIOLENT Verified 12/26/21 00:54 REACTION-"ALMOST " SWELLING tetanus toxoid, adsorbed Allergy Intermediate PASSED OUT Verified 12/26/21 00:54 AND GOT SICK WHEN A CHILD bupropion [From Wellbutrin] AdvReac Intermediate Recurrent Verified 12/26/21 00:54 falls as per patient codeine AdvReac Intermediate Hallucinati Verified 12/26/21 00:54 ons empagliflozin AdvReac Intermediate YEAST Verified 12/26/21 00:54 [From Jardiance] INFECTIONS heparin AdvReac Intermediate HIT; FLUID Verified 12/26/21 00:54 IN LUNGS hydrocodone [From Vicodin] AdvReac Intermediate sleepiness Verified 12/26/21 00:54 Home Medications Medication Instructions Recorded Confirmed Type levothyroxine 200 mcg tablet 200 mcg PO QAM 06/09/18 07/15/22 History omeprazole 20 mg capsule,delayed 20 mg PO HS 06/09/18 07/15/22 History release cyclobenzaprine 10 mg tablet 10 mg PO HS PRN Muscle Spasm 12/08/18 07/15/22 History duloxetine 60 mg capsule,delayed 60 mg PO QAM 12/23/18 07/15/22 History release gabapentin 300 mg capsule 300 mg PO BID 05/09/19 07/15/22 History duloxetine 30 mg capsule,delayed 30 mg PO DAILY 01/25/20 07/15/22 History release trazodone 50 mg tablet 50 mg PO HS 01/25/20 07/15/22 History insulin degludec 100 unit/mL (3 60 unit subcut HS 11/24/20 07/15/22 History mL) subcutaneous pen (Tresiba FlexTouch U-100 insulin) dicyclomine 20 mg tablet 20 mg PO QID PRN abdominal pain 03/27/21 07/15/22 History docusate sodium 100 mg capsule 100 mg PO BID PRN Constipation 03/27/21 07/15/22 History (Colace) insulin aspart U-100 100 unit/mL 40 unit subcut WM 03/27/21 07/15/22 History (3 mL) subcutaneous pen (Novolog Flexpen U-100 Insulin aspart) levothyroxine 50 mcg tablet 50 mcg PO QAM 03/27/21 07/15/22 History meclizine 12.5 mg tablet 12.5 mg PO TID PRN Dizziness 03/27/21 07/15/22 History nortriptyline 50 mg capsule 50 mg PO HS 03/27/21 07/15/22 History (Pamelor) clonazepam 0.5 mg tablet 0.5 mg PO BID PRN anxiety #0 tabs 03/28/21 07/15/22 Rx ropinirole 2 mg tablet 2 mg PO HS 09/20/21 07/15/22 History dulaglutide 4.5 mg/0.5 mL 4.5 mg subcut WK 10/15/21 07/15/22 History subcutaneous pen injector (Trulicity) apixaban 5 mg (74 tabs) tablets in 5 mg PO BID 12/26/21 07/15/22 History a dose pack (Eliquis) magnesium oxide 400 mg (241.3 mg 400 mg PO BID@1200,1800 #60 tabs 06/15/22 07/15/22 Rx magnesium) tablet potassium chloride 20 mEq 20 meq PO BID17 07/14/22 07/15/22 History tablet,extended release(part/cryst) albuterol sulfate 90 mcg/actuation 2 inh inhalation Q4H PRN Shortness 07/15/22 07/15/22 History aerosol inhaler Of Breath Or Wheezing metformin 500 mg tablet,extended 500 mg PO DAILY 07/15/22 07/15/22 History release 24 hr furosemide 40 mg tablet 60 mg PO BID #120 tabs 07/22/22 Rx oxycodone-acetaminophen 5 mg-325 1 tab PO Q12H PRN Pain 07/29/22 07/29/22 History mg tablet Past Med/Surg History Medical History Carotid stenosis, right CKD (chronic kidney disease), stage III Depression with anxiety Diabetes Diabetes mellitus, type II Fibromyalgia GERD (gastroesophageal reflux disease) History of DVT (deep vein thrombosis) History of pulmonary embolism s/p zoraida filter HIT (heparin-induced thrombocytopenia) HLD (hyperlipidemia) HTN (hypertension) Hypothyroidism Morbid obesity ELISSA on CPAP Presence of IVC filter RLS (restless legs syndrome) Sepsis Subclavian artery stenosis Surgical History History of cholecystectomy History of colon resection secondary to R colon perforation, resected treated with colostomy and eventual reversal in 2008, Dr. Lerma History of thyroidectomy, total History of total right knee replacement History of tracheostomy 2010, secondary to acute resp failure secondary to pneumonia, transferred to [facility] Family History Father , age 74 Lung cancer Mother , age 45 Cirrhosis Social History Smoking Status: Former smoker Tobacco Type: Cigarettes Cigarettes Per Day: 15 pack year hx; Second Hand Exposure: No; Hx Alcohol Use: No Hx Substance Use: No Preferred Language: Romanian Communication Ability: Effective Administrative Assistant Coordinator Required: No Beliefs That Will Affect Care: None marital status: Single Current Living Situation: Alone How many Children do You have: 0 Feels Safe at Home: Yes Assistive Devices: Cane and Walker Review of Systems Review of Systems: As per HPI, all other systems reviewed and negative Physical Exam Physical Exam: GENERAL: uncomfortable, morbidly obese, minimal respiratory distress SKIN: Normal color, warm HEENT: [place] palpebral conjunctivae, no ptosis, dry buccal mucosa, nasal cannula in place NECK : Supple, short neck, no tenderness CHEST : Decreased breath sounds, no tenderness HEART : Tachycardic, no obvious murmurs ABDOMEN: distention, nontender EXTREMITIES : Minimal LE swelling, no LE tenderness, scab over right hand NEUROLOGIC : Coherent, no facial asymmetry, no other gross focality Results & Data Results & Data ([facility]) Vital Signs (Past 12 Hours) Vital Signs Temp Pulse Resp BP Pulse Ox O2 Del Method O2 Flow Rate 07/29/22 05:41 105 H 24 89 L Nasal Cannula 4 07/29/22 04:34 37.9 C H 107 H 24 127/82 90 Nasal Cannula 4 07/29/22 04:34 Nasal Cannula 4 Laboratory Results Laboratory Results WBC 10.55 K/ul (4.8-10.8) 07/29/22 05:10 RBC 4.28 M/uL (3.93-5.22) 07/29/22 05:10 Hgb 12.8 g/dl (12.0-16.0) 07/29/22 05:10 Hct 41.9 % (34.1-44.9) 07/29/22 05:10 MCV 97.9 fL (80.0-100.0) 07/29/22 05:10 MCH 29.9 pg (25.0-34.0) 07/29/22 05:10 MCHC 30.5 g/dL (32.0-36.0) L 07/29/22 05:10 RDW Std Deviation 54.7 fL (36.4-46.3) H 07/29/22 05:10 RDW Coeff of Adolfo 15.3 % (11.5-14.5) H 07/29/22 05:10 Plt Count 355 K/uL (130-400) 07/29/22 05:10 MPV 9.9 fL (9.4-12.3) 07/29/22 05:10 Immature Gran % (Auto) 0.9 % 07/29/22 05:10 Neut % (Auto) 75.1 % 07/29/22 05:10 Lymph % (Auto) 13.9 % 07/29/22 05:10 [place] % (Auto) 5.4 % 07/29/22 05:10 Eos % (Auto) 4.0 % 07/29/22 05:10 Baso % (Auto) 0.7 % 07/29/22 05:10 Neut # (Auto) 7.92 K/uL (1.4-6.5) H 07/29/22 05:10 Lymph # (Auto) 1.47 K/uL (1.2-3.4) 07/29/22 05:10 [place] # (Auto) 0.57 K/uL (0.24-0.82) 07/29/22 05:10 Eos # (Auto) 0.42 K/uL (0-0.50) 07/29/22 05:10 Baso # (Auto) 0.07 K/uL (0-0.2) 07/29/22 05:10 Immature Gran # (Auto) 0.10 K/uL (0.00-0.02) H 07/29/22 05:10 APTT 27.1 Seconds (21.0-31.0) 07/29/22 05:10 PTT Ratio 1.0 07/29/22 05:10 ABG pH 7.45 (7.35-7.45) 07/29/22 05:44 ABG pCO2 51 mmHg (35-46) H 07/29/22 05:44 ABG pO2 115 mmHg (80-95) H 07/29/22 05:44 ABG HCO3 35 mmol/L (19-24) H 07/29/22 05:44 ABG O2 Saturation 98.5 % (90-95) H 07/29/22 05:44 ABG Base Excess 9.7 mEq/L (-9-1.8) H 07/29/22 05:44 Robert Test Pos (Pos) 07/29/22 05:44 Oxygen Given 4L 07/29/22 05:44 Sodium 139 mmol/L (136-145) 07/29/22 05:10 Potassium 3.9 mmol/L (3.5-5.1) 07/29/22 05:10 Chloride 96 mmol/L (98-107) L 07/29/22 05:10 Carbon Dioxide 35 mmol/L (21-32) H 07/29/22 05:10 Anion Gap 8 (3-11) 07/29/22 05:10 BUN 24 mg/dl (6-23) H 07/29/22 05:10 Creatinine 1.76 mg/dl (0.6-1.2) H 07/29/22 05:10 Est Cr Clr Drug Dosing 46.5 ml/min 07/29/22 05:10 Est GFR ( Amer) 34.1 ml/min 07/29/22 05:10 Est GFR (Non-Af Amer) 29.4 ml/min 07/29/22 05:10 BUN/Creatinine Ratio 13.6 (10-20) 07/29/22 05:10 Glucose 146 mg/dl (70-99(Fasting)) H 07/29/22 05:10 Lactate 1.5 mmol/L (0.4-2.0) 07/29/22 05:10 Calcium 9.1 mg/dl (8.5-10.1) 07/29/22 05:10 Magnesium 1.6 mg/dl (1.7-2.4) L 07/29/22 05:10 Total Bilirubin 0.5 mg/dl (0.2-1.0) 07/29/22 05:10 Direct Bilirubin 0.1 mg/dl (0-0.2) 07/29/22 05:10 AST 16 U/L (13-39) 07/29/22 05:10 ALT 12 U/L (7-52) 07/29/22 05:10 Alkaline Phosphatase 67 U/L (34-104) 07/29/22 05:10 B-Natriuretic Peptide 72 pg/ml (0-100) 07/29/22 05:10 Total Protein 7.6 gm/dl (6.0-8.3) 07/29/22 05:10 Albumin 4.0 gm/dl (3.4-5.0) 07/29/22 05:10 Urine Color Yellow 07/29/22 05:22 Urine Appearance Turbid (Clear) A 07/29/22 05:22 Urine pH 6.5 (4.5-7.5) 07/29/22 05:22 Ur Specific [place] 1.011 (1.000-1.030) 07/29/22 05:22 Urine Protein Trace (Negative) H 07/29/22 05:22 Urine Glucose (UA) Negative (Negative) 07/29/22 05:22 Urine Ketones Negative (Negative) 07/29/22 05:22 Urine Blood 1+ (Negative) H 07/29/22 05:22 Urine Nitrite Positive (Negative) A 07/29/22 05:22 Urine Bilirubin Negative (Negative) 07/29/22 05:22 Urine Urobilinogen Negative (Negative) 07/29/22 05:22 Ur Leukocyte Esterase 3+ (Negative) H 07/29/22 05:22 Urine WBC (Auto) >30 /hpf (0-5) H 07/29/22 05:22 Urine RBC (Auto) 5-10 /hpf (0-4) H 07/29/22 05:22 U Hyaline Cast (Auto) 0 /lpf (0-5) 07/29/22 05:22 U Epithel Cells (Auto) 5-10 /lpf (0-5) H 07/29/22 05:22 Urine Bacteria (Auto) 4+ (Negative) H 07/29/22 05:22 Diagnostic Findings Chest x-ray as per my interpretation bilateral infiltrates right greater than the left EKG as per my interpretation : Rate 105, sinus tachycardia, normal axis, no ischemia
[2022-07-29 06:07] LABS: Allen Test Pos (Pos)
[2022-07-29 06:16] LABS: BUN Creatinine Ratio 13.6 (10-20); Bilirubin Direct 0.1 mg/dl (0-0.2); Bilirubin,Total 0.5 mg/dl (0.2-1.0); Calcium 9.1 mg/dl (8.5-10.1); Creatinine Clr Calc Pharmacy 46.5 ml/min; Est GFR (African American) 34.1 ml/min; Est GFR (Non-African American) 29.4 ml/min; Magnesium 1.6 mg/dl (1.7-2.4); Potassium 3.9 mmol/L (3.5-5.1); Total Protein 7.6 gm/dl (6.0-8.3)
[2022-07-29] MEDS ORDERED: cefTRIAXone SODIUM 2,000 MG/70 ML BAG IV STA (06:16)
[2022-07-29] MEDS ORDERED: CEFEPIME 2,000 MG/20 ML VIAL IV STA (06:20)
[2022-07-29 06:28] LABS: Influenza A virus by PCR Negative (Neg); Influenza B virus by PCR Negative (Neg); RSV by PCR Negative (Neg); SARS CoV2 RNA(COVID-19)Cepheid NEGATIVE (Negative)
[2022-07-29 06:30] LABS: Troponin I High Sensitivity 53.6 pg/ml (0-14)
[2022-07-29] MEDS ORDERED: MAGNESIUM SULFATE / D5W 1 GM/100 ML BAG IV SCH (06:30)
[2022-07-29] MEDS ORDERED: ALBUMIN 25% 100 mL 25 GM/100 ML VIAL IV ONE (06:31)
--- NOTE | 2022-07-29 06:44 | XRay Report ---
XR chest 1V portable CLINICAL HISTORY: Sepsis. COMPARISON STUDY: Chest radiograph July 21, 2022. Chest CT September 24, 2021. FINDINGS: There is no pneumothorax or effusion. Interstitial thickening has progressed. There may be patchy airspace opacities within the lungs. Cardiomegaly is noted. IMPRESSION: Increase in interstitial thickening with suspected patchy bilateral airspace opacities. The findings may reflect pulmonary edema or an infectious process superimposed upon interstitial lung disease. Radiographic follow-up is recommended. ACT 112: Negative or not required by law. Electronically signed by: David Lugo M.D. 07/29/2022 6:42 AM
[2022-07-29] MEDS ORDERED: oxyCODONE HCL IR 5 MG TAB (IMMEDIATE RELEASE) PO STA (06:55)
[2022-07-29] MEDS ORDERED: DOCUSATE SODIUM 100 MG CAP PO PRN (07:02)
[2022-07-29] MEDS ORDERED: CYCLOBENZAPRINE HCL 10 MG TAB PO PRN (07:02)
[2022-07-29] MEDS: MAGNESIUM SULFATE / D5W 1 GM/100 ML BAG IV SCH ×2 (07:09→08:26)
[2022-07-29] MEDS ORDERED: GLUCOSE 40% GEL 15 GM TUBE PO PRN ×2 (08:15→08:43)
[2022-07-29] MEDS ORDERED: GLUCAGON FOR INJ 1 MG VIAL IM PRN (08:15)
[2022-07-29] MEDS ORDERED: DEXTROSE 50% 50 ML SYRINGE IV PRN ×2 (08:15→08:43)
[2022-07-29] MEDS ORDERED: CARBOHYDRATES FOR HYPOGLYCEMIA PO PRN ×2 (08:15→08:43)
[2022-07-29] MEDS ORDERED: GLUCOSE 10 TAB/TUBE PO PRN ×2 (08:15→08:43)
[2022-07-29] MEDS ORDERED: GLUCAGON FOR INJ 1 MG VIAL SQ PRN (08:43)
[2022-07-29] MEDS ORDERED: PROMETHAZINE HCL 12.5 MG in SODIUM CHLORIDE 0.9% 50 ML IV PRN (08:43)
[2022-07-29] MEDS ORDERED: LEVALBUTEROL TARTRATE 15 GM HFA.AER.AD INH PRN (08:43)
[2022-07-29] MEDS: INSULIN ASPART PER UNIT SC SCH ×4 (10:32→21:33)
[2022-07-29] MEDS: APIXABAN 5 MG TABLET PO SCH ×2 (11:31→20:02)
[2022-07-29] MEDS: LEVOTHYROXINE SODIUM 200 MCG TABLET PO SCH (11:31)
[2022-07-29] MEDS: DULoxetine HCL 60 MG CAP PO SCH (11:31)
[2022-07-29] MEDS: GABAPENTIN 300 MG CAP PO SCH ×2 (11:31→20:03)
[2022-07-29] MEDS: LEVOTHYROXINE SODIUM 50 MCG TABLET PO SCH (11:31)
[2022-07-29] MEDS: DULoxetine HCL 30 MG CAP PO SCH (11:31)
--- NOTE | 2022-07-29 12:06 | Electrocardiogram Report ---
Test Reason : Blood Pressure : / mmHG Vent. Rate : 107 BPM Atrial Rate : 108 BPM P-R Int : 136 ms QRS Dur : 074 ms QT Int : 326 ms P-R-T Axes : 000 043 048 degrees QTc Int : 435 ms Poor data quality, interpretation may be adversely affected Sinus tachycardia Low voltage QRS Abnormal ECG When compared with ECG of 15-JUL-2022 11:55, No significant change was found Confirmed by Mina Palmer [id number]) on 07/29/2022 12:06:25 PM Referred By: REFERRED SELF Confirmed By:Axel Palmer
[2022-07-29] MEDS: ACETAMINOPHEN 325 MG TAB PO PRN (13:42)
--- NOTE | 2022-07-29 15:47 | Hospitalist Progress Note ---
Date of Service July 29, 2022 Assessment & Plan (1) Acute and chronic respiratory failure with hypoxia: Plan: Hx chronic respiratory failure secondary to possible interstitial lung disease on home O2, OHS on CPAP Pt said that she was exposed to his brother that was tested positive for Covid 19 CXR showed increase in interstitial thickening with suspected patchy bilateral airspace opacities. ABG with pH 7.45, pCO2 51, PO2 115, pHCO3 35 Covid 19, RSV and influenza are negative on admission No Leukocytosis and procalcitonin negative Received ceftriaxone and dexamethasone in the ER Currently on cefepime and Doxycycline Urine cx and blood cx pending Continue oxygen supplement and nebulizer treatment Continue flutter valve and incentive spirometry Will repeat COVID 19 test tomorrow Continue monitor closely Abnormal UA Possible UTI UA positive for nitrite, Leukocytes and bacteria Urine cx pending Received IV Rocephin on admission Continue IV cefepime chronic diastolic heart failure Chronic Elevated troponin Likely demand ischemia given acute on chronic respiratory failure Troponin on admission 53, then increased to 63 EKG showed no acute ischemic changes Denies any chest pain Continue eliquis Obesity hypoventilation syndrome ELISSA Saturating 99% on 6 L nasal cannula, which is more than baseline. CXR showed Increase in interstitial thickening with suspected patchy bilateral airspace opacities. Continue oxygen supplement Continue CPAP HS Acute on chronic CKD III Creatinine admission 1.7 with (baseline ~1.5) lasix help today, will resume lasix in am Monitor BMP Morbid obesity BMI 55 Counseled on diet and exercise Diabetes mellitus, type II Most recent hemoglobin A1c 8 Continue basal/bolus insulin while admitted Continue monitor blood sugar Mood disorder Fibromyalgia Continue duloxetine, nortriptyline, gabapentin, clonazepam PRN Chronic pain Continue PRN tramadol, tylenol DVT Ppx: Eliquis Code status: FULL Admission and Anticipated Discharge Date Admission Date: July 29, 2022 Subjective Pt was seen and examined for follow up of acute respiratory failure Lying in bed with no acute distress Pt said that her brother tested positive for covid 19 and she was around him few days ago Pt said that she has a dry cough she said that she is having joints pain Currently she is on 6L nasal canula Denies any chest pain, palpitation, dizziness and SOB Review of Systems Review of Systems: All systems reviewed & are unremarkable except as noted in Subjective Physical Exam Physical Exam: General- No acute distress Head- at raumatic Eyes- PER RL, EOMI, ENT- karen pharynx clear Neck - supple, no JVD L ungs- Diminished B S Heart- regular rhythm; no murmur Abdomen- normal [place] wel sounds, soft, nontender Extremit ies- no calf tend erness, +trace ed ashvin Neuro- alert, oriented x 3; PER RL, EOMI; no facia l palsy; no dysart hria Skin- warm & dry Results & Data Results & Data ([facility]) Vital Signs (Past 12 Hours) Vital Signs Temp Pulse Pulse Resp BP BP Pulse Ox 07/29/22 11:11 92 H 18 142/70 H 94 07/29/22 08:43 07/29/22 09:59 94 07/29/22 09:55 86 L 07/29/22 08:30 92 H 22 121/53 L 95 07/29/22 07:30 95 H 18 109/45 L 94 07/29/22 06:08 99 H 18 135/60 100 07/29/22 05:41 90 07/29/22 05:41 105 H 24 89 L 07/29/22 04:34 37.9 C H 107 H 24 127/82 90 07/29/22 04:34 Pulse Ox O2 Del Method O2 Del Method O2 Flow Rate O2 Flow Rate 07/29/22 11:11 Nasal Cannula 6 07/29/22 08:43 94 Nasal Cannula 6 07/29/22 09:59 Nasal Cannula 6 07/29/22 09:55 Nasal Cannula 4 07/29/22 08:30 4 07/29/22 07:30 Nasal Cannula 4 07/29/22 06:08 Nebulizer 7 07/29/22 05:41 Nasal Cannula 4 07/29/22 05:41 Nasal Cannula 4 07/29/22 04:34 Nasal Cannula 4 07/29/22 04:34 Nasal Cannula 4
[2022-07-29] MEDS ORDERED: CEFEPIME 2,000 MG/20 ML VIAL ONE (19:27)
[2022-07-29] MEDS: LANTUS PER UNIT CHARGE SQ SCH (19:30)
[2022-07-29] MEDS: CEFEPIME 2,000 MG in SYRINGE 0 ML IV SCH (19:36)
[2022-07-29] MEDS: DOXYCYCLINE HYCLATE 100 MG CAP PO SCH (20:02)
[2022-07-29] MEDS: rOPINIRole HCL 2 MG TABLET PO SCH (20:02)
[2022-07-29] MEDS: traZODone HCL 50 MG TAB PO SCH (20:02)
[2022-07-29] MEDS: NORTRIPTYLINE HCL 25 MG CAP PO SCH (20:02)
[2022-07-29] MEDS: PANTOprazole 40 MG TAB PO SCH (20:05)
[2022-07-29] MEDS ORDERED: LANTUS PER UNIT CHARGE SQ SCH (21:00)
[2022-07-30] MEDS: INSULIN ASPART PER UNIT SC SCH ×4 (08:37→20:25)
[2022-07-30] MEDS: APIXABAN 5 MG TABLET PO SCH ×2 (08:43→20:29)
[2022-07-30] MEDS: CEFEPIME 2,000 MG in SYRINGE 0 ML IV SCH ×3 (08:43→18:44)
[2022-07-30] MEDS: DULoxetine HCL 30 MG CAP PO SCH (08:43)
[2022-07-30] MEDS: DULoxetine HCL 60 MG CAP PO SCH (08:43)
[2022-07-30] MEDS: LEVOTHYROXINE SODIUM 200 MCG TABLET PO SCH (08:44)
[2022-07-30] MEDS: LEVOTHYROXINE SODIUM 50 MCG TABLET PO SCH (08:44)
[2022-07-30] MEDS: clonazePAM 0.5 MG TAB PO PRN ×2 (09:37→20:26)
[2022-07-30] MEDS: ACETAMINOPHEN 325 MG TAB PO PRN (09:38)
[2022-07-30] MEDS: DOXYCYCLINE HYCLATE 100 MG CAP PO SCH ×2 (09:39→20:28)
[2022-07-30] MEDS: GABAPENTIN 300 MG CAP PO SCH ×2 (09:39→20:28)
[2022-07-30 10:27] LABS: Basophils # (auto) 0.05 K/uL (0-0.2); Basophils % (auto) 0.4 %; Hematocrit (blood only) 38.7 % (34.1-44.9); Immature Granulocytes # (auto) 0.16 K/uL (0.00-0.02); Immature Granulocytes % (auto) 1.3 %; Lymphocytes # (auto) 1.01 K/uL (1.2-3.4); Lymphocytes % (auto) 8.2 %; Mean Corpuscular Hemoglobin 29.6 pg (25.0-34.0); Mean Corpuscular Volume 95.6 fL (80.0-100.0); Mean Platelet Volume 10.1 fL (9.4-12.3); Monocytes # (auto) 0.61 K/uL (0.24-0.82); Neutrophils # (auto) 10.44 K/uL (1.4-6.5); Neutrophils % (auto) 85.1 %; Platelet Count 291 K/uL (130-400); RDW Coefficient of Variation 14.5 % (11.5-14.5); RDW Standard Deviation 50.8 fL (36.4-46.3); Red Blood Count 4.05 M/uL (3.93-5.22); White Blood Count 12.27 K/ul (4.8-10.8)
[2022-07-30 10:50] LABS: Creatinine Clr Calc Pharmacy 56.2 ml/min; Est GFR (African American) 43.4 ml/min; Est GFR (Non-African American) 37.5 ml/min; Magnesium 1.9 mg/dl (1.7-2.4)
[2022-07-30] MEDS: oxyCODONE HCL IR 5 MG TAB (IMMEDIATE RELEASE) PO PRN ×2 (12:29→22:09)
[2022-07-30] MEDS ORDERED: FUROSEMIDE 20 MG TAB PO ONE (14:00)
--- NOTE | 2022-07-30 15:29 | Hospitalist Progress Note ---
Date of Service July 30, 2022 Assessment & Plan (1) Acute and chronic respiratory failure with hypoxia: Plan: Hx chronic respiratory failure secondary to possible interstitial lung disease on home O2, OHS on CPAP Pt said that she was exposed to his brother that was tested positive for Covid 19 CXR showed increase in interstitial thickening with suspected patchy bilateral airspace opacities. ABG with pH 7.45, pCO2 51, PO2 115, pHCO3 35 Covid 19, RSV and influenza are negative on admission No Leukocytosis and procalcitonin negative Received ceftriaxone and dexamethasone in the ER Currently on cefepime and Doxycycline Blood cx no growth Continue oxygen supplement and nebulizer treatment Continue flutter valve and incentive spirometry Repeat COVID 19 test negative today Clinically improved Continue monitor closely UTI UA positive for nitrite, Leukocytes and bacteria Urine cx grew gram negative bacilli Received IV Rocephin on admission Continue IV cefepime waiting for sensitivity chronic diastolic heart failure Chronic Elevated troponin Likely demand ischemia given acute on chronic respiratory failure Troponin on admission 53, then increased to 63 EKG showed no acute ischemic changes Lasix resumed Denies any chest pain Continue Eliquis Obesity hypoventilation syndrome ELISSA Saturating 99% on 6 L nasal cannula on admission, which is more than baseline. CXR showed Increase in interstitial thickening with suspected patchy bilateral airspace opacities. Oxygen titrate to 4L nasal canula, baseline Continue CPAP HS Acute on chronic CKD III Creatinine admission 1.7 with (baseline ~1.5) Creatinine improved to 1.4 Lasix resumed Monitor BMP Morbid obesity BMI 55 Counseled on diet and exercise Diabetes mellitus, type II Most recent hemoglobin A1c 8 Continue basal/bolus insulin while admitted Continue monitor blood sugar Mood disorder Fibromyalgia Continue duloxetine, nortriptyline, gabapentin, clonazepam PRN Chronic pain Continue PRN tramadol, tylenol DVT Ppx: Eliquis Code status: FULL Admission and Anticipated Discharge Date Admission Date: July 29, 2022 Subjective Pt was seen and examined for follow up of acute respiratory failure Lying in bed with no acute distress Pt said that her brother tested positive for covid 19 and she was around him few days ago Pt said that her breathing improves Currently she is back to 4L oxygen supplement, baseline Her repeat COVID 19 test negative today Denies any chest pain, palpitation, dizziness and SOB Review of Systems Review of Systems: All systems reviewed & are unremarkable except as noted in Subjective Physical Exam Physical Exam: General- No acute distress Head- at raumatic Eyes- PER RL, EOMI, ENT- karen pharynx clear Neck - supple, no JVD L ungs- Diminished B S Heart- regular rhythm; no murmur Abdomen- normal [place] wel sounds, soft, nontender Extremit ies- no calf tend erness, +trace ed ashvin Neuro- alert, oriented x 3; PER RL, EOMI; no facia l palsy; no dysart hria Skin- warm & dry Results & Data Results & Data ([facility]) Vital Signs (Past 12 Hours) Vital Signs Temp Pulse Pulse Resp BP Pulse Ox O2 Del Method 07/30/22 06:08 85 07/30/22 08:00 Nasal Cannula 07/30/22 11:44 36.4 C L 87 18 116/72 97 Nasal Cannula 07/30/22 07:51 36.4 C L 82 20 115/59 L 97 Nasal Cannula O2 Flow Rate 07/30/22 06:08 07/30/22 08:00 6 07/30/22 11:44 4.0 07/30/22 07:51 6.0
[2022-07-30] MEDS: LANTUS PER UNIT CHARGE SQ SCH (20:25)
[2022-07-30] MEDS: PANTOprazole 40 MG TAB PO SCH (20:27)
[2022-07-30] MEDS: NORTRIPTYLINE HCL 25 MG CAP PO SCH (20:29)
[2022-07-30] MEDS: rOPINIRole HCL 2 MG TABLET PO SCH (20:30)
[2022-07-30] MEDS: traZODone HCL 50 MG TAB PO SCH (20:45)
[2022-07-31] MEDS: LEVOTHYROXINE SODIUM 200 MCG TABLET PO SCH (06:00)
[2022-07-31] MEDS: CEFEPIME 2,000 MG in SYRINGE 0 ML IV SCH ×2 (06:00→19:00)
[2022-07-31] MEDS: LEVOTHYROXINE SODIUM 50 MCG TABLET PO SCH (06:00)
[2022-07-31] MEDS: DULoxetine HCL 60 MG CAP PO SCH (08:01)
[2022-07-31] MEDS: DOXYCYCLINE HYCLATE 100 MG CAP PO SCH ×2 (08:02→20:59)
[2022-07-31] MEDS: DULoxetine HCL 30 MG CAP PO SCH (08:02)
[2022-07-31] MEDS: GABAPENTIN 300 MG CAP PO SCH ×2 (08:02→21:00)
[2022-07-31] MEDS: APIXABAN 5 MG TABLET PO SCH ×2 (08:02→21:02)
[2022-07-31] MEDS: INSULIN ASPART PER UNIT SC SCH ×4 (08:07→20:57)
[2022-07-31 08:52] LABS: Hematocrit (blood only) 42.9 % (34.1-44.9); Hemoglobin 13.3 g/dl (12.0-16.0); Mean Corpuscular Hemoglobin 29.8 pg (25.0-34.0); Mean Corpuscular Volume 96.2 fL (80.0-100.0); Platelet Count 347 K/uL (130-400); RDW Coefficient of Variation 14.8 % (11.5-14.5); RDW Standard Deviation 51.8 fL (36.4-46.3); Red Blood Count 4.46 M/uL (3.93-5.22); White Blood Count 11.91 K/ul (4.8-10.8)
[2022-07-31 09:37] LABS: BUN Creatinine Ratio 19.1 (10-20); Calcium 9.2 mg/dl (8.5-10.1); Creatinine Clr Calc Pharmacy 53.2 ml/min; Est GFR (African American) 40.7 ml/min; Est GFR (Non-African American) 35.1 ml/min; Potassium 3.8 mmol/L (3.5-5.1)
[2022-07-31] MEDS ORDERED: FUROSEMIDE 20 MG TAB PO ONE (11:47)
[2022-07-31] MEDS: clonazePAM 0.5 MG TAB PO PRN ×2 (11:48→20:57)
[2022-07-31] MEDS: traZODone HCL 50 MG TAB PO SCH (20:56)
[2022-07-31] MEDS: oxyCODONE HCL IR 5 MG TAB (IMMEDIATE RELEASE) PO PRN (20:56)
[2022-07-31] MEDS: LANTUS PER UNIT CHARGE SQ SCH (20:58)
[2022-07-31] MEDS: PANTOprazole 40 MG TAB PO SCH (20:59)
[2022-07-31] MEDS: NORTRIPTYLINE HCL 25 MG CAP PO SCH (21:01)
[2022-07-31] MEDS: rOPINIRole HCL 2 MG TABLET PO SCH (21:01)
[2022-08-01] MEDS: LEVOTHYROXINE SODIUM 200 MCG TABLET PO SCH (06:12)
[2022-08-01] MEDS: CEFEPIME 2,000 MG in SYRINGE 0 ML IV SCH (06:12)
[2022-08-01] MEDS: LEVOTHYROXINE SODIUM 50 MCG TABLET PO SCH (06:12)
[2022-08-01] MEDS: DULoxetine HCL 30 MG CAP PO SCH (07:42)
[2022-08-01] MEDS: APIXABAN 5 MG TABLET PO SCH (07:42)
[2022-08-01] MEDS: DULoxetine HCL 60 MG CAP PO SCH (07:42)
[2022-08-01] MEDS: DOXYCYCLINE HYCLATE 100 MG CAP PO SCH (07:42)
[2022-08-01] MEDS: GABAPENTIN 300 MG CAP PO SCH (07:42)
[2022-08-01] MEDS: INSULIN ASPART PER UNIT SC SCH ×2 (08:08→11:41)
[2022-08-01 08:39] LABS: Hematocrit (blood only) 46.8 % (34.1-44.9); Hemoglobin 14.5 g/dl (12.0-16.0); Mean Corpuscular Hemoglobin 29.4 pg (25.0-34.0); Mean Corpuscular Volume 94.9 fL (80.0-100.0); Mean Platelet Volume 9.8 fL (9.4-12.3); Platelet Count 328 K/uL (130-400); RDW Coefficient of Variation 14.9 % (11.5-14.5); RDW Standard Deviation 51.5 fL (36.4-46.3); Red Blood Count 4.93 M/uL (3.93-5.22); White Blood Count 10.74 K/ul (4.8-10.8)
[2022-08-01 08:58] LABS: BUN Creatinine Ratio 22.5 (10-20); Calcium 9.4 mg/dl (8.5-10.1); Creatinine Clr Calc Pharmacy 56.4 ml/min; Est GFR (African American) 44.2 ml/min; Est GFR (Non-African American) 38.1 ml/min; Potassium 3.3 mmol/L (3.5-5.1)
[2022-08-01] MEDS ORDERED: POTASSIUM CHLORIDE 10 MEQ TABCR PO STA (10:25)
[2022-08-01] MEDS ORDERED: FUROSEMIDE 20 MG TAB PO SCH (10:30)
[2022-08-01] MEDS ORDERED: CEFDINIR 300 MG CAP PO STA (15:11)
[2022-08-01] MEDS ORDERED: DOXYCYCLINE HYCLATE 100 MG CAP PO STA (15:11)
--- NOTE | 2022-08-01 15:17 | Discharge Summary ---
Date of Service August 01, 2022 Admission HPI Per Admitting Provider History obtained from patient and records. Medical history significant for chronic respiratory failure secondary to possible interstitial lung disease on home O2, OHS on CPAP, chronic diastolic heart failure (70%, TTE 2021), PVD, hypertension, hyperlipidemia, DM2 insulin requiring, CRI (baseline creatinine 1.6), history PE DVT status post IVC filter placement on Eliquis, hx heparin-induced thrombocytopenia, hypothyroidism, past tobacco abuse, fibromyalgia, restless legs syndrome. Monthly admissions since May 2022 for decompensated heart failure. Patient also received treatment for cat bite on the right hand last confinement from July 15 to 2021. Patient feeling achy a few days after being discharged home last week. Generalized weakness at home. Cough symptoms productive of icky green sputum. No chest pain, no weight gain. Worsening shortness of breath mostly on exertion. Possible COVID-19 contacts at home as per patient. Patient completed COVID-19 vaccination. Denies abdominal pain, dysuria symptoms. O2 sats noted to be 50s upon EMS arrival at home. Patient brought to the ER for evaluation. Decadron and neb treatment administered at the ER. 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 Admission Exam Per Admitting Provider GENERAL: uncomfortable, morbidly obese, minimal respiratory distress SKIN: Normal color, warm HEENT: [place] palpebral conjunctivae, no ptosis, dry buccal mucosa, nasal cannula in place NECK : Supple, short neck, no tenderness CHEST : Decreased breath sounds, no tenderness HEART : Tachycardic, no obvious murmurs ABDOMEN: distention, nontender EXTREMITIES : Minimal LE swelling, no LE tenderness, scab over right hand NEUROLOGIC : Coherent, no facial asymmetry, no other gross focality Principal Diagnosis Acute and chronic respiratory failure with hypoxia: Urinary tract infection chronic diastolic heart failure Chronic Elevated troponin Obesity hypoventilation syndrome ELISSA Acute on chronic CKD III Morbid obesity Diabetes mellitus, type II Mood disorder Fibromyalgia Chronic pain Discharge Exam General- No acute distress Head- atraumatic Eyes- PERRL, EOMI, ENT- oropharynx clear Neck- supple, no JVD Lungs- Diminished BS Heart- regular rhythm; no murmur Abdomen- normal bowel sounds, soft, nontender Extremities- no calf tenderness, +trace edema Neuro- alert, oriented x 3; PERRL, EOMI; no facial palsy; no dysarthria Skin- warm & dry Discharge Data Allergies Allergy/AdvReac Type Severity Reaction Status Date / Time morphine Allergy Severe VIOLENT Verified 12/26/21 00:54 REACTION-"ALMOST " SWELLING tetanus toxoid, adsorbed Allergy Intermediate PASSED OUT Verified 12/26/21 00:54 AND GOT SICK WHEN A CHILD bupropion [From Wellbutrin] AdvReac Intermediate Recurrent Verified 12/26/21 00:54 falls as per patient codeine AdvReac Intermediate Hallucinati Verified 12/26/21 00:54 ons empagliflozin AdvReac Intermediate YEAST Verified 12/26/21 00:54 [From Jardiance] INFECTIONS heparin AdvReac Intermediate HIT; FLUID Verified 12/26/21 00:54 IN LUNGS hydrocodone [From Vicodin] AdvReac Intermediate sleepiness Verified 12/26/21 00:54 Consultations 07/29/22 04:25 ED Decision to Admit Stat Ordered Studies Laboratory Results WBC 10.74 K/ul (4.8-10.8) 08/01/22 08:08 RBC 4.93 M/uL (3.93-5.22) 08/01/22 08:08 Hgb 14.5 g/dl (12.0-16.0) 08/01/22 08:08 Hct 46.8 % (34.1-44.9) H 08/01/22 08:08 MCV 94.9 fL (80.0-100.0) 08/01/22 08:08 MCH 29.4 pg (25.0-34.0) 08/01/22 08:08 MCHC 31.0 g/dL (32.0-36.0) L 08/01/22 08:08 RDW Std Deviation 51.5 fL (36.4-46.3) H 08/01/22 08:08 RDW Coeff of Adolfo 14.9 % (11.5-14.5) H 08/01/22 08:08 Plt Count 328 K/uL (130-400) 08/01/22 08:08 MPV 9.8 fL (9.4-12.3) 08/01/22 08:08 Immature Gran % (Auto) 1.3 % 07/30/22 10:01 Neut % (Auto) 85.1 % 07/30/22 10:01 Lymph % (Auto) 8.2 % 07/30/22 10:01 [place] % (Auto) 5.0 % 07/30/22 10:01 Eos % (Auto) 0.0 % 07/30/22 10:01 Baso % (Auto) 0.4 % 07/30/22 10:01 Neut # (Auto) 10.44 K/uL (1.4-6.5) H 07/30/22 10:01 Lymph # (Auto) 1.01 K/uL (1.2-3.4) L 07/30/22 10:01 [place] # (Auto) 0.61 K/uL (0.24-0.82) 07/30/22 10:01 Eos # (Auto) 0.00 K/uL (0-0.50) 07/30/22 10:01 Baso # (Auto) 0.05 K/uL (0-0.2) 07/30/22 10:01 Immature Gran # (Auto) 0.16 K/uL (0.00-0.02) H 07/30/22 10:01 APTT 27.1 Seconds (21.0-31.0) 07/29/22 05:10 PTT Ratio 1.0 07/29/22 05:10 ABG pH 7.45 (7.35-7.45) 07/29/22 05:44 ABG pCO2 51 mmHg (35-46) H 07/29/22 05:44 ABG pO2 115 mmHg (80-95) H 07/29/22 05:44 ABG HCO3 35 mmol/L (19-24) H 07/29/22 05:44 ABG O2 Saturation 98.5 % (90-95) H 07/29/22 05:44 ABG Base Excess 9.7 mEq/L (-9-1.8) H 07/29/22 05:44 Robert Test Pos (Pos) 07/29/22 05:44 Oxygen Given 4L 07/29/22 05:44 Sodium 139 mmol/L (136-145) 08/01/22 08:08 Potassium 3.3 mmol/L (3.5-5.1) L 08/01/22 08:08 Chloride 95 mmol/L (98-107) L 08/01/22 08:08 Carbon Dioxide 37 mmol/L (21-32) H 08/01/22 08:08 Anion Gap 7 (3-11) 08/01/22 08:08 BUN 32 mg/dl (6-23) H 08/01/22 08:08 Creatinine 1.42 mg/dl (0.6-1.2) H 08/01/22 08:08 Est Cr Clr Drug Dosing 56.4 ml/min 08/01/22 08:08 Est GFR ( Amer) 44.2 ml/min 08/01/22 08:08 Est GFR (Non-Af Amer) 38.1 ml/min 08/01/22 08:08 BUN/Creatinine Ratio 22.5 (10-20) H 08/01/22 08:08 Glucose 103 mg/dl (70-99(Fasting)) H 08/01/22 08:08 POC Glucose 114 mg/dl (70-99) H 08/01/22 11:25 Lactate 1.5 mmol/L (0.4-2.0) 07/29/22 05:10 Calcium 9.4 mg/dl (8.5-10.1) 08/01/22 08:08 Magnesium 1.9 mg/dl (1.7-2.4) 07/30/22 10:01 Total Bilirubin 0.5 mg/dl (0.2-1.0) 07/29/22 05:10 Direct Bilirubin 0.1 mg/dl (0-0.2) 07/29/22 05:10 AST 16 U/L (13-39) 07/29/22 05:10 ALT 12 U/L (7-52) 07/29/22 05:10 Alkaline Phosphatase 67 U/L (34-104) 07/29/22 05:10 Troponin I High Sens 67.6 pg/ml (0-14) H* D 07/29/22 10:03 B-Natriuretic Peptide 72 pg/ml (0-100) 07/29/22 05:10 Total Protein 7.6 gm/dl (6.0-8.3) 07/29/22 05:10 Albumin 4.0 gm/dl (3.4-5.0) 07/29/22 05:10 Procalcitonin < 0.05 ng/ml (0-0.5) 07/29/22 05:10 Urine Color Yellow 07/29/22 05:22 Urine Appearance Turbid (Clear) A 07/29/22 05:22 Urine pH 6.5 (4.5-7.5) 07/29/22 05:22 Ur Specific Vincent 1.011 (1.000-1.030) 07/29/22 05:22 Urine Protein Trace (Negative) H 07/29/22 05:22 Urine Glucose (UA) Negative (Negative) 07/29/22 05:22 Urine Ketones Negative (Negative) 07/29/22 05:22 Urine Blood 1+ (Negative) H 07/29/22 05:22 Urine Nitrite Positive (Negative) A 07/29/22 05:22 Urine Bilirubin Negative (Negative) 07/29/22 05:22 Urine Urobilinogen Negative (Negative) 07/29/22 05:22 Ur Leukocyte Esterase 3+ (Negative) H 07/29/22 05:22 Urine WBC (Auto) >30 /hpf (0-5) H 07/29/22 05:22 Urine RBC (Auto) 5-10 /hpf (0-4) H 07/29/22 05:22 U Hyaline Cast (Auto) 0 /lpf (0-5) 07/29/22 05:22 U Epithel Cells (Auto) 5-10 /lpf (0-5) H 07/29/22 05:22 Urine Bacteria (Auto) 4+ (Negative) H 07/29/22 05:22 SARS-CoV-2 (PCR) NEGATIVE (Negative) 07/30/22 12:32 Influenza Type A (PCR) Negative (Neg) 07/29/22 05:17 Influenza Type B (PCR) Negative (Neg) 07/29/22 05:17 RSV (RT-PCR) Negative (Neg) 07/29/22 05:17 Impressions Chest X-Ray 07/29/22 04:23 XR chest 1V portable CLINICAL HISTORY: Sepsis. COMPARISON STUDY: Chest radiograph July 21, 2022. Chest CT September 24, 2021. FINDINGS: There is no pneumothorax or effusion. Interstitial thickening has progressed. There may be patchy airspace opacities within the lungs. Cardiomegaly is noted. IMPRESSION: Increase in interstitial thickening with suspected patchy bilateral airspace opacities. The findings may reflect pulmonary edema or an infectious process superimposed upon interstitial lung disease. Radiographic follow-up is recommended. ACT 112: Negative or not required by law. Electronically signed by: David Lugo M.D. 07/29/2022 6:42 AM Hospital Course (1) Acute and chronic respiratory failure with hypoxia: Hx chronic respiratory failure secondary to possible interstitial lung disease on home O2, OHS on CPAP Pt said that she was exposed to his brother that was tested positive for Covid 19 CXR showed increase in interstitial thickening with suspected patchy bilateral airspace opacities. ABG with pH 7.45, pCO2 51, PO2 115, pHCO3 35 Covid 19, RSV and influenza are negative on admission No Leukocytosis and procalcitonin negative Received ceftriaxone and dexamethasone in the ER Currently on cefepime and Doxycycline Blood cx no growth Continue oxygen supplement and nebulizer treatment Continue flutter valve and incentive spirometry Repeat COVID 19 test negative Will discharge on Cefdinir and Doxycycline Clinically improved Continue monitor closely UTI UA positive for nitrite, Leukocytes and bacteria Urine cx grew gram negative bacilli Received IV Rocephin on admission Currently on IV cefepime Will discharge of Cefdinir to complete the course of the antibioic chronic diastolic heart failure Chronic Elevated troponin Likely demand ischemia given acute on chronic respiratory failure Troponin on admission 53, then increased to 63 EKG showed no acute ischemic changes Lasix resumed Denies any chest pain Continue Eliquis Obesity hypoventilation syndrome ELISSA Saturating 99% on 6 L nasal cannula on admission, which is more than baseline. CXR showed Increase in interstitial thickening with suspected patchy bilateral airspace opacities. Oxygen titrate to 4L nasal canula, baseline Continue CPAP HS Acute on chronic CKD III Creatinine admission 1.7 with (baseline ~1.5) Creatinine improved to 1.4 Lasix resumed Monitor BMP Morbid obesity BMI 55 Counseled on diet and exercise Diabetes mellitus, type II Most recent hemoglobin A1c 8 Continue basal/bolus insulin while admitted Continue monitor blood sugar Mood disorder Fibromyalgia Continue duloxetine, nortriptyline, gabapentin, clonazepam PRN Chronic pain Continue PRN tramadol, tylenol DVT Ppx: Eliquis Code status: FULL Total Time Total Time Spent Total Time Spent (In Minutes): 35 minutes Discharge Plan Discharge Items Patient Disposition: Home - Self-Care Reason For Visit: RESP FAILURE, POSSIBLE COVID Discharge Diagnosis: Acute and chronic respiratory failure with hypoxia: Urinary tract infection chronic diastolic heart failure Chronic Elevated troponin Obesity hypoventilation syndrome ELISSA Acute on chronic CKD III Morbid obesity Diabetes mellitus, type II Mood disorder Fibromyalgia Chronic pain Condition on Discharge: Fair Activity: Resume your previous activity Non-emergency contact: Primary Care Provider Call non-emergency contact if: you have any medication questions and your temperature is above 101 Follow-up/Referrals: Galdino Andujar DO [Primary Care Provider] - Diet: Heart Healthy Addtl Attending Provider Instructions: Follow up with your primary care provider within 1 week Complete the course of the antibiotic with Cefdinir and doxycycline Continue flutter valve and incentive spirometry Continue to use your oxygen at 2L/min at rest and 4L/min with activity. Check BMP in 1 week to monitor your electrolytes and renal function Continue to wear mask and practice social distance Seek medical attention if your symptoms reoccur or develop any shortness of breath Pending Studies at Discharge: No Stand-Alone Forms: My [employer], Smoking Cessation Medications and DC Order Prescriptions: Continued levothyroxine 200 mcg Tablet 200 mcg PO QAM Rx Instructions: TAKE ONE 200 MCG TABLET ALONG WITH ONE 50 MCG TABLET TO EQUAL 250 MCG DAILY DOSE omeprazole 20 mg Capsule,Delayed Release(Dr/Ec) 20 mg PO HS gabapentin 300 mg Capsule 300 mg PO BID trazodone 50 mg tablet 50 mg PO HS duloxetine 30 mg Capsule,Delayed Release(Dr/Ec) 30 mg PO DAILY Rx Instructions: TOTAL DOSE 90 MG--TAKES WITH 60 MG CAP. insulin degludec [Tresiba FlexTouch U-100] 100 unit/mL (3 mL) Insulin Pen 60 unit SUBCUT HS cyclobenzaprine 10 mg Tablet 10 mg PO HS PRN (Reason: Muscle Spasm) duloxetine 60 mg capsule,delayed release(DR/EC) 60 mg PO QAM Rx Instructions: TOTAL DOSE 90 MG--TAKES WITH 30 MG CAP. insulin aspart U-100 [Novolog Flexpen U-100 Insulin] 100 unit/mL (3 mL) insulin pen 40 unit SUBCUT WM Rx Instructions: plus sliding scale 1 unit for every 25 units bg >150 dicyclomine 20 mg tablet 20 mg PO QID PRN (Reason: abdominal pain) nortriptyline [Pamelor] 50 mg capsule 50 mg PO HS levothyroxine 50 mcg tablet 50 mcg PO QAM Rx Instructions: TOTAL DOSE 250 MCG--TAKES WITH 200 MCG TAB. docusate sodium [Colace] 100 mg capsule 100 mg PO BID PRN (Reason: Constipation) meclizine 12.5 mg tablet 12.5 mg PO TID PRN (Reason: Dizziness) clonazepam 0.5 mg Tablet 0.5 mg PO BID PRN (Reason: anxiety) Qty: 0 0RF ropinirole 2 mg Tablet 2 mg PO HS potassium chloride 20 mEq tablet,ER particles/crystals 20 meq PO BID17 albuterol sulfate 90 mcg/actuation HFA aerosol inhaler 2 inh INHALATION Q4H PRN (Reason: Shortness Of Breath Or Wheezing) metformin 500 mg tablet extended release 24 hr 500 mg PO DAILY furosemide 40 mg tablet 60 mg PO BID Qty: 120 0RF oxycodone-acetaminophen 5-325 mg tablet 1 tab PO Q12H PRN (Reason: Pain) Rx Instructions: severe pain Trulicity 4.5 mg/0.5 mL pen injector 4.5 mg SUBCUT WK Rx Instructions: TAKE THIS MED EVERY TUESDAY. Eliquis 5 mg (74 tabs) tablets,dose pack 5 mg PO BID magnesium oxide 400 mg (241.3 mg magnesium) Tablet 400 mg PO BID@1200,1800 Qty: 60 0RF Discharge Orders: Discharge Order (Routine); Ordered 08/01/22 Ordered By: Vidal Loya/Other Patient Handouts: What Is Heart Failure, Heart Failure: Tracking Your Weight, Using Oxygen Safely, DASH Plan Eat Heart Healthy Food Admission Data Admit Date/Time: 07/29/22 06:26 Attending Provider: Vidal De Leon Admit Provider: Moncho Laurent Primary Care Provider: Galdino Andujar Other Providers: Moncho Laurent Other Interventions: Discharge Summary Assessment (RN) Last Done: 08/01/22 15:19
== END 2022-08-01 15:54 | disposition home or self-care (01) | DRG 189 ==
LOC: ED 04:10 → EDINP 06:26 → 2S 22:35

== ENCOUNTER 2023-03-05 01:11 | Inpatient (IN) ==
[2023-03-05] MEDS ORDERED: KETOROLAC TROMETHAMINE 15 MG/ML VIAL IV STA (01:18)
[2023-03-05] MEDS ORDERED: dexAMETHasone**PF** 10 MG/ML VIAL IV ONE (01:18)
--- NOTE | 2023-03-05 01:38 | Emergency Department Note ---
History of Present Illness General Chief complaint: Back Injury/Pain Stated complaint: SCIATICA/FIBROMYALGIA PAIN Time Seen by Provider: 03/05/23 01:11 History of Present Illness Maximum Pain Intensity: 10 67-year-old female with a history of fibromyalgia presents emergency department with complaint of left sciatica pain and diffuse generalized fibromyalgia pain. Patient is currently taking gabapentin and other pain medicines. Patient is followed by pain management she is supposed to receive an injection in her back next week. Patient called EMS tonight she has had a 3-week history of diffuse pain and left sciatica pain that radiates down her left leg. Patient denies ambulatory dysfunction denies bowel or bladder dysfunction. Patient states that the pain is moderate in nature. Patient denies any nausea vomiting fever. There are no other mitigating or alleviating factors Home Medications Medication Instructions Recorded Confirmed Type levothyroxine 200 mcg tablet 200 mcg PO QAM 06/09/18 08/16/22 History omeprazole 20 mg capsule,delayed 20 mg PO HS 06/09/18 08/16/22 History release cyclobenzaprine 10 mg tablet 10 mg PO HS PRN Muscle Spasm 12/08/18 08/16/22 History duloxetine 60 mg capsule,delayed 60 mg PO QAM 12/23/18 08/16/22 History release gabapentin 300 mg capsule 300 mg PO QAM 05/09/19 08/16/22 History trazodone 50 mg tablet 50 mg PO HS 01/25/20 08/16/22 History insulin degludec 100 unit/mL (3 60 unit subcut HS 11/24/20 08/16/22 History mL) subcutaneous pen (Tresiba FlexTouch U-100 insulin) dicyclomine 20 mg tablet 20 mg PO QID PRN abdominal pain 03/27/21 08/16/22 History docusate sodium 100 mg capsule 100 mg PO BID PRN Constipation 03/27/21 08/16/22 History (Colace) insulin aspart U-100 100 unit/mL 40 unit subcut DIRECTED 03/27/21 08/16/22 History (3 mL) subcutaneous pen (Novolog FlexPen U-100 Insulin aspart) levothyroxine 50 mcg tablet 50 mcg PO QAM 03/27/21 08/16/22 History meclizine 12.5 mg tablet 12.5 mg PO TID PRN Dizziness 03/27/21 08/16/22 History nortriptyline 50 mg capsule 50 mg PO HS 03/27/21 08/16/22 History (Pamelor) clonazepam 0.5 mg tablet 0.5 mg PO BID PRN anxiety #0 tabs 03/28/21 08/16/22 Rx ropinirole 2 mg tablet 2 mg PO HS 09/20/21 08/16/22 History dulaglutide 4.5 mg/0.5 mL 4.5 mg subcut WK 10/15/21 08/16/22 History subcutaneous pen injector (Trulicity) apixaban 5 mg (74 tabs) tablets in 5 mg PO BID 12/26/21 08/16/22 History a dose pack (Eliquis) potassium chloride 20 mEq 20 meq PO BID 07/14/22 08/16/22 History tablet,extended release(part/cryst) albuterol sulfate 90 mcg/actuation 2 inh inhalation Q4H PRN Shortness 07/15/22 08/16/22 History aerosol inhaler Of Breath Or Wheezing metformin 500 mg tablet,extended 500 mg PO QAM 07/15/22 08/16/22 History release 24 hr furosemide 40 mg tablet 60 mg PO BID #120 tabs 07/22/22 08/16/22 Rx oxycodone-acetaminophen 5 mg-325 1 tab PO Q12H PRN Pain 07/29/22 08/16/22 History mg tablet magnesium oxide 400 mg (241.3 mg 400 mg PO BID 08/16/22 08/16/22 History magnesium) tablet ondansetron HCl 4 mg tablet 4 mg PO Q6H PRN Nausea 08/16/22 08/16/22 History Allergies Allergy/AdvReac Type Severity Reaction Status Date / Time morphine Allergy Severe VIOLENT Verified 08/16/22 11:11 REACTION-"ALMOST " SWELLING tetanus toxoid, adsorbed Allergy Intermediate PASSED OUT Verified 08/16/22 11:11 AND GOT SICK WHEN A CHILD bupropion [From Wellbutrin] AdvReac Intermediate Recurrent Verified 08/16/22 11:11 falls as per patient codeine AdvReac Intermediate Hallucinati Verified 08/16/22 11:11 ons empagliflozin AdvReac Intermediate YEAST Verified 08/16/22 11:11 [From Jardiance] INFECTIONS heparin AdvReac Intermediate HIT; FLUID Verified 08/16/22 11:11 IN LUNGS hydrocodone [From Vicodin] AdvReac Intermediate sleepiness Verified 08/16/22 11: 11 Past Med/Surg History Medical History Acute metabolic encephalopathy Carotid stenosis, right CHF (congestive heart failure) follows with Dr. Woodall CKD (chronic kidney disease), stage III [facility] with [facility] Depression with anxiety Diabetes mellitus, type II DVT (deep venous thrombosis) at present behind right knee, on Eliquis for this DVT prophylaxis Fibromyalgia Frequent UTI none at present that pt is aware of GERD (gastroesophageal reflux disease) History of DVT (deep vein thrombosis) 2008 due to being in ICU [place] due to pneumonia History of pulmonary embolism 2008 s/p zoraida filter HIT (heparin-induced thrombocytopenia) 2008, [facility] then life flight to [place] > resolved HLD (hyperlipidemia) HTN (hypertension) Hypothyroidism Morbid obesity Nausea and vomiting after administration of anesthetic agent Neuropathy bilat feet On home oxygen therapy 2-4 continuous ELISSA on CPAP Presence of IVC filter 2008 RLS (restless legs syndrome) Subclavian artery stenosis follows with Dr. Woodall with [facility] Surgical History History of arthroscopy left ankle History of cholecystectomy History of colon resection secondary to R colon perforation, resected treated with colostomy and eventual reversal in 2008, Dr. Lerma History of colonoscopy History of incisional hernia repair History of thyroidectomy, total 2010 History of tooth extraction History of total right knee replacement History of tracheostomy 2008, secondary to acute resp failure secondary to pneumonia, since reversed in 2010 Family History Father , age 74 Lung cancer Mother , age 45 Cirrhosis Social History Smoking Status: Former smoker Tobacco Type: Cigarettes Cigarettes Per Day: 15 pack year hx; Second Hand Exposure: No; Do You Dip or Chew Tobacco: No; Hx Alcohol Use: No Hx Substance Use: No Preferred Language: Citizen Of [place] Communication Ability: Effective Cash Specialist Required: No Beliefs That Will Affect Care: None marital status: Single Current Living Situation: Alone How many Children do You have: 0 Feels Safe at Home: Yes Assistive Devices: Cane, CPAP, Oxygen - Continuous and Walker Review of Systems A total of 10 systems reviewed and were otherwise negative Musculoskeletal: + myalgia Neurologic: + radiating pain and + restless legs; no numbness and no paresthesia Physical Exam Vital Signs Vital Signs - 24 hr 03/05/23 01:17 03/05/23 01:17 03/05/23 01:27 Temperature 37.2 C Temperature Source Oral Pulse Rate 90 Respiratory Rate 22 Respiratory Effort / Characteristics Non-Labored Non-Labored Respiratory Depth Normal Normal Blood Pressure 127/69 Blood Pressure Mean 88 Pulse Oximetry 97 97 Oxygen Delivery Method Nasal Cannula Nasal Cannula Oxygen Flow Rate 3 Sepsis Recent Fever Within 48 Hours No Sepsis New/Unexplained Change in Mental Status No Sepsis Action Taken by Nursing No Action Required GENERAL: Patient is awake alert in no acute distress patient however she is moaning in pain EYES: The conjunctivae are clear. The pupils are round and reactive. EARS, NOSE, MOUTH AND THROAT: The nose is without any evidence of any deformity. Mucous membranes are moist. Tongue is midline. NECK: The neck is nontender and supple. RESPIRATORY: Normal respiratory effort is noted there is no evidence of wheezing rhonchi or rales CARDIOVASCULAR: Regular rate and rhythm noted there no murmurs rubs or gallops normal S1 normal S2. GASTROINTESTINAL: The abdomen is soft. Abdomen is nontender. Morbidly obese BACK: No midline tenderness or or step-off noted range of motion in flexion extension as well as rotation no signs of muscle spasm noted patient has lateral low lumbar tenderness with palpation MUSCULOSKELETAL/EXTREMITIES: There is no evidence of gross deformity full range of motion is noted in the hips and shoulders. Patient is able to move her legs without any difficulty SKIN: There is no obvious evidence of any rash. There are no petechiae, pallor or cyanosis noted. NEUROLOGIC: Patient is awake alert and oriented x3 strength is symmetri Course Reevaluation(s) Reevaluation #1: Patient continued to complain of pain. On my reassessment, she states continued pain that is diffuse in nature Time: :46 Consultations Consultation #1: Case was discussed with [facility]ist for admission Time: :46 Administered Medications Discontinued Medications Dexamethasone Sodium Phosphate (DexamethasonePf 10 Mg/Ml Vial) 10 mg IV NOW ONE Stop: 03/05/23 01:19 Last Admin: 03/05/23 01:29 Dose: 10 mg Documented By: BERNY Ketorolac Tromethamine (Ketorolac Tromethamine 15 Mg/Ml Vial) 15 mg IV NOW STA Stop: 03/05/23 01:19 Last Admin: 03/05/23 01:29 Dose: 15 mg Documented By: BERNY Medical Decision Making Medical Records Attestation: I reviewed the patient's medical records. Home Medications Current Medication List: was personally reviewed by sd Laboratory Data Attestation: I reviewed the patient's lab results. Patient has an elevated white blood cell count as interpreted by me 03/05/23 01:25 03/05/23 01:25 Lab Results 03/05/23 03/05/23 03/05/23 Range/Units 01:25 01:25 01:25 WBC 14.72 H (4.8-10.8) K/ul RBC 3.93 L (4.20-5.40) M/uL Hgb 12.0 (12.0-16.0) g/dl Hct 37.3 (37.0-47.0) % MCV 94.9 (80.0-100.0) fL MCH 30.5 (25.0-34.0) pg MCHC 32.2 (32.0-36.0) g/dL RDW Std Deviation 49.2 H (36.4-46.3) fL RDW Coeff of Adolfo 14.3 (11.5-14.5) % Plt Count 265 (130-400) K/uL MPV 9.7 (9.4-12.4) fL Immature Gran % (Auto) 0.6 % Neut % (Auto) 75.0 % Lymph % (Auto) 15.1 % [place] % (Auto) 6.6 % Eos % (Auto) 2.3 % Baso % (Auto) 0.4 % Neut # (Auto) 11.04 H (1.40-6.50) K/uL Lymph # (Auto) 2.22 (1.2-3.4) K/uL [place] # (Auto) 0.97 H (0.11-0.59) K/uL Eos # (Auto) 0.34 (0-0.50) K/uL Baso # (Auto) 0.06 (0-0.2) K/uL Immature Gran # (Auto) 0.09 (0.01-0.20) K/uL PT Cancelled INR Cancelled Sodium 135 L (136-145) mmol/L Potassium 4.0 (3.5-5.1) mmol/L Chloride 94 L (98-107) mmol/L Carbon Dioxide 32 (21-32) mmol/L Anion Gap 9 (3-11) BUN 32 H (6-23) mg/dl Creatinine 1.85 H (0.6-1.2) mg/dl Est Cr Clr Drug Dosing 43.1 ml/min Est GFR ( Amer) 32.1 ml/min Est GFR (Non-Af Amer) 27.7 ml/min BUN/Creatinine Ratio 17.3 (10-20) Glucose 160 H (70-99(Fasting)) mg/dl Calcium 8.9 (8.6-10.3) mg/dl Magnesium 1.7 (1.7-2.4) mg/dl Total Bilirubin 0.5 (0.2-1.0) mg/dl AST 19 (13-39) U/L ALT 10 (7-52) U/L Alkaline Phosphatase 86 (34-104) U/L Total Creatine Kinase 110 (26-192) U/L Total Protein 7.4 (6.0-8.3) gm/dl Albumin 3.7 (3.4-5.0) gm/dl Globulin 3.7 (2.5-4.0) gm/dl Albumin/Globulin Ratio 1.0 (0.9-2) SARS-CoV-2, RNA, NAAT (NEGATIVE) 03/05/23 Range/Units 01:25 WBC (4.8-10.8) K/ul RBC (4.20-5.40) M/uL Hgb (12.0-16.0) g/dl Hct (37.0-47.0) % MCV (80.0-100.0) fL MCH (25.0-34.0) pg MCHC (32.0-36.0) g/dL RDW Std Deviation (36.4-46.3) fL RDW Coeff of Adolfo (11.5-14.5) % Plt Count (130-400) K/uL MPV (9.4-12.4) fL Immature Gran % (Auto) % Neut % (Auto) % Lymph % (Auto) % [place] % (Auto) % Eos % (Auto) % Baso % (Auto) % Neut # (Auto) (1.40-6.50) K/uL Lymph # (Auto) (1.2-3.4) K/uL [place] # (Auto) (0.11-0.59) K/uL Eos # (Auto) (0-0.50) K/uL Baso # (Auto) (0-0.2) K/uL Immature Gran # (Auto) (0.01-0.20) K/uL PT INR Sodium (136-145) mmol/L Potassium (3.5-5.1) mmol/L Chloride (98-107) mmol/L Carbon Dioxide (21-32) mmol/L Anion Gap (3-11) BUN (6-23) mg/dl Creatinine (0.6-1.2) mg/dl Est Cr Clr Drug Dosing ml/min Est GFR ( Amer) ml/min Est GFR (Non-Af Amer) ml/min BUN/Creatinine Ratio (10-20) Glucose (70-99(Fasting)) mg/dl Calcium (8.6-10.3) mg/dl Magnesium (1.7-2.4) mg/dl Total Bilirubin (0.2-1.0) mg/dl AST (13-39) U/L ALT (7-52) U/L Alkaline Phosphatase (34-104) U/L Total Creatine Kinase (26-192) U/L Total Protein (6.0-8.3) gm/dl Albumin (3.4-5.0) gm/dl Globulin (2.5-4.0) gm/dl Albumin/Globulin Ratio (0.9-2) SARS-CoV-2, RNA, NAAT NEGATIVE (NEGATIVE) MDM Narrative Medical decision making differential diagnosis includes fibromyalgia flare, chronic pain exacerbation, electrolyte abnormality, dehydration, sciatica Plan is to check labs, give IV fluids IV pain medicine External medical records were reviewed EMS gave me bedside report Patient continued to have pain patient was given IV Decadron, IV fluids IV Toradol, has an elevated creatinine but has had that range in the past. I do not suspect cauda equina syndrome or an epidural abscess in this patient at this time. Patient will be admitted and [facility] & Plan Intractable pain, Fibromyalgia, Sciatica Discharge Plan Visit Data Chief Complaint: Back Injury/Pain Stated Complaint: SCIATICA/FIBROMYALGIA PAIN ED Provider: Isai Patino Discharge Problem: Intractable pain, Fibromyalgia, Sciatica Patient Disposition: Admitted As Inpatient Forms Stand Alone Forms: My [facility] Prescriptions Prescriptions: No Action levothyroxine 200 mcg Tablet 200 mcg PO QAM Rx Instructions: TAKE ONE 200 MCG TABLET ALONG WITH ONE 50 MCG TABLET TO EQUAL 250 MCG DAILY DOSE omeprazole 20 mg Capsule,Delayed Release(Dr/Ec) 20 mg PO HS gabapentin 300 mg Capsule 300 mg PO QAM trazodone 50 mg tablet 50 mg PO HS insulin degludec [Tresiba FlexTouch U-100] 100 unit/mL (3 mL) Insulin Pen 60 unit SUBCUT HS cyclobenzaprine 10 mg Tablet 10 mg PO HS PRN (Reason: Muscle Spasm) duloxetine 60 mg capsule,delayed release(DR/EC) 60 mg PO QAM insulin aspart U-100 [Novolog FlexPen U-100 Insulin] 100 unit/mL (3 mL) insulin pen 40 unit SUBCUT DIRECTED Rx Instructions: plus sliding scale 1 unit for every 25 units bg >150 dicyclomine 20 mg tablet 20 mg PO QID PRN (Reason: abdominal pain) nortriptyline [Pamelor] 50 mg capsule 50 mg PO HS levothyroxine 50 mcg tablet 50 mcg PO QAM Rx Instructions: TOTAL DOSE 250 MCG--TAKES WITH 200 MCG TAB. docusate sodium [Colace] 100 mg capsule 100 mg PO BID PRN (Reason: Constipation) meclizine 12.5 mg tablet 12.5 mg PO TID PRN (Reason: Dizziness) clonazepam 0.5 mg Tablet 0.5 mg PO BID PRN (Reason: anxiety) Qty: 0 0RF ropinirole 2 mg Tablet 2 mg PO HS potassium chloride 20 mEq tablet,ER particles/crystals 20 meq PO BID albuterol sulfate 90 mcg/actuation HFA aerosol inhaler 2 inh INHALATION Q4H PRN (Reason: Shortness Of Breath Or Wheezing) metformin 500 mg tablet extended release 24 hr 500 mg PO QAM furosemide 40 mg tablet 60 mg PO BID Qty: 120 0RF oxycodone-acetaminophen 5-325 mg tablet 1 tab PO Q12H PRN (Reason: Pain) Rx Instructions: severe pain Trulicity 4.5 mg/0.5 mL pen injector 4.5 mg SUBCUT WK Rx Instructions: TAKE THIS MED EVERY TUESDAY. Eliquis 5 mg (74 tabs) tablets,dose pack 5 mg PO BID magnesium oxide 400 mg (241.3 mg magnesium) tablet 400 mg PO BID ondansetron HCl [Zofran] 4 mg Tablet 4 mg PO Q6H PRN (Reason: Nausea) Referrals Referrals: Galdino Andujar, [Primary Care Provider] -
[2023-03-05 01:42] LABS: Basophils # (auto) 0.06 K/uL (0-0.2); Basophils % (auto) 0.4 %; Eosinophils # (auto) 0.34 K/uL (0-0.50); Eosinophils % (auto) 2.3 %; Hematocrit (blood only) 37.3 % (37.0-47.0); Immature Granulocytes # (auto) 0.09 K/uL (0.01-0.20); Immature Granulocytes % (auto) 0.6 %; Lymphocytes # (auto) 2.22 K/uL (1.2-3.4); Lymphocytes % (auto) 15.1 %; Mean Corpuscular Hemoglobin 30.5 pg (25.0-34.0); Mean Corpuscular Hgb Conc 32.2 g/dL (32.0-36.0); Mean Corpuscular Volume 94.9 fL (80.0-100.0); Mean Platelet Volume 9.7 fL (9.4-12.4); Monocytes # (auto) 0.97 K/uL (0.11-0.59); Monocytes % (auto) 6.6 %; Neutrophils # (auto) 11.04 K/uL (1.40-6.50); Platelet Count 265 K/uL (130-400); RDW Coefficient of Variation 14.3 % (11.5-14.5); RDW Standard Deviation 49.2 fL (36.4-46.3); Red Blood Count 3.93 M/uL (4.20-5.40); White Blood Count 14.72 K/ul (4.8-10.8)
[2023-03-05 01:58] LABS: Albumin Level 3.7 gm/dl (3.4-5.0); BUN Creatinine Ratio 17.3 (10-20); Bilirubin,Total 0.5 mg/dl (0.2-1.0); Calcium 8.9 mg/dl (8.6-10.3); Creatinine Clr Calc Pharmacy 43.1 ml/min; Est GFR (African American) 32.1 ml/min; Est GFR (Non-African American) 27.7 ml/min; Globulin 3.7 gm/dl (2.5-4.0); Magnesium 1.7 mg/dl (1.7-2.4); Total Protein 7.4 gm/dl (6.0-8.3)
[2023-03-05 04:06] LABS: INR 1.1 (0.9-1.1); Prothrombin Time 11.6 Seconds (9.0-12.0)
[2023-03-05] MEDS ORDERED: DOCUSATE SODIUM 100 MG CAP PO PRN (04:37)
[2023-03-05] MEDS ORDERED: DEXTROSE 50% 50 ML SYRINGE IV PRN (04:37)
[2023-03-05] MEDS ORDERED: DICYCLOMINE HCL 20 MG TAB PO PRN (04:37)
[2023-03-05] MEDS ORDERED: ALBUTEROL HFA 8 GM INHALER INH PRN (04:37)
[2023-03-05] MEDS ORDERED: PHARMACY GLYCEMIC MGMT CONSULT PRN (04:37)
[2023-03-05] MEDS ORDERED: CARBOHYDRATES FOR HYPOGLYCEMIA PO PRN (04:37)
[2023-03-05] MEDS ORDERED: MECLIZINE 12.5 MG TAB PO PRN (04:37)
[2023-03-05] MEDS ORDERED: GLUCOSE 40% GEL 15 GM TUBE PO PRN (04:37)
[2023-03-05] MEDS ORDERED: GLUCAGON FOR INJ 1 MG VIAL SQ PRN (04:37)
[2023-03-05] MEDS ORDERED: GLUCOSE 10 TAB/TUBE PO PRN (04:37)
[2023-03-05] MEDS: LEVOTHYROXINE SODIUM 200 MCG TABLET PO SCH (05:34)
[2023-03-05] MEDS: LEVOTHYROXINE SODIUM 50 MCG TABLET PO SCH (05:34)
--- NOTE | 2023-03-05 06:27 | History and Physical Report ---
DATE OF ADMISSION: 03/05/2023. CHIEF COMPLAINT: Generalized body aches, fibromyalgia. HISTORY OF PRESENT ILLNESS: This is a 67-year-old female with past medical history significant for chronic respiratory failure secondary to possible interstitial lung disease, on home oxygen all the time and sleep apnea, on CPAP at bedtime, chronic diastolic heart failure, peripheral vascular disease, hypertension, hyperlipidemia, diabetes, insulin requiring, chronic kidney disease, baseline creatinine 1.6, history of PE and DVT, status post IVC filter placement and on Eliquis, history of heparin-induced thrombocytopenia, history of hypothyroidism, past tobacco abuse, fibromyalgia, restless legs syndrome, comes because of ongoing body aches for several weeks. Says she is using tramadol and gabapentin at home and baclofen, but not helping and she is supposed to see pain management for shot in her back on 03/09/2023, but she has lot of pain and spasms and muscle soreness that is the reason she came here. She says she ambulates with a cane, but not able to ambulate much because of pain. Denies any chest pain or abdominal pain. No nausea, no fevers, no headache, no blurred visions, no runny nose, no sore throat. Says appetite is down. . She recently had some yeast in the urine, but it is improving. Denies any diarrhea. Has some constipation. Somewhat tearful, asking for pain medication. She says that she cannot take morphine, but she states she can take fentanyl. ALLERGIES: MORPHINE, TETANUS TOXOID, WELLBUTRIN, CODEINE, JARDIANCE, HEPARIN, VICODIN. PAST MEDICAL HISTORY: As mentioned above. PAST SURGICAL HISTORY: Right total knee arthroplasty, colonoscopy, tracheostomy, lumbar spine shots, left knee arthroscopy, gastrostomy, thyroidectomy, cholecystectomy, repair of incisional hernia, revision of colostomy, sacroiliac joint shots,perforation right colon with colostomy, IVC filter placement. MEDICATIONS: The patient seems to be on albuterol 2 puffs inhalation every 4 hours p.r.n., baclofen 5 mg p.o. b.i.d. p.r.n., Klonopin 0.5 mg p.o. b.i.d. p.r.n., dicyclomine 20 mg p.o. q.i.d. p.r.n., Colace 100 mg p.o. b.i.d. p.r.n., duloxetine 60 mg p.o. a.m., Eliquis 5 mg p.o. b.i.d., Lasix 60 mg p.o. b.i.d., gabapentin 300 mg p.o. t.i.d., NovoLog FlexPen as directed, insulin degludec 60 units subcutaneously at bedtime, levothyroxine 250 mcg p.o. daily, magnesium oxide 400 mg p.o. b.i.d., meclizine 12.5 mg p.o. t.i.d. p.r.n., metformin 500 mg p.o. a.m., omeprazole 20 mg p.o. at bedtime, potassium chloride 20 mEq p.o. b.i.d., ropinirole 2 mg p.o. at bedtime, tramadol 50 mg p.o. t.i.d. p.r.n., trazodone 100 mg p.o. at bedtime, Trulicity 4.5 mg subcutaneous weekly. FAMILY HISTORY: Significant for father had COPD, father had lung cancer. Paternal grandfather had bone cancer. Mother had liver cancer. Paternal grandmother had diabetes. Brother of heart disorder. SOCIAL HISTORY: Quit smoking in 1996, smoked 1 pack a day for 15 years. Alcohol, rarely. No drug use. REVIEW OF SYSTEMS: As per HPI. Rest of the review of systems is negative. PHYSICAL EXAMINATION: GENERAL: The patient is morbidly obese Tearful from pain. VITAL SIGNS: Temperature 37.2, pulse 95, respiratory rate 22, blood pressure 127/69, oxygen 97% on 3 liters. HEENT: Pupils equal, round and reactive to light. Oral mucosa dry. NECK: No JVD, no neck masses. CARDIOVASCULAR: S1 and S2 heard. Regular rate and rhythm. No murmur, no gallop. RESPIRATORY SYSTEM: Normal AP diameter. No accessory muscle use. No wheezing, no crackles. ABDOMEN: Soft, bowel sounds present. Diffuse tenderness. No guarding. No distention. CENTRAL NERVOUS SYSTEM: Alert and oriented. Somewhat irritable. Speech is clear. No facial droop. Obeys simple commands. Moves extremities. EXTREMITIES: Lower extremity edema present, right greater than left. LABORATORY DATA: WBC 14.7, hemoglobin 12, hematocrit 37.3, platelets 265. PT 11.6, INR 1.1. Sodium 135, potassium 4, chloride 94, CO2 of 32, BUN 32, creatinine 1.8, serum glucose 160, calcium 8.9, magnesium 1.7, total bilirubin 0.5, AST 19, ALT 10, alkaline phosphatase 86, total creatine kinase is 110. SARS-COVID rapid test negative. ASSESSMENT AND PLAN: A 67-year-old female who presents with generalized body aches. 1. Generalized body aches .muscle soreness, back pain, history of fibromyalgia The patient is allergic to morphine. Says She can take fentanyl,. Will continue her home tramadol p.r.n. and place her on IV Toradol p.r.n. and monitor. If not getting better, Will consult pain management. 2. History of chronic respiratory failure, possibly secondary to interstitial lung disease, on home oxygen. 3. History of obstructive sleep apnea, on CPAP at bedtime. 4. Leukocytosis, possible right lower extremity cellulitis. We will empirically place on Rocephin. 5. Chronic diastolic congestive heart failure. Continue her home Lasix. 6. Chronic kidney disease. Currently creatinine 1.8, baseline creatinine 1.5. We will continue very gentle fluids. If worsening, we will hold the Lasix. 7. Morbid obesity. She needs counseling. 8. Diabetes. Continue home long-acting insulin sliding scale. Follow blood sugars. Diabetic pharmacy consult. 9. Fibromyalgia, mood disorder. Continue duloxetine, gabapentin, Klonopin p.r.n. 10. Chronic pain. Continue home tramadol p.r.n. 11. Deep venous thrombosis prophylaxis. The patient has history of deep venous thrombosis and pulmonary embolus, on Eliquis. CODE STATUS: Full code. DISPOSITION: Closely monitor in the medical floor. PT/OT prior to discharge. Social service to help with discharge planning. Job ID: [id number] [facility]
[2023-03-05 08:27] LABS: Basophils # (auto) 0.03 K/uL (0-0.2); Basophils % (auto) 0.2 %; Eosinophils # (auto) 0.04 K/uL (0-0.50); Eosinophils % (auto) 0.3 %; Hematocrit (blood only) 37.3 % (37.0-47.0); Hemoglobin 12.3 g/dl (12.0-16.0); Immature Granulocytes # (auto) 0.17 K/uL (0.01-0.20); Immature Granulocytes % (auto) 1.4 %; Lymphocytes # (auto) 0.95 K/uL (1.2-3.4); Lymphocytes % (auto) 7.7 %; Mean Corpuscular Hemoglobin 30.5 pg (25.0-34.0); Mean Corpuscular Volume 92.6 fL (80.0-100.0); Monocytes # (auto) 0.16 K/uL (0.11-0.59); Monocytes % (auto) 1.3 %; Neutrophils # (auto) 10.93 K/uL (1.40-6.50); Neutrophils % (auto) 89.1 %; Platelet Count 259 K/uL (130-400); RDW Coefficient of Variation 14.2 % (11.5-14.5); RDW Standard Deviation 48.3 fL (36.4-46.3); Red Blood Count 4.03 M/uL (4.20-5.40); White Blood Count 12.28 K/ul (4.8-10.8)
[2023-03-05] MEDS: BACLOFEN 10 MG TAB PO PRN (08:43)
[2023-03-05] MEDS: POTASSIUM CHLORIDE CRTAB 20 MEQ TABCR PO SCH ×2 (08:43→20:32)
[2023-03-05] MEDS: GABAPENTIN 300 MG CAP PO SCH ×3 (08:43→20:34)
[2023-03-05] MEDS: clonazePAM 0.5 MG TAB PO PRN ×2 (08:43→20:43)
[2023-03-05] MEDS: MAGNESIUM OXIDE 400 MG TAB PO SCH ×2 (08:44→20:32)
[2023-03-05] MEDS: FUROSEMIDE 20 MG TAB PO SCH ×2 (08:44→20:34)
[2023-03-05] MEDS: APIXABAN 5 MG TABLET PO SCH ×2 (08:44→20:33)
[2023-03-05] MEDS: DULoxetine HCL 60 MG CAP PO SCH (08:45)
[2023-03-05] MEDS: KETOROLAC TROMETHAMINE 15 MG/ML VIAL IV PRN ×3 (08:46→21:59)
[2023-03-05] MEDS: INSULIN ASPART PER UNIT CHARGE SC SCH ×4 (08:47→20:42)
[2023-03-05 08:49] LABS: Calcium 9.1 mg/dl (8.6-10.3); Creatinine Clr Calc Pharmacy 46.7 ml/min; Est GFR (African American) 34.3 ml/min; Est GFR (Non-African American) 29.6 ml/min; Magnesium 1.8 mg/dl (1.7-2.4); Potassium 4.7 mmol/L (3.5-5.1)
[2023-03-05] MEDS: cefTRIAXone SODIUM 2,000 MG in DEXTROSE 5% 50 ML IV SCH (08:50)
[2023-03-05] MEDS ORDERED: LANTUS PER UNIT CHARGE SC ONE (09:00)
[2023-03-05 09:15] LABS: Estimated Average Glucose 157 mg/dl; Hemoglobin A1C 7.1 % (4.5-5.6)
[2023-03-05] MEDS: ONDANSETRON 2 MG OD TAB PO PRN (11:56)
[2023-03-05] MEDS ORDERED: INSULIN HUMAN REGULAR PER UNIT 8 UNITS in SYRINGE 7.92 ML IV ONE (12:15)
[2023-03-05] MEDS: traMADol HCL 50 MG TABLET PO PRN ×2 (12:50→20:24)
[2023-03-05] MEDS ORDERED: INSULIN ASPART PER UNIT CHARGE SC ONE (15:00)
[2023-03-05] MEDS: SODIUM CHLORIDE 0.65% NA SOLN 45 ML (OCEAN) PRN (17:04)
[2023-03-05] MEDS: SODIUM CHLORIDE 0.9% 1000ML 1,000 ML IV SCH (17:29)
[2023-03-05] MEDS: PANTOprazole 40 MG TAB PO SCH (20:33)
[2023-03-05] MEDS: traZODone HCL 100 MG TAB PO SCH (20:33)
[2023-03-05] MEDS: rOPINIRole HCL 2 MG TABLET PO SCH (20:33)
[2023-03-05] MEDS: traZODone HCL 50 MG TAB PO SCH (20:33)
[2023-03-05] MEDS ORDERED: LANTUS PER UNIT CHARGE SC SCH (21:00)
[2023-03-05] MEDS ORDERED: NON-FORMULARY MEDICATION (Insulin Degludec [Tresiba Flextouch U-100] 100 unit/mL (3 mL) In SQ SCH (21:00)
[2023-03-05] MEDS ORDERED: KETOROLAC TROMETHAMINE 15 MG/ML VIAL IV ONE (23:35)
[2023-03-06] MEDS: INSULIN ASPART PER UNIT CHARGE SC SCH ×6 (00:01→21:08)
[2023-03-06] MEDS: LIDOCAINE 5% 1 PATCH TD SCH (00:02)
[2023-03-06] MEDS: traMADol HCL 50 MG TABLET PO PRN ×3 (04:11→20:53)
[2023-03-06] MEDS: LEVOTHYROXINE SODIUM 50 MCG TABLET PO SCH (06:20)
[2023-03-06 06:21] LABS: BUN Creatinine Ratio 25.3 (10-20); Est GFR (African American) 31.1 ml/min; Est GFR (Non-African American) 26.8 ml/min; Potassium 4.5 mmol/L (3.5-5.1)
[2023-03-06] MEDS: LEVOTHYROXINE SODIUM 200 MCG TABLET PO SCH (06:21)
[2023-03-06 07:57] LABS: Appearance Urine Cloudy (Clear); Bilirubin Urine Negative (Negative); Blood Urine Negative (Negative); Color Urine Yellow; Epithelial Cell Urine Auto >30 /lpf (0-5); Glucose Urine UA Negative (Negative); Ketones Urine Negative (Negative); Leukocyte Esterase Urine 2+ (Negative); Nitrite Urine Negative (Negative); Protein Urine Negative (Negative); RBC Urine Automated 0-4 /hpf (0-4); Specific Gravity Urine 1.013 (1.000-1.030); Urobilinogen Urine Negative (Negative); WBC Urine Automated >30 /hpf (0-5)
[2023-03-06] MEDS: SODIUM CHLORIDE 0.9% 1000ML 1,000 ML IV SCH (08:01)
[2023-03-06] MEDS: POTASSIUM CHLORIDE CRTAB 20 MEQ TABCR PO SCH ×2 (08:05→20:53)
[2023-03-06] MEDS: GABAPENTIN 300 MG CAP PO SCH ×3 (08:05→20:55)
[2023-03-06] MEDS: FUROSEMIDE 20 MG TAB PO SCH ×2 (08:06→20:54)
[2023-03-06] MEDS: MAGNESIUM OXIDE 400 MG TAB PO SCH ×2 (08:07→20:54)
[2023-03-06] MEDS: DULoxetine HCL 60 MG CAP PO SCH (08:08)
[2023-03-06] MEDS: APIXABAN 5 MG TABLET PO SCH ×2 (08:08→20:55)
[2023-03-06 08:11] LABS: Bacteria Urine Automated 1+ (Negative)
[2023-03-06] MEDS: SODIUM CHLORIDE 0.65% NA SOLN 45 ML (OCEAN) PRN (08:22)
--- NOTE | 2023-03-06 08:24 | Hospitalist Progress Note ---
Date of Service March 06, 2023 Assessment & Plan (1) Back pain: Plan: A 67-year-old female who presents with generalized body aches. 1. Generalized body aches . - muscle soreness, back pain, history of fibromyalgia The patient is allergic to morphine. Says She can take fentanyl,. Will continue her home tramadol p.r.n. and place her on IV Toradol p.r.n. and monitor. If not getting better, Will consult pain management. Toradol now stopped d/t CKD Pt received 10 mg dexamethasone in ED Pt feels better but still uncomfortable. Has an outpt appointment w/ pain management scheduled 2. History of chronic respiratory failure, possibly secondary to interstitial lung disease, on home oxygen. 3. History of obstructive sleep apnea, on CPAP at bedtime. 4. Leukocytosis, possible right lower extremity cellulitis. empirically started Rocephin. Leg erythema improved. WBC improved. 5. Chronic diastolic congestive heart failure. Continue her home Lasix. 6. Chronic kidney disease. creatinine on admission 1.8, baseline creatinine 1.5. received gentle fluids. If worsening, we will hold the Lasix. 7. Morbid obesity. She needs counseling. 8. Diabetes. Continue home long-acting insulin sliding scale. Follow blood sugars. Diabetic pharmacy consult. 9. Fibromyalgia, mood disorder. Continue duloxetine, gabapentin, Klonopin p.r.n. 10. Chronic pain. Continue home tramadol p.r.n. DVT prophylaxis. The patient has history of DVT and pulmonary embolus, on Eliquis. DISPOSITION:medical floor. PT/OT prior to discharge. Full code. Admission and Anticipated Discharge Date Admission Date: March 05, 2023 Subjective Pt seen in follow-up of sciatica pain Laying in bed in NAD, continues to have pain, feels little more comfortable, and getting some sleep No fever, chills, chest pain, shortness of breath. No abd. pain. Review of Systems Review of Systems: All systems reviewed & are unremarkable except as noted in Subjective Physical Exam Physical Exam: GENERAL:morbidly obese F in NAD HEENT: NC/AT. Pupils equal, round and reactive to light. Oral mucosa dry. NECK: No JVD, no neck masses. CARDIOVASCULAR: S1 and S2 heard. Regular rate and rhythm. No murmur, no gallop. RESPIRATORY: Normal AP diameter. No accessory muscle use. No wheezing, no crackles. ABDOMEN: Soft, bowel sounds present. Diffuse tenderness. No guarding. No distention. NEURO: Alert and oriented. Somewhat irritable. Speech is clear. No facial droop.Obeys simple commands. Moves extremities. EXTREMITIES: + Lower extremity edema, right greater than left. Results & Data Results & Data Vital Signs (Past 12 Hours) Vital Signs Temp Pulse Pulse Resp BP Pulse Ox O2 Del Method 03/06/23 08:14 36.4 C L 75 16 163/69 H 97 Nasal Cannula 03/06/23 02:14 14 96 03/06/23 00:06 72 20 125/67 98 Nasal Cannula, CPAP 03/05/23 22:27 36.6 C 83 22 105/51 L 96 Nasal Cannula 03/05/23 22:23 76 25 H 96 O2 Flow Rate 03/06/23 08:14 3 03/06/23 02:14 2 03/06/23 00:06 3 03/05/23 22:27 3 03/05/23 22:23 2 Laboratory Results 03/06/23 03/06/23 03/06/23 Range/Units Unknown 08:04 05:27 WBC (4.8-10.8) K/ul RBC (4.20-5.40) M/uL Hgb (12.0-16.0) g/dl Hct (37.0-47.0) % MCV (80.0-100.0) fL MCH (25.0-34.0) pg MCHC (32.0-36.0) g/dL RDW Std Deviation (36.4-46.3) fL RDW Coeff of Adolfo (11.5-14.5) % Plt Count (130-400) K/uL MPV (9.4-12.4) fL Immature Gran % (Auto) % Neut % (Auto) % Lymph % (Auto) % [place] % (Auto) % Eos % (Auto) % Baso % (Auto) % Neut # (Auto) (1.40-6.50) K/uL Lymph # (Auto) (1.2-3.4) K/uL [place] # (Auto) (0.11-0.59) K/uL Eos # (Auto) (0-0.50) K/uL Baso # (Auto) (0-0.2) K/uL Immature Gran # (Auto) (0.01-0.20) K/uL Sodium 136 (136-145) mmol/L Potassium 4.5 (3.5-5.1) mmol/L Chloride 97 L (98-107) mmol/L Carbon Dioxide 31 (21-32) mmol/L Anion Gap 8 (3-11) BUN 48 H (6-23) mg/dl Creatinine 1.90 H (0.6-1.2) mg/dl Est Cr Clr Drug Dosing 43.0 ml/min Est GFR ( Amer) 31.1 ml/min Est GFR (Non-Af Amer) 26.8 ml/min BUN/Creatinine Ratio 25.3 H (10-20) Glucose 202 H (70-99(Fasting)) mg/dl POC Glucose 218 H (70-99) mg/dl Estimat Average Glucose mg/dl Hemoglobin A1c (4.5-5.6) % Calcium 9.0 (8.6-10.3) mg/dl Magnesium 2.0 (1.7-2.4) mg/dl Urine Color Yellow Urine Appearance Cloudy A (Clear) Urine pH 5.0 (4.5-7.5) Ur Specific [place] 1.013 (1.000-1.030) Urine Protein Negative (Negative) Urine Glucose (UA) Negative (Negative) Urine Ketones Negative (Negative) Urine Blood Negative (Negative) Urine Nitrite Negative (Negative) Urine Bilirubin Negative (Negative) Urine Urobilinogen Negative (Negative) Ur Leukocyte Esterase 2+ H (Negative) Urine WBC (Auto) >30 H (0-5) /hpf Urine RBC (Auto) 0-4 (0-4) /hpf U Hyaline Cast (Auto) 1-5 (0-5) /lpf U Epithel Cells (Auto) >30 H (0-5) /lpf Urine Bacteria (Auto) 1+ H (Negative) Ur Renal Epithelial Cell Not Reportable Other Crystals Talc (None Prsent) 03/06/23 03/05/23 03/05/23 Range/Units 03:58 23:57 20:31 WBC (4.8-10.8) K/ul RBC (4.20-5.40) M/uL Hgb (12.0-16.0) g/dl Hct (37.0-47.0) % MCV (80.0-100.0) fL MCH (25.0-34.0) pg MCHC (32.0-36.0) g/dL RDW Std Deviation (36.4-46.3) fL RDW Coeff of Adolfo (11.5-14.5) % Plt Count (130-400) K/uL MPV (9.4-12.4) fL Immature Gran % (Auto) % Neut % (Auto) % Lymph % (Auto) % [place] % (Auto) % Eos % (Auto) % Baso % (Auto) % Neut # (Auto) (1.40-6.50) K/uL Lymph # (Auto) (1.2-3.4) K/uL [place] # (Auto) (0.11-0.59) K/uL Eos # (Auto) (0-0.50) K/uL Baso # (Auto) (0-0.2) K/uL Immature Gran # (Auto) (0.01-0.20) K/uL Sodium (136-145) mmol/L Potassium (3.5-5.1) mmol/L Chloride (98-107) mmol/L Carbon Dioxide (21-32) mmol/L Anion Gap (3-11) BUN (6-23) mg/dl Creatinine (0.6-1.2) mg/dl Est Cr Clr Drug Dosing ml/min Est GFR ( Amer) ml/min Est GFR (Non-Af Amer) ml/min BUN/Creatinine Ratio (10-20) Glucose (70-99(Fasting)) mg/dl POC Glucose 195 H 242 H 221 H (70-99) mg/dl Estimat Average Glucose mg/dl Hemoglobin A1c (4.5-5.6) % Calcium (8.6-10.3) mg/dl Magnesium (1.7-2.4) mg/dl Urine Color Urine Appearance (Clear) Urine pH (4.5-7.5) Ur Specific [place] (1.000-1.030) Urine Protein (Negative) Urine Glucose (UA) (Negative) Urine Ketones (Negative) Urine Blood (Negative) Urine Nitrite (Negative) Urine Bilirubin (Negative) Urine Urobilinogen (Negative) Ur Leukocyte Esterase (Negative) Urine WBC (Auto) (0-5) /hpf Urine RBC (Auto) (0-4) /hpf U Hyaline Cast (Auto) (0-5) /lpf U Epithel Cells (Auto) (0-5) /lpf Urine Bacteria (Auto) (Negative) Ur Renal Epithelial Cell Other Crystals (None Prsent) 03/05/23 03/05/23 03/05/23 Range/Units 16:56 14:44 14:41 WBC (4.8-10.8) K/ul RBC (4.20-5.40) M/uL Hgb (12.0-16.0) g/dl Hct (37.0-47.0) % MCV (80.0-100.0) fL MCH (25.0-34.0) pg MCHC (32.0-36.0) g/dL RDW Std Deviation (36.4-46.3) fL RDW Coeff of Adolfo (11.5-14.5) % Plt Count (130-400) K/uL MPV (9.4-12.4) fL Immature Gran % (Auto) % Neut % (Auto) % Lymph % (Auto) % [place] % (Auto) % Eos % (Auto) % Baso % (Auto) % Neut # (Auto) (1.40-6.50) K/uL Lymph # (Auto) (1.2-3.4) K/uL [place] # (Auto) (0.11-0.59) K/uL Eos # (Auto) (0-0.50) K/uL Baso # (Auto) (0-0.2) K/uL Immature Gran # (Auto) (0.01-0.20) K/uL Sodium (136-145) mmol/L Potassium (3.5-5.1) mmol/L Chloride (98-107) mmol/L Carbon Dioxide (21-32) mmol/L Anion Gap (3-11) BUN (6-23) mg/dl Creatinine (0.6-1.2) mg/dl Est Cr Clr Drug Dosing ml/min Est GFR ( Amer) ml/min Est GFR (Non-Af Amer) ml/min BUN/Creatinine Ratio (10-20) Glucose (70-99(Fasting)) mg/dl POC Glucose 288 H 311 H* 346 H* (70-99) mg/dl Estimat Average Glucose mg/dl Hemoglobin A1c (4.5-5.6) % Calcium (8.6-10.3) mg/dl Magnesium (1.7-2.4) mg/dl Urine Color Urine Appearance (Clear) Urine pH (4.5-7.5) Ur Specific [place] (1.000-1.030) Urine Protein (Negative) Urine Glucose (UA) (Negative) Urine Ketones (Negative) Urine Blood (Negative) Urine Nitrite (Negative) Urine Bilirubin (Negative) Urine Urobilinogen (Negative) Ur Leukocyte Esterase (Negative) Urine WBC (Auto) (0-5) /hpf Urine RBC (Auto) (0-4) /hpf U Hyaline Cast (Auto) (0-5) /lpf U Epithel Cells (Auto) (0-5) /lpf Urine Bacteria (Auto) (Negative) Ur Renal Epithelial Cell Other Crystals (None Prsent) 03/05/23 03/05/23 03/05/23 Range/Units 11:50 11:49 08:13 WBC (4.8-10.8) K/ul RBC (4.20-5.40) M/uL Hgb (12.0-16.0) g/dl Hct (37.0-47.0) % MCV (80.0-100.0) fL MCH (25.0-34.0) pg MCHC (32.0-36.0) g/dL RDW Std Deviation (36.4-46.3) fL RDW Coeff of Adolfo (11.5-14.5) % Plt Count (130-400) K/uL MPV (9.4-12.4) fL Immature Gran % (Auto) % Neut % (Auto) % Lymph % (Auto) % [place] % (Auto) % Eos % (Auto) % Baso % (Auto) % Neut # (Auto) (1.40-6.50) K/uL Lymph # (Auto) (1.2-3.4) K/uL [place] # (Auto) (0.11-0.59) K/uL Eos # (Auto) (0-0.50) K/uL Baso # (Auto) (0-0.2) K/uL Immature Gran # (Auto) (0.01-0.20) K/uL Sodium (136-145) mmol/L Potassium (3.5-5.1) mmol/L Chloride (98-107) mmol/L Carbon Dioxide (21-32) mmol/L Anion Gap (3-11) BUN (6-23) mg/dl Creatinine (0.6-1.2) mg/dl Est Cr Clr Drug Dosing ml/min Est GFR ( Amer) ml/min Est GFR (Non-Af Amer) ml/min BUN/Creatinine Ratio (10-20) Glucose (70-99(Fasting)) mg/dl POC Glucose 371 H* 356 H* (70-99) mg/dl Estimat Average Glucose 157 mg/dl Hemoglobin A1c 7.1 H (4.5-5.6) % Calcium (8.6-10.3) mg/dl Magnesium (1.7-2.4) mg/dl Urine Color Urine Appearance (Clear) Urine pH (4.5-7.5) Ur Specific [place] (1.000-1.030) Urine Protein (Negative) Urine Glucose (UA) (Negative) Urine Ketones (Negative) Urine Blood (Negative) Urine Nitrite (Negative) Urine Bilirubin (Negative) Urine Urobilinogen (Negative) Ur Leukocyte Esterase (Negative) Urine WBC (Auto) (0-5) /hpf Urine RBC (Auto) (0-4) /hpf U Hyaline Cast (Auto) (0-5) /lpf U Epithel Cells (Auto) (0-5) /lpf Urine Bacteria (Auto) (Negative) Ur Renal Epithelial Cell Other Crystals (None Prsent) 03/05/23 03/05/23 Range/Units 08:13 08:13 WBC 12.28 H (4.8-10.8) K/ul RBC 4.03 L (4.20-5.40) M/uL Hgb 12.3 (12.0-16.0) g/dl Hct 37.3 (37.0-47.0) % MCV 92.6 (80.0-100.0) fL MCH 30.5 (25.0-34.0) pg MCHC 33.0 (32.0-36.0) g/dL RDW Std Deviation 48.3 H (36.4-46.3) fL RDW Coeff of Adolfo 14.2 (11.5-14.5) % Plt Count 259 (130-400) K/uL MPV 10.0 (9.4-12.4) fL Immature Gran % (Auto) 1.4 % Neut % (Auto) 89.1 % Lymph % (Auto) 7.7 % [place] % (Auto) 1.3 % Eos % (Auto) 0.3 % Baso % (Auto) 0.2 % Neut # (Auto) 10.93 H (1.40-6.50) K/uL Lymph # (Auto) 0.95 L (1.2-3.4) K/uL [place] # (Auto) 0.16 (0.11-0.59) K/uL Eos # (Auto) 0.04 (0-0.50) K/uL Baso # (Auto) 0.03 (0-0.2) K/uL Immature Gran # (Auto) 0.17 (0.01-0.20) K/uL Sodium 134 L (136-145) mmol/L Potassium 4.7 (3.5-5.1) mmol/L Chloride 95 L (98-107) mmol/L Carbon Dioxide 31 (21-32) mmol/L Anion Gap 8 (3-11) BUN 35 H (6-23) mg/dl Creatinine 1.75 H (0.6-1.2) mg/dl Est Cr Clr Drug Dosing 46.7 ml/min Est GFR ( Amer) 34.3 ml/min Est GFR (Non-Af Amer) 29.6 ml/min BUN/Creatinine Ratio 20.0 (10-20) Glucose 311 H* (70-99(Fasting)) mg/dl POC Glucose (70-99) mg/dl Estimat Average Glucose mg/dl Hemoglobin A1c (4.5-5.6) % Calcium 9.1 (8.6-10.3) mg/dl Magnesium 1.8 (1.7-2.4) mg/dl Urine Color Urine Appearance (Clear) Urine pH (4.5-7.5) Ur Specific [place] (1.000-1.030) Urine Protein (Negative) Urine Glucose (UA) (Negative) Urine Ketones (Negative) Urine Blood (Negative) Urine Nitrite (Negative) Urine Bilirubin (Negative) Urine Urobilinogen (Negative) Ur Leukocyte Esterase (Negative) Urine WBC (Auto) (0-5) /hpf Urine RBC (Auto) (0-4) /hpf U Hyaline Cast (Auto) (0-5) /lpf U Epithel Cells (Auto) (0-5) /lpf Urine Bacteria (Auto) (Negative) Ur Renal Epithelial Cell Other Crystals (None Prsent) Medications Administered Current Inpatient Medications Acetaminophen (Acetaminophen 325 Mg Tab) 650 mg PO Q4H PRN PRN Reason: pain/fever Stop: 04/04/23 04:36 Albuterol (Albuterol Hfa 8 Gm Inhaler) 2 puffs INH Q4R PRN PRN Reason: Shortness Of Breath Or Wheezin Stop: 04/04/23 04:36 Apixaban (Apixaban 5 Mg Tablet) 5 mg PO BID ROBERT Stop: 04/04/23 08:59 Last Admin: 03/05/23 20:33 Dose: 5 mg Baclofen (Baclofen 10 Mg Tab) 5 mg PO BID PRN PRN Reason: Muscle Spasm Stop: 04/04/23 04:36 Last Admin: 03/05/23 08:43 Dose: 5 mg Clonazepam (Clonazepam 0.5 Mg Tab) 0.5 mg PO BID PRN PRN Reason: anxiety Stop: 04/04/23 04:36 Last Admin: 03/05/23 20:43 Dose: 0.5 mg Dextrose (Dextrose 50% 50 Ml Syringe) 25 - 50 ml IV UD PRN; Protocol PRN Reason: Hypoglycemia Protocol Stop: 04/04/23 04:36 Dicyclomine HCl (Dicyclomine Hcl 20 Mg Tab) 20 mg PO QID PRN PRN Reason: abdominal pain Stop: 04/04/23 04:36 Docusate Sodium (Docusate Sodium 100 Mg Cap) 100 mg PO BID PRN PRN Reason: Constipation Stop: 04/04/23 04:36 Last Admin: 03/05/23 08:43 Dose: 100 mg Duloxetine HCl (Duloxetine Hcl 60 Mg Cap) 60 mg PO QAM ROBERT Stop: 04/04/23 08:59 Last Admin: 03/05/23 08:45 Dose: 60 mg Furosemide (Furosemide 20 Mg Tab) 60 mg PO BID ROBERT Stop: 04/04/23 08:59 Last Admin: 03/05/23 20:34 Dose: 60 mg Gabapentin (Gabapentin 300 Mg Cap) 300 mg PO TID [facility] Stop: 04/04/23 08:59 Last Admin: 03/05/23 20:34 Dose: 300 mg Glucagon (Glucagon For Inj 1 Mg Vial) 1 mg SQ UD PRN; Protocol PRN Reason: Hypoglycemia Protocol Stop: 04/04/23 04:36 Glucose (Glucose 10 Tab/Tube) 4 - 8 tab PO UD PRN; Protocol PRN Reason: Hypoglycemia Treatment Stop: 04/04/23 04:36 Glucose (Glucose 40% Gel 15 Gm Tube) 15 - 30 gm PO UD PRN; Protocol PRN Reason: Hypoglycemia Protocol Stop: 04/04/23 04:36 Ceftriaxone Sodium 2,000 mg/ (Dextrose) 70 mls @ 100 mls/hr IV Q24H [facility]; Protocol Stop: 03/12/23 07:59 Last Infusion: 03/05/23 09:32 Dose: Infused Sodium Chloride (Nss 1000ml) 1,000 mls @ 80 mls/hr IV .[id number] [facility] Stop: 04/04/23 17:29 Last Admin: 03/05/23 17:29 Dose: 80 mls/hr Insulin Aspart (Insulin Aspart Per Unit Charge) 0 units SC ACHS [facility]; Protocol Stop: 04/04/23 07:29 Last Admin: 03/05/23 20:42 Dose: 9 units Insulin Glargine (Lantus Per Unit Charge) 20 units SC ONE ONE Stop: 03/06/23 09:01 Ketorolac Tromethamine (Ketorolac Tromethamine 15 Mg/Ml Vial) 15 mg IV Q6H PRN PRN Reason: Severe Pain (Scale 7, 8, 9,10) Stop: 03/10/23 04:36 Last Admin: 03/05/23 21:59 Dose: 15 mg Levothyroxine Sodium (Levothyroxine Sodium 200 Mcg Tablet) 200 mcg PO DAILYBB [facility] Stop: 04/04/23 06:29 Last Admin: 03/06/23 06:21 Dose: 200 mcg Levothyroxine Sodium (Levothyroxine Sodium 50 Mcg Tablet) 50 mcg PO DAILYBB [facility] Stop: 04/04/23 06:29 Last Admin: 03/06/23 06:20 Dose: 50 mcg Lidocaine (Lidocaine 5% 1 Patch) 1 patch TD Q24H [facility] Stop: 04/05/23 00:00 Last Admin: 03/06/23 00:02 Dose: 1 patch Magnesium Oxide (Magnesium Oxide 400 Mg Tab) 400 mg PO BID [facility] Stop: 04/04/23 08:59 Last Admin: 03/05/23 20:32 Dose: 400 mg Meclizine HCl (Meclizine 12.5 Mg Tab) 12.5 mg PO TID PRN PRN Reason: Dizziness Stop: 04/04/23 04:36 Miscellaneous (Carbohydrates For Hypoglycemia ) 15 - 30 gm PO UD PRN PRN Reason: Hypoglycemia Protocol Stop: 04/04/23 04:36 Miscellaneous (Remove Lidoderm Patch) 1 each N/A Q24H [facility] Stop: 04/05/23 11:59 Miscellaneous Information (Pharmacy Glycemic Mgmt Consult) 1 each N/A UD PRN PRN Reason: Consult Stop: 04/04/23 04:36 Ondansetron HCl (Ondansetron 2 Mg Od Tab) 2 mg PO Q4H PRN PRN Reason: Nausea And Vomiting Stop: 04/04/23 11:29 Last Admin: 03/05/23 11:56 Dose: 2 mg Pantoprazole Sodium (Pantoprazole 40 Mg Tab) 40 mg PO HS [facility]; Protocol Stop: 04/04/23 20:59 Last Admin: 03/05/23 20:33 Dose: 40 mg Polyethylene Glycol (Polyethylene (Miralax) 17 Gm Pack) 17 gm PO DAILY PRN PRN Reason: Constipation Stop: 04/04/23 04:36 Potassium Chloride (Potassium Chloride Crtab 20 Meq Tabcr) 20 meq PO BID [facility] Stop: 04/04/23 08:59 Last Admin: 03/05/23 20:32 Dose: 20 meq Ropinirole HCl (Ropinirole Hcl 2 Mg Tablet) 2 mg PO HS [facility] Stop: 04/04/23 20:59 Last Admin: 03/05/23 20:33 Dose: 2 mg Sodium Chloride (Sodium Chloride 0.65% Na Soln 45 Ml (Person)) 1 sprays NA TID PRN PRN Reason: Congestion Stop: 04/04/23 15:42 Last Admin: 03/05/23 17:04 Dose: 1 sprays Tramadol HCl (Tramadol Hcl 50 Mg Tablet) 50 mg PO TID PRN PRN Reason: Moderate Pain (Scale 4, 5, 6) Stop: 04/04/23 04:36 Last Admin: 03/06/23 04:11 Dose: 50 mg Trazodone HCl (Trazodone Hcl 50 Mg Tab) 50 mg PO [facility] Stop: 04/04/23 20:59 Last Admin: 03/05/23 20:33 Dose: 50 mg Trazodone HCl (Trazodone Hcl 100 Mg Tab) 100 mg PO [facility] Stop: 04/04/23 20:59 Last Admin: 03/05/23 20:33 Dose: 100 mg (1) Back pain Back pain laterality: bilateral Back pain location: low back pain Chronicity: acute Sciatica presence: unspecified whether sciatica present Qualified Code(s): M54.50 - Low back pain, unspecified
[2023-03-06] MEDS: clonazePAM 0.5 MG TAB PO PRN ×2 (08:43→20:53)
[2023-03-06] MEDS: ACETAMINOPHEN 325 MG TAB PO PRN ×2 (08:43→17:31)
[2023-03-06] MEDS: cefTRIAXone SODIUM 2,000 MG in DEXTROSE 5% 50 ML IV SCH (08:50)
[2023-03-06] MEDS ORDERED: LANTUS PER UNIT CHARGE SC ONE (09:00)
[2023-03-06] MEDS: ONDANSETRON 2 MG OD TAB PO PRN (12:58)
--- NOTE | 2023-03-06 15:20 | Pharmacy Report ---
Pharmacy Glycemic Short Note 2 - Date of Service March 06, 2023 - Glycemic Short BSG Results (Last 24 hours): 03/05/23 03/05/23 03/05/23 16:56 20:31 23:57 Glucose POC Glucose 288 H 221 H 242 H 03/06/23 03/06/23 03/06/23 03:58 05:27 08:04 Glucose 202 H POC Glucose 195 H 218 H 03/06/23 11:50 Glucose POC Glucose 234 H OUTPATIENT ANTIDIABETIC REGIMEN: * Tresiba 60 units SQ qHS * Novolog 40 units AC + correction factor 1:25 for BSG >150 * Trulicity SQ weekly on Sat * Metformin XR 500 mg PO qAM * A1c = 7.1% ASSESSMENT: * Stephanie is a 67 yo T2DM who presented with generalized body aches. * She was administered a one time dose of dexamethasone IV in the ED and experienced severe hyperglycemia after this. * During her last admission, she has required 40-55 units of basal insulin per day. Of note, she was not on steroids during this time. * An extra 20 units of Lantus was given yesterday morning in addition to an IV insulin bolus around lunchtime. * Fasting BSG of 218 mg/dL this morning. I suspect we are still seeing the effect of dexamethasone. I anticipate this to be improved tomorrow AM. * Persistent post prandial hyperglycemia. Tighten carb coverage. PLAN FOR INPATIENT GLYCEMIC CONTROL: * Hold outpatient oral diabetes medications * Basal insulin * Lantus 20 units SQ this morning * Lantus 45-55 units SQ tonight - per BSG scale * Bolus insulin * NovoLog per scale ACHS or Q6hrs while NPO * Goal Range: Low 110 mg/dL - High 140 mg/dL * Correction Factor: 10 mg/dL/unit * Nutritional / Prandial insulin per carb ratio of 1 unit per 2.5 grams CHO consumed
[2023-03-06] MEDS: FLUTICASONE PROPIONATE NA SPR 16 GM BTL SCH (20:06)
[2023-03-06] MEDS: traZODone HCL 50 MG TAB PO SCH (20:53)
[2023-03-06] MEDS: traZODone HCL 100 MG TAB PO SCH (20:54)
[2023-03-06] MEDS: PANTOprazole 40 MG TAB PO SCH (20:55)
[2023-03-06] MEDS: rOPINIRole HCL 2 MG TABLET PO SCH (20:55)
[2023-03-06] MEDS: LANTUS PER UNIT CHARGE SC SCH (21:08)
[2023-03-07] MEDS: LIDOCAINE 5% 1 PATCH TD SCH (00:20)
[2023-03-07] MEDS: ACETAMINOPHEN 325 MG TAB PO PRN ×3 (02:42→17:52)
[2023-03-07] MEDS: LEVOTHYROXINE SODIUM 200 MCG TABLET PO SCH (06:18)
[2023-03-07] MEDS: LEVOTHYROXINE SODIUM 50 MCG TABLET PO SCH (06:18)
[2023-03-07 07:16] LABS: Hematocrit (blood only) 36.6 % (37.0-47.0); Hemoglobin 11.7 g/dl (12.0-16.0); Mean Corpuscular Hemoglobin 30.4 pg (25.0-34.0); Mean Corpuscular Volume 95.1 fL (80.0-100.0); Platelet Count 280 K/uL (130-400); RDW Standard Deviation 48.4 fL (36.4-46.3); Red Blood Count 3.85 M/uL (4.20-5.40); White Blood Count 10.51 K/ul (4.8-10.8)
[2023-03-07 07:37] LABS: BUN Creatinine Ratio 26.4 (10-20); Calcium 8.6 mg/dl (8.6-10.3); Creatinine Clr Calc Pharmacy 38.5 ml/min; Est GFR (African American) 27.2 ml/min; Est GFR (Non-African American) 23.5 ml/min; Magnesium 2.1 mg/dl (1.7-2.4); Phosphorus 4.2 mg/dl (2.5-4.9); Potassium 4.1 mmol/L (3.5-5.1)
[2023-03-07] MEDS: cefTRIAXone SODIUM 2,000 MG in DEXTROSE 5% 50 ML IV SCH (08:32)
[2023-03-07] MEDS: traMADol HCL 50 MG TABLET PO PRN ×2 (08:39→19:29)
[2023-03-07] MEDS: INSULIN ASPART PER UNIT CHARGE SC SCH ×4 (08:41→20:57)
[2023-03-07] MEDS: FLUTICASONE PROPIONATE NA SPR 16 GM BTL SCH (09:23)
[2023-03-07] MEDS: MAGNESIUM OXIDE 400 MG TAB PO SCH ×2 (09:52→20:54)
[2023-03-07] MEDS: APIXABAN 5 MG TABLET PO SCH ×2 (09:52→20:54)
[2023-03-07] MEDS: clonazePAM 0.5 MG TAB PO PRN ×2 (09:52→20:52)
[2023-03-07] MEDS: GABAPENTIN 300 MG CAP PO SCH ×3 (09:52→20:54)
[2023-03-07] MEDS: DULoxetine HCL 60 MG CAP PO SCH (09:52)
[2023-03-07] MEDS: FUROSEMIDE 20 MG TAB PO SCH ×2 (09:52→20:53)
[2023-03-07] MEDS: POTASSIUM CHLORIDE CRTAB 20 MEQ TABCR PO SCH ×2 (09:52→20:55)
--- NOTE | 2023-03-07 12:13 | Psychiatric Consultation ---
Date of Consultation March 07, 2023 Impression / Recommendations Impression 67 yo woman with history of depression, chronic respiratory failure on home oxygen, ELISSA, chronic DHF, CKD, Type II diabetes, obesity, fibromyalgia and chronic pain admitted medically for worsening body aches and pain. Psychiatry consulted for suicide risk assessment. Diagnostically consistent with major depressive disorder versus adjustment disorder with depressed mood in context of increased chronic pain/medical issues; likely a combination of both. She made a statement of passive SI in the context of frustration due to heightened pain but now consistently denying SI. Acute risk of self-harm is low given denial of SI, strong deterrents to suicide, no history of prior attempts, no access to guns, feels well supported by family/friends, has outpatient therapy and understands crisis/emergency resources and feels safe in the hospital and at home. Chronic risk of self-harm is moderate given financial stressors, depression and chronic pain, counseled on ways to mitigate acute and chronic risks by re-engaging with her therapist (including discussing possibility to meet via phone if she can't physically attend in person session due to pain), increasing her duloxetine to further target depression, and discussing options for increasing mobility/access to social events and the pool with her providers regarding option for wheelchair or motor chair. (1) Major depression, recurrent: (2) Generalized body aches: (3) Sciatica: (4) Fibromyalgia: Plan -Consider increasing duloxetine to 90mg daily to further target depression and pain; given history of CHF consider rechecking EKG QTc in 1-2 weeks to ensure this remains normal -Agree with trazodone use -If duloxetine increase is ineffective for depression after 4-6 weeks then consider cross-taper to sertraline as she found this helpful in the past -Encourage exploration of option for wheelchair or other mobility devices to help her re-engage in social events and using the pool at her apartment Psych History Identifying Data 67 yo woman with history of depression, chronic respiratory failure on home oxygen, ELISSA, chronic DHF, CKD, Type II diabetes, obesity, fibromyalgia and chronic pain admitted medically for worsening body aches and pain. Psychiatry consulted for suicide risk assessment. Chief Complaint "I was just frustrated". History of Present Illness Stephanie reports making statement somewhat along the lines of "I should just " due to feeling frustrated by her level of pain this morning. She denies current SI, denies any plan nor intent, denies hx self-harm and states she would never attempt suicide. Cites strong deterrents and reasons for living including her cats, family, her own goals and desire to use the pool this summer and remain involved in activities in her building. Has been frustrated due to worsening pain and this limits her ability to be mobile and so has been more isolated at home. She wants to get into the pool at her building and attend social events again, is hopeful that she may be approved for a wheelchair or motor chair so she wouldn't be limited by her pain with mobility. She endorses some depression symptoms but discusses how many overlap significantly with her pain so difficult to know what drives the symptoms. She has an outpatient therapist Dr. Garcia but hasn't seen him in a few weeks due to her mobility issues. Was on a higher dose of duloxetine in the past and found that helpful for depression, would be interested in higher dose again. Finds trazodone very helpful for sleep. Psychiatric history notable for no prior suicide attempts, no family hx of suicide, no access to guns, no prior inpatient psychiatric admissions, hx zoloft trial in the past (worked well) and fluoxetine (didn't work). Allergies Allergy/AdvReac Type Severity Reaction Status Date / Time morphine Allergy Severe VIOLENT Verified 03/05/23 09:09 REACTION-"ALMOST " SWELLING dapagliflozin [From Farxiga] Allergy Intermediate YEAST Unverified 03/05/23 09:09 INFECTIONS tetanus toxoid, adsorbed Allergy Intermediate PASSED OUT Verified 03/05/23 09:09 AND GOT SICK WHEN A CHILD bupropion [From Wellbutrin] AdvReac Intermediate Recurrent Verified 03/05/23 09:09 falls as per patient codeine AdvReac Intermediate Hallucinati Verified 03/05/23 09:09 ons empagliflozin AdvReac Intermediate YEAST Verified 03/05/23 09:09 [From Jardiance] INFECTIONS heparin AdvReac Intermediate HIT; FLUID Verified 03/05/23 09:09 IN LUNGS hydrocodone [From Vicodin] AdvReac Intermediate sleepiness Verified 03/05/23 09:09 Home Medications Medication Instructions Recorded Confirmed Type levothyroxine 200 mcg tablet 200 mcg PO QAM 06/09/18 03/05/23 History omeprazole 20 mg capsule,delayed 20 mg PO QAM 06/09/18 03/05/23 History release duloxetine 60 mg capsule,delayed 60 mg PO QAM 12/23/18 03/05/23 History release insulin degludec 100 unit/mL (3 58 unit subcut HS 11/24/20 03/05/23 History mL) subcutaneous pen (Tresiba FlexTouch U-100 insulin) dicyclomine 20 mg tablet 20 mg PO QID PRN abdominal pain 03/27/21 03/05/23 History docusate sodium 100 mg capsule 100 mg PO BID PRN Constipation 03/27/21 03/05/23 History (Colace) insulin aspart U-100 100 unit/mL 40 unit subcut DIRECTED 03/27/21 03/05/23 History (3 mL) subcutaneous pen (Novolog FlexPen U-100 Insulin aspart) levothyroxine 50 mcg tablet 50 mcg PO QAM 03/27/21 03/05/23 History meclizine 12.5 mg tablet 12.5 mg PO TID PRN Dizziness 03/27/21 03/05/23 History clonazepam 0.5 mg tablet 0.5 mg PO BID PRN anxiety #0 tabs 03/28/21 03/05/23 Rx ropinirole 2 mg tablet 2 mg PO HS 09/20/21 03/05/23 History dulaglutide 4.5 mg/0.5 mL 4.5 mg subcut WK 10/15/21 03/05/23 History subcutaneous pen injector (Trulicity) potassium chloride 20 mEq 20 meq PO BID 07/14/22 03/05/23 History tablet,extended release(part/cryst) albuterol sulfate 90 mcg/actuation 2 inh inhalation Q4H PRN Shortness 07/15/22 03/05/23 History aerosol inhaler Of Breath Or Wheezing metformin 500 mg tablet,extended 500 mg PO QAM 07/15/22 03/05/23 History release 24 hr furosemide 40 mg tablet 60 mg PO BID #120 tabs 07/22/22 03/05/23 Rx magnesium oxide 400 mg (241.3 mg 400 mg PO BID 08/16/22 03/05/23 History magnesium) tablet acetaminophen 500 mg tablet 500 - 1,000 mg PO Q6H PRN Pain 03/05/23 03/05/23 History apixaban 5 mg tablet (Eliquis) 5 mg PO BID 03/05/23 03/05/23 History baclofen 5 mg tablet 5 mg PO BID PRN Muscle Spasm 03/05/23 03/05/23 History cholecalciferol (vitamin D3) 25 25 mcg PO QAM 03/05/23 03/05/23 History mcg (1,000 unit) capsule (Vitamin D3) gabapentin 300 mg capsule 300 mg PO TID 03/05/23 03/05/23 History tramadol 50 mg tablet 50 mg PO TID PRN Pain 03/05/23 03/05/23 History trazodone 100 mg tablet 100 mg PO HS 03/05/23 03/05/23 History Patient History Medical History Acute metabolic encephalopathy Carotid stenosis, right CHF (congestive heart failure) follows with Dr. Woodall CKD (chronic kidney disease), stage III follows with [facility] Depression with anxiety Diabetes mellitus, type II DVT (deep venous thrombosis) at present behind right knee, on Eliquis for this DVT prophylaxis Fibromyalgia Frequent UTI none at present that pt is aware of GERD (gastroesophageal reflux disease) History of DVT (deep vein thrombosis) 2008 due to being in ICU [place] due to pneumonia History of pulmonary embolism 2008 s/p zoraida filter HIT (heparin-induced thrombocytopenia) 2008, [facility] then life flight to [place] > resolved HLD (hyperlipidemia) HTN (hypertension) Hypothyroidism Morbid obesity Nausea and vomiting after administration of anesthetic agent Neuropathy bilat feet On home oxygen therapy 2-4 continuous ELISSA on CPAP Presence of IVC filter 2008 RLS (restless legs syndrome) Subclavian artery stenosis follows with Dr. Woodall with [facility] Surgical History History of arthroscopy left ankle History of cholecystectomy History of colon resection secondary to R colon perforation, resected treated with colostomy and eventual reversal in 2008, Dr. Lerma History of colonoscopy History of incisional hernia repair History of thyroidectomy, total 2010 History of tooth extraction History of total right knee replacement History of tracheostomy 2008, secondary to acute resp failure secondary to pneumonia, since reversed in 2010 Family History Father , age 74 Lung cancer Mother , age 45 Cirrhosis Social History Smoking Status: Never smoker Tobacco Type: Cigarettes Cigarettes Per Day: 15 pack year hx; Second Hand Exposure: No; Do You Dip or Chew Tobacco: No; Hx Alcohol Use: No Hx Substance Use: No Preferred Language: Qatari Communication Ability: Effective Stock Layer Required: No Beliefs That Will Affect Care: None marital status: Single Current Living Situation: Alone How many Children do You have: 0 Other Information That Helps Us Care for You: No Feels Safe at Home: Yes Safety Concerns: Feels Safe At This Time Assistive Devices: Cane, CPAP, Oxygen - Continuous and Walker Physical Exam Psychiatric: Orientation: alert and oriented x 3 Apperance: appropriately dressed and appropriately groomed Eye Contact: good eye contact Motor Behavior: no abnormal motor movements Speech: normal rate/rhythm/volume of speech Affect: + depressed affect and + anxious affect Mood: + depressed mood and + anxious mood Thought Process: goal directed thought process Thought Content: reality based without delusions Suicidal Thoughts: denies suicidal thoughts, denies suicidal plan and denies suicidal intent Homicidal Thoughts: denies homicidal thoughts Hallucinations: no auditory hallucinations and no visual hallucinations Cognition: recent memory grossly intact, remote memory grossly intact, attention grossly intact and language grossly intact Estimated Intelligence: consistent with education level Insight: + fair insight Judgment: + fair judgement Vital Signs (Past 24 Hours): Last Vital Signs Temp 36.6 C 03/07/23 07:52 Pulse 76 03/07/23 07:52 Resp 16 03/07/23 07:52 BP 154/86 H 03/07/23 07:52 Pulse Ox 97 03/07/23 07:52 O2 Del Method Nasal Cannula 03/07/23 08:20 O2 Flow Rate 3 03/07/23 08:20 Review of Systems All systems reviewed & are unremarkable except as noted in HPI & below (chronic pain) Results & Data (PSY) Laboratory Results Na+ normal Diagnostic Findings QTC normal on last EKG (09/19/2022) Medications Administered Acetaminophen (Acetaminophen 325 Mg Tab) 650 mg PO Q4H PRN PRN Reason: pain/fever Stop: 04/04/23 04:36 Last Admin: 03/07/23 12:03 Dose: 650 mg Documented By: Admin: 03/07/23 02:42 Dose: 650 mg Documented By: Admin: 03/06/23 17:31 Dose: 650 mg Documented By: Admin: 03/06/23 08:43 Dose: 650 mg Documented By: JESUS Apixaban (Apixaban 5 Mg Tablet) 5 mg PO BID ROBERT Stop: 04/04/23 08:59 Last Admin: 03/07/23 09:52 Dose: 5 mg Documented By: Admin: 03/06/23 20:55 Dose: 5 mg Documented By: Admin: 03/06/23 08:08 Dose: 5 mg Documented By: Admin: 03/05/23 20:33 Dose: 5 mg Documented By: Admin: 03/05/23 08:44 Dose: 5 mg Documented By: GISELLE Baclofen (Baclofen 10 Mg Tab) 5 mg PO BID PRN PRN Reason: Muscle Spasm Stop: 04/04/23 04:36 Last Admin: 03/05/23 08:43 Dose: 5 mg Documented By: GISELLE Clonazepam (Clonazepam 0.5 Mg Tab) 0.5 mg PO BID PRN PRN Reason: anxiety Stop: 04/04/23 04:36 Last Admin: 03/07/23 09:52 Dose: 0.5 mg Documented By: Admin: 03/06/23 20:53 Dose: 0.5 mg Documented By: Admin: 03/06/23 08:43 Dose: 0.5 mg Documented By: Admin: 03/05/23 20:43 Dose: 0.5 mg Documented By: Admin: 03/05/23 08:43 Dose: 0.5 mg Documented By: GISELLE Docusate Sodium (Docusate Sodium 100 Mg Cap) 100 mg PO BID PRN PRN Reason: Constipation Stop: 04/04/23 04:36 Last Admin: 03/05/23 08:43 Dose: 100 mg Documented By: GISELLE Duloxetine HCl (Duloxetine Hcl 60 Mg Cap) 60 mg PO QAM ROBERT Stop: 04/04/23 08:59 Last Admin: 03/07/23 09:52 Dose: 60 mg Documented By: Admin: 03/06/23 08:08 Dose: 60 mg Documented By: Admin: 03/05/23 08:45 Dose: 60 mg Documented By: GISELLE Fluticasone Propionate (Fluticasone Propionate Na Spr 16 Gm Btl) 2 sprays NA D AILY ROBERT Stop: 04/05/23 18:44 Last Admin: 03/07/23 09:23 Dose: 2 sprays Documented By: Admin: 03/06/23 20:06 Dose: 2 sprays Documented By: JERRY Furosemide (Furosemide 20 Mg Tab) 60 mg PO BID ROBERT Stop: 04/04/23 08:59 Last Admin: 03/07/23 09:52 Dose: 60 mg Documented By: Admin: 03/06/23 20:54 Dose: 60 mg Documented By: Admin: 03/06/23 08:06 Dose: 60 mg Documented By: Admin: 03/05/23 20:34 Dose: 60 mg Documented By: Admin: 03/05/23 08:44 Dose: 60 mg Documented By: GISELLE Gabapentin (Gabapentin 300 Mg Cap) 300 mg PO TID ROBERT Stop: 04/04/23 08:59 Last Admin: 03/07/23 09:52 Dose: 300 mg Documented By: Admin: 03/06/23 20:55 Dose: 300 mg Documented By: Admin: 03/06/23 12:59 Dose: 300 mg Documented By: Admin: 03/06/23 08:05 Dose: 300 mg Documented By: Admin: 03/05/23 20:34 Dose: 300 mg Documented By: Admin: 03/05/23 14:08 Dose: 300 mg Documented By: Admin: 03/05/23 08:43 Dose: 300 mg Documented By: GISELLE Ceftriaxone Sodium 2,000 mg/ (Dextrose) 70 mls @ 100 mls/hr IV Q24H ROBERT; Protocol Stop: 03/12/23 07:59 Last Infusion: 03/07/23 09:14 Dose: 0 mls/hr Documented By: Admin: 03/07/23 08:32 Dose: 100 mls/hr Documented By: Infusion: 03/06/23 12:37 Dose: 0 mls/hr Documented By: Admin: 03/06/23 08:50 Dose: 100 mls/hr Documented By: Infusion: 03/05/23 09:32 Dose: 0 mls/hr Documented By: Admin: 03/05/23 08:50 Dose: 100 mls/hr Documented By: GISELLE Sodium Chloride (Nss 1000ml) 1,000 mls @ 80 mls/hr IV .[id number] ROBERT Stop: 04/04/23 17:29 Last Infusion: 03/07/23 08:14 Dose: 0 mls/hr Documented By: Infusion: 03/06/23 16:15 Dose: 0 mls/hr Documented By: Admin: 03/06/23 08:01 Dose: 80 mls/hr Documented By: Infusion: 03/06/23 05:59 Dose: 80 mls/hr Documented By: Admin: 03/05/23 17:29 Dose: 80 mls/hr Documented By: GISELLE Insulin Aspart (Insulin Aspart Per Unit Charge) 0 units SC [facility]; Protocol Stop: 04/04/23 07:29 Last Admin: 03/07/23 08:41 Dose: 20 units Documented By: JANET Co-signed By: KEESHA Admin: 03/06/23 21:08 Dose: 7 units Documented By: JERRY Co-signed By: ORION Admin: 03/06/23 17:32 Dose: 17 units Documented By: JESUS Co-signed By: [facility] Admin: 03/06/23 12:56 Dose: 30 units Documented By: JESUS Co-signed By: [facility] Admin: 03/06/23 08:26 Dose: 37 units Documented By: JESUS Co-signed By: [facility] Admin: 03/05/23 20:42 Dose: 9 units Documented By: JERRY Co-signed By: WILLEM Admin: 03/05/23 17:29 Dose: 28 units Documented By: GISELLE Co-signed By: [facility] Admin: 03/05/23 12:50 Dose: 37 units Documented By: GISELLE Co-signed By: [facility] Admin: 03/05/23 08:47 Dose: 29 units Documented By: GISELLE Co-signed By: [facility] Insulin Glargine (Lantus Per Unit Charge) 0 units SC [facility]; Protocol Stop: 04/05/23 20:59 Last Admin: 03/06/23 21:08 Dose: 40 units Documented By: EKF Co-signed By: ORION Ketorolac Tromethamine (Ketorolac Tromethamine 15 Mg/Ml Vial) 15 mg IV Q6H PRN PRN Reason: Severe Pain (Scale 7, 8, 9,10) Stop: 03/10/23 04:36 Last Admin: 03/05/23 21:59 Dose: 15 mg Documented By: Admin: 03/05/23 14:35 Dose: 15 mg Documented By: Admin: 03/05/23 08:46 Dose: 15 mg Documented By: GISELLE Levothyroxine Sodium (Levothyroxine Sodium 200 Mcg Tablet) 200 mcg PO DAILYBB [facility] Stop: 04/04/23 06:29 Last Admin: 03/07/23 06:18 Dose: 200 mcg Documented By: Admin: 03/06/23 06:21 Dose: 200 mcg Documented By: Admin: 03/05/23 05:34 Dose: 200 mcg Documented By: LAURO Levothyroxine Sodium (Levothyroxine Sodium 50 Mcg Tablet) 50 mcg PO DAILYBB [facility] Stop: 04/04/23 06:29 Last Admin: 03/07/23 06:18 Dose: 50 mcg Documented By: Admin: 03/06/23 06:20 Dose: 50 mcg Documented By: Admin: 03/05/23 05:34 Dose: 50 mcg Documented By: LAURO Lidocaine (Lidocaine 5% 1 Patch) 1 patch TD Q24H [facility] Stop: 04/05/23 00:00 Last Admin: 03/07/23 00:20 Dose: 1 patch Documented By: Admin: 03/06/23 00:02 Dose: 1 patch Documented By: JERRY Magnesium Oxide (Magnesium Oxide 400 Mg Tab) 400 mg PO BID [facility] Stop: 04/04/23 08:59 Last Admin: 03/07/23 09:52 Dose: 400 mg Documented By: Admin: 03/06/23 20:54 Dose: 400 mg Documented By: Admin: 03/06/23 08:07 Dose: 400 mg Documented By: Admin: 03/05/23 20:32 Dose: 400 mg Documented By: Admin: 03/05/23 08:44 Dose: 400 mg Documented By: GISELLE Miscellaneous (Remove Lidoderm Patch) 1 each N/A Q24H [facility] Stop: 04/05/23 11:59 Last Admin: 03/07/23 10:17 Dose: 1 each Documented By: Admin: 03/06/23 12:58 Dose: 1 each Documented By: JESUS Ondansetron HCl (Ondansetron 2 Mg Od Tab) 2 mg PO Q4H PRN PRN Reason: Nausea And Vomiting Stop: 04/04/23 11:29 Last Admin: 03/06/23 12:58 Dose: 2 mg Documented By: Admin: 03/05/23 11:56 Dose: 2 mg Documented By: GISELLE Pantoprazole Sodium (Pantoprazole 40 Mg Tab) 40 mg PO [facility]; Protocol Stop: 04/04/23 20:59 Last Admin: 03/06/23 20:55 Dose: 40 mg Documented By: Admin: 03/05/23 20:33 Dose: 40 mg Documented By: JERRY Potassium Chloride (Potassium Chloride Crtab 20 Meq Tabcr) 20 meq PO BID [facility] Stop: 04/04/23 08:59 Last Admin: 03/07/23 09:52 Dose: 20 meq Documented By: Admin: 03/06/23 20:53 Dose: 20 meq Documented By: Admin: 03/06/23 08:05 Dose: 20 meq Documented By: Admin: 03/05/23 20:32 Dose: 20 meq Documented By: Admin: 03/05/23 08:43 Dose: 20 meq Documented By: GISELLE Ropinirole HCl (Ropinirole Hcl 2 Mg Tablet) 2 mg PO [facility] Stop: 04/04/23 20:59 Last Admin: 03/06/23 20:55 Dose: 2 mg Documented By: Admin: 03/05/23 20:33 Dose: 2 mg Documented By: JERRY Sodium Chloride (Sodium Chloride 0.65% Na Soln 45 Ml ([place])) 1 sprays NA TID PRN PRN Reason: Congestion Stop: 04/04/23 15:42 Last Admin: 03/06/23 08:22 Dose: 1 sprays Documented By: Admin: 03/05/23 17:04 Dose: 1 sprays Documented By: GISELLE Tramadol HCl (Tramadol Hcl 50 Mg Tablet) 50 mg PO TID PRN PRN Reason: Moderate Pain (Scale 4, 5, 6) Stop: 04/04/23 04:36 Last Admin: 03/07/23 08:39 Dose: 50 mg Documented By: Admin: 03/06/23 20:53 Dose: 50 mg Documented By: Admin: 03/06/23 13:02 Dose: 50 mg Documented By: Admin: 03/06/23 04:11 Dose: 50 mg Documented By: Admin: 03/05/23 20:24 Dose: 50 mg Documented By: Admin: 03/05/23 12:50 Dose: 50 mg Documented By: GISELLE Trazodone HCl (Trazodone Hcl 50 Mg Tab) 50 mg PO [facility] Stop: 04/04/23 20:59 Last Admin: 03/06/23 20:53 Dose: 50 mg Documented By: Admin: 03/05/23 20:33 Dose: 50 mg Documented By: EKF Trazodone HCl (Trazodone Hcl 100 Mg Tab) 100 mg PO [facility] Stop: 04/04/23 20:59 Last Admin: 03/06/23 20:54 Dose: 100 mg Documented By: Admin: 03/05/23 20:33 Dose: 100 mg Documented By: EKF Coding Level of Care Code 17612 IN/OBS CONSULT LVL 4,60M Diagnoses Major depression, recurrent F33.9 Generalized body aches R52 Sciatica M54.30 Fibromyalgia M79.7 Time Spent (min) 60
[2023-03-07] MEDS ORDERED: DULoxetine HCL 30 MG CAP PO ONE (13:00)
[2023-03-07] MEDS: BACLOFEN 10 MG TAB PO PRN ×2 (13:05→21:03)
[2023-03-07] MEDS: POLYETHYLENE (MIRALAX) 17 GM PACK PO PRN (13:06)
--- NOTE | 2023-03-07 19:18 | Hospitalist Progress Note ---
Date of Service March 07, 2023 Assessment & Plan (1) Back pain: Plan: A 67-year-old female who presents with generalized body aches. 1. Generalized body aches . - muscle soreness, back pain, history of fibromyalgia The patient is allergic to morphine. Says She can take fentanyl,. Continue her home tramadol p.r.n. and used IV Toradol p.r.n. while inpt, now stopped as Cr increased. Pt received 10 mg dexamethasone in ED, blood glc -then elevated, will give an other dose of dexamethsone (4 mg) as need to hold toradol Pt feels better but still uncomfortable. pain management consulted while inpt - pending Pt has an outpt appointment w/ pain management scheduled SI statements , Psychatry consulted Depression - MDD vs. adjustment d/o -Recommend to increase duloxetine from 60 mg to 90 mg to help with depressive symptoms and pain -given history of CHF consider rechecking EKG QTc in 1-2 weeks to ensure this remains normal -Agree with trazodone use -If duloxetine increase is ineffective for depression after 4-6 weeks then c onsider cross-taper to sertraline as she found this helpful in the past -Encourage exploration of option for wheelchair or other mobility devices to help her re-engage in social events and using the pool at her apartment 2. History of chronic respiratory failure, possibly secondary to interstitial lung disease, on home oxygen. 3. History of obstructive sleep apnea, on CPAP at bedtime. 4. Leukocytosis, possible right lower extremity cellulitis. empirically started Rocephin. Leg erythema improved. WBC improved. 5. Chronic diastolic congestive heart failure. Continue her home Lasix. 6. Chronic kidney disease. creatinine on admission 1.8, baseline creatinine 1.5. received gentle fluids. If worsening, we will hold the Lasix. 7. Morbid obesity. She needs counseling. 8. Diabetes. Continue home long-acting insulin sliding scale. Follow blood sugars. Diabetic pharmacy consult. 9. Fibromyalgia, mood disorder. Continue duloxetine, gabapentin, Klonopin p.r.n. 10. Chronic pain. Continue home tramadol p.r.n. DVT prophylaxis. The patient has history of DVT and pulmonary embolus, on Eliquis. DISPOSITION:medical floor. PT/OT prior to discharge. Full code. Admission and Anticipated Discharge Date Admission Date: March 05, 2023 Subjective Pt seen in follow-up of sciatica pain Laying in bed in NAD, continues to have pain, feels little more comfortable, and getting some sleep No fever, chills, chest pain, shortness of breath. No abd. pain. Patient made SI statements to nursing staff, psychiatry was consulted. Unable to give Toradol due to ELSIE. Management consulted. Discussed possible bariatric wheelchair, CM aware Review of Systems Review of Systems: All systems reviewed & are unremarkable except as noted in Subjective Physical Exam Physical Exam: GENERAL:morbidly obese F in NAD HEENT: NC/AT. Pupils equal, round and reactive to light. Oral mucosa dry. NECK: No JVD, no neck masses. CARDIOVASCULAR: S1 and S2 heard. Regular rate and rhythm. No murmur, no gallop. RESPIRATORY: Normal AP diameter. No accessory muscle use. No wheezing, no crackles. ABDOMEN: Soft, bowel sounds present. Diffuse tenderness. No guarding. No distention. NEURO: Alert and oriented. Somewhat irritable. Speech is clear. No facial droop.Obeys simple commands. Moves extremities. EXTREMITIES: + Lower extremity edema, right greater than left. Results & Data Results & Data Vital Signs (Past 12 Hours) Vital Signs Temp Pulse Pulse Resp BP Pulse Ox O2 Del Method 03/07/23 16:20 36.3 C L 75 18 151/70 H 99 Nasal Cannula 03/07/23 08:20 Nasal Cannula 03/07/23 07:52 36.6 C 76 16 154/86 H 97 Nasal Cannula O2 Flow Rate 03/07/23 16:20 3 03/07/23 08:20 3 03/07/23 07:52 3 (1) Back pain Back pain laterality: bilateral Back pain location: low back pain Chronicity: acute Sciatica presence: unspecified whether sciatica present Qualified Code(s): M54.50 - Low back pain, unspecified
[2023-03-07] MEDS ORDERED: dexAMETHasone 4 MG TAB PO ONE (19:45)
[2023-03-07] MEDS: traZODone HCL 100 MG TAB PO SCH (20:52)
[2023-03-07] MEDS: traZODone HCL 50 MG TAB PO SCH (20:52)
[2023-03-07] MEDS: rOPINIRole HCL 2 MG TABLET PO SCH (20:53)
[2023-03-07] MEDS: PANTOprazole 40 MG TAB PO SCH (20:54)
[2023-03-07] MEDS: LANTUS PER UNIT CHARGE SC SCH (20:56)
[2023-03-08] MEDS: LIDOCAINE 5% 1 PATCH TD SCH (00:14)
[2023-03-08] MEDS: ACETAMINOPHEN 325 MG TAB PO PRN (00:19)
[2023-03-08] MEDS ORDERED: fentaNYL citrate PF 100 MCG/2 ML VIAL IV ONE (01:59)
[2023-03-08] MEDS ORDERED: HYDROmorphone INJ 0.5 MG/0.5 ML SYR IV STA (02:12)
[2023-03-08] MEDS: LEVOTHYROXINE SODIUM 50 MCG TABLET PO SCH (05:40)
[2023-03-08] MEDS: LEVOTHYROXINE SODIUM 200 MCG TABLET PO SCH (05:41)
[2023-03-08 07:12] LABS: BUN Creatinine Ratio 27.8 (10-20); Calcium 9.2 mg/dl (8.6-10.3); Creatinine Clr Calc Pharmacy 42.1 ml/min; Est GFR (African American) 30.3 ml/min; Est GFR (Non-African American) 26.1 ml/min; Magnesium 2.1 mg/dl (1.7-2.4); Phosphorus 4.5 mg/dl (2.5-4.9); Potassium 4.8 mmol/L (3.5-5.1)
[2023-03-08] MEDS: cefTRIAXone SODIUM 2,000 MG in DEXTROSE 5% 50 ML IV SCH (07:52)
[2023-03-08] MEDS: APIXABAN 5 MG TABLET PO SCH ×2 (07:53→20:43)
[2023-03-08] MEDS: POTASSIUM CHLORIDE CRTAB 20 MEQ TABCR PO SCH ×2 (07:53→20:43)
[2023-03-08] MEDS: FUROSEMIDE 20 MG TAB PO SCH (07:54)
[2023-03-08] MEDS: MAGNESIUM OXIDE 400 MG TAB PO SCH ×2 (07:54→20:43)
[2023-03-08] MEDS: GABAPENTIN 300 MG CAP PO SCH ×3 (07:54→20:43)
[2023-03-08] MEDS: DULoxetine HCL 30 MG CAP PO SCH (07:55)
[2023-03-08] MEDS: FLUTICASONE PROPIONATE NA SPR 16 GM BTL SCH (07:55)
[2023-03-08] MEDS: clonazePAM 0.5 MG TAB PO PRN ×2 (08:04→20:51)
[2023-03-08] MEDS: INSULIN ASPART PER UNIT CHARGE SC SCH ×4 (08:08→20:52)
[2023-03-08] MEDS: traMADol HCL 50 MG TABLET PO PRN ×2 (08:48→20:51)
[2023-03-08] MEDS ORDERED: LANTUS PER UNIT CHARGE SC ONE (09:00)
--- NOTE | 2023-03-08 09:24 | Pain Management Consultation ---
Date of Consultation March 08, 2023 Assessment & Plan (1) Fibromyalgia: (2) Lower extremity pain, bilateral: (3) Lumbago with sciatica: (4) Type 2 diabetes, uncontrolled, with neuropathy: Plan A large portion of the patient's current pain complaints seem to be related to a psychiatric component. Additionally, there is likely neuropathy present due to longstanding poorly controlled diabetes. 1. Agree with the increase of duloxetine to 90 mg daily to target her neuropathic pain and assist with addressing the depression. 2. If having a wheelchair for mobility device will make the patient engage more socially, then this may be beneficial for the patient, but I would also r ecommend PT/OT for conditioning purposes, as relying on a sedentary means of transportation could lead to further deconditioning potential worsening of certain pains. 3. Recommend increasing gabapentin, and titrating dosage to 600 mg TID. 4. Recommend increasing baclofen to 10 mg BID PRN muscle spasm. 5. Continue tramadol 50 mg TID. 6. Should consider facilitating the patient to be able to attend her lumbar spine injection tomorrow at [facility] in [facility], whether this be via hospital transportation and return to inpatient status, or with discharge if the patient is felt stable and ready for this. Alternatively, patient or case management worker may contact their facility to reschedule the injection for a later date. * This injection will help to address at least the main component of her lower extremity pain complaints. * Educated patient that she may receive lumbar/caudal epidural steroid injections more often than every 2 years; this can be done as often as once every 4 months if necessary. Thank you for this consultation. Pain management team will sign off at this time, please reconsult if needed. History of Present Illness Reason for Consultation: Back pain, neuropathy Attending Physician: Miguel Hampton MD History of Present Illness Patient is a 67-year-old female with a history of fibromyalgia and back pain. She presented to the emergency department on 03/05/2023, complaining of left- sided sciatica pain and diffuse generalized fibromyalgia pain. Apparently, she was struggling with dealing with the pain, and was having some suicidal ideations at that time. She is due to have what is believed to be a caudal epidural injection by [facility] tomorrow, 03/09. She is unsure if she will be able to make this since she is trying to get approved for a wheelchair so that she is able to get around her house. She says she is having trouble doing this task due to the pain. Patient denies any recent injuries or recent significant change in her pain patterns. Patient does use tramadol, gabapentin, and baclofen for her symptoms, but she says they have not been seeming to help lately. Her most recent lumbar MICH was about 2 years ago. When her pain is severe, she describes it as spasms all over. When seated on the bedside today, the patient seems to demonstrate that intermittent shooting pains in the left buttocks and posterior thigh are the worst of the pains, as she winces during these episodes and shouts out. She says that that is her sciatica acting up. Patient says that she has a degenerated disc at the very bottom of her spine. She does have concerns that she cannot handle the level of pain she is having. Allergies Allergy/AdvReac Type Severity Reaction Status Date / Time morphine Allergy Severe VIOLENT Verified 03/05/23 09:09 REACTION-"ALMOST " SWELLING dapagliflozin [From Farxiga] Allergy Intermediate YEAST Unverified 03/05/23 09:09 INFECTIONS tetanus toxoid, adsorbed Allergy Intermediate PASSED OUT Verified 03/05/23 09:09 AND GOT SICK WHEN A CHILD bupropion [From Wellbutrin] AdvReac Intermediate Recurrent Verified 03/05/23 09:09 falls as per patient codeine AdvReac Intermediate Hallucinati Verified 03/05/23 09:09 ons empagliflozin AdvReac Intermediate YEAST Verified 03/05/23 09:09 [From Jardiance] INFECTIONS heparin AdvReac Intermediate HIT; FLUID Verified 03/05/23 09:09 IN LUNGS hydrocodone [From Vicodin] AdvReac Intermediate sleepiness Verified 03/05/23 09:09 Home Medications Medication Instructions Recorded Confirmed Type levothyroxine 200 mcg tablet 200 mcg PO QAM 06/09/18 03/05/23 History omeprazole 20 mg capsule,delayed 20 mg PO QAM 06/09/18 03/05/23 History release duloxetine 60 mg capsule,delayed 60 mg PO QAM 12/23/18 03/05/23 History release insulin degludec 100 unit/mL (3 58 unit subcut HS 11/24/20 03/05/23 History mL) subcutaneous pen (Tresiba FlexTouch U-100 insulin) dicyclomine 20 mg tablet 20 mg PO QID PRN abdominal pain 03/27/21 03/05/23 History docusate sodium 100 mg capsule 100 mg PO BID PRN Constipation 03/27/21 03/05/23 History (Colace) insulin aspart U-100 100 unit/mL 40 unit subcut DIRECTED 03/27/21 03/05/23 History (3 mL) subcutaneous pen (Novolog FlexPen U-100 Insulin aspart) levothyroxine 50 mcg tablet 50 mcg PO QAM 03/27/21 03/05/23 History meclizine 12.5 mg tablet 12.5 mg PO TID PRN Dizziness 03/27/21 03/05/23 History clonazepam 0.5 mg tablet 0.5 mg PO BID PRN anxiety #0 tabs 03/28/21 03/05/23 Rx ropinirole 2 mg tablet 2 mg PO HS 09/20/21 03/05/23 History dulaglutide 4.5 mg/0.5 mL 4.5 mg subcut WK 10/15/21 03/05/23 History subcutaneous pen injector (Trulicity) potassium chloride 20 mEq 20 meq PO BID 07/14/22 03/05/23 History tablet,extended release(part/cryst) albuterol sulfate 90 mcg/actuation 2 inh inhalation Q4H PRN Shortness 07/15/22 03/05/23 History aerosol inhaler Of Breath Or Wheezing metformin 500 mg tablet,extended 500 mg PO QAM 07/15/22 03/05/23 History release 24 hr furosemide 40 mg tablet 60 mg PO BID #120 tabs 07/22/22 03/05/23 Rx magnesium oxide 400 mg (241.3 mg 400 mg PO BID 08/16/22 03/05/23 History magnesium) tablet acetaminophen 500 mg tablet 500 - 1,000 mg PO Q6H PRN Pain 03/05/23 03/05/23 History apixaban 5 mg tablet (Eliquis) 5 mg PO BID 03/05/23 03/05/23 History baclofen 5 mg tablet 5 mg PO BID PRN Muscle Spasm 03/05/23 03/05/23 History cholecalciferol (vitamin D3) 25 25 mcg PO QAM 03/05/23 03/05/23 History mcg (1,000 unit) capsule (Vitamin D3) gabapentin 300 mg capsule 300 mg PO TID 03/05/23 03/05/23 History tramadol 50 mg tablet 50 mg PO TID PRN Pain 03/05/23 03/05/23 History trazodone 100 mg tablet 100 mg PO HS 03/05/23 03/05/23 History Pain History Chief Complaint Chief Complaint: Peripheral neuropathy, right > left LE. Back pain. Sciatica. Patient History Medical History (Updated 03/08/23 @ 09:24 by Sean Blackwood PA-C) Acute metabolic encephalopathy Carotid stenosis, right CHF (congestive heart failure) follows with Dr. Woodall CKD (chronic kidney disease), stage III follows with [facility] Depression with anxiety Diabetes mellitus, type II DVT (deep venous thrombosis) at present behind right knee, on Eliquis for this DVT prophylaxis Fibromyalgia Frequent UTI none at present that pt is aware of GERD (gastroesophageal reflux disease) History of DVT (deep vein thrombosis) 2008 due to being in ICU [place] due to pneumonia History of pulmonary embolism 2008 s/p zoraida filter HIT (heparin-induced thrombocytopenia) 2008, [facility] then life flight to [place] > resolved HLD (hyperlipidemia) HTN (hypertension) Hypothyroidism Lower extremity pain, bilateral Lumbago Lumbago with sciatica Morbid obesity Nausea and vomiting after administration of anesthetic agent Neuropathy bilat feet On home oxygen therapy 2-4 continuous ELISSA on CPAP Presence of IVC filter 2008 RLS (restless legs syndrome) Subclavian artery stenosis follows with Dr. Woodall with [facility] Surgical History History of arthroscopy left ankle History of cholecystectomy History of colon resection secondary to R colon perforation, resected treated with colostomy and eventual reversal in 2008, Dr. Lerma History of colonoscopy History of incisional hernia repair History of thyroidectomy, total 2010 History of tooth extraction History of total right knee replacement History of tracheostomy 2008, secondary to acute resp failure secondary to pneumonia, since reversed in 2010 Family History Father , age 74 Lung cancer Mother , age 45 Cirrhosis Social History Smoking Status: Never smoker Tobacco Type: Cigarettes Cigarettes Per Day: 15 pack year hx; Second Hand Exposure: No; Do You Dip or Chew Tobacco: No; Hx Alcohol Use: No Hx Substance Use: No Preferred Language: Icelandic Communication Ability: Effective Restaurant 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 Mood and affect is depressed and tearful. Does not appear in acute distress. HEAD: Normocephalic; atraumatic. NECK: Full ROM; trachea is midline. CHEST: Regular chest respiration and excursion. EXTREMITIES: Full ROM. + TTP of right leg. Distal sensation and pulses intact bilaterally.Diminished light touch sensation to lateral right lower leg compared to the left (baseline due to peripheral neuropathy secondary to diabetes) BACK: Diminished ROM. + lumbosacral tenderness. There is no paraspinal, quadratus lumborum, piriformis, or gluteal tenderness or spasm.Inspection/palpation demonstrates normal lumbar lordotic curvature. NEURO: CN II-XII grossly intact with no focal deficits noted. Normal gait. Awake, alert, and oriented x 3. Distal sensation of lower legs intact and equal bilaterally. Patellar Reflex R absent (TKR)L trace Negative clonus bilaterally SKIN: No lesions, erythema, or rashes noted. LOWER EXTREMITIES: Negative straight leg raise bilaterally. R Hip flexion 4/5; hip extension 4/5; knee extension 4/5; knee flexion 4/5; ankle dorsiflexion 5/5; ankle plantar flexion 5/5; EHL 5/5 L Hip flexion 4/5; hip extension 4/5; knee extension 4/5; knee flexion 4/5; ankle dorsiflexion 5/5; ankle plantar flexion 5/5; EHL 5/5
[2023-03-08] MEDS: BACLOFEN 10 MG TAB PO PRN (11:36)
[2023-03-08] MEDS: POLYETHYLENE (MIRALAX) 17 GM PACK PO PRN (11:40)
--- NOTE | 2023-03-08 12:19 | Hospitalist Progress Note ---
Date of Service March 08, 2023 Assessment & Plan (1) Back pain: Plan: A 67-year-old female who presents with generalized body aches. 1. Generalized body aches . - muscle soreness, back pain, history of fibromyalgia The patient is allergic to morphine. Says She can take fentanyl,. Continue her home tramadol p.r.n. and used IV Toradol p.r.n. while inpt, now stopped as Cr increased. Pt received 10 mg dexamethasone in ED, blood glc -then elevated, will give an other dose of dexamethsone (4 mg) as need to hold toradol Pt feels better but still uncomfortable. pain management consulted while inpt -recommended increased gabapentin to 600 TID, baclofen 10mg prn Pt has an outpt appointment w/ pain management scheduled tomorrow; however I do not feel pt able to be d/c today will get PT/OT eval she is agreeable to rehab SI statements , Psychatry consulted Depression - MDD vs. adjustment d/o -Recommend to increase duloxetine from 60 mg to 90 mg to help with depressive symptoms and pain -given history of CHF consider rechecking EKG QTc in 1-2 weeks to ensure this remains normal -Agree with trazodone use -If duloxetine increase is ineffective for depression after 4-6 weeks then consider cross-taper to sertraline as she found this helpful in the past -Encourage exploration of option for wheelchair or other mobility devices to help her re-engage in social events and using the pool at her apartment 2. History of chronic respiratory failure, possibly secondary to interstitial lung disease, on home oxygen. 3. History of obstructive sleep apnea, on CPAP at bedtime. 4. Leukocytosis, possible right lower extremity cellulitis. empirically started Rocephin. Leg erythema improved. Will de escalate to keflex to complete on 03/12 5. Chronic diastolic congestive heart failure. Hold lasix today due to el evated renal function 6. Chronic kidney disease. creatinine on admission 1.8, baseline creatinine 1.5. * received 3 doses of toradol, is trending down * will hold lasix for now, re eval with bmp next two days, monitor volume status 7. Morbid obesity. She needs counseling. 8. Diabetes. Continue home long-acting insulin sliding scale. Follow blood sugars. Diabetic pharmacy consult. 9. Fibromyalgia, mood disorder. Continue duloxetine, gabapentin, Klonopin p.r.n. 10. Chronic pain. Continue home tramadol p.r.n. DVT prophylaxis. The patient has history of DVT and pulmonary embolus, on Eliquis. DISPOSITION:medical floor. PT/OT ordered, she is agreeable to rehab Full code. Pt was seen and examined in collaboration with Dr. Hampton, please see addendum Admission and Anticipated Discharge Date Admission Date: March 07, 2023 Supervising Physician Co-Signing Physician Notes Pt seen and examined by me, care coordinated w/ Homero Rocha PA-C, pls refer to her note above for further detail. Patient continues to feel uncomfortable, in pain, but somewhat improved since admission. She was scheduled for injection with pain management, however she does not feel she can make it. Discussed possibility of bariatric wheelchair, will have PT OT evaluate first. Pain management saw the patient this morning and medications adjusted. Psychiatry saw patient yesterday and medications adjusted as well. Patient is currently sitting up in bed, in no acute distress, denies any fevers chills chest pain shortness of breath or abdominal pain. She is awake alert oriented. Continues to use supplemental oxygen, which is her baseline. She is teary-eyed sometimes due to pain, and inability to function on her own at this time. We will await PT OT evaluations and will further discuss with CM, CM involved. MD Memo Subjective Patient was seen and examined in 305. She is very tearful today. She feels she isn't able to go home and care for herself. Denies f/c/s, chest pain, sob, n/v/d. Pain is all over. She has a back inj tomorrow scheduled at [facility]. She discussed financial issues which she knows isn't helping her pain. Review of Systems Review of Systems: All systems reviewed & are unremarkable except as noted in HPI & below Physical Exam Physical Exam: Gen: WD/WN, obese, F, NAD, A&O x3 HEENT: Normocephalic, atraumatic, conjunctivae moist, sclerae anicteric, mucous membranes moist. Lung: Clear to Auscultation bilaterally, no wheezes/rales/rhonchi Heart: Regular rate, regular rhythm, no murmurs, rubs, or gallops Abdomen: Soft, NT, ND +BS x 4 Extremities: No edema, scant RLE erythema, no warmth Skin: Warm, no rash, negative turgor. Results & Data Results & Data Vital Signs (Past 12 Hours) Vital Signs Temp Pulse BP Pulse Ox O2 Del Method O2 Flow Rate 03/08/23 07:50 Nasal Cannula 3 03/08/23 07:06 36.3 C L 72 141/68 H 99 Nasal Cannula 3 Medications Administered Current Inpatient Medications Acetaminophen (Acetaminophen 325 Mg Tab) 650 mg PO Q4H PRN PRN Reason: pain/fever Stop: 04/04/23 04:36 Last Admin: 03/08/23 00:19 Dose: 650 mg Albuterol (Albuterol Hfa 8 Gm Inhaler) 2 puffs INH Q4R PRN PRN Reason: Shortness Of Breath Or Wheezin Stop: 04/04/23 04:36 Apixaban (Apixaban 5 Mg Tablet) 5 mg PO BID ROBERT Stop: 04/04/23 08:59 Last Admin: 03/08/23 07:53 Dose: 5 mg Baclofen (Baclofen 10 Mg Tab) 10 mg PO BID PRN PRN Reason: Muscle Spasm Stop: 04/04/23 04:36 Clonazepam (Clonazepam 0.5 Mg Tab) 0.5 mg PO BID PRN PRN Reason: anxiety Stop: 04/04/23 04:36 Last Admin: 03/08/23 08:04 Dose: 0.5 mg Dextrose (Dextrose 50% 50 Ml Syringe) 25 - 50 ml IV UD PRN; Protocol PRN Reason: Hypoglycemia Protocol Stop: 04/04/23 04:36 Dicyclomine HCl (Dicyclomine Hcl 20 Mg Tab) 20 mg PO QID PRN PRN Reason: abdominal pain Stop: 04/04/23 04:36 Docusate Sodium (Docusate Sodium 100 Mg Cap) 100 mg PO BID PRN PRN Reason: Constipation Stop: 04/04/23 04:36 Last Admin: 03/05/23 08:43 Dose: 100 mg Duloxetine HCl (Duloxetine Hcl 30 Mg Cap) 90 mg PO QAM ROBERT Stop: 04/07/23 08:59 Last Admin: 03/08/23 07:55 Dose: 90 mg Fluticasone Propionate (Fluticasone Propionate Na Spr 16 Gm Btl) 2 sprays NA DAILY [facility] Stop: 04/05/23 18:44 Last Admin: 03/08/23 07:55 Dose: 2 sprays Furosemide (Furosemide 20 Mg Tab) 60 mg PO BID [facility] Stop: 04/04/23 08:59 Last Admin: 03/08/23 07:54 Dose: 60 mg Gabapentin (Gabapentin 300 Mg Cap) 600 mg PO TID [facility] Stop: 04/07/23 13:59 Glucagon (Glucagon For Inj 1 Mg Vial) 1 mg SQ UD PRN; Protocol PRN Reason: Hypoglycemia Protocol Stop: 04/04/23 04:36 Glucose (Glucose 10 Tab/Tube) 4 - 8 tab PO UD PRN; Protocol PRN Reason: Hypoglycemia Treatment Stop: 04/04/23 04:36 Glucose (Glucose 40% Gel 15 Gm Tube) 15 - 30 gm PO UD PRN; Protocol PRN Reason: Hypoglycemia Protocol Stop: 04/04/23 04:36 Ceftriaxone Sodium 2,000 mg/ (Dextrose) 70 mls @ 100 mls/hr IV Q24H [facility]; Protocol Stop: 03/12/23 07:59 Last Infusion: 03/08/23 08:41 Dose: Infused Sodium Chloride (Nss 1000ml) 1,000 mls @ 80 mls/hr IV .[id number] [facility] Stop: 04/04/23 17:29 Last Infusion: 03/07/23 08:14 Dose: Infused Insulin Aspart (Insulin Aspart Per Unit Charge) 0 units SC [facility]; Protocol Stop: 04/04/23 07:29 Last Admin: 03/08/23 08:08 Dose: 26 units Insulin Glargine (Lantus Per Unit Charge) 0 units SC [facility]; Protocol Stop: 04/05/23 20:59 Last Admin: 03/07/23 20:56 Dose: 40 units Ketorolac Tromethamine (Ketorolac Tromethamine 15 Mg/Ml Vial) 15 mg IV Q6H PRN PRN Reason: Severe Pain (Scale 7, 8, 9,10) Stop: 03/10/23 04:36 Last Admin: 03/05/23 21:59 Dose: 15 mg Levothyroxine Sodium (Levothyroxine Sodium 200 Mcg Tablet) [facility] Stop: 04/04/23 06:29 Last Admin: 03/08/23 05:41 Dose: 200 mcg Levothyroxine Sodium (Levothyroxine Sodium 50 Mcg Tablet) 50 mcg PO DAILYBB [facility] Stop: 04/04/23 06:29 Last Admin: 03/08/23 05:40 Dose: 50 mcg Lidocaine (Lidocaine 5% 1 Patch) 1 patch TD Q24H [facility] Stop: 04/05/23 00:00 Last Admin: 03/08/23 00:14 Dose: 1 patch Magnesium Oxide (Magnesium Oxide 400 Mg Tab) 400 mg PO BID [facility] Stop: 04/04/23 08:59 Last Admin: 03/08/23 07:54 Dose: 400 mg Meclizine HCl (Meclizine 12.5 Mg Tab) 12.5 mg PO TID PRN PRN Reason: Dizziness Stop: 04/04/23 04:36 Miscellaneous (Carbohydrates For Hypoglycemia ) 15 - 30 gm PO UD PRN PRN Reason: Hypoglycemia Protocol Stop: 04/04/23 04:36 Miscellaneous (Remove Lidoderm Patch) 1 each N/A Q24H [facility] Stop: 04/05/23 11:59 Last Admin: 03/07/23 10:17 Dose: 1 each Miscellaneous Information (Pharmacy Glycemic Mgmt Consult) 1 each N/A UD PRN PRN Reason: Consult Stop: 04/04/23 04:36 Ondansetron HCl (Ondansetron 2 Mg Od Tab) 2 mg PO Q4H PRN PRN Reason: Nausea And Vomiting Stop: 04/04/23 11:29 Last Admin: 03/06/23 12:58 Dose: 2 mg Pantoprazole Sodium (Pantoprazole 40 Mg Tab) 40 mg PO [facility]; Protocol Stop: 04/04/23 20:59 Last Admin: 03/07/23 20:54 Dose: 40 mg Polyethylene Glycol (Polyethylene (Miralax) 17 Gm Pack) 17 gm PO DAILY PRN PRN Reason: Constipation Stop: 04/04/23 04:36 Last Admin: 03/08/23 11:40 Dose: 17 gm Potassium Chloride (Potassium Chloride Crtab 20 Meq Tabcr) 20 meq PO BID [facility] Stop: 04/04/23 08:59 Last Admin: 03/08/23 07:53 Dose: 20 meq Ropinirole HCl (Ropinirole Hcl 2 Mg Tablet) 2 mg PO [facility] Stop: 04/04/23 20:59 Last Admin: 06/12/23 20:53 Dose: 2 mg Sodium Chloride (Sodium Chloride 0.65% Na Soln 45 Ml ([place])) 1 sprays NA TID PRN PRN Reason: Congestion Stop: 04/04/23 15:42 Last Admin: 03/06/23 08:22 Dose: 1 sprays Tramadol HCl (Tramadol Hcl 50 Mg Tablet) 50 mg PO TID PRN PRN Reason: Moderate Pain (Scale 4, 5, 6) Stop: 04/04/23 04:36 Last Admin: 03/08/23 08:48 Dose: 50 mg Trazodone HCl (Trazodone Hcl 50 Mg Tab) 50 mg PO [facility] Stop: 04/04/23 20:59 Last Admin: 03/07/23 20:52 Dose: 50 mg Trazodone HCl (Trazodone Hcl 100 Mg Tab) 100 mg PO [facility] Stop: 04/04/23 20:59 Last Admin: 03/07/23 20:52 Dose: 100 mg (1) Back pain Back pain laterality: bilateral Back pain location: low back pain Chronicity: acute Sciatica presence: unspecified whether sciatica present Qualified Code(s): M54.50 - Low back pain, unspecified
--- NOTE | 2023-03-08 12:34 | Pharmacy Report ---
Pharmacy Glycemic Short Note 2 - Date of Service March 08, 2023 - Glycemic Short BSG Results (Last 24 hours): 03/07/23 03/07/23 03/08/23 16:59 20:43 06:11 Glucose 245 H POC Glucose 111 H 107 H 03/08/23 03/08/23 08:01 11:59 Glucose POC Glucose 232 H 171 H OUTPATIENT ANTIDIABETIC REGIMEN: * Tresiba 60 units SQ qHS * Novolog 40 units AC + correction factor 1:25 for BSG >150 * Trulicity SQ weekly on Sat * Metformin XR 500 mg PO qAM * A1c = 7.1% ASSESSMENT: * BSGs yesterday were [phone] mg/dL. Patient received 81 units of insulin (40 units of basal and 44 units of bolus). * Fasting today is 232 mg/dL. * Give Lantus 10 units with morning then 40 units with dinner. Plan for 50 units HS starting 03/09/23. * Loosened Novolog yesterday since effects from dexamethasone were decreasing. Will continue today. Background * Stephanie is a 67 yo T2DM who presented with generalized body aches. * She was administered a one time dose of dexamethasone IV in the ED and experienced severe hyperglycemia after this. * During her last admission, she has required 40-55 units of basal insulin per day. Of note, she was not on steroids during this time. * An extra 20 units of Lantus was given yesterday morning in addition to an IV insulin bolus around lunchtime. * Fasting BSG of 218 mg/dL this morning. I suspect we are still seeing the effect of dexamethasone. I anticipate this to be improved tomorrow AM. * Persistent post prandial hyperglycemia. Tighten carb coverage. PLAN FOR INPATIENT GLYCEMIC CONTROL: * Hold outpatient oral diabetes medications * Basal insulin * Lantus 10 units SQ this morning * Lantus 40 units SQ with dinner * starting 03/09 50 units HS * Bolus insulin * NovoLog per scale ACHS or Q6hrs while NPO * Goal Range: Low 110 mg/dL - High 140 mg/dL * Correction Factor: 12 mg/dL/unit * Nutritional / Prandial insulin per carb ratio of 1 unit per 4 grams CHO consumed
[2023-03-08] MEDS ORDERED: LANTUS PER UNIT CHARGE SC SCH (16:30)
[2023-03-08] MEDS: traZODone HCL 50 MG TAB PO SCH (20:43)
[2023-03-08] MEDS: PANTOprazole 40 MG TAB PO SCH (20:43)
[2023-03-08] MEDS: traZODone HCL 100 MG TAB PO SCH (20:43)
[2023-03-08] MEDS: rOPINIRole HCL 2 MG TABLET PO SCH (20:43)
[2023-03-08] MEDS: MAGNESIUM HYDROXIDE SUSP 30 ML UDC PO PRN (22:05)
[2023-03-09] MEDS: LIDOCAINE 5% 1 PATCH TD SCH (00:04)
[2023-03-09] MEDS: BACLOFEN 10 MG TAB PO PRN (00:18)
[2023-03-09] MEDS: ACETAMINOPHEN 325 MG TAB PO PRN ×2 (02:49→17:02)
[2023-03-09] MEDS: LEVOTHYROXINE SODIUM 50 MCG TABLET PO SCH (06:22)
[2023-03-09] MEDS: LEVOTHYROXINE SODIUM 200 MCG TABLET PO SCH (06:22)
[2023-03-09 07:25] LABS: BUN Creatinine Ratio 30.4 (10-20); Creatinine Clr Calc Pharmacy 48.6 ml/min; Est GFR (African American) 36.1 ml/min; Est GFR (Non-African American) 31.1 ml/min; Magnesium 2.3 mg/dl (1.7-2.4); Potassium 4.1 mmol/L (3.5-5.1)
[2023-03-09] MEDS: FLUTICASONE PROPIONATE NA SPR 16 GM BTL SCH (08:36)
[2023-03-09] MEDS: DOCUSATE SODIUM/SENNA 50/8.6MG TAB PO SCH ×2 (08:36→21:45)
[2023-03-09] MEDS: POLYETHYLENE (MIRALAX) 17 GM PACK PO SCH (08:36)
[2023-03-09] MEDS: cephALEXin 250 MG CAP PO SCH ×2 (08:37→10:37)
[2023-03-09] MEDS: DULoxetine HCL 30 MG CAP PO SCH (08:37)
[2023-03-09] MEDS: POTASSIUM CHLORIDE CRTAB 20 MEQ TABCR PO SCH ×2 (08:38→21:45)
[2023-03-09] MEDS: APIXABAN 5 MG TABLET PO SCH ×2 (08:38→21:45)
[2023-03-09] MEDS: MAGNESIUM OXIDE 400 MG TAB PO SCH ×2 (08:38→21:45)
[2023-03-09] MEDS: GABAPENTIN 300 MG CAP PO SCH ×3 (08:38→21:45)
[2023-03-09] MEDS: INSULIN ASPART PER UNIT CHARGE SC SCH ×4 (08:41→21:55)
[2023-03-09] MEDS: clonazePAM 0.5 MG TAB PO PRN ×2 (08:46→21:56)
--- NOTE | 2023-03-09 10:47 | Hospitalist Progress Note ---
Date of Service March 09, 2023 Assessment & Plan (1) Back pain: Plan: A 67-year-old female who presents with generalized body aches. 1. Generalized body aches . - muscle soreness, back pain, history of fibromyalgia The patient is allergic to morphine. Says She can take fentanyl Continue her home tramadol p.r.n. and used IV Toradol p.r.n. while inpt, now stopped as Cr increased. Pt received dexamethasone with subsequent elevation in blood sugar Pain stil not controlled, worse pain is that in the back radiating down b/l buttock pain management consulted while inpt -recommended increased gabapentin to 600 TID, baclofen 10mg prn Pt has an outpt appointment w/ pain management scheduled 03/09; however she cancelled it due to unable to go home and care for herself she is now interested in rehab, PT/OT consulted will need to reschedule back injection with Nga Ahn. SI statements , Psychiatry consulted Depression - MDD vs. adjustment d/o -Recommend to increase duloxetine from 60 mg to 90 mg to help with depressive symptoms and pain -given history of CHF consider rechecking EKG QTc in 1-2 weeks to ensure this remains normal, recommend recheck on 03/15 -Agree with trazodone use -If duloxetine increase is ineffective for depression after 4-6 weeks then consider cross-taper to sertraline as she found this helpful in the past -Encourage exploration of option for wheelchair or other mobility devices to help her re-engage in social events and using the pool at her apartment 2. History of chronic respiratory failure, possibly secondary to interstitial lung disease, on home oxygen. 3. History of obstructive sleep apnea, on CPAP at bedtime. 4. Leukocytosis, possible right lower extremity cellulitis. empirically started Rocephin. Leg erythema improved. Will de escalate to keflex to complete on 03/12 5. Chronic diastolic congestive heart failure. Lasix held x 1 day due to elevated renal function, will resume 03/10 6. Chronic kidney disease. creatinine on admission 1.8, baseline creatinine 1.5. * received 3 doses of toradol, is trending down, peak 2.12 * lasix held, renal function improving at 1.68, resume lasix 03/10 7. Morbid obesity. She needs counseling. 8. Diabetes. Continue home long-acting insulin sliding scale. Follow blood sugars. Diabetic pharmacy consult. 9. Fibromyalgia, mood disorder. Continue duloxetine, gabapentin, Klonopin p.r.n. 10. Chronic pain. Continue home tramadol p.r.n. DVT prophylaxis. The patient has history of DVT and pulmonary embolus, on Eliquis. DISPOSITION:medical floor. PT/OT ordered, she is agreeable to rehab Full code. Pt was seen and examined in collaboration with Dr. Castellanos, please see addendum Admission and Anticipated Discharge Date Admission Date: March 07, 2023 Supervising Physician Co-Signing Physician Notes Pt seen and examined by me, care coordinated w/ BRonald Rocha PA-C, pls refer to her note above for further detail. Patient continues to be in pain, but somewhat improved since admission. She was scheduled for injection with pain management today, she is aware she will have to follow up once discharged. Pain management saw the patient and medications adjusted. Psychiatry saw patient and medications adjusted as well. Patient is currently sitting up in chair, in no acute distress, denies any fevers chills chest pain shortness of breath or abdominal pain. She is awake alert oriented. Continues to use supplemental oxygen, which is her baseline. We will await PT OT evaluations and will further discuss with CM, CM involved. Subjective Patient was seen and examined in 305. When approaching the room pt is sitting in bed looking at her phone comfortably. When I make my presence known she starts rocking at edge of bed and wincing in pain. States she got a much better sleep last night but still feels pain is like, " someone is pounding a nail in my back." She denies f/c/s, chest pain, sob, n/v/d. No BM in 3 days and bowel regimen adjusted. Review of Systems Review of Systems: All systems reviewed & are unremarkable except as noted in HPI & below Physical Exam Physical Exam: Gen: WD/WN, obese, F, NAD, A&O x3 HEENT: Normocephalic, atraumatic, conjunctivae moist, sclerae anicteric, mucous membranes moist. Lung: Clear to Auscultation bilaterally, no wheezes/rales/rhonchi Heart: Regular rate, regular rhythm, no murmurs, rubs, or gallops Abdomen: Soft, NT, ND +BS x 4 Extremities: No edema, scant RLE erythema, no warmth Skin: Warm, no rash, negative turgor. Results & Data Results & Data Vital Signs (Past 12 Hours) Vital Signs Temp Pulse Resp BP Pulse Ox O2 Del Method O2 Flow Rate 03/09/23 07:45 Nasal Cannula 3 03/09/23 07:07 36.6 C 68 16 121/66 95 Room Air Medications Administered Current Inpatient Medications Acetaminophen (Acetaminophen 325 Mg Tab) 650 mg PO Q4H PRN PRN Reason: pain/fever Stop: 04/04/23 04:36 Last Admin: 03/09/23 02:49 Dose: 650 mg Albuterol (Albuterol Hfa 8 Gm Inhaler) 2 puffs INH Q4R PRN PRN Reason: Shortness Of Breath Or Wheezin Stop: 04/04/23 04:36 Apixaban (Apixaban 5 Mg Tablet) 5 mg PO BID ROBERT Stop: 04/04/23 08:59 Last Admin: 03/09/23 08:38 Dose: 5 mg Baclofen (Baclofen 10 Mg Tab) 10 mg PO BID PRN PRN Reason: Muscle Spasm Stop: 04/04/23 04:36 Last Admin: 03/09/23 00:18 Dose: 10 mg Cephalexin HCl (Cephalexin 250 Mg Cap) 250 mg PO QID ROBERT; Protocol Stop: 03/12/23 23:59 Last Admin: 03/09/23 10:37 Dose: 250 mg Clonazepam (Clonazepam 0.5 Mg Tab) 0.5 mg PO BID PRN PRN Reason: anxiety Stop: 04/04/23 04:36 Last Admin: 03/09/23 08:46 Dose: 0.5 mg Dextrose (Dextrose 50% 50 Ml Syringe) 25 - 50 ml IV UD PRN; Protocol PRN Reason: Hypoglycemia Protocol Stop: 04/04/23 04:36 Dicyclomine HCl (Dicyclomine Hcl 20 Mg Tab) 20 mg PO QID PRN PRN Reason: abdominal pain Stop: 04/04/23 04:36 Docusate Sodium (Docusate Sodium 100 Mg Cap) 100 mg PO BID PRN PRN Reason: Constipation Stop: 04/04/23 04:36 Last Admin: 03/05/23 08:43 Dose: 100 mg Duloxetine HCl (Duloxetine Hcl 30 Mg Cap) 90 mg PO QAM [facility] Stop: 04/07/23 08:59 Last Admin: 03/09/23 08:37 Dose: 90 mg Fluticasone Propionate (Fluticasone Propionate Na Spr 16 Gm Btl) 2 sprays NA DAILY [facility] Stop: 04/05/23 18:44 Last Admin: 03/09/23 08:36 Dose: 1 sprays Furosemide (Furosemide 20 Mg Tab) 60 mg PO BID [facility] Stop: 04/04/23 08:59 Last Admin: 03/08/23 07:54 Dose: 60 mg Gabapentin (Gabapentin 300 Mg Cap) 600 mg PO TID [facility] Stop: 04/07/23 13:59 Last Admin: 03/09/23 08:38 Dose: 600 mg Glucagon (Glucagon For Inj 1 Mg Vial) 1 mg SQ UD PRN; Protocol PRN Reason: Hypoglycemia Protocol Stop: 04/04/23 04:36 Glucose (Glucose 10 Tab/Tube) 4 - 8 tab PO UD PRN; Protocol PRN Reason: Hypoglycemia Treatment Stop: 04/04/23 04:36 Glucose (Glucose 40% Gel 15 Gm Tube) 15 - 30 gm PO UD PRN; Protocol PRN Reason: Hypoglycemia Protocol Stop: 04/04/23 04:36 Sodium Chloride (Nss 1000ml) 1,000 mls @ 80 mls/hr IV .[id number] [facility] Stop: 04/04/23 17:29 Last Infusion: 03/07/23 08:14 Dose: Infused Insulin Aspart (Insulin Aspart Per Unit Charge) 0 units SC ACHS [facility]; Protocol Stop: 04/04/23 07:29 Last Admin: 03/09/23 08:41 Dose: 17 units Insulin Glargine (Lantus Per Unit Charge) 50 units SC [facility] Stop: 04/08/23 16:29 Ketorolac Tromethamine (Ketorolac Tromethamine 15 Mg/Ml Vial) 15 mg IV Q6H PRN PRN Reason: Severe Pain (Scale 7, 8, 9,10) Stop: 03/10/23 04:36 Last Admin: 03/05/23 21:59 Dose: 15 mg Levothyroxine Sodium (Levothyroxine Sodium 200 Mcg Tablet) 200 mcg PO DAILYBB [facility] Stop: 04/04/23 06:29 Last Admin: 03/09/23 06:22 Dose: 200 mcg Levothyroxine Sodium (Levothyroxine Sodium 50 Mcg Tablet) 50 mcg PO DAILYBB ROBERT Stop: 04/04/23 06:29 Last Admin: 03/09/23 06:22 Dose: 50 mcg Lidocaine (Lidocaine 5% 1 Patch) 1 patch TD Q24H [facility] Stop: 04/05/23 00:00 Last Admin: 03/09/23 00:04 Dose: Not Given Magnesium Hydroxide (Magnesium Hydroxide Susp 30 Ml Udc) 30 ml PO Q6H PRN PRN Reason: Constipation Stop: 04/07/23 19:20 Last Admin: 03/08/23 22:05 Dose: 30 ml Magnesium Oxide (Magnesium Oxide 400 Mg Tab) 400 mg PO BID ROBERT Stop: 04/04/23 08:59 Last Admin: 03/09/23 08:38 Dose: 400 mg Meclizine HCl (Meclizine 12.5 Mg Tab) 12.5 mg PO TID PRN PRN Reason: Dizziness Stop: 04/04/23 04:36 Miscellaneous (Carbohydrates For Hypoglycemia ) 15 - 30 gm PO UD PRN PRN Reason: Hypoglycemia Protocol Stop: 04/04/23 04:36 Miscellaneous (Remove Lidoderm Patch) 1 each N/A Q24H ROBERT Stop: 04/05/23 11:59 Last Admin: 03/08/23 12:58 Dose: 1 each Miscellaneous Information (Pharmacy Glycemic Mgmt Consult) 1 each N/A UD PRN PRN Reason: Consult Stop: 04/04/23 04:36 Ondansetron HCl (Ondansetron 2 Mg Od Tab) 2 mg PO Q4H PRN PRN Reason: Nausea And Vomiting Stop: 04/04/23 11:29 Last Admin: 03/06/23 12:58 Dose: 2 mg Pantoprazole Sodium (Pantoprazole 40 Mg Tab) 40 mg PO HS ROBERT; Protocol Stop: 04/04/23 20:59 Last Admin: 03/08/23 20:43 Dose: 40 mg Polyethylene Glycol (Polyethylene (Miralax) 17 Gm Pack) 17 gm PO DAILY PRN PRN Reason: Constipation Stop: 04/04/23 04:36 Last Admin: 03/08/23 11:40 Dose: 17 gm Polyethylene Glycol (Polyethylene (Miralax) 17 Gm Pack) 17 gm PO DAILY [facility] Stop: 04/08/23 08:59 Last Admin: 03/09/23 08:36 Dose: 17 gm Potassium Chloride (Potassium Chloride Crtab 20 Meq Tabcr) 20 meq PO BID ROBERT Stop: 04/04/23 08:59 Last Admin: 03/09/23 08:38 Dose: 20 meq Ropinirole HCl (Ropinirole Hcl 2 Mg Tablet) 2 mg PO HS [facility] Stop: 04/04/23 20:59 Last Admin: 03/08/23 20:43 Dose: 2 mg Senna/Docusate Sodium (Docusate Sodium/Senna 50/8.6mg Tab) 1 tab PO BID ROBERT Stop: 04/08/23 08:59 Last Admin: 03/09/23 08:36 Dose: 1 tab Sodium Chloride (Sodium Chloride 0.65% Na Soln 45 Ml ([place])) 1 sprays NA TID PRN PRN Reason: Congestion Stop: 04/04/23 15:42 Last Admin: 03/06/23 08:22 Dose: 1 sprays Tramadol HCl (Tramadol Hcl 50 Mg Tablet) 50 mg PO TID PRN PRN Reason: Moderate Pain (Scale 4, 5, 6) Stop: 04/04/23 04:36 Last Admin: 03/08/23 20:51 Dose: 50 mg Trazodone HCl (Trazodone Hcl 50 Mg Tab) 50 mg PO [facility] Stop: 04/04/23 20:59 Last Admin: 03/08/23 20:43 Dose: 50 mg Trazodone HCl (Trazodone Hcl 100 Mg Tab) 100 mg PO [facility] Stop: 04/04/23 20:59 Last Admin: 03/08/23 20:43 Dose: 100 mg (1) Back pain Back pain laterality: bilateral Back pain location: low back pain [employer] nicity: acute Sciatica presence: unspecified whether sciatica present Qualified Code(s): M54.50 - Low back pain, unspecified
[2023-03-09] MEDS: traMADol HCL 50 MG TABLET PO PRN ×2 (11:58→22:02)
--- NOTE | 2023-03-09 12:08 | Pharmacy Report ---
Pharmacy Glycemic Short Note 2 - Date of Service March 09, 2023 - Glycemic Short BSG Results (Last 24 hours): 03/08/23 03/08/23 03/09/23 17:02 20:39 06:21 Glucose 145 H POC Glucose 166 H 120 H 03/09/23 03/09/23 08:00 11:55 Glucose POC Glucose 140 H 95 OUTPATIENT ANTIDIABETIC REGIMEN: * Tresiba 60 units SQ qHS * Novolog 40 units AC + correction factor 1:25 for BSG >150 * Trulicity SQ weekly on Sat * Metformin XR 500 mg PO qAM * A1c = 7.1% ASSESSMENT: 03/09/23: * BSGs trended down significantly yesterday and into today * Received 113 units of insulin (50 of which were basal) * BSG at lunch today of 95 mg/dL, will loosen Novolog and also decrease basal this evening given overall down trend * Antibiotics adjusted to cephalexin yesterday 03/08/23: * BSGs yesterday were [phone] mg/dL. Patient received 81 units of insulin (40 units of basal and 44 units of bolus). * Fasting today is 232 mg/dL. * Give Lantus 10 units with morning then 40 units with dinner. Plan for 50 units HS starting 03/09/23. * Loosened Novolog yesterday since effects from dexamethasone were decreasing. Will continue today. Background * Stephanie is a 67 yo T2DM who presented with generalized body aches. * She was administered a one time dose of dexamethasone IV in the ED and experienced severe hyperglycemia after this. * During her last admission, she has required 40-55 units of basal insulin per day. Of note, she was not on steroids during this time. * An extra 20 units of Lantus was given yesterday morning in addition to an IV insulin bolus around lunchtime. * Fasting BSG of 218 mg/dL this morning. I suspect we are still seeing the effect of dexamethasone. I anticipate this to be improved tomorrow AM. * Persistent post prandial hyperglycemia. Tighten carb coverage. PLAN FOR INPATIENT GLYCEMIC CONTROL: * Hold outpatient oral diabetes medications * Basal insulin - decrease * Lantus 40 units SC HS * Bolus insulin - loosen * NovoLog per scale ACHS or Q6hrs while NPO * Goal Range: Low 110 mg/dL - High 140 mg/dL * Correction Factor: 15 mg/dL/unit * Nutritional / Prandial insulin per carb ratio of 1 unit per 5 grams CHO consumed
[2023-03-09] MEDS: cephALEXin 500 MG CAP PO SCH ×3 (13:30→21:45)
[2023-03-09] MEDS ORDERED: LANTUS PER UNIT CHARGE SC SCH (16:30)
[2023-03-09] MEDS: traZODone HCL 100 MG TAB PO SCH (21:45)
[2023-03-09] MEDS: rOPINIRole HCL 2 MG TABLET PO SCH (21:45)
[2023-03-09] MEDS: PANTOprazole 40 MG TAB PO SCH (21:45)
[2023-03-09] MEDS: traZODone HCL 50 MG TAB PO SCH (21:45)
[2023-03-09] MEDS: LANTUS PER UNIT CHARGE SC SCH (21:55)
[2023-03-09] MEDS: MAGNESIUM HYDROXIDE SUSP 30 ML UDC PO PRN (21:56)
[2023-03-09] MEDS: ONDANSETRON 2 MG OD TAB PO PRN (23:46)
[2023-03-10] MEDS: LIDOCAINE 5% 1 PATCH TD SCH (00:06)
[2023-03-10] MEDS: ACETAMINOPHEN 325 MG TAB PO PRN ×2 (03:24→16:16)
[2023-03-10] MEDS: LEVOTHYROXINE SODIUM 200 MCG TABLET PO SCH (06:20)
[2023-03-10] MEDS: LEVOTHYROXINE SODIUM 50 MCG TABLET PO SCH (06:20)
[2023-03-10 06:48] LABS: BUN Creatinine Ratio 25.3 (10-20); Creatinine Clr Calc Pharmacy 48.1 ml/min; Est GFR (African American) 35.5 ml/min; Est GFR (Non-African American) 30.7 ml/min; Magnesium 2.5 mg/dl (1.7-2.4); Potassium 3.9 mmol/L (3.5-5.1)
[2023-03-10] MEDS: POLYETHYLENE (MIRALAX) 17 GM PACK PO SCH (07:48)
[2023-03-10] MEDS: cephALEXin 500 MG CAP PO SCH ×4 (08:13→20:29)
[2023-03-10] MEDS: APIXABAN 5 MG TABLET PO SCH ×2 (08:14→20:29)
[2023-03-10] MEDS: POTASSIUM CHLORIDE CRTAB 20 MEQ TABCR PO SCH ×2 (08:15→20:29)
[2023-03-10] MEDS: DULoxetine HCL 30 MG CAP PO SCH (08:15)
[2023-03-10] MEDS: GABAPENTIN 300 MG CAP PO SCH ×3 (08:15→20:29)
[2023-03-10] MEDS: MAGNESIUM OXIDE 400 MG TAB PO SCH ×2 (08:16→20:29)
[2023-03-10] MEDS: DOCUSATE SODIUM/SENNA 50/8.6MG TAB PO SCH ×2 (08:16→20:30)
[2023-03-10] MEDS: FLUTICASONE PROPIONATE NA SPR 16 GM BTL SCH (08:16)
[2023-03-10] MEDS: clonazePAM 0.5 MG TAB PO PRN (08:22)
[2023-03-10] MEDS: INSULIN ASPART PER UNIT CHARGE SC SCH ×4 (08:50→23:08)
[2023-03-10] MEDS: FUROSEMIDE 20 MG TAB PO SCH ×2 (09:01→20:29)
[2023-03-10] MEDS ORDERED: LACTULOSE SYRUP 20 GM/30 ML UDC PO ONE (09:23)
[2023-03-10] MEDS: traMADol HCL 50 MG TABLET PO PRN ×2 (13:06→23:09)
--- NOTE | 2023-03-10 15:37 | Hospitalist Progress Note ---
Date of Service March 10, 2023 Assessment & Plan (1) Back pain: (2) Lumbago with sciatica: (3) Major depression, recurrent: (4) Lower extremity pain, bilateral: (5) Type 2 diabetes, uncontrolled, with neuropathy: (6) CHF (congestive heart failure): Plan This is a 67-year-old female who presents with generalized body aches. 1. Generalized body aches . - muscle soreness, back pain, history of fibromyalgia The patient is allergic to morphine. Says She can take fentanyl Continue her home tramadol p.r.n. and used IV Toradol p.r.n. while inpt, now stopped as Cr increased. Pt received dexamethasone with subsequent elevation in blood sugar Pain still not controlled, worse pain is that in the back radiating down b/l buttock Pain management consulted while inpt -recommended increased gabapentin to 600 TID, baclofen 10mg prn Pt has an outpt appointment w/ pain management scheduled 03/09; however she cancelled it due to unable to go home and care for herself she is now interested in rehab, PT/OT consulted and PT recommended SNF although insurance did not approve. Peer to peer attempted but still denied. CM coordinating return home with HH, planning for tomorrow Will need to reschedule back injection with Nga Ahn Constipation- has not had bowel movement in 4 days despite milk of magnesia, miralax, stool softener. Added lactulose this morning SI statements , Psychiatry consulted Depression - MDD vs. adjustment d/o -Recommend to increase duloxetine from 60 mg to 90 mg to help with depressive symptoms and pain -given history of CHF consider rechecking EKG QTc in 1-2 weeks to ensure this remains normal, recommend recheck on 03/15 -Agree with trazodone use -If duloxetine increase is ineffective for depression after 4-6 weeks then consi zachary cross-taper to sertraline as she found this helpful in the past -Encourage exploration of option for wheelchair or other mobility devices to help her re-engage in social events and using the pool at her apartment 2. History of chronic respiratory failure, possibly secondary to interstitial lung disease, on home oxygen. 3. History of obstructive sleep apnea, on CPAP at bedtime. 4. Leukocytosis, possible right lower extremity cellulitis. empirically started Rocephin. Leg erythema improved. Will de escalate to Keflex to complete on 03/12 5. Chronic diastolic congestive heart failure. Lasix held x 1 day due to elevated renal function, resumed 03/10 6. Chronic kidney disease. creatinine on admission 1.8, baseline creatinine 1.5. * received 3 doses of Toradol, is trending down, peak 2.12 * lasix held, renal function improving at 1.68, resume lasix 03/10 7. Morbid obesity. Continue counseling on healthy lifestyle. 8. Diabetes. Continue home long-acting insulin sliding scale. Follow blood sugars. Diabetic pharmacy consult. 9. Fibromyalgia, mood disorder. Continue duloxetine, gabapentin, Klonopin p.r.n. 10. Chronic pain. Continue home tramadol p.r.n. DVT prophylaxis. The patient has history of DVT and pulmonary embolus, on Eliquis. DISPOSITION:medical floor. Plan for dc with home health services, Peer to peer attempted but denied SNF coverage Full code. Pt was seen and examined in collaboration with Dr. Castellanos, please see addendum I spent a total of 55 minutes coordinating, documenting, and providing care for this patient excluding time spent in the performance of separately billed services. Admission and Anticipated Discharge Date Admission Date: March 07, 2023 Supervising Physician Co-Signing Physician Notes Pt seen and examined by me, care coordinated w/ EVIN Maddox, pls refer to her note above for further detail. Patient continues to be in pain, but somewhat improved since admission. She was scheduled for injection with pain management 03/09, she is aware she will have to follow up once discharged. Pain management saw the patient and medications adjusted. Psychiatry saw patient and medications adjusted as well. Patient is currently sitting up in chair, in no acute distress, denies any fevers chills chest pain shortness of breath or abdominal pain. She is awake alert oriented. Continues to use supplemental oxygen, which is her baseline. Pt/roger samaniego CM involved to help w/ dc plan. Subjective Patient was seen and examined in 305. Sitting at side of bed. States she got up during the night to ambulate in the ham to try to get bowels moving, but became weak and required wheelchair assistance to return from. Anxious about living at home by herself due to weakness and tendency for knees to lock. Continuing to have chronic back pain. Otherwise no new symptoms overnight. She denies f/c/s, chest pain, sob, n/v/d. No BM in 4 days and bowel regimen adjusted. Denies any nausea or vomiting. Lactulose ordered for this morning. Review of Systems Review of Systems: At least ten systems reviewed and negative except as noted in the HPI. Physical Exam Physical Exam: Gen: WD/WN, morbidly obese, NAD, A&O x3, anxious HEENT: Normocephalic, atraumatic, conjunctivae moist, sclerae anicteric, mucous membranes moist. Lung: Clear to Auscultation bilaterally, no wheezes/rales/rhonchi Heart: Regular rate, regular rhythm, no murmurs, rubs, or gallops Abdomen: Soft, NT, ND +BS x 4 Extremities: No edema, no warmth Skin: Warm, no rash Results & Data Results & Data Vital Signs (Past 12 Hours) Vital Signs Temp Pulse Resp BP Pulse Ox O2 Del Method O2 Flow Rate 03/10/23 08:06 Nasal Cannula 3 03/10/23 07:25 36.3 C L 75 18 115/64 98 Nasal Cannula [address] [facility] 03/10/23 05:49 Sodium 140 Potassium 3.9 Chloride 100 Carbon Dioxide 34 H BUN 43 H Creatinine 1.70 H Glucose 110 H Calcium 9.0 (1) Back pain Back pain laterality: bilateral Back pain location: low back pain Chronicity: acute Sciatica presence: unspecified whether sciatica present Qualified Code(s): M54.50 - Low back pain, unspecified (6) CHF (congestive heart failure) Heart failure chronicity: acute on chronic Heart failure type: unspecified Qualified Code(s): I50.9 - Heart failure, unspecified
[2023-03-10] MEDS: BACLOFEN 10 MG TAB PO PRN (20:29)
[2023-03-10] MEDS: rOPINIRole HCL 2 MG TABLET PO SCH (20:29)
[2023-03-10] MEDS: traZODone HCL 100 MG TAB PO SCH (20:29)
[2023-03-10] MEDS: PANTOprazole 40 MG TAB PO SCH (20:29)
[2023-03-10] MEDS: traZODone HCL 50 MG TAB PO SCH (20:29)
[2023-03-10] MEDS: LANTUS PER UNIT CHARGE SC SCH (23:09)
[2023-03-11] MEDS: LIDOCAINE 5% 1 PATCH TD SCH (00:01)
[2023-03-11] MEDS: ACETAMINOPHEN 325 MG TAB PO PRN ×2 (03:47→13:23)
[2023-03-11] MEDS: LEVOTHYROXINE SODIUM 200 MCG TABLET PO SCH (05:15)
[2023-03-11] MEDS: LEVOTHYROXINE SODIUM 50 MCG TABLET PO SCH (05:15)
[2023-03-11] MEDS: APIXABAN 5 MG TABLET PO SCH (07:52)
[2023-03-11] MEDS: cephALEXin 500 MG CAP PO SCH ×3 (07:53→17:17)
[2023-03-11] MEDS: DULoxetine HCL 30 MG CAP PO SCH (07:53)
[2023-03-11] MEDS: DOCUSATE SODIUM/SENNA 50/8.6MG TAB PO SCH (07:53)
[2023-03-11] MEDS: FUROSEMIDE 20 MG TAB PO SCH (07:54)
[2023-03-11] MEDS: GABAPENTIN 300 MG CAP PO SCH ×2 (07:55→13:24)
[2023-03-11] MEDS: MAGNESIUM OXIDE 400 MG TAB PO SCH (07:55)
[2023-03-11] MEDS: POTASSIUM CHLORIDE CRTAB 20 MEQ TABCR PO SCH (07:55)
[2023-03-11] MEDS: POLYETHYLENE (MIRALAX) 17 GM PACK PO SCH (07:56)
[2023-03-11] MEDS: FLUTICASONE PROPIONATE NA SPR 16 GM BTL SCH (07:56)
[2023-03-11] MEDS: clonazePAM 0.5 MG TAB PO PRN (07:57)
[2023-03-11] MEDS: INSULIN ASPART PER UNIT CHARGE SC SCH ×3 (08:17→17:20)
[2023-03-11] MEDS: traMADol HCL 50 MG TABLET PO PRN (09:53)
--- NOTE | 2023-03-11 12:32 | Pharmacy Report ---
Pharmacy Glycemic Short Note 2 - Date of Service March 11, 2023 - Glycemic Short BSG Results (Last 24 hours): 03/10/23 03/10/23 03/11/23 16:57 20:25 08:02 POC Glucose 88 137 H 173 H 03/11/23 11:58 POC Glucose 110 H OUTPATIENT ANTIDIABETIC REGIMEN: * Tresiba 60 units SQ qHS * Novolog 40 units AC + correction factor 1:25 for BSG >150 * Trulicity SQ weekly on Sat * Metformin XR 500 mg PO qAM * A1c = 7.1% ASSESSMENT: 03/11/23 * BSGs yesterday were [phone] mg/dL. Patient received 68 units of insulin (40 units of basal and 28 units of bolus). * Fasting today is 173 mg/dL. Will continue with basal at this point since previous two fastings were within goal range. * Continue Novolog as BSGs yesterday were well controlled. 03/09/23: * BSGs trended down significantly yesterday and into today * Received 113 units of insulin (50 of which were basal) * BSG at lunch today of 95 mg/dL, will loosen Novolog and also decrease basal this evening given overall down trend * Antibiotics adjusted to cephalexin yesterday 03/08/23: * BSGs yesterday were [phone] mg/dL. Patient received 81 units of insulin (40 units of basal and 44 units of bolus). * Fasting today is 232 mg/dL. * Give Lantus 10 units with morning then 40 units with dinner. Plan for 50 units HS starting 03/09/23. * Loosened Novolog yesterday since effects from dexamethasone were decreasing. Will continue today. Background * Stephanie is a 67 yo T2DM who presented with generalized body aches. * She was administered a one time dose of dexamethasone IV in the ED and experienced severe hyperglycemia after this. * During her last admission, she has required 40-55 units of basal insulin per day. Of note, she was not on steroids during this time. * An extra 20 units of Lantus was given yesterday morning in addition to an IV insulin bolus around lunchtime. * Fasting BSG of 218 mg/dL this morning. I suspect we are still seeing the effect of dexamethasone. I anticipate this to be improved tomorrow AM. * Persistent post prandial hyperglycemia. Tighten carb coverage. PLAN FOR INPATIENT GLYCEMIC CONTROL: * Hold outpatient oral diabetes medications * Basal insulin * Lantus 40 units SC HS * Bolus insulin - loosen * NovoLog per scale ACHS or Q6hrs while NPO * Goal Range: Low 110 mg/dL - High 140 mg/dL * Correction Factor: 15 mg/dL/unit * Nutritional / Prandial insulin per carb ratio of 1 unit per 5 grams CHO consumed
--- NOTE | 2023-03-11 13:56 | Discharge Summary ---
Discharge Summary Date of Service March 11, 2023 Notes For Next Care Provider Pain and difficulty ambulating 2/2 chronic back pain and fibromyalgia Medication Changes From Visit Increased gabapentin to 600 TID, baclofen 10mg prn and cymbalta 90mg daily. Complete Keflex course 4x / day once more for leg infection Admission HPI Per Admitting Provider This is a 67-year-old female with past medical history significant for chronic respiratory failure secondary to possible interstitial lung disease, on home oxygen all the time and sleep apnea, on CPAP at bedtime, chronic diastolic heart failure, peripheral vascular disease, hypertension, hyperlipidemia, diabetes, insulin requiring, chronic kidney disease, baseline creatinine 1.6, history of PE and DVT, status post IVC filter placement and on Eliquis, history of heparin- induced thrombocytopenia, history of hypothyroidism, past tobacco abuse, fibromyalgia, restless legs syndrome, comes because of ongoing body aches for several weeks. Says she is using tramadol and gabapentin at home and baclofen, but not helping and she is supposed to see pain management for shot in her back on 03/09/2023, but she has lot of pain and spasms and muscle soreness that is the reason she came here. She says she ambulates with a cane, but not able to ambulate much because of pain. Denies any chest pain or abdominal pain. No nausea, no fevers, no headache, no blurred visions, no runny nose, no sore throat. Says appetite is down.She recently had some yeast in the urine, but it is improving. Denies any diarrhea. Has some constipation. Somewhat tearful, asking for pain medication. She says that she cannot take morphine, but she states she can take fentanyl. Admission Exam Per Admitting Provider GENERAL: The patient is morbidly obese Tearful from pain. VITAL SIGNS: Temperature 37.2, pulse 95, respiratory rate 22, blood pressure 127/69, oxygen 97% on 3 liters. HEENT: Pupils equal, round and reactive to light. Oral mucosa dry. NECK: No JVD, no neck masses. CARDIOVASCULAR: S1 and S2 heard. Regular rate and rhythm. No murmur, no gallop. RESPIRATORY SYSTEM: Normal AP diameter. No accessory muscle use. No wheezing, no crackles. ABDOMEN: Soft, bowel sounds present. Diffuse tenderness. No guarding. No distention. CENTRAL NERVOUS SYSTEM: Alert and oriented. Somewhat irritable. Speech is clear. No facial droop. Obeys simple commands. Moves extremities. EXTREMITIES: Lower extremity edema present, right greater than left. Principal Dx & Hospital Course #1 = Principal Diagnosis (1) Back pain: (2) Lumbago with sciatica: (3) Major depression, recurrent: (4) Lower extremity pain, bilateral: (5) Type 2 diabetes, uncontrolled, with neuropathy: (6) CHF (congestive heart failure): Plan This is a 67-year-old female who presents with generalized body aches and muscle soreness in setting of chronic back pain, history of fibromyalgia. Trial of IV Toradol but creatinine worsened. Blood sugar uncontrolled on trial of dexamethasone. Pain management consulted and recommended increase gabapentin to 600 3 times daily and baclofen to 10 mg as needed. We will reschedule outpatient appointment with Dr. Ahn for spinal injection. Also evaluated by psychiatry during admission for depression and recommended increasing duloxetine dose to 90 mg to help with depressive symptoms and pain. Will need a repeat EKG in 1-2 weeks to check QTc given increased duloxetine and trazodone use. Patient anxious about ambulating for significant distances at home due to knees buckling and use of manual wheelchair will significantly improve the patient's ability to participate in MRADLs and will be able to use at home on a regular basis with ability to self propel into wheelchair. Will discharge home with home health services. Had bout of constipation during admission but able to move her bowels yesterday after lactulose. Treated for possible right lower extremity cellulitis during admission with 1 remaining day of Keflex to be completed tomorrow, 03/12. Continue remainder of home medications. Medically stable at time of discharge home. Continue baseline supplemental O2. Discharge Exam Gen: WD/WN, morbidly obese, NAD, A&O x3, anxious HEENT: Normocephalic, atraumatic, conjunctivae moist, sclerae anicteric, mucous membranes moist. Lung: Clear to Auscultation bilaterally, no wheezes/rales/rhonchi Heart: Regular rate, regular rhythm, no murmurs, rubs, or gallops Abdomen: Soft, NT, ND +BS x 4 Extremities: No edema, no warmth Skin: Warm, no rash Updated Medication List Medication Instructions Recorded Confirmed Type levothyroxine 200 mcg tablet 200 mcg PO QAM 06/09/18 03/05/23 History omeprazole 20 mg capsule,delayed 20 mg PO QAM 06/09/18 03/05/23 History release insulin degludec 100 unit/mL (3 58 unit subcut HS 11/24/20 03/05/23 History mL) subcutaneous pen (Tresiba FlexTouch U-100 insulin) dicyclomine 20 mg tablet 20 mg PO QID PRN abdominal pain 03/27/21 03/05/23 History docusate sodium 100 mg capsule 100 mg PO BID PRN Constipation 03/27/21 03/05/23 History (Colace) insulin aspart U-100 100 unit/mL 40 unit subcut DIRECTED 03/27/21 03/05/23 History (3 mL) subcutaneous pen (Novolog FlexPen U-100 Insulin aspart) levothyroxine 50 mcg tablet 50 mcg PO QAM 03/27/21 03/05/23 History meclizine 12.5 mg tablet 12.5 mg PO TID PRN Dizziness 03/27/21 03/05/23 History clonazepam 0.5 mg tablet 0.5 mg PO BID PRN anxiety #0 tabs 03/28/21 03/05/23 Rx ropinirole 2 mg tablet 2 mg PO HS 09/20/21 03/05/23 History dulaglutide 4.5 mg/0.5 mL 4.5 mg subcut WK 10/15/21 03/05/23 History subcutaneous pen injector (Trulicity) potassium chloride 20 mEq 20 meq PO BID 07/14/22 03/05/23 History tablet,extended release(part/cryst) albuterol sulfate 90 mcg/actuation 2 inh inhalation Q4H PRN Shortness 07/15/22 03/05/23 History aerosol inhaler Of Breath Or Wheezing metformin 500 mg tablet,extended 500 mg PO QAM 07/15/22 03/05/23 History release 24 hr furosemide 40 mg tablet 60 mg PO BID #120 tabs 07/22/22 03/05/23 Rx magnesium oxide 400 mg (241.3 mg 400 mg PO BID 08/16/22 03/05/23 History magnesium) tablet acetaminophen 500 mg tablet 500 - 1,000 mg PO Q6H PRN Pain 03/05/23 03/05/23 History apixaban 5 mg tablet (Eliquis) 5 mg PO BID 03/05/23 03/05/23 History cholecalciferol (vitamin D3) 25 25 mcg PO QAM 03/05/23 03/05/23 History mcg (1,000 unit) capsule (Vitamin D3) tramadol 50 mg tablet 50 mg PO TID PRN Pain 03/05/23 03/05/23 History trazodone 100 mg tablet 100 mg PO HS 03/05/23 03/05/23 History baclofen 10 mg tablet 10 mg PO BID PRN muscle spasm #30 03/11/23 Rx tabs cephalexin 500 mg capsule 500 mg PO QID #6 caps 03/11/23 Rx duloxetine 60 mg capsule,delayed 90 mg PO QAM #45 caps 03/11/23 Rx release gabapentin 300 mg capsule 600 mg PO TID #30 caps 03/11/23 03/05/23 Rx Hospital Stay Data Consultations 03/05/23 02:43 ED Decision to Admit Stat 03/07/23 08:54 Consult Psychiatry Routine 03/07/23 08:56 Consult Pain Management Routine Pending Results Patient Have Any Pending Studies at Discharge: No Discharge Instructions Given to Patient (Per Discharging Provider) MEDICATION CHANGES: Increased gabapentin to 600 TID, baclofen 10mg prn and cymbalta 90mg daily Complete Keflex course 4x / day once more for leg infection SUMMARY OF TEST RESULTS: You were admitted to hospital for generalized muscle aches and back pain in setting of fibromyalgia Seen by pain management who recommended increasing gabapentin to 600 TID, baclofen 10mg prn Psychiatry recommended increasing Cymbalta to 90mg daily PENDING TEST RESULTS: None RECOMMENDATIONS FOR FOLLOW-UP: Follow up with PCP as scheduled. Scheduled with Dr. Ahn for spinal injection as above. Continue medication regimen as scheduled aside from changes noted above. Repeat ECG in 1-2 weeks to check QTc. OTHER INSTRUCTIONS: Seek medical attention if you have: * temperature above 101 * chest pain or trouble breathing * abdominal pain, nausea, vomiting * diarrhea, dark stools or bloody stools * any unanswered questions or concerns Call 911 if symptoms are severe. Please take good care of yourself. Call if you have any questions or problems. You can reach a [facility] hospitalist on duty at [facility] 24 hours a day by calling [phone]. Total Time Total Time Spent Total Time Spent (In Minutes): 60 Supervising Physician Co-Signing Physician Notes Pt seen and examined by me, care coordinated w/ EVIN Maddox, pls refer to her note above for further detail. Patient continues to be in pain, but somewhat improved since admission. She was scheduled for injection with pain management 03/09, she is aware she will have to follow up once discharged. Pain management saw the patient and medications adjusted. Psychiatry saw patient and medications adjusted as well. Patient is currently sitting up in chair, in no acute distress, denies any fevers chills chest pain shortness of breath or abdominal pain. She is awake alert oriented. Continues to use supplemental oxygen, which is her baseline. Pt/ot danette, NORMA involved to help w/ dc plan. Going home w/ HH today, appreciate CM for assisting w/ discharge dispo.
== END 2023-03-11 17:47 | disposition home health service (06) | DRG 556 ==
LOC: 3E 01:11 → ED 01:11 → 3E 04:09 → SUATTDRO 03-07 19:25
DX: Z79.4 Long term (current) use of insulin; E11.40 Type 2 diabetes mellitus with diabetic neuropathy, unspecified; I13.0 Hypertensive heart and chronic kidney disease with heart failure and stage 1 through stage 4 chronic kidney disease, or unspecified chronic kidney disease; Z79.890 Hormone replacement therapy; E66.01 Morbid (severe) obesity due to excess calories; Z88.5 Allergy status to narcotic agent; Z88.7 Allergy status to serum and vaccine; Z68.43 Body mass index [BMI] 50.0-59.9, adult; M79.7 Fibromyalgia; J96.10 Chronic respiratory failure, unspecified whether with hypoxia or hypercapnia; R45.851 Suicidal ideations; Z86.718 Personal history of other venous thrombosis and embolism; Z87.891 Personal history of nicotine dependence; I50.32 Chronic diastolic (congestive) heart failure; M54.40 Lumbago with sciatica, unspecified side; E03.9 Hypothyroidism, unspecified; N17.9 Acute kidney failure, unspecified; G47.33 Obstructive sleep apnea (adult) (pediatric); F33.9 Major depressive disorder, recurrent, unspecified

== ENCOUNTER 2023-03-23 06:23 | Inpatient (IN) ==
[2023-03-23 07:02] LABS: Appearance Urine Clear (Clear); Bacteria Urine Automated Negative (Negative); Bilirubin Urine Negative (Negative); Blood Urine Trace (Negative); Cast Urine Automated 0 /lpf (0-5); Color Urine Yellow; Epithelial Cell Urine Auto 0-5 /lpf (0-5); Glucose Urine UA Negative (Negative); Ketones Urine Negative (Negative); Leukocyte Esterase Urine Trace (Negative); Nitrite Urine Negative (Negative); Protein Urine Negative (Negative); RBC Urine Automated 0-4 /hpf (0-4); Specific Gravity Urine 1.008 (1.000-1.030); Urobilinogen Urine Negative (Negative); pH Urine 6.5 (4.5-7.5)
[2023-03-23] MEDS ORDERED: ONDANSETRON INJ 2 MG/ML 2 ML VIAL IV STA (07:18)
[2023-03-23] MEDS ORDERED: ACETAMINOPHEN 1,000 MG/100 ML VIAL IV STA (07:18)
[2023-03-23] MEDS ORDERED: SODIUM CHLORIDE 0.9% 1000ML 1,000 ML IV ONE (07:21)
--- NOTE | 2023-03-23 07:41 | Emergency Department Note ---
ED Provider Note History of Present Illness Chief Complaint: Back Injury/Pain Stated Complaint: BACK PAIN/WEAK Time Seen by Provider: 03/23/23 07:01 67-year-old female who presents to the emergency department via EMS for evaluation of generalized, nonfocal back pain that she describes as achy and occasional sharp pain. She also complains of lower abdominal pain with urinary frequency. The abdominal pain has been ongoing for the past 3 days, and reports history of chronic back issues. She was supposed to have an injection in her b ack at the middle of this month, however could not keep her appointment because she was admitted to our facility with similar symptoms. The patient has been rescheduled for her injection on 03/30/2023. The patient did follow-up with her PCP after being discharged with blood work performed. She did have a change in her medications as well from her discharge, including an increase in her gabapentin and Cymbalta dosing. She continues with Ultram for pain control that she reports is marginal at best. Patient does report having chills, headache and nausea. The patient currently rates her discomfort a 9 out of 10, with occasional sharp abdominal pain rated a 10 out of 10. Home Medications Medication Instructions Recorded Confirmed Type levothyroxine 200 mcg tablet 200 mcg PO QAM 06/09/18 03/23/23 History omeprazole 20 mg capsule,delayed 20 mg PO QAM 06/09/18 03/23/23 History release insulin degludec 100 unit/mL (3 58 unit subcut HS 11/24/20 03/23/23 History mL) subcutaneous pen (Tresiba FlexTouch U-100 insulin) dicyclomine 20 mg tablet 20 mg PO QID PRN abdominal pain 03/27/21 03/23/23 Histo ry docusate sodium 100 mg capsule 100 mg PO BID PRN Constipation 03/27/21 03/23/23 History (Colace) insulin aspart U-100 100 unit/mL 40 unit subcut DIRECTED 03/27/21 03/23/23 History (3 mL) subcutaneous pen (Novolog FlexPen U-100 Insulin aspart) levothyroxine 50 mcg tablet 50 mcg PO QAM 03/27/21 03/23/23 History meclizine 12.5 mg tablet 12.5 mg PO TID PRN Dizziness 03/27/21 03/23/23 History clonazepam 0.5 mg tablet 0.5 mg PO BID PRN anxiety #0 tabs 03/28/21 03/23/23 Rx ropinirole 2 mg tablet 2 mg PO HS 09/20/21 03/23/23 History dulaglutide 4.5 mg/0.5 mL 4.5 mg subcut WK 10/15/21 03/23/23 History subcutaneous pen injector (Trulicity) potassium chloride 20 mEq 20 meq PO BID 07/14/22 03/23/23 History tablet,extended release(part/cryst) metformin 500 mg tablet,extended 500 mg PO QAM 07/15/22 03/23/23 History release 24 hr furosemide 40 mg tablet 60 mg PO BID #120 tabs 07/22/22 03/23/23 Rx magnesium oxide 400 mg (241.3 mg 400 mg PO BID 08/16/22 03/23/23 History magnesium) tablet acetaminophen 500 mg tablet 500 - 1,000 mg PO Q6H PRN Pain 03/05/23 03/23/23 History apixaban 5 mg tablet (Eliquis) 5 mg PO BID 03/05/23 03/23/23 History cholecalciferol (vitamin D3) 25 25 mcg PO QAM 03/05/23 03/23/23 History mcg (1,000 unit) capsule (Vitamin D3) tramadol 50 mg tablet 50 mg PO TID PRN Pain 03/05/23 03/23/23 History trazodone 100 mg tablet 100 mg PO HS 03/05/23 03/23/23 History baclofen 10 mg tablet 10 mg PO BID PRN muscle spasm #30 03/11/23 03/23/23 Rx tabs gabapentin 300 mg capsule 600 mg PO TID #30 caps 03/11/23 03/23/23 Rx duloxetine 60 mg capsule,delayed 60 mg PO QAM 03/23/23 03/23/23 History release Allergies Allergy/AdvReac Type Severity Reaction Status Date / Time morphine Allergy Severe VIOLENT Verified 03/05/23 09:09 REACTION-"ALMOST " SWELLING dapagliflozin [From Farxiga] Allergy Intermediate YEAST Unverified 03/05/23 09:09 INFECTIONS tetanus toxoid, adsorbed Allergy Intermediate PASSED OUT Verified 03/05/23 09:09 AND GOT SICK WHEN A CHILD bupropion [From Wellbutrin] AdvReac Intermediate Recurrent Verified 03/05/23 09:09 falls as per patient codeine AdvReac Intermediate Hallucinati Verified 03/05/23 09:09 ons empagliflozin AdvReac Intermediate YEAST Verified 03/05/23 09:09 [From Jardiance] INFECTIONS heparin AdvReac Intermediate HIT; FLUID Verified 03/05/23 09:09 IN LUNGS hydrocodone [From Vicodin] AdvReac Intermediate sleepiness Verified 03/05/23 09:09 Past Med/Surg History Medical History Acute metabolic encephalopathy Carotid stenosis, right CHF (congestive heart failure) follows with Dr. Woodall CKD (chronic kidney disease), stage III follows with [facility] Depression with anxiety Diabetes mellitus, type II DVT (deep venous thrombosis) at present behind right knee, on Eliquis for this DVT prophylaxis Fibromyalgia Frequent UTI none at present that pt is aware of GERD (gastroesophageal reflux disease) History of DVT (deep vein thrombosis) 2008 due to being in ICU [facility] due to pneumonia History of pulmonary embolism 2008 s/p zoraida filter HIT (heparin-induced thrombocytopenia) 2009, [facility] then life flight to [place] > resolved HLD (hyperlipidemia) HTN (hypertension) Hypothyroidism Lower extremity pain, bilateral Lumbago Lumbago with sciatica Morbid obesity Nausea and vomiting after administration of anesthetic agent Neuropathy bilat feet On home oxygen therapy 2-4 continuous ELISSA on CPAP Presence of IVC filter 2008 RLS (restless legs syndrome) Subclavian artery stenosis follows with Dr. Woodall with [facility] Surgical History History of arthroscopy left ankle History of cholecystectomy History of colon resection secondary to R colon perforation, resected treated with colostomy and eventual reversal in 2008, Dr. Lerma History of colonoscopy History of incisional hernia repair History of thyroidectomy, total 2010 History of tooth extraction History of total right knee replacement History of tracheostomy 2008, secondary to acute resp failure secondary to pneumonia, since reversed in 2010 Family History Father , age 74 Lung cancer Mother , age 45 Cirrhosis Social History Smoking Status: Never smoker Tobacco Type: Cigarettes Cigarettes Per Day: 15 pack year hx; Second Hand Exposure: No; Do You Dip or Chew Tobacco: No; Hx Alcohol Use: No Hx Substance Use: No Preferred Language: Libyan Communication Ability: Effective Supervisor Core Drilling Required: No Beliefs That Will Affect Care: None marital status: Single Current Living Situation: Alone How many Children do You have: 0 Other Information That Helps Us Care for You: No Feels Safe at Home: Yes Assistive Devices: Cane, Oxygen - Continuous and Walker Assistive Devices Comment: walker, rolator at home Physical Exam Vital Signs Vital Signs - 24 hr 03/23/23 06:28 03/23/23 06:35 03/23/23 07:19 Temperature 36.9 C Temperature Source Oral Pulse Rate 94 H 80 Pulse Rate [Apical] 94 H Pulse Rate from SpO2 Sensor Pulse Rhythm Irregular Respiratory Rate 18 18 20 Respiratory Effort / Characteristics Non-Labored Spontaneous Non-Labored Spontaneous Respiratory Depth Normal Normal Blood Pressure 179/79 H Blood Pressure [Left Arm] 179/79 H Blood Pressure Mean 112 Blood Pressure Mean [Left Arm] 112 Blood Pressure Position Lying Blood Pressure Position [Left Arm] Lying Pulse Oximetry 97 97 97 Oxygen Delivery Method Nasal Cannula Nasal Cannula Nasal Cannula Oxygen Flow Rate 3 3 3 Sepsis Recent Fever Within 48 Hours No Sepsis New/Unexplained Change in Mental Status No Sepsis Action Taken by Nursing No Action Required 03/23/23 06:54 03/23/23 07:00 03/23/23 07:30 Temperature Temperature Source Pulse Rate 84 76 73 Pulse Rate [Apical] Pulse Rate from SpO2 Sensor 89 86 82 Pulse Rhythm Respiratory Rate 20 18 14 Respiratory Effort / Characteristics Respiratory Depth Blood Pressure Blood Pressure [Left Arm] Blood Pressure Mean Blood Pressure Mean [Left Arm] Blood Pressure Position Blood Pressure Position [Left Arm] Pulse Oximetry 95 96 95 Oxygen Delivery Method Oxygen Flow Rate Sepsis Recent Fever Within 48 Hours Sepsis New/Unexplained Change in Mental Status Sepsis Action Taken by Nursing 03/23/23 07:38 03/23/23 07:38 03/23/23 08:00 Temperature Temperature Source Pulse Rate 86 79 Pulse Rate [Apical] Pulse Rate from SpO2 Sensor 84 87 Pulse Rhythm Respiratory Rate 17 15 Respiratory Effort / Characteristics Respiratory Depth Blood Pressure 124/76 Blood Pressure [Left Arm] Blood Pressure Mean 92 Blood Pressure Mean [Left Arm] Blood Pressure Position Blood Pressure Position [Left Arm] Pulse Oximetry 97 98 Oxygen Delivery Method Oxygen Flow Rate Sepsis Recent Fever Within 48 Hours Sepsis New/Unexplained Change in Mental Status Sepsis Action Taken by Nursing 03/23/23 08:01 03/23/23 08:01 03/23/23 08:43 Temperature Temperature Source Pulse Rate 78 89 Pulse Rate [Apical] Pulse Rate from SpO2 Sensor 75 Pulse Rhythm Respiratory Rate 15 Respiratory Effort / Characteristics Respiratory Depth Blood Pressure 148/70 H Blood Pressure [Left Arm] Blood Pressure Mean 96 Blood Pressure Mean [Left Arm] Blood Pressure Position Blood Pressure Position [Left Arm] Pulse Oximetry 100 Oxygen Delivery Method Nasal Cannula Oxygen Flow Rate 3 Sepsis Recent Fever Within 48 Hours Sepsis New/Unexplained Change in Mental Status Sepsis Action Taken by Nursing 03/23/23 08:42 03/23/23 08:44 03/23/23 08:44 Temperature Temperature Source Pulse Rate 90 95 H Pulse Rate [Apical] Pulse Rate from SpO2 Sensor 94 H Pulse Rhythm Respiratory Rate 11 L 20 Respiratory Effort / Characteristics Respiratory Depth Blood Pressure 144/48 H Blood Pressure [Left Arm] Blood Pressure Mean 80 Blood Pressure Mean [Left Arm] Blood Pressure Position Blood Pressure Position [Left Arm] Pulse Oximetry 95 Oxygen Delivery Method Oxygen Flow Rate Sepsis Recent Fever Within 48 Hours Sepsis New/Unexplained Change in Mental Status Sepsis Action Taken by Nursing 03/23/23 09:00 03/23/23 09:00 03/23/23 09:30 Temperature Temperature Source Pulse Rate 90 Pulse Rate [Apical] Pulse Rate from SpO2 Sensor 90 Pulse Rhythm Respiratory Rate 17 Respiratory Effort / Characteristics Respiratory Depth Blood Pressure 147/59 H 112/58 L Blood Pressure [Left Arm] Blood Pressure Mean 88 76 Blood Pressure Mean [Left Arm] Blood Pressure Position Blood Pressure Position [Left Arm] Pulse Oximetry 97 Oxygen Delivery Method Oxygen Flow Rate Sepsis Recent Fever Within 48 Hours Sepsis New/Unexplained Change in Mental Status Sepsis Action Taken by Nursing 03/23/23 09:30 03/23/23 10:00 03/23/23 10:01 Temperature Temperature Source Pulse Rate 84 98 H 100 H Pulse Rate [Apical] Pulse Rate from SpO2 Sensor 85 96 H 94 H Pulse Rhythm Respiratory Rate 20 22 17 Respiratory Effort / Characteristics Respiratory Depth Blood Pressure Blood Pressure [Left Arm] Blood Pressure Mean Blood Pressure Mean [Left Arm] Blood Pressure Position Blood Pressure Position [Left Arm] Pulse Oximetry 95 95 96 Oxygen Delivery Method Nasal Cannula Oxygen Flow Rate 3 Sepsis Recent Fever Within 48 Hours Sepsis New/Unexplained Change in Mental Status Sepsis Action Taken by Nursing 03/23/23 10:01 03/23/23 10:30 03/23/23 10:30 Temperature Temperature Source Pulse Rate 90 Pulse Rate [Apical] Pulse Rate from SpO2 Sensor 83 Pulse Rhythm Respiratory Rate 17 Respiratory Effort / Characteristics Respiratory Depth Blood Pressure 168/91 H 147/51 H Blood Pressure [Left Arm] Blood Pressure Mean 116 83 Blood Pressure Mean [Left Arm] Blood Pressure Position Blood Pressure Position [Left Arm] Pulse Oximetry 97 Oxygen Delivery Method Oxygen Flow Rate Sepsis Recent Fever Within 48 Hours Sepsis New/Unexplained Change in Mental Status Sepsis Action Taken by Nursing CONSTITUTIONAL: Morbidly obese female in moderate distress. HEENT: No scleral icterus or conjunctival injection/pallor NECK: No nuchal rigidity or carotid bruits LYMPHATICS: No cervical chain adenopathy. RESPIRATORY: Clear to auscultation bilaterally with no wheezing, crackles, rhonchi or stridor. CARDIOVASCULAR: Regular rate and rhythm with no murmurs, rubs or gallops. GASTROINTESTINAL: Bowel sounds present in all quadrants. Patient has mild generalized lower abdominal tenderness to palpation. Negative Rovsing sign or CVA tenderness. MUSCULOSKELETAL: Full range of motion of all joints without discomfort. INTEGUMENTARY: No rash or other significant dermatologic conditions noted. HEMATOLOGIC: No ecchymosis or petechiae. PSYCHIATRIC: Flat affect. NEUROLOGIC: No focal neurologic deficits noted. Course Course Patient history and physical exam were performed. Nurses notes were reviewed. Vital signs were reviewed, showing an elevated blood pressure of 179/79. The patient is not hypoxic, tachycardic or febrile. I also reviewed prior medical records, including the patient's last hospital discharge summary, with a discharge diagnosis of back pain, sciatica, major depression, bilateral lower extremity pain among other diagnoses. It is noted that the patient also was placed on Keflex for a leg skin infection. Also further reviewed prior medical records showing that the patient was seen in the emergency department on 2021 with lower abdominal pain. She did have a CT showing multiple abdominal wall hernias, as well as diverticula. IV access was established, and labs were drawn. The patient was hydrated with a liter normal saline, and administered IV Tylenol and Zofran. It is noted that the patient does not tolerate opioids. An ECG was performed, showing a normal sinus rhythm. The patient was placed on color television console monitor while in the emergency department. A portable chest x-ray shows a stable cardiomegaly without pneumonia or pneumothorax. Review of labs shows a relatively normal CBC. Patient is mildly hypokalemic at 3.4. Glucose is elevated at 201. Troponin and TSH are normal. Urinalysis shows trace hematuria and leukocyte esterase. Coagulation studies and D-dimer were normal. Noncontrast CT of the abdomen pelvis again shows multiple abdominal wall hernias without evidence for obstruction. Patient also has a right hydronephrosis that appears to be chronic in nature. On reevaluation, the patient reports that she had only minimal relief of the pain. The patient reports that she does use a rollator at home to help her get around, and feels that she is more notably weak this morning. I did discuss the possibility of admission and placement, however the patient refuses being sent to a [facility]. At this point, I discussed the case further with our [facility], who will interview the patient and reach out to the [facility] hospitalist service. I then discussed the case further with the [facility] hospitalist service, who indicated that rehabilitation was recommended on her last ED admission, however her insurance company refused to pay for it. They were also in the process of trying to set up home care as well. Please see hospitalist dictations for further treatment and final disposition. Administered Medications Acetaminophen (Acetaminophen 500 Mg Tab) 1,000 mg PO Q8H PRN PRN Reason: pain Stop: 04/22/23 17:03 Last Admin: 03/30/23 03:16 Dose: 1,000 mg Documented By: Admin: 03/29/23 08:36 Dose: 1,000 mg Documented By: Admin: 03/24/23 08:18 Dose: 1,000 mg Documented By: Admin: 03/23/23 17:31 Dose: 1,000 mg Documented By: HATTIE Apixaban (Apixaban 5 Mg Tablet) 5 mg PO BID ROBERT Stop: 04/22/23 20:59 Last Admin: 03/28/23 08:00 Dose: 5 mg Documented By: Admin: 03/27/23 20:03 Dose: 5 mg Documented By: Admin: 03/27/23 08:43 Dose: 5 mg Documented By: Admin: 03/26/23 20:39 Dose: 5 mg Documented By: Admin: 03/26/23 08:29 Dose: 5 mg Documented By: Admin: 03/25/23 21:16 Dose: 5 mg Documented By: Admin: 03/25/23 09:09 Dose: 5 mg Documented By: Admin: 03/24/23 21:29 Dose: 5 mg Documented By: Admin: 03/24/23 08:19 Dose: 5 mg Documented By: Admin: 03/23/23 20:35 Dose: 5 mg Documented By: BJORN Baclofen (Baclofen 10 Mg Tab) 10 mg PO BID PRN PRN Reason: muscle spasm Stop: 04/22/23 16:24 Last Admin: 03/29/23 22:44 Dose: 10 mg Documented By: Admin: 03/25/23 05:09 Dose: 10 mg Documented By: Admin: 03/24/23 08:18 Dose: 10 mg Documented By: Admin: 03/23/23 21:58 Dose: 10 mg Documented By: BJORN Bisacodyl (Bisacodyl 5 Mg Tabec) 5 mg PO DAILY PRN PRN Reason: Constipation Stop: 04/25/23 12:21 Last Admin: 03/26/23 17:44 Dose: 5 mg Documented By: DONNA Clonazepam (Clonazepam 0.5 Mg Tab) 0.5 mg PO BID PRN PRN Reason: anxiety Stop: 04/22/23 16:24 Last Admin: 03/30/23 07:50 Dose: 0.5 mg Documented By: Admin: 03/29/23 20:09 Dose: 0.5 mg Documented By: Admin: 03/29/23 08:44 Dose: 0.5 mg Documented By: Admin: 03/28/23 20:47 Dose: 0.5 mg Documented By: Admin: 03/28/23 08:59 Dose: 0.5 mg Documented By: Admin: 03/27/23 21:04 Dose: 0.5 mg Documented By: Admin: 03/27/23 08:57 Dose: 0.5 mg Documented By: Admin: 03/26/23 20:43 Dose: 0.5 mg Documented By: Admin: 03/26/23 08:43 Dose: 0.5 mg Documented By: Admin: 03/25/23 21:23 Dose: 0.5 mg Documented By: Admin: 03/25/23 09:20 Dose: 0.5 mg Documented By: Admin: 03/24/23 21:34 Dose: 0.5 mg Documented By: Admin: 03/24/23 08:18 Dose: 0.5 mg Documented By: Admin: 03/23/23 20:35 Dose: 0.5 mg Documented By: BJORN Clotrimazole (Clotrimazole 1% Cr 15 Gm Tube) 1 appln EXT BID PRN PRN Reason: left leg Stop: 04/26/23 11:45 Last Admin: 03/29/23 11:41 Dose: 1 appln Documented By: Admin: 03/29/23 03:43 Dose: 1 appln Documented By: Admin: 03/28/23 11:09 Dose: 1 appln Documented By: Admin: 03/27/23 13:12 Dose: 1 appln Documented By: DONNA Diphenhydramine HCl (Diphenhydramine Hcl 12.5 Mg/5 Ml Udc) 12.5 mg PO Q8H PRN PRN Reason: Itching Stop: 04/26/23 11:57 Last Admin: 03/29/23 11:41 Dose: 12.5 mg Documented By: Admin: 03/27/23 13:11 Dose: 12.5 mg Documented By: DONNA Docusate Sodium (Docusate Sodium 100 Mg Cap) 100 mg PO BID PRN PRN Reason: Constipation Stop: 04/22/23 16:24 Last Admin: 03/24/23 08:22 Dose: 100 mg Documented By: GISELLE Duloxetine HCl (Duloxetine Hcl 60 Mg Cap) 60 mg PO QAM ROBERT Stop: 04/23/23 08:59 Last Admin: 03/30/23 07:47 Dose: 60 mg Documented By: Admin: 03/29/23 08:41 Dose: 60 mg Documented By: Admin: 03/28/23 07:59 Dose: 60 mg Documented By: Admin: 03/27/23 08:44 Dose: 60 mg Documented By: Admin: 03/26/23 08:30 Dose: 60 mg Documented By: Admin: 03/25/23 09:05 Dose: 60 mg Documented By: Admin: 03/24/23 08:20 Dose: 60 mg Documented By: GISELLE Furosemide (Furosemide 20 Mg Tab) 60 mg PO BID ROBERT Stop: 04/27/23 19:24 Last Admin: 03/30/23 07:47 Dose: 60 mg Documented By: Admin: 03/29/23 20:09 Dose: 60 mg Documented By: Admin: 03/29/23 08:39 Dose: 60 mg Documented By: Admin: 03/28/23 20:44 Dose: 60 mg Documented By: MARLENY Gabapentin (Gabapentin 300 Mg Cap) 600 mg PO TID ROBERT Stop: 04/22/23 20:59 Last Admin: 03/30/23 07:48 Dose: 600 mg Documented By: Admin: 03/29/23 20:10 Dose: 600 mg Documented By: Admin: 03/29/23 13:01 Dose: 600 mg Documented By: Admin: 03/29/23 08:38 Dose: 600 mg Documented By: Admin: 03/28/23 20:44 Dose: 600 mg Documented By: Admin: 03/28/23 13:03 Dose: 600 mg Documented By: Admin: 03/28/23 08:00 Dose: 600 mg Documented By: Admin: 03/27/23 20:02 Dose: 600 mg Documented By: Admin: 03/27/23 14:07 Dose: 600 mg Documented By: Admin: 03/27/23 08:44 Dose: 600 mg Documented By: Admin: 03/26/23 20:39 Dose: 600 mg Documented By: Admin: 03/26/23 13:50 Dose: 600 mg Documented By: Admin: 03/26/23 08:30 Dose: 600 mg Documented By: VGVinicius Admin: 03/25/23 21:16 Dose: 600 mg Documented By: Admin: 03/25/23 14:16 Dose: 600 mg Documented By: Admin: 03/25/23 09:05 Dose: 600 mg Documented By: Admin: 03/24/23 21:32 Dose: 600 mg Documented By: Admin: 03/24/23 13:55 Dose: 600 mg Documented By: Admin: 03/24/23 08:21 Dose: 600 mg Documented By: Admin: 03/23/23 20:34 Dose: 600 mg Documented By: BJORN Insulin Aspart (Insulin Aspart Per Unit Charge) 0 units SC ACHS ROBERT Stop: 04/22/23 20:59 Last Admin: 03/30/23 08:20 Dose: 19 units Documented By: JAMAL Co-signed By: GASTON Admin: 03/29/23 21:24 Dose: 4 units Documented By: ADRIAN Co-signed By: ORION Admin: 03/29/23 17:13 Dose: 16 units Documented By: GASTON Co-signed By: LAURI Admin: 03/29/23 12:27 Dose: 14 units Documented By: GASTON Co-signed By: SUSAN Admin: 03/29/23 08:30 Dose: 12 units Documented By: GASTON Co-signed By: JAMAL Admin: 03/28/23 22:00 Dose: 4 units Documented By: MARLENY Co-signed By: ORION Admin: 03/28/23 17:50 Dose: 9 units Documented By: YURI Co-signed By: [facility] Admin: 03/28/23 13:04 Dose: 12 units Documented By: ABDIFATAH Co-signed By: DM Admin: 03/28/23 08:54 Dose: 13 units Documented By: AU Co-signed By: DM Admin: 03/27/23 21:03 Dose: 5 units Documented By: LY Co-signed By: RESIDENTIAL Admin: 03/27/23 17:50 Dose: 10 units Documented By: DONNA Co-signed By: DM Admin: 03/27/23 13:10 Dose: 12 units Documented By: DONNA Co-signed By: DM Admin: 03/27/23 08:56 Dose: 15 units Documented By: DONNA Co-signed By: DM Admin: 03/26/23 20:50 Dose: 6 units Documented By: MARLENY Co-signed By: SORAIDA Admin: 03/26/23 17:41 Dose: 9 units Documented By: VGH Co-signed By: DLS Admin: 03/26/23 12:30 Dose: 11 units Documented By: VGH Co-signed By: DLS Admin: 03/26/23 08:43 Dose: 12 units Documented By: DONNA Co-signed By: ALINA Admin: 03/25/23 21:23 Dose: 3 units Documented By: MARLENY Co-signed By: DRU Admin: 03/25/23 17:47 Dose: 12 units Documented By: MEREDITH Co-signed By: VGH Admin: 03/25/23 12:49 Dose: 9 units Documented By: MEREDITH Co-signed By: VGVinicius Admin: 03/25/23 09:11 Dose: 11 units Documented By: MEREDITH Co-signed By: VGVinicius Admin: 03/24/23 21:33 Dose: Not Given Documented By: Admin: 03/24/23 17:54 Dose: 11 units Documented By: GISELLE Co-signed By: HATTIE Admin: 03/24/23 12:47 Dose: 8 units Documented By: GISELLE Co-signed By: ALINA Admin: 03/24/23 08:28 Dose: 9 units Documented By: GISELLE Co-signed By: ABDIFATAH Admin: 03/23/23 20:30 Dose: 1 units Documented By: BJORN Co-signed By: LAURO Insulin Glargine (Lantus Per Unit Charge) 25 units SQ BID ROBERT Stop: 04/22/23 20:59 Last Admin: 03/30/23 08:21 Dose: 25 units Documented By: JAMAL Co-signed By: GASTON Admin: 03/29/23 21:25 Dose: 25 units Documented By: ADRIAN Co-signed By: ORION Admin: 03/29/23 08:31 Dose: 25 units Documented By: GASTON Co-signed By: JAMAL Admin: 03/28/23 22:00 Dose: 25 units Documented By: MARLENY Co-signed By: ORION Admin: 03/28/23 08:53 Dose: 25 units Documented By: ABDIFATAH Co-signed By: SUSAN Admin: 03/27/23 21:04 Dose: 25 units Documented By: RIOS Co-signed By: SORAIDA Admin: 03/27/23 08:56 Dose: 25 units Documented By: DONNA Co-signed By: SUSAN Admin: 03/26/23 20:50 Dose: 25 units Documented By: MARLENY Co-signed By: SORAIDA Admin: 03/26/23 08:43 Dose: 25 units Documented By: DONNA Co-signed By: ALINA Admin: 03/25/23 21:23 Dose: 25 units Documented By: MARLENY Co-signed By: DRU Admin: 03/25/23 09:13 Dose: 25 units Documented By: MEREDITH Co-signed By: DONNA Admin: 03/24/23 21:33 Dose: 25 units Documented By: BJORN Co-signed By: LAURO Admin: 03/24/23 08:29 Dose: 25 units Documented By: GISELLE Co-signed By: ABDIFATAH Admin: 03/23/23 20:30 Dose: 25 units Documented By: BJORN Co-signed By: LAURO Levothyroxine Sodium (Levothyroxine Sodium 200 Mcg Tablet) 200 mcg PO DAILYBB ROBERT Stop: 04/23/23 06:29 Last Admin: 03/30/23 05:44 Dose: 200 mcg Documented By: Admin: 03/29/23 05:26 Dose: 200 mcg Documented By: Admin: 03/28/23 06:00 Dose: 200 mcg Documented By: Admin: 03/27/23 06:15 Dose: 200 mcg Documented By: Admin: 03/26/23 06:03 Dose: 200 mcg Documented By: Admin: 03/25/23 05:09 Dose: 200 mcg Documented By: Admin: 03/24/23 05:41 Dose: 200 mcg Documented By: BJORN Levothyroxine Sodium (Levothyroxine Sodium 50 Mcg Tablet) 50 mcg PO DAILYBB ROBERT Stop: 04/23/23 06:29 Last Admin: 03/30/23 05:43 Dose: 50 mcg Documented By: Admin: 03/29/23 05:26 Dose: 50 mcg Documented By: Admin: 03/28/23 06:00 Dose: 50 mcg Documented By: Admin: 03/27/23 06:15 Dose: 50 mcg Documented By: Admin: 03/26/23 06:03 Dose: 50 mcg Documented By: Admin: 03/25/23 05:09 Dose: 50 mcg Documented By: Admin: 03/24/23 05:41 Dose: 50 mcg Documented By: BJORN Lidocaine (Lidocaine 5% 1 Patch) 1 patch TD DAILY@1900 [facility] Stop: 04/22/23 18:59 Last Admin: 03/29/23 18:20 Dose: Not Given Documented By: Admin: 03/28/23 17:49 Dose: Not Given Documented By: Admin: 03/27/23 17:53 Dose: Not Given Documented By: Admin: 03/26/23 18:05 Dose: Not Given Documented By: Admin: 03/25/23 18:43 Dose: Not Given Documented By: Admin: 03/24/23 21:21 Dose: Not Given Documented By: Admin: 03/23/23 20:34 Dose: 1 patch Documented By: BJORN Magnesium Oxide (Magnesium Oxide 400 Mg Tab) 400 mg PO BID ROBERT Stop: 04/22/23 20:59 Last Admin: 03/30/23 07:48 Dose: 400 mg Documented By: Admin: 03/29/23 20:10 Dose: 400 mg Documented By: Admin: 03/29/23 08:38 Dose: 400 mg Documented By: Admin: 03/28/23 20:44 Dose: 400 mg Documented By: Admin: 03/28/23 08:00 Dose: 400 mg Documented By: Admin: 03/27/23 20:03 Dose: 400 mg Documented By: Admin: 03/27/23 08:43 Dose: 400 mg Documented By: Admin: 03/26/23 20:39 Dose: 400 mg Documented By: Admin: 03/26/23 08:29 Dose: 400 mg Documented By: Admin: 03/25/23 21:16 Dose: 400 mg Documented By: Admin: 03/25/23 09:06 Dose: 400 mg Documented By: Admin: 03/24/23 21:31 Dose: 400 mg Documented By: Admin: 03/24/23 08:19 Dose: 400 mg Documented By: Admin: 03/23/23 20:35 Dose: 400 mg Documented By: BJORN Meclizine HCl (Meclizine 12.5 Mg Tab) 12.5 mg PO TID PRN PRN Reason: Vertigo Stop: 04/23/23 17:00 Last Admin: 03/24/23 19:38 Dose: 12.5 mg Documented By: BJORN Miscellaneous (Remove Lidoderm Patch) 1 each N/A DAILY@0655 ROBERT Stop: 04/23/23 06:54 Last Admin: 03/30/23 06:17 Dose: Not Given Documented By: Admin: 03/29/23 05:28 Dose: Not Given Documented By: Admin: 03/28/23 06:01 Dose: 1 each Documented By: Admin: 03/27/23 06:17 Dose: Not Given Documented By: Admin: 03/26/23 06:04 Dose: Not Given Documented By: Admin: 03/25/23 06:21 Dose: Not Given Documented By: Admin: 03/24/23 06:06 Dose: 1 each Documented By: BJORN Oxycodone HCl (Oxycodone Hcl Ir 5 Mg Tab (Immediate Release)) 5 mg PO Q4H PRN PRN Reason: Pain Stop: 04/06/23 22:24 Last Admin: 03/30/23 00:22 Dose: 5 mg Documented By: Admin: 03/29/23 17:02 Dose: 5 mg Documented By: Admin: 03/29/23 09:39 Dose: 5 mg Documented By: Admin: 03/29/23 05:26 Dose: 5 mg Documented By: Admin: 03/28/23 22:49 Dose: 5 mg Documented By: Admin: 03/28/23 14:49 Dose: 5 mg Documented By: Admin: 03/28/23 07:58 Dose: 5 mg Documented By: Admin: 03/28/23 03:48 Dose: 5 mg Documented By: Admin: 03/27/23 21:02 Dose: 5 mg Documented By: Admin: 03/27/23 15:38 Dose: 5 mg Documented By: Admin: 03/27/23 11:50 Dose: 5 mg Documented By: Admin: 03/27/23 03:55 Dose: 5 mg Documented By: Admin: 03/26/23 20:43 Dose: 5 mg Documented By: Admin: 03/26/23 13:50 Dose: 5 mg Documented By: Admin: 03/26/23 00:18 Dose: 5 mg Documented By: Admin: 03/25/23 08:38 Dose: 5 mg Documented By: Admin: 03/25/23 03:14 Dose: 5 mg Documented By: Admin: 03/24/23 17:59 Dose: 5 mg Documented By: Admin: 03/24/23 12:46 Dose: 5 mg Documented By: Admin: 03/24/23 04:29 Dose: 5 mg Documented By: Admin: 03/24/23 00:28 Dose: 5 mg Documented By: BJORN Pantoprazole Sodium (Pantoprazole 40 Mg Tab) 40 mg PO QAM ROBERT Stop: 04/23/23 08:59 Last Admin: 03/30/23 07:48 Dose: 40 mg Documented By: Admin: 03/29/23 08:39 Dose: 40 mg Documented By: Admin: 03/28/23 07:59 Dose: 40 mg Documented By: Admin: 03/27/23 08:44 Dose: 40 mg Documented By: Admin: 03/26/23 08:30 Dose: 40 mg Documented By: Admin: 03/25/23 09:08 Dose: 40 mg Documented By: Admin: 03/24/23 08:20 Dose: 40 mg Documented By: GISELLE Polyethylene Glycol (Polyethylene (Miralax) 17 Gm Pack) 17 gm PO DAILY PRN PRN Reason: Constipation Stop: 04/25/23 12:20 Last Admin: 03/29/23 12:59 Dose: 17 gm Documented By: GASTON Potassium Chloride (Potassium Chloride Crtab 20 Meq Tabcr) 20 meq PO BID ROBERT Stop: 04/22/23 20:59 Last Admin: 03/30/23 07:48 Dose: 20 meq Documented By: Admin: 03/29/23 20:11 Dose: 20 meq Documented By: Admin: 03/29/23 08:37 Dose: 20 meq Documented By: Admin: 03/28/23 20:44 Dose: 20 meq Documented By: Admin: 03/28/23 07:59 Dose: 20 meq Documented By: Admin: 03/27/23 20:03 Dose: 20 meq Documented By: Admin: 03/27/23 08:43 Dose: 20 meq Documented By: Admin: 03/26/23 20:39 Dose: 20 meq Documented By: Admin: 03/26/23 08:29 Dose: 20 meq Documented By: Admin: 03/25/23 21:16 Dose: 20 meq Documented By: Admin: 03/25/23 09:08 Dose: 20 meq Documented By: Admin: 03/24/23 21:31 Dose: 20 meq Documented By: Admin: 03/24/23 08:22 Dose: 20 meq Documented By: Admin: 03/23/23 20:37 Dose: 20 meq Documented By: BJORN Ropinirole HCl (Ropinirole Hcl 2 Mg Tablet) 2 mg PO HS ROBERT Stop: 04/22/23 20:59 Last Admin: 03/29/23 20:11 Dose: 2 mg Documented By: Admin: 03/28/23 20:44 Dose: 2 mg Documented By: Admin: 03/27/23 20:04 Dose: 2 mg Documented By: Admin: 03/26/23 20:39 Dose: 2 mg Documented By: Admin: 03/25/23 21:16 Dose: 2 mg Documented By: Admin: 03/24/23 21:32 Dose: 2 mg Documented By: Admin: 03/23/23 20:35 Dose: 2 mg Documented By: KSC Senna/Docusate Sodium (Docusate Sodium/Senna 50/8.6mg Tab) 1 tab PO BID ROBERT Stop: 04/26/23 05:54 Last Admin: 03/30/23 07:47 Dose: 1 tab Documented By: Admin: 03/29/23 20:09 Dose: 1 tab Documented By: Admin: 03/29/23 08:39 Dose: 1 tab Documented By: Admin: 03/28/23 20:44 Dose: 1 tab Documented By: Admin: 03/28/23 08:00 Dose: 1 tab Documented By: Admin: 03/27/23 20:01 Dose: 1 tab Documented By: Admin: 03/27/23 06:15 Dose: 1 tab Documented By: MARLENY Tramadol HCl (Tramadol Hcl 50 Mg Tablet) 50 mg PO TID PRN PRN Reason: Pain Stop: 04/22/23 16:24 Last Admin: 03/29/23 02:17 Dose: 50 mg Documented By: Admin: 03/28/23 06:05 Dose: 50 mg Documented By: Admin: 03/25/23 05:48 Dose: 50 mg Documented By: Admin: 03/24/23 10:41 Dose: 50 mg Documented By: Admin: 03/23/23 17:30 Dose: 50 mg Documented By: HATTIE Trazodone HCl (Trazodone Hcl 100 Mg Tab) 100 mg PO HS ROBERT Stop: 04/22/23 20:59 Last Admin: 03/29/23 20:11 Dose: 100 mg Documented By: Admin: 03/28/23 20:44 Dose: 100 mg Documented By: Admin: 03/27/23 20:03 Dose: 100 mg Documented By: Admin: 03/26/23 20:39 Dose: 100 mg Documented By: Admin: 03/25/23 21:16 Dose: 100 mg Documented By: Admin: 03/24/23 21:32 Dose: 100 mg Documented By: Admin: 03/23/23 20:35 Dose: 100 mg Documented By: BJORN Vitamin D (Cholecalciferol 1,000 Units 25 Mcg Tab) 1,000 units PO QAM ROBERT Stop: 04/23/23 08:59 Last Admin: 03/30/23 07:47 Dose: 1,000 units Documented By: Admin: 03/29/23 08:38 Dose: 1,000 units Documented By: Admin: 03/28/23 07:59 Dose: 1,000 units Documented By: Admin: 03/27/23 08:44 Dose: 1,000 units Documented By: Admin: 03/26/23 08:30 Dose: 1,000 units Documented By: Admin: 03/25/23 09:07 Dose: 1,000 units Documented By: Admin: 03/24/23 08:21 Dose: 1,000 units Documented By: GISELLE Discontinued Medications Bisacodyl (Bisacodyl 10 Mg Supp) 10 mg [place] ONE ONE Stop: 03/25/23 11:25 Last Admin: 03/25/23 12:52 Dose: Not Given Documented By: MEREDITH Ciprofloxacin (Ciprofloxacin 500 Mg Tab) 500 mg PO BID ROBERT; Protocol Stop: 03/29/23 20:59 Last Admin: 03/29/23 08:40 Dose: 500 mg Documented By: Admin: 03/28/23 20:44 Dose: 500 mg Documented By: Admin: 03/28/23 08:00 Dose: 500 mg Documented By: Admin: 03/27/23 20:02 Dose: 500 mg Documented By: Admin: 03/27/23 08:43 Dose: 500 mg Documented By: Admin: 03/26/23 20:39 Dose: 500 mg Documented By: Admin: 03/26/23 08:29 Dose: 500 mg Documented By: Admin: 03/25/23 21:16 Dose: 500 mg Documented By: Admin: 03/25/23 09:07 Dose: 500 mg Documented By: Admin: 03/24/23 21:30 Dose: 500 mg Documented By: BJORN Furosemide (Furosemide 20 Mg Tab) 60 mg PO BID ROBERT Stop: 04/22/23 20:59 Last Admin: 03/28/23 07:59 Dose: 60 mg Documented By: Admin: 03/27/23 20:04 Dose: 60 mg Documented By: Admin: 03/27/23 08:43 Dose: 60 mg Documented By: Admin: 03/26/23 20:39 Dose: 60 mg Documented By: Admin: 03/26/23 08:30 Dose: 60 mg Documented By: Admin: 03/25/23 21:17 Dose: 60 mg Documented By: Admin: 03/25/23 09:06 Dose: 60 mg Documented By: Admin: 03/24/23 21:31 Dose: 60 mg Documented By: Admin: 03/24/23 08:23 Dose: 60 mg Documented By: Admin: 03/23/23 20:36 Dose: 60 mg Documented By: BJORN Hydromorphone HCl (Hydromorphone Inj 0.5 Mg/0.5 Ml Syr) 0.5 mg IV NOW STA Stop: 03/28/23 19:25 Last Admin: 03/28/23 19:41 Dose: 0.5 mg Documented By: MARLENY Acetaminophen (Ofirmev) 1,000 mg in 100 mls @ 400 mls/hr IV NOW STA Stop: 03/23/23 07:32 Last Infusion: 03/23/23 07:50 Dose: 0 mls/hr Documented By: Admin: 03/23/23 07:34 Dose: 400 mls/hr Documented By: PACHECO Sodium Chloride (Nss 1000ml) 1,000 mls @ 999 mls/hr IV .Q1H1M ONE Stop: 03/23/23 08:21 Last Infusion: 03/23/23 08:29 Dose: 0 mls/hr Documented By: Admin: 03/23/23 07:35 Dose: 999 mls/hr Documented By: PACHECO Lactulose (Lactulose Syrup 30 Gm/45 Ml Udp) 30 gm PO NOW STA Stop: 03/27/23 05:53 Last Admin: 03/27/23 06:16 Dose: 30 gm Documented By: MARLENY Loratadine (Loratadine 10 Mg Tab) 10 mg PO NOW ONE Stop: 03/24/23 21:51 Last Admin: 03/24/23 22:33 Dose: 10 mg Documented By: BJORN Magnesium Hydroxide (Magnesium Hydroxide Susp 30 Ml Udc) 30 ml PO Q6H PRN PRN Reason: constipation Stop: 04/23/23 15:54 Last Admin: 03/26/23 09:57 Dose: 30 ml Documented By: Admin: 03/24/23 16:15 Dose: 30 ml Documented By: GISELLE Ondansetron HCl (Ondansetron Inj 2 Mg/Ml 2 Ml Vial) 4 mg IV NOW STA Stop: 03/23/23 07:19 Last Admin: 03/23/23 07:35 Dose: 4 mg Documented By: PACHECO Polyethylene Glycol (Polyethylene (Miralax) 17 Gm Pack) 17 gm PO ONE ONE Stop: 03/26/23 12:22 Last Admin: 03/26/23 12:31 Dose: 17 gm Documented By: DONNA Sennosides (Senna 8.6 Mg Tab) 8.6 mg PO QAM [facility] Stop: 04/24/23 11:29 Last Admin: 03/26/23 08:31 Dose: 8.6 mg Documented By: Admin: 03/25/23 12:06 Dose: 8.6 mg Documented By: MEREDITH Medical Decision Making Medical Records Attestation: I reviewed the patient's medical records. Home Medications was personally reviewed by me Laboratory Data Attestation: I reviewed the patient's lab results. 03/23/23 06:37 03/23/23 06:37 Lab Results 03/23/23 03/23/23 03/23/23 Range/Units 06:37 06:37 06:37 WBC 10.62 (4.8-10.8) K/ul RBC 4.42 (4.20-5.40) M/uL Hgb 13.2 (12.0-16.0) g/dl Hct 42.0 (37.0-47.0) % MCV 95.0 (80.0-100.0) fL MCH 29.9 (25.0-34.0) pg MCHC 31.4 L (32.0-36.0) g/dL RDW Std Deviation 48.4 H (36.4-46.3) fL RDW Coeff of Adolfo 13.8 (11.5-14.5) % Plt Count 265 (130-400) K/uL MPV 9.7 (9.4-12.4) fL Immature Gran % (Auto) 0.4 % Neut % (Auto) 73.3 % Lymph % (Auto) 16.1 % [place] % (Auto) 5.5 % Eos % (Auto) 4.0 % Baso % (Auto) 0.7 % Neut # (Auto) 7.80 H (1.40-6.50) K/uL Lymph # (Auto) 1.71 (1.2-3.4) K/uL [place] # (Auto) 0.58 (0.11-0.59) K/uL Eos # (Auto) 0.42 (0-0.50) K/uL Baso # (Auto) 0.07 (0-0.2) K/uL Immature Gran # (Auto) 0.04 (0.01-0.20) K/uL ESR (0-30) mm/hr PT Cancelled INR Cancelled APTT Cancelled PTT Ratio Cancelled D-Dimer Cancelled Sodium (136-145) mmol/L Potassium (3.5-5.1) mmol/L Chloride (98-107) mmol/L Carbon Dioxide (21-32) mmol/L Anion Gap (3-11) BUN (6-23) mg/dl Creatinine (0.6-1.2) mg/dl Est Cr Clr Drug Dosing ml/min Est GFR ( Amer) ml/min Est GFR (Non-Af Amer) ml/min BUN/Creatinine Ratio (10-20) Glucose (70-99(Fasting)) mg/dl POC Glucose (70-99) mg/dl Calcium (8.6-10.3) mg/dl Magnesium (1.7-2.4) mg/dl Total Bilirubin (0.2-1.0) mg/dl AST (13-39) U/L ALT (7-52) U/L Alkaline Phosphatase (34-104) U/L Troponin I High Sens (0-14) pg/ml Total Protein (6.0-8.3) gm/dl Albumin (3.4-5.0) gm/dl Globulin (2.5-4.0) gm/dl Albumin/Globulin Ratio (0.9-2) Lipase (11-82) U/L TSH (0.300-4.500) uIu/ml Urine Color Urine Appearance (Clear) Urine pH (4.5-7.5) Ur Specific [place] (1.000-1.030) Urine Protein (Negative) Urine Glucose (UA) (Negative) Urine Ketones (Negative) Urine Blood (Negative) Urine Nitrite (Negative) Urine Bilirubin (Negative) Urine Urobilinogen (Negative) Ur Leukocyte Esterase (Negative) Urine WBC (Auto) (0-5) /hpf Urine RBC (Auto) (0-4) /hpf U Hyaline Cast (Auto) (0-5) /lpf U Epithel Cells (Auto) (0-5) /lpf Urine Bacteria (Auto) (Negative) Urine Opiates Screen (Neg) Ur Methadone, Qual (Neg) Urine Barbiturates (Neg) Ur Phencyclidine (PCP) (Neg) U Amphetamin/Meth Scrn (Neg) MDMA (Ecstasy) Screen (Neg) U Benzodiazepines Scrn (Neg) Ur Cocaine Metabolite (Neg) U Marijuana (THC) Screen (Neg) Anaplasma Smear Babesia Smear Babesia microti DNA PCR (Not Detected) Lyme Disease IgG Ab Negative (Negative) Lyme IgG (Western Blot) (NEGATIVE) Lyme IgG 18 kDa Band Lyme IgG 23 kDa Band Lyme IgG 28 kDa Band Lyme IgG 30 kDa Band Lyme IgG 39 kDa Band Lyme IgG 41 kDa Band Lyme IgG 45 kDa Band Lyme IgG 58 kDa Band Lyme IgG 66 kDa Band Lyme IgG 93 kDa Band Lyme IgM Ab (WB) (NEGATIVE) Lyme Disease IgM Ab Equivocal A (Negative) Lyme IgM 23 kDa Band Lyme IgM 39 kDa Band Lyme IgM 41 kDa Band SARS-CoV-2, RNA, NAAT (NEGATIVE) 03/23/23 03/23/23 03/23/23 Range/Units 06:37 06:37 06:37 WBC (4.8-10.8) K/ul RBC (4.20-5.40) M/uL Hgb (12.0-16.0) g/dl Hct (37.0-47.0) % MCV (80.0-100.0) fL MCH (25.0-34.0) pg MCHC (32.0-36.0) g/dL RDW Std Deviation (36.4-46.3) fL RDW Coeff of Adolfo (11.5-14.5) % Plt Count (130-400) K/uL MPV (9.4-12.4) fL Immature Gran % (Auto) % Neut % (Auto) % Lymph % (Auto) % [place] % (Auto) % Eos % (Auto) % Baso % (Auto) % Neut # (Auto) (1.40-6.50) K/uL Lymph # (Auto) (1.2-3.4) K/uL [place] # (Auto) (0.11-0.59) K/uL Eos # (Auto) (0-0.50) K/uL Baso # (Auto) (0-0.2) K/uL Immature Gran # (Auto) (0.01-0.20) K/uL ESR 43 H (0-30) mm/hr PT INR APTT PTT Ratio D-Dimer Sodium 139 (136-145) mmol/L Potassium 3.4 L (3.5-5.1) mmol/L Chloride 95 L (98-107) mmol/L Carbon Dioxide 35 H (21-32) mmol/L Anion Gap 9 (3-11) BUN 30 H (6-23) mg/dl Creatinine 1.68 H (0.6-1.2) mg/dl Est Cr Clr Drug Dosing 47.3 ml/min Est GFR ( Amer) 36.1 ml/min Est GFR (Non-Af Amer) 31.1 ml/min BUN/Creatinine Ratio 17.9 (10-20) Glucose 201 H (70-99(Fasting)) mg/dl POC Glucose (70-99) mg/dl Calcium 9.7 (8.6-10.3) mg/dl Magnesium (1.7-2.4) mg/dl Total Bilirubin 0.4 (0.2-1.0) mg/dl AST 13 (13-39) U/L ALT 12 (7-52) U/L Alkaline Phosphatase 82 (34-104) U/L Troponin I High Sens 8.0 (0-14) pg/ml Total Protein 7.6 (6.0-8.3) gm/dl Albumin 3.9 (3.4-5.0) gm/dl Globulin 3.7 (2.5-4.0) gm/dl Albumin/Globulin Ratio 1.1 (0.9-2) Lipase 17 (11-82) U/L TSH 0.515 (0.300-4.500) uIu/ml Urine Color Urine Appearance (Clear) Urine pH (4.5-7.5) Ur Specific [place] (1.000-1.030) Urine Protein (Negative) Urine Glucose (UA) (Negative) Urine Ketones (Negative) Urine Blood (Negative) Urine Nitrite (Negative) Urine Bilirubin (Negative) Urine Urobilinogen (Negative) Ur Leukocyte Esterase (Negative) Urine WBC (Auto) (0-5) /hpf Urine RBC (Auto) (0-4) /hpf U Hyaline Cast (Auto) (0-5) /lpf U Epithel Cells (Auto) (0-5) /lpf Urine Bacteria (Auto) (Negative) Urine Opiates Screen (Neg) Ur Methadone, Qual (Neg) Urine Barbiturates (Neg) Ur Phencyclidine (PCP) (Neg) U Amphetamin/Meth Scrn (Neg) MDMA (Ecstasy) Screen (Neg) U Benzodiazepines Scrn (Neg) Ur Cocaine Metabolite (Neg) U Marijuana (THC) Screen (Neg) Anaplasma Smear Babesia Smear Babesia microti DNA PCR (Not Detected) Lyme Disease IgG Ab (Negative) Lyme IgG (Western Blot) (NEGATIVE) Lyme IgG 18 kDa Band Lyme IgG 23 kDa Band Lyme IgG 28 kDa Band Lyme IgG 30 kDa Band Lyme IgG 39 kDa Band Lyme IgG 41 kDa Band Lyme IgG 45 kDa Band Lyme IgG 58 kDa Band Lyme IgG 66 kDa Band Lyme IgG 93 kDa Band Lyme IgM Ab (WB) (NEGATIVE) Lyme Disease IgM Ab (Negative) Lyme IgM 23 kDa Band Lyme IgM 39 kDa Band Lyme IgM 41 kDa Band SARS-CoV-2, RNA, NAAT (NEGATIVE) 03/23/23 03/23/23 03/23/23 Range/Units 06:37 06:40 06:40 WBC (4.8-10.8) K/ul RBC (4.20-5.40) M/uL Hgb (12.0-16.0) g/dl Hct (37.0-47.0) % MCV (80.0-100.0) fL MCH (25.0-34.0) pg MCHC (32.0-36.0) g/dL RDW Std Deviation (36.4-46.3) fL RDW Coeff of Adolfo (11.5-14.5) % Plt Count (130-400) K/uL MPV (9.4-12.4) fL Immature Gran % (Auto) % Neut % (Auto) % Lymph % (Auto) % [place] % (Auto) % Eos % (Auto) % Baso % (Auto) % Neut # (Auto) (1.40-6.50) K/uL Lymph # (Auto) (1.2-3.4) K/uL [place] # (Auto) (0.11-0.59) K/uL Eos # (Auto) (0-0.50) K/uL Baso # (Auto) (0-0.2) K/uL Immature Gran # (Auto) (0.01-0.20) K/uL ESR (0-30) mm/hr PT INR APTT PTT Ratio D-Dimer Sodium (136-145) mmol/L Potassium (3.5-5.1) mmol/L Chloride (98-107) mmol/L Carbon Dioxide (21-32) mmol/L Anion Gap (3-11) BUN (6-23) mg/dl Creatinine (0.6-1.2) mg/dl Est Cr Clr Drug Dosing ml/min Est GFR ( Amer) ml/min Est GFR (Non-Af Amer) ml/min BUN/Creatinine Ratio (10-20) Glucose (70-99(Fasting)) mg/dl POC Glucose (70-99) mg/dl Calcium (8.6-10.3) mg/dl Magnesium (1.7-2.4) mg/dl Total Bilirubin (0.2-1.0) mg/dl AST (13-39) U/L ALT (7-52) U/L Alkaline Phosphatase (34-104) U/L Troponin I High Sens (0-14) pg/ml Total Protein (6.0-8.3) gm/dl Albumin (3.4-5.0) gm/dl Globulin (2.5-4.0) gm/dl Albumin/Globulin Ratio (0.9-2) Lipase (11-82) U/L TSH (0.300-4.500) uIu/ml Urine Color Yellow Urine Appearance Clear (Clear) Urine pH 6.5 (4.5-7.5) Ur Specific [place] 1.008 (1.000-1.030) Urine Protein Negative (Negative) Urine Glucose (UA) Negative (Negative) Urine Ketones Negative (Negative) Urine Blood Trace H (Negative) Urine Nitrite Negative (Negative) Urine Bilirubin Negative (Negative) Urine Urobilinogen Negative (Negative) Ur Leukocyte Esterase Trace H (Negative) Urine WBC (Auto) 1-5 (0-5) /hpf Urine RBC (Auto) 0-4 (0-4) /hpf U Hyaline Cast (Auto) 0 (0-5) /lpf U Epithel Cells (Auto) 0-5 (0-5) /lpf Urine Bacteria (Auto) Negative (Negative) Urine Opiates Screen Neg (Neg) Ur Methadone, Qual Neg (Neg) Urine Barbiturates Neg (Neg) Ur Phencyclidine (PCP) Neg (Neg) U Amphetamin/Meth Scrn Neg (Neg) MDMA (Ecstasy) Screen Neg (Neg) U Benzodiazepines Scrn Neg (Neg) Ur Cocaine Metabolite Neg (Neg) U Marijuana (THC) Screen Neg (Neg) Anaplasma Smear Babesia Smear Babesia microti DNA PCR (Not Detected) Lyme Disease IgG Ab (Negative) Lyme IgG (Western Blot) NEGATIVE (NEGATIVE) Lyme IgG 18 kDa Band NON-REACTIVE Lyme IgG 23 kDa Band NON-REACTIVE Lyme IgG 28 kDa Band NON-REACTIVE Lyme IgG 30 kDa Band NON-REACTIVE Lyme IgG 39 kDa Band NON-REACTIVE Lyme IgG 41 kDa Band REACTIVE A Lyme IgG 45 kDa Band NON-REACTIVE Lyme IgG 58 kDa Band REACTIVE A Lyme IgG 66 kDa Band NON-REACTIVE Lyme IgG 93 kDa Band REACTIVE A Lyme IgM Ab (WB) NEGATIVE (NEGATIVE) Lyme Disease IgM Ab (Negative) Lyme IgM 23 kDa Band NON-REACTIVE Lyme IgM 39 kDa Band NON-REACTIVE Lyme IgM 41 kDa Band NON-REACTIVE SARS-CoV-2, RNA, NAAT (NEGATIVE) 03/23/23 03/23/23 03/23/23 Range/Units 09:39 09:39 09:39 WBC (4.8-10.8) K/ul RBC (4.20-5.40) M/uL Hgb (12.0-16.0) g/dl Hct (37.0-47.0) % MCV (80.0-100.0) fL MCH (25.0-34.0) pg MCHC (32.0-36.0) g/dL RDW Std Deviation (36.4-46.3) fL RDW Coeff of Adolfo (11.5-14.5) % Plt Count (130-400) K/uL MPV (9.4-12.4) fL Immature Gran % (Auto) % Neut % (Auto) % Lymph % (Auto) % [place] % (Auto) % Eos % (Auto) % Baso % (Auto) % Neut # (Auto) (1.40-6.50) K/uL Lymph # (Auto) (1.2-3.4) K/uL [place] # (Auto) (0.11-0.59) K/uL Eos # (Auto) (0-0.50) K/uL Baso # (Auto) (0-0.2) K/uL Immature Gran # (Auto) (0.01-0.20) K/uL ESR (0-30) mm/hr PT 11.1 INR 1.0 APTT 27.9 PTT Ratio 1.0 D-Dimer 290 Sodium (136-145) mmol/L Potassium (3.5-5.1) mmol/L Chloride (98-107) mmol/L Carbon Dioxide (21-32) mmol/L Anion Gap (3-11) BUN (6-23) mg/dl Creatinine (0.6-1.2) mg/dl Est Cr Clr Drug Dosing ml/min Est GFR ( Amer) ml/min Est GFR (Non-Af Amer) ml/min BUN/Creatinine Ratio (10-20) Glucose (70-99(Fasting)) mg/dl POC Glucose (70-99) mg/dl Calcium (8.6-10.3) mg/dl Magnesium (1.7-2.4) mg/dl Total Bilirubin (0.2-1.0) mg/dl AST (13-39) U/L ALT (7-52) U/L Alkaline Phosphatase (34-104) U/L Troponin I High Sens (0-14) pg/ml Total Protein (6.0-8.3) gm/dl Albumin (3.4-5.0) gm/dl Globulin (2.5-4.0) gm/dl Albumin/Globulin Ratio (0.9-2) Lipase (11-82) U/L TSH (0.300-4.500) uIu/ml Urine Color Urine Appearance (Clear) Urine pH (4.5-7.5) Ur Specific [place] (1.000-1.030) Urine Protein (Negative) Urine Glucose (UA) (Negative) Urine Ketones (Negative) Urine Blood (Negative) Urine Nitrite (Negative) Urine Bilirubin (Negative) Urine Urobilinogen (Negative) Ur Leukocyte Esterase (Negative) Urine WBC (Auto) (0-5) /hpf Urine RBC (Auto) (0-4) /hpf U Hyaline Cast (Auto) (0-5) /lpf U Epithel Cells (Auto) (0-5) /lpf Urine Bacteria (Auto) (Negative) Urine Opiates Screen (Neg) Ur Methadone, Qual (Neg) Urine Barbiturates (Neg) Ur Phencyclidine (PCP) (Neg) U Amphetamin/Meth Scrn (Neg) MDMA (Ecstasy) Screen (Neg) U Benzodiazepines Scrn (Neg) Ur Cocaine Metabolite (Neg) U Marijuana (THC) Screen (Neg) Anaplasma Smear See Comment Babesia Smear See Comment Babesia microti DNA PCR Not Detected (Not Detected) Lyme Disease IgG Ab (Negative) Lyme IgG (Western Blot) (NEGATIVE) Lyme IgG 18 kDa Band Lyme IgG 23 kDa Band Lyme IgG 28 kDa Band Lyme IgG 30 kDa Band Lyme IgG 39 kDa Band Lyme IgG 41 kDa Band Lyme IgG 45 kDa Band Lyme IgG 58 kDa Band Lyme IgG 66 kDa Band Lyme IgG 93 kDa Band Lyme IgM Ab (WB) (NEGATIVE) Lyme Disease IgM Ab (Negative) Lyme IgM 23 kDa Band Lyme IgM 39 kDa Band Lyme IgM 41 kDa Band SARS-CoV-2, RNA, NAAT (NEGATIVE) 03/23/23 03/23/23 03/23/23 Range/Units 10:15 17:08 20:14 WBC (4.8-10.8) K/ul RBC (4.20-5.40) M/uL Hgb (12.0-16.0) g/dl Hct (37.0-47.0) % MCV (80.0-100.0) fL MCH (25.0-34.0) pg MCHC (32.0-36.0) g/dL RDW Std Deviation (36.4-46.3) fL RDW Coeff of Adolfo (11.5-14.5) % Plt Count (130-400) K/uL MPV (9.4-12.4) fL Immature Gran % (Auto) % Neut % (Auto) % Lymph % (Auto) % [place] % (Auto) % Eos % (Auto) % Baso % (Auto) % Neut # (Auto) (1.40-6.50) K/uL Lymph # (Auto) (1.2-3.4) K/uL [place] # (Auto) (0.11-0.59) K/uL Eos # (Auto) (0-0.50) K/uL Baso # (Auto) (0-0.2) K/uL Immature Gran # (Auto) (0.01-0.20) K/uL ESR (0-30) mm/hr PT INR APTT PTT Ratio D-Dimer Sodium (136-145) mmol/L Potassium (3.5-5.1) mmol/L Chloride (98-107) mmol/L Carbon Dioxide (21-32) mmol/L Anion Gap (3-11) BUN (6-23) mg/dl Creatinine (0.6-1.2) mg/dl Est Cr Clr Drug Dosing ml/min Est GFR ( Amer) ml/min Est GFR (Non-Af Amer) ml/min BUN/Creatinine Ratio (10-20) Glucose (70-99(Fasting)) mg/dl POC Glucose 160 H 162 H (70-99) mg/dl Calcium (8.6-10.3) mg/dl Magnesium (1.7-2.4) mg/dl Total Bilirubin (0.2-1.0) mg/dl AST (13-39) U/L ALT (7-52) U/L Alkaline Phosphatase (34-104) U/L Troponin I High Sens (0-14) pg/ml Total Protein (6.0-8.3) gm/dl Albumin (3.4-5.0) gm/dl Globulin (2.5-4.0) gm/dl Albumin/Globulin Ratio (0.9-2) Lipase (11-82) U/L TSH (0.300-4.500) uIu/ml Urine Color Urine Appearance (Clear) Urine pH (4.5-7.5) Ur Specific [place] (1.000-1.030) Urine Protein (Negative) Urine Glucose (UA) (Negative) Urine Ketones (Negative) Urine Blood (Negative) Urine Nitrite (Negative) Urine Bilirubin (Negative) Urine Urobilinogen (Negative) Ur Leukocyte Esterase (Negative) Urine WBC (Auto) (0-5) /hpf Urine RBC (Auto) (0-4) /hpf U Hyaline Cast (Auto) (0-5) /lpf U Epithel Cells (Auto) (0-5) /lpf Urine Bacteria (Auto) (Negative) Urine Opiates Screen (Neg) Ur Methadone, Qual (Neg) Urine Barbiturates (Neg) Ur Phencyclidine (PCP) (Neg) U Amphetamin/Meth Scrn (Neg) MDMA (Ecstasy) Screen (Neg) U Benzodiazepines Scrn (Neg) Ur Cocaine Metabolite (Neg) U Marijuana (THC) Screen (Neg) Anaplasma Smear Babesia Smear Babesia microti DNA PCR (Not Detected) Lyme Disease IgG Ab (Negative) Lyme IgG (Western Blot) (NEGATIVE) Lyme IgG 18 kDa Band Lyme IgG 23 kDa Band Lyme IgG 28 kDa Band Lyme IgG 30 kDa Band Lyme IgG 39 kDa Band Lyme IgG 41 kDa Band Lyme IgG 45 kDa Band Lyme IgG 58 kDa Band Lyme IgG 66 kDa Band Lyme IgG 93 kDa Band Lyme IgM Ab (WB) (NEGATIVE) Lyme Disease IgM Ab (Negative) Lyme IgM 23 kDa Band Lyme IgM 39 kDa Band Lyme IgM 41 kDa Band SARS-CoV-2, RNA, NAAT NEGATIVE (NEGATIVE) 03/24/23 03/24/23 03/24/23 Range/Units 08:09 08:15 12:36 WBC (4.8-10.8) K/ul RBC (4.20-5.40) M/uL Hgb (12.0-16.0) g/dl Hct (37.0-47.0) % MCV (80.0-100.0) fL MCH (25.0-34.0) pg MCHC (32.0-36.0) g/dL RDW Std Deviation (36.4-46.3) fL RDW Coeff of Adolfo (11.5-14.5) % Plt Count (130-400) K/uL MPV (9.4-12.4) fL Immature Gran % (Auto) % Neut % (Auto) % Lymph % (Auto) % [place] % (Auto) % Eos % (Auto) % Baso % (Auto) % Neut # (Auto) (1.40-6.50) K/uL Lymph # (Auto) (1.2-3.4) K/uL [place] # (Auto) (0.11-0.59) K/uL Eos # (Auto) (0-0.50) K/uL Baso # (Auto) (0-0.2) K/uL Immature Gran # (Auto) (0.01-0.20) K/uL ESR (0-30) mm/hr PT INR APTT PTT Ratio D-Dimer Sodium 139 (136-145) mmol/L Potassium 4.1 D (3.5-5.1) mmol/L Chloride 98 (98-107) mmol/L Carbon Dioxide 36 H (21-32) mmol/L Anion Gap 5 (3-11) BUN 28 H (6-23) mg/dl Creatinine 1.62 H (0.6-1.2) mg/dl Est Cr Clr Drug Dosing 49.1 ml/min Est GFR ( Amer) 37.7 ml/min Est GFR (Non-Af Amer) 32.5 ml/min BUN/Creatinine Ratio 17.3 (10-20) Glucose 170 H (70-99(Fasting)) mg/dl POC Glucose 168 H 148 H (70-99) mg/dl Calcium 9.1 (8.6-10.3) mg/dl Magnesium 1.7 (1.7-2.4) mg/dl Total Bilirubin (0.2-1.0) mg/dl AST (13-39) U/L ALT (7-52) U/L Alkaline Phosphatase (34-104) U/L Troponin I High Sens (0-14) pg/ml Total Protein (6.0-8.3) gm/dl Albumin (3.4-5.0) gm/dl Globulin (2.5-4.0) gm/dl Albumin/Globulin Ratio (0.9-2) Lipase (11-82) U/L TSH (0.300-4.500) uIu/ml Urine Color Urine Appearance (Clear) Urine pH (4.5-7.5) Ur Specific [place] (1.000-1.030) Urine Protein (Negative) Urine Glucose (UA) (Negative) Urine Ketones (Negative) Urine Blood (Negative) Urine Nitrite (Negative) Urine Bilirubin (Negative) Urine Urobilinogen (Negative) Ur Leukocyte Esterase (Negative) Urine WBC (Auto) (0-5) /hpf Urine RBC (Auto) (0-4) /hpf U Hyaline Cast (Auto) (0-5) /lpf U Epithel Cells (Auto) (0-5) /lpf Urine Bacteria (Auto) (Negative) Urine Opiates Screen (Neg) Ur Methadone, Qual (Neg) Urine Barbiturates (Neg) Ur Phencyclidine (PCP) (Neg) U Amphetamin/Meth Scrn (Neg) MDMA (Ecstasy) Screen (Neg) U Benzodiazepines Scrn (Neg) Ur Cocaine Metabolite (Neg) U Marijuana (THC) Screen (Neg) Anaplasma Smear Babesia Smear Babesia microti DNA PCR (Not Detected) Lyme Disease IgG Ab (Negative) Lyme IgG (Western Blot) (NEGATIVE) Lyme IgG 18 kDa Band Lyme IgG 23 kDa Band Lyme IgG 28 kDa Band Lyme IgG 30 kDa Band Lyme IgG 39 kDa Band Lyme IgG 41 kDa Band Lyme IgG 45 kDa Band Lyme IgG 58 kDa Band Lyme IgG 66 kDa Band Lyme IgG 93 kDa Band Lyme IgM Ab (WB) (NEGATIVE) Lyme Disease IgM Ab (Negative) Lyme IgM 23 kDa Band Lyme IgM 39 kDa Band Lyme IgM 41 kDa Band SARS-CoV-2, RNA, NAAT (NEGATIVE) 03/24/23 Range/Units 17:13 WBC (4.8-10.8) K/ul RBC (4.20-5.40) M/uL Hgb (12.0-16.0) g/dl Hct (37.0-47.0) % MCV (80.0-100.0) fL MCH (25.0-34.0) pg MCHC (32.0-36.0) g/dL RDW Std Deviation (36.4-46.3) fL RDW Coeff of Adolfo (11.5-14.5) % Plt Count (130-400) K/uL MPV (9.4-12.4) fL Immature Gran % (Auto) % Neut % (Auto) % Lymph % (Auto) % [place] % (Auto) % Eos % (Auto) % Baso % (Auto) % Neut # (Auto) (1.40-6.50) K/uL Lymph # (Auto) (1.2-3.4) K/uL [place] # (Auto) (0.11-0.59) K/uL Eos # (Auto) (0-0.50) K/uL Baso # (Auto) (0-0.2) K/uL Immature Gran # (Auto) (0.01-0.20) K/uL ESR (0-30) mm/hr PT INR APTT PTT Ratio D-Dimer Sodium (136-145) mmol/L Potassium (3.5-5.1) mmol/L Chloride (98-107) mmol/L Carbon Dioxide (21-32) mmol/L Anion Gap (3-11) BUN (6-23) mg/dl Creatinine (0.6-1.2) mg/dl Est Cr Clr Drug Dosing ml/min Est GFR ( Amer) ml/min Est GFR (Non-Af Amer) ml/min BUN/Creatinine Ratio (10-20) Glucose (70-99(Fasting)) mg/dl POC Glucose 122 H (70-99) mg/dl Calcium (8.6-10.3) mg/dl Magnesium (1.7-2.4) mg/dl Total Bilirubin (0.2-1.0) mg/dl AST (13-39) U/L ALT (7-52) U/L Alkaline Phosphatase (34-104) U/L Troponin I High Sens (0-14) pg/ml Total Protein (6.0-8.3) gm/dl Albumin (3.4-5.0) gm/dl Globulin (2.5-4.0) gm/dl Albumin/Globulin Ratio (0.9-2) Lipase (11-82) U/L TSH (0.300-4.500) uIu/ml Urine Color Urine Appearance (Clear) Urine pH (4.5-7.5) Ur Specific [place] (1.000-1.030) Urine Protein (Negative) Urine Glucose (UA) (Negative) Urine Ketones (Negative) Urine Blood (Negative) Urine Nitrite (Negative) Urine Bilirubin (Negative) Urine Urobilinogen (Negative) Ur Leukocyte Esterase (Negative) Urine WBC (Auto) (0-5) /hpf Urine RBC (Auto) (0-4) /hpf U Hyaline Cast (Auto) (0-5) /lpf U Epithel Cells (Auto) (0-5) /lpf Urine Bacteria (Auto) (Negative) Urine Opiates Screen (Neg) Ur Methadone, Qual (Neg) Urine Barbiturates (Neg) Ur Phencyclidine (PCP) (Neg) U Amphetamin/Meth Scrn (Neg) MDMA (Ecstasy) Screen (Neg) U Benzodiazepines Scrn (Neg) Ur Cocaine Metabolite (Neg) U Marijuana (THC) Screen (Neg) Anaplasma Smear Babesia Smear Babesia microti DNA PCR (Not Detected) Lyme Disease IgG Ab (Negative) Lyme IgG (Western Blot) (NEGATIVE) Lyme IgG 18 kDa Band Lyme IgG 23 kDa Band Lyme IgG 28 kDa Band Lyme IgG 30 kDa Band Lyme IgG 39 kDa Band Lyme IgG 41 kDa Band Lyme IgG 45 kDa Band Lyme IgG 58 kDa Band Lyme IgG 66 kDa Band Lyme IgG 93 kDa Band Lyme IgM Ab (WB) (NEGATIVE) Lyme Disease IgM Ab (Negative) Lyme IgM 23 kDa Band Lyme IgM 39 kDa Band Lyme IgM 41 kDa Band SARS-CoV-2, RNA, NAAT (NEGATIVE) Imaging Data Attestation: I personally reviewed and interpreted this imaging study as follows: My Impression: My interpretation of a portable chest x-ray does not show evidence for pneumonia or pneumothorax. Cardiomegaly is noted. My interpretation of a noncontrast CT of the abdomen and pelvis does not show any acute findings. She does have chronic findings of multiple abdominal wall hernias without obstructive findings or free air. 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 Radiologist reports were also reviewed. Radiologist's Impression: Chest X-Ray 03/23/23 07:19 XR chest 1V portable CLINICAL HISTORY: Chest pain, nonspecific. COMPARISON STUDY: Chest radiograph July 29, 2022. Chest CT September 24, 2021. FINDINGS: There is no pneumothorax or pleural effusion. Cardiomegaly is unchanged. Interstitial thickening is likely chronic. No consolidation is ident ified to suggest superimposed pneumonia. Patchy airspace opacities shown on prior chest radiograph have resolved. IMPRESSION: 1. No acute cardiopulmonary findings. Stable cardiomegaly. 2. Interstitial thickening, likely chronic. ACT 112: Negative or not required by law. Electronically signed by: David Lugo M.D. 03/23/2023 7:56 AM Abdomen/Pelvis CT 03/23/23 07:48 CT OF THE ABDOMEN AND PELVIS WITHOUT CONTRAST CLINICAL HISTORY: Lower abdominal pain. Hematuria. COMPARISON STUDY: CT of the abdomen and pelvis September 19, 2022. TECHNIQUE: Axial images of the abdomen and pelvis were obtained without IV contrast. Images were reviewed in the axial, sagittal, and coronal planes. Automated exposure control was utilized for the study. A dose lowering technique was utilized adhering to the principles of ALARA. FINDINGS: Interstitial thickening within the lower lungs is likely chronic. No pneumatosis, free air or portal venous gas is present. Moderate right hydronephrosis is noted with normal caliber right ureter. This has minimally i ncreased since CT. This favors a congenital UPJ obstruction. There is no left hydronephrosis. There are no urinary calculi. Sensitivity for detection of urothelial lesions is diminished on this unenhanced exam but none are identified. A presacral nodule remains unchanged. There is no evidence for a bowel obstruction. Several bowel containing ventral hernias are again noted. The appearance is similar to prior CT. There is no ascites. Mild splenomegaly is unchanged. Unenhanced images of the liver, adrenal glands and pancreas are unremarkable. There is no biliary ductal dilatation status post cholecystectomy IVC filter is in place. No acute fractures are identified. Jejunal diverticula are noted without evidence for acute diverticulitis. IMPRESSION: 1. No urinary calculi. Redemonstration of moderate right hydronephrosis, slightly increased since prior CT. This favors a congenital UPJ type obstruction. 2. No acute process within the abdomen or pelvis on unenhanced exam. 3. Multiple bowel containing ventral hernias without bowel obstruction. ACT 112: Negative or not required by law. Electronically signed by: David Lugo M.D. 03/23/2023 8:56 AM ECG Data Attestation: I personally reviewed and interpreted this ECG as follows: Indication: + abdominal pain, + back/shoulder pain and + nausea Rate (beats per minute): 97 Rhythm: + normal sinus ECG Intervals/blocks: + Normal QRS, + Normal QT and + Normal [place] ECG [place]: + Normal ECG ST segments: + Normal ST segments Comparison ECG Date: from (09/19/2022) Change: no significant change MDM Narrative Cardiac monitoring: An order was placed for continuous cardiac monitoring. The monitor shows a rate of 97 bpm with a normal sinus rhythm. court monitor history was reviewed throughout the evaluation, and no dysrhythmias were noted. See ED Course section for further details of today's visit. Patient presents with complaint of chronic back pain with new onset of upper back pain today. She is also had lower abdominal pain and urinary symptoms as well. Her urinalysis today does not show evidence for infection, and CT imaging does not show any concerning intra-abdominal findings. It is possible that her lower abdominal discomfort could be secondary to multiple and chronic abdominal wall hernias. Patient does have a prior history of pulmonary emboli, however her D- dimer today is normal. She also denies any chest pain or shortness of breath, therefore I do not have a strong suspicion for worsening pulmonary embolism. Troponin and ECG are also normal, therefore I do not suspect an acute cardiac e vent. Patient does not have any electrolyte abnormalities. She is euthyroid. The patient does have an equivocal Lyme IgM, with additional tickborne labs and Western blot pending. Impression Intractable back pain, Lower abdominal pain, Urinary frequency Discharge Plan Visit Data Chief Complaint: Back Injury/Pain Stated Complaint: BACK PAIN/WEAK ED Provider: Sathish Lee ED Midlevel Provider: eJfferson Rene Discharge Problem: Intractable back pain, Lower abdominal pain, Urinary frequency Patient Disposition: Admitted As Inpatient Discharge Instructions Interventions: ED Discharge Assessment Last Done: 03/23/23 13:50
[2023-03-23 07:42] LABS: Basophils # (auto) 0.07 K/uL (0-0.2); Basophils % (auto) 0.7 %; Eosinophils # (auto) 0.42 K/uL (0-0.50); Hemoglobin 13.2 g/dl (12.0-16.0); Immature Granulocytes # (auto) 0.04 K/uL (0.01-0.20); Immature Granulocytes % (auto) 0.4 %; Lymphocytes # (auto) 1.71 K/uL (1.2-3.4); Lymphocytes % (auto) 16.1 %; Mean Corpuscular Hemoglobin 29.9 pg (25.0-34.0); Mean Corpuscular Hgb Conc 31.4 g/dL (32.0-36.0); Mean Platelet Volume 9.7 fL (9.4-12.4); Monocytes # (auto) 0.58 K/uL (0.11-0.59); Monocytes % (auto) 5.5 %; Neutrophils % (auto) 73.3 %; Platelet Count 265 K/uL (130-400); RDW Coefficient of Variation 13.8 % (11.5-14.5); RDW Standard Deviation 48.4 fL (36.4-46.3); Red Blood Count 4.42 M/uL (4.20-5.40); White Blood Count 10.62 K/ul (4.8-10.8)
[2023-03-23 07:45] LABS: Albumin Globulin Ratio 1.1 (0.9-2); Albumin Level 3.9 gm/dl (3.4-5.0); BUN Creatinine Ratio 17.9 (10-20); Bilirubin,Total 0.4 mg/dl (0.2-1.0); Calcium 9.7 mg/dl (8.6-10.3); Creatinine Clr Calc Pharmacy 47.3 ml/min; Est GFR (African American) 36.1 ml/min; Est GFR (Non-African American) 31.1 ml/min; Globulin 3.7 gm/dl (2.5-4.0); Potassium 3.4 mmol/L (3.5-5.1); Total Protein 7.6 gm/dl (6.0-8.3)
--- NOTE | 2023-03-23 07:57 | XRay Report ---
XR chest 1V portable CLINICAL HISTORY: Chest pain, nonspecific. COMPARISON STUDY: Chest radiograph July 29, 2022. Chest CT September 24, 2021. FINDINGS: There is no pneumothorax or pleural effusion. Cardiomegaly is unchanged. Interstitial thick ening is likely chronic. No consolidation is identified to suggest superimposed pneumonia. Patchy airspace opacities shown on prior chest radiograph have resolved. IMPRESSION: 1. No acute cardiopulmonary findings. Stable cardiomegaly. 2. Interstitial thickening, likely chronic. ACT 112: Negative or not required by law. Electronically signed by: David Lugo M.D. 03/23/2023 7:56 AM
[2023-03-23 08:14] LABS: Lyme Ab IgG w/WB Rflx Negative (Negative)
[2023-03-23 08:18] LABS: Lyme Ab IgM w/WB Rflx Equivocal (Negative)
[2023-03-23 08:41] LABS: Amphetamines+Metham, Urine Neg (Neg); Barbiturates, Urine Neg (Neg); Benzodiazepine, Urine Neg (Neg); Cocaine, Urine Neg (Neg); MDMA (Ecstacy), Urine Neg (Neg); Methadone, Urine Neg (Neg); Opiate, Urine Neg (Neg); Phencyclidine, Urine Neg (Neg)
--- NOTE | 2023-03-23 08:56 | Emergency Department Note ---
ED Visit Note I was consulted by the Advanced Practice Provider Jefferson Rene PA-C. I saw the patient personally and performed a substantive portion of the visit. This includes aspects of the HPI, MDM, diagnostic interpretations, and disposition/plan. Patient did have a CT of the abdomen pelvis shows moderate right-sided hydronephrosis slightly increased compared to prior. No acute changes. Patient was admitted to the medicine service. .
--- NOTE | 2023-03-23 08:58 | CT Scan Report ---
CT OF THE ABDOMEN AND PELVIS WITHOUT CONTRAST CLINICAL HISTORY: Lower abdominal pain. Hematuria. COMPARISON STUDY: CT of the abdomen and pelvis September 19, 2022. TECHNIQUE: Axial images of the abdomen and pelvis were obtained without IV contrast. Images were revi ewed in the axial, sagittal, and coronal planes. Automated exposure control was utilized for the kiesha dy. A dose lowering technique was utilized adhering to the principles of ALARA. FINDINGS: Interstitial thickening within the lower lungs is likely chronic. No pneumatosis, free air or portal venous gas is present. Moderate right hydronephrosis is noted with normal caliber right ure ter. This has minimally increased since CT. This favors a congenital UPJ obstruction. There is no lef t hydronephrosis. There are no urinary calculi. Sensitivity for detection of urothelial lesions is di minished on this unenhanced exam but none are identified. A presacral nodule remains unchanged. There is no evidence for a bowel obstruction. Several bowel containing ventral hernias are again noted. Th e appearance is similar to prior CT. There is no ascites. Mild splenomegaly is unchanged. Unenhanced images of the liver, adrenal glands and pancreas are unremarkable. There is no biliary ductal dilatat ion status post cholecystectomy IVC filter is in place. No acute fractures are identified. Jejunal di verticula are noted without evidence for acute diverticulitis. IMPRESSION: 1. No urinary calculi. Redemonstration of moderate right hydronephrosis, slightly increased since pito or CT. This favors a congenital UPJ type obstruction. 2. No acute process within the abdomen or pelvis on unenhanced exam. 3. Multiple bowel containing ventral hernias without bowel obstruction. ACT 112: Negative or not required by law. Electronically signed by: David Lugo M.D. 03/23/2023 8:56 AM
[2023-03-23 10:41] LABS: D Dimer 290 ug/L FEU (0-500); Partial Thromboplastin Time 27.9 Seconds (21.0-31.0); Prothrombin Time 11.1 Seconds (9.0-12.0)
--- NOTE | 2023-03-23 11:11 | History & Physical Report ---
Date of Service March 23, 2023 Assessment & Plan (1) Intractable back pain: Plan: This is a 67 y/o female with a history of chronic respiratory failure due to probable interstitial lung disease, on chronic O2 at 3 L, ELISSA on CPAP, chronic diastolic heart failure, PVD, HTN, hyperlipidemia, insulin-requiring DM, CKD with baseline creatinine ~1.6, prior DVT/PE, s/p IVC filter placement and on Eliquis, hx HIT, hypothyroidism, fibromyalgia, RLS and depression who presents to the ED today with worsening back pain and increased difficulty getting around safely at home. During her recent admission earlier this month, rehab was recommended by PT but insurance refused to cover to instead pt discharged home with home health. Initially, she felt like she was doing okay but over the last few days, her pain has been increasing and she feels like she is getting weaker, may fall even with using rollator. Work-up in the ED negative for acute pathology but pt unable to be safely discharged home with the severe intractable pain so referred for admission and consideration again for possible placement. - Admit as observation in med surg - PT/OT evaluations - Continue pain regimen as recommended by pain management during last admission - Scheduled for outpatient MICH with Dr. Ahn on 03/30 - hopeful that pt will be able to go through with this procedure as has been helpful for pain previously - Lyme testing equivocal in ED - await f/u testing as well as testing for other potential tick-borne illnesses - Fall precautions. (2) Hypothyroidism: Plan: Continue levothyroxine at current dose (3) HTN (hypertension): Plan: Resume home medications (4) GERD (gastroesophageal reflux disease): (5) ELISSA on CPAP: Plan: Order for pt to use own CPAP placed - she will ask someone to bring to her here to use (6) CKD (chronic kidney disease), stage III: Plan: Baseline creatinine appears to be 1.6-1.7, which is consistent with today's labs (7) Diabetes mellitus, type II: Plan: - Diabetic diet - Baseline lantus, novolog sliding scale - BSG ACHS (8) Chronic diastolic heart failure: Plan: - Continue baseline furosemide BID - fluid status currently appears to be at baseline. No increased CHF symptoms, no change in O2 requirement (9) Chronic respiratory failure: Plan: On 3L O2 at baseline, which is what she is currently using - no recent change in requirement (10) RLS (restless legs syndrome): (11) Fibromyalgia: (12) Major depression, recurrent: Plan: Seen by psychiatry during last admission - PCP was going to titrate her meds as outpatient. For now, will continue what she was on at discharge. Plan Continue other home medications as appropriate Pt seen and reviewed with collaborating physician, Dr. De Leon. Plan of care discussed and as outlined above Code Status: full code DVT Prophylaxis: on Eliquis Jaylen Suarez PA-C History of Present Illness Chief Complaint: Back pain, trouble ambulating Primary Care Provider: Galdino Andujar DO This is a 67 y/o female with a history of chronic respiratory failure due to probable interstitial lung disease, on chronic O2 at 3 L, ELISSA on CPAP, chronic diastolic heart failure, PVD, HTN, hyperlipidemia, insulin-requiring DM, CKD with baseline creatinine ~1.6, prior DVT/PE, s/p IVC filter placement and on Eliquis, hx HIT, hypothyroidism, fibromyalgia, RLS and depression who presents to the ED today with worsening back pain and increased difficulty getting around safely at home. Pt was recently admitted to this facility 03/05-03/11/23 due to worsening pain and muscle soreness as well as increased depressive symptoms. She was evaluated by both psychiatry and pain management with recommended med changes, which were made. Pt has an outpatient MICH scheduled with Dr. Ahn on 03/30 that was originally scheduled for this month but pt was admitted at that time so was unable to go to the appointment. These have helped her pain previously. Rehab was discussed during last admission but it was apparently denied by insurance, even after a [id number], despite being recommended by PT. She was discharged with home health and is a [facility] patient. Pt reports that initially she felt okay at home but has been having increased issues with pain and ambulation over the last few days. Three days ago started with upper back pain - no specific inciting event. Mostly on the left side under the scapula then radiates down her back. Area feels very tight - different from other pain she's been having. She also noted some balance issues last night when she was coming out of the bathroom. She does use a rollator walker at home. Still struggling with the depression - PCP wants to transition her back to sertraline from the duloxetine but pt reports this has not yet happened. She has also noted that her sugars at home have been dropping in the afternoons at home the last few days - has been drinking juice when this happens and felt better. No recent med changes, hadn't skipped any meals. Having head congestion intermittently - uses nasal spray prn. No increased work of breathing or feeling more short of breath. Uses 3L of O2 at baseline - hasn't needed to increase recently. Chills but no fevers. No N/V, diarrhea, constipation. Increased urinary frequency but no dysuria or hematuria. Last admission, increased the gabapentin and the Baclofen but pt unsure if this has helped her pain. Allergies Allergy/AdvReac Type Severity Reaction Status Date / Time morphine Allergy Severe VIOLENT Verified 03/05/23 09:09 REACTION-"ALMOST " SWELLING dapagliflozin [From Farxiga] Allergy Intermediate YEAST Unverified 03/05/23 09:09 INFECTIONS tetanus toxoid, adsorbed Allergy Intermediate PASSED OUT Verified 03/05/23 09:09 AND GOT SICK WHEN A CHILD bupropion [From Wellbutrin] AdvReac Intermediate Recurrent Verified 03/05/23 09:09 falls as per patient codeine AdvReac Intermediate Hallucinati Verified 03/05/23 09:09 ons empagliflozin AdvReac Intermediate YEAST Verified 03/05/23 09:09 [From Jardiance] INFECTIONS heparin AdvReac Intermediate HIT; FLUID Verified 03/05/23 09:09 IN LUNGS hydrocodone [From Vicodin] AdvReac Intermediate sleepiness Verified 03/05/23 09:09 Home Medications Medication Instructions Recorded Confirmed Type levothyroxine 200 mcg tablet 200 mcg PO QAM 06/09/18 03/23/23 History omeprazole 20 mg capsule,delayed 20 mg PO QAM 06/09/18 03/23/23 History release insulin degludec 100 unit/mL (3 58 unit subcut HS 11/24/20 03/23/23 History mL) subcutaneous pen (Tresiba FlexTouch U-100 insulin) dicyclomine 20 mg tablet 20 mg PO QID PRN abdominal pain 03/27/21 03/23/23 History docusate sodium 100 mg capsule 100 mg PO BID PRN Constipation 03/27/21 03/23/23 History (Colace) insulin aspart U-100 100 unit/mL 40 unit subcut DIRECTED 03/27/21 03/23/23 History (3 mL) subcutaneous pen (Novolog FlexPen U-100 Insulin aspart) levothyroxine 50 mcg tablet 50 mcg PO QAM 03/27/21 03/23/23 History meclizine 12.5 mg tablet 12.5 mg PO TID PRN Dizziness 03/27/21 03/23/23 History clonazepam 0.5 mg tablet 0.5 mg PO BID PRN anxiety #0 tabs 03/28/21 03/23/23 Rx ropinirole 2 mg tablet 2 mg PO HS 09/20/21 03/23/23 History dulaglutide 4.5 mg/0.5 mL 4.5 mg subcut WK 10/15/21 03/23/23 History subcutaneous pen injector (Trulicity) potassium chloride 20 mEq 20 meq PO BID 07/14/22 03/23/23 History tablet,extended release(part/cryst) metformin 500 mg tablet,extended 500 mg PO QAM 07/15/22 03/23/23 History release 24 hr furosemide 40 mg tablet 60 mg PO BID #120 tabs 07/22/22 03/23/23 Rx magnesium oxide 400 mg (241.3 mg 400 mg PO BID 08/16/22 03/23/23 History magnesium) tablet acetaminophen 500 mg tablet 500 - 1,000 mg PO Q6H PRN Pain 03/05/23 03/23/23 History apixaban 5 mg tablet (Eliquis) 5 mg PO BID 03/05/23 03/23/23 History cholecalciferol (vitamin D3) 25 25 mcg PO QAM 03/05/23 03/23/23 History mcg (1,000 unit) capsule (Vitamin D3) tramadol 50 mg tablet 50 mg PO TID PRN Pain 03/05/23 03/23/23 History trazodone 100 mg tablet 100 mg PO HS 03/05/23 03/23/23 History baclofen 10 mg tablet 10 mg PO BID PRN muscle spasm #30 03/11/23 03/23/23 Rx tabs gabapentin 300 mg capsule 600 mg PO TID #30 caps 03/11/23 03/23/23 Rx duloxetine 60 mg capsule,delayed 60 mg PO QAM 03/23/23 03/23/23 History release Past Med/Surg History Medical History Acute metabolic encephalopathy Carotid stenosis, right CHF (congestive heart failure) follows with Dr. Woodall CKD (chronic kidney disease), stage III follows with [facility] Depression with anxiety Diabetes mellitus, type II DVT (deep venous thrombosis) at present behind right knee, on Eliquis for this DVT prophylaxis Fibromyalgia Frequent UTI none at present that pt is aware of GERD (gastroesophageal reflux disease) History of DVT (deep vein thrombosis) 2008 due to being in ICU [place] due to pneumonia History of pulmonary embolism 2008 s/p zoraida filter HIT (heparin-induced thrombocytopenia) 2009, [facility] then life flight to [place] > resolved HLD (hyperlipidemia) HTN (hypertension) Hypothyroidism Lower extremity pain, bilateral Lumbago Lumbago with sciatica Morbid obesity Nausea and vomiting after administration of anesthetic agent Neuropathy bilat feet On home oxygen therapy 2-4 continuous ELISSA on CPAP Presence of IVC filter 2008 RLS (restless legs syndrome) Subclavian artery stenosis follows with Dr. Woodall with [facility] Surgical History History of arthroscopy left ankle History of cholecystectomy History of colon resection secondary to R colon perforation, resected treated with colostomy and eventual reversal in 2008, Dr. Lerma History of colonoscopy History of incisional hernia repair History of thyroidectomy, total 2010 History of tooth extraction History of total right knee replacement History of tracheostomy 2008, secondary to acute resp failure secondary to pneumonia, since reversed in 2010 Family History Father , age 74 Lung cancer Mother , age 45 Cirrhosis Social History Smoking Status: Never smoker Tobacco Type: Cigarettes Cigarettes Per Day: 15 pack year hx; Second Hand Exposure: No; Do You Dip or Chew Tobacco: No; Hx Alcohol Use: No Hx Substance Use: No Preferred Language: Slovenian Communication Ability: Effective Portfolio Lead Required: No Beliefs That Will Affect Care: None marital status: Single Current Living Situation: Alone How many Children do You have: 0 Feels Safe at Home: Yes Assistive Devices: Cane, Oxygen - Continuous and Walker Review of Systems Review of Systems: All systems reviewed & are unremarkable except as noted in HPI & below Constitutional: + chills and + fatigue; no fever Eyes: no diplopia Ear, Nose, Mouth, Throat: + nasal congestion Respiratory: as per Subjective / HPI Cardiovascular: no chest pain and no palpitations Gastrointestinal: + bloating; no abdominal pain, no nausea, no vomiting, no constipation and no diarrhea/loose stools Genitourinary: + urinary frequency; no dysuria and no hematuria Musculoskeletal: + back pain, + myalgia and + muscle weakness Integumentary: no yellowing of the skin Neurologic: + unsteadiness and + generalized weakness Psychiatric: + depression and + anxiety Physical Exam Constitutional: + morbidly obese; no acute distress Eyes: + anicteric sclerae Neck: trachea midline Respiratory: no respiratory distress and no labored breathing Auscultation: lungs clear to auscultation bilaterally; no rales and no rhonchi Cardiovascular: Rate/Rhythm: regular rate and regular rhythm Vessels: radial pulses present Extremities: + pedal edema (trace - right > left) Gastrointestinal (Abdomen): Inspection/Auscultation: + abdomen distended and normal bowel sounds Percussion/Palpation: abdomen soft; abdomen nontender Musculoskeletal: Head/Neck/Chest: normocephalic, head atraumatic and neck supple Skin: no jaundice Neurologic: moves all extremities; no focal motor deficits and not confused Psychiatric: Orientation: alert and oriented x 3 Affect: + depressed affect and + tearful affect mood labile during encounter Results & Data Results & Data Vital Signs (Past 12 Hours) Vital Signs Temp Pulse Pulse Resp BP BP Pulse Ox 03/23/23 09:30 84 20 95 03/23/23 09:30 112/58 L 03/23/23 09:00 90 17 97 03/23/23 09:00 147/59 H 03/23/23 08:44 144/48 H 03/23/23 08:44 95 H 20 95 03/23/23 08:42 90 11 L 03/23/23 08:43 89 03/23/23 08:01 78 15 100 03/23/23 08:01 148/70 H 03/23/23 08:00 79 15 98 03/23/23 07:38 86 17 97 03/23/23 07:38 124/76 03/23/23 07:30 73 14 95 03/23/23 07:00 76 18 96 03/23/23 06:54 84 20 95 03/23/23 07:19 80 20 97 03/23/23 06:35 94 H 18 179/79 H 97 03/23/23 06:28 36.9 C 94 H 18 179/79 H 97 O2 Del Method O2 Flow Rate 03/23/23 09:30 Nasal Cannula 3 03/23/23 09:30 03/23/23 09:00 03/23/23 09:00 03/23/23 08:44 03/23/23 08:44 03/23/23 08:42 03/23/23 08:43 03/23/23 08:01 Nasal Cannula 3 03/23/23 08:01 03/23/23 08:00 03/23/23 07:38 03/23/23 07:38 03/23/23 07:30 03/23/23 07:00 03/23/23 06:54 03/23/23 07:19 Nasal Cannula 3 03/23/23 06:35 Nasal Cannula 3 03/23/23 06:28 Nasal Cannula 3 Laboratory Results Laboratory Results - last 24 hr 03/23/23 03/23/23 03/23/23 06:37 06:37 06:37 WBC 10.62 RBC 4.42 Hgb 13.2 Hct 42.0 MCV 95.0 MCH 29.9 MCHC 31.4 L RDW Std Deviation 48.4 H RDW Coeff of Adolfo 13.8 Plt Count 265 MPV 9.7 Immature Gran % (Auto) 0.4 Neut % (Auto) 73.3 Lymph % (Auto) 16.1 Ashley % (Auto) 5.5 Eos % (Auto) 4.0 Baso % (Auto) 0.7 Neut # (Auto) 7.80 H Lymph # (Auto) 1.71 Ashley # (Auto) 0.58 Eos # (Auto) 0.42 Baso # (Auto) 0.07 Immature Gran # (Auto) 0.04 ESR PT Cancelled INR Cancelled APTT Cancelled PTT Ratio Cancelled D-Dimer Cancelled Sodium Potassium Chloride Carbon Dioxide Anion Gap BUN Creatinine Est Cr Clr Drug Dosing Est GFR ( Amer) Est GFR (Non-Af Amer) BUN/Creatinine Ratio Glucose Calcium Total Bilirubin AST ALT Alkaline Phosphatase Troponin I High Sens Total Protein Albumin Globulin Albumin/Globulin Ratio Lipase TSH Urine Color Urine Appearance Urine pH Ur Specific [place] Urine Protein Urine Glucose (UA) Urine Ketones Urine Blood Urine Nitrite Urine Bilirubin Urine Urobilinogen Ur Leukocyte Esterase Urine WBC (Auto) Urine RBC (Auto) U Hyaline Cast (Auto) U Epithel Cells (Auto) Urine Bacteria (Auto) Urine Opiates Screen Ur Methadone, Qual Urine Barbiturates Ur Phencyclidine (PCP) U Amphetamin/Meth Scrn MDMA (Ecstasy) Screen U Benzodiazepines Scrn Ur Cocaine Metabolite U Marijuana (THC) Screen Anaplasma Smear A. phagocytophilum DNA Babesia Smear Babesia microti DNA PCR Lyme Disease IgG Ab Negative Lyme IgG (Western Blot) Lyme IgG 18 kDa Band Lyme IgG 23 kDa Band Lyme IgG 28 kDa Band Lyme IgG 30 kDa Band Lyme IgG 39 kDa Band Lyme IgG 41 kDa Band Lyme IgG 45 kDa Band Lyme IgG 58 kDa Band Lyme IgG 66 kDa Band Lyme IgG 93 kDa Band Lyme IgM Ab (WB) Lyme Disease IgM Ab Equivocal A Lyme IgM 23 kDa Band Lyme IgM 39 kDa Band Lyme IgM 41 kDa Band E.chaffeensis DNA (PCR) SARS-CoV-2, RNA, NAAT 03/23/23 03/23/23 03/23/23 06:37 06:37 06:37 WBC RBC Hgb Hct MCV MCH MCHC RDW Std Deviation RDW Coeff of Adolfo Plt Count MPV Immature Gran % (Auto) Neut % (Auto) Lymph % (Auto) Ashley % (Auto) Eos % (Auto) Baso % (Auto) Neut # (Auto) Lymph # (Auto) Ashley # (Auto) Eos # (Auto) Baso # (Auto) Immature Gran # (Auto) ESR 43 H PT INR APTT PTT Ratio D-Dimer Sodium 139 Potassium 3.4 L Chloride 95 L Carbon Dioxide 35 H Anion Gap 9 BUN 30 H Creatinine 1.68 H Est Cr Clr Drug Dosing 47.3 Est GFR ( Amer) 36.1 Est GFR (Non-Af Amer) 31.1 BUN/Creatinine Ratio 17.9 Glucose 201 H Calcium 9.7 Total Bilirubin 0.4 AST 13 ALT 12 Alkaline Phosphatase 82 Troponin I High Sens 8.0 Total Protein 7.6 Albumin 3.9 Globulin 3.7 Albumin/Globulin Ratio 1.1 Lipase 17 TSH 0.515 Urine Color Urine Appearance Urine pH Ur Specific [place] Urine Protein Urine Glucose (UA) Urine Ketones Urine Blood Urine Nitrite Urine Bilirubin Urine Urobilinogen Ur Leukocyte Esterase Urine WBC (Auto) Urine RBC (Auto) U Hyaline Cast (Auto) U Epithel Cells (Auto) Urine Bacteria (Auto) Urine Opiates Screen Ur Methadone, Qual Urine Barbiturates Ur Phencyclidine (PCP) U Amphetamin/Meth Scrn MDMA (Ecstasy) Screen U Benzodiazepines Scrn Ur Cocaine Metabolite U Marijuana (THC) Screen Anaplasma Smear A. phagocytophilum DNA Babesia Smear Babesia microti DNA PCR Lyme Disease IgG Ab Lyme IgG (Western Blot) Lyme IgG 18 kDa Band Lyme IgG 23 kDa Band Lyme IgG 28 kDa Band Lyme IgG 30 kDa Band Lyme IgG 39 kDa Band Lyme IgG 41 kDa Band Lyme IgG 45 kDa Band Lyme IgG 58 kDa Band Lyme IgG 66 kDa Band Lyme IgG 93 kDa Band Lyme IgM Ab (WB) Lyme Disease IgM Ab Lyme IgM 23 kDa Band Lyme IgM 39 kDa Band Lyme IgM 41 kDa Band E.chaffeensis DNA (PCR) SARS-CoV-2, RNA, NAAT 03/23/23 03/23/23 03/23/23 06:37 06:40 06:40 WBC RBC Hgb Hct MCV MCH MCHC RDW Std Deviation RDW Coeff of Adolfo Plt Count MPV Immature Gran % (Auto) Neut % (Auto) Lymph % (Auto) Ashley % (Auto) Eos % (Auto) Baso % (Auto) Neut # (Auto) Lymph # (Auto) Ashley # (Auto) Eos # (Auto) Baso # (Auto) Immature Gran # (Auto) ESR PT INR APTT PTT Ratio D-Dimer Sodium Potassium Chloride Carbon Dioxide Anion Gap BUN Creatinine Est Cr Clr Drug Dosing Est GFR ( Amer) Est GFR (Non-Af Amer) BUN/Creatinine Ratio Glucose Calcium Total Bilirubin AST ALT Alkaline Phosphatase Troponin I High Sens Total Protein Albumin Globulin Albumin/Globulin Ratio Lipase TSH Urine Color Yellow Urine Appearance Clear Urine pH 6.5 Ur Specific [place] 1.008 Urine Protein Negative Urine Glucose (UA) Negative Urine Ketones Negative Urine Blood Trace H Urine Nitrite Negative Urine Bilirubin Negative Urine Urobilinogen Negative Ur Leukocyte Esterase Trace H Urine WBC (Auto) 1-5 Urine RBC (Auto) 0-4 U Hyaline Cast (Auto) 0 U Epithel Cells (Auto) 0-5 Urine Bacteria (Auto) Negative Urine Opiates Screen Neg Ur Methadone, Qual Neg Urine Barbiturates Neg Ur Phencyclidine (PCP) Neg U Amphetamin/Meth Scrn Neg MDMA (Ecstasy) Screen Neg U Benzodiazepines Scrn Neg Ur Cocaine Metabolite Neg U Marijuana (THC) Screen Neg Anaplasma Smear A. phagocytophilum DNA Babesia Smear Babesia microti DNA PCR Lyme Disease IgG Ab Lyme IgG (Western Blot) Pending Lyme IgG 18 kDa Band Pending Lyme IgG 23 kDa Band Pending Lyme IgG 28 kDa Band Pending Lyme IgG 30 kDa Band Pending Lyme IgG 39 kDa Band Pending Lyme IgG 41 kDa Band Pending Lyme IgG 45 kDa Band Pending Lyme IgG 58 kDa Band Pending Lyme IgG 66 kDa Band Pending Lyme IgG 93 kDa Band Pending Lyme IgM Ab (WB) Pending Lyme Disease IgM Ab Lyme IgM 23 kDa Band Pending Lyme IgM 39 kDa Band Pending Lyme IgM 41 kDa Band Pending E.chaffeensis DNA (PCR) SARS-CoV-2, RNA, NAAT 03/23/23 03/23/23 03/23/23 09:39 09:39 09:39 WBC RBC Hgb Hct MCV MCH MCHC RDW Std Deviation RDW Coeff of Adolfo Plt Count MPV Immature Gran % (Auto) Neut % (Auto) Lymph % (Auto) Ashley % (Auto) Eos % (Auto) Baso % (Auto) Neut # (Auto) Lymph # (Auto) Ashley # (Auto) Eos # (Auto) Baso # (Auto) Immature Gran # (Auto) ESR PT 11.1 INR 1.0 APTT 27.9 PTT Ratio 1.0 D-Dimer 290 Sodium Potassium Chloride Carbon Dioxide Anion Gap BUN Creatinine Est Cr Clr Drug Dosing Est GFR ( Amer) Est GFR (Non-Af Amer) BUN/Creatinine Ratio Glucose Calcium Total Bilirubin AST ALT Alkaline Phosphatase Troponin I High Sens Total Protein Albumin Globulin Albumin/Globulin Ratio Lipase TSH Urine Color Urine Appearance Urine pH Ur Specific [place] Urine Protein Urine Glucose (UA) Urine Ketones Urine Blood Urine Nitrite Urine Bilirubin Urine Urobilinogen Ur Leukocyte Esterase Urine WBC (Auto) Urine RBC (Auto) U Hyaline Cast (Auto) U Epithel Cells (Auto) Urine Bacteria (Auto) Urine Opiates Screen Ur Methadone, Qual Urine Barbiturates Ur Phencyclidine (PCP) U Amphetamin/Meth Scrn MDMA (Ecstasy) Screen U Benzodiazepines Scrn Ur Cocaine Metabolite U Marijuana (THC) Screen Anaplasma Smear See Comment A. phagocytophilum DNA Babesia Smear See Comment Babesia microti DNA PCR Lyme Disease IgG Ab Lyme IgG (Western Blot) Lyme IgG 18 kDa Band Lyme IgG 23 kDa Band Lyme IgG 28 kDa Band Lyme IgG 30 kDa Band Lyme IgG 39 kDa Band Lyme IgG 41 kDa Band Lyme IgG 45 kDa Band Lyme IgG 58 kDa Band Lyme IgG 66 kDa Band Lyme IgG 93 kDa Band Lyme IgM Ab (WB) Lyme Disease IgM Ab Lyme IgM 23 kDa Band Lyme IgM 39 kDa Band Lyme IgM 41 kDa Band E.chaffeensis DNA (PCR) Pending SARS-CoV-2, RNA, NAAT 03/23/23 03/23/23 03/23/23 09:39 09:39 10:15 WBC RBC Hgb Hct MCV MCH MCHC RDW Std Deviation RDW Coeff of Adolfo Plt Count MPV Immature Gran % (Auto) Neut % (Auto) Lymph % (Auto) Ashley % (Auto) Eos % (Auto) Baso % (Auto) Neut # (Auto) Lymph # (Auto) Ashley # (Auto) Eos # (Auto) Baso # (Auto) Immature Gran # (Auto) ESR PT INR APTT PTT Ratio D-Dimer Sodium Potassium Chloride Carbon Dioxide Anion Gap BUN Creatinine Est Cr Clr Drug Dosing Est GFR ( Amer) Est GFR (Non-Af Amer) BUN/Creatinine Ratio Glucose Calcium Total Bilirubin AST ALT Alkaline Phosphatase Troponin I High Sens Total Protein Albumin Globulin Albumin/Globulin Ratio Lipase TSH Urine Color Urine Appearance Urine pH Ur Specific [place] Urine Protein Urine Glucose (UA) Urine Ketones Urine Blood Urine Nitrite Urine Bilirubin Urine Urobilinogen Ur Leukocyte Esterase Urine WBC (Auto) Urine RBC (Auto) U Hyaline Cast (Auto) U Epithel Cells (Auto) Urine Bacteria (Auto) Urine Opiates Screen Ur Methadone, Qual Urine Barbiturates Ur Phencyclidine (PCP) U Amphetamin/Meth Scrn MDMA (Ecstasy) Screen U Benzodiazepines Scrn Ur Cocaine Metabolite U Marijuana (THC) Screen Anaplasma Smear A. phagocytophilum DNA Pending Babesia Smear Babesia microti DNA PCR Pending Lyme Disease IgG Ab Lyme IgG (Western Blot) Lyme IgG 18 kDa Band Lyme IgG 23 kDa Band Lyme IgG 28 kDa Band Lyme IgG 30 kDa Band Lyme IgG 39 kDa Band Lyme IgG 41 kDa Band Lyme IgG 45 kDa Band Lyme IgG 58 kDa Band Lyme IgG 66 kDa Band Lyme IgG 93 kDa Band Lyme IgM Ab (WB) Lyme Disease IgM Ab Lyme IgM 23 kDa Band Lyme IgM 39 kDa Band Lyme IgM 41 kDa Band E.chaffeensis DNA (PCR) SARS-CoV-2, RNA, NAAT NEGATIVE Diagnostic Findings Chest X-Ray 03/23/23 07:19 XR chest 1V portable CLINICAL HISTORY: Chest pain, nonspecific. COMPARISON STUDY: Chest radiograph July 29, 2022. Chest CT September 24, 2021. FINDINGS: There is no pneumothorax or pleural effusion. Cardiomegaly is unchanged. Interstitial thickening is likely chronic. No consolidation is identified to suggest superimposed pneumonia. Patchy airspace opacities shown on prior chest radiograph have resolved. IMPRESSION: 1. No acute cardiopulmonary findings. Stable cardiomegaly. 2. Interstitial thickening, likely chronic. Abdomen/Pelvis CT 03/23/23 07:48 CT OF THE ABDOMEN AND PELVIS WITHOUT CONTRAST CLINICAL HISTORY: Lower abdominal pain. Hematuria. COMPARISON STUDY: CT of the abdomen and pelvis September 19, 2022. TECHNIQUE: Axial images of the abdomen and pelvis were obtained without IV contrast. Images were reviewed in the axial, sagittal, and coronal planes. Automated exposure control was utilized for the study. A dose lowering technique was utilized adhering to the principles of ALARA. FINDINGS: Interstitial thickening within the lower lungs is likely chronic. No pneumatosis, free air or portal venous gas is present. Moderate right hydronephrosis is noted with normal caliber right ureter. This has minimally increased since CT. This favors a congenital UPJ obstruction. There is no left hydronephrosis. There are no urinary calculi. Sensitivity for detection of urothelial lesions is diminished on this unenhanced exam but none are identified. A presacral nodule remains unchanged. There is no evidence for a bowel obstruction. Several bowel containing ventral hernias are again noted. The appearance is similar to prior CT. There is no ascites. Mild splenomegaly is unchanged. Unenhanced images of the liver, adrenal glands and pancreas are unremarkable. There is no biliary ductal dilatation status post cholecystectomy IVC filter is in place. No acute fractures are identified. Jejunal diverticula are noted without evidence for acute diverticulitis. IMPRESSION: 1. No urinary calculi. Redemonstration of moderate right hydronephrosis, slightly increased since prior CT. This favors a congenital UPJ type obstruction. 2. No acute process within the abdomen or pelvis on unenhanced exam. 3. Multiple bowel containing ventral hernias without bowel obstruction. Medications Administered Discontinued Medications Acetaminophen (Ofirmev) 1,000 mg in 100 mls @ 400 mls/hr IV NOW STA Stop: 03/23/23 07:32 Last Infusion: 03/23/23 07:50 Dose: 0 mls/hr Documented By: Admin: 03/23/23 07:34 Dose: 400 mls/hr Documented By: RSZuleyma Sodium Chloride (Nss 1000ml) 1,000 mls @ 999 mls/hr IV .Q1H1M ONE Stop: 03/23/23 08:21 Last Infusion: 03/23/23 08:29 Dose: 0 mls/hr Documented By: Admin: 03/23/23 07:35 Dose: 999 mls/hr Documented By: RSZuleyma Ondansetron HCl (Ondansetron Inj 2 Mg/Ml 2 Ml Vial) 4 mg IV NOW STA Stop: 03/23/23 07:19 Last Admin: 03/23/23 07:35 Dose: 4 mg Documented By: RSZuleyma Code Status & VTE Plan VTE Prophylaxis Plan VTE Prophylaxis will be ordered: Yes Supervising Physician Co-Signing Physician Notes Pt was seen and examined. Agreed with Tiny CLEARY exam, assessment and plan. 67 y/o female with a history of chronic respiratory failure due to probable interstitial lung disease, on chronic O2 at 3 L, ELISSA on CPAP, chronic diastolic heart failure, PVD, HTN, hyperlipidemia, insulin-requiring DM, CKD with baseline creatinine ~1.6, prior DVT/PE, s/p IVC filter placement and on Eliquis, hx HIT, hypothyroidism, fibromyalgia, RLS and depression who presents to the ED today with worsening back pain and increased difficulty getting around safely at home. Pt was recently admitted to this facility 03/05-03/11/23 due to worsening pain and muscle soreness as well as increased depressive symptoms.Will monitor in the hospital. Continue pain regimen as recommended by pain management during last admission. Will follow up lyme titer that was collected in in the ER. Fall precaution. PT/OT eval. Haley MD (7) Diabetes mellitus, type II Diabetes mellitus complication status: with other specified complication Diabetes mellitus exterminator termite insulin use: with exterminator termite use Qualified Code(s): E11.69 - Type 2 diabetes mellitus with other specified complication; Z79.4 - [facility] (current) use of insulin
--- NOTE | 2023-03-23 12:32 | Electrocardiogram Report ---
Test Reason : Blood Pressure : / mmHG Vent. Rate : 097 BPM Atrial Rate : 097 BPM P-R Int : 200 ms QRS Dur : 056 ms QT Int : 338 ms P-R-T Axes : 073 010 019 degrees QTc Int : 429 ms Poor data quality, interpretation may be adversely affected Sinus rhythm Normal ECG When compared with ECG of 19-SEP-2022 21:00, No significant change Confirmed by Dean Reid ([id number]) on 03/23/2023 12:32:00 PM Referred By: REFERRED SELF Confirmed By:Dean Reid
[2023-03-23] MEDS ORDERED: DOCUSATE SODIUM 100 MG CAP PO PRN (16:25)
[2023-03-23] MEDS ORDERED: DICYCLOMINE HCL 20 MG TAB PO PRN (16:25)
[2023-03-23] MEDS ORDERED: GLUCOSE 10 TAB/TUBE PO PRN (17:00)
[2023-03-23] MEDS ORDERED: DEXTROSE 50% 50 ML SYRINGE IV PRN (17:00)
[2023-03-23] MEDS ORDERED: CARBOHYDRATES FOR HYPOGLYCEMIA PO PRN (17:00)
[2023-03-23] MEDS ORDERED: GLUCAGON FOR INJ 1 MG VIAL SQ PRN (17:00)
[2023-03-23] MEDS ORDERED: GLUCOSE 40% GEL 15 GM TUBE PO PRN (17:00)
[2023-03-23] MEDS: traMADol HCL 50 MG TABLET PO PRN (17:30)
[2023-03-23] MEDS: ACETAMINOPHEN 500 MG TAB PO PRN (17:31)
[2023-03-23] MEDS: INSULIN ASPART PER UNIT CHARGE SC SCH (20:30)
[2023-03-23] MEDS: LANTUS PER UNIT CHARGE SQ SCH (20:30)
[2023-03-23] MEDS: GABAPENTIN 300 MG CAP PO SCH (20:34)
[2023-03-23] MEDS: LIDOCAINE 5% 1 PATCH TD SCH (20:34)
[2023-03-23] MEDS: APIXABAN 5 MG TABLET PO SCH (20:35)
[2023-03-23] MEDS: rOPINIRole HCL 2 MG TABLET PO SCH (20:35)
[2023-03-23] MEDS: MAGNESIUM OXIDE 400 MG TAB PO SCH (20:35)
[2023-03-23] MEDS: traZODone HCL 100 MG TAB PO SCH (20:35)
[2023-03-23] MEDS: clonazePAM 0.5 MG TAB PO PRN (20:35)
[2023-03-23] MEDS: FUROSEMIDE 20 MG TAB PO SCH (20:36)
[2023-03-23] MEDS: POTASSIUM CHLORIDE CRTAB 20 MEQ TABCR PO SCH (20:37)
[2023-03-23] MEDS: BACLOFEN 10 MG TAB PO PRN (21:58)
[2023-03-24] MEDS: oxyCODONE HCL IR 5 MG TAB (IMMEDIATE RELEASE) PO PRN ×4 (00:28→17:59)
[2023-03-24] MEDS: LEVOTHYROXINE SODIUM 200 MCG TABLET PO SCH (05:41)
[2023-03-24] MEDS: LEVOTHYROXINE SODIUM 50 MCG TABLET PO SCH (05:41)
[2023-03-24] MEDS: BACLOFEN 10 MG TAB PO PRN (08:18)
[2023-03-24] MEDS: clonazePAM 0.5 MG TAB PO PRN ×2 (08:18→21:34)
[2023-03-24] MEDS: ACETAMINOPHEN 500 MG TAB PO PRN (08:18)
[2023-03-24] MEDS: APIXABAN 5 MG TABLET PO SCH ×2 (08:19→21:29)
[2023-03-24] MEDS: MAGNESIUM OXIDE 400 MG TAB PO SCH ×2 (08:19→21:31)
[2023-03-24] MEDS: PANTOprazole 40 MG TAB PO SCH (08:20)
[2023-03-24] MEDS: DULoxetine HCL 60 MG CAP PO SCH (08:20)
[2023-03-24] MEDS: CHOLECALCIFEROL 1,000 UNITS 25 MCG TAB PO SCH (08:21)
[2023-03-24] MEDS: GABAPENTIN 300 MG CAP PO SCH ×3 (08:21→21:32)
[2023-03-24] MEDS: POTASSIUM CHLORIDE CRTAB 20 MEQ TABCR PO SCH ×2 (08:22→21:31)
[2023-03-24] MEDS: FUROSEMIDE 20 MG TAB PO SCH ×2 (08:23→21:31)
[2023-03-24] MEDS: INSULIN ASPART PER UNIT CHARGE SC SCH ×4 (08:28→21:33)
[2023-03-24] MEDS: LANTUS PER UNIT CHARGE SQ SCH ×2 (08:29→21:33)
[2023-03-24 09:01] LABS: BUN Creatinine Ratio 17.3 (10-20); Calcium 9.1 mg/dl (8.6-10.3); Creatinine Clr Calc Pharmacy 49.1 ml/min; Est GFR (African American) 37.7 ml/min; Est GFR (Non-African American) 32.5 ml/min; Magnesium 1.7 mg/dl (1.7-2.4); Potassium 4.1 mmol/L (3.5-5.1)
[2023-03-24] MEDS: traMADol HCL 50 MG TABLET PO PRN (10:41)
--- NOTE | 2023-03-24 13:04 | XRay Report ---
XR sacrum coccyx min 2V CLINICAL HISTORY: Back Pain TECHNIQUE: 2 views of the sacrococcygeal spine were obtained. Comparison: Comparison is made to CT abdomen pelvis 03/23/2023 FINDINGS: No fractures or subluxations are identified. Alignment appears unremarkable. IMPRESSION: No acute abnormality and in particular no evidence of acute fracture. ACT 112: Negative or not required by law. Electronically signed by: Mook Guido M.D. 03/24/2023 1:02 PM
--- NOTE | 2023-03-24 14:00 | XRay Report ---
LUMBAR SPINE 3 VIEWS CLINICAL HISTORY: Low back pain. FINDINGS: 3 views of the lumbar spine are compared to study dated 11/24/2020 and correlated with abdomi nal CT dated 03/23/2023. The skeletal structures are osteopenic. There is no radiographic evidence of fracture or malalignment involving the lumbar spine. Vertebral body height and alignment are maintain ed. Large anterior and lateral marginal osteophytes are seen throughout. The transverse and spinous p rocesses appear intact. Facet arthropathy is seen in the mid to lower lumbar spine. There is multilev el degenerative disc space narrowing and vacuum phenomenon seen throughout the lumbar spine. Loss of height is moderate to severe at all levels between T12-L1 and L3-L4. Posterior disc osteophyte comple xes are seen at several levels. The visualized bony pelvis appears intact. Sclerotic change is noted in the sacroiliac joints. An IVC filter is in place. There is no bowel obstruction. Advanced atheros clerotic calcification is noted in the abdominal aorta. Cholecystectomy clips are seen in the right u pper quadrant. IMPRESSION: 1. No acute bony abnormality is seen involving the lumbar spine. 2. Osteopenia and spondylotic change as above. Dictated: 03/24/2023 1:37 PM Transcribed: 03/24/2023 1:50 PM Rosamaria [id number] Electronically signed by: Zachariah Borden M.D. 03/24/2023 1:58 PM
[2023-03-24] MEDS: MAGNESIUM HYDROXIDE SUSP 30 ML UDC PO PRN (16:15)
[2023-03-24 16:43] LABS: 18KDIGG Band NON-REACTIVE; 23KDIGG Band NON-REACTIVE; 23KDIGM Band NON-REACTIVE; 28KDIGG Band NON-REACTIVE; 30KDIGG Band NON-REACTIVE; 39KDIGG Band NON-REACTIVE; 39KDIGM Band NON-REACTIVE; 41KDIGG Band REACTIVE; 41KDIGM Band NON-REACTIVE; 45KDIGG Band NON-REACTIVE; 58KDIGG Band REACTIVE; 66KDIGG Band NON-REACTIVE; 93KDIGG Band REACTIVE; Lyme Antibodies, WB IgG NEGATIVE (NEGATIVE); Lyme Antibodies, WB IgM NEGATIVE (NEGATIVE)
[2023-03-24] MEDS ORDERED: MECLIZINE 12.5 MG TAB PO PRN (17:01)
--- NOTE | 2023-03-24 17:45 | Hospitalist Progress Note ---
Date of Service March 24, 2023 Assessment & Plan (1) Intractable back pain: Plan: This is a 67 y/o female with a history of chronic respiratory failure due to probable interstitial lung disease, on chronic O2 at 3 L, ELISSA on CPAP, chronic diastolic heart failure, PVD, HTN, hyperlipidemia, insulin-requiring DM, CKD with baseline creatinine ~1.6, prior DVT/PE, s/p IVC filter placement and on Eliquis, hx HIT, hypothyroidism, fibromyalgia, RLS and depression who presents to the ED today with worsening back pain and increased difficulty getting around safely at home. During her recent admission earlier this month, rehab was recommended by PT but insurance refused to cover to instead pt discharged home with home health. Initially, she felt like she was doing okay but over the last few days, her pain has been increasing and she feels like she is getting weaker, may fall even with using rollator. Work-up in the ED negative for acute pathology but pt unable to be safely discharged home with the severe intractable pain so referred for admission and consideration again for possible placement. Intractable back pain H/O sciatica per patient H/O fibromyalgia Ambulatory dysfunction secondary to above --Lumbar X ray:No acute bony abnormality is seen involving the lumbar spine. Osteopenia and spondylotic change as above. --Sacrum X ray:No acute abnormality and in particular no evidence of acute fracture. Follows with pain management as outpatient Fall precautions, PT OT Consulted pain management for possible MICH Continue gabapentin, duloxetine, baclofen as needed Also on oxycodone as needed Abnormality serology for Lyme's disease No signs of acute infection IgM Western blot for Lyme's negative No indication for treatment currently Urinary tract infection-POA Outpatient urine culture from 03/21/2023 grew Citrobacter freundii (resistant to cefoxitin, ceftriaxone, Zosyn) Since due to cefepime, Cipro, gentamicin, meropenem, nitrofurantoin, Bactrim Started on ciprofloxacin Constipation Continue bowel regimen (2) Hypothyroidism: Plan: Continue levothyroxine (3) HTN (hypertension): Plan: Not on any meds Consider adding antihypertensives if blood pressure persistently elevated (4) GERD (gastroesophageal reflux disease): Plan: Continue Protonix (5) ELISSA on CPAP: Plan: CPAP at bedtime (6) CKD (chronic kidney disease), stage III: Plan: Baseline Cr 1.6-1.7 Monitor renal function Avoid nephrotoxic agents as able (7) Diabetes mellitus, type II: Plan: - Diabetic diet - Baseline lantus, novolog sliding scale - BSG ACHS (8) Chronic diastolic heart failure: Plan: - Continue Lasix Monitor volume status (9) Chronic respiratory failure: Plan: Chronic respiratory failure with hypoxia H/O ILD On 3L O2 at baseline (10) RLS (restless legs syndrome): (11) Fibromyalgia: (12) Major depression, recurrent: Plan: Continue home medication Plan DVT Px: Eliquis Code Status: Full code Admission and Anticipated Discharge Date Admission Date: March 23, 2023 Subjective Patient is seen and examined at bedside States having significant back pain which radiates down her left lower extremity causing ambulatory dysfunction Also reports constipation Denies any chest pain, dyspnea, dizziness, nausea, vomiting, abdominal pain No other complaints Review of Systems Review of Systems: All systems reviewed & are unremarkable except as noted in Subjective Physical Exam Constitutional: Physical Exam: Vitals signs as noted above General Appearance:Morbidly Obese, no apparent distress Head: normocephalic, Atraumatic Eyes: normal inspection, EOMI Neck: supple, Trachea midline Respiratory/Chest: Decreased breath sounds, minimal crackles, No accessory muscle use Cardiovascular: S1, S2, No murmur Abdomen/GI:Soft, Non tender, Bowel sounds present Extremities/Musculoskeletal:normal inspection, 1+ B/L LE edema Neurologic/Psych:AAOX3, grossly no focal neurological deficits Skin: normal color, warm Results & Data Results & Data Vital Signs (Past 12 Hours) Vital Signs Temp Pulse Resp BP Pulse Ox O2 Del Method O2 Flow Rate 03/24/23 15:54 36.6 C 84 16 149/71 H 96 Nasal Cannula 03/24/23 11:04 95 03/24/23 07:51 36.7 C 76 18 106/58 L 94 Nasal Cannula 3 03/24/23 07:38 Nasal Cannula Laboratory Results BMP 03/24/23 08:09 Sodium 139 Potassium 4.1 D Chloride 98 Carbon Dioxide 36 H BUN 28 H Creatinine 1.62 H Glucose 170 H Calcium 9.1 (7) Diabetes mellitus, type II Diabetes mellitus complication status: with other specified complication Diabetes mellitus group home insulin use: with impregnating machine operator use Qualified Code(s): E11.69 - Type 2 diabetes mellitus with other specified complication; Z79.4 - industrial psychology teacher (current) use of insulin
[2023-03-24] MEDS: LIDOCAINE 5% 1 PATCH TD SCH (21:21)
[2023-03-24] MEDS: CIPROFLOXACIN 500 MG TAB PO SCH (21:30)
[2023-03-24] MEDS: rOPINIRole HCL 2 MG TABLET PO SCH (21:32)
[2023-03-24] MEDS: traZODone HCL 100 MG TAB PO SCH (21:32)
[2023-03-24] MEDS ORDERED: LORATADINE 10 MG TAB PO ONE (21:50)
[2023-03-25] MEDS: oxyCODONE HCL IR 5 MG TAB (IMMEDIATE RELEASE) PO PRN ×2 (03:14→08:38)
[2023-03-25] MEDS: LEVOTHYROXINE SODIUM 50 MCG TABLET PO SCH (05:09)
[2023-03-25] MEDS: BACLOFEN 10 MG TAB PO PRN (05:09)
[2023-03-25] MEDS: LEVOTHYROXINE SODIUM 200 MCG TABLET PO SCH (05:09)
[2023-03-25] MEDS: traMADol HCL 50 MG TABLET PO PRN (05:48)
[2023-03-25 06:48] LABS: Hematocrit (blood only) 38.1 % (37.0-47.0); Hemoglobin 12.3 g/dl (12.0-16.0); Mean Corpuscular Hemoglobin 30.1 pg (25.0-34.0); Mean Corpuscular Hgb Conc 32.3 g/dL (32.0-36.0); Mean Corpuscular Volume 93.2 fL (80.0-100.0); Mean Platelet Volume 9.8 fL (9.4-12.4); Platelet Count 265 K/uL (130-400); RDW Coefficient of Variation 13.8 % (11.5-14.5); RDW Standard Deviation 46.8 fL (36.4-46.3); Red Blood Count 4.09 M/uL (4.20-5.40); White Blood Count 8.34 K/ul (4.8-10.8)
[2023-03-25 07:20] LABS: Calcium 9.1 mg/dl (8.6-10.3); Magnesium 1.8 mg/dl (1.7-2.4); Potassium 3.8 mmol/L (3.5-5.1)
[2023-03-25 07:26] LABS: Creatinine Clr Calc Pharmacy 49.7 ml/min; Est GFR (African American) 38.2 ml/min
[2023-03-25] MEDS: DULoxetine HCL 60 MG CAP PO SCH (09:05)
[2023-03-25] MEDS: GABAPENTIN 300 MG CAP PO SCH ×3 (09:05→21:16)
[2023-03-25] MEDS: MAGNESIUM OXIDE 400 MG TAB PO SCH ×2 (09:06→21:16)
[2023-03-25] MEDS: FUROSEMIDE 20 MG TAB PO SCH ×2 (09:06→21:17)
[2023-03-25] MEDS: CIPROFLOXACIN 500 MG TAB PO SCH ×2 (09:07→21:16)
[2023-03-25] MEDS: CHOLECALCIFEROL 1,000 UNITS 25 MCG TAB PO SCH (09:07)
[2023-03-25] MEDS: POTASSIUM CHLORIDE CRTAB 20 MEQ TABCR PO SCH ×2 (09:08→21:16)
[2023-03-25] MEDS: PANTOprazole 40 MG TAB PO SCH (09:08)
[2023-03-25] MEDS: APIXABAN 5 MG TABLET PO SCH ×2 (09:09→21:16)
[2023-03-25] MEDS: INSULIN ASPART PER UNIT CHARGE SC SCH ×4 (09:11→21:23)
[2023-03-25] MEDS: LANTUS PER UNIT CHARGE SQ SCH ×2 (09:13→21:23)
[2023-03-25] MEDS: clonazePAM 0.5 MG TAB PO PRN ×2 (09:20→21:23)
[2023-03-25] MEDS ORDERED: bisacodyL 10 MG SUPP PR PRN (11:24)
[2023-03-25] MEDS: SENNA 8.6 MG TAB PO SCH (12:06)
[2023-03-25] MEDS: bisacodyL 10 MG SUPP PR ONE ×2 (12:06→12:52)
--- NOTE | 2023-03-25 16:07 | Hospitalist Progress Note ---
Date of Service March 25, 2023 Assessment & Plan (1) Intractable back pain: Plan: This is a 67 y/o female with a history of chronic respiratory failure due to probable interstitial lung disease, on chronic O2 at 3 L, ELISSA on CPAP, chronic diastolic heart failure, PVD, HTN, hyperlipidemia, insulin-requiring DM, CKD with baseline creatinine ~1.6, prior DVT/PE, s/p IVC filter placement and on Eliquis, hx HIT, hypothyroidism, fibromyalgia, RLS and depression who presents to the ED today with worsening back pain and increased difficulty getting around safely at home. During her recent admission earlier this month, rehab was recommended by PT but insurance refused to cover to instead pt discharged home with home health. Initially, she felt like she was doing okay but over the last few days, her pain has been increasing and she feels like she is getting weaker, may fall even with using rollator. Work-up in the ED negative for acute pathology but pt unable to be safely discharged home with the severe intractable pain so referred for admission and consideration again for possible placement. Intractable back pain H/O sciatica per patient H/O fibromyalgia Ambulatory dysfunction secondary to above --Lumbar X ray:No acute bony abnormality is seen involving the lumbar spine. Osteopenia and spondylotic change as above. --Sacrum X ray:No acute abnormality and in particular no evidence of acute fracture. Follows with pain management as outpatient--scheduled for epidural steroid injection by Dr. Ahn on March 30 Fall precautions, PT OT Discussed with pain management on 03/25/2023: Advised to continue current management, PT Continue gabapentin, duloxetine, baclofen as needed Also on oxycodone as needed Plan to discharge to rehab facility when accepted Abnormality serology for Lyme's disease No signs of acute infection IgM Western blot for Lyme's negative No indication for treatment currently Urinary tract infection-POA Outpatient urine culture from 03/21/2023 grew Citrobacter freundii (resistant to cefoxitin, ceftriaxone, Zosyn) Since due to cefepime, Cipro, gentamicin, meropenem, nitrofurantoin, Bactrim Continue ciprofloxacin Constipation Continue bowel regimen Morbid obesity BMI 53 (2) Hypothyroidism: Plan: Continue levothyroxine (3) HTN (hypertension): Plan: Not on any meds Consider adding antihypertensives if blood pressure persistently elevated (4) GERD (gastroesophageal reflux disease): Plan: Continue Protonix (5) ELISSA on CPAP: Plan: CPAP at bedtime (6) CKD (chronic kidney disease), stage III: Plan: Baseline Cr 1.6-1.7 Monitor renal function Avoid nephrotoxic agents as able (7) Diabetes mellitus, type II: Plan: - Diabetic diet - Baseline lantus, novolog sliding scale - BSG ACHS (8) Chronic diastolic heart failure: Plan: - Continue Lasix Monitor volume status (9) Chronic respiratory failure: Plan: Chronic respiratory failure with hypoxia H/O ILD On 3L O2 at baseline (10) RLS (restless legs syndrome): (11) Fibromyalgia: (12) Major depression, recurrent: Plan: Continue home medication Plan DVT Px: Eliquis Code Status: Full code Disposition Rehab when accepted Admission and Anticipated Discharge Date Admission Date: March 24, 2023 Subjective Patient is seen and examined at bedside Reports persistent back pain Also reports constipation Discussed with pain management today Denies any chest pain, dyspnea, dizziness, nausea, vomiting, abdominal pain Needs rehab placement Review of Systems Review of Systems: All systems reviewed & are unremarkable except as noted in Subjective Physical Exam Physical Exam: Physical Exam: Vitals signs as noted above General Appearance:Morbidly Obese, no apparent distress Head: normocephalic, Atraumatic Eyes: normal inspection, EOMI Neck: supple, Trachea midline Respiratory/Chest: Decreased breath sounds, minimal crackles, No accessory muscle use Cardiovascular: S1, S2, No murmur Abdomen/GI:Soft, Non tender, Bowel sounds present Extremities/Musculoskeletal:normal inspection, 1+ B/L LE edema Neurologic/Psych:AAOX3, grossly no focal neurological deficits Skin: normal color, warm Results & Data Results & Data Vital Signs (Past 12 Hours) Vital Signs Temp Pulse Resp BP Pulse Ox O2 Del Method O2 Flow Rate 03/25/23 15:34 36.7 C 77 16 147/74 H 97 Nasal Cannula 3 03/25/23 08:20 Nasal Cannula 3 03/25/23 08:03 36.8 C 77 16 128/65 97 Room Air Laboratory Results Short CBC 03/25/23 Range/Units 06:11 WBC 8.34 (4.8-10.8) K/ul Hgb 12.3 (12.0-16.0) g/dl Hct 38.1 (37.0-47.0) % Plt Count 265 (130-400) K/uL BMP 03/25/23 06:11 Sodium 137 Potassium 3.8 Chloride 98 Carbon Dioxide 32 BUN 32 H Creatinine 1.60 H Glucose 146 H Calcium 9.1 (7) Diabetes mellitus, type II Diabetes mellitus complication status: with other specified complication Diabetes mellitus long lines operator insulin use: with long lines operator use Qualified Code(s): E11.69 - Type 2 diabetes mellitus with other specified complication; Z79.4 - [facility] (current) use of insulin
[2023-03-25] MEDS: LIDOCAINE 5% 1 PATCH TD SCH (18:43)
[2023-03-25] MEDS: rOPINIRole HCL 2 MG TABLET PO SCH (21:16)
[2023-03-25] MEDS: traZODone HCL 100 MG TAB PO SCH (21:16)
[2023-03-26] MEDS: oxyCODONE HCL IR 5 MG TAB (IMMEDIATE RELEASE) PO PRN ×3 (00:18→20:43)
[2023-03-26] MEDS: LEVOTHYROXINE SODIUM 200 MCG TABLET PO SCH (06:03)
[2023-03-26] MEDS: LEVOTHYROXINE SODIUM 50 MCG TABLET PO SCH (06:03)
[2023-03-26 07:45] LABS: BUN Creatinine Ratio 19.5 (10-20); Est GFR (African American) 38.5 ml/min; Est GFR (Non-African American) 33.3 ml/min; Magnesium 1.8 mg/dl (1.7-2.4); Potassium 3.5 mmol/L (3.5-5.1)
[2023-03-26] MEDS: APIXABAN 5 MG TABLET PO SCH ×2 (08:29→20:39)
[2023-03-26] MEDS: POTASSIUM CHLORIDE CRTAB 20 MEQ TABCR PO SCH ×2 (08:29→20:39)
[2023-03-26] MEDS: MAGNESIUM OXIDE 400 MG TAB PO SCH ×2 (08:29→20:39)
[2023-03-26] MEDS: CIPROFLOXACIN 500 MG TAB PO SCH ×2 (08:29→20:39)
[2023-03-26] MEDS: FUROSEMIDE 20 MG TAB PO SCH ×2 (08:30→20:39)
[2023-03-26] MEDS: PANTOprazole 40 MG TAB PO SCH (08:30)
[2023-03-26] MEDS: DULoxetine HCL 60 MG CAP PO SCH (08:30)
[2023-03-26] MEDS: GABAPENTIN 300 MG CAP PO SCH ×3 (08:30→20:39)
[2023-03-26] MEDS: CHOLECALCIFEROL 1,000 UNITS 25 MCG TAB PO SCH (08:30)
[2023-03-26] MEDS: SENNA 8.6 MG TAB PO SCH (08:31)
[2023-03-26] MEDS: INSULIN ASPART PER UNIT CHARGE SC SCH ×4 (08:43→20:50)
[2023-03-26] MEDS: LANTUS PER UNIT CHARGE SQ SCH ×2 (08:43→20:50)
[2023-03-26] MEDS: clonazePAM 0.5 MG TAB PO PRN ×2 (08:43→20:43)
[2023-03-26 09:02] LABS: Babesia microti DNA Not Detected (Not Detected)
[2023-03-26] MEDS: MAGNESIUM HYDROXIDE SUSP 30 ML UDC PO PRN (09:57)
[2023-03-26] MEDS ORDERED: POLYETHYLENE (MIRALAX) 17 GM PACK PO ONE (12:21)
[2023-03-26] MEDS ORDERED: bisacodyL 5 MG TABEC PO PRN (12:22)
--- NOTE | 2023-03-26 17:16 | Hospitalist Progress Note ---
Date of Service March 26, 2023 Assessment & Plan (1) Intractable back pain: Plan: This is a 67 y/o female with a history of chronic respiratory failure due to probable interstitial lung disease, on chronic O2 at 3 L, ELISSA on CPAP, chronic diastolic heart failure, PVD, HTN, hyperlipidemia, insulin-requiring DM, CKD with baseline creatinine ~1.6, prior DVT/PE, s/p IVC filter placement and on Eliquis, hx HIT, hypothyroidism, fibromyalgia, RLS and depression who presents to the ED today with worsening back pain and increased difficulty getting around safely at home. During her recent admission earlier this month, rehab was recommended by PT but insurance refused to cover to instead pt discharged home with home health. Initially, she felt like she was doing okay but over the last few days, her pain has been increasing and she feels like she is getting weaker, may fall even with using rollator. Work-up in the ED negative for acute pathology but pt unable to be safely discharged home with the severe intractable pain so referred for admission and consideration again for possible placement. Intractable back pain H/O sciatica per patient H/O fibromyalgia Ambulatory dysfunction secondary to above --Lumbar X ray:No acute bony abnormality is seen involving the lumbar spine. Osteopenia and spondylotic change as above. --Sacrum X ray:No acute abnormality and in particular no evidence of acute fracture. Follows with pain management as outpatient--scheduled for epidural steroid injection by Dr. Ahn on March 30 Fall precautions, PT OT Discussed with pain management on 03/25/2023: Advised to continue current management, PT Continue gabapentin, duloxetine, baclofen as needed Also on oxycodone as needed Medically stable, plan to discharge to rehab facility when accepted Abnormality serology for Lyme's disease No signs of acute infection IgM Western blot for Lyme's negative No indication for treatment currently Urinary tract infection-POA Outpatient urine culture from 03/21/2023 grew Citrobacter freundii (resistant to cefoxitin, ceftriaxone, Zosyn) Since due to cefepime, Cipro, gentamicin, meropenem, nitrofurantoin, Bactrim Continue ciprofloxacin to complete the course Constipation Continue bowel regimen Morbid obesity BMI 53 (2) Hypothyroidism: Plan: Continue levothyroxine (3) HTN (hypertension): Plan: Not on any meds Consider adding antihypertensives if blood pressure persistently elevated (4) GERD (gastroesophageal reflux disease): Plan: Continue Protonix (5) ELISSA on CPAP: Plan: CPAP at bedtime (6) CKD (chronic kidney disease), stage III: Plan: Baseline Cr 1.6-1.7 Monitor renal function Avoid nephrotoxic agents as able (7) Diabetes mellitus, type II: Plan: - Diabetic diet - Baseline lantus, novolog sliding scale - BSG ACHS (8) Chronic diastolic heart failure: Plan: - Continue Lasix Monitor volume status (9) Chronic respiratory failure: Plan: Chronic respiratory failure with hypoxia H/O ILD On 3L O2 at baseline (10) RLS (restless legs syndrome): (11) Fibromyalgia: (12) Major depression, recurrent: Plan: Continue home medication Consulted psychiatry per patient's request Plan DVT Px: Eliquis Code Status: Full code Disposition Rehab when accepted Admission and Anticipated Discharge Date Admission Date: March 24, 2023 Subjective Patient is seen and examined at bedside Back pain is controlled Tearful during my encounter which she attributes to her shoulder issue Still has constipation Denies any chest pain, dyspnea, dizziness, nausea, vomiting, abdominal pain Waiting for rehab placement Review of Systems Review of Systems: All systems reviewed & are unremarkable except as noted in Subjective Physical Exam Physical Exam: Physical Exam: Vitals signs as noted above General Appearance:Morbidly Obese, no apparent distress Head: normocephalic, Atraumatic Eyes: normal inspection, EOMI Neck: supple, Trachea midline Respiratory/Chest: Decreased breath sounds, minimal crackles, No accessory muscle use Cardiovascular: S1, S2, No murmur Abdomen/GI:Soft, Non tender, Bowel sounds present Extremities/Musculoskeletal:normal inspection, 1+ B/L LE edema Neurologic/Psych:AAOX3, grossly no focal neurological deficits Skin: normal color, warm Results & Data Results & Data Vital Signs (Past 12 Hours) Vital Signs Temp Pulse Resp BP Pulse Ox O2 Del Method O2 Flow Rate 03/26/23 14:44 36.6 C 79 16 137/70 95 Room Air 03/26/23 07:35 Nasal Cannula 3 03/26/23 07:07 36.7 C 77 18 149/70 H 93 Room Air 3 Laboratory Results BMP 03/26/23 06:51 Sodium 139 Potassium 3.5 Chloride 99 Carbon Dioxide 35 H BUN 31 H Creatinine 1.59 H Glucose 172 H Calcium 9.0 (7) Diabetes mellitus, type II Diabetes mellitus complication status: with other specified complication Diabetes mellitus correction insulin use: with manager intermediate use Qualified Code(s): E11.69 - Type 2 diabetes mellitus with other specified complication; Z79.4 - exterminator termite (current) use of insulin
[2023-03-26] MEDS: LIDOCAINE 5% 1 PATCH TD SCH (18:05)
--- NOTE | 2023-03-26 20:35 | Electrocardiogram Report ---
Test Reason : Blood Pressure : / mmHG Vent. Rate : 075 BPM Atrial Rate : 075 BPM P-R Int : 180 ms QRS Dur : 080 ms QT Int : 388 ms P-R-T Axes : 039 011 032 degrees QTc Int : 433 ms Sinus rhythm with Blocked Premature atrial complexes Otherwise normal ECG When compared with ECG of 23-MAR-2023 06:28, Premature atrial complexes are now Present Confirmed by Parish Julien ([id number]) on 03/26/2023 8:34:56 PM Referred By: REFERRED SELF Confirmed By:Parish Julien
[2023-03-26] MEDS: rOPINIRole HCL 2 MG TABLET PO SCH (20:39)
[2023-03-26] MEDS: traZODone HCL 100 MG TAB PO SCH (20:39)
[2023-03-27] MEDS: oxyCODONE HCL IR 5 MG TAB (IMMEDIATE RELEASE) PO PRN ×4 (03:55→21:02)
[2023-03-27] MEDS ORDERED: LACTULOSE SYRUP 30 GM/45 ML UDP PO STA (05:52)
[2023-03-27] MEDS: LEVOTHYROXINE SODIUM 200 MCG TABLET PO SCH (06:15)
[2023-03-27] MEDS: DOCUSATE SODIUM/SENNA 50/8.6MG TAB PO SCH ×2 (06:15→20:01)
[2023-03-27] MEDS: LEVOTHYROXINE SODIUM 50 MCG TABLET PO SCH (06:15)
[2023-03-27] MEDS: POTASSIUM CHLORIDE CRTAB 20 MEQ TABCR PO SCH ×2 (08:43→20:03)
[2023-03-27] MEDS: MAGNESIUM OXIDE 400 MG TAB PO SCH ×2 (08:43→20:03)
[2023-03-27] MEDS: FUROSEMIDE 20 MG TAB PO SCH ×2 (08:43→20:04)
[2023-03-27] MEDS: APIXABAN 5 MG TABLET PO SCH ×2 (08:43→20:03)
[2023-03-27] MEDS: CIPROFLOXACIN 500 MG TAB PO SCH ×2 (08:43→20:02)
[2023-03-27] MEDS: DULoxetine HCL 60 MG CAP PO SCH (08:44)
[2023-03-27] MEDS: CHOLECALCIFEROL 1,000 UNITS 25 MCG TAB PO SCH (08:44)
[2023-03-27] MEDS: GABAPENTIN 300 MG CAP PO SCH ×3 (08:44→20:02)
[2023-03-27] MEDS: PANTOprazole 40 MG TAB PO SCH (08:44)
[2023-03-27] MEDS: INSULIN ASPART PER UNIT CHARGE SC SCH ×4 (08:56→21:03)
[2023-03-27] MEDS: LANTUS PER UNIT CHARGE SQ SCH ×2 (08:56→21:04)
[2023-03-27] MEDS: clonazePAM 0.5 MG TAB PO PRN ×2 (08:57→21:04)
[2023-03-27] MEDS: diphenhydrAMINE HCl 12.5 MG/5 ML UDC PO PRN (13:11)
[2023-03-27] MEDS: CLOTRIMAZOLE 1% CR 15 GM TUBE EXT PRN (13:12)
--- NOTE | 2023-03-27 16:29 | Hospitalist Progress Note ---
Date of Service March 27, 2023 Assessment & Plan (1) Intractable back pain: Plan: This is a 67 y/o female with a history of chronic respiratory failure due to probable interstitial lung disease, on chronic O2 at 3 L, ELISSA on CPAP, chronic diastolic heart failure, PVD, HTN, hyperlipidemia, insulin-requiring DM, CKD with baseline creatinine ~1.6, prior DVT/PE, s/p IVC filter placement and on Eliquis, hx HIT, hypothyroidism, fibromyalgia, RLS and depression who presents to the ED today with worsening back pain and increased difficulty getting around safely at home. During her recent admission earlier this month, rehab was recommended by PT but insurance refused to cover to instead pt discharged home with home health. Initially, she felt like she was doing okay but over the last few days, her pain has been increasing and she feels like she is getting weaker, may fall even with using rollator. Work-up in the ED negative for acute pathology but pt unable to be safely discharged home with the severe intractable pain so referred for admission and consideration again for possible placement. Intractable back pain H/O sciatica per patient H/O fibromyalgia Ambulatory dysfunction secondary to above --Lumbar X ray:No acute bony abnormality is seen involving the lumbar spine. Osteopenia and spondylotic change as above. --Sacrum X ray:No acute abnormality and in particular no evidence of acute fracture. Follows with pain management as outpatient--scheduled for epidural steroid injection by Dr. Ahn on March 30 Fall precautions, PT OT Discussed with pain management on 03/25/2023: Advised to continue current management, PT Continue gabapentin, duloxetine, baclofen as needed Also on oxycodone as needed Medically stable, plan to discharge to rehab facility when accepted Continue current management Abnormality serology for Lyme's disease No signs of acute infection IgM Western blot for Lyme's negative No indication for treatment currently Urinary tract infection-POA Outpatient urine culture from 03/21/2023 grew Citrobacter freundii (resistant to cefoxitin, ceftriaxone, Zosyn) Since due to cefepime, Cipro, gentamicin, meropenem, nitrofurantoin, Bactrim Continue ciprofloxacin to complete the course Dermatophyte infection left leg Started on Clotrimazole Constipation Continue bowel regimen Morbid obesity BMI 53 (2) Hypothyroidism: Plan: Continue levothyroxine (3) HTN (hypertension): Plan: Not on any meds Consider adding antihypertensives if blood pressure persistently elevated (4) GERD (gastroesophageal reflux disease): Plan: Continue Protonix (5) ELISSA on CPAP: Plan: CPAP at bedtime (6) CKD (chronic kidney disease), stage III: Plan: Baseline Cr 1.6-1.7 Monitor renal function Avoid nephrotoxic agents as able (7) Diabetes mellitus, type II: Plan: - Diabetic diet - Baseline lantus, novolog sliding scale - BSG ACHS (8) Chronic diastolic heart failure: Plan: - Continue Lasix Monitor volume status (9) Chronic respiratory failure: Plan: Chronic respiratory failure with hypoxia H/O ILD On 3L O2 at baseline (10) RLS (restless legs syndrome): (11) Fibromyalgia: (12) Major depression, recurrent: Plan: Continue home medication Consulted psychiatry per patient's request Plan DVT Px: Eliquis Code Status: Full code Disposition Rehab when accepted Admission and Anticipated Discharge Date Admission Date: March 24, 2023 Subjective Patient is seen and examined at bedside States having left leg Itchy erythematous rash Back pain is controlled Denies any chest pain, dyspnea, dizziness, nausea, vomiting, abdominal pain Waiting for rehab placement Review of Systems Review of Systems: All systems reviewed & are unremarkable except as noted in Subjective Physical Exam Physical Exam: Physical Exam: Vitals signs as noted above General Appearance:Morbidly Obese, no apparent distress Head: normocephalic, Atraumatic Eyes: normal inspection, EOMI Neck: supple, Trachea midline Respiratory/Chest: Decreased breath sounds, minimal crackles, No accessory muscle use Cardiovascular: S1, S2, No murmur Abdomen/GI:Soft, Non tender, Bowel sounds present Extremities/Musculoskeletal:normal inspection, 1+ B/L LE edema Neurologic/Psych:AAOX3, grossly no focal neurological deficits Skin: normal color, warm Results & Data Results & Data Vital Signs (Past 12 Hours) Vital Signs Temp Pulse Resp BP Pulse Ox O2 Del Method O2 Flow Rate 03/27/23 14:47 36.5 C 81 18 153/77 H 96 Nasal Cannula 3 03/27/23 07:09 36.7 C 81 16 143/66 H 92 Nasal Cannula 3 (7) Diabetes mellitus, type II Diabetes mellitus complication status: with other specified complication Diabetes mellitus buttermaker helper insulin use: with buttermaker helper use Qualified Code(s): E11.69 - Type 2 diabetes mellitus with other specified complication; Z79.4 - intermediate designer (current) use of insulin
[2023-03-27] MEDS: LIDOCAINE 5% 1 PATCH TD SCH (17:53)
[2023-03-27] MEDS: traZODone HCL 100 MG TAB PO SCH (20:03)
[2023-03-27] MEDS: rOPINIRole HCL 2 MG TABLET PO SCH (20:04)
[2023-03-28] MEDS: oxyCODONE HCL IR 5 MG TAB (IMMEDIATE RELEASE) PO PRN ×4 (03:48→22:49)
[2023-03-28] MEDS: LEVOTHYROXINE SODIUM 200 MCG TABLET PO SCH (06:00)
[2023-03-28] MEDS: LEVOTHYROXINE SODIUM 50 MCG TABLET PO SCH (06:00)
[2023-03-28] MEDS: traMADol HCL 50 MG TABLET PO PRN (06:05)
[2023-03-28 07:28] LABS: BUN Creatinine Ratio 16.9 (10-20); Calcium 9.3 mg/dl (8.6-10.3); Creatinine Clr Calc Pharmacy 51.6 ml/min; Est GFR (African American) 40.1 ml/min; Est GFR (Non-African American) 34.6 ml/min; Potassium 3.6 mmol/L (3.5-5.1)
[2023-03-28] MEDS: CHOLECALCIFEROL 1,000 UNITS 25 MCG TAB PO SCH (07:59)
[2023-03-28] MEDS: POTASSIUM CHLORIDE CRTAB 20 MEQ TABCR PO SCH ×2 (07:59→20:44)
[2023-03-28] MEDS: DULoxetine HCL 60 MG CAP PO SCH (07:59)
[2023-03-28] MEDS: PANTOprazole 40 MG TAB PO SCH (07:59)
[2023-03-28] MEDS: FUROSEMIDE 20 MG TAB PO SCH ×2 (07:59→20:44)
[2023-03-28] MEDS: CIPROFLOXACIN 500 MG TAB PO SCH ×2 (08:00→20:44)
[2023-03-28] MEDS: APIXABAN 5 MG TABLET PO SCH (08:00)
[2023-03-28] MEDS: GABAPENTIN 300 MG CAP PO SCH ×3 (08:00→20:44)
[2023-03-28] MEDS: MAGNESIUM OXIDE 400 MG TAB PO SCH ×2 (08:00→20:44)
[2023-03-28] MEDS: DOCUSATE SODIUM/SENNA 50/8.6MG TAB PO SCH ×2 (08:00→20:44)
[2023-03-28] MEDS: LANTUS PER UNIT CHARGE SQ SCH ×2 (08:53→22:00)
[2023-03-28] MEDS: INSULIN ASPART PER UNIT CHARGE SC SCH ×4 (08:54→22:00)
[2023-03-28] MEDS: clonazePAM 0.5 MG TAB PO PRN ×2 (08:59→20:47)
[2023-03-28] MEDS: CLOTRIMAZOLE 1% CR 15 GM TUBE EXT PRN (11:09)
[2023-03-28] MEDS: LIDOCAINE 5% 1 PATCH TD SCH (17:49)
--- NOTE | 2023-03-28 19:00 | Hospitalist Progress Note ---
Date of Service March 28, 2023 Assessment & Plan (1) Intractable back pain: Plan: This is a 67 y/o female with a history of chronic respiratory failure due to probable interstitial lung disease, on chronic O2 at 3 L, ELISSA on CPAP, chronic diastolic heart failure, PVD, HTN, hyperlipidemia, insulin-requiring DM, CKD with baseline creatinine ~1.6, prior DVT/PE, s/p IVC filter placement and on Eliquis, hx HIT, hypothyroidism, fibromyalgia, RLS and depression who presents to the ED today with worsening back pain and increased difficulty getting around safely at home. During her recent admission earlier this month, rehab was recommended by PT but insurance refused to cover to instead pt discharged home with home health. Initially, she felt like she was doing okay but over the last few days, her pain has been increasing and she feels like she is getting weaker, may fall even with using rollator. Work-up in the ED negative for acute pathology but pt unable to be safely discharged home with the severe intractable pain so referred for admission and consideration again for possible placement. Intractable back pain H/O sciatica per patient H/O fibromyalgia Ambulatory dysfunction secondary to above --Lumbar X ray:No acute bony abnormality is seen involving the lumbar spine. Osteopenia and spondylotic change as above. --Sacrum X ray:No acute abnormality and in particular no evidence of acute fracture. Follows with pain management as outpatient--scheduled for epidural steroid injection by Dr. Ahn on March 30 Fall precautions, PT OT Discussed with pain management on 03/25/2023: Advised to continue current management, PT Continue gabapentin, duloxetine, baclofen as needed Also on oxycodone as needed Medically stable, plan to discharge to rehab facility when accepted Waiting for placement Abnormality serology for Lyme's disease No signs of acute infection IgM Western blot for Lyme's negative No indication for treatment currently Urinary tract infection-POA Outpatient urine culture from 03/21/2023 grew Citrobacter freundii (resistant to cefoxitin, ceftriaxone, Zosyn) Since due to cefepime, Cipro, gentamicin, meropenem, nitrofurantoin, Bactrim Continue ciprofloxacin to complete the course Dermatophyte infection left leg Continue Topical Clotrimazole Constipation Continue bowel regimen Morbid obesity BMI 53 (2) Hypothyroidism: Plan: Continue levothyroxine (3) HTN (hypertension): Plan: Not on any meds Consider adding antihypertensives if blood pressure persistently elevated (4) GERD (gastroesophageal reflux disease): Plan: Continue Protonix (5) ELISSA on CPAP: Plan: CPAP at bedtime (6) CKD (chronic kidney disease), stage III: Plan: Baseline Cr 1.6-1.7 Monitor renal function Avoid nephrotoxic agents as able (7) Diabetes mellitus, type II: Plan: - Diabetic diet - Baseline lantus, novolog sliding scale - BSG ACHS (8) Chronic diastolic heart failure: Plan: - Continue Lasix Monitor volume status (9) Chronic respiratory failure: Plan: Chronic respiratory failure with hypoxia H/O ILD On 3L O2 at baseline (10) RLS (restless legs syndrome): (11) Fibromyalgia: (12) Major depression, recurrent: Plan: Continue home medication Consulted psychiatry per patient's request Plan DVT Px: Eliquis Code Status: Full code Disposition Rehab when accepted Admission and Anticipated Discharge Date Admission Date: March 24, 2023 Subjective Patient is seen and examined at bedside Constipation resolved No new complaints Back pain is controlled Denies any chest pain, dyspnea, dizziness, nausea, vomiting, abdominal pain Waiting for rehab placement Review of Systems Review of Systems: All systems reviewed & are unremarkable except as noted in Subjective Physical Exam Physical Exam: Physical Exam: Vitals signs as noted above General Appearance:Morbidly Obese, no apparent distress Head: normocephalic, Atraumatic Eyes: normal inspection, EOMI Neck: supple, Trachea midline Respiratory/Chest: Decreased breath sounds, CTA, No accessory muscle use Cardiovascular: S1, S2, No murmur Abdomen/GI:Soft, Non tender, Bowel sounds present Extremities/Musculoskeletal:normal inspection, 1+ B/L LE edema Neurologic/Psych:AAOX3, grossly no focal neurological deficits Skin: normal color, warm Results & Data Results & Data Vital Signs (Past 12 Hours) Vital Signs Temp Pulse Resp BP Pulse Ox O2 Del Method O2 Flow Rate 03/28/23 15:57 36.8 C 82 18 138/70 98 Nasal Cannula 3 03/28/23 07:26 36.6 C 78 20 121/71 94 Nasal Cannula 3 Laboratory Results [facility] 03/28/23 06:38 Sodium 137 Potassium 3.6 Chloride 96 L Carbon Dioxide 33 H BUN 26 H Creatinine 1.54 H Glucose 207 H Calcium 9.3 (7) Diabetes mellitus, type II Diabetes mellitus complication status: with other specified complication Diabetes mellitus alf insulin use: with alf use Qualified Code(s): E11.69 - Type 2 diabetes mellitus with other specified complication; Z79.4 - terminologist (current) use of insulin
[2023-03-28] MEDS ORDERED: HYDROmorphone INJ 0.5 MG/0.5 ML SYR IV STA (19:24)
[2023-03-28] MEDS: traZODone HCL 100 MG TAB PO SCH (20:44)
[2023-03-28] MEDS: rOPINIRole HCL 2 MG TABLET PO SCH (20:44)
--- NOTE | 2023-03-28 22:08 | CT Scan Report ---
Exam(s): CT C SPINE EXAM: CT Cervical Spine Without Intravenous Contrast CLINICAL HISTORY: Reason for exam: fall, neck pain, noac. TECHNIQUE: Axial computed tomography images of the cervical spine without intravenous contrast. CTDI is 21.07 mGy and DLP is 455.92 mGy-cm. Automated exposure control was utilized for the study. A dose lowering technique was utilized adhering to the principles of ALARA. COMPARISON: No relevant prior studies available. FINDINGS: The vertebral body heights are maintained. The craniocervical junction is intact. The atlanto-dens interval is maintained. The dens is intact. There is no spondylolisthesis. Multilevel cervical spondylosis and degenerative disc disease. Straightening of the cervical lordosis. The unenhanced neck soft tissues are grossly unremarkable. The visualized lung apices are grossly clear. IMPRESSION: No acute fracture or subluxation of the cervical spine. Electronically signed by: Fam Sumner MD 03/28/23 22:06 PM
--- NOTE | 2023-03-28 22:24 | CT Scan Report ---
Exam(s): CT LEFT KNEE Without Contrast EXAM: CT Left Lower Extremity Without Intravenous Contrast, Knee CLINICAL HISTORY: Reason for exam: L knee pain, fall, noac. TECHNIQUE: Axial computed tomography images of the left knee without intravenous contrast. CTDI is 15.57 mGy and DLP is 442.79 mGy-cm. Automated exposure control was utilized for the study. A dose lowering technique was utilized adhering to the principles of ALARA. COMPARISON: No relevant prior studies available. FINDINGS: Bones/joints: Severe tricompartmental joint space narrowing, with bone- on-bone articulation of the medial and patellofemoral compartments. Tricomponent osteophytic spurring and subchondral cystic changes/sclerosis. Osseous demineralization. Mild knee joint effusion. No acute fracture or dislocation. Soft tissues: Unremarkable. No soft tissue hematoma. IMPRESSION: 1. No acute fracture or dislocation. 2. Severe tricompartmental joint space narrowing, with [id number] articulation of the medial and patellofemoral compartments. Electronically signed by: Fam Sumner MD 03/28/23 22:23 PM
--- NOTE | 2023-03-28 22:30 | CT Scan Report ---
Exam(s): CT LEFT ANKLE Without Contrast EXAM: CT Left Lower Extremity Without Intravenous Contrast, Ankle CLINICAL HISTORY: Reason for exam: L ankle pain, fall, noac. TECHNIQUE: Axial computed tomography images of the left ankle without intravenous contrast. CTDI is 15.57 mGy and DLP is 361.05 mGy-cm. Automated exposure control was utilized for the study. A dose lowering technique was utilized adhering to the principles of ALARA. COMPARISON: No relevant prior studies available. FINDINGS: Bones/joints: Moderate degenerative arthropathy. 12 mm heel spur. Osseous demineralization. The ankle mortise is symmetric. Intact base of the fifth metatarsal. No dislocation. No acute fracture. Soft tissues: Mild generalized soft tissue swelling. Other findings: No loose fragment alignment. IMPRESSION: No fracture or subluxation. Electronically signed by: Fam Sumner MD 03/28/23 22:30 PM
[2023-03-29] MEDS: traMADol HCL 50 MG TABLET PO PRN (02:17)
[2023-03-29] MEDS: CLOTRIMAZOLE 1% CR 15 GM TUBE EXT PRN ×2 (03:43→11:41)
[2023-03-29] MEDS: LEVOTHYROXINE SODIUM 50 MCG TABLET PO SCH (05:26)
[2023-03-29] MEDS: oxyCODONE HCL IR 5 MG TAB (IMMEDIATE RELEASE) PO PRN ×3 (05:26→17:02)
[2023-03-29] MEDS: LEVOTHYROXINE SODIUM 200 MCG TABLET PO SCH (05:26)
[2023-03-29] MEDS: INSULIN ASPART PER UNIT CHARGE SC SCH ×4 (08:30→21:24)
[2023-03-29] MEDS: LANTUS PER UNIT CHARGE SQ SCH ×2 (08:31→21:25)
[2023-03-29] MEDS: ACETAMINOPHEN 500 MG TAB PO PRN (08:36)
[2023-03-29] MEDS: POTASSIUM CHLORIDE CRTAB 20 MEQ TABCR PO SCH ×2 (08:37→20:11)
[2023-03-29] MEDS: GABAPENTIN 300 MG CAP PO SCH ×3 (08:38→20:10)
[2023-03-29] MEDS: CHOLECALCIFEROL 1,000 UNITS 25 MCG TAB PO SCH (08:38)
[2023-03-29] MEDS: MAGNESIUM OXIDE 400 MG TAB PO SCH ×2 (08:38→20:10)
[2023-03-29] MEDS: DOCUSATE SODIUM/SENNA 50/8.6MG TAB PO SCH ×2 (08:39→20:09)
[2023-03-29] MEDS: PANTOprazole 40 MG TAB PO SCH (08:39)
[2023-03-29] MEDS: FUROSEMIDE 20 MG TAB PO SCH ×2 (08:39→20:09)
[2023-03-29] MEDS: CIPROFLOXACIN 500 MG TAB PO SCH (08:40)
[2023-03-29] MEDS: DULoxetine HCL 60 MG CAP PO SCH (08:41)
[2023-03-29] MEDS: clonazePAM 0.5 MG TAB PO PRN ×2 (08:44→20:09)
[2023-03-29] MEDS: diphenhydrAMINE HCl 12.5 MG/5 ML UDC PO PRN (11:41)
[2023-03-29] MEDS: POLYETHYLENE (MIRALAX) 17 GM PACK PO PRN (12:59)
--- NOTE | 2023-03-29 16:43 | Hospitalist Progress Note ---
Date of Service March 29, 2023 Assessment & Plan (1) Intractable back pain: Plan: This is a 67 y/o female with a history of chronic respiratory failure due to probable interstitial lung disease, on chronic O2 at 3 L, ELISSA on CPAP, chronic diastolic heart failure, PVD, HTN, hyperlipidemia, insulin-requiring DM, CKD with baseline creatinine ~1.6, prior DVT/PE, s/p IVC filter placement and on Eliquis, hx HIT, hypothyroidism, fibromyalgia, RLS and depression who presents to the ED today with worsening back pain and increased difficulty getting around safely at home. During her recent admission earlier this month, rehab was recommended by PT but insurance refused to cover to instead pt discharged home with home health. Initially, she felt like she was doing okay but over the last few days, her pain has been increasing and she feels like she is getting weaker, may fall even with using rollator. Work-up in the ED negative for acute pathology but pt unable to be safely discharged home with the severe intractable pain so referred for admission and consideration again for possible placement. Intractable back pain H/O sciatica per patient H/O fibromyalgia Ambulatory dysfunction secondary to above --Lumbar X ray:No acute bony abnormality is seen involving the lumbar spine. Osteopenia and spondylotic change as above. --Sacrum X ray:No acute abnormality and in particular no evidence of acute fracture. Follows with pain management as outpatient--scheduled for epidural steroid injection by Dr. Ahn on March 30 Fall precautions, PT OT Discussed with pain management on 03/25/2023: Advised to continue current management, PT Continue gabapentin, duloxetine, baclofen as needed Also on oxycodone as needed Waiting for rehab placement Abnormality serology for Lyme's disease No signs of acute infection IgM Western blot for Lyme's negative No indication for treatment currently Urinary tract infection-POA Outpatient urine culture from 03/21/2023 grew Citrobacter freundii (resistant to cefoxitin, ceftriaxone, Zosyn) Since due to cefepime, Cipro, gentamicin, meropenem, nitrofurantoin, Bactrim Will complete ciprofloxacin course today Dermatophyte infection left leg Continue Topical Clotrimazole Constipation Continue bowel regimen Morbid obesity BMI 53 (2) Hypothyroidism: Plan: Continue levothyroxine (3) HTN (hypertension): Plan: Not on any meds Consider adding antihypertensives if blood pressure persistently elevated (4) GERD (gastroesophageal reflux disease): Plan: Continue Protonix (5) ELISSA on CPAP: Plan: CPAP at bedtime (6) CKD (chronic kidney disease), stage III: Plan: Baseline Cr 1.6-1.7 Monitor renal function Avoid nephrotoxic agents as able (7) Diabetes mellitus, type II: Plan: - Diabetic diet - Baseline lantus, novolog sliding scale - BSG ACHS (8) Chronic diastolic heart failure: Plan: - Continue Lasix Monitor volume status (9) Chronic respiratory failure: Plan: Chronic respiratory failure with hypoxia H/O ILD On 3L O2 at baseline (10) RLS (restless legs syndrome): (11) Fibromyalgia: (12) Major depression, recurrent: Plan: Continue home medication Consulted psychiatry per patient's request Plan DVT Px: Eliquis Code Status: Full code Disposition Waiting for rehab placement Admission and Anticipated Discharge Date Admission Date: March 24, 2023 Subjective Patient is seen and examined at bedside Still has some itching on left leg No new complaints Back pain is controlled Denies any chest pain, dyspnea, dizziness, nausea, vomiting, abdominal pain Waiting for rehab placement Review of Systems Review of Systems: All systems reviewed & are unremarkable except as noted in Subjective Physical Exam Physical Exam: Physical Exam: Vitals signs as noted above General Appearance:Morbidly Obese, no apparent distress Head: normocephalic, Atraumatic Eyes: normal inspection, EOMI Neck: supple, Trachea midline Respiratory/Chest: Decreased breath sounds, CTA, No accessory muscle use Cardiovascular: S1, S2, No murmur Abdomen/GI:Soft, Non tender, Bowel sounds present Extremities/Musculoskeletal:normal inspection, 1+ B/L LE edema Neurologic/Psych:AAOX3, grossly no focal neurological deficits Skin: normal color, warm Results & Data Results & Data Vital Signs (Past 12 Hours) Vital Signs Temp Pulse Resp BP Pulse Ox O2 Del Method O2 Flow Rate 03/29/23 15:56 36.4 C L 74 16 118/66 99 Nasal Cannula 2 03/29/23 08:00 Nasal Cannula 3 03/29/23 07:19 36.8 C 80 18 152/75 H 97 Nasal Cannula 3 (7) Diabetes mellitus, type II Diabetes mellitus complication status: with other specified complication Diabetes mellitus jail insulin use: with jail use Qualified Code(s): E11.69 - Type 2 diabetes mellitus with other specified complication; Z79.4 - truck terminal manager (current) use of insulin
[2023-03-29] MEDS: LIDOCAINE 5% 1 PATCH TD SCH (18:20)
[2023-03-29] MEDS: traZODone HCL 100 MG TAB PO SCH (20:11)
[2023-03-29] MEDS: rOPINIRole HCL 2 MG TABLET PO SCH (20:11)
[2023-03-29] MEDS: BACLOFEN 10 MG TAB PO PRN (22:44)
[2023-03-30] MEDS: oxyCODONE HCL IR 5 MG TAB (IMMEDIATE RELEASE) PO PRN ×3 (00:22→22:32)
[2023-03-30] MEDS: ACETAMINOPHEN 500 MG TAB PO PRN (03:16)
[2023-03-30] MEDS: LEVOTHYROXINE SODIUM 50 MCG TABLET PO SCH (05:43)
[2023-03-30] MEDS: LEVOTHYROXINE SODIUM 200 MCG TABLET PO SCH (05:44)
[2023-03-30 06:58] LABS: Hematocrit (blood only) 38.5 % (37.0-47.0); Hemoglobin 12.4 g/dl (12.0-16.0); Mean Corpuscular Hemoglobin 30.5 pg (25.0-34.0); Mean Corpuscular Hgb Conc 32.2 g/dL (32.0-36.0); Mean Corpuscular Volume 94.6 fL (80.0-100.0); Mean Platelet Volume 9.9 fL (9.4-12.4); Platelet Count 282 K/uL (130-400); RDW Coefficient of Variation 13.7 % (11.5-14.5); RDW Standard Deviation 47.6 fL (36.4-46.3); Red Blood Count 4.07 M/uL (4.20-5.40); White Blood Count 10.05 K/ul (4.8-10.8)
[2023-03-30 07:25] LABS: BUN Creatinine Ratio 13.9 (10-20); Calcium 9.2 mg/dl (8.6-10.3); Creatinine Clr Calc Pharmacy 48.2 ml/min; Est GFR (African American) 36.9 ml/min; Est GFR (Non-African American) 31.8 ml/min
[2023-03-30] MEDS: DOCUSATE SODIUM/SENNA 50/8.6MG TAB PO SCH ×2 (07:47→20:56)
[2023-03-30] MEDS: FUROSEMIDE 20 MG TAB PO SCH ×2 (07:47→20:57)
[2023-03-30] MEDS: CHOLECALCIFEROL 1,000 UNITS 25 MCG TAB PO SCH (07:47)
[2023-03-30] MEDS: DULoxetine HCL 60 MG CAP PO SCH (07:47)
[2023-03-30] MEDS: PANTOprazole 40 MG TAB PO SCH (07:48)
[2023-03-30] MEDS: GABAPENTIN 300 MG CAP PO SCH ×3 (07:48→20:56)
[2023-03-30] MEDS: MAGNESIUM OXIDE 400 MG TAB PO SCH ×2 (07:48→20:57)
[2023-03-30] MEDS: POTASSIUM CHLORIDE CRTAB 20 MEQ TABCR PO SCH ×2 (07:48→20:58)
[2023-03-30] MEDS: clonazePAM 0.5 MG TAB PO PRN ×2 (07:50→20:55)
[2023-03-30] MEDS: INSULIN ASPART PER UNIT CHARGE SC SCH ×4 (08:20→20:55)
[2023-03-30] MEDS: LANTUS PER UNIT CHARGE SQ SCH ×2 (08:21→20:56)
[2023-03-30 14:08] LABS: Ehrlichia chaff DNA Bld Negative (Negative)
[2023-03-30] MEDS: POLYETHYLENE (MIRALAX) 17 GM PACK PO PRN (14:52)
--- NOTE | 2023-03-30 17:43 | Hospitalist Progress Note ---
Date of Service March 30, 2023 Assessment & Plan (1) Intractable back pain: Plan: This is a 67 y/o female with a history of chronic respiratory failure due to probable interstitial lung disease, on chronic O2 at 3 L, ELISSA on CPAP, chronic diastolic heart failure, PVD, HTN, hyperlipidemia, insulin-requiring DM, CKD with baseline creatinine ~1.6, prior DVT/PE, s/p IVC filter placement and on Eliquis, hx HIT, hypothyroidism, fibromyalgia, RLS and depression who presents to the ED today with worsening back pain and increased difficulty getting around safely at home. During her recent admission earlier this month, rehab was recommended by PT but insurance refused to cover to instead pt discharged home with home health. Initially, she felt like she was doing okay but over the last few days, her pain has been increasing and she feels like she is getting weaker, may fall even with using rollator. Work-up in the ED negative for acute pathology but pt unable to be safely discharged home with the severe intractable pain so referred for admission and consideration again for possible placement. Intractable back pain H/O sciatica per patient H/O fibromyalgia Ambulatory dysfunction secondary to above --Lumbar X ray:No acute bony abnormality is seen involving the lumbar spine. Osteopenia and spondylotic change as above. --Sacrum X ray:No acute abnormality and in particular no evidence of acute fracture. Follows with pain management as outpatient--scheduled for epidural steroid injection by Dr. Ahn on March 30 Fall precautions, PT OT Discussed with pain management on 03/25/2023: Advised to continue current management, PT Continue gabapentin, duloxetine, baclofen as needed Also on oxycodone as needed Waiting for rehab/snf placement Abnormality serology for Lyme's disease No signs of acute infection IgM Western blot for Lyme's negative No indication for treatment currently Urinary tract infection-POA Outpatient urine culture from 03/21/2023 grew Citrobacter freundii (resistant to cefoxitin, ceftriaxone, Zosyn) Since due to cefepime, Cipro, gentamicin, meropenem, nitrofurantoin, Bactrim Completed ciprofloxacin course on 03/29 Dermatophyte infection left leg Continue Topical Clotrimazole Constipation Continue bowel regimen Morbid obesity BMI 53 (2) Hypothyroidism: Plan: Continue levothyroxine (3) HTN (hypertension): Plan: Not on any meds Consider adding antihypertensives if blood pressure persistently elevated (4) GERD (gastroesophageal reflux disease): Plan: Continue Protonix (5) ELISSA on CPAP: Plan: CPAP at bedtime (6) CKD (chronic kidney disease), stage III: Plan: Baseline Cr 1.6-1.7 Monitor renal function Avoid nephrotoxic agents as able (7) Diabetes mellitus, type II: Plan: - Diabetic diet - Baseline lantus, novolog sliding scale - BSG ACHS (8) Chronic diastolic heart failure: Plan: - Continue Lasix Monitor volume status (9) Chronic respiratory failure: Plan: Chronic respiratory failure with hypoxia H/O ILD On 3L O2 at baseline (10) RLS (restless legs syndrome): (11) Fibromyalgia: (12) Major depression, recurrent: Plan: Continue home medication Consulted psychiatry per patient's request Plan DVT Px: Eliquis Code Status: Full code Disposition Waiting for rehab placement Admission and Anticipated Discharge Date Admission Date: March 24, 2023 Subjective Patient is seen and examined at bedside No new complaints Continues to have back pain and difficulty w/ ambulation Denies any chest pain, dyspnea, dizziness, nausea, vomiting, abdominal pain Waiting for rehab/snf placement Review of Systems Review of Systems: All systems reviewed & are unremarkable except as noted in Subjective Physical Exam Physical Exam: General Appearance:Morbidly Obese, no apparent distress Head: normocephalic, Atraumatic Eyes: normal inspection, EOMI Neck: supple Respiratory/Chest: Decreased breath sounds, CTA, No accessory muscle use Cardiovascular: S1, S2, No murmur Abdomen/GI:Soft, Non tender, Bowel sounds present Extremities/Musculoskeletal:normal inspection, 1+ B/L LE edema Neurologic/Psych:AAOX3, grossly no focal neurological deficits Skin: normal color, warm Results & Data Results & Data Vital Signs (Past 12 Hours) Vital Signs Temp Pulse Resp BP Pulse Ox O2 Del Method O2 Flow Rate 03/30/23 15:51 36.7 C 86 16 135/75 97 Nasal Cannula 3 03/30/23 08:00 Room Air 03/30/23 07:59 36.7 C 81 16 150/69 H 97 Nasal Cannula 3 Laboratory Results 03/30/23 03/30/23 03/30/23 Range/Units 17:17 12:02 07:59 WBC (4.8-10.8) K/ul RBC (4.20-5.40) M/uL Hgb (12.0-16.0) g/dl Hct (37.0-47.0) % MCV (80.0-100.0) fL MCH (25.0-34.0) pg MCHC (32.0-36.0) g/dL RDW Std Deviation (36.4-46.3) fL RDW Coeff of Adolfo (11.5-14.5) % Plt Count (130-400) K/uL MPV (9.4-12.4) fL Sodium (136-145) mmol/L Potassium (3.5-5.1) mmol/L Chloride (98-107) mmol/L Carbon Dioxide (21-32) mmol/L Anion Gap (3-11) BUN (6-23) mg/dl Creatinine (0.6-1.2) mg/dl Est Cr Clr Drug Dosing ml/min Est GFR ( Amer) ml/min Est GFR (Non-Af Amer) ml/min BUN/Creatinine Ratio (10-20) Glucose (70-99(Fasting)) mg/dl POC Glucose 152 H 231 H 221 H (70-99) mg/dl Calcium (8.6-10.3) mg/dl A. phagocytophilum DNA (Negative) E.chaffeensis DNA (PCR) (Negative) 03/30/23 03/30/23 03/29/23 Range/Units 06:24 06:24 22:24 WBC 10.05 (4.8-10.8) K/ul RBC 4.07 L (4.20-5.40) M/uL Hgb 12.4 (12.0-16.0) g/dl Hct 38.5 (37.0-47.0) % MCV 94.6 (80.0-100.0) fL MCH 30.5 (25.0-34.0) pg MCHC 32.2 (32.0-36.0) g/dL RDW Std Deviation 47.6 H (36.4-46.3) fL RDW Coeff of Adolfo 13.7 (11.5-14.5) % Plt Count 282 (130-400) K/uL MPV 9.9 (9.4-12.4) fL Sodium 136 (136-145) mmol/L Potassium 4.0 (3.5-5.1) mmol/L Chloride 96 L (98-107) mmol/L Carbon Dioxide 33 H (21-32) mmol/L Anion Gap 7 (3-11) BUN 23 (6-23) mg/dl Creatinine 1.65 H (0.6-1.2) mg/dl Est Cr Clr Drug Dosing 48.2 ml/min Est GFR ( Amer) 36.9 ml/min Est GFR (Non-Af Amer) 31.8 ml/min BUN/Creatinine Ratio 13.9 (10-20) Glucose 227 H (70-99(Fasting)) mg/dl POC Glucose 145 H (70-99) mg/dl Calcium 9.2 (8.6-10.3) mg/dl A. phagocytophilum DNA (Negative) E.chaffeensis DNA (PCR) (Negative) 03/29/23 03/23/23 03/23/23 Range/Units 20:29 09:39 09:39 WBC (4.8-10.8) K/ul RBC (4.20-5.40) M/uL Hgb (12.0-16.0) g/dl Hct (37.0-47.0) % MCV (80.0-100.0) fL MCH (25.0-34.0) pg MCHC (32.0-36.0) g/dL RDW Std Deviation (36.4-46.3) fL RDW Coeff of Adolfo (11.5-14.5) % Plt Count (130-400) K/uL MPV (9.4-12.4) fL Sodium (136-145) mmol/L Potassium (3.5-5.1) mmol/L Chloride (98-107) mmol/L Carbon Dioxide (21-32) mmol/L Anion Gap (3-11) BUN (6-23) mg/dl Creatinine (0.6-1.2) mg/dl Est Cr Clr Drug Dosing ml/min Est GFR ( Amer) ml/min Est GFR (Non-Af Amer) ml/min BUN/Creatinine Ratio (10-20) Glucose (70-99(Fasting)) mg/dl POC Glucose 153 H (70-99) mg/dl Calcium (8.6-10.3) mg/dl A. phagocytophilum DNA Negative (Negative) E.chaffeensis DNA (PCR) Negative (Negative) Medications Administered Current Inpatient Medications Acetaminophen (Acetaminophen 500 Mg Tab) 1,000 mg PO Q8H PRN PRN Reason: pain Stop: 04/22/23 17:03 Last Admin: 03/30/23 03:16 Dose: 1,000 mg Apixaban (Apixaban 5 Mg Tablet) 5 mg PO BID ROBERT Stop: 04/22/23 20:59 Last Admin: 03/28/23 08:00 Dose: 5 mg Baclofen (Baclofen 10 Mg Tab) 10 mg PO BID PRN PRN Reason: muscle spasm Stop: 04/22/23 16:24 Last Admin: 03/29/23 22:44 Dose: 10 mg Bisacodyl (Bisacodyl 5 Mg Tabec) 5 mg PO DAILY PRN PRN Reason: Constipation Stop: 04/25/23 12:21 Last Admin: 03/26/23 17:44 Dose: 5 mg Clonazepam (Clonazepam 0.5 Mg Tab) 0.5 mg PO BID PRN PRN Reason: anxiety Stop: 04/22/23 16:24 Last Admin: 03/30/23 07:50 Dose: 0.5 mg Clotrimazole (Clotrimazole 1% Cr 15 Gm Tube) 1 appln EXT BID PRN PRN Reason: left leg Stop: 04/26/23 11:45 Last Admin: 03/29/23 11:41 Dose: 1 appln Dextrose (Dextrose 50% 50 Ml Syringe) 25 - 50 ml IV UD PRN; Protocol PRN Reason: Hypoglycemia Protocol Stop: 04/22/23 16:59 Dicyclomine HCl (Dicyclomine Hcl 20 Mg Tab) 20 mg PO QID PRN PRN Reason: abdominal pain Stop: 04/22/23 16:24 Diphenhydramine HCl (Diphenhydramine Hcl 12.5 Mg/5 Ml Udc) 12.5 mg PO Q8H PRN PRN Reason: Itching Stop: 04/26/23 11:57 Last Admin: 03/29/23 11:41 Dose: 12.5 mg Docusate Sodium (Docusate Sodium 100 Mg Cap) 100 mg PO BID PRN PRN Reason: Constipation Stop: 04/22/23 16:24 Last Admin: 03/24/23 08:22 Dose: 100 mg Duloxetine HCl (Duloxetine Hcl 60 Mg Cap) 60 mg PO QAM [facility] Stop: 04/23/23 08:59 Last Admin: 03/30/23 07:47 Dose: 60 mg Furosemide (Furosemide 20 Mg Tab) 60 mg PO BID [facility] Stop: 04/27/23 19:24 Last Admin: 03/30/23 07:47 Dose: 60 mg Gabapentin (Gabapentin 300 Mg Cap) 600 mg PO TID ROBERT Stop: 04/22/23 20:59 Last Admin: 03/30/23 13:19 Dose: 600 mg Glucagon (Glucagon For Inj 1 Mg Vial) 1 mg SQ UD PRN; Protocol PRN Reason: Hypoglycemia Protocol Stop: 04/22/23 16:59 Glucose (Glucose 10 Tab/Tube) 4 - 8 tab PO UD PRN; Protocol PRN Reason: Hypoglycemia Treatment Stop: 04/22/23 16:59 Glucose (Glucose 40% Gel 15 Gm Tube) 15 - 30 gm PO UD PRN; Protocol PRN Reason: Hypoglycemia Protocol Stop: 04/22/23 16:59 Insulin Aspart (Insulin Aspart Per Unit Charge) 0 units SC ACHS [facility] Stop: 04/22/23 20:59 Last Admin: 03/30/23 17:25 Dose: 11 units Insulin Glargine (Lantus Per Unit Charge) 25 units SQ BID [facility] Stop: 04/22/23 20:59 Last Admin: 03/30/23 08:21 Dose: 25 units Levothyroxine Sodium (Levothyroxine Sodium 200 Mcg Tablet) 200 mcg PO DAILYBB [facility] Stop: 04/23/23 06:29 Last Admin: 03/30/23 05:44 Dose: 200 mcg Levothyroxine Sodium (Levothyroxine Sodium 50 Mcg Tablet) 50 mcg PO DAILYBB [facility] Stop: 04/23/23 06:29 Last Admin: 03/30/23 05:43 Dose: 50 mcg Lidocaine (Lidocaine 5% 1 Patch) 1 patch TD DAILY@1900 [facility] Stop: 04/22/23 18:59 Last Admin: 03/29/23 18:20 Dose: Not Given Magnesium Oxide (Magnesium Oxide 400 Mg Tab) 400 mg PO BID [facility] Stop: 04/22/23 20:59 Last Admin: 03/30/23 07:48 Dose: 400 mg Meclizine HCl (Meclizine 12.5 Mg Tab) 12.5 mg PO TID PRN PRN Reason: Vertigo Stop: 04/23/23 17:00 Last Admin: 03/24/23 19:38 Dose: 12.5 mg Miscellaneous (Carbohydrates For Hypoglycemia ) 15 - 30 gm PO UD PRN PRN Reason: Hypoglycemia Protocol Stop: 04/22/23 16:59 Miscellaneous (Remove Lidoderm Patch) 1 each N/A DAILY@0655 [facility] Stop: 04/23/23 06:54 Last Admin: 03/30/23 06:17 Dose: Not Given Oxycodone HCl (Oxycodone Hcl Ir 5 Mg Tab (Immediate Release)) 5 mg PO Q4H PRN PRN Reason: Pain Stop: 04/06/23 22:24 Last Admin: 03/30/23 10:37 Dose: 5 mg Pantoprazole Sodium (Pantoprazole 40 Mg Tab) 40 mg PO QAM [facility] Stop: 04/23/23 08:59 Last Admin: 03/30/23 07:48 Dose: 40 mg Polyethylene Glycol (Polyethylene (Miralax) 17 Gm Pack) 17 gm PO DAILY PRN PRN Reason: Constipation Stop: 04/25/23 12:20 Last Admin: 03/30/23 14:52 Dose: 17 gm Potassium Chloride (Potassium Chloride Crtab 20 Meq Tabcr) 20 meq PO BID ROBERT Stop: 04/22/23 20:59 Last Admin: 03/30/23 07:48 Dose: 20 meq Ropinirole HCl (Ropinirole Hcl 2 Mg Tablet) 2 mg PO HS [facility] Stop: 04/22/23 20:59 Last Admin: 03/29/23 20:11 Dose: 2 mg Senna/Docusate Sodium (Docusate Sodium/Senna 50/8.6mg Tab) 1 tab PO BID ROBERT Stop: 04/26/23 05:54 Last Admin: 03/30/23 07:47 Dose: 1 tab Tramadol HCl (Tramadol Hcl 50 Mg Tablet) 50 mg PO TID PRN PRN Reason: Pain Stop: 04/22/23 16:24 Last Admin: 03/29/23 02:17 Dose: 50 mg Trazodone HCl (Trazodone Hcl 100 Mg Tab) 100 mg PO HS [facility] Stop: 04/22/23 20:59 Last Admin: 03/29/23 20:11 Dose: 100 mg Vitamin D (Cholecalciferol 1,000 Units 25 Mcg Tab) [facility] [place]: 04/23/23 08:59 Last Admin: 03/30/23 07:47 Dose: 1,000 units (7) Diabetes mellitus, type II Diabetes mellitus complication status: with other specified complication Diabetes mellitus alf insulin use: with alf use Qualified Code(s): E11.69 - Type 2 diabetes mellitus with other specified complication; 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
[2023-03-30] MEDS: LIDOCAINE 5% 1 PATCH TD SCH (18:18)
[2023-03-30] MEDS: traZODone HCL 100 MG TAB PO SCH (20:57)
[2023-03-30] MEDS: rOPINIRole HCL 2 MG TABLET PO SCH (20:58)
[2023-03-30] MEDS: CLOTRIMAZOLE 1% CR 15 GM TUBE EXT PRN (21:04)
[2023-03-31] MEDS: oxyCODONE HCL IR 5 MG TAB (IMMEDIATE RELEASE) PO PRN ×3 (03:50→18:53)
[2023-03-31] MEDS: LEVOTHYROXINE SODIUM 200 MCG TABLET PO SCH (05:42)
[2023-03-31] MEDS: LEVOTHYROXINE SODIUM 50 MCG TABLET PO SCH (05:42)
[2023-03-31] MEDS: MAGNESIUM OXIDE 400 MG TAB PO SCH ×2 (07:32→20:16)
[2023-03-31] MEDS: CHOLECALCIFEROL 1,000 UNITS 25 MCG TAB PO SCH (07:32)
[2023-03-31] MEDS: GABAPENTIN 300 MG CAP PO SCH ×3 (07:32→20:17)
[2023-03-31] MEDS: PANTOprazole 40 MG TAB PO SCH (07:32)
[2023-03-31] MEDS: POTASSIUM CHLORIDE CRTAB 20 MEQ TABCR PO SCH ×2 (07:33→20:18)
[2023-03-31] MEDS: FUROSEMIDE 20 MG TAB PO SCH ×2 (07:33→20:17)
[2023-03-31] MEDS: DULoxetine HCL 60 MG CAP PO SCH (07:33)
[2023-03-31] MEDS: DOCUSATE SODIUM/SENNA 50/8.6MG TAB PO SCH ×2 (07:35→20:18)
[2023-03-31] MEDS: INSULIN ASPART PER UNIT CHARGE SC SCH ×4 (08:29→21:22)
[2023-03-31] MEDS: LANTUS PER UNIT CHARGE SQ SCH ×2 (08:30→21:22)
[2023-03-31] MEDS: LIDOCAINE 5% 1 PATCH TD SCH (18:24)
--- NOTE | 2023-03-31 19:35 | Hospitalist Progress Note ---
Date of Service March 31, 2023 Assessment & Plan (1) Intractable back pain: Plan: This is a 67 y/o female with a history of chronic respiratory failure due to probable interstitial lung disease, on chronic O2 at 3 L, ELISSA on CPAP, chronic diastolic heart failure, PVD, HTN, hyperlipidemia, insulin-requiring DM, CKD with baseline creatinine ~1.6, prior DVT/PE, s/p IVC filter placement and on Eliquis, hx HIT, hypothyroidism, fibromyalgia, RLS and depression who presents to the ED today with worsening back pain and increased difficulty getting around safely at home. During her recent admission earlier this month, rehab was recommended by PT but insurance refused to cover to instead pt discharged home with home health. Initially, she felt like she was doing okay but over the last few days, her pain has been increasing and she feels like she is getting weaker, may fall even with using rollator. Work-up in the ED negative for acute pathology but pt unable to be safely discharged home with the severe intractable pain so referred for admission and consideration again for possible placement. Intractable back pain H/O sciatica per patient H/O fibromyalgia Ambulatory dysfunction secondary to above --Lumbar X ray:No acute bony abnormality is seen involving the lumbar spine. Osteopenia and spondylotic change as above. --Sacrum X ray:No acute abnormality and in particular no evidence of acute fracture. Follows with pain management as outpatient--scheduled for epidural steroid injection by Dr. Ahn on March 30 Fall precautions, PT OT Discussed with pain management on 03/25/2023: Advised to continue current management, PT Continue gabapentin, duloxetine, baclofen as needed Also on oxycodone as needed Waiting for rehab/snf placement Abnormality serology for Lyme's disease No signs of acute infection IgM Western blot for Lyme's negative No indication for treatment currently Urinary tract infection-POA Outpatient urine culture from 03/21/2023 grew Citrobacter freundii (resistant to cefoxitin, ceftriaxone, Zosyn) Since due to cefepime, Cipro, gentamicin, meropenem, nitrofurantoin, Bactrim Completed ciprofloxacin course on 03/29 Dermatophyte infection left leg Continue Topical Clotrimazole Constipation Continue bowel regimen Morbid obesity BMI 53 (2) Hypothyroidism: Plan: Continue levothyroxine (3) HTN (hypertension): Plan: Not on any meds Consider adding antihypertensives if blood pressure persistently elevated (4) GERD (gastroesophageal reflux disease): Plan: Continue Protonix (5) ELISSA on CPAP: Plan: CPAP at bedtime (6) CKD (chronic kidney disease), stage III: Plan: Baseline Cr 1.6-1.7 Monitor renal function Avoid nephrotoxic agents as able (7) Diabetes mellitus, type II: Plan: - Diabetic diet - Baseline lantus, novolog sliding scale - BSG ACHS (8) Chronic diastolic heart failure: Plan: - Continue Lasix Monitor volume status (9) Chronic respiratory failure: Plan: Chronic respiratory failure with hypoxia H/O ILD On 3L O2 at baseline (10) RLS (restless legs syndrome): (11) Fibromyalgia: (12) Major depression, recurrent: Plan: Continue home medication Consulted psychiatry per patient's request Plan DVT Px: Eliquis Code Status: Full code Disposition Waiting for rehab placement Admission and Anticipated Discharge Date Admission Date: March 24, 2023 Subjective Patient is seen and examined at bedside No new complaints Continues to have back pain and difficulty w/ ambulation Denies any chest pain, dyspnea, dizziness, nausea, vomiting, abdominal pain Waiting for rehab/snf placement Review of Systems Review of Systems: All systems reviewed & are unremarkable except as noted in Subjective Physical Exam Physical Exam: General Appearance:Morbidly Obese, no apparent distress Head: normocephalic, Atraumatic Eyes: normal inspection, EOMI Neck: supple Respiratory/Chest: Decreased breath sounds, CTA, No accessory muscle use Cardiovascular: S1, S2, No murmur Abdomen/GI:Soft, Non tender, Bowel sounds present Extremities/Musculoskeletal:normal inspection, 1+ B/L LE edema Neurologic/Psych:AAOX3, grossly no focal neurological deficits Skin: normal color, warm Results & Data Results & Data Vital Signs (Past 12 Hours) Vital Signs Temp Pulse Resp BP Pulse Ox O2 Del Method O2 Flow Rate 03/31/23 15:24 36.4 C L 74 18 134/69 95 Nasal Cannula 3 03/31/23 08:00 Nasal Cannula 3 03/31/23 07:43 36.5 C 81 19 151/78 H 97 Nasal Cannula 3 Medications Administered Current Inpatient Medications Acetaminophen (Acetaminophen 500 Mg Tab) 1,000 mg PO Q8H PRN PRN Reason: pain Stop: 04/22/23 17:03 Last Admin: 04/01/23 05:50 Dose: 1,000 mg Apixaban (Apixaban 5 Mg Tablet) 5 mg PO BID ROBERT Stop: 04/22/23 20:59 Last Admin: 03/28/23 08:00 Dose: 5 mg Baclofen (Baclofen 10 Mg Tab) 10 mg PO BID PRN PRN Reason: muscle spasm Stop: 04/22/23 16:24 Last Admin: 03/31/23 20:16 Dose: 10 mg Bisacodyl (Bisacodyl 5 Mg Tabec) 5 mg PO DAILY PRN PRN Reason: Constipation Stop: 04/25/23 12:21 Last Admin: 03/26/23 17:44 Dose: 5 mg Clonazepam (Clonazepam 0.5 Mg Tab) 0.5 mg PO BID PRN PRN Reason: anxiety Stop: 04/22/23 16:24 Last Admin: 03/31/23 20:16 Dose: 0.5 mg Clotrimazole (Clotrimazole 1% Cr 15 Gm Tube) 1 appln EXT BID PRN PRN Reason: left leg Stop: 04/26/23 11:45 Last Admin: 03/31/23 21:16 Dose: 1 appln Dextrose (Dextrose 50% 50 Ml Syringe) 25 - 50 ml IV UD PRN; Protocol PRN Reason: Hypoglycemia Protocol Stop: 04/22/23 16:59 Dicyclomine HCl (Dicyclomine Hcl 20 Mg Tab) 20 mg PO QID PRN PRN Reason: abdominal pain Stop: 04/22/23 16:24 Last Admin: 03/31/23 21:16 Dose: 20 mg Diphenhydramine HCl (Diphenhydramine Hcl 12.5 Mg/5 Ml Udc) 12.5 mg PO Q8H PRN PRN Reason: Itching Stop: 04/26/23 11:57 Last Admin: 03/29/23 11:41 Dose: 12.5 mg Docusate Sodium (Docusate Sodium 100 Mg Cap) 100 mg PO BID PRN PRN Reason: Constipation Stop: 04/22/23 16:24 Last Admin: 03/24/23 08:22 Dose: 100 mg Duloxetine HCl (Duloxetine Hcl 60 Mg Cap) 60 mg PO QAM [facility] Stop: 04/23/23 08:59 Last Admin: 03/31/23 07:33 Dose: 60 mg Furosemide (Furosemide 20 Mg Tab) 60 mg PO BID ROBERT Stop: 04/27/23 19:24 Last Admin: 03/31/23 20:17 Dose: 60 mg Gabapentin (Gabapentin 300 Mg Cap) 600 mg PO TID ROBERT Stop: 04/22/23 20:59 Last Admin: 03/31/23 20:17 Dose: 600 mg Glucagon (Glucagon For Inj 1 Mg Vial) 1 mg SQ UD PRN; Protocol PRN Reason: Hypoglycemia Protocol Stop: 04/22/23 16:59 Glucose (Glucose 10 Tab/Tube) 4 - 8 tab PO UD PRN; Protocol PRN Reason: Hypoglycemia Treatment Stop: 04/22/23 16:59 Glucose (Glucose 40% Gel 15 Gm Tube) 15 - 30 gm PO UD PRN; Protocol PRN Reason: Hypoglycemia Protocol Stop: 04/22/23 16:59 Insulin Aspart (Insulin Aspart Per Unit Charge) 0 units SC ACHS [facility] Stop: 04/22/23 20:59 Last Admin: 03/31/23 21:22 Dose: 2 units Insulin Glargine (Lantus Per Unit Charge) 25 units SQ BID [facility] Stop: 04/22/23 20:59 Last Admin: 03/31/23 21:22 Dose: 25 units Levothyroxine Sodium (Levothyroxine Sodium 200 Mcg Tablet) 200 mcg PO DAILYBB [facility] Stop: 04/23/23 06:29 Last Admin: 04/01/23 05:50 Dose: 200 mcg Levothyroxine Sodium (Levothyroxine Sodium 50 Mcg Tablet) 50 mcg PO DAILYBB [facility] Stop: 04/23/23 06:29 Last Admin: 04/01/23 05:50 Dose: 50 mcg Lidocaine (Lidocaine 5% 1 Patch) 1 patch TD DAILY@1900 [facility] Stop: 04/22/23 18:59 Last Admin: 03/31/23 18:24 Dose: Not Given Magnesium Oxide (Magnesium Oxide 400 Mg Tab) 400 mg PO BID [facility] Stop: 04/22/23 20:59 Last Admin: 03/31/23 20:16 Dose: 400 mg Meclizine HCl (Meclizine 12.5 Mg Tab) 12.5 mg PO TID PRN PRN Reason: Vertigo Stop: 04/23/23 17:00 Last Admin: 03/24/23 19:38 Dose: 12.5 mg Miscellaneous (Carbohydrates For Hypoglycemia ) 15 - 30 gm PO UD PRN PRN Reason: Hypoglycemia Protocol Stop: 04/22/23 16:59 Miscellaneous (Remove Lidoderm Patch) 1 each N/A DAILY@0655 [facility] Stop: 04/23/23 06:54 Last Admin: 03/31/23 07:34 Dose: Not Given Oxycodone HCl (Oxycodone Hcl Ir 5 Mg Tab (Immediate Release)) 5 mg PO Q4H PRN PRN Reason: Pain Stop: 04/06/23 22:24 Last Admin: 04/01/23 01:55 Dose: 5 mg Pantoprazole Sodium (Pantoprazole 40 Mg Tab) 40 mg PO QAM [facility] Stop: 04/23/23 08:59 Last Admin: 03/31/23 07:32 Dose: 40 mg Polyethylene Glycol (Polyethylene (Miralax) 17 Gm Pack) 17 gm PO DAILY PRN PRN Reason: Constipation Stop: 04/25/23 12:20 Last Admin: 03/30/23 14:52 Dose: 17 gm Potassium Chloride (Potassium Chloride Crtab 20 Meq Tabcr) 20 meq PO BID [facility] Stop: 04/22/23 20:59 Last Admin: 03/31/23 20:18 Dose: 20 meq Ropinirole HCl (Ropinirole Hcl 2 Mg Tablet) 2 mg PO HS [facility] Stop: 04/22/23 20:59 Last Admin: 03/31/23 20:17 Dose: 2 mg Senna/Docusate Sodium (Docusate Sodium/Senna 50/8.6mg Tab) 1 tab PO BID [facility] Stop: 04/26/23 05:54 Last Admin: 03/31/23 20:18 Dose: 1 tab Tramadol HCl (Tramadol Hcl 50 Mg Tablet) 50 mg PO TID PRN PRN Reason: Pain Stop: 04/22/23 16:24 Last Admin: 03/29/23 02:17 Dose: 50 mg Trazodone HCl (Trazodone Hcl 100 Mg Tab) 100 mg PO HS [facility] Stop: 04/22/23 20:59 Last Admin: 03/31/23 20:17 Dose: 100 mg Vitamin D (Cholecalciferol 1,000 Units 25 Mcg Tab) 1,000 units PO QAM [facility] Stop: 04/23/23 08:59 Last Admin: 03/31/23 07:32 Dose: 1,000 units (7) Diabetes mellitus, type II Diabetes mellitus complication status: with other specified complication Diabetes mellitus chcf insulin use: with chcf use Qualified Code(s): E11.69 - Type 2 diabetes mellitus with other specified complication; Z79.4 - prison (current) use of insulin
[2023-03-31] MEDS: BACLOFEN 10 MG TAB PO PRN (20:16)
[2023-03-31] MEDS: clonazePAM 0.5 MG TAB PO PRN (20:16)
[2023-03-31] MEDS: traZODone HCL 100 MG TAB PO SCH (20:17)
[2023-03-31] MEDS: rOPINIRole HCL 2 MG TABLET PO SCH (20:17)
[2023-03-31] MEDS: CLOTRIMAZOLE 1% CR 15 GM TUBE EXT PRN (21:16)
[2023-04-01] MEDS: oxyCODONE HCL IR 5 MG TAB (IMMEDIATE RELEASE) PO PRN (01:55)
[2023-04-01] MEDS: LEVOTHYROXINE SODIUM 50 MCG TABLET PO SCH (05:50)
[2023-04-01] MEDS: ACETAMINOPHEN 500 MG TAB PO PRN (05:50)
[2023-04-01] MEDS: LEVOTHYROXINE SODIUM 200 MCG TABLET PO SCH (05:50)
--- NOTE | 2023-04-01 07:57 | Hospitalist Progress Note ---
Date of Service April 01, 2023 Assessment & Plan (1) Intractable back pain: Plan: This is a 67 y/o female with a history of chronic respiratory failure due to probable interstitial lung disease, on chronic O2 at 3 L, ELISSA on CPAP, chronic diastolic heart failure, PVD, HTN, hyperlipidemia, insulin-requiring DM, CKD with baseline creatinine ~1.6, prior DVT/PE, s/p IVC filter placement and on Eliquis, hx HIT, hypothyroidism, fibromyalgia, RLS and depression who presents to the ED today with worsening back pain and increased difficulty getting around safely at home. During her recent admission earlier this month, rehab was recommended by PT but insurance refused to cover to instead pt discharged home with home health. Initially, she felt like she was doing okay but over the last few days, her pain has been increasing and she feels like she is getting weaker, may fall even with using rollator. Work-up in the ED negative for acute pathology but pt unable to be safely discharged home with the severe intractable pain so referred for admission and consideration again for possible placement. Intractable back pain H/O sciatica per patient H/O fibromyalgia Ambulatory dysfunction secondary to above --Lumbar X ray:No acute bony abnormality is seen involving the lumbar spine. Osteopenia and spondylotic change as above. --Sacrum X ray:No acute abnormality and in particular no evidence of acute fracture. Follows with pain management as outpatient--scheduled for epidural steroid injection by Dr. Ahn on March 30 (which she missed d/t being admitted) Fall precautions, PT OT Discussed with pain management on 03/25/2023: Advised to continue current management, PT Continue gabapentin, duloxetine, baclofen as needed Also on oxycodone as needed Waiting for rehab/snf placement [facility] Patient should follow-up with pain management, Dr. Ahn as soon as possible Abnormality serology for Lyme's disease No signs of acute infection IgM Western blot for Lyme's negative No indication for treatment currently Urinary tract infection-POA Outpatient urine culture from 03/21/2023 grew Citrobacter freundii (resistant to cefoxitin, ceftriaxone, Zosyn) Since due to cefepime, Cipro, gentamicin, meropenem, nitrofurantoin, Bactrim Completed ciprofloxacin course on 03/29 Dermatophyte infection left leg Continue Topical Clotrimazole Constipation Continue bowel regimen Morbid obesity BMI 53 (2) Hypothyroidism: Plan: Continue levothyroxine (3) HTN (hypertension): Plan: Not on any meds BP now at goal (4) GERD (gastroesophageal reflux disease): Plan: Continue Protonix (5) ELISSA on CPAP: Plan: CPAP at bedtime (6) CKD (chronic kidney disease), stage III: Plan: Baseline Cr 1.6-1.7 Monitor renal function Avoid nephrotoxic agents as able (7) Diabetes mellitus, type II: Plan: - Diabetic diet - Baseline lantus, novolog sliding scale - BSG ACHS (8) Chronic diastolic heart failure: Plan: - Continue Lasix Monitor volume status (9) Chronic respiratory failure: Plan: Chronic respiratory failure with hypoxia H/O ILD On 3L O2 at baseline (10) RLS (restless legs syndrome): (11) Fibromyalgia: (12) Major depression, recurrent: Plan: Continue home medication Consulted psychiatry per patient's request Plan DVT Px: Eliquis Code Status: Full code Disposition Waiting for rehab placement - plan to DC to [place] [facility] Admission and Anticipated Discharge Date Admission Date: March 24, 2023 Subjective Patient seen in follow up of back pain No new complaints Continues to have back pain and difficulty w/ ambulation Denies any chest pain, dyspnea, dizziness, nausea, vomiting, abdominal pain Waiting for rehab/snf placement plan to [facility] (peer to peer obtained and pt approved) Review of Systems Review of Systems: All systems reviewed & are unremarkable except as noted in Subjective Physical Exam Physical Exam: General Appearance:Morbidly Obese, no apparent distress Head: normocephalic, Atraumatic Eyes: normal inspection, EOMI Neck: supple Respiratory/Chest: Decreased breath sounds, CTA, No accessory muscle use Cardiovascular: S1, S2, No murmur Abdomen/GI:Soft, Non tender, Bowel sounds present Extremities/Musculoskeletal:normal inspection, 1+ B/L LE edema Neurologic/Psych:AAOX3, grossly no focal neurological deficits Skin: normal color, warm Results & Data Results & Data Vital Signs (Past 12 Hours) Vital Signs Temp Pulse Pulse Resp BP Pulse Ox O2 Del Method 04/01/23 07:18 36.4 C L 81 18 121/70 95 Nasal Cannula 03/31/23 22:30 78 17 97 03/31/23 20:08 36.6 C 82 18 124/79 98 Nasal Cannula O2 Flow Rate 04/01/23 07:18 3 03/31/23 22:30 3 03/31/23 20:08 3 Laboratory Results 04/01/23 04/01/23 04/01/23 Range/Units 12:25 11:57 08:11 POC Glucose 223 H 206 H (70-99) mg/dl SARS-CoV-2, RNA, NAAT NEGATIVE (NEGATIVE) 03/31/23 03/31/23 Range/Units 20:49 17:03 POC Glucose 166 H 172 H (70-99) mg/dl SARS-CoV-2, RNA, NAAT (NEGATIVE) Medications Administered Current Inpatient Medications Acetaminophen (Acetaminophen 500 Mg Tab) 1,000 mg PO Q8H ROBERT Stop: 05/01/23 07:59 Last Admin: 04/01/23 08:43 Dose: 1,000 mg Apixaban (Apixaban 5 Mg Tablet) 5 mg PO BID ROBERT Stop: 04/22/23 20:59 Last Admin: 03/28/23 08:00 Dose: 5 mg Baclofen (Baclofen 10 Mg Tab) 10 mg PO BID PRN PRN Reason: muscle spasm Stop: 04/22/23 16:24 Last Admin: 03/31/23 20:16 Dose: 10 mg Bisacodyl (Bisacodyl 5 Mg Tabec) 5 mg PO DAILY PRN PRN Reason: Constipation Stop: 04/25/23 12:21 Last Admin: 03/26/23 17:44 Dose: 5 mg Clonazepam (Clonazepam 0.5 Mg Tab) 0.5 mg PO BID PRN PRN Reason: anxiety Stop: 04/22/23 16:24 Last Admin: 04/01/23 08:43 Dose: 0.5 mg Clotrimazole (Clotrimazole 1% Cr 15 Gm Tube) 1 appln EXT BID PRN PRN Reason: left leg Stop: 04/26/23 11:45 Last Admin: 04/01/23 08:35 Dose: 1 appln Dextrose (Dextrose 50% 50 Ml Syringe) 25 - 50 ml IV UD PRN; Protocol PRN Reason: Hypoglycemia Protocol Stop: 04/22/23 16:59 Dicyclomine HCl (Dicyclomine Hcl 20 Mg Tab) 20 mg PO QID PRN PRN Reason: abdominal pain Stop: 04/22/23 16:24 Last Admin: 03/31/23 21:16 Dose: 20 mg Diphenhydramine HCl (Diphenhydramine Hcl 12.5 Mg/5 Ml Udc) 12.5 mg PO Q8H PRN PRN Reason: Itching Stop: 04/26/23 11:57 Last Admin: 03/29/23 11:41 Dose: 12.5 mg Docusate Sodium (Docusate Sodium 100 Mg Cap) 100 mg PO BID PRN PRN Reason: Constipation Stop: 04/22/23 16:24 Last Admin: 03/24/23 08:22 Dose: 100 mg Duloxetine HCl (Duloxetine Hcl 60 Mg Cap) 60 mg PO QAM [facility] Stop: 04/23/23 08:59 Last Admin: 04/01/23 08:36 Dose: 60 mg Furosemide (Furosemide 20 Mg Tab) 60 mg PO BID [facility] Stop: 04/27/23 19:24 Last Admin: 04/01/23 08:35 Dose: 60 mg Gabapentin (Gabapentin 300 Mg Cap) 600 mg PO TID [facility] Stop: 04/22/23 20:59 Last Admin: 04/01/23 08:36 Dose: 600 mg Glucagon (Glucagon For Inj 1 Mg Vial) 1 mg SQ UD PRN; Protocol PRN Reason: Hypoglycemia Protocol Stop: 04/22/23 16:59 Glucose (Glucose 10 Tab/Tube) 4 - 8 tab PO UD PRN; Protocol PRN Reason: Hypoglycemia Treatment Stop: 04/22/23 16:59 Glucose (Glucose 40% Gel 15 Gm Tube) 15 - 30 gm PO UD PRN; Protocol PRN Reason: Hypoglycemia Protocol Stop: 04/22/23 16:59 Insulin Aspart (Insulin Aspart Per Unit Charge) 0 units SC ACHS [facility] Stop: 04/22/23 20:59 Last Admin: 04/01/23 12:28 Dose: 1,000 units Insulin Glargine (Lantus Per Unit Charge) 25 units SQ BID [facility] Stop: 04/22/23 20:59 Last Admin: 04/01/23 08:48 Dose: 25 units Levothyroxine Sodium (Levothyroxine Sodium 200 Mcg Tablet) 200 mcg PO DAILYBB [facility] Stop: 04/23/23 06:29 Last Admin: 04/01/23 05:50 Dose: 200 mcg Levothyroxine Sodium (Levothyroxine Sodium 50 Mcg Tablet) 50 mcg PO DAILYBB [facility] Stop: 04/23/23 06:29 Last Admin: 04/01/23 05:50 Dose: 50 mcg Lidocaine (Lidocaine 5% 1 Patch) 1 patch TD DAILY@1900 [facility] Stop: 04/22/23 18:59 Last Admin: 03/31/23 18:24 Dose: Not Given Magnesium Oxide (Magnesium Oxide 400 Mg Tab) 400 mg PO BID [facility] Stop: 04/22/23 20:59 Last Admin: 04/01/23 08:36 Dose: 400 mg Meclizine HCl (Meclizine 12.5 Mg Tab) 12.5 mg PO TID PRN PRN Reason: Vertigo Stop: 04/23/23 17:00 Last Admin: 03/24/23 19:38 Dose: 12.5 mg Miscellaneous (Carbohydrates For Hypoglycemia ) 15 - 30 gm PO UD PRN PRN Reason: Hypoglycemia Protocol Stop: 04/22/23 16:59 Miscellaneous (Remove Lidoderm Patch) 1 each N/A DAILY@0655 [facility] Stop: 04/23/23 06:54 Last Admin: 04/01/23 08:34 Dose: 1 each Oxycodone HCl (Oxycodone Hcl Ir 5 Mg Tab (Immediate Release)) 5 mg PO Q4H PRN PRN Reason: Pain Stop: 04/06/23 22:24 Last Admin: 04/01/23 01:55 Dose: 5 mg Pantoprazole Sodium (Pantoprazole 40 Mg Tab) 40 mg PO QAM [facility] Stop: 04/23/23 08:59 Last Admin: 04/01/23 08:36 Dose: 40 mg Polyethylene Glycol (Polyethylene (Miralax) 17 Gm Pack) 17 gm PO DAILY PRN PRN Reason: Constipation Stop: 04/25/23 12:20 Last Admin: 03/30/23 14:52 Dose: 17 gm Potassium Chloride (Potassium Chloride Crtab 20 Meq Tabcr) 20 meq PO BID [facility] Stop: 04/22/23 20:59 Last Admin: 04/01/23 08:35 Dose: 20 meq Ropinirole HCl (Ropinirole Hcl 2 Mg Tablet) 2 mg PO HS [facility] Stop: 04/22/23 20:59 Last Admin: 03/31/23 20:17 Dose: 2 mg Senna/Docusate Sodium (Docusate Sodium/Senna 50/8.6mg Tab) 1 tab PO BID [facility] Stop: 04/26/23 05:54 Last Admin: 04/01/23 08:35 Dose: 1 tab Tramadol HCl (Tramadol Hcl 50 Mg Tablet) 50 mg PO TID ROBERT Stop: 05/01/23 08:59 Last Admin: 04/01/23 08:43 Dose: 50 mg Trazodone HCl (Trazodone Hcl 100 Mg Tab) 100 mg PO HS [facility] Stop: 04/22/23 20:59 Last Admin: 03/31/23 20:17 Dose: 100 mg Vitamin D (Cholecalciferol 1,000 Units 25 Mcg Tab) 1,000 units PO QAM ROBERT Stop: 04/23/23 08:59 Last Admin: 04/01/23 08:35 Dose: 1,000 units (7) Diabetes mellitus, type II Diabetes mellitus complication status: with other specified complication Diabetes mellitus mcfp insulin use: with terminal carman use Qualified Code(s): E11.69 - Type 2 diabetes mellitus with other specified complication; Z79.4 - MCFP (current) use of insulin
[2023-04-01] MEDS ORDERED: ACETAMINOPHEN 500 MG TAB PO SCH (08:00)
[2023-04-01] MEDS: DOCUSATE SODIUM/SENNA 50/8.6MG TAB PO SCH (08:35)
[2023-04-01] MEDS: CLOTRIMAZOLE 1% CR 15 GM TUBE EXT PRN (08:35)
[2023-04-01] MEDS: POTASSIUM CHLORIDE CRTAB 20 MEQ TABCR PO SCH (08:35)
[2023-04-01] MEDS: CHOLECALCIFEROL 1,000 UNITS 25 MCG TAB PO SCH (08:35)
[2023-04-01] MEDS: FUROSEMIDE 20 MG TAB PO SCH (08:35)
[2023-04-01] MEDS: DULoxetine HCL 60 MG CAP PO SCH (08:36)
[2023-04-01] MEDS: PANTOprazole 40 MG TAB PO SCH (08:36)
[2023-04-01] MEDS: MAGNESIUM OXIDE 400 MG TAB PO SCH (08:36)
[2023-04-01] MEDS: GABAPENTIN 300 MG CAP PO SCH (08:36)
[2023-04-01] MEDS: clonazePAM 0.5 MG TAB PO PRN (08:43)
[2023-04-01] MEDS: INSULIN ASPART PER UNIT CHARGE SC SCH ×2 (08:47→12:28)
[2023-04-01] MEDS: LANTUS PER UNIT CHARGE SQ SCH (08:48)
[2023-04-01] MEDS ORDERED: traMADol HCL 50 MG TABLET PO SCH (09:00)
--- NOTE | 2023-04-01 13:26 | Discharge Summary ---
Date of Service April 01, 2023 Admission HPI Per Admitting Provider This is a 67 y/o female with a history of chronic respiratory failure due to probable interstitial lung disease, on chronic O2 at 3 L, ELISSA on CPAP, chronic diastolic heart failure, PVD, HTN, hyperlipidemia, insulin-requiring DM, CKD with baseline creatinine ~1.6, prior DVT/PE, s/p IVC filter placement and on Eliquis, hx HIT, hypothyroidism, fibromyalgia, RLS and depression who presents to the ED today with worsening back pain and increased difficulty getting around safely at home. Pt was recently admitted to this facility 03/05-03/11/23 due to worsening pain and muscle soreness as well as increased depressive symptoms. She was evaluated by both psychiatry and pain management with recommended med changes, which were made. Pt has an outpatient MICH scheduled with Dr. Ahn on 03/30 that was originally scheduled for this month but pt was admitted at that time so was unable to go to the appointment. These have helped her pain previously. Rehab was discussed during last admission but it was apparently denied by insurance, even after a [id number], despite being recommended by PT. She was discharged with home health and is a [facility] patient. Pt reports that initially she felt okay at home but has been having increased issues with pain and ambulation over the last few days. Three days ago started with upper back pain - no specific inciting event. Mostly on the left side under the scapula then radiates down her back. Area feels very tight - different from other pain she's been having. She also noted some balance issues last night when she was coming out of the bathroom. She does use a rollator walker at home. Still struggling with the depression - PCP wants to transition her back to sertraline from the duloxetine but pt reports this has not yet happened. She has also noted that her sugars at home have been dropping in the afternoons at home the last few days - has been drinking juice when this happens and felt better. No recent med changes, hadn't skipped any meals. Having head congestion intermittently - uses nasal spray prn. No increased work of breathing or feeling more short of breath. Uses 3L of O2 at baseline - hasn't needed to increase recently. Chills but no fevers. No N/V, diarrhea, constipation. Increased urinary frequency but no dysuria or hematuria. Last admission, increased the gabapentin and the Baclofen but pt unsure if this has helped her pain. Admission Exam Per Admitting Provider Constitutional: + morbidly obese; no acute distress Eyes: + anicteric sclerae Neck: trachea midline Respiratory: no respiratory distress and no labored breathing Auscultation: lungs clear to auscultation bilaterally; no rales and no rhonchi Cardiovascular: Rate/Rhythm: regular rate and regular rhythm Vessels: radial pulses present Extremities: + pedal edema (trace - right > left) Gastrointestinal (Abdomen): Inspection/Auscultation: + abdomen distended and normal bowel sounds Percussion/Palpation: abdomen soft; abdomen nontender Musculoskeletal: Head/Neck/Chest: normocephalic, head atraumatic and neck supple Skin: no jaundice Neurologic: moves all extremities; no focal motor deficits and not confused Psychiatric: Orientation: alert and oriented x 3 Affect: + depressed affect and + tearful affect mood labile during encounter Principal Diagnosis Intractable back pain, h/o sciatica, h/o fibromyalgia Discharge Exam General Appearance:Morbidly Obese, no apparent distress Head: normocephalic, Atraumatic Eyes: normal inspection, EOMI Neck: supple Respiratory/Chest: Decreased breath sounds, CTA, No accessory muscle use Cardiovascular: S1, S2, No murmur Abdomen/GI:Soft, Non tender, Bowel sounds present Extremities/Musculoskeletal:normal inspection, 1+ B/L LE edema Neurologic/Psych:AAOX3, grossly no focal neurological deficits Skin: normal color, warm Discharge Data Allergies Allergy/AdvReac Type Severity Reaction Status Date / Time morphine Allergy Severe VIOLENT Verified 03/05/23 09:09 REACTION-"ALMOST " SWELLING dapagliflozin [From Farxiga] Allergy Intermediate YEAST Unverified 03/05/23 09:09 INFECTIONS tetanus toxoid, adsorbed Allergy Intermediate PASSED OUT Verified 03/05/23 09:09 AND GOT SICK WHEN A CHILD bupropion [From Wellbutrin] AdvReac Intermediate Recurrent Verified 03/05/23 09:09 falls as per patient codeine AdvReac Intermediate Hallucinati Verified 03/05/23 09:09 ons empagliflozin AdvReac Intermediate YEAST Verified 03/05/23 09:09 [From Jardiance] INFECTIONS heparin AdvReac Intermediate HIT; FLUID Verified 03/05/23 09:09 IN LUNGS hydrocodone [From Vicodin] AdvReac Intermediate sleepiness Verified 03/05/23 09:09 Consultations 03/23/23 10:40 ED Decision to Admit Stat 03/26/23 07:44 Consult Behavioral Health Liaison Routine Ordered Studies 03/23/23 07:48 CT abd pelvis wo con Stat 03/28/23 19:32 CT cervical spine wo con Stat 03/28/23 21:29 CT ankle LT wo con Stat CT knee LT wo con Stat Hospital Course (1) Intractable back pain: This is a 67 y/o female with a history of chronic respiratory failure due to probable interstitial lung disease, on chronic O2 at 3 L, ELISSA on CPAP, chronic diastolic heart failure, PVD, HTN, hyperlipidemia, insulin-requiring DM, CKD with baseline creatinine ~1.6, prior DVT/PE, s/p IVC filter placement and on Eliquis, hx HIT, hypothyroidism, fibromyalgia, RLS and depression who presents to the ED today with worsening back pain and increased difficulty getting around safely at home. During her recent admission earlier this month, rehab was recommended by PT but insurance refused to cover to instead pt discharged home with home health. Initially, she felt like she was doing okay but over the last few days, her pain has been increasing and she feels like she is getting weaker, may fall even with using rollator. Work-up in the ED negative for acute pathology but pt unable to be safely discharged home with the severe intractable pain so referred for admission and consideration again for possible placement. Intractable back pain H/O sciatica per patient H/O fibromyalgia Ambulatory dysfunction secondary to above --Lumbar X ray:No acute bony abnormality is seen involving the lumbar spine. Osteopenia and spondylotic change as above. --Sacrum X ray:No acute abnormality and in particular no evidence of acute fracture. Follows with pain management as outpatient--scheduled for epidural steroid injection by Dr. Ahn on March 30 (which she missed d/t being admitted) Fall precautions, PT OT Discussed with pain management on 03/25/2023: Advised to continue current management, PT Continue gabapentin, duloxetine, baclofen as needed Also on oxycodone as needed Waiting for rehab/snf placement [facility] Patient should follow-up with pain management, Dr. Ahn as soon as possible Abnormality serology for Lyme's disease No signs of acute infection IgM Western blot for Lyme's negative No indication for treatment currently Urinary tract infection-POA Outpatient urine culture from 03/21/2023 grew Citrobacter freundii (resistant to cefoxitin, ceftriaxone, Zosyn) Since due to cefepime, Cipro, gentamicin, meropenem, nitrofurantoin, Bactrim Completed ciprofloxacin course on 03/29 Dermatophyte infection left leg Continue Topical Clotrimazole Constipation Continue bowel regimen Morbid obesity BMI 53 (2) Hypothyroidism: Continue levothyroxine (3) HTN (hypertension): Not on any meds BP now at goal (4) GERD (gastroesophageal reflux disease): Continue Protonix (5) ELISSA on CPAP: CPAP at bedtime (6) CKD (chronic kidney disease), stage III: Baseline Cr 1.6-1.7 Monitor renal function Avoid nephrotoxic agents as able (7) Diabetes mellitus, type II: - Diabetic diet - Baseline lantus, novolog sliding scale - BSG ACHS (8) Chronic diastolic heart failure: - Continue Lasix Monitor volume status (9) Chronic respiratory failure: Chronic respiratory failure with hypoxia H/O ILD On 3L O2 at baseline (10) RLS (restless legs syndrome): (11) Fibromyalgia: (12) Major depression, recurrent: Continue home medication Consulted psychiatry per patient's request Plan DVT Px: Eliquis Code Status: Full code Disposition Waiting for rehab placement - plan to DC to [place] [facility] Total Time Total Time Spent Total Time Spent (In Minutes): 40 Discharge Plan Discharge Items Patient Disposition: Transfer [facility] Reason For Visit: INTRACTABLE PAIN, AMBULATORY DYSFUNCTION Discharge Diagnosis: Intractable back pain, h/o sciatica, h/o fibromyalgia Activity: Per Instructions section Non-emergency contact: Primary Care Provider and Specialist Call non-emergency contact if: you have any medication questions and your symptoms worsen Follow-up/Referrals: Galdino Andujar, [Primary Care Provider] - Diet: Carb Consistent or DM2, Heart Healthy and Low Sodium (2gm) Addtl Attending Provider Instructions: It is strongly recommended that you follow-up with pain management, Dr. Ahn, as soon as possible. In the meantime, continue pain medications as currently prescribed. These medications can be further adjusted by primary care physician or supervisor painting [employer]. You should follow-up with primary care physician within 1 week. Pending Studies at Discharge: No Stand-Alone Forms: My [facility] Skilled Items Patient informed of condition?: Yes DNR: No Discharge Level of Care: Skilled Communicable Disease: No Discharge Prognosis: Other Lines: None Urinary Catheter: No Medications and DC Order Prescriptions: Continued levothyroxine 200 mcg Tablet 200 mcg PO QAM Rx Instructions: TAKE ONE 200 MCG TABLET ALONG WITH ONE 50 MCG TABLET TO EQUAL 250 MCG DAILY DOSE omeprazole 20 mg Capsule,Delayed Release(Dr/Ec) 20 mg PO QAM insulin degludec [Tresiba FlexTouch U-100] 100 unit/mL (3 mL) Insulin Pen 58 unit SUBCUT HS insulin aspart U-100 [Novolog FlexPen U-100 Insulin] 100 unit/mL (3 mL) insulin pen 40 unit SUBCUT DIRECTED Rx Instructions: plus sliding scale 1 unit for every 25 units bg >150 dicyclomine 20 mg tablet 20 mg PO QID PRN (Reason: abdominal pain) levothyroxine 50 mcg tablet 50 mcg PO QAM Rx Instructions: TOTAL DOSE 250 MCG--TAKES WITH 200 MCG TAB. docusate sodium [Colace] 100 mg capsule 100 mg PO BID PRN (Reason: Constipation) meclizine 12.5 mg tablet 12.5 mg PO TID PRN (Reason: Dizziness) clonazepam 0.5 mg Tablet 0.5 mg PO BID PRN (Reason: anxiety) Qty: 0 0RF ropinirole 2 mg Tablet 2 mg PO HS potassium chloride 20 mEq tablet,ER particles/crystals 20 meq PO BID metformin 500 mg tablet extended release 24 hr 500 mg PO QAM furosemide 40 mg tablet 60 mg PO BID Qty: 120 0RF Trulicity 4.5 mg/0.5 mL pen injector 4.5 mg SUBCUT WK Rx Instructions: TAKE THIS MED EVERY TUESDAY. magnesium oxide 400 mg (241.3 mg magnesium) tablet 400 mg PO BID tramadol 50 mg tablet 50 mg PO TID PRN (Reason: Pain) trazodone 100 mg tablet 100 mg PO HS acetaminophen 500 mg Tablet 500 - 1,000 mg PO Q6H PRN (Reason: Pain) cholecalciferol (vitamin D3) [Vitamin D3] 25 mcg (1,000 unit) Capsule 25 mcg PO QAM Eliquis 5 mg Tablet 5 mg PO BID baclofen 10 mg Tablet 10 mg PO BID PRN (Reason: muscle spasm) Qty: 30 0RF gabapentin 300 mg capsule 600 mg PO TID Qty: 30 0RF duloxetine 60 mg capsule,delayed release(DR/EC) 60 mg PO QAM Discharge Orders: Discharge Order (Routine); Ordered 04/01/23 Ordered By: Miguel Hampton Admission Data Admit Date/Time: 03/24/23 19:36 Attending Provider: Miguel Hampton Admit Provider: Pablo Borden Primary Care Provider: Galdino Andujar Other Providers: Vidal De Leon ; [place] ; [facility] ; Palbo Borden
== END 2023-04-01 14:12 | DRG 552 ==
LOC: 3W 06:23 → ED 06:23 → SUATTDRO 10:54 → 3W 13:50 → SUATTDRO 03-24 19:36
DX: M79.7 Fibromyalgia; F33.9 Major depressive disorder, recurrent, unspecified; K59.00 Constipation, unspecified; Z95.828 Presence of other vascular implants and grafts; Z68.43 Body mass index [BMI] 50.0-59.9, adult; Z99.81 Dependence on supplemental oxygen; I13.0 Hypertensive heart and chronic kidney disease with heart failure and stage 1 through stage 4 chronic kidney disease, or unspecified chronic kidney disease; Z86.718 Personal history of other venous thrombosis and embolism; E11.22 Type 2 diabetes mellitus with diabetic chronic kidney disease; E03.9 Hypothyroidism, unspecified; B96.89 Other specified bacterial agents as the cause of diseases classified elsewhere; N18.30 Chronic kidney disease, stage 3 unspecified; G25.81 Restless legs syndrome; N39.0 Urinary tract infection, site not specified; J96.11 Chronic respiratory failure with hypoxia; N13.6 Pyonephrosis; Z79.4 Long term (current) use of insulin; E66.01 Morbid (severe) obesity due to excess calories; Z79.890 Hormone replacement therapy; Z88.5 Allergy status to narcotic agent; B35.8 Other dermatophytoses; M54.89 Other dorsalgia; G47.33 Obstructive sleep apnea (adult) (pediatric); Z88.7 Allergy status to serum and vaccine; K21.9 Gastro-esophageal reflux disease without esophagitis; I50.32 Chronic diastolic (congestive) heart failure

== ENCOUNTER 2023-05-25 18:47 | Inpatient (IN) ==
--- NOTE | 2023-05-25 19:00 | Emergency Department Note ---
Impression & Plan Hypoglycemia, Diabetes mellitus, type II, Dizziness ED Provider Note NAME: GEENA MAC AGE: 68 SEX: F ARRIVES VIA: Ambulance INFORMANT: Patient ED PROVIDER(S): Regino Julien MD CHIEF COMPLAINT: Admit PLAN: Disposition: Admit MEDICAL DECISION MAKING: The patient is a pleasant 68-year-old woman with a past medical history of chronic respiratory failure with hypoxia on home oxygen, CHF, type 2 diabetes on insulin, CKD, ELISSA on CPAP, hypertension, hyperlipidemia, GERD, fibromyalgia who presents to the emergency department via EMS for evaluation of generalized weakness which she relates to ongoing low blood sugars which occurs after administering her Premeal insulin in the setting of having recent addition of Mounjaro to treat her diabetes and they have been down titrating her insulin dosing. However despite these changes she reports her blood sugar continues to get low today with significantly lower her Dexcom read in the 40s and she felt lightheaded as if she was going to pass out. Otherwise she denies symptoms in between these episodes of low blood sugar and denies fevers, chills, cough congestion, chest pain, shortness of breath, vomiting or diarrhea. On my evaluation the patient is fatigued appearing but no distress, afebrile with blood pressure 170/80s and vital signs otherwise stable. She appears euvolemic to dry. BSG On arrival had declined to the 50s after brief improvement with oral glucose with EMS. She was given additional oral intake which improved her blood sugar to the 80s. EKG without overt acute ischemia. WBC 12.2 K, nonspecific. H/H and platelets within normal limits. Chemistry with bicarbonate of 33 similar to prior values in setting of chronic respiratory failure. Creatinine 1.69, similar to prior in setting of CKD. Electrolytes without significant abnormality. LFTs unremarkable. Lipase within limits. TSH normal. UA with WBCs and otherwise no bacteria and nitrite negative. Patient suspect she may have a yeast infection and so will await culture at this time. Upon reevaluation the patient's blood sugar unfortunately declined again to the 50s and so amp of D50 was ordered. Given the persistence of her low blood sugar patient was for to hospital service for admission and further management. Case was discussed with Dr. Montes, [facility] hospitalist, who will evaluate the patient for admission. Further management per admitting team. Triage Nursing notes reviewed and agree them. Prior/outside medical records reviewed Vital Signs: reviewed Differential diagnosis: Infection, dehydration, metabolic abnormality, hypo/hyperglycemia, electrolyte disturbance, anemia, hypoxia, cardiac sources, intracerebral event, toxicologic, neurologic, as well as other pathologies. ER treatment provided: See below. Diagnostics interpreted by me: ECG: Normal sinus rhythm, 84 bpm, no ectopy, no overt ST elevation or depression, QTc 451 QRS 82. Cardiac Monitoring: An order for continuous cardiac monitoring was placed and demonstrated Normal sinus rhythm, 84 bpm, no ectopy. Laboratory studies: See below Imaging studies: See below Consultation(s): Case was discussed with Dr. Montes, [facility] hospitalist, who will evaluate the patient for admission. HPI: The patient is a pleasant 68-year-old woman with a past medical history of chronic respiratory failure with hypoxia on home oxygen, CHF, type 2 diabetes on insulin, CKD, ELISSA on CPAP, hypertension, hyperlipidemia, GERD, fibromyalgia who presents to the emergency department via EMS for evaluation of generalized weakness which she relates to ongoing low blood sugars which occurs after administering her Premeal insulin in the setting of having recent addition of Mounjaro to treat her diabetes and they have been down titrating her insulin dosing. However despite these changes she reports her blood sugar continues to get low today with significantly lower her Dexcom read in the 40s and she felt lightheaded as if she was going to pass out. Otherwise she denies symptoms in between these episodes of low blood sugar and denies fevers, chills, cough congestion, chest pain, shortness of breath, vomiting or diarrhea. ROS: See above HPI for pertinent positives & negatives. A total of 10 systems reviewed and were otherwise negative. VITALS:See Below PHYSICAL EXAMINATION: GENERAL: Awake, alert, fatigued-appearing, in no distress, BMI 52.5. HENT: Normocephalic, atraumatic. Oropharynx with dry mucous membranes and otherwise unremarkable. EYES: Normal conjunctiva. Sclera non-icteric. NECK: Supple. No nuchal rigidity. FROM. No JVD. RESPIRATORY: Clear to auscultation. CARDIAC: Regular rate, normal rhythm. Extremities warm and well perfused. Pulses equal. ABDOMEN: Soft, non-distended. No tenderness to palpation. No rebound or guarding. No masses. RECTAL: Deferred. MUSCULOSKELETAL: Chest examination reveals no tenderness. The back is symmetrical on inspection without obvious abnormality. There is no CVA tenderness to palpation. No joint edema. LOWER EXTREMITIES: Calves are equal size bilaterally and non-tender. No edema. No discoloration. NEURO: Normal sensorium. No sensory or motor deficits noted. SKIN: No rash or jaundice noted. Regino Julien MD Past Med/Surg History Medical History Acute metabolic encephalopathy Carotid stenosis, right CHF (congestive heart failure) follows with Dr. Woodall CKD (chronic kidney disease), stage III follows with [facility] Depression with anxiety Diabetes mellitus, type II DVT (deep venous thrombosis) at present behind right knee, on Eliquis for this DVT prophylaxis Fibromyalgia Frequent UTI none at present that pt is aware of GERD (gastroesophageal reflux disease) History of DVT (deep vein thrombosis) 2008 due to being in ICU [place] due to pneumonia History of pulmonary embolism 2008 s/p zoraida filter HIT (heparin-induced thrombocytopenia) 2009, [facility] then life flight to [place] > resolved HLD (hyperlipidemia) HTN (hypertension) Hypothyroidism Lower extremity pain, bilateral Lumbago Lumbago with sciatica Morbid obesity Nausea and vomiting after administration of anesthetic agent Neuropathy bilat feet On home oxygen therapy 2-4 continuous ELISSA on CPAP Presence of IVC filter 2008 RLS (restless legs syndrome) Subclavian artery stenosis follows with Dr. Woodall with [facility] Surgical History History of arthroscopy left ankle History of cholecystectomy History of colon resection secondary to R colon perforation, resected treated with colostomy and eventual reversal in 2008, Dr. Lerma History of colonoscopy History of incisional hernia repair History of thyroidectomy, total 2010 History of tooth extraction History of total right knee replacement History of tracheostomy 2008, secondary to acute resp failure secondary to pneumonia, since reversed in 2010 Family History Father , age 74 Lung cancer Mother , age 45 Cirrhosis Social History Smoking Status: Former smoker Tobacco Type: Cigarettes Cigarettes Per Day: 15 pack year hx; Second Hand Exposure: No; Do You Dip or Chew Tobacco: No; Hx Alcohol Use: No Hx Substance Use: No Preferred Language: German Communication Ability: Effective Battery Loader Required: No Beliefs That Will Affect Care: None marital status: Single Current Living Situation: Alone How many Children do You have: 0 Feels Safe at Home: Yes Assistive Devices: Cane, Oxygen - Continuous and Walker Allergies Allergies Allergy/AdvReac Type Severity Reaction Status Date / Time morphine Allergy Severe VIOLENT Verified 05/25/23 19:43 REACTION-"ALMOST " SWELLING dapagliflozin [From Farxiga] Allergy Intermediate YEAST Verified 05/25/23 19:43 INFECTIONS tetanus toxoid, adsorbed Allergy Intermediate PASSED OUT Verified 05/25/23 19:43 AND GOT SICK WHEN A CHILD bupropion [From Wellbutrin] AdvReac Intermediate Recurrent Verified 05/25/23 19:43 falls as per patient codeine AdvReac Intermediate Hallucinati Verified 05/25/23 19:43 ons empagliflozin AdvReac Intermediate YEAST Verified 05/25/23 19:43 [From Jardiance] INFECTIONS heparin AdvReac Intermediate HIT; FLUID Verified 05/25/23 19:43 IN LUNGS hydrocodone [From Vicodin] AdvReac Intermediate sleepiness Verified 05/25/23 19:43 Home Meds Home Medications Medication Instructions Recorded Confirmed levothyroxine 200 mcg tablet 200 mcg PO QAM 06/09/18 05/25/23 omeprazole 20 mg capsule,delayed 20 mg PO QAM 06/09/18 05/25/23 release insulin degludec 100 unit/mL (3 50 unit subcut HS 11/24/20 05/25/23 mL) subcutaneous pen (Tresiba FlexTouch U-100 insulin) dicyclomine 20 mg tablet 20 mg PO QID PRN abdominal pain 03/27/21 05/25/23 docusate sodium 100 mg capsule 100 mg PO BID PRN Constipation 03/27/21 05/25/23 (Colace) insulin aspart U-100 100 unit/mL 0 sliding scale dose subcut 03/27/21 (3 mL) subcutaneous pen (Novolog DIRECTED FlexPen U-100 Insulin aspart) levothyroxine 50 mcg tablet 50 mcg PO QAM 03/27/21 05/25/23 meclizine 12.5 mg tablet 12.5 mg PO TID PRN Dizziness 03/27/21 05/25/23 ropinirole 2 mg tablet 2 mg PO HS 09/20/21 05/25/23 potassium chloride 20 mEq 20 meq PO BID 07/14/22 05/25/23 tablet,extended release(part/cryst) metformin 500 mg tablet,extended 500 mg PO QAM 07/15/22 05/25/23 release 24 hr magnesium oxide 400 mg (241.3 mg 400 mg PO BID 08/16/22 05/25/23 magnesium) tablet acetaminophen 500 mg tablet 500 - 1,000 mg PO Q6H PRN Pain 03/05/23 05/25/23 apixaban 5 mg tablet (Eliquis) 5 mg PO BID 03/05/23 05/25/23 cholecalciferol (vitamin D3) 25 25 mcg PO QAM 03/05/23 05/25/23 mcg (1,000 unit) capsule (Vitamin D3) tramadol 50 mg tablet 50 mg PO TID PRN Pain 03/05/23 05/25/23 trazodone 100 mg tablet 100 mg PO HS 03/05/23 05/25/23 duloxetine 60 mg capsule,delayed 60 mg PO QAM 03/23/23 05/25/23 release duloxetine 30 mg capsule,delayed 30 mg PO QAM 05/25/23 05/25/23 release oxycodone 5 mg tablet 5 mg PO Q6H PRN Pain 05/25/23 05/25/23 tirzepatide 2.5 mg/0.5 mL 2.5 mg subcut WK 05/25/23 05/25/23 subcutaneous pen injector (Kevan) Previous Rx's Medication Instructions Recorded clonazepam 0.5 mg tablet 0.5 mg PO BID PRN anxiety #0 tabs 03/28/21 furosemide 40 mg tablet 60 mg PO BID #120 tabs 07/22/22 baclofen 10 mg tablet 10 mg PO BID PRN muscle spasm #30 03/11/23 tabs gabapentin 300 mg capsule 600 mg PO TID #30 caps 03/11/23 Results & Data (ED) Vital Signs Vital Signs - 24 hr 05/25/23 18:52 05/25/23 19:12 05/25/23 19:40 Temperature 36.3 C L Temperature Source Oral Pulse Rate 87 83 Pulse Rate from SpO2 Sensor Pulse Rhythm Regular Pulse Strength Normal Respiratory Rate 20 Respiratory Effort / Characteristics Respiratory Depth Normal Respiratory Pattern Regular Blood Pressure 177/85 H Blood Pressure Mean 115 Blood Pressure Position Sitting Pulse Oximetry 95 96 Oxygen Delivery Method Room Air Nasal Cannula Oxygen Flow Rate 3 Sepsis Recent Fever Within 48 Hours No Sepsis New/Unexplained Change in Mental Status N/A Sepsis Action Taken by Nursing No Action Required 05/25/23 20:38 05/25/23 19:02 05/25/23 19:09 Temperature Temperature Source Pulse Rate 89 86 Pulse Rate from SpO2 Sensor 90 87 Pulse Rhythm Pulse Strength Respiratory Rate 21 17 Respiratory Effort / Characteristics Non-Labored Respiratory Depth Normal Respiratory Pattern Regular Blood Pressure 151/76 H Blood Pressure Mean 101 Blood Pressure Position Pulse Oximetry 98 96 Oxygen Delivery Method Nasal Cannula Nasal Cannula Oxygen Flow Rate 3 3 Sepsis Recent Fever Within 48 Hours Sepsis New/Unexplained Change in Mental Status Sepsis Action Taken by Nursing 05/25/23 19:30 05/25/23 20:00 05/25/23 20:30 Temperature Temperature Source Pulse Rate 89 81 82 Pulse Rate from SpO2 Sensor 89 81 82 Pulse Rhythm Pulse Strength Respiratory Rate 21 23 18 Respiratory Effort / Characteristics Respiratory Depth Respiratory Pattern Blood Pressure 156/65 H 155/70 H 152/69 H Blood Pressure Mean 95 98 96 Blood Pressure Position Pulse Oximetry 97 95 95 Oxygen Delivery Method Nasal Cannula Oxygen Flow Rate 3 Sepsis Recent Fever Within 48 Hours Sepsis New/Unexplained Change in Mental Status Sepsis Action Taken by Nursing 05/25/23 21:00 Temperature Temperature Source Pulse Rate 85 Pulse Rate from SpO2 Sensor Pulse Rhythm Pulse Strength Respiratory Rate 15 Respiratory Effort / Characteristics Respiratory Depth Respiratory Pattern Blood Pressure Blood Pressure Mean Blood Pressure Position Pulse Oximetry Oxygen Delivery Method Oxygen Flow Rate Sepsis Recent Fever Within 48 Hours Sepsis New/Unexplained Change in Mental Status Sepsis Action Taken by Nursing Laboratory Data Attestation: I reviewed the patient's lab results. 05/25/23 19:05 05/25/23 19:05 Lab Results 05/25/23 05/25/23 05/25/23 Range/Units 18:56 19:05 19:05 WBC 12.21 H (4.8-10.8) K/ul RBC 4.63 (4.20-5.40) M/uL Hgb 13.7 (12.0-16.0) g/dl Hct 43.0 (37.0-47.0) % MCV 92.9 (80.0-100.0) fL MCH 29.6 (25.0-34.0) pg MCHC 31.9 L (32.0-36.0) g/dL RDW Std Deviation 48.6 H (36.4-46.3) fL RDW Coeff of Adolfo 14.3 (11.5-14.5) % Plt Count 288 (130-400) K/uL MPV 9.5 (9.4-12.4) fL Immature Gran % (Auto) 0.5 % Neut % (Auto) 72.5 % Lymph % (Auto) 17.4 % [place] % (Auto) 6.3 % Eos % (Auto) 2.9 % Baso % (Auto) 0.4 % Neut # (Auto) 8.85 H (1.40-6.50) K/uL Lymph # (Auto) 2.12 (1.20-3.40) K/uL [place] # (Auto) 0.77 H (0.11-0.59) K/uL Eos # (Auto) 0.36 (0.00-0.50) K/uL Baso # (Auto) 0.05 (0.00-0.20) K/uL Immature Gran # (Auto) 0.06 (0.01-0.20) K/uL Sodium 137 (136-145) mmol/L Potassium 4.2 (3.5-5.1) mmol/L Chloride 98 (98-107) mmol/L Carbon Dioxide 33 H (21-32) mmol/L Anion Gap 6 (3-11) BUN 42 H (6-23) mg/dl Creatinine 1.69 H (0.6-1.2) mg/dl Est Cr Clr Drug Dosing 46.0 ml/min Est GFR ( Amer) 35.5 ml/min Est GFR (Non-Af Amer) 30.7 ml/min BUN/Creatinine Ratio 24.9 H (10-20) Glucose 47 L* (70-99(Fasting)) mg/dl POC Glucose 52 L* (70-99) mg/dl Calcium 9.6 (8.6-10.3) mg/dl Phosphorus 3.9 (2.5-4.9) mg/dl Magnesium 1.9 (1.7-2.4) mg/dl Total Bilirubin 0.3 (0.2-1.0) mg/dl AST 17 (13-39) U/L ALT 12 (7-52) U/L Alkaline Phosphatase 101 (34-104) U/L Total Protein 7.3 (6.0-8.3) gm/dl Albumin 4.0 (3.4-5.0) gm/dl Globulin 3.3 (2.5-4.0) gm/dl Albumin/Globulin Ratio 1.2 (0.9-2) Lipase 19 (11-82) U/L TSH (0.300-4.500) uIu/ml Urine Color Urine Appearance (Clear) Urine pH (4.5-7.5) Ur Specific [place] (1.000-1.030) Urine Protein (Negative) Urine Glucose (UA) (Negative) Urine Ketones (Negative) Urine Blood (Negative) Urine Nitrite (Negative) Urine Bilirubin (Negative) Urine Urobilinogen (Negative) Ur Leukocyte Esterase (Negative) Urine WBC (Auto) (0-5) /hpf Urine RBC (Auto) (0-4) /hpf U Hyaline Cast (Auto) (0-5) /lpf U Epithel Cells (Auto) (0-5) /lpf Urine Bacteria (Auto) (Negative) 05/25/23 05/25/23 05/25/23 Range/Units 19:05 19:23 20:08 WBC (4.8-10.8) K/ul RBC (4.20-5.40) M/uL Hgb (12.0-16.0) g/dl Hct (37.0-47.0) % MCV (80.0-100.0) fL MCH (25.0-34.0) pg MCHC (32.0-36.0) g/dL RDW Std Deviation (36.4-46.3) fL RDW Coeff of Adolfo (11.5-14.5) % Plt Count (130-400) K/uL MPV (9.4-12.4) fL Immature Gran % (Auto) % Neut % (Auto) % Lymph % (Auto) % [place] % (Auto) % Eos % (Auto) % Baso % (Auto) % Neut # (Auto) (1.40-6.50) K/uL Lymph # (Auto) (1.20-3.40) K/uL [place] # (Auto) (0.11-0.59) K/uL Eos # (Auto) (0.00-0.50) K/uL Baso # (Auto) (0.00-0.20) K/uL Immature Gran # (Auto) (0.01-0.20) K/uL Sodium (136-145) mmol/L Potassium (3.5-5.1) mmol/L Chloride (98-107) mmol/L Carbon Dioxide (21-32) mmol/L Anion Gap (3-11) BUN (6-23) mg/dl Creatinine (0.6-1.2) mg/dl Est Cr Clr Drug Dosing ml/min Est GFR ( Amer) ml/min Est GFR (Non-Af Amer) ml/min BUN/Creatinine Ratio (10-20) Glucose (70-99(Fasting)) mg/dl POC Glucose 53 L* (70-99) mg/dl Calcium (8.6-10.3) mg/dl Phosphorus (2.5-4.9) mg/dl Magnesium (1.7-2.4) mg/dl Total Bilirubin (0.2-1.0) mg/dl AST (13-39) U/L ALT (7-52) U/L Alkaline Phosphatase (34-104) U/L Total Protein (6.0-8.3) gm/dl Albumin (3.4-5.0) gm/dl Globulin (2.5-4.0) gm/dl Albumin/Globulin Ratio (0.9-2) Lipase (11-82) U/L TSH 2.804 (0.300-4.500) uIu/ml Urine Color Yellow Urine Appearance Clear (Clear) Urine pH 7.0 (4.5-7.5) Ur Specific [place] 1.010 (1.000-1.030) Urine Protein Negative (Negative) Urine Glucose (UA) Negative (Negative) Urine Ketones Negative (Negative) Urine Blood Negative (Negative) Urine Nitrite Negative (Negative) Urine Bilirubin Negative (Negative) Urine Urobilinogen Negative (Negative) Ur Leukocyte Esterase 1+ H (Negative) Urine WBC (Auto) >30 H (0-5) /hpf Urine RBC (Auto) 0-4 (0-4) /hpf U Hyaline Cast (Auto) 0 (0-5) /lpf U Epithel Cells (Auto) 0-5 (0-5) /lpf Urine Bacteria (Auto) Negative (Negative) 08/30/23 Range/Units 21:06 WBC (4.8-10.8) K/ul RBC (4.20-5.40) M/uL Hgb (12.0-16.0) g/dl Hct (37.0-47.0) % MCV (80.0-100.0) fL MCH (25.0-34.0) pg MCHC (32.0-36.0) g/dL RDW Std Deviation (36.4-46.3) fL RDW Coeff of Adolfo (11.5-14.5) % Plt Count (130-400) K/uL MPV (9.4-12.4) fL Immature Gran % (Auto) % Neut % (Auto) % Lymph % (Auto) % [place] % (Auto) % Eos % (Auto) % Baso % (Auto) % Neut # (Auto) (1.40-6.50) K/uL Lymph # (Auto) (1.20-3.40) K/uL [place] # (Auto) (0.11-0.59) K/uL Eos # (Auto) (0.00-0.50) K/uL Baso # (Auto) (0.00-0.20) K/uL Immature Gran # (Auto) (0.01-0.20) K/uL Sodium (136-145) mmol/L Potassium (3.5-5.1) mmol/L Chloride (98-107) mmol/L Carbon Dioxide (21-32) mmol/L Anion Gap (3-11) BUN (6-23) mg/dl Creatinine (0.6-1.2) mg/dl Est Cr Clr Drug Dosing ml/min Est GFR ( Amer) ml/min Est GFR (Non-Af Amer) ml/min BUN/Creatinine Ratio (10-20) Glucose (70-99(Fasting)) mg/dl POC Glucose 89 (70-99) mg/dl Calcium (8.6-10.3) mg/dl Phosphorus (2.5-4.9) mg/dl Magnesium (1.7-2.4) mg/dl Total Bilirubin (0.2-1.0) mg/dl AST (13-39) U/L ALT (7-52) U/L Alkaline Phosphatase (34-104) U/L Total Protein (6.0-8.3) gm/dl Albumin (3.4-5.0) gm/dl Globulin (2.5-4.0) gm/dl Albumin/Globulin Ratio (0.9-2) Lipase (11-82) U/L TSH (0.300-4.500) uIu/ml Urine Color Urine Appearance (Clear) Urine pH (4.5-7.5) Ur Specific [place] (1.000-1.030) Urine Protein (Negative) Urine Glucose (UA) (Negative) Urine Ketones (Negative) Urine Blood (Negative) Urine Nitrite (Negative) Urine Bilirubin (Negative) Urine Urobilinogen (Negative) Ur Leukocyte Esterase (Negative) Urine WBC (Auto) (0-5) /hpf Urine RBC (Auto) (0-4) /hpf U Hyaline Cast (Auto) (0-5) /lpf U Epithel Cells (Auto) (0-5) /lpf Urine Bacteria (Auto) (Negative) Administered Medications Apixaban (Apixaban 5 Mg Tablet) 5 mg PO BID ROBERT Stop: 06/25/23 00:38 Last Admin: 05/26/23 01:47 Dose: 5 mg Documented By: MARTHA Gabapentin (Gabapentin 300 Mg Cap) 600 mg PO TID [facility] Stop: 06/25/23 00:38 Last Admin: 05/26/23 01:46 Dose: 600 mg Documented By: MARHTA Dextrose/Sodium Chloride (D5w And Nss) 1,000 mls @ 100 mls/hr IV .Q10H ROBERT Stop: 06/24/23 21:29 Last Infusion: 05/26/23 00:38 Dose: 100 mls/hr Documented By: Admin: 05/25/23 21:30 Dose: 125 mls/hr Documented By: MARTHA Oxycodone HCl (Oxycodone Hcl Ir 5 Mg Tab (Immediate Release)) 5 mg PO Q6H PRN PRN Reason: Pain Stop: 06/09/23 00:38 Last Admin: 05/26/23 01:46 Dose: 5 mg Documented By: MARTHA Ropinirole HCl (Ropinirole Hcl 2 Mg Tablet) 2 mg PO HS ROBERT Stop: 06/25/23 00:38 Last Admin: 05/26/23 01:47 Dose: 2 mg Documented By: MARTHA Trazodone HCl (Trazodone Hcl 100 Mg Tab) 100 mg PO HS ROBERT Stop: 06/25/23 00:38 Last Admin: 05/26/23 01:47 Dose: 100 mg Documented By: MARTHA Discontinued Medications Dextrose (Dextrose 50% 50 Ml Syringe) Confirm Administered Dose 50 ml IV .STK- MED ONE Stop: 05/25/23 20:11 Last Admin: 05/25/23 20:13 Dose: 50 ml Documented By: MARTHA Dextrose (Dextrose 50% 50 Ml Syringe) 50 ml IV NOW ONE Stop: 05/25/23 20:11 Last Admin: 05/25/23 20:14 Dose: Not Given Documented By: MARTHA Sodium Chloride (Nss) 500 mls @ 999 mls/hr IV .Q31M ONE Stop: 05/25/23 19:40 Last Infusion: 05/25/23 20:51 Dose: 0 mls/hr Documented By: Admin: 05/25/23 20:15 Dose: 999 mls/hr Documented By: MARTHA Discharge Plan Visit Data Chief Complaint: Hypoglycemia ED Provider: Regino Julien Discharge Problem: Hypoglycemia, Diabetes mellitus, type II, Dizziness Patient Disposition: Admitted As Inpatient Discharge Instructions Interventions: ED Discharge Assessment Last Done: 05/26/23 00:39
[2023-05-25] MEDS ORDERED: SODIUM CHLORIDE 0.9% 500 ML IV ONE (19:10)
[2023-05-25 19:34] LABS: Basophils # (auto) 0.05 K/uL (0.00-0.20); Basophils % (auto) 0.4 %; Eosinophils # (auto) 0.36 K/uL (0.00-0.50); Eosinophils % (auto) 2.9 %; Hemoglobin 13.7 g/dl (12.0-16.0); Immature Granulocytes # (auto) 0.06 K/uL (0.01-0.20); Immature Granulocytes % (auto) 0.5 %; Lymphocytes # (auto) 2.12 K/uL (1.20-3.40); Lymphocytes % (auto) 17.4 %; Mean Corpuscular Hemoglobin 29.6 pg (25.0-34.0); Mean Corpuscular Hgb Conc 31.9 g/dL (32.0-36.0); Mean Corpuscular Volume 92.9 fL (80.0-100.0); Mean Platelet Volume 9.5 fL (9.4-12.4); Monocytes # (auto) 0.77 K/uL (0.11-0.59); Monocytes % (auto) 6.3 %; Neutrophils # (auto) 8.85 K/uL (1.40-6.50); Neutrophils % (auto) 72.5 %; Platelet Count 288 K/uL (130-400); RDW Coefficient of Variation 14.3 % (11.5-14.5); RDW Standard Deviation 48.6 fL (36.4-46.3); Red Blood Count 4.63 M/uL (4.20-5.40); White Blood Count 12.21 K/ul (4.8-10.8)
[2023-05-25 19:50] LABS: Albumin Globulin Ratio 1.2 (0.9-2); BUN Creatinine Ratio 24.9 (10-20); Bilirubin,Total 0.3 mg/dl (0.2-1.0); Calcium 9.6 mg/dl (8.6-10.3); Est GFR (African American) 35.5 ml/min; Est GFR (Non-African American) 30.7 ml/min; Globulin 3.3 gm/dl (2.5-4.0); Magnesium 1.9 mg/dl (1.7-2.4); Phosphorus 3.9 mg/dl (2.5-4.9); Potassium 4.2 mmol/L (3.5-5.1); Total Protein 7.3 gm/dl (6.0-8.3)
[2023-05-25 19:53] LABS: Appearance Urine Clear (Clear); Bacteria Urine Automated Negative (Negative); Bilirubin Urine Negative (Negative); Blood Urine Negative (Negative); Cast Urine Automated 0 /lpf (0-5); Color Urine Yellow; Epithelial Cell Urine Auto 0-5 /lpf (0-5); Glucose Urine UA Negative (Negative); Ketones Urine Negative (Negative); Leukocyte Esterase Urine 1+ (Negative); Nitrite Urine Negative (Negative); Protein Urine Negative (Negative); RBC Urine Automated 0-4 /hpf (0-4); Urobilinogen Urine Negative (Negative); WBC Urine Automated >30 /hpf (0-5)
[2023-05-25] MEDS ORDERED: DEXTROSE 50% 50 ML SYRINGE IV ONE ×2 (20:10)
[2023-05-25] MEDS: D5W AND NSS 1,000 ML IV SCH (21:30)
--- NOTE | 2023-05-25 21:32 | History & Physical Report ---
Date of Service May 25, 2023 Assessment & Plan (1) Hypoglycemia: Plan: 68-year-old female with past medical history significant for type 2 diabetes, chronic hypoxic respiratory failure on 3 L oxygen, hyperlipidemia, postsurgical hypothyroidism, hyperparathyroidism secondary to renal disease, chronic kidney disease stage IIIb, interstitial lung disease, obstructive sleep apnea on CPAP, chronic diastolic CHF, history of DVT and PE s/p IVC filter, history of heparin- induced thrombocytopenia, venous insufficiency, hypertension, right carotid artery stenosis, morbid obesity, GERD, fibromyalgia, restless leg syndrome, osteoarthritis, lumbar radiculopathy, depression, statin intolerance, abnormality of gait ambulates with walker, anxiety, presents with hypoglycemic episodes. Hypoglycemia Seems since she was started on Mounjaro Seems her insulin dose was reduced twice but still she is having severe hypoglycemic episodes . Sugars are coming down even after giving oral glucose and amp of dextrose We will hold all diabetic medications for now Start on D5 normal saline at 100 mill per hour We will check her sugars every hour for now. Glycemic pharmacy consult Chronic hypoxic respiratory failure on home oxygen Interstitial lung disease Obstructive sleep apnea on CPAP nightly History of DVT and PE S/p IVC filter On Eliquis Chronic diastolic CHF On Lasix and potassium supplements We will monitor for any volume overload she is getting fluids now Hypothyroidism On Synthyroid TSH is okay Chronic kidney stage III Presented with creatinine of 1.6 with seems at baseline We will follow the labs History of hypertension Currently only on diuretics Will monitor Depression and anxiety On duloxetine and trazodone and clonazepam as needed Restless legs syndrome On ropinirole DVT prophylaxis on Eliquis Disposition observation med/telemetry Full code History of Present Illness Chief Complaint: Hypoglycemia Primary Care Provider: Galdino Andujar DO 68-year-old female with past medical history significant for type 2 diabetes, chronic hypoxic respiratory failure on 3 L oxygen, hyperlipidemia, postsurgical hypothyroidism, hyperparathyroidism secondary to renal disease, chronic kidney disease stage IIIb, interstitial lung disease, obstructive sleep apnea on CPAP, chronic diastolic CHF, history of DVT and PE s/p IVC filter, history of heparin- induced thrombocytopenia, venous insufficiency, hypertension, right carotid artery stenosis, morbid obesity, GERD, fibromyalgia, restless leg syndrome, osteoarthritis, lumbar radiculopathy, depression, statin intolerance, abnormality of gait ambulates with walker, anxiety, presents with hypoglycemic episodes. Patient was recently started on Mounjaro since then she is having hypoglycemic episodes. Patient states her insulin dose was reduced twice. But but today her Dexcom could not read blood sugars. She was feeling lightheaded almost passed out and blurred visions and came to the ER. Oral glucose was given by EMS but by the time she came to the ER again the sugars dropped to 50s. She was given additional oral intake which improved her sugars to 80s. But the blood sugars again declined to 50 so amp of D50 was given and we were called for admission. Looks like her sugars are again coming down. Patient currently resting comfortably and hemodynamically stable. Has some mild headache. Has some blurred visions. Denies any earaches or runny nose or sore throat. No cough. No fevers. Appetite is okay. Denies any chest pain or shortness of breath. No nausea or vomiting. No abdominal pain. Somewhat constipated. Normal bladder movements. Complains of some cramps in right leg. Allergies Allergy/AdvReac Type Severity Reaction Status Date / Time morphine Allergy Severe VIOLENT Verified 05/25/23 19:43 REACTION-"ALMOST " SWELLING dapagliflozin [From Farxiga] Allergy Intermediate YEAST Verified 05/25/23 19:43 INFECTIONS tetanus toxoid, adsorbed Allergy Intermediate PASSED OUT Verified 05/25/23 19:43 AND GOT SICK WHEN A CHILD bupropion [From Wellbutrin] AdvReac Intermediate Recurrent Verified 05/25/23 19:43 falls as per patient codeine AdvReac Intermediate Hallucinati Verified 05/25/23 19:43 ons empagliflozin AdvReac Intermediate YEAST Verified 05/25/23 19:43 [From Jardiance] INFECTIONS heparin AdvReac Intermediate HIT; FLUID Verified 05/25/23 19:43 IN LUNGS hydrocodone [From Vicodin] AdvReac Intermediate sleepiness Verified 05/25/23 19:43 Home Medications Medication Instructions Recorded Confirmed Type levothyroxine 200 mcg tablet 200 mcg PO QAM 06/09/18 05/25/23 History omeprazole 20 mg capsule,delayed 20 mg PO QAM 06/09/18 05/25/23 History release insulin degludec 100 unit/mL (3 50 unit subcut HS 11/24/20 05/25/23 History mL) subcutaneous pen (Tresiba FlexTouch U-100 insulin) dicyclomine 20 mg tablet 20 mg PO QID PRN abdominal pain 03/27/21 05/25/23 History docusate sodium 100 mg capsule 100 mg PO BID PRN Constipation 03/27/21 05/25/23 History (Colace) insulin aspart U-100 100 unit/mL 0 sliding scale dose subcut 03/27/21 05/25/23 History (3 mL) subcutaneous pen (Novolog DIRECTED FlexPen U-100 Insulin aspart) levothyroxine 50 mcg tablet 50 mcg PO QAM 03/27/21 05/25/23 History meclizine 12.5 mg tablet 12.5 mg PO TID PRN Dizziness 03/27/21 05/25/23 History clonazepam 0.5 mg tablet 0.5 mg PO BID PRN anxiety #0 tabs 03/28/21 05/25/23 Rx ropinirole 2 mg tablet 2 mg PO HS 09/20/21 05/25/23 History potassium chloride 20 mEq 20 meq PO BID 07/14/22 05/25/23 History tablet,extended release(part/cryst) metformin 500 mg tablet,extended 500 mg PO QAM 07/15/22 05/25/23 History release 24 hr furosemide 40 mg tablet 60 mg PO BID #120 tabs 07/22/22 05/25/23 Rx magnesium oxide 400 mg (241.3 mg 400 mg PO BID 08/16/22 05/25/23 History magnesium) tablet acetaminophen 500 mg tablet 500 - 1,000 mg PO Q6H PRN Pain 03/05/23 05/25/23 History apixaban 5 mg tablet (Eliquis) 5 mg PO BID 03/05/23 05/25/23 History cholecalciferol (vitamin D3) 25 25 mcg PO QAM 03/05/23 05/25/23 History mcg (1,000 unit) capsule (Vitamin D3) tramadol 50 mg tablet 50 mg PO TID PRN Pain 03/05/23 05/25/23 History trazodone 100 mg tablet 100 mg PO HS 03/05/23 05/25/23 History baclofen 10 mg tablet 10 mg PO BID PRN muscle spasm #30 03/11/23 05/25/23 Rx tabs gabapentin 300 mg capsule 600 mg PO TID #30 caps 03/11/23 05/25/23 Rx duloxetine 60 mg capsule,delayed 60 mg PO QAM 03/23/23 05/25/23 History release duloxetine 30 mg capsule,delayed 30 mg PO QAM 05/25/23 05/25/23 History release oxycodone 5 mg tablet 5 mg PO Q6H PRN Pain 05/25/23 05/25/23 History tirzepatide 2.5 mg/0.5 mL 2.5 mg subcut WK 05/25/23 05/25/23 History subcutaneous pen injector (Mounjaro) Past Med/Surg History Medical History Acute metabolic encephalopathy Carotid stenosis, right CHF (congestive heart failure) follows with Dr. Woodall CKD (chronic kidney disease), stage III follows with [facility] Depression with anxiety Diabetes mellitus, type II DVT (deep venous thrombosis) at present behind right knee, on Eliquis for this DVT prophylaxis Fibromyalgia Frequent UTI none at present that pt is aware of GERD (gastroesophageal reflux disease) History of DVT (deep vein thrombosis) 2008 due to being in ICU [place] due to pneumonia History of pulmonary embolism 2008 s/p zoraida filter HIT (heparin-induced thrombocytopenia) 2009, [facility] then life flight to [place] > resolved HLD (hyperlipidemia) HTN (hypertension) Hypothyroidism Lower extremity pain, bilateral Lumbago Lumbago with sciatica Morbid obesity Nausea and vomiting after administration of anesthetic agent Neuropathy bilat feet On home oxygen therapy 2-4 continuous ELISSA on CPAP Presence of IVC filter 2008 RLS (restless legs syndrome) Subclavian artery stenosis follows with Dr. Woodall with [facility] Surgical History History of arthroscopy left ankle History of cholecystectomy History of colon resection secondary to R colon perforation, resected treated with colostomy and eventual reversal in 2008, Dr. Lerma History of colonoscopy History of incisional hernia repair History of thyroidectomy, total 2010 History of tooth extraction History of total right knee replacement History of tracheostomy 2008, secondary to acute resp failure secondary to pneumonia, since reversed in 2010 Family History Father , age 74 Lung cancer Mother , age 45 Cirrhosis Social History Smoking Status: Former smoker Tobacco Type: Cigarettes Cigarettes Per Day: 15 pack year hx; Second Hand Exposure: No; Do You Dip or Chew Tobacco: No; Tobacco Cessation Education Requested by Patient: No Hx Alcohol Use: No Hx Substance Use: No Preferred Language: Bahraini Communication Ability: Effective Veterinary Virologist Required: No Beliefs That Will Affect Care: None marital status: Single Current Living Situation: Alone How many Children do You have: 0 Other Information That Helps Us Care for You: No Feels Safe at Home: Yes Safety Concerns: Feels Safe At This Time Assistive Devices: BiPap and Oxygen - Continuous Review of Systems Review of Systems: All systems reviewed & are unremarkable except as noted in HPI & below Physical Exam Physical Exam: General- Not in distress Head- atraumatic Eyes- PERRL, EOMI, ENT- oropharynx clear Neck- supple, no JVD, no adenopathy, no thyromegaly; carotids +2/2, no bruits appreciated Lungs- clear to auscultation , no wheezing or crackles Heart- regular rhythm; no murmur, no gallop, Abdomen- normal bowel sounds, soft, nontender, no masses no distension Extremities- mild pretibial edema present , no erythema seen Neuro- alert, oriented x 3; PERRL, EOMI; no facial palsy; no dysarthria; non focal. Skin- warm & dry Results & Data Results & Data Vital Signs (Past 12 Hours) Vital Signs Temp Pulse Resp BP Pulse Ox O2 Del Method O2 Flow Rate 05/25/23 19:40 83 05/25/23 19:12 96 Nasal Cannula 3 05/25/23 18:52 36.3 C L 87 20 177/85 H 95 Room Air Diagnostic Findings Laboratory Results WBC 12.21 K/ul (4.8-10.8) H 05/25/23 19:05 RBC 4.63 M/uL (4.20-5.40) 05/25/23 19:05 Hgb 13.7 g/dl (12.0-16.0) 05/25/23 19:05 Hct 43.0 % (37.0-47.0) 05/25/23 19:05 MCV 92.9 fL (80.0-100.0) 05/25/23 19:05 MCH 29.6 pg (25.0-34.0) 05/25/23 19:05 MCHC 31.9 g/dL (32.0-36.0) L 05/25/23 19:05 RDW Std Deviation 48.6 fL (36.4-46.3) H 05/25/23 19:05 RDW Coeff of Adolfo 14.3 % (11.5-14.5) 05/25/23 19:05 Plt Count 288 K/uL (130-400) 05/25/23 19:05 MPV 9.5 fL (9.4-12.4) 05/25/23 19:05 Immature Gran % (Auto) 0.5 % 05/25/23 19:05 Neut % (Auto) 72.5 % 05/25/23 19:05 Lymph % (Auto) 17.4 % 05/25/23 19:05 [place] % (Auto) 6.3 % 05/25/23 19:05 Eos % (Auto) 2.9 % 05/25/23 19:05 Baso % (Auto) 0.4 % 05/25/23 19:05 Neut # (Auto) 8.85 K/uL (1.40-6.50) H 05/25/23 19:05 Lymph # (Auto) 2.12 K/uL (1.20-3.40) 05/25/23 19:05 [place] # (Auto) 0.77 K/uL (0.11-0.59) H 05/25/23 19:05 Eos # (Auto) 0.36 K/uL (0.00-0.50) 05/25/23 19:05 Baso # (Auto) 0.05 K/uL (0.00-0.20) 05/25/23 19:05 Immature Gran # (Auto) 0.06 K/uL (0.01-0.20) 05/25/23 19:05 Sodium 137 mmol/L (136-145) 05/25/23 19:05 Potassium 4.2 mmol/L (3.5-5.1) 05/25/23 19:05 Chloride 98 mmol/L (98-107) 05/25/23 19:05 Carbon Dioxide 33 mmol/L (21-32) H 05/25/23 19:05 Anion Gap 6 (3-11) 05/25/23 19:05 BUN 42 mg/dl (6-23) H 05/25/23 19:05 Creatinine 1.69 mg/dl (0.6-1.2) H 05/25/23 19:05 Est Cr Clr Drug Dosing 46.0 ml/min 05/25/23 19:05 Est GFR ( Amer) 35.5 ml/min 05/25/23 19:05 Est GFR (Non-Af Amer) 30.7 ml/min 05/25/23 19:05 BUN/Creatinine Ratio 24.9 (10-20) H 05/25/23 19:05 Glucose 47 mg/dl (70-99(Fasting)) L* 05/25/23 19:05 POC Glucose 89 mg/dl (70-99) 05/25/23 21:06 Calcium 9.6 mg/dl (8.6-10.3) 05/25/23 19:05 Phosphorus 3.9 mg/dl (2.5-4.9) 05/25/23 19:05 Magnesium 1.9 mg/dl (1.7-2.4) 05/25/23 19:05 Total Bilirubin 0.3 mg/dl (0.2-1.0) 05/25/23 19:05 AST 17 U/L (13-39) 05/25/23 19:05 ALT 12 U/L (7-52) 05/25/23 19:05 Alkaline Phosphatase 101 U/L (34-104) 05/25/23 19:05 Total Protein 7.3 gm/dl (6.0-8.3) 05/25/23 19:05 Albumin 4.0 gm/dl (3.4-5.0) 05/25/23 19:05 Globulin 3.3 gm/dl (2.5-4.0) 05/25/23 19:05 Albumin/Globulin Ratio 1.2 (0.9-2) 05/25/23 19:05 Lipase 19 U/L (11-82) 05/25/23 19:05 TSH 2.804 uIu/ml (0.300-4.500) 05/25/23 19:05 Urine Color Yellow 05/25/23:23 Urine Appearance Clear (Clear) 05/25/23 19:23 Urine pH 7.0 (4.5-7.5) 05/25/23 19:23 Ur Specific [place] 1.010 (1.000-1.030) 05/25/23 19:23 Urine Protein Negative (Negative) 05/25/23 19:23 Urine Glucose (UA) Negative (Negative) 05/25/23 19:23 Urine Ketones Negative (Negative) 05/25/23 19:23 Urine Blood Negative (Negative) 05/25/23 19:23 Urine Nitrite Negative (Negative) 05/25/23 19:23 Urine Bilirubin Negative (Negative) 05/25/23 19:23 Urine Urobilinogen Negative (Negative) 05/25/23 19:23 Ur Leukocyte Esterase 1+ (Negative) H 05/25/23 19:23 Urine WBC (Auto) >30 /hpf (0-5) H 05/25/23 19:23 Urine RBC (Auto) 0-4 /hpf (0-4) 05/25/23 19:23 U Hyaline Cast (Auto) 0 /lpf (0-5) 05/25/23 19:23 U Epithel Cells (Auto) 0-5 /lpf (0-5) 05/25/23 19:23 Urine Bacteria (Auto) Negative (Negative) 05/25/23 19:23 ECG Additional Comments: ECG normal sinus rhythm at a rate of 84. No acute ST changes seen Code Status & VTE Plan VTE Prophylaxis Plan VTE Prophylaxis will be ordered: Yes
[2023-05-26] MEDS ORDERED: GLUCOSE 10 TAB/TUBE PO PRN (00:39)
[2023-05-26] MEDS ORDERED: BACLOFEN 10 MG TAB PO PRN (00:39)
[2023-05-26] MEDS ORDERED: POLYETHYLENE (MIRALAX) 17 GM PACK PO PRN (00:39)
[2023-05-26] MEDS ORDERED: NITROGLYCERIN SL 0.4 MG/TAB TAB SL PRN (00:39)
[2023-05-26] MEDS ORDERED: MECLIZINE 12.5 MG TAB PO PRN (00:39)
[2023-05-26] MEDS ORDERED: CARBOHYDRATES FOR HYPOGLYCEMIA PO PRN (00:39)
[2023-05-26] MEDS ORDERED: DICYCLOMINE HCL 20 MG TAB PO PRN (00:39)
[2023-05-26] MEDS ORDERED: DEXTROSE 50% 50 ML SYRINGE IV PRN (00:39)
[2023-05-26] MEDS ORDERED: DOCUSATE SODIUM 100 MG CAP PO PRN (00:39)
[2023-05-26] MEDS ORDERED: GLUCOSE 40% GEL 15 GM TUBE PO PRN (00:39)
[2023-05-26] MEDS ORDERED: PHARMACY GLYCEMIC MGMT CONSULT PRN (00:39)
[2023-05-26] MEDS ORDERED: GLUCAGON FOR INJ 1 MG VIAL SQ PRN (00:39)
[2023-05-26] MEDS: oxyCODONE HCL IR 5 MG TAB (IMMEDIATE RELEASE) PO PRN ×2 (01:46→20:36)
[2023-05-26] MEDS: GABAPENTIN 300 MG CAP PO SCH ×4 (01:46→20:34)
[2023-05-26] MEDS: traZODone HCL 100 MG TAB PO SCH ×2 (01:47→20:36)
[2023-05-26] MEDS: rOPINIRole HCL 2 MG TABLET PO SCH ×2 (01:47→20:36)
[2023-05-26] MEDS: APIXABAN 5 MG TABLET PO SCH ×3 (01:47→20:34)
[2023-05-26 04:56] LABS: Basophils # (auto) 0.04 K/uL (0.00-0.20); Basophils % (auto) 0.4 %; Eosinophils # (auto) 0.32 K/uL (0.00-0.50); Hematocrit (blood only) 41.3 % (37.0-47.0); Hemoglobin 12.6 g/dl (12.0-16.0); Immature Granulocytes # (auto) 0.05 K/uL (0.01-0.20); Immature Granulocytes % (auto) 0.5 %; Lymphocytes # (auto) 2.43 K/uL (1.20-3.40); Lymphocytes % (auto) 22.9 %; Mean Corpuscular Hemoglobin 29.1 pg (25.0-34.0); Mean Corpuscular Hgb Conc 30.5 g/dL (32.0-36.0); Mean Corpuscular Volume 95.4 fL (80.0-100.0); Mean Platelet Volume 9.2 fL (9.4-12.4); Monocytes # (auto) 0.77 K/uL (0.11-0.59); Monocytes % (auto) 7.3 %; Neutrophils # (auto) 6.99 K/uL (1.40-6.50); Neutrophils % (auto) 65.9 %; Platelet Count 230 K/uL (130-400); RDW Coefficient of Variation 14.2 % (11.5-14.5); RDW Standard Deviation 50.1 fL (36.4-46.3); Red Blood Count 4.33 M/uL (4.20-5.40)
[2023-05-26 05:19] LABS: Calcium 8.9 mg/dl (8.6-10.3); Magnesium 1.9 mg/dl (1.7-2.4); Potassium 3.9 mmol/L (3.5-5.1)
[2023-05-26 05:25] LABS: BUN Creatinine Ratio 24.3 (10-20); Creatinine Clr Calc Pharmacy 51.2 ml/min; Est GFR (African American) 40.4 ml/min; Est GFR (Non-African American) 34.9 ml/min
[2023-05-26 07:01] LABS: Estimated Average Glucose 148 mg/dl; Hemoglobin A1C 6.8 % (4.5-5.6)
[2023-05-26] MEDS: LEVOTHYROXINE SODIUM 200 MCG TABLET PO SCH (07:30)
[2023-05-26] MEDS: LEVOTHYROXINE SODIUM 50 MCG TABLET PO SCH (07:30)
[2023-05-26] MEDS: D5W AND NSS 1,000 ML IV SCH (08:21)
[2023-05-26] MEDS: INSULIN ASPART PER UNIT CHARGE SC SCH ×4 (08:45→20:37)
[2023-05-26] MEDS: FUROSEMIDE 20 MG TAB PO SCH ×2 (08:53→17:06)
[2023-05-26] MEDS: DULoxetine HCL 30 MG CAP PO SCH (08:53)
[2023-05-26] MEDS: DULoxetine HCL 60 MG CAP PO SCH (08:53)
[2023-05-26] MEDS: CHOLECALCIFEROL 1,000 UNITS 25 MCG TAB PO SCH (08:53)
[2023-05-26] MEDS: PANTOprazole 40 MG TAB PO SCH (08:53)
[2023-05-26] MEDS: POTASSIUM CHLORIDE CRTAB 20 MEQ TABCR PO SCH ×2 (08:54→20:42)
[2023-05-26] MEDS: MAGNESIUM OXIDE 400 MG TAB PO SCH ×2 (08:54→20:35)
[2023-05-26] MEDS: cefTRIAXone SODIUM 2,000 MG in DEXTROSE 5% 50 ML IV SCH (08:59)
[2023-05-26] MEDS: ACETAMINOPHEN 325 MG TAB PO PRN (14:58)
--- NOTE | 2023-05-26 15:01 | Pharmacy Report ---
Pharmacy Glycemic Short Note 2 - Date of Service May 26, 2023 - Glycemic Short BSG Results (Last 24 hours): 05/25/23 05/25/23 05/25/23 18:56 19:05 20:08 Glucose 47 L* POC Glucose 52 L* 53 L* 05/25/23 05/25/23 05/26/23 21:06 22:33 02:35 Glucose POC Glucose 89 94 127 H 05/26/23 05/26/23 05/26/23 03:33 04:49 05:08 Glucose 128 H POC Glucose 159 H 123 H 05/26/23 05/26/23 05/26/23 07:21 08:24 10:24 Glucose POC Glucose 120 H 115 H 133 H 05/26/23 05/26/23 13:33 14:51 Glucose POC Glucose 148 H 167 H OUTPATIENT ANTIDIABETIC REGIMEN: * Tresiba 50 units SQ HS * Novolog 20/20/3- units with meals + sliding scale * Mounjoro 2.5 mg SQ on Sundays * Metformin 500 mg PO BID ASSESSMENT: * Ms Camp is a 68 y/o F with a PMH of T2DM who presents with hypoglycemia. * Patient's BSGs on admission were 52/53 and she received an amp of D50. Patient is currently on D5 @ 100 mL/hr. * BSGs trended upwards throughout the day and until > 140 mg/dL x 2 in the afternoon. Discussed with provider and D5 will be discontinued. * During previous hospitalizations, patient received Lantus 25 units SQ BID plus Novolog CF 15/ CR 5. Blood sugars were excellent if not slightly high. * Will start with 25 units of Lantus tonight and then re-evaluate tomorrow. * Novolog slightly looser than previously. PLAN FOR INPATIENT GLYCEMIC CONTROL: * Hold outpatient oral diabetes medications * Basal insulin * Lantus 25 units SQ HS x 1 then re-evaluate * Bolus insulin * NovoLog per scale ACHS or Q6hrs while NPO * Goal Range: Low 110 mg/dL - High 140 mg/dL * Correction Factor: 20 mg/dL/unit * Nutritional / Prandial insulin per carb ratio of 1 unit per 6 grams CHO consumed
--- NOTE | 2023-05-26 15:36 | Hospitalist Progress Note ---
Date of Service May 26, 2023 Assessment & Plan (1) Hypoglycemia: Plan: 68-year-old female with past medical history significant for type 2 diabetes, chronic hypoxic respiratory failure on 3 L oxygen, hyperlipidemia, postsurgical hypothyroidism, hyperparathyroidism secondary to renal disease, chronic kidney disease stage IIIb, interstitial lung disease, obstructive sleep apnea on CPAP, chronic diastolic CHF, history of DVT and PE s/p IVC filter, history of heparin- induced thrombocytopenia, venous insufficiency, hypertension, right carotid artery stenosis, morbid obesity, GERD, fibromyalgia, restless leg syndrome, osteoarthritis, lumbar radiculopathy, depression, statin intolerance, abnormality of gait ambulates with walker, anxiety, presents with hypoglycemic episodes. Hypoglycemia DMII, on Mounjaro weekly and daily metformin, insulin Appears her home insulin dose was reduced twice but hypoglycemic episodes persist Glucose with persistent drops even after giving oral glucose and amp of dextrose Hold all diabetic medications for now Was placed on D5 normal saline, has since been discontinued as glucose levels were between 140-160 Holding q1h glucose checks Glycemic pharmacy consult- appreciate recs Complicated UTI Pt notes dysuria UA suggestive of infection Urine Cx growing gram negative bacilli On Rocephin, narrow based on urine culture sensitivities. Chronic hypoxic respiratory failure on home oxygen Interstitial lung disease Obstructive sleep apnea on CPAP nightly States she uses 3L of oxygen at baseline History of DVT and PE S/p IVC filter On Eliquis Chronic diastolic CHF On Lasix and potassium supplements Fluids discontinued Hypothyroidism On Synthyroid TSH stable Chronic kidney stage III Presented with creatinine of 1.6, at baseline Stable History of hypertension Currently only on diuretics Will monitor Depression and anxiety On duloxetine, trazodone and clonazepam as needed Restless legs syndrome On ropinirole DVT prophylaxis on Eliquis Full code Admission and Anticipated Discharge Date Admission Date: May 25, 2023 Subjective Pt seen this AM resting comfortably in bed in the ED. Notes that she had been having episodes of dysuria. Still present. Denied dizziness or syncopal episodes. No N/V. Review of Systems Review of Systems: All systems reviewed & are unremarkable except as noted in Subjective Physical Exam Physical Exam: General: Alert, oriented. No acute distress, laying in bed Psych: Appropriate mood and affect HEENT: NC/AT, NC in nares CV: RRR Resp: no increased effort of breathing. Abdomen: Soft, diffusely tender Extremities: trace edema in lower extremities bilaterally. Results & Data Results & Data Vital Signs (Past 12 Hours) Vital Signs Pulse Pulse Resp BP BP Pulse Ox O2 Del Method 05/26/23 12:45 85 22 98 Nasal Cannula 05/26/23 12:42 91 H 15 05/26/23 12:00 73 19 05/26/23 11:00 72 16 05/26/23 10:00 80 23 98 05/26/23 09:00 80 12 05/26/23 08:00 76 16 05/26/23 07:00 80 23 97 05/26/23 07:00 164/67 H 05/26/23 12:57 98 Nasal Cannula 05/26/23 07:30 79 18 164/67 H 97 Nasal Cannula 05/26/23 07:00 75 05/26/23 06:00 75 15 172/66 H 95 Nasal Cannula 05/26/23 05:00 73 15 155/77 H 95 Nasal Cannula 05/26/23 04:00 74 16 140/60 98 Nasal Cannula 05/26/23 03:44 75 16 96 05/26/23 05:12 16 Nasal Cannula 05/26/23 02:00 77 17 133/56 L 96 Nasal Cannula 05/26/23 01:30 76 15 153/74 H 98 Nasal Cannula 05/26/23 01:00 75 17 158/83 H 96 Nasal Cannula 05/26/23 02:37 Nasal Cannula O2 Flow Rate 05/26/23 12:45 05/26/23 12:42 05/26/23 12:00 05/26/23 11:00 05/26/23 10:00 05/26/23 09:00 05/26/23 08:00 05/26/23 07:00 05/26/23 07:00 05/26/23 12:57 2 05/26/23 07:30 2 05/26/23 07:00 05/26/23 06:00 3 05/26/23 05:00 3 05/26/23 04:00 3 05/26/23 03:44 05/26/23 05:12 3 05/26/23 02:00 3 05/26/23 01:30 3 05/26/23 01:00 3 05/26/23 02:37 3
[2023-05-26] MEDS: clonazePAM 0.5 MG TAB PO PRN (20:36)
[2023-05-26] MEDS: LANTUS PER UNIT CHARGE SC SCH (20:37)
[2023-05-27] MEDS: traMADol HCL 50 MG TABLET PO PRN ×2 (00:34→09:55)
[2023-05-27] MEDS: ONDANSETRON INJ 2 MG/ML 2 ML VIAL IV PRN ×2 (00:34→13:13)
[2023-05-27] MEDS: oxyCODONE HCL IR 5 MG TAB (IMMEDIATE RELEASE) PO PRN (03:06)
[2023-05-27] MEDS: ACETAMINOPHEN 325 MG TAB PO PRN ×2 (05:02→16:52)
[2023-05-27] MEDS: LEVOTHYROXINE SODIUM 50 MCG TABLET PO SCH (06:23)
[2023-05-27] MEDS: LEVOTHYROXINE SODIUM 200 MCG TABLET PO SCH (06:23)
[2023-05-27] MEDS: FUROSEMIDE 20 MG TAB PO SCH ×2 (08:30→18:10)
[2023-05-27] MEDS: APIXABAN 5 MG TABLET PO SCH ×2 (08:31→20:49)
[2023-05-27] MEDS: GABAPENTIN 300 MG CAP PO SCH ×3 (08:31→20:50)
[2023-05-27] MEDS: PANTOprazole 40 MG TAB PO SCH (08:31)
[2023-05-27] MEDS: CHOLECALCIFEROL 1,000 UNITS 25 MCG TAB PO SCH (08:32)
[2023-05-27] MEDS: MAGNESIUM OXIDE 400 MG TAB PO SCH ×2 (08:32→20:49)
[2023-05-27] MEDS: DULoxetine HCL 60 MG CAP PO SCH (08:32)
[2023-05-27] MEDS: DULoxetine HCL 30 MG CAP PO SCH (08:32)
[2023-05-27] MEDS: INSULIN ASPART PER UNIT CHARGE SC SCH ×4 (08:42→20:50)
[2023-05-27] MEDS: cefTRIAXone SODIUM 2,000 MG in DEXTROSE 5% 50 ML IV SCH (08:43)
[2023-05-27] MEDS: POTASSIUM CHLORIDE CRTAB 20 MEQ TABCR PO SCH ×2 (08:51→20:54)
--- NOTE | 2023-05-27 11:49 | Discharge Summary ---
Date of Service May 27, 2023 Admission HPI Per Admitting Provider 68-year-old female with past medical history significant for type 2 diabetes, chronic hypoxic respiratory failure on 3 L oxygen, hyperlipidemia, postsurgical hypothyroidism, hyperparathyroidism secondary to renal disease, chronic kidney disease stage IIIb, interstitial lung disease, obstructive sleep apnea on CPAP, chronic diastolic CHF, history of DVT and PE s/p IVC filter, history of heparin- induced thrombocytopenia, venous insufficiency, hypertension, right carotid artery stenosis, morbid obesity, GERD, fibromyalgia, restless leg syndrome, osteoarthritis, lumbar radiculopathy, depression, statin intolerance, abnormality of gait ambulates with walker, anxiety, presents with hypoglycemic episodes. Patient was recently started on Mounjaro since then she is having hypoglycemic episodes. Patient states her insulin dose was reduced twice. But but today her Dexcom could not read blood sugars. She was feeling lightheaded almost passed out and blurred visions and came to the ER. Oral glucose was given by EMS but by the time she came to the ER again the sugars dropped to 50s. She was given additional oral intake which improved her sugars to 80s. But the blood sugars again declined to 50 so amp of D50 was given and we were called for admission. Looks like her sugars are again coming down. Patient currently resting comfortably and hemodynamically stable. Has some mild headache. Has some blurred visions. Denies any earaches or runny nose or sore throat. No cough. No fevers. Appetite is okay. Denies any chest pain or shortness of breath. No nausea or vomiting. No abdominal pain. Somewhat constipated. Normal bladder movements. Complains of some cramps in right leg. Admission Exam Per Admitting Provider General- Not in distress Head- atraumatic Eyes- PERRL, EOMI, ENT- oropharynx clear Neck- supple, no JVD, no adenopathy, no thyromegaly; carotids +2/2, no bruits appreciated Lungs- clear to auscultation , no wheezing or crackles Heart- regular rhythm; no murmur, no gallop, Abdomen- normal bowel sounds, soft, nontender, no masses no distension Extremities- mild pretibial edema present , no erythema seen Neuro- alert, oriented x 3; PERRL, EOMI; no facial palsy; no dysarthria; non focal. Skin- warm & dry Principal Diagnosis Hypoglycemia Discharge Exam Constitutional: WD/WN, vitals as above, NAD, sitting up in bed, pleasant, conversing easily Respiratory: normal respiratory effort, lungs clear to auscultation, no wheeze, rales, rhonchi. Normal insp/exp effort, no accessory muscle use Cardiovascular: RRR, no murmur, no edema Vessels: no JVD or carotid bruit Chest: normal inspection of chest Abdomen: normal bowel sounds, soft, nontender, no hepatosplenomegaly Musculoskeletal: no cyanosis or clubbing, extremities motor strength 5/5 Skin: no rashes, warm and dry normal turgor Neurologic: PERRL, EOMI, accommodation nl, no face palsy, no dysarthria CN's II- XI intact bilaterally and moves all extremities Psychiatric: A+Ox3, euthymic affect Discharge Data Allergies Allergy/AdvReac Type Severity Reaction Status Date / Time morphine Allergy Severe VIOLENT Verified 05/25/23 19:43 REACTION-"ALMOST " SWELLING dapagliflozin [From Farxiga] Allergy Intermediate YEAST Verified 05/25/23 19:43 INFECTIONS tetanus toxoid, adsorbed Allergy Intermediate PASSED OUT Verified 05/25/23 19:43 AND GOT SICK WHEN A CHILD bupropion [From Wellbutrin] AdvReac Intermediate Recurrent Verified 05/25/23 19:43 falls as per patient codeine AdvReac Intermediate Hallucinati Verified 05/25/23 19:43 ons empagliflozin AdvReac Intermediate YEAST Verified 05/25/23 19:43 [From Jardiance] INFECTIONS heparin AdvReac Intermediate HIT; FLUID Verified 05/25/23 19:43 IN LUNGS hydrocodone [From Vicodin] AdvReac Intermediate sleepiness Verified 05/25/23 19:43 Consultations 05/25/23 20:33 ED Decision to Admit Stat Hospital Course (1) Hypoglycemia: 68-year-old female with past medical history significant for type 2 diabetes, chronic hypoxic respiratory failure on 3 L oxygen, hyperlipidemia, postsurgical hypothyroidism, hyperparathyroidism secondary to renal disease, chronic kidney disease stage IIIb, interstitial lung disease, obstructive sleep apnea on CPAP, chronic diastolic CHF, history of DVT and PE s/p IVC filter, history of heparin- induced thrombocytopenia, venous insufficiency, hypertension, right carotid artery stenosis, morbid obesity, GERD, fibromyalgia, restless leg syndrome, osteoarthritis, lumbar radiculopathy, depression, statin intolerance, abnormality of gait ambulates with walker, anxiety, presents with hypoglycemic episodes. Patient was recently started on Tirzepatide and has noticed her blood glucose trending down. Her long-acting insulin and short-acting insulin has been decreased by her primary care doctor but she continued to experience hypoglycemic episodes. During the hospitalization, she was given D5; her blood glucose trended up and it was discontinued. She was started on Lantus 25 units at night; fasting blood glucose was 120s in AM. Patient was discharged home on following regimen: 1) Decrease the long-acting insulin ( Degludec) to 25 units at night from 50 units 2) Decrease mealtime insulin to 7 units at breakfast and lunch and 10 units for dinner. Discussion was done with the patient regarding titration of the long-acting and mealtime insulin based on her blood glucose numbers. Total Time Total Time Spent Total Time Spent (In Minutes): 35 Total Time Includes: Examination of the Patient, Discharge Planning, Medication Reconciliation, Communication With Other Providers and Other Discharge Plan Discharge Items Patient Disposition: Home - Self-Care Reason For Visit: HYPOGLYCEMIA Discharge Diagnosis: Hypoglycemia Activity: Resume your previous activity Non-emergency contact: Primary Care Provider Call non-emergency contact if: you have any medication questions and your symptoms worsen Follow-up/Referrals: Galdino Andujar DO [Primary Care Provider] - (Date & Time 05/31/2023 2:20 PM Provider Galdino Andujar DO Department [facility] [address], [place] ) Diet: Carb Consistent or DM2 Addtl Attending Provider Instructions: You were admitted to the hospital due to low blood glucose. The following changes are recommended on new insulin regimen: 1) Decrease the long-acting insulin ( Degludec) to 25 units at night from 50 units 2) Decrease mealtime insulin to 7 units at breakfast and lunch and 10 units for dinner. Please measure your fasting blood glucose every morning. If your blood glucose is still less than 80 Mg per DL; decrease the dose of degludec by 2 units gra dually. If your fasting blood glucose is greater than 140 for 2 consecutive days; you can increase degludec by 2 units. Also check your postprandial sugar; if it is less than 80mg/dl, decrease the d ose of NovoLog by 2 units. If it is greater than 180; you can increase NovoLog by 2 units. An appointment will be set up with your primary care doctor for next week for follow-up. Pending Studies at Discharge: No Stand-Alone Forms: My [facility], Smoking Cessation Medications and DC Order Prescriptions: Continued levothyroxine 200 mcg Tablet 200 mcg PO QAM Rx Instructions: TOTAL DOSE 250 MCG--TAKES WITH 25 MCG TAB. omeprazole 20 mg Capsule,Delayed Release(Dr/Ec) 20 mg PO QAM insulin aspart U-100 [Novolog FlexPen U-100 Insulin] 100 unit/mL (3 mL) insulin pen 0 sliding scale dose SUBCUT DIRECTED Rx Instructions: TAKES 20 UNITS WITH BREAKFAST & LUNCH, THEN 30 UNITS WITH DINNER. plus sliding scale 1 unit for every 25 units bg >150 dicyclomine 20 mg tablet 20 mg PO QID PRN (Reason: abdominal pain) levothyroxine 50 mcg tablet 50 mcg PO QAM Rx Instructions: TOTAL DOSE 250 MCG--TAKES WITH 200 MCG TAB. docusate sodium [Colace] 100 mg capsule 100 mg PO BID PRN (Reason: Constipation) meclizine 12.5 mg tablet 12.5 mg PO TID PRN (Reason: Dizziness) clonazepam 0.5 mg Tablet 0.5 mg PO BID PRN (Reason: anxiety) Qty: 0 0RF ropinirole 2 mg Tablet 2 mg PO HS potassium chloride 20 mEq tablet,ER particles/crystals 20 meq PO BID metformin 500 mg tablet extended release 24 hr 500 mg PO QAM furosemide 40 mg tablet 60 mg PO BID Qty: 120 0RF oxycodone 5 mg tablet 5 mg PO Q6H PRN (Reason: Pain) duloxetine 30 mg capsule,delayed release(DR/EC) 30 mg PO QAM Rx Instructions: TOTAL DOSE 90 MG--TAKES WITH 60 MG CAP. Mounjaro 2.5 mg/0.5 mL pen injector 2.5 mg SUBCUT WK Rx Instructions: SUNDAYS magnesium oxide 400 mg (241.3 mg magnesium) tablet 400 mg PO BID tramadol 50 mg tablet 50 mg PO TID PRN (Reason: Pain) trazodone 100 mg tablet 100 mg PO HS acetaminophen 500 mg Tablet 500 - 1,000 mg PO Q6H PRN (Reason: Pain) cholecalciferol (vitamin D3) [Vitamin D3] 25 mcg (1,000 unit) Capsule 25 mcg PO QAM Eliquis 5 mg Tablet 5 mg PO BID baclofen 10 mg Tablet 10 mg PO BID PRN (Reason: muscle spasm) Qty: 30 0RF gabapentin 300 mg capsule 600 mg PO TID Qty: 30 0RF duloxetine 60 mg capsule,delayed release(DR/EC) 60 mg PO QAM Rx Instructions: TOTAL DOSE 90 MG--TAKES WITH 30 MG CAP. Changed insulin degludec [Tresiba FlexTouch U-100] 100 unit/mL (3 mL) Insulin Pen 25 unit SUBCUT HS Qty: 15 0RF Discharge Orders: Discharge Order (Routine); Ordered 05/27/23 Ordered By: Main Carmichael Admission Data Admit Date/Time: 05/25/23 21:26 Attending Provider: Main Carmichael Admit Provider: Abhilash Montes Primary Care Provider: Galdino Andujar Other Providers: Abhilash Montes ; Oxana Dean
[2023-05-27] MEDS ORDERED: IBUPROFEN 600 MG TAB PO STA (13:26)
--- NOTE | 2023-05-27 13:28 | Hospitalist Progress Note ---
Date of Service May 27, 2023 Assessment & Plan (1) Hypoglycemia: Plan: 68-year-old female with past medical history significant for type 2 diabetes, chronic hypoxic respiratory failure on 3 L oxygen, hyperlipidemia, postsurgical hypothyroidism, hyperparathyroidism secondary to renal disease, chronic kidney disease stage IIIb, interstitial lung disease, obstructive sleep apnea on CPAP, chronic diastolic CHF, history of DVT and PE s/p IVC filter, history of heparin- induced thrombocytopenia, venous insufficiency, hypertension, right carotid artery stenosis, morbid obesity, GERD, fibromyalgia, restless leg syndrome, osteoarthritis, lumbar radiculopathy, depression, statin intolerance, abnormality of gait ambulates with walker, anxiety, presents with hypoglycemic episodes. Hypoglycemia Patient was recently started on Tirzepatide and has noticed her blood glucose trending down. Her long-acting insulin and short-acting insulin has been decreased by her primary care doctor but she continued to experience hypoglycemic episodes. During the hospitalization, she was given D5; her blood glucose trended up and it was discontinued. She was started on Lantus 25 units at night; fasting blood glucose was 120s in AM. Migraine Reports headache in bilateral temporal region. Will do trial of Tylenol and ibuprofen. Will consider imaging if headache continues to become intractable. UTI Pt notes dysuria UA suggestive of infection Urine Cx growing E. coli; pansensitive. IV ceftriaxone; plan for 3 days. Last day today. Chronic hypoxic respiratory failure on home oxygen Interstitial lung disease Obstructive sleep apnea on CPAP nightly States she uses 3L of oxygen at baseline History of DVT and PE S/p IVC filter On Eliquis Chronic diastolic CHF On Lasix and potassium supplements Fluids discontinued Hypothyroidism On Synthyroid TSH stable Chronic kidney stage III Presented with creatinine of 1.6, at baseline Stable History of hypertension Currently only on diuretics Will monitor Depression and anxiety On duloxetine, trazodone and clonazepam as needed Restless legs syndrome On ropinirole DVT prophylaxis on Eliquis Full code Time spent evaluating patient, direct bedside care, chart review, placing orders, interpretation of diagnostic studies, discussion with consultants, patient, and family members, as well as other required patient management activities is 60 minutes Please note the above document was generated using voice recognition software. It may contain grammatical, syntax or spelling errors. Any formal questions or concerns about the content, text or information contained within the body of this dictation should be directly addressed to the provider for clarification Admission and Anticipated Discharge Date Admission Date: May 25, 2023 Subjective Patient reports severe headache; reported history of migraine. Blood glucose improved. Review of Systems Review of Systems: All systems reviewed & are unremarkable except as noted in Subjective Physical Exam Physical Exam: Constitutional: Alert orient x3; not in distress. Moderately obese. Respiratory: Bilateral vesicular breath sound. Cardiovascular: RRR, no murmur, no edema Vessels: no JVD or carotid bruit Chest: normal inspection of chest Abdomen: normal bowel sounds, soft, nontender, no hepatosplenomegaly Musculoskeletal: no cyanosis or clubbing, extremities motor strength 5/5 Skin: no rashes, warm and dry normal turgor Neurologic: PERRL, EOMI, accommodation nl, no face palsy, no dysarthria CN's II- XI intact bilaterally and moves all extremities Psychiatric: A+Ox3, euthymic affect Results & Data Results & Data Vital Signs (Past 12 Hours) Vital Signs Temp Pulse Pulse Resp BP Pulse Ox O2 Del Method 05/27/23 12:00 36.9 C 79 20 118/63 95 05/27/23 07:52 Nasal Cannula 05/27/23 07:35 36.9 C 79 20 118/63 95 Nasal Cannula 05/27/23 07:13 84 05/27/23 04:00 36.9 C 90 18 137/65 95 Nasal Cannula O2 Flow Rate 05/27/23 12:00 05/27/23 07:52 2 05/27/23 07:35 2 05/27/23 07:13 05/27/23 04:00 2
[2023-05-27] MEDS: traZODone HCL 100 MG TAB PO SCH (20:49)
[2023-05-27] MEDS: rOPINIRole HCL 2 MG TABLET PO SCH (20:49)
[2023-05-27] MEDS: clonazePAM 0.5 MG TAB PO PRN (20:50)
[2023-05-27] MEDS: LANTUS PER UNIT CHARGE SC SCH (20:50)
[2023-05-28] MEDS: LEVOTHYROXINE SODIUM 200 MCG TABLET PO SCH (04:06)
[2023-05-28] MEDS: LEVOTHYROXINE SODIUM 50 MCG TABLET PO SCH (04:07)
[2023-05-28] MEDS: traMADol HCL 50 MG TABLET PO PRN (05:12)
[2023-05-28 07:10] LABS: Basophils # (auto) 0.05 K/uL (0.00-0.20); Basophils % (auto) 0.6 %; Eosinophils # (auto) 0.44 K/uL (0.00-0.50); Eosinophils % (auto) 5.4 %; Hematocrit (blood only) 40.2 % (37.0-47.0); Hemoglobin 12.7 g/dl (12.0-16.0); Immature Granulocytes # (auto) 0.03 K/uL (0.01-0.20); Immature Granulocytes % (auto) 0.4 %; Lymphocytes # (auto) 1.74 K/uL (1.20-3.40); Lymphocytes % (auto) 21.5 %; Mean Corpuscular Hemoglobin 29.5 pg (25.0-34.0); Mean Corpuscular Hgb Conc 31.6 g/dL (32.0-36.0); Mean Corpuscular Volume 93.5 fL (80.0-100.0); Mean Platelet Volume 9.6 fL (9.4-12.4); Monocytes # (auto) 0.52 K/uL (0.11-0.59); Monocytes % (auto) 6.4 %; Neutrophils # (auto) 5.32 K/uL (1.40-6.50); Neutrophils % (auto) 65.7 %; Platelet Count 224 K/uL (130-400); RDW Coefficient of Variation 14.1 % (11.5-14.5); RDW Standard Deviation 48.3 fL (36.4-46.3)
[2023-05-28 07:57] LABS: BUN Creatinine Ratio 18.4 (10-20); Calcium 8.9 mg/dl (8.6-10.3); Creatinine Clr Calc Pharmacy 40.2 ml/min; Est GFR (African American) 30.9 ml/min; Est GFR (Non-African American) 26.6 ml/min; Potassium 3.7 mmol/L (3.5-5.1)
[2023-05-28] MEDS ORDERED: IBUPROFEN 600 MG TAB PO STA (08:26)
[2023-05-28] MEDS: DULoxetine HCL 30 MG CAP PO SCH (08:35)
[2023-05-28] MEDS: FUROSEMIDE 20 MG TAB PO SCH (08:35)
[2023-05-28] MEDS: PANTOprazole 40 MG TAB PO SCH (08:35)
[2023-05-28] MEDS: APIXABAN 5 MG TABLET PO SCH (08:35)
[2023-05-28] MEDS: MAGNESIUM OXIDE 400 MG TAB PO SCH (08:35)
[2023-05-28] MEDS: GABAPENTIN 300 MG CAP PO SCH (08:35)
[2023-05-28] MEDS: CHOLECALCIFEROL 1,000 UNITS 25 MCG TAB PO SCH (08:35)
[2023-05-28] MEDS: DULoxetine HCL 60 MG CAP PO SCH (08:35)
[2023-05-28] MEDS: POTASSIUM CHLORIDE CRTAB 20 MEQ TABCR PO SCH (08:37)
[2023-05-28] MEDS: INSULIN ASPART PER UNIT CHARGE SC SCH (08:38)
[2023-05-28] MEDS: cefTRIAXone SODIUM 2,000 MG in DEXTROSE 5% 50 ML IV SCH (08:38)
--- NOTE | 2023-05-28 10:46 | Discharge Summary ---
Date of Service May 28, 2023 Admission HPI Per Admitting Provider 68-year-old female with past medical history significant for type 2 diabetes, chronic hypoxic respiratory failure on 3 L oxygen, hyperlipidemia, postsurgical hypothyroidism, hyperparathyroidism secondary to renal disease, chronic kidney disease stage IIIb, interstitial lung disease, obstructive sleep apnea on CPAP, chronic diastolic CHF, history of DVT and PE s/p IVC filter, history of heparin- induced thrombocytopenia, venous insufficiency, hypertension, right carotid artery stenosis, morbid obesity, GERD, fibromyalgia, restless leg syndrome, osteoarthritis, lumbar radiculopathy, depression, statin intolerance, abnormality of gait ambulates with walker, anxiety, presents with hypoglycemic episodes. Patient was recently started on Mounjaro since then she is having hypoglycemic episodes. Patient states her insulin dose was reduced twice. But but today her Dexcom could not read blood sugars. She was feeling lightheaded almost passed out and blurred visions and came to the ER. Oral glucose was given by EMS but by the time she came to the ER again the sugars dropped to 50s. She was given additional oral intake which improved her sugars to 80s. But the blood sugars again declined to 50 so amp of D50 was given and we were called for admission. Looks like her sugars are again coming down. Patient currently resting comfortably and hemodynamically stable. Has some mild headache. Has some blurred visions. Denies any earaches or runny nose or sore throat. No cough. No fevers. Appetite is okay. Denies any chest pain or shortness of breath. No nausea or vomiting. No abdominal pain. Somewhat constipated. Normal bladder movements. Complains of some cramps in right leg. Admission Exam Per Admitting Provider General- Not in distress Head- atraumatic Eyes- PERRL, EOMI, ENT- oropharynx clear Neck- supple, no JVD, no adenopathy, no thyromegaly; carotids +2/2, no bruits appreciated Lungs- clear to auscultation , no wheezing or crackles Heart- regular rhythm; no murmur, no gallop, Abdomen- normal bowel sounds, soft, nontender, no masses no distension Extremities- mild pretibial edema present , no erythema seen Neuro- alert, oriented x 3; PERRL, EOMI; no facial palsy; no dysarthria; non focal. Skin- warm & dry Principal Diagnosis Hypoglycemia Discharge Exam Constitutional: Alert orient x3; not in distress. Moderately obese. Respiratory: Bilateral vesicular breath sound. Cardiovascular: RRR, no murmur, no edema Vessels: no JVD or carotid bruit Chest: normal inspection of chest Abdomen: normal bowel sounds, soft, nontender, no hepatosplenomegaly Musculoskeletal: no cyanosis or clubbing, extremities motor strength 5/5 Skin: no rashes, warm and dry normal turgor Neurologic: PERRL, EOMI, accommodation nl, no face palsy, no dysarthria CN's II- XI intact bilaterally and moves all extremities Psychiatric: A+Ox3, euthymic affect Discharge Data Allergies Allergy/AdvReac Type Severity Reaction Status Date / Time morphine Allergy Severe VIOLENT Verified 05/25/23 19:43 REACTION-"ALMOST " SWELLING dapagliflozin [From Farxiga] Allergy Intermediate YEAST Verified 05/25/23 19:43 INFECTIONS tetanus toxoid, adsorbed Allergy Intermediate PASSED OUT Verified 05/25/23 19:43 AND GOT SICK WHEN A CHILD bupropion [From Wellbutrin] AdvReac Intermediate Recurrent Verified 05/25/23 19:43 falls as per patient codeine AdvReac Intermediate Hallucinati Verified 05/25/23 19:43 ons empagliflozin AdvReac Intermediate YEAST Verified 05/25/23 19:43 [From Jardiance] INFECTIONS heparin AdvReac Intermediate HIT; FLUID Verified 05/25/23 19:43 IN LUNGS hydrocodone [From Vicodin] AdvReac Intermediate sleepiness Verified 05/25/23 19:43 Consultations 05/25/23 20:33 ED Decision to Admit Stat Hospital Course (1) Hypoglycemia: 68-year-old female with past medical history significant for type 2 diabetes, chronic hypoxic respiratory failure on 3 L oxygen, hyperlipidemia, postsurgical hypothyroidism, hyperparathyroidism secondary to renal disease, chronic kidney disease stage IIIb, interstitial lung disease, obstructive sleep apnea on CPAP, chronic diastolic CHF, history of DVT and PE s/p IVC filter, history of heparin- induced thrombocytopenia, venous insufficiency, hypertension, right carotid artery stenosis, morbid obesity, GERD, fibromyalgia, restless leg syndrome, osteoarthritis, lumbar radiculopathy, depression, statin intolerance, abnormality of gait ambulates with walker, anxiety, presents with hypoglycemic episodes. Patient was recently started on Tirzepatide and has noticed her blood glucose trending down. Her long-acting insulin and short-acting insulin has been decreased by her primary care doctor but she continued to experience hypoglycemic episodes. During the hospitalization, she was given D5; her blood glucose trended up and it was discontinued. She was started on Lantus 25 units at night; fasting blood glucose was 120s in AM. Patient was discharged home on following regimen: 1) Decrease the long-acting insulin ( Degludec) to 25 units at night from 50 units 2) Decrease mealtime insulin to 6 units at breakfast and lunch and 8 units for dinner. Discussion was done with the patient regarding titration of the long-acting and mealtime insulin based on her blood glucose numbers. Please note the above document was generated using voice recognition software. It may contain grammatical, syntax or spelling errors. Any formal questions or concerns about the content, text or information contained within the body of this dictation should be directly addressed to the provider for clarification Total Time Total Time Spent Total Time Spent (In Minutes): 35 Total Time Includes: Examination of the Patient, Discharge Planning, Medication Reconciliation, Communication With Other Providers and Other Discharge Plan Discharge Items Patient Disposition: Home - Self-Care Reason For Visit: HYPOGLYCEMIA Discharge Diagnosis: Hypoglycemia Activity: Resume your previous activity Non-emergency contact: Primary Care Provider Call non-emergency contact if: you have any medication questions and your symptoms worsen Follow-up/Referrals: Galdino Andujar DO [Primary Care Provider] - (Date & Time 05/31/2023 2:20 PM Provider Galdino Andujar DO Department Family [facility] [address], [place] ) Diet: Carb Consistent or DM2 Addtl Attending Provider Instructions: You were admitted to the hospital due to low blood glucose. The following changes are recommended on new insulin regimen: 1) Decrease the long-acting insulin ( Degludec) to 25 units at night from 50 units 2) Decrease mealtime insulin to 6 units at breakfast and lunch and 8 units for dinner. Please measure your fasting blood glucose every morning. If your blood glucose is still less than 80 Mg per DL; decrease the dose of degludec by 2 units gradually. If your fasting blood glucose is greater than 140 for 2 consecutive days; you can increase degludec by 2 units. Also check your postprandial sugar; if it is less than 80mg/dl, decrease the dose of NovoLog by 2 units. If it is greater than 180; you can increase NovoLog by 2 units. An appointment will be set up with your primary care doctor for next week for follow-up. Pending Studies at Discharge: No Stand-Alone Forms: My [facility] [employer], Smoking Cessation Medications and DC Order Prescriptions: Continued levothyroxine 200 mcg Tablet 200 mcg PO QAM Rx Instructions: TOTAL DOSE 250 MCG--TAKES WITH 25 MCG TAB. omeprazole 20 mg Capsule,Delayed Release(Dr/Ec) 20 mg PO QAM insulin aspart U-100 [Novolog FlexPen U-100 Insulin] 100 unit/mL (3 mL) insulin pen 0 sliding scale dose SUBCUT DIRECTED Rx Instructions: TAKES 20 UNITS WITH BREAKFAST & LUNCH, THEN 30 UNITS WITH DINNER. plus sliding scale 1 unit for every 25 units bg >150 dicyclomine 20 mg tablet 20 mg PO QID PRN (Reason: abdominal pain) levothyroxine 50 mcg tablet 50 mcg PO QAM Rx Instructions: TOTAL DOSE 250 MCG--TAKES WITH 200 MCG TAB. docusate sodium [Colace] 100 mg capsule 100 mg PO BID PRN (Reason: Constipation) meclizine 12.5 mg tablet 12.5 mg PO TID PRN (Reason: Dizziness) clonazepam 0.5 mg Tablet 0.5 mg PO BID PRN (Reason: anxiety) Qty: 0 0RF ropinirole 2 mg Tablet 2 mg PO HS potassium chloride 20 mEq tablet,ER particles/crystals 20 meq PO BID metformin 500 mg tablet extended release 24 hr 500 mg PO QAM furosemide 40 mg tablet 60 mg PO BID Qty: 120 0RF oxycodone 5 mg tablet 5 mg PO Q6H PRN (Reason: Pain) duloxetine 30 mg capsule,delayed release(DR/EC) 30 mg PO QAM Rx Instructions: TOTAL DOSE 90 MG--TAKES WITH 60 MG CAP. Mounjaro 2.5 mg/0.5 mL pen injector 2.5 mg SUBCUT WK Rx Instructions: SUNDAYS magnesium oxide 400 mg (241.3 mg magnesium) tablet 400 mg PO BID tramadol 50 mg tablet 50 mg PO TID PRN (Reason: Pain) trazodone 100 mg tablet 100 mg PO HS acetaminophen 500 mg Tablet 500 - 1,000 mg PO Q6H PRN (Reason: Pain) cholecalciferol (vitamin D3) [Vitamin D3] 25 mcg (1,000 unit) Capsule 25 mcg PO QAM Eliquis 5 mg Tablet 5 mg PO BID baclofen 10 mg Tablet 10 mg PO BID PRN (Reason: muscle spasm) Qty: 30 0RF gabapentin 300 mg capsule 600 mg PO TID Qty: 30 0RF duloxetine 60 mg capsule,delayed release(DR/EC) 60 mg PO QAM Rx Instructions: TOTAL DOSE 90 MG--TAKES WITH 30 MG CAP. Changed insulin degludec [Tresiba FlexTouch U-100] 100 unit/mL (3 mL) Insulin Pen 25 unit SUBCUT HS Qty: 15 0RF Discharge Orders: Discharge Order (Routine); Ordered 05/28/23 Ordered By: Main Carmichael Admission Data Admit Date/Time: 05/27/23 14:14 Attending Provider: Main Carmichael Admit Provider: Abhilash Montes Primary Care Provider: Galdino Andujar Other Providers: Abhilash Montes ; Oxana Dean Other Interventions: Discharge Summary Assessment (RN) Last Done: 05/28/23 08:41
--- NOTE | 2023-05-30 14:04 | Electrocardiogram Report ---
Test Reason : Blood Pressure : / mmHG Vent. Rate : 084 BPM Atrial Rate : 084 BPM P-R Int : 174 ms QRS Dur : 082 ms QT Int : 382 ms P-R-T Axes : 048 021 039 degrees QTc Int : 451 ms Normal sinus rhythm Normal ECG When compared with ECG of 25-MAR-2023 10:23, Premature atrial complexes are no longer Present Confirmed by Parish Julien ([id number]) on 05/30/2023 2:04:27 PM Referred By: REFERRED SELF Confirmed By:Parish Julien
--- OUTSIDE RECORDS SUMMARY | 2023-06-01 04:04 | External Medical Summary | Summary of Care ---
Author Name Unknown Organization [facility] Address [address] [place] [address] Phone [phone] Care Team Providers Care Dry Cell Sealer Name Role Phone Lexii Andujar DO Primary Care Provider [phone] Reason for Visit * Reason Comments eRx-Medication Refill Encounter Details Date Type Department Care Team Description 05/23/2023 Refill [facility] [address] [facility] [address] Lexii Andujar DO [address] [place] [address] Fibromyalgia; Major depressive disorder, recurrent, moderate (HCC) Allergies Active Allergy Reactions Severity Noted Date Comments Bupropion High 12/26/2021 Other reaction(s): Recurrent falls as per patient Codeine 07/08/2014 hallucination Dapagliflozin Other (Please comment) 02/28/2023 Yeast infection Pollen 05/18/2019 Heparin 09/04/2009 Heparin Induced Thrombocytopenia Hydrocodone Neuro complications (Please comment) 07/28/2020 Empagliflozin Other (Please comment) Medium 05/17/2018 3 yeast infections in 6 weeks after starting Morphine And Related 09/16/1997 Hallucinations Tetanus Toxoid Other (Please comment) 06/15/2011 Passed out documented as of this encounter (statuses as of 05/23/2023) Medications Medication Sig Dispensed Refills Start Date End Date Status ONETOUCH DELICA LANCETS 33G MISC Check blood sugars 3-4 times daily 180 Each 5 8 Active oxygen GASIndications:ELISSA (obstructive sleep apnea) Use 3 L/min(Oxygen) as directed continuous. 0 0 Active CPAP every night at bedtime. 0 Active BD Pen Needle Short U/F 31G X 8 MM (Insulin Pen Needle) use five times daily 500 Each 3 2 Active OneTouch Ultra Blue In Vitro Strip (Glucose Blood) Check sugars 3-4 times daily, E11.9 400 Strip 3 2 Active rOPINIRole HCl 2 MG Oral Tablet (Requip)Indications :Restless legs syndrome Take 1 Tablet (2 mg) by mouth at bedtime. 30 Tablet 5 2 Active Dicyclomine HCl 20 MG Oral Tablet (Bentyl)Indications :Irritable bowel syndrome, unspecified type Take 1 Tablet (20 mg) by mouth 4 times a day as needed for Cramping. 180 Tablet 3 2 Active Meclizine HCl 12.5 MG Oral Tablet (Antivert)Indicatio ns:Vertigo Take 1 Tablet (12.5 mg) by mouth 3 times a day as needed for Dizziness. 30 Tablet 1 2 Active metOLazone 2.5 MG Oral Tablet (Zaroxolyn) Take 1 Tablet (2.5 mg) by mouth daily as needed (leg edema). Do not take unless instructed by provider 15 Tablet 5 2 Active Ondansetron HCl 4 MG Oral TabletIndications:V ertigo Take 1 Tablet (4 mg) by mouth every 6 hours as needed for Nausea. 90 Tablet 6 2 Active Magnesium Oxide 400 MG Oral TabletIndications: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, NYHA class 1 and CKD stage 3 (HCC),Chronic diastolic congestive heart failure (HCC) TAKE 1 TABLET BY MOUTH IN THE MORNING AND AT BEDTIME 60 Tablet 5 3 Active Eliquis 5 MG Oral Tablet (Apixaban) TAKE 1 TABLET BY MOUTH IN THE MORNING AND AT BEDTIME 60 Tablet 5 3 Active Levothyroxine Sodium 50 MCG Oral Tablet (Levoxyl)Indication s:Hyperparathyroidi sm, secondary renal (HCC) TAKE 1 TABLET BY MOUTH ONCE DAILY IN THE MORNING 30 Tablet 5 3 Active Senna-Time S 8.6-50 MG Oral Tablet (senna-docusate) TAKE 1 TABLET BY MOUTH IN THE MORNING AND AT BEDTIME 60 Tablet 5 3 Active traZODone HCl 100 MG Oral Tablet (Desyrel)Indication s:Primary insomnia TAKE 1 TABLET BY MOUTH AT BEDTIME 30 Tablet 5 3 Active Baclofen 10 MG Oral Tablet (Lioresal) Take 1 Tablet by mouth 2 times a day as needed. 0 Active Gabapentin 300 MG Oral Capsule (Neurontin)Indicati ons:Fibromyalgia Take 2 Capsules by mouth in the morning and 2 Capsules at noon and 2 Capsules before bedtime. 120 Capsule 5 3 Active Potassium Chloride Ayleen ER 20 MEQ Oral Tablet Extended ReleaseIndications: 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, NYHA class 1 and CKD stage 3 (HCC),Chronic diastolic congestive heart failure (HCC) TAKE 1 TABLET BY MOUTH IN THE MORNING AND AT BEDTIME 60 Tablet 5 3 Active Omeprazole 20 MG Oral Capsule Delayed Release (PriLOSEC)Indicatio ns:Gastroesophageal reflux disease with esophagitis without hemorrhage TAKE 1 CAPSULE BY MOUTH ONCE DAILY IN THE MORNING 30 Capsule 3 3 Active Acetaminophen 500 MG Oral Tablet (Tylenol) Take 2 Tablets by mouth in the morning and 2 Tablets at noon and 2 Tablets before bedtime. 100 Tablet 0 3 Active DIURETIC TITRATION PLAN If no improvement on day 3, contact heart failure managing provider. 1 Each 0 3 Active Potassium Chloride Ayleen ER 20 MEQ Oral Tablet Extended Release Take only as directed with diuretic titration plan 30 Tablet 0 3 Active Levothyroxine Sodium 200 MCG Oral Tablet (Levoxyl)Indication s:Postsurgical hypothyroidism TAKE 1 TABLET BY MOUTH DAILY AT LEAST 30 MINUTES PRIOR TO FIRST MEAL OF THE DAY OR OTHER MEDICATIONS 100 Tablet 1 2 08/31/20 23 Active clonazePAM 0.5 MG Oral Tablet (KlonoPIN)Indicatio ns:Restless legs syndrome,Anxiety state TAKE 1 TABLET BY MOUTH IN THE MORNING AND AT BEDTIME 60 Tablet 0 3 Active Docusate Sodium 100 MG Oral Capsule (Colace) Take 1 Capsule by mouth in the morning and 1 Capsule before bedtime. 0 3 Active Clobetasol Propionate 0.05 % External Ointment (Temovate)Indicatio ns:Dermatitis Apply topically to affected area 2 times a day. Apply to leg rash 60 g 0 3 Active DULoxetine HCl 60 MG Oral Capsule Delayed Release Particles (Cymbalta) Take 1 Capsule by mouth in the morning. Take with 30mg cap to equal 90mg daily. 30 Capsule 5 3 Active oxyCODONE HCl 5 MG Oral Tablet (Oxy IR) Take 1 Tablet by mouth every 6 hours as needed for Pain, Severe. 45 Tablet 0 3 Active traMADol HCl 50 MG Oral Tablet (Ultram)Indications :Lumbar radiculopathy,Prima ry osteoarthritis of left knee Take 1 Tablet by mouth every 8 hours as needed for Pain, Severe. 90 Tablet 0 3 Active Tresiba FlexTouch 100 UNIT/ML Subcutaneous Solution Pen-injector (Insulin Degludec)Indication s:Type 2 diabetes mellitus with hemoglobin A1c goal of 7.0%-8.0% ([facility]) INJECT 55 UNITS UNDER THE SKIN IN THE EVENING 60 mL 3 3 Active NovoLOG FlexPen 100 UNIT/ML Subcutaneous Solution Pen-injector (insulin aspart)Indications: Type 2 diabetes mellitus with hemoglobin A1c goal of 7.0%-8.0% ([facility]) Inject 25-30 units with meals + sliding scale 1 units for every 25 units BG > 150. 150 mL 3 3 Active metFORMIN HCl ER 500 MG Oral Tablet Extended Release 24 Hour (Glucophage XR)Indications:Type 2 diabetes mellitus with hemoglobin A1c goal of less than 8.0% ([facility]) TAKE 1 TABLET BY MOUTH ONCE DAILY IN THE MORNING 30 Tablet 3 Active Mounjaro 2.5 MG/0.5ML Subcutaneous Solution Pen-injector (Tirzepatide)Indica tions:Type 2 diabetes mellitus with hemoglobin A1c goal of less than 8.0% ([facility]) Inject 2.5 mg under the skin once a week. 2 mL 1 3 Active Furosemide 40 MG Oral Tablet (Lasix)Indications: Chronic diastolic congestive heart failure (HCC) TAKE 1 AND 1/2 TABLETS BY MOUTH IN THE MORNING AND AT BEDTIME 84 Tablet 5 3 Active Cholecalciferol 25 MCG (1000 UT) Oral Capsule TAKE 1 TABLET BY MOUTH ONCE DAILY IN THE MORNING 30 Capsule 5 3 Active DULoxetine HCl 30 MG Oral Capsule Delayed Release Particles (Cymbalta)Indicatio ns:Fibromyalgia,Pete or depressive disorder, recurrent, moderate (HCC) TAKE 1 CAPSULE BY MOUTH ONCE DAILY IN THE MORNING 30 Capsule 5 3 Active DULoxetine HCl 30 MG Oral Capsule Delayed Release Particles (Cymbalta) Take 1 Capsule by mouth in the morning. Do not cut, crush or chew Takes with a cymbalta 60 mg to = cymbalta 90 mg daily. 30 Capsule 5 3 05/23/20 23 Discontinued Hospital, Clinic, or Other Facility Administered Medication Ordered Dose Route Frequency Start Date End Date Status Albuterol Sulfate (Proventil) (2.5 MG/3ML) 0.083% inhalation solution 2.5 mgIndications:Chronic hypoxemic respiratory failure (HCC),SOB (shortness of breath),Small airways disease,ILD (interstitial lung disease) (HCC) 2.5 mg NEBULIZER PRN 01/07/2023 01/07/2024 Active Albuterol Sulfate (Proventil) (5 MG/ML) 0.5% *conc* inhalation solution 2.5 mgIndications:Chronic hypoxemic respiratory failure (HCC),SOB (shortness of breath),Small airways disease,ILD (interstitial lung disease) (HCC) 2.5 mg NEBULIZER PRN 01/07/2023 01/07/2024 Active documented as of this encounter (statuses as of 05/23/2023) Active Problems Problem Noted Date Type 2 diabetes mellitus wit h stage 3b chronic kidney disease, with long-term current use of insulin 09/29/2022 Last Assessment & Plan: "RED FLAG" Diabetic symptoms: o Other: none Goal HgbA1c o <7 Diabetic Complications o Vascular (examples: PVD, PAD, CAD, CVA) o Renal (example: CKD, Proteinuria, Dialysis) Medication Regimen o Metformin o Basal/Long Acting Insulin o Bolus/Short Acting Insulin o GLP-1 Agonist (ex: Victoza, Trulicity, Ozempic) DM Secondary Prevention o Routine Podiatry Care Additional Comments o Last hgba1c 03/05/23--7.1 o Statin intolerant Anxiety state 09/29/2022 Sacroiliitis, not elsewhere classified 0 09/29/2022 Last Assessment & Plan: Has been having more back pain as of recently. Taking tramadol with minimal relief. Finished a course of steroids. No longer taking gabapentin due to other medication interactions. -has an appointment with her pain doctor next week -will also discuss pain control with her PCP next week ILD (interstitial lung disease) 08/11/20 Last Assessment & Plan: Followed by pulailyn Stable today Moderate episode of recurrent major depr essive disorder 08/11/2022 Last Assessment & Plan: Reports her depression is much improved now on duloxetine 90mg daily Primary osteoarthritis of both knees Last Assessment & Plan: Declines PT, reports it causes too much pain. Following with orthopedics Chronic kidney disease, stage 3b 022 Overview: Per CKD protocol Encounter for long-term (current) use of other medications 01/07/2022 Overview: Dr Andujar Type 2 diabetes mellitus with stage 3b c hronic kidney disease 01/07/2022 Type 2 diabetes mellitus with hemoglobin A1c goal of less than 8.0% 01/07/2022 Last Assessment & Plan: Current Status: "Stable" for patient / At or near baseline Degree of Condition Awareness: Demonstrates very good awareness of condition, disease course, and prognosis "RED FLAG" Diabetic symptoms: o none Goal HgbA1c o <7 Diabetic Complications o Vascular (examples: PVD, PAD, CAD, CVA) Medication Regimen o Metformin o GLP-1 Agonist (ex: Victoza, Trulicity, Ozempic) o Other: Tresiba DM Secondary Prevention Recurrent deep vein thrombosis (DVT) of both lower extremities 01/07/2022 Last Assessment & Plan: Continue Eliquis Chronic hypoxemic respiratory failure Last Assessment & Plan: At baseline. -continue O2 3 L at all times. Heparin 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/31/2021 Atherosclerosis of [place] coronary arter 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 12/31/2021 Last Assessment & Plan: No chest pain. Stable. -continue Eliquis -likely no Wili or beta-faviola due to hypotension. Statin intolerance Carotid artery stenosis, asymptomatic, r ight 12/31/2021 Last Assessment & Plan: MRI neck this coming week F/u scheduled with Dr. Tang Spinal stenosis of lumbar region without neurogenic claudication 07/15/2020 Last Assessment & Plan: Pain is more controlled now on oxycodone prn and duloxetine 90mg daily Sees pain mgmt tomorrow for injection Primary osteoarthritis of left knee 10/28 Hyperparathyroidism, secondary renal 08/2020 Vasculitis 11/07/2019 Hypertensive heart and kidne y disease with chronic diastolic congestive heart failure and stage 3b chronic kidney disease 05/14/2019 Last Assessment & Plan: "RED FLAG" HF Symptoms: o Leg Swelling (Examples: "I can't wear certain socks or shoes", "My pants feel tight") o Abdominal Bloating (Examples: "I can't wear certain pants", "My belly feels hard", "I look ") Medication Regimen: o Beta Faviola Therapy: No beta-faviola secondary to --unknown o WILI Inhibitor/ARB Therapy: No WILI/ARB/ARNI secondary to: --unknown o Diuretic therapy: Lasix Self - Management Plan o Add metolazone (Zaroxolyn) 2.5-5mg for 1 days. If using a potassium supplement, double the dose of the supplement will be given on the day of and on the day after the metolazone Exacerbation Plan o BMP o Pro-BNP Additional Comments: o Stable today Lumbar radiculopathy 09/27/2018 Last Assessment & Plan: Upcoming appt with pain mgmt Currently using tramadol with tylenol q 8 hours Continues duloxetine--dose to be lowered in future d/t starting sertraline. Baclofen to use prn. Reports she is using ibuprofen prn severe pain "as last resort" since it does help. Use with caution d/t CKD--defer to pcp Controlled substance agreement signed Morbid obesity with BMI of 50.0-59.9, ad ult 06/27/2017 Overview: Per Obesity protocol #1 - Per Obesity Taxonomy ICD-10 update of inactive term Gastroesophageal reflux disease with eso phagitis 03/04/2017 Last Assessment & Plan: Continue omeprazole Restless legs syndrome 03/25/2016 Last Assessment & Plan: Continue Requip Fibromyalgia 02/02/2016 Last Assessment & Plan: Continue tramadol Abnormality of gait 02/02/2016 Last Assessment & Plan: Home PT to start Frank filter in place 08/19/2014 History of pulmonary embolus (PE) 2013 Last Assessment & Plan: Continue Eliquis Statin intolerance 07/16/2014 Essential hypertension with goal blood p ressure less than 140/90 02/22/2014 Last Assessment & Plan: BP stable -continue diuretics Venous insufficiency 02/07/2013 ELISSA (obstructive sleep apnea) 09/16/2011 Overview: CPAP 11 cwp Mild, AHI 11.3 but with significant nocturnal hypoxemia Dicks Last Assessment & Plan: Continue CPAP Postsurgical hypothyroidism 06/16/2011 Last Assessment & Plan: TSH 1.1 in 11/18 -continue Synthroid Dyslipidemia 09/04/2009 Overview: Per Lipid Taxonomy. documented as of this encounter (statuses as of 05/23/2023) Resolved Problems Problem Noted Date Resolved Date Food insecurity 03/07/2023 04/07/2023 Overview: Per [facility] Protocol Food insecurity 11/08/2022 12/08/2022 Overview: Per [facility] Protocol Type 2 diabetes mellitus wit h diabetic chronic kidney disease 12/31/2021 07/27/2022 Last Assessment & Plan: Last hgba1c 7.6. 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 02/0 02/2023 Acute deep vein thrombosis ( DVT) of proximal vein of lower extremity, unspecified laterality 12/03/2021 03/12/2022 Hypotension 12/19/2020 01/07/2022 Uncontrolled type 2 diabetes mellitus with stage 4 chronic kidney disease, with long-term current use of insulin 01/07/2020 07/01/2020 Overview: Per CKD protocol Chronic respiratory failure with hypoxia 020 12/19/2020 Other atherosclerosis of lorrie martinez arteries of extremities, left leg 02/26/2019 11/20/2019 Impetigo 09/27/2018 05/14/2019 Mild episode of recurrent major depressive disor zachary 08/26/2018 08/30/2022 Last Assessment & Plan: Sx controlled with duloxetine, nortriptyline Thoracic back pain 07/25/2018 04/24/2020 Overview: Acute. Vaginal karmen 07/13/2018 08/26/2018 Hypervolemia 07/13/2018 08/26/2018 Chronic diastolic congestive heart failure 06/1203/20/2023 Heparin-induced thrombocytopenia 06/12/2018 08/26/2018 ELSIE (acute kidney injury) 06/12/20182017 Uncontrolled type 2 diabetes mellitus with stage 3 chronic kidney disease, with long-term current use of insulin 05/24/2017 01/10/2020 Overview: Per CKD protocol Type 2 diabetes mellitus wit h hemoglobin A1c goal of 7.0%-8.0% 10/14/2014 01/07/2022 Overview: ICD-10 update of inactive term Kidney disease, chronic, stage III (GFR 30-59 ml /min) 11/19/2013 01/06/2018 Overview: Per CKD protocol #1 HTN, goal below 140/80 05/15/2012 4 Overview: Per HTN Protocol #27. Nocturnal hypoxemia 07/22/2011 07/15/2020 Overview: Nocturnal ox 2 LPM 07/20/11 -- mean 84%, low 76%, time <89% 6:21 hours, TINY 47 DHC Nontoxic uninodular goiter 06/16/201108/17 Body mass index (BMI) of 40.0-44.9 in adult 07/2805/24/2017 Obesity, morbid (more than 1 00 lbs over ideal weight or BMI > 40) 12/23/2009 06/30/2017 Overview: Per Obesity Taxonomy ICD-10 update of inactive term HTN, GOAL BELOW 130/80 10/22/2009 2 Overview: Per HTN Taxonomy. Pneumonia in aspergillosis 09/14/200902/15 Venous thrombosis 09/14/2009 10/15/2010 Respiratory failure, acute 09/14/200902/15 Spontaneous pneumothorax 09/14/2009 017 ELLIE (generalized anxiety disorder) 09/13/2009 07/02/2022 Last Assessment & Plan: Sx controlled with Klonopin Dysuria 08/23/2009 02/15/2017 History of heparin-induced thrombocytopenia 07/2806/12/2018 Type 2 diabetes mellitus wit h hemoglobin A1c goal of less than 7.0% 07/10/2009 10/14/2014 Overview: Modified per Diabetes protocol #14. ICD-10 update of inactive term Primary localized osteoarthrosis, lower leg 05/200811/20/2019 Dyslipidemia, goal LDL below 160 08/16/2007 09/04/2009 Overview: Per Lipid Taxonomy. ADVANCE DIRECTIVE INFORMATION 03/01/2006 Overview: Pt has booklet. Other allergic rhinitis 12/31/2003 08/26/20 18 Overview: ICD-10 update of inactive term HTN, goal below 140/90 04/09/2003 0 Overview: Per HTN Taxonomy. DM type 2, not at goal 05/29/2002 9 Overview: Modified per Diabetes protocol #14. TENOSYNOVITIS FOOT-ANKLE 12/26/2001 017 Goiter 01/13/2000 06/28/2011 BACKACHE NOS 08/26/1999 05/24/2017 OBESITY, UNSPECIFIED 08/26/1999 12/23/2009 Overview: Per Obesity Taxonomy Perforation of intestine 017 Overview: COLON Diverticulitis documented as of this encounter (statuses as of 05/23/2023) Immunizations Name Administration Dates Next Due COVID-19 mRNA, LNP-s, No Pre serve, 2-Dose Series (Buyosphere) 01/08/2021,12/18/2020 COVID-19, LNP-s, No Preserve , Navarro-sucrose, Ages 12+ (Pfizer) 2022,10/01/2021 Pneumococcal Conjugate Vacci ne, 20-valent ([id number]) 03/12/2022 Pneumococcal Polysaccharide PPV23 (Pneumovax) 08/22/2009,06/15/2006 Season Influenza, Quad, PF, Adjuvanted, 65+ Yrs, IM (FLUAD) 06/13/2020 Seasonal Influenza, PF, 6 mo ns & Above, IM , (Flulaval) 07/23/2019,06/12/2018,07/14/2017 Seasonal Influenza, Quadriva lent Hd (Fluzone Hd) 06/18/2022,07/20/2021 Seasonal Influenza, Quadriva lent, No Preserve, IM 06/24/2016,07/24/2015 Seasonal Influenza, Split, I IV3, With Preserve, Inj 06/13/2014,07/07/2012,06/28/2011,06/15,08/01/2009,07/04/2008,08/14/2007 ,10/19/2006 Varicella Zoster Vaccine (Adult) 12/11/2015 Zoster Vaccine Recombinant (Shingrix) 05/08/2020 ,11/07/2019 documented as of this encounter Social History Tobacco Use Types Packs/Day Years Used Date Smoking Tobacco: Former Cigarettes 1 15 Q uit: 08/26/1997 Passive Smoke Exposure: Past Smokeless Tobacco: Never Alcohol Use Standard Drinks/Week Comments Not Currently 0 (1 standard drink = 0.6 oz pur e alcohol) rare Food Insecurity Answer Date Recorded Within the past 12 months, y ou worried that your food would run out before you got money to buy more. Never true 05/09/2023 Within the past 12 months, t he food you bought just didn't last and you didn't have money to get more. Never true 05/09/2023 Sex Assigned at Date Recorded Female 11/07/2019 2:21 PM EST Job Start Date Occupation Industry Not on file Not on file Not on file documented as of this encounter Miscellaneous Notes * Telephone Encounter - Lexii Andujar DO - 05/23/2023 4:25 PM EDTSigned Prescriptions: Disp Refills DULoxetine HCl 30 MG Oral Capsule Delayed *30 Cap*5 Sig: TAKE 1CAPSULE BY MOUTH ONCE DAILY IN THE MORNINGAuthorizing Provider: LEXII ANDUJAR * Telephone Encounter - Ingrid Rene LPN - 05/23/2023 2:54 PM EDTPending Prescriptions: Disp Refills DULoxetine HCl 30 MG Oral Capsule Delayed *30 Cap*0 Sig: TAKE 1 CAPSULE BY MOUTH ONCE DAILY IN THE MORNING * Telephone Encounter - Ingrid Rene LPN - 05/23/2023 2:54 PM EDT Did you pend patient's preferred pharmacy and medication before forwarding?yes Pharmacy: [facility] [address] Pending Prescriptions: Disp Refills DULoxetine HCl 30 MG Oral Capsule Delayed*30 Cap*0 Sig: TAKE 1 CAPSULE BY MOUTH ONCE DAILY IN THE MORNING Last Visit: Visit date not found (in office), 03/18/2023 (telemedicine) Next Visit: 05/26/2023 If no future appointments scheduled, and last appointment is greater than a year ago, please schedule patient for a follow-up appointment Last date the medication was ordered: 04/22/23 Is this request for a controlled substance?No Urine Drug Screen: Results for orders placed or performed in visit on 11/29/22 PAIN MANAGEMENT DRUG PANEL, URINE W/ INTERPRETATION Result Value Compliance Interpretation Based on the medication information provided: The presence of tramadol and o-desmethyltramadol is CONSISTENT with tramadol use. The presence of 7-aminoclonazepam is CONSISTENT with clonazepam use. Amphetamine Negative Benzodiazepines Refer to confirmation results (A) Cannabinoids Negative Cocaine Metabolite Negative Fentanyl Negative Hydrocodone / Hydromorphone Negative Methadone Metabolite Negative Morphine / Codeine Negative Oxycodone / Oxymorphone Negative Valid Interpretation Normal Creatinine JOHNNY 32 Narrative Cutoff Concentrations: Drug Level Amphetamines 500 ng/mL Benzodiazepines 100 ng/mL Cannabinoids 50 ng/mL Cocaine Metabolite 150 ng/mL Fentanyl 1 ng/mL Hydrocodone / Hydromorphone 300 ng/mL Methadone Metabolite 100 ng/mL Morphine / Codeine 300 ng/mL Oxycodone / Oxymorphone 100 ng/mL Screening results are presumptive and can only be used for medical purposes. Confirmatory testing is available upon request. *Note: Due to a large number of results and/or encounters for the requested time period, some results have not been displayed. A complete set of results can be found in Results Review. Patient Phone Numbers Labs: Lab Results Component Value Date/Time CREAT 1.6 (H) 03/17/2023 12:37 PM CREAT 1.54 (A) 12/26/2021 12:00 AM CREAT 2.0 (H) 05/06/2020 08:46 AM POTASSIUM 4.0 03/17/2023 12:37 PM POTASSIUM 3.6 12/26/2021 12:00 AM POTASSIUM 4.0 05/06/2020 08:46 AM TSH 1.10 11/01/2022 02:13 PM TSH 5.35 (H) 05/06/2020 08:46 AM LDLCALC 120 07/02/2022 03:11 PM LDLCALC UNINTERPRETABLE RESULT 03/14/2019 01:54 PM LDLDIRECT 126 03/14/2019 01:54 PM LDLDIRECT 109 07/14/2017 12:35 PM ALT 17 03/17/2023 12:37 PM ALT 27 05/06/2020 08:46 AM HGBA1C 7.1 03/05/2023 12:00 AM HGBA1C 7.3 (H) 01/23/2020 11:11 AM Ingrid Rene LPN [facility] 05/23/2023,2:54 PM * Telephone Encounter - Becki Marrero RPh - 05/23/2023 2:52 PM EDTPending Prescriptions: Disp Refills DULoxetine HCl 30 MG Oral Capsule Delayed *30 Cap*0 Sig: TAKE 1CAPSULE BY MOUTH ONCE DAILY IN THE MORNING documented in this encounter Plan of Treatment Upcoming Encounters Date Type Specialty Care Team Description 05/26/2023 Scheduled Telephone [facility] Nurse Triage [address] [place] [address] [place] [address] 06/17/2023 Office Visit Orthopedics Andrea Paez PA-C [address] [place] [address] 07/11/2023 Office Visit Family Medicine Lexii Andujar, DO [address] [place] [address] 07/12/2023 Telemedicine [facility] Lucia Garcia, TATIANA [address] [place] [address] Jeanette Whiteside, Community Health Instructor Psychiatric Aide [address] [place] [address] 08/08/2023 Nurse Only [employer], Nurse Annual Wellness Visit [address] [place] [address] Scheduled Procedures Name Priority Associated Diagnoses Date/Ti me COLONOSCOPY FLEXIBLE PROXIMAL DIAGNOSTIC Recall Colon cancer screening Health Maintenance Due Date Last Done Comments Cologuard 2000 Fecal Occult Blood Test 2000 Sigmoidoscopy 2000 COVID-19 Vaccine (5 - Pfizer series) 06/08/2022 2022, 10/01/2021, 01/08/2021, Additional history exists Influenza Vaccine (FLU shot) (#1) 2023 06/18/2022, 07/20/2021, 06/13/2020, Additional history exists HbA1c 09/04/2023 03/05/2023, 01/24, 11/01/2022, Additional history exists GFR 09/16/2023 03/17/2023, 11/24, 11/01/2022, Additional history exists Albumin/Creatinine Ratio 11/01/2023 023, 01/07/2022, 05/24/2019, Additional history exists DIABETES-FOOT EXAM 11/01/2023 11/01/2022, 0 01/07/2022, 01/14/2021, Additional history exists TSH 11/01/2023 11/01/2022, 12/25, 12/25/2020, Additional history exists CKD PHOS USE SMARTSET 91658 02/12/202401/24, 01/07/2022, 03/12/2021, Additional history exists CKD HGB USE SMARTSET 25088 03/17/202403/17, 03/17/2023, 11/01/2022, Additional history exists Mammogram 04/21/2024 04/21/2023, 01/24, 10/01/2020, Additional history exists DIABETES-EYE EXAM 05/09/2024 05/09/2023, , 04/14/2021, Additional history exists Depression Screening, Annual for Pts 12 and Over 05/09/2024 05/09/2023, 06/12/2018 Colonoscopy 02/17/2026 02/18/2016, 01/25, 01/28/2006, Additional history exists Colorectal Cancer Screening 02/17/2026 Zoster Vaccines Completed 05/08/2020, 10/27, 12/11/2015 Pneumococcal Vaccine: 65+ Years Completed 03/12/2022, 08/22/2009, 06/15/2006 GARDASIL-HPV IMMUNIZATION SERIES Aged Out No longer eligible based on patient's age to complete this topic Hepatitis B Aged Out No longer eligi ble based on patient's age to complete this topic MENINGOCOCCAL (MENACTRA/MENVEO) Aged Out No longer eligible based on patient's age to complete this topic documented as of this encounter Medical Devices Not on filedocumented as of this encounter Visit Diagnoses Diagnosis Fibromyalgia Mylagia and myositis, unspecified Major depressive disorder, recurrent, moderate (HCC) Major depressive disorder, recurrent episode, moderate documented in this encounter Advance Directives Documents on File Type Date Recorded Patient Director Global Intelligence Expl anation POLST 03/19/2020 4:25 PM POLST Latest Code Status on File Code Status Date Activated Date Inactivated Comments Full Code 06/15/2011 12:22 PM 06/17/2011 6:44 PM This order reflects the patients wishes and were consensually agreed upon. Code Status History Code Status Date Activated Date Inactivated Comments Full Code 09/12/2009 1:47 PM 06/03/2011 7:31 AM This order reflects the patients wishes and were consensually agreed upon. Full Code 09/06/2009 4:03 PM 09/12/2009 1:47 PM Thi s order reflects the patients wishes and were consensually agreed upon. Full Code 08/21/2009 3:22 PM 09/06/2009 4:03 PM Thi s order reflects the patients wishes and were consensually agreed upon. Question Answer Comments Discussion of Advance Directives occurred with: Patient Does the patient have a Living Will? No Does the patient have Health Care Power of Fish Tender? No Healthcare Agents on File Name Relationship Healthcare Agent Relationship Communication Lexii Camp Other - (no specific identity) Health Care Power of Fish Tender Princess Allen Other - (no specific identity) Health Care Power of Fish Tender Care Teams Dry Cell Sealer Relationship Specialty Start Date End Date Lexii Andujar, [address] [place] [address] PCP - General Internal Medicine 01/07/22 documented as of this encounter
--- OUTSIDE RECORDS SUMMARY | 2023-06-01 04:05 | External Medical Summary | Summary of Care ---
Author Name Unknown Organization [facility] Address [address] [place] [address] Phone [phone] Care Team Providers Care Drosophere Operator Name Role Phone Galdino Andujar DO Primary Care Provider [phone] Reason for Visit * Reason Comments Dosage Adjustment In Person (Anticoag Cl inic) Diabetes Follow-Up Encounter Details Date Type Department Care Team Description 05/09/2023 Office Visit Family Practice [facility], [place] [address] [place] [address] College, Pharmacist [address] [address] Type 2 diabetes mellitus with stage 3b chronic kidney disease, with long-term current use of insulin (HCC)* Allergies Active Allergy Reactions Severity Noted Date [...] as of this encounter (statuses as of 05/10/2023) Medications Medication Sig Dispensed Refills Start Date End Date Status ONEOBEYUCH DELFRANTZ LANCETS 33G MISC Check blood sugars 3-4 times daily 180 Each 5 08/01/2018 Active oxygen GASIndications:ELISSA (obstructive sleep apnea) Use 3 L/min(Oxygen) as directed continuous. 0 11/28/2019 Active CPAP every night at bedtime. 0 Active BD Pen Needle Short U/F 31G X 8 MM (Insulin Pen Needle) use five times daily 500 Each 3 11/04/2021 Active OneTouch Ultra Blue In Vitro Strip (Glucose Blood) Check sugars 3-4 times daily, E11.9 400 Strip 3 11/04/2021 Active Cholecalciferol 25 MCG (1000 UT) Oral Capsule Take 1 Capsule (1,000 Units) by mouth in the morning. 30 Capsule 5 08/25/2022 Active metFORMIN HCl ER 500 MG Oral Tablet Extended Release 24 Hour (Glucophage XR)Indications:Type 2 diabetes mellitus with hemoglobin A1c goal of less than 8.0% ([facility]) Take 1 Tablet (500 mg) by mouth in the morning. 30 Tablet 5 08/25/2022 Active rOPINIRole HCl 2 MG Oral Tablet (Requip)Indications: Restless legs syndrome Take 1 Tablet (2 mg) by mouth at bedtime. 30 Tablet 5 08/25/2022 Active Dicyclomine HCl 20 MG Oral Tablet (Bentyl)Indications: Irritable bowel syndrome, unspecified type Take 1 Tablet (20 mg) by mouth 4 times a day as needed for Cramping. 180 Tablet 3 08/25/2022 Active Meclizine HCl 12.5 MG Oral Tablet (Antivert)Indication s:Vertigo Take 1 Tablet (12.5 mg) by mouth 3 times a day as needed for Dizziness. 30 Tablet 1 08/25/2022 Active metOLazone 2.5 MG Oral Tablet (Zaroxolyn) Take 1 Tablet (2.5 mg) by mouth daily as needed (leg edema). Do not take unless instructed by provider 15 Tablet 5 08/25/2022 Active Ondansetron HCl 4 MG Oral TabletIndications:Ve rtigo Take 1 Tablet (4 mg) by mouth every 6 hours as needed for Nausea. 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, NYHA class 1 and CKD stage 3 ([facility]),Chronic diastolic congestive heart failure (HCC) TAKE 1 TABLET BY MOUTH IN THE MORNING AND AT BEDTIME 60 Tablet 01/12/2023 Active Eliquis 5 MG Oral Tablet (Apixaban) TAKE 1 TABLET BY MOUTH IN THE MORNING AND AT BEDTIME 60 Tablet 01/12/2023 Active Levothyroxine Sodium 50 MCG Oral Tablet (Levoxyl)Indications :Hyperparathyroidism , secondary renal (HCC) TAKE 1 TABLET BY MOUTH ONCE DAILY IN THE MORNING 30 Tablet 01/12/2023 Active Senna-Time S 8.6-50 MG Oral Tablet (senna-docusate) TAKE 1 TABLET BY MOUTH IN THE MORNING AND AT BEDTIME 60 Tablet 02/10/2023 Active traZODone HCl 100 MG Oral Tablet (Desyrel)Indications :Primary insomnia TAKE 1 TABLET BY MOUTH AT BEDTIME 30 Tablet 02/10/2023 Active Furosemide 40 MG Oral Tablet (Lasix)Indications:C hronic diastolic congestive heart failure (HCC) TAKE 1 AND 1/2 TABLETS BY MOUTH IN THE MORNING AND AT BEDTIME 84 Tablet 02/10/2023 Active Baclofen 10 MG Oral Tablet (Lioresal) Take 1 Tablet by mouth 2 times a day as needed. 0 Active Gabapentin 300 MG Oral Capsule (Neurontin)Indicatio ns:Fibromyalgia Take 2 Capsules by mouth in the morning and 2 Capsules at noon and 2 Capsules before bedtime. 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 100 Tablet 0 03/18/2023 Active DIURETIC TITRATION PLAN If no improvement on day 3, contact heart failure managing provider. 1 Each 0 03/18/2023 Active Potassium Chloride Ayleen ER 20 MEQ Oral Tablet Extended Release Take only as directed with diuretic titration plan 30 Tablet 0 03/18/2023 Active Levothyroxine Sodium 200 MCG Oral Tablet (Levoxyl)Indications :Postsurgical hypothyroidism TAKE 1 TABLET BY MOUTH DAILY AT LEAST 30 MINUTES PRIOR TO FIRST MEAL OF THE DAY OR OTHER MEDICATIONS 100 Tablet 1 08/31/2022 3 Active clonazePAM 0.5 MG Oral Tablet (KlonoPIN)Indication s:Restless legs syndrome,Anxiety state TAKE 1 TABLET BY MOUTH IN THE MORNING AND AT BEDTIME 60 Tablet 0 04/10/2023 Active Docusate Sodium 100 MG Oral Capsule (Colace) Take 1 Capsule by mouth in the morning and 1 Capsule before bedtime. 0 04/14/2023 Active Mounjaro 2.5 MG/0.5ML Subcutaneous Solution Pen-injector (Tirzepatide) Inject 2.5 mg under the skin once a week. 2 mL 1 04/14/2023 Active Clobetasol Propionate 0.05 % External Ointment (Temovate)Indication s:Dermatitis Apply topically to affected area 2 times a day. Apply to leg rash 60 g 0 04/14/2023 Active NovoLOG FlexPen 100 UNIT/ML Subcutaneous Solution Pen-injector (insulin aspart)Indications:T ype 2 diabetes mellitus with hemoglobin A1c goal of 7.0%-8.0% ([facility]) Inject 40-45 units with meals + sliding scale 1 units for every 25 units BG > 150. 150 mL 3 04/21/2023 Active DULoxetine HCl 30 MG Oral Capsule Delayed Release Particles (Cymbalta) Take 1 Capsule by mouth in the morning. Do not cut, crush or chew Takes with a cymbalta 60 mg to = cymbalta 90 mg daily. 30 Capsule 5 04/22/2023 Active DULoxetine HCl 60 MG Oral Capsule Delayed Release Particles (Cymbalta) Take 1 Capsule by mouth in the morning. Take with 30mg cap to equal 90mg daily. 30 Capsule 5 04/22/2023 Active oxyCODONE HCl 5 MG Oral Tablet (Oxy IR) Take 1 Tablet by mouth every 6 hours as needed for Pain, Severe. 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 Stable. -continue Eliquis -likely no Wlii or beta-faviola due to hypotension. Statin intolerance [...] Assessment & Plan: Home PT to start [place] filter in place 08/19/2014 History of pulmonary [...] as of this encounter (statuses as of 05/10/2023) Resolved Problems Problem Noted Date Resolved Date [...] as of this encounter (statuses as of 05/10/2023) Immunizations Name Administration Dates Next Due COVID-19 mRNA, LNP-s, No Pre serve, 2-Dose Series ([email or web address]) 01/08/2021,12/18/2020 COVID-19, LNP-s, No Preserve , Navarro-sucrose, Ages 12+ (Pfizer) 2022,10/01/2021 Pneumococcal Conjugate Vacci ne, 20-valent ([id number]) 03/12/2022 Pneumococcal Polysaccharide PPV23 (Pneumovax) 08/22/2009,06/15/2006 Seasonal Influenza, Quadriva lent Hd (Fluzone Hd) 06/18/2022,07/20/2021 Seasonal Influenza, Quadriva lent, No Preserve, 6 Mons & Above, IM 07/23/2019,06/12/2018,07/14/2017 Seasonal Influenza, Quadriva lent, No Preserve, Adjuvanted, 65+ Yrs, IM 06/13/2020 Seasonal Influenza, Quadriva lent, No Preserve, IM [...] at Date Recorded Female 11/07/2019 2:[address] Job Start Date Occupation Industry Not on file Not on file Not on file documented as of this encounter Progress Notes * Frances Inman Ad, [facility] - 05/09/2023 3:11 PM EDT Medication Therapy [facility] - Diabetes Management Progress Note Stephanie Camp, identified by name and date of , is a 68 year old female being seen for diabetes management/education. Patient presents for return diabetic visit. DIABETES: Current diabetic medications: Novolog - 40 units with breakfast, 40 units lunch and 45 units with supper + SS 1:25 >150 beforemeals Tresiba 58 units at bedtime STOP Trulicity 4.5 mg weekly- Tuesday mornings START Mounjaro 2.5mg weekly on Sundays Metformin ER 500 mg 1 tablet daily eGFR 33 mL/min 12/08/22 Medication Injection Site: Abdomen Lifestyle: Diet: unchanged Glucose Review/SMBG: Readings per patient memory/recall: Patient is currently testing 3-4 times a day. Still doesn't have her Dexcom. Reports recent readings have all been good. Lowest was 90s, no 200s. Hypoglycemia: Does your blood sugar go below 70 mg/dL? No Hyperglycemia symptoms present: none Recent Labs Units 03/05/23 0000 02/11/23 1131 11/01/22 1413 HEMOGLOBIN A1C - [facility] % -- 7.7* 6.9* HEMOGLOBIN, [id number] 7.1 -- -- Recent Labs Units 03/17/23 1237 12/08/22 1515 11/01/22 1413 ESTIMATED GLOMERULAR FILTRATION RATE - [facility] mL/min 35* 33* 35* CREATININE - [facility] mg/dL 1.6* 1.7* 1.6* HYPERTENSION: Patient on ACEi/ARB: no, not indicated BP Readings from Last 3 Encounters: 05/09/23 132/64 05/04/23 157/85 05/03/23 134/72 Blood pressure at goal: yes HYPERLIPIDEMIA: Patient is taking moderate or high intensity statin: No Current regimen: Statin intolerant Goal statin intensity: high The ASCVD Risk score (Marylu FRANK, et al., 2019) failed to calculate for the following reasons: The patient has a prior ME or stroke diagnosis Recent Labs Units 07/02/22 1511 LDL CHOLESTEROL (CALCULATED) - [facility] mg/dL 120 HEALTH MAINTENANCE REVIEW: Health Maintenance Due Topic Date Due COVID-19 Vaccine (5 - Pfizer series) 06/08/2022 Depression, Most Recent Score >= 10 (will fire each visit until score < 10) 04/15/2023 ASSESSMENT & PLAN: No diagnosis found. BG Readings - Blood sugars not available. Will check in with [facility] [employer] [facility] for status check. Medications - Reviewed current regimen, patient is adherent to regimen. No change for now. Could increase Mounjaro as tolerated. Cannot tolerate SGLT2s. Diet, Exercise, Lifestyle - No significant lifestyle changes since last visit. Patient is agreeable to SMBG 4 time(s) daily. Patient aware to contact clinic if any hypoglycemia before next visit. MEDICATION CHANGES: no change Diabetic Medications: Novolog - 40 units with breakfast, 40 units lunch and 45 units with supper + SS 1:25 >150 beforemeals Tresiba 58 units at bedtime Mounjaro 2.5mg weekly on Sundays Metformin ER 500 mg 1 tablet daily eGFR 33 mL/min 12/08/22 HEALTH MAINTENANCE INTERVENTIONS: Labs: Up to Date Immunizations: Up to Date Foot Exam: Up to Date Eye Exam: Up to Date Annual Wellness Visit: Up to Date FOLLOW UP: Return to clinic in 4 weeks via phone call Frances Huerta RPh Clinical Pharmacist - Crop Pest Control Specialist Medication Therapy Management Clinic 05/09/2023, 3:12 PM documented in this encounter Plan of Treatment Upcoming Encounters Date Type Specialty Care Team Description 05/25/2023 Home Visit [facility] Vera Capellan RN [address] [place] [address] 06/17/2023 Office Visit Orthopedics Andrea Paez PA-C [address] [place] [id number] 07/11/2023 Office Visit Family Medicine Galdino Andujar, DO [address] [facility] [address] 08/08/2023 Nurse Only [employer]illary [employer], Nurse Annual Wellness Visit [address] [facility] [place] [address] Scheduled Procedures Name Priority Associated Diagnoses Date/Ti [...] 11/24, 11/01/2022, Additional history exists Albumin/Creatinine Ratio 11/01/20232 023, 01/07/2022, 05/24/2019, Additional history exists DIABETES-FOOT EXAM 11/01/2023 11/01/2022, 0 01/07/2022, 01/14/2021, Additional history exists TSH 11/01/2023 11/01/2022, 12/25, 12/25/2020, Additional history exists CKD PHOS USE SMARTSET 48218 02/12/202401/24, 01/07/2022, 03/12/2021, Additional history exists CKD HGB USE SMARTSET 53811 03/17/202403/17, 03/17/2023, 11/01/2022, Additional history exists Mammogram [...] as of this encounter Visit Diagnoses Diagnosis Type 2 diabetes mellitus with stage 3b chronic kidney disease, with long-term current use of insulin (HCC)- Primary documented in this encounter Advance Directives Documents on File Type Date Recorded Patient Backer Up Expl anation POL 03/19/2020 4:25 PM POL Latest Code Status on File Code Status [...] the patient have Health Care Power of Nicking Machine Operator? No Healthcare Agents on File Name Relationship Healthcare Agent Relationship Communication Galdino Camp Other - (no specific identity) Health Care Power of Nicking Machine Operator Princess Allen Other - (no specific identity) Health Care Power of Nicking Machine Operator Care Teams Drosophere Operator Relationship Specialty Start Date End Date Galdino Andujar, DO [address] [place] [address] PCP - General Internal Medicine 01/07/22 documented as of this encounter
--- OUTSIDE RECORDS SUMMARY | 2023-06-01 04:05 | External Medical Summary | Summary of Care ---
Author Name Unknown Organization [facility] Address [address] [place] [address] Phone [phone] Care Team Providers Care Board Turner Name Role Phone Galdino Andujar DO Primary Care Provider [phone] Reason for Visit * Reason Onset Date Comments Advice 05/16/2023 BSG Encounter Details Date Type Department Care Team Description 05/16/2023 Telephone Family Practice [facility], [place] [address] [place] [address] Galdino Andujar DO [address] [place] [address] Advice (BSG) Allergies Active Allergy Reactions Severity Noted Date [...] as of this encounter (statuses as of 05/16/2023) Medications Medication Sig Dispensed Refills Start Date [...] hemoglobin A1c goal of less than 8.0% ([facility]) Take 1 Tablet (500 mg) by mouth [...] 08/25/2022 Active Ondansetron HCl 4 MG Oral TabletIndications:V ertigo Take 1 Tablet (4 mg) by mouth every 6 hours as needed for Nausea. 90 Tablet 6 08/25/2022 Active Magnesium Oxide 400 MG Oral TabletIndications: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, NYHA class 1 and CKD stage 3 (HCC),Chronic diastolic congestive heart failure (HCC) TAKE 1 TABLET BY MOUTH IN THE MORNING AND AT BEDTIME 60 Tablet 5 01/12/2023 Active Eliquis 5 MG Oral Tablet (Apixaban) TAKE 1 TABLET BY MOUTH IN THE MORNING AND AT BEDTIME 60 Tablet 5 01/12/2023 Active Levothyroxine Sodium 50 MCG Oral Tablet (Levoxyl)Indication s:Hyperparathyroidi sm, secondary renal (HCC) TAKE 1 TABLET BY MOUTH ONCE DAILY IN THE MORNING 30 Tablet 5 01/12/2023 Active Senna-Time S 8.6-50 MG Oral Tablet (senna-docusate) TAKE 1 TABLET BY MOUTH IN THE MORNING AND AT BEDTIME 60 Tablet 5 02/10/2023 Active traZODone HCl 100 MG Oral Tablet (Desyrel)Indication s:Primary insomnia TAKE 1 TABLET BY MOUTH AT BEDTIME 30 Tablet 5 02/10/2023 Active Furosemide 40 MG Oral Tablet (Lasix)Indications: Chronic diastolic congestive heart failure (HCC) TAKE 1 AND 1/2 TABLETS BY MOUTH IN THE MORNING AND AT BEDTIME 84 Tablet 4 02/10/2023 Active Baclofen 10 MG Oral Tablet (Lioresal) Take 1 Tablet by mouth 2 times a day as needed. 0 Active Gabapentin 300 MG Oral Capsule (Neurontin)Indicati ons:Fibromyalgia Take 2 Capsules by mouth in the morning and 2 Capsules at noon and 2 Capsules before bedtime. 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 45 Tablet 0 05/02/2023 Active traMADol HCl 50 MG Oral Tablet (Ultram)Indications :Lumbar radiculopathy,Prima ry osteoarthritis of left knee Take 1 Tablet by mouth every 8 hours as needed for Pain, Severe. 90 Tablet 0 05/09/2023 Active Tresiba FlexTouch 100 UNIT/ML Subcutaneous Solution Pen-injector (Insulin Degludec)Indication s:Type 2 diabetes mellitus with hemoglobin A1c goal of 7.0%-8.0% (HCC) INJECT 55 UNITS UNDER THE SKIN IN THE EVENING 60 mL 3 05/16/2023 Active NovoLOG FlexPen 100 UNIT/ML Subcutaneous Solution Pen-injector (insulin aspart)Indications: Type 2 diabetes mellitus with hemoglobin A1c goal of 7.0%-8.0% (HCC) Inject 25-30 units with meals + sliding scale 1 units for every 25 units BG > 150. 150 mL 3 05/16/2023 Active Tresiba FlexTouch 100 UNIT/ML Subcutaneous Solution Pen-injector (Insulin Degludec)Indication s:Type 2 diabetes mellitus with hemoglobin A1c goal of 7.0%-8.0% (HCC) INJECT 58 UNITS UNDER THE SKIN IN THE EVENING 60 mL 3 03/15/2023 05/16/20 23 Discontinu ed(Refill) NovoLOG FlexPen 100 UNIT/ML Subcutaneous Solution Pen-injector (insulin aspart)Indications: Type 2 diabetes mellitus with hemoglobin A1c goal of 7.0%-8.0% ([facility]) Inject 40-45 units with meals + sliding scale 1 units for every 25 units BG > 150. 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/31/2021 Atherosclerosis of [place] coronary arter 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 12/31/2021 [...] Assessment & Plan: Home PT to start [place] filter in place 08/19/2014 History of pulmonary embolus (PE) 2013 Last Assessment & Plan: Continue Eliquis Statin intolerance 07/16/2014 Essential hypertension with goal blood p ressure less than 140/90 02/22/2014 Last Assessment & Plan: BP stable -continue diuretics Venous insufficiency 02/07/2013 ELISSA (obstructive sleep apnea) 09/16/2011 Overview: CPAP 11 cwp Mild, AHI 11.3 but with significant nocturnal hypoxemia Dickthaddeus Last Assessment & Plan: Continue CPAP Postsurgical hypothyroidism 06/16/2011 Last Assessment & Plan: TSH 1.1 in 11/18 -continue Synthroid Dyslipidemia 09/04/2009 Overview: Per [employer]. documented as of this encounter (statuses as of 05/16/2023) Resolved Problems Problem Noted Date Resolved Date Food insecurity 03/07/2023 04/07/2023 Overview: Per [facility] Protocol Food insecurity 11/08/2022 12/08/2022 Overview: Per [facility] Protocol Type 2 diabetes mellitus wit h diabetic chronic kidney disease 12/31/2021 07/27/2022 Last Assessment & Plan: Last hgba1c 7.6. 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02/2023 Acute deep vein thrombosis ( DVT) of [...] inactive term Primary localized osteoarthrosis, lower leg 100 05/200811/20/2019 Dyslipidemia, goal LDL below 160 08/16/2007 [...] as of this encounter (statuses as of 05/16/2023) Immunizations Name Administration Dates Next Due COVID-19 mRNA, LNP-s, No Pre serve, 2-Dose Series (Daily Dealy) 01/08/2021,12/18/2020 COVID-19, LNP-s, No Preserve , Navarro-sucrose, Ages 12+ (Pfizer) 2022,10/01/2021 Pneumococcal Conjugate Vacci ne, 20-valent ([id number]) 03/12/2022 Pneumococcal Polysaccharide PPV23 (Pneumovax) 08/22/2009,06/15/2006 Season [...] encounter Miscellaneous Notes * Telephone Encounter - Frances Duong, [facility] - 05/16/2023 3:55 PM EDT Diabetes telephone follow - up 05/16/2023 Patient Phone Numbers - Reason for contacting patient: Patient reports sugars are all over the place - way low to way high. Sugars are going high with eating then low after every meal. Patient giving novolog after eating. - Current diabetic medications: Decrease Novolog - 35 units with breakfast, 35 units lunch and 40 units with supper + SS 1:25 >150 before meals Tresiba 58 units at bedtime Mounjaro 2.5mg weekly on Sundays Metformin ER 500 mg 1 tablet daily eGFR 33 mL/min 12/08/22 - Glucose review/ SMBG: Lunch today: tuna salad sandwich, pineapple + 33 units Novolog, 1pm - Then after lunch sugar went to 250 2pm 80s 3pm 60s - 2 apple juice and glucerna 4pm - BG 89 via fingerstick Therapy Management Assessment/Plan: 1) Diabetes: Mounjaro appears to be decreasing insulin demands. Will continue to pull back on insulin doses. Decrease Novolog - 25 units with breakfast, 25 units lunch and 30 units with supper + SS 1:25 >150 before meals Decrease Tresiba 55 units at bedtime Mounjaro 2.5mg weekly on Sundays Metformin ER 500 mg 1 tablet daily eGFR 33 mL/min 12/08/22 Follow up in 1 week or sooner as needed. Frances Huerta RPh, Pharm D Clinical Pharmacist Medication [facility] 05/16/2023, 3:55 PM * Telephone Encounter - ELISSA Snider - 05/16/2023 3:26 PM EDT Wants to talk to Frances about her BSG being low everyday Please call documented in this encounter Plan of Treatment Upcoming Encounters Date Type Specialty Care Team Description 05/25/2023 [facility] [address] [facility] [address] 06/17/2023 Office Visit Orthopedics Andrea Paez PA-C [address] [place] [address] 07/11/2023 Office Visit Family Medicine Galdino Andujar, DO [address] [facility] [address] 08/08/2023 Nurse Only 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 No Healthcare Agents on File Name Relationship Healthcare Agent Relationship Communication Galdino Camp Other - (no specific identity) Health Care Power of Paving Contractor Princess Staplesfany Other - (no specific identity) Health Care Power of Paving Contractor Care Teams Board Turner Relationship Specialty Start Date End Date Galdino Andujar, [address] [place] [address] PCP - General Internal Medicine 01/07/22 documented as of this encounter
--- OUTSIDE RECORDS SUMMARY | 2023-06-01 04:05 | External Medical Summary ---
Author Name UNSPECIFIED Address Unknown Organization [facility] History of Encounters Reason for Assessment: [facility]charge [facility] Inpatient Facility where the patient been admitted: No inpatient facility admission Discharge Disposition: Patient remained in the community (without formal assistive services) Functional Assessment When Dyspneic: With moderate exerti on (e.g., while dressing, using commode or bedpan, walking distances less than 20 feet) Bowel Incontinence Frequency: Very rarel y or never has bowel incontinence Cognitive and Behavioral and Psychiatric Symptoms: None Current Ability: Bathing: With the use o f devices, is able to bathe self in shower or tub independently, including getting in and out of the tub/shower. Current Ability: Ambulation: Requires us e of a two-handed device (e.g., walker or crutches) to walk alone on a level surface and/or requires human supervision or assistance to negotiate stairs or steps or uneven surfaces. Current: Management Of Oral Medications: Able to independently take the correct oral medication(s) and proper dosage(s) at the correct time
--- OUTSIDE RECORDS SUMMARY | 2023-06-01 04:05 | External Medical Summary | Summary of Care ---
Author Name Unknown Organization [facility] Address [address] [place] [address] Phone [phone] Care Team Providers Care Sugar Cane Planting Equipment Operator Name Role Phone Lexii Andujar DO Primary Care Provider [phone] Reason for Visit * Reason Onset Date Comments Medication Refill 05/20/2023 Encounter Details Date Type Department Care Team Description 05/20/2023 Refill Family Practice [address] [place] [address] [place] [phone] Lexii Andujar DO [address] [place], [place] [id number] Chronic diastolic congestive heart failure (HCC) Allergies Active Allergy Reactions Severity Noted [...] as of this encounter (statuses as of 05/20/2023) Medications Medication Sig Dispensed Refills Start Date [...] hemoglobin A1c goal of less than 8.0% ([facility]) Take 1 Tablet (500 mg) by mouth [...] MOUTH AT BEDTIME 30 Tablet 02/10/2023 Active Baclofen 10 MG Oral [...] mellitus with hemoglobin A1c goal of 7.0%-8.0% ([facility]) INJECT 55 UNITS UNDER THE SKIN IN THE EVENING 60 mL 3 05/16/2023 Active NovoLOG FlexPen 100 UNIT/ML Subcutaneous Solution Pen-injector (insulin aspart)Indications: Type 2 diabetes mellitus with hemoglobin A1c goal of 7.0%-8.0% ([facility]) Inject 25-30 units with meals + sliding scale 1 units for every 25 units BG > 150. 150 mL 3 05/16/2023 Active Furosemide 40 MG Oral Tablet (Lasix)Indications: Chronic diastolic congestive heart failure (HCC) TAKE 1 AND 1/2 TABLETS BY MOUTH IN THE MORNING AND AT BEDTIME 84 Tablet 5 05/20/2023 Active Furosemide 40 MG Oral Tablet (Lasix)Indications: Chronic diastolic congestive heart failure (HCC) TAKE 1 AND 1/2 TABLETS BY MOUTH IN THE MORNING AND AT BEDTIME 84 Tablet 4 02/10/2023 05/20/20 Discontinu ed(Refill) Hospital, Clinic, or Other Facility [...] as of this encounter (statuses as of 05/20/2023) Active Problems Problem Noted Date Type 2 [...] 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/31/2021 Atherosclerosis of [place] coronary arter 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 12/31/2021 [...] as of this encounter (statuses as of 05/20/2023) Resolved Problems Problem Noted Date Resolved Date [...] as of this encounter (statuses as of 05/20/2023) Immunizations Name Administration Dates Next Due COVID-19 mRNA, LNP-s, No Pre serve, 2-Dose Series (CheckInPage) 01/08/2021,12/18/2020 COVID-19, LNP-s, No Preserve , Navarro-sucrose, Ages 12+ (Pfizer) 2022,10/01/2021 Pneumococcal Conjugate Vacci ne, 20-valent ([id number]) 03/12/2022 Pneumococcal Polysaccharide PPV23 (Pneumovax) 08/22/2009,06/15/2006 Season [...] encounter Miscellaneous Notes * Telephone Encounter - Corinne Parekh RPh - 05/20/2023 9:03 PM EDTSigned Prescriptions: Disp Refills Furosemide 40 MG Oral Tablet (Lasix) 84 Tab*5 Sig: TAKE 1 AND 1/2 TABLETS BY MOUTH IN THE MORNING AND AT BEDTIMEAuthorizing Provider: LEXII ANDUJAR User: Walker PAREKH Prescriptions: Disp Refills DULoxetine HCl 60 MG Oral Capsule Delayed *30 Cap*5 Sig: Take 1 Capsule by mouth in the morning. Take with 30mg cap to equal 90mg daily.Refused By: [place] PAREKH for Refusal: Too soon * Telephone Encounter - ELISSA Snider - 05/20/2023 2:06 PM EDT Request came from [facility] Pending Prescriptions: Disp Refills DULoxetine HCl 60 MG Oral Capsule Delayed*30 Cap*5 Sig: Take 1 Capsule by mouth in the morning. Take with 30mg cap to equal 90mg daily. Furosemide 40 MG Oral Tablet (Lasix) 84 Tab*4 Last Visit: 05/09/2023 (in office), 02/28/2023 (telemedicine) Next Visit: 07/11/2023 Last date the medication was ordered Patient Active Problem List Diagnosis Code Dyslipidemia E78.5 Postsurgical hypothyroidism E89.0 ELISSA (obstructive sleep apnea) G47.33 Venous insufficiency I87.2 Essential hypertension with goal blood pressure less than 140/90 I10 History of pulmonary embolus (PE) Z86.711 Statin intolerance Z78.[address] [place] [address] Z95.828 Fibromyalgia M79.7 Abnormality of gait R26.9 Restless legs syndrome G25.81 Gastroesophageal reflux disease with esophagitis K21.00 Morbid obesity with BMI of 50.0-59.9, adult ([facility]) E66.01, Z68.43 Controlled substance agreement signed Z79.899 Lumbar radiculopathy M54.16 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 3b chronic kidney disease ([facility]) I13.0, I50.32, N18.32 Hyperparathyroidism, secondary renal ([facility]) N25.81 Vasculitis ([facility]) I77.6 Primary osteoarthritis of left knee M17.12 Spinal stenosis of lumbar region without neurogenic claudication M48.061 Heparin 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) ([facility]) D75.829 Atherosclerosis of [place] coronary arter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 I25.10 Carotid artery stenosis, asymptomatic, right I65.21 Encounter for long-term (current) use of other medications Z79.899 Type 2 diabetes mellitus with stage 3b chronic kidney disease ([facility]) E11.22, N18.32 Type 2 diabetes mellitus with hemoglobin A1c goal of less than 8.0% ([facility]) E11.9 Recurrent deep vein thrombosis (DVT) of both lower extremities ([facility]) I82.403 Chronic hypoxemic respiratory failure ([facility]) J96.11 Chronic kidney disease, stage 3b ([facility]) N18.32 ILD (interstitial lung disease) ([facility]) J84.9 Moderate episode of recurrent major depressive disorder ([facility]) F33.1 Primary osteoarthritis of both knees M17.0 Type 2 diabetes mellitus with stage 3b chronic kidney disease, with long-term current use of insulin ([facility]) E11.22, N18.32, Z79.4 Anxiety state F41.1 Sacroiliitis, not elsewhere classified ([facility]) M46.1 Labs: Lab Results Component Value Date/Time CREATININE - [facility] 1.6 (H) 03/17/2023 12:37 PM CREATININE - [facility] 2.0 (H) 05/06/2020 08:46 AM CREATININE JOHNNY 50 09/04/2018 02:27 PM CREATININE JOHNNY - [facility] 32 11/29/2022 12:08 PM CREATININE, RANDOM URINE - [facility] 70 11/01/2022 02:18 PM CREATININE, RANDOM URINE - [facility] 52 12/24/2019 07:28 AM CREATININE-OUTSIDE LAB 1.54 (A) 12/26/2021 12:00 AM Lab Results Component Value Date/Time POTASSIUM - [facility] 4.0 03/17/2023 12:37 PM POTASSIUM - [facility] 4.0 05/06/2020 08:46 AM POTASSIUM-OUTSIDE LAB 3.6 12/26/2021 12:00 AM Lab Results Component Value Date/Time TSH - [facility] 1.10 11/01/2022 02:13 PM TSH - [facility] 5.35 (H) 05/06/2020 08:46 AM TSH - OUTSIDE LAB 1.960 02/26/2019 12:00 AM Lab Results Component Value Date/Time LDL CHOLESTEROL (CALCULATED) - [facility] 120 07/02/2022 03:11 PM LDL CHOLESTEROL (CALCULATED) - [facility] UNINTERPRETABLE RESULT 03/14/2019 01:54 PM LDL CHOLESTEROL (CALCULATED) - [facility] 111 08/01/2018 08:29 AM LDL CHOLESTEROL (DIRECT MEASURE) - [facility] 126 03/14/2019 01:54 PM LDL CHOLESTEROL (DIRECT MEASURE) - [facility] NOT APPLICABLE 08/01/2018 08:29 AM LDL CHOLESTEROL (DIRECT MEASURE) - [facility] 109 07/14/2017 12:35 PM LDL CHOLESTEROL (DIRECT MEASURE) - [facility] 119 10/28/2016 01:24 PM Lab Results Component Value Date/Time ALT - [facility] 17 03/17/2023 12:37 PM ALT - [facility] 27 05/06/2020 08:46 AM ALT-OUTSIDE LAB 31 05/21/2017 12:00 AM Hemoglobin AIC Results: Lab Results Component Value Date/Time HEMOGLOBIN A1C - [facility] 7.7 (H) 02/11/2023 11:31 AM HEMOGLOBIN A1C - [facility] 6.9 (H) 11/01/2022 02:13 PM HEMOGLOBIN A1C - [facility] 7.6 (H) 05/12/2022 03:04 PM HEMOGLOBIN A1C - [facility] 7.3 (H) 01/23/2020 11:11 AM HEMOGLOBIN A1C - [facility] 8.3 (H) 11/07/2019 03:04 PM HEMOGLOBIN A1C - [facility] 9.4 (H) 08/09/2019 11:02 AM documented in this encounter Plan of Treatment Upcoming Encounters Date Type Specialty Care Team Description 05/25/2023 Home Visit [facility] Vera Capellan RN [address] [place] [address] 06/17/2023 Office Visit Orthopedics Andrea Paez PA-C [address] [place] [address] 07/11/2023 Office Visit Family Medicine Lexii Andujar, DO [address] [place] [address] 07/12/2023 Telemedicine [facility] Lucia Garcia CRNP [address] [facility] [place] [address] Jeanette Whiteside, Community Health Retouching Operator [address] [place] [address] 08/08/2023 Nurse Only [employer], Nurse Annual Wellness Visit [address] [place] [address] Scheduled Procedures Name Priority Associated Diagnoses Date/Ti [...] Additional history exists CKD PHOS USE SMARTSET 07979 02/12/202401/24, 01/07/2022, 03/12/2021, Additional history exists CKD HGB USE SMARTSET 47798 03/17/202403/17, 03/17/2023, 11/01/2022, Additional history exists Mammogram [...] as of this encounter Visit Diagnoses Diagnosis Chronic diastolic congestive heart failure (HCC) Chronic diastolic heart failure documented in this encounter Advance Directives Documents on File Type Date Recorded Patient Scientific Artist Expl anation POLST 03/19/2020 4:25 PM POLST [...] the patient have Health Care Power of Foundry Finisher? No Healthcare Agents on File Name Relationship Healthcare Agent Relationship Communication Lexii Camp Other - (no specific identity) Health Care Power of Foundry Finisher Princess Allen Other - (no specific identity) Health Care Power of Foundry Finisher Care Teams Sugar Cane Planting Equipment Operator Relationship Specialty Start Date End Date Lexii Andujar, DO [address] [place] [address] PCP - General Internal Medicine 01/07/22 documented as of this encounter
--- OUTSIDE RECORDS SUMMARY | 2023-06-01 04:05 | External Medical Summary | Summary of Care ---
Author Name Unknown Organization [facility] Address [address] [place] [address] Phone [phone] Care Team Providers Care Case Briefer Name Role Phone ZiaandrewsGaldino DO Primary Care Provider [phone] Reason for Visit * Reason Onset Date Comments Appointment 05/19/2023 Encounter Details Date Type Department Care Team Description 05/19/2023 Telephone [facility], [facility] [address] [facility] [place] [address] Services, Scheduling [address] [place] [address] Appointment (///) Allergies Active Allergy Reactions Severity Noted Date [...] as of this encounter (statuses as of 05/19/2023) Medications Medication Sig Dispensed Refills Start Date End Date Status DEMIAN BISWAS LANCETS 33G MISC Check blood sugars 3-4 [...] hemoglobin A1c goal of less than 8.0% ([facility]) Take 1 Tablet (500 mg) by mouth [...] NYHA class 1 and CKD stage 3 ([facility]),Chronic diastolic congestive heart failure (HCC) TAKE 1 [...] OR OTHER MEDICATIONS 100 Tablet 1 08/31/2022 Active clonazePAM 0.5 MG Oral Tablet (KlonoPIN)Indication [...] Active traMADol HCl 50 MG Oral Tablet (Ultram)Indications: Lumbar radiculopathy,Primar y osteoarthritis of left knee Take 1 Tablet by mouth every 8 hours as needed for Pain, Severe. 90 Tablet 0 05/09/2023 Active Tresiba FlexTouch 100 UNIT/ML Subcutaneous Solution Pen-injector (Insulin Degludec)Indications :Type 2 diabetes mellitus with hemoglobin A1c goal of 7.0%-8.0% ([facility]) INJECT 55 UNITS UNDER THE SKIN IN THE EVENING 60 mL 3 05/16/2023 Active NovoLOG FlexPen 100 UNIT/ML Subcutaneous Solution Pen-injector (insulin aspart)Indications:T ype 2 diabetes mellitus with hemoglobin A1c goal of 7.0%-8.0% ([facility]) Inject 25-30 units with meals + sliding scale 1 units for every 25 units BG > 150. 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 Atherosclerosis of [place] coronary arter 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 12/31/2021 [...] as of this encounter (statuses as of 05/19/2023) Resolved Problems Problem Noted Date Resolved Date [...] as of this encounter (statuses as of 05/19/2023) Immunizations Name Administration Dates Next Due COVID-19 mRNA, LNP-s, No Pre serve, 2-Dose Series ([employer]) 01/08/2021,12/18/2020 COVID-19, LNP-s, No Preserve , Navarro-sucrose, Ages 12+ (Pfizer) 2022,10/01/2021 Pneumococcal Conjugate Vacci ne, 20-valent ([id number]) 03/12/2022 Pneumococcal Polysaccharide PPV23 (Pneumovax) 08/22/2009,06/15/2006 Season [...] encounter Miscellaneous Notes * Telephone Encounter - ELISSA Echols - 05/19/2023 12:47 PM EDT Per Request to schedule 07/07 week telemed.. Called s/w pt she advised 07/12 at 9:30am is a good date and time. documented in this encounter Plan of Treatment Upcoming Encounters Date Type Specialty Care Team Description 05/25/2023 Home Visit [facility] Vera Capellan RN [address] [place] [id number] 06/17/2023 Office Visit Orthopedics Andrea Paez PA-C [address] [place] [address] 07/11/2023 Office Visit Family Medicine Galdino Andujar, DO [address] [place] [address] 07/12/2023 Telemedicine [facility] Lucia Garcia CRNP [address] [place] [address] Jeanette Whiteside, [facility] [employer] [address] [place] [address] 08/08/2023 Nurse Only [employer], Nurse Annual Wellness Visit [address] [facility], [place] [address] Scheduled Procedures Name Priority Associated Diagnoses Date/Ti [...] Additional history exists CKD PHOS USE SMARTSET 28144 02/12/202401/24, 01/07/2022, 03/12/2021, Additional history exists CKD HGB USE SMARTSET 67985 03/17/202403/17, 03/17/2023, 11/01/2022, Additional history exists Mammogram [...] Not on filedocumented as of this encounter Advance Directives Documents on File Type Date Recorded 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 No Healthcare Agents on File Name Relationship Healthcare Agent Relationship Communication Galdino Camp Other - (no specific identity) Health Care Power of Asset Availability Leader Princess Allen Other - (no specific identity) Health Care Power of Asset Availability Leader Care Teams Case Briefer Relationship Specialty Start Date End Date Galdino Andujar, DO [address] [place], [place] [id number] PCP - General Internal Medicine 01/07/22 documented as of this encounter
--- OUTSIDE RECORDS SUMMARY | 2023-06-01 04:05 | External Medical Summary | Summary of Care ---
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 Mechanic Name Role Phone Galdino Andujar DO Primary Care Provider [phone] Reason for Visit * Reason Comments Follow Up Encounter Details Date Type Department Care Team Description 05/09/2023 Office Visit Family Practice [address] [place] [address] Galdino Andujar DO [address] [place] [address] 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 3b chronic kidney disease ([facility])*; Type 2 diabetes mellitus with stage 3b chronic kidney disease, with long-term current use of insulin ([facility]); Postsurgical hypothyroidism; Dyslipidemia; Statin intolerance; Fibromyalgia; Abnormality of gait; Restless legs syndrome; Gastroesophageal reflux disease with esophagitis without hemorrhage; Hyperparathyroidism, secondary renal (HCC); Atherosclerosis of pokagon coronary artery of pokagon heart without angina pectoris; Anxiety state; Recurrent deep vein thrombosis (DVT) of both lower extremities ([facility]); Moderate episode of recurrent major depressive disorder ([facility]); Chronic hypoxemic respiratory failure ([facility]); Lumbar radiculopathy; Primary osteoarthritis of left knee; DM type 2 nursing care encounter ([facility]) Allergies Active Allergy Reactions Severity Noted Date [...] as of this encounter (statuses as of 05/09/2023) Medications Medication Sig Dispensed Refills Start Date [...] goal of less than 8.0% ([facility]) Take 1 Tablet (500 mg) by mouth [...] 1 and CKD stage 3 ([facility]),Chronic diastolic congestive heart failure (HCC) TAKE 1 [...] before bedtime. 120 Capsule 5 03/15/2023 Active Tresiba FlexTouch 100 UNIT/ML Subcutaneous Solution Pen-injector (Insulin Degludec)Indication s:Type 2 diabetes mellitus with hemoglobin A1c goal of 7.0%-8.0% ([facility]) INJECT 58 UNITS UNDER THE SKIN IN THE EVENING 60 mL 3 03/15/2023 Active Potassium Chloride Ayleen ER 20 MEQ Oral Tablet Extended ReleaseIndications: 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, NYHA class 1 and CKD stage 3 ([facility]),Chronic diastolic congestive heart failure ([facility]) TAKE 1 TABLET BY MOUTH IN THE [...] 1 Each 0 03/18/2023 Active Potassium Chloride Aylene ER 20 MEQ Oral Tablet Extended Release [...] hemoglobin A1c goal of 7.0%-8.0% ([facility]) Inject 40-45 units with meals + sliding [...] Pain, Severe. 90 Tablet 0 05/09/2023 Active traMADol HCl 50 MG Oral Tablet (Ultram)Indications :Lumbar radiculopathy,Prima ry osteoarthritis of left knee TAKE 1 TABLET BY MOUTH EVERY 8 HOURS NEEDED FOR SEVERE PAIN 90 Tablet 0 02/10/2023 05/09/20 23 Discontinu ed(Refill) Hospital, Clinic, or Other [...] as of this encounter (statuses as of 05/09/2023) Active Problems Problem Noted Date Type 2 [...] 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/31/2021 Atherosclerosis of pokagon coronary arter 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 12/31/2021 [...] as of this encounter (statuses as of 05/09/2023) Resolved Problems Problem Noted Date Resolved Date Food insecurity 03/07/2023 04/07/2023 Overview: Per [facility] Protocol Food insecurity 11/08/2022 12/08/2022 Overview: Per [facility] Protocol Type 2 diabetes mellitus wit h diabetic chronic kidney disease 12/31/2021 07/27/2022 Last Assessment & Plan: Last hgba1c 7.6. 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 020 02/2023 Acute deep vein thrombosis ( DVT) [...] as of this encounter (statuses as of 05/09/2023) Immunizations Name Administration Dates Next Due COVID-19 mRNA, LNP-s, No Pre serve, 2-Dose Series ([place]) 01/08/2021,12/18/2020 COVID-19, LNP-s, No Preserve , Navarro-sucrose, Ages 12+ (Pfizer) 2022,10/01/2021 Pneumococcal Conjugate Vacci ne, 20-valent (Xviysuo26) 03/12/2022 Pneumococcal Polysaccharide PPV23 (Pneumovax) 08/22/2009,06/15/2006 Seasonal [...] Passive Smoke Exposure: Past Smokeless Tobacco: Never Tobacco Cessation:Counseling Given: Yes Alcohol Use Standard Drinks/Week Comments Not Currently [...] Date Recorded Female 11/07/2019 2:21 PM E Job Start Date Occupation Industry Not on file Not on file Not on file documented as of this encounter Last Filed Vital Signs Vital Sign Reading Time Taken Comments Blood Pressure 132/64 05/09/2023 2:28 PM EDT Pulse 81 05/09/2023 2:28 PM EDT Temperature 36.6 C (97.9 F) 05/09/2023 2:28 PM ED T Respiratory Rate - - Oxygen Saturation 100% 05/09/2023 2:28 PM EDT Inhaled Oxygen Concentration - - Weight 138.3 kg (304 lb 14.4 oz) 05/09/2023 2:28 PM EDT Height - - Body Mass Index 50.74 05/04/2023 10:46 AM EDT documented in this encounter Patient Instructions * Patient Instructions* Chasity Del Toro, PRODUCE INSPECTOR - 05/09/2023 2:28 PM EDT Images from the original note were not included. Dear Stephanie Camp, The care of your Diabetes is very important to us. A yearly diabetic eye exam is important to protect your vision. If youre getting an eye exam done outside of [facility] please tell your Eye Doctor to fax or mail us the results of your Diabetic Eye Exam at your next visit. Our Address and Fax Number are listed below to help. Thank you for helping us to improve your Diabetes Care Our Office Address and Fax Number: Galdino Andujar, DO Family Practice [address] [address] Diabetic Retinopathy: Evaluating Your Eyes Diabetic retinopathy is a condition that happens when diabetes damages blood vessels in the rear ofthe eye. It can lead to vision loss. To help catch it early, have a complete dilated eye exam at least once a year. During the exam, the eye healthcare provider will review your medical history, examine your eyes, and check your vision. Women who are and have pre-existing type 1 or type 2 diabetes have an increased risk of retinopathy. Women with diabetes should have an eye exam before or in the first trimester. They should continue to be monitored every trimester and for 1 year after delivery, depending on the severity of the retinopathy. The retina is the light-sensitive part of the eye that allows you to see. High blood sugar can damage blood vessels of the retina and cause them to leak or bleed. This damage can lead to abnormal blood vessel growth. This condition is called diabetic retinopathy. You may not have symptoms early in the disease. Later, there may be floaters, blurred vision, or poor night vision. There may also be partial or complete vision loss. Early cases of diabetic retinopathy can be treated by carefully controlling blood sugar, blood pressure, and cholesterol. Surgery or laser treatments may help restore lost vision. Laser surgery can shrink abnormal blood vessels or close ones that are leaking. Medicines injected in the eye can help decrease swelling of the retina. Home care Take all medicines, including insulin or oral diabetic medicine, exactly as prescribed. Follow the diet advised by your healthcare provider. If you have high cholesterol, follow a low-fat, low-cholesterol diet. Monitor blood sugars as advised. Try to achieve your ideal weight. If you smoke, quit smoking. Tobacco use worsens the effect of diabetes on your blood vessels. If you have high blood pressure, consider buying an automatic blood pressure machine. These are available at most pharmacies. Use this to monitor your blood pressure. Report your blood pressure readings to your healthcare provider. Exercise regularly. Follow-up care Follow up with your healthcare provider, or as advised. You must have a complete eye exam at least once a year, more often if needed. Untreated diabetic retinopathy can lead to complete loss of vision. Occupational therapists can help you adapt to any vision loss you have, including learning techniques to safely administer insulin. When to seek medical advice Call your healthcare provider right away if any of these occur. Increasing blurriness or any sudden changes in your vision Sudden flashes of light inside your eye New floaters (small dots or strings that seem to be moving across your field of vision) Eye pain, redness, or discharge from your eyelid New dark spots appearing in your field of vision Halos around lights Dimness of vision Partial or complete loss of vision Women with diabetes should have a complete eye exam before becoming , or as soon as possible when they find out they are . Retinopathy sometimes worsens during . Your eye exam Your eye healthcare provider uses an eye chart and other tools to check your vision. Then he or sheexamines your eyes for signs of disease. You are given eye drops to widen (dilate) your pupils. Youmay have one or more of the following tests: Tonometry to measure fluid pressure inside the eye. Slit lamp exam to allow the healthcare provider to view the structures of your eye. Ultrasound to create an image of the eye using sound waves. Ultrasound may be used if blood is found in the clear gel that fills the eye (vitreous). Ocular coherence tomography (OCT) to create an image of the retina using light waves. This showsif there is fluid leaking into certain parts of the eye. It can also measure the thickness of the retina. Fluorescein angiography This test may be done to check the health of the inside lining of the eye (retina). It also checks the tiny blood vessels (capillaries) that carry blood to the retina. During the test: Photographs are taken of the retina. A dye is then injected into the bloodstream through the arm or hand. The dye travels to the capillaries in the eye. More photographs are taken of the retina. The dye causes the capillaries to stand out on the photographs. You may feel brief nausea during the procedure. For a few hours after the test, your skin, eyes, and urine may appear yellow. Talk with your healthcare provider for more information about this test. Date Last Reviewed: 02/25/201619999783-4145 [employer]. [address] [place] [address]. All rights reserved. This information is not intended as a substitute for professional medical care. Always follow your healthcare professional's instructions. documented in this encounter Progress Notes * Galdino Andujar, - 05/09/2023 2:56 PM EDT SUBJECTIVE: Stephanie Camp is a 68 year old female. Chief Complaint Patient presents with Follow Up HPI: Patient is a 68 year old female with a history of DM type II, CKD stage III, Diastolic CHF, chronichypoxic respiratory failure, HTN, recurrent DVT, IVC filter, hyperlipidemia, statin intolerance, GERD, lumbar disc disease, restless leg syndrome, sleep apnea on CPAP, heparin induced thrombocytopenia, and ambulatory dysfunction that is seen for follow up. Left SI joint injection was done n 05/04/2023. The patient is unable to walk and has continued significant pain bilateral knee pain. Chronic shortness of breath is unchanged. No chest pain is present. Weight is down 5 more pounds. Patient had mobility evaluation at [facility]. Will need to obtain report. Patient Active Problem List Diagnosis Code Dyslipidemia E78.5 Postsurgical hypothyroidism E89.0 ELISSA (obstructive sleep apnea) G47.33 Venous insufficiency I87.2 Essential hypertension with goal blood pressure less than 140/90 I10 History of pulmonary embolus (PE) Z86.711 Statin intolerance Z78.[address] Z95.828 Fibromyalgia M79.7 Abnormality of gait R26.9 Restless legs syndrome G25.81 Gastroesophageal reflux disease with esophagitis K21.00 Morbid obesity with BMI of 50.0-59.9, adult ([facility]) E66.01, Z68.43 Controlled substance agreement signed Z79.899 Lumbar radiculopathy M54.16 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 viuns5s chronic kidney disease ([facility]) I13.0, I50.32, N18.32 Hyperparathyroidism, secondary renal ([facility]) N25.81 Vasculitis ([facility]) I77.6 Primary osteoarthritis of left knee M17.12 Spinal stenosis of lumbar region without neurogenic claudication M48.061 Heparin 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) ([facility]) D75.829 Atherosclerosis of pokagon coronary arter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 I25.10 Carotid artery stenosis, asymptomatic, right I65.21 Encounter for long-term (current) use of other medications Z79.899 Type 2 diabetes mellitus with stage 3b chronic kidney disease ([facility]) E11.22, N18.32 Type 2 diabetes mellitus with hemoglobin A1c goal of less than 8.0% ([facility]) E11.9 Recurrent deep vein thrombosis (DVT) of both lower extremities ([facility]) I82.403 Chronic hypoxemic respiratory failure ([facility]) J96.11 Chronic kidney disease, stage 3b ([facility]) N18.32 ILD (interstitial lung disease) ([facility]) J84.9 Moderate episode of recurrent major depressive disorder ([facility]) F33.1 Primary osteoarthritis of both knees M17.0 Type 2 diabetes mellitus with stage 3b chronic kidney disease, with long- term current use of insulin ([facility]) E11.22, N18.32, Z79.4 Anxiety state F41.1 Sacroiliitis, not elsewhere classified ([facility]) M46.1 Current Outpatient Medications Medication Sig Dispense Refill oxygen GAS Use 3 L/min(Oxygen) as directed continuous. CPAP every night at bedtime. Cholecalciferol 25 MCG (1000 UT) Oral Capsule Take 1 Capsule (1,000 Units) by mouth in the morning. 30 Capsule 5 metFORMIN HCl ER 500 MG Oral Tablet Extended Release 24 Hour (Glucophage XR) Take 1 Tablet (500mg) by mouth in the morning. 30 Tablet 5 rOPINIRole HCl 2 MG Oral Tablet (Requip) Take 1 Tablet (2 mg) by mouth at bedtime. 30 Tablet 5 Dicyclomine HCl 20 MG Oral Tablet (Bentyl) Take 1 Tablet (20 mg) by mouth 4 times a day as needed for Cramping. 180 Tablet 3 Meclizine HCl 12.5 MG Oral Tablet (Antivert) Take 1 Tablet (12.5 mg) by mouth 3 times a day as needed for Dizziness. 30 Tablet 1 metOLazone 2.5 MG Oral Tablet (Zaroxolyn) Take 1 Tablet (2.5 mg) by mouth daily as needed (leg edema). Do not take unless instructed by provider 15 Tablet 5 Ondansetron HCl 4 MG Oral Tablet Take 1 Tablet (4 mg) by mouth every 6 hours as needed for Nausea. 90 Tablet 6 Magnesium Oxide 400 MG Oral Tablet TAKE 1 TABLET BY MOUTH IN THE MORNING AND AT BEDTIME 60 Tablet 5 Eliquis 5 MG Oral Tablet (Apixaban) TAKE 1 TABLET BY MOUTH IN THE MORNING AND AT BEDTIME 60 Tablet 5 Levothyroxine Sodium 50 MCG Oral Tablet (Levoxyl) TAKE 1 TABLET BY MOUTH ONCE DAILY IN THE MORNING 30 Tablet 5 Senna-Time S 8.6-50 MG Oral Tablet (senna-docusate) TAKE 1 TABLET BY MOUTH IN THE MORNING AND AT BEDTIME 60 Tablet 5 traZODone HCl 100 MG Oral Tablet (Desyrel) TAKE 1 TABLET BY MOUTH AT BEDTIME 30 Tablet 5 Furosemide 40 MG Oral Tablet (Lasix) TAKE 1 AND 1/2 TABLETS BY MOUTH IN THE MORNING AND AT BEDTIME 84 Tablet 4 Baclofen 10 MG Oral Tablet (Lioresal) Take 1 Tablet by mouth 2 times a day as needed. Gabapentin 300 MG Oral Capsule (Neurontin) Take 2 Capsules by mouth in the morning and 2 Capsules at noon and 2 Capsules before bedtime. 120 Capsule 5 Tresiba FlexTouch 100 UNIT/ML Subcutaneous Solution Pen-injector (Insulin Degludec) INJECT 58 UNITS UNDER THE SKIN IN THE EVENING 60 mL 3 Potassium Chloride Ayleen ER 20 MEQ Oral Tablet Extended Release TAKE 1 TABLET BY MOUTH IN THE MORNING AND AT BEDTIME 60 Tablet 5 Omeprazole 20 MG Oral Capsule Delayed Release (PriLOSEC) TAKE 1 CAPSULE BY MOUTH ONCE DAILY IN THE MORNING 30 Capsule 3 Acetaminophen 500 MG Oral Tablet (Tylenol) Take 2 Tablets by mouth in the morning and 2 Tabletsat noon and 2 Tablets before bedtime. 100 Tablet 0 Potassium Chloride Ayleen ER 20 MEQ Oral Tablet Extended Release Take only as directed with diuretic titration plan 30 Tablet 0 Levothyroxine Sodium 200 MCG Oral Tablet (Levoxyl) TAKE 1 TABLET BY MOUTH DAILY AT LEAST 30 MINUTES PRIOR TO FIRST MEAL OF THE DAY OR OTHER MEDICATIONS 100 Tablet 1 clonazePAM 0.5 MG Oral Tablet (KlonoPIN) TAKE 1 TABLET BY MOUTH IN THE MORNING AND AT BEDTIME 60 Tablet 0 Docusate Sodium 100 MG Oral Capsule (Colace) Take 1 Capsule by mouth in the morning and 1 Capsule before bedtime. Mounjaro 2.5 MG/0.5ML Subcutaneous Solution Pen-injector (Tirzepatide) Inject 2.5 mg under the skin once a week. 2 mL 1 Clobetasol Propionate 0.05 % External Ointment (Temovate) Apply topically to affected area 2 times a day. Apply to leg rash 60 g 0 NovoLOG FlexPen 100 UNIT/ML Subcutaneous Solution Pen-injector (insulin aspart) Inject 40-45 units with meals + sliding scale 1 units for every 25 units BG > 150. 150 mL 3 DULoxetine HCl 30 MG Oral Capsule Delayed Release Particles (Cymbalta) Take 1 Capsule by mouth in the morning. Do not cut, crush or chew Takes with a cymbalta 60 mg to = cymbalta 90 mg daily. 30 Capsule 5 DULoxetine HCl 60 MG Oral Capsule Delayed Release Particles (Cymbalta) Take 1 Capsule by mouth in the morning. Take with 30mg cap to equal 90mg daily. 30 Capsule 5 oxyCODONE HCl 5 MG Oral Tablet (Oxy IR) Take 1 Tablet by mouth every 6 hours as needed for Pain, Severe. 45 Tablet 0 traMADol HCl 50 MG Oral Tablet (Ultram) Take 1 Tablet by mouth every 8 hours as needed for Pain, Severe. 90 Tablet 0 ONETOUCH DELICA LANCETS 33G MISC Check blood sugars 3-4 times daily 180 Each 5 BD Pen Needle Short U/F 31G X 8 MM (Insulin Pen Needle) use five times daily 500 Each 3 OneTouch Ultra Blue In Vitro Strip (Glucose Blood) Check sugars 3-4 times daily, E11.9 400 Strip 3 DIURETIC TITRATION PLAN If no improvement on day 3, contact heart failure managing provider. 1 Each 0 Current Facility-Administered Medications Medication Dose Route Frequency Provider Last Rate Last Admin Albuterol Sulfate (Proventil) (2.5 MG/3ML) 0.083% inhalation solution 2.5 mg 2.5 mg Nebulizer PRN Bryon Winter PA-C Albuterol Sulfate (Proventil) (5 MG/ML) 0.5% *conc* inhalation solution 2.5 mg 2.5 mg NebulizerPRN Bryon Winter PA-C The patient's medication list was reviewed and updated as needed. Past Medical History: Diagnosis Date ELSIE (acute kidney injury) ([facility]) 06/12/2018 Allergic rhinitis due to other allergen Chronic hypoxemic respiratory failure ([facility]) 01/07/2022 Diverticulosis of colon 01/28/2006 Essential hypertension with goal blood pressure less than 140/90 02/22/2014 ELLIE (generalized anxiety disorder) 09/13/2009 Goiter Frank filter in place 08/19/2014 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[facility]) 08/22/2009 History of pulmonary embolus (PE) 07/16/2014 HTN, goal below 140/90 Impetigo 09/27/2018 Obesity, BMI not known Perforation of intestine ([facility]) 1996 COLON -- 1996 Pneumonia in aspergillosis(484.6) 09/14/2009 Recurrent deep vein thrombosis (DVT) of both lower extremities ([facility]) 01/07/2022 Sleep apnea, obstructive Spinal stenosis of lumbar region without neurogenic claudication 07/15/2020 Spontaneous pneumothorax 09/14/2009 Statin intolerance 07/16/2014 Type 2 diabetes mellitus with hemoglobin A1c goal of less than 8.0% ([facility]) 01/07/2022 Past Surgical History: Procedure Laterality Date ARTHROPLASTY KNEE TOTAL Right 07/24/14 R COLONOSCOPY, DIAGNOSTIC (RECTUM) 02/18/2016 normal, repeat 10 yrs/[facility] COLONOSCOPY, GI REFERRAL OP 01/28/06 diverticulosis--repeat 10 years INCISION OF [place], PLANNED 06/03/2011 TRACHEOSTOMY PLANNED performed by DANNY HOLDER at [facility] INJECT DX/THER SUBSTANCE INTERLAMINAR LUMBAR/SACRAL W IMAGE GUIDE 05/26/2020 INJECTION SPINE LUMBAR OR SACRAL performed by Raj Ahn DO at OR [facility] INJECT DX/THER SUBSTANCE INTERLAMINAR LUMBAR/SACRAL W IMAGE GUIDE 05/14/2021 INJECTION SPINE LUMBAR OR SACRAL performed by Raj Ahn DO at OR [facility] INJECT DX/THER SUBSTANCE INTERLAMINAR LUMBAR/SACRAL W IMAGE GUIDE 08/13/2021 INJECTION SPINE LUMBAR OR SACRAL performed by Raj Ahn DO at OR [facility] KNEE ARTHROSCOPY/DEBRIDEMENT 07/[address] PERMANENT GASTROSTOMY TUBE 09/06/09 GASTROSTOMY WITH CONSTUCTION GASTRIC TUBE performed by AMADOU NUNEZ at [facility] REMOVAL OF THYROID GLAND 06/15/2011 THYROIDECTOMY INCLUDING SUBSTERNAL THYROID CERVICAL APPROACH performed by DANNY HOLDER at OR [facility] REMOVE GALLBLADDER 09/06/09 CHOLECYSTECTOMY performed by AMADOU NUNEZ at OR [facility] REPAIR RECURRENT INCISIONAL HERNIA 1998 REVISION OF COLOSTOMY, SIMPLE 1998 SACROILIAC JOINT INJECT W/GUIDANCE 07/28/2020 INJECTION SACROILIAC JOINT performed by Raj Ahn DO at OR [facility] SACROILIAC JOINT INJECT W/GUIDANCE 03/03/2022 INJECTION SACROILIAC JOINT performed by Raj Ahn DO at OR [facility] SACROILIAC JOINT INJECT W/GUIDANCE 05/04/2023 INJECTION SACROILIAC JOINT performed by Raj Ahn DO at OR [facility] SUTURE, LARGE INTESTINE W/COLOSTOMY 1996 perforation R colon with colostomy VENA CAVA FILTER/LIGATION/CLIP 08/19/09 Frank filter placement through the right femoral 08/19/[address] Lerma at [facility] Review of patient's allergies indicates: Allergen Reactions Bupropion Other reaction(s): Recurrent falls as per patient Jardiance [Empagliflozin] Other (Please comment) 3 yeast infections in 6 weeks after starting Codeine hallucination Farxiga [Dapagliflozin] Other (Please comment) Yeast infection Hay Fever [Pollen] Heparin Heparin Induced Thrombocytopenia Hydrocodone Neuro complications (Please comment) Morphine And Related Hallucinations Tetanus Toxoid Other (Please comment) Passed out Review of Systems Constitutional: Positive for fatigue. Negative for appetite change and unexpected weight change. Respiratory: Positive for shortness of breath. Negative for cough and wheezing. Cardiovascular: Positive for leg swelling. Negative for chest pain and palpitations. Gastrointestinal: Negative for abdominal pain, blood in stool, constipation, diarrhea, nausea and vomiting. Genitourinary: Negative for dysuria and hematuria. Musculoskeletal: Positive for arthralgias, back pain and gait problem. Neurological: Negative for dizziness, syncope and headaches. Psychiatric/Behavioral: Negative for confusion, decreased concentration, dysphoric mood and sleep disturbance. The patient is not nervous/anxious. OBJECTIVE: BP 132/64 | Pulse 81 | Temp 36.6 C (97.9 F) | Wt (!) 138.3 kg (304 lb 14.4 oz) | LMP 03/11/2003| SpO2 100% | BMI 50.74 kg/m | BSA 2.52 m Physical Exam Vitals and nursing note reviewed. Constitutional: General: She is not in acute distress. Appearance: She is not toxic-appearing. HENT: Head: Normocephalic and atraumatic. Cardiovascular: Rate and Rhythm: Normal rate and regular rhythm. Heart sounds: Normal heart sounds. No murmur heard. No gallop. Pulmonary: Effort: Pulmonary effort is normal. Breath sounds: Normal breath sounds. No wheezing, rhonchi or rales. Abdominal: General: Bowel sounds are normal. There is no distension. Palpations: Abdomen is soft. Tenderness: There is no abdominal tenderness. Musculoskeletal: Right lower leg: Edema present. Left lower leg: Edema present. Neurological: Mental Status: She is alert and oriented to person, place, and time. Mental status is at baseline. Motor: No weakness. Gait: Gait normal. Psychiatric: Mood and Affect: Mood normal. Behavior: Behavior normal. PLAN AND ASSESSMENT: 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 3b chronic kidney disease (HCC) (Primary) Continue Furosemide Type 2 diabetes mellitus with stage 3b chronic kidney disease, with long-term current use of insulin (HCC) Continue Mounjaro, Tresiba, and metformin Postsurgical hypothyroidism Continue Levothyroxine Dyslipidemia Statin intolerance Fibromyalgia Abnormality of gait Continue to use walker at all times Restless legs syndrome Gastroesophageal reflux disease with esophagitis without hemorrhage Hyperparathyroidism, secondary renal (HCC) Atherosclerosis of [place] coronary artery of [place] heart without angina pectoris Anxiety state Continue Clonazepam Recurrent deep vein thrombosis (DVT) of both lower extremities (HCC) Continue Apixaban Moderate episode of recurrent major depressive disorder (HCC) Continue Duloxetine, and Trazodone Chronic hypoxemic respiratory failure (HCC) Continue Oxygen Lumbar radiculopathy - traMADol HCl 50 MG Oral Tablet (Ultram); Take 1 Tablet by mouth every 8 hours as needed for Pain,Severe. Primary osteoarthritis of left knee - traMADol HCl 50 MG Oral Tablet (Ultram); Take 1 Tablet by mouth every 8 hours as needed for Pain,Severe. DM type 2 nursing care encounter (HCC) - TELEMEDICINE DIABETIC EYE Follow Up: Return in about 2 months (around 07/09/2023), or if symptoms worsen or fail to improve. Galdino Andujar DO 2:56 PM 05/09/2023 * Chasity Del Toro LPN - 05/09/2023 2:28 PM EDT The importance of having a yearly diabetic eye exam has been discussed with patient. Order and/or Referral placed along with patient instructions. Provider made aware. Chasity Del Toro LPN documented in this encounter Plan of Treatment Upcoming Encounters Date Type Specialty Care Team Description 05/25/2023 Home Visit [facility] [address] [facility] [address] 06/17/2023 Office Visit Orthopedics Andrea Paez PA-C [address] [place] [address] 07/11/2023 Office Visit Family Medicine Galdino Andujar DO [address] [place] [address] 08/08/2023 Nurse Only Ancillary College, Nurse Annual Wellness Visit [address] [place] [address] Scheduled Procedures Name Priority Associated Diagnoses Date/Ti me COLONOSCOPY FLEXIBLE PROXIMAL DIAGNOSTIC Recall Colon cancer screening Health Maintenance Due Date Last Done Comments Cologuard 2000 Fecal Occult Blood Test 2000 Sigmoidoscopy 2000 COVID-19 Vaccine (5 - Pfizer series) 06/08/2022 2022, 10/01/2021, 01/08/2021, Additional history exists Depression, Most Recent Score >= 10 (will fire each visit until score < 10) 04/15/2023 04/14/2023 Influenza Vaccine (FLU shot) (#1) 2023 06/18/2022, 07/20/2021, 06/13/2020, Additional history exists HbA1c 09/04/2023 03/05/2023, 01/24, 11/01/2022, Additional history exists GFR 09/16/2023 03/17/2023, 11/24, 11/01/2022, Additional history exists Albumin/Creatinine Ratio 11/01/2023 023, 01/07/2022, 05/24/2019, Additional history exists DIABETES-FOOT EXAM 11/01/2023 11/01/2022, 0 01/07/2022, 01/14/2021, Additional history exists TSH 11/01/2023 11/01/2022, 12/25, 12/25/2020, Additional history exists CKD PHOS USE SMARTSET 36480 02/12/202401/24, 01/07/2022, 03/12/2021, Additional history exists CKD HGB USE SMARTSET 37835 03/17/202403/17, 03/17/2023, 11/01/2022, Additional history exists Mammogram 04/21/2024 04/21/2023, 01/24, 10/01/2020, Additional history exists DIABETES-EYE EXAM 05/09/2024 05/09/2023, , 04/14/2021, Additional history exists Colonoscopy 02/17/2026 02/18/2016, 01/25, 01/28/2006, Additional history [...] Not on filedocumented as of this encounter Procedures Procedure Name Priority Date/Time Associated Diagnosis Comments TELEMEDICINE DIABETIC EYE Routine 05/09/2023 DM type 2 nursing care encounter (HCC) documented in this encounter Results * TELEMEDICINE DIABETIC EYE (05/09/2023) 05/09/2023 Galdino Andujar DO DIGITAL PHOTOGRAPHY documented in this encounter Visit Diagnoses Diagnosis 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 3b chronic kidney disease (HCC)- Primary Type 2 diabetes mellitus with stage 3b chronic kidney disease, with long-term current use of insulin (HCC) Postsurgical hypothyroidism Dyslipidemia Other and unspecified hyperlipidemia Statin intolerance Other drug allergy Fibromyalgia Mylagia and myositis, unspecified Abnormality of gait Restless legs syndrome Restless legs syndrome (RLS) Gastroesophageal reflux disease with esophagitis without hemorrhage Hyperparathyroidism, secondary renal (HCC) Secondary hyperparathyroidism (of renal origin) Atherosclerosis of [place] coronary artery of [place] heart without angina pectoris Anxiety state Anxiety state, unspecified Recurrent deep vein thrombosis (DVT) of both lower extremities (HCC) Moderate episode of recurrent major depressive disorder (HCC) Chronic hypoxemic respiratory failure (HCC) Chronic respiratory failure Lumbar radiculopathy Thoracic or lumbosacral neuritis or radiculitis, unspecified Primary osteoarthritis of left knee Primary localized osteoarthrosis, lower leg DM type 2 nursing care encounter (HCC) Type II or unspecified type diabetes mellitus without mention of complication, not stated as uncontrolled documented in this encounter Advance Directives Documents on File Type Date Recorded Patient Forestry Biology Specialist Expl anation POLST 03/19/2020 4:25 PM [...] the patient have Health Care Power of Oil Well Fishing Tool Technician? No Healthcare Agents on File Name Relationship Healthcare Agent Relationship Communication Galdino Camp Other - (no specific identity) Health Care Power of Oil Well Fishing Tool Technician Princess Other - (no specific identity) Health Care Power of Oil Well Fishing Tool Technician Care Teams Soft Water Mechanic Relationship Specialty Start Date End Date Galdino Andujar, DO [address] [place] [address] PCP - General Internal Medicine 01/07/22 documented as of this encounter
--- OUTSIDE RECORDS SUMMARY | 2023-06-01 04:05 | External Medical Summary | Summary of Care ---
Author Name Unknown Organization [facility] Address [address] [place] [address] Phone [phone] Care Team Providers Care Neurodiagnostic Technician Name Role Phone Galdino Andujar DO Primary Care Provider Reason for Visit * Reason Comments eRx-Medication Refill Encounter Details Date Type Department Care Team Description 05/20/2023 Refill [facility], [facility] [address] [facility] [address] Galdino Andujar DO [address] [place] [address] Allergies Active Allergy Reactions Severity Noted Date [...] as of this encounter (statuses as of 05/22/2023) Medications Medication Sig Dispensed Refills Start Date [...] daily, E11.9 400 Strip 3 2 Active metFORMIN HCl ER 500 MG Oral Tablet Extended Release 24 Hour (Glucophage XR)Indications:Type 2 diabetes mellitus with hemoglobin A1c goal of less than 8.0% ([facility]) Take 1 Tablet (500 mg) by mouth in the morning. 30 Tablet 5 2 Active rOPINIRole HCl 2 MG Oral [...] NYHA class 1 and CKD stage 3 ([facility]),Chronic diastolic congestive heart failure (HCC) TAKE 1 [...] 1 Capsule before bedtime. 0 3 Active Mounjaro 2.5 MG/0.5ML Subcutaneous Solution Pen-injector (Tirzepatide) Inject 2.5 mg under the skin once a week. 2 mL 1 3 Active Clobetasol Propionate 0.05 % External Ointment (Temovate)Indicatio ns:Dermatitis Apply topically to affected area 2 times a day. Apply to leg rash 60 g 0 3 Active DULoxetine HCl 30 MG Oral Capsule Delayed Release Particles (Cymbalta) Take 1 Capsule by mouth in the morning. Do not cut, crush or chew Takes with a cymbalta 60 mg to = cymbalta 90 mg daily. 30 Capsule 5 3 Active DULoxetine HCl 60 MG Oral [...] mellitus with hemoglobin A1c goal of 7.0%-8.0% ([facility]) INJECT 55 UNITS UNDER THE SKIN IN THE EVENING 60 mL 3 3 Active NovoLOG FlexPen 100 UNIT/ML Subcutaneous Solution Pen-injector (insulin aspart)Indications: Type 2 diabetes mellitus with hemoglobin A1c goal of 7.0%-8.0% ([facility]) Inject 25-30 units with meals + sliding scale 1 units for every 25 units BG > 150. 150 mL 3 3 Active Cholecalciferol 25 MCG (1000 UT) Oral Capsule TAKE 1 TABLET BY MOUTH ONCE DAILY IN THE MORNING 30 Capsule 5 3 Active Cholecalciferol 25 MCG (1000 UT) Oral Capsule Take 1 Capsule (1,000 Units) by mouth in the morning. 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 TENOSYNOVITIS FOOT-ANKLE 12/26/2001 017 Goiter 01/13/2000 06/28/2011 BACKACHE NOS 08/26/1999 05/24/2017 OBESITY, UNSPECIFIED 08/26/1999 12/23/2009 Overview: Per Obesity Taxonomy Perforation of intestine 017 Overview: COLON Diverticulitis documented as of this encounter (statuses as of 05/22/2023) Immunizations Name Administration Dates Next Due COVID-19 mRNA, LNP-s, No Pre serve, 2-Dose Series (ZAP) 01/08/2021,12/18/2020 COVID-19, LNP-s, No Preserve , Navarro-sucrose, Ages 12+ (Pfizer) 2022,10/01/2021 Pneumococcal Conjugate Vacci ne, 20-valent ([id number]) 03/12/2022 Pneumococcal Polysaccharide PPV23 (Pneumovax) 08/22/2009,06/15/2006 Season [...] encounter Miscellaneous Notes * Telephone Encounter - TATIANA Pro - 05/22/2023 7:11 AM EDTSigned Prescriptions: Disp Refills Cholecalciferol 25 MCG (1000 UT) Oral Caps*30 Cap*5 Sig: TAKE 1 TABLET BY MOUTH ONCE DAILY IN THE MORNING Authorizing Provider: LUCIA GARCIA * Telephone Encounter - Ingrid Rene LPN - 05/20/2023 5:08 PM EDTPending Prescriptions: Disp Refills Cholecalciferol 25 MCG (1000 UT) Oral Caps*30 Cap*5 Sig: TAKE 1 TABLET BY MOUTH ONCE DAILY IN THE MORNING * Telephone Encounter - Ingrid Rene LPN - 05/20/2023 5:07 PM EDT Did you pend patient's preferred pharmacy and medication before forwarding?yes Pharmacy: [facility] [address] [facility] Pending Prescriptions: Disp Refills Cholecalciferol 25 MCG (1000 UT) Oral Cap*30 Cap*5 Sig: TAKE 1 TABLET BY MOUTH ONCE DAILY IN THE MORNING Last Visit: Visit date not found (in office), 03/18/2023 (telemedicine) Next Visit: 05/25/2023 If no future appointments scheduled, and last appointment is greater than a year ago, please schedule patient for a follow-up appointment Last date the medication was ordered: Is this request for a controlled substance?No [...] AM Ingrid Rene LPN [facility] 05/20/2023,5:07 PM * Telephone Encounter - Chloe Singletary RPh - 05/20/2023 4:20 PM EDT Pending Prescriptions: Disp Refills Cholecalciferol 25 MCG (1000 UT) Oral Caps*30 Cap*5 Sig: TAKE 1TABLET BY MOUTH ONCE DAILY IN THE MORNING documented in this encounter Plan of Treatment Upcoming Encounters Date Type Specialty Care Team Description 05/25/2023 Home Visit [facility] Vera Capellan RN [address] [place] [address] 06/17/2023 Office Visit Orthopedics Andrea Paez PA-C [address] [place] [address] 07/11/2023 Office Visit Family Medicine Galdino Andujar, DO [address] [place] [address] 07/12/2023 Telemedicine [facility] Lucia Garcia, TATIANA [address] [facility] [place] [address] Jeanette Whiteside, Community Health Civil Service Worker [address] [place] [address] 08/08/2023 Nurse Only [employer]illary College, Nurse Annual Wellness Visit [address] [place] [address] Scheduled Procedures Name Priority Associated Diagnoses Date/Ti [...] Additional history exists CKD PHOS USE SMARTSET 43154 02/12/202401/24, 01/07/2022, 03/12/2021, Additional history exists CKD HGB USE SMARTSET 92959 03/17/202403/17, 03/17/2023, 11/01/2022, Additional history exists Mammogram [...] Documents on File Type Date Recorded Patient Precision Devices Inspector/Tester Expl anation POLST 03/19/2020 4:25 PM POLST [...] the patient have Health Care Power of Freight Rate Specialist? No Healthcare Agents on File Name Relationship Healthcare Agent Relationship Communication Galdino Camp Other - (no specific identity) Health Care Power of Freight Rate Specialist Princess Allen Other - (no specific identity) Health Care Power of Freight Rate Specialist Care Teams Neurodiagnostic Technician Relationship Specialty Start Date End Date Galdino Andujar, DO [address] [place] [address] PCP - General Internal Medicine 01/07/22 documented as of this encounter
--- OUTSIDE RECORDS SUMMARY | 2023-06-01 04:05 | External Medical Summary | Summary of Care ---
Author Name Unknown Organization [facility] Address [address] [place] [address] Phone [phone] Care Team Providers Care Molder Sweep Name Role Phone Lexii Andujar DO Primary Care Provider [phone] Reason for Visit * Reason Comments eRx-Medication Refill Encounter Details Date Type Department Care Team Description 05/20/2023 Refill [facility] [address] [facility] [address] Lexii Andujar DO [address] [place] [address] Type 2 diabetes mellitus with hemoglobin A1c goal of less than 8.0% ([facility]) Allergies Active Allergy Reactions Severity Noted Date [...] hemoglobin A1c goal of less than 8.0% (HCC) TAKE 1 TABLET BY MOUTH ONCE DAILY IN THE MORNING 30 Tablet 5 3 Active Mounjaro 2.5 MG/0.5ML Subcutaneous Solution Pen-injector (Tirzepatide)Indica tions:Type 2 diabetes mellitus with hemoglobin A1c goal of less than 8.0% (HCC) Inject 2.5 mg under the skin once a week. 2 mL 1 3 Active metFORMIN HCl ER 500 MG Oral Tablet Extended Release 24 Hour (Glucophage XR)Indications:Type 2 diabetes mellitus with hemoglobin A1c goal of less than 8.0% (HCC) Take 1 Tablet (500 mg) by mouth in the morning. 30 Tablet 5 2 05/22/20 23 Discontinued Mounjaro 2.5 MG/0.5ML Subcutaneous Solution Pen-injector (Tirzepatide) Inject 2.5 mg under the skin once a week. 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/31/2021 Atherosclerosis of [place] coronary arter 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 12/31/2021 [...] mRNA, LNP-s, No Pre serve, 2-Dose Series (Draker) 01/08/2021,12/18/2020 COVID-19, LNP-s, No Preserve , Navarro-sucrose, Ages 12+ (Pfizer) 2022,10/01/2021 Pneumococcal Conjugate Vacci ne, 20-valent ([id number]) 03/12/2022 Pneumococcal Polysaccharide PPV23 (Pneumovax) 08/22/2009,06/15/2006 Season [...] Telephone Encounter - Lexii Andujar DO - 05/22/2023 4:30 PM EDTSigned Prescriptions: Disp Refills metFORMIN HCl ER 500 MG Oral Tablet Extend*30 Tab*5 Sig: TAKE 1 TABLET BY MOUTH ONCE DAILY IN THE MORNINGAuthorizing Provider: LEXII ANDUJARjaro 2.5 MG/0.5MLSubcutaneous Solutio*2 mL 1 Sig: Inject 2.5 mg under the skin once a week.Authorizing Provider: LEXII ANDUJAR * Telephone Encounter - TATIANA Pro - 05/22/2023 7:11 AM EDTPending Prescriptions: Disp Refills metFORMIN HCl ER 500 MG Oral Tablet Extend*30 Tab*5 Sig: TAKE 1 TABLET BY MOUTH ONCE DAILY IN THE MORNING Mounjaro 2.5 MG/0.5ML Subcutaneous Solutio*2 mL 1 Sig: Inject 2.5 mg under the skin once a week. * Telephone Encounter - Ingrid Rene LPN - 05/20/2023 5:04 PM EDTPending Prescriptions: Disp Refills metFORMIN HCl ER 500 MG Oral Tablet Extend*30 Tab*5 Sig: TAKE 1 TABLET BY MOUTH ONCE DAILY IN THE MORNING Mounjaro 2.5 MG/0.5ML Subcutaneous Solutio*2 mL 1 Sig: Inject 2.5 mg under the skin once a week. * Telephone Encounter - Ingrid Rene LPN - 05/20/2023 5:01 PM EDT Did you pend patient's preferred pharmacy and medication before forwarding?yes Pharmacy: [facility] [address] Pending Prescriptions: Disp Refills metFORMIN HCl ER 500 MG Oral Tablet Exten*30 Tab*5 Sig: TAKE 1 TABLET BY MOUTH ONCE DAILY IN THE MORNING Mounjaro 2.5 MG/0.5ML Subcutaneous Soluti*2 mL 1 Sig: Inject 2.5 mg under the skin once a week. Last Visit: Visit date not found (in [...] AM Ingrid Rene LPN [facility] 05/20/2023,5:01 PM * Telephone Encounter - Becki Marrero [facility] - 05/20/2023 1:53 PM EDTPending Prescriptions: Disp Refills metFORMIN HCl ER 500 MG Oral Tablet Extend*30 Tab*5 Sig: TAKE 1TABLET BY MOUTH ONCE DAILY IN THE MORNING Mounjaro 2.5 MG/0.5ML Subcutaneous Solutio*2 mL 1 Sig: Inject 2.5 mg under the skin once a week. documented in this encounter Plan of Treatment Upcoming Encounters Date Type Specialty Care Team Description 05/25/2023 Home Visit [facility] Vera Capellan RN [address] [place] [address] 06/17/2023 Office Visit Orthopedics Andrea Paez PA-C [address] [place] [address] 07/11/2023 Office Visit Family Medicine Lexii Andujar, DO [address] [place] [address] 07/12/2023 Telemedicine [facility] Lucia Garcia CRNP [address] [place] [address] Jeanette Whiteside, Community Health Toll Test Worker [address] [place] [address] 08/08/2023 Nurse Only Ancillary College, Nurse Annual Wellness Visit [address] [facility] [place] [address] Scheduled Procedures Name Priority Associated Diagnoses Date/Ti [...] Additional history exists CKD PHOS USE SMARTSET 72544 02/12/202401/24, 01/07/2022, 03/12/2021, Additional history exists CKD HGB USE SMARTSET 49174 03/17/202403/17, 03/17/2023, 11/01/2022, Additional history exists Mammogram [...] hemoglobin A1c goal of less than 8.0% (HCC) documented in this encounter Advance Directives Documents on File Type Date Recorded Patient Agricultural Labor Camp Manager Expl anation POLST 03/19/2020 4:25 PM POLST [...] the patient have Health Care Power of Director Manufacturing Engineering? No Healthcare Agents on File Name Relationship Healthcare Agent Relationship Communication Lexii Camp Other - (no specific identity) Health Care Power of Director Manufacturing Engineering Princess Allen Other - (no specific identity) Health Care Power of Director Manufacturing Engineering Care Teams Molder Sweep Relationship Specialty Start Date End Date Lexii Andujar, [address] [place] [address] PCP - General Internal Medicine 01/07/22 documented as of this encounter
--- OUTSIDE RECORDS SUMMARY | 2023-06-01 04:06 | External Medical Summary | Summary of Care ---
Author Name Unknown Organization [facility] Address [address] [place] [address] Phone [phone] Care Team Providers Care Supervisor Sterile Processing Name Role Phone Lexii Andujar DO Primary Care Provider [phone] Reason for Visit * Reason Onset Date Comments Medication Refill 05/02/2023 Encounter Details Date Type Department Care Team Description 05/02/2023 Refill Family Practice [address] [place] [address] [place] [phone] Lexii Andujar DO [address] [place] [address] Allergies Active Allergy Reactions Severity Noted Date [...] as of this encounter (statuses as of 05/02/2023) Medications Medication Sig Dispensed Refills Start Date [...] A1c goal of less than 8.0% ([facility]) Take 1 Tablet (500 mg) [...] AT BEDTIME 30 Tablet 5 02/10/2023 Active traMADol HCl 50 MG Oral Tablet (Ultram)Indications :Lumbar radiculopathy,Prima ry osteoarthritis of left knee TAKE 1 TABLET BY MOUTH EVERY 8 HOURS NEEDED FOR SEVERE PAIN 90 Tablet 0 02/10/2023 Active Furosemide 40 MG Oral Tablet [...] with hemoglobin A1c goal of 7.0%-8.0% ([facility]) INJECT 58 UNITS UNDER THE SKIN IN THE EVENING 60 mL 03/15/2023 Active Potassium Chloride Ayleen ER 20 MEQ Oral Tablet Extended ReleaseIndications: 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 45 Tablet 0 05/02/2023 Active oxyCODONE HCl 5 MG Oral Tablet Abuse-Deterrent Take 5 mg by mouth every 6 hours as needed for Pain, Severe. 0 05/02/20 Discontinu ed(Refill) Hospital, Clinic, or Other Facility [...] as of this encounter (statuses as of 05/02/2023) Active Problems Problem Noted Date Type 2 [...] essive disorder 08/11/2022 Last Assessment & Plan: Followed by pcp, plan to transition from duloxetine to sertraline. Admits to depression d/t uncontrolled pain. Denies suicidal ideation. 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 Stable. -continue Eliquis -likely no Wili or beta-faviola due to hypotension. Statin intolerance Carotid artery stenosis, asymptomatic, r ight 12/31/2021 Last Assessment & Plan: MRI neck this coming week F/u scheduled with Dr. Tang Spinal stenosis of lumbar region without neurogenic claudication 07/15/2020 Last Assessment & Plan: Plan as noted above Primary osteoarthritis of left knee 10/28 Hyperparathyroidism, [...] as of this encounter (statuses as of 05/02/2023) Resolved Problems Problem Noted Date Resolved Date [...] as of this encounter (statuses as of 05/02/2023) Immunizations Name Administration Dates Next Due COVID-19 mRNA, LNP-s, No Pre serve, 2-Dose Series (Pfizer) 01/08/2021,12/18/2020 COVID-19, LNP-s, No Preserve , Navarro-sucrose, Ages 12+ (Pfizer) 2022,10/01/2021 Pneumococcal Conjugate Vacci ne, 20-valent ([id number]) 03/12/2022 Pneumococcal Polysaccharide PPV23 (Pneumovax) 08/22/2009,06/15/2006 Seasonal [...] got money to buy more. Never true 04/14/2023 Within the past 12 months, t he food you bought just didn't last and you didn't have money to get more. Never true 04/14/2023 Sex Assigned at Date Recorded Female 11/07/2019 2:[address] Job Start Date Occupation Industry Not on file Not on file Not on file documented as of this encounter Miscellaneous Notes * Telephone Encounter - Lexii Andujar DO - 05/02/2023 2:44 PM EDTSigned Prescriptions: Disp Refills oxyCODONE HCl 5 MG Oral Tablet Abuse-Deter*45 Tab*0 Sig: Take 5 mg by mouth every 6 hours as needed for Pain, Severe.Authorizing Provider: LEXII ANDUJAR * Telephone Encounter - Lexii Andujar DO - 05/02/2023 2:42 PM EDT I have reviewed the patients controlled substance dispensing history in the Prescription Drug Monitoring Program in compliance with the [facility] regulations before prescribing a controlled substance. Last Tox Screen Results: Results for orders placed or performed in [...] results can be found in Results Review. Medication is due * Telephone Encounter - Shira Gross LPN - 05/02/2023 1:23 PM EDT Pended, did not add quantity Thank you * Telephone Encounter - Clementine Gonzalez CPhT - 05/02/2023 1:07 PM EDT pt calling requesting the following medication below that is listed as "Historical". The following information was provided: Medication Name: oxycodone Strength: 5mg Directions: Take 5 mg by mouth every 6 hours as needed for Pain, Severe Preferred Quantity: n/a Previous Prescriber: vera capellan Preferred Pharmacy: [facility] [address] Please review and approve if appropriate. Thank you, Clementine Gonzalez CPhT [facility] ([facility]) (Formerly Telepharm[facility]) 05/02/2023, 1:07 PM documented in this encounter Plan of Treatment Upcoming Encounters Date Type Specialty Care Team Description 05/03/2023 Home Visit [facility] Lucia Garcia CRNP [address] [place] [address] Jeanette Whiteside, Community Health Airplane Tube Builder [address] [place] [address] 05/04/2023 Hospital Encounter Surgery Raj Ahn, DO [address] [place] [address] 05/04/2023 Surgery Surgery Raj Ahn, DO [address] [place] [address] INJECTION SACROILIAC JOINT 05/09/2023 Office Visit Family Medicine Lexii Andujar, DO [address] [place] [address] 05/16/2023 Office Visit Family Medicine Lexii Andujar, DO [address] [place] [address] 05/25/2023 Home Visit [facility] Vera Capellan RN [address] [place] [address] 06/17/2023 Office Visit Orthopedics Andrea Paez PA-C [address] [place], [place] [address] [address] 08/08/2023 Nurse Only [facility], Nurse Annual Wellness Visit [address] [facility] [address] [place] [address] Scheduled Procedures Name Priority Associated Diagnoses Date/Ti me INJECTION SACROILIAC JOINT Inflammation of sacroiliac joint (HCC) 05/04/2023 11:00 AM EDT COLONOSCOPY FLEXIBLE PROXIMAL DIAGNOSTIC Recall Colon cancer screening Health Maintenance Due Date Last Done Comments Cologuard 2000 Fecal Occult Blood Test 2000 Sigmoidoscopy 2000 COVID-19 Vaccine (5 - Pfizer series) 06/08/2022 2022, 10/01/2021, 01/08/2021, Additional history exists Depression, Most Recent Score >= 10 (will fire each visit until score < 10) 04/15/2023 04/14/2023 DIABETES-EYE EXAM 05/24/2023 05/24/2022, , 04/07/2020, Additional history exists Influenza Vaccine (FLU shot) (#1) 2023 06/18/2022, 07/20/2021, 06/13/2020, Additional history exists HbA1c 09/04/2023 03/05/2023, 01/24, 11/01/2022, Additional history exists GFR 09/16/2023 03/17/2023, 11/24, 11/01/2022, Additional history exists Albumin/Creatinine Ratio 11/01/2023 023, 01/07/2022, 05/24/2019, Additional history exists DIABETES-FOOT EXAM 11/01/2023 11/01/2022, 0 01/07/2022, 01/14/2021, Additional history exists TSH 11/01/2023 11/01/2022, 12/25, 12/25/2020, Additional history exists CKD PHOS USE SMARTSET 12653 02/12/202401/24, 01/07/2022, 03/12/2021, Additional history exists CKD HGB USE SMARTSET 30004 03/17/202403/17, 03/17/2023, 11/01/2022, Additional history exists Mammogram 04/21/2024 04/21/2023, 01/24, 10/01/2020, Additional history exists Colonoscopy 02/17/2026 02/18/2016, 01/25, [...] Documents on File Type Date Recorded Patient Fast Food Supervisor Expl anation POLST 03/19/2020 4:25 PM POLST [...] the patient have Health Care Power of Video Intern? No Healthcare Agents on File Name Relationship Healthcare Agent Relationship Communication Lexii Camp Other - (no specific identity) Health Care Power of Video Intern Princess Allen Other - (no specific identity) Health Care Power of Video Intern Care Teams Supervisor Sterile Processing Relationship Specialty Start Date End Date Lexii Andujar, DO [address] [place] [address] PCP - General Internal Medicine 01/07/22 documented as of this encounter
--- OUTSIDE RECORDS SUMMARY | 2023-06-01 04:06 | External Medical Summary | Summary of Care ---
Author Name Unknown Organization [facility] Address [address] [place] [address] Phone [phone] Care Team Providers Care Escort Service Attendant Name Role Phone Lexii Andujar DO Primary Care Provider [phone] Reason for Visit * Reason Onset Date Comments Medication Refill 04/22/2023 Encounter Details Date Type Department Care Team Description 04/22/2023 Refill Family Practice [address], [place] [address] [place] [phone] Lexii Andujar DO [address] [place] [address] Allergies Active Allergy Reactions Severity Noted Date [...] as of this encounter (statuses as of 04/22/2023) Medications Medication Sig Dispensed Refills Start Date [...] hemoglobin A1c goal of less than 8.0% ([facility]) Take 1 Tablet (500 mg) [...] mellitus with hemoglobin A1c goal of 7.0%-8.0% ([facility]) INJECT 58 UNITS UNDER THE SKIN IN THE EVENING 60 mL 03/15/2023 Active Potassium Chloride Ayleen ER 20 MEQ Oral Tablet Extended ReleaseIndications: 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, NYHA class 1 and CKD stage 3 ([facility]),Chronic diastolic congestive heart failure (HCC) [...] AT BEDTIME 60 Tablet 0 04/10/2023 Active oxyCODONE HCl 5 MG Oral Tablet Abuse-Deterrent Take 5 mg by mouth every 6 hours as needed for Pain, Severe. 0 Active Docusate Sodium 100 MG Oral Capsule [...] mellitus with hemoglobin A1c goal of 7.0%-8.0% ([facility]) Inject 40-45 units with meals [...] 90mg daily. 30 Capsule 5 04/22/2023 Active DULoxetine HCl 30 MG Oral Capsule Delayed Release Particles (Cymbalta) Take 1 Capsule by mouth in the morning. Do not cut, crush or chew. 30 Capsule 5 03/18/2023 04/22/20 Discontinu ed(Refill) DULoxetine HCl 60 MG Oral Capsule Delayed Release Particles (Cymbalta) Take 1 Capsule by mouth in the morning. Take with 30mg cap to equal 90mg daily. 0 04/22/20 Discontinu ed(Refill) Hospital, Clinic, or Other Facility [...] as of this encounter (statuses as of 04/22/2023) Active Problems Problem Noted Date Type 2 [...] 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/31/2021 Atherosclerosis of [place] coronary arter 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 12/31/2021 [...] "I look ") Medication Regimen: o Beta Faviloa Therapy: No beta-faviola secondary to --unknown o [...] Assessment & Plan: Home PT to start [place] filter in place 08/19/2014 History of pulmonary [...] as of this encounter (statuses as of 04/22/2023) Resolved Problems Problem Noted Date Resolved Date Food insecurity 03/07/2023 04/07/2023 Overview: Per [facility] Protocol Food insecurity 11/08/2022 12/08/2022 Overview: Per [facility] Protocol Type 2 diabetes mellitus wit h diabetic chronic kidney disease 12/31/2021 07/27/2022 Last Assessment & Plan: Last hgba1c 7.6. 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 02/02/2023 Acute deep vein thrombosis ( DVT) of [...] as of this encounter (statuses as of 04/22/2023) Immunizations Name Administration Dates Next Due COVID-19 mRNA, LNP-s, No Pre serve, 2-Dose Series ([employer]) 01/08/2021,12/18/2020 COVID-19, LNP-s, No Preserve , Navarro-sucrose, Ages 12+ (Pfizer) 2022,10/01/2021 Pneumococcal Conjugate Vacci ne, 20-valent ([id number]) 03/12/2022 Pneumococcal Polysaccharide PPV23 (Pneumovax) 08/22/2009,06/15/2006 Seasonal [...] Telephone Encounter - Lexii Andujar DO - 04/22/2023 2:37 PM EDTSigned Prescriptions: Disp Refills DULoxetine HCl 30 MG Oral Capsule Delayed *30 Cap*5 Sig: Take 1 Capsule by mouth in the morning. Do not cut, crush or chew Takes with a cymbalta 60 mg to = [id number] mg daily.Authorizing Provider: LEXII ANDUJAR User: SHIRA GROSS DULoxetine HCl 60 MG Oral Capsule Delayed *30 Cap*5 Sig: Take 1 Capsule by mouth in the morning. Take with 30mg cap to equal 90mg daily.Authorizing Provider: LEXII ANDUJAR * Telephone Encounter - Shria Gross LPN - 04/22/2023 2:07 PM EDTPending Prescriptions: Disp Refills DULoxetine HCl 60 MG Oral Capsule Delayed *30 Cap*5 Sig: Take 1 Capsule by mouth in the morning. Take with 30mg cap to equal 90mg daily. Signed Prescriptions: Disp Refills DULoxetine HCl 30 MG Oral Capsule Delayed *30 Cap*5 Sig: Take 1 Capsule by mouth in the morning. Do not cut, crush or chew Takes with a cymbalta 60 mg to = cymbalta 90 mg daily. Authorizing Provider: LEXII ANDUJAR Ordering User: SHIRA GROSS * Telephone Encounter - Shira Gross LPN - 04/22/2023 2:04 PM EDT Called pharmacy to confirm refill needed on corrected dose. Confirmed. * Telephone Encounter - Irina Perrin, ELISSA - 04/22/2023 1:40 PM EDT Received request from [facility] [place] Pending Prescriptions: Disp Refills DULoxetine HCl 30 MG Oral Capsule Delayed*30 Cap*5 Sig: Take 1 Capsule by mouth in the morning. Do not cut, crush or chew. Last Visit: 04/14/2023 (in office), 02/28/2023 (telemedicine) Next Visit: 05/09/2023 Last date the medication was ordered: Patient Active Problem List Diagnosis Code Dyslipidemia E78.5 Postsurgical hypothyroidism E89.0 ELISSA (obstructive sleep apnea) G47.33 Venous insufficiency I87.2 Essential hypertension with goal blood pressure less than 140/90 I10 History of pulmonary embolus (PE) Z86.711 Statin intolerance Z78.[address] Z95.828 Fibromyalgia M79.7 Abnormality of gait R26.9 Restless legs syndrome G25.81 Gastroesophageal reflux disease with esophagitis K21.00 Morbid obesity with BMI of 50.0-59.9, adult ([facility]) E66.01, Z68.43 Controlled substance agreement signed Z79.899 Lumbar radiculopathy M54.16 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 kgmci2e chronic kidney disease ([facility]) I13.0, I50.32, N18.32 Hyperparathyroidism, secondary renal ([facility]) N25.81 Vasculitis ([facility]) I77.6 Primary osteoarthritis of left knee M17.12 Spinal stenosis of lumbar region without neurogenic claudication M48.061 Heparin 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) ([facility]) D75.829 Atherosclerosis of [place] coronary arter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 I25.10 Carotid artery stenosis, asymptomatic, right I65.21 Encounter for long-term (current) use of other medications Z79.899 Type 2 diabetes mellitus with stage 3b chronic kidney disease ([facility]) E11.22, N18.32 Type 2 diabetes mellitus with hemoglobin A1c goal of less than 8.0% ([facility]) E11.9 Recurrent deep vein thrombosis (DVT) of both lower extremities ([facility]) I82.403 Chronic hypoxemic respiratory failure ([facility]) J96.11 Chronic kidney disease, stage 3b ([facility]) N18.32 ILD (interstitial lung disease) ([facility]) J84.9 Moderate episode of recurrent major depressive disorder ([facility]) F33.1 Primary osteoarthritis of both knees M17.0 Type 2 diabetes mellitus with stage 3b chronic kidney disease, with long- term current use of insulin ([facility]) E11.22, N18.32, Z79.4 Anxiety state F41.1 Sacroiliitis, not elsewhere classified ([facility]) M46.1 Labs: Lab Results Component Value Date/Time [...] Encounters Date Type Specialty Care Team Description 04/26/2023 Home Visit [facility] Vera Capellan RN [address] [place] [address] 05/03/2023 Home Visit [facility] Lucia Garcia CRNP [address] [place] [address] Jeanette Whiteside, [facility] Electromatic Typist [address] [facility] [address] 05/04/2023 Hospital Encounter Surgery Raj Ahn DO [address] [place] [address] 05/04/2023 Surgery Surgery Raj Ahn DO [address] [place] [address] INJECTION SACROILIAC JOINT 05/09/2023 Office Visit Family Medicine Lexii Andujar, DO [address] [facility] [place] [address] 05/16/2023 Office Visit Family Medicine Lexii Andujar, DO [address] [place] [address] 06/17/2023 Office Visit Orthopedics Andrea Paez PA-C [address] [place] [address] [place] [address] 08/08/2023 Nurse Only [facility], Nurse Annual Wellness Visit [address] [facility], [place] [address] Scheduled Procedures Name Priority Associated Diagnoses Date/Ti me INJECTION SACROILIAC JOINT Inflammation of sacroiliac joint (HCC) 05/04/2023 11:00 AM EDT COLONOSCOPY FLEXIBLE PROXIMAL DIAGNOSTIC Recall Colon cancer screening Health Maintenance Due Date Last Done Comments Cologuard 2000 Fecal Occult Blood Test 2000 Sigmoidoscopy 2000 COVID-19 Vaccine (5 - Pfizer series) 06/08/2022 2022, 10/01/2021, 01/08/2021, Additional history exists Mammogram 02/11/2023 02/11/2022, 0 02/2021, 07/10/2019, Additional history exists Depression, Most Recent Score [...] Additional history exists CKD PHOS USE SMARTSET 72943 02/12/202401/24, 01/07/2022, 03/12/2021, Additional history exists CKD HGB USE SMARTSET 18586 03/17/202403/17, 03/17/2023, 11/01/2022, Additional history exists Colonoscopy 02/17/2026 02/18/2016, 01/25, [...] Documents on File Type Date Recorded Patient Coat Padder Expl anation POLST 03/19/2020 4:25 PM POLST [...] the patient have Health Care Power of Electronic Equipment Set Up Operator? No Healthcare Agents on File Name Relationship Healthcare Agent Relationship Communication Lexii Camp Other - (no specific identity) Health Care Power of Electronic Equipment Set Up Operator Princess Other - (no specific identity) Health Care Power of Electronic Equipment Set Up Operator Care Teams Escort Service Attendant Relationship Specialty Start Date End Date Lexii Andujar, DO [address] [place] [address] PCP - General Internal Medicine 01/07/22 documented as of this encounter
--- OUTSIDE RECORDS SUMMARY | 2023-06-01 04:06 | External Medical Summary | Summary of Care ---
Author Name Unknown Organization [facility] Address [address] [place] [address] Phone [phone] Care Team Providers Care Agricultural Commodities Inspector Name Role Phone Lexii Andujar DO Primary Care Provider [phone] Reason for Visit * Reason Onset Date Comments Medication Refill 05/02/2023 Encounter Details Date Type Department Care Team Description 05/02/2023 Refill Family Practice [address] [place] [address] [place] [id number] Lexii Andujar DO [address] [place] [address] Allergies Active Allergy Reactions Severity Noted Date [...] daily, E11.9 400 Strip 3 2 Active Cholecalciferol 25 MCG (1000 UT) Oral Capsule Take 1 Capsule (1,000 Units) by mouth in the morning. 30 Capsule 5 2 Active metFORMIN HCl ER 500 MG Oral Tablet Extended Release 24 Hour (Glucophage XR)Indications:Typ e 2 diabetes mellitus with hemoglobin A1c goal of less than 8.0% ([facility]) Take 1 Tablet (500 mg) by mouth in the morning. 30 Tablet 5 2 Active rOPINIRole HCl 2 MG Oral Tablet (Requip)Indication s:Restless legs syndrome Take 1 Tablet (2 mg) by mouth at bedtime. 30 Tablet 5 2 Active Dicyclomine HCl 20 MG Oral Tablet (Bentyl)Indication s:Irritable bowel syndrome, unspecified type Take 1 Tablet (20 mg) by mouth 4 times a day as needed for Cramping. 180 Tablet 3 2 Active Meclizine HCl 12.5 MG Oral Tablet (Antivert)Indicati ons:Vertigo Take 1 Tablet (12.5 mg) by mouth 3 times a day as needed for Dizziness. 30 Tablet 1 2 Active metOLazone 2.5 MG Oral Tablet (Zaroxolyn) Take 1 Tablet (2.5 mg) by mouth daily as needed (leg edema). Do not take unless instructed by provider 15 Tablet 5 2 Active Ondansetron HCl 4 MG Oral TabletIndications: Vertigo Take 1 Tablet (4 mg) by mouth every 6 hours as needed for Nausea. 90 Tablet 6 2 Active Magnesium Oxide 400 MG Oral TabletIndications: Benign hypertensive heart and kidney disease with [...] Active Levothyroxine Sodium 50 MCG Oral Tablet (Levoxyl)Indicatio ns:Hyperparathyroi dism, secondary renal (HCC) TAKE 1 TABLET BY MOUTH ONCE DAILY IN THE MORNING 30 Tablet 5 3 Active Senna-Time S 8.6-50 MG Oral Tablet (senna-docusate) TAKE 1 TABLET BY MOUTH IN THE MORNING AND AT BEDTIME 60 Tablet 5 3 Active traZODone HCl 100 MG Oral Tablet (Desyrel)Indicatio ns:Primary insomnia TAKE 1 TABLET BY MOUTH AT BEDTIME 30 Tablet 5 3 Active traMADol HCl 50 MG Oral Tablet (Ultram)Indication s:Lumbar radiculopathy,Prim elif osteoarthritis of left knee TAKE 1 TABLET BY MOUTH EVERY 8 HOURS NEEDED FOR SEVERE PAIN 90 Tablet 0 3 Active Furosemide 40 MG Oral Tablet (Lasix)Indications :Chronic diastolic congestive heart failure (HCC) TAKE 1 AND 1/2 TABLETS BY MOUTH IN THE MORNING AND AT BEDTIME 84 Tablet 4 3 Active Baclofen 10 MG Oral Tablet (Lioresal) Take 1 Tablet by mouth 2 times a day as needed. 0 Active Gabapentin 300 MG Oral Capsule (Neurontin)Indicat ions:Fibromyalgia Take 2 Capsules by mouth in the morning and 2 Capsules at noon and 2 Capsules before bedtime. 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, NYHA class 1 and CKD stage 3 ([facility]),Chronic diastolic congestive heart failure (HCC) TAKE 1 TABLET BY MOUTH IN THE MORNING AND AT BEDTIME 60 Tablet 5 3 Active Omeprazole 20 MG Oral Capsule Delayed Release (PriLOSEC)Indicati ons:Gastroesophage al reflux disease with esophagitis without hemorrhage TAKE [...] Active Levothyroxine Sodium 200 MCG Oral Tablet (Levoxyl)Indicatio ns:Postsurgical hypothyroidism TAKE 1 TABLET BY MOUTH DAILY AT LEAST 30 MINUTES PRIOR TO FIRST MEAL OF THE DAY OR OTHER MEDICATIONS 100 Tablet 1 2 023 Active clonazePAM 0.5 MG Oral Tablet (KlonoPIN)Indicati ons:Restless legs syndrome,Anxiety state TAKE 1 TABLET BY [...] Active Clobetasol Propionate 0.05 % External Ointment (Temovate)Indicati ons:Dermatitis Apply topically to affected area 2 times a day. Apply to leg rash 60 g 0 3 Active NovoLOG FlexPen 100 UNIT/ML Subcutaneous Solution Pen-injector (insulin aspart)Indications :Type 2 diabetes mellitus with hemoglobin A1c goal of 7.0%-8.0% ([facility]) Inject 40-45 units with meals + sliding scale 1 units for every 25 units BG > 150. 150 mL 3 3 Active DULoxetine HCl 30 MG Oral [...] hours as needed for Pain, Severe. 0 023 Discontinued(Re fill) oxyCODONE HCl 5 MG Oral Tablet Abuse-Deterrent Take 5 mg by mouth every 6 hours as needed for Pain, Severe. 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 Atherosclerosis of [place] coronary arter 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 12/31/2021 [...] Assessment & Plan: Home PT to start [place] filter in place 08/19/2014 History of pulmonary [...] mRNA, LNP-s, No Pre serve, 2-Dose Series ([employer] 01/08/2021,12/18/2020 COVID-19, LNP-s, No Preserve , Navarro-sucrose, Ages 12+ (Pfizer) 2022,10/01/2021 Pneumococcal Conjugate Vacci ne, 20-valent ([id number]) 03/12/2022 Pneumococcal Polysaccharide PPV23 (Pneumovax) 08/22/2009,06/15/2006 Seasonal Influenza, Quadriva lent Hd (Fluzone Hd) 06/18/2022,07/20/2021 Seasonal Influenza, Quadriva lent, No Preserve, 6 Mons & Above, IM 07/23/2019,06/12/2018,07/14/2017 Seasonal Influenza, Quadriva lent, No Preserve, Adjuvanted, 65+ Yrs, IM 06/13/2020 Seasonal Influenza, Quadriva lent, No Preserve, IM 06/24/2016,07/24/2015 Seasonal Influenza, Split, I IV3, With Preserve, Inj 06/13/2014,07/07/2012,06/28/2011,06/15,08/01/2009,07/04/2008,08/14/2007 ,10/19/2006,08/07/2004,09/04/2002 Varicella Zoster Vaccine (Adult) 12/11/2015 Zoster Vaccine [...] as of this encounter Miscellaneous Notes * Addendum Note - Shira Gross LPN - 05/02/2023 3:13 PM EDTAddended by: SHIRA GROSS on: 05/02/2023 03:13 PM Modules accepted: Orders * Telephone Encounter - Lexii Andujar DO [...] Drug Monitoring Program in compliance with the [facility] regulations before prescribing a controlled substance. [...] n/a Previous Prescriber: vera capellan [facility] [address] Please review and approve if appropriate. Thank you, Clementine Gonzalez CPhT II Oil Furnace Installer [facility] ([facility]) (Formerly Telepharm[facility]) 05/02/2023, 1:07 PM documented in this encounter Plan of Treatment Upcoming Encounters Date Type Specialty Care Team Description 05/03/2023 Home Visit [facility] Lucia Garcia CRNP [address] [place] [address] Jeanette Whiteside, Community Health Design Engineering Specialist [address] [place] [address] 05/04/2023 Hospital Encounter Surgery Raj Ahn, [address] [place] [address] 05/04/2023 Surgery Surgery Raj Ahn, DO [address] [place] [address] INJECTION SACROILIAC JOINT 05/09/2023 Office Visit Family Medicine Lexii Andujar, DO [address] [place] [address] 05/16/2023 Office Visit Family Medicine Lexii Andujar, DO [address] [place] [address] 05/25/2023 Home Visit [facility] Vera Capellan RN [address] [place] [address] 06/17/2023 Office Visit Orthopedics Andrea Paez PA-C [address] [place] [address] 08/08/2023 Nurse Only [employer]illary [employer], Nurse Annual Wellness Visit [address] [facility], [place] [address] Scheduled Procedures Name Priority Associated Diagnoses Date/Ti [...] Additional history exists CKD PHOS USE SMARTSET 57496 02/12/202401/24, 01/07/2022, 03/12/2021, Additional history exists CKD HGB USE SMARTSET 13803 03/17/202403/17, 03/17/2023, 11/01/2022, Additional history exists Mammogram [...] Documents on File Type Date Recorded Patient Quill Machine Operator Expl anation POLST 03/19/2020 4:25 PM POLST [...] the patient have Health Care Power of Hotel Yardperson? No Healthcare Agents on File Name Relationship Healthcare Agent Relationship Communication Lexii Camp Other - (no specific identity) Health Care Power of Hotel Yardperson Princess Allen Other - (no specific identity) Health Care Power of Hotel Yardperson Care Teams Agricultural Commodities Inspector Relationship Specialty Start Date End Date Lexii Andujar, [address] [place] [address] PCP - General Internal Medicine 01/07/22 documented as of this encounter
--- OUTSIDE RECORDS SUMMARY | 2023-06-01 04:06 | External Medical Summary | Summary of Care ---
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] Procedures SACROILIAC JOINT INJECT W/GUIDANCE INJECTION SACROILIAC JOINT Referral ID Status Reason Start Date Expiration Date Visits Re quested Visits Authorized [id number] Encounter Details Date Type Department Care Team Description 05/04/2023 Hospital Encounter OR [facility], Operating Room [facility] [address] [place] [id number] CousinsRaj CallumDO [address] [place] [address] Allergies Active Allergy Reactions Severity Noted Date [...] as of this encounter (statuses as of 05/04/2023) Medications Medication Sig Dispensed Refills Start Date End Date Status DEMIAN BISWAS LANCETS 33G [facility] Check blood sugars 3-4 times daily 180 [...] AT BEDTIME 84 Tablet 4 3 Active Gabapentin 300 MG Oral Capsule (Neurontin)Indicat [...] Pain, Severe. 45 Tablet 0 3 Active Blood Glucose Monitoring Suppl ([employer] ULTRA 2) w/Device KIT Use to test BG values 1 Kit 0 0 023 Discontinued(Me dication List Clean Up) Levothyroxine Sodium 200 MCG Oral Tablet (Levoxyl)Indicatio ns:Postsurgical hypothyroidism TAKE ONE TABLET BY MOUTH IN THE MORNING AT LEAST 30 MINUTES PRIOR TO BREAKFAST OR OTHER MEDS 100 Tablet 1 2 022 Discontinued(Rita machuca prescription brought in as discontinued) NovoLOG FlexPen 100 UNIT/ML Subcutaneous Solution Pen-injector (insulin aspart)Indications :Type 2 diabetes mellitus with hemoglobin A1c goal of 7.0%-8.0% (HCC) Inject 40-45 units with meals + sliding scale 1 units for every 25 units BG > 150. 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/31/2021 Atherosclerosis of [place] coronary arter 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 12/31/2021 [...] as of this encounter (statuses as of 05/04/2023) Resolved Problems Problem Noted Date Resolved Date [...] as of this encounter (statuses as of 05/04/2023) Immunizations Name Administration Dates Next Due COVID-19 mRNA, LNP-s, No Pre serve, 2-Dose Series ([employer]) 01/08/2021,12/18/2020 COVID-19, LNP-s, No Preserve , Navarro-sucrose, Ages 12+ (Pfizer) 2022,10/01/2021 Pneumococcal Conjugate Vacci ne, 20-valent ([id number]) 03/12/2022 Pneumococcal Polysaccharide PPV23 (Pneumovax) 08/22/2009,06/15/2006 Seasonal [...] Sign Reading Time Taken Comments Blood Pressure 157/85 05/04/2023 11:06 AM EDT Pulse 83 05/04/2023 11:06 AM EDT Temperature 36.2 C (97.1 F) 05/04/2023 10:46 AM E DT Respiratory Rate 17 05/04/2023 11:06 AM EDT Oxygen Saturation 98% 05/04/2023 11:06 AM EDT Inhaled Oxygen Concentration - - Weight 140.2 kg (309 lb) 05/04/2023 10:46 AM EDT Height 165.1 cm (5' 5") 05/04/2023 10:46 AM EDT Body Mass Index 51.42 05/04/2023 10:46 AM EDT documented in this encounter Discharge Instructions * Discharge Instr - AVS* Raj Ahn, DO - 05/04/2023 11:01 AM EDT [facility] [address] [place] [address], [place] [address] Discharge Date: 05/04/2023 You may call brianna [facility] at [phone] during business hours. For after-hours emergencies call 911. Your attending physician at the time of your discharge was: Raj Ahn DO [address] [place] [id number] The information below provides you with the instructions and the list of medications you need to betaking following discharge from the hospital. If you have any questions, please ask before leaving.Please carry this letter with you when you see your doctor in the clinic. Diet: Resume your normal diet If you are diabetic, follow your blood sugars closely for next 2-3 days as they are likely to be elevated. If you are having difficulty controlling your blood sugars call your family doctor or the physician that treats your diabetes. Activity: Do not engage in strenuous activity today Resume your normal activities tomorrow Do not soak in water for 24 hours. No swimming, hot tub or bath but showering is allowed. Do not use heat on the injection site for 24 hours. If uncomfortable ice may be helpful. Some injections may make your arms or legs weak for a few hours. Be extremely careful when walking or changing positions that you do not fall. Have someone assist you for the next 6 hours. If weakness or numbness becomes progressive CALL IMMEDIATELY or GO TO THE NEAREST EMERGENCY ROOM Keep a diary of your pain until seen in the office to help us determine how effective the injectionwas Do not restart physical therapy or chiropractic manipulation until 48 hours after your injection Call : If weakness or numbness suddenly becomes worse or become progressive If the injection site becomes red, swollen, warm to the touch, begins to bleed or drain fluid, or is excessively painful. If you have any questions Medications: Resume all the medications you were taking prior to your injection. Resume your anticoagulants tomorrow unless otherwise instructed by your family physician, cloth shearing supervisor or the anticoagulation clinic. Additional Instructions: {[id number]} Driving: . Date you may return to work or school: Follow Up: Call [phone] in 4 weeks. documented in this encounter Progress Notes * Raj Ahn DO - 05/04/2023 11:01 AM EDT [facility] [place] [address] [place] [phone] OUTPATIENT SURGERY DISCHARGE SUMMARY NOTE Name: Stephanie Camp [facility]: [facility] Date: 05/04/2023 Time: 11:01 AM Surgery Date: 05/04/2023 Procedure: Procedure(s): INJECTION SACROILIAC JOINT No laterality found for procedure #1 Surgeon: Surgeon(s): Raj Ahn DO Discharge Diagnosis: Left sacroiliitis After examination of this patient, I have determined she is ready for discharge to home when the patient meets criteria. Discharge instructions were given to the patient. documented in this encounter H&P Notes * Raj Ahn DO - 05/04/2023 6:57 AM EDT Interventional Pain Pre-Procedure Assessment Name:Stephanie Camp Date:05/04/2023 Time:6:57 AM Procedure(s): Bilateral sacroiliac joint injections Diagnosis: Sacroiliitis Pre-Procedure Assessment: Prior to the procedure, the patient was identified. The patient's history, medications and allergies were reviewed . The patient is competent. The risks and benefits of the proposed procedure and theplanned sedation were discussed with the patient. All questions were answered and informed consent for the procedure was obtained. Prior to Admission medications Medication Sig Last Dose Discont. oxyCODONE HCl 5 MG Oral Tablet (Oxy IR) Take 1 Tablet by mouth every 6 hours as needed for Pain, Severe. DULoxetine HCl 30 MG Oral Capsule Delayed Release Particles (Cymbalta) Take 1 Capsule by mouth in the morning. Do not cut, crush or chew Takes with a cymbalta 60 mg to = cymbalta 90 mg daily. DULoxetine HCl 60 MG Oral Capsule Delayed Release Particles (Cymbalta) Take 1 Capsule by mouth in the morning. Take with 30mg cap to equal 90mg daily. NovoLOG FlexPen 100 UNIT/ML Subcutaneous Solution Pen-injector (insulin aspart) Inject 40-45 units with meals + sliding scale 1 units for every 25 units BG > 150. Clobetasol Propionate 0.05 % External Ointment (Temovate) Apply topically to affected area 2 times a day. Apply to leg rash Docusate Sodium 100 MG Oral Capsule (Colace) Take 1 Capsule by mouth in the morning and 1 Capsule before bedtime. Mounjaro 2.5 MG/0.5ML Subcutaneous Solution Pen-injector (Tirzepatide) Inject 2.5 mg under the skinonce a week. clonazePAM 0.5 MG Oral Tablet (KlonoPIN) TAKE 1 TABLET BY MOUTH IN THE MORNING AND AT BEDTIME Acetaminophen 500 MG Oral Tablet (Tylenol) Take 2 Tablets by mouth in the morning and 2 Tablets at noon and 2 Tablets before bedtime. DIURETIC TITRATION PLAN If no improvement on day 3, contact heart failure managing provider. Potassium Chloride Ayleen ER 20 MEQ Oral Tablet Extended Release Take only as directed with diuretic titration plan Omeprazole 20 MG Oral Capsule Delayed Release (PriLOSEC) TAKE 1 CAPSULE BY MOUTH ONCE DAILY IN THE MORNING Potassium Chloride Ayleen ER 20 MEQ Oral Tablet Extended Release TAKE 1 TABLET BY MOUTH IN THE MORNING AND AT BEDTIME Gabapentin 300 MG Oral Capsule (Neurontin) Take 2 Capsules by mouth in the morning and 2 Capsules at noon and 2 Capsules before bedtime. Tresiba FlexTouch 100 UNIT/ML Subcutaneous Solution Pen-injector (Insulin Degludec) INJECT 58 UNITSUNDER THE SKIN IN THE EVENING Baclofen 10 MG Oral Tablet (Lioresal) Take 1 Tablet by mouth 2 times a day as needed. Furosemide 40 MG Oral Tablet (Lasix) TAKE 1 AND 1/2 TABLETS BY MOUTH IN THE MORNING AND AT BEDTIME Senna-Time S 8.6-50 MG Oral Tablet (senna-docusate) TAKE 1 TABLET BY MOUTH IN THE MORNING AND AT BEDTIME traMADol HCl 50 MG Oral Tablet (Ultram) TAKE 1 TABLET BY MOUTH EVERY 8 HOURS NEEDED FOR SEVERE PAIN traZODone HCl 100 MG Oral Tablet (Desyrel) TAKE 1 TABLET BY MOUTH AT BEDTIME Eliquis 5 MG Oral Tablet (Apixaban) TAKE 1 TABLET BY MOUTH IN THE MORNING AND AT BEDTIME Levothyroxine Sodium 50 MCG Oral Tablet (Levoxyl) TAKE 1 TABLET BY MOUTH ONCE DAILY IN THE MORNING Magnesium Oxide 400 MG Oral Tablet TAKE 1 TABLET BY MOUTH IN THE MORNING AND AT BEDTIME Levothyroxine Sodium 200 MCG Oral Tablet (Levoxyl) TAKE 1 TABLET BY MOUTH DAILY AT LEAST 30 MINUTESPRIOR TO FIRST MEAL OF THE DAY OR OTHER MEDICATIONS Cholecalciferol 25 MCG (1000 UT) Oral Capsule Take 1 Capsule (1,000 Units) by mouth in the morning. Dicyclomine HCl 20 MG Oral Tablet (Bentyl) Take 1 Tablet (20 mg) by mouth 4 times a day as needed for Cramping. Meclizine HCl 12.5 MG Oral Tablet (Antivert) Take 1 Tablet (12.5 mg) by mouth 3 times a day as needed for Dizziness. metFORMIN HCl ER 500 MG Oral Tablet Extended Release 24 Hour (Glucophage XR) Take 1 Tablet (500 mg)by mouth in the morning. metOLazone 2.5 MG Oral Tablet (Zaroxolyn) Take 1 Tablet (2.5 mg) by mouth daily as needed (leg edema). Do not take unless instructed by provider Ondansetron HCl 4 MG Oral Tablet Take 1 Tablet (4 mg) by mouth every 6 hours as needed for Nausea. rOPINIRole HCl 2 MG Oral Tablet (Requip) Take 1 Tablet (2 mg) by mouth at bedtime. BD Pen Needle Short U/F 31G X 8 MM (Insulin Pen Needle) use five times daily OneTouch Ultra Blue In Vitro Strip (Glucose Blood) Check sugars 3-4 times daily, E11.9 CPAP every night at bedtime. oxygen GAS Use 3 L/min(Oxygen) as directed continuous. ONETOUCH DELICA LANCETS 33G MISC Check blood sugars 3-4 times daily Review of patient's allergies indicates: Allergen Reactions Bupropion Other reaction(s): Recurrent falls as per patient Jardiance [Empagliflozin] Other (Please comment) 3 yeast infections in 6 weeks after starting Codeine hallucination Farxiga [Dapagliflozin] Other (Please comment) Yeast infection Hay Fever [Pollen] Heparin Heparin Induced Thrombocytopenia Hydrocodone Neuro complications (Please comment) Morphine And Related Hallucinations Tetanus Toxoid Other (Please comment) Passed out LMP 03/11/2003 Physical Exam: Mental Status Examination: alert and oriented. Airway Examination: normal oropharyngeal airway and neck mobility. Respiratory Examination: clear to auscultation. CV Examination: normal. ASA Grade: III - A patient with severe systemic disease. After reviewing the risks and benefits, the patient was deemed in satisfactory condition to undergothe procedure. The anesthesia plan was to use local anesthesia. Raj Usman Ahn DO 05/04/2023 * Raj Ahn, - 03/30/2023 6:43 AM EDT Interventional Pain Pre-Procedure Assessment Name:Stephanie Camp Date:03/30/2023 Time:6:43 AM Procedure(s): Bilateral sacroiliac joint injections Diagnosis: Sacroiliitis Pre-Procedure Assessment: Prior to the procedure, the patient was identified. The patient's history, medications and allergies were reviewed . The patient is competent. The risks and benefits of the proposed procedure and theplanned sedation were discussed with the patient. All questions were answered and informed consent for the procedure was obtained. Prior to Admission medications Medication Sig Last Dose Discont. Ciprofloxacin HCl 250 MG Oral Tablet (Cipro) Take 1 Tablet by mouth in the morning and 1 Tablet before bedtime. Do all this for 7 days. Acetaminophen 500 MG Oral Tablet (Tylenol) Take 2 Tablets by mouth in the morning and 2 Tablets at noon and 2 Tablets before bedtime. DIURETIC TITRATION PLAN If no improvement on day 3, contact heart failure managing provider. DULoxetine HCl 30 MG Oral Capsule Delayed Release Particles (Cymbalta) Take 1 Capsule by mouth in the morning. Do not cut, crush or chew. Potassium Chloride Ayleen ER 20 MEQ Oral Tablet Extended Release Take only as directed with diuretic titration plan Sertraline HCl 50 MG Oral Tablet (Zoloft) Take 1 Tablet by mouth in the morning. clonazePAM 0.5 MG Oral Tablet (KlonoPIN) TAKE 1 TABLET BY MOUTH IN THE MORNING AND AT BEDTIME Omeprazole 20 MG Oral Capsule Delayed Release (PriLOSEC) TAKE 1 CAPSULE BY MOUTH ONCE DAILY IN THE MORNING Potassium Chloride Ayleen ER 20 MEQ Oral Tablet Extended Release TAKE 1 TABLET BY MOUTH IN THE MORNING AND AT BEDTIME Gabapentin 300 MG Oral Capsule (Neurontin) Take 2 Capsules by mouth in the morning and 2 Capsules at noon and 2 Capsules before bedtime. Tresiba FlexTouch 100 UNIT/ML Subcutaneous Solution Pen-injector (Insulin Degludec) INJECT 58 UNITSUNDER THE SKIN IN THE EVENING Baclofen 10 MG Oral Tablet (Lioresal) Take 1 Tablet by mouth 2 times a day as needed. Ibuprofen 200 MG Oral Tablet (Motrin) Take 2 Tablets by mouth at bedtime as needed for Pain, Mild or Pain, Moderate. Furosemide 40 MG Oral Tablet (Lasix) TAKE 1 AND 1/2 TABLETS BY MOUTH IN THE MORNING AND AT BEDTIME Senna-Time S 8.6-50 MG Oral Tablet (senna-docusate) TAKE 1 TABLET BY MOUTH IN THE MORNING AND AT BEDTIME traMADol HCl 50 MG Oral Tablet (Ultram) TAKE 1 TABLET BY MOUTH EVERY 8 HOURS NEEDED FOR SEVERE PAIN traZODone HCl 100 MG Oral Tablet (Desyrel) TAKE 1 TABLET BY MOUTH AT BEDTIME Eliquis 5 MG Oral Tablet (Apixaban) TAKE 1 TABLET BY MOUTH IN THE MORNING AND AT BEDTIME Levothyroxine Sodium 50 MCG Oral Tablet (Levoxyl) TAKE 1 TABLET BY MOUTH ONCE DAILY IN THE MORNING Magnesium Oxide 400 MG Oral Tablet TAKE 1 TABLET BY MOUTH IN THE MORNING AND AT BEDTIME Trulicity 4.5 MG/0.5ML Subcutaneous Solution Pen-injector (Dulaglutide) Inject 1 pen under the skinweekly NovoLOG FlexPen 100 UNIT/ML Subcutaneous Solution Pen-injector (insulin aspart) Inject 40-45 units with meals + sliding scale 1 units for every 25 units BG > 150. Levothyroxine Sodium 200 MCG Oral Tablet (Levoxyl) TAKE ONE TABLET BY MOUTH IN THE MORNING AT LEAST30 MINUTES PRIOR TO BREAKFAST OR OTHER MEDS Cholecalciferol 25 MCG (1000 UT) Oral Capsule Take 1 Capsule (1,000 Units) by mouth in the morning. Dicyclomine HCl 20 MG Oral Tablet (Bentyl) Take 1 Tablet (20 mg) by mouth 4 times a day as needed for Cramping. Meclizine HCl 12.5 MG Oral Tablet (Antivert) Take 1 Tablet (12.5 mg) by mouth 3 times a day as needed for Dizziness. metFORMIN HCl ER 500 MG Oral Tablet Extended Release 24 Hour (Glucophage XR) Take 1 Tablet (500 mg)by mouth in the morning. metOLazone 2.5 MG Oral Tablet (Zaroxolyn) Take 1 Tablet (2.5 mg) by mouth daily as needed (leg edema). Do not take unless instructed by provider Ondansetron HCl 4 MG Oral Tablet Take 1 Tablet (4 mg) by mouth every 6 hours as needed for Nausea. rOPINIRole HCl 2 MG Oral Tablet (Requip) Take 1 Tablet (2 mg) by mouth at bedtime. BD Pen Needle Short U/F 31G X 8 MM (Insulin Pen Needle) use five times daily OneTouch Ultra Blue In Vitro Strip (Glucose Blood) Check sugars 3-4 times daily, E11.9 CPAP every night at bedtime. Blood Glucose Monitoring Suppl (ONETOUCH ULTRA 2) w/Device KIT Use to test BG values oxygen GAS Use 3 L/min(Oxygen) as directed continuous. ONETOUCH DELICA LANCETS 33G MISC Check blood sugars 3-4 times daily Review of patient's allergies indicates: Allergen Reactions Bupropion Other reaction(s): Recurrent falls as per patient Jardiance [Empagliflozin] Other (Please comment) 3 yeast infections in 6 weeks after starting Codeine hallucination Farxiga [Dapagliflozin] Other (Please comment) Yeast infection Hay Fever [Pollen] Heparin Heparin Induced Thrombocytopenia Hydrocodone Neuro complications (Please comment) Morphine And Related Hallucinations Tetanus Toxoid Other (Please comment) Passed out LMP 03/11/2003 Physical Exam: Mental Status Examination: alert and oriented. Airway Examination: normal oropharyngeal airway and neck mobility. Respiratory Examination: clear to auscultation. CV Examination: normal. ASA Grade: III - A patient with severe systemic disease. After reviewing the risks and benefits, the patient was deemed in satisfactory condition to undergothe procedure. The anesthesia plan was to use local anesthesia. Raj Ahn DO 03/30/2023 documented in this encounter Nursing Notes * Madison Gallagher RN - 05/04/2023 11:08 AM EDT Patient tolerated pain injection well. Ready for discharge to home. * Eunice Hallman RN - 05/04/2023 11:02 AM EDT Band aid applied to area. Patient transferred to PACU 11 via wheelchair * Eunice Hallman RN - 05/04/2023 11:01 AM EDT Patient tolerating pain management injection well. documented in this encounter OR Notes * OR Surgeon - Raj Ahn DO - 05/04/2023 11:01 AM EDT OPERATIVE RECORD OR [facility], Operating Room [facility] [address] [facility] [place] [address] Stephanie Camp : 1955 DOS: 05/04/2023 SERVICE: INTERVENTIONAL PAIN MANAGEMENT PRE-OP DIAGNOSIS: Left sacroiliitis. POST-OP DIAGNOSIS: Same. SURGEON: Raj Ahn DO. ASSISTANTS: None. ANESTHESIA: 2 mL of 1% lidocaine. OPERATION: Left sacroiliac joint injection. FINDINGS: No intraoperative findings. ESTIMATED BLOOD LOSS: None. DRAINS: There were no drains placed. FLUIDS: No IV fluids. URINE OUTPUT: None. SPECIMEN: No specimens collected. COMPLICATIONS: None. CONDITION: Good. INDICATIONS AND HISTORY: Stephanie Camp presents in anticipation of undergoing injection of the left sacroiliac joint for persistent buttock pain refractory to conservative management. The procedure was reviewed, as well as the risks of bleeding, infection, neural injury, worsening pain, or steroid side effects. DESCRIPTION OF OPERATION: After obtaining appropriate informed consent, Stephanie Camp was taken to the fluoroscopy suite, placed in a prone position. Time- out was taken to identify the patient, procedure, and the injection site, and the left sacroiliac joint was identified. The overlying skin sterilely prepped with ChloraPrep and draped. 1% lidocaine, 2 mL, was infiltrated in the skin and subcutaneous tissue, and a #25 gauge, 3-1/2 inch spinal needle was directed with fluoroscopic guidance into the inferior aspect of the joint without pain or paresthesia. After negative aspiration 0.5 mL of Omnipaque 180 was easily injected and showed appropriate intra-articular placement. There was no evidence of intravascular spread of contrast. Kenalog 40 mg with 1 mL of 0.25% preservative-free bupivacaine was then easily injected without pain. Needle was removed. Patient tolerated procedure well.Stephanie Camp will be re-evaluated in approximately 4 weeks by phone and was given appropriate discharge instructions following postprocedural monitoring. Raj Ahn DO 05/04/2023 11:01 AM documented in this encounter Plan of Treatment Upcoming Encounters Date Type Specialty Care Team Description 05/09/2023 Office Visit Family Medicine Galdino Andujar, DO [address] [place] [address] 05/16/2023 Office Visit Family Medicine Galdino Andujar DO [address] [place] [address] 05/25/2023 [facility] Visit [facility]an [facility] [address] [facility] [place] [address] 06/17/2023 Office Visit Orthopedics Andrea Paez PA-C [address] [place] [id number] 08/08/2023 Nurse Only [employer], Nurse Annual Wellness Visit [address] [facility] [address] [place] [address] Scheduled Procedures Name Priority Associated Diagnoses Date/Ti me INJECTION SACROILIAC JOINT Inflammation of sacroiliac joint (HCC) 05/04/2023 10:57 AM EDT COLONOSCOPY FLEXIBLE PROXIMAL DIAGNOSTIC Recall [...] Additional history exists CKD PHOS USE SMARTSET 48781 02/12/202401/24, 01/07/2022, 03/12/2021, Additional history exists CKD HGB USE SMARTSET 64252 03/17/202403/17, 03/17/2023, 11/01/2022, Additional history exists Mammogram [...] Procedure Name Priority Date/Time Associated Diagnosis Comments FLUORO INTERVENTIONAL PAIN PROCEDURE NONBILLABLE Routine 05/04/2023 11:03 AM EDT documented in this encounter Results * FLUORO INTERVENTIONAL PAIN PROCEDURE NONBILLABLE (05/04/2023 11:03 AM EDT) Narrative Scheduling, Silent - 05/04/2023 11:04 AM EDT This procedure will not be read by a Radiologist. Please see operative note. Raj Ahn DO RAD FLUOROSCOPY documented in this encounter Administered Medications Inactive Administered Medications - up to 3 most recent administrations Medication Order MAR Action Action Date Dose Rate Site bupivacaine (Sensorcaine) 0.25 % inj 5 mg 5 mg (2 mL), Injection, ONCE, On Tue05/04/23 at 1115, For 1 dose Given 05/04/2023 11:01 AM EDT 2 mL Iohexol (Omnipaque 180) inj 1 mL 1 mL, Injection, ONCE, On Tue05/04/23 at 1115, For 1 dose Given 05/04/2023 10:59 AM EDT 0.5 mL lidocaine 1 % inj 30 mg 30 mg (3 mL), Subcutaneous, ONCE, On Tue05/04/23 at 1115, For 1 dose Given 05/04/2023 11:15 AM EDT 20 mL Other-Specify Triamcinolone Acetonide (Kenalog) 40 MG/ML inj 60 mg 60 mg, Intra-Articular, ONCE, On Tue05/04/23 at 1115, For 1 dose Given 05/04/2023 10:59 AM EDT 40 mg documented in this encounter Active and Recently Administered Medications Times are shown in EDT. Scheduled Medication Order 05/02/2023 05/03/2023 05/04/2023 bupivacaine (Sensorcaine) 0.25 % inj 5 mg (COMPLETED) 5 mg (2 mL), Injection, ONCE, On Tue05/04/23 at 1115, For 1 dose 1101 (Given - Provid er: Eunice Hallman RN) Iohexol (Omnipaque 180) inj 1 mL (COMPLETED) 1 mL, Injection, ONCE, On Tue05/04/23 at 1115, For 1 dose 1059 (Given - Provid er: Eunice Hallman RN) lidocaine 1 % inj 30 mg (COMPLETED) 30 mg (3 mL), Subcutaneous, ONCE, On Tue05/04/23 at 1115, For 1 dose 1115 (Given - Provid er: Eunice Hallman RN - Comment: left si) Triamcinolone Acetonide (Kenalog) 40 MG/ML inj 60 mg (COMPLETED) 60 mg, Intra-Articular, ONCE, On Tue05/04/23 at 1115, For 1 dose 1059 (Given - Provid er: Eunice Hallman RN) documented in this encounter Advance Directives Documents on File Type Date Recorded Patient Fence Supervisor Expl anation POLST 03/19/2020 4:25 PM [...] the patient have Health Care Power of Veterinary Milk Specialist? No Healthcare Agents on File Name Relationship Healthcare Agent Relationship Communication Galdino Camp Other - (no specific identity) Health Care Power of Veterinary Milk Specialist Princess Allen Other - (no specific identity) Health Care Power of Veterinary Milk Specialist Care Teams Transmitter Engineer In Charge Relationship Specialty Start Date End Date Galdino Andujar, DO [address] [place] [address] PCP - General Internal Medicine 01/07/22 documented as of this encounter
--- OUTSIDE RECORDS SUMMARY | 2023-06-01 04:06 | External Medical Summary | Summary of Care ---
Author Name Unknown Organization [facility] Address [address] [place] [address] Phone [phone] Care Team Providers Care Folder And Notcher Name Role Phone Galdino Andujar DO Primary Care Provider [phone] Reason for Visit * Reason Comments [facility]: Telehealth Encounter Details Date Type Department Care Team Description 05/03/2023 Home Visit [facility], [facility] [address] [facility] [place] [address] Lucia Garcia CRNP [address] [facility] [place] [address] Jeanette Whiteside, Community Health Payroll 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 [address] [place] [address] 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 3b chronic kidney disease (HCC)*; Spinal stenosis of lumbar region without neurogenic claudication; Moderate episode of recurrent major depressive disorder (HCC); Chronic hypoxemic respiratory failure (HCC) Allergies Active Allergy Reactions Severity [...] Dispensed Refills Start Date End Date Status VALENTINAOBEYGRABIEL BISWAS LANCETS 33G MISC Check blood sugars [...] goal of less than 8.0% ([facility]) Take 1 Tablet (500 mg) [...] Lumbar radiculopathy,Primar y osteoarthritis of left knee TAKE 1 TABLET [...] hemoglobin A1c goal of 7.0%-8.0% ([facility]) INJECT 58 UNITS UNDER THE SKIN IN THE EVENING 60 mL 3 03/15/2023 Active Potassium Chloride Ayleen ER 20 MEQ Oral Tablet Extended ReleaseIndications: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, NYHA class 1 and CKD stage 3 ([facility]),Chronic diastolic congestive heart failure ([facility]) TAKE 1 TABLET BY MOUTH IN THE [...] hemoglobin A1c goal of 7.0%-8.0% ([facility]) Inject 40-45 units with meals [...] 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/31/2021 Atherosclerosis of [place] coronary arter 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 12/31/2021 [...] Assessment & Plan: Home PT to start [place] filter in place 08/19/2014 History of pulmonary [...] (Pfizer) 2022,10/01/2021 Pneumococcal Conjugate Vacci ne, 20-valent ([id number]) 03/12/2022 Pneumococcal Polysaccharide PPV23 (Pneumovax) 08/22/2009,06/15/2006 Seasonal [...] Sign Reading Time Taken Comments Blood Pressure 134/72 05/03/2023 12:00 PM EDT Pulse 88 05/03/2023 12:00 PM EDT Temperature 36.2 C (97.2 F) 05/03/2023 12:00 PM E DT Respiratory Rate 18 05/03/2023 12:00 PM EDT Oxygen Saturation 93% 05/03/2023 12:00 PM EDT Inhaled Oxygen Concentration - - Weight - - Height - - Body Mass Index - - documented in this encounter Progress Notes * TATIANA Pro - 05/03/2023 12:30 PM EDT Images from the original note were not included. [facility] Problem Oriented Charting Provider Visit Date: 05/03/2023 Time: 12:31 PM [facility] Sub-Program: Focused Care Management (3-9 months) [facility] Episode Start Date: Noted: 06/14/2022 Assessment and Plan #1 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 3b chronic kidney disease (HCC) Assessment & Plan: "RED FLAG" HF Symptoms: [...] o Pro-BNP Additional Comments: o Stable today #2 Spinal stenosis of lumbar region without neurogenic claudication Assessment & Plan: Pain is more controlled now on oxycodone prn and duloxetine 90mg daily Sees pain mgmt tomorrow for injection #3 Moderate episode of recurrent major depressive disorder (HCC) Assessment & Plan: Reports her depression is much improved now on duloxetine 90mg daily #4 Chronic hypoxemic respiratory failure (HCC) Assessment & Plan: At baseline. -continue O2 3 L at all times. Additional Medical Decision Making: Pt feeling better today. She is getting very close follow up with pcp and keeping all specialty appts. Recent utilization regarding uncontrolled pain. Discussed transition out of primary care at home to 3-9 month and monitoring. Possible graduation if remains stable--with referral to clinic CM. She is agreeable with this plan. RNCM to monitor. Will recheck in 10-12 weeks, can consider possible graduation after that time. Check-out note: [facility] scheduling--please schedule 10-12 week telemedicine recheck with me. Scheduled appointments in the next 60 days: Future Appointments-next 60 days Date/Time Provider Specialty Dept Phone 05/03/2023 12:30 PM Jeanette Whiteside, Community Health Payroll 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; TATIANA rPo at [phone] 05/09/2023 2:20 PM (Arrive by 2:05 PM) Galdino Andujar DO Family Medicine [phone] 05/16/2023 1:00 PM (Arrive by 12:45 PM) Galdino Andujar DO Family Medicine [phone] 05/25/2023 11:00 AM Vera Capellan RN [facility] [phone] 06/17/2023 9:00 AM (Arrive by 8:45 AM) Andrea Paez PA-C Orthopedics [phone] 08/08/2023 2:00 PM Nurse Annual Wellness Visit [address] [facility] [phone] A total of 17 minutes was spent face to face (via video-based telemedicine if designated as a telemedicine visit) Subjective Subjective Is this a Telemedicine Visit? Yes, Patient location: HOME. I was not in a hospital or clinic location. After connecting through televideo, patient was verified with two unique identifiers. Patient (or authorized legal ocean import representative) was then informed that this was a Telemedicine visit and being conducted confidentially over secure lines. Methods to assure confidentiality were taken. Patient acknowledged consent and understanding of privacy and security of the Telemedicine visit. The patient agreed to participate. Reason For [facility] Visit: Follow-Up Current Concerns: Stephanie Camp is a 68 year old female seen today for a [facility] provider visit. Pmh: Chronic respiratory failure secondary to possible interstitial lung disease on home oxygen, CPAP at bedtime, chronic diastolic heart failure, PVD, hypertension, diabetes, CKD, creatinine is baseline 1.6, history of PE and DVT status post IVC filter placement and on Eliquis, hypothyroidism, fibromyalgia. [facility] 03/24-04/01/23 worsening back pain and difficulty getting around home. Inpatient 03/05-03/11 d/t pain and muscle soreness. Noted she had outpt [facility] scheduled 03/30. Noted rehab placement prior admissiondeclined. Also struggling with depression--transitioning back to sertraline from duloxetine. Work negative for acute pathology--to continue gabapentin, duloxetine and baclofen. Oxycodone prn. Noted Igm Lyme neg. Transferred to [facility] and d/c back to home 04/08/23. RNCM 04/11--duloxetine increased to 90mg daily and oxycodone 5mg every 6 hours. PCP 04/14--noted depression not improved on duloxetine and possible transition to sertraline if no improvement in 3 weeks. Mobility assessment ordered for power w/c. Ortho 04/21/23--L knee injection Today's concerns are: Not feeling much better--"sciatic" mostly in L buttock. Some low back pain all the time. She thinks the duloxetine is helping with her mood and depression--using oxycodone prn. Reports power mobility assessment was done and she should qualify for scooter. Reports she was given cream for her leg rash --clobetasol Additional Review of Systems Constitutional: Negative for activity change, appetite change, chills and fatigue. Respiratory: Positive for shortness of breath (baseline, not worse). Cardiovascular: Positive for leg swelling (chronic). Negative for chest pain. Gastrointestinal: Negative for constipation and diarrhea. Genitourinary: Negative for dysuria. Musculoskeletal: Positive for back pain. Negative for arthralgias and gait problem. Skin: Positive for rash. Neurological: Positive for numbness (feet--neuropathy). Negative for dizziness. Psychiatric/Behavioral: Negative for dysphoric mood (improved on increased dose duloxetine). Objective Objective Vitals: 05/03/23 1200 Temp: 36.2 C (97.2 F) Pulse: 88 Resp: 18 SpO2: 93% BP: 134/72 Last Weights: Wt Readings from Last 3 Encounters: 05/04/23 (!) 140.2 kg (309 lb) 04/21/23 (!) 140.6 kg (310 lb) 04/15/23 (!) 141.5 kg (312 lb) Last BPs: BP Readings from Last 4 Encounters: 05/04/23 157/85 05/03/23 134/72 04/26/23 90/56 04/15/23 100/60 Physical Exam Vitals reviewed. Constitutional: General: She is not in acute distress. Appearance: She is obese. She is not toxic-appearing. Comments: Chronically ill Cardiovascular: Comments: Unable to adequately auscultate heart sounds Pulmonary: Effort: Pulmonary effort is normal. No respiratory distress. Breath sounds: Normal breath sounds. Skin: Coloration: Skin is not pale. Neurological: General: No focal deficit present. Mental Status: She is alert. Psychiatric: Mood and Affect: Mood normal. Behavior: Behavior normal. Thought Content: Thought content normal. Judgment: Judgment normal. Lab Review: I have reviewed the following results: BMP results Recent Labs Units 03/17/23 1237 12/08/22 1515 11/01/22 1413 09/13/22 1410 SODIUM - [facility] mmol/L 141 -- 139 140 POTASSIUM - [facility] mmol/L 4.0 -- 4.5 4.4 CHLORIDE - [facility] mmol/L 98 -- 96* 96* CO2 - [facility] mmol/L 31 -- 31 33* CREATININE - [facility] mg/dL 1.6* 1.7* 1.6* 1.5* BUN - [facility] mg/dL 25* 25* 25* 20 Lipid panel results Recent Labs Units 07/02/22 1511 CHOLESTEROL - [facility] mg/dL 208* LDL CHOLESTEROL (CALCULATED) - [facility] mg/dL 120 HDL CHOLESTEROL - [facility] mg/dL 44* TRIGLYCERIDES - [facility] mg/dL 220* CBC results Recent Labs Units 03/17/23 1237 11/01/22 1413 06/29/22 0813 WBC AUTO - [facility] K/uL 12.35* 11.31* 12.26* HGB - [facility] g/dL 13.2 13.3 13.9 HCT - [facility] % 43.3 43.5 44.9 PLATELET AUTO - [facility] K/uL 286 339 343 HbA1c results Recent Labs Units 03/05/23 0000 02/11/23 1131 11/01/22 1413 HEMOGLOBIN A1C - [facility] % -- 7.7* 6.9* HEMOGLOBIN, [id number] LAB 7.1 -- -- TSH results Recent Labs Units 11/01/22 1413 01/07/22 1156 TSH - [facility] uIU/mL 1.10 0.95 Vitamin D results Recent Labs Units 11/01/22 1413 07/02/22 1511 25-HYDROXY VITAMIN D - [facility] ng/mL 34 29 Hepatic panel results Recent Labs Units 03/17/23 1237 11/01/22 1413 09/13/22 1410 PROTEIN - [facility] g/dL 7.2 7.2 7.2 BILIRUBIN, TOTAL - [facility] mg/dL 0.3 0.3 0.3 ALKALINE PHOSPHATASE - [facility] U/L 93 96 89 AST - [facility] U/L 17 15 22 ALT - [facility] U/L 17 14 16 Medication Review "Bottles Out" medication review not performed today TATIANA Pro 10:23 AM *Communication sent to PCP (via autofax if non-[facility]), [facility]/Population Health Care Team members,relevant Specialty Care Physicians* * Jeanette Whiteside, [facility] Health Payroll 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 - 05/03/2023 12:18 PM EDT Community Health Payroll 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 Visit Date: 05/03/2023 Time: 12:18 PM Name: Stephanie Camp : 1955 Stephanie was sitting in her recliner when I arrived. Feeling at her baseline Referral Source: project development manager Source of Information: Patient Spoken language: tajik Patient can read in Malagasy: Yes. Tile Layer Helper needed: No. COVID-19 screening completed: Yes Vitals: Vital signs completed: Yes, vital signs within normal range. BP 134/72 | Pulse 88 | Temp 36.2 C (97.2 F) (Infrared ) | Resp 18 | LMP 03/11/2003 | SpO2 93% Condition Changes: Changes in health or social status since last visit: na The patient has new concerns since last visit: N0 Progress towards goals since last visit: Get dexcom sensor-it is in the mail- mailed out Tuesday Get scooter-waiting Get back injections-appointment tomorrow for this Medications: Medication review completed? No, provider visit Fills at [facility] Meds are blister packed Does the patient have barriers to medication adherence? No. Patient reports difficulty paying for medications or might in the future: No. Telehealth: This is a telehealth visit: Yes. Type of telehealth visit: Return/Routine Visit conducted with: Physician/AP Symptoms Surveys and Evaluations: MAHC10 completed this visit: Yes. Score is 4 or more? Yes, notified Provider/Donor Recruitment Manager Last flowsheet values for MAHC10: Age 65+: 1 (05/03/2023 12:00 PM) Diagnosis (3 or more co-existing): 1 (05/03/2023 12:00 PM) Prior history of falls within 3 months: 1 (05/03/2023 12:00 PM) Incontinence: 1 (05/03/2023 12:00 PM) Visual impairment: 0 (05/03/2023 12:00 PM) Impaired functional mobility: 0 (05/03/2023 12:00 PM) Environmental hazards: 0 (05/03/2023 12:00 PM) Poly Pharmacy (4 or more prescriptions - any type): 1 (05/03/2023 12:00 PM) Pain affecting level of function: 1 (05/03/2023 12:00 PM) Cognitive impairment: 0 (05/03/2023 12:00 PM) Score - a score of 4 or more is considered at risk for fallin (05/03/2023 12:00 PM) Home Safety Does member identify any safety issues related to entering or exiting their home? No Does the patient need a wheelchair ramp to access the home? Yes Snow/ice removal assistance available? Yes Is there adequate lighting? N/A Are there railings on stairs? N/A Do sidewalks appear to be in good repair? Yes Does member identify any safety issues related to the interior of their home? No If durable medical equipment is used, halls and doorways easy to navigate? yes Are there trip hazards in the home? No Are there working smoke detectors/CO2 detectors? Yes Is a health condition present or an air quality concern that an air conditioner or other coolingdevice will help? N/A Do stairs in the home have railings? N/A Is there a medical alert or phone near patient? Yes Are walkways clear and well lit? Yes Does member identify any safety issues related to utilizing or accessing the bathroom in their home? No Does bathroom have grab bars needed? Yes The patient reports needing help getting on and off the toilet? No Does the patient report needing help bathing? No Are there any other identified issues/needs? No. If yes specify: Social Determinants of Health: Safety: o Patient reports feeling unsafe in their home: No. Housing: o Patient reports they are at risk of becoming homeless: No. Home/Living situation: o Patient lives alone: Yes o Bathroom is located apartment o Bedroom is located apartment single level o Patient has to go up and down steps: No. Patient receives help from family/friends/neighbors/community agencies etc.: Yes. Type of help the patient receives: physical Patient perceives the help they receive as adequate: o Yes. DME: o DME used: Walker, Wheelchair, O2 and Shower chair o Patient has concerns related to DME: No. Financial: o Patient reports experiencing a financial hardship: No. Employment: o Patient is unemployed or without regular income: No. Utilities: o Patient reports difficulty paying heating, water, or electric bill: No. Transportation: o Patient drives: No. o Does anyone drive patient to appointments and shopping? Yes. o Patient receives community or public transportation assistance: Yes. Specify agency: [facility] o Patient reports trouble getting a ride to medical visits or work: Never True. Clothing: o Patient reports being unable to get clothing when it was really needed: no Food insecurity: o Patient has concerns surrounding meals/food: No. o Within the past 12 months patient worried food would run out before having money to buy more: Never True. o Within the past 12 months the food patient bought did not last and did not have money to get more: Never True o Food is needed for this week: No. Caregiver/Childcare: o Patient feels overwhelmed with taking care of a child, family member or friend: No. o If caregiver is present, patient reports adequate support: Yes. Connections: o How often do you feel lonely or isolated from those around you? Never. Plan: Reinforced patient's three red flags by the care team Unable to wear o2 for any reason (leads to falls) Wt increase to 315lbs Increased sob Abdominal pain Reviewed through teach back method the patients 3 red flags above and the providers POC. Reinforcedfall prevention and safety and using her assistive devices when ambulating. Reinforced medication regimen of right dose/route and time. Follow Up: Patient encouraged to call the intake phone number for all urgent but not emergent issues. Scheduled to follow up with patient in prn Jeanette Whiteside Community Health Payroll 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 05/03/2023 12:18 PM documented in this encounter Miscellaneous Notes * Assessment & Plan Note - TATIANA Pro - 05/04/2023 2:22 PM EDT Associated Problem(s): Chronic hypoxemic respiratory failure (HCC) At baseline. -continue O2 3 L at all times. * Assessment & Plan Note - TATIANA Pro - 05/04/2023 2:21 PM EDT Associated Problem(s): Moderate episode of recurrent major depressive disorder (HCC) Reports her depression is much improved now on duloxetine 90mg daily * Assessment & Plan Note - TATIANA Pro - 05/04/2023 2:20 PM EDT Associated Problem(s): Spinal stenosis of lumbar region without neurogenic claudication Pain is more controlled now on oxycodone prn and duloxetine 90mg daily Sees pain mgmt tomorrow for injection * Assessment & Plan Note - TATIANA Pro - 05/04/2023 2:19 PM EDT Associated Problem(s): 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 3b chronic kidney disease (HCC) "RED FLAG" HF Symptoms: o Leg Swelling [...] o Pro-BNP Additional Comments: o Stable today documented in this encounter Plan of Treatment Upcoming Encounters Date Type Specialty Care Team Description 05/09/2023 Office Visit Family Medicine Galdino Andujar, DO [address] [place] [address] 05/16/2023 Office Visit Family Medicine Galdino Andujar, DO [address] [place] [address] 05/25/2023 Home Visit [facility] Vera Capellan RN [address] [facility] [place] [address] 06/17/2023 Office Visit Orthopedics Andrea Paez PA-C [address] [place] [address] 08/08/2023 Nurse Only [employer], Nurse Annual Wellness Visit [address] [place] [address] Scheduled Procedures Name Priority Associated Diagnoses Date/Ti [...] 06/13/2020, Additional history exists HbA1c 09/04/2023 03/05/2023, 0505/2023, 11/01/2022, Additional history exists GFR 09/16/2023 03/17/2023, 11/24, 11/01/2022, Additional history exists Albumin/Creatinine Ratio 11/01/2023 023, 01/07/2022, 05/24/2019, Additional history exists DIABETES-FOOT EXAM 11/01/2023 11/01/2022, 0 01/07/2022, 01/14/2021, Additional history exists TSH 11/01/2023 11/01/2022, 12/25, 12/25/2020, Additional history exists CKD PHOS USE SMARTSET 87285 02/12/202401/24, 01/07/2022, 03/12/2021, Additional history exists CKD HGB USE SMARTSET 35875 03/17/202403/17, 03/17/2023, 11/01/2022, Additional history exists Mammogram [...] as of this encounter Visit Diagnoses Diagnosis 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 3b chronic kidney disease (HCC)- Primary Spinal stenosis of lumbar region without neurogenic claudication Spinal stenosis, lumbar region, without neurogenic claudication Moderate episode of recurrent major depressive disorder (HCC) Chronic hypoxemic respiratory failure (HCC) Chronic respiratory failure documented in this encounter Advance Directives Documents on File Type Date Recorded Patient Radio Despatcher Expl anation POLST 03/19/2020 4:25 PM POLST [...] the patient have Health Care Power of Aeronautics Commission Director? No Healthcare Agents on File Name Relationship Healthcare Agent Relationship Communication Galdino Camp Other - (no specific identity) Health Care Power of Aeronautics Commission Director Princess Allen Other - (no specific identity) Health Care Power of Aeronautics Commission Director Care Teams Folder And Notcher Relationship Specialty Start Date End Date Galdino Andujar, DO [address] [place] [address] PCP - General Internal Medicine 01/07/22 documented as of this encounter
--- OUTSIDE RECORDS SUMMARY | 2023-06-01 04:06 | External Medical Summary | Summary of Care ---
Author Name Unknown Organization [facility] Address [address] [address] Phone [phone] Care Team Providers Care Surgical Services Director Name Role Phone Galdino Andujar DO Primary Care Provider [phone] Reason for Visit * Reason Comments [facility]: Maintenance Encounter Details Date Type Department Care Team Description 04/26/2023 Home Visit [facility], [facility] [address] [place] [address] Vera Capellan, RN [address] [place] [address] Allergies Active Allergy Reactions Severity Noted Date [...] as of this encounter (statuses as of 04/26/2023) Medications Medication Sig Dispensed Refills Start Date [...] A1c goal of less than 8.0% ([facility]) Take 1 Tablet (500 mg) by mouth [...] with hemoglobin A1c goal of 7.0%-8.0% ([facility]) INJECT 58 UNITS UNDER THE SKIN IN THE EVENING 60 mL 3 03/15/2023 Active Potassium Chloride Ayleen ER 20 MEQ Oral Tablet Extended ReleaseIndications: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/31/2021 Atherosclerosis of [place] coronary arter 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 12/31/2021 [...] Assessment & Plan: Home PT to start Hamilton filter in place 08/19/2014 History of pulmonary [...] as of this encounter (statuses as of 04/26/2023) Resolved Problems Problem Noted Date Resolved Date [...] as of this encounter (statuses as of 04/26/2023) Immunizations Name Administration Dates Next Due COVID-19 mRNA, LNP-s, No Pre serve, 2-Dose Series (Pfizer) 01/08/2021,12/18/2020 COVID-19, LNP-s, No Preserve , Navarro-sucrose, Ages 12+ (Pfizer) 2022,10/01/2021 Pneumococcal Conjugate Vacci ne, 20-valent ([id number]) 03/12/2022 Pneumococcal Polysaccharide PPV23 (Pneumovax) 08/22/2009,06/15/2006 Seasonal [...] Sign Reading Time Taken Comments Blood Pressure 90/56 04/26/2023 12:37 PM EDT right arm standing Pulse 85 04/26/2023 12:36 PM EDT Temperature 36.5 C (97.7 F) 04/26/2023 1 2:36 PM EDT Respiratory Rate 18 04/26/2023 12:3 6 PM EDT Oxygen Saturation 97% 04/26/2023 12: 36 PM EDT 02 on at 3 l/min via nc Inhaled Oxygen Concentration - - Weight - - Height - - Body Mass Index - - documented in this encounter Progress Notes * Vera Capellan RN - 04/26/2023 7:35 AM EDT [facility] Senior Software Architect Visit Date: 04/26/2023 Time: 7:35 AM Name: Stephanie Camp : 1955 Current Concerns: Pt seen for ROSA Pt admitted to [facility] 03/24-04/01/23 for intractable back pain, h/o sciatica, h/o fibromyalgia Was then transferred to [facility] for rehab until discharged on 04/08/23. Was previously admitted 03/07 - 03/11/23 for back pain and cellulitis Pt reports she had an off day yesterday Slept a lot and just didnt feel right since getting up Blood sugars have been lower for her in the after noons - down to low 90s and she states she cantell when it gets that low She is no longer taking Trulicity and will be starting Mounjaro soon, but has not received it yet Blood sugar this am was 174 Has not had any issues with extreme highs 97.7-96%- 85-18-98/62-sitting right arm and 90/56 standing right arm 02 on at 3 l/min via nc Continues to get home health through [facility] for PT, SN Weight has been stable - 309 lbs this am No issues with increased SOB, edema, abd distention Rash of LLE continues but appears faded since last visit Does also have faded rash on RLE Pt reports it continues to itch Was referred to dermatology but wanted to try the cream first - she is going to call to schedule Physical Exam: BP 90/56 Comment: right arm standing | Pulse 85 | Temp 36.5 C (97.7 F) | Resp 18 | LMP 03/11/2003 | SpO2 97% Comment: 02 on at 3 l/min via nc Pain 0 Physical Exam Constitutional: General: She is not in acute distress. Appearance: She is obese. Cardiovascular: Rate and Rhythm: Normal rate and regular rhythm. Pulses: Normal pulses. Heart sounds: Normal heart sounds. Pulmonary: Effort: Pulmonary effort is normal. Breath sounds: Normal breath sounds. Abdominal: Palpations: Abdomen is soft. Musculoskeletal: Right lower leg: Edema (trace) present. Left lower leg: Edema (trace) present. Skin: General: Skin is warm and dry. Neurological: Mental Status: She is alert and oriented to person, place, and time. Problems/Symptoms: Review of Systems Constitutional: Negative. HENT: Negative. Eyes: Negative. Respiratory: Positive for shortness of breath (AVENDAÑO - at baseline). Cardiovascular: Positive for leg swelling. Gastrointestinal: Negative. Endocrine: Negative. Genitourinary: Negative. Musculoskeletal: Positive for arthralgias, back pain and gait problem. Skin: Positive for rash (BLE). Neurological: Positive for numbness (BLE neuropathy). Hematological: Bruises/bleeds easily. Medication Reconciliation: (See medication list) Does patient take medications as ordered: Yes Patient Well Being: PHQ2/9: No questionnaires available. No change in living situation Denies falls MAH-10 Completed this Visit: No. Routine visit and No falls since last visit Advanced Care Planning: POLST. Patient's Goals of Care: 1. Less pain 2. Get out of my apartment - have motorized chair 3. Walk better Reinforcement/Education: Educated on home safety: Create a fall proof home o Clear floors of clutter, loose wires, throw rugs, and cords. o Make sure halls, stairways, and entrances are well lit. o Install a nightlight in your bedroom, hallway and bathroom. o Install grab bars or handrails in the bathroom and on stairs. o Use a non-skid tub/shower mat. o Avoid climbing on a chair; instead use a step stool with a high handrail. o Keep sidewalks and steps in good repair o Keep steps and sidewalks free of snow and ice. Using aids to support and prevent falls o If you have poor balance or have fallen in the past, consider additional support such as a cane or walker. o Use a cane with good support and that is the proper length for you. o Use a walker if a cane doesnt provide enough support. Avoid medications that increase the risk of falling by causing dizziness, change in sensation or slowed reflexes. o Certain medicines may cause falls - blood pressure pills, heart medicines, water pills, or sleeping pills. o Be sure to understand each medicine that you are taking and any side effects that may occur. Improve your balance and flexibility with muscle strengthening exercises. Ask your health care provider for some exercises that will be right for you. DIABETES: -Blood sugar testing schedule: Twice a day, once in the morning and again 2 hours after a meal. -Blood sugar goals: Less than 120, fasting and less than 180, 2 hours after a meal -Record and take to PCP appointments -Notify your doctor if your blood sugar is consistently above goal -Hypoglycemia (low blood sugar) action plan: If blood sugar is less than 70 or having symptoms of low blood sugar eat or drink a snack of 15gm of carbohydrate (2-3 glucose tablets, glass juice, 1Cnon-fat milk, etc) wait 15 min if blood sugar still low repeat snack, wait 15 minutes if still low call health care provider. Ask provider if a medication adjustment is needed if experiencing low blood sugars frequently, twice a week or more. -Hyperglycemia (high blood sugar) action Plan: Take medications as directed, test blood sugars frequently, if above goal, contact your health care provider. Ask for changes to medication if blood sugars continue to run above goal. -Eat three well balanced meals a day 5 servings fruit/vegetable per day Reviewed HF symptom monitoring: -Weigh self daily in am, post-void and record -Do not add salt to food, avoid foods high in sodium -Limit fluids to 2 liters per day -Report the following: ->2 lb weight gain in one day or 5 lbs in a week to PCP -increased edema in feet, abdomen or hands -increased SOB and cough, especially if at night -increased fatigue or vertigo Reinforced safety education and fall prevention. and Reinforced medication regimen. Timing., Dosing. and Purspose. Treatment/Plan: Continue meds as prescribed/reviewed Received MOW's INSTRUCT AT EACH VISIT: CALL [facility] PRIOR TO GOING TO ER FOR ANY REASON USES PILL PACKS FROM [facility] DRY WT as of 08/03/22 - 313lbs Frequent UTI's - typically asymptomatic until has fever, has standing order for urine culture Ambulate with roller walker at ALL times o2 2lnc at rest, 4Lnc with activity - Care [facility] [phone] WEAR O2 AT ALL TIMES OR BECOMES WEAK AND FALLS cpap with 2l qhs Flutter valve 4x/day x10 days Apap, tramadol and topical pain relievers for pain No NSAIDS IF CALLS IN WITH WORSENING GENERALIZED PAIN PLEASE MAKE SURE SHE IS TAKING HER MAGNESIUM-OTHERWISE MAG GOES LOW AND CAUSES PAIN Low na, ccd diet, 1.5L fluid restriction Wear b/l le support hose-on day/off night Zaroxolyn prn for fluid overload-take only as advised Has glucometer and checks blood sugar 3x a day - follows with MTM, glucose monitor in home for backup Per ortho - not a candidate for knee surgery until loses weight Chronic back pain/sciatica - gets injections of SI joints Home Interventions Provided: Home Intervention: Other; eval Reinforced current Plan of Care, including self-management and medication regimen Patient's 'Red Flags': 1. Unable to wear oxygen for any reason (leads to falls) 2. Wt increase to 315 lbs 3. Increased SOB Patient Needs to Remember: Call [facility] at with any new or worsening health concerns or problems, red flag symptoms. Referrals Needed: Other none Follow Up: Is there cellular connectivity/connectivity in the home? Yes Does the patient have internet in the home? Yes Patient encouraged to call the intake phone number for all urgent but not emergent issues. Is the patient new to [facility] within the last 30 days? No, Assess appropriateness for upcoming telehealth visits. Cancel telehealth visits & schedule home visit with care team assembly line machine operator(s)as indicated. Provider is in agreement with Plan of Care: Yes Scheduled to follow up with patient in 1 week with provider, 3-4 weeks with RNCM. Vera Capellan RN 04/26/2023 7:35 AM documented in this encounter Plan of Treatment Upcoming Encounters Date Type Specialty Care Team Description 05/03/2023 Home Visit [facility] Lucia Garcia CRNP [address] [place] [address] Jeanette Whiteside, Community Health Granite Fabricator [address] [place] [address] 05/04/2023 Hospital Encounter Surgery Raj Ahn, DO [address] [place] [address] 05/04/2023 Surgery Surgery Raj Ahn, DO [address] [place] [address] INJECTION SACROILIAC JOINT 05/09/2023 Office Visit Family Medicine Galdino Andujar, DO [address] [place] [address] 05/16/2023 Office Visit Family Medicine Galdino Andujar, DO [address] [place] [address] 05/25/2023 Home Visit [facility] Vera Capellan RN [address] [place] [address] 06/17/2023 Office Visit Orthopedics Andrea Paez PA-C [address] [place] [id number] 08/08/2023 Nurse Only Ancillary College, Nurse Annual Wellness Visit [address] [place] [address] Scheduled Procedures Name Priority Associated Diagnoses Date/Ti [...] Additional history exists CKD PHOS USE SMARTSET 68022 02/12/202401/24, 01/07/2022, 03/12/2021, Additional history exists CKD HGB USE SMARTSET 54297 03/17/202403/17, 03/17/2023, 11/01/2022, Additional history exists Mammogram [...] Documents on File Type Date Recorded Patient Refrigeration Plant Operator Expl anation POLST 03/19/2020 4:25 PM [...] the patient have Health Care Power of Linux Unix Administrator? No Healthcare Agents on File Name Relationship Healthcare Agent Relationship Communication Galdino Camp Other - (no specific identity) Health Care Power of Linux Unix Administrator Princess Allen Other - (no specific identity) Health Care Power of Linux Unix Administrator Care Teams Surgical Services Director Relationship Specialty Start Date End Date Galdino Andujar, DO [address] [place] [address] PCP - General Internal Medicine 01/07/22 documented as of this encounter
--- OUTSIDE RECORDS SUMMARY | 2023-06-01 04:06 | External Medical Summary | Summary of Care ---
Author Name Unknown Organization [facility] Address [address] [place] [address] Phone [phone] Care Team Providers Care Coal Or Ore Controller Name Role Phone Galdino Andujar DO Primary Care Provider [phone] Reason for Visit * Reason Onset Date Comments Medication Question 04/21/2023 Dexcom 7 Encounter Details Date Type Department Care Team Description 04/21/2023 Telephone Family Practice [address] [facility] [place] [address] [place] [address] Galdino Andujar DO [address] [place] [address] Medication Question (Dexcom 7) Allergies Active Allergy Reactions Severity Noted Date [...] as of this encounter (statuses as of 04/29/2023) Medications Medication Sig Dispensed Refills Start Date [...] hemoglobin A1c goal of less than 8.0% ([facility]) Take 1 Tablet (500 mg) [...] MOUTH AT BEDTIME 30 Tablet 02/10/2023 Active traMADol HCl 50 MG Oral [...] mellitus with hemoglobin A1c goal of 7.0%-8.0% ([facility]) INJECT 58 UNITS UNDER THE SKIN IN THE EVENING 60 mL 03/15/2023 Active Potassium Chloride Ayleen ER 20 MEQ Oral Tablet Extended ReleaseIndications: 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 150 mL 3 04/21/2023 Active NovoLOG FlexPen 100 UNIT/ML Subcutaneous Solution Pen-injector (insulin aspart)Indications: Type 2 diabetes mellitus with hemoglobin A1c goal of 7.0%-8.0% (HCC) Inject 40-45 units with meals + sliding scale 1 units for every 25 units BG > 150. 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/31/2021 Atherosclerosis of [place] coronary arter 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 12/31/2021 [...] as of this encounter (statuses as of 04/29/2023) Resolved Problems Problem Noted Date Resolved Date [...] as of this encounter (statuses as of 04/29/2023) Immunizations Name Administration Dates Next Due COVID-19 mRNA, LNP-s, No Pre serve, 2-Dose Series ([employer]) 01/08/2021,12/18/2020 COVID-19, LNP-s, No Preserve , Navarro-sucrose, Ages 12+ (Pfizer) 2022,10/01/2021 Pneumococcal Conjugate Vacci ne, 20-valent ([id number]) 03/12/2022 Pneumococcal Polysaccharide PPV23 (Pneumovax) 08/22/2009,06/15/2006 Seasonal [...] Miscellaneous Notes * Telephone Encounter - Frances Duong [facility] - 04/29/2023 3:02 PM EDT Change of supplier had been sent on 04/14. Put in request again and Confirmed with [employer] that supplier was changed to [employer].Sent update to patient through [email or web address] * Telephone Encounter - Callum Jeong [facility] - 04/21/2023 4:12 PM EDT Spoke with patient and she was requesting Novolog refills to be sent to pharmacy and had f/up questions regarding Dexcom delivery / new DME supplier. I have sent refills for the Novolog and will defer DME question for clinic pharmacist. Orders Placed This Encounter Medications NovoLOG FlexPen 100 UNIT/ML Subcutaneous Solution Pen-injector (insulin aspart) Sig: Inject 40-45 units with meals + sliding scale 1 units for every 25 units BG > 150. Dispense: 150 mL Refill: 3 Thank you, Callum Jeong [facility], Pharm.D. Clinical Pharmacist [facility] 04/21/2023, 4:14 PM * Telephone Encounter - Callum Jeong RP - 04/21/2023 12:58 PM EDT Called and patient was in the middle of getting an x-ray. Will call back later today. * Telephone Encounter - ELISSA Snider - 04/21/2023 8:45 AM EDT Information the dex com 7 And refill on med documented in this encounter Plan of Treatment Upcoming Encounters Date Type Specialty Care Team Description 05/03/2023 Home Visit [facility] Lucia Garcia CRNP [address] [place] [address] Jeanette Whiteside, Community Health Actuarial Analyst [address] [place] [address] 05/04/2023 Hospital Encounter Surgery Raj Ahn DO [address] [place] [address] 05/04/2023 Surgery Surgery Raj Ahn DO [address] [place] [address] INJECTION SACROILIAC JOINT 05/09/2023 Office Visit Family Medicine Galdino Andujar DO [address] [facility] [place] [address] 05/16/2023 Office Visit Family Medicine Galdino Andujar, DO [address] [place] [address] 05/25/2023 Home Visit [facility] Vera Capellan, RN [address] [place] [address] 06/17/2023 Office Visit Orthopedics Andrea Paez PA-C [address] [place] [address] 08/08/2023 Nurse Only Ancillary College, Nurse Annual Wellness Visit 65 [facility] [address] [place] [address] Scheduled Procedures Name Priority Associated Diagnoses Date/Ti [...] Additional history exists CKD PHOS USE SMARTSET 57045 02/12/202401/24, 01/07/2022, 03/12/2021, Additional history exists CKD HGB USE SMARTSET 12692 03/17/202403/17, 03/17/2023, 11/01/2022, Additional history exists Mammogram [...] with hemoglobin A1c goal of 7.0%-8.0% (HCC) Inflammation of sacroiliac joint (HCC) Sacroiliitis, not elsewhere classified documented in this encounter Advance Directives Documents on File Type Date Recorded Patient Coal Washer Expl anation POLST 03/19/2020 4:25 PM POLST [...] the patient have Health Care Power of Fitter Mechanic? No Healthcare Agents on File Name Relationship Healthcare Agent Relationship Communication Galdino Camp Other - (no specific identity) Health Care Power of Fitter Mechanic Princess Allen Other - (no specific identity) Health Care Power of Fitter Mechanic Care Teams Coal Or Ore Controller Relationship Specialty Start Date End Date Galdino Andujar, DO [address] [facility] [address] PCP - General Internal Medicine 01/07/22 documented as of this encounter
--- OUTSIDE RECORDS SUMMARY | 2023-06-01 04:06 | External Medical Summary | Summary of Care ---
Author Name Unknown Organization [facility] Address [address] [place] [address] Phone [phone] Care Team Providers Care Statuary Painter Name Role Phone Lexii Andujar DO Primary Care Provider [phone] Reason for Visit * Reason Onset Date Comments Medication Refill 05/02/2023 Encounter Details Date Type Department Care Team Description 05/02/2023 Refill Family Practice [address] [place] [address] [place] [id number] Lexii Andujar DO [address] [place] [address] Allergies Active Allergy Reactions Severity Noted Date [...] hemoglobin A1c goal of less than 8.0% ([facility]) Take 1 Tablet (500 mg) by [...] mellitus with hemoglobin A1c goal of 7.0%-8.0% ([facility]) INJECT 58 UNITS UNDER THE SKIN IN THE EVENING 60 mL 3 3 Active Potassium Chloride Ayleen ER 20 MEQ Oral Tablet Extended ReleaseIndications :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/31/2021 Atherosclerosis of [place] coronary arter 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 12/31/2021 [...] mRNA, LNP-s, No Pre serve, 2-Dose Series (MiniVax) 01/08/2021,12/18/2020 COVID-19, LNP-s, No Preserve , Navarro-sucrose, Ages 12+ (Pfizer) 2022,10/01/2021 Pneumococcal Conjugate Vacci ne, 20-valent ([id number]) 03/12/2022 Pneumococcal Polysaccharide PPV23 (Pneumovax) 08/22/2009,06/15/2006 Seasonal [...] Encounter - Lexii Andujar DO - 05/02/2023 3:19 PM EDTSigned Prescriptions: Disp Refills oxyCODONE HCl 5 MG Oral Tablet (Oxy IR) 45 Tab*0 Sig: Take 1 Tablet by mouth every 6 hours as needed for Pain, Severe.Authorizing Provider: LEXII ANDUJAR * Addendum Note - Lexii Andujar DO - 05/02/2023 3:19 PM EDTAddended by: LEXII ANDUJAR on: 05/02/2023 03:19 PM Modules accepted: Orders * Addendum Note - Shira Gross LPN - 05/02/2023 3:13 PM EDTAddended by: SHIRA GROSS on: 05/02/2023 03:13 PM Modules accepted: Orders * Telephone Encounter - Lexii Andujar DO - 05/02/2023 2:44 PM EDTSigned Prescriptions: Disp Refills oxyCODONE HCl 5 MG Oral Tablet Abuse-Deter*45 Tab*0 Sig: Take 5mg by mouth every 6 hours as needed for Pain, Severe.Authorizing Provider: LEXII ANDUJAR * Telephone Encounter - Lexii Andujar DO - 05/02/2023 2:42 PM EDT I have reviewed the patients controlled substance dispensing history in the Prescription Drug Monitoring Program in compliance with the [facility] regulations before prescribing a controlled substance. [...] Previous Prescriber: vera capellan Preferred Pharmacy: [facility] [address] Please review and approve if appropriate. Thank you, Clementine Gonzalez CPhT II Service Person Centralized Clinical Pharmacy Services (CCPS) (Formerly Telepharmacy) 05/02/2023, 1:07 PM documented in this encounter Plan of Treatment Upcoming Encounters Date Type Specialty Care Team Description 05/03/2023 Home Visit [facility] Lucia Garcia, TATIANA [address] [place] [address] Jeanette Whiteside, Community Health Flat Hammerer [address] [place] [address] 05/04/2023 Hospital Encounter Surgery Coualejandrathaddeus Raj Callum, DO [address] [place] [address] 05/04/2023 Surgery Surgery JimyRaj Callum, DO [address] [place] [address] INJECTION SACROILIAC JOINT 05/09/2023 Office Visit Family Medicine Lexii Andujar, DO [address] [facility] [place] [address] 05/16/2023 Office Visit Family Medicine Lexii Andujar, DO [address] [facility] [place] [address] 05/25/2023 Home Visit [facility] Vera Capellan RN [address] [place] [address] 06/17/2023 Office Visit Orthopedics Andrea Paez PA-C [address] [place] [address] 08/08/2023 Nurse Only Ancillary College, Nurse Annual Wellness Visit 65 [facility] [address] [place] [address] Scheduled Procedures Name Priority Associated Diagnoses Date/Ti [...] Additional history exists CKD PHOS USE SMARTSET 34490 02/12/202401/24, 01/07/2022, 03/12/2021, Additional history exists CKD HGB USE SMARTSET 46578 03/17/202403/17, 03/17/2023, 11/01/2022, Additional history exists Mammogram [...] Documents on File Type Date Recorded Patient Chief Radiology Expl anation POLST 03/19/2020 4:25 PM POLST [...] the patient have Health Care Power of Office Services 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? No Healthcare Agents on File Name Relationship Healthcare Agent Relationship Communication Lexii Camp Other - (no specific identity) Health Care Power of Office Services 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 Princess Other - (no specific identity) Health Care Power of Office Services 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 Care Teams Statuary Painter Relationship Specialty Start Date End Date Lexii Andujar, DO [address] [place] [address] PCP - General Internal Medicine 01/07/22 documented as of this encounter
--- OUTSIDE RECORDS SUMMARY | 2023-06-01 04:07 | External Medical Summary | Summary of Care ---
Author Name Unknown Organization [facility] Address [address] [place] [address] Phone [phone] Care Team Providers Care Golf Range Attendant Name Role Phone Galdino Andujar DO Primary Care Provider [phone] Reason for Referral * Evaluate & Treat - Unlimited Visits (Within 10 days (routine)) - Authorized Specialty Diagnoses / Procedures Referred By Ethan chao Referred To Contact Dermatology Diagnoses Rash and nonspecific skin eruption Kedar Ivan MD [address] [place] [address] Referral ID Status Reason Start Date Expiration Date Visits Requested Visits Authorized [id number] Authorized Specialty Services Required 04/11/2023 999 999 Question Answer Referral Priority Within 10 days (routine) Are you referring the patient for Mohs Surgery and have a current positive skin cancer biopsy result? No What is the reason for the patient referral? Rash/Skin Check/Eval of Lesion or Mole Reason for Visit * Reason Onset Date Comments [facility]: Maintenance 04/11/2023 Encounter Details Date Type Department Care Team Description 04/11/2023 Telephone [facility], [facility] [address] [address] Vera Capellan, RN [address] [address] [facility]: Maintenance Allergies Active Allergy Reactions Severity Noted Date [...] as of this encounter (statuses as of 04/18/2023) Medications Medication Sig Dispensed Refills Start Date [...] less than 8.0% ([facility]) Take 1 Tablet (500 mg) [...] for Nausea. 90 Tablet 6 08/25/2022 Active NovoLOG FlexPen 100 UNIT/ML Subcutaneous Solution Pen-injector (insulin aspart)Indications: Type 2 diabetes mellitus with hemoglobin A1c goal of 7.0%-8.0% (HCC) Inject 40-45 units with meals + sliding scale 1 units for every 25 units BG > 150. 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 Do not cut, crush or chew. 30 Capsule 5 03/18/2023 Active Additional Information Patient not taking.Reported on 04/14/2023 Acetaminophen 500 MG Oral Tablet (Tylenol) Take [...] AT BEDTIME 60 Tablet 0 04/10/2023 Active DULoxetine HCl 60 MG Oral Capsule Delayed Release Particles (Cymbalta) Take 1 Capsule by mouth in the morning. Take with 30mg cap to equal 90mg daily. 0 Active oxyCODONE HCl 5 MG Oral Tablet Abuse-Deterrent Take 5 mg by mouth every 6 hours as needed for Pain, Severe. 0 Active Blood Glucose Monitoring Suppl (IQMax ULTRA 2) w/Device KIT Use to test BG values 1 Kit 0 05/20/2020 04/14/20 Discontinu ed(Medicat ion List Clean Up) Trulicity 4.5 MG/0.5ML Subcutaneous Solution Pen-injector (Dulaglutide) Inject 1 pen under the skin weekly 6 mL 1 01/11/2023 04/14/20 Discontinu ed(Medicat ion/Dose Changed) Ibuprofen 200 MG Oral Tablet (Motrin) Take 2 Tablets by mouth at bedtime as needed for Pain, Mild or Pain, Moderate. 0 02/11/2023 04/14/20 Discontinu ed(Medicat ion List Clean Up) Triamcinolone Acetonide 0.1 % External Cream (Aristocort) Apply topically to affected area 2 times a day. To affected area. 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 Atherosclerosis of [place] coronary arter 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 12/31/2021 [...] Assessment & Plan: Home PT to start [place] filter in place 08/19/2014 History of pulmonary [...] as of this encounter (statuses as of 04/18/2023) Resolved Problems Problem Noted Date Resolved Date [...] as of this encounter (statuses as of 04/18/2023) Immunizations Name Administration Dates Next Due COVID-19 mRNA, LNP-s, No Pre serve, 2-Dose Series ([place]) 01/08/2021,12/18/2020 COVID-19, LNP-s, No Preserve , Navarro-sucrose, Ages 12+ (Pfizer) 2022,10/01/2021 Pneumococcal Conjugate Vacci ne, 20-valent ([id number]) 03/12/2022 Pneumococcal Polysaccharide PPV23 (Pneumovax) 08/22/2009,06/15/2006 Seasonal [...] Miscellaneous Notes * Telephone Encounter - ELISSA Castano - 04/18/2023 3:15 PM EDT Sent pt letter asking her to call us to schedule derm appt. * Telephone Encounter - ELISSA Castano - 04/18/2023 3:10 PM EDT Called patient, left message to return call. * Telephone Encounter - ELISSA Muniz - 04/15/2023 4:32 PM EDT Left message for pt to return call * Telephone Encounter - ELISSA Muniz - 04/12/2023 9:45 AM EDT Left message for pt to return call to schedule * Telephone Encounter - Kedar Ivan MD - 04/11/2023 4:09 PM EDT Recommend dermatology referral Can use kenalog cream bid meanwhile * Telephone Encounter - Vera Capellan RN - 04/11/2023 3:27 PM EDT Images from the original note were not included. Pt with rash of LLE - also has some spots on RLE and back. Has had for over a week, started when hospitalized. It is itchy, raised, and is spreading. She was getting Triamcinolone applied when in SNF but does not have any in the home. She reports it did help with the itching but does not seem to be going away Could you please send script to [facility] so they can deliver. Any other recommendations? Thank you! documented in this encounter Plan of Treatment Upcoming Encounters Date Type Specialty Care Team Description 04/21/2023 Office Visit Orthopedics Zack Teague, DO [address] [place] [address] 04/21/2023 Imaging Radiology 04/26/2023 Home Visit [facility] Vera Capellan RN [address] [place] [address] 05/03/2023 Home Visit [facility] Lucia Garcia CRNP [address] [place] [address] Jeanette Whiteside, Community Health Dcs Engineer [address] [place] [address] 05/04/2023 Hospital Encounter Surgery Raj Ahn, DO [address] [place] [address] 05/04/2023 Surgery Surgery Raj Ahn, DO [address] [place] [address] INJECTION SACROILIAC JOINT 05/09/2023 Office Visit Family Medicine Galdino Andujar, DO [address] [place] [address] 05/16/2023 Office Visit Family Medicine Galdino Andujar, [address] [place] [address] 08/08/2023 Nurse Only Ancillary College, Nurse Annual Wellness Visit [address] [facility] [address] [place] [address] Scheduled Procedures Name Priority Associated Diagnoses Date/Ti me INJECTION SACROILIAC JOINT Inflammation of sacroiliac joint (HCC) 05/04/2023 11:00 AM EDT COLONOSCOPY FLEXIBLE PROXIMAL DIAGNOSTIC Recall Colon cancer screening Scheduled Referrals Name Type Priority Associated Diagnoses Orde r Schedule DERMATOLOGY REFERRAL OP Referral Within 10 days (routine) Rash and nonspecific skin eruption Ordered: 04/11/2023 Health Maintenance Due Date Last Done Comments Cologuard 2000 Fecal Occult Blood Test 2000 Sigmoidoscopy 2000 COVID-19 Vaccine (5 - Pfizer series) 06/08/2022 2022, 10/01/2021, 01/08/2021, Additional history exists Mammogram 02/11/2023 02/11/2022, 02/2021, 07/10/2019, Additional history exists Depression, Most [...] Additional history exists CKD PHOS USE SMARTSET 95200 02/12/202401/24, 01/07/2022, 03/12/2021, Additional history exists CKD HGB USE SMARTSET 90108 03/17/202403/17, 03/17/2023, 11/01/2022, Additional history exists Colonoscopy 02/17/2026 02/18/2016, 05/2 01/2016, 01/28/2006, Additional history exists Colorectal Cancer Screening [...] as of this encounter Visit Diagnoses Diagnosis Rash and nonspecific skin eruption- Primary Rash and other nonspecific skin eruption Inflammation of sacroiliac joint (HCC) Sacroiliitis, not elsewhere classified documented in this encounter Advance Directives Documents on File Type Date Recorded Patient Security Systems Engineer Expl anation POLST 03/19/2020 4:25 PM POLST [...] the patient have Health Care Power of Tobacco Acre[place] Measurer? No Healthcare Agents on File Name Relationship Healthcare Agent Relationship Communication Galdino Camp Other - (no specific identity) Health Care Power of Tobacco Acreage Measurer Princess Other - (no specific identity) Health Care Power of Tobacco Acreage Measurer Care Teams Golf Range Attendant Relationship Specialty Start Date End Date Galdino Andujar, DO [address] [place] [phone] PCP - General Internal Medicine 01/07/22 documented as of this encounter
--- OUTSIDE RECORDS SUMMARY | 2023-06-01 04:07 | External Medical Summary | Summary of Care ---
Author Name Unknown Organization [facility] Address [address] [place] [address] Phone [phone] Care Team Providers Care Designer Writer Name Role Phone Galdino Andujar DO Primary Care Provider [phone] Reason for Visit * Reason Onset Date Comments Pre Cert/Prior Auth 04/22/2023 Encounter Details Date Type Department Care Team Description 04/22/2023 Telephone Family Practice [address] [facility] [place] [address] [place] [address] Galdino Andujar DO [address] [place] [address] Pre Cert/Prior Auth Allergies Active Allergy Reactions Severity Noted Date [...] A1c goal of less than 8.0% ([facility]) Take 1 Tablet (500 mg) by [...] Tablet (Lasix)Indications:C hronic diastolic congestive heart failure ([facility]) TAKE 1 AND 1/2 TABLETS BY MOUTH [...] with hemoglobin A1c goal of 7.0%-8.0% ([facility]) INJECT 58 UNITS UNDER THE SKIN IN THE EVENING 60 mL 03/15/2023 Active Potassium Chloride Ayleen ER 20 MEQ Oral Tablet Extended ReleaseIndications: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, NYHA class 1 and CKD stage 3 ([facility]),Chronic diastolic congestive heart failure (HCC) TAKE [...] with hemoglobin A1c goal of 7.0%-8.0% ([facility]) Inject 40-45 units with meals + sliding scale 1 units for every 25 units BG > 150. 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 Atherosclerosis of [place] coronary arter 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 12/31/2021 [...] Assessment & Plan: Home PT to start [place] filter in place 08/19/2014 History of pulmonary [...] mRNA, LNP-s, No Pre serve, 2-Dose Series ([place]) 01/08/2021,12/18/2020 COVID-19, LNP-s, No Preserve , Navarro-sucrose, Ages 12+ (Pfizer) 2022,10/01/2021 Pneumococcal Conjugate Vacci ne, 20-valent ([id number]) 03/12/2022 Pneumococcal Polysaccharide PPV23 (Pneumovax) 08/22/2009,06/15/2006 Seasonal [...] encounter Miscellaneous Notes * Telephone Encounter - Chasity Del Toro LPN - 04/22/2023 10:24 AM EDT Received a call from [facility] stating prior auth for Kevan has been approved - 2 mL every 28 days. documented in this encounter Plan of Treatment Upcoming Encounters Date Type Specialty Care Team Description 04/26/2023 Home Visit [facility] Vera Capellan RN [address] [place] [address] 05/03/2023 Home Visit [facility] Lucia Garcia CRNP [address] [place] [address] Jeanette Whiteside, Community Health Welding Supervisor [address] [place] [address] 05/04/2023 Hospital Encounter Surgery Raj Ahn DO [address] [place] [address] 05/04/2023 Surgery Surgery Raj Ahn DO [address] [place] [address] INJECTION SACROILIAC JOINT 05/09/2023 Office Visit Family Medicine Galdino Andujar, DO [address] [place] [address] 05/16/2023 Office Visit Family Medicine Galdino Andujar, DO [address] [place] [address] 06/17/2023 Office Visit Orthopedics Andrea Paez PA-C [address] [place] [address] 08/08/2023 Nurse Only Ancillary College, Nurse Annual Wellness Visit [address] [address] Scheduled Procedures Name Priority Associated Diagnoses Date/Ti [...] Additional history exists CKD PHOS USE SMARTSET 90085 02/12/202401/24, 01/07/2022, 03/12/2021, Additional history exists CKD HGB USE SMARTSET 06203 03/17/202403/17, 03/17/2023, 11/01/2022, Additional history exists Colonoscopy [...] Documents on File Type Date Recorded Patient Aboriginal Community Council Member Expl anation POLST 03/19/2020 4:25 PM POLST [...] the patient have Health Care Power of Advice Nurse? No Healthcare Agents on File Name Relationship Healthcare Agent Relationship Communication Galdino Camp Other - (no specific identity) Health Care Power of Advice Nurse Princess Allen Other - (no specific identity) Health Care Power of Advice Nurse Care Teams Designer Writer Relationship Specialty Start Date End Date Galdino Andujar, DO [address] [place] [address] PCP - General Internal Medicine 01/07/22 documented as of this encounter
--- OUTSIDE RECORDS SUMMARY | 2023-06-01 04:07 | External Medical Summary | Summary of Care ---
Author Name Unknown Organization [facility] Address [address] [place] [address] Phone [phone] Care Team Providers Care Composition Roofer Name Role Phone Galdino Andujar DO Primary Care Provider [phone] Reason for Visit * Reason Comments [facility]: Acute Encounter Details Date Type Department Care Team Description 04/15/2023 Home Visit [facility], [facility] [address] [place] [address] Angi Herrera RN [address] [place] [address] Allergies Active Allergy Reactions Severity Noted Date [...] as of this encounter (statuses as of 04/16/2023) Medications Medication Sig Dispensed Refills Start Date [...] A1c goal of less than 8.0% ([facility]) Take 1 Tablet (500 mg) by mouth [...] 10/04/2022 Active Magnesium Oxide 400 MG Oral TabletIndications:Be [...] with hemoglobin A1c goal of 7.0%-8.0% ([facility]) INJECT 58 UNITS UNDER THE SKIN IN [...] leg rash 60 g 0 04/14/2023 Active Hospital, Clinic, or Other Facility Administered [...] as of this encounter (statuses as of 04/16/2023) Active Problems Problem Noted Date Type 2 [...] 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0 02/2023 Acute deep vein thrombosis ( DVT) [...] as of this encounter (statuses as of 04/16/2023) Immunizations Name Administration Dates Next Due COVID-19 mRNA, LNP-s, No Pre serve, 2-Dose Series ([place]) 01/08/2021,12/18/2020 COVID-19, LNP-s, No Preserve , Navarro-sucrose, Ages 12+ (Pfizer) 2022,10/01/2021 Pneumococcal Conjugate Vacci ne, 20-valent ([id number]) 03/12/2022 Pneumococcal Polysaccharide PPV23 (Pneumovax) 08/22/2009,06/15/2006 Seasonal [...] Sign Reading Time Taken Comments Blood Pressure 100/60 04/15/2023 4:31 PM EDT Pulse - - Temperature 36.6 C (97.9 F) 04/15/2023 4:31 PM ED T Respiratory Rate 20 04/15/2023 4:31 PM EDT Oxygen Saturation 99% 04/15/2023 4:31 PM EDT Inhaled Oxygen Concentration - - Weight 141.5 kg (312 lb) 04/15/2023 4:31 PM EDT Height - - Body Mass Index 51.92 04/14/2023 1:05 PM EDT documented in this encounter Progress Notes * Angi Herrera, RN - 04/15/2023 4:00 PM EDT [facility] [employer] Antisubmarine Officer Visit ['vDate: 04/15/2023 Time: 3:56 PM Name: Stephanie Camp : 1955 Communication Note Name: Stephanie Camp Situation: Pt being seen for acute visit for concerns of covid. Background: HPI: Stephanie Camp is a 68 year old female that is calling [facility] to report she woke up this morning with a T-99.8, head is stuffy, intermittent coughing unable to expectorate mucous,+sneezing, -sore throat, +headache, feels light headed or dizzy, compliant in taking all medications today, weight yesterday was 312lbs, did not weigh self today. Has SOB with exertion, wears oxygen 3lpm via nasal canulla, SPO2 is 94%, HR 92 States she went to see PCP in office yesterday and is concerned she may have picked up COVID when she was there. Is requesting a COVID test to be done by [facility]. PCR ordered, but per [facility] ok if home test is available to use that. Assessment: Vitals: 97.9-88-20 ,100/60, 97% on 3LPM Pt states she feels funny in her head. Has not checked blood sugar. RBS 72-drank 8 oz apple juice ,ate peanut butter and jelly sandwich. Took insulin this am and only ate a handful of strawberries. Rechecked sugar: 77. Patient eating meals on wheels meal. Instructed to continue checking until reading >90. Home covid test negative. Lungs with few very faint crackles in RLL. Wearing her oxygen at 3LPM as per her usual. sats 96-98%. No respiratory distress. Respirations non labored. Wt stable at 312 lbs.No increased edema. Wt Readings from Last 8 Encounters: 04/14/23 (!) 141.7 kg (312 lb 6.4 oz) 03/20/23 (!) 141.5 kg (312 lb) 03/17/23 (!) 141.9 kg (312 lb 12.8 oz) 03/12/23 (!) 139.3 kg (307 lb) 03/01/23 (!) 142.4 kg (314 lb) 02/11/23 (!) 144.7 kg (318 lb 14.4 oz) 02/02/23 (!) 142 kg (313 lb) 01/25/23 (!) 142.4 kg (314 lb) BP Readings from Last 8 Encounters: 04/14/23 138/80 04/11/23 140/70 03/20/23 136/64 03/18/23 118/68 03/17/23 120/68 03/12/23 120/64 03/01/23 122/60 02/11/23 122/70 assessment findings to [facility] Lechuga-no new orders. Pt to continue to hydrate, follow diabetes sickday plan and will place follow up calls over the weekend. Recommendation: Push fluids for remainder of today up to 2L Diabetes sick day plan Rule of 15s for hypoglycemia: 15 grams of sugar, wait 15 minutes, recheck and repeat if blood glucose <90. Follow up calls x 2. Problems/Symptoms: Review of Systems Constitutional: Positive for chills and fever. HENT: Negative. Respiratory: Negative for cough, shortness of breath and wheezing. Cardiovascular: Negative. Gastrointestinal: Negative for abdominal distention, diarrhea, nausea and vomiting. Genitourinary: Negative for decreased urine volume, difficulty urinating and dysuria. Musculoskeletal: Positive for arthralgias. Skin: Positive for rash (LLE-not new). Neurological: Positive for dizziness. Negative for headaches. Hematological: Negative. Physical Exam: Physical Exam Cardiovascular: Rate and Rhythm: Normal rate and regular rhythm. Pulmonary: Effort: Pulmonary effort is normal. Breath sounds: Rales (faint crackles RLL) present. Abdominal: General: Bowel sounds are normal. There is no distension. Palpations: Abdomen is soft. Neurological: Mental Status: She is oriented to person, place, and time. Psychiatric: Thought Content: Thought content normal. [facility] Completed this Visit: No. No falls since last visit Home Interventions Provided: Labs/Specimen Collection Performed home covid test Lab/Imaging Ordered home covid test Consulted PCP/Specialist Reinforced current Plan of Care, including self-management and medication regimen Referrals Needed: KRUNAL Herrera RN 04/15/2023 3:56 PM documented in this encounter Plan of Treatment Upcoming Encounters Date Type Specialty Care Team Description 04/16/2023 Scheduled Telephone [facility] [place] [address] [place] [address] 04/17/2023 Scheduled Telephone [facility] Nurse Virginia Curiel [place] [address] [place] [address] 04/18/2023 Home Visit [facility] Vera Capellan RN [facility] [address] [place] [address] 04/21/2023 Office Visit Orthopedics Zack Teague, DO [address] [facility] [place] [address] 04/21/2023 Imaging Radiology 05/03/2023 Home Visit [facility] Lucia Garcia CRNP [address] [facility] [place] [address] Jeanette Whiteside, Community Health Key Entry Operator [address] [place] [address] 05/04/2023 Hospital Encounter Surgery Raj Ahn, DO [address] [place] [address] 05/04/2023 Surgery Surgery Raj Ahn, DO [address] [place] [address] INJECTION SACROILIAC JOINT 05/09/2023 Office Visit Family Medicine Galdino Andujar, DO [address] [place] [address] 05/16/2023 Office Visit Family Medicine Galdino Andujar, [address] [place] [address] 08/08/2023 Nurse Only Ancillary College, Nurse Annual Wellness Visit [address] [facility] [address] [place] [address] Scheduled Procedures Name Priority Associated Diagnoses Date/Ti me INJECTION SACROILIAC JOINT Inflammation of sacroiliac joint (HCC) 05/04/2023 11:00 AM EDT COLONOSCOPY FLEXIBLE PROXIMAL DIAGNOSTIC Recall Colon cancer screening Health Maintenance Due Date Last Done Comments Cologuard 2000 Fecal Occult Blood Test 2000 Sigmoidoscopy 2000 COVID-19 Vaccine (5 - Pfizer series) 06/08/2022 2022, 10/01/2021, 01/08/2021, Additional history exists Mammogram 02/11/2023 02/11/2022, 01/0 02/2021, 07/10/2019, Additional history exists Depression, Most [...] Additional history exists CKD PHOS USE SMARTSET 27152 02/12/202401/24, 01/07/2022, 03/12/2021, Additional history exists CKD HGB USE SMARTSET 32986 03/17/202403/17, 03/17/2023, 11/01/2022, Additional history exists Colonoscopy [...] Documents on File Type Date Recorded Patient Anatomical Embalmer Expl anation POLST 03/19/2020 4:25 PM POLST [...] the patient have Health Care Power of Medical Lab Technologist? No Healthcare Agents on File Name Relationship Healthcare Agent Relationship Communication Galdino Camp Other - (no specific identity) Health Care Power of Medical Lab Technologist Princess Allen Other - (no specific identity) Health Care Power of Medical Lab Technologist Care Teams Composition Roofer Relationship Specialty Start Date End Date Galdino Andujar, DO [address] [place] [address] PCP - General Internal Medicine 01/07/22 documented as of this encounter
--- OUTSIDE RECORDS SUMMARY | 2023-06-01 04:07 | External Medical Summary | Summary of Care ---
Author Name Unknown Organization [facility] Address [address] [place] [facility] [place] [address] Phone [phone] Care Team Providers Care Identity Management Consultant Name Role Phone Galdino Andujar DO Primary Care Provider [phone] Reason for Visit * Reason Onset Date Comments [facility]: Maintenance 04/15/2023 Encounter Details Date Type Department Care Team Description 04/15/2023 Telephone [facility], [facility] [address] [facility] [place] [address] [facility], Nurse [facility] [address] 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 Atherosclerosis of [place] coronary arter 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 12/31/2021 [...] Therapy: No beta-faviola secondary to --unknown o WLII Inhibitor/ARB Therapy: No WILI/ARB/ARNI secondary to: --unknown [...] as of this encounter (statuses as of 04/15/2023) Resolved Problems Problem Noted Date Resolved Date [...] as of this encounter (statuses as of 04/15/2023) Immunizations Name Administration Dates Next Due COVID-19 mRNA, LNP-s, No Pre serve, 2-Dose Series (Pfizer) 01/08/2021,12/18/2020 COVID-19, LNP-s, No Preserve , Navarro-sucrose, Ages 12+ (Pfizer) 2022,10/01/2021 Pneumococcal Conjugate Vacci ne, 20-valent ([id number]) 03/12/2022 Pneumococcal Polysaccharide PPV23 (Pneumovax) 08/22/2009,06/15/2006 Seasonal [...] encounter Miscellaneous Notes * Telephone Encounter - Rosio Galan RN - 04/15/2023 3:04 PM EDT Communication Note Name: [place] [facility] Situation: Patient requesting to be swabbed today for COVID by [facility] Background: HTN, CHF, CKD, Type 2 diabetes Assessment: 68 year old female that is calling [facility] to report she woke up this morning with a T-99.8, head is stuffy, intermittent coughing unable to expectorate mucous, +sneezing, -sore throat, +headache, feels light headed or dizzy, compliant in taking all medications today, weight yesterday was 312lbs, did not weigh self today. Has SOB with exertion, wears oxygen 3lpm via nasal canulla, SPO2 is 94%, HR 92 States she went to see PCP in office yesterday and is concerned shemay have picked up COVID when she was there. Is requesting a COVID test to be done by [facility], does nothave any test in the home Recommendation: Per [facility]: I did place an order for swab if we're able to deploy someone however I'm sure her PCP office can get her in for a nurse visit (she was there yesterday so able to leave the home) or possibly convenient care as an option Spoke with patient, does not have any ride to PCP or Urgent Care as family is all busy getting ready for their family reunion this weekend. Care team availability: GPS (location): [facility] nurse: Sherry Herrera [facility]: NA * Telephone Encounter - Alvin Lechuga DO - 04/15/2023 2:30 PM EDT [facility] Subprogram: [facility] at [facility] Episode Start Date: Noted: 06/14/2022 Recommendations: I did place an order for swab if we're able to deploy someone however I'm sure her PCP office can get her in for a nurse visit (she was there yesterday so able to leave the home) or possibly convenient care as an option Orders: Plan Respiratory Pathogen Panel, PCR To Do: Please see below for follow up items to be completed and correspondence: radial saw operator Pool please work on the following: contact the caller with advice and orders as above Alvin Lechuga DO Remote Medical Command - [facility] 04/15/2023 Scheduled appointments in the next 60 days: Future Appointments-next 60 days Date/Time Provider Specialty Dept Phone 04/16/2023 9:30 AM Nurse [facility] [phone] 04/17/2023 9:30 AM Nurse [facility] [phone] 04/18/2023 12:30 PM Vera Capellan, RN [facility] [phone] 04/20/2023 9:00 AM [facility] 04/21/2023 1:15 PM (Arrive by 1:00 PM) Zack Teague DO Orthopedics [phone] 04/21/2023 2:15 PM (Arrive by 2:00 PM) [facility] Radiology [phone] 05/03/2023 12:30 PM Jeanette Whiteside, Community Health Granulizing Machine Operator; TATIANA [phone] 05/09/2023 2:20 PM (Arrive by 2:05 PM) Galdino Andujar DO Family Medicine [phone] 05/16/2023 1:00 PM (Arrive by 12:45 PM) Galdino Andujar DO Family Medicine [phone] 08/08/2023 2:00 PM Nurse Annual Wellness Visit [address] [facility] Ancillary [phone] * Telephone Encounter - Rosio Galan RN - 04/15/2023 12:59 PM EDT [facility] radial saw operator Acute Call Date: 04/15/2023 Time: 12:59 PM Name: Stephanie Camp : 1955 Caller: Stephanie Relationship to No chief complaint on file. HPI: Stephanie Camp is a 68 year old female that is calling [facility] to report she woke [...] a COVID test to be done by [facility], does not have any test in the home Taking tylenol that is effective Nursing Assessment: Patient's chief complaint for this call: Other, describe Flu like symptoms Pain Denies pain Baseline Assessment Able to performing ADLs at baseline (walking, daily tasks, etc.): Yes Chief Complaint is related to a chronic condition: Unknown Patient prescribed oxygen? Yes, 3L/min Patient has been ordered DME equipment (assistive devices, respiratory equipment, etc.): Unknown Medication Reconciliation: (See medication list) Received flu shot this season: Yes Taking medication as ordered: Yes Medications ordered/taking to treat reason for call: Yes, PRN medication(s) tylenol Heart failure symptoms: No COPD exacerbation symptoms: No Reinforcement Education: Mucinex for increased congestion(blue box) Avoid dairy products Tylenol for headache/pain/fever Eat meals Salinenasal spray cough syrup as directed Take all medications as prescribed Stay hydrated with clear liquids. Good handwashing Use cool mist humidifier 24/48h phone calls added Does not have a nebulizer in her home, said she never had one but has Neb solution ordered Treatment/Plan: Level of call: Non-Acute Recommended treatment plan: Clinical advice given over the phone Call back instructions provided to patient. ROMEO Capps Surface Water Technician [facility] documented in this encounter Plan of Treatment Upcoming Encounters Date Type Specialty Care Team Description 04/15/2023 Home Visit [facility] Angi Herrera RN [address] [place] [address] 04/16/2023 Scheduled Telephone [facility] Nurse [facility] [address] [place] [address] 04/17/2023 Scheduled Telephone [facility], Nurse [facility] [address] [place] [address] 04/18/2023 Home Visit [facility] Vera Capellan RN [address] [place] [address] 04/21/2023 Office Visit Orthopedics Zack Teague DO [address] [place] [address] 04/21/2023 Imaging Radiology 05/03/2023 Home Visit [facility] Lucia Garcia CRNP [address] [place] [address] Jeanette Whiteside, Community Health Granulizing Machine Operator [address] [place] [address] 05/04/2023 Hospital Encounter Surgery Raj Ahn, DO [address] [place] [address] 05/04/2023 Surgery Surgery Raj Ahn, DO [address] [place] [address] INJECTION SACROILIAC JOINT 05/09/2023 Office Visit Family Medicine Galdino Andujar, DO [address] [place] [address] 05/16/2023 Office Visit Family Medicine Galdino Andujar, DO [address] [place] [address] 08/08/2023 Nurse Only Ancillary [place], Nurse Annual Wellness Visit [address] [place] [address] Scheduled Orders Name Type Priority Associated Diagnoses Orde r Schedule RESPIRATORY PATHOGEN PANEL, PCR Lab Routine Viral URI with cough Expected: 04/15/2023 (Approximate), Expires: 04/14/2024 Scheduled Procedures Name Priority Associated Diagnoses Date/Ti [...] Additional history exists CKD PHOS USE SMARTSET 00654 02/12/202401/24, 01/07/2022, 03/12/2021, Additional history exists CKD HGB USE SMARTSET 19637 03/17/202403/17, 03/17/2023, 11/01/2022, Additional history exists Colonoscopy [...] as of this encounter Visit Diagnoses Diagnosis Viral URI with cough- Primary Acute upper respiratory infections of unspecified site Inflammation of sacroiliac joint (HCC) Sacroiliitis, not elsewhere classified documented in this encounter Advance Directives Documents on File Type Date Recorded Patient Drier Operator Head Expl anation POLST 03/19/2020 4:25 PM POLST [...] the patient have Health Care Power of Parking Lot Signaler? No Healthcare Agents on File Name Relationship Healthcare Agent Relationship Communication Galdino Camp Other - (no specific identity) Health Care Power of Parking Lot Signaler Princess Allen Other - (no specific identity) Health Care Power of Parking Lot Signaler Care Teams Identity Management Consultant Relationship Specialty Start Date End Date Galdino Andujar, DO [address] [place] [address] PCP - General Internal Medicine 01/07/22 documented as of this encounter
--- OUTSIDE RECORDS SUMMARY | 2023-06-01 04:07 | External Medical Summary | Summary of Care ---
Author Name Unknown Organization [facility] Address [address] [place] [address] Phone [phone] Care Team Providers Care Cisco Network Engineer Name Role Phone Galdino Andujar DO Primary Care Provider [phone] Reason for Visit * Reason Onset Date Comments [facility]: Maintenance 04/16/2023 Encounter Details Date Type Department Care Team Description 04/16/2023 Scheduled Telephone [facility], [facility] [address] [facility] [place] [address] [facility], Nurse [facility] [address] [facility] [place] [address] Allergies Active Allergy Reactions Severity Noted Date [...] goal of less than 8.0% ([facility]) Take 1 Tablet (500 mg) by mouth [...] hemoglobin A1c goal of 7.0%-8.0% ([facility]) INJECT 58 UNITS UNDER THE SKIN IN [...] mRNA, LNP-s, No Pre serve, 2-Dose Series (Orderlord) 01/08/2021,12/18/2020 COVID-19, LNP-s, No Preserve , Navarro-sucrose, Ages 12+ (Pfizer) 2022,10/01/2021 Pneumococcal Conjugate Vacci ne, 20-valent ([id number]) 03/12/2022 Pneumococcal Polysaccharide PPV23 (Pneumovax) 08/22/2009,06/15/2006 Seasonal [...] encounter Miscellaneous Notes * Telephone Encounter - Mimi Tenorio RN - 04/16/2023 10:59 AM EDT Stephanie Camp is a 68 year old female, scheduled for a call this day. Stephanie was seen for an acute nurse visit yesterday due to concerns for covid. Patient reported low grade temp, sneezing, coughing/ not able to expectorate mucous, headache, lightheaded/ dizzy, reported feeling funny in her head and random blood sugar was 72. Home covid test negative at time of visit. Call to patient, verified patient by last name and . Doing better today. Blood sugar is 165 and states it has been stable. Still has some nasal congestion but feels same related to allergies. She will use flonase nasal spray if needed. She has no acute concerns at this time. Follow up call is scheduled for tomorrow and patient is aware. Encouraged patient to call [facility] with any questions or with any new or worsening symptoms. Mimi Tenorio RN, BSN Product Safety Consultant [facility] documented in this encounter Plan of Treatment Upcoming Encounters Date Type Specialty Care Team Description 04/17/2023 Scheduled Telephone [facility] [address] [place] [address] 04/18/2023 Home Visit [facility] Vera Capellan, RN [address] [place] [address] 04/21/2023 Office Visit Orthopedics Zack Teague, DO [address] [place] [address] 04/21/2023 Imaging Radiology 05/03/2023 Home Visit [facility] Lucia Garcia CRNP [address] [place] [address] Jeanette Whiteside, Community Health Bricklayer Paving Brick [address] [place] [address] 05/04/2023 Hospital Encounter Surgery Raj Ahn, DO [address] [place] [address] 05/04/2023 Surgery Surgery Raj Ahn, DO [address] [place] [address] INJECTION SACROILIAC JOINT 05/09/2023 Office Visit Family Medicine Galdino Andujar, DO [address] [place] [address] 05/16/2023 Office Visit Family Medicine Galdino Andujar, DO [address] [place] [address] 08/08/2023 Nurse Only Ancillary [place], Nurse Annual Wellness Visit [address] [place] [address] Scheduled Procedures Name Priority Associated Diagnoses Date/Ti [...] Additional history exists CKD PHOS USE SMARTSET 08729 02/12/202401/24, 01/07/2022, 03/12/2021, Additional history exists CKD HGB USE SMARTSET 42805 03/17/202403/17, 03/17/2023, 11/01/2022, Additional history exists Colonoscopy [...] Documents on File Type Date Recorded Patient Catalyst Concentration Operator Expl anation POLST 03/19/2020 4:25 PM [...] the patient have Health Care Power of Corporation Officer? No Healthcare Agents on File Name Relationship Healthcare Agent Relationship Communication Galdino Camp Other - (no specific identity) Health Care Power of Corporation Officer Princess Allen Other - (no specific identity) Health Care Power of Corporation Officer Care Teams Cisco Network Engineer Relationship Specialty Start Date End Date Galdino Andujar DO [address] [place] [address] PCP - General Internal Medicine 01/07/22 documented as of this encounter
--- OUTSIDE RECORDS SUMMARY | 2023-06-01 04:07 | External Medical Summary | Summary of Care ---
Author Name Unknown Organization [facility] Address [address] [place] [address] Phone [phone] Care Team Providers Care Fisheries Biologist Name Role Phone Galdino Andujar DO Primary Care Provider [phone] Reason for Visit * Reason Onset Date Comments Follow Up 04/17/2023 Encounter Details Date Type Department Care Team Description 04/17/2023 Scheduled Telephone [facility] [place], [facility] [address] [facility] [place] [address] [facility], Nurse [facility] [address] 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 Atherosclerosis of [place] coronary arter 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 12/31/2021 [...] Assessment & Plan: Home PT to start [place] filter in place 08/19/2014 History of pulmonary [...] as of this encounter (statuses as of 04/17/2023) Resolved Problems Problem Noted Date Resolved Date [...] as of this encounter (statuses as of 04/17/2023) Immunizations Name Administration Dates Next Due COVID-19 mRNA, LNP-s, No Pre serve, 2-Dose Series (Breaker) 01/08/2021,12/18/2020 COVID-19, LNP-s, No Preserve , Navarro-sucrose, Ages 12+ (Pfizer) 2022,10/01/2021 Pneumococcal Conjugate Vacci ne, 20-valent ([id number]) 03/12/2022 Pneumococcal Polysaccharide PPV23 (Pneumovax) 08/22/2009,06/15/2006 Seasonal [...] encounter Miscellaneous Notes * Telephone Encounter - Sadie Mahajan RN - 04/17/2023 10:42 AM EDT Stephanie Camp is a 68 year old female, scheduled for a call this day. Stephanie was seen for an acute nurse visit 04/15/23 due to concerns for covid. Patient reported low grade temp, sneezing, coughing/ not able to expectorate mucous, headache, lightheaded/ dizzy, reported feeling funny in her head and random blood sugar was 72. Home covid test negative at time of visit. Spoke with patient. Reports feeling a little better today. Congestion is starting to break up. Using Flonase. Blood sugar this am 165(same as yesterday). Offers no complaints. Encouraged to call [facility] with worsening symptoms. documented in this encounter Plan of Treatment Upcoming Encounters Date Type Specialty Care Team Description 04/18/2023 Home Visit [facility] Vera Capellan RN [address] [place] [address] 04/21/2023 Office Visit Orthopedics Zack Teague DO [address] [place] [address] 04/21/2023 Imaging Radiology 05/03/2023 Home Visit [facility] Lucia Garcia CRNP [address] [facility] [place] [address] Jeanette Whiteside, Community Health Crisis Clinician [address] [place] [address] 05/04/2023 Hospital Encounter Surgery Raj Ahn, DO [address] [place] [address] 05/04/2023 Surgery Surgery Raj Ahn, DO [address] [place] [address] INJECTION SACROILIAC JOINT 05/09/2023 Office Visit Family Medicine Galdino Andujar, [address] [place] [address] 05/16/2023 Office Visit Family Medicine Galdino Andujar DO [address] [place] [address] 08/08/2023 Nurse Only Ancillary [employer], Nurse Annual Wellness Visit [address] [facility] [address] [place] [address] Scheduled Procedures Name Priority Associated Diagnoses Date/Ti [...] Additional history exists CKD PHOS USE SMARTSET 66255 02/12/202401/24, 01/07/2022, 03/12/2021, Additional history exists CKD HGB USE SMARTSET 04754 03/17/202403/17, 03/17/2023, 11/01/2022, Additional history exists Colonoscopy [...] Documents on File Type Date Recorded Patient Recordist Chief Expl anation POLST 03/19/2020 4:25 PM POLST [...] the patient have Health Care Power of Travel Attendants? No Healthcare Agents on File Name Relationship Healthcare Agent Relationship Communication Galdino Camp Other - (no specific identity) Health Care Power of Travel Attendants Princess Other - (no specific identity) Health Care Power of Travel Attendants Care Teams Fisheries Biologist Relationship Specialty Start Date End Date Galdino Andujar, DO [address] [place] [address] PCP - General Internal Medicine 01/07/22 documented as of this encounter
--- OUTSIDE RECORDS SUMMARY | 2023-06-01 04:07 | External Medical Summary | Summary of Care ---
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 Contractor Name Role Phone Galdino Andujar DO Primary Care Provider [phone] Reason for Visit * Reason Comments Follow Up Ongoing L knee pain, xray updated, Encounter Details Date Type Department Care Team Description 04/21/2023 Office Visit Orthopaedics [facility] [address] [place] [address] Zack Teague DO [address] [place] [address] Primary osteoarthritis of one knee, left*; Chronic pain of left knee Allergies Active Allergy Reactions Severity Noted Date [...] as of this encounter (statuses as of 04/21/2023) Medications Medication Sig Dispensed Refills Start Date [...] hemoglobin A1c goal of less than 8.0% ([facility]) Take 1 Tablet (500 mg) [...] NYHA class 1 and CKD stage 3 ([facility]),Chronic diastolic congestive heart failure (HCC) [...] mellitus with hemoglobin A1c goal of 7.0%-8.0% ([facility]) INJECT 58 UNITS UNDER THE [...] 2.5 mg NEBULIZER PRN 01/07/2023 01/07/2024 Active Sodium Hyaluronate (Durolane) inj 60 mgIndications:Primary osteoarthritis of one knee, left 60 mg IX ONCE 04/21/2023 04/21/2023 Ended documented as of this encounter (statuses as of 04/21/2023) Active Problems Problem Noted Date Type 2 [...] 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/31/2021 Atherosclerosis of [place] coronary arter 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 12/31/2021 [...] Assessment & Plan: Home PT to start Datto filter in place 08/19/2014 History of pulmonary [...] as of this encounter (statuses as of 04/21/2023) Resolved Problems Problem Noted Date Resolved Date [...] as of this encounter (statuses as of 04/21/2023) Immunizations Name Administration Dates Next Due COVID-19 mRNA, LNP-s, No Pre serve, 2-Dose Series (Pfizer) 01/08/2021,12/18/2020 COVID-19, LNP-s, No Preserve , Navarro-sucrose, Ages 12+ (Pfizer) 2022,10/01/2021 Pneumococcal Conjugate Vacci ne, 20-valent (Pscknal82) 03/12/2022 Pneumococcal Polysaccharide PPV23 (Pneumovax) 08/22/2009,06/15/2006 Seasonal [...] Past Smokeless Tobacco: Never Tobacco Cessation:Counseling Given: Not Answered Alcohol Use Standard Drinks/Week Comments Not Currently [...] Sign Reading Time Taken Comments Blood Pressure - - Pulse - - Temperature - - Respiratory Rate - - Oxygen Saturation - - Inhaled Oxygen Concentration - - Weight 140.6 kg (310 lb) 04/21/2023 12:52 PM EDT Height 165.1 cm (5' 5") 04/21/2023 12:52 PM EDT Body Mass Index 51.59 04/21/2023 12:52 PM EDT documented in this encounter Progress Notes * Zack Teague, DO - 04/21/2023 1:18 PM EDT ORTHOPAEDIC SURGERY - Clinic Note SUBJECTIVE: Stephanie Camp is a 68 year old female. Chief Complaint Patient presents with Follow Up Ongoing L knee pain, xray updated, HPI: 68-year-old female presents today for re-evaluation of chronic left knee pain. She reports improvement in her hemoglobin A1c since her last evaluation. She has also reported a 50 lb weight loss.She is currently a 51 BMI. Her last A1c was 7.1. She is interested in further treatment for her left knee. She has failed previous conservative treatment to include medication, activity modification and corticosteroid injection. Review of Systems: Constitutional ROS: No fevers, sweats, or chills Cardiovascular ROS: No chest pain Gastrointestinal ROS: No abdominal pain Musculoskeletal/Extremities ROS: Pain, stiffness Neurologic ROS: No numbness or tingling Review of patient's allergies indicates: Allergen Reactions Bupropion Other reaction(s): Recurrent falls as per patient Jardiance [Empagliflozin] Other (Please comment) 3 yeast infections in 6 weeks after starting Codeine hallucination Farxiga [Dapagliflozin] Other (Please comment) Yeast infection Hay Fever [Pollen] Heparin Heparin Induced Thrombocytopenia Hydrocodone Neuro complications (Please comment) Morphine And Related Hallucinations Tetanus Toxoid Other (Please comment) Passed out Current Outpatient Medications Medication Sig Dispense Refill ONETOUCH [email or web address] LANCETS 33G MISC Check blood sugars 3-4 times daily 180 Each 5 oxygen GAS Use 3 L/min(Oxygen) as directed continuous. CPAP every night at bedtime. BD Pen Needle Short U/F 31G X 8 MM (Insulin Pen Needle) use five times daily 500 Each 3 OneTouch Ultra Blue In Vitro Strip (Glucose Blood) Check sugars 3-4 times daily, E11.9 400 Strip 3 Cholecalciferol 25 MCG (1000 UT) Oral Capsule [...] as needed for Nausea. 90 Tablet 6 NovoLOG FlexPen 100 UNIT/ML Subcutaneous Solution Pen-injector (insulin aspart) Inject 40-45 units with meals + sliding scale 1 units for every 25 units BG > 150. 121 mL 3 Magnesium Oxide 400 MG Oral Tablet TAKE [...] BY MOUTH AT BEDTIME 30 Tablet 5 traMADol HCl 50 MG Oral Tablet (Ultram) TAKE 1 TABLET BY MOUTH EVERY 8 HOURS NEEDED FOR SEVERE PAIN 90 Tablet 0 Furosemide 40 MG Oral Tablet (Lasix) TAKE [...] DAILY IN THE MORNING 30 Capsule 3 DULoxetine HCl 30 MG Oral Capsule Delayed Release Particles (Cymbalta) Take 1 Capsule by mouth in the morning. Do not cut, crush or chew. (Patient not taking: Reported on 04/14/2023) 30 Capsule 5 Acetaminophen 500 MG Oral Tablet (Tylenol) Take 2 Tablets by mouth in the morning and 2 Tabletsat noon and 2 Tablets before bedtime. 100 Tablet 0 DIURETIC TITRATION PLAN If no improvement on day 3, contact heart failure managing provider. 1 Each 0 Potassium Chloride Ayleen ER 20 MEQ [...] MORNING AND AT BEDTIME 60 Tablet 0 DULoxetine HCl 60 MG Oral Capsule Delayed Release Particles (Cymbalta) Take 1 Capsule by mouth in the morning. Take with 30mg cap to equal 90mg daily. oxyCODONE HCl 5 MG Oral Tablet Abuse-Deterrent Take 5 mg by mouth every 6 hours as needed for Pain, Severe. Docusate Sodium 100 MG Oral Capsule (Colace) Take 1 Capsule by mouth in the morning and 1 Capsule before bedtime. Mounjaro 2.5 MG/0.5ML Subcutaneous Solution Pen-injector (Tirzepatide) Inject 2.5 mg under the skin once a week. 2 mL 1 Clobetasol Propionate 0.05 % External Ointment (Temovate) Apply topically to affected area 2 times a day. Apply to leg rash 60 g 0 Current Facility-Administered Medications Medication Dose Route Frequency Provider Last Rate Last Admin Albuterol Sulfate (Proventil) (2.5 MG/3ML) 0.083% inhalation solution 2.5 mg 2.5 mg Nebulizer PRN Bryon Winter PA-C Albuterol Sulfate (Proventil) (5 MG/ML) 0.5% *conc* inhalation solution 2.5 mg 2.5 mg NebulizerPRThang Winter PA-C Sodium Hyaluronate (Durolane) inj 60 mg 60 mg Intra-Articular Once Zack Teague, DO Patient Active Problem List Diagnosis Code Dyslipidemia E78.5 Postsurgical hypothyroidism E89.0 ELISSA (obstructive sleep apnea) G47.33 Venous insufficiency I87.2 Essential hypertension with goal blood pressure less than 140/90 I10 History of pulmonary embolus (PE) Z86.711 Statin intolerance Z78.[address] Z95.828 Fibromyalgia M79.7 Abnormality of gait R26.9 Restless legs syndrome G25.81 Gastroesophageal reflux disease with esophagitis K21.00 Morbid obesity with BMI of 50.0-59.9, adult ([facility]) E66.01, Z68.43 Controlled substance agreement signed Z79.899 Lumbar radiculopathy M54.16 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 wpyxq2c chronic kidney disease (HCC) I13.0, I50.32, N18.32 Hyperparathyroidism, secondary renal ([facility]) N25.81 Vasculitis ([facility]) I77.6 Primary osteoarthritis of left knee M17.12 Spinal stenosis of lumbar region without neurogenic claudication M48.061 Heparin 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) ([facility]) D75.829 Atherosclerosis of [place] coronary arter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 I25.10 Carotid artery stenosis, asymptomatic, right I65.21 Encounter for long-term (current) use of other medications Z79.899 Type 2 diabetes mellitus with stage 3b chronic kidney disease ([facility]) E11.22, N18.32 Type 2 diabetes mellitus with hemoglobin A1c goal of less than 8.0% ([facility]) E11.9 Recurrent deep vein thrombosis (DVT) of both lower extremities ([facility]) I82.403 Chronic hypoxemic respiratory failure ([facility]) J96.11 Chronic kidney disease, stage 3b ([facility]) N18.32 ILD (interstitial lung disease) ([facility]) J84.9 Moderate episode of recurrent major depressive disorder ([facility]) F33.1 Primary osteoarthritis of both knees M17.0 Type 2 diabetes mellitus with stage 3b chronic kidney disease, with long- term current use of insulin ([facility]) E11.22, N18.32, Z79.4 Anxiety state F41.1 Sacroiliitis, not elsewhere classified ([facility]) M46.1 Past Medical History: Diagnosis Date ELSIE (acute kidney injury) ([facility]) 06/12/2018 Allergic rhinitis due to other allergen Chronic hypoxemic respiratory failure ([facility]) 01/07/2022 Diverticulosis of colon 01/28/2006 Essential hypertension with goal blood pressure less than 140/90 02/22/2014 ELLIE (generalized anxiety disorder) 09/13/[address] 08/19/2014 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[facility]) 08/22/2009 History of pulmonary embolus (PE) 07/16/2014 HTN, goal below 140/90 Impetigo 09/27/2018 Obesity, BMI not known Perforation of intestine ([facility]) 1996 COLON -- 1996 Pneumonia in aspergillosis(484.6) 09/14/2009 Recurrent deep vein thrombosis (DVT) of both lower extremities ([facility]) 01/07/2022 Sleep apnea, obstructive Spinal stenosis of lumbar region without neurogenic claudication 07/15/2020 Spontaneous pneumothorax 09/14/2009 Statin intolerance 07/16/2014 Type 2 diabetes mellitus with hemoglobin A1c goal of less than 8.0% ([facility]) 01/07/2022 Past Surgical History: Procedure Laterality Date ARTHROPLASTY KNEE TOTAL Right 07/24/14 R COLONOSCOPY, DIAGNOSTIC (RECTUM) 02/18/2016 normal, repeat 10 yrs/[facility] COLONOSCOPY, GI REFERRAL OP 01/28/06 diverticulosis--repeat 10 years INCISION OF WINDPIPE, PLANNED 06/03/2011 TRACHEOSTOMY PLANNED performed by DANNY HOLDER at OR [facility] INJECT DX/THER SUBSTANCE INTERLAMINAR LUMBAR/SACRAL W IMAGE GUIDE 05/26/2020 INJECTION SPINE LUMBAR OR SACRAL performed by Raj Ahn DO at OR [facility] INJECT DX/THER SUBSTANCE INTERLAMINAR LUMBAR/SACRAL W IMAGE GUIDE 05/14/2021 INJECTION SPINE LUMBAR OR SACRAL performed by Raj Ahn DO at OR [facility] INJECT DX/THER SUBSTANCE INTERLAMINAR LUMBAR/SACRAL W IMAGE GUIDE 08/13/2021 INJECTION SPINE LUMBAR OR SACRAL performed by Raj Ahn DO at OR [facility] KNEE ARTHROSCOPY/DEBRIDEMENT 07/[address] PERMANENT GASTROSTOMY TUBE 09/06/09 GASTROSTOMY WITH CONSTUCTION GASTRIC TUBE performed by AMADOU NUNEZ at [facility] REMOVAL OF THYROID GLAND 06/15/2011 THYROIDECTOMY INCLUDING SUBSTERNAL THYROID CERVICAL APPROACH performed by DANNY HOLDER at [facility] REMOVE GALLBLADDER 09/06/09 CHOLECYSTECTOMY performed by AMADOU NUNEZ at [facility] REPAIR RECURRENT INCISIONAL HERNIA 1998 REVISION OF COLOSTOMY, SIMPLE 1998 SACROILIAC JOINT INJECT W/GUIDANCE 07/28/2020 INJECTION SACROILIAC JOINT performed by Raj Ahn DO at OR [facility] SACROILIAC JOINT INJECT W/GUIDANCE 03/03/2022 INJECTION SACROILIAC JOINT performed by Raj Ahn DO at OR [facility] SUTURE, LARGE INTESTINE W/COLOSTOMY 1996 perforation R colon with colostomy VENA CAVA FILTER/LIGATION/CLIP 08/19/09 Frank filter placement through the right femoral 08/19/[address] Lerma at [facility] Social History Tobacco Use Smoking status: Former Packs/day: 1.00 Years: 15.00 Pack years: 15.00 Types: Cigarettes Quit date: 08/26/1997 Years since quittin.6 Passive exposure: Past Smokeless tobacco: Never Vaping Use Vaping Use: Never used Substance Use Topics Alcohol use: Not Currently Comment: rare Drug use: No Family history: Noncontributory OBJECTIVE: Diagnostic Testing: Updated x-rays of the left knee demonstrate severe tricompartmental degenerative change most notable within the medial compartment with agci-bf-zdee articulation. Findings have progressed as comparedto previous films years ago. Vital Signs: Ht 1.651 m (5' 5") | Wt (!) 140.6 kg (310 lb) | LMP 03/11/2003 | BMI 51.59 kg/m | BSA 2.54 m Physical Exam: Well developed/nourished; obese; alert, awake, oriented x3; normal affect; no acute distress Examination of the left knee reveals no gross edema, ecchymosis or erythema. There is no palpable effusion. Tenderness palpation along the medial and lateral joint line. She exhibits good overall mobility from roughly 5 shy of terminal extension and 110 flexion. Patellofemoral crepitus noted. Collateral stability intact. She has good quad strength. Sensation intact. Pulses palpable. ASSESSMENT: Primary osteoarthritis of one knee, left (Primary) - ARTHROCENT ASP &/OR INJ MAJOR JX/BURSA W/O US - Sodium Hyaluronate (Durolane) inj 60 mg Chronic pain of left knee - XR KNEE 3 VIEWS Follow-up: Return in about 2 months (around 06/22/2023). PLAN: We discussed her improvement as far as weight loss and reduction of her hemoglobin A1c. I would like her to continue to work towards candidacy for joint replacement. In the interim we will focus on further conservative management. We will pursue a Durolane injection today. She was in agreement. This was well tolerated. Injection Procedure Note: LEFT Knee: Time out: Prior to injection, a time out was called to confirm the administration of appropriate medicine, patient name, procedure and confirm to the best of our ability and knowledge the presence of any necessary risks and benefits. Patient verbalizes understanding. Consent obtained. Sterile techinique applied. Skin sterilized with alcohol swab and ChloraPrep. The left knee was injected using 1.5 inch, 22 gauge needle. Injected with 3 mL Durolane 60 mg per 3 mL. Skin cleansed with alcohol and Band-Aid placed. Patient tolerated procedure with no significant bleeding or adverse reaction. Patient instructed to call or return to clinic for fever or warmth and redness at injection site for potential infection. Zack Teague DO This chart was completed in part utilizing [employer] Speech Voice Recognition Software. Grammatical errors, random word insertions, pronoun errors, and incomplete sentences are an occasional consequence of this system due to software limitations, ambient noise, and hardware issues. Any formal questions or concerns about the content, text, or information contained within the body of this dictation should be directly addressed to the provider for clarification. Zack Teague DO 04/21/2023 1:18 PM documented in this encounter Nursing Notes * Xiang Elizabeth LPN - 04/21/2023 12:53 PM EDT Chief Complaint Patient presents with Follow Up Ongoing L knee pain, xray updated, documented in this encounter Plan of Treatment Upcoming Encounters Date Type Specialty Care Team Description 04/21/2023 Imaging Radiology Encounter for screening mammogram for malignant neoplasm of breast 04/26/2023 Home Visit [facility] Vera Capellan RN [address] [place] [address] 05/03/2023 Home Visit [facility] Lucia Garcai CRNP [address] [place] [address] Jeanette Whiteside, [facility]ia[facility] [address] [place] [address] 05/04/2023 Hospital Encounter Surgery Raj Ahn DO [address] [place] [address] 05/04/2023 Surgery Surgery Raj Ahn DO [address] [place] [address] INJECTION SACROILIAC JOINT 05/09/2023 Office Visit Family Medicine Galdino Andujar, DO [address] [facility] [place] [address] 05/16/2023 Office Visit Family Medicine Galdino Andujar, DO [address] [facility] [place] [address] 06/17/2023 Office Visit Orthopedics Andrea Paez PA-C [address] [place] [address] 08/08/2023 Nurse Only Ancillary Raysal, Nurse Annual Wellness Visit [address] [place] [address] Pending Results Name Type Priority Associated Diagnoses Date /Time XR KNEE 3 VIEWS Medical Imaging Routine Chronic pain of left knee 04/21/2023 1:03 PM EDT Scheduled Orders Name Type Priority Associated Diagnoses Orde r Schedule ARTHROCENT ASP &/OR INJ MAJOR JX/BURSA W/O US Procedures Routine Primary osteoarthritis of one knee, left Ordered: 04/21/2023 Scheduled Procedures Name Priority Associated Diagnoses Date/Ti [...] Additional history exists CKD PHOS USE SMARTSET 33387 02/12/202401/24, 01/07/2022, 03/12/2021, Additional history exists CKD HGB USE SMARTSET 70498 03/17/202403/17, 03/17/2023, 11/01/2022, Additional history exists Colonoscopy [...] as of this encounter Visit Diagnoses Diagnosis Primary osteoarthritis of one knee, left- Primary Chronic pain of left knee Pain in joint, lower leg Encounter for screening mammogram for malignant neoplasm of breast Other screening mammogram Inflammation of sacroiliac joint (HCC) Sacroiliitis, not elsewhere classified documented in this encounter Administered Medications Inactive Administered Medications - up to 3 most recent administrations Medication Order MAR Action Action Date Dose Rate Site Sodium Hyaluronate (Durolane) inj 60 mg 60 mg, Intra-Articular, ONCE, On Jeanette 04/21/23 at 1400, For 1 dose Given 04/21/2023 1:26 PM EDT 60 mg Knee Left documented in this encounter Advance Directives Documents on File Type Date Recorded Patient Flight Dispatcher Expl anation POLST 03/19/2020 4:25 PM POLST [...] the patient have Health Care Power of Dental Mold Maker? No Healthcare Agents on File Name Relationship Healthcare Agent Relationship Communication Galdino Camp Other - (no specific identity) Health Care Power of Dental Mold Maker Princess Other - (no specific identity) Health Care Power of Dental Mold Maker Care Teams Brickmason Contractor Relationship Specialty Start Date End Date Galdino Andujar, DO [address] [facility] [place] [address] PCP - General Internal Medicine 01/07/22 documented as of this encounter
--- OUTSIDE RECORDS SUMMARY | 2023-06-01 04:07 | External Medical Summary ---
Author Name UNSPECIFIED Address Unknown Organization [facility] History of Encounters Reason for Assessment: Start of care - f urther visits planned Inpatient discharge facility: Past 14 Da ys: Discharged From Inpatient Rehab Facility Most Recent Inpatient Discharge Date: Functional Assessment Patient Living Situation: Patient Lives Alone: Around the clock When Dyspneic: With moderate exerti on (e.g., while dressing, using commode or bedpan, walking distances less than 20 feet) Urinary Incontinence or Urin elif Catheter Present: Patient is incontinent Bowel Incontinence Frequency: Very rarel y or never has bowel incontinence When Anxious (Reported or Observed): Sarah ly, but not constantly Cognitive and Behavioral and Psychiatric Symptoms: None [...] Current: Management Of Oral Medications: Able to take medication(s) at the correct times if: (a) individual dosages are prepared in advance by another person; OR (b) another person develops a drug diary or chart Current: Management Of Injec table Medications: Able to take injectable medication(s) at the correct times if: (a) individual syringes are prepared in advance by another person; OR (b) another person develops a drug diary or chart. Problems Primary Home Care Diagnosis ICD Code: G8 9.29, Other chronic pain Home Care Diagnosis 1: ICD Code: M54.50^ ^ Home Care Diagnosis 1: Severity Ratin Home Care Diagnosis 2: ICD Code: M25.562 , Pain in left knee Home Care Diagnosis 2: Severity Ratin Home Care Diagnosis 3: ICD Code: M79.7, Fibromyalgia Home Care Diagnosis 3: Severity Ratin Home Care Diagnosis 4: ICD Code: J96.11, Chronic respiratory failure with hypoxia Home Care Diagnosis 4: Severity Ratin Home Care Diagnosis 5: ICD Code: E11.22, Type 2 diabetes mellitus w diabetic chronic kidney disease Home Care Diagnosis 5: Severity Ratin
--- OUTSIDE RECORDS SUMMARY | 2023-06-01 04:08 | External Medical Summary | Summary of Care ---
Author Name Unknown Organization [facility] Address [address] [place] [address] Phone [phone] Care Team Providers Care Full Stack Php Developer Name Role Phone Galdino Andujar DO Primary Care Provider [phone] Reason for Referral * Evaluate & Treat - Unlimited Visits (Within 30 days (routine)) - Authorized Specialty Diagnoses / Procedures Referred By Ethan chao Referred To Contact Physical Therapy / Physical Medicine And Rehab Diagnoses Abnormality of gait Lumbar radiculopathy Ambulatory dysfunction Galdino Andujar DO [address] [place] [address] Referral ID Status Reason Start Date Expiration Date Visits Requested Visits Authorized [id number] Authorized Specialty Services Required 04/14/[phone] Question Answer Referral Priority Within 30 days (routine) Comments Specific for electric wheel chair/scooter evaluation Reason for Visit * Reason Onset Date Comments Follow Up Hospital Follow-Up 04/14/2023 Encounter Details Date Type Department Care Team Description 04/14/2023 Office Visit Family Practice [facility], [place] [address] [place] [address] Galdino Andujar DO [address] [place] [address] Abnormality of gait*; Ambulatory dysfunction; Lumbar radiculopathy; 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 3b chronic kidney disease (HCC); Type 2 diabetes mellitus with stage 3b chronic kidney disease, with long-term current use of insulin ([facility]); Chronic hypoxemic respiratory failure (HCC); ILD (interstitial lung disease) ([facility]); Moderate episode of recurrent major depressive disorder ([facility]); Dyslipidemia; Postsurgical hypothyroidism; ELISSA (obstructive sleep apnea); Venous insufficiency; History of pulmonary embolus (PE); Frank filter in place; Fibromyalgia; Statin intolerance; Gastroesophageal reflux disease with esophagitis without hemorrhage; Hyperparathyroidism, secondary renal (HCC); Restless legs syndrome; Hospital discharge follow-up; Dermatitis Allergies Active Allergy Reactions Severity Noted Date [...] as of this encounter (statuses as of 04/14/2023) Medications Medication Sig Dispensed Refills Start Date End Date Status ONEKATHIE BISWAS LANCETS 33G MISC Check blood sugars [...] hemoglobin A1c goal of less than 8.0% ([facility]) Take 1 Tablet (500 mg) by [...] mellitus with hemoglobin A1c goal of 7.0%-8.0% ([facility]) Inject 40-45 units with meals + sliding scale 1 units for every 25 units BG > 150. 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, NYHA class 1 and CKD stage 3 ([facility]),Chronic diastolic congestive heart failure (HCC) TAKE [...] mellitus with hemoglobin A1c goal of 7.0%-8.0% ([facility]) INJECT 58 UNITS UNDER THE SKIN IN THE EVENING 60 mL 3 03/15/2023 Active Potassium Chloride Ayleen ER 20 MEQ Oral Tablet Extended ReleaseIndications: 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, NYHA class 1 and CKD stage 3 ([facility]),Chronic diastolic congestive heart failure (HCC) TAKE [...] not cut, crush or chew. 30 Capsule 03/18/2023 Active Additional Information Patient not taking.Reported [...] 1 Capsule before bedtime. 0 04/14/2023 Active Clobetasol Propionate 0.05 % External Ointment (Temovate)Indicatio ns:Dermatitis Apply topically to affected area 2 times a day. Apply to leg rash 60 g 0 04/14/2023 Active Blood Glucose Monitoring Suppl ([employer] ULTRA 2) w/Device KIT Use to test [...] To affected area. 60 g 0 04/11/2023 07/20/20 23 Discontinu ed(Medicat ion/Dose Changed) Hospital, Clinic, or [...] as of this encounter (statuses as of 04/14/2023) Active Problems Problem Noted Date Type 2 [...] 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/31/2021 Atherosclerosis of [place] coronary arter 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 12/31/2021 [...] as of this encounter (statuses as of 04/14/2023) Resolved Problems Problem Noted Date Resolved Date [...] as of this encounter (statuses as of 04/14/2023) Immunizations Name Administration Dates Next Due COVID-19 mRNA, LNP-s, No Pre serve, 2-Dose Series (Pictorious) 01/08/2021,12/18/2020 COVID-19, LNP-s, No Preserve , Navarro-sucrose, Ages 12+ (Pfizer) 2022,10/01/2021 Pneumococcal Conjugate Vacci ne, 20-valent ([id number]) 03/12/2022 Pneumococcal Polysaccharide PPV23 (Pneumovax) 08/22/2009,06/15/2006 Seasonal [...] Sign Reading Time Taken Comments Blood Pressure 138/80 04/14/2023 1:05 PM EDT Pulse 86 04/14/2023 1:05 PM EDT Temperature 35.8 C (96.4 F) 04/14/2023 1:05 PM ED T Respiratory Rate 16 04/14/2023 1:05 PM EDT Oxygen Saturation 96% 04/14/2023 1:05 PM EDT 3 LPM Inhaled Oxygen Concentration - - Weight 141.7 kg (312 lb 6.4 oz) 04/14/2023 1:05 PM EDT Height 165.1 cm (5' 5") 04/14/2023 1:05 PM EDT Body Mass Index 51.99 04/14/2023 1:05 PM EDT documented in this encounter Progress Notes * Galdino Andujar, - 04/14/2023 1:40 PM EDT SUBJECTIVE: Stephanie Camp is a 68 year old female. Chief Complaint Patient presents with Follow Up Hospital Follow-Up Recent Admission: Patient was recently admitted to [facility] . The date of discharge was 04/08/2023. Discharge report received and reviewed. HPI: Patient is a 67 year old female with a history of DM type II, CKD stage III, Diastolic CHF, chronichypoxic respiratory failure, HTN, recurrent DVT, IVC filter, hyperlipidemia, statin intolerance, GERD, lumbar disc disease, restless leg syndrome, sleep apnea on CPAP, heparin induced thrombocytopenia, and ambulatory dysfunction that is seen for hospital and SNF follow up. The patient was admitted to [facility] 03/24/2023 - 04/01/2023 due to back pain and difficulty with ambulation. Oxycodone before bed was added. Patient was seen by Psychiatry. Patient was transferred to [facility] on 04/01/2023 for Physical Therapy and discharged on 04/08/2023. The patient has continued left knee pain and lowback pain. SI joint injections scheduled for 05/04/2023. Depression has not improved with Duloxetine 90 mg daily. If no improvement in 3 weeks will start transition back to Sertraline. The patient is unable to walk and has continued significant pain. She is requesting evaluation for motorized wheelchair. Chronic shortness of breath is unchanged. Patient Active Problem List Diagnosis Code Dyslipidemia [...] Morbid obesity with BMI of 50.0-59.9, adult ([facility]) E66.01, Z68.43 Controlled substance agreement signed Z79.899 Lumbar radiculopathy M54.16 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 fcocr5h chronic kidney disease ([facility]) I13.0, I50.32, N18.32 Hyperparathyroidism, secondary renal ([facility]) N25.81 Vasculitis ([facility]) I77.6 Primary osteoarthritis of left knee M17.12 Spinal stenosis of lumbar region without neurogenic claudication M48.061 Heparin 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) ([facility]) D75.829 Atherosclerosis [place] coronary arter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 I25.10 Carotid artery stenosis, asymptomatic, right I65.21 Encounter for long-term (current) use of other medications Z79.899 Type 2 diabetes mellitus with stage 3b chronic kidney disease ([facility]) E11.22, N18.32 Type 2 diabetes mellitus with hemoglobin A1c goal of less than 8.0% ([facility]) E11.9 Recurrent deep vein thrombosis (DVT) of both lower extremities ([facility]) I82.403 Chronic hypoxemic respiratory failure ([facility]) J96.11 Chronic kidney disease, stage 3b ([facility]) N18.32 ILD (interstitial lung disease) ([facility]) J84.9 Moderate episode of recurrent major depressive disorder ([facility]) F33.1 Primary osteoarthritis of both knees M17.0 Type 2 diabetes mellitus with stage 3b chronic kidney disease, with long- term current use of insulin ([facility]) E11.22, N18.32, Z79.4 Anxiety state F41.1 Sacroiliitis, not elsewhere classified ([facility]) M46.1 Current Outpatient Medications Medication Sig Dispense Refill Cholecalciferol 25 MCG (1000 UT) Oral Capsule [...] by mouth at bedtime. 30 Tablet 5 Ondansetron HCl 4 MG Oral [...] DAILY IN THE MORNING 30 Tablet 5 Trulicity 4.5 MG/0.5ML Subcutaneous Solution Pen-injector (Dulaglutide) Inject 1 pen under the skin weekly 6 mL 1 traZODone HCl 100 MG Oral Tablet (Desyrel) [...] 2 Tablets before bedtime. 100 Tablet 0 Levothyroxine Sodium 200 MCG Oral [...] 6 hours as needed for Pain, Severe. Triamcinolone Acetonide 0.1 % External Cream (Aristocort) Apply topically to affected area 2 times a day. To affected area. 60 g 0 Docusate Sodium 100 MG Oral Capsule (Colace) Take 1 Capsule by mouth in the morning and 1 Capsule before bedtime. ONETOUCH DELICA LANCETS 33G MISC Check blood sugars 3-4 times daily 180 Each 5 oxygen GAS Use 3 L/min(Oxygen) as directed continuous. CPAP every night at bedtime. BD Pen Needle Short U/F 31G X 8 MM (Insulin Pen Needle) use five times daily 500 Each 3 OneTouch Ultra Blue In Vitro Strip (Glucose Blood) Check sugars 3-4 times daily, E11.9 400 Strip 3 Dicyclomine HCl 20 MG Oral Tablet (Bentyl) [...] unless instructed by provider 15 Tablet 5 Senna-Time S 8.6-50 MG Oral Tablet (senna-docusate) TAKE 1 TABLET BY MOUTH IN THE MORNING AND AT BEDTIME 60 Tablet 5 DULoxetine HCl 30 MG Oral Capsule Delayed Release Particles (Cymbalta) Take 1 Capsule by mouth in the morning. Do not cut, crush or chew. (Patient not taking: Reported on 04/14/2023) 30 Capsule 5 DIURETIC TITRATION PLAN If no improvement on day 3, contact heart failure managing provider. 1 Each 0 Potassium Chloride Ayleen ER 20 MEQ Oral Tablet Extended Release Take only as directed with diuretic titration plan 30 Tablet 0 Current Facility-Administered Medications Medication Dose Route Frequency Provider Last Rate Last Admin Albuterol Sulfate (Proventil) (2.5 MG/3ML) 0.083% inhalation solution 2.5 mg 2.5 mg Nebulizer PRN Bryon Winter PA-C Albuterol Sulfate (Proventil) (5 MG/ML) 0.5% *conc* inhalation solution 2.5 mg 2.5 mg NebulizerPRN Bryon Winter PA-C Current and discharge medications have been reconciled. Review of patient's allergies indicates: Allergen Reactions Bupropion Other reaction(s): Recurrent falls as per patient Jardiance [Empagliflozin] Other (Please comment) 3 yeast infections in 6 weeks after starting Codeine hallucination Farxiga [Dapagliflozin] Other (Please comment) Yeast infection Hay Fever [Pollen] Heparin Heparin Induced Thrombocytopenia Hydrocodone Neuro complications (Please comment) Morphine And Related Hallucinations Tetanus Toxoid Other (Please comment) Passed out OBJECTIVE: BP 138/80 | Pulse 86 | Temp 35.8 C (96.4 F) | Resp 16 | Ht 1.651 m (5' 5") | Wt (!) 141.7 kg (312 lb 6.4 oz) | LMP 03/11/2003 | SpO2 96% Comment: 3 LPM | BMI 51.99 kg/m | BSA 2.55 m REVIEW OF SYSTEMS: Review of Systems Constitutional: Positive for appetite change and fatigue. Negative for unexpected weight change. HENT: Negative for congestion, sore throat and trouble swallowing. Respiratory: Positive for shortness of breath. Negative for cough and wheezing. Cardiovascular: Positive for leg swelling. Negative for chest pain and palpitations. Gastrointestinal: Negative for abdominal pain, blood in stool, constipation, diarrhea, nausea and vomiting. Genitourinary: Negative for dysuria and hematuria. Musculoskeletal: Positive for arthralgias, back pain and gait problem. Neurological: Negative for dizziness, syncope and headaches. Psychiatric/Behavioral: Negative for confusion, decreased concentration and sleep disturbance. PHYSICAL EXAM: BP 138/80 | Pulse 86 | Temp 35.8 C (96.4 F) | Resp 16 | Ht 1.651 m (5' 5") | Wt (!) 141.7 kg (312 lb 6.4 oz) | LMP 03/11/2003 | SpO2 96% Comment: 3 LPM | BMI 51.99 kg/m | BSA 2.55 m Physical Exam Vitals and nursing note [...] Edema present. Left lower leg: Edema present. Skin: Comments: Maculopapular dermatitis on left leg. Neurological: Mental Status: She is alert and oriented to person, place, and time. Motor: Weakness present. Gait: Gait abnormal. Psychiatric: Mood and Affect: Mood is depressed. Affect is blunt and flat. ASSESSMENT/PLAN Abnormality of gait (Primary) Refer to PT for mobility evaluation Ambulatory dysfunction Refer to PT for mobility evaluation Lumbar radiculopathy Refer to PT for mobility evaluation 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 3b chronic kidney disease (HCC) Continue Furosemide Type 2 diabetes mellitus with stage 3b chronic kidney disease, with long-term current use of insulin (HCC) Continue Metformin, Tresiba, and Novolog Stop Trulicity Start Mounjaro Chronic hypoxemic respiratory failure (HCC) ILD (interstitial lung disease) (HCC) Moderate episode of recurrent major depressive disorder (HCC) Continue Duloxetine for now Dyslipidemia Postsurgical hypothyroidism Continue Levothyroxine ELISSA (obstructive sleep apnea) Venous insufficiency History of pulmonary embolus (PE) Continue Apixaban [place] filter in place Fibromyalgia Statin intolerance Gastroesophageal reflux disease with esophagitis without hemorrhage Continue Omeprazole Hyperparathyroidism, secondary renal (HCC) Restless legs syndrome Hospital discharge follow-up - DISCH MED RECON CUR MED LIS Follow Up: Return in about 3 weeks (around 05/05/2023), or if symptoms worsen or fail to improve. Galdino Andujar DO * Frances Duong [facility] - 04/14/2023 1:13 PM EDT Oxycodone - usually just at bedtime with 2 acetaminophen Tramadol - usually 1-2 times a day with 2 acetaminophen Baclofen dose increased in February from 5mg to 10mg documented in this encounter Plan of Treatment Upcoming Encounters Date Type Specialty Care Team Description 04/18/2023 Home Visit [facility] Vera Capellan RN [address] [place] [address] 04/21/2023 Office Visit Orthopedics Zack Teague DO [address] [place] [address] 04/21/2023 Imaging Radiology 05/03/2023 Home Visit [facility] Lucia Garcia CRNP [address] [place] [address] Jeanette Whiteside, Community Health Major Assembly Inspector [address] [place] [address] 05/04/2023 Hospital Encounter Surgery Cousins, Raj Callum, DO [address] [place] [address] 05/04/2023 Surgery Surgery Raj Ahn, DO [address] [place], [place] [address] INJECTION SACROILIAC JOINT 05/09/2023 Office Visit Family Medicine Galdino Andujar, DO [address] [place] [address] 05/16/2023 Office Visit Family Medicine Galdino Andujar, DO [address] [place] [address] 08/08/2023 Nurse Only [employer], Nurse Annual Wellness Visit [address] [address] Scheduled Procedures Name Priority Associated Diagnoses Date/Ti me INJECTION SACROILIAC JOINT Inflammation of sacroiliac joint (HCC) 05/04/2023 11:00 AM EDT COLONOSCOPY FLEXIBLE PROXIMAL DIAGNOSTIC Recall Colon cancer screening Scheduled Referrals Name Type Priority Associated Diagnoses Orde r Schedule PHYSICAL THERAPY REFERRAL OP Referral Within 30 days (routine) Abnormality of gait Lumbar radiculopathy Ambulatory dysfunction Ordered: 04/14/2023 Health Maintenance Due Date Last Done Comments Cologuard 2000 Fecal Occult Blood Test 2000 Sigmoidoscopy 2000 COVID-19 Vaccine (5 - Pfizer series) 06/08/2022 2022, 10/01/2021, 01/08/2021, Additional history exists Mammogram 02/11/2023 02/11/2022, 0 02/2021, 07/10/2019, Additional history exists DIABETES-EYE EXAM 05/24/2023 05/24/2022, , 04/07/2020, Additional [...] Additional history exists CKD PHOS USE SMARTSET 91436 02/12/202401/24, 01/07/2022, 03/12/2021, Additional history exists CKD HGB USE SMARTSET 81495 03/17/202403/17, 03/17/2023, 11/01/2022, Additional history exists Depression Screening, Annual for Pts 12 and Over 03/17/2024 03/17/2023, 06/12/2018 Colonoscopy 02/17/2026 02/18/2016, 01/25, 01/28/2006, Additional [...] as of this encounter Visit Diagnoses Diagnosis Abnormality of gait- Primary Ambulatory dysfunction Lumbar radiculopathy Thoracic or lumbosacral neuritis or radiculitis, unspecified 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 3b chronic kidney disease (HCC) Type 2 diabetes mellitus with stage 3b chronic kidney disease, with long-term current use of insulin (HCC) Chronic hypoxemic respiratory failure (HCC) Chronic respiratory failure ILD (interstitial lung disease) (HCC) Postinflammatory pulmonary fibrosis Moderate episode of recurrent major depressive disorder (HCC) Dyslipidemia Other and unspecified hyperlipidemia Postsurgical hypothyroidism ELISSA (obstructive sleep apnea) Obstructive sleep apnea (adult) (pediatric) Venous insufficiency Unspecified venous (peripheral) insufficiency History of pulmonary embolus (PE) Personal history of pulmonary embolism [place] filter in place Other postprocedural status Fibromyalgia Mylagia and myositis, unspecified Statin intolerance Other drug allergy Gastroesophageal reflux disease with esophagitis without hemorrhage Hyperparathyroidism, secondary renal (HCC) Secondary hyperparathyroidism (of renal origin) Restless legs syndrome Restless legs syndrome (RLS) Hospital discharge follow-up Other follow-up examination Dermatitis Contact dermatitis and other eczema, due to unspecified cause Inflammation of sacroiliac joint (HCC) Sacroiliitis, not elsewhere classified documented in this encounter Advance Directives Documents on File Type Date Recorded Patient Bingo Cashier Expl anation POLST 03/19/2020 4:25 PM POLST [...] the patient have Health Care Power of Auto Machinist? No Healthcare Agents on File Name Relationship Healthcare Agent Relationship Communication Galdino Camp Other - (no specific identity) Health Care Power of Auto Machinist Princess Allen Other - (no specific identity) Health Care Power of Auto Machinist Care Teams Full Stack Php Developer Relationship Specialty Start Date End Date Galdino Andujar, [address] [facility] [place] [address] PCP - General Internal Medicine 01/07/22 documented as of this encounter
--- OUTSIDE RECORDS SUMMARY | 2023-06-01 04:08 | External Medical Summary | Summary of Care ---
Author Name Unknown Organization [facility] Address [address] [place] [address] Phone [phone] Care Team Providers Care Soft Tile Setter Name Role Phone Galdino Andujar DO Primary Care Provider [phone] Reason for Visit * Reason Onset Date Comments Appointment 04/06/2023 [facility] Encounter Details Date Type Department Care Team Description 04/06/2023 Telephone Family Practice [address] [place] [address] Galdino Andujar DO [address] [place] [address] Appointment ([facility] ) Allergies Active Allergy Reactions Severity Noted Date [...] as of this encounter (statuses as of 04/07/2023) Medications Medication Sig Dispensed Refills Start Date End Date Status ONETOUCH DELICA LANCETS 33G MISC Check blood sugars 3-4 times daily 180 Each 5 08/01/2018 Active oxygen GASIndications:ELISSA (obstructive sleep apnea) Use 3 L/min(Oxygen) as directed continuous. 0 11/28/2019 Active Blood Glucose Monitoring Suppl (PartSimple ULTRA 2) w/Device KIT Use to test BG values 1 Kit 0 05/20/2020 Active CPAP every night at bedtime. 0 Active BD Pen Needle Short U/F 31G X 8 MM (Insulin Pen Needle) use five times daily 500 Each 3 11/04/2021 Active Safety HoundTouch Ultra Blue In Vitro Strip (Glucose Blood) [...] A1c goal of less than 8.0% ([facility]) Take 1 Tablet (500 mg) by mouth [...] with hemoglobin A1c goal of 7.0%-8.0% ([facility]) Inject 40-45 units with meals + sliding [...] Oral Tablet (Levoxyl)Indications :Hyperparathyroidism , secondary renal ([facility]) TAKE 1 TABLET BY MOUTH ONCE DAILY IN THE MORNING 30 Tablet 01/12/2023 Active Trulicity 4.5 MG/0.5ML Subcutaneous Solution Pen-injector (Dulaglutide) Inject 1 pen under the skin weekly 6 mL 1 01/11/2023 Active Senna-Time S 8.6-50 MG Oral Tablet [...] AT BEDTIME 84 Tablet 4 02/10/2023 Active Ibuprofen 200 MG Oral Tablet (Motrin) Take 2 Tablets by mouth at bedtime as needed for Pain, Mild or Pain, Moderate. 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, NYHA class 1 and CKD stage 3 ([facility]),Chronic diastolic congestive heart failure ([facility]) TAKE 1 TABLET BY MOUTH IN THE MORNING AND AT BEDTIME 60 Tablet 5 03/16/2023 Active Omeprazole 20 MG Oral Capsule Delayed Release (PriLOSEC)Indication s:Gastroesophageal reflux disease with esophagitis without hemorrhage TAKE 1 CAPSULE BY MOUTH ONCE DAILY IN THE MORNING 30 Capsule 03/16/2023 Active clonazePAM 0.5 MG Oral Tablet (KlonoPIN)Indication s:Restless legs syndrome,Anxiety state TAKE 1 TABLET BY MOUTH IN THE MORNING AND AT BEDTIME 60 Tablet 0 03/16/2023 Active Sertraline HCl 50 MG Oral Tablet (Zoloft) Take 1 Tablet by mouth in the morning. 30 Tablet 03/18/2023 Active DULoxetine HCl 30 MG Oral Capsule Delayed Release Particles (Cymbalta) Take 1 Capsule by mouth in the morning. Do not cut, crush or chew. 30 Capsule 03/18/2023 Active Acetaminophen 500 MG Oral Tablet (Tylenol) [...] MEDICATIONS 100 Tablet 1 08/31/2022 3 Active Hospital, Clinic, or Other Facility Administered Medication Ordered Dose Route Frequency Start Date End Date Status Albuterol Sulfate (Proventil) (2.5 MG/3ML) 0.083% inhalation solution 2.5 mgIndications:Chronic hypoxemic respiratory failure ([facility]),SOB (shortness of breath),Small airways disease,ILD (interstitial lung disease) (HCC) 2.5 mg NEBULIZER PRN 01/07/2023 01/07/2024 Active Albuterol Sulfate (Proventil) (5 MG/ML) 0.5% *conc* inhalation solution 2.5 mgIndications:Chronic hypoxemic respiratory failure (HCC),SOB (shortness of breath),Small airways disease,ILD (interstitial lung disease) (HCC) 2.5 mg NEBULIZER PRN 01/07/2023 01/07/2024 Active documented as of this encounter (statuses as of 04/07/2023) Active Problems Problem Noted Date Type 2 [...] 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/31/2021 Atherosclerosis of [place] coronary arter 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 12/31/2021 [...] Assessment & Plan: Home PT to start [place] filter in place 08/19/2014 History of pulmonary [...] as of this encounter (statuses as of 04/07/2023) Resolved Problems Problem Noted Date Resolved Date [...] as of this encounter (statuses as of 04/07/2023) Immunizations Name Administration Dates Next Due COVID-19 mRNA, LNP-s, No Pre serve, 2-Dose Series (Pfizer) 01/08/2021,12/18/2020 COVID-19, LNP-s, No Preserve , Navarro-sucrose, Ages 12+ (Pfizer) 2022,10/01/2021 Pneumococcal Conjugate Vacci ne, 20-valent ([id number]) 03/12/2022 Pneumococcal Polysaccharide PPV23 (Pneumovax) 08/22/2009,06/15/2006 Seasonal [...] got money to buy more. Never true 03/17/2023 Within the past 12 months, t he food you bought just didn't last and you didn't have money to get more. Never true 03/17/2023 Sex Assigned at Date Recorded Female 11/07/2019 2:[address] Job Start Date Occupation Industry Not on file Not on file Not on file documented as of this encounter Miscellaneous Notes * Telephone Encounter - ELISSA Silva - 04/07/2023 3:13 PM EDT Appts placed on schedule. * Telephone Encounter - Shira Gross LPN - 04/07/2023 2:48 PM EDT Called to check status on patient, she is currently at [facility] for PT. States she is doing better. She states pain remains, has appt on 05/12/[address] Ahn. Please schedule patient 04/14/2023 at 1 PM. Patient is aware and will comply. Please also schedule with pharmacy. Thank you * Telephone Encounter - Galdino Andujar DO - 04/06/2023 4:57 PM EDT Schedule 1 week after discharge. See what the emergency is. [facility] would not discharge the patient if she is unstable. * Telephone Encounter - ELISSA Silva - 04/06/2023 2:49 PM EDT Pt calling to set up an discharge appt with Dr Pratima ELIAS. States she isn't getting out until Tuesday and needs to see him enmanuel. Please call her at [phone]. Nothing avail until two weeks out * Telephone Encounter - ELISSA Snider - 04/06/2023 1:05 PM EDT Patient is being discharged from [facility] on 04/08/2023 No appt available Please advise documented in this encounter Plan of Treatment Upcoming Encounters Date Type Specialty Care Team Description 04/08/2023 Scheduled Telephone [facility] Jennifer Sweet, CM [address] [facility] [place] [address] 04/09/2023 Scheduled Telephone [facility] Veena, Nurse Virginia Hale [address] [place] [address] 04/11/2023 Home Visit [facility] Vera Capellan RN [address] [place] [address] 04/14/2023 Office Visit Family Medicine Galdino Andujar, DO [address] [facility] [place] [address] 04/14/2023 Pharmacy [facility], Pharmacist [address] [facility] [address] [facility] [place] [address] 04/21/2023 Office Visit Orthopedics Zack Teague DO [address] [place] [address] 05/03/2023 Home Visit [facility] Lucia Garcia CRNP [address] [place] [address] Jeanette Whiteside, Community Health Mushroom Farmer [address] [place] [address] 05/04/2023 Hospital Encounter Surgery Raj Ahn, DO [address] [place] [address] 05/04/2023 Surgery Surgery Raj Ahn, DO [address] [place] [address] INJECTION SACROILIAC JOINT 05/16/2023 Office Visit Family Medicine Galdino Andujar, DO [address] [facility] [place] [address] 08/08/2023 Nurse Only [employer], Nurse Annual Wellness Visit [address] [facility] [place] [address] Scheduled Procedures Name Priority Associated Diagnoses Date/Ti [...] 02/11/2023 02/11/2022, 02/2021, 07/10/2019, Additional history exists DIABETES-EYE EXAM [...] Additional history exists CKD PHOS USE SMARTSET 00966 02/12/202401/24, 01/07/2022, 03/12/2021, Additional history exists CKD HGB USE SMARTSET 55346 03/17/202403/17, 03/17/2023, 11/01/2022, Additional history exists Depression [...] Documents on File Type Date Recorded Patient Ship Boss Expl anation POLST 03/19/2020 4:25 PM POLST [...] the patient have Health Care Power of Quarter Inspector? No Healthcare Agents on File Name Relationship Healthcare Agent Relationship Communication Galdino Camp Other - (no specific identity) Health Care Power of Quarter Inspector Princess Thrashery Other - (no specific identity) Health Care Power of Quarter Inspector Care Teams Soft Tile Setter Relationship Specialty Start Date End Date Galdino Andujar, DO [address] [place] [address] PCP - General Internal Medicine 01/07/22 documented as of this encounter
--- OUTSIDE RECORDS SUMMARY | 2023-06-01 04:08 | External Medical Summary | Summary of Care ---
Author Name Unknown Organization [facility] Address [address] [place] [address] Phone [phone] Care Team Providers Care Outside Plant Cable Engineer Name Role Phone ZiaandrewsGaldino DO Primary Care Provider [phone] Reason for Visit * Reason Onset Date Comments [facility]: Maintenance 04/07/2023 Encounter Details Date Type Department Care Team Description 04/07/2023 Telephone [facility], [facility] [address] [place] [address] Simi Land, Community Health Single Pointed Operator [facility]: Maintenance Allergies Active Allergy [...] 0 11/28/2019 Active Blood Glucose Monitoring Suppl (BashaTOUCH ULTRA 2) w/Device KIT Use to test [...] hemoglobin A1c goal of less than 8.0% ([facility]) Take 1 Tablet (500 mg) by [...] THE MORNING 30 Tablet 5 01/12/2023 Active Trulicity 4.5 MG/0.5ML Subcutaneous Solution [...] mellitus with hemoglobin A1c goal of 7.0%-8.0% ([facility]) INJECT 58 UNITS UNDER THE SKIN IN THE EVENING 60 mL 3 03/15/2023 Active Potassium Chloride Ayleen ER 20 MEQ Oral Tablet Extended ReleaseIndications: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, NYHA class 1 and CKD stage 3 ([facility]),Chronic diastolic congestive heart failure ([facility]) TAKE 1 TABLET BY MOUTH IN THE MORNING AND AT BEDTIME 60 Tablet 5 03/16/2023 Active Omeprazole 20 MG Oral Capsule Delayed Release (PriLOSEC)Indication s:Gastroesophageal reflux disease with esophagitis without hemorrhage TAKE 1 CAPSULE BY MOUTH ONCE DAILY IN THE MORNING 30 Capsule 3 03/16/2023 Active clonazePAM 0.5 MG Oral Tablet [...] inhalation solution 2.5 mgIndications:Chronic hypoxemic respiratory failure ([facility]),SOB (shortness of breath),Small airways disease,ILD (interstitial lung disease) ([facility]) 2.5 mg NEBULIZER PRN 01/07/2023 01/07/2024 Active [...] 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/31/2021 Atherosclerosis of [place] coronary arter 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 12/31/2021 [...] mRNA, LNP-s, No Pre serve, 2-Dose Series (WholeWorldBand) 01/08/2021,12/18/2020 COVID-19, LNP-s, No Preserve , Navarro-sucrose, Ages 12+ (Pfizer) 2022,10/01/2021 Pneumococcal Conjugate Vacci ne, 20-valent ([id number]) 03/12/2022 Pneumococcal Polysaccharide PPV23 (Pneumovax) 08/22/2009,06/15/2006 Seasonal [...] encounter Miscellaneous Notes * Telephone Encounter - Simi Land [facility] Single Pointed Operator - 04/07/2023 9:36 AM EDT Outbound call to patient regarding appointment making her aware Vera Capellan will be coming instead of Brooke Jose Had to leave a voicemail asking her to call if she has any questions Simi Land, ELISSA Electronically signed by Simi Land [facility] Single Pointed Operator at 04/07/2023 9:37 AM EDT documented in this encounter Plan of Treatment Upcoming Encounters Date Type Specialty Care Team Description 04/08/2023 Scheduled Telephone [facility] Jennifer Sweet, [address] [facility] [place] [address] 04/09/2023 Scheduled Telephone [facility], Nurse [facility] [address] [place] [address] 04/11/2023 Home Visit [facility] Vera Capellan RN [address] [place] [address] 04/21/2023 Office Visit Orthopedics Zcak Teague DO [address] [place] [address] 05/03/2023 Home Visit [facility] Lucia Garcia CRNP [address] [place] [address] Jeanette Whiteside, Community Health Single Pointed Operator [address] [place] [address] 05/04/2023 Hospital Encounter Surgery Raj Ahn, DO [address] [place] [address] 05/04/2023 Surgery Surgery Raj Ahn, DO [address] [place] [address] INJECTION SACROILIAC JOINT 05/16/2023 Office Visit Family Medicine Galdino Andujar, DO [address] [place] [address] 08/08/2023 Nurse Only Ancillary [place], Nurse Annual Wellness Visit [address] [place] [address] Scheduled Procedures Name Priority Associated Diagnoses Date/Ti [...] Additional history exists CKD PHOS USE SMARTSET 96387 02/12/202401/24, 01/07/2022, 03/12/2021, Additional history exists CKD HGB USE SMARTSET 33545 03/17/202403/17, 03/17/2023, 11/01/2022, Additional history exists Depression [...] Documents on File Type Date Recorded Patient Greenhouse Transplanter Expl anation POLST 03/19/2020 4:25 PM POLST [...] the patient have Health Care Power of Harness Brusher? No Healthcare Agents on File Name Relationship Healthcare Agent Relationship Communication Galdino Camp Other - (no specific identity) Health Care Power of Harness Brusher Princess Allen Other - (no specific identity) Health Care Power of Harness Brusher Care Teams Outside Plant Cable Engineer Relationship Specialty Start Date End Date Galdino Andujar, [address] [place] [address] PCP - General Internal Medicine 01/07/22 documented as of this encounter
--- OUTSIDE RECORDS SUMMARY | 2023-06-01 04:08 | External Medical Summary | Summary of Care ---
Author Name Unknown Organization [facility] Address [address] [place] [address] Phone [phone] Care Team Providers Care Hog Slaughterer Name Role Phone Galdino Andujar DO Primary Care Provider [phone] Reason for Visit * Reason Onset Date Comments [facility]: Maintenance 04/06/2023 Encounter Details Date Type Department Care Team Description 04/06/2023 Telephone [facility], [facility] [address] [place] [address] [facility], Nurse [facility] [address] [place] [address] [facility]: Maintenance Allergies Active Allergy [...] as of this encounter (statuses as of 04/06/2023) Medications Medication Sig Dispensed Refills Start Date End Date Status ONETOUCH DELFRANTZ LANCETS 33G MISC Check blood sugars 3-4 times daily 180 Each 5 08/01/2018 Active oxygen GASIndications:ELISSA (obstructive sleep apnea) Use 3 L/min(Oxygen) as directed continuous. 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/31/2021 Atherosclerosis of [place] coronary arter 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 12/31/2021 [...] as of this encounter (statuses as of 04/06/2023) Resolved Problems Problem Noted Date Resolved Date Food insecurity 11/08/2022 12/08/2022 Overview: Per [facility] [...] as of this encounter (statuses as of 04/06/2023) Immunizations Name Administration Dates Next Due COVID-19 mRNA, LNP-s, No Pre serve, 2-Dose Series (Pfizer) 01/08/2021,12/18/2020 COVID-19, LNP-s, No Preserve , Navarro-sucrose, Ages 12+ (Pfizer) 2022,10/01/2021 Pneumococcal Conjugate Vacci ne, 20-valent ([id number]) 03/12/2022 Pneumococcal Polysaccharide PPV23 (Pneumovax) 08/22/2009,06/15/2006 Seasonal [...] encounter Miscellaneous Notes * Telephone Encounter - Lisandra Saucedo LPN - 04/06/2023 1:13 PM EDT Received call erick Meyers at [facility] Patient to d/c home on 04/08 Cancelled visit with Brooke Jose today TT to Brooke to make aware ROSA call on 04/09 ROSA visit with RNCM on 04/11 documented in this encounter Plan of Treatment Upcoming Encounters Date Type Specialty Care Team Description 04/07/2023 Office Visit Family Medicine Galdino Andujar DO [address] [facility], [place] [address] 04/07/2023 Office Visit [facility], Pharmacist [address] [facility] [address] [place] [address] 04/08/2023 Scheduled Telephone [facility] Jennifer Sweet, [address] [facility] [place] [address] 04/09/2023 Scheduled Telephone [facility] Veena, Nurse Virginia Hale [address] [place] [address] 04/11/2023 Home Visit [facility] Brooke Jose RN [address] [place] [address] 04/21/2023 Office Visit Orthopedics Zack Teague DO [address] [facility] [place] [address] 05/03/2023 Home Visit [facility] Lucia Garcia CRNP [address] [place] [address] Jeanette Whiteside, Community Health [employer] Founder [address] [place] [address] 05/04/2023 Hospital Encounter Surgery TiothaddeusRaj Callum, DO [address] [place] [address] 05/04/2023 Surgery Surgery TioRaj travis, DO [address] [place] [address] INJECTION SACROILIAC JOINT 05/16/2023 Office Visit Family Medicine Galdino Andujar, DO [address] [place] [address] 08/08/2023 Nurse Only Ancillary [employer], Nurse Annual Wellness Visit [address] [facility] [address] [place] [address] Scheduled Procedures Name Priority Associated Diagnoses Date/Ti [...] Additional history exists CKD PHOS USE SMARTSET 13568 02/12/202401/24, 01/07/2022, 03/12/2021, Additional history exists CKD HGB USE SMARTSET 83016 03/17/202403/17, 03/17/2023, 11/01/2022, Additional history exists Depression [...] Documents on File Type Date Recorded Patient Alum Plant Operator Expl anation POLST 03/19/2020 4:25 [...] the patient have Health Care Power of Carpentry Foreman? No Healthcare Agents on File Name Relationship Healthcare Agent Relationship Communication Galdino Camp Other - (no specific identity) Health Care Power of Carpentry Foreman Princess Other - (no specific identity) Health Care Power of Carpentry Foreman Care Teams Hog Slaughterer Relationship Specialty Start Date End Date Galdino Andujar, DO [address] [place] [address] PCP - General Internal Medicine 01/07/22 documented as of this encounter
--- OUTSIDE RECORDS SUMMARY | 2023-06-01 04:08 | External Medical Summary | Summary of Care ---
Author Name Unknown Organization [facility] Address [address] [place] [address] Phone [phone] Care Team Providers Care Copywriting Intern Name Role Phone Lexii Andujar DO Primary Care Provider [phone] Reason for Visit * Reason Comments eRx-Medication Refill Encounter Details Date Type Department Care Team Description 04/07/2023 Refill Family Practice [address] [place] [address] [place] [address] Lexii Andujar DO [address] [place], [place] [id number] Restless legs syndrome; Anxiety state Allergies Active Allergy Reactions Severity Noted Date [...] as of this encounter (statuses as of 04/10/2023) Medications Medication Sig Dispensed Refills Start Date End Date Status ONETOUCH DELICA LANCETS 33G MISC Check blood sugars 3-4 times daily 180 Each 5 8 Active oxygen GASIndications:ELISSA (obstructive sleep apnea) Use 3 L/min(Oxygen) as directed continuous. 0 0 Active Blood Glucose Monitoring Suppl ([employer] ULTRA 2) w/Device KIT Use to test BG values 1 Kit 0 0 Active CPAP every night at bedtime. 0 Active BD Pen Needle Short U/F 31G X 8 MM (Insulin Pen Needle) use five times daily 500 Each 3 2 Active IMNEXTTouch Ultra Blue In Vitro Strip (Glucose Blood) [...] hemoglobin A1c goal of less than 8.0% ([facility]) Take 1 Tablet (500 mg) by mouth [...] for Nausea. 90 Tablet 6 2 Active NovoLOG FlexPen 100 UNIT/ML Subcutaneous Solution Pen-injector (insulin aspart)Indications: Type 2 diabetes mellitus with hemoglobin A1c goal of 7.0%-8.0% (HCC) Inject 40-45 units with meals + sliding scale 1 units for every 25 units BG > 150. 121 mL 3 3 Active Magnesium Oxide 400 MG Oral TabletIndications:B [...] Oral Tablet (Levoxyl)Indication s:Hyperparathyroidi sm, secondary renal ([facility]) TAKE 1 TABLET BY MOUTH ONCE DAILY IN THE MORNING 30 Tablet 5 3 Active Trulicity 4.5 MG/0.5ML Subcutaneous Solution Pen-injector (Dulaglutide) Inject 1 pen under the skin weekly 6 mL 1 3 Active Senna-Time S 8.6-50 MG Oral [...] AT BEDTIME 84 Tablet 4 3 Active Ibuprofen 200 MG Oral Tablet (Motrin) Take 2 Tablets by mouth at bedtime as needed for Pain, Mild or Pain, Moderate. 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 30 Tablet 5 3 Active DULoxetine HCl 30 MG Oral Capsule Delayed Release Particles (Cymbalta) Take 1 Capsule by mouth in the morning. Do not cut, crush or chew. 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 TENOSYNOVITIS FOOT-ANKLE 12/26/2001 017 Goiter 01/13/2000 06/28/2011 BACKACHE NOS 08/26/1999 05/24/2017 OBESITY, UNSPECIFIED 08/26/1999 12/23/2009 Overview: Per Obesity Taxonomy Perforation of intestine 017 Overview: COLON Diverticulitis documented as of this encounter (statuses as of 04/10/2023) Immunizations Name Administration Dates Next Due COVID-19 mRNA, LNP-s, No Pre serve, 2-Dose Series (Tonara) 01/08/2021,12/18/2020 COVID-19, LNP-s, No Preserve , Nvaarro-sucrose, Ages 12+ (Pfizer) 2022,10/01/2021 Pneumococcal Conjugate Vacci ne, 20-valent ([id number]) 03/12/2022 Pneumococcal Polysaccharide PPV23 (Pneumovax) 08/22/2009,06/15/2006 Seasonal [...] Telephone Encounter - Lexii Andujar DO - 04/10/2023 8:26 AM EDTSigned Prescriptions: Disp Refills clonazePAM 0.5 MG Oral Tablet (KlonoPIN) 60 Tab*0 Sig: TAKE 1 TABLET BY MOUTH IN THE MORNING AND AT BEDTIMEAuthorizing Provider: LEXII ANDUJAR * Telephone Encounter - Josef Betts [facility] - 04/10/2023 7:52 AM EDT Pending Prescriptions: Disp Refills clonazePAM 0.5 MG Oral Tablet [Pharmacy Me*60 Tab*0 Sig: TAKE 1 TABLET BY MOUTH IN THE MORNING AND AT BEDTIME * Telephone Encounter - Josef Betts [facility] - 04/10/2023 7:49 AM EDT I have reviewed the patients controlled substance dispensing history in the Prescription Drug Monitoring Program in compliance with the [facility] regulations before prescribing a controlled substance. PDMP checked on 04/10/2023. Pending Prescriptions: Disp Refills clonazePAM 0.5 MG Oral Tablet (KlonoPIN) *60 Tab*0 Sig: TAKE 1 TABLET BY MOUTH IN THE MORNING AND AT BEDTIME Last Visit: 03/17/2023 (in office), 02/28/2023 (telemedicine) Next Visit: 04/14/2023 Date medication was last filled: 04/01 Date medication is due for refill: 04/08 Pharmacy: [facility] [address] Is this request for a controlled substance? Yes and Urine Drug Screen was completed Toxicology results: Results for orders placed or performed in [...] results can be found in Results Review. Please approve if appropriate. Thanks, Josef Betts PharmD Clinical Pharmacist [facility] ([facility]) (formerly Telepharmacy) [phone] 04/10/2023,7:52 AM documented in this encounter Plan of Treatment Upcoming Encounters Date Type Specialty Care Team Description 04/11/2023 Home Visit [facility] Vera Capellan, RN [address] [place] [address] 04/14/2023 Office Visit Family Medicine Lexii Andujar, DO [address] [place] [address] 04/14/2023 Pharmacy [facility], Pharmacist [address] [place] [address] [place] [address] 04/21/2023 Office Visit Orthopedics Zack Teague, DO [address] [place] [address] 05/03/2023 Home Visit [facility] Lucia Garcia CRNP [address] [place] [address] Jeanette Whiteside, Community Health Hand Reamer [address] [place] [address] 05/04/2023 Hospital Encounter Surgery Raj Ahn, DO [address] [place] [address] 05/04/2023 Surgery Surgery Raj Ahn, DO [address] [place] [address] INJECTION SACROILIAC JOINT 05/16/2023 Office Visit Family Medicine Lexii Andujar, DO [address] [place] [address] 08/08/2023 Nurse Only [employer], Nurse Annual Wellness Visit [address] [facility], [place] [address] Scheduled Procedures Name Priority Associated Diagnoses Date/Ti [...] Additional history exists CKD PHOS USE SMARTSET 97231 02/12/202401/24, 01/07/2022, 03/12/2021, Additional history exists CKD HGB USE SMARTSET 61109 03/17/202403/17, 03/17/2023, 11/01/2022, Additional history exists Depression [...] as of this encounter Visit Diagnoses Diagnosis Restless legs syndrome Restless legs syndrome (RLS) Anxiety state Anxiety state, unspecified Inflammation of sacroiliac joint (HCC) Sacroiliitis, not elsewhere classified documented in this encounter Advance Directives Documents on File Type Date Recorded Patient Survey Research Analyst Expl anation POLST 03/19/2020 4:25 PM POLST [...] the patient have Health Care Power of Tester Printed Circuit Boards? No Healthcare Agents on File Name Relationship Healthcare Agent Relationship Communication Lexii Camp Other - (no specific identity) Health Care Power of Tester [employer]ed Circuit Boards Princess Allen Other - (no specific identity) Health Care Power of Tester [employer]ed Circuit Boards Care Teams Copywriting Intern Relationship Specialty Start Date End Date Lexii Andujar, [address] [place] [address] PCP - General Internal Medicine 01/07/22 documented as of this encounter
--- OUTSIDE RECORDS SUMMARY | 2023-06-01 04:08 | External Medical Summary | Summary of Care ---
Author Name Unknown Organization [facility] Address [address] [place] [address] Phone [phone] Care Team Providers Care Sole Assessor Name Role Phone Galdino Andujar DO Primary Care Provider [phone] Reason for Visit * Reason Onset Date Comments [facility]: Acute 04/09/2023 Encounter Details Date Type Department Care Team Description 04/09/2023 Scheduled Telephone [facility], [facility] [address] [facility] [place] [address] [facility], Nurse [facility] 132 [facility] [place] [address] Allergies Active Allergy Reactions Severity Noted Date [...] as of this encounter (statuses as of 04/09/2023) Medications Medication Sig Dispensed Refills Start Date End Date Status ONETOUCH DELICA LANCETS 33G MISC Check blood sugars 3-4 times daily 180 Each 5 08/01/2018 Active oxygen GASIndications:ELISSA (obstructive sleep apnea) Use 3 L/min(Oxygen) as directed continuous. 0 11/28/2019 Active Blood Glucose Monitoring Suppl ([employer]ispay ULTRA 2) w/Device KIT Use to test BG values 1 Kit 0 05/20/2020 Active CPAP every night at bedtime. 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/31/2021 Atherosclerosis of [place] coronary arter 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 12/31/2021 [...] as of this encounter (statuses as of 04/09/2023) Resolved Problems Problem Noted Date Resolved Date [...] as of this encounter (statuses as of 04/09/2023) Immunizations Name Administration Dates Next Due COVID-19 mRNA, LNP-s, No Pre serve, 2-Dose Series (Pfizer) 01/08/2021,12/18/2020 COVID-19, LNP-s, No Preserve , Navarro-sucrose, Ages 12+ (Pfizer) 2022,10/01/2021 Pneumococcal Conjugate Vacci ne, 20-valent ([id number]) 03/12/2022 Pneumococcal Polysaccharide PPV23 (Pneumovax) 08/22/2009,06/15/2006 Seasonal [...] encounter Miscellaneous Notes * Telephone Encounter - Abi Monge RN - 04/09/2023 10:00 AM EDT ROSA call for SNF discharge. Call placed to pt. Confirmed name and . Pt denies any concerns sincerecent SNF discharge. She is adjusting well at home. She has medications present. Denies med changes other than oxy for back pain. She describes her pain as moderate at present. Did weigh this morning- weight 310 lbs. She did not check her glucose yet this morning but will do so before eating. She has glucose meter and supplies. She is waiting for Dexcom 7 to arrive. Denies issues or concerns. Reviewed upcoming [facility] appt on 04/11/23. She has [facility] intake line and will call for concerns. documented in this encounter Plan of Treatment Upcoming Encounters Date Type Specialty Care Team Description 04/11/2023 Home Visit [facility] Vera Capellan RN [address] [place] [address] 04/14/2023 Office Visit Family Medicine Galdino Andujar DO 293 [place] [address] 04/14/2023 Pharmacy [facility], Pharmacist [address] [facility] [address] [place] [address] 04/21/2023 Office Visit Orthopedics Zack Teague DO [address] [place] [address] 05/03/2023 Home Visit [facility] Lucia Garcia CRNP [address] [facility] [place] [address] Jeanette Whiteside, Community Health Logistics Solution Manager [address] [place] [address] 05/04/2023 Hospital Encounter Surgery Raj Ahn, DO [address] [place] [address] 05/04/2023 Surgery Surgery Raj Ahn, DO [address] [place] [address] INJECTION SACROILIAC JOINT 05/16/2023 Office Visit Family Medicine Galdino Andujar, DO [address] [place] [address] 08/08/2023 Nurse Only [employer], Nurse Annual Wellness Visit [address] [facility] [address] [place] [address] Scheduled Procedures Name Priority Associated Diagnoses Date/Ti [...] Additional history exists CKD PHOS USE SMARTSET 32400 02/12/202401/24, 01/07/2022, 03/12/2021, Additional history exists CKD HGB USE SMARTSET 97101 03/17/202403/17, 03/17/2023, 11/01/2022, Additional history exists Depression [...] Documents on File Type Date Recorded Patient Cell Plasterer Expl anation POLST 03/19/2020 4:25 PM POLST [...] the patient have Health Care Power of Interactive Account Manager? No Healthcare Agents on File Name Relationship Healthcare Agent Relationship Communication Galdino Camp Other - (no specific identity) Health Care Power of Interactive Account Manager Princess Allen Other - (no specific identity) Health Care Power of Interactive Account Manager Care Teams Sole Assessor Relationship Specialty Start Date End Date Galdino Andujar, DO [address] [place] [address] PCP - General Internal Medicine 01/07/22 documented as of this encounter
--- OUTSIDE RECORDS SUMMARY | 2023-06-01 04:08 | External Medical Summary | Summary of Care ---
Author Name Unknown Organization [facility] Address [address] [place] [address] Phone [phone] Care Team Providers Care Cutter Gas Name Role Phone Galdino Andujar DO Primary Care Provider [phone] Reason for Visit * Reason Comments [facility]: Maintenance Encounter Details Date Type Department Care Team Description 04/11/2023 Home Visit [facility], [facility] [address] [place] [address] Vera Capellan, RN [address] [place] [address] Allergies Active Allergy Reactions Severity Noted Date [...] as of this encounter (statuses as of 04/11/2023) Medications Medication Sig Dispensed Refills Start Date End Date Status ONETOUCH DELICA LANCETS 33G MISC Check blood sugars 3-4 times daily 180 Each 5 08/01/2018 Active oxygen GASIndications:ELISSA (obstructive sleep apnea) Use 3 L/min(Oxygen) as directed continuous. 0 11/28/2019 Active Blood Glucose Monitoring Suppl ([employer] ULTRA 2) w/Device KIT Use to test [...] hemoglobin A1c goal of less than 8.0% ([facility]) Take 1 Tablet (500 mg) by [...] mellitus with hemoglobin A1c goal of 7.0%-8.0% (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),Chronic diastolic congestive heart failure ([facility]) TAKE 1 TABLET BY MOUTH IN [...] Capsule 5 03/18/2023 Active Additional Information Patient taking differently:30 mg Oral Daily(AM),Do not cut, crush or chew - take with 60mg cap to equal 90mg daily, Reported on 04/11/2023 Acetaminophen 500 MG Oral Tablet (Tylenol) Take [...] as needed for Pain, Severe. 0 Active Sertraline HCl 50 MG Oral Tablet (Zoloft) Take 1 Tablet by mouth in the morning. 30 Tablet 5 03/18/2023 04/11/20 23 Discontinu ed(Medicat ion List Clean Up) Hospital, Clinic, or Other Facility Administered Medication [...] as of this encounter (statuses as of 04/11/2023) Active Problems Problem Noted Date Type 2 [...] as of this encounter (statuses as of 04/11/2023) Resolved Problems Problem Noted Date Resolved Date [...] as of this encounter (statuses as of 04/11/2023) Immunizations Name Administration Dates Next Due COVID-19 mRNA, LNP-s, No Pre serve, 2-Dose Series (Pfizer) 01/08/2021,12/18/2020 COVID-19, LNP-s, No Preserve , Navarro-sucrose, Ages 12+ (Pfizer) 2022,10/01/2021 Pneumococcal Conjugate Vacci ne, 20-valent ([id number]) 03/12/2022 Pneumococcal Polysaccharide PPV23 (Pneumovax) 08/22/2009,06/15/2006 Seasonal [...] Sign Reading Time Taken Comments Blood Pressure 140/70 04/11/2023 2:45 PM EDT Pulse 90 04/11/2023 2:45 PM EDT Temperature 36.2 C (97.1 F) 04/11/2023 2 :45 PM EDT Respiratory Rate 20 04/11/2023 2:45 PM EDT Oxygen Saturation 94% 04/11/2023 2:4 5 PM EDT o2 on at 3 l/min via nc Inhaled Oxygen Concentration - - Weight - - Height - - Body Mass Index - - documented in this encounter Progress Notes * Vera Capellan RN - 04/11/2023 4:00 PM EDT Images from the original note were not included. [facility] Law Enforcement Director Visit Date: 04/11/2023 Time: 2:42 PM Name: Stephanie Camp : 1955 Current Concerns: Pt seen for ROSA #1 Pt admitted to [facility] 03/24-04/01/23 for intractable back pain, h/o sciatica, h/o fibromyalgia Was then transferred to [facility] for rehab until discharged on 04/08/23. Was previously admitted 03/07 - 03/11/23 for back pain and cellulitis Rash of LLE Pt reports she was treated with Triamcinolone while in [facility] - she reports it did help with the itching but did not help the rash improve TE sent to [facility] to see if Triamcinolone can be ordered or if other recommendations. Pt reports blood sugars have been "not too bad" since home from [facility] Blood sugars ranging 101-243 Has caregiver twice a week for [address] [facility] to be starting for SN, PT, OT Reviewed med discharge list from [facility] and pill packs New meds are Duloxetine increased to 90mg daily and oxycodone 5mg every 6 hrs as needed Pt has duloxetine 60mg in pill pack so [facility] was put in bottle for pt to take in addition to pill packs [facility] given to fill for extra dose of Duloxetine increased dose and Oxycodone - pt has 4 weeks left of all other meds Physical Exam: BP 140/70 | Pulse 90 | Temp 36.2 C (97.1 F) | Resp 20 | LMP 03/11/2003 | SpO2 94% Comment: o2 on at 3 l/min via nc Pain 7 Physical Exam Constitutional: General: She is not in acute distress. Appearance: She is obese. Cardiovascular: Rate and Rhythm: Normal rate and regular rhythm. Heart sounds: Normal heart sounds. Pulmonary: Effort: Pulmonary effort is normal. Breath sounds: Normal breath sounds. Abdominal: Palpations: Abdomen is soft. Musculoskeletal: Right lower leg: Edema (1) present. Left lower leg: Edema (+1) present. Skin: General: Skin is warm and dry. Neurological: Mental Status: She is alert and oriented to person, place, and time. Problems/Symptoms: Review of Systems Constitutional: Negative. HENT: Negative. Eyes: Negative. Respiratory: Positive for shortness of breath (AVENDAÑO - at baseline). Cardiovascular: Positive for leg swelling. Gastrointestinal: Negative. Endocrine: Negative. Genitourinary: Negative. Musculoskeletal: Positive for arthralgias, back pain and gait problem. Hematological: Bruises/bleeds easily. Psychiatric/Behavioral: Negative. Medication Reconciliation: (See medication list) Does patient take medications as ordered: Yes Patient Well Being: PHQ2/9: No questionnaires available. No change in living situation Denies recent falls [facility] Completed this Visit: Yes. [facility]: Reason Completed: Status post ED visit/hospital admission [facility] Interventions: Fall education provided, reviewed/provided Fall brochure Advanced Care Planning: POLST. Patient's Goals of Care: 1. Less pain 2. Get out of my apartment - have motorized chair 3. Walk better Reinforcement/Education: DIABETES: -Blood sugar testing schedule: Twice a [...] if at night -increased fatigue or vertigo Educated on home safety: Create a fall [...] exercises that will be right for you. Reinforced safety education and fall prevention. and Reinforced medication regimen. Timing., Dosing. and Purspose. Treatment/Plan: Continue meds as prescribed/reviewed Received MOW's INSTRUCT AT EACH VISIT: CALL [facility] PRIOR TO GOING TO ER FOR ANY REASON [facility] Conductor DRY WT as of 08/03/22 - 313lbs Frequent UTI's - typically asymptomatic until has fever, has standing order for urine culture Ambulate with roller walker at ALL times o2 2lnc at rest, 4Lnc with activity - [facility] [phone] WEAR O2 AT ALL TIMES OR BECOMES [...] joints Home Interventions Provided: Home Intervention: Other; Eval Consulted PCP/Specialist Reinforced current Plan of Care, including self-management and medication regimen Patient's 'Red Flags': 1. Unable to wear o2 for any reason (leads to falls) 2. Wt increase to 315 lbs 3. Increased SOB Patient Needs to Remember: Call [facility] at with any new or worsening health [...] visits & schedule home visit with care steam conditioner operator(s)as indicated. Provider is in agreement with Plan of Care: Yes Scheduled to follow up with patient per ROSA schedule. Vera Capellan RN 04/11/2023 2:42 PM documented in this encounter Plan of Treatment Upcoming Encounters Date Type Specialty Care Team Description 04/14/2023 Office Visit Family Medicine Galdino Andujar DO [address] [place] [address] 04/14/2023 Pharmacy [facility], Pharmacist [address] [place] [address] 04/18/2023 Home Visit [facility] Vera Capellan RN [address] [place] [address] 04/21/2023 Office Visit Orthopedics Zack Teague DO [address] [place] [address] 04/21/2023 Imaging Radiology 05/03/2023 Home Visit [facility] Lucia Garcia CRNP [address] [place] [address] Jeanette Whiteside, Community Health Clinical Lab Assistant [facility] [place] [address] 05/04/2023 Hospital Encounter Surgery Raj Ahn, DO [address] [place] [address] 05/04/2023 Surgery Surgery Raj Ahn Callum, DO [address] [place] [address] INJECTION SACROILIAC JOINT 05/16/2023 Office Visit Family Medicine Galdino Andujar, DO [address] [place] [address] 08/08/2023 Nurse Only Ancillary College, Nurse Annual Wellness Visit [address] [facility] [place] [address] Scheduled Procedures Name Priority Associated Diagnoses Date/Ti [...] Additional history exists CKD PHOS USE SMARTSET 51312 02/12/202401/24, 01/07/2022, 03/12/2021, Additional history exists CKD HGB USE SMARTSET 29951 03/17/202403/17, 03/17/2023, 11/01/2022, Additional history exists Depression [...] Documents on File Type Date Recorded Patient Rod Cup Filler Expl anation POLST 03/19/2020 4:25 PM POLST [...] the patient have Health Care Power of Construction Safety Consultant? No Healthcare Agents on File Name Relationship Healthcare Agent Relationship Communication Galdino Camp Other - (no specific identity) Health Care Power of Construction Safety Consultant Princess Other - (no specific identity) Health Care Power of Construction Safety Consultant Care Teams Cutter Gas Relationship Specialty Start Date End Date Galdino Andujar, DO [address] [place] [address] PCP - General Internal Medicine 01/07/22 documented as of this encounter
--- OUTSIDE RECORDS SUMMARY | 2023-06-01 04:08 | External Medical Summary | Summary of Care ---
Author Name Unknown Organization [facility] Address [address] [place] [address] Phone [phone] Care Team Providers Care Stage Producer Name Role Phone Galdino Andujar DO Primary Care Provider [phone] Reason for Visit * Reason Onset Date Comments Encounter Created in Error 04/08/2023 Encounter Details Date Type Department Care Team Description 04/08/2023 Scheduled Telephone [facility], [facility] [address] [facility] [place] [address] Jennifer Sweet, [address] [facility] [place] [address] Canceled (Clinician Appt Cancel Appt Not Needed) Allergies Active Allergy Reactions Severity Noted Date [...] 0 11/28/2019 Active Blood Glucose Monitoring Suppl (EgeneraUCH ULTRA 2) w/Device KIT Use to test [...] mellitus with hemoglobin A1c goal of 7.0%-8.0% ([facility]) Inject 40-45 units with meals + sliding scale 1 units for every 25 units BG > 150. 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, NYHA class 1 and CKD stage 3 ([facility]),Chronic diastolic congestive heart failure (HCC) TAKE 1 TABLET BY MOUTH IN THE MORNING AND AT BEDTIME 60 Tablet 5 01/12/2023 Active Eliquis 5 MG Oral Tablet (Apixaban) TAKE 1 TABLET BY MOUTH IN THE MORNING AND AT BEDTIME 60 Tablet 5 01/12/2023 Active Levothyroxine Sodium 50 MCG Oral Tablet (Levoxyl)Indications :Hyperparathyroidism , secondary renal ([facility]) TAKE 1 TABLET BY MOUTH ONCE DAILY [...] mellitus with hemoglobin A1c goal of 7.0%-8.0% ([facility]) INJECT 58 UNITS UNDER THE SKIN IN THE EVENING 60 mL 3 03/15/2023 Active Potassium Chloride Ayleen ER 20 MEQ Oral Tablet Extended ReleaseIndications: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, NYHA class 1 and CKD stage 3 ([facility]),Chronic diastolic congestive heart failure ([facility]) TAKE 1 TABLET BY MOUTH IN THE MORNING AND AT BEDTIME 60 Tablet 5 03/16/2023 Active Omeprazole 20 MG Oral Capsule Delayed Release (PriLOSEC)Indication s:Gastroesophageal reflux disease with esophagitis without hemorrhage TAKE 1 CAPSULE BY MOUTH ONCE DAILY IN THE MORNING 30 Capsule 3 03/16/2023 Active Sertraline HCl 50 MG Oral [...] AT BEDTIME 60 Tablet 0 04/10/2023 Active Hospital, Clinic, or Other Facility Administered [...] 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/31/2021 Atherosclerosis of [place] coronary arter 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 12/31/2021 [...] mRNA, LNP-s, No Pre serve, 2-Dose Series ([place]) 01/08/2021,12/18/2020 COVID-19, LNP-s, No Preserve , Navarro-sucrose, Ages 12+ (Pfizer) 2022,10/01/2021 Pneumococcal Conjugate Vacci ne, 20-valent ([id number]) 03/12/2022 Pneumococcal Polysaccharide PPV23 (Pneumovax) 08/22/2009,06/15/2006 Seasonal [...] on file documented as of this encounter Plan of Treatment Upcoming Encounters Date Type Specialty Care Team Description 04/11/2023 Home Visit [facility] Vera Capellan, RN [address] [place] [address] 04/14/2023 Office Visit [facility] Medicine Galdino Andujar, DO [address] [place] [address] 04/14/2023 Pharmacy [facility], Pharmacist [address] [address] 04/21/2023 Office Visit Orthopedics Zack Taegue, DO [address] [place] [address] 05/03/2023 Home Visit [facility] Lucia Garcia CRNP [address] [place] [address] Jeanette Whiteside, [facility] Inclusion Teacher [address] [place] [address] 05/04/2023 Hospital Encounter Surgery Raj Ahn, DO [address] [place] [address] 05/04/2023 Surgery Surgery Raj Ahn, DO [address] [place] [address] INJECTION SACROILIAC JOINT 05/16/2023 Office Visit Family Medicine Galdino Andujar, [address] [place] [address] 08/08/2023 Nurse Only [employer], Nurse Annual Wellness Visit [address] [place] [address] Scheduled Procedures Name Priority Associated Diagnoses Date/Ti [...] Additional history exists CKD PHOS USE SMARTSET 64356 02/12/202401/24, 01/07/2022, 03/12/2021, Additional history exists CKD HGB USE SMARTSET 89855 03/17/202403/17, 03/17/2023, 11/01/2022, Additional history exists Depression [...] Documents on File Type Date Recorded Patient Medical Imaging Technologist Expl anation POLST 03/19/2020 4:25 PM POLST [...] the patient have Health Care Power of Investigator? No Healthcare Agents on File Name Relationship Healthcare Agent Relationship Communication Galdino Camp Other - (no specific identity) Health Care Power of Investigator Princess Allen Other - (no specific identity) Health Care Power of Investigator Care Teams Stage Producer Relationship Specialty Start Date End Date Galdino Andujar, DO [address] [place] [address] PCP - General Internal Medicine 01/07/22 documented as of this encounter
--- OUTSIDE RECORDS SUMMARY | 2023-06-01 04:09 | External Medical Summary | Summary of Care ---
Author Name Unknown Organization [facility] Address [address] [place] [address] Phone [phone] Care Team Providers Care Community Associate Name Role Phone Galdino Andujar DO Primary Care Provider [phone] Reason for Visit * Reason Onset Date Comments [facility]: Maintenance 03/22/2023 Encounter Details Date Type Department Care Team Description 03/22/2023 Telephone [facility], [facility] [address] [facility] [place] [address] [facility], Nurse [facility] [address] [facility] [place] [address] [facility]: Maintenance Allergies Active Allergy [...] as of this encounter (statuses as of 03/22/2023) Medications Medication Sig Dispensed Refills Start Date End Date Status ONETOUCH DELICA LANCETS 33G MISC Check blood sugars 3-4 times daily 180 Each 5 08/01/2018 Active oxygen GASIndications:ELISSA (obstructive sleep apnea) Use 3 L/min(Oxygen) as directed continuous. 0 11/28/2019 Active Blood Glucose Monitoring Suppl ([place] ULTRA 2) w/Device KIT Use to test BG values 1 Kit 0 05/20/2020 Active CPAP every night at bedtime. 0 Active BD Pen Needle Short U/F 31G X 8 MM (Insulin Pen Needle) use five times daily 500 Each 3 11/04/2021 Active From The BenchTouch Ultra Blue In Vitro Strip (Glucose Blood) [...] for Nausea. 90 Tablet 6 08/25/2022 Active Levothyroxine Sodium 200 MCG Oral Tablet (Levoxyl)Indications :Postsurgical hypothyroidism TAKE ONE TABLET BY MOUTH IN THE MORNING AT LEAST 30 MINUTES PRIOR TO BREAKFAST OR OTHER MEDS 100 Tablet 1 08/31/2022 Active NovoLOG FlexPen 100 UNIT/ML Subcutaneous Solution Pen-injector (insulin aspart)Indications:T ype 2 diabetes mellitus with hemoglobin A1c goal of 7.0%-8.0% ([facility]) Inject 40-45 units with meals + sliding scale 1 units for every 25 units BG > 150. 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, NYHA class 1 and CKD stage 3 ([facility]),Chronic diastolic congestive heart failure (HCC) TAKE 1 TABLET BY MOUTH IN THE MORNING AND AT BEDTIME 60 Tablet 5 01/12/2023 Active Eliquis 5 MG Oral Tablet (Apixaban) TAKE 1 TABLET BY MOUTH IN THE MORNING AND AT BEDTIME 60 Tablet 5 01/12/2023 Active Levothyroxine Sodium 50 MCG Oral Tablet (Levoxyl)Indications :Hyperparathyroidism , secondary renal ([facility]) TAKE 1 TABLET BY MOUTH ONCE [...] mellitus with hemoglobin A1c goal of 7.0%-8.0% ([facility]) INJECT 58 UNITS UNDER THE SKIN IN THE EVENING 60 mL 03/15/2023 Active Potassium Chloride Ayleen ER 20 MEQ Oral Tablet Extended ReleaseIndications: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, NYHA class 1 and CKD stage 3 ([facility]),Chronic diastolic congestive heart failure (HCC) TAKE [...] titration plan 30 Tablet 0 03/18/2023 Active Hospital, Clinic, or Other Facility Administered [...] as of this encounter (statuses as of 03/22/2023) Active Problems Problem Noted Date Food insecurity 03/07/2023 Overview: Per [facility] Protocol Type 2 diabetes mellitus wit [...] 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/31/2021 Atherosclerosis of [place] coronary arter 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 12/31/2021 [...] Assessment & Plan: Home PT to start [place] filter in place 08/19/2014 History of pulmonary [...] as of this encounter (statuses as of 03/22/2023) Resolved Problems Problem Noted Date Resolved Date [...] as of this encounter (statuses as of 03/22/2023) Immunizations Name Administration Dates Next Due COVID-19 mRNA, LNP-s, No Pre serve, 2-Dose Series (Pfizer) 01/08/2021,12/18/2020 COVID-19, LNP-s, No Preserve , Navarro-sucrose, Ages 12+ (Pfizer) 2022,10/01/2021 Pneumococcal Conjugate Vacci ne, 20-valent ([id number]) 03/12/2022 Pneumococcal Polysaccharide PPV23 (Pneumovax) 08/22/2009,06/15/2006 Seasonal [...] encounter Miscellaneous Notes * Telephone Encounter - Sadia Mcdonald LPN - 03/22/2023 8:49 AM EDT Images from the original note were not included. Call to [facility], pt has [facility] scale in her home. She received by mail 05/2022 and was self installed Unable to find pt on dashboard. Looked pt up by MR# on [facility] her profile exists she is in outreach status Spoke with Gloria at [facility] she will elevate request for help so pt's [facility] weights will transmit Awaiting return call from [facility] documented in this encounter Plan of Treatment Upcoming Encounters Date Type Specialty Care Team Description 03/22/2023 Scheduled Telephone [facility], [facility] Geoffrey Cisneros [address] [place] [address] 03/23/2023 Scheduled Telephone [facility], [facility] Geoffrey Cisneros [address] [place] [address] 03/23/2023 Home Visit [facility] Brooke Jose RN [address] [place] [address] 03/30/2023 Hospital Encounter Surgery Raj Ahn, [address] [place] [address] 03/30/2023 Surgery Surgery Raj Ahn, [address] [place] [address] INJECTION SACROILIAC JOINT 04/06/2023 Home Visit [facility] Brooke Jose RN [address] [place] [address] 04/07/2023 Office Visit Family Medicine Galdino Andujar, DO [address] [place] [address] 04/21/2023 Office Visit Orthopedics Zack Teague, [address] [place] [address] 04/29/2023 Home Visit [facility] Simi Martinez PA-C [address] [place] [address] 05/16/2023 Office Visit Family Medicine Galdino Andujar, DO [address] [place] [address] 08/08/[address] [facility], Nurse Annual Wellness Visit [address] [facility] [address] [place] [address] Scheduled Procedures Name Priority Associated Diagnoses Date/Ti me INJECTION SACROILIAC JOINT Inflammation of sacroiliac joint (HCC) 03/30/2023 9:00 AM EDT COLONOSCOPY FLEXIBLE PROXIMAL DIAGNOSTIC Recall Colon cancer screening Health Maintenance Due Date Last Done Comments Cologuard 2000 Fecal Occult Blood Test 2000 Sigmoidoscopy 2000 COVID-19 Vaccine (5 - Pfizer series) 06/08/2022 2022, 10/01/2021, 01/08/2021, Additional history exists Mammogram 02/11/2023 02/11/2022, 0 02/2021, 07/10/2019, Additional history exists DIABETES-EYE EXAM 05/24/2023 05/24/2022, , 04/07/2020, Additional history exists HbA1c 09/04/2023 03/05/2023, 01/24, 11/01/2022, Additional history exists GFR 09/16/2023 03/17/2023, 11/24, 11/01/2022, Additional history exists Albumin/Creatinine Ratio 11/01/2023 023, 01/07/2022, 05/24/2019, Additional history exists DIABETES-FOOT EXAM 11/01/2023 11/01/2022, 0 01/07/2022, 01/14/2021, Additional history exists TSH 11/01/2023 11/01/2022, 12/25, 12/25/2020, Additional history exists CKD PHOS USE SMARTSET 65537 02/12/202401/24, 01/07/2022, 03/12/2021, Additional history exists CKD HGB USE SMARTSET 95895 03/17/202403/17, 03/17/2023, 11/01/2022, Additional history exists Depression Screening, Annual for Pts 12 and Over 03/17/2024 03/17/2023, 06/12/2018 Colonoscopy 02/17/2026 02/18/2016, 01/25, 01/28/2006, Additional history exists Colorectal Cancer Screening 02/17/2026 Zoster Vaccines Completed 05/08/2020, 10/27, 12/11/2015 Pneumococcal Vaccine: 65+ Years Completed 03/12/2022, 08/22/2009, 06/15/2006 Influenza Vaccine (FLU shot) Completed , 07/20/2021, 06/13/2020, Additional history exists GARDASIL-HPV IMMUNIZATION SERIES Aged Out No longer [...] Documents on File Type Date Recorded Patient Geodetic Technician Expl anation POLST 03/19/2020 4:25 PM POLST [...] the patient have Health Care Power of Offender Job Retention Specialist? No Healthcare Agents on File Name Relationship Healthcare Agent Relationship Communication Galdino Camp Other - (no specific identity) Health Care Power of Offender Job Retention Specialist Princess Allen Other - (no specific identity) Health Care Power of Offender Job Retention Specialist Care Teams Community Associate Relationship Specialty Start Date End Date Galdino Andujar, DO [address] [place] [address] PCP - General Internal Medicine 01/07/22 documented as of this encounter
--- OUTSIDE RECORDS SUMMARY | 2023-06-01 04:09 | External Medical Summary | Summary of Care ---
Author Name Unknown Organization [facility] Address [address] [place] [address] Phone [phone] Care Team Providers Care Meter Calibrator Name Role Phone Galdino Andujar DO Primary Care Provider Reason for Visit * Reason Onset Date Comments Test Results 03/20/2023 Encounter Details Date Type Department Care Team Description 03/20/2023 Telephone Family Practice [address] [place] [address] [facility] Floor [address] [place] [address] Taz Guthrie DO 3 [facility] [address] [place], [place] [id number] Test Results Allergies Active Allergy Reactions Severity Noted Date [...] as of this encounter (statuses as of 03/24/2023) Medications Medication Sig Dispensed Refills Start Date End Date Status ONETOUCH DELICA LANCETS 33G MISC Check blood sugars 3-4 times daily 180 Each 5 08/01/2018 Active oxygen GASIndications:ELISSA (obstructive sleep apnea) Use 3 L/min(Oxygen) as directed continuous. 0 11/28/2019 Active Blood Glucose Monitoring Suppl (Interface21 ULTRA 2) w/Device KIT Use to test BG values 1 Kit 0 05/20/2020 Active CPAP every night at bedtime. 0 Active BD Pen Needle Short U/F 31G X 8 MM (Insulin Pen Needle) use five times daily 500 Each 3 11/04/2021 Active CartourTouch Ultra Blue In Vitro Strip (Glucose Blood) [...] hemoglobin A1c goal of 7.0%-8.0% ([facility]) Inject 40-45 units with meals [...] (Levoxyl)Indications :Hyperparathyroidism , secondary renal ([facility]) TAKE 1 TABLET BY MOUTH [...] hemoglobin A1c goal of 7.0%-8.0% ([facility]) INJECT 58 UNITS UNDER THE SKIN IN THE EVENING 60 mL 03/15/2023 Active Potassium Chloride Ayleen ER 20 MEQ Oral Tablet Extended ReleaseIndications: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 Do all this for 7 days. 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/31/2021 Atherosclerosis of [place] coronary arter 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 12/31/2021 [...] Assessment & Plan: Home PT to start [place] filter in place 08/19/2014 History of pulmonary [...] as of this encounter (statuses as of 03/24/2023) Resolved Problems Problem Noted Date Resolved Date [...] as of this encounter (statuses as of 03/24/2023) Immunizations Name Administration Dates Next Due COVID-19 mRNA, LNP-s, No Pre serve, 2-Dose Series ([employer]) 01/08/2021,12/18/2020 COVID-19, LNP-s, No Preserve , Navarro-sucrose, Ages 12+ (Pfizer) 2022,10/01/2021 Pneumococcal Conjugate Vacci ne, 20-valent ([id number]) 03/12/2022 Pneumococcal Polysaccharide PPV23 (Pneumovax) 08/22/2009,06/15/2006 Seasonal [...] encounter Miscellaneous Notes * Telephone Encounter - Shira Gross LPN - 03/24/2023 1:39 PM EDT Iliff texted TATIANA Gomez made aware. Thank you * Telephone Encounter - Galdino Andujar DO - 03/24/2023 1:30 PM EDT Need to left hospitalist team at [facility] know that Urine Culture is positive * Telephone Encounter - Taz Guthrie DO - 03/24/2023 1:04 PM EDT Results from weekend call Urine obtained over the weekend for frequency and ? Of UTI Please inform Urine culture results came back positive Calling in cipro for 7 days FYI to G at home and PCP documented in this encounter Plan of Treatment Upcoming Encounters Date Type Specialty Care Team Description 03/30/2023 Hospital Encounter Surgery Raj Ahn DO [address] [place] [address] 03/30/2023 Surgery Surgery Raj Ahn DO [address] [place] [address] INJECTION SACROILIAC JOINT 04/06/2023 [facility] Visit [facility] Brooke Jose, RN [address] [facility] [place] [address] 04/07/2023 Office Visit Family Medicine Galdino Andujar, DO [address] [place] [address] 04/21/2023 Office Visit Orthopedics Zack Teague, DO [address] [facility] [place] [address] 04/29/2023 Home Visit [facility] Simi Martinez PA-C [address] [place] [address] 05/16/2023 Office Visit Family Medicine Galdino Andujar, DO [address] [place] [address] 08/08/2023 Nurse Only [employer], Nurse Annual Wellness Visit [address] [place] [address] Scheduled Procedures Name Priority Associated Diagnoses Date/Ti [...] Additional history exists CKD PHOS USE SMARTSET 05817 02/12/202401/24, 01/07/2022, 03/12/2021, Additional history exists CKD HGB USE SMARTSET 11766 03/17/202403/17, 03/17/2023, 11/01/2022, Additional history exists Depression [...] as of this encounter Visit Diagnoses Diagnosis Urinary frequency- Primary Inflammation of sacroiliac joint (HCC) Sacroiliitis, not elsewhere classified documented in this encounter Advance Directives Documents on File Type Date Recorded Patient Deputy Chief Magistrate Expl anation POLST 03/19/2020 4:25 PM POLST [...] the patient have Health Care Power of Regulatory Affairs Internship? No Healthcare Agents on File Name Relationship Healthcare Agent Relationship Communication Galdino Camp Other - (no specific identity) Health Care Power of Regulatory Affairs Internship Princess Allen Other - (no specific identity) Health Care Power of Regulatory Affairs Internship Care Teams Meter Calibrator Relationship Specialty Start Date End Date Galdino Andujar, DO [address] [place] [address] PCP - General Internal Medicine 01/07/22 documented as of this encounter
--- OUTSIDE RECORDS SUMMARY | 2023-06-01 04:09 | External Medical Summary | Summary of Care ---
Author Name Unknown Organization [facility] Address [address] [place] [address] Phone [phone] Care Team Providers Care Gear Milling Machine Set Up Operator Name Role Phone Galdino Andujar DO Primary Care Provider [phone] Reason for Visit * Reason Onset Date Comments [facility]: Maintenance 03/22/2023 Encounter Details Date Type Department Care Team Description 03/22/2023 Scheduled Telephone [facility], [facility] [address] [place] [address] Coordinator, [facility] [address] [place] [address] Allergies Active Allergy Reactions Severity Noted Date [...] 0 11/28/2019 Active Blood Glucose Monitoring Suppl (Zdorovio ULTRA 2) w/Device KIT Use to test [...] hemoglobin A1c goal of 7.0%-8.0% ([facility]) Inject 40-45 units with meals + sliding [...] Oral Tablet (Levoxyl)Indications :Hyperparathyroidism , secondary renal ([facility]) TAKE 1 TABLET BY MOUTH ONCE DAILY [...] hemoglobin A1c goal of 7.0%-8.0% ([facility]) INJECT 58 UNITS UNDER THE SKIN IN THE EVENING 60 mL 03/15/2023 Active Potassium Chloride Ayleen ER 20 MEQ Oral Tablet Extended ReleaseIndications: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, NYHA class 1 and CKD stage 3 ([facility]),Chronic diastolic congestive heart failure (HCC) TAKE 1 [...] of breath),Small airways disease,ILD (interstitial lung disease) ([facility]) 2.5 mg NEBULIZER PRN 01/07/2023 01/07/2024 Active documented as of this encounter (statuses as of 03/22/2023) Active Problems Problem Noted Date Food insecurity 03/07/2023 Overview: Per [email or web address] Protocol Type 2 diabetes mellitus wit [...] 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 Stable. -continue Eliquis -likely no Wili or beta-faivola due to hypotension. Statin intolerance Carotid artery [...] Assessment & Plan: Home PT to start [place] filter in place 08/19/2014 History of pulmonary [...] (Pfizer) 2022,10/01/2021 Pneumococcal Conjugate Vacci ne, 20-valent ([id number]) 03/12/2022 Pneumococcal Polysaccharide PPV23 (Pneumovax) 08/22/2009,06/15/2006 Seasonal [...] Telephone Encounter - Rosio Galan RN - 03/22/2023 8:19 AM EDT Images from the original note were not included. [facility] Telephonic Nurse Follow-Up Call [facility] Subprogram: [facility] at Home Follow Up Call Type: Routine follow up call / Status Check Acute issue requiring follow-up call: Other: follow up on acute visit Objective: 03/20/2023 2:53 PM 03/18/2023 9:46 AM 03/17/2023 11:11 AM 03/12/2023 10:35 AM 03/01/2023 12:51 PM VITALS ACROSS ENCOUNTERS BP 136/64 118/68 120/68 120/64 122/60 Pulse 90 88 90 85 Weight 141.5 kg 141.9 kg 139.3 kg 142.4 kg BMI 52.05 BMI 51.92 kg/m2 52.05 kg/m2 51.09 kg/m2 52.25 kg/m2 Lab Results Component Value Date BLOOD, URINE - [facility] Negative 03/21/2023 PROTEIN - [facility] 7.2 03/17/2023 PROTEIN, URINE - [facility] Negative 03/21/2023 ESTERASE, URINE - [facility] Small (A) 03/21/2023 WBC AUTO - [facility] 12.35 (H) 03/17/2023 WBC, URINE - [facility] 20-29 (A) 03/21/2023 NITRITE, URINE - [facility] Negative 03/21/2023 Lab Results Component Value Date WBC AUTO - [facility] 12.35 (H) 03/17/2023 HGB - [facility] 13.2 03/17/2023 PLATELET AUTO - [facility] 286 03/17/2023 Lab Results Component Value Date SODIUM - [facility] 141 03/17/2023 POTASSIUM - [facility] 4.0 03/17/2023 CO2 - [facility] 31 03/17/2023 CREATININE - [facility] 1.6 (H) 03/17/2023 ESTIMATED GLOMERULAR FILTRATION RATE - [facility] 35 (L) 03/17/2023 ALBUMIN - [facility] 4.2 03/17/2023 AST - [facility] 17 03/17/2023 ALT - [facility] 17 03/17/2023 ALKALINE PHOSPHATASE - [facility] 93 03/17/2023 No results found for: PRO BNP, LEFT VENTRICULAR EJECTION FRACTION Remote Patient Monitoring: [facility] Scale: No Oxygen Needs: NO CHANGE from baseline supplemental oxygen needs DME Needs: NO DME needs identified Medications: No medication or dose adjustments made during acute episode Subjective: Condition Status: Worsening of symptoms Current Concerns: Spoke with patient, notes her back pain is unchanged, notes she hs had it for a week, underneath her left shoulder blade, 04/04. Abdomen discomfort, lower abdomen pressure persists, denies any hematuria, -dysuria, +urgency/frequency, -SOB Weight today was 313lbs, was 310 lbs. DTP reviewed with patient, instructed to take Metolazone 2.5mg in addition to an extra potassium Instructed to use ice pack and or heat to area on left shoulder blade Disposition: Follow up call scheduled for tomorrow with [facility] [employer] Roller Grinder Future Visits Scheduled: Future Appointments-next 60 days Date/Time Provider Specialty Dept Phone 03/22/2023 9:30 AM Virginia Hale Rubber Roller Grinder [facility] [phone] 03/23/2023 11:30 AM [facility] [phone] 04/06/2023 4:00 PM [facility] [phone] 04/07/2023 11:20 AM (Arrive by 11:05 AM) Galdino Andujar DO Family Medicine [phone] 04/21/2023 1:15 PM (Arrive by 1:00 PM) Zack Teague DO Orthopedics [phone] 04/29/2023 4:00 PM Simi Martinez PA-C [facility] [phone] 05/16/2023 1:00 PM (Arrive by 12:45 PM) Galdino Andujar DO Family Medicine [phone] 08/08/2023 2:00 PM Nurse Annual Wellness Visit [address] [place] [address] Ancillary [phone] Rosio Galan RN documented in this encounter Plan of Treatment Upcoming Encounters Date Type Specialty Care Team Description 03/23/2023 Scheduled Telephone [facility] Labourer, [facility] Geoffrey Cisneros [address] [place] [address] 03/23/2023 Home Visit [facility] Brooke Jose RN [address] [place] [address] 03/30/2023 Hospital Encounter Surgery Raj Ahn, [address] [place] [address] 03/30/2023 Surgery Surgery Raj Ahn, DO [address] [place] [address] INJECTION SACROILIAC JOINT 04/06/2023 Home Visit [facility] Brooke Jose RN [address] [place] [address] 04/07/2023 Office Visit Family Medicine Galdino Andujar, DO [address] [facility] [address] 04/21/2023 Office Visit Orthopedics Zack Teague, DO [address] [place] [address] 04/29/2023 Home Visit [facility] Simi Martinez PA-C [address] [place] [address] 05/16/2023 Office Visit Family Medicine Galdino Andujar, [address] [facility] [place] [address] 08/08/2023 Nurse Only Ancillary College, Nurse Annual Wellness Visit [address] [facility], [place] [address] Scheduled Procedures Name Priority Associated Diagnoses Date/Ti [...] Additional history exists CKD PHOS USE SMARTSET 78366 02/12/202401/24, 01/07/2022, 03/12/2021, Additional history exists CKD HGB USE SMARTSET 70192 03/17/202403/17, 03/17/2023, 11/01/2022, Additional history exists Depression [...] Documents on File Type Date Recorded Patient Recreation Program Specialist Expl anation POLST 03/19/2020 4:25 PM [...] the patient have Health Care Power of Flight Mechanic? No Healthcare Agents on File Name Relationship Healthcare Agent Relationship Communication Galdino Camp Other - (no specific identity) Health Care Power of Flight Mechanic Princess Allen Other - (no specific identity) Health Care Power of Flight Mechanic Care Teams Gear Milling Machine Set Up Operator Relationship Specialty Start Date End Date Galdino Andujar, [address] [place] [address] PCP - General Internal Medicine 01/07/22 documented as of this encounter
--- OUTSIDE RECORDS SUMMARY | 2023-06-01 04:09 | External Medical Summary | Summary of Care ---
Author Name Unknown Organization [facility] Address [address] [place] [address] Phone [phone] Care Team Providers Care Stacker Name Role Phone Galdino Andujar DO Primary Care Provider [phone] Reason for Visit * Reason Onset Date Comments [facility]: Maintenance 03/22/2023 Encounter Details Date Type Department Care Team Description 03/22/2023 Telephone [facility], [facility] [address] [facility] [place] [address] [facility], Nurse [facility] [address] [facility] [place] [address] [facility]: Maintenance Allergies Active Allergy [...] 0 11/28/2019 Active Blood Glucose Monitoring Suppl ([employer] ULTRA 2) w/Device KIT Use to test BG values 1 Kit 0 05/20/2020 Active CPAP every night at bedtime. 0 Active BD Pen Needle Short U/F 31G X 8 MM (Insulin Pen Needle) use five times daily 500 Each 3 11/04/2021 Active CheapFlightsFinderTouch Ultra Blue In Vitro Strip (Glucose Blood) [...] mellitus with hemoglobin A1c goal of 7.0%-8.0% ([facility]) Inject 40-45 units with meals + sliding scale 1 units for every 25 units BG > 150. 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, NYHA class 1 and CKD stage 3 ([facility]),Chronic diastolic congestive heart failure (HCC) TAKE 1 TABLET BY MOUTH IN THE MORNING AND AT BEDTIME 60 Tablet 5 01/12/2023 Active Eliquis 5 MG Oral Tablet (Apixaban) TAKE 1 TABLET BY MOUTH IN THE MORNING AND AT BEDTIME 60 Tablet 5 01/12/2023 Active Levothyroxine Sodium 50 MCG Oral Tablet (Levoxyl)Indications :Hyperparathyroidism , secondary renal ([facility]) TAKE 1 TABLET BY MOUTH ONCE [...] mellitus with hemoglobin A1c goal of 7.0%-8.0% ([facility]) INJECT 58 UNITS UNDER THE SKIN IN THE EVENING 60 mL 03/15/2023 Active Potassium Chloride Ayleen ER 20 MEQ Oral Tablet Extended ReleaseIndications: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, NYHA class 1 and CKD stage 3 ([facility]),Chronic diastolic congestive heart failure (HCC) TAKE [...] Noted Date Food insecurity 03/07/2023 Overview: Per [facility] Protocol Type 2 diabetes mellitus wit [...] 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 They are unable to see pt's scale or activate it. Was told will send new scale to pt and [facility] will f/u with pt to make sure it is activated correctly. Call to pt made aware of above. Requested she notify [facility] when new [facility] scale arrives to ensure activation happens. Will forward to care team to make aware * Telephone Encounter - Sadia Mcdonald LPN - 03/22/2023 8:49 AM EDT Images from the original note were not included. Call to [facility], pt has [facility] scale in her home. She received by mail 05/2022 and was self installed Unable to find pt on dashboard. Looked pt up by MR# on [facility] her profile exists she is in outreach status Spoke with Gloria at [facility] she will elevate request for help so pt's [facility] weights will transmit Awaiting return call from [facility] documented in this encounter Plan of Treatment Upcoming Encounters Date Type Specialty Care Team Description 03/23/2023 Scheduled Telephone [facility] Screen Printing Loader Unloader, [place] Cisneros [address] [place] [address] 03/23/2023 Home Visit [facility] Brooke Jose RN [address] [place] [address] 03/30/2023 Hospital Encounter Surgery DavontealejandrathaddeusRaj Callum, DO [address] [place] [address] 03/30/2023 Surgery Surgery Raj Ahn, DO [address] [place] [address] INJECTION SACROILIAC JOINT 04/06/2023 Home Visit [facility] Brooke Jose RN [address] [place] [address] 04/07/2023 Office Visit Family Medicine Galdino Andujar, DO [address] [facility] [place] [address] 04/21/2023 Office Visit Orthopedics Zack Teague, DO [address] [place] [address] 04/29/2023 Home Visit [facility] Simi Martinez PA-C [address] [place] [address] 05/16/2023 Office Visit Family Medicine Galdino Andujar, DO [address] [facility] [place] [address] 08/08/2023 Nurse Only Ancillary [place], Nurse Annual Wellness Visit [address] [place] [address] Scheduled Procedures Name Priority Associated Diagnoses Date/Ti [...] 02/11/2022, 01/0 02/2021, 07/10/2019, Additional history exists DIABETES-EYE EXAM 05/24/2023 05/24/2022, , 04/07/2020, Additional history exists HbA1c 09/04/2023 03/05/2023, 01/24, 11/01/2022, Additional history exists GFR 09/16/2023 03/17/2023, 11/24, 11/01/2022, Additional history exists Albumin/Creatinine Ratio 11/01/2023 023, 01/07/2022, 05/24/2019, Additional history exists DIABETES-FOOT EXAM 11/01/2023 11/01/2022, 0 01/07/2022, 01/14/2021, Additional history exists TSH 11/01/2023 11/01/2022, 12/25, 12/25/2020, Additional history exists CKD PHOS USE SMARTSET 75192 02/12/202401/24, 01/07/2022, 03/12/2021, Additional history exists CKD HGB USE SMARTSET 43124 03/17/202403/17, 03/17/2023, 11/01/2022, Additional history exists Depression [...] Documents on File Type Date Recorded Patient Physics Instructor Expl anation POLST 03/19/2020 4:25 PM POLST [...] the patient have Health Care Power of Counter Caser? No Healthcare Agents on File Name Relationship Healthcare Agent Relationship Communication Galdino Camp Other - (no specific identity) Health Care Power of Counter Caser Princess Allen Other - (no specific identity) Health Care Power of Counter Caser Care Teams Stacker Relationship Specialty Start Date End Date Galdino Andujar, DO [address] [facility] [place] [address] PCP - General Internal Medicine 01/07/22 documented as of this encounter
--- OUTSIDE RECORDS SUMMARY | 2023-06-01 04:09 | External Medical Summary | Summary of Care ---
Author Name Unknown Organization [facility] Address [address] [place] [address] Phone [phone] Care Team Providers Care Baker Paint Name Role Phone Galdino Andujar DO Primary Care Provider [phone] Reason for Visit * Reason Onset Date Comments [facility]: Maintenance 03/23/2023 Encounter Details Date Type Department Care Team Description 03/23/2023 Scheduled Telephone [facility], [facility] [address] [place] [address] Coordinator, [facility] [address] [place] [address] Allergies Active Allergy Reactions Severity Noted Date [...] as of this encounter (statuses as of 03/23/2023) Medications Medication Sig Dispensed Refills Start Date End Date Status ONETOUCH DELICA LANCETS 33G MISC Check blood sugars 3-4 times daily 180 Each 5 08/01/2018 Active oxygen GASIndications:ELISSA (obstructive sleep apnea) Use 3 L/min(Oxygen) as directed continuous. 0 11/28/2019 Active Blood Glucose Monitoring Suppl ([employer] ULTRA 2) w/Device KIT Use to test [...] Tablet (Levoxyl)Indications :Hyperparathyroidism , secondary renal ([facility]) TAKE 1 TABLET BY MOUTH ONCE [...] of breath),Small airways disease,ILD (interstitial lung disease) ([facility]) 2.5 mg NEBULIZER PRN 01/07/2023 01/07/2024 Active documented as of this encounter (statuses as of 03/23/2023) Active Problems Problem Noted Date Food insecurity 03/07/2023 Overview: Per [facility] Protocol Type 2 diabetes mellitus wit [...] 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/31/2021 Atherosclerosis of [place] coronary arter 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 12/31/2021 [...] Assessment & Plan: Home PT to start [place] filter in place 08/19/2014 History of pulmonary [...] as of this encounter (statuses as of 03/23/2023) Resolved Problems Problem Noted Date Resolved Date [...] as of this encounter (statuses as of 03/23/2023) Immunizations Name Administration Dates Next Due COVID-19 mRNA, LNP-s, No Pre serve, 2-Dose Series (Pfizer) 01/08/2021,12/18/2020 COVID-19, LNP-s, No Preserve , Navarro-sucrose, Ages 12+ (Pfizer) 2022,10/01/2021 Pneumococcal Conjugate Vacci ne, 20-valent ([id number]) 03/12/2022 Pneumococcal Polysaccharide PPV23 (Pneumovax) 08/22/2009,06/15/2006 Seasonal [...] encounter Miscellaneous Notes * Telephone Encounter - Demetra Berumen RN - 03/23/2023 10:52 AM EDT No call needed. Patient has home visit with Brooke Jose RN this morning. Demetra Berumen. RN [facility] type caster [phone] documented in this encounter Plan of Treatment Upcoming Encounters Date Type Specialty Care Team Description 03/23/2023 [facility] Visit [facility] Brooke Jose RN [address] [place], [place] [address] 03/30/2023 Hospital Encounter Surgery Raj Ahn, DO [address] [place] [address] 03/30/2023 Surgery Surgery Raj Ahn, DO [address] [place], [place] [address] INJECTION SACROILIAC JOINT 04/06/2023 Home Visit [facility] Brooke Jose RN [address] [place] [address] 04/07/2023 Office Visit Family Medicine Galdino Andujar, DO [address] [facility] [place] [address] 04/21/2023 Office Visit Orthopedics Zack Teague, DO [address] [place] [address] 04/29/2023 Home Visit [facility] Simi Martinez PA-C [address] [place] [address] 05/16/2023 Office Visit Family Medicine Galdino Andujar, DO [address] [facility] [place] [place] [address] 08/08/2023 Nurse Only Ancillary College, Nurse Annual Wellness Visit [address] [facility] [address] [place] [address] Scheduled Procedures Name Priority Associated Diagnoses Date/Ti [...] Additional history exists CKD PHOS USE SMARTSET 77964 02/12/202401/24, 01/07/2022, 03/12/2021, Additional history exists CKD HGB USE SMARTSET 43897 03/17/202403/17, 03/17/2023, 11/01/2022, Additional history exists Depression [...] Documents on File Type Date Recorded Patient Flattening Machine Operator Expl anation POLST 03/19/2020 4:25 [...] the patient have Health Care Power of Missionary Coordinator? No Healthcare Agents on File Name Relationship Healthcare Agent Relationship Communication Galdino Camp Other - (no specific identity) Health Care Power of Missionary Coordinator Princess Allen Other - (no specific identity) Health Care Power of Missionary Coordinator Care Teams Baker Paint Relationship Specialty Start Date End Date Galdino Andujar, DO [address] [place] [address] PCP - General Internal Medicine 01/07/22 documented as of this encounter
--- OUTSIDE RECORDS SUMMARY | 2023-06-01 04:09 | External Medical Summary | Summary of Care ---
Author Name Unknown Organization [facility] Address [address] [place] [address] Phone [phone] Care Team Providers Care Physician Scientist Name Role Phone Galdino Andujar DO Primary Care Provider [phone] Reason for Visit * Reason Onset Date Comments Medication Question 02/23/2023 Virgilio Encounter Details Date Type Department Care Team Description 02/23/2023 Telephone Family Practice [facility], Nursery [address] [place] [address] Galdino Andujar DO [address] [place] [address] Medication Question (Virgilio) Allergies Active Allergy Reactions Severity Noted Date [...] as of this encounter (statuses as of 03/26/2023) Medications Medication Sig Dispensed Refills Start Date End Date Status ONETOUCH DELICA LANCETS 33G MISC Check blood sugars 3-4 times daily 180 Each 5 8 Active oxygen GASIndications:ELISSA (obstructive sleep apnea) Use 3 L/min(Oxygen) as directed continuous. 0 0 Active Blood Glucose Monitoring Suppl (DineroMailTOUCH ULTRA 2) w/Device KIT Use to test [...] for Nausea. 90 Tablet 6 2 Active Levothyroxine Sodium 200 MCG Oral Tablet (Levoxyl)Indicatio ns:Postsurgical hypothyroidism TAKE ONE TABLET BY MOUTH IN THE MORNING AT LEAST 30 MINUTES PRIOR TO BREAKFAST OR OTHER MEDS 100 Tablet 1 2 Active NovoLOG FlexPen 100 UNIT/ML Subcutaneous Solution Pen-injector (insulin aspart)Indications :Type 2 diabetes mellitus with hemoglobin A1c goal of 7.0%-8.0% ([facility]) Inject 40-45 units with meals + sliding scale 1 units for every 25 units BG > 150. 121 mL 3 3 Active Magnesium Oxide 400 MG Oral TabletIndications: [...] Mild or Pain, Moderate. 0 3 Active DIURETIC TITRATION PLANIndications:Ch ronic diastolic congestive heart failure (HCC) If no improvement on day 3, contact heart failure managing provider. 1 Each 0 0 023 Discontinued(Wy dication List Clean Up) Acetaminophen 500 MG Oral Tablet Take 1 Tablet by mouth every 6 hours as needed. 0 023 Discontinued(Me dication/Dose Changed) Tresiba FlexTouch 100 UNIT/ML Subcutaneous Solution Pen-injector (Insulin Degludec)Indicatio ns:Type 2 diabetes mellitus with hemoglobin A1c goal of 7.0%-8.0% ([facility]) INJECT 60 UNITS UNDER THE SKIN EVERY MORNING 60 mL 3 2 023 Discontinued DULoxetine HCl 60 MG Oral Capsule Delayed Release Particles (Cymbalta)Indicati ons:Fibromyalgia,M oderate episode of recurrent major depressive disorder (HCC),Primary osteoarthritis of both knees Take 1 Capsule (60 mg) by mouth in the morning. Take 1 capsule daily. 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 60 Tablet 5 2 023 Discontinued Omeprazole 20 MG Oral Capsule Delayed Release (PriLOSEC)Indicati ons:Gastroesophage al reflux disease with esophagitis without hemorrhage TAKE 1 CAPSULE BY MOUTH ONCE DAILY IN THE MORNING 30 Capsule 3 3 023 Discontinued Baclofen 5 MG Oral Tablet (Lioresal)Indicati ons:Fibromyalgia TAKE 1 TABLET BY MOUTH TWICE DAILY NEEDED FOR MUSCLE SPASMS 60 Tablet 1 3 023 Discontinued clonazePAM 0.5 MG Oral Tablet (KlonoPIN)Indicati ons:Restless legs syndrome,Anxiety state TAKE 1 TABLET BY MOUTH IN THE MORNING AND AT BEDTIME 60 Tablet 0 3 023 Discontinued Gabapentin 100 MG Oral Capsule (Neurontin)Indicat ions:Fibromyalgia Take 1 Capsule by mouth in the morning and 1 Capsule at noon and 1 Capsule before bedtime. 270 Capsule 3 3 023 Discontinued Farxiga 5 MG Oral Tablet (Dapagliflozin Propanediol) Take 1 Tablet by mouth in the morning. 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/31/2021 Atherosclerosis of [place] coronary arter 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 [...] as of this encounter (statuses as of 03/26/2023) Resolved Problems Problem Noted Date Resolved Date [...] as of this encounter (statuses as of 03/26/2023) Immunizations Name Administration Dates Next Due COVID-19 mRNA, LNP-s, No Pre serve, 2-Dose Series (Pfizer) 01/08/2021,12/18/2020 COVID-19, LNP-s, No Preserve , Navarro-sucrose, Ages 12+ (Pfizer) 2022,10/01/2021 Pneumococcal Conjugate Vacci ne, 20-valent ([id number]) 03/12/2022 Pneumococcal Polysaccharide PPV23 (Pneumovax) 08/22/2009,06/15/2006 Seasonal [...] Former Cigarettes 1 15 Q uit: 08/26/1997 Smokeless Tobacco: Never Alcohol Use Standard Drinks/Week [...] Notes * Telephone Encounter - Frances Duong RPh - 02/23/2023 4:58 PM EDT Diabetes telephone follow - up 02/23/2023 Patient Phone Numbers - Reason for contacting patient: Patient reporting low blood sugars since starting Farxiga. Still doesn't have dexcom - they are sending her sensors. Discussed potentially lowering patient's insulin,however, patient then reports blurry vision constantly since starting the medication 6 days ago. - Current diabetic medications: DECREASE:Novolog- 42 units withbreakfast, 40unitslunch and 45 units with supper+ SS 1:25 >150 before meals [id number] Trulicity 4.5 mg weekly-Tuesdaymo Metformin ER 500 mg 1 tablet daily START Farxiga 5mg daily aTSN12oM/min12/08/22 Therapy Management Assessment/Plan: 1) Diabetes: Advised patient to hold Farxiga for now. We had planned for home phleb to get BMP thisweek, however not needed at the moment due to stopping the Farxiga. MTM to follow up in 5 days. Forwarding to PCP as well. Frances Huerta RP, Pharm D Clinical Pharmacist [facility] 02/23/2023, 4:58 PM * Telephone Encounter - ELISSA Snider - 02/23/2023 3:46 PM EDT Called wanting to speak to Frances in regards to her Farziga that she just started a week ago documented in this encounter Plan of Treatment Upcoming Encounters Date Type Specialty Care Team Description 03/30/2023 Hospital Encounter Surgery Raj Ahn, DO [address] [place] [address] 03/30/2023 Surgery Surgery Raj Ahn, DO [address] [place] [address] INJECTION SACROILIAC JOINT 04/06/2023 Home Visit [facility] Brooke Jose RN [address] [place] [address] 04/07/2023 Office Visit Family Medicine Galdino Andujar, DO [address] [place] [address] 04/07/2023 Office Visit [facility] [address] [place] [address] 04/21/2023 Office Visit Orthopedics Zack Teague, DO [address] [place] [address] 04/29/2023 Home Visit [facility] Simi Martinez PA-C [address] [place] [address] 05/16/2023 Office Visit Family Medicine Galdino Andujar DO [address] [place] [address] 08/08/2023 Nurse Only [employer]illary College, Nurse Annual Wellness Visit [address] [facility], [place] [address] Scheduled Procedures Name Priority Associated Diagnoses Date/Ti [...] Additional history exists CKD PHOS USE SMARTSET 43540 02/12/202401/24, 01/07/2022, 03/12/2021, Additional history exists CKD HGB USE SMARTSET 75288 03/17/202403/17, 03/17/2023, 11/01/2022, Additional history exists Depression [...] Documents on File Type Date Recorded Patient Fieldwork Coordinator Expl anation POLST 03/19/2020 4:25 PM POLST [...] the patient have Health Care Power of Dishing Machine Operator? No Healthcare Agents on File Name Relationship Healthcare Agent Relationship Communication Galdino Camp Other - (no specific identity) Health Care Power of Dishing Machine Operator Princess Allen Other - (no specific identity) Health Care Power of Dishing Machine Operator Care Teams Physician Scientist Relationship Specialty Start Date End Date Galdino Andujar, [address] [place] [address] PCP - General Internal Medicine 01/07/22 documented as of this encounter
--- OUTSIDE RECORDS SUMMARY | 2023-06-01 04:09 | External Medical Summary | Summary of Care ---
Author Name Unknown Organization [facility] Address [address] [place] [address] Phone [phone] Care Team Providers Care High School Director Name Role Phone Galdino Andujar DO Primary Care Provider [phone] Reason for Visit * Reason Onset Date Comments [facility]: Maintenance 03/21/2023 Encounter Details Date Type Department Care Team Description 03/21/2023 Scheduled Telephone [facility], [facility] [address] [place] [address] Coordinator, [facility] [address] [place] [address] Allergies Active Allergy Reactions Severity Noted Date [...] as of this encounter (statuses as of 03/21/2023) Medications Medication Sig Dispensed Refills Start Date End Date Status ONETOUCH DELICA LANCETS 33G MISC Check blood sugars 3-4 times daily 180 Each 5 08/01/2018 Active oxygen GASIndications:ELISSA (obstructive sleep apnea) Use 3 L/min(Oxygen) as directed continuous. 0 11/28/2019 Active Blood Glucose Monitoring Suppl (Adsvark ULTRA 2) w/Device KIT Use to test [...] hemoglobin A1c goal of 7.0%-8.0% ([facility]) Inject 40-45 units with meals + [...] Oral Tablet (Levoxyl)Indications :Hyperparathyroidism , secondary renal ([facility]) TAKE 1 TABLET BY MOUTH ONCE [...] hemoglobin A1c goal of 7.0%-8.0% ([facility]) INJECT 58 UNITS UNDER THE SKIN IN THE EVENING 60 mL 03/15/2023 Active Potassium Chloride Ayleen ER 20 MEQ Oral Tablet Extended ReleaseIndications: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, NYHA class 1 and CKD stage 3 ([facility]),Chronic diastolic congestive heart failure (HCC) TAKE [...] of breath),Small airways disease,ILD (interstitial lung disease) ([facility]) 2.5 mg NEBULIZER PRN 01/07/2023 01/07/2024 Active documented as of this encounter (statuses as of 03/21/2023) Active Problems Problem Noted Date Food insecurity 03/07/2023 Overview: Per [facility] Protocol Type 2 diabetes mellitus wit [...] 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/31/2021 Atherosclerosis of [place] coronary arter 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 12/31/2021 [...] Assessment & Plan: Home PT to start [place] filter in place 08/19/2014 History of pulmonary [...] as of this encounter (statuses as of 03/21/2023) Resolved Problems Problem Noted Date Resolved Date [...] as of this encounter (statuses as of 03/21/2023) Immunizations Name Administration Dates Next Due COVID-19 mRNA, LNP-s, No Pre serve, 2-Dose Series (Pfizer) 01/08/2021,12/18/2020 COVID-19, LNP-s, No Preserve , Navarro-sucrose, Ages 12+ (Pfizer) 2022,10/01/2021 Pneumococcal Conjugate Vacci ne, 20-valent ([id number]) 03/12/2022 Pneumococcal Polysaccharide PPV23 (Pneumovax) 08/22/2009,06/15/2006 Seasonal [...] encounter Miscellaneous Notes * Telephone Encounter - Maris Mariscal RN - 03/21/2023 4:28 PM EDT Images from the original note were not included. Call received from the pt asking for results of her Urine specimen. Specimen reflexed to culture. Culture results pending. Chart reviewed. Will forward results to care team to review for recommendations * Telephone Encounter - Frances Marcial RN - 03/21/2023 11:03 AM EDT Images from the original note were not included. [facility] Telephonic Nurse Follow-Up Call [facility] Subprogram: Primary Care at Home Follow Up Call Type: 24 hour follow up Acute issue requiring follow-up call: Other: lower back pain, abdominal pressure and urinary freqency Objective: 03/20/2023 2:53 PM 03/18/2023 9:46 AM 03/17/2023 11:11 AM 03/12/2023 10:35 AM 03/01/2023 12:51 PM VITALS ACROSS ENCOUNTERS BP 136/64 118/68 120/68 120/64 122/60 Pulse 90 88 90 85 Weight 141.5 kg 141.9 kg 139.3 kg 142.4 kg BMI 52.05 BMI 51.92 kg/m2 52.05 kg/m2 51.09 kg/m2 52.25 kg/m2 Lab Results Component Value Date PROTEIN - [facility] 7.2 03/17/2023 WBC AUTO - [facility] 12.35 (H) 03/17/2023 Lab Results Component Value Date WBC AUTO [...] LEFT VENTRICULAR EJECTION FRACTION Remote Patient Monitoring: NONE Oxygen Needs: NO CHANGE from baseline supplemental oxygen needs DME Needs: NO DME needs identified Medications: No medication or dose adjustments made during acute episode Subjective: Condition Status: Improvement in symptoms but not at baseline Current Concerns: Called and spoke with patient, she stated she feels a little better today but still has abdominal pressure, lower back pain and urinary frequency. Denies fever or chills. Urinalysis in process , no results yet. Disposition: Follow up call scheduled for tomorrow with HEALTHCARE TRANSLATOR Leach Cell Operator Future Visits Scheduled: Future Appointments-next 60 days Date/Time Provider Specialty Dept Phone 03/22/2023 9:30 AM Virginia Hale Leach Cell Operator [facility] [phone] 03/23/2023 11:30 AM [facility] [phone] 04/06/2023 4:00 PM [facility] [phone] 04/07/2023 11:20 AM (Arrive by 11:05 AM) Galdino Andujar DO Family Medicine [phone] 04/21/2023 1:15 PM (Arrive by 1:00 PM) Zack Teague DO Orthopedics [phone] 04/29/2023 4:00 PM Simi Martinez PA-C [facility] [phone] 05/16/2023 1:00 PM (Arrive by 12:45 PM) Galdino Andujar DO Family Medicine [phone] 08/08/2023 2:00 PM Nurse Annual Wellness Visit [address] [place] [address] Ancillary [phone] Frances Marcial media marketing directorAdministrative Assistant [facility] documented in this encounter Plan of Treatment Upcoming Encounters Date Type Specialty Care Team Description 03/22/2023 Scheduled Telephone [facility] Tax Administrator, [facility] [address] [place] [address] 03/23/2023 Home Visit [facility] Brooke Jose RN [address] [place] [address] 03/30/2023 Hospital Encounter Surgery Raj Ahn, DO [address] [place] [address] 03/30/2023 Surgery Surgery Raj Ahn, DO [address] [place] [address] INJECTION SACROILIAC JOINT 04/06/2023 Home Visit [facility] Brooke Jose RN [address] [place] [address] 04/07/2023 Office Visit Family Medicine Galdino Andujar, DO [address] [facility] [place] [address] 04/21/2023 Office Visit Orthopedics Zack Teague, DO [address] [place] [address] 04/29/2023 Home Visit [facility] Simi Martinez PA-C [address] [place] [address] 05/16/2023 Office Visit Family Medicine Galdino Andujar, DO [address] [place] [address] 08/08/2023 Nurse Only Ancillary College, Nurse Annual Wellness Visit [address] [facility], [place] [address] Scheduled Procedures Name Priority Associated Diagnoses Date/Ti [...] Additional history exists CKD PHOS USE SMARTSET 69066 02/12/202401/24, 01/07/2022, 03/12/2021, Additional history exists CKD HGB USE SMARTSET 01701 03/17/202403/17, 03/17/2023, 11/01/2022, Additional history exists Depression [...] Documents on File Type Date Recorded Patient Counter Molder Expl anation POLST 03/19/2020 4:25 PM POLST [...] the patient have Health Care Power of Mechanical Laboratory Technician? No Healthcare Agents on File Name Relationship Healthcare Agent Relationship Communication Galdino Camp Other - (no specific identity) Health Care Power of Mechanical Laboratory Technician Princess Allen Other - (no specific identity) Health Care Power of Mechanical Laboratory Technician Care Teams High School Director Relationship Specialty Start Date End Date Galdino Andujar, [address] [place] [facility] [place] [address] PCP - General Internal Medicine 01/07/22 documented as of this encounter
--- OUTSIDE RECORDS SUMMARY | 2023-06-01 04:09 | External Medical Summary | Summary of Care ---
Author Name Unknown Organization [facility] Address [address] [place] [address] Phone [phone] Care Team Providers Care Rubber Roller Grinder Operator Name Role Phone Galdino Andujar DO Primary Care Provider [phone] Reason for Visit * Reason Onset Date Comments [facility]: Maintenance 03/21/2023 Encounter Details Date Type Department Care Team Description 03/21/2023 Scheduled Telephone [facility], [facility] [address] [place] [address] Coordinator, [facility] [address] [place] [address] Allergies Active Allergy Reactions Severity Noted Date [...] 0 11/28/2019 Active Blood Glucose Monitoring Suppl (Relevvant ULTRA 2) w/Device KIT Use to test [...] mellitus with hemoglobin A1c goal of 7.0%-8.0% ([facility]) Inject 40-45 units with [...] Oral Tablet (Levoxyl)Indications :Hyperparathyroidism , secondary renal ([facility]) TAKE 1 TABLET BY [...] mellitus with hemoglobin A1c goal of 7.0%-8.0% ([facility]) INJECT 58 UNITS UNDER THE SKIN IN THE EVENING 60 mL 03/15/2023 Active Potassium Chloride Ayleen ER 20 MEQ Oral Tablet Extended ReleaseIndications: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, NYHA class 1 and CKD stage 3 ([facility]),Chronic diastolic congestive heart failure [...] of breath),Small airways disease,ILD (interstitial lung disease) ([facility]) 2.5 mg NEBULIZER PRN 01/07/2023 01/07/2024 Active documented as of this encounter (statuses as of 03/21/2023) Active Problems Problem Noted Date Food insecurity 03/07/2023 Overview: Per [facility] Protocol Type 2 diabetes mellitus wit [...] 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/31/2021 Atherosclerosis of [place] coronary arter 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 [...] Assessment & Plan: Home PT to start [place] filter in place 08/19/2014 History of pulmonary [...] (Pfizer) 2022,10/01/2021 Pneumococcal Conjugate Vacci ne, 20-valent ([id number]) 03/12/2022 Pneumococcal Polysaccharide PPV23 (Pneumovax) 08/22/2009,06/15/2006 Seasonal [...] [facility] Telephonic Nurse Follow-Up Call [facility] Subprogram: Primary Care at Home Follow [...] Follow up call scheduled for tomorrow with VIRTUAL ASSISTANT Keg Filler Future Visits Scheduled: Future Appointments-next 60 days Date/Time Provider Specialty Dept Phone 03/22/2023 9:30 AM Virginia Hale Keg Filler [facility] [phone] 03/23/2023 11:30 AM [facility] [phone] 04/06/2023 4:00 PM [facility] [phone] 04/07/2023 11:20 AM (Arrive by 11:05 AM) Galdino Andujar DO Family Medicine [phone] 04/21/2023 1:15 PM (Arrive by 1:00 PM) Zack Teague DO Orthopedics [phone] 04/29/2023 4:00 PM Simi Martinez PA-C [facility] [phone] 05/16/2023 1:00 PM (Arrive by 12:45 PM) Galdino Andujar DO Family Medicine [phone] 08/08/2023 2:00 PM Nurse Annual Wellness Visit [address] [place] [address] Ancillary [phone] Frances Marcial manager payrollEdge [facility] documented in this encounter Plan of Treatment Upcoming Encounters Date Type Specialty Care Team Description 03/22/2023 Scheduled Telephone [facility] Collections And Archives Director, [facility] [address] [place] [address] 03/23/2023 Home Visit [facility] Brooke Jose RN [address] [place] [address] 03/30/2023 Hospital Encounter Surgery Raj Ahn, DO [address] [place] [address] 03/30/2023 Surgery Surgery Raj Ahn, DO [address] [place] [address] INJECTION SACROILIAC JOINT 04/06/2023 Home Visit [facility] Brooke Jose RN [address] [place] [address] 04/07/2023 Office Visit Family Medicine Galdino Andujar, DO [address] [place] [address] 04/21/2023 Office Visit Orthopedics Zack Teague, DO [address] [place] [address] 04/29/2023 Home Visit [facility] Simi Martinez PA-C [address] [place] [address] 05/16/2023 Office Visit Family Medicine Galdino Andujar, DO [address] [place] [address] 08/08/2023 Nurse Only Ancillary College, Nurse Annual Wellness Visit [address] [facility], [place] [address] Scheduled Procedures Name Priority Associated Diagnoses Date/Ti [...] Additional history exists CKD PHOS USE SMARTSET 25597 02/12/202401/24, 01/07/2022, 03/12/2021, Additional history exists CKD HGB USE SMARTSET 04394 03/17/202403/17, 03/17/2023, 11/01/2022, Additional history exists Depression [...] Documents on File Type Date Recorded Patient [place] Drill Operator Expl anation POLST 03/19/2020 4:25 PM [...] the patient have Health Care Power of Sales Data Analyst? No Healthcare Agents on File Name Relationship Healthcare Agent Relationship Communication Galdino Camp Other - (no specific identity) Health Care Power of Sales Data Analyst Princess Allen Other - (no specific identity) Health Care Power of Sales Data Analyst Care Teams Rubber Roller Grinder Operator Relationship Specialty Start Date End Date Galdino Andujar, [address] [place] [facility] [place] [address] PCP - General Internal Medicine 01/07/22 documented as of this encounter
--- OUTSIDE RECORDS SUMMARY | 2023-06-01 04:09 | External Medical Summary | Summary of Care ---
Author Name Unknown Organization [facility] Address [address] [place] [address] Phone [phone] Care Team Providers Care Informatics Application Analyst Name Role Phone Galdino Andujar DO Primary Care Provider [phone] Reason for Visit * Reason Onset Date Comments [facility]: Maintenance 03/22/2023 Encounter Details Date Type Department Care Team Description 03/22/2023 Telephone [facility], [facility] [address] [facility] [place] [address] [facility], Nurse [facility] [address] [facility] [place] [address] [facility]: Maintenance Allergies Active Allergy [...] 0 11/28/2019 Active Blood Glucose Monitoring Suppl (Emergent Views ULTRA 2) w/Device KIT Use to test BG values 1 Kit 0 05/20/2020 Active CPAP every night at bedtime. 0 Active BD Pen Needle Short U/F 31G X 8 MM (Insulin Pen Needle) use five times daily 500 Each 3 11/04/2021 Active Blue Tiger LabsTouch Ultra Blue In Vitro Strip (Glucose Blood) [...] NYHA class 1 and CKD stage 3 ([facility]),Chronic diastolic congestive heart failure (HCC) TAKE 1 TABLET BY MOUTH IN THE MORNING AND AT BEDTIME 60 Tablet 5 01/12/2023 Active Eliquis 5 MG Oral Tablet (Apixaban) TAKE 1 TABLET BY MOUTH IN THE MORNING AND AT BEDTIME 60 Tablet 5 01/12/2023 Active Levothyroxine Sodium 50 MCG Oral Tablet (Levoxyl)Indications :Hyperparathyroidism , secondary renal ([facility]) TAKE 1 TABLET BY MOUTH ONCE [...] of 7.0%-8.0% ([facility]) INJECT 58 UNITS UNDER THE SKIN IN THE EVENING 60 mL 03/15/2023 Active Potassium Chloride Ayleen ER 20 MEQ Oral Tablet Extended ReleaseIndications: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, NYHA class 1 and CKD stage 3 ([facility]),Chronic diastolic congestive heart failure (HCC) [...] Noted Date Food insecurity 03/07/2023 Overview: Per [facility] Protocol Type 2 diabetes mellitus wit [...] 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 Call to [facility], pt has [facility] scale in her home. She received by mail 05/2022 and was self installed Unable to find pt on dashboard. Looked pt up by MR# on [facility] her profile exists she is in outreach status Spoke with Gloria at [facility] she will elevate request for help so pt's [facility] weights will transmit Awaiting return call from [facility] documented in this encounter Plan of Treatment Upcoming Encounters Date Type Specialty Care Team Description 03/22/2023 Scheduled Telephone [facility] Resource Manager, [facility] Geoffrey Cisneros [address] [place] [address] 03/23/2023 Scheduled Telephone [facility] Resource Manager, [facility] Geoffrey Cisneros [address] [place] [address] 03/23/2023 Home Visit [facility] Brooke Jose RN [address] [place] [id number] 03/30/2023 Hospital Encounter Surgery Raj Ahn, [address] [place] [address] 03/30/2023 Surgery Surgery Raj Ahn, [address] [place] [address] INJECTION SACROILIAC JOINT 04/06/2023 Home Visit [facility] Brooke Jose RN [address] [place] [address] 04/07/2023 Office Visit Family Medicine Galdino Andujar, DO [address] [place] [address] 04/21/2023 Office Visit Orthopedics Zack Teague, [address] [place] [address] 04/29/2023 Home Visit [facility] Simi Martinez PA-C [address] [place] [address] 05/16/2023 Office Visit Family Medicine Galdino Andujar, DO [address] [facility] [address] 08/08/2023 Nurse Only [facility], Nurse Annual Wellness Visit [address] [facility] [address] [place] [address] Scheduled Procedures Name Priority Associated Diagnoses Date/Ti [...] Additional history exists CKD PHOS USE SMARTSET 40818 02/12/202401/24, 01/07/2022, 03/12/2021, Additional history exists CKD HGB USE SMARTSET 79920 03/17/202403/17, 03/17/2023, 11/01/2022, Additional history exists Depression [...] Documents on File Type Date Recorded Patient Plastic Boat Patcher Expl anation POLST 03/19/2020 4:25 PM POLST [...] the patient have Health Care Power of Tissue Rewinder? No Healthcare Agents on File Name Relationship Healthcare Agent Relationship Communication Galdino Camp Other - (no specific identity) Health Care Power of Tissue Rewinder Princess Allen Other - (no specific identity) Health Care Power of Tissue Rewinder Care Teams Informatics Application Analyst Relationship Specialty Start Date End Date Galdino Andujar, DO [address] [facility] [address] PCP - General Internal Medicine 01/07/22 documented as of this encounter
--- OUTSIDE RECORDS SUMMARY | 2023-06-01 04:10 | External Medical Summary | Summary of Care ---
Author Name Unknown Organization [facility] [address] [address] Phone [phone] Care Team Providers Care Tab Cutting Machine Operator Name Role Phone Lexii Andujar DO Primary Care Provider [phone] Reason for Visit * Reason Comments [facility]: Telehealth Encounter Details Date Type Department Care Team Description 03/18/2023 Telemedicine [facility], [facility] [address] [place] [id number] Lucia Garcia CRNP [address] [place] [address] Jessica Rios, Community Health Support Engineer [address] [place] [address] [place] [id number] Lumbar radiculopathy*; Moderate episode of recurrent major depressive disorder (HCC); Abnormality of gait; Chronic hypoxemic respiratory failure (HCC); Fibromyalgia; ELISSA (obstructive sleep apnea) Allergies Active Allergy Reactions Severity Noted Date [...] as of this encounter (statuses as of 03/20/2023) Medications Medication Sig Dispensed Refills Start Date End Date Status DEMIAN BISWAS LANCETS 33G [facility] Check blood sugars 3-4 times daily 180 Each 5 08/01/2018 Active oxygen GASIndications:ELISSA (obstructive sleep apnea) Use 3 L/min(Oxygen) as directed continuous. 0 11/28/2019 Active Blood Glucose Monitoring Suppl (Panorama EducationTOUCH ULTRA 2) w/Device KIT Use to test [...] MCG Oral Tablet (Levoxyl)Indication s:Postsurgical hypothyroidism TAKE ONE TABLET BY MOUTH IN THE MORNING AT LEAST 30 MINUTES PRIOR TO BREAKFAST OR OTHER MEDS 100 Tablet 1 08/31/2022 Active NovoLOG FlexPen 100 UNIT/ML Subcutaneous Solution Pen-injector (insulin aspart)Indications: Type 2 diabetes mellitus with hemoglobin A1c goal of 7.0%-8.0% ([facility]) Inject 40-45 units with meals + sliding scale 1 units for every 25 units BG > 150. 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, NYHA class 1 and CKD stage 3 ([facility]),Chronic diastolic congestive heart failure ([facility]) TAKE 1 TABLET BY MOUTH IN THE MORNING AND AT BEDTIME 60 Tablet 5 03/16/2023 Active Omeprazole 20 MG Oral Capsule Delayed Release (PriLOSEC)Indicatio ns:Gastroesophageal reflux disease with esophagitis without hemorrhage TAKE 1 CAPSULE BY MOUTH ONCE DAILY IN THE MORNING 30 Capsule 3 03/16/2023 Active clonazePAM 0.5 MG Oral Tablet (KlonoPIN)Indicatio [...] titration plan 30 Tablet 0 03/18/2023 Active DIURETIC TITRATION PLANIndications:Chr onic diastolic congestive heart failure (HCC) If no improvement on day 3, contact heart failure managing provider. 1 Each 0 04/08/2020 03/18/20 Discontinu ed(Medicat ion List Clean Up) Acetaminophen 500 MG Oral Tablet Take 1 Tablet by mouth every 6 hours as needed. 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/31/2021 Atherosclerosis of eek coronary arter 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 12/31/2021 [...] as of this encounter (statuses as of 03/20/2023) Resolved Problems Problem Noted Date Resolved Date [...] as of this encounter (statuses as of 03/20/2023) Immunizations Name Administration Dates Next Due COVID-19 mRNA, LNP-s, No Pre serve, 2-Dose Series (Emefcy) 01/08/2021,12/18/2020 COVID-19, LNP-s, No Preserve , Navarro-sucrose, Ages 12+ (Pfizer) 2022,10/01/2021 Pneumococcal Conjugate Vacci ne, 20-valent (Qccjari64) 03/12/2022 Pneumococcal Polysaccharide PPV23 (Pneumovax) 08/22/2009,06/15/2006 Seasonal [...] Sign Reading Time Taken Comments Blood Pressure 118/68 03/18/2023 9:46 AM EDT Pulse 90 03/18/2023 9:46 AM EDT Temperature 36.5 C (97.7 F) 03/18/2023 9:46 AM ED T Respiratory Rate 20 03/18/2023 9:46 AM EDT Oxygen Saturation 96% 03/18/2023 9:46 AM EDT Inhaled Oxygen Concentration - - Weight - - Height - - Body Mass Index - - documented in this encounter Progress Notes * Lisa Guillen Health Support Engineer - 03/18/2023 9:43 AM EDTMOW Grocery delivery from [facility] Uses SANDRA Ride Rollator - consider power chair dt unable to walk long distances. Cant get in to see therapist dt long ramp Fell x2 nights ago while getting OOB. No injury. * TATIANA Pro - 03/18/2023 8:30 AM EDT Images from the original note were not included. [facility] Problem Oriented Charting Provider Visit Date: 03/18/2023 Time: 9:11 AM [facility] Sub-Program: Primary Care at Home [facility] Episode Start Date: Noted: 06/14/2022 Assessment and Plan #1 Lumbar radiculopathy Assessment & Plan: Upcoming appt with pain mgmt Currently using tramadol with tylenol q 8 hours Continues duloxetine--dose to be lowered in future d/t starting sertraline. Baclofen to use prn. Reports she is using ibuprofen prn severe pain "as last resort" since it does help. Use with caution d/t CKD--defer to pcp #2 Moderate episode of recurrent major depressive disorder (HCC) Assessment & Plan: Followed by pcp, plan to transition from duloxetine to sertraline. Admits to depression d/t uncontrolled pain. Denies suicidal ideation. Has Crisis number to call if needed She currently continues duloxetine 60mg daily until new pill packs are delivered with new doses: Sertraline 50mg daily with duloxetine 30mg daily #3 Abnormality of gait Assessment & Plan: Home PT to start #4 Chronic hypoxemic respiratory failure (HCC) Assessment & Plan: At baseline. -continue O2 3 L at all times. #5 Fibromyalgia #6 ELISSA (obstructive sleep apnea) Overview: CPAP 11 cwp Mild, AHI 11.3 but with significant nocturnal hypoxemia Zhane Assessment & Plan: Continue CPAP Additional Medical Decision Making: Stable today. Closely followed by pcp. RNCM to monitor. Will recheck in Apr. Pt agreeable Check-out note: [facility] scheduling--please reschedule Simi's appt to me via telemedicine sometime in Apr. Scheduled appointments in the next 60 days: Future Appointments-next 60 days Date/Time Provider Specialty Dept Phone 03/23/2023 11:30 AM [facility] [phone] 04/06/2023 4:00 PM [facility] [phone] 04/07/2023 11:20 AM (Arrive by 11:05 AM) Lexii Andujar DO Family Medicine [phone] 04/21/2023 1:15 PM (Arrive by 1:00 PM) Zack Teague DO Orthopedics [phone] 04/29/2023 4:00 PM Simi Martinez PA-C [facility] [phone] 05/16/2023 1:00 PM (Arrive by 12:45 PM) Lexii Andujar DO Family Medicine [phone] 08/08/2023 2:00 PM Nurse Annual Wellness Visit [facility] [phone] A total of 44 minutes was spent face to face (via video-based telemedicine if designated as a telemedicine visit) Subjective Subjective Is this a Telemedicine Visit? Yes, Patient location: HOME. I was not in a hospital or clinic location. After connecting through televideo, patient was verified with two unique identifiers. Patient (or authorized legal life assurance representative) was then informed that this was a Telemedicine visit and being conducted confidentially over secure lines. Methods to assure confidentiality were taken. Patient acknowledged consent and understanding of privacy and security of the Telemedicine visit. The patient agreed to participate. Reason For [facility] Visit: Transition of Care Current Concerns: Stephanie Camp is a 67 year old female seen today for a [facility] provider visit. Pmh: Chronic respiratory failure secondary to possible interstitial lung disease on home oxygen, CPAP at bedtime, chronic diastolic heart failure, PVD, hypertension, diabetes, CKD, creatinine is baseline 1.6, history of PE and DVT status post IVC filter placement and on Eliquis, hypothyroidism, fibromyalgia. [facility] 03/07-03/11-reported to hospital for body aches for several weeks. Using tramadol and gabapentinat him and baclofen but not helping and see pain management in February but having a lot of pain and spasm so reported to the hospital. It is noted she was tearful asking for pain medications reported she can not take morphine but she can take fentanyl. She was given a trial of IV Toradol but creatinine worsened. Blood sugar was uncontrolled on a trial of dexamethasone. Pain management consulted and recommended increase gabapentin to 600 3 times a day and baclofen 10 mg as needed. She is to reschedule outpatient appointment with Dr. Ahn for spinal injection. She was evaluated by psych during admission for depression and recommended increasing duloxetine dose to 90 mg to help with depressivesymptoms and pain. It was noted she needs a repeat EKG in 1-2 weeks to recheck QTC given increased duloxetine and trazodone dose. She was discharged home with home health services. So PCP yesterday at [facility]. She was also seen by MTM for her diabetes Today's concerns are: Still in a lot of pain, low back, buttock and L leg. "Feels like someone is pounding nails in my butt." Symptoms in the past but not this bad, symptom have been bad for one month. Cannot walk far distances, uses rollator. Fell when getting oob 2 nights ago, reports that she needs a knee replacement "but no one will do it." Home PT to start today. She reports she had thoughts of hurting herself prior to going into the hospital. "I would never doanything to myself. I did that so people would believe me and how bad the pain was." Transitioning from duloxetine to zoloft. Gets meals on wheels, can cook She has crisis number--resource book for mental health services in [facility]. Sees Dr. Ahn on 03/30/23. Wearing 3L continuously Compliant with CPAP. Seeing Dr. Andujar in 2 weeks. Additional Review of Systems Constitutional: Positive for activity change and appetite change ("not very good"). Negative for chills and fever. Respiratory: Negative for cough, shortness of breath and wheezing. Cardiovascular: Positive for leg swelling (chronic in feet). Negative for chest pain. Gastrointestinal: Negative for blood in stool, constipation, diarrhea, nausea and vomiting. Genitourinary: Negative for decreased urine volume. Musculoskeletal: Positive for arthralgias (L knee), back pain, gait problem and myalgias. Neurological: Negative for dizziness and light-headedness. Psychiatric/Behavioral: Positive for dysphoric mood. Negative for self-injury and suicidal ideas. Objective Objective Vitals: 03/18/23 0946 Temp: 36.5 C (97.7 F) Pulse: 90 Resp: 20 SpO2: 96% BP: 118/68 Last Weights: Wt Readings from Last 3 Encounters: 03/17/23 (!) 141.9 kg (312 lb 12.8 oz) 03/12/23 (!) 139.3 kg (307 lb) 03/01/23 (!) 142.4 kg (314 lb) Last BPs: BP Readings from Last 4 Encounters: 03/18/23 118/68 03/17/23 120/68 03/12/23 120/64 03/01/23 122/60 Physical Exam Vitals reviewed. Constitutional: General: She is not in acute distress. Appearance: She is obese. She is not toxic-appearing. HENT: Head: Normocephalic. Cardiovascular: Rate and Rhythm: Normal rate and regular rhythm. Heart sounds: No murmur heard. Comments: + 1 bilat pedal. Trace bilat ankle Pulmonary: Effort: Pulmonary effort is normal. No respiratory distress. Breath sounds: Normal breath sounds. Musculoskeletal: Right lower leg: No edema. Left lower leg: No edema. Skin: Coloration: Skin is not pale. Neurological: General: No focal deficit present. Mental Status: She is alert. Psychiatric: Attention and Perception: Attention normal. Mood and Affect: Mood is depressed. Speech: Speech normal. Behavior: Behavior normal. Behavior is cooperative. Thought Content: Thought content does not include suicidal plan. Lab Review: I have reviewed the following results: Lumbar MRI 09/28/18: IMPRESSION IMPRESSION 1. Multilevel degenerative changes are noted throughout the lumbar spine, with moderate spinal canal stenosis present at L2-3 and L3-4. 2. Neural foraminal narrowing is most pronounced at L3-4 bilaterally, (moderate/severe). 3. There is moderate foraminal narrowing at L2-3, L4-5, L5-S1. BMP results Recent Labs Units 03/17/23 1237 [...] - [facility] % -- 7.7* 6.9* HEMOGLOBIN, [id number] LAB 7.1 -- -- TSH results Recent [...] ALT - [facility] U/L 17 14 16 Protein/cr ratio results No results for input(s): PROCRRATIO in the last 21385 hours. Medication Review "Bottles Out" medication review performed today and medication list in EMR updated Has gabapentin bottle of 300mg that she is taking 2 TID, she is not taking the 100mg that is in pill packs. Getting new pill packs around 03/24 She has cephalexin 500mg QID--filled 03/11--given 6 tabs but she has 3 left. Pt reports that she think she was given for cellulitis and pcp told her to not worry about finishing them. Until she gets new pill packs she is going to take duloxetine then will transition to duloxetine 30mg and sertraline 50mg daily with new pill packs 03/24 Mobility Evaluation: [facility] Assessment: Assistive Devices Used in the Home: Walker (standard or rollator) SDoH: NO SOCIAL DETERMINATE NEEDS IDENTIFIED Advance Care Planning Advance Care Planning [place] Information: Health Care Power of Cr[place] (Active): BUBBALEXII - Other - (no specific identity) - [phone] Health Care Power of [place]: LIYA ALLEN - Other - (no specific identity) - [phone] Aligning Care With What Matters Most: After reviewing the preceding "Discerning What Matters Most" conversation, the following decisions were discussed: I think my health is pretty good right now. (11/22/2022 10:22 AM) Interventions/Choices:: CPR; Intubation/mechanical ventilation; Antibiotic therapy; Non-invasive ventilation or BIPAP; Lab draws; Blood transfusion (02/03/2023 12:41 PM) CPR decision: : Patient chooses CPR (12/24/2022 3:00 PM) Intubation/Mechanical Ventilation decision: : Patient chooses Intubation/mechanical ventilation (12/24/2022 3:00 PM) Unacceptable outcomes from Non-invasive ventilation or BIPAP treatment are:: terminal operator (12/24/2022 3:00 PM) Non-invasive ventilation or BIPAP decision: : Patient chooses non-invasive ventilation. Select interventions below (11/22/2022 10:22 AM) Non-Invasive Ventilation Interventions:: Oxygen only; CPAP; BIPAP; NIV (11/22/2022 10:22 AM) Antibiotic therapy decision: : Patient chooses Antibiotic therapy (12/24/2022 3:00 PM) Artificial nutrition decision: : Patient chooses Artificial nutrition (12/24/2022 3:00 PM) IV hydration decision: : Patient chooses IV hydration (12/24/2022 3:00 PM) Blood transfusion decision: : Patient chooses Blood transfusion (12/24/2022 3:00 PM) Lab draw decision: : Patient chooses Lab draws (12/24/2022 3:00 PM) Dialysis decision: : Declines Dialysis (12/24/2022 3:00 PM) Source: Content from [facility] TATIANA Pro 8:53 AM *Communication sent to PCP (via autofax if [facility]), [facility] Health Care Team members,relevant Specialty Care Physicians* documented in this encounter Miscellaneous Notes * Assessment & Plan Note - TATIANA Pro - 03/20/2023 8:17 AM EDT Associated Problem(s): ELISSA (obstructive sleep apnea) Continue CPAP * Assessment & Plan Note - TATIANA Pro - 03/20/2023 8:15 AM EDT Associated Problem(s): Lumbar radiculopathy Upcoming appt with pain mgmt Currently using tramadol with tylenol q 8 hours Continues duloxetine--dose to be lowered in future d/t starting sertraline. Baclofen to use prn. Reports she is using ibuprofen prn severe pain "as last resort" since it does help. Use with caution d/t CKD--defer to pcp * Assessment & Plan Note - TATIANA Pro - 03/20/2023 8:12 AM EDT Associated Problem(s): Moderate episode of recurrent major depressive disorder (HCC) Followed by pcp, plan to transition from duloxetine to sertraline. Admits to depression d/t uncontrolled pain. Denies suicidal ideation. Has Crisis number to call if needed She currently continues duloxetine 60mg daily until new pill packs are delivered with new doses: Sertraline 50mg daily with duloxetine 30mg daily * Assessment & Plan Note - TATIANA Pro - 03/20/2023 8:09 AM EDT Associated Problem(s): Type 2 diabetes mellitus with stage 3b chronic kidney disease, with long-term current use of insulin (HCC) "RED FLAG" Diabetic symptoms: o Other: none Goal HgbA1c o <7 Diabetic Complications o Vascular (examples: PVD, PAD, CAD, CVA) o Renal (example: CKD, Proteinuria, Dialysis) Medication Regimen o Metformin o Basal/Long Acting Insulin o Bolus/Short Acting Insulin o GLP-1 Agonist (ex: Victoza, Trulicity, Ozempic) DM Secondary Prevention o Routine Podiatry Care Additional Comments o Last hgba1c 03/05/23--7.1 o Statin intolerant * Assessment & Plan Note - TATIANA Pro - 03/20/2023 8:05 AM EDT Associated Problem(s): Hypertensive heart and kidney [...] to --unknown o WILI Inhibitor/ARB Therapy: No WLII/ARB/ARNI secondary to: --unknown o Diuretic therapy: Lasix Self - Management Plan o Add metolazone (Zaroxolyn) 2.5-5mg for 1 days. If using a potassium supplement, double the dose of the supplement will be given on the day of and on the day after the metolazone Exacerbation Plan o BMP o Pro-BNP Additional Comments: o Stable today * Assessment & Plan Note - TATIANA Pro - 03/20/2023 8:05 AM EDT Associated Problem(s): Chronic hypoxemic respiratory failure (HCC) At baseline. -continue O2 3 L at all times. * Assessment & Plan Note - TATIANA Pro - 03/20/2023 8:04 AM EDT Associated Problem(s): Abnormality of gait Home PT to start documented in this encounter Plan of Treatment Upcoming Encounters Date Type Specialty Care Team Description 03/23/2023 Home Visit [facility] Brooke Jose RN [address] [place] [address] 03/30/2023 Hospital Encounter Surgery Rja Ahn, DO [address] [place] [address] 03/30/2023 Surgery Surgery Davontebrittany Raj Callum, DO [address] [place] [address] INJECTION SACROILIAC JOINT 04/06/2023 Home Visit [facility] Brooke Jose RN [address] [place], [place] [address] 04/07/2023 Office Visit Family Medicine Lexii Andujar, DO [address] [place] [address] 04/21/2023 Office Visit Orthopedics Zack Teague, DO [address] [place] [address] 04/29/2023 Home Visit [facility] Simi Martinez PA-C [address] [place] [address] 05/16/2023 Office Visit Family Medicine Lexii Andujar, DO [address] [place] [address] 08/08/2023 Nurse Only Ancillary [place], Nurse Annual Wellness Visit [facility] [address] [place] [address] Scheduled Procedures Name Priority Associated Diagnoses Date/Ti [...] Additional history exists CKD PHOS USE SMARTSET 82806 02/12/202401/24, 01/07/2022, 03/12/2021, Additional history exists CKD HGB USE SMARTSET 32050 03/17/202403/17, 03/17/2023, 11/01/2022, Additional history exists Depression [...] as of this encounter Visit Diagnoses Diagnosis Lumbar radiculopathy- Primary Thoracic or lumbosacral neuritis or radiculitis, unspecified Moderate episode of recurrent major depressive disorder (HCC) Abnormality of gait Chronic hypoxemic respiratory failure (HCC) Chronic respiratory failure Fibromyalgia Mylagia and myositis, unspecified ELISSA (obstructive sleep apnea) Obstructive sleep apnea (adult) (pediatric) Inflammation of sacroiliac joint (HCC) Sacroiliitis, not elsewhere classified documented in this encounter Advance Directives Documents on File Type Date Recorded Patient Leather Patcher Expl anation POLST 03/19/2020 4:25 PM [...] the patient have Health Care Power of [place]? No Healthcare Agents on File Name Relationship Healthcare Agent Relationship Communication Lexii Camp Other - (no specific identity) Health Care Power of [place] Liya Allen Other - (no specific identity) Health Care Power of [place] Care Teams Tab Cutting Machine Operator Relationship Specialty Start Date End Date Lexii Andujar, [address] [place] [address] PCP - General Internal Medicine 01/07/22 documented as of this encounter
--- OUTSIDE RECORDS SUMMARY | 2023-06-01 04:10 | External Medical Summary | Summary of Care ---
Author Name Unknown Organization [facility] Address [address] [place] [address] Phone [phone] Care Team Providers Care Guide Domestic Tour Name Role Phone Galdino Andujar DO Primary Care Provider [phone] Reason for Visit * Reason Onset Date Comments Medication Question 03/21/2023 Encounter Details Date Type Department Care Team Description 03/21/2023 Telephone Family Practice [facility] [place] [address] [place] [address] Galdino Andujar DO [address] [place] [address] Medication Question Allergies Active Allergy Reactions Severity Noted Date [...] 0 11/28/2019 Active Blood Glucose Monitoring Suppl (Soloingles.[employer] Internacional ULTRA 2) w/Device KIT Use to test [...] hemoglobin A1c goal of 7.0%-8.0% ([facility]) Inject 40-45 units with meals + sliding [...] Oral Tablet (Levoxyl)Indications :Hyperparathyroidism , secondary renal ([facility]) TAKE 1 TABLET [...] 3 ([facility]),Chronic diastolic congestive heart failure (HCC) TAKE 1 [...] Noted Date Food insecurity 03/07/2023 Overview: Per [facility] Protocol Type 2 diabetes mellitus wit [...] 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 Confirmed that duloxetine 60mg is discontinued and patient is to be on duloxetine 30mg and sertraline 50mg. Also confirmed that potassium per diuretic titration plan is only a prn medication and should not be added to the pill packs with her current dose of potassium 20meq BID. Per TT from TATIANA Pro, additional potassium is only to be used if patient were to start metolazone for hypervolemia. Aliya Cleaning PharmD, [facility] Librarian Medication Therapy Disease Management 03/21/2023 3:59 PM * Telephone Encounter - ELISSA Silva - 03/21/2023 3:00 PM EDT Jose pharmacist, at [facility] is calling to speak with someone regarding new changes topts meds, specifically the potassium. He can be reached at [phone] documented in this encounter Plan of Treatment Upcoming Encounters Date Type Specialty Care Team Description 03/22/2023 Scheduled Telephone [facility] Body And Fender Mechanic, Virginia Cisneros [address] [place] [address] 03/23/2023 Home [facility] Brooke Jose RN [address] [place] [address] 03/30/2023 Hospital Encounter Surgery CousinRaj travis, DO [address] [place] [address] 03/30/2023 Surgery Surgery CouRaj soto, DO [address] [place] [address] INJECTION SACROILIAC JOINT 04/06/2023 Home Visit [facility] Brooke Jose RN [address] [place] [address] 04/07/2023 Office Visit Family Medicine Galdino Andujar, DO [address] [place] [address] 04/21/2023 Office Visit Orthopedics Zack Teague, DO [address] [place] [address] 04/29/2023 Home Visit [facility] Simi Martinez PA-C [address] [place] [address] 05/16/2023 Office Visit Family Medicine Galdino Andujar, DO 293 [place] [address] 08/08/2023 Nurse Only Ancillary Staley, Nurse Annual Wellness Visit [address] [place] [address] Scheduled Procedures Name Priority Associated Diagnoses Date/Ti [...] Additional history exists CKD PHOS USE SMARTSET 19380 02/12/202401/24, 01/07/2022, 03/12/2021, Additional history exists CKD HGB USE SMARTSET 90165 03/17/202403/17, 03/17/2023, 11/01/2022, Additional history exists Depression [...] Documents on File Type Date Recorded Patient Public Health Nurse Expl anation POLST 03/19/2020 4:25 PM POLST [...] the patient have Health Care Power of Plant Culture Manager? No Healthcare Agents on File Name Relationship Healthcare Agent Relationship Communication Galdino Camp Other - (no specific identity) Health Care Power of Plant Culture Manager Princess Allen Other - (no specific identity) Health Care Power of Plant Culture Manager Care Teams Guide Domestic Tour Relationship Specialty Start Date End Date Galdino Andujar, DO [address] [place] [address] PCP - General Internal Medicine 01/07/22 documented as of this encounter
--- OUTSIDE RECORDS SUMMARY | 2023-06-01 04:10 | External Medical Summary | Summary of Care ---
Author Name Unknown Organization [facility] Address [address] [facility] [address] Phone [phone] Care Team Providers Care Glue Jointer Feeder Name Role Phone Lexii Andujar DO Primary Care Provider [phone] Reason for Visit * Reason Comments [facility]: Telehealth Encounter Details Date Type Department Care Team Description 03/18/2023 Telemedicine [facility], [facility] [address] [place] [address] Lucia Garcia CRNP [address] [place] [address] Jessica Rios, Community Health Embalmer Assistant [address] [place] [address] [place] [id number] Lumbar radiculopathy*; Moderate episode of recurrent major [...] End Date Status DEMIAN BISWAS LANCETS [address] [facility] Check blood sugars 3-4 times daily 180 Each 5 08/01/2018 Active oxygen GASIndications:ELISSA (obstructive sleep apnea) Use 3 L/min(Oxygen) as directed continuous. 0 11/28/2019 Active Blood Glucose Monitoring Suppl (ChamateTOUCH ULTRA 2) w/Device KIT Use to test [...] hemoglobin A1c goal of 7.0%-8.0% ([facility]) Inject 40-45 units with meals + sliding scale 1 units for every 25 units BG > 150. 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, NYHA class 1 and CKD stage 3 ([facility]),Chronic diastolic congestive heart failure ([facility]) TAKE 1 TABLET BY MOUTH IN [...] Noted Date Food insecurity 03/07/2023 Overview: Per [facility] Protocol Type 2 diabetes mellitus wit [...] 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/31/2021 Atherosclerosis of [place] coronary arter 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 12/31/2021 [...] mRNA, LNP-s, No Pre serve, 2-Dose Series ([employer]) 01/08/2021,12/18/2020 COVID-19, LNP-s, No Preserve , Navarro-sucrose, Ages 12+ (Pfizer) 2022,10/01/2021 Pneumococcal Conjugate Vacci ne, 20-valent ([id number]) 03/12/2022 Pneumococcal Polysaccharide PPV23 (Pneumovax) 08/22/2009,06/15/2006 Seasonal [...] documented in this encounter Progress Notes * Jessica Rios [facility] Embalmer Assistant - 03/18/2023 9:43 AM EDT Community Health Embalmer Assistant Visit Date: 03/18/2023 Time: 8:30 AM Name: Stephanie Camp : 1955 Referral Source: Provider Source of Information: Patient Spoken language: Kyrgyz Patient can read in Kyrgyz: Yes. Repairer Wood Furniture needed: No. COVID-19 screening completed: Yes Vitals: Vital signs completed: Yes, vital signs within normal range. BP 118/68 | Pulse 90 | Temp 36.5 C (97.7 F) | Resp 20 | LMP 03/11/2003 | SpO2 96% Condition Changes: Changes in health or social status since last visit: [facility] for ROSA #2 - telemed with provider TATIANA Chamberlain. Recent hospitalization d/t uncontrolled pain. Liable mood observed during visit. Tearful, then laughing at her cats Reports she fell 2 nights ago while getting OOB. No injury Reports she lives alone. No friends/family in the area. Uses [employer] for transportation. Receives [employer] and uses grocery delivery from [employer] The patient has new concerns since last visit: Yes, Cant get in to see therapist because she is unable to ambulate the distance from ramp into office. Uses a rollator - consider power chair dt unable to walk long distances. Progress towards goals since last visit: Has Dexcom, states PCP office is "working on scooter", continues with pain management for injections. Patient's Goals of Care: Get dexcom sensor Get scooter Get back injections Medications: Medication review completed? Yes, gaps identified and escalated to nurse/provider: States she is not taking farxiga or 100mg gabapentin. States she "throws them out". And next round of pill packs should be updated to reflect this. reports titration of duloxetine in preparation for switching to sertr ernestina. Does the patient have barriers to medication adherence? No. Patient reports difficulty paying for medications or might in the future: No. Telehealth: This is a telehealth visit: No. Symptoms Surveys and Evaluations: [facility]10 completed this visit: Yes. Score is 4 or more? Yes, notified Provider/Ammunition Components Inspector Last flowsheet values for [facility]: Age 65+: 1 (03/20/2023 3:00 PM) Diagnosis (3 or more co-existing): 1 (03/20/2023 3:00 PM) Prior history of falls within 3 months: 0 (03/20/2023 3:00 PM) Incontinence: 1 (03/20/2023 3:00 PM) Visual impairment: 1 (03/20/2023 3:00 PM) Impaired functional mobility: 1 (03/20/2023 3:00 PM) Environmental hazards: 1 (03/20/2023 3:00 PM) Poly Pharmacy (4 or more prescriptions - any type): 1 (03/20/2023 3:00 PM) Pain affecting level of function: 1 (03/20/2023 3:00 PM) Cognitive impairment: 0 (03/20/2023 3:00 PM) Score - a score of 4 or more is considered at risk for fallin (03/20/2023 3:00 PM) Transition of Care: Patient complains/reports: fall since DC home Plan: Notified Provider/Ammunition Components Inspector of DME needs: power chair/scooter Change in condition: fall two nights ago - no injury Recommended referral for: Other [facility] psychiatry Reviewed patient's three red flags: Patient's 'Red Flags': Unable to wear O2 for any reason (leads to falls) Wt increase to 315lbs Increased SOB Abdominal pain Follow Up: Patient encouraged to call the intake phone number for all urgent but not emergent issues. Scheduled to follow up with patient in PRN. [facility] Embalmer Assistant 03/18/2023 8:30 AM * TATIANA Pro - 03/18/2023 8:30 AM EDT Images from the original note were not included. [facility] [place] Problem Oriented Charting Provider Visit Date: 03/18/2023 Time: 9:[address] [facility] Sub-Program: Primary Care at Home [facility] Episode Start Date: Noted: 06/14/2022 Assessment [...] 11.3 but with significant nocturnal hypoxemia Dickthaddeus Assessment & Plan: Continue CPAP Additional Medical Decision Making: Stable today. Closely followed by pcp. RNCM to monitor. Will recheck in Apr. Pt agreeable Check-out note: [facility] scheduling--please reschedule Simi's appt to me via telemedicine sometime in Apr. Scheduled appointments in the next 60 days: Future Appointments-next 60 days Date/Time Provider Specialty Dept Phone 03/23/2023 11:30 AM [facility] Home [phone] 04/06/2023 4:00 PM [facility] [phone] 04/07/2023 11:20 AM (Arrive by 11:05 AM) Lexii Andujar DO Family Medicine [phone] 04/21/2023 1:15 PM (Arrive by 1:00 PM) Zack Teague DO Orthopedics [phone] 04/29/2023 4:00 PM EVIN Cornejo at Home [phone] 05/16/2023 1:00 PM (Arrive by 12:45 PM) Lexii Andujar DO Family Medicine [phone] 08/08/2023 2:00 PM Nurse Annual Wellness Visit [address] [place] [address] A total of 44 minutes was spent face to face (via video-based telemedicine if designated as a telemedicine visit) Subjective Subjective Is this a Telemedicine Visit? Yes, Patient location: HOME. I was not in a hospital or clinic location. After connecting through televideo, patient was verified with two unique identifiers. Patient (or authorized legal sales representative electric service) was then informed that this was a Telemedicine visit and being conducted confidentially over secure lines. Methods to assure confidentiality were taken. Patient acknowledged consent and understanding of privacy and security of the Telemedicine visit. The patient agreed to participate. Reason For [facility] Visit: Transition of Care Current Concerns: Stephanie [...] filter placement and on Eliquis, hypothyroidism, fibromyalgia. [facility] 03/07-03/11-reported to hospital for body aches for [...] number--resource book for mental health services in [facility]. Sees Dr. Ahn on 03/30/23. Wearing 3L [...] - [facility] % -- 7.7* 6.9* HEMOGLOBIN, O2P-ASXUQRV LAB 7.1 -- -- TSH results Recent [...] results for input(s): PROCRRATIO in the last [id number] hours. Medication Review "Bottles Out" medication review [...] with new pill packs 03/24 [facility]: Assistive Devices Used in the Home: Walker (standard or rollator) SDoH: NO SOCIAL DETERMINATE NEEDS IDENTIFIED Advance Care Planning Advance Care Planning Ziegler Information: Health Care Power of Top And Seat Cover Fitter (Active): LEXII CAMP - Other - (no specific identity) - [phone] Health Care Power of Top And Seat Cover Fitter: LIYA ALLEN - Other - (no specific identity) - [phone] Aligning Care With What Matters Most: After [...] from Non-invasive ventilation or BIPAP treatment are:: pin or clip fastener (12/24/2022 3:00 PM) Non-invasive ventilation or BIPAP [...] Dialysis (12/24/2022 3:00 PM) Source: Content from [employer] Program TATIANA Pro 8:53 AM *Communication sent to PCP (via [facility] if [facility]), [facility] Care Team members,relevant Specialty Care Physicians* documented [...] Team Description 03/22/2023 Scheduled Telephone [facility] Diamond Expert, [facility] [address] [place] [address] 03/23/2023 Home Visit [facility] Brooke Jose RN [address] [place] [address] 03/30/2023 Hospital Encounter Surgery Raj Ahn DO [address] [place] [address] 03/30/2023 Surgery Surgery Raj Ahn DO [address] [place] [address] INJECTION SACROILIAC JOINT 04/06/2023 Home Visit [facility] Brooke Jose RN [address] [place] [address] 04/07/2023 Office Visit Family Medicine Lexii Andujar, DO [address] [place] [address] 04/21/2023 Office Visit Orthopedics Zack Teague, DO [address] [place] [address] 04/29/2023 Home Visit [facility] Simi Martinez PA-C [address] [facility] [place] [address] 05/16/2023 Office Visit Family Medicine Lexii Andujar, DO [address] [place] [address] 08/08/2023 Nurse Only [facility], Nurse Annual Wellness Visit [address] [place] [address] [place] [address] Scheduled Procedures Name Priority Associated Diagnoses Date/Ti me INJECTION SACROILIAC JOINT Inflammation of sacroiliac joint (HCC) 03/30/2023 9:00 AM EDT COLONOSCOPY FLEXIBLE PROXIMAL DIAGNOSTIC Recall Colon cancer screening Health Maintenance Due Date Last Done Comments Cologuard 2000 Fecal Occult Blood Test 2000 Sigmoidoscopy 2000 COVID-19 Vaccine (5 - Pfizer series) 06/08/2022 2022, 10/01/2021, 01/08/2021, Additional history exists Mammogram 02/11/2023 02/11/2022, 010 02/2021, 07/10/2019, Additional history exists DIABETES-EYE EXAM 05/24/2023 05/24/2022, , 04/07/2020, Additional history exists HbA1c 09/04/2023 03/05/2023, 01/24, 11/01/2022, Additional history exists GFR 09/16/2023 03/17/2023, 11/24, 11/01/2022, Additional history exists Albumin/Creatinine Ratio 11/01/2023 023, 01/07/2022, 05/24/2019, Additional history exists DIABETES-FOOT EXAM 11/01/2023 11/01/2022, 0 01/07/2022, 01/14/2021, Additional history exists TSH 11/01/2023 11/01/2022, 12/25, 12/25/2020, Additional history exists CKD PHOS USE SMARTSET 07401 02/12/202401/24, 01/07/2022, 03/12/2021, Additional history exists CKD HGB USE SMARTSET 60783 03/17/202403/17, 03/17/2023, 11/01/2022, Additional history exists Depression [...] Documents on File Type Date Recorded Patient Personal Care Aid Expl anation POLST 03/19/2020 4:25 PM POLST [...] the patient have Health Care Power of Top And Seat Cover Fitter? No Healthcare Agents on File Name Relationship Healthcare Agent Relationship Communication Lexii Camp Other - (no specific identity) Health Care Power of Top And Seat Cover Fitter Liya Allen Other - (no specific identity) Health Care Power of Top And Seat Cover Fitter Care Teams Glue Jointer Feeder Relationship Specialty Start Date End Date Lexii Andujar, DO [address] [place] [address] PCP - General Internal Medicine 01/07/22 documented as of this encounter
--- OUTSIDE RECORDS SUMMARY | 2023-06-01 04:10 | External Medical Summary | Summary of Care ---
Author Name Unknown Organization [facility] Address [address] [place] [address] Phone [phone] Care Team Providers Care Space Systems Operations Superintendent Name Role Phone Gadlino Andujar DO Primary Care Provider Reason for Visit * Reason Onset Date Comments [facility]: Maintenance 03/21/2023 Encounter Details Date Type Department Care Team Description 03/21/2023 Scheduled Telephone [facility], [facility] [address] [place] [address] Coordinator, [facility] [address] [place] [address] Allergies Active Allergy Reactions Severity Noted Date [...] 0 11/28/2019 Active Blood Glucose Monitoring Suppl (Jaree ULTRA 2) w/Device KIT Use to test [...] hemoglobin A1c goal of 7.0%-8.0% ([facility]) Inject 40-45 units with meals [...] (Levoxyl)Indications :Hyperparathyroidism , secondary renal ([facility]) TAKE 1 TABLET BY MOUTH [...] hemoglobin A1c goal of 7.0%-8.0% ([facility]) INJECT 58 UNITS UNDER THE SKIN IN THE EVENING 60 mL 03/15/2023 Active Potassium Chloride Ayleen ER 20 MEQ Oral Tablet Extended ReleaseIndications: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, NYHA class 1 and CKD stage 3 ([facility]),Chronic diastolic congestive heart failure (HCC) [...] of breath),Small airways disease,ILD (interstitial lung disease) ([facility]) 2.5 mg NEBULIZER PRN 01/07/2023 01/07/2024 Active documented as of this encounter (statuses as of 03/21/2023) Active Problems Problem Noted Date Food insecurity 03/07/2023 Overview: Per [facility] Protocol Type 2 diabetes mellitus wit [...] 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 [facility] Telephonic Nurse Follow-Up Call [facility] Subprogram: Primary Care at Home Follow [...] [facility] Future Visits Scheduled: Future Appointments-next 60 days Date/Time Provider Specialty Dept Phone 03/22/2023 9:30 AM [facility] Geoffrey CisnerosIndustrial Registered Nurse [facility] [phone] 03/23/2023 11:30 AM [facility] [phone] 04/06/2023 4:00 PM [facility] [phone] 04/07/2023 11:20 AM (Arrive by 11:05 AM) Galdino Andujar DO Family Medicine [phone] 04/21/2023 1:15 PM (Arrive by 1:00 PM) Zack Teague DO Orthopedics [phone] 04/29/2023 4:00 PM Simi Martinez PA-C [facility] [phone] 05/16/2023 1:00 PM (Arrive by 12:45 PM) Galdino Andujar DO Family Medicine [phone] 08/08/2023 2:00 PM Nurse Annual Wellness Visit [facility] [phone] Frances Marcial RN Twist Maker [facility] documented in this encounter Plan of Treatment Upcoming Encounters Date Type Specialty Care Team Description 03/22/2023 Scheduled Telephone [facility] Film Masker, [facility] Geoffrey Cisneros [address] [place] [address] 03/23/2023 Home Visit [facility] Brooke Jose RN [address] [place] [address] 03/30/2023 Hospital Encounter Surgery Raj Ahn, DO [address] [place] [address] 03/30/2023 Surgery Surgery Raj Ahn, DO [address] [place] [address] INJECTION SACROILIAC JOINT 04/06/2023 Home Visit [facility] Brooke Jose RN [address] [place] [address] 04/07/2023 Office Visit Family Medicine Galdino Andujar, DO [address] [facility] [place] [address] 04/21/2023 Office Visit Orthopedics Zack Teague, DO [address] [place] [address] 04/29/2023 Home Visit [facility] Simi Martinez PA-C [address] [place] [address] 05/16/2023 Office Visit Family Medicine Galdino Andujar, DO [address] [facility] [place] [address] 08/08/2023 Nurse Only Ancillary [place], Nurse Annual Wellness Visit [address] [place] [address], [place] [address] Scheduled Procedures Name Priority Associated Diagnoses Date/Ti [...] Additional history exists CKD PHOS USE SMARTSET 66393 02/12/202401/24, 01/07/2022, 03/12/2021, Additional history exists CKD HGB USE SMARTSET 36614 03/17/202403/17, 03/17/2023, 11/01/2022, Additional history exists Depression [...] Documents on File Type Date Recorded Patient Dairy Associate Expl anation POLST 03/19/2020 4:25 PM POLST [...] the patient have Health Care Power of Supervisor Special Services? No Healthcare Agents on File Name Relationship Healthcare Agent Relationship Communication Galdino Camp Other - (no specific identity) Health Care Power of Supervisor Special Services Princess Staplesfany Other - (no specific identity) Health Care Power of Supervisor Special Services Care Teams Space Systems Operations Superintendent Relationship Specialty Start Date End Date Galdino Andujar, [address] [place] [address] PCP - General Internal Medicine 01/07/22 documented as of this encounter
--- OUTSIDE RECORDS SUMMARY | 2023-06-01 04:10 | External Medical Summary | Summary of Care ---
Author Name Unknown Organization [facility] Address [address] [place] [address] Phone [phone] Care Team Providers Care Tab Cutter Name Role Phone Galdino Andujar DO Primary Care Provider [phone] Reason for Visit * Reason Onset Date Comments Test Results 03/18/202303/18 Encounter Details Date Type Department Care Team Description 03/18/2023 Telephone Family Practice [address] [place] [address] [place] [id number] Galdino Andujar DO [address] [place], [place] [id number] Test Results (03/18 ) Allergies Active Allergy Reactions Severity Noted [...] as of this encounter (statuses as of 03/18/2023) Medications Medication Sig Dispensed Refills Start Date End Date Status ONETOUCH DELICA LANCETS 33G MISC Check blood sugars 3-4 times daily 180 Each 5 08/01/2018 Active oxygen GASIndications:ELISSA (obstructive sleep apnea) Use 3 L/min(Oxygen) as directed continuous. 0 11/28/2019 Active Blood Glucose Monitoring Suppl (CashBet ULTRA 2) w/Device KIT Use to test BG values 1 Kit 0 05/20/2020 Active CPAP every night at bedtime. 0 Active BD Pen Needle Short U/F 31G X 8 MM (Insulin Pen Needle) use five times daily 500 Each 3 11/04/2021 Active InvestGlassTouch Ultra Blue In Vitro Strip (Glucose Blood) [...] of breath),Small airways disease,ILD (interstitial lung disease) ([facility]) 2.5 mg NEBULIZER PRN 01/07/2023 01/07/2024 Active documented as of this encounter (statuses as of 03/18/2023) Active Problems Problem Noted Date Food insecurity 03/07/2023 Overview: Per [facility] Protocol Type 2 diabetes mellitus wit h stage 3b chronic kidney disease, with long-term current use of insulin 09/29/2022 Last Assessment & Plan: Last hemoglobin A1c 6.9 Current Status: Actively exacerbating Degree of Condition Awareness: Demonstrates very good awareness of condition, disease course, and prognosis "RED FLAG" Diabetic symptoms: o none Goal HgbA1c o <8 Diabetic Complications o Vascular (examples: PVD, PAD, CAD, CVA) o Renal (example: CKD, Proteinuria, Dialysis) Medication Regimen o Metformin o Bolus/Short Acting Insulin o GLP-1 Agonist (ex: Victoza, Trulicity, Ozempic) o Other: Tresiba DM Secondary Prevention o Routine Podiatry Care o Yearly Diabetic Eye Exam Blood sugars recently worse due to steroids. 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/31/2021 Atherosclerosis of prairie band coronary arter 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 12/31/2021 [...] kidney disease 05/14/2019 Last Assessment & Plan: Current Status: "Stable" for patient / At or near baseline Degree of Condition Awareness: Demonstrates very good awareness of condition, disease course, and prognosis "RED FLAG" HF Symptoms: o NO IDENTIFIED SYMPTOMS Current Heart Failure Classifications: o With ordinary activity such as doing housework, yard work or shopping ([employer] [facility] CLASS II) Diagnostic Review: Recent Labs Units 12/08/22 1515 11/01/22 1413 11/27/21 0000 03/20/21 1537 BNP (NT-PRO-BNP) - [facility] pg/mL -- -- -- 154 ESTIMATED GLOMERULAR FILTRATION RATE - [facility] mL/min 33* 35* < > 33.8* EGFR-OUTSIDE LAB -- -- < > -- HGB - [facility] g/dL -- 13.3 < > 13.2 HEMOGLOBIN-OUTSIDE LAB -- -- < > -- < > = values in this interval not displayed. Medication Regimen: o Beta Faviola Therapy: Other: none ?low BP o WILI Inhibitor/ARB Therapy: Other: none ? low bp o Diuretic therapy: Lasix Metolazone Self - Management Plan o Add metolazone (Zaroxolyn) 2.5-5mg for 2 days. If using a potassium supplement, double the dose of the supplement will be given on the day of and on the day after the metolazone Exacerbation Plan o Anticipated IV Lasix dose: 80 mg Lumbar radiculopathy 09/27/2018 Chronic diastolic congestive heart failu re 06/12/2018 Controlled substance agreement signed Morbid obesity with BMI of 50.0-59.9, ad ult 06/27/2017 Overview: Per Obesity protocol #1 - Per Obesity Taxonomy ICD-10 update of inactive term Gastroesophageal reflux disease with eso phagitis 03/04/2017 Last Assessment & Plan: Continue omeprazole Restless legs syndrome 03/25/2016 Last Assessment & Plan: Continue Requip Fibromyalgia 02/02/2016 Last Assessment & Plan: Continue tramadol Abnormality of gait 02/02/[address] 08/19/2014 History of [...] as of this encounter (statuses as of 03/18/2023) Resolved Problems Problem Noted Date Resolved Date [...] Vaginal karmen 07/13/2018 08/26/2018 Hypervolemia 07/13/2018 08/26/2018 Heparin-induced thrombocytopenia 06/12/2018 08/26/2018 ELSIE (acute kidney [...] as of this encounter (statuses as of 03/18/2023) Immunizations Name Administration Dates Next Due COVID-19 mRNA, LNP-s, No Pre serve, 2-Dose Series ([facility]) 01/08/2021,12/18/2020 COVID-19, LNP-s, No Preserve , Navarro-sucrose, Ages 12+ (Pfizer) 2022,10/01/2021 Pneumococcal Conjugate Vacci ne, 20-valent ([id number]) 03/12/2022 Pneumococcal Polysaccharide PPV23 (Pneumovax) 08/22/2009,06/15/2006 Seasonal [...] Telephone Encounter - Shira Gross LPN - 03/18/2023 5:03 PM EDT Patient is aware and will comply. Will have done prior to injection with Dr Ahn. Thank you * Telephone Encounter - Shira Gross LPN - 03/18/2023 5:00 PM EDT ----- Message from Galdino Andujar DO sent at 03/18/2023 3:45 PM EDT ----- CKD is stable WBC is up Check CBC and Peripheral smear in 2 weeks documented in this encounter Plan of Treatment Upcoming Encounters Date Type Specialty Care Team Description 03/23/2023 Home Visit [facility] Brooek Jose RN [address] [place] [address] 03/30/2023 Hospital Encounter Surgery Raj Ahn DO [address] [place] [address] 03/30/2023 Surgery Surgery Raj Ahn DO [address] [place] [address] INJECTION SACROILIAC JOINT 04/06/2023 Home Visit [facility] Brooke Jose RN [address] [place] [address] 04/07/2023 Office Visit Family Medicine Galdino Andujar DO [address] [facility] [place] [address] 04/21/2023 Office Visit Orthopedics Zack Teague, DO [address] [place] [address] 04/29/2023 Home Visit [facility] Simi Martinez PA-C [address] [place] [address] 05/16/2023 Office Visit Family Medicine Galdino Andujar, DO [address] [place] [address] 08/08/2023 Nurse Only Ancillary Debary, Nurse Annual Wellness Visit [address] [facility] [address] [place] [address] Scheduled Orders Name Type Priority Associated Diagnoses Orde r Schedule CBC Lab Routine Elevated white blood cell count Expected: 04/01/2023 (Approximate), Expires: 03/17/2024 BLOOD SMEAR INTERPRETATION BY PATHOLOGIST Lab Routine Elevated white blood cell count Expected: 04/01/2023 (Approximate), Expires: 03/17/2024 Scheduled Procedures Name Priority Associated Diagnoses Date/Ti [...] Additional history exists CKD PHOS USE SMARTSET 91846 02/12/202401/24, 01/07/2022, 03/12/2021, Additional history exists CKD HGB USE SMARTSET 85027 03/17/202403/17, 03/17/2023, 11/01/2022, Additional history exists Depression [...] as of this encounter Visit Diagnoses Diagnosis Elevated white blood cell count- Primary Leukocytosis, unspecified Inflammation of sacroiliac joint (HCC) Sacroiliitis, not elsewhere classified documented in this encounter Advance Directives Documents on File Type Date Recorded Patient Feeder Operator Automatic Expl anation POLST 03/19/2020 4:25 PM POLST [...] the patient have Health Care Power of Gynaecological Oncologist? No Healthcare Agents on File Name Relationship Healthcare Agent Relationship Communication Galdino Camp Other - (no specific identity) Health Care Power of Gynaecological Oncologist Princess Allen Other - (no specific identity) Health Care Power of Gynaecological Oncologist Care Teams Tab Cutter Relationship Specialty Start Date End Date Galdino Andujar, DO [address] [facility] [place] [address] PCP - General Internal Medicine 01/07/22 documented as of this encounter
--- OUTSIDE RECORDS SUMMARY | 2023-06-01 04:10 | External Medical Summary | Summary of Care ---
Author Name Unknown Organization [facility] Address [address] [place] [address] Phone [phone] Care Team Providers Care Feed Mill Manager Name Role Phone Galdino Andujar DO Primary Care Provider [phone] Encounter Details Date Type Department Care Team Description 03/20[facility]2023 [facility] [address] [facility] [place] [address] [facility], Nurse [facility] [address] [facility] [place] [address] Allergies Active Allergy Reactions Severity Noted Date [...] 0 11/28/2019 Active Blood Glucose Monitoring Suppl (SellStageTOSpangle ULTRA 2) w/Device KIT Use to test [...] goal of 7.0%-8.0% ([facility]) Inject 40-45 units with meals + sliding [...] (Levoxyl)Indications :Hyperparathyroidism , secondary renal ([facility]) TAKE 1 TABLET BY MOUTH ONCE DAILY [...] goal of 7.0%-8.0% ([facility]) INJECT 58 UNITS UNDER THE SKIN IN THE EVENING 60 mL 3 03/15/2023 Active Potassium Chloride Ayleen ER 20 MEQ Oral Tablet Extended ReleaseIndications: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, NYHA class 1 and CKD stage 3 ([facility]),Chronic diastolic congestive heart failure ([facility]) TAKE 1 TABLET BY MOUTH IN THE [...] inhalation solution 2.5 mgIndications:Chronic hypoxemic respiratory failure ([facility]),SOB (shortness of breath),Small airways disease,ILD (interstitial lung disease) ([facility]) 2.5 mg NEBULIZER PRN 01/07/2023 01/07/2024 Active Albuterol Sulfate (Proventil) (5 MG/ML) 0.5% *conc* inhalation solution 2.5 mgIndications:Chronic hypoxemic respiratory failure (HCC),SOB (shortness of breath),Small airways disease,ILD (interstitial lung disease) (HCC) 2.5 mg NEBULIZER PRN 01/07/2023 01/07/2024 Active documented as of this encounter (statuses as of 03/20/2023) Active Problems Problem Noted Date Food insecurity 03/07/2023 Overview: Per [facility] Protocol Type [...] 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/31/2021 Atherosclerosis of [place] coronary arter 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 12/31/2021 [...] mRNA, LNP-s, No Pre serve, 2-Dose Series (Pencil You In) 01/08/2021,12/18/2020 COVID-19, LNP-s, No Preserve , Navarro-sucrose, Ages 12+ (Pfizer) 2022,10/01/2021 Pneumococcal Conjugate Vacci ne, 20-valent ([id number]) 03/12/2022 Pneumococcal Polysaccharide PPV23 (Pneumovax) 08/22/2009,06/15/2006 Seasonal [...] Sign Reading Time Taken Comments Blood Pressure 136/64 03/20/2023 2:53 PM EDT Pulse - - Temperature 36.5 C (97.7 F) 03/20/2023 2:53 PM ED T Respiratory Rate 18 03/20/2023 2:53 PM EDT Oxygen Saturation 98% 03/20/2023 2:53 PM EDT 3lnc Inhaled Oxygen Concentration - - Weight 141.5 kg (312 lb) 03/20/2023 2:53 PM EDT Height - - Body Mass Index 51.92 03/17/2023 11:11 AM EDT documented in this encounter Progress Notes * Brooke Jose RN - 03/20/2023 10:43 AM EDT Images from the original note were not included. [facility] StripperBox Maker Paperboard Visit Date: 03/20/2023 Time: 10:43 AM Name: Stephanie Camp : 1955 Situation: Acute visit for back pain, abdominal discomfort, frequent urination, nausea Background: PMHx: Frank filter, CHF, CHF, DVT, venous insufficiency, vasculitis, CAD, carotid stenosis, chronic hypoxemic respiratory failure, ELISSA, o2 dependent, GERD, DM, Hx PE, spinal stenosis [place] pretty good yesterday, was able to sit outside Assessment: BACK PAIN: Pt with chronic back pain 06/05 today, ''spasming'' Taking baclofen 10mg bid, ''not helping'' Has apt with Dr. Ahn (ortho) for back injections on 03/30 Takes gabapentin, tramadol and apap Taking all q8h as has been instructed - stagers tramadol, takes 4 hrs after gabapentin and apap Using ice today Declined assist with putting on lidocaine patch, ''doesn't work'' Pain usually limited to L-spine but is up into T-spine today Occasionally ''can't take a deep breath b/c it hurts'' Currently receiving PT S/S UTI: Started with frequency last nigh Has cramping in lower abdomen +L flank pain bsg usually in low 100's but was 300 this morning Denies fever, chills CBCd 03/17/23: Component Ref Range & Units 3 d ago WBC 4.00 - 10.80 K/uL 12.35High Neutrophils % 40.0 - 75.0 % 68.8 Lymphocytes % 18.0 - 42.0 % 20.2 Monocytes % 1.0 - 11.0 % 6.9 Eosinophils % 0.0 - 6.0 % 2.9 Basophils % 0.0 - 2.0 % 0.6 Immature Granulocytes % 0.0 - 2.0 % 0.6 Absolute Neutrophils 1.80 - 7.70 K/uL 8.49High Absolute Lymphocytes 1.00 - 4.80 K/ul 2.50 Absolute Monocytes 0.00 - 1.10 K/uL 0.85 Absolute Eosinophils 0.00 - 0.70 K/uL 0.36 Absolute Basophils 0.00 - 0.20 K/uL 0.08 Absolute Immature Granulocytes 0.00 - 0.20 K/uL 0.07 Resulting Agency [facility] Specimen Collected: 03/17/23 12:37 Last Resulted: 03/17/23 22:38 CHF: Lungs CTA, abdomen soft, +1 b/l le pitting edema Wt Readings from Last 7 Encounters: 03/20/23 (!) 141.5 kg (312 lb) 03/17/23 (!) 141.9 kg (312 lb 12.8 oz) 03/12/23 (!) 139.3 kg (307 lb) 03/01/23 (!) 142.4 kg (314 lb) 02/11/23 (!) 144.7 kg (318 lb 14.4 oz) 02/02/23 (!) 142 kg (313 lb) 01/25/23 (!) 142.4 kg (314 lb) Tearful, ''tired of feeling bad'' PCP working with pt to adjust antidepressant meds Denies suicidal ideation Breathing at/near baseline Did not weigh today d/t ''miserable'' BP 136/64 | Temp 36.5 C (97.7 F) | Resp 18 | Wt (!) 141.5 kg (312 lb) | LMP 03/11/2003 | SpO2 98% Comment: 3lnc | BMI 51.92 kg/m | BSA 2.55 m Recommendation: Urine to reflex collected - will drop off at clinic first thing tomorrow morning. Will keep on ice for transport and in fridge overnight. Problems/Symptoms: Review of Systems Constitutional: Positive for appetite change ("not very good"). Negative for activity change, chills and fever. HENT: Negative for congestion. Eyes: Negative. Respiratory: Negative for cough, shortness of breath and wheezing. Cardiovascular: Positive for leg swelling (+1 b/l le pitting). Negative for chest pain and palpitations. Gastrointestinal: Negative for abdominal distention, abdominal pain, blood in stool, constipation, diarrhea, nausea and vomiting. Endocrine: Negative. Genitourinary: Positive for dysuria, flank pain and frequency. Negative for decreased urine volume. Musculoskeletal: Positive for arthralgias (L knee), back pain, gait problem and myalgias. Skin: Negative for color change. Allergic/Immunologic: Negative. Neurological: Positive for weakness (d/t pain). Negative for dizziness and light-headedness. Hematological: Bruises/bleeds easily. Psychiatric/Behavioral: Positive for dysphoric mood. Negative for self-injury and suicidal ideas. All other systems reviewed and are negative. Physical Exam: BP 136/64 | Temp 36.5 C (97.7 F) | Resp 18 | Wt (!) 141.5 kg (312 lb) | LMP 03/11/2003 | SpO2 98% Comment: 3lnc | BMI 51.92 kg/m | BSA 2.55 m Pain 9 Physical Exam Vitals reviewed. Constitutional: General: She is not in acute distress. Appearance: She is obese. She is not toxic-appearing. HENT: Head: Normocephalic. Cardiovascular: Rate and Rhythm: Normal rate and regular rhythm. Heart sounds: No murmur heard. Comments: + 1 bilat pedal. Trace bilat ankle Pulmonary: Effort: Pulmonary effort is normal. No respiratory distress. Breath sounds: Normal breath sounds. Abdominal: General: There is no distension. Palpations: Abdomen is soft. Musculoskeletal: Right lower leg: Edema present. Left lower leg: Edema present. Skin: Coloration: Skin is not pale. Neurological: General: No focal deficit present. Mental Status: She is alert. Psychiatric: Attention and Perception: Attention normal. Mood and Affect: Mood is depressed. Speech: Speech normal. Behavior: Behavior normal. Behavior is cooperative. Thought Content: Thought content does not include suicidal plan. [facility]-10 Completed this Visit: [facility]. [facility] Reason Completed: Status post acute event/change in baseline [facility]-10 Interventions: Fall education provided, reviewed/provided Fall brochure Treatment/Plan: Receives MOW Ortho referral placed 01/25/23 for back pain management INSTRUCT AT EACH VISIT: CALL [facility] PRIOR TO GOING TO ER FOR ANY REASON [facility] [employer] DRY WT as of 08/03/22 - 313lbs Frequent UTI's - typically asymptomatic until has fever, has standing order for urine culture Ambulate with roller walker at ALL times o2 2lnc at rest, 4Lnc with activity - [facility] [phone] WEAR O2 AT ALL TIMES OR BECOMES [...] for fluid overload-take only as advised Has Dexcom 5 - follows with [facility], glucose monitor in home for backup Per ortho - not a candidate for knee surgery until loses weight Chronic back pain/sciatica - gets injections of SI joints Patient's 'Red Flags': Unable to wear o2 for any reason (leads to falls) Wt increase to 315lbs Increased sob Abdominal pain Home Interventions Provided: Labs/Specimen Collection Performed urine to reflex Lab/Imaging Ordered urine to reflex Consulted PCP/Specialist Reinforced current Plan of Care, including self-management and medication regimen Patient Needs to Remember: Call [facility] with red flags Referrals Needed: Other none Follow Up: Is there cellular connectivity/connectivity in the home? Yes Does the patient have internet in the home? Yes Patient encouraged to call the intake phone number for all urgent but not emergent issues. Scheduled to follow up with patient in daily x2 days with calls. Brooke Jose RN 03/20/2023 10:43 AM documented in this encounter Plan of Treatment Upcoming Encounters Date Type Specialty Care Team Description 03/21/2023 Scheduled Telephone [facility] Keyboard Instrument Repairer, [facility] [address] [place] [address] 03/22/2023 Scheduled Telephone [facility] Keyboard Instrument Repairer, [facility] [address] [place] [address] 03/23/2023 Home Visit [facility] Brooke Jose RN [address] [place] [address] 03/30/2023 Hospital Encounter Surgery Raj Ahn, [address] [place] [address] 03/30/2023 Surgery Surgery Raj Ahn, DO [address] [place] [address] INJECTION SACROILIAC JOINT 04/06/2023 Home Visit [facility] Brooke Jose RN [address] [place] [address] 04/07/2023 Office Visit Family Medicine Galdino Andujar, DO [address] [facility], [place] [address] 04/21/2023 Office Visit Orthopedics Zack Teague, DO [address] [place] [address] 04/29/2023 Home Visit [facility] Simi Martinez PA-C [address] [place] [address] 05/16/2023 Office Visit Family Medicine Galdino Andujar, [address] [facility] [place] [address] 08/08/2023 Nurse Only Ancillary College, Nurse Annual Wellness Visit [address] [facility], [place] [address] Scheduled Procedures Name Priority Associated Diagnoses Date/Ti [...] Additional history exists CKD PHOS USE SMARTSET 48160 02/12/202401/24, 01/07/2022, 03/12/2021, Additional history exists CKD HGB USE SMARTSET 82766 03/17/202403/17, 03/17/2023, 11/01/2022, Additional history exists Depression [...] Documents on File Type Date Recorded Patient Assembler Wire Group Expl anation POLST 03/19/2020 4:25 PM POLST [...] the patient have Health Care Power of Racing Car Driver? No Healthcare Agents on File Name Relationship Healthcare Agent Relationship Communication Galdino Camp Other - (no specific identity) Health Care Power of Racing Car Driver Princess Allen Other - (no specific identity) Health Care Power of Racing Car Driver Care Teams Feed Mill Manager Relationship Specialty Start Date End Date Galdino Anudjar, [address] [facility] [place] [address] PCP - General Internal Medicine 01/07/22 documented as of this encounter
--- OUTSIDE RECORDS SUMMARY | 2023-06-01 04:10 | External Medical Summary ---
Author Name Unknown Address Unknown Organization K01:LABORATORY [facility] - [address] [facility] [place] [address] Laboratory Report Ordering Provider Test Date Status ANDREAS SANCHEZ 03/21/2023 09:06:52 Final Observation Date Value Abnormality Reference (Units ) Status Bacteria identified in Unspecified specimen by Culture 03/21/2023 09:06:52 [id number] CTER FREUNDII Abnormal Final Performing Location [facility] - [address] [place] [address] Ordering Provider Test Date Status ANDREAS SANCHEZ 03/21/2023 09:06:52 Final Observation Date Value Abnormality Reference (Units ) Status Cefepime susceptibility 03/21/2023 09:06:52 <=1 Susceptible Final cefOXitin [Susceptibility] 03/21/2023 09:06:52 >=64 Resistant Final Ceftriaxone suceptibility 03/21/2023 09:06:52 16 Resistant Final Ciprofloxacin 03/21/2023 09:06:52 <=0.25 Susceptible Final Performing Location [facility] - [address] [facility] [address]
--- OUTSIDE RECORDS SUMMARY | 2023-06-01 04:10 | External Medical Summary | Summary of Care ---
Author Name Unknown Organization [facility] Address [address] [place] [address] Phone [phone] Care Team Providers Care Program Director Substance Abuse Name Role Phone ZiaandrewsGaldino DO Primary Care Provider [phone] Reason for Visit * Reason Comments Outpatient Testing Encounter Details Date Type Department Care Team Description 03/21/2023 Laboratory Laboratory [facility] [address] [place] [address] Pod3, Specimen Drop Off [facility] [address] [place] [address] Urinary frequency Allergies Active Allergy Reactions Severity Noted Date [...] 0 11/28/2019 Active Blood Glucose Monitoring Suppl (Eliza CorporationUCH ULTRA 2) w/Device KIT Use to test [...] [facility]),Chronic diastolic congestive heart failure ([facility]) TAKE 1 [...] inhalation solution 2.5 mgIndications:Chronic hypoxemic respiratory failure ([facility]),SOB (shortness of breath),Small airways disease,ILD (interstitial lung [...] Noted Date Food insecurity 03/07/2023 Overview: Per [facility] Protocol Type 2 diabetes mellitus [...] 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/31/2021 Atherosclerosis of robinson coronary arter 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 12/31/2021 [...] Assessment & Plan: Home PT to start [place] filter in place 08/19/2014 History of pulmonary [...] mRNA, LNP-s, No Pre serve, 2-Dose Series ([employer]oSys) 01/08/2021,12/18/2020 COVID-19, LNP-s, No Preserve , Navarro-sucrose, Ages 12+ (Pfizer) 2022,10/01/2021 Pneumococcal Conjugate Vacci ne, 20-valent ([id number]) 03/12/2022 Pneumococcal Polysaccharide PPV23 (Pneumovax) 08/22/2009,06/15/2006 Seasonal [...] Team Description 03/21/2023 Scheduled Telephone [facility], [facility] [address] [place] [address] 03/22/2023 Scheduled Telephone [facility] [facility], [facility] [address] [place] [address] 03/23/2023 Home Visit [facility] Brooke Jose RN [address] [place] [address] 03/30/2023 Hospital Encounter Surgery Raj Ahn, DO [address] [place] [address] 03/30/2023 Surgery Surgery Raj Ahn, DO [address] [place] [address] INJECTION SACROILIAC JOINT 04/06/2023 Home Visit [facility] Brooke Jose RN [address] [place] [address] 04/07/2023 Office Visit Family Medicine Galdino Andujar, DO [address] [place] [address] 04/21/2023 Office Visit Orthopedics Zack Teague, DO [address] [place] [address] 04/29/2023 Home Visit [facility] Simi Martinez PA-C [address] [place] [address] 05/16/2023 Office Visit Family Medicine Galdino Andujar, [address] [place] [address] 08/08/2023 Nurse Only Ancillary College, Nurse Annual Wellness Visit [address] [place] [address] Pending Results Name Type Priority Associated Diagnoses Date /Time URINALYSIS, REFLEX TO CULTURE (NOT FOR NEUTROPENIC PATIENTS) Lab Routine Urinary frequency 03/21/2023 9:06 AM EDT URINALYSIS, REFLEX TO CULTURE (CUP ONLY) Lab Routine Urinary frequency 03/21/2023 9:06 AM EDT URINALYSIS, REFLEX TO CULTURE Lab Routine Urinary frequency 03/21/2023 9:06 AM EDT Scheduled Procedures Name Priority Associated Diagnoses Date/Ti [...] Additional history exists CKD PHOS USE SMARTSET 10270 02/12/202401/24, 01/07/2022, 03/12/2021, Additional history exists CKD HGB USE SMARTSET 52844 03/17/202403/17, 03/17/2023, 11/01/2022, Additional history exists Depression [...] of this encounter Visit Diagnoses Diagnosis Urinary frequency Inflammation of sacroiliac joint (HCC) Sacroiliitis, not elsewhere classified documented in this encounter Advance Directives Documents on File Type Date Recorded Patient Pumpman Expl anation POLST 03/19/2020 4:25 PM POLST [...] the patient have Health Care Power of Well Puller Head? No Healthcare Agents on File Name Relationship Healthcare Agent Relationship Communication Galdino Camp Other - (no specific identity) Health Care Power of Well Puller Head Princess Allen Other - (no specific identity) Health Care Power of Well Puller Head Care Teams Program Director Substance Abuse Relationship Specialty Start Date End Date Galdino Andujar, DO [address] [place] [address] PCP - General Internal Medicine 01/07/22 documented as of this encounter
--- OUTSIDE RECORDS SUMMARY | 2023-06-01 04:10 | External Medical Summary ---
Author Name Unknown Address Unknown Organization K01:[facility] - [address] [facility] [place] [address] Laboratory Report Ordering Provider Test Date Status ANDREAS SANCHEZ 03/21/2023 09:06:52 Final Observation Date Value Abnormality Reference (Units ) Status Color of Urine by Auto 03/21/2023 09:06:52 Light Yellow Colorless, Light Yellow, Yellow, Dark Yellow Final Clarity, Urine 03/21/2023 09:06:52 Clear Clear Final Glucose [Mass/volume] in Urine by Automated test strip 03/21/2023 09:06:52 Negative Negative (mg/dL) Final Bilirubin.total [Presence] in Urine by Automated test strip 03/21/2023 09:06:52 Negative Negative Final Ketones [Mass/volume] in Urine by Automated test strip 03/21/2023 09:06:52 Negative Negative (mg/dL) Final Specific gravity, Urine 03/21/2023 09:06:52 1.018 1.003-1.030 Final Hemoglobin [Presence] in Urine by Automated test strip 03/21/2023 09:06:52 Negative Negative Final pH, Urine 03/21/2023 09:06:52 6.0 5.0-7.5 (Units) Final Protein [Mass/volume] in Urine by Automated test strip 03/21/2023 09:06:52 Negative Negative (mg/dL) Final Urobilinogen [Mass/volume] in Urine by Automated test strip 03/21/2023 09:06:52 Normal Normal (mg/dL) Final Nitrite [Presence] in Urine by Automated test strip 03/21/2023 09:06:52 Negative Negative Final Leukocyte esterase [Presence] in Urine by Automated test strip 03/21/2023 09:06:52 Small Abnormal Negative Final RBC, Urine 03/21/2023 09:06:52 0-2 0-2 (/HPF) Final WBC, Urine 03/21/2023 09:06:52 20-29 Abnormal 0-2 (/HPF) Final Bacteria [#/area] in Urine sediment by Microscopy high power field 03/21/2023 09:06:52 0-25 0-25 (/HPF) Final CULTURE, URINE - MIKAYLA 03/21/2023 09:06:52 Final Performing Location LABORATORY [facility] - [facility] [address]. [facility] [place] [address]
--- OUTSIDE RECORDS SUMMARY | 2023-06-01 04:11 | External Medical Summary | Summary of Care ---
Author Name Unknown Organization [facility] Address [address] [place] [address] Phone [phone] Care Team Providers Care Mold Breaker Name Role Phone Galdino Andujar DO Primary Care Provider [phone] Reason for Visit * Reason Comments Dosage Adjustment In Person (Anticoag Cl inic) Medication Management Encounter Details Date Type Department Care Team Description 03/17/2023 Pharmacy Family Practice [facility] [address] [place] [address] [place], Pharmacist [address] [address] Encounter for long-term (current) use of medications* Allergies Active Allergy Reactions Severity Noted Date [...] as of this encounter (statuses as of 03/17/2023) Medications Medication Sig Dispensed Refills Start Date End Date Status ONETOUCH ZULAY LANCETS 33G MISC Check blood sugars 3-4 times daily 180 Each 5 08/01/2018 Active oxygen GASIndications:ELISSA (obstructive sleep apnea) Use 3 L/min(Oxygen) as directed continuous. 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:Chr onic diastolic congestive heart failure (HCC) If no improvement on day 3, contact heart failure managing provider. 1 Each 0 04/08/2020 Active Blood Glucose Monitoring Suppl (OurStageTOUCH ULTRA 2) w/Device KIT Use to test BG values 1 Kit 0 05/20/2020 Active Acetaminophen 500 MG Oral Tablet Take 1 Tablet by mouth every 6 hours as needed. 0 Active CPAP every night at bedtime. [...] hemoglobin A1c goal of 7.0%-8.0% ([facility]) Inject 40-45 units with meals + sliding scale 1 units for every 25 units BG > 150. 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 0 03/17/20 Discontinu ed(End of Procedure) DULoxetine HCl 60 MG Oral Capsule Delayed Release Particles (Cymbalta) Take 1 Capsule by mouth in the morning. Take with 30 mg to = 90 mg. 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/31/2021 Atherosclerosis of [place] coronary arter 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 12/31/2021 [...] Plan: Continue tramadol Abnormality of gait 02/02/[address] 08/19/2014 History of pulmonary [...] as of this encounter (statuses as of 03/17/2023) Resolved Problems Problem Noted Date Resolved Date [...] as of this encounter (statuses as of 03/17/2023) Immunizations Name Administration Dates Next Due COVID-19 mRNA, LNP-s, No Pre serve, 2-Dose Series ([employer]) 01/08/2021,12/18/2020 COVID-19, LNP-s, No Preserve , Navarro-sucrose, Ages 12+ (Pfizer) 2022,10/01/2021 Pneumococcal Conjugate Vacci ne, 20-valent ([id number]) 03/12/2022 Pneumococcal Polysaccharide PPV23 (Pneumovax) 08/22/2009,06/15/2006 Seasonal [...] of this encounter Progress Notes * Frances Oakesmonique Henny Ad, [facility] - 03/17/2023 11:08 AM EDT Medication Therapy [facility] - Medication Reconciliation Stephanie Camp is an 67 year old being seen for medication reconciliation after hospitalization at [facility]. Prescription insurance information: LEXIE Pino Do you have any other prescription coverage: Yes, secure Medicaid Preferred pharmacy: [facility] ([facility]ill [facility]) [] Problem list reviewed [] Allergies reviewed and updated if needed [] Drug interaction check completed [] HEDIS list addressed Immunizations: Up to Date Date of Hospital Admission/Primary Diagnosis: 03/05 - [facility] - pain, difficulty ambulating Date of Discharge from Hospital: 03/07 - denied SNF admission Medication changes during admission/on discharge: Added: Keflex course 4x / day once more for leg infection (completed) Modified: Increased gabapentin to 600 TID, baclofen 10mg BID prn and cymbalta 90mg daily (but they only sent a 60mg script) Discontinued: none Does the patient currently have all of their medications in their home?: No - cymbalta 90 wasn't sent due to renal function. Does patient have any troubles obtaining medications?: No Medication Organization/Adherence: Has home care nurse or caregiver: no Patient uses a pill box? Yes, refill(s) completed by pharmacist When you are at home, how often do you miss doses of medications? Never How difficult is it for you to pay for your medications? Not difficult at all How often do you experience side effects from your medications? unknown Labs/Vitals/Risk Scores: The ASCVD Risk score (Marylu DK, et al., 2019) failed to calculate for the following reasons: The patient has a prior RI or stroke diagnosis BP Readings from Last 3 Encounters: 03/17/23 120/68 03/12/23 120/64 03/01/23 122/60 Recent Labs Units 03/05/23 0000 02/11/23 1131 11/01/22 1413 HEMOGLOBIN A1C - [facility] % -- 7.7* 6.9* HEMOGLOBIN, [id number] LAB 7.1 -- -- Recent Labs Units 12/08/22 1515 11/01/22 1413 09/13/22 1410 ESTIMATED GLOMERULAR FILTRATION RATE - [facility] mL/min 33* 35* 38* Serum creatinine: 1.7 mg/dL (H) 12/08/22 1515 Estimated creatinine clearance: 46.1 mL/min (A) Assessment & Plan: Medication discrepancies identified: updated with hospital discharge and current meds. Dose/frequency of medications appropriate for current renal function? no; gabapentin dose is high for renal function - discussed with PCP and patient. repeating BMP today. Other medication problems identified: uncontrolled pain/depression and not sleeping - pcp trying tostart sertraline and cross taper duloxetine as she's not sure its helping her pain. Patient education provided: regarding Dexcom G7 CGM and new order sent to [facility] due to issues with Dexcom G6 transmitters with [facility]. Referral pended for follow up management of: N/A Summary- Changes & Recommendations: Med rec completed with patient. Repeat med rec visit in 1 year Frances Huerta luis Clinical Pharmacist - Senior Actuarial Analyst Medication Therapy Management [facility] 03/17/2023, 11:08 AM documented in this encounter Plan of Treatment Upcoming Encounters Date Type Specialty Care Team Description 03/18/2023 Telemedicine [facility] Lucia Garcia CRNP [address] [place] [address] Gabriel, Jessica, Community Health Director Of Human Resources [address] [place] [address] [place] [address] 03/23/2023 Home Visit [facility] Brooke Jose RN [address] [place] [address] 03/30/2023 Hospital Encounter Surgery Raj Ahn, DO [address] [place] [address] 03/30/2023 Surgery Surgery Raj Ahn, DO [address] [place] [address] INJECTION SACROILIAC JOINT 04/06/2023 Home Visit [facility] Brooke Jose RN [address] [place] [address] 04/07/2023 Office Visit Family Medicine Galdino Andujar, [address] [facility] [place] [address] 04/21/2023 Office Visit Orthopedics Zack Teague, [address] [place] [address] 04/29/2023 Home Visit [facility] Simi Martinez PA-C [address] [place] [address] 05/16/2023 Office Visit Family Medicine Galdino Andujar, [address] [facility] [place] [address] 08/08/2023 Nurse Only Ancillary [place], Nurse Annual Wellness Visit [address] [facility] [address] [facility] [place] [address] Scheduled Procedures Name Priority Associated Diagnoses Date/Ti [...] 05/24/2023 05/24/2022, , 04/07/2020, Additional history exists GFR 06/10/2023 12/08/2022, 0 02/2023, 09/13/2022, Additional history exists HbA1c 09/04/2023 03/05/2023, 01/24, 11/01/2022, Additional history exists Albumin/Creatinine Ratio 11/01/2023 023, 01/07/2022, 05/24/2019, Additional history exists CKD HGB USE SMARTSET 30643 11/01/202311/01, 11/01/2022, 06/29/2022, Additional history exists DIABETES-FOOT EXAM 11/01/2023 11/01/2022, 0 01/07/2022, 01/14/2021, Additional history exists TSH 11/01/2023 11/01/2022, 12/25, 12/25/2020, Additional history exists CKD PHOS USE SMARTSET 44835 02/12/202401/24, 01/07/2022, 03/12/2021, Additional history exists Depression Screening, Annual for Pts 12 and Over 02/12/2024 03/17/2023, 06/12/2018 Colonoscopy 02/17/2026 02/18/2016, 01/25, 01/28/2006, [...] Procedure Name Priority Date/Time Associated Diagnosis Comments HEMOGLOBIN A1C Routine 03/05/2023 documented in this encounter Results * HEMOGLOBIN A1C (03/05/2023) HEMOGLOBIN, [id number] LAB 7.1 Blood Venous blood specimen / Unknown 03/05/2023 History Per Patient LAB BLOOD ORDERABLES documented in this encounter Visit Diagnoses Diagnosis Encounter for long-term (current) use of medications- Primary Encounter for long-term (current) use of other medications Inflammation of sacroiliac joint (HCC) Sacroiliitis, not elsewhere classified documented in this encounter Advance Directives Documents on File Type Date Recorded Patient Postal Service Mail Processor Expl anation POLST 03/19/2020 4:25 PM POLST [...] the patient have Health Care Power of Electronics Supervisor? No Healthcare Agents on File Name Relationship Healthcare Agent Relationship Communication Galdino Camp Other - (no specific identity) Health Care Power of Electronics Supervisor Princess Allen Other - (no specific identity) Health Care Power of Electronics Supervisor Care Teams Mold Breaker Relationship Specialty Start Date End Date Galdino Andujar, DO [address] [place] [address] PCP - General Internal Medicine 01/07/22 documented as of this encounter
--- OUTSIDE RECORDS SUMMARY | 2023-06-01 04:11 | External Medical Summary | Summary of Care ---
Author Name Unknown Organization [facility] Address [address] [place] [address] Phone [phone] Care Team Providers Care Auto Damage Trainee Name Role Phone Galdino Andujar DO Primary Care Provider [phone] Reason for Visit * Reason Comments Dosage Adjustment In Person (Anticoag Cl inic) Diabetes Follow-Up Encounter Details Date Type Department Care Team Description 03/17/2023 Office Visit Family Practice [facility], [place] [address] [place] [address] College, Pharmacist [address] [address] Type 2 diabetes mellitus with [...] directed continuous. 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:Body Shop Technician 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 1 Each 0 04/08/2020 Active Blood Glucose Monitoring Suppl (CosmotouristTOUCH ULTRA 2) w/Device KIT Use to test [...] hemoglobin A1c goal of 7.0%-8.0% ([facility]) Inject 40-45 units with meals + sliding scale 1 units for every 25 units BG > 150. 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, NYHA class 1 and CKD stage 3 ([facility]),Chronic diastolic congestive heart failure (HCC) TAKE 1 [...] AT BEDTIME 60 Tablet 0 03/16/2023 Active Hospital, Clinic, or Other Facility Administered Medication Ordered Dose Route Frequency Start Date End Date Status Albuterol Sulfate (Proventil) (2.5 MG/3ML) 0.083% inhalation solution 2.5 mgIndications:Chronic hypoxemic respiratory failure (HCC),SOB (shortness of breath),Small airways disease,ILD (interstitial lung disease) ([facility]) 2.5 mg NEBULIZER PRN 01/07/2023 01/07/2024 Active Albuterol Sulfate (Proventil) (5 MG/ML) 0.5% *conc* inhalation solution 2.5 mgIndications:Chronic hypoxemic respiratory failure (HCC),SOB (shortness of breath),Small airways disease,ILD (interstitial lung disease) ([facility]) 2.5 mg NEBULIZER PRN 01/07/2023 01/07/2024 Active [...] 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/31/2021 Atherosclerosis of [place] coronary arter 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 12/31/2021 [...] Plan: Continue tramadol Abnormality of gait 02/02/[address] 08/19/2014 History of pulmonary [...] mRNA, LNP-s, No Pre serve, 2-Dose Series ([employer]) 01/08/2021,12/18/2020 COVID-19, LNP-s, No Preserve , Navarro-sucrose, Ages 12+ (Pfizer) 2022,10/01/2021 Pneumococcal Conjugate Vacci ne, 20-valent ([id number]) 03/12/2022 Pneumococcal Polysaccharide PPV23 (Pneumovax) 08/22/2009,06/15/2006 Seasonal [...] of this encounter Progress Notes * Frances Duong, [facility] - 03/17/2023 3:29 PM EDT Medication Therapy Disease Management Clinic - Diabetes Management Progress Note Stephanie Camp, identified by name and date of , is a 67 year old female being seen for diabetes management/education. Patient presents for return diabetic visit. DIABETES: Current diabetic medications: Novolog- 40 units withbreakfast, 40unitslunch and 45 units with supper+ SS 1:25 >150 before meals [id number] Trulicity 4.5 mg weekly- Metformin ER 500 mg 1 tablet daily [id number]/min12/08/22 Medication Injection Site: Abdomen Lifestyle: Diet: unchanged Glucose Review/SMBG: no BGs today - hasn't had dexcom in over a month due to [employer] shipping 2 orders of sensors instead of 1 order of transmitter Hypoglycemia: Does your blood sugar go below 70 mg/dL? No Hyperglycemia symptoms present: none Recent Labs Units 03/05/23 0000 02/11/23 1131 11/01/22 1413 HEMOGLOBIN A1C - [facility] % -- 7.7* 6.9* HEMOGLOBIN, [id number] LAB 7.1 -- -- Recent Labs Units 12/08/22 1515 11/01/22 1413 09/13/22 1410 ESTIMATED GLOMERULAR FILTRATION RATE - [facility] mL/min 33* 35* 38* CREATININE - [facility] mg/dL 1.7* 1.6* 1.5* HYPERTENSION: Patient on ACEi/ARB: no, not indicated BP Readings from Last 3 Encounters: 03/17/23 120/68 03/12/23 120/64 03/01/23 122/60 Blood pressure at goal: yes HYPERLIPIDEMIA: Patient is taking moderate or high intensity statin: No Current regimen: statin intolerant Goal statin intensity: high The ASCVD Risk score (Marylu FRANK, et al., 2019) failed to calculate for the following reasons: The patient has a prior DE or stroke diagnosis Recent Labs Units 07/02/22 1511 LDL CHOLESTEROL (CALCULATED) - [facility] mg/dL 120 HEALTH MAINTENANCE REVIEW: Health Maintenance Due Topic Date Due COVID-19 Vaccine (5 - Pfizer series) 06/08/2022 Mammogram 02/11/2023 ASSESSMENT & PLAN: No diagnosis found. BG Readings - Blood sugars not available. Dexcom G7 placed today in clinic and submitted paperwork with [employer] with request to switch suppliers. Medications - Reviewed current regimen, patient is adherent to regimen. Diet, Exercise, Lifestyle - No significant lifestyle changes since last visit. Patient is agreeable to SMBG with Dexcom G7 CGM. Patient aware to contact clinic if any hypoglycemia before next visit. MEDICATION CHANGES: no change Diabetic Medications: Novolog- 40 units withbreakfast, 40unitslunch and 45 units with supper+ SS 1:25 >150 before meals [id number] Trulicity 4.5 mg weekly- Metformin ER 500 mg 1 tablet daily [id number]/min12/08/22 HEALTH MAINTENANCE INTERVENTIONS: Labs: Up to Date Immunizations: Up to Date Foot Exam: Up to Date Eye Exam: Up to Date Annual Wellness Visit: Up to Date FOLLOW UP: Return to clinic in 3 weeks 04/07/2023 Frances Huerta RPh Clinical Pharmacist - Cement Finishing Supervisor Medication Therapy Management Clinic 03/17/2023, 3:29 PM Dexcom G7: Patient Education and Review Patient provided G7 CGM components and training manual. Reviewed the following information with patient using provided soldering machine setter literature: Introduced CGM and components How to set up display device Follow the onscreen instructions on poultry farmer egg or appt to enter: o Low and high alerts o Sensor code Insert sensor and attach transmitter o Choose sensor site o Insert sensor with applicator o Place sensor cover over sensor Pair transmitter and start sensor o Wait for transmitter to pair - No readings during the 30-min warmup - Keep display device within 20 feet during warmup Home screen overview o Review home screen overview in using your G7 with patient o Home screen shows - Sensor glucose readings - Trend arrow - Trend graph - High and low alerts Treatment decisions o Review treatment decisions in using your G7 with patient o Use your meter if: - Your G7 readings don't match your symptoms - Your G7 doesn't show both a number and an arrow Ending Sensor Session o Review ending your sensor session in using your G7 with patient - Remover sensor + overpatch from body - Discard sensor Patient set up personal device and self-inserted sensor and transmitter in office independently of pharmacist involvement other than for material review and support. documented in this encounter Plan of Treatment Upcoming Encounters Date Type Specialty Care Team Description 03/18/2023 Telemedicine [facility] Lucia Garcia CRNP [address] [place] [address] Jessica Rios, [address] [place] [address] 03/23/2023 Home Visit [facility] Brooke Jose, RN [address] [place] [address] 03/30/2023 Hospital Encounter Surgery Raj Ahn, [address] [place] [address] 03/30/2023 Surgery Surgery Raj Ahn, [address] [place] [address] INJECTION SACROILIAC JOINT 04/06/2023 Home Visit [facility] Brooke Jose RN [address] [place] [address] 04/07/2023 Office Visit Family Medicine Galdino Andujar, [address] [place] [place] [address] 04/21/2023 Office Visit Orthopedics Zack Teague, [address] [place] [address] 04/29/2023 Home Visit [facility] Simi Martinez PA-C [address] [place] [address] 05/16/2023 Office Visit Family Medicine Galdino Andujar, DO [address] [place] [address] 08/08/2023 Nurse Only [employer]illary [employer], Nurse Annual Wellness Visit [address] [facility] [address] Scheduled Procedures Name Priority Associated Diagnoses Date/Ti [...] 01/24, 11/01/2022, Additional history exists Albumin/Creatinine Ratio 11/01/20232 023, 01/07/2022, 05/24/2019, Additional history exists CKD HGB USE SMARTSET 55200 11/01/202311/01, 11/01/2022, 06/29/2022, Additional history exists DIABETES-FOOT EXAM 11/01/2023 11/01/2022, 0 01/07/2022, 01/14/2021, Additional history exists TSH 11/01/2023 11/01/2022, 12/25, 12/25/2020, Additional history exists CKD PHOS USE SMARTSET 62502 02/12/202401/24, 01/07/2022, 03/12/2021, Additional history exists Depression [...] long-term current use of insulin (HCC)- Primary Inflammation of sacroiliac joint (HCC) Sacroiliitis, not elsewhere classified documented in this encounter Advance Directives Documents on File Type Date Recorded Patient Special Education Paraeducator Expl anation POLST 03/19/2020 4:25 PM POLST [...] the patient have Health Care Power of Stem Assembler? No Healthcare Agents on File Name Relationship Healthcare Agent Relationship Communication Galdino Camp Other - (no specific identity) Health Care Power of Stem Assembler Princess Allen Other - (no specific identity) Health Care Power of Stem Assembler Care Teams Auto Damage Trainee Relationship Specialty Start Date End Date Galdino Andujar, DO [address] [place] [address] PCP - General Internal Medicine 01/07/22 documented as of this encounter
--- OUTSIDE RECORDS SUMMARY | 2023-06-01 04:11 | External Medical Summary | Summary of Care ---
Author Name Unknown Organization [facility] Address [address] [place] [address] Phone [phone] Care Team Providers Care Boiler Control Technician Name Role Phone Lexii Andujar DO Primary Care Provider Reason for Visit * Reason Onset Date Comments Information 03/14/2023 Encounter Details Date Type Department Care Team Description 03/14/2023 Refill Family Practice [address] [place] [address] [place] [address] Lexii Andujar DO [address] [place] [address] Fibromyalgia; Type 2 diabetes mellitus with hemoglobin A1c goal of 7.0%-8.0% ([facility]) Allergies Active Allergy Reactions Severity Noted Date [...] as of this encounter (statuses as of 03/15/2023) Medications Medication Sig Dispensed Refills Start Date End Date Status DEMIAN DELFRANTZ LANCETS 33G MISC Check blood sugars 3-4 times daily 180 Each 5 8 Active oxygen GASIndications:ELISSA (obstructive sleep apnea) Use 3 L/min(Oxygen) as directed continuous. 0 0 Active DIURETIC TITRATION PLANIndications:Ch ronic diastolic congestive heart failure (HCC) If no improvement on day 3, contact heart failure managing provider. 1 Each 0 0 Active Blood Glucose Monitoring Suppl (MarkerlyTOUCH ULTRA 2) w/Device KIT Use to test BG values 1 Kit 0 0 Active Acetaminophen 500 MG Oral Tablet Take [...] hemoglobin A1c goal of less than 8.0% ([facility]) Take 1 Tablet (500 mg) by mouth in the morning. 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 60 Tablet 5 2 Active rOPINIRole HCl 2 [...] mellitus with hemoglobin A1c goal of 7.0%-8.0% ([facility]) Inject 40-45 units with meals + sliding scale 1 units for every 25 units BG > 150. 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 0 Active Cephalexin 500 MG Oral Capsule Take 1 Capsule by mouth in the morning and 1 Capsule at noon and 1 Capsule in the evening and 1 Capsule before bedtime. 0 Active DULoxetine HCl 60 MG Oral Capsule Delayed Release Particles (Cymbalta) Take 1 Capsule by mouth in the morning. Take with 30 mg to = 90 mg. 30 Capsule 5 3 Active Gabapentin 300 MG Oral Capsule (Neurontin)Indicat ions:Fibromyalgia Take 2 Capsules by mouth in the morning and 2 Capsules at noon and 2 Capsules before bedtime. 120 Capsule 5 3 Active Tresiba FlexTouch 100 UNIT/ML Subcutaneous Solution Pen-injector (Insulin Degludec)Indicatio ns:Type 2 diabetes mellitus with hemoglobin A1c goal of 7.0%-8.0% ([facility]) INJECT 58 UNITS UNDER THE SKIN IN THE EVENING 60 mL 3 3 Active Tresiba FlexTouch 100 UNIT/ML Subcutaneous Solution Pen-injector (Insulin Degludec)Indicatio ns:Type 2 diabetes mellitus with hemoglobin A1c goal of 7.0%-8.0% ([facility]) INJECT 60 UNITS UNDER THE SKIN EVERY MORNING 60 mL 3 2 023 Discontinued DULoxetine HCl 60 MG Oral Capsule Delayed Release Particles (Cymbalta)Indicati ons:Fibromyalgia,M oderate episode of recurrent major depressive disorder (HCC),Primary osteoarthritis of both knees Take 1 Capsule (60 mg) by mouth in the morning. Take 1 capsule daily. 30 Capsule 5 2 023 Discontinued(Jaun witt preference/disc ontinuation) Gabapentin 300 MG Oral Capsule (Neurontin)Indicat ions:Fibromyalgia Take 1 Capsule by mouth in the morning and 1 Capsule at noon and 1 Capsule before bedtime. 90 Capsule 5 3 023 Discontinued DULoxetine HCl 60 MG Oral Capsule Delayed Release Particles (Cymbalta) Take 90 mg by mouth in the morning. 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/31/2021 Atherosclerosis of [place] coronary arter 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 [...] as of this encounter (statuses as of 03/15/2023) Resolved Problems Problem Noted Date Resolved Date [...] inactive term Primary localized osteoarthrosis, lower leg 05/20082020 Dyslipidemia, goal LDL below 160 08/16/2007 09/04/2009 [...] as of this encounter (statuses as of 03/15/2023) Immunizations Name Administration Dates Next Due COVID-19 mRNA, LNP-s, No Pre serve, 2-Dose Series ([employer]) 01/08/2021,12/18/2020 COVID-19, LNP-s, No Preserve , Navarro-sucrose, Ages 12+ (Pfizer) 2022,10/01/2021 Pneumococcal Conjugate Vacci ne, 20-valent ([id number]) 03/12/2022 Pneumococcal Polysaccharide PPV23 (Pneumovax) 08/22/2009,06/15/2006 Seasonal [...] before you got money to buy more. Sometimes true 2022 Within the past 12 months, t he food you bought just didn't last and you didn't have money to get more. Sometimes true Sex Assigned at Date Recorded Female 11/07/2019 2:[address] Job Start Date Occupation Industry Not on file Not on file Not on file documented as of this encounter Miscellaneous Notes * Telephone Encounter - Shira Gross LPN - 03/15/2023 5:09 PM EDT Patient is aware and will comply. Thank you * Telephone Encounter - Lexii Andujar DO - 03/15/2023 3:43 PM EDTSigned Prescriptions: Disp Refills DULoxetine HCl 60 MG Oral Capsule Delayed *30 Cap*5 Sig: Take 1 Capsule by mouth in the morning. Take with 30 mg to = 90 mg. Authorizing Provider: LEXII ANDUJAR Gabapentin 300 MG Oral Capsule (Neurontin) 120 Ca*5 Sig: Take 2 Capsules by mouth in the morning and 2 Capsules at noon and 2 Capsules before bedtime. Authoriz ing Provider: LEXII ANDUJAR Tresiba FlexTouch 100 UNIT/ML Subcutaneous*60 mL 3 Sig: INJECT 58 UNITS UNDER THE SKIN IN THE EVENING Authorizing Provider: LEXII ANDUJAR * Telephone Encounter - Lexii Andujar DO - 03/15/2023 3:42 PM EDT Would not go above Duloxetine 60 mg daily due to CKD * Telephone Encounter - Shira Gross LPN - 03/14/2023 3:19 PM EDT Medication reviewed and patient is needing new doses of what was prescribed at hospital. Thank you documented in this encounter Plan of Treatment Upcoming Encounters Date Type Specialty Care Team Description 03/16/2023 Imaging Radiology 03/17/2023 Pharmacy [facility], Pharmacist [address] [facility] [address] [place] [address] 03/17/2023 Office Visit Family Medicine Lexii Andujar DO [address] [place] [address] 03/18/2023 Telemedicine [facility] Lucia Garcia CRNP [address] [place] [address] Jessica Rios, Community Health Real Estate Officer [address] [place] [address] [place] [id number] 03/23/2023 Home Visit [facility] Brooke Jose RN [address] [place] [address] 03/30/2023 Hospital Encounter Surgery Raj Anh, DO [address] [place] [address] 03/30/2023 Surgery Surgery Raj Ahn, DO [address] [place] [address] INJECTION SACROILIAC JOINT 04/06/2023 Home Visit [facility] Brooke Jose RN [address] [place] [address] 04/21/2023 Office Visit Orthopedics Zack Teague, DO [address] [place] [address] 04/29/2023 Home Visit [facility] Simi Martinez PA-C [address] [place] [address] 05/16/2023 Office Visit Family Medicine Lexii Andujar, DO [address] [place] [address] 08/08/2023 Nurse Only Ancillary College, Nurse Annual Wellness Visit [address] [facility] [address] [facility] [place] [address] Scheduled Procedures Name Priority Associated Diagnoses Date/Ti [...] 04/07/2020, Additional history exists GFR 06/10/2023 12/08/2022, 02/0 02/2023, 09/13/2022, Additional history exists HbA1c 08/14/2023 02/11/2023, 02/0 02/2023, 05/12/2022, Additional history exists Albumin/Creatinine Ratio 11/01/2023 023, 01/07/2022, 05/24/2019, Additional history exists CKD HGB USE SMARTSET 98562 11/01/202311/01, 11/01/2022, 06/29/2022, Additional history exists DIABETES-FOOT EXAM 11/01/2023 11/01/2022, 0 01/07/2022, 01/14/2021, Additional history exists TSH 11/01/2023 11/01/2022, 12/25, 12/25/2020, Additional history exists CKD PHOS USE SMARTSET 64956 02/12/202401/24, 01/07/2022, 03/12/2021, Additional history exists Depression Screening, Annual for Pts 12 and Over 02/12/2024 02/11/2023, 06/12/2018 Colonoscopy 02/17/2026 02/18/2016, 01/25, 01/28/2006, Additional [...] Diagnoses Diagnosis Fibromyalgia Mylagia and myositis, unspecified Type 2 diabetes mellitus with hemoglobin A1c goal of 7.0%-8.0% (HCC) Inflammation of sacroiliac joint (HCC) Sacroiliitis, not elsewhere classified documented in this encounter Advance Directives Documents on File Type Date Recorded Patient Wood Window And Door Craftsman Expl anation POLST 03/19/2020 4:25 PM POLST [...] the patient have Health Care Power of Surgical Instrument Repair Specialist? No Healthcare Agents on File Name Relationship Healthcare Agent Relationship Communication Lexii Camp Other - (no specific identity) Health Care Power of Surgical Instrument Repair Specialist Princesseugene Allen Other - (no specific identity) Health Care Power of Surgical Instrument Repair Specialist Care Teams Boiler Control Technician Relationship Specialty Start Date End Date Lexii Andujar, DO [address] [place] [address] PCP - General Internal Medicine 01/07/22 documented as of this encounter
--- OUTSIDE RECORDS SUMMARY | 2023-06-01 04:11 | External Medical Summary ---
Author Name Unknown Address Unknown Organization K01:[facility] [place] [address] [place] [address] [place] [address] Laboratory Report Ordering Provider Test Date Status JAG SHULTZ 03/17/2023 12:37:18 Final Observation Date Value Abnormality Reference (Units ) Status CRP, low-sensitivity 03/17/2023 12:37:18 15 Above high normal <=5 (mg/L) Final Performing Location [facility] - [address] [place] [address]
--- OUTSIDE RECORDS SUMMARY | 2023-06-01 04:11 | External Medical Summary | Summary of Care ---
Author Name Unknown Organization [facility] Address [address] [place] [address] Phone [phone] Care Team Providers Care Manager Commodities Name Role Phone Galdino Andujar DO Primary Care Provider Reason for Visit * Reason Onset Date Comments Hospital Follow-Up Hospital Follow-Up 03/17/2023 Encounter Details Date Type Department Care Team Description 03/17/2023 Office Visit Family Practice [facility] [place] [address] [place] [phone] Galdino Andujar DO [address] [place], [place] [id number] Other chronic pain*; Spinal stenosis of lumbar region without neurogenic claudication; Fibromyalgia; Moderate episode of recurrent major depressive disorder ([facility]); 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 3b chronic kidney disease ([facility]); Type 2 diabetes mellitus with stage 3b chronic kidney disease, with long-term current use of insulin ([facility]); Morbid obesity with BMI of 50.0-59.9, adult ([facility]); ILD (interstitial lung disease) ([facility]); Chronic hypoxemic respiratory failure ([facility]); Dyslipidemia; Postsurgical hypothyroidism; History of pulmonary embolus (PE); Elwood filter in place; Abnormality of gait; Restless legs syndrome; Gastroesophageal reflux disease with esophagitis without hemorrhage; Atherosclerosis of mary's igloo coronary artery of mary's igloo heart without angina pectoris; Primary osteoarthritis of both knees; Anxiety state; Hyperparathyroidism, secondary renal (HCC); Hospital discharge follow-up Allergies Active Allergy Reactions Severity Noted Date [...] 0 11/28/2019 Active Blood Glucose Monitoring Suppl (ONETOUCH ULTRA 2) [...] goal of 7.0%-8.0% ([facility]) Inject 40-45 units with meals + sliding scale 1 units for every 25 units BG > 150. 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, NYHA class 1 and CKD stage 3 ([facility]),Chronic diastolic congestive heart failure (HCC) TAKE [...] or chew. 30 Capsule 5 03/18/2023 Active DIURETIC TITRATION PLANIndications:Chr onic diastolic congestive heart failure (HCC) If no improvement on day 3, contact heart failure managing provider. 1 Each 0 04/08/2020 03/18/20 Discontinu ed(Medicat ion List Clean Up) Acetaminophen 500 MG Oral Tablet Take 1 Tablet by mouth every 6 hours as needed. 0 03/18/20 Discontinu ed(Medicat ion/Dose Changed) Cephalexin 500 MG Oral Capsule Take 1 [...] to = 90 mg. 30 Capsule 5 03/15/2023 03/17/20 Discontinu ed(Medicat ion/Dose Changed) Hospital, [...] Noted Date Food insecurity 03/07/2023 Overview: Per [facility] Protocol Type 2 diabetes mellitus wit [...] 22 Last Assessment & Plan: Followed by freddy [...] 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/31/2021 Atherosclerosis of mary's igloo coronary arter 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 12/31/2021 [...] Plan: Continue tramadol Abnormality of gait 02/02/[address] 08/19/2014 History of pulmonary [...] mRNA, LNP-s, No Pre serve, 2-Dose Series ([employer]) 01/08/2021,12/18/2020 COVID-19, LNP-s, No Preserve , Navarro-sucrose, Ages 12+ (Pfizer) 2022,10/01/2021 Pneumococcal Conjugate Vacci ne, 20-valent ([id number]) 03/12/2022 Pneumococcal Polysaccharide PPV23 (Pneumovax) 08/22/2009,06/15/2006 Seasonal [...] Sign Reading Time Taken Comments Blood Pressure 120/68 03/17/2023 11:11 AM EDT Pulse 88 03/17/2023 11:11 AM EDT Temperature 36.4 C (97.6 F) 03/17/2023 1 1:11 AM EDT Respiratory Rate 16 03/17/2023 11:1 1 AM EDT Oxygen Saturation 93% 03/17/2023 11: 11 AM EDT 2 lpm Inhaled Oxygen Concentration - - Weight 141.9 kg (312 lb 12.8 oz) 2022 11:11 AM EDT Height 165.1 cm (5' 5") 03/17/2023 11:1 1 AM EDT Body Mass Index 52.05 03/17/2023 11:11 AM EDT documented in this encounter Patient Instructions * Patient Instructions* Shira Gross, MID TEACHER - 03/17/2023 11:08 AM EDT Patient Instructions - Fall Prevention (This education is for all patients over 65 regardless of symptoms) Remember to take your current medications as prescribed. In order to prevent falls, you are encouraged to: Exercise Utilize assistive/adaptive devices Avoid multifocal lenses when walking Avoid hazards in home Maintain a regular toileting schedule Any questions please contact our office. Preventing Falls in the Home (This education is for all patients over 65 regardless of symptoms) As you get older, falls are more likely. Thats because your reaction time slows. Your muscles and joints may also get stiffer, making them less flexible. Illness, medications, and vision changes can also affect your balance. A fall could leave you unable to live on your own. To make your home safer, follow these tips: Floors Put nonskid pads under area rugs Remove throw rugs Replace worn floor coverings Tack carpets firmly to each step on carpeted stairs. Put nonskid strips on the edges of uncarpeted stairs Keep floors and stairs free of clutter and cords Arrange furniture so there are clear pathways Clean up any spills right away Bathrooms Install grab bars in the tub or shower Apply nonskid strips or put a nonskid rubber mat in the tub or shower Sit on a bath chair to bathe Use bathmats with nonskid backing Lighting Keep a flashlight in each room Put a nightlight along the pathway between the bedroom and the bathroom [employer] Patient Education Copyright 2008 - 2010 [employer] except where otherwise noted Preventing Falls: Exercises to Improve Balance, Flexibility, Strength, and Staying Power (This education is for all patients over 65 regardless of symptoms) Certain types of exercises may help make you less likely to fall. Try the ones below. Or do other exercises that your healthcare provider suggests. Depending on your health, you may need to start slowly. Dont let that stop you. Even small amounts of exercise can help you. Be sure to talk to yourhealthcare provider before starting any exercise program. Improve Balance Many types of exercise can help improve balance. Timmy chi and yoga are good examples. Heres another one to try. You can do it anytime and almost anywhere. Stand next to a counter or solid support. Push yourself up onto your tiptoes. Hold for 5 seconds. If you start to lose your balance, hold on to the counter. Rest and repeat 5 times. Work up to holding for 20 to 30 seconds, if you can. Increase Flexibility Being more flexible makes it easier for you to move around safely. Try exercises like the seated hamstring stretch. Sit in a chair and put one foot on a stool. Straighten your leg and reach with both hands down either side of your leg. Reach as far down your leg as you can. Hold for about 20 seconds. Go back to the starting position. Then repeat 5 times. Switch legs. Build Strength Resistance exercises help build strength. You can do them without equipment. Or you can use weights, elastic bands, or special machines. One such exercise is called the biceps curl. You can hold a 1 pound weight or even a can of soup. Do this exercise at least 3 times a week. Strive for everyday. Sit up straight in a chair. Keep your elbow close to your body and your wrist straight. Bend your arm, moving your hand up to your shoulder. Then slowly lower your arm. Repeat 5 times. Switch to the other arm. Build Your Staying Power Aerobic exercises make your heart and lungs stronger so you can keep moving longer. Walking and swimming are two of the best types of exercises you can do. Using a stationary bike is great, too. Find an aerobic exercise that you enjoy. Start slowly and build up. Even 5 minutes is helpful. Aimfor a goal of 30 minutes, at least 3 times a week. You dont have to do 30 minutes in one session. Break it up and walk a little throughout the day. More Helpful Tips Start easy. Slowly work up to doing more. Talk with your healthcare provider about the best exercises for you. Call senior centers or health clubs about exercise programs. If needed, have a family member watch you walk every so often to check your stability. Exercise with a friend. Choose an activity you both enjoy. Try exercises that you can do anytime, anywhere. Here are two examples. Have someone with you when you first try these: Practice walking by placing one foot right in front of the other. Stand up and sit down 10 times. Repeat this throughout the day. [employer] Patient Education Copyright 2009 - 2010 [employer] except where otherwise noted. Preventing Falls: Moving Safely Using a Cane or Walker (This education is for all patients over 65 regardless of symptoms) Keep the cane away from your feet so you dont trip. A walking aid, such as a cane or walker, can help you stay more independent and avoid falls. Remember to keep your walking aid within easy reach when youre in a chair or in bed. And learn how to use it safely so you dont injure yourself. Using a Cane If you have a stronger side, hold the cane on that side. 17. Get your balance. 18. Move the cane and your weaker leg forward. 19. Support your weight on both the cane and your weaker side. 20. Step with your stronger leg. 21. Start again from step 1. If youre using a folding walker, be sure you know how to lock it open. Check that its locked open before each use. Using a Walker 7. Roll the walker (or lift it, if youre using one without wheels) forward about 12 inches. 8. Step forward with your weaker leg first. 9. Use the walker to help keep your balance. 10. Bring your other foot forward to the center of the walker. 11. Start again from step 1. Helpful Tips Check with your healthcare provider about the right walking aid to use. Ask about a walker with a seat attached. Check the tips of your cane or walker to make sure they have nonskid covers. Move slowly from room to room. Dont mayfield. Sit down to get dressed. Use a ubaldo pack or backpack to keep your hands free. Get help for jobs that mean climbing, even on a stepstool. [employer] Patient Education Copyright 2008 [employer] except where otherwise noted. documented in this encounter Progress Notes * Galdino Andujar DO - 03/17/2023 12:19 PM EDT SUBJECTIVE: Stephanie Camp is a 67 year old female. Chief Complaint Patient presents with Hospital Follow-Up Hospital Follow-Up Recent Admission: Patient was recently admitted to [facility]. The date of discharge was 03/11/2023.Discharge report received and reviewed. HPI: Patient is a 67 year old female with a history of DM type II, CKD stage III, diastolic CHF, chronichypoxic respiratory failure, HTN, recurrent DVT, IVC filter, hyperlipidemia, statin intolerance, GERD, lumbar disc disease, restless leg syndrome, sleep apnea on CPAP, heparin induced thrombocytopenia, and ambulatory dysfunction that is seen for hospital follow up. Patient was admitted for worsening pain that is all over her body, ambulatory dysfunction, and worsening depression. Duloxetine and Gabapentin were increased during hospitalization. Pain has not improved. She is scheduled to see painmanagement for possible MICH. Depression has not improved and patient wishes to restart Sertraline since Duloxetine is ineffective. No chest pain is present. Chronic shortness of breath is unchanged. Bilateral leg swelling is stable. Patient Active Problem List Diagnosis Code Dyslipidemia E78.5 Postsurgical hypothyroidism E89.0 ELISSA (obstructive sleep apnea) G47.33 Venous insufficiency I87.2 Essential hypertension with goal blood pressure less than 140/90 I10 History of pulmonary embolus (PE) Z86.711 Statin intolerance Z78.[address] Z95.828 Fibromyalgia M79.7 Abnormality of gait R26.9 Restless legs syndrome G25.81 Gastroesophageal reflux disease with esophagitis K21.00 Morbid obesity with BMI of 50.0-59.9, adult ([facility]) E66.01, Z68.43 Controlled substance agreement signed Z79.899 Chronic diastolic congestive heart failure ([facility]) I50.32 Lumbar radiculopathy M54.16 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 acnvv4b chronic kidney disease ([facility]) I13.0, I50.32, N18.32 Hyperparathyroidism, secondary renal ([facility]) N25.81 Vasculitis ([facility]) I77.6 Primary osteoarthritis of left knee M17.12 Spinal stenosis of lumbar region without neurogenic claudication M48.061 Heparin 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) ([facility]) D75.829 Atherosclerosis of mary[place] ig[place] coronary arter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 I25.10 Carotid artery stenosis, asymptomatic, right I65.21 Encounter for long-term (current) use of other medications Z79.899 Type 2 diabetes mellitus with stage 3b chronic kidney disease ([facility]) E11.22, N18.32 Type 2 diabetes mellitus with hemoglobin A1c goal of less than 8.0% ([facility]) E11.9 Recurrent deep vein thrombosis (DVT) of both lower extremities ([facility]) I82.403 Chronic hypoxemic respiratory failure ([facility]) J96.11 Chronic kidney disease, stage 3b ([facility]) N18.32 ILD (interstitial lung disease) ([facility]) J84.9 Moderate episode of recurrent major depressive disorder ([facility]) F33.1 Primary osteoarthritis of both knees M17.0 Type 2 diabetes mellitus with stage 3b chronic kidney disease, with long- term current use of insulin ([facility]) E11.22, N18.32, Z79.4 Anxiety state F41.1 Sacroiliitis, not elsewhere classified ([facility]) M46.1 Food insecurity Z59.41 Current Outpatient Medications Medication Sig Dispense Refill NewLeaf SymbioticsUCH DELICA LANCETS 33G MISC Check blood sugars 3-4 times daily 180 Each 5 oxygen GAS Use 3 L/min(Oxygen) as directed continuous. DIURETIC TITRATION PLAN If no improvement on day 3, contact heart failure managing provider. 1 Each 0 Blood Glucose Monitoring Suppl ([facility] Home[facility] ULTRA 2) w/Device KIT Use to test BG values 1 Kit 0 Acetaminophen 500 MG Oral Tablet Take 1 Tablet by mouth every 6 hours as needed. CPAP every night at bedtime. BD Pen [...] as needed for Nausea. 90 Tablet 6 Levothyroxine Sodium 200 MCG Oral Tablet (Levoxyl) TAKE ONE TABLET BY MOUTH IN THE MORNING AT LEAST 30 MINUTES PRIOR TO BREAKFAST OR OTHER MEDS 100 Tablet 1 NovoLOG FlexPen 100 UNIT/ML Subcutaneous Solution Pen-injector [...] under the skin weekly 6 mL 1 Senna-Time S 8.6-50 MG Oral Tablet (senna-docusate) [...] MORNING AND AT BEDTIME 84 Tablet 4 Ibuprofen 200 MG Oral Tablet (Motrin) Take 2 Tablets by mouth at bedtime as needed for Pain, Mild or Pain, Moderate. Baclofen 10 MG Oral Tablet (Lioresal) Take 1 Tablet by mouth 2 times a day as needed. DULoxetine HCl 60 MG Oral Capsule Delayed Release Particles (Cymbalta) Take 1 Capsule by mouth in the morning. Take with 30 mg to = 90 mg. 30 Capsule 5 Gabapentin 300 MG Oral Capsule (Neurontin) Take [...] DAILY IN THE MORNING 30 Capsule 3 clonazePAM 0.5 MG Oral Tablet (KlonoPIN) TAKE 1 TABLET BY MOUTH IN THE MORNING AND AT BEDTIME 60 Tablet 0 Current Facility-Administered Medications Medication Dose Route Frequency Provider Last Rate Last Admin Albuterol Sulfate (Proventil) (2.5 MG/3ML) 0.083% inhalation solution 2.5 mg 2.5 mg Nebulizer PRThang Winter PA-C Albuterol Sulfate (Proventil) (5 MG/ML) 0.5% *conc* inhalation solution 2.5 mg 2.5 mg NebulizerPRThang Winter PA-C Current and discharge medications have [...] Other (Please comment) Passed out OBJECTIVE: BP 120/68 | Pulse 88 | Temp 36.4 C (97.6 F) (Tympanic) | Resp 16 | Ht 1.651 m (5' 5") | Wt (!) 141.9 kg (312 lb 12.8 oz) | LMP 03/11/2003 | SpO2 93% Comment: 2 lpm | BMI 52.05 kg/m | BSA 2.55 m REVIEW OF SYSTEMS: Review of Systems Constitutional: Positive for fatigue. Negative for appetite change, chills, fever and unexpected weight change. Respiratory: Positive for shortness of breath. Negative for cough and wheezing. Cardiovascular: Positive for leg swelling. Negative for chest pain and palpitations. Gastrointestinal: Negative for abdominal pain, blood in stool, constipation, diarrhea, nausea and vomiting. Genitourinary: Negative for dysuria and hematuria. Musculoskeletal: Positive for arthralgias, back pain, gait problem, myalgias and neck pain. Neurological: Negative for dizziness, syncope and headaches. Psychiatric/Behavioral: Positive for dysphoric mood and sleep disturbance. Negative for confusion, decreased concentration, self-injury and suicidal ideas. The patient is nervous/anxious. PHYSICAL EXAM: BP 120/68 | Pulse 88 | Temp 36.4 C (97.6 F) (Tympanic) | Resp 16 | Ht 1.651 m (5' 5") | Wt (!) 141.9 kg (312 lb 12.8 oz) | LMP 03/11/2003 | SpO2 93% Comment: 2 lpm | BMI 52.05 kg/m | BSA 2.55 m Physical Exam Vitals and nursing note reviewed. Constitutional: General: She is not in acute distress. Appearance: Normal appearance. She is not toxic-appearing. HENT: Head: Normocephalic and atraumatic. Cardiovascular: Rate and Rhythm: Normal rate and regular rhythm. Heart sounds: Normal heart sounds. No murmur heard. No gallop. Pulmonary: Breath sounds: Normal breath sounds. No wheezing, rhonchi or rales. Abdominal: General: Bowel sounds are normal. There is no distension. Palpations: Abdomen is soft. Tenderness: There is no abdominal tenderness. Musculoskeletal: Right lower leg: Edema present. Left lower leg: Edema present. Neurological: Mental Status: She is alert. Mental status is at baseline. Gait: Gait abnormal. Psychiatric: Mood and Affect: Mood is depressed. Affect is tearful. Behavior: Behavior normal. Thought Content: Thought content normal. Cognition and Memory: Cognition and memory normal. ASSESSMENT/PLAN Other chronic pain (Primary) Continue Tramadol, Gabapentin, and Acetaminophen Spinal stenosis of lumbar region without neurogenic claudication Continue Tramadol, Gabapentin, and Acetaminophen Fibromyalgia Continue Gabapentin Moderate episode of recurrent major depressive disorder (HCC) Decrease Duloxetine to 30 mg daily Restart Sertraline 50 mg daily Continue to adjust medications at next visit 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 3b chronic kidney disease (HCC) Continue Furosemide, and Metolazone Type 2 diabetes mellitus with stage 3b chronic kidney disease, with long-term current use of insulin (HCC) Continue Trulicity, Tresiba, Novolog, and Metformin Morbid obesity with BMI of 50.0-59.9, adult (HCC) ILD (interstitial lung disease) (HCC) Chronic hypoxemic respiratory failure (HCC) Dyslipidemia Postsurgical hypothyroidism Continue levothyroxine History of pulmonary embolus (PE) Continue Apixaban Elwood filter in place Abnormality of gait Requires wheelchair to remain in her home. Restless legs syndrome Gastroesophageal reflux disease with esophagitis without hemorrhage Continue Omeprazole Atherosclerosis of mary's igloo coronary artery of mary's igloo heart without angina pectoris Primary osteoarthritis of both knees Anxiety state Continue Clonazepam Hyperparathyroidism, secondary renal (HCC) Hospital discharge follow-up - DISCH MED RECON CUR MED LIS Follow up as scheduled 04/07/2023 Follow Up: Return if symptoms worsen or fail to improve. Galdino Andujar DO * Shira Gross LPN - 03/17/2023 11:08 AM EDT Fall Risk Plan of Care Documentation: - Current medications reconciled Patient encouraged to: - Exercise - Provide education materials for Core strengthening - Utilize assistive/adaptive devices - Provide education materials - Avoid multifocal lenses when walking - Avoid hazards in home - Provide education materials - Maintain a regular toileting schedule Shira Gross LPN 03/17/2023 documented in this encounter Nursing Notes * Shira Gross LPN - 03/17/2023 11:10 AM EDT Hospital follow up, pain continues. documented in this encounter Plan of Treatment Upcoming Encounters Date Type Specialty Care Team Description 03/23/2023 Home Visit [facility] Brooke Jose RN [address] [place] [id number] 03/30/2023 Hospital Encounter Surgery Raj Ahn DO [address] [place] [address] 03/30/2023 Surgery Surgery Raj Ahn DO [address] [place] [address] INJECTION SACROILIAC JOINT 04/06/2023 Home Visit [facility] Brooke Jose, RN [address] [place] [address] 04/07/2023 Office Visit Family Medicine Galdino Andujar, DO [address] [place] [address] 04/21/2023 Office Visit Orthopedics Zack Teague, DO [address] [address] 04/29/2023 Home Visit [facility] Simi Martinez PA-C [address] [place] [address] 05/16/2023 Office Visit Family Medicine Galdino Andujar, DO [address] [place] [address] 08/08/2023 Nurse Only [employer], Nurse Annual Wellness Visit [address] [facility] [address] [place] [address] Scheduled Procedures Name Priority Associated Diagnoses Date/Ti [...] Additional history exists CKD PHOS USE SMARTSET 35417 02/12/202401/24, 01/07/2022, 03/12/2021, Additional history exists CKD HGB USE SMARTSET 42316 03/17/202403/17, 03/17/2023, 11/01/2022, Additional history exists Depression [...] Procedure Name Priority Date/Time Associated Diagnosis Comments DIFFERENTIAL, AUTOMATED Routine 03/17/2023 12:37 PM EDT 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 3b chronic kidney disease (HCC) CRP (INFLAMMATORY MARKER) Routine 03/17/2023 12:37 PM EDT Other chronic pain COMPREHENSIVE METABOLIC PANEL Routine 03/17/2023 12:37 PM EDT 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 3b chronic kidney disease (HCC) CBC WITH WBC DIFFERENTIAL Routine 03/17/2023 12:37 PM EDT 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 3b chronic kidney disease (HCC) ERYTHROCYTE SEDIMENTATION RATE (ESR) Routine 03/17/2023 12:37 PM EDT Other chronic pain CBC Routine 03/17/2023 12:37 PM EDT 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 3b chronic kidney disease (HCC) documented in this encounter Results * (ABNORMAL) DIFFERENTIAL, AUTOMATED (03/17/2023 12:37 PM EDT) WBC 12.35(H) 4.00 - 10.80 K/uL 03/17/2023 10:38 PM EDT [facility] Neutrophils % 68.8 40.0 - 75.0 % 03/17/2023 10:38 PM EDT [facility] Lymphocytes % 20.2 18.0 - 42.0 % 03/17/2023 10:38 PM EDT [facility] Monocytes % 6.9 1.0 - 11.0 % 03/17/2023 10:38 PM EDT [facility] Eosinophils % 2.9 0.0 - 6.0 % 03/17/2023 10:38 PM EDT [facility] Basophils % 0.6 0.0 - 2.0 % 03/17/2023 10:38 PM EDT [facility] Immature Granulocytes % 0.6 0.0 - 2.0 % 03/17/2023 10:38 PM EDT [facility] Absolute Neutrophils 8.49(H) 1.80 - 7.70 K/uL 03/17/2023 10:38 PM EDT [facility] Absolute Lymphocytes 2.50 1.00 - 4.80 K/ul 03/17/2023 10:38 PM EDT [facility] Absolute Monocytes 0.85 0.00 - 1.10 K/uL 03/17/2023 10:38 PM EDT [facility] Absolute Eosinophils 0.36 0.00 - 0.70 K/uL 03/17/2023 10:38 PM EDT [facility] Absolute Basophils 0.08 0.00 - 0.20 K/uL 03/17/2023 10:38 PM EDT [facility] Absolute Immature Granulocytes 0.07 0.00 - 0.20 K/uL 03/17/2023 10:38 PM EDT [facility] Blood Venous blood specimen / Unknown Venipuncture / Unknown 03/17/2023 12:37 PM EDT 03/17/2023 12:38 PM EDT Galdino Andujar DO LAB BLOOD ORDERABLES Performing Organization Address City/State/[facility] Co de Phone Number [facility] [address] [place] [address] * (ABNORMAL) CBC (03/17/2023 12:37 PM EDT) WBC 12.35(H) 4.00 - 10.80 K/uL 03/17/2023 10:38 PM EDT [facility] RBC 4.45 3.85 - 5.15 M/uL 03/17/2023 10:38 PM EDT [facility] HGB 13.2 12.0 - 15.3 g/dL 03/17/2023 10:38 PM EDT [facility] HCT 43.3 36.0 - 45.2 % 03/17/2023 10:38 PM EDT [facility] MCV 97.3 81.5 - 97.5 fL 03/17/2023 10:38 PM EDT [facility] MCH 29.7 27.0 - 34.0 pg 03/17/2023 10:38 PM EDT [facility] MCHC 30.5 32.0 - 36.0 g/dL 03/17/2023 10:38 PM EDT [facility] RDW 14.0 11.5 - 15.5 % 03/17/2023 10:38 PM EDT [facility] [place] 286 140 - 400 K/uL 03/17/2023 10:38 PM EDT [facility] MPV 10.3 6.6 - 11.1 fL 03/17/2023 10:38 PM EDT [facility] nRBCs 0 <=0 /100 WBCs 03/17/2023 10:38 PM EDT [facility] Blood Venous blood specimen / Unknown Venipuncture / Unknown 03/17/2023 12:37 PM EDT 03/17/2023 12:38 PM EDT Galdino Andujar DO LAB BLOOD ORDERABLES [facility] [address] [place] [address] * (ABNORMAL) CRP (INFLAMMATORY MARKER) (03/17/2023 12:37 PM EDT) CRP (Inflammatory Marker) 15(H) <=5 mg/L 03/17/2023 10:59 PM EDT LABORATORY C Blood Venous blood specimen / Unknown Venipuncture / Unknown 03/17/2023 12:37 PM EDT 03/17/2023 12:38 PM EDT Galdino Andujar DO LAB BLOOD ORDERABLES Performing Organization Address City/[facility] [address]/ZIP Co de Phone Number [facility] [address] [place] [address] * (ABNORMAL) ERYTHROCYTE SEDIMENTATION RATE (ESR) (03/17/2023 12:37 PM EDT) ESR 38(H) <30 mm/hour 03/17/2023 10:16 PM EDT LABORATORY C Blood Venous blood specimen / Unknown Venipuncture / Unknown 03/17/2023 12:37 PM EDT 03/17/2023 12:38 PM EDT Galdino Andujar DO LAB BLOOD ORDERABLES Performing Organization Address City/[facility] [address]/ZIP Co de Phone Number [facility] [address] [place] [address] * (ABNORMAL) COMPREHENSIVE METABOLIC PANEL (03/17/2023 12:37 PM EDT) BUN 25(H) 6 - 20 mg/dL 03/17/2023 10:59 PM EDT [facility] Creatinine 1.6(H) 0.5 - 1.0 mg/dL 03/17/2023 10:59 PM EDT [facility] Estimated Glomerular Filtration Rate 35(L) >=60 mL/min 03/17/2023 10:59 PM EDT LABORATORY C Comment:eGFR is calculated b ased on the CKD-EPI 2020 equation Sodium 141 135 - 146 mmol/L 03/17/2023 10:59 PM EDT [facility] Potassium 4.0 3.5 - 5.1 mmol/L 03/17/2023 10:59 PM EDT [facility] Chloride 98 98 - 107 mmol/L 03/17/2023 10:59 PM EDT [facility] CO2 31 22 - 32 mmol/L 03/17/2023 10:59 PM EDT [facility] Anion Gap 12 7 - 15 mmol/L 03/17/2023 10:59 PM EDT [facility] Glucose 127(H) 70 - 120 mg/dL 03/17/2023 10:59 PM EDT [facility] Albumin 4.2 3.8 - 5.0 g/dL 03/17/2023 10:59 PM EDT [facility] AST 17 10 - 35 U/L 03/17/2023 10:59 PM EDT [facility] Alkaline Phosphatase 93 35 - 130 U/L 03/17/2023 10:59 PM EDT [facility] Bilirubin, Total 0.3 <=1.2 mg/dL 03/17/2023 10:59 PM EDT [facility] Calcium 9.8 8.4 - 10.2 mg/dL 03/17/2023 10:59 PM EDT [facility] Protein 7.2 6.0 - 8.3 g/dL 03/17/2023 10:59 PM EDT [facility] ALT 17 10 - 35 U/L 03/17/2023 10:59 PM EDT LAB[facility] Blood Venous blood specimen / Unknown Venipuncture / Unknown 03/17/2023 12:37 PM EDT 03/17/2023 12:38 PM EDT Galdino Andujar LAB BLOOD ORDERABLES [facility] [address] [place] [address] documented in this encounter Visit Diagnoses Diagnosis Other chronic pain- Primary Spinal stenosis of lumbar region without neurogenic claudication Spinal stenosis, lumbar region, without neurogenic claudication Fibromyalgia Mylagia and myositis, unspecified Moderate episode of recurrent major depressive disorder (HCC) 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 3b chronic kidney disease (HCC) Type 2 diabetes mellitus with stage 3b chronic kidney disease, with long-term current use of insulin (HCC) Morbid obesity with BMI of 50.0-59.9, adult (HCC) Morbid obesity ILD (interstitial lung disease) (HCC) Postinflammatory pulmonary fibrosis Chronic hypoxemic respiratory failure (HCC) Chronic respiratory failure Dyslipidemia Other and unspecified hyperlipidemia Postsurgical hypothyroidism History of pulmonary embolus (PE) Personal history of pulmonary embolism Frank filter in place Other postprocedural status Abnormality of gait Restless legs syndrome Restless legs syndrome (RLS) Gastroesophageal reflux disease with esophagitis without hemorrhage Atherosclerosis of [place] coronary artery of [place] heart without angina pectoris Primary osteoarthritis of both knees Primary localized osteoarthrosis, lower leg Anxiety state Anxiety state, unspecified Hyperparathyroidism, secondary renal (HCC) Secondary hyperparathyroidism (of renal origin) Hospital discharge follow-up Other follow-up examination Inflammation of sacroiliac joint (HCC) Sacroiliitis, not elsewhere classified documented in this encounter Advance Directives Documents on File Type Date Recorded Patient Front End Java Developer Expl anation POLST 03/19/2020 4:25 PM POLST [...] the patient have Health Care Power of Manager [employer] Ret[employer] Sales? No Healthcare Agents on File Name Relationship Healthcare Agent Relationship Communication Galdino Camp Other - (no specific identity) Health Care Power of Manager [employer] Sales Princess Other - (no specific identity) Health Care Power of Manager [employer] Care Teams Manager Commodities Relationship Specialty Start Date End Date Galdino Andujar, DO [address] [place] [address] PCP - General Internal Medicine 01/07/22 documented as of this encounter
--- OUTSIDE RECORDS SUMMARY | 2023-06-01 04:11 | External Medical Summary | Summary of Care ---
Author Name Unknown Organization [facility] Address [address] [place] [address] Phone [phone] Care Team Providers Care Job Change Crew Member Name Role Phone Lexii Andujar DO Primary Care Provider [phone] Reason for Visit * Reason Comments eRx-Medication Refill Encounter Details Date Type Department Care Team Description 03/16/2023 Refill [facility] [address] [facility] [address] Lexii Andujar DO [address] [place] [address] 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, NYHA class 1 and CKD stage 3 (HCC); Chronic diastolic congestive heart failure (HCC); Gastroesophageal reflux disease with esophagitis without hemorrhage; Restless legs syndrome; Anxiety state Allergies Active [...] as of this encounter (statuses as of 03/16/2023) Medications Medication Sig Dispensed Refills Start Date End Date Status ONETOUCH DELICA LANCETS 33G MISC Check blood sugars 3-4 times daily 180 Each 5 8 Active oxygen GASIndications:ELISSA (obstructive sleep apnea) Use 3 L/min(Oxygen) as directed continuous. 0 0 Active DIURETIC TITRATION PLANIndications:Chr onic diastolic congestive heart failure (HCC) If no improvement on day 3, contact heart failure managing provider. 1 Each 0 0 Active Blood Glucose Monitoring Suppl (StarGen ULTRA 2) w/Device KIT Use to test BG values 1 Kit 0 0 Active Acetaminophen 500 MG Oral Tablet Take 1 Tablet by mouth every 6 hours as needed. 0 Active CPAP every night at bedtime. 0 Active BD Pen Needle Short U/F 31G X 8 MM (Insulin Pen Needle) use five times daily 500 Each 3 2 Active Qriouslyuch Ultra Blue In Vitro Strip (Glucose Blood) [...] hemoglobin A1c goal of less than 8.0% ([facility]) Take 1 Tablet (500 mg) by mouth [...] 3 Active Gabapentin 300 MG Oral Capsule (Neurontin)Indicati ons:Fibromyalgia Take 2 Capsules by mouth in the morning and 2 Capsules at noon and 2 Capsules before bedtime. 120 Capsule 5 3 Active Tresiba FlexTouch 100 UNIT/ML Subcutaneous Solution Pen-injector (Insulin Degludec)Indication s:Type 2 diabetes mellitus with hemoglobin A1c goal of 7.0%-8.0% ([facility]) INJECT 58 UNITS UNDER THE SKIN IN [...] THE MORNING 30 Capsule 3 3 Active clonazePAM 0.5 MG Oral Tablet (KlonoPIN)Indicatio ns:Restless legs syndrome,Anxiety state TAKE 1 TABLET BY MOUTH IN THE MORNING AND AT BEDTIME 60 Tablet 0 3 Active Potassium Chloride ER 20 MEQ Oral Tablet Extended ReleaseIndications: 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, NYHA class 1 and CKD stage 3 (HCC),Chronic diastolic congestive heart failure (HCC) Take 1 Tablet (20 mEq) by mouth in the morning and 1 Tablet (20 mEq) before bedtime. 60 Tablet 5 2 03/16/20 23 Discontinued Omeprazole 20 MG Oral Capsule Delayed Release (PriLOSEC)Indicatio ns:Gastroesophageal reflux disease with esophagitis without hemorrhage TAKE 1 CAPSULE BY MOUTH ONCE DAILY IN THE MORNING 30 Capsule 3 3 03/16/20 23 Discontinued clonazePAM 0.5 MG Oral Tablet (KlonoPIN)Indicatio ns:Restless legs syndrome,Anxiety state TAKE 1 TABLET BY MOUTH IN THE MORNING AND AT BEDTIME 60 Tablet 0 3 03/16/20 23 Discontinued Hospital, Clinic, or Other Facility [...] as of this encounter (statuses as of 03/16/2023) Active Problems Problem Noted Date Food insecurity 03/07/2023 Overview: Per [facility] Protocol Type 2 diabetes mellitus wit [...] 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/31/2021 Atherosclerosis of [place] coronary arter 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 12/31/2021 [...] Plan: Continue tramadol Abnormality of gait 02/02/[address] [place] [address] 08/19/2014 History of pulmonary [...] as of this encounter (statuses as of 03/16/2023) Resolved Problems Problem Noted Date Resolved Date [...] as of this encounter (statuses as of 03/16/2023) Immunizations Name Administration Dates Next Due COVID-19 mRNA, LNP-s, No Pre serve, 2-Dose Series ([employer]) 01/08/2021,12/18/2020 COVID-19, LNP-s, No Preserve , Navarro-sucrose, Ages 12+ (Pfizer) 2022,10/01/2021 Pneumococcal Conjugate Vacci ne, 20-valent ([id number]) 03/12/2022 Pneumococcal Polysaccharide PPV23 (Pneumovax) 08/22/2009,06/15/2006 Seasonal [...] Telephone Encounter - Lexii Andujar DO - 03/16/2023 3:43 PM EDTSigned Prescriptions: Disp Refills Potassium Chloride Ayleen ER 20 MEQ Oral Tab*60 Tab*5 Sig: TAKE 1 TABLET BY MOUTH IN THE MORNING AND AT BEDTIMEAuthorizing Provider: LEXII ANDUJAR Omeprazole 20 MG Oral Capsule Delayed Rele*30 Cap*3 Sig: TAKE 1 CAPSULE BY MOUTH ONCE DAILY IN THE MORNINGAuthorizingProvider: LEXII ANDUJAR clonazePAM 0.5 MG Oral Tablet (KlonoPIN) 60 Tab*0 Sig: TAKE 1 TABLETBY MOUTH IN THE MORNING AND AT BEDTIMEAuthorizing Provider: LEXII ANDUJAR * Telephone Encounter - Lexii Andujar DO - 03/16/2023 3:43 PM EDT I have reviewed the patients controlled substance dispensing history in the Prescription Drug Monitoring Program in compliance with the [facility] regulations before prescribing a controlled substance. [...] results can be found in Results Review. * Telephone Encounter - Ingrid Rene LPN - 03/16/2023 3:27 PM EDTPending Prescriptions: Disp Refills Potassium Chloride Ayleen ER 20 MEQ Oral Tab*60 Tab*5 Sig: TAKE 1 TABLET BY MOUTH IN THE MORNING AND AT BEDTIME Omeprazole 20 MG Oral Capsule Delayed Rele*30 Cap*3 Sig: TAKE 1 CAPSULE BY MOUTH ONCE DAILY IN THE MORNING clonazePAM 0.5 MG Oral Tablet [Pharmacy Me*60 Tab*0 Sig: TAKE 1 TABLET BY MOUTH IN THE MORNING AND AT BEDTIME ---- * Telephone Encounter - Ingrid Rene LPN - 03/16/2023 3:26 PM EDT Ingrid Rene LPN [facility] 03/16/2023,3:26 PM documented in this encounter Plan of Treatment Upcoming Encounters Date Type Specialty Care Team Description 03/17/2023 Pharmacy [facility], Pharmacist [address] [place] [address] 03/17/2023 Office Visit [facility] Lexii Andujar DO [address] [place] [address] 03/18/2023 Telemedicine [facility] Lucia Garcia CRNP [address] [place] [address] Jessica Rios, Community Health Fish And Wildlife Technician [address] [place] [address] [place] [address] 03/23/2023 Home Visit [facility] Brooke Jose RN [address] [place] [address] 03/30/2023 Hospital Encounter Surgery Raj Ahn, DO [address] [place] [address] 03/30/2023 Surgery Surgery Raj Ahn, DO [address] [place] [address] INJECTION SACROILIAC JOINT 04/06/2023 Home Visit [facility] Brooke Jose, RN [address] [facility] [place] [address] 04/21/2023 Office Visit Orthopedics Zack Teague, DO [address] [place] [address] 04/29/2023 Home Visit [facility] Simi Martinez PA-C [address] [place] [address] 05/16/2023 Office Visit Family Medicine Lexii Andujar, DO [address] [place] [address] 08/08/2023 Nurse Only [employer], Nurse Annual Wellness Visit [address] [facility] [address] [place] [address] Scheduled Procedures Name Priority Associated Diagnoses Date/Ti [...] 0 02/2023, 09/13/2022, Additional history exists HbA1c 08/14/2023 02/11/2023, 0 02/2023, 05/12/2022, Additional history exists Albumin/Creatinine Ratio 11/01/2023 023, 01/07/2022, 05/24/2019, Additional history exists CKD HGB USE SMARTSET 19909 11/01/202311/01, 11/01/2022, 06/29/2022, Additional history exists DIABETES-FOOT EXAM 11/01/2023 11/01/2022, 0 01/07/2022, 01/14/2021, Additional history exists TSH 11/01/2023 11/01/2022, 12/25, 12/25/2020, Additional history exists CKD PHOS USE SMARTSET 39097 02/12/202401/24, 01/07/2022, 03/12/2021, Additional history exists Depression [...] as of this encounter Visit Diagnoses Diagnosis 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, NYHA class 1 and CKD stage 3 (HCC) Chronic diastolic congestive heart failure (HCC) Chronic diastolic heart failure Gastroesophageal reflux disease with esophagitis without hemorrhage Restless legs syndrome Restless legs syndrome (RLS) Anxiety state Anxiety state, unspecified Inflammation of sacroiliac joint (HCC) Sacroiliitis, not elsewhere classified documented in this encounter Advance Directives Documents on File Type Date Recorded Patient Technical Staff Assistant Expl anation POLST 03/19/2020 4:25 PM POLST [...] the patient have Health Care Power of Autopsy Pathologist? No Healthcare Agents on File Name Relationship Healthcare Agent Relationship Communication Lexii Camp Other - (no specific identity) Health Care Power of Autopsy Pathologist Princess Other - (no specific identity) Health Care Power of Autopsy Pathologist Care Teams Job Change Crew Member Relationship Specialty Start Date End Date Lexii Andujar, DO [address] [place] [address] PCP - General Internal Medicine 01/07/22 documented as of this encounter
--- OUTSIDE RECORDS SUMMARY | 2023-06-01 04:11 | External Medical Summary ---
Author Name Unknown Address Unknown Organization [id number]:[facility] [place] [address] [facility] [address] Laboratory Report Ordering Provider Test Date Status JAG SHULTZ 03/17/2023 12:37:18 Final Observation Date Value Abnormality Reference (Units ) Status BUN 03/17/2023 12:37:18 25 Above high normal 6-20 (mg/dL) Final Creatinine 03/17/2023 12:37:18 1.6 Above high normal 0.5-1.0 (mg/dL) Final Glomerular filtration rate/1.73 sq M.predicted [Volume Rate/Area] in Serum, Plasma or Blood by Creatinine-based formula (CKD-EPI) 03/17/2023 12:37:18 35 Below low normal >=60 (mL/min) Final Performing Location [facility] [place] [address] [place] [address]
--- OUTSIDE RECORDS SUMMARY | 2023-06-01 04:11 | External Medical Summary ---
Author Name Unknown Address Unknown Organization [id number]:[facility] [place] [address] [facility] [address] Laboratory Report Ordering Provider Test Date Status JAG SHULTZ 03/17/2023 12:37:18 Final Observation Date Value Abnormality Reference (Units ) Status WBC, Total 03/17/2023 12:37:18 12.35 Above high normal 4.00-10.80 (K/uL) Final RBC 03/17/2023 12:37:18 4.45 3.85-5.15 (M/uL) Final Hemoglobin 03/17/2023 12:37:18 13.2 12.0-15.3 (g/dL) Final HCT 03/17/2023 12:37:18 43.3 36.0-45.2 (%) Final MCV 03/17/2023 12:37:18 97.3 81.5-97.5 (fL) Final MCH 03/17/2023 12:37:18 29.7 27.0-34.0 (pg) Final MCHC 03/17/2023 12:37:18 30.5 32.0-36.0 (g/dL) Final RDW 03/17/2023 12:37:18 14.0 11.5-15.5 (%) Final Platelets 03/17/2023 12:37:18 286 140-400 (K/uL) Final MPV 03/17/2023 12:37:18 10.3 6.6-11.1 (fL) Final Nucleated erythrocytes/100 leukocytes [Ratio] in Blood by Automated count 03/17/2023 12:37:18 0 <=0 (/100 WBCs) Final Performing Location [facility] [address] [place] [address]
--- OUTSIDE RECORDS SUMMARY | 2023-06-01 04:11 | External Medical Summary ---
Author Name Unknown Address Unknown Organization K01:[facility] - [address] [facility] [place] [address] Laboratory Report Ordering Provider Test Date Status JAG SHULTZ 03/17/2023 12:37:18 Final Observation Date Value Abnormality Reference (Units ) Status SYNC LEUKOCYTES IN BLOOD BY AUTOMATED COUNT 03/17/2023 12:37:18 12.35 Above high normal 4.00-10.80 (K/uL) Final Segs 03/17/2023 12:37:18 68.8 40.0-75.0 (%) Final Lymphs % 03/17/2023 12:37:18 20.2 18.0-42.0 (%) Final Monos 03/17/2023 12:37:18 6.9 1.0-11.0 (%) Final Eosinophils 03/17/2023 12:37:18 2.9 0.0-6.0 (%) Final Basos 03/17/2023 12:37:18 0.6 0.0-2.0 (%) Final Immature Granulocyte, Percent 03/17/2023 12:37:18 0.6 0.0-2.0 (%) Final Absolute Segs 03/17/2023 12:37:18 8.49 Above high normal 1.80-7.70 (K/uL) Final Lymphs, absolute 03/17/2023 12:37:18 2.50 1.00-4.80 (K/ul) Final Monos, Abs 03/17/2023 12:37:18 0.85 0.00-1.10 (K/uL) Final Eos, Abs 03/17/2023 12:37:18 0.36 0.00-0.70 (K/uL) Final Basos, Abs 03/17/2023 12:37:18 0.08 0.00-0.20 (K/uL) Final Immature Granulocytes, Number 03/17/2023 12:37:18 0.07 0.00-0.20 (K/uL) Final Performing Location [facility] [place] [address] [facility] [address]
--- OUTSIDE RECORDS SUMMARY | 2023-06-01 04:11 | External Medical Summary ---
Author Name Unknown Address Unknown Organization K01:[facility] [place] [address] [place] [address] [place] [address] Laboratory Report Ordering Provider Test Date Status JAG SHULTZ 03/17/2023 12:37:18 Final Observation Date Value Abnormality Reference (Units ) Status Erythrocyte sedimentation rate by Photometric method 03/17/2023 12:37:18 38 Above high normal <30 (mm/hour) Final Performing Location [facility] [place] [address] [place] [address]
--- OUTSIDE RECORDS SUMMARY | 2023-06-01 04:11 | External Medical Summary | Summary of Care ---
Author Name Unknown Organization [facility] Address [address] [place] [address] Phone [phone] Care Team Providers Care Wood Tank Builder Name Role Phone Galdino Andujar DO Primary Care Provider [phone] Reason for Visit * Reason Onset Date Comments Information 03/15/2023 Encounter Details Date Type Department Care Team Description 03/15/2023 Telephone Family Practice [address] [facility], [place] [address] [place] [address] Galdino Andujar DO [address] [place] [address] Information Allergies Active Allergy Reactions Severity Noted Date [...] directed continuous. 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:Diamond Sander 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 1 Each 0 04/08/2020 Active Blood Glucose Monitoring Suppl (AdRollTOUCH ULTRA 2) w/Device KIT Use to test [...] of less than 8.0% ([facility]) Take 1 Tablet (500 mg) by mouth in the morning. 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, NYHA class 1 and CKD stage 3 (HCC),Chronic diastolic congestive heart failure (HCC) Take 1 Tablet (20 mEq) by mouth in the morning and 1 Tablet (20 mEq) before bedtime. 60 Tablet 5 08/25/2022 Active rOPINIRole HCl 2 [...] > 150. 121 mL 3 10/04/2022 Active Omeprazole 20 MG Oral Capsule Delayed Release (PriLOSEC)Indication s:Gastroesophageal reflux disease with esophagitis without hemorrhage TAKE 1 CAPSULE BY MOUTH ONCE DAILY IN THE MORNING 30 Capsule 3 11/17/2022 Active Magnesium Oxide 400 MG Oral TabletIndications:Be [...] skin weekly 6 mL 1 01/11/2023 Active clonazePAM 0.5 MG Oral Tablet (KlonoPIN)Indication s:Restless legs syndrome,Anxiety state TAKE 1 TABLET BY MOUTH IN THE MORNING AND AT BEDTIME 60 Tablet 0 02/10/2023 Active Senna-Time S 8.6-50 MG Oral Tablet [...] = 90 mg. 30 Capsule 5 03/15/2023 Active Gabapentin 300 MG Oral Capsule (Neurontin)Indicatio ns:Fibromyalgia Take 2 Capsules by mouth in the morning and 2 Capsules at noon and 2 Capsules before bedtime. 120 Capsule 5 03/15/2023 Active Tresiba FlexTouch 100 UNIT/ML Subcutaneous Solution Pen-injector (Insulin Degludec)Indications :Type 2 diabetes mellitus with hemoglobin A1c goal of 7.0%-8.0% ([facility]) INJECT 58 UNITS UNDER THE SKIN IN THE EVENING 60 mL 3 03/15/2023 Active Hospital, Clinic, or Other Facility Administered Medication Ordered Dose Route Frequency Start Date End Date Status Albuterol Sulfate (Proventil) (2.5 MG/3ML) 0.083% inhalation solution 2.5 mgIndications:Chronic hypoxemic respiratory failure (HCC),SOB (shortness of breath),Small airways disease,ILD (interstitial lung disease) ([facility]) 2.5 mg NEBULIZER PRN 01/07/2023 01/07/2024 Active Albuterol Sulfate (Proventil) (5 MG/ML) 0.5% *conc* inhalation solution 2.5 mgIndications:Chronic hypoxemic respiratory failure (HCC),SOB (shortness of breath),Small airways disease,ILD (interstitial lung disease) (HCC) 2.5 mg NEBULIZER PRN 01/07/2023 01/07/2024 Active documented as of this encounter (statuses as of 03/15/2023) Active Problems Problem Noted Date Food insecurity 03/07/2023 Overview: Per [facility] Protocol Type 2 diabetes mellitus wit [...] 22 Last Assessment & Plan: Followed by pulailyn [...] 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 Thank you * Telephone Encounter - ELISSA Snider - 03/15/2023 4:25 PM EDT Please call Chuck at [facility], left message Has script for Duloxetine Does not have the 10MG Please call documented in this encounter Plan of Treatment Upcoming Encounters Date Type Specialty Care Team Description 03/16/2023 Imaging Radiology 03/17/2023 Pharmacy [facility], Pharmacist [address] [place] [address] 03/17/2023 Office Visit [facility] Galdino Andujar DO [address] [place] [address] 03/18/2023 Telemedicine [facility] Lucia Garcia CRNP [address] [place] [address] Jessica Rios, Community [facility] Warp Drawer [address] [place] [address] [place] [address] 03/23/2023 Home Visit [facility] Brooke Jose RN [address] [place] [address] 03/30/2023 Hospital Encounter Surgery Raj Ahn, [address] [place] [address] 03/30/2023 Surgery Surgery Cousins, Raj Nolen, DO [address] [place] [address] INJECTION SACROILIAC JOINT 04/06/2023 Home Visit [facility] Brooke Jose, RN [address] [place] [address] 04/21/2023 Office Visit Orthopedics Zack Teague, DO [address] [place] [address] 04/29/2023 Home Visit [facility] Simi Martinez PA-C [address] [place] [address] 05/16/2023 Office Visit Family Medicine Galdino Andujar, DO [address] [place] [address] 08/08/2023 Nurse Only [employer], Nurse Annual Wellness Visit [address] [facility] [address] [place] [address] Scheduled Procedures Name Priority Associated Diagnoses Date/Ti [...] Additional history exists CKD HGB USE SMARTSET 09927 11/01/202311/01, 11/01/2022, 06/29/2022, Additional history exists DIABETES-FOOT EXAM 11/01/2023 11/01/2022, 0 01/07/2022, 01/14/2021, Additional history exists TSH 11/01/2023 11/01/2022, 12/25, 12/25/2020, Additional history exists CKD PHOS USE SMARTSET 99018 02/12/202401/24, 01/07/2022, 03/12/2021, Additional history exists Depression [...] Documents on File Type Date Recorded Patient Splitter Operator Expl anation POLST 03/19/2020 4:25 PM [...] the patient have Health Care Power of Biodiesel Production Associate? No Healthcare Agents on File Name Relationship Healthcare Agent Relationship Communication Galdino Camp Other - (no specific identity) Health Care Power of Biodiesel Production Associate Princess Allen Other - (no specific identity) Health Care Power of Biodiesel Production Associate Care Teams Wood Tank Builder Relationship Specialty Start Date End Date Galdino Andujar, DO [address] [place] [address] PCP - General Internal Medicine 01/07/22 documented as of this encounter
--- OUTSIDE RECORDS SUMMARY | 2023-06-01 04:12 | External Medical Summary | Summary of Care ---
Author Name Unknown Organization [facility] Address [address] [place] [address] Phone [phone] Care Team Providers Care Strategic Account Director Name Role Phone Galdino Andujar DO Primary Care Provider Reason for Visit * Reason Onset Date Comments Appointment 03/11/2023 [facility] discharge Encounter Details Date Type Department Care Team Description 03/11/2023 Telephone Family Practice [address] [facility], [place] [address] [place] [address] Galdino Andujar DO [address] [place], [place] [id number] Appointment ([facility] discharge) Allergies Active Allergy Reactions Severity Noted Date [...] as of this encounter (statuses as of 03/13/2023) Medications Medication Sig Dispensed Refills Start Date End Date Status ONETOUCH DELICA LANCETS 33G MISC Check blood sugars 3-4 times daily 180 Each 5 08/01/2018 Active oxygen GASIndications:ELISSA (obstructive sleep apnea) Use 3 L/min(Oxygen) as directed continuous. 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:Roll Inspector 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 1 Each 0 04/08/2020 Active Blood Glucose Monitoring Suppl (EverPresentTOUCH ULTRA 2) w/Device KIT Use to test [...] daily, E11.9 400 Strip 3 11/04/2021 Active Tresiba FlexTouch 100 UNIT/ML Subcutaneous Solution Pen-injector (Insulin Degludec)Indications :Type 2 diabetes mellitus with hemoglobin A1c goal of 7.0%-8.0% (HCC) INJECT 60 UNITS UNDER THE SKIN EVERY MORNING 60 mL 3 07/23/2022 Active Additional Information Patient taking differently: INJECT 58 UNITS UNDER THE SKIN IN THE EVENING, Reported on 02/11/2023 Cholecalciferol 25 MCG (1000 UT) Oral Capsule Take 1 Capsule (1,000 Units) by mouth in the morning. 30 Capsule 5 08/25/2022 Active DULoxetine HCl 60 MG Oral Capsule Delayed Release Particles (Cymbalta)Indication s:Fibromyalgia,Moder ate episode of recurrent major depressive disorder (HCC),Primary osteoarthritis of both knees Take 1 Capsule (60 mg) by mouth in the morning. Take 1 capsule daily. 30 Capsule 5 08/25/2022 Active metFORMIN HCl [...] [facility]),Chronic diastolic congestive heart failure ([facility]) TAKE 1 TABLET BY MOUTH IN [...] Mild or Pain, Moderate. 0 02/11/2023 Active Gabapentin 300 MG Oral Capsule (Neurontin)Indicatio ns:Fibromyalgia Take 1 Capsule by mouth in the morning and 1 Capsule at noon and 1 Capsule before bedtime. 90 Capsule 5 03/02/2023 Active Hospital, Clinic, or Other Facility Administered Medication Ordered Dose Route Frequency Start Date End Date Status Albuterol Sulfate (Proventil) (2.5 MG/3ML) 0.083% inhalation solution 2.5 mgIndications:Chronic hypoxemic respiratory failure (HCC),SOB (shortness of breath),Small airways disease,ILD (interstitial lung disease) ([facility]) 2.5 mg NEBULIZER PRN 01/07/2023 01/07/2024 Active Albuterol Sulfate (Proventil) (5 MG/ML) 0.5% *conc* inhalation solution 2.5 mgIndications:Chronic hypoxemic respiratory failure (HCC),SOB (shortness of breath),Small airways disease,ILD (interstitial lung disease) (HCC) 2.5 mg NEBULIZER PRN 01/07/2023 01/07/2024 Active documented as of this encounter (statuses as of 03/13/2023) Active Problems Problem Noted Date Food insecurity 03/07/2023 Overview: [facility] Protocol Type 2 diabetes mellitus wit [...] (HIT) 0 12/31/2021 Atherosclerosis of [place] coronary arter 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 12/31/2021 [...] as of this encounter (statuses as of 03/13/2023) Resolved Problems Problem Noted Date Resolved Date [...] as of this encounter (statuses as of 03/13/2023) Immunizations Name Administration Dates Next Due COVID-19 mRNA, LNP-s, No Pre serve, 2-Dose Series (Pfizer) 01/08/2021,12/18/2020 COVID-19, LNP-s, No Preserve , Navarro-sucrose, Ages 12+ (Pfizer) 2022,10/01/2021 Pneumococcal Conjugate Vacci ne, 20-valent ([id number]) 03/12/2022 Pneumococcal Polysaccharide PPV23 (Pneumovax) 08/22/2009,06/15/2006 Seasonal [...] encounter Miscellaneous Notes * Telephone Encounter - Galdino Andujar DO - 03/13/2023 9:33 PM EDT Noted * Telephone Encounter - Shira Gross LPN - 03/11/2023 1:31 PM EDT 03/17 at 11:40? * Telephone Encounter - ELISSA Snider - 03/11/2023 1:19 PM EDT Is being discharged from [facility] today Will need a follow up Nothing available Please advise documented in this encounter Plan of Treatment Upcoming Encounters Date Type Specialty Care Team Description 03/16/2023 Imaging Radiology 03/17/2023 Office Visit Family Medicine Galdino Andujar DO [address] [place] [address] 03/23/2023 Home Visit [facility] Brooke Jose RN [address] [place] [address] 03/30/2023 Hospital Encounter Surgery Raj Ahn DO [address] [place] [address] 03/30/2023 Surgery Surgery Raj Ahn DO [address] [place] [address] INJECTION SACROILIAC JOINT 04/06/2023 Home Visit [facility] Brooke Jose RN [address] [place] [address] 04/21/2023 Office Visit Orthopedics Zack Teague, DO [address] [facility] [place] [address] 04/29/2023 Home Visit [facility] Simi Martinez PA-C [address] [place] [address] 05/16/2023 Office Visit Family Medicine Galdino Andujar, DO [address] [place] [address] 08/08/2023 Nurse Only [employer], Nurse Annual Wellness Visit [address] [place] [address] Scheduled Procedures Name Priority Associated Diagnoses Date/Ti [...] 02/2023, 05/12/2022, Additional history exists Albumin/Creatinine Ratio 11/01/20232 023, 01/07/2022, 05/24/2019, Additional history exists CKD HGB USE SMARTSET 50386 11/01/202311/01, 11/01/2022, 06/29/2022, Additional history exists DIABETES-FOOT EXAM 11/01/2023 11/01/2022, 0 01/07/2022, 01/14/2021, Additional history exists TSH 11/01/2023 11/01/2022, 12/25, 12/25/2020, Additional history exists CKD PHOS USE SMARTSET 77764 02/12/202401/24, 01/07/2022, 03/12/2021, Additional history exists Depression [...] Documents on File Type Date Recorded Patient Outside Installation Machinist Expl anation POLST 03/19/2020 4:25 PM POLST [...] the patient have Health Care Power of Visual Stylist? No Healthcare Agents on File Name Relationship Healthcare Agent Relationship Communication Galdino Camp Other - (no specific identity) Health Care Power of Visual Stylist Princess Allen Other - (no specific identity) Health Care Power of Visual Stylist Care Teams Strategic Account Director Relationship Specialty Start Date End Date Galdino Andujar, DO [address] [place] [address] PCP - General Internal Medicine 01/07/22 documented as of this encounter
--- OUTSIDE RECORDS SUMMARY | 2023-06-01 04:12 | External Medical Summary | Summary of Care ---
Author Name Unknown Organization [facility] Address [address] [place] [address] Phone [phone] Care Team Providers Care Label Printing Machinist Name Role Phone ZiaandrewsGaldino DO Primary Care Provider [phone] Reason for Visit * Reason Onset Date Comments [facility]: Maintenance 03/11/2023 Encounter Details Date Type Department Care Team Description 03/11/2023 Telephone [facility], [facility] [address] [place] [address] Simi [place], Community Health Doggy Daycare Activities Director [facility]: Maintenance Allergies Active Allergy [...] as of this encounter (statuses as of 03/11/2023) Medications Medication Sig Dispensed Refills Start Date End Date Status ONETOUCH DELICA LANCETS 33G MISC Check blood sugars 3-4 times daily 180 Each 5 08/01/2018 Active oxygen GASIndications:ELISSA (obstructive sleep apnea) Use 3 L/min(Oxygen) as directed continuous. 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:Seed Laboratory Technician 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/31/2021 Atherosclerosis of [place] coronary arter 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 12/31/2021 [...] as of this encounter (statuses as of 03/11/2023) Resolved Problems Problem Noted Date Resolved Date [...] as of this encounter (statuses as of 03/11/2023) Immunizations Name Administration Dates Next Due COVID-19 mRNA, LNP-s, No Pre serve, 2-Dose Series ([employer]) 01/08/2021,12/18/2020 COVID-19, LNP-s, No Preserve , Navarro-sucrose, Ages 12+ (Pfizer) 2022,10/01/2021 Pneumococcal Conjugate Vacci ne, 20-valent ([id number]) 03/12/2022 Pneumococcal Polysaccharide PPV23 (Pneumovax) 08/22/2009,06/15/2006 Seasonal [...] encounter Miscellaneous Notes * Telephone Encounter - [facility] Doggy Daycare Activities Director - 03/11/2023 4:52 PM EDT Scheduled patient for her ROSA D/C from hospital 03/11/2023 Simi [place], ELISSA documented in this encounter Plan of Treatment Upcoming Encounters Date Type Specialty Care Team Description 03/12/2023 Home Visit [facility], Nurse [facility] [address] [place] [address] 03/16/2023 Imaging Radiology 03/30/2023 Hospital Encounter Surgery Raj Ahn, DO [address] [place] [address] 03/30/2023 Surgery Surgery Raj Ahn, DO [address] [place] [address] INJECTION SACROILIAC JOINT 04/06/2023 Home Visit [facility] Brooke Jose RN [address] [place] [address] 04/21/2023 Office Visit Orthopedics Zack Teague, [address] [place] [address] 04/29/2023 Home Visit [facility] Simi Martinez PA-C [address] [place] [address] 05/16/2023 Office Visit Family Medicine Galdino Andujar, DO [address] [place] [address] 08/08/2023 Nurse Only [employer], Nurse Annual Wellness Visit [address] [facility] [place] [address] Scheduled Procedures Name Priority Associated Diagnoses Date/Ti [...] Additional history exists CKD HGB USE SMARTSET 22859 11/01/202311/01, 11/01/2022, 06/29/2022, Additional history exists DIABETES-FOOT EXAM 11/01/2023 11/01/2022, 0 01/07/2022, 01/14/2021, Additional history exists TSH 11/01/2023 11/01/2022, 12/25, 12/25/2020, Additional history exists CKD PHOS USE SMARTSET 62173 02/12/202401/24, 01/07/2022, 03/12/2021, Additional history exists Depression [...] Documents on File Type Date Recorded Patient Frozen Meat Cutter Expl anation POLST 03/19/2020 4:25 PM POLST [...] the patient have Health Care Power of Stock Parts Inspector? No Healthcare Agents on File Name Relationship Healthcare Agent Relationship Communication Galdino Camp Other - (no specific identity) Health Care Power of Stock Parts Inspector Princess Allen Other - (no specific identity) Health Care Power of Stock Parts Inspector Care Teams Label Printing Machinist Relationship Specialty Start Date End Date Galdino Andujar, DO [address] [place] [address] PCP - General Internal Medicine 01/07/22 documented as of this encounter
--- OUTSIDE RECORDS SUMMARY | 2023-06-01 04:12 | External Medical Summary | Summary of Care ---
Author Name Unknown Organization [facility] Address [address] [place] [address] Phone [phone] Care Team Providers Care Shipping Clerk Crating Name Role Phone Galdino Andujar DO Primary Care Provider [phone] Reason for Visit * Reason Comments [facility]: Acute Back pain Encounter Details Date Type Department Care Team Description 03/12/2023 Home Visit [facility], [facility] [address] [facility] [place] [address] [facility], Nurse [facility] [address] [facility] [place] [address] Allergies Active Allergy Reactions Severity Noted Date [...] as of this encounter (statuses as of 03/12/2023) Medications Medication Sig Dispensed Refills Start Date [...] 0 0 Active Blood Glucose Monitoring Suppl (EloquiiTOUCH ULTRA 2) w/Device KIT Use to test [...] daily, E11.9 400 Strip 3 2 Active Tresiba FlexTouch 100 UNIT/ML Subcutaneous Solution Pen-injector (Insulin Degludec)Indication s:Type 2 diabetes mellitus with hemoglobin A1c goal of 7.0%-8.0% (HCC) INJECT 60 UNITS UNDER THE SKIN EVERY MORNING 60 mL 3 2 Active Additional Information Patient taking differently: INJECT 58 UNITS UNDER THE SKIN IN THE EVENING, Reported on 02/11/2023 Cholecalciferol 25 MCG (1000 UT) Oral Capsule Take 1 Capsule (1,000 Units) by mouth in the morning. 30 Capsule 5 2 Active DULoxetine HCl 60 MG Oral Capsule Delayed Release Particles (Cymbalta)Indicatio ns:Fibromyalgia,Mod erate episode of recurrent major depressive disorder (HCC),Primary osteoarthritis of both knees Take 1 Capsule (60 mg) by mouth in the morning. Take 1 capsule daily. 30 Capsule 5 2 Active metFORMIN HCl [...] Mild or Pain, Moderate. 0 3 Active Gabapentin 300 MG Oral Capsule (Neurontin)Indicati ons:Fibromyalgia Take 1 Capsule by mouth in the morning and 1 Capsule at noon and 1 Capsule before bedtime. 90 Capsule 5 3 Active Baclofen 10 MG Oral Tablet (Lioresal) Take 1 Tablet by mouth 2 times a day as needed. 0 Active DULoxetine HCl 60 MG Oral Capsule Delayed Release Particles (Cymbalta) Take 90 mg by mouth in the morning. 0 Active Cephalexin 500 MG Oral Capsule Take 1 Capsule by mouth in the morning and 1 Capsule at noon and 1 Capsule in the evening and 1 Capsule before bedtime. 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/31/2021 Atherosclerosis of [place] coronary arter 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 12/31/2021 [...] Plan: Continue tramadol Abnormality of gait 02/02/[address] [place] [address] 08/19/2014 History of pulmonary [...] as of this encounter (statuses as of 03/12/2023) Resolved Problems Problem Noted Date Resolved Date [...] as of this encounter (statuses as of 03/12/2023) Immunizations Name Administration Dates Next Due COVID-19 mRNA, LNP-s, No Pre serve, 2-Dose Series (SureBooks) 01/08/2021,12/18/2020 COVID-19, LNP-s, No Preserve , Navarro-sucrose, Ages 12+ (Pfizer) 2022,10/01/2021 Pneumococcal Conjugate Vacci ne, 20-valent ([id number]) 03/12/2022 Pneumococcal Polysaccharide PPV23 (Pneumovax) 08/22/2009,06/15/2006 Seasonal [...] Sign Reading Time Taken Comments Blood Pressure 120/64 03/12/2023 10:35 AM EDT Pulse 90 03/12/2023 10:35 AM EDT Temperature 36.6 C (97.9 F) 03/12/2023 10:35 AM E DT Respiratory Rate 18 03/12/2023 10:35 AM EDT Oxygen Saturation 98% 03/12/2023 10:35 AM EDT 3lnc Inhaled Oxygen Concentration - - Weight 139.3 kg (307 lb) 03/12/2023 10:35 AM EDT Height - - Body Mass Index 51.09 12/08/2022 2:34 PM EDT documented in this encounter Progress Notes * Brooke Jose RN - 03/12/2023 9:00 AM EDT [facility] Glass Furnace TenderCoffee Break Attendant Visit Date: 03/12/2023 Time: 9:00 AM Name: Stephanie Camp : 1955 Situation: [place]AR[place] 1 Background: 07/16 - - [facility] Admission - falls, acute on chronic CHF, acute on chronic respiratory failure,cellulitis R hand d/t cat bite 07/29 - 03/17 - [facility] - acute on chronic resp fx with hypoxia, UTI, chronic diastolic HF, d/c home on doxycycline and cefdinir 09/06/22 - Acute [facility] HV -DTP initiated, keflex for cellulitis, urine culture was negative 09/19/22 - [facility] ER - abdominal pain, CT negative, no changes 10/11/22 -Acute visit forrespiratory viral swab - negative 10/25/22 - Acute call to [facility] - n/v/d, vertigo 01/14/23 - prednisone x5 days for sciatica (by pcp) [facility] Medication Management:pill packs from [facility] ACP:updated12/24/22 [facility] Provider Visit:08/10/22, 11/22/22 - message to scheduling to get pt scheduled to see Simi Martinez 03/07 - - [facility] - Back pain, cellulitis Assessment: ''I told them my legs always look like this'' Was prescribed Keflex for 4 days after d/c Baclofen increased to 10mg bid prn (was 5mg bid prn) Gabapentin increased to 600mg tid Started on cymbalta 90mg daily Was seen by Psych inpt d/t passive SI d/t pain - denies SI during HV Has not been able to picker and sorter load and unload Rxs yet - she will have them transferred to [facility] and will have delivered States, ''pain was so bad that I couldn't take it anymore'' and went to hospital States called [facility] and was on hold for 10 minutes and hung up and pushed button on PERS Pain was ''10/07'' at time of pushing button Back pain during visit 02/02 and is tolerable Reports was constipated in hospital as well but this has resolved To have w/c delivered tomorrow Breathing at baseline Sugars have been running higher d/t ''steroids they gave me'' bsg 191 this morning Wt Readings from Last 7 Encounters: 03/12/23 (!) 139.3 kg (307 lb) 03/01/23 (!) 142.4 kg (314 lb) 02/11/23 (!) 144.7 kg (318 lb 14.4 oz) 02/02/23 (!) 142 kg (313 lb) 01/25/23 (!) 142.4 kg (314 lb) 12/24/22 (!) 142.4 kg (314 lb) 12/08/22 (!) 143.5 kg (316 lb 4.8 oz) Lungs cta Trace b/l le pitting edema Appears euvolemic Problems/Symptoms: Review of Systems Constitutional: Negative. HENT: Negative for congestion. Eyes: Negative. Respiratory: Positive for shortness of breath (AVENDAÑO at baseline). Negative for cough. Cardiovascular: Negative for chest pain, palpitations and leg swelling. Gastrointestinal: Negative for abdominal distention, abdominal pain, blood in stool, constipation, diarrhea, nausea and vomiting. Endocrine: Negative. Genitourinary: Negative for dysuria, flank pain and hematuria. Musculoskeletal: Positive for arthralgias, back pain, gait problem and myalgias. Skin: Positive for color change (L 3rd toe). Allergic/Immunologic: Negative. Neurological: Positive for weakness (d/t pain). Negative for dizziness. Hematological: Bruises/bleeds easily. Psychiatric/Behavioral: Positive for dysphoric mood. All other systems reviewed and are negative. Physical Exam: LMP 03/11/2003 Pain 5 Physical Exam Constitutional: Appearance: She is obese. HENT: Head: Normocephalic. Eyes: Extraocular Movements: Extraocular movements intact. Cardiovascular: Rate and Rhythm: Regular rhythm. Tachycardia present. Comments: Mildly tachycardic Pulmonary: Effort: Pulmonary effort is normal. Breath sounds: Normal breath sounds. Abdominal: General: Bowel sounds are normal. Palpations: Abdomen is soft. Musculoskeletal: Cervical back: Neck supple. Comments: RLE mild erythema. Slightly larger than left. (baseline) No pitting edema Skin: General: Skin is warm and dry. Neurological: General: No focal deficit present. Mental Status: She is alert and oriented to person, place, and time. Gait: Gait abnormal. Psychiatric: Mood and Affect: Mood normal. [facility] Completed this Visit: Yes. [facility]: Reason Completed: Status post ED visit/hospital admission [facility]10 Interventions: Fall education provided, reviewed/provided Fall brochure Treatment/Plan: Receives [facility] Ortho referral placed 01/25/23 for back pain management INSTRUCT AT EACH VISIT: CALL [facility] PRIOR TO GOING TO ER FOR ANY REASON USES PILL PACKS FROM [employer] DRY WT as of 08/03/22 - 313lbs Frequent UTI's - typically asymptomatic until has fever, has standing order for urine culture Ambulate with roller walker at ALL times o2 2lnc at rest, 4Lnc with activity - [facility] [phone] WEAR O2 AT ALL TIMES OR BECOMES [...] - gets injections of SI joints Patient's Goals of Care: Get dexcom sensor Get scooter Get back injections Patient's 'Red Flags': Unable to wear o2 for any reason (leads to falls) Wt increase to 315lbs Increased sob Abdominal pain Home Interventions Provided: Reinforced current Plan of Care, including self-management and medication regimen Patient Needs to Remember: Call [facility] with red flags Referrals Needed: Other none Follow Up: Is there cellular connectivity/connectivity in the home? Yes Does the patient have internet in the home? Yes Patient encouraged to call the intake phone number for all urgent but not emergent issues. Scheduled to follow up with patient Naren 2 in one week with provider naren 3 in 2 weeks with RNCM - 03/23 Brooke Jose RN 03/12/2023 9:00 AM documented in this encounter Plan of Treatment Upcoming Encounters Date Type Specialty Care Team Description 03/16/2023 Imaging Radiology 03/23/2023 Home Visit [facility] Brooke Jose RN [address] [place] [address] 03/30/2023 Hospital Encounter Surgery Raj Ahn, DO [address] [place] [address] 03/30/2023 Surgery Surgery Raj Ahn, DO [address] [place] [address] INJECTION SACROILIAC JOINT 04/06/2023 Home Visit [facility] Brooke Jose, RN [address] [facility] [place] [address] 04/21/2023 Office Visit Orthopedics Zack Teague, DO [address] [place] [address] 04/29/2023 Home Visit [facility] Simi Martinez PA-C [address] [place] [address] 05/16/2023 Office Visit Family Medicine Galdino Andujar, DO [address] [facility], [place] [address] 08/08/2023 Nurse Only [employer], Nurse Annual Wellness Visit [address] [place] [address] Scheduled Procedures Name Priority Associated Diagnoses Date/Ti [...] Additional history exists CKD HGB USE SMARTSET 54935 11/01/202311/01, 11/01/2022, 06/29/2022, Additional history exists DIABETES-FOOT EXAM 11/01/2023 11/01/2022, 0 01/07/2022, 01/14/2021, Additional history exists TSH 11/01/2023 11/01/2022, 12/25, 12/25/2020, Additional history exists CKD PHOS USE SMARTSET 58586 02/12/202401/24, 01/07/2022, 03/12/2021, Additional history exists Depression [...] Documents on File Type Date Recorded Patient Patient Access Director Expl anation POLST 03/19/2020 4:25 PM POLST [...] the patient have Health Care Power of Professor Of Public Administration? No Healthcare Agents on File Name Relationship Healthcare Agent Relationship Communication Galdino Camp Other - (no specific identity) Health Care Power of Professor Of Public Administration Princess lAlen Other - (no specific identity) Health Care Power of Professor Of Public Administration Care Teams Shipping Clerk Crating Relationship Specialty Start Date End Date Galdino Andujar, DO [address] [place] [address] PCP - General Internal Medicine 01/07/22 documented as of this encounter
--- OUTSIDE RECORDS SUMMARY | 2023-06-01 04:12 | External Medical Summary | Summary of Care ---
Author Name Unknown Organization [facility] Address [address] [place] [address] Phone [phone] Care Team Providers Care Spray Worker Name Role Phone PratimaGaldino DO Primary Care Provider Reason for Visit * Reason Onset Date Comments Appointment 03/14/2023 Encounter Details Date Type Department Care Team Description 03/14/2023 Telephone [facility], [place] [address] [place] [address] Services, Scheduling [address] [place] [address] Appointment (/) Allergies Active Allergy Reactions Severity Noted Date [...] as of this encounter (statuses as of 03/14/2023) Medications Medication Sig Dispensed Refills Start Date End Date Status DEMIAN BISWAS LANCETS 33G MISC Check blood sugars 3-4 times daily 180 Each 5 08/01/2018 Active oxygen GASIndications:ELISSA (obstructive sleep apnea) Use 3 L/min(Oxygen) as directed continuous. 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:Lining Maker Hand zahra diastolic congestive heart failure (HCC) If [...] hemoglobin A1c goal of less than 8.0% ([facility]) Take 1 Tablet (500 mg) [...] mellitus with hemoglobin A1c goal of 7.0%-8.0% ([facility]) Inject 40-45 units with meals [...] NYHA class 1 and CKD stage 3 ([facility]),Chronic diastolic congestive heart failure (HCC) [...] before bedtime. 90 Capsule 5 03/02/2023 Active Baclofen 10 MG Oral Tablet (Lioresal) [...] and 1 Capsule before bedtime. 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/31/2021 Atherosclerosis of [place] coronary arter 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 12/31/2021 [...] as of this encounter (statuses as of 03/14/2023) Resolved Problems Problem Noted Date Resolved Date [...] as of this encounter (statuses as of 03/14/2023) Immunizations Name Administration Dates Next Due COVID-19 mRNA, LNP-s, No Pre serve, 2-Dose Series (Kate's Goodness) 01/08/2021,12/18/2020 COVID-19, LNP-s, No Preserve , Navarro-sucrose, Ages 12+ (Pfizer) 2022,10/01/2021 Pneumococcal Conjugate Vacci ne, 20-valent ([id number]) 03/12/2022 Pneumococcal Polysaccharide PPV23 (Pneumovax) 08/22/2009,06/15/2006 Seasonal [...] Miscellaneous Notes * Telephone Encounter - ELISSA Rice - 03/14/2023 8:15 AM EDT Per request, call to pt to confirm brad 2 telemed for 03/18 at 830/9am, pt agreeable documented in this encounter Plan of Treatment Upcoming Encounters Date Type Specialty Care Team Description 03/16/2023 Imaging Radiology 03/17/2023 Office Visit Family Medicine Galdino Andujar, DO [address] [facility] [place] [address] 03/18/2023 Telemedicine [facility] Lucia Garcia CRNP [address] [place] [address] Jessica Rios, [facility] [employer] Architect [address] [place] [address] [place] [address] 03/23/2023 Home Visit [facility] Brooke Jose RN [address] [place] [address] 03/30/2023 Hospital Encounter Surgery Raj Ahn DO [address] [place] [address] 03/30/2023 Surgery Surgery Raj Ahn DO [address] [place] [address] INJECTION SACROILIAC JOINT 04/06/2023 Home Visit [facility] Brooke Jose RN [address] [place] [address] 04/21/2023 Office Visit Orthopedics Zack Teague, [address] [place] [address] 04/29/2023 Home Visit [facility] Simi Martinez PA-C [address] [place] [address] 05/16/2023 Office Visit Family Medicine Galdino Andujar, DO [address] [place] [address] 08/08/2023 Nurse Only [employer], Nurse Annual Wellness Visit [address] [place] [address] Scheduled Procedures Name Priority Associated Diagnoses Date/Ti [...] 04/07/2020, Additional history exists GFR 06/10/2023 12/08/2022, /0 02/2023, 09/13/2022, Additional history exists HbA1c 08/14/2023 02/11/2023, 020 02/2023, 05/12/2022, Additional history exists Albumin/Creatinine Ratio 11/01/2023 023, 01/07/2022, 05/24/2019, Additional history exists CKD HGB USE SMARTSET 14153 11/01/202311/01, 11/01/2022, 06/29/2022, Additional history exists DIABETES-FOOT EXAM 11/01/2023 11/01/2022, 0 01/07/2022, 01/14/2021, Additional history exists TSH 11/01/2023 11/01/2022, 12/25, 12/25/2020, Additional history exists CKD PHOS USE SMARTSET 16147 02/12/202401/24, 01/07/2022, 03/12/2021, Additional history exists Depression [...] Documents on File Type Date Recorded Patient Wheel Buffer Expl anation POLST 03/19/2020 4:25 PM POLST [...] the patient have Health Care Power of Wearing Apparel Assembler? No Healthcare Agents on File Name Relationship Healthcare Agent Relationship Communication Galdino Camp Other - (no specific identity) Health Care Power of Wearing Apparel Assembler Princess Allen Other - (no specific identity) Health Care Power of Wearing Apparel Assembler Care Teams Spray Worker Relationship Specialty Start Date End Date Galdino Andujar, DO [address] [place] [address] PCP - General Internal Medicine 01/07/22 documented as of this encounter
--- OUTSIDE RECORDS SUMMARY | 2023-06-01 04:12 | External Medical Summary | Summary of Care ---
Author Name Unknown Organization [facility] Address [address] [place] [address] Phone [phone] Care Team Providers Care Forming Department End Finder Name Role Phone Galdino Andujar DO Primary Care Provider [phone] Reason for Visit * Reason Comments [facility]: Acute Back pain Encounter Details Date Type Department Care Team Description 03/12/2023 Home Visit [facility], [facility] [address] [facility] [place] [address] [facility], Nurse [facility] [address] [facility] [place] [address] Allergies Active Allergy Reactions Severity Noted Date [...] 0 0 Active Blood Glucose Monitoring Suppl (SuperSolver.comTOUCH ULTRA 2) w/Device KIT Use to test [...] goal of less than 8.0% ([facility]) Take 1 Tablet (500 mg) by [...] hemoglobin A1c goal of 7.0%-8.0% ([facility]) Inject 40-45 units with meals [...] 1 and CKD stage 3 ([facility]),Chronic diastolic congestive heart failure ([facility]) TAKE 1 TABLET BY MOUTH IN [...] 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/31/2021 Atherosclerosis of [place] coronary arter 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 12/31/2021 [...] Plan: Continue tramadol Abnormality of gait 02/02/[address] 08/19/2014 History of pulmonary [...] mRNA, LNP-s, No Pre serve, 2-Dose Series (E[employer]Swarm) 01/08/2021,12/18/2020 COVID-19, LNP-s, No Preserve , Navarro-sucrose, Ages 12+ (Pfizer) 2022,10/01/2021 Pneumococcal Conjugate Vacci ne, 20-valent ([id number]) 03/12/2022 Pneumococcal Polysaccharide PPV23 (Pneumovax) 08/22/2009,06/15/2006 Seasonal [...] 03/12/2023 9:00 AM EDT [facility] Lecturer In Computer ScienceExecutive Director Of Marketing Visit Date: 03/12/2023 Time: 9:00 AM Name: Stephanie Camp : 1955 Situation: NAR[place] 1 Background: 07/16 - - [facility] Admission - falls, acute on chronic CHF, acute on chronic respiratory failure,cellulitis R hand d/t cat bite 07/29 - 03/17 - [facility] - acute on chronic resp fx with hypoxia, UTI, chronic diastolic HF, d/c home on doxycycline and cefdinir 09/06/22 - Acute [facility] HV -DTP initiated, keflex for cellulitis, urine culture was negative 09/19/22 - [facility] ER - abdominal pain, CT negative, no changes 10/11/22 -Acute visit forrespiratory viral swab - negative 10/25/22 - Acute call to [facility] - n/v/d, vertigo 01/14/23 - prednisone x5 days for sciatica (by pcp) Living Situation:alone in senior [facility] building Medication Management:pill packs from [facility] ACP:updated12/24/22 [facility] Provider Visit:08/10/22, 11/22/22 - message to scheduling to get pt scheduled to see Simi Martinez 03/07 - - [facility] - Back pain, cellulitis Assessment: [...] HV Has not been able to picker packer Rxs 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 Psychiatric: Mood and Affect: Mood normal. [facility] Completed this Visit: Yes. [facility]: Reason Completed: Status post ED visit/hospital admission [facility]10 Interventions: Fall education provided, reviewed/provided Fall brochure Treatment/Plan: Receives [facility] Ortho referral placed 01/25/23 for back pain management INSTRUCT AT EACH VISIT: CALL [facility] PRIOR TO GOING TO ER FOR ANY REASON USES PILL PACKS FROM [employer] [facility] DRY WT as of 08/03/22 - 313lbs Frequent UTI's - typically asymptomatic until has fever, has standing order for urine culture Ambulate with roller walker at ALL times o2 2lnc at rest, 4Lnc with activity - [facility] [phone] WEAR O2 AT ALL TIMES OR BECOMES [...] Jose RN [address] [place] [address] 03/30/2023 Hospital Encounter Surgery Raj Ahn, DO [address] [place] [address] 03/30/2023 Surgery Surgery Raj Ahn, DO [address] [place] [address] INJECTION SACROILIAC JOINT 04/06/2023 Home Visit [facility] Brooke Jose, RN [address] [facility] [place] [address] 04/21/2023 Office Visit Orthopedics Zack Teague, DO [address] [place] [address] 04/29/2023 Home Visit [facility] Simi Martinez PA-C [address] [place] [address] 05/16/2023 Office Visit Family Medicine Galdino Andujar, DO [address] [facility], [place] [address] 08/08/2023 Nurse Only [employer], Nurse Annual Wellness Visit [address] [place] [address] Scheduled Procedures Name Priority Associated Diagnoses Date/Ti [...] Additional history exists CKD HGB USE SMARTSET 14594 11/01/202311/01, 11/01/2022, 06/29/2022, Additional history exists DIABETES-FOOT EXAM 11/01/2023 11/01/2022, 0 01/07/2022, 01/14/2021, Additional history exists TSH 11/01/2023 11/01/2022, 12/25, 12/25/2020, Additional history exists CKD PHOS USE SMARTSET 45205 02/12/202401/24, 01/07/2022, 03/12/2021, Additional history exists Depression [...] Documents on File Type Date Recorded Patient Farmworker Expl anation POLST 03/19/2020 4:25 PM POLST [...] the patient have Health Care Power of Sign Fabricator? No Healthcare Agents on File Name Relationship Healthcare Agent Relationship Communication Galdino Camp Other - (no specific identity) Health Care Power of Sign Fabricator Princess Allen Other - (no specific identity) Health Care Power of Sign Fabricator Care Teams Forming Department End Finder Relationship Specialty Start Date End Date Galdino Andujar, DO [address] [place] [address] PCP - General Internal Medicine 01/07/22 documented as of this encounter
--- OUTSIDE RECORDS SUMMARY | 2023-06-01 04:12 | External Medical Summary | Summary of Care ---
Author Name Unknown Organization [facility] Address [address] [place] [address] Phone [phone] Care Team Providers Care Tour Director Name Role Phone Galdino Andujar DO Primary Care Provider [phone] Reason for Visit * Reason Comments [facility]: Acute Back pain Encounter Details Date Type Department Care Team Description 03/12/2023 Home Visit [facility], [facility] [address] [facility] [place] [address] [facility] [address] [facility] [place] [address] Allergies Active Allergy Reactions Severity Noted Date [...] 0 0 Active Blood Glucose Monitoring Suppl ([place] NetworksTOUCH ULTRA 2) w/Device KIT Use to test [...] goal of less than 8.0% ([facility]) Take 1 Tablet (500 mg) [...] hemoglobin A1c goal of 7.0%-8.0% ([facility]) Inject 40-45 units with meals [...] 1 and CKD stage 3 ([facility]),Chronic diastolic congestive heart failure ([facility]) TAKE 1 TABLET BY MOUTH [...] 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/31/2021 Atherosclerosis of gal[place] coronary arter 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 12/31/2021 [...] Plan: Continue tramadol Abnormality of gait 02/02/2016 [place] filter in place 08/19/2014 History of pulmonary [...] mRNA, LNP-s, No Pre serve, 2-Dose Series ([employer]) 01/08/2021,12/18/2020 COVID-19, LNP-s, No Preserve , Navarro-sucrose, Ages 12+ (Pfizer) 2022,10/01/2021 Pneumococcal Conjugate Vacci ne, 20-valent ([id number]) 03/12/2022 Pneumococcal Polysaccharide PPV23 (Pneumovax) 08/22/2009,06/15/2006 Seasonal [...] 03/12/2023 9:00 AM EDT [facility] Library Clerk Talking BooksBanking Pin Adjuster Visit Date: 03/12/2023 Time: 9:00 AM Name: Stephanie Camp : 1955 Situation: NAR[facility] 1 Background: 07/16 - - [facility] Admission - falls, acute on chronic CHF, acute on chronic respiratory failure,cellulitis R hand d/t cat bite 07/29 - 03/17 - [facility] - acute on chronic resp fx with hypoxia, UTI, chronic diastolic HF, d/c home on doxycycline and cefdinir 09/06/22 - Acute [facility] HV -DTP initiated, keflex for cellulitis, urine culture was negative 09/19/22 - [facility] ER - abdominal pain, CT negative, no changes 10/11/22 -Acute visit forrespiratory viral swab - negative 10/25/22 - Acute call to [facility] - n/v/d, vertigo 01/14/23 - prednisone x5 days for sciatica (by pcp) Living Situation:alone in senior [facility] building Medication Management:pill packs from [facility] ACP:updated12/24/22 [facility] Provider Visit:08/10/22, 11/22/22 - message to scheduling to get pt scheduled to see Simi Martinez 03/07 - - [facility] - Back pain, cellulitis Assessment: ''I told them my legs always look like this'' Was prescribed Keflex for 4 days after d/c Baclofen increased to 10mg bid prn (was 5mg bid prn) Gabapentin increased to 600mg tid Started on cymbalta 90mg daily Was seen by Psych inpt d/t passive SI d/t pain - denies SI during HV Has not been able to seed cone picker Rxs 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 Psychiatric: Mood and Affect: Mood normal. [facility]-10 Completed this Visit: Yes. [facility]-10: Reason Completed: Status post ED visit/hospital admission [facility]-10 Interventions: Fall education provided, reviewed/provided Fall brochure Treatment/Plan: Receives [facility] Ortho referral placed 01/25/23 for back pain management INSTRUCT AT EACH VISIT: CALL [facility] PRIOR TO GOING TO ER FOR ANY REASON USES PILL PACKS FROM [employer] [facility]Y WT as of 08/03/22 - 313lbs Frequent UTI's - typically asymptomatic until has fever, has standing order for urine culture Ambulate with roller walker at ALL times o2 2lnc at rest, 4Lnc with activity - [facility] [phone] WEAR O2 AT ALL TIMES OR BECOMES [...] Visit Family Medicine Galdino Andujar, DO [address] [place] [address] 03/18/2023 Telemedicine [facility] Lucia Garcia CRNP [address] [address] Jessica Rios, [facility] [address] [place] [id number] 03/23/2023 Home Visit [facility] Brooke Jose RN [address] [place] [address] 03/30/2023 Hospital Encounter Surgery Raj Ahn, DO [address] [place] [address] 03/30/2023 Surgery Surgery Raj Ahn, DO [address] [place] [address] INJECTION SACROILIAC JOINT 04/06/2023 Home Visit [facility] Brooke Jsoe RN [address] [place] [address] 04/21/2023 Office Visit Orthopedics Zack Teague, DO [address] [place] [address] 04/29/2023 Home Visit [facility] Simi Martinez PA-C [address] [place] [address] 05/16/2023 Office Visit Family Medicine Galdino Andujar, DO [address] [facility], [place] [address] 08/08/2023 Nurse Only Ancillary College, Nurse Annual Wellness Visit [address] [facility] [address] [facility] [place] [address] Scheduled Procedures Name Priority Associated Diagnoses Date/Ti [...] Additional history exists CKD HGB USE SMARTSET 65834 11/01/202311/01, 11/01/2022, 06/29/2022, Additional history exists DIABETES-FOOT EXAM 11/01/2023 11/01/2022, 0 01/07/2022, 01/14/2021, Additional history exists TSH 11/01/2023 11/01/2022, 12/25, 12/25/2020, Additional history exists CKD PHOS USE SMARTSET 97233 02/12/202401/24, 01/07/2022, 03/12/2021, Additional history exists Depression [...] Documents on File Type Date Recorded Patient Reprographics Associate Expl anation POLST 03/19/2020 4:25 PM [...] the patient have Health Care Power of Tool Storage Attendant? No Healthcare Agents on File Name Relationship Healthcare Agent Relationship Communication Galdino Camp Other - (no specific identity) Health Care Power of Tool Storage Attendant Princess Allen Other - (no specific identity) Health Care Power of Tool Storage Attendant Care Teams Tour Director Relationship Specialty Start Date End Date Galdino Andujar, DO [address] [place] [address] PCP - General Internal Medicine 01/07/22 documented as of this encounter
--- OUTSIDE RECORDS SUMMARY | 2023-06-01 04:12 | External Medical Summary | Summary of Care ---
Author Name Unknown Organization [facility] Address [address] [place] [address] Phone [phone] Care Team Providers Care Energy Director Name Role Phone Galdino Andujar DO Primary Care Provider [phone] Reason for Visit * Reason Onset Date Comments FYI 03/04/2023 transmitter Encounter Details Date Type Department Care Team Description 03/04/2023 Telephone Family Practice [address] [facility] [place] [address] [place] [address] Galdino Andujar DO [address] [place] [address] FYI (transmitter) Allergies Active Allergy Reactions Severity Noted Date [...] as of this encounter (statuses as of 03/08/2023) Medications Medication Sig Dispensed Refills Start Date End Date Status ONETOUCH DELICA LANCETS 33G MISC Check blood sugars 3-4 times daily 180 Each 5 08/01/2018 Active oxygen GASIndications:ELISSA (obstructive sleep apnea) Use 3 L/min(Oxygen) as directed continuous. 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:Golf Ball Inspector 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/31/2021 Atherosclerosis of [place] coronary arter 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 12/31/2021 [...] Plan: Continue tramadol Abnormality of gait 02/02/[address] [place] [address] 08/19/2014 History of pulmonary [...] as of this encounter (statuses as of 03/08/2023) Resolved Problems Problem Noted Date Resolved Date [...] Hypervolemia 07/13/2018 08/26/2018 Heparin-induced thrombocytopenia 06/12/2018 08/26/2018 ESLIE (acute kidney injury) 06/12/20182017 Uncontrolled type 2 [...] as of this encounter (statuses as of 03/08/2023) Immunizations Name Administration Dates Next Due COVID-19 mRNA, LNP-s, No Pre serve, 2-Dose Series (Pfizer) 01/08/2021,12/18/2020 COVID-19, LNP-s, No Preserve , Navarro-sucrose, Ages 12+ (Pfizer) 2022,10/01/2021 Pneumococcal Conjugate Vacci ne, 20-valent ([id number]) 03/12/2022 Pneumococcal Polysaccharide PPV23 (Pneumovax) 08/22/2009,06/15/2006 Seasonal [...] Miscellaneous Notes * Telephone Encounter - Frances Leonard Duong [facility] - 03/08/2023 2:18 PM EDT [phone] - Jese Called and spoke to patient access representative at [facility]. They report a transmitter was shipped via Fedex on 02/24 and delivered on 02/26. Left at front door. Tracking shows a picture showing dexcom boxw/ 3 boxes on patient's front porch. If she can't find it at home, needs to call customer service and report it stolen and then they can potentially send another. Patient currently admitted. Will follow up with phone call upon discharge, also sent to [facility] transplant case manager. Lois Lopez D, BCACP Clinical Pharmacist [facility] 03/08/2023, 3:07 PM Ph. [phone] * Telephone Encounter - Frances Duong [facility] - 03/04/2023 4:44 PM EDT Called and spoke to patient. Still hasn't gotten transmitter, she was on hold with [employer] today for 20 minutes and didn't get anyone. I called and left message for patient to be sent transmitter. Follow up Tuesday if no response/hospital receptionist of transmitter sooner. Lois Lopez, RITUCP Clinical Pharmacist [facility] 03/04/2023, 4:45 PM Ph. [phone] * Telephone Encounter - ELISSA Snider - 03/04/2023 3:39 PM EDT Called in, and she still has not received her transmitter from [employer] Please call documented in this encounter Plan of Treatment Upcoming Encounters Date Type Specialty Care Team Description 03/09/2023 Hospital Encounter Surgery DavonteRaj soto, DO [address] [place] [address] 03/16/2023 Imaging Radiology 04/06/2023 Home Visit [facility] Brooke Jose, RN [address] [place] [address] 04/07/2023 Office Visit Orthopedics Zack Teague, DO [address] [place] [address] 04/29/2023 Home Visit [facility] Simi Martinez PA-C [address] [place] [address] 05/16/2023 Office Visit Family Medicine Galdino Andujar, DO [address] [place] [address] 08/08/2023 Nurse Only Ancillary College, Nurse Annual Wellness Visit [address] [place] [address] Scheduled Procedures Name Priority Associated Diagnoses Date/Ti me INJECTION SACROILIAC JOINT Inflammation of sacroiliac joint (HCC) COLONOSCOPY FLEXIBLE PROXIMA L DIAGNOSTIC Recall Colon cancer screening Health Maintenance [...] Additional history exists CKD HGB USE SMARTSET 64407 11/01/202311/01, 11/01/2022, 06/29/2022, Additional history exists DIABETES-FOOT EXAM 11/01/2023 11/01/2022, 0 01/07/2022, 01/14/2021, Additional history exists TSH 11/01/2023 11/01/2022, 12/25, 12/25/2020, Additional history exists CKD PHOS USE SMARTSET 21199 02/12/202401/24, 01/07/2022, 03/12/2021, Additional history exists Depression [...] Documents on File Type Date Recorded Patient Milling Supervisor Expl anation POLST 03/19/2020 4:25 PM [...] Code 08/21/2009 3:22 PM 09/06/2009 4:03 PM Th is order reflects the patients wishes and were consensually agreed upon. Question Answer Comments Discussion of Advance Directives occurred with: Patient Does the patient have a Living Will? No Does the patient have Health Care Power of Orthodontist? No Healthcare Agents on File Name Relationship Healthcare Agent Relationship Communication Galdino Camp Other - (no specific identity) Health Care Power of Orthodontist Princess Allen Other - (no specific identity) Health Care Power of Orthodontist Care Teams Energy Director Relationship Specialty Start Date End Date Galdino Andujar, DO [address] [place] [address] PCP - General Internal Medicine 01/07/22 documented as of this encounter
--- OUTSIDE RECORDS SUMMARY | 2023-06-01 04:12 | External Medical Summary | Summary of Care ---
Author Name Unknown Organization [facility] Address [address] [place] [address] Phone [phone] Care Team Providers Care Public Health Microbiologist Name Role Phone Galdino Andujar DO Primary Care Provider [phone] Reason for Visit * Reason Onset Date Comments Advice 03/07/2023 Admission Encounter Details Date Type Department Care Team Description 03/07/2023 Telephone Family Practice [address] [place] [address] [place] [address] Galdino Andujar DO [address] [place] [address] Advice (Admission) Allergies Active Allergy Reactions Severity Noted Date [...] as of this encounter (statuses as of 03/07/2023) Medications Medication Sig Dispensed Refills Start Date End Date Status ONETOUCH DELICA LANCETS 33G MISC Check blood sugars 3-4 times daily 180 Each 5 08/01/2018 Active oxygen GASIndications:ELISSA (obstructive sleep apnea) Use 3 L/min(Oxygen) as directed continuous. 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:Director Of Community Center 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 1 Each 0 04/08/2020 Active Blood Glucose Monitoring Suppl ([employer] DevicesTOUCH ULTRA 2) w/Device KIT Use to test [...] hemoglobin A1c goal of less than 8.0% ([facility]) Take 1 Tablet (500 mg) [...] mellitus with hemoglobin A1c goal of 7.0%-8.0% ([facility]) Inject 40-45 units with meals [...] NYHA class 1 and CKD stage 3 ([facility]),Chronic diastolic congestive heart failure ([facility]) TAKE 1 TABLET BY MOUTH [...] as of this encounter (statuses as of 03/07/2023) Active Problems Problem Noted Date Type 2 [...] as of this encounter (statuses as of 03/07/2023) Resolved Problems Problem Noted Date Resolved Date [...] as of this encounter (statuses as of 03/07/2023) Immunizations Name Administration Dates Next Due COVID-19 mRNA, LNP-s, No Pre serve, 2-Dose Series (Pfizer) 01/08/2021,12/18/2020 COVID-19, LNP-s, No Preserve , Navarro-sucrose, Ages 12+ (Pfizer) 2022,10/01/2021 Pneumococcal Conjugate Vacci ne, 20-valent ([id number]) 03/12/2022 Pneumococcal Polysaccharide PPV23 (Pneumovax) 08/22/2009,06/15/2006 Seasonal [...] Telephone Encounter - Galdino Andujar DO - 03/07/2023 9:17 AM EDT Management per Hospitalists at [facility]. * Telephone Encounter - Shira Gross LPN - 03/07/2023 9:11 AM EDT Patient states she is admitted myself, became suicidal and called EMS. States they are trying to get the pain under control. * Telephone Encounter - ELISSA Snider - 03/07/2023 8:46 AM EDT Patient called in this AM Would like Shira to call her back, as she is in [facility] documented in this encounter Plan of Treatment Upcoming Encounters Date Type Specialty Care Team Description 03/07/2023 PulmDiagnostic Pulmonary Function [place], Pul Function Tech [address] [place] [address] 03/09/2023 Hospital Encounter Surgery Raj Ahn, [address] [place] [address] 03/09/2023 Surgery Surgery Raj Ahn, [address] [place] [address] INJECTION SACROILIAC JOINT 03/16/2023 Imaging Radiology 04/06/2023 Home Visit [facility] Brooke Jose, RN [address] [place] [address] 04/07/2023 Office Visit Orthopedics Zack Teague DO [address] [place] [address] 04/29/2023 Home Visit [facility] Simi Martinez PA-C [address] [place] [address] 05/16/2023 Office Visit Family Medicine Galdino Andujar, [address] [facility], [place] [address] 08/08/2023 Nurse Only Ancillary College, Nurse Annual Wellness Visit [address] [facility] [address] [place] [address] Scheduled Procedures Name Priority Associated Diagnoses Date/Ti me INJECTION SACROILIAC JOINT Inflammation of sacroiliac joint (HCC) 03/09/2023 9:00 AM EDT COLONOSCOPY FLEXIBLE PROXIMAL DIAGNOSTIC [...] Additional history exists CKD HGB USE SMARTSET 09110 11/01/202311/01, 11/01/2022, 06/29/2022, Additional history exists DIABETES-FOOT EXAM 11/01/2023 11/01/2022, 0 01/07/2022, 01/14/2021, Additional history exists TSH 11/01/2023 11/01/2022, 12/25, 12/25/2020, Additional history exists CKD PHOS USE SMARTSET 38713 02/12/202401/24, 01/07/2022, 03/12/2021, Additional history exists Depression [...] Documents on File Type Date Recorded Patient Kick Press Setter Expl anation POL 03/19/2020 4:25 PM POLST Latest Code Status [...] the patient have Health Care Power of Planner? No Healthcare Agents on File Name Relationship Healthcare Agent Relationship Communication Galdino Camp Other - (no specific identity) Health Care Power of Planner Princess Staplesfany Other - (no specific identity) Health Care Power of Planner Care Teams Public Health Microbiologist Relationship Specialty Start Date End Date Galdino Andujar, DO [address] [place] [address] PCP - General Internal Medicine 01/07/22 documented as of this encounter
--- OUTSIDE RECORDS SUMMARY | 2023-06-01 04:13 | External Medical Summary | Summary of Care ---
Author Name Unknown Organization [facility] Address [address] [place] [address] Phone [phone] Care Team Providers Care Tub Rider Name Role Phone Galdino Andujar DO Primary Care Provider [phone] Reason for Visit * Reason Onset Date Comments [facility]: Maintenance 02/25/2023 Encounter Details Date Type Department Care Team Description 02/25/2023 Scheduled Telephone [facility], [facility] [address] [place] [address] Coordinator, [facility] [address] [place] [address] Allergies Active Allergy Reactions Severity Noted Date Comments Bupropion High 12/26/2021 Other reaction(s): Recurrent falls as per patient Codeine 07/08/2014 hallucination Pollen 05/18/2019 Heparin 09/04/2009 Heparin Induced Thrombocytopenia Hydrocodone Neuro complications (Please comment) 07/28/2020 Empagliflozin Other (Please comment) Medium 05/17/2018 3 yeast infections in 6 weeks after starting Morphine And Related 09/16/1997 Hallucinations Tetanus Toxoid Other (Please comment) 06/15/2011 Passed out documented as of this encounter (statuses as of 02/25/2023) Medications Medication Sig Dispensed Refills Start Date End Date Status ONETOUCH DELICA LANCETS 33G MISC Check blood sugars 3-4 times daily 180 Each 5 08/01/2018 Active oxygen GASIndications:ELISSA (obstructive sleep apnea) Use 3 L/min(Oxygen) as directed continuous. 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:Director Of Sustainable Design zahra diastolic congestive heart failure (HCC) If [...] mellitus with hemoglobin A1c goal of 7.0%-8.0% ([facility]) Inject 40-45 units with meals [...] NYHA class 1 and CKD stage 3 ([facility]),Chronic diastolic congestive heart failure (HCC) [...] or Pain, Moderate. 0 02/11/2023 Active Gabapentin 100 MG Oral Capsule (Neurontin)Indicatio ns:Fibromyalgia Take 1 Capsule by mouth in the morning and 1 Capsule at noon and 1 Capsule before bedtime. 270 Capsule 3 02/11/2023 Active Hospital, Clinic, or Other Facility Administered Medication Ordered Dose Route Frequency Start Date End Date Status Albuterol Sulfate (Proventil) (2.5 MG/3ML) 0.083% inhalation solution 2.5 mgIndications:Chronic hypoxemic respiratory failure (HCC),SOB (shortness of breath),Small airways disease,ILD (interstitial lung disease) ([facility]) 2.5 mg NEBULIZER PRN 01/07/2023 01/07/2024 Active Albuterol Sulfate (Proventil) (5 MG/ML) 0.5% *conc* inhalation solution 2.5 mgIndications:Chronic hypoxemic respiratory failure (HCC),SOB (shortness of breath),Small airways disease,ILD (interstitial lung disease) (HCC) 2.5 mg NEBULIZER PRN 01/07/2023 01/07/2024 Active documented as of this encounter (statuses as of 02/25/2023) Active Problems Problem Noted Date Type 2 [...] 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/31/2021 Atherosclerosis of [place] coronary arter 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 12/31/2021 [...] Plan: Continue tramadol Abnormality of gait 02/02/[address] 08/19/2014 History of pulmonary [...] as of this encounter (statuses as of 02/25/2023) Resolved Problems Problem Noted Date Resolved Date [...] as of this encounter (statuses as of 02/25/2023) Immunizations Name Administration Dates Next Due COVID-19 mRNA, LNP-s, No Pre serve, 2-Dose Series (Pfizer) 01/08/2021,12/18/2020 COVID-19, LNP-s, No Preserve , Navarro-sucrose, Ages 12+ (Pfizer) 2022,10/01/2021 Pneumococcal Conjugate Vacci ne, 20-valent ([id number]) 03/12/2022 Pneumococcal Polysaccharide PPV23 (Pneumovax) 08/22/2009,06/15/2006 Seasonal [...] encounter Miscellaneous Notes * Telephone Encounter - Dain Ireland DO - 02/25/2023 11:15 AM EDT [facility] Phone Encounter Reviewed phone message. I agree w/ the advice offered via phone by our intake nursing team. Please let me know via encounter or TT message if there is any change Thank you in advance, I appreciate it. Dain Ireland DO [facility] Epic Willow Specialist - [facility] 02/25/2023 * Telephone Encounter - Mena Cornejo RN - 02/25/2023 10:56 AM EDT Images from the original note were not included. [facility] Telephonic Nurse Follow-Up Call [facility] Subprogram: Primary Care at Home Follow Up Call Type: 24 hour follow up Acute issue requiring follow-up call: Other: yeast infection Objective: 02/11/2023 10:52 AM 02/02/2023 4:29 PM 01/25/2023 1:20 PM 12/24/2022 9:23 AM 12/08/2022 2:34 PM VITALS ACROSS ENCOUNTERS BP 122/70 115/68 134/76 128/54 116/70 Pulse 84 93 105 92 94 Weight 144.7 kg 142 kg 142.4 kg 142.4 kg 143.5 kg BMI 52.64 BMI 53.07 kg/m2 52.09 kg/m2 52.25 kg/m2 52.25 kg/m2 52.64 kg/m2 No results found for: BLOOD, PROTEIN, ESTERASE, WBC, NITRITE, QUANT URINE CULTURE GROWTH No results found for: WBC AUTO - [facility], HGB - [facility], PLATELET AUTO - [facility] Lab Results Component Value Date CREATININE - [facility] 1.7 (H) 12/08/2022 ESTIMATED GLOMERULAR FILTRATION RATE - [facility] 33 (L) 12/08/2022 No results found for: PRO BNP, LEFT VENTRICULAR EJECTION FRACTION Remote Patient Monitoring: NONE Oxygen Needs: NO CHANGE from baseline supplemental oxygen needs DME Needs: NO DME needs identified Medications: New medication(s) added: DIFLUCAN- has not started med- awaiting delivery of same today Subjective: Condition Status: New symptoms- abdominal pain Current Concerns: States she is awaiting delivery of Diflucan ordered on 02/24/2023- no improvement in yeast infection symptoms. Has sciatica- chronic- constant pain 07/05 -taking Ibuprofen for same. - states she know she is notsupposed to take same due to CKD. States "it is the only thing that helps me" States pain in going into her buttocks and making her legs weak. States she is scheduled for injection pain mgmt Dr Ahn 03/09/2023- States appt was moved up from03/16/2023- chart reviewed- appt not listed for future. Instructed patient to contact pain mgmt to confirm appt and see if can be seen sooner due to increased pain. Also can discuss pain medication with provider due to increased pain New complaint: Intermittent pain in lower abdomen which started last night - dull ache, occasional "stabs her". Denies abdominal distention/firmness- pain level 03/05. States "I think it may be from yeast infection". Instructed patient to take Diflucan today once she receives the medication. Disposition: Routed to [facility] and/or [facility] at Home Care Team for further advice Also scheduled for f/u call on 02/26 Future Visits Scheduled: Future Appointments-next 60 days Date/Time Provider Specialty Dept Phone 02/25/2023 2:00 PM [facility] Sales 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 [facility] [phone] 02/26/2023 11:30 AM Nurse [facility] [phone] 02/28/2023 1:00 PM Pharmacist [address] [place] [address] Medicine [phone] 02/28/2023 4:00 PM Brooke Jose RN [facility] [phone] 03/07/2023 10:30 AM Pulm Function Tech [facility] Pulmonary Function [phone] 03/16/2023 2:00 PM (Arrive by 1:45 PM) [email or web address] [facility] Radiology [phone] 04/07/2023 1:15 PM (Arrive by 1:00 PM) Zack Teague, Orthopedics [phone] 04/29/2023 4:00 PM Simi Martinez PA-C [facility] [phone] 05/16/2023 1:00 PM (Arrive by 12:45 PM) Galdino Andujar DO [facility] Medicine [phone] 08/08/2023 2:00 PM Nurse Annual Wellness Visit [address] [place] [address] Ancillary [phone] Mena Cornejo, RN documented in this encounter Plan of Treatment Upcoming Encounters Date Type Specialty Care Team Description 02/26/2023 Scheduled Telephone [facility], Nurse Virginia Hale [address] [place] [address] 02/28/2023 Telemedicine [facility], Pharmacist [address] [place] [address] [facility] [place] [address] 02/28/2023 Home Visit [facility] Brooke Jose RN [address] [place] [address] 03/07/2023 PulmDiagnostic Pulmonary Function [place], Pulm Function Tech [address] [place] [address] 03/09/2023 Hospital Encounter Surgery Raj Ahn, [address] [place] [address] 03/09/2023 Surgery Surgery Raj Ahn DO [address] [place] [address] INJECTION SACROILIAC JOINT 03/16/2023 Imaging Radiology 04/07/2023 Office Visit Orthopedics Zack Teague DO [address] [place] [address] 04/29/2023 Home Visit [facility] Simi Martinez PA-C [address] [place] [address] 05/16/2023 Office Visit Family Medicine Galdino Andujar, DO [address] [place] [address] 08/08/2023 Nurse Only Ancillary [employer], Nurse Annual Wellness Visit [address] [place] [address] Scheduled Procedures Name Priority Associated Diagnoses Date/Ti me INJECTION SACROILIAC JOINT Inflammation of sacroiliac joint (HCC) 03/09/2023 9:00 AM EDT COLONOSCOPY FLEXIBLE PROXIMAL DIAGNOSTIC Recall Colon cancer screening Health Maintenance Due Date Last Done Comments Cologuard 2000 Fecal Occult Blood Test 2000 Sigmoidoscopy 2000 COVID-19 Vaccine (5 - Booster for Pfizer series) 06/08/2022 2022, 10/01/2021, 01/08/2021, Additional history exists Mammogram 02/11/2023 02/11/2022, 01/0 02/2021, 07/10/2019, Additional history exists DIABETES-EYE EXAM 05/24/2023 05/24/2022, , 04/07/2020, Additional history exists GFR 06/10/2023 12/08/2022, 02/0 02/2023, 09/13/2022, Additional history exists HbA1c 08/14/2023 02/11/2023, 02/0 02/2023, 05/12/2022, Additional history exists Albumin/Creatinine Ratio 11/01/20232 023, 01/07/2022, 05/24/2019, Additional history exists CKD HGB USE SMARTSET 85739 11/01/202311/01, 11/01/2022, 06/29/2022, Additional history exists DIABETES-FOOT EXAM 11/01/2023 11/01/2022, 0 01/07/2022, 01/14/2021, Additional history exists TSH 11/01/2023 11/01/2022, 12/25, 12/25/2020, Additional history exists CKD PHOS USE SMARTSET 05647 02/12/202401/24, 01/07/2022, 03/12/2021, Additional history exists Depression [...] Documents on File Type Date Recorded Patient Automated Equipment Engineer Technician Expl anation POLST 03/19/2020 4:25 PM [...] the patient have Health Care Power of Data Mining Analyst? No Healthcare Agents on File Name Relationship Healthcare Agent Relationship Communication Galdino Camp Other - (no specific identity) Health Care Power of Data Mining Analyst Princess Allen Other - (no specific identity) Health Care Power of Data Mining Analyst Care Teams Tub Rider Relationship Specialty Start Date End Date Galdino Andujar, DO [address] [place] [address] PCP - General Internal Medicine 01/07/22 documented as of this encounter
--- OUTSIDE RECORDS SUMMARY | 2023-06-01 04:13 | External Medical Summary | Summary of Care ---
Author Name Unknown Organization [facility] Address [address] [place] [address] Phone [phone] Care Team Providers Care Liner Replacer Name Role Phone Galdino Andujar DO Primary Care Provider [phone] Reason for Visit * Reason Onset Date Comments [facility]: Acute 02/24/2023 Encounter Details Date Type Department Care Team Description 02/24/2023 Telephone [facility], [facility] [address] [facility] [place] [address] [facility], Nurse [facility] [address] [place] [address] [facility]: Acute Allergies Active Allergy Reactions Severity Noted Date [...] as of this encounter (statuses as of 02/24/2023) Medications Medication Sig Dispensed Refills Start Date End Date Status ONETOUCH DELICA LANCETS 33G MISC Check blood sugars 3-4 times daily 180 Each 5 08/01/2018 Active oxygen GASIndications:ELISSA (obstructive sleep apnea) Use 3 L/min(Oxygen) as directed continuous. 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:Receivables Specialist zahra diastolic congestive heart failure (HCC) If [...] goal of 7.0%-8.0% ([facility]) Inject 40-45 units with meals + sliding [...] NYHA class 1 and CKD stage 3 ([facility]),Chronic diastolic congestive heart failure (HCC) TAKE 1 [...] before bedtime. 270 Capsule 3 02/11/2023 Active Fluconazole 150 MG Oral Tablet (Diflucan) Take 1 Tablet by mouth once for 1 dose. 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/31/2021 Atherosclerosis of [place] coronary arter 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 12/31/2021 [...] as of this encounter (statuses as of 02/24/2023) Resolved Problems Problem Noted Date Resolved Date [...] as of this encounter (statuses as of 02/24/2023) Immunizations Name Administration Dates Next Due COVID-19 mRNA, LNP-s, No Pre serve, 2-Dose Series ([facility]) 01/08/2021,12/18/2020 COVID-19, LNP-s, No Preserve , Navarro-sucrose, Ages 12+ (Pfizer) 2022,10/01/2021 Pneumococcal Conjugate Vacci ne, 20-valent ([id number]) 03/12/2022 Pneumococcal Polysaccharide PPV23 (Pneumovax) 08/22/2009,06/15/2006 Seasonal [...] encounter Miscellaneous Notes * Addendum Note - Al Mac PA-C - 02/24/2023 4:29 PM EDTAddended by: AL MAC on: 02/24/2023 04:29 PM Modules accepted: Orders * Telephone Encounter - Al Mac PA-C - 02/24/2023 4:27 PM EDT [facility] Remote Medical Command Phone Encounter Thank you Demetra for your assistance in the care of this patient today. Unfortunately patients with diabetes are higher risk for Karmen infections. Recommendations: Diflucan 150 mg x 1 ordered. This note was prepared with the help of fluency and if there is any mis-spelled words , sentences or something which doesn't represent the content of the subject that could be technical error and please refer to the author for clarification. * Telephone Encounter - Demetra Berumen RN - 02/24/2023 3:46 PM EDT [facility] manager business planning Acute Call Date: 02/24/2023 Time: 3:46 PM Name: Stephanie Camp : 1955 Caller: Stephanie Relationship to Self No chief complaint on file. HPI: Stephanie Camp is a 67 year old female that is calling [facility] to report yeast infection Nursing Assessment: Patient stated she started with yeast infection symptoms 3 days ago. Symptoms of vaginal itching, burning and "cottage cheese" like discharge. Cannot see if there is any redness. She said she has "been down this road before". She said she was started on Farxiga on 02/11/23 and it was discontinued yesterday. She said she thinks it is from this medication. Yeast infection is a side effect. Patient was on Jardiance in the past but was discontinue due to it caused yeast infections. Patient's chief complaint for this call: Other, describe Yeast infection Pain Denies pain Baseline Assessment Able to performing ADLs at baseline (walking, daily tasks, etc.): No Chief Complaint is related to a chronic condition: Unknown Patient prescribed oxygen? Yes, 3L/min Patient has been ordered DME equipment (assistive devices, respiratory equipment, etc.): Yes Describe DME devices: Oxygen, nebulizer, Cpap, walker Patient is using DME device as directed: Yes Medication Reconciliation: (See medication list) Received flu shot this season: Yes Taking medication as ordered: Yes Medications ordered/taking to treat reason for call: No Heart failure symptoms: No COPD exacerbation symptoms: No Reinforcement Education: Take all medications as ordered Drink plenty of fluids Good perineal care. Cleanse from front to back Treatment/Plan: (need to report) Level of call: Non-Acute Recommended treatment plan: Follow up phone calls 24/48 hrs Clinical advice given over the phone Routing to care team to review and make recommendations if warranted. *Patient used [facility] in [place]. Call back instructions provided to patient. Demetra Berumen. L[facility] RN [phone] documented in this encounter Plan of Treatment Upcoming Encounters Date Type Specialty Care Team Description 02/25/2023 Scheduled Telephone [facility] Bituminous Distributor Operator, [facility] [address] [place] [address] 02/26/2023 Scheduled Telephone [facility], Nurse [facility] [address] [place] [address] 02/28/2023 Telemedicine [facility], Pharmacist [address] [address] 02/28/2023 Home Visit [facility] Brooke Jose RN [address] [facility] [place] [address] 03/07/2023 PulmDiagnostic Pulmonary Function [place], Pul Function Tech 2 [address] [place] [address] 03/09/2023 Hospital Encounter Surgery Raj Ahn, DO [address] [place] [address] 03/09/2023 Surgery Surgery CouRaj soto, DO [address] [place] [address] INJECTION SACROILIAC JOINT 03/16/2023 Imaging Radiology 04/07/2023 Office Visit Orthopedics Zack Teague, DO [address] [place] [address] 04/29/2023 Home Visit [facility] Simi Martinez PA-C [address] [place] [address] 05/16/2023 Office Visit Family Medicine Galdino Andujar, DO [address] [place] [address] 08/08/2023 Nurse Only Ancillary College, Nurse Annual Wellness Visit [address] [place] [address] Scheduled Procedures Name Priority Associated Diagnoses Date/Ti [...] Additional history exists CKD HGB USE SMARTSET 68051 11/01/202311/01, 11/01/2022, 06/29/2022, Additional history exists DIABETES-FOOT EXAM 11/01/2023 11/01/2022, 0 01/07/2022, 01/14/2021, Additional history exists TSH 11/01/2023 11/01/2022, 12/25, 12/25/2020, Additional history exists CKD PHOS USE SMARTSET 31076 02/12/202401/24, 01/07/2022, 03/12/2021, Additional history exists Depression [...] Documents on File Type Date Recorded Patient Fine Wire Drawer Expl anation POLST 03/19/2020 4:25 PM POLST [...] the patient have Health Care Power of Spinner Hydraulic? No Healthcare Agents on File Name Relationship Healthcare Agent Relationship Communication Galdino Camp Other - (no specific identity) Health Care Power of Spinner Hydraulic Princess Other - (no specific identity) Health Care Power of Spinner Hydraulic Care Teams Liner Replacer Relationship Specialty Start Date End Date Galdino Andujar, [address] [place] [address] PCP - General Internal Medicine 01/07/22 documented as of this encounter
--- OUTSIDE RECORDS SUMMARY | 2023-06-01 04:13 | External Medical Summary | Summary of Care ---
Author Name Unknown Organization [facility] Address [address] [place] [address] Phone [phone] Care Team Providers Care House Furnishings Supervisor Name Role Phone Galdino Andujar DO Primary Care Provider [phone] Reason for Visit * Reason Comments [facility]: Maintenance Encounter Details Date Type Department Care Team Description 03/01/2023 Home Visit [facility], [facility] [address] [place] [address] Brooke Jose, RN [address] [place] [address] Allergies Active Allergy Reactions Severity Noted Date [...] as of this encounter (statuses as of 03/01/2023) Medications Medication Sig Dispensed Refills Start Date End Date Status ONETOUCH DELICA LANCETS 33G MISC Check blood sugars 3-4 times daily 180 Each 5 08/01/2018 Active oxygen GASIndications:ELISSA (obstructive sleep apnea) Use 3 L/min(Oxygen) as directed continuous. 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:Hand Bender 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 1 Each 0 04/08/2020 Active Blood Glucose Monitoring Suppl (BitrockrTOUCH ULTRA 2) w/Device KIT Use to test [...] hemoglobin A1c goal of 7.0%-8.0% ([facility]) Inject 40-45 units with meals [...] 1 and CKD stage 3 ([facility]),Chronic diastolic congestive heart failure ([facility]) TAKE 1 TABLET BY MOUTH [...] 100 MG Oral Capsule (Neurontin)Indicatio ns:Fibromyalgia Take 2 Capsules by mouth in the morning and 2 Capsules at noon and 2 Capsules before bedtime. 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/31/2021 Atherosclerosis of [place] coronary arter 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 12/31/2021 [...] Plan: Continue tramadol Abnormality of gait 02/02/[address] [address] 08/19/2014 History of pulmonary [...] as of this encounter (statuses as of 03/01/2023) Resolved Problems Problem Noted Date Resolved Date [...] as of this encounter (statuses as of 03/01/2023) Immunizations Name Administration Dates Next Due COVID-19 mRNA, LNP-s, No Pre serve, 2-Dose Series (Pfizer) 01/08/2021,12/18/2020 COVID-19, LNP-s, No Preserve , Navarro-sucrose, Ages 12+ (Pfizer) 2022,10/01/2021 Pneumococcal Conjugate Vacci ne, 20-valent ([id number]) 03/12/2022 Pneumococcal Polysaccharide PPV23 (Pneumovax) 08/22/2009,06/15/2006 Seasonal [...] Sign Reading Time Taken Comments Blood Pressure 122/60 03/01/2023 12:51 PM EDT Pulse 85 03/01/2023 12:51 PM EDT Temperature 36.1 C (97 F) 03/01/2023 12:51 PM EDT Respiratory Rate 18 03/01/2023 12:51 PM EDT Oxygen Saturation 98% 03/01/2023 12:51 PM EDT 3lnc Inhaled Oxygen Concentration - - Weight 142.4 kg (314 lb) 03/01/2023 12:51 PM EDT Height - - Body Mass Index 52.25 12/08/2022 2:34 PM EDT documented in this encounter Progress Notes * Brooke Jose RN - 03/01/2023 12:45 PM EDT [facility] Monthly Visit Date: 03/01/2023 Time: 12:45 PM Name: Stephanie Camp : 1955 Situation: Return Background: [facility] Enrollment Date: 06/14/22- [facility] PMHx: Frank filter, CHF, CHF, DVT, venous insufficiency, vasculitis, CAD, carotid stenosis, chronic hypoxemic respiratory failure, ELISSA, o2 dependent, GERD, DM, Hx PE, spinal stenosis A1C 11/01/22: 6.9 [facility] OF 11/22/22, QUIT DRIVING Utilization: 07/16 - - [facility] Admission - falls, acute on chronic CHF, acute on chronic respiratory failure,cellulitis R hand d/t cat bite 07/29 - 03/17 - [facility] - acute on chronic resp fx with hypoxia, UTI, chronic diastolic HF, d/c home on doxycycline and cefdinir 09/06/22 - Acute [facility] HV -DTP initiated, keflex for cellulitis, urine culture was negative 09/19/22 - [facility] ER - abdominal pain, CT negative, no changes 10/11/22 -Acute visit forrespiratory viral swab - negative 10/25/22 - Acute call to [facility] - n/v/d, vertigo 01/14/23 - prednisone x5 days for sciatica (by pcp) Living Situation:alone in senior [facility] building Medication Management:pill packs from [facility] ACP:updated 12/24/22 [facility] Provider Visit:08/10/22, 11/22/22 - message to scheduling to get pt scheduled to see Simi Martinez Assessment: Tearful at beginning of visit States has ''had a rough couple of weeks d/t sciatica pain'' Scheduled for SI injection on 03/09/23 Taking baclofen 5mg bid, tramadol 50m q8h Also taking apap at night Dr. Andujar restarted gabapentin 100mg tid and is now in pill packs Gabapentin increased to 200mg tid Pt needs partial script for two weeks until next round of pill packs can be delivered - t/e sent toRonald Andujar Did not tolerate Farziga d/t hypotension and yeast infection bsg dropped to 84 and she was symptomatic Took diflocan - yeast infection resolved Has made insulin changes per MTM directions Is waiting for new Dexcom transmitter to be delivered - TT sent to [employer] [employer] and she will f/u Wt ranging 311 to 314lbs 314lbs this morning Lungs CTA +1 b/l le pitting edema Abdomen soft, non distended Physical Exam: LMP 03/11/2003 Pain 3 Physical Exam Constitutional: Appearance: She is obese. [...] abnormal. Psychiatric: Mood and Affect: Mood normal. Problems/Symptoms: Review of Systems Constitutional: Negative. HENT: Negative for congestion. Eyes: Negative. Respiratory: Positive for shortness of breath (AVENDAÑO at baseline). Negative for cough. Cardiovascular: Negative for chest pain, palpitations and leg swelling. Gastrointestinal: Negative for abdominal distention, abdominal pain, blood in stool, constipation, diarrhea, nausea and vomiting. Endocrine: Negative. Genitourinary: Positive for dysuria. Negative for flank pain and hematuria. Musculoskeletal: Positive for arthralgias, back pain, gait problem and myalgias. Skin: Positive for color change (L 3rd toe). Allergic/Immunologic: Negative. Neurological: Positive for weakness (d/t pain). Negative for dizziness. Hematological: Bruises/bleeds easily. Psychiatric/Behavioral: Positive for dysphoric mood. All other systems reviewed and are negative. Medication Reconciliation: (See medication list) Does patient take medications as ordered: Yes Patient Well Being: No change in living situation Requesting Electric scooter - included request in T/E to pcp [facility]-10 Completed this Visit: No. Routine visit and No falls since last visit Advanced Care Planning: No documentation, recently updated. Reinforcement/Education: Educated on home safety: Create a [...] exercises that will be right for you. Reviewed HF symptom monitoring: -Weigh self daily [...] if at night -increased fatigue or vertigo DIABETES: -Blood sugar testing schedule: Twice a [...] a day 5 servings fruit/vegetable per day Reinforced safety education and fall prevention. and Reinforced medication regimen. Timing., Dosing. and Purspose. Treatment/Plan: Receives [facility] Ortho referral placed 01/25/23 for back pain management INSTRUCT AT EACH VISIT: CALL [facility] PRIOR TO GOING TO ER FOR ANY REASON USES PILL PACKS FROM [facility] Chatous as of 08/03/22 - 313lbs Frequent UTI's - typically asymptomatic until has fever, has standing order for urine culture Ambulate with roller walker at ALL times o2 2lnc at rest, 4Lnc with activity - Care [facility] [phone] WEAR O2 AT ALL TIMES OR BECOMES [...] Increased sob Abdominal pain Home Interventions Provided: Consulted PCP/Specialist Reinforced current Plan of Care, including self-management and medication regimen Updated Exacerbation Plan Patient Needs to Remember: Call [facility] with red flags Referrals Needed: Other none Follow Up: Is there cellular connectivity/connectivity in the home? Yes Does the patient have internet in the home? Yes Patient encouraged to call the intake phone number for all urgent but not emergent issues. Is the [facility] new to [facility] within the last 30 days? No, Assess appropriateness for upcoming telehealth visits. Cancel telehealth visits & schedule home visit with care prepared foods production team member(s)as indicated. Provider is in agreement with Plan of Care: Yes Scheduled to follow up with patient 04/07/23 with RNCM, 04/29/23 with provider Brooke Jose RN 03/01/2023 12:45 PM documented in this encounter Plan of Treatment Upcoming Encounters Date Type Specialty Care Team Description 03/07/2023 PulmDiagnostic Pulmonary Function [facility] Pul Function Tech [address] [place] [address] 03/09/2023 Hospital Encounter Surgery Raj Ahn, DO [address] [place] [address] 03/09/2023 Surgery Surgery Raj Ahn, [address] [place] [address] INJECTION SACROILIAC JOINT 03/16/2023 Imaging Radiology 04/06/2023 Home Visit [facility] Brooke Jose RN [address] [place] [address] 04/07/2023 Office Visit Orthopedics Zack Teague, DO [address] [place] [address] 04/29/2023 Home Visit [facility] Simi Martinez PA-C [address] [place] [address] 05/16/2023 Office Visit Family Medicine Galdino Andujar, DO [address] [place] [address] 08/08/2023 Nurse Only [employer]illary College, Nurse Annual Wellness Visit [address] [facility] [address] [place] [address] Scheduled Procedures Name Priority Associated Diagnoses Date/Ti [...] Additional history exists CKD HGB USE SMARTSET 47975 11/01/202311/01, 11/01/2022, 06/29/2022, Additional history exists DIABETES-FOOT EXAM 11/01/2023 11/01/2022, 0 01/07/2022, 01/14/2021, Additional history exists TSH 11/01/2023 11/01/2022, 12/25, 12/25/2020, Additional history exists CKD PHOS USE SMARTSET 19940 02/12/202401/24, 01/07/2022, 03/12/2021, Additional history exists Depression [...] Documents on File Type Date Recorded Patient Band Director Expl anation POLST 03/19/2020 4:25 PM [...] the patient have Health Care Power of Human Resources Records Clerk? No Healthcare Agents on File Name Relationship Healthcare Agent Relationship Communication Galdino Camp Other - (no specific identity) Health Care Power of Human Resources Records Clerk Princess Other - (no specific identity) Health Care Power of Human Resources Records Clerk Care Teams House Furnishings Supervisor Relationship Specialty Start Date End Date Galdino Andujar, DO [address] [place] [address] PCP - General Internal Medicine 01/07/22 documented as of this encounter
--- OUTSIDE RECORDS SUMMARY | 2023-06-01 04:13 | External Medical Summary | Summary of Care ---
Author Name Unknown Organization [facility] Address [address] [place] [address] Phone [phone] Care Team Providers Care Sap Business Objects Consultant Name Role Phone Galdino Andujar DO Primary Care Provider [phone] Reason for Visit * Reason Comments Dosage Adjustment Via Phone (anticoag Cl inic) Diabetes Follow-Up Encounter Details Date Type Department Care Team Description 02/28/2023 Telemedicine Family Practice [address] [facility] [address] [place] [id number] College, Pharmacist [address] [address] Type 2 diabetes mellitus with stage 3b chronic kidney disease, with long-term current use of insulin ([facility])* Allergies Active Allergy Reactions Severity Noted Date [...] as of this encounter (statuses as of 02/28/2023) Medications Medication Sig Dispensed Refills Start Date End Date Status ONETOUCH DELICA LANCETS 33G MISC Check blood sugars 3-4 times daily 180 Each 5 08/01/2018 Active oxygen GASIndications:ELISSA (obstructive sleep apnea) Use 3 L/min(Oxygen) as directed continuous. 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:Bobbin Doffer 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/31/2021 Atherosclerosis of [place] coronary arter 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 12/31/2021 [...] Plan: Continue tramadol Abnormality of gait 02/02/[address] [place] [address] 08/19/2014 History of [...] as of this encounter (statuses as of 02/28/2023) Resolved Problems Problem Noted Date Resolved Date [...] as of this encounter (statuses as of 02/28/2023) Immunizations Name Administration Dates Next Due COVID-19 mRNA, LNP-s, No Pre serve, 2-Dose Series (Pfizer) 01/08/2021,12/18/2020 COVID-19, LNP-s, No Preserve , Navarro-sucrose, Ages 12+ (Pfizer) 2022,10/01/2021 Pneumococcal Conjugate Vacci ne, 20-valent ([id number]) 03/12/2022 Pneumococcal Polysaccharide PPV23 (Pneumovax) 08/22/2009,06/15/2006 Seasonal [...] of this encounter Progress Notes * Frances Duong RPh - 02/28/2023 1:07 PM EDT Diabetes telephone follow - up 02/28/2023 Patient Phone Numbers - Reason for contacting patient: Following up with patient regarding blurry vision after starting Farxiga. Patient reports blurry vision has continued - thinks it might be her cataracts. Patient doesreport symptoms of yeast infection after 6 days on Farxiga and was treated with fluconazole by on-call doctor. Symptoms have since resolved. Still waiting for dexcom transmitter to arrive. - Current diabetic medications: DECREASE:Novolog- 40 units withbreakfast, 40unitslunch and 45 units with supper+ SS 1:25 >150 before meals [id number] Trulicity 4.5 mg weekly- Metformin ER 500 mg 1 tablet daily [id number]/08/22 - Glucose review/ SMBG: Reports no significant lows or highs since we spoke 1 week ago. Will followup again in 2 weeks in hopes patient will have dexcom by then. Therapy Management Assessment/Plan: 1) Diabetes: Patient to stop Farxiga for good due to yeast infection (which also happened frequently on Jardiance). Added to medication allergy/intolerance list and notified Romelia Bryant thatit was discontinued. Continue insulin and check in again in 2 weeks with dexcom. Also advised patient to follow up with her eye doctor - [facility] . She is wondering if she needs a referral - w ill put in TE to PCP. Patient's gabapentin was also increased to 200mg TID last week due to increasing pain. She reports the pain has not resolved by the increased dose makes it tolerable. Follow up in 2 weeks or sooner as needed. Advised patient to call me if dexcom transmitter doesn't arrive in two days. Frances Huerta RPh, Pharm D Clinical Pharmacist Medication Therapy Management [facility] 02/28/2023, 1:07 PM documented in this encounter Plan of Treatment Upcoming Encounters Date Type Specialty Care Team Description 03/01/2023 Home Visit [facility] Brooke Jose, RN [address] [place] [address] 03/07/2023 PulmDiagnostic Pulmonary Function [place], Pul Function Tech [address] [place] [address] 03/09/2023 Hospital Encounter Surgery Raj Ahn, DO [address] [place] [address] 03/09/2023 Surgery Surgery Raj Ahn, DO [address] [place] [address] INJECTION SACROILIAC JOINT 03/16/2023 Imaging Radiology 04/07/2023 Office Visit Orthopedics Zack Teague, DO [address] [place] [address] 04/29/2023 Home Visit [facility] Simi Martinez PA-C [address] [place] [address] 05/16/2023 Office Visit Family Medicine Galdino Andujar, DO [address] [place] [address] 08/08/2023 Nurse Only Ancillary College, Nurse Annual Wellness Visit [address] [place] [address] Scheduled Procedures Name Priority Associated Diagnoses Date/Ti [...] Additional history exists CKD HGB USE SMARTSET 14241 11/01/202311/01, 11/01/2022, 06/29/2022, Additional history exists DIABETES-FOOT EXAM 11/01/2023 11/01/2022, 0 01/07/2022, 01/14/2021, Additional history exists TSH 11/01/2023 11/01/2022, 12/25, 12/25/2020, Additional history exists CKD PHOS USE SMARTSET 27140 02/12/202401/24, 01/07/2022, 03/12/2021, Additional history exists Depression [...] Documents on File Type Date Recorded Patient Jersey Knitter Expl anation POLST 03/19/2020 4:25 PM POLST Latest Code Status on File Code Status Date Activated Date Inactivated Comments Full Code 06/15/2011 12:22 PM 06/17/2011 6:44 PM Thi s order reflects the patients [...] the patient have Health Care Power of Peoplesoft Financial Developer? No Healthcare Agents on File Name Relationship Healthcare Agent Relationship Communication Galdino Camp Other - (no specific identity) Health Care Power of Peoplesoft Financial Developer Princess Allen Other - (no specific identity) Health Care Power of Peoplesoft Financial Developer Care Teams Sap Business Objects Consultant Relationship Specialty Start Date End Date Galdino Andujar, DO [address] [place] [address] PCP - General Internal Medicine 01/07/22 documented as of this encounter
--- OUTSIDE RECORDS SUMMARY | 2023-06-01 04:13 | External Medical Summary | Summary of Care ---
Author Name Unknown Organization [facility] Address [address] [place] [address] Phone [phone] Care Team Providers Care Aeronautical Project Engineer Name Role Phone Galdino Andujar DO Primary Care Provider [phone] Reason for Visit * Reason Onset Date Comments [facility]: Maintenance 02/26/2023 Encounter Details Date Type Department Care Team Description 02/26/2023 Scheduled Telephone [facility], [facility] [address] [place] [address] [facility], Nurse [facility] 132 [place] [address] Allergies Active Allergy Reactions Severity Noted Date [...] as of this encounter (statuses as of 02/26/2023) Medications Medication Sig Dispensed Refills Start Date End Date Status ONETOUCH DELICA LANCETS 33G MISC Check blood sugars 3-4 times daily 180 Each 5 08/01/2018 Active oxygen GASIndications:ELISSA (obstructive sleep apnea) Use 3 L/min(Oxygen) as directed continuous. 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:Warper Fixer zahra diastolic congestive heart failure (HCC) If [...] breath),Small airways disease,ILD (interstitial lung disease) ([facility]) 2.5 mg NEBULIZER PRN 01/07/2023 01/07/2024 Active Albuterol Sulfate (Proventil) (5 MG/ML) 0.5% *conc* inhalation solution 2.5 mgIndications:Chronic hypoxemic respiratory failure (HCC),SOB (shortness of breath),Small airways disease,ILD (interstitial lung disease) (HCC) 2.5 mg NEBULIZER PRN 01/07/2023 01/07/2024 Active documented as of this encounter (statuses as of 02/26/2023) Active Problems Problem Noted Date Type 2 [...] 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/31/2021 Atherosclerosis of [place] coronary arter 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 12/31/2021 [...] Plan: Continue tramadol Abnormality of gait 02/02/[address] [address] 08/19/2014 History of pulmonary [...] as of this encounter (statuses as of 02/26/2023) Resolved Problems Problem Noted Date Resolved Date [...] as of this encounter (statuses as of 02/26/2023) Immunizations Name Administration Dates Next Due COVID-19 mRNA, LNP-s, No Pre serve, 2-Dose Series (Pfizer) 01/08/2021,12/18/2020 COVID-19, LNP-s, No Preserve , Navarro-sucrose, Ages 12+ (Pfizer) 2022,10/01/2021 Pneumococcal Conjugate Vacci ne, 20-valent ([id number]) 03/12/2022 Pneumococcal Polysaccharide PPV23 (Pneumovax) 08/22/2009,06/15/2006 Seasonal [...] encounter Miscellaneous Notes * Telephone Encounter - Kika Ramirez RN - 02/26/2023 10:42 AM EDT Follow up call placed to pt to ensure pt got her diflucan and to assess yeast infection. No answer received LMOM to return call and reminded pt to Call [facility] at with any new or worseninghealth concerns or problems, red flag symptoms. documented in this encounter Plan of Treatment Upcoming Encounters Date Type Specialty Care Team Description 02/28/2023 Telemedicine [facility], Pharmacist [address] [place] [address] 02/28/2023 Home Visit [facility] Brooke Jose RN [address] [place] [address] 03/07/2023 PulmDiagnostic Pulmonary Function [place], Pulm Function Tech [address] [place] [address] 03/09/2023 Hospital Encounter Surgery Raj Ahn, DO [address] [place] [address] 03/09/2023 Surgery Surgery Raj Ahn, DO [address] [place] [address] INJECTION SACROILIAC JOINT 03/16/2023 Imaging Radiology 04/07/2023 Office Visit Orthopedics Zack Teague, DO [address] [place] [address] 04/29/2023 Home Visit [facility] Simi Martinez PA-C [address] [place] [address] 05/16/2023 Office Visit Family Medicine Galdino Andujar, [address] [place] [address] 08/08/2023 Nurse Only Ancillary College, Nurse Annual Wellness Visit [address] [place] [address] Scheduled Procedures Name Priority Associated Diagnoses Date/Ti [...] Additional history exists CKD HGB USE SMARTSET 23292 11/01/202311/01, 11/01/2022, 06/29/2022, Additional history exists DIABETES-FOOT EXAM 11/01/2023 11/01/2022, 0 01/07/2022, 01/14/2021, Additional history exists TSH 11/01/2023 11/01/2022, 0412/2021, 12/25/2020, Additional history exists CKD PHOS USE SMARTSET 61881 02/12/202401/24, 01/07/2022, 03/12/2021, Additional history exists Depression [...] Documents on File Type Date Recorded Patient Humid System Operator Expl anation POLST 03/19/2020 4:25 PM [...] the patient have Health Care Power of Works Manager? No Healthcare Agents on File Name Relationship Healthcare Agent Relationship Communication Galdino Camp Other - (no specific identity) Health Care Power of Works Manager Princess Allen Other - (no specific identity) Health Care Power of Works Manager Care Teams Aeronautical Project Engineer Relationship Specialty Start Date End Date Galdino Andujar, [address] [place] [address] PCP - General Internal Medicine 01/07/22 documented as of this encounter
--- OUTSIDE RECORDS SUMMARY | 2023-06-01 04:13 | External Medical Summary | Summary of Care ---
Author Name Unknown Organization [facility] Address [address] [place] [address] Phone [phone] Care Team Providers Care Lace Winder Name Role Phone Galdino Andujar DO Primary Care Provider Reason for Visit * Reason Onset Date Comments [facility]: Acute 02/24/2023 Encounter Details Date Type Department Care Team Description 02/24/2023 Telephone [facility], [facility] [address] [facility] [place] [address] [facility], Nurse [facility] [address] [place] [address] [facility]: Acute Allergies Active Allergy [...] directed continuous. 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 Instructed on order for Diflucan. Patient verbalized understanding of same. Xenia Cornejo RN [facility] Full Time Paramedic [facility] * Addendum Note - Al Mac PA-C [...] 02/24/2023 3:46 PM EDT [facility] stationary engineer apprentice Acute Call Date: 02/24/2023 Time: 3:46 PM Name: Stephanie Camp : 1955 Caller: Stephanie Relationship to Self No chief complaint on file. HPI: Stephanie Camp is a 67 year old female that is calling [facility] Intake to report yeast infection [...] and make recommendations if warranted. *Patient used [email or web address] in [place]. Call back instructions provided to patient. Demetra Berumen. RN [facility] stationary engineer apprentice [phone] documented in this encounter Plan of Treatment Upcoming Encounters Date Type Specialty Care Team Description 02/25/2023 Scheduled Telephone [facility] [place], [place] [address] [address] [place] [address] 02/26/2023 Scheduled Telephone [facility], Nurse [address] [place] [address] 02/28/2023 Telemedicine [facility], Pharmacist [address], [place] [address] 02/28/2023 Home Visit [facility] Brooke Jose, RN [address] [place] [address] 03/07/2023 PulmDiagnostic Pulmonary Function [place], Pulm Function Tech 2 [address] [place] [address] 03/09/2023 Hospital Encounter Surgery Raj Ahn, DO [address] [place] [address] 03/09/2023 Surgery Surgery Raj Ahn, DO [address] [place] [address] INJECTION SACROILIAC JOINT 03/16/2023 Imaging Radiology 04/07/2023 Office Visit Orthopedics Zack Teague, [address] [place] [address] 04/29/2023 Home Visit [facility] Simi Martinez PA-C [address] [place] [address] 05/16/2023 Office Visit [facility] Medicine Galdino Andujar, 293 [facility], [place] [address] 08/08/2023 Nurse Only [employer], Nurse Annual Wellness Visit [address] [facility] 293 [facility], [place] [address] Scheduled Procedures Name Priority Associated Diagnoses Date/Ti [...] Additional history exists CKD HGB USE SMARTSET 83884 11/01/202311/01, 11/01/2022, 06/29/2022, Additional history exists DIABETES-FOOT EXAM 11/01/2023 11/01/2022, 0 01/07/2022, 01/14/2021, Additional history exists TSH 11/01/2023 11/01/2022, 12/25, 12/25/2020, Additional history exists CKD PHOS USE SMARTSET 00561 02/12/202401/24, 01/07/2022, 03/12/2021, Additional history exists Depression [...] Documents on File Type Date Recorded Patient Keller Machine Operator Expl anation POLST 03/19/2020 4:25 [...] the patient have Health Care Power of District Traffic Chief? No Healthcare Agents on File Name Relationship Healthcare Agent Relationship Communication Galdino Camp Other - (no specific identity) Health Care Power of District Traffic Chief Princess Allen Other - (no specific identity) Health Care Power of District Traffic Chief Care Teams Lace Winder Relationship Specialty Start Date End Date Galdino Andujar, DO [address] [place] [address] PCP - General Internal Medicine 4/14/22 documented as of this encounter
--- OUTSIDE RECORDS SUMMARY | 2023-06-01 04:13 | External Medical Summary | Summary of Care ---
Author Name Unknown Organization [facility] Address [address] [place] [address] Phone [phone] Care Team Providers Care Delinquency Counselor Name Role Phone Galdino Andujar DO Primary Care Provider [phone] Reason for Visit * Reason Onset Date Comments [facility]: Maintenance 02/25/2023 Encounter Details Date Type Department Care Team Description 02/25/2023 Scheduled Telephone [facility], [facility] [address] [place] [address] Coordinator, [facility] [address] [place] [address] Allergies Active Allergy Reactions Severity Noted Date [...] directed continuous. 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 Dain Ireland DO [facility] Sugarcane Research Technician - [facility] 02/25/2023 * Telephone Encounter - Mena Cornejo RN - 02/25/2023 10:56 AM EDT Images from the original note were not included. [facility] Telephonic Nurse Follow-Up Call [facility] Subprogram: Primary Care at Home Follow Up [...] she receives the medication. Disposition: Routed to [facility] and[facility]or [facility] at Home Care Team for further advice Also scheduled for f/u call on 02/26 Future Visits Scheduled: Future Appointments-next 60 days Date/Time Provider Specialty Dept Phone 02/25/2023 2:00 PM [facility] [phone] 02/26/2023 11:30 AM Nurse [facility] [phone] 02/28/2023 1:00 PM Pharmacist [address] [place] [address] Medicine [phone] 02/28/2023 4:00 PM Brooke Jose RN [facility] [phone] 03/07/2023 10:30 AM Pulm Function Tech [facility] Pulmonary Function [phone] 03/16/2023 2:00 PM (Arrive by 1:45 PM) [id number] Radiology [phone] 04/07/2023 1:15 PM (Arrive by 1:00 PM) Zack Teague, Orthopedics [phone] 04/29/2023 4:00 PM Simi Martinez PA-C [facility] [phone] 05/16/2023 1:00 PM (Arrive by 12:45 PM) Galdino Andujar DO [facility] Medicine [phone] 08/08/2023 2:00 PM Nurse Annual Wellness Visit [address] [place] [address] Ancillary [phone] Mena Cornejo, RN documented in this encounter Plan of Treatment Upcoming Encounters Date Type Specialty Care Team Description 02/26/2023 Scheduled Telephone [facility], Nurse [place] [address] [place] [address] 02/28/2023 Telemedicine [facility], Pharmacist [address] [place] [address] [facility] [place] [address] 02/28/2023 Home Visit [facility] Brooke Jose RN [address] [place] [address] 03/07/2023 PulmDiagnostic Pulmonary Function [place], Pulm Function Tech [address] [place] [address] 03/09/2023 Hospital Encounter Surgery Raj Ahn, [address] [place] [address] 03/09/2023 Surgery Surgery Raj Ahn DO [address] [place] [address] INJECTION SACROILIAC JOINT 03/16/2023 Imaging Radiology 04/07/2023 Office Visit Orthopedics Zack Teague DO [address] [place] [address] 04/29/2023 Home Visit [facility] Simi Martinez PA-C [address] [place] [address] 05/16/2023 Office Visit Family Medicine Galdino Andujar, DO 293 [place] [address] 08/08/2023 Nurse Only [employer]illary [employer], Nurse Annual Wellness Visit [address] [place] [address] Scheduled Procedures Name Priority Associated Diagnoses Date/Ti [...] Additional history exists CKD HGB USE SMARTSET 25402 11/01/202311/01, 11/01/2022, 06/29/2022, Additional history exists DIABETES-FOOT EXAM 11/01/2023 11/01/2022, 0 01/07/2022, 01/14/2021, Additional history exists TSH 11/01/2023 11/01/2022, 12/25, 12/25/2020, Additional history exists CKD PHOS USE SMARTSET 71828 02/12/202401/24, 01/07/2022, 03/12/2021, Additional history exists Depression [...] Documents on File Type Date Recorded Patient Broadband Installer Expl anation POLST 03/19/2020 4:25 PM POLST [...] the patient have Health Care Power of Precision Millwright? No Healthcare Agents on File Name Relationship Healthcare Agent Relationship Communication Galdino Camp Other - (no specific identity) Health Care Power of Precision Millwright Princess Allen Other - (no specific identity) Health Care Power of Precision Millwright Care Teams Delinquency Counselor Relationship Specialty Start Date End Date Galdino Andujar, DO 293 [place] [address] PCP - General Internal Medicine 01/07/22 documented as of this encounter
--- OUTSIDE RECORDS SUMMARY | 2023-06-01 04:13 | External Medical Summary | Summary of Care ---
Author Name Unknown Organization [facility] Address [address] [place] [address] Phone [phone] Care Team Providers Care Liquid Fertilizer Servicer Name Role Phone ZiaandrewsGaldino DO Primary Care Provider [phone] Reason for Visit * Reason Onset Date Comments Appointment 02/28/2023 Encounter Details Date Type Department Care Team Description 02/28/2023 Telephone [facility], [facility] [address] [facility] [place] [address] Services, Scheduling [address] [place] [address] Appointment Allergies Active Allergy Reactions Severity Noted Date [...] directed continuous. 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 1 Each 0 04/08/2020 Active Blood Glucose Monitoring Suppl (United ToxicologyTOUCH ULTRA 2) w/Device KIT Use to test [...] hemoglobin A1c goal of 7.0%-8.0% ([facility]) INJECT 60 UNITS UNDER THE [...] goal of less than 8.0% ([facility]) Take 1 Tablet (500 mg) by mouth in the morning. 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, NYHA class 1 and CKD stage 3 ([facility]),Chronic diastolic congestive heart failure (HCC) Take 1 [...] hemoglobin A1c goal of 7.0%-8.0% ([facility]) Inject 40-45 units with meals [...] 1 and CKD stage 3 ([facility]),Chronic diastolic congestive heart failure ([facility]) TAKE 1 TABLET BY MOUTH [...] airways disease,ILD (interstitial lung disease) ([facility]) 2.5 mg NEBULIZER PRN 01/07/2023 [...] mRNA, LNP-s, No Pre serve, 2-Dose Series ([employer]) 01/08/2021,12/18/2020 COVID-19, LNP-s, No Preserve , Navarro-sucrose, Ages 12+ (Pfizer) 2022,10/01/2021 Pneumococcal Conjugate Vacci ne, 20-valent ([id number]) 03/12/2022 Pneumococcal Polysaccharide PPV23 (Pneumovax) 08/22/2009,06/15/2006 Seasonal [...] Miscellaneous Notes * Telephone Encounter - ELISSA Edwards - 02/28/2023 11:03 AM EDT Incoming Buck Oneil from Brooke Jose, to triage ptGabriel needs patient slot for acute visit 03/01 12;30pm. Appointment 03/01/2023 1230pm Patient is agreeable documented in this encounter Plan of Treatment Upcoming Encounters Date Type Specialty Care Team Description 02/28/2023 Telemedicine [facility], Pharmacist [address] [facility], [place] [address] Arrived 03/01/2023 Home Visit [facility] Brooke Jose, RN [address] [place] [address] 03/07/2023 PulmDiagnostic Pulmonary Function [place], Pulm Function Tech 2 [address] [place] [address] 03/09/2023 Hospital Encounter Surgery Raj Ahn, DO [address] [place] [address] 03/09/2023 Surgery Surgery Raj Ahn, DO [address] [place] [address] INJECTION SACROILIAC JOINT 03/16/2023 Imaging Radiology 04/07/2023 Office Visit Orthopedics Zack Teague, DO [address] [place] [address] 04/29/2023 Home Visit [facility] Simi Martinez PA-C [address] [place] [address] 05/16/2023 Office Visit [facility] Medicine Galdino Andujar, DO 293 [place] [address] 08/08/2023 Nurse Only Ancillary [employer], Nurse Annual Wellness Visit [address] [place] [place] [address] Scheduled Procedures Name Priority Associated Diagnoses Date/Ti [...] Additional history exists CKD HGB USE SMARTSET 98163 11/01/202311/01, 11/01/2022, 06/29/2022, Additional history exists DIABETES-FOOT EXAM 11/01/2023 11/01/2022, 0 01/07/2022, 01/14/2021, Additional history exists TSH 11/01/2023 11/01/2022, 12/25, 12/25/2020, Additional history exists CKD PHOS USE SMARTSET 00873 02/12/202401/24, 01/07/2022, 03/12/2021, Additional history exists Depression [...] Documents on File Type Date Recorded Patient Concaving Machine Operator Expl anation POLST 03/19/2020 4:25 [...] the patient have Health Care Power of Building Trades Teacher? No Healthcare Agents on File Name Relationship Healthcare Agent Relationship Communication Galdino Camp Other - (no specific identity) Health Care Power of Building Trades Teacher Princess Allen Other - (no specific identity) Health Care Power of Building Trades Teacher Care Teams Liquid Fertilizer Servicer Relationship Specialty Start Date End Date Galdino Andujar, [address] [place] [address] PCP - General Internal Medicine 01/07/22 documented as of this encounter
--- OUTSIDE RECORDS SUMMARY | 2023-06-01 04:13 | External Medical Summary | Summary of Care ---
Author Name Unknown Organization [facility] Address [address] [place] [address] Phone [phone] Care Team Providers Care Benefits Counselor Name Role Phone Galdino Andujar DO Primary Care Provider [phone] Reason for Visit * Reason Onset Date Comments Advice 02/25/2023 Encounter Details Date Type Department Care Team Description 02/25/2023 Telephone Family Practice 65 [facility] [place] [address] [place] [address] Galdino Andujar DO [address] [place] [address] Advice Allergies Active Allergy Reactions Severity Noted Date [...] as of this encounter (statuses as of 03/02/2023) Medications Medication Sig Dispensed Refills Start Date [...] 0 0 Active Blood Glucose Monitoring Suppl (Globe WirelessTOUCH ULTRA 2) w/Device KIT Use to test [...] THE MORNING 30 Capsule 3 3 Active Baclofen 5 MG Oral Tablet (Lioresal)Indicati ons:Fibromyalgia TAKE 1 TABLET BY MOUTH TWICE DAILY NEEDED FOR MUSCLE SPASMS 60 Tablet 1 3 Active Magnesium Oxide 400 MG Oral [...] before bedtime. 90 Capsule 5 3 Active Gabapentin 100 MG Oral Capsule (Neurontin)Indicat ions:Fibromyalgia Take 1 Capsule by mouth in the morning and 1 Capsule at noon and 1 Capsule before bedtime. 270 Capsule 3 3 023 Discontinued Gabapentin 100 MG Oral Capsule (Neurontin)Indicat ions:Fibromyalgia Take 2 Capsules by mouth in the morning and 2 Capsules at noon and 2 Capsules before bedtime. 270 Capsule 3 3 023 Discontinued(Re fill) Hospital, Clinic, or Other Facility Administered Medication [...] as of this encounter (statuses as of 03/02/2023) Active Problems Problem Noted Date Type 2 [...] thrombocytopenia (HIT) 0 12/31/2021 Atherosclerosis of [place] coronary arter 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 [...] as of this encounter (statuses as of 03/02/2023) Resolved Problems Problem Noted Date Resolved Date [...] as of this encounter (statuses as of 03/02/2023) Immunizations Name Administration Dates Next Due COVID-19 mRNA, LNP-s, No Pre serve, 2-Dose Series (swiftQueue) 01/08/2021,12/18/2020 COVID-19, LNP-s, No Preserve , Navarro-sucrose, Ages 12+ (Pfizer) 2022,10/01/2021 Pneumococcal Conjugate Vacci ne, 20-valent ([id number]) 03/12/2022 Pneumococcal Polysaccharide PPV23 (Pneumovax) 08/22/2009,06/15/2006 Seasonal [...] encounter Miscellaneous Notes * Telephone Encounter - Ngozi Villatoro DO - 03/02/2023 3:30 PM EDT Rx sent. * Telephone Encounter - Shira Gross LPN - 03/02/2023 3:10 PM EDT Has appointment on Tuesday for follow up, advised we can discuss scooter at that time. Pended script. Thank you * Telephone Encounter - Galdino Andujar DO - 03/02/2023 7:51 AM EDT OK to increase Gabapenyin to 300 mg three times a day * Telephone Encounter - Shira Gross LPN - 03/01/2023 1:56 PM EDT ----- Message from Brooke Jose RN sent at 03/01/2023 1:26 PM EDT ----- Dr. Andujar, You increased Stephanie's gabapentin to 200mg tid. She currently has 100mg tid in her pill packs. She has 300mg tabs from prior to it being d/c'd so she is currently not taking the 100mg tabs in her packs and is instead taking the 300mg tab tid. She is tolerating the 300mg tabs and pain is ''much better.'' If you would like her to decrease dose to 200mg tid she will need a script for extra 100mg tabs tid x 2 weeks (new pill packs come in 2 weeks and should have correct dose). If you wish for her to stay on the 300mg tabs tid she will need a new Rx to [facility] so they can be put in pill packs accordingly. Also, she is interested in getting an electric scooter b/c her mobility is so poor. Is this something your team can assist her with? Thank you, brooke * Telephone Encounter - Telma Sandoavl LPN - 02/25/2023 2:11 PM EDT We do not have anything sooner but will add to cancellation list. * Telephone Encounter - Shira Gross LPN - 02/25/2023 1:54 PM EDT Patient is aware and will comply. Offered wellness visit, refused. She states she just wants the pain to go away. Will also forward to pain management to see if patient can be seen sooner. to [facility]. * Telephone Encounter - Galdino Andujar DO - 02/25/2023 1:48 PM EDT Increase gabapentin to 200 mg three times a day * Telephone Encounter - Shira Gross LPN - 02/25/2023 1:34 PM EDT Called patient, states her back hurts so bad, states she is having problems with being weak in the legs. She states she has had so much pain, she thought about taking a hand full of pills. States she wouldn't do so, but is hurting so bad she is desperate. Is scheduled with pain intervention 03/09/2023 Is scheduled with [facility] tomorrow for a phone call. Is taking tramadol 50 mg every 8 hours for pain. Gabapentin 100 mg three times daily bacolfen 5 mg twice daily Pain is wearing her down. Will forward to pain management to see if we can assist with a sooner appt. Can any medications be increased? Thank you * Telephone Encounter - ELISSA Snider - 02/25/2023 1:23 PM EDT Would like a call She does not sound good Sounds winded documented in this encounter Plan of Treatment Upcoming Encounters Date Type Specialty Care Team Description 03/07/2023 PulmDiagnostic Pulmonary Function [place], Pulm Function Tech [address] [place] [address] 03/07/2023 Office Visit Family Medicine Galdino Andujar, [address] [place] [address] 03/09/2023 Hospital Encounter Surgery Raj Ahn, DO [address] [place] [address] 03/09/2023 Surgery Surgery Raj Ahn, DO [address] [place] [address] INJECTION SACROILIAC JOINT 03/16/2023 Imaging Radiology 04/06/2023 [facility] Visit [facility] Brooke Jose RN [address] [place] [address] 04/07/2023 Office Visit Orthopedics Zack Teague, DO [address] [place] [address] 04/29/2023 Home Visit [facility] Simi Martinez PA-C [address] [place] [address] 05/16/2023 Office Visit Family Medicine Galdino Andujar, DO 293 [facility], [place] [address] 08/08/2023 Nurse Only Ancillary College, Nurse Annual Wellness Visit [address] [facility] 293 [facility], [place] [address] Scheduled Procedures Name Priority Associated Diagnoses Date/Ti [...] 04/07/2020, Additional history exists GFR 06/10/2023 12/08/2022, 020 02/2023, 09/13/2022, Additional history exists HbA1c 08/14/2023 02/11/2023, 020 02/2023, 05/12/2022, Additional history exists Albumin/Creatinine Ratio 11/01/20232 023, 01/07/2022, 05/24/2019, Additional history exists CKD HGB USE SMARTSET 47062 11/01/202311/01, 11/01/2022, 06/29/2022, Additional history exists DIABETES-FOOT EXAM 11/01/2023 11/01/2022, 0 01/07/2022, 01/14/2021, Additional history exists TSH 11/01/2023 11/01/2022, 12/25, 12/25/2020, Additional history exists CKD PHOS USE SMARTSET 95485 02/12/202401/24, 01/07/2022, 03/12/2021, Additional history exists Depression [...] Diagnoses Diagnosis Fibromyalgia Mylagia and myositis, unspecified Inflammation of sacroiliac joint (HCC) Sacroiliitis, not elsewhere classified documented in this encounter Advance Directives Documents on File Type Date Recorded Patient Track Fitter Expl anation POLST 03/19/2020 4:25 PM POLST [...] the patient have Health Care Power of Dry Cell Sealer? No Healthcare Agents on File Name Relationship Healthcare Agent Relationship Communication Galdino Camp Other - (no specific identity) Health Care Power of Dry Cell Sealer Princess Allen Other - (no specific identity) Health Care Power of Dry Cell Sealer Care Teams Benefits Counselor Relationship Specialty Start Date End Date Galdino Andujar, DO [address] [place] [address] PCP - General Internal Medicine 01/07/22 documented as of this encounter
--- OUTSIDE RECORDS SUMMARY | 2023-06-01 04:14 | External Medical Summary | Summary of Care ---
Author Name Unknown Organization [facility] Address [address] [place] [address] Phone [phone] Care Team Providers Care Butter Fat Tester Name Role Phone Lexii Andujar DO Primary Care Provider [phone] Reason for Visit * Reason Comments eRx-Medication Refill Encounter Details Date Type Department Care Team Description 02/10/2023 Refill Family Practice [address] [place] [address] [place] [address] Lexii Andujar DO [address] [place] [address] Restless legs syndrome; Anxiety state; Primary insomnia; Lumbar radiculopathy; Primary osteoarthritis of left knee; Chronic diastolic congestive heart failure (HCC) Allergies [...] as of this encounter (statuses as of 02/10/2023) Medications Medication Sig Dispensed Refills Start Date [...] 0 0 Active Blood Glucose Monitoring Suppl (PrepChampsTOUCH ULTRA 2) w/Device KIT Use to test [...] Active Additional Information Patient taking differently: INJECT 56 UNITS UNDER THE SKIN IN THE EVENING, Reported on 11/01/2022 Cholecalciferol 25 MCG (1000 UT) Oral Capsule [...] mellitus with hemoglobin A1c goal of 7.0%-8.0% ([facility]) Inject 40-45 units with meals + sliding scale 1 units for every 25 units BG > 150. 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 60 Tablet 5 2 02/11/20 23 Discontinued Furosemide 40 MG Oral Tablet (Lasix)Indications: Chronic diastolic congestive heart failure (HCC) Take 1.5 Tablets (60 mg) by mouth in the morning and 1.5 Tablets (60 mg) before bedtime. May take 120 mg twice a day for three days when instructed. 120 Tablet 1 2 02/11/20 23 Discontinued traZODone HCl 100 MG Oral Tablet (Desyrel)Indication s:Primary insomnia Take 1 Tablet by mouth at bedtime. 30 Tablet 5 3 02/11/20 23 Discontinued clonazePAM 0.5 MG Oral Tablet (KlonoPIN)Indicatio ns:Restless legs syndrome,Anxiety state TAKE 1 TABLET BY MOUTH IN THE MORNING AND AT BEDTIME 60 Tablet 0 3 02/11/20 23 Discontinued traMADol HCl 50 MG Oral Tablet (Ultram)Indications :Lumbar radiculopathy,Prima ry osteoarthritis of left knee Take 1 Tablet by mouth every 8 hours as needed for Pain, Severe. 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 Atherosclerosis of [place] coronary arter 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 [...] Plan: Continue tramadol Abnormality of gait 02/02/2016 [place] filter in place 08/19/2014 History of pulmonary [...] as of this encounter (statuses as of 02/10/2023) Resolved Problems Problem Noted Date Resolved Date [...] as of this encounter (statuses as of 02/10/2023) Immunizations Name Administration Dates Next Due COVID-19 mRNA, LNP-s, No Pre serve, 2-Dose Series ([employer]) 01/08/2021,12/18/2020 COVID-19, LNP-s, No Preserve , Navarro-sucrose, Ages 12+ (Pfizer) 2022,10/01/2021 Pneumococcal Conjugate Vacci ne, 20-valent (Cggghin19) 03/12/2022 Pneumococcal Polysaccharide PPV23 (Pneumovax) 08/22/2009,06/15/2006 Seasonal [...] got money to buy more. Never true 12/08/2022 Within the past 12 months, t he food you bought just didn't last and you didn't have money to get more. Never true 12/08/2022 Sex Assigned at Date Recorded Female 11/07/2019 2:[address] Job Start Date Occupation Industry Not on file Not on file Not on file documented as of this encounter Miscellaneous Notes * Telephone Encounter - Lexii Andujar DO - 02/10/2023 4:19 PM EDTSigned Prescriptions: Disp Refills clonazePAM 0.5 MG Oral Tablet (KlonoPIN) 60 Tab*0 Sig: TAKE 1 TABLET BY MOUTH IN THE MORNING AND AT BEDTIMEAuthorizing Provider: LEXII ANDUJAR-Time S 8.6-50MG Oral Tablet (senna-*60 Tab*5 Sig: TAKE 1 TABLET BY MOUTH IN THE MORNING AND AT BEDTIMEAuthorizing Provider: LEXII ANDUJAR traZODone HCl 100 MG Oral Tablet (Desyrel) 30 Tab*5 Sig: TAKE 1 TABLET BY MOUTH AT BEDTIMEAuthorizing Provider: LEXII ANDUJAR AOrdering User: DURA, TAHMINA traMADol HCl50 MG Oral Tablet (Ultram) 90 Tab*0 Sig: TAKE 1 TABLET BY MOUTH EVERY 8 HOURS NEEDED FOR SEVERE PAINAuthorizing Provider: LEXII ANDUJAR Furosemide 40 MG Oral Tablet (Lasix) 84 Tab*4 Sig: TAKE 1 AND 1/2 TABLETS BY MOUTH IN THE MORNING AND AT BEDTIMEAuthorizing Provider: LEXII ANDUJAR * Telephone Encounter - Tahmina Parekh [facility] - 02/10/2023 3:37 PM EDTPending Prescriptions: Disp Refills clonazePAM 0.5 MG Oral Tablet (KlonoPIN) 60 Tab*0 Sig: TAKE 1 TABLET BY MOUTH IN THE MORNING AND AT BEDTIME Senna-Time S 8.6-50 MG Oral Tablet (senna-*60 Tab*5 Sig: TAKE 1 TABLET BY MOUTH IN THE MORNING AND AT BEDTIME traMADol HCl 50 MG Oral Tablet (Ultram) 90 Tab*0 Sig: TAKE 1 TABLET BY MOUTH EVERY 8 HOURS NEEDED FOR SEVERE PAIN Furosemide 40 MG Oral Tablet (Lasix) 84 Tab*4 Sig: TAKE 1 AND 1/2 TABLETS BY MOUTH IN THE MORNING AND AT BEDTIME Signed Prescriptions: Disp Refills traZODone HCl 100 MG Oral Tablet (Desyrel) 30 Tab*5 Sig: TAKE 1 TABLET BY MOUTH AT BEDTIME Authorizing Provider: LEXII ANDUJAR User: TAHMINA PAREKH * Telephone Encounter - Tahmina Parekh [facility] - 02/10/2023 3:32 PM EDT I have reviewed the patients controlled substance dispensing history in the Prescription Drug Monitoring Program in compliance with the [facility] regulations before prescribing a controlled substance. PDMP checked on 02/10/2023. Pending Prescriptions: Disp Refills clonazePAM 0.5 MG Oral Tablet (KlonoPIN) *60 Tab*0 Sig: TAKE 1 TABLET BY MOUTH IN THE MORNING AND AT BEDTIME Senna-Time S 8.6-50 MG Oral Tablet (senna*60 Tab*5 Sig: TAKE 1 TABLET BY MOUTH IN THE MORNING AND AT BEDTIME traZODone HCl 100 MG Oral Tablet (Desyrel*30 Tab*5 Sig: TAKE 1 TABLET BY MOUTH AT BEDTIME traMADol HCl 50 MG Oral Tablet (Ultram) [*90 Tab*0 Sig: TAKE 1 TABLET BY MOUTH EVERY 8 HOURS NEEDED FOR SEVERE PAIN Furosemide 40 MG Oral Tablet (Lasix) [Pha*84 Tab*4 Sig: TAKE 1 AND 1/2 TABLETS BY MOUTH IN THE MORNING AND AT BEDTIME Last Visit: 12/08/2022 (in office), 11/26/2022 (telemedicine) Next Visit: 02/11/2023 Date medication was last filled: 01/12/23, 01/11/23 Date medication is due for refill: 02/08/23, 02/09/23 Pharmacy: [facility] [address] Is this request for a controlled [...] Results Review. Please approve if appropriate. Thanks, Tahmina Parekh, PharmD Clinical Pharmacist Telepharmacy [phone] 02/10/2023, 3:33 PM documented in this encounter Plan of Treatment Upcoming Encounters Date Type Specialty Care Team Description 02/11/2023 Office Visit [facility] Lexii Andujar, DO [address] [facility], [place] [address] 02/11/2023 Office Visit [facility], Pharmacist [address] [place] [address] 02/28/2023 Home Visit [facility] Brooke Jose RN [address] [place] [address] 03/07/2023 PulmDiagnostic Pulmonary Function [facility] Pulm Function Tech [address] [place] [address] 03/16/2023 Hospital Encounter Surgery Raj Ahn, DO [address] [place] [address] 03/16/2023 Surgery Surgery Raj Ahn, DO [address] [place] [address] INJECTION SACROILIAC JOINT 04/29/2023 Home Visit [facility] Simi Martinez PA-C [address] [place] [address] 08/08/2023 Nurse Only [employer], Nurse Annual Wellness Visit [address], [place] [address] Scheduled Procedures Name Priority Associated Diagnoses Date/Ti me INJECTION SACROILIAC JOINT Inflammation of sacroiliac joint (HCC) 03/16/2023 12:20 PM EDT COLONOSCOPY FLEXIBLE PROXIMAL DIAGNOSTIC Recall Colon cancer screening Health Maintenance Due Date Last Done Comments Cologuard 2000 Fecal Occult Blood Test 2000 Sigmoidoscopy 2000 COVID-19 Vaccine (5 - Booster for Pfizer series) 06/08/2022 2022, 10/01/2021, 01/08/2021, Additional history exists CKD PHOS USE SMARTSET 14512 01/07/202312/25, 03/12/2021, 11/17/2020, Additional history exists Mammogram 02/11/2023 02/11/2022, 02/2021, 07/10/2019, Additional history exists HgA1C 05/01/2023 11/01/2022, 04/26, 01/07/2022, Additional history exists DIABETES-EYE EXAM 05/24/2023 05/24/2022, , 04/07/2020, Additional history exists GFR - Renal Function 06/10/2023 12/08/2022, 11/01/2022, 09/13/2022, Additional history exists Albumin/Creatinine Ratio 11/01/2023 023, 01/07/2022, 05/24/2019, Additional history exists CKD HGB USE SMARTSET 67303 11/01/202311/01, 11/01/2022, 06/29/2022, Additional history exists DIABETES-FOOT EXAM 11/01/2023 11/01/2022, 0 01/07/2022, 01/14/2021, Additional history exists TSH FOR THYROID MEDICATION MONITORING YEARLY 11/01/2023 11/01/2022, 01/07/2022, 12/25/2020, Additional history exists Depression Screening, Annual for Pts 12 and Over 12/09/2023 12/08/2022, 06/12/2018 Colonoscopy 02/17/2026 02/18/2016, 01/25, 01/28/2006, Additional [...] syndrome (RLS) Anxiety state Anxiety state, unspecified Primary insomnia Persistent disorder of initiating or maintaining sleep Lumbar radiculopathy Thoracic or lumbosacral neuritis or radiculitis, unspecified Primary osteoarthritis of left knee Primary localized osteoarthrosis, lower leg Chronic diastolic congestive heart failure (HCC) Chronic diastolic heart failure Inflammation of sacroiliac joint (HCC) Sacroiliitis, not elsewhere classified documented in this encounter Advance Directives Documents on File Type Date Recorded Patient Division Toll Wire Chief Expl anation POLST 03/19/2020 4:25 PM [...] the patient have Health Care Power of Flat Lock Machine Operator? No Healthcare Agents on File Name Relationship Healthcare Agent Relationship Communication Lexii Camp Other - (no specific identity) Health Care Power of Flat Lock Machine Operator Princess Allen Other - (no specific identity) Health Care Power of Flat Lock Machine Operator Care Teams Butter Fat Tester Relationship Specialty Start Date End Date Lexii Andujar, [address] [place] [address] PCP - General Internal Medicine 01/07/22 documented as of this encounter
--- OUTSIDE RECORDS SUMMARY | 2023-06-01 04:14 | External Medical Summary ---
Author Name Unknown Address Unknown Organization K01:[facility] [address] [place] [address] Laboratory Report Ordering Provider Test Date Status JAG SHULTZ 02/11/2023 11:31:36 Final Observation Date Value Abnormality Reference (Units ) Status Phosphate 02/11/2023 11:31:36 3.9 2.5-4.8 (m g/dL) Final Performing Location [facility] [address] [place] [address]
--- OUTSIDE RECORDS SUMMARY | 2023-06-01 04:14 | External Medical Summary ---
Author Name Unknown Address Unknown Organization K01:[facility] - [address] [place] [address] Laboratory Report Ordering Provider Test Date Status JAG SHULTZ 02/11/2023 11:31:36 Final Observation Date Value Abnormality Reference (Units ) Status HbA1C 02/11/2023 11:31:36 7.7 Above high normal 4. 0-5.6 (%) Final Performing Location [facility] [address] [place] [address]
--- OUTSIDE RECORDS SUMMARY | 2023-06-01 04:14 | External Medical Summary | Summary of Care ---
Author Name Unknown Organization [facility] Address [address] [place] [address] Phone [phone] Care Team Providers Care Restorative Rehab Aide Name Role Phone Galdino Andujar DO Primary Care Provider [phone] Reason for Visit * Reason Onset Date Comments [facility]: Acute 02/24/2023 Encounter Details Date Type Department Care Team Description 02/24/2023 Telephone [facility] [place] [address] [facility] [place] [address] [facility], Nurse [facility] [address] [place] [address] [facility]: Acute Allergies Active Allergy [...] directed continuous. 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 diastolic congestive heart failure (HCC) If [...] NYHA class 1 and CKD stage 3 ([facility]),Chronic diastolic congestive heart failure (HCC) [...] (HIT) 0 12/31/2021 Atherosclerosis of [place] coronary arter 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 12/31/2021 [...] (Pfizer) 2022,10/01/2021 Pneumococcal Conjugate Vacci ne, 20-valent ([id number]) 03/12/2022 Pneumococcal Polysaccharide PPV23 (Pneumovax) 08/22/2009,06/15/2006 Seasonal [...] Berumen RN - 02/24/2023 3:46 PM EDT [facility] insole lip turner Acute Call Date: 02/24/2023 Time: 3:46 PM Name: Stephanie Camp : 1955 Caller: Stephanie Relationship to Self No chief complaint on file. HPI: Stephanie Camp is a 67 year old female that is calling [facility] Intake to report yeast infection [...] and make recommendations if warranted. *Patient used [facility] in [place]. Call back instructions provided to patient. Demetra Berumen. [facility] insole lip turner [phone] documented in this encounter Plan of Treatment Upcoming Encounters Date Type Specialty Care Team Description 02/25/2023 Scheduled Telephone [facility], [place] Cisneros [address] [place] [address] 02/26/2023 Scheduled Telephone [facility], Nurse [facility] Geoffrey [address] [place] [address] 02/28/2023 Telemedicine [facility], Pharmacist [address], [place] [address] 02/28/2023 Home Visit [facility] Brooke Jose RN [address] [place] [address] 03/07/2023 PulmDiagnostic Pulmonary Function [place], Pulm Function Tech [address] [place] [address] 03/09/2023 Hospital Encounter Surgery Raj Ahn, [address] [place] [address] 03/09/2023 Surgery Surgery Raj Ahn, [address] [place] [address] INJECTION SACROILIAC JOINT 03/16/2023 Imaging Radiology 04/07/2023 Office Visit Orthopedics Zack Teague, [address] [place] [address] 04/29/2023 Home Visit [facility] Simi Martinez PA-C [address] [place] [address] 05/16/2023 Office Visit Family Medicine Galdino Andujar DO [address] [facility], [place] [address] 08/08/2023 Nurse Only [employer], Nurse Annual Wellness Visit [address] [facility], [place] [address] Scheduled Procedures Name Priority Associated Diagnoses Date/Ti [...] Additional history exists CKD HGB USE SMARTSET 62434 11/01/202311/01, 11/01/2022, 06/29/2022, Additional history exists DIABETES-FOOT EXAM 11/01/2023 11/01/2022, 0 01/07/2022, 01/14/2021, Additional history exists TSH 11/01/2023 11/01/2022, 0412/2021, 12/25/2020, Additional history exists CKD PHOS USE SMARTSET 85821 02/12/2024 05/1 05/2023, 01/07/2022, 03/12/2021, Additional history exists Depression Screening, [...] Documents on File Type Date Recorded Patient Purchasing Officer Expl anation POLST 03/19/2020 4:25 PM POLST [...] the patient have Health Care Power of [place] Operator? No Healthcare Agents on File Name Relationship Healthcare Agent Relationship Communication Galdino Camp Other - (no specific identity) Health Care Power of [place]ucl[place] Operator Princess Allen Other - (no specific identity) Health Care Power of [place]ucl[place] Operator Care Teams Restorative Rehab Aide Relationship Specialty Start Date End Date Galdino Andujar, [address] [place] [address] PCP - General Internal Medicine 01/07/22 documented as of this encounter
--- OUTSIDE RECORDS SUMMARY | 2023-06-01 04:14 | External Medical Summary | Summary of Care ---
Author Name Unknown Organization [facility] Address [address] [place] [address] Phone [phone] Care Team Providers Care Material Man Name Role Phone Galdino Andujar DO Primary Care Provider [phone] Reason for Visit * Reason Comments Follow Up Encounter Details Date Type Department Care Team Description 02/11/2023 Office Visit Family Practice [address] [employer] [address] [place] [address] Galdino Andujar DO [address] [place] [address] Type 2 diabetes mellitus with stage 3b chronic kidney disease, with long-term current use of insulin ([facility])*; 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 3b chronic kidney disease ([facility]); Recurrent deep vein thrombosis (DVT) of both lower extremities ([facility]); [place] filter in place; ILD (interstitial lung disease) ([facility]); Moderate episode of recurrent major depressive disorder ([facility]); Chronic hypoxemic respiratory failure ([facility]); Dyslipidemia; Postsurgical hypothyroidism; ELISSA (obstructive sleep apnea); Statin intolerance; Fibromyalgia; Restless legs syndrome; Gastroesophageal reflux disease with esophagitis without hemorrhage; Hyperparathyroidism, secondary renal ([facility]); Morbid obesity due to excess calories ([facility]); Spinal stenosis of lumbar region without neurogenic claudication; Heparin 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) ([facility]); Atherosclerosis of ute coronary artery of ute heart without angina pectoris; Anxiety state; Encounter for screening mammogram for malignant neoplasm of breast; Primary osteoarthritis of both knees; Lack of adequate food and safe drinking water Allergies Active Allergy Reactions Severity Noted Date [...] as of this encounter (statuses as of 02/11/2023) Medications Medication Sig Dispensed Refills Start Date End Date Status ONETOUCH DELICA LANCETS 33G MISC Check blood sugars 3-4 times daily 180 Each 5 08/01/2018 Active oxygen GASIndications:ELISSA (obstructive sleep apnea) Use 3 L/min(Oxygen) as directed continuous. 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:Claims Adjuster Crop zahra diastolic congestive heart failure (HCC) If [...] Oral Tablet (Levoxyl)Indications :Hyperparathyroidism , secondary renal ([facility]) TAKE 1 TABLET BY MOUTH ONCE DAILY IN THE MORNING 30 Tablet 5 01/12/2023 Active Trulicity 4.5 MG/0.5ML Subcutaneous Solution Pen-injector (Dulaglutide) Inject 1 pen under the skin weekly 6 mL 01/11/2023 Active clonazePAM 0.5 MG Oral Tablet [...] as of this encounter (statuses as of 02/11/2023) Active Problems Problem Noted Date Type 2 [...] 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/31/2021 Atherosclerosis of ute coronary arter 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 12/31/2021 [...] as of this encounter (statuses as of 02/11/2023) Resolved Problems Problem Noted Date Resolved Date [...] as of this encounter (statuses as of 02/11/2023) Immunizations Name Administration Dates Next Due COVID-19 mRNA, LNP-s, No Pre serve, 2-Dose Series (Pfizer) 01/08/2021,12/18/2020 COVID-19, LNP-s, No Preserve , Navarro-sucrose, Ages 12+ (Pfizer) 2022,10/01/2021 Pneumococcal Conjugate Vacci ne, 20-valent ([id number]) 03/12/2022 Pneumococcal Polysaccharide PPV23 (Pneumovax) 08/22/2009,06/15/2006 Seasonal [...] 15 Q uit: 08/26/1997 Smokeless Tobacco: Never Tobacco Cessation:Counseling Given: Yes [...] Sign Reading Time Taken Comments Blood Pressure 122/70 02/11/2023 10:52 AM EDT Pulse 84 02/11/2023 10:52 AM EDT Temperature 36.7 C (98.1 F) 02/11/2023 1 0:52 AM EDT Respiratory Rate - - Oxygen Saturation 94% 02/11/2023 10: 52 AM EDT Inhaled Oxygen Concentration - - Weight 144.7 kg (318 lb 14.4 oz) 2022 10:52 AM EDT Height - - Body Mass Index 53.07 12/08/2022 2:34 PM EDT documented in this encounter Patient Instructions * Patient Instructions* Galdino Andujar DO - 02/11/2023 11:20 AM EDT Based on the consent you provided, you were referred to services through [employer]. Check your email or text message for additional details about the referral(s). You can also go to [email or web address] and click on either "Sign Up" or "Log in". Once logged-in, click on your name in the upper right corner and select "Referrals for Me". You can interact with organizations or programs you were referred to or update your information. Also, while on the site you can search for other programs or services in your area. Visit your local resource connection at [email or web address] BMI (Body Mass Index) is the number obtained by dividing a person's weight in kilograms by his or her height in meters squared. BMI is used in determining obesity. BMI is not used to determine a person's actual percentage of body fat, but it is a good tool to automotive parts coordinator weight in terms of what is healthy and unhealthy. It is used to identify adults at increased risk for developing weight related medical problems. Estimated body mass index is 53.07 kg/m as calculated from the following: Height as of 12/08/22: 1.651 m (5' 5"). Weight as of this encounter: 144.7 kg (318 lb 14.4 oz). Severe Obesity - BMI 40 kg/m2 and above - Severely obese individuals are at a very high risk for developing: * Heart disease * Stroke * Diabetes * High Blood Pressure * High Cholesterol * GERD (acid reflux) * Sleep Apnea * Osteoarthritis * Fatty Liver Disease * Certain Types of Cancers * Gout * Gall Bladder Disease - Weight loss has been shown to decrease weight related medical problems. - A BMI of 40 kg/m2 or higher decreases lifespan by 10 yrs, compared to those with a normal BMI. - A 12-week weight management text message program is also available. Go to [email or web address] and seethe message under '[employer] News' for more information and enrollment. Patient is Instructed to: Diet: * Limit total fat intake to no more than 40 grams per day (low fat diet). * Increase fruits and vegetables to 5 servings per day, combined. * Limited starches (breads, pasta, rice, potatoes, corn, cereals) to 4 servings per day. Avoid Calorie Containing Drinks: * No fruit juices, regular sodas or sweetened drinks. * Water is preferred - 64 ounces per day unless advised of a fluid restriction. * Diet sodas and drinks permitted. Keep Honest, Accurate Food logs: * [email or web address] * [email or web address] * If you bite it - write it! Weigh Yourself Weekly: * Morning is best. * Try to do this outside your home. * Have a friend/spouse remind you to weigh yourself, accountability to others helps. Perform 30 minutes of physical activity daily: * Can do all at once or 5 minutes 6 times per day * 8, 000-10,000 steps per day using a pedometer * Make it fun! documented in this encounter Progress Notes * Galdino Andujar DO - 02/11/2023 11:20 AM EDT SUBJECTIVE: Stephanie Cmap is a 67 year old female. Chief Complaint Patient presents with Follow Up HPI: Patient is a 67 year old female with a history of DM type II, CKD stage III, diastolic CHF, chronichypoxic respiratory failure, HTN, recurrent DVT, IVC filter, hyperlipidemia, statin intolerance, GERD, lumbar disc disease, restless leg syndrome, sleep apnea on CPAP, heparin induced thrombocytopenia, and ambulatory dysfunction that is seen for follow up. No chest pain is present. Chronic shortness of breath is unchanged and weight is up. Chronic leg swelling is stable. Patient wishes to restartGabapentin due to worsening back pain. She wishes to return to see Orthopedics for worsening knee pain. Patient Active Problem List Diagnosis Code Dyslipidemia [...] signed [id number] Chronic diastolic congestive heart failure ([facility]) I50.32 Lumbar radiculopathy M54.16 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 bpipp2t chronic kidney disease ([facility]) I13.0, I50.32, N18.32 Hyperparathyroidism, secondary renal ([facility]) N25.81 Vasculitis ([facility]) I77.6 Primary osteoarthritis of left knee M17.12 Spinal stenosis of lumbar region without neurogenic claudication M48.061 Heparin 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) ([facility]) D75.829 Atherosclerosis of ute coronary arter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 I25.10 Carotid [...] not elsewhere classified ([facility]) M46.1 Current Outpatient Medications Medication Sig Dispense Refill Tresiba FlexTouch 100 UNIT/ML Subcutaneous Solution Pen-injector (Insulin Degludec) INJECT 60 UNITS UNDER THE SKIN EVERY MORNING (Patient taking differently: INJECT 58 UNITS UNDER THE SKIN IN THEEVENING) 60 mL 3 Cholecalciferol 25 MCG (1000 UT) Oral Capsule Take 1 Capsule (1,000 Units) by mouth in the morning. 30 Capsule 5 DULoxetine HCl 60 MG Oral Capsule Delayed Release Particles (Cymbalta) Take 1 Capsule (60 mg) by mouth in the morning. Take 1 capsule daily. 30 Capsule 5 metFORMIN HCl ER 500 MG Oral Tablet Extended Release 24 Hour (Glucophage XR) Take 1 Tablet (500mg) by mouth in the morning. 30 Tablet 5 Potassium Chloride ER 20 MEQ Oral Tablet Extended Release Take 1 Tablet (20 mEq) by mouth in the morning and 1 Tablet (20 mEq) before bedtime. 60 Tablet 5 rOPINIRole HCl 2 MG Oral Tablet (Requip) Take 1 Tablet (2 mg) by mouth at bedtime. 30 Tablet 5 Dicyclomine HCl 20 MG Oral Tablet (Bentyl) Take 1 Tablet (20 mg) by mouth 4 times a day as needed for Cramping. 180 Tablet 3 Ondansetron HCl 4 MG Oral Tablet Take [...] units BG > 150. 121 mL 3 Omeprazole 20 MG Oral Capsule Delayed Release (PriLOSEC) TAKE 1 CAPSULE BY MOUTH ONCE DAILY IN THE MORNING 30 Capsule 3 Baclofen 5 MG Oral Tablet (Lioresal) TAKE 1 TABLET BY MOUTH TWICE DAILY NEEDED FOR MUSCLE SPASMS 60 Tablet 1 Magnesium Oxide 400 MG Oral Tablet TAKE [...] under the skin weekly 6 mL 1 clonazePAM 0.5 MG Oral Tablet (KlonoPIN) TAKE 1 TABLET BY MOUTH IN THE MORNING AND AT BEDTIME 60 Tablet 0 Senna-Time S 8.6-50 MG Oral Tablet (senna-docusate) [...] needed for Pain, Mild or Pain, Moderate. Gabapentin 100 MG Oral Capsule (Neurontin) Take 1 Capsule by mouth in the morning and 1 Capsuleat noon and 1 Capsule before bedtime. 270 Capsule 3 RecordSled DELICA LANCETS 33G MISC Check blood sugars 3-4 times daily 180 Each 5 oxygen GAS Use 3 L/min(Oxygen) as directed continuous. DIURETIC TITRATION PLAN If no improvement on day 3, contact heart failure managing provider. 1 Each 0 Blood Glucose Monitoring Suppl (ONETOUCH ULTRA 2) w/Device KIT Use to test BG values 1 Kit 0 Acetaminophen 500 MG Oral Tablet Take 1 Tablet by mouth every 6 hours as needed. (Patient not taking: Reported on 02/11/2023) CPAP every night at bedtime. BD Pen Needle Short U/F 31G X 8 MM (Insulin Pen Needle) use five times daily 500 Each 3 OneTouch Ultra Blue In Vitro Strip (Glucose Blood) Check sugars 3-4 times daily, E11.9 400 Strip 3 Meclizine HCl 12.5 MG Oral Tablet (Antivert) Take 1 Tablet (12.5 mg) by mouth 3 times a day as needed for Dizziness. 30 Tablet 1 metOLazone 2.5 MG Oral Tablet (Zaroxolyn) Take 1 Tablet (2.5 mg) by mouth daily as needed (leg edema). Do not take unless instructed by provider 15 Tablet 5 Current Facility-Administered Medications Medication Dose Route Frequency [...] History: Diagnosis Date ELSIE (acute kidney injury) (HCC) 06/12/2018 Allergic rhinitis due to other allergen Chronic hypoxemic respiratory failure ([facility]) 01/07/2022 Diverticulosis of colon 01/28/2006 Essential hypertension with goal blood pressure less than 140/90 02/22/2014 ELLIE (generalized anxiety disorder) 09/13/2009 Goiter [place] filter in place 08/19/2014 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HCC) 08/22/2009 History of pulmonary embolus (PE) 07/16/2014 HTN, goal below 140/90 Impetigo 09/27/2018 Obesity, BMI not known Perforation of intestine (HCC) 1996 COLON -- 1996 Pneumonia in aspergillosis(484.6) 09/14/2009 Recurrent deep vein thrombosis (DVT) of both lower extremities ([facility]) 01/07/2022 Sleep apnea, obstructive Spinal stenosis of lumbar region without neurogenic claudication 07/15/2020 Spontaneous pneumothorax 09/14/2009 Statin intolerance 07/16/2014 Type 2 diabetes mellitus with hemoglobin A1c goal of less than 8.0% ([facility]) 01/07/2022 Past Surgical History: Procedure Laterality Date ARTHROPLASTY KNEE TOTAL Right 07/24/14 R COLONOSCOPY, DIAGNOSTIC (RECTUM) 02/18/2016 normal, repeat 10 yrs/[facility] COLONOSCOPY, GI REFERRAL OP 01/28/06 diverticulosis--repeat 10 years INCISION OF [place], PLANNED 06/03/2011 TRACHEOSTOMY PLANNED performed by DANNY HOLDER [place] [facility] INJECT DX/THER SUBSTANCE INTERLAMINAR LUMBAR/SACRAL W IMAGE GUIDE 05/26/2020 INJECTION SPINE LUMBAR OR SACRAL performed by Raj Ahn, DO at OR [facility] INJECT DX/THER SUBSTANCE INTERLAMINAR LUMBAR/SACRAL W IMAGE GUIDE 05/14/2021 INJECTION SPINE LUMBAR OR SACRAL performed by Raj Ahn DO at OR [facility] INJECT DX/THER SUBSTANCE INTERLAMINAR LUMBAR/SACRAL W IMAGE GUIDE 08/13/2021 INJECTION SPINE LUMBAR OR SACRAL performed by Raj Ahn DO at OR [facility] KNEE ARTHROSCOPY/DEBRIDEMENT 07/[address] PERMANENT GASTROSTOMY TUBE 09/06/09 GASTROSTOMY WITH CONSTUCTION GASTRIC TUBE performed by AMADOU NUNEZ at [facility] REMOVAL OF THYROID GLAND 06/15/2011 THYROIDECTOMY INCLUDING SUBSTERNAL THYROID CERVICAL APPROACH performed by DANNY HOLDER at [place] [facility] REMOVE GALLBLADDER 09/06/09 CHOLECYSTECTOMY performed by AMADOU NUNEZ at [facility] REPAIR RECURRENT INCISIONAL HERNIA 1998 REVISION OF COLOSTOMY, SIMPLE 1997 SACROILIAC JOINT INJECT W/GUIDANCE 07/28/2020 INJECTION SACROILIAC JOINT performed by Raj Ahn DO at OR [facility] SACROILIAC JOINT INJECT W/GUIDANCE 03/03/2022 INJECTION SACROILIAC JOINT performed by [place] Callum Ahn DO at OR [facility] SUTURE, LARGE INTESTINE W/COLOSTOMY 1996 perforation R colon with colostomy VENA CAVA FILTER/LIGATION/CLIP 08/19/09 Frank filter placement through the right femoral 08/19/[address] Lerma at [facility] Review of patient's allergies indicates: Allergen Reactions Bupropion Other reaction(s): Recurrent falls as per patient Jardiance [Empagliflozin] Other (Please comment) 3 yeast infections in 6 weeks after starting Codeine hallucination Hay Fever [Pollen] Heparin Heparin Induced Thrombocytopenia Hydrocodone Neuro complications (Please comment) Morphine And Related Hallucinations Tetanus Toxoid Other (Please comment) Passed out Review of Systems Constitutional: Positive for fatigue and unexpected weight change. Negative for appetite change. Respiratory: Positive for shortness of breath. Negative for cough and wheezing. Cardiovascular: Positive for leg swelling. Negative for chest pain and palpitations. Gastrointestinal: Negative for abdominal pain, blood in stool, constipation, diarrhea, nausea and vomiting. Genitourinary: Negative for dysuria and hematuria. Musculoskeletal: Positive for back pain and gait problem. Bilateral knee pain Neurological: Negative for dizziness, syncope and headaches. Psychiatric/Behavioral: Negative for confusion, decreased concentration and sleep disturbance. OBJECTIVE: BP 122/70 | Pulse 84 | Temp 36.7 C (98.1 F) | Wt (!) 144.7 kg (318 lb 14.4 oz) | LMP 03/11/2003| SpO2 94% | BMI 53.07 kg/m | BSA 2.58 m Physical Exam Vitals and nursing note [...] Behavior normal. Thought Content: Thought content normal. PLAN AND ASSESSMENT: Type 2 diabetes mellitus with stage 3b chronic kidney disease, with long-term current use of insulin (HCC) (Primary) - PHOSPHORUS; Future; Expected date: 02/11/2023 - HEMOGLOBIN A1C; Future; Expected date: 02/11/2023 - PHOSPHORUS - HEMOGLOBIN A1C Continue Trulicity, Novolog, Metformin, and Tresiba Attempt to start low dose SGLT-2 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 3b chronic kidney disease (HCC) Continue Furosemide Recurrent deep vein thrombosis (DVT) of both lower extremities (HCC) Continue Apixaban [place] filter in place ILD (interstitial lung disease) (HCC) Moderate episode of recurrent major depressive disorder (HCC) Continue Trazodone, Duloxetine Chronic hypoxemic respiratory failure (HCC) Dyslipidemia Postsurgical hypothyroidism Continue Levothyroxine ELISSA (obstructive sleep apnea) Statin intolerance Fibromyalgia - Restart Gabapentin 100 MG Oral Capsule (Neurontin); Take 1 Capsule by mouth in the morning and 1 Capsule at noon and 1 Capsule before bedtime. Restless legs syndrome Gastroesophageal reflux disease with esophagitis without hemorrhage Continue Omeprazole Hyperparathyroidism, secondary renal (HCC) Morbid obesity due to excess calories (HCC) Patient counseling on weight management given. Spinal stenosis of lumbar region without neurogenic claudication Continue Tramadol 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) Atherosclerosis of ute coronary artery of ute heart without angina pectoris Anxiety state Continue Clonazepam Encounter for screening mammogram for malignant neoplasm of breast - MAMMOGRAM SCREENING BILATERAL; Future; Expected date: 02/11/2023 Primary osteoarthritis of both knees Refer to Orthopedics Lack of adequate food and safe drinking water Follow-up: Return in about 3 months (around 05/14/2023), or if symptoms worsen or fail to improve. |Check-out note: Please schedule mammo Schedule with orthopedics Galdino Andujar DO 12:46 PM 02/11/2023 * Frances Duong RPh - 02/11/2023 10:44 AM EDT Left knee is giving her a lot of pain as well as back. Taking tramadol three times a day lately. Hasn't taken any tylenol. Taking advil 400mg at bedtime. Back injection on 03/16 documented in this encounter Plan of Treatment Upcoming Encounters Date Type Specialty Care Team Description 02/28/2023 [facility] Visit [facility] Brooke Jose, RN [address] [place] [id number] 03/07/2023 PulmDiagnostic Pulmonary Function [facility] Pul Function Tech [address] [id number] 03/16/2023 Hospital Encounter Surgery Raj Ahn, DO [address] [id number] 03/16/2023 Surgery Surgery Raj Ahn, DO [address] [place] [id number] INJECTION SACROILIAC JOINT 03/16/2023 Imaging Radiology 04/07/2023 Office Visit Orthopedics Zack Teague, DO [address] [id number] 04/29/2023 Home Visit [facility] Simi Martinez PA-C [address] [place] [id number] 05/16/2023 Office Visit Family Medicine Galdino Andujar, DO [address] [facility] [place] [address] 08/08/2023 Nurse Only [facility], Nurse Annual Wellness Visit [address] [place] [address] Pending Results Name Type Priority Associated Diagnoses Date /Time PHOSPHORUS Lab Routine Type 2 diabetes mellitus with stage 3b chronic kidney disease, with long-term current use of insulin ([facility]) 02/11/2023 11:31 AM EDT HEMOGLOBIN A1C Lab Routine Type 2 diabetes mellitus with stage 3b chronic kidney disease, with long-term current use of insulin ([facility]) 02/11/2023 11:31 AM EDT Scheduled Orders Name Type Priority Associated Diagnoses Orde r Schedule MAMMOGRAM SCREENING BILATERAL Medical Imaging Routine Encounter for screening mammogram for malignant neoplasm of breast Expected: 02/11/2023, Expires: 02/12/2024 PHOSPHORUS Lab Routine Type 2 diabetes mellitus with stage 3b chronic kidney disease, with long-term current use of insulin (HCC) Expected: 02/11/2023, Expires: 02/12/2024 HEMOGLOBIN A1C Lab Routine Type 2 diabetes mellitus with stage 3b chronic kidney disease, with long-term current use of insulin (HCC) Expected: 02/11/2023 (Approximate), Expires: 02/11/2024 Scheduled Procedures Name Priority Associated Diagnoses Date/Ti me INJECTION SACROILIAC JOINT Inflammation of sacroiliac joint (HCC) 03/16/2023 12:20 PM EDT COLONOSCOPY FLEXIBLE PROXIMAL DIAGNOSTIC Recall Colon cancer screening Health Maintenance Due Date Last Done Comments Cologuard 2000 Fecal Occult Blood Test 2000 Sigmoidoscopy 2000 COVID-19 Vaccine (5 - Booster for Pfizer series) 06/08/2022 2022, 10/01/2021, 01/08/2021, Additional history exists CKD PHOS USE SMARTSET 36780 01/07/202312/25, 03/12/2021, 11/17/2020, Additional history exists Mammogram 02/11/2023 02/11/2022, 02/2021, 07/10/2019, Additional history exists HgA1C 05/01/2023 11/01/2022, 04/26, 01/07/2022, Additional history exists DIABETES-EYE EXAM 05/24/2023 05/24/2022, , 04/07/2020, Additional history exists GFR - Renal Function 06/10/2023 12/08/2022, 11/01/2022, 09/13/2022, Additional history exists Albumin/Creatinine Ratio 11/01/20232 023, 01/07/2022, 05/24/2019, Additional history exists CKD HGB USE SMARTSET 13991 11/01/202311/01, 11/01/2022, 06/29/2022, Additional history exists DIABETES-FOOT [...] long-term current use of insulin (HCC)- Primary 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 3b chronic kidney disease (HCC) Recurrent deep vein thrombosis (DVT) of both lower extremities (HCC) Frank filter in place Other postprocedural status ILD (interstitial lung disease) (HCC) Postinflammatory pulmonary fibrosis Moderate episode of recurrent major depressive disorder (HCC) Chronic hypoxemic respiratory failure (HCC) Chronic respiratory failure Dyslipidemia Other and unspecified hyperlipidemia Postsurgical hypothyroidism ELISSA (obstructive sleep apnea) Obstructive sleep apnea (adult) (pediatric) Statin intolerance Other drug allergy Fibromyalgia Mylagia and myositis, unspecified Restless legs syndrome Restless legs syndrome (RLS) Gastroesophageal reflux disease with esophagitis without hemorrhage Hyperparathyroidism, secondary renal (HCC) Secondary hyperparathyroidism (of renal origin) Morbid obesity due to excess calories (HCC) Spinal stenosis of lumbar region without neurogenic claudication Spinal stenosis, lumbar region, without neurogenic claudication 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) 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) Atherosclerosis of ute coronary artery of ute heart without angina pectoris Anxiety state Anxiety state, unspecified Encounter for screening mammogram for malignant neoplasm of breast Other screening mammogram Primary osteoarthritis of both knees Primary localized osteoarthrosis, lower leg Lack of adequate food and safe drinking water Effects of hunger Inflammation of sacroiliac joint (HCC) Sacroiliitis, not elsewhere classified documented in this encounter Advance Directives Documents on File Type Date Recorded Patient Automatic Furnace Operator Expl anation POLST 03/19/2020 4:25 PM [...] the patient have Health Care Power of Uniform Cap Operator? No Healthcare Agents on File Name Relationship Healthcare Agent Relationship Communication Gladino Camp Other - (no specific identity) Health Care Power of Uniform Cap Operator Princess Allen Other - (no specific identity) Health Care Power of Uniform Cap Operator Care Teams Material Man Relationship Specialty Start Date End Date Galdino Andujar, DO [address] [place] [address] PCP - General Internal Medicine 01/07/22 documented as of this encounter
--- OUTSIDE RECORDS SUMMARY | 2023-06-01 04:14 | External Medical Summary | Summary of Care ---
Author Name Unknown Organization [facility] Address [address] [place] [address] Phone [phone] Care Team Providers Care Glass Glazier Name Role Phone Galdino Andujar DO Primary Care Provider [phone] Reason for Visit * Reason Comments Back Pain Encounter Details Date Type Department Care Team Description 02/10/2023 Office Visit [facility], [facility] [address] [place] [address] Raj Ahn DO [address] [place] [address] Sacroiliitis (HCC)*; Spinal stenosis of lumbar region with neurogenic claudication Allergies Active Allergy Reactions Severity Noted Date [...] 0 0 Active Blood Glucose Monitoring Suppl (LovejuiceTOUCH ULTRA 2) w/Device KIT Use to test [...] at bedtime. 30 Tablet 5 2 Active Sennosides-Docusate Sodium 8.6-50 MG Oral Tablet (Senokot-S) Take 1 Tablet by mouth in the morning and 1 Tablet before bedtime. 60 Tablet 5 2 Active Dicyclomine HCl 20 [...] OTHER MEDS 100 Tablet 1 2 Active Furosemide 40 MG Oral Tablet (Lasix)Indications: Chronic diastolic congestive heart failure (HCC) Take 1.5 Tablets (60 mg) by mouth in the morning and 1.5 Tablets (60 mg) before bedtime. May take 120 mg twice a day for three days when instructed. 120 Tablet 1 2 Active NovoLOG FlexPen 100 [...] MUSCLE SPASMS 60 Tablet 1 3 Active clonazePAM 0.5 MG Oral Tablet (KlonoPIN)Indicatio ns:Restless legs syndrome,Anxiety state TAKE 1 TABLET BY MOUTH IN THE MORNING AND AT BEDTIME 60 Tablet 0 3 Active Magnesium Oxide 400 MG Oral [...] THE MORNING 30 Tablet 5 3 Active traMADol HCl 50 MG Oral Tablet (Ultram)Indications :Lumbar radiculopathy,Prima ry osteoarthritis of left knee Take 1 Tablet by mouth every 8 hours as needed for Pain, Severe. 90 Tablet 0 3 Active Trulicity 4.5 MG/0.5ML Subcutaneous Solution Pen-injector (Dulaglutide) Inject 1 pen under the skin weekly 6 mL 1 3 Active traZODone HCl 100 MG Oral Tablet (Desyrel)Indication s:Primary insomnia Take 1 Tablet by mouth at bedtime. 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 In December of 2021 she did undergo bilateral sacroiliac joint injections and did not follow-up afterward but does feel that it was significantly helpful for her for number of months. She does remain anticoagulated. She also does experience lower extremity symptoms consistent with her underlying spinal stenosis. History: Past Medical History: Diagnosis Date ELSIE (acute kidney injury) ([facility]) 06/12/2018 Allergic rhinitis due to other allergen Chronic hypoxemic respiratory failure ([facility]) 01/07/2022 Diverticulosis of colon 01/28/2006 Essential hypertension with goal blood pressure less than 140/90 02/22/2014 ELLIE (generalized anxiety disorder) 09/13/2009 Goiter Frank filter in place 08/19/2014 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[facility]) 08/22/2009 History of pulmonary embolus (PE) 07/16/2014 HTN, goal below 140/90 Impetigo 09/27/2018 Obesity, BMI not known Perforation of intestine ([facility]) 1996 COLON -- 1996 Pneumonia in aspergillosis(484.6) 09/14/2009 Recurrent deep vein thrombosis (DVT) of both lower extremities ([facility]) 01/07/2022 Sleep apnea, obstructive Spinal stenosis of lumbar region without neurogenic claudication 07/15/2020 Spontaneous pneumothorax 09/14/2009 Statin intolerance 07/16/2014 Type 2 diabetes mellitus with hemoglobin A1c goal of less than 8.0% ([facility]) 01/07/2022 Past Surgical History: Procedure Laterality Date ARTHROPLASTY KNEE TOTAL Right 07/24/14 R COLONOSCOPY, DIAGNOSTIC (RECTUM) 02/18/2016 normal, repeat 10 yrs/[facility] COLONOSCOPY, GI REFERRAL OP 01/28/06 diverticulosis--repeat 10 years INCISION OF WINDPIPE, PLANNED 06/03/2011 TRACHEOSTOMY PLANNED performed by DANNY HOLDER at [place] [facility] INJECT DX/THER SUBSTANCE INTERLAMINAR LUMBAR/SACRAL W IMAGE GUIDE 05/26/2020 INJECTION SPINE LUMBAR OR SACRAL performed by Raj Ahn, at OR [facility] INJECT DX/THER SUBSTANCE [...] GASTRIC TUBE performed by AMADOU NUNEZ at [facility] REMOVAL OF THYROID GLAND 06/15/2011 THYROIDECTOMY INCLUDING SUBSTERNAL THYROID CERVICAL APPROACH performed by DANNY HOLDER at [place] [facility] REMOVE GALLBLADDER 09/06/09 CHOLECYSTECTOMY performed by AMADOU NUNEZ at [place] [facility] REPAIR RECURRENT INCISIONAL HERNIA 1998 REVISION OF COLOSTOMY, SIMPLE 1998 SACROILIAC JOINT INJECT W/GUIDANCE 07/28/2020 INJECTION SACROILIAC JOINT performed by Raj Ahn DO at OR [facility] SACROILIAC JOINT INJECT W/GUIDANCE 03/03/2022 INJECTION SACROILIAC JOINT performed by Raj Ahn DO at OR [facility] SUTURE, LARGE INTESTINE W/COLOSTOMY 1996 perforation R colon with colostomy VENA CAVA FILTER/LIGATION/CLIP 08/19/09 Frank filter placement through the right femoral 08/19/[address] Lerma at [facility] Current Outpatient Medications Medication Sig Dispense Refill oxygen GAS Use 3 L/min(Oxygen) as directed continuous. CPAP every night at bedtime. Tresiba FlexTouch 100 UNIT/ML Subcutaneous Solution Pen-injector (Insulin Degludec) INJECT 60 UNITS UNDER THE SKIN EVERY MORNING (Patient taking differently: INJECT 56 UNITS UNDER THE SKIN IN THEEVENING) 60 [...] by mouth at bedtime. 30 Tablet 5 Sennosides-Docusate Sodium 8.6-50 MG Oral Tablet (Senokot-S) Take 1 Tablet by mouth in the morning and 1 Tablet before bedtime. 60 Tablet 5 Dicyclomine HCl 20 MG Oral Tablet (Bentyl) Take 1 Tablet (20 mg) by mouth 4 times a day as needed for Cramping. 180 Tablet 3 Levothyroxine Sodium 200 MCG Oral Tablet (Levoxyl) TAKE ONE TABLET BY MOUTH IN THE MORNING AT LEAST 30 MINUTES PRIOR TO BREAKFAST OR OTHER MEDS 100 Tablet 1 Furosemide 40 MG Oral Tablet (Lasix) Take 1.5 Tablets (60 mg) by mouth in the morning and 1.5 Tablets (60 mg) before bedtime. May take 120 mg twice a day for three days when instructed. 120 Tablet 1 traZODone HCl 100 MG Oral Tablet (Desyrel) Take 1 Tablet by mouth at bedtime. 30 Tablet 5 NovoLOG FlexPen 100 UNIT/ML Subcutaneous Solution Pen-injector [...] NEEDED FOR MUSCLE SPASMS 60 Tablet 1 clonazePAM 0.5 MG Oral Tablet (KlonoPIN) TAKE 1 TABLET BY MOUTH IN THE MORNING AND AT BEDTIME 60 Tablet 0 Magnesium Oxide 400 MG Oral Tablet TAKE 1 TABLET BY MOUTH IN THE MORNING AND AT BEDTIME 60 Tablet 5 Eliquis 5 MG Oral Tablet (Apixaban) TAKE 1 TABLET BY MOUTH IN THE MORNING AND AT BEDTIME 60 Tablet 5 Levothyroxine Sodium 50 MCG Oral Tablet (Levoxyl) TAKE 1 TABLET BY MOUTH ONCE DAILY IN THE MORNING 30 Tablet 5 traMADol HCl 50 MG Oral Tablet (Ultram) Take 1 Tablet by mouth every 8 hours as needed for Pain, Severe. 90 Tablet 0 Trulicity 4.5 MG/0.5ML Subcutaneous Solution Pen-injector (Dulaglutide) Inject 1 pen under the skin weekly 6 mL 1 ONETOUCH DELICA LANCETS 33G MISC Check blood sugars 3-4 times daily 180 Each 5 DIURETIC TITRATION PLAN If no improvement on day 3, contact heart failure managing provider. 1 Each 0 Blood Glucose Monitoring Suppl (ONETOUCH ULTRA 2) w/Device KIT Use to test BG values 1 Kit 0 Acetaminophen 500 MG Oral Tablet Take 1 Tablet by mouth every 6 hours as needed. BD Pen Needle Short U/F 31G X [...] as needed for Nausea. 90 Tablet 6 Current Facility-Administered Medications Medication Dose Route Frequency Provider Last Rate Last Admin Albuterol Sulfate (Proventil) (2.5 MG/3ML) 0.083% inhalation solution 2.5 mg 2.5 mg Nebulizer PRN Bryon Winter PA-C Albuterol Sulfate (Proventil) (5 MG/ML) 0.5% *conc* inhalation solution 2.5 mg 2.5 mg Nebulizer PRN Bryon Winter PA-C Review of patient's allergies indicates: Allergen Reactions Bupropion Other reaction(s): Recurrent falls as per patient Jardiance [Empagliflozin] Other (Please comment) 3 yeast infections in 6 weeks after starting Codeine hallucination Hay Fever [Pollen] Heparin Heparin Induced Thrombocytopenia Hydrocodone Neuro complications (Please comment) Morphine And Related Hallucinations Tetanus Toxoid Other (Please comment) Passed out Social History Tobacco Use Smoking Status Former Packs/day: 1.00 Years: 15.00 Pack years: 15.00 Types: Cigarettes Quit date: 08/26/1997 Years since quittin.4 Smokeless Tobacco Never Social History Substance and Sexual Activity Alcohol Use Not Currently Comment: rare PHYSICAL EXAM: LMP 03/11/2003 She can stand ambulate the use of wheeled walker. She is +5 over 5 motor function lower extremities. There are no gross sensory deficits noted. There is tenderness over the sacroiliac joints bilaterally with positive BHAVESH ASSESSMENT: Bilateral sacroiliitis Lumbar spinal stenosis with neurogenic claudication RECOMMENDATION: Since she was able to obtain very significant improvement with injections targeting the sacroiliac joints, which can be completed without having to discontinue her Eliquis, this would be the safest procedure to pursue at this point. Patient is agreement will be scheduled for bilateral sacroiliac joint injections. Raj Ahn DO 02/10/2023 3:12 PM I spent a total of 20-29 minutes (exact time 21 mins) on the date of service in preparation, delivery, and documentation of the care provided to Stephanie Camp excluding any time spent in the performance of separately billed services. documented in this encounter Nursing Notes * Telma Sandoval LPN - 02/10/2023 3:10 PM EDT Patient presents with low back and b/l lower buttock and leg pain that flared up 3wks ago Temp relief with oral steroids No new imaging documented in this encounter Plan of Treatment Upcoming Encounters Date Type Specialty Care Team Description 02/11/2023 Office Visit [facility] Medicine Galdino Andujar DO [address] [facility], [place] [address] 02/11/2023 Office Visit [facility], Pharmacist [address] [facility] [address] [place] [address] 02/28/2023 Home Visit [facility] Brooke Jose, RN [address] [place] [address] 03/07/2023 PulmDiagnostic [facility]monary [facility] [place], Pulm Function Tech [address] [place] [address] 03/16/2023 Hospital Encounter Surgery CouRaj soto Callum, DO [address] [place] [address] 03/16/2023 Surgery Surgery Jimy Raj Nolen, DO [address] [place] [address] INJECTION SACROILIAC JOINT 04/29/2023 Home Visit [facility] Simi Martinez PA-C [address] [place] [address] 08/08/2023 Nurse Only [employer], Nurse Annual Wellness Visit [address] [place] [address] Scheduled Orders Name Type Priority Associated Diagnoses Orde r Schedule SACROILIAC JOINT INJECT W/GUIDANCE Procedures Routine Sacroiliitis (HCC) Ordered: 02/10/2023 Scheduled Procedures Name Priority Associated Diagnoses Date/Ti me INJECTION SACROILIAC JOINT Inflammation of sacroiliac joint (HCC) 03/16/2023 12:20 PM EDT COLONOSCOPY FLEXIBLE PROXIMAL DIAGNOSTIC Recall Colon cancer screening Health Maintenance Due Date Last Done Comments Cologuard 2000 Fecal Occult Blood Test 2000 Sigmoidoscopy 2000 COVID-19 Vaccine (5 - Booster for Pfizer series) 06/08/2022 2022, 10/01/2021, 01/08/2021, Additional history exists CKD PHOS USE SMARTSET 39105 01/07/202312/25, 03/12/2021, 11/17/2020, Additional history exists Mammogram 02/11/2023 02/11/2022, 02/2021, 07/10/2019, Additional history exists HgA1C 05/01/2023 11/01/2022, 04/26, 01/07/2022, Additional history exists DIABETES-EYE EXAM 05/24/2023 05/24/2022, , 04/07/2020, Additional history exists GFR - Renal Function 06/10/2023 12/08/2022, 11/01/2022, 09/13/2022, Additional history exists Albumin/Creatinine Ratio 11/01/2023 023, 01/07/2022, 05/24/2019, Additional history exists CKD HGB USE SMARTSET 44578 11/01/202311/01, 11/01/2022, 06/29/2022, Additional history exists DIABETES-FOOT [...] as of this encounter Visit Diagnoses Diagnosis Sacroiliitis (HCC)- Primary Sacroiliitis, not elsewhere classified Spinal stenosis of lumbar region with neurogenic claudication Spinal stenosis, lumbar region, with neurogenic claudication Inflammation of sacroiliac joint (HCC) Sacroiliitis, not elsewhere classified documented in this encounter Advance Directives Documents on File Type Date Recorded Patient Elementary Education Tutor Expl anation POLST 03/19/2020 4:25 PM POLST [...] the patient have Health Care Power of Outside Physical Damage Appraiser? No Healthcare Agents on File Name Relationship Healthcare Agent Relationship Communication Galdino Camp Other - (no specific identity) Health Care Power of Outside Physical Damage Appraiser Princess Allen Other - (no specific identity) Health Care Power of Outside Physical Damage Appraiser Care Teams Glass Glazier Relationship Specialty Start Date End Date Galdino Andujar, DO [address] [facility] [place] [address] PCP - General Internal Medicine 01/07/22 documented as of this encounter
--- OUTSIDE RECORDS SUMMARY | 2023-06-01 04:14 | External Medical Summary | Summary of Care ---
Author Name Unknown Organization [facility] Address [address] [place] [address] Phone [phone] Care Team Providers Care Plant And Maintenance Technician Name Role Phone Galdino Andujar DO Primary Care Provider [phone] Reason for Visit * Reason Comments Dosage Adjustment In Person (Anticoag Cl inic) Diabetes Follow-Up Encounter Details Date Type Department Care Team Description 02/11/2023 Office Visit Family Practice [facility] [address] [place] [phone] College, Pharmacist [address] [address] Type 2 diabetes mellitus with [...] as of this encounter (statuses as of 02/23/2023) Medications Medication Sig Dispensed Refills Start Date [...] 0 0 Active Blood Glucose Monitoring Suppl (OptuLinkTOUCH ULTRA 2) w/Device KIT Use to test [...] AT BEDTIME 84 Tablet 4 3 Active Farxiga 5 MG Oral Tablet (Dapagliflozin Propanediol) Take 1 Tablet by mouth in the morning. 30 Tablet 11 3 02/24/20 23 Discontinued Hospital, Clinic, or Other Facility Administered Medication Ordered Dose Route Frequency Start Date End Date Status Albuterol Sulfate (Proventil) (2.5 MG/3ML) 0.083% inhalation solution 2.5 mgIndications:Chronic hypoxemic respiratory failure (HCC),SOB (shortness of breath),Small airways disease,ILD (interstitial lung disease) ([facility]) 2.5 mg NEBULIZER PRN 01/07/2023 01/07/2024 Active Albuterol Sulfate (Proventil) (5 MG/ML) 0.5% *conc* inhalation solution 2.5 mgIndications:Chronic hypoxemic respiratory failure (HCC),SOB (shortness of breath),Small airways disease,ILD (interstitial lung disease) (HCC) 2.5 mg NEBULIZER PRN 01/07/2023 01/07/2024 Active documented as of this encounter (statuses as of 02/23/2023) Active Problems Problem Noted Date Type 2 [...] 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/31/2021 Atherosclerosis of [place] coronary arter 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 [...] as of this encounter (statuses as of 02/23/2023) Resolved Problems Problem Noted Date Resolved Date [...] as of this encounter (statuses as of 02/23/2023) Immunizations Name Administration Dates Next Due COVID-19 mRNA, LNP-s, No Pre serve, 2-Dose Series (Pfizer) 01/08/2021,12/18/2020 COVID-19, LNP-s, No Preserve , Navarro-sucrose, Ages 12+ (Pfizer) 2022,10/01/2021 Pneumococcal Conjugate Vacci ne, 20-valent ([id number]) 03/12/2022 Pneumococcal Polysaccharide PPV23 (Pneumovax) 08/22/2009,06/15/2006 Seasonal [...] this encounter Progress Notes * Frances Duong, [facility] - 02/11/2023 11:35 AM EDT Medication Therapy Disease Management Clinic - Diabetes Management Progress Note Stephanie Camp, identified by name and date of , is a 67 year old female being seen for diabetes management/education. Patient presents for return diabetic visit. DIABETES: Current diabetic medications: DECREASE:Novolog- 40 units withbreakfast, 42unitslunch and 45 units with supper+ SS 1:25 >150 before meals INCREASE:[id number] Trulicity 4.5 mg weekly- Metformin ER 500 mg 1 tablet daily [id number]/min09/13/22 Medication Injection Site: Abdomen Lifestyle: Diet: unchanged Glucose Review/SMBG: Readings obtained from patient device Pre am Pre Lunch Pre pm 209 146 101 203 232 215 91 189 278 97 196 184 116 241 193 150 215 277 179 290 226 255 167 Pre am Pre Lunch Pre pm Average 216 217 141 Hi 290 278 255 Lo 167 146 91 Range 123 132 164 Hypoglycemia: Does your blood sugar go below 70 mg/dL? No Hyperglycemia symptoms present: none Recent Labs Units 02/11/23 1131 11/01/22 1413 05/12/22 1504 HEMOGLOBIN A1C - [facility] % 7.7* 6.9* 7.6* Recent Labs Units 12/08/22 1515 11/01/22 1413 09/13/22 1410 ESTIMATED GLOMERULAR FILTRATION RATE - [facility] mL/min 33* 35* 38* CREATININE - [facility] mg/dL 1.7* 1.6* 1.5* HYPERTENSION: Patient on ACEi/ARB: no, not indicated BP Readings from Last 3 Encounters: 02/11/23 122/70 02/02/23 115/68 01/25/23 134/76 Blood pressure at goal: yes HYPERLIPIDEMIA: Patient is taking moderate or high intensity statin: No Current regimen: none, statin intolerant Goal statin intensity: high The ASCVD Risk score (Marylu FRANK, et al., 2019) failed to calculate for the following reasons: The patient has a prior MS or stroke diagnosis Recent Labs Units 07/02/22 1511 LDL CHOLESTEROL (CALCULATED) - [facility] mg/dL 120 HEALTH MAINTENANCE REVIEW: Health Maintenance Due Topic Date Due COVID-19 Vaccine (5 - Booster for Pfizer series) 06/08/2022 CKD PHOS USE SMARTSET 08882 01/07/2023 Mammogram 02/11/2023 ASSESSMENT & PLAN: No diagnosis found. BG Readings - Blood sugars uncontrolled. Dexcom hasn't been on due to missing transmitter - resent from company. Medications - Reviewed current regimen, patient is adherent to regimen. Will start farxiga for double coverage of patient's heart failure and diabetes. Had prior yeast infection with Jardiacne but willing to try low dose Farxiga. Discussed with PCP. Diet, Exercise, Lifestyle - No significant lifestyle changes since last visit. Discussed with patient. Patient is agreeable to SMBG 2 time(s) daily until she gets dexcom supplies again. Patient aware to contact clinic if any hypoglycemia before next visit. MEDICATION CHANGES: yes, see below; preferred pharmacy: [facility] Diabetic Medications: DECREASE:Novolog- 40 units withbreakfast, 40unitslunch and 45 units with supper+ SS 1:25 >150 before meals [id number] (will likely decrease upon starting Farxiga) Trulicity 4.5 mg weekly- START Farxiga 5mg daily (patient may need decreased furosemide dose upon starting - BMP 1 week later) Metformin ER 500 mg 1 tablet daily [id number]/min09/13/22 HEALTH MAINTENANCE INTERVENTIONS: Labs: Ordered & Scheduled: BMP/CMP Immunizations: declined covid Foot Exam: Up to Date Eye Exam: Up to Date Annual Wellness Visit: Up to Date FOLLOW UP: Return to clinic in 4 weeks Frances Huerta RPh Clinical Pharmacist - Medical Records Library Professor Medication Therapy Management Clinic 02/11/2023, 11:35 AM documented in this encounter Plan of Treatment Upcoming Encounters Date Type Specialty Care Team Description 02/28/2023 Telemedicine Family Medicine [place], Pharmacist [address] [address] [place] [address] 02/28/2023 Home Visit [facility] Brooke Jose RN [address] [place] [address] 03/07/2023 PulmDiagnostic Pulmonary Function [place], Pul Function Tech [address] [place] [address] 03/09/2023 Hospital Encounter Surgery Raj Ahn, DO [address] [place] [address] 03/09/2023 Surgery Surgery CouRaj soto, DO [address] [place] [address] INJECTION SACROILIAC JOINT 03/16/2023 Imaging Radiology 04/07/2023 Office Visit Orthopedics Zack Teague, DO [address] [place] [address] 04/29/2023 Home Visit [facility] Simi Martinez PA-C [address] [place] [address] 05/16/2023 Office Visit Family Medicine Galdino Andujar, DO [address] [place] [address] 08/08/2023 Nurse Only [employer]illary [employer], Nurse Annual Wellness Visit [address] [place] [address] Scheduled Procedures Name Priority Associated Diagnoses Date/Ti [...] Additional history exists CKD HGB USE SMARTSET 41640 11/01/202311/01, 11/01/2022, 06/29/2022, Additional history exists DIABETES-FOOT EXAM 11/01/2023 11/01/2022, 0 01/07/2022, 01/14/2021, Additional history exists TSH 11/01/2023 11/01/2022, 12/25, 12/25/2020, Additional history exists CKD PHOS USE SMARTSET 65641 02/12/202401/24, 01/07/2022, 03/12/2021, Additional history exists Depression [...] Documents on File Type Date Recorded Patient Visual Design Lead Expl anation POLST 03/19/2020 4:25 PM POLST [...] the patient have Health Care Power of Bookkeeper Assistant? No Healthcare Agents on File Name Relationship Healthcare Agent Relationship Communication Galdino Camp Other - (no specific identity) Health Care Power of Bookkeeper Assistant Princesseugene Thrashery Other - (no specific identity) Health Care Power of Bookkeeper Assistant Care Teams Plant And Maintenance Technician Relationship Specialty Start Date End Date Galdino Andujar, [address] [place] [address] PCP - General Internal Medicine 01/07/22 documented as of this encounter
--- OUTSIDE RECORDS SUMMARY | 2023-06-01 04:14 | External Medical Summary | Summary of Care ---
Author Name Unknown Organization [facility] Address [address] [place] [address] Phone [phone] Care Team Providers Care Tuberculosis Specialist Name Role Phone Galdino Andujar DO Primary Care Provider [phone] Reason for Visit * Reason Onset Date Comments Test Results 02/14/2023 Encounter Details Date Type Department Care Team Description 02/14/2023 Telephone Family Practice [address] [place] [address] [place] [address] Galdino Andujar DO [address] [place] [address] Test Results Allergies Active Allergy Reactions Severity [...] as of this encounter (statuses as of 02/14/2023) Medications Medication Sig Dispensed Refills Start Date End Date Status ONETOUCH DELICA LANCETS 33G MISC Check blood sugars 3-4 times daily 180 Each 5 08/01/2018 Active oxygen GASIndications:ELISSA (obstructive sleep apnea) Use 3 L/min(Oxygen) as directed continuous. 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 270 Capsule 3 02/11/2023 Active Farxiga 5 MG Oral Tablet (Dapagliflozin Propanediol) Take 1 Tablet by mouth in the morning. 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/31/2021 Atherosclerosis of [place] coronary arter 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 12/31/2021 [...] as of this encounter (statuses as of 02/14/2023) Resolved Problems Problem Noted Date Resolved Date [...] as of this encounter (statuses as of 02/14/2023) Immunizations Name Administration Dates Next Due COVID-19 mRNA, LNP-s, No Pre serve, 2-Dose Series (Pfizer) 01/08/2021,12/18/2020 COVID-19, LNP-s, No Preserve , Navarro-sucrose, Ages 12+ (Pfizer) 2022,10/01/2021 Pneumococcal Conjugate Vacci ne, 20-valent ([id number]) 03/12/2022 Pneumococcal Polysaccharide PPV23 (Pneumovax) 08/22/2009,06/15/2006 Seasonal [...] Encounter - Chasity Del Toro LPN - 02/14/2023 9:49 AM EDT Patient aware and verbalized understanding. * Telephone Encounter - Chasity Del Toro LPN - 02/14/2023 9:48 AM EDT ----- Message from Galdino Andujar DO sent at 02/13/2023 8:19 PM EDT ----- Hgba1c is up Farxiga stated at visit documented in this encounter Plan of Treatment Upcoming Encounters Date Type Specialty Care Team Description 02/28/2023 Home Visit [facility] Brooke Jose, RN [address] [place] [address] 03/07/2023 PulmDiagnostic Pulmonary Function [facility] Pulm Function Tech [address] [place] [address] 03/16/2023 Hospital Encounter Surgery Raj Ahn, [address] [place] [address] 03/16/2023 Surgery Surgery Raj Ahn, DO [address] [place] [address] INJECTION SACROILIAC JOINT 03/16/2023 Imaging Radiology 04/07/2023 Office Visit Orthopedics Zack Teague, [address] [place] [address] 04/29/2023 Home Visit [facility] Simi Martinez PA-C [address] [place] [address] 05/16/2023 Office Visit Family Medicine Galdino Andujar DO [address] [place] [address] 08/08/2023 Nurse Only [employer], Nurse Annual Wellness Visit [address] [place] [address] Scheduled Procedures Name Priority Associated Diagnoses Date/Ti [...] 06/10/2023 12/08/2022, 11/01/2022, 09/13/2022, Additional history exists HgA1C 08/14/2023 02/11/2023, 0 02/2023, 05/12/2022, Additional history exists Albumin/Creatinine Ratio 11/01/20232 023, 01/07/2022, 05/24/2019, Additional history exists CKD HGB USE SMARTSET 52726 11/01/202311/01, 11/01/2022, 06/29/2022, Additional history exists DIABETES-FOOT EXAM 11/01/2023 11/01/2022, 0 01/07/2022, 01/14/2021, Additional history exists TSH FOR THYROID MEDICATION MONITORING YEARLY 11/01/2023 11/01/2022, 01/07/2022, 12/25/2020, Additional history exists CKD PHOS USE SMARTSET 57554 02/12/202401/24, 01/07/2022, 03/12/2021, Additional history exists Depression [...] Documents on File Type Date Recorded Patient Elephant Keeper Expl anation POLST 03/19/2020 4:25 PM POLST [...] the patient have Health Care Power of Philanthropy Officer? No Healthcare Agents on File Name Relationship Healthcare Agent Relationship Communication Galdino Camp Other - (no specific identity) Health Care Power of Philanthropy Officer Princess Allen Other - (no specific identity) Health Care Power of Philanthropy Officer Care Teams Tuberculosis Specialist Relationship Specialty Start Date End Date Galdino Andujar, [address] [place] [address] PCP - General Internal Medicine 01/07/22 documented as of this encounter
--- OUTSIDE RECORDS SUMMARY | 2023-06-01 04:14 | External Medical Summary | Summary of Care ---
Author Name Unknown Organization [facility] Address [address] [place] [address] Phone [phone] Care Team Providers Care Resistor Tester Name Role Phone Galdino Andujar DO Primary Care Provider [phone] Encounter Details Date Type Department Care Team Description 12/28/2022 Result Scan Unspecified Department <No scans attached> Allergies Active Allergy Reactions Severity Noted Date [...] Dispensed Refills Start Date End Date Status Royal Yatri HolidaysUCH DELICA LANCETS 33G MISC Check blood sugars 3-4 times daily 180 Each 5 08/01/2018 Active oxygen GASIndications:ELISSA (obstructive sleep apnea) Use 3 L/min(Oxygen) as directed continuous. 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 1 Each 0 04/08/2020 Active Blood Glucose Monitoring Suppl (IActive ULTRA 2) w/Device KIT Use to test [...] of 7.0%-8.0% ([facility]) INJECT 60 UNITS UNDER THE SKIN EVERY [...] than 8.0% ([facility]) Take 1 Tablet (500 mg) by mouth in the morning. 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/31/2021 Atherosclerosis of [place] coronary arter 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 12/31/2021 [...] mRNA, LNP-s, No Pre serve, 2-Dose Series ([employer]) 01/08/2021,12/18/2020 COVID-19, LNP-s, No Preserve , Navarro-sucrose, Ages 12+ (Pfizer) 2022,10/01/2021 Pneumococcal Conjugate Vacci ne, 20-valent ([id number]) 03/12/2022 Pneumococcal Polysaccharide PPV23 (Pneumovax) 08/22/2009,06/15/2006 Seasonal [...] Specialty Care Team Description 02/28/2023 Home Visit [facility] Brooke Jose, RN [address] [place] [address] 03/07/2023 PulmDiagnostic Pulmonary Function [place], Pulm Function Tech [address] [place] [address] 03/16/2023 Hospital Encounter Surgery Raj Ahn, DO [address] [place] [address] 03/16/2023 Surgery Surgery Raj Ahn, DO [address] [place] [address] INJECTION SACROILIAC JOINT 03/16/2023 Imaging Radiology 04/07/2023 Office Visit Orthopedics Zack Teague, DO [address] [place] [address] 04/29/2023 Home Visit [facility] Simi Martinez PA-C [address] [place] [address] 05/16/2023 Office Visit Family Medicine Galdino Andujar, [address] [place] [address] 08/08/2023 Nurse Only Ancillary College, Nurse Annual Wellness Visit [address] [facility] [address] [place] [address] Scheduled Procedures Name Priority Associated Diagnoses Date/Ti [...] 09/13/2022, Additional history exists HgA1C 08/14/2023 02/11/2023, 02/2023, 05/12/2022, Additional history exists Albumin/Creatinine Ratio 11/01/2023 023, 01/07/2022, 05/24/2019, Additional history exists CKD HGB USE SMARTSET 69563 11/01/202311/01, 11/01/2022, 06/29/2022, Additional history exists DIABETES-FOOT EXAM 11/01/2023 11/01/2022, 0 01/07/2022, 01/14/2021, Additional history exists TSH FOR THYROID MEDICATION MONITORING YEARLY 11/01/2023 11/01/2022, 01/07/2022, 12/25/2020, Additional history exists CKD PHOS USE SMARTSET 49622 02/12/202401/24, 01/07/2022, 03/12/2021, Additional history exists Depression [...] Procedure Name Priority Date/Time Associated Diagnosis Comments RADIOLOGY SCANNED RESULT 12/28/2022 documented in this encounter Results * RADIOLOGY SCANNED RESULT (12/28/2022) 12/28/2022 No Physician Data Unknown DIAGNOSTIC RAD IOLOGY SERVICES documented in this encounter Advance Directives Documents on File Type Date Recorded Patient Mural Artist Expl anation POLST 03/19/2020 4:25 PM [...] the patient have Health Care Power of Fruit Washer? No Healthcare Agents on File Name Relationship Healthcare Agent Relationship Communication Galdino Camp Other - (no specific identity) Health Care Power of Fruit Washer Princess Allen Other - (no specific identity) Health Care Power of Fruit Washer Care Teams Resistor Tester Relationship Specialty Start Date End Date Galdino Andujar, DO [address] [place] [address] PCP - General Internal Medicine 01/07/22 documented as of this encounter
--- OUTSIDE RECORDS SUMMARY | 2023-06-01 04:15 | External Medical Summary | Summary of Care ---
Author Name Unknown Organization [facility] Address [address] [place] [address] Phone [phone] Care Team Providers Care Innovations Paraprofessional Name Role Phone ZiaandrewsGaldino DO Primary Care Provider [phone] Reason for Visit * Reason Onset Date Comments Appointment 02/09/2023 Encounter Details Date Type Department Care Team Description 02/09/2023 Telephone [facility], [facility] [address] [facility] [place] [address] Services, Scheduling [address] [place] [address] Appointment (//) Allergies Active Allergy Reactions Severity Noted Date [...] as of this encounter (statuses as of 02/09/2023) Medications Medication Sig Dispensed Refills Start Date End Date Status DEMIAN BISWAS LANCETS 33G MISC Check blood sugars 3-4 times daily 180 Each 5 08/01/2018 Active oxygen GASIndications:ELISSA (obstructive sleep apnea) Use 3 L/min(Oxygen) as directed continuous. 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 60 Tablet 5 08/25/2022 Active rOPINIRole HCl 2 MG Oral Tablet (Requip)Indications: Restless legs syndrome Take 1 Tablet (2 mg) by mouth at bedtime. 30 Tablet 5 08/25/2022 Active Sennosides-Docusate Sodium 8.6-50 MG Oral Tablet (Senokot-S) Take 1 Tablet by mouth in the morning and 1 Tablet before bedtime. 60 Tablet 5 08/25/2022 Active Dicyclomine HCl 20 [...] OTHER MEDS 100 Tablet 1 08/31/2022 Active Furosemide 40 MG Oral Tablet (Lasix)Indications:C hronic diastolic congestive heart failure (HCC) Take 1.5 Tablets (60 mg) by mouth in the morning and 1.5 Tablets (60 mg) before bedtime. May take 120 mg twice a day for three days when instructed. 120 Tablet 1 09/06/2022 Active traZODone HCl 100 MG Oral Tablet (Desyrel)Indications :Primary insomnia Take 1 Tablet by mouth at bedtime. 30 Tablet 5 09/29/2022 Active NovoLOG FlexPen 100 UNIT/ML Subcutaneous Solution Pen-injector (insulin aspart)Indications:T ype 2 diabetes mellitus with hemoglobin A1c goal of 7.0%-8.0% ([facility]) Inject 40-45 units with meals + sliding [...] MUSCLE SPASMS 60 Tablet 1 11/17/2022 Active clonazePAM 0.5 MG Oral Tablet (KlonoPIN)Indication s:Restless legs syndrome,Anxiety state TAKE 1 TABLET BY MOUTH IN THE MORNING AND AT BEDTIME 60 Tablet 0 01/12/2023 Active Magnesium Oxide 400 MG Oral TabletIndications:Be [...] THE MORNING 30 Tablet 5 01/12/2023 Active traMADol HCl 50 MG Oral Tablet (Ultram)Indications: Lumbar radiculopathy,Primar y osteoarthritis of left knee Take 1 Tablet by mouth every 8 hours as needed for Pain, Severe. 90 Tablet 0 01/11/2023 Active Trulicity 4.5 MG/0.5ML Subcutaneous Solution Pen-injector (Dulaglutide) Inject 1 pen under the skin weekly 6 mL 1 01/11/2023 Active Hospital, Clinic, or Other Facility Administered Medication Ordered Dose Route Frequency Start Date End Date Status Albuterol Sulfate (Proventil) (2.5 MG/3ML) 0.083% inhalation solution 2.5 mgIndications:Chronic hypoxemic respiratory failure (HCC),SOB (shortness of breath),Small airways disease,ILD (interstitial lung disease) ([facility]) 2.5 mg NEBULIZER PRN 01/07/2023 01/07/2024 Active Albuterol Sulfate (Proventil) (5 MG/ML) 0.5% *conc* inhalation solution 2.5 mgIndications:Chronic hypoxemic respiratory failure (HCC),SOB (shortness of breath),Small airways disease,ILD (interstitial lung disease) (HCC) 2.5 mg NEBULIZER PRN 01/07/2023 01/07/2024 Active documented as of this encounter (statuses as of 02/09/2023) Active Problems Problem Noted Date Type 2 [...] thrombocytopenia (HIT) 0 12/31/2021 Atherosclerosis of [place] coronary arter y without angina [...] as of this encounter (statuses as of 02/09/2023) Resolved Problems Problem Noted Date Resolved Date [...] as of this encounter (statuses as of 02/09/2023) Immunizations Name Administration Dates Next Due COVID-19 mRNA, LNP-s, No Pre serve, 2-Dose Series ([employer]) 01/08/2021,12/18/2020 COVID-19, LNP-s, No Preserve , Navarro-sucrose, Ages 12+ ([employer]) 2022,10/01/2021 Pneumococcal Conjugate Vacci ne, 20-valent ([id number]) 03/12/2022 Pneumococcal Polysaccharide PPV23 (Pneumovax) 08/22/2009,06/15/2006 Seasonal [...] * Telephone Encounter - ELISSA Echols - 02/09/2023 8:49 AM EDT Per Request to reschedule appt... Called s/w pt she advised 02/28 at 4:00pm is a good date and time. documented in this encounter Plan of Treatment Upcoming Encounters Date Type Specialty Care Team Description 02/10/2023 Office Visit Pain Medicine Raj Ahn, DO [address] [place] [address] 02/11/2023 Office Visit Family Medicine Galdino Andujar DO [address] [place] [address] 02/28/2023 Home Visit [facility] Brooke Jose RN [address] [place] [address] 03/07/2023 PulmDiagnostic Pulmonary Function [place], Pulm Function Tech [address] [facility] [place] [address] 04/29/2023 Home Visit [facility] Simi Martinez PA-C [address] [facility] [address] 08/08/2023 Nurse Only [employer]illary College, Nurse Annual Wellness Visit [address] [place] [address] Scheduled Procedures Name Priority Associated Diagnoses Date/Ti me COLONOSCOPY FLEXIBLE PROXIMAL DIAGNOSTIC Recall Colon cancer screening Health Maintenance Due Date Last Done Comments Cologuard 2000 Fecal Occult Blood Test 2000 Sigmoidoscopy 2000 COVID-19 Vaccine (5 - Booster for Pfizer series) 06/08/2022 2022, 10/01/2021, 01/08/2021, Additional history exists CKD PHOS USE SMARTSET 92332 01/07/202312/25, 03/12/2021, 11/17/2020, Additional history exists Mammogram 02/11/2023 02/11/2022, 02/2021, 07/10/2019, Additional history exists HgA1C 05/01/2023 11/01/2022, 04/26, 01/07/2022, Additional history exists DIABETES-EYE EXAM 05/24/2023 05/24/2022, , 04/07/2020, Additional history exists GFR - Renal Function 06/10/2023 12/08/2022, 11/01/2022, 09/13/2022, Additional history exists Albumin/Creatinine Ratio 11/01/2023 023, 01/07/2022, 05/24/2019, Additional history exists CKD HGB USE SMARTSET 74546 11/01/202311/01, 11/01/2022, 06/29/2022, Additional history exists DIABETES-FOOT [...] Documents on File Type Date Recorded Patient Supervisor Building Maintenance Expl anation POLST 03/19/2020 4:25 PM POLST [...] the patient have Health Care Power of Principal Architect? No Healthcare Agents on File Name Relationship Healthcare Agent Relationship Communication Galdino Camp Other - (no specific identity) Health Care Power of Principal Architect Princess Allen Other - (no specific identity) Health Care Power of Principal Architect Care Teams Innovations Paraprofessional Relationship Specialty Start Date End Date Galdino Andujar, DO [address] [place] [address] PCP - General Internal Medicine 01/07/22 documented as of this encounter
--- OUTSIDE RECORDS SUMMARY | 2023-06-01 04:15 | External Medical Summary | Summary of Care ---
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 0 Active CPAP every night at bedtime. 0 Active BD Pen Needle Short U/F 31G X 8 MM (Insulin Pen Needle) use five times daily 500 Each 3 2 Active NavionicsTouch Ultra Blue In Vitro Strip (Glucose Blood) [...] when instructed. 120 Tablet 1 2 Active traZODone HCl 100 MG Oral Tablet (Desyrel)Indication s:Primary insomnia Take 1 Tablet by mouth at bedtime. 30 Tablet 5 3 Active NovoLOG FlexPen 100 UNIT/ML Subcutaneous [...] skin weekly 6 mL 1 3 Active Apixaban 5 MG Oral Tablet (Eliquis) Take 1 Tablet (5 mg) by mouth in the morning and 1 Tablet (5 mg) before bedtime. 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 60 Capsule 5 2 01/13/20 23 Discontinued Levothyroxine Sodium 50 MCG Oral Tablet (Levoxyl)Indication s:Hyperparathyroidi sm, secondary renal (HCC) TAKE 1 TABLET BY MOUTH DAILY AT LEAST 30 MINUTES PRIOR TO FIRST MEAL OF THE DAY OR OTHER MEDICATIONS 100 Tablet 1 2 01/13/20 23 Discontinued clonazePAM 0.5 MG Oral Tablet (KlonoPIN)Indicatio ns:Restless legs syndrome,Anxiety state TAKE 1 TABLET BY MOUTH IN THE MORNING AND AT BEDTIME 60 Tablet 0 3 01/13/20 23 Discontinued Hospital, Clinic, or Other Facility [...] as of this encounter (statuses as of 01/12/2023) Active Problems Problem Noted Date Type 2 diabetes mellitus wit h stage 3b chronic kidney disease, with long-term current use of insulin 09/29/2022 Anxiety state 09/29/2022 Sacroiliitis, not elsewhere classified 0 09/29/2022 ILD (interstitial lung disease) 08/11/20 22 Last Assessment & Plan: Followed by pulm Stable today Moderate episode of recurrent major depr essive disorder 08/11/2022 Last Assessment & Plan: Stable on duloxetine Primary osteoarthritis of both knees [...] lower extremities 01/07/2022 Last Assessment & Plan: Stable -continue eliquis Chronic hypoxemic respiratory failure Last Assessment & Plan: O2 stable -continue oxygen 3 L at all times. Heparin 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/31/2021 Atherosclerosis of [place] coronary arter 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 12/31/2021 Last Assessment & Plan: No chest pain. Stable. -continue Eliquis -? Unsure why no beta faviola, boogie, or ASA. Will investigate next visit Carotid artery stenosis, asymptomatic, r ight 12/31/2021 Last Assessment & Plan: MRI neck this coming week F/u scheduled with Dr. Tang Spinal stenosis of lumbar region without neurogenic claudication 07/15/2020 Primary osteoarthritis of left knee 10/28 Hyperparathyroidism, [...] and prognosis "RED FLAG" HF Symptoms: o Leg Swelling (Examples: "I can't wear certain socks or shoes", "My pants feel tight") o Increased dyspnea on exertion (Example: "I can't walk to the kitchen or up the stairs") Current Heart Failure Classifications: o With ordinary [...] Regimen: o Beta Faviola Therapy: Other: none o BOOGIE Inhibitor/ARB Therapy: Other: none o Diuretic therapy: Lasix Other: metolazone Self - Management Plan o Add additional 1 tab to morning dose of Furosemide o Add metolazone (Zaroxolyn) 2.5-5mg for 1 days. If using a potassium supplement, double the dose of the supplement will be given on the day of and on the day after the metolazone Exacerbation Plan o Exacerbation plan still being defined and education ongoing Lumbar radiculopathy 09/27/2018 Chronic diastolic congestive heart failu re 06/12/2018 Controlled substance agreement signed Morbid obesity with BMI of 50.0-59.9, ad ult 06/27/2017 Overview: Per Obesity protocol #1 - Per Obesity Taxonomy ICD-10 update of inactive term Gastroesophageal reflux disease with eso phagitis 03/04/2017 Restless legs syndrome 03/25/2016 Last Assessment & Plan: Continue Requip Fibromyalgia 02/02/2016 Last Assessment & Plan: Continue tramadol Abnormality of gait 02/02/[address] 08/19/2014 History of pulmonary embolus (PE) 2013 Last Assessment & Plan: Continue Eliquis Statin intolerance 07/16/2014 Essential hypertension with goal blood p ressure less than 140/90 02/22/2014 Last Assessment & Plan: BP stable -continue diuretics Venous insufficiency 02/07/2013 ELISSA (obstructive sleep apnea) 09/16/2011 Overview: CPAP 11 cwp Mild, AHI 11.3 but with significant nocturnal hypoxemia Dicks Last Assessment & Plan: Compliant with CPAP Postsurgical hypothyroidism 06/16/2011 Last Assessment & Plan: Continue synthroid Dyslipidemia 09/04/2009 Overview: Per Lipid Taxonomy. documented as of this encounter (statuses as of 01/12/2023) Resolved Problems Problem Noted Date Resolved Date [...] Overview: Per Obesity Taxonomy Perforation of intestine 05/23/2 017 Overview: COLON Diverticulitis documented as of this encounter (statuses as of 01/12/2023) Immunizations Name Administration Dates Next Due COVID-19 mRNA, LNP-s, No Pre serve, 2-Dose Series (Pfizer) 01/08/2021,12/18/2020 COVID-19, LNP-s, No Preserve , Navarro-sucrose, Ages 12+ (Pfizer) 2022,10/01/2021 Pneumococcal Conjugate Vacci ne, 20-valent ([id number]) 03/12/2022 Pneumococcal Polysaccharide PPV23 (Pneumovax) 08/22/2009,06/15/2006 Seasonal [...] Telephone Encounter - Lexii Andujar DO - 01/12/2023 9:21 AM EDTSigned Prescriptions: Disp Refills clonazePAM 0.5 MG Oral Tablet (KlonoPIN) 60 Tab*0 Sig: TAKE 1 TABLET BY MOUTH IN THE MORNING AND AT BEDTIMEAuthorizing Provider: LEXII ANDUJAR Magnesium Oxide 400MG Oral Tablet 60 Tab*5 Sig: TAKE 1 TABLET BY MOUTH IN THE MORNING AND AT BEDTIMEAuthorizing Provider: LEXII ANDUJAR Eliquis 5 MG Oral Tablet (Apixaban) 60 Tab*5 Sig: TAKE 1 TABLET BY MOUTH IN THE MORNING AND AT BEDTIMEAuthorizing Provider: LEXII ANDUJAR User: TIFFANY ECHAVARRIA Levothyroxine Sodium 50 MCG Oral Tablet (L*30 Tab*5 Sig: TAKE 1 TABLET BY MOUTH ONCE DAILY IN THE MORNINGAuthorizing Provider: LEXII ANDUJAR User: TIFFANY ECHAVARRIA--------- * Telephone Encounter - Tiffany Echavarria [facility] - 01/12/2023 8:14 AM EDTPending Prescriptions: Disp Refills clonazePAM 0.5 MG Oral Tablet (KlonoPIN) 60 Tab*0 Sig: TAKE 1 TABLET BY MOUTH IN THE MORNING AND AT BEDTIME Magnesium Oxide 400 MG Oral Tablet 60 Tab*5 Sig: TAKE 1 TABLET BY MOUTH IN THE MORNING AND AT BEDTIME Signed Prescriptions: Disp Refills Eliquis 5 MG Oral Tablet (Apixaban) 60 Tab*5 Sig: TAKE 1 TABLET BY MOUTH IN THE MORNING AND AT BEDTIME Authorizing Provider: LEXII ANDUJAR Ordering User: TIFFANY ECHAVARRIA Levothyroxine Sodium 50 MCG Oral Tablet (L*30 Tab*5 Sig: TAKE 1 TABLET BY MOUTH ONCE DAILY IN THE MORNING Authorizing Provider: LEXII ANDUJAR Ordering User: TIFFANY ECHAVARRIA * Telephone Encounter - Tiffany Echavarria [facility] - 01/12/2023 8:14 AM EDT I have reviewed the patients controlled substance dispensing history in the Prescription Drug Monitoring Program in compliance with the [facility] regulations before prescribing a controlled substance. PDMP checked on 01/12/2023. Pending Prescriptions: Disp Refills clonazePAM 0.5 MG Oral Tablet (KlonoPIN) *60 Tab*0 Sig: TAKE 1 TABLET BY MOUTH IN THE MORNING AND AT BEDTIME Last Visit: 12/08/2022 (in office), 11/26/2022 (telemedicine) Next Visit: 02/11/2023 Date medication was last filled: 12/13 (56 tabs) Date medication is due for refill: 01/10 Pharmacy: [facility] [address] Is this request for a controlled [...] in Results Review. Please approve if appropriate. Thank you, Tiffany Echavarria, PharmD. Clinical Pharmacist Pharmacy Refill Call Center 01/12/2023, 8:14 AM documented in this encounter Plan of Treatment Upcoming Encounters Date Type Specialty Care Team Description 01/18/2023 Home Visit [facility] Brooke Jose RN [address] [place] [address] 01/19/2023 PulmDiagnostic Pulmonary Function [place], [address] [place] [address] 02/02/2023 Home Visit [facility] Simi Martinez PA-C [address] [place] [address] 02/11/2023 Office Visit Family Medicine Lexii Andujar, [address] [place] [address] 08/08/2023 Nurse Only [employer], Nurse Annual Wellness Visit [address] [place] [address] Scheduled Procedures Name Priority Associated Diagnoses Date/Ti me COLONOSCOPY FLEXIBLE PROXIMAL DIAGNOSTIC Recall Colon cancer screening Health Maintenance Due Date Last Done Comments Cologuard: Ages 45-75 2000 FOBT: Ages 45-75 2000 Sigmoidoscopy: Ages 45-75 2000 COVID-19 Vaccine (5 - Booster for Pfizer series) 06/08/2022 2022, 10/01/2021, 01/08/2021, Additional history exists CKD PHOS USE SMARTSET 82924 01/07/202312/25, 03/12/2021, 11/17/2020, Additional history exists Mammogram 02/11/2023 02/11/2022, 01/0 02/2021, 07/10/2019, Additional history exists HgA1C 05/01/2023 11/01/2022, 04/26, 01/07/2022, Additional history exists DIABETES-EYE EXAM 05/24/2023 05/24/2022, , 04/07/2020, Additional history exists GFR - Renal Function 06/10/2023 12/08/2022, 11/01/2022, 09/13/2022, Additional history exists Albumin/Creatinine Ratio 11/01/2023 023, 01/07/2022, 05/24/2019, Additional history exists CKD HGB USE SMARTSET 99827 11/01/202311/01, 11/01/2022, 06/29/2022, Additional history exists DIABETES-FOOT EXAM 11/01/2023 11/01/2022, 0 01/07/2022, 01/14/2021, Additional history exists TSH FOR THYROID MEDICATION MONITORING YEARLY 11/01/2023 11/01/2022, 01/07/2022, 12/25/2020, Additional history exists Depression Screening, Annual for Pts 12 and Over 12/09/2023 12/08/2022, 06/12/2018 Colonoscopy: Ages 45-75 02/17/2026 02/18/20 16, 01/28/2006, 10/27/2005 Colorectal Cancer Screening (Colonoscopy 10 Years; Sigmoidoscopy 5 Years; Cologuard 3 Years; FOBT 1 Year): Ages 45-75 02/17/2026 Zoster Vaccines Completed 05/08/2020, 10/27, 12/11/2015 [...] syndrome (RLS) Anxiety state Anxiety state, unspecified 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 No Healthcare Agents on File Name Relationship Healthcare Agent Relationship Communication Lexii Camp Other - (no specific identity) Health Care Power of Emergency Medical Services Coordinator Princess Allen Other - (no specific identity) Health Care Power of Emergency Medical Services Coordinator Care Teams Knitting Machine Operator Relationship Specialty Start Date End Date Lexii Andujar, DO [address] [place] [address] PCP - General Internal Medicine 01/07/22 documented as of this encounter
--- OUTSIDE RECORDS SUMMARY | 2023-06-01 04:15 | External Medical Summary | Summary of Care ---
Author Name Unknown Organization [facility] Address [address] [place] [address] Phone [phone] Care Team Providers Care Door Cutter Name Role Phone PratimaGaldino DO Primary Care Provider [phone] Reason for Referral * Evaluate & Treat - Unlimited Visits (Within 10 days (routine)) - Authorized Specialty Diagnoses / Procedures Referred By Ethan chao Referred To Contact Neuro/Ortho Surgery - Spine. / Neurological Surgery Diagnoses Sacroiliitis, not elsewhere classified (HCC) Simi Martinez PA-C [address] [place] [address] Referral ID Status Reason Start Date Expiration Date Visits Requested Visits Authorized [id number] Authorized Specialty Services Required 01/25/[phone] Question Answer Referral Priority Within 10 days (routine) Select spine region: Back - Thoracic/Lumbar Do you have any recent complete loss of bladder or bowel function? No Comments Has seen Dr. Ahn in past and would like to see him again for management of back pain with sciatica Encounter Details Date Type Department Care Team Description 01/25/2023 Orders Only [facility], [place] [address] [place] [address] Brooke Jose, RN [address] [place] [address] Sacroiliitis, not elsewhere classified (HCC)* Allergies Active Allergy Reactions Severity Noted [...] as of this encounter (statuses as of 01/25/2023) Medications Medication Sig Dispensed Refills Start Date End Date Status ONETOUCH DELFRANTZ LANCETS 33G MISC Check blood sugars 3-4 times daily 180 Each 5 08/01/2018 Active oxygen GASIndications:ELISSA (obstructive sleep apnea) Use 3 L/min(Oxygen) as directed continuous. 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:Clay Washer zahra diastolic congestive heart failure (HCC) If [...] hemoglobin A1c goal of 7.0%-8.0% ([facility]) Inject 40-45 units with meals + sliding [...] as of this encounter (statuses as of 01/25/2023) Active Problems Problem Noted Date Type 2 [...] 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/31/2021 Atherosclerosis of [place] coronary arter 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 12/31/2021 [...] Plan: Continue tramadol Abnormality of gait 02/02/[address] [place] [address] 08/19/2014 History of pulmonary [...] as of this encounter (statuses as of 01/25/2023) Resolved Problems Problem Noted Date Resolved Date [...] as of this encounter (statuses as of 01/25/2023) Immunizations Name Administration Dates Next Due COVID-19 mRNA, LNP-s, No Pre serve, 2-Dose Series ([employer]) 01/08/2021,12/18/2020 COVID-19, LNP-s, No Preserve , Navarro-sucrose, Ages 12+ ([employer]) 2022,10/01/2021 Pneumococcal Conjugate Vacci ne, 20-valent ([id number]) 03/12/2022 Pneumococcal Polysaccharide PPV23 (Pneumovax) 08/22/2009,06/15/2006 Seasonal [...] Encounters Date Type Specialty Care Team Description 01/25/2023 Home Visit [facility] Brooke Jose, RN [address] [place] [address] 02/02/2023 [facility] [place] [address] 02/11/2023 Office Visit Family Medicine Galdino Andujar, [address] [place] [place] [address] 05/18/2023 PulmDiagnostic Pulmonary Function [facility], [address] [place] [address] 08/08/2023 Nurse Only Ancillary College, Nurse Annual Wellness Visit [address] [facility] [place] [address] Scheduled Procedures Name Priority Associated Diagnoses Date/Ti me COLONOSCOPY FLEXIBLE PROXIMAL DIAGNOSTIC Recall Colon cancer screening Scheduled Referrals Name Type Priority Associated Diagnoses Orde r Schedule SPINE SURGERY REFERRAL OP Referral Within 10 days (routine) Sacroiliitis, not elsewhere classified (HCC) Ordered: 01/25/2023 Health Maintenance Due Date Last Done Comments Cologuard: Ages 45-75 2000 FOBT: Ages 45-75 2000 Sigmoidoscopy: Ages 45-75 2000 COVID-19 Vaccine (5 - Booster for Pfizer series) 06/08/2022 2022, 10/01/2021, 01/08/2021, Additional history exists CKD PHOS USE SMARTSET 54293 01/07/202312/25, 03/12/2021, 11/17/2020, Additional history exists Mammogram 02/11/2023 02/11/2022, 02/2021, 07/10/2019, Additional history exists HgA1C 05/01/2023 11/01/2022, 04/26, 01/07/2022, Additional history exists DIABETES-EYE EXAM 05/24/2023 05/24/2022, , 04/07/2020, Additional history exists GFR - Renal Function 06/10/2023 12/08/2022, 11/01/2022, 09/13/2022, Additional history exists Albumin/Creatinine Ratio 11/01/2023 023, 01/07/2022, 05/24/2019, Additional history exists CKD HGB USE SMARTSET 77101 11/01/202311/01, 11/01/2022, 06/29/2022, Additional history exists DIABETES-FOOT [...] as of this encounter Visit Diagnoses Diagnosis Sacroiliitis, not elsewhere classified (HCC)- Primary Sacroiliitis, not elsewhere classified documented in this encounter Advance Directives Documents on File Type Date Recorded Patient Metalizer Field Operation Expl anation POLST 03/19/2020 4:25 PM POLST [...] the patient have Health Care Power of Fiber Optic Technician? No Healthcare Agents on File Name Relationship Healthcare Agent Relationship Communication Galdino Camp Other - (no specific identity) Health Care Power of Fiber Optic Technician Princess Allen Other - (no specific identity) Health Care Power of Fiber Optic Technician Care Teams Door Cutter Relationship Specialty Start Date End Date Galdino Andujar, DO [address] [place] [address] PCP - General Internal Medicine 01/07/22 documented as of this encounter
--- OUTSIDE RECORDS SUMMARY | 2023-06-01 04:15 | External Medical Summary | Summary of Care ---
Author Name Unknown Organization [facility] Address [address] [place] [address] Phone [phone] Care Team Providers Care Dispatch Manager Name Role Phone Galdino Andujar DO Primary Care Provider [phone] Reason for Visit * Reason Onset Date Comments Information 01/11/2023 Encounter Details Date Type Department Care Team Description 01/11/2023 Telephone Family Practice [facility] [address] [place] [address] Galdino Andujar DO [address] [place] [address] Information Allergies Active Allergy Reactions [...] as of this encounter (statuses as of 01/13/2023) Medications Medication Sig Dispensed Refills Start Date End Date Status ONETOUCH DELICA LANCETS 33G MISC Check blood sugars 3-4 times daily 180 Each 5 8 Active oxygen GASIndications:ELISSA (obstructive sleep apnea) Use 3 L/min(Oxygen) as directed continuous. 0 0 Active DIURETIC TITRATION PLANIndications:Rebecca lynch diastolic congestive heart failure (HCC) If no improvement on day 3, contact heart failure managing provider. 1 Each 0 0 Active Blood Glucose Monitoring Suppl (ONETOUCH ULTRA [...] at bedtime. 30 Tablet 5 2 Active Sennosides-Docusat e Sodium 8.6-50 MG Oral Tablet (Senokot-S) Take [...] 2 Active Furosemide 40 MG Oral Tablet (Lasix)Indications :Chronic diastolic congestive heart failure (HCC) Take 1.5 Tablets (60 mg) by mouth in the morning and 1.5 Tablets (60 mg) before bedtime. May take 120 mg twice a day for three days when instructed. 120 Tablet 1 2 Active traZODone HCl 100 MG Oral Tablet (Desyrel)Indicatio ns:Primary insomnia Take 1 Tablet by mouth at bedtime. 30 Tablet 5 3 Active NovoLOG FlexPen 100 UNIT/ML Subcutaneous Solution Pen-injector (insulin aspart)Indications :Type 2 diabetes mellitus with hemoglobin A1c goal of 7.0%-8.0% ([facility]) Inject 40-45 units with [...] MUSCLE SPASMS 60 Tablet 1 3 Active Trulicity 4.5 MG/0.5ML Subcutaneous Solution Pen-injector (Dulaglutide) Inject 1 pen under the skin weekly 6 mL 5 2 023 Discontinued(Re fill) Apixaban 5 MG Oral Tablet (Eliquis) Take 1 Tablet (5 mg) by mouth in the morning and 1 Tablet (5 mg) before bedtime. 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 60 Capsule 5 2 023 Discontinued Levothyroxine Sodium 50 MCG Oral Tablet (Levoxyl)Indicatio ns:Hyperparathyroi dism, secondary renal (HCC) TAKE 1 TABLET BY MOUTH DAILY AT LEAST 30 MINUTES PRIOR TO FIRST MEAL OF THE DAY OR OTHER MEDICATIONS 100 Tablet 1 2 023 Discontinued traMADol HCl 50 MG Oral Tablet (Ultram)Indication s:Lumbar radiculopathy,Prim elif osteoarthritis of left knee Take 1 Tablet by mouth every 8 hours as needed for Pain, Severe. 90 Tablet 0 3 023 Discontinued(Re fill) clonazePAM 0.5 MG Oral Tablet (KlonoPIN)Indicati ons:Restless legs syndrome,Anxiety state TAKE 1 TABLET BY MOUTH IN THE MORNING AND AT BEDTIME 60 Tablet 0 3 023 Discontinued Hospital, Clinic, [...] as of this encounter (statuses as of 01/13/2023) Active Problems Problem Noted Date Type 2 [...] 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/31/2021 Atherosclerosis of alutiiq coronary arter 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 12/31/2021 [...] as of this encounter (statuses as of 01/13/2023) Resolved Problems Problem Noted Date Resolved Date Food insecurity 11/08/2022 12/08/2022 Overview: Per [facility] Protocol Type 2 diabetes mellitus wit h diabetic chronic kidney disease 12/31/2021 07/27/2022 Last Assessment & Plan: Last hgba1c 7.6. 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 0202/2023 Acute deep vein thrombosis ( DVT) of [...] inactive term Primary localized osteoarthrosis, lower leg 10/0 05/200811/20/2019 Dyslipidemia, goal LDL below 160 08/16/2007 [...] as of this encounter (statuses as of 01/13/2023) Immunizations Name Administration Dates Next Due COVID-19 mRNA, LNP-s, No Pre serve, 2-Dose Series ([employer]) 01/08/2021,12/18/2020 COVID-19, LNP-s, No Preserve , Navarro-sucrose, Ages 12+ (Pfizer) 2022,10/01/2021 Pneumococcal Conjugate Vacci ne, 20-valent ([id number]) 03/12/2022 Pneumococcal Polysaccharide PPV23 (Pneumovax) 08/22/2009,06/15/2006 Seasonal [...] Miscellaneous Notes * Telephone Encounter - ELISSA Salguero - 01/13/2023 11:17 AM EDT Patient returned called. Asked patient if she would be willing to do an interview, photos, and possibly a video describing her experiences with [facility]. Patient verbalized "Yes" She is in agreement. * Telephone Encounter - ELISSA Salguero - 01/11/2023 12:20 PM EDT Called patient to see if she would be willing to do an interview, photos, and possibly a video describing her experiences with [address] [facility]. The patient did not answer. When the patient returns call please ask. Thank you documented in this encounter Plan of Treatment Upcoming Encounters Date Type Specialty Care Team Description 01/19/2023 PulmDiagnostic Pulmonary Function [facility], [facility] [address] [place] [address] 01/25/2023 Home Visit [facility] Brooke Jose, RN [address] [place] [address] 02/02/2023 Home Visit [facility] Simi Martinez PA-C [address] [place] [address] 02/11/2023 Office Visit Family Medicine Galdino Andujar, [address] [place] [address] 08/08/2023 Nurse Only [employer], Nurse Annual Wellness Visit [facility] [address] [place] [address] Scheduled Procedures Name Priority Associated Diagnoses Date/Ti me COLONOSCOPY FLEXIBLE PROXIMAL DIAGNOSTIC Recall Colon cancer screening Health Maintenance Due Date Last Done Comments Cologuard: Ages 45-75 2000 FOBT: Ages 45-75 2000 Sigmoidoscopy: Ages 45-75 2000 COVID-19 Vaccine (5 - Booster for Pfizer series) 06/08/2022 2022, 10/01/2021, 01/08/2021, Additional history exists CKD PHOS USE SMARTSET 38512 01/07/202312/25, 03/12/2021, 11/17/2020, Additional history exists Mammogram 02/11/2023 02/11/2022, 02/2021, 07/10/2019, Additional history exists HgA1C 05/01/2023 11/01/2022, 04/26, 01/07/2022, Additional history exists DIABETES-EYE EXAM 05/24/2023 05/24/2022, , 04/07/2020, Additional history exists GFR - Renal Function 06/10/2023 12/08/2022, 11/01/2022, 09/13/2022, Additional history exists Albumin/Creatinine Ratio 11/01/2023 023, 01/07/2022, 05/24/2019, Additional history exists CKD HGB USE SMARTSET 06518 11/01/202311/01, 11/01/2022, 06/29/2022, Additional history exists DIABETES-FOOT [...] Documents on File Type Date Recorded Patient Lockstitch Sleeve Setter Expl anation POLST 03/19/2020 4:25 PM POLST [...] the patient have Health Care Power of Icu Nurse? No Healthcare Agents on File Name Relationship Healthcare Agent Relationship Communication Galdino Camp Other - (no specific identity) Health Care Power of Icu Nurse Princess Allen Other - (no specific identity) Health Care Power of Icu Nurse Care Teams Dispatch Manager Relationship Specialty Start Date End Date Galdino Andujar, DO [address] [place] [address] PCP - General Internal Medicine 01/07/22 documented as of this encounter
--- OUTSIDE RECORDS SUMMARY | 2023-06-01 04:15 | External Medical Summary | Summary of Care ---
Author Name Unknown Organization [facility] Address [address] [place] [address] Phone [phone] Care Team Providers Care Temple Marker Name Role Phone Lexii Andujar DO Primary Care Provider [phone] Reason for Visit * Reason Onset Date Comments Medication Refill 09/01/2022 Encounter Details Date Type Department Care Team Description 09/01/2022 Refill Family Practice [address] [facility] [place] [address] [place] [id number] Lexii Andujar DO [address] [place], [place] [id number] Anxiety state Allergies Active Allergy Reactions Severity [...] as of this encounter (statuses as of 01/18/2023) Medications Medication Sig Dispensed Refills Start Date [...] OTHER MEDS 100 Tablet 1 2 Active Trulicity 4.5 MG/0.5ML Subcutaneous Solution Pen-injector (Dulaglutide) Inject 1 pen under the skin weekly 6 mL 5 2 023 Discontinued(Re fill) NovoLOG FlexPen 100 UNIT/ML Subcutaneous Solution Pen-injector (insulin aspart)Indications :Type 2 diabetes mellitus with hemoglobin A1c goal of 7.0%-8.0% ([facility]) Inject 40 units with meals + sliding scale 1 units for every 25 units BG > 150. 121 mL 3 2 023 Discontinued oxyCODONE-Acetamin ophen 5-325 MG Oral Tablet (Percocet)Indicati ons:Lumbar radiculopathy,Spin al stenosis of lumbar region without neurogenic claudication Take by mouth 1 Tablet every 12 hours as needed for Pain, Severe. 60 Tablet 0 2 023 Discontinued(Me dication/Dose Changed) clonazePAM 0.5 MG Oral Tablet (KlonoPIN)Indicati ons:Anxiety state Take 1 Tablet (0.5 mg) by mouth in the morning and 1 Tablet (0.5 mg) before bedtime. 60 Tablet 0 2 022 Discontinued(Re fill) Apixaban 5 MG Oral Tablet (Eliquis) Take 1 Tablet (5 mg) by mouth in the morning and 1 Tablet (5 mg) before bedtime. 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 45 Tablet 5 2 022 Discontinued(Re fill) Gabapentin 100 MG Oral Capsule (Neurontin)Indicat ions:Fibromyalgia, Restless legs syndrome Take 2 Capsules (200 mg) by mouth at bedtime. 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 60 Capsule 5 2 023 Discontinued Omeprazole 20 MG Oral Capsule Delayed ReleaseIndications :Gastroesophageal reflux disease with esophagitis without hemorrhage Take 1 Capsule (20 mg) by mouth in the morning. 30 Capsule 3 2 023 Discontinued traZODone HCl 50 MG Oral Tablet (Desyrel) Take 1 Tablet (50 mg) by mouth at bedtime. 30 Tablet 5 2 023 Discontinued(Me dication/Dose Changed) Levothyroxine Sodium 50 MCG Oral Tablet (Levoxyl)Indicatio ns:Hyperparathyroi dism, secondary renal (HCC) TAKE 1 TABLET BY MOUTH DAILY AT LEAST 30 MINUTES PRIOR TO FIRST MEAL OF THE DAY OR OTHER MEDICATIONS 100 Tablet 1 2 023 Discontinued clonazePAM 0.5 MG Oral Tablet (KlonoPIN)Indicati ons:Anxiety state Take 1 Tablet (0.5 mg) by mouth in the morning and 1 Tablet (0.5 mg) before bedtime. 60 Tablet 0 2 022 Discontinued(Re fill) documented as of this encounter (statuses as of 01/18/2023) Active Problems Problem Noted Date Type 2 [...] 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/31/2021 Atherosclerosis of hopi coronary arter 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 12/31/2021 [...] Plan: Continue tramadol Abnormality of gait 02/02/[address] 08/19/2014 History of pulmonary [...] as of this encounter (statuses as of 01/18/2023) Resolved Problems Problem Noted Date Resolved Date [...] as of this encounter (statuses as of 01/18/2023) Immunizations Name Administration Dates Next Due COVID-19 mRNA, LNP-s, No Pre serve, 2-Dose Series ([employer]) 01/08/2021,12/18/2020 COVID-19, LNP-s, No Preserve , Navarro-sucrose, Ages 12+ (Pfizer) 2022,10/01/2021 Pneumococcal Conjugate Vacci ne, 20-valent ([id number]) 03/12/2022 Pneumococcal Polysaccharide PPV23 (Pneumovax) 08/22/2009,06/15/2006 Seasonal [...] Telephone Encounter - Lexii Andujar DO - 09/06/2022 1:40 PM ESTSigned Prescriptions: Disp Refills clonazePAM 0.5 MG Oral Tablet (KlonoPIN) 60 Tab*0 Sig: Take 1 Tablet (0.5 mg) by mouth in the morning and 1 Tablet (0.5 mg) before bedtime. Authorizing Provider: LEXII ANDUJAR * Telephone Encounter - Lexii Andujar DO - 09/06/2022 1:34 PM EST I have reviewed the patients controlled substance dispensing history in the Prescription Drug Monitoring Program in compliance with the [facility] regulations before prescribing a controlled substance. Last Tox Screen Results: No results found. However, due to the size of the patient record, not all encounters were searched.Please check Results Review for a complete set of results. Medication is due * Telephone Encounter - Shira Gross LPN - 09/01/2022 3:31 PM ESTPending Prescriptions: Disp Refills clonazePAM 0.5 MG Oral Tablet (KlonoPIN) 60 Tab*0 Sig: Take 1 Tablet (0.5 mg) by mouth in the morning and 1 Tablet (0.5 mg) before bedtime. * Telephone Encounter - Shira Gross LPN - 09/01/2022 3:28 PM EST Did you pend patient's preferred pharmacy and medication before forwarding?yes Pharmacy: [facility] [address] Pending Prescriptions: Disp Refills clonazePAM 0.5 MG Oral Tablet (KlonoPIN) 60 Tab*0 Sig: Take 1 Tablet (0.5 mg) by mouth in the morning and 1 Tablet (0.5 mg) before bedtime. Last Visit: 08/30/2022 (in office), 07/27/2022 (telemedicine) Next Visit: 09/13/2022 If no future appointments scheduled, and last appointment is greater than a year ago, please schedule patient for a follow-up appointment Last date the medication was ordered: 08/10/2022 Is this request for a controlled substance?Yes, What was the last refill date per script w/ quantity per script and dosage per script and Urine Drug Screen Not completed Urine Drug Screen:No results found. However, due to the size of the patient record, not all encounters were searched. Please check Results Review for a complete set of results. Patient Phone Numbers Labs: Lab Results Component Value Date/Time CREAT 1.5 (H) 08/13/2022 09:02 AM CREAT 1.54 (A) 12/26/2021 12:00 AM CREAT 2.0 (H) 05/06/2020 08:46 AM POTASSIUM 4.0 08/13/2022 09:02 AM POTASSIUM 3.6 12/26/2021 12:00 AM POTASSIUM 4.0 05/06/2020 08:46 AM TSH 0.95 01/07/2022 11:56 AM TSH 5.35 (H) 05/06/2020 08:46 AM LDLCALC 120 07/02/2022 03:11 PM LDLCALC UNINTERPRETABLE RESULT 03/14/2019 01:54 PM LDLDIRECT 126 03/14/2019 01:54 PM LDLDIRECT 109 07/14/2017 12:35 PM ALT 22 06/18/2022 03:21 PM ALT 27 05/06/2020 08:46 AM HGBA1C 7.6 (H) 05/12/2022 03:04 PM HGBA1C 7.3 (H) 01/23/2020 11:11 AM * Telephone Encounter - Migdalia Francoiserle, ELISSA - 09/01/2022 9:58 AM EST Patient called in requesting medication refill. Pending Prescriptions: Disp Refills clonazePAM 0.5 MG Oral Tablet (KlonoPIN) 60 Tab*0 Sig: Take 1 Tablet (0.5 mg) by mouth in the morning and 1 Tablet (0.5 mg) before bedtime. Last Visit: 08/30/2022 (in office), 07/27/2022 (telemedicine) Next Visit: 09/13/2022 Last date the medication was ordered: * Patient Active Problem List Diagnosis Code Dyslipidemia E78.5 Postsurgical hypothyroidism E89.0 ELISSA (obstructive sleep apnea) G47.33 Venous insufficiency I87.2 Essential hypertension with goal blood pressure less than 140/90 I10 History of pulmonary embolus (PE) Z86.711 Statin intolerance Z78.[address] Z95.828 Fibromyalgia M79.7 Abnormality of gait R26.9 Restless legs syndrome G25.81 Gastroesophageal reflux disease with esophagitis K21.00 Morbid obesity with BMI of 50.0-59.9, adult ([facility]) E66.01, Z68.43 Controlled substance agreement signed Z79.899 Chronic diastolic congestive heart failure ([facility]) I50.32 Lumbar radiculopathy M54.16 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 saplf8m chronic kidney disease ([facility]) I13.0, I50.32, N18.32 Hyperparathyroidism, secondary renal ([facility]) N25.81 Vasculitis ([facility]) I77.6 Primary osteoarthritis of left knee M17.12 Spinal stenosis of lumbar region without neurogenic claudication M48.061 Heparin 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) D75.829 Atherosclerosis of hopi coronary arter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 I25.10 Carotid artery stenosis, asymptomatic, right I65.21 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 Encounter for long-term (current) use of other medications Z79.899 Type 2 diabetes mellitus with stage 3b chronic kidney disease ([facility]) E11.22, N18.32 Type 2 diabetes mellitus with hemoglobin A1c goal of less than 8.0% ([facility]) E11.9 Recurrent deep vein thrombosis (DVT) of both lower extremities ([facility]) I82.403 Chronic hypoxemic respiratory failure ([facility]) J96.11 Chronic kidney disease, stage 3b ([facility]) N18.32 ILD (interstitial lung disease) ([facility]) J84.9 Moderate episode of recurrent major depressive disorder ([facility]) F33.1 Primary osteoarthritis of both knees M17.0 Labs: Lab Results Component Value Date/Time CREATININE - [facility] 1.5 (H) 08/13/2022 09:02 AM CREATININE - [facility] 2.0 (H) 05/06/2020 08:46 AM CREATININE JOHNNY 50 09/04/2018 02:27 PM CREATININE, RANDOM URINE - [facility] 74 01/07/2022 12:06 PM CREATININE, RANDOM URINE - [facility] 52 12/24/2019 07:28 AM CREATININE-OUTSIDE LAB 1.54 (A) 12/26/2021 12:00 AM Lab Results Component Value Date/Time POTASSIUM - [facility] 4.0 08/13/2022 09:02 AM POTASSIUM - [facility] 4.0 05/06/2020 08:46 AM POTASSIUM-OUTSIDE LAB 3.6 12/26/2021 12:00 AM Lab Results Component Value Date/Time TSH - [facility] 0.95 01/07/2022 11:56 AM TSH - [facility] 5.35 (H) 05/06/2020 08:46 [...] Results Component Value Date/Time ALT - [facility] 22 06/18/2022 03:21 PM ALT - [facility] 27 05/06/2020 08:46 AM ALT-OUTSIDE LAB 31 05/21/2017 12:00 AM Hemoglobin AIC Results: Lab Results Component Value Date/Time HEMOGLOBIN A1C - [facility] 7.6 (H) 05/12/2022 03:04 PM HEMOGLOBIN A1C - [facility] 7.8 (H) 01/07/2022 11:56 AM HEMOGLOBIN A1C - [facility] 8.3 (H) 11/17/2020 01:00 PM HEMOGLOBIN A1C - [facility] 7.3 (H) 01/23/2020 11:11 AM HEMOGLOBIN A1C - [facility] 8.3 (H) 11/07/2019 03:04 PM HEMOGLOBIN A1C - [facility] 9.4 (H) 08/09/2019 11:02 AM documented in this encounter Plan of Treatment Upcoming Encounters Date Type Specialty Care Team Description 01/19/2023 PulmDiagnostic Pulmonary Function [facility], [facility] [address] [place] [address] 01/25/2023 Home Visit [facility] Brooke Jose, RN [address] [place] [address] 02/02/2023 Home Visit [facility] Simi Martinez PA-C [address] [place] [address] 02/11/2023 Office Visit Family Medicine Lexii Andujar, [address] [facility], [place] [address] 08/08/2023 Nurse Only [employer], Nurse Annual Wellness Visit [facility] [address] [place] [address] Scheduled Procedures Name Priority Associated Diagnoses Date/Ti me COLONOSCOPY FLEXIBLE PROXIMAL DIAGNOSTIC Recall Colon cancer screening Health Maintenance Due Date Last Done Comments Cologuard: Ages 45-75 2000 FOBT: Ages 45-75 2000 Sigmoidoscopy: Ages 45-75 2000 COVID-19 Vaccine (5 - Booster for Pfizer series) 06/08/2022 2022, 10/01/2021, 01/08/2021, Additional history exists CKD PHOS USE SMARTSET 41423 01/07/202312/25, 03/12/2021, 11/17/2020, Additional history exists Mammogram 02/11/2023 02/11/2022, 02/2021, 07/10/2019, Additional history exists HgA1C 05/01/2023 11/01/2022, 04/26, 01/07/2022, Additional history exists DIABETES-EYE EXAM 05/24/2023 05/24/2022, , 04/07/2020, Additional history exists GFR - Renal Function 06/10/2023 12/08/2022, 11/01/2022, 09/13/2022, Additional history exists Albumin/Creatinine Ratio 11/01/2023 023, 01/07/2022, 05/24/2019, Additional history exists CKD HGB USE SMARTSET 26236 11/01/202311/01, 11/01/2022, 06/29/2022, Additional history exists DIABETES-FOOT [...] as of this encounter Visit Diagnoses Diagnosis Anxiety state Anxiety state, unspecified documented in this encounter Additional Health Concerns Infection Onset Date Last Indicated Resolved Time Respiratory Rule-Out 10/11/2022 10/11/2022 023 6:36 PM EST documented as of this encounter Advance Directives Documents on File Type Date Recorded Patient Technical Inspector Expl anation POLST 03/19/2020 4:25 PM POLST [...] the patient have Health Care Power of Health And Wellness Coordinator? No Healthcare Agents on File Name Relationship Healthcare Agent Relationship Communication Lexii Camp Other - (no specific identity) Health Care Power of Health And Wellness Coordinator Princess Allen Other - (no specific identity) Health Care Power of Health And Wellness Coordinator Care Teams Temple Marker Relationship Specialty Start Date End Date Lexii Andujar, DO [address] [place] [address] PCP - General Internal Medicine 01/07/22 documented as of this encounter
--- OUTSIDE RECORDS SUMMARY | 2023-06-01 04:15 | External Medical Summary | Summary of Care ---
Author Name Unknown Organization [facility] Address [address] [place] [address] Phone [phone] Care Team Providers Care Machine Feeder Floorperson Name Role Phone ZiaandrewsGaldino DO Primary Care Provider [phone] Reason for Visit * Reason Onset Date Comments Appointment 01/25/2023 Encounter Details Date Type Department Care Team Description 01/25/2023 Telephone [facility], [facility] [address] [facility] [place] [address] Services, Scheduling [address] [place] [address] Appointment (//) Allergies Active Allergy Reactions Severity [...] directed continuous. 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 Ahn at [facility] at [phone] s/w Tenn[place] she advised they need to s/w the pt advised will have pt give them a call.. Calleds/w pt I advised her what Tennille advised she states she will call Dr. Ahn office. documented in this encounter Plan of Treatment Upcoming Encounters Date Type Specialty Care Team Description 01/25/2023 Home Visit [facility] Brooke Jose RN [address] [place] [address] 02/02/2023 Home Visit [facility] Simi Martinez PA-C [address] [place] [address] 02/11/2023 Office Visit Family Medicine Galdino Andujar, DO [address] [facility] [place] [address] 03/02/2023 Home Visit [facility] Brooke Jose, RN [address] [facility] [place] [address] 05/18/2023 PulmDiagnostic Pulmonary Function West, Pft [address] [facility] [place] [address] 08/08/2023 Nurse Only [employer], Nurse Annual Wellness Visit [address] [facility] [address] [facility], [place] [address] Scheduled Procedures Name Priority Associated Diagnoses Date/Ti me COLONOSCOPY FLEXIBLE PROXIMAL DIAGNOSTIC Recall Colon cancer screening Health Maintenance Due Date Last Done Comments Cologuard: Ages 45-75 2000 FOBT: Ages 45-75 2000 Sigmoidoscopy: Ages 45-75 2000 COVID-19 Vaccine (5 - Booster for Pfizer series) 06/08/2022 2022, 10/01/2021, 01/08/2021, Additional history exists CKD PHOS USE SMARTSET 88766 01/07/202312/25, 03/12/2021, 11/17/2020, Additional history exists Mammogram 02/11/2023 02/11/2022, 02/2021, 07/10/2019, Additional history exists HgA1C 05/01/2023 11/01/2022, 04/26, 01/07/2022, Additional history exists DIABETES-EYE EXAM 05/24/2023 05/24/2022, , 04/07/2020, Additional history exists GFR - Renal Function 06/10/2023 12/08/2022, 11/01/2022, 09/13/2022, Additional history exists Albumin/Creatinine Ratio 11/01/2023 023, 01/07/2022, 05/24/2019, Additional history exists CKD HGB USE SMARTSET 62265 11/01/202311/01, 11/01/2022, 06/29/2022, Additional history exists DIABETES-FOOT [...] Documents on File Type Date Recorded Patient Dental Aide Expl anation POLST 03/19/2020 4:25 PM POLST [...] the patient have Health Care Power of Mobility Specialist? No Healthcare Agents on File Name Relationship Healthcare Agent Relationship Communication Galdino Camp Other - (no specific identity) Health Care Power of Mobility Specialist Princess Thrashery Other - (no specific identity) Health Care Power of Mobility Specialist Care Teams Machine Feeder Floorperson Relationship Specialty Start Date End Date Galdino Andujar, DO [address] [place] [address] PCP - General Internal Medicine 01/07/22 documented as of this encounter
--- OUTSIDE RECORDS SUMMARY | 2023-06-01 04:15 | External Medical Summary | Summary of Care ---
Author Name Unknown Organization [facility] Address [address] [place] [address] Phone [phone] Care Team Providers Care Systems Architect Name Role Phone Galdino Andujar DO Primary Care Provider [phone] Reason for Visit * Reason Comments [facility]: Maintenance Encounter Details Date Type Department Care Team Description 01/25/2023 Home Visit [facility], [facility] [address] [place] [address] Brooke Jose, RN [address] [place] [address] Allergies Active Allergy Reactions Severity Noted Date [...] directed continuous. 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/31/2021 Atherosclerosis of [place] coronary arter 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 12/31/2021 [...] Plan: Continue tramadol Abnormality of gait 02/02/[address] [place] [address] 08/19/2014 History of pulmonary embolus (PE) 2013 Last Assessment & Plan: Continue Eliquis Statin intolerance 07/16/2014 Essential hypertension with goal blood p ressure less than 140/90 02/22/2014 Last Assessment & Plan: BP stable -continue diuretics Venous insufficiency 02/07/2013 ELISSA (obstructive sleep apnea) 09/16/2011 Overview: CPAP 11 cwp Mild, AHI 11.3 but with significant nocturnal hypoxemia Dickthaddeus Last Assessment & Plan: Compliant with CPAP [...] mRNA, LNP-s, No Pre serve, 2-Dose Series ([employer] 01/08/2021,12/18/2020 COVID-19, LNP-s, No Preserve , Navarro-sucrose, Ages 12+ (Pfizer) 2022,10/01/2021 Pneumococcal Conjugate Vacci ne, 20-valent ([id number]) 03/12/2022 Pneumococcal Polysaccharide PPV23 (Pneumovax) 08/22/2009,06/15/2006 Seasonal [...] Sign Reading Time Taken Comments Blood Pressure 134/76 01/25/2023 1:20 PM EDT Pulse 105 01/25/2023 1:20 PM EDT Temperature 36.9 C (98.5 F) 01/25/2023 1:20 PM ED T Respiratory Rate 18 01/25/2023 1:20 PM EDT Oxygen Saturation 93% 01/25/2023 1:20 PM EDT 3lnc Inhaled Oxygen Concentration - - Weight 142.4 kg (314 lb) 01/25/2023 1:20 PM EDT Height - - Body Mass Index 52.25 12/08/2022 2:34 PM EDT documented in this encounter Progress Notes * Brooke Jose RN - 01/25/2023 11:32 AM EDT [facility] Therapeutic Radiologist Monthly Visit Date: 01/25/2023 Time: 11:32 AM Name: Stephanie Camp : 1955 Situation: return Background: [facility] Enrollment Date: 06/14/22- [facility] PMHx: [place] filter, CHF, CHF, DVT, venous insufficiency, vasculitis, CAD, carotid stenosis, chronic hypoxemic respiratory failure, ELISSA, o2 dependent, GERD, DM, Hx PE, spinal stenosis A1C 11/01/22: 6.9 [facility] OF 11/22/22, QUIT DRIVING Utilization: 07/16 - - [facility] Admission - falls, acute on chronic CHF, acute on chronic respiratory failure,cellulitis R hand d/t cat bite 07/29 - 03/17 - [facility] - acute on chronic resp fx with hypoxia, UTI, chronic diastolic HF, d/c home on doxycycline and cefdinir 09/06/22 - Acute [facility] HV -DTP initiated, keflex for cellulitis, urine culture was negative 09/19/22 - [facility] ER - abdominal pain, CT negative, no changes 10/11/22 - Acute visit for respiratory viral swab - negative 10/25/22 - Acute call to [facility] - n/v/d, vertigo 01/14/23 - prednisone x5 days for sciatica (by pcp) Living Situation: [facility] Medication Management: pill packs from [facility] ACP: updated 12/24/22 [facility] Provider Visit: 08/10/22, 11/22/22 - message to scheduling to get pt scheduled to see Simi Martinez Assessment: Has not been sleeping well Dealing with sciatica and it keeps her up at night No longer taking gabapentin and pain worse without it Has gabapentin in home several times b/c pain was intolerable Tearful when discussing pain Reports fibromyalgia has been bad as well Pain 7/10 during day, 9/10 at night with leg cramping, skin sensitivity and ''pounding in my feet'' Taking tramadol 50mg 2x/day but can take q8h Not taking tylenol, ''doesn't help'' Taking Motrin 400mg most nights at bedtime - advised not to use d/t kidney fx and risk for gi bleed Not taking ''b/c I get sick of taking pills'' Agreed to take q8h until has pain better managed Has had injections in back in past Requesting new referral to see Dr. Ahn again - order placed TT to Scheduling Role for apt Wt Readings from Last 7 Encounters: 12/24/22 (!) 142.4 kg (314 lb) 12/08/22 (!) 143.5 kg (316 lb 4.8 oz) 11/29/22 (!) 143.6 kg (316 lb 9.6 oz) 11/22/22 (!) 142 kg (313 lb) 11/04/22 (!) 142 kg (313 lb) 11/01/22 (!) 143.8 kg (317 lb) 10/11/22 (!) 138.8 kg (306 lb) Lungs dim in bases but CTA throughout Abdomen soft +1 b/l le pitting edema Breathing at baseline Wearing cpap with o2 at hs bsgs running low 100's to high 250's Having difficulty getting Dexcom supplies Will notify Pharmacist Using glucometer at this time Recommendation: Take apap 1000mg q8h Avoid all nsaids d/t kidney function, risk for bleeding Physical Exam: LMP 03/11/2003 Pain 7 Physical Exam Constitutional: Appearance: She is obese. HENT: Head: Normocephalic. Mouth/Throat: Mouth: Mucous membranes are moist. Eyes: Extraocular Movements: Extraocular movements intact. Cardiovascular: Rate and Rhythm: Tachycardia present. Heart sounds: No murmur heard. Pulmonary: Comments: Few crackles at the bases bilaterally. No tachypnea Abdominal: General: Bowel sounds are normal. Palpations: Abdomen is soft. Musculoskeletal: Cervical back: Neck supple. Comments: Trace pitting edema BLE RLE chronicially bigger than the left No erythema Skin: General: Skin is warm and dry. Neurological: General: No focal deficit present. Mental Status: She is alert and oriented to person, place, and time. Gait: Gait abnormal. Problems/Symptoms: Review of Systems Constitutional: Negative. HENT: [...] Negative for dizziness. Hematological: Bruises/bleeds easily. Psychiatric/Behavioral: Negative. All other systems reviewed and are negative. Medication Reconciliation: (See medication list) Does patient take medications as ordered: Yes Patient Well Being: No change in living situation [facility] Completed this Visit: No. Routine visit and [...] if at night -increased fatigue or vertigo Instructed to eat a healthy, well-balanced diet. Be cognizant of foods high in sugar and carbohydrates. Increase physical activity, take all medications as directed, monitor blood glucose twice a day. Check blood glucose once before breakfast (fasting) and once two hours after a meal (post-prandial), document and take readings to next PCP visit. Report consistently elevated or low readings. Goal is <130mg/dl fasting and <180mg/dl post-prandial. Target A1C is <7%. Reinforced safety education and fall prevention. and Reinforced medication regimen. Timing., Dosing. and Purspose. Treatment/Plan: Ortho referral placed 01/25/23 for back pain management INSTRUCT AT EACH VISIT: CALL [facility] PRIOR TO GOING TO ER FOR ANY REASON USES PILL PACKS FROM [employer] [facility] as of 08/03/22 - 313lbs Has [facility] scales - to weigh daily Frequent UTI's - typically asymptomatic until has fever, has standing order for urine culture Ambulate with roller walker at ALL times o2 2lnc at rest, 4Lnc with activity - [facility] [phone] WEAR O2 AT ALL TIMES OR BECOMES [...] of SI joints Patient's Goals of Care: Find Dexcom Find scale Unpack and organize apt Patient's 'Red Flags': Unable to wear o2 for any reason (leads to falls) Wt increase to 337lbs Increased sob Abdominal pain Home Interventions Provided: Specialty Referral Placed Consulted PCP/Specialist Reinforced current Plan of Care, including self-management and medication regimen Updated Exacerbation Plan Patient Needs to Remember: Call [facility] with red flags Referrals Needed: Other Orthopedics for back pain mgmt Follow Up: Is there cellular connectivity/connectivity in the home? Yes Does the patient have internet in the home? Yes Patient encouraged to call the intake phone number for all urgent but not emergent issues. Is the patient new to [facility] within the last 30 days? No, Assess appropriateness for upcoming telehealth visits. Cancel telehealth visits & schedule home visit with care sales team recruiter(s)as indicated. Provider is in agreement with Plan of Care: Yes Scheduled to follow up with patient 03/02/23 Brooke Jose RN 01/25/2023 11:32 AM documented in this encounter Plan of Treatment Upcoming Encounters Date Type Specialty Care Team Description 02/02/2023 [facility] Visit [facility]C [address] [facility] [place] [address] 02/11/2023 Office Visit Family Medicine Galdino Andujar, DO [address] [facility] [place] [address] 03/02/2023 [facility] Visit [facility]oke Jose [facility] [address] [facility] [place] [address] 05/18/2023 PulmDiagnostic Pulmonary Function West, Pft [address] [facility] [place] [address] 08/08/2023 Nurse Only Ancillary College, Nurse Annual Wellness Visit [address] [place] [address] Scheduled Procedures Name Priority Associated Diagnoses Date/Ti me COLONOSCOPY FLEXIBLE PROXIMAL DIAGNOSTIC Recall Colon cancer screening Health Maintenance Due Date Last Done Comments Cologuard: Ages 45-75 2000 FOBT: Ages 45-75 2000 Sigmoidoscopy: Ages 45-75 2000 COVID-19 Vaccine (5 - Booster for Pfizer series) 06/08/2022 2022, 10/01/2021, 01/08/2021, Additional history exists CKD PHOS USE SMARTSET 70465 01/07/2023 0412/2021, 03/12/2021, 11/17/2020, Additional history exists Mammogram 02/11/2023 02/11/2022, /0 02/2021, 07/10/2019, Additional history exists HgA1C 05/01/2023 11/01/2022, 04/26, 01/07/2022, Additional history exists DIABETES-EYE EXAM 05/24/2023 05/24/2022, , 04/07/2020, Additional history exists GFR - Renal Function 06/10/2023 12/08/2022, 11/01/2022, 09/13/2022, Additional history exists Albumin/Creatinine Ratio 11/01/2023 023, 01/07/2022, 05/24/2019, Additional history exists CKD HGB USE SMARTSET 60473 11/01/202311/01, 11/01/2022, 06/29/2022, Additional history exists DIABETES-FOOT [...] Documents on File Type Date Recorded Patient Media Producer Expl anation POLST 03/19/2020 4:25 PM POLST [...] the patient have Health Care Power of Herb Doctor? No Healthcare Agents on File Name Relationship Healthcare Agent Relationship Communication Galdino Camp Other - (no specific identity) Health Care Power of Herb Doctor Princess Other - (no specific identity) Health Care Power of Herb Doctor Care Teams Systems Architect Relationship Specialty Start Date End Date Galdino Andujar, DO [address] [facility] [place] [address] PCP - General Internal Medicine 01/07/22 documented as of this encounter
--- OUTSIDE RECORDS SUMMARY | 2023-06-01 04:15 | External Medical Summary | Summary of Care ---
Author Name Unknown Organization [facility] Address [address] [place] [address] Phone [phone] Care Team Providers Care Motorcycle Tester Name Role Phone Galdino Andujar DO Primary Care Provider [phone] Encounter Details Date Type Department Care Team Description 02/02/2023 Home Visit [facility] [address] [place] [id number] Simi Martinez PA-C [address] [place] [address] Advanced care planning/counseling discussion*; Atherosclerosis of eastern shoshone coronary artery of eastern shoshone heart without angina pectoris; [place] filter in place; 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 3b chronic kidney disease ([facility]); Recurrent deep vein thrombosis (DVT) of both lower extremities ([facility]); Chronic hypoxemic respiratory failure ([facility]); Gastroesophageal reflux disease with esophagitis without hemorrhage; Sacroiliitis, not elsewhere classified ([facility]); Postsurgical hypothyroidism; Type 2 diabetes mellitus with stage 3b chronic kidney disease, with long-term current use of insulin ([facility]); History of pulmonary embolus (PE); Moderate episode of recurrent major depressive disorder ([facility]); Spinal stenosis of lumbar region without neurogenic claudication Allergies Active Allergy Reactions Severity [...] as of this encounter (statuses as of 02/03/2023) Medications Medication Sig Dispensed Refills Start Date End Date Status ONETOUCH DELICA LANCETS 33G MISC Check blood sugars 3-4 times daily 180 Each 5 08/01/2018 Active oxygen GASIndications:ELISSA (obstructive sleep apnea) Use 3 L/min(Oxygen) as directed continuous. 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) 0 12/31/2021 Atherosclerosis of eastern shoshone coronary arter 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 [...] as of this encounter (statuses as of 02/03/2023) Resolved Problems Problem Noted Date Resolved Date [...] as of this encounter (statuses as of 02/03/2023) Immunizations Name Administration Dates Next Due COVID-19 mRNA, LNP-s, No Pre serve, 2-Dose Series (Pfizer) 01/08/2021,12/18/2020 COVID-19, LNP-s, No Preserve , Navarro-sucrose, Ages 12+ (Pfizer) 2022,10/01/2021 Pneumococcal Conjugate Vacci ne, 20-valent (Geubxhg19) 03/12/2022 Pneumococcal Polysaccharide PPV23 (Pneumovax) 08/22/2009,06/15/2006 Seasonal [...] Sign Reading Time Taken Comments Blood Pressure 115/68 02/02/2023 4:29 PM EDT Pulse 93 02/02/2023 4:29 PM EDT Temperature 36.3 C (97.3 F) 02/02/2023 4:29 PM ED T Respiratory Rate 18 02/02/2023 4:29 PM EDT Oxygen Saturation 98% 02/02/2023 4:29 PM EDT Inhaled Oxygen Concentration - - Weight 142 kg (313 lb) 02/02/2023 4:29 PM EDT Height - - Body Mass Index 52.09 12/08/2022 2:34 PM EDT documented in this encounter Progress Notes * Simi Martinez PA-C - 02/02/2023 4:18 PM EDT Images from the original note were not included. [facility] at Home Problem Oriented Charting Provider Visit Date: 02/02/2023 Time: 4:18 PM [facility] Sub-Program: Primary Care at Home [facility] Episode Start Date: Noted: 06/14/2022 Assessment and Plan Advanced care planning/counseling discussion Atherosclerosis of eastern shoshone coronary artery of eastern shoshone heart without angina pectoris Assessment & Plan: No chest pain. Stable. -continue Eliquis -likely no Wili or beta-faviola due to hypotension. Statin intolerance [place] filter in place 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 3b chronic kidney disease (HCC) Assessment & Plan: Current Status: "Stable" for patient / At or near baseline Degree of Condition Awareness: Demonstrates very good awareness of condition, disease course, and prognosis "RED FLAG" HF Symptoms: o NO IDENTIFIED SYMPTOMS Current Heart Failure Classifications: o With ordinary activity such as doing housework, yard work or shopping ([place] [facility] [employer]) Diagnostic Review: Recent Labs Units 12/08/22 [...] o Anticipated IV Lasix dose: 80 mg Recurrent deep vein thrombosis (DVT) of both lower extremities (HCC) Assessment & Plan: Continue Eliquis Chronic hypoxemic respiratory failure ([facility]) Assessment & Plan: At baseline. -continue O2 3 L at all times. Gastroesophageal reflux disease with esophagitis without hemorrhage Assessment & Plan: Continue omeprazole Sacroiliitis, not elsewhere classified (HCC) Assessment & Plan: Has been having more back pain as of recently. Taking tramadol with minimal relief. Finished a course of steroids. No longer taking gabapentin due to other medication interactions. -has an appointment with her pain doctor next week -will also discuss pain control with her PCP next week Postsurgical hypothyroidism Assessment & Plan: TSH 1.1 in 11/18 -continue Synthroid Type 2 diabetes mellitus with stage 3b chronic kidney disease, with long-term current use of insulin ([facility]) Assessment & Plan: Last hemoglobin A1c 6.9 [...] worse due to steroids. Intolerant to Wili/Arb/statin History of pulmonary embolus (PE) Assessment & Plan: Continue Eliquis Moderate episode of recurrent major depressive disorder (HCC) Assessment & Plan: Mood appropriate and stable on duloxetine Spinal stenosis of lumbar region without neurogenic claudication Assessment & Plan: Plan as noted above Additional Medical Decision Making: Stepahnie is doing ok at home. BP is an issue. Seeing pain/PCP next week. Next [facility] provider visit 3 months-->? Graduate is stable til then Scheduled appointments in the next 60 days: Future Appointments-next 60 days Date/Time Provider Specialty Dept Phone 02/10/2023 3:40 PM (Arrive by 3:25 PM) Raj Ahn, DO Pain Medicine [phone] 02/11/2023 11:20 AM (Arrive by 11:05 AM) Galdino Andujar, DO Family Medicine [phone] 03/02/2023 11:30 AM Brooke Jose RN [facility] [phone] 05/18/2023 10:30 AM [facility] [place] [facility] [phone] 08/08/2023 2:00 PM Nurse Annual Wellness Visit [address] [place] [address] A total of 45 minutes was spent face to face (via video-based telemedicine if designated as a telemedicine visit) Subjective Subjective Is this a Telemedicine Visit? No, this is an Home Visit. Reason For [facility] Visit: Follow-Up Current Concerns: Stephanie Camp is a 67 year old female seen today for a [facility] provider visit. Today's concerns are: Back pain: Ongoing low back pain down both legs. Taking tramadol with minimal relief. No new injury. Seeing Dr. Ahn from pain on the . Also seeing Dr. Andujar next week Breathing has been good. Weighing daily. 313 this am. No fever or cough. No dizziness/lightheadedness. No falls. Using rollator No CP DM. Blood sugars running in the high 100s to 200s. They were slightly higher than that as she recently took prednisone for her back. They have come down since being off of prednisone. Last [id number] 6.9 Additional Review of Systems All other systems reviewed and are negative. Objective Objective Vitals: 02/02/23 1629 Temp: 36.3 C (97.3 F) Pulse: 93 Resp: 18 SpO2: 98% BP: BP Readings from Last 3 Encounters: 02/02/23 115/68 01/25/23 134/76 12/24/22 128/54 Wt Readings from Last 3 Encounters: 02/02/23 (!) 142 kg (313 lb) 01/25/23 (!) 142.4 kg (314 lb) 12/24/22 (!) 142.4 kg (314 lb) Last Weights: Wt Readings from Last 3 Encounters: 02/02/23 (!) 142 kg (313 lb) 01/25/23 (!) 142.4 kg (314 lb) 12/24/22 (!) 142.4 kg (314 lb) Last BPs: BP Readings from Last 4 Encounters: 02/02/23 115/68 01/25/23 134/76 12/24/22 128/54 12/08/22 116/70 Physical Exam Constitutional: Appearance: She is obese. [...] and oriented to person, place, and time. Psychiatric: Mood and Affect: Mood normal. Lab Review: I have reviewed the following results: BMP results Recent Labs Units 12/08/22 1515 11/01/22 1413 09/13/22 1410 08/13/22 0902 SODIUM - [facility] mmol/L -- 139 140 141 POTASSIUM - [facility] mmol/L -- 4.5 4.4 4.0 CHLORIDE - [facility] mmol/L -- 96* 96* 97* CO2 - [facility] mmol/L -- 31 33* 30 CREATININE - [facility] mg/dL 1.7* 1.6* 1.5* 1.5* BUN - [facility] mg/dL 25* 25* 20 26* Lipid panel results Recent Labs Units 07/02/22 1511 CHOLESTEROL - [facility] mg/dL 208* LDL CHOLESTEROL (CALCULATED) - [facility] mg/dL 120 HDL CHOLESTEROL - [facility] mg/dL 44* TRIGLYCERIDES - [facility] mg/dL 220* CBC results Recent Labs Units 11/01/22 1413 06/29/22 0813 01/07/22 1156 WBC AUTO - [facility] K/uL 11.31* 12.26* 11.57* HGB - [facility] g/dL 13.3 13.9 13.9 HCT - [facility] % 43.5 44.9 45.1 PLATELET AUTO - [facility] K/uL 339 343 289 HbA1c results Recent Labs Units 11/01/22 1413 05/12/22 1504 01/07/22 1156 HEMOGLOBIN A1C - [facility] % 6.9* 7.6* 7.8* TSH results Recent Labs Units 11/01/22 1413 01/07/22 1156 TSH - [facility] uIU/mL 1.10 0.95 Vitamin D results Recent Labs Units 11/01/22 1413 07/02/22 1511 03/12/21 1500 25-HYDROXY VITAMIN D - [facility] ng/mL 34 29 23 Hepatic panel results Recent Labs Units 11/01/22 1413 09/13/22 1410 06/18/22 1521 PROTEIN - [facility] g/dL 7.2 7.2 7.0 BILIRUBIN, TOTAL - [facility] mg/dL 0.3 0.3 0.4 ALKALINE PHOSPHATASE - [facility] U/L 96 89 86 AST - [facility] U/L 15 22 22 ALT - [facility] U/L 14 16 22 Protein/cr ratio results No results for input(s): PROCRRATIO in the last 28302 hours. Medication Review "Bottles Out" medication review performed today and medication list in EMR updated Mobility Evaluation: MAHC10 Assessment: Assistive Devices Used in the Home: Walker (standard or rollator) Simi Martinez PA-C 4:18 PM *Communication sent to PCP (via autofax if non-[facility]), [facility] Health Care Team members,relevant Specialty Care Physicians* documented in this encounter Miscellaneous Notes * Assessment & Plan Note - Simi Martinez PA-C - 02/03/2023 12:38 PM EDT Associated Problem(s): Spinal stenosis of lumbar region without neurogenic claudication Plan as noted above * Assessment & Plan Note - Simi Martinez PA-C - 02/03/2023 12:38 PM EDT Associated Problem(s): Moderate episode of recurrent major depressive disorder (HCC) Mood appropriate and stable on duloxetine * Assessment & Plan Note - Simi Martinez PA-C - 02/03/2023 12:38 PM EDT Associated Problem(s): History of pulmonary embolus (PE) Continue Eliquis * Assessment & Plan Note - Simi Martinez PA-C - 02/03/2023 12:35 PM EDT Associated Problem(s): Type 2 diabetes mellitus with stage 3b chronic kidney disease, with long-term current use of insulin (HCC) Last hemoglobin A1c 6.9 Current Status: Actively [...] worse due to steroids. Intolerant to Wili/Arb/statin * Assessment & Plan Note - Simi Martinez PA-C - 02/03/2023 12:35 PM EDT Associated Problem(s): Postsurgical hypothyroidism TSH 1.1 in 11/18 -continue Synthroid * Assessment & Plan Note - Simi Martinez PA-C - 02/03/2023 12:34 PM EDT Associated Problem(s): Sacroiliitis, not elsewhere classified (HCC) Has been having more back pain as of recently. Taking tramadol with minimal relief. Finished a course of steroids. No longer taking gabapentin due to other medication interactions. -has an appointment with her pain doctor next week -will also discuss pain control with her PCP next week * Assessment & Plan Note - Simi Martinez PA-C - 02/03/2023 12:33 PM EDT Associated Problem(s): Gastroesophageal reflux disease with esophagitis Continue omeprazole * Assessment & Plan Note - Simi Martinez PA-C - 02/03/2023 12:33 PM EDT Associated Problem(s): ELISSA (obstructive sleep apnea) Continue CPAP * Assessment & Plan Note - Simi Martinez PA-C - 02/03/2023 12:33 PM EDT Associated Problem(s): Chronic hypoxemic respiratory failure (HCC) At baseline. -continue O2 3 L at all times. 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 3b chronic kidney disease (HCC) Current Status: "Stable" for patient / At or near baseline Degree of Condition Awareness: Demonstrates very good awareness of condition, disease course, and prognosis "RED FLAG" HF Symptoms: o NO IDENTIFIED SYMPTOMS Current Heart Failure Classifications: o With ordinary activity such as doing housework, yard work or shopping ([place] [facility]) Diagnostic Review: Recent Labs Units 12/08/22 [...] o Anticipated IV Lasix dose: 80 mg * Assessment & Plan Note - Simi Martinez PA-C - 02/03/2023 12:27 PM EDT Associated Problem(s): Atherosclerosis of eastern shosh[place] coronary arter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 No chest pain. Stable. -continue Eliquis -likely no Wili or beta-faviola due to hypotension. Statin intolerance * ACP (Advance Care Planning) - Simi Martinez PA-C - 02/03/2023 12:27 PM EDT Patient-centered Communication 02/03/2023 The patient/surrogate voluntarily agreed to participate in advance care planning discussion. They were advised that this is a separate service which may incur out of pocket cost in the form of copayment and/or deductibles. Location: Home Individual(s) present for conversation: Patient Decisions Contains data within 12/24/2022 to 12/24/2022 and each row's most recent data. Newer data is on the left. Synopsis SmartLink Most Recent Value Past ~10 years 12/24/2022 15:00 Decisions CPR decision: Patient chooses CPR 12/24/2022 Patient chooses CPR Intubation/Mechanical Ventilation decision: Patient chooses Intubation/mechanical ventilation 12/24/2022 Patient chooses Intubation/mechanical ventilation Non-invasive ventilation or BIPAP decision: Patient chooses non-invasive ventilation. Select interventions below 11/22/2022 Non-Invasive Ventilation Interventions: Oxygen only;CPAP;BIPAP;NIV 11/22/2022 Antibiotic therapy decision: Patient chooses Antibiotic therapy 12/24/2022 Patient chooses Antibiotic therapy Artificial nutrition decision: Patient chooses Artificial nutrition 12/24/2022 Patient chooses Artificial nutrition IV hydration decision: Patient chooses IV hydration 12/24/2022 Patient chooses IV hydration Blood transfusion decision: Patient chooses Blood transfusion 12/24/2022 Patient chooses Blood transfusion Lab draw decision: Patient chooses Lab draws 12/24/2022 Patient chooses Lab draws Dialysis decision: Declines Dialysis 12/24/2022 Declines Dialysis Additional Comments Contains data within 11/22/2022 to 11/22/2022 and each row's most recent data. Newer data is on the left. Synopsis SmartLink Most Recent Value Past ~10 years 11/22/2022 10:22 Additional Comments Additional Comments: would not want any life sustaining intervention if it was felt she would not have full recovery 11/22/2022 would not want any life sustaining intervention if it was felt she would not have full recovery Discerning What Matters Most to the Patient: Contains data within 07/01/2022 to 07/01/2022 and each row's most recent data. Newer data is on the left. Synopsis Qumas Most Recent Value Past ~10 years 07/01/2022 16:52 Discerning What Matters Most to the Patient In their own words, patient's UNDERSTANDING of their illness is: i have good days and bad days and learn to live with the pain as much as I can. I have to watch what i eat and only cheat every now and then. DM, fibromyalgia is never going away 01/12/2022 Their current SYMPTOMS include: Pain;Tiredness;Drowsiness;Depression;Lack of appetite 01/12/2022 They say their illness has CHANGED THEIR LIFE by: Less enjoyment (quality of life);Feel like a burden to family/loved ones 01/12/2022 The patient thinks COMPLICATIONS in the future may be: More hospitalizations 07/01/2022 More hospitalizations The patient defines LIVING WELL as: have energy to do house cleaning and laundry, maybe go on a shopping trip or go visit family 01/12/2022 The patient considers these as 'UNACCEPTABLE OUTCOMES': "Being a vegetable" (define below);Unable to feed themselves;Prolonged detention stay (define below);Prolonged mechanical ventilation (define below);Prolonged hospital stay (define below) 03/24/2021 "Being a vegetable", patient defines as: no possible way that i can come back 03/24/2021 Prolonged hospital stay, patient defines as: no hope of ever gettig out of hospital 03/24/2021 Prolonged detention stay, patient defines as: no hope of ever getting back home 03/24/2021 Prolonged mechanical ventilation, patient defines as: no hope of getting off ventilator 03/24/2021 The patient's cultural or spiritual BELIEFS that may affect health care decisions: none 03/24/2021 Source: Content from [facility] Aligning Care With What Matters Most: Contains data within 02/03/2023 to 02/03/2023 and each row's most recent data. Newer data is on the left. Synopsis [facility]umas Most Recent Value Past ~10 years 02/03/2023 12:41 Aligning Care With What Matters Most In their own words, the patient's understanding of their prognosis: I think my health is pretty good right now. 11/22/2022 Interventions/Choices: CPR;Intubation/mechanical ventilation;Antibiotic therapy;Non-invasive ventilation or BIPAP;Lab draws;Blood transfusion 02/03/2023 CPR;Intubation/mechanical ventilation;Antibiotic therapy;Non-invasive ventilation or BIPAP;Lab draws;Blood transfusion Rationale for Decisions Contains data within 03/24/2021 to 03/24/2021 and each row's most recent data. Newer data is on the left. eeden Most Recent Value Past ~10 years 03/24/2021 18:52 CPR Their goals for CPR treatment are: see if it works and if it does not work after 2-3 times let me go 03/24/2021 see if it works and if it does not work after 2-3 times let me go Contains data within 03/24/2021 to 03/24/2021 and each row's most recent data. Newer data is on the left. eeden Most Recent Value Past ~10 years 03/24/2021 18:52 Intubation/mechanical ventilation Their goals for Intubation/mechanical ventilation treatment are: getting off as soon as possible, Idon't want life long ventilation 03/24/2021 getting off as soon as possible, I don't want life long ventilation Unacceptable outcomes from Intubation/mechanical ventilation treatment are: being on it the rest ofmy life 03/24/2021 being on it the rest of my life Contains data within 12/24/2022 to 12/24/2022 and each row's most recent data. Newer data is on the left. eeden Most Recent Value Past ~10 years 12/24/2022 15:00 Non-invasive ventilation or BIPAP Their goals for Non-invasive ventilation or BIPAP treatment are: if it is short term 01/12/2022 Unacceptable outcomes from Non-invasive ventilation or BIPAP treatment are: watermelon inspector 12/24/2022 watermelon inspector Contains data within 01/12/2022 to 01/12/2022 and each row's most recent data. Newer data is on the left. eeden Most Recent Value Past ~10 years 01/12/2022 10:02 IV hydration Their goals for IV hydration treatment are: short term only 01/12/2022 short term only Source: Content from [facility] 5 minutes spent in direct [id number] discussion today, Simi Martinez PA-C documented in this encounter Plan of Treatment Upcoming Encounters Date Type Specialty Care Team Description 02/10/2023 Office Visit Pain Medicine Raj Ahn, [address] [place] [address] 02/11/2023 Office Visit Family Medicine Galdino Andujar, DO [address] [place] [address] 03/02/2023 Home Visit [facility] Brooke Jose RN [address] [place] [address] 03/07/2023 PulmDiagnostic Pulmonary Function [place], Pulm Function Tech [address] [place] [address] 04/29/2023 Home Visit [facility] Simi Martinez PA-C [address] [place] [address] 08/08/2023 Nurse Only [employer], Nurse Annual Wellness Visit [address] [place] [address] Scheduled Procedures Name Priority Associated Diagnoses Date/Ti me COLONOSCOPY FLEXIBLE PROXIMAL DIAGNOSTIC Recall Colon cancer screening Health Maintenance Due Date Last Done Comments Cologuard 2000 Fecal Occult Blood Test 2000 Sigmoidoscopy 2000 COVID-19 Vaccine (5 - Booster for Pfizer series) 06/08/2022 2022, 10/01/2021, 01/08/2021, Additional history exists CKD PHOS USE SMARTSET 34898 01/07/202312/25, 03/12/2021, 11/17/2020, Additional history exists Mammogram 02/11/2023 02/11/2022, 02/2021, 07/10/2019, Additional history exists HgA1C 05/01/2023 11/01/2022, 04/26, 01/07/2022, Additional history exists DIABETES-EYE EXAM 05/24/2023 05/24/2022, , 04/07/2020, Additional history exists GFR - Renal Function 06/10/2023 12/08/2022, 11/01/2022, 09/13/2022, Additional history exists Albumin/Creatinine Ratio 11/01/2023 023, 01/07/2022, 05/24/2019, Additional history exists CKD HGB USE SMARTSET 79188 11/01/202311/01, 11/01/2022, 06/29/2022, Additional history exists DIABETES-FOOT [...] as of this encounter Visit Diagnoses Diagnosis Advanced care planning/counseling discussion- Primary Other specified counseling Atherosclerosis of eastern [place] coronary artery of eastern [place] heart without angina pectoris Frank filter in place Other postprocedural status 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 3b chronic kidney disease (HCC) Recurrent deep vein thrombosis (DVT) of both lower extremities (HCC) Chronic hypoxemic respiratory failure (HCC) Chronic respiratory failure Gastroesophageal reflux disease with esophagitis without hemorrhage Sacroiliitis, not elsewhere classified (HCC) Sacroiliitis, not elsewhere classified 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 3b chronic kidney disease, with long-term current use of insulin (HCC) History of pulmonary embolus (PE) Personal history of pulmonary embolism Moderate episode of recurrent major depressive disorder (HCC) Spinal stenosis of lumbar region without neurogenic claudication Spinal stenosis, lumbar region, without neurogenic claudication documented in this encounter Advance Directives Documents on File Type Date Recorded Patient A P Manager Expl anation POLST 03/19/2020 4:25 PM [...] the patient have Health Care Power of Animal Control Supervisor? No Healthcare Agents on File Name Relationship Healthcare Agent Relationship Communication Galdino Camp Other - (no specific identity) Health Care Power of Animal Control Supervisor Princess Allen Other - (no specific identity) Health Care Power of Animal Control Supervisor Care Teams Motorcycle Tester Relationship Specialty Start Date End Date Galdino Andujar, [address] [place] [address] PCP - General Internal Medicine 01/07/22 documented as of this encounter
--- OUTSIDE RECORDS SUMMARY | 2023-06-01 04:15 | External Medical Summary | Summary of Care ---
Author Name Unknown Organization [facility] Address [address] [place] [address] Phone [phone] Care Team Providers Care Spike Machine Operator Name Role Phone Galdino Andujar DO Primary Care Provider [phone] Reason for Visit * Reason Onset Date Comments Advice 01/14/2023 Back spasms Encounter Details Date Type Department Care Team Description 01/14/2023 Telephone Family Practice [facility], [place] [address] [place] [address] Galdino Andujar DO [address] [place] [address] Advice (Back spasms) Allergies Active Allergy Reactions Severity Noted Date [...] as of this encounter (statuses as of 01/14/2023) Medications Medication Sig Dispensed Refills Start Date End Date Status ONETOUCH DELICA LANCETS 33G MISC Check blood sugars 3-4 times daily 180 Each 5 08/01/2018 Active oxygen GASIndications:ELISSA (obstructive sleep apnea) Use 3 L/min(Oxygen) as directed continuous. 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/31/2021 Atherosclerosis of [place] coronary arter 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 12/31/2021 [...] Plan: Continue tramadol Abnormality of gait 02/02/[address] [place] [address] 08/19/2014 History of pulmonary [...] as of this encounter (statuses as of 01/14/2023) Resolved Problems Problem Noted Date Resolved Date [...] as of this encounter (statuses as of 01/14/2023) Immunizations Name Administration Dates Next Due COVID-19 mRNA, LNP-s, No Pre serve, 2-Dose Series ([employer]) 01/08/2021,12/18/2020 COVID-19, LNP-s, No Preserve , Navarro-sucrose, Ages 12+ (Pfizer) 2022,10/01/2021 Pneumococcal Conjugate Vacci ne, 20-valent ([id number]) 03/12/2022 Pneumococcal Polysaccharide PPV23 (Pneumovax) 08/22/2009,06/15/2006 Seasonal [...] Telephone Encounter - Shira Gross LPN - 01/14/2023 5:19 PM EDT Patient is aware and will comply. Thank you * Telephone Encounter - Galdino Andujar DO - 01/14/2023 5:18 PM EDT Start Prednisone 20 mg daily for 5 days * Telephone Encounter - Shira Gross LPN - 01/14/2023 3:14 PM EDT Currently taking baclofen and tramadol. States muscles in back and legs are painful. Legs are painful to touch. Unsure of what set off spasms. Taking medication for about two days. Prednisone? Very tearful due to spasms. Thank you * Telephone Encounter - ELISSA Snider - 01/14/2023 2:42 PM EDT Back spasms and doesn't not know what to do Has taken meds Is having issues walking, and sitting Want to know what she can do Please call and advise documented in this encounter Plan of Treatment Upcoming Encounters Date Type Specialty Care Team Description 01/19/2023 PulmDiagnostic Pulmonary Function [place], [address] [place] [address] 01/25/2023 Home Visit [facility] Brooke Jose RN [address] [facility] [place] [address] 02/02/2023 Home Visit [facility] Simi Martinez PA-C [address] [facility] [place] [address] 02/11/2023 Office Visit Family Medicine Galdino Andujar, DO [address] [place] [address] 08/08/2023 Nurse Only [employer], Nurse Annual Wellness Visit [address] [place] [address] Scheduled Procedures Name Priority Associated Diagnoses Date/Ti me COLONOSCOPY FLEXIBLE PROXIMAL DIAGNOSTIC Recall Colon cancer screening Health Maintenance Due Date Last Done Comments Cologuard: Ages 45-75 2000 FOBT: Ages 45-75 2000 Sigmoidoscopy: Ages 45-75 2000 COVID-19 Vaccine (5 - Booster for Pfizer series) 06/08/2022 2022, 10/01/2021, 01/08/2021, Additional history exists CKD PHOS USE SMARTSET 29116 01/07/202312/252, 03/12/2021, 11/17/2020, Additional history exists Mammogram 02/11/2023 02/11/2022, 01/02/2021, 07/10/2019, Additional history exists HgA1C 05/01/2023 11/01/2022, 04/26, 01/07/2022, Additional history exists DIABETES-EYE EXAM 05/24/2023 05/24/2022, , 04/07/2020, Additional history exists GFR - Renal Function 06/10/2023 12/08/2022, 11/01/2022, 09/13/2022, Additional history exists Albumin/Creatinine Ratio 11/01/2023 023, 01/07/2022, 05/24/2019, Additional history exists CKD HGB USE SMARTSET 01341 11/01/202311/01, 11/01/2022, 06/29/2022, Additional history exists DIABETES-FOOT [...] Documents on File Type Date Recorded Patient Onion Topper Expl anation POLST 03/19/2020 4:25 PM POLST [...] the patient have Health Care Power of Hide Puller? No Healthcare Agents on File Name Relationship Healthcare Agent Relationship Communication Galdino Camp Other - (no specific identity) Health Care Power of Hide Puller Princess Allen Other - (no specific identity) Health Care Power of Hide Puller Care Teams Spike Machine Operator Relationship Specialty Start Date End Date Galdino Andujar, DO [address] [place] [address] PCP - General Internal Medicine 01/07/22 documented as of this encounter
--- OUTSIDE RECORDS SUMMARY | 2023-06-01 04:16 | External Medical Summary | Summary of Care ---
Author Name Unknown Organization [facility] Address [address] [place] [address] Phone [phone] Care Team Providers Care Grain Mixer Name Role Phone Galdino Andujar DO Primary Care Provider [phone] Reason for Visit * Reason Onset Date Comments Information 01/11/2023 Encounter Details Date Type Department Care Team Description 01/11/2023 Telephone Family Practice [address] [facility], [place] [address] [place] [address] Galdino Andujar DO [address] [place] [address] Information Allergies Active Allergy Reactions [...] as of this encounter (statuses as of 01/11/2023) Medications Medication Sig Dispensed Refills Start Date End Date Status ONETOUCH DELICA LANCETS 33G MISC Check blood sugars 3-4 times daily 180 Each 5 08/01/2018 Active oxygen GASIndications:ELISSA (obstructive sleep apnea) Use 3 L/min(Oxygen) as directed continuous. 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 diastolic congestive heart failure (HCC) If [...] daily, E11.9 400 Strip 3 11/04/2021 Active Trulicity 4.5 MG/0.5ML Subcutaneous Solution Pen-injector (Dulaglutide) Inject 1 pen under the skin weekly 6 mL 5 11/03/2021 Active Tresiba FlexTouch 100 UNIT/ML Subcutaneous Solution Pen-injector (Insulin Degludec)Indications :Type 2 diabetes mellitus with hemoglobin A1c goal of 7.0%-8.0% ([facility]) INJECT 60 UNITS UNDER THE SKIN EVERY MORNING 60 mL 3 07/23/2022 Active Additional Information Patient taking differently: INJECT 56 UNITS UNDER THE SKIN IN THE EVENING, Reported on 11/01/2022 Apixaban 5 MG Oral Tablet (Eliquis) Take 1 Tablet (5 mg) by mouth in the morning and 1 Tablet (5 mg) before bedtime. 60 Tablet 5 08/25/2022 Active Cholecalciferol 25 MCG (1000 UT) Oral [...] capsule daily. 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 60 Capsule 5 08/25/2022 Active metFORMIN HCl ER [...] 90 Tablet 6 08/25/2022 Active Levothyroxine Sodium 50 MCG Oral Tablet (Levoxyl)Indications :Hyperparathyroidism , secondary renal (HCC) TAKE 1 TABLET BY MOUTH DAILY AT LEAST 30 MINUTES PRIOR TO FIRST MEAL OF THE DAY OR OTHER MEDICATIONS 100 Tablet 1 08/31/2022 Active Levothyroxine Sodium 200 MCG Oral Tablet [...] MUSCLE SPASMS 60 Tablet 1 11/17/2022 Active traMADol HCl 50 MG Oral Tablet (Ultram)Indications: Lumbar radiculopathy,Primar y osteoarthritis of left knee Take 1 Tablet by mouth every 8 hours as needed for Pain, Severe. 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/31/2021 Atherosclerosis of [place] coronary arter 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 12/31/2021 [...] Plan: Continue tramadol Abnormality of gait 02/02/[address] [place] [address] 08/19/2014 History of pulmonary [...] as of this encounter (statuses as of 01/11/2023) Resolved Problems Problem Noted Date Resolved Date [...] as of this encounter (statuses as of 01/11/2023) Immunizations Name Administration Dates Next Due COVID-19 mRNA, LNP-s, No Pre serve, 2-Dose Series (Veeqo) 01/08/2021,12/18/2020 COVID-19, LNP-s, No Preserve , Navarro-sucrose, Ages 12+ (Pfizer) 2022,10/01/2021 Pneumococcal Conjugate Vacci ne, 20-valent ([id number]) 03/12/2022 Pneumococcal Polysaccharide PPV23 (Pneumovax) 08/22/2009,06/15/2006 Seasonal [...] Brooke Jose RN [address] [place] [address] 01/19/2023 PulmDiagnostic Pulmonary Function [facility], [address] [place] [address] 02/02/2023 Home Visit [facility] Simi Martinez PA-C [address] [place] [address] 02/11/2023 Office Visit Family Medicine Galdino Andujar, [address] [facility], [place] [address] 08/08/2023 Nurse Only [employer]illary [employer], Nurse Annual Well[facility] [address] [facility] [address] Scheduled Procedures Name Priority Associated Diagnoses Date/Ti me COLONOSCOPY FLEXIBLE PROXIMAL DIAGNOSTIC Recall Colon cancer screening Health Maintenance Due Date Last Done Comments Cologuard: Ages 45-75 2000 FOBT: Ages 45-75 2000 Sigmoidoscopy: Ages 45-75 2000 COVID-19 Vaccine (5 - Booster for Pfizer series) 06/08/2022 2022, 10/01/2021, 01/08/2021, Additional history exists CKD PHOS USE SMARTSET 38794 01/07/202312/25, 03/12/2021, 11/17/2020, Additional history exists Mammogram 02/11/2023 02/11/2022, 02/2021, 07/10/2019, Additional history exists HgA1C 05/01/2023 11/01/2022, 04/26, 01/07/2022, Additional history exists DIABETES-EYE EXAM 05/24/2023 05/24/2022, , 04/07/2020, Additional history exists GFR - Renal Function 06/10/2023 12/08/2022, 11/01/2022, 09/13/2022, Additional history exists Albumin/Creatinine Ratio 11/01/20232 023, 01/07/2022, 05/24/2019, Additional history exists CKD HGB USE SMARTSET 73474 11/01/202311/01, 11/01/2022, 06/29/2022, Additional history exists DIABETES-FOOT [...] Documents on File Type Date Recorded Patient Scrap Drop Crane Operator Expl anation POLST 03/19/2020 4:25 PM [...] patient have Health Care Power of Manager Demand? No Healthcare Agents on File Name Relationship Healthcare Agent Relationship Communication Galdino Camp Other - (no specific identity) Health Care Power of Manager Demand Princess Allen Other - (no specific identity) Health Care Power of Manager Demand Care Teams Grain Mixer Relationship Specialty Start Date End Date Galdino Andujar, [address] [place] [address] PCP - General Internal Medicine 01/07/22 documented as of this encounter
--- OUTSIDE RECORDS SUMMARY | 2023-06-01 04:16 | External Medical Summary | Summary of Care ---
Author Name Unknown Organization [facility] Address [address] [place] [address] Phone [phone] Care Team Providers Care Goodwill 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 Name Role Phone Galdnio Andujar DO Primary Care Provider [phone] Encounter Details Date Type Department Care Team Description 12/24/2022 Home Visit [facility], [facility] [address] [place] [id number] Simi Martinez PA-C [address] [place] [address] Advanced care planning/counseling discussion*; Atherosclerosis of duckwater coronary artery of duckwater heart without angina pectoris; Carotid artery stenosis, asymptomatic, right; Essential hypertension with goal blood pressure less than 140/90; Frank filter in place; 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 3b chronic kidney disease ([facility]); Recurrent deep vein thrombosis (DVT) of both lower extremities ([facility]); Chronic hypoxemic respiratory failure ([facility]); ELISSA (obstructive sleep apnea); Type 2 diabetes mellitus with hemoglobin A1c goal of less than 8.0% ([facility]); Fibromyalgia; Restless legs syndrome; Chronic kidney disease, stage 3b ([facility]); History of pulmonary embolus (PE); Moderate episode of recurrent major depressive disorder ([facility]) Allergies Active Allergy Reactions Severity Noted Date [...] as of this encounter (statuses as of 12/24/2022) Medications Medication Sig Dispensed Refills Start Date End Date Status ONETOUCH DELICA LANCETS 33G MISC Check blood sugars 3-4 times daily 180 Each 5 08/01/2018 Active oxygen GASIndications:ELISSA (obstructive sleep apnea) Use 3 L/min(Oxygen) as directed continuous. 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/31/2021 Atherosclerosis of duckwater coronary arter 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 12/31/2021 [...] as of this encounter (statuses as of 12/24/2022) Resolved Problems Problem Noted Date Resolved Date [...] as of this encounter (statuses as of 12/24/2022) Immunizations Name Administration Dates Next Due COVID-19 mRNA, LNP-s, No Pre serve, 2-Dose Series ([employer] ( [employer] )) 01/08/2021,12/18/2020 COVID-19, LNP-s, No Preserve , Navarro-sucrose, Ages 12+ (Pfizer) 2022,10/01/2021 Pneumococcal Conjugate Vacci ne, 20-valent (Pnyhinl28) 03/12/2022 Pneumococcal Polysaccharide PPV23 (Pneumovax) 08/22/2009,06/15/2006 Seasonal [...] Sign Reading Time Taken Comments Blood Pressure 128/54 12/24/2022 9:23 AM EDT Pulse 92 12/24/2022 9:23 AM EDT Temperature 36.4 C (97.5 F) 12/24/2022 9:23 AM ED T Respiratory Rate 18 12/24/2022 9:23 AM EDT Oxygen Saturation 98% 12/24/2022 9:23 AM EDT Inhaled Oxygen Concentration - - Weight 142.4 kg (314 lb) 12/24/2022 9:23 AM EDT Height - - Body Mass Index 52.25 12/08/2022 2:34 PM EDT documented in this encounter Progress Notes * Simi Martinez PA-C - 12/24/2022 9:11 AM EDT Images from the original note were not included. [facility] Provider Visit Date: 12/24/2022 Time: 9:11 AM [facility] Sub-Program: Primary Care at Home [facility] Episode Start Date: Noted: 06/14/2022 Assessment and Plan Advanced care planning/counseling discussion - Advance Care Plan Discussed/Alternate Decision Maker Doc'd Atherosclerosis of duckwater coronary artery of duckwater heart without angina pectoris Assessment & Plan: No chest pain. Stable. -continue Eliquis -? Unsure why no beta faviola, boogie, or ASA. Will investigate next visit Carotid artery stenosis, asymptomatic, right Assessment & Plan: MRI neck this coming week F/u scheduled with Dr. Tang Essential hypertension with goal blood pressure less than 140/90 Assessment & Plan: BP stable -continue diuretics Frank filter in place Hypertensive heart and kidney [...] plan still being defined and education ongoing Recurrent deep vein thrombosis (DVT) of both lower extremities (HCC) Assessment & Plan: Stable -continue eliquis Chronic hypoxemic respiratory failure (HCC) Assessment & Plan: O2 stable -continue oxygen 3 L at all times. ELISSA (obstructive sleep apnea) Assessment & Plan: Compliant with CPAP Type 2 diabetes mellitus with hemoglobin A1c goal of less than 8.0% ([facility]) Assessment & Plan: Current Status: "Stable" for patient / At or near baseline Degree of Condition Awareness: Demonstrates very good awareness of condition, disease course, and prognosis "RED FLAG" Diabetic symptoms: o none Goal HgbA1c o <7 Diabetic Complications o Vascular (examples: PVD, PAD, CAD, CVA) Medication Regimen o Metformin o GLP-1 Agonist (ex: Victoza, Trulicity, Ozempic) o Other: Tresiba DM Secondary Prevention Fibromyalgia Assessment & Plan: Continue tramadol Restless legs syndrome Assessment & Plan: Continue Requip Chronic kidney disease, stage 3b ([facility]) History of pulmonary embolus (PE) Assessment & Plan: Continue Eliquis Moderate episode of recurrent major depressive disorder ([facility]) Assessment & Plan: Stable on duloxetine Additional Medical Decision Making: Stephanie is doing well at home. Stable. Next provider visit 4-6 weeks Scheduled appointments in the next 60 days: Future Appointments-next 60 days Date/Time Provider Specialty Dept Phone 01/18/2023 12:30 PM Brooke Jose RN [facility] [phone] 01/19/2023 2:00 PM [facility] [phone] 02/11/2023 11:20 AM (Arrive by 11:05 AM) Galdino Andujar DO Family Medicine [phone] 08/08/2023 2:00 PM Nurse Annual Wellness Visit [address] [place] [address] A total of 50 minutes was spent face to face (via video-based telemedicine if designated as a telemedicine visit) Subjective Subjective Is this a Telemedicine Visit? No, this is an Home Visit. Reason For [facility] Visit: Follow-Up Current Concerns: Stephanie Camp is a 67 year old female seen today for a [facility] provider visit. Today's concerns are: Nervous about upcoming MRI for evaluation of carotid artery stenosis. Due to patient's history of CHF and chronic kidney disease, CT angiogram was changed to an MRI. HF: Weight usually 311-315. Today 314. Breathing "ok." Using 3L O2 at all times. Sinus congestion, particularly in the morning. Takes decongestants as needed, which seems to help. No chest pain, heart palpitations. Intermittent dizziness-spinning. Thought to be due to vertigo. No falls Using CPAP. DM BS 149 this am. Compliant with medications. Additional Review of Systems All other systems reviewed and are negative. Objective Objective Vitals: 12/24/22922 Temp: 36.4 C (97.5 F) Pulse: 92 Resp: 18 SpO2: 98% BP: 128/54 BP Readings from Last 3 Encounters: 12/24/22 128/54 12/08/22 116/70 11/29/22 108/64 Wt Readings from Last 3 Encounters: 12/24/22 (!) 142.4 kg (314 lb) 12/08/22 (!) 143.5 kg (316 lb 4.8 oz) 11/29/22 (!) 143.6 kg (316 lb 9.6 oz) Last Weights: Wt Readings from Last 3 Encounters: 12/24/22 (!) 142.4 kg (314 lb) 12/08/22 (!) 143.5 kg (316 lb 4.8 oz) 11/29/22 (!) 143.6 kg (316 lb 9.6 oz) Last BPs: BP Readings from Last 4 Encounters: 12/24/22 128/54 12/08/22 116/70 11/29/22 108/64 11/22/22 124/70 Physical Exam Constitutional: Appearance: She is obese. HENT: Head: Normocephalic. Mouth/Throat: Mouth: Mucous membranes are moist. Eyes: Extraocular Movements: Extraocular movements intact. Cardiovascular: Rate and Rhythm: Normal rate. Heart sounds: No murmur heard. Pulmonary: Comments: [...] Recent Labs Units 11/01/22 1413 01/07/22 1156 12/25/20 1010 TSH - [facility] uIU/mL 1.10 0.95 3.88 Vitamin D results Recent Labs Units 11/01/22 1413 07/02/22 1511 03/12/21 1500 25-HYDROXY VITAMIN D - [facility] ng/mL 34 29 23 Medication Review "Bottles Out" medication review performed today and medication list in EMR updated Mobility Evaluation: MAHC10 Assessment: Assistive Devices Used in the Home: Walker (standard or rollator) Simi Martinez PA-C 9:11 AM *Communication sent to PCP (via autofax if non-[facility]), [facility] Health Care Team members,relevant Specialty Care Physicians* documented in this encounter Miscellaneous Notes * Assessment & Plan Note - Simi Martinez PA-C - 12/24/2022 2:59 PM EDT Associated Problem(s): Moderate episode of recurrent major depressive disorder (HCC) Stable on duloxetine * Assessment & Plan Note - Simi Martinez PA-C - 12/24/2022 2:59 PM EDT Associated Problem(s): History of pulmonary embolus (PE) Continue Eliquis * Assessment & Plan Note - Simi Martinez PA-C - 12/24/2022 2:58 PM EDT Associated Problem(s): Restless legs syndrome Continue Requip * Assessment & Plan Note - Simi Martinez PA-C - 12/24/2022 2:58 PM EDT Associated Problem(s): Fibromyalgia Continue tramadol * Assessment & Plan Note - Simi Martinez PA-C - 12/24/2022 2:56 PM EDT Associated Problem(s): Type 2 diabetes mellitus with hemoglobin A1c goal of less than 8.0% (HCC) Current Status: "Stable" for patient / At or near baseline Degree of Condition Awareness: Demonstrates very good awareness of condition, disease course, and prognosis "RED FLAG" Diabetic symptoms: o none Goal HgbA1c o <7 Diabetic Complications o Vascular (examples: PVD, PAD, CAD, CVA) Medication Regimen o Metformin o GLP-1 Agonist (ex: Victoza, Trulicity, Ozempic) o Other: Tresiba DM Secondary Prevention * Assessment & Plan Note - Simi Martinez PA-C - 12/24/2022 2:56 PM EDT Associated Problem(s): ELISSA (obstructive sleep apnea) Compliant with CPAP * Assessment & Plan Note - Simi Martinez PA-C - 12/24/2022 2:55 PM EDT Associated Problem(s): Chronic hypoxemic respiratory failure (HCC) O2 stable -continue oxygen 3 L at all times. * Assessment & Plan Note - Simi Martinez PA-C - 12/24/2022 2:55 PM EDT Associated Problem(s): Recurrent deep vein thrombosis (DVT) of both lower extremities (HCC) Stable -continue eliquis * Assessment & Plan Note - Simi Martinez PA-C - 12/24/2022 2:52 PM EDT Associated Problem(s): Hypertensive heart and [...] plan still being defined and education ongoing * Assessment & Plan Note - Simi aMrtinez PA-C - 12/24/2022 2:47 PM EDT Associated Problem(s): Essential hypertension with goal blood pressure less than 140/90 BP stable -continue diuretics * Assessment & Plan Note - Simi Martinez PA-C - 12/24/2022 2:43 PM EDT Associated Problem(s): Carotid artery stenosis, asymptomatic, right MRI neck this coming week F/u scheduled with Dr. Tang * Assessment & Plan Note - Simi Martinez PA-C - 12/24/2022 2:40 PM EDT Associated Problem(s): Atherosclerosis of duckwater coronary arter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 No chest pain. Stable. -continue Eliquis -? Unsure why no beta faviola, boogie, or ASA. Will investigate next visit * ACP (Advance Care Planning) - Simi Martinez PA-C - 12/24/2022 2:40 PM EDT Patient-centered Communication 12/24/2022 The patient/surrogate voluntarily agreed to participate in advance care planning discussion. They were advised that this is a separate service which may incur out of pocket cost in the form of copayment and/or deductibles. Location: Home Individual(s) present for conversation: Patient Decisions Contains data within 11/22/2022 to 11/22/2022 and each row's most recent data. Newer data is on the left. Synopsis [employer] Most Recent Value Past ~10 years 11/22/2022 10:22 Decisions CPR decision: Patient chooses CPR 11/22/2022 Patient chooses CPR Intubation/Mechanical Ventilation decision: Patient chooses Intubation/mechanical ventilation 11/22/2022 Patient chooses Intubation/mechanical ventilation Non-invasive ventilation or BIPAP decision: Patient chooses non-invasive ventilation. Select interventions below 11/22/2022 Patient chooses non-invasive ventilation. Select interventions below Non-Invasive Ventilation Interventions: Oxygen only;CPAP;BIPAP;NIV 11/22/2022 Oxygen only;CPAP;BIPAP;NIV Antibiotic therapy decision: Patient chooses Antibiotic therapy 11/22/2022 Patient chooses Antibiotic therapy Artificial nutrition decision: Patient chooses Artificial nutrition 11/22/2022 Patient chooses Artificial nutrition IV hydration decision: Patient chooses IV hydration 11/22/2022 Patient chooses IV hydration Blood transfusion decision: Patient chooses Blood transfusion 11/22/2022 Patient chooses Blood transfusion Lab draw decision: Patient chooses Lab draws 11/22/2022 Patient chooses Lab draws Dialysis decision: Declines Dialysis 11/22/2022 Declines Dialysis Additional Comments Contains data within [...] Newer data is on the left. Synopsis [employer] Most Recent Value Past ~10 years 07/01/2022 [...] a vegetable" (define below);Unable to feed themselves;Prolonged fci stay (define below);Prolonged mechanical ventilation (define below);Prolonged hospital stay (define below) 03/24/2021 "Being a vegetable", patient defines as: no possible way that i can come back 03/24/2021 Prolonged hospital stay, patient defines as: no hope of ever gettig out of hospital 03/24/2021 Prolonged fci stay, patient defines as: no hope of ever getting back home 03/24/2021 Prolonged mechanical ventilation, patient defines as: no hope of getting off ventilator 03/24/2021 The patient's cultural or spiritual BELIEFS that may affect health care decisions: none 03/24/2021 Source: Content from [employer] Program Aligning Care With What Matters Most: Contains data within 11/22/2022 to 11/22/2022 and each row's most recent data. Newer data is on the left. Synopsis [employer] Most Recent Value Past ~10 years 11/22/2022 10:22 Aligning Care With What Matters Most In their own words, the patient's understanding of their prognosis: I think my health is pretty good right now. 11/22/2022 I think my health is pretty good right now. Interventions/Choices: CPR;Intubation/mechanical ventilation;Non-invasive ventilation or BIPAP;Antibiotic therapy;Artificial nutrition;IV hydration;Blood transfusion;Lab draws;Dialysis 11/22/2022 CPR;Intubation/mechanical ventilation;Non-invasive ventilation or BIPAP;Antibiotic therapy;Artificial nutrition;IV hydration;Blood transfusion;Lab draws;Dialysis Rationale for Decisions Contains data within 03/24/2021 to 03/24/2021 and each row's most recent data. Newer data is on the left. [employer] Most Recent Value Past ~10 years 03/24/2021 [...] Newer data is on the left. Synopsis [employer]ift Most Recent Value Past ~10 years 03/24/2021 [...] rest of my life Contains data within 01/12/2022 to 01/12/2022 and each row's most recent data. Newer data is on the left. [employer] Most Recent Value Past ~10 years 01/12/2022 10:02 Non-invasive ventilation or BIPAP Their goals for Non-invasive ventilation or BIPAP treatment are: if it is short term 01/12/2022 if it is short term Contains data within 01/12/2022 to 01/12/2022 and each row's most recent data. Newer data is on the left. [employer] Most Recent Value Past ~10 years 01/12/2022 10:02 IV hydration Their goals for IV hydration treatment are: short term only 01/12/2022 short term only Source: Content from [facility] [employer] Program 10 minutes spent in direct [id number] discussion today, Simi Martinez PA-C documented in this encounter Plan of Treatment Upcoming Encounters Date Type Specialty Care Team Description 01/18/2023 Home Visit [facility] Brooke Jose, RN [address] [facility] [place] [address] 01/19/2023 Pul[facility]Diagnostic Pulmonary Function [place], [facility] [address] [facility] [place] [address] 02/02/2023 [facility] Visit [facility]-C [facility] [place] [address] 02/11/2023 Office Visit Family Medicine Galdino Anudjar, DO [address] [facility] [place] [address] 08/08/2023 Nurse Only [employer], Nurse Annual Wellness Visit [address] [facility] [place] [address] Scheduled Procedures Name Priority Associated Diagnoses Date/Ti me COLONOSCOPY FLEXIBLE PROXIMAL DIAGNOSTIC Recall Colon cancer screening Health Maintenance Due Date Last Done Comments Cologuard: Ages 45-75 2000 FOBT: Ages 45-75 2000 Sigmoidoscopy: Ages 45-75 2000 COVID-19 Vaccine (5 - Booster for Pfizer series) 06/08/2022 2022, 10/01/2021, 01/08/2021, Additional history exists CKD PHOS USE SMARTSET 62977 01/07/202312/25, 03/12/2021, 11/17/2020, Additional history exists Mammogram 02/11/2023 02/11/2022, 02/2021, 07/10/2019, Additional history exists HgA1C 05/01/2023 11/01/2022, 04/26, 01/07/2022, Additional history exists DIABETES-EYE EXAM 05/24/2023 05/24/2022, , 04/07/2020, Additional history exists GFR - Renal Function 06/10/2023 12/08/2022, 11/01/2022, 09/13/2022, Additional history exists Albumin/Creatinine Ratio 11/01/2023 023, 01/07/2022, 05/24/2019, Additional history exists CKD HGB USE SMARTSET 93671 11/01/202311/01, 11/01/2022, 06/29/2022, Additional history exists DIABETES-FOOT [...] discussion- Primary Other specified counseling Atherosclerosis of duckwater coronary artery of duckwater heart without angina pectoris Carotid artery stenosis, asymptomatic, right Essential hypertension with goal blood pressure less than 140/[address] Other postprocedural status 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 3b chronic kidney disease (HCC) Recurrent deep vein thrombosis (DVT) of both lower extremities (HCC) Chronic hypoxemic respiratory failure (HCC) Chronic respiratory failure ELISSA (obstructive sleep apnea) Obstructive sleep apnea (adult) (pediatric) Type 2 diabetes mellitus with hemoglobin A1c goal of less than 8.0% (HCC) Fibromyalgia Mylagia and myositis, unspecified Restless legs syndrome Restless legs syndrome (RLS) Chronic kidney disease, stage 3b (HCC) History of pulmonary embolus (PE) Personal history of pulmonary embolism Moderate episode of recurrent major depressive disorder (HCC) documented in this encounter Advance Directives Documents on File Type Date Recorded Patient Traffic Safety Administrator Expl anation POLST 03/19/2020 4:25 PM POLST [...] the patient have Health Care Power of Donkey Ride Operator? No Healthcare Agents on File Name Relationship Healthcare Agent Relationship Communication Galdino Camp Other - (no specific identity) Health Care Power of Donkey Ride Operator Princess Allen Other - (no specific identity) Health Care Power of Donkey Ride Operator Care Teams Goodwill 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 Relationship Specialty Start Date End Date Galdino Andujar, [address] [place] [id number] PCP - General Internal Medicine 01/07/22 documented as of this encounter
--- OUTSIDE RECORDS SUMMARY | 2023-06-01 04:16 | External Medical Summary | Summary of Care ---
Author Name Unknown Organization [facility] Address [address] [place] [address] Phone [phone] Care Team Providers Care Advertising Designer Name Role Phone Lexii Andujar DO Primary Care Provider [phone] Reason for Visit * Reason Comments eRx-Medication Refill Encounter Details Date Type Department Care Team Description 12/10/2022 Refill [facility] [address] [facility] [address] Lexii Andujar DO [address] [place] [address] Fibromyalgia; Restless legs syndrome; Anxiety state Allergies Active [...] as of this encounter (statuses as of 12/13/2022) Medications Medication Sig Dispensed Refills Start Date [...] daily, E11.9 400 Strip 3 2 Active Trulicity 4.5 MG/0.5ML Subcutaneous Solution Pen-injector (Dulaglutide) Inject 1 pen under the skin weekly 6 mL 5 2 Active Tresiba FlexTouch 100 UNIT/ML Subcutaneous Solution Pen-injector (Insulin Degludec)Indication s:Type 2 diabetes mellitus with hemoglobin A1c goal of 7.0%-8.0% ([facility]) INJECT 60 UNITS UNDER THE SKIN EVERY MORNING 60 mL 3 2 Active Additional Information Patient taking differently: INJECT 56 UNITS UNDER THE SKIN IN THE EVENING, Reported on 11/01/2022 Apixaban 5 MG Oral Tablet (Eliquis) Take 1 Tablet (5 mg) by mouth in the morning and 1 Tablet (5 mg) before bedtime. 60 Tablet 5 2 Active Cholecalciferol 25 MCG (1000 UT) [...] capsule daily. 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 60 Capsule 5 2 Active metFORMIN HCl ER [...] 90 Tablet 6 2 Active Levothyroxine Sodium 50 MCG Oral Tablet (Levoxyl)Indication s:Hyperparathyroidi sm, secondary renal (HCC) TAKE 1 TABLET BY MOUTH DAILY AT LEAST 30 MINUTES PRIOR TO FIRST MEAL OF THE DAY OR OTHER MEDICATIONS 100 Tablet 1 2 Active Levothyroxine Sodium 200 MCG Oral [...] MUSCLE SPASMS 60 Tablet 1 3 Active traMADol HCl 50 MG Oral Tablet (Ultram)Indications :Lumbar radiculopathy,Prima ry osteoarthritis of left knee Take 1 Tablet by mouth every 8 hours as needed for Pain, Severe. 90 Tablet 0 3 Active clonazePAM 0.5 MG Oral Tablet (KlonoPIN)Indicatio ns:Restless legs syndrome,Anxiety state TAKE 1 TABLET BY MOUTH IN THE MORNING AND AT BEDTIME 60 Tablet 0 3 Active clonazePAM 0.5 MG Oral Tablet (KlonoPIN)Indicatio ns:Restless legs syndrome,Anxiety state TAKE 1 TABLET BY MOUTH IN THE MORNING AND AT BEDTIME 60 Tablet 0 3 12/14/19 23 Discontinued documented as of this encounter (statuses as of 12/13/2022) Active Problems Problem Noted Date Type 2 diabetes mellitus wit h stage 3b chronic kidney disease, with long-term current use of insulin 09/29/2022 Anxiety state 09/29/2022 Sacroiliitis, not elsewhere classified 0 09/29/2022 ILD (interstitial lung disease) 08/11/20 Last Assessment & Plan: Followed by freddy Stable today Moderate episode of recurrent major depr essive disorder 08/11/2022 Last Assessment & Plan: Stable today Continue duloxetine Primary osteoarthritis of both knees Last [...] A1c goal of less than 8.0% 01/07/2022 Recurrent deep vein thrombosis (DVT) of both lower extremities 01/07/2022 Last Assessment & Plan: Filter in place. On eliquis Chronic hypoxemic respiratory failure Last Assessment & Plan: Wearing O2 2LPM at night and 3L during day with exertion, stable. Heparin 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/31/2021 Atherosclerosis of [place] coronary arter 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 12/31/2021 Carotid artery stenosis, asymptomatic, r ight 12/31/2021 Spinal stenosis of lumbar region without neurogenic [...] "My belly feels hard", "I look ") Current Heart Failure Classifications: o With less than ordinary activity ([employer] CLASS III) Diagnostic Review: Recent Labs Units 07/02/22 1511 06/29/22 0813 11/27/21 0000 03/20/21 1537 BNP (NT-PRO-BNP) - [facility] pg/mL -- -- -- 154 ESTIMATED GLOMERULAR FILTRATION RATE - [facility] mL/min 38* -- < > 33.8* EGFR-OUTSIDE LAB -- -- < > -- HGB - [facility] g/dL -- 13.9 < > 13.2 HEMOGLOBIN-OUTSIDE LAB -- -- < > -- < > = values in this interval not displayed. Medication Regimen: o Beta Faviola Therapy: No beta-faviola o BOOGIE Inhibitor/ARB Therapy: No BOOGIE/ARB/ARNI o Diuretic therapy: Lasix Self - Management Plan o Add metolazone (Zaroxolyn) 2.5-5mg for 1 days. If using a potassium supplement, double the dose of the supplement will be given on the day of and on the day after the metolazone o Avoid excessive fluid intake and avoid salty, processed food o Weigh daily Exacerbation Plan o Has not required home advanced interventions for heart failure o Euvolemic today Lumbar radiculopathy 09/27/2018 Chronic diastolic congestive heart failu re 06/12/2018 Controlled substance agreement signed Morbid obesity with BMI of 50.0-59.9, ad ult 06/27/2017 Overview: Per Obesity protocol #1 - Per Obesity Taxonomy ICD-10 update of inactive term Gastroesophageal reflux disease with eso phagitis 03/04/2017 Restless legs syndrome 03/25/2016 Last Assessment & Plan: Sx controlled with Requip Fibromyalgia 02/02/2016 Last Assessment & Plan: Uses percocet BID prn. Abnormality of gait 02/02/[address] [place] [address] 08/19/2014 History of pulmonary embolus (PE) 2013 Statin intolerance 07/16/2014 Essential hypertension with goal blood p ressure less than 140/90 02/22/2014 Venous insufficiency 02/07/2013 ELISSA (obstructive sleep apnea) 09/16/2011 Overview: CPAP 11 cwp Mild, AHI 11.3 but with significant nocturnal hypoxemia Dicks Postsurgical hypothyroidism 06/16/2011 Last Assessment & Plan: Continue synthroid Dyslipidemia 09/04/2009 Overview: Per Lipid Taxonomy. documented as of this encounter (statuses as of 12/13/2022) Resolved Problems Problem Noted Date Resolved Date [...] as of this encounter (statuses as of 12/13/2022) Immunizations Name Administration Dates Next Due COVID-19 mRNA, LNP-s, No Pre serve, 2-Dose Series (LinguaSys) 01/08/2021,12/18/2020 COVID-19, LNP-s, No Preserve , Navarro-sucrose, Ages 12+ (LinguaSys) 2022,10/01/2021 Pneumococcal Conjugate Vacci ne, 20-valent ([id number]) 03/12/2022 Pneumococcal Polysaccharide PPV23 (Pneumovax) 08/22/2009,06/15/2006 Seasonal [...] Telephone Encounter - Lexii Andujar DO - 12/13/2022 12:59 PM EDTSigned Prescriptions: Disp Refills clonazePAM 0.5 MG Oral Tablet (KlonoPIN) 60 Tab*0 Sig: TAKE 1 TABLET BY MOUTH IN THE MORNING AND AT BEDTIMEAuthorizing Provider: LEXII ANDUJAR ARefused Prescriptions: Disp Refills Nortriptyline HCl 25 MG Oral Capsule (Sho*30 Cap*3 Sig: TAKE 1 CAPSULE BY MOUTH ONCE DAILY AT BEDTIMERefused By: LEXII ANDUJAR for Refusal: Course of treatment complete * Telephone Encounter - Lexii Andujar DO - 12/13/2022 12:48 PM EDT I have reviewed the patients controlled substance dispensing history in the Prescription Drug Monitoring Program in compliance with the [facility] regulations before prescribing a controlled substance. [...] Telephone Encounter - Ingrid Rene LPN - 12/13/2022 11:59 AM EDTPending Prescriptions: Disp Refills Nortriptyline HCl 25 MG Oral Capsule [Phar*30 Cap*3 Sig: TAKE 1 CAPSULE BY MOUTH ONCE DAILY AT BEDTIME clonazePAM 0.5 MG Oral Tablet [Pharmacy Me*60 Tab*0 Sig: TAKE 1 TABLET BY MOUTH IN THE MORNING AND AT BEDTIME * Telephone Encounter - Ingrid Rene LPN - 12/13/2022 11:58 AM EDT Did you pend patient's preferred pharmacy and medication before forwarding?yes Pharmacy: [facility] [address] Pending Prescriptions: Disp Refills Nortriptyline HCl 25 MG Oral Capsule (Alicia*30 Cap*3 Sig: TAKE 1 CAPSULE BY MOUTH ONCE DAILY AT BEDTIME clonazePAM 0.5 MG Oral Tablet (KlonoPIN) *60 Tab*0 Sig: TAKE 1 TABLET BY MOUTH IN THE MORNING AND AT BEDTIME Last Visit: Visit date not found (in office), 08/10/2022 (telemedicine) Next Visit: 12/24/2022 If no future appointments scheduled, and last [...] Labs: Lab Results Component Value Date/Time CREAT 1.7 (H) 12/08/2022 03:15 PM CREAT 1.54 (A) 12/26/2021 12:00 AM CREAT 2.0 (H) 05/06/2020 08:46 AM POTASSIUM 4.5 11/01/2022 02:13 PM POTASSIUM 3.6 12/26/2021 12:00 AM POTASSIUM 4.0 05/06/2020 08:46 AM TSH 1.10 11/01/2022 02:13 PM TSH 5.35 (H) 05/06/2020 08:46 AM LDLCALC 120 07/02/2022 03:11 PM LDLCALC UNINTERPRETABLE RESULT 03/14/2019 01:54 PM LDLDIRECT 126 03/14/2019 01:54 PM LDLDIRECT 109 07/14/2017 12:35 PM ALT 14 11/01/2022 02:13 PM ALT 27 05/06/2020 08:46 AM HGBA1C 6.9 (H) 11/01/2022 02:13 PM HGBA1C 7.3 (H) 01/23/2020 11:11 AM [facility] 12/13/2022,11:58 AM documented in this encounter Plan of Treatment Upcoming Encounters Date Type Specialty Care Team Description 12/24/2022 Home Visit [facility] Simi Martinez PA-C [address] [place] [address] 12/28/2022 Office Visit Nephrology Erik Lenz MD [address] [facility] [place] [address] 01/18/2023 Home Visit [facility] Brooke Jose, RN [address] [facility] [place] [address] 01/19/2023 PulmDiagnostic Pulmonary Function West, Pft [address] [facility] [place] [address] 02/11/2023 Office Visit Family Medicine Lexii Andujar, [address] [place] [address] 08/08/2023 Nurse Only [employer]illary [employer], Nurse Annual Wellness Visit [address] [place] [address] Scheduled Procedures Name Priority Associated Diagnoses Date/Ti me COLONOSCOPY FLEXIBLE PROXIMAL DIAGNOSTIC Recall Colon cancer screening Health Maintenance Due Date Last Done Comments Cologuard: Ages 45-75 2000 FOBT: Ages 45-75 2000 Sigmoidoscopy: Ages 45-75 2000 COVID-19 Vaccine (5 - Booster for Pfizer series) 06/08/2022 2022, 10/01/2021, 01/08/2021, Additional history exists CKD PHOS USE SMARTSET 87349 01/07/202312/25, 03/12/2021, 11/17/2020, Additional history exists Mammogram 02/11/2023 02/11/2022, 02/2021, 07/10/2019, Additional history exists HgA1C 05/01/2023 11/01/2022, 04/26, 01/07/2022, Additional history exists DIABETES-EYE EXAM 05/24/2023 05/24/2022, , 04/07/2020, Additional history exists GFR - Renal Function 06/10/2023 12/08/2022, 11/01/2022, 09/13/2022, Additional history exists Albumin/Creatinine Ratio 11/01/2023 023, 01/07/2022, 05/24/2019, Additional history exists CKD HGB USE SMARTSET 29758 11/01/202311/01, 11/01/2022, 06/29/2022, Additional history exists DIABETES-FOOT [...] Diagnoses Diagnosis Fibromyalgia Mylagia and myositis, unspecified Restless legs syndrome Restless legs syndrome (RLS) Anxiety state Anxiety state, unspecified documented in this encounter Advance Directives Documents on File Type Date Recorded Patient Cst Expl anation POLST 03/19/2020 4:25 PM POLST [...] the patient have Health Care Power of Dough Sheeter? No Healthcare Agents on File Name Relationship Healthcare Agent Relationship Communication Lexii Camp Other - (no specific identity) Health Care Power of Dough Sheeter Princess Allen Other - (no specific identity) Health Care Power of Dough Sheeter Care Teams Advertising Designer Relationship Specialty Start Date End Date Lexii Andujar, DO [address] [place] [address] PCP - General Internal Medicine 01/07/22 documented as of this encounter
--- OUTSIDE RECORDS SUMMARY | 2023-06-01 04:16 | External Medical Summary | Summary of Care ---
Author Name Unknown Organization [facility] Address [address] [place] [address] Phone [phone] Care Team Providers Care Thread Clipper Name Role Phone PratimaGaldino DO Primary Care Provider [phone] Encounter Details Date Type Department Care Team Description 12/13/2022 Office Visit Audiology [facility] [address] [place] [address] Soraya Mar Au.D. [address] [place] [address] Tinnitus, subjective, bilateral*; Sensorineural hearing loss (SNHL) of both ears Allergies Active Allergy Reactions Severity Noted Date [...] directed continuous. 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 Abnormality of gait 02/02/[address] [place] [address] 08/19/2014 History of pulmonary [...] failure, acute 09/14/200902/15 Spontaneous pneumothorax 09/14/2009 017 ELILE (generalized anxiety disorder) 09/13/2009 07/02/2022 Last Assessment [...] mRNA, LNP-s, No Pre serve, 2-Dose Series (FlipGive) 01/08/2021,12/18/2020 COVID-19, LNP-s, No Preserve , Navarro-sucrose, Ages 12+ (Pfizer) 2022,10/01/2021 Pneumococcal Conjugate Vacci ne, 20-valent ([id number]) 03/12/2022 Pneumococcal Polysaccharide PPV23 (Pneumovax) 08/22/2009,06/15/2006 Seasonal [...] as of this encounter Progress Notes * Kimberly Gil - 12/13/2022 2:17 PM EDT Pt c/o tinnitus and decreased hearing. Denies pain and pressure. Otoscopy clear canals and TMs, AU Tympanometry 40744 Right: WNL for static admittance, tympanometric peak pressure, equivalent volume, and tympanic width("Type A") Left: WNL for static admittance, tympanometric peak pressure, equivalent volume, and tympanic width("Type A") Standard audiometric testing 50951 ABSD Headphones Good reliability Right: Hearing thresholds are within normal limits with a mild sloping to severe SNHL at 3-8k Hz Left: Hearing thresholds are within normal limits with a mild SNHL at 3-8k Hz Speech recognition thresholds were consistent with hearing thresholds. Word recognition scores, obtained via live voice were: right 96%, left 92% Counseled on results and recommend sound machine, lower salt and caffeine intake. Retest every 1-2 years. documented in this encounter Plan of Treatment Upcoming Encounters Date Type Specialty Care Team Description 12/24/2022 Home Visit [facility] Simi Martinez PA-C [address] [place] [address] 12/28/2022 Office Visit Nephrology Erik Lenz MD [address] [place] [address] 01/18/2023 Home Visit [facility] Brooke Jose RN [address] [place] [address] 01/19/2023 PulmDiagnostic Pulmonary Function West, Pft [address] [place] [address] 02/11/2023 Office Visit Family Medicine Galdino Andujar, [address] [place] [address] 08/08/2023 Nurse Only Ancillary College, Nurse Annual Wellness Visit [address] [facility] [address] [place] [address] Scheduled Procedures Name Priority Associated Diagnoses Date/Ti me COLONOSCOPY FLEXIBLE PROXIMAL DIAGNOSTIC Recall Colon cancer screening Health Maintenance Due Date Last Done Comments Cologuard: Ages 45-75 2000 FOBT: Ages 45-75 2000 Sigmoidoscopy: Ages 45-75 2000 COVID-19 Vaccine (5 - Booster for Pfizer series) 06/08/2022 2022, 10/01/2021, 01/08/2021, Additional history exists CKD PHOS USE SMARTSET 72011 01/07/202312/25, 03/12/2021, 11/17/2020, Additional history exists Mammogram 02/11/2023 02/11/2022, 01/0 02/2021, 07/10/2019, Additional history exists HgA1C 05/01/2023 11/01/2022, 04/26, 01/07/2022, Additional history exists DIABETES-EYE EXAM 05/24/2023 05/24/2022, , 04/07/2020, Additional history exists GFR - Renal Function 06/10/2023 12/08/2022, 11/01/2022, 09/13/2022, Additional history exists Albumin/Creatinine Ratio 11/01/2023 023, 01/07/2022, 05/24/2019, Additional history exists CKD HGB USE SMARTSET 05968 11/01/202311/01, 11/01/2022, 06/29/2022, Additional history exists DIABETES-FOOT [...] as of this encounter Visit Diagnoses Diagnosis Tinnitus, subjective, bilateral- Primary Sensorineural hearing loss (SNHL) of both ears documented in this encounter Advance Directives Documents on File Type Date Recorded Patient Track Service Person Expl anation POLST 03/19/2020 4:25 PM POLST [...] the patient have Health Care Power of Pipe Changer? No Healthcare Agents on File Name Relationship Healthcare Agent Relationship Communication Galdino Camp Other - (no specific identity) Health Care Power of Pipe Changer Princess Allen Other - (no specific identity) Health Care Power of Pipe Changer Care Teams Thread Clipper Relationship Specialty Start Date End Date Galdino Andujar, [address] [place] [address] PCP - General Internal Medicine 01/07/22 documented as of this encounter
--- OUTSIDE RECORDS SUMMARY | 2023-06-01 04:16 | External Medical Summary | Continuity of Care Document ---
Author Name Unknown Organization [facility] [address] Address [address] [place] [id number] Care Team Providers Care Entry Level Software Engineer Name Role Phone Galdino Andujar Primary Care Physician [phone] [id number] Date(s): 12/28/22 - 12/28/22 [place] [address] [place] [address] [place] [phone] Encounter Diagnosis Carotid stenosis, bilateral(Discharge Diagnosis) - 12/28/22 Discharge Disposition: Home or Self Care Attending Physician: MD Tang Eugene J Referring Physician: DO Andujar Scott A Allergies, Adverse Reactions, Alerts Substance Reaction Severity Status heparin Heparin-induced thrombocytopenia with thr ombosis Active morphine Agitation Active Jardiance UTI - urinary tract infection in pregnanc y Active Medications Ativan 1 mg oral tablet Start: 12/09/22 9:30:00 EDT, 1 tab, PO, ONCE, Disp# 1 tab, Refills: 0, TAKE WITHIN 1 HR OF MRA TEST., Pharmacy: [id number] Start Date: 12/09/22 Status: Ordered baclofen 5 mg oral tablet TAKE 1 TABLET BY MOUTH TWICE DAILY NEEDED FOR MUSCLE SPASMS Start Date: 12/06/22 Status: Ordered clonazePAM 0.5 mg oral tablet Start: 11/12/21 11:26:00 EST, 1 tab, PO, bid Start Date: 11/12/21 Status: Ordered cyclobenzaprine 10 mg oral tablet Start: 11/12/21 11:25:00 EST Start Date: 11/12/21 Status: Ordered dicyclomine Start: 11/12/21 11:31:00 EST Start Date: 11/12/21 Status: Ordered DULoxetine 30 mg oral delayed release capsule Start: 11/12/21 11:25:00 EST, 2 cap, PO, Daily Start Date: 11/12/21 Status: Ordered Eliquis 5 mg oral tablet TAKE 1 TABLET BY MOUTH IN THE MORNING AND AT BEDTIME Start Date: 12/06/22 Status: Ordered furosemide 40 mg oral tablet TAKE 1 AND 1/2 TABLETS BY MOUTH IN THE MORNING AND AT BEDTIME Start Date: 12/06/22 Status: Ordered levothyroxine 200 mcg (0.2 mg) oral tablet Start: 11/12/21 11:27:00 EST, 1 tab, PO, Daily, total 250 mcg po daily Start Date: 11/12/21 Status: Ordered levothyroxine 50 mcg (0.05 mg) oral tablet Start: 11/12/21 11:25:00 EST, 1 tab, PO, Daily Start Date: 11/12/21 Status: Ordered meclizine 12.5 mg oral tablet Start: 11/12/21 11:27:00 EST, 1 tab, PO, tid, PRN: as needed for dizziness Start Date: 11/12/21 Status: Ordered NovoLOG FlexPen 100 units/mL injectable solution Start: 11/12/21 11:26:00 EST, sliding scale Start Date: 11/12/21 Status: Ordered ondansetron 4 mg oral tablet Start: 11/12/21 11:25:00 EST Start Date: 11/12/21 Status: Ordered Potassium Chloride (Fki-Xqlj-Com M10) 10 mEq oral tablet, extended release Start: 11/12/21 11:27:00 EST, 1 tab, PO, qMonWedFri Start Date: 11/12/21 Status: Ordered rOPINIRole 2 mg oral tablet Start: 11/12/21 11:26:00 EST, 1 tab, PO, Daily Start Date: 11/12/21 Status: Ordered traMADol 50 mg oral tablet Start: 11/12/21 11:26:00 EST, 1 tab, PO, q4h, PRN: as needed for pain Start Date: 11/12/21 Status: Ordered traZODone 50 mg oral tablet Start: 11/12/21 11:26:00 EST, 1 tab, PO, qhs Start Date: 11/12/21 Status: Ordered Tresiba FlexTouch 100 units/mL subcutaneous solution Start: 11/12/21 11:26:00 EST, 60 unit =, subQ, qPM Start Date: 11/12/21 Status: Ordered Trulicity Pen 4.5 mg/0.5 mL subcutaneous solution Start: 11/12/21 11:26:00 EST, 4.5 mg =, subQ, q7days Start Date: 11/12/21 Status: Ordered unlisted medication Start: 11/12/21 11:31:00 EST, nervine for neuropathy Start Date: 11/12/21 Status: Ordered Mental Status 12/28/22 Barriers to Learning one year None evide nt Mandatory Health Literacy Documentation Yes Health Literacy Communication Barriers N ever Primary Language Sinhala Problem List Condition Confirmation Course Effective Dates Status Health St atus Informant Carotid stenosis, bilateral Confirmed Active Carotid stenosis, right Confirmed Active Diagnosis Diagnosis Type Effective Dates Health Status Cl inical Service Informant Carotid stenosis, bilateral Discharge Diagnosis 12/28/22 Non-Specified Vital Signs Most recent to oldest [Reference Range]: 1 Patient Weight 143.3 kg (12/28/22 2:39 PM) Heart Rate 102 bpm (12/28/22 2:39 PM) Respiratory Rate 20 br/min (12/28/22 2:39 PM) Blood Pressure 118/60mmHg (12/28/22 2:39 PM) BP Location # 1 Right Arm (12/28/22 2:39 PM) Social History Social History Type Response Smoking Status Former Smoker, quit > 1 yr Sex Female Patient Care team information Care Team Personnel Name: EVIN Waggoner Lynn Position: Physician Cyber Security Architect Exempt - Vasc Surg Member Role: Lifetime Relationship Address: Address: [address] [place] [id number] [place] Name: DO Andujar Scott A Position: Referring DIRECT Member Role: Primary Care Provider Address: Address: [address] [place] [address] [place]
--- OUTSIDE RECORDS SUMMARY | 2023-06-01 04:16 | External Medical Summary | Summary of Care ---
Author Name Unknown Organization [facility] Address [address] [place] [address] Phone [phone] Care Team Providers Care Tutor Name Role Phone Lexii Andujar DO Primary Care Provider [phone] Reason for Visit * Reason Onset Date Comments Medication Refill 01/10/2023 Encounter Details Date Type Department Care Team Description 01/10/2023 Refill Family Practice [address] [place] [address] [place] [phone] Lexii Andujar DO [address], [place] [id number] Lumbar radiculopathy; Primary osteoarthritis of left knee Allergies Active Allergy Reactions [...] 0 04/08/2020 Active Blood Glucose Monitoring Suppl (PLAXDTOUCH ULTRA 2) w/Device KIT Use to test [...] mellitus with hemoglobin A1c goal of 7.0%-8.0% ([facility]) INJECT 60 UNITS UNDER THE SKIN [...] 08/25/2022 Active Magnesium Oxide 400 MG Oral CapsuleIndications: [...] 08/31/2022 Active Furosemide 40 MG Oral Tablet (Lasix)Indications: [...] 11/17/2022 Active Baclofen 5 MG Oral Tablet (Lioresal)Indicatio ns:Fibromyalgia TAKE 1 TABLET BY MOUTH TWICE DAILY NEEDED FOR MUSCLE SPASMS 60 Tablet 1 11/17/2022 Active clonazePAM 0.5 MG Oral Tablet (KlonoPIN)Indicatio ns:Restless legs syndrome,Anxiety state TAKE 1 TABLET BY MOUTH IN THE MORNING AND AT BEDTIME 60 Tablet 0 12/13/2022 Active traMADol HCl 50 MG Oral Tablet (Ultram)Indications :Lumbar radiculopathy,Prima ry osteoarthritis of left knee Take 1 Tablet by mouth every 8 hours as needed for Pain, Severe. 90 Tablet 0 01/11/2023 Active Trulicity 4.5 MG/0.5ML Subcutaneous Solution Pen-injector (Dulaglutide) Inject 1 pen under the skin weekly 6 mL 1 01/11/2023 Active Trulicity 4.5 MG/0.5ML Subcutaneous Solution Pen-injector (Dulaglutide) Inject 1 pen under the skin weekly 6 mL 5 11/03/2021 3 Discontinu ed(Refill) traMADol HCl 50 MG Oral Tablet (Ultram)Indications :Lumbar radiculopathy,Prima ry osteoarthritis of left knee Take 1 Tablet by mouth every 8 hours as needed for Pain, Severe. 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/31/2021 Atherosclerosis of [place] coronary arter 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 12/31/2021 [...] Plan: Continue tramadol Abnormality of gait 02/02/[address] [place] [address] 08/19/2014 History of pulmonary [...] mRNA, LNP-s, No Pre serve, 2-Dose Series ([employer]) 01/08/2021,12/18/2020 COVID-19, LNP-s, No Preserve , Navarro-sucrose, Ages 12+ (Pfizer) 2022,10/01/2021 Pneumococcal Conjugate Vacci ne, 20-valent ([id number]) 03/12/2022 Pneumococcal Polysaccharide PPV23 (Pneumovax) 08/22/2009,06/15/2006 Seasonal [...] Telephone Encounter - Lexii Andujar DO - 01/11/2023 3:40 PM EDTSigned Prescriptions: Disp Refills traMADol HCl 50 MG Oral Tablet (Ultram) 90 Tab*0 Sig: Take 1 Tablet by mouth every 8 hours as needed for Pain, Severe.Authorizing Provider: LEXII ANDUJAR 4.5 MG/0.5ML Subcutaneous Soluti*6 mL 1 Sig: Inject 1 pen under the skin weeklyAuthorizing Provider: LEXII ANDUJARing User: TAHMINA PAREKH * Telephone Encounter - Tahmina Parekh [facility] - 01/11/2023 2:35 PM EDTPending Prescriptions: Disp Refills traMADol HCl 50 MG Oral Tablet (Ultram) 90 Tab*0 Sig: Take 1 Tablet by mouth every 8 hours as needed for Pain, Severe. Signed Prescriptions: Disp Refills Trulicity 4.5 MG/0.5ML Subcutaneous Soluti*6 mL 1 Sig: Inject 1 pen under the skin weekly Authorizing Provider: LEXII ANDUJAR User: TAHMINA PAREKH * Telephone Encounter - Tahmina Parekh [facility] - 01/11/2023 2:33 PM EDT I have reviewed the patients controlled substance dispensing history in the Prescription Drug Monitoring Program in compliance with the [facility] regulations before prescribing a controlled substance. PDMP checked on 01/11/2023. Pending Prescriptions: Disp Refills traMADol HCl 50 MG Oral Tablet (Ultram) 90 Tab*0 Sig: Take 1 Tablet by mouth every 8 hours as needed for Pain, Severe. Trulicity 4.5 MG/0.5ML Subcutaneous Solut*6 mL 1 Sig: Inject 1 pen under the skin weekly Last Visit: 12/08/2022 (in office), 11/26/2022 (telemedicine) Next Visit: 02/11/2023 Date medication was last filled: 11/26/22 Date medication is due for refill: 12/25/22 Pharmacy: [address] Is this request for a controlled [...] Review. Please approve if appropriate. Thanks, Tahmina Parekh PharmD Clinical Pharmacist Telepharmacy [phone] 01/11/2023, 2:34 PM * Telephone Encounter - CHALO Rushing - 01/10/2023 2:15 PM EDT Did you pend patient's preferred pharmacy and medication before forwarding?yes Pharmacy: [address] Pending Prescriptions: Disp Refills traMADol HCl 50 MG Oral Tablet (Ultram) 90 Tab*0 Sig: Take 1 Tablet by mouth every 8 hours as needed for Pain, Severe. Trulicity 4.5 MG/0.5ML Subcutaneous Solut*6 mL 5 Sig: Inject 1 pen under the skin weekly Last Visit: 12/08/2022 (in office), 11/26/2022 (telemedicine) Next Visit: 02/11/2023 If no future appointments scheduled, and last appointment is greater than a year ago, please schedule patient for a follow-up appointment Last date the medication was ordered: 11-17-22,11-03-21 Is this request for a controlled substance?Yes, What was the last refill date 11-17-22 w/ quantity 90 and dosage 50mgand Urine Drug Screen was completed Urine Drug Screen: Results for orders placed [...] PM HGBA1C 7.3 (H) 01/23/2020 11:11 AM documented in this encounter Plan of Treatment Upcoming Encounters Date Type Specialty Care Team Description 01/18/2023 [facility] [place] [address] 01/19/2023 PulmDiagnostic Pulmonary Function [place], [address] [facility] [place] [address] 02/02/2023 Home Visit [facility] Simi Martinez PA-C [address] [place] [address] 02/11/2023 Office Visit Family Medicine Lexii Andujar, [address] [place] [address] 08/08/2023 Nurse Only Ancillary College, Nurse Annual Wellness Visit [address] [place] [address] Scheduled Procedures Name Priority Associated Diagnoses Date/Ti me COLONOSCOPY FLEXIBLE PROXIMAL DIAGNOSTIC Recall Colon cancer screening Health Maintenance Due Date Last Done Comments Cologuard: Ages 45-75 2000 FOBT: Ages 45-75 2000 Sigmoidoscopy: Ages 45-75 2000 COVID-19 Vaccine (5 - Booster for Pfizer series) 06/08/2022 2022, 10/01/2021, 01/08/2021, Additional history exists CKD PHOS USE SMARTSET 49674 01/07/202312/25, 03/12/2021, 11/17/2020, Additional history exists Mammogram 02/11/2023 02/11/2022, 01/0 02/2021, 07/10/2019, Additional history exists HgA1C 05/01/2023 11/01/2022, 04/26, 01/07/2022, Additional history exists DIABETES-EYE EXAM 05/24/2023 05/24/2022, , 04/07/2020, Additional history exists GFR - Renal Function 06/10/2023 12/08/2022, 11/01/2022, 09/13/2022, Additional history exists Albumin/Creatinine Ratio 11/01/2023 023, 01/07/2022, 05/24/2019, Additional history exists CKD HGB USE SMARTSET 54155 11/01/202311/01, 11/01/2022, 06/29/2022, Additional history exists DIABETES-FOOT [...] of this encounter Visit Diagnoses Diagnosis Lumbar radiculopathy Thoracic or lumbosacral neuritis or radiculitis, unspecified Primary osteoarthritis of left knee Primary localized osteoarthrosis, lower leg documented in this encounter Advance Directives Documents on File Type Date Recorded Patient Desizing Machine Operator Expl anation POLST 03/19/2020 4:25 [...] the patient have Health Care Power of Ramp And Cargo Supervisor? No Healthcare Agents on File Name Relationship Healthcare Agent Relationship Communication Lexii Camp Other - (no specific identity) Health Care Power of Ramp And Cargo Supervisor Princess Allen Other - (no specific identity) Health Care Power of Ramp And Cargo Supervisor Care Teams Tutor Relationship Specialty Start Date End Date Lexii Andujar, [address] [place] [address] PCP - General Internal Medicine 01/07/22 documented as of this encounter
--- OUTSIDE RECORDS SUMMARY | 2023-06-01 04:16 | External Medical Summary | Summary of Care ---
Author Name Unknown Organization [facility] [address] [facility] [address] Phone [phone] Care Team Providers Care Sales And Service Advisor Name Role Phone PratimaGaldino DO Primary Care Provider [phone] Encounter Details Date Type Department Care Team Description 12/13/2022 Orders Only Otolaryngology [facility] [address] [place] [address] Soraya Mar Au.D. [address] [place] [address] Allergies Active Allergy Reactions Severity Noted Date [...] Dispensed Refills Start Date End Date Status VALENTINATOGRABIEL DELFRANTZ LANCETS 33G MISC Check blood sugars 3-4 times daily 180 Each 5 08/01/2018 Active oxygen GASIndications:ELISSA (obstructive sleep apnea) Use 3 L/min(Oxygen) as directed continuous. 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 Abnormality of gait 02/02/[address] 08/19/2014 History of pulmonary [...] mRNA, LNP-s, No Pre serve, 2-Dose Series (Active DSP) 01/08/2021,12/18/2020 COVID-19, LNP-s, No Preserve , Navarro-sucrose, Ages 12+ (Pfizer) 2022,10/01/2021 Pneumococcal Conjugate Vacci ne, 20-valent ([id number]) 03/12/2022 Pneumococcal Polysaccharide PPV23 (Pneumovax) 08/22/2009,06/15/2006 Seasonal [...] Simi Martinez PA-C [address] [place] [address] 12/28/2022 Office Visit Nephrology Erik Lenz MD [address] [facility], [place] [address] 01/18/2023 Home Visit [facility] Brooke Jose RN [address] [place] [address] 01/19/2023 PulmDiagnostic Pulmonary Function West, [address] [place] [address] 02/11/2023 Office Visit Family Medicine Galdino Andujar, DO [address] [place] [address] 08/08/2023 Nurse Only Ancillary College, Nurse Annual Wellness Visit [address] [place] [place] [address] Scheduled Procedures Name Priority Associated Diagnoses Date/Ti me COLONOSCOPY FLEXIBLE PROXIMAL DIAGNOSTIC Recall Colon cancer screening Health Maintenance Due Date Last Done Comments Cologuard: Ages 45-75 2000 FOBT: Ages 45-75 2000 Sigmoidoscopy: Ages 45-75 2000 COVID-19 Vaccine (5 - Booster for Pfizer series) 06/08/2022 2022, 10/01/2021, 01/08/2021, Additional history exists CKD PHOS USE SMARTSET 08826 01/07/202312/25, 03/12/2021, 11/17/2020, Additional history exists Mammogram 02/11/2023 02/11/2022, 02/2021, 07/10/2019, Additional history exists HgA1C 05/01/2023 11/01/2022, 04/26, 01/07/2022, Additional history exists DIABETES-EYE EXAM 05/24/2023 05/24/2022, , 04/07/2020, Additional history exists GFR - Renal Function 06/10/2023 12/08/2022, 11/01/2022, 09/13/2022, Additional history exists Albumin/Creatinine Ratio 11/01/20232 023, 01/07/2022, 05/24/2019, Additional history exists CKD HGB USE SMARTSET 67033 11/01/202311/01, 11/01/2022, 06/29/2022, Additional history exists DIABETES-FOOT [...] Procedure Name Priority Date/Time Associated Diagnosis Comments AUDIOMETRIC RESULT 12/13/2022 documented in this encounter Results * AUDIOMETRIC RESULT (12/13/2022) 12/13/2022 Soraya Harris HEARING SE RVICES documented in this encounter Advance Directives Documents on File Type Date Recorded Patient Hydraulic Controls Technician Expl anation POLST 03/19/2020 4:25 PM [...] the patient have Health Care Power of Match Up Worker? No Healthcare Agents on File Name Relationship Healthcare Agent Relationship Communication Galdino Camp Other - (no specific identity) Health Care Power of Match Up Worker Princess Allen Other - (no specific identity) Health Care Power of Match Up Worker Care Teams Sales And Service Advisor Relationship Specialty Start Date End Date Galdino Andujar, DO [address] [place] [address] PCP - General Internal Medicine 01/07/22 documented as of this encounter
--- OUTSIDE RECORDS SUMMARY | 2023-06-01 04:16 | External Medical Summary | Summary of Care ---
Author Name Unknown Organization [facility] Address [address] [place] [address] Phone [phone] Care Team Providers Care Patient Accounts Specialist Name Role Phone Galdino Andujar DO Primary Care Provider [phone] Reason for Visit * Reason Comments Dosage Adjustment Via Phone (anticoag Cl inic) Diabetes Follow-Up Encounter Details Date Type Department Care Team Description 11/26/2022 Telemedicine Family Practice [address] [facility] [address] [place] [phone] College, Pharmacist [address] [id number] Type 2 diabetes mellitus with stage 3b chronic kidney disease, with long-term current use of insulin ([facility])* Allergies Active Allergy Reactions Severity Noted Date [...] as of this encounter (statuses as of 12/27/2022) Medications Medication Sig Dispensed Refills Start Date [...] of 7.0%-8.0% (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/31/2021 Atherosclerosis of [place] coronary arter 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 [...] Plan: Continue tramadol Abnormality of gait 02/02/[address] [place] [address] 08/19/2014 History of pulmonary [...] as of this encounter (statuses as of 12/27/2022) Resolved Problems Problem Noted Date Resolved Date [...] as of this encounter (statuses as of 12/27/2022) Immunizations Name Administration Dates Next Due COVID-19 mRNA, LNP-s, No Pre serve, 2-Dose Series ([employer]) 01/08/2021,12/18/2020 COVID-19, LNP-s, No Preserve , Navarro-sucrose, Ages 12+ (Pfizer) 2022,10/01/2021 Pneumococcal Conjugate Vacci ne, 20-valent ([id number]) 03/12/2022 Pneumococcal Polysaccharide PPV23 (Pneumovax) 08/22/2009,06/15/2006 Seasonal [...] Progress Notes * Frances Duong RPh - 11/26/2022 3:58 PM EST Error documented in this encounter Plan of Treatment Upcoming Encounters Date Type Specialty Care Team Description 01/18/2023 Home Visit [facility] Brooke Jose RN [address] [place] [address] 01/19/2023 PulmDiagnostic Pulmonary Function [place], [address] [place] [address] 02/02/2023 Home Visit [facility] Simi Martinez PA-C [address] [address] 02/11/2023 Office Visit Family Medicine Galdino Andujar, [address] [place] [address] 08/08/2023 Nurse Only Ancillary College, Nurse Annual Wellness Visit [address] [facility], [place] [address] Scheduled Procedures Name Priority Associated Diagnoses Date/Ti me COLONOSCOPY FLEXIBLE PROXIMAL DIAGNOSTIC Recall Colon cancer screening Health Maintenance Due Date Last Done Comments Cologuard: Ages 45-75 2000 FOBT: Ages 45-75 2000 Sigmoidoscopy: Ages 45-75 2000 COVID-19 Vaccine (5 - Booster for Pfizer series) 06/08/2022 2022, 10/01/2021, 01/08/2021, Additional history exists CKD PHOS USE SMARTSET 20233 01/07/202312/25, 03/12/2021, 11/17/2020, Additional history exists Mammogram 02/11/2023 02/11/2022, 01/0 02/2021, 07/10/2019, Additional history exists HgA1C 05/01/2023 11/01/2022, 04/26, 01/07/2022, Additional history exists DIABETES-EYE EXAM 05/24/2023 05/24/2022, , 04/07/2020, Additional history exists GFR - Renal Function 06/10/2023 12/08/2022, 11/01/2022, 09/13/2022, Additional history exists Albumin/Creatinine Ratio 11/01/2023 023, 01/07/2022, 05/24/2019, Additional history exists CKD HGB USE SMARTSET 71247 11/01/202311/01, 11/01/2022, 06/29/2022, Additional history exists DIABETES-FOOT [...] Documents on File Type Date Recorded Patient Name Plate Stamper Expl anation POLST 03/19/2020 4:25 PM POLST [...] the patient have Health Care Power of Yard Assistant? No Healthcare Agents on File Name Relationship Healthcare Agent Relationship Communication Galdino Camp Other - (no specific identity) Health Care Power of Yard Assistant Princess Allen Other - (no specific identity) Health Care Power of Yard Assistant Care Teams Patient Accounts Specialist Relationship Specialty Start Date End Date Galdino Andujar, DO [address] [place] [address] PCP - General Internal Medicine 01/07/22 documented as of this encounter
--- OUTSIDE RECORDS SUMMARY | 2023-06-01 04:16 | External Medical Summary | Summary of Care ---
Author Name Unknown Organization [facility] Address [address] [place] [address] Phone [phone] Care Team Providers Care Manager Call Name Role Phone Galdino Andujar DO Primary Care Provider [phone] Encounter Details Date Type Department Care Team Description 12/24/2022 Home Visit [facility] [address] [place] [address] Simi Martinez PA-C [address] [place] [id number] Advanced care planning/counseling discussion*; Atherosclerosis of pilot [place] coronary artery of pilot [place] heart without angina pectoris; Carotid artery stenosis, asymptomatic, right; Essential hypertension with goal blood pressure less than 140/90; Frank filter in place; 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 3b chronic kidney disease ([facility]); Recurrent deep vein thrombosis (DVT) of both lower extremities ([facility]); Chronic hypoxemic respiratory failure ([facility]); ELISSA (obstructive sleep apnea); Type 2 diabetes mellitus with hemoglobin A1c goal of less than 8.0% ([facility]); Fibromyalgia; Restless legs syndrome; Chronic kidney disease, stage 3b ([facility]); History of pulmonary embolus (PE); Moderate episode of recurrent major depressive disorder ([facility]) Allergies Active Allergy Reactions Severity Noted Date [...] directed continuous. 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 [facility] Problem Oriented Charting Provider Visit Date: 12/24/2022 Time: 9:11 AM [facility] Sub-Program: Primary Care at Home [facility] Episode Start Date: Noted: 06/14/2022 Assessment and Plan Advanced care planning/counseling discussion - Advance Care Plan Discussed/Alternate Decision Maker Doc'd Atherosclerosis of pilot point coronary artery of pilot [place] heart without angina pectoris Assessment & Plan: [...] -continue oxygen 3 L at all times. ELSISA (obstructive sleep apnea) Assessment & Plan: Compliant with CPAP Type 2 diabetes mellitus with hemoglobin A1c goal of less than 8.0% ([facility]) Assessment & Plan: Current Status: "Stable" for [...] Continue Requip Chronic kidney disease, stage 3b ([facility]) History of pulmonary embolus (PE) Assessment & Plan: Continue Eliquis Moderate episode of recurrent major depressive disorder ([facility]) Assessment & Plan: Stable on duloxetine Additional Medical Decision Making: Stephanie is doing well at home. Stable. Next provider visit 4-6 weeks Scheduled appointments in the next 60 days: Future Appointments-next 60 days Date/Time Provider Specialty Dept Phone 01/18/2023 12:30 PM Brooke Jose RN [facility] [phone] 01/19/2023 2:00 PM [facility] [phone] 02/11/2023 11:20 AM (Arrive by 11:05 AM) Galdino Andujar DO Family Medicine [phone] 08/08/2023 2:00 PM Nurse Annual Wellness Visit [address] [place] [address] A total of 50 minutes was spent face to face (via video-based telemedicine if designated as a telemedicine visit) Subjective Subjective Is this a Telemedicine Visit? No, this is an Home Visit. Reason For [facility] Visit: Follow-Up Current Concerns: Stephanie Camp is [...] sent to PCP (via [facility]ofax if non-[facility]), [facility] Care Team members,relevant Specialty [...] Note - Simi Martinez PA-C - 12/24/2022 2:47 PM EDT Associated [...] 2:40 PM EDT Associated Problem(s): Atherosclerosis of pilot [place] coronary arter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 No chest [...] Newer data is on the left. Synopsis [employer] Most Recent Value Past ~10 years 07/01/2022 [...] a vegetable" (define below);Unable to feed themselves;Prolonged care home stay (define below);Prolonged mechanical ventilation (define below);Prolonged hospital stay (define below) 03/24/2021 "Being a vegetable", patient defines as: no possible way that i can come back 03/24/2021 Prolonged hospital stay, patient defines as: no hope of ever gettig out of hospital 03/24/2021 Prolonged care home stay, patient defines as: no hope of [...] Newer data is on the left. Synopsis [employer] Most Recent Value Past ~10 years 11/22/2022 [...] data. Newer data is on the left. [employer] Most Recent Value Past ~10 years 03/24/2021 [...] Newer data is on the left. Synopsis [employer] Most Recent Value Past ~10 years 03/24/2021 [...] data. Newer data is on the left. [employer] Most Recent Value Past ~10 years 01/12/2022 10:02 Non-invasive ventilation or BIPAP Their goals for Non-invasive ventilation or BIPAP treatment are: if it is short term 01/12/2022 if it is short term Contains data within 01/12/2022 to 01/12/2022 and each row's most recent data. Newer data is on the left. [employer] Most Recent Value Past ~10 years 01/12/2022 10:02 IV hydration Their goals for IV hydration treatment are: short term only 01/12/2022 short term only Source: Content from [employer] Program 10 minutes spent in direct [id number] discussion today, Simi Martinez PA-C documented in this encounter Plan of Treatment Upcoming Encounters Date Type Specialty Care Team Description 01/18/2023 [facility] [address] 01/19/2023 [facility]Diagnostic [facility] Function [facility], [facility] [address] [facility] [place] [address] 02/02/2023 Home Visit [facility] Simi Martinez PA-C [address] [facility] [place] [address] 02/11/2023 Office Visit Family Medicine Galdino Andujar, DO [address] [place] [address] 08/08/2023 Nurse Only [employer], Nurse Annual Wellness Visit [address] [facility] [place] [address] Scheduled Procedures Name Priority Associated Diagnoses Date/Ti me COLONOSCOPY FLEXIBLE PROXIMAL DIAGNOSTIC Recall Colon cancer screening Health Maintenance Due Date Last Done Comments Cologuard: Ages 45-75 2000 FOBT: Ages 45-75 2000 Sigmoidoscopy: Ages 45-75 2000 COVID-19 Vaccine (5 - Booster for Pfizer series) 06/08/2022 2022, 10/01/2021, 01/08/2021, Additional history exists CKD PHOS USE SMARTSET 24996 01/07/202312/25, 03/12/2021, 11/17/2020, Additional history exists Mammogram 02/11/2023 02/11/2022, 02/2021, 07/10/2019, Additional history exists HgA1C 05/01/2023 11/01/2022, 04/26, 01/07/2022, Additional history exists DIABETES-EYE EXAM 05/24/2023 05/24/2022, , 04/07/2020, Additional history exists GFR - Renal Function 06/10/2023 12/08/2022, 11/01/2022, 09/13/2022, Additional history exists Albumin/Creatinine Ratio 11/01/2023 023, 01/07/2022, 05/24/2019, Additional history exists CKD HGB USE SMARTSET 45060 11/01/202311/01, 11/01/2022, 06/29/2022, Additional history exists DIABETES-FOOT [...] discussion- Primary Other specified counseling Atherosclerosis of pilot point coronary artery of pilot [place] heart without angina pectoris Carotid artery stenosis, [...] Documents on File Type Date Recorded Patient Wardrobe Specialist Expl anation POLST 03/19/2020 4:25 PM [...] the patient have Health Care Power of Leather Seasoner? No Healthcare Agents on File Name Relationship Healthcare Agent Relationship Communication Galdino Camp Other - (no specific identity) Health Care Power of Leather Seasoner Princess Allen Other - (no specific identity) Health Care Power of Leather Seasoner Care Teams Manager Call Relationship Specialty Start Date End Date Galdino Andujar, [address] [place] [phone] PCP - General Internal Medicine 01/07/22 documented as of this encounter
--- OUTSIDE RECORDS SUMMARY | 2023-06-01 04:17 | External Medical Summary | Summary of Care ---
Author Name Unknown Organization [facility] Address [address] [place] [address] Phone [phone] Care Team Providers Care Trim Mechanic Name Role Phone Galdino Andujar DO Primary Care Provider [phone] Reason for Visit * Reason Onset Date Comments Medication Pre-auth 11/24/2022 Encounter Details Date Type Department Care Team Description 11/24/2022 Telephone Family Practice [address] [facility] [place] [address] [place] [address] Galdino Andujar DO [address] [place] [address] Medication Pre-auth Allergies Active Allergy Reactions Severity Noted Date [...] as of this encounter (statuses as of 11/27/2022) Medications Medication Sig Dispensed Refills Start Date End Date Status ONETOUCH DELICA LANCETS 33G MISC Check blood sugars 3-4 times daily 180 Each 5 08/01/2018 Active oxygen GASIndications:ELISSA (obstructive sleep apnea) Use 3 L/min(Oxygen) as directed continuous. 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:Commodity Supervisor zahra diastolic congestive heart failure (HCC) If [...] goal of 7.0%-8.0% ([facility]) INJECT 60 UNITS UNDER THE SKIN EVERY [...] THE MORNING 30 Capsule 3 11/17/2022 Active clonazePAM 0.5 MG Oral Tablet (KlonoPIN)Indication s:Restless legs syndrome,Anxiety state TAKE 1 TABLET BY MOUTH IN THE MORNING AND AT BEDTIME 60 Tablet 0 11/17/2022 Active Baclofen 5 MG Oral Tablet (Lioresal)Indication s:Fibromyalgia TAKE 1 TABLET BY MOUTH TWICE DAILY NEEDED FOR MUSCLE SPASMS 60 Tablet 1 11/17/2022 Active traMADol HCl 50 MG Oral Tablet (Ultram)Indications: Lumbar radiculopathy,Primar y osteoarthritis of left knee Take 1 Tablet by mouth every 8 hours as needed for Pain, Severe. 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 Abnormality of gait 02/02/2016 Frank filter in [...] as of this encounter (statuses as of 11/27/2022) Resolved Problems Problem Noted Date Resolved Date Type 2 diabetes mellitus wit h diabetic [...] as of this encounter (statuses as of 11/27/2022) Immunizations Name Administration Dates Next Due COVID-19 mRNA, LNP-s, No Pre serve, 2-Dose Series ([employer]) 01/08/2021,12/18/2020 COVID-19, LNP-s, No Preserve , Navarro-sucrose, Ages 12+ (Pfizer) 2022,10/01/2021 Pneumococcal Conjugate Vacci ne, 20-valent ([id number]) 03/12/2022 Pneumococcal Polysaccharide PPV23 (Pneumovax) 08/22/2009,06/15/2006 Seasonal [...] have money to get more. Sometimes true 02/2023 Sex Assigned at Date Recorded Female 11/07/2019 2:[address] Job Start Date Occupation Industry Not on file Not on file Not on file documented as of this encounter Miscellaneous Notes * Telephone Encounter - Galdino Andujar DO - 11/25/2022 10:29 AM EST Ref # - [id number]. Please review for expedited - patient has been without medication for 1 week. Tramadol: indicated for patient's chronic pain due to lumbar rediculopathy and spinal stenosis. Patient has been controlled on oxycodone-acetaminophen but we are working to de-escalate her therapy. Patient is being switched from oxycodone-acetaminophen to the tramadol. Clonazepam: Patient is taking this for anxiety and has been well managed with this dose for 2 years. I am aware that patient is taking both an opioid and a benzodiazepine and both are medically necessary currently as we work to get her pain and anxiety under control. Galdino Andujar DO * Telephone Encounter - Frances Valle Henny Duong [facility] - 11/25/2022 10:16 AM EST Received fax from [facility] and call from Salena Jones 10:27 AM - Dr. Andujar, please include following in a note in this TE. Ref # - [id number]. Please review for expedited - patient has been without medication for 1 week. Tramadol: indicated for patient's chronic pain due to lumbar rediculopathy and spinal stenosis. Patient has been controlled on oxycodone-acetaminophen but we are working to de-escalate her therapy. Patient is being switched from oxycodone-acetaminophen to the tramadol. Clonazepam: Patient is taking this for anxiety and has been well managed with this dose for 2 years. I am aware that patient is taking both an opioid and a benzodiazepine and both are medically necessary currently as we work to get her pain and anxiety under control. * Telephone Encounter - Chasity Del Toro LPN - 11/24/2022 1:49 PM EST Feng from [facility] called, stating again that this was denied. She is faxing over a rationale to the office. EOC#: [id number] * Telephone Encounter - Shira Gross LPN - 11/24/2022 1:08 PM EST Please addend note regarding tramadol, advised dairy supplies sales representative that tramadol is replacing the hydrocodone. She states medication was denied and appeal will need to be made. Please addend last note with supporting documentation for tramadol. Will then fax to [phone] Att: [facility] Thank you documented in this encounter Plan of Treatment Upcoming Encounters Date Type Specialty Care Team Description 11/29/2022 Office Visit Family Medicine Galdino Andujar, [address] [place] [address] 12/06/2022 Telemedicine [facility], Pharmacist [address] [place] [address] 12/24/2022 [facility] Visit [facility]-C [facility] [place] [address] 12/28/2022 Office Visit Nephrology Erik Lenz MD [address] [place] [address] 01/18/2023 Home Visit [facility] Brooke Jose RN 132 [facility] [place] [address] 01/19/2023 PulmDiagnostic Pulmonary Function [facility], Pft [address] [facility] [place] [address] 08/08/2023 Nurse Only [employer]illary [employer], Nurse Annual Wellness Visit [address] [place] [address] Scheduled Procedures Name Priority Associated Diagnoses Date/Ti me COLONOSCOPY FLEXIBLE PROXIMAL DIAGNOSTIC Recall Colon cancer screening Health Maintenance Due Date Last Done Comments Cologuard: Ages 45-75 2000 FOBT: Ages 45-75 2000 Sigmoidoscopy: Ages 45-75 2000 COVID-19 Vaccine (5 - Booster for Pfizer series) 06/08/2022 2022, 10/01/2021, 01/08/2021, Additional history exists CKD PHOS USE SMARTSET 01056 01/07/202312/25, 03/12/2021, 11/17/2020, Additional history exists Mammogram 02/11/2023 02/11/2022, 01/0 02/2021, 07/10/2019, Additional history exists GFR - Renal Function 05/01/2023 11/01/2022, 09/13/2022, 08/13/2022, Additional history exists HgA1C 05/01/2023 11/01/2022, 04/26, 01/07/2022, Additional history exists DIABETES-EYE EXAM 05/24/2023 05/24/2022, , 04/07/2020, Additional history exists Albumin/Creatinine Ratio 11/01/2023 023, 01/07/2022, 05/24/2019, Additional history exists CKD HGB USE SMARTSET 49793 11/01/202311/01, 11/01/2022, 06/29/2022, Additional history exists DIABETES-FOOT EXAM 11/01/2023 11/01/2022, 0 01/07/2022, 01/14/2021, Additional history exists Depression Screening, Annual for Pts 12 and Over 11/01/2023 11/01/2022, 06/12/2018 TSH FOR THYROID MEDICATION MONITORING YEARLY 11/01/2023 11/01/2022, 01/07/2022, 12/25/2020, Additional history exists Colonoscopy: Ages 45-75 02/17/2026 02/18/20 16, 01/28/2006, [...] Documents on File Type Date Recorded Patient Section 8 Property Manager Expl anation POLST 03/19/2020 4:25 PM [...] the patient have Health Care Power of Rapier Insertion Loom Fixer? No Healthcare Agents on File Name Relationship Healthcare Agent Relationship Communication Galdino Camp Other - (no specific identity) Health Care Power of Rapier Insertion Loom Fixer Princess Allen Other - (no specific identity) Health Care Power of Rapier Insertion Loom Fixer Care Teams Trim Mechanic Relationship Specialty Start Date End Date Galdino Andujar, DO [address] [place] [address] PCP - General Internal Medicine 01/07/22 documented as of this encounter
--- OUTSIDE RECORDS SUMMARY | 2023-06-01 04:17 | External Medical Summary | Summary of Care ---
Author Name Unknown Organization [facility] Address [address] [place] [address] Phone [phone] Care Team Providers Care Senior Firewall Engineer Name Role Phone Galdino Andujar DO Primary Care Provider [phone] Reason for Visit * Reason Comments Follow Up Encounter Details Date Type Department Care Team Description 12/08/2022 Office Visit Family Practice [address] [place] [address] Galdino Andujar DO [address] [place] [address] Carotid stenosis, non-symptomatic, right*; Type 2 diabetes mellitus with stage 3b chronic kidney disease, with long-term current use of insulin ([facility]); Postsurgical hypothyroidism; 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 3b chronic kidney disease ([facility]); Morbid obesity with BMI of 50.0-59.9, adult ([facility]); Kensett filter in place; Recurrent deep vein thrombosis (DVT) of both lower extremities ([facility]); ILD (interstitial lung disease) ([facility]); Moderate episode of recurrent major depressive disorder ([facility]); Dyslipidemia; Statin intolerance; Fibromyalgia; Restless legs syndrome; Heparin 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); Atherosclerosis of [place] coronary artery of [place] heart without angina pectoris Allergies Active Allergy Reactions Severity Noted Date [...] as of this encounter (statuses as of 12/08/2022) Medications Medication Sig Dispensed Refills Start Date End Date Status ONETOUCH DELICA LANCETS 33G MISC Check blood sugars 3-4 times daily 180 Each 5 08/01/2018 Active oxygen GASIndications:ELISSA (obstructive sleep apnea) Use 3 L/min(Oxygen) as directed continuous. 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:Director Child zahra diastolic congestive heart failure (HCC) If [...] with hemoglobin A1c goal of 7.0%-8.0% ([facility]) INJECT 60 UNITS UNDER THE SKIN [...] with hemoglobin A1c goal of 7.0%-8.0% ([facility]) Inject 40-45 units with meals + sliding [...] as of this encounter (statuses as of 12/08/2022) Active Problems Problem Noted Date Type 2 [...] 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/31/2021 Atherosclerosis of [place] coronary arter 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 12/31/2021 [...] percocet BID prn. Abnormality of gait 02/02/[address] 08/19/2014 History of pulmonary [...] as of this encounter (statuses as of 12/08/2022) Resolved Problems Problem Noted Date Resolved Date [...] as of this encounter (statuses as of 12/08/2022) Immunizations Name Administration Dates Next Due COVID-19 mRNA, LNP-s, No Pre serve, 2-Dose Series (Pfizer) 01/08/2021,12/18/2020 COVID-19, LNP-s, No Preserve , Navarro-sucrose, Ages 12+ (Pfizer) 2022,10/01/2021 Pneumococcal Conjugate Vacci ne, 20-valent ([id number]) 03/12/2022 Pneumococcal Polysaccharide PPV23 (Pneumovax) 08/22/2009,06/15/2006 Seasonal [...] Sign Reading Time Taken Comments Blood Pressure 116/70 12/08/2022 2:34 PM EDT Pulse 94 12/08/2022 2:34 PM EDT Temperature 36.7 C (98 F) 12/08/2022 2:3 4 PM EDT Respiratory Rate 15 12/08/2022 2:34 PM EDT Oxygen Saturation 98% 12/08/2022 2:3 4 PM EDT with 3 LPM Inhaled Oxygen Concentration - - Weight 143.5 kg (316 lb 4.8 oz) 023 2:34 PM EDT Height 165.1 cm (5' 5") 12/08/2022 2:34 PM EDT Body Mass Index 52.64 12/08/2022 2:34 PM EDT documented in this encounter Progress Notes * Galdino Andujar, DO - 12/08/2022 3:37 PM EDT SUBJECTIVE: Stephanie Camp is a [...] dysfunction that is seen for follow up. Patient had follow up Carotid Doppler on 12/06/2022. Right internal carotid stenosis has worsened and is 80-99 %. Patient scheduled for CTA of the neck by vascular. Weight is up. Chronic shortness of breath is stable. No chest pain is present.Leg swelling is stable. Pain is controlled currently. Patient Active Problem List Diagnosis Code Dyslipidemia E78.5 Postsurgical hypothyroidism E89.0 ELISSA (obstructive sleep apnea) G47.33 Venous insufficiency I87.2 Essential hypertension with goal blood pressure less than 140/90 I10 History of pulmonary embolus (PE) Z86.711 Statin intolerance Z78.[address] Z95.828 Fibromyalgia M79.7 Abnormality of gait R26.9 Restless legs syndrome G25.81 Gastroesophageal reflux disease with esophagitis K21.00 Morbid obesity with BMI of 50.0-59.9, adult (HCC) E66.01, Z68.43 Controlled substance agreement signed Z79.899 Chronic diastolic congestive heart failure ([facility]) I50.32 Lumbar radiculopathy M54.16 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 [id number] chronic kidney disease ([facility]) I13.0, I50.32, N18.32 Hyperparathyroidism, secondary renal ([facility]) N25.81 Vasculitis ([facility]) I77.6 Primary osteoarthritis of left knee M17.12 Spinal stenosis of lumbar region without neurogenic claudication M48.061 Heparin 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) D75.829 Atherosclerosis of [place] coronary arter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 I25.10 Carotid artery stenosis, asymptomatic, right I65.21 Encounter for long-term (current) use of other medications Z79.899 Type 2 diabetes mellitus with stage 3b chronic kidney disease ([facility]) E11.22, N18.32 Type 2 diabetes mellitus with hemoglobin A1c goal of less than 8.0% ([facility]) E11.9 Recurrent deep vein thrombosis (DVT) of both lower extremities ([facility]) I82.403 Chronic hypoxemic respiratory failure ([facility]) J96.11 Chronic kidney disease, stage 3b ([facility]) N18.32 ILD (interstitial lung disease) ([facility]) J84.9 Moderate episode of recurrent major depressive disorder ([facility]) F33.1 Primary osteoarthritis of both knees M17.0 Type 2 diabetes mellitus with stage 3b chronic kidney disease, with long- term current use of insulin ([facility]) E11.22, N18.32, Z79.4 Anxiety state F41.1 Sacroiliitis, not elsewhere classified ([facility]) M46.1 Current Outpatient Medications Medication Sig Dispense Refill oxygen GAS Use 3 L/min(Oxygen) as directed continuous. Acetaminophen 500 MG Oral Tablet Take 1 Tablet by mouth every 6 hours as needed. CPAP every night at bedtime. Trulicity 4.5 MG/0.5ML Subcutaneous Solution Pen-injector (Dulaglutide) Inject 1 pen under the skin weekly 6 mL 5 Tresiba FlexTouch 100 UNIT/ML Subcutaneous Solution Pen-injector (Insulin Degludec) INJECT 60 UNITS UNDER THE SKIN EVERY MORNING (Patient taking differently: INJECT 56 UNITS UNDER THE SKIN IN THEEVENING) 60 mL 3 Apixaban 5 MG Oral Tablet (Eliquis) Take 1 Tablet (5 mg) by mouth in the morning and 1 Tablet (5 mg) before bedtime. 60 Tablet 5 Cholecalciferol 25 MCG (1000 UT) Oral Capsule Take 1 Capsule (1,000 Units) by mouth in the morning. 30 Capsule 5 DULoxetine HCl 60 MG Oral Capsule Delayed Release Particles (Cymbalta) Take 1 Capsule (60 mg) by mouth in the morning. Take 1 capsule daily. 30 Capsule 5 Magnesium Oxide 400 MG Oral Capsule Take 1 Capsule (400 mg) by mouth in the morning and 1 Capsule (400 mg) before bedtime. 60 Capsule 5 metFORMIN HCl ER 500 MG [...] for Nausea. 90 Tablet 6 Levothyroxine Sodium 50 MCG Oral Tablet (Levoxyl) TAKE 1 TABLET BY MOUTH DAILY AT LEAST 30 MINUTES PRIOR TO FIRST MEAL OF THE DAY OR OTHER MEDICATIONS 100 Tablet 1 Levothyroxine Sodium 200 MCG Oral Tablet (Levoxyl) [...] MORNING AND AT BEDTIME 60 Tablet 0 Baclofen 5 MG Oral Tablet (Lioresal) TAKE 1 TABLET BY MOUTH TWICE DAILY NEEDED FOR MUSCLE SPASMS 60 Tablet 1 traMADol HCl 50 MG Oral Tablet (Ultram) [...] to test BG values 1 Kit 0 BD Pen Needle Short U/F 31G X 8 MM (Insulin Pen Needle) use five times daily 500 Each 3 OneTouch Ultra Blue In Vitro Strip (Glucose Blood) Check sugars 3-4 times daily, E11.9 400 Strip 3 No current facility-administered medications for this visit. The patient's medication list was reviewed and updated as needed. Past Medical History: Diagnosis Date ELSIE (acute kidney injury) ([facility]) 06/12/2018 Allergic rhinitis due to other allergen Chronic hypoxemic respiratory failure ([facility]) 01/07/2022 Diverticulosis of colon 01/28/2006 Essential hypertension with goal blood pressure less than 140/90 02/22/2014 ELLIE (generalized anxiety disorder) 09/13/2009 [address] filter in place 08/19/2014 Heparin-induced thrombocytopenia 08/22/2009 History of pulmonary embolus (PE) 07/16/2014 HTN, goal below 140/90 Impetigo 09/27/2018 Obesity, BMI not known Perforation of intestine ([facility]) 1996 COLON -- 1996 Pneumonia in aspergillosis(484.6) 09/14/2009 Recurrent deep vein thrombosis (DVT) of both lower extremities ([facility]) 01/07/2022 Sleep apnea, obstructive Spinal stenosis of lumbar region without neurogenic claudication 07/15/2020 Spontaneous pneumothorax 09/14/2009 Statin intolerance 07/16/2014 Type 2 diabetes mellitus with hemoglobin A1c goal of less than 8.0% ([facility]) 01/07/2022 Past Surgical History: Procedure Laterality Date ARTHROPLASTY KNEE TOTAL Right 07/24/14 R COLONOSCOPY, DIAGNOSTIC (RECTUM) 02/18/2016 normal, repeat 10 yrs/[facility] COLONOSCOPY, GI REFERRAL OP 01/28/06 diverticulosis--repeat 10 years INCISION OF [place], PLANNED 06/03/2011 TRACHEOSTOMY PLANNED performed by DANNY HOLDER at [place] [facility] [place] INJECT DX/THER SUBSTANCE INTERLAMINAR LUMBAR/SACRAL W IMAGE GUIDE 05/26/2020 INJECTION SPINE LUMBAR OR SACRAL performed by Raj Ahn DO at OR [facility] INJECT DX/THER SUBSTANCE INTERLAMINAR LUMBAR/SACRAL W IMAGE GUIDE 05/14/2021 INJECTION SPINE LUMBAR OR SACRAL performed by Raj Ahn DO at OR [facility] INJECT DX/THER SUBSTANCE INTERLAMINAR LUMBAR/SACRAL W IMAGE GUIDE 08/13/2021 INJECTION SPINE LUMBAR OR SACRAL performed by Raj Ahn DO at OR [facility] KNEE ARTHROSCOPY/DEBRIDEMENT 07/[address] PERMANENT GASTROSTOMY TUBE 09/06/09 GASTROSTOMY WITH CONSTUCTION GASTRIC TUBE performed by AMADOU NUNEZ at [facility] REMOVAL OF THYROID GLAND 06/15/2011 THYROIDECTOMY INCLUDING SUBSTERNAL THYROID CERVICAL APPROACH performed by DANNY HOLDER at OR [facility] [place] REMOVE GALLBLADDER 09/06/09 CHOLECYSTECTOMY performed by AMADOU NUNEZ at OR [facility] [place] REPAIR RECURRENT INCISIONAL HERNIA 1998 REVISION OF COLOSTOMY, SIMPLE 1997 SACROILIAC JOINT INJECT W/GUIDANCE 07/28/2020 INJECTION SACROILIAC JOINT performed by Raj Ahn DO at OR [facility] SACROILIAC JOINT INJECT W/GUIDANCE 03/03/2022 INJECTION SACROILIAC JOINT performed by Raj Ahn DO at OR [facility] SUTURE, LARGE INTESTINE W/COLOSTOMY 1996 perforation R colon with colostomy VENA CAVA FILTER/LIGATION/CLIP 08/19/09 Kensett filter placement through the right femoral 08/19/[address] Lerma at [facility] Review of patient's allergies indicates: [...] Positive for fatigue. Negative for appetite change, fever and unexpected weight change. HENT: Negative for congestion, sore throat and trouble swallowing. Respiratory: Positive for shortness of breath. Negative for cough and wheezing. Cardiovascular: Positive for leg swelling. Negative for chest pain and palpitations. Gastrointestinal: Negative for abdominal pain, blood in stool, constipation, diarrhea, nausea and vomiting. Genitourinary: Negative for dysuria and hematuria. Musculoskeletal: Positive for back pain, gait problem and myalgias. Neurological: Negative for dizziness, syncope and headaches. Psychiatric/Behavioral: Negative for confusion, decreased concentration and sleep disturbance. OBJECTIVE: BP 116/70 | Pulse 94 | Temp 36.7 C (98 F) (Tympanic) | Resp 15 | Ht 1.651 m (5' 5") | Wt (!) 143.5 kg (316 lb 4.8 oz) | LMP 03/11/2003 | SpO2 98% Comment: with 3 LPM | BMI 52.64 kg/m | BSA 2.57m Physical Exam Vitals and nursing note reviewed. [...] Edema present. Left lower leg: Edema present. Comments: Leg edema is stable Neurological: Mental Status: She is alert. Mental status is at baseline. Motor: No weakness. Gait: Gait abnormal. Psychiatric: Mood and Affect: Mood normal. Behavior: Behavior normal. PLAN AND ASSESSMENT: Carotid stenosis, non-symptomatic, right (Primary) - BUN; Future; Expected date: 12/08/2022 - CREATININE; Future; Expected date: 12/08/2022 - BUN - CREATININE CTA scheduled Metformin will be held day of CTA and for two days post CTA Patient is scheduled for IV hydration before and after imaging per Vascular Will need to be cautious with amount of hydration due to CHF Type 2 diabetes mellitus with stage 3b chronic kidney disease, with long-term current use of insulin (HCC) - BUN; Future; Expected date: 12/08/2022 - CREATININE; Future; Expected date: 12/08/2022 - BUN - CREATININE Hold metformin day of procedure and two days post procedure Continue Trulicity, Novolog, and Trisiba Postsurgical hypothyroidism Continue Levothyroxine 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 3b chronic kidney disease (HCC) Continue Furosemide Morbid obesity with BMI of 50.0-59.9, adult (HCC) Continue Trulicity Frank filter in place Recurrent deep vein thrombosis (DVT) of both lower extremities (HCC) Continue Apixaban ILD (interstitial lung disease) (HCC) Moderate episode of recurrent major depressive disorder (HCC) Continue Duloxetine Dyslipidemia Statin intolerance Fibromyalgia Restless legs syndrome Heparin 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) Atherosclerosis of [place] coronary artery of [place] heart without angina pectoris Follow Up: Return if symptoms worsen or fail to improve. Galdino Andujar DO 3:37 PM 12/08/2022 documented in this encounter Nursing Notes * Shira Gross LPN - 12/08/2022 2:31 PM EDT Was advised to have carotid surgery. Surgical date has not been set. Is having a ct scan for evaluation Fax lab report to sandy Quiros with [facility] [phone] documented in this encounter Plan of Treatment Upcoming Encounters Date Type Specialty Care Team Description 12/24/2022 Home Visit [facility] Simi Martinez PA-C [address] [place] [address] 12/28/2022 Office Visit NephErik Valiente MD [address] [place] [address] 01/18/2023 Home Visit [facility] Brooke Jose, RN [address] [place] [address] 01/19/2023 [facility] [address] [facility] [address] 02/11/2023 Office Visit Family Medicine Galdino Andujar DO [address] [facility] [place] [address] 08/08/2023 Nurse Only [facility], Nurse Annual Wellness Visit [address] [facility] [address] [place] [address] Scheduled Orders Name Type Priority Associated Diagnoses Orde r Schedule BUN Lab Routine Carotid stenosis, non-symptomatic, right Type 2 diabetes mellitus with stage 3b chronic kidney disease, with long-term current use of insulin (HCC) Expected: 12/08/2022 (Approximate), Expires: 12/08/2023 CREATININE Lab Routine Carotid stenosis, non-symptomatic, right Type 2 diabetes mellitus with stage 3b chronic kidney disease, with long-term current use of insulin (HCC) Expected: 12/08/2022 (Approximate), Expires: 12/08/2023 Scheduled Procedures Name Priority Associated Diagnoses Date/Ti me COLONOSCOPY FLEXIBLE PROXIMAL DIAGNOSTIC Recall Colon cancer screening Health Maintenance Due Date Last Done Comments Cologuard: Ages 45-75 2000 FOBT: Ages 45-75 2000 Sigmoidoscopy: Ages 45-75 2000 COVID-19 Vaccine (5 - Booster for Pfizer series) 06/08/2022 2022, 10/01/2021, 01/08/2021, Additional history exists CKD PHOS USE SMARTSET 61408 01/07/2023 0412/2021, 03/12/2021, 11/17/2020, Additional history exists Mammogram 02/11/2023 02/11/2022, 01/0 02/2021, 07/10/2019, Additional history exists GFR - Renal Function 05/01/2023 11/01/2022, 09/13/2022, 08/13/2022, Additional history exists HgA1C 05/01/2023 11/01/2022, 04/26, 01/07/2022, Additional history exists DIABETES-EYE EXAM 05/24/2023 05/24/2022, , 04/07/2020, Additional history exists Albumin/Creatinine Ratio 11/01/2023 023, 01/07/2022, 05/24/2019, Additional history exists CKD HGB USE SMARTSET 65811 11/01/202311/01, 11/01/2022, 06/29/2022, Additional history exists DIABETES-FOOT EXAM 11/01/2023 11/01/2022, 0 01/07/2022, 01/14/2021, Additional history exists TSH FOR THYROID MEDICATION MONITORING YEARLY 11/01/2023 11/01/2022, 01/07/2022, 12/25/2020, Additional history exists Depression Screening, Annual for Pts 12 and Over 11/30/2023 11/29/2022, 06/12/2018 Colonoscopy: Ages 45-75 02/17/2026 02/18/20 16, [...] as of this encounter Visit Diagnoses Diagnosis Carotid stenosis, non-symptomatic, right- Primary Type 2 diabetes mellitus with stage 3b chronic kidney disease, with long-term current use of insulin (HCC) Postsurgical hypothyroidism 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 3b chronic kidney disease (HCC) Morbid obesity with BMI of 50.0-59.9, adult (HCC) Morbid obesity Kensett filter in place Other postprocedural status Recurrent deep vein thrombosis (DVT) of both lower extremities (HCC) ILD (interstitial lung disease) (HCC) Postinflammatory pulmonary fibrosis Moderate episode of recurrent major depressive disorder (HCC) Dyslipidemia Other and unspecified hyperlipidemia Statin intolerance Other drug allergy Fibromyalgia Mylagia and myositis, unspecified Restless legs syndrome Restless legs syndrome (RLS) Heparin 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) 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) Atherosclerosis of [place] coronary artery of [place] heart without angina pectoris documented in this encounter Advance Directives Documents on File Type Date Recorded Patient Monorail Hooker Expl anation POLST 03/19/2020 4:25 PM POLST [...] the patient have Health Care Power of Agricultural Engineering Technologist? No Healthcare Agents on File Name Relationship Healthcare Agent Relationship Communication Galdino Camp Other - (no specific identity) Health Care Power of Agricultural Engineering Technologist Princess Allen Other - (no specific identity) Health Care Power of Agricultural Engineering Technologist Care Teams Senior Firewall Engineer Relationship Specialty Start Date End Date Galdino Andujar, [address] [place] [address] PCP - General Internal Medicine 01/07/22 documented as of this encounter
--- OUTSIDE RECORDS SUMMARY | 2023-06-01 04:17 | External Medical Summary ---
Author Name Unknown Address Unknown Organization [id number][place] [place] [address] [place] [address] Laboratory Report Ordering Provider Test Date Status JAG SHULTZ 11/29/2022 12:08:47 Final Observation Date Value Abnormality Reference (Units) Status METHODOLOGY 11/29/2022 12:08:47 LC-MS/MS Final Alpha hydroxyalprazolam cutoff [Mass/volume] in Urine for Confirmatory method 11/29/2022 12:08:47 Negative Negative Final 7-Aminoclonazepam [Mass/volume] in Urine by Confirmatory method 11/29/2022 12:08:47 >20 Above high normal Negative (ng/mL) Final Nordiazepam cutoff [Mass/volume] in Urine for Confirmatory method 11/29/2022 12:08:47 Negative Negative Final Oxazepam cutoff [Mass/volume] in Urine for Confirmatory method 11/29/2022 12:08:47 Negative Negative Final Temazepam cutoff [Mass/volume] in Urine for Confirmatory method 11/29/2022 12:08:47 Negative Negative Final LORazepam cutoff [Mass/volume] in Urine for Confirmatory method 11/29/2022 12:08:47 Negative Negative Final Performing Location [facility] [place] [address] [place] [address]
--- OUTSIDE RECORDS SUMMARY | 2023-06-01 04:17 | External Medical Summary ---
Author Name Unknown Address Unknown Organization [id number]:[facility] - [address] [facility] [address] Laboratory Report Ordering Provider Test Date Status JAG SHULTZ 11/29/2022 12:08:47 Final Observation Date Value Abnormality Reference (Units) Status COMPLIANCE INTERPRETATION 11/29/2022 12:08:47 Based on the medication information provided: Final COMPLIANCE INTERPRETATION 11/29/2022 12:08:47 The presence of tramadol and o-desmethyltramado l is CONSISTENT with tramadol use. Final COMPLIANCE INTERPRETATION 11/29/2022 12:08:47 The presence of 7-aminoclonazepam is CONSISTENT with clonazepam use. Final Performing Location LABORATORY [facility] - [address] [place] [address]
--- OUTSIDE RECORDS SUMMARY | 2023-06-01 04:17 | External Medical Summary ---
Author Name Unknown Address Unknown Organization [id number]:[facility] [place] [address] [place] [address] Laboratory Report Ordering Provider Test Date Status JAG SHULTZ 11/29/2022 12:08:47 Final Observation Date Value Abnormality Reference (Units ) Status METHODOLOGY 11/29/2022 12:08:47 LC-MS/MS Final traMADol [Mass/volume] in Urine by Confirmatory method 11/29/2022 12:08:47 >4000 Above high normal Negative (ng/mL) Final O-nortramadol [Mass/volume] in Urine by Confirmatory method 11/29/2022 12:08:47 >50 Above high normal Negative (ng/mL) Final Performing Location [facility] [place] - [address] [place] [address]
--- OUTSIDE RECORDS SUMMARY | 2023-06-01 04:17 | External Medical Summary | Summary of Care ---
Author Name Unknown Organization [facility] Address [address] [place] [address] Phone [phone] Care Team Providers Care Deoiling Machine Operator Name Role Phone Galdino Andujar DO Primary Care Provider [phone] Reason for Visit * Reason Onset Date Comments Appointment 11/29/2022 Audiology Encounter Details Date Type Department Care Team Description 11/29/2022 Telephone Family Practice [address] [facility], [place] [address] [place] [address] Galdino Andujar DO [address] [place] [address] Appointment (Audiology) Allergies Active Allergy Reactions Severity Noted Date [...] as of this encounter (statuses as of 12/01/2022) Medications Medication Sig Dispensed Refills Start Date End Date Status ONETOUCH DELICA LANCETS 33G MISC Check blood sugars 3-4 times daily 180 Each 5 08/01/2018 Active oxygen GASIndications:ELISSA (obstructive sleep apnea) Use 3 L/min(Oxygen) as directed continuous. 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:[employer] Professor zahra diastolic congestive heart failure (HCC) [...] of 7.0%-8.0% ([facility]) INJECT 60 UNITS UNDER THE SKIN [...] as of this encounter (statuses as of 12/01/2022) Active Problems Problem Noted Date Food insecurity 11/08/2022 Overview: Per [facility] Protocol Type 2 diabetes mellitus wit [...] 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/31/2021 Atherosclerosis of [place] coronary arter 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 12/31/2021 [...] percocet BID prn. Abnormality of gait 02/02/[address] [address] 08/19/2014 History of pulmonary [...] as of this encounter (statuses as of 12/01/2022) Resolved Problems Problem Noted Date Resolved Date [...] as of this encounter (statuses as of 12/01/2022) Immunizations Name Administration Dates Next Due COVID-19 mRNA, LNP-s, No Pre serve, 2-Dose Series ([employer]) 01/08/2021,12/18/2020 COVID-19, LNP-s, No Preserve , Navarro-sucrose, Ages 12+ (Pfizer) 2022,10/01/2021 Pneumococcal Conjugate Vacci ne, 20-valent ([id number]) 03/12/2022 Pneumococcal Polysaccharide PPV23 (Pneumovax) 08/22/2009,06/15/2006 Seasonal [...] got money to buy more. Never true 11/29/2022 Within the past 12 months, t he food you bought just didn't last and you didn't have money to get more. Never true 11/29/2022 Sex Assigned at Date Recorded Female 11/07/2019 2:[address] Job Start Date Occupation Industry Not on file Not on file Not on file documented as of this encounter Miscellaneous Notes * Telephone Encounter - ELISSA Snider - 11/29/2022 12:13 PM EST Needs an appt with audiology Wants jonathan calix Tinnitus of both ears [H93.13] Please call with date and time documented in this encounter Plan of Treatment Upcoming Encounters Date Type Specialty Care Team Description 12/06/2022 Telemedicine [facility], Pharmacist [address] [place] [address] 12/24/2022 Home Visit [facility] Simi Martinez PA-C [address] [place] [address] 12/28/2022 Office Visit Nephrology Erik Lenz MD [address] [place] [address] 01/18/2023 Home Visit [facility] Brooke Jose, RN 132 [place] [address] 01/19/2023 PulmDiagnostic Pulmonary Function [facility], Pft 132 [facility] [place] [address] 02/11/2023 Office Visit Family Medicine Galdino Andujar, DO 293 [facility] [place] [address] 08/08/2023 Nurse Only [facility] [place], Nurse Annual Wellness Visit [address] [facility] [address] [place] [address] Scheduled Procedures Name Priority Associated Diagnoses Date/Ti me COLONOSCOPY FLEXIBLE PROXIMAL DIAGNOSTIC Recall Colon cancer screening Health Maintenance Due Date Last Done Comments Cologuard: Ages 45-75 2000 FOBT: Ages 45-75 2000 Sigmoidoscopy: Ages 45-75 2000 COVID-19 Vaccine (5 - Booster for Pfizer series) 06/08/2022 2022, 10/01/2021, 01/08/2021, Additional history exists CKD PHOS USE SMARTSET 95353 01/07/202312/25, 03/12/2021, 11/17/2020, Additional history exists Mammogram 02/11/2023 02/11/2022, 0 02/2021, 07/10/2019, Additional history exists GFR - Renal Function 05/01/2023 11/01/2022, 09/13/2022, 08/13/2022, Additional history exists HgA1C 05/01/2023 11/01/2022, 04/26, 01/07/2022, Additional history exists DIABETES-EYE EXAM 05/24/2023 05/24/2022, , 04/07/2020, Additional history exists Albumin/Creatinine Ratio 11/01/2023 023, 01/07/2022, 05/24/2019, Additional history exists CKD HGB USE SMARTSET 90598 11/01/202311/01, 11/01/2022, 06/29/2022, Additional history exists DIABETES-FOOT [...] Documents on File Type Date Recorded Patient Spa Associate Expl anation POLST 03/19/2020 4:25 PM [...] the patient have Health Care Power of Mapping Technician? No Healthcare Agents on File Name Relationship Healthcare Agent Relationship Communication Galdino Camp Other - (no specific identity) Health Care Power of Mapping Technician Princess Allen Other - (no specific identity) Health Care Power of Mapping Technician Care Teams Deoiling Machine Operator Relationship Specialty Start Date End Date Galdino Andujar, DO [address] [facility] [place] [address] PCP - General Internal Medicine 01/07/22 documented as of this encounter
--- OUTSIDE RECORDS SUMMARY | 2023-06-01 04:17 | External Medical Summary | Summary of Care ---
Author Name Unknown Organization [facility] Address [address] [place] [address] Phone [phone] Care Team Providers Care Mortgage Loan Assistant Name Role Phone Galdino Andujar DO Primary Care Provider [phone] Reason for Referral * Ancillary Services (Within 10 days (routine)) - Authorized Specialty Diagnoses / Procedures Referred By Ethan chao Referred To Contact Audiology Diagnoses Tinnitus of both ears Galdino Andujar DO [address] [place] [address] Referral ID Status Reason Start Date Expiration Date Visits Requested Visits Authorized [id number] Authorized Ancillary Services Required 11/29/2022 999 999 Question Answer Referral Priority Within 10 days (routine) Reason for Referral: Hearing Loss Is this sudden hearing loss? No Reason for Visit * Reason Comments Follow Up Encounter Details Date Type Department Care Team Description 11/29/2022 Office Visit Family Practice [address], [place] [address] [place] [address] Galdino Andujar DO [address] [place] [address] 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 3b chronic kidney disease (HCC)*; Type 2 diabetes mellitus with stage 3b chronic kidney disease, with long-term current use of insulin (HCC); Chronic hypoxemic respiratory failure (HCC); Recurrent deep vein thrombosis (DVT) of both lower extremities (HCC); Frank filter in place; ILD (interstitial lung disease) (HCC); Moderate episode of recurrent major depressive disorder (HCC); Dyslipidemia; Postsurgical hypothyroidism; History of pulmonary embolus (PE); Statin intolerance; Fibromyalgia; Lumbar radiculopathy; Hyperparathyroidism, secondary renal (HCC); Primary osteoarthritis of both knees; Anxiety state; Encounter for therapeutic drug monitoring; Tinnitus of both ears Allergies Active Allergy Reactions [...] as of this encounter (statuses as of 11/30/2022) Medications Medication Sig Dispensed Refills Start Date End Date Status ONETOUCH [place] LANCETS 33G MISC Check blood sugars 3-4 times daily 180 Each 5 08/01/2018 Active oxygen GASIndications:ELISSA (obstructive sleep apnea) Use 3 L/min(Oxygen) as directed continuous. 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:Placement Specialist zahra diastolic congestive heart failure (HCC) [...] as of this encounter (statuses as of 11/30/2022) Active Problems Problem Noted Date Food insecurity 11/08/2022 Overview: Per [facility] Protocol Type [...] 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/31/2021 Atherosclerosis of [place] coronary arter 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 12/31/2021 [...] as of this encounter (statuses as of 11/30/2022) Resolved Problems Problem Noted Date Resolved Date [...] as of this encounter (statuses as of 11/30/2022) Immunizations Name Administration Dates Next Due COVID-19 mRNA, LNP-s, No Pre serve, 2-Dose Series (Pfizer) 01/08/2021,12/18/2020 COVID-19, LNP-s, No Preserve , Navarro-sucrose, Ages 12+ (Pfizer) 2022,10/01/2021 Pneumococcal Conjugate Vacci ne, 20-valent ([id number]) 03/12/2022 Pneumococcal Polysaccharide PPV23 (Pneumovax) 08/22/2009,06/15/2006 Seasonal [...] Sign Reading Time Taken Comments Blood Pressure 108/64 11/29/2022 11:33 AM EST Pulse 88 11/29/2022 11:33 AM EST Temperature 36.1 C (97 F) 11/29/2022 11: 33 AM EST Respiratory Rate 13 11/29/2022 11:3 3 AM EST Oxygen Saturation 94% 11/29/2022 11: 33 AM EST 3 LPM Inhaled Oxygen Concentration - - Weight 143.6 kg (316 lb 9.6 oz) 023 11:33 AM EST Height 165.1 cm (5' 5") 11/29/2022 11:3 3 AM EST Body Mass Index 52.68 11/29/2022 11:33 AM EST documented in this encounter Progress Notes * Galdino Andujar, DO - 11/30/2022 8:07 AM EST SUBJECTIVE: Stephanie Camp is a 67 year [...] dysfunction that is seen for follow up. Weight is up. Chronic shortness of breath is stable. No chest pain is present. Leg swelling is stable. Oxycodone was stopped and Tramadol was started. Pain is controlled currently. Patient Active Problem [...] Morbid obesity with BMI of 50.0-59.9, adult ([facility]) E66.01, Z68.43 Controlled substance agreement signed Z79.899 Chronic diastolic congestive heart failure ([facility]) I50.32 Lumbar radiculopathy M54.16 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 [id number] chronic kidney disease ([facility]) I13.0, I50.32, N18.32 Hyperparathyroidism, secondary renal ([facility]) N25.81 Vasculitis ([facility]) I77.6 Primary osteoarthritis of left knee M17.12 Spinal stenosis of lumbar region without neurogenic claudication M48.061 Heparin 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) D75.829 Atherosclerosis of [place] coronary arter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 I25.10 Carotid artery stenosis, asymptomatic, right I65.21 Encounter for long-term (current) use of other medications Z79.899 Type 2 diabetes mellitus with stage 3b chronic kidney disease ([facility]) E11.22, N18.32 Type 2 diabetes mellitus with hemoglobin A1c goal of less than 8.0% ([facility]) E11.9 Recurrent deep vein thrombosis (DVT) of both lower extremities ([facility]) I82.403 Chronic hypoxemic respiratory failure ([facility]) J96.11 Chronic kidney disease, stage 3b ([facility]) N18.32 ILD (interstitial lung disease) ([facility]) J84.9 Moderate episode of recurrent major depressive disorder ([facility]) F33.1 Primary osteoarthritis of both knees M17.0 Type 2 diabetes mellitus with stage 3b chronic kidney disease, with long- term current use of insulin ([facility]) E11.22, N18.32, Z79.4 Anxiety state F41.1 Sacroiliitis, not elsewhere classified ([facility]) M46.1 Food insecurity Z59.41 Current Outpatient Medications [...] needed for Pain, Severe. 90 Tablet 0 avolutionUCH DELICA LANCETS 33G MISC Check blood sugars [...] to other allergen Chronic hypoxemic respiratory failure (HCC) 01/07/2022 Diverticulosis of colon 01/28/2006 Essential hypertension [...] vein thrombosis (DVT) of both lower extremities ([facility]) 01/07/2022 Sleep apnea, obstructive Spinal stenosis of lumbar region without neurogenic claudication 07/15/2020 Spontaneous pneumothorax 09/14/2009 Statin intolerance 07/16/2014 Type 2 diabetes mellitus with hemoglobin A1c goal of less than 8.0% ([facility]) 01/07/2022 Past Surgical History: Procedure Laterality Date ARTHROPLASTY KNEE TOTAL Right 07/24/14 R COLONOSCOPY, DIAGNOSTIC (RECTUM) 02/18/2016 normal, repeat 10 yrs/[facility] COLONOSCOPY, GI REFERRAL OP 01/28/06 diverticulosis--repeat 10 years INCISION OF [place], PLANNED 06/03/2011 TRACHEOSTOMY PLANNED performed by DANNY HOLDER at OR [facility] [place] [place] INJECT DX/THER SUBSTANCE INTERLAMINAR LUMBAR/SACRAL W IMAGE GUIDE 05/26/2020 INJECTION SPINE LUMBAR OR SACRAL performed by Raj Ahn DO at OR [facility] INJECT DX/THER SUBSTANCE INTERLAMINAR LUMBAR/SACRAL W IMAGE GUIDE 05/14/2021 INJECTION SPINE LUMBAR OR SACRAL performed by Raj Ahn, DO at OR [facility] INJECT DX/THER SUBSTANCE INTERLAMINAR LUMBAR/SACRAL W IMAGE GUIDE 08/13/2021 INJECTION SPINE LUMBAR OR SACRAL performed by Raj Ahn DO at OR [facility] ARTHROSCOPY/DEBRIDEMENT 07/[address] PERMANENT GASTROSTOMY TUBE 09/06/09 GASTROSTOMY WITH CONSTUCTION GASTRIC TUBE performed by AMADOU NUNEZ at OR [facility] [place] [place] REMOVAL OF THYROID GLAND 06/15/2011 THYROIDECTOMY INCLUDING SUBSTERNAL THYROID CERVICAL APPROACH performed by DANNY HOLDER at OR [facility] [place] [place] REMOVE GALLBLADDER 09/06/09 CHOLECYSTECTOMY performed by AMADOU NUNEZ at OR [facility] [place] [place] REPAIR RECURRENT INCISIONAL HERNIA 1998 REVISION OF COLOSTOMY, SIMPLE 1997 SACROILIAC JOINT INJECT W/GUIDANCE 07/28/2020 INJECTION SACROILIAC JOINT performed by Raj Ahn DO at OR [facility] SACROILIAC JOINT INJECT W/GUIDANCE 03/03/2022 INJECTION SACROILIAC JOINT performed by Raj Ahn DO at OR [facility] SUTURE, LARGE INTESTINE W/COLOSTOMY 1996 perforation R colon with colostomy VENA CAVA FILTER/LIGATION/CLIP 08/19/09 Frank filter placement through the right femoral 08/19/[address] Lerma at [facility] Review of patient's allergies indicates: Allergen [...] decreased concentration and sleep disturbance. OBJECTIVE: BP 108/64 | Pulse 88 | Temp 36.1 C (97 F) (Tympanic) | Resp 13 | Ht 1.651 m (5' 5") | Wt (!) 143.6 kg (316 lb 9.6 oz) | LMP 03/11/2003 | SpO2 94% Comment: 3 LPM | BMI 52.68 kg/m | BSA 2.57 m Physical Exam Vitals and nursing note [...] and time. Mental status is at baseline. Gait: Gait abnormal. Psychiatric: Mood and Affect: Mood normal. Behavior: Behavior normal. Thought Content: Thought content normal. PLAN AND ASSESSMENT: 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 3b chronic kidney disease (HCC) (Primary) Continue Furosemide Type 2 diabetes mellitus with stage 3b chronic kidney disease, with long-term current use of insulin (HCC) Continue Trulicity, Metformin, Novolog, and Tresiba Chronic hypoxemic respiratory failure (HCC) Continue Oxygen Recurrent deep vein thrombosis (DVT) of both lower extremities (HCC) Continue Apixaban [place] filter in place ILD (interstitial lung disease) (HCC) Moderate episode of recurrent major depressive disorder (HCC) Continue Duloxetine Dyslipidemia Postsurgical hypothyroidism Continue Levothyroxine History of pulmonary embolus (PE) Statin intolerance Fibromyalgia Continue Duloxetine Lumbar radiculopathy Hyperparathyroidism, secondary renal (HCC) Primary osteoarthritis of both knees Anxiety state Continue Clonazepam Encounter for therapeutic drug monitoring - PAIN MANAGEMENT DRUG PANEL, URINE W/ INTERPRETATION; Future; Expected date: 11/29/2022 - PAIN MANAGEMENT DRUG PANEL, URINE W/ INTERPRETATION Tinnitus of both ears - AUDIOLOGY REFERRAL OP Follow-up: Return in about 2 months (around 01/29/2023), or if symptoms worsen or fail to improve. | Check-out note: Schedule Audiology Galdino Andujar DO 8:07 AM 11/30/2022 documented in this encounter Nursing Notes * Shira Gross LPN - 11/29/2022 11:32 AM EST Here for follow up, complaining of some dizziness. documented in this encounter Miscellaneous Notes * Addendum Note - Anne Torrez MLT - 11/30/2022 2:34 PM ESTAddended by: ANNE TORREZ on: 11/30/2022 02:34 PM Modules accepted: Orders documented in this encounter Plan of Treatment Upcoming Encounters Date Type Specialty Care Team Description 12/06/2022 Telemedicine [facility], Pharmacist [address] [place] [address] 12/24/2022 Home Visit [facility] Simi Martinez PA-C 132 [place] [address] 12/28/2022 Office Visit Nephrology Erik Lenz MD [address] [place] [address] 01/18/2023 Home Visit [facility] Brooke Jose RN 132 [place] [address] 01/19/2023 PulmDiagnostic Pulmonary Function West, Pft 132 [facility] [place] [address] 02/11/2023 Office Visit [facility] Medicine Galdino Andujar DO 293 [facility] [place] [address] 08/08/2023 Nurse Only [facility], Nurse Annual Wellness Visit [address] [place] [address] Pending Results Name Type Priority Associated Diagnoses Date /Time PAIN MANAGEMENT DRUG PANEL, URINE W/ INTERPRETATION Lab Routine Encounter for therapeutic drug monitoring 11/29/2022 12:08 PM EST BENZODIAZEPINES, URINE CONFIRMATION Lab Routine Encounter for therapeutic drug monitoring 11/29/2022 12:08 PM EST TRAMADOL, URINE CONFIRMATION Lab Routine Encounter for therapeutic drug monitoring 11/29/2022 12:08 PM EST Scheduled Orders Name Type Priority Associated Diagnoses Orde r Schedule PAIN MANAGEMENT DRUG PANEL, URINE W/ INTERPRETATION Lab Routine Encounter for therapeutic drug monitoring Expected: 11/29/2022, Expires: 11/30/2023 TRAMADOL, URINE CONFIRMATION Lab Routine Encounter for therapeutic drug monitoring Expected: 11/30/2022, Expires: 12/01/2023 Scheduled Procedures Name Priority Associated Diagnoses Date/Ti me COLONOSCOPY FLEXIBLE PROXIMAL DIAGNOSTIC Recall Colon cancer screening Scheduled Referrals Name Type Priority Associated Diagnoses Orde r Schedule AUDIOLOGY REFERRAL OP Referral Within 10 days (routine) Tinnitus of both ears Ordered: 11/29/2022 Health Maintenance Due Date Last Done Comments Cologuard: Ages 45-75 2000 FOBT: Ages 45-75 2000 Sigmoidoscopy: Ages 45-75 2000 COVID-19 Vaccine (5 - Booster for Pfizer series) 06/08/2022 2022, 10/01/2021, 01/08/2021, Additional history exists CKD PHOS USE SMARTSET 69518 01/07/202312/25, 03/12/2021, 11/17/2020, Additional history exists Mammogram 02/11/2023 02/11/2022, 01/02/2021, 07/10/2019, Additional history exists GFR - Renal Function 05/01/2023 11/01/2022, 09/13/2022, 08/13/2022, Additional history exists HgA1C 05/01/2023 11/01/2022, 04/26, 01/07/2022, Additional history exists DIABETES-EYE EXAM 05/24/2023 05/24/2022, , 04/07/2020, Additional history exists Albumin/Creatinine Ratio 11/01/20232 023, 01/07/2022, 05/24/2019, Additional history exists CKD HGB USE SMARTSET 67031 11/01/202311/01, 11/01/2022, 06/29/2022, Additional history exists DIABETES-FOOT [...] hypoxemic respiratory failure (HCC) Chronic respiratory failure Recurrent deep vein thrombosis (DVT) of both lower extremities (HCC) Frank filter in place Other postprocedural status ILD (interstitial lung disease) (HCC) Postinflammatory pulmonary fibrosis Moderate episode of recurrent major depressive disorder (HCC) Dyslipidemia Other and unspecified hyperlipidemia Postsurgical hypothyroidism History of pulmonary embolus (PE) Personal history of pulmonary embolism Statin intolerance Other drug allergy Fibromyalgia Mylagia and myositis, unspecified Lumbar radiculopathy Thoracic or lumbosacral neuritis or radiculitis, unspecified Hyperparathyroidism, secondary renal (HCC) Secondary hyperparathyroidism (of renal origin) Primary osteoarthritis of both knees Primary localized osteoarthrosis, lower leg Anxiety state Anxiety state, unspecified Encounter for therapeutic drug monitoring Tinnitus of both ears Unspecified tinnitus documented in this encounter Advance Directives Documents on File Type Date Recorded Patient Summer School Coordinator Expl anation POLST 03/19/2020 4:25 PM [...] the patient have Health Care Power of Home Care Nurse? No Healthcare Agents on File Name Relationship Healthcare Agent Relationship Communication Galdino Camp Other - (no specific identity) Health Care Power of Home Care Nurse Princess Other - (no specific identity) Health Care Power of Home Care Nurse Care Teams Mortgage Loan Assistant Relationship Specialty Start Date End Date Galdino Andujar, DO [address] [place] [address] PCP - General Internal Medicine 01/07/22 documented as of this encounter
--- OUTSIDE RECORDS SUMMARY | 2023-06-01 04:17 | External Medical Summary | Summary of Care ---
Author Name Unknown Organization [facility] Address [address] [place] [address] Phone [phone] Care Team Providers Care Four H Agent Name Role Phone Gadlino Andujar DO Primary Care Provider [phone] Reason for Referral * Ancillary Services (Within 10 days (routine)) - Authorized Specialty Diagnoses / Procedures Referred By Ethan chao Referred To Contact Audiology Diagnoses Tinnitus of both ears Galdino Andujar DO [address] [place] [address] Referral ID Status Reason Start Date Expiration Date Visits Requested Visits Authorized [id number] Authorized Ancillary Services Required 11/29/2022 999 999 Question Answer Referral Priority Within 10 days (routine) Reason for Referral: Hearing Loss Is this sudden hearing loss? No Reason for Visit * Reason Comments Follow Up Encounter Details Date Type Department Care Team Description 11/29/2022 Office Visit Family Practice [address] [place] [address] [place] [address] Galdino Andujar DO [address] [place] [address] Hypertensive heart and kidney disease with chronic [...] directed continuous. 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:Manuscripts Curator zahra diastolic congestive heart failure (HCC) If [...] 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/31/2021 Atherosclerosis of platinum coronary arter 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 12/31/2021 [...] (Pfizer) 2022,10/01/2021 Pneumococcal Conjugate Vacci ne, 20-valent ([id number]) 03/12/2022 Pneumococcal Polysaccharide PPV23 (Pneumovax) 08/22/2009,06/15/2006 Seasonal [...] pulmonary embolus (PE) Z86.711 Statin intolerance Z78.[address] Z95.828 Fibromyalgia M79.7 Abnormality of gait R26.9 Restless legs syndrome G25.81 Gastroesophageal reflux disease with esophagitis K21.00 Morbid obesity with BMI of 50.0-59.9, adult ([facility]) E66.01, Z68.43 Controlled substance agreement signed Z79.899 Chronic diastolic congestive heart failure ([facility]) I50.32 Lumbar radiculopathy M54.16 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 nddbr5e chronic kidney disease ([facility]) I13.0, I50.32, N18.32 Hyperparathyroidism, secondary renal ([facility]) N25.81 Vasculitis ([facility]) I77.6 Primary osteoarthritis of left knee M17.12 Spinal stenosis of lumbar region without neurogenic claudication M48.061 Heparin 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) D75.829 Atherosclerosis of platinum coronary arter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 I25.10 Carotid artery stenosis, asymptomatic, right I65.21 Encounter for long-term (current) use of other medications Z79.899 Type 2 diabetes mellitus with stage 3b chronic kidney disease ([facility]) E11.22, N18.32 Type 2 diabetes mellitus with hemoglobin A1c goal of less than 8.0% ([facility]) E11.9 Recurrent deep vein thrombosis (DVT) of both lower extremities ([facility]) I82.403 Chronic hypoxemic respiratory failure ([facility]) J96.11 Chronic kidney disease, stage 3b ([facility]) N18.32 ILD (interstitial lung disease) ([facility]) J84.9 Moderate episode of recurrent major depressive disorder ([facility]) F33.1 Primary osteoarthritis of both knees M17.0 Type 2 diabetes mellitus with stage 3b chronic kidney disease, with long- term current use of insulin ([facility]) E11.22, N18.32, Z79.4 Anxiety state F41.1 Sacroiliitis, not elsewhere classified ([facility]) M46.1 Food insecurity Z59.41 Current Outpatient Medications [...] History: Diagnosis Date ELSIE (acute kidney injury) ([facility]) 06/12/2018 Allergic rhinitis due to other allergen Chronic hypoxemic respiratory failure ([facility]) 01/07/2022 Diverticulosis of colon 01/28/2006 Essential hypertension with goal blood pressure less than 140/90 02/22/2014 ELLIE (generalized anxiety disorder) 09/13/2009 Goiter Scott filter in place 08/19/2014 Heparin-induced thrombocytopenia 08/22/2009 History of pulmonary embolus (PE) 07/16/2014 HTN, goal below 140/90 Impetigo 09/27/2018 Obesity, BMI not known Perforation of intestine (HCC) 1996 COLON -- 1996 Pneumonia in aspergillosis(484.6) 09/14/2009 Recurrent deep vein thrombosis (DVT) of both lower extremities (HCC) 01/07/2022 Sleep apnea, obstructive Spinal stenosis of lumbar region without neurogenic claudication 07/15/2020 Spontaneous pneumothorax 09/14/2009 Statin intolerance 07/16/2014 Type 2 diabetes mellitus with hemoglobin A1c goal of less than 8.0% ([facility]) 01/07/2022 Past Surgical History: Procedure Laterality Date ARTHROPLASTY KNEE TOTAL Right 07/24/14 R COLONOSCOPY, DIAGNOSTIC (RECTUM) 02/18/2016 normal, repeat 10 yrs/[facility] COLONOSCOPY, GI REFERRAL OP 01/28/06 diverticulosis--repeat 10 years INCISION OF WINDPIPE, PLANNED 06/03/2011 TRACHEOSTOMY PLANNED performed by DANNY HOLDER at OR [facility] INJECT DX/THER SUBSTANCE INTERLAMINAR LUMBAR/SACRAL W IMAGE GUIDE 05/26/2020 INJECTION SPINE LUMBAR OR SACRAL performed by Raj Callum Ahn DO at OR [facility] INJECT DX/THER SUBSTANCE INTERLAMINAR LUMBAR/SACRAL W IMAGE GUIDE 05/14/2021 INJECTION SPINE LUMBAR OR SACRAL performed by Raj Ahn DO at OR [facility] INJECT DX/THER SUBSTANCE INTERLAMINAR LUMBAR/SACRAL W IMAGE GUIDE 08/13/2021 INJECTION SPINE LUMBAR OR SACRAL performed by Raj Ahn DO at OR [facility] KNEE ARTHROSCOPY/DEBRIDEMENT 07/[address] PERMANENT GASTROSTOMY TUBE 09/06/09 GASTROSTOMY WITH CONSTUCTION GASTRIC TUBE performed by AMADOU NUNEZ at OR [facility] REMOVAL OF THYROID GLAND 06/15/2011 THYROIDECTOMY INCLUDING SUBSTERNAL THYROID CERVICAL APPROACH performed by DANNY HOLDER at OR [facility] REMOVE GALLBLADDER 09/06/09 CHOLECYSTECTOMY performed by AMADOU NUNEZ at OR [facility] REPAIR RECURRENT INCISIONAL HERNIA 1998 REVISION OF COLOSTOMY, SIMPLE 1998 SACROILIAC JOINT INJECT W/GUIDANCE 07/28/2020 INJECTION SACROILIAC JOINT performed by Raj Ahn, DO at OR [facility] SACROILIAC JOINT INJECT W/GUIDANCE 03/03/2022 INJECTION SACROILIAC JOINT performed by Raj Ahn DO at OR [facility] SUTURE, LARGE INTESTINE W/COLOSTOMY 1996 perforation R colon with colostomy VENA CAVA FILTER/LIGATION/CLIP 08/19/09 Scott filter placement through the right femoral 08/19/[address] Lerma at [facility] Review of patient's allergies indicates: Allergen Reactions [...] of both lower extremities (HCC) Continue Apixaban Frank filter in place ILD (interstitial lung disease) [...] of some dizziness. documented in this encounter Plan of Treatment Upcoming Encounters Date Type Specialty Care Team Description 12/06/2022 Telemedicine [facility], Pharmacist [address] [place] [address] 12/24/2022 Home Visit [facility] Simi Martinez PA-C [address] [place] [address] 12/28/2022 Office Visit Nephrology Erik Lenz MD [address] [facility] [place] [address] 01/18/2023 Home Visit [facility] Brooke Jose, RN [address] [place] [address] 01/19/2023 PulmDiagnostic [facility] [address] 02/11/2023 Office Visit Family Medicine Galdino Andujar, DO [address] [place] [address] 08/08/2023 Nurse Only Ancillary [place], Nurse Annual Wellness Visit [address] [facility] [address] [facility] [place] [address] Pending Results Name Type Priority Associated Diagnoses Date /Time PAIN MANAGEMENT DRUG PANEL, URINE W/ INTERPRETATION Lab Routine Encounter for therapeutic drug monitoring 11/29/2022 12:08 PM EST Scheduled Orders Name Type Priority Associated Diagnoses Orde r Schedule PAIN MANAGEMENT DRUG PANEL, URINE W/ INTERPRETATION Lab Routine Encounter for therapeutic drug monitoring Expected: 11/29/2022, Expires: 11/30/2023 Scheduled Procedures Name Priority Associated Diagnoses Date/Ti nm COLONOSCOPY FLEXIBLE PROXIMAL DIAGNOSTIC Recall Colon cancer [...] Additional history exists CKD PHOS USE SMARTSET 56382 01/07/202312/25, 03/12/2021, 11/17/2020, Additional history exists Mammogram 02/11/2023 02/11/2022, 01/0 02/2021, 07/10/2019, Additional history exists GFR - Renal Function 05/01/2023 11/01/2022, 09/13/2022, 08/13/2022, Additional history exists HgA1C 05/01/2023 11/01/2022, 04/26, 01/07/2022, Additional history exists DIABETES-EYE EXAM 05/24/2023 05/24/2022, , 04/07/2020, Additional history exists Albumin/Creatinine Ratio 11/01/2023 023, 01/07/2022, 05/24/2019, Additional history exists CKD HGB USE SMARTSET 25618 11/01/202311/01, 11/01/2022, 06/29/2022, Additional history exists DIABETES-FOOT [...] thrombosis (DVT) of both lower extremities (HCC) Scott filter in place Other postprocedural status ILD [...] Documents on File Type Date Recorded Patient Machine Pan Greaser Expl anation POLST 03/19/2020 4:25 PM POLST [...] the patient have Health Care Power of Dot Etcher? No Healthcare Agents on File Name Relationship Healthcare Agent Relationship Communication Galdino Camp Other - (no specific identity) Health Care Power of Dot Etcher Princess Allen Other - (no specific identity) Health Care Power of Dot Etcher Care Teams Four H Agent Relationship Specialty Start Date End Date Galdino Andujar, [address] [place] [address] PCP - General Internal Medicine 01/07/22 documented as of this encounter
--- OUTSIDE RECORDS SUMMARY | 2023-06-01 04:17 | External Medical Summary ---
Author Name Unknown Address Unknown Organization K01:LAB[facility]ATORY [facility] - [address] [place] [address] Laboratory Report Ordering Provider Test Date Status JAG SHULTZ 12/08/2022 15:15:50 Final Observation Date Value Abnormality Reference (Units ) Status Creatinine 12/08/2022 15:15:50 1.7 Above high normal 0.5-1.0 (mg/dL) Final Glomerular filtration rate/1.73 sq M.predicted [Volume Rate/Area] in Serum, Plasma or Blood by Creatinine-based formula (CKD-EPI) 12/08/2022 15:15:50 33 Below low normal >=60 (mL/min) Final Performing Location [facility] - [address] [place] [address]
--- OUTSIDE RECORDS SUMMARY | 2023-06-01 04:17 | External Medical Summary | Summary of Care ---
Author Name Unknown Organization [facility] Address [address] [place] [address] Phone [phone] Care Team Providers Care Continuous Dryout Operator Helper Name Role Phone Galdino Andujar DO Primary Care Provider [phone] Reason for Visit * Reason Onset Date Comments Information 12/10/2022 Encounter Details Date Type Department Care Team Description 12/10/2022 Telephone Family Practice [address] [facility] [place] [address] [place] [address] Galdino Andujar DO [address] [place] [address] Information Allergies Active Allergy Reactions [...] directed continuous. 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:Icer Machine Operator zahra diastolic congestive heart failure (HCC) If [...] hemoglobin A1c goal of 7.0%-8.0% ([facility]) INJECT 60 UNITS UNDER THE SKIN [...] thrombocytopenia (HIT) 0 12/31/2021 Atherosclerosis of [place] coronary arter 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 12/31/2021 [...] 11.3 but with significant nocturnal hypoxemia Dickthaddeus Postsurgical hypothyroidism 06/16/2011 Last Assessment & Plan: [...] mRNA, LNP-s, No Pre serve, 2-Dose Series ([employer]) 01/08/2021,12/18/2020 COVID-19, LNP-s, No Preserve , Navarro-sucrose, Ages 12+ (Pfizer) 2022,10/01/2021 Pneumococcal Conjugate Vacci ne, 20-valent ([id number]) 03/12/2022 Pneumococcal Polysaccharide PPV23 (Pneumovax) 08/22/2009,06/15/2006 Seasonal [...] Telephone Encounter - Galdino Andujar DO - 12/13/2022 8:02 AM EDT Noted * Telephone Encounter - Shira De La Rosa RN - 12/10/2022 5:00 PM EDT Call to pt-notified of message below. Told would fax lab results to Dr Tang at [facility] surgery. Pt states they are going to do a MRI instead of CT scan just to be safe. Told I would let Dr Andujar know this. Labs faxed. * Telephone Encounter - Shira De La Rosa RN - 12/10/2022 4:58 PM EDT ----- Message from Galdino Andujar DO sent at 12/10/2022 10:53 AM EDT ----- CKD is stable Send results to Dr. Tang, [facility] office documented in this encounter Plan of Treatment Upcoming Encounters Date Type Specialty Care Team Description 12/24/2022 Home Visit [facility] Simi Martinez PA-C [address] [place] [address] 12/28/2022 Office Visit Nephrology Erik Lenz MD 200 [place] [address] 01/18/2023 Home Visit [facility] Brooke Jose RN [address] [place] [address] 01/19/2023 PulmDiagnostic Pulmonary Function [place], [place] [address] [place] [address] 02/11/2023 Office Visit Family Medicine Galdino Andujar DO [address] [place] [address] 08/08/2023 Nurse Only Ancillary [place], Nurse Annual Wellness Visit [address] [facility] [address] [facility] [place] [address] Scheduled Procedures Name Priority Associated Diagnoses Date/Ti me COLONOSCOPY FLEXIBLE PROXIMAL DIAGNOSTIC Recall Colon cancer screening Health Maintenance Due Date Last Done Comments Cologuard: Ages 45-75 2000 FOBT: Ages 45-75 2000 Sigmoidoscopy: Ages 45-75 2000 COVID-19 Vaccine (5 - Booster for Pfizer series) 06/08/2022 2022, 10/01/2021, 01/08/2021, Additional history exists CKD PHOS USE SMARTSET 54204 01/07/202312/25, 03/12/2021, 11/17/2020, Additional history exists Mammogram 02/11/2023 02/11/2022, 01/0 02/2021, 07/10/2019, Additional history exists HgA1C 05/01/2023 11/01/2022, 04/26, 01/07/2022, Additional history exists DIABETES-EYE EXAM 05/24/2023 05/24/2022, , 04/07/2020, Additional history exists GFR - Renal Function 06/10/2023 12/08/2022, 11/01/2022, 09/13/2022, Additional history exists Albumin/Creatinine Ratio 11/01/2023 023, 01/07/2022, 05/24/2019, Additional history exists CKD HGB USE SMARTSET 20409 11/01/202311/01, 11/01/2022, 06/29/2022, Additional history exists DIABETES-FOOT [...] Documents on File Type Date Recorded Patient Senior Health Educator Expl anation POLST 03/19/2020 4:25 PM POLST [...] the patient have Health Care Power of Assistant Cook? No Healthcare Agents on File Name Relationship Healthcare Agent Relationship Communication Galdino Camp Other - (no specific identity) Health Care Power of Assistant Cook Princessambar Allen Other - (no specific identity) Health Care Power of Assistant Cook Care Teams Continuous Dryout Operator Helper Relationship Specialty Start Date End Date Galdino Andujar, [address] [facility] [place] [address] PCP - General Internal Medicine 01/07/22 documented as of this encounter
--- OUTSIDE RECORDS SUMMARY | 2023-06-01 04:17 | External Medical Summary ---
Author Name Unknown Address Unknown Organization K01:[facility] - [address] [place] [address] Laboratory Report Ordering Provider Test Date Status JAG SHULTZ 12/08/2022 15:15:50 Final Observation Date Value Abnormality Reference (Units ) Status BUN 12/08/2022 15:15:50 25 Above high normal 6- 20 (mg/dL) Final Performing Location [facility] - [address] [place] [address]
--- OUTSIDE RECORDS SUMMARY | 2023-06-01 04:17 | External Medical Summary | Continuity of Care Document ---
Author Name Unknown Organization [place] [address] [address] Address [address] [place] [phone] Care Team Providers Care Drawer In Hand Name Role Phone Galdino Andujar Primary Care Physician [phone] [id number]): 12/06/22 - 12/06/22 [place] [address] [place] [phone] Discharge Disposition: Home or Self Care Attending Physician: EVIN Waggoner Lynn Referring Physician: EVIN Waggoner Lynn Allergies, Adverse Reactions, Alerts Substance Reaction Severity Status heparin Heparin-induced thrombocytopenia with thr ombosis Active morphine Agitation Active Jardiance UTI - urinary tract infection in pregnanc y Active Medications baclofen 5 mg oral tablet TAKE 1 [...] AT BEDTIME Start Date: 12/06/22 Status: Ordered gabapentin 300 mg oral capsule Start: 11/12/21 11:26:00 EST, 1 cap, PO, bid Start Date: 11/12/21 Status: Ordered levothyroxine 200 mcg (0.2 mg) [...] for dizziness Start Date: 11/12/21 Status: Ordered Mucomyst-20 for nebulization Start: 12/06/22 15:54:00 EDT, See Instructions, Disp# 12 mL, Refills: 0, 600 mg PO Take BID starting at 6pm evening before procedure/study., Note to Pharmacy: Dispense 4 doses of 600 mg, Pharmacy: [id number] Start Date: 12/06/22 Status: Ordered nortriptyline 25 mg oral capsule TAKE 1 CAPSULE BY MOUTH ONCE DAILY AT BEDTIME Start Date: 12/06/22 Status: Ordered NovoLOG FlexPen 100 units/mL injectable solution Start: 11/12/21 11:26:00 EST, sliding scale Start Date: 11/12/21 Status: Ordered ondansetron 4 mg oral tablet Start: 11/12/21 11:25:00 EST Start Date: 11/12/21 Status: Ordered Potassium Chloride (Ykk-Ajka-Xhc M10) 10 mEq oral tablet, extended release [...] for neuropathy Start Date: 11/12/21 Status: Ordered Problem List Condition Confirmation Course Effective Dates Status Health St atus Informant Carotid stenosis, right Confirmed Active Results Radiology Reports * Exam Date Time Procedure Performing Provider Status 12/06/22 3:32 PM VL Carotid Duplex Bilateral TuesdayEmeka; Final Notes: (VL Carotid Duplex Bilateral) Reason For Exam: FERNY VL Carotid Duplex Bilateral [facility] FINAL REPORT Name: GEENA MAC : 1955 Visit: [id number] Date: 06 Dec 2022 TYPE OF TEST: Cerebrovascular Duplex REASON FOR TEST Known carotid stenosis INTERPRETATION/FINDINGS Duplex imaging performed of the bilateral extracranial arteries: *Technically challenging exam due to patient's body habitus. 1. 80-99% stenosis in the right internal carotid artery (EDV is 141 cm/s). 2. No hemodynamically significant stenosis in the left internal carotid artery. 3. Retrograde flow in the right vertebral artery. 50-74 % stenosis of the right subclavian artery (ratio 2.7). Pressure gradient noted right < left. 4. Antegrade flow in the left vertebral artery. 5. Normal flow in the left subclavian artery. Plaque Morphology: 1. Complex, calcified plaque in the bulbs and ICA bilaterally. Compared to the previous study performed 11/02/2021, the degree of right ICA stenosis has increased to 80-99%. *Patient has follow-up appointment directly after exam. IMPRESSION/COMMENTS I have personally reviewed the data relevant to the interpretation of this study. TECHNOLOGIST: Arminda Hinojosa RDCS, RVT PHYSICIAN: Mirza Tang M.D. Signed: 12/06/2022 03:37 PM Final Dictated by:MD Tang Eugene J Dictated DT/TM:12/06/2022 3:37 Signed by:MD Tang Eugene J Signed (Electronic Signature):12/06/2022 3:37 p Transcribed by:EJS Social History Social History Type Response Sex Female US.doppler Carotid arteries - bilateral * MD Tang Eugene J: VERIFY, PERFORM, VERIFY, TRANSCRIBE Event Display: Report Authored Date: [id number] [facility] FINAL REPORT Name: GEENA MAC : 1955 Visit: [id number] Date: 06 Dec 2022 TYPE OF TEST: Cerebrovascular Duplex REASON FOR TEST Known carotid stenosis INTERPRETATION/FINDINGS Duplex imaging performed of the bilateral extracranial arteries: *Technically challenging exam due to patient's body habitus. 1. 80-99% stenosis in the right internal carotid artery (EDV is 141 cm/s). 2. No hemodynamically significant stenosis in the left internal carotid artery. 3. Retrograde flow in the right vertebral artery. 50-74 % stenosis of the right subclavian artery (ratio 2.7). Pressure gradient noted right < left. 4. Antegrade flow in the left vertebral artery. 5. Normal flow in the left subclavian artery. Plaque Morphology: 1. Complex, calcified plaque in the bulbs and ICA bilaterally. Compared to the previous study performed 11/02/2021, the degree of right ICA stenosis has increased to 80-99%. *Patient has follow-up appointment directly after exam. IMPRESSION/COMMENTS I have personally reviewed the data relevant to the interpretation of this study. TECHNOLOGIST: Arminda Hinojosa RDCS, RVT PHYSICIAN: Mirza Tang M.D. Signed: 12/06/2022 03:37 PM Final Dictated by:MD Tang Eugene J Dictated DT/TM:12/06/2022 3:37 Signed by:MD Tang Eugene J Signed (Electronic Signature):12/06/2022 3:37 p Transcribed by:TONIO Patient Care team information Personnel Name: DO Andujar Scott A Address: Address: [address] [place] [address]
--- OUTSIDE RECORDS SUMMARY | 2023-06-01 04:18 | External Medical Summary | Summary of Care ---
Author Name Unknown Organization [facility] Address [address] [place] [address] Phone [phone] Care Team Providers Care Product Merchandiser Name Role Phone Galdino Andujar DO Primary Care Provider [phone] Reason for Visit * Reason Onset Date Comments medication change 11/17/202211/17 Encounter Details Date Type Department Care Team Description 11/17/2022 Telephone Family Practice 65 [facility] [place] [address] [place] [address] Galdino Andujar DO 293 [place] [address] medication change (11/17) Allergies Active Allergy Reactions Severity Noted Date [...] as of this encounter (statuses as of 11/24/2022) Medications Medication Sig Dispensed Refills Start Date End Date Status ONETOUCH DELICA LANCETS 33G MISC Check blood sugars 3-4 times daily 180 Each 5 8 Active oxygen GASIndications:ELISSA (obstructive sleep apnea) 2 lpm continuous 0 0 Active DIURETIC TITRATION PLANIndications:Rebecca lynch [...] 7.0%-8.0% ([facility]) INJECT 60 UNITS UNDER THE SKIN [...] 2 Active Magnesium Oxide 400 MG Oral CapsuleIndications :Benign [...] > 150. 121 mL 3 3 Active traMADol HCl 50 MG Oral Tablet (Ultram)Indication s:Lumbar radiculopathy,Prim elif osteoarthritis of left knee Take 1 Tablet by mouth every 8 hours as needed for Pain, Severe. 90 Tablet 0 3 Active oxyCODONE-Acetamin ophen 5-325 MG Oral Tablet (Percocet)Indicati ons:Lumbar radiculopathy,Spin al stenosis of lumbar region without neurogenic claudication Take by mouth 1 Tablet every 12 hours as needed for Pain, Severe. 60 Tablet 0 2 023 Discontinued(Me dication/Dose Changed) Omeprazole 20 MG Oral Capsule Delayed ReleaseIndications :Gastroesophageal reflux disease with esophagitis without hemorrhage Take 1 Capsule (20 mg) by mouth in the morning. 30 Capsule 3 2 023 Discontinued Baclofen 5 MG Oral Tablet (Lioresal)Indicati ons:Fibromyalgia Take 1 Tablet (5 mg) by mouth 2 times a day as needed for Muscle spasms. 60 Tablet 1 2 023 Discontinued clonazePAM 0.5 MG Oral Tablet (KlonoPIN)Indicati ons:Restless legs syndrome,Anxiety state Take 1 Tablet by mouth in the morning and 1 Tablet before bedtime. 60 Tablet 0 2 023 Discontinued documented as of this encounter (statuses as of 11/24/2022) Active Problems Problem Noted Date Food insecurity [...] thrombocytopenia (HIT) 0 12/31/2021 Atherosclerosis of [place] coronary arter 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 12/31/2021 [...] as of this encounter (statuses as of 11/24/2022) Resolved Problems Problem Noted Date Resolved Date [...] as of this encounter (statuses as of 11/24/2022) Immunizations Name Administration Dates Next Due COVID-19 mRNA, LNP-s, No Pre serve, 2-Dose Series (myfab5) 01/08/2021,12/18/2020 COVID-19, LNP-s, No Preserve , Navarro-sucrose, Ages 12+ (Pfizer) 2022,10/01/2021 Pneumococcal Conjugate Vacci ne, 20-valent ([id number]) 03/12/2022 Pneumococcal Polysaccharide PPV23 (Pneumovax) 08/22/2009,06/15/2006 Seasonal [...] - Chasity Del Toro LPN - 11/24/2022 11:21 AM EST Received a call from Vickie at [facility] regarding prior auth for tramadol and patient also being on clonazepam. She states they need an attestation attached to the auth stating that it is medically necessary that she is on both the tramadol and a benzodiazepine. If possible, please have this back to them by 3:00pm today because they only have until early tomorrow morning to complete this. Thank you! * Telephone Encounter - Galdino Andujar DO - 11/17/2022 3:16 PM EST I have reviewed the patients controlled substance dispensing history in the Prescription Drug Monitoring Program in compliance with the [facility] regulations before prescribing a controlled substance. Last Tox Screen Results: No results found. However, due to the size of the patient record, not all encounters were searched.Please check Results Review for a complete set of results. * Telephone Encounter - Shira Gross LPN - 11/17/2022 2:57 PM EST Would prefer to have the tramadol and not take the oxy please States she usually takes once daily but does take occasional ones thru day Thank you * Telephone Encounter - Chasity Del Toro LPN - 11/17/2022 1:25 PM EST Pended tramadol script per CC'd chart from [facility]. Cancelled oxycodone. documented in this encounter Plan of Treatment Upcoming Encounters Date Type Specialty Care Team Description 11/26/2022 Telemedicine [facility], [place], Pharmacist 65 [facility] 293 [place] [address] 11/29/2022 Office Visit [facility] Medicine Galdino Andujar DO 293 [place] [address] 12/06/2022 Telemedicine [facility] [place], Pharmacist [address] [place] [address] 12/24/2022 Home Visit [facility] Simi Martinez PA-C 132 [place] [address] 12/28/2022 Office Visit Nephrology Erik Lenz MD 200 [place] [address] 01/18/2023 Home Visit [facility] Brooke Jose RN 132 [facility] [place] [address] 01/19/2023 [facility]Diagnostic [facility] Pft [facility] [address] 08/08/2023 Nurse Only [employer], Nurse Annual Wellness Visit [address] [place] [address] Scheduled Procedures Name Priority Associated Diagnoses Date/Ti me COLONOSCOPY FLEXIBLE PROXIMAL DIAGNOSTIC Recall Colon cancer screening Health Maintenance Due Date Last Done Comments Cologuard: Ages 45-75 2000 FOBT: Ages 45-75 2000 Sigmoidoscopy: Ages 45-75 2000 COVID-19 Vaccine (5 - Booster for Pfizer series) 06/08/2022 2022, 10/01/2021, 01/08/2021, Additional history exists CKD PHOS USE SMARTSET 11044 01/07/202312/25, 03/12/2021, 11/17/2020, Additional history exists Mammogram 02/11/2023 02/11/2022, 02/2021, 07/10/2019, Additional history exists GFR - Renal Function 05/01/2023 11/01/2022, 09/13/2022, 08/13/2022, Additional history exists HgA1C 05/01/2023 11/01/2022, 04/26, 01/07/2022, Additional history exists DIABETES-EYE EXAM 05/24/2023 05/24/2022, , 04/07/2020, Additional history exists Albumin/Creatinine Ratio 11/01/2023 023, 01/07/2022, 05/24/2019, Additional history exists CKD HGB USE SMARTSET 99430 11/01/202311/01, 11/01/2022, 06/29/2022, Additional history exists DIABETES-FOOT [...] Documents on File Type Date Recorded 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 No Healthcare Agents on File Name Relationship Healthcare Agent Relationship Communication Galdino Camp Other - (no specific identity) Health Care Power of Export Coordinator Princesseugene Thrashery Other - (no specific identity) Health Care Power of Export Coordinator Care Teams Product Merchandiser Relationship Specialty Start Date End Date Galdino Andujar, [address] [place] [address] PCP - General Internal Medicine 01/07/22 documented as of this encounter
--- OUTSIDE RECORDS SUMMARY | 2023-06-01 04:18 | External Medical Summary | Summary of Care ---
Author Name Unknown Organization [facility] Address [address] [place] [address] Phone [phone] Care Team Providers Care Grades 1 Thru 6 Home Teacher Name Role Phone Galdino Andujar DO Primary Care Provider [phone] Reason for Visit * Reason Onset Date Comments Advice 11/23/2022 Blood sugars Diabetes Follow-Up 11/23/2022 Encounter Details Date Type Department Care Team Description 11/23/2022 Telephone Family Practice 65 [facility] [place] [address] [place] [id number] Galdino Andujar DO 293 [place], [place] [phone] Advice (Blood sugars); Diabetes Follow-Up Allergies Active Allergy Reactions Severity Noted Date [...] as of this encounter (statuses as of 11/23/2022) Medications Medication Sig Dispensed Refills Start Date End Date Status ONETOUCH DELICA LANCETS 33G MISC Check blood sugars 3-4 times daily 180 Each 5 08/01/2018 Active oxygen GASIndications:ELISSA (obstructive sleep apnea) 2 lpm continuous 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: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 Clerk zahra diastolic congestive heart failure (HCC) If [...] goal of 7.0%-8.0% ([facility]) INJECT 60 UNITS UNDER THE SKIN EVERY [...] as of this encounter (statuses as of 11/23/2022) Active Problems Problem Noted Date Food insecurity 11/08/2022 Overview: Per [facility] Protocol Type 2 diabetes mellitus wit [...] 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/31/2021 Atherosclerosis of [place] coronary arter 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 12/31/2021 [...] as of this encounter (statuses as of 11/23/2022) Resolved Problems Problem Noted Date Resolved Date [...] as of this encounter (statuses as of 11/23/2022) Immunizations Name Administration Dates Next Due COVID-19 mRNA, LNP-s, No Pre serve, 2-Dose Series ([employer]) 01/08/2021,12/18/2020 COVID-19, LNP-s, No Preserve , Navarro-sucrose, Ages 12+ (Pfizer) 2022,10/01/2021 Pneumococcal Conjugate Vacci ne, 20-valent ([id number]) 03/12/2022 Pneumococcal Polysaccharide PPV23 (Pneumovax) 08/22/2009,06/15/2006 Seasonal [...] Miscellaneous Notes * Telephone Encounter - Frances Greer, [facility] - 11/23/2022 2:58 PM EST Images from the original note were not included. Patient Phone Numbers Returned patient's call - concerned about elevated BG over the past couple days. Diabetic Medications: DECREASE: Novolog- 40 units withbreakfast, 42 units lunch and 45 units with supper+ SS 1:25 >150 before meals INCREASE: [id number] units atbedtime Trulicity 4.5 mg weekly-Tuesdaymornings Metformin ER 500 mg 1 tablet daily [id number]/13/22 Patient confirms adherence to insulin doses from last appointment. Denies missed doses. Reports injecting Novolog immediately before meals. Patient endorses only recent change has been switching sensor to opposite arm this past Tuesday, no difference in diet/activity. Does note that she has been out of pain medicine for a week now. Patient was supposed to switch from oxycodone to tramadol but insurance requiring [place] for tramadol so she has not been able to start it. Informed patient that increased pain can cause an elevation of BG. Hesitant to increase insulin for potentially acute issue and cause lows. Patient agreeable to continue observing BG over the next few days and see if hyperglycemia resolves. I contacted patient's pharmacy to have them fax PA to office for Dr. Andujar to complete. Will follow up with patient when shecomes in for her appt with Dr. Tierney 11/29/22. Lois MillerD, [facility] PGY1 Quality Tech Med[facility] Therapy [facility] 11/23/22, 4:27 PM * Telephone Encounter - ELISSA Snider - 11/23/2022 1:41 PM EST Blood sugars have been running high past couple days and has no idea why this is Please call and advise documented in this encounter Plan of Treatment Upcoming Encounters Date Type Specialty Care Team Description 11/26/2022 Pharmacy [facility], Pharmacist [address], [place] [address] 11/29/2022 Office Visit [facility] Medicine Galdino Andujar, 293 [facility], [place] [address] 12/06/2022 Telemedicine [facility], Pharmacist [address] [place] [address] 12/24/2022 [facility] Simi Martinez PA-C 132 [facility] [place] [address] 12/28/2022 Office Visit Nephrology Erik Lenz MD [address] [place] [place] [address] 01/18/2023 Home Visit [facility] Brooke Jose RN 132 [facility] [place] [address] 01/19/2023 PulmDiagnostic Pulmonary Function West, Pft 132 [facility] [place] [address] 08/08/2023 Nurse Only [employer]illary [employer], Nurse Annual Wellness Visit 65 [facility] 293 [facility], [place] [address] Scheduled Procedures Name Priority Associated Diagnoses Date/Ti me COLONOSCOPY FLEXIBLE PROXIMAL DIAGNOSTIC Recall Colon cancer screening Health Maintenance Due Date Last Done Comments Cologuard: Ages 45-75 2000 FOBT: Ages 45-75 2000 Sigmoidoscopy: Ages 45-75 2000 COVID-19 Vaccine (5 - Booster for Pfizer series) 06/08/2022 2022, 10/01/2021, 01/08/2021, Additional history exists CKD PHOS USE SMARTSET 90411 01/07/202312/25, 03/12/2021, 11/17/2020, Additional history exists Mammogram 02/11/2023 02/11/2022, 02/2021, 07/10/2019, Additional history exists GFR - Renal Function 05/01/2023 11/01/2022, 09/13/2022, 08/13/2022, Additional history exists HgA1C 05/01/2023 11/01/2022, 04/26, 01/07/2022, Additional history exists DIABETES-EYE EXAM 05/24/2023 05/24/2022, , 04/07/2020, Additional history exists Albumin/Creatinine Ratio 11/01/2023 023, 01/07/2022, 05/24/2019, Additional history exists CKD HGB USE SMARTSET 11932 11/01/202311/01, 11/01/2022, 06/29/2022, Additional history exists DIABETES-FOOT [...] Documents on File Type Date Recorded Patient Academic Support Director Expl anation POLST 03/19/2020 4:25 PM [...] the patient have Health Care Power of Concrete Pile Driver Operator? No Healthcare Agents on File Name Relationship Healthcare Agent Relationship Communication Galdino Camp Other - (no specific identity) Health Care Power of Concrete Pile Driver Operator Princess Staplesfany Other - (no specific identity) Health Care Power of Concrete Pile Driver Operator Care Teams Grades 1 Thru 6 Home Teacher Relationship Specialty Start Date End Date Galdino Andujar, DO [address] [place] [address] PCP - General Internal Medicine 01/07/22 documented as of this encounter
--- OUTSIDE RECORDS SUMMARY | 2023-06-01 04:18 | External Medical Summary | Summary of Care ---
Author Name Unknown Organization [facility] Address [address] [place] [address] Phone [phone] Care Team Providers Care Clothing Consultant Name Role Phone Galdino Andujar DO Primary Care Provider [phone] Reason for Visit * Reason Onset Date Comments medication change 11/17/202211/17 Encounter Details Date Type Department Care Team Description 11/17/2022 Telephone Family Practice 65 [facility] [place] 293 [place] [address] Galdino Andujar DO 293 [place] [address] medication change (11/17) Allergies Active [...] of 7.0%-8.0% ([facility]) INJECT 60 UNITS UNDER THE [...] 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 She can be reached at [phone] * Telephone Encounter - Chasity Del Toro LPN - 11/24/2022 11:21 AM EST Received a call from Vickie at [facility] regarding prior auth for tramadol and [...] Drug Monitoring Program in compliance with the [facility] regulations before prescribing a controlled substance. Last [...] Pended tramadol script per CC'd chart from [facility]. Cancelled oxycodone. documented in this encounter Plan of Treatment Upcoming Encounters Date Type Specialty Care Team Description 11/26/2022 Telemedicine [facility], Pharmacist [address] [place] [address] 11/29/2022 Office Visit Family Medicine Galdino Andujar, 293 [place] [address] 12/06/2022 Telemedicine [facility], Pharmacist 65 [facility] 293 [place] [address] 12/24/2022 Home Visit [facility] Simi Martinez PA-C 132 [facility] [place] [address] 12/28/2022 Office Visit Nephrology Erik Lenz MD 200 [facility] [place] [address] 01/18/2023 Home Visit [facility] Brooke Jose RN 132 [facility] [place] [address] 01/19/2023 PulmDiagnostic Pulmonary Function West, Pft 132 [facility] [place] [address] 08/08/2023 Nurse Only [employer]illary [employer], Nurse Annual Wellness Visit [address], [place] [address] Scheduled Procedures Name Priority Associated Diagnoses Date/Ti me COLONOSCOPY FLEXIBLE PROXIMAL DIAGNOSTIC Recall Colon cancer screening Health Maintenance Due Date Last Done Comments Cologuard: Ages 45-75 2000 FOBT: Ages 45-75 2000 Sigmoidoscopy: Ages 45-75 2000 COVID-19 Vaccine (5 - Booster for Pfizer series) 06/08/2022 2022, 10/01/2021, 01/08/2021, Additional history exists CKD PHOS USE SMARTSET 09659 01/07/202312/25, 03/12/2021, 11/17/2020, Additional history exists Mammogram 02/11/2023 02/11/2022, 01/0 02/2021, 07/10/2019, Additional history exists GFR - Renal Function 05/01/2023 11/01/2022, 09/13/2022, 08/13/2022, Additional history exists HgA1C 05/01/2023 11/01/2022, 04/26, 01/07/2022, Additional history exists DIABETES-EYE EXAM 05/24/2023 05/24/2022, , 04/07/2020, Additional history exists Albumin/Creatinine Ratio 11/01/2023 023, 01/07/2022, 05/24/2019, Additional history exists CKD HGB USE SMARTSET 94101 11/01/202311/01, 11/01/2022, 06/29/2022, Additional history exists DIABETES-FOOT [...] Documents on File Type Date Recorded 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 No Healthcare Agents on File Name Relationship Healthcare Agent Relationship Communication Galdino Camp Other - (no specific identity) Health Care Power of Parcel Wrapper Princess Allen Other - (no specific identity) Health Care Power of Parcel Wrapper Care Teams Clothing Consultant Relationship Specialty Start Date End Date Galdino Andujar, [address] [place] [address] PCP - General Internal Medicine 01/07/22 documented as of this encounter
--- OUTSIDE RECORDS SUMMARY | 2023-06-01 04:18 | External Medical Summary | Summary of Care ---
Author Name Unknown Organization [facility] Address [address] [place] [address] Phone [phone] Care Team Providers Care Cosmetics Counter Manager Name Role Phone Galdino Andujar DO Primary Care Provider [phone] Reason for Visit * Reason Onset Date Comments Advice 11/23/2022 Blood sugars Diabetes Follow-Up 11/23/2022 Encounter Details Date Type Department Care Team Description 11/23/2022 Telephone Family Practice 65 [facility] [place] [address] [place] [phone] Galdino Andujar DO 293 [place], [place] [phone] Advice (Blood sugars); Diabetes Follow-Up Allergies Active [...] daily 180 Each 5 08/01/2018 Active oxygen GASIndications:ELSISA (obstructive sleep apnea) 2 lpm continuous 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:Business Process 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 zahra diastolic congestive heart failure (HCC) [...] of 7.0%-8.0% ([facility]) INJECT 60 UNITS UNDER THE SKIN EVERY [...] Noted Date Food insecurity 11/08/2022 Overview: Per [email or web address] Protocol Type 2 diabetes mellitus wit [...] thrombocytopenia (HIT) 0 12/31/2021 Atherosclerosis of [place] coronary arter 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 12/31/2021 [...] mRNA, LNP-s, No Pre serve, 2-Dose Series ([employer]) 01/08/2021,12/18/2020 COVID-19, LNP-s, No Preserve , Navarro-sucrose, Ages 12+ (Pfizer) 2022,10/01/2021 Pneumococcal Conjugate Vacci ne, 20-valent ([id number]) 03/12/2022 Pneumococcal Polysaccharide PPV23 (Pneumovax) 08/22/2009,06/15/2006 Seasonal [...] Notes * Telephone Encounter - Frances Greer, [facility] - 11/23/2022 2:58 PM EST Images from the original note were not included. Patient Phone Numbers Returned patient's call - concerned about elevated BG over the past couple days. Diabetic Medications: DECREASE: Novolog- 40 units withbreakfast, 42 units lunch and 45 units with supper+ SS 1:25 >150 before meals INCREASE: [id number] units atbedtime Trulicity 4.5 mg weekly-Tuesdaymornings Metformin ER 500 mg 1 tablet daily [id number]/min09/13/22 Patient confirms adherence to insulin doses from [...] appt with Dr. Tierney 11/29/22. Lois MillerD, [facility] PGY1 University Manager Medication Therapy Management [facility] 11/23/22, 4:27 PM * Telephone Encounter - ELISSA Snider - 11/23/2022 1:41 PM EST Blood sugars have been running high past couple days and has no idea why this is Please call and advise documented in this encounter Plan of Treatment Upcoming Encounters Date Type Specialty Care Team Description 11/26/2022 Pharmacy [facility], Pharmacist [address], [place] [address] 11/29/2022 Office Visit [facility] Medicine Galdino Andujar, 293 [facility], [place] [address] 12/06/2022 Telemedicine [facility], Pharmacist [address] [place] [address] 12/24/2022 [facility] Simi Martinez PA-C 132 [facility] [place] [address] 12/28/2022 Office Visit Nephrology Erik Lenz MD [address] [place] [address] 01/18/2023 Home Visit [facility] Brooke Jose RN 132 [facility] [place] [address] 01/19/2023 PulmDiagnostic Pulmonary Function West, Pft 132 [facility] [place] [address] 08/08/2023 Nurse Only [employer]illary [employer], Nurse Annual Wellness Visit 65 [facility] 293 [facility], [place] [address] Scheduled Procedures Name Priority Associated Diagnoses Date/Ti me COLONOSCOPY FLEXIBLE PROXIMAL DIAGNOSTIC Recall Colon cancer screening Health Maintenance Due Date Last Done Comments Cologuard: Ages 45-75 2000 FOBT: Ages 45-75 2000 Sigmoidoscopy: Ages 45-75 2000 COVID-19 Vaccine (5 - Booster for Pfizer series) 06/08/2022 2022, 10/01/2021, 01/08/2021, Additional history exists CKD PHOS USE SMARTSET 61686 01/07/202312/25, 03/12/2021, 11/17/2020, Additional history exists Mammogram 02/11/2023 02/11/2022, 02/2021, 07/10/2019, Additional history exists GFR - Renal Function 05/01/2023 11/01/2022, 09/13/2022, 08/13/2022, Additional history exists HgA1C 05/01/2023 11/01/2022, 04/26, 01/07/2022, Additional history exists DIABETES-EYE EXAM 05/24/2023 05/24/2022, , 04/07/2020, Additional history exists Albumin/Creatinine Ratio 11/01/2023 023, 01/07/2022, 05/24/2019, Additional history exists CKD HGB USE SMARTSET 52597 11/01/202311/01, 11/01/2022, 06/29/2022, Additional history exists DIABETES-FOOT [...] Documents on File Type Date Recorded Patient Oil Field Caser Expl anation POLST 03/19/2020 4:25 PM POLST [...] the patient have Health Care Power of Woodworking Shop Hand? No Healthcare Agents on File Name Relationship Healthcare Agent Relationship Communication Galdino Camp Other - (no specific identity) Health Care Power of Woodworking Shop Hand Princess Staplesfany Other - (no specific identity) Health Care Power of Woodworking Shop Hand Care Teams Cosmetics Counter Manager Relationship Specialty Start Date End Date Galdino Andujar, DO [address] [place] [address] PCP - General Internal Medicine 01/07/22 documented as of this encounter
--- OUTSIDE RECORDS SUMMARY | 2023-06-01 04:18 | External Medical Summary | Summary of Care ---
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 Was able to get following information from [facility] pharmacist: Attestation from Dr. Andujar faxed to the two numbers above. Frances Duong, Pharm D, [facility] Clinical Pharmacist Medication Therapy Disease Management Clinic 11/24/2022, 1:01 PM Ph. [phone] * Telephone Encounter - Frances Duong [facility] - 11/24/2022 12:30 PM EST Called back to [facility] and they have no record of Vickie Allen calling. * Telephone Encounter - ELISSA Silva - 11/24/2022 12:24 PM EST Tiffany [facility], calling to check the status of this message. She can be reached at [phone] * Telephone Encounter - Chasity Del Toro LPN - 11/24/2022 11:21 AM EST Received a call from Vickie at [facility] regarding prior auth for tramadol and patient [...] Drug Monitoring Program in compliance with the [facility] regulations before prescribing a controlled [...] Pended tramadol script per CC'd chart from [facility]. Cancelled oxycodone. documented in this encounter Plan of Treatment Upcoming Encounters Date Type Specialty Care Team Description 11/26/2022 [facility], Pharmacist [address] [address] 11/29/2022 Office Visit Family Medicine Galdino Andujar DO 293 [place] [address] 12/06/2022 Telemedicine [facility], Pharmacist [address] [place] [address] 12/24/2022 Home Visit [facility] Simi Martinez PA-C [address] [place] [address] 12/28/2022 Office Visit Nephrology Erik Lenz MD 200 [facility], [place] [address] 01/18/2023 [facility] Brooke Jose, RN [facility] [address] 01/19/2023 PulmDiagnostic [facility], Pft 132 [facility] [place] [address] 08/08/2023 Nurse Only Ancillary College, Nurse Annual Wellness Visit 65 [facility] 293 [facility], [place] [address] Scheduled Procedures Name Priority Associated Diagnoses Date/Ti me COLONOSCOPY FLEXIBLE PROXIMAL DIAGNOSTIC Recall Colon cancer screening Health Maintenance Due Date Last Done Comments Cologuard: Ages 45-75 2000 FOBT: Ages 45-75 2000 Sigmoidoscopy: Ages 45-75 2000 COVID-19 Vaccine (5 - Booster for Pfizer series) 06/08/2022 2022, 10/01/2021, 01/08/2021, Additional history exists CKD PHOS USE SMARTSET 16258 01/07/202312/25, 03/12/2021, 11/17/2020, Additional history exists Mammogram 02/11/2023 02/11/2022, 02/2021, 07/10/2019, Additional history exists GFR - Renal Function 05/01/2023 11/01/2022, 09/13/2022, 08/13/2022, Additional history exists HgA1C 05/01/2023 11/01/2022, 04/26, 01/07/2022, Additional history exists DIABETES-EYE EXAM 05/24/2023 05/24/2022, , 04/07/2020, Additional history exists Albumin/Creatinine Ratio 11/01/20232 023, 01/07/2022, 05/24/2019, Additional history exists CKD HGB USE SMARTSET 41893 11/01/202311/01, 11/01/2022, 06/29/2022, Additional history exists DIABETES-FOOT [...] Documents on File Type Date Recorded 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 No Healthcare Agents on File Name Relationship Healthcare Agent Relationship Communication Galdino Camp Other - (no specific identity) Health Care Power of Milk Hauler Princess Allen Other - (no specific identity) Health Care Power of Milk Hauler Care Teams Gum Cook Relationship Specialty Start Date End Date Galdino Andujar, DO [address] [place] [address] PCP - General Internal Medicine 01/07/22 documented as of this encounter
--- OUTSIDE RECORDS SUMMARY | 2023-06-01 04:18 | External Medical Summary | Summary of Care ---
Author Name Unknown Organization [facility] Address [address] [place] [address] Phone [phone] Care Team Providers Care Wholesale And Retail Merchant Name Role Phone Galdino Andujar DO Primary Care Provider [phone] Reason for Visit * Reason Onset Date Comments Advice 11/23/2022 Blood sugars Diabetes Follow-Up 11/23/2022 Encounter Details Date Type Department Care Team Description 11/23/2022 Telephone Family Practice 65 [facility] [place] [address] [place] [phone] Galdino Andujar DO [address] [place], [place] [phone] Advice (Blood sugars); Diabetes Follow-Up Allergies Active [...] as of this encounter (statuses as of 11/26/2022) Medications Medication Sig Dispensed Refills Start Date End Date Status ONETOUCH DELICA LANCETS 33G MISC Check blood sugars 3-4 times daily 180 Each 5 08/01/2018 Active oxygen GASIndications:ELISSA (obstructive sleep apnea) 2 lpm continuous 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: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 Abnormality of gait 02/02/[address] 08/19/2014 History of pulmonary [...] as of this encounter (statuses as of 11/26/2022) Resolved Problems Problem Noted Date Resolved Date [...] as of this encounter (statuses as of 11/26/2022) Immunizations Name Administration Dates Next Due COVID-19 mRNA, LNP-s, No Pre serve, 2-Dose Series ([employer]) 01/08/2021,12/18/2020 COVID-19, LNP-s, No Preserve , Navarro-sucrose, Ages 12+ (Pfizer) 2022,10/01/2021 Pneumococcal Conjugate Vacci ne, 20-valent ([id number]) 03/12/2022 Pneumococcal Polysaccharide PPV23 (Pneumovax) 08/22/2009,06/15/2006 Seasonal [...] - Chasity Del Toro LPN - 11/24/2022 1:11 PM EST Noted. * Telephone Encounter - Frances Greer [facility] - 11/23/2022 2:58 PM EST Images from the original note were not included. Patient Phone Numbers Returned patient's call - concerned about elevated BG over the past couple days. Diabetic Medications: DECREASE: Novolog- 40 units withbreakfast, 42 units lunch and 45 units with supper+ SS 1:25 >150 before meals INCREASE: [id number] units atbedtime Trulicity 4.5 mg weekly-Tuesdaymor Metformin ER 500 mg 1 tablet daily [id number]/min09/13/22 Patient confirms adherence to insulin doses from [...] to complete. Will follow up with patient in a fewdays to check on BG. Frances Greer, PharmD, [facility] PGY1 Adult Day Care Worker Medication Therapy Management Clinic 11/23/22, 4:27 PM [...] Medicine Galdino Andujar, [facility] [address] 12/06/2022 Telemedicine [facility], Pharmacist 65 [facility] [address] 12/24/2022 [facility]i Martinez [facility]-C [facility] [address] 12/28/2022 Office Visit Nephrology Erik Lenz MD [address] [place] [place] [address] 01/18/2023 Home Visit [facility] Brooke Jose, RN 132 [facility] [place] [address] 01/19/2023 PulmDiagnostic Pulmonary Function [facility], Pft 132 [facility] [place] [address] 08/08/2023 Nurse Only Ancillary [place], Nurse Annual Wellness Visit [address] [place] [address], [place] [address] Scheduled Procedures Name Priority Associated Diagnoses Date/Ti me COLONOSCOPY FLEXIBLE PROXIMAL DIAGNOSTIC Recall Colon cancer screening Health Maintenance Due Date Last Done Comments Cologuard: Ages 45-75 2000 FOBT: Ages 45-75 2000 Sigmoidoscopy: Ages 45-75 2000 COVID-19 Vaccine (5 - Booster for Pfizer series) 06/08/2022 2022, 10/01/2021, 01/08/2021, Additional history exists CKD PHOS USE SMARTSET 48648 01/07/202312/25, 03/12/2021, 11/17/2020, Additional history exists Mammogram 02/11/2023 02/11/2022, 02/2021, 07/10/2019, Additional history exists GFR - Renal Function 05/01/2023 11/01/2022, 09/13/2022, 08/13/2022, Additional history exists HgA1C 05/01/2023 11/01/2022, 04/26, 01/07/2022, Additional history exists DIABETES-EYE EXAM 05/24/2023 05/24/2022, , 04/07/2020, Additional history exists Albumin/Creatinine Ratio 11/01/2023 023, 01/07/2022, 05/24/2019, Additional history exists CKD HGB USE SMARTSET 05508 11/01/202311/01, 11/01/2022, 06/29/2022, Additional history exists DIABETES-FOOT [...] Documents on File Type Date Recorded Patient Garde Manager Expl anation POLST 03/19/2020 4:25 PM [...] the patient have Health Care Power of General Farmworker? No Healthcare Agents on File Name Relationship Healthcare Agent Relationship Communication Galdino Camp Other - (no specific identity) Health Care Power of General Farmworker Princess Other - (no specific identity) Health Care Power of General Farmworker Care Teams Wholesale And Retail Merchant Relationship Specialty Start Date End Date Galdino Andujar, DO 293 [facility] [place] [address] PCP - General Internal Medicine 01/07/22 documented as of this encounter
--- OUTSIDE RECORDS SUMMARY | 2023-06-01 04:18 | External Medical Summary | Summary of Care ---
Author Name Unknown Organization [facility] Address [address] [place] [address] Phone [phone] Care Team Providers Care Night Stocker Name Role Phone Galdino Andujar DO Primary Care Provider [phone] Reason for Visit * Reason Onset Date Comments Advice 11/23/2022 Blood sugars Diabetes Follow-Up 11/23/2022 Encounter Details Date Type Department Care Team Description 11/23/2022 Telephone Family Practice 65 [facility] [place] [address] [place] [phone] Galdino Andujar DO [address] [place], [place] [phone] Advice (Blood sugars); Diabetes Follow-Up Allergies Active [...] lpm continuous 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: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 Abnormality of gait 02/02/[address] 08/19/2014 History of pulmonary [...] mRNA, LNP-s, No Pre serve, 2-Dose Series ([employer]) 01/08/2021,12/18/2020 COVID-19, LNP-s, No Preserve , Navarro-sucrose, Ages 12+ (Pfizer) 2022,10/01/2021 Pneumococcal Conjugate Vacci ne, 20-valent ([id number]) 03/12/2022 Pneumococcal Polysaccharide PPV23 (Pneumovax) 08/22/2009,06/15/2006 Seasonal [...] Noted. * Telephone Encounter - Frances Greer [facility] - 11/23/2022 2:58 PM EST Images from the original note were not included. Patient Phone Numbers Returned patient's call - concerned about elevated BG over the past couple days. Diabetic Medications: DECREASE: Novolog- 40 units withbreakfast, 42 units lunch and 45 units with supper+ SS 1:25 >150 before meals INCREASE: [id number] units atbedtime Trulicity 4.5 mg weekly-Tuesdaymo Metformin ER 500 mg 1 tablet daily [id number]/min09/13/22 Patient confirms adherence to insulin doses from [...] appt with Dr. Tierney 11/29/22. Lois MillerD, [facility] PGY1 Mumps Developer Medication Therapy Management Clinic 11/23/22, 4:27 PM * Telephone Encounter - ELISSA Snider - 11/23/2022 1:41 PM EST Blood sugars have been running high past couple days and has no idea why this is Please call and advise documented in this encounter Plan of Treatment Upcoming Encounters Date Type Specialty Care Team Description 11/26/2022 Telemedicine [facility], Pharmacist [address] [place] [facility] [address] 11/29/2022 Office Visit [facility] Medicine Galdino Andujar, [facility] [address] 12/06/2022 Telemedicine [facility], Pharmacist 65 [facility] 293 [place] [address] 12/24/2022 Home Visit [facility] Simi Martinez PA-C 132 [place] [address] 12/28/2022 Office Visit Nephrology Erik Lenz MD 200 [place] [address] 01/18/2023 Home Visit [facility] Brooke Jose RN 132 [facility] [place] [address] 01/19/2023 PulmDiagnostic Pulmonary Function West, Pft 132 [place] [address] 08/08/2023 Nurse Only Ancillary College, Nurse Annual Wellness Visit 65 [facility] 293 [place] [address] Scheduled Procedures Name Priority Associated Diagnoses Date/Ti me COLONOSCOPY FLEXIBLE PROXIMAL DIAGNOSTIC Recall Colon cancer screening Health Maintenance Due Date Last Done Comments Cologuard: Ages 45-75 2000 FOBT: Ages 45-75 2000 Sigmoidoscopy: Ages 45-75 2000 COVID-19 Vaccine (5 - Booster for Pfizer series) 06/08/2022 2022, 10/01/2021, 01/08/2021, Additional history exists CKD PHOS USE SMARTSET 21621 01/07/202312/25, 03/12/2021, 11/17/2020, Additional history exists Mammogram 02/11/2023 02/11/2022, 01/0 02/2021, 07/10/2019, Additional history exists GFR - Renal Function 05/01/2023 11/01/2022, 09/13/2022, 08/13/2022, Additional history exists HgA1C 05/01/2023 11/01/2022, 04/26, 01/07/2022, Additional history exists DIABETES-EYE EXAM 05/24/2023 05/24/2022, , 04/07/2020, Additional history exists Albumin/Creatinine Ratio 11/01/2023 023, 01/07/2022, 05/24/2019, Additional history exists CKD HGB USE SMARTSET 45280 11/01/202311/01, 11/01/2022, 06/29/2022, Additional history exists DIABETES-FOOT [...] Documents on File Type Date Recorded Patient Perfect Binder Operator Expl anation POLST 03/19/2020 4:25 PM [...] the patient have Health Care Power of Cryogenics Engineer? No Healthcare Agents on File Name Relationship Healthcare Agent Relationship Communication Galdino Camp Other - (no specific identity) Health Care Power of Cryogenics Engineer Princess Other - (no specific identity) Health Care Power of Cryogenics Engineer Care Teams Night Stocker Relationship Specialty Start Date End Date Galdino Andujar, DO [address] [place] [address] PCP - General Internal Medicine 01/07/22 documented as of this encounter
--- OUTSIDE RECORDS SUMMARY | 2023-06-01 04:18 | External Medical Summary | Summary of Care ---
Author Name Unknown Organization [facility] Address [address] [place] [address] Phone [phone] Care Team Providers Care Gis Web Developer Name Role Phone Galdino Andujar DO Primary Care Provider [phone] Reason for Visit * Reason Comments [facility]: Maintenance Encounter Details Date Type Department Care Team Description 11/22/2022 Home Visit [facility], [facility] 132 [facility] [place] [address] Brooke Jose, RN 132 [facility] [place] [address] Advanced care planning/counseling discussion* Allergies Active Allergy Reactions Severity Noted Date [...] directed continuous. 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 Abnormality of gait 02/02/[address] 08/19/2014 History of pulmonary [...] mRNA, LNP-s, No Pre serve, 2-Dose Series ([employer]) 01/08/2021,12/18/2020 COVID-19, LNP-s, No Preserve , Navarro-sucrose, Ages 12+ (Pfizer) 2022,10/01/2021 Pneumococcal Conjugate Vacci ne, 20-valent ([id number]) 03/12/2022 Pneumococcal Polysaccharide PPV23 (Pneumovax) 08/22/2009,06/15/2006 Seasonal [...] Sign Reading Time Taken Comments Blood Pressure 124/70 11/22/2022 10:07 AM EST Pulse 103 11/22/2022 10:07 AM EST Temperature 36.4 C (97.5 F) 11/22/2022 10:[address] Respiratory Rate 18 11/22/2022 10:07 AM EST Oxygen Saturation 97% 11/22/2022 10:07 AM EST Inhaled Oxygen Concentration - - Weight 142 kg (313 lb) 11/22/2022 10:07 AM EST Height - - Body Mass Index 52.09 11/01/2022 1:29 PM EST documented in this encounter Progress Notes * Brooke Jose RN - 11/22/2022 9:50 AM EST [facility] Evp Chief Exploration Officer Monthly Visit Date: 11/22/2022 Time: 9:50 AM Name: Stephanie Camp : 1955 Situation: return Background: [facility] Enrollment Date: 06/14/22- Focused Care (3-9 months) PMHx: [place] filter, CHF, CHF, DVT, venous insufficiency, vasculitis, CAD, carotid stenosis, chronic hypoxemic respiratory failure, ELISSA, o2 dependent, GERD, DM, Hx PE, spinal stenosis A1C 11/01/22: 6.9 [facility] OF 11/22/22, QUIT DRIVING Utilization: 07/16 - - [facility] Admission - falls, acute on chronic CHF, acute on chronic respiratory failure,cellulitis R hand d/t cat bite 07/29 - 03/17 - [facility] - acute on chronic resp fx with hypoxia, UTI, chronic diastolic HF, d/c home on doxycycline and cefdinir 09/06/22 - Acute [facility] HV -DTP initiated, keflex for cellulitis, urine culture was negative 09/19/22 - [facility] ER - abdominal pain, CT negative, no changes 10/11/22 - Acute visit for respiratory viral swab - negative 10/25/22 - Acute call to [facility] - n/v/d, vertigo Living Situation: alone in [facility] Medication Management: pill packs from [facility] ACP: updated 11/22/22 [facility] Provider Visit: 08/10/22, 11/22/22 - message to scheduling to get pt scheduled to see Simi Martinez Assessment: Has stopped nortriptyline and oxycodone Will be taking Tramadol when delivered from pharmacy today Feeling ''up and down'' Taking Baclofen most nights C/o constipation - reason for changing to Tramadol Having small bm daily but continues to have fullness and occasional abdominal pain Now eating Activia yogurt daily which finds helpful Has dulcolax to use prn Fluid status: 313lbs today Wt Readings from Last 7 Encounters: 11/22/22 (!) 142 kg (313 lb) 11/04/22 (!) 142 kg (313 lb) 11/01/22 (!) 143.8 kg (317 lb) 10/11/22 (!) 138.8 kg (306 lb) 09/29/22 (!) 140.5 kg (309 lb 12.8 oz) 09/23/22 (!) 140.6 kg (310 lb) 09/13/22 (!) 143 kg (315 lb 4.8 oz) lungs CTA Trace b/l le edema Breathing at baseline on 3lnc continuously Wearing CPAP nightly with o2 DM: Wearing Dexcom 273 this morning, confirmed with fingerstick Denies issues with high/low bsgs Continues to follow with MTM for management Physical Exam: LMP 03/11/2003 Pain 3 Physical Exam Constitutional: Appearance: She is obese. HENT: Head: Normocephalic and atraumatic. Cardiovascular: Rate and Rhythm: Normal rate and regular rhythm. Pulmonary: Effort: Pulmonary effort is normal. Breath sounds: No rales. Abdominal: General: Bowel sounds are normal. There is no distension. Palpations: Abdomen is soft. Tenderness: There is no abdominal tenderness. Musculoskeletal: Right lower leg: No edema. Left lower leg: No edema. Skin: General: Skin is warm and dry. Capillary Refill: Capillary refill takes less than 2 seconds. Coloration: Skin is not pale. Neurological: General: No focal deficit present. Mental Status: She is alert and oriented to person, place, and time. Mental status is at baseline. Gait: Gait abnormal. Problems/Symptoms: Review of Systems Constitutional: Negative. HENT: Negative for congestion. Eyes: Negative. Respiratory: Positive for shortness of breath (AVENDAÑO at baseline). Negative for cough. Cardiovascular: Negative for chest pain, palpitations and leg swelling. Gastrointestinal: Positive for constipation. Negative for abdominal distention, abdominal pain, blood in stool, diarrhea, nausea and vomiting. Endocrine: Negative. Genitourinary: Positive for dysuria. Negative for flank pain and hematuria. Musculoskeletal: Positive for arthralgias, back pain, gait problem and myalgias. Skin: Positive for color change (L 3rd toe). Allergic/Immunologic: Negative. Neurological: Positive for weakness. Negative for dizziness. Hematological: Bruises/bleeds easily. Psychiatric/Behavioral: Negative. Medication Reconciliation: (See medication list) Does patient take medications as ordered: Yes Patient Well Being: Has stopped driving d/t vertigo - was having when driving Sold car Has signed up for [facility] - has not yet used Getting groceries delivered [facility] Completed this Visit: No. Routine visit and No falls since last visit Advanced Care Planning: No documentation, updated today. Reinforcement/Education: . Reinforced safety education and fall prevention. and Reinforced medication regimen. Timing., Dosing. and Purspose. Treatment/Plan: INSTRUCT AT EACH VISIT: CALL [facility] PRIOR TO GOING TO ER FOR ANY REASON [facility] [address] DRY WT as of 08/03/22 - 313lbs Weigh daily and record Frequent UTI's - typically asymptomatic until has fever, has standing order for urine culture Ambulate with roller walker at ALL times o2 2lnc at rest, 4Lnc with activity - [facility] [phone] WEAR O2 AT ALL TIMES OR BECOMES WEAK AND FALLS cpap with 2l qhs Flutter valve 4x/day x10 days (needs to find) Apap, tramadol and topical pain relievers for [...] Care, including self-management and medication regimen Updated Advanced Care Planning Note Patient Needs to Remember: Call [facility] with red flags Referrals Needed: Other none Follow Up: Is there cellular connectivity/connectivity in the home? Yes Does the patient have internet in the home? Yes Patient encouraged to call the intake phone number for all urgent but not emergent issues. Is the patient new to [facility] within the last 30 days? No, Assess appropriateness for upcoming telehealth visits. Cancel telehealth visits & schedule home visit with care count team clerk(s)as indicated. Provider is in agreement with Plan of Care: Yes Scheduled to follow up with patient in 4 weeks. Brooke Jose RN 11/22/2022 9:50 AM documented in this encounter Miscellaneous Notes * ACP (Advance Care Planning) - Brooke Jose RN - 11/22/2022 10:25 AM EST Patient-centered Communication 11/22/2022 The patient/surrogate voluntarily agreed to participate in advance care planning discussion. They were advised that this is a separate service which may incur out of pocket cost in the form of copayment and/or deductibles. Location: Home Individual(s) present for conversation: Patient Decisions Contains data within 11/22/2022 to 11/22/2022 and each row's most recent data. Newer data is on the left. Synopsis [employer] Most Recent Value Past ~10 years 11/22/2022 [...] Newer data is on the left. Synopsis [employer] Most Recent Value Past ~10 years 11/22/2022 [...] Smart[employer] Most Recent Value Past ~10 years 07/01/2022 [...] a vegetable" (define below);Unable to feed themselves;Prolonged senior living stay (define below);Prolonged mechanical ventilation (define below);Prolonged hospital stay (define below) 03/24/2021 "Being a vegetable", patient defines as: no possible way that i can come back 03/24/2021 Prolonged hospital stay, patient defines as: no hope of ever gettig out of hospital 03/24/2021 Prolonged senior living stay, patient defines as: no hope of [...] data. Newer data is on the left. [employer] Most Recent Value Past ~10 years 11/22/2022 [...] data. Newer data is on the left. [employer] Most Recent Value Past ~10 years 03/24/2021 [...] data. Newer data is on the left. [employer] Most Recent Value Past ~10 years 03/24/2021 [...] data. Newer data is on the left. [employer] Most Recent Value Past ~10 years 01/12/2022 10:02 Non-invasive ventilation or BIPAP Their goals for Non-invasive ventilation or BIPAP treatment are: if it is short term 01/12/2022 if it is short term Newer data is on the left. Newer data is on the left. Contains data within 01/12/2022 to 01/12/2022 and each row's most recent data. Newer data is on the left. Synopsis [employer]Link Most Recent Value Past ~10 years 01/12/2022 10:02 IV hydration Their goals for IV hydration treatment are: short term only 01/12/2022 short term only Newer data is on the left. Newer data is on the left. Newer data is on the left. Newer data is on the left. Newer data is on the left. Newer data is on the left. Newer data is on the left. Newer data is on the left. Newer data is on the left. Source: Content from [facility] 10 minutes spent in direct [id number] discussion today, Brooke Jose RN documented in this encounter Plan of Treatment Upcoming Encounters Date Type Specialty Care Team Description 11/29/2022 Office Visit Family Medicine Galdino Andujar DO 293 [facility], [place] [address] 12/06/2022 Telemedicine [facility], Pharmacist 65 [facility] [place] 293 [facility], [place] [address] 12/24/2022 Home Visit [facility] Simi Martinez PA-C 132 [facility] [place] [address] 12/28/2022 Office Visit Nephrology Erik Lenz MD 200 [place] [address] 01/18/2023 Home Visit [facility] Brooke Jose RN 132 [place] [address] 01/19/2023 PulmDiagnostic Pulmonary Function [facility], Pft 132 [place] [address] 08/08/2023 Nurse Only [employer], Nurse Annual Wellness Visit [address] [facility] 293 [place] [address] Scheduled Procedures Name Priority Associated Diagnoses Date/Ti me COLONOSCOPY FLEXIBLE PROXIMAL DIAGNOSTIC Recall Colon cancer screening Health Maintenance Due Date Last Done Comments Cologuard: Ages 45-75 2000 FOBT: Ages 45-75 2000 Sigmoidoscopy: Ages 45-75 2000 COVID-19 Vaccine (5 - Booster for Pfizer series) 06/08/2022 2022, 10/01/2021, 01/08/2021, Additional history exists CKD PHOS USE SMARTSET 34929 01/07/202312/25, 03/12/2021, 11/17/2020, Additional history exists Mammogram 02/11/2023 02/11/2022, /02/2021, 07/10/2019, Additional history exists GFR - Renal Function 05/01/2023 11/01/2022, 09/13/2022, 08/13/2022, Additional history exists HgA1C 05/01/2023 11/01/2022, 04/26, 01/07/2022, Additional history exists DIABETES-EYE EXAM 05/24/2023 05/24/2022, , 04/07/2020, Additional history exists Albumin/Creatinine Ratio 11/01/2023 023, 01/07/2022, 05/24/2019, Additional history exists CKD HGB USE SMARTSET 57655 11/01/202311/01, 11/01/2022, 06/29/2022, Additional history exists DIABETES-FOOT [...] care planning/counseling discussion- Primary Other specified counseling documented in this encounter Advance Directives Documents on File Type Date Recorded Patient Master Dyer Expl anation POLST 03/19/2020 4:25 PM POLST [...] the patient have Health Care Power of International Logistics Coordinator? No Healthcare Agents on File Name Relationship Healthcare Agent Relationship Communication Galdino Camp Other - (no specific identity) Health Care Power of International Logistics Coordinator Princess Allen Other - (no specific identity) Health Care Power of International Logistics Coordinator Care Teams Gis Web Developer Relationship Specialty Start Date End Date Galdino Andujar DO [address] [place] [address] PCP - General Internal Medicine 01/07/22 documented as of this encounter
--- OUTSIDE RECORDS SUMMARY | 2023-06-01 04:18 | External Medical Summary | Summary of Care ---
Author Name Unknown Organization [facility] Address [address] [place] [address] Phone [phone] Care Team Providers Care Cooker Casing Name Role Phone Galdino Andujar DO Primary Care Provider [phone] Reason for Visit * Reason Onset Date Comments medication change 11/17/202211/17 Encounter Details Date Type Department Care Team Description 11/17/2022 Telephone Family Practice 65 [facility] [place] [address] [place] [address] Galdino Andujar DO 293 [place] [address] medication change (11/17) Allergies Active [...] goal of 7.0%-8.0% ([facility]) INJECT 60 UNITS UNDER THE SKIN EVERY [...] 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 Was able to get following information from [facility] pharmacist: Attestation from Dr. Andujar faxed to the two numbers above. Frances Duong, Pharm D, [facility] Clinical Pharmacist Medication Therapy [facility] 11/24/2022, 1:01 PM Ph. [phone] * Telephone Encounter - Frances Duong [facility] - 11/24/2022 12:30 PM EST Called back to [facility] and they have no record of Vickie Allen calling. * Telephone Encounter - ELISSA Silva - 11/24/2022 12:24 PM EST Tiffany [facility], calling to check the status of this message. She can be reached at [phone] * Telephone Encounter - Chasity Del Toro LPN - 11/24/2022 11:21 AM EST Received a call from Vickie at [facility] regarding prior auth for tramadol and [...] Drug Monitoring Program in compliance with the [facility] regulations before prescribing a controlled substance. [...] Pended tramadol script per CC'd chart from [facility]. Cancelled oxycodone. documented in this encounter Plan of Treatment Upcoming Encounters Date Type Specialty Care Team Description 11/26/2022 [facility], Pharmacist [address] [address] 11/29/2022 Office Visit Family Medicine Galdino Andujar DO 293 [facility] [address] 12/06/2022 Telemedicine [facility], Pharmacist [address] [place] [address] 12/24/2022 Home Visit [facility] Simi Martinez PA-C [address] [place] [address] 12/28/2022 Office Visit Nephrology Erik Lenz MD 200 [facility], [place] [address] 01/18/2023 Home Visit [facility] Brooke Jose, RN [facility] [address] 01/19/2023 PulmDiagnostic Pulmonary Function [facility], Pft 132 [facility] [place] [address] 08/08/2023 Nurse Only [employer]illary [employer], Nurse Annual Wellness Visit 65 [facility] 293 [facility], [place] [address] Scheduled Procedures Name Priority Associated Diagnoses Date/Ti me COLONOSCOPY FLEXIBLE PROXIMAL DIAGNOSTIC Recall Colon cancer screening Health Maintenance Due Date Last Done Comments Cologuard: Ages 45-75 2000 FOBT: Ages 45-75 2000 Sigmoidoscopy: Ages 45-75 2000 COVID-19 Vaccine (5 - Booster for Pfizer series) 06/08/2022 2022, 10/01/2021, 01/08/2021, Additional history exists CKD PHOS USE SMARTSET 74879 01/07/202312/25, 03/12/2021, 11/17/2020, Additional history exists Mammogram 02/11/2023 02/11/2022, 02/2021, 07/10/2019, Additional history exists GFR - Renal Function 05/01/2023 11/01/2022, 09/13/2022, 08/13/2022, Additional history exists HgA1C 05/01/2023 11/01/2022, 04/26, 01/07/2022, Additional history exists DIABETES-EYE EXAM 05/24/2023 05/24/2022, , 04/07/2020, Additional history exists Albumin/Creatinine Ratio 11/01/20232 023, 01/07/2022, 05/24/2019, Additional history exists CKD HGB USE SMARTSET 52551 11/01/202311/01, 11/01/2022, 06/29/2022, Additional history exists DIABETES-FOOT [...] Documents on File Type Date Recorded Patient Ship'S Cook Expl anation POLST 03/19/2020 4:25 PM POLST [...] the patient have Health Care Power of Bulldogger? No Healthcare Agents on File Name Relationship Healthcare Agent Relationship Communication Galdino Camp Other - (no specific identity) Health Care Power of Bulldogger Princess Allen Other - (no specific identity) Health Care Power of Bulldogger Care Teams Cooker Casing Relationship Specialty Start Date End Date Galdino Andujar, DO [address] [place] [address] PCP - General Internal Medicine 01/07/22 documented as of this encounter
--- OUTSIDE RECORDS SUMMARY | 2023-06-01 04:19 | External Medical Summary | Summary of Care ---
Author Name Unknown Organization [facility] Address [address] [place] [address] Phone [phone] Care Team Providers Care Airport Manager Name Role Phone ZiaandrewsGaldino DO Primary Care Provider [phone] Reason for Visit * Reason Onset Date Comments Appointment 11/23/2022 Encounter Details Date Type Department Care Team Description 11/23/2022 Telephone [facility], [place] [address] [place] [address] Services, Scheduling [address] [place] [address] Appointment (//) Allergies Active Allergy Reactions Severity [...] lpm continuous 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 Vaginal kamren 07/13/2018 08/26/2018 Hypervolemia 07/13/2018 08/26/2018 Heparin-induced thrombocytopenia [...] mRNA, LNP-s, No Pre serve, 2-Dose Series ([employer]) 01/08/2021,12/18/2020 COVID-19, LNP-s, No Preserve , Navarro-sucrose, Ages 12+ (Pfizer) 2022,10/01/2021 Pneumococcal Conjugate Vacci ne, 20-valent ([id number]) 03/12/2022 Pneumococcal Polysaccharide PPV23 (Pneumovax) 08/22/2009,06/15/2006 Seasonal [...] Miscellaneous Notes * Telephone Encounter - ELISSA Chaidez - 11/23/2022 12:09 PM EST Request from Thad Jose to move her appt on 12/20 out 4 wks and find an opening eomarch with A Urban instead. I called and talked to Mela reg 12/24@830 with A Urban ad 01/18@1230 w/Thad Jose and she was agreeable documented in this encounter Plan of Treatment Upcoming Encounters Date Type Specialty Care Team Description 11/29/2022 Office Visit Family Medicine Galdino Andujar, DO 293 [facility] [address] 12/06/[address] [facility], Pharmacist 65 [facility] 293 [place] [address] 12/24/2022 Home Visit [facility] Simi Martinez PA-C [address] [place] [address] 12/28/2022 Office Visit Nephrology Erik Lenz MD [facility] [place] [address] 01/18/2023 Home Visit [facility] Brooke Jose RN 132 [place] [address] 01/19/2023 PulmDiagnostic Pulmonary Function West, Pft 132 [place] [address] 08/08/2023 Nurse Only [employer]illary [employer], Nurse Annual Wellness Visit 65 [facility] 293 [place] [address] Scheduled Procedures Name Priority Associated Diagnoses Date/Ti me COLONOSCOPY FLEXIBLE PROXIMAL DIAGNOSTIC Recall Colon cancer screening Health Maintenance Due Date Last Done Comments Cologuard: Ages 45-75 2000 FOBT: Ages 45-75 2000 Sigmoidoscopy: Ages 45-75 2000 COVID-19 Vaccine (5 - Booster for Pfizer series) 06/08/2022 2022, 10/01/2021, 01/08/2021, Additional history exists CKD PHOS USE SMARTSET 29680 01/07/202312/25, 03/12/2021, 11/17/2020, Additional history exists Mammogram 02/11/2023 02/11/2022, 02/2021, 07/10/2019, Additional history exists GFR - Renal Function 05/01/2023 11/01/2022, 09/13/2022, 08/13/2022, Additional history exists HgA1C 05/01/2023 11/01/2022, 04/26, 01/07/2022, Additional history exists DIABETES-EYE EXAM 05/24/2023 05/24/2022, , 04/07/2020, Additional history exists Albumin/Creatinine Ratio 11/01/2023 023, 01/07/2022, 05/24/2019, Additional history exists CKD HGB USE SMARTSET 84797 11/01/202311/01, 11/01/2022, 06/29/2022, Additional history exists DIABETES-FOOT [...] Documents on File Type Date Recorded Patient Food Quality Technician Expl anation POLST 03/19/2020 4:25 PM [...] the patient have Health Care Power of Senior Marketing Associate? No Healthcare Agents on File Name Relationship Healthcare Agent Relationship Communication Galdino Camp Other - (no specific identity) Health Care Power of Senior Marketing Associate Princess Other - (no specific identity) Health Care Power of Senior Marketing Associate Care Teams Airport Manager Relationship Specialty Start Date End Date Galdino Andujar, DO [address] [place] [address] PCP - General Internal Medicine 01/07/22 documented as of this encounter
--- OUTSIDE RECORDS SUMMARY | 2023-06-01 04:19 | External Medical Summary | Summary of Care ---
Author Name Unknown Organization [place] [address] Care Team Providers Care Sheep Shearer Name Role Phone PratimaGaldino DO Primary Care Provider [phone] Reason for Visit * Reason Comments [facility]: Maintenance Encounter Details Date Type Department Care Team Description 11/04/2022 Home Visit Care Coordination [address] [place] [address] Mira Duong, Community Health Manufacturing Technologist [address] [place] [address] Allergies Active Allergy Reactions Severity Noted Date [...] as of this encounter (statuses as of 11/17/2022) Medications Medication Sig Dispensed Refills Start Date End Date Status DEMIAN DELFRANTZ LANCETS 33G MISC Check blood sugars 3-4 times daily 180 Each 5 08/01/2018 Active oxygen GASIndications:ELISSA (obstructive sleep apnea) 2 lpm continuous 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: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 60 Tablet 0 07/26/2022 Active Apixaban 5 MG Oral Tablet (Eliquis) [...] class 1 and CKD stage 3 ([facility]),Chronic diastolic congestive heart failure ([facility]) Take 1 Capsule (400 mg) by mouth in the morning and 1 Capsule (400 mg) before bedtime. 60 Capsule 5 08/25/2022 Active metFORMIN HCl ER 500 MG Oral Tablet Extended Release 24 Hour (Glucophage XR)Indications:Type 2 diabetes mellitus with hemoglobin A1c goal of less than 8.0% ([facility]) Take 1 Tablet (500 mg) by mouth in the morning. 30 Tablet 5 08/25/2022 Active Omeprazole 20 MG Oral Capsule Delayed ReleaseIndications:G astroesophageal reflux disease with esophagitis without hemorrhage Take 1 Capsule (20 mg) by mouth in the morning. 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 60 Tablet 1 09/02/2022 Active Levothyroxine Sodium 200 MCG Oral Tablet [...] when instructed. 120 Tablet 1 09/06/2022 Active clonazePAM 0.5 MG Oral Tablet (KlonoPIN)Indication s:Restless legs syndrome,Anxiety state Take 1 Tablet by mouth in the morning and 1 Tablet before bedtime. 60 Tablet 0 09/13/2022 Active traZODone HCl 100 MG Oral Tablet (Desyrel)Indications :Primary insomnia Take 1 Tablet by mouth at bedtime. 30 Tablet 5 09/29/2022 Active NovoLOG FlexPen 100 UNIT/ML Subcutaneous Solution Pen-injector (insulin aspart)Indications:T ype 2 diabetes mellitus with hemoglobin A1c goal of 7.0%-8.0% ([facility]) Inject 40-45 units with meals + sliding scale 1 units for every 25 units BG > 150. 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 Abnormality of gait 02/02/[address] [place] [address] 08/19/2014 History of pulmonary [...] as of this encounter (statuses as of 11/17/2022) Resolved Problems Problem Noted Date Resolved Date [...] as of this encounter (statuses as of 11/17/2022) Immunizations Name Administration Dates Next Due COVID-19 mRNA, LNP-s, No Pre serve, 2-Dose Series ([employer]) 01/08/2021,12/18/2020 COVID-19, LNP-s, No Preserve , Navarro-sucrose, Ages 12+ (Pfizer) 2022,10/01/2021 Pneumococcal Conjugate Vacci ne, 20-valent ([id number]) 03/12/2022 Pneumococcal Polysaccharide PPV23 (Pneumovax) 08/22/2009,06/15/2006 Seasonal [...] Sign Reading Time Taken Comments Blood Pressure 125/60 11/04/2022 1:49 PM EST Pulse 87 11/04/2022 1:49 PM EST Temperature 36.3 C (97.3 F) 11/04/2022 1:49 PM ES T Respiratory Rate - - Oxygen Saturation 97% 11/04/2022 1:49 PM EST Inhaled Oxygen Concentration - - Weight 142 kg (313 lb) 11/04/2022 1:49 PM EST Height - - Body Mass Index 52.09 11/01/2022 1:29 PM EST documented in this encounter Progress Notes * Galdino Andujar DO - 11/17/2022 8:30 AM EST Change Oxycodone to Tramadol 50 mg two times a day as needed * Mira Duong [facility] Health Manufacturing Technologist - 11/04/2022 12:50 PM EST Community Health Manufacturing Technologist Visit Date: 11/04/2022 Time: 12:51 PM Name: Stephanie Camp : 1955 Referral Source: instrumentation manager Source of Information: Patient Spoken language: swedish Patient can read in Jordanian: Yes. Print Production Associate needed: No. COVID-19 screening completed: Yes Vitals: Vital signs completed: Yes, vital signs within normal range. BP 125/60 | Pulse 87 | Temp 36.3 C (97.3 F) | Wt (!) 142 kg (313 lb) | LMP 03/11/2003 | SpO2 97% | BMI 52.09 kg/m | BSA 2.55 m Condition Changes: Changes in health or social status since last visit: no The patient has new concerns since last visit: No Patient is still in pain and would like to have Tramadol. Will contact PCP to see about changing pain medication. Progress towards goals since last visit: She has scales now and decaxacom. Patient's Goals of Care: Find Dexcom Find scale Unpack and organize apt Medications: Medication review completed? No, none requested Does the patient have barriers to medication adherence? No. Patient reports difficulty paying for medications or might in the future: No. Telehealth: This is a telehealth visit: No. Symptoms Surveys and Evaluations: MAHC10 completed this visit: Yes. Score is 4 or more? Yes, notified Provider/Racker Octave Board Last flowsheet values for MAHC10: Age 65+: 1 (11/04/2022 1:00 PM) Diagnosis (3 or more co-existing): 1 (11/04/2022 1:00 PM) Prior history of falls within 3 months: 0 (11/04/2022 1:00 PM) Incontinence: 0 (11/04/2022 1:00 PM) Visual impairment: 0 (11/04/2022 1:00 PM) Impaired functional mobility: 1 (11/04/2022 1:00 PM) Environmental hazards: 0 (11/04/2022 1:00 PM) Poly Pharmacy (4 or more prescriptions - any type): 1 (11/04/2022 1:00 PM) Pain affecting level of function: 1 (11/04/2022 1:00 PM) Cognitive impairment: 0 (11/04/2022 1:00 PM) Score - a score of 4 or more is considered at risk for fallin (11/04/2022 1:00 PM) Heart Failure Checklist A "good day" for the patient looks like every day. Today is different than a "good day": No Patient describes sleep as ok Normal The patient has been asked to track the amount of fluid they drink: Yes. Describe how patient tracks fluid volume: she uses a specific cup There is an [facility] scale in the home: No. Typically, the patient's meals look like breakfast-coffee or tea/cereal or toast Lunch-tea and peanut butter toast Dinner-balanced meal with veggie Patient's food choices are lower in sodium. Home Safety Does member identify any safety issues related to entering or exiting their home? No Does the patient need a wheelchair ramp to access the home? No Snow/ice removal assistance available? Yes Is there adequate lighting? Yes Are there railings on stairs? N/A Do sidewalks appear to be in good repair? Yes Does member identify any safety issues related to the interior of their home? No If durable medical equipment is used, halls and doorways easy to navigate? Yes Are there trip hazards in the home? No Are there working smoke detectors/CO2 detectors? Yes Is a health condition present or an air quality concern that an air conditioner or other coolingdevice will help? Yes Do stairs in the home have railings? [...] lives alone: Yes o Bathroom is located 1 o Bedroom is located 1 o Patient has to go up and down steps: No. Patient receives help from family/friends/neighbors/community agencies etc.: Yes. Type of help the patient receives: Transportation and picking up RX and food if needed Patient perceives the help they receive as adequate: o Yes. DME: o DME used: Walker, O2 and Shower chair o Patient has concerns related to DME: No. Financial: o Patient reports experiencing a financial hardship: No. Employment: o Patient is unemployed or without regular income: No. Utilities: o Patient reports difficulty paying heating, water, or electric bill: No. Transportation: o Patient drives: Yes. o Does anyone drive patient to appointments and shopping? No. o Patient receives community or public transportation assistance: Yes. Specify agency: [employer] sometimes o Patient reports trouble getting a ride to medical visits or work: Never True. Clothing: o Patient reports being unable to get clothing when it was really needed: No. Food insecurity: o Patient has concerns surrounding [...] lonely or isolated from those around you? Sometimes. Specify plan/referrals/care team members notified: Just because she does not get out much. Plan: Reinforced patient's three red flags by the care team 1. Unable to wear )2 for any reason 2. Wt increase to 337 3. Increased sob Reinforced pts red flags with LES. Pts weight is #313. She soul like to have Tramadol again for pain. Will contact PCP today to see if that can change as she can't wait until the end of the month to try to change medications. BSG #174 today Patient gets $215/mo with snap. Follow Up: Patient encouraged to call the intake phone number for all urgent but not emergent issues. Scheduled to follow up with patient as needed per CM. Mira Duong [facility] Health Manufacturing Technologist 11/04/2022 12:51 PM Electronically signed by Mira Duong Count Includes [facility] Manufacturing Technologist at 11/04/2022 2:27 PM EST documented in this encounter Plan of Treatment Upcoming Encounters Date Type Specialty Care Team Description 11/22/2022 Home Visit [facility] Brooke Jose, RN [address] [place] [address] 11/29/2022 Office Visit Family Medicine Galdino Andujar, [address] [place] [address] 11/29/2022 Home Visit Family Medicine Magaly Dean, Community Health Manufacturing Technologist [address] [place] [address] 12/06/2022 Telemedicine [facility], Pharmacist [address] [place] [address] 12/28/2022 Office Visit Nephrology Erik Lenz MD [address] [place] [place] [address] 01/19/2023 PulmDiagnostic Pulmonary Function [facility], Pft [address] [facility] [place] [address] 08/08/2023 Nurse Only [employer]illary [employer], Nurse Annual Wellness Visit [address] [place] [address] Scheduled Procedures Name Priority Associated Diagnoses Date/Ti me COLONOSCOPY FLEXIBLE PROXIMAL DIAGNOSTIC Recall Colon cancer screening Health Maintenance Due Date Last Done Comments Cologuard: Ages 45-75 2000 FOBT: Ages 45-75 2000 Sigmoidoscopy: Ages 45-75 2000 COVID-19 Vaccine (5 - Booster for Pfizer series) 06/08/2022 2022, 10/01/2021, 01/08/2021, Additional history exists CKD PHOS USE SMARTSET 83450 01/07/202312/25, 03/12/2021, 11/17/2020, Additional history exists Mammogram 02/11/2023 02/11/2022, 01/0 02/2021, 07/10/2019, Additional history exists GFR - Renal Function 05/01/2023 11/01/2022, 09/13/2022, 08/13/2022, Additional history exists HgA1C 05/01/2023 11/01/2022, 04/26, 01/07/2022, Additional history exists DIABETES-EYE EXAM 05/24/2023 05/24/2022, , 04/07/2020, Additional history exists Alb / Creat Ratio 11/01/2023 11/01/2022, , 05/24/2019, Additional history exists CKD HGB USE SMARTSET 88240 11/01/202311/01, 11/01/2022, 06/29/2022, Additional history exists DIABETES-FOOT [...] Documents on File Type Date Recorded Patient Boiler Inspector Expl anation POLST 03/19/2020 4:25 PM [...] the patient have Health Care Power of Fashion Director Party Plan Sales? No Healthcare Agents on File Name Relationship Healthcare Agent Relationship Communication Galdino Camp Other - (no specific identity) Health Care Power of Fashion Director Party Plan Sales Princess Allen Other - (no specific identity) Health Care Power of Fashion Director Party Plan Sales Care Teams Sheep Shearer Relationship Specialty Start Date End Date Galdino Andujar, DO [address] [place] [address] PCP - General Internal Medicine 01/07/22 documented as of this encounter
--- OUTSIDE RECORDS SUMMARY | 2023-06-01 04:19 | External Medical Summary | Summary of Care ---
Author Name Unknown Organization [place] [address] Care Team Providers Care C.O.D. Biller Name Role Phone Galdino Andujar DO Primary Care Provider [phone] Reason for Visit * Reason Comments eRx-Medication Refill Encounter Details Date Type Department Care Team Description 11/05/2022 Refill Family Practice [address] [place] [address] [place] [id number] Galdino Andujar DO [address] [place] [address] Restless legs syndrome; Anxiety state Allergies Active [...] as of this encounter (statuses as of 11/06/2022) Medications Medication Sig Dispensed Refills Start Date End Date Status DEMIAN BISWAS LANCETS 33G MISC Check blood sugars 3-4 times daily 180 Each 5 08/01/2018 Active oxygen GASIndications:ELISSA (obstructive sleep apnea) 2 lpm continuous 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:Community Relations Assistant 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 1 Each 0 04/08/2020 Active Blood Glucose Monitoring Suppl (UroSensTOUCH ULTRA 2) w/Device KIT Use to test BG values 1 Kit 0 05/20/2020 Active Acetaminophen 500 MG Oral Tablet Take 1 Tablet by mouth every 6 hours as needed. 0 Active CPAP every night at bedtime. 0 Active BD Pen Needle Short U/F 31G X 8 MM (Insulin Pen Needle) use five times daily 500 Each 3 11/04/2021 Active ExperimentTouch Ultra Blue In Vitro Strip (Glucose Blood) [...] goal of less than 8.0% ([facility]) Take 1 Tablet (500 mg) [...] A1c goal of 7.0%-8.0% ([facility]) Inject 40-45 units with meals + sliding scale 1 units for every 25 units BG > 150. 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 Abnormality of gait 02/02/[address] [place] [address] 08/19/2014 History of [...] as of this encounter (statuses as of 11/06/2022) Resolved Problems Problem Noted Date Resolved Date [...] as of this encounter (statuses as of 11/06/2022) Immunizations Name Administration Dates Next Due COVID-19 mRNA, LNP-s, No Pre serve, 2-Dose Series ([employer]) 01/08/2021,12/18/2020 COVID-19, LNP-s, No Preserve , Navarro-sucrose, Ages 12+ (Pfizer) 2022,10/01/2021 Pneumococcal Conjugate Vacci ne, 20-valent ([id number]) 03/12/2022 Pneumococcal Polysaccharide PPV23 (Pneumovax) 08/22/2009,06/15/2006 Seasonal [...] encounter Miscellaneous Notes * Telephone Encounter - Tiny Obando RPh - 11/06/2022 9:41 AM ESTRefused Prescriptions: Disp Refills clonazePAM 0.5 MG Oral Tablet (KlonoPIN) 60 Tab*0 Sig: TAKE 1 TABLET BY MOUTH IN THE MORNING AND AT BEDTIMERefused By: MARIA ALEJANDRA OBANDONReason for Refusal: Too soonReason for Refusal Comment: Filled 10/19 documented in this encounter Plan of Treatment Upcoming Encounters Date Type Specialty Care Team Description 11/22/2022 [facility] Visit [facility] [address] [facility] [address] 11/29/2022 Office Visit Family Medicine Galdino Andujar, [address] [place] [address] 11/29/2022 Home Visit Family Medicine Magaly Dean, Community Health Shrimp Peeling Machine Operator [address] [place] [address] 12/06/2022 Telemedicine [facility], Pharmacist [address] [place] [address] 12/28/2022 Office Visit Nephrology Erik Lenz MD [address] [place] [address] 01/19/2023 PulmDiagnostic Pulmonary Function [facility], Pft [address] [facility] [place] [address] 08/08/2023 Nurse Only [employer]illary [employer], Nurse Annual Wellness Visit [address] [place] [address] Scheduled Procedures Name Priority Associated Diagnoses Date/Ti me COLONOSCOPY FLEXIBLE PROXIMAL DIAGNOSTIC Recall Colon cancer screening Health Maintenance Due Date Last Done Comments Cologuard: Ages 45-75 2000 FOBT: Ages 45-75 2000 Sigmoidoscopy: Ages 45-75 2000 COVID-19 Vaccine (5 - Booster for Pfizer series) 06/08/2022 2022, 10/01/2021, 01/08/2021, Additional history exists CKD PHOS USE SMARTSET 24924 01/07/202312/25, 03/12/2021, 11/17/2020, Additional history exists Mammogram 02/11/2023 02/11/2022, 01/0 02/2021, 07/10/2019, Additional history exists GFR - Renal Function 05/01/2023 11/01/2022, 09/13/2022, 08/13/2022, Additional history exists HgA1C 05/01/2023 11/01/2022, 04/26, 01/07/2022, Additional history exists DIABETES-EYE EXAM 05/24/2023 05/24/2022, , 04/07/2020, Additional history exists Alb / Creat Ratio 11/01/2023 11/01/2022, , 05/24/2019, Additional history exists CKD HGB USE SMARTSET 56652 11/01/202311/01, 11/01/2022, 06/29/2022, Additional history exists DIABETES-FOOT [...] Documents on File Type Date Recorded Patient Branch Account Executive Expl anation POLST 03/19/2020 4:25 PM POLST [...] the patient have Health Care Power of Yoke Setter? No Healthcare Agents on File Name Relationship Healthcare Agent Relationship Communication Galdino Camp Other - (no specific identity) Health Care Power of Yoke Setter Princess Other - (no specific identity) Health Care Power of Yoke Setter Care Teams C.O.D. Biller Relationship Specialty Start Date End Date Galdino Andujar, DO [address] [place] [address] PCP - General Internal Medicine 01/07/22 documented as of this encounter
--- OUTSIDE RECORDS SUMMARY | 2023-06-01 04:19 | External Medical Summary | Summary of Care ---
Author Name Unknown Organization [place] [address] Care Team Providers Care Trading Manager Name Role Phone Lexii Andujar DO Primary Care Provider [phone] Reason for Visit * Reason Comments eRx-Medication Refill Encounter Details Date Type Department Care Team Description 11/15/2022 Refill [facility], [facility] [address] [place] [address] Lexii Andujar DO [address] [place] [address] Gastroesophageal reflux disease with esophagitis without hemorrhage; Fibromyalgia; Restless legs syndrome; Anxiety state Allergies [...] lpm continuous 0 0 Active DIURETIC TITRATION PLANIndications:Chr onic [...] of 7.0%-8.0% ([facility]) INJECT 60 UNITS UNDER THE [...] AT BEDTIME 60 Tablet 0 3 Active Baclofen 5 MG Oral Tablet (Lioresal)Indicatio ns:Fibromyalgia TAKE 1 TABLET BY MOUTH TWICE DAILY NEEDED FOR MUSCLE SPASMS 60 Tablet 1 3 Active Omeprazole 20 MG Oral Capsule Delayed ReleaseIndications: Gastroesophageal reflux disease with esophagitis without hemorrhage Take 1 Capsule (20 mg) by mouth in the morning. 30 Capsule 3 2 11/17/19 23 Discontinued Baclofen 5 MG Oral Tablet (Lioresal)Indicatio ns:Fibromyalgia Take 1 Tablet (5 mg) by mouth 2 times a day as needed for Muscle spasms. 60 Tablet 1 2 11/17/19 23 Discontinued clonazePAM 0.5 MG Oral Tablet (KlonoPIN)Indicatio ns:Restless legs syndrome,Anxiety state Take 1 Tablet by mouth in the morning and 1 Tablet before bedtime. 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 Abnormality of gait 02/02/[address] [place] [address] 08/19/2014 History of pulmonary [...] mRNA, LNP-s, No Pre serve, 2-Dose Series (flaregames) 01/08/2021,12/18/2020 COVID-19, LNP-s, No Preserve , Navarro-sucrose, Ages 12+ (Pfizer) 2022,10/01/2021 Pneumococcal Conjugate Vacci ne, 20-valent ([id number]) 03/12/2022 Pneumococcal Polysaccharide PPV23 (Pneumovax) 08/22/2009,06/15/2006 Seasonal [...] Telephone Encounter - Lexii Andujar DO - 11/17/2022 3:10 PM ESTSigned Prescriptions: Disp Refills Omeprazole 20 MG Oral Capsule Delayed Rele*30 Cap*3 Sig: TAKE 1 CAPSULE BY MOUTH ONCE DAILY IN THE MORNINGAuthorizing Provider: LEXII ANDUJAR clonazePAM 0.5 MG Oral Tablet (KlonoPIN) 60 Tab*0 Sig: TAKE 1 TABLET BY MOUTH IN THE MORNING AND AT BEDTIMEAuthorizing Provider: LEXII ANDUJAR Baclofen 5 MG Oral Tablet (Lioresal) 60 Tab*1 Sig: TAKE 1 TABLETBY MOUTH TWICE DAILY NEEDED FOR MUSCLE SPASMSAuthorizing Provider: LEXII ANDUJAR ARefused Prescriptions: Disp Refills Nortriptyline HCl 25 MG Oral Capsule (Sho*30 Cap*3 Sig: TAKE 1 CAPSULE BY MOUTH ONCE DAILY AT BEDTIMERefused By: SHIRA GROSS for Refusal: Other (comment below) * Telephone Encounter - Shira Gross LPN - 11/17/2022 2:55 PM ESTPending Prescriptions: Disp Refills Omeprazole 20 MG Oral Capsule Delayed Rele*30 Cap*3 Sig: TAKE 1 CAPSULE BY MOUTH ONCE DAILY IN THE MORNING clonazePAM 0.5 MG Oral Tablet (KlonoPIN) 60 Tab*0 Sig: TAKE 1 TABLET BY MOUTH IN THE MORNING AND AT BEDTIME Baclofen 5 MG Oral Tablet (Lioresal) 60 Tab*1 Sig: TAKE 1 TABLET BY MOUTH TWICE DAILY NEEDED FOR MUS LURDES SPASMS Refused Prescriptions: Disp Refills Nortriptyline HCl 25 MG Oral Capsule (Sho*30 Cap*3 Sig: TAKE 1 CAPSULE BY MOUTH ONCE DAILY AT BEDTIME Refused By: SHIRA GROSS Reason for Refusal: Other (comment below) * Telephone Encounter - Shira Koch Renato, CHUYITA - 11/17/2022 2:54 PM EST Patient is not currently taking the nortriptyline Pended medication. * Telephone Encounter - Lexii Andujar DO - 11/17/2022 2:51 PM ESTPending Prescriptions: Disp Refills Omeprazole 20 MG Oral Capsule Delayed Rele*30 Cap*3 Sig: TAKE 1 CAPSULE BY MOUTH ONCE DAILY IN THE MORNING Nortriptyline HCl 25 MG Oral Capsule [Phar*30 Cap*3 Sig: TAKE 1 CAPSULE BY MOUTH ONCE DAILY AT BEDTIME clonazePAM 0.5 MG Oral Tablet [Pharmacy Me*60 Tab*0 Sig: TAKE 1 TABLET BY MOUTH IN THE MORNING AND AT BEDTIME Baclofen 5 MG Oral Tablet [Pharmacy Med Na*60 Tab*1 Sig: TAKE 1 TABLET BY MOUTH TWICE DAILY NEEDED FOR MUSCLE SPASMS * Telephone Encounter - Ingrid ReneCHUYITA - 11/17/2022 1:44 PM ESTPending Prescriptions: Disp Refills Omeprazole 20 MG Oral Capsule Delayed Rele*30 Cap*3 Sig: TAKE 1 CAPSULE BY MOUTH ONCE DAILY IN THE MORNING Nortriptyline HCl 25 MG Oral Capsule [Phar*30 Cap*3 Sig: TAKE 1 CAPSULE BY MOUTH ONCE DAILY AT BEDTIME clonazePAM 0.5 MG Oral Tablet [Pharmacy Me*60 Tab*0 Sig: TAKE 1 TABLET BY MOUTH IN THE MORNING AND AT BEDTIME Baclofen 5 MG Oral Tablet [Pharmacy Med Na*60 Tab*1 Sig: TAKE 1 TABLET BY MOUTH TWICE DAILY NEEDED FOR MUSCLE SPASMS * Telephone Encounter - Ingrid Rene LPN - 11/17/2022 1:41 PM EST Did you pend patient's preferred pharmacy and medication before forwarding?yes Pharmacy: [facility] [address] Pending Prescriptions: Disp Refills Omeprazole 20 MG Oral Capsule Delayed Rel*30 Cap*3 Sig: TAKE 1 CAPSULE BY MOUTH ONCE DAILY IN THE MORNING Nortriptyline HCl 25 MG Oral Capsule (Alicia*30 Cap*3 Sig: TAKE 1 CAPSULE BY MOUTH ONCE DAILY AT BEDTIME clonazePAM 0.5 MG Oral Tablet (KlonoPIN) *60 Tab*0 Sig: TAKE 1 TABLET BY MOUTH IN THE MORNING AND AT BEDTIME Baclofen 5 MG Oral Tablet (Lioresal) [Pha*60 Tab*1 Sig: TAKE 1 TABLET BY MOUTH TWICE DAILY NEEDED FOR MUSCLE SPASMS Last Visit: Visit date not found (in office), 08/10/2022 (telemedicine) Next Visit: 11/22/2022 If no future appointments scheduled, and last appointment is greater than a year ago, please schedule patient for a follow-up appointment Last date the medication was ordered: Is this request for a controlled substance?No Urine Drug Screen:No results found. However, due to the size of the patient record, not all encounters were searched. Please check Results Review for a complete set of results. Patient Phone Numbers Labs: Lab Results Component Value Date/Time CREAT 1.6 (H) 11/01/2022 02:13 PM CREAT 1.54 (A) 12/26/2021 12:00 AM [...] PM HGBA1C 7.3 (H) 01/23/2020 11:11 AM Ingrid Rene LPN [facility] 11/17/2022,1:41 PM documented in this encounter Plan of Treatment Upcoming Encounters Date Type Specialty Care Team Description 11/22/2022 [facility] Visit [facility] [address] 11/29/2022 Office Visit Family Medicine Lexii Andujar, DO 293 [facility], [place] [address] 11/29/2022 Home Visit Family Medicine Magaly Dean, Community Health Timekeeper [address] [place] [address] 12/06/2022 Telemedicine [facility], [facility] [address] [address] 12/28/2022 Office Visit Nephrology Erik Lenz MD 200 [place] [address] 01/19/2023 PulmDiagnostic Pulmonary Function [place], Pft 132 [facility] [place] [address] 08/08/2023 Nurse Only [employer]illary College, Nurse Annual Wellness Visit [address] [address] Scheduled Procedures Name Priority Associated Diagnoses Date/Ti me COLONOSCOPY FLEXIBLE PROXIMAL DIAGNOSTIC Recall Colon cancer screening Health Maintenance Due Date Last Done Comments Cologuard: Ages 45-75 2000 FOBT: Ages 45-75 2000 Sigmoidoscopy: Ages 45-75 2000 COVID-19 Vaccine (5 - Booster for Pfizer series) 06/08/2022 2022, 10/01/2021, 01/08/2021, Additional history exists CKD PHOS USE SMARTSET 03117 01/07/202312/25, 03/12/2021, 11/17/2020, Additional history exists Mammogram 02/11/2023 02/11/2022, 02/2021, 07/10/2019, Additional history exists GFR - Renal Function 05/01/2023 11/01/2022, 09/13/2022, 08/13/2022, Additional history exists HgA1C 05/01/2023 11/01/2022, 04/26, 01/07/2022, Additional history exists DIABETES-EYE EXAM 05/24/2023 05/24/2022, , 04/07/2020, Additional history exists Albumin/Creatinine Ratio 11/01/2023 023, 01/07/2022, 05/24/2019, Additional history exists CKD HGB USE SMARTSET 33456 11/01/202311/01, 11/01/2022, 06/29/2022, Additional history exists DIABETES-FOOT [...] as of this encounter Visit Diagnoses Diagnosis Gastroesophageal reflux disease with esophagitis without hemorrhage Fibromyalgia Mylagia and myositis, unspecified Restless legs syndrome Restless legs syndrome (RLS) Anxiety state Anxiety state, unspecified documented in this encounter Advance Directives Documents on File Type Date Recorded Patient Grey Goods Tester Expl anation POLST 03/19/2020 4:25 PM POLST [...] the patient have Health Care Power of Automatic Oven Operator? No Healthcare Agents on File Name Relationship Healthcare Agent Relationship Communication Lexii Camp Other - (no specific identity) Health Care Power of Automatic Oven Operator Princess Allen Other - (no specific identity) Health Care Power of Automatic Oven Operator Care Teams Trading Manager Relationship Specialty Start Date End Date Lexii Andujar, [address] [place] [address] PCP - General Internal Medicine 01/07/22 documented as of this encounter
--- OUTSIDE RECORDS SUMMARY | 2023-06-01 04:19 | External Medical Summary | Summary of Care ---
Author Name Unknown Organization [place] [address] Care Team Providers Care Senior Qa Engineer Name Role Phone Galdino Andujar DO Primary Care Provider [phone] Reason for Visit * Reason Onset Date Comments medication change 11/17/202211/17 Encounter Details Date Type Department Care Team Description 11/17/2022 Telephone Family Practice 65 [facility], [place] [address] [place] [phone] Galdino Andujar DO [address] [place] [address] medication change (11/17) Allergies Active Allergy Reactions [...] lpm continuous 0 0 Active DIURETIC TITRATION PLANIndications:Ch ronic [...] goal of 7.0%-8.0% ([facility]) INJECT 60 UNITS UNDER THE [...] Active Levothyroxine Sodium 50 MCG Oral Tablet (Levoxyl)Macrinatio ns:Hyperparathyroi dism, secondary renal (HCC) TAKE 1 [...] 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 Cancelled oxycodone. documented in this encounter Plan of Treatment Upcoming Encounters Date Type Specialty Care Team Description 11/22/2022 Home Visit [facility] Brooke Jose, RN [address] [place], [place] [address] [address] 11/29/2022 Office Visit Family Medicine Galdino Andujar DO [address] [place] [address] 11/29/2022 Home Visit Family Medicine Magaly Dean, Community Health Deicer Repairer Pneumatic [address] [place] [address] 12/06/2022 Telemedicine [facility], Pharmacist 65 [facility] [address] [place] [address] 12/28/2022 Office Visit Nephrology Erik Lenz MD [address] [place] [address] 01/19/2023 PulmDiagnostic Pulmonary Function West, Pft [address] [place] [address] 08/08/2023 Nurse Only Ancillary College, Nurse Annual Wellness Visit 65 [facility] [address] [place], [place] [address] Scheduled Procedures Name Priority Associated Diagnoses Date/Ti me COLONOSCOPY FLEXIBLE PROXIMAL DIAGNOSTIC Recall Colon cancer screening Health Maintenance Due Date Last Done Comments Cologuard: Ages 45-75 2000 FOBT: Ages 45-75 2000 Sigmoidoscopy: Ages 45-75 2000 COVID-19 Vaccine (5 - Booster for Pfizer series) 06/08/2022 2022, 10/01/2021, 01/08/2021, Additional history exists CKD PHOS USE SMARTSET 86796 01/07/202312/25, 03/12/2021, 11/17/2020, Additional history exists Mammogram 02/11/2023 02/11/2022, 02/2021, 07/10/2019, Additional history exists GFR - Renal Function 05/01/2023 11/01/2022, 09/13/2022, 08/13/2022, Additional history exists HgA1C 05/01/2023 11/01/2022, 04/26, 01/07/2022, Additional history exists DIABETES-EYE EXAM 05/24/2023 05/24/2022, , 04/07/2020, Additional history exists Albumin/Creatinine Ratio 11/01/2023 023, 01/07/2022, 05/24/2019, Additional history exists CKD HGB USE SMARTSET 14335 11/01/202311/01, 11/01/2022, 06/29/2022, Additional history exists DIABETES-FOOT [...] Documents on File Type Date Recorded Patient Heat Treat Supervisor Expl anation POLST 03/19/2020 4:25 PM [...] the patient have Health Care Power of Aluminum Fabrication Supervisor? No Healthcare Agents on File Name Relationship Healthcare Agent Relationship Communication Galdino Camp Other - (no specific identity) Health Care Power of Aluminum Fabrication Supervisor Princess Allen Other - (no specific identity) Health Care Power of Aluminum Fabrication Supervisor Care Teams Senior Qa Engineer Relationship Specialty Start Date End Date Galdino Andujar, DO [address] [place] [address] PCP - General Internal Medicine 01/07/22 documented as of this encounter
--- OUTSIDE RECORDS SUMMARY | 2023-06-01 04:19 | External Medical Summary | Summary of Care ---
Author Name Unknown Organization [place] [address] Care Team Providers Care Traffic Control Officer Name Role Phone PratimaGaldino DO Primary Care Provider [phone] Reason for Visit * Reason Comments [facility]: Maintenance Encounter Details Date Type Department Care Team Description 11/04/2022 Home Visit Care Coordination [address] [place] [address] Mira Duong, Community Health Radiologic Technologist [address] [place] [address] Allergies Active Allergy Reactions Severity Noted Date [...] lpm continuous 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:Van 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 60 Capsule 5 08/25/2022 Active metFORMIN HCl ER 500 MG Oral Tablet Extended Release 24 Hour (Glucophage XR)Indications:Type 2 diabetes mellitus with hemoglobin A1c goal of less than 8.0% ([facility]) Take 1 Tablet (500 mg) by mouth [...] and CKD stage 3 ([facility]),Chronic diastolic congestive heart failure ([facility]) Take 1 Tablet (20 mEq) by mouth [...] A1c goal of 7.0%-8.0% ([facility]) Inject 40-45 units with meals + sliding scale 1 units for every 25 units BG > 150. 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 Abnormality of gait 02/02/[address] [place] [address] 08/19/2014 History of pulmonary [...] mRNA, LNP-s, No Pre serve, 2-Dose Series (Myrl) 01/08/2021,12/18/2020 COVID-19, LNP-s, No Preserve , Navarro-sucrose, Ages 12+ (Pfizer) 2022,10/01/2021 Pneumococcal Conjugate Vacci ne, 20-valent ([id number]) 03/12/2022 Pneumococcal Polysaccharide PPV23 (Pneumovax) 08/22/2009,06/15/2006 Seasonal [...] a day as needed * Mira Duong [facility] Radiologic Technologist - 11/04/2022 12:50 PM EST Community Health Radiologic Technologist Visit Date: 11/04/2022 Time: 12:51 PM Name: Stephanie Camp : 1955 Referral Source: assistant restaurant general manager Source of Information: Patient Spoken language: swedish Patient can read in Spanish: Yes. Pneudraulic Systems Mechanic needed: No. COVID-19 screening completed: Yes Vitals: [...] Score is 4 or more? Yes, notified Provider/Staffing Clerk Last flowsheet values for MAHC10: Age 65+: [...] or public transportation assistance: Yes. Specify agency: [employer] sometimes o Patient reports trouble getting a [...] patient as needed per CM. Mira Duong [facility] Radiologic Technologist 11/04/2022 12:51 PM Electronically signed by Mira Duong [facility] Radiologic Technologist at 11/04/2022 2:27 PM EST documented in this encounter Plan of Treatment Upcoming Encounters Date Type Specialty Care Team Description 11/22/2022 Home Visit [facility] Brooke Jose, RN [address] [place] [address] 11/29/2022 Office Visit Family Medicine Galdino Andujar, 293 [facility] [place] [address] 11/29/2022 Home Visit Family Medicine Magaly Dean, Community Health Radiologic Technologist [address] [place] [address] 12/06/2022 Telemedicine [facility], Pharmacist [address] [place] [address] 12/28/2022 Office Visit Nephrology Erik Lenz MD 200 [place] [address] 01/19/2023 PulmDiagnostic Pulmonary Function West, Pft [address] [facility] [place] [address] 08/08/2023 Nurse Only Ancillary College, Nurse Annual Wellness Visit [address] [place] [address] Scheduled Procedures Name Priority Associated Diagnoses Date/Ti me COLONOSCOPY FLEXIBLE PROXIMAL DIAGNOSTIC Recall Colon cancer screening Health Maintenance Due Date Last Done Comments Cologuard: Ages 45-75 2000 FOBT: Ages 45-75 2000 Sigmoidoscopy: Ages 45-75 2000 COVID-19 Vaccine (5 - Booster for Pfizer series) 06/08/2022 2022, 10/01/2021, 01/08/2021, Additional history exists CKD PHOS USE SMARTSET 11110 01/07/202312/25, 03/12/2021, 11/17/2020, Additional history exists Mammogram 02/11/2023 02/11/2022, 01/0 02/2021, 07/10/2019, Additional history exists GFR - Renal Function 05/01/2023 11/01/2022, 09/13/2022, 08/13/2022, Additional history exists HgA1C 05/01/2023 11/01/2022, 04/26, 01/07/2022, Additional history exists DIABETES-EYE EXAM 05/24/2023 05/24/2022, , 04/07/2020, Additional history exists Alb / Creat Ratio 11/01/2023 11/01/2022, , 05/24/2019, Additional history exists CKD HGB USE SMARTSET 74335 11/01/202311/01, 11/01/2022, 06/29/2022, Additional history exists DIABETES-FOOT [...] on File Type Date Recorded Patient Food Service Worker Hospital Expl anation POLST 03/19/2020 4:25 PM POLST [...] the patient have Health Care Power of Secret Service Agent? No Healthcare Agents on File Name Relationship Healthcare Agent Relationship Communication Galdino Camp Other - (no specific identity) Health Care Power of Secret Service Agent Princess Allen Other - (no specific identity) Health Care Power of Secret Service Agent Care Teams Traffic Control Officer Relationship Specialty Start Date End Date Galdino Andujar, DO [address] [facility] [place] [address] PCP - General Internal Medicine 01/07/22 documented as of this encounter
--- OUTSIDE RECORDS SUMMARY | 2023-06-01 04:19 | External Medical Summary | Summary of Care ---
Author Name Unknown Organization [place] [address] Care Team Providers Care Md Pediatric Allergist Name Role Phone Galdino Andujar DO Primary Care Provider [phone] Reason for Visit * Reason Comments [facility]: Maintenance Encounter Details Date Type Department Care Team Description 11/22/2022 [facility] Visit [facility], [facility] 132 [facility] [place] [address] Brooke Jose RN 132 [facility] [place] [address] Advanced care planning/counseling discussion* Allergies Active Allergy [...] as of this encounter (statuses as of 11/22/2022) Medications Medication Sig Dispensed Refills Start Date End Date Status DEMIAN DELFRANTZ LANCETS 33G MISC Check blood sugars 3-4 times daily 180 Each 5 08/01/2018 Active oxygen GASIndications:ELISSA (obstructive sleep apnea) 2 lpm continuous 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:Fire Pilot zahra diastolic congestive heart failure (HCC) If [...] A1c goal of 7.0%-8.0% ([facility]) INJECT 60 UNITS UNDER THE [...] as of this encounter (statuses as of 11/22/2022) Active Problems Problem Noted Date Food insecurity 11/08/2022 Overview: Per [facility] Protocol Type 2 diabetes mellitus wit [...] 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/31/2021 Atherosclerosis of [place] coronary arter 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 12/31/2021 [...] as of this encounter (statuses as of 11/22/2022) Resolved Problems Problem Noted Date Resolved Date [...] as of this encounter (statuses as of 11/22/2022) Immunizations Name Administration Dates Next Due COVID-19 mRNA, LNP-s, No Pre serve, 2-Dose Series (Hungrio) 01/08/2021,12/18/2020 COVID-19, LNP-s, No Preserve , Navarro-sucrose, Ages 12+ (Pfizer) 2022,10/01/2021 Pneumococcal Conjugate Vacci ne, 20-valent ([id number]) 03/12/2022 Pneumococcal Polysaccharide PPV23 (Pneumovax) 08/22/2009,06/15/2006 Seasonal [...] 11/22/2022 9:50 AM EST [facility] Pattern Gater Monthly Visit Date: 11/22/2022 Time: 9:50 AM Name: Stephanie Camp : 1955 Situation: return Background: [facility] Enrollment Date: 06/14/22- Focused Care (3-9 months) PMHx: [place] filter, CHF, CHF, DVT, venous insufficiency, vasculitis, CAD, carotid stenosis, chronic hypoxemic respiratory failure, ELISSA, o2 dependent, GERD, DM, Hx PE, spinal stenosis A1C 11/01/22: 6.9 PRIMARY CARE AT HOME OF 11/22/22, QUIT DRIVING Utilization: 07/16 - - [facility] Admission - falls, acute on chronic CHF, acute on chronic respiratory failure,cellulitis R hand d/t cat bite 07/29 - 03/17 - [facility] - acute on chronic resp fx with hypoxia, UTI, chronic diastolic HF, d/c home on doxycycline and cefdinir 09/06/22 - Acute [facility] HV -DTP initiated, keflex for cellulitis, urine culture was negative 09/19/22 - [facility] ER - abdominal pain, CT negative, no changes 10/11/22 - Acute visit for respiratory viral swab - negative 10/25/22 - Acute call to [facility] - n/v/d, vertigo Living Situation: alone in senior [facility] building [facility]: updated 11/22/22 [facility] Provider Visit: 08/10/22, 11/22/22 - message to [...] lb) 11/01/22 (!) 143.8 kg (317 lb) 01/16/23 (!) 138.8 kg (306 lb) 09/29/22 (!) [...] has not yet used Getting groceries delivered [facility]-10 Completed this Visit: No. Routine visit and No falls since last visit Advanced Care Planning: No documentation, updated today. Reinforcement/Education: . Reinforced safety education and fall prevention. and Reinforced medication regimen. Timing., Dosing. and Purspose. Treatment/Plan: INSTRUCT AT EACH VISIT: CALL [facility] PRIOR TO GOING TO ER FOR ANY REASON [facility] as of 08/03/22 - 313lbs Weigh daily and record Frequent UTI's - typically asymptomatic until has fever, has standing order for urine culture Ambulate with roller walker at ALL times o2 2lnc at rest, 4Lnc with activity - [facility] [phone] WEAR O2 AT ALL TIMES OR BECOMES [...] Planning Note Patient Needs to Remember: Call [facility] with red flags Referrals Needed: Other none Follow Up: Is there cellular connectivity/connectivity in the home? Yes Does the patient have internet in the home? Yes Patient encouraged to call the intake phone number for all urgent but not emergent issues. Is the patient new to [employer] within the last 30 days? No, Assess appropriateness for upcoming telehealth visits. Cancel telehealth visits & schedule home visit with care steam pressure chamber operator(s)as indicated. Provider is in agreement with [...] Newer data is on the left. Synopsis [employer] Most Recent Value Past ~10 years 11/22/2022 [...] Newer data is on the left. Synopsis [employer] Most Recent Value Past ~10 years 11/22/2022 [...] Newer data is on the left. Synopsis [employer] Most Recent Value Past ~10 years 07/01/2022 [...] a vegetable" (define below);Unable to feed themselves;Prolonged fpc stay (define below);Prolonged mechanical ventilation (define below);Prolonged hospital stay (define below) 03/24/2021 "Being a vegetable", patient defines as: no possible way that i can come back 03/24/2021 Prolonged hospital stay, patient defines as: no hope of ever gettig out of hospital 03/24/2021 Prolonged fpc stay, patient defines as: no hope of [...] Newer data is on the left. Synopsis [employer] Most Recent Value Past ~10 years 11/22/2022 [...] data. Newer data is on the left. [employer] Most Recent Value Past ~10 years 03/24/2021 [...] data. Newer data is on the left. [employer] Most Recent Value Past ~10 years 03/24/2021 [...] data. Newer data is on the left. [employer] Most Recent Value Past ~10 years 01/12/2022 [...] Choices Program 10 minutes spent in direct uani-dx-btah discussion today, Brooke Jose RN documented in this encounter Plan of Treatment Upcoming Encounters Date Type Specialty Care Team Description 11/29/2022 Office Visit Family Medicine Galdino Andujar DO [address] [place] [address] 12/06/2022 Telemedicine [facility], Pharmacist [address] [place] [address] 12/20/2022 Home Visit [facility] Brooke Jose, RN 132 [facility] [address] 12/28/2022 Office Visit Nephrology Erik Lenz MD 200 [place] [address] 01/19/2023 PulmDiagnostic Pulmonary Function West, Pft 132 [place] [address] 08/08/2023 Nurse Only Ancillary [place], Nurse Annual Wellness Visit [address] [place] [address] Scheduled Procedures Name Priority Associated Diagnoses Date/Ti me COLONOSCOPY FLEXIBLE PROXIMAL DIAGNOSTIC Recall Colon cancer screening Health Maintenance Due Date Last Done Comments Cologuard: Ages 45-75 2000 FOBT: Ages 45-75 2000 Sigmoidoscopy: Ages 45-75 2000 COVID-19 Vaccine (5 - Booster for Pfizer series) 06/08/2022 2022, 10/01/2021, 01/08/2021, Additional history exists CKD PHOS USE SMARTSET 60382 01/07/202312/25, 03/12/2021, 11/17/2020, Additional history exists Mammogram 02/11/2023 02/11/2022, 01/02/2021, 07/10/2019, Additional history exists GFR - Renal Function 05/01/2023 11/01/2022, 09/13/2022, 08/13/2022, Additional history exists HgA1C 05/01/2023 11/01/2022, 04/26, 01/07/2022, Additional history exists DIABETES-EYE EXAM 05/24/2023 05/24/2022, , 04/07/2020, Additional history exists Albumin/Creatinine Ratio 11/01/2023 023, 01/07/2022, 05/24/2019, Additional history exists CKD HGB USE SMARTSET 43975 11/01/202311/01, 11/01/2022, 06/29/2022, Additional history exists DIABETES-FOOT [...] Documents on File Type Date Recorded Patient Town Administrator Expl anation POLST 03/19/2020 4:25 PM [...] the patient have Health Care Power of Rotating Equipment Specialist? No Healthcare Agents on File Name Relationship Healthcare Agent Relationship Communication Galdino Camp Other - (no specific identity) Health Care Power of Rotating Equipment Specialist Princess Allen Other - (no specific identity) Health Care Power of Rotating Equipment Specialist Care Teams Md Pediatric Allergist Relationship Specialty Start Date End Date Galdino Andujar, DO [address] [place], [place] [id number] PCP - General Internal Medicine 01/07/22 documented as of this encounter
--- OUTSIDE RECORDS SUMMARY | 2023-06-01 04:19 | External Medical Summary | Summary of Care ---
Author Name Unknown Organization [place] [address] Care Team Providers Care Concessionist Name Role Phone Galdino Andujar DO Primary Care Provider Reason for Visit * Reason Comments [facility]: Maintenance Encounter Details Date Type Department Care Team Description 11/22/2022 [facility] Visit [facility], [facility] 132 [facility] [place] [address] Brooke Jose RN 132 [facility] [place] [address] Advanced care planning/counseling discussion* Allergies Active Allergy [...] lpm continuous 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:[place] [place] Quality Control Technician zahra diastolic congestive heart failure (HCC) [...] mellitus with hemoglobin A1c goal of 7.0%-8.0% ([facility]) INJECT 60 UNITS UNDER THE [...] NYHA class 1 and CKD stage 3 (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/31/2021 Atherosclerosis of [place] coronary arter 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 [...] mRNA, LNP-s, No Pre serve, 2-Dose Series (Outright) 01/08/2021,12/18/2020 COVID-19, LNP-s, No Preserve , Navarro-sucrose, Ages 12+ (Pfizer) 2022,10/01/2021 Pneumococcal Conjugate Vacci ne, 20-valent ([id number]) 03/12/2022 Pneumococcal Polysaccharide PPV23 (Pneumovax) 08/22/2009,06/15/2006 Seasonal [...] 11/22/2022 9:50 AM EST [facility] Product Applications Engineer Monthly Visit Date: 11/22/2022 Time: 9:50 AM Name: Stephanie Camp : 1955 Situation: return Background: [facility] Enrollment Date: 06/14/22- Focused Care (3-9 months) PMHx: [place] filter, CHF, CHF, DVT, venous insufficiency, vasculitis, CAD, carotid stenosis, chronic hypoxemic respiratory failure, ELISSA, o2 dependent, GERD, DM, Hx PE, spinal stenosis A1C 11/01/22: 6.9 PRIMARY CARE AT HOME OF 11/22/22, QUIT DRIVING Utilization: 07/16 - - [facility] Admission - falls, acute on chronic CHF, acute on chronic respiratory failure,cellulitis R hand d/t cat bite 07/29 - 03/17 - [facility] - acute on chronic resp fx with hypoxia, UTI, chronic diastolic HF, d/c home on doxycycline and cefdinir 09/06/22 - Acute [facility] HV -DTP initiated, keflex for cellulitis, urine culture was negative 09/19/22 - [facility] ER - abdominal pain, CT negative, no changes 10/11/22 - Acute visit for respiratory viral swab - negative 10/25/22 - Acute call to [facility] - n/v/d, vertigo Living Situation: alone in senior [facility] Medication Management: pill packs from [facility] ACP: updated 11/22/22 [facility] Provider Visit: 08/10/22, 11/22/22 - message [...] driving Sold car Has signed up for [employer] - has not yet used Getting groceries delivered [facility] Completed this Visit: No. Routine visit and No falls since last visit Advanced Care Planning: No documentation, updated today. Reinforcement/Education: . Reinforced safety education and fall prevention. and Reinforced medication regimen. Timing., Dosing. and Purspose. Treatment/Plan: INSTRUCT AT EACH VISIT: CALL [facility] PRIOR TO GOING TO ER FOR ANY REASON USES PILL PACKS FROM [address] [facility] WT as of 08/03/22 - 313lbs Weigh daily and record Frequent UTI's - typically asymptomatic until has fever, has standing order for urine culture Ambulate with roller walker at ALL times o2 2lnc at rest, 4Lnc with activity - [facility] [phone] WEAR O2 AT ALL TIMES OR BECOMES [...] Planning Note Patient Needs to Remember: Call [facility] with red flags Referrals Needed: Other none Follow Up: Is there cellular connectivity/connectivity in the home? Yes Does the patient have internet in the home? Yes Patient encouraged to call the intake phone number for all urgent but not emergent issues. Is the patient new to [employer] [facility] within the last 30 days? No, Assess appropriateness for upcoming telehealth visits. Cancel telehealth visits & schedule home visit with care presentation team member(s)as indicated. Provider is in agreement [...] Newer data is on the left. Synopsis [employer] Most Recent Value Past ~10 years 07/01/2022 [...] a vegetable" (define below);Unable to feed themselves;Prolonged mcc stay (define below);Prolonged mechanical ventilation (define below);Prolonged hospital stay (define below) 03/24/2021 "Being a vegetable", patient defines as: no possible way that i can come back 03/24/2021 Prolonged hospital stay, patient defines as: no hope of ever gettig out of hospital 03/24/2021 Prolonged mcc stay, patient defines as: no hope of [...] Newer data is on the left. Synopsis [employer] Most Recent Value Past ~10 years 11/22/2022 [...] data. Newer data is on the left. [employer] Most Recent Value Past ~10 years 03/24/2021 [...] data. Newer data is on the left. [employer] Most Recent Value Past ~10 years 03/24/2021 [...] data. Newer data is on the left. [employer] Most Recent Value Past ~10 years 01/12/2022 [...] Choices Program 10 minutes spent in direct qtrl-ze-rexd discussion today, Brooke Jose RN documented in this encounter Plan of Treatment Upcoming Encounters Date Type Specialty Care Team Description 11/29/2022 Office Visit Family Medicine Galdino Andujar DO 293 [place] [address] 12/06/2022 Telemedicine [facility], Pharmacist [address] [address] 12/20/2022 Home Visit [facility] Brooke Jose RN 132 [place] [address] 12/28/2022 Office Visit Nephrology Erik Lenz MD 200 [place] [address] 01/19/2023 PulmDiagnostic Pulmonary Function West, Pft 132 [facility] [place] [address] 08/08/2023 Nurse Only Ancillary [place], Nurse Annual Wellness Visit [address] [place] [address] Scheduled Procedures Name Priority Associated Diagnoses Date/Ti me COLONOSCOPY FLEXIBLE PROXIMAL DIAGNOSTIC Recall Colon cancer screening Health Maintenance Due Date Last Done Comments Cologuard: Ages 45-75 2000 FOBT: Ages 45-75 2000 Sigmoidoscopy: Ages 45-75 2000 COVID-19 Vaccine (5 - Booster for Pfizer series) 06/08/2022 2022, 10/01/2021, 01/08/2021, Additional history exists CKD PHOS USE SMARTSET 50182 01/07/202312/25, 03/12/2021, 11/17/2020, Additional history exists Mammogram 02/11/2023 02/11/2022, 01/0 02/2021, 07/10/2019, Additional history exists GFR - Renal Function 05/01/2023 11/01/2022, 09/13/2022, 08/13/2022, Additional history exists HgA1C 05/01/2023 11/01/2022, 04/26, 01/07/2022, Additional history exists DIABETES-EYE EXAM 05/24/2023 05/24/2022, , 04/07/2020, Additional history exists Albumin/Creatinine Ratio 11/01/2023 023, 01/07/2022, 05/24/2019, Additional history exists CKD HGB USE SMARTSET 21843 11/01/202311/01, 11/01/2022, 06/29/2022, Additional history exists DIABETES-FOOT [...] on File Type Date Recorded Patient Track Sweeper Expl anation POLST 03/19/2020 4:25 PM POLST [...] the patient have Health Care Power of Production Line Welder? No Healthcare Agents on File Name Relationship Healthcare Agent Relationship Communication Galdino Camp Other - (no specific identity) Health Care Power of Production Line Welder Princess Allen Other - (no specific identity) Health Care Power of Production Line Welder Care Teams Concessionist Relationship Specialty Start Date End Date Galdino Andujar, DO [address] [place] [address] PCP - General Internal Medicine 01/07/22 documented as of this encounter
--- OUTSIDE RECORDS SUMMARY | 2023-06-01 04:19 | External Medical Summary | Summary of Care ---
Author Name Unknown Organization [place] [address] Care Team Providers Care Custodial Supervisor Name Role Phone Galdino Andujar DO Primary Care Provider [phone] Reason for Visit * Reason Onset Date Comments Information 11/17/2022 Encounter Details Date Type Department Care Team Description 11/17/2022 Telephone Family Practice 65 [facility] [place] 293 [place] [address] Galdino Andujar DO 293 [place] [address] Information (/) Allergies Active Allergy Reactions Severity Noted [...] as of this encounter (statuses as of 11/18/2022) Medications Medication Sig Dispensed Refills Start Date End Date Status DEMIAN BISWAS LANCETS 33G MISC Check blood sugars 3-4 times daily 180 Each 5 08/01/2018 Active oxygen GASIndications:ELISSA (obstructive sleep apnea) 2 lpm continuous 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:Cigar Packer And Sorter 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/31/2021 Atherosclerosis of [place] coronary arter 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 12/31/2021 [...] as of this encounter (statuses as of 11/18/2022) Resolved Problems Problem Noted Date Resolved Date [...] as of this encounter (statuses as of 11/18/2022) Immunizations Name Administration Dates Next Due COVID-19 mRNA, LNP-s, No Pre serve, 2-Dose Series (ESTmob) 01/08/2021,12/18/2020 COVID-19, LNP-s, No Preserve , Navarro-sucrose, Ages 12+ (Pfizer) 2022,10/01/2021 Pneumococcal Conjugate Vacci ne, 20-valent ([id number]) 03/12/2022 Pneumococcal Polysaccharide PPV23 (Pneumovax) 08/22/2009,06/15/2006 Seasonal [...] Encounter - Shira Gross LPN - 11/17/2022 3:10 PM EST Patient is no longer taking pamelor, pended medication was sent to Dr Andujar and taken out of refills. Being sent as fyi, thank you Thank you documented in this encounter Plan of Treatment Upcoming Encounters Date Type Specialty Care Team Description 11/22/2022 Home Visit [facility] Brooke Jose, RN 132 [facility] [place] [address] 11/29/2022 Office Visit Family Medicine Galdino Andujar, DO 293 [place] [address] 11/29/2022 Home Visit Family Medicine Magaly Dean, [employer] Usher [address] [place] [address] 12/06/2022 Telemedicine [facility], Pharmacist [address] [place] [address] 12/28/2022 Office Visit Nephrology Erik Lenz MD 200 [place] [address] 01/19/2023 PulmDiagnostic Pulmonary Function West, Pft 132 [facility] [place] [address] 08/08/2023 Nurse Only Ancillary [employer], Nurse Annual Wellness Visit [address] [place] [address] Scheduled Procedures Name Priority Associated Diagnoses Date/Ti me COLONOSCOPY FLEXIBLE PROXIMAL DIAGNOSTIC Recall Colon cancer screening Health Maintenance Due Date Last Done Comments Cologuard: Ages 45-75 2000 FOBT: Ages 45-75 2000 Sigmoidoscopy: Ages 45-75 2000 COVID-19 Vaccine (5 - Booster for Pfizer series) 06/08/2022 2022, 10/01/2021, 01/08/2021, Additional history exists CKD PHOS USE SMARTSET 05363 01/07/202312/25, 03/12/2021, 11/17/2020, Additional history exists Mammogram 02/11/2023 02/11/2022, 02/2021, 07/10/2019, Additional history exists GFR - Renal Function 05/01/2023 11/01/2022, 09/13/2022, 08/13/2022, Additional history exists HgA1C 05/01/2023 11/01/2022, 04/26, 01/07/2022, Additional history exists DIABETES-EYE EXAM 05/24/2023 05/24/2022, , 04/07/2020, Additional history exists Albumin/Creatinine Ratio 11/01/2023 023, 01/07/2022, 05/24/2019, Additional history exists CKD HGB USE SMARTSET 34202 11/01/202311/01, 11/01/2022, 06/29/2022, Additional history exists DIABETES-FOOT [...] Documents on File Type Date Recorded Patient Bowling Alley Operator Expl anation POLST 03/19/2020 4:25 PM [...] the patient have Health Care Power of Operations Supervisor 2Nd Shift? No Healthcare Agents on File Name Relationship Healthcare Agent Relationship Communication Galdino Camp Other - (no specific identity) Health Care Power of Operations Supervisor 2Nd Shift Princess Allen Other - (no specific identity) Health Care Power of Operations Supervisor 2Nd Shift Care Teams Custodial Supervisor Relationship Specialty Start Date End Date Galdino Andujar, DO [address] [place] [address] PCP - General Internal Medicine 01/07/22 documented as of this encounter
--- OUTSIDE RECORDS SUMMARY | 2023-06-01 04:20 | External Medical Summary ---
Author Name Unknown Address Unknown Organization K01:[facility] [address] [place] [address] Laboratory Report Ordering Provider Test Date Status JAG SHULTZ 11/01/2022 14:13:01 Final Observation Date Value Abnormality Reference (Units ) Status HbA1C 11/01/2022 14:13:01 6.9 Above high normal 4. 0-5.6 (%) Final Performing Location [facility] - [address] [place] [address]
--- OUTSIDE RECORDS SUMMARY | 2023-06-01 04:20 | External Medical Summary ---
Author Name Unknown Address Unknown Organization K01:[facility] - [address] [facility] [facility] [address] Laboratory Report Ordering Provider Test Date Status JAG SHULTZ 11/01/2022 14:13:01 Final Observation Date Value Abnormality Reference (Units ) Status SYNC LEUKOCYTES IN BLOOD BY AUTOMATED COUNT 11/01/2022 14:13:01 11.31 Above high normal 4.00-10.80 (K/uL) Final Segs 11/01/2022 14:13:01 68.9 40.0-75.0 (%) Final Lymphs % 11/01/2022 14:13:01 20.2 18.0-42.0 (%) Final Monos 11/01/2022 14:13:01 5.4 1.0-11.0 (%) Final Eosinophils 11/01/2022 14:13:01 3.3 0.0-6.0 (%) Final Basos 11/01/2022 14:13:01 0.6 0.0-2.0 (%) Final Immature Granulocyte, Percent 11/01/2022 14:13:01 1.6 0.0-2.0 (%) Final Absolute Segs 11/01/2022 14:13:01 7.80 Above high normal 1.80-7.70 (K/uL) Final Lymphs, absolute 11/01/2022 14:13:01 2.28 1.00-4.80 (K/ul) Final Monos, Abs 11/01/2022 14:13:01 0.61 0.00-1.10 (K/uL) Final Eos, Abs 11/01/2022 14:13:01 0.37 0.00-0.70 (K/uL) Final Basos, Abs 11/01/2022 14:13:01 0.07 0.00-0.20 (K/uL) Final Immature Granulocytes, Number 11/01/2022 14:13:01 0.18 0.00-0.20 (K/uL) Final Performing Location [facility] [place] [address] [facility] [address]
--- OUTSIDE RECORDS SUMMARY | 2023-06-01 04:20 | External Medical Summary ---
Author Name Unknown Address Unknown Organization K01:[facility] [place] [address] [place] [address] Laboratory Report Ordering Provider Test Date Status JAG SHUTLZ 11/01/2022 14:13:01 Final Observation Date Value Abnormality Reference (Units ) Status 25-OH Vitamin D total 11/01/2022 14:13:01 34 >19 (ng/mL) Final Performing Location [facility] - [address] [place] [address]
--- OUTSIDE RECORDS SUMMARY | 2023-06-01 04:20 | External Medical Summary | Summary of Care ---
Author Name Unknown Organization [place] [address] Care Team Providers Care Checker/Stocker Name Role Phone Galdino Andujar DO Primary Care Provider [phone] Reason for Visit * Reason Comments Follow Up Encounter Details Date Type Department Care Team Description 11/01/2022 Office Visit Family Practice [address] [place] [address] [place] [address] Galdino Andujar DO [address] [place] [address] 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 3b chronic kidney disease (HCC)*; Type 2 diabetes mellitus with stage 3b chronic kidney disease, with long-term current use of insulin (HCC); DM type 2 nursing care encounter ([facility]); Recurrent deep vein thrombosis (DVT) of both lower extremities (HCC); Chronic hypoxemic respiratory failure ([facility]); ILD (interstitial lung disease) ([facility]); Postsurgical hypothyroidism; Essential hypertension with goal blood pressure less than 140/90; Statin intolerance; Restless legs syndrome; Gastroesophageal reflux disease with esophagitis without hemorrhage; Primary osteoarthritis of left knee; Spinal stenosis of lumbar region without neurogenic claudication; Atherosclerosis of [place] coronary artery of [place] heart without angina pectoris; Anxiety state; Frank filter in place; Vitamin D deficiency Allergies Active Allergy Reactions Severity Noted Date [...] as of this encounter (statuses as of 11/01/2022) Medications Medication Sig Dispensed Refills Start Date End Date Status ONETOUCH DELICA LANCETS 33G MISC Check blood sugars 3-4 times daily 180 Each 5 08/01/2018 Active oxygen GASIndications:ELISSA (obstructive sleep apnea) 2 lpm continuous 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:Chr onic [...] SKIN IN THE EVENING, Reported on 11/01/2022 oxyCODONE-Acetamino phen 5-325 MG Oral Tablet (Percocet)Indicatio ns:Lumbar radiculopathy,Spina l stenosis of lumbar region without neurogenic claudication [...] 8.0% ([facility]) Take 1 Tablet (500 mg) by [...] 08/31/2022 Active Baclofen 5 MG Oral Tablet (Lioresal)Indicatio [...] 09/06/2022 Active clonazePAM 0.5 MG Oral Tablet (KlonoPIN)Indicatio [...] > 150. 121 mL 3 10/04/2022 Active Gabapentin 100 MG Oral Capsule (Neurontin)Indicati ons:Fibromyalgia,Re stless legs syndrome Take 2 Capsules (200 mg) by mouth at bedtime. 60 Capsule 5 08/25/2022 3 Discontinu ed(Medicat ion/Dose Changed) documented as of this encounter (statuses as of 11/01/2022) Active Problems Problem Noted Date Type 2 [...] 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/31/2021 Atherosclerosis of [place] coronary arter 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 [...] percocet BID prn. Abnormality of gait 02/02/[address] [address] 08/19/2014 History of pulmonary [...] as of this encounter (statuses as of 11/01/2022) Resolved Problems Problem Noted Date Resolved Date [...] as of this encounter (statuses as of 11/01/2022) Immunizations Name Administration Dates Next Due COVID-19 mRNA, LNP-s, No Pre serve, 2-Dose Series (PushCoin) 01/08/2021,12/18/2020 COVID-19, LNP-s, No Preserve , Navarro-sucrose, Ages 12+ (Pfizer) 2022,10/01/2021 Pneumococcal Conjugate Vacci ne, 20-valent (Idaynke29) 03/12/2022 Pneumococcal Polysaccharide PPV23 (Pneumovax) 08/22/2009,06/15/2006 Seasonal [...] Sign Reading Time Taken Comments Blood Pressure 136/60 11/01/2022 1:29 PM EST Pulse 94 11/01/2022 1:29 PM EST Temperature 36 C (96.8 F) 11/01/2022 1:29 PM EST Respiratory Rate 16 11/01/2022 1:29 PM EST Oxygen Saturation 97% 11/01/2022 1:29 PM EST Inhaled Oxygen Concentration - - Weight 143.8 kg (317 lb) 11/01/2022 1:29 PM EST Height 165.1 cm (5' 5") 11/01/2022 1:29 PM EST Body Mass Index 52.75 11/01/2022 1:29 PM EST documented in this encounter Patient Instructions * Patient Instructions* Shira Gross LPN - 11/01/2022 1:28 PM EST Diabetes: Keeping Feet Healthy Inspect your feet every day for signs of a problem. Diabetes can damage nerves in your feet and cause neuropathy. This condition makes it hard for you to feel injuries or sore spots. Diabetes can also change blood flow, making it harder for small problems, like a blister, to heal properly. In fact, minor injuries can quickly become serious infections that send you to the hospital. Practice self-care to protect your feet and keep them healthy. Take Special Care Inspect your feet daily for problems such as redness, blisters, cracks, dry skin, or numbness. Use a mirror to see the bottoms of your feet. Or, ask for help. Manage your diabetes. Monitor and control your blood sugar. Take all your medications as prescribed. Avoid walking barefoot, even indoors. Wash your feet with warm water and mild soap. Dry well, especially between toes. Dont treat corns or calluses yourself. Talk to your doctor or tabulating clerk (a doctor who specializes in foot care) if you need assistance trimming your toenails. Use moisturizing cream or lotion if you have dry skin, but dont use it between toes. Dont use heating pads on your feet. If you have neuropathy, you could get a burn and not feel it. Stop smoking. Smoking restricts blood flow and can make it harder for wounds to heal. Have Regular Checkups Foot problems can develop quickly. So be sure to follow your healthcare teams schedule for regular checkups. During office visits, take off your shoes and socks as soon as you get in the exam room. Ask your healthcare provider to examine your feet for problems. This will make it easier to find and treat small skin irritations before they get worse. Regular checkups can also help keep track of the blood flow and feeling in your feet. If you have neuropathy, you may need to have checkups more often. Wear Proper Footwear Wearing proper footwear is very important. If areas of your feet have been damaged by too much pressure, your healthcare provider may recommend changing your footwear. In some cases, avoiding high heels or tight work boots may be all thats needed. Or, your healthcare provider may recommend special shoes or custom inserts. These help protect your feet and keep existing irritations from getting worse. If you need special footwear, ask your healthcare provider if you qualify for [employer] diabetic shoe program. Make Sure Shoes and Socks Fit Any pair of shoes--new or old--should feel comfortable as soon as you put them on. There shouldnt be any rubbing when you walk. Wear the right shoe for any activity. For instance, a running shoe is designed to keep your feet injury-free while jogging. Buy shoes at the end of the day, when your feet are larger. Make sure they provide support without feeling too loose. Make sure your socks fit, t oo. Wear soft, seamless, well-padded socks for activity. Cotton or microfiber socks are best to help to absorb sweat. To protect your feet, avoid shoes that are open-toed or open-heeled. If you have questions about what kinds of shoes and socks are best, talk to your healthcare team. Get Regular Exercise Regular exercise improves blood flow in your feet. It also increases foot strength and flexibility.Gentle exercises, like walking or riding a stationary bicycle, are best. You can also do special foot exercises. Just be sure to talk with your healthcare provider before starting any exercise program. Also mention if any exercise causes pain, redness, or other signs of foot problems. Note: If you have any kind of break in the skin of your foot or ankle, keep the area clean. Then call your doctor--especially if the area doesnt appear to be healing. [id number] [employer] [address] [place] [address], [place] [address]. All rights reserved. This information is not intended as a substitute for professional medical care. Always follow your healthcare professional's instructions. documented in this encounter Progress Notes * Shira Gross LPN - 11/01/2022 2:24 PM EST Called Romelia brandt and asked to remove gabapentin from pill pack refills used for compliance. * Galdino Andujar DO - 11/01/2022 1:57 PM EST SUBJECTIVE: Stephanie Camp is a 67 year old female. Chief Complaint Patient presents with Follow Up HPI: Patient is a 67 year old female with a history of DM type II, CKD stage III, diastolic CHF, chronichypoxic respiratory failure, HTN, recurrent DVT, IVC filter, hyperlipidemia, statin intolerance, GERD, lumbar lumbar disc disease,restless leg syndrome, sleep apnea on CPAP, heparin induced thrombocyt openia, and ambulatory dysfunction that is seen for follow up. Weight is up. Chronic shortness of breath is stable. No chest pain is present. Leg swelling is stable. Patient Active Problem List [...] Z79.899 Chronic diastolic congestive heart failure ([facility]) I50.32 Lumbar radiculopathy M54.16 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 pprwe7z chronic kidney disease ([facility]) I13.0, I50.32, N18.32 Hyperparathyroidism, secondary renal ([facility]) N25.81 Vasculitis ([facility]) I77.6 Primary osteoarthritis of left knee M17.12 Spinal stenosis of lumbar region without neurogenic claudication M48.061 Heparin 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) D75.829 Atherosclerosis of [place] coronary arter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 I25.10 Carotid artery stenosis, asymptomatic, right I65.21 Encounter for long-term (current) use of other medications Z79.899 Type 2 diabetes mellitus with stage 3b chronic kidney disease ([facility]) E11.22, N18.32 Type 2 diabetes mellitus with hemoglobin A1c goal of less than 8.0% ([facility]) E11.9 Recurrent deep vein thrombosis (DVT) of both lower extremities ([facility]) I82.403 Chronic hypoxemic respiratory failure ([facility]) J96.11 Chronic kidney disease, stage 3b ([facility]) N18.32 ILD (interstitial lung disease) ([facility]) J84.9 Moderate episode of recurrent major depressive disorder ([facility]) F33.1 Primary osteoarthritis of both knees M17.0 Type 2 diabetes mellitus with stage 3b chronic kidney disease, with long- term current use of insulin ([facility]) E11.22, N18.32, Z79.4 Anxiety state F41.1 Sacroiliitis, not elsewhere classified ([facility]) M46.1 Current Outpatient Medications Medication Sig Dispense Refill oxygen GAS 2 lpm continuous Acetaminophen 500 MG Oral Tablet Take 1 [...] THE SKIN IN THEEVENING) 60 mL 3 oxyCODONE-Acetaminophen 5-325 MG Oral Tablet (Percocet) Take by mouth 1 Tablet every 12 hours as needed for Pain, Severe. 60 Tablet 0 Apixaban 5 MG Oral Tablet (Eliquis) Take [...] mouth in the morning. 30 Tablet 5 Omeprazole 20 MG Oral Capsule Delayed Release Take 1 Capsule (20 mg) by mouth in the morning. 30 Capsule 3 Potassium Chloride ER 20 MEQ Oral Tablet [...] DAY OR OTHER MEDICATIONS 100 Tablet 1 Baclofen 5 MG Oral Tablet (Lioresal) Take 1 Tablet (5 mg) by mouth 2 times a day as needed for Muscle spasms. 60 Tablet 1 Levothyroxine Sodium 200 MCG Oral [...] three days when instructed. 120 Tablet 1 clonazePAM 0.5 MG Oral Tablet (KlonoPIN) Take 1 Tablet by mouth in the morning and 1 Tablet before bedtime. 60 Tablet 0 traZODone HCl 100 MG Oral Tablet (Desyrel) Take 1 Tablet by mouth at bedtime. 30 Tablet 5 NovoLOG FlexPen 100 UNIT/ML Subcutaneous Solution Pen-injector (insulin aspart) Inject 40-45 units with meals + sliding scale 1 units for every 25 units BG > 150. 121 mL 3 ONETOUCH DELICA LANCETS 33G MISC Check blood [...] History: Diagnosis Date ELSIE (acute kidney injury) ([facility]) 06/12/2018 Allergic rhinitis due to other allergen Chronic hypoxemic respiratory failure ([facility]) 01/07/2022 Diverticulosis of colon 01/28/2006 Essential hypertension with goal blood pressure less than 140/90 02/22/2014 ELLIE (generalized anxiety disorder) 09/13/2009 Goiter [place] filter in place 08/19/2014 Heparin-induced thrombocytopenia 08/22/2009 History of pulmonary embolus (PE) 07/16/2014 HTN, goal below 140/90 Impetigo 09/27/2018 Obesity, BMI not known Perforation of intestine ([facility]) 1996 COLON -- 1996 Pneumonia in aspergillosis(484.6) 09/14/2009 Recurrent deep vein thrombosis (DVT) of both lower extremities ([facility]) 01/07/2022 Sleep apnea, obstructive Spinal stenosis of lumbar region without neurogenic claudication 07/15/2020 Spontaneous pneumothorax 09/14/2009 Statin intolerance 07/16/2014 Type 2 diabetes mellitus with hemoglobin A1c goal of less than 8.0% ([facility]) 01/07/2022 Past Surgical History: Procedure Laterality Date ARTHROPLASTY KNEE TOTAL Right 07/24/14 R COLONOSCOPY, DIAGNOSTIC (RECTUM) 02/18/2016 normal, repeat 10 yrs/[facility] COLONOSCOPY, GI REFERRAL OP 01/28/06 diverticulosis--repeat 10 years INCISION OF [place], PLANNED 06/03/2011 TRACHEOSTOMY PLANNED performed by DANNY HOLDER at OR [facility] INJECT DX/THER SUBSTANCE INTERLAMINAR LUMBAR/SACRAL W IMAGE GUIDE 05/26/2020 INJECTION SPINE LUMBAR OR SACRAL performed by Raj Ahn DO at OR [facility] INJECT DX/THER SUBSTANCE INTERLAMINAR LUMBAR/SACRAL W IMAGE GUIDE 05/14/2021 INJECTION SPINE LUMBAR OR SACRAL performed by Raj Ahn DO at OR [facility] INJECT DX/THER SUBSTANCE INTERLAMINAR LUMBAR/SACRAL W IMAGE GUIDE 08/13/2021 INJECTION SPINE LUMBAR OR SACRAL performed by Raj Ahn DO at OR [facility] KNEE ARTHROSCOPY/DEBRIDEMENT 07/[address] PERMANENT GASTROSTOMY TUBE 09/06/09 GASTROSTOMY WITH CONSTUCTION GASTRIC TUBE performed by AMADOU NUNEZ at [facility] REMOVAL OF THYROID GLAND 06/15/2011 THYROIDECTOMY INCLUDING SUBSTERNAL THYROID CERVICAL APPROACH performed by DANNY HOLDER at OR [facility] REMOVE GALLBLADDER 09/06/09 CHOLECYSTECTOMY performed by AMADOU NUNEZ at OR [facility] REPAIR RECURRENT INCISIONAL HERNIA 1998 REVISION OF COLOSTOMY, SIMPLE 1998 SACROILIAC JOINT INJECT W/GUIDANCE 07/28/2020 INJECTION SACROILIAC JOINT performed by Raj Ahn DO at OR [facility] SACROILIAC JOINT INJECT W/GUIDANCE 03/03/2022 INJECTION SACROILIAC JOINT performed by Raj Ahn DO at OR [facility] SUTURE, LARGE INTESTINE W/COLOSTOMY 1996 perforation R colon with colostomy VENA CAVA FILTER/LIGATION/CLIP 08/19/09 Frank filter placement through the right femoral 08/19/[address] Lerma at [facility] Review of patient's allergies indicates: Allergen Reactions Bupropion Other reaction(s): Recurrent falls as per patient Jardiance [Empagliflozin] Other (Please comment) 3 yeast infections in 6 weeks after starting Codeine hallucination Hay Fever [Pollen] Heparin Heparin Induced Thrombocytopenia Hydrocodone Neuro complications (Please comment) Morphine And Related Hallucinations Tetanus Toxoid Other (Please comment) Passed out Review of Systems Constitutional: Positive for unexpected weight change. Negative for appetite change and fatigue. Respiratory: Positive for shortness of breath. Negative for cough and wheezing. Cardiovascular: Positive for leg swelling. Negative for chest pain and palpitations. Gastrointestinal: Negative for abdominal pain, constipation, diarrhea, nausea and vomiting. Genitourinary: Negative for dysuria and hematuria. Musculoskeletal: Positive for back pain and gait problem. Neurological: Negative for dizziness, syncope and headaches. Psychiatric/Behavioral: Negative for confusion and decreased concentration. OBJECTIVE: BP 136/60 | Pulse 94 | Temp 36 C (96.8 F) (Tympanic) | Resp 16 | Ht 1.651 m (5' 5") | Wt (!) 143.8 kg (317 lb) | LMP 03/11/2003 | SpO2 97% | BMI 52.75 kg/m | BSA 2.57 m Physical Exam [...] long-term current use of insulin (HCC) - HEMOGLOBIN A1C; Future; Expected date: 11/01/2022 - ALBUMIN / CREATININE RATIO, URINE; Future; Expected date: 11/01/2022 - COMPREHENSIVE METABOLIC PANEL; Future; Expected date: 11/01/2022 - CBC WITH WBC DIFFERENTIAL; Future; Expected date: 11/01/2022 Continue Metformin, Trulicity, Novolog, and Tresiba DM type 2 nursing care encounter (HCC) - DIABETES FOOT EXAM Recurrent deep vein thrombosis (DVT) of both lower extremities ([facility]) Continue Apixaban Chronic hypoxemic respiratory failure (HCC) Continue oxygen ILD (interstitial lung disease) (HCC) - CBC WITH WBC DIFFERENTIAL; Future; Expected date: 11/01/2022 Postsurgical hypothyroidism - TSH WITH FREE T4 IF INDICATED; Future; Expected date: 11/01/2022 Continue Levothyroxine Essential hypertension with goal blood pressure less than 140/90 Statin intolerance Restless legs syndrome Gastroesophageal reflux disease with esophagitis without hemorrhage Continue Omeprazole Primary osteoarthritis of left knee Spinal stenosis of lumbar region without neurogenic claudication Continue Oxycodone and Duloxetine Atherosclerosis of [place] coronary artery of [place] heart without angina pectoris Anxiety state Continue Duloxetine and Clonazepam [place] filter in place Vitamin D deficiency - 25-HYDROXY VITAMIN D; Future; Expected date: 11/01/2022 Follow Up: Return in about 1 month (around 11/29/2022), or if symptoms worsen or fail to improve. Galdino Andujar DO 1:57 PM 11/01/2022 * Shira Gross LPN - 11/01/2022 1:28 PM EST Socks and Shoes Removed for Annual Diabetic Foot Screening RIGHT FOOT: No Reddened, Cracking, Or Open Areas Noted. RIGHT Dorsalis Pedis Pulse: Palpable RIGHT Posterior Tibial Pulse: Palpable RIGHT Monofilament:Patient reports feeling monofilament pressure on plantar surface of foot +3 edema R>L Toe nails long, skin dry. LEFT FOOT: No Reddened, Cracking or Open Areas Noted. LEFT Dorsalis Pedis Pulse: Palpable LEFT Posterior Tibial Pulse: Palpable LEFT Monofilament:Patient reports feeling monofilament pressure on plantar surface of foot Do you need diabetic shoes: N/A documented in this encounter Nursing Notes * Shira Gross LPN - 11/01/2022 1:24 PM EST Here for follow up, complaining of fatigue. documented in this encounter Plan of Treatment Upcoming Encounters Date Type Specialty Care Team Description 11/04/2022 Home Visit Family Medicine Mira Duong, Community [facility] Human Resources Executive [address] [place] [address] 11/22/2022 Home Visit [facility] Brooke Jose, RN [address] [place] [address] 11/29/2022 Home Visit Family Medicine Magaly Dean, Community [facility] Human Resources Executive [address] [place] [address] 12/28/2022 Office Visit Nephrology rEik Lenz MD [address] [facility] [place] [address] 01/19/2023 PulmDiagnostic Pulmonary Function [place], [address] [place] [address] 08/08/2023 Nurse Only [facility], Nurse Annual Wellness Visit [address] [place] [address] Scheduled Orders Name Type Priority Associated Diagnoses Orde r Schedule HEMOGLOBIN A1C Lab Routine Type 2 diabetes mellitus with stage 3b chronic kidney disease, with long-term current use of insulin (HCC) Expected: 11/01/2022 (Approximate), Expires: 11/01/2023 ALBUMIN / CREATININE RATIO, URINE Lab Routine Type 2 diabetes mellitus with stage 3b chronic kidney disease, with long-term current use of insulin (HCC) Expected: 11/01/2022 (Approximate), Expires: 11/01/2023 TSH WITH FREE T4 IF INDICATED Lab Routine Postsurgical hypothyroidism Expected: 11/01/2022 (Approximate), Expires: 11/01/2023 COMPREHENSIVE METABOLIC PANEL Lab Routine Type 2 diabetes mellitus with stage 3b chronic kidney disease, with long-term current use of insulin (HCC) Expected: 11/01/2022 (Approximate), Expires: 11/01/2023 CBC WITH WBC DIFFERENTIAL Lab Routine Type 2 diabetes mellitus with stage 3b chronic kidney disease, with long-term current use of insulin (HCC) ILD (interstitial lung disease) (HCC) Expected: 11/01/2022 (Approximate), Expires: 11/01/2023 25-HYDROXY VITAMIN D Lab Routine Vitamin D deficiency Expected: 11/01/2022 (Approximate), Expires: 11/01/2023 CBC Lab Routine Type 2 diabetes mellitus with stage 3b chronic kidney disease, with long-term current use of insulin (HCC) ILD (interstitial lung disease) (HCC) Ordered: 11/01/2022 DIFFERENTIAL, AUTOMATED Lab Routine Type 2 diabetes mellitus with stage 3b chronic kidney disease, with long-term current use of insulin (HCC) ILD (interstitial lung disease) (HCC) Ordered: 11/01/2022 Scheduled Procedures Name Priority Associated Diagnoses Date/Ti me COLONOSCOPY FLEXIBLE PROXIMAL DIAGNOSTIC Recall Colon cancer screening Health Maintenance Due Date Last Done Comments Cologuard: Ages 45-75 2000 FOBT: Ages 45-75 2000 Sigmoidoscopy: Ages 45-75 2000 COVID-19 Vaccine (5 - Booster for Pfizer series) 06/08/2022 2022, 10/01/2021, 01/08/2021, Additional history exists HgA1C 11/12/2022 05/12/2022, 12/25, 11/17/2020, Additional history exists Alb / Creat Ratio 01/07/2023 01/07/2022, , 05/01/2018, Additional history exists CKD PHOS USE SMARTSET 78725 01/07/202312/25, 03/12/2021, 11/17/2020, Additional history exists TSH FOR THYROID MEDICATION MONITORING YEARLY 01/07/2023 01/07/2022, 12/25/2020, 05/06/2020, Additional history exists Mammogram 02/11/2023 02/11/2022, 02/2021, 07/10/2019, Additional history exists GFR - Renal Function 03/14/2023 09/13/2022, 08/13/2022, 07/02/2022, Additional history exists DIABETES-EYE EXAM 05/24/2023 05/24/2022, , 04/07/2020, Additional history exists CKD HGB USE SMARTSET 34026 06/29/202306/29, 06/29/2022, 01/07/2022, Additional history exists Depression Screening, Annual for Pts 12 and Over 09/29/2023 09/29/2022, 06/12/2018 DIABETES-FOOT EXAM 11/01/2023 11/01/2022, 0 01/07/2022, 01/14/2021, Additional history exists Colonoscopy: Ages 45-75 02/17/2026 [...] with long-term current use of insulin (HCC) DM type 2 nursing care encounter (HCC) Type II or unspecified type diabetes mellitus without mention of complication, not stated as uncontrolled Recurrent deep vein thrombosis (DVT) of both lower extremities (HCC) Chronic hypoxemic respiratory failure (HCC) Chronic respiratory failure ILD (interstitial lung disease) (HCC) Postinflammatory pulmonary fibrosis Postsurgical hypothyroidism Essential hypertension with goal blood pressure less than 140/90 Statin intolerance Other drug allergy Restless legs syndrome Restless legs syndrome (RLS) Gastroesophageal reflux disease with esophagitis without hemorrhage Primary osteoarthritis of left knee Primary localized osteoarthrosis, lower leg Spinal stenosis of lumbar region without neurogenic claudication Spinal stenosis, lumbar region, without neurogenic claudication Atherosclerosis of [place] coronary artery of [place] heart without angina pectoris Anxiety state Anxiety state, unspecified [place] filter in place Other postprocedural status Vitamin D deficiency Unspecified vitamin D deficiency documented in this encounter Advance Directives Documents on File Type Date Recorded Patient [place] Hand Expl anation POLST 03/19/2020 4:25 PM POLST [...] the patient have Health Care Power of Warehouse Worker? No Healthcare Agents on File Name Relationship Healthcare Agent Relationship Communication Galdino Camp Other - (no specific identity) Health Care Power of Warehouse Worker Princess Allen Other - (no specific identity) Health Care Power of Warehouse Worker Care Teams Checker/Stocker Relationship Specialty Start Date End Date Galdino Andujar, DO [address] [place] [address] PCP - General Internal Medicine 01/07/22 documented as of this encounter
--- OUTSIDE RECORDS SUMMARY | 2023-06-01 04:20 | External Medical Summary | Summary of Care ---
Author Name Unknown Organization [place] [address] Care Team Providers Care Heel Sprayer Name Role Phone Galdino Andujar DO Primary Care Provider [phone] Reason for Visit * Reason Comments Dosage Adjustment In Person (Anticoag Cl inic) Diabetes Encounter Details Date Type Department Care Team Description 11/01/2022 Office Visit Family Practice 65 [facility] [address] [place] [phone] [place], Pharmacist [address] [address] Type 2 diabetes mellitus with stage 3b chronic kidney disease, with long-term current use of insulin ([facility])* Allergies Active Allergy Reactions [...] lpm continuous 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: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 diastolic congestive heart failure (HCC) [...] of 7.0%-8.0% ([facility]) INJECT 60 UNITS UNDER [...] less than 8.0% ([facility]) Take 1 Tablet (500 [...] (HIT) 0 12/31/2021 Atherosclerosis of [place] coronary arter 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 12/31/2021 [...] mRNA, LNP-s, No Pre serve, 2-Dose Series ([employer]) 01/08/2021,12/18/2020 COVID-19, LNP-s, No Preserve , Navarro-sucrose, Ages 12+ (Pfizer) 2022,10/01/2021 Pneumococcal Conjugate Vacci ne, 20-valent ([id number]) 03/12/2022 Pneumococcal Polysaccharide PPV23 (Pneumovax) 08/22/2009,06/15/2006 Seasonal [...] as of this encounter Progress Notes * Aliya Cleaning, [facility] - 11/01/2022 1:40 PM EST Images from the original note were not included. Medication Therapy Disease Management [facility] - Diabetes Management Progress Note Stephanie Camp, identified by name and date of , is a 67 year old female being seen for diabetes management/education. Patient presents for return diabetic visit. DIABETES: Current diabetic medications: ADJUST Novolog - 40 units withbreakfast, 44 units lunch and 45 units with supper+ SS 1:25 >150 before meals Decrease Tresiba 56 units atbedtime Trulicity 4.5 mg weekly-Tuesdaymornings Metformin ER 500 mg 1 tablet daily [id number]/13/22 Medication Injection Site: Abdomen Lifestyle: Diet: unchanged Glucose Review/SMBG: Readings obtained from patient device Hypoglycemia: Does your blood sugar go below 70 mg/dL? No, sensor shows lows but check with fingerstick shows they are not true lows Hyperglycemia symptoms present: none Recent Labs Units 05/12/22 1504 01/07/22 1156 11/17/20 1300 HEMOGLOBIN A1C - [facility] % 7.6* 7.8* 8.3* Recent Labs Units 09/13/22 1410 08/13/22 0902 07/02/22 1511 ESTIMATED GLOMERULAR FILTRATION RATE - [facility] mL/min 38* 37* 38* CREATININE - [facility] mg/dL 1.5* 1.5* 1.5* HYPERTENSION: Patient on ACEi/ARB: no, not indicated BP Readings from Last 3 Encounters: 11/01/22 136/60 10/11/22 130/60 09/29/22 136/74 Blood pressure at goal: yes HYPERLIPIDEMIA: Patient is taking moderate or high intensity statin: No Current regimen: none, statin intolerant Goal statin intensity: high The ASCVD Risk score (Marylu FRANK, et al., 2019) failed to calculate for the following reasons: The patient has a prior IN or stroke diagnosis Recent Labs Units 07/02/22 1511 LDL CHOLESTEROL (CALCULATED) - [facility] mg/dL 120 HEALTH MAINTENANCE REVIEW: Health Maintenance Due Topic Date Due COVID-19 Vaccine (5 - Booster for Pfizer series) 06/08/2022 HgA1C 11/12/2022 Alb / Creat Ratio 01/07/2023 DIABETES-FOOT EXAM 01/07/2023 ASSESSMENT & PLAN: ICD-10-CM 1. Type 2 diabetes mellitus with stage 3b chronic kidney disease, with long-term current use of insulin ([facility]) E11.22 N18.32 Z79.4 History of Treatment Barriers: Therapy considerations:Renal Function and Cost Medication:jardiance:ADEyeast infections/UTIs Medication: statins - intolerant BG Readings - Blood sugars uncontrolled. BG have improved but still elevated for most of the day with some drops in the afternoon. Patient notes Dexcom sensor reads low but she checks with a fingerstick and they are not true lows and are typically 10 points higher than what the sensor reads. Patient does report that she has been getting notifications that there have been issues with Dexcom. Advised patient to contact the hazard mitigation officer with any issues. Medications - Reviewed current regimen, patient is adherent to regimen. Will slightly increase Tresiba to help with overall elevations throughout the day. Will slightly decrease Novolog before lunch to help prevent afternoon lows. Diet, Exercise, Lifestyle - No significant lifestyle changes since last visit. Patient is agreeable to SMBG with Dexcom daily. Patient aware to contact clinic if any hypoglycemia before next visit. MEDICATION CHANGES: yes, see below; [facility] Medications: DECREASE: Novolog - 40 units withbreakfast, 42 units lunch and 45 units with supper+ SS 1:25 >150 before meals INCREASE: Tresiba 58 units atbedtime Trulicity 4.5 mg weekly- Metformin ER 500 mg 1 tablet daily [id number]/13/22 HEALTH MAINTENANCE INTERVENTIONS: Labs: Up to Date Immunizations: Due for Covid booster Foot Exam: Up to Date Eye Exam: Up to Date Annual Wellness Visit: Up to Date FOLLOW UP: Return to clinic in 5 weeks 12/06/2022 Aliya Cleaning [facility] Clinical Pharmacist - Guitar Instructor Medication Therapy Management Clinic 10/29/2022, 8:46 AM documented in this encounter Plan of Treatment Upcoming Encounters Date Type Specialty Care Team Description 11/04/2022 Home Visit Family Medicine Mira Duong, Community Health Biomedical Equipment Technician [address] [place] [address] 11/22/2022 Home Visit [facility] Brooke Jose, RN [address] [place] [address] 11/29/2022 Office Visit Family Medicine Galdino Andujar, DO [address] [place] [address] 11/29/2022 Home Visit Family Medicine Magaly Dean, Community Health Biomedical Equipment Technician [address] [place] [address] 12/06/2022 Telemedicine Family [facility], Pharmacist 65 [facility] [address] [place] [address] 12/28/2022 Office Visit Nephrology Erik Lenz MD [address] [place] [address] 01/19/2023 PulmDiagnostic Pulmonary Function [facility], Pft [address] [facility] [place] [address] 08/08/2023 Nurse Only Ancillary [place], Nurse Annual Wellness Visit 65 [facility] [address] [place] [address] Scheduled Procedures Name Priority Associated Diagnoses Date/Ti [...] Additional history exists CKD PHOS USE SMARTSET 43358 01/07/202312/25, 03/12/2021, 11/17/2020, Additional history exists TSH FOR THYROID MEDICATION MONITORING YEARLY 01/07/2023 01/07/2022, 12/25/2020, 05/06/2020, Additional history exists Mammogram 02/11/2023 02/11/2022, 0 02/2021, 07/10/2019, Additional history exists GFR - Renal Function 03/14/2023 09/13/2022, 08/13/2022, 07/02/2022, Additional history exists DIABETES-EYE EXAM 05/24/2023 05/24/2022, , 04/07/2020, Additional history exists CKD HGB USE SMARTSET 35314 06/29/202306/29, 06/29/2022, 01/07/2022, Additional history exists Depression [...] Documents on File Type Date Recorded Patient Carpet Tile Layer Expl anation POL 03/19/2020 4:25 PM POLST [...] the patient have Health Care Power of Ict Development Manager? No Healthcare Agents on File Name Relationship Healthcare Agent Relationship Communication Galdino Camp Other - (no specific identity) Health Care Power of Ict Development Manager Princess Other - (no specific identity) Health Care Power of Ict Development Manager Care Teams Heel Sprayer Relationship Specialty Start Date End Date Galdino Andujar, DO [address] [place] [address] PCP - General Internal Medicine 01/07/22 documented as of this encounter
--- OUTSIDE RECORDS SUMMARY | 2023-06-01 04:20 | External Medical Summary ---
Author Name Unknown Address Unknown Organization K01:[facility] - [address] [facility] [address] Laboratory Report Ordering Provider Test Date Status JAG SHULTZ 11/01/2022 14:13:01 Final Observation Date Value Abnormality Reference (Units ) Status WBC, Total 11/01/2022 14:13:01 11.31 Above high normal 4.00-10.80 (K/uL) Final RBC 11/01/2022 14:13:01 4.40 3.85-5.15 (M/uL) Final Hemoglobin 11/01/2022 14:13:01 13.3 12.0-15.3 (g/dL) Final HCT 11/01/2022 14:13:01 43.5 36.0-45.2 (%) Final MCV 11/01/2022 14:13:01 98.9 81.5-97.5 (fL) Final MCH 11/01/2022 14:13:01 30.2 27.0-34.0 (pg) Final MCHC 11/01/2022 14:13:01 30.6 32.0-36.0 (g/dL) Final RDW 11/01/2022 14:13:01 15.0 11.5-15.5 (%) Final Platelets 11/01/2022 14:13:01 339 140-400 (K/uL) Final MPV 11/01/2022 14:13:01 10.4 6.6-11.1 (fL) Final Nucleated erythrocytes/100 leukocytes [Ratio] in Blood by Automated count 11/01/2022 14:13:01 0 <=0 (/100 WBCs) Final Performing Location [facility] - [address] [place] [address]
--- OUTSIDE RECORDS SUMMARY | 2023-06-01 04:20 | External Medical Summary ---
Author Name Unknown Address Unknown Organization K01:[facility] [place] [address] [place] [address] Laboratory Report Ordering Provider Test Date Status JAG SHULTZ 11/01/2022 14:13:01 Final Observation Date Value Abnormality Reference (Units ) Status TSH 11/01/2022 14:13:01 1.10 0.27-4.20 (uIU/mL) Final Performing Location [facility] - [address] [place] [address]
--- OUTSIDE RECORDS SUMMARY | 2023-06-01 04:20 | External Medical Summary | Summary of Care ---
Author Name Unknown Organization [place] [address] Care Team Providers Care Job Setter Honing Name Role Phone PratimaGaldino DO Primary Care Provider [phone] Reason for Visit * Reason Comments [facility]: Maintenance Encounter Details Date Type Department Care Team Description 11/04/2022 Home Visit Care Coordination [address] [place] [address] Mira Duong, Community Health Hosting Engineer [address] [place] [address] Allergies Active Allergy Reactions Severity Noted Date [...] as of this encounter (statuses as of 11/04/2022) Medications Medication Sig Dispensed Refills Start Date End Date Status DEMIAN DELFRANTZ LANCETS 33G MISC Check blood sugars 3-4 times daily 180 Each 5 08/01/2018 Active oxygen GASIndications:ELISSA (obstructive sleep apnea) 2 lpm continuous 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:Contracts 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 Abnormality of gait 02/02/[address] 08/19/2014 History of pulmonary [...] as of this encounter (statuses as of 11/04/2022) Resolved Problems Problem Noted Date Resolved Date [...] as of this encounter (statuses as of 11/04/2022) Immunizations Name Administration Dates Next Due COVID-19 mRNA, LNP-s, No Pre serve, 2-Dose Series ([employer]) 01/08/2021,12/18/2020 COVID-19, LNP-s, No Preserve , Navarro-sucrose, Ages 12+ (Pfizer) 2022,10/01/2021 Pneumococcal Conjugate Vacci ne, 20-valent ([id number]) 03/12/2022 Pneumococcal Polysaccharide PPV23 (Pneumovax) 08/22/2009,06/15/2006 Seasonal [...] documented in this encounter Progress Notes * Mira Duong, Community Health Hosting Engineer - 11/04/2022 12:50 PM EST Community Health Hosting Engineer Visit Date: 11/04/2022 Time: 12:51 PM Name: Stephanie Camp : 1955 Referral Source: manager of sales Source of Information: Patient Spoken language: danish Patient can read in Liberian: Yes. Marketing Services Vice President needed: No. COVID-19 screening completed: Yes Vitals: [...] Score is 4 or more? Yes, notified Provider/Egg Setter Last flowsheet values for [facility]: Age 65+: 1 (11/04/2022 1:00 PM) Diagnosis [...] or public transportation assistance: Yes. Specify agency: [employer] bus sometimes o Patient reports trouble getting a [...] up with patient as needed per CM. Lisa Wilson Health Hosting Engineer 11/04/2022 12:51 PM documented in this encounter Plan of Treatment Upcoming Encounters Date Type Specialty Care Team Description 11/22/2022 Home Visit [facility] Brooke Jose, RN [address] [facility] [place] [address] 11/29/2022 Office Visit Family Medicine Galdino Andujar, DO [address] [place] [address] 11/29/2022 Home Visit Family Medicine Magaly Dean, Community Health Hosting Engineer [address] [place] [address] 12/06/2022 Telemedicine [facility], Pharmacist [address] [address] 12/28/2022 Office Visit Nephrology Erik Lenz MD [address] [place] [address] 01/19/2023 PulmDiagnostic Pulmonary Function [place], Pft [address] [facility] [place] [address] 08/08/2023 Nurse Only Ancillary [employer], Nurse Annual Wellness Visit [address] [address] Scheduled Procedures Name Priority Associated Diagnoses Date/Ti me COLONOSCOPY FLEXIBLE PROXIMAL DIAGNOSTIC Recall Colon cancer screening Health Maintenance Due Date Last Done Comments Cologuard: Ages 45-75 2000 FOBT: Ages 45-75 2000 Sigmoidoscopy: Ages 45-75 2000 COVID-19 Vaccine (5 - Booster for Pfizer series) 06/08/2022 2022, 10/01/2021, 01/08/2021, Additional history exists CKD PHOS USE SMARTSET 08366 01/07/202312/25, 03/12/2021, 11/17/2020, Additional history exists Mammogram 02/11/2023 02/11/2022, 02/2021, 07/10/2019, Additional history exists GFR - Renal Function 05/01/2023 11/01/2022, 09/13/2022, 08/13/2022, Additional history exists HgA1C 05/01/2023 11/01/2022, 04/26, 01/07/2022, Additional history exists DIABETES-EYE EXAM 05/24/2023 05/24/2022, , 04/07/2020, Additional history exists Alb / Creat Ratio 11/01/2023 11/01/2022, , 05/24/2019, Additional history exists CKD HGB USE SMARTSET 92436 11/01/202311/01, 11/01/2022, 06/29/2022, Additional history exists DIABETES-FOOT [...] Documents on File Type Date Recorded Patient Prom Burn Off Operator Expl anation POLST 03/19/2020 4:25 PM [...] the patient have Health Care Power of Yarn Carrier? No Healthcare Agents on File Name Relationship Healthcare Agent Relationship Communication Galdino Camp Other - (no specific identity) Health Care Power of Yarn Carrier Princess Other - (no specific identity) Health Care Power of Yarn Carrier Care Teams Job Setter Honing Relationship Specialty Start Date End Date Galdino Andujar, DO [address] [place] [address] PCP - General Internal Medicine 01/07/22 documented as of this encounter
--- OUTSIDE RECORDS SUMMARY | 2023-06-01 04:20 | External Medical Summary | Summary of Care ---
Author Name Unknown Organization [place] [address] Care Team Providers Care Technical Producer Name Role Phone Galdino Andujar DO Primary Care Provider [phone] Reason for Visit * Reason Onset Date Comments [facility]: Maintenance 10/27/2022 Encounter Details Date Type Department Care Team Description 10/27/2022 Scheduled Telephone [facility], [facility] [address] [place] [address] Coordinator, [facility] 132 [facility] [place] [address] Allergies Active Allergy Reactions Severity Noted Date [...] as of this encounter (statuses as of 10/28/2022) Medications Medication Sig Dispensed Refills Start Date End Date Status DEMIAN DELFRANTZ LANCETS 33G MISC Check blood sugars 3-4 times daily 180 Each 5 08/01/2018 Active oxygen GASIndications:ELISSA (obstructive sleep apnea) 2 lpm continuous 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: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 30 Capsule 5 08/25/2022 Active Gabapentin 100 MG Oral Capsule (Neurontin)Indicatio ns:Fibromyalgia,Rest less legs syndrome Take 2 Capsules (200 mg) by mouth at bedtime. 60 Capsule 5 08/25/2022 Active Additional Information Patient taking differently: 100 mgOral HS, Reported on 09/29/2022 Magnesium Oxide 400 MG Oral CapsuleIndications:B enign [...] hemoglobin A1c goal of less than 8.0% ([facility]) Take 1 Tablet (500 mg) by mouth [...] mellitus with hemoglobin A1c goal of 7.0%-8.0% ([facility]) Inject 40-45 units with meals + sliding scale 1 units for every 25 units BG > 150. 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 Abnormality of gait 02/02/[address] [place] [address] 08/19/2014 History of pulmonary [...] as of this encounter (statuses as of 10/28/2022) Resolved Problems Problem Noted Date Resolved Date Type 2 diabetes mellitus wit h diabetic chronic kidney disease 12/31/2021 07/27/2022 Last Assessment & Plan: Last hgba1c 7.6. BS reportedly running in the low 200s -Continue trulicity, Tresiba, metformin Acute deep vein thrombosis ( DVT) of [...] as of this encounter (statuses as of 10/28/2022) Immunizations Name Administration Dates Next Due COVID-19 mRNA, LNP-s, No Pre serve, 2-Dose Series (CSS99) 01/08/2021,12/18/2020 COVID-19, LNP-s, No Preserve , Navarro-sucrose, Ages 12+ (Pfizer) 2022,10/01/2021 Pneumococcal Conjugate Vacci ne, 20-valent ([id number]) 03/12/2022 Pneumococcal Polysaccharide PPV23 (Pneumovax) 08/22/2009,06/15/2006 Seasonal [...] got money to buy more. Never true 09/29/2022 Within the past 12 months, t he food you bought just didn't last and you didn't have money to get more. Never true 09/29/2022 Sex Assigned at Date Recorded Female 11/07/2019 2:[address] Job Start Date Occupation Industry Not on file Not on file Not on file documented as of this encounter Miscellaneous Notes * Telephone Encounter - Suzanne Evans LPN - 10/27/2022 11:36 AM EST Images from the original note were not included. [facility] Telephonic Nurse Follow-Up Call [facility] Subprogram: Focused Care Management (3-9 months) Follow Up Call Type: Routine follow up call / Status Check Acute issue requiring follow-up call: Other: vertigo/nausea Objective: 10/11/2022 09/29/2022 09/23/2022 09/13/202209/06/2022 VITALS ACROSS ENCOUNTERS BP 130/60 136/74 108/62 132/70 130/60 Pulse 95 98 98 97 90 Weight 138.8 kg 140.5 kg 140.6 kg 143 kg 142.9 kg BMI 51.55 52.47 BMI 50.92 kg/m2 51.55 kg/m2 51.59 kg/m2 52.47 kg/m2 52.42 kg/m2 Multiple values from one day are sorted in reverse-chronological order Lab Results Component Value Date BLOOD, URINE - [facility] Negative 09/06/2022 BLOOD, URINE POCT - [facility] Negative 08/06/2022 PROTEIN - [facility] 7.2 09/13/2022 PROTEIN, URINE - [facility] Negative 09/06/2022 PROTEIN, URINE POCT - [facility] Negative 08/06/2022 ESTERASE, URINE - [facility] Trace (A) 09/06/2022 ESTERASE, URINE POCT - [facility] Small (A) 08/06/2022 WBC, URINE - [facility] 6-9 (A) 09/06/2022 NITRITE, URINE - [facility] Negative 09/06/2022 NITRITE, URINE POCT - [facility] Negative 08/06/2022 QUANT URINE CULTURE GROWTH No significant growth 08/06/2022 No results found for: WBC AUTO - [facility], HGB - [facility], PLATELET AUTO - [facility] Lab Results Component Value Date SODIUM - [facility] 140 09/13/2022 POTASSIUM - [facility] 4.4 09/13/2022 MAGNESIUM - [facility] 1.6 08/13/2022 CO2 - [facility] 33 (H) 09/13/2022 CREATININE - [facility] 1.5 (H) 09/13/2022 ESTIMATED GLOMERULAR FILTRATION RATE - [facility] 38 (L) 09/13/2022 ALBUMIN - [facility] 4.5 09/13/2022 AST - [facility] 22 09/13/2022 ALT - [facility] 16 09/13/2022 ALKALINE PHOSPHATASE - [facility] 89 09/13/2022 No results found for: PRO BNP, LEFT VENTRICULAR EJECTION FRACTION Remote Patient Monitoring: NONE Oxygen Needs: NO CHANGE from baseline supplemental oxygen needs DME Needs: Other: rolling walker, CPAP Medications: No medication or dose adjustments made during acute episode Subjective: Condition Status: Improvement in symptoms but not at baseline Current Concerns: Spoke with patient for follow up. States today her fibromyalgia is "acting up due to the weather change" also states she has a little vertigo today. Is laying in bed and will take meclizine if needed. Did not weigh today due to vertigo. Denies nausea and stool back to baseline. No diarrhea. Denies fever, chills, sob Aware to call [facility] with any changes in symptoms or concerns Routing to care team Disposition: [facility]ed to [facility] and[facility]or [facility] Care Team for further advice Future Visits Scheduled: Future Appointments-next 60 days Date/Time Provider Specialty Dept Phone 10/27/2022 1:00 PM [facility] Geoffrey Environmental Services Coordinator [facility] [phone] 11/01/2022 11:30 AM Mira Duong [facility]icular Acupuncturist Family Medicine [phone] 11/01/2022 1:00 PM (Arrive by 12:45 PM) Galdino Andujar DO Family Medicine [phone] 11/01/2022 1:40 PM (Arrive by 1:25 PM) Pharmacist [address] [place] [address] Family Medicine [phone] 11/22/2022 10:00 AM Brooke Jose RN [facility] [phone] 12/28/2022 11:00 AM (Arrive by 10:45 AM) Erik Lenz MD Nephrology [phone] 01/19/2023 2:00 PM [facility] [place] [facility] Function [phone] 08/08/2023 2:00 PM Nurse Annual Wellness Visit [address] [place] [address] Ancillary [phone] Suzanne Evans LPN documented in this encounter Plan of Treatment Upcoming Encounters Date Type Specialty Care Team Description 11/01/2022 Home Visit Family Medicine Mira Duong, [facility]icular Acupuncturist [facility] [place] [place] [address] 11/01/2022 Office Visit Family Medicine Galdino Andujar DO [address] [place] [address] 11/01/2022 Office Visit Family Medicine [place], Pharmacist [address] [place] [address] 11/22/2022 Home Visit [facility] Brooke Jose, RN [address] [place] [address] 12/28/2022 Office Visit Nephrology Erik Lenz MD [address] [facility] [place] [address] 01/19/2023 PulmDiagnostic Pulmonary Function [place], Pft 132 [facility] [place] [address] 08/08/2023 Nurse Only Ancillary College, Nurse Annual Wellness Visit [address] [place] [address] Scheduled Procedures Name Priority Associated Diagnoses Date/Ti [...] Additional history exists CKD PHOS USE SMARTSET 26871 01/07/202312/25, 03/12/2021, 11/17/2020, Additional history exists DIABETES-FOOT EXAM 01/07/2023 01/07/2022, 0 01/14/2021, 11/07/2019, Additional history exists TSH FOR THYROID MEDICATION MONITORING YEARLY 01/07/2023 01/07/2022, 12/25/2020, 05/06/2020, Additional history exists Mammogram 02/11/2023 02/11/2022, 02/2021, 07/10/2019, Additional history exists GFR - Renal Function 03/14/2023 09/13/2022, 08/13/2022, 07/02/2022, Additional history exists DIABETES-EYE EXAM 05/24/2023 05/24/2022, , 04/07/2020, Additional history exists CKD HGB USE SMARTSET 81140 06/29/202306/29, 06/29/2022, 01/07/2022, Additional history exists Depression Screening, Annual for Pts 12 and Over 09/29/2023 09/29/2022, 06/12/2018 Colonoscopy: Ages 45-75 02/17/2026 02/18/20 16, [...] on File Type Date Recorded Patient Wood Grainer Expl anation POLST 03/19/2020 4:25 PM POLST [...] the patient have Health Care Power of Photoengraving Photographer? No Healthcare Agents on File Name Relationship Healthcare Agent Relationship Communication Galdino Camp Other - (no specific identity) Health Care Power of Photoengraving Photographer Princess Allen Other - (no specific identity) Health Care Power of Photoengraving Photographer Care Teams Technical Producer Relationship Specialty Start Date End Date Galdino Andujar, DO [address] [place] [address] PCP - General Internal Medicine 01/07/22 documented as of this encounter
--- OUTSIDE RECORDS SUMMARY | 2023-06-01 04:20 | External Medical Summary | Summary of Care ---
Author Name Unknown Organization [place] [address] Care Team Providers Care Multimedia Authoring Specialist Name Role Phone Galdino Andujar DO Primary Care Provider [phone] Reason for Visit * Reason Onset Date Comments [facility]: Maintenance 10/27/2022 Encounter Details Date Type Department Care Team Description 10/27/2022 Scheduled Telephone [facility], [facility] [address] [place] [address] Coordinator, [facility] 132 [facility] [place] [address] Allergies Active Allergy Reactions Severity Noted Date [...] lpm continuous 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: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 Abnormality of gait 02/02/[address] [place] [address] 08/19/2014 History of pulmonary [...] mRNA, LNP-s, No Pre serve, 2-Dose Series ([employer]) 01/08/2021,12/18/2020 COVID-19, LNP-s, No Preserve , Navarro-sucrose, Ages 12+ (Pfizer) 2022,10/01/2021 Pneumococcal Conjugate Vacci ne, 20-valent ([id number]) 03/12/2022 Pneumococcal Polysaccharide PPV23 (Pneumovax) 08/22/2009,06/15/2006 Seasonal [...] [facility] Telephonic Nurse Follow-Up Call [facility] Subprogram: Focused Care Management (3-9 months) [...] Denies fever, chills, sob Aware to call [facility] with any changes in symptoms or concerns Routing to care team Disposition: Routed to [facility] and/or [facility] Care Team for further advice Future Visits Scheduled: Future Appointments-next 60 days Date/Time Provider Specialty Dept Phone 10/27/2022 1:00 PM [facility] Geoffrey Channel Director [facility] [phone] 11/01/2022 11:30 AM Mira Duong [facility] Family Medicine [phone] 11/01/2022 1:00 PM (Arrive by 12:45 PM) Galdino Andujar DO Family Medicine [phone] 11/01/2022 1:40 PM (Arrive by 1:25 PM) Pharmacist [address] [place] [address] Family Medicine [phone] 11/22/2022 10:00 AM Brooke Jose RN [facility] [phone] 12/28/2022 11:00 AM (Arrive by 10:45 AM) Erik Lenz MD Nephrology [phone] 01/19/2023 2:00 PM [facility] [place] Pulmonary Function [phone] 08/08/2023 2:00 PM Nurse Annual Wellness Visit [address] [place] [address] Ancillary [phone] Suzanne Evans LPN documented in this encounter Plan of Treatment Upcoming Encounters Date Type Specialty Care Team Description 11/01/2022 Home Visit Family Medicine Mira Duong, [facility] [place] [address] 11/01/2022 Office Visit Family Medicine Galdino Andujar DO [address] [place] [address] 11/01/2022 Office Visit Family Medicine [place], Pharmacist [address] [place] [address] 11/22/2022 Home Visit [facility] Brooke Jose, RN [address] [place] [address] 12/28/2022 Office Visit Nephrology Erik Lenz MD [facility] [place] [address] 01/19/2023 PulmDiagnostic Pulmonary Function [place], Pft 132 [facility] [place] [address] 08/08/2023 Nurse Only Ancillary College, Nurse Annual Wellness Visit [address] [place] [address] Scheduled Procedures Name Priority Associated Diagnoses Date/Ti [...] Additional history exists CKD PHOS USE SMARTSET 94441 01/07/202312/25, 03/12/2021, 11/17/2020, Additional history exists DIABETES-FOOT EXAM 01/07/2023 01/07/2022, 0 01/14/2021, 11/07/2019, Additional history exists TSH FOR THYROID MEDICATION MONITORING YEARLY 01/07/2023 01/07/2022, 12/25/2020, 05/06/2020, Additional history exists Mammogram 02/11/2023 02/11/2022, 02/2021, 07/10/2019, Additional history exists GFR - Renal Function 03/14/2023 09/13/2022, 08/13/2022, 07/02/2022, Additional history exists DIABETES-EYE EXAM 05/24/2023 05/24/2022, , 04/07/2020, Additional history exists CKD HGB USE SMARTSET 57175 06/29/202306/29, 06/29/2022, 01/07/2022, Additional history exists Depression [...] on File Type Date Recorded Patient [place] Terminal Agent Expl anation POLST 03/19/2020 4:25 PM POLST [...] patient have Health Care Power of Construction Project Engineer? No Healthcare Agents on File Name Relationship Healthcare Agent Relationship Communication Galdino Camp Other - (no specific identity) Health Care Power of Construction Project Engineer Princess Allen Other - (no specific identity) Health Care Power of Construction Project Engineer Care Teams Multimedia Authoring Specialist Relationship Specialty Start Date End Date Galdino Andujar, DO [address] [place] [address] PCP - General Internal Medicine 01/07/22 documented as of this encounter
--- OUTSIDE RECORDS SUMMARY | 2023-06-01 04:20 | External Medical Summary | Summary of Care ---
Author Name Unknown Organization [place] [address] Care Team Providers Care Sap Basis Name Role Phone Galdino Andujar DO Primary Care Provider [phone] Reason for Visit * Reason Comments Follow Up Encounter Details Date Type Department Care Team Description 11/01/2022 Office Visit Family Practice [address] [place] [address] [place] [address] Galdino Andujar DO [address] [place] [address] 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 3b chronic kidney disease (HCC)*; Type 2 diabetes mellitus with stage 3b chronic kidney disease, with long-term current use of insulin (HCC); DM type 2 nursing care encounter ([facility]); Recurrent deep vein thrombosis (DVT) of both lower extremities (HCC); Chronic hypoxemic respiratory failure ([facility]); ILD (interstitial lung disease) ([facility]); Postsurgical hypothyroidism; Essential hypertension with goal blood pressure less than 140/90; Statin intolerance; Restless legs syndrome; Gastroesophageal reflux disease with esophagitis without hemorrhage; Primary osteoarthritis of left knee; Spinal stenosis of lumbar region without neurogenic claudication; Atherosclerosis of menominee coronary artery of menominee heart without angina pectoris; Anxiety state; Frank [...] 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/31/2021 Atherosclerosis of menominee coronary arter 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 12/31/2021 [...] percocet BID prn. Abnormality of gait 02/02/[address] [address] 08/19/2014 History of pulmonary [...] mRNA, LNP-s, No Pre serve, 2-Dose Series ([employer]) 01/08/2021,12/18/2020 COVID-19, LNP-s, No Preserve , Navarro-sucrose, Ages 12+ (Pfizer) 2022,10/01/2021 Pneumococcal Conjugate Vacci ne, 20-valent ([id number]) 03/12/2022 Pneumococcal Polysaccharide PPV23 (Pneumovax) 08/22/2009,06/15/2006 Seasonal [...] calluses yourself. Talk to your doctor or hazardous materials waste technician (a doctor who specializes in foot care) [...] the area doesnt appear to be healing. 2013-3334 [employer], [address] [place] [address], [place] [address]. All rights reserved. This information is not [...] Z79.899 Chronic diastolic congestive heart failure ([facility]) I50.32 Lumbar radiculopathy M54.16 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 [id number] chronic kidney disease ([facility]) I13.0, I50.32, N18.32 Hyperparathyroidism, secondary renal ([facility]) N25.81 Vasculitis ([facility]) I77.6 Primary osteoarthritis of left knee M17.12 Spinal stenosis of lumbar region without neurogenic claudication M48.061 Heparin 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) D75.829 Atherosclerosis of menominee coronary arter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 I25.10 Carotid artery stenosis, asymptomatic, right I65.21 Encounter for long-term (current) use of other medications Z79.899 Type 2 diabetes mellitus with stage 3b chronic kidney disease ([facility]) E11.22, N18.32 Type 2 diabetes mellitus with hemoglobin A1c goal of less than 8.0% ([facility]) E11.9 Recurrent deep vein thrombosis (DVT) of both lower extremities ([facility]) I82.403 Chronic hypoxemic respiratory failure ([facility]) J96.11 Chronic kidney disease, stage 3b ([facility]) N18.32 ILD (interstitial lung disease) ([facility]) J84.9 Moderate episode of recurrent major depressive disorder ([facility]) F33.1 Primary osteoarthritis of both knees M17.0 Type 2 diabetes mellitus with stage 3b chronic kidney disease, with long- term current use of insulin ([facility]) E11.22, N18.32, Z79.4 Anxiety state F41.1 Sacroiliitis, not elsewhere classified ([facility]) M46.1 Current Outpatient Medications Medication Sig Dispense [...] Diagnosis Date ELSIE (acute kidney injury) ([facility]) 06/12/2018 Allergic rhinitis due to other allergen Chronic hypoxemic respiratory failure ([facility]) 01/07/2022 Diverticulosis of colon 01/28/2006 Essential hypertension with goal blood pressure less than 140/90 02/22/2014 ELLIE (generalized anxiety disorder) 09/13/2009 Goiter [place] filter in place 08/19/2014 Heparin-induced thrombocytopenia 08/22/2009 History of pulmonary embolus (PE) 07/16/2014 HTN, goal below 140/90 Impetigo 09/27/2018 Obesity, BMI not known Perforation of intestine ([facility]) 1996 COLON -- 1996 Pneumonia in aspergillosis(484.6) 09/14/2009 Recurrent deep vein thrombosis (DVT) of both lower extremities ([facility]) 01/07/2022 Sleep apnea, obstructive Spinal stenosis of lumbar region without neurogenic claudication 07/15/2020 Spontaneous pneumothorax 09/14/2009 Statin intolerance 07/16/2014 Type 2 diabetes mellitus with hemoglobin A1c goal of less than 8.0% ([facility]) 01/07/2022 Past Surgical History: Procedure Laterality Date ARTHROPLASTY KNEE TOTAL Right 07/24/14 R COLONOSCOPY, DIAGNOSTIC (RECTUM) 02/18/2016 normal, repeat 10 yrs/[facility] COLONOSCOPY, GI REFERRAL OP 01/28/06 diverticulosis--repeat 10 years INCISION OF WINDP[place], PLANNED 06/03/2011 TRACHEOSTOMY PLANNED performed by DANNY HOLDER [place] [facility] INJECT DX/THER SUBSTANCE INTERLAMINAR LUMBAR/SACRAL W IMAGE GUIDE 05/26/2020 INJECTION SPINE LUMBAR OR SACRAL performed by Raj Ahn DO at OR [facility] INJECT DX/THER SUBSTANCE INTERLAMINAR LUMBAR/SACRAL W IMAGE GUIDE 05/14/2021 INJECTION SPINE LUMBAR OR SACRAL performed by Raj Ahn DO at OR [facility] INJECT DX/THER SUBSTANCE INTERLAMINAR LUMBAR/SACRAL W IMAGE GUIDE 08/13/2021 INJECTION SPINE LUMBAR OR SACRAL performed by Raj Ahn DO at OR [facility] KNEE ARTHROSCOPY/DEBRIDEMENT 07/[address] PERMANENT GASTROSTOMY TUBE 09/06/09 GASTROSTOMY WITH CONSTUCTION GASTRIC TUBE performed by AMADOU NUNEZ at [facility] REMOVAL OF THYROID GLAND 06/15/2011 THYROIDECTOMY INCLUDING SUBSTERNAL THYROID CERVICAL APPROACH performed by DANNY HOLDER at [place] [facility] REMOVE GALLBLADDER 09/06/09 CHOLECYSTECTOMY performed by AMADOU NUNEZ at [place] [facility] REPAIR RECURRENT INCISIONAL HERNIA 1998 REVISION OF COLOSTOMY, SIMPLE 1998 SACROILIAC JOINT INJECT W/GUIDANCE 07/28/2020 INJECTION SACROILIAC JOINT performed by Raj Ahn DO at OR [facility] SACROILIAC JOINT INJECT W/GUIDANCE 03/03/2022 INJECTION SACROILIAC JOINT performed by Raj Ahn DO at OR [facility] SUTURE, LARGE INTESTINE W/COLOSTOMY 1996 perforation R colon with colostomy VENA CAVA FILTER/LIGATION/CLIP 08/19/09 Frank filter placement through the right femoral 08/19/[address] Lerma at [facility] Review of patient's allergies indicates: Allergen Reactions [...] thrombosis (DVT) of both lower extremities ([facility]) Continue Apixaban Chronic hypoxemic respiratory failure (HCC) [...] claudication Continue Oxycodone and Duloxetine Atherosclerosis of menominee coronary artery of menominee heart without angina pectoris Anxiety state Continue Duloxetine and Clonazepam [place] filter in place Vitamin D deficiency - [...] Visit Family Medicine Mira Duong, Community [facility] Equip Maint Eng [address] [place] [address] 11/22/2022 Home Visit [facility] Brooke Jose, RN [address] [place] [address] 11/29/2022 Office Visit Family Medicine Galdino Andujar, DO [address] [place] [address] 11/29/2022 Home Visit Family Medicine Magaly Dean, [facility] Equip Maint Eng [address] [place] [address] 12/28/2022 Office Visit Nephrology Erik Lenz MD [address] [place] [address] 01/19/2023 PulmDiagnostic Pulmonary Function West, [address] [place] [address] 08/08/2023 Nurse Only Ancillary College, Nurse Annual Wellness Visit [address] [place] [address] Scheduled Orders Name Type Priority Associated Diagnoses [...] Additional history exists CKD PHOS USE SMARTSET 25159 01/07/202312/25, 03/12/2021, 11/17/2020, Additional history exists TSH FOR THYROID MEDICATION MONITORING YEARLY 01/07/2023 01/07/2022, 12/25/2020, 05/06/2020, Additional history exists Mammogram 02/11/2023 02/11/2022, 01/0 02/2021, 07/10/2019, Additional history exists GFR - Renal Function 03/14/2023 09/13/2022, 08/13/2022, 07/02/2022, Additional history exists DIABETES-EYE EXAM 05/24/2023 05/24/2022, , 04/07/2020, Additional history exists CKD HGB USE SMARTSET 90509 06/29/202306/29, 06/29/2022, 01/07/2022, Additional history exists Depression [...] lumbar region, without neurogenic claudication Atherosclerosis of menominee coronary artery of menominee heart without angina pectoris Anxiety state Anxiety state, unspecified [place] filter in place Other postprocedural status Vitamin D deficiency Unspecified vitamin D deficiency documented in this encounter Advance Directives Documents on File Type Date Recorded Patient Automation Software Engineer Expl anation POLST 03/19/2020 4:25 PM [...] the patient have Health Care Power of Consumer Banker? No Healthcare Agents on File Name Relationship Healthcare Agent Relationship Communication Galdino Camp Other - (no specific identity) Health Care Power of Consumer Banker Princess Thrashery Other - (no specific identity) Health Care Power of Consumer Banker Care Teams Sap Basis Relationship Specialty Start Date End Date Galdino Andujar, DO [address] [place] [address] PCP - General Internal Medicine 01/07/22 documented as of this encounter
--- OUTSIDE RECORDS SUMMARY | 2023-06-01 04:20 | External Medical Summary ---
Author Name Unknown Address Unknown Organization K01:[facility] - [address] [facility] [address] Laboratory Report Ordering Provider Test Date Status JAG SHULTZ 11/01/2022 14:13:01 Final Observation Date Value Abnormality Reference (Units ) Status BUN 11/01/2022 14:13:01 25 Above high normal 6-20 (mg/dL) Final Creatinine 11/01/2022 14:13:01 1.6 Above high normal 0.5-1.0 (mg/dL) Final Glomerular filtration rate/1.73 sq M.predicted [Volume Rate/Area] in Serum, Plasma or Blood by Creatinine-based formula (CKD-EPI) 11/01/2022 14:13:01 35 Below low normal >=60 (mL/min) Final Performing Location [facility]ORY [facility] - [address] [place] [address]
--- OUTSIDE RECORDS SUMMARY | 2023-06-01 04:20 | External Medical Summary ---
Author Name Unknown Address Unknown Organization K01:[facility] [place] [address] [place] [address] Laboratory Report Ordering Provider Test Date Status JAG SHULTZ 11/01/2022 14:18:03 Final Observation Date Value Abnormality Reference (Units ) Status Albumin, Urine 11/01/2022 14:18:03 <1.20 (mg/dL) Final Creatinine, Urine 11/01/2022 14:18:03 70 (mg/dL) Final Albumin/Creatinine [Mass Ratio] in Urine 11/01/2022 14:18:03 <17 <30 (mg/g Creat) Final Performing Location [facility] [place] [address] [place] [address]
--- OUTSIDE RECORDS SUMMARY | 2023-06-01 04:20 | External Medical Summary | Summary of Care ---
Author Name Unknown Organization [place] [address] Care Team Providers Care Aircraft Power Plant Assembler Name Role Phone Galdino Andujar DO Primary Care Provider [phone] Reason for Visit * Reason Onset Date Comments [facility]: Maintenance 10/27/2022 Encounter Details Date Type Department Care Team Description 10/27/2022 Scheduled Telephone [facility], [facility] [address] [place] [address] Coordinator, [facility] [address] [facility] [place] [address] Allergies Active Allergy Reactions Severity Noted Date [...] lpm continuous 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:At Risk 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 Abnormality of gait 02/02/[address] 08/19/2014 History of pulmonary [...] mRNA, LNP-s, No Pre serve, 2-Dose Series ([employer]) 01/08/2021,12/18/2020 COVID-19, LNP-s, No Preserve , Navarro-sucrose, Ages 12+ (Pfizer) 2022,10/01/2021 Pneumococcal Conjugate Vacci ne, 20-valent ([id number]) 03/12/2022 Pneumococcal Polysaccharide PPV23 (Pneumovax) 08/22/2009,06/15/2006 Seasonal [...] Telephone Encounter - Suzanne Evans LPN - 10/28/2022 12:10 PM EST Noted thank you * Telephone Encounter - Suaznne Evans LPN - 10/27/2022 11:36 AM EST Images from the original note were not included. [facility] Telephonic Nurse Follow-Up Call [facility] Subprogram: Focused Care Management (3-9 months) Follow Up Call Type: Routine follow up call / Status Check Acute issue requiring follow-up call: Other: vertigo/nausea Objective: 10/11/2022 09/29/2022 09/23/2022 09/13/2022 09/06/2022 VITALS ACROSS ENCOUNTERS BP 130/60 136/74 108/62 [...] Denies fever, chills, sob Aware to call [facility] with any changes in symptoms or concerns Routing to care team Disposition: Routed to [facility] and/or [facility] Care Team for further advice Future Visits Scheduled: Future Appointments-next 60 days Date/Time Provider Specialty Dept Phone 10/27/2022 1:00 PM [facility] Geoffrey Cotton Presser [facility] [phone] 11/01/2022 11:30 AM Mira Duong, [facility] Senior Quantity Surveyor Family Medicine [phone] 11/01/2022 1:00 PM (Arrive by 12:45 PM) Galdino Andujar DO Family Medicine [phone] 11/01/2022 1:40 PM (Arrive by 1:25 PM) Pharmacist [address] [place] [address] Family Medicine [phone] 11/22/2022 10:00 AM Brooke Jose RN [facility] [phone] 12/28/2022 11:00 AM (Arrive by 10:45 AM) Erik Lenz MD Nephrology [phone] 01/19/2023 2:00 PM [facility] [place] [facility] Function [phone] 08/08/2023 2:00 PM Nurse Annual Wellness Visit [address] [facility] Ancillary [phone] Suzanne Evans LPN documented in this encounter Plan of Treatment Upcoming Encounters Date Type Specialty Care Team Description 11/01/2022 Home Visit Family Medicine Mira Duong, Community Health Senior Quantity Surveyor [address] [place] [address] 11/01/2022 Office Visit Family Medicine Galdino Andujar, DO [address] [place] [address] 11/01/2022 Office Visit [facility], Pharmacist [address] [address] 11/22/2022 Home Visit [facility] Brooke Jose RN [address] [place] [address] 12/28/2022 Office Visit Nephrology Erik Lenz MD [address] [place] [address] 01/19/2023 PulmDiagnostic Pulmonary Function West, Pft [address] [place] [address] 08/08/2023 Nurse Only Ancillary College, Nurse Annual Wellness Visit [address] [address] Scheduled Procedures Name Priority Associated Diagnoses Date/Ti [...] Additional history exists CKD PHOS USE SMARTSET 83133 01/07/202312/25, 03/12/2021, 11/17/2020, Additional history exists DIABETES-FOOT EXAM 01/07/2023 01/07/2022, 0 01/14/2021, 11/07/2019, Additional history exists TSH FOR THYROID MEDICATION MONITORING YEARLY 01/07/2023 01/07/2022, 12/25/2020, 05/06/2020, Additional history exists Mammogram 02/11/2023 02/11/2022, 01/0 02/2021, 07/10/2019, Additional history exists GFR - Renal Function 03/14/2023 09/13/2022, 08/13/2022, 07/02/2022, Additional history exists DIABETES-EYE EXAM 05/24/2023 05/24/2022, , 04/07/2020, Additional history exists CKD HGB USE SMARTSET 22615 06/29/202306/29, 06/29/2022, 01/07/2022, Additional history exists Depression [...] Documents on File Type Date Recorded Patient Shellfish Harvester Expl anation POLST 03/19/2020 4:25 PM POLST [...] the patient have Health Care Power of Laundry Aide? No Healthcare Agents on File Name Relationship Healthcare Agent Relationship Communication Galdino Camp Other - (no specific identity) Health Care Power of Laundry Aide Princess Allen Other - (no specific identity) Health Care Power of Laundry Aide Care Teams Aircraft Power Plant Assembler Relationship Specialty Start Date End Date Galdino Andujar, DO [address] [place] [address] PCP - General Internal Medicine 01/07/22 documented as of this encounter
--- OUTSIDE RECORDS SUMMARY | 2023-06-01 04:21 | External Medical Summary | Summary of Care ---
Author Name Unknown [place] [address] Care Team Providers Care Brick Carrier Name Role Phone Galdino Andujar DO Primary Care Provider [phone] Reason for Visit * Reason Onset Date Comments [facility]: Maintenance 10/13/2022 Encounter Details Date Type Department Care Team Description 10/13/2022 Scheduled Telephone [facility], [facility] [address] [place] [address] Coordinator, [facility] [address] [facility] [place] [address] Allergies Active Allergy Reactions Severity Noted Date [...] as of this encounter (statuses as of 10/13/2022) Medications Medication Sig Dispensed Refills Start Date End Date Status DEMIAN DELFRANTZ LANCETS 33G MISC Check blood sugars 3-4 times daily 180 Each 5 08/01/2018 Active oxygen GASIndications:ELISSA (obstructive sleep apnea) 2 lpm continuous 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:Auto Washer zahra diastolic congestive heart failure (HCC) [...] mellitus with hemoglobin A1c goal of 7.0%-8.0% ([facility]) INJECT 60 UNITS UNDER THE [...] hemoglobin A1c goal of less than 8.0% ([facility]) Take 1 Tablet (500 mg) [...] mellitus with hemoglobin A1c goal of 7.0%-8.0% ([facility]) Inject 40-45 units with meals + sliding scale 1 units for every 25 units BG > 150. 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 Abnormality of gait 02/02/[address] 08/19/2014 History of pulmonary [...] as of this encounter (statuses as of 10/13/2022) Resolved Problems Problem Noted Date Resolved Date [...] as of this encounter (statuses as of 10/13/2022) Immunizations Name Administration Dates Next Due COVID-19 mRNA, LNP-s, No Pre serve, 2-Dose Series ([employer]) 01/08/2021,12/18/2020 COVID-19, LNP-s, No Preserve , Navarro-sucrose, Ages 12+ (Pfizer) 2022,10/01/2021 Pneumococcal Conjugate Vacci ne, 20-valent ([id number]) 03/12/2022 Pneumococcal Polysaccharide PPV23 (Pneumovax) 08/22/2009,06/15/2006 Seasonal [...] encounter Miscellaneous Notes * Telephone Encounter - Little Yoon, CHUYITA - 10/13/2022 1:14 PM EST Images from the original note were not included. [facility] Telephonic Nurse Follow-Up Call [facility] Subprogram: Focused Care Management (3-9 months) Follow Up Call Type: Routine follow up call / Status Check Acute issue requiring follow-up call: Other: f/u cold symptoms Objective: 10/11/2022 09/29/2022 09/23/202209/13/2022 09/06/2022 VITALS ACROSS ENCOUNTERS BP 130/60 136/74 [...] Remote Patient Monitoring: NONE Oxygen Needs: NO supplemental oxygen needs identified DME Needs: NO DME needs identified Medications: No medication or dose adjustments made during acute episode Subjective: Condition Status: Symptoms resolved and back to baseline Current Concerns: Patient reports that she is feeling better. Cold symptoms have decreased and she voices no complaints. Encouraged patient to call [facility] with any new or worsening symptoms. She voiced understanding. Disposition: Issue resolved. All appropriate follow up scheduled. Future Visits Scheduled: Future Appointments-next 60 days Date/Time Provider Specialty Dept Phone 10/18/2022 3:00 PM Pharmacist [address] [facility] Medicine [phone] 11/01/2022 11:30 AM Mira Duong [facility] Health Repair Service Dispatcher [facility] [phone] 11/01/2022 1:00 PM (Arrive by 12:45 PM) Galdino Andujar DO [facility] [phone] 11/22/2022 10:00 AM LEXI [facility] [phone] 01/19/2023 2:00 PM Pft [place] [facility] [phone] 08/08/2023 2:00 PM Nurse Annual Wellness Visit 65 [facility] Ancillary [phone] Little Yoon LPN documented in this encounter Plan of Treatment Upcoming Encounters Date Type Specialty Care Team Description 10/18/2022 Telemedicine [facility], Pharmacist [address] [place] [address] 11/01/2022 Home Visit Family Medicine Mira Duong, Community Health Repair Service Dispatcher [address] [place] [address] 11/01/2022 Office Visit [facility] Medicine Galdino Andujar DO [address] [place] [address] 11/22/2022 Home Visit [facility] Brooke Jose RN [address] [place], [place] [address] [address] 01/19/2023 PulmDiagnostic Pulmonary Function West, Pft [address] [place] [address] 08/08/2023 Nurse Only Ancillary College, Nurse Annual Wellness Visit [address] [place] [address] Scheduled Procedures Name Priority Associated Diagnoses Date/Ti [...] Additional history exists CKD PHOS USE SMARTSET 03650 01/07/202312/25, 03/12/2021, 11/17/2020, Additional history exists DIABETES-FOOT EXAM 01/07/2023 01/07/2022, 0 01/14/2021, 11/07/2019, Additional history exists TSH FOR THYROID MEDICATION MONITORING YEARLY 01/07/2023 01/07/2022, 12/25/2020, 05/06/2020, Additional history exists GFR - Renal Function 03/14/2023 09/13/2022, 08/13/2022, 07/02/2022, Additional history exists DIABETES-EYE EXAM 05/24/2023 05/24/2022, , 04/07/2020, Additional history exists CKD HGB USE SMARTSET 41903 06/29/202306/29, 06/29/2022, 01/07/2022, Additional history exists Depression Screening, Annual for Pts 12 and Over 09/29/2023 09/29/2022, 06/12/2018 Mammogram 02/12/2024 02/11/2022, 01/0 02/2021, 07/10/2019, Additional history exists Colonoscopy: Ages 45-75 02/17/2026 [...] Documents on File Type Date Recorded Patient Bulk Gas Specialist Expl anation POLST 03/19/2020 4:25 PM [...] the patient have Health Care Power of Rn Renal? No Healthcare Agents on File Name Relationship Healthcare Agent Relationship Communication Galdino Camp Other - (no specific identity) Health Care Power of Rn Renal Princess Allen Other - (no specific identity) Health Care Power of Rn Renal Care Teams Brick Carrier Relationship Specialty Start Date End Date Galdino Andujar, DO [address] [place] [address] PCP - General Internal Medicine 01/07/22 documented as of this encounter
--- OUTSIDE RECORDS SUMMARY | 2023-06-01 04:21 | External Medical Summary | Summary of Care ---
Author Name Unknown Organization [place] [address] Care Team Providers Care Automotive Power Electronics Engineer Name Role Phone Galdino Andujar DO Primary Care Provider [phone] Reason for Visit * Reason Onset Date Comments [facility]: Maintenance 10/12/2022 Encounter Details Date Type Department Care Team Description 10/12/2022 Scheduled Telephone [facility], [facility] [address] [place] [address] Coordinator, [facility] 132 [facility] [place] [address] Allergies Active Allergy Reactions Severity Noted Date [...] as of this encounter (statuses as of 10/12/2022) Medications Medication Sig Dispensed Refills Start Date End Date Status DEMIAN DELFRANTZ LANCETS 33G MISC Check blood sugars 3-4 times daily 180 Each 5 08/01/2018 Active oxygen GASIndications:ELISSA (obstructive sleep apnea) 2 lpm continuous 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: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 Abnormality of gait 02/02/[address] 08/19/2014 History of pulmonary [...] as of this encounter (statuses as of 10/12/2022) Resolved Problems Problem Noted Date Resolved Date [...] as of this encounter (statuses as of 10/12/2022) Immunizations Name Administration Dates Next Due COVID-19 mRNA, LNP-s, No Pre serve, 2-Dose Series (ClaimReturn) 01/08/2021,12/18/2020 COVID-19, LNP-s, No Preserve , Navarro-sucrose, Ages 12+ (Pfizer) 2022,10/01/2021 Pneumococcal Conjugate Vacci ne, 20-valent ([id number]) 03/12/2022 Pneumococcal Polysaccharide PPV23 (Pneumovax) 08/22/2009,06/15/2006 Seasonal [...] Telephone Encounter - Little Yoon, CHUYITA - 10/12/2022 1:33 PM EST Images from the original note were not included. [facility] Telephonic Nurse Follow-Up Call [facility] Subprogram: Focused Care Management (3-9 months) Follow Up Call Type: Routine follow up call / Status Check Acute issue requiring follow-up call: Other: f/u viral swab Objective: 10/11/2022 09/29/2022 09/23/202209/13/2022 09/06/2022 VITALS ACROSS [...] symptoms but not at baseline Current Concerns: Patient reports that she is feeling better today, not as congested. Viral swab neg, patient alreadyaware. She denies any current needs. Encouraged her to call [facility] with any new or worsening symptoms. Disposition: Follow up call scheduled for tomorrow with CHUYITA Nut Chopper Future Visits Scheduled: Future Appointments-next 60 days Date/Time Provider Specialty Dept Phone 10/12/2022 2[facility]00 [facility] [phone] 10/13/2022 10:00 AM [facility] [phone] 10/18/2022 3:00 PM Pharmacist [address] [facility] [phone] 11/01/2022 11:30 AM Mira Duong, [facility] Locomotive Boilermaker [facility] [phone] 11/01/2022 1:00 PM (Arrive by 12:45 PM) Galdino Andujar DO [facility] [phone] 11/22/2022 10:00 AM Brooke Jose RN [facility] [phone] 01/19/2023 2:00 PM [facility] [facility] [phone] 08/08/2023 2:00 PM Nurse Annual Wellness Visit [address] [place] [address] Ancillary [phone] Little Yoon LPN documented in this encounter Plan of Treatment Upcoming Encounters Date Type Specialty Care Team Description 10/13/2022 Scheduled Telephone [facility] Scrap Handler, [facility] Geoffrey Cisneros [facility] [place] [address] 10/18/2022 Telemedicine [facility], Pharmacist [address] [address] [facility] [address] 11/01/2022 Home Visit Family Medicine Mira Duong, [facility] Locomotive Boilermaker [address] [facility] [place] [address] 11/01/2022 Office Visit Family Medicine Galdino Andujar, DO 293 [facility] [place] [address] 11/22/2022 Home Visit [facility] Brooke Jose, RN 132 [place] [address] 01/19/2023 PulmDiagnostic Pulmonary Function West, Pft 132 [facility] [place] [address] 08/08/2023 Nurse Only Ancillary College, Nurse Annual Wellness Visit [address] [facility] [place] [address] Scheduled Procedures Name Priority Associated Diagnoses Date/Ti [...] Additional history exists CKD PHOS USE SMARTSET 96399 01/07/202312/25, 03/12/2021, 11/17/2020, Additional history exists DIABETES-FOOT EXAM 01/07/2023 01/07/2022, 0 01/14/2021, 11/07/2019, Additional history exists TSH FOR THYROID MEDICATION MONITORING YEARLY 01/07/2023 01/07/2022, 12/25/2020, 05/06/2020, Additional history exists GFR - Renal Function 03/14/2023 09/13/2022, 08/13/2022, 07/02/2022, Additional history exists DIABETES-EYE EXAM 05/24/2023 05/24/2022, , 04/07/2020, Additional history exists CKD HGB USE SMARTSET 39400 06/29/202306/29, 06/29/2022, 01/07/2022, Additional history exists Depression Screening, Annual for Pts 12 and Over 09/29/2023 09/29/2022, 06/12/2018 Mammogram 02/12/2024 02/11/2022, 02/2021, 07/10/2019, Additional history exists Colonoscopy: Ages [...] Documents on File Type Date Recorded Patient General Manager In Training Expl anation POLST 03/19/2020 4:25 PM POLST [...] the patient have Health Care Power of Microbiology Coordinator? No Healthcare Agents on File Name Relationship Healthcare Agent Relationship Communication Galdino Camp Other - (no specific identity) Health Care Power of Microbiology Coordinator Princess Allen Other - (no specific identity) Health Care Power of Microbiology Coordinator Care Teams Automotive Power Electronics Engineer Relationship Specialty Start Date End Date Galdino Andujar, DO [address] [place] [address] PCP - General Internal Medicine 01/07/22 documented as of this encounter
--- OUTSIDE RECORDS SUMMARY | 2023-06-01 04:21 | External Medical Summary | Summary of Care ---
Author Name Unknown Organization [place] [address] Care Team Providers Care Forestry Crew Chief Name Role Phone Galdino Andujar DO Primary Care Provider [phone] Reason for Visit * Reason Onset Date Comments [facility]: Maintenance 10/27/2022 Encounter Details Date Type Department Care Team Description 10/27/2022 Scheduled Telephone [facility], [facility] [address] [place] [address] Coordinator, [facility] 132 [facility] [place] [address] Allergies Active Allergy Reactions Severity Noted Date [...] as of this encounter (statuses as of 10/27/2022) Medications Medication Sig Dispensed Refills Start Date End Date Status DEMIAN DELFRANTZ LANCETS 33G MISC Check blood sugars 3-4 times daily 180 Each 5 08/01/2018 Active oxygen GASIndications:ELISSA (obstructive sleep apnea) 2 lpm continuous 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:Light Equipment Operator zahra diastolic congestive heart failure (HCC) [...] as of this encounter (statuses as of 10/27/2022) Active Problems Problem Noted Date 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 Abnormality of gait 02/02/[address] 08/19/2014 History of pulmonary [...] as of this encounter (statuses as of 10/27/2022) Resolved Problems Problem Noted Date Resolved Date [...] as of this encounter (statuses as of 10/27/2022) Immunizations Name Administration Dates Next Due COVID-19 mRNA, LNP-s, No Pre serve, 2-Dose Series (Dynamo Micropower) 01/08/2021,12/18/2020 COVID-19, LNP-s, No Preserve , Navarro-sucrose, Ages 12+ (Pfizer) 2022,10/01/2021 Pneumococcal Conjugate Vacci ne, 20-valent ([id number]) 03/12/2022 Pneumococcal Polysaccharide PPV23 (Pneumovax) 08/22/2009,06/15/2006 Seasonal [...] [facility] Telephonic Nurse Follow-Up Call [facility] Subprogram: Focused Care Management (3-9 months) [...] Denies fever, chills, sob Aware to call [facility] with any changes in symptoms or concerns Routing to care team Disposition: Routed to [facility] and/or [facility] Care Team for further advice Future Visits Scheduled: Future Appointments-next 60 days Date/Time Provider Specialty Dept Phone 10/27/2022 1:00 PM [facility] Geoffrey Ager Tender [facility] [phone] 11/01/2022 11:30 AM Mira Duong [facility] Health State Assessed Properties Director Family Medicine [phone] 11/01/2022 1:00 PM (Arrive by 12:45 PM) Galdino Andujar DO Family Medicine [phone] 11/01/2022 1:40 PM (Arrive by 1:25 PM) Pharmacist [address] [place] [address] Family Medicine [phone] 11/22/2022 10:00 AM Brooke Jose RN [facility] [phone] 12/28/2022 11:00 AM (Arrive by 10:45 AM) Erik Lenz MD Nephrology [phone] 01/19/2023 2:00 PM Pft [place] [facility] [phone] 08/08/2023 2:00 PM Nurse Annual Wellness Visit [address] [place] [address] Ancillary [phone] Suzanne Evans LPN documented in this encounter Plan of Treatment Upcoming Encounters Date Type Specialty Care Team Description 11/01/2022 Home Visit Family Medicine Mira Duong, Community Health State Assessed Properties Director [facility] [place] [address] 11/01/2022 Office Visit Family Medicine Galdino Andujar DO 293 [place] [address] 11/01/2022 Office Visit Family Medicine [place], Pharmacist [address] [place] [address] 11/22/2022 Home Visit [facility] Brooke Jose, RN 132 [place] [address] 12/28/2022 Office Visit Nephrology Erik Lenz MD 200 [facility] [place] [place] [address] 01/19/2023 PulmDiagnostic Pulmonary Function West, Pft 132 [facility] [place] [address] 08/08/2023 Nurse Only Ancillary College, Nurse Annual Wellness Visit [address] [place] [address] Scheduled Procedures Name Priority Associated Diagnoses Date/Ti [...] Additional history exists CKD PHOS USE SMARTSET 84213 01/07/202312/25, 03/12/2021, 11/17/2020, Additional history exists DIABETES-FOOT EXAM 01/07/2023 01/07/2022, 0 01/14/2021, 11/07/2019, Additional history exists TSH FOR THYROID MEDICATION MONITORING YEARLY 01/07/2023 01/07/2022, 12/25/2020, 05/06/2020, Additional history exists Mammogram 02/11/2023 02/11/2022, 02/2021, 07/10/2019, Additional history exists GFR - Renal Function 03/14/2023 09/13/2022, 08/13/2022, 07/02/2022, Additional history exists DIABETES-EYE EXAM 05/24/2023 05/24/2022, , 04/07/2020, Additional history exists CKD HGB USE SMARTSET 43585 06/29/202306/29, 06/29/2022, 01/07/2022, Additional history exists Depression [...] Documents on File Type Date Recorded Patient Linux System Administrator Expl anation POLST 03/19/2020 4:25 PM [...] the patient have Health Care Power of Honing Machine Operator? No Healthcare Agents on File Name Relationship Healthcare Agent Relationship Communication Galdino Camp Other - (no specific identity) Health Care Power of Honing Machine Operator Princess Allen Other - (no specific identity) Health Care Power of Honing Machine Operator Care Teams Forestry Crew Chief Relationship Specialty Start Date End Date Galdino Andujar, DO 293 [place] [address] PCP - General Internal Medicine 01/07/22 documented as of this encounter
--- OUTSIDE RECORDS SUMMARY | 2023-06-01 04:21 | External Medical Summary | Summary of Care ---
Author Name Unknown Organization [place] [address] Care Team Providers Care Insurance Sales Assistant Name Role Phone Galdino Andujar DO Primary Care Provider [phone] Reason for Visit * Reason Comments Outpatient Testing Encounter Details Date Type Department Care Team Description 10/11/2022 Laboratory Laboratory [facility] [address] [place] [id number] Pod3, Specimen Drop Off [facility] [place] [address] [place] [address] Nasal congestion Allergies Active Allergy Reactions Severity Noted Date [...] as of this encounter (statuses as of 10/11/2022) Medications Medication Sig Dispensed Refills Start Date End Date Status DEMIAN BISWAS LANCETS 33G MISC Check blood sugars 3-4 times daily 180 Each 5 08/01/2018 Active oxygen GASIndications:ELISSA (obstructive sleep apnea) 2 lpm continuous 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:Carriage Rider zahra diastolic congestive heart failure (HCC) If [...] 7.0%-8.0% ([facility]) INJECT 60 UNITS UNDER THE SKIN [...] of 7.0%-8.0% ([facility]) Inject 40-45 units with meals + sliding scale 1 units for every 25 units BG > 150. 121 mL 3 10/04/2022 Active documented as of this encounter (statuses as of 10/11/2022) Active Problems Problem Noted Date Type 2 [...] percocet BID prn. Abnormality of gait 02/02/[address] 08/19/2014 History of pulmonary [...] as of this encounter (statuses as of 10/11/2022) Resolved Problems Problem Noted Date Resolved Date [...] 76%, time <89% 6:21 hours, TINY 47 DH Nontoxic uninodular goiter 06/16/201108/17 Body mass index [...] as of this encounter (statuses as of 10/11/2022) Immunizations Name Administration Dates Next Due COVID-19 mRNA, LNP-s, No Pre serve, 2-Dose Series (Angelantoni) 01/08/2021,12/18/2020 COVID-19, LNP-s, No Preserve , Navarro-sucrose, Ages 12+ (Pfizer) 2022,10/01/2021 Pneumococcal Conjugate Vacci ne, 20-valent ([id number]) 03/12/2022 Pneumococcal Polysaccharide PPV23 (Pneumovax) 08/22/2009,06/15/2006 Seasonal [...] Encounters Date Type Specialty Care Team Description 10/12/2022 Scheduled Telephone [facility] Chief Resource Officer, [place] Cisneros [address] [place] [address] 10/13/2022 Scheduled Telephone [facility] Chief Resource Officer, [place] Csineros [address] [place] [address] 10/18/2022 [facility], Pharmacist 65 [facility] 293 [place] [address] 11/01/2022 Home Visit Family Medicine Mira Duong, Community Health Saddle Lining Stitcher [address] [place] [address] 11/01/2022 Office Visit Family Medicine Galdino Andujar, DO 293 [place] [address] 11/22/2022 Home Visit [facility] Brooke Jose RN [address] [place] [address] 01/19/2023 PulmDiagnostic Pulmonary Function [facility], Pft [address] [facility] [address] 08/08/2023 Nurse Only Ancillary College, Nurse Annual Wellness Visit [address] [place] [address] Pending Results Name Type Priority Associated Diagnoses Date /Time RESPIRATORY PATHOGEN PANEL, PCR Lab Routine Nasal congestion 10/11/2022 12:14 PM EST Scheduled Procedures Name Priority Associated Diagnoses Date/Ti [...] Additional history exists CKD PHOS USE SMARTSET 33320 01/07/202312/25, 03/12/2021, 11/17/2020, Additional history exists DIABETES-FOOT EXAM 01/07/2023 01/07/2022, 0 01/14/2021, 11/07/2019, Additional history exists TSH FOR THYROID MEDICATION MONITORING YEARLY 01/07/2023 01/07/2022, 12/25/2020, 05/06/2020, Additional history exists GFR - Renal Function 03/14/2023 09/13/2022, 08/13/2022, 07/02/2022, Additional history exists DIABETES-EYE EXAM 05/24/2023 05/24/2022, , 04/07/2020, Additional history exists CKD HGB USE SMARTSET 91259 06/29/202306/29, 06/29/2022, 01/07/2022, Additional history exists Depression [...] as of this encounter Visit Diagnoses Diagnosis Nasal congestion Other diseases of nasal cavity and sinuses documented in this encounter Additional Health Concerns Infection Onset Date Last Indicated Resolved Time Respiratory Rule-Out 10/11/2022 10/11/2022 documented as of this encounter Advance Directives Documents on File Type Date Recorded Patient Tile Power Shear Operator Andre echevarria POL 03/19/2020 4:25 PM POLST Latest Code [...] the patient have Health Care Power of Shirt Marker? No Healthcare Agents on File Name Relationship Healthcare Agent Relationship Communication Galdino Camp Other - (no specific identity) Health Care Power of Shirt Marker Princess Allen Other - (no specific identity) Health Care Power of Shirt Marker Care Teams Insurance Sales Assistant Relationship Specialty Start Date End Date Galdino Andujar, DO [address] [place] [address] PCP - General Internal Medicine 01/07/22 documented as of this encounter
--- OUTSIDE RECORDS SUMMARY | 2023-06-01 04:21 | External Medical Summary | Summary of Care ---
Author Name Unknown Organization [place] [address] Care Team Providers Care Data Entry Machine Operator Name Role Phone Galdino Andujar DO Primary Care Provider [phone] Reason for Visit * Reason Comments Dosage Adjustment Via Phone (anticoag Cl inic) Diabetes Follow-Up Encounter Details Date Type Department Care Team Description 10/18/2022 [facility]icine [facility] [address] [place] [address] [place], Pharmacist [address] [address] Type 2 diabetes mellitus with stage 3b chronic kidney disease, with long-term current use of insulin ([facility])* Allergies Active Allergy Reactions Severity Noted Date [...] as of this encounter (statuses as of 10/18/2022) Medications Medication Sig Dispensed Refills Start Date End Date Status ONETOUCH DELICA LANCETS 33G MISC Check blood sugars 3-4 times daily 180 Each 5 08/01/2018 Active oxygen GASIndications:ELISSA (obstructive sleep apnea) 2 lpm continuous 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:Intravenous Therapy Nurse zahra diastolic congestive heart failure (HCC) If [...] of 7.0%-8.0% ([facility]) INJECT 60 UNITS UNDER THE SKIN EVERY [...] stage 3 ([facility]),Chronic diastolic congestive heart failure (HCC) Take 1 Capsule (400 mg) by mouth in the morning and 1 Capsule (400 mg) before bedtime. 60 Capsule 5 08/25/2022 Active metFORMIN HCl ER 500 MG Oral Tablet Extended Release 24 Hour (Glucophage XR)Indications:Type 2 diabetes mellitus with hemoglobin A1c goal of less than 8.0% ([facility]) Take 1 Tablet (500 mg) by mouth [...] stage 3 ([facility]),Chronic diastolic congestive heart failure (HCC) Take 1 [...] of 7.0%-8.0% ([facility]) Inject 40-45 units with meals + sliding scale 1 units for every 25 units BG > 150. 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 Abnormality of gait 02/02/[address] [place] in place 08/19/2014 History of pulmonary [...] as of this encounter (statuses as of 10/18/2022) Resolved Problems Problem Noted Date Resolved Date [...] as of this encounter (statuses as of 10/18/2022) Immunizations Name Administration Dates Next Due COVID-19 mRNA, LNP-s, No Pre serve, 2-Dose Series ([employer]) 01/08/2021,12/18/2020 COVID-19, LNP-s, No Preserve , Navarro-sucrose, Ages 12+ (Pfizer) 2022,10/01/2021 Pneumococcal Conjugate Vacci ne, 20-valent ([id number]) 03/12/2022 Pneumococcal Polysaccharide PPV23 (Pneumovax) 08/22/2009,06/15/2006 Seasonal [...] encounter Progress Notes * Frances Duong, [facility] - 10/18/2022 3:06 PM EST Images from the original note were not included. Diabetes telephone follow - up 10/18/2022 Patient Phone Numbers - Reason for contacting patient: Following up with patient on blood sugars after restarting her Dexcom on phone. - Current diabetic medications: INCREASE: Novolog - 40 units withbreakfast, 44 units lunch and 45 units with supper+ SS 1:25 >150 Tresiba 60 units atbedtime Trulicity 4.5 mg weekly-s Metformin ER 500 mg 1 tablet daily [id number]/13/22 - Glucose review/ SMBG: Therapy Management Assessment/Plan: 1) Diabetes: Overall averages are good, however patient is having some significant lows after highs. Upon further questioning, patient reports using post-meal sugars to dose the sliding scale which is resulting in too much novolog. ADJUST Novolog - 40 units withbreakfast, 44 units lunch and 45 units with supper+ SS 1:25 >150 before meals Decrease Tresiba 56 units atbedtime Trulicity 4.5 mg weekly-s Metformin ER 500 mg 1 tablet daily [id number]/min09/13/22 Follow up in 2 weeks in office. Frances Huerta [facility], Pharm D Clinical Pharmacist Medication Therapy [facility] 10/18/2022, 3:06 PM documented in this encounter Plan of Treatment Upcoming Encounters Date Type Specialty Care Team Description 11/01/2022 Home Visit Family Medicine Mira Duong, Community Health Heel Nailing Machine Operator [address] [place] [address] 11/01/2022 Office Visit Family Medicine Galdino Andujar, [address] [place] [address] 11/01/2022 Office Visit [facility], Pharmacist [address] [facility] 293 [place] [address] 11/22/2022 Home Visit [facility] Brooke Jose, RN [address] [place] [address] 12/28/2022 Office Visit Nephrology [facility]enz MD [address] [facility] [address] 01/19/2023 PulmDiagnostic Pulmonary Function [place], Pft [address] [place] [address] 08/08/2023 Nurse Only Ancillary College, Nurse Annual Wellness Visit [address] [place] [address] Scheduled Procedures Name Priority Associated Diagnoses Date/Ti [...] Additional history exists CKD PHOS USE SMARTSET 02814 01/07/202312/25, 03/12/2021, 11/17/2020, Additional history exists DIABETES-FOOT EXAM 01/07/2023 01/07/2022, 0 01/14/2021, 11/07/2019, Additional history exists TSH FOR THYROID MEDICATION MONITORING YEARLY 01/07/2023 01/07/2022, 12/25/2020, 05/06/2020, Additional history exists Mammogram 02/11/2023 02/11/2022, 02/2021, 07/10/2019, Additional history exists GFR - Renal Function 03/14/2023 09/13/2022, 08/13/2022, 07/02/2022, Additional history exists DIABETES-EYE EXAM 05/24/2023 05/24/2022, , 04/07/2020, Additional history exists CKD HGB USE SMARTSET 25849 06/29/202306/29, 06/29/2022, 01/07/2022, Additional history exists Depression [...] Documents on File Type Date Recorded Patient [place] Roofer Helper Expl anation POLST 03/19/2020 4:25 PM POLST [...] the patient have Health Care Power of Hot Air Furnace Installer Repairer? No Healthcare Agents on File Name Relationship Healthcare Agent Relationship Communication Galdino Camp Other - (no specific identity) Health Care Power of Hot Air Furnace Installer Repairer Princess Staplesfany Other - (no specific identity) Health Care Power of Hot Air Furnace Installer Repairer Care Teams Data Entry Machine Operator Relationship Specialty Start Date End Date Galdino Andujar, DO [address] [place] [address] PCP - General Internal Medicine 01/07/22 documented as of this encounter
--- OUTSIDE RECORDS SUMMARY | 2023-06-01 04:21 | External Medical Summary | Summary of Care ---
Author Name Unknown Organization [place] [address] Care Team Providers Care Lorry Weigher Name Role Phone Galdino Andujar DO Primary Care Provider Reason for Visit * Reason Onset Date Comments COVID-19 Screening 10/12/2022 Encounter Details Date Type Department Care Team Description 10/12/2022 Telephone COVID19 Screening [facility] DEPT CLOSED 07/07/21 [address] [place] [id number], Automated Provider COVID-19 Screening Allergies Active Allergy Reactions Severity Noted Date [...] lpm continuous 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:Inspector Clip On Sunglasses zahra diastolic congestive heart failure (HCC) If [...] hemoglobin A1c goal of 7.0%-8.0% ([facility]) INJECT 60 UNITS UNDER THE SKIN [...] goal of less than 8.0% ([facility]) Take 1 Tablet (500 mg) by [...] hemoglobin A1c goal of 7.0%-8.0% ([facility]) Inject 40-45 units with meals + [...] 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 Abnormality of gait 02/02/[address] 08/19/2014 History of pulmonary embolus (PE) 10/21/ 2014 Statin intolerance 07/16/2014 Essential hypertension with goal [...] mRNA, LNP-s, No Pre serve, 2-Dose Series (Watchwith) 01/08/2021,12/18/2020 COVID-19, LNP-s, No Preserve , Navarro-sucrose, Ages 12+ (Pfizer) 2022,10/01/2021 Pneumococcal Conjugate Vacci ne, 20-valent ([id number]) 03/12/2022 Pneumococcal Polysaccharide PPV23 (Pneumovax) 08/22/2009,06/15/2006 Seasonal [...] encounter Miscellaneous Notes * Telephone Encounter - [facility] - 10/13/2022 1:25 AM EST Outreach Attempts IVR Call Oct 12 2022 9:05AM Answered - Success Results COVID: Negative Flu: Negative RSV: Negative IVR Message: Marilou Brown. Your tests from 10/11/2022 00:00:00 for COVID-19, Flu, and RSV all came back negative. This means you are NOT infected with any of these viruses. If your cold/flu symptoms last longer than 7 days or get worse, contact your primary care physician. If you don't have a primary care physician, go to the nearest [facility] or urgent care clinic. To establish care with a [facility] provider, please call [phone]. Practice social distancing and good hand hygiene to keep yourself and others safe. Your results are also available for your reference in your [employer] account under 'Test & Lab Results.' If you are not enrolled in [employer], you can create an account by going to [email or web address]. You will also receive a letter in the mail with your results. If you are a [facility] staff member or employee, when you receive your result, please call [employer] [facility] between 7 a.m. and 4 p.m. at [phone]. Notify them of your test results and for instructions on returning to work after your quarantine period. Press 1 if you would like to speak with a nurse, press 2 to hear this message again. documented in this encounter Plan of Treatment Upcoming Encounters Date Type Specialty Care Team Description 10/13/2022 Scheduled Telephone [facility] Equipment Mechanic Specialist, [place] Cisneros [address] [place] [address] 10/18/2022 Telemedicine [facility], [facility] [address] [facility] [address] [place] [address] 11/01/2022 Home Visit Family Medicine Mira Duong, Community Health Cnc Laser Operator [address] [place] [address] 11/01/2022 Office Visit Family Medicine Galdino Andujar, DO [address] [place] [address] 11/22/2022 Home Visit [facility] Brooke Jose RN [address] [place] [address] 01/19/2023 PulmDiagnostic Pulmonary Function West, Pft [address] [place] [address] 08/08/2023 Nurse Only Ancillary College, Nurse Annual Wellness Visit [address] [place] [address] Scheduled Procedures Name Priority Associated Diagnoses Date/Ti [...] Additional history exists CKD PHOS USE SMARTSET 93987 01/07/202312/25, 03/12/2021, 11/17/2020, Additional history exists DIABETES-FOOT EXAM 01/07/2023 01/07/2022, 0 01/14/2021, 11/07/2019, Additional history exists TSH FOR THYROID MEDICATION MONITORING YEARLY 01/07/2023 01/07/2022, 12/25/2020, 05/06/2020, Additional history exists GFR - Renal Function 03/14/2023 09/13/2022, 08/13/2022, 07/02/2022, Additional history exists DIABETES-EYE EXAM 05/24/2023 05/24/2022, , 04/07/2020, Additional history exists CKD HGB USE SMARTSET 70927 06/29/202306/29, 06/29/2022, 01/07/2022, Additional history exists Depression [...] Documents on File Type Date Recorded Patient Fish And Wildlife Warden Expl anation POLST 03/19/2020 4:25 PM POLST [...] the patient have Health Care Power of Draw Tender? No Healthcare Agents on File Name Relationship Healthcare Agent Relationship Communication Galdino Camp Other - (no specific identity) Health Care Power of Draw Tender Princess Allen Other - (no specific identity) Health Care Power of Draw Tender Care Teams Lorry Weigher Relationship Specialty Start Date End Date Galdino Andujar, DO [address] [place] [address] PCP - General Internal Medicine 01/07/22 documented as of this encounter
--- OUTSIDE RECORDS SUMMARY | 2023-06-01 04:21 | External Medical Summary | Summary of Care ---
Author Name Unknown Organization [place] [address] Care Team Providers Care Servicer Travel Trailers Name Role Phone Galdino Andujar DO Primary Care Provider [phone] Reason for Visit * Reason Onset Date Comments [facility]: Maintenance 10/25/2022 Encounter Details Date Type Department Care Team Description 10/25/2022 Telephone [facility], [facility] [address] [facility] [place] [address] [facility], Nurse [facility] [address] [facility] [place] [address] [facility]: Maintenance Allergies Active Allergy [...] as of this encounter (statuses as of 10/25/2022) Medications Medication Sig Dispensed Refills Start Date End Date Status ONETOUCH DELICA LANCETS 33G MISC Check blood sugars 3-4 times daily 180 Each 5 08/01/2018 Active oxygen GASIndications:ELISSA (obstructive sleep apnea) 2 lpm continuous 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:Ingot Car Operator zahra diastolic congestive heart failure (HCC) [...] with hemoglobin A1c goal of 7.0%-8.0% ([facility]) INJECT 60 UNITS UNDER THE [...] A1c goal of less than 8.0% ([facility]) Take 1 Tablet (500 mg) [...] with hemoglobin A1c goal of 7.0%-8.0% ([facility]) Inject 40-45 units with meals + sliding scale 1 units for every 25 units BG > 150. 121 mL 3 10/04/2022 Active documented as of this encounter (statuses as of 10/25/2022) Active Problems Problem Noted Date Type 2 [...] percocet BID prn. Abnormality of gait 02/02/[address] 08/19/2014 History of pulmonary [...] as of this encounter (statuses as of 10/25/2022) Resolved Problems Problem Noted Date Resolved Date [...] as of this encounter (statuses as of 10/25/2022) Immunizations Name Administration Dates Next Due COVID-19 mRNA, LNP-s, No Pre serve, 2-Dose Series ([email or web address]) 01/08/2021,12/18/2020 COVID-19, LNP-s, No Preserve , Navarro-sucrose, Ages 12+ (Pfizer) 2022,10/01/2021 Pneumococcal Conjugate Vacci ne, 20-valent ([id number]) 03/12/2022 Pneumococcal Polysaccharide PPV23 (Pneumovax) 08/22/2009,06/15/2006 Seasonal [...] encounter Miscellaneous Notes * Telephone Encounter - Rosalee Barker LPN - 10/25/2022 8:40 AM EST Received return call from pt - She reports diarrhea has resolved after Zofran and Meclizine. She still have some mild dizziness but otherwise is feeling well. Todays wt 313 lbs- baseline. I instructed to stay well hydrated up to 2l restriction. documented in this encounter Plan of Treatment Upcoming Encounters Date Type Specialty Care Team Description 11/01/2022 Home Visit Family Medicine Mira Duong, Community Health Tribunal Member [address] [place] [address] 11/01/2022 Office Visit Family Medicine Galdino Andujar, DO [address] [place] [address] 11/01/2022 Office Visit [facility], Pharmacist [address] [address] 11/22/2022 Home Visit [facility] Brooke Jose, RN [address] [place] [address] 12/28/2022 Office Visit Nephrology Erik Lenz MD [address] [facility] [place] [address] 01/19/2023 PulmDiagnostic Pulmonary Function [facility], Pft [address] [facility] [address] 08/08/2023 Nurse Only Ancillary College, Nurse Annual Wellness Visit [address] [place] [address] Scheduled Procedures Name Priority Associated Diagnoses Date/Ti [...] Additional history exists CKD PHOS USE SMARTSET 34095 01/07/202312/25, 03/12/2021, 11/17/2020, Additional history exists DIABETES-FOOT EXAM 01/07/2023 01/07/2022, 0 01/14/2021, 11/07/2019, Additional history exists TSH FOR THYROID MEDICATION MONITORING YEARLY 01/07/2023 01/07/2022, 12/25/2020, 05/06/2020, Additional history exists Mammogram 02/11/2023 02/11/2022, 02/2021, 07/10/2019, Additional history exists GFR - Renal Function 03/14/2023 09/13/2022, 08/13/2022, 07/02/2022, Additional history exists DIABETES-EYE EXAM 05/24/2023 05/24/2022, , 04/07/2020, Additional history exists CKD HGB USE SMARTSET 20821 06/29/202306/29, 06/29/2022, 01/07/2022, Additional history exists Depression [...] Documents on File Type Date Recorded Patient Honing Machine Set Up Operator Tool Andre echevarria POL 03/19/2020 4:25 PM POLST [...] the patient have Health Care Power of Mfts? No Healthcare Agents on File Name Relationship Healthcare Agent Relationship Communication Galdino Camp Other - (no specific identity) Health Care Power of Mfts Princesseugene Allen Other - (no specific identity) Health Care Power of Mfts Care Teams Servicer Travel Trailers Relationship Specialty Start Date End Date Galdino Andujar, DO [address] [place] [address] PCP - General Internal Medicine 01/07/22 documented as of this encounter
--- OUTSIDE RECORDS SUMMARY | 2023-06-01 04:21 | External Medical Summary | Summary of Care ---
Author Name Unknown Organization [place] [address] Care Team Providers Care Bicycle Repairman Name Role Phone Galdino Andujar DO Primary Care Provider [phone] Reason for Visit * Reason Onset Date Comments [facility]: Maintenance 10/26/2022 F /u n/d, vertigo Encounter Details Date Type Department Care Team Description 10/26/2022 Scheduled Telephone [facility], [facility] [address] [facility] [place] [address] Brooke Jose RN [address] [facility] [place] [address] Allergies Active Allergy Reactions Severity Noted Date [...] as of this encounter (statuses as of 10/26/2022) Medications Medication Sig Dispensed Refills Start Date End Date Status ONETOUCH DELICA LANCETS 33G MISC Check blood sugars 3-4 times daily 180 Each 5 08/01/2018 Active oxygen GASIndications:ELISSA (obstructive sleep apnea) 2 lpm continuous 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:Market Master zahra diastolic congestive heart failure (HCC) If [...] goal of less than 8.0% ([facility]) Take 1 Tablet (500 mg) by [...] as of this encounter (statuses as of 10/26/2022) Active Problems Problem Noted Date Type 2 [...] 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 Abnormality of gait 02/02/[address] 08/19/2014 History of pulmonary [...] as of this encounter (statuses as of 10/26/2022) Resolved Problems Problem Noted Date Resolved Date [...] as of this encounter (statuses as of 10/26/2022) Immunizations Name Administration Dates Next Due COVID-19 mRNA, LNP-s, No Pre serve, 2-Dose Series ([employer]) 01/08/2021,12/18/2020 COVID-19, LNP-s, No Preserve , Navarro-sucrose, Ages 12+ (Pfizer) 2022,10/01/2021 Pneumococcal Conjugate Vacci ne, 20-valent ([id number]) 03/12/2022 Pneumococcal Polysaccharide PPV23 (Pneumovax) 08/22/2009,06/15/2006 Seasonal [...] encounter Miscellaneous Notes * Telephone Encounter - Brooke Jose, RN - 10/26/2022 12:07 PM EST T/c to pt for f/u nausea, vertigo, loose stools ''I'm feeling better today.'' Denies fever chills Nausea and vertigo have resolved Took meclizine yesterday, vertigo relieved Last loose stool was 2 days ago Wt 313lbs today which is her dry wt Breathing at baseline Placed on for fu call tomorrow Agreed to call with return of above s/s documented in this encounter Plan of Treatment Upcoming Encounters Date Type Specialty Care Team Description 10/27/2022 Scheduled Telephone [facility] Senior Category Manager, [place] Cisneros [address] [facility] [place] [address] 11/01/2022 Home Visit Family Medicine Mira Duong, Community Health Post Hole Digger [address] [place] [address] 11/01/2022 Office Visit Family Medicine Galdino Andujar, DO 293 [place] [address] 11/01/2022 Office Visit [facility], Pharmacist [address] [place] [address] 11/22/2022 Home Visit [facility] Brooke Jose RN 132 [facility] [place] [address] 12/28/2022 Office Visit Nephrology Erik Lenz MD [address] [place] [address] 01/19/2023 PulmDiagnostic Pulmonary Function [place], Pft [address] [facility] [place] [address] 08/08/2023 Nurse Only Ancillary College, Nurse Annual Wellness Visit [address] [place] [address] Scheduled Procedures Name Priority Associated Diagnoses Date/Ti [...] Additional history exists CKD PHOS USE SMARTSET 24105 01/07/202312/25, 03/12/2021, 11/17/2020, Additional history exists DIABETES-FOOT EXAM 01/07/2023 01/07/2022, 0 01/14/2021, 11/07/2019, Additional history exists TSH FOR THYROID MEDICATION MONITORING YEARLY 01/07/2023 01/07/2022, 12/25/2020, 05/06/2020, Additional history exists Mammogram 02/11/2023 02/11/2022, 01/0 02/2021, 07/10/2019, Additional history exists GFR - Renal Function 03/14/2023 09/13/2022, 08/13/2022, 07/02/2022, Additional history exists DIABETES-EYE EXAM 05/24/2023 05/24/2022, , 04/07/2020, Additional history exists CKD HGB USE SMARTSET 88942 06/29/202306/29, 06/29/2022, 01/07/2022, Additional history exists Depression [...] Documents on File Type Date Recorded Patient Stitcher Feeder Expl anation POLST 03/19/2020 4:25 PM POLST [...] the patient have Health Care Power of Collections Specialist? No Healthcare Agents on File Name Relationship Healthcare Agent Relationship Communication Galdino Camp Other - (no specific identity) Health Care Power of Collections Specialist Princess Thrashery Other - (no specific identity) Health Care Power of Collections Specialist Care Teams Bicycle Repairman Relationship Specialty Start Date End Date Galdino Andujar, DO [address] [place] [address] PCP - General Internal Medicine 01/07/22 documented as of this encounter
--- OUTSIDE RECORDS SUMMARY | 2023-06-01 04:21 | External Medical Summary | Summary of Care ---
Author Name Unknown Organization [place] [address] Care Team Providers Care File Machine Operator Name Role Phone Galdino Andujar DO Primary Care Provider [phone] Encounter Details Date Type Department Care Team Description 10/11/2022 Home Visit [facility], [facility] 132 [facility] [place] [address] Brooke Jose RN 132 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 Abnormality of gait 02/02/[address] 08/19/2014 History of pulmonary [...] mRNA, LNP-s, No Pre serve, 2-Dose Series ([employer]) 01/08/2021,12/18/2020 COVID-19, LNP-s, No Preserve , Navarro-sucrose, Ages 12+ (Pfizer) 2022,10/01/2021 Pneumococcal Conjugate Vacci ne, 20-valent ([id number]) 03/12/2022 Pneumococcal Polysaccharide PPV23 (Pneumovax) 08/22/2009,06/15/2006 Seasonal [...] Sign Reading Time Taken Comments Blood Pressure 130/60 10/11/2022 11:12 AM EST Pulse 95 10/11/2022 11:12 AM EST Temperature 36.4 C (97.5 F) 10/11/2022 11:[address] Respiratory Rate 20 10/11/2022 11:12 AM EST Oxygen Saturation 97% 10/11/2022 11:12 AM EST Inhaled Oxygen Concentration - - Weight 138.8 kg (306 lb) 10/11/2022 11:12 AM EST Height - - Body Mass Index 50.92 09/29/2022 4:40 PM EST documented in this encounter Progress Notes * Brooke Jose RN - 10/11/2022 8:47 AM EST [facility] Verifier Monthly Visit Date: 10/11/2022 Time: 8:47 AM Name: Stephanie Camp : 1955 Situation: return Background: [facility] Enrollment Date: 06/14/22- Focused Care (3-9 months) PMHx: Frank filter, CHF, CHF, DVT, venous insufficiency, vasculitis, CAD, carotid stenosis, chronic hypoxemic respiratory failure, ELISSA, o2 dependent, GERD, DM, Hx PE, spinal stenosis Utilization: 07/16 - - [facility] Admission - falls, acute on chronic CHF, acute on chronic respiratory failure,cellulitis R hand d/t cat bite 07/29 - 03/17 - [facility] - acute on chronic resp fx with hypoxia, UTI, chronic diastolic HF, d/c home on doxycycline and cefdinir 09/06/22 - Acute [facility] HV -DTP initiated, keflex for cellulitis, urine culture was negative 09/19/22 - [facility] ER - abdominal pain, CT negative, no changes 10/11/22 - respiratory viral swab Assessment: Started with nasal congestion and mild nausea 2 days ago Faint crackles RLL Denies increased sob, cough, fever, chills or diarrhea Using Affrin nasal spray since yesterday - FIRMLY ADVISED NOT TO USE MORE THAN 3 DAYS D/T REBOUND CONGESTION No known covid exposure Has zofran in home but has not needed bs was 190 this morning - thinks elevated d/t generally not feeling well Dexcom now working - checking bsg 4-6x/day Has had several false high and low readings confirmed by finger sticks Denies any symptomatic lows or highs bsg 123 during visit CHF: 306lbs today Lungs CTA Abdomen soft No LE edema noted Wt Readings from Last 7 Encounters: 10/11/22 (!) 138.8 kg (306 lb) 09/29/22 (!) 140.5 kg (309 lb 12.8 oz) 09/23/22 (!) 140.6 kg (310 lb) 09/13/22 (!) 143 kg (315 lb 4.8 oz) 09/06/22 (!) 142.9 kg (315 lb) 08/30/22 (!) (P) 144.6 kg (318 lb 11.2 oz) 08/17/22 (!) 142.4 kg (314 lb) 306lbs is good dry wt for pt at this time Physical Exam: BP 130/60 | Pulse 95 | Temp 36.4 C (97.5 F) | Resp 20 | Wt (!) 138.8 kg (306 lb) | LMP 03/11/2003 | SpO2 97% | BMI 50.92 kg/m | BSA 2.52 m Pain 5 Physical Exam Constitutional: Appearance: She [...] less than 2 seconds. Coloration: Skin is pale. Neurological: General: No focal deficit present. Mental Status: She is alert and oriented to person, place, and time. Mental status is at baseline. Gait: Gait abnormal. Problems/Symptoms: Review of Systems Constitutional: Negative. HENT: Positive for congestion. Eyes: Negative. Respiratory: Positive for [...] toe). Allergic/Immunologic: Negative. Neurological: Positive for weakness. Hematological: Bruises/bleeds easily. Psychiatric/Behavioral: Negative. Medication Reconciliation: (See medication list) Does patient take medications as ordered: Yes Patient Well Being: No change in living situation [facility]-10 Completed this Visit: Yes. [facility]-10: Reason Completed: Status post acute event/change in baseline [facility]-10 Interventions: Fall education provided, reviewed/provided Fall brochure Advanced Care Planning: No documentation, see notes. Reinforcement/Education: Educated on home safety: Create a [...] you. Reinforced safety education and fall prevention. Treatment/Plan: USES PILL PACKS FROM [facility] DRY WT as of 10/11/22 is 306lbs Weigh daily and record - HAS [facility] SCALES Frequent UTI's - typically asymptomatic until has fever, has standing order for urine culture Ambulate with roller walker at ALL times o2 2lnc at rest, 4Lnc with activity - [facility] [phone] WEAR O2 AT ALL TIMES OR BECOMES [...] pain Home Interventions Provided: Labs/Specimen Collection Performed Viral swab Lab/Imaging Ordered viral swab Reinforced current Plan of Care, including self-management and medication regimen Patient Needs to Remember: Call [facility] with red flags Referrals Needed: none Follow Up: Is there cellular connectivity/connectivity [...] visits & schedule home visit with care trampoline team coach(s)as indicated. Provider is in agreement with Plan of Care: Yes Scheduled to follow up with patient daily x2 with calls for f/u nasal swab, cold s/s. Brooke Jose RN 10/11/2022 8:47 AM documented in this encounter Plan of Treatment Upcoming Encounters Date Type Specialty Care Team Description 10/12/2022 Scheduled Telephone [facility] Coal Inspector, [facility] [address] 10/13/2022 Scheduled Telephone [facility] Coal Inspector, [facility] 132 [facility] [place] [address] 10/18/2022 Telemedicine [facility] Medicine [place], Pharmacist [address] [address] 11/01/2022 Home Visit Family Medicine Mira Duong, Community Health Shift Engineer [address] [place] [address] 11/01/2022 Office Visit Family Medicine Galdino Andujar, DO 293 [facility] [place] [address] 11/22/2022 [facility] Visit [facility] Brooke Jose, RN [facility] [address] 01/19/2023 PulmDiagnostic Pulmonary Function West, Pft 132 [facility] [place] [address] 08/08/2023 Nurse Only Ancillary College, Nurse Annual Wellness Visit [address] [facility] [place] [address] Scheduled Procedures Name Priority Associated Diagnoses Date/Ti [...] Additional history exists CKD PHOS USE SMARTSET 02027 01/07/202312/25, 03/12/2021, 11/17/2020, Additional history exists DIABETES-FOOT EXAM 01/07/2023 01/07/2022, 0 01/14/2021, 11/07/2019, Additional history exists TSH FOR THYROID MEDICATION MONITORING YEARLY 01/07/2023 01/07/2022, 12/25/2020, 05/06/2020, Additional history exists GFR - Renal Function 03/14/2023 09/13/2022, 08/13/2022, 07/02/2022, Additional history exists DIABETES-EYE EXAM 05/24/2023 05/24/2022, , 04/07/2020, Additional history exists CKD HGB USE SMARTSET 54700 06/29/202306/29, 06/29/2022, 01/07/2022, Additional history exists Depression [...] Documents on File Type Date Recorded 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 No Healthcare Agents on File Name Relationship Healthcare Agent Relationship Communication Galdino Camp Other - (no specific identity) Health Care Power of Metaphysics Teacher Princess Allen Other - (no specific identity) Health Care Power of Metaphysics Teacher Care Teams File Machine Operator Relationship Specialty Start Date End Date Galdino Andujar, DO [address] [place] [address] PCP - General Internal Medicine 01/07/22 documented as of this encounter
--- OUTSIDE RECORDS SUMMARY | 2023-06-01 04:22 | External Medical Summary | Summary of Care ---
Author Name Unknown Organization [place] [address] Care Team Providers Care Wet Wheeler Name Role Phone Galdino Andujar DO Primary Care Provider [phone] Reason for Visit * Reason Onset Date Comments Information 09/29/2022 Chf call Encounter Details Date Type Department Care Team Description 09/29/2022 Scheduled Telephone Family Practice 65 [facility] [address] [place] [phone] [place], Nurse [facility] Prac [address] [address] Arrived Allergies Active Allergy Reactions Severity Noted Date [...] as of this encounter (statuses as of 09/29/2022) Medications Medication Sig Dispensed Refills Start Date End Date Status DEMIAN BISWAS LANCETS 33G MISC Check blood sugars 3-4 times daily 180 Each 5 08/01/2018 Active oxygen GASIndications:ELISSA (obstructive sleep apnea) 2 lpm continuous 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: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 1 Each 0 04/08/2020 Active Blood Glucose Monitoring Suppl (TDXTOUCH ULTRA 2) w/Device KIT Use to test BG values 1 Kit 0 05/20/2020 Active Acetaminophen 500 MG Oral Tablet Take 1 Tablet by mouth every 6 hours as needed. 0 Active CPAP every night at bedtime. 0 Active BD Pen Needle Short U/F 31G X 8 MM (Insulin Pen Needle) use five times daily 500 Each 3 11/04/2021 Active SplurgyTouch Ultra Blue In Vitro Strip (Glucose Blood) Check sugars 3-4 times daily, E11.9 400 Strip 3 11/04/2021 Active Trulicity 4.5 MG/0.5ML Subcutaneous Solution Pen-injector (Dulaglutide) Inject 1 pen under the skin weekly 6 mL 5 11/03/2021 Active NovoLOG FlexPen 100 UNIT/ML Subcutaneous Solution Pen-injector (insulin aspart)Indications:T ype 2 diabetes mellitus with hemoglobin A1c goal of 7.0%-8.0% ([facility]) Inject 40 units with meals + sliding scale 1 units for every 25 units BG > 150. 121 mL 3 11/04/2021 Active Tresiba FlexTouch 100 UNIT/ML Subcutaneous Solution Pen-injector (Insulin Degludec)Indications :Type 2 diabetes mellitus with hemoglobin A1c goal of 7.0%-8.0% ([facility]) INJECT 60 UNITS UNDER THE SKIN EVERY [...] at bedtime. 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 60 Capsule 5 08/25/2022 Active metFORMIN HCl ER 500 MG Oral Tablet Extended Release 24 Hour (Glucophage XR)Indications:Type 2 diabetes mellitus with hemoglobin A1c goal of less than 8.0% ([facility]) Take 1 Tablet (500 mg) by mouth [...] NYHA class 1 and CKD stage 3 ([facility]),Chronic diastolic congestive heart failure (HCC) Take 1 [...] before bedtime. 60 Tablet 5 08/25/2022 Active traZODone HCl 50 MG Oral Tablet (Desyrel) [...] before bedtime. 60 Tablet 0 09/13/2022 Active documented as of this encounter (statuses as of 09/29/2022) Active Problems Problem Noted Date ILD (interstitial lung disease) 08/11/20 22 Last [...] percocet BID prn. Abnormality of gait 02/02/[address] [place] [address] 08/19/2014 History of pulmonary [...] as of this encounter (statuses as of 09/29/2022) Resolved Problems Problem Noted Date Resolved Date [...] as of this encounter (statuses as of 09/29/2022) Immunizations Name Administration Dates Next Due COVID-19 mRNA, LNP-s, No Pre serve, 2-Dose Series (Geni) 01/08/2021,12/18/2020 COVID-19, LNP-s, No Preserve , Navarro-sucrose, Ages 12+ (Pfizer) 2022,10/01/2021 Pneumococcal Conjugate Vacci ne, 20-valent ([id number]) 03/12/2022 Pneumococcal Polysaccharide PPV23 (Pneumovax) 08/22/2009,06/15/2006 Seasonal [...] Telephone Encounter - Shira Gross LPN - 09/29/2022 4:35 PM EST We are calling you today to ensure you had a healthy holiday season. Do you check your weight at home? Yes If yes, what is your weight today? 309.8 lb Symptom review: Increased or worsening SOB from baseline: no Increased or worsening cough from baseline: no Orthopnea: if bends over and stands too fast Chest pain: no Increased or worsening edema in BLE/abdominal fullness: no (If yes, where) Current diuretic use: takes as directed. (if PRN, ask how often or what their criteria is) Patient questions Patient advised to call if > 3 lb weight gain in 24 hours or any SOB. Script: Please know we are here to support you and any questions you have. I documented in this encounter Plan of Treatment Upcoming Encounters Date Type Specialty Care Team Description 09/30/2022 Imaging Radiology 10/04/2022 Office Visit Family Medicine [place], Pharmacist 65 [facility] 293 [facility] [place] [address] 10/11/2022 [facility] Visit [facility] Brooke Jose, RN 132 [facility] [place] [address] 01/19/2023 PulmDiagnostic Pulmonary Function [place], Pft 132 [facility] [place] [address] 08/08/2023 Nurse Only [employer], Nurse Annual Wellness Visit 65 [facility] [address] [facility] [place] [address] Scheduled Procedures Name Priority Associated Diagnoses Date/Ti me COLONOSCOPY FLEXIBLE PROXIMAL DIAGNOSTIC Recall Colon cancer screening Health Maintenance Due Date Last Done Comments Cologuard: Ages 45-75 2000 FOBT: Ages 45-75 2000 Sigmoidoscopy: Ages 45-75 2000 COVID-19 Vaccine (5 - Booster for Pfizer series) 06/08/2022 2022, 10/01/2021, 01/08/2021, Additional history exists DIABETES-HGBA1C EVERY 6 MONTHS 11/12/2022 05/12/2022, 01/07/2022, 11/17/2020, Additional history exists Alb / Creat Ratio 01/07/2023 01/07/2022, , 05/01/2018, Additional history exists CKD PHOS USE SMARTSET 74592 01/07/202312/25, 03/12/2021, 11/17/2020, Additional history exists DIABETES-FOOT EXAM 01/07/2023 01/07/2022, 0 01/14/2021, 11/07/2019, Additional history exists TSH FOR THYROID MEDICATION MONITORING YEARLY 01/07/2023 01/07/2022, 12/25/2020, 05/06/2020, Additional history exists GFR - Renal Function 03/14/2023 09/13/2022, 08/13/2022, 07/02/2022, Additional history exists DIABETES-EYE EXAM 05/24/2023 05/24/2022, , 04/07/2020, Additional history exists CKD HGB USE SMARTSET 53610 06/29/202306/29, 06/29/2022, 01/07/2022, Additional history exists Depression Screening, Annual for Pts 12 and Over 09/13/2023 09/13/2022, 06/12/2018 Mammogram 02/12/2024 02/11/2022, 02/2021, 07/10/2019, Additional [...] Documents on File Type Date Recorded Patient 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 No Healthcare Agents on File Name Relationship Healthcare Agent Relationship Communication Galdino Camp Other - (no specific identity) Health Care Power of Osd Clerk Princess Other - (no specific identity) Health Care Power of Osd Clerk Care Teams Wet Wheeler Relationship Specialty Start Date End Date Galdino Andujar, DO [address] [place] [address] PCP - General Internal Medicine 01/07/22 documented as of this encounter
--- OUTSIDE RECORDS SUMMARY | 2023-06-01 04:22 | External Medical Summary | Summary of Care ---
Author Name Unknown Organization [place] [address] Care Team Providers Care Blanket Cutter Hand Name Role Phone Galdino Andujar DO Primary Care Provider [phone] Reason for Visit * Reason Comments Dosage Adjustment In Person (Anticoag Cl inic) Diabetes Follow-Up Encounter Details Date Type Department Care Team Description 10/04/2022 Office Visit Family Practice [address] [place] [address] [place] [address] [place], Pharmacist [address] [address] Type 2 diabetes mellitus with stage 3b chronic kidney disease, with long-term current use of insulin ([facility])*; Type 2 diabetes mellitus with hemoglobin A1c goal of 7.0%-8.0% ([facility]) Allergies Active Allergy Reactions Severity [...] as of this encounter (statuses as of 10/04/2022) Medications Medication Sig Dispensed Refills Start Date [...] SKIN IN THE EVENING, Reported on 08/03/2022 oxyCODONE-Acetamino phen 5-325 MG Oral Tablet (Percocet)Indicatio ns:Lumbar radiculopathy,Spina l stenosis of lumbar region without neurogenic claudication Take by mouth 1 Tablet every 12 hours as needed for Pain, Severe. 60 Tablet 0 2 Active Apixaban 5 MG Oral Tablet (Eliquis) [...] capsule daily. 30 Capsule 5 2 Active Gabapentin 100 MG Oral Capsule (Neurontin)Indicati ons:Fibromyalgia,Re stless legs syndrome Take 2 Capsules (200 mg) by mouth at bedtime. 60 Capsule 5 2 Active Additional Information Patient taking differently: 100 mgOral HS, Reported on 09/29/2022 Magnesium Oxide 400 MG Oral CapsuleIndications: Benign [...] hemoglobin A1c goal of less than 8.0% ([facility]) Take 1 Tablet (500 mg) by mouth in the morning. 30 Tablet 5 2 Active Omeprazole 20 MG Oral Capsule Delayed ReleaseIndications: Gastroesophageal reflux disease with esophagitis without hemorrhage Take 1 Capsule (20 mg) by mouth in the morning. 30 Capsule 3 2 Active Potassium Chloride ER 20 MEQ [...] OTHER MEDICATIONS 100 Tablet 1 2 Active Baclofen 5 MG Oral Tablet (Lioresal)Indicatio ns:Fibromyalgia Take 1 Tablet (5 mg) by mouth 2 times a day as needed for Muscle spasms. 60 Tablet 1 2 Active Levothyroxine Sodium 200 [...] when instructed. 120 Tablet 1 2 Active clonazePAM 0.5 MG Oral Tablet (KlonoPIN)Indicatio ns:Restless legs syndrome,Anxiety state Take 1 Tablet by mouth in the morning and 1 Tablet before bedtime. 60 Tablet 0 2 Active traZODone HCl 100 MG Oral Tablet (Desyrel)Indication s:Primary insomnia Take 1 Tablet by mouth at bedtime. 30 Tablet 5 3 Active NovoLOG FlexPen 100 UNIT/ML Subcutaneous Solution Pen-injector (insulin aspart)Indications: Type 2 diabetes mellitus with hemoglobin A1c goal of 7.0%-8.0% ([facility]) Inject 40-45 units with meals + sliding scale 1 units for every 25 units BG > 150. 121 mL 3 3 Active NovoLOG FlexPen 100 UNIT/ML Subcutaneous Solution Pen-injector (insulin aspart)Indications: Type 2 diabetes mellitus with hemoglobin A1c goal of 7.0%-8.0% (HCC) Inject 40 units with meals + sliding scale 1 units for every 25 units BG > 150. 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 Atherosclerosis of [place] coronary arter 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 [...] as of this encounter (statuses as of 10/04/2022) Resolved Problems Problem Noted Date Resolved Date [...] as of this encounter (statuses as of 10/04/2022) Immunizations Name Administration Dates Next Due COVID-19 mRNA, LNP-s, No Pre serve, 2-Dose Series (Pfizer) 01/08/2021,12/18/2020 COVID-19, LNP-s, No Preserve , Navarro-sucrose, Ages 12+ (Pfizer) 2022,10/01/2021 Pneumococcal Conjugate Vacci ne, 20-valent ([id number]) 03/12/2022 Pneumococcal Polysaccharide PPV23 (Pneumovax) 08/22/2009,06/15/2006 Seasonal [...] this encounter Progress Notes * Aliya Cleaning, [facility] - 10/04/2022 2:00 PM EST Medication Therapy Disease Management [facility] - Diabetes Management Progress Note Stephanie Camp, identified by name and date of , is a 67 year old female being seen for diabetes management/education. Patient presents for return diabetic visit. DIABETES: Current diabetic medications: Novolog - 40 units withbreakfast/lunch and 45 units with supper+SS 1:25 >150 Tresiba 60 units atbedtime Trulicity 4.5 mg weekly-Tuesdaymo Metformin ER 500 mg 1 tablet daily [id number]/min09/13/22 Medication Injection Site: Abdomen Lifestyle: Diet: Started taking metamucil in the morning which has 11g carb and 6g fiber Glucose Review/SMBG: Readings obtained from patient documented BG logbook 177 201 157 230 265 140 166 176 231 210 217 151 245 216 227 167 Hypoglycemia: Does your blood sugar go below [...] indicated BP Readings from Last 3 Encounters: 09/29/22 136/74 09/23/22 108/62 09/13/22 132/70 Blood pressure at goal: yes HYPERLIPIDEMIA: Patient is taking moderate or high intensity statin: No Current regimen: none, statin intolerant Goal statin intensity: high The ASCVD Risk score (Marylu FRANK, et al., 2019) failed to calculate for the following reasons: The patient has a prior MO or stroke diagnosis Recent Labs Units 07/02/22 1511 LDL CHOLESTEROL (CALCULATED) - [facility] mg/dL 120 HEALTH MAINTENANCE REVIEW: Health Maintenance Due Topic Date Due COVID-19 Vaccine (5 - Booster for Pfizer series) 06/08/2022 ASSESSMENT & PLAN: ICD-10-CM 1. Type 2 diabetes mellitus with stage 3b chronic kidney disease, with long-term current use of insulin ([facility]) E11.22 N18.32 Z79.4 History of Treatment Barriers: Therapy considerations:Renal Function and Cost Medication:jardiance:ADEyeast infections/UTIs Medication: statins - intolerant BG Readings - Blood sugars uncontrolled. BG are rising throughout the day. Patient denies any signsor symptoms of hypoglycemia. Patient brought in Dexcom to appointment to start using. Dexcom G6: Patient Education and Review Patient provided G6 CGM components and training manual. Reviewed the following information with patient using provided funeral pre arrangement counselor literature: Introduced CGM and components How to set up display device (cell phone with Dexcom G6 erin) Follow the onscreen instructions on digital media designer or appt to enter: o Low and high alerts o Sensor code o Transmitter SN Insert sensor and attach transmitter o Choose sensor site o Insert sensor with applicator o Snap in transmitter Pair transmitter and start sensor o Wait for transmitter to pair o Tap start sensor - No readings during the 2-hour warmup - Keep display device within 20 feet during warmup Home screen overview o Review home screen overview in using your G6 with patient o Home screen shows - Sensor glucose readings - Trend arrow - Trend graph - High and low alerts Treatment decisions o Review treatment decisions in using your G6 with patient o Use your meter if: - Your G6 readings don't match your symptoms - Your G6 doesn't show both a number and an arrow Ending Sensor Session o Review ending your sensor session in using your G6 with patient - Remover sensor and transmitter together from body - Remove transmitter from martin - Keep transmitter Patient set up personal device and self-inserted sensor and transmitter in office independently of pharmacist involvement other than for material review and support. Medications - Reviewed current regimen, patient is adherent to regimen. Discussed increasing novolog to help with rises throughout the day. Will follow up in 2 weeks via phone call to review Dexcom download and make further adjustments. Diet, Exercise, Lifestyle - No significant lifestyle changes since last visit. Patient is agreeable to SMBG with Dexcom daily. Patient aware to contact clinic if any hypoglycemia before next visit. MEDICATION CHANGES: yes, see below; preferred pharmacy: [facility] Diabetic Medications: INCREASE: Novolog - 40 units withbreakfast, 44 units lunch and 45 units with supper+SS 1:25 >150 Tresiba 60 units atbedtime Trulicity 4.5 mg weekly-Tuesdaymorning Metformin ER 500 mg 1 tablet daily [id number]/min09/13/22 HEALTH MAINTENANCE INTERVENTIONS: Labs: Up to Date Immunizations: Due for covid booster Foot Exam: Up to Date Eye Exam: Up to Date Annual Wellness Visit: Up to Date FOLLOW UP: Return to clinic in 2 weeks 10/18/2022 Aliya Cleaning [facility] Clinical Pharmacist - Banking Management Consulting Manager Medication Therapy Management Clinic 10/03/2022, 8:59 PM documented in this encounter Plan of Treatment Upcoming Encounters Date Type Specialty Care Team Description 10/11/2022 Home Visit [facility] Brooke Jose, RN 132 [facility] [place] [address] 10/18/2022 Telemedicine [facility], Pharmacist [address] [address] 11/01/2022 Office Visit [facility] Medicine Galdino Andujar[facility] [address] 01/19/2023 PulmDiagnostic Pulmonary Function [place], Pft 132 [facility] [place] [address] 08/08/2023 Nurse Only [employer], Nurse Annual Wellness Visit 65 [facility] [address] [facility] [address] Scheduled Procedures Name Priority Associated Diagnoses Date/Ti [...] Additional history exists CKD PHOS USE SMARTSET 39043 01/07/202312/25, 03/12/2021, 11/17/2020, Additional history exists DIABETES-FOOT EXAM 01/07/2023 01/07/2022, 0 01/14/2021, 11/07/2019, Additional history exists TSH FOR THYROID MEDICATION MONITORING YEARLY 01/07/2023 01/07/2022, 12/25/2020, 05/06/2020, Additional history exists GFR - Renal Function 03/14/2023 09/13/2022, 08/13/2022, 07/02/2022, Additional history exists DIABETES-EYE EXAM 05/24/2023 05/24/2022, , 04/07/2020, Additional history exists CKD HGB USE SMARTSET 45271 06/29/202306/29, 06/29/2022, 01/07/2022, Additional history exists Depression [...] long-term current use of insulin (HCC)- Primary Type 2 diabetes mellitus with hemoglobin A1c goal of 7.0%-8.0% (HCC) documented in this encounter Advance Directives Documents on File Type Date Recorded Patient Scaleman Expl anation POLST 03/19/2020 4:25 PM POLST [...] the patient have Health Care Power of Linen Room Custodian? No Healthcare Agents on File Name Relationship Healthcare Agent Relationship Communication Galdino Camp Other - (no specific identity) Health Care Power of Linen Room Custodian Princess Other - (no specific identity) Health Care Power of Linen Room Custodian Care Teams Blanket Cutter Hand Relationship Specialty Start Date End Date Galdino Andujar, DO [address] [place] [address] PCP - General Internal Medicine 01/07/22 documented as of this encounter
--- OUTSIDE RECORDS SUMMARY | 2023-06-01 04:22 | External Medical Summary | Summary of Care ---
Author Name Unknown Organization [place] [address] Care Team Providers Care Supervisor Weaving Name Role Phone Galdino Andujar DO Primary Care Provider [phone] Reason for Visit * Reason Comments Follow Up Encounter Details Date Type Department Care Team Description 09/29/2022 Office Visit Family Practice [address] [place] [address] [place] [address] Galdino Andujar DO [address] [place] [address] 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 3b chronic kidney disease ([facility])*; Moderate episode of recurrent major depressive disorder ([facility]); Type 2 diabetes mellitus with stage 3b chronic kidney disease, with long-term current use of insulin ([facility]); Recurrent deep vein thrombosis (DVT) of both lower extremities ([facility]); Chronic hypoxemic respiratory failure ([facility]); Morbid obesity with BMI of 50.0-59.9, adult ([facility]); ILD (interstitial lung disease) ([facility]); Hyperparathyroidism, secondary renal ([facility]); Heparin 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); Anxiety state; Essential hypertension with goal blood pressure less than 140/90; Atherosclerosis of [place] coronary artery of [place] heart without angina pectoris; Postsurgical hypothyroidism; Dyslipidemia; Sacroiliitis, not elsewhere classified ([facility]); Primary insomnia Allergies Active Allergy Reactions Severity Noted Date [...] as of this encounter (statuses as of 09/30/2022) Medications Medication Sig Dispensed Refills Start Date [...] 0 04/08/2020 Active Blood Glucose Monitoring Suppl (QuoVadisTOUCH ULTRA 2) w/Device KIT Use to test [...] 08/25/2022 Active Gabapentin 100 MG Oral Capsule (Neurontin)Indicati [...] at bedtime. 30 Tablet 5 09/29/2022 Active traZODone HCl 50 MG Oral Tablet (Desyrel) Take 1 Tablet (50 mg) by mouth at bedtime. 30 Tablet 5 08/25/2022 3 Discontinu ed(Medicat ion/Dose Changed) documented as of this encounter (statuses as of 09/30/2022) Active Problems Problem Noted Date Type 2 [...] 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/31/2021 Atherosclerosis of [place] coronary arter 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 [...] as of this encounter (statuses as of 09/30/2022) Resolved Problems Problem Noted Date Resolved Date [...] as of this encounter (statuses as of 09/30/2022) Immunizations Name Administration Dates Next Due COVID-19 mRNA, LNP-s, No Pre serve, 2-Dose Series ([email or web address]) 01/08/2021,12/18/2020 COVID-19, LNP-s, No Preserve , Navarro-sucrose, Ages 12+ (Pfizer) 2022,10/01/2021 Pneumococcal Conjugate Vacci ne, 20-valent ([id number]) 03/12/2022 Pneumococcal Polysaccharide PPV23 (Pneumovax) 08/22/2009,06/15/2006 Seasonal [...] Sign Reading Time Taken Comments Blood Pressure 136/74 09/29/2022 4:40 PM EST Pulse 98 09/29/2022 4:40 PM EST Temperature 36.3 C (97.3 F) 09/29/2022 4:40 PM ES T Respiratory Rate 14 09/29/2022 4:40 PM EST Oxygen Saturation 97% 09/29/2022 4:40 PM EST Inhaled Oxygen Concentration - - Weight 140.5 kg (309 lb 12.8 oz) 09/29/2022 4:40 PM EST Height 165.1 cm (5' 5") 09/29/2022 4:40 PM EST Body Mass Index 51.55 09/29/2022 4:40 PM EST documented in this encounter Progress Notes * Galdino Andujar, DO - 09/30/2022 8:22 AM EST SUBJECTIVE: Stephanie Camp is a [...] present. Chronic shortness of breath is unchanged. Leg swelling has improved. Chronic back pain is unchanged. Nortriptyline stopped at last visit. Patient Active Problem List Diagnosis Code Dyslipidemia E78.5 Postsurgical hypothyroidism E89.0 ELISSA (obstructive sleep apnea) G47.33 Venous insufficiency I87.2 Essential hypertension with goal blood pressure less than 140/90 I10 History of pulmonary embolus (PE) Z86.711 Statin intolerance Z78.[address] Z95.828 Fibromyalgia M79.7 Abnormality of gait R26.9 Restless legs syndrome G25.81 Gastroesophageal reflux disease with esophagitis K21.00 Morbid obesity with BMI of 50.0-59.9, adult ([facility]) E66.01, Z68.43 Controlled substance agreement signed Z79.899 Chronic diastolic congestive heart failure ([facility]) I50.32 Lumbar radiculopathy M54.16 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 [id number] chronic kidney disease ([facility]) I13.0, I50.32, N18.32 Hyperparathyroidism, secondary renal ([facility]) N25.81 Vasculitis ([facility]) I77.6 Primary osteoarthritis of left knee M17.12 Spinal stenosis of lumbar region without neurogenic claudication M48.061 Heparin 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) D75.829 Atherosclerosis of [place] coronary arter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 I25.10 Carotid artery stenosis, asymptomatic, right I65.21 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 Encounter for long-term (current) use of other medications Z79.899 Type 2 diabetes mellitus with stage 3b chronic kidney disease ([facility]) E11.22, N18.32 Type 2 diabetes mellitus with hemoglobin A1c goal of less than 8.0% ([facility]) E11.9 Recurrent deep vein thrombosis (DVT) of both lower extremities ([facility]) I82.403 Chronic hypoxemic respiratory failure ([facility]) J96.11 Chronic kidney disease, stage 3b ([facility]) N18.32 ILD (interstitial lung disease) ([facility]) J84.9 Moderate episode of recurrent major depressive disorder ([facility]) F33.1 Primary osteoarthritis of both knees M17.0 Type 2 diabetes mellitus with stage 3b chronic kidney disease, with long- term current use of insulin ([facility]) E11.22, N18.32, Z79.4 Anxiety state F41.1 Sacroiliitis, not elsewhere classified ([facility]) M46.1 Current Outpatient Medications Medication Sig Dispense Refill oxygen GAS 2 lpm continuous Acetaminophen 500 MG Oral Tablet Take 1 Tablet by mouth every 6 hours as needed. CPAP every night at bedtime. Trulicity 4.5 MG/0.5ML Subcutaneous Solution Pen-injector (Dulaglutide) Inject 1 pen under the skin weekly 6 mL 5 NovoLOG FlexPen 100 UNIT/ML Subcutaneous Solution Pen-injector (insulin aspart) Inject 40 unitswith meals + sliding scale 1 units for every 25 units BG > 150. 121 mL 3 Tresiba FlexTouch 100 UNIT/ML Subcutaneous Solution Pen-injector (Insulin Degludec) INJECT 60 UNITS UNDER THE SKIN EVERY MORNING (Patient taking differently: INJECT 60 UNITS UNDER THE SKIN IN THEEVENING) 60 [...] Take 1 capsule daily. 30 Capsule 5 Gabapentin 100 MG Oral Capsule (Neurontin) Take 2 Capsules (200 mg) by mouth at bedtime. (Patient taking differently: Take 1 Capsule by mouth at bedtime.) 60 Capsule 5 Magnesium Oxide 400 MG Oral [...] by mouth at bedtime. 30 Tablet 5 ONETOUCH DELICA LANCETS 33G [facility] Check blood sugars 3-4 times daily 180 [...] 02/22/2014 ELLIE (generalized anxiety disorder) 09/13/2009 Goiter [place] filter in place 08/19/2014 Heparin-induced thrombocytopenia 08/22/2009 History of pulmonary embolus (PE) 07/16/2014 HTN, goal below 140/90 Impetigo 09/27/2018 Obesity, BMI not known Perforation of intestine ([facility]) 1996 COLON -- 1996 Pneumonia in aspergillosis(484.6) 09/14/2009 Recurrent deep vein thrombosis (DVT) of both lower extremities ([facility]) 01/07/2022 Sleep apnea, obstructive Spinal stenosis of lumbar region without neurogenic claudication 07/15/2020 Spontaneous pneumothorax 09/14/2009 Statin intolerance 07/16/2014 Type 2 diabetes mellitus with hemoglobin A1c goal of less than 8.0% ([facility]) 01/07/2022 Past Surgical History: Procedure Laterality Date ARTHROPLASTY KNEE TOTAL Right 07/24/14 R COLONOSCOPY, DIAGNOSTIC (RECTUM) 02/18/2016 normal, repeat 10 yrs/[facility] COLONOSCOPY, GI REFERRAL OP 01/28/06 diverticulosis--repeat 10 years INCISION OF [place], PLANNED 06/03/2011 TRACHEOSTOMY PLANNED performed by DANNY HOLDER at [place] [facility] [place] INJECT DX/THER SUBSTANCE INTERLAMINAR LUMBAR/SACRAL W IMAGE GUIDE 05/26/2020 INJECTION SPINE LUMBAR OR SACRAL performed by Raj Ahn DO at OR [facility] INJECT DX/THER SUBSTANCE INTERLAMINAR LUMBAR/SACRAL W IMAGE GUIDE 05/14/2021 INJECTION SPINE LUMBAR OR SACRAL performed by Raj Ahn DO at OR [facility] INJECT DX/THER SUBSTANCE INTERLAMINAR LUMBAR/SACRAL W IMAGE GUIDE 08/13/2021 INJECTION SPINE LUMBAR OR SACRAL performed by Raj Ahn DO at OR [facility]EE ARTHROSCOPY/DEBRIDEMENT 07/[address] PERMANENT GASTROSTOMY TUBE 09/06/09 GASTROSTOMY WITH CONSTUCTION GASTRIC TUBE performed by AMADOU NUNEZ at [place] [facility] [place] REMOVAL OF THYROID GLAND 06/15/2011 THYROIDECTOMY INCLUDING SUBSTERNAL THYROID CERVICAL APPROACH performed by DANNY HOLDER at OR [facility] [place] REMOVE GALLBLADDER 09/06/09 CHOLECYSTECTOMY performed by AMADOU NUNEZ at OR [facility] [place] REPAIR RECURRENT INCISIONAL HERNIA 1998 REVISION OF COLOSTOMY, SIMPLE 1998 SACROILIAC JOINT INJECT W/GUIDANCE 07/28/2020 INJECTION SACROILIAC JOINT performed by Raj Ahn DO at OR [facility] SACROILIAC JOINT INJECT W/GUIDANCE 03/03/2022 INJECTION SACROILIAC JOINT performed by Raj Ahn DO at OR [facility] SUTURE, LARGE INTESTINE W/COLOSTOMY 1996 perforation R colon with colostomy VENA CAVA FILTER/LIGATION/CLIP 08/19/09 How[place] filter placement through the right femoral 08/19/[address] Lerma at [facility] Review of patient's allergies indicates: [...] for appetite change and unexpected weight change. HENT: Negative for [...] dizziness, syncope and headaches. Psychiatric/Behavioral: Positive for sleep disturbance. Negative for confusion and decreased concentration. OBJECTIVE: BP 136/74 | Pulse 98 | Temp 36.3 C (97.3 F) (Tympanic) | Resp 14 | Ht 1.651 m (5' 5") | Wt (!) 140.5 kg (309 lb 12.8 oz) | LMP 03/11/2003 | SpO2 97% | BMI 51.55 kg/m | BSA 2.54 m Physical Exam Vitals and nursing note [...] Tenderness: There is no abdominal tenderness. Musculoskeletal: Comments: Bilateral leg edema has improved but is still present Neurological: Mental Status: She is alert. Mental status is at baseline. Motor: No weakness. Gait: Gait abnormal. Psychiatric: Mood and Affect: Mood normal. Behavior: Behavior normal. PLAN AND ASSESSMENT: 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 3b chronic kidney disease (HCC) (Primary) Continue Furosemide Moderate episode of recurrent major depressive disorder (HCC) Continue Duloxetine Type 2 diabetes mellitus with stage 3b chronic kidney disease, with long-term current use of insulin (HCC) Continue Metformin,ER,Trulicity, Novolog, and Rresiba Recurrent deep vein thrombosis (DVT) of both lower extremities ([facility]) Continue Apixaban S/P IVC filter Chronic hypoxemic respiratory failure ([facility]) Continue Oxygen Morbid obesity with BMI of 50.0-59.9, adult ([facility]) Weight is down ILD (interstitial lung disease) ([facility]) Hyperparathyroidism, secondary renal ([facility]) Heparin 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) Anxiety state Continue Clonazepam Essential hypertension with goal blood pressure less than 140/90 Atherosclerosis of [place] coronary artery of [place] heart without angina pectoris Postsurgical hypothyroidism Dyslipidemia Sacroiliitis, not elsewhere classified ([facility]) Continue Oxycodone Primary insomnia - traZODone HCl 100 MG Oral Tablet (Desyrel); Take 1 Tablet by mouth at bedtime. Follow Up: Return in about 1 month (around 10/30/2022), or if symptoms worsen or fail to improve. Galdino Andujar DO 8:22 AM 09/30/2022 documented in this encounter Nursing Notes * Shira Gross LPN - 09/29/2022 4:40 PM EST Patient presents for follow up, voices no complaints. Please look at left foot, 4th digit. documented in this encounter Plan of Treatment Upcoming Encounters Date Type Specialty Care Team Description 09/30/2022 Imaging Radiology 10/04/2022 Office Visit [facility], Pharmacist [address] [place] [address] 10/11/2022 Home Visit [facility] Brooke Jose, RN [address] [place] [address] 11/01/2022 Office Visit Family Medicine Galdino Andujar, DO [address] [facility], [place] [address] 01/19/2023 PulmDiagnostic Pulmonary Function [place], [address] [facility] [place] [address] 08/08/2023 Nurse Only [employer], Nurse Annual Wellness Visit [address] [place] [address] Scheduled Procedures Name Priority Associated Diagnoses Date/Ti [...] Additional history exists CKD PHOS USE SMARTSET 23458 01/07/2023 04/12/2021, 03/12/2021, 11/17/2020, Additional history exists DIABETES-FOOT EXAM 01/07/2023 01/07/2022, 0 01/14/2021, 11/07/2019, Additional history exists TSH FOR THYROID MEDICATION MONITORING YEARLY 01/07/2023 01/07/2022, 12/25/2020, 05/06/2020, Additional history exists GFR - Renal Function 03/14/2023 09/13/2022, 08/13/2022, 07/02/2022, Additional history exists DIABETES-EYE EXAM 05/24/2023 05/24/2022, , 04/07/2020, Additional history exists CKD HGB USE SMARTSET 38361 06/29/202306/29, 06/29/2022, 01/07/2022, Additional history exists Depression [...] stage 3b chronic kidney disease (HCC)- Primary Moderate episode of recurrent major depressive disorder (HCC) Type 2 diabetes mellitus with stage 3b chronic kidney disease, with long-term current use of insulin (HCC) Recurrent deep vein thrombosis (DVT) of both lower extremities (HCC) Chronic hypoxemic respiratory failure (HCC) Chronic respiratory failure Morbid obesity with BMI of 50.0-59.9, adult (HCC) Morbid obesity ILD (interstitial lung disease) (HCC) Postinflammatory pulmonary fibrosis Hyperparathyroidism, secondary renal (HCC) Secondary hyperparathyroidism (of renal origin) Heparin 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) 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) Anxiety state Anxiety state, unspecified Essential hypertension with goal blood pressure less than 140/90 Atherosclerosis of [place] coronary artery of [place] heart without angina pectoris Postsurgical hypothyroidism Dyslipidemia Other and unspecified hyperlipidemia Sacroiliitis, not elsewhere classified (HCC) Sacroiliitis, not elsewhere classified Primary insomnia Persistent disorder of initiating or maintaining sleep documented in this encounter Advance Directives Documents on File Type Date Recorded Patient Patient Ombudsperson Expl anation POLST 03/19/2020 4:25 PM POLST [...] the patient have Health Care Power of Stereoplotter Operator? No Healthcare Agents on File Name Relationship Healthcare Agent Relationship Communication Galdino Camp Other - (no specific identity) Health Care Power of Stereoplotter Operator Princess Other - (no specific identity) Health Care Power of Stereoplotter Operator Care Teams Supervisor Weaving Relationship Specialty Start Date End Date Galdino Andujar, DO [address] [place] [address] PCP - General Internal Medicine 01/07/22 documented as of this encounter
--- OUTSIDE RECORDS SUMMARY | 2023-06-01 04:22 | External Medical Summary | Summary of Care ---
Author Name Unknown Organization [place] [address] Care Team Providers Care Dog Breeder Name Role Phone PratimaGaldino DO Primary Care Provider [phone] Reason for Visit * Reason Comments [facility]: Acute ER f/u Encounter Details Date Type Department Care Team Description 09/23/2022 Home Visit [facility], [facility] [address] [facility] [place] [address] Brooke Jose RN [facility] [address] Allergies Active Allergy Reactions Severity Noted Date [...] as of this encounter (statuses as of 09/23/2022) Medications Medication Sig Dispensed Refills Start Date End Date Status DEMIAN BISWAS LANCETS 33G MISC Check blood sugars 3-4 times daily 180 Each 5 08/01/2018 Active oxygen GASIndications:ELISSA (obstructive sleep apnea) 2 lpm continuous 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:Rn Urology 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 1 Each 0 04/08/2020 Active Blood Glucose Monitoring Suppl (BitStashTOUCH ULTRA 2) w/Device KIT Use to test BG values 1 Kit 0 05/20/2020 Active Acetaminophen 500 MG Oral Tablet Take 1 Tablet by mouth every 6 hours as needed. 0 Active CPAP every night at bedtime. 0 Active BD Pen Needle Short U/F 31G X 8 MM (Insulin Pen Needle) use five times daily 500 Each 3 11/04/2021 Active Trust MetricsTouch Ultra Blue In Vitro Strip (Glucose Blood) Check sugars 3-4 times daily, E11.9 400 Strip 3 11/04/2021 Active Trulicity 4.5 MG/0.5ML Subcutaneous Solution Pen-injector (Dulaglutide) Inject 1 pen under the skin weekly 6 mL 5 11/03/2021 Active NovoLOG FlexPen 100 UNIT/ML Subcutaneous Solution Pen-injector (insulin aspart)Indications:T ype 2 diabetes mellitus with hemoglobin A1c goal of 7.0%-8.0% ([facility]) Inject 40 units with meals + sliding scale 1 units for every 25 units BG > 150. 121 mL 3 11/04/2021 Active Tresiba FlexTouch 100 UNIT/ML Subcutaneous Solution Pen-injector (Insulin Degludec)Indications :Type 2 diabetes mellitus with hemoglobin A1c goal of 7.0%-8.0% ([facility]) INJECT 60 UNITS UNDER THE SKIN [...] 1 and CKD stage 3 ([facility]),Chronic diastolic congestive heart failure (HCC) Take 1 Capsule (400 mg) by mouth in the morning and 1 Capsule (400 mg) before bedtime. 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/31/2021 Atherosclerosis of [place] coronary arter 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 12/31/2021 [...] as of this encounter (statuses as of 09/23/2022) Resolved Problems Problem Noted Date Resolved Date [...] as of this encounter (statuses as of 09/23/2022) Immunizations Name Administration Dates Next Due COVID-19 mRNA, LNP-s, No Pre serve, 2-Dose Series ([employer]) 01/08/2021,12/18/2020 COVID-19, LNP-s, No Preserve , Navarro-sucrose, Ages 12+ (Pfizer) 2022,10/01/2021 Pneumococcal Conjugate Vacci ne, 20-valent ([id number]) 03/12/2022 Pneumococcal Polysaccharide PPV23 (Pneumovax) 08/22/2009,06/15/2006 Seasonal [...] got money to buy more. Never true 09/13/2022 Within the past 12 months, t he food you bought just didn't last and you didn't have money to get more. Never true 09/13/2022 Sex Assigned at Date Recorded Female 11/07/2019 2:[address] Job Start Date Occupation Industry Not on file Not on file Not on file documented as of this encounter Last Filed Vital Signs Vital Sign Reading Time Taken Comments Blood Pressure 108/62 09/23/2022 11:44 AM EST Pulse 98 09/23/2022 11:44 AM EST Temperature 36.3 C (97.3 F) 09/23/2022 11:[address] Respiratory Rate 22 09/23/2022 11:44 AM EST Oxygen Saturation 99% 09/23/2022 11:44 AM EST 3lnc Inhaled Oxygen Concentration - - Weight 140.6 kg (310 lb) 09/23/2022 11:44 AM EST Height - - Body Mass Index 51.59 09/13/2022 12:59 PM EST documented in this encounter Progress Notes * Brooke Jose RN - 09/23/2022 9:48 AM EST Images from the original note were not included. [facility] Branch Manager Monthly Visit Date: 09/23/2022 Time: 9:48 AM Name: Stephanie Camp : 1955 Situation: return Background: [facility] Enrollment Date: 06/14/22- Focused Care (3-9 months) PMHx: Wagoner filter, CHF, CHF, DVT, venous insufficiency, vasculitis, CAD, carotid stenosis, chronic hypoxemic respiratory failure, ELISSA, o2 dependent, GERD, DM, Hx PE, spinal stenosis Utilization: 07/16 - - [facility] Admission - falls, acute on chronic CHF, acute on chronic respiratory failure,cellulitis R hand d/t cat bite 07/29 - 03/17 - [facility] - acute on chronic resp fx with hypoxia, UTI, chronic diastolic HF, d/c home on doxycycline and cefdinir 09/06/22 - Acute [facility] HV - DTP initiated, keflex for cellulitis, urine culture was negative 09/19/22 - [facility] ER - abdominal pain, CT negative, no changes Assessment: Had PCP f/u 09/13/22 - note reviewed, no changes to plan of care/meds Was to [facility] ER on 09/19/22 for abdominal pain DID NOT CALL [facility] PRIOR TO GOING TO ER - REINFORCED TO CALL [facility] PRIOR TO ANY UTILIZATION, VERBALIZEDUNDERSTANDING States did not call ''b/c it was Deanne'' Reinforced that nurse is available to call 18/04 Reports abx usually cause constipation and Dr. Andujar ''told me that my colon went into spasms'' Has been going between diarrhea and constipation taking Metamucil for management - takes every morning Also taking Senna-Docusate 1 bid Denies abdominal pain Having occasional ''pressure'' Has been avoiding Percocet as much as possible but took one last night and evening of 09/19 after home from ER CHF: 310lbs today Dry wt 313lbs Breathing at baseline DM: 140 this morning Recent range 97-340 340 was [place] Eve when had chocolate cake (date went to ER with abdominal pain) Not currently using Dexcom Checking 3-4x/day L 3rd TOE PAIN, EDEMA, REDNESS: Onset of s/s 09/19/22 Denies injury Pain not limiting mobility Denies fever, chills Not hot to touch Continue to monitor Instructed to call if has increased pain, redness or becomes hot to touch - agreed to do so Reports feeling better today than has been and is less red than yesterday, decreased pain with ambulation Recommendation: Keep pcp apt on 09/29/22 - plans to do so Physical Exam: BP 108/62 | Pulse 98 | Temp 36.3 C (97.3 F) | Resp 22 | Wt (!) 140.6 kg (310 lb) | LMP 03/11/2003 | SpO2 99% Comment: 3lnc | BMI 51.59 kg/m | BSA 2.54 m Pain 4 Physical Exam Constitutional: Appearance: She is obese. HENT: Head: Normocephalic and atraumatic. Cardiovascular: Rate and Rhythm: Normal rate and regular rhythm. Pulmonary: Effort: Pulmonary effort is normal. Breath sounds: Rales (b/l bases) present. Abdominal: General: Bowel sounds are normal. There is distension. Palpations: Abdomen is soft. Tenderness: There [...] abnormal. Problems/Symptoms: Review of Systems Constitutional: Negative. Eyes: Negative. Respiratory: Positive for shortness of breath (above baseline). Negative for cough. Cardiovascular: Positive for leg swelling. Negative for chest pain and palpitations. Gastrointestinal: Positive for constipation and diarrhea. Negative for abdominal distention, abdominal pain, blood in stool, nausea and vomiting. Endocrine: Negative. Genitourinary: Positive [...] Well Being: No change in living situation [facility] Completed this Visit: Yes. [facility]: Reason Completed: Status post ED visit/hospital admission [facility] ([facility]) Fall Risk Assessment Tool Age 65+: Yes (09/23/221199) Diagnosis (3 or more co-existing): Yes (09/23/221199) Prior history of falls within 3 months: No (09/23/221199) Incontinence: Yes (09/23/221199) Visual impairment: No (09/23/221199) Impaired functional mobility: Yes (09/23/221199) Environmental hazards: Yes (09/23/221199) Poly Pharmacy (4 or more prescriptions - any type): Yes (09/23/221199) Pain affecting level of function: Yes (09/23/221199) Cognitive impairment: No (09/23/221199) Score - a score of 4 or more is considered at risk for fallin (09/23/221199) [facility] Interventions: Fall education provided, reviewed/provided Fall brochure Advanced Care Planning: No documentation, recently updated. Reinforcement/Education: Reviewed HF symptom monitoring: -Weigh self daily [...] if at night -increased fatigue or vertigo Advised to avoid sauerkraut for holiday DIABETES: -Blood sugar testing schedule: Twice a [...] a day 5 servings fruit/vegetable per day Educated on home safety: Create a fall [...] Purspose. Treatment/Plan: INSTRUCT AT EACH VISIT: CALL [facility] PRIOR TO GOING TO ER FOR ANY REASON USES PILL PACKS FROM [employer] as of 08/03/22 - 313lbs Weigh daily and record Frequent UTI's - typically asymptomatic until has fever, has standing order for urine culture Ambulate with roller walker at ALL times o2 2lnc at rest, 4Lnc with activity - [facility] [phone] WEAR O2 AT ALL TIMES OR BECOMES [...] Updated Exacerbation Plan Patient Needs to Remember: CALL [facility] WITH ANY RED FLAGS Referrals Needed: none Follow Up: Is there cellular connectivity/connectivity in the home? Yes Does the patient have internet in the home? Yes Patient encouraged to call the intake phone number for all urgent but not emergent issues. Is the patient new to [facility] within the last 30 days? No, Assess appropriateness for upcoming telehealth visits. Cancel telehealth visits & schedule home visit with care produce team lead(s)as indicated. Provider is in agreement with Plan of Care: Yes Scheduled to follow up with patient in 2 weeks. Brooke Jose RN 09/23/2022 9:48 AM documented in this encounter Plan of Treatment Upcoming Encounters Date Type Specialty Care Team Description 09/29/2022 Scheduled Telephone [facility], Nurse Thor Prac [address] [place] [address] 09/29/2022 Office Visit [facility] Galdino Andujar DO [address] [place] [address] 09/30/2022 Imaging Radiology 10/04/2022 Office Visit [facility], Pharmacist [address] [place] [address] 10/11/2022 Home Visit [facility] Brooke Jose RN [address] [facility] [place] [address] 01/19/2023 PulmDiagnostic Pulmonary Function West, Pft [address] [place] [address] 08/08/2023 Nurse Only [employer], Nurse Annual Wellness Visit [address] [facility] [address] Scheduled Procedures Name Priority Associated Diagnoses Date/Ti [...] Additional history exists CKD PHOS USE SMARTSET 58168 01/07/202312/25, 03/12/2021, 11/17/2020, Additional history exists DIABETES-FOOT EXAM 01/07/2023 01/07/2022, 0 01/14/2021, 11/07/2019, Additional history exists TSH FOR THYROID MEDICATION MONITORING YEARLY 01/07/2023 01/07/2022, 12/25/2020, 05/06/2020, Additional history exists GFR - Renal Function 03/14/2023 09/13/2022, 08/13/2022, 07/02/2022, Additional history exists DIABETES-EYE EXAM 05/24/2023 05/24/2022, , 04/07/2020, Additional history exists CKD HGB USE SMARTSET 74341 06/29/202306/29, 06/29/2022, 01/07/2022, Additional history exists Depression Screening, Annual for Pts 12 and Over 09/13/2023 09/13/2022, 06/12/2018 Mammogram 02/12/2024 02/11/2022, 01/0 02/2021, 07/10/2019, [...] Documents on File Type Date Recorded Patient Office Machines Teacher Expl anation POLST 03/19/2020 4:25 PM POLST [...] patient have Health Care Power of Video Tape Transferrer? No Healthcare Agents on File Name Relationship Healthcare Agent Relationship Communication Galdino Camp Other - (no specific identity) Health Care Power of Video Tape Transferrer Princess Allen Other - (no specific identity) Health Care Power of Video Tape Transferrer Care Teams Dog Breeder Relationship Specialty Start Date End Date Galdino Andujar, DO [address] [place] [address] PCP - General Internal Medicine 01/07/22 documented as of this encounter
--- OUTSIDE RECORDS SUMMARY | 2023-06-01 04:22 | External Medical Summary | Summary of Care ---
Author Name Unknown Organization [place] [address] Care Team Providers Care Building Construction Teacher Name Role Phone Galdino Andujar DO Primary Care Provider [phone] Reason for Visit * Reason Onset Date Comments Information 09/21/2022 Encounter Details Date Type Department Care Team Description 09/21/2022 Telephone Family Practice [address] [facility] [place] [address] [place] [id number] Galdino Andujar DO [address] [place], [place] [id number] Information Allergies Active Allergy Reactions Severity Noted [...] as of this encounter (statuses as of 09/21/2022) Medications Medication Sig Dispensed Refills Start Date End Date Status ONETOUCH DELICA LANCETS 33G MISC Check blood sugars 3-4 times daily 180 Each 5 08/01/2018 Active oxygen GASIndications:ELISSA (obstructive sleep apnea) 2 lpm continuous 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:Hairspring Truing Inspector zahra diastolic congestive heart failure (HCC) [...] of 7.0%-8.0% ([facility]) Inject 40 units with meals + sliding scale 1 units for every 25 units BG > 150. 121 mL 3 11/04/2021 Active Tresiba FlexTouch 100 UNIT/ML Subcutaneous Solution Pen-injector (Insulin Degludec)Indications :Type 2 diabetes mellitus with hemoglobin A1c goal of 7.0%-8.0% ([facility]) INJECT 60 UNITS UNDER [...] A1c goal of less than 8.0% ([facility]) Take 1 Tablet (500 [...] as of this encounter (statuses as of 09/21/2022) Active Problems Problem Noted Date ILD (interstitial [...] as of this encounter (statuses as of 09/21/2022) Resolved Problems Problem Noted Date Resolved Date [...] as of this encounter (statuses as of 09/21/2022) Immunizations Name Administration Dates Next Due COVID-19 mRNA, LNP-s, No Pre serve, 2-Dose Series ([employer]) 01/08/2021,12/18/2020 COVID-19, LNP-s, No Preserve , Navarro-sucrose, Ages 12+ (Pfizer) 2022,10/01/2021 Pneumococcal Conjugate Vacci ne, 20-valent ([id number]) 03/12/2022 Pneumococcal Polysaccharide PPV23 (Pneumovax) 08/22/2009,06/15/2006 Seasonal [...] Telephone Encounter - Shira Gross LPN - 09/21/2022 5:19 PM EST Patient is aware and will comply. Thank you * Telephone Encounter - Ngozi Villatoro DO - 09/21/2022 5:13 PM EST The dicyclomine can cause constipation in some patients. This seems to be what caused her symptoms in the first place. Would avoid for now if able and start daily metamucil per Dr. Andujar. * Telephone Encounter - Shira Gross LPN - 09/21/2022 12:18 PM EST Patient denies fever. Can she also take bentyl? Thank you * Telephone Encounter - Galdino Andujar DO - 09/21/2022 11:23 AM EST See if fever is present Start daily Metamucil * Telephone Encounter - Shira Gross LPN - 09/21/2022 10:16 AM EST Called patient, states that pain is dull today. States she was having some constipation then developed some diarrhea. When she was having the "bad pain" she "couldn't go". Now she is having some diarrhea. Yesterday she started with diarrhea. Is able to drink fluids. Is eating a bland diet. Patient is questioning if she should take something for diarrhea. Advised her to not take anything for diarrhea. Does have irritable bowel syndrome. She does have bentyl at home, can she take this. Not on current medication list. Denies chest pain or sob. Blood sugars are running less than 150's. Encouraged fluids and light diet. Thank you * Telephone Encounter - ELISSA Salguero - 09/21/2022 9:20 AM EST Patient called and verbalized that she went to the ER on [address] for stomach pains. The pains were there for about 10 days off and on. Patient would like a call back from nurse Silva. documented in this encounter Plan of Treatment Upcoming Encounters Date Type Specialty Care Team Description 09/23/2022 Home Visit [facility] Brooke Jose, RN [address] [place] [address] 09/29/2022 Scheduled Telephone [facility], Nurse Fam Prac [address] [place] [address] 09/29/2022 Office Visit [facility] Medicine Galdino Andujar, [address] [place] [address] 09/30/2022 Imaging Radiology 10/04/2022 Office Visit [facility], Pharmacist [address] [place] [address] 01/19/2023 PulmDiagnostic Pulmonary Function West, Pft [address] [facility] [place] [address] 08/08/2023 Nurse Only [employer], Nurse Annual Wellness Visit [address] [place] [address] Scheduled Procedures Name Priority Associated Diagnoses Date/Ti [...] Additional history exists CKD PHOS USE SMARTSET 02396 01/07/202312/25, 03/12/2021, 11/17/2020, Additional history exists DIABETES-FOOT EXAM 01/07/2023 01/07/2022, 0 01/14/2021, 11/07/2019, Additional history exists TSH FOR THYROID MEDICATION MONITORING YEARLY 01/07/2023 01/07/2022, 12/25/2020, 05/06/2020, Additional history exists GFR - Renal Function 03/14/2023 09/13/2022, 08/13/2022, 07/02/2022, Additional history exists DIABETES-EYE EXAM 05/24/2023 05/24/2022, , 04/07/2020, Additional history exists CKD HGB USE SMARTSET 94292 06/29/202306/29, 06/29/2022, 01/07/2022, Additional history exists Depression [...] Documents on File Type Date Recorded Patient Millwork Estimator Expl anation POLST 03/19/2020 4:25 PM POLST [...] the patient have Health Care Power of Planner Scheduler? No Healthcare Agents on File Name Relationship Healthcare Agent Relationship Communication Galdino Camp Other - (no specific identity) Health Care Power of Planner Scheduler Princess Other - (no specific identity) Health Care Power of Planner Scheduler Care Teams Building Construction Teacher Relationship Specialty Start Date End Date Galdino Andujar, DO [address] [place] [address] PCP - General Internal Medicine 01/07/22 documented as of this encounter
--- OUTSIDE RECORDS SUMMARY | 2023-06-01 04:22 | External Medical Summary | Summary of Care ---
Author Name Unknown Organization [place] [address] Care Team Providers Care Chemist Instrumentation Name Role Phone Galdino Andujar DO Primary Care Provider [phone] Reason for Visit * Reason Onset Date Comments [facility]: Maintenance 09/07/2022 Encounter Details Date Type Department Care Team Description 09/07/2022 Scheduled Telephone [facility], [facility] [address] [place] [address] Coordinator, [facility] 132 [facility] [place] [address] Allergies Active Allergy Reactions Severity Noted Date [...] as of this encounter (statuses as of 09/17/2022) Medications Medication Sig Dispensed Refills Start Date [...] times daily 500 Each 3 11/04/2021 Active PrimesportTouch Ultra Blue In Vitro Strip (Glucose Blood) Check sugars 3-4 times daily, E11.9 400 Strip 3 11/04/2021 Active Trulicity 4.5 MG/0.5ML Subcutaneous Solution Pen-injector (Dulaglutide) Inject 1 pen under the skin weekly 6 mL 5 11/03/2021 Active NovoLOG FlexPen 100 UNIT/ML Subcutaneous Solution Pen-injector (insulin aspart)Indications: Type 2 diabetes mellitus with hemoglobin A1c goal of 7.0%-8.0% ([facility]) Inject 40 units with meals + [...] [facility]),Chronic diastolic congestive heart failure (HCC) Take [...] [facility]),Chronic diastolic congestive heart failure (HCC) Take [...] when instructed. 120 Tablet 1 09/06/2022 Active Nortriptyline HCl 25 MG Oral Capsule (Pamelor)Indication s:Moderate episode of recurrent major depressive disorder (HCC),Fibromyalgia Take 1 Capsule (25 mg) by mouth at bedtime. 30 Capsule 3 09/02/2022 09/13/20 22 Discontinue d(Medicatio n/Dose Changed) clonazePAM 0.5 MG Oral Tablet (KlonoPIN)Indicatio ns:Anxiety state Take 1 Tablet (0.5 mg) by mouth in the morning and 1 Tablet (0.5 mg) before bedtime. 60 Tablet 0 09/06/2022 09/13/20 Discontinue d(Refill) Cephalexin 500 MG Oral CapsuleIndications: Cellulitis of left lower extremity Take 1 Capsule (500 mg) by mouth in the morning and 1 Capsule (500 mg) at noon and 1 Capsule (500 mg) before bedtime. Do all this for 10 days. 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 Abnormality of gait 02/02/[address] 08/19/2014 History of pulmonary [...] as of this encounter (statuses as of 09/17/2022) Resolved Problems Problem Noted Date Resolved Date [...] inactive term HTN, GOAL BELOW 130/80 10/22/2009 08/23/201 2 Overview: Per HTN Taxonomy. Pneumonia in [...] DM type 2, not at goal 05/29/2002 10/200 9 Overview: Modified per Diabetes protocol #14. TENOSYNOVITIS FOOT-ANKLE 12/26/2001 017 Goiter 01/13/2000 06/28/2011 BACKACHE NOS 08/26/1999 05/24/2017 OBESITY, UNSPECIFIED 08/26/1999 12/23/2009 Overview: Per Obesity Taxonomy Perforation of intestine 017 Overview: COLON Diverticulitis documented as of this encounter (statuses as of 09/17/2022) Immunizations Name Administration Dates Next Due COVID-19 mRNA, LNP-s, No Pre serve, 2-Dose Series (Pfizer) 01/08/2021,12/18/2020 COVID-19, LNP-s, No Preserve , Navarro-sucrose, Ages 12+ (Pfizer) 2022,10/01/2021 Pneumococcal Conjugate Vacci ne, 20-valent ([id number]) 03/12/2022 Pneumococcal Polysaccharide PPV23 (Pneumovax) 08/22/2009,06/15/2006 Seasonal [...] Telephone Encounter - Rosalee Barker LPN - 09/07/2022 12:52 PM EST Call top pt for f/up on DTP She reports she is feeling better today, abdomen no longer feels full. Wt decreased by 3 lbs Confirmed she is taking DTP as instructed. No more pickles. Agreeable to f/up call 09/08 Reviewed HF symptom monitoring: -Weigh self daily [...] if at night -increased fatigue or vertigo documented in this encounter Plan of Treatment Upcoming Encounters Date Type Specialty Care Team Description 09/23/2022 [facility] Visit [facility] Brooke Jose, RN [facility] [address] 09/29/2022 Scheduled Telephone [facility], Nurse Fam Prac [address] [address] 09/29/2022 Office Visit [facility] Galdino Andujar, [address] [place] [address] 10/04/2022 Office Visit [facility], Pharmacist [address] [place] [address] 01/19/2023 PulmDiagnostic Pulmonary Function [place], Pft 132 [facility] [place] [address] 08/08/2023 Nurse Only [facility], Nurse Annual Wellness Visit [address] [address] Scheduled Procedures Name Priority Associated Diagnoses Date/Ti [...] Additional history exists CKD PHOS USE SMARTSET 90784 01/07/2023 04/12/2021, 03/12/2021, 11/17/2020, Additional history exists DIABETES-FOOT EXAM 01/07/2023 01/07/2022, 0 01/14/2021, 11/07/2019, Additional history exists TSH FOR THYROID MEDICATION MONITORING YEARLY 01/07/2023 01/07/2022, 12/25/2020, 05/06/2020, Additional history exists GFR - Renal Function 03/14/2023 09/13/2022, 08/13/2022, 07/02/2022, Additional history exists DIABETES-EYE EXAM 05/24/2023 05/24/2022, , 04/07/2020, Additional history exists CKD HGB USE SMARTSET 44071 06/29/202306/29, 06/29/2022, 01/07/2022, Additional history exists Depression [...] Documents on File Type Date Recorded Patient Hoop Bender Tank Expl anation POLST 03/19/2020 4:25 PM POLST [...] the patient have Health Care Power of Type Rolling Machine Operator? No Healthcare Agents on File Name Relationship Healthcare Agent Relationship Communication Galdino Camp Other - (no specific identity) Health Care Power of Type Rolling Machine Operator Princess Allen Other - (no specific identity) Health Care Power of Type Rolling Machine Operator Care Teams Chemist Instrumentation Relationship Specialty Start Date End Date Galdino Andujar, DO 293 [place] [address] PCP - General Internal Medicine 01/07/22 documented as of this encounter
--- OUTSIDE RECORDS SUMMARY | 2023-06-01 04:22 | External Medical Summary | Summary of Care ---
Author Name Unknown Organization [place] [address] Care Team Providers Care Coater Carbon Paper Name Role Phone PratimaGaldino DO Primary Care Provider [phone] Reason for Visit * Reason Comments [facility]: Acute ER f/u Encounter Details Date Type Department Care Team Description 09/23/2022 Home Visit [facility], [facility] 132 [facility] [place] [address] Brooke Jose RN [facility] [place] [address] Allergies Active Allergy Reactions Severity Noted Date [...] lpm continuous 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:Powder Shoveler 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 1 Each 0 04/08/2020 Active Blood Glucose Monitoring Suppl (Massive DamageTOUCH ULTRA 2) w/Device KIT Use to test BG values 1 Kit 0 05/20/2020 Active Acetaminophen 500 MG Oral Tablet Take 1 Tablet by mouth every 6 hours as needed. 0 Active CPAP every night at bedtime. 0 Active BD Pen Needle Short U/F 31G X 8 MM (Insulin Pen Needle) use five times daily 500 Each 3 11/04/2021 Active Piaochong.comTouch Ultra Blue In Vitro Strip (Glucose Blood) [...] [facility]) Inject 40 units with meals + sliding scale 1 units for every 25 units BG > 150. 121 mL 3 11/04/2021 Active Tresiba FlexTouch 100 UNIT/ML Subcutaneous Solution Pen-injector (Insulin Degludec)Indications :Type 2 diabetes mellitus with hemoglobin A1c goal of 7.0%-8.0% ([facility]) INJECT 60 UNITS UNDER THE SKIN EVERY [...] [facility] [place]),Chronic diastolic congestive heart failure (HCC) Take 1 [...] [facility]),Chronic diastolic congestive heart failure (HCC) Take 1 [...] mRNA, LNP-s, No Pre serve, 2-Dose Series (APProtect) 01/08/2021,12/18/2020 COVID-19, LNP-s, No Preserve , Navarro-sucrose, Ages 12+ (Pfizer) 2022,10/01/2021 Pneumococcal Conjugate Vacci ne, 20-valent ([id number]) 03/12/2022 Pneumococcal Polysaccharide PPV23 (Pneumovax) 08/22/2009,06/15/2006 Seasonal [...] note were not included. 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 Monthly Visit Date: 09/23/2022 Time: 9:48 AM Name: Stephanie Camp : 1955 Situation: return Background: [facility] Enrollment Date: 06/14/22- Focused Care (3-9 months) PMHx: [place] filter, CHF, CHF, DVT, venous insufficiency, vasculitis, CAD, carotid stenosis, chronic hypoxemic respiratory failure, ELISSA, o2 dependent, GERD, DM, Hx PE, spinal stenosis Utilization: 07/16 - - [facility] Admission - falls, acute on chronic CHF, acute on chronic respiratory failure,cellulitis R hand d/t cat bite 07/29 - 03/17 - [facility] - acute on chronic resp fx with hypoxia, UTI, chronic diastolic HF, d/c home on doxycycline and cefdinir 09/06/22 - Acute [facility] HV - DTP initiated, keflex for cellulitis, urine culture was negative 09/19/22 - [facility] ER - abdominal pain, CT negative, no changes Assessment: Had PCP f/u 09/13/22 - note reviewed, no changes to plan of care/meds Was to [facility] ER on 09/19/22 for abdominal pain [...] this morning Recent range [phone] was [place] Eve when had chocolate cake (date went [...] Well Being: No change in living situation [facility] Completed this Visit: Yes. [facility]: Reason Completed: Status post ED visit/hospital admission [facility] ([facility]) Fall Risk Assessment Tool Age [...] is considered at risk for fallin (09/23/221199) [facility] Interventions: Fall education provided, reviewed/provided Fall [...] Purspose. Treatment/Plan: INSTRUCT AT EACH VISIT: CALL [facility] PRIOR TO GOING TO ER FOR ANY REASON USES PILL PACKS FROM [employer] as of 08/03/22 - 313lbs Weigh daily and record Frequent UTI's - typically asymptomatic until has fever, has standing order for urine culture Ambulate with roller walker at ALL times o2 2lnc at rest, 4Lnc with activity - [facility] [phone] WEAR O2 AT ALL TIMES OR BECOMES [...] emergent issues. Is the patient new to [facility] within the last 30 days? No, Assess appropriateness for upcoming telehealth visits. Cancel telehealth visits & schedule home visit with care steam turbine operator(s)as indicated. Provider is in agreement with Plan of Care: Yes Scheduled to follow up with patient in 2 weeks. Brooke Jose RN 09/23/2022 9:48 AM documented in this encounter Plan of Treatment Upcoming Encounters Date Type Specialty Care Team Description 09/29/2022 Scheduled Telephone [facility], Nurse Thor Prac [address] [place] [address] 09/29/2022 Office Visit [facility] Galdino Andujar DO 293 [facility] [address] 09/30/2022 Imaging Radiology 10/04/2022 Office Visit [facility], Pharmacist [address] [place] [address] 10/11/2022 Home Visit [facility] Brooke Jose RN 132 [facility] [place] [address] 01/19/2023 PulmDiagnostic Pulmonary Function [place], Pft [address] [place] [address] 08/08/2023 Nurse Only [employer], Nurse Annual Wellness Visit 65 [place] [facility] [address] Scheduled Procedures Name Priority Associated Diagnoses Date/Ti [...] Additional history exists CKD PHOS USE SMARTSET 42490 01/07/202312/25, 03/12/2021, 11/17/2020, Additional history exists DIABETES-FOOT EXAM 01/07/2023 01/07/2022, 0 01/14/2021, 11/07/2019, Additional history exists TSH FOR THYROID MEDICATION MONITORING YEARLY 01/07/2023 01/07/2022, 12/25/2020, 05/06/2020, Additional history exists GFR - Renal Function 03/14/2023 09/13/2022, 08/13/2022, 07/02/2022, Additional history exists DIABETES-EYE EXAM 05/24/2023 05/24/2022, , 04/07/2020, Additional history exists CKD HGB USE SMARTSET 25531 06/29/202306/29, 06/29/2022, 01/07/2022, Additional history exists Depression [...] Documents on File Type Date Recorded Patient Candy Maker Helper Expl anation POLST 03/19/2020 4:25 PM [...] the patient have Health Care Power of Packing Room Worker? No Healthcare Agents on File Name Relationship Healthcare Agent Relationship Communication Galdino Camp Other - (no specific identity) Health Care Power of Packing Room Worker Princess Allen Other - (no specific identity) Health Care Power of Packing Room Worker Care Teams Coater Carbon Paper Relationship Specialty Start Date End Date Galdino Andujar, DO [address] [place] [address] PCP - General Internal Medicine 01/07/22 documented as of this encounter
--- OUTSIDE RECORDS SUMMARY | 2023-06-01 04:22 | External Medical Summary | Summary of Care ---
Author Name Unknown Organization [place] [address] Care Team Providers Care Sales Store Checker Name Role Phone Galdino Andujar DO Primary Care Provider Encounter Details Date Type Department Care Team Description 10/11/2022 Orders Only [facility], [place] 132 [facility] [place] [address] Brooke Jose RN 132 [place] [address] Nasal congestion* Allergies Active Allergy Reactions Severity Noted Date [...] lpm continuous 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:Buffet Runner zahra diastolic congestive heart failure (HCC) If [...] A1c goal of 7.0%-8.0% ([facility]) INJECT 60 UNITS UNDER THE SKIN EVERY [...] goal of less than 8.0% ([facility]) Take 1 Tablet (500 mg) by mouth [...] 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 Abnormality of gait 02/02/[address] [address] 08/19/2014 History of pulmonary [...] mRNA, LNP-s, No Pre serve, 2-Dose Series (Live Life 360) 01/08/2021,12/18/2020 COVID-19, LNP-s, No Preserve , Navarro-sucrose, Ages 12+ (Pfizer) 2022,10/01/2021 Pneumococcal Conjugate Vacci ne, 20-valent ([id number]) 03/12/2022 Pneumococcal Polysaccharide PPV23 (Pneumovax) 08/22/2009,06/15/2006 Seasonal [...] as of this encounter Progress Notes * Brooke Jose RN - 10/11/2022 11:29 AM EST res documented in this encounter Plan of Treatment Upcoming Encounters Date Type Specialty Care Team Description 10/12/2022 Scheduled Telephone [facility], [facility] Geoffrey Cisneros [address] [place] [address] [place] [address] 10/13/2022 Scheduled Telephone [facility] Community Director, [place] 132 [facility] [place] [address] 10/18/2022 Telemedicine [facility], Pharmacist [address] [place] [address] 11/01/2022 Home Visit Family Medicine Mira Duong, Community Health Manager Shipping [address] [place] [address] 11/01/2022 Office Visit [facility] Medicine Galdino Andujar, 293 [place] [address] 11/22/2022 Home Visit [facility] Brooke Jose RN 132 [facility] [place] [address] 01/19/2023 PulmDiagnostic Pulmonary Function [place], Pft 132 [facility] [place] [address] 08/08/2023 Nurse Only [employer], Nurse Annual Wellness Visit [address] [place] [address] Scheduled Orders Name Type Priority Associated Diagnoses Orde r Schedule RESPIRATORY PATHOGEN PANEL, PCR Lab Routine Nasal congestion Expected: 10/11/2022 (Approximate), Expires: 10/11/2023 Scheduled Procedures Name Priority Associated Diagnoses Date/Ti [...] Additional history exists CKD PHOS USE SMARTSET 65135 01/07/202312/25, 03/12/2021, 11/17/2020, Additional history exists DIABETES-FOOT EXAM 01/07/2023 01/07/2022, 0 01/14/2021, 11/07/2019, Additional history exists TSH FOR THYROID MEDICATION MONITORING YEARLY 01/07/2023 01/07/2022, 12/25/2020, 05/06/2020, Additional history exists GFR - Renal Function 03/14/2023 09/13/2022, 08/13/2022, 07/02/2022, Additional history exists DIABETES-EYE EXAM 05/24/2023 05/24/2022, , 04/07/2020, Additional history exists CKD HGB USE SMARTSET 99699 06/29/202306/29, 06/29/2022, 01/07/2022, Additional history exists Depression [...] of this encounter Visit Diagnoses Diagnosis Nasal congestion- Primary Other diseases of nasal cavity and sinuses documented in this encounter Advance Directives Documents on File Type Date Recorded Patient Jaw Skinner Expl anation POLST 03/19/2020 4:25 PM POLST [...] the patient have Health Care Power of Maternity Floor Supervisor? No Healthcare Agents on File Name Relationship Healthcare Agent Relationship Communication Galdino Camp Other - (no specific identity) Health Care Power of Maternity Floor Supervisor Princess Other - (no specific identity) Health Care Power of Maternity Floor Supervisor Care Teams Sales Store Checker Relationship Specialty Start Date End Date Galdino Andujar, DO [address] [place] [address] PCP - General Internal Medicine 01/07/22 documented as of this encounter
--- OUTSIDE RECORDS SUMMARY | 2023-06-01 04:22 | External Medical Summary ---
Author Name Unknown Address Unknown Organization K01:[facility] - [address] [facility] [address] Laboratory Report Ordering Provider Test Date Status NIKA ESTRADA 10/11/2022 12:14:36 Final Observation Date Value Abnormality Reference (Units ) Status Adenovirus DNA [Presence] in Nasopharynx by INES with non-probe detection 10/11/2022 12:14:36 Negative Negative Final Human coronavirus 229E RNA [Presence] in Nasopharynx by INES with non-probe detection 10/11/2022 12:14:36 Negative Negative Final Human coronavirus HKU1 RNA [Presence] in Nasopharynx by INES with non-probe detection 10/11/2022 12:14:36 Negative Negative Final Human coronavirus NL63 RNA [Presence] in Nasopharynx by INES with non-probe detection 10/11/2022 12:14:36 Negative Negative Final Human coronavirus OC43 RNA [Presence] in Nasopharynx by INES with non-probe detection 10/11/2022 12:14:36 Negative Negative Final SARS-CoV-2 (COVID-19) RNA [Presence] in Nasopharynx by INES with non-probe detection 10/11/2022 12:14:36 Negative Negative Final Human metapneumovirus RNA [Presence] in Nasopharynx by INES with non-probe detection 10/11/2022 12:14:36 Negative Negative Final Rhinovirus+Enterovirus RNA [Presence] in Nasopharynx by INES with non-probe detection 10/11/2022 12:14:36 Negative Negative Final Influenza virus A RNA [Presence] in Nasopharynx by INES with non-probe detection 10/11/2022 12:14:36 Negative Negative Final Influenza virus B RNA [Presence] in Nasopharynx by INES with non-probe detection 10/11/2022 12:14:36 Negative Negative Final Parainfluenza virus 1 RNA [Presence] in Nasopharynx by INES with non-probe detection 10/11/2022 12:14:36 Negative Negative Final Parainfluenza virus 2 RNA [Presence] in Nasopharynx by INES with non-probe detection 10/11/2022 12:14:36 Negative Negative Final Parainfluenza virus 3 RNA [Presence] in Nasopharynx by INES with non-probe detection 10/11/2022 12:14:36 Negative Negative Final Parainfluenza virus 4 RNA [Presence] in Nasopharynx by INES with non-probe detection 10/11/2022 12:14:36 Negative Negative Final Respiratory syncytial virus RNA [Presence] in Nasopharynx by INES with non-probe detection 10/11/2022 12:14:36 Negative Negative Final Bordetella pertussis.pertussis toxin promoter region [Presence] in Nasopharynx by INES with non-probe detection 10/11/2022 12:14:36 Negative Negative Final Chlamydophila pneumoniae DNA [Presence] in Nasopharynx by INES with non-probe detection 10/11/2022 12:14:36 Negative Negative Final Mycoplasma pneumoniae DNA [Presence] in Nasopharynx by INES with non-probe detection 10/11/2022 12:14:36 Negative Negative Final Bordetella parapertussis [id number] DNA [Presence] in Nasopharynx by INES with non-probe detection 10/11/2022 12:14:36 Negative Negative Final Performing Location [facility] [place] [address] [facility] [address]
--- OUTSIDE RECORDS SUMMARY | 2023-06-01 04:22 | External Medical Summary | Summary of Care ---
Author Name Unknown Organization [place] [address] Care Team Providers Care Displayer Name Role Phone Galdino Andujar DO Primary Care Provider [phone] Reason for Visit * Reason Comments Outpatient Testing Encounter Details Date Type Department Care Team Description 10/11/2022 Laboratory Laboratory [facility] [address] [place] [address] Pod3, Specimen Drop Off [facility] [place] [address] [place] [address] Nasal congestion Allergies Active Allergy Reactions Severity [...] lpm continuous 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: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 Abnormality of gait 02/02/[address] [address] 08/19/2014 History of pulmonary [...] mRNA, LNP-s, No Pre serve, 2-Dose Series ([employer]) 01/08/2021,12/18/2020 COVID-19, LNP-s, No Preserve , Navarro-sucrose, Ages 12+ (Pfizer) 2022,10/01/2021 Pneumococcal Conjugate Vacci ne, 20-valent ([id number]) 03/12/2022 Pneumococcal Polysaccharide PPV23 (Pneumovax) 08/22/2009,06/15/2006 Seasonal [...] Team Description 10/12/2022 Scheduled Telephone [facility] Information Technology Advisor, [place] Cisneros [address] [place] [address] 10/13/2022 Scheduled Telephone [facility] Information Technology Advisor, [place] Cisneros [address] [place] [address] 10/18/2022 [facility], Pharmacist 65 [facility] 293 [place] [address] 11/01/2022 Home Visit Family Medicine Mira Duong, Community Health Heel Attacher [address] [place] [address] 11/01/2022 Office Visit Family Medicine Galdino Andujar, DO 293 [place] [address] 11/22/2022 Home Visit [facility] Brooke Jose RN 132 [place] [address] 01/19/2023 PulmDiagnostic Pulmonary Function [place], Pft [facility] [place] [address] 08/08/2023 Nurse Only [employer], Nurse Annual Wellness Visit [address] [place] [address] Pending Results Name Type Priority Associated Diagnoses [...] Additional history exists CKD PHOS USE SMARTSET 10139 01/07/202312/25, 03/12/2021, 11/17/2020, Additional history exists DIABETES-FOOT EXAM 01/07/2023 01/07/2022, 0 01/14/2021, 11/07/2019, Additional history exists TSH FOR THYROID MEDICATION MONITORING YEARLY 01/07/2023 01/07/2022, 12/25/2020, 05/06/2020, Additional history exists GFR - Renal Function 03/14/2023 09/13/2022, 08/13/2022, 07/02/2022, Additional history exists DIABETES-EYE EXAM 05/24/2023 05/24/2022, , 04/07/2020, Additional history exists CKD HGB USE SMARTSET 90290 06/29/202306/29, 06/29/2022, 01/07/2022, Additional history exists Depression [...] Documents on File Type Date Recorded Patient Grounds Maintenance Supervisor Andre echevarria POL 03/19/2020 4:25 PM POLST [...] the patient have Health Care Power of Warp Scouring Vat Tender? No Healthcare Agents on File Name Relationship Healthcare Agent Relationship Communication Galdino Camp Other - (no specific identity) Health Care Power of Warp Scouring Vat Tender Princess Allen Other - (no specific identity) Health Care Power of Warp Scouring Vat Tender Care Teams Displayer Relationship Specialty Start Date End Date Galdino Andujar, DO [address] [place] [address] PCP - General Internal Medicine 01/07/22 documented as of this encounter
--- OUTSIDE RECORDS SUMMARY | 2023-06-01 04:23 | External Medical Summary | Summary of Care ---
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 Name Role Phone Galdino Andujar DO Primary Care Provider [phone] Reason for Visit * Reason Onset Date Comments [facility]: Maintenance 09/08/2022 Encounter Details Date Type Department Care Team Description 09/08/2022 Scheduled Telephone [facility], [facility] [address] [place] [address] Coordinator, [facility] [address] [facility] [place] [address] Allergies Active Allergy Reactions Severity Noted Date [...] as of this encounter (statuses as of 09/08/2022) Medications Medication Sig Dispensed Refills Start Date End Date Status DEMIAN DELFRANTZ LANCETS 33G MISC Check blood sugars 3-4 times daily 180 Each 5 08/01/2018 Active oxygen GASIndications:ELISSA (obstructive sleep apnea) 2 lpm continuous 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:Line Patroller 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 1 Each 0 04/08/2020 Active Blood Glucose Monitoring Suppl (ONETOUCH ULTRA 2) w/Device KIT Use to test BG values 1 Kit 0 05/20/2020 Active Acetaminophen 500 MG Oral Tablet Take 500 mg by mouth every 6 hours as needed. [...] ([facility]) Inject 40 units with meals + sliding scale 1 units for every 25 units BG > 150. 121 mL 3 11/04/2021 Active Tresiba FlexTouch 100 UNIT/ML Subcutaneous Solution Pen-injector (Insulin Degludec)Indications :Type 2 diabetes mellitus with hemoglobin A1c goal of 7.0%-8.0% ([facility]) INJECT 60 UNITS UNDER THE SKIN [...] [facility]Chronic diastolic congestive heart failure (HCC) Take 1 [...] [facility]Chronic diastolic congestive heart failure (HCC) Take 1 [...] OTHER MEDICATIONS 100 Tablet 1 08/31/2022 Active Nortriptyline HCl 25 MG Oral Capsule (Pamelor)Indications :Moderate episode of recurrent major depressive disorder (HCC),Fibromyalgia Take 1 Capsule (25 mg) by mouth at bedtime. 30 Capsule 3 09/02/2022 Active Baclofen 5 MG Oral Tablet (Lioresal)Indication s:Fibromyalgia Take 1 Tablet (5 mg) by mouth 2 times a day as needed for Muscle spasms. 60 Tablet 1 09/02/2022 Active Levothyroxine Sodium 200 MCG Oral Tablet (Levoxyl)Indications :Postsurgical hypothyroidism TAKE ONE TABLET BY MOUTH IN THE MORNING AT LEAST 30 MINUTES PRIOR TO BREAKFAST OR OTHER MEDS 100 Tablet 1 08/31/2022 Active clonazePAM 0.5 MG Oral Tablet (KlonoPIN)Indication s:Anxiety state Take 1 Tablet (0.5 mg) by mouth in the morning and 1 Tablet (0.5 mg) before bedtime. 60 Tablet 0 09/06/2022 Active Cephalexin 500 MG Oral CapsuleIndications:C ellulitis of left lower extremity Take 1 Capsule (500 mg) by mouth in the morning and 1 Capsule (500 mg) at noon and 1 Capsule (500 mg) before bedtime. Do all this for 10 days. 30 Capsule 0 09/06/2022 2 Active Furosemide 40 MG Oral Tablet (Lasix)Indications:C hronic diastolic congestive heart failure (HCC) Take 1.5 Tablets (60 mg) by mouth in the morning and 1.5 Tablets (60 mg) before bedtime. May take 120 mg twice a day for three days when instructed. 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/31/2021 Atherosclerosis of [place] coronary arter 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 [...] as of this encounter (statuses as of 09/08/2022) Resolved Problems Problem Noted Date Resolved Date [...] Mild episode of recurrent major depressive disor zachray 08/26/2018 08/30/2022 Last Assessment & Plan: Sx [...] as of this encounter (statuses as of 09/08/2022) Immunizations Name Administration Dates Next Due COVID-19 mRNA, LNP-s, No Pre serve, 2-Dose Series ([employer]) 01/08/2021,12/18/2020 COVID-19, LNP-s, No Preserve , Navarro-sucrose, Ages 12+ (Pfizer) 2022,10/01/2021 Pneumococcal Conjugate Vacci ne, 20-valent (Mrspovi93) 03/12/2022 Pneumococcal Polysaccharide PPV23 (Pneumovax) 08/22/2009,06/15/2006 Seasonal [...] got money to buy more. Never true 08/30/2022 Within the past 12 months, t he food you bought just didn't last and you didn't have money to get more. Never true 08/30/2022 Sex Assigned at Date Recorded Female 11/07/2019 2:21 PM EST Job Start Date Occupation Industry Not on file Not on file Not on file documented as of this encounter Miscellaneous Notes * Telephone Encounter - Litlte Yoon LPN - 09/08/2022 12:24 PM EST Images from the original note were not included. [facility] Telephonic Nurse Follow-Up Call [facility] Subprogram: Focused Care Management (3-9 months) Follow Up Call Type: 48 hour follow up Acute issue requiring follow-up call: Other: f/u DTP Objective: 09/06/2022 12:21 PM 08/30/2022 2:32 PM 08/25/2022 4:36 PM 08/17/2022 12:40 PM 08/10/2022 1:35 PM VITALS ACROSS ENCOUNTERS BP 130/60 138/84 130/60 122/70 Pulse 90 98 100 94 85 Weight 142.9 kg 144.6 kg 142.4 kg 142.4 kg BMI 53.03 BMI 52.42 kg/m2 53.03 kg/m2 52.25 kg/m2 52.25 kg/m2 Lab Results Component Value Date BLOOD, URINE - [facility] Negative 09/06/2022 BLOOD, URINE POCT - [facility] Negative 08/06/2022 PROTEIN - [facility] 7.0 06/18/2022 PROTEIN, URINE - [facility] Negative 09/06/2022 PROTEIN, URINE POCT - [facility] Negative 08/06/2022 ESTERASE, URINE - [facility] Trace (A) 09/06/2022 ESTERASE, URINE POCT - [facility] Small (A) 08/06/2022 WBC AUTO - [facility] 12.26 (H) 06/29/2022 WBC, URINE - [facility] 6-9 (A) 09/06/2022 NITRITE, URINE - [facility] Negative 09/06/2022 NITRITE, URINE POCT - [facility] Negative 08/06/2022 QUANT URINE CULTURE GROWTH No significant growth 08/06/2022 Lab Results Component Value Date WBC AUTO - [facility] 12.26 (H) 06/29/2022 HGB - [facility] 13.9 06/29/2022 PLATELET AUTO - [facility] 343 06/29/2022 Lab Results Component Value Date SODIUM - [facility] 141 08/13/2022 POTASSIUM - [facility] 4.0 08/13/2022 MAGNESIUM - [facility] 1.6 08/13/2022 CO2 - [facility] 30 08/13/2022 CREATININE - [facility] 1.5 (H) 08/13/2022 ESTIMATED GLOMERULAR FILTRATION RATE - [facility] 37 (L) 08/13/2022 ALBUMIN - [facility] 4.2 06/18/2022 AST - [facility] 22 06/18/2022 ALT - [facility] 22 06/18/2022 ALKALINE PHOSPHATASE - [facility] 86 06/18/2022 No results found for: PRO BNP, LEFT VENTRICULAR EJECTION FRACTION Remote Patient Monitoring: NONE Oxygen Needs: NO supplemental oxygen needs identified DME Needs: NO DME needs identified Medications: No medication or dose adjustments made during acute episode Subjective: Condition Status: Improvement in symptoms but not at baseline Current Concerns: Spoke with patient today. She reports that she is feeling better today. She reports less bloating in abdomen. She was unable to weigh herself today d/t battery dying in scale, but feels that she did not gain. Encouraged her to be mindful of her sodium intake. Encouraged her to call [facility] with any newonset of symptoms or with any needs. Disposition: Issue resolved. All appropriate follow up scheduled. Future Visits Scheduled: Future Appointments-next 60 days Date/Time Provider Specialty Dept Phone 09/13/2022 1:00 PM (Arrive by 12:45 PM) Galdino Andujar DO [facility] [phone] 09/13/2022 1:30 PM (Arrive by 1:15 PM) Pharmacist [address] [facility] [phone] 09/21/2022 12:30 PM Brooke Jose RN [facility] [phone] 01/19/2023 2:00 PM [facility] [phone] 08/08/2023 2:00 PM Nurse Annual Wellness Visit [address] [place] [address] Ancillary [phone] Little Yoon LPN documented in this encounter Plan of Treatment Upcoming Encounters Date Type Specialty Care Team Description 09/13/2022 Office Visit Family [facility]du[facility] [address] [facility] [address] 09/13/2022 Office Visit [facility], Pharmacist [address] [place] [address] 09/21/2022 Home Visit [facility] Jose[facility] [address] [facility] [address] 01/19/2023 [facility], Pft [address] [facility] [place] [address] 08/08/2023 Nurse Only Ancillary [employer], Nurse Annual Wellness Visit [address] [facility] [address] Scheduled Procedures Name Priority Associated Diagnoses Date/Ti me COLONOSCOPY FLEXIBLE PROXIMAL DIAGNOSTIC Recall Colon cancer screening Health Maintenance Due Date Last Done Comments Hepatitis B (1 of 3 - 3-dose series) 1955 Cologuard: Ages 45-75 2000 FOBT: Ages 45-75 2000 Sigmoidoscopy: Ages 45-75 2000 COVID-19 Vaccine (5 - Booster for Pfizer series) 06/08/2022 2022, 10/01/2021, 01/08/2021, Additional history exists Depression, Most Recent Score >= 10 (will fire each visit until score < 10) 08/31/2022 08/30/2022 DIABETES-HGBA1C EVERY 6 MONTHS 11/12/2022 05/12/2022, 01/07/2022, 11/17/2020, Additional history exists Alb / Creat Ratio 01/07/2023 01/07/2022, , 05/01/2018, Additional history exists CKD PHOS USE SMARTSET 11099 01/07/202312/25, 03/12/2021, 11/17/2020, Additional history exists DIABETES-FOOT EXAM 01/07/2023 01/07/2022, 0 01/14/2021, 11/07/2019, Additional history exists TSH FOR THYROID MEDICATION MONITORING YEARLY 01/07/2023 01/07/2022, 12/25/2020, 05/06/2020, Additional history exists GFR - Renal Function 02/10/2023 08/13/2022, 07/02/2022, 06/18/2022, Additional history exists DIABETES-EYE EXAM 05/24/2023 05/24/2022, , 04/07/2020, Additional history exists CKD HGB USE SMARTSET 25488 06/29/202306/29, 06/29/2022, 01/07/2022, Additional history exists Mammogram 02/12/2024 02/11/2022, 02/2021, 07/10/2019, Additional history [...] Documents on File Type Date Recorded Patient Securities And Real Estate Director Expl anation POLST 03/19/2020 4:25 PM POL Latest Code Status [...] the patient have Health Care Power of Tree Scout? No Healthcare Agents on File Name Relationship Healthcare Agent Relationship Communication Galdino Camp Other - (no specific identity) Health Care Power of Tree Scout Princess Staplesfany Other - (no specific identity) Health Care Power of Tree Scout Care Teams Solid Waste Truck Driver Relationship Specialty Start Date End Date Galdino Andujar, DO [address] [place] [address] PCP - General Internal Medicine 01/07/22 documented as of this encounter
--- OUTSIDE RECORDS SUMMARY | 2023-06-01 04:23 | External Medical Summary | Summary of Care ---
Author Name Unknown Organization [place] [address] Care Team Providers Care Book Retailer Name Role Phone Galdino Andujar DO Primary Care Provider [phone] Reason for Visit * Reason Comments Follow Up Encounter Details Date Type Department Care Team Description 09/13/2022 Office Visit Family Practice [address] [place] [address] [place] [address] Galdino Andujar DO [address] [place] [address] 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 3b chronic kidney disease ([facility])*; Type 2 diabetes mellitus with stage 3b chronic kidney disease, with long-term current use of insulin ([facility]); Atherosclerosis of lower sioux coronary artery of lower sioux heart without angina pectoris; Spinal stenosis of lumbar region without neurogenic claudication; Gastroesophageal reflux disease with esophagitis without hemorrhage; Fibromyalgia; Postsurgical hypothyroidism; Statin intolerance; Moderate episode of recurrent major depressive disorder ([facility]); Cellulitis of right lower extremity; Chronic hypoxemic respiratory failure ([facility]); ILD (interstitial lung disease) ([facility]); Franklin filter in place; Recurrent deep vein thrombosis (DVT) of both lower extremities ([facility]); History of pulmonary embolus (PE); Restless legs syndrome; Primary osteoarthritis of both knees; Anxiety state Allergies Active Allergy Reactions Severity [...] as of this encounter (statuses as of 09/13/2022) Medications Medication Sig Dispensed Refills Start Date [...] goal of 7.0%-8.0% ([facility]) Inject 40 units with meals [...] hemoglobin A1c goal of less than 8.0% ([facility]) Take 1 Tablet (500 mg) [...] OTHER MEDS 100 Tablet 1 08/31/2022 Active Cephalexin 500 MG Oral CapsuleIndications: Cellulitis of left lower extremity Take 1 Capsule (500 mg) by mouth in the morning and 1 Capsule (500 mg) at noon and 1 Capsule (500 mg) before bedtime. Do all this for 10 days. 30 Capsule 0 09/06/2022 2 Active Additional Information Patient taking differently:500 mg OralBID(AM/PM), Reported on 09/13/2022 Furosemide 40 MG Oral Tablet (Lasix)Indications: Chronic [...] before bedtime. 60 Tablet 0 09/13/2022 Active Nortriptyline HCl 25 MG Oral Capsule (Pamelor)Indication s:Moderate episode of recurrent major depressive disorder (HCC),Fibromyalgia Take 1 Capsule (25 mg) by mouth at bedtime. 30 Capsule 3 09/02/2022 2 Discontinu ed(Medicat ion/Dose Changed) clonazePAM 0.5 MG Oral Tablet (KlonoPIN)Indicatio ns:Anxiety state Take 1 Tablet (0.5 mg) by mouth in the morning and 1 Tablet (0.5 mg) before bedtime. 60 Tablet 0 09/06/2022 2 Discontinu ed(Refill) documented as of this encounter (statuses as of 09/13/2022) Active Problems Problem Noted Date ILD (interstitial [...] thrombocytopenia (HIT) 0 12/31/2021 Atherosclerosis of lower sioux coronary arter 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 [...] as of this encounter (statuses as of 09/13/2022) Resolved Problems Problem Noted Date Resolved Date [...] as of this encounter (statuses as of 09/13/2022) Immunizations Name Administration Dates Next Due COVID-19 mRNA, LNP-s, No Pre serve, 2-Dose Series (So1) 01/08/2021,12/18/2020 COVID-19, LNP-s, No Preserve , Navarro-sucrose, Ages 12+ (Pfizer) 2022,10/01/2021 Pneumococcal Conjugate Vacci ne, 20-valent ([id number]) 03/12/2022 Pneumococcal Polysaccharide PPV23 (Pneumovax) 08/22/2009,06/15/2006 Seasonal [...] Sign Reading Time Taken Comments Blood Pressure 132/70 09/13/2022 12:59 PM EST Pulse 97 09/13/2022 12:59 PM EST Temperature 36.4 C (97.6 F) 09/13/2022 12:[address] Respiratory Rate - - Oxygen Saturation 95% 09/13/2022 12:59 PM EST Inhaled Oxygen Concentration - - Weight 143 kg (315 lb 4.8 oz) 09/13/2022 12:59 P M EST Height 165.1 cm (5' 5") 09/13/2022 12:59 PM EST Body Mass Index 52.47 09/13/2022 12:59 PM EST documented in this encounter Progress Notes * Galdino Andujar, - 09/13/2022 1:22 PM EST SUBJECTIVE: Stephanie Camp is a 67 year old female. Chief Complaint Patient presents with Follow Up HPI: Patient is a 67 year old female with a history of DM type II, CKD stage III, Diastolic CHF, chronichypoxic respiratory failure, HTN, recurrent DVT, IVC filter, Hyperlipidemia, statin intolerance, GERD, lumbar disc disease, restless leg syndrome, Sleep Apnea on CPAP, Heparin Induced thrombocytopenia, and Ambulatory Dysfunction that is seen for follow up. [facility] following with [facility]. Furosemide was increased due to worsening leg edema. She is also being treated for right leg cellulitis. No chest pain is present. Chronic shortness of breath is stable. Right leg pain and redness is improving. Leg swelling has improved. No worsening pain, depression or insomnia with decrease in Nortriptyline dose. Patient Active Problem List Diagnosis Code Dyslipidemia E78.5 Postsurgical hypothyroidism E89.0 ELISSA (obstructive sleep apnea) G47.33 Venous insufficiency I87.2 Essential hypertension with goal blood pressure less than 140/90 I10 History of pulmonary embolus (PE) Z86.711 Statin intolerance Z78.[address] Z95.828 Fibromyalgia M79.7 Abnormality of gait R26.9 Restless legs syndrome G25.81 Gastroesophageal reflux disease with esophagitis K21.00 Morbid obesity with BMI of 50.0-59.9, adult ([facility]) E66.01, Z68.43 Controlled substance agreement signed Z79.899 Chronic diastolic congestive heart failure ([facility]) I50.32 Lumbar radiculopathy M54.16 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 iqpin4d chronic kidney disease ([facility]) I13.0, I50.32, N18.32 Hyperparathyroidism, secondary renal ([facility]) N25.81 Vasculitis ([facility]) I77.6 Primary osteoarthritis of left knee M17.12 Spinal stenosis of lumbar region without neurogenic claudication M48.061 Heparin 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) D75.829 Atherosclerosis of lower sioux coronary arter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 I25.10 Carotid artery stenosis, asymptomatic, right I65.21 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 Encounter for long-term (current) use of other medications Z79.899 Type 2 diabetes mellitus with stage 3b chronic kidney disease ([facility]) E11.22, N18.32 Type 2 diabetes mellitus with hemoglobin A1c goal of less than 8.0% ([facility]) E11.9 Recurrent deep vein thrombosis (DVT) of both lower extremities ([facility]) I82.403 Chronic hypoxemic respiratory failure ([facility]) J96.11 Chronic kidney disease, stage 3b ([facility]) N18.32 ILD (interstitial lung disease) ([facility]) J84.9 Moderate episode of recurrent major depressive disorder ([facility]) F33.1 Primary osteoarthritis of both knees M17.0 Current Outpatient Medications Medication Sig Dispense Refill [...] by mouth at bedtime. 60 Capsule 5 Magnesium Oxide 400 MG [...] 1 Tablet before bedtime. 60 Tablet 5 traZODone HCl 50 MG Oral Tablet (Desyrel) [...] BREAKFAST OR OTHER MEDS 100 Tablet 1 Cephalexin 500 MG Oral Capsule Take 1 Capsule (500 mg) by mouth in the morning and 1 Capsule (500 mg) at noon and 1 Capsule (500 mg) before bedtime. Do all this for 10 days. (Patient taking differently: Take 1 Capsule by mouth in the morning and 1 Capsule before bedtime.) 30 Capsule 0 Furosemide 40 MG Oral Tablet (Lasix) Take 1.5 Tablets (60 mg) by mouth in the morning and 1.5 Tablets (60 mg) before bedtime. May take 120 mg twice a day for three days when instructed. 120 Tablet 1 clonazePAM 0.5 MG Oral Tablet (KlonoPIN) Take 1 Tablet by mouth in the morning and 1 Tablet before bedtime. 60 Tablet 0 [employer] DELICA LANCETS 33G [facility] Check blood sugars 3-4 times daily 180 [...] History: Diagnosis Date ELSIE (acute kidney injury) ([facility]) 06/12/2018 Allergic rhinitis due to other allergen Chronic hypoxemic respiratory failure ([facility]) 01/07/2022 Diverticulosis of colon 01/28/2006 Essential hypertension with goal blood pressure less than 140/90 02/22/2014 ELLIE (generalized anxiety disorder) 09/13/2009 Goiter Franklin filter in place 08/19/2014 Heparin-induced thrombocytopenia 08/22/2009 History of pulmonary embolus (PE) 07/16/2014 HTN, goal below 140/90 Impetigo 09/27/2018 Obesity, BMI not known Perforation of intestine ([facility]) 1996 COLON -- 1996 Pneumonia in aspergillosis(484.6) 09/14/2009 Recurrent deep vein thrombosis (DVT) of both lower extremities ([facility]) 01/07/2022 Sleep apnea, obstructive Spinal stenosis of lumbar region without neurogenic claudication 07/15/2020 Spontaneous pneumothorax 09/14/2009 Statin intolerance 07/16/2014 Type 2 diabetes mellitus with hemoglobin A1c goal of less than 8.0% ([facility]) 01/07/2022 Past Surgical History: Procedure Laterality Date ARTHROPLASTY KNEE TOTAL Right 07/24/14 R COLONOSCOPY, DIAGNOSTIC (RECTUM) 02/18/2016 normal, repeat 10 yrs/[facility] COLONOSCOPY, GI REFERRAL OP 01/28/06 diverticulosis--repeat 10 years INCISION OF WIN[place], PLANNED 06/03/2011 TRACHEOSTOMY PLANNED performed by DANNY HOLDER at OR [facility] [place] INJECT DX/THER SUBSTANCE INTERLAMINAR LUMBAR/SACRAL W IMAGE GUIDE 05/26/2020 INJECTION SPINE LUMBAR OR SACRAL performed by Raj Ahn DO at OR [facility] [address] INJECT DX/THER SUBSTANCE INTERLAMINAR LUMBAR/SACRAL W IMAGE GUIDE 05/14/2021 INJECTION SPINE LUMBAR OR SACRAL performed by Raj Ahn, DO at OR [facility] [address] INJECT DX/THER SUBSTANCE INTERLAMINAR LUMBAR/SACRAL W IMAGE GUIDE 08/13/2021 INJECTION SPINE LUMBAR OR SACRAL performed by Raj Ahn DO at OR [facility] [address] KNEE ARTHROSCOPY/DEBRIDEMENT 07/[address] PERMANENT GASTROSTOMY TUBE 09/06/09 GASTROSTOMY WITH CONSTUCTION GASTRIC TUBE performed by AMADOU NUNEZ at [facility] REMOVAL OF THYROID GLAND 06/15/2011 THYROIDECTOMY INCLUDING SUBSTERNAL THYROID CERVICAL APPROACH performed by DANNY HOLDER at OR [facility] [place] REMOVE GALLBLADDER 09/06/09 CHOLECYSTECTOMY performed by AMADOU NUNEZ at [facility] REPAIR RECURRENT INCISIONAL HERNIA 1998 REVISION OF COLOSTOMY, SIMPLE 1998 SACROILIAC JOINT INJECT W/GUIDANCE 07/28/2020 INJECTION SACROILIAC JOINT performed by Raj Ahn DO at OR [facility] [address] SACROILIAC JOINT INJECT W/GUIDANCE 03/03/2022 INJECTION SACROILIAC JOINT performed by Raj Ahn DO at OR [facility] [address] SUTURE, LARGE INTESTINE W/COLOSTOMY 1996 perforation R [...] chest pain and palpitations. Gastrointestinal: Positive for nausea. Negative for abdominal pain, blood in stool, diarrhea and vomiting. Genitourinary: Negative for dysuria and hematuria. Musculoskeletal: Positive for arthralgias, back pain and gait problem. Neurological: Negative for dizziness, syncope and headaches. OBJECTIVE: BP 132/70 (BP Site: Left Arm) | Pulse 97 | Temp 36.4 C (97.6 F) | Ht 1.651 m (5' 5") | Wt (!) 143 kg (315 lb 4.8 oz) | LMP 03/11/2003 | SpO2 95% | BMI 52.47 kg/m | BSA 2.56 m Physical Exam Vitals reviewed. Constitutional: General: She [...] There is no abdominal tenderness. Musculoskeletal: Comments: Right > left chronic leg edema Skin: Comments: Small area of erythema on right anterior fuentes Neurological: Mental Status: She is alert and oriented to person, place, and time. Mental status is at baseline. Motor: No weakness. Psychiatric: Mood and Affect: Mood normal. Behavior: Behavior normal. Thought Content: Thought content normal. PLAN AND ASSESSMENT: 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 3b chronic kidney disease (HCC) (Primary) - COMPREHENSIVE METABOLIC PANEL; Future; Expected date: 09/13/2022 Continue Furosemide 60 mg two times a day Type 2 diabetes mellitus with stage 3b chronic kidney disease, with long-term current use of insulin ([facility]) Continue Metformin, Tresiba, Novolog and Trulicity Atherosclerosis of lower sioux coronary artery of lower sioux heart without angina pectoris Spinal stenosis of lumbar region without neurogenic claudication Continue Oxycodone, Acetaminophen, Baclofen , and Gabapentin Gastroesophageal reflux disease with esophagitis without hemorrhage Continue Omeprazole Fibromyalgia Continue Duloxetine Postsurgical hypothyroidism Continue Levothyroxine Statin intolerance Moderate episode of recurrent major depressive disorder (HCC) Cellulitis of right lower extremity Finish Cephalexin as directed Chronic hypoxemic respiratory failure ([facility]) ILD (interstitial lung disease) ([facility]) Frank filter in place Recurrent deep vein thrombosis (DVT) of both lower extremities ([facility]) Continue Apixaban History of pulmonary embolus (PE) Restless legs syndrome - clonazePAM 0.5 MG Oral Tablet (KlonoPIN); Take 1 Tablet by mouth in the morning and 1 Tablet before bedtime. Primary osteoarthritis of both knees Anxiety state - clonazePAM 0.5 MG Oral Tablet (KlonoPIN); Take 1 Tablet by mouth in the morning and 1 Tablet before bedtime. Follow Up: Return in about 2 weeks (around 09/27/2022), or if symptoms worsen or fail to improve. Galdino Andujar DO 1:25 PM 09/13/2022 documented in this encounter Nursing Notes * Chasity Del Toro LPN - 09/13/2022 12:52 PM EST A week ago today, [facility] came to visit. Patient not feeling well, had a lot of fluid in her legs. Dx with cellulitis, put on Keflex but taking 2 tablets daily instead of the 4 as prescribed due to not feeling well on it. Reports swelling and pain is much better, redness decreased. documented in this encounter Plan of Treatment Upcoming Encounters Date Type Specialty Care Team Description 09/15/2022 Imaging Radiology 09/16/[address] [facility], Nurse Fam Prac [address] [place] [address] 09/21/2022 Home Visit [facility] Brooke Jose RN [address] [place] [address] 09/29/[address] [facility], Nurse Mcrae Prac [address] [place] [address] 01/19/2023 PulmDiagnostic Pulmonary Function [place], [address] [facility] [place] [address] 08/08/2023 Nurse Only [facility], Nurse Annual Wellness Visit [address] [place] [address] Scheduled Orders Name Type Priority Associated Diagnoses Orde r Schedule COMPREHENSIVE METABOLIC PANEL Lab Routine 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 3b chronic kidney disease (HCC) Expected: 09/13/2022 (Approximate), Expires: 09/13/2023 Scheduled Procedures Name Priority Associated Diagnoses Date/Ti [...] Additional history exists CKD PHOS USE SMARTSET 35490 01/07/202312/25, 03/12/2021, 11/17/2020, Additional history exists DIABETES-FOOT EXAM 01/07/2023 01/07/2022, 0 01/14/2021, 11/07/2019, Additional history exists TSH FOR THYROID MEDICATION MONITORING YEARLY 01/07/2023 01/07/2022, 12/25/2020, 05/06/2020, Additional history exists GFR - Renal Function 02/10/2023 08/13/2022, 07/02/2022, 06/18/2022, Additional history exists DIABETES-EYE EXAM 05/24/2023 05/24/2022, , 04/07/2020, Additional history exists CKD HGB USE SMARTSET 75556 06/29/202306/29, 06/29/2022, 01/07/2022, Additional history exists Mammogram 02/12/2024 02/11/2022, 01/0 02/2021, 07/10/2019, Additional [...] with long-term current use of insulin (HCC) Atherosclerosis of lower sioux coronary artery of lower sioux heart without angina pectoris Spinal stenosis of lumbar region without neurogenic claudication Spinal stenosis, lumbar region, without neurogenic claudication Gastroesophageal reflux disease with esophagitis without hemorrhage Fibromyalgia Mylagia and myositis, unspecified Postsurgical hypothyroidism Statin intolerance Other drug allergy Moderate episode of recurrent major depressive disorder (HCC) Cellulitis of right lower extremity Cellulitis and abscess of leg, except foot Chronic hypoxemic respiratory failure (HCC) Chronic respiratory failure ILD (interstitial lung disease) (HCC) Postinflammatory pulmonary fibrosis Frank filter in place Other postprocedural status Recurrent deep vein thrombosis (DVT) of both lower extremities (HCC) History of pulmonary embolus (PE) Personal history of pulmonary embolism Restless legs syndrome Restless legs syndrome (RLS) Primary osteoarthritis of both knees Primary localized osteoarthrosis, lower leg Anxiety state Anxiety state, unspecified documented in this encounter Advance Directives Documents on File Type Date Recorded Patient Claims Collector Expl anation POLST 03/19/2020 4:25 PM POLST [...] the patient have Health Care Power of Cycle Repairer? No Healthcare Agents on File Name Relationship Healthcare Agent Relationship Communication Galdino Cmap Other - (no specific identity) Health Care Power of Cycle Repairer Princess Allen Other - (no specific identity) Health Care Power of Cycle Repairer Care Teams Book Retailer Relationship Specialty Start Date End Date Galdino Andujar, DO [address] [facility] [place] [address] PCP - General Internal Medicine 01/07/22 documented as of this encounter
--- OUTSIDE RECORDS SUMMARY | 2023-06-01 04:23 | External Medical Summary | Summary of Care ---
Author Name Unknown Organization [place] [address] Care Team Providers Care Supervisor Powder [employer] Canning Name Role Phone Galdino Andujar DO Primary Care Provider [phone] Reason for Visit * Reason Comments Dosage Adjustment In Person (Anticoag Cl inic) Diabetes Encounter Details Date Type Department Care Team Description 09/13/2022 Office Visit Family Practice 65 [facility] [address] [place] [id number] [place], Pharmacist [address] [address] Type 2 diabetes mellitus with hemoglobin A1c goal of less than 8.0% ([facility])* Allergies Active Allergy Reactions Severity Noted Date [...] lpm continuous 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:Maritime Officer 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 Do all this for 10 days. 30 Capsule 0 09/06/2022 2 Active Additional Information Patient taking differently:500 mg OralBID(AM/PM), Reported on 09/13/2022 Furosemide 40 MG Oral Tablet (Lasix)Indications:C hronic [...] 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/31/2021 Atherosclerosis of [place] coronary arter 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 12/31/2021 [...] percocet BID prn. Abnormality of gait 02/02/[address] [place] filter in [address] 08/19/2014 History of pulmonary [...] mRNA, LNP-s, No Pre serve, 2-Dose Series (Split) 01/08/2021,12/18/2020 COVID-19, LNP-s, No Preserve , Navarro-sucrose, Ages 12+ (Pfizer) 2022,10/01/2021 Pneumococcal Conjugate Vacci ne, 20-valent ([id number]) 03/12/2022 Pneumococcal Polysaccharide PPV23 (Pneumovax) 08/22/2009,06/15/2006 Seasonal [...] this encounter Progress Notes * Aliya Cleaning, [facility] - 09/13/2022 1:30 PM EST Medication Therapy Disease Management [facility] - Diabetes Management Progress Note Stephanie Camp, identified by name and date of , is a 67 year old female being seen for diabetes management/education. Patient presents for return diabetic visit. DIABETES: Current diabetic medications: Novolog - 40 units withbreakfast/lunch and 45 units with supper+SS 1:25 >150 Tresiba 60 units atbedtime Trulicity 4.5 mg weekly- Tuesday mornings Metformin ER 500 mg 1 tablet daily eGFR 37mL/min 08/13/22 Medication Injection Site: Abdomen Lifestyle: Diet: hasn't had appetite due to antibiotics and doesn't feel like eating Glucose Review/SMBG: not available, per patient recall: 180 this morning AM avs 87-370 in last 2 weeks 370 was after [employer] party Hypoglycemia: Does your blood sugar go below 70 mg/dL? No Hyperglycemia symptoms present: none Recent Labs Units 05/12/22 1504 01/07/22 1156 11/17/20 1300 HEMOGLOBIN A1C - [facility] % 7.6* 7.8* 8.3* Recent Labs Units 08/13/22 0902 07/02/22 1511 06/18/22 1521 ESTIMATED GLOMERULAR FILTRATION RATE - [facility] mL/min 37* 38* 43* CREATININE - [facility] mg/dL 1.5* 1.5* 1.4* HYPERTENSION: Patient on ACEi/ARB: no, not indicated BP Readings from Last 3 Encounters: 09/13/22 132/70 09/06/22 130/60 08/30/22 (P) 138/84 Blood pressure at goal: yes HYPERLIPIDEMIA: Patient is taking moderate or high intensity statin: No, statin intolerant The ASCVD Risk score (Marylu FRANK, et al., 2019) failed to calculate for the following reasons: The patient has a prior DC or stroke diagnosis Recent Labs Units 07/02/22 1511 LDL CHOLESTEROL (CALCULATED) - [facility] mg/dL 120 HEALTH MAINTENANCE REVIEW: Health Maintenance Due Topic Date Due COVID-19 Vaccine (5 - Booster for Pfizer series) 06/08/2022 Depression, Most Recent Score >= 10 (will fire each visit until score < 10) 08/31/2022 ASSESSMENT & PLAN: ICD-10-CM 1. Type 2 diabetes mellitus with hemoglobin A1c goal of less than 8.0% (HCC) E11.9 History of Treatment Barriers: Therapy considerations: Renal Function and Cost Medication: jardiance: CHRIST yeast infections/UTIs Medication: statins - intolerant BG Readings - Blood sugars not available. Patient received Dexcom sensors from [facility], but did not receive a transmitter. Patient has been doing fingersticks to check blood sugar 3 times daily but did not bring in any readings. Patient denies any signs or symptoms of hypoglycemia. Medications - Reviewed current regimen, patient is adherent to regimen. Will continue current regimen until we get readings or Dexcom data. Diet, Exercise, Lifestyle - No significant lifestyle changes since last visit. Discussed with patient being careful with food choices around the holidays. Patient is agreeable to SMBG 3 times daily until receives Dexcom. Patient aware to contact clinic if any hypoglycemia before next visit. Called [facility] and they will be sending a transmitter on 09/15/22. MEDICATION CHANGES: no change Diabetic Medications: Novolog - 40 units withbreakfast/lunch and 45 units with supper+SS 1:25 >150 Tresiba 60 units atbedtime Trulicity 4.5 mg weekly- Tuesday mornings Metformin ER 500 mg 1 tablet daily eGFR 37mL/min 08/13/22 HEALTH MAINTENANCE INTERVENTIONS: Labs: Up to Date Immunizations: Due for covid booster Foot Exam: Up to Date Eye Exam: Up to Date Annual Wellness Visit: Up to Date FOLLOW UP: Return to clinic in 2-3 weeks Aliya Cleaning [facility] Clinical Pharmacist - Train [employer] Medication Therapy Management Clinic 09/10/2022, 4:15 PM documented in this encounter Plan of Treatment Upcoming Encounters Date Type Specialty Care Team Description 09/15/2022 Imaging Radiology 09/16[facility] [address] [place] [address] 09/21/2022 [facility] [address] 09/29/2022 [facility] 65 [facility] 293 [facility] [place] [address] 09/29/2022 Office Visit [facility] Galdino Andujar DO [address] [place] [address] 10/04/2022 Office Visit [facility], Pharmacist 65 [facility] [address] [facility], [place] [address] 01/19/2023 PulmDiagnostic Pulmonary Function [place], Pft [address] [place] [address] 08/08/2023 Nurse Only [facility], Nurse Annual Wellness Visit [address] [facility] [address] [facility] [address] Scheduled Procedures Name Priority Associated Diagnoses Date/Ti [...] Additional history exists CKD PHOS USE SMARTSET 06998 01/07/202312/25, 03/12/2021, 11/17/2020, Additional history exists DIABETES-FOOT EXAM 01/07/2023 01/07/2022, 0 01/14/2021, 11/07/2019, Additional history exists TSH FOR THYROID MEDICATION MONITORING YEARLY 01/07/2023 01/07/2022, 12/25/2020, 05/06/2020, Additional history exists GFR - Renal Function 02/10/2023 08/13/2022, 07/02/2022, 06/18/2022, Additional history exists DIABETES-EYE EXAM 05/24/2023 05/24/2022, , 04/07/2020, Additional history exists CKD HGB USE SMARTSET 96812 06/29/202306/29, 06/29/2022, 01/07/2022, Additional history exists Mammogram [...] hemoglobin A1c goal of less than 8.0% (HCC)- Primary documented in this encounter Advance Directives Documents on File Type Date Recorded Patient Teacher Of Family And Consumer Science Expl anation POLST 03/19/2020 4:25 PM POLST [...] the patient have Health Care Power of Lease Picker? No Healthcare Agents on File Name Relationship Healthcare Agent Relationship Communication Galdino Camp Other - (no specific identity) Health Care Power of Lease Picker Princess Other - (no specific identity) Health Care Power of Lease Picker Care Teams Supervisor [employer] Canning Relationship Specialty Start Date End Date Galdino Andujar, DO [address] [place] [address] PCP - General Internal Medicine 01/07/22 documented as of this encounter
--- OUTSIDE RECORDS SUMMARY | 2023-06-01 04:23 | External Medical Summary | Summary of Care ---
Author Name Unknown Organization [place] [address] Care Team Providers Care Press Machine Feeder Name Role Phone Galdino Andujar DO Primary Care Provider [phone] Reason for Visit * Reason Comments Follow Up Encounter Details Date Type Department Care Team Description 09/13/2022 Office Visit Family Practice [address], [place] [address] [place] [address] Galdino Andujar DO [address] [place] [address] 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 3b chronic kidney disease ([facility])*; Type 2 diabetes mellitus with stage 3b chronic kidney disease, with long-term current use of insulin ([facility]); Atherosclerosis of [place] coronary artery of [place] heart without angina pectoris; Spinal stenosis of lumbar region without neurogenic claudication; Gastroesophageal reflux disease with esophagitis without hemorrhage; Fibromyalgia; Postsurgical hypothyroidism; Statin intolerance; Moderate episode of recurrent major depressive disorder ([facility]); Cellulitis of right lower extremity; Chronic hypoxemic respiratory failure ([facility]); ILD (interstitial lung disease) ([facility]); Lowman filter in place; Recurrent deep vein thrombosis (DVT) of both lower extremities ([facility]); History of pulmonary embolus [...] 7.0%-8.0% ([facility]) Inject 40 units with meals + sliding scale 1 units for every 25 units BG > 150. 121 mL 3 11/04/2021 Active Tresiba FlexTouch 100 UNIT/ML Subcutaneous Solution Pen-injector (Insulin Degludec)Indication s:Type 2 diabetes mellitus with hemoglobin A1c goal of 7.0%-8.0% ([facility]) INJECT 60 UNITS UNDER [...] 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/31/2021 Atherosclerosis of [place] coronary arter 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 12/31/2021 [...] mRNA, LNP-s, No Pre serve, 2-Dose Series (Guarnic) 01/08/2021,12/18/2020 COVID-19, LNP-s, No Preserve , Navarro-sucrose, Ages 12+ (Pfizer) 2022,10/01/2021 Pneumococcal Conjugate Vacci ne, 20-valent ([id number]) 03/12/2022 Pneumococcal Polysaccharide PPV23 (Pneumovax) 08/22/2009,06/15/2006 Seasonal [...] pulmonary embolus (PE) Z86.711 Statin intolerance Z78.[address] Z95.828 Fibromyalgia M79.7 Abnormality of gait R26.9 Restless legs syndrome G25.81 Gastroesophageal reflux disease with esophagitis K21.00 Morbid obesity with BMI of 50.0-59.9, adult ([facility]) E66.01, Z68.43 Controlled substance agreement signed Z79.899 Chronic diastolic congestive heart failure ([facility]) I50.32 Lumbar radiculopathy M54.16 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 vceoi2f chronic kidney disease ([facility]) I13.0, I50.32, N18.32 Hyperparathyroidism, secondary renal ([facility]) N25.81 Vasculitis ([facility]) I77.6 Primary osteoarthritis of left knee M17.12 Spinal stenosis of lumbar region without neurogenic claudication M48.061 Heparin 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) D75.829 Atherosclerosis of [place] coronary arter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 I25.10 Carotid artery stenosis, asymptomatic, right I65.21 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 60 Tablet 0 [employer] DELICA LANCETS 33G [facility] [place] Check blood sugars 3-4 [...] 02/22/2014 ELLIE (generalized anxiety disorder) 09/13/2009 Goiter [place] filter in place 08/19/2014 Heparin-induced thrombocytopenia 08/22/2009 [...] COLONOSCOPY, DIAGNOSTIC (RECTUM) 02/18/2016 normal, repeat 10 yrs/[facility] COLONOSCOPY, GI REFERRAL OP 01/28/06 diverticulosis--repeat 10 years INCISION OF [place], PLANNED 06/03/2011 TRACHEOSTOMY PLANNED performed by DANNY HOLDER at [place] [facility] INJECT DX/THER SUBSTANCE INTERLAMINAR LUMBAR/SACRAL W IMAGE GUIDE 05/26/2020 INJECTION SPINE LUMBAR OR SACRAL performed by Raj Ahn DO at OR [facility] INJECT DX/THER SUBSTANCE INTERLAMINAR LUMBAR/SACRAL W IMAGE GUIDE 05/14/2021 INJECTION SPINE LUMBAR OR SACRAL performed by Raj Ahn, DO at OR [facility] INJECT DX/THER SUBSTANCE INTERLAMINAR LUMBAR/SACRAL W IMAGE GUIDE 08/13/2021 INJECTION SPINE LUMBAR OR SACRAL performed by Raj Ahn DO at OR [facility] KNEE ARTHROSCOPY/DEBRIDEMENT 07/[address] PERMANENT GASTROSTOMY TUBE 09/06/09 GASTROSTOMY WITH CONSTUCTION GASTRIC TUBE performed by AMADOU NUNEZ at [facility] REMOVAL OF THYROID GLAND 06/15/2011 THYROIDECTOMY INCLUDING SUBSTERNAL THYROID CERVICAL APPROACH performed by DANNY HOLDER at [place] [facility] REMOVE GALLBLADDER 09/06/09 CHOLECYSTECTOMY performed by AMADOU NUNEZ at [facility] REPAIR RECURRENT INCISIONAL HERNIA 1998 REVISION OF COLOSTOMY, SIMPLE 1998 SACROILIAC JOINT INJECT W/GUIDANCE 07/28/2020 INJECTION SACROILIAC JOINT performed by Raj Ahn DO at OR [facility] SACROILIAC JOINT INJECT W/GUIDANCE 03/03/2022 INJECTION SACROILIAC JOINT performed by Raj Ahn DO at OR [facility] SUTURE, LARGE INTESTINE W/COLOSTOMY 1996 perforation R colon with colostomy VENA CAVA FILTER/LIGATION/CLIP 08/19/09 Frank filter placement through the right femoral 08/19/[address] Lerma at [facility] Review of patient's allergies indicates: [...] with long-term current use of insulin ([facility]) Continue Metformin, Tresiba, Novolog and Trulicity Atherosclerosis of [place] coronary artery of [place] heart without angina pectoris Spinal stenosis of lumbar region without neurogenic claudication Continue Oxycodone, Acetaminophen, Baclofen , and Gabapentin Gastroesophageal reflux disease with esophagitis without hemorrhage Continue Omeprazole Fibromyalgia Continue Duloxetine Postsurgical hypothyroidism Continue Levothyroxine Statin intolerance Moderate episode of recurrent major depressive disorder (HCC) Cellulitis of right lower extremity Finish Cephalexin as directed Chronic hypoxemic respiratory failure ([facility]) ILD (interstitial lung disease) ([facility]) Frank filter in place Recurrent deep vein thrombosis (DVT) of both lower extremities ([facility]) Continue Apixaban History of pulmonary [...] Description 09/15/2022 Imaging Radiology 09/16/2022 Scheduled Telephone [facility], Nurse Fam Prac [address], [place] [address] 09/21/2022 Home Visit [facility]oke Jose [facility] [address] 09/29/2022 Scheduled Telephone [facility], Nurse Fam Prac [address], [place] [address] 09/29/2022 Office Visit [facility] Galdino Andujar DO [facility] [address] 01/19/2023 PulmDiagnostic Pulmonary Function [facility], Pft 132 [facility] [place] [address] 08/08/2023 Nurse Only [facility], Nurse Annual Wellness Visit [address] [address] Scheduled Orders Name Type Priority Associated Diagnoses [...] Additional history exists CKD PHOS USE SMARTSET 57849 01/07/202312/25, 03/12/2021, 11/17/2020, Additional history exists DIABETES-FOOT EXAM 01/07/2023 01/07/2022, 0 01/14/2021, 11/07/2019, Additional history exists TSH FOR THYROID MEDICATION MONITORING YEARLY 01/07/2023 01/07/2022, 12/25/2020, 05/06/2020, Additional history exists GFR - Renal Function 02/10/2023 08/13/2022, 07/02/2022, 06/18/2022, Additional history exists DIABETES-EYE EXAM 05/24/2023 05/24/2022, , 04/07/2020, Additional history exists CKD HGB USE SMARTSET 92527 06/29/202306/29, 06/29/2022, 01/07/2022, Additional history exists Mammogram [...] current use of insulin (HCC) Atherosclerosis of [place] coronary artery of [place] heart without angina pectoris Spinal stenosis of [...] Documents on File Type Date Recorded Patient Hunter Guide Expl anation POLST 03/19/2020 4:25 PM POLST [...] the patient have Health Care Power of Checkout Operator? No Healthcare Agents on File Name Relationship Healthcare Agent Relationship Communication Galdino Camp Other - (no specific identity) Health Care Power of Checkout Operator Princess Allen Other - (no specific identity) Health Care Power of Checkout Operator Care Teams Press Machine Feeder Relationship Specialty Start Date End Date Galdino Andujar, DO [address] [place] [address] PCP - General Internal Medicine 01/07/22 documented as of this encounter
--- OUTSIDE RECORDS SUMMARY | 2023-06-01 04:23 | External Medical Summary | Summary of Care ---
Author Name Unknown Organization [place] [address] Care Team Providers Care Echocardiography Technologist Name Role Phone Galdino Andujar DO Primary Care Provider [phone] Reason for Visit * Reason Onset Date Comments [facility]: Acute 09/06/2022 Encounter Details Date Type Department Care Team Description 09/06/2022 Telephone [facility], [facility] [address] [facility] [place] [address] [facility], Nurse [address] [place] [address] [facility]: Acute Allergies Active Allergy [...] as of this encounter (statuses as of 09/06/2022) Medications Medication Sig Dispensed Refills Start Date End Date Status VALENTINATOUCH DELICA LANCETS 33G MISC Check blood sugars 3-4 times daily 180 Each 5 08/01/2018 Active oxygen GASIndications:ELISSA (obstructive sleep apnea) 2 lpm continuous 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:Chr onic diastolic congestive heart failure (HCC) If no improvement on day 3, contact heart failure managing provider. 1 Each 0 04/08/2020 Active Blood Glucose Monitoring Suppl (PaymoTOUCH ULTRA 2) w/Device KIT Use to test [...] A1c goal of 7.0%-8.0% ([facility]) Inject 40 units with meals + sliding scale 1 units for every 25 units BG > 150. 121 mL 3 11/04/2021 Active Tresiba FlexTouch 100 UNIT/ML Subcutaneous Solution Pen-injector (Insulin Degludec)Indication s:Type 2 diabetes mellitus with hemoglobin A1c goal of 7.0%-8.0% ([facility]) INJECT 60 UNITS UNDER THE [...] Pain, Severe. 60 Tablet 0 07/26/2022 Active clonazePAM 0.5 MG Oral Tablet (KlonoPIN)Indicatio ns:Anxiety state Take 1 Tablet (0.5 mg) by mouth in the morning and 1 Tablet (0.5 mg) before bedtime. 60 Tablet 0 08/10/2022 Active Apixaban 5 MG Oral Tablet (Eliquis) [...] 09/02/2022 Active Baclofen 5 MG Oral Tablet (Lioresal)Indicatio [...] when instructed. 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 Abnormality of gait 02/02/[address] [place] [address] 08/19/2014 History of pulmonary [...] as of this encounter (statuses as of 09/06/2022) Resolved Problems Problem Noted Date Resolved Date [...] as of this encounter (statuses as of 09/06/2022) Immunizations Name Administration Dates Next Due COVID-19 mRNA, LNP-s, No Pre serve, 2-Dose Series (LiveRe) 01/08/2021,12/18/2020 COVID-19, LNP-s, No Preserve , Navarro-sucrose, Ages 12+ (Pfizer) 2022,10/01/2021 Pneumococcal Conjugate Vacci ne, 20-valent ([id number]) 03/12/2022 Pneumococcal Polysaccharide PPV23 (Pneumovax) 08/22/2009,06/15/2006 Seasonal [...] encounter Miscellaneous Notes * Telephone Encounter - Don Cui MD - 09/06/2022 12:30 PM EST [facility] Phone Encounter Background information: Increased bloating and shortness of breath Patient called intake this am complaining of dyspnea with cough that started in am. Weight gain of 5 lbs Exam Bilateral crackles at the basis + burning and itching with urination since yesterday + abdominal cramping pre and post voiding No fevers or chills Increased redness LLE Assessment and Recommendations: ICD-10-CM 1. Cellulitis of left lower extremity L03.116 2. Burning with urination R30.0 3. Chronic diastolic congestive heart failure (HCC) I50.32 Plan Urinalysis, Reflex to Culture (Not for Neutropenic Patients) Cephalexin 500 MG Oral Capsule Furosemide 40 MG Oral Tablet (Lasix) To Do: Follow up phone call tomorrow Don Yancey MD Remote Medical Command - [facility] 09/06/2022 Routed to pt's [facility] Care Team and additional relevant parties as an FYI * Telephone Encounter - Marlena Franco RN - 09/06/2022 10:18 AM EST [facility] human services program specialist Acute Call Date: 09/06/2022 Time: 10:18 AM Name: Stephanie Camp : 1955 Caller: Patient HPI: Stephanie Camp is a 67 year old female that is calling [facility] Intake to report: Symptoms of HF Dyspnea with cough that started this morning. O2 on at 3/min. She cannot locate her pulse Ox machine to check O2 sats. Weight gain of 5 lbs in 2 days Feeling pressure in upper abdomen. Retaining fluid. She has DTP and I advisd she start this: Double dose of Lasix x 3 days. Take extra K+supplement 10 meq. Pt has order for Zaroxolyn but I did not adviser on this. She ate dill pickles and has not been compliant with diet restrictions. She called [employer] but could not get through. She is requesting a nurse visit. Nursing Assessment: Patient's chief complaint for this call: Shortness of breath Other, describe 5 lb weight gain in 2 days Pain Denies pain Baseline Assessment Able to performing ADLs at baseline (walking, daily tasks, etc.): Yes but with AVENDAÑO Chief Complaint is related to a chronic condition:Yes Patient prescribed oxygen? Yes, prescribed 2 l but has increased to 3L/min Patient has been ordered DME equipment (assistive devices, respiratory equipment, etc.): Yes O2, diabetic supplies Medication Reconciliation: Received flu shot this season: Yes Taking medication as ordered: Yes Medications ordered/taking to treat reason for call: Yes, PRN medication(s) Advised to start DTP: DOuble fose of Lasix x 3 days Heart failure symptoms: Yes Is Diuretic Titration Protocol (DTP) ordered? Yes Describe Diuretic Titration Protocol (DTP): Double Lasix dose x 3 days. Pt takes Lasix BID. 40 mg BID. She has Zaroxalyn at home but needs [facility] review prior to initiating. Diuretic Titration Protocol (DTP) activated: Yes, date/time activated 09/05/22 COPD exacerbation symptoms: No Reinforcement Education: DTP O2 at 3l/min Be diligent with sodium restriction for the next 3-4 days Take extra K supplement while taking additional Lasix 10 meq.daily as per order. RN visit today to assess Call back instructions provided to patient. Treatment/Plan: (need to report) Level of call: Acute Appointment scheduled for same day: Yes Brass Wind Instrument Maker Provider Name: Brooke Jose RN he calls scheduled. Marlena Franco RN [facility] Intake Triage Coordinator [phone] documented in this encounter Plan of Treatment Upcoming Encounters Date Type Specialty Care Team Description 09/07/2022 Scheduled Telephone [facility], [address] [place] [address] 09/08/2022 Scheduled Telephone [facility], [place] [address] [facility] [place] [address] 09/13/2022 Office Visit [facility] Galdino Andujar, DO [address] [place] [address] 09/13/2022 Office Visit [facility], Pharmacist [address] [place] [address] 09/21/2022 Home Visit [facility] Brooke Jose RN [address] [facility] [place] [address] 01/19/2023 PulmDiagnostic Pulmonary Function [place], Pft [address] [facility] [place] [address] 08/08/2023 Nurse Only Ancillary [place], Nurse Annual Wellness Visit [address] [place] [address] Scheduled Orders Name Type Priority Associated Diagnoses Orde r Schedule URINALYSIS, REFLEX TO CULTURE (NOT FOR NEUTROPENIC PATIENTS) Lab Routine Burning with urination Expected: 09/06/2022, Expires: 09/06/2023 Scheduled Procedures Name Priority Associated Diagnoses Date/Ti [...] Additional history exists CKD PHOS USE SMARTSET 95390 01/07/2023 04/12/2021, 03/12/2021, 11/17/2020, Additional history exists DIABETES-FOOT EXAM 01/07/2023 01/07/2022, 0 01/14/2021, 11/07/2019, Additional history exists TSH FOR THYROID MEDICATION MONITORING YEARLY 01/07/2023 01/07/2022, 12/25/2020, 05/06/2020, Additional history exists GFR - Renal Function 02/10/2023 08/13/2022, 07/02/2022, 06/18/2022, Additional history exists DIABETES-EYE EXAM 05/24/2023 05/24/2022, , 04/07/2020, Additional history exists CKD HGB USE SMARTSET 28576 06/29/202306/29, 06/29/2022, 01/07/2022, Additional history exists Mammogram [...] as of this encounter Visit Diagnoses Diagnosis Cellulitis of left lower extremity- Primary Cellulitis and abscess of leg, except foot Burning with urination Dysuria Chronic diastolic congestive heart failure (HCC) Chronic diastolic heart failure documented in this encounter Advance Directives Documents on File Type Date Recorded Patient National Sales Director Expl anation POLST 03/19/2020 4:25 PM [...] the patient have Health Care Power of Game Design Instructor? No Healthcare Agents on File Name Relationship Healthcare Agent Relationship Communication Galdino Camp Other - (no specific identity) Health Care Power of Game Design Instructor Princess Other - (no specific identity) Health Care Power of Game Design Instructor Care Teams Echocardiography Technologist Relationship Specialty Start Date End Date Galdino Andujar, DO [address] [place] [address] PCP - General Internal Medicine 01/07/22 documented as of this encounter
--- OUTSIDE RECORDS SUMMARY | 2023-06-01 04:23 | External Medical Summary | Summary of Care ---
Author Name Unknown Organization [place] [address] Care Team Providers Care Parcel Post Truck Driver Name Role Phone ZiaandrewsGaldino DO Primary Care Provider [phone] Reason for Visit * Reason Comments [facility]: Acute Increased sob Encounter Details Date Type Department Care Team Description 09/06/2022 Home Visit [facility], [facility] [address] [facility] [place] [address] [facility] Jose [facility] [address] [facility] [address] Allergies Active Allergy Reactions Severity Noted Date [...] lpm continuous 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:Fruit Express Agent 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 1 Each 0 04/08/2020 Active Blood Glucose Monitoring Suppl (Hansen And SonTOUCH ULTRA 2) w/Device KIT Use to test BG values 1 Kit 0 05/20/2020 Active Acetaminophen 500 MG Oral Tablet Take 500 mg by mouth every 6 hours as needed. 0 Active CPAP every night at bedtime. 0 Active BD Pen Needle Short U/F 31G X 8 MM (Insulin Pen Needle) use five times daily 500 Each 3 11/04/2021 Active TarisaTouch Ultra Blue In Vitro Strip (Glucose Blood) Check sugars 3-4 times daily, E11.9 400 Strip 3 11/04/2021 Active Trulicity 4.5 MG/0.5ML Subcutaneous Solution Pen-injector (Dulaglutide) Inject 1 pen under the skin weekly 6 mL 5 11/03/2021 Active NovoLOG FlexPen 100 UNIT/ML Subcutaneous Solution Pen-injector (insulin aspart)Indications:T ype 2 diabetes mellitus with hemoglobin A1c goal of 7.0%-8.0% ([facility]) Inject 40 units with [...] 07/26/2022 Active clonazePAM 0.5 MG Oral Tablet (KlonoPIN)Indication [...] NYHA class 1 and CKD stage 3 ([facility]),Chronic diastolic congestive heart failure (HCC) Take 1 Capsule (400 mg) by mouth in the morning and 1 Capsule (400 mg) before bedtime. 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/31/2021 Atherosclerosis of [place] coronary arter 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 12/31/2021 [...] mRNA, LNP-s, No Pre serve, 2-Dose Series ([employer]) 01/08/2021,12/18/2020 COVID-19, LNP-s, No Preserve , Navarro-sucrose, Ages 12+ (Pfizer) 2022,10/01/2021 Pneumococcal Conjugate Vacci ne, 20-valent ([id number]) 03/12/2022 Pneumococcal Polysaccharide PPV23 (Pneumovax) 08/22/2009,06/15/2006 Seasonal [...] Reading Time Taken Comments Blood Pressure 130/60 09/06/2022 12:21 PM EST Pulse 90 09/06/2022 12:21 PM EST Temperature 36.3 C (97.3 F) 09/06/2022 12:[address] Respiratory Rate 22 09/06/2022 12:21 PM EST Oxygen Saturation 98% 09/06/2022 12:21 PM EST 3lnc Inhaled Oxygen Concentration - - Weight 142.9 kg (315 lb) 09/06/2022 12:21 PM EST Height - - Body Mass Index 52.42 08/06/2022 2:48 PM EST documented in this encounter Progress Notes * Brooke Jose RN - 09/06/2022 11:42 AM EST Images from the original note were not included. [facility] Data Management AssociateClinical Services Professional Visit Date: 09/06/2022 Time: 11:42 AM Name: Stephanie Camp : 1955 Situation: Increased bloating, sob Background: [facility] Enrollment Date: 06/14/22- Focused Care (3-9 months) PMHx: Frank filter, CHF, CHF, DVT, venous insufficiency, vasculitis, CAD, carotid stenosis, chronic hypoxemic respiratory failure, ELISSA, o2 dependent, GERD, DM, Hx PE, spinal stenosis Utilization: 07/16 - - [facility] Admission - falls, acute on chronic CHF, acute on chronic respiratory failure,cellulitis R hand d/t cat bite 07/29 - 03/17 - [facility] - acute on chronic resp fx with hypoxia, UTI, chronic diastolic HF, d/c home on doxycycline and cefdinir 09/06/22 - Acute [facility] HV - 08/04 and 08/25/22 - scheduled for cataract surgeries Assessment: Per Intake call this morning to Marlena Franco RN: ''Stephanie Camp is a 67 year old female that is calling [facility] Intake to report: Symptoms of [...] get through. She is requesting a nurse visit.'' Sitting on Rolator in kitchen ''I haven't felt good for 3 days'' Increased fluid status, likely start of cellulitis RLE and uti s/s CHF: Dry wt 313lbs Wt today: 315lbs Wt yesterday 319lbs Reports wt was down to 309 last week Crackles b/l bases Increased abdominal bloating, sob No pause to breathe or use of accessory muscles Has increased o2 from 2lnc to 3lnc, has helped B/l le with +2 non-pitting edema R>L Has been eating dill pickles and drinking pickle juice from jar ''I'm addicted to them'' Reviewed label with pt and pt is aware they cause her to retain fluid and increase her risk for hospitalization, verbalized understanding Dry wt changed to 309lbs UTI: Having burning and itching with urination Started yesterday morning Denies hematuria Abdominal cramping pre and post voiding Denies fevers, chills Unable to tell if odor in change d/t poor sense of smell +hx uti's ''every couple months'' POSSIBLE RLE CELLULITIS: Hx cellulitis RLE Increased redness from baseline Warm to touch compared to LLE ''sore and itchy'' as has been in past with cellulitis Above assessment and vs TT to [facility] Role, Dr. Ann Problems/Symptoms: Review of Systems Constitutional: Negative. Eyes: Negative. Respiratory: Positive for shortness of breath (above baseline). Negative for cough. Cardiovascular: Positive for leg swelling. Negative for chest pain and palpitations. Gastrointestinal: Positive for abdominal distention. Endocrine: Negative. Genitourinary: Positive for dysuria. Negative for flank pain and hematuria. Musculoskeletal: Positive for arthralgias, back pain, gait problem and myalgias. Skin: Positive for color change (RLE). Allergic/Immunologic: Negative. Neurological: Positive for weakness. Hematological: Bruises/bleeds easily. Psychiatric/Behavioral: Negative. Physical Exam: BP 130/60 | Pulse 90 | Temp 36.3 C (97.3 F) | Resp 22 | Wt (!) 142.9 kg (315 lb) | LMP 03/11/2003 | SpO2 98% Comment: 3lnc | BMI (P) 52.42 kg/m | BSA (P) 2.56 m Pain 5 Physical Exam Constitutional: Appearance: [...] status is at baseline. Gait: Gait abnormal. [facility] Completed this Visit: Yes. [facility]: Reason Completed: Status post acute event/change in baseline [facility] Interventions: Fall education provided, reviewed/provided Fall brochure Treatment/Plan: Urine culture - collected and taken to [facility] for cellulitis DTP - double dose of lasix x3 days On for calls next two days STOP EATING DILL PICKLES AND DRINKING PICKLE JUICE!! Low salt diet Awaiting arrival of new Dexcom [facility] WT as of 09/06/22 - 309lbs Weigh daily and record Frequent UTI's - typically asymptomatic until has fever, has standing order for urine culture Ambulate with roller walker at ALL times o2 2lnc at rest, 4Lnc with activity - [facility] [phone] WEAR O2 AT ALL TIMES OR BECOMES [...] SI joints Patient's Goals of Care: Get new Dexcom Organize apt Attend building holiday partyu Patient's 'Red Flags': Unable to wear o2 for any reason (leads to falls) Wt increase to 337lbs Increased sob Pt need Dexascan in future Worsening redness in RLE or urinary symptoms as discussed Home Interventions Provided: Oral Medications: Antibiotic, Diuretic Titration Protocol Started and Diuretic Titration Protocol Ordered Labs/Specimen Collection Performed urine culture Lab/Imaging Ordered urine culture Consulted PCP/Specialist Reinforced current Plan of Care, including self-management and medication regimen Patient Needs to Remember: Call [facility] with red flags Referrals Needed: none Follow Up: Is there cellular connectivity/connectivity in the home? Yes Does the patient have internet in the home? Yes Patient encouraged to call the intake phone number for all urgent but not emergent issues. Scheduled to follow up with patient with calls x2 days for f/u. Brooke Jose RN 09/06/2022 11:42 AM documented in this encounter Plan of Treatment Upcoming Encounters Date Type Specialty Care Team Description 09/07/2022 Scheduled Telephone [facility], [facility] [address] [facility] [place] [address] 09/08/2022 Scheduled Telephone [facility], [facility] [address] [place] [address] 09/13/2022 Office Visit [facility] Gald[facility]dujar [facility] [address] [facility] [address] 09/13/2022 Office Visit [facility], Pharmacist [address] [address] 09/21/2022 Home Visit [facility] Brooke Jose RN [address] [facility] [place] [address] 01/19/2023 PulmDiagnostic Pulmonary Function [place], Pft [address] [facility] [place] [address] 08/08/2023 Nurse Only [facility] [employer], Nurse Annual Wellness Visit [address] [facility] [address] [facility] [address] Scheduled Procedures Name Priority Associated Diagnoses Date/Ti [...] Additional history exists CKD PHOS USE SMARTSET 15772 01/07/202312/25, 03/12/2021, 11/17/2020, Additional history exists DIABETES-FOOT EXAM 01/07/2023 01/07/2022, 0 01/14/2021, 11/07/2019, Additional history exists TSH FOR THYROID MEDICATION MONITORING YEARLY 01/07/2023 01/07/2022, 12/25/2020, 05/06/2020, Additional history exists GFR - Renal Function 02/10/2023 08/13/2022, 07/02/2022, 06/18/2022, Additional history exists DIABETES-EYE EXAM 05/24/2023 05/24/2022, , 04/07/2020, Additional history exists CKD HGB USE SMARTSET 08462 06/29/202306/29, 06/29/2022, 01/07/2022, Additional history exists Mammogram [...] on File Type Date Recorded Patient Senior Process Control Tech Expl anation POLST 03/19/2020 4:25 PM POLST [...] Code 09/06/2009 4:03 PM 09/12/2009 1:47 PM Th is order reflects the patients wishes and were consensually agreed upon. Full Code 08/21/2009 3:22 PM 09/06/2009 4:03 PM Thi s order reflects the patients wishes and were consensually agreed upon. Question Answer Comments Discussion of Advance Directives occurred with: Patient Does the patient have a Living Will? No Does the patient have Health Care Power of Outbound Sales Consultant? No Healthcare Agents on File Name Relationship Healthcare Agent Relationship Communication Galdino Camp Other - (no specific identity) Health Care Power of Outbound Sales Consultant Princess Staplesfany Other - (no specific identity) Health Care Power of Outbound Sales Consultant Care Teams Parcel Post Truck Driver Relationship Specialty Start Date End Date Galdino Andujar, DO [address] [place] [address] PCP - General Internal Medicine 01/07/22 documented as of this encounter
--- OUTSIDE RECORDS SUMMARY | 2023-06-01 04:23 | External Medical Summary | Summary of Care ---
Author Name Unknown Organization [place] [address] Care Team Providers Care Gimp Tacker Name Role Phone Galdino Andujar DO Primary Care Provider [phone] Encounter Details Date Type Department Care Team Description 09/13/2022 Orders Only Outcomes Research Department [address] [place] [address] Mariam Mandujano CHRA MyCode Research Other*[id number] Allergies Active Allergy Reactions Severity Noted Date [...] continuous 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:Inspector Metal Fabricating 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 1 Each 0 04/08/2020 Active Blood Glucose Monitoring Suppl (NuluUCH ULTRA 2) w/Device KIT Use to test [...] of 7.0%-8.0% ([facility]) Inject 40 units with meals + [...] percocet BID prn. Abnormality of gait 02/02/[address] 08/19/2014 History of pulmonary [...] mRNA, LNP-s, No Pre serve, 2-Dose Series ([employer]) 01/08/2021,12/18/2020 COVID-19, LNP-s, No Preserve , Navarro-sucrose, Ages 12+ (Pfizer) 2022,10/01/2021 Pneumococcal Conjugate Vacci ne, 20-valent ([id number]) 03/12/2022 Pneumococcal Polysaccharide PPV23 (Pneumovax) 08/22/2009,06/15/2006 Seasonal [...] Description 09/13/2022 Office Visit Family Medicine Galdino Andujar, [address] [place] [address] 09/13/2022 Office Visit Family Medicine Smitha Napier [address] [facility], [place] [address] 09/15/2022 Imaging Radiology 09/16/2022 Scheduled Telephone [facility], Nurse Fam Prac [address] [facility] [address] [place] [address] 09/21/2022 Home Visit [facility] Brooke Jose, RN [address] [place] [address] 09/29/2022 Scheduled Telephone [facility], Nurse Fam Prac [address] [facility] [address] [place] [address] 01/19/2023 PulmDiagnostic Pulmonary Function [place], Pft [address] [place] [address] 08/08/2023 Nurse Only [facility], Nurse Annual Wellness Visit [address] [facility] [address] [place] [address] Scheduled Orders Name Type Priority Associated Diagnoses Orde r Schedule MYCODE SUBSEQUENT ADULT Lab Routine MyCode Research Other*[id number] Every 6 Months for 2 Occurrences starting 09/13/2022 until 10/03/2023 Scheduled Procedures Name Priority Associated Diagnoses Date/Ti [...] Additional history exists CKD PHOS USE SMARTSET 29484 01/07/202312/25, 03/12/2021, 11/17/2020, Additional history exists DIABETES-FOOT EXAM 01/07/2023 01/07/2022, 0 01/14/2021, 11/07/2019, Additional history exists TSH FOR THYROID MEDICATION MONITORING YEARLY 01/07/2023 01/07/2022, 12/25/2020, 05/06/2020, Additional history exists GFR - Renal Function 02/10/2023 08/13/2022, 07/02/2022, 06/18/2022, Additional history exists DIABETES-EYE EXAM 05/24/2023 05/24/2022, , 04/07/2020, Additional history exists CKD HGB USE SMARTSET 65055 06/29/202306/29, 06/29/2022, 01/07/2022, Additional history exists Mammogram [...] as of this encounter Visit Diagnoses Diagnosis MyCode Research Other*[id number] documented in this encounter Advance Directives Documents on File Type Date Recorded Patient Service Consultant Expl anation POLST 03/19/2020 4:25 PM POLST [...] the patient have Health Care Power of Dressage Instructor? No Healthcare Agents on File Name Relationship Healthcare Agent Relationship Communication Galdino Camp Other - (no specific identity) Health Care Power of Dressage Instructor Princess Other - (no specific identity) Health Care Power of Dressage Instructor Care Teams Gimp Tacker Relationship Specialty Start Date End Date Galdino Andujar, DO [address] [place] [address] PCP - General Internal Medicine 01/07/22 documented as of this encounter
--- OUTSIDE RECORDS SUMMARY | 2023-06-01 04:23 | External Medical Summary ---
Author Name Unknown Address Unknown Organization K01:[facility] - [address] [facility] [address] Laboratory Report Ordering Provider Test Date Status JAG SHULTZ 09/13/2022 14:10:00 Final Observation Date Value Abnormality Reference (Units ) Status BUN 09/13/2022 14:10:00 20 6-20 (mg/dL) Final Creatinine 09/13/2022 14:10:00 1.5 Above high normal 0.5-1.0 (mg/dL) Final Glomerular filtration rate/1.73 sq M.predicted [Volume Rate/Area] in Serum, Plasma or Blood by Creatinine-based formula (CKD-EPI) 09/13/2022 14:10:00 38 Below low normal >=60 (mL/min) Final Performing Location [facility] - [address] [place] [address]
--- OUTSIDE RECORDS SUMMARY | 2023-06-01 04:23 | External Medical Summary | Summary of Care ---
Author Name Unknown Organization [place] [address] Care Team Providers Care Banquet Captain Name Role Phone Galdino Andujar DO Primary Care Provider [phone] Reason for Visit * Reason Onset Date Comments Information 09/16/2022 Encounter Details Date Type Department Care Team Description 09/16/2022 Scheduled Telephone Family Practice 65 [facility] [address] [place] [address] [place], Nurse [facility] Prac [address] [address] Allergies Active Allergy Reactions Severity Noted Date [...] as of this encounter (statuses as of 09/16/2022) Medications Medication Sig Dispensed Refills Start Date End Date Status VALENTINATOGRABIEL BISWAS LANCETS 33G MISC Check blood sugars 3-4 times daily 180 Each 5 08/01/2018 Active oxygen GASIndications:ELISSA (obstructive sleep apnea) 2 lpm continuous 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:Manager Testing zahra diastolic congestive heart failure (HCC) If [...] mellitus with hemoglobin A1c goal of 7.0%-8.0% ([facility]) Inject 40 units with meals + sliding scale 1 units for every 25 units BG > 150. 121 mL 3 11/04/2021 Active Tresiba FlexTouch 100 UNIT/ML Subcutaneous Solution Pen-injector (Insulin Degludec)Indications :Type 2 diabetes mellitus with hemoglobin A1c goal of 7.0%-8.0% ([facility]) INJECT 60 UNITS UNDER THE [...] NYHA class 1 and CKD stage 3 ([facility]),Chronic diastolic congestive heart failure (HCC) Take 1 Capsule (400 mg) by mouth in the morning and 1 Capsule (400 mg) before bedtime. 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/31/2021 Atherosclerosis of [place] coronary arter 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 [...] as of this encounter (statuses as of 09/16/2022) Resolved Problems Problem Noted Date Resolved Date [...] as of this encounter (statuses as of 09/16/2022) Immunizations Name Administration Dates Next Due COVID-19 mRNA, LNP-s, No Pre serve, 2-Dose Series ([employer]) 01/08/2021,12/18/2020 COVID-19, LNP-s, No Preserve , Navarro-sucrose, Ages 12+ (Pfizer) 2022,10/01/2021 Pneumococcal Conjugate Vacci ne, 20-valent ([id number]) 03/12/2022 Pneumococcal Polysaccharide PPV23 (Pneumovax) 08/22/2009,06/15/2006 Seasonal [...] Miscellaneous Notes * Telephone Encounter - Shira De La Rosa RN - 09/16/2022 12:41 PM EST We are calling you today to ensure you have a healthy holiday season. Do you check your weight at home? yes If yes, what is your weight today? 312 lb Symptom review: Do you have any SOB at baseline: with exertion-wears O2 2L at night, 3-4 L during day Do you have any cough at baseline: no Orthopnea: no Do you have any leg swelling or abdominal fullness at baseline: normal (If yes, where) Current diuretic use: takes furosemide 60 mg bid, can increase dose if needed (if PRN, ask how often or what their criteria is) Advised patient: During this holiday season, please watch your sodium intake foods such as ham, canned goods, pork and sauerkraut and avoid adding extra salt to foods. Please be aware that this can increase your fluid retention and cause a heart failure exacerbation. Patient questions none Patient advised to call if > 3 lb weight gain in 24 hours or any SOB. Script: Please know we are here to support you and any questions you have. We will plan to call again after the . If you have [facility], you may also get a call from them. documented in this encounter Plan of Treatment Upcoming Encounters Date Type Specialty Care Team Description 09/23/2022 Home Visit [facility] Brooke Jose RN [address] [facility] [place] [address] 09/29/2022 Scheduled Telephone [facility], Nurse Fam Prac [address] [place] [address] 09/29/2022 Office Visit [facility] Medicine Galdino Andujar, [address] [place] [address] 10/04/2022 Office Visit [facility], Pharmacist [address] [place] [address] 01/19/2023 PulmDiagnostic Pulmonary Function [place], Pft [address] [place] [address] 08/08/2023 Nurse Only [facility], Nurse Annual Wellness Visit [address] [address] Scheduled Procedures Name Priority Associated Diagnoses Date/Ti [...] Additional history exists CKD PHOS USE SMARTSET 22476 01/07/2023 04/12/2021, 03/12/2021, 11/17/2020, Additional history exists DIABETES-FOOT EXAM 01/07/2023 01/07/2022, 0 01/14/2021, 11/07/2019, Additional history exists TSH FOR THYROID MEDICATION MONITORING YEARLY 01/07/2023 01/07/2022, 12/25/2020, 05/06/2020, Additional history exists GFR - Renal Function 03/14/2023 09/13/2022, 08/13/2022, 07/02/2022, Additional history exists DIABETES-EYE EXAM 05/24/2023 05/24/2022, , 04/07/2020, Additional history exists CKD HGB USE SMARTSET 30595 06/29/202306/29, 06/29/2022, 01/07/2022, Additional history exists Depression [...] Documents on File Type Date Recorded Patient 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 No Healthcare Agents on File Name Relationship Healthcare Agent Relationship Communication Galdino Camp Other - (no specific identity) Health Care Power of Project Management Advisor Princess Allen Other - (no specific identity) Health Care Power of Project Management Advisor Care Teams Banquet Captain Relationship Specialty Start Date End Date Galdino Andujar, DO [address] [place] [address] PCP - General Internal Medicine 01/07/22 documented as of this encounter
--- OUTSIDE RECORDS SUMMARY | 2023-06-01 04:24 | External Medical Summary | Summary of Care ---
Author Name Unknown Organization [place] [address] Care Team Providers Care Supervisor Delivery Department Name Role Phone ZiaandrewsGaldino DO Primary Care Provider Reason for Visit * Reason Comments [facility]: Acute Increased sob Encounter Details Date Type Department Care Team Description 09/06/2022 Home Visit [facility], [facility] [address] [facility] [place] [address] Bro[facility] Jose [facility] [address] [facility] [place] [address] Allergies Active Allergy Reactions Severity Noted Date [...] lpm continuous 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: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 1 Each 0 04/08/2020 Active Blood Glucose Monitoring Suppl (UnsiloTOUCH ULTRA 2) w/Device KIT Use to test BG values 1 Kit 0 05/20/2020 Active Acetaminophen 500 MG Oral Tablet Take 500 mg by mouth every 6 hours as needed. 0 Active CPAP every night at bedtime. 0 Active BD Pen Needle Short U/F 31G X 8 MM (Insulin Pen Needle) use five times daily 500 Each 3 11/04/2021 Active bluebird bioTouch Ultra Blue In Vitro Strip (Glucose Blood) Check sugars 3-4 times daily, E11.9 400 Strip 3 11/04/2021 Active Trulicity 4.5 MG/0.5ML Subcutaneous Solution Pen-injector (Dulaglutide) Inject 1 pen under the skin weekly 6 mL 5 11/03/2021 Active NovoLOG FlexPen 100 UNIT/ML Subcutaneous Solution Pen-injector (insulin aspart)Indications:T ype 2 diabetes mellitus with hemoglobin A1c goal of 7.0%-8.0% ([facility]) Inject 40 units with meals + sliding scale 1 units for every 25 units BG > 150. 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 Visit Date: 09/06/2022 Time: 11:42 AM Name: Stephanie Camp : 1955 Situation: Increased bloating, sob Background: [facility] Enrollment Date: 06/14/22- Focused Care (3-9 months) PMHx: Frank filter, CHF, CHF, DVT, venous insufficiency, vasculitis, CAD, carotid stenosis, chronic hypoxemic respiratory failure, ELISSA, o2 dependent, GERD, DM, Hx PE, spinal stenosis Utilization: 07/16 - - [facility] Admission - falls, acute on chronic CHF, acute on chronic respiratory failure,cellulitis R hand d/t cat bite 07/29 - 03/17 - [facility] - acute on chronic resp fx with hypoxia, UTI, chronic diastolic HF, d/c home on doxycycline and cefdinir 09/06/22 - Acute [facility] HV - 08/04 and 08/25/22 - scheduled for cataract surgeries Assessment: Per Intake call this morning to Marlena Franco RN: ''Stephanie Camp is a 67 year old female that is calling [facility] Intake to report: Symptoms of [...] cellulitis Above assessment and vs TT to [facility] Role, Dr. Ann Problems/Symptoms: Review of Systems [...] status is at baseline. Gait: Gait abnormal. [facility] Completed this Visit: Yes. [facility]: Reason Completed: Status post acute event/change in baseline [facility] Interventions: Fall education provided, reviewed/provided Fall brochure Treatment/Plan: Urine culture - collected and taken to [facility] for cellulitis DTP - double dose of lasix x3 days On for calls next two days STOP EATING DILL PICKLES AND DRINKING PICKLE JUICE!! Low salt diet Awaiting arrival of new Dexcom USES PILL PACKS FROM [facility] [facility] DRY WT as of 09/06/22 - 309lbs Weigh daily and record Frequent UTI's - typically asymptomatic until has fever, has standing order for urine culture Ambulate with roller walker at ALL times o2 2lnc at rest, 4Lnc with activity - [facility] [phone] WEAR O2 AT ALL TIMES OR BECOMES [...] medication regimen Patient Needs to Remember: Call [facility] with red flags Referrals Needed: none Follow [...] Team Description 09/07/2022 Scheduled Telephone [facility], [facility] [address] [facility] [place] [address] 09/08/2022 Scheduled Telephone [facility], [facility] [address] [place] [address] 09/13/2022 Office Visit [facility] Medicine Galdino [facility]du[facility] [address] [facility] [address] 09/13/2022 Office Visit [facility], Pharmacist [address] [address] 09/21/2022 Home Visit [facility] Brooke Jose RN [address] [facility] [place] [address] 01/19/2023 PulmDiagnostic Pulmonary Function [place], Pft [address] [facility] [place] [address] 08/08/2023 Nurse Only [employer], Nurse Annual Wellness Visit 65 [facility] [address] [facility] [address] Scheduled Procedures Name Priority Associated Diagnoses Date/Ti [...] Additional history exists CKD PHOS USE SMARTSET 84008 01/07/202312/25, 03/12/2021, 11/17/2020, Additional history exists DIABETES-FOOT EXAM 01/07/2023 01/07/2022, 0 01/14/2021, 11/07/2019, Additional history exists TSH FOR THYROID MEDICATION MONITORING YEARLY 01/07/2023 01/07/2022, 12/25/2020, 05/06/2020, Additional history exists GFR - Renal Function 02/10/2023 08/13/2022, 07/02/2022, 06/18/2022, Additional history exists DIABETES-EYE EXAM 05/24/2023 05/24/2022, , 04/07/2020, Additional history exists CKD HGB USE SMARTSET 60608 06/29/202306/29, 06/29/2022, 01/07/2022, Additional history exists Mammogram [...] Documents on File Type Date Recorded 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 No Healthcare Agents on File Name Relationship Healthcare Agent Relationship Communication Galdino Camp Other - (no specific identity) Health Care Power of Wound Care Center Consultant Princess Staplesfany Other - (no specific identity) Health Care Power of Wound Care Center Consultant Care Teams Supervisor Delivery Department Relationship Specialty Start Date End Date Galdino Andujar, DO [address] [place] [address] PCP - General Internal Medicine 01/07/22 documented as of this encounter
--- OUTSIDE RECORDS SUMMARY | 2023-06-01 04:24 | External Medical Summary | Summary of Care ---
Author Name Unknown Organization [place] [address] Care Team Providers Care Home Stager Name Role Phone Galdino Andujar DO Primary Care Provider [phone] Reason for Visit * Reason Onset Date Comments Appointment 08/23/2022 Encounter Details Date Type Department Care Team Description 08/23/2022 Telephone [facility], [facility] [address] [place] [place] [address] Services, Scheduling [address] [place] [address] Appointment (/) Allergies Active Allergy Reactions Severity Noted Date Comments Codeine 07/08/2014 hallucination Pollen 05/18/2019 Heparin 09/04/2009 Heparin Induced Thrombocytopenia Hydrocodone Neuro complications (Please comment) 07/28/2020 Empagliflozin Other (Please comment) Medium 05/17/2018 3 yeast infections in 6 weeks after starting Morphine And Related 09/16/1997 Hallucinations Tetanus Toxoid Other (Please comment) 06/15/2011 Passed out documented as of this encounter (statuses as of 08/23/2022) Medications Medication Sig Dispensed Refills Start Date End Date Status ONETOUCH DELICA LANCETS 33G MISC Check blood sugars 3-4 times daily 180 Each 5 08/01/2018 Active oxygen GASIndications:ELISSA (obstructive sleep apnea) 2 lpm continuous 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:Pre Certification Specialist 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 1 Each 0 04/08/2020 Active Blood Glucose Monitoring Suppl (GoCoopUCH ULTRA 2) w/Device KIT Use to test BG values 1 Kit 0 05/20/2020 Active Acetaminophen 500 MG Oral Tablet Take 500 mg by mouth every 6 hours as needed. 0 Active Meclizine HCl 12.5 MG Oral Tablet (Antivert)Indication s:Vertigo Take 1 Tab by mouth 3 times a day as needed for Dizziness. 30 Tab 1 12/29/2020 Active CPAP every night at bedtime. 0 Active metOLazone 2.5 MG Oral Tablet (Zaroxolyn) Take 2.5 mg by mouth daily as needed. Do not take unless instructed by provider 0 Active BD Pen Needle Short U/F 31G X 8 MM (Insulin Pen Needle) use five times daily 500 Each 3 11/04/2021 Active OneTouch Ultra Blue In Vitro Strip (Glucose Blood) Check sugars 3-4 times daily, E11.9 400 Strip 3 11/04/2021 Active Cyclobenzaprine HCl 10 MG Oral Tablet (Flexeril)Indication s:Spinal stenosis of lumbar region without neurogenic claudication,Lumbar radiculopathy TAKE ONE TABLET BY MOUTH AT BEDTIME NEEDED FOR SPASM 90 Tablet 3 11/03/2021 Active Trulicity 4.5 MG/0.5ML Subcutaneous Solution Pen-injector (Dulaglutide) Inject 1 pen under the skin weekly 6 mL 5 11/03/2021 Active Levothyroxine Sodium 50 MCG Oral Tablet (Levoxyl)Indications :Hyperparathyroidism , secondary renal (HCC) Take by mouth 1 Tablet in the morning. (at least 30 min prior to breakfast or other meds). 90 Tablet 3 11/03/2021 Active Ondansetron HCl 4 MG Oral TabletIndications:Ve rtigo Take by mouth 1 Tablet every 6 hours as needed for Nausea. 90 Tablet 6 11/03/2021 Active NovoLOG FlexPen 100 UNIT/ML Subcutaneous Solution Pen-injector (insulin aspart)Indications:T ype 2 diabetes mellitus with hemoglobin A1c goal of 7.0%-8.0% (HCC) Inject 40 units with meals + sliding scale 1 units for every 25 units BG > 150. 121 mL 3 11/04/2021 Active Nortriptyline HCl 50 MG Oral Capsule (Pamelor)Indications :Fibromyalgia TAKE ONE CAPSULE BY MOUTH AT BEDTIME 100 Capsule 3 04/01/2022 Active rOPINIRole HCl 2 MG Oral Tablet (Requip)Indications: Restless legs syndrome TAKE ONE TABLET BY MOUTH AT BEDTIME 100 Tablet 3 04/15/2022 Active metFORMIN HCl ER 500 MG Oral Tablet Extended Release 24 Hour (Glucophage XR)Indications:Type 2 diabetes mellitus with hemoglobin A1c goal of less than 8.0% (HCC) Take by mouth 1 Tablet in the morning. 100 Tablet 1 05/12/2022 Active Levothyroxine Sodium 200 MCG Oral Tablet (Levoxyl)Indications :Postsurgical hypothyroidism TAKE ONE TABLET BY MOUTH IN THE MORNING AT LEAST 30 MINUTES PRIOR TO BREAKFAST OR OTHER MEDS 100 Tablet 3 06/08/2022 Active traZODone HCl 50 MG Oral Tablet (Desyrel) Take by mouth 1 Tablet before bedtime. 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 300 Tablet 3 07/26/2022 Active oxyCODONE-Acetaminop hen 5-325 MG Oral Tablet (Percocet)Indication s:Lumbar radiculopathy,Spinal stenosis of lumbar region without neurogenic claudication Take by mouth 1 Tablet every 12 hours as needed for Pain, Severe. 60 Tablet 0 07/26/2022 Active Cholecalciferol 25 MCG (1000 UT) Oral Capsule Take 1 Capsule (1,000 Units) by mouth in the morning. 90 Capsule 3 08/05/2022 Active Sennosides-Docusate Sodium 8.6-50 MG Oral Tablet Take 1 Tablet by mouth in the morning and 1 Tablet before bedtime. 0 08/05/2022 Active DULoxetine HCl 60 MG Oral Capsule Delayed Release Particles (Cymbalta)Indication s:Fibromyalgia,Moder ate episode of recurrent major depressive disorder (HCC),Primary osteoarthritis of both knees Take 1 Capsule (60 mg) by mouth in the morning. Take 1 capsule daily. 30 Capsule 0 08/10/2022 Active Apixaban 5 MG Oral Tablet (Eliquis) Take 1 Tablet (5 mg) by mouth in the morning and 1 Tablet (5 mg) before bedtime. 10mg twice a day x 7 days then 5mg twice a day . 180 Tablet 3 08/10/2022 Active clonazePAM 0.5 MG Oral Tablet (KlonoPIN)Indication s:Anxiety state Take 1 Tablet (0.5 mg) by mouth in the morning and 1 Tablet (0.5 mg) before bedtime. 60 Tablet 0 08/10/2022 Active Gabapentin 100 MG Oral Capsule (Neurontin)Indicatio ns:Restless legs syndrome,Fibromyalgi a Take 2 Capsules (200 mg) by mouth at bedtime. 200 Capsule 3 08/16/2022 Active Omeprazole 20 MG Oral Capsule Delayed ReleaseIndications:G astroesophageal reflux disease with esophagitis without hemorrhage Take 1 Capsule (20 mg) by mouth in the morning. 90 Capsule 3 08/18/2022 Active Dicyclomine HCl 20 MG Oral Tablet (Bentyl)Indications: Irritable bowel syndrome, unspecified type Take 1 Tablet (20 mg) by mouth 4 times a day as needed for Cramping. 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 [...] as of this encounter (statuses as of 08/23/2022) Immunizations Name Administration Dates Next Due COVID-19 mRNA, LNP-s, No Pre serve, 2-Dose Series ([employer]) 01/08/2021,12/18/2020 COVID-19, LNP-s, No Preserve , Navarro-sucrose, Ages 12+ (Pfizer) 2022,10/01/2021 Pneumococcal Conjugate Vacci ne, 20-valent ([id number]) 03/12/2022 Pneumococcal Polysaccharide PPV23 (Pneumovax) 08/22/2009,06/15/2006 Seasonal [...] got money to buy more. Never true 08/06/2022 Within the past 12 months, t he food you bought just didn't last and you didn't have money to get more. Never true 08/06/2022 Sex Assigned at Date Recorded Female 11/07/2019 2:[address] Job Start Date Occupation Industry Not on file Not on file Not on file documented as of this encounter Miscellaneous Notes * Telephone Encounter - ELISSA Romero - 08/23/2022 11:32 AM EST Incoming call from [facility] to rescheduled tomorrow's appointment, due to conflicting appointments. Moved to 08/25. ELISSA Romero documented in this encounter Plan of Treatment Upcoming Encounters Date Type Specialty Care Team Description 08/25/2022 Office Visit Pulmonary Nikita Sanchez MD [address] [place] [id number] 08/25/2022 Home Visit [facility] Brooke Jose, RN [address] [place] [address] [place] [address] 08/30/2022 [facility] [address] 09/13/2022 Office Visit Family Medicine Galdino Andujar, DO [address] [facility], [place] [address] 01/19/2023 PulmDiagnostic Pulmonary Function [place], [address] [place] [address] 08/08/2023 Nurse Only Ancillary College, Nurse Annual Wellness Visit [address] [facility], [place] [address] Scheduled Procedures Name Priority Associated Diagnoses Date/Ti [...] Additional history exists CKD PHOS USE SMARTSET 83385 01/07/202312/25, 03/12/2021, 11/17/2020, Additional history exists DIABETES-FOOT EXAM 01/07/2023 01/07/2022, 0 01/14/2021, 11/07/2019, Additional history exists TSH FOR THYROID MEDICATION MONITORING YEARLY 01/07/2023 01/07/2022, 12/25/2020, 05/06/2020, Additional history exists GFR - Renal Function 02/10/2023 08/13/2022, 07/02/2022, 06/18/2022, Additional history exists DIABETES-EYE EXAM 05/24/2023 05/24/2022, , 04/07/2020, Additional history exists CKD HGB USE SMARTSET 01002 06/29/202306/29, 06/29/2022, 01/07/2022, Additional history exists Depression Screening, Annual for Pts 12 and Over 08/05/2023 08/05/2022, 06/12/2018 Mammogram 02/12/2024 02/11/2022, 02/2021, 07/10/2019, Additional [...] Documents on File Type Date Recorded Patient 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 No Healthcare Agents on File Name Relationship Healthcare Agent Relationship Communication Galdino Camp Other - (no specific identity) Health Care Power of Prepress Stripper Princess Thrashery Other - (no specific identity) Health Care Power of Prepress Stripper Care Teams Home Stager Relationship Specialty Start Date End Date Galdino Andujar, DO [address] [place] [address] PCP - General Internal Medicine 01/07/22 documented as of this encounter
--- OUTSIDE RECORDS SUMMARY | 2023-06-01 04:24 | External Medical Summary | Summary of Care ---
Author Name Unknown Organization [place] [address] Care Team Providers Care Wick Tender Name Role Phone Galdino Andujar DO Primary Care Provider [phone] Reason for Visit * Reason Onset Date Comments [facility]: Maintenance 08/24/2022 P ill pack coordination Encounter Details Date Type Department Care Team Description 08/24/2022 Scheduled Telephone [facility], 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, NYHA class 1 and CKD stage 3 ([facility]); Chronic diastolic congestive heart failure ([facility]); Restless legs syndrome; POSTSURGICAL HYPOTHYROID; Hyperparathyroidism, secondary renal ([facility]); Type 2 diabetes mellitus with hemoglobin A1c goal of less than 8.0% ([facility]); Gastroesophageal reflux disease with esophagitis without hemorrhage; Irritable bowel syndrome, unspecified type; Vertigo Allergies Active Allergy Reactions Severity Noted Date Comments Codeine 07/08/2014 hallucination Pollen 05/18/2019 Heparin 09/04/2009 Heparin Induced Thrombocytopenia Hydrocodone Neuro complications (Please comment) 07/28/2020 Empagliflozin Other (Please comment) Medium 05/17/2018 3 yeast infections in 6 weeks after starting Morphine And Related 09/16/1997 Hallucinations Tetanus Toxoid Other (Please comment) 06/15/2011 Passed out documented as of this encounter (statuses as of 08/25/2022) Medications Medication Sig Dispensed Refills Start Date End Date Status DEMIAN BISWAS LANCETS 33G MISC Check blood sugars 3-4 times daily 180 Each 5 08/01/2018 Active oxygen GASIndications:ELISSA (obstructive sleep apnea) 2 lpm continuous 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:[employer] 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 1 Each 0 04/08/2020 Active Blood Glucose Monitoring Suppl (Eve ULTRA 2) w/Device KIT Use to test [...] times daily 500 Each 3 11/04/2021 Active ComecerTouch Ultra Blue In Vitro Strip (Glucose Blood) [...] hemoglobin A1c goal of less than 8.0% ([facility]) Take by mouth 1 Tablet in the [...] as of this encounter (statuses as of 08/25/2022) Active Problems Problem Noted Date ILD (interstitial [...] as of this encounter (statuses as of 08/25/2022) Resolved Problems Problem Noted Date Resolved Date [...] as of this encounter (statuses as of 08/25/2022) Immunizations Name Administration Dates Next Due COVID-19 mRNA, LNP-s, No Pre serve, 2-Dose Series ([employer]) 01/08/2021,12/18/2020 COVID-19, LNP-s, No Preserve , Navarro-sucrose, Ages 12+ ([employer]) 2022,10/01/2021 Pneumococcal Conjugate Vacci ne, 20-valent ([id number]) 03/12/2022 Pneumococcal Polysaccharide PPV23 (Pneumovax) 08/22/2009,06/15/2006 Seasonal [...] Addendum Note - Shira Gross LPN - 08/25/2022 4:20 PM ESTAddended by: SHIRA GROSS on: 08/25/2022 04:20 PM Modules accepted: Orders * Telephone Encounter - Shira Gross LPN - 08/25/2022 4:17 PM EST Pended all needed medications. * Telephone Encounter - Brooke Jose RN - 08/24/2022 9:59 AM EST Working towards pill packs from [facility]. Touched base with them today and they have only received two: Omeprazole and Dicyclomine Can you please send remaining scripts to pharmacy? Her med list is up to date Please reach out withany questions. Thank you, brooke documented in this encounter Plan of Treatment Upcoming Encounters Date Type Specialty Care Team Description 08/25/2022 [facility] Visit [facility] [address] [facility] [address] 08/30/2022 Office Visit Family Medicine Galdino Andujar, DO [address] [facility], [place] [address] 09/13/2022 Office Visit Family Medicine [facility]dino Andujar[facility] [address] [facility] [address] 01/19/2023 PulmDiagnostic Pulmonary Function [place], [address] [facility] [place] [address] 08/08/2023 Nurse Only Ancillary College, Nurse Annual Wellness Visit [address] [facility] [address] Scheduled Procedures Name Priority Associated Diagnoses Date/Ti [...] Additional history exists CKD PHOS USE SMARTSET 60781 01/07/202312/25, 03/12/2021, 11/17/2020, Additional history exists DIABETES-FOOT EXAM 01/07/2023 01/07/2022, 0 01/14/2021, 11/07/2019, Additional history exists TSH FOR THYROID MEDICATION MONITORING YEARLY 01/07/2023 01/07/2022, 12/25/2020, 05/06/2020, Additional history exists GFR - Renal Function 02/10/2023 08/13/2022, 07/02/2022, 06/18/2022, Additional history exists DIABETES-EYE EXAM 05/24/2023 05/24/2022, , 04/07/2020, Additional history exists CKD HGB USE SMARTSET 59666 06/29/202306/29, 06/29/2022, 01/07/2022, Additional history exists Depression Screening, Annual for Pts 12 and Over 08/05/2023 08/05/2022, 06/12/2018 Mammogram 02/12/2024 02/11/2022, 01/02/2021, 07/10/2019, Additional history exists Colonoscopy: Ages 45-75 [...] Diagnoses Diagnosis Anxiety state Anxiety state, unspecified Spinal stenosis of lumbar region without neurogenic claudication Spinal stenosis, lumbar region, without neurogenic claudication Lumbar radiculopathy Thoracic or lumbosacral neuritis or radiculitis, unspecified Fibromyalgia Mylagia and myositis, unspecified Moderate episode of recurrent major depressive disorder (HCC) Primary osteoarthritis of both knees Primary localized osteoarthrosis, lower leg 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, NYHA class 1 and CKD stage 3 (HCC) Chronic diastolic congestive heart failure (HCC) Chronic diastolic heart failure Restless legs syndrome Restless legs syndrome (RLS) POSTSURGICAL HYPOTHYROID Postsurgical hypothyroidism Hyperparathyroidism, secondary renal (HCC) Secondary hyperparathyroidism (of renal origin) Type 2 diabetes mellitus with hemoglobin A1c goal of less than 8.0% (HCC) Gastroesophageal reflux disease with esophagitis without hemorrhage Irritable bowel syndrome, unspecified type Vertigo Dizziness and giddiness documented in this encounter Advance Directives Documents on File Type Date Recorded Patient Manager Icu Expl anation POLST 03/19/2020 4:25 PM POLST [...] the patient have Health Care Power of Infantry Unit Leader? No Healthcare Agents on File Name Relationship Healthcare Agent Relationship Communication Galdino Camp Other - (no specific identity) Health Care Power of Infantry Unit Leader Princess Staplesfany Other - (no specific identity) Health Care Power of Infantry Unit Leader Care Teams Wick Tender Relationship Specialty Start Date End Date Galdino Andujar, DO [address] [place] [address] PCP - General Internal Medicine 01/07/22 documented as of this encounter
--- OUTSIDE RECORDS SUMMARY | 2023-06-01 04:24 | External Medical Summary | Summary of Care ---
Author Name Unknown Organization [place] [address] Care Team Providers Care Technical Internship Name Role Phone Lexii Andujar DO Primary Care Provider [phone] Reason for Visit * Reason Onset Date Comments [facility]: Maintenance 08/24/2022 P ill pack coordination Encounter Details Date Type Department Care Team Description 08/24/2022 Scheduled Telephone [facility], [facility] [address] [facility] [place] [address] Brooke Jose RN [address] [place] [address] Anxiety state; Spinal stenosis of lumbar region without neurogenic claudication; Lumbar radiculopathy; Fibromyalgia; Moderate episode of recurrent major depressive disorder ([facility]); Primary osteoarthritis of both knees; 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, NYHA class 1 and CKD stage 3 ([facility]); Chronic diastolic congestive heart failure ([facility]); Restless legs syndrome; POSTSURGICAL HYPOTHYROID; Hyperparathyroidism, secondary renal ([facility]); Type 2 diabetes mellitus with hemoglobin A1c goal of less than 8.0% ([facility]); Gastroesophageal reflux disease with esophagitis without [...] 0 04/08/2020 Active Blood Glucose Monitoring Suppl ([employer] ULTRA 2) w/Device KIT Use to test BG values 1 Kit 0 05/20/2020 Active Acetaminophen 500 MG Oral Tablet Take 500 mg by mouth every 6 hours as needed. 0 Active CPAP every night at bedtime. 0 Active BD Pen Needle Short U/F 31G X 8 MM (Insulin Pen Needle) use five times daily 500 Each 3 11/04/2021 Active [place] Ultra Blue In Vitro Strip (Glucose Blood) [...] the morning. 30 Capsule 5 08/25/2022 Active Cyclobenzaprine HCl 10 MG Oral Tablet (Flexeril)Indicatio ns:Spinal stenosis of lumbar region without neurogenic claudication,Lumbar radiculopathy TAKE ONE TABLET BY MOUTH AT BEDTIME NEEDED FOR SPASM 30 Tablet 5 08/25/2022 Active DULoxetine HCl 60 MG Oral Capsule Delayed Release Particles (Cymbalta)Indicatio ns:Fibromyalgia,Mod erate episode of recurrent major depressive disorder (HCC),Primary osteoarthritis of both knees Take 1 Capsule (60 mg) by mouth in the morning. Take 1 capsule daily. 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 45 Tablet 5 08/25/2022 Active Gabapentin 100 MG Oral Capsule (Neurontin)Indicati ons:Fibromyalgia,Re stless legs syndrome Take 2 Capsules (200 mg) by mouth at bedtime. 60 Capsule 5 08/25/2022 Active Levothyroxine Sodium 200 MCG Oral Tablet (Levoxyl)Indication s:Postsurgical hypothyroidism TAKE ONE TABLET BY MOUTH IN THE MORNING AT LEAST 30 MINUTES PRIOR TO BREAKFAST OR OTHER MEDS 30 Tablet 5 08/25/2022 Active Levothyroxine Sodium 50 MCG Oral Tablet (Levoxyl)Indication s:Hyperparathyroidi sm, secondary renal (HCC) Take 1 Tablet (50 mcg) by mouth in the morning. (at least 30 min prior to breakfast or other meds). 30 Tablet 5 08/25/2022 Active Magnesium Oxide 400 MG [...] the morning. 30 Tablet 5 08/25/2022 Active Nortriptyline HCl 50 MG Oral Capsule (Pamelor)Indication s:Fibromyalgia Take 1 Capsule (50 mg) by mouth at bedtime. 30 Capsule 5 08/25/2022 Active Omeprazole 20 MG Oral [...] for Nausea. 90 Tablet 6 08/25/2022 Active Meclizine HCl 12.5 MG Oral Tablet (Antivert)Indicatio ns:Vertigo Take 1 Tab by mouth 3 times a day as needed for Dizziness. 30 Tab 1 12/29/2020 08/25/20 22 Discontinu ed(Refill) metOLazone 2.5 MG Oral Tablet (Zaroxolyn) Take 2.5 mg by mouth daily as needed. Do not take unless instructed by provider 0 08/25/20 22 Discontinu ed(Refill) Cyclobenzaprine HCl 10 MG Oral Tablet (Flexeril)Indicatio ns:Spinal stenosis of lumbar region without neurogenic claudication,Lumbar radiculopathy TAKE ONE TABLET BY MOUTH AT BEDTIME NEEDED FOR SPASM 90 Tablet 3 11/03/2021 08/25/20 22 Discontinu ed(Refill) Levothyroxine Sodium 50 MCG Oral Tablet (Levoxyl)Indication s:Hyperparathyroidi sm, secondary renal (HCC) Take by mouth 1 Tablet in the morning. (at least 30 min prior to breakfast or other meds). 90 Tablet 3 11/03/2021 08/25/20 22 Discontinu ed(Refill) Ondansetron HCl 4 MG Oral TabletIndications:V ertigo Take by mouth 1 Tablet every 6 hours as needed for Nausea. 90 Tablet 6 11/03/2021 08/25/20 22 Discontinu ed(Refill) Nortriptyline HCl 50 MG Oral Capsule (Pamelor)Indication s:Fibromyalgia TAKE ONE CAPSULE BY MOUTH AT BEDTIME 100 Capsule 3 04/01/2022 08/25/20 22 Discontinu ed(Refill) rOPINIRole HCl 2 MG Oral Tablet (Requip)Indications :Restless legs syndrome TAKE ONE TABLET BY MOUTH AT BEDTIME 100 Tablet 3 04/15/2022 08/25/20 22 Discontinu ed(Refill) metFORMIN HCl ER 500 MG Oral Tablet Extended Release 24 Hour (Glucophage XR)Indications:Type 2 diabetes mellitus with hemoglobin A1c goal of less than 8.0% ([facility]) Take by mouth 1 Tablet in the morning. 100 Tablet 1 05/12/2022 08/25/20 22 Discontinu ed(Refill) Levothyroxine Sodium 200 MCG Oral Tablet (Levoxyl)Indication s:Postsurgical hypothyroidism TAKE ONE TABLET BY MOUTH IN THE MORNING AT LEAST 30 MINUTES PRIOR TO BREAKFAST OR OTHER MEDS 100 Tablet 3 06/08/2022 08/25/20 22 Discontinu ed(Refill) traZODone HCl 50 MG Oral Tablet (Desyrel) Take by mouth 1 Tablet before bedtime. 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 300 Tablet 3 07/26/2022 08/25/20 Discontinu ed(Refill) Cholecalciferol 25 MCG (1000 UT) Oral Capsule Take 1 Capsule (1,000 Units) by mouth in the morning. 90 Capsule 3 08/05/2022 08/25/20 22 Discontinu ed(Refill) Sennosides-Docusate Sodium 8.6-50 MG Oral Tablet Take 1 Tablet by mouth in the morning and 1 Tablet before bedtime. 0 08/05/2022 08/25/20 Discontinu ed(Refill) DULoxetine HCl 60 MG Oral Capsule Delayed Release Particles (Cymbalta)Indicatio ns:Fibromyalgia,Mod erate episode of recurrent major depressive disorder (HCC),Primary osteoarthritis of both knees Take 1 Capsule (60 mg) by mouth in the morning. Take 1 capsule daily. 30 Capsule 0 08/10/2022 08/25/20 22 Discontinu ed(Refill) Apixaban 5 MG Oral Tablet (Eliquis) Take 1 Tablet (5 mg) by mouth in the morning and 1 Tablet (5 mg) before bedtime. 10mg twice a day x 7 days then 5mg twice a day . 180 Tablet 3 08/10/2022 08/25/20 Discontinu ed(Refill) Gabapentin 100 MG Oral Capsule (Neurontin)Indicati ons:Restless legs syndrome,Fibromyalg ia Take 2 Capsules (200 mg) by mouth at bedtime. 200 Capsule 3 08/16/2022 08/25/20 22 Discontinu ed(Refill) Omeprazole 20 MG Oral Capsule Delayed ReleaseIndications: Gastroesophageal reflux disease with esophagitis without hemorrhage Take 1 Capsule (20 mg) by mouth in the morning. 90 Capsule 3 08/18/2022 08/25/20 Discontinu ed(Refill) Dicyclomine HCl 20 MG Oral Tablet (Bentyl)Indications :Irritable bowel syndrome, unspecified type Take 1 Tablet (20 mg) by mouth 4 times a day as needed for Cramping. 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 Abnormality of gait 02/02/[address] [place] [address] 08/19/2014 History of pulmonary [...] mRNA, LNP-s, No Pre serve, 2-Dose Series ([employer]) 01/08/2021,12/18/2020 COVID-19, LNP-s, No Preserve , Navarro-sucrose, Ages 12+ (Pfizer) 2022,10/01/2021 Pneumococcal Conjugate Vacci ne, 20-valent ([id number]) 03/12/2022 Pneumococcal Polysaccharide PPV23 (Pneumovax) 08/22/2009,06/15/2006 Seasonal [...] encounter Miscellaneous Notes * Addendum Note - Lexii Andujar DO - 08/25/2022 4:40 PM ESTAddended by: LEXII ANDUJAR on: 08/25/2022 04:40 PM Modules accepted: Orders * Addendum Note - Shira Gross LPN - 08/25/2022 4:20 PM ESTAddended by: SHIRA GROSS on: 08/25/2022 04:20 PM Modules accepted: Orders * Telephone Encounter - Shira Gross LPN - 08/25/2022 4:17 PM EST Pended all needed medications. * Telephone Encounter - Brooke Jose RN - 08/24/2022 9:59 AM EST Working towards pill packs from [facility]. Touched base with them today and they have only received two: Omeprazole and Dicyclomine Can you please send remaining scripts to pharmacy? Her med list is up to date Please reach out withany questions. Thank you, brooke documented in this encounter Plan of Treatment Upcoming Encounters Date Type Specialty Care Team Description 08/30/2022 Office Visit Family Medicine Lexii Andujar, DO [address] [place] [address] 09/13/2022 Office Visit Family Medicine Lexii Andujar, DO [address] [place] [address] 09/21/2022 Home Visit [facility] Brooke Jose RN [address] [place] [address] 01/19/2023 Pul[facility]Diagnostic [facility] Function [facility] [address] [facility] [address] 08/08/2023 Nurse Only [employer]illary [employer], Nurse Annual Wellness Visit [address] [place] [address] Scheduled Procedures Name Priority Associated Diagnoses Date/Ti [...] Additional history exists CKD PHOS USE SMARTSET 70862 01/07/202312/25, 03/12/2021, 11/17/2020, Additional history exists DIABETES-FOOT EXAM 01/07/2023 01/07/2022, 0 01/14/2021, 11/07/2019, Additional history exists TSH FOR THYROID MEDICATION MONITORING YEARLY 01/07/2023 01/07/2022, 12/25/2020, 05/06/2020, Additional history exists GFR - Renal Function 02/10/2023 08/13/2022, 07/02/2022, 06/18/2022, Additional history exists DIABETES-EYE EXAM 05/24/2023 05/24/2022, , 04/07/2020, Additional history exists CKD HGB USE SMARTSET 06110 06/29/202306/29, 06/29/2022, 01/07/2022, Additional history exists Depression Screening, Annual for Pts 12 and Over 08/05/2023 08/05/2022, 06/12/2018 Mammogram 02/12/2024 02/11/2022, 01/0 02/2021, 07/10/2019, [...] Documents on File Type Date Recorded Patient Ground Support Agent Expl anation POLST 03/19/2020 4:25 PM [...] the patient have Health Care Power of Ride Operator? No Healthcare Agents on File Name Relationship Healthcare Agent Relationship Communication Lexii Camp Other - (no specific identity) Health Care Power of Ride Operator Princess Allen Other - (no specific identity) Health Care Power of Ride Operator Care Teams Technical Internship Relationship Specialty Start Date End Date Lexii Andujar, DO [address] [place] [address] PCP - General Internal Medicine 01/07/22 documented as of this encounter
--- OUTSIDE RECORDS SUMMARY | 2023-06-01 04:24 | External Medical Summary | Summary of Care ---
Author Name Unknown Organization [place] [address] Care Team Providers Care Pharm Tech Name Role Phone Galdino Andujar DO Primary Care Provider [phone] Reason for Visit * Reason Onset Date Comments [facility]: Maintenance 08/24/2022 P ill pack coordination Encounter Details Date Type Department Care Team Description 08/24/2022 Scheduled Telephone [facility], [facility] [address] [facility] [place] [address] Brooke Jose, RN [address] [facility] [place] [address] Allergies Active Allergy Reactions Severity Noted Date Comments Codeine 07/08/2014 hallucination Pollen 05/18/2019 Heparin 09/04/2009 Heparin Induced Thrombocytopenia Hydrocodone Neuro complications (Please comment) 07/28/2020 Empagliflozin Other (Please comment) Medium 05/17/2018 3 yeast infections in 6 weeks after starting Morphine And Related 09/16/1997 Hallucinations Tetanus Toxoid Other (Please comment) 06/15/2011 Passed out documented as of this encounter (statuses as of 08/24/2022) Medications Medication Sig Dispensed Refills Start Date End Date Status ONETOUCH DELFRANTZ LANCETS 33G MISC Check blood sugars 3-4 times daily 180 Each 5 08/01/2018 Active oxygen GASIndications:ELISSA (obstructive sleep apnea) 2 lpm continuous 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:Siderographist 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 Abnormality of gait 02/02/[address] [place] [address] 08/19/2014 History of pulmonary [...] as of this encounter (statuses as of 08/24/2022) Resolved Problems Problem Noted Date Resolved Date [...] as of this encounter (statuses as of 08/24/2022) Immunizations Name Administration Dates Next Due COVID-19 mRNA, LNP-s, No Pre serve, 2-Dose Series ([employer]) 01/08/2021,12/18/2020 COVID-19, LNP-s, No Preserve , Navarro-sucrose, Ages 12+ (Pfizer) 2022,10/01/2021 Pneumococcal Conjugate Vacci ne, 20-valent ([id number]) 03/12/2022 Pneumococcal Polysaccharide PPV23 (Pneumovax) 08/22/2009,06/15/2006 Seasonal [...] Miscellaneous Notes * Telephone Encounter - Brooke Jose RN - 08/24/2022 9:59 AM EST Working towards pill packs from [facility]. Touched base with them today and they have only received two: Omeprazole and Dicyclomine Can you please send remaining scripts to pharmacy? Her med list is up to date Please reach out withany questions. Thank you, brooke documented in this encounter Plan of Treatment Upcoming Encounters Date Type Specialty Care Team Description 08/25/2022 Office Visit Pulmonary Nikita Sanchez MD [address] [place] [id number] 08/25/2022 [facility] Visit [facility] Brooke Jose RN [address] [facility] [place] [place] [address] 08/30/2022 Office Visit Family Medicine Galdino Andujar, DO [address] [place] [address] 09/13/2022 Office Visit Family Medicine Galdino Andujar, DO [address] [place] [address] 01/19/2023 PulmDiagnostic Pulmonary Function West, Pft [address] [facility] [place] [address] 08/08/2023 Nurse Only [employer]illary [employer], Nurse Annual Wellness Visit [address] [place] [address] Scheduled Procedures Name Priority Associated Diagnoses Date/Ti [...] Additional history exists CKD PHOS USE SMARTSET 38367 01/07/202312/25, 03/12/2021, 11/17/2020, Additional history exists DIABETES-FOOT EXAM 01/07/2023 01/07/2022, 0 01/14/2021, 11/07/2019, Additional history exists TSH FOR THYROID MEDICATION MONITORING YEARLY 01/07/2023 01/07/2022, 12/25/2020, 05/06/2020, Additional history exists GFR - Renal Function 02/10/2023 08/13/2022, 07/02/2022, 06/18/2022, Additional history exists DIABETES-EYE EXAM 05/24/2023 05/24/2022, , 04/07/2020, Additional history exists CKD HGB USE SMARTSET 65341 06/29/202306/29, 06/29/2022, 01/07/2022, Additional history exists Depression [...] Documents on File Type Date Recorded Patient Carry Out Clerk And Shelf Stocker Expl anation POLST 03/19/2020 4:25 PM POLST [...] have Health Care Power of Emergency Medical Technician Basic? No Healthcare Agents on File Name Relationship Healthcare Agent Relationship Communication Galdino Camp Other - (no specific identity) Health Care Power of Emergency Medical Technician Basic Princess Other - (no specific identity) Health Care Power of Emergency Medical Technician Basic Care Teams Pharm Tech Relationship Specialty Start Date End Date Galdino Andujar, DO [address] [place] [address] PCP - General Internal Medicine 01/07/22 documented as of this encounter
--- OUTSIDE RECORDS SUMMARY | 2023-06-01 04:24 | External Medical Summary | Summary of Care ---
Author Name Unknown Organization [place] [address] Care Team Providers Care Smoking Pipes Cleaner Name Role Phone ZiaandrewsGaldino DO Primary Care Provider [phone] Encounter Details Date Type Department Care Team Description 08/25/2022 Home Visit [facility], [facility] [address] [facility] [place] [address] Brooke Jose RN [address] [place] [address] Allergies Active Allergy Reactions Severity Noted Date Comments Codeine 07/08/2014 hallucination Pollen 05/18/2019 Heparin 09/04/2009 Heparin Induced Thrombocytopenia Hydrocodone Neuro complications (Please comment) 07/28/2020 Empagliflozin Other (Please comment) Medium 05/17/2018 3 yeast infections in 6 weeks after starting Morphine And Related 09/16/1997 Hallucinations Tetanus Toxoid Other (Please comment) 06/15/2011 Passed out documented as of this encounter (statuses as of 08/26/2022) Medications Medication Sig Dispensed Refills Start Date End Date Status ONEOBEYUCH DELICA LANCETS 33G MISC Check blood sugars 3-4 times daily 180 Each 5 08/01/2018 Active oxygen GASIndications:ELISSA (obstructive sleep apnea) 2 lpm continuous 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: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 121 mL 3 11/04/2021 Active Tresiba FlexTouch 100 UNIT/ML Subcutaneous Solution Pen-injector (Insulin Degludec)Indications :Type 2 diabetes mellitus with hemoglobin A1c goal of 7.0%-8.0% ([facility]) INJECT 60 UNITS UNDER [...] AT BEDTIME NEEDED FOR SPASM 30 Tablet 08/25/2022 Active DULoxetine HCl 60 MG Oral Capsule Delayed Release Particles (Cymbalta)Indication s:Fibromyalgia,Moder ate episode of recurrent major depressive disorder (HCC),Primary osteoarthritis of both knees Take 1 Capsule (60 mg) by mouth in the morning. Take 1 capsule daily. 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 45 Tablet 08/25/2022 Active Gabapentin 100 MG Oral Capsule (Neurontin)Indicatio ns:Fibromyalgia,Rest less legs syndrome Take 2 Capsules (200 mg) by mouth at bedtime. 60 Capsule 08/25/2022 Active Levothyroxine Sodium 200 MCG Oral Tablet (Levoxyl)Indications :Postsurgical hypothyroidism TAKE ONE TABLET BY MOUTH IN THE MORNING AT LEAST 30 MINUTES PRIOR TO BREAKFAST OR OTHER MEDS 30 Tablet 08/25/2022 Active Levothyroxine Sodium 50 MCG Oral Tablet (Levoxyl)Indications :Hyperparathyroidism , secondary renal (HCC) Take 1 Tablet (50 mcg) by mouth in the morning. (at least 30 min prior to breakfast or other meds). 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 60 Capsule 08/25/2022 Active metFORMIN HCl ER 500 MG Oral Tablet Extended Release 24 Hour (Glucophage XR)Indications:Type 2 diabetes mellitus with hemoglobin A1c goal of less than 8.0% (HCC) Take 1 Tablet (500 mg) by mouth in the morning. 30 Tablet 08/25/2022 Active Nortriptyline HCl 50 MG Oral Capsule (Pamelor)Indications :Fibromyalgia Take 1 Capsule (50 mg) by mouth [...] for Nausea. 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 Abnormality of gait 02/02/[address] [place] [address] 08/19/2014 History of pulmonary [...] as of this encounter (statuses as of 08/26/2022) Resolved Problems Problem Noted Date Resolved Date [...] as of this encounter (statuses as of 08/26/2022) Immunizations Name Administration Dates Next Due COVID-19 mRNA, LNP-s, No Pre serve, 2-Dose Series ([employer]) 01/08/2021,12/18/2020 COVID-19, LNP-s, No Preserve , Navarro-sucrose, Ages 12+ (Pfizer) 2022,10/01/2021 Pneumococcal Conjugate Vacci ne, 20-valent ([id number]) 03/12/2022 Pneumococcal Polysaccharide PPV23 (Pneumovax) 08/22/2009,06/15/2006 Seasonal [...] Taken Comments Blood Pressure - - Pulse 100 08/25/2022 4:36 PM EST Temperature - - Respiratory Rate - - Oxygen Saturation 95% 08/25/2022 4:36 PM EST 3lnc Inhaled Oxygen Concentration - - Weight - - Height - - Body Mass Index - - documented in this encounter Progress Notes * Brooke Jose RN - 08/25/2022 9:22 AM EST [facility] Furniture Installer Monthly Visit Date: 08/25/2022 Time: 9:22 AM Name: Stephanie Camp : 1955 Situation: Return for pill box fill for pill pack coordination Background: [facility] Enrollment Date: 06/14/22- Focused Care (3-9 months) PMHx: Frank filter, CHF, CHF, DVT, venous insufficiency, vasculitis, CAD, carotid stenosis, chronic hypoxemic respiratory failure, ELISSA, o2 dependent, GERD, DM, Hx PE, spinal stenosis Utilization: 07/16 - - [facility] Admission - falls, acute on chronic CHF, acute on chronic respiratory failure,cellulitis R hand d/t cat bite 07/29 - 03/17 - [facility] - acute on chronic resp fx with hypoxia, UTI, chronic diastolic HF, d/c home on doxycycline and cefdinir 08/04 and 08/25/22 - scheduled for cataract surgeries Assessment: Visit today to fill pill box and take meds to [facility] in preparation for pill packs Did not see Dr. Sanchez today - she cancelled b/c PFT's were moved out to December - will have scheduling reschedule after testing Wearing 3lnc at time of visit b/c has been ''cleaning'' Usually wears o2 2lnc but increases to 3lnc with activity States feeling ''good'' Breathing at baseline Hands-on assessment deferred today as visit for pill box fill and pt feeling well today Routine pills transported to [facility] Prn meds including oxycodone left in home with pt Spoke with Laverne at \\ They have rec'd all scripts for pt Plans for delivery of pill packs for pt next week prior to pill box being empty Physical Exam: [facility] 03/11/2003 Problems/Symptoms: Medication Reconciliation: (See medication list) Does patient take medications as ordered: Yes Patient Well Being: No change in living situation [facility] Completed this Visit: No. Routine visit and No falls since last visit Reinforcement/Education: Educated on home safety: Create a [...] medication regimen. Timing., Dosing. and Purspose. Treatment/Plan: DRY WT as of 08/03/22 - 313lbs Weigh daily and record 07/23/22 - working towards pill packs with [facility] Frequent UTI's - typically asymptomatic until has fever, has standing order for urine culture Ambulate with roller walker at ALL times o2 2lnc at rest, 4Lnc with activity - [facility] [phone] WEAR O2 AT ALL TIMES OR BECOMES [...] Increased sob Pt need Dexascan in future Home Interventions Provided: Home Intervention: Other; pill box fill, transport of pill bottles to pharmacy Reinforced current Plan of Care, including self-management and medication regimen Updated Advanced Care Planning Note Patient Needs to Remember: Call [facility] with red flags Referrals Needed: none Follow [...] visits & schedule home visit with care freight team associate(s)as indicated. Provider is in agreement with Plan of Care: Yes Scheduled to follow up with patient 09/21/22 - has apts with PCP x 2 prior to this apt. Brooke Jose RN 08/25/2022 9:22 AM documented in this encounter Plan of Treatment Upcoming Encounters Date Type Specialty Care Team Description 08/30/2022 Office Visit [facility]dujar[facility] [address] [facility] [address] 09/13/2022 Office Visit Family Medicine [facility]dino Andujar[facility] [address] [facility] [address] 09/21/2022 [facility] [address] 01/19/2023 PulmDiagnostic Pulmonary Function [place], Pft [address] [facility] [place] [address] 08/08/2023 Nurse Only [employer], Nurse Annual Wellness Visit [address] [facility] [address] Scheduled Procedures Name Priority Associated Diagnoses Date/Ti [...] Additional history exists CKD PHOS USE SMARTSET 65609 01/07/202312/25, 03/12/2021, 11/17/2020, Additional history exists DIABETES-FOOT EXAM 01/07/2023 01/07/2022, 0 01/14/2021, 11/07/2019, Additional history exists TSH FOR THYROID MEDICATION MONITORING YEARLY 01/07/2023 01/07/2022, 12/25/2020, 05/06/2020, Additional history exists GFR - Renal Function 02/10/2023 08/13/2022, 07/02/2022, 06/18/2022, Additional history exists DIABETES-EYE EXAM 05/24/2023 05/24/2022, , 04/07/2020, Additional history exists CKD HGB USE SMARTSET 33633 06/29/202306/29, 06/29/2022, 01/07/2022, Additional history exists Depression [...] Documents on File Type Date Recorded Patient Registered Art Therapist Expl anation POLST 03/19/2020 4:25 PM POLST [...] patient have Health Care Power of General Ledger Bookkeeper? No Healthcare Agents on File Name Relationship Healthcare Agent Relationship Communication Galdino Camp Other - (no specific identity) Health Care Power of General Ledger Bookkeeper Princess Staplesfany Other - (no specific identity) Health Care Power of General Ledger Bookkeeper Care Teams Smoking Pipes Cleaner Relationship Specialty Start Date End Date Galdino Andujar, DO [address] [place] [address] PCP - General Internal Medicine 01/07/22 documented as of this encounter
--- OUTSIDE RECORDS SUMMARY | 2023-06-01 04:24 | External Medical Summary | Summary of Care ---
Author Name Unknown Organization [place] [address] Care Team Providers Care Dock Superintendent Name Role Phone Galdino Andujar DO Primary Care Provider [phone] Reason for Visit * Reason Comments Follow Up Encounter Details Date Type Department Care Team Description 08/30/2022 Office Visit Family Practice [address] [place] [address] [place] [id number] Galdino Andujar DO [address] [place] [address] 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 3b chronic kidney disease (HCC)*; Type 2 diabetes mellitus with stage 3b chronic kidney disease, with long-term current use of insulin (HCC); Recurrent deep vein thrombosis (DVT) of both lower extremities (HCC); Chronic hypoxemic respiratory failure ([facility]); ILD (interstitial lung disease) ([facility]); Moderate episode of recurrent major depressive disorder ([facility]); Hyperparathyroidism, secondary renal ([facility]); Gastroesophageal reflux disease with esophagitis without hemorrhage; Restless legs syndrome; Spinal stenosis of lumbar region without neurogenic claudication; Heparin 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); Atherosclerosis of [place] coronary artery of [place] heart without angina pectoris; Primary osteoarthritis of both knees; Abnormality of gait; Dyslipidemia; Statin intolerance; Fibromyalgia; History of pulmonary embolus (PE); Frank filter in place Allergies Active Allergy Reactions Severity Noted Date [...] as of this encounter (statuses as of 09/02/2022) Medications Medication Sig Dispensed Refills Start Date [...] skin weekly 6 mL 5 2 Active NovoLOG FlexPen 100 UNIT/ML Subcutaneous Solution Pen-injector (insulin aspart)Indications :Type 2 diabetes mellitus with hemoglobin A1c goal of 7.0%-8.0% (HCC) Inject 40 units with meals + sliding scale 1 units for every 25 units BG > 150. 121 mL 3 2 Active Tresiba FlexTouch 100 UNIT/ML Subcutaneous Solution Pen-injector (Insulin Degludec)Indicatio ns:Type 2 diabetes mellitus with hemoglobin A1c goal of 7.0%-8.0% (HCC) INJECT 60 UNITS UNDER THE SKIN EVERY MORNING 60 mL 3 2 Active Additional Information Patient taking differently: INJECT 60 UNITS UNDER THE SKIN IN THE EVENING, Reported on 08/03/2022 oxyCODONE-Acetamin ophen 5-325 MG Oral Tablet (Percocet)Indicati ons:Lumbar radiculopathy,Spin al stenosis of lumbar region without neurogenic claudication Take by mouth 1 Tablet every 12 hours as needed for Pain, Severe. 60 Tablet 0 2 Active clonazePAM 0.5 MG Oral Tablet (KlonoPIN)Indicati ons:Anxiety state Take 1 Tablet (0.5 mg) by mouth in the morning and 1 Tablet (0.5 mg) before bedtime. 60 Tablet 0 2 Active Apixaban 5 [...] capsule daily. 30 Capsule 5 2 Active Furosemide 40 MG Oral Tablet (Lasix)Indications :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, NYHA class 1 and CKD stage 3 (HCC),Chronic diastolic congestive heart failure (HCC) Take 1.5 Tablets (60 mg) by mouth in the morning and 1.5 Tablets (60 mg) before bedtime. 45 Tablet 5 2 Active Gabapentin 100 MG Oral Capsule (Neurontin)Indicat ions:Fibromyalgia, Restless legs syndrome Take 2 Capsules (200 mg) by mouth at bedtime. 60 Capsule 5 2 Active Magnesium Oxide 400 [...] goal of less than 8.0% ([facility]) Take 1 Tablet (500 mg) by mouth in the morning. 30 Tablet 5 2 Active Omeprazole 20 MG Oral Capsule Delayed ReleaseIndications [...] before bedtime. 60 Tablet 5 2 Active traZODone HCl 50 MG Oral Tablet [...] for Nausea. 90 Tablet 6 2 Active Nortriptyline HCl 25 MG Oral Capsule (Pamelor)Indicatio ns:Moderate episode of recurrent major depressive disorder (HCC),Fibromyalgia Take 1 Capsule (25 mg) by mouth at bedtime. 30 Capsule 3 2 Active Baclofen 5 MG Oral Tablet (Lioresal)Indicati ons:Fibromyalgia Take 1 Tablet (5 mg) by mouth 2 times a day as needed for Muscle spasms. 60 Tablet 1 2 Active Cyclobenzaprine HCl 10 MG Oral Tablet (Flexeril)Indicati ons:Spinal stenosis of lumbar region without neurogenic claudication,Lumba r radiculopathy TAKE ONE TABLET BY MOUTH AT BEDTIME NEEDED FOR SPASM 30 Tablet 5 2 Discontinued(Jaun witt preference/disc ontinuation) Levothyroxine Sodium 200 MCG Oral Tablet (Levoxyl)Indicatio ns:Postsurgical hypothyroidism TAKE ONE TABLET BY MOUTH IN THE MORNING AT LEAST 30 MINUTES PRIOR TO BREAKFAST OR OTHER MEDS 30 Tablet 5 2 Discontinued(Re fill) Levothyroxine Sodium 50 MCG Oral Tablet (Levoxyl)Indicatio ns:Hyperparathyroi dism, secondary renal (HCC) Take 1 Tablet (50 mcg) by mouth in the morning. (at least 30 min prior to breakfast or other meds). 30 Tablet 5 2 Discontinued Nortriptyline HCl 50 MG Oral Capsule (Pamelor)Indicatio ns:Fibromyalgia Take 1 Capsule (50 mg) by mouth at bedtime. 30 Capsule 5 2 Discontinued(Me dication/Dose Changed) documented as of this encounter (statuses as of 09/02/2022) Active Problems Problem Noted Date ILD (interstitial lung disease) 08/11/20 22 Last Assessment & Plan: Followed by pulm Stable today Moderate episode of recurrent major depr essive disorder 08/11/2022 Last Assessment & Plan: Stable today Continue duloxetine Primary osteoarthritis of both knees Last Assessment & Plan: Declines PT, reports it causes too much pain. Following with orthopedics Chronic kidney disease, stage 3b Overview: Per CKD protocol Encounter for long-term [...] 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/31/2021 Atherosclerosis of [place] coronary arter 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 12/31/2021 [...] as of this encounter (statuses as of 09/02/2022) Resolved Problems Problem Noted Date Resolved Date [...] as of this encounter (statuses as of 09/02/2022) Immunizations Name Administration Dates Next Due COVID-19 mRNA, LNP-s, No Pre serve, 2-Dose Series (Pfizer) 01/08/2021,12/18/2020 COVID-19, LNP-s, No Preserve , Navarro-sucrose, Ages 12+ (Pfizer) 2022,10/01/2021 Pneumococcal Conjugate Vacci ne, 20-valent ([id number]) 03/12/2022 Pneumococcal Polysaccharide PPV23 (Pneumovax) 08/22/2009,06/15/2006 Seasonal [...] as of this encounter Progress Notes * Galdino Andujar, - 09/02/2022 2:16 PM EST SUBJECTIVE: Stephanie Camp is a 67 year old female. Chief Complaint Patient presents with Follow Up HPI: Patient is a 67 year old female with a history of DM type II, CKD stage III, Diastolic CHF, chronichypoxic respiratory failure, HTN, recurrent DVT, IVC filter, Hyperlipidemia, statin intolerance, GERD, lumbar disc disease, restless leg syndrome, Sleep Apnea on CPAP, Heparin Induced Thrombocytopenia, and Ambulatory Dysfunction that is seen for follow up. The patient has worsening back pain recently. Back spasms are present. No chest pain is present. Chronic shortness of breath is stable. Gabapentin was reduced at last visit. Patient Active Problem List [...] signed [id number] Chronic diastolic congestive heart failure ([facility]) I50.32 Lumbar radiculopathy M54.16 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 [id number] chronic kidney disease ([facility]) I13.0, I50.32, N18.32 Hyperparathyroidism, secondary renal ([facility]) N25.81 Vasculitis ([facility]) I77.6 Primary osteoarthritis of left knee M17.12 Spinal stenosis of lumbar region without neurogenic claudication M48.061 Heparin 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) D75.829 Atherosclerosis of [place] coronary arter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 I25.10 Carotid artery stenosis, asymptomatic, right I65.21 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 Encounter for long-term (current) use of other medications Z79.899 Type 2 diabetes mellitus with stage 3b chronic kidney disease ([facility]) E11.22, N18.32 Type 2 diabetes mellitus with hemoglobin A1c goal of less than 8.0% ([facility]) E11.9 Recurrent deep vein thrombosis (DVT) of both lower extremities ([facility]) I82.403 Chronic hypoxemic respiratory failure ([facility]) J96.11 Chronic kidney disease, stage 3b ([facility]) N18.32 ILD (interstitial lung disease) ([facility]) J84.9 Moderate episode of recurrent major depressive disorder ([facility]) F33.1 Primary osteoarthritis of both knees M17.0 Current Outpatient Medications Medication Sig Dispense Refill Acetaminophen 500 MG Oral Tablet Take 500 mg by mouth every 6 hours as needed. Trulicity 4.5 MG/0.5ML Subcutaneous Solution Pen-injector (Dulaglutide) [...] needed for Pain, Severe. 60 Tablet 0 clonazePAM 0.5 MG Oral Tablet (KlonoPIN) Take 1 Tablet (0.5 mg) by mouth in the morning and 1 Tablet (0.5 mg) before bedtime. 60 Tablet 0 Apixaban 5 MG Oral [...] Take 1 capsule daily. 30 Capsule 5 Furosemide 40 MG Oral Tablet (Lasix) Take 1.5 Tablets (60 mg) by mouth in the morning and 1.5 Tablets (60 mg) before bedtime. 45 Tablet 5 Gabapentin 100 MG Oral Capsule (Neurontin) [...] as needed for Nausea. 90 Tablet 6 Nortriptyline HCl 25 MG Oral Capsule (Pamelor) Take 1 Capsule (25 mg) by mouth at bedtime. 30 Capsule 3 Baclofen 5 MG Oral Tablet (Lioresal) Take 1 Tablet (5 mg) by mouth 2 times a day as needed for Muscle spasms. 60 Tablet 1 Novoc[employer] Medical Systems[employer]OV[employer] DELICA LANCETS 33G [facility] Check blood sugars 3-4 times daily 180 Each 5 oxygen GAS 2 lpm continuous DIURETIC TITRATION PLAN If no improvement on day 3, contact heart failure managing provider. 1 Each 0 Blood Glucose Monitoring Suppl (Novocor Medical SystemsTOUCH ULTRA 2) w/Device KIT Use to test BG values 1 Kit 0 CPAP every night at bedtime. BD Pen Needle Short U/F 31G X 8 MM (Insulin Pen Needle) use five times daily 500 Each 3 OneTouch Ultra Blue In Vitro Strip (Glucose Blood) Check sugars 3-4 times daily, E11.9 400 Strip 3 Levothyroxine Sodium 50 MCG Oral Tablet (Levoxyl) TAKE 1 TABLET BY MOUTH DAILY AT LEAST 30 MINUTES PRIOR TO FIRST MEAL OF THE DAY OR OTHER MEDICATIONS 100 Tablet 1 Levothyroxine Sodium 200 MCG Oral Tablet (Levoxyl) TAKE ONE TABLET BY MOUTH IN THE MORNING AT LEAST 30 MINUTES PRIOR TO BREAKFAST OR OTHER MEDS 100 Tablet 1 No current facility-administered medications for this visit. The patient's medication list was reviewed and updated as needed. Past Medical History: Diagnosis Date ELSIE (acute kidney injury) (HCC) 06/12/2018 Allergic rhinitis due to other allergen Chronic hypoxemic respiratory failure ([facility]) 01/07/2022 Diverticulosis of colon 01/28/2006 Essential hypertension with goal blood pressure less than 140/90 02/22/2014 ELLIE (generalized anxiety disorder) 09/13/2009 Goiter [address] filter in place 08/19/2014 Heparin-induced thrombocytopenia 08/22/2009 History of pulmonary embolus (PE) 07/16/2014 HTN, goal below 140/90 Impetigo 09/27/2018 Obesity, BMI not known Perforation of intestine ([facility]) 1996 COLON -- 1996 Pneumonia in aspergillosis(484.6) 09/14/2009 Recurrent deep vein thrombosis (DVT) of both lower extremities (HCC) 01/07/2022 Sleep apnea, obstructive Spinal stenosis of lumbar region without neurogenic claudication 07/15/2020 Spontaneous pneumothorax 09/14/2009 Statin intolerance 07/16/2014 Type 2 diabetes mellitus with hemoglobin A1c goal of less than 8.0% (HCC) 01/07/2022 Past Surgical History: Procedure Laterality Date ARTHROPLASTY KNEE TOTAL Right 07/24/14 R COLONOSCOPY, DIAGNOSTIC (RECTUM) 02/18/2016 normal, repeat 10 yrs/[facility] COLONOSCOPY, GI REFERRAL OP 01/28/06 diverticulosis--repeat 10 years INCISION OF [place], PLANNED 06/03/2011 TRACHEOSTOMY PLANNED performed [place] D[place] [facility] DX/THER SUBSTANCE INTERLAMINAR LUMBAR/SACRAL W IMAGE GUIDE 05/26/2020 INJECTION SPINE LUMBAR OR SACRAL performed by Raj Ahn DO at OR [facility] INJECT DX/THER SUBSTANCE INTERLAMINAR LUMBAR/SACRAL W IMAGE GUIDE 05/14/2021 INJECTION SPINE LUMBAR OR SACRAL performed by Raj Ahn DO at OR [facility] INJECT DX/THER SUBSTANCE INTERLAMINAR LUMBAR/SACRAL W IMAGE GUIDE 08/13/2021 INJECTION SPINE LUMBAR OR SACRAL performed by Raj Ahn DO at OR [facility] KNEE ARTHROSCOPY/DEBRIDEMENT 07/[address] PERMANENT GASTROSTOMY TUBE 09/06/09 GASTROSTOMY WITH CONSTUCTION GASTRIC TUBE performed by AMADOU NUNEZ at [facility] REMOVAL OF THYROID GLAND 06/15/2011 THYROIDECTOMY INCLUDING SUBSTERNAL THYROID CERVICAL APPROACH performed by DANNY HOLDER [place] [facility] REMOVE GALLBLADDER 09/06/09 CHOLECYSTECTOMY performed by AMADOU NUNEZ [place] [facility] REPAIR RECURRENT INCISIONAL HERNIA 1998 REVISION OF COLOSTOMY, SIMPLE 1998 SACROILIAC JOINT INJECT W/GUIDANCE 07/28/2020 INJECTION SACROILIAC JOINT performed by Raj Ahn DO at OR [facility] SACROILIAC JOINT INJECT W/GUIDANCE 03/03/2022 INJECTION SACROILIAC JOINT performed by Raj Ahn DO at OR [facility] SUTURE, LARGE INTESTINE W/COLOSTOMY 1996 perforation R colon with colostomy VENA CAVA FILTER/LIGATION/CLIP 08/19/09 [place] filter placement through the right femoral 08/19/09 [...] arthralgias, back pain, gait problem and myalgias. Neurological: Negative for dizziness, syncope and headaches. Psychiatric/Behavioral: Negative for confusion, decreased concentration and sleep disturbance. OBJECTIVE: BP (P) 138/84 | Pulse (P) 98 | Temp (P) 36.5 C (97.7 F) | Ht (P) 1.651 m (5' 5") | Wt (!) (P) 144.6 kg (318 lb 11.2 oz) | LMP 03/11/2003 | SpO2 (P) 98% | BMI (P) 53.03 kg/m | BSA (P) 2.58 m Physical Exam Vitals and nursing [...] and time. Mental status is at baseline. Psychiatric: Mood and Affect: Mood normal. Behavior: Behavior normal. Thought Content: Thought content normal. PLAN AND ASSESSMENT: 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 3b chronic kidney disease (HCC) (Primary) Continue Furosemide, and Metolazone Type 2 diabetes mellitus with stage 3b chronic kidney disease, with long-term current use of insulin (HCC) Continue Metformin, Trulicity Recurrent deep vein thrombosis (DVT) of both lower extremities (HCC) Continue Apixaban Chronic hypoxemic respiratory failure (HCC) ILD (interstitial lung disease) (HCC) Moderate episode of recurrent major depressive disorder (HCC) - Decrease Nortriptyline HCl 25 MG Oral Capsule (Pamelor); Take 1 Capsule (25 mg) by mouth at bedtime. Continue Duloxetine Consider increasing Trazodone at next visit Hyperparathyroidism, secondary renal (HCC) Gastroesophageal reflux disease with esophagitis without hemorrhage Continue Omeprazole Restless legs syndrome Continue Clonazepam Will continue to decrease gabapentin Spinal stenosis of lumbar region without neurogenic claudication Continue Oxycodone Heparin 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) Atherosclerosis of [place] coronary artery of [place] heart without angina pectoris Primary osteoarthritis of both knees Abnormality of gait Dyslipidemia Statin intolerance Fibromyalgia - Nortriptyline HCl 25 MG Oral Capsule (Pamelor); Take 1 Capsule (25 mg) by mouth at bedtime. - Baclofen 5 MG Oral Tablet (Lioresal); Take 1 Tablet (5 mg) by mouth 2 times a day as needed for Muscle spasms. History of pulmonary embolus (PE) [place] filter in place Galdino Andujar DO 2:16 PM 09/02/2022 documented in this encounter Plan of Treatment Upcoming Encounters Date Type Specialty Care Team Description 09/13/2022 Office Visit Family Medicine Galdino Andujar DO [address] [facility], [place] [address] 09/13/2022 Office Visit [facility] Pharmacist [address] [facility], [place] [address] 09/21/2022 Home Visit [facility] Brooke Jose, RN [address] [facility] [place] [address] 01/19/2023 PulmDiagnostic Pulmonary Function [place], [address] [place] [address] 08/08/2023 Nurse Only [employer], Nurse Annual Wellness Visit [address] [place] [address] Scheduled Procedures Name Priority Associated Diagnoses Date/Ti [...] Additional history exists CKD PHOS USE SMARTSET 38872 01/07/2023 0412/2021, 03/12/2021, 11/17/2020, Additional history exists DIABETES-FOOT EXAM 01/07/2023 01/07/2022, 0 01/14/2021, 11/07/2019, Additional history exists TSH FOR THYROID MEDICATION MONITORING YEARLY 01/07/2023 01/07/2022, 12/25/2020, 05/06/2020, Additional history exists GFR - Renal Function 02/10/2023 08/13/2022, 07/02/2022, 06/18/2022, Additional history exists DIABETES-EYE EXAM 05/24/2023 05/24/2022, , 04/07/2020, Additional history exists CKD HGB USE SMARTSET 18659 06/29/202306/29, 06/29/2022, 01/07/2022, Additional history exists Mammogram [...] episode of recurrent major depressive disorder (HCC) Hyperparathyroidism, secondary renal (HCC) Secondary hyperparathyroidism (of renal origin) Gastroesophageal reflux disease with esophagitis without hemorrhage Restless legs syndrome Restless legs syndrome (RLS) Spinal stenosis of lumbar region without neurogenic claudication Spinal stenosis, lumbar region, without neurogenic claudication Heparin 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) 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) Atherosclerosis of [place] coronary artery of [place] heart without angina pectoris Primary osteoarthritis of both knees Primary localized osteoarthrosis, lower leg Abnormality of gait Dyslipidemia Other and unspecified hyperlipidemia Statin intolerance Other drug allergy Fibromyalgia Mylagia and myositis, unspecified History of pulmonary embolus (PE) Personal history of pulmonary embolism Frank filter in place Other postprocedural status documented in this encounter Advance Directives Documents on File Type Date Recorded Patient Manager Life Expl anation POLST 03/19/2020 4:25 PM POLST [...] the patient have Health Care Power of Design Painter? No Healthcare Agents on File Name Relationship Healthcare Agent Relationship Communication Galdino Camp Other - (no specific identity) Health Care Power of Design Painter Princess Allen Other - (no specific identity) Health Care Power of Design Painter Care Teams Dock Superintendent Relationship Specialty Start Date End Date Galdino Andujar, DO [address] [place] [address] PCP - General Internal Medicine 01/07/22 documented as of this encounter
--- OUTSIDE RECORDS SUMMARY | 2023-06-01 04:24 | External Medical Summary | Summary of Care ---
Author Name Unknown Organization [place] [address] Care Team Providers Care Copping Machine Operator Name Role Phone Lexii Andujar DO Primary Care Provider [phone] Reason for Visit * Reason Comments eRx-Medication Refill Encounter Details Date Type Department Care Team Description 08/30/2022 Refill Family Practice [address] [place] [address] [place] [id number] Lexii Andujar DO [address] [place] [address] Spinal stenosis of lumbar region without neurogenic claudication; Lumbar radiculopathy; Hyperparathyroidism, secondary renal (HCC); POSTSURGICAL HYPOTHYROID Allergies Active Allergy Reactions Severity Noted Date [...] as of this encounter (statuses as of 08/31/2022) Medications Medication Sig Dispensed Refills Start Date End Date Status ONETOUCH DELICA LANCETS 33G MISC Check blood sugars 3-4 times daily 180 Each 5 8 Active oxygen GASIndications:ELISSA (obstructive sleep apnea) 2 lpm continuous 0 03/04/202 0 Active DIURETIC TITRATION PLANIndications:Ch ronic diastolic [...] hemoglobin A1c goal of 7.0%-8.0% ([facility]) Inject 40 units with meals + sliding scale 1 units for every 25 units BG > 150. 121 mL 3 2 Active Tresiba FlexTouch 100 UNIT/ML Subcutaneous Solution Pen-injector (Insulin Degludec)Indicatio ns:Type 2 diabetes mellitus with hemoglobin A1c goal of 7.0%-8.0% ([facility]) INJECT 60 UNITS UNDER THE SKIN EVERY [...] goal of less than 8.0% ([facility]) Take 1 Tablet (500 mg) by mouth [...] OTHER MEDS 100 Tablet 1 2 Active Levothyroxine Sodium 200 MCG Oral Tablet (Levoxyl)Indicatio ns:Postsurgical hypothyroidism TAKE ONE TABLET BY MOUTH IN THE MORNING AT LEAST 30 MINUTES PRIOR TO BREAKFAST OR OTHER MEDS 30 Tablet 5 2 022 Discontinued(Re fill) Levothyroxine Sodium 50 MCG Oral Tablet (Levoxyl)Indicatio ns:Hyperparathyroi dism, secondary renal (HCC) Take 1 Tablet (50 mcg) by mouth in the morning. (at least 30 min prior to breakfast or other meds). 30 Tablet 5 2 Discontinued documented as of this encounter (statuses as of 08/31/2022) Active Problems Problem Noted Date ILD (interstitial [...] thrombocytopenia (HIT) 0 12/31/2021 Atherosclerosis of lower [place] coronary arter 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 12/31/2021 [...] as of this encounter (statuses as of 08/31/2022) Resolved Problems Problem Noted Date Resolved Date [...] as of this encounter (statuses as of 08/31/2022) Immunizations Name Administration Dates Next Due COVID-19 mRNA, LNP-s, No Pre serve, 2-Dose Series (Devicescape) 01/08/2021,12/18/2020 COVID-19, LNP-s, No Preserve , Navarro-sucrose, Ages 12+ (Pfizer) 2022,10/01/2021 Pneumococcal Conjugate Vacci ne, 20-valent ([id number]) 03/12/2022 Pneumococcal Polysaccharide PPV23 (Pneumovax) 08/22/2009,06/15/2006 Seasonal [...] encounter Miscellaneous Notes * Telephone Encounter - Rebecca Starr, [facility] - 08/31/2022 4:50 PM ESTSigned Prescriptions: Disp Refills Levothyroxine Sodium 50 MCG Oral Tablet (L*100 Ta*1 Sig: TAKE 1 TABLET BY MOUTH DAILY AT LEAST 30 MINUTES PRIOR TO FIRST MEAL OF THE DAY OR OTHER MEDICATIONSAuthorizing Provider: LEXII ANDUJAR User: REBECCA STARR Levothyroxine Sodium 200 MCG Oral Tablet (*100 Ta*1 Sig: TAKE ONE TABLET BY MOUTH IN THE MORNING AT LEAST 30 MINUTESPRIOR TO BREAKFAST OR OTHER MEDSAuthorizing Provider: LEXII ANDUJAR User: REBECCA STARR WRefused Prescriptions: Disp Refills Cyclobenzaprine HCl 10 MG Oral Tablet (Fle*90 Tab*3 Sig: TAKEONE TABLET BY MOUTH AT BEDTIME NEEDED FOR SPASMRefused By: REBECCA STARR WReason for Refusal:Course of treatment complete documented in this encounter Plan of Treatment Upcoming Encounters Date Type Specialty Care Team Description 09/13/2022 Office Visit Family Medicine Lexii Andujar, [address] [place] [address] 09/13/2022 Office Visit [facility], Pharmacist [address] [address] 09/21/2022 Home Visit [facility] Brooke Jose RN 132 [facility] [place] [address] 01/19/2023 PulmDiagnostic Pulmonary Function West, Pft 132 [facility] [place] [address] 08/08/2023 Nurse Only [facility], Nurse Annual Wellness Visit [address] [address] Scheduled Procedures Name Priority Associated Diagnoses Date/Ti [...] Additional history exists CKD PHOS USE SMARTSET 90530 01/07/202312/25, 03/12/2021, 11/17/2020, Additional history exists DIABETES-FOOT EXAM 01/07/2023 01/07/2022, 0 01/14/2021, 11/07/2019, Additional history exists TSH FOR THYROID MEDICATION MONITORING YEARLY 01/07/2023 01/07/2022, 12/25/2020, 05/06/2020, Additional history exists GFR - Renal Function 02/10/2023 08/13/2022, 07/02/2022, 06/18/2022, Additional history exists DIABETES-EYE EXAM 05/24/2023 05/24/2022, , 04/07/2020, Additional history exists CKD HGB USE SMARTSET 51041 06/29/202306/29, 06/29/2022, 01/07/2022, Additional history exists Mammogram [...] as of this encounter Visit Diagnoses Diagnosis Spinal stenosis of lumbar region without neurogenic claudication Spinal stenosis, lumbar region, without neurogenic claudication Lumbar radiculopathy Thoracic or lumbosacral neuritis or radiculitis, unspecified Hyperparathyroidism, secondary renal (HCC) Secondary hyperparathyroidism (of renal origin) POSTSURGICAL HYPOTHYROID Postsurgical hypothyroidism documented in this encounter Advance Directives Documents on File Type Date Recorded Patient Business Analyst Manager Expl anation POLST 03/19/2020 4:25 PM [...] the patient have Health Care Power of Hand Sizer? No Healthcare Agents on File Name Relationship Healthcare Agent Relationship Communication Lexii Camp Other - (no specific identity) Health Care Power of Hand Sizer Princess Allen Other - (no specific identity) Health Care Power of Hand Sizer Care Teams Copping Machine Operator Relationship Specialty Start Date End Date Lexii Andujar, DO 293 [place] [address] PCP - General Internal Medicine 01/07/22 documented as of this encounter
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
--- OUTSIDE RECORDS SUMMARY | 2023-06-01 04:24 | External Medical Summary ---
Author Name Unknown Address Unknown Organization K01:[facility] - [address] [facility] [address] Laboratory Report Ordering Provider Test Date Status MICAHBRAD HAMEED 09/06/2022 12:40:00 Final Observation Date Value Abnormality Reference (Units ) Status Color of Urine by Auto 09/06/2022 12:40:00 Light Yellow Colorless, Light Yellow, Yellow, Dark Yellow Final Clarity, Urine 09/06/2022 12:40:00 Clear Clear Final Glucose [Mass/volume] in Urine by Automated test strip 09/06/2022 12:40:00 Negative Negative (mg/dL) Final Bilirubin.total [Presence] in Urine by Automated test strip 09/06/2022 12:40:00 Negative Negative Final Ketones [Mass/volume] in Urine by Automated test strip 09/06/2022 12:40:00 Negative Negative (mg/dL) Final Specific gravity, Urine 09/06/2022 12:40:00 1.011 1.003-1.030 Final Hemoglobin [Presence] in Urine by Automated test strip 09/06/2022 12:40:00 Negative Negative Final pH, Urine 09/06/2022 12:40:00 7.0 5.0-7.5 (Units) Final Protein [Mass/volume] in Urine by Automated test strip 09/06/2022 12:40:00 Negative Negative (mg/dL) Final Urobilinogen [Mass/volume] in Urine by Automated test strip 09/06/2022 12:40:00 Normal Normal (mg/dL) Final Nitrite [Presence] in Urine by Automated test strip 09/06/2022 12:40:00 Negative Negative Final Leukocyte esterase [Presence] in Urine by Automated test strip 09/06/2022 12:40:00 Trace Abnormal Negative Final RBC, Urine 09/06/2022 12:40:00 0-2 0-2 (/HPF) Final WBC, Urine 09/06/2022 12:40:00 6-9 Abnormal 0-2 (/HPF) Final Bacteria [#/area] in Urine sediment by Microscopy high power field 09/06/2022 12:40:00 0-25 0-25 (/HPF) Final CULTURE, URINE - MIKAYLA 09/06/2022 12:40:00 Final Performing Location [facility] [place] [facility] [address] [facility] [address]
--- OUTSIDE RECORDS SUMMARY | 2023-06-01 04:25 | External Medical Summary ---
Author Name Unknown Address Unknown Organization K0G:[facility] - [address] [place] [address] Laboratory Report Ordering Provider Test Date Status JAG SHULTZ 08/13/2022 09:02:00 Final Observation Date Value Abnormality Reference (Units ) Status BUN 08/13/2022 09:02:00 26 Above high normal 6-20 (mg/dL) Final Creatinine 08/13/2022 09:02:00 1.5 Above high normal 0.5-1.0 (mg/dL) Final Glomerular filtration rate/1.73 sq M.predicted [Volume Rate/Area] in Serum, Plasma or Blood by Creatinine-based formula (CKD-EPI) 08/13/2022 09:02:00 37 Below low normal >=60 (mL/min) Final Performing Location [facility]ORY [facility] 57-1 0 - [address] [place] [address]
--- OUTSIDE RECORDS SUMMARY | 2023-06-01 04:25 | External Medical Summary | Summary of Care ---
Author Name Unknown Organization [place] [address] Care Team Providers Care Green Feed Attendant Name Role Phone ZiaandrewsGaldino DO Primary Care Provider [phone] Reason for Visit * Reason Onset Date Comments [facility]: Maintenance 08/17/2022 Encounter Details Date Type Department Care Team Description 08/17/2022 Telephone [facility], [facility] 132 [facility] [place] [address] Brooke Jose, RN 132 [place] [address] [facility]: Maintenance Allergies Active Allergy Reactions Severity Noted Date Comments Codeine 07/08/2014 hallucination Pollen 05/18/2019 Heparin 09/04/2009 Heparin Induced Thrombocytopenia Hydrocodone Neuro complications (Please comment) 07/28/2020 Empagliflozin Other (Please comment) Medium 05/17/2018 3 yeast infections in 6 weeks after starting Morphine And Related 09/16/1997 Hallucinations Tetanus Toxoid Other (Please comment) 06/15/2011 Passed out documented as of this encounter (statuses as of 08/18/2022) Medications Medication Sig Dispensed Refills Start Date End Date Status ONETOUCH DELICA LANCETS 33G MISC Check blood sugars 3-4 times daily 180 Each 5 08/01/2018 Active oxygen GASIndications:ELISSA (obstructive sleep apnea) 2 lpm continuous 0 11/28/2019 Active omeprazole (PRILOSEC) 20 MG CPDR Take 1 Cap by mouth daily. 90 Cap 3 12/18/2019 Active Additional Information Patient not taking.Reported on 08/17/2022 DIURETIC TITRATION PLANIndications:Heel Sander 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 1 Each 0 04/08/2020 Active Blood Glucose Monitoring Suppl (ClickShiftTOUCH ULTRA 2) w/Device KIT Use to test [...] times daily 500 Each 3 11/04/2021 Active TraackrTouch Ultra Blue In Vitro Strip (Glucose Blood) [...] at bedtime. 200 Capsule 3 08/16/2022 Active documented as of this encounter (statuses as of 08/18/2022) Active Problems Problem Noted Date ILD (interstitial [...] percocet BID prn. Abnormality of gait 02/02/[address] 08/19/2014 History of pulmonary [...] as of this encounter (statuses as of 08/18/2022) Resolved Problems Problem Noted Date Resolved Date [...] as of this encounter (statuses as of 08/18/2022) Immunizations Name Administration Dates Next Due COVID-19 mRNA, LNP-s, No Pre serve, 2-Dose Series ([employer]) 01/08/2021,12/18/2020 COVID-19, LNP-s, No Preserve , Navarro-sucrose, Ages 12+ (Pfizer) 2022,10/01/2021 Pneumococcal Conjugate Vacci ne, 20-valent ([id number]) 03/12/2022 Pneumococcal Polysaccharide PPV23 (Pneumovax) 08/22/2009,06/15/2006 Seasonal [...] encounter Miscellaneous Notes * Telephone Encounter - Pop Greer [facility] - 08/18/2022 11:11 AM EST Brooke, I spoke with Stephanie on the phone. She usually gets her Prilosec OTC but would like to have it packaged in blister packs. She also said she wants to keep Bentyl on hand if she gets abdominal cramping. The [address] crew will need to send orders for these to [facility]. * Telephone Encounter - Brooke Jose RN - 08/17/2022 1:21 PM EST Pop, I saw pt today and filled her pill box. She reports she was instructed by you to stop her prilosec. She is having frequent heartburn since stopping. Also, since stopping Bentyl she reports having a lot of abdominal cramping. Can you please address these issues with pt and update med list? (is she to take Flexaril?) I am transitioning her to pill packs at [facility]. Can you please send new scripts for her? I am seeing her again next Tuesday for her last pill box fill. Please let me know if you have any questions. Thank you, brooke documented in this encounter Plan of Treatment Upcoming Encounters Date Type Specialty Care Team Description 08/24/2022 Home Visit [facility] Brooke Jose, RN [address] [place] [address] 08/25/2022 Office Visit Pulmonary Nikita Sanchez MD [address] [place] [address] 08/30/2022 Office Visit Family Medicine Galdino Andujar, DO [address] [place] [address] 09/13/2022 Office Visit Family Medicine Galdino Andujar, DO 293 [place] [address] 01/19/2023 PulmDiagnostic Pulmonary Function West, Pft [facility] [place] [address] 08/08/2023 Nurse Only [employer], Nurse Annual Wellness Visit [address] [place] [address] Scheduled Procedures Name Priority Associated Diagnoses Date/Ti [...] Additional history exists CKD PHOS USE SMARTSET 13530 01/07/202312/25, 03/12/2021, 11/17/2020, Additional history exists DIABETES-FOOT EXAM 01/07/2023 01/07/2022, 0 01/14/2021, 11/07/2019, Additional history exists TSH FOR THYROID MEDICATION MONITORING YEARLY 01/07/2023 01/07/2022, 12/25/2020, 05/06/2020, Additional history exists GFR - Renal Function 02/10/2023 08/13/2022, 07/02/2022, 06/18/2022, Additional history exists DIABETES-EYE EXAM 05/24/2023 05/24/2022, , 04/07/2020, Additional history exists CKD HGB USE SMARTSET 75720 06/29/202306/29, 06/29/2022, 01/07/2022, Additional history exists Depression [...] Documents on File Type Date Recorded Patient Punch Finisher Expl anation POLST 03/19/2020 4:25 PM POLST [...] the patient have Health Care Power of Sliver Former? No Healthcare Agents on File Name Relationship Healthcare Agent Relationship Communication Galdino aCmp Other - (no specific identity) Health Care Power of Sliver Former Princess Allen Other - (no specific identity) Health Care Power of Sliver Former Care Teams Green Feed Attendant Relationship Specialty Start Date End Date Galdino Andujar, DO [address] [place] [address] PCP - General Internal Medicine 01/07/22 documented as of this encounter
--- OUTSIDE RECORDS SUMMARY | 2023-06-01 04:25 | External Medical Summary | Summary of Care ---
Author Name Unknown Organization [place] [address] Care Team Providers Care Well Service Derrick Worker Name Role Phone Galdino Andujar DO Primary Care Provider [phone] Reason for Visit * Reason Comments [facility]: Maintenance Encounter Details Date Type Department Care Team Description 08/17/2022 Home Visit [facility], [facility] [address] [facility] [place] [address] Brooke Jose RN [address] [place] [address] Allergies Active Allergy Reactions Severity Noted Date [...] Glucose Monitoring Suppl ([employer] Golf and EntertainmentUCH ULTRA 2) w/Device KIT Use to test [...] times daily 500 Each 3 11/04/2021 Active FOURward Thoughtuch Ultra Blue In Vitro Strip (Glucose Blood) [...] 11/03/2021 Active Ondansetron HCl 4 MG Oral TabletIndications:V [...] 06/18/2022 Active Magnesium Oxide 400 MG Oral CapsuleIndications: [...] on 08/03/2022 Furosemide 40 MG Oral Tablet (Lasix)Indications: 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 300 Tablet 3 07/26/2022 Active oxyCODONE-Acetamino phen 5-325 MG Oral Tablet (Percocet)Indicatio [...] 08/10/2022 Active clonazePAM 0.5 MG Oral Tablet (KlonoPIN)Indicatio ns:Anxiety state Take 1 Tablet (0.5 mg) by mouth in the morning and 1 Tablet (0.5 mg) before bedtime. 60 Tablet 0 08/10/2022 Active Gabapentin 100 MG Oral Capsule (Neurontin)Indicati ons:Restless legs syndrome,Fibromyalg ia Take 2 Capsules (200 mg) by mouth at bedtime. 200 Capsule 3 08/16/2022 Active omeprazole (PRILOSEC) 20 MG CPDR Take 1 Cap by mouth daily. 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/31/2021 Atherosclerosis of [place] coronary arter 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 12/31/2021 [...] (Pfizer) 2022,10/01/2021 Pneumococcal Conjugate Vacci ne, 20-valent ([id number]) 03/12/2022 Pneumococcal Polysaccharide PPV23 (Pneumovax) 08/22/2009,06/15/2006 Seasonal [...] Reading Time Taken Comments Blood Pressure 130/60 08/17/2022 12:40 PM EST Pulse 94 08/17/2022 12:40 PM EST Temperature 36.8 C (98.3 F) 08/17/2022 12:[address] Respiratory Rate - - Oxygen Saturation 97% 08/17/2022 12:40 PM EST 3lnc Inhaled Oxygen Concentration - - Weight 142.4 kg (314 lb) 08/17/2022 12:40 PM EST Height - - Body Mass Index 52.25 08/06/2022 2:48 PM EST documented in this encounter Progress Notes * Brooke Jose RN - 08/17/2022 11:33 AM EST [facility] D[employer] Bailer Operator Monthly Visit Date: 08/17/2022 Time: 11:33 AM Name: Stephanie Camp : 1955 Situation: ROSA 4 Background: [facility] Enrollment Date: 06/14/22- Focused Care (3-9 months) PMHx: [place] filter, CHF, CHF, DVT, venous insufficiency, vasculitis, CAD, carotid stenosis, chronic hypoxemic respiratory failure, ELISSA, o2 dependent, GERD, DM, Hx PE, spinal stenosis Utilization: 07/16 - - [facility] Admission - falls, acute on chronic CHF, acute on chronic respiratory failure,cellulitis R hand d/t cat bite 07/29 - 03/17 - [facility] - acute on chronic resp fx with hypoxia, UTI, chronic diastolic HF, d/c home on doxycycline and cefdinir 08/04 and 08/25/22 - scheduled for cataract surgeries Assessment: Feeling ''okay'' Cg present at beginning of visit Has much of apt organized from moving since last visit Assisted cg with making her bed this morning and was not sob BREATHING: Breathing at baseline Wearing o2 continuously, 3lnc day, 2lnc night Wearing cpap nightly FLUID STATUS: 314lbs today Dry wt: 313lbs MEDS: Has stopped taking Prilosec per pharmacist recommendations - now c/o frequent heartburn especially when laying down Has stopped Bentyl and is now having abdominal cramping Today is first day she is decreasing gabapentin to 100mg bid Scheduled to have R eye surgery 08/25/22 Will have L eye done one month later Physical Exam: BP 130/60 | Pulse 94 | Temp 36.8 C (98.3 F) | Wt (!) 142.4 kg (314 lb) | LMP 03/11/2003 | SpO2 97% Comment: 3lnc | BMI 52.25 kg/m | BSA 2.56 m Pain 3 Physical Exam Constitutional: Appearance: She is obese. Cardiovascular: Rate and Rhythm: Normal rate and regular rhythm. Pulmonary: Effort: Pulmonary effort is normal. Breath sounds: Rales (RLL) present. Abdominal: General: Bowel sounds are normal. Palpations: Abdomen is soft. Musculoskeletal: Right lower leg: No edema. Left [...] Positive for shortness of breath (AVENDAÑO at times). Negative for cough. Cardiovascular: Negative. Gastrointestinal: Negative. Endocrine: Negative. Genitourinary: Negative. Musculoskeletal: Positive for arthralgias, back pain, gait problem and myalgias. Allergic/Immunologic: Negative. Neurological: Positive for weakness. Hematological: Bruises/bleeds easily. Psychiatric/Behavioral: Negative. Medication Reconciliation: (See medication list) Does patient take medications as ordered: Yes Patient Well Being: Continues to live alone with her two cats Raúl culp [facility] Completed this Visit: No. No falls since last visit Advanced Care Planning: No documentation, deferred d/t extensive med rec imposing time limit. Reinforcement/Education: Educated on home safety: Create a [...] 07/23/22 - working towards pill packs with [facility] Frequent UTI's - typically asymptomatic until has fever, has standing order for urine culture Ambulate with roller walker at ALL times o2 2lnc at rest, 4Lnc with activity - [facility] [phone] WEAR O2 AT ALL TIMES OR BECOMES [...] Wear b/l le support hose-on day/off night - often does not wear Zaroxolyn prn for fluid overload-take only as [...] Interventions Provided: Home Intervention: Other; pill box fill Reinforced current Plan of Care, including self-management and medication regimen Patient Needs to Remember: Call [facility] with red flags Referrals Needed: none Follow Up: Is there cellular connectivity/connectivity in the home? Yes Does the patient have internet in the home? Yes Patient encouraged to call the intake phone number for all urgent but not emergent issues. Is the patient new to 1,2,3 [facility] within the last 30 days? No, Assess appropriateness for upcoming telehealth visits. Cancel telehealth visits & schedule home visit with care guest service team leader(s)as indicated. Provider is in agreement with Plan of Care: Yes Scheduled to follow up with patient in one week - pill box fill and pill bottles to [facility]. Brooke Jose RN 08/17/2022 11:33 AM documented in this encounter Plan of Treatment Upcoming Encounters Date Type Specialty Care Team Description 08/24/2022 Home Visit [facility] Brooke Jose, RN [address] [facility] [place] [address] 08/25/2022 Office Visit Pulmonary Nikita Sanchez MD [address] [place] [address] 08/30/2022 Office Visit Family Medicine Galdino Andujar, DO [address] [place] [address] 09/13/2022 Office Visit Family Medicine Galdino Andujar, DO [address] [place] [address] 01/19/2023 PulmDiagnostic Pulmonary Function [facility], [address] [place] [address] 08/08/2023 Nurse Only [employer], Nurse Annual Wellness Visit [address] [place] [address] Scheduled Procedures Name Priority Associated Diagnoses Date/Ti [...] Additional history exists CKD PHOS USE SMARTSET 74114 01/07/202312/25, 03/12/2021, 11/17/2020, Additional history exists DIABETES-FOOT EXAM 01/07/2023 01/07/2022, 0 01/14/2021, 11/07/2019, Additional history exists TSH FOR THYROID MEDICATION MONITORING YEARLY 01/07/2023 01/07/2022, 12/25/2020, 05/06/2020, Additional history exists GFR - Renal Function 02/10/2023 08/13/2022, 07/02/2022, 06/18/2022, Additional history exists DIABETES-EYE EXAM 05/24/2023 05/24/2022, , 04/07/2020, Additional history exists CKD HGB USE SMARTSET 85358 06/29/202306/29, 06/29/2022, 01/07/2022, Additional history exists Depression [...] Documents on File Type Date Recorded Patient Underwriter Expl anation POLST 03/19/2020 4:25 PM POLST [...] the patient have Health Care Power of Bridges And Buildings Supervisor? No Healthcare Agents on File Name Relationship Healthcare Agent Relationship Communication Galdino Camp Other - (no specific identity) Health Care Power of Bridges And Buildings Supervisor Princess Thrashery Other - (no specific identity) Health Care Power of Bridges And Buildings Supervisor Care Teams Well Service Derrick Worker Relationship Specialty Start Date End Date Galdino Andujar, DO [address] [place] [address] PCP - General Internal Medicine 01/07/22 documented as of this encounter
--- OUTSIDE RECORDS SUMMARY | 2023-06-01 04:25 | External Medical Summary | Summary of Care ---
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/31/2021 Atherosclerosis of [place] coronary arter 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 12/31/2021 [...] mRNA, LNP-s, No Pre serve, 2-Dose Series (Present) 01/08/2021,12/18/2020 COVID-19, LNP-s, No Preserve , Navarro-sucrose, Ages 12+ (Pfizer) 2022,10/01/2021 Pneumococcal Conjugate Vacci ne, 20-valent ([id number]) 03/12/2022 Pneumococcal Polysaccharide PPV23 (Pneumovax) 08/22/2009,06/15/2006 Seasonal [...] Addendum Note - Lexii Andujar DO - 08/18/2022 11:32 AM ESTAddended by: LEXII ANDUJAR on: 08/18/2022 11:32 AM Modules accepted: Orders * Telephone Encounter - Pop [facility] - 08/18/2022 11:11 AM EST Brooke, I spoke with Stephanie on the phone. She usually gets her Prilosec OTC but would like to have it packaged in blister packs. She also said she wants to keep Bentyl on hand if she gets abdominal cramping. The [address] crew will need to send orders for these to [facility]. * Telephone Encounter - Brooke Jose [...] am transitioning her to pill packs at [facility]. Can you please send new scripts for her? I am seeing her again next Tuesday for her last pill box fill. Please let me know if you have any questions. Thank you, brooke documented in this encounter Plan of Treatment Upcoming Encounters Date Type Specialty Care Team Description 08/24/2022 Home Visit [facility] Brooke Jose RN [address] [place] [address] 08/25/2022 Office Visit [facility]monary [facility] [address] [facility] [address] 08/30/2022 Office Visit Family Medicine Lexii Andujar, DO [address] [place] [address] 09/13/2022 Office Visit Family Medicine Lexii Andujar, DO [address] [place] [address] 01/19/2023 PulmDiagnostic Pulmonary Function [place], [address] [place] [address] 08/08/2023 Nurse Only [employer]illary College, Nurse Annual Wellness Visit [address] [place] [address] Scheduled Procedures Name Priority Associated Diagnoses Date/Ti [...] Additional history exists CKD PHOS USE SMARTSET 34322 01/07/202312/25, 03/12/2021, 11/17/2020, Additional history exists DIABETES-FOOT EXAM 01/07/2023 01/07/2022, 0 01/14/2021, 11/07/2019, Additional history exists TSH FOR THYROID MEDICATION MONITORING YEARLY 01/07/2023 01/07/2022, 12/25/2020, 05/06/2020, Additional history exists GFR - Renal Function 02/10/2023 08/13/2022, 07/02/2022, 06/18/2022, Additional history exists DIABETES-EYE EXAM 05/24/2023 05/24/2022, , 04/07/2020, Additional history exists CKD HGB USE SMARTSET 67023 06/29/202306/29, 06/29/2022, 01/07/2022, Additional history exists Depression [...] Diagnosis Gastroesophageal reflux disease with esophagitis without hemorrhage- Primary Irritable bowel syndrome, unspecified type documented in this encounter Advance Directives Documents on File Type Date Recorded Patient College Teacher Expl anation POLST 03/19/2020 4:25 PM [...] the patient have Health Care Power of Rail Car Repair Carman? No Healthcare Agents on File Name Relationship Healthcare Agent Relationship Communication Lexii Camp Other - (no specific identity) Health Care Power of Rail Car Repair Carman Princess Thrashery Other - (no specific identity) Health Care Power of Rail Car Repair Carman Care Teams Bench Patternmaker Metal Relationship Specialty Start Date End Date Lexii Andujar, DO [address] [place] [address] PCP - General Internal Medicine 01/07/22 documented as of this encounter
--- OUTSIDE RECORDS SUMMARY | 2023-06-01 04:25 | External Medical Summary | Summary of Care ---
Author Name Unknown Organization [place] [address] Care Team Providers Care Bridge Ironworker Helper Name Role Phone PratimaLexii DO Primary Care Provider [phone] Reason for Visit * Reason Comments [facility]: Telehealth Encounter Details Date Type Department Care Team Description 08/10/2022 Telemedicine [facility], [facility] [address] [place] [address] Lucia Garcia, TATIANA [address] [place] [address] Mira Duong, [facility] [address] [place] [address] ILD (interstitial lung disease) ([facility])*; Fibromyalgia; Moderate episode of recurrent major depressive disorder (HCC); Primary osteoarthritis of both knees; Chronic hypoxemic respiratory failure (HCC); 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 3b chronic kidney disease ([facility]) Allergies Active Allergy Reactions Severity Noted Date Comments Codeine 07/08/2014 hallucination Pollen 05/18/2019 Heparin 09/04/2009 Heparin Induced Thrombocytopenia Hydrocodone Neuro complications (Please comment) 07/28/2020 Empagliflozin Other (Please comment) Medium 05/17/2018 3 yeast infections in 6 weeks after starting Morphine And Related 09/16/1997 Hallucinations Tetanus Toxoid Other (Please comment) 06/15/2011 Passed out documented as of this encounter (statuses as of 08/11/2022) Medications Medication Sig Dispensed Refills Start Date End Date Status DEMIAN BISWAS LANCETS 33G MISC Check blood sugars 3-4 times daily 180 Each 5 8 Active oxygen GASIndications:ELISAS (obstructive sleep apnea) 2 lpm continuous 0 0 Active omeprazole (PRILOSEC) 20 MG CPDR Take 1 Cap by mouth daily. 90 Cap 3 0 Active DIURETIC TITRATION PLANIndications:Ch ronic diastolic congestive heart failure (HCC) If no improvement on day 3, contact heart failure managing provider. 1 Each 0 0 Active Blood Glucose Monitoring Suppl ([place] [facility] [place] ULTRA 2) w/Device KIT Use to test BG values 1 Kit 0 0 Active Acetaminophen 500 MG Oral Tablet Take 500 mg by mouth every 6 hours as needed. 0 Active Meclizine HCl 12.5 MG Oral Tablet (Antivert)Indicati ons:Vertigo Take 1 Tab by mouth 3 times a day as needed for Dizziness. 30 Tab 1 1 Active CPAP every night at bedtime. 0 [...] daily, E11.9 400 Strip 3 2 Active Cyclobenzaprine HCl 10 MG Oral Tablet (Flexeril)Indicati ons:Spinal stenosis of lumbar region without neurogenic claudication,Lumba r radiculopathy TAKE ONE TABLET BY MOUTH AT BEDTIME NEEDED FOR SPASM 90 Tablet 3 2 Active Trulicity 4.5 MG/0.5ML Subcutaneous Solution Pen-injector (Dulaglutide) Inject 1 pen under the skin weekly 6 mL 5 2 Active Levothyroxine Sodium 50 MCG Oral Tablet (Levoxyl)Indicatio ns:Hyperparathyroi dism, secondary renal (HCC) Take by mouth 1 Tablet in the morning. (at least 30 min prior to breakfast or other meds). 90 Tablet 3 2 Active Ondansetron HCl 4 MG Oral TabletIndications: Vertigo Take by mouth 1 Tablet every 6 hours as needed for Nausea. 90 Tablet 6 2 Active NovoLOG FlexPen 100 UNIT/ML Subcutaneous Solution Pen-injector (insulin aspart)Indications :Type 2 diabetes mellitus with hemoglobin A1c goal of 7.0%-8.0% (HCC) Inject 40 units with meals + sliding scale 1 units for every 25 units BG > 150. 121 mL 3 2 Active Nortriptyline HCl 50 MG Oral Capsule (Pamelor)Indicatio ns:Fibromyalgia TAKE ONE CAPSULE BY MOUTH AT BEDTIME 100 Capsule 3 2 Active rOPINIRole HCl 2 MG Oral Tablet (Requip)Indication s:Restless legs syndrome TAKE ONE TABLET BY MOUTH AT BEDTIME 100 Tablet 3 2 Active metFORMIN HCl ER 500 MG Oral Tablet Extended Release 24 Hour (Glucophage XR)Indications:Typ e 2 diabetes mellitus with hemoglobin A1c goal of less than 8.0% (HCC) Take by mouth 1 Tablet in the morning. 100 Tablet 1 2 Active Levothyroxine Sodium 200 MCG Oral Tablet (Levoxyl)Indicatio ns:Postsurgical hypothyroidism TAKE ONE TABLET BY MOUTH IN THE MORNING AT LEAST 30 MINUTES PRIOR TO BREAKFAST OR OTHER MEDS 100 Tablet 3 2 Active traZODone HCl 50 MG Oral Tablet (Desyrel) Take by mouth 1 Tablet before bedtime. 100 Tablet 3 2 Active Potassium Chloride ER 20 MEQ Oral Tablet Extended ReleaseIndications :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, NYHA class 1 and CKD stage 3 (HCC),Chronic diastolic congestive heart failure (HCC) Take by mouth 1 Tablet in the morning AND 1 Tablet before bedtime. 200 Tablet 3 2 Active Magnesium Oxide 400 MG Oral CapsuleIndications :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, NYHA class 1 and CKD stage 3 (HCC),Chronic diastolic congestive heart failure (HCC) Take by mouth 1 Capsule in the morning AND 1 Capsule before bedtime. 200 Capsule 3 2 Active Tresiba FlexTouch 100 UNIT/ML Subcutaneous Solution Pen-injector (Insulin Degludec)Indicatio ns:Type 2 diabetes mellitus with hemoglobin A1c goal of 7.0%-8.0% (HCC) INJECT 60 UNITS UNDER THE SKIN EVERY MORNING 60 mL 3 2 Active Additional Information Patient taking differently: INJECT 60 UNITS UNDER THE SKIN IN THE EVENING, Reported on 08/03/2022 Furosemide 40 MG Oral Tablet (Lasix)Indications :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 300 Tablet 3 2 Active oxyCODONE-Acetamin ophen 5-325 MG Oral Tablet (Percocet)Indicati ons:Lumbar radiculopathy,Spin al stenosis of lumbar region without neurogenic claudication Take by mouth 1 Tablet every 12 hours as needed for Pain, Severe. 60 Tablet 0 2 Active Cholecalciferol 25 MCG (1000 UT) Oral Capsule Take 1 Capsule (1,000 Units) by mouth in the morning. 90 Capsule 3 2 Active Sennosides-Docusat e Sodium 8.6-50 MG Oral Tablet (Senna Plus) Take 1 Tablet by mouth in the morning and 1 Tablet before bedtime. 0 2 Active Gabapentin 300 MG Oral Capsule (Neurontin)Indicat ions:Restless legs syndrome,Fibromyal jami Take 1 Capsule (300 mg) by mouth in the morning. 100 Capsule 3 2 Active DULoxetine HCl 60 MG Oral Capsule Delayed Release Particles (Cymbalta)Indicati ons:Fibromyalgia,M oderate episode of recurrent major depressive disorder (HCC),Primary osteoarthritis of both knees Take 1 Capsule (60 mg) by mouth in the morning. Take 1 capsule daily. 30 Capsule 0 2 Active Dicyclomine HCl 20 MG Oral Tablet (Bentyl) Take by mouth 1 Tablet as needed in the morning AND 1 Tablet as needed at noon AND 1 Tablet as needed in the evening AND 1 Tablet as needed before bedtime for Pain, Mild. For abdominal pain. 450 Tablet 3 2 022 Discontinued(Me dication/Dose Changed) Apixaban 5 MG Oral Tablet (Eliquis) Take by mouth 1 Tablet in the morning AND 1 Tablet before bedtime. 10mg twice a day x 7 days then 5mg twice a day . 180 Tablet 3 2 Discontinued(Re fill) DULoxetine HCl 60 MG Oral Capsule Delayed Release Particles (Cymbalta)Indicati ons:Fibromyalgia,M oderate episode of recurrent major depressive disorder (HCC),Primary osteoarthritis of both knees Take by mouth 1 Capsule in the morning. Along with 30 mg capsule to total 90 mg daily.. 100 Capsule 3 2 Discontinued clonazePAM 0.5 MG Oral Tablet (KlonoPIN)Indicati ons:Anxiety state Take by mouth 1 Tablet in the morning AND 1 Tablet before bedtime. 60 Tablet 0 2 Discontinued(Re fill) Clotrimazole 10 MG Mouth/Throat Valarie (Mycelex Valarie) Take by mouth 10 mg 5 times a day . 0 Discontinued(Me dication List Clean Up) Cefdinir 300 MG Oral Capsule (Omnicef) 1 Capsule (300 mg). 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/31/2021 Atherosclerosis of [place] coronary arter 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 [...] as of this encounter (statuses as of 08/11/2022) Resolved Problems Problem Noted Date Resolved Date [...] as of this encounter (statuses as of 08/11/2022) Immunizations Name Administration Dates Next Due COVID-19 mRNA, LNP-s, No Pre serve, 2-Dose Series (Pfizer) 01/08/2021,12/18/2020 COVID-19, LNP-s, No Preserve , Navarro-sucrose, Ages 12+ (Pfizer) 2022,10/01/2021 Pneumococcal Conjugate Vacci ne, 20-valent ([id number]) 03/12/2022 Pneumococcal Polysaccharide PPV23 (Pneumovax) 08/22/2009,06/15/2006 Seasonal [...] Reading Time Taken Comments Blood Pressure 122/70 08/10/2022 1:35 PM EST Pulse 85 08/10/2022 1:35 PM EST Temperature 35.9 C (96.6 F) 08/10/2022 1:35 PM ES T Respiratory Rate - - Oxygen Saturation 94% 08/10/2022 1:35 PM EST Inhaled Oxygen Concentration - - Weight 142.4 kg (314 lb) 08/10/2022 1:35 PM EST Height - - Body Mass Index 52.25 08/06/2022 2:48 PM EST documented in this encounter Progress Notes * TATIANA Pro - 08/10/2022 1:00 PM EST Images from the original note were not included. [facility] Problem Oriented Charting Provider Visit Date: 08/10/2022 Time: 12:[address] [facility] Sub-Program: Focused Care Management (3-9 months) Assessment and Plan ILD (interstitial lung disease) (HCC) Assessment & Plan: Followed by pulailyn Stable today Fibromyalgia Assessment & Plan: Uses percocet BID prn. Moderate episode of recurrent major depressive disorder (HCC) Assessment & Plan: Stable today Continue duloxetine Primary osteoarthritis of both knees Assessment & Plan: Declines PT, reports it causes too much pain. Following with orthopedics Chronic hypoxemic respiratory failure (HCC) Assessment & Plan: Wearing O2 2LPM at night and 3L during day with exertion, stable. Hypertensive heart and kidney disease with chronic [...] interventions for heart failure o Euvolemic today Additional Medical Decision Making: Stable today. Following with [facility] and plans to keep all scheduled appts. Feels good. LEXI CM to monitor. Will recheck in 6-8 weeks. Check-out note: [facility] scheduling--please schedule 6-8 week provider telemedicine recheck Scheduled appointments in the next 60 days: Future Appointments-next 60 days Date/Time Provider Specialty Dept Phone 08/10/2022 1:00 PM Mira Duong, [facility]; TATIANA Pro [facility] [phone] 08/13/2022 8:50 AM [facility] Laboratory Processing [phone] 08/17/2022 12:30 PM Brooke Jose RN [facility] [phone] 08/25/2022 3:40 PM (Arrive by 3:25 PM) Nikita Sanchez MD [facility] [phone] 08/30/2022 2:20 PM (Arrive by 2:05 PM) Lexii Andujar DO Family Medicine [phone] 09/13/2022 1:00 PM (Arrive by 12:45 PM) Lexii Andujar DO Family [facility] [phone] 01/19/2023 2:00 PM [facility] [phone] 08/08/2023 2:00 PM Nurse Annual Wellness Visit [facility] [phone] A total of 20 minutes was spent face to face (via video-based telemedicine if designated as a telemedicine visit) Subjective Subjective Is this a Telemedicine Visit? Yes, Patient location: HOME. I was not in a hospital or clinic location. After connecting through televideo, patient was verified with two unique identifiers. Patient (or authorized legal sales and merchandising representative) was then informed that this was a Telemedicine visit and being conducted confidentially over secure lines. Methods to assure confidentiality were taken. Patient acknowledged consent and understanding of privacy and security of the Telemedicine visit. The patient agreed to participate. Reason For [facility] Visit: Transition of Care Current Concerns: Stephanie Camp is a 67 year old female seen today for a [facility] provider visit. [facility] 07/29-08[facility]01--of note was inpatient in May for CHF, cat bite R hand in Jun. [place] sick since discharge week prior, EMS reported O2 sats 50% at home. Hgb 14.5, WBC 10.74, GFR 56.4, BNP 72, resp viral PCR neg. + acute on chronic resp failure secondary to ILD--given ceftriazone and dexamethasone in ED. Had COVID exposure, repeat COVID testing neg. D/c home on cefdinir and doxy. 08/06--pcp--urine culture done and neg for UTI Seen by pulm in January--history severe pneumonia requiring intubation, tracheostomy complicated with PE. No longer smokes Today's concerns are: Feeling good. Wearing O2 2l at night and 3 during the day Has AMC scales and today 314lb.She reports her wt is down. Additional Review of Systems Constitutional: Positive for appetite change (not real good.). Negative for chills and fever. Respiratory: Positive for shortness of breath (with exertion). Negative for cough and wheezing. Cardiovascular: Positive for leg swelling (always). Negative for chest pain. Gastrointestinal: Positive for constipation. Negative for diarrhea, nausea and vomiting. Last BM yesterday Genitourinary: Negative for decreased urine volume. Musculoskeletal: Positive for arthralgias. Negative for gait problem and myalgias. + fibromyalgia Objective Objective Vitals: 08/10/22 1335 Temp: 35.9 C (96.6 F) Pulse: 85 SpO2: 94% BP: 122/70 Last Weights: Wt Readings from Last 3 Encounters: 08/10/22 (!) 142.4 kg (314 lb) 08/06/22 (!) 145.4 kg (320 lb 9.6 oz) 08/05/22 (!) 145.4 kg (320 lb 8 oz) Last BPs: BP Readings from Last 4 Encounters: 08/10/22 122/70 08/06/22 108/54 08/05/22 124/60 08/03/22 132/58 Physical Exam Constitutional: General: She is not in acute distress. Appearance: She is obese. She is not toxic-appearing. HENT: Head: Normocephalic. Cardiovascular: Rate and Rhythm: Normal rate and regular rhythm. Pulmonary: Effort: Pulmonary effort is normal. No respiratory distress. Breath sounds: Normal breath sounds. Musculoskeletal: Right lower leg: No edema. Left lower leg: No edema. Skin: Coloration: Skin is not pale. Neurological: General: No focal deficit present. Mental Status: She is alert. Psychiatric: Mood and Affect: Mood normal. Behavior: Behavior normal. Lab Review: I have reviewed the following results: BMP results Recent Labs Units 07/02/22 1511 06/18/22 1521 05/12/22 1504 SODIUM - [facility] mmol/L 141 137 137 POTASSIUM - [facility] mmol/L 4.1 4.9 4.4 CHLORIDE - [facility] mmol/L 99 97* 96* CO2 - [facility] mmol/L 28 27 27 CREATININE - [facility] mg/dL 1.5* 1.4* 1.3* BUN - [facility] mg/dL 27* 24* 21* Lipid panel results Recent Labs Units 07/02/22 1511 CHOLESTEROL - [facility] mg/dL 208* LDL CHOLESTEROL (CALCULATED) - [facility] mg/dL 120 HDL CHOLESTEROL - [facility] mg/dL 44* TRIGLYCERIDES - [facility] mg/dL 220* CBC results Recent Labs Units 06/29/22 0813 01/07/22 1156 12/26/21 0000 12/07/21 1157 WBC AUTO - [facility] K/uL 12.26* 11.57* -- 9.37 HGB - [facility] g/dL 13.9 13.9 -- 12.5 HEMOGLOBIN-OUTSIDE LAB G/DL -- -- 14.3 -- HCT - [facility] % 44.9 45.1 -- 41.7 PLATELET AUTO - [facility] K/uL 343 289 -- 256 HbA1c results Recent Labs Units 05/12/22 1504 01/07/22 1156 11/17/20 1300 HEMOGLOBIN A1C - [facility] % 7.6* 7.8* 8.3* TSH results Recent Labs Units 01/07/22 1156 12/25/20 1010 TSH - [facility] uIU/mL 0.95 3.88 Vitamin D results Recent Labs Units 07/02/22 1511 03/12/21 1500 11/17/20 1300 25-HYDROXY VITAMIN D - [facility] ng/mL 29 23 27 Hepatic panel results Recent Labs Units 06/18/22 1521 PROTEIN - [facility] g/dL 7.0 BILIRUBIN, TOTAL - [facility] mg/dL 0.4 ALKALINE PHOSPHATASE - [facility] U/L 86 AST - [facility] U/L 22 ALT - [facility] U/L 22 Protein/cr ratio results No results for input(s): PROCRRATIO in the last 78528 hours. Medication Review "Bottles Out" medication review not performed today due to . with medication list reviewed and updated in the EMR as appropriate Mobility Evaluation: MAHC10 Assessment: Assistive Devices Used in the Home: Walker (standard or rollator) Straight or Guard Cane High-Risk Medications: hypotensives and diuretics Recent Falls: Falls in the last 6 months: Yes - When last fall occurred: When oxygen dropped to low Does not want PT--reports it causes her knees too much pain, SDoH: NO SOCIAL DETERMINATE NEEDS IDENTIFIED Advance Care Planning Advance Care Planning [place] Information: Health Care Power of Oil Field Laborer (Active): LEXII CAMP - Other - (no specific identity) - [phone] Health Care Power of Oil Field Laborer: LIYA ALLEN - Other - (no specific identity) - [phone] Aligning Care With What Matters Most: After reviewing the preceding "Discerning What Matters Most" conversation, the following decisions were discussed: Interventions/Choices:: CPR; Intubation/mechanical ventilation; Non-invasive ventilation or BIPAP; Antibiotic therapy; Artificial nutrition; IV hydration; Blood transfusion; Lab draws (07/01/2022 4:53PM) CPR decision: : Patient chooses CPR (07/01/2022 4:53 PM) Intubation/Mechanical Ventilation decision: : Patient chooses Intubation/mechanical ventilation (07/01/2022 4:53 PM) Their goals for Non-invasive ventilation or BIPAP treatment are: : if it is short term (01/12/2022 10:02 AM) Non-invasive ventilation or BIPAP decision: : Patient chooses non-invasive ventilation. Select interventions below (07/01/2022 4:53 PM) Non-Invasive Ventilation Interventions:: Oxygen only; CPAP; BIPAP; NIV (01/12/2022 10:02 AM) Antibiotic therapy decision: : Patient chooses Antibiotic therapy (07/01/2022 4:53 PM) Artificial nutrition decision: : Declines Artificial nutrition (07/01/2022 4:53 PM) Their goals for IV hydration treatment are: : short term only (01/12/2022 10:02 AM) IV hydration decision: : Patient chooses IV hydration (07/01/2022 4:53 PM) Blood transfusion decision: : Patient chooses Blood transfusion (07/01/2022 4:53 PM) Lab draw decision: : Patient chooses Lab draws (07/01/2022 4:53 PM) Source: Content from Respecting Choices Program TATIANA Pro 12:10 PM *Communication sent to PCP (via autofax if [facility]), [facility]/Population Health Care Team members,relevant Specialty Care Physicians* * Mira Duong Counts Include [address] [facility] At [facility] - 08/10/2022 12:17 PM EST [facility] Visit Date: 08/10/2022 Time: 12:17 PM Name: Stephanie Camp : 1955 Referral Source: manager programming Source of Information: Patient Spoken language: south african Patient can read in [place] Zealander: Yes. Shingle Sawyer needed: No. COVID-19 screening completed: Yes Vitals: Vital signs completed: Yes, vital signs within normal range. BP 122/70 | Pulse 85 | Temp 35.9 C (96.6 F) | Wt (!) 142.4 kg (314 lb) | LMP 03/11/2003 | SpO2 94% | BMI 52.25 kg/m | BSA 2.56 m Condition Changes: Changes in health or social status since last visit: Pain in right side due to diverticulitis The patient has new concerns since last visit: No Progress towards goals since last visit: She is getting more organized in the home. Medications: Medication review completed? No, none requested Does the patient have barriers to medication adherence? No. Patient reports difficulty paying for medications or might in the future: No. Telehealth: This is a telehealth visit: Yes. Type of telehealth visit: Transition of Care Visit conducted with: Physician/AP Symptoms Surveys and Evaluations: MAHC10 completed this visit: No. no falls since last visit. -- Last flowsheet values for [facility]: Age 65+: 1 (08/03/2022 1:00 PM) Diagnosis (3 or more co-existing): 1 (08/03/2022 1:00 PM) Prior history of falls within 3 months: 1 (08/03/2022 1:00 PM) Incontinence: 1 (08/03/2022 1:00 PM) Visual impairment: 0 (08/03/2022 1:00 PM) Impaired functional mobility: 1 (08/03/2022 1:00 PM) Environmental hazards: 1 (08/03/2022 1:00 PM) Poly Pharmacy (4 or more prescriptions - any type): 1 (08/03/2022 1:00 PM) Pain affecting level of function: 1 (08/03/2022 1:00 PM) Cognitive impairment: 0 (08/03/2022 1:00 PM) Score - a score of 4 or more is considered at risk for fallin (08/03/2022 1:00 PM) Heart Failure Checklist A "good day" for the patient looks like most days Today is different than a "good day": No Patient describes sleep as doing ok Normal The patient has been asked to track the amount of fluid they drink: No. There is an AMC scale in the home: No. Typically, the patient's meals look like breakfast-coffee/cereal Lunch-Bananna Dinner-Balanced meal with meat/vegestable Patient's food choices are lower in sodium. [...] No Does bathroom have grab bars needed? No The patient reports needing help getting on [...] Yes. Type of help the patient receives: transportation if needed Patient perceives the help they receive as adequate: software support representative food, drive to appts. o Yes. DME: o DME used: Walker, O2 and Shower chair o Patient has concerns related to DME: No. Financial: Patient reports experiencing a financial hardship: Yes. Financial services the patient currently receives: She paid movers to [employer] and they never showedup. Patient requests additional financial help with no one at this time. She needs to contact the [facility] office. Specify plan/referrals/care team members notified: o Employment: o Patient is unemployed or without regular income: No. Utilities: o Patient reports difficulty paying heating, water, or electric bill: No. Transportation: o Patient drives: Yes. o Does anyone drive patient to appointments and shopping? No. o Patient receives community or public transportation assistance: No. o Patient reports trouble getting a ride [...] lonely or isolated from those around you? Rarely. Specify plan/referrals/care team members notified: She tries to get out of the apartment tojust walk around. Plan: Reinforced patient's three red flags by the care team 1. SOB 2. Weight over 337 3. Unable to wear O2 Reinforced red flags with patient by care team. Patient states her weight today was #314. Patient stated she did not receive her eloquis and another medication that was ordered last week from . LES contacted RN at [facility] and asked to have this authorized and sent to [facility] and stated she will do it now. Follow Up: Patient encouraged to call the intake phone number for all urgent but not emergent issues. Scheduled to follow up with patient in 6-8 weeks for another tele-med [facility] 08/10/2022 12:17 PM documented in this encounter Miscellaneous Notes * Assessment & Plan Note - TATIANA Pro - 08/11/2022 4:41 PM EST Associated Problem(s): Hypertensive heart and kidney disease [...] interventions for heart failure o Euvolemic today * Assessment & Plan Note - TATIANA Pro - 08/11/2022 4:38 PM EST Associated Problem(s): Primary osteoarthritis of both knees Declines PT, reports it causes too much pain. Following with orthopedics * Assessment & Plan Note - TATIANA Pro - 08/11/2022 4:37 PM EST Associated Problem(s): Moderate episode of recurrent major depressive disorder (HCC) Stable today Continue duloxetine * Assessment & Plan Note - TATIANA Pro - 08/11/2022 4:36 PM EST Associated Problem(s): Fibromyalgia Uses percocet BID prn. * Assessment & Plan Note - TATIANA Pro - 08/11/2022 4:33 PM EST Associated Problem(s): Chronic hypoxemic respiratory failure (HCC) Wearing O2 2LPM at night and 3L during day with exertion, stable. * Assessment & Plan Note - TATIANA Pro - 08/11/2022 4:32 PM EST Associated Problem(s): ILD (interstitial lung disease) (HCC) Followed by freddy Gonzalez today documented in this encounter Plan of Treatment Upcoming Encounters Date Type Specialty Care Team Description 08/13/2022 Laboratory Laboratory Processing [facility], [facility] [address] [facility] [place] [address] 08/17/2022 Home Visit [facility] Brooke Jose, RN [address] [facility] [place] [address] 08/25/2022 Office Visit Pulmonary Nikita Sanchez MD [address] [place] [address] 08/30/2022 Office Visit Family Medicine Lexii Andujar, DO [address] [place] [address] 09/13/2022 Office Visit Family Medicine Lexii Andujar, DO [address] [facility], [place] [address] 01/19/2023 PulmDiagnostic Pulmonary Function [place], Pft [address] [place] [address] 08/08/2023 Nurse Only [employer], Nurse Annual Wellness Visit [facility] [address] [place] [address] Scheduled Procedures Name Priority Associated Diagnoses Date/Ti [...] 11/12/2022 05/12/2022, 01/07/2022, 11/17/2020, Additional history exists GFR - Renal Function 12/31/2022 07/02/2022, 06/18/2022, 05/12/2022, Additional history exists Alb / Creat Ratio 01/07/2023 01/07/2022, , 05/01/2018, Additional history exists CKD PHOS USE SMARTSET 11641 01/07/202312/25, 03/12/2021, 11/17/2020, Additional history exists DIABETES-FOOT EXAM 01/07/2023 01/07/2022, 0 01/14/2021, 11/07/2019, Additional history exists TSH FOR THYROID MEDICATION MONITORING YEARLY 01/07/2023 01/07/2022, 12/25/2020, 05/06/2020, Additional history exists DIABETES-EYE EXAM 05/24/2023 05/24/2022, , 04/07/2020, Additional history exists CKD HGB USE SMARTSET 17597 06/29/202306/29, 06/29/2022, 01/07/2022, Additional history exists Depression [...] as of this encounter Visit Diagnoses Diagnosis ILD (interstitial lung disease) (HCC)- Primary Postinflammatory pulmonary fibrosis Fibromyalgia Mylagia and myositis, unspecified Moderate episode of recurrent major depressive disorder (HCC) Primary osteoarthritis of both knees Primary localized osteoarthrosis, lower leg Chronic hypoxemic respiratory failure (HCC) Chronic respiratory failure 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 3b chronic kidney disease (HCC) documented in this encounter Advance Directives Documents on File Type Date Recorded Patient Design Release Engineer Expl anation POLST 03/19/2020 4:25 PM [...] patient have Health Care Power of Oil Field Laborer? No Healthcare Agents on File Name Relationship Healthcare Agent Relationship Communication Lexii Camp Other - (no specific identity) Health Care Power of Oil Field Laborer Liya Other - (no specific identity) Health Care Power of Oil Field Laborer Care Teams Bridge Ironworker Helper Relationship Specialty Start Date End Date Lexii Andujar, DO [address] [place] [address] PCP - General Internal Medicine 01/07/22 documented as of this encounter
--- OUTSIDE RECORDS SUMMARY | 2023-06-01 04:25 | External Medical Summary | Summary of Care ---
Author Name Unknown Organization [place] [address] Care Team Providers Care Stage Manager Name Role Phone Lexii Andujar DO Primary Care Provider [phone] Encounter Details Date Type Department Care Team Description 08/16/2022 Refill Family Practice [address] [facility] [address] [place] [id number] Lexii Andujar DO [address] [place] [address] Restless legs syndrome; Fibromyalgia Allergies Active Allergy Reactions Severity Noted Date Comments Codeine 07/08/2014 hallucination Pollen 05/18/2019 Heparin 09/04/2009 Heparin Induced Thrombocytopenia Hydrocodone Neuro complications (Please comment) 07/28/2020 Empagliflozin Other (Please comment) Medium 05/17/2018 3 yeast infections in 6 weeks after starting Morphine And Related 09/16/1997 Hallucinations Tetanus Toxoid Other (Please comment) 06/15/2011 Passed out documented as of this encounter (statuses as of 08/16/2022) Medications Medication Sig Dispensed Refills Start Date End Date Status DEMIAN BISWAS LANCETS 33G MISC Check blood sugars 3-4 times daily 180 Each 5 08/01/2018 Active oxygen GASIndications:ELISSA (obstructive sleep apnea) 2 lpm continuous 0 11/28/2019 Active omeprazole (PRILOSEC) 20 MG CPDR Take 1 Cap by mouth daily. 90 Cap 3 12/18/2019 Active DIURETIC TITRATION PLANIndications:Chr onic diastolic congestive heart failure (HCC) If no improvement on day 3, contact heart failure managing provider. 1 Each 0 04/08/2020 Active Blood Glucose Monitoring Suppl (LingotekUCH ULTRA 2) w/Device KIT Use to test [...] times daily 500 Each 3 11/04/2021 Active Jajahuch Ultra Blue In Vitro Strip (Glucose Blood) [...] Active Sennosides-Docusate Sodium 8.6-50 MG Oral Tablet (Senna Plus) [...] at bedtime. 200 Capsule 3 08/16/2022 Active Gabapentin 300 MG Oral Capsule (Neurontin)Indicati ons:Restless legs syndrome,Fibromyalg ia Take 1 Capsule (300 mg) by mouth in the morning. 100 Capsule 3 08/06/2022 08/16/20 Discontinu ed(Refill) documented as of this encounter (statuses as of 08/16/2022) Active Problems Problem Noted Date ILD (interstitial [...] 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/31/2021 Atherosclerosis of [place] coronary arter 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 [...] as of this encounter (statuses as of 08/16/2022) Resolved Problems Problem Noted Date Resolved Date [...] as of this encounter (statuses as of 08/16/2022) Immunizations Name Administration Dates Next Due COVID-19 mRNA, LNP-s, No Pre serve, 2-Dose Series ([facility]) 01/08/2021,12/18/2020 COVID-19, LNP-s, No Preserve , Navarro-sucrose, Ages 12+ (Pfizer) 2022,10/01/2021 Pneumococcal Conjugate Vacci ne, 20-valent ([id number]) 03/12/2022 Pneumococcal Polysaccharide PPV23 (Pneumovax) 08/22/2009,06/15/2006 Seasonal [...] Telephone Encounter - Lexii Andujar DO - 08/16/2022 3:26 PM ESTSigned Prescriptions: Disp Refills Gabapentin 100 MG Oral Capsule (Neurontin) 200 Ca*3 Sig: Take 2 Capsules (200 mg) by mouth at bedtime.Authorizing Provider: LEXII ANDUJAR * Telephone Encounter - Shira Gross LPN - 08/16/2022 3:01 PM EST Patient is aware and will comply. Thank you * Telephone Encounter - Shira Gross LPN - 08/16/2022 2:59 PM EST ----- Message from Lexii Andujar DO sent at 08/15/2022 6:28 PM EST ----- Labs are stable Decrease Gabapentin to 200 mg daily documented in this encounter Plan of Treatment Upcoming Encounters Date Type Specialty Care Team Description 08/17/2022 [facility] Brooke Jose, RN [address] [place] [address] 08/25/2022 Office Visit Pulmonary Nikita Sanchez MD [address] [place] [address] 08/30/2022 Office Visit Family Medicine Lexii Andujar DO [address] [place] [address] 09/13/2022 Office Visit Family Medicine Lexii Andujar DO [address] [place] [address] 01/19/2023 PulmDiagnostic Pulmonary Function [facility], [facility]ft [address] [facility] [place] [address] 08/08/2023 Nurse Only Ancillary College, Nurse Annual Wellness Visit [address] [place] [address] Scheduled Procedures Name Priority Associated Diagnoses Date/Ti [...] Additional history exists CKD PHOS USE SMARTSET 83900 01/07/202312/25, 03/12/2021, 11/17/2020, Additional history exists DIABETES-FOOT EXAM 01/07/2023 01/07/2022, 0 01/14/2021, 11/07/2019, Additional history exists TSH FOR THYROID MEDICATION MONITORING YEARLY 01/07/2023 01/07/2022, 12/25/2020, 05/06/2020, Additional history exists GFR - Renal Function 02/10/2023 08/13/2022, 07/02/2022, 06/18/2022, Additional history exists DIABETES-EYE EXAM 05/24/2023 05/24/2022, , 04/07/2020, Additional history exists CKD HGB USE SMARTSET 48105 06/29/202306/29, 06/29/2022, 01/07/2022, Additional history exists Depression [...] Restless legs syndrome Restless legs syndrome (RLS) Fibromyalgia Mylagia and myositis, unspecified documented in this encounter Advance Directives Documents on File Type Date Recorded Patient Glue Size Machine Operator Expl anation POLST 03/19/2020 4:25 [...] the patient have Health Care Power of Card Feeder? No Healthcare Agents on File Name Relationship Healthcare Agent Relationship Communication Lexii Camp Other - (no specific identity) Health Care Power of Card Feeder Princess Allen Other - (no specific identity) Health Care Power of Card Feeder Care Teams Stage Manager Relationship Specialty Start Date End Date Lexii Andujar, DO [address] [place] [address] PCP - General Internal Medicine 01/07/22 documented as of this encounter
--- OUTSIDE RECORDS SUMMARY | 2023-06-01 04:25 | External Medical Summary ---
Author Name Unknown Address Unknown Organization K01:[facility] [address] [place] [address] Laboratory Report Ordering Provider Test Date Status JAG SHULTZ 08/13/2022 09:02:00 Final Observation Date Value Abnormality Reference (Units ) Status Magnesium 08/13/2022 09:02:00 1.6 1.5-2.6 (m g/dL) Final Performing Location [facility] [address] [place] [address]
--- OUTSIDE RECORDS SUMMARY | 2023-06-01 04:25 | External Medical Summary | Summary of Care ---
Author Name Unknown Organization [place] [address] Care Team Providers Care Literacy Tutor Name Role Phone ZiaandrewsGaldino DO Primary Care Provider Reason for Visit * Reason Onset Date Comments [facility]: Maintenance 08/17/2022 Encounter Details Date Type Department Care Team Description 08/17/2022 Telephone [facility] [address] [facility] [place] [address] Brooke Jose, RN [address] [facility] [address] [facility]: Maintenance Allergies Active Allergy Reactions Severity Noted Date Comments Codeine 07/08/2014 hallucination Pollen 05/18/2019 Heparin 09/04/2009 Heparin Induced Thrombocytopenia Hydrocodone Neuro complications (Please comment) 07/28/2020 Empagliflozin Other (Please comment) Medium 05/17/2018 3 yeast infections in 6 weeks after starting Morphine And Related 09/16/1997 Hallucinations Tetanus Toxoid Other (Please comment) 06/15/2011 Passed out documented as of this encounter (statuses as of 08/17/2022) Medications Medication Sig Dispensed Refills Start Date End Date Status ONETOUCH DELICA LANCETS 33G MISC Check blood sugars 3-4 times daily 180 Each 5 08/01/2018 Active oxygen GASIndications:ELISSA (obstructive sleep apnea) 2 lpm continuous 0 11/28/2019 Active omeprazole (PRILOSEC) 20 MG CPDR Take 1 Cap by mouth daily. 90 Cap 3 12/18/2019 Active Additional Information Patient not taking.Reported on 08/17/2022 DIURETIC TITRATION PLANIndications:Deck Officer 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 1 Each 0 04/08/2020 Active Blood Glucose Monitoring Suppl (Teez.byTOUCH ULTRA 2) w/Device KIT Use to test [...] times daily 500 Each 3 11/04/2021 Active FusemachinesTouch Ultra Blue In Vitro Strip (Glucose Blood) [...] as of this encounter (statuses as of 08/17/2022) Active Problems Problem Noted Date ILD (interstitial [...] percocet BID prn. Abnormality of gait 02/02/[address] [place] [address] 08/19/2014 History of pulmonary [...] as of this encounter (statuses as of 08/17/2022) Resolved Problems Problem Noted Date Resolved Date [...] as of this encounter (statuses as of 08/17/2022) Immunizations Name Administration Dates Next Due COVID-19 mRNA, LNP-s, No Pre serve, 2-Dose Series ([facility]) 01/08/2021,12/18/2020 COVID-19, LNP-s, No Preserve , Navarro-sucrose, Ages 12+ (Pfizer) 2022,10/01/2021 Pneumococcal Conjugate Vacci ne, 20-valent ([id number]) 03/12/2022 Pneumococcal Polysaccharide PPV23 (Pneumovax) 08/22/2009,06/15/2006 Seasonal [...] am transitioning her to pill packs at [facility]. Can you please send new scripts for her? I am seeing her again next Tuesday for her last pill box fill. Please let me know if you have any questions. Thank you, brooke documented in this encounter Plan of Treatment Upcoming Encounters Date Type Specialty Care Team Description 08/24/2022 Home Visit [facility] Brooke Jose RN [address] [facility] [place] [address] 08/25/2022 Office Visit Pulmonary Nikita Sanchez MD [address] [place] [address] 08/30/2022 Office Visit Family Medicine Galdino Andujar, DO [address] [place] [address] 09/13/2022 Office Visit Family Medicine Galdino Andujar, DO [address] [place] [address] 01/19/2023 PulmDiagnostic Pulmonary Function West, P[address] [place] [address] 08/08/2023 Nurse Only Ancillary College, Nurse Annual Wellness Visit [address] [place] [address] Scheduled Procedures Name Priority Associated Diagnoses Date/Ti [...] Additional history exists CKD PHOS USE SMARTSET 00863 01/07/2023 04/12/2021, 03/12/2021, 11/17/2020, Additional history exists DIABETES-FOOT EXAM 01/07/2023 01/07/2022, 0 01/14/2021, 11/07/2019, Additional history exists TSH FOR THYROID MEDICATION MONITORING YEARLY 01/07/2023 01/07/2022, 12/25/2020, 05/06/2020, Additional history exists GFR - Renal Function 02/10/2023 08/13/2022, 07/02/2022, 06/18/2022, Additional history exists DIABETES-EYE EXAM 05/24/2023 05/24/2022, , 04/07/2020, Additional history exists CKD HGB USE SMARTSET 53701 06/29/202306/29, 06/29/2022, 01/07/2022, Additional history exists Depression [...] Documents on File Type Date Recorded Patient Trailer Chief Expl anation POLST 03/19/2020 4:25 PM [...] the patient have Health Care Power of Web Marketing Intern? No Healthcare Agents on File Name Relationship Healthcare Agent Relationship Communication Galdino Camp Other - (no specific identity) Health Care Power of Web Marketing Intern Princess Allen Other - (no specific identity) Health Care Power of Web Marketing Intern Care Teams Literacy Tutor Relationship Specialty Start Date End Date Galdino Andujar, DO [address] [place] [address] PCP - General Internal Medicine 01/07/22 documented as of this encounter
--- OUTSIDE RECORDS SUMMARY | 2023-06-01 04:25 | External Medical Summary | Summary of Care ---
Author Name Unknown Organization [place] [address] Care Team Providers Care Biofuels Technology Development Manager Name Role Phone Galdino Andujar DO Primary Care Provider [phone] Reason for Visit * Reason Onset Date Comments Medication Refill 08/18/2022 Encounter Details Date Type Department Care Team Description 08/18/2022 [facility] [address] [facility] [address] [facility] [place] [address] Allergies Active Allergy Reactions Severity Noted Date [...] lpm continuous 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:Clean Room Assembler 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 1 Each 0 04/08/2020 Active Blood Glucose Monitoring Suppl (InstamediaTOUCH ULTRA 2) w/Device KIT Use to test [...] times daily 500 Each 3 11/04/2021 Active Versauch Ultra Blue In Vitro Strip (Glucose Blood) [...] mRNA, LNP-s, No Pre serve, 2-Dose Series ([employer]) 01/08/2021,12/18/2020 COVID-19, LNP-s, No Preserve , Navarro-sucrose, Ages 12+ (Pfizer) 2022,10/01/2021 Pneumococcal Conjugate Vacci ne, 20-valent ([id number]) 03/12/2022 Pneumococcal Polysaccharide PPV23 (Pneumovax) 08/22/2009,06/15/2006 Seasonal [...] Notes * Telephone Encounter - Pop Greer [facility] - 08/18/2022 11:22 AM EST Requested by patient documented in this encounter Plan of Treatment Upcoming Encounters Date Type Specialty Care Team Description 08/24/2022 Home Visit [facility] Brooke Jose, RN [address] [place] [address] 08/25/2022 Office Visit Pulmonary Nikita Sanchez MD [address] [place] [id number] 08/30/2022 Office Visit Family Medicine Galdino Andujar, DO [address] [facility] [place] [address] 09/13/2022 Office Visit Family Medicine Galdino Andujar, DO [address] [facility], [place] [address] 01/19/2023 PulmDiagnostic Pulmonary Function West, [address] [place] [address] 08/08/2023 Nurse Only Ancillary College, Nurse Annual Wellness Visit [address] [facility] [place] [address] Scheduled Procedures Name Priority Associated Diagnoses Date/Ti [...] Additional history exists CKD PHOS USE SMARTSET 42950 01/07/202312/25, 03/12/2021, 11/17/2020, Additional history exists DIABETES-FOOT EXAM 01/07/2023 01/07/2022, 0 01/14/2021, 11/07/2019, Additional history exists TSH FOR THYROID MEDICATION MONITORING YEARLY 01/07/2023 01/07/2022, 12/25/2020, 05/06/2020, Additional history exists GFR - Renal Function 02/10/2023 08/13/2022, 07/02/2022, 06/18/2022, Additional history exists DIABETES-EYE EXAM 05/24/2023 05/24/2022, , 04/07/2020, Additional history exists CKD HGB USE SMARTSET 02046 06/29/202306/29, 06/29/2022, 01/07/2022, Additional history exists Depression [...] Documents on File Type Date Recorded Patient Vehicle Refinisher Expl anation POLST 03/19/2020 4:25 PM POLST [...] the patient have Health Care Power of Rectifying Operator? No Healthcare Agents on File Name Relationship Healthcare Agent Relationship Communication Galdino Camp Other - (no specific identity) Health Care Power of Rectifying Operator Princess Allen Other - (no specific identity) Health Care Power of Rectifying Operator Care Teams Biofuels Technology Development Manager Relationship Specialty Start Date End Date Galdino Andujar, DO [address] [place] [address] PCP - General Internal Medicine 01/07/22 documented as of this encounter
--- OUTSIDE RECORDS SUMMARY | 2023-06-01 04:25 | External Medical Summary | Summary of Care ---
Author Name Unknown Organization [place] [address] Care Team Providers Care Site Inspector Name Role Phone Lexii Andujar DO Primary Care Provider [phone] Encounter Details Date Type Department Care Team Description 08/10/2022 Refill Family [address] [facility] [place] [address] [place] [id number] Lexii Andujar DO [address] [place] [address] Anxiety state Allergies Active Allergy Reactions Severity Noted Date Comments Codeine 07/08/2014 hallucination Pollen 05/18/2019 Heparin 09/04/2009 Heparin Induced Thrombocytopenia Hydrocodone Neuro complications (Please comment) 07/28/2020 Empagliflozin Other (Please comment) Medium 05/17/2018 3 yeast infections in 6 weeks after starting Morphine And Related 09/16/1997 Hallucinations Tetanus Toxoid Other (Please comment) 06/15/2011 Passed out documented as of this encounter (statuses as of 08/10/2022) Medications Medication Sig Dispensed Refills Start Date End Date Status ONETOGRABIEL DELFRANTZ LANCETS 33G MISC Check blood sugars [...] 0 04/08/2020 Active Blood Glucose Monitoring Suppl (YeelionTOUCH ULTRA 2) w/Device KIT Use to test [...] goal of less than 8.0% ([facility]) Take by mouth 1 Tablet in the [...] 1 Tablet before bedtime. 0 08/05/2022 Active Gabapentin 300 MG Oral Capsule (Neurontin)Indicati ons:Restless legs syndrome,Fibromyalg ia Take 1 Capsule (300 mg) by mouth in the morning. 100 Capsule 3 08/06/2022 Active DULoxetine HCl 60 MG Oral Capsule [...] twice a day . 180 Tablet 3 01/13/2022 08/10/20 22 Discontinu ed(Refill) clonazePAM 0.5 MG Oral Tablet (KlonoPIN)Indicatio ns:Anxiety state Take by mouth 1 Tablet in the morning AND 1 Tablet before bedtime. 60 Tablet 0 07/02/2022 08/10/20 22 Discontinu ed(Refill) documented as of this encounter (statuses as of 08/10/2022) Active Problems Problem Noted Date Chronic kidney disease, stage 3b 022 Overview: [...] hypoxemic respiratory failure Last Assessment & Plan: Typically on 2 L at rest, 4 L with exertion. Currently on 3 L O2 stable Heparin 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/31/2021 Atherosclerosis of yuhaaviatam coronary arter 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 12/31/2021 Carotid artery stenosis, asymptomatic, r ight 12/31/2021 Leukocytoclastic vasculitis 12/31/2021 Spinal stenosis of lumbar region without neurogenic claudication 07/15/2020 Primary osteoarthritis of left knee 10/28 Hyperparathyroidism, secondary renal 08/2020 Vasculitis 11/07/2019 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, NYHA class 1 and CKD stage 3 05/14/2019 Last Assessment & Plan: BP stable. Weight down. Breathing baseline. Cr. baseline -continue increased dose of lasix Lumbar radiculopathy 09/27/2018 Mild episode of recurrent [...] Plan: Sx controlled with Requip Fibromyalgia 02/02/2016 Abnormality of gait 02/02/2016 Frank filter in [...] as of this encounter (statuses as of 08/10/2022) Resolved Problems Problem Noted Date Resolved Date [...] as of this encounter (statuses as of 08/10/2022) Immunizations Name Administration Dates Next Due COVID-19 mRNA, LNP-s, No Pre serve, 2-Dose Series (StartForce) 01/08/2021,12/18/2020 COVID-19, LNP-s, No Preserve , Navarro-sucrose, Ages 12+ (Pfizer) 2022,10/01/2021 Pneumococcal Conjugate Vacci ne, 20-valent ([id number]) 03/12/2022 Pneumococcal Polysaccharide PPV23 (Pneumovax) 08/22/2009,06/15/2006 Seasonal [...] Telephone Encounter - Lexii Andujar DO - 08/10/2022 2:08 PM ESTSigned Prescriptions: Disp Refills Apixaban 5 MG Oral Tablet (Eliquis) 180 Ta*3 Sig: Take 1 Tablet (5 mg) by mouth in the morning and 1 Tablet (5 mg) before bedtime. 10mg twice a day x 7 days then 5mg twice a day .Authorizing Provider: LEXII ANDUJAR clonazePAM 0.5 MG Oral Tablet (KlonoPIN) 60 Tab*0 Sig: Take 1 Tablet (0.5 mg) by mouth in the morning and 1 Tablet (0.5 mg) before bedtime.Authorizing Provider: LEXII ANDUJAR * Telephone Encounter - Lexii Andujar DO - 08/10/2022 2:07 PM EST I have reviewed the patients controlled substance dispensing history in the Prescription Drug Monitoring Program in compliance with the [facility] regulations before prescribing a controlled substance. Last Tox Screen Results: No results found. However, due to the size of the patient record, not all encounters were searched.Please check Results Review for a complete set of results. Medication is due today * Telephone Encounter - Shira Gross LPN - 08/10/2022 2:01 PM EST Did you pend patient's preferred pharmacy and medication before forwarding?yes Pharmacy: [facility] [id number] Pending Prescriptions: Disp Refills Apixaban 5 MG Oral Tablet (Eliquis) 180 Ta*3 Sig: Take 1 Tablet (5 mg) by mouth in the morning and 1 Tablet (5 mg) before bedtime. 10mg twice a day x 7 days then 5mg twice a day . clonazePAM 0.5 MG Oral Tablet (KlonoPIN) 60 Tab*0 Sig: Take 1 Tablet (0.5 mg) by mouth in the morning and 1 Tablet (0.5 mg) before bedtime. Last Visit: 08/06/2022 (in office), 07/27/2022 (telemedicine) Next Visit: 08/30/2022 If no future appointments scheduled, and last appointment is greater than a year ago, please schedule patient for a follow-up appointment Last date the medication was ordered: 07/02/2022 Is this request for a controlled substance?Yes, What was the last refill date as per script w/ quantity as per scipt and dosage as per script and Urine Drug Screen Not completed Urine Drug Screen:No results found. However, due to the size of the patient record, not all encounters were searched. Please check Results Review for a complete set of results. Patient Phone Numbers Labs: Lab Results Component Value Date/Time CREAT 1.5 (H) 07/02/2022 03:11 PM CREAT 1.54 (A) 12/26/2021 12:00 AM CREAT 2.0 (H) 05/06/2020 08:46 AM POTASSIUM 4.1 07/02/2022 03:11 PM POTASSIUM 3.6 12/26/2021 12:00 AM POTASSIUM [...] Care Team Description 08/13/2022 Laboratory Laboratory Processing [facility] [place], [facility] [address] [facility] [address] 08/17/2022 Home Visit [facility] Brooke Jose, RN [address] [place] [address] 08/25/2022 Office Visit Nikita Escalante MD [address] [place] [phone] 08/30/2022 Office Visit Family Medicine Lexii Andujar, DO [address] [facility], [place] [address] 09/13/2022 Office Visit Family Medicine Lexii Andujar DO [address] [facility], [place] [address] 01/19/2023 PulmDiagnostic Pul[facility] [place], [address] [place] [id number] 08/08/2023 Nurse Only [employer], Nurse Annual Wellness Visit [address] [facility], [place] [address] Scheduled Procedures Name Priority Associated Diagnoses Date/Ti [...] Additional history exists CKD PHOS USE SMARTSET 08791 01/07/202312/25, 03/12/2021, 11/17/2020, Additional history exists DIABETES-FOOT EXAM 01/07/2023 01/07/2022, 0 01/14/2021, 11/07/2019, Additional history exists TSH FOR THYROID MEDICATION MONITORING YEARLY 01/07/2023 01/07/2022, 12/25/2020, 05/06/2020, Additional history exists DIABETES-EYE EXAM 05/24/2023 05/24/2022, , 04/07/2020, Additional history exists CKD HGB USE SMARTSET 00778 06/29/202306/29, 06/29/2022, 01/07/2022, Additional history exists Depression Screening, Annual for Pts 12 and Over 08/05/2023 08/05/2022, 06/12/2018 Mammogram 02/12/2024 02/11/2022, 01/0 02/2021, 07/10/2019, Additional history exists Colonoscopy: Ages 45-75 02/17/2026 02/18/20, 01/28/2006, 10/27/2005 Colorectal Cancer Screening (Colonoscopy 10 [...] Documents on File Type Date Recorded Patient Continuous Crusher Operator Expl anation POLST 03/19/2020 4:25 PM [...] the patient have Health Care Power of Tie Loader? No Healthcare Agents on File Name Relationship Healthcare Agent Relationship Communication Lexii Camp Other - (no specific identity) Health Care Power of Tie Loader Princess Allen Other - (no specific identity) Health Care Power of Tie Loader Care Teams Site Inspector Relationship Specialty Start Date End Date Lexii Andujar, DO [address] [place] [address] PCP - General Internal Medicine 01/07/22 documented as of this encounter
--- OUTSIDE RECORDS SUMMARY | 2023-06-01 04:26 | External Medical Summary | Summary of Care ---
Author Name Unknown Organization [place] [address] Care Team Providers Care Medicinal Chemist Name Role Phone Galdino Andujar DO Primary Care Provider [phone] Reason for Visit * Reason Onset Date Comments Hospital Follow-Up Hospital Follow-Up 08/06/2022 Encounter Details Date Type Department Care Team Description 08/06/2022 Office Visit Family Practice [address] [place] [address] [place] [phone] Galdino Andujar DO [address] [place] [address] Chronic hypoxemic respiratory failure (HCC)*; Type 2 diabetes mellitus with stage 3b chronic kidney disease, with long-term current use of insulin (HCC); 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, NYHA class 1 and CKD stage 3 (HCC); Recurrent deep vein thrombosis (DVT) of both lower extremities ([facility]); Dyslipidemia; Postsurgical hypothyroidism; Statin intolerance; Restless legs syndrome; Gastroesophageal reflux disease with esophagitis without hemorrhage; Spinal stenosis of lumbar region without neurogenic claudication; Heparin 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); Atherosclerosis of benton coronary artery of benton heart without angina pectoris; Frank filter in place; Morbid obesity with BMI of 50.0-59.9, adult (HCC); Fibromyalgia; Dysuria; Hospital discharge follow-up; Acute cystitis without hematuria Allergies Active Allergy Reactions Severity Noted Date Comments Codeine 07/08/2014 hallucination Pollen 05/18/2019 Heparin 09/04/2009 Heparin Induced Thrombocytopenia Hydrocodone Neuro complications (Please comment) 07/28/2020 Empagliflozin Other (Please comment) Medium 05/17/2018 3 yeast infections in 6 weeks after starting Morphine And Related 09/16/1997 Hallucinations Tetanus Toxoid Other (Please comment) 06/15/2011 Passed out documented as of this encounter (statuses as of 08/06/2022) Medications Medication Sig Dispensed Refills Start Date [...] 0 04/08/2020 Active Blood Glucose Monitoring Suppl (RackupTOUCH ULTRA 2) w/Device KIT Use to test [...] for Nausea. 90 Tablet 6 11/03/2021 Active Dicyclomine HCl 20 MG Oral Tablet (Bentyl) Take by mouth 1 Tablet as needed in the morning AND 1 Tablet as needed at noon AND 1 Tablet as needed in the evening AND 1 Tablet as needed before bedtime for Pain, Mild. For abdominal pain. 450 Tablet 3 11/03/2021 Active NovoLOG FlexPen 100 UNIT/ML Subcutaneous Solution Pen-injector (insulin aspart)Indications: Type 2 diabetes mellitus with hemoglobin A1c goal of 7.0%-8.0% (HCC) Inject 40 units with meals + sliding scale 1 units for every 25 units BG > 150. 121 mL 3 11/04/2021 Active Apixaban 5 MG Oral Tablet (Eliquis) Take by mouth 1 Tablet in the morning AND 1 Tablet before bedtime. 10mg twice a day x 7 days then 5mg twice a day . 180 Tablet 3 01/13/2022 Active Nortriptyline HCl 50 MG Oral Capsule [...] the morning. 100 Tablet 1 05/12/2022 Active DULoxetine HCl 60 MG Oral Capsule Delayed Release Particles (Cymbalta)Indicatio ns:Fibromyalgia,Mod erate episode of recurrent major depressive disorder (HCC),Primary osteoarthritis of both knees Take by mouth 1 Capsule in the morning. Along with 30 mg capsule to total 90 mg daily.. 100 Capsule 3 06/08/2022 Active Additional Information Patient taking differently:60 mg Oral Daily(AM),Take 1 capsule daily, Reported on 08/05/2022 Levothyroxine Sodium 200 MCG Oral Tablet (Levoxyl)Indication [...] before bedtime. 200 Capsule 3 06/18/2022 Active clonazePAM 0.5 MG Oral Tablet (KlonoPIN)Indicatio ns:Anxiety state Take by mouth 1 Tablet in the morning AND 1 Tablet before bedtime. 60 Tablet 0 07/02/2022 Active Tresiba FlexTouch 100 UNIT/ML Subcutaneous Solution Pen-injector (Insulin Degludec)Indication s:Type 2 diabetes mellitus with hemoglobin A1c goal of 7.0%-8.0% ([facility]) INJECT 60 UNITS UNDER THE SKIN EVERY MORNING 60 mL 3 07/23/2022 Active Additional Information Patient taking differently: INJECT 60 UNITS UNDER THE SKIN IN THE EVENING, Reported on 08/03/2022 Clotrimazole 10 MG Mouth/Throat Valarie (Mycelex Valarie) Take by mouth 10 mg 5 times a day . 0 Active Furosemide 40 MG Oral Tablet (Lasix)Indications: [...] Pain, Severe. 60 Tablet 0 07/26/2022 Active Cefdinir 300 MG Oral Capsule (Omnicef) 1 Capsule (300 mg). 0 08/01/2022 Active Cholecalciferol 25 MCG (1000 UT) Oral [...] the morning. 100 Capsule 3 08/06/2022 Active Gabapentin 300 MG Oral Capsule (Neurontin) Take by mouth 1 Capsule in the morning AND 1 Capsule before bedtime. 200 Capsule 3 01/19/2022 08/06/20 22 Discontinu ed(Refill) documented as of this encounter (statuses as of 08/06/2022) Active Problems Problem Noted Date Chronic kidney [...] as of this encounter (statuses as of 08/06/2022) Resolved Problems Problem Noted Date Resolved Date [...] as of this encounter (statuses as of 08/06/2022) Immunizations Name Administration Dates Next Due COVID-19 mRNA, LNP-s, No Pre serve, 2-Dose Series (Locu) 01/08/2021,12/18/2020 COVID-19, LNP-s, No Preserve , Navarro-sucrose, Ages 12+ (Pfizer) 2022,10/01/2021 Pneumococcal Conjugate Vacci ne, 20-valent ([id number]) 03/12/2022 Pneumococcal Polysaccharide PPV23 (Pneumovax) 08/22/2009,06/15/2006 Seasonal [...] Sign Reading Time Taken Comments Blood Pressure 108/54 08/06/2022 2:48 PM EST Pulse 94 08/06/2022 2:48 PM EST Temperature 36.8 C (98.3 F) 08/06/2022 2:48 PM ES T Respiratory Rate 14 08/06/2022 2:48 PM EST Oxygen Saturation 99% 08/06/2022 2:48 PM EST 4 LPM Inhaled Oxygen Concentration - - Weight 145.4 kg (320 lb 9.6 oz) 08/06/2022 2:48 PM EST Height 165.1 cm (5' 5") 08/06/2022 2:48 PM EST Body Mass Index 53.35 08/06/2022 2:48 PM EST documented in this encounter Progress Notes * Galdino Andujar, DO - 08/06/2022 3:28 PM EST SUBJECTIVE: Stephanie Camp is a 67 year old female. Chief Complaint Patient presents with Hospital Follow-Up Hospital Follow-Up Recent Admission: Patient was recently admitted to [facility]. The date of discharge was 08/01/2022.Discharge report received and reviewed. HPI: Patient is a 67 year old female with a history of DM type II, CKD stage III, Diastolic CHF, chronichypoxic respiratory failure, HTN, recurrent DVT, IVC filter, Hyperlipidemia, statin intolerance, GERD, lumbar disc disease, restless leg syndrome, Sleep Apnea on CPAP, Heparin induced Thrombocytopenia, and Ambulatory Dysfunction that is seen for hospital follow up. The patient was admitted to [facility] due to acute on chronic respiratory failure due to pneumonia. She had UTI and exacerbation of CHF aswell. The patient is feeling better. No chest pain is present. Shortness of breath has improved andis back to previous baseline. Chronic back pain is present at all times, Chronic leg swelling is sta ble. Patient Active Problem List Diagnosis Code Dyslipidemia [...] with BMI of 50.0-59.9, adult ([facility]) E66.01, Z68.43 Controlled substance agreement signed Z79.899 Chronic diastolic congestive heart failure ([facility]) I50.32 Mild episode of recurrent major depressive disorder ([facility]) F33.0 Lumbar radiculopathy M54.16 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, NYHA class 1 and CKD stage 3 ([facility]) I13.0, I50.30, N18.30 Hyperparathyroidism, secondary renal ([facility]) N25.81 Vasculitis ([facility]) I77.6 Primary osteoarthritis of left knee M17.12 Spinal stenosis of lumbar region without neurogenic claudication M48.061 Heparin 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) D75.829 Atherosclerosis of benton coronary arter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 I25.10 Carotid artery stenosis, asymptomatic, right I65.21 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 Encounter for long-term (current) use of other medications Z79.899 Type 2 diabetes mellitus with stage 3b chronic kidney disease ([facility]) E11.22, N18.32 Type 2 diabetes mellitus with hemoglobin A1c goal of less than 8.0% ([facility]) E11.9 Recurrent deep vein thrombosis (DVT) of both lower extremities ([facility]) I82.403 Chronic hypoxemic respiratory failure ([facility]) J96.11 Chronic kidney disease, stage 3b ([facility]) N18.32 Current Outpatient Medications Medication Sig Dispense Refill Gabapentin 300 MG Oral Capsule (Neurontin) Take 1 Capsule (300 mg) by mouth in the morning. 100Capsule 3 ONETOUCH DELICA LANCETS 33G MISC Check blood sugars 3-4 times daily 180 Each 5 oxygen GAS 2 lpm continuous omeprazole (PRILOSEC) 20 MG CPDR Take 1 Cap by mouth daily. 90 Cap 3 DIURETIC TITRATION PLAN If no improvement on day 3, contact heart failure managing provider. 1 Each 0 Blood Glucose Monitoring Suppl (ONETOUCH ULTRA 2) w/Device KIT Use to test BG values 1 Kit 0 Acetaminophen 500 MG Oral Tablet Take 500 mg by mouth every 6 hours as needed. Meclizine HCl 12.5 MG Oral Tablet (Antivert) Take 1 Tab by mouth 3 times a day as needed for Dizziness. 30 Tab 1 CPAP every night at bedtime. metOLazone 2.5 MG Oral Tablet (Zaroxolyn) Take 2.5 mg by mouth daily as needed. Do not take unless instructed by provider BD Pen Needle Short U/F 31G X 8 MM (Insulin Pen Needle) use five times daily 500 Each 3 OneTouch Ultra Blue In Vitro Strip (Glucose Blood) Check sugars 3-4 times daily, E11.9 400 Strip 3 Cyclobenzaprine HCl 10 MG Oral Tablet (Flexeril) TAKE ONE TABLET BY MOUTH AT BEDTIME NEEDED FOR SPASM 90 Tablet 3 Trulicity 4.5 MG/0.5ML Subcutaneous Solution Pen-injector (Dulaglutide) Inject 1 pen under the skin weekly 6 mL 5 Levothyroxine Sodium 50 MCG Oral Tablet (Levoxyl) Take by mouth 1 Tablet in the morning. (at least 30 min prior to breakfast or other meds). 90 Tablet 3 Ondansetron HCl 4 MG Oral Tablet Take by mouth 1 Tablet every 6 hours as needed for Nausea. 90 Tablet 6 Dicyclomine HCl 20 MG Oral Tablet (Bentyl) Take by mouth 1 Tablet as needed in the morning AND 1 Tablet as needed at noon AND 1 Tablet as needed in the evening AND 1 Tablet as needed before bedtime for Pain, Mild. For abdominal pain. 450 Tablet 3 NovoLOG FlexPen 100 UNIT/ML Subcutaneous Solution Pen-injector (insulin aspart) Inject 40 unitswith meals + sliding scale 1 units for every 25 units BG > 150. 121 mL 3 Apixaban 5 MG Oral Tablet (Eliquis) Take by mouth 1 Tablet in the morning AND 1 Tablet before bedtime. 10mg twice a day x 7 days then 5mg twice a day . 180 Tablet 3 Nortriptyline HCl 50 MG Oral Capsule (Pamelor) TAKE ONE CAPSULE BY MOUTH AT BEDTIME 100 Capsule3 rOPINIRole HCl 2 MG Oral Tablet (Requip) TAKE ONE TABLET BY MOUTH AT BEDTIME 100 Tablet 3 metFORMIN HCl ER 500 MG Oral Tablet Extended Release 24 Hour (Glucophage XR) Take by mouth 1 Tablet in the morning. 100 Tablet 1 DULoxetine HCl 60 MG Oral Capsule Delayed Release Particles (Cymbalta) Take by mouth 1 Capsule in the morning. Along with 30 mg capsule to total 90 mg daily.. (Patient taking differently: Take 1 Capsule (60 mg) by mouth in the morning. Take 1 capsule daily.) 100 Capsule 3 Levothyroxine Sodium 200 MCG Oral Tablet (Levoxyl) TAKE ONE TABLET BY MOUTH IN THE MORNING AT LEAST 30 MINUTES PRIOR TO BREAKFAST OR OTHER MEDS 100 Tablet 3 traZODone HCl 50 MG Oral Tablet (Desyrel) Take by mouth 1 Tablet before bedtime. 100 Tablet 3 Potassium Chloride ER 20 MEQ Oral Tablet Extended Release Take by mouth 1 Tablet in the morningAND 1 Tablet before bedtime. 200 Tablet 3 Magnesium Oxide 400 MG Oral Capsule Take by mouth 1 Capsule in the morning AND 1 Capsule beforebedtime. 200 Capsule 3 clonazePAM 0.5 MG Oral Tablet (KlonoPIN) Take by mouth 1 Tablet in the morning AND 1 Tablet before bedtime. 60 Tablet 0 Tresiba FlexTouch 100 UNIT/ML Subcutaneous Solution Pen-injector (Insulin Degludec) INJECT 60 UNITS UNDER THE SKIN EVERY MORNING (Patient taking differently: INJECT 60 UNITS UNDER THE SKIN IN THEEVENING) 60 mL 3 Clotrimazole 10 MG Mouth/Throat Valarie (Mycelex Valarie) Take by mouth 10 mg 5 times a day . (Patient not taking: Reported on 08/06/2022) Furosemide 40 MG Oral Tablet (Lasix) Take by mouth 1.5 Tablets in the morning AND 1.5 Tablets before bedtime. 300 Tablet 3 oxyCODONE-Acetaminophen 5-325 MG Oral Tablet (Percocet) Take by mouth 1 Tablet every 12 hours as needed for Pain, Severe. 60 Tablet 0 Cefdinir 300 MG Oral Capsule (Omnicef) 1 Capsule (300 mg). Cholecalciferol 25 MCG (1000 UT) Oral Capsule Take 1 Capsule (1,000 Units) by mouth in the morning. 90 Capsule 3 Sennosides-Docusate Sodium 8.6-50 MG Oral Tablet (Senna Plus) Take 1 Tablet by mouth in the morning and 1 Tablet before bedtime. No current facility-administered medications for this visit. Current and discharge medications have been reconciled. Review of patient's allergies indicates: Allergen Reactions Jardiance [Empagliflozin] Other (Please comment) 3 yeast infections in 6 weeks after starting Codeine hallucination Hay Fever [Pollen] Heparin Heparin Induced Thrombocytopenia Hydrocodone Neuro complications (Please comment) Morphine And Related Hallucinations Tetanus Toxoid Other (Please comment) Passed out OBJECTIVE: BP 108/54 | Pulse 94 | Temp 36.8 C (98.3 F) | Resp 14 | Ht 1.651 m (5' 5") | Wt (!) 145.4 kg (320 lb 9.6 oz) | LMP 03/11/2003 | SpO2 99% Comment: 4 LPM | BMI 53.35 kg/m | BSA 2.58 m REVIEW OF SYSTEMS: Review of Systems Constitutional: Positive for fatigue. Negative for appetite change, chills, fever and unexpected weight change. Respiratory: Positive for shortness of breath. Negative for cough and wheezing. Cardiovascular: Positive for leg swelling. Negative for chest pain and palpitations. Gastrointestinal: Negative for abdominal pain, blood in stool, constipation, diarrhea, nausea and vomiting. Genitourinary: Positive for dysuria and frequency. Negative for urgency. Neurological: Negative for dizziness, syncope and headaches. Psychiatric/Behavioral: Negative for confusion and decreased concentration. PHYSICAL EXAM: BP 108/54 | Pulse 94 | Temp 36.8 C (98.3 F) | Resp 14 | Ht 1.651 m (5' 5") | Wt (!) 145.4 kg (320 lb 9.6 oz) | LMP 03/11/2003 | SpO2 99% Comment: 4 LPM | BMI 53.35 kg/m | BSA 2.58 m Physical Exam [...] There is no abdominal tenderness. Musculoskeletal: Comments: Stable right > left leg edema is present Neurological: Mental Status: She is alert and oriented to person, place, and time. Mental status is at baseline. Motor: No weakness. Gait: Gait abnormal. ASSESSMENT/ PLAN Chronic hypoxemic respiratory failure (HCC) (Primary) - BASIC METABOLIC PANEL; Future; Expected date: 08/06/2022 Continue Oxygen Type 2 diabetes mellitus with stage 3b chronic kidney disease, with long-term current use of insulin (HCC) - BASIC METABOLIC PANEL; Future; Expected date: 08/06/2022 Continue Trulicity, Metformin, Tresiba and Novolog 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, NYHA class 1 and CKD stage 3 (HCC) - BASIC METABOLIC PANEL; Future; Expected date: 08/06/2022 - MAGNESIUM; Future; Expected date: 08/06/2022 Continue Furosemide, and metolazone Recurrent deep vein thrombosis (DVT) of both lower extremities (HCC) Continue Apixaban Dyslipidemia Postsurgical hypothyroidism Statin intolerance Restless legs syndrome Gastroesophageal reflux disease with esophagitis without hemorrhage Continue Omeprazole Spinal stenosis of lumbar region without neurogenic claudication Heparin 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) Atherosclerosis of benton coronary artery of benton heart without angina pectoris Frank filter in place Morbid obesity with BMI of 50.0-59.9, adult (HCC) Fibromyalgia Decrease gabapentin to 300 mg daily- ineffective at treating pain Dysuria - URINALYSIS, POINT OF CARE (ENTER/EDIT) - CULTURE, URINE, QUANTITATIVE; Future; Expected date: 08/06/2022 Hospital discharge follow-up - DISCH MED RECON CUR MED LIS UTI (urinary tract infection) - CULTURE, URINE, QUANTITATIVE Other orders - URINALYSIS, POINT OF CARE Follow Up: Return in about 3 weeks (around 08/27/2022), or if symptoms worsen or fail to improve. Galdino Andujar DO documented in this encounter Plan of Treatment Upcoming Encounters Date Type Specialty Care Team Description 08/10/2022 Telemedicine [facility] Lucia Garcia, TATIANA [address] [facility] [address] Mira Duong, [facility] Saddle Stitch Operator [address], [place] [id number] 08/10/2022 Office Visit Nephrology Clover Osman PA-C [address] [facility] [place] [address] 08/17/2022 Home Visit [facility] Brooke Jose, RN [address] [place] [address] 08/25/2022 Office Visit Pulmonary Nikita Sanchez MD [address] [place], [place] [address] 08/30/2022 Office Visit Family Medicine Galdino Andujar, DO [address] [facility] [place] [address] 09/13/2022 Office Visit Family Medicine Galdino Andujar, DO [address] [place] [address] 01/19/2023 PulmDiagnostic [facility] [place], [address] [place] [address] 08/08/2023 Nurse Only 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, NYHA class 1 and CKD stage 3 (HCC) Expected: 08/06/2022 (Approximate), Expires: 08/06/2023 URINALYSIS, POINT OF CARE (ENTER/EDIT) Point of Care Testing Routine Dysuria Ordered: 08/06/2022 CULTURE, URINE, QUANTITATIVE Lab Routine Dysuria Expected: 08/06/2022, Expires: 08/06/2023 MAGNESIUM Lab Routine 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, NYHA class 1 and CKD stage 3 (HCC) Expected: 08/06/2022 (Approximate), Expires: 08/06/2023 Scheduled Procedures Name Priority Associated Diagnoses Date/Ti [...] Additional history exists CKD PHOS USE SMARTSET 33095 01/07/202312/25, 03/12/2021, 11/17/2020, Additional history exists DIABETES-FOOT EXAM 01/07/2023 01/07/2022, 0 01/14/2021, 11/07/2019, Additional history exists TSH FOR THYROID MEDICATION MONITORING YEARLY 01/07/2023 01/07/2022, 12/25/2020, 05/06/2020, Additional history exists DIABETES-EYE EXAM 05/24/2023 05/24/2022, , 04/07/2020, Additional history exists CKD HGB USE SMARTSET 89518 06/29/202306/29, 06/29/2022, 01/07/2022, Additional history exists Depression [...] Procedure Name Priority Date/Time Associated Diagnosis Comments URINALYSIS, POINT OF CARE CURT 08/06/2022 3:35 PM EST documented in this encounter Results * (ABNORMAL) URINALYSIS, POINT OF CARE (08/06/2022 3:35 PM EST) Color, Urine Other(A) Light Yellow, Yellow 08/06/2022 3:38 PM EST [facility] Clarity, Urine Other(A) Clear 08/06/2022 3:38 PM EST [facility] Glucose, Urine Negative Negative mg/dL 08/06/2022 3:38 PM EST [facility] 56[facility] Bilirubin, Urine Negative Negative 08/06/2022 3:38 PM EST [facility] 56[facility] Ketone, Urine Negative Negative mg/dL 08/06/2022 3:38 PM EST [facility] Specific [place], Urine 1.015 1.003 - 1.030 08/06/2022 3:38 PM EST [facility] Blood, Urine Negative Negative 08/06/2022 3:38 PM EST [facility] 56[facility] pH, Urine 6.5 5.0, 5.5, 6.0, 6.5, 7.0, 7.5 units 08/06/2022 3:38 PM EST [place] [address] Protein, Urine Negative Negative mg/dL 08/06/2022 3:38 PM EST [place] [address] Urobilinogen, Urine 0.2 0.2, 1.0 mg/dL 08/06/2022 3:38 PM EST [place] [address] Nitrite, Urine Negative Negative 08/06/2022 3:38 PM EST [place] [address] Esterase, Urine Small(A) Negative 08/06/2022 3:38 PM EST [place] [address] Urine 08/06/2022 3:35 PM EST 08/06/2022 3:38 PM EST Galdino Andujar DO LAB POINT OF CARE TE ST DOCKED DEVICE UNSOLICITED RESULTS [place] [address] [address] [place] [address] documented in this encounter Visit Diagnoses Diagnosis Chronic hypoxemic respiratory failure (HCC)- Primary Chronic respiratory failure Type 2 diabetes mellitus with stage 3b chronic kidney disease, with long-term current use of insulin (HCC) 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, NYHA class 1 and CKD stage 3 (HCC) Recurrent deep vein thrombosis (DVT) of both lower extremities (HCC) Dyslipidemia Other and unspecified hyperlipidemia Postsurgical hypothyroidism Statin intolerance Other drug allergy Restless legs syndrome Restless legs syndrome (RLS) Gastroesophageal reflux disease with esophagitis without hemorrhage Spinal stenosis of lumbar region without neurogenic claudication Spinal stenosis, lumbar region, without neurogenic claudication Heparin 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) 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) Atherosclerosis of benton coronary artery of benton heart without angina pectoris [place] filter in place Other postprocedural status Morbid obesity with BMI of 50.0-59.9, adult (HCC) Morbid obesity Fibromyalgia Mylagia and myositis, unspecified Dysuria Hospital discharge follow-up Other follow-up examination Acute cystitis without hematuria Acute cystitis documented in this encounter Advance Directives Documents on File Type Date Recorded Patient Method Consultant Expl anation POLST 03/19/2020 4:25 PM [...] the patient have Health Care Power of Housekeeping Coordinator? No Healthcare Agents on File Name Relationship Healthcare Agent Relationship Communication Galdino Camp Other - (no specific identity) Health Care Power of Housekeeping Coordinator Princess Tiffayn Other - (no specific identity) Health Care Power of Housekeeping Coordinator Care Teams Medicinal Chemist Relationship Specialty Start Date End Date Galdino Andujar, DO [address] [place] [address] PCP - General Internal Medicine 01/07/22 documented as of this encounter
--- OUTSIDE RECORDS SUMMARY | 2023-06-01 04:26 | External Medical Summary | Summary of Care ---
Author Name Unknown Organization [place] [address] Care Team Providers Care Student Career Development Specialist Name Role Phone Galdino Andujar DO Primary Care Provider [phone] Reason for Visit * Reason Onset Date Comments Medication Refill 08/10/2022 Encounter Details Date Type Department Care Team Description 08/10/2022 Refill Family Practice [address] [place] [address] [place] [address] Galdino Andujar DO [address] [place] [address] Anxiety state Allergies Active Allergy Reactions Severity [...] 0 04/08/2020 Active Blood Glucose Monitoring Suppl (SportingoTOUCH ULTRA 2) w/Device KIT Use to test [...] 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/31/2021 Atherosclerosis of solomon coronary arter 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 12/31/2021 [...] Requip Fibromyalgia 02/02/2016 Abnormality of gait 02/02/[address] [place] [address] 08/19/2014 History of pulmonary [...] mRNA, LNP-s, No Pre serve, 2-Dose Series ([employer]) 01/08/2021,12/18/2020 COVID-19, LNP-s, No Preserve , Navarro-sucrose, Ages 12+ (Pfizer) 2022,10/01/2021 Pneumococcal Conjugate Vacci ne, 20-valent ([id number]) 03/12/2022 Pneumococcal Polysaccharide PPV23 (Pneumovax) 08/22/2009,06/15/2006 Seasonal [...] * Telephone Encounter - ELISSA Snider - 08/10/2022 10:44 AM EST Needs Eliquis today is completely OUT Pending Prescriptions: Disp Refills clonazePAM 0.5 MG Oral Tablet (KlonoPIN) 60 Tab*0 Sig: Take 1 Tablet (0.5 mg) by mouth in the morning and 1 Tablet (0.5 mg) before bedtime. Apixaban 5 MG Oral Tablet (Eliquis) 180 Ta*3 Sig: Take 1 Tablet (5 mg) by mouth in the morning and 1 Tablet (5 mg) before bedtime. 10mg twice a day x 7 days then 5mg twice a day . Last Visit: 08/06/2022 (in office), 07/27/2022 (telemedicine) Next Visit: 08/30/2022 Last date the medication was ordered: Patient [...] obesity with BMI of 50.0-59.9, adult ([facility]) E66.01, Z68.43 Controlled substance agreement signed Z79.899 Chronic diastolic congestive heart failure ([facility]) I50.32 Mild episode of recurrent major depressive disorder ([facility]) F33.0 Lumbar radiculopathy M54.16 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, NYHA class 1 and CKD stage 3 ([facility]) I13.0, I50.30, N18.30 Hyperparathyroidism, secondary renal ([facility]) N25.81 Vasculitis ([facility]) I77.6 Primary osteoarthritis of left knee M17.12 Spinal stenosis of lumbar region without neurogenic claudication M48.061 Heparin 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) D75.829 Atherosclerosis of solomon coronary arter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 I25.10 Carotid artery stenosis, asymptomatic, right I65.21 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 Encounter for long-term (current) use of other medications Z79.899 Type 2 diabetes mellitus with stage 3b chronic kidney disease ([facility]) E11.22, N18.32 Type 2 diabetes mellitus with hemoglobin A1c goal of less than 8.0% ([facility]) E11.9 Recurrent deep vein thrombosis (DVT) of both lower extremities ([facility]) I82.403 Chronic hypoxemic respiratory failure ([facility]) J96.11 Chronic kidney disease, stage 3b ([facility]) N18.32 Labs: Lab Results Component Value Date/Time CREATININE - [facility] 1.5 (H) 07/02/2022 03:11 PM CREATININE - [facility] 2.0 (H) 05/06/2020 08:46 AM CREATININE JOHNNY 50 09/04/2018 02:27 PM CREATININE, RANDOM URINE - [facility] 74 01/07/2022 12:06 PM CREATININE, RANDOM URINE - [facility] 52 12/24/2019 07:28 AM CREATININE-OUTSIDE LAB 1.54 (A) 12/26/2021 12:00 AM Lab Results Component Value Date/Time POTASSIUM - [facility] 4.1 07/02/2022 03:11 PM POTASSIUM - [facility] 4.0 05/06/2020 08:46 [...] Care Team Description 08/13/2022 Laboratory Laboratory Processing Gm, [facility] [address] [place] [address] 08/17/2022 Home Visit [facility] Brooke Jose RN [address] [place] [address] 08/25/2022 Office Visit Pulmonary Nikita Sanchez MD [address] [place] [address] 08/30/2022 Office Visit Family Medicine Galdino Andujar, DO [address] [place] [address] 09/13/2022 Office Visit Family Medicine Galdino Andujar, DO [address] [place] [address] 01/19/2023 PulmDiagnostic Pulmonary Function [place], [address] [facility] [place] [address] 08/08/2023 Nurse Only [employer]illary [employer], Nurse Annual Wellness Visit [address] [place] [address] Scheduled Procedures Name Priority Associated Diagnoses Date/Ti [...] Additional history exists CKD PHOS USE SMARTSET 80869 01/07/202312/25, 03/12/2021, 11/17/2020, Additional history exists DIABETES-FOOT EXAM 01/07/2023 01/07/2022, 0 01/14/2021, 11/07/2019, Additional history exists TSH FOR THYROID MEDICATION MONITORING YEARLY 01/07/2023 01/07/2022, 12/25/2020, 05/06/2020, Additional history exists DIABETES-EYE EXAM 05/24/2023 05/24/2022, , 04/07/2020, Additional history exists CKD HGB USE SMARTSET 14462 06/29/202306/29, 06/29/2022, 01/07/2022, Additional history exists Depression [...] on File Type Date Recorded 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 No Healthcare Agents on File Name Relationship Healthcare Agent Relationship Communication Galdino Camp Other - (no specific identity) Health Care Power of Paste Mixing Supervisor Princess Other - (no specific identity) Health Care Power of Paste Mixing Supervisor Care Teams Student Career Development Specialist Relationship Specialty Start Date End Date Galdino Andujar, DO [address] [place] [address] PCP - General Internal Medicine 01/07/22 documented as of this encounter
--- OUTSIDE RECORDS SUMMARY | 2023-06-01 04:26 | External Medical Summary | Summary of Care ---
Author Name Unknown Organization [place] [address] Care Team Providers Care Video Surveillance Technician Name Role Phone Galdino Andujar DO Primary Care Provider [phone] Reason for Visit * Reason Comments Medication Management Encounter Details Date Type Department Care Team Description 08/05/2022 Pharmacy Family Practice [address] [facility] [place] [address] [place] [phone] [place], Pharmacist [address] [address] Type 2 diabetes mellitus with hemoglobin A1c goal of less than 8.0% ([facility])* Allergies Active Allergy Reactions Severity [...] 0 0 Active Blood Glucose Monitoring Suppl ([employer] Domain Media GroupTOUCH ULTRA 2) w/Device KIT Use to test [...] times daily 500 Each 3 2 Active Zeterauch Ultra Blue In Vitro Strip (Glucose Blood) [...] for Nausea. 90 Tablet 6 2 Active Dicyclomine HCl 20 MG Oral Tablet (Bentyl) Take by mouth 1 Tablet as needed in the morning AND 1 Tablet as needed at noon AND 1 Tablet as needed in the evening AND 1 Tablet as needed before bedtime for Pain, Mild. For abdominal pain. 450 Tablet 3 2 Active NovoLOG FlexPen 100 UNIT/ML Subcutaneous Solution Pen-injector (insulin aspart)Indications :Type 2 diabetes mellitus with hemoglobin A1c goal of 7.0%-8.0% (HCC) Inject 40 units with meals + sliding scale 1 units for every 25 units BG > 150. 121 mL 3 2 Active Apixaban 5 MG Oral Tablet (Eliquis) Take by mouth 1 Tablet in the morning AND 1 Tablet before bedtime. 10mg twice a day x 7 days then 5mg twice a day . 180 Tablet 3 2 Active Gabapentin 300 MG Oral Capsule (Neurontin) Take by mouth 1 Capsule in the morning AND 1 Capsule before bedtime. 200 Capsule 3 2 Active Nortriptyline HCl 50 MG [...] less than 8.0% ([facility]) Take by mouth 1 Tablet in the morning. 100 Tablet 1 2 Active DULoxetine HCl 60 MG Oral Capsule Delayed Release Particles (Cymbalta)Indicati ons:Fibromyalgia,M oderate episode of recurrent major depressive disorder (HCC),Primary osteoarthritis of both knees Take by mouth 1 Capsule in the morning. Along with 30 mg capsule to total 90 mg daily.. 100 Capsule 3 2 Active Additional Information Patient taking differently:60 mg Oral Daily(AM),Take 1 capsule daily, Reported on 08/05/2022 Levothyroxine Sodium 200 MCG Oral Tablet (Levoxyl)Indicatio [...] before bedtime. 200 Capsule 3 2 Active clonazePAM 0.5 MG Oral Tablet (KlonoPIN)Indicati ons:Anxiety state Take by mouth 1 Tablet in the morning AND 1 Tablet before bedtime. 60 Tablet 0 2 Active Tresiba FlexTouch 100 UNIT/ML Subcutaneous [...] 0 Active Furosemide 40 MG Oral Tablet (Lasix)Indications [...] Pain, Severe. 60 Tablet 0 2 Active Cefdinir 300 MG Oral Capsule (Omnicef) 1 Capsule (300 mg). 0 2 Active Cholecalciferol 25 MCG (1000 UT) Oral Capsule Take 1 Capsule (1,000 Units) by mouth in the morning. 90 Capsule 3 2 Active Sennosides-Docusat e Sodium 8.6-50 MG Oral Tablet (Senna Plus) Take 1 Tablet by mouth in the morning and 1 Tablet before bedtime. 0 2 Active docusate sodium (STOOL SOFTENER) 100 MG Capsule Take 1 Capsule (100 mg) by mouth in the morning and 1 Capsule (100 mg) before bedtime. 0 022 Discontinued(Me dication List Clean Up) Nerve Pain Relief Sublingual Tablet SublingualIndicati ons:pt taking Nervive, nerve relief tablets at bedtime Take by mouth . 0 Discontinued(Me dication List Clean Up) Cholecalciferol 125 MCG (5000 UT) Oral Capsule Take 1,000 Units by mouth daily. 0 Discontinued Dexcom G6 Evaluation Analyst Device Use as directed . Supplied by [employer]. [phone] 0 Discontinued(Me dication List Clean Up) Dexcom G6 Sensor Use as directed . Change every 10 days Supplied by [employer]. [phone] 0 Discontinued(Me dication List Clean Up) Dexcom G6 Transmitter Use as directed. Change every 90 days Supplied by [employer] [phone] 0 Discontinued(Me dication List Clean Up) Doxycycline Hyclate 100 MG Oral Capsule 1 Capsule (100 mg). 0 2 Discontinued(Me dication List Clean Up) Hospital, Clinic, or Other Facility Administered Medication Ordered Dose Route Frequency Start Date End Date Status Albuterol Sulfate (Proventil) (2.5 MG/3ML) 0.083% inhalation solution 2.5 mgIndications:Examiner Rating Clerk zahra hypoxemic respiratory failure (HCC) 2.5 mg NEBULIZER Q4H PRN 10/08/2021 08/06/2022 Discontinue d documented as of this encounter (statuses as of 08/06/2022) Active Problems Problem Noted Date Chronic kidney disease, stage 3b Overview: Per [...] 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/31/2021 Atherosclerosis of [place] coronary arter 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 12/31/2021 [...] mRNA, LNP-s, No Pre serve, 2-Dose Series ([employer] 01/08/2021,12/18/2020 COVID-19, LNP-s, No Preserve , Navarro-sucrose, Ages 12+ (Pfizer) 2022,10/01/2021 Pneumococcal Conjugate Vacci ne, 20-valent ([id number]) 03/12/2022 Pneumococcal Polysaccharide PPV23 (Pneumovax) 08/22/2009,06/15/2006 Seasonal [...] got money to buy more. Never true 08/05/2022 Within the past 12 months, t he food you bought just didn't last and you didn't have money to get more. Never true 08/05/2022 Sex Assigned at Date Recorded Female 11/07/2019 2:[address] Job Start Date Occupation Industry Not on file Not on file Not on file documented as of this encounter Progress Notes * Damián Terrell, [facility] - 08/05/2022 2:06 PM EST Medication Therapy [facility] - Medication Reconciliation Stephanie Camp is an 67 year old being seen for medication reconciliation. Prescription insurance information: [employer] Do you have any other prescription coverage: Yes, [employer] Preferred pharmacy: [facility] ([facility]) [x] Problem list reviewed [x] Allergies reviewed and updated if needed [x] Drug interaction check completed [x] HEDIS list addressed Immunizations: not interested in Bivalent Covid Vaccine Medication Organization/Adherence: Has home care nurse or caregiver: yes Patient uses a pill box? Yes, refill(s) completed by home nurse helps When you are at home, how often do you miss doses of medications? Never How difficult is it for you to pay for your medications? Not difficult at all How often do you experience side effects from your medications? Weekly Drowsiness Labs/Vitals/Risk Scores: The ASCVD Risk score (Marylu FRANK, et al., 2019) failed to calculate for the following reasons: The patient has a prior IN or stroke diagnosis BP Readings from Last 3 Encounters: 08/05/22 124/60 08/03/22 132/58 07/26/22 120/66 Recent Labs Units 05/12/22 1504 01/07/22 1156 11/17/20 1300 HEMOGLOBIN A1C - ISINGER % 7.6* 7.8* 8.3* Recent Labs Units 07/02/22 1511 06/18/22 1521 05/12/22 1504 ESTIMATED GLOMERULAR FILTRATION RATE - [facility] mL/min 38* 43* 45* Serum creatinine: 1.5 mg/dL (H) 07/02/22 1511 Estimated creatinine clearance: 53.1 mL/min (A) Assessment & Plan: Medication discrepancies identified: Pt had 2 strengths of vit D 400iu and 1000iu (pt states she take 1000iu OTC) Nortriptyline 50mg fill date on bottle was Nov 17 (pt states she needs to take it for pain and is compliant) Gabapentin 300mg fill date on bottle April 16 (pt states she is compliant) Pt states she combines fills in old bottles. Duloxetine 60mg- pt states she is no longer taking the 30mg with the 60mg (90mg) Pt is no longer taking dicyclomine and cyclobenzaprine. Pt is taking Senna plus docusate 8.6/50mg twice daily (OTC) Dose/frequency of medications appropriate for current renal function? yes Other medication problems identified: pt taking both Percocet and Clonazepam. This is a potentiallydangerous combination. Patient education provided: Spoke with pt about anticholinergic medications being more dangerous aswe get older. Also spoke with patient about the combination of Percocet and Clonazepam being dangerous. Referral pended for follow up management of: DM Summary- Changes & Recommendations: Cyclobenzaprine and Dicyclomine removed from med list. Dose of Duloxetine changed to 60mg daily. Vitamin D 1000 units added to med list. Senna Plus docusate 8.6/50 added to med list. Pt educated on the dangers of polypharmacy especially in older patients. Pt is open to taking a further look at her med list for medications that could be discontinued. Repeat med rec visit scheduled in 1 year Damián Terrell [facility] Clinical Pharmacist - Lan Support Specialist Medication Therapy Management Clinic 08/05/2022, 2:06 PM documented in this encounter Miscellaneous Notes * Addendum Note - Damián Terrell RP - 08/06/2022 9:53 AM ESTAddended by: DAMIÁN TERRELL on: 08/06/2022 09:53 AM Modules accepted: Orders documented in this encounter Plan of Treatment Upcoming Encounters Date Type Specialty Care Team Description 08/06/2022 Office Visit Family Medicine Galdino Andujar, DO [address] [place] [address] 08/10/2022 [facility]icine [facility] [address] [facility] [address] [place], Community Health Chairman & Ceo [address] [place] [address] 08/10/2022 Office Visit Nephrology Clover Osman PA-C [address] [place] [address] 08/17/2022 Home Visit [facility] Brooke Jose, RN [address] [facility] [place] [address] 08/25/2022 Office Visit Pulmonary Nikita Sanchez MD [address] [place] [address] 09/13/2022 Office Visit Family Medicine Galdino Andujar, DO [address] [facility] [place] [address] 01/19/2023 PulmDiagnostic Pulmonary Function West, [address] [facility] [place] [address] 08/08/2023 Nurse Only [employer], Nurse Annual Wellness Visit [address] [facility] [place] [address] Scheduled Procedures Name Priority Associated Diagnoses Date/Ti [...] Additional history exists CKD PHOS USE SMARTSET 83669 01/07/2023 0412/2021, 03/12/2021, 11/17/2020, Additional history exists DIABETES-FOOT EXAM 01/07/2023 01/07/2022, 0 01/14/2021, 11/07/2019, Additional history exists TSH FOR THYROID MEDICATION MONITORING YEARLY 01/07/2023 01/07/2022, 12/25/2020, 05/06/2020, Additional history exists DIABETES-EYE EXAM 05/24/2023 05/24/2022, , 04/07/2020, Additional history exists CKD HGB USE SMARTSET 36529 06/29/202306/29, 06/29/2022, 01/07/2022, Additional history exists Depression [...] Documents on File Type Date Recorded Patient Sports Medicine Coordinator Expl anation POLST 03/19/2020 4:25 PM [...] the patient have Health Care Power of Carbon Lamp Cleaner? No Healthcare Agents on File Name Relationship Healthcare Agent Relationship Communication Galdino Camp Other - (no specific identity) Health Care Power of Carbon Lamp Cleaner Princess Allen Other - (no specific identity) Health Care Power of Carbon Lamp Cleaner Care Teams Video Surveillance Technician Relationship Specialty Start Date End Date Galdino Andujar, DO [address] [facility] [place] [address] PCP - General Internal Medicine 01/07/22 documented as of this encounter
--- OUTSIDE RECORDS SUMMARY | 2023-06-01 04:26 | External Medical Summary | Summary of Care ---
Author Name Unknown Organization [place] [address] Care Team Providers Care Supply Chain Procurement Manager Name Role Phone Galdino Andujar DO Primary Care Provider [phone] Reason for Visit * Reason Comments Medication Management Encounter Details Date Type Department Care Team Description 08/05/2022 Pharmacy Family Practice 65 [facility] [place] [address] [place] [id number] Spry, Pharmacist [address] [address] Type 2 diabetes mellitus with hemoglobin A1c goal of less than 8.0% ([facility])* Allergies Active Allergy Reactions Severity Noted Date Comments Codeine 07/08/2014 hallucination Pollen 05/18/2019 Heparin 09/04/2009 Heparin Induced Thrombocytopenia Hydrocodone Neuro complications (Please comment) 07/28/2020 Empagliflozin Other (Please comment) Medium 05/17/2018 3 yeast infections in 6 weeks after starting Morphine And Related 09/16/1997 Hallucinations Tetanus Toxoid Other (Please comment) 06/15/2011 Passed out documented as of this encounter (statuses as of 08/05/2022) Medications Medication Sig Dispensed Refills Start Date End Date Status docusate sodium (STOOL SOFTENER) 100 MG Capsule Take 1 Capsule (100 mg) by mouth in the morning and 1 Capsule (100 mg) before bedtime. 0 Active ONETOUCH DELICA LANCETS 33G MISC Check blood sugars 3-4 times daily 180 Each 5 8 Active oxygen GASIndications:ELISSA (obstructive sleep apnea) 2 lpm continuous 0 03/04/202 0 Active omeprazole (PRILOSEC) 20 MG CPDR Take 1 Cap by mouth daily. 90 Cap 3 0 Active DIURETIC TITRATION PLANIndications:Chr onic diastolic congestive heart failure (HCC) If no improvement on day 3, contact heart failure managing provider. 1 Each 0 0 Active Blood Glucose Monitoring Suppl ([employer] ULTRA 2) w/Device KIT Use to test BG values 1 Kit 0 0 Active Acetaminophen 500 MG Oral Tablet Take 500 mg by mouth every 6 hours as needed. 0 Active Meclizine HCl 12.5 MG Oral Tablet (Antivert)Indicatio ns:Vertigo Take 1 Tab by mouth 3 times a day as needed for Dizziness. 30 Tab 1 1 Active Nerve Pain Relief Sublingual Tablet SublingualIndicatio ns:pt taking Nervive, nerve relief tablets at bedtime Take by mouth . 0 Active CPAP every night at bedtime. 0 Active metOLazone 2.5 MG Oral Tablet (Zaroxolyn) Take 2.5 mg by mouth daily as needed. Do not take unless instructed by provider 0 Active BD Pen Needle Short U/F 31G X 8 MM (Insulin Pen Needle) use five times daily 500 Each 3 2 Active Medallion Learninguch Ultra Blue In Vitro Strip (Glucose Blood) [...] AT BEDTIME 100 Capsule 3 2 Active Dexcom G6 Women'S Activities Adviser Device Use as directed . Supplied by [employer], [employer]. [phone] 0 Active Dexcom G6 Sensor Use as directed . Change every 10 days Supplied by [employer], [employer]. [phone] 0 Active Dexcom G6 Transmitter Use as directed. Change every 90 days Supplied by [employer]. [phone] 0 Active rOPINIRole HCl 2 MG Oral Tablet (Requip)Indications :Restless legs syndrome TAKE ONE TABLET BY MOUTH AT BEDTIME 100 Tablet 3 2 Active metFORMIN HCl ER 500 MG Oral Tablet Extended Release 24 Hour (Glucophage XR)Indications:Type 2 diabetes mellitus with hemoglobin A1c goal of less than 8.0% ([facility]) Take by mouth 1 Tablet [...] 7.0%-8.0% ([facility]) INJECT 60 UNITS UNDER THE [...] before bedtime. 300 Tablet 3 2 Active oxyCODONE-Acetamino phen 5-325 MG Oral Tablet (Percocet)Indicatio ns:Lumbar radiculopathy,Spina l stenosis of lumbar region without neurogenic claudication Take by mouth 1 Tablet every 12 hours as needed for Pain, Severe. 60 Tablet 0 2 Active Cefdinir 300 MG Oral Capsule (Omnicef) 1 Capsule (300 mg). 0 2 Active Doxycycline Hyclate 100 MG Oral Capsule 1 Capsule (100 mg). 0 2 Active Cholecalciferol 25 MCG (1000 UT) Oral Capsule Take 1 Capsule (1,000 Units) by mouth in the morning. 90 Capsule 3 2 Active Sennosides-Docusate Sodium 8.6-50 MG Oral Tablet (Senna Plus) Take 1 Tablet by mouth in the morning and 1 Tablet before bedtime. 0 2 Active Cholecalciferol 125 MCG (5000 UT) Oral Capsule Take 1,000 Units by mouth daily. 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/31/2021 Atherosclerosis of [place] coronary arter 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 12/31/2021 [...] as of this encounter (statuses as of 08/05/2022) Resolved Problems Problem Noted Date Resolved Date [...] as of this encounter (statuses as of 08/05/2022) Immunizations Name Administration Dates Next Due COVID-19 mRNA, LNP-s, No Pre serve, 2-Dose Series ([employer]) 01/08/2021,12/18/2020 COVID-19, LNP-s, No Preserve , Navarro-sucrose, Ages 12+ (Pfizer) 2022,10/01/2021 Pneumococcal Conjugate Vacci ne, 20-valent ([id number]) 03/12/2022 Pneumococcal Polysaccharide PPV23 (Pneumovax) 08/22/2009,06/15/2006 Seasonal [...] as of this encounter Progress Notes * Pop Greer, [facility] - 08/05/2022 2:06 PM EST Medication Therapy [facility] - Medication Reconciliation Stephanie Camp is an 67 year old being seen for medication reconciliation. Prescription insurance information: [employer] Do you have any other prescription coverage: Yes, [place] [employer] Preferred pharmacy: [facility] ([facility]) [x] Problem list reviewed [x] [...] has a prior HI or stroke diagnosis BP Readings from Last 3 Encounters: 08/03/22 132/58 07/26/22 120/66 07/26/22 118/62 Recent Labs Units 05/12/22 1504 01/07/22 1156 11/17/20 1300 HEMOGLOBIN A1C - MATEUSZER % 7.6* 7.8* 8.3* Recent Labs Units 07/02/22 1511 06/18/22 1521 05/12/22 1504 ESTIMATED GLOMERULAR FILTRATION RATE - RAHEELER mL/min 38* 43* 45* Serum creatinine: 1.5 mg/dL (H) 07/02/22 1511 Estimated creatinine clearance: 52.3 mL/min (A) Assessment & Plan: Medication discrepancies [...] med rec visit scheduled in 1 year Pop Greer [facility] Clinical Pharmacist - [employer]phalt [facility] Medication Therapy [facility] 08/05/2022, 2:06 PM documented in this encounter Plan of Treatment Upcoming Encounters Date Type Specialty Care Team Description 08/06/2022 Office Visit Family Medicine Galdino Andujar, DO [address] [place] [address] 08/10/2022 Telemedicine [facility] Lucia Garcia CRNP [address] [place] [address] Mira Duong, Community Health Ux Research Associate [facility] [place] [address] 08/10/2022 Office Visit Nephrology Clover Osman PA-C [address] [place] [address] 08/17/2022 Home Visit [facility] Brooke Jose RN [address] [place] [address] 08/25/2022 Office Visit Pulmonary Nikita Sanchez MD [address] [place] [address] 09/13/2022 Office Visit Family Medicine Galdino Andujar DO [address] [place] [address] 01/19/2023 PulmDiagnostic Pulmonary Function [place], Pft [address] [place] [address] 08/08/2023 Nurse Only [employer]illary [employer], Nurse Annual Wellness Visit [address] [place] [facility], [place] [address] Scheduled Procedures Name Priority Associated Diagnoses Date/Ti [...] Additional history exists CKD PHOS USE SMARTSET 77122 01/07/202312/25, 03/12/2021, 11/17/2020, Additional history exists DIABETES-FOOT EXAM 01/07/2023 01/07/2022, 0 01/14/2021, 11/07/2019, Additional history exists TSH FOR THYROID MEDICATION MONITORING YEARLY 01/07/2023 01/07/2022, 12/25/2020, 05/06/2020, Additional history exists DIABETES-EYE EXAM 05/24/2023 05/24/2022, , 04/07/2020, Additional history exists CKD HGB USE SMARTSET 47302 06/29/202306/29, 06/29/2022, 01/07/2022, Additional history exists Depression Screening, Annual for Pts 12 and Over 07/02/2023 07/02/2022, 06/12/2018 Mammogram 02/12/2024 02/11/2022, 01/0 02/2021, 07/10/2019, [...] goal of less than 8.0% ([facility])- Primary documented in this encounter Advance Directives Documents on File Type Date Recorded Patient Reaming Machine Operator For Plastic Expl anation POLST 03/19/2020 4:25 PM POLST [...] the patient have Health Care Power of Bank Messenger? No Healthcare Agents on File Name Relationship Healthcare Agent Relationship Communication Galdino Camp Other - (no specific identity) Health Care Power of Bank Messenger Princess Allen Other - (no specific identity) Health Care Power of Bank Messenger Care Teams Supply Chain Procurement Manager Relationship Specialty Start Date End Date Galdino Andujar, DO [address] [place] [address] PCP - General Internal Medicine 01/07/22 documented as of this encounter
--- OUTSIDE RECORDS SUMMARY | 2023-06-01 04:26 | External Medical Summary | Summary of Care ---
Author Name Unknown Organization [place] [address] Care Team Providers Care Asparagus Buncher Name Role Phone Galdino Andujar DO Primary Care Provider [phone] Reason for Referral * Ancillary Services (Within 10 days (routine)) - Authorized Specialty Diagnoses / Procedures Referred By Ethan chao Referred To Contact Dredging Inspector Diagnoses Type 2 diabetes mellitus with stage 3b chronic kidney disease, with long-term current use of insulin (HCC) Galdino Andujar DO [address] [place] [address] Referral ID Status Reason Start Date Expiration Date Visits Requested Visits Authorized [id number] Authorized Ancillary Services Required 2 [phone] Question Answer Referral Priority Within 10 days (routine) Comments Is Patient homebound? Yes Magnesium and BMP ordered on 08/06/2022 All sections of this form must be filled out completely. Forms with missing or illegible information will be returned for completion. This form should not be modified in any way. Forms that have been modified will be returned. This form may not be submitted by a home health agency. It must be complete and submitted by the ordering provider. One full business day lead time is required and service will be scheduled based on the next service day for the [facility]lebot[facility] does not service every geographical location on a daily basis. Contact [facility] Client Services at to find out service days for a specific location. Medical Laboratory Patient Name: Stephanie Camp : 1955 Sex: female [address] [place] [address] Provider: None? Galdino Andujar DO? Diagnosis: Tests Requested LABS ORDERED ON Reason for Visit * Reason Onset Date Comments Test Results 08/09/2022 Encounter Details Date Type Department Care Team Description 08/09/2022 Telephone Family Practice 65 [facility] [place] [address] [place] [id number] Galdino Andujar DO [address] [place] [address] Test Results Allergies Active Allergy Reactions Severity Noted Date Comments Codeine 07/08/2014 hallucination Pollen 05/18/2019 Heparin 09/04/2009 Heparin Induced Thrombocytopenia Hydrocodone Neuro complications (Please comment) 07/28/2020 Empagliflozin Other (Please comment) Medium 05/17/2018 3 yeast infections in 6 weeks after starting Morphine And Related 09/16/1997 Hallucinations Tetanus Toxoid Other (Please comment) 06/15/2011 Passed out documented as of this encounter (statuses as of 08/09/2022) Medications Medication Sig Dispensed Refills Start Date End Date Status ONETOUCH DELICA LANCETS 33G MISC Check blood sugars 3-4 times daily 180 Each 5 08/01/2018 Active oxygen GASIndications:ELISSA (obstructive sleep apnea) 2 lpm continuous 0 11/28/2019 Active omeprazole (PRILOSEC) 20 MG CPDR Take 1 Cap by mouth daily. 90 Cap 3 12/18/2019 Active DIURETIC TITRATION PLANIndications:Tag Meter Operator 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 1 Each 0 04/08/2020 Active Blood Glucose Monitoring Suppl ([employer] ULTRA 2) w/Device KIT Use to test [...] than 8.0% ([facility]) Take by mouth 1 Tablet in the [...] 08/05/2022 Levothyroxine Sodium 200 MCG Oral Tablet (Levoxyl)Indications [...] 06/18/2022 Active clonazePAM 0.5 MG Oral Tablet (KlonoPIN)Indication s:Anxiety state Take by mouth 1 Tablet in [...] 0 Active Furosemide 40 MG Oral Tablet (Lasix)Indications:B [...] 08/05/2022 Active Gabapentin 300 MG Oral Capsule (Neurontin)Indicatio ns:Restless legs syndrome,Fibromyalgi a Take 1 Capsule (300 mg) by mouth in the morning. 100 Capsule 3 08/06/2022 Active documented as of this encounter (statuses as of 08/09/2022) Active Problems Problem Noted Date Chronic kidney [...] Requip Fibromyalgia 02/02/2016 Abnormality of gait 02/02/[address] 08/19/2014 History of pulmonary [...] as of this encounter (statuses as of 08/09/2022) Resolved Problems Problem Noted Date Resolved Date [...] as of this encounter (statuses as of 08/09/2022) Immunizations Name Administration Dates Next Due COVID-19 mRNA, LNP-s, No Pre serve, 2-Dose Series (Pfizer) 01/08/2021,12/18/2020 COVID-19, LNP-s, No Preserve , Anvarro-sucrose, Ages 12+ (Pfizer) 2022,10/01/2021 Pneumococcal Conjugate Vacci ne, 20-valent ([id number]) 03/12/2022 Pneumococcal Polysaccharide PPV23 (Pneumovax) 08/22/2009,06/15/2006 Seasonal [...] Telephone Encounter - Shira Gross LPN - 08/09/2022 1:21 PM EST ----- Message from Galdino Andujar DO sent at 08/09/2022 1:00 PM EST ----- Urine culture is negative No UTI documented in this encounter Plan of Treatment Upcoming Encounters Date Type Specialty Care Team Description 08/10/2022 Telemedicine [facility] Lucia Garcia CRNP [address] [place] [address] Mira Duong, Community Health Lottery Manager [address] [place] [address] 08/17/2022 Home Visit [facility] Brooke Jose RN [address] [place] [address] 08/25/2022 Office Visit Pulmonary Nikita Sanchez MD [address] [place] [address] 08/30/2022 Office Visit Family Medicine Galdino Andujar, DO [address] [place] [address] 09/13/2022 Office Visit Family Medicine Galdino Andujar, DO [address] [place] [address] 01/19/2023 PulmDiagnostic Pulmonary Function West, Pft [address] [facility] [place] [address] 08/08/2023 Nurse Only Ancillary College, Nurse Annual Wellness Visit [address] [place] [address] Scheduled Procedures Name Priority Associated Diagnoses Date/Ti me COLONOSCOPY FLEXIBLE PROXIMAL DIAGNOSTIC Recall Colon cancer screening Scheduled Referrals Name Type Priority Associated Diagnoses Orde r Schedule HOME PHLEBOTOMY REFERRAL OP Referral Within 10 days (routine) Type 2 diabetes mellitus with stage 3b chronic kidney disease, with long-term current use of insulin (HCC) Ordered: 08/09/2022 Health Maintenance Due Date Last Done Comments [...] Additional history exists CKD PHOS USE SMARTSET 91687 01/07/202312/25, 03/12/2021, 11/17/2020, Additional history exists DIABETES-FOOT EXAM 01/07/2023 01/07/2022, 0 01/14/2021, 11/07/2019, Additional history exists TSH FOR THYROID MEDICATION MONITORING YEARLY 01/07/2023 01/07/2022, 12/25/2020, 05/06/2020, Additional history exists DIABETES-EYE EXAM 05/24/2023 05/24/2022, , 04/07/2020, Additional history exists CKD HGB USE SMARTSET 36794 06/29/202306/29, 06/29/2022, 01/07/2022, Additional history exists Depression Screening, Annual for Pts 12 and Over 08/05/2023 08/05/2022, 06/12/2018 Mammogram 02/12/2024 02/11/2022, 010 02/2021, 07/10/2019, Additional history exists Colonoscopy: Ages [...] Documents on File Type Date Recorded Patient Geographical Historian Expl anation POLST 03/19/2020 4:25 PM POLST [...] the patient have Health Care Power of Highway Maintainer? No Healthcare Agents on File Name Relationship Healthcare Agent Relationship Communication Galdino aCmp Other - (no specific identity) Health Care Power of Highway Maintainer Princess Other - (no specific identity) Health Care Power of Highway Maintainer Care Teams Asparagus Buncher Relationship Specialty Start Date End Date Galdino Andujar, DO [address] [place] [address] PCP - General Internal Medicine 01/07/22 documented as of this encounter
--- OUTSIDE RECORDS SUMMARY | 2023-06-01 04:26 | External Medical Summary | Summary of Care ---
Author Name Unknown Organization [place] [address] Care Team Providers Care Pharmacy Assistant Name Role Phone Galdino Andujar DO Primary Care Provider [phone] Reason for Visit * Reason Onset Date Comments Adult Annual Wellness Visit, Initial Visit Adult Annual Wellness Visit, Initial Visit 08/05 Encounter Details Date Type Department Care Team Description 08/05/2022 Nurse Only Ancillary [address] [facility] [address] [place] [address] College, Nurse Annual Wellness Visit [address] [place] [address] Adult Annual Wellness Visit, Initial Visit... 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 1 Each 0 04/08/2020 Active Blood Glucose Monitoring Suppl (ENJOREUCH ULTRA 2) w/Device KIT Use to test BG values 1 Kit 0 05/20/2020 Active Acetaminophen 500 MG Oral Tablet Take 500 mg by mouth every 6 hours as needed. 0 Active Meclizine HCl 12.5 MG Oral Tablet (Antivert)Indication s:Vertigo Take 1 Tab by mouth 3 times a day as needed for Dizziness. 30 Tab 1 12/29/2020 Active Nerve Pain Relief Sublingual Tablet SublingualIndication s:pt taking Nervive, nerve relief tablets at bedtime [...] times daily 500 Each 3 11/04/2021 Active [employer] Ultra Blue In Vitro Strip (Glucose Blood) [...] 7.0%-8.0% ([facility]) Inject 40 units with meals + sliding scale 1 units for every 25 units BG > 150. 121 mL 3 11/04/2021 Active Apixaban 5 MG Oral Tablet (Eliquis) Take by mouth 1 Tablet in the morning AND 1 Tablet before bedtime. 10mg twice a day x 7 days then 5mg twice a day . 180 Tablet 3 01/13/2022 Active Gabapentin 300 MG Oral Capsule (Neurontin) Take by mouth 1 Capsule in the morning AND 1 Capsule before bedtime. 200 Capsule 3 01/19/2022 Active Nortriptyline HCl 50 MG Oral Capsule (Pamelor)Indications :Fibromyalgia TAKE ONE CAPSULE BY MOUTH AT BEDTIME 100 Capsule 3 04/01/2022 Active Dexcom G6 Procurement Professional Device Use as directed . Supplied by [employer]. [phone] Active Dexcom G6 Sensor Use as directed . Change every 10 days Supplied by [employer]. [phone] Active Dexcom G6 Transmitter Use as directed. Change every 90 days Supplied by [employer]. [phone] Active rOPINIRole HCl 2 MG Oral Tablet (Requip)Indications: Restless legs syndrome TAKE ONE TABLET BY MOUTH AT BEDTIME 100 Tablet 3 04/15/2022 Active metFORMIN HCl ER 500 MG Oral Tablet Extended Release 24 Hour (Glucophage XR)Indications:Type 2 diabetes mellitus with hemoglobin A1c goal of less than 8.0% ([facility]) Take by mouth 1 Tablet [...] 1 Capsule (300 mg). 0 08/01/2022 Active Doxycycline Hyclate 100 MG Oral Capsule 1 Capsule (100 mg). 0 08/01/2022 Active Hospital, Clinic, or Other Facility Administered [...] thrombocytopenia (HIT) 0 12/31/2021 Atherosclerosis of [place] coronary arter 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 12/31/2021 [...] mRNA, LNP-s, No Pre serve, 2-Dose Series (TrendU) 01/08/2021,12/18/2020 COVID-19, LNP-s, No Preserve , Navarro-sucrose, Ages 12+ (Pfizer) 2022,10/01/2021 Pneumococcal Conjugate Vacci ne, 20-valent ([id number]) 03/12/2022 Pneumococcal Polysaccharide PPV23 (Pneumovax) 08/22/2009,06/15/2006 Seasonal [...] Sign Reading Time Taken Comments Blood Pressure 124/60 08/05/2022 3:44 PM EST Pulse 101 08/05/2022 3:44 PM EST Temperature 36.8 C (98.2 F) 08/05/2022 3:44 PM ES T Respiratory Rate - - Oxygen Saturation 98% 08/05/2022 3:44 PM EST Inhaled Oxygen Concentration - - Weight 145.4 kg (320 lb 8 oz) 08/05/2022 3:44 PM EST Height 165.1 cm (5' 5") 08/05/2022 3:44 PM EST Body Mass Index 53.33 08/05/2022 3:44 PM EST documented in this encounter Patient Instructions * Patient Instructions* Shira De La Rosa RN - 08/05/2022 4:05 PM EST Hi Ronald Zoë, As your primary care physician, I know that regular visits with my patients who have several chronic conditions can go a long way in helping you stay healthy. Many times, the clinic team and I are in touch with you and/or other care team members between office visits to adjust medications, discuss any changes in your health, and review our care plan to make sure it is still meeting your needs. I am dedicated to helping you take a more active role in your overall care. It is important that there are resources available to you, so I created a personalized plan of care with a Health Calendar for you, which is included on the next page of this letter. Below is a list that summarizes your electronic health record: Health Maintenance Due: Health Maintenance Due Topic Date Due Hepatitis B (1 of 3 - 3-dose series) Never done COVID-19 Vaccine (5 - Booster for Pfizer series) 06/08/2022 Current Medication List: (as of Visit date not found (in office), Visit date not found (telemedicine) ) Current Outpatient Medications Medication Sig Dispense Refill docusate sodium (STOOL SOFTENER) 100 MG Capsule Take 1 Capsule (100 mg) by mouth in the morningand 1 Capsule (100 mg) before bedtime. ONETOUCH DELICA LANCETS 33G MISC Check blood sugars 3-4 times daily 180 Each 5 oxygen GAS 2 lpm continuous omeprazole (PRILOSEC) 20 MG CPDR Take 1 Cap by mouth daily. 90 Cap 3 DIURETIC TITRATION PLAN If no improvement on day 3, contact heart failure managing provider. 1 Each 0 Blood Glucose Monitoring Suppl (Dream DinnersTOUCH ULTRA 2) w/Device KIT Use to test BG values 1 Kit 0 Acetaminophen 500 MG Oral Tablet (Acetaminophen Extra Strength) Take 500 mg by mouth every 6 hours as needed. Meclizine HCl 12.5 MG Oral Tablet (Antivert) Take 1 Tab by mouth 3 times a day as needed for Dizziness. 30 Tab 1 Nerve Pain Relief Sublingual Tablet Sublingual Take by mouth . CPAP every night at bedtime. metOLazone 2.5 [...] twice a day . 180 Tablet 3 Gabapentin 300 MG Oral Capsule (Neurontin) Take by mouth 1 Capsule in the morning AND 1 Capsulebefore bedtime. 200 Capsule 3 Nortriptyline HCl 50 MG Oral Capsule (Pamelor) TAKE ONE CAPSULE BY MOUTH AT BEDTIME 100 Capsule3 Dexcom G6 Procurement Professional Device Use as directed . Supplied by [employer]. [phone] (Patient not taking: Reported on 07/26/2022 ) Dexcom G6 Sensor Use as directed . Change every 10 days Supplied by [employer]. [phone] (Patient not taking: Reported on 07/26/2022 ) Dexcom G6 Transmitter Use as directed. Change every 90 days Supplied by [employer] [phone] rOPINIRole HCl 2 MG Oral Tablet (Requip) [...] 10 mg 5 times a day . Furosemide 40 MG Oral Tablet (Lasix) Take by mouth 1.5 Tablets in the morning AND 1.5 Tablets before bedtime. 300 Tablet 3 oxyCODONE-Acetaminophen 5-325 MG Oral Tablet (Percocet) Take by mouth 1 Tablet every 12 hours as needed for Pain, Severe. 60 Tablet 0 Cefdinir 300 MG Oral Capsule (Omnicef) 1 Capsule (300 mg). Doxycycline Hyclate 100 MG Oral Capsule 1 Capsule (100 mg). Cholecalciferol 25 MCG (1000 UT) Oral Capsule Take 1 Capsule (1,000 Units) by mouth in the morning. 90 Capsule 3 Sennosides-Docusate Sodium 8.6-50 MG Oral Tablet (Senna Plus) Take 1 Tablet by mouth in the morning and 1 Tablet before bedtime. Current Facility-Administered Medications Medication Dose Route Frequency Provider Last Rate Last Admin Albuterol Sulfate (Proventil) (2.5 MG/3ML) 0.083% inhalation solution 2.5 mg 2.5 mg Nebulizer Q4H PRN TATIANA Negrete Current List of Allergies: (as of Visit date not found (in office), Visit date not found (telemedicine) ) Review of patient's allergies indicates: Allergen Reactions Jardiance [Empagliflozin] Other (Please comment) 3 yeast infections in 6 weeks after starting Codeine hallucination Hay Fever [Pollen] Heparin Heparin Induced Thrombocytopenia Hydrocodone Neuro complications (Please comment) Morphine And Related Hallucinations Tetanus Toxoid Other (Please comment) Passed out Most Recent Lab Results: Results for orders placed or performed in visit on 07/26/22 PULSE OX W/ REST/EXERCISE, MULTIPLE (OP) Result Value Ref Range Pulse Oximetry-Initial Rest 89 Pulse Oximetry-During Exercise 72 Pulse Oximetry-Post Exercise 90 Pulse Oximetry-Post Nebulizer *Note: Due to a large number of results and/or encounters for the requested time period, some results have not been displayed. A complete set of results can be found in Results Review. Sincerely, Galdino Andujar, 08/05/2022 [facility] Calendar (as of Visit date not found (in office), Visit date not found (telemedicine) ) Care needs Care needs Last completed Due next Hepatitis B vaccine (1 of 3 - 3-dose series) --- Never done COVID-19 Vaccine (5 - Booster for Pfizer series) 2022 06/08/2022 A1C blood sugar test - every 6 months 05/12/2022 11/12/2022 Kidney Function Test 07/02/2022 12/31/2022 Urine albumin/creatinine test 01/07/2022 01/07/2023 Yearly foot exam 01/07/2022 01/07/2023 Yearly thyroid level check 01/07/2022 01/07/2023 Dilated eye exam (by eye doctor or retinal camera) 05/24/2022 05/24/2023 Mammogram 02/11/2022 02/12/2024 Colorectal cancer screening (colonoscopy 10 years, sigmoidoscopy 5 years, Cologuard 3 years, stool sample 1 year) 02/18/2016 02/17/2026 As you look over the recommended services, be sure to check with your insurance company to determine what's covered. [employer] is a great tool that helps you review your medical record online, including test results, doctor notes and your health summary. You can also schedule appointments with me and other members of your care team, request prescription refills and ask for advice related to your medical conditions at [employer].Democravise. documented in this encounter Progress Notes * Shira De La Rosa RN - 08/05/2022 3:47 PM EST AD8 Dementia Screening Interview Person answering questions: patient Remember, "Yes, a change" indicates that there has been a change in the last several years caused by cognitive (thinking and memory) problems 1. Problems with judgement (eg: problems making decisions, bad financial decisions, problems with thinking). No (0) 2. Less interest in hobbies/activities. No (0) 3. Repeats the same things over and over (questions, stories, or statements). No (0) 4. Trouble learning how to use a tool, appliance, or gadget (eg: VCR, computer, microwave, remote control). No (0) 5. Forgets correct month or year. No (0) 6. Trouble handling complicated financial affairs (eg: balancing checkbook, income taxes, paying bills). No (0) 7. Trouble remembering appointments. No (0) 8. Daily problems with thinking and/or memory. No (0) TOTAL AD8: 0 - AD8 Dementia Screening Score The final score is a sum of the number items marked "Yes, A Change". 0 - 1: Normal cognition; 2 or greater: Cognitive impairments is likely to be present - further testing required Adult Annual Wellness Visit: Stephanie Camp is a 67 year old female who presents for an Adult Annual Wellness Visit. Depression Screening: Did the patient complete the screening questionnaire for Depression? Yes Is the patient's total score for Depression 15 or greater? No, no further intervention needed, unless requested by patient. Did the patient answer positively to the suicide question? No, no further intervention needed, unless requested by patient. In general, compared to other people your age, what would you say that your health is? Fair Ht Readings from Last 1 Encounters: 08/05/22 1.651 m (5' 5") Wt Readings from Last 1 Encounters: 08/05/22 (!) 145.4 kg (320 lb 8 oz) Body Mass Index: BMI Greater than 30 Body mass index is 53.33 kg/m. BP Readings from Last 1 Encounters: 08/05/22 124/60 Medical/Surgical/Family History Reviewed: Yes Past Medical History: Diagnosis Date ELSIE (acute kidney injury) ([facility]) 06/12/2018 Allergic rhinitis due to other allergen Chronic hypoxemic respiratory failure ([facility]) 01/07/2022 Diverticulosis of colon 01/28/2006 Essential hypertension with goal blood pressure less than 140/90 02/22/2014 ELLIE (generalized anxiety disorder) 09/13/2009 Goiter Frank filter in place 08/19/2014 Heparin-induced thrombocytopenia 08/22/2009 History of pulmonary embolus (PE) 07/16/2014 HTN, goal below 140/90 Impetigo 09/27/2018 Obesity, BMI not known Perforation of intestine ([facility]) 1996 COLON -- 1996 Pneumonia in aspergillosis(484.6) 09/14/2009 Recurrent deep vein thrombosis (DVT) of both lower extremities ([facility]) 01/07/2022 Sleep apnea, obstructive Spinal stenosis of lumbar region without neurogenic claudication 07/15/2020 Spontaneous pneumothorax 09/14/2009 Statin intolerance 07/16/2014 Type 2 diabetes mellitus with hemoglobin A1c goal of less than 8.0% (HCC) 01/07/2022 Past Surgical History: Procedure Laterality Date ARTHROPLASTY KNEE TOTAL Right 07/24/14 R COLONOSCOPY, DIAGNOSTIC (RECTUM) 02/18/2016 normal, repeat 10 yrs/[facility] COLONOSCOPY, GI REFERRAL OP 01/28/06 diverticulosis--repeat 10 years INCISION OF WINDPIPE, PLANNED 06/03/2011 TRACHEOSTOMY PLANNED performed by DANNY HOLDER at OR [facility] INJECT DX/THER SUBSTANCE INTERLAMINAR LUMBAR/SACRAL W IMAGE GUIDE 05/26/2020 INJECTION SPINE LUMBAR OR SACRAL performed by Raj Ahn, DO at OR [facility] INJECT DX/THER SUBSTANCE INTERLAMINAR LUMBAR/SACRAL W IMAGE GUIDE 05/14/2021 INJECTION SPINE LUMBAR OR SACRAL performed by Raj Ahn, DO at OR [facility] INJECT DX/THER SUBSTANCE INTERLAMINAR LUMBAR/SACRAL W IMAGE GUIDE 08/13/2021 INJECTION SPINE LUMBAR OR SACRAL performed by Raj Ahn DO at OR [facility] KNEE ARTHROSCOPY/DEBRIDEMENT 07/[address] PERMANENT GASTROSTOMY TUBE 09/06/09 GASTROSTOMY WITH CONSTUCTION GASTRIC TUBE performed by AMADOU NUNEZ at [facility] REMOVAL OF THYROID GLAND 06/15/2011 THYROIDECTOMY INCLUDING SUBSTERNAL THYROID CERVICAL APPROACH performed by DANNY HOLDER at OR [facility] REMOVE GALLBLADDER 09/06/09 CHOLECYSTECTOMY performed by AMADOU NUNEZ at [facility] REPAIR RECURRENT INCISIONAL HERNIA 1999 REVISION OF COLOSTOMY, SIMPLE 1998 SACROILIAC JOINT INJECT W/GUIDANCE 07/28/2020 INJECTION SACROILIAC JOINT performed by Raj Ahn DO at OR [facility] SACROILIAC JOINT INJECT W/GUIDANCE 03/03/2022 INJECTION SACROILIAC JOINT performed by Raj Ahn DO at OR [facility] SUTURE, LARGE INTESTINE W/COLOSTOMY 1996 perforation R colon with colostomy VENA CAVA FILTER/LIGATION/CLIP 08/19/09 Gates filter placement through the right femoral 08/19/[address] Lerma at [facility] Family History Problem Relation Age of Onset Cancer Mother liver - age 45 Cancer Father lung - age 74 (smoker) Heart Disorder Brother age 45 - possible tumor COPD Brother Diabetes Grandmother (Paternal) Cancer Grandfather (Paternal) bone ca - in 70's Has patient ever had cancer? No Social History Tobacco Use Smoking status: Former Packs/day: 1.00 Years: 15.00 Pack years: 15.00 Types: Cigarettes Quit date: 08/26/1997 Years since quittin.9 Smokeless tobacco: Never Substance Use Topics Alcohol use: Not Currently Comment: rare Vaping/E-Cigarette Use Vaping/E-Cigarette Use Never User Vaping/E-Cigarette Substances Vaping/E-Cigarette Devices Tobacco/Alcohol screening completed today? Yes Hospital Care: Admissions (within the last year): Hospital, Location: [facility] Date of Admission: 07/29/22, 07/15/22, 06/10/22, 09/20/21 ER within 30 days: Yes, when: 07/28/22 and where: [facility] Does the patient have an Advance Directives/Living Will? Yes Last Physical Exam: Last physical exam: 07/02/2022 Does patient see primary provider regularly? Yes Does patient see other providers? Yes, Specialist Patient Care Team updated? Yes Review of patient's allergies indicates: Allergen Reactions Jardiance [Empagliflozin] Other (Please comment) 3 yeast infections in 6 weeks after starting Codeine hallucination Hay Fever [Pollen] Heparin Heparin Induced Thrombocytopenia Hydrocodone Neuro complications (Please comment) Morphine And Related Hallucinations Tetanus Toxoid Other (Please comment) Passed out Immunization History Administered Date(s) Administered COVID-19 mRNA, LNP-s, No Preserve, 2-Dose Series (TrendU) 12/18/2020, 01/08/2021 COVID-19, LNP-s, No Preserve, Navarro-sucrose, Ages 12+ (Pfizer) 10/01/2021, 2022 Pneumococcal Conjugate Vaccine, 20-valent ([id number]) 03/12/2022 Pneumococcal Polysaccharide PPV23 (Pneumovax) 06/15/2006, 08/22/2009 Seasonal Influenza, Quadrivalent Hd (Fluzone Hd) 07/20/2021, 06/18/2022 Seasonal Influenza, Quadrivalent, No Preserve, 6 Mons & Above, IM 07/14/2017, 06/12/2018, 07/23/2019 Seasonal Influenza, Quadrivalent, No Preserve, Adjuvanted, 65+ Yrs, IM 06/13/2020 Seasonal Influenza, Quadrivalent, No Preserve, IM 07/24/2015, 06/24/2016 Seasonal Influenza, Split, IIV3, With Preserve, Inj 09/04/2002, 08/07/2004, 10/19/2006, 08/14/2007, 07/04/2008, 08/01/2009, 06/15/2010, 06/28/2011, 07/07/2012, 06/13/2014 Varicella Zoster Vaccine (Adult) 12/11/2015 Zoster Vaccine Recombinant (Shingrix) 11/07/2019, 05/08/2020 Current Outpatient Medications Medication Sig Dispense Refill docusate sodium (STOOL SOFTENER) 100 MG Capsule Take 1 Capsule (100 mg) by mouth in the morningand 1 Capsule (100 mg) before bedtime. ENJOREUCH DELICA LANCETS 33G MISC Check blood sugars 3-4 times daily 180 Each 5 oxygen GAS 2 lpm continuous omeprazole (PRILOSEC) 20 MG CPDR Take 1 Cap by mouth daily. 90 Cap 3 DIURETIC TITRATION PLAN If no improvement on day 3, contact heart failure managing provider. 1 Each 0 Blood Glucose Monitoring Suppl (ENJOREUCH ULTRA 2) w/Device KIT Use to test BG values 1 Kit 0 Acetaminophen 500 MG Oral Tablet (Acetaminophen Extra Strength) Take 500 mg by mouth every 6 hours as needed. Meclizine HCl 12.5 MG Oral Tablet (Antivert) Take 1 Tab by mouth 3 times a day as needed for Dizziness. 30 Tab 1 Nerve Pain Relief Sublingual Tablet Sublingual Take by mouth . CPAP every night at bedtime. metOLazone 2.5 MG Oral Tablet (Zaroxolyn) Take 2.5 mg by mouth daily as needed. Do not take unless instructed by provider BD Pen Needle Short U/F 31G X 8 MM (Insulin Pen Needle) use five times daily 500 Each 3 [employer] Ultra Blue In Vitro Strip (Glucose Blood) [...] twice a day . 180 Tablet 3 Gabapentin 300 MG Oral Capsule (Neurontin) Take by mouth 1 Capsule in the morning AND 1 Capsulebefore bedtime. 200 Capsule 3 Nortriptyline HCl 50 MG Oral Capsule (Pamelor) TAKE ONE CAPSULE BY MOUTH AT BEDTIME 100 Capsule3 Dexcom G6 Procurement Professional Device Use as directed . Supplied by [employer] [phone] (Patient not taking: Reported on 07/26/2022 ) Dexcom G6 Sensor Use as directed . Change every 10 days Supplied by [employer]. [phone] (Patient not taking: Reported on 07/26/2022 ) Dexcom G6 Transmitter Use as directed. Change every 90 days Supplied by [employer] [phone] rOPINIRole HCl 2 MG Oral Tablet (Requip) [...] 10 mg 5 times a day . Furosemide 40 MG Oral Tablet (Lasix) Take by mouth 1.5 Tablets in the morning AND 1.5 Tablets before bedtime. 300 Tablet 3 oxyCODONE-Acetaminophen 5-325 MG Oral Tablet (Percocet) Take by mouth 1 Tablet every 12 hours as needed for Pain, Severe. 60 Tablet 0 Cefdinir 300 MG Oral Capsule (Omnicef) 1 Capsule (300 mg). Doxycycline Hyclate 100 MG Oral Capsule 1 Capsule (100 mg). Cholecalciferol 25 MCG (1000 UT) Oral Capsule Take 1 Capsule (1,000 Units) by mouth in the morning. 90 Capsule 3 Sennosides-Docusate Sodium 8.6-50 MG Oral Tablet (Senna Plus) Take 1 Tablet by mouth in the morning and 1 Tablet before bedtime. Current Facility-Administered Medications Medication Dose Route Frequency Provider Last Rate Last Admin Albuterol Sulfate (Proventil) (2.5 MG/3ML) 0.083% inhalation solution 2.5 mg 2.5 mg Nebulizer Q4H PRN TATIANA Negrete Patient Active Problem List Diagnosis Code Dyslipidemia E78.5 Postsurgical hypothyroidism E89.0 ELISSA (obstructive sleep apnea) G47.33 Venous insufficiency I87.2 Essential hypertension with goal blood pressure less than 140/90 I10 History of pulmonary embolus (PE) Z86.711 Statin intolerance Z78.[address] Z95.828 Fibromyalgia M79.7 Abnormality of gait R26.9 Restless legs syndrome G25.81 Gastroesophageal reflux disease with esophagitis K21.00 Morbid obesity with BMI of 50.0-59.9, adult (HCC) E66.01, Z68.43 Controlled substance agreement signed Z79.899 Chronic diastolic congestive heart failure ([facility]) I50.32 Mild episode of recurrent major depressive disorder ([facility]) F33.0 Lumbar radiculopathy M54.16 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, NYHA class 1 and CKD stage 3 ([facility]) I13.0, I50.30, N18.30 Hyperparathyroidism, secondary renal ([facility]) N25.81 Vasculitis ([facility]) I77.6 Primary osteoarthritis of left knee M17.12 Spinal stenosis of lumbar region without neurogenic claudication M48.061 Heparin 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) D75.829 Atherosclerosis of [place] coronary arter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 I25.10 Carotid artery stenosis, asymptomatic, right I65.21 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 Encounter for long-term (current) use of other medications Z79.899 Type 2 diabetes mellitus with stage 3b chronic kidney disease ([facility]) E11.22, N18.32 Type 2 diabetes mellitus with hemoglobin A1c goal of less than 8.0% ([facility]) E11.9 Recurrent deep vein thrombosis (DVT) of both lower extremities ([facility]) I82.403 Chronic hypoxemic respiratory failure ([facility]) J96.11 Chronic kidney disease, stage 3b ([facility]) N18.32 Medication Compliance: Patient is able to obtain all of her medications? Yes Patient takes medications as prescribed? Yes Patient manages own medications: No Patient uses a pill box? Yes, refill(s) completed by nurse Dental Exam: No Eye Screening: Yes: Every year Are you having trouble with hearing? No Do you use an assistive device to help your hearing? No Exercise Screening: only the exercise associated with activities at work Nutrition Assessment: Eats a balanced diet and eats 2 -3 times a day Pain Screening: Are you having any pain? Yes. Pain Scale: 5 out of 10; Location: legs and knees, When: chronic, Duration: years, Aggravating Factors: increased activity, Relieved by: tylenol, rest Sleep Screening Tool 'STOP': 1. Do you snore? Yes 2. Do you feel fatigued during the day? No 3. Do you wake up feeling like you haven't slept? No 4. Have you been told you stop breathing at night? Yes 5. Do you gasp for air or choke while sleeping? No 6. Have you been told you have Sleep Apnea? Yes 7. Do you have high blood pressure or are on medication(s) to control high blood pressure? Yes SCORE: If you check YES to two or more questions, make a referral for Obstructive Sleep Apnea Pt diagnosed with sleep apnea and uses c-pap nightly Patient and Caregiver Support System: Patient lives alone Means of Transportation: Drives. Not a concern. Patient lives in [place] Community Resources: Personal Care Services Functional Status and ADL Skills: Has patient ever had an amputation? No Functional Assessment: 70- Cares for self: unable to carry on normal activity or active work Ambulation: Patient ambulates with assistive device. Cane and Walker Dressing: Gets clothes and dresses without any assistance: Independent Able to move freely in chair or bed including turning over: Independent Repositioning (bed or chair): Not applicable Transfers: Independent Toileting: Goes to bathroom, uses toilet, arranges clothes and returns without any assistance: Independent Toileting: continent of bowel and incontinent of bladder-wears pad for urinary leakage Feeding: Self Bathing: Self; walk in shower, shower chair, grab bars, textured floor in shower, steps out on to amat Requires none assistance with ADLs. Instrumental ADL's: Shopping: Independent Housekeeping: Independent Handling Finances: Independent DME Vendor Name: [employer] for oxygen supplies Fall Risk Assessment: Can the patient demonstrate that she can stand from a sitting position? Yes Has the patient had a fall within the last 6 months? Yes Does the patient have a problem with her gait or balance? Yes Does the patient take 4 or more prescription medicines? Yes Does the patient use sedatives or narcotics? No Fall Risk Factors Present: History of falls within the past 6 months Yes Cause of fall: illness Uses more than 4 medications Uses assistive devices Balance or gait disturbances Lower extremity weakness Elr-Ep-yen-Go Test: Time began at 3:15. Patient stood from sitting position and walked approximately 10 feet, returned and sat down. Total time for obw-cr-kqc-go test was 10 seconds. Sfn-Yo-tiu-Go Test completed? Yes Gender Specific Preventative Plan: Health Maintenance Topic Date Due Hepatitis B (1 of 3 - 3-dose series) Never done COVID-19 Vaccine (5 - Booster for Pfizer series) 06/08/2022 DIABETES-HGBA1C EVERY 6 MONTHS 11/12/2022 GFR - Renal Function 12/31/2022 Alb / Creat Ratio 01/07/2023 DIABETES-FOOT EXAM 01/07/2023 CKD PHOS USE SMARTSET 30036 01/07/2023 TSH FOR THYROID MEDICATION MONITORING YEARLY 01/07/2023 DIABETES-EYE EXAM 05/24/2023 CKD HGB USE SMARTSET 82954 06/29/2023 Depression Screening, Annual for Pts 12 and Over 07/02/2023 Mammogram 02/12/2024 Colorectal Cancer Screening (Colonoscopy 10 Years; Sigmoidoscopy 5 Years; Cologuard 3 Years; FOBT 1 Year): Ages 45-75 02/17/2026 Influenza Vaccine (FLU shot) Completed Zoster Vaccines Completed Pneumococcal Vaccine: 65+ Years Completed MENINGOCOCCAL (MENACTRA/MENVEO) Aged Out GARDASIL-HPV IMMUNIZATION SERIES Aged Out Follow Up/ Referrals/Handouts: No further action needed Routine general medical examination at a health care facility (Primary) Chronic diastolic congestive heart failure (HCC) Venous insufficiency Atherosclerosis of [place] coronary artery of [place] heart without angina pectoris Carotid artery stenosis, asymptomatic, right Continue to monitor and with current medication. Continue to follow with cardiology Mild episode of recurrent major depressive disorder (HCC) Pt scored 8 on depression screening today-mild depression. Pt states she follows with her psychologist Continue to monitor and with current medication. Continue to follow with psychologist. 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, NYHA class 1 and CKD stage 3 (HCC) Essential hypertension with goal blood pressure less than 140/90 BP Readings from Last 3 Encounters: 08/05/22 124/60 08/03/22 132/58 07/26/22 120/66 Continue to monitor and with current medication Type 2 diabetes mellitus with hemoglobin A1c goal of less than 8.0% (HCC) Type 2 diabetes mellitus with stage 3b chronic kidney disease, with long-term current use of insulin ([facility]) Hemoglobin AIC Results: Lab Results Component Value Date/Time HEMOGLOBIN A1C - [facility] 7.6 (H) 05/12/2022 03:04 PM HEMOGLOBIN A1C - [facility] 7.8 (H) 01/07/2022 11:56 AM HEMOGLOBIN A1C - [facility] 8.3 (H) 11/17/2020 01:00 PM HEMOGLOBIN A1C - [facility] 7.3 (H) 01/23/2020 11:11 AM HEMOGLOBIN A1C - [facility] 8.3 (H) 11/07/2019 03:04 PM HEMOGLOBIN A1C - [facility] 9.4 (H) 08/09/2019 11:02 AM Continue to monitor and with current medication Recurrent deep vein thrombosis (DVT) of both lower extremities (HCC) History of pulmonary embolus (PE) Continue to monitor and with current medication Chronic hypoxemic respiratory failure (HCC) Continue to monitor and with current medication. Continue with O2 at 2L continuously. Continue to follow with pulmonology Dyslipidemia Lab Results Component Value Date/Time LDL CHOLESTEROL (CALCULATED) - [facility] 120 07/02/2022 03:11 PM LDL CHOLESTEROL (CALCULATED) - [facility] UNINTERPRETABLE RESULT 03/14/2019 01:54 PM LDL CHOLESTEROL (DIRECT MEASURE) - [facility] 126 03/14/2019 01:54 PM LDL CHOLESTEROL (DIRECT MEASURE) - [facility] 109 07/14/2017 12:35 PM Continue to monitor diet and with current medication Postsurgical hypothyroidism TSH Results: Lab Results Component Value Date/Time TSH - [facility] 0.95 01/07/2022 11:56 AM TSH - [facility] 3.88 12/25/2020 10:10 AM TSH - [facility] 5.35 (H) 05/06/2020 08:46 AM TSH - [facility] 0.88 03/14/2019 01:54 PM TSH - [facility] 3.14 05/01/2018 09:12 AM TSH - [facility] 1.960 02/26/2019 12:00 AM Continue to monitor and with current medication ELISSA (obstructive sleep apnea) Continue to monitor and with nightly use of c-pap Fibromyalgia Continue to monitor and with current medication Abnormality of gait Continue to monitor and with use of cane and walker. Fall prevention hand outs given Restless legs syndrome Continue to monitor and with current medication Gastroesophageal reflux disease with esophagitis without hemorrhage Continue to monitor diet and with current medication Hyperparathyroidism, secondary renal (HCC) Continue to monitor Primary osteoarthritis of left knee Continue to monitor and remain active. Spinal stenosis of lumbar region without neurogenic claudication Continue to monitor and follow with pain management as needed Heparin 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) Continue to monitor Leukocytoclastic vasculitis (HCC) Continue to monitor Chronic kidney disease, stage 3b (HCC) Continue to monitor and with current medication. Continue to follow with nephrology Pt has 2 covid vaccines and 2 boosters-already updated in her immunization record. Declines furtherboosters at this time. Pt had med rec done by pharmacist prior to her annual wellness visit Pt has hospital follow up appt tomorrow with Dr Andujar. States she had a 5 lb weight gain since yesterday-Dr Andujar notified and states will discuss with her tomorrow and adjust meds if needed. Pt tocall if having any further problems prior to appt. On pt's social needs questionnaire states she is lonely sometimes-denies need for any help at this time-she is following with her psychologist and he is helping her with this. Discussion with pt about importance of following with a dentist. Follow Up: Return in 1 year (on 08/05/2023) for 12 month Subsequent Adult Wellness Visit. | For: 12month Subsequent Adult Wellness Visit | Check-out note: 12 month Subsequent Adult Wellness Visit Would patient like to schedule next AWV visit? Yes Shira De La Rosa RN documented in this encounter Miscellaneous Notes * Pt Handout (on AVS) - Shira De La Rosa RN - 08/05/2022 4:05 PM EST Images from the original note were not included. 03309 Preventing Falls: Making Changes in Your Living Space Is your living space filled with hazards that could cause you to fall? Changes can make you safer. They could even save your life. Take a careful look around your home. Change what you can on your own. Hire someone or ask friends or family to help with harder tasks. Be sure to add a nonslip mat to the inside of your shower or bathtub. Always keep a nightlight on. Keep a clear path from your bed to the bathroom. Move items from higher shelves to lower ones. Remove hazards Remove things that can trip you, like throw rugs, boxes, piles of paper, or cords. Nail down rugs or carpeting if you don't want to remove them. Don't store items on stairs. Keep walkways clear. Clean up spills right away. Replace glass tables with wooden ones. They're safer if you fall. Add safety devices Add handrails to both sides of stairs. Buy a raised toilet seat. Add grab bars near the toilet and in the shower. Get grabbers to help you reach things and avoid climbing. Improve lighting Add nightlights to halls, bedrooms, and bathrooms. Put light switches at the top and bottom of stairs. Be sure each room and flight of stairs has proper lighting. Use shades or curtains to cut glare from windows. Put flashlights in each room. Replace burned-out bulbs. Get glowing light switches for room entrances. Take other precautions Use nonskid floor wax. Buy a nonslip mat and a liquid soap dispenser for the shower. Tack down carpets or use slip-resistant backing. Put most-used items within easy reach. Add bright paint or tape on the top front edge of steps. Save big jobs, such as moving furniture or other heavy objects, for family or friends. Get professional help installing grab bars. They can be unsafe if not installed the right way. Fix riskier rooms first Don't tackle everything at once. Focus on one room at a time. The bathroom is a common spot for falls, so you may want to start there. Or start with a room you spend lots of time in, such as your bedroom. Make only a few changes at once. This will give you time to adjust to them. Outside safety You might arrange for these changes yourself, or you might need to talk to your buildings and grounds director orhomeowners' association about them. Have loose boards on porches or damaged stairs repaired. Have rough edges, holes, or large cracks in sidewalks or driveways repaired. Remove hazards that could trip you, such as hoses or alana. Use high-wattage light bulbs (100 taylor or greater) near outside doors and stairs. Add handrails to outside stairs. Have them extend beyond the bottom step. Get help in winter weather with ice or snow removal. Last Reviewed Date: 01/25/202019991032-8256 [employer]. All rights reserved. This information is not intended as a substitute for professional medical care. Always follow your healthcare professional's instructions. * Pt Handout (on AVS) - Shira De La Rosa, RN - 08/05/2022 4:04 PM EST [id number] Fall Prevention Falls often take place due to slipping, tripping, or losing your balance. Millions of people fall every year and injure themselves. Among older adults in the [place] falls are the most common cause of traumatic brain injuries. Every 20 minutes, an older adult dies from a fall. Here are ways to reduceyour risk of falling again: Think about your fall. Was there anything that caused your fall that can be fixed, removed, or replaced? Make your home safe by keeping walkways clear of objects you may trip over, such as electrical cords. Use nonslip pads under rugs. Don't use area rugs or small throw rugs. Use nonslip mats in bathtubs and showers. Hang grab rails by the toilet and inside and outside the shower. Install handrails and lights on staircases. The handrails should be on both sides of the stairs. Use night lights. Don't walk in poorly lit areas. Don't stand on chairs or wobbly ladders. Use care when reaching overhead or looking up. This position can cause a loss of balance. Be sure your shoes fit well, are in good condition, and have nonslip bottoms. Wear shoes both inside and outside of your home. Don't go barefoot or wear slippers. Be cautious when going up and down stairs, curbs, and when walking on uneven sidewalks. If your balance is poor, consider using a cane or walker. Talk with your healthcare provider about having a balance assessment. If your fall was related to alcohol use, stop or limit alcohol intake. Ask your provider for help if you think you may overuse alcohol and can't stop. If your fall was related to use of sleeping medicines, talk with your provider about this. You may need to reduce your dosage at bedtime if you wake up during the night to go to the bathroom. To reduce the need for nighttime bathroom trips: o Don't drink fluids for several hours before going to bed o Empty your bladder before going to bed o Men can keep a urinal at the bedside Stay as active as you can. Balance, flexibility, strength, and endurance all come from exercise.They all play a role in preventing falls. Ask your provider which types of activity are right for you. Try to do some type of exercise every day. Get your eyes checked once a year or more often if your vision changes If you have pets, know where they are before you stand up or walk so you don't trip over them. Go over all your medicines with a pharmacist or other provider. This is to see if any of them could make you more likely to fall. Have this type of medicine review at least once every year. If your provider advises a new medicine, ask if the side effects will affect your balance. Don't move quickly from one position to another. For instance, don't stand up fast from sitting.This can cause dizziness and may lead to a fall. Sit down when putting on pants, socks, and shoes. This will make you less likely to lose your balance and fall. Always let your provider know if you have fallen since your last visit. Contact your provider right away if you're having balance problems or falling more often. Last Reviewed Date: 09/26/202119999359-7562 [employer]. All rights reserved. This information is not intended as a substitute for professional medical care. Always follow your healthcare professional's instructions. documented in this encounter Plan of Treatment Upcoming Encounters Date Type Specialty Care Team Description 08/06/2022 Office Visit Family Medicine Galdino Andujar, DO [address] [place] [address] 08/10/2022 [facility]medicine [facility] [address] [facility] [address] Mira Duong, Community Health Supervisor [employer] [address] [place] [address] 08/10/2022 Office Visit Nephrology Clover Osman PA-C [address] [place] [address] 08/17/2022 Home Visit [facility] Brooke Jose RN [address] [place] [address] 08/25/2022 Office Visit Pulmonary Nikita Sanchez MD [address] [place] [id number] 09/13/2022 Office Visit Family Medicine Galdino Andujar, DO [address] [facility] [place] [address] 01/19/2023 PulmDiagnostic Pulmonary Function [place], Pft [address] [facility] [place] [address] 08/08/2023 Nurse Only [employer], Nurse Annual Wellness Visit [address] [facility], [place] [address] Scheduled Procedures Name Priority Associated Diagnoses Date/Ti [...] Additional history exists CKD PHOS USE SMARTSET 11054 01/07/202312/25, 03/12/2021, 11/17/2020, Additional history exists DIABETES-FOOT EXAM 01/07/2023 01/07/2022, 0 01/14/2021, 11/07/2019, Additional history exists TSH FOR THYROID MEDICATION MONITORING YEARLY 01/07/2023 01/07/2022, 12/25/2020, 05/06/2020, Additional history exists DIABETES-EYE EXAM 05/24/2023 05/24/2022, , 04/07/2020, Additional history exists CKD HGB USE SMARTSET 59126 06/29/202306/29, 06/29/2022, 01/07/2022, Additional history exists Depression Screening, Annual for Pts 12 and Over 07/02/2023 08/05/2022, 06/12/2018 Mammogram 02/12/2024 02/11/2022, 02/2021, 07/10/2019, [...] as of this encounter Visit Diagnoses Diagnosis Routine general medical examination at a health care facility- Primary Chronic diastolic congestive heart failure (HCC) Chronic diastolic heart failure Mild episode of recurrent major depressive disorder (HCC) 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, NYHA class 1 and CKD stage 3 (HCC) Type 2 diabetes mellitus with hemoglobin A1c goal of less than 8.0% (HCC) Recurrent deep vein thrombosis (DVT) of both lower extremities (HCC) Chronic hypoxemic respiratory failure (HCC) Chronic respiratory failure Dyslipidemia Other and unspecified hyperlipidemia Postsurgical hypothyroidism ELISSA (obstructive sleep apnea) Obstructive sleep apnea (adult) (pediatric) Venous insufficiency Unspecified venous (peripheral) insufficiency Essential hypertension with goal blood pressure less than 140/90 History of pulmonary embolus (PE) Personal history of pulmonary embolism Fibromyalgia Mylagia and myositis, unspecified Abnormality of gait Restless legs syndrome Restless legs syndrome (RLS) Gastroesophageal reflux disease with esophagitis without hemorrhage Hyperparathyroidism, secondary renal (HCC) Secondary hyperparathyroidism (of renal origin) Primary osteoarthritis of left knee Primary localized osteoarthrosis, lower leg Spinal stenosis of lumbar region without neurogenic claudication Spinal stenosis, lumbar region, without neurogenic claudication Heparin 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) 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) Atherosclerosis of [place] coronary artery of [place] heart without angina pectoris Carotid artery stenosis, asymptomatic, right 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 No Healthcare Agents on File Name Relationship Healthcare Agent Relationship Communication Galdino Camp Other - (no specific identity) Health Care Power of Hot Plate Plywood Press Feeder Princess Allen Other - (no specific identity) Health Care Power of Hot Plate Plywood Press Feeder Care Teams Pharmacy Assistant Relationship Specialty Start Date End Date Galdino Andujar, DO [address] [facility] [place] [address] PCP - General Internal Medicine 01/07/22 documented as of this encounter
--- OUTSIDE RECORDS SUMMARY | 2023-06-01 04:26 | External Medical Summary ---
Author Name Unknown Address Unknown Organization K01:LABORATORY [facility] [place] - [address] [place] [address] Laboratory Report Ordering Provider Test Date Status JAG SHULTZ 08/06/2022 15:36:27 Final Observation Date Value Abnormality Reference (Units) Status Bacteria identified in Unspecified specimen by Culture 08/06/2022 15:36:27 No significant growth Final Performing Location LABORATORY [facility] - [address] [place] [address]
--- OUTSIDE RECORDS SUMMARY | 2023-06-01 04:26 | External Medical Summary | Summary of Care ---
Author Name Unknown Organization [place] [address] Care Team Providers Care Field Artillery Operations Man Name Role Phone Galdino Andujar DO Primary Care Provider [phone] Encounter Details Date Type Department Care Team Description 08/04/2022 Telephone Family Practice [address] [facility] [place] [address] [place] [phone] Galdino Andujar DO [address] [place] [address] Allergies Active Allergy Reactions Severity Noted Date [...] 0 0 Active Blood Glucose Monitoring Suppl (DownstreamTOUCH ULTRA 2) w/Device KIT Use to test [...] 100 Capsule 3 2 Active Dexcom G6 Rac Specialist Device Use as directed . Supplied by [employer]. [phone] 0 Active Dexcom G6 Sensor Use as directed . Change every 10 days Supplied by [employer]. [phone] Active Dexcom G6 Transmitter Use as directed. Change every 90 days Supplied by [employer] [phone] 0 Active rOPINIRole HCl 2 MG Oral Tablet ([employer]quip)Indications :Restless legs syndrome TAKE ONE TABLET BY MOUTH AT BEDTIME 100 Tablet 3 2 Active metFORMIN HCl ER 500 MG Oral Tablet Extended Release 24 Hour (Glucophage XR)Indications:Type 2 diabetes mellitus with hemoglobin A1c goal of less than 8.0% ([facility]) Take by mouth 1 Tablet in [...] Capsule (100 mg). 0 2 Active Cholecalciferol 125 MCG (5000 [...] 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/31/2021 Atherosclerosis of [place] coronary arter 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 [...] mRNA, LNP-s, No Pre serve, 2-Dose Series ([employer]) 01/08/2021,12/18/2020 COVID-19, LNP-s, No Preserve , Navarro-sucrose, Ages 12+ (Pfizer) 2022,10/01/2021 Pneumococcal Conjugate Vacci ne, 20-valent ([id number]) 03/12/2022 Pneumococcal Polysaccharide PPV23 (Pneumovax) 08/22/2009,06/15/2006 Seasonal [...] Telephone Encounter - Galdino Andujar DO - 08/06/2022 8:26 AM EST Noted * Telephone Encounter - Shira Gross LPN - 08/04/2022 3:38 PM EST Patient is coming into office for AWV tomorrow, will be bringing all medications in at that time. Will also be meeting with pharmacy to review medications. Thank you * Telephone Encounter - Galdino Andujar DO - 08/04/2022 2:59 PM EST Check current dose of Duloxetine Duloxetine was reduced to 60 mg daily prior to hospitalization documented in this encounter Plan of Treatment Upcoming Encounters Date Type Specialty Care Team Description 08/06/2022 Office Visit Family Medicine Galdino Andujar DO [address] [place] [address] 08/10/2022 Telemedicine [facility] Lucia Garcia CRNP [address] [place] [address] Mira Duong, Community Health Lubricator Granulator [address] [place] [address] 08/10/2022 Office Visit Nephrology Clover Osman PA-C [address] [place] [address] 08/17/2022 Home Visit [facility] Brooke Jose, RN [address] [place] [address] 08/25/2022 Office Visit Pulmonary Nikita Sanchez MD [address] [place] [address] 09/13/2022 Office Visit Family Medicine Galdino Andujar, DO [address] [place] [address] 01/19/2023 PulmDiagnostic Pulmonary Function [place] [address] [facility] [address] 08/08/2023 Nurse Only [employer]illary [employer], Nurse Annual Wellness Visit [address] [place] [address] Scheduled Procedures Name Priority Associated Diagnoses Date/Ti [...] Additional history exists CKD PHOS USE SMARTSET 23258 01/07/202312/25, 03/12/2021, 11/17/2020, Additional history exists DIABETES-FOOT EXAM 01/07/2023 01/07/2022, 0 01/14/2021, 11/07/2019, Additional history exists TSH FOR THYROID MEDICATION MONITORING YEARLY 01/07/2023 01/07/2022, 12/25/2020, 05/06/2020, Additional history exists DIABETES-EYE EXAM 05/24/2023 05/24/2022, , 04/07/2020, Additional history exists CKD HGB USE SMARTSET 77621 06/29/202306/29, 06/29/2022, 01/07/2022, Additional history exists Depression [...] on File Type Date Recorded Patient Manager New Product Expl anation POLST 03/19/2020 4:25 PM POLST [...] patient have Health Care Power of Medical Insurance Verifier? No Healthcare Agents on File Name Relationship Healthcare Agent Relationship Communication Galdino Camp Other - (no specific identity) Health Care Power of Medical Insurance Verifier Princess Allen Other - (no specific identity) Health Care Power of Medical Insurance Verifier Care Teams Field Artillery Operations Man Relationship Specialty Start Date End Date Galdino Andujar, DO [address] [place] [address] PCP - General Internal Medicine 01/07/22 documented as of this encounter
--- OUTSIDE RECORDS SUMMARY | 2023-06-01 04:26 | External Medical Summary | Summary of Care ---
Author Name Unknown Organization [place] [address] Care Team Providers Care Over Hauler Helper Name Role Phone Galdino Andujar DO Primary Care Provider [phone] Reason for Visit * Reason Comments Medication Management Encounter Details Date Type Department Care Team Description 08/05/2022 Pharmacy Family Practice 65 [facility] 293 [place] [phone] [place], Pharmacist [address] [address] Type 2 diabetes mellitus with hemoglobin A1c [...] 0 0 Active Blood Glucose Monitoring Suppl ([employer] ULTRA 2) w/Device KIT Use to test [...] times daily 500 Each 3 2 Active iHookup Socialuch Ultra Blue In Vitro Strip (Glucose Blood) [...] 100 Capsule 3 2 Active Dexcom G6 Life Sciences Manager Device Use as directed . Supplied by [employer], [employer]. [phone] Active Dexcom G6 Sensor Use as directed . Change every 10 days Supplied by [employer], [employer]. [phone] Active Dexcom G6 Transmitter Use as directed. Change every 90 days Supplied by [employer], [employer]. [phone] Active rOPINIRole HCl 2 MG Oral Tablet (Requip)Indications :Restless legs syndrome TAKE ONE TABLET BY MOUTH AT BEDTIME 100 Tablet 3 2 Active metFORMIN HCl ER 500 MG Oral Tablet Extended Release 24 Hour (Glucophage XR)Indications:Type 2 diabetes mellitus with hemoglobin A1c goal of less than 8.0% ([facility]) Take by mouth 1 Tablet in the [...] mRNA, LNP-s, No Pre serve, 2-Dose Series (Transinsight) 01/08/2021,12/18/2020 COVID-19, LNP-s, No Preserve , Navarro-sucrose, Ages 12+ (Pfizer) 2022,10/01/2021 Pneumococcal Conjugate Vacci ne, 20-valent ([id number]) 03/12/2022 Pneumococcal Polysaccharide PPV23 (Pneumovax) 08/22/2009,06/15/2006 Seasonal [...] this encounter Progress Notes * Pop Greer, [facility] - 08/05/2022 2:06 PM EST Medication Therapy Disease Management [facility] - Medication Reconciliation Stephanie Camp is an 67 year old being seen for medication reconciliation. Prescription insurance information: [employer] Do you have any other prescription coverage: Yes, [place] [employer] [place] Preferred pharmacy: [facility]) [x] Problem list reviewed [x] [...] following reasons: The patient has a prior [place] or stroke diagnosis BP Readings from Last [...] visit scheduled in 1 year Pop Greer [facility] Clinical Pharmacist - Station Repairer Medication Therapy Management Clinic 08/05/2022, 2:06 PM documented in this encounter Plan of Treatment Upcoming Encounters Date Type Specialty Care Team Description 08/06/2022 Office Visit Family Medicine Galdino Andujar, DO 293 [place] [address] 08/10/2022 Telemedicine [facility] Lucia Garcia CRNP [address] [place] [address] Mira Duong, Community Health Clinical Research Management Associate [facility] [place] [address] 08/10/2022 Office Visit Nephrology Clover Osman PA-C [address] [place] [address] 08/17/2022 Home Visit [facility] Brooke Jose RN [address] [place] [address] 08/25/2022 Office Visit Pulmonary Nikita Sanchez MD [address] [place] [address] 09/13/2022 Office Visit Family Medicine Galdino Andujar DO 293 [place] [address] 01/19/2023 PulmDiagnostic Pulmonary Function West, Pft 132 [place] [address] 08/08/2023 Nurse Only [employer], Nurse Annual Wellness Visit [address] [facility] [address] [facility], [place] [address] Scheduled Procedures Name Priority Associated Diagnoses Date/Ti [...] Additional history exists CKD PHOS USE SMARTSET 74978 01/07/202312/25, 03/12/2021, 11/17/2020, Additional history exists DIABETES-FOOT EXAM 01/07/2023 01/07/2022, 0 01/14/2021, 11/07/2019, Additional history exists TSH FOR THYROID MEDICATION MONITORING YEARLY 01/07/2023 01/07/2022, 12/25/2020, 05/06/2020, Additional history exists DIABETES-EYE EXAM 05/24/2023 05/24/2022, , 04/07/2020, Additional history exists CKD HGB USE SMARTSET 13870 06/29/202306/29, 06/29/2022, 01/07/2022, Additional history exists Depression [...] goal of less than 8.0% ([facility])- Primary documented in this encounter Advance Directives Documents on File Type Date Recorded Patient Hydraulic Modeling Engineer Expl anation POLST 03/19/2020 4:25 PM [...] patient have Health Care Power of Tie Presser? No Healthcare Agents on File Name Relationship Healthcare Agent Relationship Communication Galdino Camp Other - (no specific identity) Health Care Power of Tie Presser Princess Allen Other - (no specific identity) Health Care Power of Tie Presser Care Teams Over Hauler Helper Relationship Specialty Start Date End Date Galdino Andujar, DO [address] [place] [address] PCP - General Internal Medicine 01/07/22 documented as of this encounter
--- OUTSIDE RECORDS SUMMARY | 2023-06-01 04:26 | External Medical Summary ---
Author Name Unknown Address Unknown Organization : Laboratory Report Ordering Provider Test Date Status JAG SHULTZ 08/06/2022 15:35:00 Final Observation Date Value Abnormality Reference (Units ) Status Color of Urine by Auto 08/06/2022 15:35:00 Other Abnormal Light Yellow, Yellow Final Clarity, Urine 08/06/2022 15:35:00 Other Abnormal Clear Final Glucose [Mass/volume] in Urine by Automated test strip 08/06/2022 15:35:00 Negative Negative (mg/dL) Final Bilirubin.total [Presence] in Urine by Automated test strip 08/06/2022 15:35:00 Negative Negative Final Ketones [Mass/volume] in Urine by Automated test strip 08/06/2022 15:35:00 Negative Negative (mg/dL) Final Specific gravity, Urine 08/06/2022 15:35:00 1.015 1.003-1.030 Final Hemoglobin [Presence] in Urine by Automated test strip 08/06/2022 15:35:00 Negative Negative Final pH, Urine 08/06/2022 15:35:00 6.5 5.0, 5.5, 6.0, 6.5, 7.0, 7.5 (units) Final Protein [Mass/volume] in Urine by Automated test strip 08/06/2022 15:35:00 Negative Negative (mg/dL) Final Urobilinogen, Urine 08/06/2022 15:35:00 0.2 0.2, 1.0 (mg/dL) Final Nitrite [Presence] in Urine by Automated test strip 08/06/2022 15:35:00 Negative Negative Final Leukocyte esterase [Presence] in Urine by Automated test strip 08/06/2022 15:35:00 Small Abnormal Negative Final Performing Location
--- OUTSIDE RECORDS SUMMARY | 2023-06-01 04:27 | External Medical Summary | Summary of Care ---
Author Name Unknown Organization [place] [address] Care Team Providers Care Mechanic Industrial Truck Name Role Phone Galdino Andujar DO Primary Care Provider [phone] Reason for Visit * Reason Onset Date Comments Medication Management 08/03/2022 Encounter Details Date Type Department Care Team Description 08/03/2022 Telephone [facility] 132 [facility] [place] [address] Brooke Jose, RN [address] [facility] [place] [address] Medication Management Allergies Active Allergy Reactions Severity Noted Date Comments Codeine 07/08/2014 hallucination Pollen 05/18/2019 Heparin 09/04/2009 Heparin Induced Thrombocytopenia Hydrocodone Neuro complications (Please comment) 07/28/2020 Empagliflozin Other (Please comment) Medium 05/17/2018 3 yeast infections in 6 weeks after starting Morphine And Related 09/16/1997 Hallucinations Tetanus Toxoid Other (Please comment) 06/15/2011 Passed out documented as of this encounter (statuses as of 08/03/2022) Medications Medication Sig Dispensed Refills Start Date [...] 90 Cap 3 12/18/2019 Active DIURETIC TITRATION PLANIndications:Casting Room Helper 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 1 Each 0 04/08/2020 Active Blood Glucose Monitoring Suppl (Impression TechnologiesUCH ULTRA 2) w/Device KIT Use to test BG values 1 Kit 0 05/20/2020 Active Acetaminophen 500 MG Oral Tablet (Acetaminophen Extra [...] take unless instructed by provider 0 Active Cholecalciferol 125 MCG (5000 UT) Oral Capsule Take 1,000 Units by mouth daily. 0 Active BD Pen Needle Short U/F 31G X 8 MM (Insulin Pen Needle) use five times daily 500 Each 3 11/04/2021 Active OneLa Cartoonerieuch Ultra Blue In Vitro Strip (Glucose Blood) [...] ([facility]) Inject 40 units with meals + sliding [...] 100 Capsule 3 04/01/2022 Active Dexcom G6 Photographer Scientific Device Use as directed . Supplied by [employer]. [phone] Active Dexcom G6 Sensor Use as directed . Change every 10 days Supplied by [employer]. [phone] Active Dexcom G6 Transmitter Use as directed. Change every 90 days Supplied by [employer]. [phone] Active rOPINIRole HCl 2 MG Oral Tablet (Requip)Indications: Restless legs syndrome TAKE ONE TABLET BY MOUTH AT BEDTIME 100 Tablet 3 04/15/2022 Active metFORMIN HCl ER 500 MG Oral Tablet Extended Release 24 Hour (Glucophage XR)Indications:Type 2 diabetes mellitus with hemoglobin A1c goal of less than 8.0% ([facility]) Take by mouth 1 Tablet in the morning. 100 Tablet 1 05/12/2022 Active DULoxetine HCl 60 MG Oral Capsule Delayed Release Particles (Cymbalta)Indication s:Fibromyalgia,Moder ate episode of recurrent major depressive disorder (HCC),Primary osteoarthritis of both knees Take by mouth 1 Capsule in the morning. Along with 30 mg capsule to total 90 mg daily.. 100 Capsule 3 06/08/2022 Active Levothyroxine Sodium 200 MCG Oral Tablet [...] as of this encounter (statuses as of 08/03/2022) Active Problems Problem Noted Date Chronic kidney [...] as of this encounter (statuses as of 08/03/2022) Resolved Problems Problem Noted Date Resolved Date [...] as of this encounter (statuses as of 08/03/2022) Immunizations Name Administration Dates Next Due COVID-19 mRNA, LNP-s, No Pre serve, 2-Dose Series (Pfizer) 01/08/2021,12/18/2020 COVID-19, LNP-s, No Preserve , Navarro-sucrose, Ages 12+ (Pfizer) 2022,10/01/2021 Pneumococcal Conjugate Vacci ne, 20-valent ([id number]) 03/12/2022 Pneumococcal Polysaccharide PPV23 (Pneumovax) 08/22/2009,06/15/2006 Seasonal [...] got money to buy more. Never true 06/18/2022 Within the past 12 months, t he food you bought just didn't last and you didn't have money to get more. Never true 06/18/2022 Sex Assigned at Date Recorded Female 11/07/2019 2:[address] Job Start Date Occupation Industry Not on file Not on file Not on file documented as of this encounter Miscellaneous Notes * Telephone Encounter - rBooke Jose RN - 08/03/2022 1:[address] Andujar and Shira, Pt with frequent uti's Asymptomatic until has fever Seeing you on 08/05/22 for hospital f/u I placed standing order for urine culture under your name Would you consider ordering estrogen vaginal cream? Pt is in agreement to use if ordered Transitioning to pill packs at [facility] - please send all new scripts Needs 2 week refill of clonazepam to get through until has pill packs to [facility]. (pt reports they will only take order for 30 days?) I feel she would benefit from meeting with your improvement analyst for low sodium and diabetic diets (chips and [id number] during visit) I am seeing her again on 08/10/22 for brad, pill box fill and pill pack coordination Please reach out if I can help with anything. Thank you, brooke documented in this encounter Plan of Treatment Upcoming Encounters Date Type Specialty Care Team Description 08/03/2022 Home Visit [facility] Brooke Jose RN 132 [facility] [place] [address] UTI (urinary tract infection)* 08/04/2022 Nurse Only [facility], Nurse Fam Prac [address] [address] 08/04/2022 Office Visit Family Medicine Galdino Andujar, 293 [place] [address] 08/05/2022 Nurse Only [facility], Nurse Annual Wellness Visit [address] [place] [address] 08/10/2022 Telemedicine [facility] Lucia Garcia CRNP 132 [facility] [place] [address] Mira Duong, Community Health Quality Assurance Tech [address] [place] [address] 08/10/2022 Office Visit Nephrology Clover Osman PA-C [address] [place] [address] 08/17/2022 Home Visit [facility] Brooke Jose RN [address] [place] [address] 08/25/2022 Office Visit Pulmonary Nikita Sanchez MD [address] [place] [address] 09/13/2022 Office Visit Family Medicine Galdino Andujar, DO [address] [place] [address] 01/19/2023 PulmDiagnostic Pulmonary Function West, Pft 132 [facility] [place] [address] Scheduled Procedures Name Priority Associated Diagnoses Date/Ti [...] Additional history exists CKD PHOS USE SMARTSET 10506 01/07/2023 04/12/2021, 03/12/2021, 11/17/2020, Additional history exists DIABETES-FOOT EXAM 01/07/2023 01/07/2022, 0 01/14/2021, 11/07/2019, Additional history exists TSH FOR THYROID MEDICATION MONITORING YEARLY 01/07/2023 01/07/2022, 12/25/2020, 05/06/2020, Additional history exists DIABETES-EYE EXAM 05/24/2023 05/24/2022, , 04/07/2020, Additional history exists CKD HGB USE SMARTSET 28756 06/29/202306/29, 06/29/2022, 01/07/2022, Additional history exists Depression Screening, Annual for Pts 12 and Over 07/02/2023 07/02/2022, 06/12/2018 Mammogram 02/12/2024 02/11/2022, 02/2021, 07/10/2019, Additional [...] Documents on File Type Date Recorded Patient Digital Manager Andre echevarria POLST 03/19/2020 4:25 PM POLST Latest Code [...] the patient have Health Care Power of Filament Tester? No Healthcare Agents on File Name Relationship Healthcare Agent Relationship Communication Galdino Camp Other - (no specific identity) Health Care Power of Filament Tester Princess Allen Other - (no specific identity) Health Care Power of Filament Tester Care Teams Mechanic Industrial Truck Relationship Specialty Start Date End Date Galdino Andujar, DO [address] [place] [address] PCP - General Internal Medicine 01/07/22 documented as of this encounter
--- OUTSIDE RECORDS SUMMARY | 2023-06-01 04:27 | External Medical Summary | Summary of Care ---
Author Name Unknown Organization [place] [address] Care Team Providers Care Manager Camp Name Role Phone Galdino Andujar DO Primary Care Provider [phone] Reason for Visit * Reason Comments Medication Management Encounter Details Date Type Department Care Team Description 08/05/2022 Pharmacy Family Practice 65 [facility], [place] [address] [place] [phone] [place], Pharmacist [address] [address] Type 2 diabetes mellitus with hemoglobin A1c goal of less than 8.0% ([facility])* Allergies Active Allergy Reactions Severity Noted [...] 0 0 Active Blood Glucose Monitoring Suppl (SazneoUCH ULTRA 2) w/Device KIT Use to test BG values 1 Kit 0 0 Active Acetaminophen 500 MG Oral Tablet (Acetaminophen [...] 7.0%-8.0% ([facility]) Inject 40 units with meals + [...] 100 Capsule 3 2 Active Dexcom G6 Puppet Master Device Use as directed . Supplied by [employer]. [phone] 0 Active Dexcom G6 Sensor Use as directed . Change every 10 days Supplied by [employer], [employer]. [phone] 0 Active Dexcom G6 Transmitter Use as directed. Change every 90 days Supplied by [employer]. [phone] 0 Active rOPINIRole HCl 2 MG Oral Tablet (Requip)Indications :Restless legs syndrome TAKE ONE TABLET BY MOUTH AT BEDTIME 100 Tablet 3 2 Active metFORMIN HCl ER 500 MG Oral Tablet Extended Release 24 Hour (Glucophage XR)Indications:Type 2 diabetes mellitus with hemoglobin A1c goal of less than 8.0% ([facility]) Take by mouth 1 Tablet in [...] 08/03/2022 Clotrimazole 10 MG Mouth/Throat Valarie (Mycelex Valarei) Take by mouth 10 mg 5 times [...] Requip Fibromyalgia 02/02/2016 Abnormality of gait 02/02/[address] [place] [address] 08/19/2014 History of pulmonary [...] mRNA, LNP-s, No Pre serve, 2-Dose Series ([employer]) 01/08/2021,12/18/2020 COVID-19, LNP-s, No Preserve , Navarro-sucrose, Ages 12+ (Pfizer) 2022,10/01/2021 Pneumococcal Conjugate Vacci ne, 20-valent ([id number]) 03/12/2022 Pneumococcal Polysaccharide PPV23 (Pneumovax) 08/22/2009,06/15/2006 Seasonal [...] this encounter Progress Notes * Pop Greer, [facility] - 08/05/2022 2:06 PM EST Medication Therapy Disease Management Clinic - Medication Reconciliation Stephanie Camp is an 67 year old being seen for medication reconciliation. Prescription insurance information: [employer] Do you have any other prescription coverage: Yes, [place] [employer] Preferred pharmacy: [email or web address] [x] Problem list reviewed [x] [...] 01/07/22 1156 11/17/20 1300 HEMOGLOBIN A1C - [facility] % 7.6* 7.8* 8.3* Recent Labs Units 07/02/22 1511 06/18/22 1521 05/12/22 1504 ESTIMATED GLOMERULAR FILTRATION RATE - [facility] mL/min 38* 43* 45* Serum creatinine: 1.5 [...] visit scheduled in 1 year Pop Greer [facility] Clinical Pharmacist - Messaging Architect Medication Therapy Management Clinic 08/05/2022, 2:06 PM documented in this encounter Plan of Treatment Upcoming Encounters Date Type Specialty Care Team Description 08/06/2022 Office Visit Family Medicine Galdino Andujar, DO 293 [place] [address] 08/10/2022 Telemedicine [facility] Lucia Garcia CRNP [address] [place] [address] Mira Duong, Community Health Fabric And Accessories Estimator [address] [place] [address] 08/10/2022 Office Visit Nephrology Clover Osman PA-C [address] [place] [address] 08/17/2022 Home Visit [facility] Brooke Jose, RN [address] [place] [address] 08/25/2022 Office Visit Pulmonary Nikita Sanchez MD [address] [place] [address] 09/13/2022 Office Visit Family Medicine Galdino Andujar, DO [address] [place] [address] 01/19/2023 PulmDiagnostic Pulmonary Function West, Pft [address] [place] [address] Scheduled Procedures Name Priority Associated Diagnoses Date/Ti [...] Additional history exists CKD PHOS USE SMARTSET 14300 01/07/202312/25, 03/12/2021, 11/17/2020, Additional history exists DIABETES-FOOT EXAM 01/07/2023 01/07/2022, 0 01/14/2021, 11/07/2019, Additional history exists TSH FOR THYROID MEDICATION MONITORING YEARLY 01/07/2023 01/07/2022, 12/25/2020, 05/06/2020, Additional history exists DIABETES-EYE EXAM 05/24/2023 05/24/2022, , 04/07/2020, Additional history exists CKD HGB USE SMARTSET 35380 06/29/202306/29, 06/29/2022, 01/07/2022, Additional history exists Depression [...] less than 8.0% ([facility])- Primary documented in this encounter Advance Directives Documents on File Type Date Recorded Patient Chief Marketing Officer Expl anation POLST 03/19/2020 4:25 PM [...] the patient have Health Care Power of Fire Pot Operator? No Healthcare Agents on File Name Relationship Healthcare Agent Relationship Communication Galdino Camp Other - (no specific identity) Health Care Power of Fire Pot Operator Princess Staplesfany Other - (no specific identity) Health Care Power of Fire Pot Operator Care Teams Manager Camp Relationship Specialty Start Date End Date Galdino Andujar, DO 293 [place] [address] PCP - General Internal Medicine 01/07/22 documented as of this encounter
--- OUTSIDE RECORDS SUMMARY | 2023-06-01 04:27 | External Medical Summary | Summary of Care ---
Author Name Unknown Organization [place] [address] Care Team Providers Care Top Collar Baster Name Role Phone Galdino Andujar DO Primary Care Provider [phone] Reason for Visit * Reason Comments Dosage Adjustment Via Phone (anticoag Cl inic) Medication Management Encounter Details Date Type Department Care Team Description 07/27/2022 Telemedicine Family Practice 65 [facility] [address] [place] [id number] [place], Pharmacist [address] [address] Encounter for long-term (current) use of medications* [...] as of this encounter (statuses as of 07/31/2022) Medications Medication Sig Dispensed Refills Start Date End Date Status docusate sodium (STOOL SOFTENER) 100 MG Capsule Take by mouth 100 mg 2 times a day . 0 Active ONETOUCH DELICA LANCETS 33G MISC Check blood sugars 3-4 times daily 180 Each 5 08/01/2018 Active oxygen GASIndications:ELISSA (obstructive sleep apnea) 2 lpm continuous 0 11/28/2019 Active omeprazole (PRILOSEC) 20 MG CPDR Take 1 Cap by mouth daily. 90 Cap 3 12/18/2019 Active DIURETIC TITRATION PLANIndications:Stripper Printed Circuit Boards 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 1 Each 0 04/08/2020 Active Blood Glucose Monitoring Suppl (NanaliTOUCH ULTRA 2) w/Device KIT Use to test [...] goal of 7.0%-8.0% ([facility]) Inject 40 units with meals [...] 100 Capsule 3 04/01/2022 Active Dexcom G6 Occupational Hygienist Device Use as directed . Supplied by [employer]. [phone] 0 Active Dexcom G6 Sensor Use as directed . Change every 10 days Supplied by [employer]. [phone] 0 Active Dexcom G6 Transmitter Use as directed . Change every 90 days Supplied by [employer]. [phone] Active rOPINIRole HCl 2 MG Oral [...] THE SKIN IN THE EVENING, Reported on 07/26/2022 Clotrimazole 10 MG Mouth/Throat Valarie (Mycelex Valarie) [...] Pain, Severe. 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 Atherosclerosis of [place] coronary arter 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 12/31/2021 [...] Requip Fibromyalgia 02/02/2016 Abnormality of gait 02/02/[address] [place] [address] 08/19/2014 History of pulmonary [...] as of this encounter (statuses as of 07/31/2022) Resolved Problems Problem Noted Date Resolved Date [...] as of this encounter (statuses as of 07/31/2022) Immunizations Name Administration Dates Next Due COVID-19 mRNA, LNP-s, No Pre serve, 2-Dose Series (Pfizer) 01/08/2021,12/18/2020 COVID-19, LNP-s, No Preserve , Navarro-sucrose, Ages 12+ (Pfizer) 2022,10/01/2021 Pneumococcal Conjugate Vacci ne, 20-valent ([id number]) 03/12/2022 Pneumococcal Polysaccharide PPV23 (Pneumovax) 08/22/2009,06/15/2006 Seasonal [...] Tobacco Use Types Packs/Day Years Used Date Former Smoker 1 15 Quit: 08/26 Smokeless Tobacco: Never Used Alcohol Use Standard Drinks/Week Comments Not Currently [...] Progress Notes * Frances Duong, [facility] - 07/31/2022 5:19 PM EDT Received word from [facility] pharmacy that they can do pill packing with patient. Will coordinatewith patient upon discharge from hospital. Frances Duong, Pharm D, BCACP Clinical Pharmacist Medication Therapy [facility] documented in this encounter Plan of Treatment Upcoming Encounters Date Type Specialty Care Team Description 08/02/2022 Office Visit Family Medicine Galdino Andujar, DO [address] [place] [address] 08/04/2022 Office Visit Family Medicine Galdino Andujar, DO [address] [place] [address] 08/05/2022 Nurse Only Ancillary [place], Nurse Annual Wellness Visit [address] [place] [address] 08/10/2022 Telemedicine [facility] Lucia Garcia CRNP [address] [place] [address] Mira Duong, Community Health Driving Teacher [address] [place] [address] 08/25/2022 Office Visit Pulmonary Nikita Sanchez MD [address] [place] [facility] [place] [address] 09/13/2022 Office Visit Family Medicine Galdino Andujar, DO [address] [place] [address] 01/19/2023 PulmDiagnostic Pulmonary Function [place], Pft [address] [facility] [place] [address] Scheduled Procedures Name Priority Associated Diagnoses Date/Ti [...] Additional history exists CKD PHOS USE SMARTSET 40774 01/07/202312/25, 03/12/2021, 11/17/2020, Additional history exists DIABETES-FOOT EXAM 01/07/2023 01/07/2022, 0 01/14/2021, 11/07/2019, Additional history exists TSH FOR THYROID MEDICATION MONITORING YEARLY 01/07/2023 01/07/2022, 12/25/2020, 05/06/2020, Additional history exists DIABETES-EYE EXAM 05/24/2023 05/24/2022, , 04/07/2020, Additional history exists CKD HGB USE SMARTSET 43401 06/29/202306/29, 06/29/2022, 01/07/2022, Additional history exists Depression [...] this topic documented as of this encounter Implants Not on filedocumented as of this encounter Visit Diagnoses Diagnosis Encounter for long-term (current) use of medications- Primary Encounter for long-term (current) use of other medications documented in this encounter Advance Directives Documents on File Type Date Recorded Patient Floorworker Distributor Expl anation Advanced Directive Advanced Directive Advanced Directive Advanced Directive Advanced Directive Advanced Directive Advanced Directive Advanced Directive Advanced Directive Advanced Directive Advanced Directive Advanced Directive Advanced Directive Advanced Directive Advanced Directive Advanced Directive Advanced Directive Advanced Directive Advanced Directive Advanced Directive Advanced Directive Advanced Directive Advanced Directive Advanced Directive Advanced Directive Advanced Directive Advanced Directive Advanced Directive Advanced Directive Advanced Directive Advanced Directive Advanced Directive Advanced Directive Advanced Directive Advanced Directive Advanced Directive Advanced Directive Advanced Directive Advanced Directive Advanced Directive Advanced Directive Advanced Directive Advanced Directive Advanced Directive Advanced Directive Advanced Directive Advanced Directive Advanced Directive Advanced Directive Advanced Directive Advanced Directive Advanced Directive Advanced Directive Advanced Directive Advanced Directive Advanced Directive Advanced Directive Advanced Directive Advanced Directive Advanced Directive Advanced Directive Advanced Directive Advanced Directive Advanced Directive Advanced Directive Advanced Directive Advanced Directive Advanced Directive Advanced Directive Advanced Directive Advanced Directive Advanced Directive Advanced Directive Advanced Directive Advanced Directive Advanced Directive Advanced Directive Advanced Directive Advanced Directive Advanced Directive Advanced Directive Advanced Directive Advanced Directive Advanced Directive Advanced Directive Advanced Directive Advanced Directive Advanced Directive Advanced Directive Advanced Directive Advanced Directive Advanced Directive Advanced Directive Advanced Directive Advanced Directive Advanced Directive Advanced Directive Advanced Directive Advanced Directive Advanced Directive Advanced Directive Advanced Directive Advanced Directive Advanced Directive Advanced Directive Advanced Directive Advanced Directive Advanced Directive Advanced Directive Advanced Directive Advanced Directive Advanced Directive Advanced Directive Advanced Directive Advanced Directive Advanced Directive Advanced Directive Advanced Directive Advanced Directive Advanced Directive Advanced Directive Advanced Directive Advanced Directive Advanced Directive Advanced Directive Advanced Directive Advanced Directive Advanced Directive Advanced Directive Advanced Directive Advanced Directive Advanced Directive Advanced Directive Advanced Directive Advanced Directive Advanced Directive Advanced Directive Advanced Directive Advanced Directive Advanced Directive Advanced Directive Advanced Directive Advanced Directive Advanced Directive Advanced Directive Advanced Directive Advanced Directive Advanced Directive Advanced Directive Advanced Directive Advanced Directive Advanced Directive Advanced Directive Advanced Directive Advanced Directive Advanced Directive Advanced Directive Advanced Directive Advanced Directive Advanced Directive Advanced Directive Advanced Directive Advanced Directive Advanced Directive Advanced Directive Advanced Directive Advanced Directive Advanced Directive Advanced Directive Advanced Directive Advanced Directive Advanced Directive Advanced Directive Advanced Directive Advanced Directive Advanced Directive Advanced Directive Advanced Directive Advanced Directive Advanced Directive Advanced Directive Advanced Directive Advanced Directive Advanced Directive Advanced Directive Advanced Directive Advanced Directive Advanced Directive Advanced Directive Advanced Directive Advanced Directive Advanced Directive Advanced Directive Advanced Directive Advanced Directive Advanced Directive Advanced Directive Advanced Directive Advanced Directive Advanced Directive Advanced Directive Advanced Directive Advanced Directive Advanced Directive Advanced Directive Advanced Directive Advanced Directive Advanced Directive Advanced Directive Advanced Directive Advanced Directive Advanced Directive Advanced Directive Advanced Directive Advanced Directive Advanced Directive Advanced Directive Advanced Directive Advanced Directive Advanced Directive Advanced Directive Advanced Directive Advanced Directive Advanced Directive Advanced Directive Advanced Directive Advanced Directive Advanced Directive Advanced Directive Advanced Directive Advanced Directive Advanced Directive Advanced Directive Advanced Directive Advanced Directive Advanced Directive Advanced Directive Advanced Directive Advanced Directive Advanced Directive Advanced Directive Advanced Directive Advanced Directive Advanced Directive Advanced Directive Advanced Directive Advanced Directive Advanced Directive Advanced Directive Advanced Directive Advanced Directive Advanced Directive Advanced Directive Advanced Directive Advanced Directive Advanced Directive Advanced Directive Advanced Directive Advanced Directive Advanced Directive Advanced Directive Advanced Directive Advanced Directive Advanced Directive Advanced Directive Advanced Directive Advanced Directive Advanced Directive Advanced Directive Advanced Directive Advanced Directive Advanced Directive POLST 03/19/2020 4:25 PM POLST Advanced Directive 06/11/2011 12:00 AM Advanced Directive 05/28/2011 12:00 AM Advanced Directive 08/22/2009 12:00 AM Latest Code Status on File Code Status Date Activated Date Inactivated Comments Full Code 06/15/2011 12:22 PM 06/17/2011 6:44 PM This order reflects the patients wishes and were consensually agreed upon. Full Code 09/12/2009 1:47 PM 06/03/2011 7:31 AM This order reflects the patients wishes and were consensually agreed upon. Full Code 09/06/2009 4:03 PM 09/12/2009 1:47 PM Thi s order reflects the patients wishes and were consensually agreed upon. Full Code 08/21/2009 3:22 PM 09/06/2009 4:03 PM Thi s order reflects the patients wishes and were consensually agreed upon. Discussion of Advance Directives occurred with: Patient Does the patient have a Living Will? No Does the patient have Health Care Power of Attor shakir? No Healthcare Agents on File Name Relationship Healthcare Agent Relationship Communication Galdino Camp Other Health Care Hayden r of Bus Aide Princessambar Allen Other Health Care Pow er of Bus Aide Care Teams Top Collar Baster Relationship Specialty Start Date End Date Galdino Andujar, DO [address] [place] [address] PCP - General Internal Medicine 01/07/22 documented as of this encounter
--- OUTSIDE RECORDS SUMMARY | 2023-06-01 04:27 | External Medical Summary | Summary of Care ---
Author Name Unknown Organization [place] [address] Care Team Providers Care Medication Assistant Name Role Phone Galdino Andujar DO Primary Care Provider [phone] Reason for Visit * Reason Onset Date Comments Information 08/02/2022 Encounter Details Date Type Department Care Team Description 08/02/2022 Telephone [facility], [place] [address] [place] [id number] Services, Scheduling [address] [place] [address] Information (///) Allergies Active Allergy Reactions Severity Noted Date Comments Codeine 07/08/2014 hallucination Pollen 05/18/2019 Heparin 09/04/2009 Heparin Induced Thrombocytopenia Hydrocodone Neuro complications (Please comment) 07/28/2020 Empagliflozin Other (Please comment) Medium 05/17/2018 3 yeast infections in 6 weeks after starting Morphine And Related 09/16/1997 Hallucinations Tetanus Toxoid Other (Please comment) 06/15/2011 Passed out documented as of this encounter (statuses as of 08/02/2022) Medications Medication Sig Dispensed Refills Start Date [...] 90 Cap 3 12/18/2019 Active DIURETIC TITRATION PLANIndications:Bag Inspector zahra diastolic congestive heart failure (HCC) [...] 100 Capsule 3 04/01/2022 Active Dexcom G6 Fire Safety Director Device Use as directed . Supplied by [employer]. [phone] 0 Active Dexcom G6 Sensor Use as directed . Change every 10 days Supplied by [employer]. [phone] Active Dexcom G6 Transmitter Use as directed . Change every 90 days Supplied by [employer]. 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 Atherosclerosis of [place] coronary arter 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 12/31/2021 [...] as of this encounter (statuses as of 08/02/2022) Resolved Problems Problem Noted Date Resolved Date [...] as of this encounter (statuses as of 08/02/2022) Immunizations Name Administration Dates Next Due COVID-19 mRNA, LNP-s, No Pre serve, 2-Dose Series (Enablon) 01/08/2021,12/18/2020 COVID-19, LNP-s, No Preserve , Navarro-sucrose, Ages 12+ (Pfizer) 2022,10/01/2021 Pneumococcal Conjugate Vacci ne, 20-valent ([id number]) 03/12/2022 Pneumococcal Polysaccharide PPV23 (Pneumovax) 08/22/2009,06/15/2006 Seasonal [...] * Telephone Encounter - ELISSA Chaidez - 08/02/2022 8:29 AM EST Incoming call to verify her appt for today and I reviewed and gave her the info documented in this encounter Plan of Treatment Upcoming Encounters Date Type Specialty Care Team Description 08/03/2022 Home Visit [facility] Brooke Jose, RN [address] [place] [address] 08/04/2022 Nurse Only [facility], Nurse Fam Prac [address] [address] 08/04/2022 Office Visit [facility] Galdino Andujar, DO [address] [place] [address] 08/05/2022 Nurse Only [facility], Nurse Annual Wellness Visit [address] [address] 08/10/2022 Telemedicine [facility] Lucia Garcia CRNP [address] [facility] [place] [address] Mira Duong, Community Health Automated Equipment Engineer Technician [address] [place] [address] 08/25/2022 Office Visit [facility] [address] [facility] [address] 09/13/2022 Office Visit Family Medicine Galdino Andujar, DO [address] [facility], [place] [address] 01/19/2023 PulmDiagnostic [facility] Function [place], Pft [address] [facility] [place] [address] Scheduled Procedures Name Priority Associated Diagnoses Date/Ti [...] Additional history exists CKD PHOS USE SMARTSET 35362 01/07/2023 04/12/2021, 03/12/2021, 11/17/2020, Additional history exists DIABETES-FOOT EXAM 01/07/2023 01/07/2022, 0 01/14/2021, 11/07/2019, Additional history exists TSH FOR THYROID MEDICATION MONITORING YEARLY 01/07/2023 01/07/2022, 12/25/2020, 05/06/2020, Additional history exists DIABETES-EYE EXAM 05/24/2023 05/24/2022, , 04/07/2020, Additional history exists CKD HGB USE SMARTSET 25572 06/29/202306/29, 06/29/2022, 01/07/2022, Additional history exists Depression [...] Documents on File Type Date Recorded Patient Bacteriologist Food Expl anation POLST 03/19/2020 4:25 PM POLST [...] the patient have Health Care Power of Population Health Manager? No Healthcare Agents on File Name Relationship Healthcare Agent Relationship Communication Galdino Camp Other - (no specific identity) Health Care Power of Population Health Manager Princess Allen Other - (no specific identity) Health Care Power of Population Health Manager Care Teams Medication Assistant Relationship Specialty Start Date End Date Galdino Andujar, DO [address] [place] [address] PCP - General Internal Medicine 01/07/22 documented as of this encounter
--- OUTSIDE RECORDS SUMMARY | 2023-06-01 04:27 | External Medical Summary | Summary of Care ---
Author Name Unknown Organization [place] [address] Care Team Providers Care Marketing Area Manager Name Role Phone Galdino Andujar DO Primary Care Provider [phone] Reason for Visit * Reason Onset Date Comments Appointment 08/04/2022 Encounter Details Date Type Department Care Team Description 08/04/2022 Telephone Family Practice 65 [facility] [place] [address] [place] [id number] Galdino Andujar DO [address] [place] [address] Appointment Allergies Active Allergy Reactions Severity Noted Date Comments Codeine 07/08/2014 hallucination Pollen 05/18/2019 Heparin 09/04/2009 Heparin Induced Thrombocytopenia Hydrocodone Neuro complications (Please comment) 07/28/2020 Empagliflozin Other (Please comment) Medium 05/17/2018 3 yeast infections in 6 weeks after starting Morphine And Related 09/16/1997 Hallucinations Tetanus Toxoid Other (Please comment) 06/15/2011 Passed out documented as of this encounter (statuses as of 08/04/2022) Medications Medication Sig Dispensed Refills Start Date [...] 90 Cap 3 12/18/2019 Active DIURETIC TITRATION PLANIndications: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 1 Each 0 04/08/2020 Active Blood Glucose Monitoring Suppl ([employer] FranceTOUCH ULTRA 2) w/Device KIT Use to test [...] ([facility]) Inject 40 units with meals + sliding [...] 100 Capsule 3 04/01/2022 Active Dexcom G6 Beef Boner Device Use as directed . Supplied by [employer]. [phone] 0 Active Dexcom G6 Sensor Use as directed . Change every 10 days Supplied by [employer]. [phone] 0 Active Dexcom G6 Transmitter Use as directed. Change every 90 days Supplied by [employer]. 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/2021 Atherosclerosis of [place] coronary arter 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 12/31/2021 [...] Requip Fibromyalgia 02/02/2016 Abnormality of gait 02/02/[address] 08/19/2014 History of pulmonary [...] as of this encounter (statuses as of 08/04/2022) Resolved Problems Problem Noted Date Resolved Date [...] as of this encounter (statuses as of 08/04/2022) Immunizations Name Administration Dates Next Due COVID-19 mRNA, LNP-s, No Pre serve, 2-Dose Series (Pfizer) 01/08/2021,12/18/2020 COVID-19, LNP-s, No Preserve , Navarro-sucrose, Ages 12+ (Pfizer) 2022,10/01/2021 Pneumococcal Conjugate Vacci ne, 20-valent ([id number]) 03/12/2022 Pneumococcal Polysaccharide PPV23 (Pneumovax) 08/22/2009,06/15/2006 Seasonal [...] - Shira De La Rosa RN - 08/04/2022 3:16 PM EST Call to pt to confirm that she is coming tomorrow for her Annual Wellness Visit- pt states that she is. Told her the pharmacist would like to meet with her prior to the appt to go over all of her meds-especially since she was recently discharged from the hospital. Scheduled pt with pharmacist at 2:30 PM 08/05/22 and then her AWV at 3:00 PM. Told pt to bring all of her medications with her to the appt-pt verbalizes understanding. documented in this encounter Plan of Treatment Upcoming Encounters Date Type Specialty Care Team Description 08/05/2022 Pharmacy [facility], Pharmacist [address] [address] 08/05/2022 Nurse Only [facility], Nurse Annual Wellness Visit [address] [address] 08/06/2022 Office Visit Family Medicine Galdino Andujar, DO [address] [place] [address] 08/10/2022 Telemedicine [facility] Lucia Garcia CRNP [address] [place] [address] Mira Duong, Community Health Dispensing Optician Apprentice [address] [place] [address] 08/10/2022 Office Visit Nephrology Clover Osman PA-C [address] [place] [address] 08/17/2022 Home Visit [facility] Brooke Jose RN [address] [facility] [place] [address] 08/25/2022 Office Visit Pulmonary Nikita Sanchez MD [address] [place], [place] [address] 09/13/2022 Office Visit Family Medicine Galdino Andujar, DO [address] [place] [address] 01/19/2023 PulmDiagnostic Pulmonary Function West, Pft [address] [facility] [place] [address] Scheduled Procedures Name Priority Associated Diagnoses Date/Ti [...] Additional history exists CKD PHOS USE SMARTSET 14737 01/07/202312/25, 03/12/2021, 11/17/2020, Additional history exists DIABETES-FOOT EXAM 01/07/2023 01/07/2022, 0 01/14/2021, 11/07/2019, Additional history exists TSH FOR THYROID MEDICATION MONITORING YEARLY 01/07/2023 01/07/2022, 12/25/2020, 05/06/2020, Additional history exists DIABETES-EYE EXAM 05/24/2023 05/24/2022, , 04/07/2020, Additional history exists CKD HGB USE SMARTSET 97970 06/29/202306/29, 06/29/2022, 01/07/2022, Additional history exists Depression Screening, Annual for Pts 12 and Over 07/02/2023 07/02/2022, 06/12/2018 Mammogram 02/12/2024 02/11/2022, /0 02/2021, 07/10/2019, Additional history exists Colonoscopy: Ages [...] Documents on File Type Date Recorded Patient Detailer Pharmaceuticals Expl anation POLST 03/19/2020 4:25 PM POLST [...] the patient have Health Care Power of Dip Dyer? No Healthcare Agents on File Name Relationship Healthcare Agent Relationship Communication Galdino Camp Other - (no specific identity) Health Care Power of Dip Dyer Princess Other - (no specific identity) Health Care Power of Dip Dyer Care Teams Marketing Area Manager Relationship Specialty Start Date End Date Galdino Andujar, DO [address] [place] [address] PCP - General Internal Medicine 01/07/22 documented as of this encounter
--- OUTSIDE RECORDS SUMMARY | 2023-06-01 04:27 | External Medical Summary | Summary of Care ---
Author Name Unknown Organization [place] [address] Care Team Providers Care Fur Stretcher Name Role Phone Galdino Andujar DO Primary Care Provider [phone] Reason for Visit * Reason Comments [facility]: Maintenance Naren 2 Encounter Details Date Type Department Care Team Description 08/03/2022 Home Visit [facility], [facility] [address] [facility] [place] [address] Brooke Jose, RN 132 [place] [address] UTI (urinary tract infection)* Allergies Active Allergy Reactions Severity Noted Date [...] 90 Cap 3 12/18/2019 Active DIURETIC TITRATION PLANIndications:Fabricator Artificial Breast 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 1 Each 0 04/08/2020 Active Blood Glucose Monitoring Suppl (NexeonTOUCH ULTRA 2) w/Device KIT Use to test [...] 7.0%-8.0% ([facility]) Inject 40 units with meals [...] 100 Capsule 3 04/01/2022 Active Dexcom G6 Paint Roller Covers Supervisor Device Use as directed . Supplied by [employer], [employer]. [phone] Active Dexcom G6 Sensor Use as directed . Change every 10 days Supplied by [employer]. [phone] Active Dexcom G6 Transmitter Use as directed. Change every 90 days Supplied by [employer]. [phone] Active rOPINIRole HCl 2 MG Oral Tablet (Requip)Indications: Restless legs syndrome TAKE ONE TABLET BY MOUTH AT BEDTIME 100 Tablet 3 04/15/2022 Active metFORMIN HCl ER 500 MG Oral Tablet Extended Release 24 Hour (Glucophage XR)Indications:Type 2 diabetes mellitus with hemoglobin A1c goal of less than 8.0% ([facility]) Take by mouth 1 Tablet [...] less than 140/90 02/22/2014 Venous insufficiency 02/07/2013 ELISAS (obstructive sleep apnea) 09/16/2011 Overview: CPAP 11 [...] mRNA, LNP-s, No Pre serve, 2-Dose Series (Scripped) 01/08/2021,12/18/2020 COVID-19, LNP-s, No Preserve , Navarro-sucrose, Ages 12+ (Pfizer) 2022,10/01/2021 Pneumococcal Conjugate Vacci ne, 20-valent ([id number]) 03/12/2022 Pneumococcal Polysaccharide PPV23 (Pneumovax) 08/22/2009,06/15/2006 Seasonal [...] Sign Reading Time Taken Comments Blood Pressure 132/58 08/03/2022 12:47 PM EST Pulse 94 08/03/2022 12:47 PM EST Temperature 36.5 C (97.7 F) 08/03/2022 12:[address] Respiratory Rate - - Oxygen Saturation 97% 08/03/2022 12:47 PM EST 3lnc Inhaled Oxygen Concentration - - Weight 142 kg (313 lb) 08/03/2022 12:47 PM EST Height - - Body Mass Index 52.09 07/26/2022 3:58 PM EDT documented in this encounter Progress Notes * Brooke Jose RN - 08/03/2022 12:11 PM EST [facility] Mva Reactor Operator Monthly Visit Date: 08/03/2022 Time: 12:11 PM Name: Stephanie Camp : 1955 Situation: NAREN 2 Background: [facility] Enrollment Date: 06/14/22 - Focused Care (3-9 months) PMHx: Frank filter, CHF, CHF, DVT, venous insufficiency, vasculitis, CAD, carotid stenosis, chronic hypoxemic respiratory failure, ELISSA, o2 dependent, GERD, DM, Hx PE, spinal stenosis Utilization: 07/16 - - [facility] Admission - falls, acute on chronic CHF, acute on chronic respiratory failure,cellulitis R hand d/t cat bite 07/29 - 03/17 - [facility] - acute on chronic resp fx with hypoxia, UTI, chronic diastolic HF, d/c home on doxycycline and cefdinir 08/04 and 08/25/22 - scheduled for cataract surgeries Assessment: CHRONIC RESPIRATORY FAILURE: Breathing at baseline today Continues to wear 3lnc at all times Wearing cpap qhs with 3l o2 UTI: Continues to take doxy (6 doses left) and cefdinir (4 doses left) Denies any s/s uti States ''never have symptoms until I get a fever'' Placed standing order for urine culture Will send TE to Dr. Andujar (seeing on 08/05/22) - asked to consider estrogen vaginal cream for ut prevention CHF: 313lbs today (New dry wt) Trace b/l le edema Faint crackles RLL Unable to locate flutter valve (just moved) - will continue to look for it DM: Not currently using Dexcom - lost in move but is trying to locate bsg during visit 181 Denies symptomatic highs/lows since hospital d/c Follows With MTM Physical Exam: BP 132/58 | Pulse 94 | Temp 36.5 C (97.7 F) | Wt (!) 142 kg (313 lb) | LMP 03/11/2003 | SpO2 97% Comment: 3lnc | BMI 52.09 kg/m | BSA 2.55 m Pain 3 Physical Exam Constitutional: Appearance: [...] ordered: Yes Patient Well Being: Continues to work with cg to get unpacked Encouraged to keep paths clean [facility]-10 Completed this Visit: Yes. [facility]-10: Reason Completed: Status post ED visit/hospital admission [facility]-10 Interventions: Fall education provided, reviewed/provided Fall brochure Advanced Care Planning: No documentation, deferred d/t other issues. Reinforcement/Education: Educated on home safety: Create a [...] - working towards pill packs with Romelia Apothecarkassi Frequent UTI's - typically asymptomatic until has fever, has standing order for urine culture Ambulate with roller walker at ALL times o2 2lnc at rest, 4Lnc with activity - [facility] [phone] WEAR O2 AT ALL TIMES OR BECOMES [...] need Dexascan in future Home Interventions Provided: Reinforced current Plan of Care, including self-management and medication regimen Updated Exacerbation Plan T/E sent to PCP Patient Needs to Remember: Call [facility] with red flags Referrals Needed: none Follow Up: Is there cellular connectivity/connectivity in the home? Yes Does the patient have internet in the home? Yes Patient encouraged to call the intake phone number for all urgent but not emergent issues. Is the patient new to [facility] within the last 30 days? No, Assess appropriateness for upcoming telehealth visits. Cancel telehealth visits & schedule home visit with care production team member(s)as indicated. Provider is in agreement with Plan of Care: Yes Scheduled to follow up with patient in one week. Brooke Jose RN 08/03/2022 12:11 PM documented in this encounter Plan of Treatment Upcoming Encounters Date Type Specialty Care Team Description 08/04/2022 Nurse Only [facility], Nurse Fam Prac [address] [facility] [address] [place] [address] 08/04/2022 Office Visit Family Medicine Galdino Andujar DO [address] [facility], [place] [address] 08/05/2022 Nurse Only [facility], Nurse Annual Wellness Visit 65 [facility] [address] [facility], [place] [address] 08/10/2022 Telemedicine [facility] Lucia Garcia CRNP [address] [place] [address] Mira Duong, Community Health Integration Software Engineer [address] [place] [address] 08/10/2022 Office Visit Nephrology Clover Osman PA-C 200 [facility] [place] [address] 08/17/2022 Home Visit [facility] Brooke Jose RN [address] [place] [address] 08/25/2022 Office Visit Pulmonary Nikita Sanchez MD [address] [place] [address] 09/13/2022 Office Visit Family Medicine Galdino Andujar, DO [address] [place] [address] 01/19/2023 PulmDiagnostic Pulmonary Function West, Pft [address] [place] [address] Scheduled Orders Name Type Priority Associated Diagnoses Orde r Schedule CULTURE, URINE, QUANTITATIVE Lab Routine UTI (urinary tract infection) 100 Occurrences starting 08/03/2022 until 08/03/2023 Scheduled Procedures Name Priority Associated Diagnoses Date/Ti [...] Additional history exists CKD PHOS USE SMARTSET 19655 01/07/202312/25, 03/12/2021, 11/17/2020, Additional history exists DIABETES-FOOT EXAM 01/07/2023 01/07/2022, 0 01/14/2021, 11/07/2019, Additional history exists TSH FOR THYROID MEDICATION MONITORING YEARLY 01/07/2023 01/07/2022, 12/25/2020, 05/06/2020, Additional history exists DIABETES-EYE EXAM 05/24/2023 05/24/2022, , 04/07/2020, Additional history exists CKD HGB USE SMARTSET 70251 06/29/202306/29, 06/29/2022, 01/07/2022, Additional history exists Depression [...] as of this encounter Visit Diagnoses Diagnosis UTI (urinary tract infection)- Primary Urinary tract infection, site not specified documented in this encounter Advance Directives Documents on File Type Date Recorded Patient Detective Bureau Chief Expl anation POLST 03/19/2020 4:25 PM [...] the patient have Health Care Power of Winery Worker? No Healthcare Agents on File Name Relationship Healthcare Agent Relationship Communication Galdino Camp Other - (no specific identity) Health Care Power of Winery Worker Princess Allen Other - (no specific identity) Health Care Power of Winery Worker Care Teams Fur Stretcher Relationship Specialty Start Date End Date Galdino Andujar, DO [address] [place] [address] PCP - General Internal Medicine 01/07/22 documented as of this encounter"
--- OUTSIDE RECORDS SUMMARY | 2023-06-01 04:27 | External Medical Summary | Summary of Care ---
Author Name Unknown Organization [place] [address] Care Team Providers Care Commercial Drafter Name Role Phone Galdino Andujar DO Primary Care Provider [phone] Reason for Visit * Reason Onset Date Comments Medication Management 08/03/2022 Encounter Details Date Type Department Care Team Description 08/03/2022 Telephone [facility], [facility] 132 [facility] [place] [address] Brooke Jose, RN [address] [facility] [place] [address] Medication Management Allergies Active Allergy Reactions Severity [...] 90 Cap 3 12/18/2019 Active DIURETIC TITRATION PLANIndications:Vice President For Instruction 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 1 Each 0 04/08/2020 Active Blood Glucose Monitoring Suppl (Think FinanceUCH ULTRA 2) w/Device KIT Use to test [...] times daily 500 Each 3 11/04/2021 Active OneNight Node Softwareuch Ultra Blue In Vitro Strip (Glucose Blood) [...] 7.0%-8.0% ([facility]) Inject 40 units with meals [...] 100 Capsule 3 04/01/2022 Active Dexcom G6 Residence Manager Device Use as directed . Supplied by [employer]. [phone] Active Dexcom G6 Sensor Use as directed . Change every 10 days Supplied by [employer]. [phone] Active Dexcom G6 Transmitter Use as directed. Change every 90 days Supplied by [employer]. 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 Andujar and Shira, Pt with frequent uti's Asymptomatic until has fever Seeing you on 08/05/22 for hospital f/u I placed standing order for urine culture under your name Would you consider ordering estrogen vaginal cream? Pt is in agreement to use if ordered Transitioning to pill packs at [facility] - please send all new scripts Needs 2 week refill of clonazepam to get through until has pill packs to [place] [facility]. (pt reports they will only take order for 30 days?) I feel she would benefit from meeting with your turf farm worker for low sodium and diabetic diets (chips and [id number] during visit) I am seeing her again on 08/10/22 for brad, pill box fill and pill pack coordination Please reach out if I can help with anything. Thank you, brooke documented in this encounter Plan of Treatment Upcoming Encounters Date Type Specialty Care Team Description 08/03/2022 Home Visit [facility] Brooke Jose RN 132 [facility] [place] [address] UTI (urinary tract infection)* 08/04/2022 Nurse Only [facility], Nurse Fam Prac [address] [address] 08/04/2022 Office Visit Family Medicine Galdino Andujar, 293 [place] [address] 08/05/2022 Nurse Only [facility], Nurse Annual Wellness Visit [address] [place] [address] 08/10/2022 Telemedicine [facility] Lucia Garcia CRNP 132 [place] [address] Mira Duong, Community Health Trading Assistant [address] [place] [address] 08/10/2022 Office Visit Nephrology Clover Osman PA-C [address] [place] [address] 08/17/2022 Home Visit [facility] Brooke Jose RN [address] [place] [address] 08/25/2022 Office Visit Pulmonary Nikita Sanchez MD [address] [place] [address] 09/13/2022 Office Visit Family Medicine Galdino Andujar, DO [address] [place] [address] 01/19/2023 PulmDiagnostic Pulmonary Function West, Pft 132 [place] [address] Scheduled Procedures Name Priority Associated Diagnoses Date/Ti [...] Additional history exists CKD PHOS USE SMARTSET 49802 01/07/2023 04/12/2021, 03/12/2021, 11/17/2020, Additional history exists DIABETES-FOOT EXAM 01/07/2023 01/07/2022, 0 01/14/2021, 11/07/2019, Additional history exists TSH FOR THYROID MEDICATION MONITORING YEARLY 01/07/2023 01/07/2022, 12/25/2020, 05/06/2020, Additional history exists DIABETES-EYE EXAM 05/24/2023 05/24/2022, , 04/07/2020, Additional history exists CKD HGB USE SMARTSET 52846 06/29/202306/29, 06/29/2022, 01/07/2022, Additional history exists Depression [...] Documents on File Type Date Recorded Patient Switchboard Troubleshooter Andre echevarria POLST 03/19/2020 4:25 PM POLST [...] the patient have Health Care Power of Soft Sugar Supervisor? No Healthcare Agents on File Name Relationship Healthcare Agent Relationship Communication Galdino Camp Other - (no specific identity) Health Care Power of Soft Sugar Supervisor Princess Allen Other - (no specific identity) Health Care Power of Soft Sugar Supervisor Care Teams Commercial Drafter Relationship Specialty Start Date End Date Galdino Andujar, DO [address] [place] [address] PCP - General Internal Medicine 01/07/22 documented as of this encounter
--- OUTSIDE RECORDS SUMMARY | 2023-06-01 04:27 | External Medical Summary | Summary of Care ---
Author Name Unknown Organization [place] [address] Care Team Providers Care Therapy Director Name Role Phone Galdino Andujar DO Primary Care Provider [phone] Reason for Visit * Reason Onset Date Comments Information 08/04/2022 Encounter Details Date Type Department Care Team Description 08/04/2022 Telephone Family Practice 65 [facility] [place] [address] [place] [phone] Galdino Andujar DO [address] [place] [address] Information (//) Allergies Active Allergy Reactions Severity Noted [...] 0 0 Active Blood Glucose Monitoring Suppl (Delve NetworksUCH ULTRA 2) w/Device KIT Use to test [...] 100 Capsule 3 2 Active Dexcom G6 Flight Attendant Ramp Device Use as directed . Supplied by [employer], [employer]. [phone] 0 Active Dexcom G6 Sensor Use as directed . Change every 10 days Supplied by [employer], [employer]. [phone] 0 Active Dexcom G6 Transmitter Use as directed. Change every 90 days Supplied by [employer], [employer]. 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 Called patient, she was not sure appointment was today. Please schedule patient for Monday 08/06 at 3:[address] Andujar and then schedule at 2:30 with nurse for medication review. Thank you documented in this encounter Plan of Treatment Upcoming Encounters Date Type Specialty Care Team Description 08/06/2022 Office Visit Family Medicine Galdino Andujar, DO 293 [facility], [place] [address] 08/10/2022 [facility]medicine [facility] [address] Mira Duong, Community Health Stamps Or Coins Salesperson [address] [place] [address] 08/10/2022 Office Visit Nephrology Clover Osman PA-C 200 [facility], [place] [address] 08/17/2022 Home Visit [facility] Brooke Jose RN 132 [place] [address] 08/25/2022 Office Visit Pulmonary Nikita Sanchez MD [address] [place] [address] 09/13/2022 Office Visit Family Medicine Galdino Andujar, DO 293 [place] [address] 01/19/2023 PulmDiagnostic Pulmonary Function West, Pft [address] [place] [address] Scheduled Procedures Name Priority Associated Diagnoses Date/Ti [...] Additional history exists CKD PHOS USE SMARTSET 85961 01/07/202312/25, 03/12/2021, 11/17/2020, Additional history exists DIABETES-FOOT EXAM 01/07/2023 01/07/2022, 0 01/14/2021, 11/07/2019, Additional history exists TSH FOR THYROID MEDICATION MONITORING YEARLY 01/07/2023 01/07/2022, 12/25/2020, 05/06/2020, Additional history exists DIABETES-EYE EXAM 05/24/2023 05/24/2022, , 04/07/2020, Additional history exists CKD HGB USE SMARTSET 79497 06/29/202306/29, 06/29/2022, 01/07/2022, Additional history exists Depression [...] on File Type Date Recorded Patient Senior Environmental Engineer Expl anation POLST 03/19/2020 4:25 PM [...] the patient have Health Care Power of Netbackup Administrator? No Healthcare Agents on File Name Relationship Healthcare Agent Relationship Communication Galdino Camp Other - (no specific identity) Health Care Power of Netbackup Administrator Princess Allen Other - (no specific identity) Health Care Power of Netbackup Administrator Care Teams Therapy Director Relationship Specialty Start Date End Date Galdino Andujar, DO [address] [place] [address] PCP - General Internal Medicine 01/07/22 documented as of this encounter
--- OUTSIDE RECORDS SUMMARY | 2023-06-01 04:27 | External Medical Summary | Summary of Care ---
Author Name Unknown Organization [place] [address] Care Team Providers Care Licensed Loan Officer Assistant Name Role Phone Galdino Andujar DO Primary Care Provider [phone] Encounter Details Date Type Department Care Team Description 07/28/2022 Home Visit Care Coordination [address] [place] [address] Mira Duong, Community Health Account Director [address], [place] [id number] Allergies Active Allergy Reactions Severity Noted Date Comments Codeine 07/08/2014 hallucination Pollen 05/18/2019 Heparin 09/04/2009 Heparin Induced Thrombocytopenia Hydrocodone Neuro complications (Please comment) 07/28/2020 Empagliflozin Other (Please comment) Medium 05/17/2018 3 yeast infections in 6 weeks after starting Morphine And Related 09/16/1997 Hallucinations Tetanus Toxoid Other (Please comment) 06/15/2011 Passed out documented as of this encounter (statuses as of 07/28/2022) Medications Medication Sig Dispensed Refills Start Date [...] 90 Cap 3 12/18/2019 Active DIURETIC TITRATION PLANIndications:Melt Helper zahra diastolic congestive heart failure (HCC) [...] 100 Capsule 3 04/01/2022 Active Dexcom G6 [employer] Spacelift Device Use as directed . Supplied by [employer]. [phone] 0 Active Dexcom G6 Sensor Use as directed . Change every 10 days Supplied by [employer]. [phone] Active Dexcom G6 Transmitter Use as directed . Change every 90 days Supplied by [employer]. 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/31/2021 Atherosclerosis of [place] coronary arter 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 12/31/2021 [...] as of this encounter (statuses as of 07/28/2022) Resolved Problems Problem Noted Date Resolved Date [...] as of this encounter (statuses as of 07/28/2022) Immunizations Name Administration Dates Next Due COVID-19 mRNA, LNP-s, No Pre serve, 2-Dose Series (Analiza) 12/29/2020,12/18/2020 COVID-19, LNP-s, No Preserve , Navarro-sucrose, Ages 12+ (Pfizer) 2022,10/01/2021 Pneumococcal Conjugate Vacci ne, 20-valent ([id number]) 03/12/2022 Pneumococcal Polysaccharide PPV23 (Pneumovax) 08/22/2009,06/15/2006 Seasonal [...] - Inhaled Oxygen Concentration - - Weight 147.9 kg (326 lb) 07/28/2022 4:47 PM EDT Height - - Body Mass Index 54.25 07/26/2022 3:58 PM EDT documented in this encounter Progress Notes * Lisa Wilson Health Account Director - 07/28/2022 5:42 PM EDT Picked up scales in [place] and delivered to the patient. She weighed herself and was #[phone]. Reminded her to weigh daily and keep a log. She state she would. documented in this encounter Plan of Treatment Upcoming Encounters Date Type Specialty Care Team Description 07/29/2022 Office Visit Nephrology Clover Osman PA-C [address] [place] [address] 07/30/2022 Home Visit [facility] Brooke Jose RN [address] [place] [address] 08/02/2022 Office Visit Family Medicine Galdino Andujar, DO [address] [facility] [place] [address] 08/04/2022 Office Visit Family Medicine Galdino Andujar, DO [address] [facility] [place] [address] 08/05/2022 Nurse Only [facility], Nurse Annual Wellness Visit [address] [facility] [place] [address] 08/10/2022 Telemedicine [facility] Lucia Garcia CRNP [address] [place] [address] Mira Duong, Community Health Account Director [address] [place] [address] 08/25/2022 Office Visit Pulmonary Nikita Sanchez MD [address] [address] 09/13/2022 Office Visit Family Medicine Galdino Andujar, DO [address] [facility] [place] [address] 01/19/2023 PulmDiagnostic Pulmonary Function West, [address] [facility] [place] [address] Scheduled Procedures Name Priority Associated Diagnoses Date/Ti me COLONOSCOPY FLEXIBLE PROXIMAL DIAGNOSTIC Recall Colon cancer screening Health Maintenance Due Date Last Done Comments Cologuard: Ages 45-75 2000 FOBT: Ages 45-75 2000 Sigmoidoscopy: Ages 45-75 2000 COVID-19 Vaccine (5 - Booster) 06/08/2022 2022, 10/01/2021, 12/29/2020, Additional history exists DIABETES-HGBA1C EVERY 6 MONTHS 11/12/2022 05/12/2022, 01/07/2022, 11/17/2020, Additional history exists GFR - Renal Function 12/31/2022 07/02/2022, 06/18/2022, 05/12/2022, Additional history exists Alb / Creat Ratio 01/07/2023 01/07/2022, , 05/01/2018, Additional history exists CKD PHOS USE SMARTSET 48054 01/07/202312/25, 03/12/2021, 11/17/2020, Additional history exists DIABETES-FOOT EXAM 01/07/2023 01/07/2022, 0 01/14/2021, 11/07/2019, Additional history exists TSH FOR THYROID MEDICATION MONITORING YEARLY 01/07/2023 01/07/2022, 12/25/2020, 05/06/2020, Additional history exists DIABETES-EYE EXAM 05/24/2023 05/24/2022, , 04/07/2020, Additional history exists CKD HGB USE SMARTSET 28659 06/29/202306/29, 06/29/2022, 01/07/2022, Additional history exists Depression [...] Documents on File Type Date Recorded Patient Platform Builder Expl anation Advanced Directive Advanced Directive Advanced [...] Camp Other Health Care Hayden r of Implementation Architect Princess Allen Other Health Care Pow er of Implementation Architect Care Teams Licensed Loan Officer Assistant Relationship Specialty Start Date End Date Galdino Andujar, DO [address] [place] [address] PCP - General Internal Medicine 01/07/22 documented as of this encounter
--- OUTSIDE RECORDS SUMMARY | 2023-06-01 04:28 | External Medical Summary | Summary of Care ---
Author Name Unknown Organization [place] [address] Care Team Providers Care Inhalation Therapy Teacher Name Role Phone Lexii Andujar DO Primary Care Provider [phone] Reason for Visit * Reason Comments eRx-Medication Refill Encounter Details Date Type Department Care Team Description 07/23/2022 Refill Family Practice [address], [place] [address] [place] [id number] Lexii Andujar DO [address] [place] [address] Type 2 diabetes mellitus with hemoglobin A1c goal of 7.0%-8.0% ([facility]) Allergies Active Allergy Reactions Severity Noted Date Comments Codeine 07/08/2014 hallucination Pollen 05/18/2019 Heparin 09/04/2009 Heparin Induced Thrombocytopenia Hydrocodone Neuro complications (Please comment) 07/28/2020 Empagliflozin Other (Please comment) Medium 05/17/2018 3 yeast infections in 6 weeks after starting Morphine And Related 09/16/1997 Hallucinations Tetanus Toxoid Other (Please comment) 06/15/2011 Passed out documented as of this encounter (statuses as of 07/23/2022) Medications Medication Sig Dispensed Refills Start Date End Date Status docusate sodium (STOOL SOFTENER) 100 MG Capsule Take by mouth 100 mg 2 times a day . 0 Active ONETOUCH DELICA LANCETS 33G MISC Check blood sugars 3-4 times daily 180 Each 5 8 Active oxygen GASIndications:ELISSA (obstructive sleep apnea) 2 lpm continuous 0 0 Active ACCU-CHEK SOFTCLIX LANCETS MISC Test blood sugar three or four times daily as directed 400 Each 3 0 Active omeprazole (PRILOSEC) 20 MG CPDR Take 1 Cap by mouth daily. 90 Cap 3 0 Active DIURETIC TITRATION PLANIndications:Chr onic diastolic congestive heart failure (HCC) If no improvement on day 3, contact heart failure managing provider. 1 Each 0 0 Active Blood Glucose Monitoring Suppl (LivelensTOUCH ULTRA 2) w/Device KIT Use to test [...] with hemoglobin A1c goal of 7.0%-8.0% ([facility]) Inject 40 units with meals + [...] before bedtime. 200 Capsule 3 2 Active Ventolin HFA 108 (90 Base) MCG/ACT Inhalation Aerosol Solution Inhale by mouth 2 Puffs every 4 hours as needed for Cough, Shortness of Breath or Wheezing. 18 g 3 2 Active Additional Information Patient not taking. Reported on 06/21/2022 Azelastine HCl 0.1 % Nasal Solution Administer into nostril 1 [place] in the morning AND 1 [place] before bedtime. 30 mL 12 2 Active Nortriptyline HCl 50 MG Oral Capsule (Pamelor)Indication s:Fibromyalgia TAKE ONE CAPSULE BY MOUTH AT BEDTIME 100 Capsule 3 2 Active Dexcom G6 Household Assistant Device Use as directed . Supplied by [employer]. [phone] 0 Active Dexcom G6 Sensor Use as directed . Change every 10 days Supplied by [employer]. [phone] Active Dexcom G6 Transmitter Use as directed . Change every 90 days Supplied by [employer]. [phone] 0 Active rOPINIRole HCl 2 MG Oral Tablet (Requip)Indications :Restless legs syndrome TAKE ONE TABLET BY MOUTH AT BEDTIME 100 Tablet 3 2 Active metFORMIN HCl ER 500 MG Oral Tablet Extended Release 24 Hour (Glucophage XR)Indications:Type 2 diabetes mellitus with hemoglobin A1c goal of less than 8.0% (HCC) Take by mouth 1 Tablet in the morning. 100 Tablet 1 2 Active traMADol HCl 50 MG Oral Tablet (Ultram)Indications :Chronic pain syndrome Take by mouth 1 Tablet every 8 hours as needed for Pain, Severe. 90 Tablet 0 2 Active DULoxetine HCl 60 MG Oral Capsule Delayed Release Particles (Cymbalta)Indicatio ns:Fibromyalgia,Mod erate episode of recurrent major depressive disorder (HCC),Primary osteoarthritis of both knees Take by mouth 1 Capsule in the morning. Along with 30 mg capsule to total 90 mg daily.. 100 Capsule 3 2 Active Levothyroxine Sodium 200 MCG Oral Tablet (Levoxyl)Indication s:Postsurgical hypothyroidism TAKE ONE TABLET BY MOUTH IN THE MORNING AT LEAST 30 MINUTES PRIOR TO BREAKFAST OR OTHER MEDS 100 Tablet 3 2 Active traZODone HCl 50 MG Oral Tablet (Desyrel) Take by mouth 1 Tablet before bedtime. 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 200 Capsule 3 2 Active DULoxetine HCl 30 MG Oral Capsule Delayed Release Particles (Cymbalta) TAKE ONE CAPSULE BY MOUTH ONE TIME DAILY. TAKE WITH 60 MG CAPSULE FOR A TOTAL OF 90 MG 100 Capsule 0 2 Active clonazePAM 0.5 MG Oral Tablet (KlonoPIN)Indicatio ns:Anxiety state Take by mouth 1 Tablet in the morning AND 1 Tablet before bedtime. 60 Tablet 0 2 Active Tresiba FlexTouch 100 UNIT/ML Subcutaneous Solution Pen-injector (Insulin Degludec)Indication s:Type 2 diabetes mellitus with hemoglobin A1c goal of 7.0%-8.0% (HCC) INJECT 60 UNITS UNDER THE SKIN EVERY MORNING 60 mL 3 2 Active Clotrimazole 10 MG Mouth/Throat Valarie (Mycelex Valarie) Take by mouth 10 mg 5 times a day . 0 Active Tresiba FlexTouch 100 UNIT/ML Subcutaneous Solution Pen-injector (Insulin Degludec)Indication s:Type 2 diabetes mellitus with hemoglobin A1c goal of 7.0%-8.0% (HCC) Inject under the skin 60 Units in the morning. 45 mL 3 2 07/23/20 22 Discontinued Hospital, Clinic, or Other Facility Administered Medication Ordered Dose Route Frequency Start Date End Date Status Albuterol Sulfate (Proventil) (2.5 MG/3ML) 0.083% inhalation solution 2.5 mgIndications:Chronic hypoxemic respiratory failure (HCC) 2.5 mg NEBULIZER Q4H PRN 10/08/2021 Active documented as of this encounter (statuses as of 07/23/2022) Active Problems Problem Noted Date Chronic kidney [...] exertion. Currently on 3 L O2 stable Type 2 diabetes mellitus with diabetic c hronic kidney disease 12/31/2021 Last Assessment & Plan: Last hgba1c 7.6. BS reportedly running in the low 200s -Continue trulicity, Tresiba, metformin Heparin 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/31/2021 Atherosclerosis of [place] coronary arter 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 [...] Requip Fibromyalgia 02/02/2016 Abnormality of gait 02/02/[address] 08/19/2014 History of pulmonary [...] as of this encounter (statuses as of 07/23/2022) Resolved Problems Problem Noted Date Resolved Date Acute deep vein thrombosis ( DVT) of [...] as of this encounter (statuses as of 07/23/2022) Immunizations Name Administration Dates Next Due COVID-19 mRNA, LNP-s, No Pre serve, 2-Dose Series (Pfizer) 12/29/2020,12/18/2020 COVID-19, LNP-s, No Preserve , Navarro-sucrose, Ages 12+ (Pfizer) 2022,10/01/2021 Pneumococcal Conjugate Vacci ne, 20-valent ([id number]) 03/12/2022 Pneumococcal Polysaccharide PPV23 (Pneumovax) 08/22/2009,06/15/2006 Seasonal [...] Miscellaneous Notes * Telephone Encounter - Rebecca Starr RPh - 07/23/2022 2:22 PM EDT Signed Prescriptions: Disp Refills Tresiba FlexTouch 100 UNIT/ML Subcutaneous*60 mL 3 Sig: INJECT 60 UNITS UNDER THE SKIN EVERY MORNINGAuthorizing Provider: LEXII ANDUJAR [facility] User: REBECCA STARR documented in this encounter Plan of Treatment Upcoming Encounters Date Type Specialty Care Team Description 07/26/2022 Home Visit Family Medicine Mira Duong, Community Health Inventory Specialist Manager [address] [place] [address] 07/26/2022 Office Visit Family Medicine Lexii Andujar, DO [address] [place] [address] 07/28/2022 Imaging Radiology 07/28/2022 PulmDiagnostic Pulmonary Function West, [address] [place] [address] 07/30/2022 Home Visit [facility] Brooke Jose, RN [address] [place] [address] 08/04/2022 Office Visit Family Medicine Lexii Andujar, DO [address] [place] [address] 08/05/2022 Nurse Only [facility], Nurse Annual Wellness Visit [address] [facility] [address] [place] [address] 08/10/2022 Telemedicine [facility] Lucia Garcia CRNP [address] [place] [address] Mira Duong, Community Health Inventory Specialist Manager [address] [place] [address] 08/25/2022 Office Visit Pulmonary Nikita Sanchez MD [address] [place] [address] 09/13/2022 Office Visit Family Medicine Lexii Andujar, DO [address] [place] [address] Scheduled Procedures Name Priority Associated Diagnoses Date/Ti [...] Additional history exists CKD PHOS USE SMARTSET 11728 01/07/202312/25, 03/12/2021, 11/17/2020, Additional history exists DIABETES-FOOT EXAM 01/07/2023 01/07/2022, 0 01/14/2021, 11/07/2019, Additional history exists TSH FOR THYROID MEDICATION MONITORING YEARLY 01/07/2023 01/07/2022, 12/25/2020, 05/06/2020, Additional history exists DIABETES-EYE EXAM 05/24/2023 05/24/2022, , 04/07/2020, Additional history exists CKD HGB USE SMARTSET 51924 06/29/202306/29, 06/29/2022, 01/07/2022, Additional history exists Depression [...] Documents on File Type Date Recorded 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
--- OUTSIDE RECORDS SUMMARY | 2023-06-01 04:28 | External Medical Summary | Summary of Care ---
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, NYHA class 1 and CKD stage 3 ([facility]); Recurrent deep vein thrombosis (DVT) of both lower extremities ([facility]); Frank filter in place; Dyslipidemia; Postsurgical hypothyroidism; ELISSA (obstructive sleep apnea); Venous insufficiency; History of pulmonary embolus (PE); Statin intolerance; Gastroesophageal reflux disease with esophagitis without hemorrhage; Hyperparathyroidism, secondary renal ([facility]); Heparin 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); Atherosclerosis of [place] coronary artery of [place] heart without angina pectoris; Type 2 diabetes mellitus with stage 3b chronic kidney disease, with long-term current use of insulin ([facility]); SOB (shortness of breath); Chronic diastolic congestive heart failure ([facility]); Lumbar radiculopathy; Spinal stenosis of lumbar region without neurogenic claudication; Hospital discharge follow-up Allergies Active Allergy Reactions [...] 0 04/08/2020 Active Blood Glucose Monitoring Suppl ([employer] PlanUCH ULTRA 2) w/Device KIT Use to test [...] 12/29/2020 Active Nerve Pain Relief Sublingual Tablet SublingualIndicatio [...] 100 Capsule 3 04/01/2022 Active Dexcom G6 Merchandise Support Associate Device Use as directed . Supplied by [employer]. [phone] 0 Active Dexcom G6 Sensor Use as directed . Change every 10 days Supplied by [employer]. [phone] 0 Active Dexcom G6 Transmitter Use as directed . Change every 90 days Supplied by [employer]. [phone] 0 Active rOPINIRole HCl 2 MG Oral [...] Pain, Severe. 60 Tablet 0 07/26/2022 Active ACCU-CHEK SOFTCLIX LANCETS MISC Test blood sugar three or four times daily as directed 400 Each 3 12/18/2019 07/26/20 Discontinu ed(Medicat ion List Clean Up) Ventolin HFA 108 (90 Base) MCG/ACT Inhalation Aerosol Solution Inhale by mouth 2 Puffs every 4 hours as needed for Cough, Shortness of Breath or Wheezing. 18 g 3 02/18/2022 07/26/20 Discontinu ed(Adverse reaction) Azelastine HCl 0.1 % Nasal Solution Administer into nostril 1 [place] in the morning AND 1 [place] before bedtime. 30 mL 12 02/18/2022 07/26/20 Discontinu ed(Medicat ion List Clean Up) traMADol HCl 50 MG Oral Tablet (Ultram)Indications :Chronic pain syndrome Take by mouth 1 Tablet every 8 hours as needed for Pain, Severe. 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 200 Tablet 3 06/18/2022 10/31/20 22 Discontinu ed(Refill) DULoxetine HCl 30 MG Oral Capsule Delayed Release Particles (Cymbalta) TAKE ONE CAPSULE BY MOUTH ONE TIME DAILY. TAKE WITH 60 MG CAPSULE FOR A TOTAL OF 90 MG 100 Capsule 0 06/30/2022 07/26/20 22 Discontinu ed(Medicat ion/Dose Changed) oxyCODONE-Acetamino phen 5-325 MG Oral Tablet (Percocet)Indicatio ns:Lumbar radiculopathy,Spina l stenosis of lumbar region without neurogenic claudication Take by mouth 1 Tablet every 12 hours as needed for Pain, Severe. 60 Tablet 0 07/26/2022 07/26/20 Discontinu ed(Refill) Hospital, Clinic, or Other Facility [...] 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/31/2021 Atherosclerosis of [place] coronary arter 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 12/31/2021 [...] mRNA, LNP-s, No Pre serve, 2-Dose Series ([employer]) 12/29/2020,12/18/2020 COVID-19, LNP-s, No Preserve , Navarro-sucrose, Ages 12+ (Pfizer) 2022,10/01/2021 Pneumococcal Conjugate Vacci ne, 20-valent (Hvsmobl60) 03/12/2022 Pneumococcal Polysaccharide PPV23 (Pneumovax) 08/22/2009,06/15/2006 Seasonal [...] 15 Quit: 08/26 Smokeless Tobacco: Never Used Tobacco Cessation:Counseling Given: Yes Alcohol Use Standard [...] Sign Reading Time Taken Comments Blood Pressure 120/66 07/26/2022 3:58 PM EDT Pulse 88 07/26/2022 3:58 PM EDT Temperature 36.1 C (97 F) 07/26/2022 3:58 PM EDT Respiratory Rate 16 07/26/2022 3:58 PM EDT Oxygen Saturation 96% 07/26/2022 3:58 PM EDT Inhaled Oxygen Concentration - - Weight 150.1 kg (331 lb) 07/26/2022 3:58 PM EDT Height 165.1 cm (5' 5") 07/26/2022 3:58 PM EDT Body Mass Index 55.08 07/26/2022 3:58 PM EDT documented in this encounter Progress Notes * Galdino Andujar, DO - 07/28/2022 8:18 AM EDT SUBJECTIVE: Stephanie Camp is a 67 year old female. Chief Complaint Patient presents with Hospital Follow-Up Hospital Follow-Up Recent Admission: Patient was recently admitted to [facility]. The date of discharge was 07/22/2022. Discharge report received and reviewed. HPI: Patient is a 67 year old female with a history of DM type II, CKD stage III, Diastolic CHF, chronichypoxic respiratory failure, HTN, Recurrent DVT, IVC filter, Hyperlipidemia, statin intolerance, GERD, lumbar disc disease, restless leg syndrome, Sleep Apnea on CPAP, Heparin Induced Thrombocytopenia, and Ambulatory Dysfunction that is seen for hospital follow up. The patient was admitted due to cellulitis of the right hand from a cat bite, frequent falls, CHF, and chronic hypoxic respiratory failure. Furosemide was increased to 60 mg two times a day. Patient has worsening back pain. Chronic shortness of breath is present. No chest pain is present. Weight is stable and leg swelling has not im proved. 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, NYHA class 1 and CKD stage 3 ([facility]) I13.0, I50.30, N18.30 Hyperparathyroidism, secondary renal ([facility]) N25.81 Vasculitis ([facility]) I77.6 Primary osteoarthritis of left knee M17.12 Spinal stenosis of lumbar region without neurogenic claudication M48.061 Heparin 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) D75.829 Atherosclerosis of [place] coronary arter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 I25.10 Carotid artery stenosis, asymptomatic, right I65.21 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 Encounter for long-term (current) use of other medications Z79.899 Type 2 diabetes mellitus with stage 3b chronic kidney disease ([facility]) E11.22, N18.32 Type 2 diabetes mellitus with hemoglobin A1c goal of less than 8.0% ([facility]) E11.9 Recurrent deep vein thrombosis (DVT) of both lower extremities ([facility]) I82.403 Chronic hypoxemic respiratory failure ([facility]) J96.11 Chronic kidney disease, stage 3b ([facility]) N18.32 Current Outpatient Medications Medication Sig Dispense Refill docusate sodium (STOOL SOFTENER) 100 MG Capsule Take by mouth 100 mg 2 times a day . ONETOUCH DELICA LANCETS 33G MISC Check blood sugars 3-4 times daily 180 Each 5 oxygen GAS 2 lpm continuous omeprazole (PRILOSEC) 20 MG CPDR Take 1 Cap by mouth daily. 90 Cap 3 DIURETIC TITRATION PLAN If no improvement on day 3, contact heart failure managing provider. 1 Each 0 Blood Glucose Monitoring Suppl ([employer].comTOUCH ULTRA 2) w/Device KIT Use to test [...] Do not take unless instructed by provider Cholecalciferol 125 MCG (5000 UT) Oral Capsule Take 1,000 Units by mouth daily. BD Pen Needle Short U/F 31G X [...] total 90 mg daily.. 100 Capsule 3 Levothyroxine Sodium 200 MCG [...] INJECT 60 UNITS UNDER THE SKIN IN THEEVENING ) 60 mL 3 Clotrimazole 10 MG Mouth/Throat [...] needed for Pain, Severe. 60 Tablet 0 Dexcom G6 Merchandise Support Associate Device Use as directed . Supplied by [employer] [phone] (Patient not taking: Reported on 07/26/2022 ) Dexcom G6 Sensor Use as directed . Change every 10 days Supplied by [employer] [phone] (Patient not taking: Reported on 07/26/2022 ) Dexcom G6 Transmitter Use as directed . Change every 90 days Supplied by [employer]. [phone] (Patient not taking: Reported on 07/26/2022 ) Current Facility-Administered Medications Medication Dose Route Frequency Provider Last Rate Last Admin Albuterol Sulfate (Proventil) (2.5 MG/3ML) 0.083% inhalation solution 2.5 mg 2.5 mg Nebulizer Q4H PRN TATIANA Negrete Current and discharge medications have been reconciled. Review of patient's allergies indicates: Allergen Reactions Jardiance [Empagliflozin] Other (Please comment) 3 yeast infections in 6 weeks after starting Codeine hallucination Hay Fever [Pollen] Heparin Heparin Induced Thrombocytopenia Hydrocodone Neuro complications (Please comment) Morphine And Related Hallucinations Tetanus Toxoid Other (Please comment) Passed out OBJECTIVE: BP 120/66 | Pulse 88 | Temp 36.1 C (97 F) | Resp 16 | Ht 1.651 m (5' 5") | Wt (!) 150.1 kg (331lb) | LMP 03/11/2003 | SpO2 96% | BMI 55.08 kg/m | BSA 2.62 m REVIEW OF SYSTEMS: Review of Systems [...] concentration and sleep disturbance. PHYSICAL EXAM: BP 120/66 | Pulse 88 | Temp 36.1 C (97 F) | Resp 16 | Ht 1.651 m (5' 5") | Wt (!) 150.1 kg (331lb) | LMP 03/11/2003 | SpO2 96% | BMI 55.08 kg/m | BSA 2.62 m Physical Exam Vitals and nursing note reviewed. Constitutional: General: She is not in acute distress. Appearance: She is obese. She is not toxic-appearing. HENT: Head: Normocephalic [...] Psychiatric: Mood and Affect: Mood is depressed. Cognition and Memory: Cognition and memory normal. 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, NYHA class 1 and CKD stage 3 (HCC) - MAGNESIUM; Future; Expected date: 07/26/2022 - COMPREHENSIVE METABOLIC PANEL; Future; Expected date: 07/26/2022 Continue Furosemide and Metolazone Recurrent deep vein thrombosis (DVT) of both lower extremities (HCC) Continue Abixaban Frank filter in place Dyslipidemia Postsurgical hypothyroidism Continue Levothyroxine ELISSA (obstructive sleep apnea) - PULSE OX W/ REST/EXERCISE, MULTIPLE (OP) Venous insufficiency History of pulmonary embolus (PE) - PULSE OX W/ REST/EXERCISE, MULTIPLE (OP) Statin intolerance Gastroesophageal reflux disease with esophagitis without hemorrhage Hyperparathyroidism, secondary renal (HCC) Heparin 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) Atherosclerosis of [place] coronary artery of [place] heart without angina pectoris Type 2 diabetes mellitus with stage 3b chronic kidney disease, with long-term current use of insulin (HCC) Continue Tresiba and Trulicity SOB (shortness of breath) - PULSE OX W/ REST/EXERCISE, MULTIPLE (OP) Chronic diastolic congestive heart failure (HCC) Lumbar radiculopathy - oxyCODONE-Acetaminophen 5-325 MG Oral Tablet (Percocet); Take by mouth 1 Tablet every 12 hours asneeded for Pain, Severe. Spinal stenosis of lumbar region without neurogenic claudication - oxyCODONE-Acetaminophen 5-325 MG Oral Tablet (Percocet); Take by mouth 1 Tablet every 12 hours asneeded for Pain, Severe. Hospital discharge follow-up - DISCH MED RECON CUR MED LIS Follow Up: Return in about 1 week (around 08/02/2022), or if symptoms worsen or fail to improve. Galdino Andujar DO * Pop Greer [facility] - 07/26/2022 3:21 PM EDT Med rec completed with pt documented in this encounter Plan of Treatment Upcoming Encounters Date Type Specialty Care Team Description 07/28/2022 Laboratory [facility] [address] 07/28/2022 Imaging Radiology 07/29/2022 Office Visit Nephrology Clover Osman PA-C [address] [place] [address] 07/30/2022 [facility] [address] 08/02/2022 Office Visit Family Medicine Galdino Andujar DO [address] [place] [address] 08/04/2022 Office Visit Family Medicine Galdino Andujar DO [address] [place] [address] 08/05/2022 Nurse Only [facility], Nurse Annual Wellness Visit [address] [place] [address] [address] [facility] [place] [address] 08/10/2022 [facility]medicine [facility] Lucia Garcia CRNP [address] [facility] [address] Mira Du[facility], [facility] Horizontal Drill Operator [facility] [place] [address] 08/25/2022 Office Visit [facility] [address] [facility] [address] 09/13/2022 Office Visit Family Medicine Galdino Andujar, DO [address] [facility] [place] [address] 01/19/2023 PulmDiagnostic Pulmonary Function [place], Pft [address] [place] [address] Scheduled Orders Name Type Priority Associated Diagnoses Orde r Schedule MAGNESIUM Lab Routine 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, NYHA class 1 and CKD stage 3 (HCC) Expected: 07/26/2022 (Approximate), Expires: 07/26/2023 COMPREHENSIVE METABOLIC PANEL Lab Routine 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, NYHA class 1 and CKD stage 3 (HCC) Expected: 07/26/2022 (Approximate), Expires: 07/26/2023 Scheduled Procedures Name Priority Associated Diagnoses Date/Ti [...] Additional history exists CKD PHOS USE SMARTSET 18492 01/07/202312/25, 03/12/2021, 11/17/2020, Additional history exists DIABETES-FOOT EXAM 01/07/2023 01/07/2022, 0 01/14/2021, 11/07/2019, Additional history exists TSH FOR THYROID MEDICATION MONITORING YEARLY 01/07/2023 01/07/2022, 12/25/2020, 05/06/2020, Additional history exists DIABETES-EYE EXAM 05/24/2023 05/24/2022, , 04/07/2020, Additional history exists CKD HGB USE SMARTSET 73720 06/29/202306/29, 06/29/2022, 01/07/2022, Additional history exists Depression [...] Procedure Name Priority Date/Time Associated Diagnosis Comments PULSE OX W/ REST/EXERCISE, MULTIPLE (OP) Routine 07/26/2022 ELISSA (obstructive sleep apnea) History of pulmonary embolus (PE) SOB (shortness of breath) documented in this encounter Results * PULSE OX W/ REST/EXERCISE, MULTIPLE (OP) (07/26/2022) Pulse Oximetry-Initial Rest 89 Pulse Oximetry-During Exercise 72 Pulse Oximetry-Post Exercise 90Comment:post exericse with oxygen and walking pulse ox is 98 with 3 LPM Pulse Oximetry-Post Nebulizer Specimen documented in this encounter Visit Diagnoses Diagnosis Frequent falls- Primary Personal history of fall Cellulitis of right upper extremity Cellulitis and abscess of upper arm and forearm Abnormality of gait 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, NYHA class 1 and CKD stage 3 (HCC) Recurrent deep vein thrombosis (DVT) of both lower extremities (HCC) Frank filter in place Other postprocedural status Dyslipidemia Other and unspecified hyperlipidemia Postsurgical hypothyroidism ELISSA (obstructive sleep apnea) Obstructive sleep apnea (adult) (pediatric) Venous insufficiency Unspecified venous (peripheral) insufficiency History of pulmonary embolus (PE) Personal history of pulmonary embolism Statin intolerance Other drug allergy Gastroesophageal reflux disease with esophagitis without hemorrhage Hyperparathyroidism, secondary renal (HCC) Secondary hyperparathyroidism (of renal origin) Heparin 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) 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HIT) Atherosclerosis of [place] coronary artery of [place] heart without angina pectoris Type 2 diabetes mellitus with stage 3b chronic kidney disease, with long-term current use of insulin (HCC) SOB (shortness of breath) Shortness of breath Chronic diastolic congestive heart failure (HCC) Chronic diastolic heart failure Lumbar radiculopathy Thoracic or lumbosacral neuritis or radiculitis, unspecified Spinal stenosis of lumbar region without neurogenic claudication Spinal stenosis, lumbar region, without neurogenic claudication Hospital discharge follow-up Other follow-up examination documented in this encounter Advance Directives Documents on File Type Date Recorded Patient Control Room Helper Expl anation Advanced Directive Advanced Directive Advanced [...] Camp Other Health Care [place] r of Cable Tv Installer Princessambar Allen Other Health Care Pow er of Cable Tv Installer Care Teams Wash Box Operator Relationship Specialty Start Date End Date Galdino Andujar, DO [address] [place] [address] PCP - General Internal Medicine 01/07/22 documented as of this encounter
--- OUTSIDE RECORDS SUMMARY | 2023-06-01 04:28 | External Medical Summary | Summary of Care ---
Author Name Unknown Organization [place] [address] Care Team Providers Care Maintenance Coordinator Name Role Phone ZiaandrewsGaldino DO Primary Care Provider [phone] Reason for Visit * Reason Comments [facility]: Acute brad 1 Encounter Details Date Type Department Care Team Description 07/23/2022 Home Visit [facility], [facility] [address] [place] [place] [address] Brooke Jose RN [address] [place] [address] Allergies Active Allergy Reactions Severity Noted Date [...] apnea) 2 lpm continuous 0 11/28/2019 Active ACCU-CHEK SOFTCLIX LANCETS MISC Test blood sugar three or four times daily as directed 400 Each 3 12/18/2019 Active omeprazole (PRILOSEC) 20 MG CPDR Take 1 Cap by mouth daily. 90 Cap 3 12/18/2019 Active DIURETIC TITRATION PLANIndications:Magnet Maker 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 1 Each 0 04/08/2020 Active Blood Glucose Monitoring Suppl (SynkerUCH ULTRA 2) w/Device KIT Use to test [...] goal of 7.0%-8.0% ([facility]) Inject 40 units with meals + sliding scale 1 units for every 25 units BG > 150. 121 mL 3 11/04/2021 Active Tresiba FlexTouch 100 UNIT/ML Subcutaneous Solution Pen-injector (Insulin Degludec)Indications :Type 2 diabetes mellitus with hemoglobin A1c goal of 7.0%-8.0% ([facility]) Inject under the skin 60 Units in the morning. 45 mL 3 11/04/2021 Active Apixaban 5 MG [...] before bedtime. 200 Capsule 3 01/19/2022 Active Ventolin HFA 108 (90 Base) MCG/ACT Inhalation Aerosol Solution Inhale by mouth 2 Puffs every 4 hours as needed for Cough, Shortness of Breath or Wheezing. 18 g 3 02/18/2022 Active Additional Information Patient not taking. Reported on 06/21/2022 Azelastine HCl 0.1 % Nasal Solution Administer into nostril 1 [place] in the morning AND 1 [place] before bedtime. 30 mL 12 02/18/2022 Active Nortriptyline HCl 50 MG Oral Capsule (Pamelor)Indications :Fibromyalgia TAKE ONE CAPSULE BY MOUTH AT BEDTIME 100 Capsule 3 04/01/2022 Active Dexcom G6 Cloth Bleaching Supervisor Device Use as directed . Supplied by [employer], [employer]. [phone] 0 Active Dexcom G6 Sensor Use as directed . Change every 10 days Supplied by [employer]. [phone] 0 Active Dexcom G6 Transmitter Use as directed . Change every 90 days Supplied by [employer] [facility]. [phone] 0 Active rOPINIRole HCl 2 MG Oral Tablet (Requip)Indications: Restless legs syndrome TAKE ONE TABLET BY MOUTH AT BEDTIME 100 Tablet 3 04/15/2022 Active metFORMIN HCl ER 500 MG Oral Tablet Extended Release 24 Hour (Glucophage XR)Indications:Type 2 diabetes mellitus with hemoglobin A1c goal of less than 8.0% ([facility]) Take by mouth 1 Tablet in the morning. 100 Tablet 1 05/12/2022 Active traMADol HCl 50 MG Oral Tablet (Ultram)Indications: Chronic pain syndrome Take by mouth 1 Tablet every 8 hours as needed for Pain, Severe. 90 Tablet 0 06/08/2022 Active DULoxetine HCl 60 MG Oral Capsule [...] before bedtime. 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 200 Capsule 3 06/18/2022 Active DULoxetine HCl 30 MG Oral Capsule Delayed Release Particles (Cymbalta) TAKE ONE CAPSULE BY MOUTH ONE TIME DAILY. TAKE WITH 60 MG CAPSULE FOR A TOTAL OF 90 MG 100 Capsule 0 06/30/2022 Active clonazePAM 0.5 MG Oral Tablet (KlonoPIN)Indication s:Anxiety state Take by mouth 1 Tablet in the morning AND 1 Tablet before bedtime. 60 Tablet 0 07/02/2022 Active Clotrimazole 10 MG Mouth/Throat Valarie (Mycelex Valarie) Take by mouth 10 mg 5 times a day . 0 Active Hospital, Clinic, or Other Facility [...] reportedly running in the low 200s -Continue trulicMarketo [place], Tresiba, metformin Heparin 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/31/2021 Atherosclerosis of [place] coronary arter 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 12/31/2021 [...] mRNA, LNP-s, No Pre serve, 2-Dose Series (GBS) 12/29/2020,12/18/2020 COVID-19, LNP-s, No Preserve , Navarro-sucrose, Ages 12+ (Pfizer) 2022,10/01/2021 Pneumococcal Conjugate Vacci ne, 20-valent ([id number]) 03/12/2022 Pneumococcal Polysaccharide PPV23 (Pneumovax) 08/22/2009,06/15/2006 Seasonal [...] Sign Reading Time Taken Comments Blood Pressure 126/60 07/23/2022 9:31 AM EDT Pulse 85 07/23/2022 9:31 AM EDT Temperature 36.6 C (97.8 F) 07/23/2022 9 :31 AM EDT Respiratory Rate 22 07/23/2022 9:31 AM EDT Oxygen Saturation 95% 07/23/2022 9:3 1 AM EDT 4lnc Inhaled Oxygen Concentration - - Weight 151.5 kg (334 lb) 07/23/2022 9:3 1 AM EDT hospital d/c wt Height - - Body Mass Index 55.58 07/02/2022 2:31 PM EDT documented in this encounter Progress Notes * Brooke Jose RN - 07/23/2022 7:57 AM EDT [facility] Segment ProducerMeeting Planner Visit Date: 07/23/2022 Time: 7:57 AM Name: Stephanie Camp : 1955 Situation: brad 1 Background: [facility] Enrollment Date: 06/14/22 - Focused Care (3-9 months) PMHx: Frank filter, CHF, CHF, DVT, venous insufficiency, vasculitis, CAD, carotid stenosis, chronic hypoxemic respiratory failure, ELSISA, o2 dependent, GERD, DM, Hx PE, spinal stenosis Utilization: 07/16 - - [facility] Admission - falls, acute on chronic CHF, acute on chronic respiratory failure,cellulitis R hand d/t cat bite 08/04 and 08/25/22 - scheduled for cataract surgeries Assessment: D/c home from [facility] yesterday D/c paperwork in home - reviewed Pt has just moved into [facility] and has living room filled with boxes, paths mostly clear FALLS x2 IN PAST 3 MONTHS: Both times she was without o2 and became weak and fell Has PERS but ''got lost at the hospital'' - will have LES f/u New apt has safety pull strings which notifies 911 BREATHING: At baseline 2lnc at rest 4lnc with activity Crackles b/l bases Wearing cpap with 2lnc qhs FLUID STATUS: No LE edema Crackles bl bases Breathing at baseline D/c wt 334lbs Unable to locate her scale - is packed - instructed to find enmanuel and weigh daily DM: A1C in hospital was 8.0 bsg 215 this morning Unable to locate Dexcom supplies - will look for this weekend Follows with [facility] MEDS: Pt had filled pill box - noted to be incorrect with multiple meds Box emptied Set up with number system using hospital d/c list Has all meds in home [facility] Shira Gross LPN requesting new Rxs at time of office visit on 07/26/22 Also informed her that Advair is making pt's mouth sore - using Nystatin troches as directed and rinsing mouth after Advair Problems/Symptoms: Review of Systems Constitutional: Negative. Eyes: Negative. Respiratory: Positive for shortness of breath (AVENDAÑO at times). Negative for cough. Cardiovascular: Negative. Gastrointestinal: Negative. Endocrine: Negative. Genitourinary: Negative. Musculoskeletal: Positive for arthralgias, back pain, gait problem and myalgias. Allergic/Immunologic: Negative. Neurological: Positive for weakness. Hematological: Bruises/bleeds easily. Psychiatric/Behavioral: Negative. Physical Exam: BP 126/60 | Pulse 85 | Temp 36.6 C (97.8 F) | Resp 22 | Wt (!) 151.5 kg (334 lb) Comment: hospital d/c wt | LMP 03/11/2003 | SpO2 95% Comment: 4lnc | BMI 55.58 kg/m | BSA 2.64 m Pain 6 Physical Exam Constitutional: Appearance: She is obese. [...] status is at baseline. Gait: Gait abnormal. [facility]-10 Completed this Visit: Yes. [facility]-10: Reason Completed: Status post fall Status post ED visit/hospital admission [facility]-10 ([facility]) Fall Risk Assessment Tool Age 65+: Yes (07/23/22899) Diagnosis (3 or more co-existing): Yes (07/23/22899) Prior history of falls within 3 months: Yes (07/23/22899) Incontinence: Yes (07/23/22899) Visual impairment: Yes (07/23/22899) Environmental hazards: Yes (07/23/22899) Poly Pharmacy (4 or more prescriptions - any type): Yes (07/23/22899) Pain affecting level of function: Yes (07/23/22899) Cognitive impairment: No (07/23/22899) [facility]-10 Interventions: Fall education provided, reviewed/provided Fall brochure Treatment/Plan: 07/23/22 - working towards pill packs with [facility] Ambulate with roller walker at ALL times o2 2lnc at rest, 4Lnc with activity - [facility] [phone] WEAR O2 AT ALL TIMES OR BECOMES WEAK AND FALLS cpap with 2l qhs Apap, tramadol and topical pain relievers for pain No NSAIDS IF CALLS IN WITH WORSENING GENERALIZED PAIN PLEASE MAKE SURE SHE IS TAKING HER MAGNESIUM-OTHERWISE MAG GOES LOW AND CAUSES PAIN Low na, ccd diet, 1.5L fluid restriction Wear b/l le support hose-on day/off night Zaroxolyn prn for fluid overload-take only as advised DRY Dk=195sny as of 07/22/22 - to weigh daily and record (has own scale) Has Dexcom 5 - follows with [facility], glucose monitor in home for backup Per ortho - not a candidate for knee surgery until loses weight Chronic back pain/sciatica - gets injections of SI joints LES referral to help locate PERS at [facility] or obtain replacement 07/23/22 Home Interventions Provided: Home Intervention: Other; organized meds and filled pill box Consulted PCP/Specialist Reinforced current Plan of Care, including self-management and medication regimen Updated Advanced Care Planning Note Updated Exacerbation Plan Patient's Goals of Care: 1. Find Dexcom 2. Find scale 3. Unpack and organize apt Patient's 'Red Flags': 1. Unable to wear o2 for any reason (leads to falls) 2. Wt increase to 337lbs 3. Increased sob Patient Needs to Remember: Call [facility] with red flags Referrals Needed: LES - assist with locating PERS at [facility], did not receive back from hospital Follow Up: Is there cellular connectivity/connectivity in the home? Yes Does the patient have internet in the home? Yes Patient encouraged to call the intake phone number for all urgent but not emergent issues. Scheduled to follow up with patient in one week - fill pill box [facility] Brooke Jose RN 07/23/2022 7:57 AM documented in this encounter Plan of Treatment Upcoming Encounters Date Type Specialty Care Team Description 07/26/2022 Home Visit Family Medicine Mira Duong, [facility] [address] [place] [address] 07/26/2022 Office Visit Family Medicine Galdino Andujar, [address] [place] [address] 07/28/2022 Imaging Radiology 07/28/2022 PulmDiagnostic Pulmonary Function [facility], [facility] [address] [facility] [address] 07/30/2022 [facility] Brooke Jose RN [address] [place] [address] 08/04/2022 Office Visit Family Medicine Galdino Andujar, [address] [place] [address] 08/05/2022 Nurse Only [employer], Nurse Annual Wellness Visit [address] [place] [address] 08/25/2022 Office Visit Pulmonary Nikita Sanchez MD [address] [place] [id number] 09/13/2022 Office Visit Family Medicine Galdino Andujar, [address] [place] [address] Scheduled Procedures Name Priority Associated Diagnoses Date/Ti [...] Additional history exists CKD PHOS USE SMARTSET 61935 01/07/202312/25, 03/12/2021, 11/17/2020, Additional history exists DIABETES-FOOT EXAM 01/07/2023 01/07/2022, 0 01/14/2021, 11/07/2019, Additional history exists TSH FOR THYROID MEDICATION MONITORING YEARLY 01/07/2023 01/07/2022, 12/25/2020, 05/06/2020, Additional history exists DIABETES-EYE EXAM 05/24/2023 05/24/2022, , 04/07/2020, Additional history exists CKD HGB USE SMARTSET 96893 06/29/202306/29, 06/29/2022, 01/07/2022, Additional history exists Depression [...] Documents on File Type Date Recorded Patient Network Security Consultant Expl anation Advanced Directive Advanced Directive Advanced [...] Camp Other Health Care Hayden r of Picu Nurse Princess Allen Other Health Care Pow er of Picu Nurse Care Teams Maintenance Coordinator Relationship Specialty Start Date End Date Galdino Andujar, DO [address] [place] [address] PCP - General Internal Medicine 01/07/22 documented as of this encounter"
--- OUTSIDE RECORDS SUMMARY | 2023-06-01 04:28 | External Medical Summary | Summary of Care ---
Author Name Unknown Organization [place] [address] Care Team Providers Care Diesel Technician Name Role Phone Galdino Andujar DO Primary Care Provider [phone] Reason for Visit * Reason Onset Date Comments Encounter Created in Error 07/28/2022 Encounter Details Date Type Department Care Team Description 07/28/2022 Telephone [facility] [address] [facility] [place] [address] Brooke Jose RN [address] [facility] [place] [address] Encounter Created in Error Allergies Active Allergy Reactions Severity Noted Date [...] 90 Cap 3 12/18/2019 Active DIURETIC TITRATION PLANIndications:Meters Superintendent 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 1 Each 0 04/08/2020 Active Blood Glucose Monitoring Suppl (CMD BioscienceTOUCH ULTRA 2) w/Device KIT Use to test [...] 100 Capsule 3 04/01/2022 Active Dexcom G6 Abrasive Grader Device Use as directed . Supplied by [employer], [employer]. [phone] Active Dexcom G6 Sensor Use as directed . Change every 10 days Supplied by [employer], [employer]. [phone] Active Dexcom G6 Transmitter Use as directed . Change every 90 days Supplied by [employer]. [phone] Active rOPINIRole HCl 2 MG Oral Tablet (Requip)Indications: Restless legs syndrome TAKE ONE TABLET BY MOUTH AT BEDTIME 100 Tablet 3 04/15/2022 Active metFORMIN HCl ER 500 MG Oral Tablet Extended Release 24 Hour (Glucophage XR)Indications:Type 2 diabetes mellitus with hemoglobin A1c goal of less than 8.0% ([facility]) Take by mouth 1 Tablet [...] thrombocytopenia (HIT) 0 12/31/2021 Atherosclerosis of [place] coronary arter 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 [...] Requip Fibromyalgia 02/02/2016 Abnormality of gait 02/02/2016 [place] filter in place 08/19/2014 History of pulmonary [...] (Pfizer) 2022,10/01/2021 Pneumococcal Conjugate Vacci ne, 20-valent ([id number]) 03/12/2022 Pneumococcal Polysaccharide PPV23 (Pneumovax) 08/22/2009,06/15/2006 Seasonal [...] Telephone Encounter - Brooke Jose RN - 07/28/2022 9:50 AM EDT Error documented in this encounter Plan of Treatment Upcoming Encounters Date Type Specialty Care Team Description 07/28/2022 Laboratory Laboratory Ord[facility], Lab [facility] [address] [place] [address] 07/28/2022 Imaging Radiology 07/29/2022 Office Visit Nephrology Clover Osman PA-C [address] [place] [address] 07/30/2022 Home Visit [facility] Brooke Jose RN [address] [place] [address] 08/02/2022 Office Visit Family Medicine Galdino Andujar, DO [address] [place] [address] 08/04/2022 Office Visit Family Medicine Galdino Andujar, DO [address] [place] [address] 08/05/2022 Nurse Only [facility], Nurse Annual Wellness Visit [address] [address] 08/10/2022 Telemedicine [facility] Lucia Garcia CRNP [address] [place] [address] Mira Duong, Community Health Supervisor Force Adjustment [address] [place] [address] 08/25/2022 Office Visit Pulmonary Nikita Sanchez MD [address] [place] [address] 09/13/2022 Office Visit Family Medicine Galdino Andujar, DO [address] [place], [place] [address] 01/19/2023 PulmDiagnostic Pulmonary Function West, Pft [address] [place] [address] Scheduled Procedures Name Priority Associated Diagnoses Date/Ti [...] Additional history exists CKD PHOS USE SMARTSET 41360 01/07/2023 0412/2021, 03/12/2021, 11/17/2020, Additional history exists DIABETES-FOOT EXAM 01/07/2023 01/07/2022, 0 01/14/2021, 11/07/2019, Additional history exists TSH FOR THYROID MEDICATION MONITORING YEARLY 01/07/2023 01/07/2022, 12/25/2020, 05/06/2020, Additional history exists DIABETES-EYE EXAM 05/24/2023 05/24/2022, , 04/07/2020, Additional history exists CKD HGB USE SMARTSET 31158 06/29/202306/29, 06/29/2022, 01/07/2022, Additional history exists Depression [...] Documents on File Type Date Recorded Patient Psychiatric Orderly Expl anation Advanced Directive Advanced Directive Advanced [...] Camp Other Health Care Hayden r of Cost Control Supervisor Princess Allen Other Health Care Pow er of Cost Control Supervisor Care Teams Diesel Technician Relationship Specialty Start Date End Date Galdino Andujar, DO [address] [place] [address] PCP - General Internal Medicine 01/07/22 documented as of this encounter
--- OUTSIDE RECORDS SUMMARY | 2023-06-01 04:28 | External Medical Summary | Summary of Care ---
Author Name Unknown Organization [place] [address] Care Team Providers Care Office Support Associate Name Role Phone PratimaGaldino DO Primary Care Provider Reason for Visit * Reason Comments [facility]: Maintenance Encounter Details Date Type Department Care Team Description 07/26/2022 Home Visit Care Coordination [address] [place] [address] Mira Duong, [facility] Limousine Driver [address] [place] [address] Allergies Active Allergy Reactions Severity Noted Date Comments Codeine 07/08/2014 hallucination Pollen 05/18/2019 Heparin 09/04/2009 Heparin Induced Thrombocytopenia Hydrocodone Neuro complications (Please comment) 07/28/2020 Empagliflozin Other (Please comment) Medium 05/17/2018 3 yeast infections in 6 weeks after starting Morphine And Related 09/16/1997 Hallucinations Tetanus Toxoid Other (Please comment) 06/15/2011 Passed out documented as of this encounter (statuses as of 07/26/2022) Medications Medication Sig Dispensed Refills Start Date [...] 90 Cap 3 12/18/2019 Active DIURETIC TITRATION PLANIndications:Pelt Salter 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 1 Each 0 04/08/2020 Active Blood Glucose Monitoring Suppl (BeezikUCH ULTRA 2) w/Device KIT Use to test [...] times daily 500 Each 3 11/04/2021 Active Handmarkuch Ultra Blue In Vitro Strip (Glucose Blood) [...] hemoglobin A1c goal of 7.0%-8.0% ([facility]) Inject 40 units with meals [...] % Nasal Solution Administer into nostril 1 [place] in the morning AND 1 [place] before bedtime. 30 mL 12 02/18/2022 Active Nortriptyline HCl 50 MG Oral Capsule (Pamelor)Indications :Fibromyalgia TAKE ONE CAPSULE BY MOUTH AT BEDTIME 100 Capsule 3 04/01/2022 Active Dexcom G6 Dental Hygiene Professor Device Use as directed . Supplied by [employer], [employer]. [phone] 0 Active Dexcom G6 Sensor Use as directed . Change every 10 days Supplied by [employer]. [phone] Active Dexcom G6 Transmitter Use as directed . Change every 90 days Supplied by [employer]. 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/31/2021 Atherosclerosis of picayune coronary arter 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 12/31/2021 [...] as of this encounter (statuses as of 07/26/2022) Resolved Problems Problem Noted Date Resolved Date [...] as of this encounter (statuses as of 07/26/2022) Immunizations Name Administration Dates Next Due COVID-19 mRNA, LNP-s, No Pre serve, 2-Dose Series (Zelgor) 12/29/2020,12/18/2020 COVID-19, LNP-s, No Preserve , Navarro-sucrose, Ages 12+ (Pfizer) 2022,10/01/2021 Pneumococcal Conjugate Vacci ne, 20-valent ([id number]) 03/12/2022 Pneumococcal Polysaccharide PPV23 (Pneumovax) 08/22/2009,06/15/2006 Seasonal [...] Sign Reading Time Taken Comments Blood Pressure 118/62 07/26/2022 12:09 PM EDT Pulse 85 07/26/2022 12:09 PM EDT Temperature 37.1 C (98.7 F) 07/26/2022 12:09 PM E DT Respiratory Rate - - Oxygen Saturation 99% 07/26/2022 12:09 PM EDT Inhaled Oxygen Concentration - - Weight - - Height - - Body Mass Index - - documented in this encounter Progress Notes * Mira Duong, [facility] Funeral Limousine Driver - 07/26/2022 12:12 PM EDT [facility] Limousine Driver Visit Date: 07/26/2022 Time: 12:12 PM Name: Stpehanie Camp : 1955 Referral Source: manager forensic Source of Information: Patient Spoken language: haitian Patient can read in Cook Islander: Yes. System Trainer needed: No. COVID-19 screening completed: Yes Vitals: Vital signs completed: Yes, vital signs within normal range. BP 118/62 | Pulse 85 | Temp 37.1 C (98.7 F) | LMP 03/11/2003 | SpO2 99% Condition Changes: Changes in health or social status since last visit: nothing The patient has new concerns since last visit: No Progress towards goals since last visit: Medications: Medication review completed? No, none requested Does the patient have barriers to medication adherence? Yes. Remembering to reorder prescriptions: she has no barriers to her medication adherenceno Patient reports difficulty paying for medications or might in the future: No. Telehealth: This is a telehealth visit: No. Symptoms Surveys and Evaluations: MAHC10 completed this visit: Yes. Score is 4 or more? Yes, notified Provider/Life Science Research Assistant Last flowsheet values for [facility]: Age 65+: 1 (07/26/2022 12:00 PM) Diagnosis (3 or more co-existing): 1 (07/26/2022 12:00 PM) Prior history of falls within 3 months: 1 (07/26/2022 12:00 PM) Incontinence: 1 (07/26/2022 12:00 PM) Visual impairment: 1 (07/26/2022 12:00 PM) Impaired functional mobility: 1 (07/26/2022 12:00 PM) Environmental hazards: 1 (07/26/2022 12:00 PM) Poly Pharmacy (4 or more prescriptions - any type): 1 (07/26/2022 12:00 PM) Pain affecting level of function: 1 (07/26/2022 12:00 PM) Cognitive impairment: 0 (07/26/2022 12:00 PM) Score - a score of 4 or more is considered at risk for fallin (07/26/2022 12:00 PM) Heart Failure Checklist A "good day" for the patient looks like ever day. Today is different than a "good day": No Patient describes sleep as ok once her back is out of spasm Change in sleep pattern or ease. this is just since shee fell and her back has spasm The patient has been asked to track the amount of fluid they drink: Yes. Describe how patient tracks fluid volume: she does not keep track There is an [facility] scale in the home: No. Typically, the patient's meals look like breakfast-coffee/cereal Lunch-bananna Dinner-balanced meal with meat/dalia/veggie/chicken Patient's food choices are lower in sodium. [...] used, halls and doorways easy to navigate? No Are there trip hazards in the home? Yes Are there working smoke detectors/CO2 detectors? Yes Is a health condition present or an air quality concern that an air conditioner or other coolingdevice will help? Yes Do stairs in the home have railings? N/A Is there a medical alert or phone near patient? Yes Are walkways clear and well lit? No She just moved into apartment and boxes are everywhere Does member identify any safety issues related [...] Yes. Type of help the patient receives: pcking up food/rx or help with moving. Patient perceives the help they receive as [...] you? Sometimes. Specify plan/referrals/care team members notified: right now family members have covid Plan: Reinforced patient's three red flags by the care team 1. SOB 2. Weight over 337 3. Unable to wear 02 Patient verduzco not have any scales, dexacome and patches and is having problems with her oxygen tank. She received a new one, but its not able to fill her old tanks. LES helped the patient put away some of the things in her apartment. When LES arrived se was talking and crying about some of the family has covid now. She is worried about them. She is frustrated as she needs a new oxygen concentrator that can fill her small tanks LES notified [address] that the pt is planning on going to her office visit today without her oxygen as she mcfadden no potable ones. She has her PERS and it was sitting beside her on the shelf. She does not know where any scales areso the LES will see about getting a bariatric scale in [place]. Follow Up: Patient encouraged to call the intake phone number for all urgent but not emergent issues. Scheduled to follow up with patient by phone in the next few days. Mira Duong [facility] Limousine Driver 07/26/2022 12:12 PM documented in this encounter Plan of Treatment Upcoming Encounters Date Type Specialty Care Team Description 07/26/2022 Office Visit Family Medicine [facility]dujar[facility] [address] [facility] [address] 07/26/2022 Pharmacy [facility], Pharmacist [address] [facility] [address] [facility], [place] [address] 07/28/2022 Imaging Radiology 07/30/2022 Home Visit [facility] Brooke Jose, RN [address] [place] [address] 08/04/2022 Office Visit Family Medicine Galdino Andujar, DO [address] [facility] [address] 08/05/2022 Nurse Only [facility] [employer], Nurse Annual Wellness Visit [address] [facility] [place] [address] 08/10/2022 Telemedicine [facility] Lucia Garcia, LIVER TRIMMER [address] [place] [address] Mira Duong, [facility] Limousine Driver [address] [place] [address] 08/25/2022 Office Visit Pulmonary Nikita Sanchez MD [address] [place] [id number] 09/13/2022 Office Visit Family Medicine Galdino Andujar, DO [address] [facility] [place] [address] 01/19/2023 PulmDiagnostic Pulmonary Function [place], [facility] [address] [facility] [address] Scheduled Procedures Name Priority Associated Diagnoses Date/Ti [...] Additional history exists CKD PHOS USE SMARTSET 29023 01/07/202312/25, 03/12/2021, 11/17/2020, Additional history exists DIABETES-FOOT EXAM 01/07/2023 01/07/2022, 0 01/14/2021, 11/07/2019, Additional history exists TSH FOR THYROID MEDICATION MONITORING YEARLY 01/07/2023 01/07/2022, 12/25/2020, 05/06/2020, Additional history exists DIABETES-EYE EXAM 05/24/2023 05/24/2022, , 04/07/2020, Additional history exists CKD HGB USE SMARTSET 94068 06/29/202306/29, 06/29/2022, 01/07/2022, Additional history exists Depression [...] Documents on File Type Date Recorded Patient Craft Coordinator Expl anation Advanced Directive Advanced Directive Advanced [...] Camp Other Health Care Hayden r of Nut Roaster Helper Princess Allen Other Health Care Pow er of Nut Roaster Helper Care Teams Office Support Associate Relationship Specialty Start Date End Date Galdino Andujar, DO [address] [place] [address] PCP - General Internal Medicine 01/07/22 documented as of this encounter
--- OUTSIDE RECORDS SUMMARY | 2023-06-01 04:28 | External Medical Summary | Summary of Care ---
Author Name Unknown Organization [place] [address] Care Team Providers Care Middle [employer] Sports Coach Name Role Phone PratimaGaldino DO Primary Care Provider [phone] Encounter Details Date Type Department Care Team Description 07/23/2022 Orders Only [facility], [place] [address] [facility] [place] [address] Brooke Jose, RN [address] [facility] [address] At risk for falls* Allergies Active Allergy Reactions Severity Noted Date [...] 90 Cap 3 12/18/2019 Active DIURETIC TITRATION PLANIndications:Client Hr Manager 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 1 Each 0 04/08/2020 Active Blood Glucose Monitoring Suppl (RerecipeTOUCH ULTRA 2) w/Device KIT Use to test [...] goal of 7.0%-8.0% ([facility]) Inject 40 units with meals + sliding scale 1 units for every 25 units BG > 150. 121 mL 3 11/04/2021 Active Tresiba FlexTouch 100 UNIT/ML Subcutaneous Solution Pen-injector (Insulin Degludec)Indications :Type 2 diabetes mellitus with hemoglobin A1c goal of 7.0%-8.0% ([facility]) Inject under the skin 60 Units in [...] % Nasal Solution Administer into nostril 1 [place] in the morning AND 1 [place] before bedtime. 30 mL 12 02/18/2022 Active Nortriptyline HCl 50 MG Oral Capsule (Pamelor)Indications :Fibromyalgia TAKE ONE CAPSULE BY MOUTH AT BEDTIME 100 Capsule 3 04/01/2022 Active Dexcom G6 Boilermaker Apprentice Device Use as directed . Supplied by [employer] ([employer]). [phone] Active Dexcom G6 Sensor Use as directed . Change every 10 days Supplied by [employer]. [phone] Active Dexcom G6 Transmitter Use as directed . Change every 90 days Supplied by [place] [employer] [facility] [employer], [facility]. [phone] Active rOPINIRole HCl 2 MG Oral Tablet (Requip)Indications: Restless legs syndrome TAKE ONE TABLET BY MOUTH AT BEDTIME 100 Tablet 3 04/15/2022 Active metFORMIN HCl ER 500 MG Oral Tablet Extended Release 24 Hour (Glucophage XR)Indications:Type 2 diabetes mellitus with hemoglobin A1c goal of less than 8.0% ([facility]) Take by mouth 1 Tablet in the [...] mRNA, LNP-s, No Pre serve, 2-Dose Series ([employer]) 12/29/2020,12/18/2020 COVID-19, LNP-s, No Preserve , Navarro-sucrose, Ages 12+ (Pfizer) 2022,10/01/2021 Pneumococcal Conjugate Vacci ne, 20-valent ([id number]) 03/12/2022 Pneumococcal Polysaccharide PPV23 (Pneumovax) 08/22/2009,06/15/2006 Seasonal [...] Visit Family Medicine [facility]dino Andujar, DO [address] [facility] [address] 07/28/2022 Imaging Radiology 07/28/2022 PulmDiagnostic Pul[facility] Function [place], [facility] [facility] [place] [address] 07/30/2022 Home Visit [facility] Brooke Jose, RN [address] [facility] [place] [address] 08/04/2022 Office Visit Family Galdino Toscano DO [address] [facility] [address] 08/05/2022 Nurse Only Ancillary [place], Nurse Annual Wellness Visit [address] [facility] [address] 08/25/2022 Office Visit Pulmonary Nikita Sanchez MD [address] [place] [address] 09/13/2022 Office Visit Family Galdino Toscano DO [address] [facility] [address] Scheduled Procedures Name Priority Associated Diagnoses Date/Ti [...] Additional history exists CKD PHOS USE SMARTSET 02966 01/07/202312/25, 03/12/2021, 11/17/2020, Additional history exists DIABETES-FOOT EXAM 01/07/2023 01/07/2022, 0 01/14/2021, 11/07/2019, Additional history exists TSH FOR THYROID MEDICATION MONITORING YEARLY 01/07/2023 01/07/2022, 12/25/2020, 05/06/2020, Additional history exists DIABETES-EYE EXAM 05/24/2023 05/24/2022, , 04/07/2020, Additional history exists CKD HGB USE SMARTSET 51165 06/29/202306/29, 06/29/2022, 01/07/2022, Additional history exists Depression [...] as of this encounter Visit Diagnoses Diagnosis At risk for falls- Primary Personal history of fall documented in this encounter Advance Directives Documents on File Type Date Recorded Patient Building Insulation Installer Expl anation Advanced Directive Advanced Directive Advanced [...] Camp Other Health Care Hayden r of Clinical Informatics Strategist Princess Other Health Care Pow er of Clinical Informatics Strategist Care Teams Middle [employer] Sports Coach Relationship Specialty Start Date End Date Galdino Andujar, DO [address] [place] [address] PCP - General Internal Medicine 01/07/22 documented as of this encounter
--- OUTSIDE RECORDS SUMMARY | 2023-06-01 04:28 | External Medical Summary | Summary of Care ---
Author Name Unknown Organization [place] [address] Care Team Providers Care Public Safety Officer Name Role Phone Galdino Andujar DO Primary Care Provider [phone] Reason for Visit * Reason Comments Medication Management Encounter Details Date Type Department Care Team Description 07/26/2022 Pharmacy Family Practice 65 [facility], [place] [address] [place] [address] [place], Pharmacist [address] [address] Type 2 diabetes mellitus with stage 3b chronic kidney disease, with long-term current use of insulin ([facility])* Allergies Active Allergy Reactions Severity Noted [...] 0 04/08/2020 Active Blood Glucose Monitoring Suppl (LollipuffTOUCH ULTRA 2) w/Device KIT Use to test [...] of 7.0%-8.0% ([facility]) Inject 40 units with meals + [...] 100 Capsule 3 04/01/2022 Active Dexcom G6 Sharepoint Specialist Device Use as directed . Supplied by [employer] Novadiol. [phone] Active Dexcom G6 Sensor Use as directed . Change every 10 days Supplied by [employer]. [phone] Active Dexcom G6 Transmitter Use as directed . Change every 90 days Supplied by [employer]. [phone] Active rOPINIRole HCl 2 MG Oral Tablet (Requip)Indications :Restless legs syndrome TAKE ONE TABLET BY MOUTH AT BEDTIME 100 Tablet 3 04/15/2022 Active metFORMIN HCl ER 500 MG Oral Tablet Extended Release 24 Hour (Glucophage XR)Indications:Type 2 diabetes mellitus with hemoglobin A1c goal of less than 8.0% ([facility]) Take by mouth 1 Tablet in [...] of 7.0%-8.0% ([facility]) INJECT 60 UNITS UNDER THE SKIN EVERY MORNING 60 mL 3 07/23/2022 Active Additional Information Patient taking differently: INJECT 60 UNITS UNDER THE SKIN IN THE EVENING, Reported on 07/26/2022 Clotrimazole 10 MG Mouth/Throat Alem (Mycelex Alem) Take by mouth 10 mg 5 times a day . 0 Active traMADol HCl 50 MG Oral Tablet (Ultram)Indications :Chronic pain syndrome Take by mouth 1 Tablet every 8 hours as needed for Pain, Severe. 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/31/2021 Atherosclerosis of [place] coronary arter 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 12/31/2021 [...] (Pfizer) 2022,10/01/2021 Pneumococcal Conjugate Vacci ne, 20-valent ([id number]) 03/12/2022 Pneumococcal Polysaccharide PPV23 (Pneumovax) 08/22/2009,06/15/2006 Seasonal [...] this encounter Progress Notes * Pop Greer, [facility] - 07/26/2022 4:43 PM EDT Name: Stephanie Camp Date: 07/26/2022 Time: 3:21 PM Date of Hospital Admission/Primary Diagnosis: 07/15/2022 Fall due to not using oxygen Date of Discharge from Hospital: 07/22/2022 Medication changes from Prior to Admission to Discharge: Added: none Modified: increased Furosemide 60mg twice daily Discontinued: none Review of patient's allergies indicates: Allergen Reactions Jardiance [Empagliflozin] Other (Please comment) 3 yeast infections in 6 weeks after starting Codeine hallucination Hay Fever [Pollen] Heparin Heparin Induced Thrombocytopenia Hydrocodone Neuro complications (Please comment) Morphine And Related Hallucinations Tetanus Toxoid Other (Please comment) Passed out Current Outpatient Medications Medication Instructions ACCU-CHEK SOFTCLIX LANCETS MISC Test blood sugar three or four times daily as directed Acetaminophen (ACETAMINOPHEN EXTRA STRENGTH) 500 mg, Oral, Q6H PRN Apixaban (ELIQUIS) 5 mg, Oral, BID, 10mg twice a day x 7 days then 5mg twice a day Azelastine HCl 0.1 % Nasal Solution 1 [place], Nasal, BID BD Pen Needle Short U/F 31G X 8 MM (Insulin Pen Needle) use five times daily Blood Glucose Monitoring Suppl ([employer] ULTRA 2) w/Device KIT Use to test BG values Cholecalciferol 1,000 Units, Oral, DAILY clonazePAM (KLONOPIN) 0.5 mg, Oral, BID Clotrimazole (MYCELEX ALEM) 10 mg, Oral, 5XDAY CPAP QHS Cyclobenzaprine HCl 10 MG Oral Tablet (Flexeril) TAKE ONE TABLET BY MOUTH AT BEDTIME NEEDED FOR SPASM Dexcom G6 Sharepoint Specialist Device Does Not Apply, Supplied by
[employer] Inc[employer]
[phone] Dexcom G6 Sensor Does Not Apply, Change every 10 days
Supplied by
[employer] Inc[employer]
[phone] Dexcom G6 Transmitter Does Not Apply, Change every 90 days Supplied by [employer] Novadiol.
[phone] dicyclomine (BENTYL) 20 mg, Oral, QID PRN, For abdominal pain DIURETIC TITRATION PLAN If no improvement on day 3, contact heart failure managing provider. DULoxetine (CYMBALTA) 60 mg, Oral, DAILY, Along with 30 mg capsule to total 90 mg daily. DULoxetine HCl 30 MG Oral Capsule Delayed Release Particles (Cymbalta) TAKE ONE CAPSULE BY MOUTH ONE TIME DAILY. TAKE WITH 60 MG CAPSULE FOR A TOTAL OF 90 MG Furosemide (LASIX) 40 mg, Oral, BID Gabapentin (NEURONTIN) 300 mg, Oral, BID levothyroxine (LEVOXYL) 50 mcg, Oral, DAILY, (at least 30 min prior to breakfast or other meds) Levothyroxine Sodium 200 MCG Oral Tablet (Levoxyl) TAKE ONE TABLET BY MOUTH IN THE MORNING AT LEAST 30 MINUTES PRIOR TO BREAKFAST OR OTHER MEDS Magnesium Oxide 400 mg, Oral, BID meclizine (ANTIVERT) 12.5 mg, Oral, TID PRN metFORMIN ER (GLUCOPHAGE XR) 500 mg, Oral, DAILY metOLazone (ZAROXOLYN) 2.5 mg, Oral, DAILY PRN, Do not take unless instructed by provider Nerve Pain Relief Sublingual Tablet Sublingual Oral Nortriptyline HCl 50 MG Oral Capsule (Pamelor) TAKE ONE CAPSULE BY MOUTH AT BEDTIME NovoLOG FlexPen 100 UNIT/ML Subcutaneous Solution Pen-injector (insulin aspart) Inject 40 unitswith meals + sliding scale 1 units for every 25 units BG > 150. omeprazole (PRILOSEC) 20 mg, Oral, DAILY ondansetron (ZOFRAN) 4 mg, Oral, Q6H PRN ONETOUCH DELICA LANCETS 33G MISC Check blood sugars 3-4 times daily OneTouch Ultra Blue In Vitro Strip (Glucose Blood) Check sugars 3-4 times daily, E11.9 oxygen GAS 2 lpm continuous Potassium Chloride ER 20 MEQ Oral Tablet Extended Release 20 mEq, Oral, BID rOPINIRole HCl 2 MG Oral Tablet (Requip) TAKE ONE TABLET BY MOUTH AT BEDTIME Stool Softener 100 mg, Oral, BID traMADol (ULTRAM) 50 mg, Oral, Q8H PRN traZODone (DESYREL) 50 mg, Oral, HS Tresiba FlexTouch 100 UNIT/ML Subcutaneous Solution Pen-injector (Insulin Degludec) INJECT 60 UNITS UNDER THE SKIN EVERY MORNING Trulicity 4.5 MG/0.5ML Subcutaneous Solution Pen-injector (Dulaglutide) Inject 1 pen under the skin weekly Ventolin HFA 108 (90 Base) MCG/ACT Inhalation Aerosol Solution 2 Puffs, Inhalation, Q4H PRN Medication Organization/Adherence: Who manages their medications?: Self Uses pillbox organizer: Yes Has home care nurse or caregiver: Yes [facility] once a week or more if she needsthem. 1. How sure are you that you need medications to treat your health problems? Very sure 2. How sure are you that you can take your medication everyday as prescribed when you are at home? Very sure 3. When you are at home, how often do you skip doses of medications or stop taking your medications? Never except vitamins. Sometimes misses doses of vitamins. 4. How difficult is it for you to pay for your medications? Not difficult at all 5. How often do you experience side effects from your medications? Never Medication Discussion/Questions: Medication list, doses, and directions were reviewed with patient following patient discharge from [facility]. Patient was hospitalized due to fall. After moving to a new apartment, there was a problem with thedelivery of her oxygen. She states her fall at home was due to not having a supply of oxygen. Patient states never had dexa scan to assess risk of fracture. Pt does not have her Dexcom reader and supplies due to lost in move. She would like to have them reordered. Is using OneTouch strips to test blood glucose currently. Does the patient currently have all of their medications in their home?: Yes, Is enrolled in automatic refill with [facility] Does patient have any troubles obtaining medications?: No Pharmacies Used: [facility] After the encounter: Medications were added/discontinued/modified from list:Yes, Pt not using Accucheck strips (Using OneTouch Ultra) Pt not using Azelastine nasal spray due to causing sores. Pt states take 60mg of Furosemide twice daiy. (1&1/2 tablet of 40 mg). This is consistent with [facility] discharge summary. Pt now taking Potassium 20meq twice daily after hospital discharge (this was how it was originally prescribed). Using Tresiba 60 units in the evening. Using Trulicity 4.5mg weekly on Sundays. Pt not sure of strength on Vit D. Pt not using Albuterol inhaler due to causing sores in her mouth. Patient had questions regarding medications:No Signed:Pop Greer [facility] Clinical Pharmacist Ana Pagan Date:07/26/2022 at 3:21 PM documented in this encounter Plan of Treatment Upcoming Encounters Date Type Specialty Care Team Description 07/27/2022 Telemedicine [facility], Pharmacist [address] [place] [address] 07/28/2022 Imaging Radiology 07/30/2022 Home Visit [facility] Brooke Jose RN 132 [place] [address] 08/04/2022 Office Visit Family Medicine Galdino Andujar, DO 293 [facility] [place] [address] 08/05/2022 Nurse Only [facility], Nurse Annual Wellness Visit [address] [place] [address] 08/10/2022 Telemedicine [facility] Lucia Garcia CRNP 132 [facility] [place] [address] Mira Duong, Community Health Inspector [employer] [address] [place] [address] 08/25/2022 Office Visit Pulmonary Nikita Sanchez MD [address] [place] [address] 09/13/2022 Office Visit Family Medicine Galdino Andujar, DO 293 [place] [place] [address] 01/19/2023 PulmDiagnostic Pulmonary Function [place], Pft [facility] [place] [address] Scheduled Procedures Name Priority Associated Diagnoses Date/Ti [...] Additional history exists CKD PHOS USE SMARTSET 71942 01/07/202312/25, 03/12/2021, 11/17/2020, Additional history exists DIABETES-FOOT EXAM 01/07/2023 01/07/2022, 0 01/14/2021, 11/07/2019, Additional history exists TSH FOR THYROID MEDICATION MONITORING YEARLY 01/07/2023 01/07/2022, 12/25/2020, 05/06/2020, Additional history exists DIABETES-EYE EXAM 05/24/2023 05/24/2022, , 04/07/2020, Additional history exists CKD HGB USE SMARTSET 55158 06/29/202306/29, 06/29/2022, 01/07/2022, Additional history exists Depression [...] Documents on File Type Date Recorded Patient Electric Power Superintendent Expl anation Advanced Directive Advanced Directive Advanced [...] Camp Other Health Care Hayden r of Software Test Automation Engineer Princess Allen Other Health Care Pow er of Software Test Automation Engineer Care Teams Public Safety Officer Relationship Specialty Start Date End Date Galdino Andujar, DO [address] [facility], [place] [address] PCP - General Internal Medicine 01/07/22 documented as of this encounter
--- OUTSIDE RECORDS SUMMARY | 2023-06-01 04:29 | External Medical Summary | Summary of Care ---
Author Name Unknown Organization [facility] Address [place] [address] Care Team Providers Care Hot Iron Worker Name Role Phone Galdino Andujar DO Primary Care Provider [phone] Reason for Visit * Reason Onset Date Comments [facility]: Maintenance 07/16/2022 Encounter Details Date Type Department Care Team Description 07/16/2022 Scheduled Telephone [facility], [facility] [address] [place] [address] Coordinator, [facility] [address] [place] [address] Allergies Active Allergy Reactions Severity Noted Date Comments Codeine 07/08/2014 hallucination Pollen 05/18/2019 Heparin 09/04/2009 Heparin Induced Thrombocytopenia Hydrocodone Neuro complications (Please comment) 07/28/2020 Empagliflozin Other (Please comment) Medium 05/17/2018 3 yeast infections in 6 weeks after starting Morphine And Related 09/16/1997 Hallucinations Tetanus Toxoid Other (Please comment) 06/15/2011 Passed out documented as of this encounter (statuses as of 07/16/2022) Medications Medication Sig Dispensed Refills Start Date [...] 90 Cap 3 12/18/2019 Active DIURETIC TITRATION PLANIndications:Network Support 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 1 Each 0 04/08/2020 Active Blood Glucose Monitoring Suppl (Active-SemiUCH ULTRA 2) w/Device KIT Use to test [...] ([facility]) Inject under the skin 60 Units in [...] % Nasal Solution Administer into nostril 1 [place] in the morning AND 1 [place] before bedtime. 30 mL 12 02/18/2022 Active Nortriptyline HCl 50 MG Oral Capsule (Pamelor)Indications :Fibromyalgia TAKE ONE CAPSULE BY MOUTH AT BEDTIME 100 Capsule 3 04/01/2022 Active Dexcom G6 Advance Agent Device Use as directed . Supplied by [employer]. [phone] Active Dexcom G6 Sensor Use as directed . Change every 10 days Supplied by [employer] [facility] [employer], [facility]. [phone] Active Dexcom G6 Transmitter Use as directed . Change every 90 days Supplied by [employer]. [phone] Active rOPINIRole HCl 2 MG Oral [...] 90 MG 100 Capsule 0 06/30/2022 Active Clotrimazole 10 MG Mouth/Throat Valarie (Mycelex Valarie)Indications:T hrush Take by mouth 1 Lozenge 5 times a day for 14 days. Allow tablet to slowly dissolve in your mouth 70 Valarie 0 07/02/2022 Active clonazePAM 0.5 MG Oral Tablet (KlonoPIN)Indication s:Anxiety state Take by mouth 1 Tablet in the morning AND 1 Tablet before bedtime. 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 TENOSYNOVITIS FOOT-ANKLE 12/26/2001 017 Goiter 01/13/2000 06/28/2011 BACKACHE NOS 08/26/1999 05/24/2017 OBESITY, UNSPECIFIED 08/26/1999 12/23/2009 Overview: Per Obesity Taxonomy Perforation of intestine 017 Overview: COLON Diverticulitis documented as of this encounter (statuses as of 07/16/2022) Immunizations Name Administration Dates Next Due COVID-19 mRNA, LNP-s, No Pre serve, 2-Dose Series ([employer] 12/29/2020,12/18/2020 COVID-19, LNP-s, No Preserve , Navarro-sucrose, Ages 12+ (Pfizer) 2022,10/01/2021 Pneumococcal Conjugate Vacci ne, 20-valent ([id number]) 03/12/2022 Pneumococcal Polysaccharide PPV23 (Pneumovax) 08/22/2009,06/15/2006 Seasonal [...] Telephone Encounter - Mena Cornejo RN - 07/16/2022 2:50 PM EDT Call to patient to f/u after ER visit. Left msg requesting call back to [facility]. Chart reviewed. H&P from [facility] in chart dated 07/15/2022. Call to [facility]. Patient is currently admitted to facility. Xenia Cornejo RN [facility] Can Filling Machine Operator [facility] at Home documented in this encounter Plan of Treatment Upcoming Encounters Date Type Specialty Care Team Description 07/22/2022 Office Visit Dermatology Micki Hernández MD [address] [place] [address] 07/28/2022 Imaging Radiology 07/28/2022 PulmDiagnostic Pulmonary Function [place], Pft 132 [facility] [place] [address] 08/04/2022 Office Visit Family Medicine Galdino Andujar, DO 293 [place] [address] 08/05/2022 Nurse Only Ancillary [place], Nurse Annual Wellness Visit 65 [facility] 293 [place] [address] 08/25/2022 Office Visit Pulmonary Nikita Sanchez MD [address] [place] [address] 09/13/2022 Office Visit Family Medicine Galdino Andujar, DO 293 [facility] [place] [address] Scheduled Procedures Name Priority Associated Diagnoses Date/Ti [...] Additional history exists CKD PHOS USE SMARTSET 84404 01/07/202312/25, 03/12/2021, 11/17/2020, Additional history exists DIABETES-FOOT EXAM 01/07/2023 01/07/2022, 0 01/14/2021, 11/07/2019, Additional history exists TSH FOR THYROID MEDICATION MONITORING YEARLY 01/07/2023 01/07/2022, 12/25/2020, 05/06/2020, Additional history exists DIABETES-EYE EXAM 05/24/2023 05/24/2022, , 04/07/2020, Additional history exists CKD HGB USE SMARTSET 72017 06/29/202306/29, 06/29/2022, 01/07/2022, Additional history exists Depression [...] Documents on File Type Date Recorded Patient Linen Checker Expl anation Advanced Directive Advanced Directive Advanced [...] Camp Other Health Care Hayden r of Seeing Eye Dog Trainer Princess Staplesfany Other Health Care Pow er of Seeing Eye Dog Trainer Care Teams Hot Iron Worker Relationship Specialty Start Date End Date Galdino Andujar, DO 293 [place] [address] PCP - General Internal Medicine 01/07/22 documented as of this encounter
--- OUTSIDE RECORDS SUMMARY | 2023-06-01 04:29 | External Medical Summary | Summary of Care ---
Author Name Unknown Organization [place] [address] Care Team Providers Care Audiovisual Production Specialist Name Role Phone Galdino Andujar DO Primary Care Provider [phone] Reason for Visit * Reason Onset Date Comments No Show 07/15/2022 Encounter Details Date Type Department Care Team Description [facility] 132 [facility] [place] [address] Vera Capellan RN 132 [facility] [place] [address] NO SHOW/FAILED TO KEEP APPOINTMENT* Allergies Active Allergy Reactions Severity Noted Date Comments Codeine 07/08/2014 hallucination Pollen 05/18/2019 Heparin 09/04/2009 Heparin Induced Thrombocytopenia Hydrocodone Neuro complications (Please comment) 07/28/2020 Empagliflozin Other (Please comment) Medium 05/17/2018 3 yeast infections in 6 weeks after starting Morphine And Related 09/16/1997 Hallucinations Tetanus Toxoid Other (Please comment) 06/15/2011 Passed out documented as of this encounter (statuses as of 07/15/2022) Medications Medication Sig Dispensed Refills Start Date [...] 90 Cap 3 12/18/2019 Active DIURETIC TITRATION PLANIndications:Cement Mason Apprentice 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 1 Each 0 04/08/2020 Active Blood Glucose Monitoring Suppl ([employer] ULTRA 2) w/Device KIT Use to [...] A1c goal of 7.0%-8.0% ([facility]) Inject under the skin 60 Units in [...] % Nasal Solution Administer into nostril 1 [place] in the morning AND 1 [place] before bedtime. 30 mL 12 02/18/2022 Active Nortriptyline HCl 50 MG Oral Capsule (Pamelor)Indications :Fibromyalgia TAKE ONE CAPSULE BY MOUTH AT BEDTIME 100 Capsule 3 04/01/2022 Active Dexcom G6 E Commerce Analyst Device Use as directed . Supplied by [employer]. [phone] Active Dexcom G6 Sensor Use as directed . Change every 10 days Supplied by [facility] [employer] [facility], [facility]. [phone] Active Dexcom G6 Transmitter Use as directed . Change every 90 days Supplied by [employer] [facility]. [phone] 0 Active rOPINIRole HCl 2 MG Oral Tablet (Requip)Indications: Restless legs syndrome TAKE ONE TABLET BY MOUTH AT BEDTIME 100 Tablet 3 04/15/2022 Active metFORMIN HCl ER 500 MG Oral Tablet Extended Release 24 Hour (Glucophage XR)Indications:Type 2 diabetes mellitus with hemoglobin A1c goal of less than 8.0% ([facility]) Take by mouth 1 Tablet in [...] as of this encounter (statuses as of 07/15/2022) Active Problems Problem Noted Date Chronic kidney [...] Requip Fibromyalgia 02/02/2016 Abnormality of gait 02/02/[address] 08/19/2014 History of pulmonary [...] as of this encounter (statuses as of 07/15/2022) Resolved Problems Problem Noted Date Resolved Date [...] as of this encounter (statuses as of 07/15/2022) Immunizations Name Administration Dates Next Due COVID-19 mRNA, LNP-s, No Pre serve, 2-Dose Series ([employer]) 12/29/2020,12/18/2020 COVID-19, LNP-s, No Preserve , Navarro-sucrose, Ages 12+ (Pfizer) 2022,10/01/2021 Pneumococcal Conjugate Vacci ne, 20-valent ([id number]) 03/12/2022 Pneumococcal Polysaccharide PPV23 (Pneumovax) 08/22/2009,06/15/2006 Seasonal [...] as of this encounter Progress Notes * Vera Capellan RN - 07/15/2022 1:36 PM EDT Patient failed to keep scheduled appointment. Arrived to pt's home for scheduled home visit. No answer at door. Called pt on cell phone and she answered, reports that she is on her way to the ED via ambulance. She reports she had another fall and was unable to get up. Will add to scheduled tomorrow for f/u. Vera Capellan RN documented in this encounter Plan of Treatment Upcoming Encounters Date Type Specialty Care Team Description 07/16/2022 Scheduled Telephone [facility] Setup Operator, [place] [facility] [address] 07/22/2022 Office Visit Dermatology Micki Hernández MD 200 [place] [address] 07/28/2022 Imaging Radiology 07/28/2022 PulmDiagnostic Pulmonary Function [place], Pft 132 [facility] [place] [address] 08/04/2022 Office Visit Family Medicine Galdino Andujar, DO 293 [place] [address] 08/05/2022 Nurse Only Ancillary [employer], Nurse Annual Wellness Visit [address] [place] [address] 08/25/2022 Office Visit Pulmonary Nikita Sanchez MD [address] [place] [address] 09/13/2022 Office Visit Family Medicine Galdino Andujar, 293 [place] [address] Scheduled Procedures Name Priority Associated Diagnoses Date/Ti [...] Additional history exists CKD PHOS USE SMARTSET 95092 01/07/202312/25, 03/12/2021, 11/17/2020, Additional history exists DIABETES-FOOT EXAM 01/07/2023 01/07/2022, 0 01/14/2021, 11/07/2019, Additional history exists TSH FOR THYROID MEDICATION MONITORING YEARLY 01/07/2023 01/07/2022, 12/25/2020, 05/06/2020, Additional history exists DIABETES-EYE EXAM 05/24/2023 05/24/2022, , 04/07/2020, Additional history exists CKD HGB USE SMARTSET 97362 06/29/202306/29, 06/29/2022, 01/07/2022, Additional history exists Depression [...] as of this encounter Visit Diagnoses Diagnosis NO SHOW/FAILED TO KEEP APPOINTMENT- Primary documented in this encounter Advance Directives Documents on File Type Date Recorded Patient Aboriginal Education Worker Coordinator Expl anation Advanced Directive Advanced Directive [...] Camp Other Health Care Hayden r of Clothes Marker Princess Allen Other Health Care Pow er of Clothes Marker Care Teams Audiovisual Production Specialist Relationship Specialty Start Date End Date Galdino Andujar, DO [address] [place] [address] PCP - General Internal Medicine 01/07/22 documented as of this encounter
--- OUTSIDE RECORDS SUMMARY | 2023-06-01 04:29 | External Medical Summary | Summary of Care ---
Author Name Unknown Organization [place] [address] Care Team Providers Care Infection Prevention Specialist Name Role Phone Galdino Andujar DO Primary Care Provider [phone] Encounter Details Date Type Department Care Team Description 07/22/2022 Scan Encounter Family Practice 65 [facility] [address] [place] [phone] Galdino Andujar DO [address] [place] [address] <No scans attached> Allergies Active Allergy Reactions [...] 90 Cap 3 12/18/2019 Active DIURETIC TITRATION PLANIndications:Dye Weigher Helper 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 1 Each 0 04/08/2020 Active Blood Glucose Monitoring Suppl (Texan HostingUCH ULTRA 2) w/Device KIT Use to test [...] times daily 500 Each 3 11/04/2021 Active Incentive Logicuch Ultra Blue In Vitro Strip (Glucose Blood) [...] mellitus with hemoglobin A1c goal of 7.0%-8.0% ([facility]) Inject 40 units with meals + sliding scale 1 units for every 25 units BG > 150. 121 mL 3 11/04/2021 Active Tresiba FlexTouch 100 UNIT/ML Subcutaneous Solution Pen-injector (Insulin Degludec)Indications :Type 2 diabetes mellitus with hemoglobin A1c goal of 7.0%-8.0% ([facility]) Inject under the skin 60 Units in [...] % Nasal Solution Administer into nostril 1 [place] in the morning AND 1 [place] before bedtime. 30 mL 12 02/18/2022 Active Nortriptyline HCl 50 MG Oral Capsule (Pamelor)Indications :Fibromyalgia TAKE ONE CAPSULE BY MOUTH AT BEDTIME 100 Capsule 3 04/01/2022 Active Dexcom G6 Air Saw Operator Device Use as directed . Supplied by BinWise, BravoSolution. [phone] Active Dexcom G6 Sensor Use as directed . Change every 10 days Supplied by Tango Publishing. [phone] Active Dexcom G6 Transmitter Use as directed . Change every 90 days Supplied by Enjoyor [facility] [employer], [facility]. [phone] Active rOPINIRole HCl 2 MG Oral [...] 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/31/2021 Atherosclerosis of [place] coronary arter 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 12/31/2021 [...] mRNA, LNP-s, No Pre serve, 2-Dose Series (Workiva) 12/29/2020,12/18/2020 COVID-19, LNP-s, No Preserve , Navarro-sucrose, Ages 12+ (Pfizer) 2022,10/01/2021 Pneumococcal Conjugate Vacci ne, 20-valent ([id number]) 03/12/2022 Pneumococcal Polysaccharide PPV23 (Pneumovax) 08/22/2009,06/15/2006 Seasonal [...] Encounters Date Type Specialty Care Team Description 07/23/2022 Home Visit [facility] Brooke Jose, RN [address] [place] [address] 07/26/2022 Office Visit Family Galdino Toscano, DO 293 [facility], [place] [address] 07/28/2022 Imaging Radiology 07/28/2022 PulmDiagnostic Pulmonary Function West, Pft [address] [facility] [place] [address] 08/04/2022 Office Visit Family Galdino Toscano, DO 293 [facility], [place] [address] 08/05/2022 Nurse Only Ancillary [place], Nurse Annual Wellness Visit [address] [place] [address] 08/25/2022 Office Visit Pulmonary Nikita Sanchez MD [address] [place] [address] 09/13/2022 Office Visit Family Galdino Toscano, DO 293 [place] [address] Scheduled Procedures Name Priority Associated Diagnoses Date/Ti [...] Additional history exists CKD PHOS USE SMARTSET 83979 01/07/202312/25, 03/12/2021, 11/17/2020, Additional history exists DIABETES-FOOT EXAM 01/07/2023 01/07/2022, 0 01/14/2021, 11/07/2019, Additional history exists TSH FOR THYROID MEDICATION MONITORING YEARLY 01/07/2023 01/07/2022, 12/25/2020, 05/06/2020, Additional history exists DIABETES-EYE EXAM 05/24/2023 05/24/2022, , 04/07/2020, Additional history exists CKD HGB USE SMARTSET 91493 06/29/202306/29, 06/29/2022, 01/07/2022, Additional history exists Depression [...] Documents on File Type Date Recorded Patient Tablet Coater Expl anation Advanced Directive Advanced Directive Advanced [...] Camp Other Health Care Hayden r of Crop Specialist Princess Allen Other Health Care Pow er of Crop Specialist Care Teams Infection Prevention Specialist Relationship Specialty Start Date End Date Galdino Andujar, DO [address] [place] [address] PCP - General Internal Medicine 01/07/22 documented as of this encounter
--- OUTSIDE RECORDS SUMMARY | 2023-06-01 04:29 | External Medical Summary | Summary of Care ---
Author Name Unknown Organization [place] [address] Care Team Providers Care Medical Coding Instructor Name Role Phone ZiaandrewsGaldino DO Primary Care Provider [phone] Reason for Visit * Reason Comments [facility]: Acute brad 1 Encounter Details Date Type Department Care Team Description 07/23/2022 Home Visit [facility], [facility] 132 [facility] [place] [address] Brooke Jose RN 132 [place] [address] Allergies Active Allergy Reactions Severity Noted Date [...] 90 Cap 3 12/18/2019 Active DIURETIC TITRATION PLANIndications:Memory Care Program Resident 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 1 Each 0 04/08/2020 Active Blood Glucose Monitoring Suppl (Stor NetworksUCH ULTRA 2) w/Device KIT Use to [...] 7.0%-8.0% ([facility]) Inject 40 units with meals + sliding scale 1 units for every 25 units BG > 150. 121 mL 3 11/04/2021 Active Tresiba FlexTouch 100 UNIT/ML Subcutaneous Solution Pen-injector (Insulin Degludec)Indications :Type 2 diabetes mellitus with hemoglobin A1c goal of 7.0%-8.0% ([facility]) Inject under the skin 60 Units in [...] % Nasal Solution Administer into nostril 1 [place] in the morning AND 1 [place] before bedtime. 30 mL 12 02/18/2022 Active Nortriptyline HCl 50 MG Oral Capsule (Pamelor)Indications :Fibromyalgia TAKE ONE CAPSULE BY MOUTH AT BEDTIME 100 Capsule 3 04/01/2022 Active Dexcom G6 Loom Cleaner Device Use as directed . Supplied by Erydel, EZ-Apps. [phone] Active Dexcom G6 Sensor Use as directed . Change every 10 days Supplied by Family Archival Solutions. [phone] Active Dexcom G6 Transmitter Use as directed . Change every 90 days Supplied by Tripwire [facility]. [phone] Active rOPINIRole HCl 2 MG Oral Tablet (Requip)Indications: Restless legs syndrome TAKE ONE TABLET BY MOUTH AT BEDTIME 100 Tablet 3 04/15/2022 Active metFORMIN HCl ER 500 MG Oral Tablet Extended Release 24 Hour (Glucophage XR)Indications:Type 2 diabetes mellitus with hemoglobin A1c goal of less than 8.0% ([facility]) Take by mouth 1 Tablet [...] reportedly running in the low 200s -Continue trulicNavera, Tresiba, metformin Heparin 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 [...] mRNA, LNP-s, No Pre serve, 2-Dose Series (Store Vantage) 12/29/2020,12/18/2020 COVID-19, LNP-s, No Preserve , Navarro-sucrose, Ages 12+ (Pfizer) 2022,10/01/2021 Pneumococcal Conjugate Vacci ne, 20-valent ([id number]) 03/12/2022 Pneumococcal Polysaccharide PPV23 (Pneumovax) 08/22/2009,06/15/2006 Seasonal [...] 07/23/2022 7:57 AM EDT [facility] Teaching Grades 9 Thru 12 TeacherTopper Packer Visit Date: 07/23/2022 Time: 7:57 AM Name: Stephanie Camp : 1955 Situation: brad 1 Background: [facility] Enrollment Date: 06/14/22 - Focused Care (3-9 months) PMHx: [place] filter, CHF, CHF, DVT, venous insufficiency, vasculitis, CAD, carotid stenosis, chronic hypoxemic respiratory failure, ELISSA, o2 dependent, GERD, DM, Hx PE, spinal stenosis Utilization: 07/16 - - [facility] Admission - falls, acute on chronic CHF, acute on chronic respiratory failure,cellulitis R hand d/t cat bite 08/04 and 08/25/22 - scheduled for cataract surgeries Assessment: D/c home from [facility] yesterday D/c paperwork in home - reviewed Pt has just moved into [facility] and has living room filled with boxes, [...] home Willing to get pill packs from [facility] TT sent to Shira Gross LPN requesting [...] status is at baseline. Gait: Gait abnormal. [facility]-10 Completed this Visit: Yes. [facility]-10: Reason Completed: Status post fall Status post ED visit/hospital admission [facility]-10 ([facility]) Fall Risk Assessment Tool Age 65+: Yes (07/23/22899) Diagnosis (3 or more co-existing): Yes (07/23/22899) Prior history of falls within 3 months: Yes (07/23/22899) Incontinence: Yes (07/23/22899) Visual impairment: Yes (07/23/22899) Environmental hazards: Yes (07/23/22899) Poly Pharmacy (4 or more prescriptions - any type): Yes (07/23/22899) Pain affecting level of function: Yes (07/23/22899) Cognitive impairment: No (07/23/22899) [facility]-10 Interventions: Fall education provided, reviewed/provided Fall brochure Treatment/Plan: 07/23/22 - working towards pill packs with [facility] Ambulate with roller walker at ALL times o2 2lnc at rest, 4Lnc with activity - [facility] [phone] WEAR O2 AT ALL TIMES OR BECOMES [...] for fluid overload-take only as advised DRY Ub=[id number] as of 07/22/22 - to weigh daily and record (has own scale) Has Dexcom 5 - follows with MTM, glucose monitor in home for backup Per ortho - not a candidate for knee surgery until loses weight Chronic back pain/sciatica - gets injections of SI joints LES referral to help locate PERS at [facility] or obtain replacement 07/23/22 Home Interventions Provided: [...] Increased sob Patient Needs to Remember: Call [facility] with red flags Referrals Needed: LES - assist with locating PERS at [facility], did not receive back from hospital Follow Up: Is there cellular connectivity/connectivity in the home? Yes Does the patient have internet in the home? Yes Patient encouraged to call the intake phone number for all urgent but not emergent issues. Scheduled to follow up with patient in one week - fill pill box and take meds to [facility]. Brooke Jose RN 07/23/2022 7:57 AM documented in this encounter Plan of Treatment Upcoming Encounters Date Type Specialty Care Team Description 07/26/2022 Office Visit Family Medicine Galdino Andujar, [facility] [address] 07/28/2022 Imaging Radiology 07/28/2022 PulmDiagnostic Pulmonary Function West, [address]ft [address] [place] [address] 07/30/2022 Home Visit [facility] Brooke Jose RN [address] [facility] [place] [address] 08/04/2022 Office Visit Family Medicine Galdino Andujar DO [address] [facility] [address] 08/05/2022 Nurse Only Ancillary [employer], Nurse Annual Wellness Visit [address] [facility] [address] 08/25/2022 Office Visit Pulmonary Nikita Sanchez MD [address] [place] [id number] 09/13/2022 Office Visit Family Medicine Galdino Andujar, DO 293 [facility] [place] [address] Scheduled Procedures Name Priority Associated Diagnoses Date/Ti [...] Additional history exists CKD PHOS USE SMARTSET 64421 01/07/202312/25, 03/12/2021, 11/17/2020, Additional history exists DIABETES-FOOT EXAM 01/07/2023 01/07/2022, 0 01/14/2021, 11/07/2019, Additional history exists TSH FOR THYROID MEDICATION MONITORING YEARLY 01/07/2023 01/07/2022, 12/25/2020, 05/06/2020, Additional history exists DIABETES-EYE EXAM 05/24/2023 05/24/2022, , 04/07/2020, Additional history exists CKD HGB USE SMARTSET 89336 06/29/202306/29, 06/29/2022, 01/07/2022, Additional history exists Depression [...] on File Type Date Recorded Patient Supervisor Quilting Expl anation Advanced Directive Advanced Directive Advanced [...] Camp Other Health Care Hayden r of Gathering Worker Princess Other Health Care Pow er of Gathering Worker Care Teams Medical Coding Instructor Relationship Specialty Start Date End Date Galdino Andujar, DO 293 [facility] [place] [address] PCP - General Internal Medicine 01/07/22 documented as of this encounter"
--- OUTSIDE RECORDS SUMMARY | 2023-06-01 04:29 | External Medical Summary | Summary of Care ---
Author Name Unknown Organization [place] [address] Care Team Providers Care Regional Geodetic Advisor Name Role Phone Galdino Andujar DO Primary Care Provider [phone] Encounter Details Date Type Department Care Team Description 07/16/2022 Scan Encounter Family Practice [address] [facility] [place] [address] [place] [phone] Galdino Andujar DO [address] [place] [address] <No scans attached> Allergies Active Allergy Reactions Severity Noted Date Comments Codeine 07/08/2014 hallucination Pollen 05/18/2019 Heparin 09/04/2009 Heparin Induced Thrombocytopenia Hydrocodone Neuro complications (Please comment) 07/28/2020 Empagliflozin Other (Please comment) Medium 05/17/2018 3 yeast infections in 6 weeks after starting Morphine And Related 09/16/1997 Hallucinations Tetanus Toxoid Other (Please comment) 06/15/2011 Passed out documented as of this encounter (statuses as of 07/19/2022) Medications Medication Sig Dispensed Refills Start Date [...] 90 Cap 3 12/18/2019 Active DIURETIC TITRATION PLANIndications:Rewriter 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 1 Each 0 04/08/2020 Active Blood Glucose Monitoring Suppl (3D Industri.esUCH ULTRA 2) w/Device KIT Use to test [...] goal of 7.0%-8.0% ([facility]) Inject 40 units with meals + sliding scale 1 units for every 25 units BG > 150. 121 mL 3 11/04/2021 Active Tresiba FlexTouch 100 UNIT/ML Subcutaneous Solution Pen-injector (Insulin Degludec)Indications :Type 2 diabetes mellitus with hemoglobin A1c goal of 7.0%-8.0% ([facility]) Inject under the skin 60 Units in [...] % Nasal Solution Administer into nostril 1 [place] in the morning AND 1 [place] before bedtime. 30 mL 12 02/18/2022 Active Nortriptyline HCl 50 MG Oral Capsule (Pamelor)Indications :Fibromyalgia TAKE ONE CAPSULE BY MOUTH AT BEDTIME 100 Capsule 3 04/01/2022 Active Dexcom G6 Manager Software Device Use as directed . Supplied by Eatwave, ClearKarma. [phone] 0 Active Dexcom G6 Sensor Use as directed . Change every 10 days Supplied by OneLogin, Inc.. [phone] Active Dexcom G6 Transmitter Use as directed . Change every 90 days Supplied by Sawant OneWed (Formerly Nearlyweds) [facility] [employer], [facility]. [phone] Active rOPINIRole HCl 2 MG Oral Tablet (Requip)Indications: Restless legs syndrome TAKE ONE TABLET BY MOUTH AT BEDTIME 100 Tablet 3 04/15/2022 Active metFORMIN HCl ER 500 MG Oral Tablet Extended Release 24 Hour (Glucophage XR)Indications:Type 2 diabetes mellitus with hemoglobin A1c goal of less than 8.0% ([facility]) Take by mouth 1 Tablet in the [...] as of this encounter (statuses as of 07/19/2022) Active Problems Problem Noted Date Chronic kidney [...] 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/31/2021 Atherosclerosis of [place] coronary arter 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 12/31/2021 [...] as of this encounter (statuses as of 07/19/2022) Resolved Problems Problem Noted Date Resolved Date [...] as of this encounter (statuses as of 07/19/2022) Immunizations Name Administration Dates Next Due COVID-19 mRNA, LNP-s, No Pre serve, 2-Dose Series (Pfizer) 12/29/2020,12/18/2020 COVID-19, LNP-s, No Preserve , Navarro-sucrose, Ages 12+ (Pfizer) 2022,10/01/2021 Pneumococcal Conjugate Vacci ne, 20-valent ([id number]) 03/12/2022 Pneumococcal Polysaccharide PPV23 (Pneumovax) 08/22/2009,06/15/2006 Seasonal [...] Office Visit Dermatology Micki Hernández MD [address] [facility] [place] [address] 07/28/2022 Imaging Radiology 07/28/2022 PulmDiagnostic Pulmonary Function West, Pft [address] [place] [address] 08/04/2022 Office Visit Family Medicine Galdino Andujar, DO 293 [place] [address] 08/05/2022 Nurse Only [facility], Nurse Annual Wellness Visit [address] [facility] 293 [place] [address] 08/25/2022 Office Visit Pulmonary Nikita Sanchez MD [address] [place] [address] 09/13/2022 Office Visit Family Medicine Galdino Andujar, DO 293 [place] [address] Scheduled Procedures Name Priority Associated Diagnoses Date/Ti [...] Additional history exists CKD PHOS USE SMARTSET 03987 01/07/2023 0412/2021, 03/12/2021, 11/17/2020, Additional history exists DIABETES-FOOT EXAM 01/07/2023 01/07/2022, 0 01/14/2021, 11/07/2019, Additional history exists TSH FOR THYROID MEDICATION MONITORING YEARLY 01/07/2023 01/07/2022, 12/25/2020, 05/06/2020, Additional history exists DIABETES-EYE EXAM 05/24/2023 05/24/2022, , 04/07/2020, Additional history exists CKD HGB USE SMARTSET 53788 06/29/202306/29, 06/29/2022, 01/07/2022, Additional history exists Depression [...] Documents on File Type Date Recorded Patient Iron Carrier Expl anation Advanced Directive Advanced Directive Advanced [...] Camp Other Health Care Hayden r of Peer Support Specialist Princess Allen Other Health Care Pow er of Peer Support Specialist Care Teams Regional Geodetic Advisor Relationship Specialty Start Date End Date Galdino Andujar, DO [address] [place] [address] PCP - General Internal Medicine 01/07/22 documented as of this encounter
--- OUTSIDE RECORDS SUMMARY | 2023-06-01 04:29 | External Medical Summary | Summary of Care ---
Author Name Unknown Organization [place] [address] Care Team Providers Care Packing Shed Supervisor Name Role Phone Galdino Andujar DO Primary Care Provider [phone] Encounter Details Date Type Department Care Team Description 07/14/2022 Scan Encounter Family Practice 65 [facility] [place] [address] [place] [phone] Galdino Andujar DO [address] [place] [address] <No scans attached> Allergies Active Allergy Reactions [...] 90 Cap 3 12/18/2019 Active DIURETIC TITRATION PLANIndications:Lei Maker 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 1 Each 0 04/08/2020 Active Blood Glucose Monitoring Suppl (BettyvisionUCH ULTRA 2) w/Device KIT Use to test [...] mellitus with hemoglobin A1c goal of 7.0%-8.0% ([facility]) Inject 40 units with meals + sliding scale 1 units for every 25 units BG > 150. 121 mL 3 11/04/2021 Active Tresiba FlexTouch 100 UNIT/ML Subcutaneous Solution Pen-injector (Insulin Degludec)Indications :Type 2 diabetes mellitus with hemoglobin A1c goal of 7.0%-8.0% ([facility]) Inject under the skin 60 [...] % Nasal Solution Administer into nostril 1 [place] in the morning AND 1 [place] before bedtime. 30 mL 12 02/18/2022 Active Nortriptyline HCl 50 MG Oral Capsule (Pamelor)Indications :Fibromyalgia TAKE ONE CAPSULE BY MOUTH AT BEDTIME 100 Capsule 3 04/01/2022 Active Dexcom G6 Verse Writer Device Use as directed . Supplied by AutoShag, Outroop Inc.. [phone] 0 Active Dexcom G6 Sensor Use as directed . Change every 10 days Supplied by Fuhu[employer] ([employer]). [phone] Active Dexcom G6 Transmitter Use as directed . Change every 90 days Supplied by Sawant [facility] [place], [facility]. [phone] Active rOPINIRole HCl 2 MG Oral Tablet (Requip)Indications: Restless legs syndrome TAKE ONE TABLET BY MOUTH AT BEDTIME 100 Tablet 3 04/15/2022 Active metFORMIN HCl ER 500 MG Oral Tablet Extended Release 24 Hour (Glucophage XR)Indications:Type 2 diabetes mellitus with hemoglobin A1c goal of less than 8.0% ([facility]) Take by mouth 1 Tablet [...] thrombocytopenia (HIT) 0 12/31/2021 Atherosclerosis of [place] coronary arter 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 12/31/2021 [...] DM type 2, not at goal 05/29/2002 10/15/200 9 Overview: Modified per Diabetes protocol #14. [...] (Pfizer) 2022,10/01/2021 Pneumococcal Conjugate Vacci ne, 20-valent ([id number]) 03/12/2022 Pneumococcal Polysaccharide PPV23 (Pneumovax) 08/22/2009,06/15/2006 Seasonal [...] Encounters Date Type Specialty Care Team Description 07/15/2022 [facility] Visit [facility] Vera Capellan RN [address] [place] [address] 07/22/2022 Office Visit Dermatology Micki Hernández MD [address] [place] [address] 07/28/2022 Imaging Radiology 07/28/2022 PulmDiagnostic Pulmonary Function West, Pft [address] [facility] [place] [address] 08/04/2022 Office Visit Family Medicine Galdino Andujar, DO [address] [place] [address] 08/05/2022 Nurse Only [facility], Nurse Annual Wellness Visit [address] [place] [address] 08/25/2022 Office Visit Pulmonary Nikita Sanchez MD [address] [place] [address] 09/13/2022 Office Visit Family Medicine Galdino Andujar, DO [address] [place] [address] Scheduled Procedures Name Priority Associated Diagnoses Date/Ti [...] Additional history exists CKD PHOS USE SMARTSET 94184 01/07/2023 0412/2021, 03/12/2021, 11/17/2020, Additional history exists DIABETES-FOOT EXAM 01/07/2023 01/07/2022, 0 01/14/2021, 11/07/2019, Additional history exists TSH FOR THYROID MEDICATION MONITORING YEARLY 01/07/2023 01/07/2022, 12/25/2020, 05/06/2020, Additional history exists DIABETES-EYE EXAM 05/24/2023 05/24/2022, , 04/07/2020, Additional history exists CKD HGB USE SMARTSET 81798 06/29/202306/29, 06/29/2022, 01/07/2022, Additional history exists Depression [...] on File Type Date Recorded Patient Monorail Charger Operator Expl anation Advanced Directive Advanced Directive Advanced [...] Camp Other Health Care Hayden r of Pulley Maintainer Princess Allen Other Health Care Pow er of Pulley Maintainer Care Teams Packing Shed Supervisor Relationship Specialty Start Date End Date Sulman, Galdino A, DO [address] [place] [address] PCP - General Internal Medicine 01/07/22 documented as of this encounter
--- OUTSIDE RECORDS SUMMARY | 2023-06-01 04:29 | External Medical Summary | Summary of Care ---
Author Name Unknown Organization [place] [address] Care Team Providers Care Computer Builder Name Role Phone Galdino Andujar DO Primary Care Provider Encounter Details Date Type Department Care Team Description 07/15/2022 Scan Encounter Family Practice 65 [facility], [place] [address] [place] [id number] Galdino Andujar DO [address] [place] [address] <No scans attached> Allergies Active Allergy Reactions [...] 90 Cap 3 12/18/2019 Active DIURETIC TITRATION PLANIndications:Free Lance Artist 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 1 Each 0 04/08/2020 Active Blood Glucose Monitoring Suppl (Blue RoosterUCH ULTRA 2) w/Device KIT Use to test [...] ([facility]) Inject under the skin 60 Units in [...] % Nasal Solution Administer into nostril 1 Newborn in the morning AND 1 Newborn before bedtime. 30 mL 12 02/18/2022 Active Nortriptyline HCl 50 MG Oral Capsule (Pamelor)Indications :Fibromyalgia TAKE ONE CAPSULE BY MOUTH AT BEDTIME 100 Capsule 3 04/01/2022 Active Dexcom G6 Welder Experimental Device Use as directed . Supplied by [employer] [phone] Active Dexcom G6 Sensor Use as directed . Change every 10 days Supplied by [employer]. [phone] Active Dexcom G6 Transmitter Use as directed . Change every 90 days Supplied by Sawant [employer] [facility] [place], [facility]. [phone] Active rOPINIRole HCl 2 MG Oral Tablet (Requip)Indications: Restless legs syndrome TAKE ONE TABLET BY MOUTH AT BEDTIME 100 Tablet 3 04/15/2022 Active metFORMIN HCl ER 500 MG Oral Tablet Extended Release 24 Hour (Glucophage XR)Indications:Type 2 diabetes mellitus with hemoglobin A1c goal of less than 8.0% ([facility]) Take by mouth 1 Tablet in the [...] 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/31/2021 Atherosclerosis of s[place] coronary arter 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 12/31/2021 [...] (Pfizer) 2022,10/01/2021 Pneumococcal Conjugate Vacci ne, 20-valent ([id number]) 03/12/2022 Pneumococcal Polysaccharide PPV23 (Pneumovax) 08/22/2009,06/15/2006 Seasonal [...] Team Description 07/16/2022 Scheduled Telephone [facility] [employer], [place] [address] [facility] [place] [address] 07/22/2022 Office Visit Dermatology Micki Hernández MD [address] [place] [address] 07/28/2022 Imaging Radiology 07/28/2022 PulmDiagnostic Pulmonary Function [place], [address] [facility] [place] [address] 08/04/2022 Office Visit Family Medicine Galdino Andujar, DO [address] [place] [address] 08/05/2022 Nurse Only [facility], Nurse Annual Wellness Visit [address] [place] [address] 08/25/2022 Office Visit Pulmonary Nikita Sanchez MD [address] [place] [address] 09/13/2022 Office Visit Family Medicine Galdino Andujar, DO [address] [place] [address] Scheduled Procedures Name Priority Associated Diagnoses Date/Ti [...] Additional history exists CKD PHOS USE SMARTSET 68837 01/07/2023 04/12/2021, 03/12/2021, 11/17/2020, Additional history exists DIABETES-FOOT EXAM 01/07/2023 01/07/2022, 0 01/14/2021, 11/07/2019, Additional history exists TSH FOR THYROID MEDICATION MONITORING YEARLY 01/07/2023 01/07/2022, 12/25/2020, 05/06/2020, Additional history exists DIABETES-EYE EXAM 05/24/2023 05/24/2022, , 04/07/2020, Additional history exists CKD HGB USE SMARTSET 78135 06/29/202306/29, 06/29/2022, 01/07/2022, Additional history exists Depression [...] Documents on File Type Date Recorded Patient Environmental Program Manager Expl anation Advanced Directive Advanced Directive Advanced [...] Camp Other Health Care Hayden r of Fruit Distributor Princess Allen Other Health Care Pow er of Fruit Distributor Care Teams Computer Builder Relationship Specialty Start Date End Date Sulman, Galdino A, DO [address] [place] [address] PCP - General Internal Medicine 01/07/22 documented as of this encounter
--- OUTSIDE RECORDS SUMMARY | 2023-06-01 04:30 | External Medical Summary ---
Author Name Unknown Address Unknown Organization [id number]:[facility] [address] [place] [address] Laboratory Report Ordering Provider Test Date Status JAG SHULTZ 06/29/2022 08:13:00 Final Observation Date Value Abnormality Reference (Units ) Status SYNC LEUKOCYTES IN BLOOD BY AUTOMATED COUNT 06/29/2022 08:13:00 12.26 Above high normal 4.00-10.80 (K/uL) Final Segs 06/29/2022 08:13:00 71.3 40.0-75.0 (%) Final Lymphs % 06/29/2022 08:13:00 17.9 Below low normal 18.0-42.0 (%) Final Monos 06/29/2022 08:13:00 6.0 1.0-11.0 (%) Final Eosinophils 06/29/2022 08:13:00 4.2 0.0-6.0 (%) Final Basos 06/29/2022 08:13:00 0.6 0.0-2.0 (%) Final Absolute Segs 06/29/2022 08:13:00 8.74 Above high normal 1.80-7.70 (K/uL) Final Lymphs, absolute 06/29/2022 08:13:00 2.19 1.00-4.80 (K/ul) Final Monos, Abs 06/29/2022 08:13:00 0.74 0.00-1.10 (K/uL) Final Eos, Abs 06/29/2022 08:13:00 0.52 0.00-0.70 (K/uL) Final Basos, Abs 06/29/2022 08:13:00 0.07 0.00-0.20 (K/uL) Final Performing Location [facility] [address] [place] [address]
--- OUTSIDE RECORDS SUMMARY | 2023-06-01 04:30 | External Medical Summary | Summary of Care ---
Author Name Unknown Organization [place] [address] Care Team Providers Care Flight Radio Officer Name Role Phone Galdino Andujar DO Primary Care Provider [phone] Reason for Visit * Reason Onset Date Comments Scheduling 06/23/2022 Encounter Details Date Type Department Care Team Description 06/23/2022 Telephone Family Practice 65 [facility] [place] [address] [place] [address] Galdino Andujar DO [address] [place] [address] Scheduling Allergies Active Allergy Reactions Severity Noted Date Comments Codeine 07/08/2014 hallucination Pollen 05/18/2019 Heparin 09/04/2009 Heparin Induced Thrombocytopenia Hydrocodone Neuro complications (Please comment) 07/28/2020 Empagliflozin Other (Please comment) Medium 05/17/2018 3 yeast infections in 6 weeks after starting Morphine And Related 09/16/1997 Hallucinations Tetanus Toxoid Other (Please comment) 06/15/2011 Passed out documented as of this encounter (statuses as of 06/23/2022) Medications Medication Sig Dispensed Refills Start Date [...] 90 Cap 3 12/18/2019 Active DIURETIC TITRATION PLANIndications:In School Suspension Aide 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 1 Each 0 04/08/2020 Active Blood Glucose Monitoring Suppl (Inari MedicalUCH ULTRA 2) w/Device KIT Use to test [...] times daily 500 Each 3 11/04/2021 Active Swag Of The Monthuch Ultra Blue In Vitro Strip (Glucose Blood) [...] goal of 7.0%-8.0% ([facility]) Inject 40 units with meals + sliding scale 1 units for every 25 units BG > 150. 121 mL 3 11/04/2021 Active Tresiba FlexTouch 100 UNIT/ML Subcutaneous Solution Pen-injector (Insulin Degludec)Indications :Type 2 diabetes mellitus with hemoglobin A1c goal of 7.0%-8.0% ([facility]) Inject under the skin 60 Units in [...] before bedtime. 200 Capsule 3 01/19/2022 Active DULoxetine HCl 30 MG Oral Capsule Delayed Release Particles (Cymbalta) TAKE ONE CAPSULE BY MOUTH ONE TIME DAILY. TAKE WITH 60 MG CAPSULE FOR A TOTAL OF 90 MG 100 Capsule 0 02/18/2022 Active Ventolin HFA 108 (90 Base) MCG/ACT Inhalation Aerosol Solution Inhale by mouth 2 Puffs every 4 hours as needed for Cough, Shortness of Breath or Wheezing. 18 g 3 02/18/2022 Active Additional Information Patient not taking. Reported on 06/21/2022 Azelastine HCl 0.1 % Nasal Solution Administer into nostril 1 Chase in the morning AND 1 Chase before bedtime. 30 mL 12 02/18/2022 Active Nortriptyline HCl 50 MG Oral Capsule (Pamelor)Indications :Fibromyalgia TAKE ONE CAPSULE BY MOUTH AT BEDTIME 100 Capsule 3 04/01/2022 Active Dexcom G6 Estimating Manager Device Use as directed . Supplied by [employer] [facility], [facility]. [phone] 0 Active Dexcom G6 Sensor Use as directed . Change every 10 days Supplied by [employer] [facility], [facility]. [phone] Active Dexcom G6 Transmitter Use as directed . Change every 90 days Supplied by [employer] [facility], [facility]. [phone] Active rOPINIRole HCl 2 MG Oral Tablet (Requip)Indications: Restless legs syndrome TAKE ONE TABLET BY MOUTH AT BEDTIME 100 Tablet 3 04/15/2022 Active clonazePAM 0.5 MG Oral Tablet (KlonoPIN)Indication s:Anxiety state Take by mouth 1 Tablet in the morning AND 1 Tablet before bedtime. 60 Tablet 0 05/12/2022 Active metFORMIN HCl ER 500 MG Oral Tablet Extended Release 24 Hour (Glucophage XR)Indications:Type 2 diabetes mellitus with hemoglobin A1c goal of less than 8.0% ([facility]) Take by mouth 1 Tablet in the [...] before bedtime. 200 Capsule 3 06/18/2022 Active Hospital, Clinic, or Other Facility Administered Medication Ordered Dose Route Frequency Start Date End Date Status Albuterol Sulfate (Proventil) (2.5 MG/3ML) 0.083% inhalation solution 2.5 mgIndications:Chronic hypoxemic respiratory failure (HCC) 2.5 mg NEBULIZER Q4H PRN 10/08/2021 Active documented as of this encounter (statuses as of 06/23/2022) Active Problems Problem Noted Date Encounter for long-term (current) use of other medications 01/07/2022 Overview: Dr Andujar Type 2 diabetes mellitus with stage 3b c hronic kidney disease 01/07/2022 Type 2 diabetes mellitus with hemoglobin A1c goal of less than 8.0% 01/07/2022 Recurrent deep vein thrombosis (DVT) of both lower extremities 01/07/2022 Chronic hypoxemic respiratory failure Type 2 diabetes mellitus with diabetic c hronic kidney disease 12/31/2021 Heparin 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/31/2021 Atherosclerosis of teller coronary arter 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 12/31/2021 Carotid artery stenosis, asymptomatic, r ight 12/31/2021 Leukocytoclastic vasculitis 12/31/2021 Spinal stenosis of lumbar region without neurogenic claudication 07/15/2020 Primary osteoarthritis of left knee 10/28 Hyperparathyroidism, secondary renal 08/2020 Vasculitis 11/07/2019 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, NYHA class 1 and CKD stage 3 05/14/2019 Lumbar radiculopathy 09/27/2018 Mild episode of recurrent major depressi ve disorder 08/26/2018 Chronic diastolic congestive heart failu re 06/12/2018 Controlled substance agreement signed Morbid obesity with BMI of 50.0-59.9, ad ult 06/27/2017 Overview: Per Obesity protocol #1 - Per Obesity Taxonomy ICD-10 update of inactive term Gastroesophageal reflux disease with eso phagitis 03/04/2017 Restless legs syndrome 03/25/2016 Fibromyalgia 02/02/2016 Abnormality of gait 02/02/[address] [address] 08/19/2014 History of pulmonary embolus (PE) 2013 Statin intolerance 07/16/2014 Essential hypertension with goal blood p ressure less than 140/90 02/22/2014 Venous insufficiency 02/07/2013 ELISSA (obstructive sleep apnea) 09/16/2011 Overview: CPAP 11 cwp Mild, AHI 11.3 but with significant nocturnal hypoxemia Dicks Postsurgical hypothyroidism 06/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 documented as of this encounter (statuses as of 06/23/2022) Resolved Problems Problem Noted Date Resolved Date [...] failure, acute 09/14/200902/15 Spontaneous pneumothorax 09/14/2009 017 Dysuria 08/23/2009 02/15/2017 History of heparin-induced thrombocytopenia [...] as of this encounter (statuses as of 06/23/2022) Immunizations Name Administration Dates Next Due COVID-19 mRNA, LNP-s, No Pre serve, 2-Dose Series (Virtual Computer) 12/29/2020,12/18/2020 COVID-19, LNP-s, No Preserve , Navarro-sucrose, Ages 12+ (Pfizer) 2022,10/01/2021 Pneumococcal Conjugate Vacci ne, 20-valent ([id number]) 03/12/2022 Pneumococcal Polysaccharide PPV23 (Pneumovax) 08/22/2009,06/15/2006 Seasonal [...] encounter Miscellaneous Notes * Telephone Encounter - Jane Wood RPh - 06/23/2022 9:10 AM EDT Noted. Will follow up at next mtm appointment. Jane Wood PharmD Clinical Pharmacist Medication Therapy Disease Management 06/23/2022, 9:10 AM * Telephone Encounter - ELISSA Whitten - 06/23/2022 8:53 AM EDT Pt called to reschedule pharm appt because of vertigo. I rescheduled her for 06/28/22 1:40PM. Pt is aware and will comply. I asked if pt wanted to see doctor for vertigo today and pt declined. She said this is her usual vertigo and that she would take "a pill" and go to bed. She said it might be the change of weather. I told her I would send a msg to doctor so he knows how she's doing. documented in this encounter Plan of Treatment Upcoming Encounters Date Type Specialty Care Team Description 06/28/2022 Office Visit [facility], Pharmacist 65 [facility] [address] [place] [address] 06/29/2022 Laboratory Laboratory Processing [facility] [place] Mobile Home Draw [address] [place] [address] 06/30/2022 [facility] [address] 07/02/2022 Office Visit [facility] Medicine Galdino Andujar, [address] [place] [address] 07/15/2022 Home Visit [facility] Vera Capellan RN [address] [place] [address] 07/22/2022 Office Visit Dermatology Micki Hernández MD [address] [place] [address], [place] [address] 07/28/2022 Imaging Radiology 07/28/2022 PulmDiagnostic Pulmonary Function [place], [address] [facility] [place] [address] 08/05/2022 Nurse Only [facility], Nurse Annual Wellness Visit [address] [place] [address] 08/25/2022 Office Visit Pulmonary Nikita Sanchez MD [address] [place] [address] 09/13/2022 Office Visit Family Medicine Galdino Andujar, DO [address] [place] [address] Scheduled Procedures Name Priority Associated Diagnoses Date/Ti me COLONOSCOPY FLEXIBLE PROXIMAL DIAGNOSTIC Recall Colon cancer screening Health Maintenance Due Date Last Done Comments Cologuard: Ages 45-75 2000 FOBT: Ages 45-75 2000 Sigmoidoscopy: Ages 45-75 2000 COVID-19 Vaccine (5 - Booster) 06/08/2022 2022, 10/01/2021, 12/29/2020, Additional history exists DIABETES-HGBA1C EVERY 6 MONTHS 11/12/2022 05/12/2022, 01/07/2022, 11/17/2020, Additional history exists GFR - Renal Function 12/16/2022 06/18/2022, 05/12/2022, 01/07/2022, Additional history exists Alb / Creat Ratio 01/07/2023 01/07/2022, , 05/01/2018, Additional history exists CKD HGB USE SMARTSET 23314 01/07/202301/07, 01/07/2022, 12/26/2021, Additional history exists CKD PHOS USE SMARTSET 30660 01/07/202312/25, 03/12/2021, 11/17/2020, Additional history exists DIABETES-FOOT EXAM 01/07/2023 01/07/2022, 0 01/14/2021, 11/07/2019, Additional history exists TSH FOR THYROID MEDICATION MONITORING YEARLY 01/07/2023 01/07/2022, 12/25/2020, 05/06/2020, Additional history exists DIABETES-EYE EXAM 05/24/2023 05/24/2022, , 04/07/2020, Additional history exists Depression Screening, Annual for Pts 12 and Over 06/18/2023 06/18/2022, 06/12/2018 Mammogram 02/12/2024 02/11/2022, 01/0 02/2021, 07/10/2019, [...] Documents on File Type Date Recorded Patient Group Social Worker Expl anation Advanced Directive Advanced Directive Advanced [...] Other Health Care Hayden r of Bus Cleaner Princess Allen Other Health Care Pow er of Bus Cleaner Care Teams Flight Radio Officer Relationship Specialty Start Date End Date Galdino Andujar, DO [address] [place] [address] PCP - General Internal Medicine 01/07/22 documented as of this encounter
--- OUTSIDE RECORDS SUMMARY | 2023-06-01 04:30 | External Medical Summary ---
Author Name Unknown Address Unknown Organization [id number]:[facility] [place] [address] [place] [address] Laboratory Report Ordering Provider Test Date Status JAG SHULTZ 07/02/2022 15:11:42 Final Observation Date Value Abnormality Reference (Units ) Status 25-OH Vitamin D total 07/02/2022 15:11:42 29 >19 (ng/mL) Final Performing Location [facility] [place] [address] [place] [address]
--- OUTSIDE RECORDS SUMMARY | 2023-06-01 04:30 | External Medical Summary | Summary of Care ---
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)*; Fibromyalgia; Primary osteoarthritis of both knees; Anxiety state; Recurrent deep vein thrombosis (DVT) of both lower extremities (HCC); Chronic hypoxemic respiratory failure ([facility]); Postsurgical hypothyroidism; Type 2 diabetes mellitus with stage 3b chronic kidney disease, with long-term current use of insulin ([facility]); Restless legs syndrome; ELLIE (generalized anxiety disorder); Mild episode of recurrent major depressive disorder ([facility]); Advanced care planning/counseling discussion Allergies Active Allergy Reactions Severity Noted Date Comments Codeine 07/08/2014 hallucination Pollen 05/18/2019 Heparin 09/04/2009 Heparin Induced Thrombocytopenia Hydrocodone Neuro complications (Please comment) 07/28/2020 Empagliflozin Other (Please comment) Medium 05/17/2018 3 yeast infections in 6 weeks after starting Morphine And Related 09/16/1997 Hallucinations Tetanus Toxoid Other (Please comment) 06/15/2011 Passed out documented as of this encounter (statuses as of 07/01/2022) Medications Medication Sig Dispensed Refills Start Date [...] 0 04/08/2020 Active Blood Glucose Monitoring Suppl (Room 8 StudioTOUCH ULTRA 2) w/Device KIT Use to test [...] % Nasal Solution Administer into nostril 1 Labolt in the morning AND 1 Labolt before bedtime. 30 mL 12 02/18/2022 Active Nortriptyline HCl 50 MG Oral Capsule (Pamelor)Indication s:Fibromyalgia TAKE ONE CAPSULE BY MOUTH AT BEDTIME 100 Capsule 3 04/01/2022 Active Dexcom G6 Tdp Displays Analyst Device Use as directed . Supplied by [employer], [facility]. [phone] Active Dexcom G6 Sensor Use as directed . Change every 10 days Supplied by [employer] [facility], [facility]. [phone] Active Dexcom G6 Transmitter Use as directed . Change every 90 days Supplied by [employer] [facility], [facility]. [phone] Active rOPINIRole HCl 2 MG Oral Tablet (Requip)Indications :Restless legs syndrome TAKE ONE TABLET BY MOUTH AT BEDTIME 100 Tablet 3 04/15/2022 Active clonazePAM 0.5 MG Oral Tablet (KlonoPIN)Indicatio [...] 06/08/2022 Active Furosemide 40 MG Oral Tablet (Lasix)Indications: [...] 90 MG 100 Capsule 0 06/30/2022 Active DULoxetine HCl 30 MG Oral Capsule Delayed Release Particles (Cymbalta) TAKE ONE CAPSULE BY MOUTH ONE TIME DAILY. 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/31/2021 Atherosclerosis of [place] coronary arter 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 12/31/2021 [...] Requip Fibromyalgia 02/02/2016 Abnormality of gait 02/02/[address] 08/19/2014 History of pulmonary embolus (PE) 2013 Statin intolerance 07/16/2014 Essential hypertension with goal blood p ressure less than 140/90 02/22/2014 Venous insufficiency 02/07/2013 ELISSA (obstructive sleep apnea) 09/16/2011 Overview: CPAP 11 cwp Mild, AHI 11.3 but with significant nocturnal hypoxemia Dicks Postsurgical hypothyroidism 06/16/2011 Last Assessment & Plan: Continue synthroid ELLIE (generalized anxiety disorder) 09/13 Last Assessment & Plan: Sx controlled with Klonopin Dyslipidemia 09/04/2009 Overview: Per Lipid Taxonomy. documented as of this encounter (statuses as of 07/01/2022) Resolved Problems Problem Noted Date Resolved Date [...] as of this encounter (statuses as of 07/01/2022) Immunizations Name Administration Dates Next Due COVID-19 mRNA, LNP-s, No Pre serve, 2-Dose Series (Pfizer) 12/29/2020,12/18/2020 COVID-19, LNP-s, No Preserve , Navarro-sucrose, Ages 12+ (Pfizer) 2022,10/01/2021 Pneumococcal Conjugate Vacci ne, 20-valent ([id number]) 03/12/2022 Pneumococcal Polysaccharide PPV23 (Pneumovax) 08/22/2009,06/15/2006 Seasonal [...] Sign Reading Time Taken Comments Blood Pressure 102/72 06/30/2022 1:30 PM EDT Pulse 92 06/30/2022 1:30 PM EDT Temperature 36.7 C (98.1 F) 06/30/2022 1:30 PM ED T Respiratory Rate 18 06/30/2022 1:30 PM EDT Oxygen Saturation 94% 06/30/2022 1:30 PM EDT Inhaled Oxygen Concentration - - Weight - - Height - - Body Mass Index - - documented in this encounter Progress Notes * Simi Martinez PA-C - 06/30/2022 1:29 PM EDT Images from the original note were not included. 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 Weight down. Breathing baseline. Cr. baseline -continue increased dose of lasix Fibromyalgia Primary osteoarthritis of both knees Anxiety state Recurrent deep vein thrombosis (DVT) of both lower extremities (HCC) Assessment & Plan: Filter in place. On eliquis Chronic hypoxemic respiratory failure (HCC) Assessment & Plan: Typically on 2 L at rest, 4 L with exertion. Currently on 3 L O2 stable Postsurgical hypothyroidism Assessment & Plan: Continue synthroid Type 2 diabetes mellitus with stage 3b chronic kidney disease, with long-term current use of insulin (HCC) Assessment & Plan: Last hgba1c 7.6. BS reportedly running in the low 200s -Continue trulicity, Tresiba, metformin Restless legs syndrome Assessment & Plan: Sx controlled with Requip ELLIE (generalized anxiety disorder) Assessment & Plan: Sx controlled with Klonopin Mild episode of recurrent major depressive disorder (HCC) Assessment & Plan: Sx controlled with duloxetine, nortriptyline Advanced care planning/counseling discussion - Advance Care Plan Discussed/No Alternate Decision Maker Doc'd Additional Medical Decision Making: Wt 149 kg-down from 153 kg 3 weeks ago. Breathing close to baseline. On 3L O2. Doing well at home. Requested refill of duloxetine. Sent. F/u with PCP scheduled this Tuesday. Will follow for the next month. Consider graduation if stable Follow Up: Return in about 1 month (around 07/31/2022) for home. | For: home Scheduled appointments in the next 60 days: Future Appointments-next 60 days Date/Time Provider Specialty Dept Phone 07/02/2022 2:20 PM (Arrive by 2:05 PM) Galdino Andujar DO Family Medicine [phone] 07/15/2022 10:00 AM Vera Capellan RN [facility] [phone] 07/22/2022 9:15 AM (Arrive by 9:00 AM) Micki Hernández MD Dermatology [phone] 07/28/2022 1:30 PM [address] Radiology [phone] 07/28/2022 2:00 PM Pft Dorris Pulmonary Function [phone] 08/05/2022 3:00 PM Nurse Annual Wellness Visit [address] [place] [address] Ancillary [phone] 08/25/2022 3:40 PM (Arrive by 3:25 PM) Nikita Sanchez MD Pulmonary [phone] 09/13/2022 1:00 PM (Arrive by 12:45 PM) Galdino Andujar DO [facility] [phone] A total of 45 minutes was spent face to face (via video-based telemedicine if designated as a telemedicine visit) Subjective Subjective Is this a Telemedicine Visit? No, this is an Home Visit. Reason For [facility] Visit: Follow-Up Current Concerns: Stephanie Camp is a 67 year old female seen today for a [facility] provider visit. Today's concerns: -Breathing: Still c/o some congestion and cough. Asking to take mucinex, which was encouraged. No CP. Weight is down from hospital. Occasionally, gets dizzy with standing. No falls -UTI: Sx resolved. Finished ABX. No fever, hematuria, flank pain -Stressed out with moving in the next month -Appetite good. Does occasionally get diarrhea after eating, which has been going on for months. Noabd pain. No N/V. -Recent labs reviewed. Cr stable. Hgb stable. Mild leukocytosis, likely due to steroids. Additional Review of Systems All other systems reviewed and are negative. Objective Objective Vitals: 06/30/22 1330 Temp: 36.7 C (98.1 F) Pulse: 92 Resp: 18 SpO2: 94% BP: 102/72 Last Weights: Wt Readings from Last 3 Encounters: 06/21/22 (!) 153.8 kg (339 lb) 06/18/22 (!) 153.8 kg (339 lb 1.6 oz) 06/09/22 (!) 154.3 kg (340 lb 1.6 oz) Last BPs: BP Readings from Last 4 Encounters: 06/30/22 102/72 06/21/22 104/60 06/18/22 118/66 06/09/22 100/64 Physical Exam Constitutional: Appearance: She is obese. HENT: Head: Normocephalic. Mouth/Throat: Comments: Oral mucosa slightly dry Eyes: Extraocular Movements: Extraocular movements intact. Cardiovascular: Comments: RRR. No murmur Pulmonary: Effort: Pulmonary effort is normal. No respiratory distress. Breath sounds: Normal breath sounds. No wheezing or rales. Abdominal: General: Bowel sounds are normal. Palpations: Abdomen is soft. Musculoskeletal: Cervical back: Neck supple. Comments: +1 nonpitting edema in feet bilaterally Skin: General: Skin is warm and dry. Neurological: Mental Status: She is alert and oriented to person, place, and time. Mental status is at baseline. Psychiatric: Mood and Affect: Mood normal. Lab Review: I have reviewed the following results: BMP results Recent Labs Units 06/18/22 1521 05/12/22 1504 01/07/22 1156 SODIUM - [facility] mmol/L 137 137 139 POTASSIUM - [facility] mmol/L 4.9 4.4 4.6 CHLORIDE - [facility] mmol/L 97* 96* 98 CO2 - [facility] mmol/L 27 27 29 CREATININE - [facility] mg/dL 1.4* 1.3* 1.4* BUN - [facility] mg/dL 24* 21* 25* CBC results Recent Labs Units 06/29/22 0813 [...] A1C - [facility] % 7.6* 7.8* 8.3* Medication Review "Bottles Out" medication review performed today and medication list in EMR updated ACP: Full code Simi Martinez PA-C 1:29 PM *Communication sent to PCP (via [facility]ofax if [facility]), [facility] Care Team members,relevant Specialty Care Physicians* documented in this encounter Miscellaneous Notes * ACP (Advance Care Planning) - Simi Martinez PA-C - 07/01/2022 4:51 PM EDT Patient-centered Communication 07/01/2022 The patient/surrogate voluntarily agreed to participate in advance care planning discussion. They were advised that this is a separate service which may incur out of pocket cost in the form of copayment and/or deductibles. Location: Home Individual(s) present for conversation: Patient Decisions CPR decision: : Patient chooses CPR (01/12/2022 10:02 AM) Intubation/Mechanical Ventilation decision: : Patient chooses Intubation/mechanical ventilation (01/12/2022 10:02 AM) Non-invasive ventilation or BIPAP decision: : Patient chooses non-invasive ventilation. Select interventions below (01/12/2022 10:02 AM) Non-Invasive Ventilation Interventions:: Oxygen only; CPAP; BIPAP; NIV (01/12/2022 10:02 AM) Antibiotic therapy decision: : Patient chooses Antibiotic therapy (01/12/2022 10:02 AM) Artificial nutrition decision: : Patient chooses Artificial nutrition (01/12/2022 10:02 AM) IV hydration decision: : Patient chooses IV hydration (01/12/2022 10:02 AM) Blood transfusion decision: : Patient chooses Blood transfusion (01/12/2022 10:02 AM) Lab draw decision: : Patient chooses Lab draws (01/12/2022 10:02 AM) Additional Comments Discerning What Matters Most to the Patient: In their own words, patient's UNDERSTANDING of their illness is:: i have good days and bad days andlearn to live with the pain as much as I can. I have to watch what i eat and only cheat every now and then. DM, fibromyalgia is never going away (01/12/2022 9:59 AM) Their current SYMPTOMS include:: Pain; Tiredness; Drowsiness; Depression; Lack of appetite (01/12/2022 9:59 AM) They say their illness has CHANGED THEIR LIFE by: : Less enjoyment (quality of life); Feel like a burden to family/loved ones (01/12/2022 9:59 AM) The patient defines LIVING WELL as:: have energy to do house cleaning and laundry, maybe go on a shopping trip or go visit family (01/12/2022 9:59 AM) Source: Content from Respecting Choices Program Aligning Care With What Matters Most: Interventions/Choices:: CPR; Intubation/mechanical ventilation; Non-invasive ventilation or BIPAP; Antibiotic therapy; Artificial nutrition; IV hydration; Blood transfusion; Lab draws (01/12/2022 10:02 AM) Rationale for Decisions Their goals for Non-invasive ventilation or BIPAP treatment are: : if it is short term (01/12/2022 10:02 AM) Their goals for IV hydration treatment are: : short term only (01/12/2022 10:02 AM) Source: Content from [email or web address] Program 5 minutes spent in direct [id number] discussion today, Simi Martinez PA-C * Assessment & Plan Note - Simi Martinez PA-C - 07/01/2022 4:48 PM EDT Associated Problem(s): Mild episode of recurrent major depressive disorder (HCC) Sx controlled with duloxetine, nortriptyline * Assessment & Plan Note - Simi Martinez PA-C - 07/01/2022 4:48 PM EDT Associated Problem(s): ELLIE (generalized anxiety disorder) Sx controlled with Klonopin * Assessment & Plan Note - Simi Martinez PA-C - 07/01/2022 4:47 PM EDT Associated Problem(s): Restless legs syndrome Sx controlled with Requip * Assessment & Plan Note - Simi Martinez PA-C - 07/01/2022 4:45 PM EDT Associated Problem(s): Type 2 diabetes mellitus with diabetic chronic kidney disease (HCC) Last hgba1c 7.6. BS reportedly running in the low 200s -Continue trulicity, Tresiba, metformin * Assessment & Plan Note - Simi Martinez PA-C - 07/01/2022 4:44 PM EDT Associated Problem(s): Postsurgical hypothyroidism Continue synthroid * Assessment & Plan Note - Simi Martinez PA-C - 07/01/2022 4:44 PM EDT Associated Problem(s): Chronic hypoxemic respiratory failure (HCC) Typically on 2 L at rest, 4 L with exertion. Currently on 3 L O2 stable * Assessment & Plan Note - Simi Martinez PA-C - 07/01/2022 4:43 PM EDT Associated Problem(s): Recurrent deep vein thrombosis (DVT) of both lower extremities (HCC) Filter in place. 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 Weight down. Breathing baseline. Cr. baseline -continue increased dose of lasix documented in this encounter Plan of Treatment Upcoming Encounters Date Type Specialty Care Team Description 07/02/2022 Office Visit Family Medicine Galdino Andujar, DO [address] [place] [address] 07/15/2022 Home Visit [facility] Vera Capellan RN [address] [facility] [place] [address] 07/22/2022 Office Visit Dermatology Micki Hernández MD [address] [place] [address] 07/28/2022 Imaging Radiology 07/28/2022 PulmDiagnostic Pulmonary Function West, Pft [address] [place] [address] 08/05/2022 Nurse Only Ancillary College, Nurse Annual Wellness Visit [address] [place] [address] 08/25/2022 Office Visit Pulmonary Nikita Sanchez MD [address] [place] [id number] 09/13/2022 Office Visit Family Medicine Galdino Andujar, DO [address] [facility], [place] [address] Scheduled Procedures Name Priority Associated Diagnoses Date/Ti [...] Additional history exists CKD PHOS USE SMARTSET 33897 01/07/202312/25, 03/12/2021, 11/17/2020, Additional history exists DIABETES-FOOT EXAM 01/07/2023 01/07/2022, 0 01/14/2021, 11/07/2019, Additional history exists TSH FOR THYROID MEDICATION MONITORING YEARLY 01/07/2023 01/07/2022, 12/25/2020, 05/06/2020, Additional history exists DIABETES-EYE EXAM 05/24/2023 05/24/2022, , 04/07/2020, Additional history exists Depression Screening, Annual for Pts 12 and Over 06/18/2023 06/18/2022, 06/12/2018 CKD HGB USE SMARTSET 57559 06/29/202306/29, 06/29/2022, 01/07/2022, Additional history exists Mammogram [...] NYHA class 1 and CKD stage 3 (HCC)- Primary Fibromyalgia Mylagia and myositis, unspecified Primary osteoarthritis of both knees Primary localized osteoarthrosis, lower leg Anxiety state Anxiety state, unspecified Recurrent deep vein thrombosis (DVT) of both lower extremities (HCC) Chronic hypoxemic respiratory failure (HCC) Chronic respiratory failure 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 3b chronic kidney disease, with long-term current use of insulin (HCC) Restless legs syndrome Restless legs syndrome (RLS) ELLIE (generalized anxiety disorder) Generalized anxiety disorder Mild episode of recurrent major depressive disorder (HCC) Advanced care planning/counseling discussion Other specified counseling documented in this encounter Advance Directives Documents on File Type Date Recorded Patient Application Internship Expl anation Advanced Directive Advanced Directive Advanced [...] [place] Other Health Care Hayden r of Noc Engineer Princess Allen Other Health Care Pow er of Noc Engineer Care Teams Computer Forensics Analyst Relationship Specialty Start Date End Date Galdino Andujar, DO [address] [place] [address] PCP - General Internal Medicine 01/07/22 documented as of this encounter
--- OUTSIDE RECORDS SUMMARY | 2023-06-01 04:30 | External Medical Summary ---
Author Name Unknown Address Unknown Organization K01:[facility] [place] [address] [place] [address] Laboratory Report Ordering Provider Test Date Status JAG SHULTZ 07/02/2022 15:11:42 Final Observation Date Value Abnormality Reference (Units ) Status Vitamin B12 07/02/2022 15:11:42 392 232-1,24 5 (pg/mL) Final Performing Location [facility] - [address] [place] [address]
--- OUTSIDE RECORDS SUMMARY | 2023-06-01 04:30 | External Medical Summary | Summary of Care ---
Author Name Unknown Organization [place] [address] Care Team Providers Care Professor Of Marketing Name Role Phone Galdino Andujar DO Primary Care Provider [phone] Reason for Visit * Reason Onset Date Comments Advice 07/14/2022 cat Bite Encounter Details Date Type Department Care Team Description 07/14/2022 Telephone Family Practice [address] [facility] [place] [address] [place] [address] Galdino Andujar DO [address] [place], [place] [id number] Advice (cat Bite) Allergies Active Allergy Reactions Severity Noted Date Comments Codeine 07/08/2014 hallucination Pollen 05/18/2019 Heparin 09/04/2009 Heparin Induced Thrombocytopenia Hydrocodone Neuro complications (Please comment) 07/28/2020 Empagliflozin Other (Please comment) Medium 05/17/2018 3 yeast infections in 6 weeks after starting Morphine And Related 09/16/1997 Hallucinations Tetanus Toxoid Other (Please comment) 06/15/2011 Passed out documented as of this encounter (statuses as of 07/14/2022) Medications Medication Sig Dispensed Refills Start Date [...] 90 Cap 3 12/18/2019 Active DIURETIC TITRATION PLANIndications:Brand Marketing Specialist 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 1 Each 0 04/08/2020 Active Blood Glucose Monitoring Suppl (I3 PrecisionUCH ULTRA 2) w/Device KIT Use to test [...] times daily 500 Each 3 11/04/2021 Active Caixin MediaTouch Ultra Blue In Vitro Strip (Glucose Blood) [...] % Nasal Solution Administer into nostril 1 Mims in the morning AND 1 Mims before bedtime. 30 mL 12 02/18/2022 Active Nortriptyline HCl 50 MG Oral Capsule (Pamelor)Indications :Fibromyalgia TAKE ONE CAPSULE BY MOUTH AT BEDTIME 100 Capsule 3 04/01/2022 Active Dexcom G6 Software Administrator Device Use as directed . Supplied by [employer] [phone] Active Dexcom G6 Sensor Use as directed . Change every 10 days Supplied by [employer] [facility] barter.li, [facility]. [phone] 0 Active Dexcom G6 Transmitter Use as directed . Change every 90 days Supplied by [employer]. 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/31/2021 Atherosclerosis of [place] coronary arter y without angina pectoris 12/31/2021 [...] as of this encounter (statuses as of 07/14/2022) Resolved Problems Problem Noted Date Resolved Date [...] as of this encounter (statuses as of 07/14/2022) Immunizations Name Administration Dates Next Due COVID-19 mRNA, LNP-s, No Pre serve, 2-Dose Series ([employer]) 12/29/2020,12/18/2020 COVID-19, LNP-s, No Preserve , Navarro-sucrose, Ages 12+ (Pfizer) 2022,10/01/2021 Pneumococcal Conjugate Vacci ne, 20-valent ([id number]) 03/12/2022 Pneumococcal Polysaccharide PPV23 (Pneumovax) 08/22/2009,06/15/2006 Seasonal [...] - Shira De La Rosa RN - 07/14/2022 2:33 PM EDT Call to pt-states had gotten the cat bite 2 days ago. States she just fell in her kitchen-hit her head and her back and is very uncomfortable. States wasthinking of going to the ER-advised that would be best. Offered to call ambulance for her but states she had a relative there with her who will call the ambulance. Told to let them know about the catbite while she is there. Pt agreeable. * Telephone Encounter - ELISSA Snider - 07/14/2022 12:32 PM EDT Wonders if she can get something for her cat bite. Wasn't able to make appt yesterday Please call and advise documented in this encounter Plan of Treatment Upcoming Encounters Date Type Specialty Care Team Description 07/15/2022 Home Visit [facility] Vera Capellan RN [address] [place] [address] 07/22/2022 Office Visit Dermatology Micki Hernández MD [address] [facility] [place] [address] 07/28/2022 Imaging Radiology 07/28/2022 PulmDiagnostic Pulmonary Function West, Pft [address] [place] [address] 08/04/2022 Office Visit Family Medicine Galdino Andujar, DO [address] [place] [address] 08/05/2022 Nurse Only Ancillary [place], Nurse Annual Wellness Visit [address] [place] [address] 08/25/2022 Office Visit Pulmonary Nikita Sanchez MD [address] [place] [phone] 09/13/2022 Office Visit Family Medicine Galdino Andujar, DO [address] [facility], [place] [address] Scheduled Procedures Name Priority Associated Diagnoses Date/Ti [...] Additional history exists CKD PHOS USE SMARTSET 53791 01/07/202312/25, 03/12/2021, 11/17/2020, Additional history exists DIABETES-FOOT EXAM 01/07/2023 01/07/2022, 0 01/14/2021, 11/07/2019, Additional history exists TSH FOR THYROID MEDICATION MONITORING YEARLY 01/07/2023 01/07/2022, 12/25/2020, 05/06/2020, Additional history exists DIABETES-EYE EXAM 05/24/2023 05/24/2022, , 04/07/2020, Additional history exists CKD HGB USE SMARTSET 17156 06/29/202306/29, 06/29/2022, 01/07/2022, Additional history exists Depression [...] Documents on File Type Date Recorded Patient Coatings Inspector Expl anation Advanced Directive Advanced Directive Advanced [...] [place] Other Health Care Hayden r of Senior Net Software Developer Princess Allen Other Health Care Pow er of Senior Net Software Developer Care Teams Professor Of Marketing Relationship Specialty Start Date End Date Galdino Andujar, DO [address] [place] [address] PCP - General Internal Medicine 01/07/22 documented as of this encounter
--- OUTSIDE RECORDS SUMMARY | 2023-06-01 04:30 | External Medical Summary | Summary of Care ---
Author Name Unknown Organization [place] [address] Care Team Providers Care Supervisor Electronic Coils Name Role Phone Galdino Andujar DO Primary Care Provider [phone] Reason for Visit * Reason Onset Date Comments Test Results 07/05/2022 Encounter Details Date Type Department Care Team Description 07/05/20[address] [facility] [place] [address] [place] [address] Galdino Andujar DO [address] [place], [place] [id number] Test Results Allergies Active Allergy Reactions Severity Noted Date Comments Codeine 07/08/2014 hallucination Pollen 05/18/2019 Heparin 09/04/2009 Heparin Induced Thrombocytopenia Hydrocodone Neuro complications (Please comment) 07/28/2020 Empagliflozin Other (Please comment) Medium 05/17/2018 3 yeast infections in 6 weeks after starting Morphine And Related 09/16/1997 Hallucinations Tetanus Toxoid Other (Please comment) 06/15/2011 Passed out documented as of this encounter (statuses as of 07/05/2022) Medications Medication Sig Dispensed Refills Start Date [...] 90 Cap 3 12/18/2019 Active DIURETIC TITRATION PLANIndications: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 1 Each 0 04/08/2020 Active Blood Glucose Monitoring Suppl (Curious.comUCH ULTRA 2) w/Device KIT Use to test [...] 7.0%-8.0% ([facility]) Inject under the skin 60 Units [...] % Nasal Solution Administer into nostril 1 [place] in the morning AND 1 [place] before bedtime. 30 mL 12 02/18/2022 Active Nortriptyline HCl 50 MG Oral Capsule (Pamelor)Indications :Fibromyalgia TAKE ONE CAPSULE BY MOUTH AT BEDTIME 100 Capsule 3 04/01/2022 Active Dexcom G6 Grit Blaster Device Use as directed . Supplied by [employer]. [phone] 0 Active Dexcom G6 Sensor Use as directed . Change every 10 days Supplied by [employer]. [phone] Active Dexcom G6 Transmitter Use as directed . Change every 90 days Supplied by [employer]. 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 Atherosclerosis of [place] chin coronary arter y without angina pectoris 12/31/2021 [...] as of this encounter (statuses as of 07/05/2022) Resolved Problems Problem Noted Date Resolved Date [...] as of this encounter (statuses as of 07/05/2022) Immunizations Name Administration Dates Next Due COVID-19 mRNA, LNP-s, No Pre serve, 2-Dose Series ([employer]) 12/29/2020,12/18/2020 COVID-19, LNP-s, No Preserve , Navarro-sucrose, Ages 12+ (Pfizer) 2022,10/01/2021 Pneumococcal Conjugate Vacci ne, 20-valent ([id number]) 03/12/2022 Pneumococcal Polysaccharide PPV23 (Pneumovax) 08/22/2009,06/15/2006 Seasonal [...] Telephone Encounter - Galdino Andujar DO - 07/05/2022 8:52 PM EDT Noted * Telephone Encounter - Shira Gross LPN - 07/05/2022 5:14 PM EDT States she can not take a statin, unsure of what she has taken in the past. States she developed muscle aches. Thank you * Telephone Encounter - Shira Gross LPN - 07/05/2022 5:11 PM EDT ----- Message from Galdino Andujar DO sent at 07/05/2022 8:00 AM EDT ----- Labs are stable. Cholesterol is up. B 12 is normal See if patient was on statin in the past. documented in this encounter Plan of Treatment Upcoming Encounters Date Type Specialty Care Team Description 07/15/2022 Home Visit [facility] Vera Capellan RN [address] [place] [address] 07/22/2022 Office Visit Dermatology Micki Hernández MD [address] [facility] [place] [id number] 07/28/2022 Imaging Radiology 07/28/2022 PulmDiagnostic Pulmonary Function [place], [address] [address] [place] [address] 08/04/2022 Office Visit Family Medicine Galdino Andujar, DO [address] [facility] [place] [address] 08/05/2022 Nurse Only Ancillary [place], Nurse Annual Wellness Visit [address] [facility] [place] [address] 08/25/2022 Office Visit Pulmonary Nikita Sanchez MD [address] [place] [address] 09/13/2022 Office Visit Family Medicine Galdino Andujar, DO [address] [facility], [place] [address] Scheduled Procedures Name Priority Associated Diagnoses Date/Ti [...] Additional history exists CKD PHOS USE SMARTSET 76923 01/07/202312/25, 03/12/2021, 11/17/2020, Additional history exists DIABETES-FOOT EXAM 01/07/2023 01/07/2022, 0 01/14/2021, 11/07/2019, Additional history exists TSH FOR THYROID MEDICATION MONITORING YEARLY 01/07/2023 01/07/2022, 12/25/2020, 05/06/2020, Additional history exists DIABETES-EYE EXAM 05/24/2023 05/24/2022, , 04/07/2020, Additional history exists CKD HGB USE SMARTSET 16045 06/29/202306/29, 06/29/2022, 01/07/2022, Additional history exists Depression Screening, Annual for Pts 12 and Over 07/02/2023 07/02/2022, 06/12/2018 Mammogram 02/12/2024 02/11/2022, 01/02/2021, 07/10/2019, Additional [...] Documents on File Type Date Recorded Patient Drum Plater Expl anation Advanced Directive Advanced Directive Advanced [...] Camp Other Health Care Hayden r of Optimization Consultant Princess Allen Other Health Care Pow er of Optimization Consultant Care Teams Supervisor Electronic Coils Relationship Specialty Start Date End Date Galdino Andujar, DO [address] [facility] [place] [address] PCP - General Internal Medicine 01/07/22 documented as of this encounter
--- OUTSIDE RECORDS SUMMARY | 2023-06-01 04:30 | External Medical Summary ---
Author Name Unknown Address Unknown Organization [id number][facility] [address] [place] [address] Laboratory Report Ordering Provider Test Date Status JAG SHULTZ 06/29/2022 08:13:00 Final Observation Date Value Abnormality Reference (Units ) Status WBC, Total 06/29/2022 08:13:00 12.26 Above high normal 4 .00-10.80 (K/uL) Final RBC 06/29/2022 08:13:00 4.62 3.85-5.15 (M/uL) Final Hemoglobin 06/29/2022 08:13:00 13.9 12.0-15.3 (g/dL) Final HCT 06/29/2022 08:13:00 44.9 36.0-45.2 (%) Final MCV 06/29/2022 08:13:00 97.2 81.5-97.5 (fL) Final MCH 06/29/2022 08:13:00 30.1 27.0-34.0 (pg) Final MCHC 06/29/2022 08:13:00 31.0 32.0-36.0 (g/dL) Final RDW 06/29/2022 08:13:00 14.9 11.5-15.5 (%) Final Platelets 06/29/2022 08:13:00 343 140-400 (K /uL) Final MPV 06/29/2022 08:13:00 10.5 6.6-11.1 ( fL) Final Performing Location [facility] [place] [address] [place] [address]
--- OUTSIDE RECORDS SUMMARY | 2023-06-01 04:30 | External Medical Summary ---
Author Name Unknown Address Unknown Organization [id number]:[facility] - [address] [place] [address] Laboratory Report Ordering Provider Test Date Status JAG SHULTZ 07/02/2022 15:11:42 Final Observation Date Value Abnormality Reference (Units ) Status Triglyceride 07/02/2022 15:11:42 220 Above high normal <=174 (mg/dL) Final Performing Location [facility] - [address] [place] [address]
--- OUTSIDE RECORDS SUMMARY | 2023-06-01 04:30 | External Medical Summary ---
Author Name Unknown Address Unknown Organization [id number]:[facility] - [address] [place] [address] Laboratory Report Ordering Provider Test Date Status JAG SHULTZ 07/02/2022 15:11:42 Final Observation Date Value Abnormality Reference (Units ) Status Magnesium 07/02/2022 15:11:42 1.6 1.5-2.6 (m g/dL) Final Performing Location [facility] - [address] [place] [address]
--- OUTSIDE RECORDS SUMMARY | 2023-06-01 04:30 | External Medical Summary | Summary of Care ---
Author Name Unknown Organization [place] [address] Care Team Providers Care Engine Lathe Tender Name Role Phone Galdino Andujar DO Primary Care Provider [phone] Reason for Visit * Reason Comments Follow Up Encounter Details Date Type Department Care Team Description 07/02/2022 Office Visit Family Practice [address] [facility] [place] [address] [place] [id number] Galdino Andujar DO [address] [place] [address] 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, NYHA class 1 and CKD stage 3 ([facility])*; Type 2 diabetes mellitus with stage 3b chronic kidney disease, with long-term current use of insulin ([facility]); Atherosclerosis of paimiut coronary artery of paimiut heart without angina pectoris; Mild episode of recurrent major depressive disorder ([facility]); Recurrent deep vein thrombosis (DVT) of both lower extremities ([facility]); Dyslipidemia; Postsurgical hypothyroidism; ELLIE (generalized anxiety disorder); Statin intolerance; Abnormality of gait; Fibromyalgia; Gastroesophageal reflux disease with esophagitis without hemorrhage; Spinal stenosis of lumbar region without neurogenic claudication; Vitamin D deficiency; Thrush; Anxiety state Allergies Active Allergy Reactions Severity Noted Date Comments Codeine 07/08/2014 hallucination Pollen 05/18/2019 Heparin 09/04/2009 Heparin Induced Thrombocytopenia Hydrocodone Neuro complications (Please comment) 07/28/2020 Empagliflozin Other (Please comment) Medium 05/17/2018 3 yeast infections in 6 weeks after starting Morphine And Related 09/16/1997 Hallucinations Tetanus Toxoid Other (Please comment) 06/15/2011 Passed out documented as of this encounter (statuses as of 07/02/2022) Medications Medication Sig Dispensed Refills Start Date [...] 0 04/08/2020 Active Blood Glucose Monitoring Suppl (LumicellTOUCH ULTRA 2) w/Device KIT Use to test [...] % Nasal Solution Administer into nostril 1 [place] in the morning AND 1 [place] before bedtime. 30 mL 12 02/18/2022 Active Nortriptyline HCl 50 MG Oral Capsule (Pamelor)Indication s:Fibromyalgia TAKE ONE CAPSULE BY MOUTH AT BEDTIME 100 Capsule 3 04/01/2022 Active Dexcom G6 Track Car Operator Device Use as directed . Supplied by [employer]. [phone] 0 Active Dexcom G6 Sensor Use as directed . Change every 10 days Supplied by [employer]. [phone] 0 Active Dexcom G6 Transmitter Use as directed . Change every 90 days Supplied by [employer]. [phone] 0 Active rOPINIRole HCl 2 MG Oral [...] Active Clotrimazole 10 MG Mouth/Throat Valarie (Mycelex Valarie)Indications: Thrush Take by mouth 1 Lozenge 5 times a day for 14 days. Allow tablet to slowly dissolve in your mouth 70 Valarie 0 07/02/2022 07/16/20 Active clonazePAM 0.5 MG Oral Tablet (KlonoPIN)Indicatio ns:Anxiety state Take by mouth 1 Tablet in the morning AND 1 Tablet before bedtime. 60 Tablet 0 07/02/2022 Active clonazePAM 0.5 MG Oral Tablet (KlonoPIN)Indicatio ns:Anxiety state Take by mouth 1 Tablet in the morning AND 1 Tablet before bedtime. 60 Tablet 0 05/12/2022 07/02/20 Discontinu ed(Refill) Hospital, Clinic, or Other Facility Administered Medication Ordered Dose Route Frequency Start Date End Date Status Albuterol Sulfate (Proventil) (2.5 MG/3ML) 0.083% inhalation solution 2.5 mgIndications:Chronic hypoxemic respiratory failure (HCC) 2.5 mg NEBULIZER Q4H PRN 10/08/2021 Active documented as of this encounter (statuses as of 07/02/2022) Active Problems Problem Noted Date Encounter for [...] 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/31/2021 Atherosclerosis of paimiut coronary arter y without angina pectoris 12/31/2021 [...] Requip Fibromyalgia 02/02/2016 Abnormality of gait 02/02/[address] 08/19/2014 History of pulmonary [...] as of this encounter (statuses as of 07/02/2022) Resolved Problems Problem Noted Date Resolved Date [...] as of this encounter (statuses as of 07/02/2022) Immunizations Name Administration Dates Next Due COVID-19 mRNA, LNP-s, No Pre serve, 2-Dose Series ([employer]) 12/29/2020,12/18/2020 COVID-19, LNP-s, No Preserve , Navarro-sucrose, Ages 12+ (Pfizer) 2022,10/01/2021 Pneumococcal Conjugate Vacci ne, 20-valent ([id number]) 03/12/2022 Pneumococcal Polysaccharide PPV23 (Pneumovax) 08/22/2009,06/15/2006 Seasonal [...] Sign Reading Time Taken Comments Blood Pressure 102/50 07/02/2022 2:31 PM EDT Pulse 100 07/02/2022 2:31 PM EDT Temperature 36.2 C (97.2 F) 07/02/2022 2:31 PM ED T Respiratory Rate 14 07/02/2022 2:31 PM EDT Oxygen Saturation 94% 07/02/2022 2:31 PM EDT Inhaled Oxygen Concentration - - Weight 150.3 kg (331 lb 6.4 oz) 07/02/2022 2:31 PM EDT Height 165.1 cm (5' 5") 07/02/2022 2:31 PM EDT Body Mass Index 55.15 07/02/2022 2:31 PM EDT documented in this encounter Progress Notes * Galdino Andujar DO - 07/02/2022 2:57 PM EDT SUBJECTIVE: Stephanie Camp is a 67 year old female. Chief Complaint Patient presents with Follow Up HPI: Patient is a 67 year old female with a history of DM type II, CKD Stage III, Diastolic CHF, chronichypoxic respiratory failure, HTN, Recurrent DVT, IVC filter, Hyperlipidemia, statin intolerance, GERD, Lumbar Disc DIsease, restless leg syndrome, Sleep Apnea on CPAP, Heparin Induced thrombocytopenia, and Ambulatory Dysfunction that is seen for shortness of breath. The patient has chronic shortness of breath is stable. Furosemide was increased by Cardiology. weight is down. No chest pain is present. Chronic bilateral leg swelling is unchanged. The patient has pain with swallowing for a few weeks. Patient ambulates with a cane in the home but is in a wheelchair today. Patient Active Problem List Diagnosis Code Dyslipidemia E78.5 ELLIE (generalized anxiety disorder) F41.1 Postsurgical hypothyroidism E89.0 ELISSA (obstructive sleep apnea) G47.33 Venous insufficiency I87.2 Essential hypertension with goal blood pressure less than 140/90 I10 History of pulmonary embolus (PE) Z86.711 Statin intolerance Z78.[address] Z95.828 Fibromyalgia M79.7 Abnormality of gait R26.9 Restless legs syndrome G25.81 Gastroesophageal reflux disease with esophagitis K21.00 Morbid obesity with BMI of 50.0-59.9, adult ([facility]) E66.01, Z68.43 Controlled substance agreement signed Z79.899 Chronic diastolic congestive heart failure (HCC) I50.32 Mild episode of recurrent major depressive disorder ([facility]) F33.0 Lumbar radiculopathy M54.16 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, NYHA class 1 and CKD stage 3 ([facility]) I13.0, I50.30, N18.30 Hyperparathyroidism, secondary renal ([facility]) N25.81 Vasculitis ([facility]) I77.6 Primary osteoarthritis of left knee M17.12 Spinal stenosis of lumbar region without neurogenic claudication M48.061 Type 2 diabetes mellitus with diabetic chronic kidney disease ([facility]) E11.22 Heparin induced thrombocytopenia (HIT) D75.829 Atherosclerosis of paimiut coronary artery without angina pectoris I25.10 Carotid artery stenosis, asymptomatic, right I65.21 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 ONETOUCH DELICA LANCETS 33G MISC Check blood sugars 3-4 times daily 180 Each 5 oxygen GAS 2 lpm continuous ACCU-CHEK SOFTCLIX LANCETS MISC Test blood sugar three or four times daily as directed 400 Each3 omeprazole (PRILOSEC) 20 MG CPDR Take 1 Cap by mouth daily. 90 Cap 3 Blood Glucose Monitoring Suppl (Renovagen ULTRA 2) w/Device KIT Use to test BG values 1 Kit 0 Meclizine HCl 12.5 MG Oral Tablet (Antivert) [...] 100 UNIT/ML Subcutaneous Solution Pen-injector (Insulin Degludec) Inject under the skin 60 Units in the morning. 45 mL 3 Apixaban 5 MG Oral Tablet (Eliquis) Take by mouth 1 Tablet in the morning AND 1 Tablet before bedtime. 10mg twice a day x 7 days then 5mg twice a day . 180 Tablet 3 Gabapentin 300 MG Oral Capsule (Neurontin) Take by mouth 1 Capsule in the morning AND 1 Capsulebefore bedtime. 200 Capsule 3 Azelastine HCl 0.1 % Nasal Solution Administer into nostril 1 [place] in the morning AND 1 [place] before bedtime. 30 mL 12 Nortriptyline HCl 50 MG Oral Capsule (Pamelor) TAKE ONE CAPSULE BY MOUTH AT BEDTIME 100 Capsule3 rOPINIRole HCl 2 MG Oral Tablet (Requip) TAKE ONE TABLET BY MOUTH AT BEDTIME 100 Tablet 3 metFORMIN HCl ER 500 MG Oral Tablet Extended Release 24 Hour (Glucophage XR) Take by mouth 1 Tablet in the morning. 100 Tablet 1 traMADol HCl 50 MG Oral Tablet (Ultram) Take by mouth 1 Tablet every 8 hours as needed for Pain, Severe. 90 Tablet 0 DULoxetine HCl 60 MG Oral [...] 1 Tablet before bedtime. 100 Tablet 3 Furosemide 40 MG Oral Tablet (Lasix) Take by mouth 1 Tablet in the morning AND 1 Tablet before bedtime. 200 Tablet 3 Potassium Chloride ER 20 MEQ Oral Tablet Extended Release Take by mouth 1 Tablet in the morningAND 1 Tablet before bedtime. (Patient taking differently: Take by mouth 20 mEq daily . ) 200 Tablet 3 Magnesium Oxide 400 MG Oral Capsule Take by mouth 1 Capsule in the morning AND 1 Capsule beforebedtime. 200 Capsule 3 DULoxetine HCl 30 MG Oral Capsule Delayed Release Particles (Cymbalta) TAKE ONE CAPSULE BY MOUTH ONE TIME DAILY. TAKE WITH 60 MG CAPSULE FOR A TOTAL OF 90 MG 100 Capsule 0 Clotrimazole 10 MG Mouth/Throat Valarie (Mycelex Valarie) Take by mouth 1 Lozenge 5 times a day for 14 days. Allow tablet to slowly dissolve in your mouth 70 Valarie 0 clonazePAM 0.5 MG Oral Tablet (KlonoPIN) Take by mouth 1 Tablet in the morning AND 1 Tablet before bedtime. 60 Tablet 0 DIURETIC TITRATION PLAN If no improvement on day 3, contact heart failure managing provider. 1 Each 0 Acetaminophen 500 MG Oral Tablet (Acetaminophen Extra Strength) Take 500 mg by mouth every 6 hours as needed. Ventolin HFA 108 (90 Base) MCG/ACT Inhalation Aerosol Solution Inhale by mouth 2 Puffs every 4 hours as needed for Cough, Shortness of Breath or Wheezing. (Patient not taking: Reported on 06/21/2022 ) 18 g 3 Dexcom G6 Track Car Operator Device Use as directed . Supplied by [employer]. [phone] Dexcom G6 Sensor Use as directed . Change every 10 days Supplied by [employer]. [phone] Dexcom G6 Transmitter Use as directed . Change every 90 days Supplied by [employer]. 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.6) 09/14/2009 Recurrent deep vein thrombosis (DVT) of both lower extremities ([facility]) 01/07/2022 Sleep apnea, obstructive Spinal stenosis of lumbar region without neurogenic claudication 07/15/2020 Spontaneous pneumothorax 09/14/2009 Statin intolerance 07/16/2014 Type 2 diabetes mellitus with hemoglobin A1c goal of less than 8.0% ([facility]) 01/07/2022 Past Surgical History: Procedure Laterality Date ARTHROPLASTY KNEE TOTAL Right 07/24/14 R COLONOSCOPY, DIAGNOSTIC (RECTUM) 02/18/2016 normal, repeat 10 yrs/[facility] COLONOSCOPY, GI REFERRAL OP 01/28/06 diverticulosis--repeat 10 years INCISION OF [place], PLANNED 06/03/2011 TRACHEOSTOMY PLANNED performed [place] DANNY HOLDER [place] [facility] [place] DX/THER SUBSTANCE INTERLAMINAR LUMBAR/SACRAL W IMAGE GUIDE 05/26/2020 INJECTION SPINE LUMBAR OR SACRAL performed by Raj Ahn DO at OR [facility] INJECT DX/THER SUBSTANCE INTERLAMINAR LUMBAR/SACRAL W IMAGE GUIDE 05/14/2021 INJECTION SPINE LUMBAR OR SACRAL performed by Raj Ahn DO at OR [facility] INJECT DX/THER SUBSTANCE INTERLAMINAR LUMBAR/SACRAL W IMAGE GUIDE 08/13/2021 INJECTION SPINE LUMBAR OR SACRAL performed by Raj Ahn DO at OR [facility] KNEE ARTHROSCOPY/DEBRIDEMENT 07/[address] PERMANENT GASTROSTOMY TUBE 09/06/09 GASTROSTOMY WITH CONSTUCTION GASTRIC TUBE performed by AMADOU NUNEZ [place] [facility] REMOVAL OF THYROID GLAND 06/15/2011 THYROIDECTOMY INCLUDING SUBSTERNAL THYROID CERVICAL APPROACH performed by DANNY HOLDER [place] [facility] REMOVE GALLBLADDER 09/06/09 CHOLECYSTECTOMY performed by AMADOU NUNEZ at [place] [facility] REPAIR RECURRENT INCISIONAL HERNIA 1998 REVISION OF COLOSTOMY, SIMPLE 1998 SACROILIAC JOINT INJECT W/GUIDANCE 07/28/2020 INJECTION SACROILIAC JOINT performed by Raj Ahn DO at OR [facility] SACROILIAC JOINT INJECT W/GUIDANCE 03/03/2022 INJECTION SACROILIAC JOINT performed by Raj Ahn DO at OR [facility] SUTURE, LARGE INTESTINE W/COLOSTOMY 1996 perforation R colon with colostomy VENA CAVA FILTER/LIGATION/CLIP 08/19/09 Frank filter placement through the right femoral 08/19/[address] Lerma at [facility] Review of patient's allergies indicates: Allergen Reactions Jardiance [Empagliflozin] Other (Please comment) 3 yeast infections in 6 weeks after starting Codeine hallucination Hay Fever [Pollen] Heparin Heparin Induced Thrombocytopenia Hydrocodone Neuro complications (Please comment) Morphine And Related Hallucinations Tetanus Toxoid Other (Please comment) Passed out Review of Systems Constitutional: Positive for appetite change and fatigue. Negative for fever and unexpected weight change. HENT: Positive for sore throat and trouble swallowing. Negative for congestion. Respiratory: Positive for shortness of breath. Negative for cough and wheezing. Cardiovascular: Positive for leg swelling. Negative for chest pain and palpitations. Gastrointestinal: Negative for abdominal pain, blood in stool, constipation, nausea and vomiting. Genitourinary: Negative for dysuria and hematuria. Musculoskeletal: Positive for gait problem. Neurological: Negative for dizziness, syncope and headaches. Psychiatric/Behavioral: Negative for confusion, decreased concentration and sleep disturbance. OBJECTIVE: BP 102/50 (BP Site: Left Arm, BP Position: Sitting, BP Cuff Size: Large) | Pulse 100 | Temp 36.2 C (97.2 F) (Tympanic) | Resp 14 | Ht 1.651 m (5' 5") | Wt (!) 150.3 kg (331 lb 6.4 oz) | LMP 03/11/2003 | SpO2 94% | BMI 55.15 kg/m | BSA 2.63 m Physical Exam Vitals and nursing note reviewed. Constitutional: General: She is not in acute distress. Appearance: She is not toxic-appearing. HENT: Head: Normocephalic. [...] There is no abdominal tenderness. Musculoskeletal: Comments: Chronic right > left leg edema is stable Neurological: Mental Status: She is alert and oriented to person, place, and time. Mental status is at baseline. Gait: Gait abnormal. Psychiatric: Mood and Affect: Mood normal. Behavior: Behavior normal. PLAN AND ASSESSMENT: 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, NYHA class 1 and CKD stage 3 (HCC)(Primary) - BASIC METABOLIC PANEL; Future; Expected date: 07/02/2022 - MAGNESIUM; Future; Expected date: 07/02/2022 Continue Furosemide Type 2 diabetes mellitus with stage 3b chronic kidney disease, with long-term current use of insulin (HCC) - VITAMIN B12; Future; Expected date: 07/02/2022 Continue Trulicity, Metformin, Novolog, and Trisiba Atherosclerosis of paimiut coronary artery of paimiut heart without angina pectoris Mild episode of recurrent major depressive disorder (HCC) Continue Duloxetine Recurrent deep vein thrombosis (DVT) of both lower extremities (HCC) Continue Apixaban Dyslipidemia - LIPID PANEL WITH DIRECT LDL IF TG IS HIGH; Future; Expected date: 07/02/2022 Statin intolerant Postsurgical hypothyroidism Continue Levothyroxine Statin intolerance Abnormality of gait Fibromyalgia Gastroesophageal reflux disease with esophagitis without hemorrhage Spinal stenosis of lumbar region without neurogenic claudication Vitamin D deficiency - 25-HYDROXY VITAMIN D; Future; Expected date: 07/02/2022 Thrush - Clotrimazole 10 MG Mouth/Throat Valarie (Mycelex Valarie); Take by mouth 1 Lozenge 5 times a day for 14 days. Allow tablet to slowly dissolve in your mouth Anxiety state - clonazePAM 0.5 MG Oral Tablet (KlonoPIN); Take by mouth 1 Tablet in the morning AND 1 Tablet before bedtime. I have reviewed the patients controlled substance dispensing history in the Prescription Drug Monitoring Program in compliance with the [facility] regulations before prescribing a controlled substance. Follow Up: Return in about 1 month (around 08/02/2022), or if symptoms worsen or fail to improve. Galdino Andujar DO 2:59 PM 07/02/2022 documented in this encounter Nursing Notes * RT Tri (R) - 07/02/2022 3:12 PM EDT Labs drawn per order and sent to [facility] * Mariam Ray RN - 07/02/2022 2:29 PM EDT Pt is here for follow up visit. Pt would like to discuss RLE (red, itchy), pain in BLE and feet. documented in this encounter Plan of Treatment Upcoming Encounters Date Type Specialty Care Team Description 07/15/2022 Home Visit [facility] Vera Capellan RN [address] [place] [address] 07/22/2022 Office Visit Dermatology Micki Hernández MD [address] [place] [address] 07/28/2022 Imaging Radiology 07/28/2022 PulmDiagnostic Pulmonary Function [place], [address]ft [address] [facility] [place] [address] 08/04/2022 Office Visit Family Medicine Galdino Andujar, DO [address] [facility] [place] [address] 08/05/2022 Nurse Only Ancillary [place], Nurse Annual Wellness Visit [address] [place] [address] 08/25/2022 Office Visit Pulmonary Nikita Sanchez MD [address] [place] [address] 09/13/2022 Office Visit Family Medicine Galdino Andujar, DO [address] [facility] [place] [address] Scheduled Orders Name Type Priority Associated Diagnoses Orde r Schedule VITAMIN B12 Lab Routine Type 2 diabetes mellitus with stage 3b chronic kidney disease, with long-term current use of insulin (HCC) Expected: 07/02/2022 (Approximate), Expires: 07/02/2023 LIPID PANEL WITH DIRECT LDL IF TG IS HIGH Lab Routine Dyslipidemia Expected: 07/02/2022, Expires: 07/02/2023 25-HYDROXY VITAMIN D Lab Routine Vitamin D deficiency Expected: 07/02/2022 (Approximate), Expires: 07/02/2023 BASIC METABOLIC PANEL Lab Routine 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, NYHA class 1 and CKD stage 3 (HCC) Expected: 07/02/2022 (Approximate), Expires: 07/02/2023 MAGNESIUM Lab Routine 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, NYHA class 1 and CKD stage 3 (HCC) Expected: 07/02/2022 (Approximate), Expires: 07/02/2023 Scheduled Procedures Name Priority Associated Diagnoses Date/Ti [...] Additional history exists CKD PHOS USE SMARTSET 69884 01/07/2023 04/12/2021, 03/12/2021, 11/17/2020, Additional history exists DIABETES-FOOT EXAM 01/07/2023 01/07/2022, 0 01/14/2021, 11/07/2019, Additional history exists TSH FOR THYROID MEDICATION MONITORING YEARLY 01/07/2023 01/07/2022, 12/25/2020, 05/06/2020, Additional history exists DIABETES-EYE EXAM 05/24/2023 05/24/2022, , 04/07/2020, Additional history exists Depression Screening, Annual for Pts 12 and Over 06/18/2023 06/18/2022, 06/12/2018 CKD HGB USE SMARTSET 25648 06/29/202306/29, 06/29/2022, 01/07/2022, Additional history exists Mammogram [...] 1 and CKD stage 3 (HCC)- Primary Type 2 diabetes mellitus with stage 3b chronic kidney disease, with long-term current use of insulin (HCC) Atherosclerosis of paimiut coronary artery of paimiut heart without angina pectoris Mild episode of recurrent major depressive disorder (HCC) Recurrent deep vein thrombosis (DVT) of both lower extremities (HCC) Dyslipidemia Other and unspecified hyperlipidemia Postsurgical hypothyroidism ELLIE (generalized anxiety disorder) Generalized anxiety disorder Statin intolerance Other drug allergy Abnormality of gait Fibromyalgia Mylagia and myositis, unspecified Gastroesophageal reflux disease with esophagitis without hemorrhage Spinal stenosis of lumbar region without neurogenic claudication Spinal stenosis, lumbar region, without neurogenic claudication Vitamin D deficiency Unspecified vitamin D deficiency Thrush Candidiasis of mouth Anxiety state Anxiety state, unspecified documented in this encounter Advance Directives Documents on File Type Date Recorded 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
--- OUTSIDE RECORDS SUMMARY | 2023-06-01 04:30 | External Medical Summary ---
Author Name Unknown Address Unknown Organization K01:[facility] [place] - [address] [place] [address] Laboratory Report Ordering Provider Test Date Status LEIXIJAG 07/02/2022 15:11:42 Final Observation Date Value Abnormality Reference (Units ) Status BUN 07/02/2022 15:11:42 27 Above high normal 6-20 (mg/dL) Final Creatinine 07/02/2022 15:11:42 1.5 Above high normal 0.5-1.0 (mg/dL) Final Glomerular filtration rate/1.73 sq M.predicted [Volume Rate/Area] in Serum, Plasma or Blood by Creatinine-based formula (CKD-EPI) 07/02/2022 15:11:42 38 Below low normal >=60 (mL/min) Final Performing Location [facility] [place] - [address] [place] [address]
--- OUTSIDE RECORDS SUMMARY | 2023-06-01 04:31 | External Medical Summary | Summary of Care ---
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 Yes All sections of this form must be [...] on the next service day for the [facility] Home Phlebotomy does not service every geographical location on a daily basis. Contact [facility] Client Services at to find out service days for a specific location. Medical Laboratory Patient Name: Stephanie Camp : 1955 Sex: female Address [address] [facility] [address] Provider: None? Galdino Andujar DO? Diagnosis: Tests Requested CBCD Reason for Visit * Reason Onset Date Comments [facility]: Maintenance 06/21/2022 Encounter Details Date Type Department Care Team Description 06/21/2022 Telephone Family Practice [address] [facility] [place] [address] [place] [address] Galdino Andujar DO [address] [place] [address] [facility]: Maintenance Allergies Active Allergy Reactions Severity Noted Date Comments Codeine 07/08/2014 hallucination Pollen 05/18/2019 Heparin 09/04/2009 Heparin Induced Thrombocytopenia Hydrocodone Neuro complications (Please comment) 07/28/2020 Empagliflozin Other (Please comment) Medium 05/17/2018 3 yeast infections in 6 weeks after starting Morphine And Related 09/16/1997 Hallucinations Tetanus Toxoid Other (Please comment) 06/15/2011 Passed out documented as of this encounter (statuses as of 06/21/2022) Medications Medication Sig Dispensed Refills Start Date [...] 90 Cap 3 12/18/2019 Active DIURETIC TITRATION PLANIndications:Dry Pan Charger zahra diastolic congestive heart failure (HCC) If [...] 7.0%-8.0% ([facility]) Inject 40 units with meals + sliding scale 1 units for every 25 units BG > 150. 121 mL 3 11/04/2021 Active Tresiba FlexTouch 100 UNIT/ML Subcutaneous Solution Pen-injector (Insulin Degludec)Indications :Type 2 diabetes mellitus with hemoglobin A1c goal of 7.0%-8.0% ([facility]) Inject under the skin 60 [...] % Nasal Solution Administer into nostril 1 [place] in the morning AND 1 [place] before bedtime. 30 mL 12 02/18/2022 Active Nortriptyline HCl 50 MG Oral Capsule (Pamelor)Indications :Fibromyalgia TAKE ONE CAPSULE BY MOUTH AT BEDTIME 100 Capsule 3 04/01/2022 Active Dexcom G6 Tram Inspector Device Use as directed . Supplied by [employer]. [phone] 0 Active Dexcom G6 Sensor Use as directed . Change every 10 days Supplied by [employer]. [phone] 0 Active Dexcom G6 Transmitter Use as directed . Change every 90 days Supplied by [employer]. 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 Atherosclerosis of [place] coronary arter y without angina pectoris 12/31/2021 [...] 03/25/2016 Fibromyalgia 02/02/2016 Abnormality of gait 02/02/[address] [place] [address] 08/19/2014 History of pulmonary [...] as of this encounter (statuses as of 06/21/2022) Resolved Problems Problem Noted Date Resolved Date [...] as of this encounter (statuses as of 06/21/2022) Immunizations Name Administration Dates Next Due COVID-19 mRNA, LNP-s, No Pre serve, 2-Dose Series (Pfizer) 12/29/2020,12/18/2020 COVID-19, LNP-s, No Preserve , Navarro-sucrose, Ages 12+ (Pfizer) 2022,10/01/2021 Pneumococcal Conjugate Vacci ne, 20-valent ([id number]) 03/12/2022 Pneumococcal Polysaccharide PPV23 (Pneumovax) 08/22/2009,06/15/2006 Seasonal [...] Addendum Note - Shira Gross LPN - 06/21/2022 3:24 PM EDT Addended by: SHIRA GROSS on: 06/21/2022 03:24 PM Modules accepted: Orders * Telephone Encounter - Shira Gross LPN - 06/21/2022 3:23 PM EDT Patient is home bound, we can order home phleb. Thank you * Telephone Encounter - Demetra Berumen RN - 06/21/2022 3:19 PM EDT Patient does not have home visit with patient on 06/25. It was moved to earlier today. Does she havehomebound for labs? Demetra Berumen. RN [facility] chief business officer [phone] * Telephone Encounter - Shira Gross LPN - 06/21/2022 10:53 AM EDT Client services contacted this nurse and stated that CBC clotted. Can G@H redraw CBCD on 06/25 at time of visit? documented in this encounter Plan of Treatment Upcoming Encounters Date Type Specialty Care Team Description 06/23/2022 Office Visit [facility], Pharmacist [address] [facility] [address] [facility] [place] [place] [address] 06/30/2022 [facility] Visit [facility]C [address] [facility] [address] 07/02/2022 Office Visit Family Medicine Galdino Andujar, DO [address] [facility], [place] [address] 07/15/2022 Home Visit [facility]an [facility] [address] [facility] [place] [address] 07/22/2022 Office Visit Dermatology Micki Hernández MD [address] [place] [address] 07/28/2022 Imaging Radiology 07/28/2022 PulmDiagnostic Pulmonary Function [place], Pft [address] [facility] [place] [address] 08/05/2022 Nurse Only Ancillary [place], Nurse Annual Wellness Visit [address] [facility] [address] [facility] [place] [place] [address] 08/25/2022 Office Visit Pulmonary Nikita Sanchez MD [address] [place] [address] 09/13/2022 Office Visit Family Medicine Galdino Andujar, DO [address] [facility], [place] [address] Scheduled Procedures Name Priority Associated Diagnoses Date/Ti me COLONOSCOPY FLEXIBLE PROXIMAL DIAGNOSTIC Recall Colon cancer screening Scheduled Referrals Name Type Priority Associated Diagnoses Orde r Schedule HOME PHLEBOTOMY REFERRAL OP Referral Within 10 days (routine) 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, NYHA class 1 and CKD stage 3 (HCC) Chronic hypoxemic respiratory failure (HCC) ELISSA (obstructive sleep apnea) SOB (shortness of breath) Essential hypertension with goal blood pressure less than 140/90 Ordered: 06/21/2022 Health Maintenance Due Date Last Done Comments [...] Additional history exists CKD HGB USE SMARTSET 19347 01/07/202301/07, 01/07/2022, 12/26/2021, Additional history exists CKD PHOS USE SMARTSET 37034 01/07/2023 0412/2021, 03/12/2021, 11/17/2020, Additional history exists DIABETES-FOOT EXAM 01/07/2023 01/07/2022, 0 01/14/2021, 11/07/2019, Additional history exists TSH FOR THYROID MEDICATION MONITORING YEARLY 01/07/2023 01/07/2022, 12/25/2020, 05/06/2020, Additional history exists DIABETES-EYE EXAM 05/24/2023 05/24/2022, , 04/07/2020, Additional history exists Depression Screening, Annual for Pts 12 and Over 06/18/2023 06/18/2022, 06/12/2018 Mammogram 02/12/2024 02/11/2022, /0 02/2021, 07/10/2019, [...] 1 and CKD stage 3 (HCC)- Primary Chronic hypoxemic respiratory failure (HCC) Chronic respiratory failure ELISSA (obstructive sleep apnea) Obstructive sleep apnea (adult) (pediatric) SOB (shortness of breath) Shortness of breath Essential hypertension with goal blood pressure less than 140/90 documented in this encounter Advance Directives Documents on File Type Date Recorded Patient Fire Information Officer Expl anation Advanced Directive Advanced Directive Advanced [...] Camp Other Health Care Hayden r of Yarder Operator Princess Allen Other Health Care Pow er of Yarder Operator Care Teams Cnp Relationship Specialty Start Date End Date Galdino Andujar, DO [address] [place] [address] PCP - General Internal Medicine 01/07/22 documented as of this encounter
--- OUTSIDE RECORDS SUMMARY | 2023-06-01 04:31 | External Medical Summary | Summary of Care ---
Author Name Unknown Organization [place] [address] Care Team Providers Care Administrative Supervisor Name Role Phone Galdnio Andujar DO Primary Care Provider [phone] Reason for Visit * Reason Onset Date Comments Appointment 06/22/2022 lab work Encounter Details Date Type Department Care Team Description 06/22/2022 Telephone Family Practice [address] [facility] [place] [address] [place] [address] Galdino Andujar DO [address] [place], [place] [id number] Appointment (lab work) Allergies Active Allergy Reactions Severity Noted Date Comments Codeine 07/08/2014 hallucination Pollen 05/18/2019 Heparin 09/04/2009 Heparin Induced Thrombocytopenia Hydrocodone Neuro complications (Please comment) 07/28/2020 Empagliflozin Other (Please comment) Medium 05/17/2018 3 yeast infections in 6 weeks after starting Morphine And Related 09/16/1997 Hallucinations Tetanus Toxoid Other (Please comment) 06/15/2011 Passed out documented as of this encounter (statuses as of 06/22/2022) Medications Medication Sig Dispensed Refills Start Date [...] 90 Cap 3 12/18/2019 Active DIURETIC TITRATION PLANIndications:Music Engineer 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 1 Each 0 04/08/2020 Active Blood Glucose Monitoring Suppl (KnovelUCH ULTRA 2) w/Device KIT Use to test [...] times daily 500 Each 3 11/04/2021 Active ArstasisTouch Ultra Blue In Vitro Strip (Glucose Blood) [...] 7.0%-8.0% ([facility]) Inject under the skin 60 [...] % Nasal Solution Administer into nostril 1 [place] in the morning AND 1 [place] before bedtime. 30 mL 12 02/18/2022 Active Nortriptyline HCl 50 MG Oral Capsule (Pamelor)Indications :Fibromyalgia TAKE ONE CAPSULE BY MOUTH AT BEDTIME 100 Capsule 3 04/01/2022 Active Dexcom G6 Senior Controls Analyst Device Use as directed . Supplied by [employer] [facility], [facility]. [phone] 0 Active Dexcom G6 Sensor Use as directed . Change every 10 days Supplied by [facility], [facility]. [phone] 0 Active Dexcom G6 Transmitter Use as directed . Change every 90 days Supplied by [employer] [facility], [facility]. 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 Atherosclerosis of [place] coronary arter y without angina pectoris 12/31/2021 [...] 03/25/2016 Fibromyalgia 02/02/2016 Abnormality of gait 02/02/2016 Frank [...] as of this encounter (statuses as of 06/22/2022) Resolved Problems Problem Noted Date Resolved Date [...] as of this encounter (statuses as of 06/22/2022) Immunizations Name Administration Dates Next Due COVID-19 mRNA, LNP-s, No Pre serve, 2-Dose Series ([employer]) 12/29/2020,12/18/2020 COVID-19, LNP-s, No Preserve , Navarro-sucrose, Ages 12+ (Pfizer) 2022,10/01/2021 Pneumococcal Conjugate Vacci ne, 20-valent ([id number]) 03/12/2022 Pneumococcal Polysaccharide PPV23 (Pneumovax) 08/22/2009,06/15/2006 Seasonal [...] Telephone Encounter - Shira Gross LPN - 06/22/2022 12:45 PM EDT Noted. Thank you * Telephone Encounter - ELISSA Snider - 06/22/2022 10:51 AM EDT Received call from [facility] in regards to labs that were drawn Looks like they called about her CBC clotting Is coming in tomorrow to see Pharmacy. Please advise documented in this encounter Plan of Treatment Upcoming Encounters Date Type Specialty Care Team Description 06/23/2022 Office Visit [facility], Pharmacist [address] [place] [address] 06/29/2022 Laboratory Laboratory Processing [facility] Mobile Home Draw [address] [place] [address] 06/30/2022 Home Visit [facility] Simi Martinez PA-C [address] [place] [address] 07/02/2022 Office Visit [facility] Galdino Andujar, [address] [facility] [place] [address] 07/15/2022 Home Visit [facility] Vera Capellan RN [address] [place] [address] 07/22/2022 Office Visit Dermatology Micki Hernández MD [address] [place] [address] 07/28/2022 Imaging Radiology 07/28/2022 PulmDiagnostic Pulmonary Function West, Pft [address] [place] [address] 08/05/2022 Nurse Only [facility], Nurse Annual Wellness Visit [address] [place] [address] 08/25/2022 Office Visit Pulmonary Nikita Sanchez MD [address] [place] [address] 09/13/2022 Office Visit Family Medicine Galdino Andujar, DO [address] [facility] [place], [place] [address] Scheduled Procedures Name Priority Associated Diagnoses Date/Ti [...] Additional history exists CKD HGB USE SMARTSET 18777 01/07/202301/07, 01/07/2022, 12/26/2021, Additional history exists CKD PHOS USE SMARTSET 87484 01/07/2023 04/12/2021, 03/12/2021, 11/17/2020, Additional history exists DIABETES-FOOT EXAM 01/07/2023 01/07/2022, 0 01/14/2021, 11/07/2019, Additional history exists TSH FOR THYROID MEDICATION MONITORING YEARLY 01/07/2023 01/07/2022, 12/25/2020, 05/06/2020, Additional history exists DIABETES-EYE EXAM 05/24/2023 05/24/2022, , 04/07/2020, Additional history exists Depression Screening, Annual for Pts 12 and Over 06/18/2023 06/18/2022, 06/12/2018 Mammogram 02/12/2024 02/11/2022, 01/02/2021, 07/10/2019, Additional [...] on File Type Date Recorded Patient Dust Collector Attendant Expl anation Advanced Directive Advanced Directive Advanced [...] [place] Other Health Care Hayden r of [place] Operator Princess Allen Other Health Care Pow er of [place] Operator Care Teams Administrative Supervisor Relationship Specialty Start Date End Date Galdino Andujar, DO [address] [facility] [place] [address] PCP - General Internal Medicine 01/07/22 documented as of this encounter
--- OUTSIDE RECORDS SUMMARY | 2023-06-01 04:31 | External Medical Summary | Summary of Care ---
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, NYHA class 1 and CKD stage 3 (HCC) Abnormality of gait Lumbar radiculopathy Galdino Andujar DO [address] [place] [address] Referral ID Status Reason Start Date Expiration Date Visits Requested Visits Authorized Authorized Specialty Services Required 06/18/[phone] Question Answer Referral Priority Within 10 days (routine) * Evaluate & Treat - Unlimited Visits (Within 3 days (urgent)) - Authorized Specialty Diagnoses / Procedures Referred By Ethan chao Referred To Contact HOME CARE / [facility] Diagnoses 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 Yes Does patient have [facility] insurance? Yes Comments Is referral coming from Care Coordination and Integration? 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, NYHA class 1 and CKD stage 3 (HCC); Type 2 diabetes mellitus with stage 3b chronic kidney disease, with long-term current use of insulin (HCC); Recurrent deep vein thrombosis (DVT) of both lower extremities ([facility]); Chronic hypoxemic respiratory failure ([facility]); Dyslipidemia; Postsurgical hypothyroidism; Statin intolerance; Fibromyalgia; Gastroesophageal reflux disease with esophagitis without hemorrhage; Hyperparathyroidism, secondary renal (HCC); ELLIE (generalized anxiety disorder); ELISSA (obstructive sleep apnea); Abnormality of gait; Lumbar radiculopathy; Need for prophylactic vaccination and inoculation against influenza; Chronic diastolic congestive heart failure (HCC); Hospital discharge follow-up Allergies Active Allergy [...] sodium (STOOL SOFTENER) 100 MG Capsule Take 100 mg by mouth 2 times a day as needed for Constipation. 0 Active ONETOUCH DELICA LANCETS 33G MISC [...] 0 04/08/2020 Active Blood Glucose Monitoring Suppl (Stockdrift ULTRA 2) w/Device KIT Use to test [...] times daily 500 Each 3 11/04/2021 Active [employer] Ultra Blue In Vitro Strip (Glucose Blood) [...] or Wheezing. 18 g 3 02/18/2022 Active Azelastine HCl 0.1 % Nasal Solution Administer into nostril 1 [place] in the morning AND 1 [place] before bedtime. 30 mL 12 02/18/2022 Active Nortriptyline HCl 50 MG Oral Capsule (Pamelor)Indication s:Fibromyalgia TAKE ONE CAPSULE BY MOUTH AT BEDTIME 100 Capsule 3 04/01/2022 Active Dexcom G6 Pigment Pumper Device Use as directed . Supplied by [employer] [facility], [facility]. [phone] 0 Active Dexcom G6 Sensor Use as directed . Change every 10 days Supplied by [employer], [facility]. [phone] 0 Active Dexcom G6 Transmitter Use as directed . Change every 90 days Supplied by [employer] [facility]. [phone] Active rOPINIRole HCl 2 MG Oral [...] before bedtime. 200 Capsule 3 06/18/2022 Active Potassium Chloride Ayleen ER 10 MEQ Oral Tablet Extended Release Take 10 mEq by mouth every other day. 0 06/18/20 22 Discontinu ed(Medicat ion/Dose Changed) Furosemide 40 MG Oral Tablet (Lasix)Indications: Chronic diastolic congestive heart failure (HCC) Take by mouth 0.5 Tablets in the morning AND 0.5 Tablets before bedtime. May take an additional 20 mg 2 to 3 days per week as needed for worsening swelling. 135 Tablet 0 11/04/2021 06/18/20 Discontinu ed(Refill) Hospital, Clinic, or Other Facility [...] 03/25/2016 Fibromyalgia 02/02/2016 Abnormality of gait 02/02/[address] 08/19/2014 History of pulmonary [...] mRNA, LNP-s, No Pre serve, 2-Dose Series ([employer]) 12/29/2020,12/18/2020 COVID-19, LNP-s, No Preserve , Navarro-sucrose, Ages 12+ ([employer]) 2022,10/01/2021 Pneumococcal Conjugate Vacci ne, 20-valent (Iigoicm90) 03/12/2022 Pneumococcal Polysaccharide PPV23 (Pneumovax) 08/22/2009,06/15/2006 Seasonal [...] Sign Reading Time Taken Comments Blood Pressure 118/66 06/18/2022 2:01 PM EDT Pulse 90 06/18/2022 2:01 PM EDT Temperature 36.9 C (98.5 F) 06/18/2022 2:01 PM ED T Respiratory Rate - - Oxygen Saturation 93% 06/18/2022 2:01 PM EDT Inhaled Oxygen Concentration - - Weight 153.8 kg (339 lb 1.6 oz) 06/18/2022 2:01 PM EDT Height 165.1 cm (5' 5") 06/18/2022 2:01 PM EDT Body Mass Index 56.43 06/18/2022 2:01 PM EDT documented in this encounter Patient Instructions * Patient Instructions* Shira De La Rosa RN - 06/18/2022 2:00 PM EDT ~~PATIENT INSTRUCTIONS FOR FLU SHOT~~ Possible side effects of influenza vaccine, (flu shot), are usually mild and include: 1. Soreness or redness at injection site 2. Low grade fever 3. Body aches You may use Tylenol/Acetaminophen as needed for these symptoms. LET YOUR DOCTOR KNOW IMMEDIATELY IF YOU HAVE DIFFICULTY BREATHING OR SWALLOWING, EXPERIENCE ITCHINGOF FEET OR HANDS, HAVE SWELLING OF EYES, FACE OR INSIDE OF NOSE. documented in this encounter Progress Notes * Galdino Andujar DO - 06/18/2022 2:33 PM EDT SUBJECTIVE: Stephanie Camp is a 67 year old female. Chief Complaint Patient presents with Hospital Follow-Up Medication Administration Flu and/or Pneumo Inj Hospital Follow-Up Recent Admission: Patient [facility]. The date of discharge was 06/15/2022.Discharge report received and reviewed. HPI: Patient is a 67 year old female with a history of DM type II, CKD stage III, Diastolic CHF, chronichypoxic respiratory failure, HTN, Recurrent DVT, IVC filter, Hyperlipidemia, statin intolerance, GERD, Lumbar Disc Disease, Restless Leg Syndrome, Sleep Apnea on CPAP, Heparin induced Thrombocytopenia, and Ambulatory Dysfunction that is seen for hospital follow up. The patient was admitted to [facility] on 06/10/2022 to treat CHF, and UTI. The patient was treated with IV Furosemide. She was discharged on Furosemide 40 mg two times a day. The patient is not taking Furosemide as directed.Chronic shortness of breath has not improved. No chest pain is present. Appetite has decreased. Weight is down. Patient has difficulty with Ambulation. 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, NYHA class 1 and CKD stage 3 ([facility]) I13.0, I50.30, N18.30 Hyperparathyroidism, secondary renal ([facility]) N25.81 Vasculitis ([facility]) I77.6 Primary osteoarthritis of left knee M17.12 Spinal stenosis of lumbar region without neurogenic claudication M48.061 Type 2 diabetes mellitus with diabetic chronic kidney disease ([facility]) E11.22 Heparin induced thrombocytopenia (HIT) ([facility]) D75.82 Atherosclerosis of [place] coronary artery without angina pectoris I25.10 Carotid artery stenosis, asymptomatic, right I65.21 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 ONETOUCH DELICA LANCETS 33G MISC Check blood sugars 3-4 times daily 180 Each 5 oxygen GAS 2 lpm continuous ACCU-CHEK SOFTCLIX LANCETS MISC Test blood sugar three or four times daily as directed 400 Each3 omeprazole (PRILOSEC) 20 MG CPDR Take 1 Cap by mouth daily. 90 Cap 3 Blood Glucose Monitoring Suppl (ONETOUCH ULTRA 2) [...] AND 1 Capsulebefore bedtime. 200 Capsule 3 DULoxetine HCl 30 MG Oral Capsule Delayed Release Particles (Cymbalta) TAKE ONE CAPSULE BY MOUTH ONE TIME DAILY. TAKE WITH 60 MG CAPSULE FOR A TOTAL OF 90 MG 100 Capsule 0 Ventolin HFA 108 (90 Base) MCG/ACT Inhalation Aerosol Solution Inhale by mouth 2 Puffs every 4 hours as needed for Cough, Shortness of Breath or Wheezing. 18 g 3 Azelastine HCl 0.1 % Nasal Solution Administer into nostril 1 [place] in the morning AND 1 [place] before bedtime. 30 mL 12 Nortriptyline HCl 50 MG Oral Capsule (Pamelor) TAKE ONE CAPSULE BY MOUTH AT BEDTIME 100 Capsule3 Dexcom G6 Pigment Pumper Device Use as directed . Supplied by [employer]. [phone] [employer] G6 Sensor Use as directed . Change every 10 days Supplied by [employer]. [phone] [employer] G6 Transmitter Use as directed . Change every 90 days Supplied by [employer]. [phone] rOPINIRole HCl 2 MG Oral Tablet (Requip) TAKE ONE TABLET BY MOUTH AT BEDTIME 100 Tablet 3 clonazePAM 0.5 MG Oral Tablet (KlonoPIN) Take by mouth 1 Tablet in the morning AND 1 Tablet before bedtime. 60 Tablet 0 metFORMIN HCl ER 500 MG Oral Tablet [...] AND 1 Capsule beforebedtime. 200 Capsule 3 DIURETIC TITRATION PLAN If no improvement [...] Other (Please comment) Passed out OBJECTIVE: BP 118/66 | Pulse 90 | Temp 36.9 C (98.5 F) | Ht 1.651 m (5' 5") | Wt (!) 153.8 kg (339 lb 1.6 oz) | LMP 03/11/2003 | SpO2 93% | BMI 56.43 kg/m | BSA 2.66 m REVIEW OF SYSTEMS: Review of Systems [...] concentration and sleep disturbance. PHYSICAL EXAM: BP 118/66 | Pulse 90 | Temp 36.9 C (98.5 F) | Ht 1.651 m (5' 5") | Wt (!) 153.8 kg (339 lb 1.6 oz) | LMP 03/11/2003 | SpO2 93% | BMI 56.43 kg/m | BSA 2.66 m Physical Exam Vitals and nursing note [...] time. Mental status is at baseline. Motor: Weakness present. Gait: Gait abnormal. Psychiatric: Mood and Affect: Mood normal. Behavior: Behavior normal. 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 - Potassium Chloride ER 20 MEQ Oral Tablet Extended Release; Take by mouth 1 Tablet in the morning AND 1 Tablet before bedtime. - Magnesium Oxide 400 MG Oral Capsule; Take by mouth 1 Capsule in the morning AND 1 Capsule before bedtime. Continue Metolazone - COMPREHENSIVE METABOLIC PANEL; Future; Expected date: 06/18/2022 - CBC WITH WBC DIFFERENTIAL; Future; Expected date: 06/18/2022 - MAGNESIUM; Future; Expected date: 06/18/2022 - [facility] - PHYSICAL THERAPY REFERRAL OP Type 2 diabetes mellitus with stage 3b chronic kidney disease, with long-term current use of insulin (HCC) Continue Novolog, Tresiba, Metformin, and Trulicity Recurrent deep vein thrombosis (DVT) of both lower extremities (HCC) Continue Apixaban Chronic hypoxemic respiratory failure (HCC) Continue Oxygen Dyslipidemia Postsurgical hypothyroidism Continue Levothyroxine Statin intolerance Fibromyalgia Gastroesophageal reflux disease with esophagitis without hemorrhage Continue Omeprazole Hyperparathyroidism, secondary renal (HCC) ELLIE (generalized anxiety disorder) ELISSA (obstructive sleep apnea) Abnormality of gait - PHYSICAL THERAPY REFERRAL OP Lumbar radiculopathy - PHYSICAL THERAPY REFERRAL OP Continue Gabapentin Need for prophylactic vaccination and inoculation against influenza - INFLUENZA VACC, QUAD, HIGH DOSE (FLUZONE HD) Chronic diastolic congestive heart failure (HCC) - Furosemide 40 MG Oral Tablet (Lasix); Take by mouth 1 Tablet in the morning AND 1 Tablet before bedtime. - Potassium Chloride ER 20 MEQ Oral Tablet Extended Release; Take by mouth 1 Tablet in the morning AND 1 Tablet before bedtime. - Magnesium Oxide 400 MG Oral Capsule; Take by mouth 1 Capsule in the morning AND 1 Capsule before bedtime. - COMPREHENSIVE METABOLIC PANEL; Future; Expected date: 06/18/2022 - CBC WITH WBC DIFFERENTIAL; Future; Expected date: 06/18/2022 - MAGNESIUM; Future; Expected date: 06/18/2022 - [facility] Hospital discharge follow-up - DISCH MED RECON CUR MED LIS Follow-up: Return in about 2 weeks (around 07/02/2022), or if symptoms worsen or fail to improve. | Check-out note: Schedule PT Galdino Andujar DO * Shira De La Rosa RN - 06/18/2022 2:00 PM EDT PRE - ADMINISTRATION DOCUMENTATION Are you experiencing any cold symptoms or fever? No Have you had Guillain-[place] Syndrome (an illness that causes paralysis) within the last 6 weeks? No Have you had the flu shot in the past? YES Have you ever had a reaction to the flu shot? No Shira De La Rosa RN, 06/18/2022 2:00 PM Immunization Administration Documentation Time Out Procedure Performed: Yes Patient Identified (Ask Name/Date of ): Yes Does the patient have a fever greater than 101 degrees today? No Patient allergic to latex? No VFC Stock: No Immunization(s) verified: Yes, Immunization Name: Flu, VIS Sheet(s) given: Yes Verified Side and Site: Yes Verified Shot(s) with Parent(s)/Patient: Yes documented in this encounter Nursing Notes * RT Tri (Antione) - 06/18/2022 3:25 PM EDT Labs drawn per order and sent to [facility] * Shira De La Rosa RN - 06/18/2022 1:58 PM EDT Hospital f/u-d/c from [facility] 06/15/22 Right lower leg-red, slight swelling in foot-states they checked for new blood clots while in hospital-nothing new found-states all looked the same as before documented in this encounter Miscellaneous Notes * Addendum Note - Shira Gross LPN - 06/21/2022 10:53 AM EDT Addended by: SHIRA GROSS on: 06/21/2022 10:53 AM Modules accepted: Orders * Result QuickNote - Shira Gross LPN - 06/21/2022 10:48 AM EDT Sent my [email or web address] message. documented in this encounter Plan of Treatment Upcoming Encounters Date Type Specialty Care Team Description 06/21/2022 Home Visit [facility] Vera Capellan RN [address] [id number] 06/23/2022 Office Visit [facility], Pharmacist [address] [facility] [place] [address] 06/30/2022 Home Visit [facility] Simi Martinez PA-C [address] [place] [id number] 07/02/2022 Office Visit [facility] Medicine Galdino Andujar, DO [address] [facility] [place] [address] 07/22/2022 Office Visit Dermatology Micki Hernández MD [address] [facility] [place] [address] 07/28/2022 Imaging Radiology 07/28/2022 PulmDiagnostic Pulmonary Function [place], [address] [facility] [place] [address] 08/05/2022 Nurse Only [facility], Nurse Annual Wellness Visit [address] [facility] [place] [address] 08/25/2022 Office Visit Pulmonary Nikita Sanchez MD [address] [place] [address] 09/13/2022 Office Visit Family Medicine Galdino Andujar, [address] [facility] [address] Scheduled Orders Name Type Priority Associated Diagnoses Orde r Schedule CBC WITH WBC DIFFERENTIAL Lab Routine 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, NYHA class 1 and CKD stage 3 (HCC) Chronic diastolic congestive heart failure (HCC) Expected: 06/18/2022 (Approximate), Expires: 06/18/2023 CBC Lab Routine 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, NYHA class 1 and CKD stage 3 (HCC) Chronic diastolic congestive heart failure (HCC) Ordered: 06/18/2022 DIFFERENTIAL, AUTOMATED Lab Routine 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, NYHA class 1 and CKD stage 3 (HCC) Chronic diastolic congestive heart failure (HCC) Ordered: 06/18/2022 CBC WITH WBC DIFFERENTIAL Lab Routine 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, NYHA class 1 and CKD stage 3 (HCC) Chronic hypoxemic respiratory failure (HCC) ELISSA (obstructive sleep apnea) Chronic diastolic congestive heart failure (HCC) Expected: 06/21/2022 (Approximate), Expires: 06/21/2023 Scheduled Procedures Name Priority Associated Diagnoses Date/Ti me COLONOSCOPY FLEXIBLE PROXIMAL DIAGNOSTIC Recall Colon cancer screening Scheduled Referrals Name Type Priority Associated Diagnoses Orde r Schedule [facility] Referral Within 3 days (urgent) 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, NYHA class 1 and CKD stage 3 (HCC) Chronic diastolic congestive heart failure (HCC) Ordered: 06/18/2022 PHYSICAL THERAPY REFERRAL OP Referral Within 10 days (routine) 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, NYHA class 1 and CKD stage 3 (HCC) Abnormality of gait Lumbar radiculopathy Ordered: 06/18/2022 Health Maintenance Due Date Last Done Comments [...] Additional history exists CKD HGB USE SMARTSET 24374 01/07/202301/07, 01/07/2022, 12/26/2021, Additional history exists CKD PHOS USE SMARTSET 75691 01/07/2023 04/12/2021, 03/12/2021, 11/17/2020, Additional history exists [...] Procedure Name Priority Date/Time Associated Diagnosis Comments COMPREHENSIVE METABOLIC PANEL Routine 06/18/2022 3:21 PM EDT 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, NYHA class 1 and CKD stage 3 (HCC) Chronic diastolic congestive heart failure (HCC) MAGNESIUM Routine 06/18/2022 3:21 PM EDT 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, NYHA class 1 and CKD stage 3 (HCC) Chronic diastolic congestive heart failure (HCC) documented in this encounter Results * MAGNESIUM (06/18/2022 3:21 PM EDT) Magnesium 1.6 1.5 - 2.6 mg/dL [facility] Specimen Blood - Venous blood specime n (specimen) [facility] [address] [place] [address] * (ABNORMAL) COMPREHENSIVE METABOLIC PANEL (06/18/2022 3:21 PM EDT) BUN 24(H) 6 - 20 mg/dL [facility] Creatinine 1.4(H) 0.5 - 1.0 mg/dL [facility] Estimated Glomerular Filtration Rate 43(L)Comment:eGFR is calculated based on the CKD-EPI 2020 equation >=60 mL/min [facility] Sodium 137 135 - 146 mmol/L [facility] Potassium 4.9 3.5 - 5.1 mmol/L [facility] Chloride 97(L) 98 - 107 mmol/L [facility] CO2 27 22 - 32 mmol/L [facility] Anion Gap 13 7 - 15 mmol/L [facility] Glucose 254(H) 70 - 120 mg/dL [facility] Albumin 4.2 3.8 - 5.0 g/dL [facility] AST 22Comment:Result may be falsely elevated due to hemolysis. 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, NYHA class 1 and CKD stage 3 (HCC) Type 2 diabetes mellitus with stage 3b chronic kidney disease, with long-term current use of insulin (HCC) Recurrent deep vein thrombosis (DVT) of both lower extremities (HCC) Chronic hypoxemic respiratory failure (HCC) Chronic respiratory failure Dyslipidemia Other and unspecified hyperlipidemia Postsurgical hypothyroidism Statin intolerance Other drug allergy Fibromyalgia Mylagia and myositis, unspecified Gastroesophageal reflux disease with esophagitis without hemorrhage Hyperparathyroidism, secondary renal (HCC) Secondary hyperparathyroidism (of renal origin) ELLIE (generalized anxiety disorder) Generalized anxiety disorder ELISSA (obstructive sleep apnea) Obstructive sleep apnea (adult) (pediatric) Abnormality of gait Lumbar radiculopathy Thoracic or lumbosacral neuritis or radiculitis, unspecified Need for prophylactic vaccination and inoculation against influenza Chronic diastolic congestive heart failure (HCC) Chronic diastolic heart failure Hospital discharge follow-up Other follow-up examination documented in this encounter Advance Directives Documents on File Type Date Recorded 

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
--- OUTSIDE RECORDS SUMMARY | 2023-06-01 04:31 | External Medical Summary | Summary of Care ---
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 Contact [facility] Client Services at to find out service days for a specific location. Medical Laboratory Patient Name: Stephanie Camp : 1955 Sex: female Address [address] [facility] [address] [facility] [address] Provider: None? Galdino Andujar DO? Diagnosis: Tests Requested CBCD Reason for Visit * Reason Onset Date Comments [facility]: Maintenance 06/21/2022 Encounter Details Date Type Department Care Team Description 06/21/2022 Telephone Family Practice [address] [facility] [address] [place] [address] Galdino Andujar DO [address] [place] [address] [facility]: Maintenance Allergies Active Allergy [...] 90 Cap 3 12/18/2019 Active DIURETIC TITRATION PLANIndications:Thread Cutter Tender zahra diastolic congestive heart failure (HCC) [...] with hemoglobin A1c goal of 7.0%-8.0% ([facility]) Inject 40 units with meals + sliding scale 1 units for every 25 units BG > 150. 121 mL 3 11/04/2021 Active Tresiba FlexTouch 100 UNIT/ML Subcutaneous Solution Pen-injector (Insulin Degludec)Indications :Type 2 diabetes mellitus with hemoglobin A1c goal of 7.0%-8.0% ([facility]) Inject under the skin 60 [...] % Nasal Solution Administer into nostril 1 [place] in the morning AND 1 [place] before bedtime. 30 mL 12 02/18/2022 Active Nortriptyline HCl 50 MG Oral Capsule (Pamelor)Indications :Fibromyalgia TAKE ONE CAPSULE BY MOUTH AT BEDTIME 100 Capsule 3 04/01/2022 Active Dexcom G6 Shrub Planter Device Use as directed . Supplied by [employer]. [phone] Active Dexcom G6 Sensor Use as directed . Change every 10 days Supplied by [employer]. [phone] Active Dexcom G6 Transmitter Use as directed . Change every 90 days Supplied by [employer]. 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 Demetra Berumen. RN [facility] oracle hyperion consultant [phone] * Telephone Encounter - Shira Gross LPN - 06/21/2022 10:53 AM EDT Client services contacted this nurse and stated that CBC clotted. Can G@H redraw CBCD on 06/25 at time of visit? documented in this encounter Plan of Treatment Upcoming Encounters Date Type Specialty Care Team Description 06/23/2022 Office Visit [facility], Pharmacist 65 [facility] 293 [place] [address] 06/30/2022 [facility] Visit [facility]C [facility] [address] 07/02/2022 Office Visit Family Medicine Galdino Andujar, DO [address] [facility], [place] [address] 07/15/2022 [facility] Visit [facility] [place] [address] 07/22/2022 Office Visit Dermatology Micki Hernández MD [address] [place] [address] 07/28/2022 Imaging Radiology 07/28/2022 PulmDiagnostic Pulmonary Function West, Pft [address] [facility] [place] [address] 08/05/2022 Nurse Only Ancillary [place], Nurse Annual Wellness Visit [address] [facility] [address] [place] [address] 08/25/2022 Office Visit Pulmonary Nikita Sanchez MD [address] [place] [id number] 09/13/2022 Office Visit Family Medicine Galdino Andujar, DO [address] [facility], [place] [address] Scheduled Procedures Name Priority Associated Diagnoses Date/Ti [...] Additional history exists CKD HGB USE SMARTSET 50757 01/07/202301/07, 01/07/2022, 12/26/2021, Additional history exists CKD PHOS USE SMARTSET 33742 01/07/2023 0412/2021, 03/12/2021, 11/17/2020, Additional history exists [...] Documents on File Type Date Recorded Patient Patrol Captain Expl anation Advanced Directive Advanced Directive Advanced [...] Camp Other Health Care Hayden r of Health Center Assistant Princess Allen Other Health Care Pow er of Health Center Assistant Care Teams Manager Bilingual Relationship Specialty Start Date End Date Galdino Andujar, DO [address] [place] [address] PCP - General Internal Medicine 01/07/22 documented as of this encounter
--- OUTSIDE RECORDS SUMMARY | 2023-06-01 04:31 | External Medical Summary | Summary of Care ---
Author Name Unknown Organization [place] [address] Care Team Providers Care Clinical Education Specialist Name Role Phone Galdino Andujar DO Primary Care Provider [phone] Reason for Visit * Reason Onset Date Comments Scheduling 06/23/2022 Encounter Details Date Type Department Care Team Description 06/23/2022 Telephone Family Practice 65 [facility] [place] [address] [place] [address] Galdino Andujar DO [address] [place] [address] Scheduling Allergies Active Allergy Reactions [...] 90 Cap 3 12/18/2019 Active DIURETIC TITRATION PLANIndications:Medical Coding Manager 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 1 Each 0 04/08/2020 Active Blood Glucose Monitoring Suppl (BrandcastUCH ULTRA 2) w/Device KIT Use to test [...] times daily 500 Each 3 11/04/2021 Active [place] [employer] Network[employer] Ultra Blue In Vitro Strip (Glucose Blood) [...] mellitus with hemoglobin A1c goal of 7.0%-8.0% ([facility]) Inject 40 units with meals + sliding scale 1 units for every 25 units BG > 150. 121 mL 3 11/04/2021 Active Tresiba FlexTouch 100 UNIT/ML Subcutaneous Solution Pen-injector (Insulin Degludec)Indications :Type 2 diabetes mellitus with hemoglobin A1c goal of 7.0%-8.0% ([facility]) Inject under the skin 60 [...] % Nasal Solution Administer into nostril 1 [place] in the morning AND 1 [place] before bedtime. 30 mL 12 02/18/2022 Active Nortriptyline HCl 50 MG Oral Capsule (Pamelor)Indications :Fibromyalgia TAKE ONE CAPSULE BY MOUTH AT BEDTIME 100 Capsule 3 04/01/2022 Active Dexcom G6 Clinical Lab Technologist Device Use as directed . Supplied by Sawant [employer] [facility], [facility]. [phone] Active Dexcom G6 Sensor Use as directed . Change every 10 days Supplied by [employer] [facility], [facility]. [phone] Active Dexcom G6 Transmitter Use as directed . Change every 90 days Supplied by [employer] [facility], [facility]. [phone] 0 Active rOPINIRole HCl 2 MG Oral [...] hemoglobin A1c goal of less than 8.0% ([facility]) Take by mouth 1 Tablet [...] 03/25/2016 Fibromyalgia 02/02/2016 Abnormality of gait 02/02/[address] [place] [address] 08/19/2014 History of [...] mRNA, LNP-s, No Pre serve, 2-Dose Series (ADIKTIVO) 12/29/2020,12/18/2020 COVID-19, LNP-s, No Preserve , Navarro-sucrose, Ages 12+ (Pfizer) 2022,10/01/2021 Pneumococcal Conjugate Vacci ne, 20-valent ([id number]) 03/12/2022 Pneumococcal Polysaccharide PPV23 (Pneumovax) 08/22/2009,06/15/2006 Seasonal [...] Specialty Care Team Description 06/28/2022 Office Visit [facility], Pharmacist 65 [facility] 293 [place] [address] 06/29/2022 Laboratory Laboratory Processing [facility], [facility] Mobile Home Draw [address] [place] [address] 06/30/2022 [facility] Visit [facility] Simi aMrtinez [facility]-C [facility] [address] 07/02/2022 Office Visit [facility] Medicine Galdino Andujar, 293 [place] [address] 07/15/2022 Home Visit [facility] Vera Capellan RN 132 [place] [address] 07/22/2022 Office Visit Dermatology Micki Hernández MD [address] [place] [address], [place] [address] 07/28/2022 Imaging Radiology 07/28/2022 PulmDiagnostic Pulmonary Function West, Pft 132 [facility] [place] [address] 08/05/2022 Nurse Only [facility], Nurse Annual Wellness Visit [address] [place] [address] 08/25/2022 Office Visit Pulmonary Nikita Sanchez MD [address] [place] [address] 09/13/2022 Office Visit Family Medicine Galdino Andujar, DO 293 [place] [address] Scheduled Procedures Name Priority Associated Diagnoses Date/Ti [...] Additional history exists CKD HGB USE SMARTSET 74640 01/07/202301/07, 01/07/2022, 12/26/2021, Additional history exists CKD PHOS USE SMARTSET 50086 01/07/202312/25, 03/12/2021, 11/17/2020, Additional history exists DIABETES-FOOT [...] Documents on File Type Date Recorded Patient Hospital Housekeeper Expl anation Advanced Directive Advanced Directive Advanced [...] Camp Other Health Care Hayden r of Thiokol Operator Princess Allen Other Health Care Pow er of Thiokol Operator Care Teams Clinical Education Specialist Relationship Specialty Start Date End Date Galdino Andujar, DO [address] [place] [address] PCP - General Internal Medicine 01/07/22 documented as of this encounter
--- OUTSIDE RECORDS SUMMARY | 2023-06-01 04:32 | External Medical Summary | Summary of Care ---
Author Name Unknown Organization [place] [address] Care Team Providers Care Fine Arts Instructor Name Role Phone Galdino Andujar DO Primary Care Provider [phone] Reason for Visit * Reason Onset Date Comments Scheduling 06/18/2022 Encounter Details Date Type Department Care Team Description 06/18/2022 Telephone [facility], [facility] [address] [facility] [place] [address] Services, Scheduling [address] [place] [address] Scheduling Allergies Active Allergy Reactions Severity Noted Date Comments Codeine 07/08/2014 hallucination Pollen 05/18/2019 Heparin 09/04/2009 Heparin Induced Thrombocytopenia Hydrocodone Neuro complications (Please comment) 07/28/2020 Empagliflozin Other (Please comment) Medium 05/17/2018 3 yeast infections in 6 weeks after starting Morphine And Related 09/16/1997 Hallucinations Tetanus Toxoid Other (Please comment) 06/15/2011 Passed out documented as of this encounter (statuses as of 06/18/2022) Medications Medication Sig Dispensed Refills Start Date [...] 90 Cap 3 12/18/2019 Active DIURETIC TITRATION PLANIndications:Director Index 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 1 Each 0 04/08/2020 Active Blood Glucose Monitoring Suppl (IXcellerateTOUCH ULTRA 2) w/Device KIT Use to test [...] % Nasal Solution Administer into nostril 1 [place] in the morning AND 1 [place] before bedtime. 30 mL 12 02/18/2022 Active Nortriptyline HCl 50 MG Oral Capsule (Pamelor)Indications :Fibromyalgia TAKE ONE CAPSULE BY MOUTH AT BEDTIME 100 Capsule 3 04/01/2022 Active Dexcom G6 Sail Cutter Device Use as directed . Supplied by [employer]. [phone] Active Dexcom G6 Sensor Use as directed . Change every 10 days Supplied by [place] [employer] [facility], [facility]. [phone] Active Dexcom G6 Transmitter Use as directed . Change every 90 days Supplied by Sawant [employer] [facility]. [phone] Active rOPINIRole HCl 2 MG Oral [...] as of this encounter (statuses as of 06/18/2022) Active Problems Problem Noted Date Encounter for [...] 03/25/2016 Fibromyalgia 02/02/2016 Abnormality of gait 02/02/[address] [place] [address] 08/19/2014 History of pulmonary [...] as of this encounter (statuses as of 06/18/2022) Resolved Problems Problem Noted Date Resolved Date [...] as of this encounter (statuses as of 06/18/2022) Immunizations Name Administration Dates Next Due COVID-19 mRNA, LNP-s, No Pre serve, 2-Dose Series (Breezeplay) 12/29/2020,12/18/2020 COVID-19, LNP-s, No Preserve , Navarro-sucrose, Ages 12+ (Pfizer) 2022,10/01/2021 Pneumococcal Conjugate Vacci ne, 20-valent ([id number]) 03/12/2022 Pneumococcal Polysaccharide PPV23 (Pneumovax) 08/22/2009,06/15/2006 Seasonal [...] encounter Miscellaneous Notes * Telephone Encounter - Karyn Clarke LPN - 06/18/2022 4:11 PM EDT PCP office requesting [facility] see patient on Tuesday Spoke with patient Scheduled as follows: Vera Capellan: 06/21 1230pm Simi Martinez: 06/30 10am * Telephone Encounter - ELISSA Edwards - 06/18/2022 3:57 PM EDT Patient is agreeable to G&H service. 06/25 12:30pm Vera Capellan RN Pending moving date in 1 month from today. Will need to follow-up with patient. [address] Patient need to confirm address. NORMA RN please finding-out new address for patient. documented in this encounter Plan of Treatment Upcoming Encounters Date Type Specialty Care Team Description 06/21/2022 Home Visit [facility] Vera Capellan, RN 132 [facility] [place] [address] 06/23/2022 Office Visit [facility], Pharmacist [address] [address] 06/30/2022 Home Visit [facility] Simi Martinez PA-C 132 [facility] [place] [address] 07/02/2022 Office Visit Family Medicine Galdino Andujar, 293 [facility], [place] [address] 07/22/2022 Office Visit Dermatology Micki Hernández MD [address] [place] [address], [place] [address] 07/28/2022 Imaging Radiology 07/28/2022 PulmDiagnostic Pulmonary Function West, Pft 132 [facility] [place] [address] 08/05/2022 Nurse Only [facility], Nurse Annual Wellness Visit [address] [place] [address] 08/25/2022 Office Visit Pulmonary Nikita Sanchez MD [address] [place] [address] 09/13/2022 Office Visit Family Galdino Toscano DO 293 [facility], [place] [address] Scheduled Procedures Name Priority Associated Diagnoses Date/Ti me COLONOSCOPY FLEXIBLE PROXIMAL DIAGNOSTIC Recall Colon cancer screening Health Maintenance Due Date Last Done Comments Cologuard: Ages 45-75 2000 FOBT: Ages 45-75 2000 Sigmoidoscopy: Ages 45-75 2000 COVID-19 Vaccine (5 - Booster) 06/08/2022 2022, 10/01/2021, 12/29/2020, Additional history exists DIABETES-HGBA1C EVERY 6 MONTHS 11/12/2022 05/12/2022, 01/07/2022, 11/17/2020, Additional history exists GFR - Renal Function 11/12/2022 05/12/2022, 01/07/2022, 12/26/2021, Additional history exists Alb / Creat Ratio 01/07/2023 01/07/2022, , 05/01/2018, Additional history exists CKD HGB USE SMARTSET 54954 01/07/202301/07, 01/07/2022, 12/26/2021, Additional history exists CKD PHOS USE SMARTSET 73089 01/07/202312/25, 03/12/2021, 11/17/2020, Additional history exists DIABETES-FOOT EXAM 01/07/2023 01/07/2022, 0 01/14/2021, 11/07/2019, Additional history exists TSH FOR THYROID MEDICATION MONITORING YEARLY 01/07/2023 01/07/2022, 12/25/2020, 05/06/2020, Additional history exists DIABETES-EYE EXAM 05/24/2023 05/24/2022, , 04/07/2020, Additional history exists Depression Screening, Annual for Pts 12 and Over 06/09/2023 06/18/2022, 06/12/2018 Mammogram 02/12/2024 02/11/2022, 01/0 02/2021, [...] Documents on File Type Date Recorded Patient Cable Placer Expl anation Advanced Directive Advanced Directive Advanced [...] Camp Other Health Care Hayden r of Lip Cutter And Scorer Princess Allen Other Health Care Pow er of Lip Cutter And Scorer Care Teams Fine Arts Instructor Relationship Specialty Start Date End Date Galdino Andujar, DO [address] [place] [address] PCP - General Internal Medicine 01/07/22 documented as of this encounter
--- OUTSIDE RECORDS SUMMARY | 2023-06-01 04:32 | External Medical Summary | Summary of Care ---
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 Yes Does patient have [facility] insurance? Yes Comments Is referral coming from Care Coordination and Integration? 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, NYHA class 1 and CKD stage 3 (HCC)*; Type 2 diabetes mellitus with stage 3b chronic kidney disease, with long-term current use of insulin ([facility]); Recurrent deep vein thrombosis (DVT) of both lower extremities ([facility]); Chronic hypoxemic respiratory failure ([facility]); Dyslipidemia; Postsurgical hypothyroidism; Statin intolerance; Fibromyalgia; Gastroesophageal [...] daily 180 Each 5 08/01/2018 Active oxygen GASIndications:LEISSA (obstructive sleep apnea) 2 lpm continuous 0 [...] 0 04/08/2020 Active Blood Glucose Monitoring Suppl (iCo [employer] ULTRA 2) w/Device KIT Use to test [...] times daily 500 Each 3 11/04/2021 Active [employer]Touch Ultra Blue In Vitro Strip (Glucose [...] % Nasal Solution Administer into nostril 1 [place] in the morning AND 1 [place] before bedtime. 30 mL 12 02/18/2022 Active Nortriptyline HCl 50 MG Oral Capsule (Pamelor)Indication s:Fibromyalgia TAKE ONE CAPSULE BY MOUTH AT BEDTIME 100 Capsule 3 04/01/2022 Active Dexcom G6 Perioperative Manager Device Use as directed . Supplied by Sawant [employer] [facility], [facility]. [phone] 0 Active Dexcom G6 Sensor Use as directed . Change every 10 days Supplied by Sawant [place] [employer] [facility], [facility]. [phone] 0 Active Dexcom G6 Transmitter Use as directed . Change every 90 days Supplied by [employer] [facility]. [phone] 0 Active rOPINIRole HCl 2 MG Oral [...] by mouth every other day. 0 06/18/20 Discontinu ed(Medicat ion/Dose Changed) Furosemide 40 MG [...] 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/31/2021 Atherosclerosis of [place] coronary arter y without angina pectoris [...] mRNA, LNP-s, No Pre serve, 2-Dose Series (Orphazyme) 12/29/2020,12/18/2020 COVID-19, LNP-s, No Preserve , Navarro-sucrose, Ages 12+ (Orphazyme) 2022,10/01/2021 Pneumococcal Conjugate Vacci ne, 20-valent ([id number]) 03/12/2022 Pneumococcal Polysaccharide PPV23 (Pneumovax) 08/22/2009,06/15/2006 Seasonal [...] recently admitted to [facility]. The date of discharge was 06/15/2022.Discharge report [...] follow up. The patient was admitted to [facility] on 06/10/2022 to treat CHF, and [...] pulmonary embolus (PE) Z86.711 Statin intolerance Z78.[address] [place] [address] Z95.828 Fibromyalgia M79.7 Abnormality of gait R26.9 Restless legs syndrome G25.81 Gastroesophageal reflux disease with esophagitis K21.00 Morbid obesity with BMI of 50.0-59.9, adult ([facility]) E66.01, Z68.43 Controlled substance agreement signed Z79.899 Chronic diastolic congestive heart failure ([facility]) I50.32 Mild episode of recurrent major depressive disorder ([facility]) F33.0 Lumbar radiculopathy M54.16 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, NYHA class 1 and CKD stage 3 ([facility]) I13.0, I50.30, N18.30 Hyperparathyroidism, secondary renal ([facility]) N25.81 Vasculitis ([facility]) I77.6 Primary osteoarthritis of left knee M17.12 Spinal stenosis of lumbar region without neurogenic claudication M48.061 Type 2 diabetes mellitus with diabetic chronic kidney disease ([facility]) E11.22 Heparin induced thrombocytopenia (HIT) ([facility]) D75.82 Atherosclerosis of [place] coronary artery without angina pectoris I25.10 Carotid artery stenosis, asymptomatic, right I65.21 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 Encounter for long-term (current) use of other medications Z79.899 Type 2 diabetes mellitus with stage 3b chronic kidney disease ([facility]) E11.22, N18.32 Type 2 diabetes mellitus with hemoglobin A1c goal of less than 8.0% ([facility]) E11.9 Recurrent deep vein thrombosis (DVT) of both lower extremities ([facility]) I82.403 Chronic hypoxemic respiratory failure ([facility]) J96.11 Current Outpatient Medications Medication Sig Dispense [...] 90 Cap 3 Blood Glucose Monitoring Suppl (LeoTOUCH ULTRA 2) w/Device KIT Use to test [...] % Nasal Solution Administer into nostril 1 [place] in the morning AND 1 [place] before bedtime. 30 mL 12 Nortriptyline HCl 50 MG Oral Capsule (Pamelor) TAKE ONE CAPSULE BY MOUTH AT BEDTIME 100 Capsule3 Dex[employer] G6 Perioperative Manager Device Use as directed . Supplied by [employer]. [phone] Moz G6 Sensor Use as directed . Change every 10 days Supplied by [employer]. [phone] Moz G6 Transmitter Use as directed . Change every 90 days Supplied by [employer]. [phone] rOPINIRole HCl 2 MG Oral Tablet (Requip) [...] 1 and CKD stage 3 ([facility])(Primary) - Furosemide 40 MG Oral Tablet (Lasix); [...] symptoms or fever? No Have you had Guillain-[place] Syndrome (an illness that causes paralysis) within [...] in this encounter Nursing Notes * Shira De La Rosa RN - 06/18/2022 1:58 PM EDT Hospital f/u-d/c from [facility] 06/15/22 Right lower leg-red, slight swelling in foot-states they checked for new blood clots while in hospital-nothing new found-states all looked the same as before documented in this encounter Plan of Treatment Upcoming Encounters Date Type Specialty Care Team Description 06/23/2022 Office Visit [facility], Pharmacist 65 [facility] 293 [place] [address] 07/22/2022 Office Visit Dermatology Micki Hernández MD [address] [place] [address] 07/28/2022 Imaging Radiology 07/28/2022 PulmDiagnostic Pulmonary Function West, Pft 132 [facility] [place] [address] 08/05/2022 Nurse Only [facility], Nurse Annual Wellness Visit 65 [facility] 293 [place] [address] 08/25/2022 Office Visit Pulmonary Nikita Sanchez MD [address] [place] [address] 09/13/2022 Office Visit [facility] Medicine Galdino Andujar, 293 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, NYHA class 1 and CKD stage 3 (HCC) Chronic diastolic congestive heart failure (HCC) Expected: 06/18/2022 (Approximate), Expires: 06/18/2023 MAGNESIUM Lab Routine 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, NYHA class 1 and CKD stage 3 (HCC) Chronic diastolic congestive heart failure (HCC) Expected: 06/18/2022 (Approximate), Expires: 06/18/2023 Scheduled Procedures Name Priority Associated Diagnoses Date/Ti [...] Additional history exists CKD HGB USE SMARTSET 47950 01/07/202301/07, 01/07/2022, 12/26/2021, Additional history exists CKD PHOS USE SMARTSET 86708 01/07/202312/25, 03/12/2021, 11/17/2020, Additional history exists DIABETES-FOOT EXAM 01/07/2023 01/07/2022, 0 01/14/2021, 11/07/2019, Additional history exists TSH FOR THYROID MEDICATION MONITORING YEARLY 01/07/2023 01/07/2022, 12/25/2020, 05/06/2020, Additional history exists DIABETES-EYE EXAM 05/24/2023 05/24/2022, , 04/07/2020, Additional history exists Depression Screening, Annual for Pts 12 and Over 06/09/2023 06/09/2022, 06/12/2018 Mammogram 02/12/2024 02/11/2022, 01/02/2021, 07/10/2019, Additional [...] Documents on File Type Date Recorded Patient Mandarin Teacher Expl anation Advanced Directive Advanced Directive Advanced [...] Camp Other Health Care Hayden r of Information Technology Officer Princess Staplesfany Other Health Care Pow er of Information Technology Officer Care Teams Pie Topper Relationship Specialty Start Date End Date Galdino Andujar, DO [address] [place] [address] PCP - General Internal Medicine 01/07/22 documented as of this encounter
--- OUTSIDE RECORDS SUMMARY | 2023-06-01 04:32 | External Medical Summary | Summary of Care ---
Author Name Unknown Organization [facility] Address [place] [address] Care Team Providers Care Air Analysis Technician Name Role Phone Galdino Andujar DO Primary Care Provider [phone] Reason for Visit * Reason Onset Date Comments [facility]: Engagement 06/17/2022 Encounter Details Date Type Department Care Team Description 06/17/2022 Scheduled Telephone [facility], [facility] [address] [place] [address] Coordinator, [facility] [address] [place] [address] Allergies Active Allergy Reactions Severity Noted Date [...] 90 Cap 3 12/18/2019 Active DIURETIC TITRATION PLANIndications: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 1 Each 0 04/08/2020 Active Blood Glucose Monitoring Suppl (Diasome ULTRA 2) w/Device KIT Use to test [...] of 7.0%-8.0% ([facility]) Inject 40 units with meals + sliding scale 1 units for every 25 units BG > 150. 121 mL 3 11/04/2021 Active Tresiba FlexTouch 100 UNIT/ML Subcutaneous Solution Pen-injector (Insulin Degludec)Indications :Type 2 diabetes mellitus with hemoglobin A1c goal of 7.0%-8.0% ([facility]) Inject under the skin 60 [...] % Nasal Solution Administer into nostril 1 [place] in the morning AND 1 [place] before bedtime. 30 mL 12 02/18/2022 Active Nortriptyline HCl 50 MG Oral Capsule (Pamelor)Indications :Fibromyalgia TAKE ONE CAPSULE BY MOUTH AT BEDTIME 100 Capsule 3 04/01/2022 Active Dexcom G6 Civil Draftsman Device Use as directed . Supplied by [employer] [facility], [facility]. [phone] Active Dexcom G6 Sensor Use as directed . Change every 10 days Supplied by [employer], [facility]. [phone] Active Dexcom G6 Transmitter Use as directed . Change every 90 days Supplied by [employer], [facility]. [phone] Active rOPINIRole HCl 2 MG Oral [...] before bedtime. 100 Tablet 3 06/08/2022 Active Hospital, Clinic, or Other Facility Administered [...] 03/25/2016 Fibromyalgia 02/02/2016 Abnormality of gait 02/02/[address] [place] [address] 08/19/2014 History of pulmonary [...] (Pfizer) 2022,10/01/2021 Pneumococcal Conjugate Vacci ne, 20-valent ([id number]) 03/12/2022 Pneumococcal Polysaccharide PPV23 (Pneumovax) 08/22/2009,06/15/2006 Seasonal Influenza, Quadriva lent Hd (Fluzone Hd) 07/20/2021 Seasonal Influenza, Quadriva lent, No Preserve, 6 [...] Telephone Encounter - ELISSA Edwards - 06/18/2022 3:51 PM EDT [facility] Engagement Attempt Engagement: Engagement Attempt 1: Contacted - Agreed to home-based services Scheduled appointment information: No data was found Home Information: No data was found Advance Care Planning (ACP): No data was found Has Living Will or Advance Directive: No data was found Anticipated Sub-Program: Focused Care Management (3-9 months) Confirmation of Sub-Program Type (by care hourly team members): No data was found Handoff Information: Current care team notified via: No data was found Current telemonitoring equipment: No data was found Patient is agreeable to G&H service. 06/25 12:30pm Vera Capellan RN Pending moving date in 1 month from today. Will need to follow-up with patient. [facility] [address] Patient need to confirm address. documented in this encounter Plan of Treatment Upcoming Encounters Date Type Specialty Care Team Description 06/21/2022 Home Visit [facility] Vera Capellan RN [address] [place] [address] 06/23/2022 Office Visit [facility], Pharmacist [address] [address] 06/30/2022 Home Visit [facility] Simi Martinez PA-C [address] [place] [address] 07/02/2022 Office Visit Family Medicine Galdino Andujar, DO 293 [facility] [place] [address] 07/22/2022 Office Visit Dermatology Micki Hernández MD [address] [facility] [place] [address] 07/28/2022 Imaging Radiology 07/28/2022 PulmDiagnostic Pulmonary Function West, Pft [address] [facility] [place] [address] 08/05/[address] [facility], Nurse Annual Wellness Visit [address] [facility] [place] [address] 08/25/2022 Office Visit Pulmonary Nikita Sanchez MD [address] [place] [address] 09/13/2022 Office Visit Family Medicine Galdino Andujar, DO 293 [facility] [place] [address] Scheduled Procedures Name Priority Associated Diagnoses Date/Ti [...] Additional history exists CKD HGB USE SMARTSET 57011 01/07/202301/07, 01/07/2022, 12/26/2021, Additional history exists CKD PHOS USE SMARTSET 64742 01/07/202312/25, 03/12/2021, 11/17/2020, Additional history exists DIABETES-FOOT [...] Documents on File Type Date Recorded 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
--- OUTSIDE RECORDS SUMMARY | 2023-06-01 04:32 | External Medical Summary | Summary of Care ---
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 1 Each 0 04/08/2020 Active Blood Glucose Monitoring Suppl (SouthWingTOUCH ULTRA 2) w/Device KIT Use to test [...] ([facility]) Inject 40 units with meals + sliding scale 1 units for every 25 units BG > 150. 121 mL 3 11/04/2021 Active Tresiba FlexTouch 100 UNIT/ML Subcutaneous Solution Pen-injector (Insulin Degludec)Indications :Type 2 diabetes mellitus with hemoglobin A1c goal of 7.0%-8.0% ([facility]) Inject under the skin 60 Units in [...] % Nasal Solution Administer into nostril 1 [place] in the morning AND 1 [place] before bedtime. 30 mL 12 02/18/2022 Active Nortriptyline HCl 50 MG Oral Capsule (Pamelor)Indications :Fibromyalgia TAKE ONE CAPSULE BY MOUTH AT BEDTIME 100 Capsule 3 04/01/2022 Active Dexcom G6 Middle School History Teacher Device Use as directed . Supplied by [employer], [employer]. [phone] Active Dexcom G6 Sensor Use as directed . Change every 10 days Supplied by [employer]. [phone] Active Dexcom G6 Transmitter Use as directed . Change every 90 days Supplied by [employer]. [phone] Active rOPINIRole HCl 2 MG Oral [...] 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/31/2021 Atherosclerosis of [place] coronary arter y without angina pectoris 12/31/2021 [...] (Pfizer) 2022,10/01/2021 Pneumococcal Conjugate Vacci ne, 20-valent ([id number]) 03/12/2022 Pneumococcal Polysaccharide PPV23 (Pneumovax) 08/22/2009,06/15/2006 Seasonal [...] [facility] Vera Capellan, RN 132 [facility] [address] 06/23/2022 Office Visit [facility], Pharmacist [address] [address] 06/30/2022 Home Visit [facility] Simi Martinez PA-C 132 [facility] [place] [address] 07/02/2022 Office Visit Family Medicine Galdino Andujar, DO 293 [facility], [place] [address] 07/22/2022 Office Visit Dermatology Micki Hernández MD [address] [place] [address] 07/28/2022 Imaging Radiology 07/28/2022 PulmDiagnostic Pulmonary Function West, Pft 132 [facility] [place] [address] 08/05/2022 Nurse Only [facility], Nurse Annual Wellness Visit [address] [place] [address] 08/25/2022 Office Visit Pulmonary Nikita Sanchez MD [address] [place] [address] 09/13/2022 Office Visit Family Galdino Toscano, DO 293 [facility], [place] [address] Scheduled Procedures Name Priority Associated Diagnoses Date/Ti [...] Additional history exists CKD HGB USE SMARTSET 23729 01/07/202301/07, 01/07/2022, 12/26/2021, Additional history exists CKD PHOS USE SMARTSET 31072 01/07/202312/25, 03/12/2021, 11/17/2020, Additional history exists DIABETES-FOOT [...] Procedure Name Priority Date/Time Associated Diagnosis Comments ECHOCARDIOLOGY SCANNED RESULT 06/11/2022 documented in this encounter Results * ECHOCARDIOLOGY SCANNED RESULT (06/11/2022) Specimen Narrative documented in this encounter Advance Directives Documents on File Type Date Recorded Patient Recording Clerk Expl anation Advanced Directive Advanced Directive Advanced [...] Camp Other Health Care Hayden r of Steel Erecting Pusher [phone] ([place]) Princess Allen Other Health Care Pow er of Steel Erecting Pusher Care Teams B2B Managed Service Sales Exec Relationship Specialty Start Date End Date Galdino Andujar, [address] [place] [address] PCP - General Internal Medicine 01/07/22 documented as of this encounter
--- OUTSIDE RECORDS SUMMARY | 2023-06-01 04:32 | External Medical Summary | Summary of Care ---
Author Name Unknown Organization [place] [address] Care Team Providers Care Cafe Or Restaurant Manager Name Role Phone Galdino Andujar DO Primary Care Provider [phone] Reason for Visit * Reason Onset Date Comments Scheduling 06/18/2022 Encounter Details Date Type Department Care Team Description 06/18/2022 Telephone [facility], [facility] [address] [facility] [place] [address] Services, Scheduling [address] [place] [address] Scheduling Allergies Active Allergy Reactions Severity Noted [...] 90 Cap 3 12/18/2019 Active DIURETIC TITRATION PLANIndications:Occ Ther 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 1 Each 0 04/08/2020 Active Blood Glucose Monitoring Suppl (AdvanDxTOUCH ULTRA 2) w/Device KIT Use to test [...] goal of 7.0%-8.0% ([facility]) Inject under the skin 60 [...] % Nasal Solution Administer into nostril 1 [place] in the morning AND 1 [place] before bedtime. 30 mL 12 02/18/2022 Active Nortriptyline HCl 50 MG Oral Capsule (Pamelor)Indications :Fibromyalgia TAKE ONE CAPSULE BY MOUTH AT BEDTIME 100 Capsule 3 04/01/2022 Active Dexcom G6 Spout Positioner Device Use as directed . Supplied by [employer]. [phone] Active Dexcom G6 Sensor Use as directed . Change every 10 days Supplied by [facility], [facility]. [phone] Active Dexcom G6 Transmitter Use as directed . Change every 90 days Supplied by [employer] [facility]. [phone] Active rOPINIRole HCl 2 MG Oral [...] less than 8.0% ([facility]) Take by mouth 1 Tablet [...] 03/25/2016 Fibromyalgia 02/02/2016 Abnormality of gait 02/02/[address] [place] [address] 08/19/2014 History of pulmonary [...] mRNA, LNP-s, No Pre serve, 2-Dose Series (Qlue) 12/29/2020,12/18/2020 COVID-19, LNP-s, No Preserve , Navarro-sucrose, Ages 12+ (Pfizer) 2022,10/01/2021 Pneumococcal Conjugate Vacci ne, 20-valent ([id number]) 03/12/2022 Pneumococcal Polysaccharide PPV23 (Pneumovax) 08/22/2009,06/15/2006 Seasonal [...] 06/18/2022 4:11 PM EDT PCP office requesting [facility] see patient on Tuesday Spoke with patient [...] [facility] Vera Capellan, RN 132 [facility] [place] [address] 06/23/2022 Office Visit [facility], Pharmacist [address] [address] 06/30/2022 Home Visit [facility] Simi Martinez PA-C 132 [facility] [place] [address] 07/02/2022 Office Visit Family Medicine Galdino Andujar, 293 [facility], [place] [address] 07/22/2022 Office Visit Dermatology Micki Hernández MD [address] [place] [address], [place] [address] 07/28/2022 Imaging Radiology 07/28/2022 PulmDiagnostic Pulmonary Function West, Pft 132 [facility] [place] [address] 08/05/2022 Nurse Only [facility], Nurse Annual Wellness Visit [address] [place] [address] 08/25/2022 Office Visit Pulmonary Nikita Sanchez MD [address] [place] [address] 09/13/2022 Office Visit Family Galdino Toscano DO 293 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
--- OUTSIDE RECORDS SUMMARY | 2023-06-01 04:32 | External Medical Summary | Summary of Care ---
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 Yes Does patient have [facility] insurance? Yes Comments Is referral coming from Care Coordination and Integration? 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, NYHA class 1 and CKD stage 3 (HCC)*; Type 2 diabetes mellitus with stage 3b chronic kidney disease, with long-term current use of insulin ([facility]); Recurrent deep vein thrombosis (DVT) of both lower extremities ([facility]); Chronic hypoxemic respiratory failure ([facility]); Dyslipidemia; Postsurgical hypothyroidism; Statin intolerance; [...] 0 04/08/2020 Active Blood Glucose Monitoring Suppl (1.618 Technology ULTRA 2) w/Device KIT Use to test [...] times daily 500 Each 3 11/04/2021 Active Lunera LightingTouch Ultra Blue In Vitro Strip (Glucose Blood) [...] % Nasal Solution Administer into nostril 1 [place] in the morning AND 1 [place] before bedtime. 30 mL 12 02/18/2022 Active Nortriptyline HCl 50 MG Oral Capsule (Pamelor)Indication s:Fibromyalgia TAKE ONE CAPSULE BY MOUTH AT BEDTIME 100 Capsule 3 04/01/2022 Active Dexcom G6 Motor Vehicle Clerk Device Use as directed . Supplied by [employer] [facility], [facility]. [phone] Active Dexcom G6 Sensor Use as directed . Change every 10 days Supplied by [employer] [facility], [facility]. [phone] Active Dexcom G6 Transmitter Use as directed . Change every 90 days Supplied by [employer] [facility]. [phone] Active rOPINIRole HCl 2 MG Oral [...] mRNA, LNP-s, No Pre serve, 2-Dose Series (WILEX) 12/29/2020,12/18/2020 COVID-19, LNP-s, No Preserve , Navarro-sucrose, Ages 12+ (WILEX) 2022,10/01/2021 Pneumococcal Conjugate Vacci ne, 20-valent (Cheogep10) 03/12/2022 Pneumococcal Polysaccharide PPV23 (Pneumovax) 08/22/2009,06/15/2006 Seasonal [...] Recent Admission: Patient was recently admitted to [facility]. The date of discharge was 06/15/2022.Discharge report [...] follow up. The patient was admitted to [facility] on 06/10/2022 to treat CHF, and [...] pulmonary embolus (PE) Z86.711 Statin intolerance Z78.[address] [place] [address] Z95.828 Fibromyalgia M79.7 Abnormality of gait R26.9 Restless legs syndrome G25.81 Gastroesophageal reflux disease with esophagitis K21.00 Morbid obesity with BMI of 50.0-59.9, adult ([facility]) E66.01, Z68.43 Controlled substance agreement signed Z79.899 Chronic diastolic congestive heart failure ([facility]) I50.32 Mild episode of recurrent major depressive disorder ([facility]) F33.0 Lumbar radiculopathy M54.16 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, NYHA class 1 and CKD stage 3 ([facility]) I13.0, I50.30, N18.30 Hyperparathyroidism, secondary renal ([facility]) N25.81 Vasculitis ([facility]) I77.6 Primary osteoarthritis of left knee M17.12 Spinal stenosis of lumbar region without neurogenic claudication M48.061 Type 2 diabetes mellitus with diabetic chronic kidney disease ([facility]) E11.22 Heparin induced thrombocytopenia (HIT) ([facility]) D75.82 Atherosclerosis of [place] coronary artery without angina pectoris I25.10 Carotid artery stenosis, asymptomatic, right I65.21 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 Encounter for long-term (current) use of other medications Z79.899 Type 2 diabetes mellitus with stage 3b chronic kidney disease ([facility]) E11.22, N18.32 Type 2 diabetes mellitus with hemoglobin A1c goal of less than 8.0% ([facility]) E11.9 Recurrent deep vein thrombosis (DVT) of both lower extremities ([facility]) I82.403 Chronic hypoxemic respiratory failure ([facility]) J96.11 Current Outpatient Medications Medication [...] 90 Cap 3 Blood Glucose Monitoring Suppl (AutoquakeTOUCH ULTRA 2) w/Device KIT Use to test [...] % Nasal Solution Administer into nostril 1 [place] in the morning AND 1 [place] before bedtime. 30 mL 12 Nortriptyline HCl 50 MG Oral Capsule (Pamelor) TAKE ONE CAPSULE BY MOUTH AT BEDTIME 100 Capsule3 DexcomScore G6 Motor Vehicle Clerk Device Use as directed . Supplied by [employer]. [phone] [employer] G6 Sensor Use as directed . Change every 10 days Supplied by [employer]. [phone] [employer] G6 Transmitter Use as directed . Change every 90 days Supplied by [employer]. [phone] rOPINIRole HCl 2 MG Oral Tablet (Requip) [...] 1 and CKD stage 3 ([facility])(Primary) - Furosemide 40 MG Oral [...] symptoms or fever? No Have you had Guillain-Homestead Syndrome (an illness that causes paralysis) within [...] Labs drawn per order and [place] [facility] [place] Shira De La Rosa RN - 06/18/2022 1:58 PM EDT Hospital f/u-d/c from [facility] 06/15/22 Right lower leg-red, slight swelling in foot-states they checked for new blood clots while in hospital-nothing new found-states all looked the same as before documented in this encounter Plan of Treatment Upcoming Encounters Date Type Specialty Care Team Description 06/23/2022 Office Visit [facility], Pharmacist [address] [place] [address] 07/02/2022 Office Visit Family Medicine Galdino Andujar, 293 [facility], [place] [address] 07/22/2022 Office Visit Dermatology Micki Hernández MD [address] [place] [address] 07/28/2022 Imaging Radiology 07/28/2022 PulmDiagnostic Pulmonary Function West, Pft [address] [employer] [place] [address] 08/05/2022 Nurse Only [facility], Nurse Annual Wellness Visit [address] [place] [address] 08/25/2022 Office Visit Pulmonary Nikita Sanchez MD [address] [place] [id number] 09/13/2022 Office Visit Family Medicine Galdino Andujar, DO 293 [facility], [place] [address] Scheduled Orders Name Type Priority Associated Diagnoses [...] diastolic congestive heart failure (HCC) Ordered: 06/18/2022 Scheduled Procedures Name Priority Associated Diagnoses Date/Ti [...] Additional history exists CKD HGB USE SMARTSET 06601 01/07/202301/07, 01/07/2022, 12/26/2021, Additional history exists CKD PHOS USE SMARTSET 27089 01/07/202312/25, 03/12/2021, 11/17/2020, Additional history exists DIABETES-FOOT EXAM 01/07/2023 01/07/2022, 0 01/14/2021, 11/07/2019, Additional history exists TSH FOR THYROID MEDICATION MONITORING YEARLY 01/07/2023 01/07/2022, 12/25/2020, 05/06/2020, Additional history exists DIABETES-EYE EXAM 05/24/2023 05/24/2022, , 04/07/2020, Additional history exists Depression Screening, Annual for Pts 12 and Over 06/09/2023 06/09/2022, 06/12/2018 Mammogram 02/12/2024 02/11/2022, 0102/2021, 07/10/2019, Additional history exists Colonoscopy: Ages 45-75 [...] Documents on File Type Date Recorded 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
--- OUTSIDE RECORDS SUMMARY | 2023-06-01 04:33 | External Medical Summary | Summary of Care ---
Author Name Unknown Organization [place] [address] Care Team Providers Care Curriculum Assistant Name Role Phone Pratima Galdino Neal DO Primary Care Provider [phone] Reason for Visit * Reason Onset Date Comments case management 06/17/2022 ROSA Comp Encounter Details Date Type Department Care Team Description 06/17/2022 Director Of Acquisitions Telephone Care Coordination [address] [place] [address] Xiang Lugo, risk management intern (ROSA Comp ) Allergies Active Allergy Reactions Severity Noted Date Comments Codeine 07/08/2014 hallucination Pollen 05/18/2019 Heparin 09/04/2009 Heparin Induced Thrombocytopenia Hydrocodone Neuro complications (Please comment) 07/28/2020 Empagliflozin Other (Please comment) Medium 05/17/2018 3 yeast infections in 6 weeks after starting Morphine And Related 09/16/1997 Hallucinations Tetanus Toxoid Other (Please comment) 06/15/2011 Passed out documented as of this encounter (statuses as of 06/17/2022) Medications Medication Sig Dispensed Refills Start Date [...] 90 Cap 3 12/18/2019 Active DIURETIC TITRATION PLANIndications:Spool Sorter 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 1 Each 0 04/08/2020 Active Blood Glucose Monitoring Suppl (AIMTOUCH ULTRA 2) w/Device KIT Use to test [...] take unless instructed by provider 0 Active Potassium Chloride Ayleen ER 10 MEQ Oral Tablet Extended Release Take 10 mEq by mouth every other day. 0 Active Cholecalciferol 125 MCG (5000 UT) Oral Capsule Take 1,000 Units by mouth daily. 0 Active BD Pen Needle Short U/F 31G X 8 MM (Insulin Pen Needle) use five times daily 500 Each 3 11/04/2021 Active Furosemide 40 MG Oral Tablet (Lasix)Indications:C hronic diastolic congestive heart failure (HCC) Take by mouth 0.5 Tablets in the morning AND 0.5 Tablets before bedtime. May take an additional 20 mg 2 to 3 days per week as needed for worsening swelling. 135 Tablet 0 11/04/2021 Active OneTouch Ultra Blue In Vitro [...] % Nasal Solution Administer into nostril 1 [place] in the morning AND 1 [place] before bedtime. 30 mL 12 02/18/2022 Active Nortriptyline HCl 50 MG Oral Capsule (Pamelor)Indications :Fibromyalgia TAKE ONE CAPSULE BY MOUTH AT BEDTIME 100 Capsule 3 04/01/2022 Active Dexcom G6 Sampler Tester Device Use as directed . Supplied by [employer], [employer]. [phone] 0 Active Dexcom G6 Sensor Use as directed . Change every 10 days Supplied by [employer], [employer]. [phone] 0 Active Dexcom G6 Transmitter Use as directed . Change every 90 days Supplied by [employer], [employer]. [phone] 0 Active rOPINIRole HCl 2 MG Oral [...] hemoglobin A1c goal of less than 8.0% ([facility]) Take by mouth 1 Tablet in the [...] as of this encounter (statuses as of 06/17/2022) Active Problems Problem Noted Date Encounter for [...] 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/31/2021 Atherosclerosis of [place] coronary arter y without angina pectoris 12/31/2021 [...] 03/25/2016 Fibromyalgia 02/02/2016 Abnormality of gait 02/02/[address] 08/19/2014 History of pulmonary [...] as of this encounter (statuses as of 06/17/2022) Resolved Problems Problem Noted Date Resolved Date [...] as of this encounter (statuses as of 06/17/2022) Immunizations Name Administration Dates Next Due COVID-19 mRNA, LNP-s, No Pre serve, 2-Dose Series ([place]) 12/29/2020,12/18/2020 COVID-19, LNP-s, No Preserve , [place]arro-sucrose, Ages 12+ (Pfizer) 2022,10/01/2021 Pneumococcal Conjugate Vacci ne, 20-valent ([id number]) 03/12/2022 Pneumococcal Polysaccharide PPV23 (Pneumovax) 08/22/2009,06/15/2006 Seasonal [...] got money to buy more. Never true 06/09/2022 Within the past 12 months, t he food you bought just didn't last and you didn't have money to get more. Never true 06/09/2022 Sex Assigned at Date Recorded Female 11/07/2019 2:[address] Job Start Date Occupation Industry Not on file Not on file Not on file documented as of this encounter Miscellaneous Notes * Telephone Encounter - Xiang Lugo RN - 06/17/2022 11:10 AM EDT Case Management Assessment Is this call for a hospital, assisted or rehab facility discharge to home? Yes [facility] 06/10-06/15: CHF, Bronchitis and UTI S: Reports: Spoke with Stephanie discharged home on 06/15 - reports feeling fairly well - working on getting back to baseline Swelling decreased and back to baseline - denies worsening shortness of breath - feels it is back to baseline - continue oxygen use 2-4L has not needed increased since discharge. Weight gain: Denies Weight stable at 339 lbs Increased edema: denies Chest pain denies Increased shortness of breath: oxygen 2L-rest and 4L-activity/exercise conserving device (C-PAP / BiPAP) Chills / Sweats / Fever: denies chills/sweats and denies fever Fall: denies any falls since last Care Management encounter Appetite: denies muscle cramps, dizziness, fainting denies nausea, vomiting, burning, decreased appetite Bowel: denies problems Bladder: denies problems Pain: 04/04 Fibromyalgia pain Using walker or cane for ambulation - denies falls - no longer receiving HH due to not being home bound Possible candidate for G@H - waiting for call to see if eligible Medication reconciliation and taking all medications as prescribed - all post discharge medicationspicked up Reviewed with pt red flags and s/s that should be called to CM/PCP office and she verbalized understanding. Primary CM to f/u in 3-6 days and as needed for reassessment. O: Phone visit for ROSA Comp. Medications: takes all medications as prescribed. Does this patient qualify for an annual wellness visit? No A: Patient Centered Prioritized Goals: Patient and caregiver demonstrate basic understanding of their disease process. Exacerbations have been prevented, minimized or reduced in severity. Co-morbid conditions identified and managed. Patient/ caregiver demonstrates adherence to treatment plan. Identified Barriers: No identified barriers FUNCTIONAL STATUS: (Definition - assess ability to patient to manage their own care, includes evaluation of activities of daily living, and instrumental activities of daily living, and cognitive abilities status) ADL'S - Needs Assistance With: N/A as pt is independent IADL'S - Needs Assistance With: N/A as pt is independent Cognitive and Mental Health: denies problems, alert and oriented x 3 and able to communicate, understand instructions, process information. P: Director Of Acquisitions Interventions: Reinforce Self Management Action Plan established at previous visit PCP Notified of enrollment in CM/HM program: Yes SNP Member? Yes Is Provider in agreement with POC? Yes Re-evaluation of plan of care and progress towards goals achievement: Plan to call patient in 3-6 days to reassess and update plan of care, verbalizes understanding and agrees with plan. Xiang Lugo RN Outpatient Director Of Acquisitions documented in this encounter Plan of Treatment Upcoming Encounters Date Type Specialty Care Team Description 06/18/2022 Office Visit Family Medicine Galdino Andujar, DO [address] [place] [address] 06/23/[address] [facility], Pharmacist [address] [facility] [address] [place] [address] 07/22/2022 Office Visit Dermatology Micki Hernández MD [address] [place] [address], [place] [address] 07/28/2022 Imaging Radiology 07/28/2022 PulmDiagnostic Pulmonary Function [facility], [address] [place] [address] 08/05/2022 Nurse Only [employer], Nurse Annual Wellness Visit [address] [place] [address] 08/25/2022 Office Visit Pulmonary Nikita Sanchez MD [address] [place] [id number] 09/13/2022 Office Visit Family Medicine Galdino Andujar, [address] [place] [address] Scheduled Procedures Name Priority Associated Diagnoses Date/Ti me COLONOSCOPY FLEXIBLE PROXIMAL DIAGNOSTIC Recall Colon cancer screening Health Maintenance Due Date Last Done Comments Cologuard: Ages 45-75 2000 FOBT: Ages 45-75 2000 Sigmoidoscopy: Ages 45-75 2000 Influenza Vaccine (FLU shot) (#1) 2022 07/20/2021, 06/13/2020, 07/23/2019, Additional history exists COVID-19 Vaccine (5 - Booster) 06/08/2022 2022, 10/01/2021, 12/29/2020, Additional history exists DIABETES-HGBA1C EVERY 6 MONTHS 11/12/2022 05/12/2022, 01/07/2022, 11/17/2020, Additional history exists GFR - Renal Function 11/12/2022 05/12/2022, 01/07/2022, 12/26/2021, Additional history exists Alb / Creat Ratio 01/07/2023 01/07/2022, , 05/01/2018, Additional history exists CKD HGB USE SMARTSET 52715 01/07/202301/07, 01/07/2022, 12/26/2021, Additional history exists CKD PHOS USE SMARTSET 44482 01/07/202312/25, 03/12/2021, 11/17/2020, Additional history exists DIABETES-FOOT EXAM 01/07/2023 01/07/2022, 0 01/14/2021, 11/07/2019, Additional history exists TSH FOR THYROID MEDICATION MONITORING YEARLY 01/07/2023 01/07/2022, 12/25/2020, 05/06/2020, Additional history exists DIABETES-EYE EXAM 05/24/2023 05/24/2022, , 04/07/2020, Additional history exists Depression Screening, Annual for Pts 12 and Over 06/09/2023 06/09/2022, 06/12/2018 Mammogram 02/12/2024 02/11/2022, /02/2021, 07/10/2019, Additional history exists Colonoscopy: Ages 45-75 [...] Documents on File Type Date Recorded Patient Drill Hand Expl anation Advanced Directive Advanced Directive Advanced [...] Camp Other Health Care Hayden r of Open Cut Examiner Princess Allen Other Health Care Pow er of Open Cut Examiner Care Teams Curriculum Assistant Relationship Specialty Start Date End Date Galdino Andujar, DO [address] [place] [address] PCP - General Internal Medicine 01/07/22 documented as of this encounter
--- OUTSIDE RECORDS SUMMARY | 2023-06-01 04:33 | External Medical Summary | Summary of Care ---
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 Yes Does patient have [facility] insurance? Yes Comments Is referral coming from Care Coordination and Integration? 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, NYHA class 1 and CKD stage 3 (HCC)*; Type 2 diabetes mellitus with stage 3b chronic kidney disease, with long-term current use of insulin ([facility]); Recurrent deep vein thrombosis (DVT) of both lower extremities ([facility]); Chronic hypoxemic respiratory failure ([facility]); Dyslipidemia; Postsurgical hypothyroidism; Statin intolerance; Fibromyalgia; Gastroesophageal [...] 0 04/08/2020 Active Blood Glucose Monitoring Suppl (pushd ULTRA 2) w/Device KIT Use to test [...] times daily 500 Each 3 11/04/2021 Active [employer]ian MedicalTouch Ultra Blue In Vitro Strip (Glucose Blood) [...] % Nasal Solution Administer into nostril 1 [place] in the morning AND 1 [place] before bedtime. 30 mL 12 02/18/2022 Active Nortriptyline HCl 50 MG Oral Capsule (Pamelor)Indication s:Fibromyalgia TAKE ONE CAPSULE BY MOUTH AT BEDTIME 100 Capsule 3 04/01/2022 Active Dexcom G6 Dye Tank Tender Device Use as directed . Supplied by [employer] [facility], [facility]. [phone] 0 Active Dexcom G6 Sensor Use as directed . Change every 10 days Supplied by [employer] [facility]. [phone] 0 Active Dexcom G6 Transmitter Use as directed . Change every 90 days Supplied by [email or web address] [facility]. [phone] 0 Active rOPINIRole HCl 2 MG Oral [...] than 8.0% ([facility]) Take by mouth 1 Tablet in [...] 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/31/2021 Atherosclerosis of [place] coronary arter y without angina pectoris 12/31/2021 [...] mRNA, LNP-s, No Pre serve, 2-Dose Series (Sokrati) 12/29/2020,12/18/2020 COVID-19, LNP-s, No Preserve , Navarro-sucrose, Ages 12+ (Sokrati) 2022,10/01/2021 Pneumococcal Conjugate Vacci ne, 20-valent ([id number]) 03/12/2022 Pneumococcal Polysaccharide PPV23 (Pneumovax) 08/22/2009,06/15/2006 Seasonal [...] Recent Admission: Patient was recently admitted to [facility]. The date of discharge was 06/15/2022.Discharge [...] follow up. The patient was admitted to [facility] on 06/10/2022 to treat CHF, and [...] pulmonary embolus (PE) Z86.711 Statin intolerance Z78.[address] [place] [address] Z95.828 Fibromyalgia M79.7 Abnormality of gait R26.9 Restless legs syndrome G25.81 Gastroesophageal reflux disease with esophagitis K21.00 Morbid obesity with BMI of 50.0-59.9, adult ([facility]) E66.01, Z68.43 Controlled substance agreement signed Z79.899 Chronic diastolic congestive heart failure ([facility]) I50.32 Mild episode of recurrent major depressive disorder ([facility]) F33.0 Lumbar radiculopathy M54.16 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, NYHA class 1 and CKD stage 3 ([facility]) I13.0, I50.30, N18.30 Hyperparathyroidism, secondary renal ([facility]) N25.81 Vasculitis ([facility]) I77.6 Primary osteoarthritis of left knee M17.12 Spinal stenosis of lumbar region without neurogenic claudication M48.061 Type 2 diabetes mellitus with diabetic chronic kidney disease ([facility]) E11.22 Heparin induced thrombocytopenia (HIT) ([facility]) D75.82 Atherosclerosis of [place] coronary artery without angina pectoris I25.10 Carotid artery stenosis, asymptomatic, right I65.21 Leukocytoclastic vasculitis ([facility]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 Encounter for long-term (current) use of other medications Z79.899 Type 2 diabetes mellitus with stage 3b chronic kidney disease ([facility]) E11.22, N18.32 Type 2 diabetes mellitus with hemoglobin A1c goal of less than 8.0% ([facility]) E11.9 Recurrent deep vein thrombosis (DVT) of both lower extremities ([facility]) I82.403 Chronic hypoxemic respiratory failure ([facility]) J96.11 Current Outpatient Medications Medication Sig Dispense [...] 90 Cap 3 Blood Glucose Monitoring Suppl (HandprintTOUCH ULTRA 2) w/Device KIT Use to test [...] % Nasal Solution Administer into nostril 1 [place] in the morning AND 1 [place] before bedtime. 30 mL 12 Nortriptyline HCl 50 MG Oral Capsule (Pamelor) TAKE ONE CAPSULE BY MOUTH AT BEDTIME 100 Capsule3 [employer]Road G6 Dye Tank Tender Device Use as directed . Supplied by [employer]. [phone] [employer] G6 Sensor Use as directed . Change every 10 days Supplied by [employer]. [phone] [employer] G6 Transmitter Use as directed . Change every 90 days Supplied by [employer]. [phone] rOPINIRole HCl 2 MG Oral Tablet (Requip) [...] and CKD stage 3 ([facility])(Primary) - Furosemide 40 MG Oral Tablet (Lasix); [...] symptoms or fever? No Have you had Guillain-Corn Syndrome (an illness that causes paralysis) within [...] 06/18/2022 1:58 PM EDT Hospital f/u-d/c from [facility] 06/15/22 Right lower leg-red, slight swelling in foot-states they checked for new blood clots while in hospital-nothing new found-states all looked the same as before documented in this encounter Plan of Treatment Upcoming Encounters Date Type Specialty Care Team Description 06/23/2022 Office Visit [facility], Pharmacist [address] [facility] [address] [place] [address] 07/22/2022 Office Visit Dermatology Micki Hernández MD [address] [place] [address] 07/28/2022 Imaging Radiology 07/28/2022 PulmDiagnostic Pulmonary Function [facility], [address] [facility] [address] [address] 08/05/2022 Nurse Only [facility], Nurse Annual Wellness Visit [address] [facility] [address] [place] [address] 08/25/2022 Office Visit Pulmonary Nikita Sanchez MD [address] [address] 09/13/2022 Office Visit [facility] Medicine Galdino Andujar, [address] [place] [address] Scheduled Orders Name Type Priority Associated Diagnoses [...] Additional history exists CKD HGB USE SMARTSET 92291 01/07/202301/07, 01/07/2022, 12/26/2021, Additional history exists CKD PHOS USE SMARTSET 30825 01/07/202312/25, 03/12/2021, 11/17/2020, Additional history exists DIABETES-FOOT [...] Documents on File Type Date Recorded Patient Station Mechanic Helper Expl anation Advanced Directive Advanced Directive [...] Other Health Care Hayden r of Peer Financial Counselor Princess Staplesfany Other Health Care Pow er of Peer Financial Counselor Care Teams Press Brake Operator Relationship Specialty Start Date End Date Galdino Andujar, DO [address] [place] [address] PCP - General Internal Medicine 01/07/22 documented as of this encounter
--- OUTSIDE RECORDS SUMMARY | 2023-06-01 04:33 | External Medical Summary | Summary of Care ---
Author Name Unknown Organization [place] [address] Care Team Providers Care Restaurant Area Director Name Role Phone Galdino Andujar DO Primary Care Provider [phone] Encounter Details Date Type Department Care Team Description 06/10/2022 Scan Encounter Family Practice 65 [facility] [place] [address] [place] [phone] Galdino Andujar DO [address] [place] [address] <No scans attached> Allergies Active Allergy Reactions Severity Noted Date Comments Codeine 07/08/2014 hallucination Pollen 05/18/2019 Heparin 09/04/2009 Heparin Induced Thrombocytopenia Hydrocodone Neuro complications (Please comment) 07/28/2020 Empagliflozin Other (Please comment) Medium 05/17/2018 3 yeast infections in 6 weeks after starting Morphine And Related 09/16/1997 Hallucinations Tetanus Toxoid Other (Please comment) 06/15/2011 Passed out documented as of this encounter (statuses as of 06/14/2022) Medications Medication Sig Dispensed Refills Start Date [...] 90 Cap 3 12/18/2019 Active DIURETIC TITRATION PLANIndications:Hot Kettle Tender 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 1 Each 0 04/08/2020 Active Blood Glucose Monitoring Suppl (ADstrucUCH ULTRA 2) w/Device KIT Use to test [...] % Nasal Solution Administer into nostril 1 [place] in the morning AND 1 [place] before bedtime. 30 mL 12 02/18/2022 Active Nortriptyline HCl 50 MG Oral Capsule (Pamelor)Indications :Fibromyalgia TAKE ONE CAPSULE BY MOUTH AT BEDTIME 100 Capsule 3 04/01/2022 Active Dexcom G6 Field Investigator Device Use as directed . Supplied by Sawant [employer] [facility], [facility]. [phone] Active Dexcom G6 Sensor Use as directed . Change every 10 days Supplied by [employer] [facility], [facility]. [phone] Active Dexcom G6 Transmitter Use as directed . Change every 90 days Supplied by [employer] [facility], [facility]. [phone] Active rOPINIRole HCl 2 MG Oral [...] before bedtime. 100 Tablet 3 06/08/2022 Active Doxycycline Hyclate 100 MG Oral CapsuleIndications:A cute cough,SOB (shortness of breath) Take by mouth 1 Capsule in the morning AND 1 Capsule before bedtime. Do all this for 7 days. Take for 7 days. 14 Capsule 0 06/09/2022 2 Active predniSONE 20 MG Oral Tablet (Deltasone)Indicatio ns:Acute cough,SOB (shortness of breath) Take by mouth 1 Tablet in the morning for 5 days. 5 Tablet 0 06/09/2022 2 Active Hospital, Clinic, or Other Facility Administered Medication Ordered Dose Route Frequency Start Date End Date Status Albuterol Sulfate (Proventil) (2.5 MG/3ML) 0.083% inhalation solution 2.5 mgIndications:Chronic hypoxemic respiratory failure (HCC) 2.5 mg NEBULIZER Q4H PRN 10/08/2021 Active documented as of this encounter (statuses as of 06/14/2022) Active Problems Problem Noted Date Encounter for [...] as of this encounter (statuses as of 06/14/2022) Resolved Problems Problem Noted Date Resolved Date [...] as of this encounter (statuses as of 06/14/2022) Immunizations Name Administration Dates Next Due COVID-19 mRNA, LNP-s, No Pre serve, 2-Dose Series ([employer]) 12/29/2020,12/18/2020 COVID-19, LNP-s, No Preserve , Navarro-sucrose, Ages 12+ (Pfizer) 2022,10/01/2021 Pneumococcal Conjugate Vacci ne, 20-valent ([id number]) 03/12/2022 Pneumococcal Polysaccharide PPV23 (Pneumovax) 08/22/2009,06/15/2006 Seasonal [...] Encounters Date Type Specialty Care Team Description 06/14/2022 Office Visit Family Medicine Galdino Andujar, 293 [place] [address] 06/16/2022 Office Visit Family Medicine Galdino Andujar DO 293 [facility], [place] [address] 06/23/2022 Office Visit [facility], Pharmacist [address] [facility] [address] [place] [address] 07/22/2022 Office Visit Dermatology Micki Hernández MD [address] [place] [address], [place] [address] 07/28/2022 Imaging Radiology 07/28/2022 PulmDiagnostic Pulmonary Function [place], [address] [place] [address] 08/05/2022 Nurse Only Ancillary [employer], Nurse Annual Wellness Visit [address] [place] [address] 08/25/2022 Office Visit Pulmonary Nikita Sanchez MD [address] [place] [address] 09/13/2022 Office Visit Family Medicine Galdino Andujar, DO 293 [place] [address] Scheduled Procedures Name Priority Associated Diagnoses Date/Ti me COLONOSCOPY FLEXIBLE PROXIMAL DIAGNOSTIC Recall Colon cancer screening Health Maintenance Due Date Last Done Comments Cologuard: Ages 45-75 2000 FOBT: Ages 45-75 2000 Sigmoidoscopy: Ages 45-75 2000 Influenza Vaccine (FLU shot) (#1) 2022 07/20/2021, 06/13/2020, 07/23/2019, Additional history exists DIABETES-HGBA1C EVERY 6 MONTHS 11/12/2022 05/12/2022, 01/07/2022, 11/17/2020, Additional history exists GFR - Renal Function 11/12/2022 05/12/2022, 01/07/2022, 12/26/2021, Additional history exists Alb / Creat Ratio 01/07/2023 01/07/2022, , 05/01/2018, Additional history exists CKD HGB USE SMARTSET 60376 01/07/202301/07, 01/07/2022, 12/26/2021, Additional history exists CKD PHOS USE SMARTSET 95869 01/07/202312/25, 03/12/2021, 11/17/2020, Additional history exists DIABETES-FOOT EXAM 01/07/2023 01/07/2022, 0 01/14/2021, 11/07/2019, Additional history exists TSH FOR THYROID MEDICATION MONITORING YEARLY 01/07/2023 01/07/2022, 12/25/2020, 05/06/2020, Additional history exists DIABETES-EYE EXAM 05/24/2023 05/24/2022, , 04/07/2020, Additional history exists Depression Screening, Annual for Pts 12 and Over 06/09/2023 06/09/2022, 06/12/2018 Mammogram 02/12/2024 02/11/2022, 02/2021, 07/10/2019, Additional history exists Colonoscopy: Ages 45-75 02/17/2026 02/18/20 16, 01/28/2006, 10/27/2005 Colorectal Cancer Screening (Colonoscopy 10 Years; Sigmoidoscopy 5 Years; Cologuard 3 Years; FOBT 1 Year): Ages 45-75 02/17/2026 Zoster Vaccines Completed 05/08/2020, 10/27, 12/11/2015 Pneumococcal Vaccine: 65+ Years Completed 03/12/2022, 08/22/2009, 06/15/2006 COVID-19 Vaccine Completed 2022, 02/2022, 12/29/2020, Additional history exists GARDASIL-HPV IMMUNIZATION SERIES Aged [...] Documents on File Type Date Recorded Patient Funeral Workers Expl anation Advanced Directive Advanced Directive Advanced [...] Camp Other Health Care Hayden r of Supervisory Examiner Princess [place] Other Health Care Pow er of Supervisory Examiner Care Teams Restaurant Area Director Relationship Specialty Start Date End Date Galdino Andujar, DO [address] [place] [address] PCP - General Internal Medicine 01/07/22 documented as of this encounter
--- OUTSIDE RECORDS SUMMARY | 2023-06-01 04:33 | External Medical Summary | Summary of Care ---
Author Name Unknown Organization [place] [address] Care Team Providers Care Collateral Analyst Name Role Phone Galdino Andujar DO Primary Care Provider [phone] Reason for Visit * Reason Onset Date Comments [facility]: Screening 06/14/2022 Encounter Details Date Type Department Care Team Description 06/14/2022 Telephone [facility], [facility] [address] [facility] [place] [id number] [facility], Nurse [facility] [address] [facility] [place] [address] [facility]: Screening Allergies Active Allergy Reactions Severity Noted [...] 90 Cap 3 12/18/2019 Active DIURETIC TITRATION PLANIndications:Sky Cap 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 1 Each 0 04/08/2020 Active Blood Glucose Monitoring Suppl (Tame ULTRA 2) w/Device KIT Use to test [...] worsening swelling. 135 Tablet 0 11/04/2021 Active ShelfXTouch Ultra Blue In Vitro Strip (Glucose Blood) [...] % Nasal Solution Administer into nostril 1 [place] in the morning AND 1 [place] before bedtime. 30 mL 12 02/18/2022 Active Nortriptyline HCl 50 MG Oral Capsule (Pamelor)Indications :Fibromyalgia TAKE ONE CAPSULE BY MOUTH AT BEDTIME 100 Capsule 3 04/01/2022 Active Dexcom G6 Biological Scientist Device Use as directed . Supplied by [employer]. [phone] Active Dexcom G6 Sensor Use as directed . Change every 10 days Supplied by [employer], [employer]. [phone] Active Dexcom G6 Transmitter Use as directed . Change every 90 days Supplied by [employer]. 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 Atherosclerosis of [place] coronary arter y without angina pectoris 12/31/2021 [...] 03/25/2016 Fibromyalgia 02/02/2016 Abnormality of gait 02/02/[address] [place] [address] 08/19/2014 History of pulmonary [...] mRNA, LNP-s, No Pre serve, 2-Dose Series (LinkStorm) 12/29/2020,12/18/2020 COVID-19, LNP-s, No Preserve , Navarro-sucrose, Ages 12+ (Pfizer) 2022,10/01/2021 Pneumococcal Conjugate Vacci ne, 20-valent ([id number]) 03/12/2022 Pneumococcal Polysaccharide PPV23 (Pneumovax) 08/22/2009,06/15/2006 Seasonal [...] Telephone Encounter - Sadia Mcdonald LPN - 06/14/2022 1:23 PM EDT Stephanie Camp was referred as a potential candidate for enrollment for [facility]. A review of this chart was completed and Stephanie meets criteria for [facility]. Jump to Episodes of Care to create Episode and document smartforms. documented in this encounter Plan of Treatment Upcoming Encounters Date Type Specialty Care Team Description 06/16/2022 Office Visit Family Medicine Galdino Andujar, DO [address] [place] [address] 06/23/2022 Office Visit [facility], Pharmacist [address] [place] [address] 07/22/2022 Office Visit Dermatology Micki Hernández MD [address] [facility] [place] [address] 07/28/2022 Imaging Radiology 07/28/2022 PulmDiagnostic Pulmonary Function West, [address] [facility] [place] [address] 08/05/2022 Nurse Only Ancillary [place], Nurse Annual Wellness Visit 65 [facility] [address] [facility] [place] [address] 08/25/2022 Office Visit Pulmonary Nikita Sanchez MD [address] [place] [address] 09/13/2022 Office Visit Family Medicine Galdino Andujar DO [address] [facility] [place] [address] Scheduled Procedures Name Priority Associated Diagnoses Date/Ti [...] Additional history exists CKD HGB USE SMARTSET 21997 01/07/202301/07, 01/07/2022, 12/26/2021, Additional history exists CKD PHOS USE SMARTSET 95778 01/07/202312/25, 03/12/2021, 11/17/2020, Additional history exists DIABETES-FOOT [...] Documents on File Type Date Recorded Patient Site Foreman Expl anation Advanced Directive Advanced Directive Advanced [...] Camp Other Health Care Hayden r of Smoke And Flame Specialist Princess [place] Other Health Care Pow er of Smoke And Flame Specialist Care Teams Collateral Analyst Relationship Specialty Start Date End Date Galdino Andujar, DO [address] [place] [address] PCP - General Internal Medicine 01/07/22 documented as of this encounter
--- OUTSIDE RECORDS SUMMARY | 2023-06-01 04:33 | External Medical Summary | Summary of Care ---
Author Name Unknown Organization [place] [address] Care Team Providers Care Manager Six Sigma Name Role Phone Galdino Andujar DO Primary Care Provider [phone] Encounter Details Date Type Department Care Team Description 06/15/2022 Scan Encounter Family Practice 65 [facility] [place] [address] [place] [phone] Galdino Andujar DO [address] [place] [address] <No scans attached> Allergies Active Allergy Reactions [...] 90 Cap 3 12/18/2019 Active DIURETIC TITRATION PLANIndications:Kiln Stacker 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 1 Each 0 04/08/2020 Active Blood Glucose Monitoring Suppl ([employer] Bank GroupUCH ULTRA 2) w/Device KIT Use to test [...] % Nasal Solution Administer into nostril 1 [place] in the morning AND 1 [place] before bedtime. 30 mL 12 02/18/2022 Active Nortriptyline HCl 50 MG Oral Capsule (Pamelor)Indications :Fibromyalgia TAKE ONE CAPSULE BY MOUTH AT BEDTIME 100 Capsule 3 04/01/2022 Active Dexcom G6 Rug Scratcher Device Use as directed . Supplied by [employer] [facility], [facility]. [phone] Active Dexcom G6 Sensor Use as directed . Change every 10 days Supplied by [employer] [facility], [facility]. [phone] Active Dexcom G6 Transmitter Use as directed . Change every 90 days Supplied by [employer], [facility]. [phone] Active rOPINIRole HCl 2 MG Oral [...] mRNA, LNP-s, No Pre serve, 2-Dose Series (OBOOK) 12/29/2020,12/18/2020 COVID-19, LNP-s, No Preserve , Navarro-sucrose, Ages 12+ (Pfizer) 2022,10/01/2021 Pneumococcal Conjugate Vacci ne, 20-valent ([id number]) 03/12/2022 Pneumococcal Polysaccharide PPV23 (Pneumovax) 08/22/2009,06/15/2006 Seasonal [...] Visit Family Medicine Galdino Andujar, DO [address] [place] [address] 06/23/2022 Office Visit [facility], Pharmacist [address] [address] 07/22/2022 Office Visit Dermatology Micki Hernández MD [address] [place] [address] 07/28/2022 Imaging Radiology 07/28/2022 PulmDiagnostic Pulmonary Function West, [address] [facility] [place] [address] 08/05/2022 Nurse Only [facility], Nurse Annual Wellness Visit [address] [address] 08/25/2022 Office Visit Pulmonary Nikita Sanchez MD [address] [place] [address] 09/13/2022 Office Visit Family Medicine Galdino Andujar, [address] [place] [address] Scheduled Procedures Name Priority Associated Diagnoses Date/Ti [...] Additional history exists CKD HGB USE SMARTSET 82282 01/07/202301/07, 01/07/2022, 12/26/2021, Additional history exists CKD PHOS USE SMARTSET 68365 01/07/202312/25, 03/12/2021, 11/17/2020, Additional history exists DIABETES-FOOT EXAM 01/07/2023 01/07/2022, 0 01/14/2021, 11/07/2019, Additional history exists TSH FOR THYROID MEDICATION MONITORING YEARLY 01/07/2023 01/07/2022, 12/25/2020, 05/06/2020, Additional history exists DIABETES-EYE EXAM 05/24/2023 05/24/2022, , 04/07/2020, Additional history exists Depression Screening, Annual for Pts 12 and Over 06/09/2023 06/09/2022, 06/12/2018 Mammogram 02/12/2024 02/11/2022, 01/0 02/2021, 07/10/2019, [...] Documents on File Type Date Recorded Patient Gravity Manager Expl anation Advanced Directive Advanced Directive [...] Camp Other Health Care Hayden r of Legal Adviser Princess [place] Other Health Care Pow er of Legal Adviser Care Teams Manager Six Sigma Relationship Specialty Start Date End Date Galdino Andujar, DO [address] [place] [address] PCP - General Internal Medicine 01/07/22 documented as of this encounter
--- OUTSIDE RECORDS SUMMARY | 2023-06-01 04:33 | External Medical Summary | Summary of Care ---
Author Name Unknown Organization [place] [address] Care Team Providers Care Marketing Intelligence Manager Name Role Phone Galdino Andujar DO Primary Care Provider [phone] Reason for Visit * Reason Onset Date Comments Information 06/16/2022 Encounter Details Date Type Department Care Team Description 06/16/2022 Telephone Family Practice 65 [facility] [place] [address] [place] [address] Galdino Andujar DO [address] [place] [address] Information Allergies Active Allergy Reactions Severity Noted Date Comments Codeine 07/08/2014 hallucination Pollen 05/18/2019 Heparin 09/04/2009 Heparin Induced Thrombocytopenia Hydrocodone Neuro complications (Please comment) 07/28/2020 Empagliflozin Other (Please comment) Medium 05/17/2018 3 yeast infections in 6 weeks after starting Morphine And Related 09/16/1997 Hallucinations Tetanus Toxoid Other (Please comment) 06/15/2011 Passed out documented as of this encounter (statuses as of 06/16/2022) Medications Medication Sig Dispensed Refills Start Date [...] 90 Cap 3 12/18/2019 Active DIURETIC TITRATION PLANIndications:Learning Officer 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 1 Each 0 04/08/2020 Active Blood Glucose Monitoring Suppl (TencentUCH ULTRA 2) w/Device KIT Use to test [...] of 7.0%-8.0% ([facility]) Inject under the skin 60 Units in [...] % Nasal Solution Administer into nostril 1 [place] in the morning AND 1 [place] before bedtime. 30 mL 12 02/18/2022 Active Nortriptyline HCl 50 MG Oral Capsule (Pamelor)Indications :Fibromyalgia TAKE ONE CAPSULE BY MOUTH AT BEDTIME 100 Capsule 3 04/01/2022 Active Dexcom G6 Pharmacy Specialist Device Use as directed . Supplied by [employer], [employer]. [phone] Active Dexcom G6 Sensor Use as directed . Change every 10 days Supplied by [employer], [facility]. [phone] Active Dexcom G6 Transmitter Use as directed . Change every 90 days Supplied by [employer], [facility]. [phone] Active rOPINIRole HCl 2 MG Oral [...] for 7 days. 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 Atherosclerosis of [place] coronary arter y without angina pectoris [...] 03/25/2016 Fibromyalgia 02/02/2016 Abnormality of gait 02/02/[address] 08/19/2014 History of pulmonary [...] as of this encounter (statuses as of 06/16/2022) Resolved Problems Problem Noted Date Resolved Date [...] as of this encounter (statuses as of 06/16/2022) Immunizations Name Administration Dates Next Due COVID-19 mRNA, LNP-s, No Pre serve, 2-Dose Series (SetuServ) 12/29/2020,12/18/2020 COVID-19, LNP-s, No Preserve , Navarro-sucrose, Ages 12+ (Pfizer) 2022,10/01/2021 Pneumococcal Conjugate Vacci ne, 20-valent ([id number]) 03/12/2022 Pneumococcal Polysaccharide PPV23 (Pneumovax) 08/22/2009,06/15/2006 Seasonal [...] Telephone Encounter - Galdino Andujar DO - 06/16/2022 2:20 PM EDT Noted * Telephone Encounter - ELISSA Whitten - 06/16/2022 10:35 AM EDT Because pt is no longer homebound, [facility] will no longer be seeing her. Pt would like to go to PT at [facility]. [email or web address], 06/16/22. documented in this encounter Plan of Treatment Upcoming Encounters Date Type Specialty Care Team Description 06/18/2022 Office Visit [facility] [address] 06/23/2022 Office Visit [facility], Pharmacist [address] [facility] [address] 07/22/2022 Office Visit Dermatology Micki Hernández MD [address] [place] [facility] [place] [address] 07/28/2022 Imaging Radiology 07/28/2022 PulmDiagnostic Pulmonary Function [place], [address] [place] [address] 08/05/2022 Nurse Only Ancillary [place], Nurse Annual Wellness Visit [address] [place] [address] 08/25/2022 Office Visit Pulmonary Nikita Sanchez MD [address] [place], [place] [address] 09/13/2022 Office Visit Family Medicine Galdino Andujar, [address] [place] [address] Scheduled Procedures Name Priority Associated Diagnoses Date/Ti [...] Additional history exists CKD HGB USE SMARTSET 86586 01/07/2023 04/14 /2022, 01/07/2022, 12/26/2021, Additional history exists CKD PHOS USE SMARTSET 34123 01/07/202312/25, 03/12/2021, 11/17/2020, Additional history exists DIABETES-FOOT [...] Documents on File Type Date Recorded Patient Tattoo Identifier Expl anation Advanced Directive Advanced Directive Advanced [...] Camp Other Health Care Hayden r of Bosom Presser Princess [place] Other Health Care Pow er of Bosom Presser Care Teams Marketing Intelligence Manager Relationship Specialty Start Date End Date Galdino Andujar, DO [address] [place] [address] PCP - General Internal Medicine 01/07/22 documented as of this encounter
--- OUTSIDE RECORDS SUMMARY | 2023-06-01 04:33 | External Medical Summary | Summary of Care ---
Author Name Unknown Organization [place] [address] Care Team Providers Care School Cleaner Name Role Phone Galdino Andujar DO Primary Care Provider [phone] Encounter Details Date Type Department Care Team Description 06/11/2022 Scan Encounter Family Practice 65 [facility] [place] [address] [place] [phone] Galdino Andujar DO [address] [place] [address] <No scans attached> Allergies Active Allergy Reactions [...] 90 Cap 3 12/18/2019 Active DIURETIC TITRATION PLANIndications:Doctor Chiropractic 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 1 Each 0 04/08/2020 Active Blood Glucose Monitoring Suppl (A Green Night's SleepUCH ULTRA 2) w/Device KIT Use to test [...] % Nasal Solution Administer into nostril 1 [place] in the morning AND 1 [place] before bedtime. 30 mL 12 02/18/2022 Active Nortriptyline HCl 50 MG Oral Capsule (Pamelor)Indications :Fibromyalgia TAKE ONE CAPSULE BY MOUTH AT BEDTIME 100 Capsule 3 04/01/2022 Active Dexcom G6 Foundry Tender Device Use as directed . Supplied by [facility] [facility]. [phone] Active Dexcom G6 Sensor Use as directed . Change every 10 days Supplied by [facility] [facility], [facility]. [phone] Active Dexcom G6 Transmitter Use as directed . Change every 90 days Supplied by [employer] [facility], [facility]. [phone] Active rOPINIRole HCl 2 MG Oral [...] (HIT) 0 12/31/2021 Atherosclerosis of [place] coronary arter y without angina pectoris 12/31/2021 [...] mRNA, LNP-s, No Pre serve, 2-Dose Series (Screenleap) 12/29/2020,12/18/2020 COVID-19, LNP-s, No Preserve , Navarro-sucrose, Ages 12+ (Pfizer) 2022,10/01/2021 Pneumococcal Conjugate Vacci ne, 20-valent ([id number]) 03/12/2022 Pneumococcal Polysaccharide PPV23 (Pneumovax) 08/22/2009,06/15/2006 Seasonal [...] 06/14/2022 Office Visit Family Medicine Galdino Andujar, DO [address] [place] [address] 06/23/2022 Office Visit Family Medicine [place], Pharmacist 65 [facility] [address] [facility], [place] [address] 07/22/2022 Office Visit Dermatology Micki Hernández MD [address] [place] [address] 07/28/2022 Imaging Radiology 07/28/2022 PulmDiagnostic Pulmonary Function [place], [address] [place] [address] 08/05/2022 Nurse Only Ancillary [employer], Nurse Annual Wellness Visit [address] [place] [address] 08/25/2022 Office Visit Pulmonary Nikita Sanchez MD [address] [place] [address] 09/13/2022 Office Visit Family Medicine Galdino Andujar, DO [address] [place] [address] Scheduled Procedures Name Priority Associated Diagnoses Date/Ti [...] Additional history exists CKD HGB USE SMARTSET 05271 01/07/202301/07, 01/07/2022, 12/26/2021, Additional history exists CKD PHOS USE SMARTSET 84063 01/07/2023 0412/2021, 03/12/2021, 11/17/2020, Additional history exists [...] Documents on File Type Date Recorded Patient Principal Technologist Expl anation Advanced Directive Advanced Directive Advanced [...] Camp Other Health Care Hayden r of Woods Superintendent Princess [place] Other Health Care Pow er of Woods Superintendent Care Teams School Cleaner Relationship Specialty Start Date End Date Galdino Andujar, DO [address] [place] [address] PCP - General Internal Medicine 01/07/22 documented as of this encounter
--- OUTSIDE RECORDS SUMMARY | 2023-06-01 04:33 | External Medical Summary ---
Author Name Unknown Address Unknown Organization K01:[facility] [place] [address] [place] [address] Laboratory Report Ordering Provider Test Date Status JAG SHULTZ 06/18/2022 15:21:41 Final Observation Date Value Abnormality Reference (Units ) Status BUN 06/18/2022 15:21:41 24 Above high normal 6-20 (mg/dL) Final Creatinine 06/18/2022 15:21:41 1.4 Above high normal 0.5-1.0 (mg/dL) Final Glomerular filtration rate/1.73 sq M.predicted [Volume Rate/Area] in Serum, Plasma or Blood by Creatinine-based formula (CKD-EPI) 06/18/2022 15:21:41 43 Below low normal >=60 (mL/min) Final Performing Location [facility] [place] [address] [place] [address]
--- OUTSIDE RECORDS SUMMARY | 2023-06-01 04:33 | External Medical Summary ---
Author Name Unknown Address Unknown Organization K01:[facility] - [address] [place] [address] Laboratory Report Ordering Provider Test Date Status JAG SHULTZ 06/18/2022 15:21:41 Final Observation Date Value Abnormality Reference (Units ) Status Magnesium 06/18/2022 15:21:41 1.6 1.5-2.6 (m g/dL) Final Performing Location [facility] - [address] [place] [address]
--- OUTSIDE RECORDS SUMMARY | 2023-06-01 04:34 | External Medical Summary | Summary of Care ---
Author Name Unknown Organization [place] [address] Care Team Providers Care Mail Processing Clerk Name Role Phone Galdino Andujar DO Primary Care Provider [phone] Reason for Visit * Reason Onset Date Comments COVID-19 Screening 06/11/2022 Encounter Details Date Type Department Care Team Description 06/11/2022 Telephone COVID19 Screening [facility] DEPT CLOSED 07/07/21 [address] [place] [address] [id number], Automated Provider COVID-19 Screening Allergies Active Allergy Reactions Severity Noted Date Comments Codeine 07/08/2014 hallucination Pollen 05/18/2019 Heparin 09/04/2009 Heparin Induced Thrombocytopenia Hydrocodone Neuro complications (Please comment) 07/28/2020 Empagliflozin Other (Please comment) Medium 05/17/2018 3 yeast infections in 6 weeks after starting Morphine And Related 09/16/1997 Hallucinations Tetanus Toxoid Other (Please comment) 06/15/2011 Passed out documented as of this encounter (statuses as of 06/12/2022) Medications Medication Sig Dispensed Refills Start Date [...] 90 Cap 3 12/18/2019 Active DIURETIC TITRATION PLANIndications:Chief Investigator 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 1 Each 0 04/08/2020 Active Blood Glucose Monitoring Suppl (NightOwlUCH ULTRA 2) w/Device KIT Use to test [...] % Nasal Solution Administer into nostril 1 Pheba in the morning AND 1 Pheba before bedtime. 30 mL 12 02/18/2022 Active Nortriptyline HCl 50 MG Oral Capsule (Pamelor)Indications :Fibromyalgia TAKE ONE CAPSULE BY MOUTH AT BEDTIME 100 Capsule 3 04/01/2022 Active Dexcom G6 Odd Job Worker Device Use as directed . Supplied by [employer], [employer]. [phone] Active Dexcom G6 Sensor Use as directed . Change every 10 days Supplied by [employer], [facility]. [phone] Active Dexcom G6 Transmitter Use as directed . Change every 90 days Supplied by [employer], [facility]. [phone] Active rOPINIRole HCl 2 MG Oral [...] as of this encounter (statuses as of 06/12/2022) Active Problems Problem Noted Date Encounter for [...] 03/25/2016 Fibromyalgia 02/02/2016 Abnormality of gait 02/02/[address] [place] filter in [address] 08/19/2014 History of [...] as of this encounter (statuses as of 06/12/2022) Resolved Problems Problem Noted Date Resolved Date [...] as of this encounter (statuses as of 06/12/2022) Immunizations Name Administration Dates Next Due COVID-19 mRNA, LNP-s, No Pre serve, 2-Dose Series (M-SIX) 12/29/2020,12/18/2020 COVID-19, LNP-s, No Preserve , Navarro-sucrose, Ages 12+ (Pfizer) 2022,10/01/2021 Pneumococcal Conjugate Vacci ne, 20-valent ([id number]) 03/12/2022 Pneumococcal Polysaccharide PPV23 (Pneumovax) 08/22/2009,06/15/2006 Seasonal [...] Notes * Telephone Encounter - Covid Results [facility] - 06/12/2022 1:47 AM EDT Outreach Attempts Jun 11 2022 9:02AM - Fail to reach patient IVR Message: Unsuccessful contact, no education provided documented in this encounter Plan of Treatment Upcoming Encounters Date Type Specialty Care Team Description 06/14/2022 Office Visit Family Medicine Galdino Andujar, DO [address] [place] [address] 06/23/2022 Office Visit [facility] Medicine [place], Pharmacist [address] [facility] [address] [place] [address] 07/22/2022 Office Visit Dermatology Micki Hernández MD [address] [place] [address], [place] [address] 07/28/2022 Imaging Radiology 07/28/2022 PulmDiagnostic Pulmonary Function [place], [address] [place] [address] 08/05/2022 Nurse Only [employer]illary [employer], Nurse Annual Wellness Visit [address] [place] [address] 08/25/2022 Office Visit Pulmonary Nikita Sanchez MD [address] [place] [place] [address] 09/13/2022 Office Visit Family Medicine Galdino Andujar, DO [address] [place] [address] Scheduled Procedures Name Priority Associated Diagnoses Date/Ti [...] Additional history exists CKD HGB USE SMARTSET 53728 01/07/202301/07, 01/07/2022, 12/26/2021, Additional history exists CKD PHOS USE SMARTSET 36981 01/07/202312/25, 03/12/2021, 11/17/2020, Additional history exists DIABETES-FOOT [...] Documents on File Type Date Recorded Patient Pizza Maker Expl anation Advanced Directive Advanced Directive Advanced [...] [place] Other Health Care Hayden r of Bilingual Customer Service Specialist Princess Allen Other Health Care Pow er of Bilingual Customer Service Specialist Care Teams Mail Processing Clerk Relationship Specialty Start Date End Date Galdino Andujar, DO [address] [place] [address] PCP - General Internal Medicine 01/07/22 documented as of this encounter
--- OUTSIDE RECORDS SUMMARY | 2023-06-01 04:34 | External Medical Summary | Summary of Care ---
Author Name Unknown Organization [place] [address] Care Team Providers Care Jewelry Store Manager Name Role Phone Galdino Andujar DO Primary Care Provider [phone] Reason for Visit * Reason Comments Acute Encounter Details Date Type Department Care Team Description 06/09/2022 Office Visit Family Practice [address] [place] [address] [place] [phone] Galdino Andujar DO [address] [place] [address] Acute cough*; SOB (shortness of breath); Chronic diastolic congestive heart failure (HCC); Mild episode of recurrent major depressive disorder ([facility]); 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, NYHA class 1 and CKD stage 3 ([facility]); Type 2 diabetes mellitus with hemoglobin A1c goal of less than 8.0% ([facility]); Recurrent deep vein thrombosis (DVT) of both lower extremities ([facility]); Dyslipidemia; ELLIE (generalized anxiety disorder); Fibromyalgia; Gastroesophageal reflux disease with esophagitis without hemorrhage; Spinal stenosis of lumbar region without neurogenic claudication; Heparin induced thrombocytopenia (HIT) ([facility]); Atherosclerosis of bois forte coronary artery of bo[place] forte heart without angina pectoris; Type 2 diabetes mellitus with stage 3b chronic kidney disease, with long-term current use of insulin ([facility]) Allergies Active Allergy Reactions Severity Noted Date Comments Codeine 07/08/2014 hallucination Pollen 05/18/2019 Heparin 09/04/2009 Heparin Induced Thrombocytopenia Hydrocodone Neuro complications (Please comment) 07/28/2020 Empagliflozin Other (Please comment) Medium 05/17/2018 3 yeast infections in 6 weeks after starting Morphine And Related 09/16/1997 Hallucinations Tetanus Toxoid Other (Please comment) 06/15/2011 Passed out documented as of this encounter (statuses as of 06/10/2022) Medications Medication Sig Dispensed Refills Start Date [...] 90 Cap 3 12/18/2019 Active DIURETIC TITRATION PLANIndications:Military Analyst 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 1 Each 0 04/08/2020 Active Blood Glucose Monitoring Suppl (USMD ULTRA 2) w/Device KIT Use to test [...] hemoglobin A1c goal of 7.0%-8.0% ([facility]) Inject 40 units with meals + sliding scale 1 units for every 25 units BG > 150. 121 mL 3 11/04/2021 Active Tresiba FlexTouch 100 UNIT/ML Subcutaneous Solution Pen-injector (Insulin Degludec)Indications :Type 2 diabetes mellitus with hemoglobin A1c goal of 7.0%-8.0% ([facility]) Inject under the skin 60 Units [...] % Nasal Solution Administer into nostril 1 [place] in the morning AND 1 [place] before bedtime. 30 mL 12 02/18/2022 Active Nortriptyline HCl 50 MG Oral Capsule (Pamelor)Indications :Fibromyalgia TAKE ONE CAPSULE BY MOUTH AT BEDTIME 100 Capsule 3 04/01/2022 Active Dexcom G6 Shape Hand Device Use as directed . Supplied by [employer], [employer]. [phone] Active Dexcom G6 Sensor Use as directed . Change every 10 days Supplied by [employer]. [phone] Active Dexcom G6 Transmitter Use as directed . Change every 90 days Supplied by [employer], [employer]. [phone] 0 Active rOPINIRole HCl 2 MG Oral [...] as of this encounter (statuses as of 06/10/2022) Active Problems Problem Noted Date Encounter for [...] 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/31/2021 Atherosclerosis of bois [place]te coronary arter y without angina pectoris 12/31/2021 [...] as of this encounter (statuses as of 06/10/2022) Resolved Problems Problem Noted Date Resolved Date [...] as of this encounter (statuses as of 06/10/2022) Immunizations Name Administration Dates Next Due COVID-19 mRNA, LNP-s, No Pre serve, 2-Dose Series ([email or web address]) 12/29/2020,12/18/2020 COVID-19, LNP-s, No Preserve , Navarro-sucrose, Ages 12+ (Pfizer) 2022,10/01/2021 Pneumococcal Conjugate Vacci ne, 20-valent ([id number]) 03/12/2022 Pneumococcal Polysaccharide PPV23 (Pneumovax) 08/22/2009,06/15/2006 Seasonal [...] Sign Reading Time Taken Comments Blood Pressure 100/64 06/09/2022 4:43 PM EDT Pulse 100 06/09/2022 4:43 PM EDT Temperature 36.8 C (98.3 F) 06/09/2022 4:43 PM ED T Respiratory Rate 20 06/09/2022 4:43 PM EDT Oxygen Saturation 90% 06/09/2022 4:43 PM EDT on 3 LPM Inhaled Oxygen Concentration - - Weight 154.3 kg (340 lb 1.6 oz) 06/09/2022 4:43 PM EDT Height 165.1 cm (5' 5") 06/09/2022 4:43 PM EDT Body Mass Index 56.6 06/09/2022 4:43 PM EDT documented in this encounter Progress Notes * Galdino Andujar, DO - 06/10/2022 8:34 AM EDT SUBJECTIVE: Stephanie Camp is a 67 year old female. Chief Complaint Patient presents with Acute HPI: Patient is a 67 year old female with a history of DM type II, CKD Stage III, Diastolic CHF, chronichypoxic respiratory failure, HTN, Recurrent DVT, IVC filter, Hyperlipidemia, statin intolerance, GERD, Lumbar Disc DIsease, restless leg syndrome, Sleep Apnea on CPAP, Heparin Induced thrombocytopenia, and Ambulatory Dysfunction that is seen for shortness of breath. The patient has chronic shortness of breath that has worsened over the last 2 weeks. Productive cough is present as well. No chest pain is present. Weight is stable and appetite is good. Patient Active Problem List Diagnosis Code Dyslipidemia [...] episode of recurrent major depressive disorder (HCC) F33.0 Lumbar radiculopathy M54.16 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, NYHA class 1 and CKD stage 3 (HCC) I13.0, I50.30, N18.30 Hyperparathyroidism, secondary renal ([facility]) N25.81 Vasculitis ([facility]) I77.6 Primary osteoarthritis of left knee M17.12 Spinal stenosis of lumbar region without neurogenic claudication M48.061 Type 2 diabetes mellitus with diabetic chronic kidney disease ([facility]) E11.22 Heparin induced thrombocytopenia (HIT) ([facility]) D75.82 Atherosclerosis of bois [place]te coronary artery without angina pectoris I25.10 Carotid artery stenosis, asymptomatic, right I65.21 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 Encounter for long-term (current) use of other medications Z79.899 Type 2 diabetes mellitus with stage 3b chronic kidney disease ([facility]) E11.22, N18.32 Type 2 diabetes mellitus with hemoglobin A1c goal of less than 8.0% ([facility]) E11.9 Recurrent deep vein thrombosis (DVT) of both lower extremities ([facility]) I82.403 Chronic hypoxemic respiratory failure ([facility]) J96.11 Current Outpatient Medications Medication Sig Dispense Refill docusate sodium (STOOL SOFTENER) 100 MG Capsule Take 100 mg by mouth 2 times a day as needed for Constipation. ONETOUCH DELICA LANCETS 33G MISC Check blood sugars 3-4 times daily 180 Each 5 oxygen GAS 2 lpm continuous omeprazole (PRILOSEC) 20 MG CPDR Take 1 Cap by mouth daily. 90 Cap 3 Acetaminophen 500 MG Oral Tablet (Acetaminophen Extra Strength) Take 500 mg by mouth every 6 hours as needed. Meclizine HCl 12.5 MG Oral Tablet (Antivert) Take 1 Tab by mouth 3 times a day as needed for Dizziness. 30 Tab 1 Nerve Pain Relief Sublingual Tablet Sublingual Take by mouth . CPAP every night at bedtime. Potassium Chloride Ayleen ER 10 MEQ Oral Tablet Extended Release Take 10 mEq by mouth every otherday. Cholecalciferol 125 MCG (5000 UT) Oral Capsule Take 1,000 Units by mouth daily. Furosemide 40 MG Oral Tablet (Lasix) Take by mouth 0.5 Tablets in the morning AND 0.5 Tablets before bedtime. May take an additional 20 mg 2 to 3 days per week as needed for worsening swelling. 135 Tablet 0 Cyclobenzaprine HCl 10 MG Oral Tablet (Flexeril) [...] breakfast or other meds). 90 Tablet 3 Dicyclomine HCl 20 MG Oral Tablet [...] % Nasal Solution Administer into nostril 1 [place] in the morning AND 1 [place] before bedtime. 30 mL 12 Nortriptyline HCl [...] 1 Tablet before bedtime. 100 Tablet 3 Doxycycline Hyclate 100 MG Oral Capsule Take by mouth 1 Capsule in the morning AND 1 Capsule before bedtime. Do all this for 7 days. Take for 7 days. 14 Capsule 0 predniSONE 20 MG Oral Tablet (Deltasone) Take by mouth 1 Tablet in the morning for 5 days. 5 Tablet 0 ACCU-CHEK SOFTCLIX LANCETS MISC Test blood sugar three or four times daily as directed 400 Each3 DIURETIC TITRATION PLAN If no improvement on day 3, contact heart failure managing provider. 1 Each 0 Blood Glucose Monitoring Suppl (NeemaTOUCH ULTRA 2) w/Device KIT Use to test BG values 1 Kit 0 metOLazone 2.5 MG Oral Tablet (Zaroxolyn) Take 2.5 mg by mouth daily as needed. Do not take unless instructed by provider BD Pen Needle Short U/F 31G X 8 MM (Insulin Pen Needle) use five times daily 500 Each 3 OneTouch Ultra Blue In Vitro Strip (Glucose Blood) Check sugars 3-4 times daily, E11.9 400 Strip 3 Ondansetron HCl 4 MG Oral Tablet Take by mouth 1 Tablet every 6 hours as needed for Nausea. 90 Tablet 6 Dexcom G6 Shape Hand Device Use as directed . Supplied by [employer], [employer]. [phone] Dexcom G6 Sensor Use as directed . Change every 10 days Supplied by [employer]. [phone] Dexcom G6 Transmitter Use as directed . Change every 90 days Supplied by [employer]. [phone] Current Facility-Administered Medications Medication Dose Route Frequency Provider Last Rate Last Admin Albuterol Sulfate (Proventil) (2.5 MG/3ML) 0.083% inhalation solution 2.5 mg 2.5 mg Nebulizer Q4H PRN TATIANA Negrete The patient's medication list was reviewed and updated as needed. Past Medical History: Diagnosis Date ELSIE (acute kidney injury) ([facility]) 06/12/2018 Allergic rhinitis due to other allergen Chronic hypoxemic respiratory failure ([facility]) 01/07/2022 Diverticulosis of colon 01/28/2006 Essential hypertension with goal blood pressure less than 140/90 02/22/2014 ELLIE (generalized anxiety disorder) 09/13/2009 [address] filter in place 08/19/2014 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HCC) 08/22/2009 History of pulmonary embolus (PE) 07/16/2014 HTN, goal below 140/90 Impetigo 09/27/2018 Obesity, BMI not known Perforation of intestine ([facility]) 1996 COLON -- 1996 Pneumonia in aspergillosis(484.6) 09/14/2009 Recurrent deep vein thrombosis (DVT) of both lower extremities ([facility]) 01/07/2022 Sleep apnea, obstructive Spinal stenosis of lumbar region without neurogenic claudication 07/15/2020 Spontaneous pneumothorax 09/14/2009 Statin intolerance 07/16/2014 Type 2 diabetes mellitus with hemoglobin A1c goal of less than 8.0% ([facility]) 01/07/2022 Past Surgical History: Procedure Laterality Date ARTHROPLASTY KNEE TOTAL Right 07/24/14 R COLONOSCOPY, DIAGNOSTIC (RECTUM) 02/18/2016 normal, repeat 10 yrs/[facility] COLONOSCOPY, GI REFERRAL OP 01/28/06 diverticulosis--repeat 10 years INCISION OF WINDP[place], PLANNED 06/03/2011 TRACHEOSTOMY PLANNED performed by DANNY HOLDER at [facility] INJECT DX/THER SUBSTANCE INTERLAMINAR LUMBAR/SACRAL W IMAGE GUIDE 05/26/2020 INJECTION SPINE LUMBAR OR SACRAL performed [facility] Raj Ahn, DO [facility] INJECT DX/THER SUBSTANCE INTERLAMINAR LUMBAR/SACRAL W IMAGE GUIDE 05/14/2021 INJECTION SPINE LUMBAR OR SACRAL performed by Raj Ahn, DO at OR [facility] INJECT DX/THER SUBSTANCE INTERLAMINAR LUMBAR/SACRAL W IMAGE GUIDE 08/13/2021 INJECTION SPINE LUMBAR OR SACRAL performed by Raj Ahn, DO at OR [facility] ARTHROSCOPY/DEBRIDEMENT 07/[address] PERMANENT GASTROSTOMY TUBE 09/06/09 GASTROSTOMY WITH CONSTUCTION GASTRIC TUBE performed by AMADOU NUNEZ at [facility] REMOVAL OF THYROID GLAND 06/15/2011 THYROIDECTOMY INCLUDING SUBSTERNAL THYROID CERVICAL APPROACH performed by DANNY HOLDER at OR [facility] [place] REMOVE GALLBLADDER 09/06/09 CHOLECYSTECTOMY performed by AMADOU NUNEZ at OR [facility] [place] REPAIR RECURRENT INCISIONAL HERNIA 1998 REVISION OF COLOSTOMY, SIMPLE 1998 SACROILIAC JOINT INJECT W/GUIDANCE 07/28/2020 INJECTION SACROILIAC JOINT performed by Raj Ahn DO at OR [facility] SACROILIAC JOINT INJECT W/GUIDANCE 03/03/2022 INJECTION SACROILIAC JOINT performed by Raj Ahn DO at OR [facility] SUTURE, LARGE INTESTINE W/COLOSTOMY 1996 perforation R colon with colostomy VENA CAVA FILTER/LIGATION/CLIP 08/19/09 Frank filter placement through the right femoral 08/19/[address] Lerma at [facility] Review of patient's allergies indicates: [...] change, fever and unexpected weight change. HENT: Positive for congestion. Negative for sore throat and trouble swallowing. Respiratory: Positive for cough and shortness of breath. Negative for wheezing. Cardiovascular: Positive for leg swelling. Negative for chest pain and palpitations. Gastrointestinal: Negative for abdominal pain, blood in stool, constipation, diarrhea, nausea and vomiting. Genitourinary: Negative for dysuria and hematuria. Neurological: Negative for dizziness, syncope and headaches. Psychiatric/Behavioral: Negative for confusion, decreased concentration and sleep disturbance. OBJECTIVE: BP 100/64 | Pulse 100 | Temp 36.8 C (98.3 F) (Tympanic) | Resp 20 | Ht 1.651 m (5' 5") | Wt (!)154.3 kg (340 lb 1.6 oz) | LMP 03/11/2003 | SpO2 90% Comment: on 3 LPM | BMI 56.60 kg/m | BSA 2.66 m Physical Exam Vitals and nursing note reviewed. Constitutional: General: She is not in acute distress. Appearance: She is not toxic-appearing. HENT: Head: Normocephalic and atraumatic. Cardiovascular: Rate and Rhythm: Normal rate and regular rhythm. Heart sounds: Normal heart sounds. No murmur heard. No gallop. Pulmonary: Effort: Pulmonary effort is normal. Breath sounds: Wheezing present. No rhonchi or rales. Abdominal: General: Bowel sounds [...] Content: Thought content normal. PLAN AND ASSESSMENT: Acute cough (Primary) - SARS-COV-2 (COVID-19), NAAT - Doxycycline Hyclate 100 MG Oral Capsule; Take by mouth 1 Capsule in the morning AND 1 Capsule before bedtime. Do all this for 7 days. Take for 7 days. - predniSONE 20 MG Oral Tablet (Deltasone); Take by mouth 1 Tablet in the morning for 5 days. - COMPREHENSIVE METABOLIC PANEL; Future; Expected date: 06/09/2022 - CBC WITH WBC DIFFERENTIAL; Future; Expected date: 06/09/2022 COPD exacerbation SOB (shortness of breath) - SARS-COV-2 (COVID-19), NAAT - Doxycycline Hyclate 100 MG Oral Capsule; Take by mouth 1 Capsule in the morning AND 1 Capsule before bedtime. Do all this for 7 days. Take for 7 days. - predniSONE 20 MG Oral Tablet (Deltasone); Take by mouth 1 Tablet in the morning for 5 days. - COMPREHENSIVE METABOLIC PANEL; Future; Expected date: 06/09/2022 - CBC WITH WBC DIFFERENTIAL; Future; Expected date: 06/09/2022 Chronic diastolic congestive heart failure (HCC) - BNP (NT-PROBNP); Future; Expected date: 06/09/2022 Continue Furosemide Mild episode of recurrent major depressive disorder (HCC) Continue Duloxetine 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, NYHA class 1 and CKD stage 3 (HCC) Continue FUrosemide and Metolazone Type 2 diabetes mellitus with hemoglobin A1c goal of less than 8.0% (HCC) Continue Metformin, Novolog, Tresiba, and Trulicity Recurrent deep vein thrombosis (DVT) of both lower extremities ([facility]) Continue Apixaban Dyslipidemia ELLIE (generalized anxiety disorder) Fibromyalgia Gastroesophageal reflux disease with esophagitis without hemorrhage Continue Omeprazole Spinal stenosis of lumbar region without neurogenic claudication 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) Atherosclerosis of bois forte coronary artery of bois forte heart without angina pectoris Type 2 diabetes mellitus with stage 3b chronic kidney disease, with long-term current use of insulin (HCC) Follow-up: Return in about 5 days (around 06/14/2022), or if symptoms worsen or fail to improve. | Check-out note: Schedule labs in [place] tomorrow morning Galdino Andujar DO 8:34 AM 06/10/2022 documented in this encounter Nursing Notes * Shira Gross LPN - 06/09/2022 4:42 PM EDT Problems with cough and sob. documented in this encounter Plan of Treatment Upcoming Encounters Date Type Specialty Care Team Description 06/10/2022 Laboratory Laboratory [facility] [address] [place] [address] 06/14/2022 Office Visit Family Medicine Galdino Andujar DO [address] [facility], [place] [address] 06/23/2022 Office Visit [facility], Pharmacist [address], [place] [address] 07/22/2022 Office Visit Dermatology Micki Hernández MD [address] [place] [address] 07/28/2022 Imaging Radiology 07/28/2022 PulmDiagnostic Pulmonary [facility] [place], [address] [facility] [place] [address] 08/05/2022 Nurse Only Ancillary [place], Nurse Annual Wellness Visit [address] [facility] [address] [place] [address] 08/25/2022 Office Visit Pulmonary Nikita Sanchez MD [address] [place] [address] 09/13/2022 Office Visit Family Medicine Galdino Andujar DO [address] [place] [address] Scheduled Orders Name Type Priority Associated Diagnoses Orde r Schedule BNP (NT-PROBNP) Lab Routine Chronic diastolic congestive heart failure (HCC) Expected: 06/09/2022 (Approximate), Expires: 06/09/2023 COMPREHENSIVE METABOLIC PANEL Lab Routine Acute cough SOB (shortness of breath) Expected: 06/09/2022 (Approximate), Expires: 06/09/2023 CBC WITH WBC DIFFERENTIAL Lab Routine Acute cough SOB (shortness of breath) Expected: 06/09/2022 (Approximate), Expires: 06/09/2023 Scheduled Procedures Name Priority Associated Diagnoses Date/Ti [...] Additional history exists CKD HGB USE SMARTSET 64980 01/07/202301/07, 01/07/2022, 12/26/2021, Additional history exists CKD PHOS USE SMARTSET 96868 01/07/202312/25, 03/12/2021, 11/17/2020, Additional history exists DIABETES-FOOT [...] Procedure Name Priority Date/Time Associated Diagnosis Comments SARS-COV-2 (COVID-19), NAAT Routine 06/09/2022 4:51 PM EDT Acute cough SOB (shortness of breath) documented in this encounter Results * SARS-COV-2 (COVID-19), NAAT (06/09/2022 4:51 PM EDT) SARS-CoV-2 (COVID-19) Result Negative Comment: 2019 Novel Coronavirus not detected. This automated test was developed and its performance characteristics determined by [facility]. It has not been cleared or approved by the U.S. Food and Drug Administration (FDA). FDA does not require this test to go thru premarket FDA review. This test is used for clinical purposes. It should not be regarded as investigational or for research. This laboratory is certified under the Clinical Laboratory Improvement Amendments (CLIA) as qualified to perform high complexity clinical laboratory testing. This test is a nucleic acid amplification test (NAAT), a reverse transcriptase polymerase chain reaction (RT-PCR) test, or a Centers for Disease Control-acceptable equivalent. The test is performed in a high complexity Clinical Laboratory Improvement Amendments-(CLIA) certified laboratory. The test is acceptable for SARS-CoV-2 diagnosis, surveillance, and travel within the [place] and to most countries. Please check with local testing authorities about requirements before travel. Negative LABORATORY [facility] [place] Specimen Upper Respiratory - Swab spe cimen from nasal mid-turbinate (specimen) LABORATORY [facility] [place] [address] [place] [address] documented in this encounter Visit Diagnoses Diagnosis Acute cough- Primary SOB (shortness of breath) Shortness of breath [...] extremities (HCC) Dyslipidemia Other and unspecified hyperlipidemia ELLIE (generalized anxiety disorder) Generalized anxiety disorder Fibromyalgia Mylagia and myositis, unspecified Gastroesophageal reflux disease with esophagitis without hemorrhage Spinal stenosis of lumbar region without neurogenic claudication Spinal stenosis, lumbar region, without neurogenic claudication 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) 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HIT) Atherosclerosis of bois forte coronary artery of bois forte heart without angina pectoris Type 2 diabetes mellitus with stage 3b chronic kidney disease, with long-term current use of insulin (HCC) documented in this encounter Advance Directives Documents on File Type Date Recorded Patient Embroidery Machine Operator Expl anation Advanced Directive Advanced Directive [...] Camp Other Health Care Hayden r of Plate Glass Installer Helper Princess Allen Other Health Care Pow er of Plate Glass Installer Helper Care Teams Jewelry Store Manager Relationship Specialty Start Date End Date Galdino Andujar, DO [address] [facility] [place] [address] PCP - General Internal Medicine 01/07/22 documented as of this encounter
--- OUTSIDE RECORDS SUMMARY | 2023-06-01 04:34 | External Medical Summary | Summary of Care ---
Author Name Unknown Organization [place] [address] Care Team Providers Care Painter Helper Name Role Phone Galdino Andujar DO Primary Care Provider Reason for Visit * Reason Onset Date Comments Information 06/10/2022 Encounter Details Date Type Department Care Team Description 06/10/2022 Telephone Family Practice 65 [facility] [place], [place] [address] [place] [address] Galdino Andujar DO [address] [place] [address] Information Allergies Active Allergy Reactions [...] 90 Cap 3 12/18/2019 Active DIURETIC TITRATION PLANIndications:Literacy Consultant 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 1 Each 0 04/08/2020 Active Blood Glucose Monitoring Suppl (BirdbackUCH ULTRA 2) w/Device KIT Use to test [...] % Nasal Solution Administer into nostril 1 [place] in the morning AND 1 [place] before bedtime. 30 mL 12 02/18/2022 Active Nortriptyline HCl 50 MG Oral Capsule (Pamelor)Indications :Fibromyalgia TAKE ONE CAPSULE BY MOUTH AT BEDTIME 100 Capsule 3 04/01/2022 Active Dexcom G6 Forensic Technician Device Use as directed . Supplied by [employer], [employer]. [phone] Active Dexcom G6 Sensor Use as directed . Change every 10 days Supplied by [employer], [facility]. [phone] Active Dexcom G6 Transmitter Use as directed . Change every 90 days Supplied by [employer], [facility]. [phone] Active rOPINIRole HCl 2 MG Oral [...] 84%, low 76%, time <89% 6:21 hours, TIYN 47 DHC Nontoxic uninodular goiter 06/16/201108/17 Body [...] mRNA, LNP-s, No Pre serve, 2-Dose Series ([employer]olphin [employer]) 12/29/2020,12/18/2020 COVID-19, LNP-s, No Preserve , Navarro-sucrose, Ages 12+ (Pfizer) 2022,10/01/2021 Pneumococcal Conjugate Vacci ne, 20-valent ([id number]) 03/12/2022 Pneumococcal Polysaccharide PPV23 (Pneumovax) 08/22/2009,06/15/2006 Seasonal [...] Telephone Encounter - Shira Gross LPN - 06/10/2022 8:43 AM EDT Called Stephanie to check status, she is more sob and not feeling well. Advised to go to hospital. Patient is aware and will comply. Offered to call ems vs sibling, patient states she will call her brother to take her. Thank you documented in this encounter Plan of Treatment Upcoming Encounters Date Type Specialty Care Team Description 06/14/2022 Office Visit Family Medicine Galdino Andujar, DO [address] [facility], [place] [address] 06/23/2022 Office Visit [facility], Pharmacist [address] [facility], [place] [address] 07/22/2022 Office Visit Dermatology Micki Hernández MD [address] [facility] [address] 07/28/2022 Imaging Radiology 07/28/2022 PulmDiagnostic Pulmonary Function West, [address] [place] [address] 08/05/2022 Nurse Only [employer], Nurse Annual Wellness Visit [address] [place] [address] 08/25/2022 Office Visit Pulmonary Nikita Sanchez MD [address] [place] [address] 09/13/2022 Office Visit Family Medicine Galdino Andujar, 293 [place] [address] Scheduled Procedures Name Priority Associated Diagnoses Date/Ti [...] Additional history exists CKD HGB USE SMARTSET 13128 01/07/202301/07, 01/07/2022, 12/26/2021, Additional history exists CKD PHOS USE SMARTSET 70937 01/07/202312/25, 03/12/2021, 11/17/2020, Additional history exists DIABETES-FOOT [...] Documents on File Type Date Recorded Patient Clinical Social Work Aide Expl anation Advanced Directive Advanced Directive Advanced [...] Camp Other Health Care Hayden r of Business Development Director Princess Allen Other Health Care Pow er of Business Development Director Care Teams Painter Helper Relationship Specialty Start Date End Date Galdino Andujar, DO [address] [place] [address] PCP - General Internal Medicine 01/07/22 documented as of this encounter
--- OUTSIDE RECORDS SUMMARY | 2023-06-01 04:34 | External Medical Summary | Summary of Care ---
Author Name Unknown Organization [place] [address] Care Team Providers Care Sea Captain Name Role Phone Galdino Andujar DO Primary Care Provider [phone] Reason for Visit * Reason Onset Date Comments Advice 06/09/2022 Encounter Details Date Type Department Care Team Description 06/09/2022 Telephone Family Practice 65 [facility] [place] [address] [place] [address] Galdino Andujar DO [address] [place], [place] [id number] Advice Allergies Active Allergy Reactions Severity Noted Date Comments Codeine 07/08/2014 hallucination Pollen 05/18/2019 Heparin 09/04/2009 Heparin Induced Thrombocytopenia Hydrocodone Neuro complications (Please comment) 07/28/2020 Empagliflozin Other (Please comment) Medium 05/17/2018 3 yeast infections in 6 weeks after starting Morphine And Related 09/16/1997 Hallucinations Tetanus Toxoid Other (Please comment) 06/15/2011 Passed out documented as of this encounter (statuses as of 06/09/2022) Medications Medication Sig Dispensed Refills Start Date [...] 90 Cap 3 12/18/2019 Active DIURETIC TITRATION PLANIndications:Head Up Operator 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 1 Each 0 04/08/2020 Active Blood Glucose Monitoring Suppl (Vickers ElectronicsUCH ULTRA 2) w/Device KIT Use to test [...] goal of 7.0%-8.0% ([facility]) Inject under the skin 60 Units [...] % Nasal Solution Administer into nostril 1 Brea in the morning AND 1 Brea before bedtime. 30 mL 12 02/18/2022 Active Nortriptyline HCl 50 MG Oral Capsule (Pamelor)Indications :Fibromyalgia TAKE ONE CAPSULE BY MOUTH AT BEDTIME 100 Capsule 3 04/01/2022 Active Dexcom G6 Prover Device Use as directed . Supplied by [employer], [employer]. [phone] Active Dexcom G6 Sensor Use as directed . Change every 10 days Supplied by [employer], [employer]. [phone] Active Dexcom G6 Transmitter Use as directed . Change every 90 days Supplied by [employer], [facility]. 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 Atherosclerosis of [place] coronary arter y without angina pectoris 12/31/2021 [...] 03/25/2016 Fibromyalgia 02/02/2016 Abnormality of gait 02/02/[address] [address] 08/19/2014 History of pulmonary [...] as of this encounter (statuses as of 06/09/2022) Resolved Problems Problem Noted Date Resolved Date [...] as of this encounter (statuses as of 06/09/2022) Immunizations Name Administration Dates Next Due COVID-19 mRNA, LNP-s, No Pre serve, 2-Dose Series ([employer]cheyacht) 12/29/2020,12/18/2020 COVID-19, LNP-s, No Preserve , Navarro-sucrose, Ages 12+ (Pfizer) 2022,10/01/2021 Pneumococcal Conjugate Vacci ne, 20-valent ([id number]) 03/12/2022 Pneumococcal Polysaccharide PPV23 (Pneumovax) 08/22/2009,06/15/2006 Seasonal [...] got money to buy more. Never true 05/12/2022 Within the past 12 months, t he food you bought just didn't last and you didn't have money to get more. Never true 05/12/2022 Sex Assigned at Date Recorded Female 11/07/2019 2:[address] Job Start Date Occupation Industry Not on file Not on file Not on file documented as of this encounter Miscellaneous Notes * Telephone Encounter - Shira Gross LPN - 06/09/2022 2:22 PM EDT Will go for chest xray today prior to visit. Thank you * Telephone Encounter - ELISSA Salguero - 06/09/2022 1:43 PM EDT Patient called requesting a appt. Pt verbalized that she is SOB with oxygen the patients pulse ox is 94%. Patient has a cough and pt verbalized that she feels like there is a elephant on her chest. Patient also has loss of appetite. Symptoms started a few days ago per patient. Please call patient back. Thank you documented in this encounter Plan of Treatment Upcoming Encounters Date Type Specialty Care Team Description 06/09/2022 Office Visit [facility] Galdino Andujar, 293 [place] [address] 06/23/2022 Office Visit [facility], Pharmacist [address] [place] [address] 07/22/2022 Office Visit Dermatology Micki Hernández MD [address] [facility] [place] [address] 07/28/2022 Imaging Radiology 07/28/2022 PulmDiagnostic Pulmonary Function West, [address] [place] [address] 08/05/2022 Nurse Only [employer], Nurse Annual Wellness Visit [address] [place] [address] 08/25/2022 Office Visit Pulmonary Nikita Sanchez MD [address] [place] [facility] [address] 09/13/2022 Office Visit Family Medicine Galdino Andujar, DO [address] [place] [address] Pending Results Name Type Priority Associated Diagnoses Date /Time XR CHEST 2 VIEWS Medical Imaging STAT Acute cough Chronic diastolic congestive heart failure (HCC) 06/09/2022 3:49 PM EDT Scheduled Orders Name Type Priority Associated Diagnoses Orde r Schedule XR CHEST 2 VIEWS Medical Imaging STAT Acute cough Chronic diastolic congestive heart failure (HCC) Expected: 06/09/2022, Expires: 07/09/2023 Scheduled Procedures Name Priority Associated Diagnoses Date/Ti [...] Additional history exists CKD HGB USE SMARTSET 95078 01/07/202301/07, 01/07/2022, 12/26/2021, Additional history exists CKD PHOS USE SMARTSET 78165 01/07/202312/25, 03/12/2021, 11/17/2020, Additional history exists DIABETES-FOOT EXAM 01/07/2023 01/07/2022, 0 01/14/2021, 11/07/2019, Additional history exists TSH FOR THYROID MEDICATION MONITORING YEARLY 01/07/2023 01/07/2022, 12/25/2020, 05/06/2020, Additional history exists Depression Screening, Annual for Pts 12 and Over 05/12/2023 05/12/2022, 06/12/2018 DIABETES-EYE EXAM 05/24/2023 05/24/2022, , 04/07/2020, Additional history exists Mammogram 02/12/2024 02/11/2022, 01/0 [...] as of this encounter Visit Diagnoses Diagnosis Acute cough- Primary Chronic diastolic congestive heart failure (HCC) Chronic diastolic heart failure documented in this encounter Advance Directives Documents on File Type Date Recorded Patient Fire Boss Expl anation Advanced Directive Advanced Directive Advanced [...] Camp Other Health Care Hayden r of Nursing Faculty Princess Allen Other Health Care Pow er of Nursing Faculty Care Teams Sea Captain Relationship Specialty Start Date End Date Galdino Andujar, DO [address] [place] [address] PCP - General Internal Medicine 01/07/22 documented as of this encounter
--- OUTSIDE RECORDS SUMMARY | 2023-06-01 04:34 | External Medical Summary | Summary of Care ---
Author Name Unknown Organization [place] [address] Care Team Providers Care Melt Down Furnace Operator Name Role Phone Galdino Andujar DO Primary Care Provider [phone] Reason for Visit * Reason Onset Date Comments COVID-19 Screening 06/10/2022 Encounter Details Date Type Department Care Team Description 06/10/2022 Telephone COVID19 Screening [facility] DEPT CLOSED 07/07/21 [address] [place] [id number], Automated Provider COVID-19 Screening Allergies Active Allergy Reactions Severity Noted Date Comments Codeine 07/08/2014 hallucination Pollen 05/18/2019 Heparin 09/04/2009 Heparin Induced Thrombocytopenia Hydrocodone Neuro complications (Please comment) 07/28/2020 Empagliflozin Other (Please comment) Medium 05/17/2018 3 yeast infections in 6 weeks after starting Morphine And Related 09/16/1997 Hallucinations Tetanus Toxoid Other (Please comment) 06/15/2011 Passed out documented as of this encounter (statuses as of 06/11/2022) Medications Medication Sig Dispensed Refills Start Date [...] 90 Cap 3 12/18/2019 Active DIURETIC TITRATION PLANIndications:Research Support Specialist 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 1 Each 0 04/08/2020 Active Blood Glucose Monitoring Suppl ([employer] BootUCH ULTRA 2) w/Device KIT Use to test [...] % Nasal Solution Administer into nostril 1 [place] in the morning AND 1 [place] before bedtime. 30 mL 12 02/18/2022 Active Nortriptyline HCl 50 MG Oral Capsule (Pamelor)Indications :Fibromyalgia TAKE ONE CAPSULE BY MOUTH AT BEDTIME 100 Capsule 3 04/01/2022 Active Dexcom G6 Rig Site Engineer Device Use as directed . Supplied by [employer], [employer]. [phone] Active Dexcom G6 Sensor Use as directed . Change every 10 days Supplied by [employer], [facility]. [phone] 0 Active Dexcom G6 Transmitter Use as directed . Change every 90 days Supplied by [employer], [facility]. 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 Atherosclerosis of [place] coronary arter y without angina pectoris 12/31/2021 [...] 03/25/2016 Fibromyalgia 02/02/2016 Abnormality of gait 02/02/[address] [address] 08/19/2014 History of pulmonary [...] as of this encounter (statuses as of 06/11/2022) Resolved Problems Problem Noted Date Resolved Date [...] as of this encounter (statuses as of 06/11/2022) Immunizations Name Administration Dates Next Due COVID-19 mRNA, LNP-s, No Pre serve, 2-Dose Series ([employer]) 12/29/2020,12/18/2020 COVID-19, LNP-s, No Preserve , Navarro-sucrose, Ages 12+ (Pfizer) 2022,10/01/2021 Pneumococcal Conjugate Vacci ne, 20-valent ([id number]) 03/12/2022 Pneumococcal Polysaccharide PPV23 (Pneumovax) 08/22/2009,06/15/2006 Seasonal [...] encounter Miscellaneous Notes * Telephone Encounter - Barrie Fowler [facility] - 06/11/2022 5:44 AM EDT Outreach Attempts IVR Call Jun 10 2022 9:06AM Voicemail - Voicemail IVR Message: Marilou Brown. This is [employer] calling to let you know you have test results available. You can access this result in your yetu account under 'Test & Lab Results'. If you are not enrolledin yetu, you can create an account by going to [email or web address]. You can also call back at [phone] or we will attempt to reach you later tomorrow. documented in this encounter Plan of Treatment Upcoming Encounters Date Type Specialty Care Team Description 06/14/2022 Office Visit Family Medicine Galdino Andujar, DO [address] [place] [address] 06/23/2022 Office Visit [facility], Pharmacist 65 [facility] [address] [place] [address] 07/22/2022 Office Visit Dermatology Micki Hernández MD [address] [place] [address] 07/28/2022 Imaging Radiology 07/28/2022 PulmDiagnostic Pulmonary Function West, [address] [facility] [place] [address] 08/05/[address] [facility], Nurse Annual Wellness Visit [address] [place] [address] 08/25/2022 Office Visit Pulmonary Nikita Sanchez MD [address] [facility] [place] [address] 09/13/2022 Office Visit Family Medicine Galdino Andujar, [address] [place] [place] [address] Scheduled Procedures Name Priority Associated Diagnoses Date/Ti [...] Additional history exists CKD HGB USE SMARTSET 53079 01/07/202301/07, 01/07/2022, 12/26/2021, Additional history exists CKD PHOS USE SMARTSET 54974 01/07/202312/25, 03/12/2021, 11/17/2020, Additional history exists DIABETES-FOOT [...] Documents on File Type Date Recorded Patient Administrative Director Expl anation Advanced Directive Advanced Directive Advanced [...] Camp Other Health Care Hayden r of Livestock Rancher Princess Allen Other Health Care Pow er of Livestock Rancher Care Teams Melt Down Furnace Operator Relationship Specialty Start Date End Date Galdino Andujar, DO [address] [place] [address] PCP - General Internal Medicine 01/07/22 documented as of this encounter
--- OUTSIDE RECORDS SUMMARY | 2023-06-01 04:34 | External Medical Summary | Summary of Care ---
Author Name Unknown Organization [place] [address] Care Team Providers Care Scalping Machine Operator Name Role Phone Galdino Andujar DO Primary Care Provider [phone] Encounter Details Date Type Department Care Team Description 06/10/2022 Scan Encounter Family Practice 65 [facility] [place] [address] [place] [id number] Galdino Andujar DO [address] [place] [address] <No scans attached> Allergies Active Allergy Reactions [...] 90 Cap 3 12/18/2019 Active DIURETIC TITRATION PLANIndications:Customer Service And Sales Consultant 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 1 Each 0 04/08/2020 Active Blood Glucose Monitoring Suppl (MedicAnimal.comUCH ULTRA 2) w/Device KIT Use to test [...] % Nasal Solution Administer into nostril 1 [place] in the morning AND 1 [place] before bedtime. 30 mL 12 02/18/2022 Active Nortriptyline HCl 50 MG Oral Capsule (Pamelor)Indications :Fibromyalgia TAKE ONE CAPSULE BY MOUTH AT BEDTIME 100 Capsule 3 04/01/2022 Active Dexcom G6 Periodontal Assistant Device Use as directed . Supplied by [employer] [facility], [facility]. [phone] Active Dexcom G6 Sensor Use as directed . Change every 10 days Supplied by [employer] [facility], [facility]. [phone] Active Dexcom G6 Transmitter Use as directed . Change every 90 days Supplied by [employer] [facility], [facility]. [phone] Active rOPINIRole HCl 2 MG Oral [...] mRNA, LNP-s, No Pre serve, 2-Dose Series ([employer]) 12/29/2020,12/18/2020 COVID-19, LNP-s, No Preserve , Navarro-sucrose, Ages 12+ (Pfizer) 2022,10/01/2021 Pneumococcal Conjugate Vacci ne, 20-valent ([id number]) 03/12/2022 Pneumococcal Polysaccharide PPV23 (Pneumovax) 08/22/2009,06/15/2006 Seasonal [...] Medicine Galdino Andujar, DO [address] [place] [address] 06/23/2022 Office Visit Family Medicine [place], Pharmacist 65 [facility] [address] [facility], [place] [address] 07/22/2022 Office Visit Dermatology Micki Hernández MD [address] [place] [address] 07/28/2022 Imaging Radiology 07/28/2022 PulmDiagnostic Pulmonary Function West, [address] [place] [address] 08/05/2022 Nurse Only [employer], Nurse Annual Wellness Visit [address] [place] [address] 08/25/2022 Office Visit Pulmonary Nikita Sanchez MD [address] [place] [address] 09/13/2022 Office Visit Family Medicine Galdino Andujar, DO [address] [place] [address] Scheduled Procedures Name Priority Associated Diagnoses Date/Ti [...] Additional history exists CKD HGB USE SMARTSET 07651 01/07/202301/07, 01/07/2022, 12/26/2021, Additional history exists CKD PHOS USE SMARTSET 30429 01/07/2023 0412/2021, 03/12/2021, 11/17/2020, Additional history exists [...] Documents on File Type Date Recorded Patient Ross Lift Operator Expl anation Advanced Directive Advanced Directive [...] Camp Other Health Care Hayden r of Shear Assembler Princess Allen Other Health Care Pow er of Shear Assembler Care Teams Scalping Machine Operator Relationship Specialty Start Date End Date Galdino Andujar, DO [address] [place] [address] PCP - General Internal Medicine 01/07/22 documented as of this encounter
--- OUTSIDE RECORDS SUMMARY | 2023-06-01 04:34 | External Medical Summary | Summary of Care ---
Author Name Unknown Organization [place] [address] Care Team Providers Care Advanced Seal Delivery System Name Role Phone Galdino Andujar DO Primary Care Provider [phone] Reason for Visit * Reason Onset Date Comments COVID-19 Screening 06/12/2022 Encounter Details Date Type Department Care Team Description 06/12/2022 Telephone COVID19 Screening [facility] DEPT CLOSED 07/07/21 [address] [place] [id number], Automated Provider COVID-19 Screening Allergies Active Allergy Reactions Severity Noted Date Comments Codeine 07/08/2014 hallucination Pollen 05/18/2019 Heparin 09/04/2009 Heparin Induced Thrombocytopenia Hydrocodone Neuro complications (Please comment) 07/28/2020 Empagliflozin Other (Please comment) Medium 05/17/2018 3 yeast infections in 6 weeks after starting Morphine And Related 09/16/1997 Hallucinations Tetanus Toxoid Other (Please comment) 06/15/2011 Passed out documented as of this encounter (statuses as of 06/13/2022) Medications Medication Sig Dispensed Refills Start Date [...] 90 Cap 3 12/18/2019 Active DIURETIC TITRATION PLANIndications:Card Lacer Jacquard zahra diastolic congestive heart failure (HCC) If [...] % Nasal Solution Administer into nostril 1 [place] in the morning AND 1 [place] before bedtime. 30 mL 12 02/18/2022 Active Nortriptyline HCl 50 MG Oral Capsule (Pamelor)Indications :Fibromyalgia TAKE ONE CAPSULE BY MOUTH AT BEDTIME 100 Capsule 3 04/01/2022 Active Dexcom G6 Head Of Sales Device Use as directed . Supplied by [employer], [employer]. [phone] 0 Active Dexcom G6 Sensor Use as directed . Change every 10 days Supplied by [employer], [facility]. [phone] 0 Active Dexcom G6 Transmitter Use as directed . Change every 90 days Supplied by [employer], [facility]. [phone] 0 Active rOPINIRole HCl 2 MG Oral [...] as of this encounter (statuses as of 06/13/2022) Active Problems Problem Noted Date Encounter for [...] 03/25/2016 Fibromyalgia 02/02/2016 Abnormality of gait 02/02/[address] [place] [address] 08/19/2014 History of pulmonary [...] as of this encounter (statuses as of 06/13/2022) Resolved Problems Problem Noted Date Resolved Date [...] as of this encounter (statuses as of 06/13/2022) Immunizations Name Administration Dates Next Due COVID-19 mRNA, LNP-s, No Pre serve, 2-Dose Series ([employer]hesive) 12/29/2020,12/18/2020 COVID-19, LNP-s, No Preserve , Navarro-sucrose, Ages 12+ (Pfizer) 2022,10/01/2021 Pneumococcal Conjugate Vacci ne, 20-valent ([id number]) 03/12/2022 Pneumococcal Polysaccharide PPV23 (Pneumovax) 08/22/2009,06/15/2006 Seasonal [...] Notes * Telephone Encounter - Covid Results [facility] - 06/13/2022 12:08 AM EDT Outreach Attempts IVR Call Jun 12 2022 9:05AM Answered - Success Results COVID: Negative IVR Message: Marilou Brown. Your COVID-19 from 06/09/2022 00:00:00 results are negative. This means you are NOT infected with coronavirus 19. If your cold/flu symptoms last longer than 7 days or get worse, contact your primary care physician. If you don't have a primary care physician, [facility]. To establish care with a [facility] provider, please call [phone]. Practice social distancing and good hand hygiene to keep yourself and others safe. Your results are also available for your reference in your [facility] account under 'Test & Lab Results.' If you are not enrolled in [facility], you can create an account by going to [email or web address]. You will also receive a letter in the mail with your results. If you are a [employer] staff member or employee, when you receive your result, please call [facility] between 7 a.m. and 4 p.m. at [phone]. Notify them of your test results and for instructions on returning to work after your quarantine period. Press 1 if you would like to speak with a nurse, press 2 to hear this message again. documented in this encounter Plan of Treatment Upcoming Encounters Date Type Specialty Care Team Description 06/14/2022 Office Visit Family Medicine Galdino Andujar, [address] [place] [address] 06/23/2022 Office Visit [facility], Pharmacist [address] [address] 07/22/2022 Office Visit Dermatology Micki Hernández MD [address] [place] [address] 07/28/2022 Imaging Radiology 07/28/2022 PulmDiagnostic Pulmonary Function West, Pft [address] [facility] [place] [address] 08/05/2022 Nurse Only [facility], Nurse Annual Wellness Visit [address] [place] [address] 08/25/2022 Office Visit Pulmonary Nikita Sanchez MD [address] [address] 09/13/2022 Office Visit Family Medicine Galdino Andujar, [address] [place] [address] Scheduled Procedures Name Priority Associated Diagnoses Date/Ti [...] Additional history exists CKD HGB USE SMARTSET 55730 01/07/202301/07, 01/07/2022, 12/26/2021, Additional history exists CKD PHOS USE SMARTSET 23820 01/07/202312/25, 03/12/2021, 11/17/2020, Additional history exists DIABETES-FOOT [...] Documents on File Type Date Recorded Patient Percussion Instructor Expl anation Advanced Directive Advanced Directive Advanced [...] Other Health Care Hayden r of Business Control Manager Princess Allen Other Health Care Pow er of Business Control Manager Care Teams Advanced Seal Delivery System Relationship Specialty Start Date End Date Galdino Andujar, DO [address] [place] [address] PCP - General Internal Medicine 01/07/22 documented as of this encounter
--- OUTSIDE RECORDS SUMMARY | 2023-06-01 04:35 | External Medical Summary | Summary of Care ---
Author Name Unknown Organization [place] [address] Care Team Providers Care Hat And Cap Opener Name Role Phone Galdino Andujar DO Primary Care Provider [phone] Encounter Details Date Type Department Care Team Description 05/24/2022 Orders Only Family Practice 65 [facility] [place] [address] [place] [id number] Galdino Andujar DO [address] [place] [address] Allergies Active Allergy Reactions Severity Noted Date Comments Codeine 07/08/2014 hallucination Pollen 05/18/2019 Heparin 09/04/2009 Heparin Induced Thrombocytopenia Hydrocodone Neuro complications (Please comment) 07/28/2020 Empagliflozin Other (Please comment) Medium 05/17/2018 3 yeast infections in 6 weeks after starting Morphine And Related 09/16/1997 Hallucinations Tetanus Toxoid Other (Please comment) 06/15/2011 Passed out documented as of this encounter (statuses as of 05/24/2022) Medications Medication Sig Dispensed Refills Start Date [...] 90 Cap 3 12/18/2019 Active DIURETIC TITRATION PLANIndications:Mold Mover 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 1 Each 0 04/08/2020 Active Blood Glucose Monitoring Suppl ([employer]CH ULTRA 2) w/Device KIT Use to test [...] daily, E11.9 400 Strip 3 11/04/2021 Active traZODone HCl 50 MG Oral Tablet (Desyrel) Take by mouth 1 Tablet before bedtime. 90 Tablet 0 11/04/2021 Active Cyclobenzaprine HCl 10 MG Oral [...] 90 MG 100 Capsule 0 02/18/2022 Active Levothyroxine Sodium 200 MCG Oral Tablet (Levoxyl)Indications :Postsurgical hypothyroidism TAKE ONE TABLET BY MOUTH IN THE MORNING AT LEAST 30 MINUTES PRIOR TO BREAKFAST OR OTHER MEDS 100 Tablet 0 02/18/2022 Active DULoxetine HCl 60 MG Oral Capsule Delayed Release Particles (Cymbalta)Indication s:Fibromyalgia,Moder ate episode of recurrent major depressive disorder (HCC),Primary osteoarthritis of both knees Take by mouth 1 Capsule in the morning. Along with 30 mg capsule to total 90 mg daily.. 100 Capsule 1 02/18/2022 Active Ventolin HFA 108 (90 Base) MCG/ACT Inhalation Aerosol Solution Inhale by mouth 2 Puffs every 4 hours as needed for Cough, Shortness of Breath or Wheezing. 18 g 3 02/18/2022 Active Azelastine HCl 0.1 % Nasal Solution Administer into nostril 1 [place] in the morning AND 1 [place] before bedtime. 30 mL 12 02/18/2022 Active traMADol HCl 50 MG Oral Tablet (Ultram)Indications: Chronic pain syndrome Take by mouth 1 Tablet every 8 hours as needed for Pain, Severe. 90 Tablet 0 03/12/2022 Active Nortriptyline HCl 50 MG Oral Capsule (Pamelor)Indications :Fibromyalgia TAKE ONE CAPSULE BY MOUTH AT BEDTIME 100 Capsule 3 04/01/2022 Active Dexcom G6 Backup Operator Device Use as directed . Supplied by [employer], [employer]. [phone] 0 Active Dexcom G6 Sensor Use as directed . Change every 10 days Supplied by [employer], [employer]. [phone] Active Dexcom G6 Transmitter Use as directed . Change every 90 days Supplied by [employer]. [phone] Active rOPINIRole HCl 2 MG Oral [...] the morning. 100 Tablet 1 05/12/2022 Active Hospital, Clinic, or Other Facility Administered Medication Ordered Dose Route Frequency Start Date End Date Status Albuterol Sulfate (Proventil) (2.5 MG/3ML) 0.083% inhalation solution 2.5 mgIndications:Chronic hypoxemic respiratory failure (HCC) 2.5 mg NEBULIZER Q4H PRN 10/08/2021 Active documented as of this encounter (statuses as of 05/24/2022) Active Problems Problem Noted Date Encounter for [...] thrombocytopenia (HIT) 0 12/31/2021 Atherosclerosis of [place] coronary arter y without angina pectoris 12/31/2021 [...] 03/25/2016 Fibromyalgia 02/02/2016 Abnormality of gait 02/02/[address] [place] [address] 08/19/2014 History of pulmonary [...] as of this encounter (statuses as of 05/24/2022) Resolved Problems Problem Noted Date Resolved Date [...] protocol #1 HTN, goal below 140/80 05/15/2012 05/30/201 4 Overview: Per HTN Protocol #27. Nocturnal [...] as of this encounter (statuses as of 05/24/2022) Immunizations Name Administration Dates Next Due COVID-19 mRNA, LNP-s, No Pre serve, 2-Dose Series ([employer]) 12/29/2020,12/18/2020 COVID-19, LNP-s, No Preserve , Navarro-sucrose, Ages 12+ (Pfizer) 2022,10/01/2021 Pneumococcal Conjugate Vacci ne, 20-valent ([id number]) 03/12/2022 Pneumococcal Polysaccharide PPV23 (Pneumovax) 08/22/2009,06/15/2006 Seasonal [...] Used Date Former Smoker 1 15 Quit: 12/01 /1997 Smokeless Tobacco: Never Used Alcohol Use Standard [...] Specialty Care Team Description 06/23/2022 Office Visit [facility], Pharmacist [address] [address] 07/22/2022 Office Visit Dermatology Micki Hernández MD [address] [place] [address] 07/28/2022 Imaging Radiology 07/28/2022 PulmDiagnostic Pulmonary Function West, [address]ft [address] [place] [address] 08/05/2022 Nurse Only [facility], Nurse Annual Wellness Visit [address] [address] 08/25/2022 Office Visit Pulmonary Nikita Sanchez MD [address] [place] [address] 09/13/2022 Office Visit Family Medicine Galdino Andujar, [address] [place] [address] Scheduled Procedures Name Priority Associated Diagnoses Date/Ti me COLONOSCOPY FLEXIBLE PROXIMAL DIAGNOSTIC Recall Colon cancer screening Health Maintenance Due Date Last Done Comments Cologuard: Ages 45-75 2000 FOBT: Ages 45-75 2000 Sigmoidoscopy: Ages 45-75 2000 DIABETES-EYE EXAM 04/14/2022 05/24/2022, , 04/07/2020, Additional history exists Influenza Vaccine (FLU shot) (#1) 2022 07/20/2021, 06/13/2020, 07/23/2019, Additional history exists DIABETES-HGBA1C EVERY 6 MONTHS 11/12/2022 05/12/2022, 01/07/2022, 11/17/2020, Additional history exists GFR - Renal Function 11/12/2022 05/12/2022, 01/07/2022, 12/26/2021, Additional history exists Alb / Creat Ratio 01/07/2023 01/07/2022, , 05/01/2018, Additional history exists CKD HGB USE SMARTSET 93470 01/07/202301/07, 01/07/2022, 12/26/2021, Additional history exists CKD PHOS USE SMARTSET 39196 01/07/202312/25, 03/12/2021, 11/17/2020, Additional history exists DIABETES-FOOT EXAM 01/07/2023 01/07/2022, 0 01/14/2021, 11/07/2019, Additional history exists TSH FOR THYROID MEDICATION MONITORING YEARLY 01/07/2023 01/07/2022, 12/25/2020, 05/06/2020, Additional history exists Depression Screening, Annual for Pts 12 and Over 05/12/2023 05/12/2022, 06/12/2018 Mammogram 02/12/2024 02/11/2022, 01/0 02/2021, 07/10/2019, [...] Procedure Name Priority Date/Time Associated Diagnosis Comments DIABETIC EYE EXAM Routine 05/24/2022 documented in this encounter Results * DIABETIC EYE EXAM (05/24/2022) Specimen Narrative Performing Organization Address City/State/[facility] Co de Phone Number OUTSIDE LAB (SEE SCANNED REPORT) documented in this encounter Advance Directives Documents on File Type Date Recorded Patient Metal Cut Off Saw Tender Expl anation Advanced Directive Advanced Directive Advanced [...] Camp Other Health Care Hayden r of Tax Associate Princess Allen Other Health Care Pow er of Tax Associate Care Teams Hat And Cap Opener Relationship Specialty Start Date End Date Galdino Andujar, DO [address] [place] [address] PCP - General Internal Medicine 01/07/22 documented as of this encounter
--- OUTSIDE RECORDS SUMMARY | 2023-06-01 04:35 | External Medical Summary | Summary of Care ---
Author Name Unknown Organization [place] [address] Care Team Providers Care Grey Tender Name Role Phone Galdino Andujar DO Primary Care Provider [phone] Reason for Visit * Reason Comments Dosage Adjustment In Person (Anticoag Cl inic) Diabetes Follow-Up Encounter Details Date Type Department Care Team Description 05/12/2022 Office Visit Family Practice 65 [facility] [address] [place] [address] [place], Pharmacist [address] [address] Type 2 diabetes mellitus with hemoglobin A1c [...] as of this encounter (statuses as of 05/12/2022) Medications Medication Sig Dispensed Refills Start Date [...] 0 04/08/2020 Active Blood Glucose Monitoring Suppl ([employer] ULTRA 2) w/Device KIT Use to test [...] 11/04/2021 Active Furosemide 40 MG Oral Tablet (Lasix)Indications: Chronic diastolic congestive heart failure (HCC) Take by mouth 0.5 Tablets in the morning AND 0.5 Tablets before bedtime. May take an additional 20 mg 2 to 3 days per week as needed for worsening swelling. 135 Tablet 0 11/04/2021 Active NaHereTouch Ultra Blue In Vitro Strip (Glucose Blood) [...] goal of 7.0%-8.0% ([facility]) Inject under the skin 60 Units in [...] % Nasal Solution Administer into nostril 1 [place] in the morning AND 1 [place] before bedtime. 30 mL 12 02/18/2022 Active traMADol HCl 50 MG Oral Tablet (Ultram)Indications :Chronic pain syndrome Take by mouth 1 Tablet every 8 hours as needed for Pain, Severe. 90 Tablet 0 03/12/2022 Active Nortriptyline HCl 50 MG Oral Capsule (Pamelor)Indication s:Fibromyalgia TAKE ONE CAPSULE BY MOUTH AT BEDTIME 100 Capsule 3 04/01/2022 Active Dexcom G6 Mold Maker Apprentice Device Use as directed . Supplied by [employer], [employer]. [phone] 0 Active Dexcom G6 Sensor Use as directed . Change every 10 days Supplied by [employer], [employer]. [phone] 0 Active Dexcom G6 Transmitter Use as directed . Change every 90 days Supplied by [employer]. [phone] Active rOPINIRole HCl 2 MG Oral [...] the morning. 100 Tablet 1 05/12/2022 Active clonazePAM 0.5 MG Oral Tablet (KlonoPIN)Indicatio ns:Anxiety state Take by mouth 1 Tablet in the morning AND 1 Tablet before bedtime. 60 Tablet 0 03/12/2022 05/12/20 22 Discontinu ed(Refill) Hospital, Clinic, or Other Facility Administered Medication Ordered Dose Route Frequency Start Date End Date Status Albuterol Sulfate (Proventil) (2.5 MG/3ML) 0.083% inhalation solution 2.5 mgIndications:Chronic hypoxemic respiratory failure (HCC) 2.5 mg NEBULIZER Q4H PRN 10/08/2021 Active documented as of this encounter (statuses as of 05/12/2022) Active Problems Problem Noted Date Encounter for [...] as of this encounter (statuses as of 05/12/2022) Resolved Problems Problem Noted Date Resolved Date [...] as of this encounter (statuses as of 05/12/2022) Immunizations Name Administration Dates Next Due COVID-19 mRNA, LNP-s, No Pre serve, 2-Dose Series ([employer]) 12/29/2020,12/18/2020 COVID-19, LNP-s, No Preserve , Navarro-sucrose, Ages 12+ (Pfizer) 2022,10/01/2021 Pneumococcal Conjugate Vacci ne, 20-valent ([id number]) 03/12/2022 Pneumococcal Polysaccharide PPV23 (Pneumovax) 08/22/2009,06/15/2006 Seasonal [...] as of this encounter Progress Notes * Jane Wood, [facility] - 05/12/2022 1:51 PM EDT Images from the original note were not included. Medication Therapy Disease Management [facility] - Diabetes Management Progress Note Stephanie Camp, identified by name and date of , is a 67 year old female being seen for diabetes management/education. Patient presents for return diabetic visit. and first dexcom download DIABETES: Current diabetic medications: Increase Novolog - 40 units with breakfast/lunch and 45 units with supper +SS 1:25 >150 Tresiba 60 units at bedtime Trulicity 4.5 mg weekly- Tuesday night/Tuesday mornings Medication Injection Site: Abdomen Lifestyle: Diet: unchanged Glucose Review/SMBG: Readings obtained from patient device Hypoglycemia: Does your blood sugar go below 70 mg/dL? No Hyperglycemia symptoms present: none Recent Labs Units 01/07/22 1156 11/17/20 1300 HEMOGLOBIN A1C - [facility] % 7.8* 8.3* Recent Labs Units 01/07/22 1156 12/26/21 0000 12/07/21 1157 ESTIMATED GLOMERULAR FILTRATION RATE - [facility] mL/min 43* -- 36* EGFR-OUTSIDE LAB ML/MIN -- 34.8 -- CREATININE - [facility] mg/dL 1.4* -- 1.6* CREATININE-OUTSIDE LAB MG/DL -- 1.54* -- HYPERTENSION: Patient on ACEi/ARB: no, not indicated UAC <16 on 01/07/22 BP Readings from Last 3 Encounters: 05/12/22 130/76 03/12/22 116/64 03/03/22 161/64 Blood pressure at goal: yes HYPERLIPIDEMIA: Patient is taking moderate or high intensity statin: No Current regimen: none - statin intolerance listed on problem list Goal statin intensity: high The ASCVD Risk score (Freddy JOHNS Jr., et al., 2013) failed to calculate for the following reasons: The patient has a prior [place] or stroke diagnosis HEALTH MAINTENANCE REVIEW: Health Maintenance Due Topic Date Due DIABETES-EYE EXAM 04/14/2022 Completing today ASSESSMENT & PLAN: ICD-10-CM 1. Type 2 diabetes mellitus with hemoglobin A1c goal of less than 8.0% (HCC) E11.9 History of Treatment Barriers: Lifestyle: None Therapy considerations: Renal Function and Cost Medication: jardiance: CHRIST yeast infections/UTIs Medication: statins - intolerant BG Readings Blood sugars uncontrolled. Rising as day begins, correcting overnight. Medications Reviewed current regimen, patient is adherent to regimen. Discussed re-starting metformin at a low dose depending on renal function- script sent to mail order, will fill pending results of BMP today. If renal function does not support metformin use, will need to adjust insulin doses. Patient had used an insulin pump in the past, but ran into issues with insurance covering insulin vials for the pump. Patient has medicaid secondary- may be able to submit novolog vial with DAW1 on script to see ifthat will be covered. Patient notes much improved control with insulin pump. Diet, Exercise, Lifestyle No significant lifestyle changes since last visit. Patient is agreeable to SMBG with Dexcom G6. Patient aware to contact clinic if any hypoglycemia before next visit. MEDICATION CHANGES: yes, see below; preferred pharmacy: [facility] ([facility]) *pending BMP results* Diabetic Medications: Novolog - 40 units with breakfast/lunch and 45 units with supper +SS 1:25 >150 Tresiba 60 units at bedtime Trulicity 4.5 mg weekly- Tuesday night/Tuesday mornings Start Metformin ER 500 mg 1 tablet daily eGFR 43 mL/min 01/07/22 HEALTH MAINTENANCE INTERVENTIONS: Labs: BMP in process Immunizations: Up to Date Foot Exam: Up to Date Eye Exam: Up to Date Annual Wellness Visit: Up to Date FOLLOW UP: Return to clinic in 6 weeks 06/23/2022 Jane Wood [facility] Clinical Pharmacist - Managing Manager Medication Therapy Management Clinic 05/12/2022, 1:55 PM documented in this encounter Plan of Treatment Upcoming Encounters Date Type Specialty Care Team Description 06/23/2022 Office Visit [facility], Pharmacist 65 [facility] [address] [place] [address] 07/22/2022 Office Visit Dermatology Micki Hernández MD [address] [place] [address] 07/28/2022 Imaging Radiology 07/28/2022 PulmDiagnostic Pulmonary Function West, [address] [place] [address] 08/05/2022 Nurse Only [facility], Nurse Annual Wellness Visit 65 [facility] [address] [place] [address] 08/25/2022 Office Visit Pulmonary Nikita Sanchez MD [address] [id number] 09/13/2022 Office Visit [facility] Medicine Galdino Andujar, DO [address] [place] [address] Scheduled Procedures Name Priority Associated Diagnoses Date/Ti me COLONOSCOPY FLEXIBLE PROXIMAL DIAGNOSTIC Recall Colon cancer screening Health Maintenance Due Date Last Done Comments Cologuard: Ages 45-75 2000 FOBT: Ages 45-75 2000 Sigmoidoscopy: Ages 45-75 2000 DIABETES-EYE EXAM 04/14/2022 04/14/2021, , 04/05/2019, Additional history exists Influenza Vaccine (FLU shot) (#1) 2022 07/20/2021, 06/13/2020, 07/23/2019, Additional history exists DIABETES-HGBA1C EVERY 6 MONTHS 07/09/2022 01/07/2022, 11/17/2020, 01/23/2020, Additional history exists GFR - Renal Function 07/09/2022 01/07/2022, 12/26/2021, 12/07/2021, Additional history exists Alb / Creat Ratio 01/07/2023 01/07/2022, , 05/01/2018, Additional history exists CKD HGB USE SMARTSET 42810 01/07/202301/07, 01/07/2022, 12/26/2021, Additional history exists CKD PHOS USE SMARTSET 68794 01/07/202312/25, 03/12/2021, 11/17/2020, Additional history exists DIABETES-FOOT EXAM 01/07/2023 01/07/2022, 0 01/14/2021, 11/07/2019, Additional history exists Depression Screening, Annual for Pts 12 and Over 01/07/2023 05/12/2022, 06/12/2018 TSH FOR THYROID MEDICATION MONITORING YEARLY 01/07/2023 01/07/2022, 12/25/2020, 05/06/2020, Additional history exists Mammogram 02/12/2024 02/11/2022, 01/0 [...] Documents on File Type Date Recorded Patient Catechist Expl anation Advanced Directive Advanced Directive Advanced [...] Camp Other Health Care Hayden r of Equipment Validation Engineer Princess Allen Other Health Care Pow er of Equipment Validation Engineer Care Teams Grey Tender Relationship Specialty Start Date End Date Galdino Andujar, DO [address] [place] [address] PCP - General Internal Medicine 01/07/22 documented as of this encounter
--- OUTSIDE RECORDS SUMMARY | 2023-06-01 04:35 | External Medical Summary | Summary of Care ---
Author Name Unknown Organization [place] [address] Care Team Providers Care Rider Ticket Worker Name Role Phone Galdino Andujar DO Primary Care Provider Reason for Referral * Evaluate & Treat - Unlimited Visits (Within 10 days (routine)) - Authorized Specialty Diagnoses / Procedures Referred By Contsandie t Referred To Contact Dermatology Diagnoses Venous stasis dermatitis of right lower extremity Galdino Andujar DO [address] [place] [address] Referral ID Status Reason Start Date Expiration Date Visits Requested Visits Authorized [id number] Authorized Specialty Services Required 05/12/2022 999 999 Question Answer Referral Priority Within 10 days (routine) Are you referring the patient for Mohs Surgery and have a current positive skin cancer biopsy result? No What is the reason for the patient referral? Other Reason for Visit * Reason Comments Follow Up Encounter Details Date Type Department Care Team Description 05/12/2022 Office Visit Family Practice [address] [place] [address] [address] [place] [address] Galdino Andujar DO [address] [place] [address] Type 2 diabetes mellitus with hemoglobin A1c goal of less than 8.0% ([facility])*; Urinary frequency; Postsurgical hypothyroidism; Essential hypertension with goal blood pressure less than 140/90; History of pulmonary embolus (PE); Statin intolerance; Fibromyalgia; Restless legs syndrome; Gastroesophageal reflux disease with esophagitis without hemorrhage; Type 2 diabetes mellitus with stage 3b chronic kidney disease, with long-term current use of insulin (HCC); Spinal stenosis of lumbar region without neurogenic claudication; Atherosclerosis of [place] coronary artery of [place] heart without angina pectoris; Carotid artery stenosis, asymptomatic, right; Venous stasis dermatitis of right lower extremity; Risk and functional assessment; Anxiety state; Chronic diastolic congestive heart failure (HCC) Allergies [...] % Nasal Solution Administer into nostril 1 Carson in the morning AND 1 Carson before bedtime. 30 mL 12 02/18/2022 Active traMADol HCl 50 MG Oral Tablet (Ultram)Indications :Chronic pain syndrome Take by mouth 1 Tablet every 8 hours as needed for Pain, Severe. 90 Tablet 0 03/12/2022 Active Nortriptyline HCl 50 MG Oral Capsule (Pamelor)Indication s:Fibromyalgia TAKE ONE CAPSULE BY MOUTH AT BEDTIME 100 Capsule 3 04/01/[address] Device Use as directed . Supplied by [employer]. [phone] Active Dexcom G6 Sensor Use as directed . Change every 10 days Supplied by [employer]. [phone] Active Dexcom G6 Transmitter Use as directed . Change every 90 days Supplied by [employer]. [phone] Active rOPINIRole HCl 2 MG Oral Tablet (Requip)Indications :Restless legs syndrome TAKE ONE TABLET BY MOUTH AT BEDTIME 100 Tablet 3 04/15/2022 Active clonazePAM 0.5 MG Oral Tablet (KlonoPIN)Indicatio ns:Anxiety state Take by mouth 1 Tablet in the morning AND 1 Tablet before bedtime. 60 Tablet 0 05/12/2022 Active clonazePAM 0.5 MG Oral Tablet [...] (Pfizer) 2022,10/01/2021 Pneumococcal Conjugate Vacci ne, 20-valent ([id number]) 03/12/2022 Pneumococcal Polysaccharide PPV23 (Pneumovax) 08/22/2009,06/15/2006 Seasonal [...] Sign Reading Time Taken Comments Blood Pressure 130/76 05/12/2022 2:05 PM EDT Pulse 104 05/12/2022 2:05 PM EDT Temperature 36.1 C (97 F) 05/12/2022 2:05 PM EDT Respiratory Rate 16 05/12/2022 2:05 PM EDT Oxygen Saturation 93% 05/12/2022 2:05 PM EDT Inhaled Oxygen Concentration - - Weight 154.7 kg (341 lb 1.6 oz) 022 2:05 PM EDT Height 167.6 cm (5' 6") 05/12/2022 2:05 PM EDT Body Mass Index 55.05 05/12/2022 2:05 PM EDT documented in this encounter Patient Instructions * Patient Instructions* Shira Gross LPN - 05/12/2022 1:59 PM EDT Patient Instructions - Fall Prevention (This [...] pathway between the bedroom and the bathroom [facility] Patient Education Copyright 2008 - 2010 [employer] [...] 10 times. Repeat this throughout the day. [employer] Patient Education Copyright 2008 - 2010 [employer] except where otherwise noted. Preventing Falls: Moving [...] a stepstool. [employer] Patient Education Copyright 2008 - 2010 [employer] except where otherwise noted. Urinary Incontinence Plan of Care Documentation: (This education is for all patients over 65 regardless of symptoms) Current medications reconciled. Patient encouraged to: Practice kegal exercises Provide education materials Use the restroom every 2 hours throughout the day Limit caffeine, alcohol, spicy foods and acidic foods Keep a bladder diary Limit fluid intake 3-4 hours before bed Lose weight Prevent constipation Take fluid pills at a time when you can get to the bathroom quickly Control sugar better if diabetic Limit fluid intake to 60 oz. per day Wear support stockings (TEDs)if you have edema Shira Gross LPN 05/12/2022 Kegel Exercises Kegel exercises dont require special clothing or equipment. Theyre easy to learn and simple to do. And if you do them right, no one can tell youre doing them, so they can be done almost anywhere. Your doctor, nurse, or physical therapist can answer any questions you have and help you get started. A Weak Pelvic Floor The pelvic floor muscles may weaken due to aging, and vaginal childbirth, injury, surgery, chronic cough, or lack of exercise. If the pelvic floor is weak, your bladder and other pelvic organs may sag out of place. The urethra may also open too easily and allow urine to leak out. Kegel exercises can help you strengthen your pelvic floor muscles so they can better support the pelvic organs and control urine flow. How Kegel Exercises Are Done Try each of the Kegel exercises described below. When youre doing them, try not to move your leg, buttock, or stomach muscles. While youre urinating, try to stop the flow of urine. Start and stop it as often as you can. Contract as if you were stopping your urine stream, but do it when youre not urinating. Tighten your rectum as if trying not to pass gas. Contract your anus, but dont move your buttocks. Helpful Hints Do your Kegels as often as you can. The more you do them, the faster youll feel the results. Pick an activity you do often as a reminder. For instance, do your Kegels every time you sit down. Tighten your pelvic floor before you sneeze, get up from a chair, cough, laugh, or lift. This protects your pelvic floor from injury and can help prevent urine leakage. Try to hold each Kegel for a slow count to five. You probably wont be able to hold them for thatlong at first, but keep practicing. It will get easier as your pelvic floor gets stronger. Eventually, special weights that you place in your vagina may be recommended to help make your Kegels even more effective. [employer] Patient Education Copyright 2008 - 2010 [employer] except where otherwise noted. Here are some helpful tips for your urinary incontinence: (This education is for all patients over 65 regardless of symptoms) Practice Kegel exercises Use the restroom every 2 hours throughout the day Limit caffeine, alcohol, spicy foods, and acidic foods Keep a bladder diary Limit fluid intake 3-4 hours before bed Lose weight Prevent constipation Take fluid pills at a time when can get to the bathroom quickly Control sugar better if diabetic Limit fluid intake to 60 oz. per day Any questions, please feel free to contact our office. documented in this encounter Progress Notes * Galdion Andujar DO - 05/12/2022 2:40 PM EDT SUBJECTIVE: Stephanie Camp is a 67 year old female. Chief Complaint Patient presents with Follow Up HPI: Patient is a 67 year old female with a history of DM type II, CKD stage III, Diastolic CHF, chronichypoxic respiratory failure, HTN, Recurrent DVT, IVC filter, Hyperlipidemia, statin intolerance, GERD, Lumbar Disc Disease, restless leg syndrome, Sleep Apnea on CPAP, Heparin Induced Thrombocytopenia, and Ambulatory Dysfunction that is seen for follow up. The patient has urinary frequency for two weeks. No fever or chills. Appetite is good. Weight is up. Leg edema has worsened. Chronic shortnessof breath is stable. She wears oxygen at all times. No chest pain is present. The patient has nonhealing right leg dermatitis. Patient Active Problem List Diagnosis Code Dyslipidemia [...] Morbid obesity with BMI of 50.0-59.9, adult ([facility]) E66.01, Z68.43 Controlled substance agreement signed Z79.899 Chronic diastolic congestive heart failure ([facility]) I50.32 Mild episode of recurrent major depressive disorder ([facility]) F33.0 Lumbar radiculopathy M54.16 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, NYHA class 1 and CKD stage 3 ([facility]) I13.0, I50.30, N18.30 Hyperparathyroidism, secondary renal ([facility]) N25.81 Vasculitis ([facility]) I77.6 Primary osteoarthritis of left knee M17.12 Spinal stenosis of lumbar region without neurogenic claudication M48.061 Type 2 diabetes mellitus with diabetic chronic kidney disease ([facility]) E11.22 Heparin induced thrombocytopenia (HIT) ([facility]) D75.82 Atherosclerosis of [place] coronary artery without angina pectoris I25.10 Carotid artery stenosis, asymptomatic, right I65.21 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 Encounter for long-term (current) use of other medications Z79.899 Type 2 diabetes mellitus with stage 3b chronic kidney disease ([facility]) E11.22, N18.32 Type 2 diabetes mellitus with hemoglobin A1c goal of less than 8.0% ([facility]) E11.9 Recurrent deep vein thrombosis (DVT) of both lower extremities ([facility]) I82.403 Chronic hypoxemic respiratory failure ([facility]) J96.11 Current Outpatient Medications Medication Sig Dispense Refill docusate sodium (STOOL SOFTENER) 100 MG Capsule Take 100 mg by mouth 2 times a day as needed for Constipation. oxygen GAS 2 lpm continuous omeprazole (PRILOSEC) [...] Do not take unless instructed by provider Potassium Chloride Ayleen ER 10 MEQ Oral [...] needed for worsening swelling. 135 Tablet 0 traZODone HCl 50 MG Oral Tablet (Desyrel) Take by mouth 1 Tablet before bedtime. 90 Tablet 0 Cyclobenzaprine HCl 10 MG Oral [...] TOTAL OF 90 MG 100 Capsule 0 Levothyroxine Sodium 200 MCG Oral Tablet (Levoxyl) TAKE ONE TABLET BY MOUTH IN THE MORNING AT LEAST 30 MINUTES PRIOR TO BREAKFAST OR OTHER MEDS 100 Tablet 0 DULoxetine HCl 60 MG Oral Capsule Delayed Release Particles (Cymbalta) Take by mouth 1 Capsule in the morning. Along with 30 mg capsule to total 90 mg daily.. 100 Capsule 1 Ventolin HFA 108 (90 Base) MCG/ACT Inhalation Aerosol Solution Inhale by mouth 2 Puffs every 4 hours as needed for Cough, Shortness of Breath or Wheezing. 18 g 3 Azelastine HCl 0.1 % Nasal Solution Administer into nostril 1 Carson in the morning AND 1 Carson before bedtime. 30 mL 12 traMADol HCl 50 MG Oral Tablet (Ultram) Take by mouth 1 Tablet every 8 hours as needed for Pain, Severe. 90 Tablet 0 Nortriptyline HCl 50 MG Oral Capsule (Pamelor) TAKE ONE CAPSULE BY MOUTH AT BEDTIME 100 Capsule3 rOPINIRole HCl 2 MG Oral Tablet (Requip) TAKE ONE TABLET BY MOUTH AT BEDTIME 100 Tablet 3 clonazePAM 0.5 MG Oral Tablet (KlonoPIN) Take by mouth 1 Tablet in the morning AND 1 Tablet before bedtime. 60 Tablet 0 ONETOUCH DELICA LANCETS 33G MISC Check blood sugars 3-4 times daily 180 Each 5 ACCU-CHEK SOFTCLIX LANCETS MISC Test blood sugar three or four times daily as directed 400 Each3 DIURETIC TITRATION PLAN If no improvement on day 3, contact heart failure managing provider. 1 Each 0 Blood Glucose Monitoring Suppl (ONETOUCH ULTRA 2) w/Device KIT Use to test BG values 1 Kit 0 Nerve Pain Relief Sublingual Tablet Sublingual Take by mouth . BD Pen Needle Short U/F 31G X 8 MM (Insulin Pen Needle) use five times daily 500 Each 3 OneTouch Ultra Blue In Vitro Strip (Glucose Blood) Check sugars 3-4 times daily, E11.9 [address] Device Use as directed . Dexcom G6 Sensor Use as directed . Dexcom G6 Transmitter Use as directed . Current Facility-Administered Medications Medication Dose Route Frequency [...] vein thrombosis (DVT) of both lower extremities ([facility]) 01/07/2022 Sleep apnea, obstructive Spinal stenosis of lumbar region without neurogenic claudication 07/15/2020 Spontaneous pneumothorax 09/14/2009 Statin intolerance 07/16/2014 Type 2 diabetes mellitus with hemoglobin A1c goal of less than 8.0% ([facility]) 01/07/2022 Past Surgical History: Procedure Laterality Date ARTHROPLASTY KNEE TOTAL Right 07/24/14 R COLONOSCOPY, DIAGNOSTIC (RECTUM) 02/18/2016 normal, repeat 10 yrs/[facility] COLONOSCOPY, GI REFERRAL OP 01/28/06 diverticulosis--repeat 10 years INCISION OF [place], PLANNED 06/03/2011 TRACHEOSTOMY PLANNED performed [place] DANNY HOLDER [place] [facility] [place]JECT DX/THER SUBSTANCE INTERLAMINAR LUMBAR/SACRAL W IMAGE [...] TUBE performed by AMADOU NUNEZ at [place] [facility] REMOVAL OF THYROID GLAND 06/15/2011 THYROIDECTOMY INCLUDING SUBSTERNAL THYROID CERVICAL APPROACH performed by DANNY HOLDER at [place] [facility] REMOVE GALLBLADDER 09/06/09 CHOLECYSTECTOMY performed by AMADOU NUNEZ at [place] [facility] REPAIR RECURRENT INCISIONAL HERNIA 1998 REVISION OF COLOSTOMY, SIMPLE 1998 SACROILIAC JOINT INJECT W/GUIDANCE 07/28/2020 INJECTION SACROILIAC JOINT performed by Raj Ahn DO at [facility] SACROILIAC JOINT INJECT W/GUIDANCE 03/03/2022 INJECTION SACROILIAC JOINT performed by Raj Ahn DO at OR [facility] SUTURE, LARGE INTESTINE W/COLOSTOMY 1996 perforation R colon with colostomy VENA CAVA FILTER/LIGATION/CLIP 08/19/09 Landrum filter placement through the right femoral 08/19/[address] Lerma at [facility] Review of patient's allergies indicates: Allergen Reactions Jardiance [Empagliflozin] Other (Please comment) 3 yeast infections in 6 weeks after starting Codeine hallucination Hay Fever [Pollen] Heparin Heparin Induced Thrombocytopenia Hydrocodone Neuro complications (Please comment) Morphine And Related Hallucinations Tetanus Toxoid Other (Please comment) Passed out Review of Systems Constitutional: Positive for fatigue and unexpected weight change. Negative for appetite change andfever. HENT: Negative for congestion, sore throat and trouble swallowing. Respiratory: Positive for shortness of breath. Negative for cough and wheezing. Cardiovascular: Positive for leg swelling. Negative for chest pain and palpitations. Gastrointestinal: Negative for abdominal pain, blood in stool, constipation, diarrhea, nausea and vomiting. Genitourinary: Positive for difficulty urinating and frequency. Negative for dysuria and hematuria. Musculoskeletal: Positive for arthralgias, back pain, gait problem and myalgias. Neurological: Negative for dizziness, syncope and headaches. Psychiatric/Behavioral: Negative for confusion, decreased concentration and sleep disturbance. OBJECTIVE: BP 130/76 | Pulse 104 | Temp 36.1 C (97 F) | Resp 16 | Ht 1.676 m (5' 6") | Wt (!) 154.7 kg (341 lb 1.6 oz) | LMP 03/11/2003 | SpO2 93% | BMI 55.05 kg/m | BSA 2.68 m Physical Exam Vitals and nursing note [...] AND ASSESSMENT: Type 2 diabetes mellitus with hemoglobin A1c goal of less than 8.0% ([facility]) (Primary) - HEMOGLOBIN A1C; Future; Expected date: 05/12/2022 Continue Sol Peres, Novolog Restart Metformin if Creatinine is stable Urinary frequency - URINALYSIS, POINT OF CARE (ENTER/EDIT) - CULTURE, URINE, QUANTITATIVE; Future; Expected date: 05/12/2022 Postsurgical hypothyroidism Essential hypertension with goal blood pressure less than 140/90 - BASIC METABOLIC PANEL; Future; Expected date: 05/12/2022 History of pulmonary embolus (PE) Continue Apixaban Statin intolerance Fibromyalgia Continue Duloxetine, gabapentin, and tramadol Restless legs syndrome Continue Ropinirole Gastroesophageal reflux disease with esophagitis without hemorrhage Continue Omeprazole Type 2 diabetes mellitus with stage 3b chronic kidney disease, with long-term current use of insulin ([facility]) Spinal stenosis of lumbar region without neurogenic claudication Atherosclerosis of [place] coronary artery of [place] heart without angina pectoris Carotid artery stenosis, asymptomatic, right Continue to follow with Vascular. Repeat carotid doppler in 10/2022 Venous stasis dermatitis of right lower extremity - DERMATOLOGY REFERRAL OP Risk and functional assessment Anxiety state - clonazePAM 0.5 MG Oral Tablet (KlonoPIN); Take by mouth 1 Tablet in the morning AND 1 Tablet before bedtime. I have reviewed the patients controlled substance dispensing history in the Prescription Drug Monitoring Program in compliance with the [facility] regulations before prescribing a controlled substance. Chronic diastolic congestive heart failure (HCC) Continue Furosemide Take Metolazone 2.5 mg x 1 dose this week Follow-up: Return in about 4 months (around 09/11/2022), or if symptoms worsen or fail to improve. | Check-out note: Schedule with dermatology Galdino Andujar DO 2:42 PM 05/12/2022 documented in this encounter Nursing Notes * RT Tri (R) - 05/12/2022 3:09 PM EDT Labs and urine collected per order and sent to [facility] Urine culture and urine specimen container both sent. * Shira Gross LPN - 05/12/2022 2:08 PM EDT Had fever last week, very fatigued. Does have some dysuria. documented in this encounter Plan of Treatment Upcoming Encounters Date Type Specialty Care Team Description 06/23/2022 Office Visit [facility], Pharmacist [address] [place] [address] 07/22/2022 Office Visit Dermatology Micki Hernández MD [address] [facility] [place] [address] 07/28/2022 Imaging Radiology 07/28/2022 PulmDiagnostic Pulmonary Function [place], [address] [facility] [place] [id number] 08/05/[address] [facility], Nurse Annual Wellness Visit [address] [facility] [address] [place] [address] 08/25/2022 Office Visit Pulmonary Nikita Sanchez MD [address] [place] [id number] 09/13/2022 Office Visit [facility] Medicine Galdino Andujar DO [address] [place] [address] Scheduled Orders Name Type Priority Associated Diagnoses Orde r Schedule HEMOGLOBIN A1C Lab Routine Type 2 diabetes mellitus with hemoglobin A1c goal of less than 8.0% (HCC) Expected: 05/12/2022 (Approximate), Expires: 05/12/2023 BASIC METABOLIC PANEL Lab Routine Essential hypertension with goal blood pressure less than 140/90 Expected: 05/12/2022 (Approximate), Expires: 05/12/2023 URINALYSIS, POINT OF CARE (ENTER/EDIT) Point of Care Testing Routine Urinary frequency Ordered: 05/12/2022 CULTURE, URINE, QUANTITATIVE Lab Routine Urinary frequency Expected: 05/12/2022, Expires: 05/12/2023 Scheduled Procedures Name Priority Associated Diagnoses Date/Ti me COLONOSCOPY FLEXIBLE PROXIMAL DIAGNOSTIC Recall Colon cancer screening Scheduled Referrals Name Type Priority Associated Diagnoses Orde r Schedule DERMATOLOGY REFERRAL OP Referral Within 10 days (routine) Venous stasis dermatitis of right lower extremity Ordered: 05/12/2022 Health Maintenance Due Date Last Done Comments [...] Additional history exists CKD HGB USE SMARTSET 68759 01/07/202301/07, 01/07/2022, 12/26/2021, Additional history exists CKD PHOS USE SMARTSET 41014 01/07/202312/25, 03/12/2021, 11/17/2020, Additional history exists DIABETES-FOOT EXAM 01/07/2023 01/07/2022, 0 01/14/2021, 11/07/2019, Additional history exists Depression Screening, Annual for Pts 12 and Over 01/07/2023 01/07/2022, 06/12/2018 TSH FOR THYROID MEDICATION MONITORING YEARLY 01/07/2023 01/07/2022, 12/25/2020, 05/06/2020, Additional history exists Mammogram 02/12/2024 02/11/2022, 02/2021, [...] goal of less than 8.0% (HCC)- Primary Urinary frequency Postsurgical hypothyroidism Essential hypertension with goal blood pressure less than 140/90 History of pulmonary embolus (PE) Personal history of pulmonary embolism Statin intolerance Other drug allergy Fibromyalgia Mylagia and myositis, unspecified Restless legs syndrome Restless legs syndrome (RLS) Gastroesophageal reflux disease with esophagitis without hemorrhage Type 2 diabetes mellitus with stage 3b chronic kidney disease, with long-term current use of insulin (HCC) Spinal stenosis of lumbar region without neurogenic claudication Spinal stenosis, lumbar region, without neurogenic claudication Atherosclerosis of [place] coronary artery of [place] heart without angina pectoris Carotid artery stenosis, asymptomatic, right Venous stasis dermatitis of right lower extremity Risk and functional assessment Screening for unspecified condition Anxiety state Anxiety state, unspecified Chronic diastolic congestive heart failure (HCC) Chronic diastolic heart failure documented in this encounter Advance Directives Documents on File Type Date Recorded Patient Automobile Seat Cover Installer Expl anation Advanced Directive Advanced Directive [...] Camp Other Health Care Hayden r of Power Press Operator Princess Staplesfany Other Health Care Pow er of Power Press Operator Care Teams Rider Ticket Worker Relationship Specialty Start Date End Date Galdino Andujar, DO [address] [place] [address] PCP - General Internal Medicine 01/07/22 documented as of this encounter
--- OUTSIDE RECORDS SUMMARY | 2023-06-01 04:35 | External Medical Summary | Summary of Care ---
Author Name Unknown Organization [place] [address] Care Team Providers Care Machine Repair Person Name Role Phone Lexii Andujar DO Primary Care Provider [phone] Reason for Visit * Reason Onset Date Comments Medication Refill 06/04/2022 Encounter Details Date Type Department Care Team Description 06/04/2022 Refill Family Practice 65 [facility] [place] [address] [place] [phone] Lexii Andujar DO [address] [place] [address] Chronic pain syndrome Allergies Active Allergy Reactions Severity Noted Date Comments Codeine 07/08/2014 hallucination Pollen 05/18/2019 Heparin 09/04/2009 Heparin Induced Thrombocytopenia Hydrocodone Neuro complications (Please comment) 07/28/2020 Empagliflozin Other (Please comment) Medium 05/17/2018 3 yeast infections in 6 weeks after starting Morphine And Related 09/16/1997 Hallucinations Tetanus Toxoid Other (Please comment) 06/15/2011 Passed out documented as of this encounter (statuses as of 06/08/2022) Medications Medication Sig Dispensed Refills Start Date [...] 0 04/08/2020 Active Blood Glucose Monitoring Suppl (PV Nano CellUCH ULTRA 2) w/Device KIT Use to test [...] % Nasal Solution Administer into nostril 1 [place] in the morning AND 1 [place] before bedtime. 30 mL 12 02/18/2022 Active Nortriptyline HCl 50 MG Oral Capsule (Pamelor)Indication s:Fibromyalgia TAKE ONE CAPSULE BY MOUTH AT BEDTIME 100 Capsule 3 04/01/2022 Active Dexcom G6 Donor Specialist Device Use as directed . Supplied by [employer], [employer]. [phone] 0 Active Dexcom G6 Sensor Use as directed . Change every 10 days Supplied by [employer], [employer]. [phone] 0 Active Dexcom G6 Transmitter Use as directed . Change every 90 days Supplied by [employer]. [phone] Active rOPINIRole HCl 2 MG Oral [...] Pain, Severe. 90 Tablet 0 06/08/2022 Active traZODone HCl 50 MG Oral Tablet (Desyrel) Take by mouth 1 Tablet before bedtime. 90 Tablet 0 11/04/2021 06/04/20 22 Discontinu ed(Refill) Levothyroxine Sodium 200 MCG Oral Tablet (Levoxyl)Indication s:Postsurgical hypothyroidism TAKE ONE TABLET BY MOUTH IN THE MORNING AT LEAST 30 MINUTES PRIOR TO BREAKFAST OR OTHER MEDS 100 Tablet 0 02/18/2022 06/04/20 22 Discontinu ed(Refill) DULoxetine HCl 60 MG Oral Capsule Delayed Release Particles (Cymbalta)Indicatio ns:Fibromyalgia,Mod erate episode of recurrent major depressive disorder (HCC),Primary osteoarthritis of both knees Take by mouth 1 Capsule in the morning. Along with 30 mg capsule to total 90 mg daily.. 100 Capsule 1 02/18/2022 06/04/20 22 Discontinu ed(Refill) traMADol HCl 50 MG Oral Tablet (Ultram)Indications :Chronic pain syndrome Take by mouth 1 Tablet every 8 hours as needed for Pain, Severe. 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/31/2021 Atherosclerosis of [place] coronary arter y without angina pectoris 12/31/2021 [...] 03/25/2016 Fibromyalgia 02/02/2016 Abnormality of gait 02/02/[address] 08/19/2014 History of pulmonary [...] as of this encounter (statuses as of 06/08/2022) Resolved Problems Problem Noted Date Resolved Date [...] as of this encounter (statuses as of 06/08/2022) Immunizations Name Administration Dates Next Due COVID-19 mRNA, LNP-s, No Pre serve, 2-Dose Series (daPulse) 12/29/2020,12/18/2020 COVID-19, LNP-s, No Preserve , Navarro-sucrose, Ages 12+ (Pfizer) 2022,10/01/2021 Pneumococcal Conjugate Vacci ne, 20-valent (Ubatleq50) 03/12/2022 Pneumococcal Polysaccharide PPV23 (Pneumovax) 08/22/2009,06/15/2006 Seasonal [...] Telephone Encounter - Lexii Andujar DO - 06/08/2022 12:13 PM EDT Signed Prescriptions: Disp Refills traMADol HCl 50 MG Oral Tablet (Ultram) 90 Tab*0 Sig: Take by mouth 1 Tablet every 8 hours as needed for Pain, Severe.Authorizing Provider: LEXII ANDUJAR * Telephone Encounter - Lexii Andujar DO - 06/08/2022 12:12 PM EDT I have reviewed the patients controlled substance dispensing history in the Prescription Drug Monitoring Program in compliance with the [facility] regulations before prescribing a controlled substance. Last Tox Screen Results: No results found. However, due to the size of the patient record, not all encounters were searched.Please check Results Review for a complete set of results. Medication is due * Telephone Encounter - Shira Gross LPN - 06/07/2022 4:59 PM EDT Pending Prescriptions: Disp Refills traMADol HCl 50 MG Oral Tablet (Ultram) 90 Tab*0 Sig: Take by mouth 1 Tablet every 8 hours as needed for Pain, Severe. * Telephone Encounter - Shira Gross LPN - 06/07/2022 4:59 PM EDT Pending Prescriptions: Disp Refills traMADol HCl 50 MG Oral Tablet (Ultram) 90 Tab*0 Sig: Take by mouth 1 Tablet every 8 hours as needed for Pain, Severe. * Telephone Encounter - Shira Gross LPN - 06/07/2022 4:57 PM EDT Did you pend patient's preferred pharmacy and medication before forwarding?yes [id number] [address] [place] Pending Prescriptions: Disp Refills traMADol HCl 50 MG Oral Tablet (Ultram) 90 Tab*0 Sig: Take by mouth 1 Tablet every 8 hours as needed for Pain, Severe. Last Visit: 05/12/2022 (in office), 03/15/2022 (telemedicine) Next Visit: 06/23/2022 If no future appointments scheduled, and last appointment is greater than a year ago, please schedule patient for a follow-up appointment Last date the medication was ordered: 03/12/2022 Is this request for a controlled substance?Yes, What was the last refill date as per chqart w/ quantity as per chart and dosage as per chart and Urine Drug Screen Not completed Urine Drug Screen:No results found. However, due to the size of the patient record, not all encounters were searched. Please check Results Review for a complete set of results. Patient Phone Numbers Labs: Lab Results Component Value Date/Time CREAT 1.3 (H) 05/12/2022 03:04 PM CREAT 1.54 (A) 12/26/2021 12:00 AM CREAT 2.0 (H) 05/06/2020 08:46 AM POTASSIUM 4.4 05/12/2022 03:04 PM POTASSIUM 3.6 12/26/2021 12:00 AM POTASSIUM 4.0 05/06/2020 08:46 AM TSH 0.95 01/07/2022 11:56 AM TSH 5.35 (H) 05/06/2020 08:46 AM LDLCALC UNINTERPRETABLE RESULT 03/14/2019 01:54 PM LDLDIRECT 126 03/14/2019 01:54 PM LDLDIRECT 109 07/14/2017 12:35 PM ALT 27 05/06/2020 08:46 AM HGBA1C 7.6 (H) 05/12/2022 03:04 PM HGBA1C 7.3 (H) 01/23/2020 11:11 AM * Telephone Encounter - ELISSA Salguero - 06/04/2022 12:34 PM EDT Pending Prescriptions: Disp Refills traMADol HCl 50 MG Oral Tablet (Ultram) 90 Tab*0 Sig: Take by mouth 1 Tablet every 8 hours as needed for Pain, Severe. [id number] [facility] [address] documented in this encounter Plan of Treatment Upcoming Encounters Date Type Specialty Care Team Description 06/23/2022 Office Visit [facility], Pharmacist 65 [facility] 293 [place] [place] [address] 07/22/2022 Office Visit Dermatology Micki Hernández MD [address] [place] [address] 07/28/2022 Imaging Radiology 07/28/2022 PulmDiagnostic Pulmonary Function West, [address] [facility] [place] [address] 08/05/2022 Nurse Only [facility], Nurse Annual Wellness Visit 65 [facility] 293 [place] [place] [address] 08/25/2022 Office Visit Pulmonary [facility] [address] [facility] [address] 09/13/2022 Office Visit [facility] Medicine Lexii Andujar, [address] [facility] [place] [address] Scheduled Procedures Name Priority Associated Diagnoses Date/Ti [...] Additional history exists CKD HGB USE SMARTSET 36091 01/07/202301/07, 01/07/2022, 12/26/2021, Additional history exists CKD PHOS USE SMARTSET 45992 01/07/202312/25, 03/12/2021, 11/17/2020, Additional history exists DIABETES-FOOT [...] of this encounter Visit Diagnoses Diagnosis Chronic pain syndrome documented in this encounter Advance Directives Documents on File Type Date Recorded Patient Coil Winding Supervisor Expl anation Advanced Directive Advanced Directive Advanced [...] Camp Other Health Care Hayden r of Print Producer Princess Allen Other Health Care Pow er of Print Producer Care Teams Machine Repair Person Relationship Specialty Start Date End Date Lexii Andujar, DO [address] [place] [address] PCP - General Internal Medicine 01/07/22 documented as of this encounter
--- OUTSIDE RECORDS SUMMARY | 2023-06-01 04:35 | External Medical Summary ---
Author Name Unknown Address Unknown Organization K01:[facility] - [address] [place] [address] Laboratory Report Ordering Provider Test Date Status JAG SHULTZ 05/12/2022 15:04:13 Final Observation Date Value Abnormality Reference (Units) Status Bacteria identified in Unspecified specimen by Culture 05/12/2022 15:04:13 No significant growth Final Performing Location [facility] - [address] [place] [address]
--- OUTSIDE RECORDS SUMMARY | 2023-06-01 04:35 | External Medical Summary ---
Author Name Unknown Address Unknown Organization K01:[facility] [place] - [address] [place] [address] Laboratory Report Ordering Provider Test Date Status JAG SHULTZ 05/12/2022 15:04:12 Final Observation Date Value Abnormality Reference (Units ) Status BUN 05/12/2022 15:04:12 21 Above high normal 6-20 (mg/dL) Final Creatinine 05/12/2022 15:04:12 1.3 Above high normal 0.5-1.0 (mg/dL) Final Glomerular filtration rate/1.73 sq M.predicted [Volume Rate/Area] in Serum, Plasma or Blood by Creatinine-based formula (CKD-EPI) 05/12/2022 15:04:12 45 Below low normal >=60 (mL/min) Final Performing Location [facility] - [address] [place] [address]
--- OUTSIDE RECORDS SUMMARY | 2023-06-01 04:35 | External Medical Summary ---
Author Name Unknown Address Unknown Organization K01:[facility] [place] [address] [place] [address] [place] [id number] Laboratory Report Ordering Provider Test Date Status JAG SHULTZ 06/09/2022 16:51:27 Final Observation Date Value Abnormality Reference (Units ) Status SARS Coronavirus 2 06/09/2022 16:51:27 Negative N egative Final Performing Location LABORATORY [facility] - [address] [place] [id number]
--- OUTSIDE RECORDS SUMMARY | 2023-06-01 04:35 | External Medical Summary ---
Author Name Unknown Address Unknown Organization K01:[facility] [place] - [address] [place] [address] Laboratory Report Ordering Provider Test Date Status JAG SHULTZ 05/12/2022 15:04:13 Final Observation Date Value Abnormality Reference (Units ) Status HbA1C 05/12/2022 15:04:13 7.6 Above high normal 4. 0-5.6 (%) Final Performing Location LABORATORY [facility] - [address] [place] [address]
--- OUTSIDE RECORDS SUMMARY | 2023-06-01 04:35 | External Medical Summary | Summary of Care ---
Author Name Unknown Organization [place] [address] Care Team Providers Care Motorsports Technician Name Role Phone Lexii Andujar DO Primary Care Provider [phone] Reason for Visit * Reason Onset Date Comments Medication Refill 06/04/2022 Encounter Details Date Type Department Care Team Description 06/04/2022 Refill Family Practice [address], [place] [address] [place] [phone] Lexii Andujar DO [address] [place] [address] Fibromyalgia; Moderate episode of recurrent major depressive disorder (HCC); Primary osteoarthritis of both knees; POSTSURGICAL HYPOTHYROID Allergies Active Allergy Reactions Severity [...] 0 04/08/2020 Active Blood Glucose Monitoring Suppl ([employer] ULTRA 2) w/Device KIT Use to [...] % Nasal Solution Administer into nostril 1 [place] in the morning AND 1 [place] before bedtime. 30 mL 12 02/18/2022 Active traMADol HCl 50 MG Oral Tablet (Ultram)Indications :Chronic pain syndrome Take by mouth 1 Tablet every 8 hours as needed for Pain, Severe. 90 Tablet 0 03/12/2022 Active Nortriptyline HCl 50 MG Oral Capsule (Pamelor)Indication s:Fibromyalgia TAKE ONE CAPSULE BY MOUTH AT BEDTIME 100 Capsule 3 04/01/2022 Active Dexcom G6 Elastic Tape Inserter Device Use as directed . Supplied by [employer]. [phone] 0 Active Dexcom G6 Sensor Use as directed . Change every 10 days Supplied by [employer]. [phone] Active Dexcom G6 Transmitter Use as directed . Change every 90 days Supplied by [employer]. [phone] Active rOPINIRole HCl 2 MG Oral [...] (FORMERLY [facility]) Take by mouth 1 Tablet in [...] before bedtime. 100 Tablet 3 06/08/2022 Active traZODone HCl [...] Capsule 1 02/18/2022 06/04/20 22 Discontinu ed(Refill) Hospital, Clinic, or [...] mRNA, LNP-s, No Pre serve, 2-Dose Series (GroupTalent) 12/29/2020,12/18/2020 COVID-19, LNP-s, No Preserve , Navarro-sucrose, Ages 12+ (Pfizer) 2022,10/01/2021 Pneumococcal Conjugate Vacci ne, 20-valent ([id number]) 03/12/2022 Pneumococcal Polysaccharide PPV23 (Pneumovax) 08/22/2009,06/15/2006 Seasonal [...] Encounter - Lexii Andujar DO - 06/08/2022 7:14 AM EDT Signed Prescriptions: Disp Refills DULoxetine HCl 60 MG Oral Capsule Delayed *100 Ca*3 Sig: Take by mouth 1 Capsule in the morning. Along with 30 mg capsule to total 90 mg daily..Authorizing Provider: LEXII ANDUJAR Levothyroxine Sodium 200 MCG Oral Tablet (*100 Ta*3 Sig: TAKE ONE TABLET BY MOUTHIN THE MORNING AT LEAST 30 MINUTES PRIOR TO BREAKFAST OR OTHER MEDSAuthorizing Provider:LEXII ANDUJAR traZODone HCl 50 MG Oral Tablet (Desyrel) 100 Ta*3 Sig: Take by mouth 1 Tablet before bedtime.Authorizing Provider: LEXII ANDUJAR * Telephone Encounter - Shira Gross LPN - 06/07/2022 5:00 PM EDT Pending Prescriptions: Disp Refills DULoxetine HCl 60 MG Oral Capsule Delayed *100 Ca*3 Sig: Take by mouth 1 Capsule in the morning. Along with 30 mg capsule to total 90 mg daily.. Levothyroxine Sodium 200 MCG Oral Tablet (*100 Ta*3 Sig: TAKE ONE TABLET BY MOUTH IN THE MORNING AT LEAST 30 MINUTES PRIOR TO BREAKFAST OR OTHER MEDS traZODone HCl 50 MG Oral Tab let (Desyrel) 100 Ta*3 Sig: Take by mouth 1 Tablet before bedtime. * Telephone Encounter - Shira Gross LPN - 06/07/2022 5:00 PM EDT Pending Prescriptions: Disp Refills DULoxetine HCl 60 MG Oral Capsule Delayed*100 Ca*3 Sig: Take by mouth 1 Capsule in the morning. Along with 30 mg capsule to total 90 mg daily.. Levothyroxine Sodium 200 MCG Oral Tablet *100 Ta*3 Sig: TAKE ONE TABLET BY MOUTH IN THE MORNING AT LEAST 30 MINUTES PRIOR TO BREAKFAST OR OTHER MEDS traZODone HCl 50 MG Or al Tablet (Desyrel) 100 Ta*3 Sig: Take by mouth 1 Tablet before bedtime. * Telephone Encounter - Shira Gross LPN - 06/07/2022 4:59 PM EDT Did you pend patient's preferred pharmacy and medication before forwarding?yes Pharmacy: [facility]- [place] Pending Prescriptions: Disp Refills DULoxetine HCl 60 MG Oral Capsule Delayed*100 Ca*3 Sig: Take by mouth 1 Capsule in the morning. Along with 30 mg capsule to total 90 mg daily.. Levothyroxine Sodium 200 MCG Oral Tablet *100 Ta*3 Sig: TAKE ONE TABLET BY MOUTH IN THE MORNING AT LEAST 30 MINUTES PRIOR TO BREAKFAST OR OTHER MEDS traZODone HCl 50 MG Oral Tablet (Desyrel) 100 Ta*3 Sig: Take by mouth 1 Tablet before bedtime. Last Visit: 05/12/2022 (in office), 03/15/2022 (telemedicine) [...] 01/23/2020 11:11 AM * Telephone Encounter - ELSISA Salguero - 06/04/2022 12:37 PM EDT Pt called requesting med refill on Pending Prescriptions: Disp Refills DULoxetine HCl 60 MG Oral Capsule Delayed*100 Ca*1 Sig: Take by mouth 1 Capsule in the morning. Along with 30 mg capsule to total 90 mg daily.. Levothyroxine Sodium 200 MCG Oral Tablet *100 Ta*0 Sig: TAKE ONE TABLET BY MOUTH IN THE MORNING AT LEAST 30 MINUTES PRIOR TO BREAKFAST OR OTHER MEDS traZODone HCl 50 MG Oral Tablet (Desyrel) 90 Tab*0 Sig: Take by mouth 1 Tablet before bedtime. [facility]- [place] documented in this encounter Plan of Treatment Upcoming Encounters Date Type Specialty Care Team Description 06/23/2022 Office Visit [facility], Pharmacist [address] [place] [address] [address] [place] [address] 07/22/2022 Office Visit Dermatology Micki [facility] [address] 07/28/2022 Imaging Radiology 07/28/2022 PulmDiagnostic Pulmonary Function West, [address] [place] [address] 08/05/2022 Nurse Only [facility], Nurse Annual Wellness Visit [address] [place] [address] 08/25/2022 Office Visit Pulmonary Nikita Sanchez MD [address] [place] [address] 09/13/2022 Office Visit Family Medicine Lexii Andujar, [address] [place] [address] Scheduled Procedures Name Priority Associated Diagnoses Date/Ti [...] Additional history exists CKD HGB USE SMARTSET 29977 01/07/202301/07, 01/07/2022, 12/26/2021, Additional history exists CKD PHOS USE SMARTSET 78445 01/07/2023 04/12/2021, 03/12/2021, 11/17/2020, Additional history exists DIABETES-FOOT EXAM 01/07/2023 01/07/2022, 0 01/14/2021, 11/07/2019, Additional history exists TSH FOR THYROID MEDICATION MONITORING YEARLY 01/07/2023 01/07/2022, 12/25/2020, 05/06/2020, Additional history exists Depression Screening, Annual for Pts 12 and Over 05/12/2023 05/12/2022, 06/12/2018 DIABETES-EYE EXAM 05/24/2023 05/24/2022, , 04/07/2020, Additional history exists Mammogram 02/12/2024 02/11/2022, /02/2021, 07/10/2019, Additional history [...] Diagnoses Diagnosis Fibromyalgia Mylagia and myositis, unspecified Moderate episode of recurrent major depressive disorder (HCC) Primary osteoarthritis of both knees Primary localized osteoarthrosis, lower leg POSTSURGICAL HYPOTHYROID Postsurgical hypothyroidism documented in this encounter Advance Directives Documents on File Type Date Recorded Patient Wiping Rag Washer Expl anation Advanced Directive Advanced Directive Advanced [...] Camp Other Health Care Hayden r of Lawn Mower Mechanic Princess Allen Other Health Care Pow er of Lawn Mower Mechanic Care Teams Motorsports Technician Relationship Specialty Start Date End Date Lexii Andujar, DO [address] [place] [address] PCP - General Internal Medicine 01/07/22 documented as of this encounter
--- OUTSIDE RECORDS SUMMARY | 2023-06-01 04:35 | External Medical Summary | Summary of Care ---
Author Name Unknown Organization [place] [address] Care Team Providers Care Destination Sign Repairer Name Role Phone Galdino Andujar DO Primary Care Provider [phone] Reason for Visit * Reason Onset Date Comments Advice 06/09/2022 Encounter Details Date Type Department Care Team Description 06/09/2022 Telephone Family Practice 65 [facility] [place] [place] [address] [place] [address] Galdino Andujar DO [address] [place], [place] [phone] Advice Allergies Active Allergy Reactions Severity Noted [...] 90 Cap 3 12/18/2019 Active DIURETIC TITRATION PLANIndications: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 1 Each 0 04/08/2020 Active Blood Glucose Monitoring Suppl (Aware LabsUCH ULTRA 2) w/Device KIT Use to test [...] of 7.0%-8.0% ([facility]) Inject under the skin 60 [...] % Nasal Solution Administer into nostril 1 [place] in the morning AND 1 [place] before bedtime. 30 mL 12 02/18/2022 Active Nortriptyline HCl 50 MG Oral Capsule (Pamelor)Indications :Fibromyalgia TAKE ONE CAPSULE BY MOUTH AT BEDTIME 100 Capsule 3 04/01/2022 Active Dexcom G6 Recycling Or Rubbish Collector Device Use as directed . Supplied by [employer], [employer]. [phone] 0 Active Dexcom G6 Sensor Use as directed . Change every 10 days Supplied by [employer], [employer]. [phone] 0 Active Dexcom G6 Transmitter Use as directed . Change every 90 days Supplied by [employer], [facility]. 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/31/2021 Atherosclerosis of three affiliated coronary arter y without angina pectoris 12/31/2021 [...] 03/25/2016 Fibromyalgia 02/02/2016 Abnormality of gait 02/02/[address] 08/19/2014 History of pulmonary [...] mRNA, LNP-s, No Pre serve, 2-Dose Series ([employer]) 12/29/2020,12/18/2020 COVID-19, LNP-s, No Preserve , Navarro-sucrose, Ages 12+ (Pfizer) 2022,10/01/2021 Pneumococcal Conjugate Vacci ne, 20-valent ([id number]) 03/12/2022 Pneumococcal Polysaccharide PPV23 (Pneumovax) 08/22/2009,06/15/2006 Seasonal [...] Specialty Care Team Description 06/09/2022 Office Visit [facility] Medicine Galdino Andujar, [address] [facility] [place] [address] 06/23/2022 Office Visit [facility], Pharmacist [address] [facility] [place] [address] 07/22/2022 Office Visit Dermatology Micki Hernández MD 200 [facility] [place] [address] 07/28/2022 Imaging Radiology 07/28/2022 PulmDiagnostic Pulmonary Function West, [address] [place] [address] 08/05/2022 Nurse Only [facility], Nurse Annual Wellness Visit [address] [facility] [place] [address] 08/25/2022 Office Visit Pulmonary Nikita Sanchez MD [address] [place] [facility] [place] [address] 09/13/2022 Office Visit Family Medicine Galdino Andujar, DO [address] [facility] [place] [address] Scheduled Orders Name Type Priority Associated Diagnoses [...] Additional history exists CKD HGB USE SMARTSET 01890 01/07/202301/07, 01/07/2022, 12/26/2021, Additional history exists CKD PHOS USE SMARTSET 55443 01/07/202312/25, 03/12/2021, 11/17/2020, Additional history exists DIABETES-FOOT EXAM 01/07/2023 01/07/2022, 0 01/14/2021, 11/07/2019, Additional history exists TSH FOR THYROID MEDICATION MONITORING YEARLY 01/07/2023 01/07/2022, 12/25/2020, 05/06/2020, Additional history exists Depression Screening, Annual for Pts 12 and Over 05/12/2023 05/12/2022, 06/12/2018 DIABETES-EYE EXAM 05/24/2023 05/24/2022, , 04/07/2020, Additional history exists Mammogram 02/12/2024 02/11/2022, 0102/2021, 07/10/2019, Additional history [...] on File Type Date Recorded Patient Outside Food Server Expl anation Advanced Directive Advanced Directive Advanced [...] Camp Other Health Care Hayden r of Cardiac Surgeon Princess Allen Other Health Care Pow er of Cardiac Surgeon Care Teams Destination Sign Repairer Relationship Specialty Start Date End Date Galdino Andujar, DO [address] [place] [address] PCP - General Internal Medicine 01/07/22 documented as of this encounter
--- OUTSIDE RECORDS SUMMARY | 2023-06-01 04:36 | External Medical Summary | Summary of Care ---
Author Name Unknown Organization [place] [address] Care Team Providers Care Complaint Adjuster Name Role Phone Ziaandrews Galdino Neal DO Primary Care Provider [phone] Encounter Details Date Type Department Care Team Description 2022 Immunization Ancillary [address] [address] [place], Covid19 Vaccine 65 [place] [address] Encounter for immunization* Allergies Active Allergy Reactions Severity Noted Date Comments Codeine 07/08/2014 hallucination Pollen 05/18/2019 Heparin 09/04/2009 Heparin Induced Thrombocytopenia Hydrocodone Neuro complications (Please comment) 07/28/2020 Empagliflozin Other (Please comment) Medium 05/17/2018 3 yeast infections in 6 weeks after starting Morphine And Related 09/16/1997 Hallucinations Tetanus Toxoid Other (Please comment) 06/15/2011 Passed out documented as of this encounter (statuses as of 2022) Medications Medication Sig Dispensed Refills Start Date End Date Status docusate sodium (STOOL SOFTENER) 100 MG Capsule Take 100 mg by mouth 2 times a day as needed for Constipation. 0 Active ONETOUCH DELICA LANCETS 33G MISC Check blood sugars 3-4 times daily 180 Each 5 08/01/2018 Active oxygen GASIndications:ELISSA (obstructive sleep apnea) 2 LPM bled through CPAP 11 cwp during all periods of sleep and 2 LPM via NC with exertion. 0 11/28/2019 Active ACCU-CHEK SOFTCLIX LANCETS MISC Test blood sugar three or four times daily as directed 400 Each 3 12/18/2019 Active omeprazole (PRILOSEC) 20 MG CPDR Take 1 Cap by mouth daily. 90 Cap 3 12/18/2019 Active DIURETIC TITRATION PLANIndications:Director Skills 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 1 Each 0 04/08/2020 Active Blood Glucose Monitoring Suppl (OrthoScan ULTRA 2) w/Device KIT Use to test [...] before bedtime. 90 Tablet 0 11/04/2021 Active rOPINIRole HCl 2 MG Oral Tablet (Requip)Indications: Restless legs syndrome Take by mouth 1 Tablet before bedtime. 100 Tablet 1 11/05/2021 Active Cyclobenzaprine HCl 10 MG Oral Tablet [...] of 7.0%-8.0% ([facility]) Inject 40 units with meals + sliding scale 1 units for every 25 units BG > 150. 121 mL 3 11/04/2021 Active Tresiba FlexTouch 100 UNIT/ML Subcutaneous Solution Pen-injector (Insulin Degludec)Indications :Type 2 diabetes mellitus with hemoglobin A1c goal of 7.0%-8.0% ([facility]) Inject under the skin 60 Units in [...] % Nasal Solution Administer into nostril 1 [place] in the morning AND 1 [place] before bedtime. 30 mL 12 02/18/2022 Active clonazePAM 0.5 MG Oral Tablet (KlonoPIN)Indication s:Anxiety state Take by mouth 1 Tablet in the morning AND 1 Tablet before bedtime. 60 Tablet 0 03/12/2022 Active traMADol HCl 50 MG Oral Tablet (Ultram)Indications: Chronic pain syndrome Take by mouth 1 Tablet every 8 hours as needed for Pain, Severe. 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 Vaginal karemn 07/13/2018 08/26/2018 Hypervolemia 07/13/2018 08/26/2018 Heparin-induced thrombocytopenia [...] as of this encounter (statuses as of 2022) Immunizations Name Administration Dates Next Due COVID-19 mRNA, LNP-s, No Pre serve, 2-Dose Series (Pfizer) 12/29/2020,12/18/2020 COVID-19, LNP-s, No Preserve , Navarro-sucrose, Ages 12+ (Pfizer) 2022 Pneumococcal Conjugate Vacci ne, 20-valent ([id number]) 03/12/2022 Pneumococcal Polysaccharide PPV23 (Pneumovax) 08/22/2009,06/15/2006 Seasonal [...] got money to buy more. Never true 11/07/2019 Within the past 12 months, t he food you bought just didn't last and you didn't have money to get more. Never true 11/07/2019 Sex Assigned at Date Recorded Female 11/07/2019 2:[address] Job Start Date Occupation Industry Not on file Not on file Not on file documented as of this encounter Plan of Treatment Upcoming Encounters Date Type Specialty Care Team Description 2022 Office Visit [facility], Pharmacist [address] [place] [address] Dexcom G6: Patient Education and Review 05/12/2022 Office Visit [facility] Galdino Andujar, 293 [facility] [place] [address] 05/12/2022 Office Visit [facility], Pharmacist [address] [place] [address] 07/28/2022 Imaging Radiology 07/28/2022 PulmDiagnostic Pulmonary Function [facility], Pft [address] [facility] [place] [address] 08/05/2022 Nurse Only Ancillary College, Nurse Annual Wellness Visit [address] [place] [address] 08/25/2022 Office Visit Pulmonary Nikita Sanchez MD [address] [place] [id number] Scheduled Procedures Name Priority Associated Diagnoses Date/Ti me COLONOSCOPY FLEXIBLE PROXIMAL DIAGNOSTIC Recall Colon cancer screening Health Maintenance Due Date Last Done Comments DXA Scan 1955 Cologuard: Ages 45-75 2000 FOBT: Ages 45-75 2000 Sigmoidoscopy: Ages 45-75 2000 DIABETES-EYE EXAM 04/14/2022 04/14/2021, , 04/05/2019, Additional history exists Influenza Vaccine (FLU shot) (#1) 2022 07/20/2021, 06/13/2020, 07/23/2019, Additional history exists DIABETES-HGBA1C EVERY 6 MONTHS 07/09/2022 01/07/2022, 11/17/2020, 01/23/2020, Additional history exists GFR - Renal Function 07/09/2022 01/07/2022, 12/26/2021, 12/07/2021, Additional history exists COVID-19 Vaccine (4 - Booster) 08/14/2022 2022, 12/29/2020, 12/18/2020 CKD HGB USE SMARTSET 52653 01/07/202301/07, 01/07/2022, 12/26/2021, Additional history exists CKD PHOS USE SMARTSET 61321 01/07/202312/25, 03/12/2021, 11/17/2020, Additional history exists DIABETES-FOOT EXAM 01/07/2023 01/07/2022, 0 01/14/2021, 11/07/2019, Additional history exists DIABETES-URINE ALBUMIN/CREATININE EVERY 12 MONTHS 01/07/2023 01/07/2022, 05/24/2019, 05/01/2018, Additional history exists Depression Screening, Annual for Pts 12 and Over 01/07/2023 01/07/2022, 06/12/2018 TSH FOR THYROID MEDICATION MONITORING YEARLY 01/07/2023 01/07/2022, 12/25/2020, 05/06/2020, Additional history exists BREAST CANCER SCREENING DISCUSSION YEARLY AGES 40-75 02/11/2023 02/11/2022, 10/01/2020, 07/10/2019, Additional history exists Colonoscopy: Ages 45-75 [...] this encounter Visit Diagnoses Diagnosis Encounter for immunization- Primary Need for other specified prophylactic vaccination against single bacterial disease documented in this encounter Advance Directives Documents on File Type Date Recorded Patient Platform Inspector Expl anation Advanced Directive Advanced Directive [...] Camp Other Health Care Hayden r of Community Service Worker Princess Allen Other Health Care Pow er of Community Service Worker Care Teams Complaint Adjuster Relationship Specialty Start Date End Date Galdino Andujar, DO [address] [place] [address] PCP - General Internal Medicine 01/07/22 documented as of this encounter
--- OUTSIDE RECORDS SUMMARY | 2023-06-01 04:36 | External Medical Summary | Summary of Care ---
Author Name Unknown Organization [place] [address] Care Team Providers Care Registered Art Therapist Name Role Phone Galdino Andujar DO Primary Care Provider [phone] Reason for Visit * Reason Onset Date Comments Scheduling 03/12/2022 Encounter Details Date Type Department Care Team Description 03/12/2022 Telephone Family Practice 65 [facility] [place] [address] [place] [address] Galdino Andujar DO [address] [place], [place] [id number] Scheduling Allergies Active Allergy Reactions Severity Noted Date Comments Codeine 07/08/2014 hallucination Pollen 05/18/2019 Heparin 09/04/2009 Heparin Induced Thrombocytopenia Hydrocodone Neuro complications (Please comment) 07/28/2020 Empagliflozin Other (Please comment) Medium 05/17/2018 3 yeast infections in 6 weeks after starting Morphine And Related 09/16/1997 Hallucinations Tetanus Toxoid Other (Please comment) 06/15/2011 Passed out documented as of this encounter (statuses as of 04/23/2022) Medications Medication Sig Dispensed Refills Start Date End Date Status docusate sodium (STOOL SOFTENER) 100 MG Capsule Take 100 mg by mouth 2 times a day as needed for Constipation. 0 Active ONETOUCH DELICA LANCETS 33G MISC Check blood sugars 3-4 times daily 180 Each 5 8 Active oxygen GASIndications:ELSISA (obstructive sleep apnea) 2 LPM bled through CPAP 11 cwp during all periods of sleep and 2 LPM via NC with exertion. 0 0 Active ACCU-CHEK SOFTCLIX LANCETS MISC [...] 0 0 Active Blood Glucose Monitoring Suppl (JAB Broadband ULTRA 2) w/Device KIT Use to test [...] 1 Active Nerve Pain Relief Sublingual Tablet SublingualIndicati ons:pt [...] times daily 500 Each 3 2 Active Furosemide 40 MG Oral Tablet (Lasix)Indications :Chronic diastolic congestive heart failure (HCC) Take by mouth 0.5 Tablets in the morning AND 0.5 Tablets before bedtime. May take an additional 20 mg 2 to 3 days per week as needed for worsening swelling. 135 Tablet 0 2 Active OneTouch Ultra Blue In Vitro Strip (Glucose Blood) Check sugars 3-4 times daily, E11.9 400 Strip 3 2 Active traZODone HCl 50 MG Oral Tablet (Desyrel) Take by mouth 1 Tablet before bedtime. 90 Tablet 0 2 Active Cyclobenzaprine HCl 10 MG Oral [...] in the morning. 45 mL 3 2 Active Apixaban 5 MG [...] 90 MG 100 Capsule 0 2 Active Levothyroxine Sodium 200 MCG Oral Tablet (Levoxyl)Indicatio ns:Postsurgical hypothyroidism TAKE ONE TABLET BY MOUTH IN THE MORNING AT LEAST 30 MINUTES PRIOR TO BREAKFAST OR OTHER MEDS 100 Tablet 0 2 Active DULoxetine HCl 60 MG Oral Capsule Delayed Release Particles (Cymbalta)Indicati ons:Fibromyalgia,M oderate episode of recurrent major depressive disorder (HCC),Primary osteoarthritis of both knees Take by mouth 1 Capsule in the morning. Along with 30 mg capsule to total 90 mg daily.. 100 Capsule 1 2 Active Ventolin HFA 108 (90 Base) MCG/ACT Inhalation Aerosol Solution Inhale by mouth 2 Puffs every 4 hours as needed for Cough, Shortness of Breath or Wheezing. 18 g 3 2 Active Azelastine HCl 0.1 % Nasal Solution Administer into nostril 1 [place] in the morning AND 1 [place] before bedtime. 30 mL 12 2 Active clonazePAM 0.5 MG Oral Tablet (KlonoPIN)Indicati ons:Anxiety state Take by mouth 1 Tablet in the morning AND 1 Tablet before bedtime. 60 Tablet 0 2 Active traMADol HCl 50 MG Oral Tablet (Ultram)Indication s:Chronic pain syndrome Take by mouth 1 Tablet every 8 hours as needed for Pain, Severe. 90 Tablet 0 2 Active clobetasol propionate (TEMOVATE) 0.05 % creamIndications:L ichen planus Apply to rash on the hands and dorsal feet twice daily x 1 week, then as needed for flares. 30 g 1 0 022 Discontinued(Pa tient preference/disc ontinuation) Magnesium Oxide 400 (241.3 Mg) MG Oral TabletIndications: Hypomagnesemia Take 400 mg by mouth daily. 90 Tab 0 0 022 Discontinued(Pa tient preference/disc ontinuation) Colchicine 0.6 MG Oral TabletIndications: Leukocytoclastic vasculitis (HCC) Take 1/2 tab daily 45 Tab 1 1 022 Discontinued(Pa tient preference/disc ontinuation) Lidocaine 4 % External Patch (HM Lidocaine Patch) Place topically on the skin 1 Patch daily . 0 022 Discontinued([place] w[place] preference/disc ontinuation) Nortriptyline HCl 50 MG Oral Capsule (Pamelor)Indicatio ns:Fibromyalgia Take by mouth 1 Capsule before bedtime. 100 Capsule 1 2 022 Discontinued rOPINIRole HCl 2 MG Oral Tablet (Requip)Indication s:Restless legs syndrome Take by mouth 1 Tablet before bedtime. 100 Tablet 1 2 022 Discontinued Fluticasone-Salmet jayson 115-21 MCG/ACT Inhalation Aerosol (Advair HFA) Inhale by mouth 2 Puffs in the morning AND 2 Puffs before bedtime. 12 g 12 2 022 Discontinued(Ad verse reaction) Hospital, Clinic, or Other Facility Administered Medication Ordered Dose Route Frequency Start Date End Date Status Albuterol Sulfate (Proventil) (2.5 MG/3ML) 0.083% inhalation solution 2.5 mgIndications:Chronic hypoxemic respiratory failure (HCC) 2.5 mg NEBULIZER Q4H PRN 10/08/2021 Active documented as of this encounter (statuses as of 04/23/2022) Active Problems Problem Noted Date Encounter for [...] 03/25/2016 Fibromyalgia 02/02/2016 Abnormality of gait 02/02/[address] 08/19/2014 History of pulmonary [...] as of this encounter (statuses as of 04/23/2022) Resolved Problems Problem Noted Date Resolved Date [...] as of this encounter (statuses as of 04/23/2022) Immunizations Name Administration Dates Next Due COVID-19 mRNA, LNP-s, No Pre serve, 2-Dose Series (Pfizer) 12/29/2020,12/18/2020 COVID-19, LNP-s, No Preserve , Navarro-sucrose, Ages 12+ (Pfizer) 10/01/2021 Pneumococcal Conjugate Vacci ne, 20-valent ([id number]) 03/12/2022 Pneumococcal Polysaccharide PPV23 (Pneumovax) 08/22/2009,06/15/2006 Seasonal [...] Miscellaneous Notes * Telephone Encounter - ELISSA Whitten - 03/22/2022 2:14 PM EDT LVM for pt to return call re: covid scheduling. * Telephone Encounter - ELISSA Whitten - 03/12/2022 3:25 PM EDT Pt declined to schedule covid vaccination today when she left appt with dr andujar saying she had too much going on right now. Pt stated that she would call us to schedule when she's able. documented in this encounter Plan of Treatment Upcoming Encounters Date Type Specialty Care Team Description 05/12/2022 Office Visit Family Medicine Galdino Andujar, DO 293 [facility] [place] [place] [address] 05/12/2022 Office Visit [facility], Pharmacist 65 [facility] [address] [facility] [place] [place] [address] 07/28/2022 Imaging Radiology 07/28/2022 PulmDiagnostic Pulmonary Function West, Pft [address] [facility] [place] [address] 08/05/2022 Nurse Only Ancillary College, Nurse Annual Wellness Visit 65 [facility] [address] [facility] [place] [place] [address] 08/25/2022 Office Visit Pulmonary Nikita Sanchez MD [address] [place] [id number] Scheduled Procedures Name Priority Associated Diagnoses Date/Ti [...] 07/09/2022 01/07/2022, 12/26/2021, 12/07/2021, Additional history exists CKD HGB USE SMARTSET 97597 01/07/202301/07, 01/07/2022, 12/26/2021, Additional history exists CKD PHOS USE SMARTSET 66881 01/07/202312/25, 03/12/2021, 11/17/2020, Additional history exists DIABETES-FOOT [...] on File Type Date Recorded Patient Teacher Education Instructor Expl anation Advanced Directive Advanced Directive [...] Camp Other Health Care Hayden r of Grinder Hardboard Princess Allen Other Health Care Pow er of Grinder Hardboard Care Teams Registered Art Therapist Relationship Specialty Start Date End Date Galdino Andujar, DO [address] [facility] [place] [place] [address] PCP - General Internal Medicine 01/07/22 documented as of this encounter
--- OUTSIDE RECORDS SUMMARY | 2023-06-01 04:36 | External Medical Summary | Summary of Care ---
Author Name Unknown Organization [place] [address] Care Team Providers Care Cementer Helper Name Role Phone Lexii Andujar DO Primary Care Provider [phone] Reason for Visit * Reason Comments eRx-Medication Refill Encounter Details Date Type Department Care Team Description 04/14/2022 Refill Family Practice [address] [facility] [place] [address] [place] [phone] Lexii Andujar DO [address] [place] [address] Restless legs syndrome Allergies Active Allergy Reactions Severity Noted Date Comments Codeine 07/08/2014 hallucination Pollen 05/18/2019 Heparin 09/04/2009 Heparin Induced Thrombocytopenia Hydrocodone Neuro complications (Please comment) 07/28/2020 Empagliflozin Other (Please comment) Medium 05/17/2018 3 yeast infections in 6 weeks after starting Morphine And Related 09/16/1997 Hallucinations Tetanus Toxoid Other (Please comment) 06/15/2011 Passed out documented as of this encounter (statuses as of 04/15/2022) Medications Medication Sig Dispensed Refills Start Date [...] 0 0 Active Blood Glucose Monitoring Suppl (Footmarks ULTRA 2) w/Device KIT Use to test [...] 7.0%-8.0% ([facility]) Inject 40 units with meals + sliding scale 1 units for every 25 units BG > 150. 121 mL 3 2 Active Tresiba FlexTouch 100 UNIT/ML Subcutaneous Solution Pen-injector (Insulin Degludec)Indication s:Type 2 diabetes mellitus with hemoglobin A1c goal of 7.0%-8.0% ([facility]) Inject under the skin 60 Units [...] % Nasal Solution Administer into nostril 1 [place] in the morning AND 1 [place] before bedtime. 30 mL 12 2 Active clonazePAM 0.5 MG Oral Tablet (KlonoPIN)Indicatio ns:Anxiety state Take by mouth 1 Tablet in the morning AND 1 Tablet before bedtime. 60 Tablet 0 2 Active traMADol HCl 50 MG Oral Tablet (Ultram)Indications :Chronic pain syndrome Take by mouth 1 Tablet every 8 hours as needed for Pain, Severe. 90 Tablet 0 2 Active Nortriptyline HCl 50 MG Oral Capsule (Pamelor)Indication s:Fibromyalgia TAKE ONE CAPSULE BY MOUTH AT BEDTIME 100 Capsule 3 2 Active Dexcom G6 Strain Technician Device Use as directed . 0 Active Dexcom G6 Sensor Use as directed . 0 Active Dexcom G6 Transmitter Use as directed . 0 Active rOPINIRole HCl 2 MG Oral Tablet (Requip)Indications :Restless legs syndrome TAKE ONE TABLET BY MOUTH AT BEDTIME 100 Tablet 3 2 Active rOPINIRole HCl 2 MG Oral Tablet (Requip)Indications :Restless legs syndrome Take by mouth 1 Tablet before bedtime. 100 Tablet 1 2 04/15/20 22 Discontinued Hospital, Clinic, or Other Facility Administered Medication Ordered Dose Route Frequency Start Date End Date Status Albuterol Sulfate (Proventil) (2.5 MG/3ML) 0.083% inhalation solution 2.5 mgIndications:Chronic hypoxemic respiratory failure (HCC) 2.5 mg NEBULIZER Q4H PRN 10/08/2021 Active documented as of this encounter (statuses as of 04/15/2022) Active Problems Problem Noted Date Encounter for [...] as of this encounter (statuses as of 04/15/2022) Resolved Problems Problem Noted Date Resolved Date [...] Taxonomy. DM type 2, not at goal 05/29/200215/ 9 Overview: Modified per Diabetes protocol #14. TENOSYNOVITIS FOOT-ANKLE 12/26/2001 017 Goiter 01/13/2000 06/28/2011 BACKACHE NOS 08/26/1999 05/24/2017 OBESITY, UNSPECIFIED 08/26/1999 12/23/2009 Overview: Per Obesity Taxonomy Perforation of intestine 017 Overview: COLON Diverticulitis documented as of this encounter (statuses as of 04/15/2022) Immunizations Name Administration Dates Next Due COVID-19 mRNA, LNP-s, No Pre serve, 2-Dose Series (BuyerCurious) 12/29/2020,12/18/2020 COVID-19, LNP-s, No Preserve , Navarro-sucrose, Ages 12+ (Pfizer) 2022 Pneumococcal Conjugate Vacci ne, 20-valent ([id number]) 03/12/2022 Pneumococcal Polysaccharide PPV23 (Pneumovax) 08/22/2009,06/15/2006 Seasonal [...] Telephone Encounter - Lexii Andujar DO - 04/15/2022 12:58 PM EDT Signed Prescriptions: Disp Refills rOPINIRole HCl 2 MG Oral Tablet (Requip) 100 Ta*3 Sig: TAKE ONE TABLET BY MOUTH AT BEDTIMEAuthorizing Provider: LEXII ANDUJAR * Telephone Encounter - Nathaly Mitchell [facility] - 04/15/2022 10:55 AM EDT Pending Prescriptions: Disp Refills rOPINIRole HCl 2 MG Oral Tablet (Requip) 100 Ta*3 Sig: TAKE ONE TABLET BY MOUTH AT BEDTIME * Telephone Encounter - Nathaly Mitchell [facility] - 04/15/2022 10:55 AM EDT Refill pharmacists currently not authorized to approve refills for this class of medication per refill protocol. Please approve if appropriate. Pending Prescriptions: Disp Refills rOPINIRole HCl 2 MG Oral Tablet (Requip) 100 Ta*3 Sig: TAKE ONE TABLET BY MOUTH AT BEDTIME 2022 (in office), 03/15/2022 (telemedicine) 05/12/2022 If no future appointments scheduled, and last appointment is greater than a year ago, please schedule patient for a follow-up appointment Last date the medication was ordered: 11/05/21 Pharmacy: [facility] [address] Is this request for a controlled substance? no Urine Drug Screen:No results found. However, due to the size of the patient record, not all encounters were searched. Please check Results Review for a complete set of results. Patient Phone Numbers Labs: Lab Results Component Value Date/Time CREAT 1.4 (H) 01/07/2022 11:56 AM CREAT 1.54 (A) 12/26/2021 12:00 AM CREAT 2.0 (H) 05/06/2020 08:46 AM POTASSIUM 4.6 01/07/2022 11:56 AM POTASSIUM 3.6 12/26/2021 12:00 AM POTASSIUM 4.0 05/06/2020 08:46 AM TSH 0.95 01/07/2022 11:56 AM TSH 5.35 (H) 05/06/2020 08:46 AM LDLCALC UNINTERPRETABLE RESULT 03/14/2019 01:54 PM LDLDIRECT 126 03/14/2019 01:54 PM LDLDIRECT 109 07/14/2017 12:35 PM ALT 27 05/06/2020 08:46 AM HGBA1C 7.8 (H) 01/07/2022 11:56 AM HGBA1C 7.3 (H) 01/23/2020 11:11 AM documented in this encounter Plan of Treatment Upcoming Encounters Date Type Specialty Care Team Description 05/12/2022 Office Visit [facility] Medicine Lexii Andujar, DO 293 [facility] [place] [address] 05/12/2022 Office Visit [facility], Pharmacist 65 [facility] [address] [facility], [place] [address] 07/28/2022 Imaging Radiology 07/28/2022 PulmDiagnostic Pulmonary Function [place], [address] [place] [address] 08/05/2022 Nurse Only Ancillary College, Nurse Annual Wellness Visit 65 [facility] 293 [facility], [place] [address] 08/25/2022 Office Visit Pulmonary Nikita Sanchez MD [address] [place] [id number] Scheduled Procedures Name Priority Associated Diagnoses Date/Ti [...] 2022, 12/29/2020, 12/18/2020 CKD HGB USE SMARTSET 89645 01/07/202301/07, 01/07/2022, 12/26/2021, Additional history exists CKD PHOS USE SMARTSET 16454 01/07/202312/25, 03/12/2021, 11/17/2020, Additional history exists DIABETES-FOOT [...] Restless legs syndrome Restless legs syndrome (RLS) documented in this encounter Advance Directives Documents on File Type Date Recorded Patient Oilseed Meat Presser Expl anation Advanced Directive Advanced Directive Advanced [...] Camp Other Health Care Hayden r of Learning Center Coordinator Princess Allen Other Health Care Pow er of Learning Center Coordinator Care Teams Cementer Helper Relationship Specialty Start Date End Date Lexii Andujar, DO [address] [place] [address] PCP - General Internal Medicine 01/07/22 documented as of this encounter
--- OUTSIDE RECORDS SUMMARY | 2023-06-01 04:36 | External Medical Summary | Summary of Care ---
Author Name Unknown Organization [place] [address] Care Team Providers Care Plaster Machine Tender Name Role Phone Galdino Andujar DO Primary Care Provider Reason for Visit * Reason Onset Date Comments case management 04/09/2022 MERGED WITH [facility] SMENT Encounter Details Date Type Department Care Team Description 04/09/2022 Truck Hopper Telephone Care Coordination [address], [place] [id number] Lisandra Torres RN [address] [place] [address] case management ([facility]GED WITH [facility]NUAL [facility]ESS[facility]) Allergies Active Allergy Reactions Severity Noted Date Comments Codeine 07/08/2014 hallucination Pollen 05/18/2019 Heparin 09/04/2009 Heparin Induced Thrombocytopenia Hydrocodone Neuro complications (Please comment) 07/28/2020 Empagliflozin Other (Please comment) Medium 05/17/2018 3 yeast infections in 6 weeks after starting Morphine And Related 09/16/1997 Hallucinations Tetanus Toxoid Other (Please comment) 06/15/2011 Passed out documented as of this encounter (statuses as of 04/09/2022) Medications Medication Sig Dispensed Refills Start Date [...] 0 04/08/2020 Active Blood Glucose Monitoring Suppl (Publicfast ULTRA 2) w/Device KIT Use to test [...] % Nasal Solution Administer into nostril 1 [place] in the morning AND 1 [place] before bedtime. 30 mL 12 02/18/2022 Active clonazePAM 0.5 MG Oral Tablet (KlonoPIN)Indicatio [...] AT BEDTIME 100 Capsule 3 04/01/2022 Active clobetasol propionate (TEMOVATE) 0.05 % creamIndications:Kalee rosas planus Apply to rash on the hands and dorsal feet twice daily x 1 week, then as needed for flares. 30 g 1 06/03/2020 04/09/20 22 Discontinu ed(Patient preference /discontin uation) Magnesium Oxide 400 (241.3 Mg) MG Oral TabletIndications:H ypomagnesemia Take 400 mg by mouth daily. 90 Tab 0 07/24/2020 04/09/20 Discontinu ed(Patient preference /discontin uation) Colchicine 0.6 MG Oral TabletIndications:L eukocytoclastic vasculitis (HCC) Take 1/2 tab daily 45 Tab 1 02/09/2021 04/09/20 22 Discontinu ed(Patient preference /discontin uation) Lidocaine 4 % External Patch (HM Lidocaine Patch) Place topically on the skin 1 Patch daily . 0 04/09/20 Discontinu ed(Patient preference /discontin uation) Fluticasone-[place] rol 115-21 MCG/ACT Inhalation Aerosol (Advair HFA) Inhale by mouth 2 Puffs in the morning AND 2 Puffs before bedtime. 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 Atherosclerosis of [place] coronary arter y without angina pectoris 12/31/2021 [...] as of this encounter (statuses as of 04/09/2022) Resolved Problems Problem Noted Date Resolved Date [...] as of this encounter (statuses as of 04/09/2022) Immunizations Name Administration Dates Next Due COVID-19 mRNA, LNP-s, No Pre serve, 2-Dose Series (Wannafun) 12/29/2020,12/18/2020 Pneumococcal Conjugate Vacci ne, 20-valent ([id number]) 03/12/2022 Pneumococcal Polysaccharide PPV23 (Pneumovax) 08/22/2009,06/15/2006 Seasonal [...] Miscellaneous Notes * Telephone Encounter - Lisandra Torres RN - 04/09/2022 11:31 AM EDT Case Management Assessment Is this call for a hospital, intermediate or rehab facility discharge to home? No S: Reports: Weight gain: does not do daily weights Increased edema: chronic BLE from ankles senior care up her leg Chest pain denies Increased shortness of breath: denies oxygen concentrator, 2L-activity/exercise and 2L-sleep conserving device (C-PAP / BiPAP) Chills / Sweats / Fever: denies chills/sweats and denies fever Fall: denies any falls since last Care Management encounter assistive device:cane and walker Appetite: denies nausea, vomiting, burning, decreased appetite Bowel: occasional constipation denies problems Bladder: denies problems and Hx of UTI's Chronic Pain: has fibromyalgia -- uses gabapentin and tylenol/motrin Does Patient have Type 2 DM ? Yes. Does this patient take sulfonylureas and/or basal insulin? No O: Phone visit for SNP Annual -- transferred from [facility]. Medications: Reviewed and updated Epic, takes all medications as prescribed. and denies side effects Does this patient qualify for an annual wellness visit? Yes, To be scheduled with 65F A: Patient Centered Prioritized Goals: 1. Patient will weigh daily on home scale. 2. Patient will be able to repeat HF self care guidelines / Diuretic Titration Protocol 3. Patient will have urinary issues addressed Identified Barriers: Patient/caregiver's lack of understanding of their condition and prescribed treatment plan and Poor/inadequate support FUNCTIONAL STATUS: (Definition - assess ability to patient to manage their own care, includes evaluation of activities of daily living, and instrumental activities of daily living, and cognitive abilities status) ADL'S - Needs Assistance With: N/A as pt is independent IADL'S - Needs Assistance With: Routine Housework Cognitive and Mental Health: denies problems, alert and oriented x 3 and able to communicate, understand instructions, process information. P: Truck Hopper Interventions: Explained/reinforced role of case aide. Encouraged to call with any issues or concerns. Gave direct phone number and contact information. Reviewed HF symptom monitoring: -Weigh self daily [...] fasting and <180mg/dl post-prandial. Target A1C is <8%. Educated on home safety: Create a fall [...] reflexes. o Certain medicines may cause falls blood pressure pills, heart medicines, water pills, or sleeping pills. o Be sure to understand each medicine that you are taking and any side effects that may occur. Improve your balance and flexibility with muscle strengthening exercises. Ask your health care provider for some exercises that will be right for you. Blank AD forms sent HF SMAP sent FINISHED CARPET INSPECTOR referral for housing/rent increase PCP Notified of enrollment in CM/HM program: Yes SNP Member? Yes Is Provider in agreement with POC? Yes Re-evaluation of plan of care and progress towards goals achievement: Plan to call patient in 3 months or as needed to reassess and update plan of care, instructed to call Truck Hopper or Primary Care Provider with change in symptoms or as needed before next follow-up,verbalizes understanding and agrees with plan. Lisandra Torres RN Outpatient Truck Hopper documented in this encounter Plan of Treatment Upcoming Encounters Date Type Specialty Care Team Description 2022 Immunization [facility], Covid19 Vaccine 65 [facility] [address] [place] [address] 2022 Office Visit [facility] Pharmacist [address] [facility] [address] [place] [address] 05/12/2022 Office Visit Family Medicine Galdino Andujar DO [address] [place] [address] 05/12/2022 Office Visit [facility], Pharmacist [address] [facility] [address] [place] [address] 07/28/2022 Imaging Radiology 07/28/2022 PulmDiagnostic Pulmonary Function [place], [address] [place] [address] 08/05/2022 Nurse Only [employer], Nurse Annual Wellness Visit 65 [facility] [address] [place] [address] 08/25/2022 Office Visit Pulmonary Nikita Sanchez MD [address] [place] [id number] Scheduled Procedures Name Priority Associated Diagnoses Date/Ti me COLONOSCOPY FLEXIBLE PROXIMAL DIAGNOSTIC Recall Colon cancer screening Health Maintenance Due Date Last Done Comments Cologuard: Ages 45-75 2000 FOBT: Ages 45-75 2000 Sigmoidoscopy: Ages 45-75 2000 COVID-19 Vaccine (3 - Booster) 05/31/2021 12/29/2020, 12/18/2020 DIABETES-EYE EXAM 04/14/2022 04/14/2021, , 04/05/2019, Additional history exists Influenza Vaccine (FLU shot) (#1) 2022 07/20/2021, 06/13/2020, 07/23/2019, Additional history exists DIABETES-HGBA1C EVERY 6 MONTHS 07/09/2022 01/07/2022, 11/17/2020, 01/23/2020, Additional history exists GFR - Renal Function 07/09/2022 01/07/2022, 12/26/2021, 12/07/2021, Additional history exists CKD HGB USE SMARTSET 38204 01/07/202301/07, 01/07/2022, 12/26/2021, Additional history exists CKD PHOS USE SMARTSET 88837 01/07/2023 0412/2021, 03/12/2021, 11/17/2020, Additional history exists [...] Documents on File Type Date Recorded Patient Reel Slitter Expl anation Advanced Directive Advanced Directive Advanced [...] Camp Other Health Care Hayden r of Phosphoric Acid Operator Princess Allen Other Health Care Pow er of Phosphoric Acid Operator Care Teams Plaster Machine Tender Relationship Specialty Start Date End Date Galdino Andujar, DO [address] [place] [address] PCP - General Internal Medicine 01/07/22 documented as of this encounter
--- OUTSIDE RECORDS SUMMARY | 2023-06-01 04:36 | External Medical Summary | Summary of Care ---
Author Name Unknown Organization [place] [address] Care Team Providers Care Development Intern Name Role Phone Galdino Andujar DO Primary Care Provider [phone] Reason for Visit * Reason Onset Date Comments Scheduling 02/03/2022 Encounter Details Date Type Department Care Team Description 02/03/2022 Telephone Family Practice 65 [facility] [place] [address] [place] [address] Galdino Andujar DO [address] [place], [place] [id number] Scheduling Allergies Active Allergy Reactions Severity Noted Date Comments Codeine 07/08/2014 hallucination Pollen 05/18/2019 Heparin 09/04/2009 Heparin Induced Thrombocytopenia Hydrocodone Neuro complications (Please comment) 07/28/2020 Empagliflozin Other (Please comment) Medium 05/17/2018 3 yeast infections in 6 weeks after starting Morphine And Related 09/16/1997 Hallucinations Tetanus Toxoid Other (Please comment) 06/15/2011 Passed out documented as of this encounter (statuses as of 04/22/2022) Medications Medication Sig Dispensed Refills Start Date [...] 0 04/08/2020 Active Blood Glucose Monitoring Suppl (Physcient ULTRA 2) w/Device KIT Use to test [...] worsening swelling. 135 Tablet 0 11/04/2021 Active [email or web address] Ultra Blue In Vitro Strip (Glucose Blood) [...] 7.0%-8.0% ([facility]) Inject under the skin [...] before bedtime. 200 Capsule 3 01/19/2022 Active Hospital, Clinic, or Other Facility Administered Medication Ordered Dose Route Frequency Start Date End Date Status Albuterol Sulfate (Proventil) (2.5 MG/3ML) 0.083% inhalation solution 2.5 mgIndications:Chronic hypoxemic respiratory failure (HCC) 2.5 mg NEBULIZER Q4H PRN 10/08/2021 Active documented as of this encounter (statuses as of 04/22/2022) Active Problems Problem Noted Date Encounter for [...] 03/25/2016 Fibromyalgia 02/02/2016 Abnormality of gait 02/02/[address] [place] 08/19/2014 History of pulmonary [...] as of this encounter (statuses as of 04/22/2022) Resolved Problems Problem Noted Date Resolved Date [...] as of this encounter (statuses as of 04/22/2022) Immunizations Name Administration Dates Next Due COVID-19 mRNA, LNP-s, No Pre serve, 2-Dose Series (GeoTrac) 12/29/2020,12/18/2020 COVID-19, LNP-s, No Preserve , Navarro-sucrose, Ages 12+ (Pfizer) 10/01/2021 Pneumococcal Polysaccharide PPV23 (Pneumovax) 08/22/2009,06/15/2006 Seasonal Influenza, [...] * Telephone Encounter - ELISSA Whitten - 02/03/2022 12:58 PM EDT Pt called to find out when her next appt is with you. You can text her to let her know. documented in this encounter Plan of Treatment Upcoming Encounters Date Type Specialty Care Team Description 05/12/2022 Office Visit Family Medicine Galdino Andujar, [address] [place] [address] 05/12/2022 Office Visit [facility] Medicine [place], Pharmacist [address] [place] [address] 07/28/2022 Imaging Radiology 07/28/2022 PulmDiagnostic Pulmonary Function West, [address] [place] [address] 08/05/2022 Nurse Only Ancillary [place], Nurse Annual Wellness Visit 65 [facility] [address] [place] [address] 08/25/2022 Office Visit Pulmonary Nikita Sanchez MD [address] [place] [id number] Scheduled Procedures Name Priority Associated Diagnoses Date/Ti [...] Additional history exists CKD HGB USE SMARTSET 53065 01/07/202301/07, 01/07/2022, 12/26/2021, Additional history exists CKD PHOS USE SMARTSET 30375 01/07/202312/25, 03/12/2021, 11/17/2020, Additional history exists DIABETES-FOOT [...] on File Type Date Recorded Patient Medical Office Receptionist Assistant Expl anation Advanced Directive Advanced Directive Advanced [...] Camp Other Health Care Hayden r of Photoengraving Machine Operator/Tender Princess Allen Other Health Care Pow er of Photoengraving Machine Operator/Tender Care Teams Development Intern Relationship Specialty Start Date End Date Galdino Andujar, DO [address] [place] [address] PCP - General Internal Medicine 01/07/22 documented as of this encounter
--- OUTSIDE RECORDS SUMMARY | 2023-06-01 04:36 | External Medical Summary | Summary of Care ---
Author Name Unknown Organization [place] [address] Care Team Providers Care Bee Rancher Name Role Phone Galdino Andujar DO Primary Care Provider [phone] Encounter Details Date Type Department Care Team Description 04/12/2022 Telephone Care Coordination [address] [place] [address] Shira Ahmadi OSA Allergies Active Allergy Reactions Severity Noted Date Comments Codeine 07/08/2014 hallucination Pollen 05/18/2019 Heparin 09/04/2009 Heparin Induced Thrombocytopenia Hydrocodone Neuro complications (Please comment) 07/28/2020 Empagliflozin Other (Please comment) Medium 05/17/2018 3 yeast infections in 6 weeks after starting Morphine And Related 09/16/1997 Hallucinations Tetanus Toxoid Other (Please comment) 06/15/2011 Passed out documented as of this encounter (statuses as of 04/12/2022) Medications Medication Sig Dispensed Refills Start Date [...] 90 Cap 3 12/18/2019 Active DIURETIC TITRATION PLANIndications:Vehicle Maintenance Technician zahra diastolic congestive heart failure (HCC) [...] % Nasal Solution Administer into nostril 1 [place] in the morning AND 1 [place] before bedtime. 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 Atherosclerosis of [place] coronary arter y without angina pectoris 12/31/2021 [...] 03/25/2016 Fibromyalgia 02/02/2016 Abnormality of gait 02/02/[address] 08/19/2014 History of pulmonary [...] as of this encounter (statuses as of 04/12/2022) Resolved Problems Problem Noted Date Resolved Date [...] as of this encounter (statuses as of 04/12/2022) Immunizations Name Administration Dates Next Due COVID-19 mRNA, LNP-s, No Pre serve, 2-Dose Series (Pfizer) 12/29/2020,12/18/2020 Pneumococcal Conjugate Vacci ne, 20-valent ([id number]) 03/12/2022 Pneumococcal Polysaccharide PPV23 (Pneumovax) 08/22/2009,06/15/2006 Seasonal [...] Miscellaneous Notes * Telephone Encounter - Shira Ahmadi ELISAS - 04/12/2022 11:39 AM EDT transfer from [facility] 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 Let me know. thanks! [facility] NOTE: Called and spoke with pt to discuss referral needs. Pt states her rent increased by $110.She is already on the wait list for HUD and [address]. [facility] advised pt to update her new rent amountwith the [facility] assistance office via isael, computer or phone. Pt has the phone number. [facility] providedpt with the phone number for basic needs [phone] to see if they can help her at all. No further AUTOMOTIVE WARRANTY ADMINISTRATOR NEEDS. documented in this encounter Plan of Treatment Upcoming Encounters Date Type Specialty Care Team Description 2022 Immunization Ancillary [place], Covid19 Vaccine [address] [place] [address] 2022 Office Visit [facility], Pharmacist [address] [place] [address] 05/12/2022 Office Visit [facility] Medicine Galdino Andujar, DO [address] [place] [address] 05/12/2022 Office Visit [facility], Pharmacist [address] [place] [address] 07/28/2022 Imaging Radiology 07/28/2022 PulmDiagnostic Pulmonary Function West, [address] [place] [address] 08/05/2022 Nurse Only [facility], Nurse Annual Wellness Visit [address] [place] [address] 08/25/2022 Office Visit Pulmonary Nikita Sanchez MD [address] [id number] Scheduled Procedures Name Priority Associated Diagnoses Date/Ti [...] Additional history exists CKD HGB USE SMARTSET 79650 01/07/202301/07, 01/07/2022, 12/26/2021, Additional history exists CKD PHOS USE SMARTSET 86694 01/07/2023 0412/2021, 03/12/2021, 11/17/2020, Additional history exists [...] on File Type Date Recorded Patient Application Engineer Expl anation Advanced Directive Advanced Directive Advanced [...] Camp Other Health Care Hayden r of Destination Imagination Coordinator Princess Staplesfany Other Health Care Pow er of Destination Imagination Coordinator Care Teams Bee Rancher Relationship Specialty Start Date End Date Galdino Andujar, DO [address] [place] [address] PCP - General Internal Medicine 01/07/22 documented as of this encounter
--- OUTSIDE RECORDS SUMMARY | 2023-06-01 04:36 | External Medical Summary | Summary of Care ---
Author Name Unknown Organization [place] [address] Care Team Providers Care Collision Worker Name Role Phone Galdino Andujar DO Primary Care Provider [phone] Reason for Visit * Reason Onset Date Comments Appointment 01/07/2022 Encounter Details Date Type Department Care Team Description 01/07/2022 Telephone Family Practice 65 [facility] [place] [address] [place] [address] Galdino Andujar DO [address] [place], [place] [id number] Appointment Allergies Active Allergy Reactions Severity Noted [...] 90 Cap 3 12/18/2019 Active DIURETIC TITRATION PLANIndications:Broadcast Operations Manager 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 1 Each 0 04/08/2020 Active Blood Glucose Monitoring Suppl ([employer] ULTRA 2) w/Device KIT Use to [...] worsening swelling. 135 Tablet 0 11/04/2021 Active DanceJamTouch Ultra Blue In Vitro Strip (Glucose Blood) [...] the morning. 45 mL 3 11/04/2021 Active Hospital, Clinic, or Other Facility Administered [...] mRNA, LNP-s, No Pre serve, 2-Dose Series ([employer]) 12/29/2020,12/18/2020 COVID-19, LNP-s, No Preserve , Navarro-sucrose, [...] * Telephone Encounter - ELISSA Whitten - 01/07/2022 12:11 PM EDT Please call pt to schedule fitness assessment. documented in this encounter Plan of Treatment Upcoming Encounters Date Type Specialty Care Team Description 05/12/2022 Office Visit [facility] Medicine Galdino Andujar, DO [address] [place] [address] 05/12/2022 Office Visit [facility], Pharmacist [address] [place] [address] 07/28/2022 Imaging Radiology 07/28/2022 PulmDiagnostic Pulmonary Function West, [address] [facility] [place] [address] 08/05/2022 Nurse Only [employer]illary [employer], Nurse Annual Wellness Visit 65 [facility] [address] [place] [address] 08/25/2022 Office Visit Pulmonary Nikita Sanchez MD [address] [id number] Scheduled Procedures Name Priority Associated Diagnoses Date/Ti [...] Additional history exists CKD HGB USE SMARTSET 10345 01/07/202301/07, 01/07/2022, 12/26/2021, Additional history exists CKD PHOS USE SMARTSET 26355 01/07/202312/25, 03/12/2021, 11/17/2020, Additional history exists DIABETES-FOOT [...] Documents on File Type Date Recorded Patient Signals Analyst Expl anation Advanced Directive Advanced Directive Advanced [...] Camp Other Health Care Hayden r of Digital Program Manager Princess Allen Other Health Care Pow er of Digital Program Manager Care Teams Collision Worker Relationship Specialty Start Date End Date Galdino Andujar, DO [address] [place] [address] PCP - General Internal Medicine 01/07/22 documented as of this encounter
--- OUTSIDE RECORDS SUMMARY | 2023-06-01 04:36 | External Medical Summary | Summary of Care ---
Author Name Unknown Organization [place] [address] Care Team Providers Care Sorter Upholstery Parts Name Role Phone Galdino Andujar DO Primary Care Provider Reason for Visit * Reason Comments Diabetes Encounter Details Date Type Department Care Team Description 2022 Office Visit Family Practice 65 [facility] [address] [place] [address] College, Pharmacist [address] [address] Type 2 diabetes mellitus with hemoglobin A1c goal of less than 8.0% ([facility])*; Type 2 diabetes mellitus with stage 3b chronic kidney disease, with long-term current use of insulin ([facility]) Allergies Active Allergy Reactions Severity [...] 90 Cap 3 12/18/2019 Active DIURETIC TITRATION PLANIndications:Claims Auditor 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 1 Each 0 04/08/2020 Active Blood Glucose Monitoring Suppl (Venuemob ULTRA 2) w/Device KIT Use to test [...] % Nasal Solution Administer into nostril 1 [place] in the morning AND 1 [place] before bedtime. 30 mL 12 02/18/2022 Active [...] 100 Capsule 3 04/01/2022 Active Dexcom G6 Treatment Manager Device Use as directed . 0 Active Dexcom G6 Sensor Use as directed . 0 A ctive Dexcom G6 Transmitter Use as directed . 0 Active Hospital, Clinic, or Other [...] mRNA, LNP-s, No Pre serve, 2-Dose Series (Nativoo) 12/29/2020,12/18/2020 COVID-19, LNP-s, No Preserve , Navarro-sucrose, Ages 12+ (Pfizer) 2022 Pneumococcal Conjugate Vacci ne, 20-valent ([id number]) 03/12/2022 Pneumococcal Polysaccharide PPV23 (Pneumovax) 08/22/2009,06/15/2006 Seasonal [...] of this encounter Progress Notes * Jane Wood RPh - 2022 10:10 AM EDT Dexcom G6: Patient Education and Review Patient provided G6 CGM components and training manual. Reviewed the following information with patient using provided manager field service literature: Introduced CGM and components How to set up display device (cell phone with Dexcom G6 isael or project specialist) Follow the onscreen instructions on project specialist or appt to enter: o Low and [...] Remove transmitter from martin - Keep transmitter - Patient set up personal device and self-inserted sensor and transmitter in office independently of pharmacist involvement other than for material review and support. Follow up: 05/12/2022 Jane Wood, PharmD Clinical Pharmacist Medication Therapy Disease Management 2022, 10:45 AM documented in this encounter Plan of Treatment Upcoming Encounters Date Type Specialty Care Team Description 05/12/2022 Office Visit Family Medicine Galdino Andujar, DO 293 [facility], [place] [address] 05/12/2022 Office Visit Family Medicine College, Pharmacist 65 [facility] 293 [facility], [place] [address] 07/28/2022 Imaging Radiology 07/28/2022 PulmDiagnostic Pulmonary Function [place], Pft [address] [place] [address] 08/05/2022 Nurse Only Ancillary College, Nurse Annual Wellness Visit 65 [facility] 293 [facility], [place] [address] 08/25/2022 Office Visit Pulmonary Nikita Sanchez MD [address] [place] [id number] Scheduled Procedures Name Priority Associated Diagnoses Date/Ti [...] 2022, 12/29/2020, 12/18/2020 CKD HGB USE SMARTSET 49321 01/07/202301/07, 01/07/2022, 12/26/2021, Additional history exists CKD PHOS USE SMARTSET 71226 01/07/202312/25, 03/12/2021, 11/17/2020, Additional history exists DIABETES-FOOT [...] goal of less than 8.0% (HCC)- Primary Type 2 diabetes mellitus with stage 3b chronic kidney disease, with long-term current use of insulin (HCC) documented in this encounter Advance Directives Documents on File Type Date Recorded Patient Belt Molder Expl anation Advanced Directive Advanced Directive Advanced [...] Camp Other Health Care Hayden r of [employer] Princess Allen Other Health Care Pow er of Dean Of [employer] Care Teams Sorter Upholstery Parts Relationship Specialty Start Date End Date Galdino Andujar, DO 293 [place] [address] PCP - General Internal Medicine 01/07/22 documented as of this encounter
--- OUTSIDE RECORDS SUMMARY | 2023-06-01 04:37 | External Medical Summary | Summary of Care ---
Author Name Unknown Organization [place] [address] Care Team Providers Care Flanging Operator Name Role Phone Galdino Andujar DO Primary Care Provider Reason for Visit * Reason Onset Date Comments Advice 04/05/2022 Encounter Details Date Type Department Care Team Description 04/05/2022 Telephone Family Practice 65 [facility] [place] [address] [place] [address] Galdino Andujar DO [address] [place], [place] [id number] Advice Allergies Active Allergy Reactions Severity Noted Date Comments Codeine 07/08/2014 hallucination Pollen 05/18/2019 Heparin 09/04/2009 Heparin Induced Thrombocytopenia Hydrocodone Neuro complications (Please comment) 07/28/2020 Empagliflozin Other (Please comment) Medium 05/17/2018 3 yeast infections in 6 weeks after starting Morphine And Related 09/16/1997 Hallucinations Tetanus Toxoid Other (Please comment) 06/15/2011 Passed out documented as of this encounter (statuses as of 04/05/2022) Medications Medication Sig Dispensed Refills Start Date [...] 90 Cap 3 12/18/2019 Active DIURETIC TITRATION PLANIndications:Biomedical Engineering Director 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 1 Each 0 04/08/2020 Active Blood Glucose Monitoring Suppl ([place] Grain ULTRA 2) w/Device KIT Use to test BG values 1 Kit 0 05/20/2020 Active clobetasol propionate (TEMOVATE) 0.05 % creamIndications:Lic hen planus Apply to rash on the hands and dorsal feet twice daily x 1 week, then as needed for flares. 30 g 1 06/03/2020 Active Magnesium Oxide 400 (241.3 Mg) MG Oral TabletIndications:Hy pomagnesemia Take 400 mg by mouth daily. 90 Tab 0 07/24/2020 Active Acetaminophen 500 MG Oral Tablet (Acetaminophen Extra Strength) Take 500 mg by mouth every 6 hours as needed. 0 Active Meclizine HCl 12.5 MG Oral Tablet (Antivert)Indication s:Vertigo Take 1 Tab by mouth 3 times a day as needed for Dizziness. 30 Tab 1 12/29/2020 Active Colchicine 0.6 MG Oral TabletIndications:Le ukocytoclastic vasculitis (HCC) Take 1/2 tab daily 45 Tab 1 02/09/2021 Active Additional Information Patient not taking. Reported on 02/03/2022 Nerve Pain Relief Sublingual Tablet SublingualIndication s:pt [...] 1,000 Units by mouth daily. 0 Active Lidocaine 4 % External Patch (HM Lidocaine Patch) Place topically on the skin 1 Patch daily . 0 Active BD Pen Needle Short U/F [...] goal of 7.0%-8.0% ([facility]) Inject under the skin 60 [...] or Wheezing. 18 g 3 02/18/2022 Active Fluticasone-Salmeter ol 115-21 MCG/ACT Inhalation Aerosol (Advair HFA) Inhale by mouth 2 Puffs in the morning AND 2 Puffs before bedtime. 12 g 12 02/18/2022 Active Azelastine HCl 0.1 % Nasal Solution Administer into nostril 1 [place] in the morning AND 1 [place] before bedtime. 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 Atherosclerosis of [place] coronary arter y without angina pectoris 12/31/2021 [...] as of this encounter (statuses as of 04/05/2022) Resolved Problems Problem Noted Date Resolved Date [...] as of this encounter (statuses as of 04/05/2022) Immunizations Name Administration Dates Next Due COVID-19 mRNA, LNP-s, No Pre serve, 2-Dose Series (Programmr) 12/29/2020,12/18/2020 Pneumococcal Conjugate Vacci ne, 20-valent ([id number]) 03/12/2022 Pneumococcal Polysaccharide PPV23 (Pneumovax) 08/22/2009,06/15/2006 Seasonal [...] encounter Miscellaneous Notes * Telephone Encounter - Mariam Page RPh - 04/05/2022 11:06 AM EDT Patient Phone Numbers Called patient. Pharmacist ordered a Dexcom for her and she just received it and was told to call when it came to be educated on how to use and set up. MTM pharmacist is currently out of the office and advised that I would find out what is going on and someone will be calling her to schedule something shortly. Mariam Page RP, PharmD, BCACP, BCGP Clinical Pharmacist 65 [facility] 04/05/2022 11:13 AM * Telephone Encounter - ELISSA Whitten - 04/05/2022 10:22 AM EDT Pt called. Needs to speak with pharmacist her dexcom documented in this encounter Plan of Treatment Upcoming Encounters Date Type Specialty Care Team Description 2022 Immunization Ancillary College, Covid19 Vaccine [address] [place] [address] 05/12/2022 Office Visit Family Medicine Galdino Andujar, 293 [facility] [place] [address] 05/12/2022 Office Visit [facility], Pharmacist [address] [place] [address] 07/28/2022 Imaging Radiology 07/28/2022 PulmDiagnostic Pulmonary Function West, Pft 132 [facility] [place] [address] 08/05/2022 Nurse Only Ancillary College, Nurse Annual Wellness Visit [address] [place] [address] 08/25/2022 Office Visit Pulmonary Nikita Sanchez MD [address] [place] [id number] Scheduled Procedures Name Priority Associated Diagnoses Date/Ti [...] Additional history exists CKD HGB USE SMARTSET 24673 01/07/202301/07, 01/07/2022, 12/26/2021, Additional history exists CKD PHOS USE SMARTSET 00794 01/07/202312/25, 03/12/2021, 11/17/2020, Additional history exists DIABETES-FOOT [...] Documents on File Type Date Recorded Patient Refrigerated Cargo Clerk Expl anation Advanced Directive Advanced Directive [...] Camp Other Health Care Hayden r of Enamel Drier Princessambar Allen Other Health Care Pow er of Enamel Drier Care Teams Flanging Operator Relationship Specialty Start Date End Date Galdino Andujar, DO 293 [place] [address] PCP - General Internal Medicine 01/07/22 documented as of this encounter
--- OUTSIDE RECORDS SUMMARY | 2023-06-01 04:37 | External Medical Summary | Summary of Care ---
Author Name Unknown Organization [place] [address] Care Team Providers Care Office Machine Service Supervisor Name Role Phone Galdino Andujar DO Primary Care Provider [phone] Reason for Visit * Reason Comments Dosage Adjustment Via Phone (anticoag Cl inic) Encounter Details Date Type Department Care Team Description 03/15/2022 Telemedicine Family Practice 65 [facility] [address] [place] [address] [place], Pharmacist [address] [address] Type 2 diabetes mellitus with hemoglobin A1c goal of 7.0%-8.0% ([facility])* Allergies Active Allergy Reactions Severity Noted Date Comments Codeine 07/08/2014 hallucination Pollen 05/18/2019 Heparin 09/04/2009 Heparin Induced Thrombocytopenia Hydrocodone Neuro complications (Please comment) 07/28/2020 Empagliflozin Other (Please comment) Medium 05/17/2018 3 yeast infections in 6 weeks after starting Morphine And Related 09/16/1997 Hallucinations Tetanus Toxoid Other (Please comment) 06/15/2011 Passed out documented as of this encounter (statuses as of 03/23/2022) Medications Medication Sig Dispensed Refills Start Date [...] 90 Cap 3 12/18/2019 Active DIURETIC TITRATION PLANIndications:Special Effects Specialist 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 1 Each 0 04/08/2020 Active Blood Glucose Monitoring Suppl (BestBoy Keyboard ULTRA 2) w/Device KIT Use to test [...] before bedtime. 90 Tablet 0 11/04/2021 Active Nortriptyline HCl 50 MG Oral Capsule (Pamelor)Indications :Fibromyalgia Take by mouth 1 Capsule before bedtime. 100 Capsule 1 11/04/2021 Active rOPINIRole HCl 2 MG Oral [...] % Nasal Solution Administer into nostril 1 [place] in the morning AND 1 [place] before bedtime. 30 mL 12 02/18/2022 Active clonazePAM 0.5 MG Oral Tablet (KlonoPIN)Indication s:Anxiety state Take by mouth 1 Tablet in the morning AND 1 Tablet before bedtime. 60 Tablet 0 03/12/2022 Active traMADol HCl 50 MG Oral Tablet (Ultram)Indications: Chronic pain syndrome Take by mouth 1 Tablet every 8 hours as needed for Pain, Severe. 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 Atherosclerosis of [place] coronary arter y without angina pectoris 12/31/2021 [...] as of this encounter (statuses as of 03/23/2022) Resolved Problems Problem Noted Date Resolved Date [...] as of this encounter (statuses as of 03/23/2022) Immunizations Name Administration Dates Next Due COVID-19 mRNA, LNP-s, No Pre serve, 2-Dose Series (OneID) 12/29/2020,12/18/2020 Pneumococcal Conjugate Vacci ne, 20-valent ([id number]) 03/12/2022 Pneumococcal Polysaccharide PPV23 (Pneumovax) 08/22/2009,06/15/2006 Seasonal [...] Progress Notes * Frances Duong RPh - 03/23/2022 7:57 AM EDT No BG log from appt on 03/12. Will follow up with patient next week. Frances Duong, Pharm D, BCACP Clinical Pharmacist Medication Therapy [facility] 03/23/2022, 7:57 AM Ph. [phone] documented in this encounter Plan of Treatment Upcoming Encounters Date Type Specialty Care Team Description 04/05/2022 Office Visit Cardiology Marjorie Powell PA-C [address] [place] [address] [place] [address] 04/14/2022 Nurse Only Ancillary College, Nurse Annual Wellness Visit 65 [facility] 293 [facility], [place] [address] 05/12/2022 Office Visit Family Medicine Galdino Andujar, DO 293 [facility], [place] [address] 07/28/2022 Imaging Radiology 07/28/2022 PulmDiagnostic Pulmonary Function West, Pft [address] [place] [address] 08/25/2022 Office Visit Pulmonary Nikita Sanchez MD [address] [place] [address] Scheduled Procedures Name Priority Associated Diagnoses Date/Ti me COLONOSCOPY FLEXIBLE PROXIMAL DIAGNOSTIC Recall Colon cancer screening Health Maintenance Due Date Last Done Comments Cologuard: Ages 45-75 2000 FOBT: Ages 45-75 2000 Sigmoidoscopy: Ages 45-75 2000 COVID-19 Vaccine (3 - Booster) 05/31/2021 12/29/2020, 12/18/2020 DIABETES-EYE EXAM 04/14/2022 04/14/2021, , 04/05/2019, Additional history exists CKD GFR USE SMARTSET 89975 07/09/202201/07, 12/26/2021, 12/07/2021, Additional history exists DIABETES-HGBA1C EVERY 6 MONTHS 07/09/2022 01/07/2022, 11/17/2020, 01/23/2020, Additional history exists BASIC METABOLIC PANEL (BMP) FOR HTN YEARLY 01/07/2023 01/07/2022, 12/26/2021, 12/07/2021, Additional history exists CKD HGB USE SMARTSET 17770 01/07/202301/07, 01/07/2022, 12/26/2021, Additional history exists CKD PHOS USE SMARTSET 87313 01/07/202312/25, 03/12/2021, 11/17/2020, Additional history exists DIABETES-FOOT [...] 02/17/2026 Zoster Vaccines Completed 05/08/2020, 10/27, 12/11/2015 Influenza Vaccine (FLU shot) Completed , 06/13/2020, 07/23/2019, Additional history exists Pneumococcal Vaccine: 65+ Years Completed 03/12/2022, 08/22/2009, [...] hemoglobin A1c goal of 7.0%-8.0% ([facility])- Primary documented in this encounter Advance Directives Documents on File Type Date Recorded Patient Drying Frame Operator Expl anation Advanced Directive Advanced Directive [...] Camp Other Health Care Hayden r of [employer] Maintenance Worker Princess Allen Other Health Care Pow er of [employer] Maintenance Worker Care Teams Office Machine Service Supervisor Relationship Specialty Start Date End Date Galdino Andujar, DO [address] [place] [address] PCP - General Internal Medicine 01/07/22 documented as of this encounter
--- OUTSIDE RECORDS SUMMARY | 2023-06-01 04:37 | External Medical Summary | Summary of Care ---
Author Name Unknown Organization [place] [address] Care Team Providers Care Dental Assistant Medical Assistant Name Role Phone Ziaandrews Galdino Neal DO Primary Care Provider [phone] Encounter Details Date Type Department Care Team Description 03/12/2022 Documentation HEALTH & WELLNESS Kierra Woods, Health Woodworking Machine Operator Allergies Active Allergy Reactions Severity Noted Date Comments Codeine 07/08/2014 hallucination Pollen 05/18/2019 Heparin 09/04/2009 Heparin Induced Thrombocytopenia Hydrocodone Neuro complications (Please comment) 07/28/2020 Empagliflozin Other (Please comment) Medium 05/17/2018 3 yeast infections in 6 weeks after starting Morphine And Related 09/16/1997 Hallucinations Tetanus Toxoid Other (Please comment) 06/15/2011 Passed out documented as of this encounter (statuses as of 03/12/2022) Medications Medication Sig Dispensed Refills Start Date [...] 90 Cap 3 12/18/2019 Active DIURETIC TITRATION PLANIndications:Exhaust And Muffler Fitter 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 1 Each 0 04/08/2020 Active Blood Glucose Monitoring Suppl ([place] [employer]or ULTRA 2) w/Device KIT Use to test [...] % Nasal Solution Administer into nostril 1 [place] in the morning AND 1 [place] before bedtime. 30 mL 12 02/18/2022 Active [...] as of this encounter (statuses as of 03/12/2022) Active Problems Problem Noted Date Encounter for [...] as of this encounter (statuses as of 03/12/2022) Resolved Problems Problem Noted Date Resolved Date [...] as of this encounter (statuses as of 03/12/2022) Immunizations Name Administration Dates Next Due COVID-19 mRNA, LNP-s, No Pre serve, 2-Dose Series (Pfizer) 12/29/2020,12/18/2020 Pneumococcal Conjugate Vacci ne, 20-valent ([id number]) 03/12/2022 Pneumococcal Polysaccharide PPV23 (Pneumovax) 08/22/2009,06/15/2006 Seasonal [...] as of this encounter Progress Notes * Kierra Woods Health Woodworking Machine Operator - 03/12/2022 4:04 PM EDT SESSION TYPE: One-on-one exercise session: Exercise Subtype or Modality: Multi Exercise Duration: 15-30 minutes Weight: Blood pressure: Patient completed a one-on-one exercise session which consisted of cardiovascular and resistance training. She completed 3 minutes of cardiovascular exercise on the uConnect strider. She had no complaints and did well with exercise today. She stated that she would call and schedule another session next week. documented in this encounter Plan of Treatment Upcoming Encounters Date Type Specialty Care Team Description 03/15/2022 Telemedicine [facility], Pharmacist [address] [place] [address] 04/05/2022 Office Visit Cardiology Marjorie Powell PA-C 132 [facility] [place] [address] 04/14/2022 Nurse Only Ancillary College, Nurse Annual Wellness Visit [address], [place] [address] 05/12/2022 Office Visit Family Medicine Galdino Andujar DO 293 [facility], [place] [address] 07/28/2022 Imaging Radiology 07/28/2022 PulmDiagnostic Pulmonary Function West, Pft [address] [place] [address] 08/25/2022 Office Visit Pulmonary Nikita Sanchez MD [address] [place] [id number] Scheduled Procedures Name Priority Associated Diagnoses Date/Ti me COLONOSCOPY FLEXIBLE PROXIMAL DIAGNOSTIC Recall Colon cancer screening Health Maintenance Due Date Last Done Comments Cologuard: Ages 45-75 2000 FOBT: Ages 45-75 2000 Sigmoidoscopy: Ages 45-75 2000 COVID-19 Vaccine (3 - Booster) 05/31/2021 12/29/2020, 12/18/2020 DIABETES-EYE EXAM 04/14/2022 04/14/2021, , 04/05/2019, Additional history exists CKD GFR USE SMARTSET 50147 07/09/202201/07, 12/26/2021, 12/07/2021, Additional history exists DIABETES-HGBA1C EVERY 6 MONTHS 07/09/2022 01/07/2022, 11/17/2020, 01/23/2020, Additional history exists BASIC METABOLIC PANEL (BMP) FOR HTN YEARLY 01/07/2023 01/07/2022, 12/26/2021, 12/07/2021, Additional history exists CKD HGB USE SMARTSET 65442 01/07/202301/07, 01/07/2022, 12/26/2021, Additional history exists CKD PHOS USE SMARTSET 34194 01/07/2023 04/12/2021, 03/12/2021, 11/17/2020, Additional history exists [...] on File Type Date Recorded Patient Outside Property Agent Expl anation Advanced Directive Advanced Directive Advanced [...] Camp Other Health Care Hayden r of Alternative Education Teacher Princess Allen Other Health Care Pow er of Alternative Education Teacher Care Teams Dental Assistant Medical Assistant Relationship Specialty Start Date End Date Galdino Andujar, DO 293 [place] [address] PCP - General Internal Medicine 01/07/22 documented as of this encounter
--- OUTSIDE RECORDS SUMMARY | 2023-06-01 04:37 | External Medical Summary | Summary of Care ---
Author Name Unknown Organization [place] [address] Care Team Providers Care Soaker Soda Worker Name Role Phone Galdino Andujar DO Primary Care Provider [phone] Reason for Visit * Reason Onset Date Comments Advice 04/05/2022 Encounter Details Date Type Department Care Team Description 04/05/2022 Telephone Family Practice 65 [facility] [place] [address] [place] [address] Galdino Andujar DO 293 [place], [place] [id number] Advice Allergies Active Allergy Reactions Severity Noted [...] 90 Cap 3 12/18/2019 Active DIURETIC TITRATION PLANIndications:Body Mechanic 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 1 Each 0 04/08/2020 Active Blood Glucose Monitoring Suppl ([place] ULTRA 2) w/Device KIT Use to test [...] hemoglobin A1c goal of 7.0%-8.0% ([facility]) Inject under the skin 60 Units [...] % Nasal Solution Administer into nostril 1 [place] in the morning AND 1 [place] before bedtime. 30 mL 12 02/18/2022 Active [...] mRNA, LNP-s, No Pre serve, 2-Dose Series (Rollstream) 12/29/2020,12/18/2020 Pneumococcal Conjugate Vacci ne, 20-valent ([id number]) 03/12/2022 Pneumococcal Polysaccharide PPV23 (Pneumovax) 08/22/2009,06/15/2006 Seasonal [...] encounter Miscellaneous Notes * Telephone Encounter - Emmett Madrid RPh - 04/05/2022 2:11 PM EDT Pt scheduled 04/[address] [place] [address]. Aware to bring all of her supplies. Emmett Madrid RPh, Pharm D Clinicial Pharmacist 04/05/2022, 2:11 PM * Telephone Encounter - Mariam Page RPh [...] her to schedule something shortly. Mariam Page RPh, PharmD, BCACP, BCGP Clinical Pharmacist [address] [place] [address] 04/05/2022 11:13 AM * Telephone Encounter - ELISSA Whitten - 04/05/2022 10:22 AM EDT Pt called. Needs to speak with pharmacist her dexcom documented in this encounter Plan of Treatment Upcoming Encounters Date Type Specialty Care Team Description 04/07/2022 Office Visit [facility], Pharmacist [address] [place] [address] 2022 Immunization Ancillary [place], Covid19 Vaccine [address] [place] [address] 05/12/2022 Office Visit [facility] Galdino Andujar, 293 [place] [address] 05/12/2022 Office Visit [facility], Pharmacist [address] [place] [address] 07/28/2022 Imaging Radiology 07/28/2022 PulmDiagnostic Pulmonary Function West, Pft [address] [place] [address] 08/05/2022 Nurse Only [facility], Nurse Annual Wellness Visit [address] [place] [address] 08/25/2022 Office Visit Pulmonary Nikita Sanchez MD [address] [place] [id number] Scheduled Procedures Name Priority Associated Diagnoses Date/Ti [...] Additional history exists CKD HGB USE SMARTSET 12681 01/07/202301/07, 01/07/2022, 12/26/2021, Additional history exists CKD PHOS USE SMARTSET 24709 01/07/2023 0412/2021, 03/12/2021, 11/17/2020, Additional history exists [...] Documents on File Type Date Recorded Patient Route Rider Supervisor Expl anation Advanced Directive Advanced Directive [...] Camp Other Health Care Hayden r of Writer Princess Allen Other Health Care Pow er of Writer Care Teams Soaker Soda Worker Relationship Specialty Start Date End Date Galdino Andujar, DO [address] [place] [address] PCP - General Internal Medicine 01/07/22 documented as of this encounter
--- OUTSIDE RECORDS SUMMARY | 2023-06-01 04:37 | External Medical Summary | Summary of Care ---
Author Name Unknown Organization [place] [address] Care Team Providers Care Energy Audit Advisor Name Role Phone Galdino Andujar DO Primary Care Provider [phone] Reason for Visit * Reason Onset Date Comments Advice 04/05/2022 Encounter Details Date Type Department Care Team Description 04/05/2022 Telephone Family Practice 65 [facility] [place] [address] [place] [address] Galdino Andujar DO [address] [place], [place] [phone] Advice Allergies Active Allergy Reactions Severity Noted [...] 90 Cap 3 12/18/2019 Active DIURETIC TITRATION PLANIndications:Data Warehouse Administrator 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 1 Each 0 04/08/2020 Active Blood Glucose Monitoring Suppl ([employer] ULTRA 2) w/Device KIT Use to test [...] % Nasal Solution Administer into nostril 1 [place] in the morning AND 1 [place] before bedtime. 30 mL 12 02/18/2022 Active [...] mRNA, LNP-s, No Pre serve, 2-Dose Series ([employer]) 12/29/2020,12/18/2020 Pneumococcal Conjugate Vacci ne, 20-valent ([id number]) 03/12/2022 Pneumococcal Polysaccharide PPV23 (Pneumovax) 08/22/2009,06/15/2006 Seasonal [...] RP, PharmD, BCACP, BCGP Clinical Pharmacist 65 [facility] 04/05/2022 11:13 AM * Telephone Encounter - ELISSA Whitten - 04/05/2022 10:22 AM EDT Pt called. Needs to speak with pharmacist her dexcom documented in this encounter Plan of Treatment Upcoming Encounters Date Type Specialty Care Team Description 2022 Immunization [employer], Covid19 Vaccine [address] [place] [address] 05/12/2022 Office Visit Family Medicine Galdino Andujar, 293 [place] [place] [address] 05/12/2022 Office Visit [facility], Pharmacist [address] [place] [address] 07/28/2022 Imaging Radiology 07/28/2022 PulmDiagnostic Pulmonary Function West, Pft 132 [facility] [place] [address] 08/05/2022 Nurse Only [employer], Nurse Annual Wellness Visit [address] [place] [address] 08/25/2022 Office Visit Pulmonary Nikita Sanchez MD [address] [place] [id number] Scheduled Procedures Name Priority Associated Diagnoses Date/Ti [...] Additional history exists CKD HGB USE SMARTSET 67009 01/07/202301/07, 01/07/2022, 12/26/2021, Additional history exists CKD PHOS USE SMARTSET 28412 01/07/202312/25, 03/12/2021, 11/17/2020, Additional history exists DIABETES-FOOT [...] Documents on File Type Date Recorded Patient Production Aide Expl anation Advanced Directive Advanced Directive [...] Camp Other Health Care Hayden r of Ext Js Developer Princessambar Allen Other Health Care Pow er of Ext Js Developer Care Teams Energy Audit Advisor Relationship Specialty Start Date End Date Galdino Andujar, DO [address] [place] [address] PCP - General Internal Medicine 01/07/22 documented as of this encounter
--- OUTSIDE RECORDS SUMMARY | 2023-06-01 04:37 | External Medical Summary | Summary of Care ---
Author Name Unknown Organization [place] [address] Care Team Providers Care Rider Ticket Worker Name Role Phone Lexii Andujar DO Primary Care Provider [phone] Reason for Visit * Reason Comments eRx-Medication Refill Encounter Details Date Type Department Care Team Description 03/31/2022 Refill Family Practice 65 [facility] [place] [address] [place] [phone] Lexii Andujar DO [address] [place] [address] Fibromyalgia Allergies Active Allergy Reactions Severity Noted Date Comments Codeine 07/08/2014 hallucination Pollen 05/18/2019 Heparin 09/04/2009 Heparin Induced Thrombocytopenia Hydrocodone Neuro complications (Please comment) 07/28/2020 Empagliflozin Other (Please comment) Medium 05/17/2018 3 yeast infections in 6 weeks after starting Morphine And Related 09/16/1997 Hallucinations Tetanus Toxoid Other (Please comment) 06/15/2011 Passed out documented as of this encounter (statuses as of 04/01/2022) Medications Medication Sig Dispensed Refills Start Date [...] 0 Active Blood Glucose Monitoring Suppl ([employer] ULTRA 2) w/Device KIT Use to test BG values 1 Kit 0 0 Active clobetasol propionate (TEMOVATE) 0.05 % creamIndications:Kalee rosas planus Apply to rash on the hands and dorsal feet twice daily x 1 week, then as needed for flares. 30 g 1 0 Active Magnesium Oxide 400 (241.3 Mg) MG Oral TabletIndications:H ypomagnesemia Take 400 mg by mouth daily. 90 Tab 0 0 Active Acetaminophen 500 MG Oral Tablet (Acetaminophen Extra Strength) Take 500 mg by mouth every 6 hours as needed. 0 Active Meclizine HCl 12.5 MG Oral Tablet (Antivert)Indicatio ns:Vertigo Take 1 Tab by mouth 3 times a day as needed for Dizziness. 30 Tab 1 1 Active Colchicine 0.6 MG Oral TabletIndications:L eukocytoclastic vasculitis (HCC) Take 1/2 tab daily 45 Tab 1 1 Active Additional Information Patient not taking. Reported on 02/03/2022 Nerve Pain Relief Sublingual Tablet SublingualIndicatio ns:pt [...] before bedtime. 90 Tablet 0 2 Active rOPINIRole HCl 2 MG Oral Tablet (Requip)Indications :Restless legs syndrome Take by mouth 1 Tablet before bedtime. 100 Tablet 1 2 Active Cyclobenzaprine HCl 10 [...] or Wheezing. 18 g 3 2 Active Fluticasone-Salmete rol 115-21 MCG/ACT Inhalation Aerosol (Advair HFA) Inhale by mouth 2 Puffs in the morning AND 2 Puffs before bedtime. 12 g 12 2 Active Azelastine HCl 0.1 % Nasal Solution Administer into nostril 1 [place] in the morning AND 1 [place] before bedtime. 30 mL 12 2 Active [...] AT BEDTIME 100 Capsule 3 2 Active Nortriptyline HCl 50 MG Oral Capsule (Pamelor)Indication s:Fibromyalgia Take by mouth 1 Capsule before bedtime. 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/31/2021 Atherosclerosis of [place] coronary arter y without angina pectoris 12/31/2021 [...] 03/25/2016 Fibromyalgia 02/02/2016 Abnormality of gait 02/02/[address] 08/19/2014 History of pulmonary [...] as of this encounter (statuses as of 04/01/2022) Resolved Problems Problem Noted Date Resolved Date [...] 76%, time <89% 6:21 hours, TINY 47 [facility] Nontoxic uninodular goiter 06/16/201108/17 Body mass index [...] as of this encounter (statuses as of 04/01/2022) Immunizations Name Administration Dates Next Due COVID-19 mRNA, LNP-s, No Pre serve, 2-Dose Series ([employer]) 12/29/2020,12/18/2020 Pneumococcal Conjugate Vacci ne, 20-valent ([id number]) 03/12/2022 Pneumococcal Polysaccharide PPV23 (Pneumovax) 08/22/2009,06/15/2006 Seasonal [...] encounter Miscellaneous Notes * Telephone Encounter - Trenton Mitchell RPh - 04/01/2022 10:16 AM EDT Signed Prescriptions: Disp Refills Nortriptyline HCl 50 MG Oral Capsule (Sho*100 Ca*3 Sig: TAKE ONE CAPSULE BY MOUTH AT BEDTIMEAuthorizing Provider: LEXII ANDUJAR User: TRENTON MITCHELL--- documented in this encounter Plan of Treatment Upcoming Encounters Date Type Specialty Care Team Description 04/05/2022 Office Visit Cardiology Marjorie Powell PA-C [address] [place] [address] 05/12/2022 Office Visit Family Medicine Lexii Andujar, 293 [place] [address] 05/12/[address] [facility], Pharmacist [address] [place] [address] 07/28/2022 Imaging Radiology 07/28/2022 PulmDiagnostic Pulmonary Function West, Pft 132 [facility] [place] [address] 08/05/2022 Nurse Only [facility], Nurse Annual Wellness Visit [address] [place] [address] 08/25/2022 Office Visit Pulmonary Nikita Sanchez MD [address] [place] [id number] Scheduled Procedures Name Priority Associated Diagnoses Date/Ti [...] 2022 07/20/2021, 06/13/2020, 07/23/2019, Additional history exists CKD GFR USE SMARTSET 64585 07/09/202201/07, 12/26/2021, 12/07/2021, Additional history exists DIABETES-HGBA1C EVERY 6 MONTHS 07/09/2022 01/07/2022, 11/17/2020, 01/23/2020, Additional history exists BASIC METABOLIC PANEL (BMP) FOR HTN YEARLY 01/07/2023 01/07/2022, 12/26/2021, 12/07/2021, Additional history exists CKD HGB USE SMARTSET 80800 01/07/202301/07, 01/07/2022, 12/26/2021, Additional history exists CKD PHOS USE SMARTSET 20333 01/07/202312/25, 03/12/2021, 11/17/2020, Additional history exists DIABETES-FOOT [...] Diagnoses Diagnosis Fibromyalgia Mylagia and myositis, unspecified documented in this encounter Advance Directives Documents on File Type Date Recorded Patient Line Therapist Expl anation Advanced Directive Advanced Directive Advanced [...] Camp Other Health Care Hayden r of Lance Crewmember Princess Allen Other Health Care Pow er of Lance Crewmember Care Teams Rider Ticket Worker Relationship Specialty Start Date End Date Lexii Andujar, DO 293 [place] [address] PCP - General Internal Medicine 01/07/22 documented as of this encounter
--- OUTSIDE RECORDS SUMMARY | 2023-06-01 04:37 | External Medical Summary | Summary of Care ---
Author Name Unknown Organization [place] [address] Care Team Providers Care Diamond Polisher Name Role Phone Galdino Andujar DO Primary Care Provider [phone] Reason for Visit * Reason Onset Date Comments Advice 04/05/2022 Encounter Details Date Type Department Care Team Description 04/05/2022 Telephone Family Practice 65 [facility] [place] [address] [place] [address] Galdino Andujar DO [address] [place], [place] [phone] Advice Allergies Active Allergy Reactions Severity Noted [...] 90 Cap 3 12/18/2019 Active DIURETIC TITRATION PLANIndications:Rag Cutting Machine Tender 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 1 Each 0 04/08/2020 Active Blood Glucose Monitoring Suppl ([employer] ULTRA 2) w/Device KIT Use to test [...] % Nasal Solution Administer into nostril 1 [place] in the morning AND 1 [place] before bedtime. 30 mL 12 02/18/2022 Active [...] mRNA, LNP-s, No Pre serve, 2-Dose Series ([employer]) 12/29/2020,12/18/2020 Pneumococcal Conjugate Vacci ne, 20-valent ([id number]) 03/12/2022 Pneumococcal Polysaccharide PPV23 (Pneumovax) 08/22/2009,06/15/2006 Seasonal [...] RP, PharmD, BCACP, BCGP Clinical Pharmacist 65 [facility] 04/05/2022 11:13 AM * Telephone Encounter - ELISSA Whitten - 04/05/2022 10:22 AM EDT Pt called. Needs to speak with pharmacist her dexcom documented in this encounter Plan of Treatment Upcoming Encounters Date Type Specialty Care Team Description 2022 Immunization [employer], Covid19 Vaccine [address] [place] [address] 05/12/2022 Office Visit Family Medicine Galdino Andujar, 293 [place] [address] 05/12/2022 Office Visit [facility], Pharmacist [address] [place] [address] 07/28/2022 Imaging Radiology 07/28/2022 PulmDiagnostic Pulmonary Function West, Pft 132 [facility] [place] [address] 08/05/2022 Nurse Only [employer], Nurse Annual Wellness Visit [address] [place] [address] 08/25/2022 Office Visit Pulmonary Nikita Sanchez MD [address] [place] [id number] Scheduled Procedures Name Priority Associated Diagnoses Date/Ti [...] Additional history exists CKD HGB USE SMARTSET 69985 01/07/202301/07, 01/07/2022, 12/26/2021, Additional history exists CKD PHOS USE SMARTSET 21322 01/07/202312/25, 03/12/2021, 11/17/2020, Additional history exists DIABETES-FOOT [...] Documents on File Type Date Recorded Patient Loader Helper Sorting Yard Expl anation Advanced Directive Advanced Directive Advanced [...] Camp Other Health Care Hayden r of Motel Maid Princessambar Allen Other Health Care Pow er of Motel Maid Care Teams Diamond Polisher Relationship Specialty Start Date End Date Galdino Andujar, DO [address] [place] [address] PCP - General Internal Medicine 01/07/22 documented as of this encounter
--- OUTSIDE RECORDS SUMMARY | 2023-06-01 04:38 | External Medical Summary | Summary of Care ---
Author Name Unknown Organization [place] [address] Care Team Providers Care Note Taker Name Role Phone Galdino Andujar DO Primary Care Provider [phone] Reason for Visit * Reason Onset Date Comments Other 02/26/2022 Encounter Details Date Type Department Care Team Description 02/26/2022 Telephone HEALTH & WELLNESS [place], [facility] Gaggerman Other Allergies Active Allergy Reactions Severity Noted Date Comments Codeine 07/08/2014 hallucination Pollen 05/18/2019 Heparin 09/04/2009 Heparin Induced Thrombocytopenia Hydrocodone Neuro complications (Please comment) 07/28/2020 Empagliflozin Other (Please comment) Medium 05/17/2018 3 yeast infections in 6 weeks after starting Morphine And Related 09/16/1997 Hallucinations Tetanus Toxoid Other (Please comment) 06/15/2011 Passed out documented as of this encounter (statuses as of 02/26/2022) Medications Medication Sig Dispensed Refills Start Date [...] 90 Cap 3 12/18/2019 Active DIURETIC TITRATION PLANIndications:Spa Supervisor 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 1 Each 0 04/08/2020 Active Blood Glucose Monitoring Suppl ([employer] ULTRA 2) w/Device KIT Use to test BG values 1 Kit 0 05/20/2020 Active clobetasol propionate (TEMOVATE) 0.05 % creamIndications:Lic hen planus Apply to rash on the hands and dorsal feet twice daily x 1 week, then as needed for flares. 30 g 1 06/03/2020 Active Additional Information Patient not taking. Reported on 01/07/2022 Magnesium Oxide 400 (241.3 Mg) MG Oral TabletIndications:Hy pomagnesemia Take 400 mg by mouth daily. 90 Tab 0 07/24/2020 Active Additional Information Patient not taking. Reported on 12/31/2021 Acetaminophen 500 MG Oral Tablet (Acetaminophen Extra [...] 7.0%-8.0% ([facility]) Inject under the skin 60 Units in the morning. 45 mL 3 11/04/2021 Active traMADol HCl 50 MG Oral Tablet (Ultram)Indications: Chronic pain syndrome Take by mouth 1 Tablet every 8 hours as needed for Pain, Severe. 90 Tablet 0 12/31/2021 Active Apixaban 5 MG Oral Tablet (Eliquis) Take by mouth 1 Tablet in the morning AND 1 Tablet before bedtime. 10mg twice a day x 7 days then 5mg twice a day . 180 Tablet 3 01/13/2022 Active Gabapentin 300 MG Oral Capsule (Neurontin) Take by mouth 1 Capsule in the morning AND 1 Capsule before bedtime. 200 Capsule 3 01/19/2022 Active clonazePAM 0.5 MG Oral Tablet (KlonoPIN)Indication s:Anxiety state Take by mouth 1 Tablet in the morning AND 1 Tablet before bedtime. 60 Tablet 0 02/08/2022 Active DULoxetine HCl 30 MG Oral Capsule [...] % Nasal Solution Administer into nostril 1 [place] in the morning AND 1 [place] before bedtime. 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/31/2021 Atherosclerosis of [place] coronary arter y without angina pectoris 12/31/2021 Carotid artery stenosis, asymptomatic, r ight 12/31/2021 Leukocytoclastic vasculitis 12/31/2021 Acute deep vein thrombosis ( DVT) of proximal vein of lower extremity, unspecified laterality 12/03/2021 Spinal stenosis of lumbar region without neurogenic [...] 03/25/2016 Fibromyalgia 02/02/2016 Abnormality of gait 02/02/[address] [place] [address] 08/19/2014 History of [...] as of this encounter (statuses as of 02/26/2022) Resolved Problems Problem Noted Date Resolved Date Hypotension 12/19/2020 01/07/2022 Uncontrolled type 2 diabetes [...] as of this encounter (statuses as of 02/26/2022) Immunizations Name Administration Dates Next Due COVID-19 mRNA, LNP-s, No Pre serve, 2-Dose Series ([employer]) 12/29/2020,12/18/2020 Pneumococcal Polysaccharide PPV23 (Pneumovax) 08/22/2009,06/15/2006 Seasonal Influenza, [...] encounter Miscellaneous Notes * Telephone Encounter - Poly Benítez Gaggerman - 02/26/2022 9:22 AM EDT Called patient due to missing her one-on-one session this morning. She is rescheduled for next weekon 03/05 at 3:00 p.m. documented in this encounter Plan of Treatment Upcoming Encounters Date Type Specialty Care Team Description 03/03/2022 Hospital Encounter Surgery Raj Ahn DO [address] [place] [address] 03/03/2022 Surgery Surgery Raj Ahn DO [address] [place] [address] INJECTION SACROILIAC JOINT 03/08/2022 Imaging Radiology 03/12/2022 Office Visit Family Medicine Galdino Andujar DO 293 [place] [address] 03/15/2022 Telemedicine [facility] [address] [place] [address] 04/05/2022 Office Visit Cardiology Marjorie Powell PA-C 132 [facility] [place] [address] 04/14/2022 Nurse Only [employer], Nurse Annual Wellness Visit [address] 293 [facility], [place] [address] 07/28/2022 Imaging Radiology 07/28/2022 PulmDiagnostic Pulmonary Function [facility], [facility] [place] [address] 08/25/2022 Office Visit Pulmonary Nikita Sanchez MD [address] [place] [address] Scheduled Procedures Name Priority Associated Diagnoses Date/Ti me INJECTION SACROILIAC JOINT Inflammation of sacroiliac joint (HCC) 03/03/2022 2:00 PM EDT COLONOSCOPY FLEXIBLE PROXIMAL DIAGNOSTIC Recall Colon cancer screening Health Maintenance Due Date Last Done Comments Cologuard: Ages 45-75 2000 FOBT: Ages 45-75 2000 Sigmoidoscopy: Ages 45-75 2000 Pneumococcal Vaccine: 65+ Years (2 - PCV) 08/22/2010 08/22/2009, 06/15/2006 COVID-19 Vaccine (3 - Booster) 05/31/2021 12/29/2020, 12/18/2020 DIABETES-EYE EXAM 04/14/2022 04/14/2021, , 04/05/2019, Additional history exists CKD GFR USE SMARTSET 73131 07/09/202201/07, 12/26/2021, 12/07/2021, Additional history exists DIABETES-HGBA1C EVERY 6 MONTHS 07/09/2022 01/07/2022, 11/17/2020, 01/23/2020, Additional history exists BASIC METABOLIC PANEL (BMP) FOR HTN YEARLY 01/07/2023 01/07/2022, 12/26/2021, 12/07/2021, Additional history exists CKD HGB USE SMARTSET 78914 01/07/202301/07, 01/07/2022, 12/26/2021, Additional history exists CKD PHOS USE SMARTSET 51904 01/07/202312/25, 03/12/2021, 11/17/2020, Additional history exists DIABETES-FOOT [...] Completed , 06/13/2020, 07/23/2019, Additional history exists GARDASIL-HPV IMMUNIZATION SERIES Aged Out No longer eligible based on patient's age to complete this topic MENINGOCOCCAL (MENACTRA/MENVEO) Aged Out No longer eligible based on patient's age to complete this topic documented as of this encounter Implants Not on filedocumented as of this encounter Advance Directives Documents on File Type Date Recorded Patient Steak Sauce Maker Expl anation Advanced Directive Advanced Directive [...] Camp Other Health Care Hayden r of Acid Painter Princess Allen Other Health Care Pow er of Acid Painter Care Teams Note Taker Relationship Specialty Start Date End Date Galdino Andujar, DO [address] [place] [address] PCP - General Internal Medicine 01/07/22 documented as of this encounter
--- OUTSIDE RECORDS SUMMARY | 2023-06-01 04:38 | External Medical Summary | Summary of Care ---
Author Name Unknown Organization [place] [address] Care Team Providers Care Quality Controller Name Role Phone Galdino Andujar DO Primary Care Provider [phone] Reason for Visit * Reason Onset Date Comments Test Results 03/09/2022 Encounter Details Date Type Department Care Team Description 03/09/2022 Telephone Family Practice [address] [facility] [place] [address] [place] [address] Galdino Andujar DO [address] [place] [address] Test Results Allergies Active Allergy Reactions Severity Noted Date Comments Codeine 07/08/2014 hallucination Pollen 05/18/2019 Heparin 09/04/2009 Heparin Induced Thrombocytopenia Hydrocodone Neuro complications (Please comment) 07/28/2020 Empagliflozin Other (Please comment) Medium 05/17/2018 3 yeast infections in 6 weeks after starting Morphine And Related 09/16/1997 Hallucinations Tetanus Toxoid Other (Please comment) 06/15/2011 Passed out documented as of this encounter (statuses as of 03/09/2022) Medications Medication Sig Dispensed Refills Start Date [...] 90 Cap 3 12/18/2019 Active DIURETIC TITRATION PLANIndications:Business Reporting Developer 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 1 Each 0 04/08/2020 Active Blood Glucose Monitoring Suppl (iRezQ ULTRA 2) w/Device KIT Use to test [...] 7.0%-8.0% ([facility]) Inject under the skin 60 Units [...] % Nasal Solution Administer into nostril 1 Fidelity in the morning AND 1 Fidelity before bedtime. 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 Pt verbalized understanding and will comply. Pt was educated on availability of COVID vaccines that are given here on Tuesdays. Pt is scheduled for follow up visit on 03/12. Pt aware and will comply. * Telephone Encounter - Mariam Ray RN - 03/09/2022 11:23 AM EDT ----- Message from Galdino Andujar DO sent at 03/08/2022 9:38 PM EDT ----- Regarding: US - Could you possibly address this the patient? She has appt 03/12/22 - Tuesday Chronic DVT present in right leg Continue Apixaban documented in this encounter Plan of Treatment Upcoming Encounters Date Type Specialty Care Team Description 03/12/2022 Office Visit Family Medicine Galdino Andujar DO 293 [facility], [place] [address] 03/15/2022 Telemedicine [facility], Pharmacist 65 [facility] [address] [facility] [place] [address] 04/05/2022 Office Visit Cardiology Marjorie Powell PA-C 132 [facility] [place] [address] 04/14/2022 Nurse Only Ancillary [place], Nurse Annual Wellness Visit 65 [facility] 293 [facility], [place] [address] 07/28/2022 Imaging Radiology 07/28/2022 PulmDiagnostic Pulmonary Function [place], [facility] [place] [address] 08/25/2022 Office Visit Pulmonary [facility]ita Sanchez [facility] [address] [facility] [place] [address] Scheduled Procedures Name Priority Associated Diagnoses Date/Ti [...] Additional history exists CKD GFR USE SMARTSET 60101 07/09/202201/07, 12/26/2021, 12/07/2021, Additional history exists DIABETES-HGBA1C EVERY 6 MONTHS 07/09/2022 01/07/2022, 11/17/2020, 01/23/2020, Additional history exists BASIC METABOLIC PANEL (BMP) FOR HTN YEARLY 01/07/2023 01/07/2022, 12/26/2021, 12/07/2021, Additional history exists CKD HGB USE SMARTSET 13561 01/07/202301/07, 01/07/2022, 12/26/2021, Additional history exists CKD PHOS USE SMARTSET 92777 01/07/202312/25, 03/12/2021, 11/17/2020, Additional history exists DIABETES-FOOT [...] Documents on File Type Date Recorded Patient Content Coordinator Expl anation Advanced Directive Advanced Directive [...] Camp Other Health Care Hayden r of Record Systems Analyst Princess Staplesfany Other Health Care Pow er of Record Systems Analyst Care Teams Quality Controller Relationship Specialty Start Date End Date Galdino Andujar, DO [address] [facility] [place] [address] PCP - General Internal Medicine 01/07/22 documented as of this encounter
--- OUTSIDE RECORDS SUMMARY | 2023-06-01 04:38 | External Medical Summary | Summary of Care ---
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 Name Role Phone Galdino Andujar DO Primary Care Provider [phone] Reason for Visit * Reason Comments [facility]: Maintenance Encounter Details Date Type Department Care Team Description 02/23/2022 Home Visit [facility], [facility] 132 [facility] [place] [address] Vera Capellan RN 132 [facility] [place] [address] Allergies Active Allergy Reactions Severity Noted Date Comments Codeine 07/08/2014 hallucination Pollen 05/18/2019 Heparin 09/04/2009 Heparin Induced Thrombocytopenia Hydrocodone Neuro complications (Please comment) 07/28/2020 Empagliflozin Other (Please comment) Medium 05/17/2018 3 yeast infections in 6 weeks after starting Morphine And Related 09/16/1997 Hallucinations Tetanus Toxoid Other (Please comment) 06/15/2011 Passed out documented as of this encounter (statuses as of 02/24/2022) Medications Medication Sig Dispensed Refills Start Date [...] 90 Cap 3 12/18/2019 Active DIURETIC TITRATION PLANIndications:Travel Accommodation Inspector 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 1 Each 0 04/08/2020 Active Blood Glucose Monitoring Suppl (Leversense ULTRA 2) w/Device KIT Use to test [...] of 7.0%-8.0% ([facility]) Inject 40 units with meals + sliding [...] % Nasal Solution Administer into nostril 1 Gilbert in the morning AND 1 Gilbert before bedtime. 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 Atherosclerosis of [place] coronary arter y without angina pectoris [...] 03/25/2016 Fibromyalgia 02/02/2016 Abnormality of gait 02/02/[address] [address] 08/19/2014 History of pulmonary [...] as of this encounter (statuses as of 02/24/2022) Resolved Problems Problem Noted Date Resolved Date [...] as of this encounter (statuses as of 02/24/2022) Immunizations Name Administration Dates Next Due COVID-19 mRNA, LNP-s, No Pre serve, 2-Dose Series ([facility]) 12/29/2020,12/18/2020 Pneumococcal Polysaccharide PPV23 (Pneumovax) 08/22/2009,06/15/2006 Seasonal [...] Reading Time Taken Comments Blood Pressure 100/60 02/23/2022 11:42 AM EDT Pulse 80 02/23/2022 11:42 AM EDT Temperature 35.8 C (96.5 F) 02/23/2022 1 1:42 AM EDT Respiratory Rate 18 02/23/2022 11:4 2 AM EDT Oxygen Saturation 95% 02/23/2022 11: 42 AM EDT 02 on at 2 l/min via nc Inhaled Oxygen Concentration - - Weight - - Height - - Body Mass Index - - documented in this encounter Progress Notes * Vera Capellan RN - 02/23/2022 11:29 AM EDT [facility] Pen Set Assembler Visit Date: 02/23/2022 Time: 11:29 AM Name: Stephanie Camp : 1955 Current Concerns: Pt seen for return RNCM visit Pt reports she is going to [address] and has been attending activities there to help in strengthening Also saw Pulm and started Azelastine and Fluticasone-Salmeterol inhaler Pt reports it has been helping, especially the Azelastine for her allergies Pt reports no new issues. Has not had any utilizations recently Has not needed any intervention by [facility]. Discussed with pt and in agreement with disenrollment from [facility] Will transition to outpatient CM Will have cg thru [facility] for 5 days a week starting Tuesday Physical Exam: BP 100/60 | Pulse 80 | Temp 35.8 C (96.5 F) | Resp 18 | LMP 03/11/2003 | SpO2 95% Comment: 02 on at 2 l/min via nc Pain 0 Physical Exam Constitutional: Appearance: She is obese. HENT: Nose: Nose normal. Cardiovascular: Rate and Rhythm: Normal rate and [...] arthralgias, back pain and gait problem. Skin: Negative. Psychiatric/Behavioral: Negative. Medication Reconciliation: (See medication list) Does patient take medications as ordered: Yes Patient Well Being: PHQ2/9: No questionnaires available. NO change in living situation Denies any recent falls [facility]-10 Completed this Visit: No. Routine visit and No falls since last visit Advanced Care Planning: POLST. ACP updated last visit Patient's Goals of Care: 1. Get stronger 2. Walk better 3. Stay out of hospital Reinforcement/Education: Reviewed HF symptom monitoring: -Weigh self [...] and Purspose. Treatment/Plan: Continue meds as prescribed Ambulate with roller walker at ALL times o2 2lnc qhs and day prn cpap with 2l qhs Apap, tramadol and topical pain relievers for pain No NSAIDS Low na, ccd diet, 1.5L fluid restriction Ck bsgs and record tid MTM for DM management Wear b/l le support hose-on day/off night Zaroxolyn prn for fluid overload-take only as advised Wear PERS at all times Warm hand off to OP CM Debbie Deleon Home Interventions Provided: Home Intervention: Other; Evaluation Reinforced current Plan of Care, including self-management and medication regimen Patient's 'Red Flags': 1. Increased SOB - with rest or talking 2. Increased edema/abd bloating 3. Fall w/ injury Patient Needs to Remember: Call [facility] at with any new or worsening health concerns or problems, red flag symptoms. Referrals Needed: Other Outpatient CM Follow Up: Is there cellular connectivity/connectivity in the home? Yes Does the patient have internet in the home? Yes Patient encouraged to call the intake phone number for all urgent but not emergent issues. Is the patient new to [facility] within the last 30 days? No, Assess appropriateness for upcoming telehealth visits. Cancel telehealth visits & schedule home visit with care team otr truck driver(s)as indicated. Provider is in agreement with Plan of Care: Yes. Vera Capellan RN 02/23/2022 11:29 AM documented in this encounter Plan of Treatment Upcoming Encounters Date Type Specialty Care Team Description 03/03/2022 Hospital Encounter Surgery Raj Ahn DO [address] [place] [address] 03/03/2022 Surgery Surgery Raj Ahn DO [address] [place] [address] INJECTION SACROILIAC JOINT 03/08/2022 Imaging Radiology 03/12/2022 Office Visit Family Medicine Galdino Andujar, DO 293 [facility], [place] [address] 03/15/2022 Telemedicine Family [facility], Pharmacist [address], [place] [address] 04/05/2022 Office Visit Cardiology [facility] Powell [facility]-C [facility] [place] [address] 04/14/2022 Nurse Only Ancillary [place], Nurse Annual Wellness Visit 65 [facility] 293 [facility], [place] [address] 07/28/2022 Imaging Radiology 07/28/2022 PulmDiagnostic Pulmonary Function [place], Pft [address] [facility] [place] [address] 08/25/2022 Office Visit Pulmonary Nikita Sanchez MD [address] [place] [address] Scheduled Procedures Name Priority Associated Diagnoses Date/Ti [...] Additional history exists CKD GFR USE SMARTSET 51714 07/09/202201/07, 12/26/2021, 12/07/2021, Additional history exists DIABETES-HGBA1C EVERY 6 MONTHS 07/09/2022 01/07/2022, 11/17/2020, 01/23/2020, Additional history exists BASIC METABOLIC PANEL (BMP) FOR HTN YEARLY 01/07/2023 01/07/2022, 12/26/2021, 12/07/2021, Additional history exists CKD HGB USE SMARTSET 89903 01/07/202301/07, 01/07/2022, 12/26/2021, Additional history exists CKD PHOS USE SMARTSET 94952 01/07/202312/25, 03/12/2021, 11/17/2020, Additional history exists DIABETES-FOOT [...] Documents on File Type Date Recorded 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
--- OUTSIDE RECORDS SUMMARY | 2023-06-01 04:38 | External Medical Summary | Summary of Care ---
Author Name Unknown Organization [place] [address] Care Team Providers Care Kennel Technician Name Role Phone Pratima Galdino Neal DO Primary Care Provider [phone] Reason for Referral * Precert (Within 10 days (routine)) - Pending Review Specialty Diagnoses / Procedures Referred By Contac t Referred To Contact Radiology Diagnoses ILD (interstitial lung disease) (HCC) Procedures CT CHEST WO CONTRAST Nikita Sanchez MD [address] [id number] Referral ID Status Reason Start Date Expiration Date V isits Requested Visits Authorized [id number] Pending Review 05/21/2022 999 999 Reason for Visit * Reason Comments NEW PATIENT * Evaluate & Treat - Unlimited Visits (Within 10 days (routine)) - Closed Specialty Diagnoses / Procedures Referred By Contac t Referred To Contact Pulmonary Diseases / Pulmonary Diagnoses Chronic hypoxemic respiratory failure (HCC) Celsa Tafoya CRNP [address] [facility] [place] [address] Referral ID Status Reason Start Date Expiration Date V isits Requested Visits Authorized [id number] Closed Specialty Services Required 10/08/2021 1 1 Encounter Details Date Type Department Care Team Description 02/18/2022 Office Visit [facility] [address] [facility] [place] [address] Nikita Sanchez MD [address] [id number] Chronic hypoxemic respiratory failure (HCC)*; SOB (shortness of breath); Small airways disease; ILD (interstitial lung disease) (HCC); Chronic diastolic congestive heart failure (HCC); Morbid obesity with BMI of 50.0-59.9, adult (HCC); Acute deep vein thrombosis (DVT) of proximal vein of right lower extremity (HCC); History of pulmonary embolus (PE) Allergies Active Allergy Reactions Severity Noted Date Comments Codeine 07/08/2014 hallucination Pollen 05/18/2019 Heparin 09/04/2009 Heparin Induced Thrombocytopenia Hydrocodone Neuro complications (Please comment) 07/28/2020 Empagliflozin Other (Please comment) Medium 05/17/2018 3 yeast infections in 6 weeks after starting Morphine And Related 09/16/1997 Hallucinations Tetanus Toxoid Other (Please comment) 06/15/2011 Passed out documented as of this encounter (statuses as of 02/18/2022) Medications Medication Sig Dispensed Refills Start Date [...] 90 Cap 3 12/18/2019 Active DIURETIC TITRATION PLANIndications:Hand Striper 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 1 Each 0 04/08/2020 Active Blood Glucose Monitoring Suppl (LuxTicket.sgTOUCH ULTRA 2) w/Device KIT Use to test [...] goal of 7.0%-8.0% ([facility]) Inject 40 units with meals + sliding scale 1 units for every 25 units BG > 150. 121 mL 3 11/04/2021 Active Tresiba FlexTouch 100 UNIT/ML Subcutaneous Solution Pen-injector (Insulin Degludec)Indications :Type 2 diabetes mellitus with hemoglobin A1c goal of 7.0%-8.0% ([facility]) Inject under the skin 60 Units [...] % Nasal Solution Administer into nostril 1 [place] in the morning AND 1 [place] before bedtime. 30 mL 12 02/18/2022 Active Hospital, Clinic, or Other Facility Administered Medication Ordered Dose Route Frequency Start Date End Date Status Albuterol Sulfate (Proventil) (2.5 MG/3ML) 0.083% inhalation solution 2.5 mgIndications:Chronic hypoxemic respiratory failure (HCC) 2.5 mg NEBULIZER Q4H PRN 10/08/2021 Active documented as of this encounter (statuses as of 02/18/2022) Active Problems Problem Noted Date Encounter for [...] 03/25/2016 Fibromyalgia 02/02/2016 Abnormality of gait 02/02/[address] 08/19/2014 History of pulmonary [...] as of this encounter (statuses as of 02/18/2022) Resolved Problems Problem Noted Date Resolved Date [...] as of this encounter (statuses as of 02/18/2022) Immunizations Name Administration Dates Next Due COVID-19 [...] Sign Reading Time Taken Comments Blood Pressure 128/80 02/18/2022 2:03 PM EDT Pulse 118 02/18/2022 2:03 PM EDT Temperature 36.3 C (97.3 F) 02/18/2022 2 :03 PM EDT Respiratory Rate 20 02/18/2022 2:03 PM EDT Oxygen Saturation 89% 02/18/2022 2:0 4 PM EDT O2 3LPM on demand, amb Inhaled Oxygen Concentration - - Weight 151.5 kg (334 lb 1.3 oz) 02/18/2022 2:03 PM EDT Height 162.6 cm (5' 4") 02/18/2022 2:03 PM EDT Body Mass Index 57.34 02/18/2022 2:03 PM EDT documented in this encounter Patient Instructions * Patient Instructions* Nikita Sanchez MD - 02/18/2022 2:18 PM EDT You are due for you covid booster. Covid vaccine information discussed with the patient. They understand it is safe, effective and highly recommended. Given the number, , to call and schedule an appointment to get the vaccine. Can also schedule online at [email or web address]. documented in this encounter Progress Notes * Nikita Sanchez MD - 02/18/2022 2:01 PM EDT INITIAL PULMONARY CONSULTATION NOTE REFERRING PHYSICIAN: Celsa SIMPSON REASON FOR REFERRAL: Chronic respiratory failure HPI: 66-year-old female hypoxic respiratory failure, chronic heart failure preserved EF, ELISSA CPAP, history of PE, morbid obesity, GERD, recurrent DVT status post IVC filter, type 2 diabetes and CKD 3B here as a new patient. Hx of severe respiratory failure requiring tracheostomy in 2008 due to a pneumonia complicated by PE. Using 2 L NC at rest, 3 l with exertion, cpap at night. She has a daily chronic cough She has daily chronic thick light yellow sputum which is overall at her baseline She denies hemoptysis She has daily wheezing She becomes short of breath after minimal exertion. Can walk about 20 feet without stopping. Trouble with doing her ADLs Gwendolyn had 0 number or ER visits and 0 number of courses of prednisone related to his breathing in the last year She is a former smoker. Quit 1996. /2 from age 20s until she was 44ish. > 10 pack years. She has hx of pneumonia Her current inhaler regime is none She has hay fever/seasonal allergies- not any thing directly. Has nasal congestion, post nasal drip, sneezing, itchy eyes and nose. Worse in spring and fall She denies night time cough Past Medical History: Diagnosis Date ELSIE (acute kidney injury) ([facility]) 06/12/2018 Allergic rhinitis due to other allergen Chronic hypoxemic respiratory failure ([facility]) 01/07/2022 Diverticulosis of colon 01/28/2006 Essential hypertension with goal blood pressure less than 140/90 02/22/2014 ELLIE (generalized anxiety disorder) 09/13/[address] 08/19/2014 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[facility]) 08/22/2009 History of pulmonary embolus (PE) 07/16/2014 HTN, goal below 140/90 Impetigo 09/27/2018 Obesity, BMI not known Perforation of intestine ([facility]) 1996 COLON -- 1996 Pneumonia in aspergillosis(484.6) 09/14/2009 Recurrent deep vein thrombosis (DVT) of both lower extremities ([facility]) 01/07/2022 Spinal stenosis of lumbar region without neurogenic claudication 07/15/2020 Spontaneous pneumothorax 09/14/2009 Statin intolerance 07/16/2014 Type 2 diabetes mellitus with hemoglobin A1c goal of less than 8.0% ([facility]) 01/07/2022 Past Surgical History: Procedure Laterality Date ARTHROPLASTY KNEE TOTAL Right 07/24/14 R COLONOSCOPY, DIAGNOSTIC (RECTUM) 02/18/2016 normal, repeat 10 yrs/[facility] COLONOSCOPY, GI REFERRAL OP 01/28/06 diverticulosis--repeat 10 years INCISION OF [place], PLANNED 06/03/2011 TRACHEOSTOMY PLANNED performed by DANNY HOLDER at [place] [facility] INJECT DX/THER SUBSTANCE INTERLAMINAR LUMBAR/SACRAL W IMAGE GUIDE 05/26/2020 INJECTION SPINE LUMBAR OR SACRAL performed by Rja Ahn DO at OR [facility] INJECT DX/THER SUBSTANCE INTERLAMINAR LUMBAR/SACRAL W IMAGE GUIDE 05/14/2021 INJECTION SPINE LUMBAR OR SACRAL performed by Raj Ahn DO at OR [facility] INJECT DX/THER SUBSTANCE INTERLAMINAR LUMBAR/SACRAL W IMAGE GUIDE 08/13/2021 INJECTION SPINE LUMBAR OR SACRAL performed by Raj Ahn DO at OR [facility] KNEE ARTHROSCOPY/DEBRIDEMENT 07/[address] PERMANENT GASTROSTOMY TUBE 09/06/09 GASTROSTOMY WITH CONSTUCTION GASTRIC TUBE performed by AMADOU NUNEZ at [facility] REMOVAL OF THYROID GLAND 06/15/2011 THYROIDECTOMY INCLUDING SUBSTERNAL THYROID CERVICAL APPROACH performed by DANNY HOLDER at [place] [facility] REMOVE GALLBLADDER 09/06/09 CHOLECYSTECTOMY performed by AMADOU NUNEZ at [facility] REPAIR RECURRENT INCISIONAL HERNIA 1998 REVISION OF COLOSTOMY, SIMPLE 1997 SACROILIAC JOINT INJECT W/GUIDANCE 07/28/2020 INJECTION SACROILIAC JOINT performed by Raj Ahn DO at OR [facility] SUTURE, LARGE INTESTINE W/COLOSTOMY 1996 perforation R colon with colostomy VENA CAVA FILTER/LIGATION/CLIP 08/19/09 Frank filter placement through the right femoral 08/19/[address] Lerma at [facility] Allergies: Jardiance [empagliflozin], Codeine, Hay fever [pollen], Heparin, Hydrocodone, Morphine and related,and Tetanus toxoid Current Outpatient Medications Medication Sig Dispense Refill docusate sodium (STOOL SOFTENER) 100 MG Capsule Take 100 mg by mouth 2 times a day as needed for Constipation. ONETOUCH DELICA LANCETS 33G MISC Check blood sugars 3-4 times daily 180 Each 5 oxygen GAS 2 LPM bled through CPAP 11 cwp during all periods of sleep and 2 LPM via NC with exertion. ACCU-CHEK SOFTCLIX LANCETS MISC Test blood sugar [...] to test BG values 1 Kit 0 clobetasol propionate (TEMOVATE) 0.05 % cream Apply to rash on the hands and dorsal feet twice daily x 1 week, then as needed for flares. (Patient not taking: Reported on 01/07/2022 ) 30 g 1 Magnesium Oxide 400 (241.3 Mg) MG Oral Tablet Take 400 mg by mouth daily. (Patient not taking: Reported on 12/31/2021 ) 90 Tab 0 Acetaminophen 500 MG Oral Tablet (Acetaminophen Extra Strength) Take 500 mg by mouth every 6 hours as needed. Meclizine HCl 12.5 MG Oral Tablet (Antivert) Take 1 Tab by mouth 3 times a day as needed for Dizziness. 30 Tab 1 Colchicine 0.6 MG Oral Tablet Take 1/2 tab daily (Patient not taking: Reported on 02/03/2022 ) 45 Tab 1 Nerve Pain Relief Sublingual Tablet Sublingual Place under the tongue. Indications: pt taking Nervive, nerve relief tablets at bedtime CPAP every night at bedtime. metOLazone 2.5 MG Oral Tablet (Zaroxolyn) Take 2.5 mg by mouth daily as needed. Do not take unless instructed by provider Potassium Chloride Ayleen ER 10 MEQ Oral Tablet Extended Release Take 10 mEq by mouth every otherday. Cholecalciferol 125 MCG (5000 UT) Oral Capsule Take 1,000 Units by mouth daily. Lidocaine 4 % External Patch ( Lidocaine Patch) Place topically on the skin 1 Patch daily . (Patient not taking: Reported on 02/11/2022 ) BD Pen Needle Short U/F 31G X 8 MM (Insulin Pen Needle) use five times daily 500 Each 3 Furosemide 40 MG Oral Tablet (Lasix) Take by mouth 0.5 Tablets in the morning AND 0.5 Tablets before bedtime. May take an additional 20 mg 2 to 3 days per week as needed for worsening swelling. 135 Tablet 0 OneTouch Ultra Blue In Vitro Strip (Glucose Blood) Check sugars 3-4 times daily, E11.9 400 Strip 3 traZODone HCl 50 MG Oral Tablet (Desyrel) Take by mouth 1 Tablet before bedtime. 90 Tablet 0 Nortriptyline HCl 50 MG Oral Capsule (Pamelor) Take by mouth 1 Capsule before bedtime. 100 Capsule 1 rOPINIRole HCl 2 MG Oral Tablet (Requip) Take by mouth 1 Tablet before bedtime. 100 Tablet 1 Cyclobenzaprine HCl 10 MG Oral Tablet (Flexeril) [...] Units in the morning. 45 mL 3 traMADol HCl 50 MG Oral Tablet (Ultram) Take by mouth 1 Tablet every 8 hours as needed for Pain, Severe. 90 Tablet 0 Apixaban 5 MG Oral Tablet (Eliquis) Take by mouth 1 Tablet in the morning AND 1 Tablet before bedtime. 10mg twice a day x 7 days then 5mg twice a day . 180 Tablet 3 Gabapentin 300 MG Oral Capsule (Neurontin) Take by mouth 1 Capsule in the morning AND 1 Capsulebefore bedtime. 200 Capsule 3 clonazePAM 0.5 MG Oral Tablet (KlonoPIN) Take by mouth 1 Tablet in the morning AND 1 Tablet before bedtime. 60 Tablet 0 DULoxetine HCl 30 MG Oral Capsule Delayed [...] total 90 mg daily.. 100 Capsule 1 Current Facility-Administered Medications Medication Dose Route Frequency Provider Last Rate Last Admin Albuterol Sulfate (Proventil) (2.5 MG/3ML) 0.083% inhalation solution 2.5 mg 2.5 mg Nebulizer Q4H PRN TATIANA Negrete SOCIAL HISTORY Current residence: 3 years, heating is electric. No basement. Lives in an apartment. No recent remodleing. 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 Travel: none Pets: cats Alcohol consumption: Alcohol History: rare Exercise: Minimal exercise at [employer] [address] FAMILY HISTORY: Family History Problem Relation Age of Onset Cancer Mother liver - age 45 Cancer Father lung - age 74 (smoker) Heart Disorder Brother age 45 - possible tumor COPD Brother Diabetes Grandmother (Paternal) Cancer Grandfather (Paternal) bone ca - in 70's SYSTEMS REVIEW: REVIEW OF SYSTEMS CONSTITUTIONAL ROS: +change in weight, +weakness, +fatigue and No fevers, sweats, or chills EYE ROS: No recent significant change in vision, No eye pain, redness, discharge, No diplopia, No h/o cataracts and No h/o glaucoma EAR ROS: No ear pain, No drainage, No tinnitus or vertigo and No recent change in hearing NOSE/THROAT ROS: No history of frequent colds or sinusitis, No nasal stuffiness, No history of Hay Fever and No significant epistaxis MOUTH ROS: No bleeding gums, No thrush or No sore throat NECK ROS: No lumps or masses, No swollen glands, No recent swelling in thyroid area, No significantpain in neck and No h/o goiter or thyroid disease PULMONARY ROS: see HPI CARDIOVASCULAR ROS: No chest pain, +orthopnea, No paroxysmal nocturnal dyspnea, +edema, No palpitations and No syncope GASTROINTESTINAL ROS: No abdominal pain, No change in bowel habits, No significant heartburn, No significant change in appetite, No nausea, vomiting, diarrhea, or constipation, No hematemesis, No blood in stools or black tarry stools, No abdominal bloating or early satiety and No dysphagia HEMATOLOGIC/LYMPHATIC ROS:+on blood thinners for recurrent VTE. No coagulation disorder, No anemia,No abnormal bleeding, No chills, No bruising, No HIV risk factors, No night sweats, No swollen nodes, No weight loss and No history of transfusion MSK/EXTREMITIES ROS: No pain, redness or swelling on the joints SKIN/INTEGUMENTARY ROS: No edema, No rash and No itching NEUROLOGICAL ROS: Normal balance, No headaches, No seizures and No weakness PSYCHIATRIC ROS: No depression, No anxiety and No psychosis ALLERGY/IMMUNOLOGIC ROS: +allergic triggers, +sneeze, nasal itch, ocular symptoms of allergy, No reactions to insect sting, No chemical sensitivities and No Food Allergies PHYSICAL EXAM: BP 128/80 | Pulse 118 | Temp 36.3 C (97.3 F) (Tympanic) | Resp 20 | Ht 1.626 m (5' 4") | Wt (!)151.5 kg (334 lb 1.3 oz) | LMP 03/11/2003 | SpO2 89% Comment: O2 3LPM on demand, amb | BMI 57.34 kg/m | BSA 2.62 m GEN: Morbidly obese middle-aged female, appears older than stated age, no acute distress, speaking in complete sentences HEENT: eyes perrla, trachea midline, short thick neck non-boggy nasal turbinates and no nasal drainage. CHEST: no respiratory distress, no retractions, or abdominal breathing. Lungs with decreased breathsounds bilaterally No egophony, ribs nontender to palpation. CVS: S1,S2 normal, regular rate and rhythm, no murmurs, rubs or gallops ABD: soft, nontender, protuberances large pannus, +BS, no organomegaly EXT: 1+ pitting edema right greater than left edema in lower extremities bilaterally, posterior tibial and radial pulses 2+ bilaterally, no clubbing in fingers or toes. SKIN: Warm, dry, mild right lower extremity erythema, no excessive warmth, no drainage Neuro: alert, oriented to person, place and time. Rest of exam nonfocal, GCS 15. OTHER: rest of exam unremarkable DATA 6 minutes walk test from 08/2019. Patient walked 287 m. Low SpO2 room air was 85%. Patient required2 L nasal cannula exertion for SpO2 89% or higher. PFT from 08/2019 per my interpretation spirometry is normal. There is no significant bronchodilatorresponse. Lung volumes are normal. DLCO uncorrected for hemoglobin is normal. Flow loop is obstructive. There is no prior PFT to compare. CT chest without contrast from 08/2020 per my interpretation: There is diffuse mosaicism and ground-glass opacities. There is some scattered subpleural reticulation. There is some peribronchial cuffing. No effusion. No pneumothorax. Shotty mediastinal adenopathy. There is coronary artery and aortic calcifications. Evidence of hepatic steatosis. Patient is status post cholecystectomy. Chest x-ray from 11/2021 per my interpretation trachea midline, there is increased interstitial markings bilaterally. There is no pleural effusion. There is no pneumothorax. Overall appears similar dating back to chest x-ray from 2018. Echo from 04/2019: EF 60 65%, grade 1 diastolic dysfunction, RV size and function normal. Atrium normal size. No significant valvular pathology. No evidence of PH. LE duplex 11/2021: Right common femoral vein has phasic flow, is compressible and echolucent Right femoral vein has phasic flow, is compressible and echolucent Right popliteal vein has continuous flow, is non-compressible and echogenic Right posterior tibial vein is not visualized. Right peroneal vein is not visualized. CONCLUSIONS: Acute deep venous thrombosis in the right lower extremity in the segments as noted above. Other: MMRC Dyspnea Scale = 4 (I am too breathless to leave the house or I am breathless when dressing) Interm History/Respiratory Symptoms Cough: occasional "allergy cough", typically clear Hemoptysis: no Sinus Symptoms: drainage Hospitalizations: no ED Trips: 12/25/21 [facility], back injury Triggers: hot/humid weather Nocturnal: no problems CPAP/BiPAP/O2: CPAP every night, O2 2 LPM at night and at rest, 3LPM with exertion Flu Vaccine: 2020 Pneumovax: 2009 Prevnar: unsure COVID 19: 12/18/20, 12/29/20 Assessment: 1. Chronic hypoxic respiratory failure appears to require 2 L at rest 3 L with exertion. Patient states that she would like to see if she can qualify for a portable oxygen concentrator 2. Shortness of breath multifactorial secondary to morbid obesity, small airways disease, chronic heart failure preserved EF, deconditioning, possible interstitial lung disease 3. Small airways disease patient was smoking history that without emphysema or evidence of a complete COPD on PFTs. Does have mosaicism which is more likely due to air trapping along with peribronchial cuffing. 4. Possible interstitial lung disease Less likely this represents possible interstitial lung disease though she is at risk for post infectious I LD secondary to her remote severe pneumonia. Less likely to represent IPF or NSIP or chronic HP 5. Chronic heart failure preserved EF, mildly hypervolemic on exam 6. Morbid obesity with BMI 57.34 7. Recurrent VTE without evidence of PH on most recent echo 8. History is severe pneumonia requiring intubation, tracheostomy complicated by pulmonary embolus remotely 9. Allergic rhinitis 10. History tobacco. Quit 1996. Between 10 and 20 pack years total. Recommendations and Plans: -get CT chest -get portable oxygen concentrator testing on 2 L nasal cannula and titrate -get 6 minutes walk on room air prior to next visit -start Astelin -start Advair 115 HFA and p.r.n. albuterol -inhaler technique teaching done today. -continue CPAP with all sleep -oxygen supplementation as above -continue diuretics -weight management counseling done today. -continue Eliquis. Due to recurrent VTE she will need to be on lifelong anticoagulation. Bleeding precautions discussed with the patient. -follow-up in 6 months, in person, sooner needed -All the patient's questions concerns were addressed to her apparent satisfaction I spent more than 50% of the 40 minute visit counseling and coordinating care. Nikita Sanchez MD Pulmonary Medicine, [address] [place] [address] documented in this encounter Nursing Notes * Sade Lozada LPN - 02/18/2022 1:54 PM EDT New pt referred for evaluation of small airways disease, chronic hypoxic resp failure, and ELISSA. MMRC Dyspnea Scale = 4 (I am too breathless to leave the house or I am breathless when dressing) Interm History/Respiratory Symptoms Cough: occasional "allergy cough", typically clear Hemoptysis: no Sinus Symptoms: drainage Hospitalizations: no ED Trips: 12/25/21 [facility], back injury Triggers: hot/humid weather Nocturnal: no problems CPAP/BiPAP/O2: CPAP every night, O2 2 LPM at night and at rest, 3LPM with exertion Flu Vaccine: 2020 Pneumovax: 2008 Prevnar: unsure COVID 19: 12/18/20, 12/29/20 documented in this encounter Plan of Treatment Upcoming Encounters Date Type Specialty Care Team Description 02/23/2022 Home Visit [facility] Vera Capellan RN [address] [place] [address] 03/03/2022 Hospital Encounter Surgery Raj Ahn, [address] [place] [address] 03/03/2022 Surgery Surgery Raj Ahn, [address] [place] [address] INJECTION SACROILIAC JOINT 03/08/2022 Imaging Radiology 03/12/2022 Office Visit Family Medicine Galdino Andujar DO [address] [place] [address] 03/15/2022 Telemedicine [facility], [facility] [address] [place] [address] 04/05/2022 Office Visit Cardiology Marjorie Powell PA-C [address] [facility] [place] [address] 04/14/2022 Nurse Only Ancillary [place], Nurse Annual Wellness Visit [address] [facility], [place] [address] 07/28/2022 Imaging Radiology 07/28/2022 PulmDiagnostic Pulmonary Function [place], Pft [address] [facility] [place] [address] 08/25/2022 Office Visit Pulmonary Nikita Sanchez MD [address] [id number] Scheduled Orders Name Type Priority Associated Diagnoses Orde r Schedule SPIROMETRY B/A BRONCHODILATOR Procedures Routine ILD (interstitial lung disease) (HCC) Small airways disease Expected: 02/19/2022, Expires: 03/21/2023 PULMONARY STRESS TESTING Procedures Routine Chronic hypoxemic respiratory failure (HCC) ILD (interstitial lung disease) (HCC) SOB (shortness of breath) Small airways disease Expected: 02/19/2022, Expires: 03/21/2023 LUNG VOLUMES (PLETHYSMOGRAPHY) Procedures Routine ILD (interstitial lung disease) (HCC) Small airways disease Expected: 02/19/2022, Expires: 03/21/2023 DIFFUSION CAPACITY (DLCO) Procedures Routine ILD (interstitial lung disease) (HCC) Small airways disease Expected: 02/19/2022, Expires: 03/21/2023 CT CHEST WO CONTRAST Medical Imaging Routine ILD (interstitial lung disease) (HCC) Expected: 05/21/2022, Expires: 03/21/2023 PULSE OX W/ REST/EXERCISE, MULTIPLE (OP) Procedures Routine Chronic hypoxemic respiratory failure (HCC) Chronic diastolic congestive heart failure (HCC) ILD (interstitial lung disease) (HCC) Small airways disease Expected: 08/21/2022 (Approximate), Expires: 03/21/2023 Scheduled Procedures Name Priority Associated Diagnoses Date/Ti [...] Additional history exists CKD GFR USE SMARTSET 31454 07/09/202201/07, 12/26/2021, 12/07/2021, Additional history exists DIABETES-HGBA1C EVERY 6 MONTHS 07/09/2022 01/07/2022, 11/17/2020, 01/23/2020, Additional history exists BASIC METABOLIC PANEL (BMP) FOR HTN YEARLY 01/07/2023 01/07/2022, 12/26/2021, 12/07/2021, Additional history exists CKD HGB USE SMARTSET 19120 01/07/202301/07, 01/07/2022, 12/26/2021, Additional history exists CKD PHOS USE SMARTSET 82171 01/07/2023 04/12/2021, 03/12/2021, 11/17/2020, Additional history exists [...] of this encounter Visit Diagnoses Diagnosis Chronic hypoxemic respiratory failure (HCC)- Primary Chronic respiratory failure SOB (shortness of breath) Shortness of breath Small airways disease Other diseases of lung, not elsewhere classified ILD (interstitial lung disease) (HCC) Postinflammatory pulmonary fibrosis Chronic diastolic congestive heart failure (HCC) Chronic diastolic heart failure Morbid obesity with BMI of 50.0-59.9, adult (HCC) Morbid obesity Acute deep vein thrombosis (DVT) of proximal vein of right lower extremity (HCC) History of pulmonary embolus (PE) Personal history of pulmonary embolism Inflammation of sacroiliac joint (HCC) Sacroiliitis, not elsewhere classified documented in this encounter Advance Directives Documents on File Type Date Recorded Patient Loading Unit Operator Seating Expl anation Advanced Directive Advanced Directive Advanced [...] Camp Other Health Care Hayden r of Still Worker Helper Princess Allen Other Health Care Pow er of Still Worker Helper Care Teams Kennel Technician Relationship Specialty Start Date End Date Galdino Andujar, DO [address] [place] [address] PCP - General Internal Medicine 01/07/22 documented as of this encounter
--- OUTSIDE RECORDS SUMMARY | 2023-06-01 04:38 | External Medical Summary | Summary of Care ---
Author Name Unknown Organization [place] [address] Care Team Providers Care Printmaker Name Role Phone Galdino Adnujar DO Primary Care Provider [phone] Reason for Visit * Reason Onset Date Comments Other 03/05/2022 Encounter Details Date Type Department Care Team Description 03/05/2022 Telephone HEALTH & WELLNESS Kierra Woods, Health Quality Control Chemist Other Allergies Active Allergy Reactions Severity Noted Date Comments Codeine 07/08/2014 hallucination Pollen 05/18/2019 Heparin 09/04/2009 Heparin Induced Thrombocytopenia Hydrocodone Neuro complications (Please comment) 07/28/2020 Empagliflozin Other (Please comment) Medium 05/17/2018 3 yeast infections in 6 weeks after starting Morphine And Related 09/16/1997 Hallucinations Tetanus Toxoid Other (Please comment) 06/15/2011 Passed out documented as of this encounter (statuses as of 03/05/2022) Medications Medication Sig Dispensed Refills Start Date [...] 90 Cap 3 12/18/2019 Active DIURETIC TITRATION PLANIndications:Internet Sales Director 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 1 Each 0 04/08/2020 Active Blood Glucose Monitoring Suppl (Lab21 ULTRA 2) w/Device KIT Use to test [...] 0 Active Lidocaine 4 % External Patch ( Lidocaine [...] 7.0%-8.0% (FORMER[facility]) Inject under the skin 60 Units in [...] % Nasal Solution Administer into nostril 1 [place] in the morning AND 1 [place] before bedtime. 30 mL 12 02/18/2022 Active Hospital, Clinic, or Other Facility Administered Medication Ordered Dose Route Frequency Start Date End Date Status Albuterol Sulfate (Proventil) (2.5 MG/3ML) 0.083% inhalation solution 2.5 mgIndications:Chronic hypoxemic respiratory failure (HCC) 2.5 mg NEBULIZER Q4H PRN 10/08/2021 Active documented as of this encounter (statuses as of 03/05/2022) Active Problems Problem Noted Date Encounter for [...] as of this encounter (statuses as of 03/05/2022) Resolved Problems Problem Noted Date Resolved Date [...] as of this encounter (statuses as of 03/05/2022) Immunizations Name Administration Dates Next Due COVID-19 mRNA, LNP-s, No Pre serve, 2-Dose Series ([employer]) 12/29/2020,12/18/2020 Pneumococcal Polysaccharide PPV23 (Pneumovax) 08/22/2009,06/15/2006 Seasonal [...] encounter Miscellaneous Notes * Telephone Encounter - Kierra Woods Health Quality Control Chemist - 03/05/2022 3:27 PM EDT Called and spoke with patient about her not being able to attend her one-on-one session this week. She scheduled for 03/12/22 at 1:00 p.m. documented in this encounter Plan of Treatment Upcoming Encounters Date Type Specialty Care Team Description 03/08/2022 Imaging Radiology 03/12/2022 Office Visit Family Medicine Galdino Andujar, [address] [facility] [place] [address] 03/15/[address] [facility], Pharmacist [address] [place] [address] 04/05/2022 Office Visit Cardiology Marjorie Powell PA-C [address] [facility] [place] [address] 04/14/2022 Nurse Only [employer], Nurse Annual Wellness Visit [address] [facility] [address] [facility] [place] [address] 07/28/2022 Imaging Radiology 07/28/2022 PulmDiagnostic [facility] [place], [address] [place] [address] 08/25/2022 Office Visit Pulmonary Nikita Sanchez MD [address] [place] [id number] Scheduled Procedures Name Priority Associated Diagnoses Date/Ti [...] Additional history exists CKD GFR USE SMARTSET 89546 07/09/202201/07, 12/26/2021, 12/07/2021, Additional history exists DIABETES-HGBA1C EVERY 6 MONTHS 07/09/2022 01/07/2022, 11/17/2020, 01/23/2020, Additional history exists BASIC METABOLIC PANEL (BMP) FOR HTN YEARLY 01/07/2023 01/07/2022, 12/26/2021, 12/07/2021, Additional history exists CKD HGB USE SMARTSET 07276 01/07/202301/07, 01/07/2022, 12/26/2021, Additional history exists CKD PHOS USE SMARTSET 15463 01/07/202312/25, 03/12/2021, 11/17/2020, Additional history exists DIABETES-FOOT [...] Documents on File Type Date Recorded Patient Flatware Maker Expl anation Advanced Directive Advanced Directive [...] Camp Other Health Care Hayden r of Websphere Process Server Developer [phone] ([place]) Princess Allen Other Health Care Pow er of Websphere Process Server Developer Care Teams Printmaker Relationship Specialty Start Date End Date Galdino Andujar, DO [address] [facility] [place] [address] PCP - General Internal Medicine 01/07/22 documented as of this encounter
--- OUTSIDE RECORDS SUMMARY | 2023-06-01 04:38 | External Medical Summary | Summary of Care ---
Author Name Unknown Organization [place] [address] Care Team Providers Care Patent Attorney Name Role Phone Galdino Andujar DO Primary Care Provider [phone] Reason for Visit * Reason Onset Date Comments Other 02/18/2022 Encounter Details Date Type Department Care Team Description 02/18/2022 Telephone HEALTH & WELLNESS Kierra Woods, Health Conveyor Worker Other Allergies Active Allergy Reactions Severity Noted [...] 90 Cap 3 12/18/2019 Active DIURETIC TITRATION PLANIndications:Inker 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 1 Each 0 04/08/2020 Active Blood Glucose Monitoring Suppl ([employer] ULTRA 2) w/Device KIT Use to test [...] of 7.0%-8.0% ([facility]) Inject under the skin 60 Units in [...] mg daily.. 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 She was agreeable and is scheduled for 02/26 at 9:00 a.m. documented in this encounter Plan of Treatment Upcoming Encounters Date Type Specialty Care Team Description 02/23/2022 Home Visit [facility] Vera Capellan RN [address] [place] [address] 03/03/2022 Hospital Encounter Surgery Raj Ahn DO [address] [place] [address] 03/03/2022 Surgery Surgery Raj Ahn DO [address] [place] [address] INJECTION SACROILIAC JOINT 03/08/2022 Imaging Radiology 03/12/2022 Office Visit Family Medicine Galdino Andujar, [address] [facility], [place] [address] 03/15/2022 Telemedicine [facility], Pharmacist [address] [facility] [address] [facility] [place] [address] 04/05/2022 Office Visit Cardiology Marjorie Powell PA-C [address] [place] [address] 04/14/2022 Nurse Only [facility], Nurse Annual Wellness Visit [address] [facility] [address] [facility] [address] Scheduled Procedures Name Priority Associated Diagnoses Date/Ti [...] Additional history exists CKD GFR USE SMARTSET 80309 07/09/202201/07, 12/26/2021, 12/07/2021, Additional history exists DIABETES-HGBA1C EVERY 6 MONTHS 07/09/2022 01/07/2022, 11/17/2020, 01/23/2020, Additional history exists BASIC METABOLIC PANEL (BMP) FOR HTN YEARLY 01/07/2023 01/07/2022, 12/26/2021, 12/07/2021, Additional history exists CKD HGB USE SMARTSET 12900 01/07/202301/07, 01/07/2022, 12/26/2021, Additional history exists CKD PHOS USE SMARTSET 79928 01/07/2023 04/12/2021, 03/12/2021, 11/17/2020, Additional history exists [...] Documents on File Type Date Recorded Patient Screen Room Operator Expl anation Advanced Directive Advanced Directive [...] [place] Other Health Care Hayden r of Life Insurance Sales Agent Princess Allen Other Health Care Pow er of Life Insurance Sales Agent Care Teams Patent Attorney Relationship Specialty Start Date End Date Galdino Andujar, DO [address] [facility] [place] [address] PCP - General Internal Medicine 01/07/22 documented as of this encounter
--- OUTSIDE RECORDS SUMMARY | 2023-06-01 04:38 | External Medical Summary | Summary of Care ---
Author Name Unknown Organization [place] [address] Care Team Providers Care Immigration Case Worker Name Role Phone Galdino Andujar DO Primary Care Provider [phone] Reason for Visit * Reason Comments Follow Up Encounter Details Date Type Department Care Team Description 03/12/2022 Office Visit Family Practice [address] [facility], [place] [address] [place] [phone] Galdino Andujar DO [address] [place] [address] 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, NYHA class 1 and CKD stage 3 ([facility])*; Type 2 diabetes mellitus with stage 3b chronic kidney disease, unspecified whether lead miner insulin use ([facility]); Recurrent deep vein thrombosis (DVT) of both lower extremities ([facility]); Chronic hypoxemic respiratory failure ([facility]); ELLIE (generalized anxiety disorder); Postsurgical hypothyroidism; History of pulmonary embolus (PE); Statin intolerance; Fibromyalgia; Gastroesophageal reflux disease with esophagitis without hemorrhage; Hyperparathyroidism, secondary renal (HCC); Atherosclerosis of [place] coronary artery of [place] heart without angina pectoris; Carotid artery stenosis, asymptomatic, right; Type 2 diabetes mellitus with stage 3b chronic kidney disease, with long-term current use of insulin ([facility]); Oberon filter in place; Dyslipidemia; ELISSA (obstructive sleep apnea); Anxiety state; Chronic pain syndrome; Need for Streptococcus pneumoniae vaccination Allergies Active Allergy Reactions Severity Noted Date [...] 0 04/08/2020 Active Blood Glucose Monitoring Suppl (CytomX TherapeuticsTOUCH ULTRA 2) w/Device KIT Use to test BG values 1 Kit 0 05/20/2020 Active clobetasol propionate (TEMOVATE) 0.05 % creamIndications:Kalee cintron Apply to rash on the hands and [...] 1 12/29/2020 Active Colchicine 0.6 MG Oral TabletIndications:L eukocytoclastic [...] Pain, Mild. For abdominal pain. 450 Tablet 11/03/2021 Active NovoLOG FlexPen 100 UNIT/ML Subcutaneous Solution Pen-injector (insulin aspart)Indications: Type 2 diabetes mellitus with hemoglobin A1c goal of 7.0%-8.0% (HCC) Inject 40 units with meals + sliding scale 1 units for every 25 units BG > 150. 121 mL 11/04/2021 Active Tresiba FlexTouch 100 UNIT/ML Subcutaneous Solution Pen-injector (Insulin Degludec)Indication s:Type 2 diabetes mellitus with hemoglobin A1c goal of 7.0%-8.0% (HCC) Inject under the skin 60 Units in the morning. 45 mL 11/04/2021 Active Apixaban 5 MG Oral Tablet (Eliquis) Take by mouth 1 Tablet in the morning AND 1 Tablet before bedtime. 10mg twice a day x 7 days then 5mg twice a day . 180 Tablet 01/13/2022 Active Gabapentin 300 MG Oral Capsule (Neurontin) Take by mouth 1 Capsule in the morning AND 1 Capsule before bedtime. 200 Capsule 01/19/2022 Active DULoxetine HCl 30 MG Oral [...] or Wheezing. 18 g 3 02/18/2022 Active Fluticasone-Salmete rol 115-21 MCG/ACT Inhalation Aerosol (Advair HFA) Inhale by mouth 2 Puffs in the morning AND 2 Puffs before bedtime. 12 g 12 02/18/2022 Active Azelastine HCl 0.1 % Nasal Solution Administer into nostril 1 Chester in the morning AND 1 Chester before bedtime. 30 mL 12 02/18/2022 Active clonazePAM 0.5 MG Oral Tablet (KlonoPIN)Tramo ns:Anxiety state Take by mouth 1 Tablet in the morning AND 1 Tablet before bedtime. 60 Tablet 0 03/12/2022 Active traMADol HCl 50 MG Oral Tablet (Ultram)Indications :Chronic pain syndrome Take by mouth 1 Tablet every 8 hours as needed for Pain, Severe. 90 Tablet 0 03/12/2022 Active traMADol HCl 50 MG Oral Tablet (Ultram)Indications :Chronic pain syndrome Take by mouth 1 Tablet every 8 hours as needed for Pain, Severe. 90 Tablet 0 12/31/2021 03/12/20 22 Discontinu ed(Refill) clonazePAM 0.5 MG Oral Tablet (KlonoPIN)Macrinatio ns:Anxiety state Take by mouth 1 Tablet in the morning AND 1 Tablet before bedtime. 60 Tablet 0 02/08/2022 03/12/20 22 Discontinu ed(Refill) Hospital, Clinic, or Other [...] 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/31/2021 Atherosclerosis of [place] coronary arter y without angina pectoris 12/31/2021 [...] 03/25/2016 Fibromyalgia 02/02/2016 Abnormality of gait 02/02/[address] 08/19/2014 History of pulmonary [...] (Pfizer) 12/29/2020,12/18/2020 Pneumococcal Conjugate Vacci ne, 20-valent ([id number]) 03/12/2022 Pneumococcal Polysaccharide PPV23 (Pneumovax) 08/22/2009,06/15/2006 Seasonal [...] Sign Reading Time Taken Comments Blood Pressure 116/64 03/12/2022 2:46 PM EDT Pulse 88 03/12/2022 2:46 PM EDT Temperature 36.1 C (96.9 F) 03/12/2022 2:46 PM ED T Respiratory Rate 12 03/12/2022 2:46 PM EDT Oxygen Saturation 98% 03/12/2022 2:46 PM EDT Inhaled Oxygen Concentration - - Weight 148.2 kg (326 lb 11.2 oz) 03/12/2022 2:46 PM EDT Height 167.6 cm (5' 6") 03/12/2022 2:46 PM EDT Body Mass Index 52.73 03/12/2022 2:46 PM EDT documented in this encounter Progress Notes * Mariam Ray RN - 03/12/2022 3:21 PM EDT prevnar 20 administered as ordered by provider. Immunization information paper given to patient. Pt was verified by name and date of . Pt states having no previous reactions to vaccines in the past. Pt is not allergic to latex. Pt verbalizes understanding of importance of vaccine. Pt tolerated vaccination administration well. No further questions or concerns were voiced. * Galdino Andujar DO - 03/12/2022 3:15 PM EDT SUBJECTIVE: Stephanie Camp is a 66 year old female. Chief Complaint Patient presents with Follow Up HPI: Patient is a 66 year old female with a history of DM type II, CKD stage III, Diastolic CHF, chronichypoxic respiratory failure, HTN, Recurrent DVT, IVC filter, Hyperlipidemia with statin intolerance, GERD, Lumbar Disc Disease, restless leg syndrome, Sleep Apnea on CPAP, Heparin Induced Thrombocytopenia, and ambulatory dysfunction that is seen for follow up. Weight is down an additional 8 pounds.No chest pain is present. No shortness of breath when wearing oxygen. Patient wears oxygen at all times. Patient Active Problem List Diagnosis Code Dyslipidemia [...] diabetes mellitus with diabetic chronic kidney disease ([facility]) E11.22 Heparin induced thrombocytopenia (HIT) ([facility]) D75.82 Atherosclerosis of [place] coronary artery without angina pectoris I25.10 Carotid [...] Chronic hypoxemic respiratory failure ([facility]) J96.11 Current Outpatient Medications Medication Sig [...] 90 Cap 3 Blood Glucose Monitoring Suppl (CytomX TherapeuticsTOUCH ULTRA 2) w/Device KIT Use to test BG values 1 Kit 0 clobetasol propionate (TEMOVATE) 0.05 % cream Apply to rash on the hands and dorsal feet twice daily x 1 week, then as needed for flares. 30 g 1 Magnesium Oxide 400 (241.3 Mg) MG Oral Tablet Take 400 mg by mouth daily. 90 Tab 0 Acetaminophen 500 MG Oral [...] of Breath or Wheezing. 18 g 3 Fluticasone-Salmeterol 115-21 MCG/ACT Inhalation Aerosol (Advair HFA) Inhale by mouth 2 Puffs in the morning AND 2 Puffs before bedtime. 12 g 12 Azelastine HCl 0.1 % Nasal Solution Administer into nostril 1 Chester in the morning AND 1 Chester before bedtime. 30 mL 12 clonazePAM 0.5 MG Oral Tablet (KlonoPIN) Take by mouth 1 Tablet in the morning AND 1 Tablet before bedtime. 60 Tablet 0 traMADol HCl 50 MG Oral Tablet (Ultram) Take by mouth 1 Tablet every 8 hours as needed for Pain, Severe. 90 Tablet 0 DIURETIC TITRATION PLAN If no improvement on day 3, contact heart failure managing provider. 1 Each 0 Colchicine 0.6 MG Oral Tablet Take 1/2 tab daily (Patient not taking: Reported on 02/03/2022 ) 45 Tab 1 Lidocaine 4 % External Patch (HM Lidocaine Patch) Place topically on the skin 1 Patch daily . (Patient not taking: Reported on 02/11/2022 ) Current Facility-Administered Medications Medication Dose Route Frequency Provider Last Rate Last Admin Albuterol Sulfate (Proventil) (2.5 MG/3ML) 0.083% inhalation solution 2.5 mg 2.5 mg Nebulizer Q4H PRN TATIANA Negrete The patient's medication list was reviewed and updated as needed. Past Medical History: Diagnosis Date ELSIE (acute kidney injury) ([facility]) 06/12/2018 Allergic rhinitis due to other allergen Chronic hypoxemic respiratory failure ([facility]) 01/07/2022 Diverticulosis of colon 01/28/2006 Essential hypertension with goal blood pressure less than 140/90 02/22/2014 ELLIE (generalized anxiety disorder) 09/13/2009 Goiter [address] filter in place 08/19/2014 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[facility]) 08/22/2009 History of pulmonary embolus (PE) 07/16/2014 HTN, goal below 140/90 Impetigo 09/27/2018 Obesity, BMI not known Perforation of intestine ([facility]) 1996 COLON -- 1996 Pneumonia in aspergillosis(484.6) 09/14/2009 Recurrent deep vein thrombosis (DVT) of both lower extremities ([facility]) 01/07/2022 Sleep apnea, obstructive Spinal stenosis of lumbar region without neurogenic claudication 07/15/2020 Spontaneous pneumothorax 09/14/2009 Statin intolerance 07/16/2014 Type 2 diabetes mellitus with hemoglobin A1c goal of less than 8.0% ([facility]) 01/07/2022 Past Surgical History: Procedure Laterality Date ARTHROPLASTY KNEE TOTAL Right 07/24/14 R COLONOSCOPY, DIAGNOSTIC (RECTUM) 02/18/2016 normal, repeat 10 yrs/[facility] COLONOSCOPY, GI REFERRAL OP 01/28/06 diverticulosis--repeat 10 years INCISION OF WINDP[place], PLANNED 06/03/2011 TRACHEOSTOMY PLANNED performed by DANNY HOLDER at OR [facility] INJECT DX/THER SUBSTANCE INTERLAMINAR LUMBAR/SACRAL W IMAGE GUIDE 05/26/2020 INJECTION SPINE LUMBAR OR SACRAL performed by Raj Ahn DO at OR [facility] INJECT DX/THER SUBSTANCE INTERLAMINAR LUMBAR/SACRAL W IMAGE GUIDE 05/14/2021 INJECTION SPINE LUMBAR OR SACRAL performed by Raj Ahn DO at OR [facility] INJECT DX/THER SUBSTANCE INTERLAMINAR LUMBAR/SACRAL W IMAGE GUIDE 08/13/2021 INJECTION SPINE LUMBAR OR SACRAL performed by Raj Ahn DO at OR [facility] KNEE ARTHROSCOPY/DEBRIDEMENT 07/[address] PERMANENT GASTROSTOMY TUBE 09/06/09 GASTROSTOMY WITH CONSTUCTION GASTRIC TUBE performed by AMADOU NUNEZ at [facility] REMOVAL OF THYROID GLAND 06/15/2011 THYROIDECTOMY INCLUDING SUBSTERNAL THYROID CERVICAL APPROACH performed by DANNY HOLDER at OR [facility] REMOVE GALLBLADDER 09/06/09 CHOLECYSTECTOMY performed by AMADOU NUNEZ at OR [facility] REPAIR RECURRENT INCISIONAL HERNIA 1998 REVISION OF COLOSTOMY, SIMPLE 1997 SACROILIAC JOINT INJECT W/GUIDANCE 07/28/2020 INJECTION SACROILIAC JOINT performed by Raj Ahn DO at OR [facility] SACROILIAC JOINT INJECT W/GUIDANCE 03/03/2022 INJECTION SACROILIAC JOINT performed by Raj Ahn DO at OR [facility] SUTURE, LARGE INTESTINE W/COLOSTOMY 1996 perforation R colon with colostomy VENA CAVA FILTER/LIGATION/CLIP 08/19/09 Frank filter placement through the right femoral 08/19/[address] Lerma at [facility] Review of patient's allergies indicates: Allergen Reactions [...] congestion, sore throat and trouble swallowing. Respiratory: Negative for cough, shortness of breath and wheezing. Cardiovascular: Positive for leg swelling. Negative for chest pain and palpitations. Gastrointestinal: Negative for abdominal pain, blood in stool, constipation, diarrhea, nausea and vomiting. Genitourinary: Negative for dysuria and hematuria. Musculoskeletal: Positive for back pain and gait problem. Neurological: Negative for dizziness, syncope and headaches. Psychiatric/Behavioral: Negative for confusion, decreased concentration and sleep disturbance. OBJECTIVE: BP 116/64 (BP Site: Left Arm, BP Position: Sitting, BP Cuff Size: Regular) Comment (BP Site): forearm | Pulse 88 | Temp 36.1 C (96.9 F) (Tympanic) | Resp 12 | Ht 1.676 m (5' 6") | Wt (!) 148.2 kg(326 lb 11.2 oz) | LMP 03/11/2003 | SpO2 98% | BMI 52.73 kg/m | BSA 2.63 m Physical Exam [...] Content: Thought content normal. Judgment: Judgment normal. PLAN AND ASSESSMENT: 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, NYHA class 1 and CKD stage 3 (HCC)(Primary) Continue Furosemide and Metolazone Type 2 diabetes mellitus with stage 3b chronic kidney disease, unspecified whether lead miner insulin use (HCC) Continue Trulicity, Tresiba, and Novolog Recurrent deep vein thrombosis (DVT) of both lower extremities (HCC) Continue Apixaban Chronic hypoxemic respiratory failure (HCC) Continue Oxygen ELLIE (generalized anxiety disorder) Continue Clonazepam and Duloxetine Postsurgical hypothyroidism Continue Levothyroxine History of pulmonary embolus (PE) Continue Apixaban Statin intolerance Fibromyalgia Continue Duloxetine, Gabapentin, and Nortriptyline Gastroesophageal reflux disease with esophagitis without hemorrhage Continue Omeprazole Hyperparathyroidism, secondary renal (HCC) Atherosclerosis of [place]-sp[place] coronary artery of [place]sp[place] heart without angina pectoris Carotid artery stenosis, asymptomatic, right Type 2 diabetes mellitus with stage 3b chronic kidney disease, with long-term current use of insulin (HCC) Oberon filter in place Dyslipidemia ELISSA (obstructive sleep apnea) Anxiety state - clonazePAM 0.5 MG Oral Tablet (KlonoPIN); Take by mouth 1 Tablet in the morning AND 1 Tablet before bedtime. Chronic pain syndrome - traMADol HCl 50 MG Oral Tablet (Ultram); Take by mouth 1 Tablet every 8 hours as needed for Pain,Severe. Need for Streptococcus pneumoniae vaccination - PNEUMOCOCCAL VACC, PCV20, IM ([id number]) Follow-up: Return in about 2 months (around 05/12/2022), or if symptoms worsen or fail to improve. |Check-out note: Schedule COVID vaccine Galdino Andujar DO 3:16 PM 03/12/2022 documented in this encounter Nursing Notes * Mariam Ray RN - 03/12/2022 2:45 PM EDT Pt is here for follow up visit. documented in this encounter Plan of Treatment Upcoming Encounters Date Type Specialty Care Team Description 03/15/[address] [facility], Pharmacist [address] [facility] [place] [address] [place] [address] 04/05/2022 Office Visit Cardiology Marjorie Powell PA-C [address] [place] [phone] 04/14/2022 Nurse Only [facility], Nurse Annual Wellness Visit [address] [facility] [place] [address] [place] [address] 05/12/2022 Office Visit [facility] Medicine Galdino Andujar DO [address] [facility], [place] [address] 07/28/2022 Imaging Radiology 07/28/2022 PulmDiagnostic [facility] [place], [place] [address] [place] [phone] 08/25/2022 Office Visit Pulmonary Nikita Sanchez MD [address] [place] [address] Scheduled Procedures Name Priority Associated Diagnoses Date/Ti me COLONOSCOPY FLEXIBLE PROXIMAL DIAGNOSTIC Recall Colon cancer screening Health Maintenance Due Date Last Done Comments Cologuard: Ages 45-75 2000 FOBT: Ages 45-75 2000 Sigmoidoscopy: Ages 45-75 2000 COVID-19 Vaccine (3 - Booster) 05/31/2021 12/29/2020, 12/18/2020 DIABETES-EYE EXAM 04/14/2022 04/14/2021, , 04/05/2019, Additional history exists CKD GFR USE SMARTSET 01978 07/09/202201/07, 12/26/2021, 12/07/2021, Additional history exists DIABETES-HGBA1C EVERY 6 MONTHS 07/09/2022 01/07/2022, 11/17/2020, 01/23/2020, Additional history exists BASIC METABOLIC PANEL (BMP) FOR HTN YEARLY 01/07/2023 01/07/2022, 12/26/2021, 12/07/2021, Additional history exists CKD HGB USE SMARTSET 30473 01/07/202301/07, 01/07/2022, 12/26/2021, Additional history exists CKD PHOS USE SMARTSET 94981 01/07/202312/25, 03/12/2021, 11/17/2020, Additional history exists DIABETES-FOOT [...] mellitus with stage 3b chronic kidney disease, unspecified whether penitentiary insulin use (HCC) Recurrent deep vein thrombosis (DVT) of both lower extremities (HCC) Chronic hypoxemic respiratory failure (HCC) Chronic respiratory failure ELLIE (generalized anxiety disorder) Generalized anxiety disorder Postsurgical hypothyroidism History of pulmonary embolus (PE) Personal history of pulmonary embolism Statin intolerance Other drug allergy Fibromyalgia Mylagia and myositis, unspecified Gastroesophageal reflux disease with esophagitis without hemorrhage Hyperparathyroidism, secondary renal (HCC) Secondary hyperparathyroidism (of renal origin) Atherosclerosis of [place] coronary artery of [place] heart without angina pectoris Carotid artery stenosis, asymptomatic, right Type 2 diabetes mellitus with stage 3b chronic kidney disease, with long-term current use of insulin (HCC) Oberon filter in place Other postprocedural status Dyslipidemia Other and unspecified hyperlipidemia ELISSA (obstructive sleep apnea) Obstructive sleep apnea (adult) (pediatric) Anxiety state Anxiety state, unspecified Chronic pain syndrome Need for Streptococcus pneumoniae vaccination Need for prophylactic vaccination against streptococcus pneumoniae (pneumococcus) documented in this encounter Advance Directives Documents on File Type Date Recorded Patient Attic Fans Mechanic Expl anation Advanced Directive Advanced Directive Advanced [...] Camp Other Health Care [place] r of Glue Jointer Operator Princess Staplesfany Other Health Care Pow er of Glue Jointer Operator Care Teams Immigration Case Worker Relationship Specialty Start Date End Date Galdino Andujar, DO [address] [place] [address] PCP - General Internal Medicine 01/07/22 documented as of this encounter
--- OUTSIDE RECORDS SUMMARY | 2023-06-01 04:39 | External Medical Summary | Summary of Care ---
Author Name Unknown Organization [place] [address] Care Team Providers Care Legal Director Name Role Phone Galdino Andujar DO Primary Care Provider [phone] Reason for Visit * Reason Comments Dosage Adjustment In Person (Anticoag Cl inic) Diabetes Follow-Up Encounter Details Date Type Department Care Team Description 02/10/2022 Office Visit Family Practice 65 [facility] [address] [place] [address] Elizabeth, Pharmacist [address] [address] Type 2 diabetes mellitus with hemoglobin A1c goal of 7.0%-8.0% ([facility])* Allergies Active Allergy Reactions Severity Noted Date Comments Codeine 07/08/2014 hallucination Pollen 05/18/2019 Heparin 09/04/2009 Heparin Induced Thrombocytopenia Hydrocodone Neuro complications (Please comment) 07/28/2020 Empagliflozin Other (Please comment) Medium 05/17/2018 3 yeast infections in 6 weeks after starting Morphine And Related 09/16/1997 Hallucinations Tetanus Toxoid Other (Please comment) 06/15/2011 Passed out documented as of this encounter (statuses as of 02/10/2022) Medications Medication Sig Dispensed Refills Start Date [...] 90 Cap 3 12/18/2019 Active DIURETIC TITRATION PLANIndications:School Psychologist Assistant 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 1 Each 0 04/08/2020 Active Blood Glucose Monitoring Suppl (FeeFighters ULTRA 2) w/Device KIT Use to test [...] taking Nervive, nerve relief tablets at bedtime Place under the tongue. Indications: pt taking Nervive, nerve relief tablets at bedtime 0 Active CPAP every night at bedtime. [...] times daily 500 Each 3 11/04/2021 Active DULoxetine HCl 30 MG Oral Capsule Delayed Release Particles (Cymbalta) TAKE ONE CAPSULE BY MOUTH ONE TIME DAILY. TAKE WITH 60 MG CAPSULE FOR A TOTAL OF 90 MG 90 Capsule 0 11/04/2021 Active Furosemide 40 MG Oral Tablet [...] before bedtime. 90 Tablet 0 11/04/2021 Active Levothyroxine Sodium 200 MCG Oral Tablet (Levoxyl)Indications :Postsurgical hypothyroidism TAKE ONE TABLET BY MOUTH IN THE MORNING AT LEAST 30 MINUTES PRIOR TO BREAKFAST OR OTHER MEDS 100 Tablet 0 11/04/2021 Active Nortriptyline HCl 50 [...] abdominal pain. 450 Tablet 3 11/03/2021 Active DULoxetine HCl 60 MG Oral Capsule Delayed Release Particles (Cymbalta)Indication s:Fibromyalgia,Moder ate episode of recurrent major depressive disorder (HCC),Primary osteoarthritis of both knees Take by mouth 1 Capsule in the morning. Along with 30 mg capsule to total 90 mg daily.. 100 Capsule 1 11/04/2021 Active NovoLOG FlexPen 100 UNIT/ML Subcutaneous Solution Pen-injector (insulin aspart)Indications:T ype 2 diabetes mellitus with hemoglobin A1c goal of 7.0%-8.0% ([facility]) Inject 40 units with meals + sliding scale 1 units for every 25 units BG > 150. 121 mL 3 11/04/2021 Active Tresiba FlexTouch 100 UNIT/ML Subcutaneous Solution Pen-injector (Insulin Degludec)Indications :Type 2 diabetes mellitus with hemoglobin A1c goal of 7.0%-8.0% ([facility]) Inject under the skin 60 [...] before bedtime. 60 Tablet 0 02/08/2022 Active Hospital, Clinic, or Other Facility Administered Medication Ordered Dose Route Frequency Start Date End Date Status Albuterol Sulfate (Proventil) (2.5 MG/3ML) 0.083% inhalation solution 2.5 mgIndications:Chronic hypoxemic respiratory failure (HCC) 2.5 mg NEBULIZER Q4H PRN 10/08/2021 Active documented as of this encounter (statuses as of 02/10/2022) Active Problems Problem Noted Date Encounter for [...] 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/31/2021 Atherosclerosis of [place] coronary arter y without angina pectoris [...] as of this encounter (statuses as of 02/10/2022) Resolved Problems Problem Noted Date Resolved Date [...] as of this encounter (statuses as of 02/10/2022) Immunizations Name Administration Dates Next Due COVID-19 mRNA, LNP-s, No Pre serve, 2-Dose Series (Kupoya) 12/29/2020,12/18/2020 Pneumococcal Polysaccharide PPV23 (Pneumovax) 08/22/2009,06/15/2006 Seasonal [...] of this encounter Progress Notes * Frances Coxcesar Duong, [facility] - 02/10/2022 10:14 AM EDT Medication Therapy Disease Management Clinic - Diabetes Management Progress Note Stephanie Capm, identified by name and date of , is a 66 year old female being seen for diabetes management/education. Patient presents for return diabetic visit. Establishing care at [facility]. DIABETES: Current diabetic medications: Novolog - 40 units with meals + SS 1:25 >150 Tresiba 60 units at bedtime Trulicity 4.5 mg weekly- Tuesday night/Tuesday mornings Medication Injection Site: Abdomen Medication intolerances: SGLT2s (yeast infections), metformin Lifestyle: Diet: reports sugars are higher on mornings after getting up with pain overnight Breakfast - coffee and toast or cereal, fruit (oranges), string cheese Lunch - some times forget to eat lunch Supper - [employer] dinners delivered. Meat + veggie + dessert. Pepper steak, mashed potatoes, peas and corn, fruit last night. Snack in evening - glass of milk with cookies Beverages: milk, water, coffee Activity: very limited lately with oxygen Glucose Review/SMBG: Readings per patient memory/recall: Patient is currently testing 3-4 times a day. Reports range 150-315. Forgot log book today. Hypoglycemia: Does your blood sugar go below [...] indicated BP Readings from Last 3 Encounters: 02/04/22 101/73 02/03/22 90/60 01/12/22 108/62 Blood pressure at goal: yes HYPERLIPIDEMIA: Patient is taking moderate or high intensity statin: No Current regimen: none - statin intolerance listed on problem list Goal statin intensity: high The ASCVD Risk score (Freddy JOHNS Jr., et al., 2013) failed to calculate for the following reasons: The patient has a prior ND or stroke diagnosis HEALTH MAINTENANCE REVIEW: Health Maintenance Due Topic Date Due Pneumococcal Vaccine: 65+ Years (2 - PCV) 08/22/2010 COVID-19 Vaccine (3 - Booster) 05/31/2021 BREAST CANCER SCREENING DISCUSSION YEARLY AGES 40-75 10/01/2021 ASSESSMENT & PLAN: ICD-10-CM 1. Type 2 diabetes mellitus with hemoglobin A1c goal of 7.0%-8.0% (HCC) E11.9 BG Readings Blood sugars not available. No BG log today, but per patient report still running high and A1c above goal. Will try for Dexcom sensor Medications Reviewed current regimen, patient is adherent to regimen. Reports she did much better on the pump, but had issues with getting insulin covered. Will try to work with [facility] to see if wecan bill a vial of insulin to her part B and then her medicaid. Diet, Exercise, Lifestyle No significant lifestyle changes since last visit. Discussed with patient. Meeting with fitness sales consultant at [facility] today. Patient is agreeable to SMBG 3-4 time(s) daily. Submitted to for Dexcom. Patient's phone doesn'tsupport Dexcom isael, so will also submit for publishing editor. Patient aware to contact clinic if any hypoglycemia before next visit. MEDICATION CHANGES: yes, see below; preferred pharmacy: [facility] Medications: Increase Novolog - 40 units with breakfast/lunch and 45 units with supper +SS 1:25 >150 Tresiba 60 units at bedtime Trulicity 4.5 mg weekly- Tuesday night/Tuesday mornings HEALTH MAINTENANCE INTERVENTIONS: Labs: Ordered & Scheduled: Lipid Panel with next visit Immunizations: patient reports up to date - will call [facility] to get record of PCV and COVID booster Foot Exam: Up to Date Eye Exam: Up to Date FOLLOW UP: Return to clinic in 4 weeks with PCP visit 03/12/2022 Frances Huerta [facility] Clinical Pharmacist - Field Advisor Medication Therapy Management Clinic 02/10/2022, 10:14 AM documented in this encounter Plan of Treatment Upcoming Encounters Date Type Specialty Care Team Description 02/11/2022 Office Visit Pain Management Raj Ahn DO [address] [place] [address] 02/11/2022 Imaging Radiology 02/18/2022 Office Visit Pulmonary Nikita Sanchez MD [address] [place] [address] 02/23/2022 [facility] Visit [facility] Vera Capellan RN [address] [place] [address] 03/08/2022 Imaging Radiology 03/12/2022 Office Visit Family Medicine Galdino Andujar DO [address] [place] [address] 04/05/2022 Office Visit Cardiology Marjorie Powell PA-C [address] [place] [address] 04/14/2022 Nurse Only Ancillary College, Nurse Annual Wellness Visit [facility] [address] [place] [address] Scheduled Procedures Name Priority Associated Diagnoses Date/Ti me COLONOSCOPY FLEXIBLE PROXIMAL DIAGNOSTIC Recall Colon cancer screening Health Maintenance Due Date Last Done Comments Cologuard: Ages 45-75 2000 FOBT: Ages 45-75 2000 Sigmoidoscopy: Ages 45-75 2000 Pneumococcal Vaccine: 65+ Years (2 - PCV) 08/22/2010 08/22/2009, 06/15/2006 COVID-19 Vaccine (3 - Booster) 05/31/2021 12/29/2020, 12/18/2020 BREAST CANCER SCREENING DISCUSSION YEARLY AGES 40-75 10/01/2021 10/01/2020, 07/10/2019, 06/23/2018, Additional history exists DIABETES-EYE EXAM 04/14/2022 04/14/2021, , 04/05/2019, Additional history exists CKD GFR USE SMARTSET 28063 07/09/202201/07, 12/26/2021, 12/07/2021, Additional history exists DIABETES-HGBA1C EVERY 6 MONTHS 07/09/2022 01/07/2022, 11/17/2020, 01/23/2020, Additional history exists BASIC METABOLIC PANEL (BMP) FOR HTN YEARLY 01/07/2023 01/07/2022, 12/26/2021, 12/07/2021, Additional history exists CKD HGB USE SMARTSET 80755 01/07/202301/07, 01/07/2022, 12/26/2021, Additional history exists CKD PHOS USE SMARTSET 70341 01/07/2023 04/12/2021, 03/12/2021, 11/17/2020, Additional history exists DIABETES-FOOT EXAM 01/07/2023 01/07/2022, 0 01/14/2021, 11/07/2019, Additional history exists DIABETES-URINE ALBUMIN/CREATININE EVERY 12 MONTHS 01/07/2023 01/07/2022, 05/24/2019, 05/01/2018, Additional history exists Depression Screening, Annual for Pts 12 and Over 01/07/2023 01/07/2022, 06/12/2018 TSH FOR THYROID MEDICATION MONITORING YEARLY 01/07/2023 01/07/2022, 12/25/2020, 05/06/2020, Additional history exists Colonoscopy: Ages 45-75 02/17/2026 [...] Documents on File Type Date Recorded Patient In Flight Refueling Operator Expl anation Advanced Directive Advanced Directive [...] Camp Other Health Care Hayden r of Belt Polisher Princess Allen Other Health Care Pow er of Belt Polisher Care Teams Legal Director Relationship Specialty Start Date End Date Galdino Andujar, DO [address] [place] [address] PCP - General Internal Medicine 01/07/22 documented as of this encounter
--- OUTSIDE RECORDS SUMMARY | 2023-06-01 04:39 | External Medical Summary | Summary of Care ---
Author Name Unknown Organization [place] [address] Care Team Providers Care Fish Hatchery Worker Name Role Phone Lexii Andujar DO Primary Care Provider [phone] Reason for Visit * Reason Onset Date Comments Medication Refill 02/18/2022 Encounter Details Date Type Department Care Team Description 02/18/2022 Refill Family [facility] [address] [place] [address] Kevin Whiteside DO [address] [place] [address] POSTSURGICAL HYPOTHYROID; Fibromyalgia; Moderate episode of recurrent major depressive disorder (HCC); Primary osteoarthritis of both knees Allergies Active Allergy Reactions Severity Noted Date [...] 0 04/08/2020 Active Blood Glucose Monitoring Suppl (Doodle Mobile ULTRA 2) w/Device KIT Use to test [...] 7.0%-8.0% ([facility]) Inject under the skin 60 [...] 01/19/2022 Active clonazePAM 0.5 MG Oral Tablet (KlonoPIN)Indicatio [...] mg daily.. 100 Capsule 1 02/18/2022 Active DULoxetine HCl 30 MG Oral Capsule Delayed Release Particles (Cymbalta) TAKE ONE CAPSULE BY MOUTH ONE TIME DAILY. TAKE WITH 60 MG CAPSULE FOR A TOTAL OF 90 MG 90 Capsule 0 11/04/2021 02/19/20 22 Discontinu ed(Refill) Levothyroxine Sodium 200 MCG Oral Tablet (Levoxyl)Indication s:Postsurgical hypothyroidism TAKE ONE TABLET BY MOUTH IN THE MORNING AT LEAST 30 MINUTES PRIOR TO BREAKFAST OR OTHER MEDS 100 Tablet 0 11/04/2021 02/19/20 22 Discontinu ed(Refill) DULoxetine HCl 60 MG Oral Capsule Delayed Release Particles (Cymbalta)Indicatio ns:Fibromyalgia,Mod erate episode of recurrent major depressive disorder (HCC),Primary osteoarthritis of both knees Take by mouth 1 Capsule in the morning. Along with 30 mg capsule to total 90 mg daily.. 100 Capsule 1 11/04/2021 02/19/20 22 Discontinu ed(Refill) Hospital, Clinic, or Other [...] (HIT) 0 12/31/2021 Atherosclerosis of [place] coronary arter y without angina pectoris 12/31/2021 [...] 03/25/2016 Fibromyalgia 02/02/2016 Abnormality of gait 02/02/[address] [place] [address] 08/19/2014 History of pulmonary [...] mRNA, LNP-s, No Pre serve, 2-Dose Series (Bloggerce) 12/29/2020,12/18/2020 Pneumococcal Polysaccharide PPV23 (Pneumovax) 08/22/2009,06/15/2006 Seasonal [...] Telephone Encounter - Lexii Andujar DO - 02/18/2022 1:59 PM EDT Signed Prescriptions: Disp Refills DULoxetine HCl 30 MG Oral Capsule Delayed *100 Ca*0 Sig: TAKE ONE CAPSULE BY MOUTH ONE TIME DAILY. TAKE WITH 60 MG CAPSULE FOR A TOTAL OF 90 MGAuthorizing Provider:LEXII ANDUJAR Levothyroxine Sodium 200 MCG Oral Tablet (*100 Ta*0 Sig: TAKE ONE TABLET BY MOUTH IN THE MORNING AT LEAST 30 MINUTES PRIOR TO BREAKFAST OR OTHER MEDSAuthorizing Provider:LEXII ANDUJAR DULoxetine HCl 60 MG Oral Capsule Delayed *100 Ca*1 Sig: Take by mouth 1 Capsule inthe morning. Along with 30 mg capsule to total 90 mg daily..Authorizing Provider: LEXII ANDUJAR--- * Telephone Encounter - Frances Ceballos LPN - 02/18/2022 8:44 AM EDT Pending Prescriptions: Disp Refills DULoxetine HCl 30 MG Oral Capsule Delayed*90 Cap*0 Sig: TAKE ONE CAPSULE BY MOUTH ONE TIME DAILY. TAKE WITH 60 MG CAPSULE FOR A TOTAL OF 90 MG Levothyroxine Sodium 200 MCG Oral Tablet *100 Ta*0 Sig: TAKE ONE TABLET BY MOUTH IN THE MORNING AT LEAST 30 MINUTES PRIOR TO BREAKFAST OR OTHER MEDS DULoxetine HCl 60 MG Or al Capsule Delayed*100 Ca*1 Sig: Take by mouth 1 Capsule in the morning. Along with 30 mg capsule to total 90 mg daily.. * Telephone Encounter - Frances Ceballos LPN - 02/18/2022 8:42 AM EDT Pending Prescriptions: Disp Refills DULoxetine HCl 30 MG Oral Capsule Delayed*90 Cap*0 Sig: TAKE ONE CAPSULE BY MOUTH ONE TIME DAILY. TAKE WITH 60 MG CAPSULE FOR A TOTAL OF 90 MG Levothyroxine Sodium 200 MCG Oral Tablet *100 Ta*0 Sig: TAKE ONE TABLET BY MOUTH IN THE MORNING AT LEAST 30 MINUTES PRIOR TO BREAKFAST OR OTHER MEDS DULoxetine HCl 60 MG Oral Capsule Delayed*100 Ca*1 Sig: Take by mouth 1 Capsule in the morning. Along with 30 mg capsule to total 90 mg daily.. 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, NYHA class 1 and CKD stage 3 ([facility]) I13.0, I50.30, N18.30 Hyperparathyroidism, secondary renal ([facility]) N25.81 Vasculitis ([facility]) I77.6 Primary osteoarthritis of left knee M17.12 Spinal stenosis of lumbar region without neurogenic claudication M48.061 Acute deep vein thrombosis (DVT) of proximal vein of lower extremity, unspecified laterality ([facility]) I82.4Y9 Type 2 diabetes mellitus with diabetic chronic kidney disease ([facility]) E11.22 Heparin induced thrombocytopenia (HIT) ([facility]) D75.82 Atherosclerosis of [place] coronary artery without angina pectoris I25.10 Carotid [...] failure ([facility]) J96.11 Labs: Lab Results Component Value Date/Time CREATININE - [facility] 1.4 (H) 01/07/2022 11:56 AM CREATININE - [facility] 2.0 (H) 05/06/2020 08:46 AM CREATININE JOHNNY 50 09/04/2018 02:27 PM CREATININE, RANDOM URINE - [facility] 74 01/07/2022 12:06 PM CREATININE, RANDOM URINE - [facility] 52 12/24/2019 07:28 AM CREATININE-OUTSIDE LAB 1.54 (A) 12/26/2021 12:00 AM Lab Results Component Value Date/Time POTASSIUM - [facility] 4.6 01/07/2022 11:56 AM POTASSIUM - [facility] 4.0 05/06/2020 08:46 AM POTASSIUM-OUTSIDE LAB 3.6 12/26/2021 12:00 AM Lab Results Component Value Date/Time TSH - [facility] 0.95 01/07/2022 11:56 AM TSH - [facility] 5.35 (H) 05/06/2020 08:46 AM TSH - OUTSIDE LAB 1.960 02/26/2019 12:00 AM Lab Results Component Value Date/Time LDL CHOLESTEROL (CALCULATED) - [facility] UNINTERPRETABLE RESULT [...] Results Component Value Date/Time ALT - [facility] 27 05/06/2020 08:46 AM ALT-OUTSIDE LAB 31 05/21/2017 12:00 AM Hemoglobin AIC Results: Lab Results Component Value Date/Time HEMOGLOBIN A1C - [facility] 7.8 (H) 01/07/2022 11:56 AM HEMOGLOBIN A1C - [facility] 8.3 (H) 11/17/2020 01:00 PM HEMOGLOBIN A1C - [facility] 7.3 (H) 01/23/2020 11:11 AM HEMOGLOBIN A1C - [facility] 8.3 (H) 11/07/2019 03:04 PM HEMOGLOBIN A1C - [facility] 9.4 (H) 08/09/2019 11:02 AM documented in this encounter Plan of Treatment Upcoming Encounters Date Type Specialty Care Team Description 02/18/2022 Office Visit Pulmonary Nikita Sanchez MD [address] [place] [address] Chronic hypoxemic respiratory failure (HCC)*; Chronic diastolic congestive heart failure (HCC); Morbid obesity with BMI of 50.0-59.9, adult (HCC); Acute deep vein thrombosis (DVT) of proximal vein of right lower extremity (HCC); ILD (interstitial lung disease) (HCC) 02/23/2022 [facility] Visit [facility] Vera Capellan RN [address] [place] [address] 03/03/2022 Hospital Encounter Surgery Raj Ahn DO [address] [place] [address] 03/03/2022 Surgery Surgery Raj Ahn, [address] [place] [address] INJECTION SACROILIAC JOINT 03/08/2022 Imaging Radiology 03/12/2022 Office Visit Family Medicine Lexii Andujar DO [address] [facility], [place] [address] 03/15/2022 Telemedicine [facility], Pharmacist [address] [place] [address] 04/05/2022 Office Visit Cardiology Marjorie Powell PA-C [address] [place] [address] 04/14/2022 Nurse Only Ancillary Linda, Nurse Annual Wellness Visit 65 [facility] [address] [facility], [place] [address] Scheduled Procedures Name Priority Associated Diagnoses Date/Ti [...] Additional history exists CKD GFR USE SMARTSET 73082 07/09/202201/07, 12/26/2021, 12/07/2021, Additional history exists DIABETES-HGBA1C EVERY 6 MONTHS 07/09/2022 01/07/2022, 11/17/2020, 01/23/2020, Additional history exists BASIC METABOLIC PANEL (BMP) FOR HTN YEARLY 01/07/2023 01/07/2022, 12/26/2021, 12/07/2021, Additional history exists CKD HGB USE SMARTSET 87732 01/07/202301/07, 01/07/2022, 12/26/2021, Additional history exists CKD PHOS USE SMARTSET 75168 01/07/2023 04/12/2021, 03/12/2021, 11/17/2020, Additional history exists [...] respiratory failure (HCC)- Primary Chronic respiratory failure Chronic diastolic congestive heart failure (HCC) Chronic diastolic heart failure Morbid obesity with BMI of 50.0-59.9, adult (HCC) Morbid obesity Acute deep vein thrombosis (DVT) of proximal vein of right lower extremity (HCC) ILD (interstitial lung disease) (HCC) Postinflammatory pulmonary fibrosis POSTSURGICAL HYPOTHYROID Postsurgical hypothyroidism Fibromyalgia Mylagia and myositis, unspecified Moderate episode of recurrent major depressive disorder (HCC) Primary osteoarthritis of both knees Primary localized osteoarthrosis, lower leg Inflammation of sacroiliac joint (HCC) Sacroiliitis, not elsewhere classified documented in this encounter Advance Directives Documents on File Type Date Recorded Patient Worm Raiser Expl anation Advanced Directive Advanced Directive Advanced [...] Camp Other Health Care Hayden r of Precinct Commanding Officer Princess Allen Other Health Care Pow er of Precinct Commanding Officer Care Teams Fish Hatchery Worker Relationship Specialty Start Date End Date Lexii Andujar, DO [address] [facility] [place] [address] PCP - General Internal Medicine 01/07/22 documented as of this encounter
--- OUTSIDE RECORDS SUMMARY | 2023-06-01 04:39 | External Medical Summary | Summary of Care ---
Author Name Unknown Organization [place] [address] Care Team Providers Care Tableau Administrator Name Role Phone Galdino Andujar DO Primary Care Provider Reason for Visit * Reason Onset Date Comments Medication Refill 02/06/2022 Encounter Details Date Type Department Care Team Description 02/06/2022 Refill [facility] [address] [place] [address] Migue Whiteside DO [address] [place] [address] Anxiety state Allergies Active Allergy Reactions Severity Noted Date Comments Codeine 07/08/2014 hallucination Pollen 05/18/2019 Heparin 09/04/2009 Heparin Induced Thrombocytopenia Hydrocodone Neuro complications (Please comment) 07/28/2020 Empagliflozin Other (Please comment) Medium 05/17/2018 3 yeast infections in 6 weeks after starting Morphine And Related 09/16/1997 Hallucinations Tetanus Toxoid Other (Please comment) 06/15/2011 Passed out documented as of this encounter (statuses as of 02/08/2022) Medications Medication Sig Dispensed Refills Start Date [...] 0 04/08/2020 Active Blood Glucose Monitoring Suppl (Venga ULTRA 2) w/Device KIT Use to test [...] A1c goal of 7.0%-8.0% ([facility]) Inject 40 units with meals + sliding scale 1 units for every 25 units BG > 150. 121 mL 3 11/04/2021 Active Tresiba FlexTouch 100 UNIT/ML Subcutaneous Solution Pen-injector (Insulin Degludec)Indication s:Type 2 diabetes mellitus with hemoglobin A1c goal of 7.0%-8.0% ([facility]) Inject under the skin 60 Units [...] 01/19/2022 Active clonazePAM 0.5 MG Oral Tablet (KlonoPIN)Macrinatio ns:Anxiety state Take by mouth 1 Tablet in the morning AND 1 Tablet before bedtime. 60 Tablet 0 02/08/2022 Active clonazePAM 0.5 MG Oral Tablet (KlonoPIN)Indicatio ns:Anxiety state Take by mouth 1 Tablet in the morning AND 1 Tablet before bedtime. 60 Tablet 0 12/31/2021 02/07/20 Discontinu ed(Refill) Hospital, Clinic, or Other Facility Administered Medication Ordered Dose Route Frequency Start Date End Date Status Albuterol Sulfate (Proventil) (2.5 MG/3ML) 0.083% inhalation solution 2.5 mgIndications:Chronic hypoxemic respiratory failure (HCC) 2.5 mg NEBULIZER Q4H PRN 10/08/2021 Active documented as of this encounter (statuses as of 02/08/2022) Active Problems Problem Noted Date Encounter for [...] 03/25/2016 Fibromyalgia 02/02/2016 Abnormality of gait 02/02/[address] [place] [address] in [address] 08/19/2014 History of pulmonary [...] as of this encounter (statuses as of 02/08/2022) Resolved Problems Problem Noted Date Resolved Date [...] as of this encounter (statuses as of 02/08/2022) Immunizations Name Administration Dates Next Due COVID-19 mRNA, LNP-s, No Pre serve, 2-Dose Series ([employer]) 12/29/2020,12/18/2020 Pneumococcal Polysaccharide PPV23 (Pneumovax) 08/22/2009,06/15/2006 Seasonal [...] encounter Miscellaneous Notes * Telephone Encounter - Migue Whiteside DO - 02/08/2022 7:46 AM EDT Signed Prescriptions: Disp Refills clonazePAM 0.5 MG Oral Tablet (KlonoPIN) 60 Tab*0 Sig: Take by mouth 1 Tablet in the morning AND 1 Tablet before bedtime. Authorizing Provider: MIGUE WHITESIDE * Telephone Encounter - Linda Dexter LPN - 02/08/2022 7:23 AM EDT Pending Prescriptions: Disp Refills clonazePAM 0.5 MG Oral Tablet (KlonoPIN) 60 Tab*0 Sig: Take by mouth 1 Tablet in the morning AND 1 Tablet before bedtime. * Telephone Encounter - Linda Detxer LPN - 02/08/2022 7:22 AM EDT Pending Prescriptions: Disp Refills clonazePAM 0.5 MG Oral Tablet (KlonoPIN) 60 Tab*0 Sig: Take by mouth 1 Tablet in the morning AND 1 Tablet before bedtime. Last Visit: 12/31/2021 (in office), 12/19/2020 (telemedicine) Next Visit: Visit date not found Last date the medication was ordered: Patient Active Problem List Diagnosis Code Dyslipidemia E78.5 ELLIE (generalized anxiety disorder) F41.1 Postsurgical hypothyroidism E89.0 ELISSA (obstructive sleep apnea) G47.33 Venous insufficiency I87.2 Essential hypertension with goal blood pressure less than 140/90 I10 History of pulmonary embolus (PE) Z86.711 Statin intolerance Z78.[address] [place] [address] Z95.828 Fibromyalgia M79.7 Abnormality of gait R26.9 Restless legs syndrome G25.81 Gastroesophageal reflux disease with esophagitis K21.00 Morbid obesity with BMI of 50.0-59.9, adult ([facility]) E66.01, Z68.43 Controlled substance agreement signed Z79.899 Chronic diastolic congestive heart failure ([facility]) I50.32 Mild episode of recurrent major depressive disorder ([facility]) F33.0 Lumbar radiculopathy M54.16 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, NYHA class 1 and CKD stage 3 ([facility]) I13.0, I50.30, N18.30 Hyperparathyroidism, secondary renal ([facility]) N25.81 Vasculitis ([facility]) I77.6 Primary osteoarthritis of left knee M17.12 Spinal stenosis of lumbar region without neurogenic claudication M48.061 Acute deep vein thrombosis (DVT) of proximal vein of lower extremity, unspecified laterality ([facility]) I82.4Y9 Type 2 diabetes mellitus with diabetic chronic kidney disease ([facility]) E11.22 Heparin induced thrombocytopenia (HIT) ([facility]) D75.82 Atherosclerosis of [place] coronary artery without angina pectoris I25.10 Carotid artery stenosis, asymptomatic, right I65.21 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 Encounter for long-term (current) use of other medications Z79.899 Type 2 diabetes mellitus with stage 3b chronic kidney disease ([facility]) E11.22, N18.32 Type 2 diabetes mellitus with hemoglobin A1c goal of less than 8.0% ([facility]) E11.9 Recurrent deep vein thrombosis (DVT) of both lower extremities ([facility]) I82.403 Chronic hypoxemic respiratory failure ([facility]) J96.11 Labs: Lab Results Component Value Date/Time [...] Encounters Date Type Specialty Care Team Description 02/10/2022 Office Visit [facility], Pharmacist [address] [facility] [address] [facility] [address] 02/11/2022 Office Visit Pain Management Raj Ahn, [address] [place] [address] 02/11/2022 Imaging Radiology 02/18/2022 Office Visit Pulmonary Nikita Sanchez MD [address] [place] [address] 02/23/2022 [facility]ellan, RN [facility] [place] [address] 03/08/2022 Imaging Radiology 03/12/2022 Office Visit Family Medicine Galdino Andujar, DO [address] [facility] [address] 04/05/2022 Office Visit Cardiology Marjorie Powell PA-C [facility] [place] [address] 04/14/2022 Nurse Only Ancillary [place], Nurse Annual Wellness Visit [address] [facility] [address] [facility] [address] Scheduled Procedures Name Priority Associated Diagnoses Date/Ti [...] Additional history exists CKD GFR USE SMARTSET 46382 07/09/202201/07, 12/26/2021, 12/07/2021, Additional history exists DIABETES-HGBA1C EVERY 6 MONTHS 07/09/2022 01/07/2022, 11/17/2020, 01/23/2020, Additional history exists BASIC METABOLIC PANEL (BMP) FOR HTN YEARLY 01/07/2023 01/07/2022, 12/26/2021, 12/07/2021, Additional history exists CKD HGB USE SMARTSET 24590 01/07/202301/07, 01/07/2022, 12/26/2021, Additional history exists CKD PHOS USE SMARTSET 70320 01/07/2023 04/12/2021, 03/12/2021, 11/17/2020, Additional history exists [...] Documents on File Type Date Recorded Patient Performance Solutions Specialist Expl anation Advanced Directive Advanced Directive Advanced [...] [place] Other Health Care Hayden r of All Around Gear Machine Operator Princess Allen Other Health Care Pow er of All Around Gear Machine Operator Care Teams Tableau Administrator Relationship Specialty Start Date End Date Galdino Andujar, DO [address] [place] [address] PCP - General Internal Medicine 01/07/22 documented as of this encounter
--- OUTSIDE RECORDS SUMMARY | 2023-06-01 04:39 | External Medical Summary | Summary of Care ---
Author Name Unknown Organization [place] [address] Care Team Providers Care Central Sterilization Technician Name Role Phone Galdino Andujar DO Primary Care Provider [phone] Reason for Visit * Reason Comments Back Pain Encounter Details Date Type Department Care Team Description 02/11/2022 Office Visit [facility] [address] [place] [id number] CouRaj soto DO [address] [place] [address] Sacroiliitis (HCC)*; Spinal stenosis of lumbar region [...] as of this encounter (statuses as of 02/11/2022) Medications Medication Sig Dispensed Refills Start Date [...] Cap 3 12/18/2019 Active DIURETIC TITRATION PLANIndications:Dry Mill Worker 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 1 Each 0 04/08/2020 Active Blood Glucose Monitoring Suppl ([employer] ULTRA 2) w/Device KIT Use to test [...] as of this encounter (statuses as of 02/11/2022) Active Problems Problem Noted Date Encounter for [...] as of this encounter (statuses as of 02/11/2022) Resolved Problems Problem Noted Date Resolved Date [...] as of this encounter (statuses as of 02/11/2022) Immunizations Name Administration Dates Next Due COVID-19 mRNA, LNP-s, No Pre serve, 2-Dose Series (appening) 12/29/2020,12/18/2020 Pneumococcal Polysaccharide PPV23 (Pneumovax) 08/22/2009,06/15/2006 Seasonal [...] Notes * Raj Nolen Cousins, DO - 02/11/2022 3:27 PM EDT Name: Stephanie Camp Date: 02/11/2022 HPI: Stephanie Camp is a 66 year old female who presents for re-evaluation after I last saw her in July of 2021. At that time she did improve with caudal epidural steroid injection for her underlying spinal stenosis. She has noticed increased pain in the bilateral lumbosacral buttock area over thelast few months with some aching into the lower extremities. She unfortunately developed a recurrent deep vein thrombosis in mid November of this year and was placed on Eliquis. She denies motor weakness or bowel bladder dysfunction associated with her pain. History: Past Medical History: Diagnosis Date ELSIE [...] (DVT) of both lower extremities (HCC) 01/07/2022 Spinal stenosis of lumbar region without neurogenic claudication 07/15/2020 Spontaneous pneumothorax 09/14/2009 Statin intolerance 07/16/2014 Type 2 diabetes mellitus with hemoglobin A1c goal of less than 8.0% ([facility]) 01/07/2022 Past Surgical History: Procedure Laterality Date ARTHROPLASTY KNEE TOTAL Right 07/24/14 R COLONOSCOPY, DIAGNOSTIC (RECTUM) 02/18/2016 normal, repeat 10 yrs/[facility] COLONOSCOPY, GI REFERRAL OP 01/28/06 diverticulosis--repeat 10 years INCISION OF WIN[place], PLANNED 06/03/2011 TRACHEOSTOMY PLANNED performed by DANNY HOLDER [place] [facility] [place]JECT DX/THER SUBSTANCE INTERLAMINAR LUMBAR/SACRAL W IMAGE GUIDE 05/26/2020 INJECTION SPINE LUMBAR OR SACRAL performed by Raj Ahn, DO at OR [facility] INJECT DX/THER SUBSTANCE INTERLAMINAR LUMBAR/SACRAL W IMAGE GUIDE 05/14/2021 INJECTION SPINE LUMBAR OR SACRAL performed by Raj Ahn DO at OR [facility] INJECT DX/THER SUBSTANCE INTERLAMINAR LUMBAR/SACRAL W IMAGE GUIDE 08/13/2021 INJECTION SPINE LUMBAR OR SACRAL performed by Raj Ahn DO at OR [facility] KNEE ARTHROSCOPY/DEBRIDEMENT 07/[address] PERMANENT GASTROSTOMY TUBE 09/06/09 GASTROSTOMY WITH CONSTUCTION GASTRIC TUBE performed by AMADOU NUNEZ at [place] [facility] REMOVAL OF THYROID GLAND 06/15/2011 THYROIDECTOMY INCLUDING SUBSTERNAL THYROID CERVICAL APPROACH performed by DANNY HOLDER at [place] [facility] REMOVE GALLBLADDER 09/06/09 CHOLECYSTECTOMY performed by AMADOU NUNEZ at [facility] REPAIR RECURRENT INCISIONAL HERNIA 1998 REVISION OF COLOSTOMY, SIMPLE 1998 SACROILIAC JOINT INJECT W/GUIDANCE 07/28/2020 INJECTION SACROILIAC JOINT performed by Raj Ahn DO at OR [facility] SUTURE, LARGE INTESTINE W/COLOSTOMY 1996 perforation R colon with colostomy VENA CAVA FILTER/LIGATION/CLIP 08/19/09 [place] filter placement through the right femoral 08/19/[address] Lerma at [facility] Current Outpatient Medications Medication Sig Dispense Refill docusate sodium (STOOL SOFTENER) 100 MG Capsule Take 100 mg by mouth 2 times a day as needed for Constipation. oxygen GAS 2 LPM bled through CPAP 11 cwp during all periods of sleep and 2 LPM via NC with exertion. omeprazole (PRILOSEC) 20 MG CPDR Take 1 Cap by mouth daily. 90 Cap 3 Potassium Chloride Ayleen ER 10 MEQ Oral Tablet Extended Release Take 10 mEq by mouth every otherday. Cholecalciferol 125 MCG (5000 UT) Oral Capsule Take 1,000 Units by mouth daily. DULoxetine HCl 30 MG Oral Capsule Delayed Release Particles (Cymbalta) TAKE ONE CAPSULE BY MOUTH ONE TIME DAILY. TAKE WITH 60 MG CAPSULE FOR A TOTAL OF 90 MG 90 Capsule 0 Furosemide 40 MG Oral Tablet (Lasix) Take by mouth 0.5 Tablets in the morning AND 0.5 Tablets before bedtime. May take an additional 20 mg 2 to 3 days per week as needed for worsening swelling. 135 Tablet 0 traZODone HCl 50 MG Oral Tablet (Desyrel) Take by mouth 1 Tablet before bedtime. 90 Tablet 0 Levothyroxine Sodium 200 MCG Oral Tablet (Levoxyl) TAKE ONE TABLET BY MOUTH IN THE MORNING AT LEAST 30 MINUTES PRIOR TO BREAKFAST OR OTHER MEDS 100 Tablet 0 Nortriptyline HCl 50 MG Oral Capsule (Pamelor) Take by mouth 1 Capsule before bedtime. 100 Capsule 1 rOPINIRole HCl 2 MG Oral Tablet (Requip) Take by mouth 1 Tablet before bedtime. 100 Tablet 1 Trulicity 4.5 MG/0.5ML Subcutaneous Solution Pen-injector (Dulaglutide) Inject 1 pen under the skin weekly 6 mL 5 Levothyroxine Sodium 50 MCG Oral Tablet (Levoxyl) Take by mouth 1 Tablet in the morning. (at least 30 min prior to breakfast or other meds). 90 Tablet 3 DULoxetine HCl 60 MG Oral Capsule Delayed Release Particles (Cymbalta) Take by mouth 1 Capsule in the morning. Along with 30 mg capsule to total 90 mg daily.. 100 Capsule 1 NovoLOG FlexPen 100 UNIT/ML Subcutaneous Solution [...] AND 1 Capsulebefore bedtime. 200 Capsule 3 ONETOUCH DELICA LANCETS 33G MISC Check blood sugars 3-4 times daily 180 Each 5 ACCU-CHEK SOFTCLIX LANCETS MISC Test blood sugar three or four times daily as directed 400 Each3 DIURETIC TITRATION PLAN If no improvement on day 3, contact heart failure managing provider. 1 Each 0 Blood Glucose Monitoring Suppl (XIPWIRETOUCH ULTRA 2) w/Device KIT Use to test [...] Do not take unless instructed by provider Lidocaine 4 % External Patch ( Lidocaine [...] BEDTIME NEEDED FOR SPASM 90 Tablet 3 Ondansetron HCl 4 MG [...] Mild. For abdominal pain. 450 Tablet 3 clonazePAM 0.5 MG Oral Tablet (KlonoPIN) Take by mouth 1 Tablet in the morning AND 1 Tablet before bedtime. 60 Tablet 0 Current Facility-Administered Medications Medication Dose Route Frequency Provider Last Rate Last Admin Albuterol Sulfate (Proventil) (2.5 MG/3ML) 0.083% inhalation solution 2.5 mg 2.5 mg Nebulizer Q4H PRN TATIANA Negrete Review of patient's allergies indicates: Allergen Reactions Jardiance [Empagliflozin] Other (Please comment) 3 yeast infections in 6 weeks after starting Codeine hallucination Hay Fever [Pollen] Heparin Heparin Induced Thrombocytopenia Hydrocodone Neuro complications (Please comment) Morphine And Related Hallucinations Tetanus Toxoid Other (Please comment) Passed out Social History Tobacco Use Smoking Status Former Smoker Packs/day: 1.00 Years: 15.00 Pack years: 15.00 Quit date: 08/26/1997 Years since quittin.4 Smokeless Tobacco Never Used Social History Substance and Sexual Activity Alcohol Use Not Currently Comment: rare ROS CONSTITUTIONAL: Denies anorexia, weight loss, fever, night sweats RESPIRATORY: Denies shortness of breath, wheezing, productive cough CARDIOVASCULAR: Denies chest pains, irregular heartbeat HEME: taking Eliquis ROS EXAM: Remainder of ROS negative as discussed above in the HPI PHYSICAL EXAM: LMP 03/11/2003 She can stand ambulate with use of a cane. She does have nasal oxygen in place. She has +5 over 5 motor function lower extremities. There are no gross sensory deficits noted. She does have tendernessover the sacroiliac joints bilaterally with positive Ernesto's. ASSESSMENT: Bilateral sacroiliitis Lumbar spinal stenosis RECOMMENDATION: Unfortunately she is not a good candidate to pursue epidural steroid injection in light of the recent the initiation of Eliquis for recurrent DVT. She has a follow-up ultrasound scheduled in another month. She does have significant the tenderness the near the sacroiliac joints and did have moderateimprovement in the past with sacroiliac joint injection. This could be pursued to at least provide some improvement for her and not require discontinuation of Eliquis. The procedural risks including bleeding, infection, worsening pain or steroid side effects including hyperglycemia were reviewed and accepted. She would like to proceed will be scheduled for bilateral sacroiliac joint injections. Raj Ahn DO 02/11/2022 3:27 PM documented in this encounter Nursing Notes * Telma Sandoval LPN - 02/11/2022 3:17 PM EDT Patient reports low back, b/l buttocks and leg pain No new imaging On eliquis documented in this encounter Plan of Treatment Upcoming Encounters Date Type Specialty Care Team Description 02/11/2022 Imaging Radiology Encounter for screening mammogram for breast cancer 02/18/2022 Office Visit Pulmonary Nikita Sanchez MD [address] [place] [address] 02/23/2022 Home Visit [facility] Vera Capellan RN [address] [place] [address] 03/03/2022 Hospital Encounter Surgery Raj Ahn DO [address] [place] [address] 03/03/2022 Surgery Surgery Raj Ahn DO [address] [place] [address] INJECTION SACROILIAC JOINT 03/08/2022 Imaging Radiology 03/12/2022 Office Visit Family Medicine Galdino Andujar DO [address] [facility], [place] [address] 04/05/2022 Office Visit Cardiology Marjorie Powell PA-C [address] [place] [address] 04/14/2022 Nurse Only Ancillary [employer], Nurse Annual Wellness Visit [address] [facility] [address] Scheduled Orders Name Type Priority Associated Diagnoses Orde r Schedule SACROILIAC JOINT INJECT W/GUIDANCE Procedures Routine Sacroiliitis (HCC) Ordered: 02/11/2022 Scheduled Procedures Name Priority Associated Diagnoses Date/Ti [...] Additional history exists CKD GFR USE SMARTSET 36062 07/09/202201/07, 12/26/2021, 12/07/2021, Additional history exists DIABETES-HGBA1C EVERY 6 MONTHS 07/09/2022 01/07/2022, 11/17/2020, 01/23/2020, Additional history exists BASIC METABOLIC PANEL (BMP) FOR HTN YEARLY 01/07/2023 01/07/2022, 12/26/2021, 12/07/2021, Additional history exists CKD HGB USE SMARTSET 28652 01/07/202301/07, 01/07/2022, 12/26/2021, Additional history exists CKD PHOS USE SMARTSET 32238 01/07/202312/25, 03/12/2021, 11/17/2020, Additional history exists DIABETES-FOOT [...] Spinal stenosis, lumbar region, with neurogenic claudication Encounter for screening mammogram for breast cancer Inflammation of sacroiliac joint (HCC) Sacroiliitis, not elsewhere classified documented in this encounter Advance Directives Documents on File Type Date Recorded Patient [place] Mill Operator Expl anation Advanced Directive Advanced Directive [...] [place] Other Health Care Hayden r of Apartment Maintenance Technician Princess Allen Other Health Care Pow er of Apartment Maintenance Technician Care Teams Central Sterilization Technician Relationship Specialty Start Date End Date Galdino Andujar, DO [address] [place] [address] PCP - General Internal Medicine 01/07/22 documented as of this encounter
--- OUTSIDE RECORDS SUMMARY | 2023-06-01 04:39 | External Medical Summary | Summary of Care ---
Author Name Unknown Organization [place] [address] Care Team Providers Care Hand Slitter Name Role Phone Ziaandrews Galdino Neal DO Primary Care Provider [phone] Encounter Details Date Type Department Care Team Description 02/10/2022 Documentation [facility]LL[facility] Kierra Woods, Health Air Tool Operator Allergies Active Allergy Reactions Severity Noted [...] 90 Cap 3 12/18/2019 Active DIURETIC TITRATION PLANIndications:Metal Alloy Scientist 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 1 Each 0 04/08/2020 Active Blood Glucose Monitoring Suppl ([employer] ULTRA 2) w/Device KIT Use to test [...] goal of 7.0%-8.0% ([facility]) Inject 40 units with meals + sliding scale 1 units for every 25 units BG > 150. 121 mL 3 11/04/2021 Active Tresiba FlexTouch 100 UNIT/ML Subcutaneous Solution Pen-injector (Insulin Degludec)Indications :Type 2 diabetes mellitus with hemoglobin A1c goal of 7.0%-8.0% ([facility]) Inject under the skin 60 [...] encounter Progress Notes * Kierra Woods Health Air Tool Operator - 02/10/2022 12:39 PM EDT SESSION TYPE: One-on-one exercise session: Exercise Subtype or Modality: Multi Exercise Duration: 30-45 minutes Weight: Blood pressure: Patient completed a one-on-one exercise session which consisted of cardiovascular and resistance training. She tolerated exercise well. She completed 4 minutes and 45 seconds of cardiovascular exercise on the Epitiro strider. SO2 Rest = 97% SO2 Exercise = 94% documented in this encounter Plan of Treatment Upcoming Encounters Date Type Specialty Care Team Description 02/11/2022 Office Visit Pain Management Raj Ahn, [address] [place] [address] 02/11/2022 Imaging Radiology 02/18/2022 Office Visit Pulmonary Nikita Sanchez MD [address] [place] [address] 02/23/2022 Home Visit [facility] Vera Capellan, RN [address] [place] [address] 03/08/2022 Imaging Radiology 03/12/2022 Office Visit Family Medicine Galdino Andujar DO [address] [facility], [place] [address] 04/05/2022 Office Visit Cardiology Marjorie Powell PA-C [address] [place] [address] 04/14/2022 Nurse Only [employer]illary [employer], Nurse Annual Wellness Visit [address] [facility], [place] [address] Scheduled Procedures Name Priority Associated Diagnoses Date/Ti [...] Additional history exists CKD GFR USE SMARTSET 40780 07/09/202201/07, 12/26/2021, 12/07/2021, Additional history exists DIABETES-HGBA1C EVERY 6 MONTHS 07/09/2022 01/07/2022, 11/17/2020, 01/23/2020, Additional history exists BASIC METABOLIC PANEL (BMP) FOR HTN YEARLY 01/07/2023 01/07/2022, 12/26/2021, 12/07/2021, Additional history exists CKD HGB USE SMARTSET 49307 01/07/202301/07, 01/07/2022, 12/26/2021, Additional history exists CKD PHOS USE SMARTSET 03643 01/07/2023 0412/2021, 03/12/2021, 11/17/2020, Additional history exists [...] Documents on File Type Date Recorded Patient Drawing Operator Expl anation Advanced Directive Advanced Directive [...] [place] Other Health Care Hayden r of Coat Agent Princess Allen Other Health Care Pow er of Coat Agent Care Teams Hand Slitter Relationship Specialty Start Date End Date Galdino Andujar, DO [address] [place] [address] PCP - General Internal Medicine 01/07/22 documented as of this encounter
--- OUTSIDE RECORDS SUMMARY | 2023-06-01 04:39 | External Medical Summary | Summary of Care ---
Author Name Unknown Organization [place] [address] Care Team Providers Care Training Generalist Name Role Phone Galdino Andujar DO Primary Care Provider [phone] Reason for Visit * Reason Comments Appointment Encounter Details Date Type Department Care Team Description 02/04/2022 Pharmacy Pharmacy, [facility] 132 [facility] [place] [address] [facility] 132 [facility] [place] [address] Acute deep vein thrombosis (DVT) of proximal vein of lower extremity, unspecified laterality (HCC)* Allergies Active Allergy Reactions Severity Noted Date Comments Codeine 07/08/2014 hallucination Pollen 05/18/2019 Heparin 09/04/2009 Heparin Induced Thrombocytopenia Hydrocodone Neuro complications (Please comment) 07/28/2020 Empagliflozin Other (Please comment) Medium 05/17/2018 3 yeast infections in 6 weeks after starting Morphine And Related 09/16/1997 Hallucinations Tetanus Toxoid Other (Please comment) 06/15/2011 Passed out documented as of this encounter (statuses as of 02/04/2022) Medications Medication Sig Dispensed Refills Start Date [...] 90 Cap 3 12/18/2019 Active DIURETIC TITRATION PLANIndications:Combination Machine Tool Operator 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 1 Each 0 04/08/2020 Active Blood Glucose Monitoring Suppl ([employer] ULTRA 2) w/Device KIT Use to [...] instructed by provider 0 Active Potassium Chloride Ayelen ER 10 MEQ Oral Tablet Extended Release [...] the morning. 45 mL 3 11/04/2021 Active clonazePAM 0.5 MG Oral Tablet (KlonoPIN)Indication s:Anxiety state Take by mouth 1 Tablet in the morning AND 1 Tablet before bedtime. 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 coronary arter y without angina pectoris 12/31/2021 [...] as of this encounter (statuses as of 02/04/2022) Resolved Problems Problem Noted Date Resolved Date [...] as of this encounter (statuses as of 02/04/2022) Immunizations Name Administration Dates Next Due COVID-19 mRNA, LNP-s, No Pre serve, 2-Dose Series (Birst) 12/29/2020,12/18/2020 Pneumococcal Polysaccharide PPV23 (Pneumovax) 08/22/2009,06/15/2006 Seasonal [...] as of this encounter Progress Notes * Rose Avila RPh - 02/04/2022 10:32 AM EDT Noted. Rose Avila, Pharm D Clinical Pharmacist 02/04/2022, 10:32 AM * ELISSA Barba - 02/04/2022 9:50 AM EDT Patient Phone Numbers Pt states she has an appointment with 65f and they will be managing her blood thinner as well as DM. documented in this encounter Plan of Treatment Upcoming Encounters Date Type Specialty Care Team Description 02/10/2022 Office Visit [facility], Pharmacist 65 [facility] [address] [place] [address] 02/18/2022 Office Visit Pulmonary Nikita Sanchez MD [address] [place] [address] 02/23/2022 Home Visit [facility] Vera Capellan RN [address] [address] 03/08/2022 Imaging Radiology 03/12/2022 Office Visit [facility] Galdino Andujar, DO [address] [place] [address] 04/05/2022 Office Visit Cardiology Marjorie Powell PA-C [address] [place] [address] 04/14/2022 Nurse Only Ancillary College, Nurse Annual Wellness Visit [address] [place], [place] [address] Scheduled Procedures Name Priority Associated Diagnoses Date/Ti me COLONOSCOPY FLEXIBLE PROXIMAL DIAGNOSTIC Recall Colon cancer screening Health Maintenance Due Date Last Done Comments Cologuard: Ages 45-75 2000 FOBT: Ages 45-75 2000 Sigmoidoscopy: Ages 45-75 2000 Pneumococcal Vaccine: 65+ Years (2 of 2 - PPSV23) 2020 08/22/2009, 06/15/2006 COVID-19 Vaccine (3 - Booster) 05/31/2021 12/29/2020, 12/18/2020 BREAST CANCER SCREENING DISCUSSION YEARLY AGES 40-75 10/01/2021 10/01/2020, 07/10/2019, 06/23/2018, Additional history exists DIABETES-EYE EXAM 04/14/2022 04/14/2021, , 04/05/2019, Additional history exists CKD GFR USE SMARTSET 35004 07/09/202201/07, 12/26/2021, 12/07/2021, Additional history exists DIABETES-HGBA1C EVERY 6 MONTHS 07/09/2022 01/07/2022, 11/17/2020, 01/23/2020, Additional history exists BASIC METABOLIC PANEL (BMP) FOR HTN YEARLY 01/07/2023 01/07/2022, 12/26/2021, 12/07/2021, Additional history exists CKD HGB USE SMARTSET 46115 01/07/202301/07, 01/07/2022, 12/26/2021, Additional history exists CKD PHOS USE SMARTSET 14435 01/07/2023 04/12/2021, 03/12/2021, 11/17/2020, Additional history exists [...] of this encounter Visit Diagnoses Diagnosis Acute deep vein thrombosis (DVT) of proximal vein of lower extremity, unspecified laterality (HCC)- Primary documented in this encounter Advance Directives Documents on File Type Date Recorded Patient Flat Knitter Expl anation Advanced Directive Advanced Directive Advanced [...] Relationship Communication Galdino Camp Other Health Care Hyaden r of Hair Spinning Machine Operator Princess Allen Other Health Care Pow er of Hair Spinning Machine Operator Care Teams Training Generalist Relationship Specialty Start Date End Date Galdino Andujar, DO [address] [place] [address] PCP - General Internal Medicine 01/07/22 documented as of this encounter
--- OUTSIDE RECORDS SUMMARY | 2023-06-01 04:39 | External Medical Summary | Summary of Care ---
Author Name Unknown Organization [place] [address] Care Team Providers Care Member Of The Legislative Council Name Role Phone Ziaandrews Galdino Neal DO Primary Care Provider [phone] Encounter Details Date Type Department Care Team Description 02/04/2022 Documentation HEALTH & WELLNESS Kierra Woods, Health Signal Operator Linguist Allergies Active Allergy Reactions Severity Noted Date [...] 90 Cap 3 12/18/2019 Active DIURETIC TITRATION PLANIndications:Dormitory Supervisor 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 1 Each 0 04/08/2020 Active Blood Glucose Monitoring Suppl ([employer] ULTRA 2) w/Device KIT Use to test [...] of 7.0%-8.0% ([facility]) Inject under the skin 60 Units [...] thrombocytopenia (HIT) 0 12/31/2021 Atherosclerosis of [place] coronary arter y without angina pectoris 12/31/2021 [...] encounter Progress Notes * Kierra Woods Health Signal Operator Linguist - 02/04/2022 4:27 PM EDT SESSION TYPE: One-on-one exercise session: Exercise Subtype or Modality: Multi Exercise Duration: 30-45 minutes Weight: Blood pressure: Patient completed one-on-one exercise session which consisted of cardiovascular and resistance training. She tolerated exercise well. Patient wasn't feeling well before her exercise session and stated it felt like her BP was low. It was checked by RN and patient was able to exercise seated. She completed 2 minutes of cardiovascular exercise on the [employer] strider. She is scheduled for another one-on-one session on 02/10 after her appointment with the pharmacist. SO2 Rest = 97% SO2 exercise = 93% documented in this encounter Plan of Treatment Upcoming Encounters Date Type Specialty Care Team Description 02/04/2022 Pharmacy [facility]acy [facility] [place] 132 [facility] [place] [address] Acute deep vein thrombosis (DVT) of proximal vein of lower extremity, unspecified laterality (HCC)* 02/10/2022 Office Visit [facility], Pharmacist [address] [facility], [place] [address] 02/18/2022 Office Visit Pulmonary Nikita Sanchez MD [address] [place] [address] 02/23/2022 Home Visit [facility] Vera Capellan RN 132 [facility] [place] [address] 03/08/2022 Imaging Radiology 03/12/2022 Office Visit [facility] Galdino Andujar, DO 293 [facility], [place] [address] 04/05/2022 Office Visit Cardiology Marjorie Powell PA-C [address] [place] [address] 04/14/2022 Nurse Only Ancillary College, Nurse Annual Wellness Visit [address] [place], [place] [address] Scheduled Procedures Name Priority Associated Diagnoses Date/Ti [...] Additional history exists CKD GFR USE SMARTSET 80306 07/09/202201/07, 12/26/2021, 12/07/2021, Additional history exists DIABETES-HGBA1C EVERY 6 MONTHS 07/09/2022 01/07/2022, 11/17/2020, 01/23/2020, Additional history exists BASIC METABOLIC PANEL (BMP) FOR HTN YEARLY 01/07/2023 01/07/2022, 12/26/2021, 12/07/2021, Additional history exists CKD HGB USE SMARTSET 93660 01/07/202301/07, 01/07/2022, 12/26/2021, Additional history exists CKD PHOS USE SMARTSET 15731 01/07/2023 04/12/2021, 03/12/2021, 11/17/2020, Additional history exists [...] on File Type Date Recorded Patient Network Technician Expl anation Advanced Directive Advanced Directive Advanced [...] Camp Other Health Care Hayden r of Early Interventionist Princess Allen Other Health Care Pow er of Early Interventionist Care Teams Member Of The Legislative Council Relationship Specialty Start Date End Date Galdino Andujar, DO [address] [place] [address] PCP - General Internal Medicine 01/07/22 documented as of this encounter
--- OUTSIDE RECORDS SUMMARY | 2023-06-01 04:39 | External Medical Summary | Summary of Care ---
Author Name Unknown Organization [place] [address] Care Team Providers Care Tying Machine Operator Name Role Phone Ziaandrews Galdino Neal DO Primary Care Provider [phone] Encounter Details Date Type Department Care Team Description 02/04/2022 Nurse Only Family Practice [address] [address] College, Nurse [facility] Prac [address] [address] Arrived Allergies Active Allergy Reactions Severity Noted [...] Cap 3 12/18/2019 Active DIURETIC TITRATION PLANIndications:Research Manager 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/31/2021 Atherosclerosis of [place] coronary arter y without angina pectoris 12/31/2021 [...] mRNA, LNP-s, No Pre serve, 2-Dose Series ([employer]) 12/29/2020,12/18/2020 Pneumococcal Polysaccharide PPV23 (Pneumovax) 08/22/2009,06/15/2006 Seasonal [...] Sign Reading Time Taken Comments Blood Pressure 101/73 02/04/2022 3:31 PM EDT Pulse 103 02/04/2022 3:31 PM EDT Temperature - - Respiratory Rate 16 02/04/2022 3:31 PM EDT Oxygen Saturation 94% 02/04/2022 3:31 PM EDT 3L Inhaled Oxygen Concentration - - Weight - - Height - - Body Mass Index - - documented in this encounter Progress Notes * Mraiam Ray RN - 02/04/2022 3:33 PM EDT Pt came in for exercise class and stated that she has been having low BP readings. Pt states that she feels "a little lightheaded; but not dizzy." Pt VS were checked after pt sat down in a chair for a few minutes. BP 101/73; pt was told that if feeling "light headed" she should probably only do "light exercise' while seated. No bending or sitting to standing. Pt states that she feels well enough to accomplish some light exercise. Kierra made aware and is going to instruct accordingly and closely monitor. documented in this encounter Plan of Treatment Upcoming Encounters Date Type Specialty Care Team Description 02/04/2022 Pharmacy Pharmacy [facility] [place] 132 [facility] [place] [address] Acute deep vein thrombosis (DVT) of proximal vein of lower extremity, unspecified laterality (HCC)* 02/10/2022 Office Visit Family Medicine College, Pharmacist 65 [facility] [address] 02/18/2022 Office Visit Pulmonary Nikita Sanchez MD [address] [place] [address] 02/23/2022 Home Visit [facility] Vera Capellan, RN 132 [facility] [place] [address] 03/08/2022 Imaging Radiology 03/12/2022 Office Visit Family Medicine Galdino Andujar, DO 293 [place] [address] 04/05/2022 Office Visit Cardiology Marjorie Powell PA-C 132 [facility] [place] [address] 04/14/2022 Nurse Only Ancillary College, Nurse Annual Wellness Visit [address] [place] [address] Scheduled Procedures Name Priority Associated Diagnoses Date/Ti [...] Additional history exists CKD GFR USE SMARTSET 79832 07/09/202201/07, 12/26/2021, 12/07/2021, Additional history exists DIABETES-HGBA1C EVERY 6 MONTHS 07/09/2022 01/07/2022, 11/17/2020, 01/23/2020, Additional history exists BASIC METABOLIC PANEL (BMP) FOR HTN YEARLY 01/07/2023 01/07/2022, 12/26/2021, 12/07/2021, Additional history exists CKD HGB USE SMARTSET 90243 01/07/202301/07, 01/07/2022, 12/26/2021, Additional history exists CKD PHOS USE SMARTSET 01846 01/07/2023 04/12/2021, 03/12/2021, 11/17/2020, Additional history exists [...] on File Type Date Recorded Patient Clinical Massage Therapist Expl anation Advanced Directive Advanced Directive [...] Camp Other Health Care Hayden r of Development Mgr Princess Allen Other Health Care Pow er of Development Mgr Care Teams Tying Machine Operator Relationship Specialty Start Date End Date Galdino Andujar, DO [address] [place] [address] PCP - General Internal Medicine 01/07/22 documented as of this encounter
--- OUTSIDE RECORDS SUMMARY | 2023-06-01 04:40 | External Medical Summary | Summary of Care ---
Author Name Unknown Organization [place] [address] Care Team Providers Care Oracle Endeca Consultant Name Role Phone Galdino Andujar DO Primary Care Provider [phone] Reason for Visit * Reason Onset Date Comments Other 02/03/2022 Encounter Details Date Type Department Care Team Description 02/03/2022 Telephone HEALTH & WELLNESS Kierra Woods, Health Crosscutter Rolled Glass Other Allergies Active Allergy Reactions Severity Noted Date Comments Codeine 07/08/2014 hallucination Pollen 05/18/2019 Heparin 09/04/2009 Heparin Induced Thrombocytopenia Hydrocodone Neuro complications (Please comment) 07/28/2020 Empagliflozin Other (Please comment) Medium 05/17/2018 3 yeast infections in 6 weeks after starting Morphine And Related 09/16/1997 Hallucinations Tetanus Toxoid Other (Please comment) 06/15/2011 Passed out documented as of this encounter (statuses as of 02/03/2022) Medications Medication Sig Dispensed Refills Start Date [...] 90 Cap 3 12/18/2019 Active DIURETIC TITRATION PLANIndications:Divisional Human Resources Director 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 1 Each 0 04/08/2020 Active Blood Glucose Monitoring Suppl (T[employer]ile ULTRA 2) w/Device KIT Use to test [...] of 7.0%-8.0% ([facility]) Inject 40 units with meals + sliding scale 1 units for every 25 units BG > 150. 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/31/2021 Atherosclerosis of [place] coronary arter y without angina pectoris 12/31/2021 [...] 03/25/2016 Fibromyalgia 02/02/2016 Abnormality of gait 02/02/[address] [place] [address] 08/19/2014 History of pulmonary [...] as of this encounter (statuses as of 02/03/2022) Resolved Problems Problem Noted Date Resolved Date [...] as of this encounter (statuses as of 02/03/2022) Immunizations Name Administration Dates Next Due COVID-19 [...] Notes * Telephone Encounter - Poly Benítez Crosscutter Rolled Glass - 02/03/2022 4:14 PM EDT Called and reminded patient that her one-on-one session is at 3:30 tomorrow. documented in this encounter Plan of Treatment Upcoming Encounters Date Type Specialty Care Team Description 02/04/2022 Pharmacy [facility] [place] [facility] [place] [address] 02/10/2022 Office Visit [facility], Pharmacist [address] [place] [address] 02/18/2022 Office Visit Pulmonary Nikita Sanchez MD [address] [place] [address] 02/23/2022 [facility] [place] [address] 03/08/2022 Imaging Radiology 03/12/2022 Office Visit [facility] Galdino Andujar, 293 [facility], [place] [address] 04/05/2022 Office Visit Cardiology [facility] Powell [facility]C [facility] [place] [address] 04/14/2022 Nurse Only Ancillary College, Nurse Annual Wellness Visit 65 [facility] [address] [place] [address] Scheduled Procedures Name Priority Associated Diagnoses Date/Ti [...] Additional history exists CKD GFR USE SMARTSET 65398 07/09/202201/07, 12/26/2021, 12/07/2021, Additional history exists DIABETES-HGBA1C EVERY 6 MONTHS 07/09/2022 01/07/2022, 11/17/2020, 01/23/2020, Additional history exists BASIC METABOLIC PANEL (BMP) FOR HTN YEARLY 01/07/2023 01/07/2022, 12/26/2021, 12/07/2021, Additional history exists CKD HGB USE SMARTSET 23981 01/07/202301/07, 01/07/2022, 12/26/2021, Additional history exists CKD PHOS USE SMARTSET 77859 01/07/2023 04/12/2021, 03/12/2021, 11/17/2020, Additional history exists [...] Documents on File Type Date Recorded Patient Airframe And Power Plant Mechanic Expl anation Advanced Directive Advanced Directive [...] Camp Other Health Care Hayden r of Transportation Coordinator Princess Allen Other Health Care Pow er of Transportation Coordinator Care Teams Oracle Endeca Consultant Relationship Specialty Start Date End Date Galdino Andujar, DO [address] [place] [address] PCP - General Internal Medicine 01/07/22 documented as of this encounter
--- OUTSIDE RECORDS SUMMARY | 2023-06-01 04:40 | External Medical Summary | Summary of Care ---
Author Name Unknown Organization [place] [address] Care Team Providers Care Sales 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 Name Role Phone Galdino Andujar DO Primary Care Provider [phone] Reason for Visit * Reason Onset Date Comments Other 01/29/2022 Encounter Details Date Type Department Care Team Description 01/29/2022 Telephone HEALTH & WELLNESS Kierra Woods, Health Cleaning Handyman Other Allergies Active Allergy Reactions Severity Noted Date Comments Codeine 07/08/2014 hallucination Pollen 05/18/2019 Heparin 09/04/2009 Heparin Induced Thrombocytopenia Hydrocodone Neuro complications (Please comment) 07/28/2020 Empagliflozin Other (Please comment) Medium 05/17/2018 3 yeast infections in 6 weeks after starting Morphine And Related 09/16/1997 Hallucinations Tetanus Toxoid Other (Please comment) 06/15/2011 Passed out documented as of this encounter (statuses as of 01/29/2022) Medications Medication Sig Dispensed Refills Start Date [...] 90 Cap 3 12/18/2019 Active DIURETIC TITRATION PLANIndications:Certified Respiratory Therapist 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/31/2021 Atherosclerosis of [place] coronary arter y without angina pectoris 12/31/2021 [...] 03/25/2016 Fibromyalgia 02/02/2016 Abnormality of gait 02/02/[address] [place] [address] 08/19/2014 History of pulmonary [...] as of this encounter (statuses as of 01/29/2022) Resolved Problems Problem Noted Date Resolved Date [...] as of this encounter (statuses as of 01/29/2022) Immunizations Name Administration Dates Next Due COVID-19 [...] * Telephone Encounter - Kierra Woods Health Cleaning Handyman - 01/29/2022 2:13 PM EDT Called patient to see if she was still interested in one-on-one sessions after cancelling her session this week. She is and is scheduled for 02/04 at 3:30 p.m. documented in this encounter Plan of Treatment Upcoming Encounters Date Type Specialty Care Team Description 02/02/2022 Home Visit Family Medicine Magaly Morales, Community Health Refrigeration Plant Operator [address] [place] [address] 02/03/2022 Office Visit Nephrology Erik Lenz MD [address] [place] [address] 02/04/2022 Pharmacy Pharmacy [facility] [place] [address] [place] [address] 02/18/2022 Office Visit Pulmonary Nikita Sanchez MD [address] [place] [facility] [place] [address] 02/23/2022 Home Visit [facility] Vera Capellan RN [address] [place] [address] 03/08/2022 Imaging Radiology 03/12/2022 Office Visit Family Medicine Galdino Andujar, DO [address] [place] [address] 04/05/2022 Office Visit Cardiology Marjorie Powell PA-C [address] [place] [address] 04/14/2022 Nurse Only Ancillary College, Nurse Annual Wellness Visit [address] [facility], [place] [address] Scheduled Procedures Name Priority Associated Diagnoses Date/Ti [...] Additional history exists CKD GFR USE SMARTSET 43248 07/09/202201/07, 12/26/2021, 12/07/2021, Additional history exists DIABETES-HGBA1C EVERY 6 MONTHS 07/09/2022 01/07/2022, 11/17/2020, 01/23/2020, Additional history exists BASIC METABOLIC PANEL (BMP) FOR HTN YEARLY 01/07/2023 01/07/2022, 12/26/2021, 12/07/2021, Additional history exists CKD HGB USE SMARTSET 17008 01/07/202301/07, 01/07/2022, 12/26/2021, Additional history exists CKD PHOS USE SMARTSET 86942 01/07/2023 04/12/2021, 03/12/2021, 11/17/2020, Additional history exists [...] Documents on File Type Date Recorded Patient Etcher Apprentice Expl anation Advanced Directive Advanced Directive Advanced [...] Camp Other Health Care Hayden r of Wet Machine Cutter Princess Allen Other Health Care Pow er of Wet Machine Cutter Care Teams Sales 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 Relationship Specialty Start Date End Date Galdino Andujar, DO [address] [place] [address] PCP - General Internal Medicine 01/07/22 documented as of this encounter
--- OUTSIDE RECORDS SUMMARY | 2023-06-01 04:40 | External Medical Summary | Summary of Care ---
Author Name Unknown Organization [place] [address] Care Team Providers Care Digital Intern Name Role Phone Lexii Andujar DO Primary Care Provider [phone] Reason for Visit * Reason Onset Date Comments Appointment 01/18/2022 Encounter Details Date Type Department Care Team Description 01/18/2022 Telephone Family Practice [address] [facility] [place] [address] [place] [address] Lexii Andujar DO [address], [place] [id number] Appointment Allergies Active Allergy Reactions Severity Noted Date Comments Codeine 07/08/2014 hallucination Pollen 05/18/2019 Heparin 09/04/2009 Heparin Induced Thrombocytopenia Hydrocodone Neuro complications (Please comment) 07/28/2020 Empagliflozin Other (Please comment) Medium 05/17/2018 3 yeast infections in 6 weeks after starting Morphine And Related 09/16/1997 Hallucinations Tetanus Toxoid Other (Please comment) 06/15/2011 Passed out documented as of this encounter (statuses as of 01/19/2022) Medications Medication Sig Dispensed Refills Start Date [...] 0 04/08/2020 Active Blood Glucose Monitoring Suppl (Elastagen ULTRA 2) w/Device KIT Use to test [...] 02/09/2021 Active Nerve Pain Relief Sublingual Tablet SublingualIndicatio [...] 7.0%-8.0% ([facility]) Inject 40 units with meals + sliding scale 1 units for every 25 units BG > 150. 121 mL 11/04/2021 Active Tresiba FlexTouch 100 UNIT/ML Subcutaneous Solution Pen-injector (Insulin Degludec)Indication s:Type 2 diabetes mellitus with hemoglobin A1c goal of 7.0%-8.0% ([facility]) Inject under the skin 60 Units in the morning. 45 mL 11/04/2021 Active clonazePAM 0.5 MG Oral Tablet (KlonoPIN)Indicatio [...] Capsule before bedtime. 200 Capsule 01/19/2022 Active Gabapentin 300 MG Oral Capsule (Neurontin) Take 300 mg by mouth 2 times a day. 0 01/20/20 22 Discontinu ed(Refill) Hospital, Clinic, or Other Facility Administered Medication Ordered Dose Route Frequency Start Date End Date Status Albuterol Sulfate (Proventil) (2.5 MG/3ML) 0.083% inhalation solution 2.5 mgIndications:Chronic hypoxemic respiratory failure (HCC) 2.5 mg NEBULIZER Q4H PRN 10/08/2021 Active documented as of this encounter (statuses as of 01/19/2022) Active Problems Problem Noted Date Encounter for [...] 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/31/2021 Atherosclerosis of [place] coronary arter y without angina pectoris 12/31/2021 [...] 03/25/2016 Fibromyalgia 02/02/2016 Abnormality of gait 02/02/[address] [place] [address] 08/19/2014 History of pulmonary [...] as of this encounter (statuses as of 01/19/2022) Resolved Problems Problem Noted Date Resolved Date [...] as of this encounter (statuses as of 01/19/2022) Immunizations Name Administration Dates Next Due COVID-19 mRNA, LNP-s, No Pre serve, 2-Dose Series ([employer] 12/29/2020,12/18/2020 Pneumococcal Polysaccharide PPV23 (Pneumovax) 08/22/2009,06/15/2006 Seasonal [...] Telephone Encounter - Lexii Andujar DO - 01/19/2022 3:20 PM EDT BP is good * Telephone Encounter - ELISSA Salguero - 01/19/2022 9:12 AM EDT Patient called in with blood pressure. Blood Pressure is 113/66 * Addendum Note - Lexii Andujar DO - 01/19/2022 8:56 AM EDT Addended by: LEXII ANDUJAR on: 01/19/2022 08:56 AM Modules accepted: Orders * Addendum Note - Shira Gross LPN - 01/19/2022 8:38 AM EDT Addended by: SHIRA GROSS on: 01/19/2022 08:38 AM Modules accepted: Orders * Telephone Encounter - Shira Gross LPN - 01/19/2022 8:33 AM EDT Called and spoke to patient, states she has bilateral edema in both feet. Is keeping feet elevated, states this does happen to her. Is taking the additional lasix as directed on NOV. Does not have chest pain or sob. Legs/feet are not draining, are slightly red but not as red as they can get. Does wear NONI hose hose when out of the house. Advised to wear NONI hose during the day. Not near her BP cuff, will take her BP today and let us know reading. Pended needed refill to confirmed pharmacy. Thank you * Telephone Encounter - Mariam Ray RN - 01/18/2022 2:34 PM EDT Called and left message for pt to return call. This nurse wanted to ask if there was an injury to her foot? Past medical hx includes: recurrent DVT of bilateral lower extremities, heparin- induced thrombocytopenia, along with PE. Pt currently on 5mg of Eliquis bid and 20 mg of Lasix bid. Pt also has hx of : 08/19/09 Vena cava filter/ligation/clip Frank filter placement through the right femoral 08/19/[address] Lerma at [facility] * Telephone Encounter - Kierra [facility] Traffic Signal Technician - 01/18/2022 1:49 PM EDT Returned patient's call to reschedule fitness assessment. She stated that she had to cancel today due to her foot being so swollen that she couldn't get a good enough shoe (to exercise in) on her foot. She is rescheduled for 01/22/22 at 12:30 p.m. * Telephone Encounter - ELISSA Salguero - 01/18/2022 11:17 AM EDT PT called she is unable to come in for her appt with Kierra. Please call patient to reschedule documented in this encounter Plan of Treatment Upcoming Encounters Date Type Specialty Care Team Description 01/21/2022 Office Visit Family Medicine Kevin Whiteside DO [address] [facility] [place] [address] 01/21/2022 Office Visit Pharmacy [facility] Moe Bobo [address] [facility] [place] [address] 02/02/2022 Home Visit Family Medicine Magaly Morales, Community Health Compliance Manager [address] [place] [address] 02/03/2022 Office Visit Nephrology Erik Lenz MD [address] [place] [address] 02/18/2022 Office Visit Pulmonary Nikita Sanchez MD [address] [place] [address] 02/23/2022 [facility] Visit [facility] Vera Capellan RN [address] [place] [address] 03/08/2022 Imaging Radiology 03/12/2022 Office Visit Family Medicine Lexii Andujar, DO [address] [facility] [address] 04/05/2022 Office Visit Cardiology Marjorie Powell PA-C [address] [facility] [address] 04/14/2022 Nurse Only [employer], Nurse Annual Wellness Visit [address] [facility] [address] Scheduled Procedures Name Priority Associated Diagnoses Date/Ti [...] Additional history exists CKD GFR USE SMARTSET 54190 07/09/202201/07, 12/26/2021, 12/07/2021, Additional history exists DIABETES-HGBA1C EVERY 6 MONTHS 07/09/2022 01/07/2022, 11/17/2020, 01/23/2020, Additional history exists BASIC METABOLIC PANEL (BMP) FOR HTN YEARLY 01/07/2023 01/07/2022, 12/26/2021, 12/07/2021, Additional history exists CKD HGB USE SMARTSET 84757 01/07/202301/07, 01/07/2022, 12/26/2021, Additional history exists CKD PHOS USE SMARTSET 48343 01/07/2023 04/12/2021, 03/12/2021, 11/17/2020, Additional history exists [...] Documents on File Type Date Recorded Patient 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
--- OUTSIDE RECORDS SUMMARY | 2023-06-01 04:40 | External Medical Summary | Summary of Care ---
Author Name Unknown Organization [place] [address] Care Team Providers Care Wool Hat Flanger Name Role Phone Galdino Andujar DO Primary Care Provider [phone] Reason for Visit * Reason Comments Chronic Kidney Disease (CKD) Encounter Details Date Type Department Care Team Description 02/03/2022 Office Visit Nephrology, Gregorio Pamplic[address] [place] [id number] Erik Lenz MD [address] [facility] [place] [address] Stage 3b chronic kidney disease (HCC)*; Chronic diastolic congestive heart failure (HCC); HTN, goal below 130/80 Allergies Active Allergy Reactions Severity Noted Date [...] 90 Cap 3 12/18/2019 Active DIURETIC TITRATION PLANIndications:Band Splicer 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 1 Each 0 04/08/2020 Active Blood Glucose Monitoring Suppl (e-Go aeroplanes ULTRA 2) w/Device KIT Use to test [...] 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/31/2021 Atherosclerosis of [place] coronary arter y without angina pectoris 12/31/2021 [...] mRNA, LNP-s, No Pre serve, 2-Dose Series ([employer]) 12/29/2020,12/18/2020 Pneumococcal Polysaccharide PPV23 (Pneumovax) 08/22/2009,06/15/2006 Seasonal [...] Sign Reading Time Taken Comments Blood Pressure 90/60 02/03/2022 3:09 PM EDT Pulse 101 02/03/2022 3:09 PM EDT Temperature 36.2 C (97.2 F) 02/03/2022 3 :09 PM EDT Respiratory Rate 22 02/03/2022 3:09 PM EDT Oxygen Saturation 94% 02/03/2022 3:0 9 PM EDT nasal O2 @ 3l/min Inhaled Oxygen Concentration - - Weight 149.5 kg (329 lb 9.6 oz) 02/03/2022 3:09 PM EDT Height - - Body Mass Index 54.85 01/07/2022 10:46 AM EDT documented in this encounter Progress Notes * Erik Lenz MD - 02/03/2022 3:20 PM EDT This 66-year-old female with 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 She has history of type 2 diabetes for over 20 years mostly uncontrolled in the past, no retinopathy but has neuropathy,ELISSA on CPAP,DVT status post IVC filter, fibromyalgia hypertension and obesity. Ultrasound done on 06/06/2018 showed the right kidney of 10.2 cm and left kidney of 10.9 cm. There was mild cortical atrophy and mild right-sided hydronephrosis. EchocardiogramAugust 2019showed EF of60%and grade1 diastolic dysfunction. [facility] the weakness and CHF exacerbation. Creatinine peaked at 2.3. Last office visit was in 02/2021--was admitted August 2021 for pneumonia . Also had DVT in the right leg She has had renal labs checked since discharge and is stable . She uses oxygen now most of the time. Renal function fluctuates quite a bit. Review of Systems: General ROS: negative for - chills or fever Psychological ROS: negative for - mood swings ENT ROS: negative for - nasal congestion or nasal discharge Endocrine ROS: dm Respiratory ROS: no cough, shortness of breath, or wheezing Cardiovascular ROS: no chest pain or dyspnea on exertion Gastrointestinal ROS: no abdominal pain, change in bowel habits, or black or bloody stools Genito-Urinary ROS: no dysuria, trouble voiding, or hematuria Musculoskeletal ROS: negative for - muscle pain Neurological ROS: no TIA or stroke symptoms Dermatological ROS: negative for rash Past Medical History: Diagnosis Date ELSIE (acute kidney injury) ([facility]) 06/12/2018 Allergic rhinitis due to other allergen Chronic hypoxemic respiratory failure ([facility]) 01/07/2022 Diverticulosis of colon 01/28/2006 Essential hypertension with goal blood pressure less than 140/90 02/22/2014 ELLIE (generalized anxiety disorder) 09/13/2009 Goiter [place] filter in place 08/19/2014 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[facility]) 08/22/2009 History of pulmonary embolus (PE) 07/16/2014 HTN, goal below 140/90 Impetigo 09/27/2018 Obesity, BMI not known Perforation of intestine ([facility]) 1996 COLON -- 1996 Pneumonia in aspergillosis(484.6) 09/14/2009 Recurrent deep vein thrombosis (DVT) of both lower extremities ([facility]) 01/07/2022 Spinal stenosis of lumbar region without neurogenic claudication 07/15/2020 Spontaneous pneumothorax 09/14/2009 Statin intolerance 07/16/2014 Type 2 diabetes mellitus with hemoglobin A1c goal of less than 8.0% ([facility]) 01/07/2022 Past Surgical History: Procedure Laterality Date ARTHROPLASTY KNEE TOTAL Right 07/24/14 R COLONOSCOPY, DIAGNOSTIC (RECTUM) 02/18/2016 normal, repeat 10 yrs/[facility] COLONOSCOPY, GI REFERRAL OP 01/28/06 diverticulosis--repeat 10 years INCISION OF WIN[place], PLANNED 06/03/2011 TRACHEOSTOMY PLANNED performed by DANNY HOLDER at OR [facility] [place] INJECT DX/THER SUBSTANCE INTERLAMINAR LUMBAR/SACRAL W IMAGE GUIDE 05/26/2020 INJECTION SPINE LUMBAR OR SACRAL performed by Raj Ahn DO at OR [facility] INJECT DX/THER SUBSTANCE INTERLAMINAR LUMBAR/SACRAL W IMAGE GUIDE 05/14/2021 INJECTION SPINE LUMBAR OR SACRAL performed by Raj Ahn DO at OR [facility] INJECT DX/THER SUBSTANCE INTERLAMINAR LUMBAR/SACRAL W IMAGE GUIDE 08/13/2021 INJECTION SPINE LUMBAR OR SACRAL performed by Raj Ahn DO at OR [facility] KNEE ARTHROSCOPY/DEBRIDEMENT 07/[address] [...] performed by Raj Ahn DO at OR [facility] SUTURE, LARGE INTESTINE W/COLOSTOMY 1996 perforation R colon with colostomy VENA CAVA FILTER/LIGATION/CLIP 08/19/09 [place] filter placement through the right femoral 08/19/[address] Lerma at [facility] Review of patient's allergies indicates: [...] times a day as needed for Constipation. GymboxTOUCH DELICA LANCETS 33G MISC Check blood sugars [...] Tab 1 CPAP every night at bedtime. Potassium Chloride Ayleen ER 10 MEQ Oral Tablet Extended Release Take 10 mEq by mouth every otherday. Cholecalciferol 125 MCG (5000 UT) Oral Capsule Take 1,000 Units by mouth daily. Lidocaine 4 % External Patch ( Lidocaine Patch) Place topically on the skin 1 Patch daily . BD Pen Needle Short U/F 31G X 8 MM (Insulin Pen Needle) use five times daily 500 Each 3 DULoxetine HCl 30 MG Oral Capsule [...] Mild. For abdominal pain. 450 Tablet 3 DULoxetine HCl 60 MG Oral [...] Units in the morning. 45 mL 3 clonazePAM 0.5 MG Oral Tablet (KlonoPIN) [...] twice a day . 180 Tablet 3 clobetasol propionate (TEMOVATE) 0.05 % cream Apply to rash on the hands and dorsal feet twice daily x 1 week, then as needed for flares. (Patient not taking: Reported on 01/07/2022 ) 30 g 1 Magnesium Oxide 400 (241.3 Mg) MG Oral Tablet Take 400 mg by mouth daily. (Patient not taking: Reported on 12/31/2021 ) 90 Tab 0 Colchicine 0.6 MG Oral Tablet Take 1/2 tab daily (Patient not taking: Reported on 02/03/2022 ) 45 Tab 1 Nerve Pain Relief Sublingual Tablet Sublingual Place under the tongue. Indications: pt taking Nervive, nerve relief tablets at bedtime metOLazone 2.5 MG Oral Tablet (Zaroxolyn) Take 2.5 mg by mouth daily as needed. Do not take unless instructed by provider Ondansetron HCl 4 MG Oral Tablet Take by mouth 1 Tablet every 6 hours as needed for Nausea. 90 Tablet 6 Gabapentin 300 MG Oral Capsule (Neurontin) Take by mouth 1 Capsule in the morning AND 1 Capsulebefore bedtime. 200 Capsule 3 Current Facility-Administered Medications Medication Dose Route Frequency Provider Last Rate Last Admin Albuterol Sulfate (Proventil) (2.5 MG/3ML) 0.083% inhalation solution 2.5 mg 2.5 mg Nebulizer Q4H PRN TATIANA Negrete Family History Problem Relation Age of Onset Cancer Mother liver - age 45 Cancer Father lung - age 74 (smoker) Heart Disorder Brother age 45 - possible tumor COPD Brother Diabetes Grandmother (Paternal) Cancer Grandfather (Paternal) bone ca - in 70's Social History Socioeconomic History Marital status: Single Spouse name: Not on file Number of children: Not on file Years of education: Not on file Highest education level: Not on file Occupational History 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 Employer: [employer] Occupation: [employer] Employer: [employer] Social Needs Financial resource strain: Not on file Food insecurity Worry: Never true Inability: Never true Transportation needs Medical: Not on file Non-medical: Not on file Tobacco Use Smoking status: Former Smoker Packs/day: 1.00 Years: 15.00 Pack years: 15.00 Quit date: 08/26/1997 Years since quittin.5 Smokeless tobacco: Never Used Substance and Sexual Activity Alcohol use: Not Currently Comment: rare Drug use: No Sexual activity: Not Currently Lifestyle Physical activity Days per week: Not on file Minutes per session: Not on file Stress: Not on file Relationships Social connections Talks on phone: Not on file Gets together: Not on file Attends moravian service: Not on file Active member of club or organization: Not on file Attends meetings of clubs or organizations: Not on file Relationship status: Not on file Intimate partner violence Fear of current or ex partner: Not on file Emotionally abused: Not on file Physically abused: Not on file Forced sexual activity: Not on file Other Topics Concern Not on file Social History Narrative 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 Chest bilateral clear to auscultation CVS S1-S2 regular Abdomen is soft nontender obese Extremities shows trace edema obesity related Skin no rashes noted NEPH-FLOW Latest Ref Rng & Units 12/24/2019 01/04/2020 01/23/2020 Bun 6 - 20 mg/dL 32 (H) 37 (H) 37 (H) Cr 0.5 - 1.0 mg/dL 2.2 (H) 1.9 (H) 1.8 (H) eGFR >60 mL/min eGFR >60 22.8 (L) 27.9 (L) 30.2 (L) K 3.5 - 5.1 mmol/L 5.3 (H) 5.1 4.2 Hb 12.0 - 15.3 g/dL Microalb/cr ratio <30 mg/g creat NEPH-FLOW Latest Ref Rng & Units 02/21/2020 03/07/2020 05/06/2020 Bun 6 - 20 mg/dL 27 (H) 30 (H) 38 (H) Cr 0.5 - 1.0 mg/dL 1.4 (H) 1.7 (H) 2.0 (H) eGFR >60 mL/min eGFR >60 38.3 (L) 31.8 (L) 26.0 (L) K 3.5 - 5.1 mmol/L 3.9 3.7 4.0 Hb 12.0 - 15.3 g/dL 14.5 Microalb/cr ratio <30 mg/g creat NEPH-FLOW Latest Ref Rng & Units 12/07/2021 12/26/2021 01/07/2022 Bun 6 - 20 mg/dL 19 25 (H) Cr 0.5 - 1.0 mg/dL 1.6 (H) 1.54 (A) 1.4 (H) eGFR >=60 mL/min 36 (L) 34.8 43 (L) eGFR >60 K 3.5 - 5.1 mmol/L 3.8 3.6 4.6 Hb 12.0 - 15.3 g/dL 12.5 14.3 13.9 Pro/Cr ratio <150 mg/g Microalb/cr ratio <30 mg/g creat ASSESSMENT/PLAN: Stage 3b chronic kidney disease (HCC) (Primary) Patient with the CKD stage 3 to 4 likely due to diabetic nephropathy and chronic NSAID use. She is no longertaking NSAIDs. She can use Tylenol for pain control. She knows to limit salt and keepwell hydratedbut not more than 2 L of water daily. Repeat labs as below. Reviewed hospital admission for Pneumonia and RT DVT. Now on eliquis. BP runs low and not on any meds. Labs done 1 month ago January 07, 2022 was reviewed and shows creatinine of 1.4 GFR of 43 which isactually stable to slightly better than before. No need to labs today Chronic diastolic congestive heart failure (HCC) Her symptoms are controlled on diuretics. Continue current dose of Lasix20 mgtwice daily. Adjusted by Cardiology Follow Up: Return in about 6 months (around 08/06/2022) for Clinic Visit. | For: Clinic Visit Case complexity high with review of hospitalization and post hospitalization course as well as medication changes. I spent a total of 40-54 minutes (exact time 43 mins) on the date of service in preparation, delivery, and documentation of the care provided to Stephanie Camp excluding any time spent in the performance of separately billed services. Erik Lenz MD documented in this encounter Nursing Notes * Brianna Riggins RN - 02/03/2022 3:09 PM EDT Follow up visit. No recent illness but is obviously short of breath with minor exertion. Does wear Nasal O2 at all times. Wears compression hose. States she has a DVT in right leg behind knee. documented in this encounter Plan of Treatment Upcoming Encounters Date Type Specialty Care Team Description 02/04/2022 Pharmacy [facility] [address] [facility] [place] [address] 02/10/2022 Office Visit [facility], Pharmacist [address] [facility] [address] 02/18/2022 Office Visit Pulmonary Nikita Sanchez MD [address] [place] [address] 02/23/2022 Home Visit [facility] Vera Capellan, RN [address] [place] [address] 03/08/2022 Imaging Radiology 03/12/2022 Office Visit Family Medicine Galdino Andujar, DO [address] [facility] [place] [address] 04/05/2022 Office Visit Cardiology Marjorie Powell [facility]-C [address] [facility] [address] 04/14/2022 Nurse Only [employer]illary [employer], Nurse Annual Wellness Visit [address] [facility] [place] [address] Scheduled Procedures Name Priority Associated Diagnoses Date/Ti [...] Additional history exists CKD GFR USE SMARTSET 39260 07/09/202201/07, 12/26/2021, 12/07/2021, Additional history exists DIABETES-HGBA1C EVERY 6 MONTHS 07/09/2022 01/07/2022, 11/17/2020, 01/23/2020, Additional history exists BASIC METABOLIC PANEL (BMP) FOR HTN YEARLY 01/07/2023 01/07/2022, 12/26/2021, 12/07/2021, Additional history exists CKD HGB USE SMARTSET 89213 01/07/202301/07, 01/07/2022, 12/26/2021, Additional history exists CKD PHOS USE SMARTSET 49638 01/07/2023 0412/2021, 03/12/2021, 11/17/2020, Additional history exists [...] as of this encounter Visit Diagnoses Diagnosis Stage 3b chronic kidney disease (HCC)- Primary Chronic diastolic congestive heart failure (HCC) Chronic diastolic heart failure HTN, goal below 130/80 Unspecified essential hypertension documented in this encounter Advance Directives Documents on File Type Date Recorded Patient Wood Heel Fitter Machine Expl anation Advanced Directive Advanced Directive Advanced [...] Camp Other Health Care Hayden r of Jewel Bearing Broacher Princess Allen Other Health Care Pow er of Jewel Bearing Broacher Care Teams Wool Hat Flanger Relationship Specialty Start Date End Date Galdino Andujar, DO [address] [facility] [place] [address] PCP - General Internal Medicine 01/07/22 documented as of this encounter"
--- OUTSIDE RECORDS SUMMARY | 2023-06-01 04:40 | External Medical Summary | Summary of Care ---
Author Name Unknown Organization [place] [address] Care Team Providers Care Engineering Manager Name Role Phone Galdino Andujar DO Primary Care Provider [phone] Reason for Visit * Reason Onset Date Comments Appointment 02/03/2022 Encounter Details Date Type Department Care Team Description 02/03/2022 Telephone Family Practice 65 [facility] [place] [address] [place] [address] Galdino Andujar DO [address] [place], [place] [address] Appointment Allergies Active Allergy Reactions Severity Noted [...] 90 Cap 3 12/18/2019 Active DIURETIC TITRATION PLANIndications: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 1 Each 0 04/08/2020 Active Blood Glucose Monitoring Suppl ([employer] ULTRA 2) w/Device KIT Use to test [...] of 7.0%-8.0% ([facility]) Inject 40 units with meals + sliding scale 1 units for every 25 units BG > 150. 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 * Telephone Encounter - ELISSA Whitten - 02/03/2022 1:04 PM EDT Pt called requesting to see the [facility] pharmacist. She said that previously she has seen Rose at [facility], but she would like to come to [facility] for her pharm needs. I scheduled a 40-minute appt for her on 02/10/22 at 10:10AM Pt is aware and will comply. documented in this encounter Plan of Treatment Upcoming Encounters Date Type Specialty Care Team Description 02/03/2022 Office Visit Nephrology Erik Lenz MD 200 [facility], [place] [address] 02/04/2022 Pharmacy Pharmacy [facility] [address] [place] [address] 02/10/2022 Office Visit Family Medicine Lyndon, Pharmacist 65 [facility] [address] [place] [address] 02/18/2022 Office Visit Pulmonary Nikita Sanchez MD [address] [place] [address] 02/23/2022 Home Visit [facility] Vera Capellan, RN 132 [place] [address] 03/08/2022 Imaging Radiology 03/12/2022 Office Visit Family Medicine Galdino Andujar, 293 [place] [place] [address] 04/05/2022 Office Visit Cardiology Marjorie Powell PA-C 132 [facility] [place] [address] 04/14/2022 Nurse Only Ancillary College, Nurse Annual Wellness Visit [address] [place] [address] Scheduled Procedures Name Priority Associated Diagnoses Date/Ti [...] Additional history exists CKD GFR USE SMARTSET 45217 07/09/202201/07, 12/26/2021, 12/07/2021, Additional history exists DIABETES-HGBA1C EVERY 6 MONTHS 07/09/2022 01/07/2022, 11/17/2020, 01/23/2020, Additional history exists BASIC METABOLIC PANEL (BMP) FOR HTN YEARLY 01/07/2023 01/07/2022, 12/26/2021, 12/07/2021, Additional history exists CKD HGB USE SMARTSET 75529 01/07/202301/07, 01/07/2022, 12/26/2021, Additional history exists CKD PHOS USE SMARTSET 68232 01/07/2023 0412/2021, 03/12/2021, 11/17/2020, Additional history exists [...] on File Type Date Recorded Patient 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
--- OUTSIDE RECORDS SUMMARY | 2023-06-01 04:40 | External Medical Summary | Summary of Care ---
Author Name Unknown Organization [place] [address] Care Team Providers Care Manager Corporate Name Role Phone Lexii Andujar DO Primary Care Provider Reason for Visit * Reason Onset Date Comments Appointment 01/18/2022 Encounter Details Date Type Department Care Team Description 01/18/2022 Telephone Family Practice 65 [facility] [place] [address] [place] [address] Lexii Andujar DO [address] [place], [place] [id number] Appointment Allergies Active Allergy Reactions Severity Noted [...] 0 04/08/2020 Active Blood Glucose Monitoring Suppl (BlueLithium ULTRA 2) w/Device KIT Use to test [...] of 7.0%-8.0% ([facility]) Inject 40 units with meals + sliding scale 1 units for every 25 units BG > 150. 121 mL 11/04/2021 Active Tresiba FlexTouch 100 UNIT/ML Subcutaneous Solution Pen-injector (Insulin Degludec)Indication s:Type 2 diabetes mellitus with hemoglobin A1c goal of 7.0%-8.0% ([facility]) Inject under the skin 60 Units in [...] 03/25/2016 Fibromyalgia 02/02/2016 Abnormality of gait 02/02/[address] 08/19/2014 History of pulmonary [...] mRNA, LNP-s, No Pre serve, 2-Dose Series ([employer]) 12/29/2020,12/18/2020 Pneumococcal Polysaccharide PPV23 (Pneumovax) 08/22/2009,06/15/2006 Seasonal [...] hx of : 08/19/09 Vena cava filter/ligation/clip [place] filter placement through the right femoral 08/19/[address] Lerma at [facility] * Telephone Encounter - [facility] Spool Cleaner - 01/18/2022 1:49 PM EDT Returned patient's [...] Visit Family Medicine Kevin Whiteside DO [address] [place] [address] 01/21/2022 Office Visit Pharmacy [facility] [place] [address] [place] [address] 02/02/2022 Home Visit Family Medicine Magaly Morales, Community Health Multi Slide Machine Tender [address] [place] [address] 02/03/2022 Office Visit Nephrology Erik Lenz MD [address] [place] [address] 02/18/2022 Office Visit Pulmonary Nikita Sanchez MD [address] [place] [address] 02/23/2022 Home Visit [facility] Vera Capellan, RN 132 [place] [address] 03/08/2022 Imaging Radiology 03/12/2022 Office Visit Family Medicine Lexii Andujar, DO [address] [place] [address] 04/05/2022 Office Visit Cardiology Marjorie Powell PA-C 132 [facility] [place] [address] 04/14/2022 Nurse Only Ancillary College, Nurse Annual Wellness Visit [address] [place] [address] Scheduled Procedures Name Priority Associated Diagnoses Date/Ti [...] Additional history exists CKD GFR USE SMARTSET 29920 07/09/202201/07, 12/26/2021, 12/07/2021, Additional history exists DIABETES-HGBA1C EVERY 6 MONTHS 07/09/2022 01/07/2022, 11/17/2020, 01/23/2020, Additional history exists BASIC METABOLIC PANEL (BMP) FOR HTN YEARLY 01/07/2023 01/07/2022, 12/26/2021, 12/07/2021, Additional history exists CKD HGB USE SMARTSET 99562 01/07/202301/07, 01/07/2022, 12/26/2021, Additional history exists CKD PHOS USE SMARTSET 02110 01/07/202312/25, 03/12/2021, 11/17/2020, Additional history exists DIABETES-FOOT [...] Documents on File Type Date Recorded Patient Carton 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
--- OUTSIDE RECORDS SUMMARY | 2023-06-01 04:40 | External Medical Summary | Summary of Care ---
Author Name Unknown Organization [place] [address] Care Team Providers Care Fleet Manager Name Role Phone Ziaandrews Galdino Neal DO Primary Care Provider [phone] Encounter Details Date Type Department Care Team Description 01/22/2022 Documentation HEALTH & WELLNESS Kierra Woods, Health Panel Builder Allergies Active Allergy Reactions Severity Noted Date Comments Codeine 07/08/2014 hallucination Pollen 05/18/2019 Heparin 09/04/2009 Heparin Induced Thrombocytopenia Hydrocodone Neuro complications (Please comment) 07/28/2020 Empagliflozin Other (Please comment) Medium 05/17/2018 3 yeast infections in 6 weeks after starting Morphine And Related 09/16/1997 Hallucinations Tetanus Toxoid Other (Please comment) 06/15/2011 Passed out documented as of this encounter (statuses as of 01/22/2022) Medications Medication Sig Dispensed Refills Start Date [...] 90 Cap 3 12/18/2019 Active DIURETIC TITRATION PLANIndications: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 Atherosclerosis of [place] coronary arter y without angina pectoris 12/31/2021 [...] 03/25/2016 Fibromyalgia 02/02/2016 Abnormality of gait 02/02/[address] 08/19/2014 History of pulmonary [...] as of this encounter (statuses as of 01/22/2022) Resolved Problems Problem Noted Date Resolved Date [...] as of this encounter (statuses as of 01/22/2022) Immunizations Name Administration Dates Next Due COVID-19 mRNA, LNP-s, No Pre serve, 2-Dose Series ([employer]) 12/29/2020,12/18/2020 Pneumococcal Polysaccharide PPV23 (Pneumovax) 08/22/2009,06/15/2006 [...] encounter Progress Notes * [facility] Panel Builder - 01/22/2022 1:53 PM EDT Images from the original note were not included. 1. Chair Stand (30 seconds): Followed Protocol: Yes, Result 9x 2. Arm Curls (30 seconds): Followed Protocol: Yes, Result: Right 5lbs x20, Left 5lbs x21 3. Two Minute March: Followed Protocol: No, bad back and knee. Can't stand for long. Short of breath. 4. Chair Sit and Reach (nearest 1/2 inch: +/-): Followed Protocol: Yes, Result: Right -4.5, Left -4.5 5. Back Stretch (nearest 1/2 inch: +/-): Followed Protocol: Yes, Result: Right -9, Left unable due to broken elbow 1+ years ago 6. 8 Foot Up-and-Go (nearest 1/10th of a second): Followed Protocol: Yes, Result: Test 1 17.8, Test 2 One attempt - shortness of breath Goals: - Improve strength - Improve endurance - Improve balance Patient is interested in using the fitness facility to improve endurance, strength and balance. Shewears oxygen 18/04. SO2 levels ranged from 86-90% during exercise. After the assessment, patient noticed that she didn't have her oxygen turned on while doing the assessment. Her SO2 resting with oxygen on was 93%. She is interested in one-on-one exercise sessions and is scheduled for 01/25/22 at 3:30p.m. documented in this encounter Plan of Treatment Upcoming Encounters Date Type Specialty Care Team Description 02/02/2022 Home Visit Family Medicine Magaly Morales, Community Health Plasterer Spray Gun [address] [place] [address] 02/03/2022 Office Visit Nephrology Erik Lezn MD 200 [place] [address] 02/04/2022 Pharmacy Pharmacy [address] [place] [address] 02/18/2022 Office Visit Pulmonary Nikita Sanchez MD [address] [place] [address] 02/23/2022 [facility] Visit [facility] Vera Capellan RN 132 [facility] [place] [address] 03/08/2022 Imaging Radiology 03/12/2022 Office Visit Family Medicine Galdino Andujar, DO 293 [place] [address] 04/05/2022 Office Visit Cardiology Marjorie Powell PA-C 132 [facility] [place] [address] 04/14/2022 Nurse Only Ancillary College, Nurse Annual Wellness Visit [address] [place] [address] Scheduled Procedures Name Priority Associated Diagnoses Date/Ti [...] Additional history exists CKD GFR USE SMARTSET 71507 07/09/202201/07, 12/26/2021, 12/07/2021, Additional history exists DIABETES-HGBA1C EVERY 6 MONTHS 07/09/2022 01/07/2022, 11/17/2020, 01/23/2020, Additional history exists BASIC METABOLIC PANEL (BMP) FOR HTN YEARLY 01/07/2023 01/07/2022, 12/26/2021, 12/07/2021, Additional history exists CKD HGB USE SMARTSET 36443 01/07/202301/07, 01/07/2022, 12/26/2021, Additional history exists CKD PHOS USE SMARTSET 51856 01/07/2023 04/12/2021, 03/12/2021, 11/17/2020, Additional history exists [...] Documents on File Type Date Recorded Patient Merchandising Execution Manager Expl anation Advanced Directive Advanced Directive [...] Camp Other Health Care Hayden r of Restaurant Front Manager Princess Allen Other Health Care Pow er of Restaurant Front Manager Care Teams Fleet Manager Relationship Specialty Start Date End Date Galdino Andujar, DO [address] [place] [address] PCP - General Internal Medicine 01/07/22 documented as of this encounter
--- OUTSIDE RECORDS SUMMARY | 2023-06-01 04:41 | External Medical Summary | Summary of Care ---
Author Name Unknown Organization [place] [address] Care Team Providers Care Assembly Inspector Helper Name Role Phone Galdino Andujar DO Primary Care Provider [phone] Reason for Visit * Reason Onset Date Comments Appointment 01/18/2022 Encounter Details Date Type Department Care Team Description 01/18/2022 Telephone Family Practice 65 [facility] [place] [address] [place] [address] Galdino Andujar DO [address] [place], [place] [phone] Appointment Allergies Active Allergy Reactions Severity Noted [...] 90 Cap 3 12/18/2019 Active DIURETIC TITRATION PLANIndications:Jig Maker 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 1 Each 0 04/08/2020 Active Blood Glucose Monitoring Suppl (SmartyPants Vitamins ULTRA 2) w/Device KIT Use to test [...] CPAP every night at bedtime. 0 Active Gabapentin 300 MG Oral Capsule (Neurontin) Take 300 mg by mouth 2 times a day. 0 Active metOLazone 2.5 MG Oral Tablet [...] of 7.0%-8.0% ([facility]) Inject 40 units with meals + sliding scale 1 units for every 25 units BG > 150. 121 mL 3 11/04/2021 Active Tresiba FlexTouch 100 UNIT/ML Subcutaneous Solution Pen-injector (Insulin Degludec)Indications :Type 2 diabetes mellitus with hemoglobin A1c goal of 7.0%-8.0% ([facility]) Inject under the skin [...] day . 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 Lerma at [facility] * Telephone Encounter - [facility] Sap Business Analyst - 01/18/2022 1:49 PM EDT Returned patient's [...] Family Medicine Kevin Whiteside DO [address] [place] [address] 01/21/2022 Office Visit Pharmacy [facility] [place] [address] [place] [address] 02/02/2022 Home Visit Family Medicine Magaly Morales, Community Health Assistant Secretary [address] [place] [address] 02/03/2022 Office Visit Nephrology Erik Lenz MD 200 [facility] [place] [address] 02/18/2022 Office Visit Pulmonary Nikita Sanchez MD [address] [place] [id number] 02/23/2022 Home Visit [facility] Vera Capellan RN [address] [place] [address] 03/08/2022 Imaging Radiology 03/12/2022 Office Visit Family Medicine Galdino Andujar, DO 293 [place] [address] 04/05/2022 Office Visit Cardiology Marjorie Powell PA-C 132 [facility] [place] [address] 04/14/2022 Nurse Only Ancillary College, Nurse Annual Wellness Visit [address] [place] [address] Scheduled Procedures Name Priority Associated Diagnoses Date/Ti [...] Additional history exists CKD GFR USE SMARTSET 46566 07/09/202201/07, 12/26/2021, 12/07/2021, Additional history exists DIABETES-HGBA1C EVERY 6 MONTHS 07/09/2022 01/07/2022, 11/17/2020, 01/23/2020, Additional history exists BASIC METABOLIC PANEL (BMP) FOR HTN YEARLY 01/07/2023 01/07/2022, 12/26/2021, 12/07/2021, Additional history exists CKD HGB USE SMARTSET 60096 01/07/202301/07, 01/07/2022, 12/26/2021, Additional history exists CKD PHOS USE SMARTSET 83381 01/07/2023 0412/2021, 03/12/2021, 11/17/2020, Additional history exists [...] Documents on File Type Date Recorded 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
--- OUTSIDE RECORDS SUMMARY | 2023-06-01 04:41 | External Medical Summary | Summary of Care ---
Author Name Unknown Organization [place] [address] Care Team Providers Care Automobile Mechanic Assistant Name Role Phone Galdino Andujar DO Primary Care Provider [phone] Reason for Visit * Reason Onset Date Comments Other 01/15/2022 Encounter Details Date Type Department Care Team Description 01/15/2022 Telephone Family Practice 65 [facility] [place] [address] [place] [address] Galdino Andujar DO [address] [place] [address] Other Allergies Active Allergy Reactions Severity Noted Date Comments Codeine 07/08/2014 hallucination Pollen 05/18/2019 Heparin 09/04/2009 Heparin Induced Thrombocytopenia Hydrocodone Neuro complications (Please comment) 07/28/2020 Empagliflozin Other (Please comment) Medium 05/17/2018 3 yeast infections in 6 weeks after starting Morphine And Related 09/16/1997 Hallucinations Tetanus Toxoid Other (Please comment) 06/15/2011 Passed out documented as of this encounter (statuses as of 01/15/2022) Medications Medication Sig Dispensed Refills Start Date [...] 90 Cap 3 12/18/2019 Active DIURETIC TITRATION PLANIndications:Materials Director 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 1 Each 0 04/08/2020 Active Blood Glucose Monitoring Suppl ([employer] ULTRA 2) w/Device KIT Use to [...] as of this encounter (statuses as of 01/15/2022) Active Problems Problem Noted Date Encounter for [...] as of this encounter (statuses as of 01/15/2022) Resolved Problems Problem Noted Date Resolved Date [...] as of this encounter (statuses as of 01/15/2022) Immunizations Name Administration Dates Next Due COVID-19 mRNA, LNP-s, No Pre serve, 2-Dose Series ([employer]) 12/29/2020,12/18/2020 Pneumococcal Polysaccharide PPV23 (Pneumovax) 08/22/2009,06/15/2006 Seasonal [...] * Telephone Encounter - [facility] Agricultural Education Teacher - 01/15/2022 3:15 PM EDT Called patient to see if she wanted to reschedule her fitness assessment since she cancelled this morning. She is scheduled for 01/18/22 at 1:45 p.m. * Telephone Encounter - ELISSA Salguero - 01/15/2022 11:03 AM EDT PT called she will be unable to come to appt today with recovery coordinator. documented in this encounter Plan of Treatment Upcoming Encounters Date Type Specialty Care Team Description 01/21/2022 Office Visit Family Medicine Kevin Whiteside DO [address] [place] [address] 01/21/2022 Office Visit Pharmacy [facility] [place] [address] [place] [address] 02/02/2022 Home Visit Family Medicine Magaly Morales, Community Health Information Services Tech [address] [place] [address] 02/03/2022 Office Visit Nephrology Erik Lenz MD 200 [place] [address] 02/18/2022 Office Visit Pulmonary Nikita Sanchez MD [address] [facility] [address] 02/23/2022 [facility] Vera Capellan, RN 132 [place] [address] 03/08/2022 Imaging Radiology 03/12/2022 Office Visit Family Medicine Galdino Andujar, DO 293 [place] [address] 04/05/2022 Office Visit Cardiology Marjorie Powell PA-C 132 [facility] [place] [address] 04/14/2022 Nurse Only Ancillary College, Nurse Annual Wellness Visit [address] [place] [address] Scheduled Procedures Name Priority Associated Diagnoses Date/Ti [...] Additional history exists CKD GFR USE SMARTSET 29723 07/09/202201/07, 12/26/2021, 12/07/2021, Additional history exists DIABETES-HGBA1C EVERY 6 MONTHS 07/09/2022 01/07/2022, 11/17/2020, 01/23/2020, Additional history exists BASIC METABOLIC PANEL (BMP) FOR HTN YEARLY 01/07/2023 01/07/2022, 12/26/2021, 12/07/2021, Additional history exists CKD HGB USE SMARTSET 39134 01/07/202301/07, 01/07/2022, 12/26/2021, Additional history exists CKD PHOS USE SMARTSET 37717 01/07/2023 04/12/2021, 03/12/2021, 11/17/2020, Additional history exists [...] Documents on File Type Date Recorded Patient Taxi Driver Expl anation Advanced Directive Advanced Directive Advanced [...] Camp Other Health Care Hayden r of School Photographs Detailer Princess Allen Other Health Care Pow er of School Photographs Detailer Care Teams Automobile Mechanic Assistant Relationship Specialty Start Date End Date Galdino Andujar, DO [address] [place] [address] PCP - General Internal Medicine 01/07/22 documented as of this encounter
--- OUTSIDE RECORDS SUMMARY | 2023-06-01 04:41 | External Medical Summary | Summary of Care ---
Author Name Unknown Organization [place] [address] Care Team Providers Care Stitcher Special Machine Name Role Phone Lexii Andujar DO Primary Care Provider [phone] Reason for Visit * Reason Onset Date Comments Appointment 01/18/2022 Encounter Details Date Type Department Care Team Description 01/18/2022 Telephone Family Practice [address] [facility] [place] [address] [place] [address] Lexii Andujar DO [address] [place], [place] [id number] Appointment Allergies Active Allergy Reactions Severity Noted [...] 0 04/08/2020 Active Blood Glucose Monitoring Suppl ([employer] ULTRA 2) w/Device KIT Use to test [...] mellitus with hemoglobin A1c goal of 7.0%-8.0% ([facility]) Inject 40 units with meals + sliding scale 1 units for every 25 units BG > 150. 121 mL 11/04/2021 Active Tresiba FlexTouch 100 UNIT/ML Subcutaneous Solution Pen-injector (Insulin Degludec)Indication s:Type 2 diabetes mellitus with hemoglobin A1c goal of 7.0%-8.0% ([facility]) Inject under the skin 60 Units in [...] 03/25/2016 Fibromyalgia 02/02/2016 Abnormality of gait 02/02/[address] 08/19/2014 History of pulmonary [...] mRNA, LNP-s, No Pre serve, 2-Dose Series (Enomaly) 12/29/2020,12/18/2020 Pneumococcal Polysaccharide PPV23 (Pneumovax) 08/22/2009,06/15/2006 Seasonal [...] hx of : 08/19/09 Vena cava filter/ligation/clip [place] filter placement through the right femoral 08/19/[address] Lerma at [facility] * Telephone Encounter - [facility] Senior Cost Estimator - 01/18/2022 1:49 PM EDT Returned patient's [...] Medicine Kevin Whiteside DO [address] [place] [address] 01/21/2022 Office Visit [facility]acy [facility] [place] [address] [address] 02/02/2022 Home Visit Family Medicine Magaly Morales, Community Health Leave Manager [address] [place] [address] 02/03/2022 Office Visit Nephrology Erik Lenz MD [address] [facility] [place] [address] 02/18/2022 Office Visit Pulmonary Nikita Sanchez MD [address] [place] [address] 02/23/2022 [facility] Visit [facility] Vera Capellan RN [address] [place] [address] 03/08/2022 Imaging Radiology 03/12/2022 Office Visit Family Medicine Lexii Andujar, 293 [place] [address] 04/05/2022 Office Visit Cardiology Marjorie oPwell PA-C 132 [place] [address] 04/14/2022 Nurse Only Ancillary College, Nurse Annual Wellness Visit [address] [place] [address] Scheduled Procedures Name Priority Associated Diagnoses Date/Ti [...] Additional history exists CKD GFR USE SMARTSET 88013 07/09/202201/07, 12/26/2021, 12/07/2021, Additional history exists DIABETES-HGBA1C EVERY 6 MONTHS 07/09/2022 01/07/2022, 11/17/2020, 01/23/2020, Additional history exists BASIC METABOLIC PANEL (BMP) FOR HTN YEARLY 01/07/2023 01/07/2022, 12/26/2021, 12/07/2021, Additional history exists CKD HGB USE SMARTSET 50116 01/07/202301/07, 01/07/2022, 12/26/2021, Additional history exists CKD PHOS USE SMARTSET 40873 01/07/2023 04/12/2021, 03/12/2021, 11/17/2020, Additional history exists [...] Documents on File Type Date Recorded Patient Flotation Tender Expl anation Advanced Directive Advanced Directive [...] Camp Other Health Care Hayden r of Program Aide Princess Allen Other Health Care Pow er of Program Aide Care Teams Stitcher Special Machine Relationship Specialty Start Date End Date Lexii Andujar, DO 293 [place] [address] PCP - General Internal Medicine 01/07/22 documented as of this encounter
--- OUTSIDE RECORDS SUMMARY | 2023-06-01 04:41 | External Medical Summary | Summary of Care ---
Author Name Unknown Organization [place] [address] Care Team Providers Care Shipwright Supervisor Name Role Phone Lexii Andujar DO Primary Care Provider [phone] Reason for Visit * Reason Onset Date Comments Appointment 01/18/2022 Encounter Details Date Type Department Care Team Description 01/18/2022 Telephone Family Practice 65 [facility] [place] [address] [place] [address] Lexii Andujar DO [address] [place], [place] [phone] Appointment Allergies Active Allergy Reactions Severity Noted [...] 0 04/08/2020 Active Blood Glucose Monitoring Suppl (isango! ULTRA 2) w/Device KIT Use to test [...] of 7.0%-8.0% ([facility]) Inject 40 units with meals + sliding scale 1 units for every 25 units BG > 150. 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 Lerma at [facility] * Telephone Encounter - [facility] Punch Press Operator - 01/18/2022 1:49 PM EDT Returned patient's [...] Medicine Kevin Whiteside DO [address] [address] 01/21/2022 Office Visit Pharmacy [facility] [place] [address] [address] 02/02/2022 Home Visit Family Medicine Magaly Morales, Community Health Rvda Master Certified Rv Technician [address] [place] [address] 02/03/2022 Office Visit Nephrology Erik Lenz MD [address] [place] [address] 02/18/2022 Office Visit Pulmonary Nikita Sanchez MD [address] [place] [address] 02/23/2022 Home Visit [facility] Vera Capellan, RN [address] [place] [address] 03/08/2022 Imaging Radiology 03/12/2022 Office Visit Family Medicine Lexii Andujar, DO [address] [place] [address] 04/05/2022 Office Visit Cardiology Marjorie Powell PA-C 132 [place] [address] 04/14/2022 Nurse Only Ancillary College, Nurse Annual Wellness Visit [address] [place] [address] Scheduled Procedures Name Priority Associated Diagnoses Date/Ti [...] Additional history exists CKD GFR USE SMARTSET 71281 07/09/202201/07, 12/26/2021, 12/07/2021, Additional history exists DIABETES-HGBA1C EVERY 6 MONTHS 07/09/2022 01/07/2022, 11/17/2020, 01/23/2020, Additional history exists BASIC METABOLIC PANEL (BMP) FOR HTN YEARLY 01/07/2023 01/07/2022, 12/26/2021, 12/07/2021, Additional history exists CKD HGB USE SMARTSET 38453 01/07/202301/07, 01/07/2022, 12/26/2021, Additional history exists CKD PHOS USE SMARTSET 97949 01/07/202312/25, 03/12/2021, 11/17/2020, Additional history exists DIABETES-FOOT [...] Documents on File Type Date Recorded Patient Saw Superintendent Expl anation Advanced Directive Advanced Directive [...] Camp Other Health Care Hayden r of Overhead Crane Operator Princess Allen Other Health Care Pow er of Overhead Crane Operator Care Teams Shipwright Supervisor Relationship Specialty Start Date End Date Lexii Andujar, DO [address] [place] [address] PCP - General Internal Medicine 01/07/22 documented as of this encounter
--- OUTSIDE RECORDS SUMMARY | 2023-06-01 04:41 | External Medical Summary | Summary of Care ---
Author Name Unknown Organization [place] [address] Care Team Providers Care Spring Tester Name Role Phone Galdino Andujar DO Primary Care Provider [phone] Reason for Visit * Reason Onset Date Comments Appointment 01/18/2022 Encounter Details Date Type Department Care Team Description 01/18/2022 Telephone Family Practice 65 [facility] [place] [address] [place] [address] Galdino Andujar DO [address] [place], [place] [phone] Appointment Allergies Active Allergy Reactions Severity Noted Date Comments Codeine 07/08/2014 hallucination Pollen 05/18/2019 Heparin 09/04/2009 Heparin Induced Thrombocytopenia Hydrocodone Neuro complications (Please comment) 07/28/2020 Empagliflozin Other (Please comment) Medium 05/17/2018 3 yeast infections in 6 weeks after starting Morphine And Related 09/16/1997 Hallucinations Tetanus Toxoid Other (Please comment) 06/15/2011 Passed out documented as of this encounter (statuses as of 01/18/2022) Medications Medication Sig Dispensed Refills Start Date [...] 90 Cap 3 12/18/2019 Active DIURETIC TITRATION PLANIndications:Gasoline Engine Inspector 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 1 Each 0 04/08/2020 Active Blood Glucose Monitoring Suppl (Ludi ULTRA 2) w/Device KIT Use to test [...] goal of 7.0%-8.0% ([facility]) Inject 40 units with meals + sliding scale 1 units for every 25 units BG > 150. 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 Lerma at [facility] * Telephone Encounter - [facility] Embedded Software Design Engineer - 01/18/2022 1:49 PM EDT Returned patient's [...] Visit Family Medicine Kevin Whiteside DO 132 [facility] [place] [address] 01/21/2022 Office Visit Pharmacy [facility] [place] 132 [facility] [place] [address] 02/02/2022 Home Visit Family Medicine Magaly Morales, Community Health Animal Sitter [address] [place] [address] 02/03/2022 Office Visit Nephrology Erik Lenz MD [address] [place] [facility] [place] [address] 02/18/2022 Office Visit Pulmonary Nikita Sanchez MD [address] [place] [address] 02/23/2022 [facility]an [facility] [address] 03/08/2022 Imaging Radiology 03/12/2022 Office Visit Family Medicine Galdino Andujar, DO 293 [facility] [place] [address] 04/05/2022 Office Visit Cardiology Marjorie Powell PA-C 132 [place] [address] 04/14/2022 Nurse Only Ancillary College, Nurse Annual Wellness Visit [address] [facility] [place] [address] Scheduled Procedures Name Priority Associated Diagnoses Date/Ti [...] Additional history exists CKD GFR USE SMARTSET 58622 07/09/202201/07, 12/26/2021, 12/07/2021, Additional history exists DIABETES-HGBA1C EVERY 6 MONTHS 07/09/2022 01/07/2022, 11/17/2020, 01/23/2020, Additional history exists BASIC METABOLIC PANEL (BMP) FOR HTN YEARLY 01/07/2023 01/07/2022, 12/26/2021, 12/07/2021, Additional history exists CKD HGB USE SMARTSET 58820 01/07/202301/07, 01/07/2022, 12/26/2021, Additional history exists CKD PHOS USE SMARTSET 83035 01/07/202312/25, 03/12/2021, 11/17/2020, Additional history exists DIABETES-FOOT [...] Documents on File Type Date Recorded Patient Weight Inspector Expl anation Advanced Directive Advanced Directive [...] Camp Other Health Care Hayden r of Hard Metals Engraver Hand Princess Allen Other Health Care Pow er of Hard Metals Engraver Hand Care Teams Spring Tester Relationship Specialty Start Date End Date Galdino Andujar, DO [address] [place] [address] PCP - General Internal Medicine 01/07/22 documented as of this encounter
--- OUTSIDE RECORDS SUMMARY | 2023-06-01 04:41 | External Medical Summary | Summary of Care ---
Author Name Unknown Organization [place] [address] Care Team Providers Care Pulp Plant Supervisor Name Role Phone Lexii Andujar DO Primary Care Provider [phone] Reason for Visit * Reason Onset Date Comments Appointment 01/18/2022 Encounter Details Date Type Department Care Team Description 01/18/2022 Telephone Family Practice 65 [facility] [place] [address] [place] [address] Lexii Andujar DO [address] [place], [place] [phone] Appointment Allergies Active Allergy Reactions Severity Noted [...] 0 04/08/2020 Active Blood Glucose Monitoring Suppl ([employer] ULTRA 2) w/Device KIT Use to test [...] 03/25/2016 Fibromyalgia 02/02/2016 Abnormality of gait 02/02/[address] 08/19/2014 History of pulmonary [...] mRNA, LNP-s, No Pre serve, 2-Dose Series ([employer]) 12/29/2020,12/18/2020 Pneumococcal Polysaccharide PPV23 (Pneumovax) 08/22/2009,06/15/2006 Seasonal [...] pharmacy. Thank you * Telephone Encounter - aMriam Ray RN - 01/18/2022 2:34 PM EDT [...] hx of : 08/19/09 Vena cava filter/ligation/clip [place] filter placement through the right femoral 08/19/[address] Lerma at [facility] * Telephone Encounter - [facility] Plant Inspector - 01/18/2022 1:49 PM EDT Returned patient's [...] Medicine Kevin Whiteside DO [address] [address] 01/21/2022 Office Visit Pharmacy [facility] [place] [address] [address] 02/02/2022 Home Visit Family Medicine Magaly oMrales, Community Health Document Examiner [address] [place] [address] 02/03/2022 Office Visit Nephrology Erik Lenz MD [address] [place] [address] 02/18/2022 Office Visit Pulmonary Nikita Sanchez MD [address] [place] [address] 02/23/2022 [facility] Visit [facility] Vera Capellan, RN [address] [place] [address] 03/08/2022 Imaging Radiology 03/12/2022 Office Visit Family Medicine Lexii Andujar, DO [address] [place] [address] 04/05/2022 Office Visit Cardiology Marjorie Powell PA-C 132 [place] [address] 04/14/2022 Nurse Only Ancillary College, Nurse Annual Wellness Visit [address] [place] [address] Scheduled Procedures Name Priority Associated Diagnoses Date/Ti [...] Additional history exists CKD GFR USE SMARTSET 10358 07/09/202201/07, 12/26/2021, 12/07/2021, Additional history exists DIABETES-HGBA1C EVERY 6 MONTHS 07/09/2022 01/07/2022, 11/17/2020, 01/23/2020, Additional history exists BASIC METABOLIC PANEL (BMP) FOR HTN YEARLY 01/07/2023 01/07/2022, 12/26/2021, 12/07/2021, Additional history exists CKD HGB USE SMARTSET 83994 01/07/202301/07, 01/07/2022, 12/26/2021, Additional history exists CKD PHOS USE SMARTSET 27690 01/07/202312/25, 03/12/2021, 11/17/2020, Additional history exists DIABETES-FOOT [...] Documents on File Type Date Recorded Patient Pumper Head Expl anation Advanced Directive Advanced Directive Advanced [...] Other Health Care Hayden r of Software Validation Engineer Princess Allen Other Health Care Pow er of Software Validation Engineer Care Teams Pulp Plant Supervisor Relationship Specialty Start Date End Date Lexii Andujar, DO [address] [place] [address] PCP - General Internal Medicine 01/07/22 documented as of this encounter
--- OUTSIDE RECORDS SUMMARY | 2023-06-01 04:41 | External Medical Summary | Summary of Care ---
Author Name Unknown Organization [place] [address] Care Team Providers Care Business Technology Teacher Name Role Phone Galdino Andujar DO Primary Care Provider [phone] Reason for Visit * Reason Onset Date Comments Appointment 01/18/2022 Encounter Details Date Type Department Care Team Description 01/18/2022 Telephone Family Practice 65 [facility] [place] [address] [place] [address] Galdino Andujar DO [address] [place], [place] [phone] Appointment Allergies Active Allergy Reactions Severity Noted [...] Cap 3 12/18/2019 Active DIURETIC TITRATION PLANIndications:In Home Sales 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 1 Each 0 04/08/2020 Active Blood Glucose Monitoring Suppl (5by ULTRA 2) w/Device KIT Use to test [...] mRNA, LNP-s, No Pre serve, 2-Dose Series (StrongLoop) 12/29/2020,12/18/2020 Pneumococcal Polysaccharide PPV23 (Pneumovax) 08/22/2009,06/15/2006 Seasonal [...] * Telephone Encounter - [facility] Bankruptcy Manager - 01/18/2022 1:49 PM EDT Returned patient's [...] Visit Family Medicine Kevin Whiteside DO 132 [facility] [place] [address] 01/21/2022 Office Visit [facility]acy [facility] [place] 132 [facility] [place] [address] 02/02/2022 Home Visit Family Medicine Magaly Morales, Community Health Polyethylene Bag Machine Operator [address] [place] [address] 02/03/2022 Office Visit Nephrology Erik Lenz MD 200 [place] [address] 02/18/2022 Office Visit Pulmonary Nikita Sanchez MD [address] [place] [address] 02/23/2022 [facility] Visit [facility] Vera Capellan, RN 132 [place] [address] 03/08/2022 Imaging Radiology 03/12/2022 Office Visit Family Medicine Galdino Andujar, DO 293 [facility] [place] [address] 04/05/2022 Office Visit Cardiology [facility] Powell [facility]-C [facility] [address] 04/14/2022 Nurse Only Ancillary College, Nurse Annual Wellness Visit [address] [facility] [place] [address] Scheduled Procedures Name Priority Associated Diagnoses Date/Ti [...] Additional history exists CKD GFR USE SMARTSET 18457 07/09/202201/07, 12/26/2021, 12/07/2021, Additional history exists DIABETES-HGBA1C EVERY 6 MONTHS 07/09/2022 01/07/2022, 11/17/2020, 01/23/2020, Additional history exists BASIC METABOLIC PANEL (BMP) FOR HTN YEARLY 01/07/2023 01/07/2022, 12/26/2021, 12/07/2021, Additional history exists CKD HGB USE SMARTSET 75272 01/07/202301/07, 01/07/2022, 12/26/2021, Additional history exists CKD PHOS USE SMARTSET 02853 01/07/2023 04/12/2021, 03/12/2021, 11/17/2020, Additional history exists [...] Documents on File Type Date Recorded Patient Spray Drier Operator Helper Expl anation Advanced Directive Advanced [...] Camp Other Health Care Hayden r of Reflector Driller And Deburrer Princess Allen Other Health Care Pow er of Reflector Driller And Deburrer Care Teams Business Technology Teacher Relationship Specialty Start Date End Date Galdino Andujar, DO [address] [place] [address] PCP - General Internal Medicine 01/07/22 documented as of this encounter
--- OUTSIDE RECORDS SUMMARY | 2023-06-01 04:42 | External Medical Summary | Summary of Care ---
Author Name Unknown [place] [address] Care Team Providers Care Md Urologist Name Role Phone Galdino Andujar DO Primary Care Provider [phone] Reason for Visit * Reason Onset Date Comments Test Results 01/08/2022 Encounter Details Date Type Department Care Team Description 01/08/2022 Telephone Family Practice 65 [facility] [place] [address] [place] [address] Galdino Andujar DO [address] [place] [address] Test Results Allergies Active Allergy Reactions Severity Noted Date Comments Codeine 07/08/2014 hallucination Pollen 05/18/2019 Heparin 09/04/2009 Heparin Induced Thrombocytopenia Hydrocodone Neuro complications (Please comment) 07/28/2020 Empagliflozin Other (Please comment) Medium 05/17/2018 3 yeast infections in 6 weeks after starting Morphine And Related 09/16/1997 Hallucinations Tetanus Toxoid Other (Please comment) 06/15/2011 Passed out documented as of this encounter (statuses as of 01/08/2022) Medications Medication Sig Dispensed Refills Start Date [...] 90 Cap 3 12/18/2019 Active DIURETIC TITRATION PLANIndications:Manager Client Service 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 1 Each 0 04/08/2020 Active Blood Glucose Monitoring Suppl ([employer] ULTRA 2) w/Device KIT Use to test [...] ([facility]) Inject under the skin 60 Units in the morning. 45 mL 3 11/04/2021 Active Apixaban 5 MG Oral Tablet (Eliquis) Take by mouth 10 mg in the morning AND 10 mg before bedtime. 10mg twice a day x 7 days then 5mg twice a day . 0 Active clonazePAM 0.5 MG Oral Tablet (KlonoPIN)Indication s:Anxiety state Take by mouth 1 Tablet in the morning AND 1 Tablet before bedtime. 60 Tablet 0 12/31/2021 Active traMADol HCl 50 MG Oral Tablet (Ultram)Indications: Chronic pain syndrome Take by mouth 1 Tablet every 8 hours as needed for Pain, Severe. 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 Thank you * Telephone Encounter - ELISSA Salguero - 01/08/2022 9:37 AM EDT Patient returned call. Transferred patient back to nurse. * Telephone Encounter - Shira Gross LPN - 01/08/2022 9:33 AM EDT Called, left message for patient to return call. Thank you * Telephone Encounter - Shira Gross LPN - 01/08/2022 9:32 AM EDT ----- Message from Galdino Andujar DO sent at 01/08/2022 9:18 AM EDT ----- Hgba1c has improved to 7.8 CKD is stable Continue current medications documented in this encounter Plan of Treatment Upcoming Encounters Date Type Specialty Care Team Description 01/12/2022 [facility] Visit [facility] Vera Capellan RN [address] [place] [address] 01/21/2022 Office Visit Family Medicine Kevin Whiteside DO [address] [place] [address] 01/21/2022 Office Visit Pharmacy [facility] [place] [address] [place] [address] 02/03/2022 Office Visit Nephrology Erik Lenz MD [address] [facility] [place] [address] 02/18/2022 Office Visit Pulmonary Nikita Sanchez MD [address] [place] [address] 03/08/2022 Imaging Radiology 03/12/2022 Office Visit Family Medicine Galdino Andujar, 293 [place] [address] 04/05/2022 Office Visit Cardiology [facility] Powell [facility]C [facility] [address] 04/14/2022 Nurse Only Ancillary College, Nurse Annual Wellness Visit [address] [place] [address] Scheduled Procedures Name Priority Associated Diagnoses Date/Ti [...] Additional history exists CKD GFR USE SMARTSET 55012 07/09/202201/07, 12/07/2021, 11/27/2021, Additional history exists DIABETES-HGBA1C EVERY 6 MONTHS 07/09/2022 01/07/2022, 11/17/2020, 01/23/2020, Additional history exists BASIC METABOLIC PANEL (BMP) FOR HTN YEARLY 01/07/2023 01/07/2022, 12/07/2021, 11/27/2021, Additional history exists CKD HGB USE SMARTSET 34754 01/07/202301/07, 01/07/2022, 12/07/2021, Additional history exists CKD PHOS USE SMARTSET 67789 01/07/2023 04/12/2021, 03/12/2021, 11/17/2020, Additional history exists [...] Documents on File Type Date Recorded Patient Disease Case Manager Rn Expl anation Advanced Directive Advanced Directive Advanced [...] Camp Other Health Care Hayden r of Field Return Repairer Princess Allen Other Health Care Pow er of Field Return Repairer Care Teams Md Urologist Relationship Specialty Start Date End Date Galdino Andujar, DO 293 [place] [address] PCP - General Internal Medicine 01/07/22 documented as of this encounter
--- OUTSIDE RECORDS SUMMARY | 2023-06-01 04:42 | External Medical Summary | Summary of Care ---
Author Name Unknown Organization [facility] [place] [address] Care Team Providers Care Children'S Aide Name Role Phone Galdino Andujar DO Primary Care Provider [phone] Reason for Visit * Reason Onset Date Comments Other 01/08/2022 Encounter Details Date Type Department Care Team Description 01/08/2022 Telephone HEALTH & WELLNESS Kierra Woods, Health Freight Weigher Other Allergies Active Allergy Reactions Severity Noted [...] 90 Cap 3 12/18/2019 Active DIURETIC TITRATION PLANIndications:Endless Track Vehicle Mechanic 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 She is interested and is scheduled for a fitness assessment of 01/15/22 at 12:30 p.m. documented in this encounter Plan of Treatment Upcoming Encounters Date Type Specialty Care Team Description 01/12/2022 Home Visit [facility] Vera Capellan RN [address] [place] [address] 01/21/2022 Office Visit Family Medicine Kevin Whiteside DO [address] [place] [address] 01/21/2022 Office Visit Pharmacy [facility] Jer[place] [address] [place] [address] 02/03/2022 Office Visit Nephrology Erik Lenz MD [address] [place] [address] 02/18/2022 Office Visit Pulmonary Nikita Sanchez MD [address] [facility] [place] [address] 03/08/2022 Imaging Radiology 03/12/2022 Office Visit Family Medicine Galdino Andujar, DO [address] [facility] [place] [address] 04/05/2022 Office Visit Cardiology Marjorie Powell PA-C [address] [place] [address] 04/14/2022 Nurse Only [facility], Nurse Annual Wellness Visit [address] [place] [address] Scheduled Procedures Name Priority Associated Diagnoses Date/Ti [...] Additional history exists CKD GFR USE SMARTSET 60006 07/09/202201/07, 12/26/2021, 12/07/2021, Additional history exists DIABETES-HGBA1C EVERY 6 MONTHS 07/09/2022 01/07/2022, 11/17/2020, 01/23/2020, Additional history exists BASIC METABOLIC PANEL (BMP) FOR HTN YEARLY 01/07/2023 01/07/2022, 12/26/2021, 12/07/2021, Additional history exists CKD HGB USE SMARTSET 87120 01/07/202301/07, 01/07/2022, 12/26/2021, Additional history exists CKD PHOS USE SMARTSET 05971 01/07/202312/25, 03/12/2021, 11/17/2020, Additional history exists DIABETES-FOOT [...] Documents on File Type Date Recorded Patient Material Damage Adjuster Expl anation Advanced Directive Advanced Directive Advanced [...] Camp Other Health Care Hayden r of Adjunct Lecturer Princess Allen Other Health Care Pow er of Adjunct Lecturer Care Teams Children'S Aide Relationship Specialty Start Date End Date Galdino Andujar, DO [address] [place] [address] PCP - General Internal Medicine 01/07/22 documented as of this encounter
--- OUTSIDE RECORDS SUMMARY | 2023-06-01 04:42 | External Medical Summary | Summary of Care ---
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 documented in this encounter Plan of Treatment Upcoming Encounters Date Type Specialty Care Team Description 01/21/2022 Office Visit Family Medicine Kevin Whiteside DO [address] [place] [address] 01/21/2022 Office Visit Pharmacy [facility] Jeramie [address] [place] [address] 02/02/2022 Home Visit Family Medicine Magaly Morales, [facility] [place] [address] [place] [address] 02/03/2022 Office Visit Nephrology Erik Lenz MD [address] [place] [address] 02/18/2022 Office Visit Pulmonary Nikita Sanchez MD [address] [facility] [place] [address] 02/23/2022 Home Visit [facility] Vera Capellan RN [address] [place] [address] 03/08/2022 Imaging Radiology 03/12/2022 Office Visit Family Medicine Galdino Andujar DO [address] [place] [address] 04/05/2022 Office Visit Cardiology Marjorie Powell PA-C [address] [facility] [place] [address] 04/14/2022 Nurse Only [employer], Nurse Annual Wellness Visit [address] [place] [address] [place], [place] [address] Scheduled Procedures Name Priority Associated Diagnoses Date/Ti [...] Additional history exists CKD GFR USE SMARTSET 28690 07/09/202201/07, 12/26/2021, 12/07/2021, Additional history exists DIABETES-HGBA1C EVERY 6 MONTHS 07/09/2022 01/07/2022, 11/17/2020, 01/23/2020, Additional history exists BASIC METABOLIC PANEL (BMP) FOR HTN YEARLY 01/07/2023 01/07/2022, 12/26/2021, 12/07/2021, Additional history exists CKD HGB USE SMARTSET 51633 01/07/202301/07, 01/07/2022, 12/26/2021, Additional history exists CKD PHOS USE SMARTSET 97654 01/07/2023 04/12/2021, 03/12/2021, 11/17/2020, Additional history exists [...] Documents on File Type Date Recorded Patient Lure Maker Expl anation Advanced Directive Advanced Directive [...] Camp Other Health Care Hayden r of Aircraft Electrical Systems Specialist Princess Allen Other Health Care Pow er of Aircraft Electrical Systems Specialist Care Teams Detail Drafter Relationship Specialty Start Date End Date Galdino Andujar, DO [address] [place] [address] PCP - General Internal Medicine 01/07/22 documented as of this encounter
--- OUTSIDE RECORDS SUMMARY | 2023-06-01 04:42 | External Medical Summary | Summary of Care ---
Author Name Unknown Organization [facility] [place] [address] Care Team Providers Care Radar Scientist Name Role Phone Galdino Andujar DO Primary Care Provider [phone] Reason for Referral * Evaluate & Treat - Unlimited Visits (Within 10 days (routine)) - Authorized Specialty Diagnoses / Procedures Referred By Contac t Referred To Contact Pharmacist / Pharmacy Diagnoses Type 2 diabetes mellitus with stage 3b chronic kidney disease, with long-term current use of insulin ([facility]) Galdino Andujar DO [address] [place] [address] Referral ID Status Reason Start Date Expiration Date Visits Requested Visits Authorized [id number] Authorized Specialty Services Required 01/07/2022 99 99 Question Answer Referral Priority Within 10 days (routine) Department: Primary Care Reason for Referral: DM Target A1c: < 8 Comments Pharmacist Medication Therapy Management: Minimum frequency patient should be seen in person for medication management: as appropriate per clinical condition and patient status By my signature, I understand that my patient Stephanie Camp will have her medication therapy managed by the [facility] Med[facility] ([facility]) per established policies, procedures, and protocols. I also certify that this referral may serve as an initiation of service for the management of drug therapy in the above noted patient. [facility] providers will be responsible for scheduling patient visits, obtaining appropriate laboratory studies, and adjusting medication management therapy per patient's need, in addition to those roles spelled out in the clinic policy, procedures, and drug management protocols. I understand that the service provided by the [facility] is voluntary and have informed patient that they can refuse the service at their discretion. I am aware that the [facility] will provide me with a copy of the patient encounter via my [employer]. I authorize the [facility] to carry out these activities on my behalf. I consider this program to be a necessary part of the patient's medical care. 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, NYHA class 1 and CKD stage 3 (HCC); Chronic hypoxemic respiratory failure ([facility]); Type 2 diabetes mellitus with hemoglobin A1c goal of less than 8.0% ([facility]); Chronic diastolic congestive heart failure (HCC); Recurrent deep vein thrombosis (DVT) of both lower extremities ([facility]); ELLIE (generalized anxiety disorder); Postsurgical hypothyroidism; ELISSA (obstructive sleep apnea); History of pulmonary embolus (PE); Statin intolerance; Mild episode of recurrent major depressive disorder (HCC); Douglas filter in place; Gastroesophageal reflux disease with esophagitis without hemorrhage; Spinal stenosis of lumbar region without neurogenic claudication; Atherosclerosis of cabazon coronary artery of cabazon heart without angina pectoris; Encounter for screening mammogram for breast cancer; DM type 2 nursing care encounter (HCC); Encounter for long-term (current) use of medications Allergies Active Allergy Reactions Severity Noted Date Comments Codeine 07/08/2014 hallucination Pollen 05/18/2019 Heparin 09/04/2009 Heparin Induced Thrombocytopenia Hydrocodone Neuro complications (Please comment) 07/28/2020 Empagliflozin Other (Please comment) Medium 05/17/2018 3 yeast infections in 6 weeks after starting Morphine And Related 09/16/1997 Hallucinations Tetanus Toxoid Other (Please comment) 06/15/2011 Passed out documented as of this encounter (statuses as of 01/07/2022) Medications Medication Sig Dispensed Refills Start Date [...] 90 Cap 3 12/18/2019 Active DIURETIC TITRATION PLANIndications:Psych Coordinator 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 1 Each 0 04/08/2020 Active Blood Glucose Monitoring Suppl (3ROAM ULTRA 2) w/Device KIT Use to test [...] as of this encounter (statuses as of 01/07/2022) Active Problems Problem Noted Date Encounter for [...] induced thrombocytopenia (HIT) 0 12/31/2021 Atherosclerosis of cabazon coronary arter y without angina pectoris 12/31/2021 [...] 03/25/2016 Fibromyalgia 02/02/2016 Abnormality of gait 02/02/[address] 08/19/2014 History of pulmonary [...] as of this encounter (statuses as of 01/07/2022) Resolved Problems Problem Noted Date Resolved Date [...] as of this encounter (statuses as of 01/07/2022) Immunizations Name Administration Dates Next Due COVID-19 [...] Sign Reading Time Taken Comments Blood Pressure 110/66 01/07/2022 10:46 AM EDT Pulse 102 01/07/2022 10:46 AM EDT Temperature 36.6 C (97.9 F) 01/07/2022 10:46 AM E DT Respiratory Rate 16 01/07/2022 10:46 AM EDT Oxygen Saturation 99% 01/07/2022 10:46 AM EDT 3 L Inhaled Oxygen Concentration - - Weight 154.9 kg (341 lb 8 oz) 01/07/2022 10:46 A M EDT Height 165.1 cm (5' 5") 01/07/2022 10:46 AM EDT Body Mass Index 56.83 01/07/2022 10:46 AM EDT documented in this encounter Patient Instructions * Patient Instructions* Mariam Ray RN - 01/07/2022 10:39 AM EDT Diabetes: Keeping Feet Healthy Inspect your feet [...] calluses yourself. Talk to your doctor or embroidery supervisor (a doctor who specializes in foot care) [...] Shoes and Socks Fit Any pair of shoesnew or oldshould feel comfortable as soon as you put them on. There shouldnt be any rubbing when you walk. Wear the right shoe for any activity. For instance, a running shoeis designed to keep your feet injury-free while jogging. Buy shoes at the end of the day, when yourfeet are larger. Make sure they provide support without feeling too loose. Make sure your socks fit, too. Wear soft, seamless, well-padded socks for activity. [...] keep the area clean. Then call your doctorespecially if the area doesnt appear to be healing. [id number] [employer], [address] [place] [address]. All rights reserved. This information is not intended as a substitute for professional medical care. Always follow your healthcare professional's instructions. documented in this encounter Progress Notes * Galdino Andujar, DO - 01/07/2022 11:54 AM EDT SUBJECTIVE: Stephanie Camp is a 66 year old female. Chief Complaint Patient presents with NEW PATIENT HPI: Patient is a 66 year old female with a history of DM type II, CKD stage III, Diastolic CHF, chronichypoxic respiratory failure, HTN, Recurrent DVT, IVC filter, Hyperlipidemia with statin intolerance, GERD, Lumbar Disc Disease, restless leg syndrome, Sleep Apnea on CPAP, Heparin Induced Thrombocytopenia, and ambulatory dysfunction that is here to establish. Pulmonary issues started in 2008 when patient was treated for bilateral pneumonia. She had pneumothorax and pulmonary embolism during the hospitalization. Patient has uncontrolled diabetes for many years. She is feeling well. No chest painis present. No shortness of breath when wearing 3 liters of oxygen. Appetite is good and weight is stable. Patient Active Problem List Diagnosis Code Dyslipidemia E78.5 ELLIE (generalized anxiety disorder) F41.1 Postsurgical hypothyroidism E89.0 ELISSA (obstructive sleep apnea) G47.33 Venous insufficiency I87.2 Essential hypertension with goal blood pressure less than 140/90 I10 History of pulmonary embolus (PE) Z86.711 Statin intolerance Z78.[address] Z95.828 Fibromyalgia M79.7 Abnormality of gait R26.9 Restless legs syndrome G25.81 Gastroesophageal reflux disease with esophagitis K21.00 Morbid obesity with BMI of 50.0-59.9, adult ([facility]) E66.01, Z68.43 Controlled substance agreement [...] of lower extremity, unspecified laterality ([facility]) I82.4Y9 Type 2 diabetes mellitus with diabetic chronic kidney disease ([facility]) E11.22 Heparin induced thrombocytopenia (HIT) ([facility]) D75.82 Atherosclerosis of cabazon coronary artery without angina pectoris I25.10 Carotid [...] failure ([facility]) J96.11 Current Outpatient Medications Medication Sig [...] 90 Cap 3 Blood Glucose Monitoring Suppl (BlueSprigTOUCH ULTRA 2) w/Device KIT Use to test BG values 1 Kit 0 Acetaminophen 500 MG Oral Tablet (Acetaminophen Extra Strength) Take 500 mg by mouth every 6 hours as needed. Meclizine HCl 12.5 MG Oral Tablet (Antivert) Take 1 Tab by mouth 3 times a day as needed for Dizziness. 30 Tab 1 Colchicine 0.6 MG Oral Tablet Take 1/2 tab daily 45 Tab 1 Nerve Pain Relief Sublingual Tablet Sublingual Place under the tongue. Indications: pt taking Nervive, nerve relief tablets at bedtime CPAP every night at bedtime. Gabapentin 300 MG Oral Capsule (Neurontin) Take 300 mg by mouth 2 times a day. metOLazone 2.5 MG Oral Tablet (Zaroxolyn) Take [...] . clonazePAM 0.5 MG Oral Tablet (KlonoPIN) Take by mouth 1 Tablet in the morning AND 1 Tablet before bedtime. 60 Tablet 0 traMADol HCl 50 MG Oral Tablet (Ultram) Take by mouth 1 Tablet every 8 hours as needed for Pain, Severe. 90 Tablet 0 DIURETIC TITRATION PLAN If no improvement on day 3, contact heart failure managing provider. 1 Each 0 clobetasol propionate (TEMOVATE) 0.05 % cream Apply to rash on the hands and dorsal feet twice daily x 1 week, then as needed for flares. (Patient not taking: Reported on 01/07/2022 ) 30 g 1 Magnesium Oxide 400 (241.3 Mg) MG Oral Tablet Take 400 mg by mouth daily. (Patient not taking: Reported on 12/31/2021 ) 90 Tab 0 Current Facility-Administered Medications Medication Dose Route [...] in place 08/19/2014 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[facility]) 08/22/2009 History of pulmonary embolus (PE) 07/16/2014 HTN, goal below 140/90 Impetigo 09/27/2018 Obesity, BMI not known Perforation of intestine ([facility]) 1996 COLON -- 1996 Pneumonia in aspergillosis(484.6) 09/14/2009 Recurrent deep vein thrombosis (DVT) of both lower extremities ([facility]) 01/07/2022 Spinal stenosis of lumbar region without neurogenic claudication 07/15/2020 Spontaneous pneumothorax 09/14/2009 Statin intolerance 07/16/2014 Type 2 diabetes mellitus with hemoglobin A1c goal of less than 8.0% ([facility]) 01/07/2022 Past Surgical History: Procedure Laterality Date ARTHROPLASTY KNEE TOTAL Right 07/24/14 R COLONOSCOPY, DIAGNOSTIC (RECTUM) 02/18/2016 normal, repeat 10 yrs/[facility] COLONOSCOPY, GI REFERRAL OP 01/28/06 diverticulosis--repeat 10 years INCISION OF [place], PLANNED 06/03/2011 TRACHEOSTOMY PLANNED performed by DANNY HOLDER at OR [facility] INJECT DX/THER SUBSTANCE INTERLAMINAR LUMBAR/SACRAL W IMAGE GUIDE 05/26/2020 INJECTION SPINE LUMBAR OR SACRAL performed by Raj Ahn DO at OR [facility] INJECT DX/THER SUBSTANCE INTERLAMINAR LUMBAR/SACRAL W IMAGE GUIDE 05/14/2021 INJECTION SPINE LUMBAR OR SACRAL performed by Raj Ahn DO at OR [facility] INJECT DX/THER SUBSTANCE INTERLAMINAR LUMBAR/SACRAL W IMAGE GUIDE 08/13/2021 INJECTION SPINE LUMBAR OR SACRAL performed by Raj Ahn DO at OR [facility] KNEE ARTHROSCOPY/DEBRIDEMENT 07/[address] PERMANENT GASTROSTOMY TUBE 09/06/09 GASTROSTOMY WITH CONSTUCTION GASTRIC TUBE performed by AMADOU NUNEZ at [facility] REMOVAL OF THYROID GLAND 06/15/2011 THYROIDECTOMY INCLUDING SUBSTERNAL THYROID CERVICAL APPROACH performed by DANNY HOLDER at OR [facility] REMOVE GALLBLADDER 09/06/09 CHOLECYSTECTOMY performed by AMADOU NUNEZ at [facility] REPAIR RECURRENT INCISIONAL HERNIA 1998 REVISION OF COLOSTOMY, SIMPLE 1997 SACROILIAC JOINT INJECT W/GUIDANCE 07/28/2020 INJECTION SACROILIAC JOINT performed by Raj Ahn DO at OR [facility] SUTURE, LARGE INTESTINE W/COLOSTOMY 1996 perforation R colon with colostomy VENA CAVA FILTER/LIGATION/CLIP 08/19/09 Frank filter placement through the right femoral 08/19/[address] Lerma at [facility] Review of patient's allergies indicates: [...] decreased concentration and sleep disturbance. OBJECTIVE: BP 110/66 (BP Site: Left Arm, BP Position: Sitting, BP Cuff Size: Large) | Pulse 102 | Temp 36.6 C (97.9 F) (Tympanic) | Resp 16 | Ht 1.651 m (5' 5") | Wt (!) 154.9 kg (341 lb 8 oz) | LMP 03/11/2003 | SpO2 99% Comment: 3 L | BMI 56.83 kg/m | BSA 2.67 m Physical Exam Vitals and nursing note [...] normal. Judgment: Judgment normal. 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, NYHA class 1 and CKD stage 3 ([facility]) - CBC WITH WBC DIFFERENTIAL; Future; Expected date: 01/07/2022 - PHOSPHORUS; Future; Expected date: 01/07/2022 Continue Furosemide, and Metolazone At Home is following with the patient Chronic hypoxemic respiratory failure (HCC) Continue Oxygen Type 2 diabetes mellitus with hemoglobin A1c goal of less than 8.0% ([facility]) Chronic diastolic congestive heart failure ([facility]) Recurrent deep vein thrombosis (DVT) of both lower extremities ([facility]) ELLIE (generalized anxiety disorder) Continue Clonazepam Postsurgical hypothyroidism - TSH WITH FREE T4 IF INDICATED; Future; Expected date: 01/07/2022 Continue Levothyroxine ELISSA (obstructive sleep apnea) Continue CPAP Continue to follow with Sleep Medicine History of pulmonary embolus (PE) IVC filter is in place Continue Apixaban due to recurrent DVT as well Statin intolerance Mild episode of recurrent major depressive disorder (HCC) Continue Duloxetine Frank filter in place Gastroesophageal reflux disease with esophagitis without hemorrhage Spinal stenosis of lumbar region without neurogenic claudication Atherosclerosis of cabazon coronary artery of cabazon heart without angina pectoris Encounter for screening mammogram for breast cancer - MAMMOGRAM SCREENING ELMO BILATERAL; Future; Expected date: 01/07/2022 DM type 2 nursing care encounter ([facility]) - DIABETES FOOT EXAM - ALBUMIN / CREATININE RATIO, URINE; Future; Expected date: 01/07/2022 Encounter for long-term (current) use of medications - PAIN MANAGEMENT DRUG PANEL, URINE W/ INTERPRETATION; Future; Expected date: 01/07/2022 Follow-up: Return in about 2 months (around 03/09/2022), or if symptoms worsen or fail to improve. |Check-out note: Please schedule AWV Schedule Mammogram Schedule fitness evaluation Galdino Andujar DO 11:54 AM 01/07/2022 * Mariam Ray RN - 01/07/2022 10:35 AM EDT DM Foot Exam completed today. Provider aware. Mariam Ray RN Socks and Shoes Removed for Annual Diabetic Foot Screening RIGHT FOOT: No Reddened, Cracking, Or Open Areas Noted. RIGHT Dorsalis Pedis Pulse: Palpable RIGHT Posterior Tibial Pulse: Palpable RIGHT Monofilament:Patient reports difficulty feeling monofilament at Third toe- plantar surface andBall of Foot-base of 3rd toe LEFT FOOT: No Reddened, Cracking or Open Areas Noted. LEFT Dorsalis Pedis Pulse: Palpable LEFT Posterior Tibial Pulse: Palpable LEFT Monofilament:Patient reports feeling monofilament pressure on plantar surface of foot Bilateral feet dry with thick toenails. Pt reports cutting toenails herself. Pt denies podiatry. Pitting edema in bilateral feet with pain. documented in this encounter Nursing Notes * RT Tri (R) - 01/07/2022 11:57 AM EDT Labs drawn per order and sent to [facility] * Mariam Ray RN - 01/07/2022 10:34 AM EDT Pt is here to establish care. documented in this encounter Plan of Treatment Upcoming Encounters Date Type Specialty Care Team Description 01/12/2022 [facility] [address] [facility] [place] [id number] 01/21/2022 Office Visit Family Medicine Kevin Whiteside DO [address] [facility] [place] [address] 01/21/2022 Office Visit Pharmacy [facility] Jeramie [address] [facility] [place] [address] 02/03/2022 Office Visit Nephrology Erik Lenz MD [address] [place] [address] 02/18/2022 Office Visit Pulmonary Nikita Sanchez MD [address] [place] [address] 03/08/2022 Imaging Radiology 03/12/2022 Office Visit Family Medicine [facility] [address] [facility] [address] 04/05/2022 Office Visit Cardiology Marjorie Powell PA-C [address] [place] [address] 04/14/2022 Nurse Only Ancillary Montara, Nurse Annual Wellness Visit [address] [place] [address] Scheduled Orders Name Type Priority Associated Diagnoses Orde r Schedule ALBUMIN / CREATININE RATIO, URINE Lab Routine DM type 2 nursing care encounter (HCC) Expected: 01/07/2022 (Approximate), Expires: 01/07/2023 HEMOGLOBIN A1C Lab Routine Type 2 diabetes mellitus with stage 3b chronic kidney disease, with long-term current use of insulin (HCC) Expected: 01/07/2022 (Approximate), Expires: 01/07/2023 TSH WITH FREE T4 IF INDICATED Lab Routine Postsurgical hypothyroidism Expected: 01/07/2022 (Approximate), Expires: 01/07/2023 BASIC METABOLIC PANEL Lab Routine Type 2 diabetes mellitus with stage 3b chronic kidney disease, with long-term current use of insulin (HCC) Expected: 01/07/2022 (Approximate), Expires: 01/07/2023 CBC WITH WBC DIFFERENTIAL Lab Routine 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, NYHA class 1 and CKD stage 3 (HCC) Expected: 01/07/2022 (Approximate), Expires: 01/07/2023 PHOSPHORUS Lab Routine 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, NYHA class 1 and CKD stage 3 (HCC) Expected: 01/07/2022 (Approximate), Expires: 01/07/2023 MAMMOGRAM SCREENING ELMO BILATERAL Medical Imaging Routine Encounter for screening mammogram for breast cancer Expected: 01/07/2022, Expires: 02/06/2023 PAIN MANAGEMENT DRUG PANEL, URINE W/ INTERPRETATION Lab Routine Encounter for long-term (current) use of medications Expected: 01/07/2022, Expires: 01/07/2023 CBC Lab Routine 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, NYHA class 1 and CKD stage 3 (HCC) Ordered: 01/07/2022 DIFFERENTIAL, AUTOMATED Lab Routine 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, NYHA class 1 and CKD stage 3 (HCC) Ordered: 01/07/2022 Scheduled Procedures Name Priority Associated Diagnoses Date/Ti me COLONOSCOPY FLEXIBLE PROXIMAL DIAGNOSTIC Recall Colon cancer screening Scheduled Referrals Name Type Priority Associated Diagnoses Orde r Schedule PHARMACIST MEDS THERAPY MGMT REFERRAL OP Referral Within 10 days (routine) Type 2 diabetes mellitus with stage 3b chronic kidney disease, with long-term current use of insulin (HCC) Ordered: 01/07/2022 Health Maintenance Due Date Last Done Comments Cologuard: Ages 45-75 2000 FOBT: Ages 45-75 2000 Sigmoidoscopy: Ages 45-75 2000 Pneumococcal Vaccine: 65+ Years (2 of 2 - PPSV23) 2020 08/22/2009, 06/15/2006 DIABETES-URINE ALBUMIN/CREATININE EVERY 12 MONTHS 05/24/2020 05/24/2019, 05/01/2018, 03/03/2017, Additional history exists DIABETES-HGBA1C EVERY 6 MONTHS 05/17/2021 11/17/2020, 01/23/2020, 11/07/2019, Additional history exists COVID-19 Vaccine (3 - Booster) 05/31/2021 12/29/2020, 12/18/2020 BREAST CANCER SCREENING DISCUSSION YEARLY AGES 40-75 10/01/2021 10/01/2020, 07/10/2019, 06/23/2018, Additional history exists TSH FOR THYROID MEDICATION MONITORING YEARLY 12/25/2021 12/25/2020, 05/06/2020, 03/14/2019, Additional history exists CKD PHOS USE SMARTSET 20954 03/12/202202/24, 11/17/2020, 12/24/2019, Additional history exists DIABETES-EYE EXAM 04/14/2022 04/14/2021, , 04/05/2019, Additional history exists CKD GFR USE SMARTSET 87334 06/09/202212/07, 11/27/2021, 03/20/2021, Additional history exists BASIC METABOLIC PANEL (BMP) FOR HTN YEARLY 12/07/2022 12/07/2021, 11/27/2021, 03/20/2021, Additional history exists CKD HGB USE SMARTSET 25280 12/07/202212/072, 12/07/2021, 11/27/2021, Additional history exists DIABETES-FOOT EXAM 01/07/2023 01/07/2022, 0 01/14/2021, 11/07/2019, Additional history exists Depression Screening, Annual for Pts 12 and Over 01/07/2023 01/07/2022, 06/12/2018 Colonoscopy: Ages 45-75 02/17/2026 02/18/20 16, [...] use of insulin ([facility])- Primary 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, NYHA class 1 and CKD stage 3 (HCC) Chronic hypoxemic respiratory failure (HCC) Chronic respiratory failure Type 2 diabetes mellitus with hemoglobin A1c goal of less than 8.0% (HCC) Chronic diastolic congestive heart failure (HCC) Chronic diastolic heart failure Recurrent deep vein thrombosis (DVT) of both lower extremities ([facility]) ELLIE (generalized anxiety disorder) Generalized anxiety disorder Postsurgical hypothyroidism ELISSA (obstructive sleep apnea) Obstructive sleep apnea (adult) (pediatric) History of pulmonary embolus (PE) Personal history of pulmonary embolism Statin intolerance Other drug allergy Mild episode of recurrent major depressive disorder (HCC) Frank filter in place Other postprocedural status Gastroesophageal reflux disease with esophagitis without hemorrhage Spinal stenosis of lumbar region without neurogenic claudication Spinal stenosis, lumbar region, without neurogenic claudication Atherosclerosis of cabazon coronary artery of cabazon heart without angina pectoris Encounter for screening mammogram for breast cancer DM type 2 nursing care encounter (HCC) Type II or unspecified type diabetes mellitus without mention of complication, not stated as uncontrolled Encounter for long-term (current) use of medications Encounter for long-term (current) use of other medications documented in this encounter Advance Directives Documents on File Type Date Recorded 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
--- OUTSIDE RECORDS SUMMARY | 2023-06-01 04:42 | External Medical Summary | Summary of Care ---
Author Name Unknown Organization [place] [address] Care Team Providers Care Can Filling And Closing Machine Tender Name Role Phone Galdino Andujar DO Primary Care Provider [phone] Encounter Details Date Type Department Care Team Description 01/08/2022 Orders Only Family Practice 65 [facility] [place] [address] [place] [id number] Galdino Andujar DO [address] [place] [address] Allergies Active Allergy Reactions Severity Noted Date [...] 90 Cap 3 12/18/2019 Active DIURETIC TITRATION PLANIndications:Airport Guide 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/31/2021 Atherosclerosis of [place] coronary arter y without angina pectoris 12/31/2021 [...] 03/25/2016 Fibromyalgia 02/02/2016 Abnormality of gait 02/02/[address] [address] 08/19/2014 History of pulmonary [...] Specialty Care Team Description 01/12/2022 Home Visit [facility] Vera Capellan, RN 132 [facility] [place] [address] 01/21/2022 Office Visit Family Medicine Kevin Whiteside DO 132 [facility] [place] [address] 01/21/2022 Office Visit Pharmacy [facility] [place] [address] 02/03/2022 Office Visit Nephrology Erik Lenz MD [address] [place] [facility] [place] [address] 02/18/2022 Office Visit Pulmonary [facility] [address] [facility] [address] 03/08/2022 Imaging Radiology 03/12/2022 Office Visit Family Medicine Galdino Andujar DO 293 [place] [address] 04/05/2022 Office Visit Cardiology Marjorie Powell [facility]-C [facility] [address] 04/14/2022 Nurse Only [employer]illary [employer], Nurse Annual Wellness Visit [address] [place] [address] Scheduled Procedures Name Priority Associated Diagnoses Date/Ti [...] Additional history exists CKD GFR USE SMARTSET 71078 07/09/202201/07, 12/26/2021, 12/07/2021, Additional history exists DIABETES-HGBA1C EVERY 6 MONTHS 07/09/2022 01/07/2022, 11/17/2020, 01/23/2020, Additional history exists BASIC METABOLIC PANEL (BMP) FOR HTN YEARLY 01/07/2023 01/07/2022, 12/26/2021, 12/07/2021, Additional history exists CKD HGB USE SMARTSET 65063 01/07/202301/07, 01/07/2022, 12/26/2021, Additional history exists CKD PHOS USE SMARTSET 41663 01/07/202312/25, 03/12/2021, 11/17/2020, Additional history exists DIABETES-FOOT [...] Procedure Name Priority Date/Time Associated Diagnosis Comments CHEMISTRY-OUTSIDE Routine 12/26/2021 documented in this encounter Results * (ABNORMAL) CHEMISTRY-OUTSIDE (12/26/2021) CREATININE-OUTSIDE LAB 1.54(A) 0.6 - 1.2 MG/DL OUTSIDE LAB (SEE SCANNED REPORT) EGFR-OUTSIDE LAB 34.8 ML/MIN OUTSIDE LAB (SEE SCANNED REPORT) POTASSIUM-OUTSIDE LAB 3.6 3.5 - 5.1 MMOL/L OUTSIDE LAB (SEE SCANNED REPORT) GLUCOSE-OUTSIDE LAB 159(A) 70 - 99 MG/DL OUTSIDE LAB (SEE SCANNED REPORT) HOURS FASTING OUTSIDE LAB (S EE SCANNED REPORT) TRIGLYCERIDES-OUTSIDE LAB OUTSIDE LAB (SEE SCANNED REPORT) CHOLESTEROL-OUTSIDE LAB OUTSIDE LAB (SEE SCANNED REPORT) HDL-OUTSIDE LAB OUTSIDE LAB (SEE SCANNED REPORT) CHOL/HDL RATIO-OUTSIDE LAB OUTSIDE LAB (SEE SCANNED REPORT) LDL (CALCULATED)-OUTSIDE LAB OUTSIDE LAB (SEE SCANNED REPORT) LDL (DIRECT MEASURE)-OUTSIDE LAB OUTSIDE LAB (SEE SCANNED REPORT) HEMOGLOBIN, C3O-QMXRINW LAB OUTSIDE LAB (SEE SCANNED REPORT) PHOSPHORUS-OUTSIDE LAB OUTSIDE LAB (SEE SCANNED REPORT) PTH-OUTSIDE LAB OUTSIDE LAB (SEE SCANNED REPORT) MICROALBUMIN RATIO-OUTSIDE LAB OUTSIDE LAB (SEE SCANNED REPORT) PROTEIN, UA-OUTSIDE LAB OUTSIDE LAB (SEE SCANNED REPORT) HEMOGLOBIN-OUTSIDE LAB 14.3 12.0 - 16.0 G/DL OUTSIDE LAB (SEE SCANNED REPORT) CHEMISTRY COMMENT-OUTSIDE LAB Comment:SEE SCAN - CBC,CMP OUTSIDE LAB (SEE SCANNED REPORT) Specimen Narrative OUTSIDE LAB (SEE SCANNED REPORT) documented in this encounter Advance Directives Documents on File Type Date Recorded Patient Pre Billing Clinician Expl anation Advanced Directive Advanced Directive Advanced [...] Camp Other Health Care Hayden r of Funds Transfer Clerk Princess Allen Other Health Care Pow er of Funds Transfer Clerk Care Teams Can Filling And Closing Machine Tender Relationship Specialty Start Date End Date Galdino Andujar, DO [address] [place] [address] PCP - General Internal Medicine 01/07/22 documented as of this encounter
--- OUTSIDE RECORDS SUMMARY | 2023-06-01 04:42 | External Medical Summary | Summary of Care ---
Author Name Unknown Organization [place] [address] Care Team Providers Care Wellness Nurse Rn Name Role Phone Galdino Andujar DO Primary Care Provider [phone] Reason for Visit * Reason Onset Date Comments Referral 01/07/2022 Encounter Details Date Type Department Care Team Description 01/07/2022 Telephone Family Practice 65 [facility] [address] [place] [address] [facility], Pharmacist [address] [address] Referral Allergies Active Allergy Reactions Severity Noted Date [...] Active oxygen GASIndications:LEISSA (obstructive sleep apnea) 2 LPM bled through CPAP 11 cwp during all periods of sleep and 2 LPM via NC with exertion. 0 11/28/2019 Active ACCU-CHEK SOFTCLIX LANCETS MISC Test blood sugar three or four times daily as directed 400 Each 3 12/18/2019 Active omeprazole (PRILOSEC) 20 MG CPDR Take 1 Cap by mouth daily. 90 Cap 3 12/18/2019 Active DIURETIC TITRATION PLANIndications:Metal Bumper 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 Reached out to patient to see if she wants to switchto [address] or keep appt with [facility] pharmacist for now? LMOM on patient's voicemail to let us know whether to be seen at [facility] or [facility]. Frances Duong, Pharm D, BCACP Clinical Pharmacist Medication Therapy Disease Management Clinic 01/07/2022, 3:34 PM Ph. [phone] * Telephone Encounter - CHALO Keith Tech - 01/07/2022 11:38 AM EDT Pharmacist Medication Therapy Management: Minimum frequency patient should be seen in person for medication management: as appropriate per clinical condition and patient status By my signature, I understand that my patient Stephanie Camp will have her medication therapy managed by the [facility] Medication Therapy Disease Management Clinic ([facility]) per established policies, procedures, and protocols. I also certify that this referral may serve as an initiation of service for the management of drug therapy in the above noted patient. [facility] providers will be responsible for scheduling patient visits, obtaining appropriate laboratory studies, and adjusting medication management therapy per patient's need, in addition to those roles spelled out in the clinic policy, procedures, and drug management protocols. I understand that the service provided by the [facility] Clinic is voluntary and have informed patient that they can refuse the service at their discretion. I am aware that the [facility] will provide me with a copy of the patient encounter via [facility]. I authorize the [facility] to carry out these activities on my behalf. I consider this program to be a necessary part of the patient's medical care. Galdino Andujar DO Order Questions Question Answer Referral Priority Within 10 days (routine) Department: Primary Care Reason for Referral: DM Target A1c: < 8 documented in this encounter Plan of Treatment Upcoming Encounters Date Type Specialty Care Team Description 01/12/2022 [facility] Visit [facility] Capellan, RN [address] [facility] [place] [address] 01/21/2022 Office Visit Family Medicine Kevin Whiteside DO 132 [facility] [place] [address] 01/21/2022 Office Visit Pharmacy [facility] Jeramie [address] [facility] [place] [address] 02/03/2022 Office Visit Nephrology Erik Lenz MD 200 [facility] [place] [address] 02/18/2022 Office Visit Pulmonary Nikita Sanchez MD [address] [place] [id number] 03/08/2022 Imaging Radiology 03/12/2022 Office Visit Family Medicine Galdino Andujar DO 293 [facility], [place] [address] 04/05/2022 Office Visit Cardiology Marjorie Powell PA-C [facility] [address] 04/14/2022 Nurse Only Ancillary [facility], Nurse Annual Wellness Visit [address] [place] [address] Scheduled Procedures Name Priority Associated Diagnoses Date/Ti [...] Additional history exists CKD PHOS USE SMARTSET 10043 03/12/202202/24, 11/17/2020, 12/24/2019, Additional history exists DIABETES-EYE EXAM 04/14/2022 04/14/2021, , 04/05/2019, Additional history exists CKD GFR USE SMARTSET 30812 06/09/202212/07, 11/27/2021, 03/20/2021, Additional history exists BASIC METABOLIC PANEL (BMP) FOR HTN YEARLY 12/07/2022 12/07/2021, 11/27/2021, 03/20/2021, Additional history exists CKD HGB USE SMARTSET 58183 12/07/202212/07, 12/07/2021, 11/27/2021, Additional history exists DIABETES-FOOT EXAM [...] on File Type Date Recorded Patient Machine Whitener Expl anation Advanced Directive Advanced Directive Advanced [...] Other Health Care Hayden r of Electrical Instrument Repairer Princess Allen Other Health Care Pow er of Electrical Instrument Repairer Care Teams Wellness Nurse Rn Relationship Specialty Start Date End Date Galdino Andujar, DO [address] [place] [address] PCP - General Internal Medicine 01/07/22 documented as of this encounter
--- OUTSIDE RECORDS SUMMARY | 2023-06-01 04:42 | External Medical Summary | Summary of Care ---
Author Name Unknown Organization [facility] Address [facility] [place] [address] Care Team Providers Care Group Home Supervisor Name Role Phone Galdino Andujar DO Primary Care Provider [phone] Reason for Visit * Reason Comments [facility]: Maintenance Encounter Details Date Type Department Care Team Description 01/12/2022 Home Visit [facility], [facility] 132 [facility] [place] [address] Vera Capellan RN 132 [facility] [place] [address] Advanced care planning/counseling discussion* Allergies Active Allergy Reactions Severity Noted Date Comments Codeine 07/08/2014 hallucination Pollen 05/18/2019 Heparin 09/04/2009 Heparin Induced Thrombocytopenia Hydrocodone Neuro complications (Please comment) 07/28/2020 Empagliflozin Other (Please comment) Medium 05/17/2018 3 yeast infections in 6 weeks after starting Morphine And Related 09/16/1997 Hallucinations Tetanus Toxoid Other (Please comment) 06/15/2011 Passed out documented as of this encounter (statuses as of 01/12/2022) Medications Medication Sig Dispensed Refills Start Date [...] 90 Cap 3 12/18/2019 Active DIURETIC TITRATION PLANIndications:Grain Shoveler 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 1 Each 0 04/08/2020 Active Blood Glucose Monitoring Suppl (Invenergy ULTRA 2) w/Device KIT Use to test [...] of 7.0%-8.0% ([facility]) Inject under the skin [...] as of this encounter (statuses as of 01/12/2022) Active Problems Problem Noted Date Encounter for [...] (HIT) 0 12/31/2021 Atherosclerosis of [place] coronary arter y without angina pectoris 12/31/2021 [...] as of this encounter (statuses as of 01/12/2022) Resolved Problems Problem Noted Date Resolved Date [...] as of this encounter (statuses as of 01/12/2022) Immunizations Name Administration Dates Next Due COVID-19 mRNA, LNP-s, No Pre serve, 2-Dose Series ([facility]) 12/29/2020,12/18/2020 Pneumococcal Polysaccharide PPV23 (Pneumovax) 08/22/2009,06/15/2006 Seasonal [...] Reading Time Taken Comments Blood Pressure 108/62 01/12/2022 9:54 AM EDT Pulse 72 01/12/2022 9:54 AM EDT Temperature 36.4 C (97.6 F) 01/12/2022 9:54 AM ED T Respiratory Rate 18 01/12/2022 9:54 AM EDT Oxygen Saturation 93% 01/12/2022 9:54 AM EDT Inhaled Oxygen Concentration - - Weight - - Height - - Body Mass Index - - documented in this encounter Progress Notes * Vera Capellan RN - 01/12/2022 9:40 AM EDT [facility] Visit Date: 01/12/2022 Time: 9:41 AM Name: Stephanie Camp : 1955 Current Concerns: Pt seen for return RNCM visit Started going to [address] Plans on 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 Feet are sore today because she was up a lot yesterday for Easter at her Aunt's home Blood sugars have been ranging mid 100's to mid 200's Last A1C is 7.8 - this is improvement Denies any issues with extreme highs or lows Physical Exam: BP 108/62 | Pulse 72 | Temp 36.4 C (97.6 F) | Resp 18 | LMP 03/11/2003 | SpO2 93% Pain 0 Physical Exam Constitutional: General: She is not in acute distress. Appearance: She is obese. HENT: Nose: Nose [...] Review of Systems Constitutional: Positive for fatigue. HENT: Negative. Eyes: Negative. Respiratory: Positive for shortness of breath (AVENDAÑO - at baseline). Cardiovascular: Positive for leg swelling. Gastrointestinal: Negative. Endocrine: Negative. Genitourinary: Negative. Musculoskeletal: Positive for arthralgias and back pain. Skin: Negative. Neurological: Positive for weakness (general). Psychiatric/Behavioral: Negative. Medication Reconciliation: (See medication list) Does patient take medications as ordered: Yes Patient Well Being: PHQ2/9: No questionnaires available. No change in living situation Denies falls [facility] Completed this Visit: No. Routine visit and No falls since last visit Advanced Care Planning: POLST. Patient's Goals of Care: 1. Get stronger [...] as advised Wear PERS at all times Home Interventions Provided: Home Intervention: Other; Evaluation Reinforced current Plan of Care, including self-management and medication regimen Updated Advanced Care Planning Note Patient's 'Red Flags': 1. Increased SOB - with rest or talking 2. Increased edema/abd bloating 3. Fall w/ injury Patient Needs to Remember: Call [facility] at with any new or worsening health concerns or problems, red flag symptoms. Referrals Needed: Other none Follow Up: Is there cellular connectivity/connectivity in the home? Yes Does the patient have internet in the home? Yes Patient encouraged to call the intake phone number for all urgent but not emergent issues. Is the patient new to [employer] [facility] within the last 30 days? No, Assess appropriateness for upcoming telehealth visits. Cancel telehealth visits & schedule home visit with care steam service inspector(s)as indicated. Provider is in agreement with Plan of Care: Yes Scheduled to follow up with patient in 3 weeks with LES and 3 weeks after with CORI. Vera Capellan RN 01/12/2022 9:41 AM documented in this encounter Miscellaneous Notes * ACP (Advance Care Planning) - Vera Capellan RN - 01/12/2022 10:06 AM EDT Patient-centered Communication 01/12/2022 The patient/surrogate voluntarily agreed to participate in [...] or go visit family (01/12/2022 9:59 AM) The patient considers these as 'UNACCEPTABLE OUTCOMES':: "Being a vegetable" (define below); Unableto feed themselves; Prolonged residential stay (define below); Prolonged mechanical ventilation (define below); Prolonged hospital stay (define below) (03/24/2021 6:48 PM) "Being a vegetable", patient defines as:: no possible way that i can come back (03/24/2021 6:48 PM) Prolonged hospital stay, patient defines as:: no hope of ever gettig out of hospital (03/24/2021 6:48 PM) Prolonged residential stay, patient defines as:: no hope of ever getting back home (03/24/2021 6:48PM) Prolonged mechanical ventilation, patient defines as:: no hope of getting off ventilator (:48 PM) The patient's cultural or spiritual BELIEFS that may affect health care decisions:: none (:48 PM) Source: Content from Respecting Choices Program Aligning Care With What Matters Most: Interventions/Choices:: CPR; Intubation/mechanical ventilation; Non-invasive ventilation or BIPAP; Antibiotic therapy; Artificial nutrition; IV hydration; Blood transfusion; Lab draws (01/12/2022 10:02 AM) Rationale for Decisions Their goals for CPR treatment are: : see if it works and if it does not work after 2-3 times let mego (03/24/2021 6:52 PM) Their goals for Intubation/mechanical ventilation treatment are: : getting off as soon as possible,I don't want life long ventilation (03/24/2021 6:52 PM) Unacceptable outcomes from Intubation/mechanical ventilation treatment are: : being on it the rest of my life (03/24/2021 6:52 PM) Their goals for Non-invasive ventilation or BIPAP treatment are: : if it is short term (01/12/2022 10:02 AM) Their goals for IV hydration treatment are: : short term only (01/12/2022 10:02 AM) Source: Content from [employer] Program 20 minutes spent in direct [id number] discussion today, Vera Capellan RN documented in this encounter Plan of Treatment Upcoming Encounters Date Type Specialty Care Team Description 01/21/2022 Office Visit Family Medicine Kevin Whiteside DO [address] [place] [address] 01/21/2022 Office Visit Pharmacy [facility] Jeramie [address] [place] [address] 02/02/2022 Home Visit Family Medicine Magaly Morales, Community [facility] Senior Accounting Manager [address] [place] [address] 02/03/2022 Office Visit Nephrology Erik Lenz MD 200 [place] [address] 02/18/2022 Office Visit Pulmonary Nikita Sanchez MD [address] [place] [address] 02/23/2022 [facility] Visit [facility] [place] [facility] Capellan, RN [facility] [place] [address] 03/08/2022 Imaging Radiology 03/12/2022 Office Visit Family Medicine Galdino Andujar, DO 293 [place] [address] 04/05/2022 Office Visit Cardiology Marjorie Powell PA-C 132 [facility] [place] [address] 04/14/2022 Nurse Only Ancillary [employer], Nurse Annual Wellness Visit [address] [place] [address] Scheduled Procedures Name Priority Associated Diagnoses Date/Ti [...] Additional history exists CKD GFR USE SMARTSET 78779 07/09/202201/07, 12/26/2021, 12/07/2021, Additional history exists DIABETES-HGBA1C EVERY 6 MONTHS 07/09/2022 01/07/2022, 11/17/2020, 01/23/2020, Additional history exists BASIC METABOLIC PANEL (BMP) FOR HTN YEARLY 01/07/2023 01/07/2022, 12/26/2021, 12/07/2021, Additional history exists CKD HGB USE SMARTSET 84106 01/07/202301/07, 01/07/2022, 12/26/2021, Additional history exists CKD PHOS USE SMARTSET 87722 01/07/202312/25, 03/12/2021, 11/17/2020, Additional history exists DIABETES-FOOT [...] Documents on File Type Date Recorded Patient Ironer Hand Expl anation Advanced Directive Advanced Directive [...] Camp Other Health Care Hayden r of Sports Recruiter Princess Allen Other Health Care Pow er of Sports Recruiter Care Teams Group Home Supervisor Relationship Specialty Start Date End Date Galdino Andujar, DO [address] [place] [address] PCP - General Internal Medicine 01/07/22 documented as of this encounter
--- OUTSIDE RECORDS SUMMARY | 2023-06-01 04:42 | External Medical Summary | Summary of Care ---
Author Name Unknown Organization [facility] Address [facility] [place] [address] Care Team Providers Care Speech Therapist Technician Name Role Phone Galdino Andujar DO Primary Care Provider [phone] Reason for Visit * Reason Onset Date Comments Medication Refill 01/13/2022 Encounter Details Date Type Department Care Team Description 01/13/2022 Refill [facility] [address] [place] [address] Migue Whiteside DO [address] [place] [address] Allergies Active Allergy Reactions Severity Noted Date Comments Codeine 07/08/2014 hallucination Pollen 05/18/2019 Heparin 09/04/2009 Heparin Induced Thrombocytopenia Hydrocodone Neuro complications (Please comment) 07/28/2020 Empagliflozin Other (Please comment) Medium 05/17/2018 3 yeast infections in 6 weeks after starting Morphine And Related 09/16/1997 Hallucinations Tetanus Toxoid Other (Please comment) 06/15/2011 Passed out documented as of this encounter (statuses as of 01/13/2022) Medications Medication Sig Dispensed Refills Start Date [...] 0 04/08/2020 Active Blood Glucose Monitoring Suppl (WHI Solution ULTRA 2) w/Device KIT Use to test [...] day . 180 Tablet 3 01/13/2022 Active Apixaban 5 MG Oral Tablet (Eliquis) Take by mouth 10 mg in the morning AND 10 mg before bedtime. 10mg twice a day x 7 days then 5mg twice a day . 0 01/14/20 22 Discontinu ed(Refill) Hospital, Clinic, or Other Facility Administered Medication Ordered Dose Route Frequency Start Date End Date Status Albuterol Sulfate (Proventil) (2.5 MG/3ML) 0.083% inhalation solution 2.5 mgIndications:Chronic hypoxemic respiratory failure (HCC) 2.5 mg NEBULIZER Q4H PRN 10/08/2021 Active documented as of this encounter (statuses as of 01/13/2022) Active Problems Problem Noted Date Encounter for [...] as of this encounter (statuses as of 01/13/2022) Resolved Problems Problem Noted Date Resolved Date [...] as of this encounter (statuses as of 01/13/2022) Immunizations Name Administration Dates Next Due COVID-19 [...] Miscellaneous Notes * Telephone Encounter - Migue Whiteisde DO - 01/13/2022 7:46 AM EDT Signed Prescriptions: Disp Refills Apixaban 5 MG Oral Tablet (Eliquis) 180 Ta*3 Sig: Take by mouth 1 Tablet in the morning AND 1 Tablet before bedtime. 10mg twice a day x 7 days then 5mg twice a day . Authorizing Provider: MIGUE WHITESIDE * Telephone Encounter - Stephanie Cook MED ASSIST - 01/13/2022 7:35 AM EDT Pending Prescriptions: Disp Refills Apixaban 5 MG Oral Tablet (Eliquis) Sig: Take by mouth 2 Tablets in the morning AND 2 Tablets before bedtime. 10mg twice a day x 7 days then 5mg twice a day . * Telephone Encounter - ELISSA Mendez - 01/13/2022 7:10 AM EDT Pending Prescriptions: Disp Refills Apixaban 5 MG Oral Tablet (Eliquis) Sig: Take by mouth 2 Tablets in the morning AND 2 Tablets before bedtime. 10mg twice a day x 7 days then 5mg twice a day . Last Visit: 12/31/2021 (in office), 12/19/2020 (telemedicine) Next Visit: 01/21/2022 If no future appointments scheduled, and last appointment is greater than a year ago, please schedule patient for a follow-up appointment Last date the medication was ordered: 11/27/21 Pharmacy: [id number] [address] [place] documented in this encounter Plan of Treatment Upcoming Encounters Date Type Specialty Care Team Description 01/21/2022 Office Visit Family Medicine Migue Whiteside DO [address] [place] [address] 01/21/2022 Office Visit Pharmacy Dan[facility] [place] [place] [address] 02/02/2022 Home Visit Family Medicine Magaly Morales, [facility] [address] [place] [address] 02/03/2022 Office Visit Nephrology Erik Lenz MD [address] [place] [address] 02/18/2022 Office Visit Pulmonary Nikita Sanchez MD [address] [place] [id number] 02/23/2022 [facility] Visit [facility] Vera Capellan, RN [address] [place] [address] [address] 03/08/2022 Imaging Radiology 03/12/2022 Office Visit Family Medicine Galdino Andujar, DO [address] [place] [address] 04/05/2022 Office Visit Cardiology Marjorie Powell PA-C [address] [place] [address] 04/14/2022 Nurse Only [employer] [employer], Nurse Annual Wellness Visit [address] [place] [address] Scheduled Procedures Name Priority Associated Diagnoses Date/Ti [...] Additional history exists CKD GFR USE SMARTSET 12789 07/09/202201/07, 12/26/2021, 12/07/2021, Additional history exists DIABETES-HGBA1C EVERY 6 MONTHS 07/09/2022 01/07/2022, 11/17/2020, 01/23/2020, Additional history exists BASIC METABOLIC PANEL (BMP) FOR HTN YEARLY 01/07/2023 01/07/2022, 12/26/2021, 12/07/2021, Additional history exists CKD HGB USE SMARTSET 96005 01/07/202301/07, 01/07/2022, 12/26/2021, Additional history exists CKD PHOS USE SMARTSET 18474 01/07/202312/25, 03/12/2021, 11/17/2020, Additional history exists DIABETES-FOOT [...] Documents on File Type Date Recorded Patient Fur Tinter Expl anation Advanced Directive Advanced Directive Advanced [...] Camp Other Health Care Hayden r of Research Leader Princess Other Health Care Pow er of Research Leader Care Teams Speech Therapist Technician Relationship Specialty Start Date End Date Galdino Andujar, DO [address] [place] [address] PCP - General Internal Medicine 01/07/22 documented as of this encounter
--- OUTSIDE RECORDS SUMMARY | 2023-06-01 04:43 | External Medical Summary ---
Author Name Unknown Address Unknown Organization K01:[facility] [place] [facility] [address] [facility] [address] [place] [address] Laboratory Report Ordering Provider Test Date Status JAG SHULTZ 01/07/2022 11:56:05 Final Observation Date Value Abnormality Reference (Units ) Status WBC, Total 01/07/2022 11:56:05 11.57 Above high normal 4.00-10.80 (K/uL) Final RBC 01/07/2022 11:56:05 4.66 3.85-5.15 (M/uL) Final Hemoglobin 01/07/2022 11:56:05 13.9 12.0-15.3 (g/dL) Final HCT 01/07/2022 11:56:05 45.1 36.0-45.2 (%) Final MCV 01/07/2022 11:56:05 96.8 81.5-97.5 (fL) Final MCH 01/07/2022 11:56:05 29.8 27.0-34.0 (pg) Final MCHC 01/07/2022 11:56:05 30.8 Below low normal 32.0-36.0 (g/dL) Final RDW 01/07/2022 11:56:05 14.7 11.5-15.5 (%) Final MPV 01/07/2022 11:56:05 10.7 6.6-11.1 (fL) Final Nucleated erythrocytes/100 leukocytes [Ratio] in Blood by Automated count 01/07/2022 11:56:05 0 <=0 (/100 WBCs) Final Platelets 01/07/2022 11:56:05 289 140-400 (K/uL) Final Performing Location [facility] [place] [address] [place] [address]
--- OUTSIDE RECORDS SUMMARY | 2023-06-01 04:43 | External Medical Summary | Summary of Care ---
Author Name Unknown Organization [place] [address] Care Team Providers Care Control Systems Designer Name Role Phone Kevin Whiteside DO Primary Care Provider Encounter Details Date Type Department Care Team Description 12/25/2021 Scan Encounter [facility] [address] [place] [address] Kevin Whiteside DO [address] [facility] [place] [address] <No scans attached> Allergies Active Allergy Reactions Severity Noted Date Comments Codeine 07/08/2014 hallucination Pollen 05/18/2019 Heparin 09/04/2009 Heparin Induced Thrombocytopenia Hydrocodone Neuro complications (Please comment) 07/28/2020 Empagliflozin Other (Please comment) Medium 05/17/2018 3 yeast infections in 6 weeks after starting Morphine And Related 09/16/1997 Hallucinations Tetanus Toxoid Other (Please comment) 06/15/2011 Passed out documented as of this encounter (statuses as of 12/28/2021) Medications Medication Sig Dispensed Refills Start Date [...] 90 Cap 3 12/18/2019 Active DIURETIC TITRATION PLANIndications: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 1 Each 0 04/08/2020 Active Blood Glucose Monitoring Suppl (N-of-One ULTRA 2) w/Device KIT Use to test [...] Tab 0 07/24/2020 Active Additional Information Patient taking differently: 200 mg Oral DAILY, Reported on 09/26/2021 Acetaminophen 500 MG Oral Tablet (Acetaminophen Extra [...] skin 1 Patch daily . 0 Active Azithromycin 500 MG Oral Tablet (Zithromax) Take by mouth 500 mg daily . 0 Active traMADol HCl 50 MG Oral Tablet (Ultram)Indications: Chronic pain syndrome Take 1 Tablet by mouth every 8 hours as needed for Pain, Severe. 90 Tablet 0 10/19/2021 Active BD Pen Needle Short U/F 31G [...] 1 Tablet before bedtime. 60 Tablet 0 11/26/2021 Active Apixaban 5 MG Oral Tablet (Eliquis) Take by mouth 10 mg in the morning AND 10 mg before bedtime. 10mg twice a day x 7 days then 5mg twice a day . 0 Active Hospital, Clinic, or Other Facility Administered Medication Ordered Dose Route Frequency Start Date End Date Status Albuterol Sulfate (Proventil) (2.5 MG/3ML) 0.083% inhalation solution 2.5 mgIndications:Chronic hypoxemic respiratory failure (HCC) 2.5 mg NEBULIZER Q4H PRN 10/08/2021 Active documented as of this encounter (statuses as of 12/28/2021) Active Problems Problem Noted Date Acute deep vein thrombosis ( DVT) of proximal vein of lower extremity, unspecified laterality 12/03/2021 Hypotension 12/19/2020 Spinal stenosis of lumbar region without neurogenic [...] 03/25/2016 Fibromyalgia 02/02/2016 Abnormality of gait 02/02/2016 Type 2 diabetes mellitus with hemoglobin A1c goal of 7.0%-8.0% 10/14/2014 Overview: ICD-10 update of inactive term Frank filter in place 08/19/2014 History of pulmonary embolus (PE) 2013 Statin intolerance 07/16/2014 HTN, goal below 130/80 02/22/2014 Venous insufficiency 02/07/2013 ELISSA (obstructive sleep apnea) 09/16/2011 Overview: CPAP 11 cwp Mild, AHI 11.3 but with significant nocturnal hypoxemia Dicks Postsurgical hypothyroidism 06/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 documented as of this encounter (statuses as of 12/28/2021) Resolved Problems Problem Noted Date Resolved Date Uncontrolled type 2 diabetes mellitus with stage [...] insulin 05/24/2017 01/10/2020 Overview: Per CKD protocol Kidney disease, chronic, stage III (GFR 30-59 [...] as of this encounter (statuses as of 12/28/2021) Immunizations Name Administration Dates Next Due COVID-19 [...] Encounters Date Type Specialty Care Team Description 12/28/2021 Scheduled [facility]phone [facility] Solomon [address] [place] [address] 01/12/2022 Home Visit [facility] Vera Capellan RN [address] [place] [address] 01/21/2022 Office Visit Family Medicine Kevin Whiteside DO [address] [place] [address] [address] 01/21/2022 Office Visit Pharmacy [facility] Moe [address] [place] [address] 02/18/2022 Office Visit Pulmonary Nikita Sanchez MD [address] [place] [address] 03/08/2022 Imaging Radiology 04/05/2022 Office Visit Cardiology Marjorie Powell PA-C [address] [place] [address] Scheduled Procedures Name Priority Associated Diagnoses Date/Ti [...] Vaccine (3 - Booster) 05/31/2021 12/29/2020, 12/18/2020 Depression Screening, Annual for Pts 12 and Over 07/28/2021 07/28/2020, 06/12/2018 BREAST CANCER SCREENING DISCUSSION YEARLY AGES 40-75 10/01/2021 10/01/2020, 07/10/2019, 06/23/2018, Additional history exists TSH FOR THYROID MEDICATION MONITORING YEARLY 12/25/2021 12/25/2020, 05/06/2020, 03/14/2019, Additional history exists DIABETES-FOOT EXAM 01/14/2022 01/14/2021, 0 11/07/2019, 01/01/2019, Additional history exists CKD PHOS USE SMARTSET 95815 03/12/202202/24, 11/17/2020, 12/24/2019, Additional history exists DIABETES-EYE EXAM 04/14/2022 04/14/2021, , 04/05/2019, Additional history exists CKD GFR USE SMARTSET 61156 06/09/202212/07, 11/27/2021, 03/20/2021, Additional history exists BASIC METABOLIC PANEL (BMP) FOR HTN YEARLY 12/07/2022 12/07/2021, 11/27/2021, 03/20/2021, Additional history exists CKD HGB USE SMARTSET 27611 12/07/202212/07, 12/07/2021, 11/27/2021, Additional history exists Colonoscopy: Ages 45-75 02/17/2026 [...] on File Type Date Recorded Patient Senior Production Supervisor Expl anation Advanced Directive Advanced Directive [...] Camp Other Health Care Hayden r of Concept Artist Princess Allen Other Health Care Pow er of Concept Artist Care Teams Control Systems Designer Relationship Specialty Start Date End Date Kevin Whiteside DO [address] [place] [address] PCP - General Family Medicine 05/01/18 documented as of this encounter
--- OUTSIDE RECORDS SUMMARY | 2023-06-01 04:43 | External Medical Summary | Summary of Care ---
Author Name Unknown Organization [place] [address] Care Team Providers Care Tray Packer Name Role Phone Kevin Whiteside DO Primary Care Provider Reason for Visit * Reason Comments Emergency Department Follow-Up Pt here f or ER f/u, seen 12/25/2021 at [facility] for back pain. Pt states sciatica back pain continues bilat lower hips. Encounter Details Date Type Department Care Team Description 12/31/2021 Office Visit Family [facility] [address] [facility] [place] [address] Kevin Whiteside, [address] [facility] [place] [address] Low back strain, initial encounter*; Anxiety state; Chronic pain syndrome; Mild episode of recurrent major depressive disorder ([facility]); Type 2 diabetes mellitus with diabetic chronic kidney disease, unspecified CKD stage, unspecified whether fdc insulin use ([facility]); Morbid obesity with BMI of 50.0-59.9, adult ([facility]); Heparin induced thrombocytopenia (HIT) ([facility]); Atherosclerosis of choct[place] coronary artery without angina pectoris, unspecified whether choctaw or transplanted heart; Postsurgical hypothyroidism; Gastroesophageal reflux disease with esophagitis, unspecified whether hemorrhage; Carotid artery stenosis, asymptomatic, right; Leukocytoclastic vasculitis ([facility]); Type 2 diabetes mellitus with hemoglobin A1c goal of 7.0%-8.0% ([facility]); Hyperparathyroidism, secondary renal ([facility]); Gregory filter in place; Chronic diastolic congestive heart failure (HCC); 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, NYHA class 1 and CKD stage 3 (HCC); Acute deep vein thrombosis (DVT) of proximal vein of lower extremity, unspecified laterality (HCC); Morbid obesity due to excess calories (HCC) Allergies Active Allergy Reactions Severity Noted Date Comments Codeine 07/08/2014 hallucination Pollen 05/18/2019 Heparin 09/04/2009 Heparin Induced Thrombocytopenia Hydrocodone Neuro complications (Please comment) 07/28/2020 Empagliflozin Other (Please comment) Medium 05/17/2018 3 yeast infections in 6 weeks after starting Morphine And Related 09/16/1997 Hallucinations Tetanus Toxoid Other (Please comment) 06/15/2011 Passed out documented as of this encounter (statuses as of 12/31/2021) Medications Medication Sig Dispensed Refills Start Date [...] 0 04/08/2020 Active Blood Glucose Monitoring Suppl (Toma BiosciencesTOUCH ULTRA 2) w/Device KIT Use to test [...] 0 Active clonazePAM 0.5 MG Oral Tablet (KlonoPIN)Indicatio ns:Anxiety state Take by mouth 1 Tablet in the morning AND 1 Tablet before bedtime. 60 Tablet 0 12/31/2021 Active traMADol HCl 50 MG Oral Tablet (Ultram)Indications :Chronic pain syndrome Take by mouth 1 Tablet every 8 hours as needed for Pain, Severe. 90 Tablet 0 12/31/2021 Active Azithromycin 500 MG Oral Tablet (Zithromax) Take by mouth 500 mg daily . 0 01/01/20 22 Discontinu ed(Medicat ion List Clean Up) traMADol HCl 50 MG Oral Tablet (Ultram)Indications :Chronic pain syndrome Take 1 Tablet by mouth every 8 hours as needed for Pain, Severe. 90 Tablet 0 10/19/2021 01/01/20 22 Discontinu ed(Refill) clonazePAM 0.5 MG Oral Tablet (KlonoPIN)Indicatio ns:Anxiety state Take by mouth 1 Tablet in the morning AND 1 Tablet before bedtime. 60 Tablet 0 11/26/2021 01/01/20 22 Discontinu ed(Refill) Hospital, Clinic, or Other Facility Administered Medication Ordered Dose Route Frequency Start Date End Date Status Albuterol Sulfate (Proventil) (2.5 MG/3ML) 0.083% inhalation solution 2.5 mgIndications:Chronic hypoxemic respiratory failure (HCC) 2.5 mg NEBULIZER Q4H PRN 10/08/2021 Active documented as of this encounter (statuses as of 12/31/2021) Active Problems Problem Noted Date Type 2 diabetes mellitus with diabetic c hronic kidney disease 12/31/2021 Type 2 diabetes mellitus with diabetic c hronic kidney disease 12/31/2021 Heparin induced thrombocytopenia (HIT) 0 12/31/2021 Atherosclerosis of choctaw coronary arter y without angina pectoris 12/31/2021 [...] 10/14/2014 Overview: ICD-10 update of inactive term Gregory filter in place 08/19/2014 History of pulmonary embolus (PE) 2013 Statin intolerance 07/16/2014 HTN, goal below 130/80 02/22/2014 Venous insufficiency 02/07/2013 ELISSA (obstructive sleep apnea) 09/16/2011 Overview: CPAP 11 cwp Mild, AHI 11.3 but with significant nocturnal hypoxemia Dicks Postsurgical hypothyroidism 06/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 documented as of this encounter (statuses as of 12/31/2021) Resolved Problems Problem Noted Date Resolved Date [...] as of this encounter (statuses as of 12/31/2021) Immunizations Name Administration Dates Next Due COVID-19 [...] Sign Reading Time Taken Comments Blood Pressure 140/78 12/31/2021 10:01 AM EDT Pulse 104 12/31/2021 10:01 AM EDT Temperature 36.1 C (97 F) 12/31/2021 10:01 AM EDT Respiratory Rate 26 12/31/2021 10:01 AM EDT Oxygen Saturation 96% 12/31/2021 10:01 AM EDT Inhaled Oxygen Concentration - - Weight 154.4 kg (340 lb 5 oz) 12/31/2021 10:01 A M EDT Height - - Body Mass Index 58.41 12/03/2021 1:52 PM EST documented in this encounter Patient Instructions * Patient Instructions* Kevin Lisa Stevo, DO - 12/31/2021 10:36 AM EDT BMI (Body Mass Index) is the number obtained by dividing a person's weight in kilograms by his or her height in meters squared. BMI is used in determining obesity. BMI is not used to determine a person's actual percentage of body fat, but it is a good tool to herbarium worker weight in terms of what is healthy and unhealthy. It is used to identify adults at increased risk for developing weight related medical problems. Estimated body mass index is 58.41 kg/m as calculated from the following: Height as of 12/03/21: 1.626 m (5' 4"). Weight as of this encounter: 154.4 kg (340 lb 5 oz). Severe Obesity - BMI 40 kg/m2 [...] message program is also available. Go to [employer] and seethe message under '[employer] News' for more information and enrollment. Patient [...] permitted. Keep Honest, Accurate Food logs: * [email or web address] * www.[employer] * If you bite it - write [...] documented in this encounter Progress Notes * Kevin Whiteside DO - 12/31/2021 10:36 AM EDT Images from the original note were not included. Assessment and Plan Low back strain, initial encounter Advised to continue gentle ROM activities as tolerated PRN tramadol, f/u as needed Weight management still a necessity Anxiety state - clonazePAM 0.5 MG Oral Tablet (KlonoPIN); Take by mouth 1 Tablet in the morning AND 1 Tablet before bedtime. Chronic pain syndrome - traMADol HCl 50 MG Oral Tablet (Ultram); Take by mouth 1 Tablet every 8 hours as needed for Pain,Severe. Mild episode of recurrent major depressive disorder (HCC) Type 2 diabetes mellitus with diabetic chronic kidney disease, unspecified CKD stage, unspecified whether sound system installer insulin use (HCC) Morbid obesity with BMI of 50.0-59.9, adult (HCC) Heparin induced thrombocytopenia (HIT) ([facility]) Atherosclerosis of choctaw coronary artery without angina pectoris, unspecified whether choctaw or transplanted heart Postsurgical hypothyroidism Gastroesophageal reflux disease with esophagitis, unspecified whether hemorrhage Carotid artery stenosis, asymptomatic, right Leukocytoclastic vasculitis (HCC) Type 2 diabetes mellitus with hemoglobin A1c goal of 7.0%-8.0% (HCC) Hyperparathyroidism, secondary renal (HCC) Frank filter in place Chronic diastolic congestive heart failure (HCC) 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 Pt states sciatica back pain continues bilat lower hips.) Presents in f/u from hospital visit For low back pain She was concerned about possible UTI, however work up was negative Dx with low back strain Has had issues with her back historically Has been improving slowly Physical Exam Vitals: 12/31/21 1001 Temp: 36.1 C (97 F) Pulse: 104 Resp: 26 SpO2: 96% BP: 140/78 Physical Exam Constitutional: Appearance: Normal appearance. HENT: Head: Normocephalic and atraumatic. Eyes: Extraocular Movements: Extraocular movements intact. Pupils: Pupils are equal, round, and reactive to light. Musculoskeletal: General: Tenderness present. No swelling, deformity or signs of injury. Neurological: General: No focal deficit present. Mental Status: She is alert and oriented to person, place, and time. Psychiatric: Mood and Affect: Mood normal. Behavior: Behavior normal. Wrap-Up Follow-up: Return in about 6 months (around 07/02/2022). | Check-out note: Patient interested in joining 65 forward Time: Total time today was 45 minutes excluding any time spent in the performance of separately billed services. Patient counseling on weight management given. documented in this encounter Nursing Notes * Hortencia Aguirre LPN - 12/31/2021 10:06 AM EDT The patient has been properly identified by confirmation of name and date of . Chief Complaint Patient presents with Emergency Department Follow-Up Pt here for ER f/u, seen 12/25/2021 at [facility] for back pain. Pt states sciatica back pain continues bilat lower hips. documented in this encounter Plan of Treatment Upcoming Encounters Date Type Specialty Care Team Description 01/12/2022 Home Visit [facility] Vera Capellan RN [address] [place] [address] 01/21/2022 Office Visit Family Medicine Kevin Whiteside DO [address] [place] [address] 01/21/2022 Office Visit Pharmacy [facility] [place] [address] [place] [address] 02/03/2022 Office Visit Nephrology Erik Lenz MD [address] [place] [address] 02/18/2022 Office Visit Pulmonary Nikita Sanchez MD [address] [place] [address] 03/08/2022 Imaging Radiology 04/05/2022 Office Visit Cardiology Marjorie Powell PA-C [address] [place] [address] Scheduled Procedures Name Priority Associated Diagnoses Date/Ti [...] Additional history exists CKD PHOS USE SMARTSET 53721 03/12/202202/24, 11/17/2020, 12/24/2019, Additional history exists DIABETES-EYE EXAM 04/14/2022 04/14/2021, , 04/05/2019, Additional history exists CKD GFR USE SMARTSET 07036 06/09/202212/07, 11/27/2021, 03/20/2021, Additional history exists BASIC METABOLIC PANEL (BMP) FOR HTN YEARLY 12/07/2022 12/07/2021, 11/27/2021, 03/20/2021, Additional history exists CKD HGB USE SMARTSET 45341 12/07/202212/07, 12/07/2021, 11/27/2021, Additional history exists Colonoscopy: [...] as of this encounter Visit Diagnoses Diagnosis Low back strain, initial encounter- Primary Anxiety state Anxiety state, unspecified Chronic pain syndrome Mild episode of recurrent major depressive disorder (HCC) Type 2 diabetes mellitus with diabetic chronic kidney disease, unspecified CKD stage, unspecified whether fdc insulin use (HCC) Morbid obesity with BMI of 50.0-59.9, adult (HCC) Morbid obesity 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) 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HIT) Atherosclerosis of choct[place] coronary artery without angina pectoris, unspecified whether choctaw or transplanted heart Postsurgical hypothyroidism Gastroesophageal reflux disease with esophagitis, unspecified whether hemorrhage Carotid artery stenosis, asymptomatic, right 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 Hyperparathyroidism, secondary renal (HCC) Secondary hyperparathyroidism (of renal origin) Frank filter in place Other postprocedural status Chronic diastolic congestive heart failure (HCC) Chronic diastolic heart failure 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, NYHA class 1 and CKD stage 3 (HCC) Acute deep vein thrombosis (DVT) of proximal vein of lower extremity, unspecified laterality (HCC) Morbid obesity due to excess calories (HCC) documented in this encounter Advance Directives Documents on File Type Date Recorded Patient Team Psychologist Expl anation Advanced Directive Advanced Directive Advanced [...] Camp Other Health Care [facility] r of Psych Np Princess Allen Other Health Care Pow er of Psych Np Care Teams Tray Packer Relationship Specialty Start Date End Date Kevin Whiteside DO [address] [place] [address] PCP - General Family Medicine 05/01/18 documented as of this encounter
--- OUTSIDE RECORDS SUMMARY | 2023-06-01 04:43 | External Medical Summary ---
Author Name Unknown Address Unknown Organization [id number]:[facility] [place] [facility] [address] [place] [address] Laboratory Report Ordering Provider Test Date Status LEXIIJAG 01/07/2022 11:56:06 Final Observation Date Value Abnormality Reference (Units ) Status BUN 01/07/2022 11:56:06 25 Above high normal 6-20 (mg/dL) Final Creatinine 01/07/2022 11:56:06 1.4 Above high normal 0.5-1.0 (mg/dL) Final Glomerular filtration rate/1.73 sq M.predicted [Volume Rate/Area] in Serum, Plasma or Blood by Creatinine-based formula (CKD-EPI) 01/07/2022 11:56:06 43 Below low normal >=60 (mL/min) Final Performing Location [facility] [place] - [address] [place] [address]
--- OUTSIDE RECORDS SUMMARY | 2023-06-01 04:43 | External Medical Summary ---
Author Name Unknown Address Unknown Organization [id number]:[facility] [place] - [address] [place] [address] Laboratory Report Ordering Provider Test Date Status JAG SHULTZ 01/07/2022 11:56:06 Final Observation Date Value Abnormality Reference (Units ) Status TSH 01/07/2022 11:56:06 0.95 0.27-4.20 (uIU/mL) Final Performing Location [facility] [place] - [address] [place] [address]
--- OUTSIDE RECORDS SUMMARY | 2023-06-01 04:43 | External Medical Summary ---
Author Name Unknown Address Unknown Organization [id number]:[facility] [place] - [address] [facility] [place] [address] Laboratory Report Ordering Provider Test Date Status JAG SHULTZ 01/07/2022 11:56:05 Final Observation Date Value Abnormality Reference (Units ) Status SYNC LEUKOCYTES IN BLOOD BY AUTOMATED COUNT 01/07/2022 11:56:05 11.57 Above high normal 4.00-10.80 (K/uL) Final Segs 01/07/2022 11:56:05 74.3 40.0-75.0 (%) Final Lymphs % 01/07/2022 11:56:05 14.6 Below low normal 18.0-42.0 (%) Final Monos 01/07/2022 11:56:05 5.7 1.0-11.0 (%) Final Eosinophils 01/07/2022 11:56:05 3.5 0.0-6.0 (%) Final Basos 01/07/2022 11:56:05 0.6 0.0-2.0 (%) Final Immature Granulocyte, Percent 01/07/2022 11:56:05 1.3 0.0-2.0 (%) Final Absolute Segs 01/07/2022 11:56:05 8.59 Above high normal 1.80-7.70 (K/uL) Final Lymphs, absolute 01/07/2022 11:56:05 1.69 1.00-4.80 (K/ul) Final Monos, Abs 01/07/2022 11:56:05 0.66 0.00-1.10 (K/uL) Final Eos, Abs 01/07/2022 11:56:05 0.41 0.00-0.70 (K/uL) Final Basos, Abs 01/07/2022 11:56:05 0.07 0.00-0.20 (K/uL) Final Immature Granulocytes, Number 01/07/2022 11:56:05 0.15 0.00-0.20 (K/uL) Final Performing Location [facility] [place] - [facility] [place] [address]
--- OUTSIDE RECORDS SUMMARY | 2023-06-01 04:43 | External Medical Summary | Summary of Care ---
Author Name Unknown Organization [place] [address] Care Team Providers Care Specialist Field Engineer Name Role Phone Kevin Whiteside DO Primary Care Provider Reason for Visit * Reason Onset Date Comments Health Maintenance 01/04/2022 Encounter Details Date Type Department Care Team Description 01/04/2022 Telephone Family Practice [facility] [address] [place] [address] Kevin Whiteside DO [address] [place] [address] Health Maintenance Allergies Active Allergy Reactions Severity Noted Date Comments Codeine 07/08/2014 hallucination Pollen 05/18/2019 Heparin 09/04/2009 Heparin Induced Thrombocytopenia Hydrocodone Neuro complications (Please comment) 07/28/2020 Empagliflozin Other (Please comment) Medium 05/17/2018 3 yeast infections in 6 weeks after starting Morphine And Related 09/16/1997 Hallucinations Tetanus Toxoid Other (Please comment) 06/15/2011 Passed out documented as of this encounter (statuses as of 01/04/2022) Medications Medication Sig Dispensed Refills Start Date [...] 90 Cap 3 12/18/2019 Active DIURETIC TITRATION PLANIndications:Lead Injection Mold Technician 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 1 Each 0 04/08/2020 Active Blood Glucose Monitoring Suppl ([employer] ULTRA 2) w/Device KIT Use to test [...] inhalation solution 2.5 mgIndications:Chronic hypoxemic respiratory failure ([facility]) 2.5 mg NEBULIZER Q4H PRN 10/08/2021 Active documented as of this encounter (statuses as of 01/04/2022) Active Problems Problem Noted Date Type 2 diabetes mellitus with diabetic c hronic kidney disease 12/31/2021 Heparin induced thrombocytopenia (HIT) 0 12/31/2021 Atherosclerosis of [place] coronary arter y without angina pectoris 12/31/2021 [...] as of this encounter (statuses as of 01/04/2022) Resolved Problems Problem Noted Date Resolved Date [...] as of this encounter (statuses as of 01/04/2022) Immunizations Name Administration Dates Next Due COVID-19 [...] Miscellaneous Notes * Telephone Encounter - Sadie Coleman LPN - 01/04/2022 9:50 AM EDT Care Gaps Comprehensive Care Outreach Last Office/Telemedicine Visit: 12/31/2021 (in office), 12/19/2020 (telemedicine) Last Office/Telemedine Visit Annual Wellness: Next Office Visit: 01/21/2022 Reviewed Health Maintenance below: Health Maintenance Care needs: Frequency: Last completed: Due next: Pneumonia Vaccine (#2[2 of 2 - PPSV23) Series 08/22/2009 2020 Yearly Urine Albumin/creatinine Test 1 Year 05/24/2019 05/24/2020 A1c Blood Sugar Test - Every 6 Months 6 Months 11/17/2020 05/17/2021 Covid-19 Vaccine (#3[3 - Booster) Series 12/29/2020 05/31/2021 Discuss Yearly Breast Cancer Screening 1 Year 10/01/2020 10/01/2021 Yearly Thyroid Level Check 1 Year 12/25/2020 12/25/2021 Yearly Foot Exam 1 Year 01/14/2021 01/14/2022 Phosphorus Monitoring (Kidney Disease) 1 Year 03/12/2021 03/12/2022 Dilated Eye Exam (By Eye Doctor Or Retinal Camera) 1 Year 04/14/2021 04/14/2022 Kidney Function Test (Kidney Disease) 6 Months 12/07/2021 06/09/2022 Care Gap Outreach Action Taken: Outreach not indicated Moving to 65 forward documented in this encounter Plan of Treatment Upcoming Encounters Date Type Specialty Care Team Description 01/07/2022 Office Visit Family Medicine Galdino Andujar DO [address] [place] [address] 01/12/2022 Home Visit [facility] Vera Capellan RN [address] [place] [address] 01/21/2022 Office Visit Family Medicine Kevin Whiteside DO [address] [place] [address] 01/21/2022 Office Visit Pharmacy [facility] [place] [address] [place] [address] 02/03/2022 Office Visit Nephrology Erik Lenz MD [address] [facility] [place] [place] [address] 02/18/2022 Office Visit Pulmonary Nikita Sanchez MD [address] [place] [address] 03/08/2022 Imaging Radiology 04/05/2022 Office Visit Cardiology Marjorie Powell PA-C [address] [place] [address] Scheduled Procedures Name Priority Associated Diagnoses Date/Ti [...] Additional history exists CKD PHOS USE SMARTSET 74709 03/12/202202/24, 11/17/2020, 12/24/2019, Additional history exists DIABETES-EYE EXAM 04/14/2022 04/14/2021, , 04/05/2019, Additional history exists CKD GFR USE SMARTSET 73606 06/09/202212/07, 11/27/2021, 03/20/2021, Additional history exists BASIC METABOLIC PANEL (BMP) FOR HTN YEARLY 12/07/2022 12/07/2021, 11/27/2021, 03/20/2021, Additional history exists CKD HGB USE SMARTSET 51574 12/07/202212/07, 12/07/2021, 11/27/2021, Additional history exists Colonoscopy: [...] Documents on File Type Date Recorded Patient Hydrodynamics Teacher Expl anation Advanced Directive Advanced Directive [...] Camp Other Health Care Hayden r of Abrasive Mixer Princess Allen Other Health Care Pow er of Abrasive Mixer Care Teams Specialist Field Engineer Relationship Specialty Start Date End Date Kevin Whiteside DO [address] [place] [address] PCP - General Family Medicine 05/01/18 documented as of this encounter
--- OUTSIDE RECORDS SUMMARY | 2023-06-01 04:43 | External Medical Summary | Summary of Care ---
Author Name Unknown Organization [facility] Address [place] [address] Care Team Providers Care Quality Worker Name Role Phone Kevin Whiteside DO Primary Care Provider Reason for Visit * Reason Onset Date Comments [facility]: Maintenance 12/28/2021 Encounter Details Date Type Department Care Team Description 12/28/2021 Scheduled Telephone [facility] [address] [place] [address] Coordinator, [facility] [address] [place] [id number] Allergies Active Allergy Reactions Severity Noted Date [...] 90 Cap 3 12/18/2019 Active DIURETIC TITRATION PLANIndications:Sample Cutter 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 1 Each 0 04/08/2020 Active Blood Glucose Monitoring Suppl ([employer] ULTRA 2) w/Device KIT Use to test [...] 10/14/2014 Overview: ICD-10 update of inactive term [place] filter in place 08/19/2014 History of pulmonary [...] mRNA, LNP-s, No Pre serve, 2-Dose Series ([place]) 12/29/2020,12/18/2020 Pneumococcal Polysaccharide PPV23 (Pneumovax) 08/22/2009,06/15/2006 Seasonal [...] Telephone Encounter - Karyn Clarke LPN - 12/28/2021 11:18 AM EDT Patient called into treadle cut off saw operator on 12/25 with back/groin pain Spoke with patient States her pain is slightly better States the pain is no longer radiating into groin, but is radiating into her legs The pain is now just in her lower back Does have a hx of sciatica Did end up going [facility] late Tuesday night Was given IV tylenol Labs and CT scan were normal Has still been taking tylenol regularly at home Resting a lot Rest seems to help the pain Advised she could try heat to the lower back as well 15 minutes per hour She does have a call into PCP office about getting some injections Awaiting a call back from them Denies any needs or concerns today Aware to call with any needs documented in this encounter Plan of Treatment Upcoming Encounters Date Type Specialty Care Team Description 01/12/2022 Home Visit [facility] Vera Capellan, RN [address] [place] [address] 01/21/2022 Office Visit Family Medicine Kevin Whiteside DO [address] [place] [address] 01/21/2022 Office Visit Pharmacy [facility] [place] [address] [place] [address] 02/18/2022 Office Visit Pulmonary Nikita Sanchez MD [address] [place] [address] 03/08/2022 Imaging Radiology 04/05/2022 Office Visit Cardiology Marjorie Powell PA-C [address] [place] [address] Scheduled Procedures Name Priority Associated Diagnoses Date/Ti [...] Additional history exists CKD PHOS USE SMARTSET 62251 03/12/202202/24, 11/17/2020, 12/24/2019, Additional history exists DIABETES-EYE EXAM 04/14/2022 04/14/2021, , 04/05/2019, Additional history exists CKD GFR USE SMARTSET 36166 06/09/202212/07, 11/27/2021, 03/20/2021, Additional history exists BASIC METABOLIC PANEL (BMP) FOR HTN YEARLY 12/07/2022 12/07/2021, 11/27/2021, 03/20/2021, Additional history exists CKD HGB USE SMARTSET 12112 12/07/202212/07, 12/07/2021, 11/27/2021, Additional history exists Colonoscopy: [...] Documents on File Type Date Recorded Patient President Expl anation Advanced Directive Advanced Directive Advanced [...] er of Lawn Mower Mechanic Care Teams Quality Worker Relationship Specialty Start Date End Date Kevin Whiteside DO [address] [facility] [place] [address] PCP - General Family Medicine 05/01/18 documented as of this encounter
--- OUTSIDE RECORDS SUMMARY | 2023-06-01 04:43 | External Medical Summary ---
Author Name Unknown Address Unknown Organization K01:[facility] - [address] [place] [address] Laboratory Report Ordering Provider Test Date Status JAG SHULTZ 01/07/2022 11:56:06 Final Observation Date Value Abnormality Reference (Units ) Status Phosphate 01/07/2022 11:56:06 3.0 2.5-4.8 (m g/dL) Final Performing Location [facility] - [address] [place] [address]
--- OUTSIDE RECORDS SUMMARY | 2023-06-01 04:43 | External Medical Summary | Summary of Care ---
Author Name Unknown Organization [facility] [address] Care Team Providers Care Production Proofreader Name Role Phone Kevin Whiteside DO Primary Care Provider Reason for Visit * Reason Comments [facility]: Maintenance Encounter Details Date Type Department Care Team Description 12/25/2021 Home Visit Care Coordination [address], [place] [id number] Magaly Morales, Community Health Signal Fitter [address] [place] [address] Allergies Active Allergy Reactions Severity Noted Date Comments Codeine 07/08/2014 hallucination Pollen 05/18/2019 Heparin 09/04/2009 Heparin Induced Thrombocytopenia Hydrocodone Neuro complications (Please comment) 07/28/2020 Empagliflozin Other (Please comment) Medium 05/17/2018 3 yeast infections in 6 weeks after starting Morphine And Related 09/16/1997 Hallucinations Tetanus Toxoid Other (Please comment) 06/15/2011 Passed out documented as of this encounter (statuses as of 12/25/2021) Medications Medication Sig Dispensed Refills Start Date [...] Cap 3 12/18/2019 Active DIURETIC TITRATION PLANIndications:Manager Business Process 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 1 Each 0 04/08/2020 Active Blood Glucose Monitoring Suppl (Red Lambda ULTRA 2) w/Device KIT Use to test [...] as of this encounter (statuses as of 12/25/2021) Active Problems Problem Noted Date Acute deep [...] as of this encounter (statuses as of 12/25/2021) Resolved Problems Problem Noted Date Resolved Date [...] as of this encounter (statuses as of 12/25/2021) Immunizations Name Administration Dates Next Due COVID-19 [...] Reading Time Taken Comments Blood Pressure 126/60 12/25/2021 2:51 PM EDT Pulse 90 12/25/2021 2:51 PM EDT Temperature 36.7 C (98.1 F) 12/25/2021 2:51 PM ED T Respiratory Rate 20 12/25/2021 2:51 PM EDT Oxygen Saturation 98% 12/25/2021 2:51 PM EDT Inhaled Oxygen Concentration - - Weight - - Height - - Body Mass Index - - documented in this encounter Progress Notes * Magaly Morales, Community Health Signal Fitter - 12/25/2021 2:54 PM EDT Community Health Signal Fitter Visit Date: 12/25/2021 Time: 2:54 PM Name: Stephanie Camp : 1955 Referral Source: web operations manager Source of Information: Patient Patient can read in Lithuanian: Yes. Facilities Maintenance Worker needed: No. COVID-19 screening completed: Yes Vitals: Vital signs completed: Yes, vital signs within normal range. BP 126/60 | Pulse 90 | Temp 36.7 C (98.1 F) | Resp 20 | LMP 03/11/2003 | SpO2 98% Condition Changes: Changes in health or social status since last visit: Patient reporting she is feeling well She is using oxygen at all times Denied any falls or SOB The patient has new concerns since last visit: No Medications: Medication review completed? No, Reports taking as orderd Does the patient have barriers to medication adherence? No. Patient reports difficulty paying for medications or might in the future: No. Telehealth: This is a telehealth visit: No. Symptoms Surveys and Evaluations: [facility]10 completed this visit: No. Last flowsheet values for [facility]: Age 65+: 1 (12/07/2021 10:00 AM) Diagnosis (3 or more co-existing): 1 (12/07/2021 10:00 AM) Prior history of falls within 3 months: 0 (12/07/2021 10:00 AM) Incontinence: 1 (12/07/2021 10:00 AM) Visual impairment: 0 (12/07/2021 10:00 AM) Impaired functional mobility: 1 (12/07/2021 10:00 AM) Environmental hazards: 1 (12/07/2021 10:00 AM) Poly Pharmacy (4 or more prescriptions - any type): 1 (12/07/2021 10:00 AM) Pain affecting level of function: 1 (12/07/2021 10:00 AM) Cognitive impairment: 0 (12/07/2021 10:00 AM) Score - a score of 4 or more is considered at risk for fallin (12/07/2021 10:00 AM) Plan: Reinforced patient's three red flags by the care team. Follow Up: Patient encouraged to call the intake phone number for all urgent but not emergent issues. Scheduled to follow up with patient in 6 weeks . Magaly Morales Community Health Signal Fitter 12/25/2021 2:54 PM documented in this encounter Plan of Treatment Upcoming Encounters Date Type Specialty Care Team Description 01/12/2022 Home Visit [facility] Vera Capellan, RN [address] [place] [address] 01/21/2022 Office Visit Family Medicine Kevin Whiteside DO [address] [place] [address] 01/21/2022 Office Visit Pharmacy [facility] [place] [address] [place] [address] 02/18/2022 Office Visit Pulmonary Nikita Sanchez MD [address] [place] [address] 03/08/2022 Imaging Radiology 04/05/2022 Office Visit Cardiology Marjorie Powell PA-C [address] [place] [address] Scheduled Procedures Name Priority Associated Diagnoses Date/Ti [...] Additional history exists CKD PHOS USE SMARTSET 63887 03/12/202202/24, 11/17/2020, 12/24/2019, Additional history exists DIABETES-EYE EXAM 04/14/2022 04/14/2021, , 04/05/2019, Additional history exists CKD GFR USE SMARTSET 75127 06/09/202212/07, 11/27/2021, 03/20/2021, Additional history exists BASIC METABOLIC PANEL (BMP) FOR HTN YEARLY 12/07/2022 12/07/2021, 11/27/2021, 03/20/2021, Additional history exists CKD HGB USE SMARTSET 30056 12/07/202212/07, 12/07/2021, 11/27/2021, Additional history exists Colonoscopy: [...] Documents on File Type Date Recorded Patient Black Oxide Operator Expl anation Advanced Directive Advanced Directive [...] Camp Other Health Care Hayden r of Commission Specialist Princess Allen Other Health Care Pow er of Commission Specialist Care Teams Production Proofreader Relationship Specialty Start Date End Date Kevin Whiteside DO [address] [place] [address] PCP - General Family Medicine 05/01/18 documented as of this encounter"
--- OUTSIDE RECORDS SUMMARY | 2023-06-01 04:43 | External Medical Summary ---
Author Name Unknown Address Unknown Organization K01:[facility] - [address] [place] [address] Laboratory Report Ordering Provider Test Date Status JAG SHULTZ 01/07/2022 12:06:11 Final Observation Date Value Abnormality Reference (Units ) Status Albumin, Urine 01/07/2022 12:06:11 <1.20 (mg/dL) Final Creatinine, Urine 01/07/2022 12:06:11 74 (mg/dL) Final Albumin/Creatinine [Mass Ratio] in Urine 01/07/2022 12:06:11 <16 <30 (mg/g Creat) Final Performing Location [facility] - [address] [place] [address]
--- OUTSIDE RECORDS SUMMARY | 2023-06-01 04:43 | External Medical Summary | Summary of Care ---
Author Name Unknown Organization [place] [address] Care Team Providers Care Acidizer Water Well Name Role Phone Kevin Whiteside DO Primary Care Provider Reason for Visit * Reason Onset Date Comments Appointment 12/31/2021 Encounter Details Date Type Department Care Team Description 12/31/2021 Telephone Family Practice [address] [place] [address] [address] [place] [phone] Galdino Andujar DO [address] [place] [address] Appointment Allergies Active Allergy Reactions Severity Noted Date Comments Codeine 07/08/2014 hallucination Pollen 05/18/2019 Heparin 09/04/2009 Heparin Induced Thrombocytopenia Hydrocodone Neuro complications (Please comment) 07/28/2020 Empagliflozin Other (Please comment) Medium 05/17/2018 3 yeast infections in 6 weeks after starting Morphine And Related 09/16/1997 Hallucinations Tetanus Toxoid Other (Please comment) 06/15/2011 Passed out documented as of this encounter (statuses as of 01/01/2022) Medications Medication Sig Dispensed Refills Start Date [...] 90 Cap 3 12/18/2019 Active DIURETIC TITRATION PLANIndications:Dispatcher Chief Oil 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 1 Each 0 04/08/2020 Active Blood Glucose Monitoring Suppl (Phase Focus ULTRA 2) w/Device KIT Use to test [...] ([facility]) Inject 40 units with meals + sliding scale 1 units for every 25 units BG > 150. 121 mL 3 11/04/2021 Active Tresiba FlexTouch 100 UNIT/ML Subcutaneous Solution Pen-injector (Insulin Degludec)Indications :Type 2 diabetes mellitus with hemoglobin A1c goal of 7.0%-8.0% ([facility]) Inject under the skin 60 Units in [...] as of this encounter (statuses as of 01/01/2022) Active Problems Problem Noted Date Type 2 diabetes mellitus with diabetic c hronic kidney disease 12/31/2021 Type 2 diabetes mellitus with diabetic c hronic kidney disease 12/31/2021 Heparin induced thrombocytopenia (HIT) 0 12/31/2021 Atherosclerosis of [place] coronary arter y without angina pectoris 12/31/2021 [...] as of this encounter (statuses as of 01/01/2022) Resolved Problems Problem Noted Date Resolved Date [...] as of this encounter (statuses as of 01/01/2022) Immunizations Name Administration Dates Next Due COVID-19 [...] * Telephone Encounter - ELISSA Salguero - 01/01/2022 9:11 AM EDT Called patient and scheduled a new patient visit for 01/07/22 at 10:40am. I left the patient know to bring a list of current medications and up to date insurance card. Patient is aware and will comply. * Telephone Encounter - ELISSA Whitten - 12/31/2021 10:54 AM EDT Rec'd staff message forwarded from Shira Gross re: setting up pt as a new pt here at [address]. LVM for pt to return call to set up appt and for us to answer any questions she has. documented in this encounter Plan of Treatment Upcoming Encounters Date Type Specialty Care Team Description 01/07/2022 Office Visit Family Medicine Galdino Andujar DO [address] [place] [address] 01/12/2022 [facility] Visit [facility] [place] [address] 01/21/2022 Office Visit Family Medicine Kevin Whiteside DO [address] [place] [address] 01/21/[address] [facility] [place] [address] [place] [address] 02/03/2022 Office Visit Nephrology Erik Lenz MD [address] [facility] [place] [address] 02/18/2022 Office Visit Pulmonary [facility]ita Sanchez MD [address] [facility] [id number] 03/08/2022 Imaging Radiology 04/05/2022 Office Visit Cardiology Marjorie Powell PA-C [address] [place] [address] Scheduled Procedures Name Priority Associated Diagnoses Date/Ti [...] Additional history exists CKD PHOS USE SMARTSET 84396 03/12/202202/24, 11/17/2020, 12/24/2019, Additional history exists DIABETES-EYE EXAM 04/14/2022 04/14/2021, , 04/05/2019, Additional history exists CKD GFR USE SMARTSET 72401 06/09/202212/07, 11/27/2021, 03/20/2021, Additional history exists BASIC METABOLIC PANEL (BMP) FOR HTN YEARLY 12/07/2022 12/07/2021, 11/27/2021, 03/20/2021, Additional history exists CKD HGB USE SMARTSET 27966 12/07/202212/07, 12/07/2021, 11/27/2021, Additional history exists Colonoscopy: [...] Documents on File Type Date Recorded Patient Theater Projectionist Expl anation Advanced Directive Advanced Directive Advanced [...] Camp Other Health Care Hayden r of Trust Officer Princess Allen Other Health Care Pow er of Trust Officer Care Teams Acidizer Water Well Relationship Specialty Start Date End Date Kevin Whiteside DO [address] [place] [address] PCP - General Family Medicine 05/01/18 documented as of this encounter
--- OUTSIDE RECORDS SUMMARY | 2023-06-01 04:43 | External Medical Summary ---
Author Name Unknown Address Unknown Organization K01:[facility] - [address] [place] [address] Laboratory Report Ordering Provider Test Date Status JAG SHULTZ 01/07/2022 11:56:05 Final Observation Date Value Abnormality Reference (Units ) Status HbA1C 01/07/2022 11:56:05 7.8 Above high normal 4. 0-5.6 (%) Final Performing Location [facility] - [address] [place] [address]
--- OUTSIDE RECORDS SUMMARY | 2023-06-01 04:44 | External Medical Summary | Summary of Care ---
Author Name Unknown Organization [place] [address] Care Team Providers Care Java Jsf Developer Name Role Phone Kevin Whiteside DO Primary Care Provider Reason for Visit * Reason Onset Date Comments NEW PATIENT 12/08/2021 LILI VILCHIS APPT Encounter Details Date Type Department Care Team Description 12/08/2021 Telephone Hematology/Oncology [facility] [address] [place] [address] Jo Zamarripa MD [address] [place] [address] NEW PATIENT (LILI LOPEZThad) Allergies Active Allergy Reactions Severity Noted Date Comments Codeine 07/08/2014 hallucination Pollen 05/18/2019 Heparin 09/04/2009 Heparin Induced Thrombocytopenia Hydrocodone Neuro complications (Please comment) 07/28/2020 Empagliflozin Other (Please comment) Medium 05/17/2018 3 yeast infections in 6 weeks after starting Morphine And Related 09/16/1997 Hallucinations Tetanus Toxoid Other (Please comment) 06/15/2011 Passed out documented as of this encounter (statuses as of 12/18/2021) Medications Medication Sig Dispensed Refills Start Date [...] Cap 3 12/18/2019 Active DIURETIC TITRATION PLANIndications:Vehicle Glass Technician 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 1 Each 0 04/08/2020 Active Blood Glucose Monitoring Suppl (Biomode - Biomolecular Determination ULTRA 2) w/Device KIT Use to test [...] of 7.0%-8.0% ([facility]) Inject under the skin 60 [...] 5mg twice a day . 0 Active Amoxicillin-Pot Clavulanate 875-125 MG Oral TabletIndications:Ac [place] non-recurrent frontal sinusitis Take by mouth 1 Tablet in the morning AND 1 Tablet before bedtime. Do all this for 10 days. 20 Tablet 0 12/01/2021 2 Hospital, Clinic, or Other Facility Administered Medication Ordered Dose Route Frequency Start Date End Date Status Albuterol Sulfate (Proventil) (2.5 MG/3ML) 0.083% inhalation solution 2.5 mgIndications:Chronic hypoxemic respiratory failure (HCC) 2.5 mg NEBULIZER Q4H PRN 10/08/2021 Active documented as of this encounter (statuses as of 12/18/2021) Active Problems Problem Noted Date Acute deep [...] 10/14/2014 Overview: ICD-10 update of inactive term [place] filter in place 08/19/2014 History of pulmonary embolus (PE) 2013 Statin intolerance 07/16/2014 HTN, goal below 130/80 02/22/2014 Venous insufficiency 02/07/2013 ELISSA (obstructive sleep apnea) 09/16/2011 Overview: CPAP 11 cwp Mild, AHI 11.3 but with significant nocturnal hypoxemia Dicks Postsurgical hypothyroidism 06/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 documented as of this encounter (statuses as of 12/18/2021) Resolved Problems Problem Noted Date Resolved Date [...] as of this encounter (statuses as of 12/18/2021) Immunizations Name Administration Dates Next Due COVID-19 [...] Miscellaneous Notes * Telephone Encounter - ELISSA Leonard - 12/18/2021 4:00 PM EDT Called X4 and lmom for patient to give our office a call to get scheduled. Left number of [phone] Option 1. Letter sent. * Telephone Encounter - ELISSA Leonard - 12/16/2021 2:14 PM EDT Called X3 and lmom for patient to give our office a call to get scheduled. Left number of [phone] Option 1 * Telephone Encounter - ELISSA Leonard - 12/15/2021 3:18 PM EDT Called X2 and lmom for patient to give our office a call back to schedule for HEM APPT. Left numberof [phone] Option 1. * Telephone Encounter - ELISSA Leonard - 12/08/2021 12:35 PM EDT Received referral for patient to be seen for HEM APPT. Called and lmom for patient to give us a call back to get scheduled. Left number of [phone] Option 1. documented in this encounter Plan of Treatment Upcoming Encounters Date Type Specialty Care Team Description 12/23/2021 Office Visit Nephrology Erik Lenz MD [address] [facility] [place] [address] 12/25/2021 Home Visit Family Medicine Magaly Morales, Community Health Special Effects Technician [address] [place] [address] 01/12/2022 [facility] [id number] 01/21/2022 Office Visit Family Medicine Kevin Whiteside DO [address] [place] [address] 01/21/2022 Office Visit Pharmacy [facility] [place] [address] [place] [address] 02/18/2022 Office Visit Pulmonary Nikita Sanchez MD [address] [place] [address] 03/08/2022 Imaging Radiology 04/05/2022 Office Visit Cardiology Marjorie Powell PA-C [address] [place] [address] Scheduled Procedures Name Priority Associated Diagnoses Date/Ti [...] Additional history exists CKD PHOS USE SMARTSET 72607 03/12/202202/24, 11/17/2020, 12/24/2019, Additional history exists DIABETES-EYE EXAM 04/14/2022 04/14/2021, , 04/05/2019, Additional history exists CKD GFR USE SMARTSET 29490 06/09/202212/07, 11/27/2021, 03/20/2021, Additional history exists BASIC METABOLIC PANEL (BMP) FOR HTN YEARLY 12/07/2022 12/07/2021, 11/27/2021, 03/20/2021, Additional history exists CKD HGB USE SMARTSET 84526 12/07/202212/07, 12/07/2021, 11/27/2021, Additional history exists Colonoscopy: [...] on File Type Date Recorded Patient Business Database Analyst Expl anation Advanced Directive Advanced Directive [...] Camp Other Health Care Hayden r of Rabies Inspector Princess Allen Other Health Care Pow er of Rabies Inspector Care Teams Java Jsf Developer Relationship Specialty Start Date End Date Kevin Whiteside, [address] [place] [address] PCP - General Family Medicine 05/01/18 documented as of this encounter
--- OUTSIDE RECORDS SUMMARY | 2023-06-01 04:44 | External Medical Summary | Summary of Care ---
Author Name Unknown Organization [place] [address] Care Team Providers Care Interstate Bus Driver Name Role Phone Kevin Whiteside DO Primary Care Provider Reason for Visit * Reason Onset Date Comments COVID-19 Screening 12/10/2021 Encounter Details Date Type Department Care Team Description 12/10/2021 Telephone COVID19 Screening [facility] DEPT CLOSED 07/07/21 [address] [place] [id number], Automated Provider COVID-19 Screening Allergies Active Allergy Reactions Severity Noted Date Comments Codeine 07/08/2014 hallucination Pollen 05/18/2019 Heparin 09/04/2009 Heparin Induced Thrombocytopenia Hydrocodone Neuro complications (Please comment) 07/28/2020 Empagliflozin Other (Please comment) Medium 05/17/2018 3 yeast infections in 6 weeks after starting Morphine And Related 09/16/1997 Hallucinations Tetanus Toxoid Other (Please comment) 06/15/2011 Passed out documented as of this encounter (statuses as of 12/10/2021) Medications Medication Sig Dispensed Refills Start Date [...] 90 Cap 3 12/18/2019 Active DIURETIC TITRATION PLANIndications:Ecd 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 1 Each 0 04/08/2020 Active Blood Glucose Monitoring Suppl (DigiSynd ULTRA 2) w/Device KIT Use to test [...] Active Amoxicillin-Pot Clavulanate 875-125 MG Oral TabletIndications:Ac [place] non-recurrent frontal sinusitis Take by mouth 1 Tablet in the morning AND 1 Tablet before bedtime. Do all this for 10 days. 20 Tablet 0 12/01/2021 03/18/202 2 Active Hospital, Clinic, or Other Facility Administered Medication Ordered Dose Route Frequency Start Date End Date Status Albuterol Sulfate (Proventil) (2.5 MG/3ML) 0.083% inhalation solution 2.5 mgIndications:Chronic hypoxemic respiratory failure (HCC) 2.5 mg NEBULIZER Q4H PRN 10/08/2021 Active documented as of this encounter (statuses as of 12/10/2021) Active Problems Problem Noted Date Acute deep [...] as of this encounter (statuses as of 12/10/2021) Resolved Problems Problem Noted Date Resolved Date [...] as of this encounter (statuses as of 12/10/2021) Immunizations Name Administration Dates Next Due COVID-19 [...] Notes * Telephone Encounter - Covid Results [facility] - 12/10/2021 10:52 PM EDT Outreach Attempts IVR Call Dec 10 2021 9:26AM Answered - Success Results COVID: Negative Flu: Negative RSV: Negative IVR Message: Marilou Brown. Your tests from 12/07/2021 00:00:00 for COVID-19, Flu, and RSV all came back negative. This means you are NOT infected with any of these viruses. If your cold/flu symptoms last longer than 7 days or get worse, contact your primary care physician. If you don't have a primary care physician, go to the nearest [employer] [facility] or urgent care clinic. To establish care with a [employer] provider, please call [phone]. Practice social distancing and good hand hygiene to keep yourself and others safe. Your results are also available for your reference in your [employer] account under 'Test & Lab Results.' If you are not enrolled in My[employer], you can create an account by going to [email or web address]. You will also receive a letter in the mail with your results. If you are a [employer] staff member or employee, when you receive your result, please call [employer] between 7 a.m. and 4 p.m. at [phone]. Notify them of your test results and for instructions on returning to work after your quarantine period. Press 1 if you would like to speak with a nurse, press 2 to hear this message again. documented in this encounter Plan of Treatment Upcoming Encounters Date Type Specialty Care Team Description 12/14/2021 Scheduled Telephone [facility] [place], [place] Cisneros [address] [place] [address] 12/23/2021 Office Visit Nephrology Erik Lenz MD [address] [place] [address] 12/25/2021 Home Visit Family Medicine Magaly Morales, Community Health Parts And Service Manager [address] [place] [address] 01/12/2022 Home Visit [facility] Vera Capellan RN [address] [place] [address] 01/21/2022 Office Visit Family Medicine Kevin Whiteside DO [address] [place] [address] 01/21/2022 Office Visit Pharmacy [facility] Jeramie [address] [place] [address] 02/18/2022 Office Visit Pulmonary Nikita Sanchez MD [address] [place] [address] 03/08/2022 Imaging Radiology 04/05/2022 Office Visit Cardiology Marjorie Powell PA-C [address] [place] [address] Scheduled Procedures Name Priority Associated Diagnoses Date/Ti [...] Additional history exists CKD PHOS USE SMARTSET 18309 03/12/202202/24, 11/17/2020, 12/24/2019, Additional history exists DIABETES-EYE EXAM 04/14/2022 04/14/2021, , 04/05/2019, Additional history exists CKD GFR USE SMARTSET 10888 06/09/202212/07, 11/27/2021, 03/20/2021, Additional history exists BASIC METABOLIC PANEL (BMP) FOR HTN YEARLY 12/07/2022 12/07/2021, 11/27/2021, 03/20/2021, Additional history exists CKD HGB USE SMARTSET 61420 12/07/202212/07, 12/07/2021, 11/27/2021, Additional history exists Colonoscopy: [...] Documents on File Type Date Recorded Patient Heeler Expl anation Advanced Directive Advanced Directive Advanced [...] Camp Other Health Care Hayden r of Under Baster Princess Allen Other Health Care Pow er of Under Baster Care Teams Interstate Bus Driver Relationship Specialty Start Date End Date Kevin Whiteside DO [address] [place] [address] PCP - General Family Medicine 05/01/18 documented as of this encounter
--- OUTSIDE RECORDS SUMMARY | 2023-06-01 04:44 | External Medical Summary | Summary of Care ---
Author Name Unknown Organization [place] [address] Care Team Providers Care Mine Wedge Sawyer Name Role Phone Kevin Whiteside DO Primary Care Provider Reason for Visit * Reason Comments eRx-Medication Refill Encounter Details Date Type Department Care Team Description 12/25/2021 Refill Family Practice [facility] [address] [facility] [place] [address] Kevin Whiteside DO [address] [facility] [place] [address] Vertigo Allergies Active Allergy Reactions Severity Noted [...] 90 Cap 3 12/18/2019 Active DIURETIC TITRATION PLANIndications:Casket Inspector 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 1 Each 0 04/08/2020 Active Blood Glucose Monitoring Suppl (PolyRemedy ULTRA 2) w/Device KIT Use to test [...] of 7.0%-8.0% ([facility]) Inject under the skin [...] 10/14/2014 Overview: ICD-10 update of inactive term Viola filter in place 08/19/2014 History of [...] Notes * Telephone Encounter - Rebecca Starr [facility] - 12/25/2021 1:32 PM EDT Refused Prescriptions: Disp Refills Ondansetron HCl 4 MG Oral Tablet (Zofran) 90 Tab*6 Sig: TAKE ONE TABLET BY MOUTH EVERY 6 HOURS NEEDED FOR NAUSEARefused By: REBECCA STARR for Refusal: Too soon documented in this encounter Plan of Treatment Upcoming Encounters Date Type Specialty Care Team Description 01/12/2022 Home Visit [facility] Vera Capellan, RN [address] [place] [address] 01/21/2022 Office Visit Family Medicine Kevin Whiteside DO [address] [place] [address] 01/21/2022 Office Visit Pharmacy [facility] Jeramie [address] [place] [address] 02/18/2022 Office Visit Pulmonary Nikita Sanchez MD [address] [place] [address] 03/08/2022 Imaging Radiology 04/05/2022 Office Visit Cardiology Marjorie Powell PA-C [address] [place] [address] Scheduled Procedures Name Priority Associated Diagnoses Date/Ti [...] Additional history exists CKD PHOS USE SMARTSET 13528 03/12/202202/24, 11/17/2020, 12/24/2019, Additional history exists DIABETES-EYE EXAM 04/14/2022 04/14/2021, , 04/05/2019, Additional history exists CKD GFR USE SMARTSET 17742 06/09/202212/07, 11/27/2021, 03/20/2021, Additional history exists BASIC METABOLIC PANEL (BMP) FOR HTN YEARLY 12/07/2022 12/07/2021, 11/27/2021, 03/20/2021, Additional history exists CKD HGB USE SMARTSET 24080 12/07/202212/07, 12/07/2021, 11/27/2021, Additional history exists Colonoscopy: [...] as of this encounter Visit Diagnoses Diagnosis Vertigo Dizziness and giddiness documented in this encounter Advance Directives Documents on File Type Date Recorded Patient Log Chain Worker Expl anation Advanced Directive Advanced Directive [...] Camp Other Health Care Hayden r of Shale Planer Operator Princess Allen Other Health Care Pow er of Shale Planer Operator Care Teams Mine Wedge Sawyer Relationship Specialty Start Date End Date Kevin Whiteside DO [address] [address] PCP - General Family Medicine 05/01/18 documented as of this encounter
--- OUTSIDE RECORDS SUMMARY | 2023-06-01 04:44 | External Medical Summary | Summary of Care ---
Author Name Unknown Organization [place] [address] Care Team Providers Care Rn Child Name Role Phone Kevin Whitesidemelinda Primary Care Provider Encounter Details Date Type Department Care Team Description 12/15/2021 Documentation [facility], [facility] [address] [place] [address] Angi Herrera RN [address] [facility] [place] [address] Allergies Active Allergy Reactions Severity Noted Date Comments Codeine 07/08/2014 hallucination Pollen 05/18/2019 Heparin 09/04/2009 Heparin Induced Thrombocytopenia Hydrocodone Neuro complications (Please comment) 07/28/2020 Empagliflozin Other (Please comment) Medium 05/17/2018 3 yeast infections in 6 weeks after starting Morphine And Related 09/16/1997 Hallucinations Tetanus Toxoid Other (Please comment) 06/15/2011 Passed out documented as of this encounter (statuses as of 12/15/2021) Medications Medication Sig Dispensed Refills Start Date [...] 90 Cap 3 12/18/2019 Active DIURETIC TITRATION PLANIndications:Compact Assembler 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 1 Each 0 04/08/2020 Active Blood Glucose Monitoring Suppl (Calxeda ULTRA 2) w/Device KIT Use to test [...] as of this encounter (statuses as of 12/15/2021) Active Problems Problem Noted Date Acute deep [...] as of this encounter (statuses as of 12/15/2021) Resolved Problems Problem Noted Date Resolved Date [...] as of this encounter (statuses as of 12/15/2021) Immunizations Name Administration Dates Next Due COVID-19 [...] as of this encounter Progress Notes * Angi Herrera RN - 12/15/2021 2:15 PM EDT [facility] Enrollment Form Screening: Referral Source: No data was found Primary Reason for Referral (Select most relevant): No data was found Engagement: Engagement Attempt 1: No data was found Home Information: No data was found Advance Care Planning (ACP): No data was found Has Living Will or Advance Directive: No data was found Anticipated Sub-Program: No data was found Confirmation of Sub-Program Type (by care sales team member): Focused Care Management (3-9 months) Handoff Information: Current care team notified via: No data was found Current telemonitoring equipment: No data was found Patient was reviewed for [facility] sub-program assignment. Patient has been assigned to theFocused Care Management sub-program. Noted that patient's next upcoming [facility] appointment is scheduled for: 01/12/22. acp notes up to date. documented in this encounter Plan of Treatment Upcoming Encounters Date Type Specialty Care Team Description 12/23/2021 Office Visit Nephrology Erik Lenz MD [address] [place] [address] 12/25/2021 Home Visit Family Medicine Magaly Morales, Community Health Patient Transport Officer [address] [place] [address] 01/12/2022 Home Visit [facility] Vera Capellan RN [address] [place] [address] 01/21/2022 Office Visit Family Medicine Kevin Whiteside DO [address] [place] [address] 01/21/2022 Office Visit Pharmacy [facility] Jeramie [address] [place] [address] 02/18/2022 Office Visit Pulmonary Nikita Sanchez MD [address] [place] [address] 03/08/2022 Imaging Radiology 04/05/2022 Office Visit Cardiology Marjorie Powell PA-C [address] [place] [address] Scheduled Procedures Name Priority Associated Diagnoses Date/Ti [...] Additional history exists CKD PHOS USE SMARTSET 16498 03/12/202202/24, 11/17/2020, 12/24/2019, Additional history exists DIABETES-EYE EXAM 04/14/2022 04/14/2021, , 04/05/2019, Additional history exists CKD GFR USE SMARTSET 46326 06/09/202212/07, 11/27/2021, 03/20/2021, Additional history exists BASIC METABOLIC PANEL (BMP) FOR HTN YEARLY 12/07/2022 12/07/2021, 11/27/2021, 03/20/2021, Additional history exists CKD HGB USE SMARTSET 84045 12/07/202212/07, 12/07/2021, 11/27/2021, Additional history exists Colonoscopy: [...] Documents on File Type Date Recorded Patient Navy Seal Expl anation Advanced Directive Advanced Directive Advanced [...] Camp Other Health Care Hayden r of Load Dispatcher Princess Other Health Care Pow er of Load Dispatcher Care Teams Rn Child Relationship Specialty Start Date End Date Kevin Whiteside DO [address] [address] PCP - General Family Medicine 05/01/18 documented as of this encounter
--- OUTSIDE RECORDS SUMMARY | 2023-06-01 04:44 | External Medical Summary | Summary of Care ---
Author Name Unknown Organization [facility] Address [place] [address] Care Team Providers Care Form Building Supervisor Name Role Phone Kevin Whiteside DO Primary Care Provider Reason for Visit * Reason Onset Date Comments [facility]: Maintenance 12/10/2021 Encounter Details Date Type Department Care Team Description 12/10/2021 Scheduled Telephone [facility], [facility] [address] [place] [address] Coordinator, [facility] [address] [place] [address] Allergies Active Allergy Reactions Severity Noted Date [...] 90 Cap 3 12/18/2019 Active DIURETIC TITRATION PLANIndications:Conservation Science Teacher 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 1 Each 0 04/08/2020 Active Blood Glucose Monitoring Suppl (DynaOptics ULTRA 2) w/Device KIT Use to test [...] of 7.0%-8.0% ([facility]) Inject under the skin 60 Units [...] Active Amoxicillin-Pot Clavulanate 875-125 MG Oral TabletIndications:Ac ulysses non-recurrent frontal sinusitis Take by mouth 1 Tablet in the morning AND 1 Tablet before bedtime. Do all this for 10 days. 20 Tablet 0 12/01/2021 Active Hospital, Clinic, or Other Facility Administered [...] mRNA, LNP-s, No Pre serve, 2-Dose Series ([email or web address]) 12/29/2020,12/18/2020 Pneumococcal Polysaccharide PPV23 (Pneumovax) 08/22/2009,06/15/2006 Seasonal [...] Telephone Encounter - Karyn Clarke LPN - 12/10/2021 11:16 AM EDT 48 hour f/u phone call Spoke with patient Feeling slight improvement from yesterday Had some diarrhea this morning Having generalized overall body aches Taking tylenol Did eat breakfast this morning-had some estonian toast sticks, sausage, and homefries Staying well hydrated Breathing at her baseline Right leg is looking better Not as swollen Redness mostly gone Overall, only slight improvement from yesterday Aware this can take some time Scheduled for f/u phone call Tuesday Advised to call sooner with any worsening symptoms documented in this encounter Plan of Treatment Upcoming Encounters Date Type Specialty Care Team Description 12/14/2021 Scheduled Telephone [facility] Forming Tube Selector, [place] Cisneros [address] [place] [address] 12/23/2021 Office Visit Nephrology Erik Lenz MD [address] [place] [address] 12/25/2021 Home Visit Family Medicine Magaly Morales, Community Health Residential Mental Health Worker [address] [place] [address] 01/12/2022 Home Visit [facility] Vera Capellan RN [address] [place] [address] 01/21/2022 Office Visit Family Medicine Kevin Whiteside DO [address] [address] 01/21/2022 Office Visit Pharmacy [facility] Jeramie [address] [place] [address] 02/18/2022 Office Visit Pulmonary Nikita Sanchez MD [address] [place] [address] 03/08/2022 Imaging Radiology 04/05/2022 Office Visit Cardiology Marjorie Powell PA-C [address] [facility] [place] [address] Scheduled Procedures Name Priority Associated Diagnoses Date/Ti [...] Additional history exists CKD PHOS USE SMARTSET 31976 03/12/202202/24, 11/17/2020, 12/24/2019, Additional history exists DIABETES-EYE EXAM 04/14/2022 04/14/2021, , 04/05/2019, Additional history exists CKD GFR USE SMARTSET 82502 06/09/202212/07, 11/27/2021, 03/20/2021, Additional history exists BASIC METABOLIC PANEL (BMP) FOR HTN YEARLY 12/07/2022 12/07/2021, 11/27/2021, 03/20/2021, Additional history exists CKD HGB USE SMARTSET 84990 12/07/202212/07, 12/07/2021, 11/27/2021, Additional history exists Colonoscopy: [...] Documents on File Type Date Recorded Patient Dramatic Coach Expl anation Advanced Directive Advanced Directive Advanced [...] Camp Other Health Care Hayden r of Halver Machine Operator Princess Other Health Care Pow er of Halver Machine Operator Care Teams Form Building Supervisor Relationship Specialty Start Date End Date Kevin Whiteside DO [address] [address] PCP - General Family Medicine 05/01/18 documented as of this encounter
--- OUTSIDE RECORDS SUMMARY | 2023-06-01 04:44 | External Medical Summary | Summary of Care ---
Author Name Unknown Organization [facility] Address [place] [address] Care Team Providers Care Director Of Early Childhood Education Name Role Phone Kevin Whiteside DO Primary Care Provider Reason for Visit * Reason Onset Date Comments [facility]: Maintenance 12/14/2021 Encounter Details Date Type Department Care Team Description 12/14/2021 Scheduled Telephone [facility], [facility] [address] [place] [address] Coordinator, [facility] [address] [place] [address] Allergies Active Allergy Reactions Severity Noted Date Comments Codeine 07/08/2014 hallucination Pollen 05/18/2019 Heparin 09/04/2009 Heparin Induced Thrombocytopenia Hydrocodone Neuro complications (Please comment) 07/28/2020 Empagliflozin Other (Please comment) Medium 05/17/2018 3 yeast infections in 6 weeks after starting Morphine And Related 09/16/1997 Hallucinations Tetanus Toxoid Other (Please comment) 06/15/2011 Passed out documented as of this encounter (statuses as of 12/14/2021) Medications Medication Sig Dispensed Refills Start Date [...] 90 Cap 3 12/18/2019 Active DIURETIC TITRATION PLANIndications:Binder Layer 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 1 Each 0 04/08/2020 Active Blood Glucose Monitoring Suppl (YouScience ULTRA 2) w/Device KIT Use to test [...] of 7.0%-8.0% ([facility]) Inject under the skin 60 [...] as of this encounter (statuses as of 12/14/2021) Active Problems Problem Noted Date Acute deep [...] 10/14/2014 Overview: ICD-10 update of inactive term Herman filter in place 08/19/2014 History of pulmonary embolus (PE) 2013 Statin intolerance 07/16/2014 HTN, goal below 130/80 02/22/2014 Venous insufficiency 02/07/2013 ELISSA (obstructive sleep apnea) 09/16/2011 Overview: CPAP 11 cwp Mild, AHI 11.3 but with significant nocturnal hypoxemia Dicks Postsurgical hypothyroidism 06/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 documented as of this encounter (statuses as of 12/14/2021) Resolved Problems Problem Noted Date Resolved Date [...] as of this encounter (statuses as of 12/14/2021) Immunizations Name Administration Dates Next Due COVID-19 mRNA, LNP-s, No Pre serve, 2-Dose Series (EarDish) 12/29/2020,12/18/2020 Pneumococcal Polysaccharide PPV23 (Pneumovax) 08/22/2009,06/15/2006 Seasonal [...] Telephone Encounter - Karyn Clarke LPN - 12/14/2021 9:40 AM EDT Phone call f/u See note from 12/10 No answer Left message requesting return call to [facility] option 3 documented in this encounter Plan of Treatment Upcoming Encounters Date Type Specialty Care Team Description 12/23/2021 Office Visit Nephrology Erik Lenz MD [address] [place] [address] 12/25/2021 Home Visit Family Medicine Magaly Morales, Community Health Grain Broker [address] [place] [address] 01/12/2022 Home Visit [facility] Vera Capellan, RN [address] [place] [address] 01/21/2022 Office Visit Family Medicine Kevin Whiteside DO [address] [place] [address] 01/21/2022 Office Visit Pharmacy [facility] Jeramie [address] [place] [address] 02/18/2022 Office Visit Pulmonary Nikita Sanchez MD [address] [place] [address] 03/08/2022 Imaging Radiology 04/05/2022 Office Visit Cardiology Marjorie Powell PA-C [address] [place] [place] [address] Scheduled Procedures Name Priority Associated Diagnoses Date/Ti [...] Additional history exists CKD PHOS USE SMARTSET 81014 03/12/202202/24, 11/17/2020, 12/24/2019, Additional history exists DIABETES-EYE EXAM 04/14/2022 04/14/2021, , 04/05/2019, Additional history exists CKD GFR USE SMARTSET 81682 06/09/202212/07, 11/27/2021, 03/20/2021, Additional history exists BASIC METABOLIC PANEL (BMP) FOR HTN YEARLY 12/07/2022 12/07/2021, 11/27/2021, 03/20/2021, Additional history exists CKD HGB USE SMARTSET 69807 12/07/202212/07, 12/07/2021, 11/27/2021, Additional history exists Colonoscopy: [...] Documents on File Type Date Recorded Patient Sustainability Project Manager Expl anation Advanced Directive Advanced Directive [...] Camp Other Health Care Hayden r of Stab Setter And Driller Princess Allen Other Health Care Pow er of Stab Setter And Driller Care Teams Director Of Early Childhood Education Relationship Specialty Start Date End Date Kevin Whiteside DO [address] [address] PCP - General Family Medicine 05/01/18 documented as of this encounter
--- OUTSIDE RECORDS SUMMARY | 2023-06-01 04:44 | External Medical Summary | Summary of Care ---
Author Name Unknown Organization [place] [address] Care Team Providers Care Graphic Illustrator Name Role Phone Kevin Whiteside DO Primary Care Provider Reason for Visit * Reason Onset Date Comments NEW PATIENT 12/08/2021 LILI VILCHIS APPT Encounter Details Date Type Department Care Team Description 12/08/2021 Telephone Hematology/Oncology [facility] [address] [place] [address] Jo Zamarripa MD [address] [place] [address] NEW PATIENT (LILI LOPEZThad) Allergies Active Allergy [...] 90 Cap 3 12/18/2019 Active DIURETIC TITRATION PLANIndications:Poultry Farm Supervisor 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 1 Each 0 04/08/2020 Active Blood Glucose Monitoring Suppl (FreeGameCredits ULTRA 2) w/Device KIT Use to test [...] Active Amoxicillin-Pot Clavulanate 875-125 MG Oral TabletIndications:Ac samish non-recurrent frontal sinusitis Take by mouth 1 [...] 10/14/2014 Overview: ICD-10 update of inactive term [place] filter in place 08/19/2014 History of pulmonary [...] to schedule for HEM APPT. Left numberof [phone] Option 1. * Telephone Encounter - ELISSA Leonard - 12/08/2021 12:35 PM EDT Received referral for patient to be seen for HEM APPT. Called and lmom for patient to give us a call back to get scheduled. Left number of [phone] Option 1. documented in this encounter Plan of Treatment Upcoming Encounters Date Type Specialty Care Team Description 12/23/2021 Office Visit Nephrology Erik Lenz MD 200 [place] [address] 12/25/2021 Home Visit Family Medicine Magaly Morales, Community Health Supervisor [employer] [address] [place] [address] 01/12/2022 [facility] Visit [facility] Vera Capellan RN [address] [place] [address] 01/21/2022 Office Visit Family Medicine Kevin Whiteside DO [address] [place] [address] 01/21/2022 Office Visit Pharmacy [facility] Jeramie [address] [place] [address] 02/18/2022 Office Visit Pulmonary Nikita Sanchez MD [address] [place] [address] 03/08/2022 Imaging Radiology 04/05/2022 Office Visit Cardiology Marjorie Powell PA-C [address] [place] [address] Scheduled Procedures Name Priority Associated Diagnoses Date/Ti [...] Additional history exists CKD PHOS USE SMARTSET 05416 03/12/202202/24, 11/17/2020, 12/24/2019, Additional history exists DIABETES-EYE EXAM 04/14/2022 04/14/2021, , 04/05/2019, Additional history exists CKD GFR USE SMARTSET 98064 06/09/202212/07, 11/27/2021, 03/20/2021, Additional history exists BASIC METABOLIC PANEL (BMP) FOR HTN YEARLY 12/07/2022 12/07/2021, 11/27/2021, 03/20/2021, Additional history exists CKD HGB USE SMARTSET 81150 12/07/202212/07, 12/07/2021, 11/27/2021, Additional history exists Colonoscopy: [...] Documents on File Type Date Recorded Patient Tank Cooper Expl anation Advanced Directive Advanced Directive Advanced [...] Camp Other Health Care Hayden r of Laboratory Machinist Princess Allen Other Health Care Pow er of Laboratory Machinist Care Teams Graphic Illustrator Relationship Specialty Start Date End Date Kevin Whiteside DO [address] [place] [address] PCP - General Family Medicine 05/01/18 documented as of this encounter
--- OUTSIDE RECORDS SUMMARY | 2023-06-01 04:44 | External Medical Summary | Summary of Care ---
Author Name Unknown Organization [place] [address] Care Team Providers Care Search Lead Name Role Phone Kevin Whiteside DO Primary Care Provider Reason for Visit * Reason Onset Date Comments NEW PATIENT 12/08/2021 LILI VILCHIS APPT Encounter Details Date Type Department Care Team Description 12/08/2021 Telephone Hematology/Oncology [facility] [address] [place] [address] Jo Zamarripa MD 200 [place] [address] NEW PATIENT (LILI LOPEZThad) Allergies Active Allergy Reactions Severity Noted Date Comments Codeine 07/08/2014 hallucination Pollen 05/18/2019 Heparin 09/04/2009 Heparin Induced Thrombocytopenia Hydrocodone Neuro complications (Please comment) 07/28/2020 Empagliflozin Other (Please comment) Medium 05/17/2018 3 yeast infections in 6 weeks after starting Morphine And Related 09/16/1997 Hallucinations Tetanus Toxoid Other (Please comment) 06/15/2011 Passed out documented as of this encounter (statuses as of 12/16/2021) Medications Medication Sig Dispensed Refills Start Date [...] 90 Cap 3 12/18/2019 Active DIURETIC TITRATION PLANIndications:Strand And Binder Controller 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 1 Each 0 04/08/2020 Active Blood Glucose Monitoring Suppl ([employer] ULTRA 2) w/Device KIT Use to test [...] 7.0%-8.0% ([facility]) Inject 40 units with meals + sliding scale 1 units for every 25 units BG > 150. 121 mL 3 11/04/2021 Active Tresiba FlexTouch 100 UNIT/ML Subcutaneous Solution Pen-injector (Insulin Degludec)Indications :Type 2 diabetes mellitus with hemoglobin A1c goal of 7.0%-8.0% ([facility]) Inject under the skin 60 [...] Active Amoxicillin-Pot Clavulanate 875-125 MG Oral TabletIndications:Ac solomon non-recurrent frontal sinusitis Take by mouth 1 [...] as of this encounter (statuses as of 12/16/2021) Active Problems Problem Noted Date Acute deep [...] 10/14/2014 Overview: ICD-10 update of inactive term [place] filter in place 08/19/2014 History of pulmonary embolus (PE) 2013 Statin intolerance 07/16/2014 HTN, goal below 130/80 02/22/2014 Venous insufficiency 02/07/2013 ELISSA (obstructive sleep apnea) 09/16/2011 Overview: CPAP 11 cwp Mild, AHI 11.3 but with significant nocturnal hypoxemia Dicks Postsurgical hypothyroidism 06/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 documented as of this encounter (statuses as of 12/16/2021) Resolved Problems Problem Noted Date Resolved Date [...] as of this encounter (statuses as of 12/16/2021) Immunizations Name Administration Dates Next Due COVID-19 [...] call to get scheduled. Left number of [phone] Option 1 * Telephone Encounter - ELISSA Leonard - 12/15/2021 3:18 PM EDT Called X2 and lmom for patient to give our office a call back to schedule for HEM APPT. Left numberof [phone] Option 1. * Telephone Encounter - ELISSA Leonard - 12/08/2021 12:35 PM EDT Received referral for patient to be seen for HEM APPT. Called and lmom for patient to give us a call back to get scheduled. Left number of [phone] Option 1. documented in this encounter Plan of Treatment Upcoming Encounters Date Type Specialty Care Team Description 12/23/2021 Office Visit Nephrology Erik Lenz MD [address] [facility], [place] [address] 12/25/2021 Home Visit Family Medicine Magaly Morales, Community Health Line Patrolman [address] [place] [address] 01/12/2022 Home Visit [facility] Vera Capellan RN [address] [place] [address] 01/21/2022 Office Visit Family Medicine Kevin Whiteside DO [address] [place] [address] 01/21/20[facility] [address] [place] [address] 02/18/2022 Office Visit Pulmonary Nikita Sanchez MD [address] [place] [id number] 03/08/2022 Imaging Radiology 04/05/2022 Office Visit Cardiology Marjorie Powell PA-C 132 [facility] [place] [address] Scheduled Procedures Name Priority Associated Diagnoses Date/Ti [...] Additional history exists CKD PHOS USE SMARTSET 72867 03/12/202202/24, 11/17/2020, 12/24/2019, Additional history exists DIABETES-EYE EXAM 04/14/2022 04/14/2021, , 04/05/2019, Additional history exists CKD GFR USE SMARTSET 90208 06/09/202212/07, 11/27/2021, 03/20/2021, Additional history exists BASIC METABOLIC PANEL (BMP) FOR HTN YEARLY 12/07/2022 12/07/2021, 11/27/2021, 03/20/2021, Additional history exists CKD HGB USE SMARTSET 58411 12/07/202212/07, 12/07/2021, 11/27/2021, Additional history exists Colonoscopy: [...] Documents on File Type Date Recorded Patient Road Machinery Inspector Expl anation Advanced Directive Advanced Directive [...] Camp Other Health Care Hayden r of Supervisor Correspondence Section Princess Allen Other Health Care Pow er of Supervisor Correspondence Section Care Teams Search Lead Relationship Specialty Start Date End Date Kevin Whiteside DO [address] [place] [address] PCP - General Family Medicine 05/01/18 documented as of this encounter
--- OUTSIDE RECORDS SUMMARY | 2023-06-01 04:45 | External Medical Summary | Summary of Care ---
Author Name Unknown Organization [place] [address] Care Team Providers Care Oil Derrick Operator Name Role Phone Kevin Whiteside DO Primary Care Provider Reason for Visit * Reason Onset Date Comments Call Back 12/07/2021 Encounter Details Date Type Department Care Team Description 12/07/2021 [facility]phone [facility] [place] [address] [facility] [address] [facility] [place] [address] Call Back Allergies Active Allergy Reactions Severity Noted Date Comments Codeine 07/08/2014 hallucination Pollen 05/18/2019 Heparin 09/04/2009 Heparin Induced Thrombocytopenia Hydrocodone Neuro complications (Please comment) 07/28/2020 Empagliflozin Other (Please comment) Medium 05/17/2018 3 yeast infections in 6 weeks after starting Morphine And Related 09/16/1997 Hallucinations Tetanus Toxoid Other (Please comment) 06/15/2011 Passed out documented as of this encounter (statuses as of 12/07/2021) Medications Medication Sig Dispensed Refills Start Date [...] 90 Cap 3 12/18/2019 Active DIURETIC TITRATION PLANIndications: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 1 Each 0 04/08/2020 Active Blood Glucose Monitoring Suppl (Phosphagenics ULTRA 2) w/Device KIT Use to test [...] 7.0%-8.0% ([facility]) Inject 40 units with meals + sliding scale 1 units for every 25 units BG > 150. 121 mL 3 11/04/2021 Active Tresiba FlexTouch 100 UNIT/ML Subcutaneous Solution Pen-injector (Insulin Degludec)Indications :Type 2 diabetes mellitus with hemoglobin A1c goal of 7.0%-8.0% ([facility]) Inject under the skin 60 [...] Active Amoxicillin-Pot Clavulanate 875-125 MG Oral TabletIndications:Ac [place] non-recurrent frontal sinusitis Take by mouth 1 Tablet in the morning AND 1 Tablet before bedtime. Do all this for 10 days. 20 Tablet 0 12/01/2021 2 Active Hospital, Clinic, or Other Facility Administered Medication Ordered Dose Route Frequency Start Date End Date Status Albuterol Sulfate (Proventil) (2.5 MG/3ML) 0.083% inhalation solution 2.5 mgIndications:Chronic hypoxemic respiratory failure (HCC) 2.5 mg NEBULIZER Q4H PRN 10/08/2021 Active documented as of this encounter (statuses as of 12/07/2021) Active Problems Problem Noted Date Acute deep [...] 10/14/2014 Overview: ICD-10 update of inactive term [place] filter in place 08/19/2014 History of pulmonary embolus (PE) 2013 Statin intolerance 07/16/2014 HTN, goal below 130/80 02/22/2014 Venous insufficiency 02/07/2013 ELISSA (obstructive sleep apnea) 09/16/2011 Overview: CPAP 11 cwp Mild, AHI 11.3 but with significant nocturnal hypoxemia Dicks Postsurgical hypothyroidism 06/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 documented as of this encounter (statuses as of 12/07/2021) Resolved Problems Problem Noted Date Resolved Date [...] as of this encounter (statuses as of 12/07/2021) Immunizations Name Administration Dates Next Due COVID-19 [...] encounter Miscellaneous Notes * Telephone Encounter - Mina Alonzo, [facility] - 12/07/2021 1:16 PM EDT Called and spoke with patient directly. Patient reports that she feels like she has the "flu" recently ([facility] nurse to follow up with patient tomorrow). Patient does mention that the swelling in her legs has improved since being started on eliquis (which is an indicator of at least partial resolutionof DVTs). Informed patient that eliquis is unlikely to cause flu like symptoms. Patient reportedly had no remaining questions. [facility] will sign off at this time as no further management is required by [facility] for Eliquis. Mina Alonzo [facility] Clinical Pharmacist 12/07/2021, 1:19 PM * Telephone Encounter - CHALO Park - 12/07/2021 12:58 PM EDT Patient calling in today and states she was returning a call to Brian. She requests he call her back at [phone] Thank you, Brianna Quinones Incinerator Plant Supervisor 12/07/2021,12:59 PM documented in this encounter Plan of Treatment Upcoming Encounters Date Type Specialty Care Team Description 12/07/2021 Anticoagulation Pharmacy [facility] [address] [place] [address] Acute deep vein thrombosis (DVT) of proximal vein of lower extremity, unspecified laterality (HCC)* 12/08/2021 Scheduled Telephone [facility] Supervisor [employer] Former, [facility] [address] [place] [address] 12/09/2021 Scheduled Telephone [facility] Super[employer] Former, [facility] [address] [place] [address] 12/23/2021 Office Visit Nephrology Erik Lenz MD [address] [place], [place] [address] 12/25/2021 Home Visit Family Medicine Magaly Morales, Community Health Umbrella Cutter [address] [facility] [address] 01/12/2022 [facility] Visit [facility] Vera Capellan, RN [address] [place] [address] 01/21/2022 Office Visit Family Medicine Kevin Whiteside DO [address] [place] [address] 01/21/2022 Office Visit Pharmacy [facility] [address] [place] [address] 02/18/2022 Office Visit Pulmonary Nikita Sanchez MD [address] [place] [address] 03/08/2022 Imaging Radiology 04/05/2022 Office Visit Cardiology Marjorie Powell PA-C [address] [place] [address] Scheduled Procedures Name Priority Associated Diagnoses Date/Ti [...] Additional history exists CKD PHOS USE SMARTSET 08145 03/12/202202/24, 11/17/2020, 12/24/2019, Additional history exists DIABETES-EYE EXAM 04/14/2022 04/14/2021, , 04/05/2019, Additional history exists CKD GFR USE SMARTSET 76759 05/30/202211/27, 03/20/2021, 03/12/2021, Additional history exists BASIC METABOLIC PANEL (BMP) FOR HTN YEARLY 11/27/2022 11/27/2021, 03/20/2021, 03/12/2021, Additional history exists CKD HGB USE SMARTSET 87229 11/27/202211/27, 03/20/2021, 03/20/2021, Additional history exists Colonoscopy: Ages 45-75 02/17/2026 [...] on File Type Date Recorded Patient Metal Flow Coordinator Expl anation Advanced Directive Advanced Directive [...] Camp Other Health Care Hayden r of Nutrient Management Specialist Princess Staplesfany Other Health Care Pow er of Nutrient Management Specialist Care Teams Oil Derrick Operator Relationship Specialty Start Date End Date Kevin Whiteside DO [address] [place] [address] PCP - General Family Medicine 05/01/18 documented as of this encounter
--- OUTSIDE RECORDS SUMMARY | 2023-06-01 04:45 | External Medical Summary | Summary of Care ---
Author Name Unknown Organization [place] [address] Care Team Providers Care Director Strategic Planning Name Role Phone Kevin Whiteside DO Primary Care Provider Reason for Visit * Reason Onset Date Comments NEW PATIENT 12/08/2021 LILI VILCHIS APPT Encounter Details Date Type Department Care Team Description 12/08/2021 Telephone Hematology/Oncology [facility] [address] [place] [address] Jo Zamarripa MD [address] [place] [address] NEW PATIENT (LILI LOPEZThad) Allergies Active Allergy Reactions Severity Noted Date Comments Codeine 07/08/2014 hallucination Pollen 05/18/2019 Heparin 09/04/2009 Heparin Induced Thrombocytopenia Hydrocodone Neuro complications (Please comment) 07/28/2020 Empagliflozin Other (Please comment) Medium 05/17/2018 3 yeast infections in 6 weeks after starting Morphine And Related 09/16/1997 Hallucinations Tetanus Toxoid Other (Please comment) 06/15/2011 Passed out documented as of this encounter (statuses as of 12/08/2021) Medications Medication Sig Dispensed Refills Start Date [...] 90 Cap 3 12/18/2019 Active DIURETIC TITRATION PLANIndications:Protocol Manager 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 1 Each 0 04/08/2020 Active Blood Glucose Monitoring Suppl (earthmine ULTRA 2) w/Device KIT Use to test [...] Active Amoxicillin-Pot Clavulanate 875-125 MG Oral TabletIndications:Ac [place] non-recurrent frontal sinusitis Take by mouth 1 [...] as of this encounter (statuses as of 12/08/2021) Active Problems Problem Noted Date Acute deep [...] 10/14/2014 Overview: ICD-10 update of inactive term [place] filter in place 08/19/2014 History of pulmonary embolus (PE) 2013 Statin intolerance 07/16/2014 HTN, goal below 130/80 02/22/2014 Venous insufficiency 02/07/2013 ELISSA (obstructive sleep apnea) 09/16/2011 Overview: CPAP 11 cwp Mild, AHI 11.3 but with significant nocturnal hypoxemia Dicks Postsurgical hypothyroidism 06/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 documented as of this encounter (statuses as of 12/08/2021) Resolved Problems Problem Noted Date Resolved Date [...] as of this encounter (statuses as of 12/08/2021) Immunizations Name Administration Dates Next Due COVID-19 [...] back to get scheduled. Left number of [phone] Option 1. documented in this encounter Plan of Treatment Upcoming Encounters Date Type Specialty Care Team Description 12/09/2021 Scheduled Telephone [facility] Small Products Ii Assembler, [place] Cisneros [address] [place] [address] 12/23/2021 Office Visit Nephrology Erik Lenz MD [address] [facility] [place] [address] 12/25/2021 Home Visit Family Medicine Magaly Morales, Community Health Homicide Investigator [address] [place] [address] 01/12/2022 Home Visit [facility] Vera Capellan RN [address] [place] [address] 01/21/2022 Office Visit Family Medicine Kevin Whiteside DO [address] [place] [address] 01/21/2022 Office Visit Pharmacy [facility] [address] [place] [address] 02/18/2022 Office Visit Pulmonary Nikita Sanchez MD [address] [place] [address] 03/08/2022 Imaging Radiology 04/05/2022 Office Visit Cardiology Marjorie Powell PA-C [address] [place] [address] Scheduled Procedures Name Priority Associated Diagnoses Date/Ti [...] Additional history exists CKD PHOS USE SMARTSET 02168 03/12/202202/24, 11/17/2020, 12/24/2019, Additional history exists DIABETES-EYE EXAM 04/14/2022 04/14/2021, , 04/05/2019, Additional history exists CKD GFR USE SMARTSET 96176 06/09/202212/07, 11/27/2021, 03/20/2021, Additional history exists BASIC METABOLIC PANEL (BMP) FOR HTN YEARLY 12/07/2022 12/07/2021, 11/27/2021, 03/20/2021, Additional history exists CKD HGB USE SMARTSET 29876 12/07/202212/07, 12/07/2021, 11/27/2021, Additional history exists Colonoscopy: [...] Documents on File Type Date Recorded Patient Compound Coating Machine Offbearer Expl anation Advanced Directive Advanced Directive Advanced [...] Camp Other Health Care Hayden r of Physics Department Chair Princess Staplesfany Other Health Care Pow er of Physics Department Chair Care Teams Director Strategic Planning Relationship Specialty Start Date End Date Kevin Whiteside DO [address] [place] [address] PCP - General Family Medicine 05/01/18 documented as of this encounter
--- OUTSIDE RECORDS SUMMARY | 2023-06-01 04:45 | External Medical Summary | Summary of Care ---
Author Name Unknown Organization [facility] Address [place] [address] Care Team Providers Care Office Machines Sales 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 Name Role Phone Kevin Whiteside DO Primary Care Provider Reason for Visit * Reason Onset Date Comments [facility]: Maintenance 12/08/2021 Encounter Details Date Type Department Care Team Description 12/08/2021 Scheduled Telephone [facility], [facility] [address] [place] [address] Coordinator, [facility] [address] [place] [address] Allergies Active Allergy Reactions Severity Noted Date [...] Cap 3 12/18/2019 Active DIURETIC TITRATION PLANIndications: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 1 Each 0 04/08/2020 Active Blood Glucose Monitoring Suppl (CareCloud ULTRA 2) w/Device KIT Use to test [...] mRNA, LNP-s, No Pre serve, 2-Dose Series (Liquid State) 12/29/2020,12/18/2020 Pneumococcal Polysaccharide PPV23 (Pneumovax) 08/22/2009,06/15/2006 Seasonal [...] encounter Miscellaneous Notes * Telephone Encounter - Angi CHUYITA Flores - 12/08/2021 12:39 PM EDT Left generic message on answering machine asking pt to return our call. Provided call back number Opt 3 * Telephone Encounter - Dain Ireland DO - 12/08/2021 11:38 AM EDT Labs are normal/stable. Respiratory panel negative. No explanation for symptoms on labs done yesterday * Telephone Encounter - Angi Flores LPN - 12/08/2021 11:19 AM EDT Please review, prior to f/up call to pt. Thank you. Component Latest Ref Rng & Units 12/07/2021 WBC 4.00 - 10.80 K/uL 9.37 Neutrophils % 40.0 - 75.0 % 70.5 Lymphocytes % 18.0 - 42.0 % 17.0 (L) Monocytes % 1.0 - 11.0 % 4.7 Eosinophils % 0.0 - 6.0 % 6.3 (H) Basophils % 0.0 - 2.0 % 0.5 Immature Granulocytes % 0.0 - 2.0 % 1.0 Absolute Neutrophils 1.80 - 7.70 K/uL 6.61 Absolute Lymphocytes 1.00 - 4.80 K/ul 1.59 Absolute Monocytes 0.00 - 1.10 K/uL 0.44 Absolute Eosinophils 0.00 - 0.70 K/uL 0.59 Absolute Basophils 0.00 - 0.20 K/uL 0.05 Absolute Immature Granulocytes 0.00 - 0.20 K/uL 0.09 WBC 4.00 - 10.80 K/uL 9.37 RBC 3.85 - 5.15 M/uL 4.06 HGB 12.0 - 15.3 g/dL 12.5 HCT 36.0 - 45.2 % 41.7 MCV 81.5 - 97.5 fL 102.7 (H) MCH 27.0 - 34.0 pg 30.8 MCHC 32.0 - 36.0 g/dL 30.0 (L) RDW 11.5 - 15.5 % 15.7 (H) MPV 6.6 - 11.1 fL 10.6 nRBCs <=0 /100 WBCs 0 PLT 140 - 400 K/uL 256 BUN 6 - 20 mg/dL 19 Creatinine 0.5 - 1.0 mg/dL 1.6 (H) Estimated Glomerular Filtration Rate >=60 mL/min 36 (L) Sodium 135 - 146 mmol/L 141 Potassium 3.5 - 5.1 mmol/L 3.8 Chloride 98 - 107 mmol/L 96 (L) CO2 22 - 32 mmol/L 31 Anion Gap 7 - 15 mmol/L 14 Glucose 70 - 120 mg/dL 160 (H) Calcium 8.4 - 10.2 mg/dL 8.5 documented in this encounter Plan of Treatment Upcoming Encounters Date Type Specialty Care Team Description 12/09/2021 Scheduled Telephone [facility], [facility] [address] [place] [address] 12/23/2021 Office Visit Nephrology Erik Lenz MD [address] [place] [address] 12/25/2021 Home Visit Family Medicine Magaly Morales, [facility] Underground Heavy Equipment Operator [address] [place] [address] 01/12/2022 Home Visit [facility] Vera Capellan RN [address] [place] [address] 01/21/2022 Office Visit Family Medicine Kevin Whiteside DO [address] [place] [address] 01/21/2022 Office Visit Pharmacy Ord[facility] [place] [address] [place] [address] 02/18/2022 Office Visit Pulmonary Nikita Sanchez MD [address] [place] [address] 03/08/2022 Imaging Radiology 04/05/2022 Office Visit Cardiology Marjorie Powell PA-C 132 [facility] [place] [address] Scheduled Procedures Name Priority Associated Diagnoses Date/Ti [...] Additional history exists CKD PHOS USE SMARTSET 05012 03/12/202202/24, 11/17/2020, 12/24/2019, Additional history exists DIABETES-EYE EXAM 04/14/2022 04/14/2021, , 04/05/2019, Additional history exists CKD GFR USE SMARTSET 23935 06/09/202212/07, 11/27/2021, 03/20/2021, Additional history exists BASIC METABOLIC PANEL (BMP) FOR HTN YEARLY 12/07/2022 12/07/2021, 11/27/2021, 03/20/2021, Additional history exists CKD HGB USE SMARTSET 65030 12/07/202212/07, 12/07/2021, 11/27/2021, Additional history exists Colonoscopy: [...] Documents on File Type Date Recorded Patient Puttier Expl anation Advanced Directive Advanced Directive Advanced [...] Camp Other Health Care Hayden r of Sociology Professor Princess Allen Other Health Care Pow er of Sociology Professor Care Teams Office Machines Sales 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 Relationship Specialty Start Date End Date Kevin Whiteside DO [address] [place] [address] [phone] PCP - General Family Medicine 05/01/18 documented as of this encounter
--- OUTSIDE RECORDS SUMMARY | 2023-06-01 04:45 | External Medical Summary | Summary of Care ---
Author Name Unknown Organization [facility] Address [place] [address] Care Team Providers Care Orthopedic Assistant Name Role Phone Kevin Whiteside DO Primary Care Provider Reason for Visit * Reason Onset Date Comments [facility]: Maintenance 12/07/2021 Encounter Details Date Type Department Care Team Description 12/07/2021 Telephone [facility], [facility] [address] [facility] [place] [address] [facility], Nurse [facility] [address] [facility] [place] [address] [facility]: Maintenance Allergies Active Allergy [...] 90 Cap 3 12/18/2019 Active DIURETIC TITRATION PLANIndications:Life Insurance Sales Agent 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 1 Each 0 04/08/2020 Active Blood Glucose Monitoring Suppl (MicroCoal ULTRA 2) w/Device KIT Use to test [...] 10/14/2014 Overview: ICD-10 update of inactive term Superior filter in place 08/19/2014 History of pulmonary [...] Telephone Encounter - Dain Ireland DO - 12/07/2021 10:00 AM EDT [facility] Phone Encounter Quick Links: Assessment and Recommendations: Problem List Items Addressed This Visit None Visit Diagnoses Body aches - Primary Relevant Orders RESPIRATORY PATHOGEN PANEL, PCR BASIC METABOLIC PANEL CBC WITH WBC DIFFERENTIAL Chills Relevant Orders RESPIRATORY PATHOGEN PANEL, PCR BASIC METABOLIC PANEL CBC WITH WBC DIFFERENTIAL Malaise and fatigue Relevant Orders RESPIRATORY PATHOGEN PANEL, PCR BASIC METABOLIC PANEL CBC WITH WBC DIFFERENTIAL Addt'l Comments: Agree with visit today CBC, BMP, respiratory panel ordered. Further recommendations after RN evaluation To Do: Please see below for follow up items to be completed and correspondence: Agree with advice given and plan of care. No further action needed. Routed to sender as an FYI that message was addressed. Dain Ireland DO [facility] - [facility] 12/07/2021 Scheduled appointments in the next 60 days: Future Appointments-next 60 days Date/Time Provider Specialty Dept Phone 12/07/2021 5:30 PM [facility] [phone] 12/08/2021 10[facility] [phone] 12/09/2021 10:15 AM [facility] [phone] 12/23/2021 11:00 AM Erik Lenz MD Nephrology [phone] 12/25/2021 1:00 PM Magaly Morales, [facility] Facility Service Associate Family [facility] [phone] 01/12/2022 10:00 AM Vera Capellan RN [facility] [phone] 01/21/2022 2:00 PM (Arrive by 1:45 PM) Kevin Whiteside DO [facility] [phone] 01/21/2022 3:00 PM [facility] [phone] 02/18/2022 2:20 PM (Arrive by 2:05 PM) Nikita Sanchez MD Pulmonary [phone] 03/08/2022 2:[address] Radiology [phone] 04/05/2022 1:30 PM (Arrive by 1:15 PM) Marjorie Powell PA-C Cardiology [phone] * Telephone Encounter - Rosio Galan RN - 12/07/2021 9:20 AM EDT Communication Note Name: Alejandro García Situation: Patient calling into [facility] intake stating she does not feel well, would like to be seen Background: Diabetes, obesity, DVT to leg, CHF, CKD, HTN, sleep apnea, GERD, spinal stenosis Assessment: 66 year old female that is calling [facility] to report that she started on Eliquis one week ago, has low grade fever, 99.4, body aches all over, +chills, -wheezing, +fatigue wears O2@3lpm, SPo2-93%, HR-94. BLE's are swollen/red, right leg is improving, does elevate her legs at all times. Recommendation: To be seen today Care team availability: GPS (location): Network fleet not working Acute nurse: Brooke Jose [facility]: NA [place] [facility] economics faculty member Acute Call Date: 12/07/2021 Time: 9:20 AM Name: Stephanie Camp : 1955 Caller: Stephanie Relationship to self No chief complaint on file. HPI: Stephanie Camp is a 66 year old female that is calling [facility] Int[facility] to report that she started on Eliquis one week ago, has low grade fever, 99.4, body aches all over, +chills, -wheezing, +fatigue wears O2@3lpm, SPo2-93%, HR-94. BLE's are swollen/red, right leg is improving, does elevate her legs at all times. Nursing Assessment: Patient's chief complaint for this call: Other, describe does not feel well Pain Has pain Pain level: 7 Location: body aches Quality of Pain: aching Does the pain radiate: Yes Location(s) pain is radiating to: aches Baseline Assessment Able to performing ADLs at baseline (walking, daily tasks, etc.): Yes Chief Complaint is related to a chronic condition: Unknown Patient prescribed oxygen? Yes, 3L/min Patient has been ordered DME equipment (assistive devices, respiratory equipment, etc.): Yes Describe DME devices: Patient is using DME device as directed: Unknown Medication Reconciliation: Received flu shot this season: Yes Taking medication as ordered: Yes Medications ordered/taking to treat reason for call: No Heart failure symptoms: Unknown COPD exacerbation symptoms: Unknown Reinforcement Education: Brooke Jose to see patient now Treatment/Plan: Level of call: Acute Appointment scheduled for same day: Yes Grinder Chipper Provider Name: Brooke Jose Call back instructions provided to patient. ROMEO Capps Legal Billing Analyst [facility] documented in this encounter Plan of Treatment Upcoming Encounters Date Type Specialty Care Team Description 12/07/2021 Anticoagulation Pharmacy Ord[facility], [facility] [place] 132 [facility] [place] [address] Acute deep vein thrombosis (DVT) of proximal vein of lower extremity, unspecified laterality (HCC)* 12/08/2021 Scheduled Telephone [facility], [facility] [address] 12/09/2021 Scheduled Telephone [facility] Teacher, [facility] 132 [facility] [place] [address] 12/23/2021 Office Visit Nephrology Erik Lenz MD [address] [place] [address] 12/25/2021 Home Visit Family Medicine Magaly Morales, [facility] Facility Service Associate [address] [place] [address] 01/12/2022 Home Visit [facility] Capellan [facility] 132 [facility] [address] 01/21/2022 Office Visit Family Medicine Kevin Whiteside [address] [place] [address] 01/21/2022 Office Visit Pharmacy Ord[facility] [place] [address] [place] [address] 02/18/2022 Office Visit Pulmonary Nikita Sanchez MD [address] [facility] [address] 03/08/2022 Imaging Radiology 04/05/2022 Office Visit Cardiology Marjorie Powell PA-C [address] [place] [address] Pending Results Name Type Priority Associated Diagnoses Date /Time RESPIRATORY PATHOGEN PANEL, PCR Lab Routine Body aches Chills Malaise and fatigue 12/07/2021 11:57 AM EDT BASIC METABOLIC PANEL Lab Routine Body aches Chills Malaise and fatigue 12/07/2021 11:57 AM EDT CBC WITH WBC DIFFERENTIAL Lab Routine Body aches Chills Malaise and fatigue 12/07/2021 11:57 AM EDT Scheduled Orders Name Type Priority Associated Diagnoses Orde r Schedule RESPIRATORY PATHOGEN PANEL, PCR Lab Routine Body aches Chills Malaise and fatigue Expected: 12/07/2021 (Approximate), Expires: 12/07/2022 BASIC METABOLIC PANEL Lab Routine Body aches Chills Malaise and fatigue Expected: 12/07/2021 (Approximate), Expires: 12/07/2022 CBC WITH WBC DIFFERENTIAL Lab Routine Body aches Chills Malaise and fatigue Expected: 12/07/2021 (Approximate), Expires: 12/07/2022 Scheduled Procedures Name Priority Associated Diagnoses Date/Ti [...] Additional history exists CKD PHOS USE SMARTSET 65433 03/12/202202/24, 11/17/2020, 12/24/2019, Additional history exists DIABETES-EYE EXAM 04/14/2022 04/14/2021, , 04/05/2019, Additional history exists CKD GFR USE SMARTSET 07407 05/30/202211/27, 03/20/2021, 03/12/2021, Additional history exists BASIC METABOLIC PANEL (BMP) FOR HTN YEARLY 11/27/2022 11/27/2021, 03/20/2021, 03/12/2021, Additional history exists CKD HGB USE SMARTSET 80784 11/27/202211/27, 03/20/2021, 03/20/2021, Additional history exists Colonoscopy: [...] of lower extremity, unspecified laterality (HCC)- Primary Body aches- Primary Generalized pain Chills Chills (without fever) Malaise and fatigue Other malaise and fatigue documented in this encounter Advance Directives Documents on File Type Date Recorded Patient Stock Fitter Expl anation Advanced Directive Advanced Directive Advanced [...] Camp Other Health Care Hayden r of Heavy Equipment Operator Apprentice Princess Allen Other Health Care Pow er of Heavy Equipment Operator Apprentice Care Teams Orthopedic Assistant Relationship Specialty Start Date End Date Kevin Whiteside DO 132 [facility] [place] [address] PCP - General Family Medicine 05/01/18 documented as of this encounter
--- OUTSIDE RECORDS SUMMARY | 2023-06-01 04:45 | External Medical Summary | Summary of Care ---
Author Name Unknown Organization [place] [address] Care Team Providers Care Guest Service Team Leader Name Role Phone Kevin Whiteside DO Primary Care Provider Reason for Visit * Reason Onset Date Comments COVID-19 Screening 12/08/2021 Encounter Details Date Type Department Care Team Description 12/08/2021 Telephone COVID19 Screening [facility] DEPT CLOSED 07/07/21 [address] [place] [phone], Automated Provider COVID-19 Screening Allergies Active Allergy Reactions Severity Noted Date Comments Codeine 07/08/2014 hallucination Pollen 05/18/2019 Heparin 09/04/2009 Heparin Induced Thrombocytopenia Hydrocodone Neuro complications (Please comment) 07/28/2020 Empagliflozin Other (Please comment) Medium 05/17/2018 3 yeast infections in 6 weeks after starting Morphine And Related 09/16/1997 Hallucinations Tetanus Toxoid Other (Please comment) 06/15/2011 Passed out documented as of this encounter (statuses as of 12/09/2021) Medications Medication Sig Dispensed Refills Start Date [...] 90 Cap 3 12/18/2019 Active DIURETIC TITRATION PLANIndications:Car Park Attendant 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 1 Each 0 04/08/2020 Active Blood Glucose Monitoring Suppl (Barnebys ULTRA 2) w/Device KIT Use to test [...] 7.0%-8.0% ([facility]) Inject under the skin 60 Units [...] Active Amoxicillin-Pot Clavulanate 875-125 MG Oral TabletIndications:Ac council non-recurrent frontal sinusitis Take by mouth 1 [...] as of this encounter (statuses as of 12/09/2021) Active Problems Problem Noted Date Acute deep [...] as of this encounter (statuses as of 12/09/2021) Resolved Problems Problem Noted Date Resolved Date [...] as of this encounter (statuses as of 12/09/2021) Immunizations Name Administration Dates Next Due COVID-19 [...] Miscellaneous Notes * Telephone Encounter - Barrie Guerra - 12/09/2021 12:22 AM EDT Outreach Attempts IVR Call Dec 08 2021 9:12AM Answered - Failed to Authenticate IVR Message: Unsuccessful contact, no education provided documented in this encounter Plan of Treatment Upcoming Encounters Date Type Specialty Care Team Description 12/09/2021 Scheduled Telephone [facility], [place] Cisner[place] [address] [place] [address] 12/23/2021 Office [facility] [address] 12/25/2021 Home Visit Family Medicine Magaly Morales, [facility] Surgical Instrument Maker [address] [place] [address] 01/12/2022 Home Visit [facility] Vera Capellan RN [address] [place] [address] 01/21/2022 Office Visit Family Medicine Kevin Whiteside DO [address] [place] [address] 01/21/2022 Office Visit Pharmacy [facility] [place] [address] [place] [address] 02/18/2022 Office Visit Pulmonary Nikita Sanchez MD [address] [place] [phone] 03/08/2022 Imaging Radiology 04/05/2022 Office Visit Cardiology Marjorie Powell PA-C [address] [place] [address] Scheduled Procedures Name Priority Associated Diagnoses Date/Ti [...] Additional history exists CKD PHOS USE SMARTSET 09869 03/12/202202/24, 11/17/2020, 12/24/2019, Additional history exists DIABETES-EYE EXAM 04/14/2022 04/14/2021, , 04/05/2019, Additional history exists CKD GFR USE SMARTSET 78312 06/09/202212/07, 11/27/2021, 03/20/2021, Additional history exists BASIC METABOLIC PANEL (BMP) FOR HTN YEARLY 12/07/2022 12/07/2021, 11/27/2021, 03/20/2021, Additional history exists CKD HGB USE SMARTSET 64621 12/07/202212/07, 12/07/2021, 11/27/2021, Additional history exists Colonoscopy: [...] Documents on File Type Date Recorded Patient Appliance Painter And Refinisher Expl anation Advanced Directive Advanced Directive Advanced [...] Camp Other Health Care Hayden r of Chief Program Officer Princess Allen Other Health Care Pow er of Chief Program Officer Care Teams Guest Service Team Leader Relationship Specialty Start Date End Date Kevin Whiteside DO [address] [place] [address] [address] PCP - General Family Medicine 05/01/18 documented as of this encounter
--- OUTSIDE RECORDS SUMMARY | 2023-06-01 04:45 | External Medical Summary | Summary of Care ---
Author Name Unknown Organization [place] [address] Care Team Providers Care Book Salesman Name Role Phone Kevin Whiteside DO Primary Care Provider Reason for Visit * Reason Onset Date Comments COVID-19 Screening 12/09/2021 Encounter Details Date Type Department Care Team Description 12/09/2021 Telephone COVID19 Screening [facility] DEPT CLOSED 07/07/21 [address] [place] [phone], Automated Provider COVID-19 Screening Allergies Active Allergy [...] 90 Cap 3 12/18/2019 Active DIURETIC TITRATION PLANIndications:Policy And Planning Manager 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 1 Each 0 04/08/2020 Active Blood Glucose Monitoring Suppl (crobo ULTRA 2) w/Device KIT Use to test [...] 7.0%-8.0% ([facility]) Inject under the skin 60 [...] Active Amoxicillin-Pot Clavulanate 875-125 MG Oral TabletIndications:Ac [place] non-recurrent frontal sinusitis Take by mouth 1 [...] Notes * Telephone Encounter - Covid Results [facility] - 12/09/2021 11:30 PM EDT Outreach Attempts IVR Call Dec 09 2021 9:08AM Voicemail - Voicemail IVR Message: Marilou Brown. This is [facility] calling to let you know you have test results available. You can access this result in your [facility] account under 'Test & Lab Results'. If you are not enrolledin [facility], you can create an account by going to [email or web address]. You can also call back at [phone] or we will attempt to reach you later tomorrow. documented in this encounter Plan of Treatment Upcoming Encounters Date Type Specialty Care Team Description 12/10/2021 [facility]uled [facility] [place], [place] Cisneros [address] [place] [address] 12/23/2021 Office Visit Nephrology Erik Lenz MD [address] [place], [place] [phone] 12/25/2021 Home Visit Family Medicine Magaly Morales, Community [facility] Medical Practice Manager [address] [place] [address] 01/12/2022 [facility] Vera Capellan RN [address] [place] [address] 01/21/2022 Office Visit Family Medicine Kevin Whiteside DO [address] [place] [address] 01/21/2022 Office Visit Pharmacy Ord[facility], [facility] [place] [address] [address] 02/18/2022 Office Visit Pulmonary Nikita Sanchez MD [address] [place] [phone] 03/08/2022 Imaging Radiology 04/05/2022 Office Visit Cardiology Marjorie Powell PA-C [address] [place] [address] Scheduled Procedures Name Priority Associated Diagnoses Date/Ti [...] Additional history exists CKD PHOS USE SMARTSET 71123 03/12/202202/24, 11/17/2020, 12/24/2019, Additional history exists DIABETES-EYE EXAM 04/14/2022 04/14/2021, , 04/05/2019, Additional history exists CKD GFR USE SMARTSET 33759 06/09/202212/07, 11/27/2021, 03/20/2021, Additional history exists BASIC METABOLIC PANEL (BMP) FOR HTN YEARLY 12/07/2022 12/07/2021, 11/27/2021, 03/20/2021, Additional history exists CKD HGB USE SMARTSET 06017 12/07/202212/07, 12/07/2021, 11/27/2021, Additional history exists Colonoscopy: [...] Documents on File Type Date Recorded Patient Culled Fruit Packer Expl anation Advanced Directive Advanced Directive Advanced [...] Camp Other Health Care Hayden r of Medical Collector Princess Other Health Care Pow er of Medical Collector Care Teams Book Salesman Relationship Specialty Start Date End Date Kevin Whiteside DO 132 [facility] [place] [address] PCP - General Family Medicine 05/01/18 documented as of this encounter
--- OUTSIDE RECORDS SUMMARY | 2023-06-01 04:45 | External Medical Summary | Summary of Care ---
Author Name Unknown Organization [facility] Address [place] [address] Care Team Providers Care Spring Coverer Name Role Phone Kevin Whiteside DO Primary Care Provider Reason for Visit * Reason Onset Date Comments [facility]: Maintenance 12/09/2021 Encounter Details Date Type Department Care Team Description 12/09/2021 Scheduled Telephone [facility], [facility] [address] [place] [address] Coordinator, [facility] [address] [place] [address] Allergies Active Allergy Reactions Severity Noted Date [...] 90 Cap 3 12/18/2019 Active DIURETIC TITRATION PLANIndications:Type Proof Reproducer 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 1 Each 0 04/08/2020 Active Blood Glucose Monitoring Suppl ([employer] ULTRA 2) w/Device KIT Use to test [...] mRNA, LNP-s, No Pre serve, 2-Dose Series (Synup) 12/29/2020,12/18/2020 Pneumococcal Polysaccharide PPV23 (Pneumovax) 08/22/2009,06/15/2006 Seasonal [...] Miscellaneous Notes * Telephone Encounter - Angi Flores LPN - 12/09/2021 11:10 AM EDT F/up from TE on 12.08.21 - labs are normal/stable and respiratory panel is negative and acute visit on 12.07.21. Call to pt: Just woke up and feels crappy Lower back - has sciatica (oingoing) [place] good yesterday until dinner then had diarrhea for an hour Denies diarrhea today Denies fever, chills Reports of no energy Wearing O2 at 3L-haven't checked yet today, still in bed. Taking Eliquis Denies cough, sob Right is leg is sore, red and swollen. Reports it is getting better as long as she keeps leg elevated. Not weighing self-encouraged to do Wearing support hose Pt as advised of labs/res panel Provided call back number documented in this encounter Plan of Treatment Upcoming Encounters Date Type Specialty Care Team Description 12/10/2021 Scheduled Telephone [facility] School Boat Driver, [place] [facility] [address] [place] [address] 12/23/2021 Office Visit Nephrology Erik Lenz MD [address] [facility], [place] [address] 12/25/2021 Home Visit Family Medicine Magaly Morales, Community Health Director [facility] [address] [place] [address] 01/12/2022 Home Visit [facility] Vera Capellan RN [address] [place] [address] 01/21/2022 Office Visit Family Medicine Kevin Whiteside DO [address] [place] [address] 01/21/2022 Office Visit Pharmacy Danuta Ordaz [place] [address] [place] [address] 02/18/2022 Office Visit Pulmonary Nikita Sanchez MD [address] [place] [phone] 03/08/2022 Imaging Radiology 04/05/2022 Office Visit Cardiology Marjorie Powell PA-C [address] [facility] [place] [address] Scheduled Procedures Name Priority Associated Diagnoses Date/Ti [...] Additional history exists CKD PHOS USE SMARTSET 40661 03/12/202202/24, 11/17/2020, 12/24/2019, Additional history exists DIABETES-EYE EXAM 04/14/2022 04/14/2021, , 04/05/2019, Additional history exists CKD GFR USE SMARTSET 60153 06/09/202212/07, 11/27/2021, 03/20/2021, Additional history exists BASIC METABOLIC PANEL (BMP) FOR HTN YEARLY 12/07/2022 12/07/2021, 11/27/2021, 03/20/2021, Additional history exists CKD HGB USE SMARTSET 04547 12/07/202212/07, 12/07/2021, 11/27/2021, Additional history exists Colonoscopy: [...] Documents on File Type Date Recorded Patient Helicopter Technician Expl anation Advanced Directive Advanced Directive [...] Camp Other Health Care Hayden r of Wood Preparation Supervisor Princess Allen Other Health Care Pow er of Wood Preparation Supervisor Care Teams Spring Coverer Relationship Specialty Start Date End Date Kevin Whiteside DO [address] [place] [address] PCP - General Family Medicine 05/01/18 documented as of this encounter
--- OUTSIDE RECORDS SUMMARY | 2023-06-01 04:46 | External Medical Summary | Summary of Care ---
Author Name Unknown Organization [facility] Address [facility] [place] [address] Care Team Providers Care Band Sewer Name Role Phone Kevin Whiteside DO Primary Care Provider Reason for Visit * Reason Comments [facility]: Acute f/u like s/s Encounter Details Date Type Department Care Team Description 12/07/2021 Home Visit [facility], [facility] [address] [facility] [place] [address] Brooke Jose, RN [address] [facility] [place] [address] Allergies Active Allergy Reactions Severity Noted Date [...] 90 Cap 3 12/18/2019 Active DIURETIC TITRATION PLANIndications:Well Reactivator Operator 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 1 Each 0 04/08/2020 Active Blood Glucose Monitoring Suppl ([employer] ULTRA 2) w/Device KIT Use to test [...] Active Amoxicillin-Pot Clavulanate 875-125 MG Oral TabletIndications:Ac [place] non-recurrent frontal sinusitis Take by mouth 1 [...] 10/14/2014 Overview: ICD-10 update of inactive term [place] filter in place 08/19/2014 History of pulmonary [...] mRNA, LNP-s, No Pre serve, 2-Dose Series ([employer]) 12/29/2020,12/18/2020 Pneumococcal Polysaccharide PPV23 (Pneumovax) 08/22/2009,06/15/2006 Seasonal [...] Sign Reading Time Taken Comments Blood Pressure 128/58 12/07/2021 10:52 AM EDT Pulse 92 12/07/2021 10:52 AM EDT Temperature 36.9 C (98.4 F) 12/07/2021 10:52 AM E DT Respiratory Rate 20 12/07/2021 10:52 AM EDT Oxygen Saturation 96% 12/07/2021 10:52 AM EDT 3lnc Inhaled Oxygen Concentration - - Weight - - Height - - Body Mass Index - - documented in this encounter Progress Notes * Brooke Jose RN - 12/07/2021 10:20 AM EDT [facility] Nurse Staff Community HealthQuality Assurance Project Manager Visit Date: 12/07/2021 Time: 10:20 AM Name: Stephanie Camp : 1955 Situation: Acute visit Background: Called Intake this morning c/o not feeling well From Intake note: 66 year old female that is calling [facility] Intake to report that she started on Eliquis one week ago, has low grade fever, 99.4, body aches all over, +chills, -wheezing, +fatigue wears O2@3lpm, SPo2-93%, HR-94. BLE's are swollen/red, right leg is improving, does elevate her legs at all times. Dr. [place], [facility], has ordered CBCd, bmp and respiratory swab Assessment: Stared with generalized muscle and bone pain on 12/06 Fever/chills last night-did not take temp until this morning, 99.0 Taking apap with poor relief Dx with DVT RLE 12/03/21 - Started on Eliquis Took Eliquis this morning Reports PE in past when ''in a coma''- Reports has filter in R thigh Sx with sinus infection and started on Augmentin 12/01 Continues to take as directed and will complete Has 4 doses left S/s have improved and nasal drainage now white Breathing at baseline on 3lnc Sleeping in bed with 2 pillows under head (baseline) Wearing cpap qhs with o2 2lnc Has been forgetting to weigh self Morning fbsg 186 Reports range 170 to low 200's Denies symptomatic lows/highs with bsgs NOTE: pt's apartment appears to be developing into a hoarding-type siutuation Reports on list for Waiver assistance-will make SW referral Problems/Symptoms: Review of Systems Constitutional: Positive for activity change and fatigue. HENT: Positive for congestion, postnasal drip (chronic) and rhinorrhea (white- baseline). Negative for sinus pressure. Eyes: Negative. Respiratory: Positive for shortness of breath (AVENDAÑO - at baseline). Cardiovascular: Positive for leg swelling. Gastrointestinal: Negative. Genitourinary: Negative. Musculoskeletal: Positive for arthralgias, back pain and gait problem (ambulates with Rolator). Skin: Positive for color change (mild erythema RLE). Neurological: Positive for weakness. Negative for dizziness, facial asymmetry, light-headedness andheadaches. Hematological: Negative. Psychiatric/Behavioral: Negative. Physical Exam: BP 128/58 | Pulse 92 | Temp 36.9 C (98.4 F) | Resp 20 | LMP 03/11/2003 | SpO2 96% Comment: 3lnc Pain 7 Physical Exam Constitutional: Appearance: She is obese. HENT: Nose: Rhinorrhea present. Cardiovascular: Rate and Rhythm: Normal rate and regular rhythm. Pulses: Normal pulses. Heart sounds: Normal heart sounds. Pulmonary: Effort: Pulmonary effort is normal. Breath sounds: Rales (crackles RML and RLL) present. Abdominal: General: Bowel sounds are normal. Palpations: Abdomen is soft. Musculoskeletal: Right lower leg: Edema (+2-reports improved) present. Left lower leg: Edema (+1) present. Skin: General: Skin is warm and dry. Findings: Erythema (mild RLE-mild, improving) present. Neurological: Mental Status: She is alert and oriented to person, place, and time. [facility]10 Completed this Visit: Yes. [facility]: Reason Completed: Status post acute event/change in baseline [facility] ([facility]) Fall Risk Assessment Tool Age 65+: Yes (12/07/21999) Diagnosis (3 or more co-existing): Yes (12/07/21999) Prior history of falls within 3 months: No (12/07/21999) Incontinence: Yes (12/07/21999) Visual impairment: No (12/07/21999) Impaired functional mobility: Yes (12/07/21999) Environmental hazards: Yes (12/07/21999) Poly Pharmacy (4 or more prescriptions - any type): Yes (12/07/21999) Pain affecting level of function: Yes (03/14/22 1000) Cognitive impairment: No (12/07/21 1000) Score - a score of 4 or more is considered at risk for fallin (12/07/21 1000) [facility]-10 Interventions: Fall education provided, reviewed/provided Fall brochure Referral: County Judge: Other: [facility] STEFANY to facilitate Waiver assistance Treatment/Plan: CBCd, bmp and respiratory swab Meds as ordered/reviewed Ambulate with roller walker at ALL times o2 2lnc qhs and day prn cpap with 2l qhs Apap, tramadol and topical pain relievers for pain No NSAIDS IF CALLS IN WITH WORSENING GENERALIZED PAIN PLEASE MAKE SURE SHE IS TAKING HER MAGNESIUM-OTHERWISE MAG GOES LOW AND CAUSES PAIN Low na, ccd diet, 1.5L fluid restriction Ck bsgs and record tid Wear b/l le support hose-on day/off night Zaroxolyn prn for fluid overload-take only as advised DRY Tb=342sco as of 03/24/21 - does not weight self daily Home Interventions Provided: Labs/Specimen Collection Performed cbcd, bmp, viral swab Reinforced current Plan of Care, including self-management and medication regimen Patient's 'Red Flags': 1. Fever >101F 2. Fall with injury 3. sob Patient Needs to Remember: Call [facility] with red flags Referrals Needed: Automatic Stacker Follow Up: Is there cellular connectivity/connectivity in the home? Yes Does the patient have internet in the home? Yes Patient encouraged to call the intake phone number for all urgent but not emergent issues. Scheduled to follow up with patient daily 2 x 2 days with calls. Brooke Jose RN 12/07/2021 10:20 AM documented in this encounter Plan of Treatment Upcoming Encounters Date Type Specialty Care Team Description 12/07/2021 Anticoagulation Pharmacy Ordaz, [facility] [place] [address] [place] [address] 12/08/2021 [facility]uled [facility]phone [facility]Luis [facility]Loc[facility] [address] [place] [address] 12/09/2021 Scheduled Telephone [facility] Cashier, [facility] [address] [place] [address] 12/23/2021 Office Visit Nephrology Erik Lenz MD [address] [place] [facility] [place] [address] 12/25/2021 Home Visit Family Medicine Magaly Morales, Community Health Physical Therapy Assistant [address] [place] [address] 01/12/2022 Home Visit [facility] Vera Capellan RN [address] [place] [address] 01/21/2022 Office Visit Family Medicine Kevin Whiteside DO [address] [place] [address] 01/21/2022 Office Visit Pharmacy [facility] [place] [address] [place] [address] 02/18/2022 Office Visit Pulmonary Nikita Sanchez MD [address] [place] [phone] 03/08/2022 Imaging Radiology 04/05/2022 Office Visit Cardiology Marjorie Powell PA-C [address] [place] [address] Scheduled Procedures Name Priority Associated Diagnoses Date/Ti [...] Additional history exists CKD PHOS USE SMARTSET 46229 03/12/202202/24, 11/17/2020, 12/24/2019, Additional history exists DIABETES-EYE EXAM 04/14/2022 04/14/2021, , 04/05/2019, Additional history exists CKD GFR USE SMARTSET 21749 05/30/202211/27, 03/20/2021, 03/12/2021, Additional history exists BASIC METABOLIC PANEL (BMP) FOR HTN YEARLY 11/27/2022 11/27/2021, 03/20/2021, 03/12/2021, Additional history exists CKD HGB USE SMARTSET 49560 11/27/202211/27, 03/20/2021, 03/20/2021, Additional history exists Colonoscopy: [...] Documents on File Type Date Recorded Patient Biotech Production Specialist Expl anation Advanced Directive Advanced Directive [...] Camp Other Health Care Hayden r of Backup Engineer Princess Allen Other Health Care Pow er of Backup Engineer Care Teams Band Sewer Relationship Specialty Start Date End Date Kevin Whiteside DO [address] [place] [address] PCP - General Family Medicine 05/01/18 documented as of this encounter"
--- OUTSIDE RECORDS SUMMARY | 2023-06-01 04:46 | External Medical Summary | Summary of Care ---
Author Name Unknown Organization [facility] Address [facility] [place] [address] Care Team Providers Care Ocean Export Coordinator Name Role Phone Kevin Whiteside DO Primary Care Provider Reason for Visit * Reason Comments Dosage Adjustment Via Phone (anticoag Cl inic) Encounter Details Date Type Department Care Team Description 12/03/2021 Anticoagulation Pharmacy, [facility] [address] [facility] [place] [address] [facility] [place] [address] Acute deep vein thrombosis (DVT) of proximal [...] as of this encounter (statuses as of 12/03/2021) Medications Medication Sig Dispensed Refills Start Date [...] 90 Cap 3 12/18/2019 Active DIURETIC TITRATION PLANIndications:Od Grinder Operator 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 1 Each 0 04/08/2020 Active Blood Glucose Monitoring Suppl ([employer] ULTRA 2) w/Device KIT Use to test [...] ([facility]) Inject 40 units with meals + sliding scale 1 units for every 25 units BG > 150. 121 mL 3 11/04/2021 Active Tresiba FlexTouch 100 UNIT/ML Subcutaneous Solution Pen-injector (Insulin Degludec)Indications :Type 2 diabetes mellitus with hemoglobin A1c goal of 7.0%-8.0% ([facility]) Inject under the skin 60 Units [...] Active Amoxicillin-Pot Clavulanate 875-125 MG Oral TabletIndications:Ac [place] non-recurrent frontal sinusitis Take by mouth 1 [...] as of this encounter (statuses as of 12/03/2021) Active Problems Problem Noted Date Acute deep [...] 10/14/2014 Overview: ICD-10 update of inactive term [place] filter in place 08/19/2014 History of pulmonary embolus (PE) 2013 Statin intolerance 07/16/2014 HTN, goal below 130/80 02/22/2014 Venous insufficiency 02/07/2013 ELISSA (obstructive sleep apnea) 09/16/2011 Overview: CPAP 11 cwp Mild, AHI 11.3 but with significant nocturnal hypoxemia Dicks Postsurgical hypothyroidism 06/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 documented as of this encounter (statuses as of 12/03/2021) Resolved Problems Problem Noted Date Resolved Date [...] as of this encounter (statuses as of 12/03/2021) Immunizations Name Administration Dates Next Due COVID-19 [...] as of this encounter Progress Notes * Mina Alonzo, [facility] - 12/03/2021 3:34 PM EST Patient Phone Numbers Called patient to follow up on recent Anticoag start. Patient started on eliquis inpatient, to continue outpatient. [facility] attempting to call and confirm patient is able to afford this medication outpatient. No answer, Left voicemail. [facility] will follow up tomorrow. Mina Alonzo [facility] Clinical Pharmacist 12/03/2021, 3:35 PM documented in this encounter Plan of Treatment Upcoming Encounters Date Type Specialty Care Team Description 12/04/2021 Anticoagulation Pharmacy [facility] [address] [place] [address] 12/23/2021 Office Visit Nephrology [facility] Lenz MD [address] [facility] [address] 12/25/2021 Home Visit Family Medicine Magaly Morales, Community Health Racing Driver [address], [place] [phone] 01/12/2022 [facility] Visit [facility] Vera Capellan RN [address] [place] [address] 01/21/2022 Office Visit Family Medicine Kevin Whiteside DO [address] [place] [address] 01/21/2022 Office Visit Pharmacy [facility] [address] [place] [address] 02/18/2022 Office Visit Pulmonary Nikita Sanchez MD [address] [place] [phone] 03/08/2022 Imaging Radiology 04/05/2022 Office Visit Cardiology Marjorie Powell PA-C [address] [place] [address] Scheduled Procedures Name Priority Associated Diagnoses Date/Ti [...] Additional history exists CKD PHOS USE SMARTSET 19059 03/12/202202/24, 11/17/2020, 12/24/2019, Additional history exists DIABETES-EYE EXAM 04/14/2022 04/14/2021, , 04/05/2019, Additional history exists CKD GFR USE SMARTSET 49054 05/30/202211/27, 03/20/2021, 03/12/2021, Additional history exists BASIC METABOLIC PANEL (BMP) FOR HTN YEARLY 11/27/2022 11/27/2021, 03/20/2021, 03/12/2021, Additional history exists CKD HGB USE SMARTSET 81259 11/27/202211/27, 03/20/2021, 03/20/2021, Additional history exists Colonoscopy: [...] Documents on File Type Date Recorded Patient Oracle Apex Developer Expl anation Advanced Directive Advanced Directive Advanced [...] Camp Other Health Care Hayden r of Clothing Worker Princess Allen Other Health Care Pow er of Clothing Worker Care Teams Ocean Export Coordinator Relationship Specialty Start Date End Date Kevin Whiteside DO [address] [place] [address] PCP - General Family Medicine 05/01/18 documented as of this encounter
--- OUTSIDE RECORDS SUMMARY | 2023-06-01 04:46 | External Medical Summary ---
Author Name Unknown Address Unknown Organization K01:LABORATORY [facility] - [address] [place] [address] Laboratory Report Ordering Provider Test Date Status MARCOS PETERS 12/07/2021 11:57:58 Final Observation Date Value Abnormality Reference (Units ) Status BUN 12/07/2021 11:57:58 19 6-20 (mg/dL) Final Creatinine 12/07/2021 11:57:58 1.6 Above high normal 0.5-1.0 (mg/dL) Final Glomerular filtration rate/1.73 sq M.predicted [Volume Rate/Area] in Serum, Plasma or Blood by Creatinine-based formula (CKD-EPI) 12/07/2021 11:57:58 36 Below low normal >=60 (mL/min) Final Performing Location LABOR[facility]ORY [facility] - [address] [place] [address]
--- OUTSIDE RECORDS SUMMARY | 2023-06-01 04:46 | External Medical Summary ---
Author Name Unknown Address Unknown Organization K01:[facility] [place] [address] [facility] [address] [facility] [address] [place] [address] Laboratory Report Ordering Provider Test Date Status MARCOS PETERS 12/07/2021 11:57:58 Final Observation Date Value Abnormality Reference (Units ) Status SYNC LEUKOCYTES IN BLOOD BY AUTOMATED COUNT 12/07/2021 11:57:58 9.37 4.00-10.80 (K/uL) Final Segs 12/07/2021 11:57:58 70.5 40.0-75.0 (%) Final Lymphs % 12/07/2021 11:57:58 17.0 Below low normal 18.0-42.0 (%) Final Monos 12/07/2021 11:57:58 4.7 1.0-11.0 (%) Final Eosinophils 12/07/2021 11:57:58 6.3 Above high normal 0.0-6.0 (%) Final Basos 12/07/2021 11:57:58 0.5 0.0-2.0 (%) Final Immature Granulocyte, Percent 12/07/2021 11:57:58 1.0 0.0-2.0 (%) Final Absolute Segs 12/07/2021 11:57:58 6.61 1.80-7.70 (K/uL) Final Lymphs, absolute 12/07/2021 11:57:58 1.59 1.00-4.80 (K/ul) Final Monos, Abs 12/07/2021 11:57:58 0.44 0.00-1.10 (K/uL) Final Eos, Abs 12/07/2021 11:57:58 0.59 0.00-0.70 (K/uL) Final Basos, Abs 12/07/2021 11:57:58 0.05 0.00-0.20 (K/uL) Final Immature Granulocytes, Number 12/07/2021 11:57:58 0.09 0.00-0.20 (K/uL) Final Performing Location [facility] - [facility] [place] [address]
--- OUTSIDE RECORDS SUMMARY | 2023-06-01 04:46 | External Medical Summary | Summary of Care ---
Author Name Unknown Organization [facility] Address [facility] [place] [address] Care Team Providers Care Caustic Plant Worker Name Role Phone Kevin Whiteside DO Primary Care Provider Reason for Visit * Reason Comments Dosage Adjustment Via Phone (anticoag Cl inic) Encounter Details Date Type Department Care Team Description 12/07/2021 Anticoagulation Pharmacy, [facility] [address] [facility] [place] [address] [facility] [place] [address] Acute deep vein thrombosis (DVT) of proximal [...] 90 Cap 3 12/18/2019 Active DIURETIC TITRATION PLANIndications:Medicaid Eligibility Specialist 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 1 Each 0 04/08/2020 Active Blood Glucose Monitoring Suppl (Avancert ULTRA 2) w/Device KIT Use to test [...] goal of 7.0%-8.0% ([facility]) Inject 40 units with meals + sliding scale 1 units for every 25 units BG > 150. 121 mL 3 11/04/2021 Active Tresiba FlexTouch 100 UNIT/ML Subcutaneous Solution Pen-injector (Insulin Degludec)Indications :Type 2 diabetes mellitus with hemoglobin A1c goal of 7.0%-8.0% ([facility]) Inject under the skin 60 Units in [...] Active Amoxicillin-Pot Clavulanate 875-125 MG Oral TabletIndications:Ac [place] non-recurrent frontal sinusitis Take by mouth [...] 10/14/2014 Overview: ICD-10 update of inactive term Ellsworth filter in place 08/19/2014 History of pulmonary [...] this encounter Progress Notes * Mina Alonzo, [facility] - 12/07/2021 12:45 PM EDT Patient Phone Numbers Patient reportedly not feeling well with slightly elevated temperature per G@H nurse. Attempted to call patient to follow up on recent Anticoag start. Patient started on eliquis inpatient, to continue outpatient. [facility] attempting to call and to clarify any questions she may have. No answer, Left voicemail. Called alternate contact (Galdino) who stated he would make sure Stephanie is aware to contact the [facility] clinic when she has a chance. Mina Alonzo [facility] Clinical Pharmacist 12/07/2021, 12:47 PM documented in this encounter Plan of Treatment Upcoming Encounters Date Type Specialty Care Team Description 12/08/2021 Scheduled Telephone [facility], [facility] [address] [place] [address] 12/09/2021 Scheduled Telephone [facility], [facility] [address] [place] [address] 12/09/2021 [facility] [place] [address] [place] [address] 12/23/2021 Office Visit Nephrology Erik Lenz MD [address] [place] [address] 12/25/2021 Home Visit Family Medicine Magaly Morales, Community Health Supervisor [place] [address] [place] [address] 01/12/2022 Home Visit [facility] Vera Capellan RN [address] [place] [address] 01/21/2022 Office Visit Family Medicine Kevin Whiteside DO [address] [place] [address] 01/21/2022 Office Visit Pharmacy [facility] [place] [address] [place] [address] 02/18/2022 Office Visit Pulmonary Nikita Sanchez MD [address] [place] [address] 03/08/2022 Imaging Radiology 04/05/2022 Office Visit Cardiology Marjorie Powell PA-C [address] [place] [address] Scheduled Procedures Name Priority Associated Diagnoses Date/Ti [...] Additional history exists CKD PHOS USE SMARTSET 42448 03/12/202202/24, 11/17/2020, 12/24/2019, Additional history exists DIABETES-EYE EXAM 04/14/2022 04/14/2021, , 04/05/2019, Additional history exists CKD GFR USE SMARTSET 77487 05/30/202211/27, 03/20/2021, 03/12/2021, Additional history exists BASIC METABOLIC PANEL (BMP) FOR HTN YEARLY 11/27/2022 11/27/2021, 03/20/2021, 03/12/2021, Additional history exists CKD HGB USE SMARTSET 95835 11/27/202211/27, 03/20/2021, 03/20/2021, Additional history exists Colonoscopy: [...] Documents on File Type Date Recorded Patient Welcome Wagon Hostess Expl anation Advanced Directive Advanced Directive Advanced [...] Camp Other Health Care Hayden r of Technical Artist Princess Staplesfany Other Health Care Pow er of Technical Artist Care Teams Caustic Plant Worker Relationship Specialty Start Date End Date Kevin Whiteside DO [address] [place] [address] PCP - General Family Medicine 05/01/18 documented as of this encounter
--- OUTSIDE RECORDS SUMMARY | 2023-06-01 04:46 | External Medical Summary | Summary of Care ---
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 Repair Helper Name Role Phone Kevin Whiteside DO Primary Care Provider Reason for Referral * Evaluate & Treat - Unlimited Visits (Within 10 days (routine)) - Authorized Specialty Diagnoses / Procedures Referred By Contac t Referred To Contact Hematology/Oncology / Hematology Oncology Diagnoses Acute deep vein thrombosis (DVT) of proximal vein of lower extremity, unspecified laterality (HCC) Fe Mayorga DO [address] [place] [address] Referral ID Status Reason Start Date Expiration Date Visits Requested Visits Authorized Authorized Specialty Services Required 12/03/2021 1 1 Question Answer Referral Priority Within 10 days (routine) Reason for Referral Other - Please Comment * Evaluate & Treat - Unlimited Visits (Within 3 days (urgent)) - Authorized Specialty Diagnoses / Procedures Referred By Contac t Referred To Contact ANTI-COAG CLINIC / Pharmacy Diagnoses Acute deep vein thrombosis (DVT) of proximal vein of lower extremity, unspecified laterality (HCC) Fe Mayorga DO [address] [place] [address] Referral ID Status Reason Start Date Expiration Date Visits Requested Visits Authorized Authorized Specialty Services Required 12/03/2021 06/01/2022 99 99 Question Answer Referral Priority Within 3 days (urgent) Comments Indication for Anticoagulation: Diagnosis: DVT Relevant History: ? Hx of SHANTELL, Initiation date of anticoagulation: 11/27/21. Expected duration of Anticoagulation therapy: 3 months Target INR range (indicate desired range): Treatment of DVT 2.0 - 3.0 Referral for Low Molecular Weight Therapy: N/A Minimum frequency patient should be seen in person for medication management: as appropriate per clinical condition and patient status By my signature, I understand that my patient Stephanie Camp will have her medication therapy managed by the [facility] ([facility]) per established policies, procedures, and protocols. I also certify that this referral may serve as an initiation of service for the management of drug therapy in the above noted patient. [facility] providers will be responsible for scheduling patient visits, obtaining appropriate laboratory studies, and adjusting medication management therapy per patient's need, in addition to those roles spelled out in the clinic policy, procedures, and drug management protocols. I understand that the service provided by the [facility] Clinic is voluntary and have informed patient that they can refuse the service at their discretion. I am aware that the [facility] Clinic will provide me with a copy of the patient encounter via my [employer]. I authorize the [facility] Clinic to carry out these activities on my behalf. I consider this program to be a necessary part of the patient's medical care. Fe Mayorga DO Reason for Visit * Reason Comments Emergency Department Follow-Up Encounter Details Date Type Department Care Team Description 12/03/2021 Office Visit [facility] [address] [place] [address] Fe Mayorga DO [address] [place] [address] Acute deep vein thrombosis (DVT) of proximal [...] 0 0 Active Blood Glucose Monitoring Suppl (DeviceFidelity ULTRA 2) w/Device KIT Use to test [...] mouth daily. 90 Tab 0 0 Active Additional Information Patient taking differently: 200 [...] tab daily 45 Tab 1 1 Active Nerve Pain Relief [...] Pain, Severe. 90 Tablet 0 2 Active BD Pen Needle Short U/F 31G X 8 MM (Insulin Pen Needle) use five times daily 500 Each 3 2 Active DULoxetine HCl 30 MG Oral Capsule Delayed Release Particles (Cymbalta) TAKE ONE CAPSULE BY MOUTH ONE TIME DAILY. TAKE WITH 60 MG CAPSULE FOR A TOTAL OF 90 MG 90 Capsule 0 2 Active Furosemide 40 MG Oral Tablet [...] before bedtime. 90 Tablet 0 2 Active Levothyroxine Sodium 200 MCG Oral Tablet (Levoxyl)Indication s:Postsurgical hypothyroidism TAKE ONE TABLET BY MOUTH IN THE MORNING AT LEAST 30 MINUTES PRIOR TO BREAKFAST OR OTHER MEDS 100 Tablet 0 2 Active Nortriptyline HCl 50 MG Oral Capsule (Pamelor)Indication s:Fibromyalgia Take by mouth 1 Capsule before bedtime. 100 Capsule 1 2 Active rOPINIRole HCl 2 MG Oral [...] abdominal pain. 450 Tablet 3 2 Active DULoxetine HCl 60 MG Oral Capsule Delayed Release Particles (Cymbalta)Indicatio ns:Fibromyalgia,Mod erate episode of recurrent major depressive disorder (HCC),Primary osteoarthritis of both knees Take by mouth 1 Capsule in the morning. Along with 30 mg capsule to total 90 mg daily.. 100 Capsule 1 2 Active NovoLOG FlexPen 100 UNIT/ML [...] the morning. 45 mL 3 2 Active clonazePAM 0.5 MG Oral [...] 0 Active Amoxicillin-Pot Clavulanate 875-125 MG Oral TabletIndications:A cute non-recurrent frontal sinusitis Take by mouth 1 Tablet in the morning AND 1 Tablet before bedtime. Do all this for 10 days. 20 Tablet 0 2 12/12/19 22 Active Cefdinir 300 MG Oral Capsule (Omnicef) Take by mouth 300 mg 2 times a day . 0 12/04/19 22 Discontinued Hospital, Clinic, or Other Facility [...] 10/14/2014 Overview: ICD-10 update of inactive term Wallace filter in place 08/19/2014 History of pulmonary [...] Reading Time Taken Comments Blood Pressure 118/68 12/03/2021 1:52 PM EST Pulse 98 12/03/2021 1:52 PM EST Temperature - - Respiratory Rate 20 12/03/2021 1:52 PM EST Oxygen Saturation - - Inhaled Oxygen Concentration - - Weight 156 kg (344 lb) 12/03/2021 1:52 PM EST Height 162.6 cm (5' 4") 12/03/2021 1:52 PM EST Body Mass Index 59.05 12/03/2021 1:52 PM EST documented in this encounter Progress Notes * Fe Mayorga, - 12/03/2021 2:00 PM EST Subjective: Stephanie Camp is a 66 year old female. Chief Complaint Patient presents with Emergency Department Follow-Up Nursing Notes: Mattie Hilario LPN 12/03/21 1352 Sign at exiting of workspace The patient has been properly identified by confirmation of name and date of . Chief Complaint Patient presents with Emergency Department Follow-Up HPI: This is a 66 year old female with PMHx as below presents with ER follow up Pt was dx with DVT - sent to ER for concern for PE While in er - evaluated - believed to be at baseline breathing status; no further workup was done Started on eliquis for DVT VSS Pt states was in a medical coma - had severe pna both lungs - the blood clot collapsed her lungs? Pt states a filter was placed in her R femoral vein Was on blood thinner 1-2 years and then was taken off Pt states she got blood clot because she was sedentary Breathing at baseline - with Maintenance Due Topic Date Due Pneumococcal Vaccine: 65+ Years (2 of 2 - PPSV23) 2020 DIABETES-URINE ALBUMIN/CREATININE EVERY 12 MONTHS 05/24/2020 DIABETES-HGBA1C EVERY 6 MONTHS 05/17/2021 COVID-19 Vaccine (3 - Booster) 05/31/2021 Depression Screening, Annual for Pts 12 and Over 07/28/2021 BREAST CANCER SCREENING DISCUSSION YEARLY AGES 40-75 10/01/2021 TSH FOR THYROID MEDICATION MONITORING YEARLY 12/25/2021 DIABETES-FOOT EXAM 01/14/2022 Patient Active Problem List Diagnosis Code Dyslipidemia E78.5 ELLIE (generalized anxiety disorder) F41.1 Postsurgical hypothyroidism E89.0 ELISSA (obstructive sleep apnea) G47.33 Venous insufficiency I87.2 HTN, goal below 130/80 I10 History of pulmonary embolus (PE) Z86.711 Statin intolerance Z78.[address] Z95.828 Type 2 diabetes mellitus with hemoglobin A1c goal of 7.0%-8.0% ([facility]) E11.9 Fibromyalgia M79.7 Abnormality of gait R26.9 Restless legs syndrome G25.81 Gastroesophageal reflux disease with esophagitis K21.00 Morbid obesity with BMI of 50.0-59.9, adult ([facility]) E66.01, Z68.43 Controlled substance agreement signed Z79.899 Chronic diastolic congestive heart failure ([facility]) I50.32 Mild episode of recurrent major depressive disorder ([facility]) F33.0 Lumbar radiculopathy M54.16 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, NYHA class 1 and CKD stage 3 ([facility]) I13.0, I50.30, N18.30 Hyperparathyroidism, secondary renal ([facility]) N25.81 Vasculitis ([facility]) I77.6 Primary osteoarthritis of left knee M17.12 Spinal stenosis of lumbar region without neurogenic claudication M48.061 Hypotension I95.9 Current Outpatient Medications Medication Sig Dispense Refill [...] 1 Each 0 Blood Glucose Monitoring Suppl (BiocartisUCH ULTRA 2) w/Device KIT Use to test BG values 1 Kit 0 clobetasol propionate (TEMOVATE) 0.05 % cream Apply to rash on the hands and dorsal feet twice daily x 1 week, then as needed for flares. 30 g 1 Magnesium Oxide 400 (241.3 Mg) MG Oral Tablet Take 400 mg by mouth daily. (Patient taking differently: Take 200 mg by mouth daily.) 90 Tab 0 Acetaminophen 500 MG Oral [...] mouth daily. Lidocaine 4 % External Patch (HM Lidocaine Patch) Place topically on the skin 1 Patch daily . Azithromycin 500 MG Oral Tablet (Zithromax) Take by mouth 500 mg daily . traMADol HCl 50 MG Oral Tablet (Ultram) Take 1 Tablet by mouth every 8 hours as needed for Pain, Severe. 90 Tablet 0 BD Pen Needle Short U/F 31G [...] 1 Tablet before bedtime. 60 Tablet 0 Apixaban 5 MG Oral Tablet (Eliquis) Take by mouth 10 mg in the morning AND 10 mg before bedtime. 10mg twice a day x 7 days then 5mg twice a day . Amoxicillin-Pot Clavulanate 875-125 MG Oral Tablet Take by mouth 1 Tablet in the morning AND 1 Tablet before bedtime. Do all this for 10 days. 20 Tablet 0 Current Facility-Administered Medications Medication Dose Route Frequency Provider Last Rate Last Admin Albuterol Sulfate (Proventil) (2.5 MG/3ML) 0.083% inhalation solution 2.5 mg 2.5 mg Nebulizer Q4H PRN TATIANA Negrete Past Medical History: Diagnosis Date ELSIE (acute kidney injury) ([facility]) 06/12/2018 Allergic rhinitis due to other allergen Backache Diverticulosis of colon 01/28/06 DM type 2, not at goal ([facility]) ELLIE (generalized anxiety disorder) 09/13/2009 Goiter Wallace filter in place 08/19/2014 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[facility]) 08/22/2009 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[facility]) 06/12/2018 History of pulmonary embolus (PE) 07/16/2014 HTN, goal below 140/90 Impetigo 09/27/2018 Obesity, BMI not known Perforation of intestine ([facility]) 1996 COLON -- 1996 Pneumonia in aspergillosis(484.6) 09/14/2009 Spinal stenosis of lumbar region without neurogenic claudication 07/15/2020 Spontaneous pneumothorax 09/14/2009 Statin intolerance 07/16/2014 Type 2 diabetes mellitus with hemoglobin A1c goal of 7.0%-8.0% ([facility]) 10/14/2014 ICD-10 update of inactive term Vaginal karmen 07/13/2018 Past Surgical History: Procedure Laterality Date ARTHROPLASTY KNEE TOTAL Right 07/24/14 R COLONOSCOPY, DIAGNOSTIC (RECTUM) 02/18/2016 normal, repeat 10 yrs/[facility] COLONOSCOPY, GI REFERRAL OP 01/28/06 diverticulosis--repeat 10 years INCISION OF WINDPIPE, PLANNED 06/03/2011 TRACHEOSTOMY PLANNED performed by DANNY HOLDER at [facility] INJECT DX/THER SUBSTANCE INTERLAMINAR LUMBAR/SACRAL W IMAGE GUIDE 05/26/2020 INJECTION SPINE LUMBAR OR SACRAL performed by Raj Ahn, at OR [facility] INJECT DX/THER SUBSTANCE INTERLAMINAR LUMBAR/SACRAL W IMAGE GUIDE 05/14/2021 INJECTION SPINE LUMBAR OR SACRAL performed by Raj Ahn DO at OR [facility] INJECT DX/THER SUBSTANCE INTERLAMINAR LUMBAR/SACRAL W IMAGE GUIDE 08/13/2021 INJECTION SPINE LUMBAR OR SACRAL performed by Raj Ahn DO at OR [facility] KNEE ARTHROSCOPY/DEBRIDEMENT 07/[address] PERMANENT GASTROSTOMY TUBE 09/06/09 GASTROSTOMY WITH CONSTUCTION GASTRIC TUBE performed by AMADOU NUNEZ at [facility] REMOVAL OF THYROID GLAND 06/15/2011 THYROIDECTOMY INCLUDING SUBSTERNAL THYROID CERVICAL APPROACH performed by DANNY HOLDER at [facility] REMOVE GALLBLADDER 09/06/09 CHOLECYSTECTOMY performed by AMADOU NUNEZ at OR [facility] REPAIR RECURRENT INCISIONAL HERNIA 1998 REVISION OF COLOSTOMY, SIMPLE 1998 SACROILIAC JOINT INJECT W/GUIDANCE 07/28/2020 INJECTION SACROILIAC JOINT performed by Raj Ahn DO at OR [facility] SUTURE, LARGE INTESTINE W/COLOSTOMY 1996 perforation [...] Tetanus Toxoid Other (Please comment) Passed out Family History Problem Relation Age of Onset Cancer Father lung - age 74 (smoker) Cancer Mother liver - age 45 Heart Disorder Brother age 45 - possible tumor Diabetes Grandmother (Paternal) Cancer Grandfather (Paternal) bone ca - in 70's Family Status Relation Status Fa (Not Specified) Mo (Not Specified) Bro (Not Specified) PGMA (Not Specified) PGFA (Not Specified) Social History Socioeconomic History Marital status: Single Spouse name: Not on file Number of children: Not on file Years of education: Not on file Highest education level: Not on file Occupational History Occupation: [employer] Employer: [employer] Occupation: [employer] Employer: [employer] Tobacco Use Smoking status: Former Smoker Packs/day: 1.00 Years: 15.00 Pack years: 15.00 Quit date: 08/26/1997 Years since quittin.2 Smokeless tobacco: Never Used Vaping Use Vaping Use: Never used Substance and Sexual Activity Alcohol use: Not Currently Comment: rare Drug use: No Sexual activity: Not Currently Other Topics Concern Not on file Social History Narrative 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 Wt Readings from Last 3 Encounters: 12/03/21 (!) 156 kg (344 lb) 11/27/21 (!) 157.1 kg (346 lb 6.4 oz) 10/08/21 (!) 156 kg (344 lb) Results for orders placed or performed in visit on 12/01/21 CHEMISTRY-OUTSIDE Result Value Ref Range CREATININE-OUTSIDE LAB 1.56 (A) 0.6 - 1.2 MG/DL EGFR-OUTSIDE LAB 34.3 ML/MIN POTASSIUM-OUTSIDE LAB 4.0 3.5 - 5.1 MMOL/L GLUCOSE-OUTSIDE LAB 135 (A) 70 - 99 MG/DL HOURS FASTING TRIGLYCERIDES-OUTSIDE LAB CHOLESTEROL-OUTSIDE LAB HDL-OUTSIDE LAB CHOL/HDL RATIO-OUTSIDE LAB LDL (CALCULATED)-OUTSIDE LAB LDL (DIRECT MEASURE)-OUTSIDE LAB HEMOGLOBIN, [id number] LAB PHOSPHORUS-OUTSIDE LAB PTH-OUTSIDE LAB MICROALBUMIN RATIO-OUTSIDE LAB PROTEIN, UA-OUTSIDE LAB HEMOGLOBIN-OUTSIDE LAB 13.7 12.0 - 16.0 G/DL CHEMISTRY COMMENT-OUTSIDE LAB *Note: Due to a large number of results and/or encounters for the requested time period, some results have not been displayed. A complete set of results can be found in Results Review. OBJECTIVE: Physical Exam: BP 118/68 | Pulse 98 | Resp 20 | Ht 1.626 m (5' 4") | Wt (!) 156 kg (344 lb) | LMP 03/11/2003 | BMI59.05 kg/m | BSA 2.65 m General: alert, healthy and no distress Extremities: RLE - pos diffuse dependent edema with diffuse edema up to calf Acute deep vein thrombosis (DVT) of proximal vein of lower extremity, unspecified laterality (HCC) (Primary) - ANTI-COAGULATION REFERRAL OP - as FYI - HEMATOLOGY/ONCOLOGY REFERRAL OP - due to prior history. - VASC DUPLEX VENOUS LE UNILAT; Future; Expected date: 03/04/2022 - 3 mo recheck Follow Up: Return if symptoms worsen or fail to improve. Fe Mayorga DO documented in this encounter Nursing Notes * Mattie Hilario LPN - 12/03/2021 1:52 PM EST The patient has been properly identified by confirmation of name and date of . Chief Complaint Patient presents with Emergency Department Follow-Up documented in this encounter Plan of Treatment Upcoming Encounters Date Type Specialty Care Team Description 12/03/2021 Anticoagulation Pharmacy [facility] [address] [facility] [place] [address] 12/23/2021 Office Visit Nephrology Erik Lenz MD [address] [place] [address] 12/25/2021 Home Visit Family Medicine Magaly Morales, Community Health Banquet Chef [address] [place] [address] 01/12/2022 [facility] Visit [facility] Vera Capellan RN [address] [facility] [place] [address] 01/21/2022 Office Visit Family Medicine [facility] Wh[facility]ide DO [facility] [place] [address] 01/21/2022 Office Visit [facility] [place] [address] 02/18/2022 Office Visit Pulmonary Nikita Sanchez MD [address] [facility] [place] [address] 03/08/2022 Imaging Radiology 04/05/2022 Office Visit Cardiology Marjorie Powell PA-C [address] [place] [address] Scheduled Orders Name Type Priority Associated Diagnoses Orde r Schedule VASC DUPLEX VENOUS LE UNILAT Medical Imaging Routine Acute deep vein thrombosis (DVT) of proximal vein of lower extremity, unspecified laterality (HCC) Expected: 03/04/2022 (Approximate), Expires: 01/03/2023 Scheduled Procedures Name Priority Associated Diagnoses Date/Ti me COLONOSCOPY FLEXIBLE PROXIMAL DIAGNOSTIC Recall Colon cancer screening Scheduled Referrals Name Type Priority Associated Diagnoses Orde r Schedule ANTI-COAGULATION REFERRAL OP Referral Within 3 days (urgent) Acute deep vein thrombosis (DVT) of proximal vein of lower extremity, unspecified laterality (HCC) Ordered: 12/03/2021 HEMATOLOGY/ONCOLOGY REFERRAL OP Referral Within 10 days (routine) Acute deep vein thrombosis (DVT) of proximal vein of lower extremity, unspecified laterality (HCC) Ordered: 12/03/2021 Health Maintenance Due Date Last Done Comments [...] Additional history exists CKD PHOS USE SMARTSET 87781 03/12/202202/24, 11/17/2020, 12/24/2019, Additional history exists DIABETES-EYE EXAM 04/14/2022 04/14/2021, , 04/05/2019, Additional history exists CKD GFR USE SMARTSET 91128 05/30/202211/27, 03/20/2021, 03/12/2021, Additional history exists BASIC METABOLIC PANEL (BMP) FOR HTN YEARLY 11/27/2022 11/27/2021, 03/20/2021, 03/12/2021, Additional history exists CKD HGB USE SMARTSET 99144 11/27/202211/27, 03/20/2021, 03/20/2021, Additional history exists Colonoscopy: [...] Documents on File Type Date Recorded Patient Duck Operator Expl anation Advanced Directive Advanced Directive [...] Other Health Care Hayden r of Learning Program Manager Princess Allen Other Health Care Pow er of Learning Program Manager Care Teams Armature Winder Repair Helper Relationship Specialty Start Date End Date Kevin Whiteside DO [address] [place] [address] PCP - General Family Medicine 05/01/18 documented as of this encounter
--- OUTSIDE RECORDS SUMMARY | 2023-06-01 04:46 | External Medical Summary ---
Author Name Unknown Address Unknown Organization K01:[facility] [address] [facility] [place] [address] Laboratory Report Ordering Provider Test Date Status MARCOS PETERS 12/07/2021 11:57:58 Final Observation Date Value Abnormality Reference (Units ) Status Adenovirus DNA [Presence] in Nasopharynx by INES with non-probe detection 12/07/2021 11:57:58 Negative Negative Final Human coronavirus 229E RNA [Presence] in Nasopharynx by INES with non-probe detection 12/07/2021 11:57:58 Negative Negative Final Human coronavirus HKU1 RNA [Presence] in Nasopharynx by INES with non-probe detection 12/07/2021 11:57:58 Negative Negative Final Human coronavirus NL63 RNA [Presence] in Nasopharynx by INES with non-probe detection 12/07/2021 11:57:58 Negative Negative Final Human coronavirus OC43 RNA [Presence] in Nasopharynx by INES with non-probe detection 12/07/2021 11:57:58 Negative Negative Final SARS-CoV-2 (COVID-19) RNA [Presence] in Nasopharynx by INES with non-probe detection 12/07/2021 11:57:58 Negative Negative Final Human metapneumovirus RNA [Presence] in Nasopharynx by INES with non-probe detection 12/07/2021 11:57:58 Negative Negative Final Rhinovirus+Enterovirus RNA [Presence] in Nasopharynx by INES with non-probe detection 12/07/2021 11:57:58 Negative Negative Final Influenza virus A RNA [Presence] in Nasopharynx by INES with non-probe detection 12/07/2021 11:57:58 Negative Negative Final Influenza virus B RNA [Presence] in Nasopharynx by INES with non-probe detection 12/07/2021 11:57:58 Negative Negative Final Parainfluenza virus 1 RNA [Presence] in Nasopharynx by INES with non-probe detection 12/07/2021 11:57:58 Negative Negative Final Parainfluenza virus 2 RNA [Presence] in Nasopharynx by INES with non-probe detection 12/07/2021 11:57:58 Negative Negative Final Parainfluenza virus 3 RNA [Presence] in Nasopharynx by INES with non-probe detection 12/07/2021 11:57:58 Negative Negative Final Parainfluenza virus 4 RNA [Presence] in Nasopharynx by INES with non-probe detection 12/07/2021 11:57:58 Negative Negative Final Respiratory syncytial virus RNA [Presence] in Nasopharynx by INES with non-probe detection 12/07/2021 11:57:58 Negative Negative Final Bordetella pertussis.pertussis toxin promoter region [Presence] in Nasopharynx by INES with non-probe detection 12/07/2021 11:57:58 Negative Negative Final Chlamydophila pneumoniae DNA [Presence] in Nasopharynx by INES with non-probe detection 12/07/2021 11:57:58 Negative Negative Final Mycoplasma pneumoniae DNA [Presence] in Nasopharynx by INES with non-probe detection 12/07/2021 11:57:58 Negative Negative Final Bordetella parapertussis [id number] DNA [Presence] in Nasopharynx by INES with non-probe detection 12/07/2021 11:57:58 Negative Negative Final Performing Location [facility]ATORY [facility] [place] - [address] [facility] [address]
--- OUTSIDE RECORDS SUMMARY | 2023-06-01 04:46 | External Medical Summary | Summary of Care ---
Author Name Unknown Organization [place] [address] Care Team Providers Care Spring Clipper Name Role Phone Kevin Whiteside DO Primary Care Provider Reason for Visit * Reason Comments Research Food Technologist Documentation Encounter Details Date Type Department Care Team Description 12/07/2021 Research Food Technologist [facility], [facility] [address] [facility] [place] [id number] [facility], [facility] [address] [place] [address] Allergies Active Allergy Reactions Severity Noted Date [...] 90 Cap 3 12/18/2019 Active DIURETIC TITRATION PLANIndications:Pump Room Operator 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 1 Each 0 04/08/2020 Active Blood Glucose Monitoring Suppl (Wetradetogether ULTRA 2) w/Device KIT Use to test [...] Active Amoxicillin-Pot Clavulanate 875-125 MG Oral TabletIndications:Ac assinibo[place] sioux non-recurrent frontal sinusitis Take by mouth 1 [...] 10/14/2014 Overview: ICD-10 update of inactive term [place] filter in place 08/19/2014 History of pulmonary [...] as of this encounter Progress Notes * Olive Sumner, RN EMERGENCY - 12/07/2021 12:31 PM EDT Worker was consulted by Vera ELLIOTT CM OPTION Program from the [facility] [phone] Waiting list Chart was reviewed. Due to restrictions of the CO-VID 19 virus and Social Distancing: This interview was conducted over the phone with Stephanie [phone]. Patient offers no food insecurities. [facility] New Assessment for Social Work Is this for a hospital or rehab discharge to home? No Verified Demographics: Yes Does the patient speak Bahraini? Yes Does the patient read Bahraini? Yes Is the patient able to understand instructions? Written and Verbal Lives with: Alone Support System in the home: Lives alone Support System outside of the home: Brother> Galdino - cesar lives @ 15 minutes away in [place] Sister in Law> Shayy Neighbor> Jessenia Living Environment: unseen Condition of living environment: unseen Neighborhood: unseen Pets: 2 cats Transportation: Drives Main Source of Income: Social Security @$ 1089.00 Does the patient receive any government assistance? Food [place] @$ 200.00+ Health Care Benefits: Has health insurance and is adequate to meet needs ?: No DME Equipment: Cane- O2- C-PAP-PERS System Ability to Complete: Needs assistance Education: High School Graduation // 18 years at [employer] Spiritual/Christian Beliefs: n/a Life Planning: Brother > Galdino Patient's Goals of Care: 1. Feel better 2. Remain independent History of Violence or Trauma: n/a MENTAL STATUS EVALUATION: Orientation: Alert and Oriented to person, place and time Appearance: unseen Eye Contact: unseen Behavior: Cooperative and Pleasant Speech: Normal volume Mood: Depressed Mood Persistence: Responds to attempts Affect: Intensity: Normal, Range: Normal, Type: Appropriate Thought Process: Goals directed Thought Content:Within normal limits Attention: Normal Sleep: Good Interest: Down slightly Guilt/Self-blame: n/a Energy: Down significantly Concentration: Down slightly Appetite: fair but improving Psychomotor agitation/retardation: n/a Sex Drive: n/a Mental Health > Depression Smoking > n/a Alcohol > n/a Marital Status > Single Computer > yes >Active Shopping > Independent Home > rented Continent > yes mostly Fall > n/a Gait > Slow with cane Hearing > good Meals > [facility] Memory > intact Vision > fair - wears glasses Weight > fluid issues Assisted Facility > [place] facility Criminal Background>n/a Plan B : SNF if needed DANGEROUSNESS TO SELF & OTHERS ASSESSMENT: Risk Factors: Suicidal ideation/Intent: n/a Family history of suicide: n/a Access to means: n/a Protective Factors: Easy access to clinical interventions: Yes Family and community support: Please see Community Support section above. Skills in problem solving, conflict resolution and distress tolerance: limited Coping Skills: limited Cultural and denominational beliefs that discourage suicide and support hopefulness: n/a Substance Abuse Use / History: Denies use of substances Anxiety: At times Major physical illness: See Problem List Recent losses or change in socio economic status: n/a Assessment: Based on these risk and protective factors, this patient's suicide risk is assessed to be: Minimal Depression Test Summary, Results are Patient Reported: The value you specified in the flowsheet rows parameter was overridden by educational administrator build. Remove the value in the flowsheet rows parameter or contact an educational administrator. The value you specified in the flowsheet rows parameter was overridden by educational administrator build. Remove the value in the flowsheet rows parameter or contact an educational administrator. The value you specified in the flowsheet rows parameter was overridden by educational administrator build. Remove the value in the flowsheet rows parameter or contact an educational administrator.. The value you specified in the flowsheet rows parameter was overridden by educational administrator build. Remove the value in the flowsheet rows parameter or contact an educational administrator. 1. Little interest or pleasure in doing things The value you specified in the flowsheet rows parameter was overridden by educational administrator build. Remove the value in the flowsheet rows parameter or contact an educational administrator. 2. Feeling down, depressed or hopeless The value you specified in the flowsheet rows parameter was overridden by educational administrator build. Remove the value in the flowsheet rows parameter or contact an educational administrator. 3. Trouble falling or staying asleep, or sleeping too much The value you specified in the flowsheetrows parameter was overridden by educational administrator build. Remove the value in the flowsheet rows parameter or contact an educational administrator. 4. Poor appetite or overeating The value you specified in the flowsheet rows parameter was overridden by educational administrator build. Remove the value in the flowsheet rows parameter or contact an educational administrator. 5. Feeling tired of having little energy The value you specified in the flowsheet rows parameter was overridden by educational administrator build. Remove the value in the flowsheet rows parameter or contact an educational administrator. 6. Feeling bad about yourself - or that you are a failure, or have let yourself of your family downThe value you specified in the flowsheet rows parameter was overridden by educational administrator build. Remove the value in the flowsheet rows parameter or contact an educational administrator. 7. Trouble concentrating on things, such as reading the newspaper or watching television The value you specified in the flowsheet rows parameter was overridden by educational administrator build. Remove the value in the flowsheet rows parameter or contact an educational administrator. 8. Moving or speaking so slowly that other people could have noticed. Or the opposite being so fidgety or restless that you have been moving around a lot more than usual The value you specified in the flowsheet rows parameter was overridden by educational administrator build. Remove the value in the flowsheet rows parameter or contact an educational administrator. 9. Thoughts that you would be better off , or of hurting yourself The value you specified in the flowsheet rows parameter was overridden by educational administrator build. Remove the value in the flowsheet rows parameter or contact an educational administrator. 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, NYHA class 1 and CKD stage 3 (HCC) [I13.0, I50.30, N18.30] 05/14/2019 Lumbar radiculopathy [M54.16] 09/27/2018 Mild episode of recurrent major depressive disorder (HCC) [F33.0] 08/26/2018 Chronic diastolic congestive heart failure (HCC) [I50.32] 06/12/2018 Controlled substance agreement signed [Z79.899] 07/14/2017 Morbid obesity with BMI of 50.0-59.9, adult (HCC) [E66.01, Z68.43] 06/27/2017 Per Obesity protocol #1 - Per Obesity Taxonomy ICD-10 update of inactive term Gastroesophageal reflux disease with esophagitis [K21.00] 03/04/2017 Restless legs syndrome [G25.81] 03/25/2016 Fibromyalgia [M79.7] 02/02/2016 Abnormality of gait [R26.9] 02/02/2016 Type 2 diabetes mellitus with hemoglobin A1c goal of 7.0%-8.0% ([facility]) [E11.9] 10/14/2014 ICD-10 update of inactive term [place] filter in place [Z95.828] 08/19/2014 History of pulmonary embolus (PE) [Z86.711] 07/16/2014 Statin intolerance [Z78.9] 07/16/2014 HTN, goal below 130/80 [I10] 02/22/2014 Venous insufficiency [I87.2] 02/07/2013 ELISSA (obstructive sleep apnea) [G47.33] 09/16/2011 CPAP 11 cwp Mild, AHI 11.3 but with significant nocturnal hypoxemia Dicks Postsurgical hypothyroidism [E89.0] 06/16/2011 ELLIE (generalized anxiety disorder) [F41.1] 09/13/2009 Dyslipidemia [E78.5] 09/04/2009 Per Lipid Taxonomy. Med Reconciliation: Taking all medication as directed?: Yes Care Site >delived and Stephanie puts them in a partner integration planner. Identified Strengths: Cooperative What does patient believe their strengths are? Friends and family Barriers to Treatment: No identified barriers Social Work Goals/Interventions: Behavioral Health needs: Meets with her Psychiatrist 2 times a month. Takes medication Drug and Alcohol needs: No needs identified at this time Complex Psychosocial needs: No needs identified at this time Plan: Vera ELLIOTT CM is looking for the status of the aide that has been approved for Stephanie. 1/ Worker reached out to Stephanie for additional information. She was unclear of the program or who was her contact. Stephanie stated, she spoke to a person last week but no help is available due to an aide shortage. 2/ Worker reached out to [facility] [phone]. Stephanie is followed by Blank at the agency. Blank was able to discuss pt at length. Presently she is on a waiting list for an aide. Agencies have been contacted by [employer] on a bi-weekly attempt without success. Blank will update this worker when an aide has been established. Stephanie offered no other complaints or concerns at this time. Fall precautions were stressed. No falls were recently reported. Emotional Support was offered. Stephanie was encouraged to contact the [facility] Team with any questions or concerns . Phone number for [facility] was provided . Worker provided her with contact number [phone]. Olive Sumner LCSW [facility] Edge Finisher [facility] [phone] documented in this encounter Plan of Treatment Upcoming Encounters Date Type Specialty Care Team Description 12/07/2021 Anticoagulation Pharmacy [facility] Jeramie [address] [place] [address] Acute deep vein thrombosis (DVT) of proximal vein of lower extremity, unspecified laterality (HCC)* 12/08/2021 Scheduled Telephone [facility] [facility], [facility] Geoffrey Cisneros [address] [place] [address] 12/09/2021 Scheduled Telephone [facility] [place] [facility], [facility] Geoffrey Cisneros [address] [place] [address] 12/23/2021 Office Visit Nephrology Erik Lenz MD [address] [place] [address] 12/25/2021 Home Visit Family Medicine Magaly Morales, Community Health Lump Inspector [address] [place] [facility] [address] 01/12/2022 Home Visit [facility] Vera Capellan RN [address] [place] [address] 01/21/2022 Office Visit Family Medicine Kevin Whiteside DO [address] [place] [address] 01/21/2022 Office Visit Pharmacy [facility] [address]ie [address] [place] [address] 02/18/2022 Office Visit Pulmonary Nikita Sanchez MD [address] [place] [address] 03/08/2022 Imaging Radiology 04/05/2022 Office Visit Cardiology Marjorie Powell PA-C [address] [place] [address] Scheduled Procedures Name Priority Associated Diagnoses Date/Ti [...] Additional history exists CKD PHOS USE SMARTSET 15883 03/12/202202/24, 11/17/2020, 12/24/2019, Additional history exists DIABETES-EYE EXAM 04/14/2022 04/14/2021, , 04/05/2019, Additional history exists CKD GFR USE SMARTSET 15177 05/30/202211/27, 03/20/2021, 03/12/2021, Additional history exists BASIC METABOLIC PANEL (BMP) FOR HTN YEARLY 11/27/2022 11/27/2021, 03/20/2021, 03/12/2021, Additional history exists CKD HGB USE SMARTSET 97192 11/27/202211/27, 03/20/2021, 03/20/2021, Additional history exists Colonoscopy: [...] Documents on File Type Date Recorded Patient Qa Automation Developer Expl anation Advanced Directive Advanced Directive [...] Camp Other Health Care Hayden r of Poultry Veterinarian Princess Allen Other Health Care Pow er of Poultry Veterinarian Care Teams Spring Clipper Relationship Specialty Start Date End Date Kevni Whiteside DO [address] [place] [id number] PCP - General Family Medicine 05/01/18 documented as of this encounter
--- OUTSIDE RECORDS SUMMARY | 2023-06-01 04:46 | External Medical Summary | Summary of Care ---
Author Name Unknown Organization [place] [address] Care Team Providers Care Occupational Health Coordinator Name Role Phone Whiteside Kevin Ocampomelinda Primary Care Provider Encounter Details Date Type Department Care Team Description 12/07/2021 Orders Only [facility], [place] [address] [facility] [place] [address] Brooke Jose, RN [address] [facility] [place] [address] Primary osteoarthritis of left knee* Allergies Active Allergy Reactions Severity Noted Date [...] 90 Cap 3 12/18/2019 Active DIURETIC TITRATION PLANIndications:Cardiac Cath Technician 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 1 Each 0 04/08/2020 Active Blood Glucose Monitoring Suppl (Jotky ULTRA 2) w/Device KIT Use to test [...] Active Amoxicillin-Pot Clavulanate 875-125 MG Oral TabletIndications:Ac [place] non-recurrent frontal sinusitis Take by mouth 1 [...] 10/14/2014 Overview: ICD-10 update of inactive term [place] filter in place 08/19/2014 History of pulmonary [...] Date Type Specialty Care Team Description 12/07/2021 [facility] [address] [facility] [place] [address] 12/08/2021 Scheduled Telephone [facility] Corporate Meeting Planner, [facility] [address] [facility] [place] [address] 12/09/2021 Scheduled Telephone [facility] [employer] Meeting Planner, [facility] [address] [place] [address] 12/23/2021 Office Visit Nephrology Erik Lenz MD [address] [place] [address] 12/25/2021 Home Visit Family Medicine Magaly Morales, Community Health Assistant Director Of Security [address] [place] [address] 01/12/2022 Home Visit [facility] Capellan RN [address] [facility] [place] [address] 01/21/2022 Office Visit Family Medicine Kevin Whiteside DO [address] [facility] [place] [address] 01/21/2022 Office Visit Pharmacy [facility] Jeramie [address] [place] [address] 02/18/2022 Office Visit Pulmonary Nikita Sanchez MD [address] [place] [address] 03/08/2022 Imaging Radiology 04/05/2022 Office Visit Cardiology Marjorie Powell PA-C [address] [place] [address] Scheduled Procedures Name Priority Associated Diagnoses Date/Ti [...] Additional history exists CKD PHOS USE SMARTSET 14158 03/12/202202/24, 11/17/2020, 12/24/2019, Additional history exists DIABETES-EYE EXAM 04/14/2022 04/14/2021, , 04/05/2019, Additional history exists CKD GFR USE SMARTSET 13363 05/30/202211/27, 03/20/2021, 03/12/2021, Additional history exists BASIC METABOLIC PANEL (BMP) FOR HTN YEARLY 11/27/2022 11/27/2021, 03/20/2021, 03/12/2021, Additional history exists CKD HGB USE SMARTSET 47201 11/27/202211/27, 03/20/2021, 03/20/2021, Additional history exists Colonoscopy: [...] encounter Visit Diagnoses Diagnosis Primary osteoarthritis of left knee- Primary Primary localized osteoarthrosis, lower leg documented in this encounter Advance Directives Documents on File Type Date Recorded Patient Seed Laboratory Technician Expl anation Advanced Directive Advanced Directive [...] Camp Other Health Care Hayden r of Meat Packer Princess Other Health Care Pow er of Meat Packer Care Teams Occupational Health Coordinator Relationship Specialty Start Date End Date Kevin Whiteside DO [address] [place] [address] PCP - General Family Medicine 05/01/18 documented as of this encounter
--- OUTSIDE RECORDS SUMMARY | 2023-06-01 04:46 | External Medical Summary ---
Author Name Unknown Address Unknown Organization K01:LABORATORY [facility] [place] - [facility] [address] [facility] [address] [facility] [address] Laboratory Report Ordering Provider Test Date Status MARCOS PETERS 12/07/2021 11:57:58 Final Observation Date Value Abnormality Reference (Units ) Status WBC, Total 12/07/2021 11:57:58 9.37 4.00-10.80 (K/uL) Final RBC 12/07/2021 11:57:58 4.06 3.85-5.15 (M/uL) Final Hemoglobin 12/07/2021 11:57:58 12.5 12.0-15.3 (g/dL) Final HCT 12/07/2021 11:57:58 41.7 36.0-45.2 (%) Final MCV 12/07/2021 11:57:58 102.7 Above high normal 81.5-97.5 (fL) Final MCH 12/07/2021 11:57:58 30.8 27.0-34.0 (pg) Final MCHC 12/07/2021 11:57:58 30.0 Below low normal 32.0-36.0 (g/dL) Final RDW 12/07/2021 11:57:58 15.7 Above high normal 11.5-15.5 (%) Final MPV 12/07/2021 11:57:58 10.6 6.6-11.1 (fL) Final Nucleated erythrocytes/100 leukocytes [Ratio] in Blood by Automated count 12/07/2021 11:57:58 0 <=0 (/100 WBCs) Final Platelets 12/07/2021 11:57:58 256 140-400 (K/uL) Final Performing Location LABORATORY [facility] [place] - [address] [place] [address]
--- OUTSIDE RECORDS SUMMARY | 2023-06-01 04:46 | External Medical Summary | Summary of Care ---
Author Name Unknown Organization [facility] Address [facility] [place] [address] Care Team Providers Care Cow Tester Name Role Phone Kevin Whiteside DO Primary Care Provider Reason for Visit * Reason Comments Dosage Adjustment Via Phone (anticoag Cl inic) Encounter Details Date Type Department Care Team Description 12/04/2021 Anticoagulation Pharmacy, [facility] [address] [facility] [place] [address] [facility] [place] [address] Acute deep vein thrombosis (DVT) of proximal [...] as of this encounter (statuses as of 12/04/2021) Medications Medication Sig Dispensed Refills Start Date [...] 90 Cap 3 12/18/2019 Active DIURETIC TITRATION PLANIndications:Tree Cutter 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 1 Each 0 04/08/2020 Active Blood Glucose Monitoring Suppl (Preventsys ULTRA 2) w/Device KIT Use to test [...] Active Amoxicillin-Pot Clavulanate 875-125 MG Oral TabletIndications:Ac bishop paiute non-recurrent frontal sinusitis Take by mouth 1 [...] as of this encounter (statuses as of 12/04/2021) Active Problems Problem Noted Date Acute deep [...] 10/14/2014 Overview: ICD-10 update of inactive term [place] filter in place 08/19/2014 History of pulmonary embolus (PE) 2013 Statin intolerance 07/16/2014 HTN, goal below 130/80 02/22/2014 Venous insufficiency 02/07/2013 ELISSA (obstructive sleep apnea) 09/16/2011 Overview: CPAP 11 cwp Mild, AHI 11.3 but with significant nocturnal hypoxemia Dicks Postsurgical hypothyroidism 06/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 documented as of this encounter (statuses as of 12/04/2021) Resolved Problems Problem Noted Date Resolved Date [...] as of this encounter (statuses as of 12/04/2021) Immunizations Name Administration Dates Next Due COVID-19 [...] this encounter Progress Notes * Mina Alonzo, [facility] - 12/04/2021 5:30 PM EST Patient Phone Numbers Called patient to follow up on recent Anticoag start. Patient started on eliquis inpatient, to continue outpatient. MTM attempting to call and confirm patient is able to afford this medication outpatient and to clarify any questions she may have. No answer, Left voicemail. MT will follow up next week. Mina Alonzo [facility] Clinical Pharmacist 12/04/2021, 9:34 AM documented in this encounter Plan of Treatment Upcoming Encounters Date Type Specialty Care Team Description 12/07/2021 Anticoagulation Pharmacy [facility] [address] [place] [address] 12/23/2021 Office Visit Nephrology Erik Lenz MD [address] [place] [place] [address] 12/25/2021 Home Visit Family Medicine Magaly Morales, Community Health Trimming Department Blocker [address] [place] [address] 01/12/2022 Home Visit [facility] Vera Capellan, RN [address] [place] [address] 01/21/2022 Office Visit Family Medicine Kevin Whiteside DO [address] [place] [address] 01/21/2022 Office Visit Pharmacy [facility] [address] [place] [address] 02/18/2022 Office Visit Pulmonary Nikita Sanchez MD [address] [place] [address] 03/08/2022 Imaging Radiology 04/05/2022 Office Visit Cardiology Marjorie Powell PA-C [address] [place] [address] Scheduled Procedures Name Priority Associated Diagnoses Date/Ti [...] Additional history exists CKD PHOS USE SMARTSET 13448 03/12/202202/24, 11/17/2020, 12/24/2019, Additional history exists DIABETES-EYE EXAM 04/14/2022 04/14/2021, , 04/05/2019, Additional history exists CKD GFR USE SMARTSET 92508 05/30/202211/27, 03/20/2021, 03/12/2021, Additional history exists BASIC METABOLIC PANEL (BMP) FOR HTN YEARLY 11/27/2022 11/27/2021, 03/20/2021, 03/12/2021, Additional history exists CKD HGB USE SMARTSET 36590 11/27/202211/27, 03/20/2021, 03/20/2021, Additional history exists Colonoscopy: [...] Documents on File Type Date Recorded Patient Assistant Professor Of Marine Biology Expl anation Advanced Directive Advanced Directive Advanced [...] Camp Other Health Care Hayden r of District Court Bailiff Princess Other Health Care Pow er of District Court Bailiff Care Teams Cow Tester Relationship Specialty Start Date End Date Kevin Whiteside DO [address] [facility] [place] [address] PCP - General Family Medicine 05/01/18 documented as of this encounter
--- OUTSIDE RECORDS SUMMARY | 2023-06-01 04:47 | External Medical Summary | Summary of Care ---
Author Name Unknown Organization [place] [address] Care Team Providers Care Medical Technician Assistant Name Role Phone Kevin Whiteside DO Primary Care Provider Reason for Referral * Evaluate & Treat - Unlimited Visits (Within 10 days (routine)) - Authorized Specialty Diagnoses / Procedures Referred By Contac t Referred To Contact Hematology/Oncology / Hematology Oncology Diagnoses Acute deep vein thrombosis (DVT) of proximal vein of lower extremity, unspecified laterality (HCC) Fe Mayorga DO [address] [place] [address] Referral ID Status Reason Start Date Expiration [...] extremity, unspecified laterality (HCC) Fe Mayorga DO [address] [place] [address] Referral ID Status Reason Start Date Expiration [...] have her medication therapy managed by the [facility] ([facility]) per established policies, procedures, and protocols. I also certify that this referral may serve as an initiation of service for the management of drug therapy in the above noted patient. [facility] providers will be responsible for scheduling patient visits, obtaining appropriate laboratory studies, and adjusting medication management therapy per patient's need, in addition to those roles spelled out in the clinic policy, procedures, and drug management protocols. I understand that the service provided by the [facility] Clinic is voluntary and have informed patient that they can refuse the service at their discretion. I am aware that the [facility] Clinic will provide me with a copy of the patient encounter via my [employer]. I authorize the [facility] Clinic to carry out these activities on my behalf. I consider this program to be a necessary part of the patient's medical care. Fe Mayorga DO Reason for Visit * Reason Comments Emergency Department Follow-Up Encounter Details Date Type Department Care Team Description 12/03/2021 Office Visit [facility] [address] [place] [address] Fe Mayorga DO [address] [place] [address] Acute deep vein thrombosis (DVT) of proximal [...] 0 0 Active Blood Glucose Monitoring Suppl (TapMetrics ULTRA 2) w/Device KIT Use to test [...] 10/14/2014 Overview: ICD-10 update of inactive term Neche filter in place 08/19/2014 History of pulmonary [...] pulmonary embolus (PE) Z86.711 Statin intolerance Z78.[address] Z95.828 Type 2 diabetes mellitus with hemoglobin A1c goal of 7.0%-8.0% ([facility]) E11.9 Fibromyalgia M79.7 Abnormality of gait R26.9 Restless legs syndrome G25.81 Gastroesophageal reflux disease with esophagitis K21.00 Morbid obesity with BMI of 50.0-59.9, adult ([facility]) E66.01, Z68.43 Controlled substance agreement signed Z79.899 Chronic diastolic congestive heart failure ([facility]) I50.32 Mild episode of recurrent major depressive disorder ([facility]) F33.0 Lumbar radiculopathy M54.16 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, NYHA class 1 and CKD stage 3 ([facility]) I13.0, I50.30, N18.30 Hyperparathyroidism, secondary renal ([facility]) [...] 1 Each 0 Blood Glucose Monitoring Suppl (KeybrokerUCH ULTRA 2) w/Device KIT Use to test [...] History: Diagnosis Date ELSIE (acute kidney injury) ([facility]) 06/12/2018 Allergic rhinitis due to other allergen Backache Diverticulosis of colon 01/28/06 DM type 2, not at goal ([facility]) ELLIE (generalized anxiety disorder) 09/13/[address]iter [address] filter in place 08/19/2014 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[facility]) 08/22/2009 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[facility]) 06/12/2018 History of pulmonary embolus (PE) 07/16/2014 HTN, goal below 140/90 Impetigo 09/27/2018 Obesity, BMI not known Perforation of intestine ([facility]) 1996 COLON -- 1996 Pneumonia in aspergillosis(484.6) 09/14/2009 Spinal stenosis of lumbar region without neurogenic claudication 07/15/2020 Spontaneous pneumothorax 09/14/2009 Statin intolerance 07/16/2014 Type 2 diabetes mellitus with hemoglobin A1c goal of 7.0%-8.0% ([facility]) 10/14/2014 ICD-10 update of inactive term Vaginal karmen 07/13/2018 Past Surgical History: Procedure Laterality Date ARTHROPLASTY KNEE TOTAL Right 07/24/14 R COLONOSCOPY, DIAGNOSTIC (RECTUM) 02/18/2016 normal, repeat 10 yrs/[facility] COLONOSCOPY, GI REFERRAL OP 01/28/06 diverticulosis--repeat 10 years INCISION OF [place], PLANNED 06/03/2011 TRACHEOSTOMY PLANNED performed by DANNY HOLDER at [place] [facility] INJECT DX/THER SUBSTANCE INTERLAMINAR LUMBAR/SACRAL W IMAGE GUIDE 05/26/2020 INJECTION SPINE LUMBAR OR SACRAL performed by Raj Ahn, at OR [facility] INJECT DX/THER SUBSTANCE INTERLAMINAR LUMBAR/SACRAL W IMAGE GUIDE 05/14/2021 INJECTION SPINE LUMBAR OR SACRAL performed by Raj Ahn DO at OR [facility] INJECT DX/THER SUBSTANCE INTERLAMINAR LUMBAR/SACRAL W IMAGE GUIDE 08/13/2021 INJECTION SPINE LUMBAR OR SACRAL performed by Raj Ahn DO at OR [facility] KNEE ARTHROSCOPY/DEBRIDEMENT 07/[address] PERMANENT GASTROSTOMY TUBE 09/06/09 GASTROSTOMY WITH CONSTUCTION GASTRIC TUBE performed by AMADOU NUNEZ at [place] [facility] REMOVAL OF THYROID GLAND 06/15/2011 THYROIDECTOMY INCLUDING SUBSTERNAL THYROID CERVICAL APPROACH performed by DANNY HOLDER at OR [facility] REMOVE GALLBLADDER 09/06/09 CHOLECYSTECTOMY performed by AMADOU NUNEZ at OR [facility] REPAIR RECURRENT INCISIONAL HERNIA 1998 REVISION OF COLOSTOMY, SIMPLE 1998 SACROILIAC JOINT INJECT W/GUIDANCE 07/28/2020 INJECTION SACROILIAC JOINT performed by Raj Ahn DO at OR [facility] SUTURE, LARGE INTESTINE W/COLOSTOMY 1996 perforation [...] level: Not on file Occupational History Occupation: [employer] Employer: [email or web address] Occupation: [employer] Employer: [id number] Tobacco Use Smoking status: Former Smoker Packs/day: 1.00 Years: 15.00 Pack years: 15.00 Quit date: 08/26/1997 Years since quittin.2 Smokeless tobacco: Never Used Vaping Use Vaping Use: Never used Substance and Sexual Activity Alcohol use: Not Currently Comment: rare Drug use: No Sexual activity: Not Currently Other Topics Concern Not on file Social History Narrative 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 Social Determinants of Health Financial Resource Strain: [...] (CALCULATED)-OUTSIDE LAB LDL (DIRECT MEASURE)-OUTSIDE LAB HEMOGLOBIN, [id number] LAB PHOSPHORUS-OUTSIDE LAB PTH-OUTSIDE LAB MICROALBUMIN RATIO-OUTSIDE [...] Specialty Care Team Description 12/03/2021 Anticoagulation Pharmacy [facility] [address] [facility] [place] [address] 12/23/2021 Office Visit Nephrology Erik Lenz MD [address] [place] [address] 12/25/2021 Home Visit Family Medicine Magaly Morales, Community Health Sports Teacher [address] [place] [address] 01/12/2022 Home Visit [facility] Vera Capellan RN [address] [facility] [place] [address] 01/21/2022 Office Visit Family Medicine [facility]ide DO [facility] [place] [address] 01/21/2022 Office Visit Pharmacy [facility] [place] [address] 02/18/2022 Office Visit Pulmonary Nikita Sanchez MD [address] [facility] [place] [address] 03/08/2022 Imaging Radiology 04/05/2022 Office Visit Cardiology Marjorie Powell PA-C [address] [place] [address] Scheduled Orders Name Type Priority Associated Diagnoses [...] Additional history exists CKD PHOS USE SMARTSET 08017 03/12/202202/24, 11/17/2020, 12/24/2019, Additional history exists DIABETES-EYE EXAM 04/14/2022 04/14/2021, , 04/05/2019, Additional history exists CKD GFR USE SMARTSET 27206 05/30/202211/27, 03/20/2021, 03/12/2021, Additional history exists BASIC METABOLIC PANEL (BMP) FOR HTN YEARLY 11/27/2022 11/27/2021, 03/20/2021, 03/12/2021, Additional history exists CKD HGB USE SMARTSET 78068 11/27/202211/27, 03/20/2021, 03/20/2021, Additional history exists Colonoscopy: [...] Documents on File Type Date Recorded Patient Retail Selling Floor Leader Expl anation Advanced Directive Advanced Directive Advanced [...] Camp Other Health Care Hayden r of Service Department Manager Princess Allen Other Health Care Pow er of Service Department Manager Care Teams Medical Technician Assistant Relationship Specialty Start Date End Date Kevin Whiteside DO [address] [place] [address] PCP - General Family Medicine 05/01/18 documented as of this encounter
--- OUTSIDE RECORDS SUMMARY | 2023-06-01 04:47 | External Medical Summary | Summary of Care ---
Author Name Unknown Organization [place] [address] Care Team Providers Care Instrumentation And Controls Designer Name Role Phone Kevin Whiteside DO Primary Care Provider Encounter Details Date Type Department Care Team Description 11/27/2021 Scan Encounter [facility] [address] [place] [address] Kevin Whiteside DO [address] [facility] [place] [address] <No scans attached> Allergies Active Allergy Reactions Severity Noted Date Comments Codeine 07/08/2014 hallucination Pollen 05/18/2019 Heparin 09/04/2009 Heparin Induced Thrombocytopenia Hydrocodone Neuro complications (Please comment) 07/28/2020 Empagliflozin Other (Please comment) Medium 05/17/2018 3 yeast infections in 6 weeks after starting Morphine And Related 09/16/1997 Hallucinations Tetanus Toxoid Other (Please comment) 06/15/2011 Passed out documented as of this encounter (statuses as of 11/30/2021) Medications Medication Sig Dispensed Refills Start Date [...] 90 Cap 3 12/18/2019 Active DIURETIC TITRATION PLANIndications:Safety Sitter 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 1 Each 0 04/08/2020 Active Blood Glucose Monitoring Suppl (Energeno ULTRA 2) w/Device KIT Use to test [...] mouth 500 mg daily . 0 Active Cefdinir 300 MG Oral Capsule (Omnicef) Take by mouth 300 mg 2 times a day . 0 Active traMADol [...] before bedtime. 60 Tablet 0 11/26/2021 Active Hospital, Clinic, or Other Facility Administered Medication Ordered Dose Route Frequency Start Date End Date Status Albuterol Sulfate (Proventil) (2.5 MG/3ML) 0.083% inhalation solution 2.5 mgIndications:Chronic hypoxemic respiratory failure (HCC) 2.5 mg NEBULIZER Q4H PRN 10/08/2021 Active documented as of this encounter (statuses as of 11/30/2021) Active Problems Problem Noted Date Hypotension 12/19/2020 Spinal stenosis of lumbar region [...] 10/14/2014 Overview: ICD-10 update of inactive term [place] filter in place 08/19/2014 History of pulmonary embolus (PE) 2013 Statin intolerance 07/16/2014 HTN, goal below 130/80 02/22/2014 Venous insufficiency 02/07/2013 ELISSA (obstructive sleep apnea) 09/16/2011 Overview: CPAP 11 cwp Mild, AHI 11.3 but with significant nocturnal hypoxemia Dicks Postsurgical hypothyroidism 06/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 documented as of this encounter (statuses as of 11/30/2021) Resolved Problems Problem Noted Date Resolved Date [...] as of this encounter (statuses as of 11/30/2021) Immunizations Name Administration Dates Next Due COVID-19 mRNA, LNP-s, No Pre serve, 2-Dose Series (Proteus Agility) 12/29/2020,12/18/2020 Pneumococcal Polysaccharide PPV23 (Pneumovax) 08/22/2009,06/15/2006 Seasonal [...] Encounters Date Type Specialty Care Team Description 12/01/2021 [facility] Vera Capellan RN [address] [place] [address] 12/23/2021 Office Visit Nephrology Erik Lenz MD [address] [place] [address] 12/25/2021 Home Visit Family Medicine Magaly Morales, Community Health Picu Nurse [address] [place] [address] 01/21/2022 Office Visit Family Medicine Kevin Whiteside DO [address] [place] [address] 01/21/2022 Office Visit Pharmacy [facility] Moe Jeramie [address] [place] [address] 02/18/2022 Office Visit Pulmonary Nikita Sanchez MD [address] [place] [address] 04/05/2022 Office Visit Cardiology Marjorie Powell PA-C [address] [place] [address] Scheduled Procedures Name Priority Associated Diagnoses Date/Ti [...] Pts 12 and Over 07/28/2021 07/28/2020, 06/12/2018 CKD GFR USE SMARTSET 47950 09/19/202103/20, 03/12/2021, 12/25/2020, Additional history exists BREAST CANCER SCREENING DISCUSSION YEARLY AGES 40-75 10/01/2021 10/01/2020, 07/10/2019, 06/23/2018, Additional history exists TSH FOR THYROID MEDICATION MONITORING YEARLY 12/25/2021 12/25/2020, 05/06/2020, 03/14/2019, Additional history exists DIABETES-FOOT EXAM 01/14/2022 01/14/2021, 0 11/07/2019, 01/01/2019, Additional history exists CKD PHOS USE SMARTSET 99545 03/12/202202/24, 11/17/2020, 12/24/2019, Additional history exists BASIC METABOLIC PANEL (BMP) FOR HTN YEARLY 03/20/2022 03/20/2021, 03/12/2021, 12/25/2020, Additional history exists CKD HGB USE SMARTSET 61668 03/20/202203/20, 03/20/2021, 03/12/2021, Additional history exists DIABETES-EYE EXAM 04/14/2022 04/14/2021, , 04/05/2019, Additional history exists Colonoscopy: Ages 45-75 02/17/2026 [...] Documents on File Type Date Recorded Patient High Lead Yarder Expl anation Advanced Directive Advanced Directive Advanced [...] Other Health Care Hayden r of Business Analytics Director Princess Allen Other Health Care Pow er of Business Analytics Director Care Teams Instrumentation And Controls Designer Relationship Specialty Start Date End Date Kevin Whiteside DO [address] [facility] [place] [address] PCP - General Family Medicine 05/01/18 documented as of this encounter
--- OUTSIDE RECORDS SUMMARY | 2023-06-01 04:47 | External Medical Summary | Summary of Care ---
Author Name Unknown Organization [place] [address] Care Team Providers Care Agriculture Professor Name Role Phone Kevin Whiteside DO Primary Care Provider Reason for Visit * Reason Comments [facility]: Maintenance Encounter Details Date Type Department Care Team Description 12/01/2021 Home Visit [facility], [facility] [address] [facility] [place] [address] Vera Capellan RN 132 [facility] [place] [address] Allergies Active Allergy Reactions Severity Noted Date Comments Codeine 07/08/2014 hallucination Pollen 05/18/2019 Heparin 09/04/2009 Heparin Induced Thrombocytopenia Hydrocodone Neuro complications (Please comment) 07/28/2020 Empagliflozin Other (Please comment) Medium 05/17/2018 3 yeast infections in 6 weeks after starting Morphine And Related 09/16/1997 Hallucinations Tetanus Toxoid Other (Please comment) 06/15/2011 Passed out documented as of this encounter (statuses as of 12/01/2021) Medications Medication Sig Dispensed Refills Start Date [...] 90 Cap 3 12/18/2019 Active DIURETIC TITRATION PLANIndications:Planning Official 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 1 Each 0 04/08/2020 Active Blood Glucose Monitoring Suppl (Integromics ULTRA 2) w/Device KIT Use to test [...] ([facility]) Inject under the skin 60 Units [...] as of this encounter (statuses as of 12/01/2021) Active Problems Problem Noted Date Hypotension 12/19/2020 [...] as of this encounter (statuses as of 12/01/2021) Resolved Problems Problem Noted Date Resolved Date [...] as of this encounter (statuses as of 12/01/2021) Immunizations Name Administration Dates Next Due COVID-19 [...] Reading Time Taken Comments Blood Pressure 100/60 12/01/2021 9:55 AM EST Pulse 90 12/01/2021 9:55 AM EST Temperature 36.4 C (97.6 F) 12/01/2021 9:55 AM ES T Respiratory Rate 18 12/01/2021 9:55 AM EST Oxygen Saturation 92% 12/01/2021 9:55 AM EST Inhaled Oxygen Concentration - - Weight - - Height - - Body Mass Index - - documented in this encounter Progress Notes * Vera Capellan RN - 12/01/2021 10:00 AM EST [facility] It Project Manager Visit Date: 12/01/2021 Time: 9:40 AM Name: Stephanie Camp : 1955 Current Concerns: Pt seen for return RNCM visit Pt reports she was in ED last week - went to PCP office for sinus issues and was sent to ED for increased edema and redness of RLE and a DVT was found behind right knee - she was put on Eliquis and sent home Still has mild redness of RLE and mild pain at times Pt reports wt has been staying between 340-342 lbs - did not weigh today Blood sugars have been ranging 140-mid 200's Pt reports her sinus issues were not addressed when at clinic or ED d/t concerns of DVT - she is still having sinus pressure, sinus congestion, PND, crackles noted of RLL and RML- does not feel her sinus issues are improving - has been using saline nasal spray and neosynephrine nasal spray Also noted crackles of RML and RLL - had xrays done at ED that show no active disease but also sayslungs were clear at that time. Physical Exam: BP 100/60 | Pulse 90 | Temp 36.4 C (97.6 F) | Resp 18 | LMP 03/11/2003 | SpO2 92% Pain 0 Physical Exam Constitutional: Appearance: She is obese. HENT: Nose: Rhinorrhea (yellow/green) present. Cardiovascular: Rate and Rhythm: Normal rate [...] is warm and dry. Findings: Erythema (mild RLE) present. Neurological: Mental Status: She is alert and oriented to person, place, and time. Problems/Symptoms: Review of Systems Constitutional: Positive for fatigue. HENT: Positive for congestion, postnasal drip, rhinorrhea (yellow/green) and sinus pressure. Eyes: Negative. Respiratory: Positive for shortness of breath (AVENDAÑO - at baseline). Cardiovascular: Positive for leg swelling. Gastrointestinal: Negative. Genitourinary: Negative. Musculoskeletal: Positive for arthralgias, back pain and gait problem. Skin: Positive for color change (mild erythema RLE). Hematological: Negative. Psychiatric/Behavioral: Negative. Medication Reconciliation: (See medication list) Does patient take medications as ordered: Yes Patient Well Being: PHQ2/9: No questionnaires available. No change in living situation. Denies falls Wears PERS [facility]-10 Completed this Visit: Yes. [facility]-10: Reason [...] as advised Wear PERS at all times Start DTP of Lasix 40mg twice a day fx 3 days Ordered Augmentin for sinus infection Home Interventions Provided: Home Intervention: Other; Evaluation Consulted PCP/Specialist Reinforced current Plan of Care, including self-management and medication regimen Patient's 'Red Flags': 1. Increased SOB (with rest or talking) 2. Increased edema/abd bloating 3. Fall w/ injury Patient Needs to Remember: Call [facility] at with any new or worsening [...] & schedule home visit with care steam room attendant(s)as indicated. Provider is in agreement with Plan of Care: Yes Scheduled to follow up with patient in 24 and 48 hrs. Vera Capellan RN 12/01/2021 9:40 AM documented in this encounter Plan of Treatment Upcoming Encounters Date Type Specialty Care Team Description 12/02/2021 Scheduled Telephone [facility] Department Chief Librarian, [facility] [address] [address] 12/03/2021 Scheduled Telephone [facility] Or Department Chief Librarian, [facility] [address] [place] [address] 12/03/2021 Office Visit Family Medicine Fe Mayorga DO [address] [place] [address] 12/23/2021 Office Visit Nephrology Erik Lenz MD [address] [facility] [place] [address] 12/25/2021 Home Visit Family Medicine Magaly Morales, Community Health Conservation Scientist [address] [place], [place] [id number] 01/12/2022 Home Visit [facility] Vera Capellan RN [address] [place] [address] 01/21/2022 Office Visit Family Medicine Kevin Whiteside DO [address] [place] [address] 01/21/2022 Office Visit Pharmacy [facility] [place] [address] [place] [address] 02/18/2022 Office Visit Pulmonary Nikita Sanchez MD [address] [place] [address] 04/05/2022 Office Visit Cardiology Marjorie Powell PA-C [address] [place] [address] Scheduled Procedures Name Priority Associated Diagnoses Date/Ti [...] Additional history exists CKD PHOS USE SMARTSET 52332 03/12/202202/24, 11/17/2020, 12/24/2019, Additional history exists DIABETES-EYE EXAM 04/14/2022 04/14/2021, , 04/05/2019, Additional history exists CKD GFR USE SMARTSET 87515 05/30/202211/27, 03/20/2021, 03/12/2021, Additional history exists BASIC METABOLIC PANEL (BMP) FOR HTN YEARLY 11/27/2022 11/27/2021, 03/20/2021, 03/12/2021, Additional history exists CKD HGB USE SMARTSET 82216 11/27/202211/27, 03/20/2021, 03/20/2021, Additional history exists Colonoscopy: [...] Documents on File Type Date Recorded Patient Auction Block Clerk Expl anation Advanced Directive Advanced Directive [...] Camp Other Health Care Hayden r of Immunochemist Princessambar Allen Other Health Care Pow er of Immunochemist Care Teams Agriculture Professor Relationship Specialty Start Date End Date Kevin Whiteside DO [address] [place] [phone] PCP - General Family Medicine 05/01/18 documented as of this encounter"
--- OUTSIDE RECORDS SUMMARY | 2023-06-01 04:47 | External Medical Summary | Summary of Care ---
Author Name Unknown Organization [place] [address] Care Team Providers Care Can Maker Name Role Phone Stevo Kevin Ocampomelinda Primary Care Provider Encounter Details Date Type Department Care Team Description 11/27/2021 Result Scan Unspecified Department <No scans attached> [...] 90 Cap 3 12/18/2019 Active DIURETIC TITRATION PLANIndications:Patient Access 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 1 Each 0 04/08/2020 Active Blood Glucose Monitoring Suppl (XTRM ULTRA 2) w/Device KIT Use to test [...] 10/14/2014 Overview: ICD-10 update of inactive term [place] filter in place 08/19/2014 History of pulmonary [...] Date Type Specialty Care Team Description 12/03/2021 Office Visit Family Medicine Fe Mayorga DO [address] [place] [address] 12/23/2021 Office Visit Nephrology Erik Lenz MD [address] [place] [address] 12/25/2021 Home Visit Family Medicine Magaly Morales, Community Health Bearing Ring Assembler [address] [place] [address] 01/21/2022 Office Visit Family Medicine Kevin Whiteside DO [address] [place] [address] 01/21/2022 Office Visit Pharmacy [facility] [place] [address] [place] [address] 02/18/2022 Office Visit Pulmonary Nikita Sanchez MD [address] [place] [address] 04/05/2022 Office Visit Cardiology Marjorie Powell PA-C [address] [place] [address] Scheduled Procedures Name Priority Associated Diagnoses Date/Ti [...] Additional history exists CKD PHOS USE SMARTSET 24322 03/12/202202/24, 11/17/2020, 12/24/2019, Additional history exists DIABETES-EYE EXAM 04/14/2022 04/14/2021, , 04/05/2019, Additional history exists CKD GFR USE SMARTSET 25792 05/30/202211/27, 03/20/2021, 03/12/2021, Additional history exists BASIC METABOLIC PANEL (BMP) FOR HTN YEARLY 11/27/2022 11/27/2021, 03/20/2021, 03/12/2021, Additional history exists CKD HGB USE SMARTSET 77797 11/27/202211/27, 03/20/2021, 03/20/2021, Additional history exists Colonoscopy: [...] Procedure Name Priority Date/Time Associated Diagnosis Comments EKG SCANNED RESULT 11/27/2021 documented in this encounter Results * EKG SCANNED RESULT (11/27/2021) Specimen Narrative documented in this encounter Advance Directives Documents on File Type Date Recorded Patient Mixing Technician Expl anation Advanced Directive Advanced Directive [...] Name Relationship Healthcare Agent Relationship Communication Galdino Cortesandrews Other Health Care Hayden r of Surface Boss Princess Allen Other Health Care Pow er of Surface Boss Care Teams Can Maker Relationship Specialty Start Date End Date Kevin Whiteside DO [address] [facility] [place] [address] PCP - General Family Medicine 05/01/18 documented as of this encounter
--- OUTSIDE RECORDS SUMMARY | 2023-06-01 04:47 | External Medical Summary | Summary of Care ---
Author Name Unknown Organization [facility] Address [place] [address] Care Team Providers Care Cassandra Architect Name Role Phone Kevin Whiteside DO Primary Care Provider Reason for Visit * Reason Onset Date Comments [facility]: Maintenance 12/03/2021 Encounter Details Date Type Department Care Team Description 12/03/2021 Scheduled Telephone [facility], [facility] [address] [place] [address] Coordinator, [facility] [address] [place] [address] Allergies Active Allergy Reactions Severity Noted Date [...] 90 Cap 3 12/18/2019 Active DIURETIC TITRATION PLANIndications:Scarifier Operator 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 1 Each 0 04/08/2020 Active Blood Glucose Monitoring Suppl (MVious Xotics ULTRA 2) w/Device KIT Use to test [...] of 12/03/2021) Active Problems Problem Noted Date Hypotension 12/19/2020 [...] 10/14/2014 Overview: ICD-10 update of inactive term [place] filter in place 08/19/2014 History of pulmonary [...] mRNA, LNP-s, No Pre serve, 2-Dose Series (IguanaFix) 12/29/2020,12/18/2020 Pneumococcal Polysaccharide PPV23 (Pneumovax) 08/22/2009,06/15/2006 Seasonal [...] Telephone Encounter - Karyn Clarke LPN - 12/03/2021 10:25 AM EST 48 hr f/u DTP and abx for sinus infection Has visit with PCP office scheduled today Spoke with patient Confirmed she is seeing PCP today Taking abx as prescribed Denies any needs from us as she is seeing PCP today Aware to call [facility] with any needs documented in this encounter Plan of Treatment Upcoming Encounters Date Type Specialty Care Team Description 12/03/2021 Office Visit Family Medicine Fe Mayorga, [address] [place] [address] 12/23/2021 Office Visit [facility] [address] [facility] [address] 12/25/2021 Home Visit Family Medicine Magaly Morales, Community Health Costumed Character Entertainer [address] [place] [address] 01/12/2022 Home Visit [facility] Vera Capellan, RN [address] [place] [address] 01/21/2022 Office Visit Family Medicine Kevin Whiteside DO [address] [place] [address] 01/21/2022 Office Visit Pharmacy [facility] [place] [address] [place] [address] 02/18/2022 Office Visit Pulmonary Nikita Sanchez MD [address] [place] [address] 04/05/2022 Office Visit Cardiology Marjorie Powell PA-C [address] [place] [address] Scheduled Procedures Name Priority Associated Diagnoses Date/Ti [...] Additional history exists CKD PHOS USE SMARTSET 38990 03/12/202202/24, 11/17/2020, 12/24/2019, Additional history exists DIABETES-EYE EXAM 04/14/2022 04/14/2021, , 04/05/2019, Additional history exists CKD GFR USE SMARTSET 91725 05/30/202211/27, 03/20/2021, 03/12/2021, Additional history exists BASIC METABOLIC PANEL (BMP) FOR HTN YEARLY 11/27/2022 11/27/2021, 03/20/2021, 03/12/2021, Additional history exists CKD HGB USE SMARTSET 09603 11/27/202211/27, 03/20/2021, 03/20/2021, Additional history exists Colonoscopy: [...] Documents on File Type Date Recorded Patient Microwave Radio Technician Expl anation Advanced Directive Advanced Directive [...] Camp Other Health Care Hayden r of Seasoner Princess Other Health Care Pow er of Seasoner Care Teams Cassandra Architect Relationship Specialty Start Date End Date Kevin Whiteside DO [address] [place] [address] PCP - General Family Medicine 05/01/18 documented as of this encounter
--- OUTSIDE RECORDS SUMMARY | 2023-06-01 04:47 | External Medical Summary | Summary of Care ---
Author Name Unknown Organization [place] [address] Care Team Providers Care Spreader Name Role Phone Kevin Whiteside DO Primary Care Provider Reason for Referral * Evaluate & Treat - Unlimited Visits (Within 10 days (routine)) - Authorized Specialty Diagnoses / Procedures Referred By Contac t Referred To Contact Hematology/Oncology / Hematology Oncology Diagnoses Acute deep vein thrombosis (DVT) of proximal vein of lower extremity, unspecified laterality (HCC) Fe Mayorga DO [address] [place] [address] Referral ID Status Reason Start Date Expiration [...] extremity, unspecified laterality (HCC) Fe Mayorga DO [address] [place] [address] Referral ID Status Reason Start Date Expiration [...] have her medication therapy managed by the [facility] ([facility]) per established policies, procedures, and protocols. I also certify that this referral may serve as an initiation of service for the management of drug therapy in the above noted patient. [facility] providers will be responsible for scheduling patient visits, obtaining appropriate laboratory studies, and adjusting medication management therapy per patient's need, in addition to those roles spelled out in the clinic policy, procedures, and drug management protocols. I understand that the service provided by the [facility] is voluntary and have informed patient that they can refuse the service at their discretion. I am aware that the [facility] will provide me with a copy of the patient encounter via my Oration In[employer]. I authorize the [facility] to carry out these activities on my behalf. I consider this program to be a necessary part of the patient's medical care. Fe Mayorga DO Reason for Visit * Reason Comments Emergency Department Follow-Up Encounter Details Date Type Department Care Team Description 12/03/2021 Office Visit [facility] [address] [place] [address] Fe Mayorga DO [address] [place] [address] Acute deep vein thrombosis (DVT) of proximal [...] 0 0 Active Blood Glucose Monitoring Suppl (KartRocket ULTRA 2) w/Device KIT Use to test [...] 10/14/2014 Overview: ICD-10 update of inactive term [place] filter in place 08/19/2014 History of pulmonary [...] pulmonary embolus (PE) Z86.711 Statin intolerance Z78.[address] Z95.828 Type 2 diabetes mellitus with hemoglobin A1c goal of 7.0%-8.0% ([facility]) E11.9 Fibromyalgia M79.7 Abnormality of gait R26.9 Restless legs syndrome G25.81 Gastroesophageal reflux disease with esophagitis K21.00 Morbid obesity with BMI of 50.0-59.9, adult ([facility]) E66.01, Z68.43 Controlled substance agreement signed Z79.899 Chronic diastolic congestive heart failure ([facility]) I50.32 Mild episode of recurrent major depressive disorder ([facility]) F33.0 Lumbar radiculopathy M54.16 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, NYHA class 1 and CKD stage 3 ([facility]) I13.0, I50.30, N18.30 Hyperparathyroidism, secondary renal ([facility]) N25.81 Vasculitis ([facility]) I77.6 Primary osteoarthritis of left knee M17.12 [...] 1 Each 0 Blood Glucose Monitoring Suppl (Spyder LynkUCH ULTRA 2) w/Device KIT Use to test [...] 01/28/06 DM type 2, not at goal ([facility]) ELLIE (generalized anxiety disorder) 09/13/2009 Goiter [place] filter in place 08/19/2014 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[facility]) 08/22/2009 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[facility]) 06/12/2018 History of pulmonary embolus (PE) 07/16/2014 [...] ([facility]) 10/14/2014 ICD-10 update of inactive term Vaginal karmen 07/13/2018 Past Surgical History: Procedure Laterality Date ARTHROPLASTY KNEE TOTAL Right 07/24/14 R COLONOSCOPY, DIAGNOSTIC (RECTUM) 02/18/2016 normal, repeat 10 yrs/[facility] COLONOSCOPY, GI REFERRAL OP 01/28/06 diverticulosis--repeat 10 years INCISION OF WINDPIPE, PLANNED 06/03/2011 TRACHEOSTOMY PLANNED performed by DANNY HOLDER at OR [facility] INJECT DX/THER SUBSTANCE INTERLAMINAR LUMBAR/SACRAL W IMAGE GUIDE 05/26/2020 INJECTION SPINE LUMBAR OR SACRAL performed by Raj Ahn, at OR [facility] INJECT DX/THER SUBSTANCE INTERLAMINAR LUMBAR/SACRAL W IMAGE GUIDE 05/14/2021 INJECTION SPINE LUMBAR OR SACRAL performed by Raj Ahn DO at OR [facility] INJECT DX/THER SUBSTANCE INTERLAMINAR LUMBAR/SACRAL W IMAGE GUIDE 08/13/2021 INJECTION SPINE LUMBAR OR SACRAL performed by Raj Ahn DO at OR [facility] KNEE ARTHROSCOPY/DEBRIDEMENT 07/[address] PERMANENT GASTROSTOMY TUBE 09/06/09 GASTROSTOMY WITH CONSTUCTION GASTRIC TUBE performed by AMADOU NUNEZ at OR [facility] REMOVAL OF THYROID GLAND 06/15/2011 THYROIDECTOMY INCLUDING SUBSTERNAL THYROID CERVICAL APPROACH performed by DANNY HOLDER at OR [facility] REMOVE GALLBLADDER 09/06/09 CHOLECYSTECTOMY performed by AMADOU NUNEZ at OR [facility] REPAIR RECURRENT INCISIONAL HERNIA 1998 REVISION OF COLOSTOMY, SIMPLE 1998 SACROILIAC JOINT INJECT W/GUIDANCE 07/28/2020 INJECTION SACROILIAC JOINT performed by Raj Ahn DO at OR [facility] SUTURE, LARGE INTESTINE W/COLOSTOMY 1996 perforation R colon with colostomy VENA CAVA FILTER/LIGATION/CLIP 08/19/09 Frank filter placement through the right femoral 08/19/[address] Lerma at [facility] Review of patient's allergies indicates: Allergen Reactions [...] level: Not on file Occupational History Occupation: [employer] Employer: [email or web address] Occupation: [employer] Employer: [employer] [place] [employer] Tobacco Use Smoking status: Former Smoker Packs/day: 1.00 Years: 15.00 Pack years: 15.00 Quit date: 08/26/1997 Years since quittin.2 Smokeless tobacco: Never Used Vaping Use Vaping Use: Never used Substance and Sexual Activity Alcohol use: Not Currently Comment: rare Drug use: No Sexual activity: Not Currently Other Topics Concern Not on file Social History Narrative 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 [employer] Social Determinants of Health Financial Resource Strain: [...] (CALCULATED)-OUTSIDE LAB LDL (DIRECT MEASURE)-OUTSIDE LAB HEMOGLOBIN, [id number] LAB PHOSPHORUS-OUTSIDE LAB PTH-OUTSIDE LAB MICROALBUMIN RATIO-OUTSIDE [...] Specialty Care Team Description 12/03/2021 Anticoagulation Pharmacy [facility] [address] [facility] [place] [address] 12/23/2021 Office Visit Nephrology Erik Lenz MD [address] [place] [address] 12/25/2021 Home Visit Family Medicine Magaly Morales, Community Health Business Objects [address] [place] [address] 01/12/2022 Home Visit [facility] Vera Capellan RN [address] [facility] [place] [address] 01/21/2022 Office Visit Family Medicine Kevin Whiteside DO [address] [facility] [place] [address] 01/21/2022 Office Visit Pharmacy [facility] [address] [facility] [place] [address] 02/18/2022 Office Visit Pulmonary Nikita Sanchez MD [address] [facility] [place] [address] 03/08/2022 Imaging Radiology 04/05/2022 Office Visit Cardiology Marjorie Powell PA-C [address] [place] [address] Scheduled Orders Name Type Priority Associated Diagnoses [...] Additional history exists CKD PHOS USE SMARTSET 46471 03/12/202202/24, 11/17/2020, 12/24/2019, Additional history exists DIABETES-EYE EXAM 04/14/2022 04/14/2021, , 04/05/2019, Additional history exists CKD GFR USE SMARTSET 30067 05/30/202211/27, 03/20/2021, 03/12/2021, Additional history exists BASIC METABOLIC PANEL (BMP) FOR HTN YEARLY 11/27/2022 11/27/2021, 03/20/2021, 03/12/2021, Additional history exists CKD HGB USE SMARTSET 68540 11/27/202211/27, 03/20/2021, 03/20/2021, Additional history exists Colonoscopy: [...] Documents on File Type Date Recorded Patient Boat Outfitter Expl anation Advanced Directive Advanced Directive Advanced [...] Camp Other Health Care Hayden r of Digitizer Princess Allen Other Health Care Pow er of Digitizer Care Teams Spreader Relationship Specialty Start Date End Date Kevin Whiteside DO [address] [place] [address] PCP - General Family Medicine 05/01/18 documented as of this encounter
--- OUTSIDE RECORDS SUMMARY | 2023-06-01 04:47 | External Medical Summary | Summary of Care ---
Author Name Unknown Organization [place] [address] Care Team Providers Care Sugar Cane Planting Equipment Operator Name Role Phone Kevin Whiteside DO Primary Care Provider Encounter Details Date Type Department Care Team Description 12/01/2021 Orders Only Family [facility] [address] [place] [address] Kevin Whiteside DO [address] [place] [address] Allergies Active Allergy Reactions Severity Noted Date [...] 90 Cap 3 12/18/2019 Active DIURETIC TITRATION PLANIndications:Bow String Maker 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 1 Each 0 04/08/2020 Active Blood Glucose Monitoring Suppl ([employer] ULTRA 2) w/Device KIT Use to test [...] Overview: ICD-10 update of inactive term [place] filter in place 08/19/2014 History of pulmonary [...] Medicine Fe Mayorga DO [address] [place] [address] 12/23/2021 Office Visit Nephrology Erik Lenz MD [address], [place] [address] 12/25/2021 Home Visit Family Medicine Magaly Morales, Community Health Crm Consultant [address] [facility] [address] 01/21/2022 Office Visit Family Medicine Kevin Whiteside DO [address] [place] [address] [address] 01/21/2022 Office Visit Pharmacy [facility] Jeramie [address] [place] [address] 02/18/2022 Office Visit Pulmonary Nikita Sanchez MD [address] [place] [address] 04/05/2022 Office Visit Cardiology Marjorie Powell PA-C [address] [place] [address] [address] Scheduled Procedures Name Priority Associated Diagnoses Date/Ti [...] Additional history exists CKD PHOS USE SMARTSET 44066 03/12/202202/24, 11/17/2020, 12/24/2019, Additional history exists DIABETES-EYE EXAM 04/14/2022 04/14/2021, , 04/05/2019, Additional history exists CKD GFR USE SMARTSET 23066 05/30/202211/27, 03/20/2021, 03/12/2021, Additional history exists BASIC METABOLIC PANEL (BMP) FOR HTN YEARLY 11/27/2022 11/27/2021, 03/20/2021, 03/12/2021, Additional history exists CKD HGB USE SMARTSET 23925 11/27/202211/27, 03/20/2021, 03/20/2021, Additional history exists Colonoscopy: [...] Priority Date/Time Associated Diagnosis Comments CHEMISTRY-OUTSIDE Routine 11/27/2021 documented in this encounter Results * (ABNORMAL) CHEMISTRY-OUTSIDE (11/27/2021) CREATININE-OUTSIDE LAB 1.56(A) 0.6 - 1.2 MG/DL OUTSIDE LAB (SEE SCANNED REPORT) EGFR-OUTSIDE LAB 34.3 ML/MIN OUTSIDE LAB (SEE SCANNED REPORT) POTASSIUM-OUTSIDE LAB 4.0 3.5 - 5.1 MMOL/L OUTSIDE LAB (SEE SCANNED REPORT) GLUCOSE-OUTSIDE LAB 135(A) 70 - 99 MG/DL OUTSIDE LAB (SEE [...] LAB OUTSIDE LAB (SEE SCANNED REPORT) HEMOGLOBIN, [id number] LAB OUTSIDE LAB (SEE SCANNED REPORT) PHOSPHORUS-OUTSIDE LAB OUTSIDE LAB (SEE SCANNED REPORT) PTH-OUTSIDE LAB OUTSIDE LAB (SEE SCANNED REPORT) MICROALBUMIN RATIO-OUTSIDE LAB OUTSIDE LAB (SEE SCANNED REPORT) PROTEIN, UA-OUTSIDE LAB OUTSIDE LAB (SEE SCANNED REPORT) HEMOGLOBIN-OUTSIDE LAB 13.7 12.0 - 16.0 G/DL OUTSIDE LAB (SEE SCANNED REPORT) CHEMISTRY COMMENT-OUTSIDE LAB Comment:ER LABS- CBCD, PT INR, PTT, CMP OUTSIDE LAB (SEE SCANNED REPORT) Specimen Narrative OUTSIDE LAB (SEE SCANNED REPORT) documented in this encounter Advance Directives Documents on File Type Date Recorded Patient Industrial Engineer Expl anation Advanced Directive Advanced Directive [...] Camp Other Health Care Hayden r of Family And Consumer Education Teacher Princess Allen Other Health Care Pow er of Family And Consumer Education Teacher Care Teams Sugar Cane Planting Equipment Operator Relationship Specialty Start Date End Date Kevin Whiteside DO [address] [place] [address] [address] PCP - General Family Medicine 05/01/18 documented as of this encounter
--- OUTSIDE RECORDS SUMMARY | 2023-06-01 04:47 | External Medical Summary | Summary of Care ---
Author Name Unknown Organization [facility] Address [place] [address] Care Team Providers Care Developer Advocate Name Role Phone Kevin Whiteside DO Primary Care Provider Reason for Visit * Reason Onset Date Comments [facility]: Maintenance 12/02/2021 Encounter Details Date Type Department Care Team Description 12/02/2021 Scheduled Telephone [facility], [facility] [address] [place] [address] Coordinator, [facility] [address] [place] [address] Allergies Active Allergy Reactions Severity Noted Date Comments Codeine 07/08/2014 hallucination Pollen 05/18/2019 Heparin 09/04/2009 Heparin Induced Thrombocytopenia Hydrocodone Neuro complications (Please comment) 07/28/2020 Empagliflozin Other (Please comment) Medium 05/17/2018 3 yeast infections in 6 weeks after starting Morphine And Related 09/16/1997 Hallucinations Tetanus Toxoid Other (Please comment) 06/15/2011 Passed out documented as of this encounter (statuses as of 12/02/2021) Medications Medication Sig Dispensed Refills Start Date [...] 90 Cap 3 12/18/2019 Active DIURETIC TITRATION PLANIndications:Pest Control Service 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 1 Each 0 04/08/2020 Active Blood Glucose Monitoring Suppl (fflick ULTRA 2) w/Device KIT Use to test [...] ([facility]) Inject 40 units with meals + sliding scale 1 units for every 25 units BG > 150. 121 mL 3 11/04/2021 Active Tresiba FlexTouch 100 UNIT/ML Subcutaneous Solution Pen-injector (Insulin Degludec)Indications :Type 2 diabetes mellitus with hemoglobin A1c goal of 7.0%-8.0% ([facility]) Inject under the skin 60 [...] as of this encounter (statuses as of 12/02/2021) Active Problems Problem Noted Date Hypotension 12/19/2020 [...] as of this encounter (statuses as of 12/02/2021) Resolved Problems Problem Noted Date Resolved Date [...] as of this encounter (statuses as of 12/02/2021) Immunizations Name Administration Dates Next Due COVID-19 mRNA, LNP-s, No Pre serve, 2-Dose Series (Ingenious Med) 12/29/2020,12/18/2020 Pneumococcal Polysaccharide PPV23 (Pneumovax) 08/22/2009,06/15/2006 Seasonal [...] Telephone Encounter - Angi Flores LPN - 12/02/2021 9:06 AM EST 24 hr f/u DTP and abx for sinus infection No answer, left generic msg for pt to return call. documented in this encounter Plan of Treatment Upcoming Encounters Date Type Specialty Care Team Description 12/03/2021 Scheduled Telephone [facility] Biochemical Engineer, [facility] [address] [place] [address] [address] 12/03/2021 Office Visit Family Medicine Fe Mayorga DO [address] [place] [address] [address] 12/23/2021 Office Visit Nephrology Erik Lenz MD [address] [place] [address] 12/25/2021 Home Visit Family Medicine Magaly Morales, Community Health Mat Gauger [address] [place] [address] 01/12/2022 Home Visit [facility] Vera Capellan RN [address] [place] [address] [address] 01/21/2022 Office Visit Family Medicine Kevin Whiteside DO [address] [place] [address] [address] 01/21/2022 Office Visit Pharmacy [facility] [address] [place] [address] [address] 02/18/2022 Office Visit Pulmonary Nikita Sanchez MD [address] [place] [address] 04/05/2022 Office Visit Cardiology Marjorie Powell, EVIN [address] [place] [address] [address] Scheduled Procedures Name Priority Associated Diagnoses Date/Ti [...] Additional history exists CKD PHOS USE SMARTSET 04806 03/12/202202/24, 11/17/2020, 12/24/2019, Additional history exists DIABETES-EYE EXAM 04/14/2022 04/14/2021, , 04/05/2019, Additional history exists CKD GFR USE SMARTSET 71915 05/30/202211/27, 03/20/2021, 03/12/2021, Additional history exists BASIC METABOLIC PANEL (BMP) FOR HTN YEARLY 11/27/2022 11/27/2021, 03/20/2021, 03/12/2021, Additional history exists CKD HGB USE SMARTSET 47703 11/27/202211/27, 03/20/2021, 03/20/2021, Additional history exists Colonoscopy: [...] Documents on File Type Date Recorded Patient Rn New Graduate Expl anation Advanced Directive Advanced Directive Advanced [...] Other Health Care Hayden r of Senior Java Engineer Princess Other Health Care Pow er of Senior Java Engineer Care Teams Developer Advocate Relationship Specialty Start Date End Date Kevin Whiteside DO [address] [place] [address] [address] PCP - General Family Medicine 05/01/18 documented as of this encounter
--- OUTSIDE RECORDS SUMMARY | 2023-06-01 04:48 | External Medical Summary | Summary of Care ---
Author Name Unknown Organization [place] [address] Care Team Providers Care Permastone Mechanic Name Role Phone Stevo Kevin Gonzalez DO Primary Care Provider Encounter Details Date Type Department Care Team Description 11/13/2021 Home Visit Care Coordination [address] [place] [address] Magaly Morales, Community Health Lockstitch Machine Operator [address] [place], [place] [id number] Allergies Active Allergy Reactions Severity Noted Date Comments Codeine 07/08/2014 hallucination Pollen 05/18/2019 Heparin 09/04/2009 Heparin Induced Thrombocytopenia Hydrocodone Neuro complications (Please comment) 07/28/2020 Empagliflozin Other (Please comment) Medium 05/17/2018 3 yeast infections in 6 weeks after starting Morphine And Related 09/16/1997 Hallucinations Tetanus Toxoid Other (Please comment) 06/15/2011 Passed out documented as of this encounter (statuses as of 11/17/2021) Medications Medication Sig Dispensed Refills Start Date [...] 90 Cap 3 12/18/2019 Active DIURETIC TITRATION PLANIndications:Community Engagement Manager 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 1 Each 0 04/08/2020 Active Blood Glucose Monitoring Suppl (Kardium ULTRA 2) w/Device KIT Use to test [...] Additional Information Patient not taking. Reported on 09/26/2021 Nerve Pain Relief Sublingual Tablet SublingualIndication s:pt [...] % External Patch (HM Lidocaine Patch) Place 1 Patch topically on the skin daily. 0 Active Azithromycin 500 MG Oral Tablet (Zithromax) Take 500 mg by mouth daily. 0 Active Cefdinir 300 MG Oral Capsule (Omnicef) Take 300 mg by mouth 2 times a day. 0 Active traMADol HCl 50 MG Oral Tablet (Ultram)Indications: Chronic pain syndrome Take 1 Tablet by mouth every 8 hours as needed for Pain, Severe. 90 Tablet 0 10/19/2021 Active clonazePAM 0.5 MG Oral Tablet (KlonoPIN)Indication s:Anxiety state Take 1 Tablet by mouth 2 times a day. 60 Tablet 0 10/19/2021 Active BD Pen Needle [...] as of this encounter (statuses as of 11/17/2021) Active Problems Problem Noted Date Hypotension 12/19/2020 [...] 10/14/2014 Overview: ICD-10 update of inactive term [place] filter in place 08/19/2014 History of pulmonary embolus (PE) 2013 Statin intolerance 07/16/2014 HTN, goal below 130/80 02/22/2014 Venous insufficiency 02/07/2013 ELISSA (obstructive sleep apnea) 09/16/2011 Overview: CPAP 11 cwp Mild, AHI 11.3 but with significant nocturnal hypoxemia Dicks Postsurgical hypothyroidism 06/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 documented as of this encounter (statuses as of 11/17/2021) Resolved Problems Problem Noted Date Resolved Date [...] as of this encounter (statuses as of 11/17/2021) Immunizations Name Administration Dates Next Due COVID-19 [...] Reading Time Taken Comments Blood Pressure 108/64 11/13/2021 2:15 PM EST Pulse 87 11/13/2021 2:15 PM EST Temperature 36.6 C (97.8 F) 11/13/2021 2:15 PM ES T Respiratory Rate 22 11/13/2021 2:15 PM EST Oxygen Saturation 96% 11/13/2021 2:15 PM EST Inhaled Oxygen Concentration - - Weight - - Height - - Body Mass Index - - documented in this encounter Progress Notes * Magaly Morales, Community Health Lockstitch Machine Operator - 11/13/2021 2:07 PM EST Community Health Lockstitch Machine Operator Visit Date: 11/13/2021 Time: 2:07 PM Name: Stephanie Talbot Sebastianandrews : 1955 Referral Source: product introduction manager Source of Information: Patient Spoken language: slovak Patient can read in Greek: Yes. Director Global needed: No. COVID-19 screening completed: Yes Vitals: Vital signs completed: Yes, vital signs within normal range. BP 108/64 | Pulse 87 | Temp 36.6 C (97.8 F) | Resp 22 | LMP 03/11/2003 | SpO2 96% Condition Changes: Changes in health or social status since last visit:Patient reporting Using oxegen all the time now using 2 at night 2-4 during the day Right lower leg swelling +1 Left leg trace Sleeping good for the most part Using CPAP at night Getting kelsey meals The patient has new concerns since last visit: No Medications: Medication review completed? No, Taking as orderd Does the patient have barriers to medication adherence? No. Patient reports difficulty paying for medications or might in the future: No. Telehealth: This is a telehealth visit: No. Symptoms Surveys and Evaluations: MAHC10 completed this visit: Yes. Score is 4 or more? Yes, notified Provider/Occasional Caregiver Last flowsheet values for MAHC10: Age 65+: 1 (10/08/2021 11:00 AM) Diagnosis (3 or more co-existing): 1 (10/08/2021 11:00 AM) Prior history of falls within 3 months: 0 (10/08/2021 11:00 AM) Incontinence: 1 (10/08/2021 11:00 AM) Visual impairment: 1 (10/08/2021 11:00 AM) Impaired functional mobility: 1 (10/08/2021 11:00 AM) Environmental hazards: 1 (10/08/2021 11:00 AM) Poly Pharmacy (4 or more prescriptions - any type): 1 (10/08/2021 11:00 AM) Pain affecting level of function: 1 (10/08/2021 11:00 AM) Cognitive impairment: 0 (10/08/2021 11:00 AM) Score - a score of 4 or more is considered at risk for fallin (10/08/2021 11:00 AM) Plan: Reinforced care plan established by care team . Follow Up: Patient encouraged to call the intake phone number for all urgent but not emergent issues. Scheduled to follow up with patient in 6 weeks . Magaly M Brown, Community Health Lockstitch Machine Operator 11/13/2021 2:07 PM Electronically signed by Magaly Morales [facility] Health Lockstitch Machine Operator at 11/17/2021 9:27 AM EST documented in this encounter Plan of Treatment Upcoming Encounters Date Type Specialty Care Team Description 12/01/2021 [facility]ellan[facility] [address] 12/25/2021 Home Visit Family Medicine Magaly Morales Community Health Lockstitch Machine Operator [address] [place] [address] 01/21/2022 Office Visit Family Medicine [facility]ide [facility] [place] [address] 01/21/2022 Office Visit Pharmacy [facility] Jeramie [address] [facility] [place] [address] 02/18/2022 Office Visit Pulmonary Nikita Sanchez MD [address] [place] [address] 04/05/2022 Office Visit Cardiology Marjorie Powell PA-C [address] [facility] [place] [address] Scheduled Procedures Name Priority Associated Diagnoses Date/Ti [...] 07/28/2021 07/28/2020, 06/12/2018 CKD GFR USE SMARTSET 75871 09/19/202103/20, 03/12/2021, 12/25/2020, Additional history exists BREAST CANCER SCREENING DISCUSSION YEARLY AGES 40-75 10/01/2021 10/01/2020, 07/10/2019, 06/23/2018, Additional history exists TSH FOR THYROID MEDICATION MONITORING YEARLY 12/25/2021 12/25/2020, 05/06/2020, 03/14/2019, Additional history exists DIABETES-FOOT EXAM 01/14/2022 01/14/2021, 0 11/07/2019, 01/01/2019, Additional history exists CKD PHOS USE SMARTSET 11791 03/12/202202/24, 11/17/2020, 12/24/2019, Additional history exists BASIC METABOLIC PANEL (BMP) FOR HTN YEARLY 03/20/2022 03/20/2021, 03/12/2021, 12/25/2020, Additional history exists CKD HGB USE SMARTSET 79216 03/20/202203/20, 03/20/2021, 03/12/2021, Additional history exists DIABETES-EYE [...] Documents on File Type Date Recorded Patient Alodize Machine Helper Expl anation Advanced Directive Advanced Directive [...] Camp Other Health Care Hayden r of Pararescue Craftsman Princess Allen Other Health Care Pow er of Pararescue Craftsman Care Teams Permastone Mechanic Relationship Specialty Start Date End Date Kevin Whiteside DO [address] [place] [address] [address] PCP - General Family Medicine 05/01/18 documented as of this encounter"
--- OUTSIDE RECORDS SUMMARY | 2023-06-01 04:48 | External Medical Summary | Summary of Care ---
Author Name Unknown Organization [place] [address] Care Team Providers Care Lining Brusher Name Role Phone Kevin Whiteside DO Primary Care Provider Reason for Visit * Reason Onset Date Comments Appointment 11/09/2021 Encounter Details Date Type Department Care Team Description 11/09/2021 Telephone [facility], [place] [address] [place] [address] Services, Scheduling [address] [place] [address] Appointment Allergies Active Allergy Reactions Severity Noted Date Comments Codeine 07/08/2014 hallucination Pollen 05/18/2019 Heparin 09/04/2009 Heparin Induced Thrombocytopenia Hydrocodone Neuro complications (Please comment) 07/28/2020 Empagliflozin Other (Please comment) Medium 05/17/2018 3 yeast infections in 6 weeks after starting Morphine And Related 09/16/1997 Hallucinations Tetanus Toxoid Other (Please comment) 06/15/2011 Passed out documented as of this encounter (statuses as of 11/09/2021) Medications Medication Sig Dispensed Refills Start Date [...] 90 Cap 3 12/18/2019 Active DIURETIC TITRATION PLANIndications:Monument Carver 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 1 Each 0 04/08/2020 Active Blood Glucose Monitoring Suppl ([employer] ULTRA 2) w/Device KIT Use to test [...] % External Patch ( Lidocaine Patch) Place 1 Patch topically on [...] as of this encounter (statuses as of 11/09/2021) Active Problems Problem Noted Date Hypotension 12/19/2020 [...] 10/14/2014 Overview: ICD-10 update of inactive term [place] filter in place 08/19/2014 History of pulmonary embolus (PE) 2013 Statin intolerance 07/16/2014 HTN, goal below 130/80 02/22/2014 Venous insufficiency 02/07/2013 ELISSA (obstructive sleep apnea) 09/16/2011 Overview: CPAP 11 cwp Mild, AHI 11.3 but with significant nocturnal hypoxemia Dicks Postsurgical hypothyroidism 06/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 documented as of this encounter (statuses as of 11/09/2021) Resolved Problems Problem Noted Date Resolved Date [...] as of this encounter (statuses as of 11/09/2021) Immunizations Name Administration Dates Next Due COVID-19 [...] * Telephone Encounter - ELISSA Rice - 11/09/2021 9:41 AM EST Inbound Call Pt asking to resched kenya viist to 11/13 documented in this encounter Plan of Treatment Upcoming Encounters Date Type Specialty Care Team Description 11/13/2021 Home Visit Family Medicine Magaly Morales, Community Health Rib Bender [address] [place] [address] 11/16/2021 Office Visit Nephrology Erik Lenz MD [address] [place] [address] 12/01/2021 Home Visit [facility] Vera Capellan, RN [address] [place] [address] 01/21/2022 Office Visit Family Medicine Kevin Whiteside DO [address] [place] [address] 01/21/2022 Office Visit Pharmacy [facility] Jeramie [address] [place] [address] 02/18/2022 Office Visit Pulmonary Nikita Sanchez MD [address] [place] [address] 04/05/2022 Office Visit Cardiology Marjorie Powell PA-C [address] [place] [address] Scheduled Procedures Name Priority Associated Diagnoses Date/Ti [...] 07/28/2021 07/28/2020, 06/12/2018 CKD GFR USE SMARTSET 48511 09/19/202103/20, 03/12/2021, 12/25/2020, Additional history exists BREAST CANCER SCREENING DISCUSSION YEARLY AGES 40-75 10/01/2021 10/01/2020, 07/10/2019, 06/23/2018, Additional history exists TSH FOR THYROID MEDICATION MONITORING YEARLY 12/25/2021 12/25/2020, 05/06/2020, 03/14/2019, Additional history exists DIABETES-FOOT EXAM 01/14/2022 01/14/2021, 0 11/07/2019, 01/01/2019, Additional history exists CKD PHOS USE SMARTSET 81760 03/12/202202/24, 11/17/2020, 12/24/2019, Additional history exists BASIC METABOLIC PANEL (BMP) FOR HTN YEARLY 03/20/2022 03/20/2021, 03/12/2021, 12/25/2020, Additional history exists CKD HGB USE SMARTSET 84290 03/20/202203/20, 03/20/2021, 03/12/2021, Additional history exists DIABETES-EYE [...] Documents on File Type Date Recorded Patient Supply Chain Tech Expl anation Advanced Directive Advanced Directive Advanced [...] Camp Other Health Care Hayden r of Linoleum Layer Helper Princess Allen Other Health Care Pow er of Linoleum Layer Helper Care Teams Lining Brusher Relationship Specialty Start Date End Date Kevin Whiteside, [address] [facility] [place] [id number] PCP - General Family Medicine 05/01/18 documented as of this encounter
--- OUTSIDE RECORDS SUMMARY | 2023-06-01 04:48 | External Medical Summary | Summary of Care ---
Author Name Unknown Organization [place] [address] Care Team Providers Care Welfare Director Name Role Phone Migue Whiteside DO Primary Care Provider Reason for Visit * Reason Onset Date Comments Medication Refill 11/03/2021 Encounter Details Date Type Department Care Team Description 11/03/2021 Refill [facility] [address] [place] [address] Migue Whiteside DO [address] [place] [address] Spinal stenosis of lumbar region without neurogenic claudication; Lumbar radiculopathy; Fibromyalgia; Moderate episode of recurrent major depressive disorder (HCC); Primary osteoarthritis of both knees; POSTSURGICAL HYPOTHYROID; Type 2 diabetes mellitus with hemoglobin A1c goal of 7.0%-8.0% ([facility]); Restless legs syndrome Allergies Active Allergy Reactions Severity Noted Date Comments Codeine 07/08/2014 hallucination Pollen 05/18/2019 Heparin 09/04/2009 Heparin Induced Thrombocytopenia Hydrocodone Neuro complications (Please comment) 07/28/2020 Empagliflozin Other (Please comment) Medium 05/17/2018 3 yeast infections in 6 weeks after starting Morphine And Related 09/16/1997 Hallucinations Tetanus Toxoid Other (Please comment) 06/15/2011 Passed out documented as of this encounter (statuses as of 11/05/2021) Medications Medication Sig Dispensed Refills Start Date [...] 0 04/08/2020 Active Blood Glucose Monitoring Suppl (ReferralMD ULTRA 2) w/Device KIT Use to test BG values 1 Kit 0 05/20/2020 Active clobetasol propionate (TEMOVATE) 0.05 % creamIndications:Kalee constantinous Apply to rash on the hands and [...] on 09/26/2021 Nerve Pain Relief Sublingual Tablet SublingualIndicatio ns:pt [...] 10/19/2021 Active clonazePAM 0.5 MG Oral Tablet (KlonoPIN)Indicatio ns:Anxiety state Take 1 Tablet by mouth 2 times a day. 60 Tablet 0 10/19/2021 Active Levothyroxine Sodium 200 MCG Oral Tablet [...] before bedtime. 100 Tablet 1 11/05/2021 Active DULoxetine HCl 60 MG Oral Capsule Delayed Release Particles (Cymbalta)Indicatio ns:Fibromyalgia,Mod erate episode of recurrent major depressive disorder (HCC),Primary osteoarthritis of both knees Take by mouth 1 Capsule in the morning. Along with 30 mg capsule to total 90 mg daily.. 100 Capsule 1 11/04/2021 Active DULoxetine HCl 60 MG Oral Capsule Delayed Release Particles (CYMBALTA)Indicatio ns:Fibromyalgia,Mod erate episode of recurrent major depressive disorder (HCC),Primary osteoarthritis of both knees Take 1 Cap by mouth daily. Along with 30 mg capsule to total 90 mg daily. 90 Cap 3 10/02/2020 11/04/19 22 Discontinu ed(Refill) rOPINIRole HCl 2 MG Oral Tablet (Requip)Indications :Restless legs syndrome Take 1 Tab by mouth at bedtime. 90 Tab 3 12/09/2020 11/03/19 22 Discontinu ed(Refill) Tresiba FlexTouch 100 UNIT/ML Subcutaneous Solution Pen-injector (Insulin Degludec)Indication s:Type 2 diabetes mellitus with hemoglobin A1c goal of 7.0%-8.0% (HCC) Inject 60 Units under the skin daily. 45 mL 3 12/18/2020 11/04/19 22 Discontinu ed(Refill) Nortriptyline HCl 50 MG Oral Capsule (Pamelor)Indication s:Fibromyalgia Take 1 Cap by mouth at bedtime. 90 Cap 1 02/24/2021 11/03/19 22 Discontinu ed(Refill) NovoLOG FlexPen 100 UNIT/ML Subcutaneous Solution Pen-injector (insulin aspart)Indications: Type 2 diabetes mellitus with hemoglobin A1c goal of 7.0%-8.0% ([facility]) Inject 40 units with meals + sliding scale 1 units for every 25 units BG > 150. 121 mL 3 03/20/2021 11/04/19 22 Discontinu ed(Refill) Levothyroxine Sodium 200 MCG Oral Tablet (Levoxyl)Indication s:Postsurgical hypothyroidism TAKE ONE TABLET BY MOUTH IN THE MORNING AT LEAST 30 MINUTES PRIOR TO BREAKFAST OR OTHER MEDS 90 Tab 1 04/27/2021 11/03/19 22 Discontinu ed(Refill) Hospital, Clinic, or Other Facility Administered Medication Ordered Dose Route Frequency Start Date End Date Status Albuterol Sulfate (Proventil) (2.5 MG/3ML) 0.083% inhalation solution 2.5 mgIndications:Chronic hypoxemic respiratory failure (HCC) 2.5 mg NEBULIZER Q4H PRN 10/08/2021 Active documented as of this encounter (statuses as of 11/05/2021) Active Problems Problem Noted Date Hypotension 12/19/2020 [...] as of this encounter (statuses as of 11/05/2021) Resolved Problems Problem Noted Date Resolved Date [...] as of this encounter (statuses as of 11/05/2021) Immunizations Name Administration Dates Next Due COVID-19 [...] Telephone Encounter - Migue Whiteside DO - 11/05/2021 9:36 AM EST Signed Prescriptions: Disp Refills Levothyroxine Sodium 200 MCG Oral Tablet (*100 Ta*0 Sig: TAKE ONE TABLET BY MOUTH IN THE MORNING AT LEAST 30 MINUTES PRIOR TO BREAKFAST OR OTHER MEDS Authorizing Provider: MIGUE WHITESIDE Ordering User: NAYELI GILLIS Nortriptyline HCl 50 MG Oral Capsule (Sho*100 Ca*1 Sig: Take by mouth 1 Capsule before bedtime. Auth orizing Provider: MIGUE WHITESIDE Ordering User: NAYELI GILLIS rOPINIRole HCl 2 MG Oral Tablet (Requip) 100 Ta*1 Sig: Take by mouth 1 Tablet before bedtime. Authorizing Provider: MIGUE WHITESIDE DULoxetine HCl 60 MG Oral Capsule Delayed *100 Ca*1 Sig: Take by mouth 1 Capsule in the morning. Along with 30 mg capsule to total 90 mg daily.. Authorizing Provider: MIGUE WHITESIDE Ordering User: NAYELI GILLIS * Telephone Encounter - Nayelishaye Kumarlucía Gillis, [facility] - 11/04/2021 12:35 PM EST Pending Prescriptions: Disp Refills rOPINIRole HCl 2 MG Oral Tablet (Requip) 100 Ta*1 Sig: Take by mouth 1 Tablet before bedtime. Signed Prescriptions: Disp Refills Levothyroxine Sodium 200 MCG Oral Tablet (*100 Ta*0 Sig: TAKE ONE TABLET BY MOUTH IN THE MORNING AT LEAST 30 MINUTES PRIOR TO BREAKFAST OR OTHER MEDS Authorizing Provider: MIGUE WHITESIDE Ordering User: NAYELI GILLIS Nortriptyline HCl 50 MG Oral Capsule (Sho*100 Ca*1 Sig: Take by mouth 1 Capsule before bedtime. Authorizing Provider: MIGUE WHITESIDE Ordering User: NAYELI GILLIS DULoxetine HCl 60 MG Oral Capsule Delayed *100 Ca*1 Sig: Take by mouth 1 Capsule in the morning. Along with 30 mg capsule to total 90 mg daily.. Nichol wong Provider: MIGUE WHITESIDE Ordering User: NAYELI GILLIS * Telephone Encounter - Nayeli Gillis [facility] - 11/04/2021 12:34 PM EST Please send 100DS to patients new mail order pharmacy. Pending Prescriptions: Disp Refills rOPINIRole HCl 2 MG Oral Tablet (Requip) 100 Ta*1 Sig: Take by mouth 1 Tablet before bedtime. Last Visit: 09/29/2021 Next Visit: 01/21/2022 If no future appointments scheduled, and last appointment is greater than a year ago, please schedule patient for a follow-up appointment Last date the medication was ordered: 12/09/20 Pharmacy: [facility]- [place] Is this request for a controlled substance?No Urine Drug Screen: Results for orders placed or performed in visit on 09/04/18 OPIOIDS/BENZO COMPLIANCE MONITORING W/INTERP Result Value COMPLIANCE INTERP (NOTE) URINE DRUG SCREEN RESULT Amphetamine NEGATIVE Barbiturates NEGATIVE Benzodiazepines REFER TO CONFIRMATION RESULT (A) Cannabinoids NEGATIVE Cocaine Metabolite NEGATIVE METHADONE METABOLITE NEGATIVE Morphine / Codeine NEGATIVE OXYCODONE NEGATIVE COMMENT THE ABOVE SCREENING RESULTS ARE PRESUMPTIVE AND CAN ONLY BE USED FOR MEDICAL PURPOSES. CONFIRMATORY TESTING IS AVAILABLE UPON REQUEST. Cutoff Concentration URINE VALID INTERP NORMAL CREATININE JOHNNY 50 NITRITE JOHNNY 20 pH JOHNNY 4.9 *Note: Due to a large number of results and/or encounters for the requested time period, some results have not been displayed. A complete set of results can be found in Results Review. Patient Phone Numbers Labs: Lab Results Component Value Date/Time CREAT 1.6 (H) 03/20/2021 03:37 PM CREAT 2.0 (H) 05/06/2020 08:46 AM POTASSIUM 4.6 03/20/2021 03:37 PM POTASSIUM 4.0 05/06/2020 08:46 AM TSH 3.88 12/25/2020 10:10 AM TSH 5.35 (H) 05/06/2020 08:46 AM LDLCALC UNINTERPRETABLE RESULT 03/14/2019 01:54 PM LDLDIRECT 126 03/14/2019 01:54 PM LDLDIRECT 109 07/14/2017 12:35 PM ALT 27 05/06/2020 08:46 AM HGBA1C 8.3 (H) 11/17/2020 01:00 PM HGBA1C 7.3 (H) 01/23/2020 11:11 AM * Telephone Encounter - Nayeli Gillis RPh - 11/04/2021 12:26 PM EST Duloxetine sent today in separate encounter -unpended Levo sent x 0 refills - TSH due soon. wty insufficient on requip RX for me to re-route - will forward to provider. Pt managed by [facility] for diabetes - wty insufficient on scripts to re-route (forwarding to MTM in separate encounter) Thank you, Nayeli Gillis, [facility] Clinical Pharmacist TelePharmacy 11/04/21 12:34 PM [phone] * Telephone Encounter - CHALO Figueroa - 11/03/2021 3:09 PM EST Pending Prescriptions: Disp Refills DULoxetine HCl 60 MG Oral Capsule Delayed*90 Cap*3 Sig: Take by mouth 1 Capsule in the morning. Along with 30 mg capsule to total 90 mg daily.. Levothyroxine Sodium 200 MCG Oral Tablet *90 Tab*1 Sig: TAKE ONE TABLET BY MOUTH IN THE MORNING AT LEAST 30 MINUTES PRIOR TO BREAKFAST OR OTHER MEDS Nortriptyline HCl 50 MG Oral Capsule (Alicia*90 Cap*1 Sig: Take by mouth 1 Capsule before bedtime. NovoLOG FlexPen 100 UNIT/ML Subcutaneous *121 mL 3 Sig: Inject 40 units with meals + sliding scale 1 units for every 25 units BG > 150. rOPINIRole HCl 2 MG Oral Tablet (Requip) 90 Tab*3 Sig: Take by mouth 1 Tablet before bedtime. Tresiba FlexTouch 100 UNIT/ML Subcutaneou*45 mL 3 Sig: Inject under the skin 60 Units in the morning. Last Visit: 09/29/2021 Next Visit: 01/21/2022 If no future appointments scheduled, and last appointment is greater than a year ago, please schedule patient for a follow-up appointment Last date the medication was ordered: 10/02/2020,04/27/2021,02/24/2021,03/20/2021,12/09/2020,12/18/2020 Pharmacy: [facility]- [place] Is this request for a controlled substance?No Urine Drug Screen: Results for orders placed or performed in visit on 09/04/18 OPIOIDS/BENZO COMPLIANCE MONITORING W/INTERP Result Value COMPLIANCE INTERP (NOTE) URINE DRUG SCREEN RESULT Amphetamine NEGATIVE Barbiturates NEGATIVE Benzodiazepines REFER TO CONFIRMATION RESULT (A) Cannabinoids NEGATIVE Cocaine Metabolite NEGATIVE METHADONE METABOLITE NEGATIVE Morphine / Codeine NEGATIVE OXYCODONE NEGATIVE COMMENT THE ABOVE SCREENING RESULTS ARE PRESUMPTIVE AND CAN ONLY BE USED FOR MEDICAL PURPOSES. CONFIRMATORY TESTING IS AVAILABLE UPON REQUEST. Cutoff Concentration URINE VALID INTERP NORMAL CREATININE JOHNNY 50 NITRITE JOHNNY 20 pH JOHNNY 4.9 *Note: Due to a large number of results and/or encounters for the requested time period, some results have not been displayed. A complete set of results can be found in Results Review. Patient Phone Numbers Labs: Lab Results Component Value Date/Time CREAT 1.6 (H) 03/20/2021 03:37 PM CREAT 2.0 (H) 05/06/2020 08:46 AM POTASSIUM 4.6 03/20/2021 03:37 PM POTASSIUM 4.0 05/06/2020 08:46 AM TSH 3.88 12/25/2020 10:10 AM TSH 5.35 (H) 05/06/2020 08:46 AM LDLCALC UNINTERPRETABLE RESULT 03/14/2019 01:54 PM LDLDIRECT 126 03/14/2019 01:54 PM LDLDIRECT 109 07/14/2017 12:35 PM ALT 27 05/06/2020 08:46 AM HGBA1C 8.3 (H) 11/17/2020 01:00 PM HGBA1C 7.3 (H) 01/23/2020 11:11 AM documented in this encounter Plan of Treatment Upcoming Encounters Date Type Specialty Care Team Description 11/12/2021 Home Visit Family Medicine Magaly Morales, Community Health Dishwasher [address] [place], [place] [phone] 11/16/2021 Office Visit Nephrology Erik Lenz MD [address] [place] [address] 12/01/2021 Home Visit [facility] Vera Capellan, RN [address] [facility] [place] [address] 01/21/2022 Office Visit Family Medicine Migue Whiteside DO [address] [place] [address] 01/21/2022 Office Visit [address] [facility] Moe Bobo [address] [place] [address] 02/18/2022 Office Visit Pulmonary [facility] [address] [facility] [address] 04/05/2022 Office Visit Cardiology Marjorie Powell PA-C [address] [place] [address] Scheduled Procedures Name Priority Associated Diagnoses Date/Ti me COLONOSCOPY FLEXIBLE PROXIMAL DIAGNOSTIC Recall Colon cancer screening Health Maintenance Due Date Last Done Comments BASIC METABOLIC PANEL (BMP) FOR HTN YEARLY 1973 TSH FOR THYROID MEDICATION MONITORING YEARLY 1973 Cologuard: Ages 45-75 2000 Colonoscopy: Ages 45-75 2000 Colorectal Cancer Screening (Colonoscopy 10 Years; Sigmoidoscopy 5 Years; Cologuard 3 Years; FOBT 1 Year): Ages 45-75 2000 FOBT: Ages 45-75 2000 [...] 07/28/2021 07/28/2020, 06/12/2018 CKD GFR USE SMARTSET 32299 09/19/202103/20, 03/12/2021, 12/25/2020, Additional history exists BREAST CANCER SCREENING DISCUSSION YEARLY AGES 40-75 10/01/2021 10/01/2020, 07/10/2019, 06/23/2018, Additional history exists DIABETES-FOOT EXAM 01/14/2022 01/14/2021, 0 11/07/2019, 01/01/2019, Additional history exists CKD PHOS USE SMARTSET 81145 03/12/202202/24, 11/17/2020, 12/24/2019, Additional history exists CKD HGB USE SMARTSET 06311 03/20/202203/20, 03/20/2021, 03/12/2021, Additional history exists DIABETES-EYE EXAM 04/14/2022 04/14/2021, , 04/05/2019, Additional history exists Zoster Vaccines Completed 05/08/2020, 10/27, 12/11/2015 Influenza [...] osteoarthrosis, lower leg POSTSURGICAL HYPOTHYROID Postsurgical hypothyroidism Type 2 diabetes mellitus with hemoglobin A1c goal of 7.0%-8.0% (HCC) Restless legs syndrome Restless legs syndrome (RLS) documented in this encounter Advance Directives Documents on File Type Date Recorded Patient Filling Station Laborer Expl anation Advanced Directive Advanced Directive Advanced [...] Camp Other Health Care Hayden r of Licensed Massage Practitioner Princess Allen Other Health Care Pow er of Licensed Massage Practitioner Care Teams Welfare Director Relationship Specialty Start Date End Date Migue Whiteside DO [address] [place] [address] PCP - General Family Medicine 05/01/18 documented as of this encounter
--- OUTSIDE RECORDS SUMMARY | 2023-06-01 04:48 | External Medical Summary | Summary of Care ---
Author Name Unknown Organization [place] [address] Care Team Providers Care Patents Examiner Name Role Phone Migue Whiteside DO Primary Care Provider Reason for Visit * Reason Onset Date Comments Medication Refill 11/04/2021 Encounter Details Date Type Department Care Team Description 11/04/2021 Refill Pharmacy, [facility] [address] [address] [place] [phone] Migue Whiteside DO [address] [place] [address] Type 2 diabetes mellitus with hemoglobin A1c goal of 7.0%-8.0% ([facility]) Allergies Active Allergy Reactions Severity Noted Date Comments Codeine 07/08/2014 hallucination Pollen 05/18/2019 Heparin 09/04/2009 Heparin Induced Thrombocytopenia Hydrocodone Neuro complications (Please comment) 07/28/2020 Empagliflozin Other (Please comment) Medium 05/17/2018 3 yeast infections in 6 weeks after starting Morphine And Related 09/16/1997 Hallucinations Tetanus Toxoid Other (Please comment) 06/15/2011 Passed out documented as of this encounter (statuses as of 11/04/2021) Medications Medication Sig Dispensed Refills Start Date [...] 0 04/08/2020 Active Blood Glucose Monitoring Suppl (Celergo ULTRA 2) w/Device KIT Use to test [...] 200 mg Oral DAILY, Reported on 09/26/2021 rOPINIRole HCl 2 MG Oral Tablet (Requip)Indications :Restless legs syndrome Take 1 Tab by mouth at bedtime. 90 Tab 3 12/09/2020 Active Acetaminophen 500 MG Oral Tablet (Acetaminophen [...] before bedtime. 100 Capsule 1 11/04/2021 Active Cyclobenzaprine HCl 10 MG Oral [...] the morning. 45 mL 3 11/04/2021 Active Tresiba FlexTouch 100 UNIT/ML Subcutaneous Solution Pen-injector (Insulin Degludec)Indication s:Type 2 diabetes mellitus with hemoglobin A1c goal of 7.0%-8.0% (HCC) Inject 60 Units under the skin daily. 45 mL 3 12/18/2020 11/04/19 22 Discontinu ed(Refill) NovoLOG FlexPen 100 UNIT/ML Subcutaneous Solution Pen-injector (insulin aspart)Indications: Type 2 diabetes mellitus with hemoglobin A1c goal of 7.0%-8.0% (HCC) Inject 40 units with meals + sliding scale 1 units for every 25 units BG > 150. 121 mL 3 03/20/2021 11/04/19 22 Discontinu ed(Refill) Hospital, Clinic, or Other Facility Administered Medication Ordered Dose Route Frequency Start Date End Date Status Albuterol Sulfate (Proventil) (2.5 MG/3ML) 0.083% inhalation solution 2.5 mgIndications:Chronic hypoxemic respiratory failure (HCC) 2.5 mg NEBULIZER Q4H PRN 10/08/2021 Active documented as of this encounter (statuses as of 11/04/2021) Active Problems Problem Noted Date Hypotension 12/19/2020 [...] 10/14/2014 Overview: ICD-10 update of inactive term Collins filter in place 08/19/2014 History of pulmonary embolus (PE) 2013 Statin intolerance 07/16/2014 HTN, goal below 130/80 02/22/2014 Venous insufficiency 02/07/2013 ELISSA (obstructive sleep apnea) 09/16/2011 Overview: CPAP 11 cwp Mild, AHI 11.3 but with significant nocturnal hypoxemia Dicks Postsurgical hypothyroidism 06/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 documented as of this encounter (statuses as of 11/04/2021) Resolved Problems Problem Noted Date Resolved Date [...] as of this encounter (statuses as of 11/04/2021) Immunizations Name Administration Dates Next Due COVID-19 [...] encounter Miscellaneous Notes * Telephone Encounter - Rose Avila, [facility] - 11/04/2021 12:55 PM EST Signed Prescriptions: Disp Refills NovoLOG FlexPen 100 UNIT/ML Subcutaneous S*121 mL 3 Sig: Inject 40 units with meals + sliding scale 1 units for every 25 units BG > 150. Authorizing Provider: MIGUE WHITESIDE Ordering User: ROSE AVILA Tresiba FlexTouch 100 UNIT/ML Subcutaneous*45 mL 3 Sig: Inject under the skin 60 Units in the morning. Auth orizing Provider: MIGUE WHITESIDE Ordering User: ROSE AVILA * Telephone Encounter - Nayeli Kumarlucía Jessu, [facility] - 11/04/2021 12:31 PM EST Please send refills to new pharmacy per patient request. Patient managed by [facility]. Routed to incorrect pool initially and subsequently sent to correct pool. Pending Prescriptions: Disp Refills NovoLOG FlexPen 100 UNIT/ML Subcutaneous *121 mL 3 Sig: Inject 40 units with meals + sliding scale 1 units for every 25 units BG > 150. Tresiba FlexTouch 100 UNIT/ML Subcutaneou*45 mL 3 Sig: Inject under the skin 60 Units in the morning. Last Visit: 10/05/2021 Next Visit: 01/21/2022 If no future appointments scheduled, and last appointment is greater than a year ago, please schedule patient for a follow-up appointment Last date the medication was ordered: 03/20/21-novolog; 12/18/20-tresiba Pharmacy: [facility] [place]- [place] Is this request for a controlled [...] VALID INTERP NORMAL CREATININE JOHNNY 50 NITRITE JHONNY 20 pH JOHNNY 4.9 *Note: Due to [...] Visit Family Medicine Magaly Morales, Community Health Soda Worker [address] [place] [address] 11/16/2021 Office Visit Nephrology Erik Lenz MD [address] [place] [address] 12/01/2021 Home Visit [facility] Vera Capellan, RN [address] [place] [address] 01/21/2022 Office Visit Family Medicine Migue Whiteside DO [address] [place] [address] 01/21/2022 Office Visit Pharmacy [facility] Jeramie [address] [place] [address] 02/18/2022 Office Visit Pulmonary Nikita Sanchez MD [address] [place] [address] 04/05/2022 Office Visit Cardiology Marjorie Powell PA-C [address] [place] [address] Scheduled Procedures Name Priority Associated Diagnoses Date/Ti me COLONOSCOPY FLEXIBLE PROXIMAL DIAGNOSTIC Recall Colon cancer screening Health Maintenance Due Date Last Done Comments Pneumococcal Vaccine: 65+ Years (2 of 2 - PPSV23) 2020 08/22/2009, 06/15/2006 DIABETES-URINE ALBUMIN/CREATININE EVERY 12 MONTHS 05/24/2020 05/24/2019, 05/01/2018, 03/03/2017, Additional history exists DIABETES-HGBA1C EVERY 6 MONTHS 05/17/2021 11/17/2020, 01/23/2020, 11/07/2019, Additional history exists COVID-19 Vaccine (3 - Booster) 05/31/2021 12/29/2020, 12/18/2020 Depression Screening, Annual for Pts 12 and Over 07/28/2021 07/28/2020, 06/12/2018 CKD GFR USE SMARTSET 86365 09/19/202103/20, 03/12/2021, 12/25/2020, Additional history exists BREAST CANCER SCREENING DISCUSSION YEARLY AGES 40-75 10/01/2021 10/01/2020, 07/10/2019, 06/23/2018, Additional history exists DIABETES-FOOT EXAM 01/14/2022 01/14/2021, 0 11/07/2019, 01/01/2019, Additional history exists CKD PHOS USE SMARTSET 20219 03/12/202202/24, 11/17/2020, 12/24/2019, Additional history exists CKD HGB USE SMARTSET 72522 03/20/202203/20, 03/20/2021, 03/12/2021, Additional history exists DIABETES-EYE [...] Documents on File Type Date Recorded Patient Ice Skating Teacher Expl anation Advanced Directive Advanced Directive [...] Camp Other Health Care Hay[place] r of Mobile Designer Princess Staplesfany Other Health Care Pow er of Mobile Designer Care Teams Patents Examiner Relationship Specialty Start Date End Date Migue Whiteside DO [address] [place] [address] PCP - General Family Medicine 05/01/18 documented as of this encounter
--- OUTSIDE RECORDS SUMMARY | 2023-06-01 04:48 | External Medical Summary | Continuity of Care Document ---
Author Name Unknown Organization [facility] Address [address] [place], [place] [id number] Care Team Providers Care Sampling Theory Teacher Name Role Phone Kevin Whiteside Primary Care Physician [phone] Encounter [facility] [id number] Date(s): 11/02/21 - 11/02/21 [facility] [address] [facility], [address] [place] [phone] Discharge Disposition: Home or Self Care Attending Physician: EVIN Waggoner Lynn Referring Physician: MD Crooks Manabendra Results Radiology Reports * Exam Date Time Procedure Performing Provider Status 11/02/21 1:37 PM VL Carotid Duplex Bilateral Jb Puckett; Final Notes: (VL Carotid Duplex Bilateral) Reason For Exam: R ICA stenosis VL Carotid Duplex Bilateral [facility] FINAL REPORT Name: GEENA MAC : 1955 Visit: [id number] Date: 02 Nov 2021 TYPE OF TEST: Cerebrovascular Duplex REASON FOR TEST Right ICA stenosis - 6 month follow up INTERPRETATION/FINDINGS Duplex imaging of the bilateral extracranial carotid and vertebral arteries was performed. Technically challenging exam due to patient's irregular breathing and body habitus. 1. 60-69% stenosis in the right internal carotid artery. 2. No hemodynamically significant stenosis in the left internal carotid artery. 3. Retrograde flow in the right vertebral artery. >50% stenosis of the right subclavian artery (ratio 2.2). Pressure gradient noted right < left. 4. Antegrade flow in the left vertebral artery. 5. Normal flow in the left subclavian artery. Plaque Morphology: Complex, calcified plaque in the bulbs and ICA bilaterally. Retrospective comparison: No prior in-house carotid duplex exams available for comparison. IMPRESSION/COMMENTS I have personally reviewed the data relevant to the interpretation of this study. TECHNOLOGIST: KATHY Riley,RDMS,RVT PHYSICIAN: Cesar Whitten M.D. Signed: 11/02/2021 10:48 PM Final Dictated by:MD Whitten Faisal Dictated DT/TM:11/02/2021 10:48 Signed by:MD Whitten Faisal Signed (Electronic Signature):11/02/2021 10:48 Transcribed by:ALEM Social History Social History Type Response Sex Female
--- OUTSIDE RECORDS SUMMARY | 2023-06-01 04:48 | External Medical Summary | Summary of Care ---
Author Name Unknown Organization [place] [address] Care Team Providers Care Phlebotomy Supervisor Name Role Phone Kevin Whiteside DO Primary Care Provider Reason for Visit * Reason Comments Acute 3 week hx of fatigue , weakness, shortness of breath and possible fluid retention Encounter Details Date Type Department Care Team Description 11/27/2021 Office Visit Family [facility] [address] [place] [address] Darline Lopez MD [address] [place] [address] Swelling of right lower extremity*; Dyspnea, unspecified type; History of pulmonary embolus (PE) Allergies Active [...] as of this encounter (statuses as of 11/27/2021) Medications Medication Sig Dispensed Refills Start Date [...] 90 Cap 3 12/18/2019 Active DIURETIC TITRATION PLANIndications:Civil Preparedness Coordinator 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 1 Each 0 04/08/2020 Active Blood Glucose Monitoring Suppl (Connectem ULTRA 2) w/Device KIT Use to test [...] 7.0%-8.0% ([facility]) Inject 40 units with meals [...] as of this encounter (statuses as of 11/27/2021) Active Problems Problem Noted Date Hypotension 12/19/2020 [...] as of this encounter (statuses as of 11/27/2021) Resolved Problems Problem Noted Date Resolved Date [...] as of this encounter (statuses as of 11/27/2021) Immunizations Name Administration Dates Next Due COVID-19 [...] Sign Reading Time Taken Comments Blood Pressure 130/74 11/27/2021 1:31 PM EST Pulse 112 11/27/2021 1:31 PM EST Temperature 36.4 C (97.6 F) 11/27/2021 1 :31 PM EST Respiratory Rate - - Oxygen Saturation 93% 11/27/2021 1:3 1 PM EST while on 4L of oxygen Inhaled Oxygen Concentration - - Weight 157.1 kg (346 lb 6.4 oz) 11/27/2021 1:31 PM EST Height - - Body Mass Index 59.46 10/08/2021 4:02 PM EST documented in this encounter Progress Notes * Darline Lopez MD - 11/27/2021 1:53 PM EST Images from the original note were not included. History of Present Illness Stephanie Camp is a 66 year old female that presents for Acute (3 week hx of fatigue, weakness, shortness of breath and possible fluid retention) HPI Past three weeks more fatigue, more short of breath. No fevers. Some constipation, now resolved. Some coughing and sneezing, not much. Eyes are watery/red/itchy. No sore throat. Head feels stuffed up. Normally has no sense of smell. Upper belly/diaphragm is sore. Some pressure in chest. R leg is more swollen than usual, skin light red up to knees. Always worse on R. (s/p TKR) Took lasix pill today. Hasn't tried metolazone yet. Weight is up 10 lb in 2 months. Has not had COVID. Had booster end of September. No known exposures. Past medical history notable for chronic diastolic heart failure, obstructive sleep apnea, type 2 diabetes, hyperparathyroidism, hypothyroidism, dyslipidemia, hypertension, GERD, history of pulmonaryembolism during extended ICU stay for bilateral PNA in 2008. No nicotine. No MJ Rare wine, otherwise not much alcohol. medication and allergy list reviewed Problem list reviewed Physical Exam Vitals: 11/27/21 1331 Temp: 36.4 C (97.6 F) Pulse: 112 SpO2: 93% BP: 130/74 BP Readings from Last 3 Encounters: 11/27/21 130/74 11/13/21 108/64 10/20/21 104/62 Wt Readings from Last 3 Encounters: 11/27/21 (!) 157.1 kg (346 lb 6.4 oz) 10/08/21 (!) 156 kg (344 lb) 10/05/21 (!) 152.5 kg (336 lb 3.2 oz) Physical Exam Vitals and nursing note reviewed. Constitutional: General: She is not in acute distress. Appearance: She is not ill-appearing. Comments: Nasal cannula, 3L HENT: Head: Normocephalic and atraumatic. Mouth/Throat: Mouth: Mucous membranes are dry. Pharynx: No oropharyngeal exudate or posterior oropharyngeal erythema. Eyes: General: No scleral icterus. Pupils: Pupils are equal, round, and reactive to light. Cardiovascular: Rate and Rhythm: Normal rate and regular rhythm. Heart sounds: No murmur heard. Pulmonary: Effort: Pulmonary effort is normal. Breath sounds: Normal breath sounds. Musculoskeletal: Right lower leg: Edema (faint redness, increase in size, not pitting, tender in popliteal fossa) present. Left lower leg: Edema (less than R, no erythema) present. Skin: General: Skin is warm and dry. Psychiatric: Behavior: Behavior normal. I have reviewed the following results: CMP, Lipid Panel, Hemoglobin A1C, TSH and CBC Echocardiogram 2019 showed grade 1 diastolic dysfunction but otherwise normal. Stress echo 2013 negative for inducible ischemia. EKG 01/2021 showed low voltage QRS, consider pulmonary disease/pericardial effusion/normal variant.No significant change from 3 years prior. Assessment and Plan Swelling of right lower extremity Call from vascular, patient has DVT in popliteal vein. Patient instructed to go to [facility] emergency department as needs evaluation for Pulmonary Embolism given increased AVENDAÑO in past week. - VASC DUPLEX VENOUS LE UNILAT; Future Dyspnea, unspecified type - XR CHEST 2 VIEWS - D-DIMER; Future - CBC; Future - COMPREHENSIVE METABOLIC PANEL; Future - BNP (NT-PROBNP); Future - TSH; Future History of pulmonary embolus (PE) Wrap-Up Time: I spent a total of 30-39 minutes (exact time 35 mins) on the date of service in preparation, delivery, and documentation of the care provided to Stephanie Camp excluding any time spent in the performance of separately billed services. documented in this encounter Plan of Treatment Upcoming Encounters Date Type Specialty Care Team Description 12/01/2021 [facility] [address] [facility] [address] 12/25/2021 Home Visit Family Medicine Magaly Morales, Community Health Breakdown Worker [address] [place] [address] 01/21/2022 Office Visit Family Medicine Stevo Kevinronit OcampomelindaDO [address] [place] [address] 01/21/2022 Office Visit Pharmacy [facility] Jeramie [address] [place] [address] 02/18/2022 Office Visit Pulmonary Nikita Sanchez MD [address] [place] [address] 04/05/2022 Office Visit Cardiology Marjorie Powell PA-C [address] [place] [address] Pending Results Name Type Priority Associated Diagnoses Date /Time XR CHEST 2 VIEWS Medical Imaging Routine Dyspnea, unspecified type 11/27/2021 2:34 PM EST Scheduled Orders Name Type Priority Associated Diagnoses Orde r Schedule D-DIMER Lab STAT Dyspnea, unspecified type Expected: 11/27/2021 (Approximate), Expires: 11/27/2022 CBC Lab Routine Dyspnea, unspecified type Expected: 11/27/2021 (Approximate), Expires: 11/27/2022 COMPREHENSIVE METABOLIC PANEL Lab Routine Dyspnea, unspecified type Expected: 11/27/2021 (Approximate), Expires: 11/27/2022 BNP (NT-PROBNP) Lab Routine Dyspnea, unspecified type Expected: 11/27/2021 (Approximate), Expires: 11/27/2022 TSH Lab Routine Dyspnea, unspecified type Expected: 11/27/2021 (Approximate), Expires: 11/27/2022 Scheduled Procedures Name Priority Associated Diagnoses Date/Ti [...] 07/28/2021 07/28/2020, 06/12/2018 CKD GFR USE SMARTSET 96333 09/19/202103/20, 03/12/2021, 12/25/2020, Additional history exists BREAST CANCER SCREENING DISCUSSION YEARLY AGES 40-75 10/01/2021 10/01/2020, 07/10/2019, 06/23/2018, Additional history exists TSH FOR THYROID MEDICATION MONITORING YEARLY 12/25/2021 12/25/2020, 05/06/2020, 03/14/2019, Additional history exists DIABETES-FOOT EXAM 01/14/2022 01/14/2021, 0 11/07/2019, 01/01/2019, Additional history exists CKD PHOS USE SMARTSET 36456 03/12/202202/24, 11/17/2020, 12/24/2019, Additional history exists BASIC METABOLIC PANEL (BMP) FOR HTN YEARLY 03/20/2022 03/20/2021, 03/12/2021, 12/25/2020, Additional history exists CKD HGB USE SMARTSET 90163 03/20/202203/20, 03/20/2021, 03/12/2021, Additional history exists DIABETES-EYE [...] Not on filedocumented as of this encounter Results * VASC DUPLEX VENOUS LE UNILAT (11/27/2021 3:23 PM EST) Anatomical Region Laterality Modality Lower Extremity, Vascular Ultras ound Specimen Narrative Surendra Galeano MD - 11/27/2021 4:00 PM EST VASCULAR LAB RESULTS DATE OF EXAMINATION: 11/27/21 INDICATION: Localized swelling, mass and lump, right lower limb LOWER EXTREMITY VENOUS DUPLEX EXAMINATION Immediately before proceeding with the vascular lab procedure reported below, the identity of the patient, the correct exam and the correct procedural site were identified. Color flow Doppler, spectral analysis, and transducer compression techniques were applied during this ultrasound image examination. RIGHT LOWER EXTREMITY On duplex examination the right common femoral vein, the sapheno-femoral junction and the femoral vein in the thigh are all free of internal echoes and demonstrate normal transducer compressibility during thomas scale imaging and normal respiratory and augmentation response during Doppler interrogation. The posterior tibial veins and peroneal veins demonstrate no evidence of thrombosis. The contralateral common femoral vein is patent and free of internal echoes. Right common femoral vein has phasic flow, is compressible and echolucent. Right femoral vein has phasic flow, is compressible and echolucent. Right popliteal vein has continuous flow, is non-compressible and echogenic. Right posterior tibial vein is not visualized. Right peroneal vein is not visualized. CONCLUSIONS: Acute deep venous thrombosis in the right lower extremity in the segments as noted above. Preliminary report was given to Dr. Darline Lopez on 11/27/2021 at 3:24pm via [employer] . documented in this encounter Visit Diagnoses Diagnosis Swelling of right lower extremity- Primary Swelling of limb Dyspnea, unspecified type History of pulmonary embolus (PE) Personal history of pulmonary embolism Swelling of right lower extremity Swelling of limb documented in this encounter Advance Directives Documents on File Type Date Recorded Patient Fairing Man Expl anation Advanced Directive Advanced Directive Advanced [...] Camp Other Health Care Hayden r of Quill Cleaning Machine Operator Princess Allen Other Health Care Pow er of Quill Cleaning Machine Operator Care Teams Phlebotomy Supervisor Relationship Specialty Start Date End Date Kevin Whiteside DO [address] [place] [address] PCP - General Family Medicine 05/01/18 documented as of this encounter
--- OUTSIDE RECORDS SUMMARY | 2023-06-01 04:48 | External Medical Summary | Summary of Care ---
Author Name Unknown Organization [place] [address] Care Team Providers Care Carbon Coater Machine Operator Name Role Phone Kevin Whiteside DO Primary Care Provider Reason for Visit * Reason Onset Date Comments Medication Refill 11/25/2021 Encounter Details Date Type Department Care Team Description 11/25/2021 Refill [facility] [address] [place] [address] Kevin Whiteside DO [address] [place] [address] Anxiety state Allergies Active Allergy Reactions Severity Noted Date Comments Codeine 07/08/2014 hallucination Pollen 05/18/2019 Heparin 09/04/2009 Heparin Induced Thrombocytopenia Hydrocodone Neuro complications (Please comment) 07/28/2020 Empagliflozin Other (Please comment) Medium 05/17/2018 3 yeast infections in 6 weeks after starting Morphine And Related 09/16/1997 Hallucinations Tetanus Toxoid Other (Please comment) 06/15/2011 Passed out documented as of this encounter (statuses as of 11/26/2021) Medications Medication Sig Dispensed Refills Start Date [...] 0 04/08/2020 Active Blood Glucose Monitoring Suppl ([employer] ULTRA 2) w/Device KIT Use to [...] before bedtime. 60 Tablet 0 11/26/2021 Active clonazePAM 0.5 MG Oral Tablet (KlonoPIN)Indicatio ns:Anxiety state Take 1 Tablet by mouth 2 times a day. 60 Tablet 0 10/19/2021 11/26/19 Discontinu ed(Refill) Hospital, Clinic, or Other Facility Administered Medication Ordered Dose Route Frequency Start Date End Date Status Albuterol Sulfate (Proventil) (2.5 MG/3ML) 0.083% inhalation solution 2.5 mgIndications:Chronic hypoxemic respiratory failure (HCC) 2.5 mg NEBULIZER Q4H PRN 10/08/2021 Active documented as of this encounter (statuses as of 11/26/2021) Active Problems Problem Noted Date Hypotension 12/19/2020 [...] 10/14/2014 Overview: ICD-10 update of inactive term [place] filter in place 08/19/2014 History of pulmonary embolus (PE) 2013 Statin intolerance 07/16/2014 HTN, goal below 130/80 02/22/2014 Venous insufficiency 02/07/2013 ELISSA (obstructive sleep apnea) 09/16/2011 Overview: CPAP 11 cwp Mild, AHI 11.3 but with significant nocturnal hypoxemia Dicks Postsurgical hypothyroidism 06/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 documented as of this encounter (statuses as of 11/26/2021) Resolved Problems Problem Noted Date Resolved Date [...] as of this encounter (statuses as of 11/26/2021) Immunizations Name Administration Dates Next Due COVID-19 [...] encounter Miscellaneous Notes * Telephone Encounter - Sukhdev Lopez MD - 11/26/2021 9:01 AM EST Signed Prescriptions: Disp Refills clonazePAM 0.5 MG Oral Tablet (KlonoPIN) 60 Tab*0 Sig: Take by mouth 1 Tablet in the morning AND 1 Tablet before bedtime.Authorizing Provider: SUKHDEV LOPEZ * Telephone Encounter - Sukhdev Lopez MD - 11/26/2021 9:00 AM EST I have reviewed the patient's controlled substance dispensing history in the Prescription Drug Monitoring Program in compliance with the [facility] regulations before prescribing a controlled substance. * Telephone Encounter - Stephanie Cook MED ASSIST - 11/25/2021 5:14 PM EST Pending Prescriptions: Disp Refills clonazePAM 0.5 MG Oral Tablet (KlonoPIN) 60 Tab*0 Sig: Take by mouth 1 Tablet in the morning AND 1 Tablet before bedtime. documented in this encounter Plan of Treatment Upcoming Encounters Date Type Specialty Care Team Description 12/01/2021 Home Visit [facility] Vera Capellan, RN [address] [place] [address] 12/25/2021 Home Visit Family Medicine Magaly Morales, Community Health Tool Carrier [address], [place] [id number] 01/21/2022 Office Visit Family Medicine Kevin Whiteside DO [address] [place] [address] 01/21/2022 Office Visit Pharmacy [facility] [address] [place] [address] 02/18/2022 Office Visit Pulmonary Nikita Sanchez MD [address] [place] [address] 04/05/2022 Office Visit Cardiology Marjorie Powell PA-C [address] [place] [address] Scheduled Procedures Name Priority Associated Diagnoses Date/Ti [...] 07/28/2021 07/28/2020, 06/12/2018 CKD GFR USE SMARTSET 87322 09/19/202103/20, 03/12/2021, 12/25/2020, Additional history exists BREAST CANCER SCREENING DISCUSSION YEARLY AGES 40-75 10/01/2021 10/01/2020, 07/10/2019, 06/23/2018, Additional history exists TSH FOR THYROID MEDICATION MONITORING YEARLY 12/25/2021 12/25/2020, 05/06/2020, 03/14/2019, Additional history exists DIABETES-FOOT EXAM 01/14/2022 01/14/2021, 0 11/07/2019, 01/01/2019, Additional history exists CKD PHOS USE SMARTSET 77398 03/12/202202/24, 11/17/2020, 12/24/2019, Additional history exists BASIC METABOLIC PANEL (BMP) FOR HTN YEARLY 03/20/2022 03/20/2021, 03/12/2021, 12/25/2020, Additional history exists CKD HGB USE SMARTSET 92793 03/20/202203/20, 03/20/2021, 03/12/2021, Additional history exists DIABETES-EYE [...] on File Type Date Recorded Patient Claims Clerk Expl anation Advanced Directive Advanced Directive [...] Camp Other Health Care Hayden r of Paint Booth Operator Princess Staplesfany Other Health Care Pow er of Paint Booth Operator Care Teams Carbon Coater Machine Operator Relationship Specialty Start Date End Date Kevin Whiteside, [address] [place] [address] PCP - General Family Medicine 05/01/18 documented as of this encounter
--- OUTSIDE RECORDS SUMMARY | 2023-06-01 04:48 | External Medical Summary | Summary of Care ---
Author Name Unknown Organization [place] [address] Care Team Providers Care Patient Accounts Clerk Name Role Phone Kevin Whiteside DO Primary Care Provider Encounter Details Date Type Department Care Team Description 11/12/2021 Scan Encounter [facility] [address] [place] [address] Kevin Whiteside DO [address] [facility] [place] [address] <No scans attached> Allergies Active Allergy Reactions [...] 90 Cap 3 12/18/2019 Active DIURETIC TITRATION PLANIndications:Ground Support Equipment Fitter 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 1 Each 0 04/08/2020 Active Blood Glucose Monitoring Suppl ([employer] ULTRA 2) w/Device KIT Use to test [...] 10/14/2014 Overview: ICD-10 update of inactive term [place] filter in place 08/19/2014 History of [...] Home Vera Capellan, RN [address] [place] [address] 12/25/2021 Home Visit Family Medicine Magaly Morales, Community Health Intellectual Property Paralegal [address] [place] [address] 01/21/2022 Office Visit Family Medicine Kevin Whiteside DO [address] [place] [address] 01/21/2022 Office Visit [facility] [address] [place] [address] 02/18/2022 Office Visit Pulmonary Nikita Sanchez MD [address] [place] [address] 04/05/2022 Office Visit Cardiology Marjorie Powell PA-C [address] [place] [address] Scheduled Procedures Name Priority Associated Diagnoses Date/Ti [...] 07/28/2021 07/28/2020, 06/12/2018 CKD GFR USE SMARTSET 38534 09/19/202103/20, 03/12/2021, 12/25/2020, Additional history exists BREAST CANCER SCREENING DISCUSSION YEARLY AGES 40-75 10/01/2021 10/01/2020, 07/10/2019, 06/23/2018, Additional history exists TSH FOR THYROID MEDICATION MONITORING YEARLY 12/25/2021 12/25/2020, 05/06/2020, 03/14/2019, Additional history exists DIABETES-FOOT EXAM 01/14/2022 01/14/2021, 0 11/07/2019, 01/01/2019, Additional history exists CKD PHOS USE SMARTSET 71334 03/12/202202/24, 11/17/2020, 12/24/2019, Additional history exists BASIC METABOLIC PANEL (BMP) FOR HTN YEARLY 03/20/2022 03/20/2021, 03/12/2021, 12/25/2020, Additional history exists CKD HGB USE SMARTSET 46246 03/20/202203/20, 03/20/2021, 03/12/2021, Additional history exists DIABETES-EYE [...] Documents on File Type Date Recorded Patient Major Sales Associate Expl anation Advanced Directive Advanced Directive Advanced [...] Camp Other Health Care Hayden r of Passenger 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 Princess Allen Other Health Care Pow er of Passenger 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 Care Teams Patient Accounts Clerk Relationship Specialty Start Date End Date Kevin Whiteside DO [address] [place] [address] PCP - General Family Medicine 05/01/18 documented as of this encounter
--- OUTSIDE RECORDS SUMMARY | 2023-06-01 04:48 | External Medical Summary | Continuity of Care Document ---
Author Name Unknown Organization [place] [address] [facility] Address [address] [place], [place] [id number] Care Team Providers Care Deli Cutter Slicer Name Role Phone WhitesideSergeyKevin S Primary Care Physician [phone] Encounter [facility] [id number] Date(s): 11/12/21 - 11/12/21 [facility] [address], [address] [place] [phone] Encounter Diagnosis Carotid stenosis, right(Discharge Diagnosis) - 11/12/21 Discharge Disposition: Home or Self Care Attending Physician: MD Kitty, Mirza Lawson Referring Physician: MD Crooks Manabendra Allergies, Adverse Reactions, Alerts Substance Reaction Severity Status heparin Heparin-induced thrombocytopenia with thr ombosis Active morphine Agitation Active Jardiance UTI - urinary tract infection in pregnanc y Active Medications clonazePAM 0.5 mg oral tablet Start: 11/12/21 11:26:00 EST, 1 tab, PO, bid Start Date: 11/12/21 Status: Ordered cyclobenzaprine 10 mg oral tablet Start: 11/12/21 11:25:00 EST Start Date: 11/12/21 Status: Ordered dicyclomine Start: 11/12/21 11:31:00 EST Start Date: 11/12/21 Status: Ordered DULoxetine 30 mg oral delayed release capsule Start: 11/12/21 11:25:00 EST, 1 cap, PO, Daily Start Date: 11/12/21 Status: Ordered furosemide 40 mg oral tablet Start: 11/12/21 11:26:00 EST, 0.5 tab, PO, bid Start Date: 11/12/21 Status: Ordered gabapentin 300 mg oral capsule [...] for dizziness Start Date: 11/12/21 Status: Ordered nortriptyline 50 mg oral capsule Start: 11/12/21 11:26:00 EST, 1 cap, PO, qhs Start Date: 11/12/21 Status: Ordered NovoLOG FlexPen 100 units/mL injectable solution Start: 11/12/21 11:26:00 EST, sliding scale Start Date: 11/12/21 Status: Ordered ondansetron 4 mg oral tablet Start: 11/12/21 11:25:00 EST Start Date: 11/12/21 Status: Ordered Potassium Chloride (Uwz-[id number]-Rxb M10) 10 mEq oral tablet, extended release [...] Date: 11/12/21 Status: Ordered Problem List Condition Effective Dates Status Health Status Inform ant Carotid stenosis, right(Confirmed) Active Diagnosis Diagnosis Type Effective Dates Health Status Cl inical Service Informant Carotid stenosis, right Discharge Diagnosis 11/12/21 Social History Social History Type Response Sex Female
--- OUTSIDE RECORDS SUMMARY | 2023-06-01 04:49 | External Medical Summary | Summary of Care ---
Author Name Unknown Organization [place] [address] Care Team Providers Care Performance Engineer Name Role Phone Migue Whiteside DO Primary Care Provider Reason for Referral * Medication Prior Authorization - Closed Specialty Diagnoses / Procedures Referred By Ethan chao Referred To Contact Diagnoses Chronic pain syndrome Migue Whiteside DO [address] [place] [address] Referral ID Status Reason Start Date Expiration Date Visits Re quested Visits Authorized [id number] Closed 1 1 Reason for Visit * Reason Onset Date Comments Medication Refill 10/17/2021 Encounter Details Date Type Department Care Team Description 10/17/2021 Refill Family Practice [facility] [address] [place] [address] Migue Whiteside DO [address] [place] [address] Chronic pain syndrome; Anxiety state Allergies Active Allergy Reactions Severity Noted Date Comments Codeine 07/08/2014 hallucination Pollen 05/18/2019 Heparin 09/04/2009 Heparin Induced Thrombocytopenia Hydrocodone Neuro complications (Please comment) 07/28/2020 Empagliflozin Other (Please comment) Medium 05/17/2018 3 yeast infections in 6 weeks after starting Morphine And Related 09/16/1997 Hallucinations Tetanus Toxoid Other (Please comment) 06/15/2011 Passed out documented as of this encounter (statuses as of 10/19/2021) Medications Medication Sig Dispensed Refills Start Date [...] 0 04/08/2020 Active Blood Glucose Monitoring Suppl ([employer] ULTRA 2) w/Device KIT Use to test [...] 200 mg Oral DAILY, Reported on 09/26/2021 DULoxetine HCl 60 MG Oral Capsule Delayed Release Particles (CYMBALTA)Indicatio ns:Fibromyalgia,Mod erate episode of recurrent major depressive disorder (HCC),Primary osteoarthritis of both knees Take 1 Cap by mouth daily. Along with 30 mg capsule to total 90 mg daily. 90 Cap 3 10/02/2020 Active rOPINIRole HCl 2 MG Oral Tablet (Requip)Indications :Restless legs syndrome Take 1 Tab by mouth at bedtime. 90 Tab 3 12/09/2020 Active Acetaminophen 500 MG Oral Tablet (Acetaminophen Extra Strength) Take 500 mg by mouth every 6 hours as needed. 0 Active Tresiba FlexTouch 100 UNIT/ML Subcutaneous Solution Pen-injector (Insulin Degludec)Indication s:Type 2 diabetes mellitus with hemoglobin A1c goal of 7.0%-8.0% ([facility]) Inject 60 Units under the skin daily. 45 mL 3 12/18/2020 Active Meclizine HCl 12.5 MG Oral Tablet (Antivert)Indicatio ns:Vertigo Take 1 Tab by mouth 3 times a day as needed for Dizziness. 30 Tab 1 12/29/2020 Active Levothyroxine Sodium 50 MCG Oral Tablet (Levoxyl)Indication s:Hyperparathyroidi sm, secondary renal ([facility]) Take 1 Tab by mouth daily. (at least 30 min prior to breakfast or other meds) 30 Tab 11 01/14/2021 Active Colchicine 0.6 MG Oral TabletIndications:L eukocytoclastic vasculitis (HCC) Take 1/2 tab daily 45 Tab 1 02/09/2021 Active Additional Information Patient not taking. Reported on 09/26/2021 Dicyclomine HCl 20 MG Oral Tablet (Bentyl) Take 1 Tab by mouth 4 times a day as needed for Pain, Mild. For abdominal pain 120 Tab 11 02/17/2021 Active Nortriptyline HCl 50 MG Oral Capsule (Pamelor)Indication s:Fibromyalgia Take 1 Cap by mouth at bedtime. 90 Cap 1 02/24/2021 Active Nerve Pain Relief Sublingual Tablet SublingualIndicatio ns:pt taking Nervive, nerve relief tablets at bedtime Place under the tongue. Indications: pt taking Nervive, nerve relief tablets at bedtime 0 Active NovoLOG FlexPen 100 UNIT/ML Subcutaneous Solution Pen-injector (insulin aspart)Indications: Type 2 diabetes mellitus with hemoglobin A1c goal of 7.0%-8.0% ([facility]) Inject 40 units with meals + sliding scale 1 units for every 25 units BG > 150. 121 mL 3 03/20/2021 Active Furosemide 40 MG Oral Tablet (Lasix)Indications: Chronic diastolic congestive heart failure ([facility]) Take 0.5 Tabs by mouth 2 times a day. May take an additional 20 mg 2 to 3 days per week as needed for worsening swelling 135 Tab 3 04/20/2021 Active Levothyroxine Sodium 200 MCG Oral Tablet (Levoxyl)Indication s:Postsurgical hypothyroidism TAKE ONE TABLET BY MOUTH IN THE MORNING AT LEAST 30 MINUTES PRIOR TO BREAKFAST OR OTHER MEDS 90 Tab 1 04/27/2021 Active CPAP every night at bedtime. 0 Active Gabapentin 300 MG Oral Capsule (Neurontin) Take 300 mg by mouth 2 times a day. 0 Active metOLazone 2.5 MG Oral Tablet (Zaroxolyn) Take 2.5 mg by mouth daily as needed. Do not take unless instructed by provider 0 Active Trulicity 4.5 MG/0.5ML Subcutaneous Solution Pen-injector (Dulaglutide) Inject 1 pen under the skin weekly 2 mL 5 07/28/2021 Active traZODone HCl 50 MG Oral Tablet (Desyrel) Take 1 Tablet by mouth at bedtime. 90 Tablet 1 08/10/2021 Active DULoxetine HCl 30 MG Oral Capsule Delayed Release Particles (Cymbalta) TAKE ONE CAPSULE BY MOUTH ONE TIME DAILY. TAKE WITH 60 MG CAPSULE FOR A TOTAL OF 90 MG 90 Capsule 1 08/14/2021 Active Ondansetron HCl 4 MG Oral Tablet (Zofran)Indications :Vertigo Take 1 Tablet by mouth every 6 hours as needed for Nausea. 30 Tablet 6 08/31/2021 Active Cyclobenzaprine HCl 10 MG Oral Tablet (Flexeril)Indicatio ns:Spinal stenosis of lumbar region without neurogenic claudication,Lumbar radiculopathy TAKE ONE TABLET BY MOUTH AT BEDTIME NEEDED FOR SPASM 30 Tablet 0 09/09/2021 Active BD Pen Needle Short U/F 31G X 8 MM (Insulin Pen Needle) use five times daily 200 Each 5 09/09/2021 Active Potassium Chloride Ayleen ER 10 MEQ [...] mouth 2 times a day. 0 Active OneTouch Ultra Blue In Vitro Strip (Glucose Blood) Check sugars 3-4 times daily, E11.9 400 Strip 3 10/15/2021 Active traMADol HCl 50 MG Oral Tablet (Ultram)Indications :Chronic pain syndrome Take 1 Tablet by mouth every 8 hours as needed for Pain, Severe. 90 Tablet 0 10/19/2021 Active clonazePAM 0.5 MG Oral Tablet (KlonoPIN)Indicatio ns:Anxiety state Take 1 Tablet by mouth 2 times a day. 60 Tablet 0 10/19/2021 Active traMADol HCl 50 MG Oral Tablet (Ultram)Indications :Chronic pain syndrome Take 1 Tab by mouth every 8 hours as needed for Pain, Severe. 90 Tab 0 07/20/2021 2 Discontinu ed(Refill) clonazePAM 0.5 MG Oral Tablet (KlonoPIN)Indicatio ns:Anxiety state Take 1 Tablet by mouth 2 times a day. 60 Tablet 0 09/10/2021 2 Discontinu ed(Refill) Hospital, Clinic, or Other Facility Administered Medication Ordered Dose Route Frequency Start Date End Date Status Albuterol Sulfate (Proventil) (2.5 MG/3ML) 0.083% inhalation solution 2.5 mgIndications:Chronic hypoxemic respiratory failure (HCC) 2.5 mg NEBULIZER Q4H PRN 10/08/2021 Active documented as of this encounter (statuses as of 10/19/2021) Active Problems Problem Noted Date Hypotension 12/19/2020 [...] as of this encounter (statuses as of 10/19/2021) Resolved Problems Problem Noted Date Resolved Date [...] as of this encounter (statuses as of 10/19/2021) Immunizations Name Administration Dates Next Due COVID-19 [...] Telephone Encounter - Migue Whiteside DO - 10/19/2021 12:06 PM EST Signed Prescriptions: Disp Refills traMADol HCl 50 MG Oral Tablet (Ultram) 90 Tab*0 Sig: Take 1 Tablet by mouth every 8 hours as needed for Pain, Severe. Authorizing Provider: MIGUE WHITESIDE clonazePAM 0.5 MG Oral Tablet (KlonoPIN) 60 Tab*0 Sig: Take 1 Tablet by mouth 2 times a day. Authorizing Provider: MIGUE WHITESIDE * Telephone Encounter - BREE Khoury ASSIST - 10/19/2021 8:03 AM EST Pending Prescriptions: Disp Refills traMADol HCl 50 MG Oral Tablet (Ultram) 90 Tab*0 Sig: Take 1 Tablet by mouth every 8 hours as needed for Pain, Severe. clonazePAM 0.5 MG Oral Tablet (KlonoPIN) 60 Tab*0 Sig: Take 1 Tablet by mouth 2 times a day. documented in this encounter Plan of Treatment Upcoming Encounters Date Type Specialty Care Team Description 10/20/2021 [facility] Visit [facility] Vera Capellan, RN [address] [facility] [place] [address] 11/12/2021 Home Visit Family Medicine Magaly Morales, [facility] [employer] [address] [place] [address] 01/21/2022 Office Visit Family Medicine Migue Whiteside DO [address] [place] [address] 01/21/2022 Office Visit Pharmacy [facility] [place] [address] [place] [address] 02/18/2022 Office Visit Pulmonary Nikita Sanchez MD [address] [place] [id number] 04/05/2022 Office Visit Cardiology Marjorie Powell PA-C [address] [place] [address] Scheduled Procedures Name Priority Associated Diagnoses Date/Ti [...] 07/28/2021 07/28/2020, 06/12/2018 CKD GFR USE SMARTSET 86795 09/19/202103/20, 03/12/2021, 12/25/2020, Additional history exists BREAST CANCER SCREENING DISCUSSION YEARLY AGES 40-75 10/01/2021 10/01/2020, 07/10/2019, 06/23/2018, Additional history exists DIABETES-FOOT EXAM 01/14/2022 01/14/2021, 0 11/07/2019, 01/01/2019, Additional history exists CKD PHOS USE SMARTSET 31191 03/12/202202/24, 11/17/2020, 12/24/2019, Additional history exists CKD HGB USE SMARTSET 78662 03/20/202203/20, 03/20/2021, 03/12/2021, Additional history exists DIABETES-EYE [...] encounter Visit Diagnoses Diagnosis Chronic pain syndrome Anxiety state Anxiety state, unspecified documented in this encounter Advance Directives Documents on File Type Date Recorded Patient Surgical Specialist Expl anation Advanced Directive Advanced Directive [...] Camp Other Health Care [place] [employer] Science Technicians Princess Staplesfany Other Health Care Pow er of Science Technicians Care Teams Performance Engineer Relationship Specialty Start Date End Date Migue Whiteside DO [address] [place] [address] PCP - General Family Medicine 05/01/18 documented as of this encounter
--- OUTSIDE RECORDS SUMMARY | 2023-06-01 04:49 | External Medical Summary | Summary of Care ---
Author Name Unknown Organization [place] [address] Care Team Providers Care Administrator Pesticide Name Role Phone Migue Whiteside DO Primary Care Provider Reason for Visit * Reason Onset Date Comments Medication Refill 11/03/2021 Encounter Details Date Type Department Care Team Description 11/03/2021 Refill [facility] [address] [place] [address] Migue Whiteside DO [address] [place] [address] Chronic diastolic congestive heart failure (HCC) Allergies [...] 0 04/08/2020 Active Blood Glucose Monitoring Suppl ([employer] ULTRA 2) w/Device KIT Use to test [...] of 7.0%-8.0% ([facility]) Inject 60 Units under the skin daily. 45 mL 3 12/18/2020 Active Meclizine HCl 12.5 MG Oral Tablet (Antivert)Indicatio ns:Vertigo Take 1 Tab by mouth 3 times a day as needed for Dizziness. 30 Tab 1 12/29/2020 Active Colchicine 0.6 MG Oral TabletIndications:L eukocytoclastic vasculitis (HCC) Take 1/2 tab daily 45 Tab 1 02/09/2021 Active Additional Information Patient not taking. Reported on 09/26/2021 Nortriptyline HCl 50 MG Oral Capsule (Pamelor)Indication [...] > 150. 121 mL 3 03/20/2021 Active Levothyroxine Sodium 200 MCG Oral Tablet [...] before bedtime. 90 Tablet 0 11/04/2021 Active Furosemide 40 MG Oral Tablet (Lasix)Indications: Chronic diastolic congestive heart failure (HCC) Take 0.5 Tabs by mouth 2 times a day. May take an additional 20 mg 2 to 3 days per week as needed for worsening swelling 135 Tab 3 04/20/2021 2 Discontinu ed(Refill) traZODone HCl 50 MG Oral Tablet (Desyrel) Take 1 Tablet by mouth at bedtime. 90 Tablet 1 08/10/2021 2 Discontinu ed(Refill) DULoxetine HCl 30 MG Oral Capsule Delayed Release Particles (Cymbalta) TAKE ONE CAPSULE BY MOUTH ONE TIME DAILY. TAKE WITH 60 MG CAPSULE FOR A TOTAL OF 90 MG 90 Capsule 1 08/14/2021 2 Discontinu ed(Refill) BD Pen Needle Short U/F 31G X 8 MM (Insulin Pen Needle) use five times daily 200 Each 5 09/09/2021 2 Discontinu ed(Refill) OneTouch Ultra Blue In Vitro Strip (Glucose Blood) Check sugars 3-4 times daily, E11.9 400 Strip 3 10/15/2021 2 Discontinu ed(Refill) Hospital, Clinic, or Other [...] 10/14/2014 Overview: ICD-10 update of inactive term [place] filter in place 08/19/2014 History of pulmonary [...] encounter Miscellaneous Notes * Telephone Encounter - Tahmina Parekh [facility] - 11/04/2021 11:56 AM EST Signed Prescriptions: Disp Refills BD Pen Needle Short U/F 31G X 8 MM (Insuli*500 Ea*3 Sig: use five times dailyAuthorizing Provider: MIGUE WHITESIDE User: TAHMINA PAREKH DULoxetine HCl 30 MG Oral Capsule Delayed *90 Cap*0 Sig: TAKE ONE CAPSULE BY MOUTH ONE TIME DAILY. TAKE WITH 60 MG CAPSULE FOR A TOTAL OF 90 MGAuthorizing Provider: MIGUE WHITESIDE User: TAHMINA PAREKH Furosemide 40 MG Oral Tablet (Lasix) 135 Ta*0 Sig: Take by mouth 0.5 Tablets in the morning AND0.5 Tablets before bedtime. May take an additional 20 mg 2 to 3 days per week as needed for worsening swelling.Authorizing Provider: MIGUE WHITESIDE User: TAHMINA PAREKH OneTouch Ultra Blue In Vitro Strip (Glucos*400 St*3 Sig: Check sugars 3-4 times daily, E11.9Authorizing Provider: MIGUE WHITESIDE User: TAHMINA PARKEH traZODone HCl 50 MG Oral Tablet (Desyrel) 90 Tab*0Sig: Take by mouth 1 Tablet before bedtime.Authorizing Provider: MIGUE WHITESIDE User: TAHMINA PAREKH * Telephone Encounter - Tahmina Parekh RPh - 11/04/2021 11:55 AM EST Sent remaining refills to [facility] as requested. Thanks, Tahmina Parekh PharmD Clinical Pharmacist [facility] [phone] 11/04/2021, 11:55 AM * Telephone Encounter - CHALO Figueroa Tech - 11/03/2021 3:02 PM EST Please reroute RX to [facility] [facility] [place] Pending Prescriptions: Disp Refills BD Pen Needle Short U/F 31G X 8 MM (Insul*200 Ea*3 Sig: use five times daily DULoxetine HCl 30 MG Oral Capsule Delayed*90 Cap*0 Sig: TAKE ONE CAPSULE BY MOUTH ONE TIME DAILY. TAKE WITH 60 MG CAPSULE FOR A TOTAL OF 90 MG Furosemide 40 MG Oral Tablet (Lasix) 135 Ta*0 Sig: Take by mouth 0.5 Tablets in the morning AND 0.5 Tablets before bedtime. May take an additional 20 mg 2 to 3 days per week as needed for worsening swelling. OneTouch Ultra Blue In Vitro Strip (Gluco*400 St*2 Sig: Check sugars 3-4 times daily, E11.9 traZODone HCl 50 MG Oral Tablet (Desyrel) 90 Tab*0 Sig: Take by mouth 1 Tablet before bedtime. Last Visit: 09/29/2021 01/21/2022 If no future appointments scheduled, and last appointment is greater than a year ago, please schedule patient for a follow-up appointment Last date the medication was ordered: 09/09/2021,,10/15/2021,08/10/2021 Patient Phone Numbers Labs: Lab Results Component [...] Visit Family Medicine Magaly Morales, [facility] [employer] [address] [place] [address] 11/16/2021 Office Visit Nephrology Erik Lenz MD [address] [place] [address] 12/01/2021 Home Visit [facility] Vera Capellan, RN [address] [place] [address] 01/21/2022 Office Visit Family Medicine Migue Whiteside DO [address] [address] 01/21/2022 Office Visit Pharmacy [facility] [place] [address] [address] 02/18/2022 Office Visit Pulmonary Nikita Sanchez MD [address] [place] [address] 04/05/2022 Office Visit Cardiology Marjorie Powell PA-C [address] [address] Scheduled Procedures Name Priority Associated Diagnoses Date/Ti [...] 07/28/2021 07/28/2020, 06/12/2018 CKD GFR USE SMARTSET 46157 09/19/202103/20, 03/12/2021, 12/25/2020, Additional history exists BREAST CANCER SCREENING DISCUSSION YEARLY AGES 40-75 10/01/2021 10/01/2020, 07/10/2019, 06/23/2018, Additional history exists DIABETES-FOOT EXAM 01/14/2022 01/14/2021, 0 11/07/2019, 01/01/2019, Additional history exists CKD PHOS USE SMARTSET 98236 03/12/202202/24, 11/17/2020, 12/24/2019, Additional history exists CKD HGB USE SMARTSET 38182 03/20/202203/20, 03/20/2021, 03/12/2021, Additional history exists DIABETES-EYE [...] on File Type Date Recorded Patient Registered Nurse Maternity Expl anation Advanced Directive Advanced Directive Advanced [...] Camp Other Health Care [place] r of Training Development Manager Princess Staplesfany Other Health Care Pow er of Training Development Manager Care Teams Administrator Pesticide Relationship Specialty Start Date End Date Migue Whiteside DO [address] [address] PCP - General Family Medicine 05/01/18 documented as of this encounter
--- OUTSIDE RECORDS SUMMARY | 2023-06-01 04:49 | External Medical Summary | Summary of Care ---
Author Name Unknown Organization [facility] Address [place] [address] Care Team Providers Care Bilingual Medical Receptionist Name Role Phone Kevin Whiteside DO Primary Care Provider Reason for Visit * Reason Onset Date Comments [facility]: Maintenance 10/21/2021 Encounter Details Date Type Department Care Team Description 10/21/2021 Scheduled Telephone [facility], [facility] [address] [place] [address] Coordinator, [facility] [address] [place] [address] Allergies Active Allergy Reactions Severity Noted Date Comments Codeine 07/08/2014 hallucination Pollen 05/18/2019 Heparin 09/04/2009 Heparin Induced Thrombocytopenia Hydrocodone Neuro complications (Please comment) 07/28/2020 Empagliflozin Other (Please comment) Medium 05/17/2018 3 yeast infections in 6 weeks after starting Morphine And Related 09/16/1997 Hallucinations Tetanus Toxoid Other (Please comment) 06/15/2011 Passed out documented as of this encounter (statuses as of 10/21/2021) Medications Medication Sig Dispensed Refills Start Date [...] 90 Cap 3 12/18/2019 Active DIURETIC TITRATION PLANIndications:Bilingual Medical Receptionist 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 1 Each 0 04/08/2020 Active Blood Glucose Monitoring Suppl (Fleet Management [...] 60 MG Oral Capsule Delayed Release Particles (CYMBALTA)Indication s:Fibromyalgia,Moder ate episode of recurrent major depressive disorder (HCC),Primary osteoarthritis of both knees Take 1 Cap by mouth daily. Along with 30 mg capsule to total 90 mg daily. 90 Cap 3 10/02/2020 Active rOPINIRole HCl 2 MG Oral Tablet (Requip)Indications: Restless legs syndrome Take 1 Tab by mouth at bedtime. 90 Tab 3 12/09/2020 Active Acetaminophen 500 MG Oral Tablet (Acetaminophen Extra Strength) Take 500 mg by mouth every 6 hours as needed. 0 Active Tresiba FlexTouch 100 UNIT/ML Subcutaneous Solution Pen-injector (Insulin Degludec)Indications :Type 2 diabetes mellitus with hemoglobin A1c goal of 7.0%-8.0% ([facility]) Inject 60 Units under the skin daily. 45 mL 3 12/18/2020 Active Meclizine HCl 12.5 MG Oral Tablet (Antivert)Indication s:Vertigo Take 1 Tab by mouth 3 times a day as needed for Dizziness. 30 Tab 1 12/29/2020 Active Levothyroxine Sodium 50 MCG Oral Tablet (Levoxyl)Indications :Hyperparathyroidism , secondary renal (HCC) Take 1 Tab by mouth daily. (at least 30 min prior to breakfast or other meds) 30 Tab 11 01/14/2021 Active Colchicine 0.6 MG Oral TabletIndications:Le ukocytoclastic [...] MG Oral Capsule (Pamelor)Indications :Fibromyalgia Take 1 Cap by mouth at bedtime. 90 Cap 1 02/24/2021 Active Nerve Pain Relief Sublingual Tablet SublingualIndication [...] 03/20/2021 Active Furosemide 40 MG Oral Tablet (Lasix)Indications:C hronic diastolic congestive heart failure (HCC) Take 0.5 [...] Active Ondansetron HCl 4 MG Oral Tablet (Zofran)Indications: Vertigo Take 1 Tablet by mouth every 6 [...] a day. 60 Tablet 0 10/19/2021 Active Hospital, Clinic, or Other Facility Administered Medication Ordered Dose Route Frequency Start Date End Date Status Albuterol Sulfate (Proventil) (2.5 MG/3ML) 0.083% inhalation solution 2.5 mgIndications:Chronic hypoxemic respiratory failure (HCC) 2.5 mg NEBULIZER Q4H PRN 10/08/2021 Active documented as of this encounter (statuses as of 10/21/2021) Active Problems Problem Noted Date Hypotension 12/19/2020 [...] as of this encounter (statuses as of 10/21/2021) Resolved Problems Problem Noted Date Resolved Date [...] as of this encounter (statuses as of 10/21/2021) Immunizations Name Administration Dates Next Due COVID-19 [...] Telephone Encounter - Karyn Clarke LPN - 10/21/2021 11:05 AM EST Phone call f/u Weight yesterday 341lb Was advised to double lasix x3 days yesterday Spoke with patient Weight down 4lb today Breathing is better Swelling is improving Denies any needs or concerns today Aware we will be calling again tomorrow documented in this encounter Plan of Treatment Upcoming Encounters Date Type Specialty Care Team Description 10/22/2021 Scheduled Telephone [facility], [address] [place] [phone] 11/12/2021 Home Visit Family Medicine Magaly Morales, [facility] Construction Sales 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 [address] [place] [address] 11/16/2021 Office Visit Nephrology Erik Lenz MD [address] [facility] [place] [address] 12/01/2021 Home Visit [facility] Vera Capellan, RN [address] [facility] [place] [address] 01/21/2022 Office Visit Family Medicine Kevin Whiteside DO [address] [facility] [place] [address] 01/21/2022 Office Visit Pharmacy [facility] [place] [address] [facility] [place] [address] 02/18/2022 Office Visit Pulmonary Nikita Sanchez MD [address] [place] [phone] 04/05/2022 Office Visit Cardiology Marjorie Powell PA-C [address] [facility] [place] [address] Scheduled Procedures Name Priority Associated Diagnoses Date/Ti [...] 07/28/2021 07/28/2020, 06/12/2018 CKD GFR USE SMARTSET 62566 09/19/202103/20, 03/12/2021, 12/25/2020, Additional history exists BREAST CANCER SCREENING DISCUSSION YEARLY AGES 40-75 10/01/2021 10/01/2020, 07/10/2019, 06/23/2018, Additional history exists DIABETES-FOOT EXAM 01/14/2022 01/14/2021, 0 11/07/2019, 01/01/2019, Additional history exists CKD PHOS USE SMARTSET 71360 03/12/202202/24, 11/17/2020, 12/24/2019, Additional history exists CKD HGB USE SMARTSET 67051 03/20/202203/20, 03/20/2021, 03/12/2021, Additional history exists DIABETES-EYE [...] Documents on File Type Date Recorded Patient Gas Substation Operator Expl anation Advanced Directive Advanced Directive [...] Camp Other Health Care [place] r of Network Contractor Princess Other Health Care Pow er of Network Contractor Care Teams Bilingual Medical Receptionist Relationship Specialty Start Date End Date Kevin Whiteside DO [address] [address] PCP - General Family Medicine 05/01/18 documented as of this encounter
--- OUTSIDE RECORDS SUMMARY | 2023-06-01 04:49 | External Medical Summary | Summary of Care ---
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, NYHA class 1 and CKD stage 3 (HCC) Allergies Active Allergy Reactions Severity Noted Date Comments Codeine 07/08/2014 hallucination Pollen 05/18/2019 Heparin 09/04/2009 Heparin Induced Thrombocytopenia Hydrocodone Neuro complications (Please comment) 07/28/2020 Empagliflozin Other (Please comment) Medium 05/17/2018 3 yeast infections in 6 weeks after starting Morphine And Related 09/16/1997 Hallucinations Tetanus Toxoid Other (Please comment) 06/15/2011 Passed out documented as of this encounter (statuses as of 10/20/2021) Medications Medication Sig Dispensed Refills Start Date [...] 90 Cap 3 12/18/2019 Active DIURETIC TITRATION PLANIndications: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 1 Each 0 04/08/2020 Active Blood Glucose Monitoring Suppl (Health Data Minder ULTRA 2) w/Device KIT Use to test [...] of 7.0%-8.0% ([facility]) Inject 60 Units under the skin daily. [...] as of this encounter (statuses as of 10/20/2021) Active Problems Problem Noted Date Hypotension 12/19/2020 [...] 10/14/2014 Overview: ICD-10 update of inactive term Blodgett filter in place 08/19/2014 History of pulmonary embolus (PE) 2013 Statin intolerance 07/16/2014 HTN, goal below 130/80 02/22/2014 Venous insufficiency 02/07/2013 ELISSA (obstructive sleep apnea) 09/16/2011 Overview: CPAP 11 cwp Mild, AHI 11.3 but with significant nocturnal hypoxemia Dicks Postsurgical hypothyroidism 06/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 documented as of this encounter (statuses as of 10/20/2021) Resolved Problems Problem Noted Date Resolved Date [...] as of this encounter (statuses as of 10/20/2021) Immunizations Name Administration Dates Next Due COVID-19 mRNA, LNP-s, No Pre serve, 2-Dose Series ([employer]) 12/29/2020,12/18/2020 Pneumococcal Polysaccharide PPV23 (Pneumovax) 08/22/2009,06/15/2006 Seasonal [...] Sign Reading Time Taken Comments Blood Pressure 104/62 10/20/2021 10:20 AM EST Pulse 84 10/20/2021 10:20 AM EST Temperature 36.2 C (97.1 F) 10/20/2021 1 0:20 AM EST Respiratory Rate 18 10/20/2021 10:2 0 AM EST Oxygen Saturation 95% 10/20/2021 10: 20 AM EST o2 on at 3 l/min via nc Inhaled Oxygen Concentration - - Weight - - Height - - Body Mass Index - - documented in this encounter Progress Notes * Vera Capellan RN - 10/20/2021 7:18 AM EST [facility] [employer] Visit Date: 10/20/2021 Time: 10:19 AM Name: Stephanie Camp : 1955 Current Concerns: Pt seen for return RNCM visit Recently saw PCP and cardio Wt was 336 lbs at office 2 weeks ago Today's wt is 341 lbs She started DTP of extra Lasix to total 40mg today and will take tomorrow, if no improvement will take a 3rd day She feels more abdominal bloating and tightness in BLE Pt reports she is not taking the magnesium - reports it causes constipation and severe abdominal pains - she has even cut the dose down but cannot handle the 200mg either She went to ED a week ago d/t abdominal pain and was given dose of Fentanyl with improvement - no acute finding on x-rays, CT, labs She stopped taking Magnesium a few days later, felt that is was causing the pains as she started toget pains again She states she is feeling better and bowel movements are becoming more soft Physical Exam: BP 104/62 | Pulse 84 | Temp 36.2 C (97.1 F) | Resp 18 | LMP 03/11/2003 | SpO2 95% Comment: o2 on at 3 l/min via nc Pain 0 Physical Exam Constitutional: Appearance: She is obese. HENT: Nose: Nose normal. Cardiovascular: Rate and Rhythm: Normal rate and regular rhythm. Pulses: Normal pulses. Heart sounds: Normal heart sounds. Pulmonary: Effort: Pulmonary effort is normal. Breath sounds: Normal breath sounds. Abdominal: General: Bowel sounds are normal. There is distension. Palpations: Abdomen is soft. Musculoskeletal: Right lower leg: Edema (+1) present. Left lower leg: Edema (+1) present. Skin: General: Skin is warm and dry. Neurological: Mental Status: She is alert and oriented to person, place, and time. Problems/Symptoms: Review of Systems Constitutional: Positive for fatigue. HENT: Positive for sinus pressure (chronic). Eyes: Negative. Respiratory: Positive for cough (white mucus) and shortness of breath (AVENDAÑO - at baseline). Cardiovascular: Positive for leg swelling. Gastrointestinal: Positive for abdominal distention. Endocrine: Negative. Genitourinary: Negative. Musculoskeletal: Positive for arthralgias, back pain and gait problem. Skin: Negative. Medication Reconciliation: (See medication list) Does patient take medications as ordered: Yes Patient Well Being: PHQ2/9: No questionnaires available. No change in living situation Denies falls Wears PERS Advanced Care Planning: POLST. Patient's Goals of Care: 1. Get stronger 2. Walk better 3. Stay out of hospital Reinforcement/Education: Educated on home safety: Create a [...] as advised Wear PERS at all times TE sent to PCP reporting that pt is not taking her Magnesium at all now Home Interventions Provided: Home Intervention: Other; Evaluation Reinforced current Plan of Care, including self-management and medication regimen Patient's 'Red Flags': 1. Increased SOB 2. Increased edema/abd bloating 3. Fall w/ injury Patient Needs to Remember: Call [facility] at with any new or worsening health concerns or problems, red flag symptoms. Referrals Needed: Other none Follow Up: Patient encouraged to call the intake phone number for all urgent but not emergent issues. Is the patient new to [facility] within the last 30 days? No, Assess appropriateness for upcoming telehealth visits. Cancel telehealth visits & schedule home visit with care customer care team coach(s)as indicated. Provider is in agreement with Plan of Care: Yes Scheduled to follow up with patient in 3 weeks with LES and 3 weeks after with CORI. Vera Capellan RN 10/20/2021 10:19 AM documented in this encounter Plan of Treatment Upcoming Encounters Date Type Specialty Care Team Description 10/21/2021 Scheduled Telephone [facility], [place] Cisneros [address] [address] 10/22/2021 Scheduled Telephone [facility], [facility], [facility] [address] [address] 11/12/2021 Home Visit Family Medicine Magaly Morales, Community Health Coroner/Medical Examiner [address] [place] [address] 12/01/2021 Home Visit [facility] Vera Capellan RN [address] [place] [address] 01/21/2022 Office Visit Family Medicine Kevin Whiteside DO [address] [address] 01/21/2022 Office Visit Pharmacy [facility] Jeramie [address] [address] 02/18/2022 Office Visit Pulmonary Nikita Sanchez MD [address] [place] [id number] 04/05/2022 Office Visit Cardiology Marjorie Powell PA-C [address] [address] Scheduled Procedures Name Priority Associated Diagnoses Date/Ti [...] 07/28/2021 07/28/2020, 06/12/2018 CKD GFR USE SMARTSET 62670 09/19/202103/20, 03/12/2021, 12/25/2020, Additional history exists BREAST CANCER SCREENING DISCUSSION YEARLY AGES 40-75 10/01/2021 10/01/2020, 07/10/2019, 06/23/2018, Additional history exists DIABETES-FOOT EXAM 01/14/2022 01/14/2021, 0 11/07/2019, 01/01/2019, Additional history exists CKD PHOS USE SMARTSET 27366 03/12/202202/24, 11/17/2020, 12/24/2019, Additional history exists CKD HGB USE SMARTSET 15727 03/20/202203/20, 03/20/2021, 03/12/2021, Additional history exists DIABETES-EYE [...] class 1 and CKD stage 3 (HCC) documented in this encounter Advance Directives Documents on File Type Date Recorded 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
--- OUTSIDE RECORDS SUMMARY | 2023-06-01 04:49 | External Medical Summary | Summary of Care ---
Author Name Unknown Organization [place] [address] Care Team Providers Care Front Desk Receptionist Name Role Phone Kevin Whiteside DO Primary Care Provider Reason for Referral * Evaluate & Treat - Unlimited Visits (Within 10 days (routine)) - Pending Review Specialty Diagnoses / Procedures Referred By Contsandie t Referred To Contact Pulmonary Diseases / Pulmonary Diagnoses Chronic hypoxemic respiratory failure (HCC) Celsa Tafoya CRNP [address] [place] [id number] Referral ID Status Reason Start Date Expiration Date Visits Requested Visits Authorized [id number] Pending Review Specialty Services Required 10/08/2021 1 1 Question Answer Referral Priority Within 10 days (routine) Primary Reason for Referral? Other Comments Chronic hypoxemic respiratory failure, obesity - on CPAP Hx of pneumonia Possible ILD Extensive hospitalization in 2008 with PNA requiring tracheostomy, PE Reason for Visit * Reason Comments Follow Up Sleep Apnea Encounter Details Date Type Department Care Team Description 10/08/2021 Office Visit Sleep [facility] [address] [id number] Celsa Tafoya CRNP [address] [id number] ELISSA on CPAP*; Chronic hypoxemic respiratory failure (HCC) Allergies Active [...] as of this encounter (statuses as of 10/16/2021) Medications Medication Sig Dispensed Refills Start Date [...] 0 04/08/2020 Active Blood Glucose Monitoring Suppl (Pathogenetix ULTRA 2) w/Device KIT Use to test [...] 7.0%-8.0% ([facility]) Inject 60 Units under the skin daily. 45 mL 3 12/18/2020 Active Meclizine HCl 12.5 MG Oral Tablet (Antivert)Indicatio ns:Vertigo Take 1 Tab by mouth 3 times a day as needed for Dizziness. 30 Tab 1 12/29/2020 Active Levothyroxine Sodium 50 MCG Oral Tablet (Levoxyl)Indication s:Hyperparathyroidi sm, secondary renal (HCC) Take 1 Tab by [...] take unless instructed by provider 0 Active traMADol HCl 50 MG Oral Tablet (Ultram)Indications :Chronic pain syndrome Take 1 Tab by mouth every 8 hours as needed for Pain, Severe. 90 Tab 0 07/20/2021 Active Trulicity 4.5 MG/0.5ML Subcutaneous Solution Pen-injector [...] times daily 200 Each 5 09/09/2021 Active clonazePAM 0.5 MG Oral Tablet (KlonoPIN)Indicatio ns:Anxiety state Take 1 Tablet by mouth 2 times a day. 60 Tablet 0 09/10/2021 Active Potassium Chloride Ayleen ER 10 MEQ [...] mouth 2 times a day. 0 Active Glucose Blood (Sound ClipsTOUCH ULTRA BLUE) STRP Check sugars 3-4 times daily, E11.9 400 Strip 3 05/22/2020 2 Discontinu ed(Refill) Hospital, Clinic, or Other Facility Administered Medication Ordered Dose Route Frequency Start Date End Date Status Albuterol Sulfate (Proventil) (2.5 MG/3ML) 0.083% inhalation solution 2.5 mgIndications:Chronic hypoxemic respiratory failure (HCC) 2.5 mg NEBULIZER Q4H PRN 10/08/2021 Active documented as of this encounter (statuses as of 10/16/2021) Active Problems Problem Noted Date Hypotension 12/19/2020 [...] 10/14/2014 Overview: ICD-10 update of inactive term Letcher filter in place 08/19/2014 History of pulmonary embolus (PE) 2013 Statin intolerance 07/16/2014 HTN, goal below 130/80 02/22/2014 Venous insufficiency 02/07/2013 ELISSA (obstructive sleep apnea) 09/16/2011 Overview: CPAP 11 cwp Mild, AHI 11.3 but with significant nocturnal hypoxemia Dicks Postsurgical hypothyroidism 06/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 documented as of this encounter (statuses as of 10/16/2021) Resolved Problems Problem Noted Date Resolved Date [...] as of this encounter (statuses as of 10/16/2021) Immunizations Name Administration Dates Next Due COVID-19 mRNA, LNP-s, No Pre serve, 2-Dose Series (Alai) 12/29/2020,12/18/2020 Pneumococcal Polysaccharide PPV23 (Pneumovax) 08/22/2009,06/15/2006 Seasonal [...] Sign Reading Time Taken Comments Blood Pressure 128/74 10/08/2021 4:02 PM EST Pulse 100 10/08/2021 4:02 PM EST Temperature 36.2 C (97.1 F) 10/08/2021 4:02 PM ES T Respiratory Rate 18 10/08/2021 4:02 PM EST Oxygen Saturation 92% 10/08/2021 4:02 PM EST 92 rest 3llpm Inhaled Oxygen Concentration - - Weight 156 kg (344 lb) 10/08/2021 4:02 PM EST Height 162.6 cm (5' 4") 10/08/2021 4:02 PM EST Body Mass Index 59.05 10/08/2021 4:02 PM EST documented in this encounter Progress Notes * TATIANA Negrete - 10/08/2021 4:23 PM EST [facility] Stephanie Camp is a 66 year old female with medical history including chronic diastolic heart failure, pneumonia requiring extended ventilation and trach (2008), pulmonary embolism (2008), chronic hypoxemic respiratory failure, CKD, diabetes, hypertension, GERD, chronic back pain who is seen today for yearly follow-up for ELISSA on CPAP, RLS intolerant to oral iron. Sleep Testing/History: PSG 08/11/11 (BMI 56.2): AHI 11, SpO2 roseanne 73%, <91% 118 mins, oxygen added, PLMI 44/PLMAI 3 Noct ox CPAP/4L 04/13/16: SpO2 roseanne 83%, 3.9 mins <89%, testing 7:35 hrs Interim History: Hospitalized end of August with sepsis, pneumonia, UTI, hypoxia. Discharged on 4 LPM with exertion and 2 LPM at rest. Chest CT report suggesting stable changes. CPAP used nightly with oxygen. Denies tolerance issues related to treatment. Notes ongoing benefit with PAP treatment. Sleep is refreshing, gets tired after 3-4 hours. Will nap with oxygen only vs inbed with CPAP. Denies drowsy driving. RLS controlled with current meds taken prior to bed. Ropinirole 2mg, nortriptyline 50mg, [id number], trazodone 50mg and clonazepam 0.5mg at 9pm. Without, RLS noted around 10-11pm. Compliance Data: Report date: last 30 days ending 10/07/21 % total days used: 83 % days used > 4 hours: 76 Average hours per day used: 8 hours 51 mins Large leak: 26 mins AHI: 0.3 Equipment: [facility] Provider: [place] Device/settin cmH20 with 2 LPM Interface Type: nasal Humidifier: yes Cleaning: yes [place] Sleepiness Scale Question 10/08/2021 4:05 PM EST - Filed by Clementine Still LPN What is the chance you will doze off in the following situation? Sitting and reading Slight chance of dozing Watching TV Slight chance of dozing Sitting inactive in a public place, such as a theater or meeting No chance of dozing As a passenger in a car for an hour without a break No chance of dozing Lying down to rest in the afternoon when circumstances permit Slight chance of dozing When sitting and talking to someone No chance of dozing When sitting quietly after lunch without alcohol No chance of dozing In a car, while stopped for a few minutes in traffic No chance of dozing Score (range: 0 - 24) 3 Review of Systems Constitutional: Positive for fatigue. Negative for chills, diaphoresis and fever. HENT: Positive for congestion and postnasal drip. Respiratory: Positive for cough (minimal) and shortness of breath (without oxygen). Negative for wheezing. Cardiovascular: Negative for chest pain and leg swelling. Gastrointestinal: No VANESSA on meds Musculoskeletal: Positive for arthralgias, back pain, gait problem and myalgias. Neurological: Positive for dizziness and light-headedness. Negative for syncope and headaches. Psychiatric/Behavioral: Negative for sleep disturbance. Reviewed changes in PMH, PSH or family history in the interim of care. Problem List: Patient Active Problem List Diagnosis Code Dyslipidemia E78.5 ELLIE (generalized anxiety disorder) F41.1 Postsurgical hypothyroidism E89.0 ELISSA (obstructive sleep apnea) G47.33 Venous insufficiency I87.2 HTN, goal below 130/80 I10 History of pulmonary embolus (PE) Z86.711 Statin intolerance Z78.[address] Z95.828 Type 2 diabetes mellitus with hemoglobin A1c goal of 7.0%-8.0% ([facility]) E11.9 Fibromyalgia M79.7 Abnormality of gait R26.9 Restless legs syndrome G25.81 Gastroesophageal reflux disease with esophagitis K21.00 Morbid obesity with BMI of 50.0-59.9, adult ([facility]) E66.01, Z68.43 Controlled substance agreement signed Z79.899 Chronic diastolic congestive heart failure ([facility]) I50.32 Mild episode of recurrent major depressive disorder ([facility]) F33.0 Lumbar radiculopathy M54.16 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, NYHA class 1 and CKD stage 3 ([facility]) I13.0, I50.30, N18.30 Hyperparathyroidism, secondary renal ([facility]) N25.81 Vasculitis ([facility]) I77.6 Primary osteoarthritis of left knee M17.12 Spinal stenosis of lumbar region without neurogenic claudication M48.061 Hypotension I95.9 Smoking history 24 yrs x0.75 ppd, quit 1996 Current Medications: Outpatient Medications Marked as Taking for the 10/08/21 encounter (Office Visit) with TATIANA Knapp Medication Sig Cholecalciferol 125 MCG (5000 UT) Oral Capsule Take 1,000 Units by mouth daily. Potassium Chloride Ayleen ER 10 MEQ Oral Tablet Extended Release Take 10 mEq by mouth every otherday. clonazePAM 0.5 MG Oral Tablet (KlonoPIN) Take 1 Tablet by mouth 2 times a day. BD Pen Needle Short U/F 31G X 8 MM (Insulin Pen Needle) use five times daily Cyclobenzaprine HCl 10 MG Oral Tablet (Flexeril) TAKE ONE TABLET BY MOUTH AT BEDTIME NEEDED FOR SPASM Ondansetron HCl 4 MG Oral Tablet (Zofran) Take 1 Tablet by mouth every 6 hours as needed for Nausea. DULoxetine HCl 30 MG Oral Capsule Delayed Release Particles (Cymbalta) TAKE ONE CAPSULE BY MOUTH ONE TIME DAILY. TAKE WITH 60 MG CAPSULE FOR A TOTAL OF 90 MG traZODone HCl 50 MG Oral Tablet (Desyrel) Take 1 Tablet by mouth at bedtime. Trulicity 4.5 MG/0.5ML Subcutaneous Solution Pen-injector (Dulaglutide) Inject 1 pen under the skin weekly traMADol HCl 50 MG Oral Tablet (Ultram) Take 1 Tab by mouth every 8 hours as needed for Pain, Severe. Gabapentin 300 MG Oral Capsule (Neurontin) Take 300 mg by mouth 2 times a day. metOLazone 2.5 MG Oral Tablet (Zaroxolyn) Take 2.5 mg by mouth daily as needed. Do not take unless instructed by provider CPAP every night at bedtime. Levothyroxine Sodium 200 MCG Oral Tablet (Levoxyl) TAKE ONE TABLET BY MOUTH IN THE MORNING AT LEAST 30 MINUTES PRIOR TO BREAKFAST OR OTHER MEDS Furosemide 40 MG Oral Tablet (Lasix) Take 0.5 Tabs by mouth 2 times a day. May take an additional 20 mg 2 to 3 days per week as needed for worsening swelling Nerve Pain Relief Sublingual Tablet Sublingual Place under the tongue. Indications: pt taking Nervive, nerve relief tablets at bedtime NovoLOG FlexPen 100 UNIT/ML Subcutaneous Solution Pen-injector (insulin aspart) Inject 40 unitswith meals + sliding scale 1 units for every 25 units BG > 150. Nortriptyline HCl 50 MG Oral Capsule (Pamelor) Take 1 Cap by mouth at bedtime. Dicyclomine HCl 20 MG Oral Tablet (Bentyl) Take 1 Tab by mouth 4 times a day as needed for Pain, Mild. For abdominal pain Levothyroxine Sodium 50 MCG Oral Tablet (Levoxyl) Take 1 Tab by mouth daily. (at least 30 min prior to breakfast or other meds) Meclizine HCl 12.5 MG Oral Tablet (Antivert) Take 1 Tab by mouth 3 times a day as needed for Dizziness. Tresiba FlexTouch 100 UNIT/ML Subcutaneous Solution Pen-injector (Insulin Degludec) Inject 60 Units under the skin daily. Acetaminophen 500 MG Oral Tablet (Acetaminophen Extra Strength) Take 500 mg by mouth every 6 hours as needed. rOPINIRole HCl 2 MG Oral Tablet (Requip) Take 1 Tab by mouth at bedtime. DULoxetine HCl 60 MG Oral Capsule Delayed Release Particles (CYMBALTA) Take 1 Cap by mouth daily. Along with 30 mg capsule to total 90 mg daily. Magnesium Oxide 400 (241.3 Mg) MG Oral Tablet Take 400 mg by mouth daily. (Patient taking differently: Take 200 mg by mouth daily.) clobetasol propionate (TEMOVATE) 0.05 % cream Apply to rash on the hands and dorsal feet twice daily x 1 week, then as needed for flares. Glucose Blood (Startups BLUE) STRP Check sugars 3-4 times daily, E11.9 Blood Glucose Monitoring Suppl (Sound ClipsTOUCH ULTRA 2) w/Device KIT Use to test BG values DIURETIC TITRATION PLAN If no improvement on day 3, contact heart failure managing provider. ACCU-CHEK SOFTCLIX LANCETS MISC Test blood sugar three or four times daily as directed omeprazole (PRILOSEC) 20 MG CPDR Take 1 Cap by mouth daily. oxygen GAS 2 LPM bled through CPAP 11 cwp during all periods of sleep and 2 LPM via NC with exertion. ONETOUCH DELICA LANCETS 33G MISC Check blood sugars 3-4 times daily docusate sodium (STOOL SOFTENER) 100 MG Capsule Take 100 mg by mouth 2 times a day as needed for Constipation. Physical Exam: BP 128/74 | Pulse 100 | Temp 36.2 C (97.1 F) (Tympanic) | Resp 18 | Ht 1.626 m (5' 4") | Wt (!)156 kg (344 lb) | LMP 03/11/2003 | SpO2 92% Comment: 92 rest 3llpm | BMI 59.05 kg/m | BSA 2.65 m Constitutional: Alert, oriented and in no acute distress Cardio: Regular rate and rhythm. No murmur. +2 LE edema bilaterally. Chest: Normal respiratory effort at rest, equal breath sounds, clear but diminished lower steiner. Neuro: Fluent speech, follows commands without issue Psych: Appropriate mood and affect. Diagnostics: ECHO 09/20/21: Mild left hypertrophy, normal LV systolic function, EF 60-65% without wall motion abnormality, moderate aortic sclerosis without stenosis, mitral valve annular calcification CT Chest 09/20/21 (film not available) - reported as stable findings CT Chest 10/23/19 - no change in scattered subpleural reticular change of lungs (may represent chronic interstitial lung disease), mild mosairc attenuation pattern (nonspecific finding may repressent air trapping and small airways disease), mild peribronchial thickening/bronchiectasis Component Latest Ref Rng & Units 05/06/2020 12/25/2020 03/20/2021 CO2 22 - 32 mmol/L 29 30 25 PFT 09/14/19: Baseline spirometry is normal.Following bronchodilator, there is no significant change. Lung volumes show a low expiratory reserve volume.Total lung capacity is normal and there is no suggestion of air trapping. Uncorrected Diffusion Capacity (DLCO) is normal. Serial flow volume loops are unremarkable.Impression: Normal spirometry without significant response to bronchodilator. Lung volume show low expiratory reserve volume. Uncorrected Diffusion Capacity (DLCO) is normal. While nondiagnostic, this constellation of findings may be seen in patients with unfavorable body mass index adversely affecting breathing. There are no previous pulmonary function tests on file for comparison.This interpretation has been electronically signed: JEREMIAH FRANCO DO 10/06/201906:25:15 PM 08/2019 6 MWT RA - low 85% / 3 MWT 2 LPM - low 89% Assessment & Plan: ELISSA on CPAP (Primary) Mild ELISSA by AHI criteria in 2010 at a BMI 56 with significant hypoxemia corrected on CPAP with oxygen 2 LPM last verified in 2015. Compliant, therapeutic and benefiting with PAP treatment. ABG first thing on waking (ideally) Consider bilevel PAP vs titration with TcCO2 monitoring - at risk for OHS. - NOCTURNAL HOME OXIMETRY (OP): on current settings Chronic hypoxemic respiratory failure (HCC) - DIFFUSION CAPACITY (DLCO) - LUNG VOLUMES (PLETHYSMOGRAPHY) - SPIROMETRY B/A BRONCHODILATOR - Albuterol Sulfate (Proventil) (2.5 MG/3ML) 0.083% inhalation solution 2.5 mg - PULMONARY STRESS TESTING - BLOOD GAS, ARTERIAL; Future; Expected date: 10/08/2021 - PULMONARY REFERRAL OP - NOCTURNAL HOME OXIMETRY (OP) Cautioned regarding multiple JUVENILE OFFICER suppressants taken at bedtime. I spent a total of 40-54 minutes (exact time 50 mins) on the date of service in preparation, delivery, and documentation of the care provided to Stephanie Camp excluding any time spent in the performance of separately billed services. TATIANA Figueredo [facility] documented in this encounter Nursing Notes * Clementine Still LPN - 10/08/2021 4:05 PM EST Pt here for f/u of ELISSA on CPAP, resp failure Interm History/Respiratory Symptoms Cough: denies Hemoptysis: no Sinus Symptoms: stuffy Hospitalizations: no ED Trips: no Triggers: exertion Nocturnal: sleeps with 2 CPAP/BiPAP/O2: cpap 2lpm Flu Vaccine: 2020 Pneumovax: 2009 Prevnar: no COVID 19: 12/18/2020 12/29/2020 MMRC Dyspnea Scale = 4 (I am too breathless to leave the house or I am breathless when dressing) [place] Sleepiness Scale Question 10/08/2021 4:05 PM EST - Filed by Clementine Still LPN What is the chance you will doze off in the following situation? Sitting and reading Slight chance of dozing Watching TV Slight chance of dozing Sitting inactive in a public place, such as a theater or meeting No chance of dozing As a passenger in a car for an hour without a break No chance of dozing Lying down to rest in the afternoon when circumstances permit Slight chance of dozing When sitting and talking to someone No chance of dozing When sitting quietly after lunch without alcohol No chance of dozing In a car, while stopped for a few minutes in traffic No chance of dozing Score (range: 0 - 24) 3 documented in this encounter Plan of Treatment Upcoming Encounters Date Type Specialty Care Team Description 10/20/2021 Home Visit [facility] Vera Capellan RN [address] [id number] 11/12/2021 Home Visit Family Medicine Magaly Morales[facility] [address] [place] [address] 01/21/2022 Office Visit Family Medicine Kevin Whiteside DO [address] [address] 01/21/2022 Office Visit [facility] [address] [address] 02/18/2022 Office Visit Pulmonary Nikita Sanchez MD [address] [place] [address] 04/05/2022 Office Visit Cardiology Marjorie Powell PA-C [address] [facility] [address] [place] [address] Scheduled Orders Name Type Priority Associated Diagnoses Orde r Schedule DIFFUSION CAPACITY (DLCO) Procedures Routine Chronic hypoxemic respiratory failure (HCC) Ordered: 10/08/2021 LUNG VOLUMES (PLETHYSMOGRAPHY) Procedures Routine Chronic hypoxemic respiratory failure (HCC) Ordered: 10/08/2021 SPIROMETRY B/A BRONCHODILATOR Procedures Routine Chronic hypoxemic respiratory failure (HCC) Ordered: 10/08/2021 PULMONARY STRESS TESTING Procedures Routine Chronic hypoxemic respiratory failure (HCC) Ordered: 10/08/2021 BLOOD GAS, ARTERIAL Lab Routine Chronic hypoxemic respiratory failure (HCC) Expected: 10/08/2021 (Approximate), Expires: 10/08/2022 NOCTURNAL HOME OXIMETRY (OP) Procedures Routine Chronic hypoxemic respiratory failure (HCC) ELISSA on CPAP Ordered: 10/16/2021 Scheduled Procedures Name Priority Associated Diagnoses Date/Ti me COLONOSCOPY FLEXIBLE PROXIMAL DIAGNOSTIC Recall Colon cancer screening Scheduled Referrals Name Type Priority Associated Diagnoses Orde r Schedule PULMONARY REFERRAL OP Referral Within 10 days (routine) Chronic hypoxemic respiratory failure (HCC) Ordered: 10/08/2021 Health Maintenance Due Date Last Done Comments [...] 07/28/2021 07/28/2020, 06/12/2018 CKD GFR USE SMARTSET 91679 09/19/202103/20, 03/12/2021, 12/25/2020, Additional history exists BREAST CANCER SCREENING DISCUSSION YEARLY AGES 40-75 10/01/2021 10/01/2020, 07/10/2019, 06/23/2018, Additional history exists DIABETES-FOOT EXAM 01/14/2022 01/14/2021, 0 11/07/2019, 01/01/2019, Additional history exists CKD PHOS USE SMARTSET 60351 03/12/202202/24, 11/17/2020, 12/24/2019, Additional history exists CKD HGB USE SMARTSET 44566 03/20/202203/20, 03/20/2021, 03/12/2021, Additional history exists DIABETES-EYE [...] as of this encounter Visit Diagnoses Diagnosis ELISSA on CPAP- Primary Obstructive sleep apnea (adult) (pediatric) Chronic hypoxemic respiratory failure (HCC) Chronic respiratory failure documented in this encounter Advance Directives Documents on File Type Date Recorded Patient Community Living Instructor Expl anation Advanced Directive Advanced Directive [...] Camp Other Health Care [facility] [place] [facility] Princess Staplesfany Other Health Care [facility] [place] [facility] Care Teams Front Desk Receptionist Relationship Specialty Start Date End Date Kevin Whiteside, DO [address] [address] PCP - General Family Medicine 05/01/18 documented as of this encounter
--- OUTSIDE RECORDS SUMMARY | 2023-06-01 04:49 | External Medical Summary | Summary of Care ---
Author Name Unknown Organization [place] [address] Care Team Providers Care Purchasing Buyer Name Role Phone Kevin Whiteside DO Primary Care Provider Reason for Visit * Reason Onset Date Comments Med Request 11/03/2021 Encounter Details Date Type Department Care Team Description 11/03/2021 Telephone Family Practice [facility] [address] [place] [address] Kevin Whiteside DO [address] [place] [address] Med Request Allergies Active Allergy Reactions Severity Noted Date Comments Codeine 07/08/2014 hallucination Pollen 05/18/2019 Heparin 09/04/2009 Heparin Induced Thrombocytopenia Hydrocodone Neuro complications (Please comment) 07/28/2020 Empagliflozin Other (Please comment) Medium 05/17/2018 3 yeast infections in 6 weeks after starting Morphine And Related 09/16/1997 Hallucinations Tetanus Toxoid Other (Please comment) 06/15/2011 Passed out documented as of this encounter (statuses as of 11/03/2021) Medications Medication Sig Dispensed Refills Start Date [...] 0 04/08/2020 Active Blood Glucose Monitoring Suppl ([employer] ULTRA 2) w/Device KIT Use to test [...] goal of 7.0%-8.0% ([facility]) Inject 60 Units under the skin daily. [...] take unless instructed by provider 0 Active traZODone HCl 50 MG Oral Tablet (Desyrel) Take 1 Tablet by mouth at bedtime. 90 Tablet 1 08/10/2021 Active DULoxetine HCl 30 MG Oral Capsule Delayed Release Particles (Cymbalta) TAKE ONE CAPSULE BY MOUTH ONE TIME DAILY. TAKE WITH 60 MG CAPSULE FOR A TOTAL OF 90 MG 90 Capsule 1 08/14/2021 Active BD Pen Needle Short U/F 31G [...] a day. 60 Tablet 0 10/19/2021 Active Cyclobenzaprine HCl 10 MG Oral Tablet [...] abdominal pain. 450 Tablet 3 11/03/2021 Active Levothyroxine Sodium 50 MCG Oral Tablet (Levoxyl)Indication s:Hyperparathyroidi sm, secondary renal (HCC) Take 1 Tab by mouth daily. (at least 30 min prior to breakfast or other meds) 30 Tab 11 01/14/2021 2 Discontinu ed(Refill) Dicyclomine HCl 20 MG Oral Tablet (Bentyl) Take 1 Tab by mouth 4 times a day as needed for Pain, Mild. For abdominal pain 120 Tab 11 02/17/2021 2 Discontinu ed(Refill) Trulicity 4.5 MG/0.5ML Subcutaneous Solution Pen-injector (Dulaglutide) Inject 1 pen under the skin weekly 2 mL 5 07/28/2021 2 Discontinu ed(Refill) Ondansetron HCl 4 MG Oral Tablet (Zofran)Indications :Vertigo Take 1 Tablet by mouth every 6 hours as needed for Nausea. 30 Tablet 6 08/31/2021 2 Discontinu ed(Refill) Cyclobenzaprine HCl 10 MG Oral Tablet (Flexeril)Indicatio ns:Spinal stenosis of lumbar region without neurogenic claudication,Lumbar radiculopathy TAKE ONE TABLET BY MOUTH AT BEDTIME NEEDED FOR SPASM 30 Tablet 0 09/09/2021 2 Discontinu ed(Refill) Hospital, Clinic, or Other Facility Administered Medication Ordered Dose Route Frequency Start Date End Date Status Albuterol Sulfate (Proventil) (2.5 MG/3ML) 0.083% inhalation solution 2.5 mgIndications:Chronic hypoxemic respiratory failure (HCC) 2.5 mg NEBULIZER Q4H PRN 10/08/2021 Active documented as of this encounter (statuses as of 11/03/2021) Active Problems Problem Noted Date Hypotension 12/19/2020 [...] as of this encounter (statuses as of 11/03/2021) Resolved Problems Problem Noted Date Resolved Date [...] as of this encounter (statuses as of 11/03/2021) Immunizations Name Administration Dates Next Due COVID-19 [...] encounter Miscellaneous Notes * Telephone Encounter - Kevin Whiteside DO - 11/03/2021 4:04 PM EST Signed - just had to change to 90 day supply Appreciate you pending them * Telephone Encounter - ERNESTO Forman - 11/03/2021 3:28 PM EST Orders pended with new pharmacy. * Telephone Encounter - CHALO Figueroa - 11/03/2021 3:13 PM EST Pt called stating she switched to [facility]. Pt would like 90 ds for cyclobenzaprine, zofran, trulicity, levothyroxine 50 MCG, and dicyclomine sent to pharmacy. Please advise. Thanks, Evelyne Flores Lieutenant Firefighter [facility] Ref[facility] 11/03/2021,3:14 PM documented in this encounter Plan of Treatment Upcoming Encounters Date Type Specialty Care Team Description 11/12/2021 Home Visit Family Medicine Magaly Morales, Community Health Manager Facility [address] [place] [address] 11/16/2021 Office Visit Nephrology Erik Lenz MD [address] [facility] [place] [address] 12/01/2021 Home Visit [facility] Vera Capellan, RN [address] [place] [address] 01/21/2022 Office Visit Family Medicine Kevin Whiteside DO [address] [place] [address] 01/21/2022 Office Visit Pharmacy [facility], [facility] [place] [address] [place] [address] 02/18/2022 Office Visit Pulmonary Nikita Sanchez MD [address] [facility] [place] [address] 04/05/2022 Office Visit Cardiology Marjorie Powell, EVIN [address] [place] [place] [address] Scheduled Procedures Name Priority Associated Diagnoses Date/Ti [...] 07/28/2021 07/28/2020, 06/12/2018 CKD GFR USE SMARTSET 68759 09/19/202103/20, 03/12/2021, 12/25/2020, Additional history exists BREAST CANCER SCREENING DISCUSSION YEARLY AGES 40-75 10/01/2021 10/01/2020, 07/10/2019, 06/23/2018, Additional history exists DIABETES-FOOT EXAM 01/14/2022 01/14/2021, 0 11/07/2019, 01/01/2019, Additional history exists CKD PHOS USE SMARTSET 31160 03/12/202202/24, 11/17/2020, 12/24/2019, Additional history exists CKD HGB USE SMARTSET 07153 03/20/202203/20, 03/20/2021, 03/12/2021, Additional history exists DIABETES-EYE [...] renal (HCC) Secondary hyperparathyroidism (of renal origin) Vertigo Dizziness and giddiness documented in this encounter Advance Directives Documents on File Type Date Recorded Patient Page Makeup System Operator Expl anation Advanced Directive Advanced Directive [...] Camp Other Health Care Hayden r of Farm Marketer Princess Staplesfany Other Health Care Pow er of Farm Marketer Care Teams Purchasing Buyer Relationship Specialty Start Date End Date Kevin Whiteside, [address] [place] [address] PCP - General Family Medicine 05/01/18 documented as of this encounter
--- OUTSIDE RECORDS SUMMARY | 2023-06-01 04:49 | External Medical Summary | Summary of Care ---
Author Name Unknown Organization [facility] Address [place] [address] Care Team Providers Care Bonsai Tender Name Role Phone Kevin Whiteside DO Primary Care Provider Reason for Visit * Reason Onset Date Comments [facility]: Maintenance 10/20/2021 Encounter Details Date Type Department Care Team Description 10/20/2021 Telephone [facility], [facility] [address] [facility] [place] [address] Vera Capellan, RN [address] [facility] [place] [address] [facility]: Maintenance Allergies Active Allergy [...] 90 Cap 3 12/18/2019 Active DIURETIC TITRATION PLANIndications:Mill Roll Operator 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 1 Each 0 04/08/2020 Active Blood Glucose Monitoring Suppl ([employer] ULTRA 2) w/Device KIT Use to test [...] of 7.0%-8.0% ([facility]) Inject 60 Units under the skin daily. [...] mRNA, LNP-s, No Pre serve, 2-Dose Series (ONEHOPE) 12/29/2020,12/18/2020 Pneumococcal Polysaccharide PPV23 (Pneumovax) 08/22/2009,06/15/2006 Seasonal [...] Telephone Encounter - Kevin Whiteside DO - 10/20/2021 10:37 AM EST Noted - Magnesium typically does not cause constipation - is actually used as a laxative. Thank youfor letting me know! * Telephone Encounter - Vera Capellan RN - 10/20/2021 10:[address] Whiteside - Just wanted to let you know that pt is not taking her Magnesium for the past five days. She was in ED last week d/t severe abdominal pain and tests and labs were negative for any acute findings. Pt reports she feels it is from her magnesium causing constipation which then causes her abdominal pain. She has decreased Mag to 200mg daily in the past but now is not taking it at all. I just wanted you to be aware. Please advise if you have any recommendations for her. Thanks, Vera documented in this encounter Plan of Treatment Upcoming Encounters Date Type Specialty Care Team Description 10/21/2021 Scheduled Telephone [facility] Geoffrey Cisneros [address] [place] [address] 10/22/2021 Scheduled Telephone [facility] Case Manager, Luis Felipe Geoffrey Cisneros [address] [place] [address] 11/12/2021 Home Visit Family Medicine Magaly Morales, Community Health Oil Driller [address] [place] [address] 12/01/2021 Home Visit [facility] Vera Capellan RN [address] [place] [address] 01/21/2022 Office Visit Family Medicine Kevin Whiteside DO [address] [place] [address] 01/21/2022 [facility] [place] [address] [place] [address] 02/18/2022 Office Visit Pulmonary Nikita Sanchez MD [address] [place] [address] 04/05/2022 Office Visit Cardiology Marjorie Powell PA-C [address] [place] [address] Scheduled Procedures Name Priority Associated Diagnoses Date/Ti [...] 07/28/2021 07/28/2020, 06/12/2018 CKD GFR USE SMARTSET 00279 09/19/202103/20, 03/12/2021, 12/25/2020, Additional history exists BREAST CANCER SCREENING DISCUSSION YEARLY AGES 40-75 10/01/2021 10/01/2020, 07/10/2019, 06/23/2018, Additional history exists DIABETES-FOOT EXAM 01/14/2022 01/14/2021, 0 11/07/2019, 01/01/2019, Additional history exists CKD PHOS USE SMARTSET 47851 03/12/202202/24, 11/17/2020, 12/24/2019, Additional history exists CKD HGB USE SMARTSET 87957 03/20/202203/20, 03/20/2021, 03/12/2021, Additional history exists DIABETES-EYE [...] on File Type Date Recorded Patient Assistant Front Desk Manager Expl anation Advanced Directive Advanced Directive [...] Camp Other Health Care Hayden r of Tile Roofer Princess Allen Other Health Care Pow er of Tile Roofer Care Teams Bonsai Tender Relationship Specialty Start Date End Date Kevin Whiteside DO [address] [facility] [place] [address] PCP - General Family Medicine 05/01/18 documented as of this encounter
--- OUTSIDE RECORDS SUMMARY | 2023-06-01 04:49 | External Medical Summary | Summary of Care ---
Author Name Unknown Organization [facility] Address [place] [address] Care Team Providers Care Accounting Machine Servicer Name Role Phone Kevin Whiteside DO Primary Care Provider Reason for Visit * Reason Onset Date Comments [facility]: Maintenance 10/22/2021 Encounter Details Date Type Department Care Team Description 10/22/2021 Scheduled Telephone [facility], [facility] [address] [place] [address] Coordinator, [facility] [address] [place] [address] Allergies Active Allergy Reactions Severity Noted Date Comments Codeine 07/08/2014 hallucination Pollen 05/18/2019 Heparin 09/04/2009 Heparin Induced Thrombocytopenia Hydrocodone Neuro complications (Please comment) 07/28/2020 Empagliflozin Other (Please comment) Medium 05/17/2018 3 yeast infections in 6 weeks after starting Morphine And Related 09/16/1997 Hallucinations Tetanus Toxoid Other (Please comment) 06/15/2011 Passed out documented as of this encounter (statuses as of 10/22/2021) Medications Medication Sig Dispensed Refills Start Date [...] 90 Cap 3 12/18/2019 Active DIURETIC TITRATION PLANIndications:Automation Qa Lead 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 1 Each 0 04/08/2020 Active Blood Glucose Monitoring Suppl ([employer] ULTRA 2) w/Device KIT Use to test [...] of 7.0%-8.0% ([facility]) Inject 60 Units under the skin [...] as of this encounter (statuses as of 10/22/2021) Active Problems Problem Noted Date Hypotension 12/19/2020 [...] as of this encounter (statuses as of 10/22/2021) Resolved Problems Problem Noted Date Resolved Date [...] as of this encounter (statuses as of 10/22/2021) Immunizations Name Administration Dates Next Due COVID-19 [...] Miscellaneous Notes * Telephone Encounter - Lisandra Thomas LPN - 10/22/2021 12:02 PM EST 48 hour follow up call, s/p starting DTP. No answer. Left message requesting return call. Provided call back number , option 3. documented in this encounter Plan of Treatment Upcoming Encounters Date Type Specialty Care Team Description 11/12/2021 Home Visit Family Medicine Magaly Morales, Community Health Explosive Man [address] [place] [address] 11/16/2021 Office Visit Nephrology Erik Lenz MD [address] [place] [address] 12/01/2021 Home Visit [facility] Vera Capellan, RN [address] [place] [address] 01/21/2022 Office Visit Family Medicine Kevin Whiteside DO [address] [place] [address] 01/21/2022 Office Visit Pharmacy [facility] [place] [address] [place] [address] 02/18/2022 Office Visit Pulmonary [facility] [address] [facility] [facility] [address] 04/05/2022 Office Visit Cardiology Marjorie Powell PA-C [address] [place] [address] Scheduled Procedures Name Priority Associated Diagnoses Date/Ti [...] 07/28/2021 07/28/2020, 06/12/2018 CKD GFR USE SMARTSET 91472 09/19/202103/20, 03/12/2021, 12/25/2020, Additional history exists BREAST CANCER SCREENING DISCUSSION YEARLY AGES 40-75 10/01/2021 10/01/2020, 07/10/2019, 06/23/2018, Additional history exists DIABETES-FOOT EXAM 01/14/2022 01/14/2021, 0 11/07/2019, 01/01/2019, Additional history exists CKD PHOS USE SMARTSET 29897 03/12/202202/24, 11/17/2020, 12/24/2019, Additional history exists CKD HGB USE SMARTSET 89563 03/20/202203/20, 03/20/2021, 03/12/2021, Additional history exists DIABETES-EYE [...] Documents on File Type Date Recorded Patient Chandelier Maker Expl anation Advanced Directive Advanced Directive [...] Camp Other Health Care Hayden r of Refrigerator Car Icer Princess Other Health Care Pow er of Refrigerator Car Icer Care Teams Accounting Machine Servicer Relationship Specialty Start Date End Date Kevin Whiteside [address] [place] [address] PCP - General Family Medicine 05/01/18 documented as of this encounter
--- OUTSIDE RECORDS SUMMARY | 2023-06-01 04:50 | External Medical Summary | Summary of Care ---
Author Name Unknown Organization [facility] Address [place] [address] Care Team Providers Care Worm Sorter Name Role Phone Kevin Whiteside DO Primary Care Provider Reason for Visit * Reason Onset Date Comments [facility]: Maintenance 10/14/2021 Encounter Details Date Type Department Care Team Description 10/14/2021 Telephone [facility], [facility] [address] [facility] [place] [address] [facility], Nurse [facility] [address] [facility] [place] [address] [facility]: Maintenance Allergies Active Allergy Reactions Severity Noted Date Comments Codeine 07/08/2014 hallucination Pollen 05/18/2019 Heparin 09/04/2009 Heparin Induced Thrombocytopenia Hydrocodone Neuro complications (Please comment) 07/28/2020 Empagliflozin Other (Please comment) Medium 05/17/2018 3 yeast infections in 6 weeks after starting Morphine And Related 09/16/1997 Hallucinations Tetanus Toxoid Other (Please comment) 06/15/2011 Passed out documented as of this encounter (statuses as of 10/14/2021) Medications Medication Sig Dispensed Refills Start Date [...] 90 Cap 3 12/18/2019 Active DIURETIC TITRATION PLANIndications:Rug Repairer 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 1 Each 0 04/08/2020 Active Blood Glucose Monitoring Suppl ([employer] ULTRA 2) w/Device KIT Use to test BG values 1 Kit 0 05/20/2020 Active Glucose Blood (Bernard HealthTOUCH ULTRA BLUE) STRP Check sugars 3-4 times daily, E11.9 400 Strip 3 05/22/2020 Active clobetasol propionate (TEMOVATE) 0.05 % creamIndications:Lic [...] ([facility]) Inject 60 Units under the skin daily. [...] ([facility]) Inject 40 units with meals + sliding [...] Tablet (Ultram)Indications: Chronic pain syndrome Take 1 Tab by mouth [...] 09/09/2021 Active clonazePAM 0.5 MG Oral Tablet (KlonoPIN)Indication [...] mouth 2 times a day. 0 Active Hospital, Clinic, or Other Facility Administered Medication Ordered Dose Route Frequency Start Date End Date Status Albuterol Sulfate (Proventil) (2.5 MG/3ML) 0.083% inhalation solution 2.5 mgIndications:Chronic hypoxemic respiratory failure (HCC) 2.5 mg NEBULIZER Q4H PRN 10/08/2021 Active documented as of this encounter (statuses as of 10/14/2021) Active Problems Problem Noted Date Hypotension 12/19/2020 [...] as of this encounter (statuses as of 10/14/2021) Resolved Problems Problem Noted Date Resolved Date [...] as of this encounter (statuses as of 10/14/2021) Immunizations Name Administration Dates Next Due COVID-19 [...] Telephone Encounter - Frances Marcial RN - 10/14/2021 10:08 AM EST Phone call from patient stating she had a urine specimen collected yesterday and is checking to seewhat the results are. Informed patient her urine was normal , no infection. She then stated her blood sugars have been running high, today 386. She did not eat or take any medications yet today. She stated she does take Novolog with a sliding scale with meals, Tresiba daily and Trulicity weeky. I asked her if she would like to speak to [facility] Pharmacist/ [place]. Patient stated no , she goes to the [facility] at [facility] and she will call them now. Frances Marcial RN Recyclable Materials Sorter [facility] documented in this encounter Plan of Treatment Upcoming Encounters Date Type Specialty Care Team Description 10/14/2021 Pharmacy [facility] Pharmacist [facility] [address] [facility] [place] [address] Urinary tract infection without hematuria, site unspecified* 10/16/2021 Office Visit Nephrology Clover Osman PA-C [address] [place] [address] 10/20/2021 Home Visit [facility] Vera Capellan RN [address] [place] [address] 11/12/2021 Home Visit Family Medicine Magaly Morales, Community Health Litigation Attorney [address] [place], [place] [address] 01/21/2022 Office Visit Family Medicine Kevin Whiteside DO [address] [place] [address] 01/21/2022 Office Visit Pharmacy [facility] [place] [address] [place] [address] 02/18/2022 Office Visit Pulmonary Nikita Sanchez MD [address] [place] [address] 04/05/2022 Office Visit Cardiology Marjorie Powell PA-C [address] [place] [address] Scheduled Procedures Name Priority Associated Diagnoses Date/Ti [...] 07/28/2021 07/28/2020, 06/12/2018 CKD GFR USE SMARTSET 06952 09/19/202103/20, 03/12/2021, 12/25/2020, Additional history exists BREAST CANCER SCREENING DISCUSSION YEARLY AGES 40-75 10/01/2021 10/01/2020, 07/10/2019, 06/23/2018, Additional history exists DIABETES-FOOT EXAM 01/14/2022 01/14/2021, 0 11/07/2019, 01/01/2019, Additional history exists CKD PHOS USE SMARTSET 76513 03/12/202202/24, 11/17/2020, 12/24/2019, Additional history exists CKD HGB USE SMARTSET 07732 03/20/202203/20, 03/20/2021, 03/12/2021, Additional history exists DIABETES-EYE [...] Documents on File Type Date Recorded Patient Entry Level Drafter Expl anation Advanced Directive Advanced Directive Advanced [...] er of Overhead Crane Operator Care Teams Worm Sorter Relationship Specialty Start Date End Date Kevin Whiteside DO [address] [facility] [place] [address] PCP - General Family Medicine 05/01/18 documented as of this encounter
--- OUTSIDE RECORDS SUMMARY | 2023-06-01 04:50 | External Medical Summary | Summary of Care ---
Author Name Unknown Organization [facility] [place] [address] Care Team Providers Care Mannequin Mounter Name Role Phone Kevin Whiteside DO Primary Care Provider Reason for Visit * Reason Onset Date Comments [facility]: Maintenance 10/14/2021 Encounter Details Date Type Department Care Team Description 10/14/2021 Telephone [facility], [facility] [address] [facility] [place] [address] [facility], Nurse [facility] [address] [facility] [place] [address] [facility]: Maintenance Allergies Active Allergy [...] 90 Cap 3 12/18/2019 Active DIURETIC TITRATION PLANIndications:Computer Repairer 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 1 Each 0 04/08/2020 Active Blood Glucose Monitoring Suppl (Omn[employer] Services ULTRA 2) w/Device KIT Use to test BG values 1 Kit 0 05/20/2020 Active Glucose Blood (startuplyTOUCH ULTRA BLUE) STRP Check sugars 3-4 times [...] ([facility]) Inject 60 Units under the skin daily. [...] ([facility]) Inject 40 units with meals + sliding [...] encounter Miscellaneous Notes * Telephone Encounter - Ingrid Rene, DIRECTOR DANCE - 10/14/2021 3:15 PM EST Called and spoke to pt to f/u She is aware of urine results. Continues to have pain and pressure in lower abdomen. No frequency, urgency or burning. No s/s fever. No hematuria, cloudy or odor to urine. States her BG was 386 earlier today, has not checked her glucose since. However, states she realized she was using strips and wondered if that could be part of the reason. Pt is asking for a refill on her strips. Pending in other encounter. States she does check her glucose 3-4 times per day before meals. Has been running consistently in the 300-400's. No readings recently below 300 and no readings above 500. Admits she has been eating a lot of fresh fruit lately but no changes in diet otherwise. Confirms she is taking the trulicity 4.5mg /weekly, novolog 40 units with meals plus sliding scale and tresiba 60 units daily. Denies any missed doses of medication. Routed to [facility] pharm in tele msg * Telephone Encounter - Frances Marcial RN [...] if she would like to speak to [facility] Pharmacist/ Gal[place]. Patient stated no , she goes to the Diabetic Clinic at [facility] and she will call them now. Frances Marcial RN Car Repairman [facility] documented in this encounter Plan of Treatment Upcoming Encounters Date Type Specialty Care Team Description 10/14/2021 Pharmacy [facility] [address] [facility] [place] [address] Urinary tract infection without hematuria, site unspecified* 10/16/2021 Office Visit Nephrology Clover Osman PA-C [address] [facility] [place] [address] 10/20/2021 Home Visit [facility] Vera Capellan, RN [address] [place] [address] 11/12/2021 Home Visit Family Medicine Magaly Morales, Community Health Fine Arts Packer [address] [place] [address] 01/21/2022 Office Visit Family Medicine Kevin Whiteside DO [address] [place] [address] 01/21/2022 Office Visit Pharmacy [facility] [place] [address] [place] [address] 02/18/2022 Office Visit Pulmonary Nikita Sanchez MD [address] [place] [address] 04/05/2022 Office Visit Cardiology Marjorie Powell PA-C [address] [place] [address] Scheduled Procedures Name Priority Associated Diagnoses Date/Ti [...] 07/28/2021 07/28/2020, 06/12/2018 CKD GFR USE SMARTSET 01311 09/19/202103/20, 03/12/2021, 12/25/2020, Additional history exists BREAST CANCER SCREENING DISCUSSION YEARLY AGES 40-75 10/01/2021 10/01/2020, 07/10/2019, 06/23/2018, Additional history exists DIABETES-FOOT EXAM 01/14/2022 01/14/2021, 0 11/07/2019, 01/01/2019, Additional history exists CKD PHOS USE SMARTSET 39554 03/12/202202/24, 11/17/2020, 12/24/2019, Additional history exists CKD HGB USE SMARTSET 42154 03/20/202203/20, 03/20/2021, 03/12/2021, Additional history exists DIABETES-EYE [...] on File Type Date Recorded Patient Community Services Officer Expl anation Advanced Directive Advanced Directive [...] Camp Other Health Care Hayden r of [place] Operator Princess Other Health Care Pow er of [place] Operator Care Teams Mannequin Mounter Relationship Specialty Start Date End Date Kevin Whiteside DO [address] [place] [address] PCP - General Family Medicine 05/01/18 documented as of this encounter
--- OUTSIDE RECORDS SUMMARY | 2023-06-01 04:50 | External Medical Summary | Summary of Care ---
Author Name Unknown Organization [place] [address] Care Team Providers Care Mold Changer Name Role Phone Kevin Whiteside DO Primary Care Provider Encounter Details Date Type Department Care Team Description 10/14/2021 Scan Encounter [facility] [address] [place] [address] Kevin Whiteside DO [address] [facility] [place] [address] <No scans attached> Allergies Active Allergy Reactions [...] Cap 3 12/18/2019 Active DIURETIC TITRATION PLANIndications:Computer Systems Technology Instructor 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 1 Each 0 04/08/2020 Active Blood Glucose Monitoring Suppl (FlexEl ULTRA 2) w/Device KIT Use to test [...] [facility]) Inject 60 Units under the skin daily. [...] daily, E11.9 400 Strip 3 10/15/2021 Active Hospital, Clinic, or Other Facility Administered [...] Specialty Care Team Description 10/20/2021 Home Visit [facility] Vera Capellan RN [address] [place] [address] 11/12/2021 Home Visit Family Medicine Magaly Morales, Community Health Lay Out Worker [address] [place] [address] 01/21/2022 Office Visit Family Medicine Kevin Whiteside DO [address] [place] [address] 01/21/2022 Office Visit Pharmacy [facility] [place] [address] [place] [address] 02/18/2022 Office Visit Pulmonary Nikita Sanchez MD [address] [place] [address] 04/05/2022 Office Visit Cardiology [facility] Powell [facility]-C [facility] [place] [address] Scheduled Procedures Name Priority Associated Diagnoses Date/Ti [...] 07/28/2021 07/28/2020, 06/12/2018 CKD GFR USE SMARTSET 40631 09/19/202103/20, 03/12/2021, 12/25/2020, Additional history exists BREAST CANCER SCREENING DISCUSSION YEARLY AGES 40-75 10/01/2021 10/01/2020, 07/10/2019, 06/23/2018, Additional history exists DIABETES-FOOT EXAM 01/14/2022 01/14/2021, 0 11/07/2019, 01/01/2019, Additional history exists CKD PHOS USE SMARTSET 71602 03/12/202202/24, 11/17/2020, 12/24/2019, Additional history exists CKD HGB USE SMARTSET 18246 03/20/202203/20, 03/20/2021, 03/12/2021, Additional history exists DIABETES-EYE [...] Documents on File Type Date Recorded Patient Bank Courier Expl anation Advanced Directive Advanced Directive Advanced [...] Camp Other Health Care Hayden r of Study Manager Princess Allen Other Health Care Pow er of Study Manager Care Teams Mold Changer Relationship Specialty Start Date End Date Kevin Whiteside DO [address] [place] [address] PCP - General Family Medicine 05/01/18 documented as of this encounter
--- OUTSIDE RECORDS SUMMARY | 2023-06-01 04:50 | External Medical Summary | Summary of Care ---
Author Name Unknown Organization [facility] [place] [address] Care Team Providers Care Horse Rider Name Role Phone Kevin Whiteside DO Primary Care Provider Reason for Visit * Reason Onset Date Comments [facility]: Maintenance 10/14/2021 Encounter Details Date Type Department Care Team Description 10/14/2021 Telephone [facility], [facility] [address] [facility] [place] [address] [facility], Nurse [facility] [address] [facility] [place] [address] [facility]: Maintenance Allergies Active Allergy [...] 90 Cap 3 12/18/2019 Active DIURETIC TITRATION PLANIndications:Slumber Room Attendant 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 1 Each 0 04/08/2020 Active Blood Glucose Monitoring Suppl (Akimbo ULTRA 2) w/Device KIT Use to test BG values 1 Kit 0 05/20/2020 Active Glucose Blood (TestQuestTOUCH ULTRA BLUE) STRP Check sugars 3-4 times [...] A1c goal of 7.0%-8.0% ([facility]) Inject 60 Units under the skin daily. [...] A1c goal of 7.0%-8.0% ([facility]) Inject 40 units with meals + sliding [...] Miscellaneous Notes * Telephone Encounter - Rose Avila RPh - 10/14/2021 3:19 PM EST Patient Phone Numbers Left message and sent Budding Biologist message with update to insulin sliding scale: CHANGE: Novolog 40 units plus 1:15 over 150 Rose Avila, Pharm D Clinical Pharmacist 10/14/2021, 3:22 PM * Telephone Encounter - Ingrid Rene LPN - 10/14/2021 3:15 PM EST Called and [...] any missed doses of medication. [facility] in tele msg * Telephone Encounter - Frances Marical RN - 10/14/2021 10:08 AM EST Phone [...] if she would like to speak to [facility] Smitha/ Galdino. Patient stated no , she goes to the Diabetic Clinic at [facility] and she will call them now. Frances Marcial RN Friction Paint Machine Tender [facility] documented in this encounter Plan of Treatment Upcoming Encounters Date Type Specialty Care Team Description 10/14/2021 Pharmacy [facility] PharmacistDanuta [address] [place] [address] Urinary tract infection without hematuria, site unspecified* 10/16/2021 Office Visit Nephrology Clover Osman PA-C [address] [facility] [place] [address] 10/20/2021 Home Visit [facility] Vera Capellan, RN [address] [facility] [place] [address] 11/12/2021 Home Visit Family Medicine Magaly Morales, Community Health Bander [address] [place] [address] 01/21/2022 Office Visit Family Medicine Kevin Whiteside DO [address] [facility] [place] [address] 01/21/2022 Office Visit Pharmacy [facility] [place] [address] [facility] [place] [address] 02/18/2022 Office Visit Pulmonary Nikita Sanchez MD [address] [place] [address] 04/05/2022 Office Visit Cardiology Marjorie Powell PA-C [address] [facility] [place] [address] Scheduled Procedures Name Priority Associated Diagnoses Date/Ti [...] 07/28/2021 07/28/2020, 06/12/2018 CKD GFR USE SMARTSET 22037 09/19/202103/20, 03/12/2021, 12/25/2020, Additional history exists BREAST CANCER SCREENING DISCUSSION YEARLY AGES 40-75 10/01/2021 10/01/2020, 07/10/2019, 06/23/2018, Additional history exists DIABETES-FOOT EXAM 01/14/2022 01/14/2021, 0 11/07/2019, 01/01/2019, Additional history exists CKD PHOS USE SMARTSET 09400 03/12/202202/24, 11/17/2020, 12/24/2019, Additional history exists CKD HGB USE SMARTSET 63750 03/20/202203/20, 03/20/2021, 03/12/2021, Additional history exists DIABETES-EYE [...] Documents on File Type Date Recorded Patient Corporation Officer Expl anation Advanced Directive Advanced Directive [...] Camp Other Health Care Hayden r of Switchboard Wire Worker Helper [phone] (mobile) Princess Allen Other Health Care Pow er of Switchboard Wire Worker Helper Care Teams Horse Rider Relationship Specialty Start Date End Date Kevin Whiteside DO [address] [place] [address] PCP - General Family Medicine 05/01/18 documented as of this encounter
--- OUTSIDE RECORDS SUMMARY | 2023-06-01 04:50 | External Medical Summary | Summary of Care ---
Author Name Unknown Organization [place] [address] Care Team Providers Care Recovery Analyst Name Role Phone Kevin Whiteside DO Primary Care Provider Reason for Visit * Reason Onset Date Comments Appointment 10/09/2021 Encounter Details Date Type Department Care Team Description 10/09/2021 Telephone [facility] [address] [facility] [place] [address] Celsa Tafoya CRNP [address] [facility] [place] [address] Appointment Allergies Active Allergy Reactions Severity Noted Date Comments Codeine 07/08/2014 hallucination Pollen 05/18/2019 Heparin 09/04/2009 Heparin Induced Thrombocytopenia Hydrocodone Neuro complications (Please comment) 07/28/2020 Empagliflozin Other (Please comment) Medium 05/17/2018 3 yeast infections in 6 weeks after starting Morphine And Related 09/16/1997 Hallucinations Tetanus Toxoid Other (Please comment) 06/15/2011 Passed out documented as of this encounter (statuses as of 10/15/2021) Medications Medication Sig Dispensed Refills Start Date [...] 90 Cap 3 12/18/2019 Active DIURETIC TITRATION PLANIndications:Steel Erecting Pusher 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 1 Each 0 04/08/2020 Active Blood Glucose Monitoring Suppl (Mailsuite ULTRA 2) w/Device KIT Use to test [...] A1c goal of 7.0%-8.0% ([facility]) Inject 60 Units under the skin daily. [...] A1c goal of 7.0%-8.0% ([facility]) Inject 40 units with meals + sliding scale 1 units for every 25 units BG > 150. 121 mL 3 03/20/2021 Active Furosemide 40 MG Oral Tablet (Lasix)Indications:C hronic diastolic congestive heart failure ([facility]) Take 0.5 Tabs by mouth 2 times [...] as of this encounter (statuses as of 10/15/2021) Active Problems Problem Noted Date Hypotension 12/19/2020 [...] 10/14/2014 Overview: ICD-10 update of inactive term [place] filter in place 08/19/2014 History of pulmonary embolus (PE) 2013 Statin intolerance 07/16/2014 HTN, goal below 130/80 02/22/2014 Venous insufficiency 02/07/2013 ELISSA (obstructive sleep apnea) 09/16/2011 Overview: CPAP 11 cwp Mild, AHI 11.3 but with significant nocturnal hypoxemia Dicks Postsurgical hypothyroidism 06/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 documented as of this encounter (statuses as of 10/15/2021) Resolved Problems Problem Noted Date Resolved Date [...] as of this encounter (statuses as of 10/15/2021) Immunizations Name Administration Dates Next Due COVID-19 mRNA, LNP-s, No Pre serve, 2-Dose Series (UNX) 12/29/2020,12/18/2020 Pneumococcal Polysaccharide PPV23 (Pneumovax) 08/22/2009,06/15/2006 Seasonal [...] Miscellaneous Notes * Telephone Encounter - ELISSA Allen - 10/09/2021 9:34 AM EST Lmom to scehedule PFT/6 MIN walk, Pulmonary appointment and One year return with Celsa. documented in this encounter Plan of Treatment Upcoming Encounters Date Type Specialty Care Team Description 10/16/2021 Office Visit Nephrology Clover Osman PA-C [address] [place] [address] 10/20/2021 [facility] Visit [facility]an[facility] [place] [id number] 11/12/2021 Home Visit Family Medicine Magaly Morales, Community Health Operative Supervisor [address] [place] [facility] [place] [address] 01/21/2022 Office Visit Family Medicine Kevin Whiteside DO [address] [place] [address] 01/21/2022 Office Visit Pharmacy [facility] [place] [address] [place] [address] 02/18/2022 Office Visit Pulmonary Nikita Sanchez MD [address] [place] [address] 04/05/2022 Office Visit Cardiology Marjorie Powell PA-C [address] [place] [address] Scheduled Procedures Name Priority Associated Diagnoses Date/Ti [...] 07/28/2021 07/28/2020, 06/12/2018 CKD GFR USE SMARTSET 11521 09/19/202103/20, 03/12/2021, 12/25/2020, Additional history exists BREAST CANCER SCREENING DISCUSSION YEARLY AGES 40-75 10/01/2021 10/01/2020, 07/10/2019, 06/23/2018, Additional history exists DIABETES-FOOT EXAM 01/14/2022 01/14/2021, 0 11/07/2019, 01/01/2019, Additional history exists CKD PHOS USE SMARTSET 98842 03/12/202202/24, 11/17/2020, 12/24/2019, Additional history exists CKD HGB USE SMARTSET 29306 03/20/202203/20, 03/20/2021, 03/12/2021, Additional history exists DIABETES-EYE [...] Documents on File Type Date Recorded Patient Horizontal Drill Operator Expl anation Advanced Directive Advanced Directive [...] Other Health Care Hayden r of Business Services Sales Agent Princess Allen Other Health Care Pow er of Business Services Sales Agent Care Teams Recovery Analyst Relationship Specialty Start Date End Date Kevin Whiteside DO [address] [place] [address] PCP - General Family Medicine 05/01/18 documented as of this encounter
--- OUTSIDE RECORDS SUMMARY | 2023-06-01 04:50 | External Medical Summary | Summary of Care ---
Author Name Unknown Organization [place] [address] Care Team Providers Care Assistant Business Manager Name Role Phone Kevin Whiteside DO Primary Care Provider Reason for Visit * Reason Comments eRx-Medication Refill Encounter Details Date Type Department Care Team Description 10/14/[address] [facility] [address] [place] [address] Kevin Whiteside DO [address] [place] [address] Allergies Active Allergy Reactions Severity Noted [...] 90 Cap 3 12/18/2019 Active DIURETIC TITRATION PLANIndications:Help Desk Manager 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 1 Each 0 04/08/2020 Active Blood Glucose Monitoring Suppl (LYFE Kitchen ULTRA 2) w/Device KIT Use to test [...] goal of 7.0%-8.0% ([facility]) Inject 60 Units under the skin [...] Tablet (Lasix)Indications:C hronic diastolic congestive heart failure ([facility]) Take 0.5 Tabs by mouth 2 [...] 10/14/2014 Overview: ICD-10 update of inactive term [place] filter in place 08/19/2014 History of pulmonary [...] encounter Miscellaneous Notes * Telephone Encounter - Enrico Mesa RPh - 10/15/2021 8:08 AM EST Refused Prescriptions: Disp Refills OneTouch Ultra In Vitro Strip (Glucose Blo* 0 Sig: Test blood sugar three or four times daily as directedRefused By: Aditi MESA for Refusal: Duplicate Requ est documented in this encounter Plan of Treatment Upcoming Encounters Date Type Specialty Care Team Description 10/16/2021 Office Visit Nephrology Clover Osman PA-C [address] [place] [address] 10/20/2021 [facility] Capellan[facility] RN [facility] [place] [address] 11/12/2021 Home Visit Family Medicine Magaly Morales, Community Health Duplicator Punch Set Up Operator [address] [place] [address] 01/21/2022 Office Visit Family Medicine Kevin Whiteside DO [address] [place] [address] 01/21/2022 Office Visit Pharmacy [facility] [place] [address] [place] [address] 02/18/2022 Office Visit Pulmonary [facility] [address] [facility] [address] 04/05/2022 Office Visit Cardiology Marjorie Powell PA-C [address] [facility] [place] [address] Scheduled Procedures Name Priority Associated Diagnoses Date/Ti [...] 07/28/2021 07/28/2020, 06/12/2018 CKD GFR USE SMARTSET 15651 09/19/202103/20, 03/12/2021, 12/25/2020, Additional history exists BREAST CANCER SCREENING DISCUSSION YEARLY AGES 40-75 10/01/2021 10/01/2020, 07/10/2019, 06/23/2018, Additional history exists DIABETES-FOOT EXAM 01/14/2022 01/14/2021, 0 11/07/2019, 01/01/2019, Additional history exists CKD PHOS USE SMARTSET 16480 03/12/202202/24, 11/17/2020, 12/24/2019, Additional history exists CKD HGB USE SMARTSET 02122 03/20/202203/20, 03/20/2021, 03/12/2021, Additional history exists DIABETES-EYE [...] Documents on File Type Date Recorded Patient Lithography Contact Worker Expl anation Advanced Directive Advanced Directive [...] Camp Other Health Care Hayden r of Water Jet Operator Princess Allen Other Health Care Pow er of Water Jet Operator Care Teams Assistant Business Manager Relationship Specialty Start Date End Date Kevin Whiteside DO [address] [place] [address] PCP - General Family Medicine 05/01/18 documented as of this encounter
--- OUTSIDE RECORDS SUMMARY | 2023-06-01 04:50 | External Medical Summary | Summary of Care ---
Author Name Unknown Organization [place] [address] Care Team Providers Care Ict Developer Name Role Phone Kevin Whiteside DO Primary Care Provider Reason for Visit * Reason Comments Medication Management Encounter Details Date Type Department Care Team Description 10/14/2021 Pharmacy [facility], [facility] [address] [facility] [place] [address] Pharmacist, [facility] [address] [place] [address] Urinary tract infection without hematuria, site unspecified* Allergies Active Allergy Reactions Severity Noted Date [...] 90 Cap 3 12/18/2019 Active DIURETIC TITRATION PLANIndications:Communications Writer 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 1 Each 0 04/08/2020 Active Blood Glucose Monitoring Suppl (HelpAroundTOUCH ULTRA 2) w/Device KIT Use to test BG values 1 Kit 0 05/20/2020 Active Glucose Blood (ONETOUCH ULTRA BLUE) STRP Check sugars 3-4 times [...] of 7.0%-8.0% ([facility]) Inject 60 Units under the skin [...] of 7.0%-8.0% ([facility]) Inject 40 units with meals + [...] 10/14/2014 Overview: ICD-10 update of inactive term [place] filter in place 08/19/2014 History of pulmonary [...] as of this encounter Progress Notes * Ingrid Rene, SHADE CLASSIFIER - 10/14/2021 3:06 PM EST Called and spoke to pt. She is aware of urine results. Continues [...] any missed doses of medication. Routed to [facility]) in other tele msg * Ingrid Rene LPN - 10/14/2021 2:53 PM EST [place]: see msg from p 3 armament/ordnance ima technician from this AM. 10/14/21 10:18 AM Note Phone call from patient stating she had [...] if she would like to speak to [facility] Pharmacist/ [place]. Patient stated no , she goes to the [facility] and she will call them now. Frances Marcial evp salesTraffic Technician [facility] * Galdino Antonio RPh - 10/14/2021 9:07 AM EST [facility] - Pharmacy UA reviewed and negative. No antibiotic indicated. [facility] Outreach Please contact patient regarding: Clinical Symptom Assessment - UTI. Please also complete a blood glucose review as patient had been reporting elevated BGs. Please follow-up today. Galdino Antonio RPh [facility] 10/14/2021,9:07 AM documented in this encounter Plan of Treatment Upcoming Encounters Date Type Specialty Care Team Description 10/16/2021 Office Visit Nephrology Clover Osman PA-C [address] [facility] [place], [place] [address] 10/20/2021 Home Visit [facility] Vera Capellan, RN [address] [place] [address] 11/12/2021 Home Visit Family Medicine Magaly Morales, Community Health Record Clerk [address] [place] [address] 01/21/2022 Office Visit Family Medicine Kevin Whiteside DO [address] [place] [address] 01/21/2022 Office Visit Pharmacy [facility] [address] [place] [address] 02/18/2022 Office Visit Pulmonary Nikita Sanchez MD [address] [facility] [place] [address] 04/05/2022 Office Visit Cardiology Marjorie Powell, EVIN [address] [place] [address] Scheduled Procedures Name Priority Associated Diagnoses Date/Ti [...] 07/28/2021 07/28/2020, 06/12/2018 CKD GFR USE SMARTSET 08799 09/19/202103/20, 03/12/2021, 12/25/2020, Additional history exists BREAST CANCER SCREENING DISCUSSION YEARLY AGES 40-75 10/01/2021 10/01/2020, 07/10/2019, 06/23/2018, Additional history exists DIABETES-FOOT EXAM 01/14/2022 01/14/2021, 0 11/07/2019, 01/01/2019, Additional history exists CKD PHOS USE SMARTSET 84905 03/12/202202/24, 11/17/2020, 12/24/2019, Additional history exists CKD HGB USE SMARTSET 50111 03/20/202203/20, 03/20/2021, 03/12/2021, Additional history exists DIABETES-EYE [...] of this encounter Visit Diagnoses Diagnosis Urinary tract infection without hematuria, site unspecified- Primary documented in this encounter Advance Directives Documents on File Type Date Recorded Patient Historic Site Administrator Expl anation Advanced Directive Advanced Directive Advanced [...] Camp Other Health Care Hayden r of Hose Maker Princess Allen Other Health Care Pow er of Hose Maker Care Teams Ict Developer Relationship Specialty Start Date End Date Kevin Whiteside DO [address] [place] [address] PCP - General Family Medicine 05/01/18 documented as of this encounter
--- OUTSIDE RECORDS SUMMARY | 2023-06-01 04:50 | External Medical Summary | Summary of Care ---
Author Name Unknown Organization [facility] Address [facility] [place] [address] Care Team Providers Care Dental Chairside Assistant Name Role Phone Migue Whiteside DO Primary Care Provider Reason for Visit * Reason Onset Date Comments Medication Refill 10/14/2021 Encounter Details Date Type Department Care Team Description 10/14/2021 Refill [facility], [facility] [address] [facility] [place] [id number] [facility], Nurse [facility] [address] [place] [address] Allergies Active Allergy Reactions Severity Noted Date [...] 0 04/08/2020 Active Blood Glucose Monitoring Suppl (Parkinsor ULTRA 2) w/Device KIT Use to test [...] 7.0%-8.0% ([facility]) Inject 60 Units under the skin [...] daily, E11.9 400 Strip 3 10/15/2021 Active Glucose Blood (ONETOUCH ULTRA BLUE) STRP [...] 10/14/2014 Overview: ICD-10 update of inactive term [place] filter in place 08/19/2014 History of [...] Telephone Encounter - Migue Whiteside DO - 10/15/2021 7:51 AM EST Signed Prescriptions: Disp Refills OneTouch Ultra Blue In Vitro Strip (Glucos*400 St*3 Sig: Check sugars 3-4 times daily, E11.9 Authorizing Provider: MIGUE WHITESIDE * Telephone Encounter - Ingrid Rene LPN - 10/14/2021 4:16 PM EST Pt needs test strips, order pending. documented in this encounter Plan of Treatment Upcoming Encounters Date Type Specialty Care Team Description 10/16/2021 Office Visit Nephrology Clover Osman PA-C [address] [place] [address] 10/20/2021 Home Visit [facility] Vera Capellan RN [address] [place] [address] 11/12/2021 Home Visit Family Medicine Magaly Morales, Community Health Pantograph Ii Engraver [address] [place] [address] 01/21/2022 Office Visit Family Medicine Migue Whiteside DO [address] [place] [address] 01/21/2022 Office Visit Pharmacy [facility] [place] [address] [place] [address] 02/18/2022 Office Visit Pulmonary Nikita Sanchez MD [address] [place] [address] 04/05/2022 Office Visit Cardiology Marjorie Powell PA-C [address] [address] Scheduled Procedures Name Priority Associated Diagnoses Date/Ti [...] 07/28/2021 07/28/2020, 06/12/2018 CKD GFR USE SMARTSET 05831 09/19/202103/20, 03/12/2021, 12/25/2020, Additional history exists BREAST CANCER SCREENING DISCUSSION YEARLY AGES 40-75 10/01/2021 10/01/2020, 07/10/2019, 06/23/2018, Additional history exists DIABETES-FOOT EXAM 01/14/2022 01/14/2021, 0 11/07/2019, 01/01/2019, Additional history exists CKD PHOS USE SMARTSET 92613 03/12/202202/24, 11/17/2020, 12/24/2019, Additional history exists CKD HGB USE SMARTSET 93639 03/20/202203/20, 03/20/2021, 03/12/2021, Additional history exists DIABETES-EYE [...] Documents on File Type Date Recorded Patient [place] Compressor Operator Adjuster Expl anation Advanced Directive Advanced Directive [...] Camp Other Health Care Hayden r of Co Founder And Ceo Princess Allen Other Health Care Pow er of Co Founder And Ceo Care Teams Dental Chairside Assistant Relationship Specialty Start Date End Date Migue Whiteside DO [address] [place] [address] PCP - General Family Medicine 05/01/18 documented as of this encounter
--- OUTSIDE RECORDS SUMMARY | 2023-06-01 04:51 | External Medical Summary | Summary of Care ---
Author Name Unknown Organization [place] [address] Care Team Providers Care Land Commissioner Name Role Phone Kevin Whiteside DO Primary Care Provider Reason for Visit * Reason Comments Outpatient Testing Encounter Details Date Type Department Care Team Description 10/13/2021 Laboratory Laboratory, [facility] [address] [place] [address] [facility], Laboratory [address] [place] [address] Hyperglycemia Allergies Active Allergy Reactions Severity Noted Date Comments Codeine 07/08/2014 hallucination Pollen 05/18/2019 Heparin 09/04/2009 Heparin Induced Thrombocytopenia Hydrocodone Neuro complications (Please comment) 07/28/2020 Empagliflozin Other (Please comment) Medium 05/17/2018 3 yeast infections in 6 weeks after starting Morphine And Related 09/16/1997 Hallucinations Tetanus Toxoid Other (Please comment) 06/15/2011 Passed out documented as of this encounter (statuses as of 10/13/2021) Medications Medication Sig Dispensed Refills Start Date [...] 90 Cap 3 12/18/2019 Active DIURETIC TITRATION PLANIndications:Textile Converter 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 1 Each 0 04/08/2020 Active Blood Glucose Monitoring Suppl (MoMelan TechnologiesTOUCH ULTRA 2) w/Device KIT Use to test [...] as of this encounter (statuses as of 10/13/2021) Active Problems Problem Noted Date Hypotension 12/19/2020 [...] Overview: ICD-10 update of inactive term [place] filter in place 08/19/2014 History of pulmonary embolus (PE) 2013 Statin intolerance 07/16/2014 HTN, goal below 130/80 02/22/2014 Venous insufficiency 02/07/2013 ELISSA (obstructive sleep apnea) 09/16/2011 Overview: CPAP 11 cwp Mild, AHI 11.3 but with significant nocturnal hypoxemia Dicks Postsurgical hypothyroidism 06/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 documented as of this encounter (statuses as of 10/13/2021) Resolved Problems Problem Noted Date Resolved Date [...] as of this encounter (statuses as of 10/13/2021) Immunizations Name Administration Dates Next Due COVID-19 [...] Date Type Specialty Care Team Description 10/14/2021 Scheduled Telephone [facility] Telecommunicator, [facility] [address] [place] [address] 10/14/2021 Pharmacy [facility] Pharmacist, [facility] [address] [facility] [place] [address] 10/16/2021 Office Visit Nephrology Clover Osman PA-C [address] [place] [address] 10/20/2021 Home Visit [facility] Vera Caplelan RN [address] [place] [address] 11/12/2021 Home Visit Family Medicine Magaly Morales, Community Health Cardiac Exercise Physiologist [address] [place] [address] 01/21/2022 Office Visit Family Medicine Kevin Whiteside DO [address] [place] [address] 01/21/2022 Office Visit Pharmacy [facility] [place] [address] [place] [address] 02/18/2022 Office Visit Pulmonary Nikita Sanchez MD [address] [place] [address] 04/05/2022 Office Visit Cardiology Marjorie Powell PA-C [address] [place] [address] Pending Results Name Type Priority Associated Diagnoses Date /Time URINALYSIS, REFLEX TO CULTURE (NOT FOR NEUTROPENIC PATIENTS) Lab Routine Hyperglycemia 10/13/2021 1:15 PM EST URINALYSIS, REFLEX TO CULTURE (CUP ONLY) Lab Routine Hyperglycemia 10/13/2021 1:15 PM EST URINALYSIS, REFLEX TO CULTURE Lab Routine Hyperglycemia 10/13/2021 1:15 PM EST Scheduled Procedures Name Priority Associated [...] 07/28/2021 07/28/2020, 06/12/2018 CKD GFR USE SMARTSET 64631 09/19/202103/20, 03/12/2021, 12/25/2020, Additional history exists BREAST CANCER SCREENING DISCUSSION YEARLY AGES 40-75 10/01/2021 10/01/2020, 07/10/2019, 06/23/2018, Additional history exists DIABETES-FOOT EXAM 01/14/2022 01/14/2021, 0 11/07/2019, 01/01/2019, Additional history exists CKD PHOS USE SMARTSET 60979 03/12/202202/24, 11/17/2020, 12/24/2019, Additional history exists CKD HGB USE SMARTSET 14541 03/20/202203/20, 03/20/2021, 03/12/2021, Additional history exists DIABETES-EYE [...] as of this encounter Visit Diagnoses Diagnosis Hyperglycemia Other abnormal glucose documented in this encounter Advance Directives Documents on File Type Date Recorded Patient Health Information Coder Expl anation Advanced Directive Advanced Directive Advanced [...] Camp Other Health Care Hay[place] r of Territory Sales 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 Princess Staplesfany Other Health Care Pow er of Territory Sales 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 Care Teams Land Commissioner Relationship Specialty Start Date End Date Kevin Whiteside, [address] [place] [address] PCP - General Family Medicine 05/01/18 documented as of this encounter
--- OUTSIDE RECORDS SUMMARY | 2023-06-01 04:51 | External Medical Summary ---
Author Name Unknown Address Unknown Organization K01:[facility] - [address] [facility] [place] [address] Laboratory Report Ordering Provider Test Date Status MARCOS PETERS 10/13/2021 13:15:20 Final Observation Date Value Abnormality Reference (Units ) Status Color of Urine by Auto 10/13/2021 13:15:20 Colorless Colorless, Light Yellow, Yellow, Dark Yellow Final Clarity, Urine 10/13/2021 13:15:20 Clear Clear Final Glucose [Mass/volume] in Urine by Automated test strip 10/13/2021 13:15:20 Negative Negative (mg/dL) Final Bilirubin.total [Presence] in Urine by Automated test strip 10/13/2021 13:15:20 Negative Negative Final Ketones [Mass/volume] in Urine by Automated test strip 10/13/2021 13:15:20 Negative Negative (mg/dL) Final Specific gravity, Urine 10/13/2021 13:15:20 1.009 1.003-1.030 Final Hemoglobin [Presence] in Urine by Automated test strip 10/13/2021 13:15:20 Negative Negative Final pH, Urine 10/13/2021 13:15:20 6.5 5.0-7.5 (Units) Final Protein [Mass/volume] in Urine by Automated test strip 10/13/2021 13:15:20 Negative Negative (mg/dL) Final Urobilinogen [Mass/volume] in Urine by Automated test strip 10/13/2021 13:15:20 Normal Normal (mg/dL) Final Nitrite [Presence] in Urine by Automated test strip 10/13/2021 13:15:20 Negative Negative Final Leukocyte esterase [Presence] in Urine by Automated test strip 10/13/2021 13:15:20 Negative Negative Final RBC, Urine 10/13/2021 13:15:20 0-2 0-2 (/HPF) Final WBC, Urine 10/13/2021 13:15:20 0-2 0-2 (/HPF) Final Bacteria [#/area] in Urine sediment by Microscopy high power field 10/13/2021 13:15:20 0-25 0-25 (/HPF) Final CULTURE, URINE - MIKAYLA 10/13/2021 13:15:20 Final Performing Location [facility] - [facility] [address]. [facility] [address]
--- OUTSIDE RECORDS SUMMARY | 2023-06-01 04:51 | External Medical Summary | Summary of Care ---
Author Name Unknown Organization [place] [address] Care Team Providers Care Driver Examiner Name Role Phone Kevin Whiteside DO Primary Care Provider Reason for Visit * Reason Comments Medication Management Encounter Details Date Type Department Care Team Description 10/14/2021 Pharmacy [facility] [place], [facility] [address] [facility] [place] [address] Pharmacist, [facility] [address] [facility] [place] [address] Urinary tract infection without hematuria, site unspecified* [...] 90 Cap 3 12/18/2019 Active DIURETIC TITRATION PLANIndications:Paper Machine Backtender 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 1 Each 0 04/08/2020 Active Blood Glucose Monitoring Suppl (VisionnaireTOUCH ULTRA 2) w/Device KIT Use to test [...] goal of 7.0%-8.0% ([facility]) Inject 60 Units under the [...] 10/14/2014 Overview: ICD-10 update of inactive term [place] filter in place 08/19/2014 History of pulmonary [...] of this encounter Progress Notes * Galdino Antonio RPh - 10/14/2021 9:07 AM EST [facility] - Pharmacy UA reviewed and negative. No antibiotic indicated. [facility] Outreach Please contact patient regarding: Clinical Symptom Assessment - UTI. Please also complete a blood glucose review as patient had been reporting elevated BGs. Please follow-up today. Galdino Antonio RPh [facility] 10/14/2021,9:07 AM documented in this encounter Plan of Treatment Upcoming Encounters Date Type Specialty Care Team Description 10/14/2021 Scheduled Telephone [facility] Letter Of Credit Clerk, [place] [address] [place] [address] 10/16/2021 Office Visit Nephrology Clover Osman PA-C [address] [facility] [place] [address] 10/20/2021 Home Visit [facility] Vera Capellan, RN [address] [facility] [place] [address] 11/12/2021 Home Visit Family Medicine Magaly Morales, Community Health Button Clamper [address] [place] [address] 01/21/2022 Office Visit Family Medicine [facility] [address] [facility] [place] [address] 01/21/2022 Office Visit Pharmacy [facility] [place] [address] [facility] [place] [address] 02/18/2022 Office Visit Pulmonary Nikita Sanchez MD [address] [place] [address] 04/05/2022 Office Visit Cardiology Marjorie Powell PA-C [address] [facility] [place] [address] Scheduled Procedures Name Priority Associated Diagnoses Date/Ti [...] 07/28/2021 07/28/2020, 06/12/2018 CKD GFR USE SMARTSET 35199 09/19/202103/20, 03/12/2021, 12/25/2020, Additional history exists BREAST CANCER SCREENING DISCUSSION YEARLY AGES 40-75 10/01/2021 10/01/2020, 07/10/2019, 06/23/2018, Additional history exists DIABETES-FOOT EXAM 01/14/2022 01/14/2021, 0 11/07/2019, 01/01/2019, Additional history exists CKD PHOS USE SMARTSET 71523 03/12/202202/24, 11/17/2020, 12/24/2019, Additional history exists CKD HGB USE SMARTSET 20530 03/20/202203/20, 03/20/2021, 03/12/2021, Additional history exists DIABETES-EYE [...] Documents on File Type Date Recorded Patient Materials Planner/Production Planner Expl anation Advanced Directive Advanced Directive Advanced [...] [place] Other Health Care Hayden r of Biodiesel Division Manager Princess Allen Other Health Care Pow er of Biodiesel Division Manager Care Teams Driver Examiner Relationship Specialty Start Date End Date Kevin Whiteside DO [address] [facility] [place] [address] PCP - General Family Medicine 05/01/18 documented as of this encounter
--- OUTSIDE RECORDS SUMMARY | 2023-06-01 04:51 | External Medical Summary | Summary of Care ---
Author Name Unknown Organization [place] [address] Care Team Providers Care Fuselage Framer Name Role Phone Kevin Whiteside DO Primary Care Provider Reason for Visit * Reason Comments [facility]: Maintenance Encounter Details Date Type Department Care Team Description 10/08/2021 Home Visit Care Coordination [address], [place] [id number] Magaly Morales, Community Health Manager Produce [address] [place] [address] Allergies Active Allergy Reactions Severity Noted Date Comments Codeine 07/08/2014 hallucination Pollen 05/18/2019 Heparin 09/04/2009 Heparin Induced Thrombocytopenia Hydrocodone Neuro complications (Please comment) 07/28/2020 Empagliflozin Other (Please comment) Medium 05/17/2018 3 yeast infections in 6 weeks after starting Morphine And Related 09/16/1997 Hallucinations Tetanus Toxoid Other (Please comment) 06/15/2011 Passed out documented as of this encounter (statuses as of 10/09/2021) Medications Medication Sig Dispensed Refills Start Date [...] 90 Cap 3 12/18/2019 Active DIURETIC TITRATION PLANIndications:Flare Maker 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 1 Each 0 04/08/2020 Active Blood Glucose Monitoring Suppl (HuntForceTOUCH ULTRA 2) w/Device KIT Use to test [...] mouth 2 times a day. 0 Active documented as of this encounter (statuses as of 10/09/2021) Active Problems Problem Noted Date Hypotension 12/19/2020 [...] as of this encounter (statuses as of 10/09/2021) Resolved Problems Problem Noted Date Resolved Date [...] as of this encounter (statuses as of 10/09/2021) Immunizations Name Administration Dates Next Due COVID-19 mRNA, LNP-s, No Pre serve, 2-Dose Series (DishOpinion) 12/29/2020,12/18/2020 Pneumococcal Polysaccharide PPV23 (Pneumovax) 08/22/2009,06/15/2006 Seasonal [...] Sign Reading Time Taken Comments Blood Pressure 138/64 10/08/2021 11:05 AM EST Pulse 86 10/08/2021 11:05 AM EST Temperature 36.5 C (97.7 F) 10/08/2021 11:[address] Respiratory Rate 20 10/08/2021 11:05 AM EST Oxygen Saturation 96% 10/08/2021 11:05 AM EST Inhaled Oxygen Concentration - - Weight - - Height - - Body Mass Index - - documented in this encounter Progress Notes * Magaly Morales, Community Health Manager Produce - 10/08/2021 11:00 AM EST Community Health Manager Produce Visit Date: 10/08/2021 Time: 10:57 AM Name: Stephanie Camp : 1955 Referral Source: reservoir engineering manager Source of Information: Patient Spoken language: guinean Patient can read in Trinidadian: Yes. Embosser Operator needed: No. COVID-19 screening completed: Yes Vitals: Vital signs completed: Yes, vital signs within normal range. BP 138/64 (BP Site: Right Arm, BP Position: Sitting) | Pulse 86 | Temp 36.5 C (97.7 F) | Resp 20 | LMP 03/11/2003 | SpO2 96% Condition Changes: Changes in health or social status since last visit: Using oxgen 3 all the time No falls Denied any SOB Cpap at night Pain in body knee and feet Taking tramadol 336 weight today The patient has new concerns since last visit: No Medications: Medication review completed? No, Reporting taking as ordered Does the patient have barriers to medication adherence? No. Patient reports difficulty paying for medications or might in the future: No. Telehealth: This is a telehealth visit: No. Symptoms Surveys and Evaluations: MAHC10 completed this visit: Yes. Score is 4 or more? Yes, notified Provider/Head Of Global Strategic Partnerships Last flowsheet values for MAHC10: Age 65+: [...] follow up with patient in 6 weeks Lisa Flores Health Manager Produce 10/08/2021 10:57 AM documented in this encounter Plan of Treatment Upcoming Encounters Date Type Specialty Care Team Description 10/20/2021 Home Visit [facility] Vera Capellan RN [address] [facility] [place] [address] 01/21/2022 Office Visit Family Medicine Kevin Whiteside DO [address] [place] [address] 01/21/2022 Office Visit Pharmacy [facility] Jeramie [address] [place] [address] 04/05/2022 Office Visit Cardiology Marjorie Powell PA-C [address] [place] [address] Scheduled Procedures Name Priority Associated Diagnoses Date/Ti me COLONOSCOPY FLEXIBLE PROXIMAL DIAGNOSTIC Recall Colon cancer screening Health Maintenance Due Date Last Done Comments Pneumococcal Vaccine: 65+ Years (2 of 2 - PPSV23) 2020 08/22/2009, 06/15/2006 DIABETES-URINE ALBUMIN/CREATININE EVERY 12 MONTHS 05/24/2020 05/24/2019, 05/01/2018, 03/03/2017, Additional history exists DIABETES-HGBA1C EVERY 6 MONTHS 05/17/2021 11/17/2020, 01/23/2020, 11/07/2019, Additional history exists COVID-19 Vaccine (3 - Booster) 06/30/2021 12/29/2020, 12/18/2020 Depression Screening, Annual for Pts 12 and Over 07/28/2021 07/28/2020, 06/12/2018 CKD GFR USE SMARTSET 44105 09/19/202103/20, 03/12/2021, 12/25/2020, Additional history exists BREAST CANCER SCREENING DISCUSSION YEARLY AGES 40-75 10/01/2021 10/01/2020, 07/10/2019, 06/23/2018, Additional history exists DIABETES-FOOT EXAM 01/14/2022 01/14/2021, 0 11/07/2019, 01/01/2019, Additional history exists CKD PHOS USE SMARTSET 18556 03/12/202202/24, 11/17/2020, 12/24/2019, Additional history exists CKD HGB USE SMARTSET 62491 03/20/202203/20, 03/20/2021, 03/12/2021, Additional history exists DIABETES-EYE [...] Documents on File Type Date Recorded Patient Life Insurance Salesperson Expl anation Advanced Directive Advanced Directive Advanced [...] Other Health Care Hayden r of Farm Butcher Princess Other Health Care Pow er of Farm Butcher Care Teams Fuselage Framer Relationship Specialty Start Date End Date Kevin Whiteside DO [address] [facility] [place] [address] PCP - General Family Medicine 05/01/18 documented as of this encounter"
--- OUTSIDE RECORDS SUMMARY | 2023-06-01 04:51 | External Medical Summary | Summary of Care ---
Author Name Unknown Organization [facility] Address [place] [address] Care Team Providers Care Medical Assembly Name Role Phone Kevin Whiteside DO Primary Care Provider Reason for Visit * Reason Onset Date Comments [facility]: Maintenance 10/14/2021 Encounter Details Date Type Department Care Team Description 10/14/2021 Telephone [facility], [facility] [address] [facility] [place] [address] [facility], Nurse [facility] [address] [facility] [place] [address] [facility]: Maintenance Allergies Active Allergy [...] 90 Cap 3 12/18/2019 Active DIURETIC TITRATION PLANIndications:Ear Flap Binder 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 1 Each 0 04/08/2020 Active Blood Glucose Monitoring Suppl (Orthocone ULTRA 2) w/Device KIT Use to test BG values 1 Kit 0 05/20/2020 Active Glucose Blood (Collections Marketing CenterTOUCH ULTRA BLUE) STRP Check sugars 3-4 times [...] of 7.0%-8.0% ([facility]LY [facility]) Inject 60 Units under the [...] she goes to the Diabetic Clinic at [facility] and she will call them now. Frances Marcial RN Oncology Physician [facility] documented in this encounter Plan of Treatment Upcoming Encounters Date Type Specialty Care Team Description 10/14/2021 Scheduled Telephone [facility] Corn Sheller Operator, [facility] Geoffrey Cisneros [address] [place] [address] 10/14/2021 Pharmacy [facility] Pharmacist, [facility] [address] [place] [address] Urinary tract infection without hematuria, site unspecified* 10/16/2021 Office Visit Nephrology Clover Osman PA-C [address] [place] [address] 10/20/2021 Home Visit [facility] Vera Capellan RN [address] [place] [address] 11/12/2021 Home Visit Family Medicine Magaly Morales, Community Health Audiovisual Equipment Operator [address] [place] [address] 01/21/2022 Office Visit Family Medicine Kevin Whiteside DO [address] [place] [address] 01/21/2022 Office Visit Pharmacy [facility] Jeramie [address] [place] [address] 02/18/2022 Office Visit Pulmonary Nikita Sanchez MD [address] [place] [id number] 04/05/2022 Office Visit Cardiology Marjorie Powell PA-C [address] [place] [address] Scheduled Procedures Name Priority Associated Diagnoses Date/Ti [...] 07/28/2021 07/28/2020, 06/12/2018 CKD GFR USE SMARTSET 01646 09/19/202103/20, 03/12/2021, 12/25/2020, Additional history exists BREAST CANCER SCREENING DISCUSSION YEARLY AGES 40-75 10/01/2021 10/01/2020, 07/10/2019, 06/23/2018, Additional history exists DIABETES-FOOT EXAM 01/14/2022 01/14/2021, 0 11/07/2019, 01/01/2019, Additional history exists CKD PHOS USE SMARTSET 05783 03/12/202202/24, 11/17/2020, 12/24/2019, Additional history exists CKD HGB USE SMARTSET 08250 03/20/202203/20, 03/20/2021, 03/12/2021, Additional history exists DIABETES-EYE [...] Documents on File Type Date Recorded Patient Applications Support Analyst Expl anation Advanced Directive Advanced Directive [...] Other Health Care Hayden r of Clinical Science Liaison Princess Allen Other Health Care Pow er of Clinical Science Liaison Care Teams Medical Assembly Relationship Specialty Start Date End Date Kevin Whiteside DO [address] [place] [address] PCP - General Family Medicine 05/01/18 documented as of this encounter
--- OUTSIDE RECORDS SUMMARY | 2023-06-01 04:51 | External Medical Summary | Summary of Care ---
Author Name Unknown Organization [facility] Address [place] [address] Care Team Providers Care Impregnator Operator Name Role Phone Kevin Whiteside DO Primary Care Provider Reason for Visit * Reason Onset Date Comments [facility]: Maintenance 10/14/2021 Encounter Details Date Type Department Care Team Description 10/14/2021 Scheduled Telephone [facility], [facility] [address] [place] [address] Coordinator, [facility] [address] [place] [address] Allergies Active Allergy Reactions Severity Noted Date [...] 90 Cap 3 12/18/2019 Active DIURETIC TITRATION PLANIndications:Mechanical Drawing Teacher 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 1 Each 0 04/08/2020 Active Blood Glucose Monitoring Suppl (iConnectivity ULTRA 2) w/Device KIT Use to test BG values 1 Kit 0 05/20/2020 Active Glucose Blood (Prexa PharmaceuticalsTOUCH ULTRA BLUE) STRP Check sugars 3-4 times [...] Telephone Encounter - Karyn Clarke LPN - 10/14/2021 12:54 PM EST [facility] reaching out to patient today documented in this encounter Plan of Treatment Upcoming Encounters Date Type Specialty Care Team Description 10/14/2021 Pharmacy [facility] Pharmacist, [facility] [address] [facility] [place] [address] Urinary tract infection without hematuria, site unspecified* 10/16/2021 Office Visit Nephrology Clover Osman PA-C [address] [place] [address] 10/20/2021 Home Visit [facility] Vera Capellan, RN 132 [facility] [place] [address] 11/12/2021 Home Visit Family Medicine Magaly Morales, Community Health Deboning Team Leader [address] [place] [address] 01/21/2022 Office Visit Family Medicine [facility]ide DO [facility] [place] [address] 01/21/2022 [facility] Jer[facility]ie [address] [place] [address] 02/18/2022 Office Visit Pulmonary Nikita Sanchez MD [address] [place] [address] 04/05/2022 Office Visit Cardiology Marjorie Powell PA-C [address] [facility] [place] [address] Scheduled Procedures Name Priority Associated Diagnoses Date/Ti [...] 07/28/2021 07/28/2020, 06/12/2018 CKD GFR USE SMARTSET 24048 09/19/202103/20, 03/12/2021, 12/25/2020, Additional history exists BREAST CANCER SCREENING DISCUSSION YEARLY AGES 40-75 10/01/2021 10/01/2020, 07/10/2019, 06/23/2018, Additional history exists DIABETES-FOOT EXAM 01/14/2022 01/14/2021, 0 11/07/2019, 01/01/2019, Additional history exists CKD PHOS USE SMARTSET 51982 03/12/202202/24, 11/17/2020, 12/24/2019, Additional history exists CKD HGB USE SMARTSET 89831 03/20/202203/20, 03/20/2021, 03/12/2021, Additional history exists DIABETES-EYE [...] on File Type Date Recorded Patient Personal Counselor Expl anation Advanced Directive Advanced Directive Advanced [...] Camp Other Health Care Hayden r of Executive Sales Manager Princess Allen Other Health Care Pow er of Executive Sales Manager Care Teams Impregnator Operator Relationship Specialty Start Date End Date Kevin Whiteside DO [address] [place] [address] PCP - General Family Medicine 05/01/18 documented as of this encounter
--- OUTSIDE RECORDS SUMMARY | 2023-06-01 04:51 | External Medical Summary | Summary of Care ---
Author Name Unknown Organization [place] [address] Care Team Providers Care Caregivers Homecare Name Role Phone Kevin Whiteside DO Primary Care Provider Reason for Visit * Reason Comments [facility]: Acute Encounter Details Date Type Department Care Team Description 10/13/2021 Home Visit Care Coordination [address] [place] [address] Mira Duong, Community Health Speech And Hearing Clinic Director [address] [place] [address] Allergies Active Allergy Reactions Severity Noted Date [...] 90 Cap 3 12/18/2019 Active DIURETIC TITRATION PLANIndications:Section Hand Helper 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 1 Each 0 04/08/2020 Active Blood Glucose Monitoring Suppl (FanzoTOUCH ULTRA 2) w/Device KIT Use to test [...] 10/14/2014 Overview: ICD-10 update of inactive term [place] filter in place 08/19/2014 History of [...] as of this encounter Progress Notes * Mira Duong Community Health Speech And Hearing Clinic Director - 10/13/2021 1:44 PM EST LES Accute Home visit to bean picker UA and take to the lab. Picked up and took to the [facility]. Electronically signed by Mira Duong Community Health Speech And Hearing Clinic Director at 10/13/2021 1:45 PM EST documented in this encounter Plan of Treatment Upcoming Encounters Date Type Specialty Care Team Description 10/14/2021 Scheduled Telephone [facility] Adoption Social Worker, [facility] [address] [facility] [place] [address] 10/14/2021 Pharmacy [facility] Pharmacist, [facility] [address] [facility] [place] [address] 10/16/2021 Office Visit Nephrology Clover Osman PA-C [address] [facility] [place] [address] 10/20/2021 Home Visit [facility] Vera Capellan, RN [address] [place] [address] 11/12/2021 Home Visit Family Medicine Magaly Morales, Community Health Speech And Hearing Clinic Director [address] [place] [address] 01/21/2022 Office Visit Family Medicine [facility] [address] 01/21/2022 [facility] Visit [facility] [address] 02/18/2022 Office Visit Pulmonary Nikita Sanchez MD [address] [place] [address] 04/05/2022 Office Visit Cardiology Marjorie Powell PA-C [address] [facility] [address] Scheduled Procedures Name Priority Associated Diagnoses Date/Ti [...] 07/28/2021 07/28/2020, 06/12/2018 CKD GFR USE SMARTSET 69427 09/19/202103/20, 03/12/2021, 12/25/2020, Additional history exists BREAST CANCER SCREENING DISCUSSION YEARLY AGES 40-75 10/01/2021 10/01/2020, 07/10/2019, 06/23/2018, Additional history exists DIABETES-FOOT EXAM 01/14/2022 01/14/2021, 0 11/07/2019, 01/01/2019, Additional history exists CKD PHOS USE SMARTSET 51265 03/12/202202/24, 11/17/2020, 12/24/2019, Additional history exists CKD HGB USE SMARTSET 34220 03/20/202203/20, 03/20/2021, 03/12/2021, Additional history exists DIABETES-EYE [...] Documents on File Type Date Recorded Patient Day Care Aide Expl anation Advanced Directive Advanced Directive [...] Camp Other Health Care Hayden r of Land Classifier Princessambar Allen Other Health Care Pow er of Land Classifier Care Teams Caregivers Homecare Relationship Specialty Start Date End Date Kevin Whiteside DO [address] [place] [address] PCP - General Family Medicine 05/01/18 documented as of this encounter
--- OUTSIDE RECORDS SUMMARY | 2023-06-01 04:51 | External Medical Summary | Summary of Care ---
Author Name Unknown Organization [place] [address] Care Team Providers Care Die Sizer Name Role Phone Kevin Whiteside DO Primary Care Provider Reason for Visit * Reason Onset Date Comments [facility]: Maintenance 10/13/2021 Encounter Details Date Type Department Care Team Description 10/13/2021 Telephone [facility], [facility] [address] [facility] [place] [address] [facility], Nurse [facility] [address] [facility] [place] [address] [facility]: Maintenance Allergies Active Allergy [...] 90 Cap 3 12/18/2019 Active DIURETIC TITRATION PLANIndications:Dip Tanker 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 1 Each 0 04/08/2020 Active Blood Glucose Monitoring Suppl (ELIKE ULTRA 2) w/Device KIT Use to test BG values 1 Kit 0 05/20/2020 Active Glucose Blood ([employer]TOUCH ULTRA BLUE) STRP Check sugars 3-4 times [...] of 7.0%-8.0% ([facility]) Inject 60 Units under the [...] Telephone Encounter - Sadia Mcdonald LPN - 10/13/2021 9:35 AM EST Scheduled LES to drop of collection kit and obtain urine sample. Called pt made aware LES will be there between 11-11:30 am. F/u call scheduled for tomorrow to check UA results. * Telephone Encounter - Dain Ireland DO - 10/13/2021 8:56 AM EST Ua with reflex culture ordered. Need to get someone to deliver collection kit. * Telephone Encounter - Sadia Mcdonald LPN - 10/13/2021 8:37 AM EST Call from pt requesting a HV today states she hasn't been feeling well. When asked for symptoms states BG has been running lawrence he last 3 days almost 400 and she has been tired. This morning 389 fasting took 51 units novalog (sliding scale) 1 1/2 hours after BG 358 Pt takes Tresiba at night. States her BG goes high when she has a UTI. Denies any symptoms of UTI states she never has symptoms even with infection. Denies fever On 2 L O2 w/sleep, 3-4 L O2 when up, pox 93% states this is her baseline. HR 93 Denies SOB, -cough, -congestion,- N,V,D Pt does not have urine collection kit at home. Will forward to care team for direction. documented in this encounter Plan of Treatment Upcoming Encounters Date Type Specialty Care Team Description 10/13/2021 Home Visit Family Medicine Mira Duong, Community Health Slot Shift Manager [address] [place] [address] 10/14/2021 Scheduled Telephone [facility] Nuclear Weapons Specialist, [facility] [address] [place] [address] 10/14/2021 Pharmacy [facility] Pharmacist, [facility] [address] [facility] [place] [address] 10/16/2021 Office Visit Nephrology Clover Osman PA-C [address] [place] [address] 10/20/2021 Home Visit [facility] Vera Capellan RN [address] [facility] [place] [address] 11/12/2021 Home Visit Family Medicine Magaly Morales, Community Health Slot Shift Manager [address] [place] [address] 01/21/2022 Office Visit Family Medicine Kevin Whiteside DO [address] [place] [address] 01/21/2022 Office Visit Pharmacy [facility] Jeramie [address] [place] [address] 02/18/2022 Office Visit Pulmonary Nikita Sanchez MD [address] [place] [address] 04/05/2022 Office Visit Cardiology Marjorie Powell PA-C [address] [place] [address] Scheduled Orders Name Type Priority Associated Diagnoses Orde r Schedule URINALYSIS, REFLEX TO CULTURE (NOT FOR NEUTROPENIC PATIENTS) Lab Routine Hyperglycemia Expected: 10/13/2021, Expires: 10/13/2022 Scheduled Procedures Name Priority Associated Diagnoses Date/Ti [...] 07/28/2021 07/28/2020, 06/12/2018 CKD GFR USE SMARTSET 55075 09/19/202103/20, 03/12/2021, 12/25/2020, Additional history exists BREAST CANCER SCREENING DISCUSSION YEARLY AGES 40-75 10/01/2021 10/01/2020, 07/10/2019, 06/23/2018, Additional history exists DIABETES-FOOT EXAM 01/14/2022 01/14/2021, 0 11/07/2019, 01/01/2019, Additional history exists CKD PHOS USE SMARTSET 28529 03/12/202202/24, 11/17/2020, 12/24/2019, Additional history exists CKD HGB USE SMARTSET 07195 03/20/202203/20, 03/20/2021, 03/12/2021, Additional history exists DIABETES-EYE [...] as of this encounter Visit Diagnoses Diagnosis Hyperglycemia- Primary Other abnormal glucose documented in this encounter Advance Directives Documents on File Type Date Recorded Patient Sulfide Head Operator Expl anation Advanced Directive Advanced Directive [...] Camp Other Health Care Hayden r of Soft Water Mechanic Princess Allen Other Health Care Pow er of Soft Water Mechanic Care Teams Die Sizer Relationship Specialty Start Date End Date Kevin Whiteside, [address] [place] [address] PCP - General Family Medicine 05/01/18 documented as of this encounter
--- OUTSIDE RECORDS SUMMARY | 2023-06-01 04:51 | External Medical Summary | Summary of Care ---
Author Name Unknown Organization [place] [address] Care Team Providers Care Associate [employer] Name Role Phone Kevin Whiteside DO Primary Care Provider Reason for Visit * Reason Comments Medication Management Encounter Details Date Type Department Care Team Description 10/14/[address] [facility], [facility] [address] [place] [address] Pharmacist, [facility] [address] [place] [address] Urinary tract infection without hematuria, site unspecified* [...] Cap 3 12/18/2019 Active DIURETIC TITRATION PLANIndications:Manager Poker 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 1 Each 0 04/08/2020 Active Blood Glucose Monitoring Suppl (IntellistreamTOUCH ULTRA 2) w/Device KIT Use to test [...] ([facility]) Inject 60 Units under the skin daily. [...] 10/14/2014 Overview: ICD-10 update of inactive term [place] filter in place 08/19/2014 History of pulmonary [...] this encounter Progress Notes * Ingrid Rene, VEGETABLE INSPECTOR - 10/14/2021 2:53 PM EST [place]: see msg from welder gas from this AM. 10/14/21 10:18 AM Note [...] if she would like to speak to [facility] Pharmacist/ Gal[place]. Patient stated no , she goes to the Diabetic Clinic at [facility] and she will call them now. Frances Marcial field underwriterSalesperson Jewelry [facility] * Galdino Antonio RP - 10/14/2021 9:07 AM EST [facility] - Pharmacy UA reviewed and negative. No antibiotic indicated. [facility] Outreach Please contact patient regarding: Clinical Symptom Assessment - UTI. Please also complete a blood glucose review as patient had been reporting elevated BGs. Please follow-up today. Galdino Antonio [facility] 10/14/2021,9:07 AM documented in this encounter Plan of Treatment Upcoming Encounters Date Type Specialty Care Team Description 10/16/2021 Office Visit Nephrology Clover Osman PA-C [address] [place] [address] 10/20/2021 Home Visit [facility] Vera Capellan RN [address] [address] 11/12/2021 Home Visit Family Medicine Magaly Morales, Community Health Game Breeding Farm Manager [address] [place] [address] 01/21/2022 Office Visit Family Medicine Kevin Whiteside DO [address] [address] [address] 01/21/2022 Office Visit Pharmacy [facility] Jeramie [address] [place] [address] 02/18/2022 Office Visit Pulmonary Nikita Sanchez MD [address] [place] [address] 04/05/2022 Office Visit Cardiology Marjorie Powell PA-C [address] [address] Scheduled Procedures Name Priority Associated Diagnoses Date/Ti [...] 07/28/2021 07/28/2020, 06/12/2018 CKD GFR USE SMARTSET 51162 09/19/202103/20, 03/12/2021, 12/25/2020, Additional history exists BREAST CANCER SCREENING DISCUSSION YEARLY AGES 40-75 10/01/2021 10/01/2020, 07/10/2019, 06/23/2018, Additional history exists DIABETES-FOOT EXAM 01/14/2022 01/14/2021, 0 11/07/2019, 01/01/2019, Additional history exists CKD PHOS USE SMARTSET 68517 03/12/202202/24, 11/17/2020, 12/24/2019, Additional history exists CKD HGB USE SMARTSET 31818 03/20/202203/20, 03/20/2021, 03/12/2021, Additional history exists DIABETES-EYE [...] Documents on File Type Date Recorded Patient Border Police Expl anation Advanced Directive Advanced Directive Advanced [...] Camp Other Health Care Hayden r of Paperback Machine Operator Princess Allen Other Health Care Pow er of Paperback Machine Operator Care Teams Associate [employer] Retail Relationship Specialty Start Date End Date Kevin Whiteside DO [address] [address] PCP - General Family Medicine 05/01/18 documented as of this encounter
--- OUTSIDE RECORDS SUMMARY | 2023-06-01 04:52 | External Medical Summary | Summary of Care ---
Author Name Unknown Organization [place] [address] Care Team Providers Care Life Tester [employer] Name Role Phone Kevin Whiteside DO Primary Care Provider Encounter Details Date Type Department Care Team Description 09/25/2021 Scan Encounter [facility] [address] [place] [address] Kevin Whiteside DO [address] [facility] [place] [address] <No scans attached> Allergies Active Allergy Reactions Severity Noted Date Comments Codeine 07/08/2014 hallucination Pollen 05/18/2019 Heparin 09/04/2009 Heparin Induced Thrombocytopenia Hydrocodone Neuro complications (Please comment) 07/28/2020 Empagliflozin Other (Please comment) Medium 05/17/2018 3 yeast infections in 6 weeks after starting Morphine And Related 09/16/1997 Hallucinations Tetanus Toxoid Other (Please comment) 06/15/2011 Passed out documented as of this encounter (statuses as of 09/28/2021) Medications Medication Sig Dispensed Refills Start Date [...] 90 Cap 3 12/18/2019 Active DIURETIC TITRATION PLANIndications:Curriculum Development Coordinator 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 1 Each 0 04/08/2020 Active Blood Glucose Monitoring Suppl (SmartRecruitersUCH ULTRA 2) w/Device KIT Use to test [...] Information Patient not taking. Reported on 09/26/2021 Magnesium Oxide 400 (241.3 Mg) MG Oral [...] ([facility]) Inject 60 Units under the [...] a day. 60 Tablet 0 09/10/2021 Active documented as of this encounter (statuses as of 09/28/2021) Active Problems Problem Noted Date Hypotension 12/19/2020 [...] as of this encounter (statuses as of 09/28/2021) Resolved Problems Problem Noted Date Resolved Date [...] as of this encounter (statuses as of 09/28/2021) Immunizations Name Administration Dates Next Due COVID-19 mRNA, LNP-s, No Pre serve, 2-Dose Series ([place]) 12/29/2020,12/18/2020 Pneumococcal Polysaccharide PPV23 (Pneumovax) 08/22/2009,06/15/2006 Seasonal [...] Encounters Date Type Specialty Care Team Description 09/29/2021 Office Visit Family Medicine Kevin Whiteside DO [address] [address] 10/05/2021 Office Visit Cardiology Rey Woodall MD [address] [address] 10/05/2021 Office Visit Pharmacy [facility] Jeramie [address] [address] 10/08/2021 Home Visit Family Medicine Magaly Morales, Community Health Gaming Dealer [address] [place] [address] 10/08/2021 Office Visit Sleep Disorders Celsa Tafoya CRNP [address] [address] 10/20/2021 Home Visit [facility] Vera Capellan RN [address] [address] [address] 01/21/2022 Office Visit Family Medicine Kevin Whiteside DO [address] [place] [address] [address] Scheduled Procedures Name Priority Associated Diagnoses Date/Ti me COLONOSCOPY FLEXIBLE PROXIMAL DIAGNOSTIC Recall Colon cancer screening Health Maintenance Due Date Last Done Comments Pneumococcal Vaccine: 65+ Years (2 of 2 - PPSV23) 2020 08/22/2009, 06/15/2006 DIABETES-HGBA1C EVERY 6 MONTHS 05/17/2021 11/17/2020, 01/23/2020, 11/07/2019, Additional history exists COVID-19 Vaccine (3 - Booster) 06/30/2021 12/29/2020, 12/18/2020 Depression Screening, Annual for Pts 12 and Over 07/28/2021 07/28/2020, 06/12/2018 CKD GFR USE SMARTSET 49727 09/19/202103/20, 03/12/2021, 12/25/2020, Additional history exists BREAST CANCER SCREENING DISCUSSION YEARLY AGES 40-75 10/01/2021 10/01/2020, 07/10/2019, 06/23/2018, Additional history exists DIABETES-FOOT EXAM 01/14/2022 01/14/2021, 0 11/07/2019, 01/01/2019, Additional history exists CKD PHOS USE SMARTSET 78189 03/12/202202/24, 11/17/2020, 12/24/2019, Additional history exists DIABETES-URINE MICROALBUMIN EVERY 12 MONTHS 03/12/2022 03/12/2021, 03/12/2021, 12/24/2019, Additional history exists CKD HGB USE SMARTSET 50139 03/20/202203/20, 03/20/2021, 03/12/2021, Additional history exists DIABETES-EYE [...] Documents on File Type Date Recorded Patient Test Boring Crew Chief Expl anation Advanced Directive Advanced Directive Advanced [...] Camp Other Health Care Hayden r of Settlement Agent Princess Allen Other Health Care Pow er of Settlement Agent Care Teams Life Tester [employer] Relationship Specialty Start Date End Date Kevin Whiteside DO [address] [address] PCP - General Family Medicine 05/01/18 documented as of this encounter
--- OUTSIDE RECORDS SUMMARY | 2023-06-01 04:52 | External Medical Summary | Summary of Care ---
Author Name Unknown Organization [facility] Address [facility] [place] [address] Care Team Providers Care Yard Switch Operator Name Role Phone Kevin Whiteside DO Primary Care Provider Reason for Visit * Reason Comments Dosage Adjustment In Person (Anticoag Cl inic) Diabetes Follow-Up Encounter Details Date Type Department Care Team Description 10/05/2021 Office Visit Pharmacy, [facility] [address] [facility] [place] [address] [facility] [address] [facility] [place] [address] Type 2 diabetes mellitus with hemoglobin A1c goal of 7.0%-8.0% ([facility])* Allergies Active Allergy Reactions Severity Noted Date Comments Codeine 07/08/2014 hallucination Pollen 05/18/2019 Heparin 09/04/2009 Heparin Induced Thrombocytopenia Hydrocodone Neuro complications (Please comment) 07/28/2020 Empagliflozin Other (Please comment) Medium 05/17/2018 3 yeast infections in 6 weeks after starting Morphine And Related 09/16/1997 Hallucinations Tetanus Toxoid Other (Please comment) 06/15/2011 Passed out documented as of this encounter (statuses as of 10/05/2021) Medications Medication Sig Dispensed Refills Start Date [...] 90 Cap 3 12/18/2019 Active DIURETIC TITRATION PLANIndications:Stitch Wheeler 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 1 Each 0 04/08/2020 Active Blood Glucose Monitoring Suppl (New ScreensUCH ULTRA 2) w/Device KIT Use to test [...] goal of 7.0%-8.0% ([facility]) Inject 60 Units under the skin daily. [...] goal of 7.0%-8.0% ([facility]) Inject 40 units with meals + sliding [...] as of this encounter (statuses as of 10/05/2021) Active Problems Problem Noted Date Hypotension 12/19/2020 [...] 10/14/2014 Overview: ICD-10 update of inactive term [place] filter in place 08/19/2014 History of pulmonary embolus (PE) 2013 Statin intolerance 07/16/2014 HTN, goal below 130/80 02/22/2014 Venous insufficiency 02/07/2013 ELISSA (obstructive sleep apnea) 09/16/2011 Overview: CPAP 11 cwp Mild, AHI 11.3 but with significant nocturnal hypoxemia Dicks Postsurgical hypothyroidism 06/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 documented as of this encounter (statuses as of 10/05/2021) Resolved Problems Problem Noted Date Resolved Date [...] as of this encounter (statuses as of 10/05/2021) Immunizations Name Administration Dates Next Due COVID-19 mRNA, LNP-s, No Pre serve, 2-Dose Series (5 CUPS and some sugar) 12/29/2020,12/18/2020 Pneumococcal Polysaccharide PPV23 (Pneumovax) 08/22/2009,06/15/2006 Seasonal [...] of this encounter Progress Notes * Rose Avila, [facility] - 10/05/2021 9:02 AM EST Medication Therapy Disease Management [facility] - Diabetes Management Progress Note Stephanie Camp, identified by name and date of , is a 66 year old female being seen for diabetes management/education. Patient presents for return diabetic visit. DIABETES: Current diabetic medications: Novolog - 40 units with meals +SS 1:25 >150 Tresiba 60 units HS Increase Trulicity 4.5 mg weekly- Tuesday mornings Medication Injection Site: Abdomen Lifestyle: Diet: unchanged Glucose Review/SMBG: Readings obtained from patient documented BG logbook Pre am Post am Pre Lunch Post Lunch Pre pm Post pm HS 3am 204 226 277 244 307 296 166 236 260 237 223 171 120 233 85 178 137 245 123 148 139 202 162 Average 212 #DIV/0! 191 #DIV/0! 197 #DIV/0! 196 #DIV/0! Hi 296 0 233 0 307 0 277 0 Lo 120 0 148 0 [address]6 0 #DIV/0! 0 197.333 0 194.5 0 Range 176 0 85 0 222 0 154 0 Hypoglycemia: Does your blood sugar go below 70 mg/dL? No Hyperglycemia symptoms present: none Recent Labs Units 11/17/20 1300 01/23/20 1111 11/07/19 1504 HEMOGLOBIN A1C - [facility] % 8.3* 7.3* 8.3* Recent Labs Units 03/20/21 1537 03/12/21 1505 12/25/20 1010 ESTIMATED GLOMERULAR FILTRATION RATE - [facility] mL/min 33.8* 34.1* 39.5* CREATININE - [facility] mg/dL 1.6* 1.6* 1.4* HYPERTENSION: Patient on ACEi/ARB: no, kidney disease BP Readings from Last 3 Encounters: 10/05/21 144/66 09/29/21 136/62 09/26/21 116/60 Blood pressure at goal: yes HYPERLIPIDEMIA: Patient is taking moderate or high intensity statin: No Current regimen: None cannot tolerate Goal statin intensity: high The 10-year ASCVD risk score (Freddy JOHNS Jr., et al., 2013) is: 21.3% Values used to calculate the score: Age: 66 years Sex: Female Is Non- : No Diabetic: Yes Tobacco smoker: No Systolic Blood Pressure: 144 mmHg Is BP treated: Yes HDL Cholesterol: 36 mg/dL Total Cholesterol: 183 mg/dL No results for input(s): LDLDIRECT, LDLCALC, LDLCHOL in the last 05[address] hours. HEALTH MAINTENANCE REVIEW: Health Maintenance Due Topic Date Due Pneumococcal Vaccine: 65+ Years (2 of 2 - PPSV23) 2020 DIABETES-HGBA1C EVERY 6 MONTHS 05/17/2021 COVID-19 Vaccine (3 - Booster) 06/30/2021 Depression Screening, Annual for Pts 12 and Over 07/28/2021 CKD GFR USE SMARTSET 16379 09/19/2021 BREAST CANCER SCREENING DISCUSSION YEARLY AGES 40-75 10/01/2021 ASSESSMENT & PLAN: ICD-10-CM 1. Type 2 diabetes mellitus with hemoglobin A1c goal of 7.0%-8.0% (HCC) E11.9 BG Readings Blood sugars controlled. Patient notes recently had A1c while inpatient at [facility], A1c was 7.3%, which is much improved. Medications Reviewed current regimen, patient is adherent to regimen. REcommending to continue current medication at this time. Diet, Exercise, Lifestyle No significant lifestyle changes since last visit. Discussed with patient. Patient is agreeable to SMBG 2-3 time(s) daily. Patient aware to contact clinic if any hypoglycemia before next visit. MEDICATION CHANGES: no change Diabetic Medications: Novolog - 40 units with meals +SS 1:25 >150 Tresiba 60 units HS Trulicity 4.5 mg weekly- Tuesday mornings HEALTH MAINTENANCE INTERVENTIONS: Labs: Up to Date Immunizations: Up to Date Foot Exam: Up to Date Eye Exam: Up to Date Annual Wellness Visit: Patient Declines FOLLOW UP: Return to clinic in 12 weeks Next Office Visit: 01/21/2022 Scheduled Provider(s): [facility] Jeramie Avila RPh Clinical Pharmacist - Accounts Receivable Administrator Medication Therapy Management Clinic 10/05/2021, 9:02 AM documented in this encounter Plan of Treatment Upcoming Encounters Date Type Specialty Care Team Description 10/08/2021 Home Visit Family Medicine Magaly Morales, Community Health Petroleum Sampler [address] [place] [address] 10/08/2021 Office Visit Sleep Disorders Celsa Tafoya CRNP [address] [address] 10/20/2021 Home Visit [facility] Vera Capellan RN [address] [address] 01/21/2022 Office Visit Family Medicine Kevin Whiteside DO [address] [address] 01/21/2022 Office Visit Pharmacy [place] [facility] Jeramie [address] [address] 04/05/2022 Office Visit Cardiology Marjorie Powell PA-C [address] [address] Scheduled Procedures Name Priority Associated Diagnoses Date/Ti [...] 07/28/2021 07/28/2020, 06/12/2018 CKD GFR USE SMARTSET 67977 09/19/202103/20, 03/12/2021, 12/25/2020, Additional history exists BREAST CANCER SCREENING DISCUSSION YEARLY AGES 40-75 10/01/2021 10/01/2020, 07/10/2019, 06/23/2018, Additional history exists DIABETES-FOOT EXAM 01/14/2022 01/14/2021, 0 11/07/2019, 01/01/2019, Additional history exists CKD PHOS USE SMARTSET 41005 03/12/202202/24, 11/17/2020, 12/24/2019, Additional history exists DIABETES-URINE MICROALBUMIN EVERY 12 MONTHS 03/12/2022 03/12/2021, 03/12/2021, 12/24/2019, Additional history exists CKD HGB USE SMARTSET 60999 03/20/202203/20, 03/20/2021, 03/12/2021, Additional history exists DIABETES-EYE [...] Documents on File Type Date Recorded Patient Space Controller Expl anation Advanced Directive Advanced Directive Advanced [...] Camp Other Health Care Hayden r of Watch Electrician Princess Allen Other Health Care Pow er of Watch Electrician Care Teams Yard Switch Operator Relationship Specialty Start Date End Date Kevin Whiteside DO [address] [address] PCP - General Family Medicine 05/01/18 documented as of this encounter
--- OUTSIDE RECORDS SUMMARY | 2023-06-01 04:52 | External Medical Summary | Summary of Care ---
Author Name Unknown Organization [place] [address] Care Team Providers Care Internist Medical Doctor Md Name Role Phone Kevin Whiteside DO Primary Care Provider Reason for Visit * Reason Comments [facility]: Maintenance Encounter Details Date Type Department Care Team Description 09/26/2021 Home Visit [facility], [facility] [address] [facility] [place] [address] [facility], Nurse [facility] [address] [place] [address] Benign hypertensive heart and kidney disease with [...] as of this encounter (statuses as of 09/26/2021) Medications Medication Sig Dispensed Refills Start Date [...] Cap 3 12/18/2019 Active DIURETIC TITRATION PLANIndications:Head Of Acquisitions 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 1 Each 0 04/08/2020 Active Blood Glucose Monitoring Suppl (Fashion MovementUCH ULTRA 2) w/Device KIT Use to test [...] 7.0%-8.0% ([facility]) Inject 60 Units under the skin daily. 45 mL 3 12/18/2020 Active Meclizine HCl 12.5 MG Oral Tablet (Antivert)Indication s:Vertigo Take 1 Tab by mouth 3 times a day as needed for Dizziness. 30 Tab 1 12/29/2020 Active Levothyroxine Sodium 50 MCG Oral Tablet (Levoxyl)Indications :Hyperparathyroidism , secondary renal ([facility]) Take 1 Tab by mouth daily. [...] 7.0%-8.0% ([facility]) Inject 40 units with meals + sliding scale 1 units for every 25 units BG > 150. 121 mL 3 03/20/2021 Active Furosemide 40 MG Oral Tablet (Lasix)Indications:C hronic diastolic congestive heart failure ([facility]) Take 0.5 Tabs by mouth 2 [...] as of this encounter (statuses as of 09/26/2021) Active Problems Problem Noted Date Hypotension 12/19/2020 [...] 10/14/2014 Overview: ICD-10 update of inactive term Cobb filter in place 08/19/2014 History of pulmonary embolus (PE) 2013 Statin intolerance 07/16/2014 HTN, goal below 130/80 02/22/2014 Venous insufficiency 02/07/2013 ELISSA (obstructive sleep apnea) 09/16/2011 Overview: CPAP 11 cwp Mild, AHI 11.3 but with significant nocturnal hypoxemia Dicks Postsurgical hypothyroidism 06/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 documented as of this encounter (statuses as of 09/26/2021) Resolved Problems Problem Noted Date Resolved Date [...] as of this encounter (statuses as of 09/26/2021) Immunizations Name Administration Dates Next Due COVID-19 [...] Sign Reading Time Taken Comments Blood Pressure 116/60 09/26/2021 11:20 AM EST Pulse 84 09/26/2021 11:20 AM EST Temperature 36.2 C (97.1 F) 09/26/2021 1 1:20 AM EST Respiratory Rate 18 09/26/2021 11:2 0 AM EST Oxygen Saturation 92% 09/26/2021 11: 20 AM EST o2 on at 3 l/min via NC Inhaled Oxygen Concentration - - Weight 158.8 kg (350 lb) 09/26/2021 11: 20 AM EST Height - - Body Mass Index 60.08 12/29/2020 9:29 AM EDT documented in this encounter Progress Notes * Vera Capellan RN - 09/26/2021 10:08 AM EST [facility] X Ray Technologist ROSA #1 Visit Date: 09/26/2021 Time: 10:08 AM Name: Stephanie Camp : 1955 Current Concerns: Pt hospitalized at [facility] 09/19-09/25 for pneumonia, Acute Kidney injury, Hypoxia, Elevated Troponin,UTI Creatinine was 2.6 when admitted and trended down to 1.7 with little IV fluids, per consult note from nephrology Pt discharged home on z-pack and cefdinir - did not get from pharmacy yet - provided doses of azithromycin for today from med box Pt reports she is able to get cefdinir from pharmacy tomorrow Pt reports she is feeling tired but breathing is at baseline Hgb A1c in hospital was 7.3 Wt in hospital was 350 lbs Very Faint crackles of b/l bases Pt is wearing oxygen at 3 l/min via NC at all times now and also CPAP q HS Pt interested in getting MOW's and needs help with cleaning apartment. Msg sent to for further f/u. Physical Exam: BP 116/60 | Pulse 84 | Temp 36.2 C (97.1 F) | Resp 18 | Wt (!) 158.8 kg (350 lb) | LMP 03/11/2003 | SpO2 92% Comment: o2 on at 3 l/min via NC | BMI 60.08 kg/m | BSA 2.68 m Pain 0 Physical Exam Constitutional: Appearance: She is obese. HENT: Nose: Nose normal. Cardiovascular: Rate and Rhythm: Normal rate and regular rhythm. Pulses: Normal pulses. Heart sounds: Normal heart sounds. Pulmonary: Breath sounds: Rales (faint crackles b/l bases) present. Abdominal: General: Bowel sounds are normal. Palpations: Abdomen is soft. Skin: General: Skin is warm and dry. Coloration: Skin is pale. Neurological: Mental Status: She is alert and oriented to person, place, and time. Problems/Symptoms: Review of Systems Constitutional: Positive for fatigue. HENT: Negative. Eyes: Negative. Respiratory: Positive for shortness of breath (AVENDAÑO - mildly above baseline). Negative for cough. Cardiovascular: Negative. Gastrointestinal: Negative. Endocrine: Negative. Genitourinary: Negative. Musculoskeletal: Positive for arthralgias, back pain and gait problem. Neurological: Positive for weakness (generalized). Psychiatric/Behavioral: Negative. Medication Reconciliation: (See medication list) Does patient take medications as ordered: Yes Patient Well Being: PHQ2/9: No questionnaires available. No change in living situation. Denies falls Wears PERS Advanced Care Planning: [...] prn for fluid overload-take only as advised Complete entire course of abx as ordered Wear PERS at all times Home Interventions Provided: Oral Medications: Antibiotic Home Intervention: Other; Evaluation Reinforced current Plan of Care, including self-management and medication regimen Patient's 'Red Flags': 1. Worsening SOB 2. Increased edema/abd bloating 3. Fall w/ injury Patient Needs to Remember: Call [facility] at with any new or worsening health concerns or problems, red flag symptoms. Referrals Needed: Head Strength And Conditioning Coach Follow Up: Patient encouraged to call the intake phone number for all urgent but not emergent issues. Is the patient new to [facility] within the last 30 days? No, Assess appropriateness for upcoming telehealth visits. Cancel telehealth visits & schedule home visit with care senior engineering team leader(s)as indicated. Provider is in agreement with Plan of Care: Yes Scheduled to follow up with patient per ROSA schedule. Vera Capellan RN 09/26/2021 10:08 AM documented in this encounter Plan of Treatment Upcoming Encounters Date Type Specialty Care Team Description 09/29/2021 Office Visit Family Medicine Kevin Whiteside DO [address] [place] [address] 10/05/2021 Office Visit Cardiology Rey Woodall MD [address] [place] [address] 10/05/2021 Office Visit Pharmacy [facility] [address] [place] [address] 10/08/2021 Home Visit Family Medicine Magaly Morales, Community Health Arabic Linguist [address] [place] [address] 10/08/2021 Office Visit Sleep Disorders Celsa Tafoya CRNP [address] [place] [address] 10/20/2021 Home Visit [facility] Vera Capellan RN [address] [place] [address] 01/21/2022 Office Visit Family Kevin Richter DO [address] [place] [address] Scheduled Procedures Name Priority Associated Diagnoses Date/Ti [...] 07/28/2021 07/28/2020, 06/12/2018 CKD GFR USE SMARTSET 31263 09/19/202103/20, 03/12/2021, 12/25/2020, Additional history exists BREAST CANCER SCREENING DISCUSSION YEARLY AGES 40-75 10/01/2021 10/01/2020, 07/10/2019, 06/23/2018, Additional history exists DIABETES-FOOT EXAM 01/14/2022 01/14/2021, 0 11/07/2019, 01/01/2019, Additional history exists CKD PHOS USE SMARTSET 95082 03/12/202202/24, 11/17/2020, 12/24/2019, Additional history exists DIABETES-URINE MICROALBUMIN EVERY 12 MONTHS 03/12/2022 03/12/2021, 03/12/2021, 12/24/2019, Additional history exists CKD HGB USE SMARTSET 15982 03/20/202203/20, 03/20/2021, 03/12/2021, Additional history exists DIABETES-EYE [...] on File Type Date Recorded Patient Senior Human Resources 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 Expl anation Advanced Directive Advanced Directive Advanced [...] Camp Other Health Care Hayden r of Rock Breaker Princess Staplesfany Other Health Care Pow er of Rock Breaker Care Teams Internist Medical Doctor Md Relationship Specialty Start Date End Date Kevin Whiteside, [address] [place] [address] PCP - General Family Medicine 05/01/18 documented as of this encounter"
--- OUTSIDE RECORDS SUMMARY | 2023-06-01 04:52 | External Medical Summary | Summary of Care ---
Author Name Unknown Organization [place] [address] Care Team Providers Care Spot Washer Name Role Phone Migue Whiteside DO Primary Care Provider Reason for Visit * Reason Comments Follow Up Encounter Details Date Type Department Care Team Description 10/05/2021 Office Visit Cardiology, 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 1 Each 0 04/08/2020 Active Blood Glucose Monitoring Suppl (Socialance ULTRA 2) w/Device KIT Use to test BG values 1 Kit 0 05/20/2020 Active Glucose Blood ([place] Used Gym EquipmentTOUCH ULTRA BLUE) STRP Check sugars 3-4 times [...] with hemoglobin A1c goal of 7.0%-8.0% ([facility]) Inject 60 Units under the skin daily. 45 mL 3 12/18/2020 Active Meclizine HCl 12.5 MG Oral Tablet (Antivert)Indication s:Vertigo Take 1 Tab by mouth 3 times a day as needed for Dizziness. 30 Tab 1 12/29/2020 Active Levothyroxine Sodium 50 MCG Oral Tablet (Levoxyl)Indications :Hyperparathyroidism , secondary renal ([facility]) Take 1 Tab by mouth daily. (at [...] with hemoglobin A1c goal of 7.0%-8.0% ([facility]) Inject 40 units with meals + sliding scale 1 units for every 25 units BG > 150. 121 mL 3 03/20/2021 Active Furosemide 40 MG Oral Tablet (Lasix)Indications:C hronic diastolic congestive heart failure ([facility]) Take 0.5 Tabs by mouth 2 times [...] 10/14/2014 Overview: ICD-10 update of inactive term Osyka filter in place 08/19/2014 History of pulmonary [...] 76%, time <89% 6:21 hours, TINY 47 [facility] Nontoxic uninodular goiter 06/16/201108/17 Body mass [...] Sign Reading Time Taken Comments Blood Pressure 144/66 10/05/2021 8:18 AM EST Pulse 92 10/05/2021 8:18 AM EST Temperature - - Respiratory Rate 20 10/05/2021 8:18 AM EST Oxygen Saturation 95% 10/05/2021 8:1 8 AM EST at rest. 3L via NC Inhaled Oxygen Concentration - - Weight 152.5 kg (336 lb 3.2 oz) 10/05/2021 8:18 AM EST Height - - Body Mass Index 57.71 12/29/2020 9:29 AM EDT documented in this encounter Progress Notes * Rey Woodall MD - 10/05/2021 7:54 AM EST October 05, 2021 Cardiology Follow Up Referring Provider: PCP: MIGUE WHITESIDE [address] [place] [address] Chief Complaint: Orthostasis SUBJECTIVE: Stephanie Camp is a 66 year old year old female ongoing issue 1.Morbid obesity. 2.Obstructive sleep apnea/possible interstitial lung disease on CPAP supplementation and oxygen supplementation 3.Hypertension. 4.Type 2 diabetes mellitus. 5.Chronic fibromyalgia. 6.History of bilateral pneumonia with extensive hospitalization in 2008 requiring extended intubation, Frank filter implantation with pulmonary embolus. 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 8. Chronic diastolic heart failure multiple factorial etiology 9. Chronic renal insufficiency Patient presents now in routine followup. She notes hospitalization in late August 2021 with urosepsis/pneumonia acute renal insufficiency Patient is gradually recovering since hospital discharge. Weight is down approximately 14 lb over the past 2 weeks as fluid weight resolved. No chest pains no dizziness or lightheadedness. Has been wearing oxygen faithfully now 3 L nasal cannula. No productive cough. No bleeding difficulties. Has chronic neuropathic pain No chest pains or tachy palpitations. Received COVID booster last week. A Complete Review of Systems is as stated above or negative. Patient Active Problem List Diagnosis Code Dyslipidemia E78.5 ELLIE (generalized anxiety disorder) F41.1 Postsurgical hypothyroidism E89.0 ELISSA (obstructive sleep apnea) G47.33 Venous insufficiency I87.2 HTN, goal below 130/80 I10 History of pulmonary embolus (PE) Z86.711 Statin intolerance Z78.[address] Z95.828 Type 2 diabetes mellitus with hemoglobin A1c goal of 7.0%-8.0% ([facility]) E11.9 Fibromyalgia M79.7 Abnormality of gait R26.9 Restless legs syndrome G25.81 Gastroesophageal reflux disease with esophagitis K21.00 Morbid obesity with BMI of 50.0-59.9, adult ([facility]) E66.01, Z68.43 Controlled substance agreement signed Z79.899 Chronic diastolic congestive heart failure ([facility]) I50.32 Mild episode of recurrent major depressive disorder ([facility]) F33.0 Lumbar radiculopathy M54.16 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, NYHA class 1 and CKD stage 3 ([facility]) I13.0, I50.30, N18.30 Hyperparathyroidism, secondary renal ([facility]) N25.81 Vasculitis ([facility]) I77.6 Primary osteoarthritis of left knee M17.12 Spinal stenosis of lumbar region without neurogenic claudication M48.061 Hypotension I95.9 Review of patient's allergies indicates: Allergen Reactions [...] to test BG values 1 Kit 0 Glucose Blood (ONETOUCH ULTRA BLUE) STRP Check sugars 3-4 times daily, E11.9 400 Strip 3 clobetasol propionate (TEMOVATE) 0.05 % cream Apply to rash on the hands and dorsal feet twice daily x 1 week, then as needed for flares. 30 g 1 Magnesium Oxide 400 (241.3 Mg) MG Oral Tablet Take 400 mg by mouth daily. (Patient taking differently: Take 200 mg by mouth daily.) 90 Tab 0 DULoxetine HCl 60 MG Oral Capsule Delayed Release Particles (CYMBALTA) Take 1 Cap by mouth daily. Along with 30 mg capsule to total 90 mg daily. 90 Cap 3 rOPINIRole HCl 2 MG Oral Tablet (Requip) Take 1 Tab by mouth at bedtime. 90 Tab 3 Acetaminophen 500 MG Oral Tablet (Acetaminophen Extra Strength) Take 500 mg by mouth every 6 hours as needed. Tresiba FlexTouch 100 UNIT/ML Subcutaneous Solution Pen-injector (Insulin Degludec) Inject 60 Units under the skin daily. 45 mL 3 Meclizine HCl 12.5 MG Oral Tablet (Antivert) Take 1 Tab by mouth 3 times a day as needed for Dizziness. 30 Tab 1 Dicyclomine HCl 20 MG Oral Tablet (Bentyl) Take 1 Tab by mouth 4 times a day as needed for Pain, Mild. For abdominal pain 120 Tab 11 Nortriptyline HCl 50 MG Oral Capsule (Pamelor) Take 1 Cap by mouth at bedtime. 90 Cap 1 Nerve Pain Relief Sublingual Tablet Sublingual Place under the tongue. Indications: pt taking Nervive, nerve relief tablets at bedtime NovoLOG FlexPen 100 UNIT/ML Subcutaneous Solution Pen-injector (insulin aspart) Inject 40 unitswith meals + sliding scale 1 units for every 25 units BG > 150. 121 mL 3 Furosemide 40 MG Oral Tablet (Lasix) Take 0.5 Tabs by mouth 2 times a day. May take an additional 20 mg 2 to 3 days per week as needed for worsening swelling 135 Tab 3 Levothyroxine Sodium 200 MCG Oral Tablet (Levoxyl) TAKE ONE TABLET BY MOUTH IN THE MORNING AT LEAST 30 MINUTES PRIOR TO BREAKFAST OR OTHER MEDS 90 Tab 1 CPAP every night at bedtime. Gabapentin 300 MG Oral Capsule (Neurontin) Take 300 mg by mouth 2 times a day. metOLazone 2.5 MG Oral Tablet (Zaroxolyn) Take 2.5 mg by mouth daily as needed. Do not take unless instructed by provider traMADol HCl 50 MG Oral Tablet (Ultram) Take 1 Tab by mouth every 8 hours as needed for Pain, Severe. 90 Tab 0 Trulicity 4.5 MG/0.5ML Subcutaneous Solution Pen-injector (Dulaglutide) Inject 1 pen under the skin weekly 2 mL 5 traZODone HCl 50 MG Oral Tablet (Desyrel) Take 1 Tablet by mouth at bedtime. 90 Tablet 1 DULoxetine HCl 30 MG Oral Capsule Delayed Release Particles (Cymbalta) TAKE ONE CAPSULE BY MOUTH ONE TIME DAILY. TAKE WITH 60 MG CAPSULE FOR A TOTAL OF 90 MG 90 Capsule 1 Ondansetron HCl 4 MG Oral Tablet (Zofran) Take 1 Tablet by mouth every 6 hours as needed for Nausea. 30 Tablet 6 Cyclobenzaprine HCl 10 MG Oral Tablet (Flexeril) TAKE ONE TABLET BY MOUTH AT BEDTIME NEEDED FOR SPASM 30 Tablet 0 BD Pen Needle Short U/F 31G X 8 MM (Insulin Pen Needle) use five times daily 200 Each 5 clonazePAM 0.5 MG Oral Tablet (KlonoPIN) Take 1 Tablet by mouth 2 times a day. 60 Tablet 0 Potassium Chloride Ayleen ER 10 MEQ Oral Tablet Extended Release Take 10 mEq by mouth every otherday. Cholecalciferol 125 MCG (5000 UT) Oral Capsule Take 1,000 Units by mouth daily. Levothyroxine Sodium 50 MCG Oral Tablet (Levoxyl) Take 1 Tab by mouth daily. (at least 30 min prior to breakfast or other meds) 30 Tab 11 Colchicine 0.6 MG Oral Tablet Take 1/2 tab daily (Patient not taking: Reported on 09/26/2021) 45 Tab 1 Lidocaine 4 % External Patch (HM Lidocaine Patch) Place 1 Patch topically on the skin daily. (Patient not taking: Reported on 09/29/2021) Azithromycin 500 MG Oral Tablet (Zithromax) Take 500 mg by mouth daily. (Patient not taking: Reported on 10/05/2021) Cefdinir 300 MG Oral Capsule (Omnicef) Take 300 mg by mouth 2 times a day. (Patient not taking:Reported on 10/05/2021) No current facility-administered medications for this visit. OBJECTIVE/PHYSICAL EXAMINATION: BP 144/66 (BP Site: Left Arm, BP Position: Sitting, BP Cuff Size: Large) | Pulse 92 | Resp 20 | Wt (!) 152.5 kg (336 lb 3.2 oz) | LMP 03/11/2003 | SpO2 95% Comment: at rest. 3L via NC | BMI 57.71 kg/m | BSA 2.62 m General: no acute distress and stated age morbidly obese Head: normocephalic, no masses, lesions, tenderness or abnormalities Eyes: conjunctiva are pink and non-injected, sclera clear Throat: clear Nares: without discharge Neck: supple, no adenopathy, no bruits, normal jugular venous pulse, no hepatojugular reflux, no carotid bruits Chest: normal shape and normal respiratory effort Lungs: clear to auscultation and percussion Cardiac Exam: - regular rate & rhythm, no murmurs gallops or rubs - normal S-1, normal S-2 Pulses: 2(+) throughout Abdomen: abdomen soft, obese, with large panniculus non-tender, no abnormal masses, no hepatosplenomegaly, no abdominal bruit, no femoral bruit Musculoskeletal: no gait disturbance, no joint inflammation, no deforming arthritis Extremities: 1+ edema no cyanosis, pulses intact 2+/4 Neuro: grossly normal exam Data: Echocardiogram September 20, 2021 Normal left ventricular chamber size with mild left hypertrophy,normal LV systolic function EF 60 65% without wall motion abnormality Moderate aortic sclerosis without stenosis Mitral valve annular calcification EKG September 24, 2021, personally reviewed ([facility]) Normal sinus rhythm with normal tracing rate 99 beats per minute low-voltage QRS consistent with body habitus Nonspecific ST segment abnormalities ASSESSMENT: 66 year old year old female With morbid obesity Pickwickian syndrome with obstructive sleep apnea and likely underlying interstitial lung disease as well as chronic diastolic heart failure. Patient presents today after recent hospitalization without acute cardiac complaints. Excess fluid weight appears to be improving PLAN: Continue current medical regimen. Encourage patient to begin following daily weights, report acute weight gain CHF instructions Continue oxygen supplementation Given recent renal insufficiency follow-up BMP in the next months time DISPOSITION: Return 6 months Rey Woodall MD [facility] Cardiology, [address] [address] documented in this encounter Nursing Notes * Anthony Garcia LPN - 10/05/2021 8:18 AM EST Examination Room: 15 Name: Stephanie Camp Date of : (1955). Reason for Visit: f/u Interim Hospitalization(s): [facility] 09/20/2021-09/24/2021 sepsis, pneumonia Problems/Concerns: reports worsening SOB, currently wearing O2 3L via NC. Denies worsening edema. Chest Pain/SOB: denies chest pain [facility] is a way you can talk to your provider online through e-mail. Would you like to sign up? I can activate it for you? ALREADY ACTIVE Patient was instructed to not get up on the exam table until directed and assisted by their provider; patient is to remain seated in the chair/ wheelchair/ exam table for fall prevention and safety reasons. Patient is aware to have assistance to step down off exam table with personnel. Patient voiced full comprehension of instructions. documented in this encounter Plan of Treatment Upcoming Encounters Date Type Specialty Care Team Description 10/08/2021 Home Visit Family Medicine Magaly Morales, Community Health Consulting Business Developer [address] [place] [address] 10/08/2021 Office Visit Sleep Disorders Celsa Tafoya CRNP [address] [place] [address] 10/20/2021 Home Visit [facility] Vera Capellan, LEXI [address] [facility] [place] [address] 01/21/2022 Office Visit Family Medicine Migue Whiteside DO [address] [place] [address] 01/21/2022 Office Visit Pharmacy [facility] [address] [place] [address] 04/05/2022 Office Visit Cardiology [facility] Powell [facility]C 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, NYHA class 1 and CKD stage 3 (HCC) Expected: 11/05/2021, Expires: 10/05/2022 Scheduled Procedures Name Priority Associated Diagnoses Date/Ti [...] 07/28/2021 07/28/2020, 06/12/2018 CKD GFR USE SMARTSET 77136 09/19/202103/20, 03/12/2021, 12/25/2020, Additional history exists BREAST CANCER SCREENING DISCUSSION YEARLY AGES 40-75 10/01/2021 10/01/2020, 07/10/2019, 06/23/2018, Additional history exists DIABETES-FOOT EXAM 01/14/2022 01/14/2021, 0 11/07/2019, 01/01/2019, Additional history exists CKD PHOS USE SMARTSET 68070 03/12/202202/24, 11/17/2020, 12/24/2019, Additional history exists DIABETES-URINE MICROALBUMIN EVERY 12 MONTHS 03/12/2022 03/12/2021, 03/12/2021, 12/24/2019, Additional history exists CKD HGB USE SMARTSET 39685 03/20/202203/20, 03/20/2021, 03/12/2021, Additional history exists DIABETES-EYE [...] and CKD stage 3 (HCC)- Primary Chronic diastolic congestive heart failure (HCC) Chronic diastolic heart failure ELISSA (obstructive sleep apnea) Obstructive sleep apnea (adult) (pediatric) documented in this encounter Advance Directives Documents on File Type Date Recorded Patient Peg Driver Expl anation Advanced Directive Advanced Directive [...] Camp Other Health Care Hayden r of Biofuels Plant Manager Princess Allen Other Health Care Pow er of Biofuels Plant Manager Care Teams Spot Washer Relationship Specialty Start Date End Date Migue Whiteside DO [address] [address] PCP - General Family Medicine 05/01/18 documented as of this encounter"
--- OUTSIDE RECORDS SUMMARY | 2023-06-01 04:52 | External Medical Summary | Summary of Care ---
Author Name Unknown Organization [place] [address] Care Team Providers Care Deputy United States Marshal Name Role Phone Kevin Whiteside DO Primary Care Provider Reason for Visit * Reason Comments Hospital Follow-Up Pt was in for UTI/se psis, and pneumonia. 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, NYHA class 1 and CKD stage 3 ([facility]) Allergies Active Allergy Reactions Severity Noted Date Comments Codeine 07/08/2014 hallucination Pollen 05/18/2019 Heparin 09/04/2009 Heparin Induced Thrombocytopenia Hydrocodone Neuro complications (Please comment) 07/28/2020 Empagliflozin Other (Please comment) Medium 05/17/2018 3 yeast infections in 6 weeks after starting Morphine And Related 09/16/1997 Hallucinations Tetanus Toxoid Other (Please comment) 06/15/2011 Passed out documented as of this encounter (statuses as of 09/29/2021) Medications Medication Sig Dispensed Refills Start Date [...] 90 Cap 3 12/18/2019 Active DIURETIC TITRATION PLANIndications:Licensed Massage Therapist 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 1 Each 0 04/08/2020 Active Blood Glucose Monitoring Suppl (ReunifyUCH ULTRA 2) w/Device KIT Use to test BG values 1 Kit 0 05/20/2020 Active Glucose Blood (Quiet LogisticsTOUCH ULTRA BLUE) STRP Check sugars 3-4 times [...] goal of 7.0%-8.0% ([facility]) Inject 60 Units under the skin daily. 45 mL 3 12/18/2020 Active Meclizine HCl 12.5 MG Oral Tablet (Antivert)Indication s:Vertigo Take 1 Tab by mouth 3 times a day as needed for Dizziness. 30 Tab 1 12/29/2020 Active Levothyroxine Sodium 50 MCG Oral Tablet (Levoxyl)Indications :Hyperparathyroidism , secondary renal ([facility]) Take 1 Tab by mouth daily. (at least 30 min prior to breakfast or other meds) 30 Tab 11 01/14/2021 Active Colchicine 0.6 MG Oral TabletIndications:Le ukocytoclastic vasculitis ([facility]) Take 1/2 tab daily 45 Tab 1 [...] Tablet (Lasix)Indications:C hronic diastolic congestive heart failure ([facility]) Take 0.5 Tabs by mouth 2 times [...] mouth 2 times a day. 0 Active Fluconazole 150 MG Oral Tablet (Diflucan) Take 1 Tablet by mouth once for 1 dose. 1 Tablet 1 09/29/2021 2 Active documented as of this encounter (statuses as of 09/29/2021) Active Problems Problem Noted Date Hypotension 12/19/2020 [...] 10/14/2014 Overview: ICD-10 update of inactive term [place] filter in place 08/19/2014 History of pulmonary embolus (PE) 2013 Statin intolerance 07/16/2014 HTN, goal below 130/80 02/22/2014 Venous insufficiency 02/07/2013 ELISSA (obstructive sleep apnea) 09/16/2011 Overview: CPAP 11 cwp Mild, AHI 11.3 but with significant nocturnal hypoxemia Dicks Postsurgical hypothyroidism 06/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 documented as of this encounter (statuses as of 09/29/2021) Resolved Problems Problem Noted Date Resolved Date [...] as of this encounter (statuses as of 09/29/2021) Immunizations Name Administration Dates Next Due COVID-19 [...] Sign Reading Time Taken Comments Blood Pressure 136/62 09/29/2021 11:01 AM EST Pulse 84 09/29/2021 11:01 AM EST Temperature 36.3 C (97.3 F) 09/29/2021 11:[address] Respiratory Rate 24 09/29/2021 11:01 AM EST Oxygen Saturation - - Inhaled Oxygen Concentration - - Weight 154 kg (339 lb 6.4 oz) 09/29/2021 11:01 A M EST Height - - Body Mass Index 58.26 12/29/2020 9:29 AM EDT documented in this encounter Progress Notes * Kevin Sherrick Whiteside, DO - 09/29/2021 11:08 AM EST Assessment and plan Hospital discharge follow-up Improved and stable Continue O2 supplementation F/u with Home Type 2 diabetes mellitus with hemoglobin A1c goal of 7.0%-8.0% (HCC) Controlled substance agreement signed Hyperparathyroidism, secondary renal (HCC) Dyslipidemia HTN, goal below 130/80 Chronic diastolic congestive heart failure (HCC) 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 Subjective Stephanie Camp is a 66 year old female that presents for Hospital Follow-Up (Pt was in for UTI/sepsis, and pneumonia. PT was at [facility]) HPI Objective BP 136/62 (BP Site: Left Arm, BP Position: Sitting, BP Cuff Size: Large) | Pulse 84 | Temp 36.3 C(97.3 F) (Tympanic) | Resp 24 | Wt (!) 154 kg (339 lb 6.4 oz) | LMP 03/11/2003 | BMI 58.26 kg/m| BSA 2.64 m Body mass index is 58.26 kg/m. BP Readings from Last 3 Encounters: 09/29/21 136/62 09/26/21 116/60 09/08/21 118/60 Wt Readings from Last 3 Encounters: 09/29/21 (!) 154 kg (339 lb 6.4 oz) 09/26/21 (!) 158.8 kg (350 lb) 08/31/21 (!) 156.5 kg (345 lb 2 oz) Physical Exam Constitutional: Appearance: Normal appearance. HENT: Head: Normocephalic and atraumatic. Eyes: Extraocular Movements: Extraocular movements intact. Pupils: Pupils are equal, round, and reactive to light. Neurological: General: No focal deficit present. Mental Status: She is alert and oriented to person, place, and time. Psychiatric: Mood and Affect: Mood normal. Behavior: Behavior normal. Total time today including reviewing chart before the visit, pertinent labs, imaging reports, face to face time, and documentation time was 40 minutes. The above was discussed and understanding was expressed. Kevin Whiteside DO documented in this encounter Nursing Notes * Alvina Camargo LPN - 09/29/2021 11:00 AM EST Chief Complaint Patient presents with Hospital Follow-Up Pt was in for UTI/sepsis, and pneumonia. PT was at [facility] Pt states gets tired easily, pt was discharged on Tuesday. documented in this encounter Plan of Treatment Upcoming Encounters Date Type Specialty Care Team Description 10/05/2021 Office Visit Cardiology Rey Woodall MD [address] [place] [address] 10/05/2021 Office Visit Pharmacy [facility] Jeram[place] [address] [place] [address] 10/08/2021 Home Visit Family Medicine Magaly Morales, Community Health Scrum Coach [address] [place] [address] 10/08/2021 Office Visit Sleep Disorders Celsa Tafoya CRNP [address] [place] [address] 10/20/2021 [facility] Visit [facility] Vera Capellan RN [address] [place] [address] 01/21/2022 Office Visit Family Medicine Kevin Whiteside DO [address] [place] [address] Scheduled Procedures Name Priority Associated Diagnoses Date/Ti [...] 07/28/2021 07/28/2020, 06/12/2018 CKD GFR USE SMARTSET 72143 09/19/202103/20, 03/12/2021, 12/25/2020, Additional history exists BREAST CANCER SCREENING DISCUSSION YEARLY AGES 40-75 10/01/2021 10/01/2020, 07/10/2019, 06/23/2018, Additional history exists DIABETES-FOOT EXAM 01/14/2022 01/14/2021, 0 11/07/2019, 01/01/2019, Additional history exists CKD PHOS USE SMARTSET 33473 03/12/202202/24, 11/17/2020, 12/24/2019, Additional history exists DIABETES-URINE MICROALBUMIN EVERY 12 MONTHS 03/12/2022 03/12/2021, 03/12/2021, 12/24/2019, Additional history exists CKD HGB USE SMARTSET 07307 03/20/202203/20, 03/20/2021, 03/12/2021, Additional history exists DIABETES-EYE [...] as of this encounter Visit Diagnoses Diagnosis Hospital discharge follow-up- Primary Other follow-up examination Type 2 diabetes mellitus with hemoglobin A1c goal of 7.0%-8.0% (HCC) Controlled substance agreement signed Encounter for long-term (current) use of other medications Hyperparathyroidism, secondary renal (HCC) Secondary hyperparathyroidism (of renal origin) Dyslipidemia Other and unspecified hyperlipidemia HTN, goal below 130/80 Unspecified essential hypertension Chronic diastolic congestive heart failure (HCC) Chronic diastolic heart failure 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
--- OUTSIDE RECORDS SUMMARY | 2023-06-01 04:52 | External Medical Summary | Summary of Care ---
Author Name Unknown Organization [place] [address] Care Team Providers Care Informatics Consultant Name Role Phone Kevin Whiteside DO Primary Care Provider Reason for Visit * Reason Onset Date Comments [facility]: Maintenance 09/24/2021 Encounter Details Date Type Department Care Team Description 09/24/2021 Telephone [facility], [facility] [address] [facility] [place] [address] Services, Scheduling [address] [place] [address] [facility]: Maintenance Allergies Active Allergy Reactions Severity Noted Date Comments Codeine 07/08/2014 hallucination Pollen 05/18/2019 Heparin 09/04/2009 Heparin Induced Thrombocytopenia Hydrocodone Neuro complications (Please comment) 07/28/2020 Empagliflozin Other (Please comment) Medium 05/17/2018 3 yeast infections in 6 weeks after starting Morphine And Related 09/16/1997 Hallucinations Tetanus Toxoid Other (Please comment) 06/15/2011 Passed out documented as of this encounter (statuses as of 09/24/2021) Medications Medication Sig Dispensed Refills Start Date [...] 90 Cap 3 12/18/2019 Active DIURETIC TITRATION PLANIndications:Curtain Stretcher 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 1 Each 0 04/08/2020 Active Blood Glucose Monitoring Suppl (uTrack TVUCH ULTRA 2) w/Device KIT Use to test [...] Additional Information Patient not taking. Reported on 08/13/2021 DULoxetine HCl 60 MG Oral Capsule Delayed [...] of 7.0%-8.0% ([facility]) Inject 60 Units under the skin daily. 45 mL 3 12/18/2020 Active Meclizine HCl 12.5 MG Oral Tablet (Antivert)Indication s:Vertigo Take 1 Tab by mouth 3 times a day as needed for Dizziness. 30 Tab 1 12/29/2020 Active Additional Information Patient not taking. Reported on 08/31/2021 Levothyroxine Sodium 50 MCG Oral Tablet (Levoxyl)Indications :Hyperparathyroidism , secondary renal (HCC) Take 1 Tab by mouth daily. (at least 30 min prior to breakfast or other meds) 30 Tab 11 01/14/2021 Active Colchicine 0.6 MG Oral TabletIndications:Le ukocytoclastic vasculitis (HCC) Take 1/2 tab daily 45 Tab 1 02/09/2021 Active Dicyclomine HCl 20 MG Oral Tablet [...] of 7.0%-8.0% ([facility]) Inject 40 units with meals [...] as of this encounter (statuses as of 09/24/2021) Active Problems Problem Noted Date Hypotension 12/19/2020 [...] 10/14/2014 Overview: ICD-10 update of inactive term [place] filter in place 08/19/2014 History of pulmonary embolus (PE) 2013 Statin intolerance 07/16/2014 HTN, goal below 130/80 02/22/2014 Venous insufficiency 02/07/2013 ELISSA (obstructive sleep apnea) 09/16/2011 Overview: CPAP 11 cwp Mild, AHI 11.3 but with significant nocturnal hypoxemia Dicks Postsurgical hypothyroidism 06/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 documented as of this encounter (statuses as of 09/24/2021) Resolved Problems Problem Noted Date Resolved Date [...] inactive term HTN, goal below 140/90 04/09/2003 01/27/201 0 Overview: Per HTN Taxonomy. DM type 2, not at goal 05/29/2002 9 Overview: Modified per Diabetes protocol #14. TENOSYNOVITIS FOOT-ANKLE 12/26/2001 017 Goiter 01/13/2000 06/28/2011 BACKACHE NOS 08/26/1999 05/24/2017 OBESITY, UNSPECIFIED 08/26/1999 12/23/2009 Overview: Per Obesity Taxonomy Perforation of intestine 017 Overview: COLON Diverticulitis documented as of this encounter (statuses as of 09/24/2021) Immunizations Name Administration Dates Next Due COVID-19 [...] Miscellaneous Notes * Telephone Encounter - ELISSA Kaufman - 09/24/2021 2:22 PM EST Patient was a no show today to RN gus Gonzalez for her that nurse will be out sometime tomorrow to see her. Phone number provided for [place] at [phone]. ELISSA Kaufman documented in this encounter Plan of Treatment Upcoming Encounters Date Type Specialty Care Team Description 09/25/2021 [facility], Nurse Virginia Wellborn [address] [address] 09/29/2021 Office Visit Family Medicine Kevin Whiteside DO [address] [address] 10/05/2021 Office Visit Cardiology Rey Woodall MD [address] [place] [address] 10/05/2021 Office Visit Pharmacy [facility] [place] [address] [address] 10/08/2021 Home Visit Family Medicine Magaly Morales, Community Health Crusher Screen Repairer [address] [place] [address] 10/08/2021 Office Visit Sleep Disorders Celsa Tafoya CRNP [address] [address] 10/20/2021 Home Visit [facility] Vera Capellan RN [address] [address] 01/21/2022 Office Visit Family Medicine Kevin Whiteside DO [address] [address] Scheduled Procedures Name Priority Associated Diagnoses Date/Ti [...] 07/28/2021 07/28/2020, 06/12/2018 CKD GFR USE SMARTSET 05241 09/19/202103/20, 03/12/2021, 12/25/2020, Additional history exists BREAST CANCER SCREENING DISCUSSION YEARLY AGES 40-75 10/01/2021 10/01/2020, 07/10/2019, 06/23/2018, Additional history exists DIABETES-FOOT EXAM 01/14/2022 01/14/2021, 0 11/07/2019, 01/01/2019, Additional history exists CKD PHOS USE SMARTSET 19633 03/12/202202/24, 11/17/2020, 12/24/2019, Additional history exists DIABETES-URINE MICROALBUMIN EVERY 12 MONTHS 03/12/2022 03/12/2021, 03/12/2021, 12/24/2019, Additional history exists CKD HGB USE SMARTSET 02182 03/20/202203/20, 03/20/2021, 03/12/2021, Additional history exists DIABETES-EYE [...] Documents on File Type Date Recorded Patient Associate Research Scientist Expl anation Advanced Directive Advanced Directive Advanced [...] Camp Other Health Care Hayden r of Torpedo Man Princess Allen Other Health Care Pow er of Torpedo Man Care Teams Informatics Consultant Relationship Specialty Start Date End Date Kevin Whiteside DO [address] [place] [address] PCP - General Family Medicine 05/01/18 documented as of this encounter
--- OUTSIDE RECORDS SUMMARY | 2023-06-01 04:52 | External Medical Summary | Summary of Care ---
Author Name Unknown Organization [facility] Address [place] [address] Care Team Providers Care Machine Fancy Stitcher Name Role Phone Kevin Whiteside DO Primary Care Provider Reason for Visit * Reason Onset Date Comments [facility]: Maintenance 09/25/2021 Encounter Details Date Type Department Care Team Description 09/25/2021 Telephone [facility], [facility] [address] [place] [address] Tasha Mchugh, LEXI [facility] [place] [address] [facility]: Maintenance Allergies Active Allergy Reactions Severity Noted Date Comments Codeine 07/08/2014 hallucination Pollen 05/18/2019 Heparin 09/04/2009 Heparin Induced Thrombocytopenia Hydrocodone Neuro complications (Please comment) 07/28/2020 Empagliflozin Other (Please comment) Medium 05/17/2018 3 yeast infections in 6 weeks after starting Morphine And Related 09/16/1997 Hallucinations Tetanus Toxoid Other (Please comment) 06/15/2011 Passed out documented as of this encounter (statuses as of 09/25/2021) Medications Medication Sig Dispensed Refills Start Date [...] 90 Cap 3 12/18/2019 Active DIURETIC TITRATION PLANIndications:Vat House Supervisor 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 1 Each 0 04/08/2020 Active Blood Glucose Monitoring Suppl (finalsite ULTRA 2) w/Device KIT Use to test [...] of 7.0%-8.0% ([facility]) Inject 60 Units under the skin daily. [...] as of this encounter (statuses as of 09/25/2021) Active Problems Problem Noted Date Hypotension 12/19/2020 [...] 10/14/2014 Overview: ICD-10 update of inactive term [place] filter in place 08/19/2014 History of pulmonary embolus (PE) 2013 Statin intolerance 07/16/2014 HTN, goal below 130/80 02/22/2014 Venous insufficiency 02/07/2013 ELISSA (obstructive sleep apnea) 09/16/2011 Overview: CPAP 11 cwp Mild, AHI 11.3 but with significant nocturnal hypoxemia Dicks Postsurgical hypothyroidism 06/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 documented as of this encounter (statuses as of 09/25/2021) Resolved Problems Problem Noted Date Resolved Date [...] as of this encounter (statuses as of 09/25/2021) Immunizations Name Administration Dates Next Due COVID-19 mRNA, LNP-s, No Pre serve, 2-Dose Series (MakieLab) 12/29/2020,12/18/2020 Pneumococcal Polysaccharide PPV23 (Pneumovax) 08/22/2009,06/15/2006 Seasonal [...] encounter Miscellaneous Notes * Telephone Encounter - Tasha Mchugh RN - 09/25/2021 4:42 PM EST Phone call to patient for TOC1. States she is still in the hospital. Tentative discharge this evening. [facility] RN TOC1 home visit rescheduled to tomorrow around lunch, per patient preference documented in this encounter Plan of Treatment Upcoming Encounters Date Type Specialty Care Team Description 09/26/2021 [facility] [address] [address] 09/29/2021 Office Visit Family Medicine Kevin Whiteside DO [address] [address] 10/05/2021 Office Visit Cardiology Rey Woodlal MD [address] [address] 10/05/2021 Office Visit Pharmacy Danuta Ordaz [address] [place] [address] 10/08/2021 Home Visit Family Medicine Magaly Morales, Community Health Chief Fishery Division [address] [place] [address] 10/08/2021 Office Visit Sleep Disorders Celsa Tafoya CRNP [address] [address] 10/20/2021 Home Visit [facility] Vera Capellan RN [address] [place] [address] 01/21/2022 Office Visit Family Medicine Kevin Whiteside DO [address] [address] Scheduled Procedures Name Priority Associated Diagnoses Date/Ti [...] 07/28/2021 07/28/2020, 06/12/2018 CKD GFR USE SMARTSET 49356 09/19/202103/20, 03/12/2021, 12/25/2020, Additional history exists BREAST CANCER SCREENING DISCUSSION YEARLY AGES 40-75 10/01/2021 10/01/2020, 07/10/2019, 06/23/2018, Additional history exists DIABETES-FOOT EXAM 01/14/2022 01/14/2021, 0 11/07/2019, 01/01/2019, Additional history exists CKD PHOS USE SMARTSET 20898 03/12/202202/24, 11/17/2020, 12/24/2019, Additional history exists DIABETES-URINE MICROALBUMIN EVERY 12 MONTHS 03/12/2022 03/12/2021, 03/12/2021, 12/24/2019, Additional history exists CKD HGB USE SMARTSET 95242 03/20/202203/20, 03/20/2021, 03/12/2021, Additional history exists DIABETES-EYE [...] Documents on File Type Date Recorded Patient Picker/Puller Expl anation Advanced Directive Advanced Directive Advanced [...] [place] Other Health Care Hayden r of Cargo Inspector Princess Staplesfany Other Health Care Pow er of Cargo Inspector Care Teams Machine Fancy Stitcher Relationship Specialty Start Date End Date Kevin Whiteside DO 132 [facility] [place] [address] PCP - General Family Medicine 05/01/18 documented as of this encounter
--- OUTSIDE RECORDS SUMMARY | 2023-06-01 04:52 | External Medical Summary | Summary of Care ---
Author Name Unknown Organization [place] [address] Care Team Providers Care Medical Pathology Teacher Name Role Phone Kevin Whiteside DO Primary Care Provider Reason for Visit * Reason Onset Date Comments No Show 09/24/2021 Encounter Details Date Type Department Care Team Description 09/24/2021 [facility] [address] [facility] [place] [address] Brooke Jose, RN 132 [facility] [place] [address] NO SHOW/FAILED TO KEEP APPOINTMENT* Allergies Active [...] 90 Cap 3 12/18/2019 Active DIURETIC TITRATION PLANIndications:Plating Inspector 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 1 Each 0 04/08/2020 Active Blood Glucose Monitoring Suppl ([employer] ULTRA 2) w/Device KIT Use to test BG values 1 Kit 0 05/20/2020 Active Glucose Blood (saperatecTOUCH ULTRA BLUE) STRP Check sugars 3-4 times [...] 7.0%-8.0% ([facility]) Inject 60 Units under the [...] 10/14/2014 Overview: ICD-10 update of inactive term [place] filter in place 08/19/2014 History of [...] mRNA, LNP-s, No Pre serve, 2-Dose Series ([employer]) 12/29/2020,12/18/2020 Pneumococcal Polysaccharide PPV23 (Pneumovax) 08/22/2009,06/15/2006 Seasonal [...] Progress Notes * Brooke Jose RN - 09/24/2021 1:58 PM EST Patient failed to keep scheduled appointment. Brooke Jose RN documented in this encounter Plan of Treatment Upcoming Encounters Date Type Specialty Care Team Description 09/25/2021 Home Visit [facility], Nurse [facility] [address] [place] [address] 09/29/2021 Office Visit Family Medicine Kevin Whiteside DO [address] [address] 10/05/2021 Office Visit Cardiology Rey Woodall MD [address] [address] 10/05/2021 Office Visit Pharmacy [facility] [address] [address] 10/08/2021 Home Visit Family Medicine Magaly Morlaes, Community Health Practical Ministries Professor [address] [place] [address] 10/08/2021 Office Visit Sleep Disorders Celsa Tafoya CRNP [address] [address] 10/20/2021 Home Visit [facility] Vera Capellan RN [address] [address] 01/21/2022 Office Visit Family Medicine Kevin Whiteside DO [address] [address] Scheduled Procedures Name Priority Associated Diagnoses Date/Ti [...] 07/28/2021 07/28/2020, 06/12/2018 CKD GFR USE SMARTSET 85547 09/19/202103/20, 03/12/2021, 12/25/2020, Additional history exists BREAST CANCER SCREENING DISCUSSION YEARLY AGES 40-75 10/01/2021 10/01/2020, 07/10/2019, 06/23/2018, Additional history exists DIABETES-FOOT EXAM 01/14/2022 01/14/2021, 0 11/07/2019, 01/01/2019, Additional history exists CKD PHOS USE SMARTSET 15186 03/12/202202/24, 11/17/2020, 12/24/2019, Additional history exists DIABETES-URINE MICROALBUMIN EVERY 12 MONTHS 03/12/2022 03/12/2021, 03/12/2021, 12/24/2019, Additional history exists CKD HGB USE SMARTSET 77142 03/20/202203/20, 03/20/2021, 03/12/2021, Additional history exists DIABETES-EYE [...] Documents on File Type Date Recorded Patient Customs Agent Expl anation Advanced Directive Advanced Directive [...] Camp Other Health Care Hayden r of Functional Analyst Princess Allen Other Health Care Pow er of Functional Analyst Care Teams Medical Pathology Teacher Relationship Specialty Start Date End Date Kevin Whiteside DO [address] [facility] [place] [address] PCP - General Family Medicine 05/01/18 documented as of this encounter
--- OUTSIDE RECORDS SUMMARY | 2023-06-01 04:52 | External Medical Summary | Summary of Care ---
Author Name Unknown Organization [place] [address] Care Team Providers Care Salesperson Jewelry Name Role Phone Kevin Whiteside DO Primary Care Provider Reason for Visit * Reason Comments Supervisory Geographer Documentation Encounter Details Date Type Department Care Team Description 09/28/2021 Supervisory Geographer [facility], [facility] [address] [facility] [place] [address] [facility] [address] [place] [address] Allergies Active Allergy Reactions Severity Noted Date [...] Cap 3 12/18/2019 Active DIURETIC TITRATION PLANIndications:Medical Device 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 1 Each 0 04/08/2020 Active Blood Glucose Monitoring Suppl (EmailageTOUCH ULTRA 2) w/Device KIT Use to test [...] 7.0%-8.0% ([facility]) Inject 60 Units under the [...] 10/14/2014 Overview: ICD-10 update of inactive term [place] filter in place 08/19/2014 History of pulmonary [...] of this encounter Progress Notes * Olive Sumner LCSW - 09/28/2021 9:26 AM EST Worker was consulted by Vera ELLIOTT Meals Chart was reviewed. Worker placed a call to the [facility] [phone] Spoke to Suzanne. Referral was made for Home delivered meals. Worker was able to discuss the patient's situation and specific needs. Appropriate information was shared. Olive Sumner LCSW [facility] Order Entry Technician [facility] [phone] documented in this encounter Plan of Treatment Upcoming Encounters Date Type Specialty Care Team Description 09/29/2021 Office Visit Family Medicine Kevin Whiteside DO [address] [place] [address] 10/05/2021 Office Visit Cardiology Rey Woodall MD [address] [place] [address] 10/05/2021 Office Visit Pharmacy [facility] [place] [address] [facility] [place] [address] 10/08/2021 Home Visit Family Medicine Magaly Morales, Community Health Pound Attendant [address] [place] [address] 10/08/2021 Office Visit Sleep Disorders Celsa Tafoya CRNP [address] [facility] [place] [address] 10/20/2021 Home Visit [facility] Vera Capellan RN [address] [facility] [place] [address] 01/21/2022 Office Visit Family Medicine [facility] DO [facility] [place] [address] Scheduled Procedures Name Priority Associated Diagnoses Date/Ti [...] 07/28/2021 07/28/2020, 06/12/2018 CKD GFR USE SMARTSET 05773 09/19/202103/20, 03/12/2021, 12/25/2020, Additional history exists BREAST CANCER SCREENING DISCUSSION YEARLY AGES 40-75 10/01/2021 10/01/2020, 07/10/2019, 06/23/2018, Additional history exists DIABETES-FOOT EXAM 01/14/2022 01/14/2021, 0 11/07/2019, 01/01/2019, Additional history exists CKD PHOS USE SMARTSET 30552 03/12/202202/24, 11/17/2020, 12/24/2019, Additional history exists DIABETES-URINE MICROALBUMIN EVERY 12 MONTHS 03/12/2022 03/12/2021, 03/12/2021, 12/24/2019, Additional history exists CKD HGB USE SMARTSET 98501 03/20/202203/20, 03/20/2021, 03/12/2021, Additional history exists DIABETES-EYE [...] Documents on File Type Date Recorded Patient Lay Up Operator Expl anation Advanced Directive Advanced Directive [...] Camp Other Health Care Hayden r of Bullion Weigher Princess Allen Other Health Care Pow er of Bullion Weigher Care Teams Salesperson Jewelry Relationship Specialty Start Date End Date Kevin Whiteside DO [address] [facility] [place] [address] PCP - General Family Medicine 05/01/18 documented as of this encounter
--- OUTSIDE RECORDS SUMMARY | 2023-06-01 04:53 | External Medical Summary | Summary of Care ---
Author Name Unknown Organization [facility] Address [facility] [place] [address] Care Team Providers Care Asbestos Worker Helper Name Role Phone Kevin Whiteside DO Primary Care Provider Reason for Visit * Reason Onset Date Comments [facility]: Acute 09/15/2021 Encounter Details Date Type Department Care Team Description 09/15/2021 Telephone [facility] [address] [facility] [place] [address] [facility], Nurse [facility] [address] [facility] [place] [address] [facility]: Acute Allergies Active Allergy Reactions Severity Noted Date Comments Codeine 07/08/2014 hallucination Pollen 05/18/2019 Heparin 09/04/2009 Heparin Induced Thrombocytopenia Hydrocodone Neuro complications (Please comment) 07/28/2020 Empagliflozin Other (Please comment) Medium 05/17/2018 3 yeast infections in 6 weeks after starting Morphine And Related 09/16/1997 Hallucinations Tetanus Toxoid Other (Please comment) 06/15/2011 Passed out documented as of this encounter (statuses as of 09/15/2021) Medications Medication Sig Dispensed Refills Start Date [...] 90 Cap 3 12/18/2019 Active DIURETIC TITRATION PLANIndications:Indoor Landscaper/Gardener 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 1 Each 0 04/08/2020 Active Blood Glucose Monitoring Suppl (AkeLex ULTRA 2) w/Device KIT Use to test BG values 1 Kit 0 05/20/2020 Active Glucose Blood (TelefonicaTOUCH ULTRA BLUE) STRP Check sugars 3-4 times [...] as of this encounter (statuses as of 09/15/2021) Active Problems Problem Noted Date Hypotension 12/19/2020 [...] 10/14/2014 Overview: ICD-10 update of inactive term [place] filter in place 08/19/2014 History of pulmonary embolus (PE) 2013 Statin intolerance 07/16/2014 HTN, goal below 130/80 02/22/2014 Venous insufficiency 02/07/2013 ELISSA (obstructive sleep apnea) 09/16/2011 Overview: CPAP 11 cwp Mild, AHI 11.3 but with significant nocturnal hypoxemia Dicks Postsurgical hypothyroidism 06/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 documented as of this encounter (statuses as of 09/15/2021) Resolved Problems Problem Noted Date Resolved Date [...] as of this encounter (statuses as of 09/15/2021) Immunizations Name Administration Dates Next Due COVID-19 mRNA, LNP-s, No Pre serve, 2-Dose Series ([employer]) 12/29/2020,12/18/2020 Pneumococcal Polysaccharide PPV23 (Pneumovax) 08/22/2009,06/15/2006 Seasonal [...] Telephone Encounter - Dain Ireland DO - 09/15/2021 10:56 AM EST [facility] Phone Encounter Reviewed phone message. I agree w/ the advice offered via phone by our intake nursing team. Tested negative for COVID on 08/31 however had different symptoms at that time. If symptoms worsen or she develops new concerning symptoms, she should be tested again with respiratory panel. Please let me know via encounter or TT message if there is any change Thank you in advance, I appreciate it. Dain Ireland DO [facility] Test Analyst - [facility] 09/15/2021 * Telephone Encounter - Rosio Galan RN - 09/15/2021 10:37 AM EST [facility] sexual health physician Acute Call Date: 09/15/2021 Time: 10:37 AM Name: Stephanie Camp : 1955 Caller: Stephanie Relationship to self No chief complaint on file. HPI: Stephanie Camp is a 66 year old female that is calling [facility] Intake to report that since last night, +chills, +generalized body aches, low rade temp, 99.6, SOB with exertion, wears O2 at 2lpm continuously, unable to find her pulse ox. Slight cough/congestion with yellow to green phlegm, feels it is post nasal drip. Denies CP, -sinus/chest congestion, -headache, -sore throat, BS thismorning was 164, does not weigh self daily, edema to ble's baseline, denies abdominal bloating, appetite is good, sleeping well, wears CPAP at night and at naps, urinating wnl's, LBM was yesterday, denies any COVID exposure. Nursing Assessment: Patient's chief complaint for this call: Other, describe chills, aches, pain all over, low grade temp, SOB with exertion, (baseline) Symptom Assessment Onset of Symptoms: Less than 24 hours What makes symptom worse: na What makes symptom better: na What has the patient tried to treat the symptom: na Fall within a week of symptom onset: No Pain Has pain Pain level: 7 Location: generalized body aches Quality of Pain: aching Does the pain radiate: Yes Location(s) pain is radiating to: whole body Baseline Assessment Able to performing ADLs at baseline (walking, daily tasks, etc.): Yes Chief Complaint is related to a chronic condition: Unknown Patient prescribed oxygen? Yes, 2L/min, using as prescribed. Patient has been ordered DME equipment (assistive devices, respiratory equipment, etc.): Yes Describe DME devices: CPAP Patient is using DME device as directed: Yes Medication Reconciliation: (See medication list) Received flu shot this season: Yes Taking medication as ordered: No, not taking Magnesium, makes her sick to her stomach and constipated Medications ordered/taking to treat reason for call: Yes, PRN medication(s) tylenol/advil Heart failure symptoms: Unknown COPD exacerbation symptoms: No Reinforcement Education: Take all medications as directed Use saline nasal spray prn Take mucinex Use Vicks Vapor rub to chest Stay hydrated with clear liquids, dairy products produce mucous Take tylenol for headache prn Use cool mist humidifier 24/48h phone call follow ups addded Treatment/Plan: Level of call: Non-Acute Recommended treatment plan: Clinical advice given over the phone Call back instructions provided to patient. ROMEO Capps Chassis Wirer [facility] documented in this encounter Plan of Treatment Upcoming Encounters Date Type Specialty Care Team Description 09/16/2021 Scheduled Telephone [facility] And Controls Manager, [place] Hale [address] [place] [address] 09/17/2021 Scheduled Telephone [facility] And Controls Manager, Virginia Cisneros [address] [place] [address] 09/21/2021 Office Visit Nephrology Erik Lenz MD [address] [facility] [place] [place] [address] 10/05/2021 Office Visit Cardiology Rey Woodall MD [address] [place] [address] 10/05/2021 Office Visit Pharmacy [facility] [place] [address] [place] [address] 10/08/2021 Home Visit Family Medicine Magaly Morales, Community Health Occupational Health Manager [address] [place] [address] 10/08/2021 Office Visit Sleep Disorders Celsa Tafoya CRNP [address] [place] [address] 10/20/2021 Home Visit [facility] Vera Capellan RN [address] [place] [address] 01/21/2022 Office Visit Family Medicine Kevin Whiteside DO [address] [place] [address] Scheduled Procedures Name Priority Associated Diagnoses Date/Ti me COLONOSCOPY FLEXIBLE PROXIMAL DIAGNOSTIC Recall Colon cancer screening Health Maintenance Due Date Last Done Comments Depression Screening, Annual for Pts 12 and Over 06/12/2019 07/28/2020, 06/12/2018 Pneumococcal Vaccine: 65+ Years (2 of 2 - PPSV23) 2020 08/22/2009, 06/15/2006 DIABETES-HGBA1C EVERY 6 MONTHS 05/17/2021 11/17/2020, 01/23/2020, 11/07/2019, Additional history exists COVID-19 Vaccine (3 - Booster) 06/30/2021 12/29/2020, 12/18/2020 CKD GFR USE SMARTSET 70551 09/19/202103/20, 03/12/2021, 12/25/2020, Additional history exists BREAST CANCER SCREENING DISCUSSION YEARLY AGES 40-75 10/01/2021 10/01/2020, 07/10/2019, 06/23/2018, Additional history exists DIABETES-FOOT EXAM 01/14/2022 01/14/2021, 0 11/07/2019, 01/01/2019, Additional history exists CKD PHOS USE SMARTSET 26036 03/12/202202/24, 11/17/2020, 12/24/2019, Additional history exists DIABETES-URINE MICROALBUMIN EVERY 12 MONTHS 03/12/2022 03/12/2021, 03/12/2021, 12/24/2019, Additional history exists CKD HGB USE SMARTSET 59051 03/20/202203/20, 03/20/2021, 03/12/2021, Additional history exists DIABETES-EYE EXAM 04/14/2022 04/14/2021, , 04/05/2019, Additional history exists Zoster Vaccines Completed 05/08/2020, 10/27, 12/11/2015 Influenza Vaccine (FLU shot) Completed , 06/13/2020, 07/23/2019, Additional history exists MENINGOCOCCAL (MENACTRA/MENVEO) Aged Out No longer eligible based on patient's age to complete this topic documented as of this encounter Implants Not on filedocumented as of this encounter Advance Directives Documents on File Type Date Recorded Patient In Store Demonstrator Expl anation Advanced Directive Advanced Directive Advanced [...] Other Health Care Hayden r of Training Program Manager Princess Staplesfany Other Health Care Pow er of Training Program Manager Care Teams Asbestos Worker Helper Relationship Specialty Start Date End Date Kevin Whiteside, [address] [place] [address] PCP - General Family Medicine 05/01/18 documented as of this encounter
--- OUTSIDE RECORDS SUMMARY | 2023-06-01 04:53 | External Medical Summary | Summary of Care ---
Author Name Unknown Organization [facility] Address [place] [address] Care Team Providers Care Core Maker Helper Name Role Phone Kevin Whiteside DO Primary Care Provider Reason for Visit * Reason Onset Date Comments [facility]: Maintenance 09/17/2021 Encounter Details Date Type Department Care Team Description 09/17/2021 Scheduled Telephone [facility], [facility] [email or web address] [place] [address] Coordinator, [facility] [address] [place] [address] Allergies Active Allergy Reactions Severity Noted Date Comments Codeine 07/08/2014 hallucination Pollen 05/18/2019 Heparin 09/04/2009 Heparin Induced Thrombocytopenia Hydrocodone Neuro complications (Please comment) 07/28/2020 Empagliflozin Other (Please comment) Medium 05/17/2018 3 yeast infections in 6 weeks after starting Morphine And Related 09/16/1997 Hallucinations Tetanus Toxoid Other (Please comment) 06/15/2011 Passed out documented as of this encounter (statuses as of 09/17/2021) Medications Medication Sig Dispensed Refills Start Date [...] Cap 3 12/18/2019 Active DIURETIC TITRATION PLANIndications:Casting Molder 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 1 Each 0 04/08/2020 Active Blood Glucose Monitoring Suppl (IDOMOTICS ULTRA 2) w/Device KIT Use to test BG values 1 Kit 0 05/20/2020 Active Glucose Blood (Money On MobileTOUCH ULTRA BLUE) STRP Check sugars 3-4 times [...] ([facility]) Inject 60 Units under the [...] as of this encounter (statuses as of 09/17/2021) Active Problems Problem Noted Date Hypotension 12/19/2020 [...] 10/14/2014 Overview: ICD-10 update of inactive term [place] filter in place 08/19/2014 History of pulmonary embolus (PE) 2013 Statin intolerance 07/16/2014 HTN, goal below 130/80 02/22/2014 Venous insufficiency 02/07/2013 ELISSA (obstructive sleep apnea) 09/16/2011 Overview: CPAP 11 cwp Mild, AHI 11.3 but with significant nocturnal hypoxemia Dicks Postsurgical hypothyroidism 06/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 documented as of this encounter (statuses as of 09/17/2021) Resolved Problems Problem Noted Date Resolved Date [...] as of this encounter (statuses as of 09/17/2021) Immunizations Name Administration Dates Next Due COVID-19 mRNA, LNP-s, No Pre serve, 2-Dose Series ([employer]) 12/29/2020,12/18/2020 Pneumococcal Polysaccharide PPV23 (Pneumovax) 08/22/2009,06/15/2006 Seasonal [...] Telephone Encounter - Lisandra Thomas LPN - 09/17/2021 10:27 AM EST 48 hour follow up call. Spoke with Stephanie. She is feeling well. Back to baseline. Denies any symptoms of body aches or cough. Will call [facility] for any concerns. documented in this encounter Plan of Treatment Upcoming Encounters Date Type Specialty Care Team Description 09/21/2021 Office Visit Nephrology Erik Lenz MD [address] [place] [address] 10/05/2021 Office Visit Cardiology Rey Woodall MD [address] [facility] [place] [place] [address] 10/05/2021 Office Visit Pharmacy [facility] [place] [address] [facility] [place] [address] 10/08/2021 Home Visit Family Medicine Magaly Morales, Community Health Director Print [address] [place] [address] 10/08/2021 Office Visit Sleep Disorders Celsa Tafoya CRNP [address] [facility] [place] [address] 10/20/2021 Home Visit [facility] Vera Capellan, RN [address] [place] [address] 01/21/2022 Office Visit Family Medicine Kevin Whiteside DO [address] [place] [address] Scheduled Procedures Name Priority Associated Diagnoses Date/Ti [...] 07/28/2021 07/28/2020, 06/12/2018 CKD GFR USE SMARTSET 35332 09/19/202103/20, 03/12/2021, 12/25/2020, Additional history exists BREAST CANCER SCREENING DISCUSSION YEARLY AGES 40-75 10/01/2021 10/01/2020, 07/10/2019, 06/23/2018, Additional history exists DIABETES-FOOT EXAM 01/14/2022 01/14/2021, 0 11/07/2019, 01/01/2019, Additional history exists CKD PHOS USE SMARTSET 76485 03/12/202202/24, 11/17/2020, 12/24/2019, Additional history exists DIABETES-URINE MICROALBUMIN EVERY 12 MONTHS 03/12/2022 03/12/2021, 03/12/2021, 12/24/2019, Additional history exists CKD HGB USE SMARTSET 60615 03/20/202203/20, 03/20/2021, 03/12/2021, Additional history exists DIABETES-EYE [...] Documents on File Type Date Recorded Patient Benefits 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 Expl anation Advanced Directive Advanced Directive [...] Camp Other Health Care Hayden r of Post Framer Princess Allen Other Health Care Pow er of Post Framer Care Teams Core Maker Helper Relationship Specialty Start Date End Date Kevin Whiteside DO [address] [place] [address] PCP - General Family Medicine 05/01/18 documented as of this encounter
--- OUTSIDE RECORDS SUMMARY | 2023-06-01 04:53 | External Medical Summary | Summary of Care ---
Author Name Unknown Organization [place] [address] Care Team Providers Care Travel Consultant Name Role Phone Kevin Whiteside DO Primary Care Provider Encounter Details Date Type Department Care Team Description 09/20/2021 Scan Encounter [facility] [address] [place] [address] Kevin Whiteside DO [address] [facility] [place] [address] <No scans attached> Allergies Active Allergy Reactions Severity Noted Date Comments Codeine 07/08/2014 hallucination Pollen 05/18/2019 Heparin 09/04/2009 Heparin Induced Thrombocytopenia Hydrocodone Neuro complications (Please comment) 07/28/2020 Empagliflozin Other (Please comment) Medium 05/17/2018 3 yeast infections in 6 weeks after starting Morphine And Related 09/16/1997 Hallucinations Tetanus Toxoid Other (Please comment) 06/15/2011 Passed out documented as of this encounter (statuses as of 09/23/2021) Medications Medication Sig Dispensed Refills Start Date [...] Cap 3 12/18/2019 Active DIURETIC TITRATION PLANIndications:Grain Mixer 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 1 Each 0 04/08/2020 Active Blood Glucose Monitoring Suppl (Solantro SemiconductorTOUCH ULTRA 2) w/Device KIT Use to test [...] of 7.0%-8.0% ([facility]) Inject 60 Units under the [...] as of this encounter (statuses as of 09/23/2021) Active Problems Problem Noted Date Hypotension 12/19/2020 [...] as of this encounter (statuses as of 09/23/2021) Resolved Problems Problem Noted Date Resolved Date [...] as of this encounter (statuses as of 09/23/2021) Immunizations Name Administration Dates Next Due COVID-19 mRNA, LNP-s, No Pre serve, 2-Dose Series ([employer]) 12/29/2020,12/18/2020 Pneumococcal Polysaccharide PPV23 (Pneumovax) 08/22/2009,06/15/2006 Seasonal [...] Cardiology Rey Woodall MD [address] [place] [address] 10/05/2021 Office Visit Pharmacy [facility] [place] [address] [place] [address] 10/08/2021 Home Visit Family Medicine Magaly Morales, Community Health Pit Crane Operator [address] [place] [address] 10/08/2021 Office Visit Sleep Disorders Celsa Taofya CRNP [address] [place] [address] 10/20/2021 Home Visit [facility] Vera Capellan RN [address] [place] [address] 01/21/2022 Office Visit Family Medicine Kevin Whiteside DO [address] [place] [address] Scheduled Procedures Name Priority Associated Diagnoses Date/Ti [...] 07/28/2021 07/28/2020, 06/12/2018 CKD GFR USE SMARTSET 75994 09/19/202103/20, 03/12/2021, 12/25/2020, Additional history exists BREAST CANCER SCREENING DISCUSSION YEARLY AGES 40-75 10/01/2021 10/01/2020, 07/10/2019, 06/23/2018, Additional history exists DIABETES-FOOT EXAM 01/14/2022 01/14/2021, 0 11/07/2019, 01/01/2019, Additional history exists CKD PHOS USE SMARTSET 13081 03/12/202202/24, 11/17/2020, 12/24/2019, Additional history exists DIABETES-URINE MICROALBUMIN EVERY 12 MONTHS 03/12/2022 03/12/2021, 03/12/2021, 12/24/2019, Additional history exists CKD HGB USE SMARTSET 75773 03/20/202203/20, 03/20/2021, 03/12/2021, Additional history exists DIABETES-EYE [...] on File Type Date Recorded Patient Sales Review Clerk Expl anation Advanced Directive Advanced Directive [...] Camp Other Health Care Hayden r of Financial Systems Manager Princess Allen Other Health Care Pow er of Financial Systems Manager Care Teams Travel Consultant Relationship Specialty Start Date End Date Kevin Whiteside DO [address] [facility] [place] [address] PCP - General Family Medicine 05/01/18 documented as of this encounter
--- OUTSIDE RECORDS SUMMARY | 2023-06-01 04:53 | External Medical Summary | Summary of Care ---
Author Name Unknown Organization [facility] Address [place] [address] Care Team Providers Care Auto Research Engineer Name Role Phone Kevin Whiteside DO Primary Care Provider Reason for Visit * Reason Onset Date Comments [facility]: Maintenance 09/16/2021 Encounter Details Date Type Department Care Team Description 09/16/2021 Scheduled Telephone [facility], [facility] [address] [place] [address] Coordinator, [facility] [address] [place] [address] Allergies Active Allergy Reactions Severity Noted Date Comments Codeine 07/08/2014 hallucination Pollen 05/18/2019 Heparin 09/04/2009 Heparin Induced Thrombocytopenia Hydrocodone Neuro complications (Please comment) 07/28/2020 Empagliflozin Other (Please comment) Medium 05/17/2018 3 yeast infections in 6 weeks after starting Morphine And Related 09/16/1997 Hallucinations Tetanus Toxoid Other (Please comment) 06/15/2011 Passed out documented as of this encounter (statuses as of 09/16/2021) Medications Medication Sig Dispensed Refills Start Date [...] 90 Cap 3 12/18/2019 Active DIURETIC TITRATION PLANIndications:High School Director 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 1 Each 0 04/08/2020 Active Blood Glucose Monitoring Suppl (Zynga ULTRA 2) w/Device KIT Use to test BG values 1 Kit 0 05/20/2020 Active Glucose Blood (BoostervilleTOUCH ULTRA BLUE) STRP Check sugars 3-4 times [...] as of this encounter (statuses as of 09/16/2021) Active Problems Problem Noted Date Hypotension 12/19/2020 [...] 10/14/2014 Overview: ICD-10 update of inactive term [place] filter in place 08/19/2014 History of pulmonary embolus (PE) 2013 Statin intolerance 07/16/2014 HTN, goal below 130/80 02/22/2014 Venous insufficiency 02/07/2013 ELISSA (obstructive sleep apnea) 09/16/2011 Overview: CPAP 11 cwp Mild, AHI 11.3 but with significant nocturnal hypoxemia Dicks Postsurgical hypothyroidism 06/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 documented as of this encounter (statuses as of 09/16/2021) Resolved Problems Problem Noted Date Resolved Date [...] as of this encounter (statuses as of 09/16/2021) Immunizations Name Administration Dates Next Due COVID-19 mRNA, LNP-s, No Pre serve, 2-Dose Series (UserApp) 12/29/2020,12/18/2020 Pneumococcal Polysaccharide PPV23 (Pneumovax) 08/22/2009,06/15/2006 Seasonal [...] Miscellaneous Notes * Telephone Encounter - Lisandra Tohmas LPN - 09/16/2021 10:18 AM EST Follow up call re: URI and body aches. Spoke with Stephanie. She is feeling much better. Temp: 98, took ibuprofen 2 hours prior to temperature. Denies body aches today, back to baseline. Denies cough today. Breathing is at baseline. Will call for any changes/worsening of symptoms. Provided call back number . documented in this encounter Plan of Treatment Upcoming Encounters Date Type Specialty Care Team Description 09/17/2021 Scheduled Telephone [facility] Machine Operator, [place] Cisneros [address] [place] [address] 09/21/2021 Office Visit Nephrology Erik Lenz MD [address] [place] [address] 10/05/2021 Office Visit Cardiology Rey Woodall MD [address] [place] [address] 10/05/2021 Office Visit Pharmacy Danuta Ordaz [facility] [place] [address] [place] [address] 10/08/2021 Home Visit Family Medicine Magaly Morales, Community Health Manager [address] [place] [address] 10/08/2021 Office Visit Sleep Disorders Celsa Tafoya CRNP [address] [place] [address] [address] 10/20/2021 Home Visit [facility] Vera Capellan RN [address] [address] [address] 01/21/2022 Office Visit Family Medicine Kevin Whiteside DO [address] [place] [address] [address] Scheduled Procedures Name Priority Associated Diagnoses Date/Ti [...] 07/28/2021 07/28/2020, 06/12/2018 CKD GFR USE SMARTSET 16935 09/19/202103/20, 03/12/2021, 12/25/2020, Additional history exists BREAST CANCER SCREENING DISCUSSION YEARLY AGES 40-75 10/01/2021 10/01/2020, 07/10/2019, 06/23/2018, Additional history exists DIABETES-FOOT EXAM 01/14/2022 01/14/2021, 0 11/07/2019, 01/01/2019, Additional history exists CKD PHOS USE SMARTSET 92069 03/12/202202/24, 11/17/2020, 12/24/2019, Additional history exists DIABETES-URINE MICROALBUMIN EVERY 12 MONTHS 03/12/2022 03/12/2021, 03/12/2021, 12/24/2019, Additional history exists CKD HGB USE SMARTSET 83064 03/20/202203/20, 03/20/2021, 03/12/2021, Additional history exists DIABETES-EYE [...] Documents on File Type Date Recorded Patient Exit Booth Agent Expl anation Advanced Directive Advanced Directive [...] Camp Other Health Care Hayden r of Integrated Circuit Design Engineer Princess Staplesfany Other Health Care Pow er of Integrated Circuit Design Engineer Care Teams Auto Research Engineer Relationship Specialty Start Date End Date Kevin Whiteside DO [address] [facility] [place] [address] PCP - General Family Medicine 05/01/18 documented as of this encounter
--- OUTSIDE RECORDS SUMMARY | 2023-06-01 04:53 | External Medical Summary | Summary of Care ---
Author Name Unknown Organization [place] [address] Care Team Providers Care Fagot Maker Name Role Phone Kevin Whiteside DO Primary Care Provider Encounter Details Date Type Department Care Team Description 09/20/2021 Scan Encounter [facility] [address] [place] [address] Kevin Whiteside DO [address] 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 1 Each 0 04/08/2020 Active Blood Glucose Monitoring Suppl (Massive SolutionsTOUCH ULTRA 2) w/Device KIT Use to test [...] goal of 7.0%-8.0% ([facility]) Inject 60 Units under the [...] mRNA, LNP-s, No Pre serve, 2-Dose Series (Oculo Therapy) 12/29/2020,12/18/2020 Pneumococcal Polysaccharide PPV23 (Pneumovax) 08/22/2009,06/15/2006 Seasonal [...] Cardiology Rey Woodall MD [address] [place] [address] 10/05/2021 Office Visit Pharmacy Orlin Prailyn [facility] [place] [address] [place] [address] 10/08/2021 Home Visit Family Medicine Magaly Morales, Community Health Auto Body Technician [address] [place] [address] 10/08/2021 Office Visit Sleep Disorders Celsa Tafoya CRNP [address] [place] [address] [address] 10/20/2021 Home Visit [facility] Vera Capellan RN [address] [place] [address] [address] 01/21/2022 Office Visit Family Medicine Kevin Whiteside DO [address] [place] [address] [address] Scheduled Procedures Name Priority Associated Diagnoses Date/Ti [...] 07/28/2021 07/28/2020, 06/12/2018 CKD GFR USE SMARTSET 69911 09/19/202103/20, 03/12/2021, 12/25/2020, Additional history exists BREAST CANCER SCREENING DISCUSSION YEARLY AGES 40-75 10/01/2021 10/01/2020, 07/10/2019, 06/23/2018, Additional history exists DIABETES-FOOT EXAM 01/14/2022 01/14/2021, 0 11/07/2019, 01/01/2019, Additional history exists CKD PHOS USE SMARTSET 04878 03/12/202202/24, 11/17/2020, 12/24/2019, Additional history exists DIABETES-URINE MICROALBUMIN EVERY 12 MONTHS 03/12/2022 03/12/2021, 03/12/2021, 12/24/2019, Additional history exists CKD HGB USE SMARTSET 24521 03/20/202203/20, 03/20/2021, 03/12/2021, Additional history exists DIABETES-EYE [...] on File Type Date Recorded Patient Claims Service Adjustor Expl anation Advanced Directive Advanced Directive Advanced [...] Camp Other Health Care Hayden r of Bi Report Developer Princess Allen Other Health Care Pow er of Bi Report Developer Care Teams Fagot Maker Relationship Specialty Start Date End Date Kevin Whiteside DO [address] [facility] [place] [address] PCP - General Family Medicine 05/01/18 documented as of this encounter
--- OUTSIDE RECORDS SUMMARY | 2023-06-01 04:53 | External Medical Summary | Summary of Care ---
Author Name Unknown Organization [place] [address] Care Team Providers Care Club Steward Name Role Phone Kevin Whiteside DO Primary Care Provider Encounter Details Date Type Department Care Team Description 09/21/2021 Scan Encounter [facility] [address] [place] [address] Kevin Whiteside DO [address] [facility] [place] [address] <No scans attached> Allergies Active Allergy Reactions Severity Noted Date Comments Codeine 07/08/2014 hallucination Pollen 05/18/2019 Heparin 09/04/2009 Heparin Induced Thrombocytopenia Hydrocodone Neuro complications (Please comment) 07/28/2020 Empagliflozin Other (Please comment) Medium 05/17/2018 3 yeast infections in 6 weeks after starting Morphine And Related 09/16/1997 Hallucinations Tetanus Toxoid Other (Please comment) 06/15/2011 Passed out documented as of this encounter (statuses as of 09/22/2021) Medications Medication Sig Dispensed Refills Start Date [...] 90 Cap 3 12/18/2019 Active DIURETIC TITRATION PLANIndications:Lab Nurse 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 1 Each 0 04/08/2020 Active Blood Glucose Monitoring Suppl (TypekitTOUCH ULTRA 2) w/Device KIT Use to test [...] of 7.0%-8.0% ([facility]) Inject 60 Units under the [...] as of this encounter (statuses as of 09/22/2021) Active Problems Problem Noted Date Hypotension 12/19/2020 [...] as of this encounter (statuses as of 09/22/2021) Resolved Problems Problem Noted Date Resolved Date [...] as of this encounter (statuses as of 09/22/2021) Immunizations Name Administration Dates Next Due COVID-19 mRNA, LNP-s, No Pre serve, 2-Dose Series (Octmami) 12/29/2020,12/18/2020 Pneumococcal Polysaccharide PPV23 (Pneumovax) 08/22/2009,06/15/2006 Seasonal [...] Cardiology Rey Woodall MD [address] [place] [address] 10/05/2021 Office Visit Pharmacy Orlin Wiailyn [facility] [place] [address] [place] [address] 10/08/2021 Home Visit Family Medicine Magaly Morales, Community Health Sticker On [address] [place] [address] 10/08/2021 Office Visit Sleep Disorders Celsa Tafoya CRNP [address] [place] [address] [address] 10/20/2021 Home Visit [facility] Vera Capellan RN [address] [place] [address] [address] 01/21/2022 Office Visit Family Medicine Kevin Whiteside DO [address] [place] [address] [address] Scheduled Procedures Name Priority Associated Diagnoses Date/Ti [...] 07/28/2021 07/28/2020, 06/12/2018 CKD GFR USE SMARTSET 04816 09/19/202103/20, 03/12/2021, 12/25/2020, Additional history exists BREAST CANCER SCREENING DISCUSSION YEARLY AGES 40-75 10/01/2021 10/01/2020, 07/10/2019, 06/23/2018, Additional history exists DIABETES-FOOT EXAM 01/14/2022 01/14/2021, 0 11/07/2019, 01/01/2019, Additional history exists CKD PHOS USE SMARTSET 07072 03/12/202202/24, 11/17/2020, 12/24/2019, Additional history exists DIABETES-URINE MICROALBUMIN EVERY 12 MONTHS 03/12/2022 03/12/2021, 03/12/2021, 12/24/2019, Additional history exists CKD HGB USE SMARTSET 07828 03/20/202203/20, 03/20/2021, 03/12/2021, Additional history exists DIABETES-EYE [...] Documents on File Type Date Recorded Patient Green Building Engineer Expl anation Advanced Directive Advanced Directive [...] Camp Other Health Care Hayden r of Homeland Security Program Specialist Princess Staplesfany Other Health Care Pow er of Homeland Security Program Specialist Care Teams Club Steward Relationship Specialty Start Date End Date Kevin Whiteside, [address] [place] [address] PCP - General Family Medicine 05/01/18 documented as of this encounter
--- OUTSIDE RECORDS SUMMARY | 2023-06-01 04:53 | External Medical Summary | Summary of Care ---
Author Name Unknown Organization [place] [address] Care Team Providers Care Medical Social Consultant Name Role Phone Kevin Whiteside DO Primary Care Provider Encounter Details Date Type Department Care Team Description 09/20/2021 Scan Encounter [facility] [address] [place] [address] Kevin Whiteside DO [address] [facility] [place] [address] <No scans attached> Allergies Active Allergy Reactions Severity Noted Date Comments Codeine 07/08/2014 hallucination Pollen 05/18/2019 Heparin 09/04/2009 Heparin Induced Thrombocytopenia Hydrocodone Neuro complications (Please comment) 07/28/2020 Empagliflozin Other (Please comment) Medium 05/17/2018 3 yeast infections in 6 weeks after starting Morphine And Related 09/16/1997 Hallucinations Tetanus Toxoid Other (Please comment) 06/15/2011 Passed out documented as of this encounter (statuses as of 09/21/2021) Medications Medication Sig Dispensed Refills Start Date [...] 0 04/08/2020 Active Blood Glucose Monitoring Suppl (AnTech LtdTOUCH ULTRA 2) w/Device KIT Use to test [...] ([facility]) Inject 60 Units under the skin [...] as of this encounter (statuses as of 09/21/2021) Active Problems Problem Noted Date Hypotension 12/19/2020 [...] as of this encounter (statuses as of 09/21/2021) Resolved Problems Problem Noted Date Resolved Date [...] as of this encounter (statuses as of 09/21/2021) Immunizations Name Administration Dates Next Due COVID-19 mRNA, LNP-s, No Pre serve, 2-Dose Series (Plaxica) 12/29/2020,12/18/2020 Pneumococcal Polysaccharide PPV23 (Pneumovax) 08/22/2009,06/15/2006 Seasonal [...] Visit Nephrology Erik Lenz MD [address] [place] [address] 10/05/2021 Office Visit Cardiology Rey Woodall MD [address] [place] [address] 10/05/2021 Office Visit Pharmacy [facility] [place] [address] [place] [address] 10/08/2021 Home Visit Family Medicine Magaly Morales, Community Health Box Office Agent [address] [place] [address] 10/08/2021 Office Visit Sleep Disorders Celsa Tafoya CRNP [address] [place] [address] [address] 10/20/2021 Home Visit [facility] Vera Capellan RN [address] [place] [address] [address] 01/21/2022 Office Visit Family Medicine Kevin Whiteside DO [address] [place] [address] [address] Scheduled Procedures Name Priority Associated Diagnoses Date/Ti [...] 07/28/2021 07/28/2020, 06/12/2018 CKD GFR USE SMARTSET 37308 09/19/202103/20, 03/12/2021, 12/25/2020, Additional history exists BREAST CANCER SCREENING DISCUSSION YEARLY AGES 40-75 10/01/2021 10/01/2020, 07/10/2019, 06/23/2018, Additional history exists DIABETES-FOOT EXAM 01/14/2022 01/14/2021, 0 11/07/2019, 01/01/2019, Additional history exists CKD PHOS USE SMARTSET 81932 03/12/202202/24, 11/17/2020, 12/24/2019, Additional history exists DIABETES-URINE MICROALBUMIN EVERY 12 MONTHS 03/12/2022 03/12/2021, 03/12/2021, 12/24/2019, Additional history exists CKD HGB USE SMARTSET 86373 03/20/202203/20, 03/20/2021, 03/12/2021, Additional history exists DIABETES-EYE [...] Documents on File Type Date Recorded Patient Bung Remover Expl anation Advanced Directive Advanced Directive Advanced [...] Camp Other Health Care Hayden r of Roughing Mill Operator Princess Staplesfany Other Health Care Pow er of Roughing Mill Operator Care Teams Medical Social Consultant Relationship Specialty Start Date End Date Kevin Whiteside DO [address] [place] [address] [address] PCP - General Family Medicine 05/01/18 documented as of this encounter
--- OUTSIDE RECORDS SUMMARY | 2023-06-01 04:53 | External Medical Summary | Summary of Care ---
Author Name Unknown Organization [facility] Address [place] [address] Care Team Providers Care Tire Layer Name Role Phone Kevin Whiteside DO Primary Care Provider Reason for Visit * Reason Onset Date Comments [facility]: Maintenance 09/23/2021 Encounter Details Date Type Department Care Team Description 09/23/2021 Telephone [facility], [facility] [address] [facility] [place] [address] [facility], Nurse [facility] [address] [facility] [place] [address] [facility]: Maintenance Allergies Active Allergy [...] Cap 3 12/18/2019 Active DIURETIC TITRATION PLANIndications:Dry Food Products Mixer 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 1 Each 0 04/08/2020 Active Blood Glucose Monitoring Suppl (Digital Karma ULTRA 2) w/Device KIT Use to test BG values 1 Kit 0 05/20/2020 Active Glucose Blood (HydroBuilder.comTOUCH ULTRA BLUE) STRP Check sugars 3-4 times [...] 10/14/2014 Overview: ICD-10 update of inactive term [place] filter in place 08/19/2014 History of pulmonary [...] mRNA, LNP-s, No Pre serve, 2-Dose Series ([employer]ics [employer]ductor) 12/29/2020,12/18/2020 Pneumococcal Polysaccharide PPV23 (Pneumovax) 08/22/2009,06/15/2006 [...] Telephone Encounter - Karyn Clarke LPN - 09/23/2021 4:01 PM EST TT from [facility] Patient discharging home today Scheduled Brooke Jose tomorrow, 09/24 at 130pm for brad#1 PCP on 09/29 Cards 10/05 documented in this encounter Plan of Treatment Upcoming Encounters Date Type Specialty Care Team Description 09/24/2021 Home Visit [facility] Brooke Jose RN [address] [address] 09/29/2021 Office Visit Family Medicine Kevin Whiteside DO [address] [address] 10/05/2021 Office Visit Cardiology Rey Woodall MD [address] [address] 10/05/2021 Office Visit Pharmacy Danuta Ordaz [address] [address] 10/08/2021 Home Visit Family Medicine Magaly Morales, Community Health Wire Charger [address] [place] [address] 10/08/2021 Office Visit Sleep Disorders Celsa Tafoya CRNP [address] [address] 10/20/2021 Home Visit [facility] Vera Capellan RN [address] [address] [address] 01/21/2022 Office Visit Family Medicine Kevin Whiteside DO [address] [place] [address] Scheduled Procedures Name Priority Associated Diagnoses Date/Ti [...] 07/28/2021 07/28/2020, 06/12/2018 CKD GFR USE SMARTSET 04607 09/19/202103/20, 03/12/2021, 12/25/2020, Additional history exists BREAST CANCER SCREENING DISCUSSION YEARLY AGES 40-75 10/01/2021 10/01/2020, 07/10/2019, 06/23/2018, Additional history exists DIABETES-FOOT EXAM 01/14/2022 01/14/2021, 0 11/07/2019, 01/01/2019, Additional history exists CKD PHOS USE SMARTSET 83475 03/12/202202/24, 11/17/2020, 12/24/2019, Additional history exists DIABETES-URINE MICROALBUMIN EVERY 12 MONTHS 03/12/2022 03/12/2021, 03/12/2021, 12/24/2019, Additional history exists CKD HGB USE SMARTSET 22504 03/20/202203/20, 03/20/2021, 03/12/2021, Additional history exists DIABETES-EYE [...] Documents on File Type Date Recorded Patient Cruise Agent Expl anation Advanced Directive Advanced Directive [...] Camp Other Health Care Hayden r of Router Operator Princess Staplesfany Other Health Care Pow er of Router Operator Care Teams Tire Layer Relationship Specialty Start Date End Date Kevin Whiteside DO [address] [facility] [place] [address] PCP - General Family Medicine 05/01/18 documented as of this encounter
--- OUTSIDE RECORDS SUMMARY | 2023-06-01 04:54 | External Medical Summary | Summary of Care ---
Author Name Unknown Organization [place] [address] Care Team Providers Care Visual Merchandiser Name Role Phone Kevin Whiteside DO Primary Care Provider Reason for Visit * Reason Comments [facility]: Maintenance Encounter Details Date Type Department Care Team Description 09/08/2021 Home Visit [facility], [facility] [address] [facility] [place] [address] Vera Capellan RN [address] [facility] [place] [address] Benign hypertensive heart and kidney disease with [...] as of this encounter (statuses as of 09/08/2021) Medications Medication Sig Dispensed Refills Start Date [...] 90 Cap 3 12/18/2019 Active DIURETIC TITRATION PLANIndications: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 1 Each 0 04/08/2020 Active Blood Glucose Monitoring Suppl (AOBiomeUCH ULTRA 2) w/Device KIT Use to test [...] at bedtime. 90 Cap 1 02/24/2021 Active Cyclobenzaprine HCl 10 MG Oral Tablet (Flexeril)Indication s:Spinal stenosis of lumbar region without neurogenic claudication,Lumbar radiculopathy TAKE ONE TABLET BY MOUTH AT BEDTIME NEEDED FOR SPASM 30 Tab 0 03/02/2021 Active Nerve Pain Relief Sublingual Tablet SublingualIndication [...] hronic diastolic congestive heart failure ([facility]) Take 0.5 Tabs by mouth 2 times [...] Pain, Severe. 90 Tab 0 07/20/2021 Active clonazePAM 0.5 MG Oral Tablet (KlonoPIN)Indication s:Anxiety state TAKE ONE TABLET BY MOUTH TWICE DAILY 60 Tab 0 07/27/2021 Active Trulicity 4.5 MG/0.5ML Subcutaneous Solution Pen-injector [...] for Nausea. 30 Tablet 6 08/31/2021 Active documented as of this encounter (statuses as of 09/08/2021) Active Problems Problem Noted Date Hypotension 12/19/2020 [...] as of this encounter (statuses as of 09/08/2021) Resolved Problems Problem Noted Date Resolved Date [...] as of this encounter (statuses as of 09/08/2021) Immunizations Name Administration Dates Next Due COVID-19 [...] Sign Reading Time Taken Comments Blood Pressure 118/60 09/08/2021 10:30 AM EST Pulse 96 09/08/2021 10:30 AM EST Temperature 36.6 C (97.8 F) 09/08/2021 1 0:30 AM EST Respiratory Rate 18 09/08/2021 10:3 0 AM EST Oxygen Saturation 93% 09/08/2021 10: 38 AM EST oxygen on at 2 l/min via nc Inhaled Oxygen Concentration - - Weight - - Height - - Body Mass Index - - documented in this encounter Progress Notes * Vera Capellan RN - 09/08/2021 10:00 AM EST [facility] Pharmacology Teacher Visit Date: 09/08/2021 Time: 10:35 AM Name: Stephanie Camp : 1955 Current Concerns: Pt seen for return RNCM visit Continues to go to outpatient PT 2x a week at [facility] States she is going to cancel today d/t pain of left knee - this is chronic but she is not a candidate for surgery, per insurance - will not pay (per pt report) She has tried topical and oral pain relievers with little relief Blood sugars have been ranging in the mid 100's - she reports she has had a few in the upper 200's Pt checks 3-4x a day Had back injection last month and reports her pain has improved Wt was up to 345 lbs at doctor's office last week - pt took extra diuretic and it had come down Pulse ox was 82-84% at rest on room air Pt put on her oxygen at 2 l/min via NC and improved to 93% Educated on wearing more to keep pulse ox > 90% Pt reports she has fluid in her inner ears and saw MD but unable to take steroids for it and "not much else than can be done" Had covid swab and was negative Pt reports she hears "swishing" in her ears at times and sometimes has dizziness but denies pain Physical Exam: BP 118/60 | Pulse 96 | Temp 36.6 C (97.8 F) | Resp 18 | LMP 03/11/2003 | SpO2 93% Comment: oxygen on at 2 l/min via nc Pain 10 Physical Exam Constitutional: General: She is not in acute distress. Appearance: She is obese. HENT: Nose: Nose normal. Cardiovascular: Rate and Rhythm: Normal rate and regular rhythm. Pulses: Normal pulses. Heart sounds: Normal heart sounds. Pulmonary: Effort: Pulmonary effort is normal. Breath sounds: Normal breath sounds. Abdominal: General: Bowel sounds are normal. There is distension (baseline). Palpations: Abdomen is soft. Musculoskeletal: Right lower [...] No change in living situation Denies falls Advanced Care Planning: POLST. Patient's Goals of Care: 1. Less pain 2. Walk better 3. Stay out of [...] for fluid overload-take only as advised DRY [id number] as of 03/24/21 - does not weight self daily Home Interventions Provided: Home Intervention: Other; Evaluation Reinforced current Plan of Care, including self-management and medication regimen Patient's 'Red Flags': 1. Worsening SOB 2. Increased edema/abd bloating 3. Fall w/ injury Patient Needs to Remember: Call [facility] at with any new or worsening health concerns or problems, red flag symptoms. Referrals Needed: Other none Follow Up: Patient encouraged to call the intake phone number for all urgent but not emergent issues. Is the patient new to [facility] within the last 30 days? No, Assess appropriateness for upcoming telehealth visits. Cancel telehealth visits & schedule home visit with care field marketing team leader(s)as indicated. Provider is in agreement with Plan of Care: Yes Scheduled to follow up with patient in 3 weeks with LES and 3 weeks after with RNCM. Vera Capellan RN 09/08/2021 10:35 AM documented in this encounter Plan of Treatment Upcoming Encounters Date Type Specialty Care Team Description 09/21/2021 Office Visit Nephrology Erik Lenz MD [address] [facility] [place] [place] [address] 10/05/2021 Office Visit Cardiology Rey Woodall MD [address] [place] [address] 10/05/2021 Office Visit [facility]acy [facility] [place] [address] [place] [address] 10/08/2021 Home Visit Family Medicine Magaly Morales, Community Health Acid Pumper [address] [place] [address] 10/20/2021 Home Visit [facility] Vera Capellan, RN [address] [place] [address] 01/21/2022 Office Visit Family Medicine Kevin Whiteside DO [address] [place] [address] Scheduled Procedures Name Priority Associated Diagnoses Date/Ti me COLONOSCOPY FLEXIBLE PROXIMAL DIAGNOSTIC Recall Colon cancer screening Health Maintenance Due Date Last Done Comments Pneumococcal Vaccine: 65+ Years (2 of 2 - PPSV23) 2020 08/22/2009, 06/15/2006 DIABETES-HGBA1C EVERY 6 MONTHS 05/17/2021 11/17/2020, 01/23/2020, 11/07/2019, Additional history exists COVID-19 Vaccine (3 - Booster) 06/30/2021 12/29/2020, 12/18/2020 CKD GFR USE SMARTSET 22325 09/19/202103/20, 03/12/2021, 12/25/2020, Additional history exists BREAST CANCER SCREENING DISCUSSION YEARLY AGES 40-75 10/01/2021 10/01/2020, 07/10/2019, 06/23/2018, Additional history exists DIABETES-FOOT EXAM 01/14/2022 01/14/2021, 0 11/07/2019, 01/01/2019, Additional history exists CKD PHOS USE SMARTSET 41820 03/12/202202/24, 11/17/2020, 12/24/2019, Additional history exists DIABETES-URINE MICROALBUMIN EVERY 12 MONTHS 03/12/2022 03/12/2021, 03/12/2021, 12/24/2019, Additional history exists CKD HGB USE SMARTSET 29823 03/20/202203/20, 03/20/2021, 03/12/2021, Additional history exists DIABETES-EYE EXAM 04/14/2022 04/14/2021, , 04/05/2019, Additional history exists *DEPRESSION SCREENING,ANNUAL FOR PTS 12 AND OVER Addressed 06/12/2018 Overridden with the intention of not completing the topic Zoster Vaccines Completed 05/08/2020, 10/27, 12/11/2015 Influenza Vaccine (FLU shot) Completed 07/20/2021, 06/13/2020, 07/23/2019, Additional history exists MENINGOCOCCAL (MENACTRA/MENVEO) [...] on File Type Date Recorded Patient Sales Attendant Expl anation Advanced Directive Advanced Directive [...] Camp Other Health Care Hayden r of Professor Computer Science Princess Other Health Care Pow er of Professor Computer Science Care Teams Visual Merchandiser Relationship Specialty Start Date End Date Kevin Whiteside DO [address] [place] [address] PCP - General Family Medicine 05/01/18 documented as of this encounter
--- OUTSIDE RECORDS SUMMARY | 2023-06-01 04:54 | External Medical Summary | Summary of Care ---
Author Name Unknown Organization [place] [address] Care Team Providers Care Logistics Lead Name Role Phone Migue Whiteside DO Primary Care Provider Reason for Visit * Reason Onset Date Comments Medication Refill 09/09/2021 Encounter Details Date Type Department Care Team Description 09/09/2021 Refill [facility] [address] [place] [address] [...] as of this encounter (statuses as of 09/10/2021) Medications Medication Sig Dispensed Refills Start Date [...] 0 04/08/2020 Active Blood Glucose Monitoring Suppl ([employer] ULTRA 2) w/Device KIT Use to test BG values 1 Kit 0 05/20/2020 Active Glucose Blood (VG Life SciencesTOUCH ULTRA BLUE) STRP Check sugars 3-4 times daily, E11.9 400 Strip 3 05/22/2020 Active clobetasol propionate (TEMOVATE) 0.05 % creamIndications:Kalee [...] 08/31/2021 Levothyroxine Sodium 50 MCG Oral Tablet (Levoxyl)Indication [...] a day. 60 Tablet 0 09/10/2021 Active clonazePAM 0.5 MG Oral Tablet (KlonoPIN)Indicatio ns:Anxiety state TAKE ONE TABLET BY MOUTH TWICE DAILY 60 Tab 0 07/27/2021 Discontinu ed(Refill) documented as of this encounter (statuses as of 09/10/2021) Active Problems Problem Noted Date Hypotension 12/19/2020 [...] 10/14/2014 Overview: ICD-10 update of inactive term Keene filter in place 08/19/2014 History of pulmonary embolus (PE) 2013 Statin intolerance 07/16/2014 HTN, goal below 130/80 02/22/2014 Venous insufficiency 02/07/2013 ELISSA (obstructive sleep apnea) 09/16/2011 Overview: CPAP 11 cwp Mild, AHI 11.3 but with significant nocturnal hypoxemia Dicks Postsurgical hypothyroidism 06/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 documented as of this encounter (statuses as of 09/10/2021) Resolved Problems Problem Noted Date Resolved Date [...] as of this encounter (statuses as of 09/10/2021) Immunizations Name Administration Dates Next Due COVID-19 [...] Telephone Encounter - Migue Whiteside DO - 09/10/2021 8:25 AM EST Signed Prescriptions: Disp Refills clonazePAM 0.5 MG Oral Tablet (KlonoPIN) 60 Tab*0 Sig: Take 1 Tablet by mouth 2 times a day. Authorizing Provider: MIGUE WHITESIDE * Telephone Encounter - Stephanie Cook, MED ASSIST - 09/10/2021 8:10 AM EST Pending Prescriptions: Disp Refills clonazePAM 0.5 MG Oral Tablet (KlonoPIN) 60 Tab*0 Sig: Take 1 Tablet by mouth 2 times a day. documented in this encounter Plan of Treatment Upcoming Encounters Date Type Specialty Care Team Description 09/21/2021 Office Visit Nephrology Erik Lenz MD [address] [place] [address] 10/05/2021 Office Visit Cardiology Rey Woodall MD [address] [place] [address] 10/05/2021 Office Visit Pharmacy [facility] [place] [address] [place] [address] 10/08/2021 Home Visit Family Medicine Magaly Morales, Community Health Retail Assistant [address] [place] [address] 10/20/2021 Home Visit [facility] Vera Capellan RN [address] [place] [address] 01/21/2022 Office Visit Family Medicine Migue Whiteside DO [address] [place] [address] Scheduled Procedures Name Priority Associated Diagnoses Date/Ti me COLONOSCOPY FLEXIBLE PROXIMAL DIAGNOSTIC Recall Colon cancer screening Health Maintenance Due Date Last Done Comments Pneumococcal Vaccine: 65+ Years (2 of 2 - PPSV23) 2020 08/22/2009, 06/15/2006 DIABETES-HGBA1C EVERY 6 MONTHS 05/17/2021 11/17/2020, 01/23/2020, 11/07/2019, Additional history exists COVID-19 Vaccine (3 - Booster) 06/30/2021 12/29/2020, 12/18/2020 CKD GFR USE SMARTSET 60647 09/19/202103/20, 03/12/2021, 12/25/2020, Additional history exists BREAST CANCER SCREENING DISCUSSION YEARLY AGES 40-75 10/01/2021 10/01/2020, 07/10/2019, 06/23/2018, Additional history exists DIABETES-FOOT EXAM 01/14/2022 01/14/2021, 0 11/07/2019, 01/01/2019, Additional history exists CKD PHOS USE SMARTSET 94635 03/12/202202/24, 11/17/2020, 12/24/2019, Additional history exists DIABETES-URINE MICROALBUMIN EVERY 12 MONTHS 03/12/2022 03/12/2021, 03/12/2021, 12/24/2019, Additional history exists CKD HGB USE SMARTSET 90000 03/20/202203/20, 03/20/2021, 03/12/2021, Additional history exists DIABETES-EYE [...] on File Type Date Recorded Patient Chief Orthoptist Expl anation Advanced Directive Advanced Directive Advanced [...] Camp Other Health Care Hayden r of Women'S Soccer Coach Princess Staplesfany Other Health Care Pow er of Women'S Soccer Coach Care Teams Logistics Lead Relationship Specialty Start Date End Date Migue Whiteside DO [address] [facility] [place] [address] PCP - General Family Medicine 05/01/18 documented as of this encounter
--- OUTSIDE RECORDS SUMMARY | 2023-06-01 04:54 | External Medical Summary | Summary of Care ---
Author Name Unknown Organization [place] [address] Care Team Providers Care Program Support Assistant Name Role Phone Kevin Whiteside DO Primary Care Provider Reason for Visit * Reason Onset Date Comments COVID-19 Screening 09/01/2021 Encounter Details Date Type Department Care Team Description 09/01/2021 Telephone COVID19 Screening [facility] DEPT CLOSED 07/07/21 [address] [place] [id number], Automated Provider COVID-19 Screening Allergies Active Allergy Reactions Severity Noted Date Comments Codeine 07/08/2014 hallucination Pollen 05/18/2019 Heparin 09/04/2009 Heparin Induced Thrombocytopenia Hydrocodone Neuro complications (Please comment) 07/28/2020 Empagliflozin Other (Please comment) Medium 05/17/2018 3 yeast infections in 6 weeks after starting Morphine And Related 09/16/1997 Hallucinations Tetanus Toxoid Other (Please comment) 06/15/2011 Passed out documented as of this encounter (statuses as of 09/02/2021) Medications Medication Sig Dispensed Refills Start Date [...] 90 Cap 3 12/18/2019 Active DIURETIC TITRATION PLANIndications: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 1 Each 0 04/08/2020 Active Blood Glucose Monitoring Suppl ([employer]™TOUCH ULTRA 2) w/Device KIT Use to test BG values 1 Kit 0 05/20/2020 Active Glucose Blood (ONETOUCH ULTRA BLUE) STRP Check sugars 3-4 times daily, E11.9 400 Strip 3 05/22/2020 Active clobetasol propionate (TEMOVATE) 0.05 % creamIndications:Lic hen planus Apply to rash on the hands and dorsal feet twice daily x 1 week, then as needed for flares. 30 g 1 06/03/2020 Active BD Pen Needle Short U/F 31G X 8 MM (Insulin Pen Needle) Use 5 times daily with insulin 200 Each 11 06/27/2020 Active Magnesium Oxide 400 (241.3 Mg) MG [...] of 7.0%-8.0% ([facility]) Inject 60 Units under the skin [...] as of this encounter (statuses as of 09/02/2021) Active Problems Problem Noted Date Hypotension 12/19/2020 [...] 10/14/2014 Overview: ICD-10 update of inactive term Gibson filter in place 08/19/2014 History of pulmonary embolus (PE) 2013 Statin intolerance 07/16/2014 HTN, goal below 130/80 02/22/2014 Venous insufficiency 02/07/2013 ELISSA (obstructive sleep apnea) 09/16/2011 Overview: CPAP 11 cwp Mild, AHI 11.3 but with significant nocturnal hypoxemia Dicks Postsurgical hypothyroidism 06/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 documented as of this encounter (statuses as of 09/02/2021) Resolved Problems Problem Noted Date Resolved Date [...] as of this encounter (statuses as of 09/02/2021) Immunizations Name Administration Dates Next Due COVID-19 mRNA, LNP-s, No Pre serve, 2-Dose Series ([employer]) 12/29/2020,12/18/2020 Pneumococcal Polysaccharide PPV23 (Pneumovax) 08/22/2009,06/15/2006 Seasonal [...] Notes * Telephone Encounter - Covid Results [facility] - 09/02/2021 12:52 PM EST Outreach Attempts IVR Call Sep 01 2021 9:20AM Voicemail - Voicemail IVR Message: Marilou Brown. This is [employer] calling to let you know you have test results available. You can access this result in your [employer] account under 'Test & Lab Results'. If you are not enrolledin [employer], you can create an account by going to [email or web address]. You can also call back at [phone] or we will attempt to reach you later today. documented in this encounter Plan of Treatment Upcoming Encounters Date Type Specialty Care Team Description 09/08/2021 Home Visit [facility] Vera Capellan RN [address] [place] [address] 09/21/2021 Office Visit Nephrology Erik Lenz MD [address] [place] [address], [place] [address] 10/05/2021 Office Visit Cardiology Rey Woodall MD [address] [place] [address] 10/05/2021 Office Visit Pharmacy [facility] [place] [address] [place] [address] 10/08/2021 Home Visit Family Medicine Magaly Morales, Community Health Presentation Designer [address] [facility] [address] 01/21/2022 Office Visit Family Medicine Kevin Whiteside DO [address] [place] [address] Scheduled Procedures Name Priority Associated Diagnoses Date/Ti me COLONOSCOPY FLEXIBLE PROXIMAL DIAGNOSTIC Recall Colon cancer screening Health Maintenance Due Date Last Done Comments Pneumococcal Vaccine: 65+ Years (2 of 2 - PPSV23) 2020 08/22/2009, 06/15/2006 DIABETES-HGBA1C EVERY 6 MONTHS 05/17/2021 11/17/2020, 01/23/2020, 11/07/2019, Additional history exists COVID-19 Vaccine (3 - Booster) 06/30/2021 12/29/2020, 12/18/2020 CKD GFR USE SMARTSET 30152 09/19/202103/20, 03/12/2021, 12/25/2020, Additional history exists BREAST CANCER SCREENING DISCUSSION YEARLY AGES 40-75 10/01/2021 10/01/2020, 07/10/2019, 06/23/2018, Additional history exists DIABETES-FOOT EXAM 01/14/2022 01/14/2021, 0 11/07/2019, 01/01/2019, Additional history exists CKD PHOS USE SMARTSET 09017 03/12/202202/24, 11/17/2020, 12/24/2019, Additional history exists DIABETES-URINE MICROALBUMIN EVERY 12 MONTHS 03/12/2022 03/12/2021, 03/12/2021, 12/24/2019, Additional history exists CKD HGB USE SMARTSET 60515 03/20/202203/20, 03/20/2021, 03/12/2021, Additional history exists DIABETES-EYE [...] on File Type Date Recorded Patient Retail 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 Expl anation Advanced Directive Advanced Directive [...] Camp Other Health Care Hayden r of Pari Mutuel Clerk Princess Staplesfany Other Health Care Pow er of Pari Mutuel Clerk Care Teams Program Support Assistant Relationship Specialty Start Date End Date Kevin Whiteside DO [address] [place] [address] PCP - General Family Medicine 05/01/18 documented as of this encounter
--- OUTSIDE RECORDS SUMMARY | 2023-06-01 04:54 | External Medical Summary | Summary of Care ---
Author Name Unknown Organization [place] [address] Care Team Providers Care Director Of Market Intelligence Name Role Phone Kevin Whiteside DO Primary Care Provider Reason for Visit * Reason Onset Date Comments COVID-19 Screening 09/03/2021 Encounter Details Date Type Department Care Team Description 09/03/2021 Telephone COVID19 Screening [facility] DEPT CLOSED 07/07/21 [address] [place] [address] [id number], Automated Provider COVID-19 Screening Allergies Active Allergy Reactions Severity Noted Date Comments Codeine 07/08/2014 hallucination Pollen 05/18/2019 Heparin 09/04/2009 Heparin Induced Thrombocytopenia Hydrocodone Neuro complications (Please comment) 07/28/2020 Empagliflozin Other (Please comment) Medium 05/17/2018 3 yeast infections in 6 weeks after starting Morphine And Related 09/16/1997 Hallucinations Tetanus Toxoid Other (Please comment) 06/15/2011 Passed out documented as of this encounter (statuses as of 09/04/2021) Medications Medication Sig Dispensed Refills Start Date [...] 90 Cap 3 12/18/2019 Active DIURETIC TITRATION PLANIndications:Messaging Architect 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 1 Each 0 04/08/2020 Active Blood Glucose Monitoring Suppl (C3NanoTOUCH ULTRA 2) w/Device KIT Use to test [...] [facility] Inject 60 Units under the skin daily. [...] [facility]) Inject 40 units with meals + [...] as of this encounter (statuses as of 09/04/2021) Active Problems Problem Noted Date Hypotension 12/19/2020 [...] as of this encounter (statuses as of 09/04/2021) Resolved Problems Problem Noted Date Resolved Date [...] as of this encounter (statuses as of 09/04/2021) Immunizations Name Administration Dates Next Due COVID-19 mRNA, LNP-s, No Pre serve, 2-Dose Series ([employer]) 12/29/2020,12/18/2020 Pneumococcal Polysaccharide PPV23 (Pneumovax) 08/22/2009,06/15/2006 Seasonal [...] Notes * Telephone Encounter - Covid Results [facility] - 09/04/2021 1:31 AM EST Outreach Attempts IVR Call Sep 03 2021 9:18AM Voicemail - Voicemail Inbound Call Sep 03 2021 9:26AM Answered - Success Inbound Call Sep 03 2021 9:28AM Answered - Success Results COVID: Negative IVR Message: Marilou Brown. Your COVID-19 from 08/31/2021 00:00:00 results are negative. This means you are NOT infected with coronavirus 19. If your cold/flu symptoms last longer than 7 days or get worse, contact your primary care physician. If you don't have a primary care physician, go to the nearest [facility] or urgent care clinic. To establish care with a [facility] provider, please call . Practice social distancing and good hand hygiene to keep yourself and others safe. Your results are also available for your reference in your [email or web address] account under 'Test & Lab Results.' If you are not enrolled in [email or web address], you can create an account by going to [email or web address]. You will also receive a letter in the mail with your results. If you are a [facility] staff member or employee, when you receive your result, please call [facility] between 7 a.m. and 4 p.m. at [phone]. Notify them of your test results and for instructions on returning to work after your quarantine period. Press 1 if you would like to speak with a nurse, press 2 to hear this message again. documented in this encounter Plan of Treatment Upcoming Encounters Date Type Specialty Care Team Description 09/08/2021 Home Visit [facility] Vera Capellan, RN [address] [facility] [place] [address] 09/21/2021 Office Visit Nephrology Erik Lenz MD [address] [facility] [place] [address] 10/05/2021 Office Visit Cardiology Rey Woodall MD [address] [place] [address] 10/05/2021 Office Visit Pharmacy [facility] Moe Bobo [address] [place] [address] 10/08/2021 Home Visit Family Medicine Magaly Morales, Community Health Psychology Assistant [address] [place] [address] 01/21/2022 Office Visit Family Medicine Kevin Whiteside DO [address] [place] [address] Scheduled Procedures Name Priority Associated Diagnoses Date/Ti me COLONOSCOPY FLEXIBLE PROXIMAL DIAGNOSTIC Recall Colon cancer screening Health Maintenance Due Date Last Done Comments Pneumococcal Vaccine: 65+ Years (2 of 2 - PPSV23) 2020 08/22/2009, 06/15/2006 DIABETES-HGBA1C EVERY 6 MONTHS 05/17/2021 11/17/2020, 01/23/2020, 11/07/2019, Additional history exists COVID-19 Vaccine (3 - Booster) 06/30/2021 12/29/2020, 12/18/2020 CKD GFR USE SMARTSET 33837 09/19/202103/20, 03/12/2021, 12/25/2020, Additional history exists BREAST CANCER SCREENING DISCUSSION YEARLY AGES 40-75 10/01/2021 10/01/2020, 07/10/2019, 06/23/2018, Additional history exists DIABETES-FOOT EXAM 01/14/2022 01/14/2021, 0 11/07/2019, 01/01/2019, Additional history exists CKD PHOS USE SMARTSET 73576 03/12/202202/24, 11/17/2020, 12/24/2019, Additional history exists DIABETES-URINE MICROALBUMIN EVERY 12 MONTHS 03/12/2022 03/12/2021, 03/12/2021, 12/24/2019, Additional history exists CKD HGB USE SMARTSET 36282 03/20/202203/20, 03/20/2021, 03/12/2021, Additional history exists DIABETES-EYE [...] Documents on File Type Date Recorded Patient Vp Lab Expl anation Advanced Directive Advanced Directive Advanced [...] Camp Other Health Care Hayden r of Outside Property Agent Princess Allen Other Health Care Pow er of Outside Property Agent Care Teams Director Of Market Intelligence Relationship Specialty Start Date End Date Kevin Whiteside DO [address] [place] [address] PCP - General Family Medicine 05/01/18 documented as of this encounter
--- OUTSIDE RECORDS SUMMARY | 2023-06-01 04:54 | External Medical Summary | Summary of Care ---
Author Name Unknown Organization [place] [address] Care Team Providers Care See Wheeler Name Role Phone Kevin Whiteside DO Primary Care Provider Reason for Visit * Reason Onset Date Comments Appointment 08/27/2021 Encounter Details Date Type Department Care Team Description 08/27/2021 Telephone NephGregorio patton [address] [place] [phone] Erik Lenz MD [address] [place] [address] Appointment Allergies Active Allergy Reactions Severity Noted Date Comments Codeine 07/08/2014 hallucination Pollen 05/18/2019 Heparin 09/04/2009 Heparin Induced Thrombocytopenia Hydrocodone Neuro complications (Please comment) 07/28/2020 Empagliflozin Other (Please comment) Medium 05/17/2018 3 yeast infections in 6 weeks after starting Morphine And Related 09/16/1997 Hallucinations Tetanus Toxoid Other (Please comment) 06/15/2011 Passed out documented as of this encounter (statuses as of 08/27/2021) Medications Medication Sig Dispensed Refills Start Date [...] 90 Cap 3 12/18/2019 Active DIURETIC TITRATION PLANIndications:Petrol Tanker Driver 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 1 Each 0 04/08/2020 Active Blood Glucose Monitoring Suppl (IncellDxTOUCH ULTRA 2) w/Device KIT Use to test [...] skin weekly 2 mL 5 07/28/2021 Active Ondansetron HCl 4 MG Oral Tablet (Zofran)Indications: Vertigo Take 1 Tablet by mouth every 6 hours as needed for Nausea. 30 Tablet 0 08/10/2021 Active traZODone HCl 50 MG Oral Tablet (Desyrel) Take 1 Tablet by mouth at bedtime. 90 Tablet 1 08/10/2021 Active DULoxetine HCl 30 MG Oral Capsule Delayed Release Particles (Cymbalta) TAKE ONE CAPSULE BY MOUTH ONE TIME DAILY. TAKE WITH 60 MG CAPSULE FOR A TOTAL OF 90 MG 90 Capsule 1 08/14/2021 Active documented as of this encounter (statuses as of 08/27/2021) Active Problems Problem Noted Date Hypotension 12/19/2020 [...] as of this encounter (statuses as of 08/27/2021) Resolved Problems Problem Noted Date Resolved Date [...] as of this encounter (statuses as of 08/27/2021) Immunizations Name Administration Dates Next Due COVID-19 mRNA, LNP-s, No Pre serve, 2-Dose Series ([employer]) 12/29/2020,12/18/2020 Pneumococcal Polysaccharide PPV23 (Pneumovax) 08/22/2009,06/15/2006 Seasonal [...] Miscellaneous Notes * Telephone Encounter - ELISSA Campos - 08/27/2021 8:29 AM EST LM to schedule. * Telephone Encounter - ELISSA Campos - 08/27/2021 8:28 AM EST Images from the original note were not included. ELISSA Luna P Manjit 8 [facility] Manager Shop Pool Schedule patient in [facility] Previous Messages ----- Message ----- From: Lisa Flores Health Health Researcher Sent: 08/26/2021 12:42 PM EST To: Nephrology [place] Pool Patient is requesting an appointment please documented in this encounter Plan of Treatment Upcoming Encounters Date Type Specialty Care Team Description 09/08/2021 Home Visit [facility] Vera Capellan RN [address] [place] [address] 10/05/2021 Office Visit Cardiology Rey Woodall MD [address] [place] [address] 10/05/2021 Office Visit Pharmacy Danuta Ordaz [address] [place] [address] 10/08/2021 Home Visit Family Medicine Magaly Morales, Community Health Health Researcher [address] [place] [address] 01/21/2022 Office Visit Family Medicine Kevin Whiteside, DO [address] [address] Scheduled Procedures Name Priority Associated Diagnoses Date/Ti me COLONOSCOPY FLEXIBLE PROXIMAL DIAGNOSTIC Recall Colon cancer screening Health Maintenance Due Date Last Done Comments Pneumococcal Vaccine: 65+ Years (2 of 2 - PPSV23) 2020 08/22/2009, 06/15/2006 DIABETES-HGBA1C EVERY 6 MONTHS 05/17/2021 11/17/2020, 01/23/2020, 11/07/2019, Additional history exists COVID-19 Vaccine (3 - Booster) 06/30/2021 12/29/2020, 12/18/2020 CKD GFR USE SMARTSET 22621 09/19/202103/20, 03/12/2021, 12/25/2020, Additional history exists BREAST CANCER SCREENING DISCUSSION YEARLY AGES 40-75 10/01/2021 10/01/2020, 07/10/2019, 06/23/2018, Additional history exists DIABETES-FOOT EXAM 01/14/2022 01/14/2021, 0 11/07/2019, 01/01/2019, Additional history exists CKD PHOS USE SMARTSET 07319 03/12/202202/24, 11/17/2020, 12/24/2019, Additional history exists DIABETES-URINE MICROALBUMIN EVERY 12 MONTHS 03/12/2022 03/12/2021, 03/12/2021, 12/24/2019, Additional history exists CKD HGB USE SMARTSET 67914 03/20/202203/20, 03/20/2021, 03/12/2021, Additional history exists DIABETES-EYE [...] Documents on File Type Date Recorded Patient 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
--- OUTSIDE RECORDS SUMMARY | 2023-06-01 04:54 | External Medical Summary | Summary of Care ---
Author Name Unknown Organization [place] [address] Care Team Providers Care Permastone Installer Name Role Phone Kevin Whiteside DO Primary Care Provider Reason for Visit * Reason Onset Date Comments COVID-19 Screening 09/02/2021 Encounter Details Date Type Department Care Team Description 09/02/2021 Telephone COVID19 Screening [facility] DEPT CLOSED 07/07/21 [address] [place] [address] [id number], Automated Provider COVID-19 Screening Allergies Active Allergy Reactions Severity Noted Date Comments Codeine 07/08/2014 hallucination Pollen 05/18/2019 Heparin 09/04/2009 Heparin Induced Thrombocytopenia Hydrocodone Neuro complications (Please comment) 07/28/2020 Empagliflozin Other (Please comment) Medium 05/17/2018 3 yeast infections in 6 weeks after starting Morphine And Related 09/16/1997 Hallucinations Tetanus Toxoid Other (Please comment) 06/15/2011 Passed out documented as of this encounter (statuses as of 09/03/2021) Medications Medication Sig Dispensed Refills Start Date [...] 90 Cap 3 12/18/2019 Active DIURETIC TITRATION PLANIndications: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 1 Each 0 04/08/2020 Active Blood Glucose Monitoring Suppl (Jewel TonedTOUCH ULTRA 2) w/Device KIT Use to test [...] ([facility]) Inject 60 Units under the skin daily. [...] as of this encounter (statuses as of 09/03/2021) Active Problems Problem Noted Date Hypotension 12/19/2020 [...] 10/14/2014 Overview: ICD-10 update of inactive term Irene filter in place 08/19/2014 History of pulmonary embolus (PE) 2013 Statin intolerance 07/16/2014 HTN, goal below 130/80 02/22/2014 Venous insufficiency 02/07/2013 ELISSA (obstructive sleep apnea) 09/16/2011 Overview: CPAP 11 cwp Mild, AHI 11.3 but with significant nocturnal hypoxemia Dicks Postsurgical hypothyroidism 06/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 documented as of this encounter (statuses as of 09/03/2021) Resolved Problems Problem Noted Date Resolved Date [...] as of this encounter (statuses as of 09/03/2021) Immunizations Name Administration Dates Next Due COVID-19 mRNA, LNP-s, No Pre serve, 2-Dose Series ([employer]) 12/29/2020,12/18/2020 Pneumococcal Polysaccharide PPV23 (Pneumovax) 08/22/2009,06/15/2006 Seasonal [...] Notes * Telephone Encounter - Covid Results [facility] - 09/03/2021 6:02 AM EST Outreach Attempts IVR Call Sep 02 2021 9:19AM Answered - Failed to Authenticate IVR Message: Unsuccessful contact, no education provided documented in this encounter Plan of Treatment Upcoming Encounters Date Type Specialty Care Team Description 09/08/2021 Home Visit [facility] Vera Capellan RN [address] [facility] [place] [address] 09/21/2021 Office Visit Nephrology Erik Lenz MD [address] [place] [address] 10/05/2021 Office Visit Cardiology Rey Woodall MD [address] [place] [address] 10/05/2021 Office Visit Pharmacy [facility] Jeramie [address] [place] [address] 10/08/2021 Home Visit Family Medicine Magaly Morales, Community Health Braider Setter [address] [place] [address] 01/21/2022 Office Visit Family Medicine Kevin Whiteside DO [address] [place] [address] Scheduled Procedures Name Priority Associated Diagnoses Date/Ti me COLONOSCOPY FLEXIBLE PROXIMAL DIAGNOSTIC Recall Colon cancer screening Health Maintenance Due Date Last Done Comments Pneumococcal Vaccine: 65+ Years (2 of 2 - PPSV23) 2020 08/22/2009, 06/15/2006 DIABETES-HGBA1C EVERY 6 MONTHS 05/17/2021 11/17/2020, 01/23/2020, 11/07/2019, Additional history exists COVID-19 Vaccine (3 - Booster) 06/30/2021 12/29/2020, 12/18/2020 CKD GFR USE SMARTSET 27148 09/19/202103/20, 03/12/2021, 12/25/2020, Additional history exists BREAST CANCER SCREENING DISCUSSION YEARLY AGES 40-75 10/01/2021 10/01/2020, 07/10/2019, 06/23/2018, Additional history exists DIABETES-FOOT EXAM 01/14/2022 01/14/2021, 0 11/07/2019, 01/01/2019, Additional history exists CKD PHOS USE SMARTSET 53257 03/12/202202/24, 11/17/2020, 12/24/2019, Additional history exists DIABETES-URINE MICROALBUMIN EVERY 12 MONTHS 03/12/2022 03/12/2021, 03/12/2021, 12/24/2019, Additional history exists CKD HGB USE SMARTSET 34078 03/20/202203/20, 03/20/2021, 03/12/2021, Additional history exists DIABETES-EYE [...] Documents on File Type Date Recorded Patient Head Loader Expl anation Advanced Directive Advanced Directive Advanced [...] Camp Other Health Care Hayden r of Tractor Driver Teamster Princess Allen Other Health Care Pow er of Tractor Driver Teamster Care Teams Permastone Installer Relationship Specialty Start Date End Date Kevin Whiteside, [address] [place] [address] PCP - General Family Medicine 05/01/18 documented as of this encounter
--- OUTSIDE RECORDS SUMMARY | 2023-06-01 04:54 | External Medical Summary | Summary of Care ---
Author Name Unknown Organization [place] [address] Care Team Providers Care Lawn Caretaker Name Role Phone Kevin Whiteside DO Primary Care Provider Reason for Visit * Reason Onset Date Comments Information 09/10/2021 Encounter Details Date Type Department Care Team Description 09/10/2021 Telephone [facility] [place] [address] [place] [address] Services, Scheduling [address] [place] [address] Information Allergies Active Allergy Reactions Severity Noted [...] 90 Cap 3 12/18/2019 Active DIURETIC TITRATION PLANIndications:Sawmilling Operator 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 1 Each 0 04/08/2020 Active Blood Glucose Monitoring Suppl (TelnicTOUCH ULTRA 2) w/Device KIT Use to test [...] with hemoglobin A1c goal of 7.0%-8.0% ([facility] Inject 60 Units under [...] with hemoglobin A1c goal of 7.0%-8.0% ([facility]) Inject 40 units with meals + sliding scale 1 units for every 25 units BG > 150. 121 mL 3 03/20/2021 Active Furosemide 40 MG Oral Tablet (Lasix)Indications:C hronic diastolic congestive heart failure ([facility]) Take 0.5 Tabs by mouth [...] 10/14/2014 Overview: ICD-10 update of inactive term Hers[place] filter in place 08/19/2014 History of pulmonary [...] mRNA, LNP-s, No Pre serve, 2-Dose Series ([employer]) 12/29/2020,12/18/2020 Pneumococcal Polysaccharide PPV23 (Pneumovax) 08/22/2009,06/15/2006 Seasonal [...] * Telephone Encounter - ELISSA Rice - 09/10/2021 10:48 AM EST appt resched w/ pricilla garg for 10/08/21 at 4pm, call to pt she is aware and agreeable to appt. documented in this encounter Plan of Treatment Upcoming Encounters Date Type Specialty Care Team Description 09/21/2021 Office Visit Nephrology Erik Lenz MD [address] [place] [address] 10/05/2021 Office Visit Cardiology Rey Woodall MD [address] [place] [address] 10/05/2021 Office Visit Pharmacy [facility] Jeramie [address] [place] [address] 10/08/2021 Home Visit Family Medicine Magaly Morales, Community Health Measurement Psychologist [address] [place] [address] 10/08/2021 Office Visit Sleep Disorders Celsa Tafoya CRNP [address] [place] [address] 10/20/2021 Home Visit [facility] Vera Capellan RN [address] [place] [address] 01/21/2022 Office Visit Family Medicine Kevin Whiteside, [address] [place] [address] Scheduled Procedures Name Priority Associated Diagnoses Date/Ti me COLONOSCOPY FLEXIBLE PROXIMAL DIAGNOSTIC Recall Colon cancer screening Health Maintenance Due Date Last Done Comments Pneumococcal Vaccine: 65+ Years (2 of 2 - PPSV23) 2020 08/22/2009, 06/15/2006 DIABETES-HGBA1C EVERY 6 MONTHS 05/17/2021 11/17/2020, 01/23/2020, 11/07/2019, Additional history exists COVID-19 Vaccine (3 - Booster) 06/30/2021 12/29/2020, 12/18/2020 CKD GFR USE SMARTSET 74516 09/19/202103/20, 03/12/2021, 12/25/2020, Additional history exists BREAST CANCER SCREENING DISCUSSION YEARLY AGES 40-75 10/01/2021 10/01/2020, 07/10/2019, 06/23/2018, Additional history exists DIABETES-FOOT EXAM 01/14/2022 01/14/2021, 0 11/07/2019, 01/01/2019, Additional history exists CKD PHOS USE SMARTSET 23889 03/12/202202/24, 11/17/2020, 12/24/2019, Additional history exists DIABETES-URINE MICROALBUMIN EVERY 12 MONTHS 03/12/2022 03/12/2021, 03/12/2021, 12/24/2019, Additional history exists CKD HGB USE SMARTSET 86178 03/20/202203/20, 03/20/2021, 03/12/2021, Additional history exists DIABETES-EYE [...] Documents on File Type Date Recorded Patient Urogynaecologist Expl anation Advanced Directive Advanced Directive Advanced [...] Other Health Care Hayden r of Professor Of Astronomy Princess Allen Other Health Care Pow er of Professor Of Astronomy Care Teams Lawn Caretaker Relationship Specialty Start Date End Date Kevin Whiteside DO [address] [place] [address] PCP - General Family Medicine 05/01/18 documented as of this encounter
--- OUTSIDE RECORDS SUMMARY | 2023-06-01 04:54 | External Medical Summary ---
Author Name Unknown Address Unknown Organization K01:[facility] - [address] [place] [address] Laboratory Report Ordering Provider Test Date Status LONG CAMARENA 08/31/2021 14:13:38 Final Observation Date Value Abnormality Reference (Units ) Status SARS Coronavirus 2 08/31/2021 14:13:38 Negative N egative Final Performing Location [facility] - [address] [place] [address]
--- OUTSIDE RECORDS SUMMARY | 2023-06-01 04:54 | External Medical Summary | Summary of Care ---
Author Name Unknown Organization [place] [address] Care Team Providers Care Gunite Nozzle Operator Name Role Phone Kevin Whiteside DO Primary Care Provider Reason for Visit * Reason Onset Date Comments Appointment 08/27/2021 Encounter Details Date Type Department Care Team Description 08/27/2021 Telephone NephGregorio patton [address] [place] [phone] Erik Lenz MD [address] [place] [address] Appointment Allergies Active Allergy Reactions Severity Noted [...] Cap 3 12/18/2019 Active DIURETIC TITRATION PLANIndications:Car Hiker 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 1 Each 0 04/08/2020 Active Blood Glucose Monitoring Suppl (RestaroTOUCH ULTRA 2) w/Device KIT Use to test [...] goal of 7.0%-8.0% ([facility]) Inject 60 Units under the skin daily. [...] mRNA, LNP-s, No Pre serve, 2-Dose Series ([employer]) 12/29/2020,12/18/2020 Pneumococcal Polysaccharide PPV23 (Pneumovax) 08/22/2009,06/15/2006 Seasonal [...] not included. ELISSA Luna P Manjit 8 [facility] Bilingual Kindergarten Teacher Pool Schedule patient in [facility] Previous Messages ----- Message ----- From: Lisa Flores Health Inspecting And Testing Lead Hand Sent: 08/26/2021 12:42 PM EST To: Nephrology [place] Pool Patient is requesting an appointment please documented in this encounter Plan of Treatment Upcoming Encounters Date Type Specialty Care Team Description 09/08/2021 Home Visit [facility] Vera Capellan RN [address] [place] [address] 10/05/2021 Office Visit Cardiology Rey Woodall MD [address] [place] [address] 10/05/2021 Office Visit Pharmacy Danuta Ordaz [address] [place] [address] 10/08/2021 Home Visit Family Medicine Magaly Morales, Community Health Inspecting And Testing Lead Hand [address] [place] [address] 01/21/2022 Office Visit Family Medicine Kevin Whiteside, DO [address] [place] [address] Scheduled Procedures Name Priority Associated Diagnoses Date/Ti me COLONOSCOPY FLEXIBLE PROXIMAL DIAGNOSTIC Recall Colon cancer screening Health Maintenance Due Date Last Done Comments Pneumococcal Vaccine: 65+ Years (2 of 2 - PPSV23) 2020 08/22/2009, 06/15/2006 DIABETES-HGBA1C EVERY 6 MONTHS 05/17/2021 11/17/2020, 01/23/2020, 11/07/2019, Additional history exists COVID-19 Vaccine (3 - Booster) 06/30/2021 12/29/2020, 12/18/2020 CKD GFR USE SMARTSET 07026 09/19/202103/20, 03/12/2021, 12/25/2020, Additional history exists BREAST CANCER SCREENING DISCUSSION YEARLY AGES 40-75 10/01/2021 10/01/2020, 07/10/2019, 06/23/2018, Additional history exists DIABETES-FOOT EXAM 01/14/2022 01/14/2021, 0 11/07/2019, 01/01/2019, Additional history exists CKD PHOS USE SMARTSET 66313 03/12/202202/24, 11/17/2020, 12/24/2019, Additional history exists DIABETES-URINE MICROALBUMIN EVERY 12 MONTHS 03/12/2022 03/12/2021, 03/12/2021, 12/24/2019, Additional history exists CKD HGB USE SMARTSET 80664 03/20/202203/20, 03/20/2021, 03/12/2021, Additional history exists DIABETES-EYE [...] Documents on File Type Date Recorded Patient Market Basket Maker Expl anation Advanced Directive Advanced Directive [...] Camp Other Health Care Hayden r of House Carpenter Princess Allen Other Health Care Pow er of House Carpenter Care Teams Gunite Nozzle Operator Relationship Specialty Start Date End Date Kevin Whiteside DO [address] [place] [address] PCP - General Family Medicine 05/01/18 documented as of this encounter
--- OUTSIDE RECORDS SUMMARY | 2023-06-01 04:54 | External Medical Summary | Summary of Care ---
Author Name Unknown Organization [place] [address] Care Team Providers Care Club Licensee Name Role Phone Migue Whiteside DO Primary Care Provider Reason for Visit * Reason Onset Date Comments Medication Refill 09/08/2021 Encounter Details Date Type Department Care Team Description 09/08/2021 Refill [facility] [address] [place] [address] Migue Whiteside DO [address] [facility] [place] [address] Spinal stenosis of lumbar region without neurogenic claudication; Lumbar radiculopathy Allergies Active Allergy Reactions Severity Noted Date Comments Codeine 07/08/2014 hallucination Pollen 05/18/2019 Heparin 09/04/2009 Heparin Induced Thrombocytopenia Hydrocodone Neuro complications (Please comment) 07/28/2020 Empagliflozin Other (Please comment) Medium 05/17/2018 3 yeast infections in 6 weeks after starting Morphine And Related 09/16/1997 Hallucinations Tetanus Toxoid Other (Please comment) 06/15/2011 Passed out documented as of this encounter (statuses as of 09/09/2021) Medications Medication Sig Dispensed Refills Start Date [...] 0 04/08/2020 Active Blood Glucose Monitoring Suppl (TouchotelUCH ULTRA 2) w/Device KIT Use to test [...] Tablet (Lasix)Indications: Chronic diastolic congestive heart failure ([facility]) Take 0.5 Tabs by mouth 2 [...] 07/20/2021 Active clonazePAM 0.5 MG Oral Tablet (KlonoPIN)Indicatio [...] times daily 200 Each 5 09/09/2021 Active Cyclobenzaprine HCl 10 MG Oral Tablet (Flexeril)Indicatio ns:Spinal stenosis of lumbar region without neurogenic claudication,Lumbar radiculopathy TAKE ONE TABLET BY MOUTH AT BEDTIME NEEDED FOR SPASM 30 Tab 0 03/02/2021 1 Discontinu ed(Refill) BD Pen Needle Short U/F 31G X 8 MM (Insulin Pen Needle) use five times daily 200 Each 5 09/08/2021 1 Discontinu ed(Refill) documented as of this encounter (statuses as of 09/09/2021) Active Problems Problem Noted Date Hypotension 12/19/2020 [...] 10/14/2014 Overview: ICD-10 update of inactive term [place] filter in place 08/19/2014 History of pulmonary embolus (PE) 2013 Statin intolerance 07/16/2014 HTN, goal below 130/80 02/22/2014 Venous insufficiency 02/07/2013 ELISSA (obstructive sleep apnea) 09/16/2011 Overview: CPAP 11 cwp Mild, AHI 11.3 but with significant nocturnal hypoxemia Dicks Postsurgical hypothyroidism 06/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 documented as of this encounter (statuses as of 09/09/2021) Resolved Problems Problem Noted Date Resolved Date [...] 76%, time <89% 6:21 hours, TINY [facility] Nontoxic uninodular goiter 06/16/201108/17 Body mass [...] as of this encounter (statuses as of 09/09/2021) Immunizations Name Administration Dates Next Due COVID-19 [...] Telephone Encounter - Migue Whiteside DO - 09/09/2021 7:47 AM EST Signed Prescriptions: Disp Refills Cyclobenzaprine HCl 10 MG Oral Tablet (Fle*30 Tab*0 Sig: TAKE ONE TABLET BY MOUTH AT BEDTIME NEEDED FOR SPASM Authorizing Provider: MIGUE WHITESIDE BD Pen Needle Short U/F 31G X 8 MM (Insuli*200 Ea*5 Sig: use five times daily Authorizing Provider: MIGUE WHITESIDE * Telephone Encounter - Kristen Fowler RN - 09/08/2021 8:43 AM EST Pending Prescriptions: Disp Refills Cyclobenzaprine HCl 10 MG Oral Tablet (Fl*30 Tab*0 Sig: TAKE ONE TABLET BY MOUTH AT BEDTIME NEEDED FOR SPASM BD Pen Needle Short U/F 31G X 8 MM (Insul*200 Ea*5 Sig: use five times daily documented in this encounter Plan of Treatment Upcoming Encounters Date Type Specialty Care Team Description 09/21/2021 Office Visit Nephrology Erik Lenz MD [address] [place] [address] 10/05/2021 Office Visit Cardiology Rey Woodall MD [address] [place] [address] 10/05/2021 Office Visit Pharmacy [facility] [place] [address] [place] [address] 10/08/2021 Home Visit Family Medicine Magaly Morales, [facility] Chief [address] [place] [address] 10/20/2021 Home Visit [facility] Vera Capellan RN [address] [place] [address] [address] 01/21/2022 Office Visit Family Medicine Migue Whiteside DO [address] [place] [address] [address] Scheduled Procedures Name Priority Associated Diagnoses Date/Ti me COLONOSCOPY FLEXIBLE PROXIMAL DIAGNOSTIC Recall Colon cancer screening Health Maintenance Due Date Last Done Comments Pneumococcal Vaccine: 65+ Years (2 of 2 - PPSV23) 2020 08/22/2009, 06/15/2006 DIABETES-HGBA1C EVERY 6 MONTHS 05/17/2021 11/17/2020, 01/23/2020, 11/07/2019, Additional history exists COVID-19 Vaccine (3 - Booster) 06/30/2021 12/29/2020, 12/18/2020 CKD GFR USE SMARTSET 96295 09/19/202103/20, 03/12/2021, 12/25/2020, Additional history exists BREAST CANCER SCREENING DISCUSSION YEARLY AGES 40-75 10/01/2021 10/01/2020, 07/10/2019, 06/23/2018, Additional history exists DIABETES-FOOT EXAM 01/14/2022 01/14/2021, 0 11/07/2019, 01/01/2019, Additional history exists CKD PHOS USE SMARTSET 71487 03/12/202202/24, 11/17/2020, 12/24/2019, Additional history exists DIABETES-URINE MICROALBUMIN EVERY 12 MONTHS 03/12/2022 03/12/2021, 03/12/2021, 12/24/2019, Additional history exists CKD HGB USE SMARTSET 68381 03/20/202203/20, 03/20/2021, 03/12/2021, Additional history exists DIABETES-EYE [...] Thoracic or lumbosacral neuritis or radiculitis, unspecified documented in this encounter Advance Directives Documents on File Type Date Recorded Patient Marine Fireman Expl anation Advanced Directive Advanced Directive Advanced [...] Camp Other Health Care [place] r of Export Specialist Princess Allen Other Health Care Pow er of Export Specialist Care Teams Club Licensee Relationship Specialty Start Date End Date Migue Whiteside DO [address] [place] [id number] PCP - General Family Medicine 05/01/18 documented as of this encounter
--- OUTSIDE RECORDS SUMMARY | 2023-06-01 04:55 | External Medical Summary | Summary of Care ---
Author Name Unknown Organization [place] [address] Care Team Providers Care Electronic Drafter Name Role Phone Stevo Kevin Shermelinda Primary Care Provider Encounter Details Date Type Department Care Team Description 08/17/2021 Orders Only Outcomes Research Department [address] [place] [address] Feng Reid CHRA My[facility] Research Other*[id number] Allergies Active Allergy Reactions Severity Noted Date Comments Codeine 07/08/2014 hallucination Pollen 05/18/2019 Heparin 09/04/2009 Heparin Induced Thrombocytopenia Hydrocodone Neuro complications (Please comment) 07/28/2020 Empagliflozin Other (Please comment) Medium 05/17/2018 3 yeast infections in 6 weeks after starting Morphine And Related 09/16/1997 Hallucinations Tetanus Toxoid Other (Please comment) 06/15/2011 Passed out documented as of this encounter (statuses as of 08/17/2021) Medications Medication Sig Dispensed Refills Start Date [...] 90 Cap 3 12/18/2019 Active DIURETIC TITRATION PLANIndications:Outbound Sales Consultant 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 1 Each 0 04/08/2020 Active Blood Glucose Monitoring Suppl (ZBD DisplaysTOUCH ULTRA 2) w/Device KIT Use to test [...] goal of 7.0%-8.0% ([facility]) Inject 60 Units under the skin [...] Tablet (Lasix)Indications:C hronic diastolic congestive heart failure ([facility]) Take 0.5 Tabs by mouth 2 [...] as of this encounter (statuses as of 08/17/2021) Active Problems Problem Noted Date Hypotension 12/19/2020 [...] 10/14/2014 Overview: ICD-10 update of inactive term [place] filter in place 08/19/2014 History of pulmonary embolus (PE) 2013 Statin intolerance 07/16/2014 HTN, goal below 130/80 02/22/2014 Venous insufficiency 02/07/2013 ELISSA (obstructive sleep apnea) 09/16/2011 Overview: CPAP 11 cwp Mild, AHI 11.3 but with significant nocturnal hypoxemia Dicks Postsurgical hypothyroidism 06/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 documented as of this encounter (statuses as of 08/17/2021) Resolved Problems Problem Noted Date Resolved Date [...] as of this encounter (statuses as of 08/17/2021) Immunizations Name Administration Dates Next Due COVID-19 mRNA, LNP-s, No Pre serve, 2-Dose Series (byyd) 12/29/2020,12/18/2020 Pneumococcal Polysaccharide PPV23 (Pneumovax) 08/22/2009,06/15/2006 Seasonal [...] Encounters Date Type Specialty Care Team Description 08/18/2021 Office Visit Sleep Disorders Celsa Tafoya CRNP [address] [address] [address] 08/19/2021 Home Visit Family Medicine Magaly Morales, [facility] Registered Nurse [address] [place] [address] 09/08/2021 Home Visit [facility] Vera Capellan RN [address] [place] [address] [address] 10/05/2021 Office Visit Cardiology Rey Woodall MD [address] [place] [address] [address] 10/05/2021 Office Visit Pharmacy [facility] [place] [address] [place] [address] [address] 01/21/2022 Office Visit Family Medicine Kevin Whiteside DO [address] [place] [address] [address] Scheduled Orders Name Type Priority Associated Diagnoses Orde r Schedule MYCODE SUBSEQUENT ADULT Lab Routine MyCode Research Other*[id number] Every 6 Months for 2 Occurrences starting 08/17/2021 until 09/06/2022 Scheduled Procedures Name Priority Associated Diagnoses Date/Ti me COLONOSCOPY FLEXIBLE PROXIMAL DIAGNOSTIC Recall Colon cancer screening Health Maintenance Due Date Last Done Comments Pneumococcal Vaccine: 65+ Years (2 of 2 - PPSV23) 2020 08/22/2009, 06/15/2006 DIABETES-HGBA1C EVERY 6 MONTHS 05/17/2021 11/17/2020, 01/23/2020, 11/07/2019, Additional history exists COVID-19 Vaccine (3 - Booster) 06/30/2021 12/29/2020, 12/18/2020 CKD GFR USE SMARTSET 93305 09/19/202103/20, 03/12/2021, 12/25/2020, Additional history exists BREAST CANCER SCREENING DISCUSSION YEARLY AGES 40-75 10/01/2021 10/01/2020, 07/10/2019, 06/23/2018, Additional history exists DIABETES-FOOT EXAM 01/14/2022 01/14/2021, 0 11/07/2019, 01/01/2019, Additional history exists CKD PHOS USE SMARTSET 98094 03/12/202202/24, 11/17/2020, 12/24/2019, Additional history exists DIABETES-URINE MICROALBUMIN EVERY 12 MONTHS 03/12/2022 03/12/2021, 03/12/2021, 12/24/2019, Additional history exists CKD HGB USE SMARTSET 44186 03/20/202203/20, 03/20/2021, 03/12/2021, Additional history exists DIABETES-EYE [...] this encounter Visit Diagnoses Diagnosis My[facility] Research Other*[id number] documented in this encounter Advance Directives Documents on File Type Date Recorded Patient Animal Cruelty Investigator Expl anation Advanced Directive Advanced Directive Advanced [...] Camp Other Health Care Hay[place] r of Residential Team Leader Princess Allen Other Health Care Pow er of Residential Team Leader Care Teams Electronic Drafter Relationship Specialty Start Date End Date Kevin Whitseide DO [address] [address] PCP - General Family Medicine 05/01/18 documented as of this encounter
--- OUTSIDE RECORDS SUMMARY | 2023-06-01 04:55 | External Medical Summary | Summary of Care ---
Author Name Unknown Organization [place] [address] Care Team Providers Care Bookstore Clerk Name Role Phone Kevin Whiteside DO Primary Care Provider Reason for Visit * Reason Comments [facility]: Maintenance Encounter Details Date Type Department Care Team Description 08/26/2021 Home Visit Care Coordination [address], [place] [id number] Magaly Morales, Community [facility] Housekeeper Caregiver [address] [place] [address] Allergies Active Allergy Reactions Severity Noted Date Comments Codeine 07/08/2014 hallucination Pollen 05/18/2019 Heparin 09/04/2009 Heparin Induced Thrombocytopenia Hydrocodone Neuro complications (Please comment) 07/28/2020 Empagliflozin Other (Please comment) Medium 05/17/2018 3 yeast infections in 6 weeks after starting Morphine And Related 09/16/1997 Hallucinations Tetanus Toxoid Other (Please comment) 06/15/2011 Passed out documented as of this encounter (statuses as of 08/26/2021) Medications Medication Sig Dispensed Refills Start Date [...] 90 Cap 3 12/18/2019 Active DIURETIC TITRATION PLANIndications:Wire Wheeler 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 1 Each 0 04/08/2020 Active Blood Glucose Monitoring Suppl (KoogameTOUCH ULTRA 2) w/Device KIT Use to test [...] ([facility]) Inject 60 Units under the skin [...] ([facility]) Inject 40 units with meals + sliding scale 1 units for every 25 units BG > 150. 121 mL 3 03/20/2021 Active Furosemide 40 MG Oral Tablet (Lasix)Indications:C hronic diastolic congestive heart failure ([facility]) Take 0.5 Tabs by mouth 2 times [...] as of this encounter (statuses as of 08/26/2021) Active Problems Problem Noted Date Hypotension 12/19/2020 [...] as of this encounter (statuses as of 08/26/2021) Resolved Problems Problem Noted Date Resolved Date [...] as of this encounter (statuses as of 08/26/2021) Immunizations Name Administration Dates Next Due COVID-19 mRNA, LNP-s, No Pre serve, 2-Dose Series (Jive Bike) 12/29/2020,12/18/2020 Pneumococcal Polysaccharide PPV23 (Pneumovax) 08/22/2009,06/15/2006 Seasonal [...] Reading Time Taken Comments Blood Pressure 118/60 08/26/2021 12:42 PM EST Pulse 92 08/26/2021 12:42 PM EST Temperature 36 C (96.8 F) 08/26/2021 12:42 PM EST Respiratory Rate 20 08/26/2021 12:42 PM EST Oxygen Saturation 93% 08/26/2021 12:42 PM EST Inhaled Oxygen Concentration - - Weight - - Height - - Body Mass Index - - documented in this encounter Progress Notes * Magaly Morales, [facility] Housekeeper Caregiver - 08/26/2021 12:26 PM EST Community Health Housekeeper Caregiver Visit Date: 08/26/2021 Time: 12:26 PM Name: Stephanie Camp : 1955 Referral Source: on site property manager Source of Information: Patient Spoken language: Kazakh Patient can read in Kazakh: Yes. Policewoman needed: Yes. . COVID-19 screening completed: Yes Vitals: Vital signs completed: Yes, vital signs within normal range. BP 118/60 (BP Site: Right Arm, BP Position: Sitting) | Pulse 92 | Temp 36 C (96.8 F) | Resp 20 | LMP 03/11/2003 | SpO2 93% Condition Changes: Changes in health or social status since last visit: Going to PT x2 a week Getting stronger BSG are staying in the 100-200 Pain in right side thinks from peddling a bike at PT Using CPAP at night Using a wells when leaving the home No complaints with bowls or bladder Denied any falls or edema No SOB reported The patient has new concerns since last visit: No Progress towards goals since last visit: Getting stronger and more active Medications: Medication review completed? No, . Does the patient have barriers to medication adherence? No. Patient reports difficulty paying for medications or might in the future: No. Telehealth: This is a telehealth visit: No. Symptoms Surveys and Evaluations: MAHC10 completed this visit: Yes. Score is greater than 4? Yes, notified Provider/Barrel Filler Head Last flowsheet values for MAHC10: Age 65+: 1 (08/26/2021 12:00 PM) Diagnosis (3 or more co-existing): 1 (08/26/2021 12:00 PM) Prior history of falls within 3 months: 0 (08/26/2021 12:00 PM) Incontinence: 1 (08/26/2021 12:00 PM) Visual impairment: 0 (08/26/2021 12:00 PM) Impaired functional mobility: 1 (08/26/2021 12:00 PM) Environmental hazards: 1 (08/26/2021 12:00 PM) Poly Pharmacy (4 or more prescriptions - any type): 1 (08/26/2021 12:00 PM) Pain affecting level of function: 1 (08/26/2021 12:00 PM) Cognitive impairment: 0 (08/26/2021 12:00 PM) Score - a score of 4 or more is considered at risk for fallin (08/26/2021 12:00 PM) Plan: Reinforced care plan established by care team . Follow Up: Patient encouraged to call the intake phone number for all urgent but not emergent issues. Scheduled to follow up with patient in 6weeks. Lisa Flores Health Housekeeper Caregiver 08/26/2021 12:26 PM documented in this encounter Plan of Treatment Upcoming Encounters Date Type Specialty Care Team Description 09/08/2021 Home Visit [facility] Vera Capellan RN [address] [address] 10/05/2021 Office Visit Cardiology Rey Woodall MD [address] [address] 10/05/2021 Office Visit Pharmacy [facility] [address] [address] 10/08/2021 Home Visit Family Medicine Magaly Morales, [facility] [address] [facility] [address] 01/21/2022 Office Visit Family Medicine Kevin Whiteside DO [address] [place] [address] Scheduled Procedures Name Priority Associated Diagnoses Date/Ti me COLONOSCOPY FLEXIBLE PROXIMAL DIAGNOSTIC Recall Colon cancer screening Health Maintenance Due Date Last Done Comments Pneumococcal Vaccine: 65+ Years (2 of 2 - PPSV23) 2020 08/22/2009, 06/15/2006 DIABETES-HGBA1C EVERY 6 MONTHS 05/17/2021 11/17/2020, 01/23/2020, 11/07/2019, Additional history exists COVID-19 Vaccine (3 - Booster) 06/30/2021 12/29/2020, 12/18/2020 CKD GFR USE SMARTSET 29375 09/19/202103/20, 03/12/2021, 12/25/2020, Additional history exists BREAST CANCER SCREENING DISCUSSION YEARLY AGES 40-75 10/01/2021 10/01/2020, 07/10/2019, 06/23/2018, Additional history exists DIABETES-FOOT EXAM 01/14/2022 01/14/2021, 0 11/07/2019, 01/01/2019, Additional history exists CKD PHOS USE SMARTSET 09600 03/12/202202/24, 11/17/2020, 12/24/2019, Additional history exists DIABETES-URINE MICROALBUMIN EVERY 12 MONTHS 03/12/2022 03/12/2021, 03/12/2021, 12/24/2019, Additional history exists CKD HGB USE SMARTSET 19376 03/20/202203/20, 03/20/2021, 03/12/2021, Additional history exists DIABETES-EYE [...] on File Type Date Recorded Patient Manager Revenue Expl anation Advanced Directive Advanced Directive Advanced [...] Camp Other Health Care Hayden r of Chronic Disease Epidemiologist Princess Allen Other Health Care Pow er of Chronic Disease Epidemiologist Care Teams Bookstore Clerk Relationship Specialty Start Date End Date Kevin Whiteside DO [address] [address] PCP - General Family Medicine 05/01/18 documented as of this encounter"
--- OUTSIDE RECORDS SUMMARY | 2023-06-01 04:55 | External Medical Summary | Summary of Care ---
Author Name Unknown Organization [place] [address] Care Team Providers Care Scientific Director Name Role Phone Kevin Whiteside DO Primary Care Provider Reason for Visit * Reason Onset Date Comments Advice 08/03/2021 Encounter Details Date Type Department Care Team Description 08/03/2021 Telephone [facility] [address] [place] [address] CouRaj soto DO [address] [place] [address] Advice Allergies Active Allergy Reactions Severity Noted Date Comments Codeine 07/08/2014 hallucination Pollen 05/18/2019 Heparin 09/04/2009 Heparin Induced Thrombocytopenia Hydrocodone Neuro complications (Please comment) 07/28/2020 Empagliflozin Other (Please comment) Medium 05/17/2018 3 yeast infections in 6 weeks after starting Morphine And Related 09/16/1997 Hallucinations Tetanus Toxoid Other (Please comment) 06/15/2011 Passed out documented as of this encounter (statuses as of 08/03/2021) Medications Medication Sig Dispensed Refills Start Date [...] 90 Cap 3 12/18/2019 Active DIURETIC TITRATION PLANIndications:Chron ic diastolic congestive heart failure (HCC) If no improvement on day 3, contact heart failure managing provider. 1 Each 0 04/08/2020 Active Blood Glucose Monitoring Suppl (Credit Karma ULTRA 2) w/Device KIT Use to test BG values 1 Kit 0 05/20/2020 Active Glucose Blood (ONETOUCH ULTRA BLUE) STRP Check sugars 3-4 times daily, E11.9 400 Strip 3 05/22/2020 Active clobetasol propionate (TEMOVATE) 0.05 % creamIndications:Lich en planus Apply to rash on the hands and dorsal feet twice daily x 1 week, then as needed for flares. 30 g 1 06/03/2020 Active BD Pen Needle Short U/F 31G X 8 MM (Insulin Pen Needle) Use 5 times daily with insulin 200 Each 11 06/27/2020 Active Magnesium Oxide 400 (241.3 Mg) MG Oral TabletIndications:Hyp omagnesemia Take 400 mg by mouth daily. 90 Tab 0 07/24/2020 Active Additional Information Patient taking differently: 400 mg Oral DAILY, Agreed to resume daily dose, Reported on 07/08/2021 DULoxetine HCl 60 MG Oral Capsule Delayed Release Particles (CYMBALTA)Indications :Fibromyalgia,Moderat e episode of recurrent major depressive disorder (HCC),Primary osteoarthritis of both knees Take 1 Cap by mouth daily. Along with 30 mg capsule to total 90 mg daily. 90 Cap 3 10/02/2020 Active rOPINIRole HCl 2 MG Oral Tablet (Requip)Indications:R estless legs syndrome Take 1 Tab by mouth at bedtime. 90 Tab 3 12/09/2020 Active Acetaminophen 500 MG Oral Tablet (Acetaminophen Extra Strength) Take 500 mg by mouth every 6 hours as needed. 0 Active Tresiba FlexTouch 100 UNIT/ML Subcutaneous Solution Pen-injector (Insulin Degludec)Indications: Type 2 diabetes mellitus with hemoglobin A1c goal of 7.0%-8.0% ([facility]) Inject 60 Units under the skin daily. 45 mL 3 12/18/2020 Active Meclizine HCl 12.5 MG Oral Tablet (Antivert)Indications :Vertigo Take 1 Tab by mouth 3 times a day as needed for Dizziness. 30 Tab 1 12/29/2020 Active Ondansetron HCl 4 MG Oral Tablet (Zofran)Indications:V ertigo Take 1 Tab by mouth every 6 hours as needed for Nausea. 30 Tab 0 12/29/2020 Active Levothyroxine Sodium 50 MCG Oral Tablet (Levoxyl)Indications: Hyperparathyroidism, secondary renal ([facility]) Take 1 Tab by mouth daily. (at least 30 min prior to breakfast or other meds) 30 Tab 11 01/14/2021 Active traZODone HCl 50 MG Oral Tablet (Desyrel) TAKE ONE TABLET BY MOUTH AT BEDTIME 90 Tab 1 02/06/2021 Active Colchicine 0.6 MG Oral TabletIndications:Jacobo kocytoclastic vasculitis ([facility]) Take 1/2 tab daily 45 Tab 1 02/09/2021 Active Dicyclomine HCl 20 MG Oral Tablet (Bentyl) Take 1 Tab by mouth 4 times a day as needed for Pain, Mild. For abdominal pain 120 Tab 11 02/17/2021 Active Nortriptyline HCl 50 MG Oral Capsule (Pamelor)Indications: Fibromyalgia Take 1 Cap by mouth at bedtime. 90 Cap 1 02/24/2021 Active Cyclobenzaprine HCl 10 MG Oral Tablet (Flexeril)Indications :Spinal stenosis of lumbar region without neurogenic claudication,Lumbar radiculopathy TAKE ONE TABLET BY MOUTH AT BEDTIME NEEDED FOR SPASM 30 Tab 0 03/02/2021 Active Nerve Pain Relief Sublingual Tablet SublingualIndications :pt taking Nervive, nerve relief tablets at bedtime Place under the tongue. Indications: pt taking Nervive, nerve relief tablets at bedtime 0 Active NovoLOG FlexPen 100 UNIT/ML Subcutaneous Solution Pen-injector (insulin aspart)Indications:Ty pe 2 diabetes mellitus with hemoglobin A1c goal of 7.0%-8.0% ([facility]) Inject 40 units with meals + sliding scale 1 units for every 25 units BG > 150. 121 mL 3 03/20/2021 Active Furosemide 40 MG Oral Tablet (Lasix)Indications:Ch ronic diastolic congestive heart failure ([facility]) Take 0.5 Tabs by mouth 2 times a day. May take an additional 20 mg 2 to 3 days per week as needed for worsening swelling 135 Tab 3 04/20/2021 Active Levothyroxine Sodium 200 MCG Oral Tablet (Levoxyl)Indications: Postsurgical hypothyroidism TAKE ONE TABLET BY MOUTH IN THE MORNING AT LEAST 30 MINUTES PRIOR TO BREAKFAST OR OTHER MEDS 90 Tab 1 04/27/2021 Active DULoxetine HCl 30 MG Oral Capsule Delayed Release Particles (Cymbalta) TAKE ONE CAPSULE BY MOUTH DAILY. take with 60mg capsule for total of 90mg 90 Cap 1 04/27/2021 Active CPAP every night at bedtime. 0 Active Gabapentin 300 MG Oral Capsule (Neurontin) Take 300 mg by mouth 2 times a day. 0 Active metOLazone 2.5 MG Oral Tablet (Zaroxolyn) Take 2.5 mg by mouth daily as needed. Do not take unless instructed by provider 0 Active traMADol HCl 50 MG Oral Tablet (Ultram)Indications:C hronic pain syndrome Take 1 Tab by mouth every 8 hours as needed for Pain, Severe. 90 Tab 0 07/20/2021 Active clonazePAM 0.5 MG Oral Tablet (KlonoPIN)Indications :Anxiety state TAKE ONE TABLET BY MOUTH TWICE DAILY 60 Tab 0 07/27/2021 Active Trulicity 4.5 MG/0.5ML Subcutaneous Solution Pen-injector (Dulaglutide) Inject 1 pen under the skin weekly 2 mL 5 07/28/2021 Active documented as of this encounter (statuses as of 08/03/2021) Active Problems Problem Noted Date Hypotension 12/19/2020 [...] as of this encounter (statuses as of 08/03/2021) Resolved Problems Problem Noted Date Resolved Date [...] of inactive term HTN, goal below 140/90 04/09/200310/22/201 0 Overview: Per HTN Taxonomy. DM type 2, not at goal 05/29/2002 9 Overview: Modified per Diabetes protocol #14. TENOSYNOVITIS FOOT-ANKLE 12/26/2001 017 Goiter 01/13/2000 06/28/2011 BACKACHE NOS 08/26/1999 05/24/2017 OBESITY, UNSPECIFIED 08/26/1999 12/23/2009 Overview: Per Obesity Taxonomy Perforation of intestine 017 Overview: COLON Diverticulitis documented as of this encounter (statuses as of 08/03/2021) Immunizations Name Administration Dates Next Due COVID-19 mRNA, LNP-s, No Pre serve, 2-Dose Series ([facility]) 12/29/2020,12/18/2020 Pneumococcal Polysaccharide PPV23 (Pneumovax) 08/22/2009,06/15/2006 Seasonal [...] = 0.6 oz pur e alcohol) rare Sex Assigned at Date Recorded Female 11/07/2019 2:[address] Job Start Date Occupation Industry Not on file Not on file Not on file documented as of this encounter Miscellaneous Notes * Telephone Encounter - ELISSA Mckeon - 08/03/2021 8:07 AM EST Patient is having pain again - she states on both sides - the same as her last injection in April.She would like to do another injection if possibl documented in this encounter Plan of Treatment Upcoming Encounters Date Type Specialty Care Team Description 08/18/2021 Office Visit Sleep Disorders Celsa Tafoya CRNP [address] [place] [address] [address] 08/19/2021 Home Visit Family Medicine Magaly Morales, Community Health Seat Maker [address] [place] [address] 09/08/2021 Home Visit [facility] Vera Capellan RN [address] [address] [address] 10/05/2021 Office Visit Cardiology Rey Woodall MD [address] [address] 10/05/2021 Office Visit Pharmacy [facility] [place] [address] [place] [address] [address] 01/21/2022 Office Visit Family Medicine Kevin Whiteside DO [address] [address] Scheduled Orders Name Type Priority Associated Diagnoses Orde r Schedule INJECT DX/THER SUBSTANCE INTERLAMINAR LUMBAR/SACRAL W IMAGE GUIDE Procedures Routine Lumbar radicular pain Ordered: 08/03/2021 Scheduled Procedures Name Priority Associated Diagnoses Date/Ti me INJECTION SPINE LUMBAR OR SACRAL Lumbar radiculopathy COLONOSCOPY FLEXIBLE PROXIMAL DIAGNOSTIC Recall Colon cancer screening Health Maintenance Due Date Last Done Comments Pneumococcal Vaccine: 65+ Years (2 of 2 - PPSV23) 2020 08/22/2009, 06/15/2006 DIABETES-HGBA1C EVERY 6 MONTHS 05/17/2021 11/17/2020, 01/23/2020, 11/07/2019, Additional history exists COVID-19 Vaccine (3 - Pfizer booster) 06/30/2021 12/29/2020, 12/18/2020 CKD GFR USE SMARTSET 96842 09/19/202103/20, 03/12/2021, 12/25/2020, Additional history exists BREAST CANCER SCREENING DISCUSSION YEARLY AGES 40-75 10/01/2021 10/01/2020, 07/10/2019, 06/23/2018, Additional history exists DIABETES-FOOT EXAM 01/14/2022 01/14/2021, 0 11/07/2019, 01/01/2019, Additional history exists CKD PHOS USE SMARTSET 15344 03/12/202202/24, 11/17/2020, 12/24/2019, Additional history exists DIABETES-URINE MICROALBUMIN EVERY 12 MONTHS 03/12/2022 03/12/2021, 03/12/2021, 12/24/2019, Additional history exists CKD HGB USE SMARTSET 16319 03/20/202203/20, 03/20/2021, 03/12/2021, Additional history exists DIABETES-EYE [...] of this encounter Visit Diagnoses Diagnosis Lumbar radicular pain- Primary Thoracic or lumbosacral neuritis or radiculitis, unspecified documented in this encounter Advance Directives Documents on File Type Date Recorded Patient Turret Punch Operator Expl anation Advanced Directive Advanced Directive [...] Camp Other Health Care [facility] Sp[employer] Teacher [place] Other Health Care Pow er of Sped Teacher Care Teams Scientific Director Relationship Specialty Start Date End Date Kevin Whiteside DO [address] [place] [address] PCP - General Family Medicine 05/01/18 documented as of this encounter
--- OUTSIDE RECORDS SUMMARY | 2023-06-01 04:55 | External Medical Summary | Summary of Care ---
Author Name Unknown Organization [place] [address] Care Team Providers Care Floral Associate Name Role Phone Migue Whiteside DO Primary Care Provider Reason for Visit * Reason Comments eRx-Medication Refill Encounter Details Date Type Department Care Team Description 08/14/2021 Refill Family Practice [facility] [address] [place] [address] Migue Whiteside DO [address] [facility] [place] [address] Allergies Active Allergy Reactions Severity Noted Date Comments Codeine 07/08/2014 hallucination Pollen 05/18/2019 Heparin 09/04/2009 Heparin Induced Thrombocytopenia Hydrocodone Neuro complications (Please comment) 07/28/2020 Empagliflozin Other (Please comment) Medium 05/17/2018 3 yeast infections in 6 weeks after starting Morphine And Related 09/16/1997 Hallucinations Tetanus Toxoid Other (Please comment) 06/15/2011 Passed out documented as of this encounter (statuses as of 08/14/2021) Medications Medication Sig Dispensed Refills Start Date [...] 0 0 Active Blood Glucose Monitoring Suppl (valuescope ULTRA 2) w/Device KIT Use to test BG values 1 Kit 0 0 Active Glucose Blood ([place] GroupTOUCH ULTRA BLUE) STRP Check sugars 3-4 times daily, E11.9 400 Strip 3 0 Active clobetasol propionate (TEMOVATE) 0.05 % creamIndications:Kalee rosas planus Apply to rash on the hands and dorsal feet twice daily x 1 week, then as needed for flares. 30 g 1 0 Active BD Pen Needle Short U/F 31G X 8 MM (Insulin Pen Needle) Use 5 times daily with insulin 200 Each 11 0 Active Magnesium Oxide 400 (241.3 Mg) MG Oral TabletIndications:H ypomagnesemia Take 400 mg by mouth daily. 90 Tab 0 0 Active Additional Information Patient not taking. Reported on 08/13/2021 DULoxetine HCl 60 MG Oral Capsule Delayed Release Particles (CYMBALTA)Indicatio ns:Fibromyalgia,Mod erate episode of recurrent major depressive disorder (HCC),Primary osteoarthritis of both knees Take 1 Cap by mouth daily. Along with 30 mg capsule to total 90 mg daily. 90 Cap 3 1 Active rOPINIRole HCl 2 MG Oral Tablet (Requip)Indications :Restless legs syndrome Take 1 Tab by mouth at bedtime. 90 Tab 3 1 Active Acetaminophen 500 MG Oral Tablet (Acetaminophen Extra Strength) Take 500 mg by mouth every 6 hours as needed. 0 Active Tresiba FlexTouch 100 UNIT/ML Subcutaneous Solution Pen-injector (Insulin Degludec)Indication s:Type 2 diabetes mellitus with hemoglobin A1c goal of 7.0%-8.0% ([facility]) Inject 60 Units under the skin daily. 45 mL 3 1 Active Meclizine HCl 12.5 MG Oral Tablet (Antivert)Indicatio ns:Vertigo Take 1 Tab by mouth 3 times a day as needed for Dizziness. 30 Tab 1 1 Active Levothyroxine Sodium 50 MCG Oral Tablet (Levoxyl)Indication s:Hyperparathyroidi sm, secondary renal (HCC) Take 1 Tab by mouth daily. (at least 30 min prior to breakfast or other meds) 30 Tab 11 1 Active Colchicine 0.6 MG Oral TabletIndications:L eukocytoclastic vasculitis (HCC) Take 1/2 tab daily 45 Tab 1 1 Active Dicyclomine HCl 20 MG Oral Tablet (Bentyl) Take 1 Tab by mouth 4 times a day as needed for Pain, Mild. For abdominal pain 120 Tab 11 1 Active Nortriptyline HCl 50 MG Oral Capsule (Pamelor)Indication s:Fibromyalgia Take 1 Cap by mouth at bedtime. 90 Cap 1 1 Active Cyclobenzaprine HCl 10 MG Oral Tablet (Flexeril)Indicatio ns:Spinal stenosis of lumbar region without neurogenic claudication,Lumbar radiculopathy TAKE ONE TABLET BY MOUTH AT BEDTIME NEEDED FOR SPASM 30 Tab 0 1 Active Nerve Pain Relief Sublingual Tablet SublingualIndicatio ns:pt taking Nervive, nerve relief tablets at bedtime Place under the tongue. Indications: pt taking Nervive, nerve relief tablets at bedtime 0 Active NovoLOG FlexPen 100 UNIT/ML Subcutaneous Solution Pen-injector (insulin aspart)Indications: Type 2 diabetes mellitus with hemoglobin A1c goal of 7.0%-8.0% ([facility]) Inject 40 units with meals + sliding scale 1 units for every 25 units BG > 150. 121 mL 3 1 Active Furosemide 40 MG Oral Tablet (Lasix)Indications: Chronic diastolic congestive heart failure (HCC) Take 0.5 Tabs by mouth 2 times a day. May take an additional 20 mg 2 to 3 days per week as needed for worsening swelling 135 Tab 3 1 Active Levothyroxine Sodium 200 MCG Oral Tablet (Levoxyl)Indication s:Postsurgical hypothyroidism TAKE ONE TABLET BY MOUTH IN THE MORNING AT LEAST 30 MINUTES PRIOR TO BREAKFAST OR OTHER MEDS 90 Tab 1 08/02/202 1 Active CPAP every night at bedtime. [...] needed for Pain, Severe. 90 Tab 0 1 Active clonazePAM 0.5 MG Oral Tablet (KlonoPIN)Indicatio ns:Anxiety state TAKE ONE TABLET BY MOUTH TWICE DAILY 60 Tab 0 1 Active Trulicity 4.5 MG/0.5ML Subcutaneous Solution Pen-injector (Dulaglutide) Inject 1 pen under the skin weekly 2 mL 5 1 Active Ondansetron HCl 4 MG Oral Tablet (Zofran)Indications :Vertigo Take 1 Tablet by mouth every 6 hours as needed for Nausea. 30 Tablet 0 1 Active traZODone HCl 50 MG Oral Tablet (Desyrel) Take 1 Tablet by mouth at bedtime. 90 Tablet 1 1 Active DULoxetine HCl 30 MG Oral Capsule Delayed Release Particles (Cymbalta) TAKE ONE CAPSULE BY MOUTH ONE TIME DAILY. TAKE WITH 60 MG CAPSULE FOR A TOTAL OF 90 MG 90 Capsule 1 1 Active DULoxetine HCl 30 MG Oral Capsule Delayed Release Particles (Cymbalta) TAKE ONE CAPSULE BY MOUTH DAILY. take with 60mg capsule for total of 90mg 90 Cap 1 1 08/14/20 21 Discontinued documented as of this encounter (statuses as of 08/14/2021) Active Problems Problem Noted Date Hypotension 12/19/2020 [...] as of this encounter (statuses as of 08/14/2021) Resolved Problems Problem Noted Date Resolved Date [...] as of this encounter (statuses as of 08/14/2021) Immunizations Name Administration Dates Next Due COVID-19 [...] Telephone Encounter - Enrico Mesa RPh - 08/14/2021 11:19 AM EST Signed Prescriptions: Disp Refills DULoxetine HCl 30 MG Oral Capsule Delayed *90 Cap*1 Sig: TAKE ONE CAPSULE BY MOUTH ONE TIME DAILY. TAKE WITH 60 MG CAPSULE FOR A TOTAL OF 90 MGAuthorizing Provider: MIGUE WHITESIDE User: ENRICO MESA documented in this encounter Plan of Treatment Upcoming Encounters Date Type Specialty Care Team Description 08/18/2021 Office Visit Sleep Disorders Celsa Tafoya CRNP [address] [address] 08/19/2021 Home Visit Family Medicine Magaly Morales, [facility] Slasher Operator [address] [place] [address] 09/08/2021 Home Visit [facility] Vera Capellan, RN [address] [address] 10/05/2021 Office Visit Cardiology Rey Woodall MD [address] [address] 10/05/2021 Office Visit Pharmacy [facility] [place] [address] [address] 01/21/2022 Office Visit Family Medicine Migue Whiteside DO [address] [address] Scheduled Procedures Name Priority Associated Diagnoses Date/Ti me COLONOSCOPY FLEXIBLE PROXIMAL DIAGNOSTIC Recall Colon cancer screening Health Maintenance Due Date Last Done Comments Pneumococcal Vaccine: 65+ Years (2 of 2 - PPSV23) 2020 08/22/2009, 06/15/2006 DIABETES-HGBA1C EVERY 6 MONTHS 05/17/2021 11/17/2020, 01/23/2020, 11/07/2019, Additional history exists COVID-19 Vaccine (3 - Booster) 06/30/2021 12/29/2020, 12/18/2020 CKD GFR USE SMARTSET 73759 09/19/202103/20, 03/12/2021, 12/25/2020, Additional history exists BREAST CANCER SCREENING DISCUSSION YEARLY AGES 40-75 10/01/2021 10/01/2020, 07/10/2019, 06/23/2018, Additional history exists DIABETES-FOOT EXAM 01/14/2022 01/14/2021, 0 11/07/2019, 01/01/2019, Additional history exists CKD PHOS USE SMARTSET 90591 03/12/202202/24, 11/17/2020, 12/24/2019, Additional history exists DIABETES-URINE MICROALBUMIN EVERY 12 MONTHS 03/12/2022 03/12/2021, 03/12/2021, 12/24/2019, Additional history exists CKD HGB USE SMARTSET 14521 03/20/202203/20, 03/20/2021, 03/12/2021, Additional history exists DIABETES-EYE [...] Documents on File Type Date Recorded Patient On Site Coordinator Expl anation Advanced Directive Advanced Directive [...] Other Health Care [facility] Fruit Sorter [place] Other Health Care Pow er of Fruit Sorter Care Teams Floral Associate Relationship Specialty Start Date End Date Migue Whiteside DO [address] [address] PCP - General Family Medicine 05/01/18 documented as of this encounter
--- OUTSIDE RECORDS SUMMARY | 2023-06-01 04:55 | External Medical Summary | Summary of Care ---
Author Name Unknown Organization [place] [address] Care Team Providers Care Seo Executive Name Role Phone Kevin Whiteside DO Primary Care Provider Reason for Visit * Reason Onset Date Comments [facility]: Maintenance 07/31/2021 Encounter Details Date Type Department Care Team Description 07/31/2021 Telephone [facility] [address] [facility] [place] [id number] Services, Scheduling [address] [place] [address] [facility]: Maintenance Allergies Active Allergy Reactions Severity Noted Date Comments Codeine 07/08/2014 hallucination Pollen 05/18/2019 Heparin 09/04/2009 Heparin Induced Thrombocytopenia Hydrocodone Neuro complications (Please comment) 07/28/2020 Empagliflozin Other (Please comment) Medium 05/17/2018 3 yeast infections in 6 weeks after starting Morphine And Related 09/16/1997 Hallucinations Tetanus Toxoid Other (Please comment) 06/15/2011 Passed out documented as of this encounter (statuses as of 07/31/2021) Medications Medication Sig Dispensed Refills Start Date [...] 0 04/08/2020 Active Blood Glucose Monitoring Suppl (PosterousTOUCH ULTRA 2) w/Device KIT Use to test [...] MCG Oral Tablet (Levoxyl)Indications: Hyperparathyroidism, secondary renal (HCC) Take 1 Tab by mouth daily. (at least 30 min prior to breakfast or other meds) 30 Tab 11 01/14/2021 Active traZODone HCl 50 MG Oral Tablet (Desyrel) TAKE ONE TABLET BY MOUTH AT BEDTIME 90 Tab 1 02/06/2021 Active Colchicine 0.6 MG Oral TabletIndications:Jacobo kocytoclastic vasculitis (HCC) Take 1/2 tab daily 45 [...] Tablet (Lasix)Indications:Ch ronic diastolic congestive heart failure (HCC) Take 0.5 [...] as of this encounter (statuses as of 07/31/2021) Active Problems Problem Noted Date Hypotension 12/19/2020 [...] 10/14/2014 Overview: ICD-10 update of inactive term [place] filter in place 08/19/2014 History of pulmonary embolus (PE) 2013 Statin intolerance 07/16/2014 HTN, goal below 130/80 02/22/2014 Venous insufficiency 02/07/2013 ELISSA (obstructive sleep apnea) 09/16/2011 Overview: CPAP 11 cwp Mild, AHI 11.3 but with significant nocturnal hypoxemia Dicks Postsurgical hypothyroidism 06/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 documented as of this encounter (statuses as of 07/31/2021) Resolved Problems Problem Noted Date Resolved Date [...] as of this encounter (statuses as of 07/31/2021) Immunizations Name Administration Dates Next Due COVID-19 mRNA, LNP-s, No Pre serve, 2-Dose Series ([employer]) 12/29/2020,12/18/2020 Pneumococcal Polysaccharide PPV23 (Pneumovax) 08/22/2009,06/15/2006 Seasonal [...] 08/26 Smokeless Tobacco: Never Used Alcohol Use Drinks/Week oz/Week Comments Not Currently rare Food Insecurity Answer Date Recorded Within the past 12 months, y ou worried that your food would run out before you got money to buy more. Never true Within the past 12 months, t he food you bought just didn't last and you didn't have money to get more. Never true Sex Assigned at Date Recorded Female 11/07/2019 2:[address] Job Start Date Occupation Industry Not on file Not on file Not on file documented as of this encounter Miscellaneous Notes * Telephone Encounter - Vickie Madsen OSA - 07/31/2021 5:20 PM EDT Pt needs CURT f/u with Dr. Ahn for back injection - having increased pain. Please assist with scheduling. ELISSA Kaufman documented in this encounter Plan of Treatment Upcoming Encounters Date Type Specialty Care Team Description 08/18/2021 Office Visit Sleep Disorders Celsa Tafoya CRNP [address] [address] [phone] 08/19/2021 Home Visit Family Medicine Magaly Morales, [facility] Senior Javascript Engineer [address] [place] [address] [phone] 09/08/2021 Home Visit [facility] Vera Capellan RN [address] [address] [phone] 10/05/2021 Office Visit Cardiology Rey Woodall MD [address] [address] [phone] 10/05/2021 Office Visit Pharmacy [facility] [place] [address] [address] 01/21/2022 Office Visit Family Medicine Kevin Whiteside DO [address] [address] [phone] Health Maintenance Due Date Last Done Comments Pneumococcal Vaccine: 65+ Years (2 of 2 - PPSV23) 2020 08/22/2009, 06/15/2006 DIABETES-HGBA1C EVERY 6 MONTHS 05/17/2021 11/17/2020, 01/23/2020, 11/07/2019, Additional history exists COVID-19 Vaccine (3 - Pfizer booster) 06/30/2021 12/29/2020, 12/18/2020 CKD GFR USE SMARTSET 44606 09/19/202103/20, 03/12/2021, 12/25/2020, Additional history exists BREAST CANCER SCREENING DISCUSSION YEARLY AGES 40-75 10/01/2021 10/01/2020, 07/10/2019, 06/23/2018, Additional history exists DIABETES-FOOT EXAM 01/14/2022 01/14/2021, 0 11/07/2019, 01/01/2019, Additional history exists CKD PHOS USE SMARTSET 25015 03/12/202202/24, 11/17/2020, 12/24/2019, Additional history exists DIABETES-URINE MICROALBUMIN EVERY 12 MONTHS 03/12/2022 03/12/2021, 03/12/2021, 12/24/2019, Additional history exists CKD HGB USE SMARTSET 81439 03/20/202203/20, 03/20/2021, 03/12/2021, Additional history exists DIABETES-EYE [...] Documents on File Type Date Recorded Patient Cosmetic Sales Advisor Expl anation Advanced Directive 08/22/2009 12:00 AM Advanced Directive 05/28/2011 12:00 AM Advanced Directive 06/11/2011 12:00 AM Advanced Directive Advanced Directive Advanced Directive Advanced [...] Advanced Directive POLST 03/19/2020 4:25 PM POLST Latest Code [...] Camp Other Health Care [facility] of Radio Host Princess Allen Other Health Care Pow er of Radio Host
--- OUTSIDE RECORDS SUMMARY | 2023-06-01 04:55 | External Medical Summary | Summary of Care ---
Author Name Unknown Organization [facility] Address [facility] [place] [address] Care Team Providers Care Heavy Duty Custodian Name Role Phone Kevin Whiteside DO Primary Care Provider Reason for Visit * Reason Comments [facility]: Maintenance Encounter Details Date Type Department Care Team Description 08/18/2021 Home Visit [facility], [facility] [address] [place] [address] Rema Real TELEVISION TUBE INSPECTOR [address] [facility] [place] [address] Allergies Active Allergy Reactions Severity Noted Date Comments Codeine 07/08/2014 hallucination Pollen 05/18/2019 Heparin 09/04/2009 Heparin Induced Thrombocytopenia Hydrocodone Neuro complications (Please comment) 07/28/2020 Empagliflozin Other (Please comment) Medium 05/17/2018 3 yeast infections in 6 weeks after starting Morphine And Related 09/16/1997 Hallucinations Tetanus Toxoid Other (Please comment) 06/15/2011 Passed out documented as of this encounter (statuses as of 08/18/2021) Medications Medication Sig Dispensed Refills Start Date [...] 90 Cap 3 12/18/2019 Active DIURETIC TITRATION PLANIndications:Automotive Warranty Administrator 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 1 Each 0 04/08/2020 Active Blood Glucose Monitoring Suppl ([employer]TOUCH ULTRA 2) w/Device KIT Use to test [...] of 7.0%-8.0% ([facility]) Inject 60 Units under the skin [...] hronic diastolic congestive heart failure ([facility]) Take 0.5 Tabs by mouth 2 [...] as of this encounter (statuses as of 08/18/2021) Active Problems Problem Noted Date Hypotension 12/19/2020 [...] as of this encounter (statuses as of 08/18/2021) Resolved Problems Problem Noted Date Resolved Date [...] as of this encounter (statuses as of 08/18/2021) Immunizations Name Administration Dates Next Due COVID-19 mRNA, LNP-s, No Pre serve, 2-Dose Series (oNoise) 12/29/2020,12/18/2020 Pneumococcal Polysaccharide PPV23 (Pneumovax) 08/22/2009,06/15/2006 Seasonal [...] as of this encounter Progress Notes * Rema Real, ELISABET - 08/18/2021 4:02 PM EST [facility] Social Work Return Visit Is this for a hospital or rehab discharge to home? No Support System in the home: No, did apply for Options through [employer], on wait list, has PERS Support System outside of the home: Yes - : Informal Support (Family and Friends) Brother and his family, Jessenia friend Transportation: Drives Health Care Benefits: Has health insurance and is adequate to meet needs ?: no DME Equipment: Walker, cane, shower chair Ability to Complete: ADLs and IADLs [place], does care for self but bathing is an issue-getting into tub Life Planning: Yes: JESSENIA MENTAL STATUS EVALUATION: Orientation: Alert and Oriented to person, place and time Appearance: Age-appropriate Eye Contact: Good Behavior: Cooperative Speech: Normal pitch, Normal rate and Normal volume Mood: Tired of feeling bad, See Dr Garcia , but doing well overall. Mood Persistence: Cats, TV are supports Affect: Intensity: Normal, Range: Normal, Type: Appropriate Thought Process: Goals directed Thought Content:Within normal limits Attention: Normal Sleep: Good Interest: continues interest Guilt/Self-blame: none Energy: No change Concentration: Good Appetite: Good Psychomotor agitation/retardation: none Sex Drive: not addessed Substance Abuse Use / History: Denies use of substances Anxiety: No Major physical illness: Yes Recent losses or change in socio economic status: No Assessment: Based on these risk and protective factors, this patient's suicide risk is assessed to be: Minimal Depression Test Summary, Results are Patient Reported: The value you specified in the flowsheet rows parameter was overridden by senior unix administrator build. Remove the value in the flowsheet rows parameter or contact an senior unix administrator. The value you specified in the flowsheet rows parameter was overridden by senior unix administrator build. Remove the value in the flowsheet rows parameter or contact an senior unix administrator. The value you specified in the flowsheet rows parameter was overridden by senior unix administrator build. Remove the value in the flowsheet rows parameter or contact an senior unix administrator.. The value you specified in the flowsheet rows parameter was overridden by senior unix administrator build. Remove the value in the flowsheet rows parameter or contact an senior unix administrator. 1. Little interest or pleasure in doing things The value you specified in the flowsheet rows parameter was overridden by senior unix administrator build. Remove the value in the flowsheet rows parameter or contact an senior unix administrator. 2. Feeling down, depressed or hopeless The value you specified in the flowsheet rows parameter was overridden by senior unix administrator build. Remove the value in the flowsheet rows parameter or contact an senior unix administrator. 3. Trouble falling or staying asleep, or sleeping too much The value you specified in the flowsheetrows parameter was overridden by senior unix administrator build. Remove the value in the flowsheet rows parameter or contact an senior unix administrator. 4. Poor appetite or overeating The value you specified in the flowsheet rows parameter was overridden by senior unix administrator build. Remove the value in the flowsheet rows parameter or contact an senior unix administrator. 5. Feeling tired of having little energy The value you specified in the flowsheet rows parameter was overridden by senior unix administrator build. Remove the value in the flowsheet rows parameter or contact an senior unix administrator. 6. Feeling bad about yourself - or that you are a failure, or have let yourself of your family downThe value you specified in the flowsheet rows parameter was overridden by senior unix administrator build. Remove the value in the flowsheet rows parameter or contact an senior unix administrator. 7. Trouble concentrating on things, such as reading the newspaper or watching television The value you specified in the flowsheet rows parameter was overridden by senior unix administrator build. Remove the value in the flowsheet rows parameter or contact an senior unix administrator. 8. Moving or speaking so slowly that other people could have noticed. Or the opposite being so fidgety or restless that you have been moving around a lot more than usual The value you specified in the flowsheet rows parameter was overridden by senior unix administrator build. Remove the value in the flowsheet rows parameter or contact an senior unix administrator. 9. Thoughts that you would be better off , or of hurting yourself The value you specified in the flowsheet rows parameter was overridden by senior unix administrator build. Remove the value in the flowsheet rows parameter or contact an senior unix administrator. Diagnosed Health Conditions: Patient Active Problem List Diagnosis Date Noted Hypotension [I95.9] 12/19/2020 Spinal stenosis of lumbar [...] of 50.0-59.9, adult ([facility]) [E66.01, Z68.43] 06/27/2017 Per Obesity protocol #1 - Per Obesity Taxonomy ICD-10 update of inactive term Gastroesophageal reflux disease with esophagitis [K21.00] 03/04/2017 Restless legs syndrome [G25.81] 03/25/2016 Fibromyalgia [M79.7] 02/02/2016 Abnormality of gait [R26.9] 02/02/2016 Type 2 diabetes mellitus with hemoglobin A1c goal of 7.0%-8.0% ([facility]) [E11.9] 10/14/2014 ICD-10 update of inactive term [...] Reconciliation: Taking all medication as directed?: Yes Barriers to Treatment: No identified barriers Social Work Goals/Interventions: Behavioral Health needs: Yes, Reinforced Behavioral Health services already In place Drug and Alcohol needs: No needs identified at this time Complex Psychosocial needs: Needs met Plan: STEFANY met with Stephanie for follow up and supportive visits. Stephanie is now on the [facility] wait list for Options program. She has the PERS unit. She continues to drive and care for self and do IADL's. She does worry about safety with bathing due to tub but she is on wait list for assistance should she choose to accept assistance. Apartment is cluttered-she tries to clean a little at a time. Stephanie sees Dr Garcia for supportive visit every other week. She goes to PT weekly. She maintains contact with friends and family regularly. She reports decrease in feelings of isolation since our first visit and during the height of the pandemic. STEFANY does see Stephanie taking advantage of care and supports offered and improved mood since our first visit. She does express frustration with chronically not feeling well and this is something she works to manage. STEFANY notified Stephanie of her leaving [facility]. STEFANY did discuss need for follow up. She does not feel currentneed and will notify LEXI Gamez should that change and STEFANY consult is needed. STEFANY will close out her case with this visit but notify LEXI GREEN to monitor for future needs. Follow Up Appointment: No follow up scheduled. documented in this encounter Plan of Treatment Upcoming Encounters Date Type Specialty Care Team Description 08/19/2021 Home Visit Family Medicine Magaly Morales, [facility] Educator [address] [place] [address] 09/08/2021 Home Visit [facility] Vera Capellan RN [address] [place] [address] [address] 10/05/2021 Office Visit Cardiology Rey Woodall MD [address] [address] [address] 10/05/2021 Office Visit Pharmacy [facility] Jer[facility] [address] [place] [address] 01/21/2022 Office Visit Family Medicine Kevin Whiteside DO [address] [place] [address] [address] Scheduled Procedures Name Priority Associated Diagnoses Date/Ti me COLONOSCOPY FLEXIBLE PROXIMAL DIAGNOSTIC Recall Colon cancer screening Health Maintenance Due Date Last Done Comments Pneumococcal Vaccine: 65+ Years (2 of 2 - PPSV23) 2020 08/22/2009, 06/15/2006 DIABETES-HGBA1C EVERY 6 MONTHS 05/17/2021 11/17/2020, 01/23/2020, 11/07/2019, Additional history exists COVID-19 Vaccine (3 - Booster) 06/30/2021 12/29/2020, 12/18/2020 CKD GFR USE SMARTSET 57542 09/19/202103/20, 03/12/2021, 12/25/2020, Additional history exists BREAST CANCER SCREENING DISCUSSION YEARLY AGES 40-75 10/01/2021 10/01/2020, 07/10/2019, 06/23/2018, Additional history exists DIABETES-FOOT EXAM 01/14/2022 01/14/2021, 0 11/07/2019, 01/01/2019, Additional history exists CKD PHOS USE SMARTSET 24223 03/12/202202/24, 11/17/2020, 12/24/2019, Additional history exists DIABETES-URINE MICROALBUMIN EVERY 12 MONTHS 03/12/2022 03/12/2021, 03/12/2021, 12/24/2019, Additional history exists CKD HGB USE SMARTSET 04273 03/20/202203/20, 03/20/2021, 03/12/2021, Additional history exists DIABETES-EYE [...] Documents on File Type Date Recorded Patient Cold Patcher Expl anation Advanced Directive Advanced Directive Advanced [...] Camp Other Health Care Hayden r of Perinatal Nurse Princess Allen Other Health Care Pow er of Perinatal Nurse Care Teams Heavy Duty Custodian Relationship Specialty Start Date End Date Kevin Whiteside DO [address] [place] [address] [address] PCP - General Family Medicine 05/01/18 documented as of this encounter
--- OUTSIDE RECORDS SUMMARY | 2023-06-01 04:55 | External Medical Summary | Summary of Care ---
Author Name Unknown Organization [place] [address] Care Team Providers Care Social Work Coordinator Name Role Phone Migue Whiteside DO Primary Care Provider Reason for Visit * Reason Onset Date Comments Medication Refill 08/09/2021 Encounter Details Date Type Department Care Team Description 08/09/[address] [facility] [address] [place] [address] Medina Fuentes PA-C [address] [place] [address] Vertigo Allergies Active Allergy Reactions Severity Noted Date Comments Codeine 07/08/2014 hallucination Pollen 05/18/2019 Heparin 09/04/2009 Heparin Induced Thrombocytopenia Hydrocodone Neuro complications (Please comment) 07/28/2020 Empagliflozin Other (Please comment) Medium 05/17/2018 3 yeast infections in 6 weeks after starting Morphine And Related 09/16/1997 Hallucinations Tetanus Toxoid Other (Please comment) 06/15/2011 Passed out documented as of this encounter (statuses as of 08/10/2021) Medications Medication Sig Dispensed Refills Start Date [...] 0 04/08/2020 Active Blood Glucose Monitoring Suppl (Opiatalk ULTRA 2) w/Device KIT Use to test [...] of 7.0%-8.0% ([facility]) Inject 60 Units under the skin [...] 03/02/2021 Active Nerve Pain Relief Sublingual Tablet SublingualIndicatio [...] congestive heart failure ([facility]) Take 0.5 Tabs by mouth 2 [...] for Nausea. 30 Tablet 0 08/10/2021 Active Ondansetron HCl 4 MG Oral Tablet (Zofran)Indications :Vertigo Take 1 Tab by mouth every 6 hours as needed for Nausea. 30 Tab 0 12/29/2020 1 Discontinue d(Refill) traZODone HCl 50 MG Oral Tablet (Desyrel) TAKE ONE TABLET BY MOUTH AT BEDTIME 90 Tab 1 02/06/2021 1 Discontinue d(Refill) documented as of this encounter (statuses as of 08/10/2021) Active Problems Problem Noted Date Hypotension 12/19/2020 [...] 10/14/2014 Overview: ICD-10 update of inactive term [place] filter in place 08/19/2014 History of pulmonary embolus (PE) 2013 Statin intolerance 07/16/2014 HTN, goal below 130/80 02/22/2014 Venous insufficiency 02/07/2013 ELISSA (obstructive sleep apnea) 09/16/2011 Overview: CPAP 11 cwp Mild, AHI 11.3 but with significant nocturnal hypoxemia Dicks Postsurgical hypothyroidism 06/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 documented as of this encounter (statuses as of 08/10/2021) Resolved Problems Problem Noted Date Resolved Date [...] as of this encounter (statuses as of 08/10/2021) Immunizations Name Administration Dates Next Due COVID-19 mRNA, LNP-s, No Pre serve, 2-Dose Series (JustShareIt) 12/29/2020,12/18/2020 Pneumococcal Polysaccharide PPV23 (Pneumovax) 08/22/2009,06/15/2006 Seasonal [...] Telephone Encounter - Migue Whiteside DO - 08/10/2021 11:41 AM EST Signed Prescriptions: Disp Refills Ondansetron HCl 4 MG Oral Tablet (Zofran) 30 Tab*0 Sig: Take 1 Tablet by mouth every 6 hours as needed for Nausea. Authorizing Provider: MIGUE WHITESIDE * Telephone Encounter - Stephanie Cook MED ASSIST - 08/10/2021 9:39 AM EST Pending Prescriptions: Disp Refills Ondansetron HCl 4 MG Oral Tablet (Zofran) 30 Tab*0 Sig: Take 1 Tablet by mouth every 6 hours as needed for Nausea. documented in this encounter Plan of Treatment Upcoming Encounters Date Type Specialty Care Team Description 08/13/2021 Hospital Encounter Surgery Raj Ahn, [address] [address] 08/13/2021 Surgery Surgery Raj Ahn, [address] [place] [address] INJECTION SPINE LUMBAR OR SACRAL 08/18/2021 Office Visit Sleep Disorders Celsa Tafoya CRNP [address] [address] [address] 08/19/2021 Home Visit Family Medicine Magaly Morales, [facility] [address] [place] [address] 09/08/2021 Home Visit [facility] Vera Capellan RN [address] [place] [address] [address] 10/05/2021 Office Visit Cardiology Rey Woodall MD [address] [address] 10/05/2021 Office Visit Pharmacy [facility] Jeramie [address] [address] [address] 01/21/2022 Office Visit Family Medicine Migue Whiteside DO [address] [address] Scheduled Procedures Name Priority Associated Diagnoses Date/Ti me INJECTION SPINE LUMBAR OR SACRAL Lumbar radiculopathy 08/13/2021 2:00 PM EST COLONOSCOPY FLEXIBLE PROXIMAL DIAGNOSTIC Recall Colon cancer screening Health Maintenance Due Date Last Done Comments Pneumococcal Vaccine: 65+ Years (2 of 2 - PPSV23) 2020 08/22/2009, 06/15/2006 DIABETES-HGBA1C EVERY 6 MONTHS 05/17/2021 11/17/2020, 01/23/2020, 11/07/2019, Additional history exists COVID-19 Vaccine (3 - Booster) 06/30/2021 12/29/2020, 12/18/2020 CKD GFR USE SMARTSET 59906 09/19/202103/20, 03/12/2021, 12/25/2020, Additional history exists BREAST CANCER SCREENING DISCUSSION YEARLY AGES 40-75 10/01/2021 10/01/2020, 07/10/2019, 06/23/2018, Additional history exists DIABETES-FOOT EXAM 01/14/2022 01/14/2021, 0 11/07/2019, 01/01/2019, Additional history exists CKD PHOS USE SMARTSET 23145 03/12/202202/24, 11/17/2020, 12/24/2019, Additional history exists DIABETES-URINE MICROALBUMIN EVERY 12 MONTHS 03/12/2022 03/12/2021, 03/12/2021, 12/24/2019, Additional history exists CKD HGB USE SMARTSET 15596 03/20/202203/20, 03/20/2021, 03/12/2021, Additional history exists DIABETES-EYE [...] Visit Diagnoses Diagnosis Vertigo Dizziness and giddiness Lumbar radiculopathy Thoracic or lumbosacral neuritis or radiculitis, unspecified documented in this encounter Advance Directives Documents on File Type Date Recorded Patient Gas Appliance Servicer Helper Expl anation Advanced Directive Advanced Directive [...] Camp Other Health Care Hayden r of National Sales Trainer Princess Allen Other Health Care Pow er of National Sales Trainer Care Teams Social Work Coordinator Relationship Specialty Start Date End Date Migue Whiteside DO [address] [place] [address] PCP - General Family Medicine 05/01/18 documented as of this encounter
--- OUTSIDE RECORDS SUMMARY | 2023-06-01 04:55 | External Medical Summary | Summary of Care ---
Author Name Unknown Organization [place] [address] Care Team Providers Care Home Organizer Name Role Phone Migue Whiteside DO Primary Care Provider Reason for Visit * Reason Onset Date Comments Medication Refill 08/09/2021 Encounter Details Date Type Department Care Team Description 08/09/2021 Refill [facility] [address] [place] [address] Migue Whiteside DO [address] [place] [address] Allergies Active Allergy Reactions Severity Noted [...] 0 04/08/2020 Active Blood Glucose Monitoring Suppl (O2 Secure WirelessUCH ULTRA 2) w/Device KIT Use to test [...] Oral Tablet (Levoxyl)Indication s:Hyperparathyroidi sm, secondary renal ([facility]) Take 1 Tab by mouth daily. 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 90 Tablet 1 08/10/2021 Active Ondansetron HCl 4 MG Oral [...] 11:41 AM EST Signed Prescriptions: Disp Refills traZODone HCl 50 MG Oral Tablet (Desyrel) 90 Tab*1 Sig: Take 1 Tablet by mouth at bedtime. Authorizing Provider: MIGUE WHITESIDE * Telephone Encounter - Stephanie Cook MED ASSIST - 08/10/2021 9:39 AM EST Pending Prescriptions: Disp Refills traZODone HCl 50 MG Oral Tablet (Desyrel) 90 Tab*1 Sig: Take 1 Tablet by mouth at bedtime. documented in this encounter Plan of Treatment Upcoming Encounters Date Type Specialty Care Team Description 08/13/2021 Hospital Encounter Surgery Raj Ahn, DO [address] [place] [address] 08/13/2021 Surgery Surgery Raj Ahn, [address] [address] INJECTION SPINE LUMBAR OR SACRAL 08/18/2021 Office Visit Sleep Disorders Celsa Tafoya CRNP [address] [place] [address] 08/19/2021 Home Visit Family Medicine Magaly Morales, [facility] Loom [employer]er [address] [place] [address] 09/08/2021 Home Visit [facility] Vera Capellan RN [address] [place] [address] 10/05/2021 Office Visit Cardiology Rey Woodall MD [address] [place] [address] 10/05/2021 Office Visit Pharmacy Dan[facility] Ordaz Jer[address] [place] [address] 01/21/2022 Office Visit Family Medicine Migue Whiteside DO [address] [place] [address] Scheduled Procedures Name Priority Associated Diagnoses Date/Ti [...] 06/30/2021 12/29/2020, 12/18/2020 CKD GFR USE SMARTSET 84459 09/19/202103/20, 03/12/2021, 12/25/2020, Additional history exists BREAST CANCER SCREENING DISCUSSION YEARLY AGES 40-75 10/01/2021 10/01/2020, 07/10/2019, 06/23/2018, Additional history exists DIABETES-FOOT EXAM 01/14/2022 01/14/2021, 0 11/07/2019, 01/01/2019, Additional history exists CKD PHOS USE SMARTSET 29466 03/12/202202/24, 11/17/2020, 12/24/2019, Additional history exists DIABETES-URINE MICROALBUMIN EVERY 12 MONTHS 03/12/2022 03/12/2021, 03/12/2021, 12/24/2019, Additional history exists CKD HGB USE SMARTSET 30045 03/20/202203/20, 03/20/2021, 03/12/2021, Additional history exists DIABETES-EYE [...] on File Type Date Recorded Patient Natural History Collections Curator Expl anation Advanced Directive Advanced Directive [...] Camp Other Health Care Hayden r of Social Worker Psychiatric Princess Staplesfany Other Health Care Pow er of Social Worker Psychiatric Care Teams Home Organizer Relationship Specialty Start Date End Date Migue Whiteside, [address] [place] [address] PCP - General Family Medicine 05/01/18 documented as of this encounter
--- OUTSIDE RECORDS SUMMARY | 2023-06-01 04:56 | External Medical Summary | Summary of Care ---
Author Name Unknown Organization [facility] Address [place] [address] Care Team Providers Care Residential Support Specialist Name Role Phone Kevin Whiteside DO Primary Care Provider Reason for Visit * Reason Onset Date Comments [facility]: Maintenance 07/29/2021 Encounter Details Date Type Department Care Team Description 07/29/2021 Scheduled Telephone [facility], [facility] [address] [place] [address] Coordinator, [facility] [address] [place] [address] [phone] Allergies Active Allergy Reactions Severity Noted Date Comments Codeine 07/08/2014 hallucination Pollen 05/18/2019 Heparin 09/04/2009 Heparin Induced Thrombocytopenia Hydrocodone Neuro complications (Please comment) 07/28/2020 Empagliflozin Other (Please comment) Medium 05/17/2018 3 yeast infections in 6 weeks after starting Morphine And Related 09/16/1997 Hallucinations Tetanus Toxoid Other (Please comment) 06/15/2011 Passed out documented as of this encounter (statuses as of 07/29/2021) Medications Medication Sig Dispensed Refills Start Date [...] 0 04/08/2020 Active Blood Glucose Monitoring Suppl (VideumUCH ULTRA 2) w/Device KIT Use to test [...] MCG Oral Tablet (Levoxyl)Indications: Hyperparathyroidism, secondary renal ([facility]) Take 1 Tab by mouth daily. (at least 30 min prior to breakfast or other meds) 30 Tab 11 01/14/2021 Active traZODone HCl 50 MG Oral Tablet (Desyrel) TAKE ONE TABLET BY MOUTH AT BEDTIME 90 Tab 1 02/06/2021 Active Colchicine 0.6 MG Oral TabletIndications:Jacobo kocytoclastic vasculitis ([facility]) Take 1/2 tab daily 45 Tab 1 [...] Tablet (Lasix)Indications:Ch ronic diastolic congestive heart failure ([facility]) Take [...] as of this encounter (statuses as of 07/29/2021) Active Problems Problem Noted Date Hypotension 12/19/2020 [...] as of this encounter (statuses as of 07/29/2021) Resolved Problems Problem Noted Date Resolved Date [...] as of this encounter (statuses as of 07/29/2021) Immunizations Name Administration Dates Next Due COVID-19 mRNA, LNP-s, No Pre serve, 2-Dose Series (Moblication) 12/29/2020,12/18/2020 Pneumococcal Polysaccharide PPV23 (Pneumovax) 08/22/2009,06/15/2006 Seasonal [...] encounter Miscellaneous Notes * Telephone Encounter - Lucia Garcia CRNP - 07/29/2021 1:45 PM EDT Please follow up again tomorrow. Concerned with abd pain 05/05--could be from reported diarrhea the night before? Fevers? Pain worsening pain if palpated? If pain persists, need to consider imaging and labs. If abd pain becomes severe should report to ED. * Telephone Encounter - Lisandra Thomas LPN - 07/29/2021 11:05 AM EDT Follow up call to assess fluid status, weight, abdominal pain. Spoke with Stephanie. She is feeling a little better today. Continues with right sided lower abdominal pain which she rates 8/10 on pain scale. Taking Tylenol (last dose 8 am today) and Tramadol at hs yesterday. Appetite is decreased. Advised liquid diet yesterday. She is eating applesauce and part of a waffle. She states "it's too hard to regulate her sugar on a liquid diet". Glucose: 159 this am Weight was down to 341, yesterday 350 lb. Lower extremity edema is at baseline today. She had a couple episodes of diarrhea last night. Stopped taking dulcolax. Breathing is at baseline today. Not wearing oxygen at present. Pulse oximeter is broken, unable to check. She can't take magnesium. It makes her constipated even with taking stool softeners. Will call for any changes/worsening of symptoms. Provided call back number . Routed to care team as FYJailyn. documented in this encounter Plan of Treatment Upcoming Encounters Date Type Specialty Care Team Description 08/18/2021 Office Visit Sleep Disorders Celsa Tafoya CRNP [address] [place] [address] [address] [phone] 08/19/2021 Home Visit Family Medicine Magaly Morales, [facility] [employer] [address] [place] [address] 09/08/2021 Home Visit [facility] Vera Capellan RN [address] [place] [address] [address] [phone] 10/05/2021 Office Visit Cardiology Rey Woodall MD [address] [address] [address] [phone] 10/05/2021 Office Visit Pharmacy Danuta Ordaz [address] [address] [address] 01/21/2022 Office Visit Family Medicine Kevin Whiteside DO [address] [place] [address] [address] [phone] Health Maintenance Due Date Last Done Comments Pneumococcal Vaccine: 65+ Years (2 of 2 - PPSV23) 2020 08/22/2009, 06/15/2006 DIABETES-HGBA1C EVERY 6 MONTHS 05/17/2021 11/17/2020, 01/23/2020, 11/07/2019, Additional history exists COVID-19 Vaccine (3 - Pfizer booster) 06/30/2021 12/29/2020, 12/18/2020 CKD GFR USE SMARTSET 67781 09/19/202103/20, 03/12/2021, 12/25/2020, Additional history exists BREAST CANCER SCREENING DISCUSSION YEARLY AGES 40-75 10/01/2021 10/01/2020, 07/10/2019, 06/23/2018, Additional history exists DIABETES-FOOT EXAM 01/14/2022 01/14/2021, 0 11/07/2019, 01/01/2019, Additional history exists CKD PHOS USE SMARTSET 12887 03/12/202202/24, 11/17/2020, 12/24/2019, Additional history exists DIABETES-URINE MICROALBUMIN EVERY 12 MONTHS 03/12/2022 03/12/2021, 03/12/2021, 12/24/2019, Additional history exists CKD HGB USE SMARTSET 44023 03/20/202203/20, 03/20/2021, 03/12/2021, Additional history exists DIABETES-EYE [...] Documents on File Type Date Recorded Patient Analytical Data Miner Expl 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 Other Health Care Hayden r of Land Development Manager Princess Allen Other Health Care Pow er of Land Development Manager
--- OUTSIDE RECORDS SUMMARY | 2023-06-01 04:56 | External Medical Summary | Summary of Care ---
Author Name Unknown Organization [place] [address] Care Team Providers Care Pump Servicer Name Role Phone Stevo Kevin Gonzalez DO Primary Care Provider Encounter Details Date Type Department Care Team Description 07/28/2021 Orders Only Pharmacy, [facility] [address] [facility] [place] [address] [facility] [address] [facility] [place] [address] Allergies Active Allergy Reactions Severity Noted Date Comments Codeine 07/08/2014 hallucination Pollen 05/18/2019 Heparin 09/04/2009 Heparin Induced Thrombocytopenia Hydrocodone Neuro complications (Please comment) 07/28/2020 Empagliflozin Other (Please comment) Medium 05/17/2018 3 yeast infections in 6 weeks after starting Morphine And Related 09/16/1997 Hallucinations Tetanus Toxoid Other (Please comment) 06/15/2011 Passed out documented as of this encounter (statuses as of 07/28/2021) Medications Medication Sig Dispensed Refills Start Date [...] 0 0 Active Blood Glucose Monitoring Suppl (ElectroJetTOUCH ULTRA 2) w/Device KIT Use to test BG values 1 Kit 0 0 Active Glucose Blood (ONETOUCH ULTRA BLUE) STRP [...] 0 Active Additional Information Patient taking differently: 400 [...] hemoglobin A1c goal of 7.0%-8.0% ([facility]) Inject 60 Units under the skin daily. 45 mL 3 1 Active Meclizine HCl 12.5 MG Oral Tablet (Antivert)Indicatio ns:Vertigo Take 1 Tab by mouth 3 times a day as needed for Dizziness. 30 Tab 1 1 Active Ondansetron HCl 4 MG Oral Tablet (Zofran)Indications :Vertigo Take 1 Tab by mouth every 6 hours as needed for Nausea. 30 Tab 0 1 Active Levothyroxine Sodium 50 MCG Oral Tablet (Levoxyl)Indication s:Hyperparathyroidi sm, secondary renal ([facility]) Take 1 Tab by mouth daily. (at least 30 min prior to breakfast or other meds) 30 Tab 11 1 Active traZODone HCl 50 MG Oral Tablet (Desyrel) TAKE ONE TABLET BY MOUTH AT BEDTIME 90 Tab 1 1 Active Colchicine 0.6 MG [...] hemoglobin A1c goal of 7.0%-8.0% ([facility]) Inject 40 units with meals + [...] BREAKFAST OR OTHER MEDS 90 Tab 1 1 Active DULoxetine HCl 30 MG Oral Capsule Delayed Release Particles (Cymbalta) TAKE ONE CAPSULE BY MOUTH DAILY. take with 60mg capsule for total of 90mg 90 Cap 1 1 Active CPAP every night at [...] skin weekly 2 mL 5 1 Active Trulicity 3 MG/0.5ML Subcutaneous Solution Pen-injector (Dulaglutide)Indica tions:Type 2 diabetes mellitus with hemoglobin A1c goal of 7.0%-8.0% ([facility]) Inject 3 mg under the skin once a week. 2 mL 5 1 07/28/20 21 Discontinued documented as of this encounter (statuses as of 07/28/2021) Active Problems Problem Noted Date Hypotension 12/19/2020 [...] 10/14/2014 Overview: ICD-10 update of inactive term [place] filter in place 08/19/2014 History of pulmonary embolus (PE) 2013 Statin intolerance 07/16/2014 HTN, goal below 130/80 02/22/2014 Venous insufficiency 02/07/2013 ELISSA (obstructive sleep apnea) 09/16/2011 Overview: CPAP 11 cwp Mild, AHI 11.3 but with significant nocturnal hypoxemia Dicks Postsurgical hypothyroidism 06/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 documented as of this encounter (statuses as of 07/28/2021) Resolved Problems Problem Noted Date Resolved Date [...] as of this encounter (statuses as of 07/28/2021) Immunizations Name Administration Dates Next Due COVID-19 mRNA, LNP-s, No Pre serve, 2-Dose Series (Metricly) 12/29/2020,12/18/2020 Pneumococcal Polysaccharide PPV23 (Pneumovax) 08/22/2009,06/15/2006 Seasonal [...] Disorders Celsa Tafoya CRNP [address] [address] [address] [phone] 10/05/2021 Office Visit Cardiology Rey Woodall MD [address] [address] [address] [phone] 10/05/2021 Office Visit Pharmacy Danuta Ordaz [address] [address] [address] 01/21/2022 Office Visit Family Medicine Kevin Whiteside DO [address] [address] [address] [phone] Health Maintenance Due Date Last Done Comments Pneumococcal Vaccine: 65+ Years (2 of 2 - PPSV23) 2020 08/22/2009, 06/15/2006 DIABETES-HGBA1C EVERY 6 MONTHS 05/17/2021 11/17/2020, 01/23/2020, 11/07/2019, Additional history exists COVID-19 Vaccine (3 - Pfizer booster) 06/30/2021 12/29/2020, 12/18/2020 CKD GFR USE SMARTSET 56581 09/19/202103/20, 03/12/2021, 12/25/2020, Additional history exists BREAST CANCER SCREENING DISCUSSION YEARLY AGES 40-75 10/01/2021 10/01/2020, 07/10/2019, 06/23/2018, Additional history exists DIABETES-FOOT EXAM 01/14/2022 01/14/2021, 0 11/07/2019, 01/01/2019, Additional history exists CKD PHOS USE SMARTSET 32013 03/12/202202/24, 11/17/2020, 12/24/2019, Additional history exists DIABETES-URINE MICROALBUMIN EVERY 12 MONTHS 03/12/2022 03/12/2021, 03/12/2021, 12/24/2019, Additional history exists CKD HGB USE SMARTSET 52387 03/20/202203/20, 03/20/2021, 03/12/2021, Additional history exists DIABETES-EYE [...] Documents on File Type Date Recorded Patient Patternmaker Plaster Expl 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 Camp Other Health Care Hayden r of Ocean Clam Boat Captain Princess Staplesfany Other Health Care Pow er of Ocean Clam Boat Captain
--- OUTSIDE RECORDS SUMMARY | 2023-06-01 04:56 | External Medical Summary | Summary of Care ---
Author Name Unknown Organization [facility] Address [place] [address] Care Team Providers Care Clinical Haematologist Name Role Phone Kevin Whiteside DO Primary Care Provider Reason for Visit * Reason Onset Date Comments [facility]: Maintenance 07/29/2021 Encounter Details Date Type Department Care Team Description 07/29/2021 Scheduled Telephone [facility], [facility] [address] [place] [address] Coordinator, [facility] [address] [place] [address] [phone] Allergies Active Allergy Reactions Severity Noted Date [...] 0 04/08/2020 Active Blood Glucose Monitoring Suppl (Property OwlUCH ULTRA 2) w/Device KIT Use to test [...] of 7.0%-8.0% ([facility]) Inject 60 Units under the [...] MCG Oral Tablet (Levoxyl)Indications: Hyperparathyroidism, secondary renal ([facility]) Take 1 Tab by mouth daily. (at least 30 min prior to breakfast or other meds) 30 Tab 11 01/14/2021 Active traZODone HCl 50 MG Oral Tablet (Desyrel) TAKE ONE TABLET BY MOUTH AT BEDTIME 90 Tab 1 02/06/2021 Active Colchicine 0.6 MG Oral TabletIndications:Jacobo kocytoclastic vasculitis ([facility]) Take 1/2 tab daily 45 [...] Tablet (Lasix)Indications:Ch ronic diastolic congestive heart failure ([facility]) Take 0.5 Tabs by mouth [...] mRNA, LNP-s, No Pre serve, 2-Dose Series (Epunchit) 12/29/2020,12/18/2020 Pneumococcal Polysaccharide PPV23 (Pneumovax) 08/22/2009,06/15/2006 Seasonal [...] number . Routed to care team as . documented in this encounter Plan of Treatment Upcoming Encounters Date Type Specialty Care Team Description 08/18/2021 Office Visit Sleep Disorders [facility] [address] [facility] [address] [phone] 08/19/2021 Home Visit Family Medicine Magaly Morales, [facility] [employer] [address] [place] [address] 09/08/2021 Home Visit [facility] Vera Capellan RN [address] [place] [address] [address] [phone] 10/05/2021 Office Visit Cardiology Rey Woodall MD [address] [address] [address] [phone] 10/05/2021 Office Visit Pharmacy Ordaz, [facility] [address] [place] [address] [address] 01/21/2022 Office Visit Family Medicine Kevin Whiteside DO [address] [address] [phone] Health Maintenance Due Date Last Done Comments Pneumococcal Vaccine: 65+ Years (2 of 2 - PPSV23) 2020 08/22/2009, 06/15/2006 DIABETES-HGBA1C EVERY 6 MONTHS 05/17/2021 11/17/2020, 01/23/2020, 11/07/2019, Additional history exists COVID-19 Vaccine (3 - Pfizer booster) 06/30/2021 12/29/2020, 12/18/2020 CKD GFR USE SMARTSET 09567 09/19/202103/20, 03/12/2021, 12/25/2020, Additional history exists BREAST CANCER SCREENING DISCUSSION YEARLY AGES 40-75 10/01/2021 10/01/2020, 07/10/2019, 06/23/2018, Additional history exists DIABETES-FOOT EXAM 01/14/2022 01/14/2021, 0 11/07/2019, 01/01/2019, Additional history exists CKD PHOS USE SMARTSET 32746 03/12/202202/24, 11/17/2020, 12/24/2019, Additional history exists DIABETES-URINE MICROALBUMIN EVERY 12 MONTHS 03/12/2022 03/12/2021, 03/12/2021, 12/24/2019, Additional history exists CKD HGB USE SMARTSET 05486 03/20/202203/20, 03/20/2021, 03/12/2021, Additional history exists DIABETES-EYE [...] Documents on File Type Date Recorded Patient Boiling Off Winder Expl 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 Camp Other Health Care Hayden r of Mucker Operator Princess Allen Other Health Care Pow er of Mucker Operator
--- OUTSIDE RECORDS SUMMARY | 2023-06-01 04:56 | External Medical Summary | Summary of Care ---
Author Name Unknown Organization [facility] Address [place] [address] Care Team Providers Care Metal Cleaner Name Role Phone Kevin Whiteside DO Primary Care Provider Reason for Visit * Reason Onset Date Comments [facility]: Maintenance 07/30/2021 Encounter Details Date Type Department Care Team Description 07/30/2021 Scheduled Telephone [facility], [facility] [address] [place] [address] Coordinator, [facility] [address] [place] [address] [phone] Allergies Active Allergy Reactions Severity Noted Date Comments Codeine 07/08/2014 hallucination Pollen 05/18/2019 Heparin 09/04/2009 Heparin Induced Thrombocytopenia Hydrocodone Neuro complications (Please comment) 07/28/2020 Empagliflozin Other (Please comment) Medium 05/17/2018 3 yeast infections in 6 weeks after starting Morphine And Related 09/16/1997 Hallucinations Tetanus Toxoid Other (Please comment) 06/15/2011 Passed out documented as of this encounter (statuses as of 07/30/2021) Medications Medication Sig Dispensed Refills Start Date [...] 0 04/08/2020 Active Blood Glucose Monitoring Suppl (FoodynUCH ULTRA 2) w/Device KIT Use to test [...] MCG Oral Tablet (Levoxyl)Indications: Hyperparathyroidism, 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 (at least 30 min prior to breakfast or other meds) 30 Tab 11 01/14/2021 Active traZODone HCl 50 MG Oral Tablet (Desyrel) TAKE ONE TABLET BY MOUTH AT BEDTIME 90 Tab 1 02/06/2021 Active Colchicine 0.6 MG Oral TabletIndications:Jacobo kocytoclastic vasculitis ([facility]) Take 1/2 tab daily 45 Tab 1 [...] Tablet (Lasix)Indications:Ch ronic diastolic congestive heart failure ([facility]) Take 0.5 Tabs by mouth 2 times [...] as of this encounter (statuses as of 07/30/2021) Active Problems Problem Noted Date Hypotension 12/19/2020 [...] as of this encounter (statuses as of 07/30/2021) Resolved Problems Problem Noted Date Resolved Date [...] as of this encounter (statuses as of 07/30/2021) Immunizations Name Administration Dates Next Due COVID-19 mRNA, LNP-s, No Pre serve, 2-Dose Series (SqueezeCMM) 12/29/2020,12/18/2020 Pneumococcal Polysaccharide PPV23 (Pneumovax) 08/22/2009,06/15/2006 Seasonal [...] Telephone Encounter - Lucia Garcia CRNP - 07/30/2021 1:27 PM EDT It sounds like she is better except for some sciatic pain? She was informed to call us if persists or worsens. Thanks for the update. * Telephone Encounter - Lisandra Thomas LPN - 07/30/2021 10:38 AM EDT Follow up call regarding BLE edema, abdominal pain, and constipation/diarrhea. Spoke with Stephanie. She is feeling a little better today. Sciatica is flared up today, which she rates 10/10. She has not taken anything for pain due to bowel issues. She uses Tylenol as needed but none today. She states "I may take tramadol after a while and go back to bed". She laughed during the conversation. She has had a "odd taste in her mouth for the past week". Denies white patches on tongue or in her mouth. Abdominal pain is 3/10 on pain scale. She has not eaten yet today, just woke up a little while ago. Feels mild nausea from vertigo. Has not taken Zofran but plans to soon. Drinking water and tea, but things taste bad. She had loose bowel movement (not diarrhea) last night. She is taking stool softener twice daily. Denies fever or chills. Weight: 339 today. BLE edema has resolved, back to baseline. Will call for any changes/worsening of symptoms. Provided call back number . Routed to care team. Please advise. documented in this encounter Plan of Treatment Upcoming Encounters Date Type Specialty Care Team Description 08/18/2021 Office Visit Sleep Disorders Celsa Tafoya CRNP [address] [address] [address] [phone] 08/19/2021 Home Visit Family Medicine Magaly Morales, [facility] Evaluation Specialist [address] [place] [address] 09/08/2021 Home Visit [facility] Vera Capellan RN [address] [address] [address] [phone] 10/05/2021 Office Visit Cardiology Rey Woodall MD [address] [address] [phone] 10/05/2021 Office Visit Pharmacy Danuta Ordaz [address] [address] 01/21/2022 Office Visit Family Medicine Kevin Whiteside DO [address] [address] [address] [phone] Health Maintenance Due Date Last Done Comments Pneumococcal Vaccine: 65+ Years (2 of 2 - PPSV23) 2020 08/22/2009, 06/15/2006 DIABETES-HGBA1C EVERY 6 MONTHS 05/17/2021 11/17/2020, 01/23/2020, 11/07/2019, Additional history exists COVID-19 Vaccine (3 - Pfizer booster) 06/30/2021 12/29/2020, 12/18/2020 CKD GFR USE SMARTSET 92229 09/19/202103/20, 03/12/2021, 12/25/2020, Additional history exists BREAST CANCER SCREENING DISCUSSION YEARLY AGES 40-75 10/01/2021 10/01/2020, 07/10/2019, 06/23/2018, Additional history exists DIABETES-FOOT EXAM 01/14/2022 01/14/2021, 0 11/07/2019, 01/01/2019, Additional history exists CKD PHOS USE SMARTSET 10957 03/12/202202/24, 11/17/2020, 12/24/2019, Additional history exists DIABETES-URINE MICROALBUMIN EVERY 12 MONTHS 03/12/2022 03/12/2021, 03/12/2021, 12/24/2019, Additional history exists CKD HGB USE SMARTSET 98861 03/20/202203/20, 03/20/2021, 03/12/2021, Additional history exists DIABETES-EYE [...] Documents on File Type Date Recorded Patient Talent Manager Expl 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 Camp Other Health Care Hayden r of Dictating Machine Typist Princess Allen Other Health Care Pow er of Dictating Machine Typist
--- OUTSIDE RECORDS SUMMARY | 2023-06-01 04:56 | External Medical Summary | Summary of Care ---
Author Name Unknown Organization [place] [address] Care Team Providers Care Clother In Name Role Phone Kevin Whiteside DO Primary Care Provider Reason for Visit * Reason Comments [facility]: Maintenance Encounter Details Date Type Department Care Team Description 07/28/2021 [facility] Visit [facility], [facility] 132 [facility] [place] [address] Vera Capellan RN 132 [facility] [place] [address] [phone] Benign hypertensive heart and kidney disease with [...] 0 04/08/2020 Active Blood Glucose Monitoring Suppl (SaludFÁCILUCH ULTRA 2) w/Device KIT Use to test [...] 7.0%-8.0% ([facility]) Inject 60 Units under the [...] MCG Oral Tablet (Levoxyl)Indications: Hyperparathyroidism, secondary renal ([facility]) Take 1 Tab by mouth daily. [...] TWICE DAILY 60 Tab 0 07/27/2021 Active documented as of this encounter (statuses [...] 10/14/2014 Overview: ICD-10 update of inactive term [place] filter in place 08/19/2014 History of pulmonary [...] mRNA, LNP-s, No Pre serve, 2-Dose Series ([employer] 12/29/2020,12/18/2020 Pneumococcal Polysaccharide PPV23 (Pneumovax) 08/22/2009,06/15/2006 [...] Sign Reading Time Taken Comments Blood Pressure 112/70 07/28/2021 10:04 AM EDT Pulse 78 07/28/2021 10:04 AM EDT Temperature 36.8 C (98.2 F) 07/28/2021 10:04 AM E DT Respiratory Rate 20 07/28/2021 10:04 AM EDT Oxygen Saturation - - Inhaled Oxygen Concentration - - Weight 158.8 kg (350 lb) 07/28/2021 10:04 AM EDT Height - - Body Mass Index 60.08 12/29/2020 9:29 AM EDT documented in this encounter Progress Notes * Vera Capellan RN - 07/28/2021 7:48 AM EDT [facility] Referral Clerk Visit Date: 07/28/2021 Time: 9:48 AM Name: Stephanie Camp : 1955 Current Concerns: Pt seen for return RNCM visit Continues to do out patient PT at [facility] Continues to follow with MTM for DM Blood sugars have been ranging in the 200's at the most Blood sugar was 139 this am Trulicity was increased at last MTM appt last week but pt did not start that yet - [facility] to send script to pharmacy today Next appt is in 12 weeks Pt reports she has been having increased pain of lower back and lower abdominal area She did have a fall two weeks ago but didn't think she injured anything then She has also been having constipation with taking Magnesium - did start using Miralax with results but continues to have abdominal pain She also feels she is more SOB than normal Generally not feeling well for past few days Increased SOB and abdominal bloating Also has +1 edema of BLE - states they are better today but were worse yesterday Wt today is up to 350 lbs - was 341 lbs two weeks ago Dry wt is 332 lbs Discussed with [facility] [place] [place] - recommendations as listed below in tx plan Physical Exam: BP 112/70 | Pulse 78 | Temp 36.8 C (98.2 F) | Resp 20 | Wt (!) 158.8 kg (350 lb) | LMP 03/11/2003 | BMI 60.08 kg/m | BSA 2.68 m Pain 8 Physical Exam Constitutional: Appearance: She is obese. Cardiovascular: Rate and Rhythm: Normal rate and regular rhythm. Pulses: Normal pulses. Heart sounds: Normal heart sounds. Pulmonary: Effort: Pulmonary effort is normal. Breath sounds: Normal breath sounds. Abdominal: General: Bowel sounds are normal. There is distension. Palpations: Abdomen is soft. Tenderness: There is abdominal tenderness (RLQ/groin). Musculoskeletal: Right lower leg: Edema (+1) present. Left lower leg: Edema (+1) present. Skin: General: Skin is warm and dry. Coloration: Skin is pale. Neurological: Mental Status: She is alert and oriented to person, place, and time. Problems/Symptoms: Review of Systems Constitutional: Positive for fatigue. HENT: Positive for sinus pressure (chronic, not new). Eyes: Negative. Respiratory: Positive for shortness of breath (with min exertion). Gastrointestinal: Positive for abdominal pain (lower) and constipation. Genitourinary: Negative. Skin: Negative. Neurological: Positive for dizziness (with position change). Psychiatric/Behavioral: Positive for dysphoric mood. Medication Reconciliation: (See medication list) Does patient take medications as ordered: Yes Patient Well Being: PHQ2/9: No questionnaires available. No change in living situation. Had fall 2 weeks ago as noted above Advanced Care Planning: POLST. Patient's Goals of [...] for fluid overload-take only as advised DRY Lw=[id number] as of 03/24/21 - does not weight self daily Per [facility] recommendations: Liquid diet for next few days May increase stool softener/Miralax to keep bowels moving Metolazone 2.5mg x1 dose today F/U with pain clinic for injection for back pain [facility] f/u call tomorrow Home Interventions Provided: Home Intervention: Other; Evaluation Consulted PCP/Specialist Reinforced current Plan of Care, including self-management and medication regimen Patient's 'Red Flags': 1. Worsening SOB 2. Increased edema/abd bloating 3. Fall w/ injury Patient Needs to Remember: Call [facility] at with any new or worsening health concerns or problems, red flag symptoms. Referrals Needed: Other none Follow Up: Patient encouraged to call the intake phone number for all urgent but not emergent issues. Is the patient new to [facility] at Home within the last 30 days? No, Assess appropriateness for upcoming telehealth visits. Cancel telehealth visits & schedule home visit with care steam shovelman(s)as indicated. Provider is in agreement with Plan of Care: Yes Scheduled to follow up with patient in 24 hrs . Vera Capellan RN 07/28/2021 9:48 AM documented in this encounter Plan of Treatment Upcoming Encounters Date Type Specialty Care Team Description 07/29/2021 Scheduled Telephone [facility] at Sander Operator, [facility] [address] [place] [address] [phone] 08/18/2021 Office Visit Sleep Disorders Celsa Tafoya CRNP [address] [place] [address] [phone] 08/19/2021 Home Visit Family Medicine Magaly Morales, Community Health Circular Knitter [address] [place] [address] [phone] 09/08/2021 [facility] Visit [facility] Vera Capellan, RN [address] [place] [address] [phone] 10/05/2021 Office Visit Cardiology Rey Woodall MD [address] [place] [address] [phone] 10/05/2021 Office Visit Pharmacy [facility] [address] [place] [address] 01/21/2022 Office Visit Family Medicine Kevin Whiteside DO [address] [place] [address] [phone] Health Maintenance Due Date Last Done Comments Pneumococcal Vaccine: 65+ Years (2 of 2 - PPSV23) 2020 08/22/2009, 06/15/2006 DIABETES-HGBA1C EVERY 6 MONTHS 05/17/2021 11/17/2020, 01/23/2020, 11/07/2019, Additional history exists COVID-19 Vaccine (3 - Pfizer booster) 06/30/2021 12/29/2020, 12/18/2020 CKD GFR USE SMARTSET 93841 09/19/202103/20, 03/12/2021, 12/25/2020, Additional history exists BREAST CANCER SCREENING DISCUSSION YEARLY AGES 40-75 10/01/2021 10/01/2020, 07/10/2019, 06/23/2018, Additional history exists DIABETES-FOOT EXAM 01/14/2022 01/14/2021, 0 11/07/2019, 01/01/2019, Additional history exists CKD PHOS USE SMARTSET 19154 03/12/202202/24, 11/17/2020, 12/24/2019, Additional history exists DIABETES-URINE MICROALBUMIN EVERY 12 MONTHS 03/12/2022 03/12/2021, 03/12/2021, 12/24/2019, Additional history exists CKD HGB USE SMARTSET 51039 03/20/202203/20, 03/20/2021, 03/12/2021, Additional history exists DIABETES-EYE [...] Recorded Patient Wood Machinist Apprentice Expl 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 Camp Other Health Care Hayden r of Compliance Mgr [phone] ([place]) Princess Allen Other Health Care Pow er of Compliance Mgr "
--- OUTSIDE RECORDS SUMMARY | 2023-06-01 04:56 | External Medical Summary | Summary of Care ---
Author Name Unknown Organization [facility] Address [place] [address] Care Team Providers Care Physician Assistant Psychiatry Name Role Phone Kevin Whiteside DO Primary Care Provider Reason for Visit * Reason Onset Date Comments [facility]: Maintenance 07/30/2021 Encounter Details Date Type Department Care Team Description 07/30/2021 Scheduled Telephone [facility], [facility] [address] [place] [address] Coordinator, [facility] [address] [place] [address] [phone] Allergies Active Allergy Reactions Severity Noted Date [...] 0 04/08/2020 Active Blood Glucose Monitoring Suppl (Applied Cell TechnologyUCH ULTRA 2) w/Device KIT Use to test [...] 7.0%-8.0% ([facility]) Inject 60 Units under the skin [...] Tablet (Levoxyl)Indications: Hyperparathyroidism, secondary renal ([facility]) Take 1 Tab by mouth daily. (at least 30 min prior to breakfast or other meds) 30 Tab 11 01/14/2021 Active traZODone HCl 50 MG Oral Tablet (Desyrel) TAKE ONE TABLET BY MOUTH AT BEDTIME 90 Tab 1 02/06/2021 Active Colchicine 0.6 MG Oral TabletIndications:Jacobo kocytoclastic vasculitis ([facility]) Take 1/2 tab daily 45 Tab 1 [...] Tablet (Lasix)Indications:Ch ronic diastolic congestive heart failure ([facility]) Take 0.5 Tabs by mouth 2 [...] mRNA, LNP-s, No Pre serve, 2-Dose Series ([employer]) 12/29/2020,12/18/2020 Pneumococcal Polysaccharide PPV23 (Pneumovax) 08/22/2009,06/15/2006 Seasonal [...] Visit Sleep Disorders [facility]els[facility] [address] [phone] 08/19/2021 Home Visit Family Medicine Magaly Morales, Community Health Animal Services Officer [address] [place] [address] [phone] 09/08/2021 [facility] Visit [facility] Vera Capellan RN [address] [place] [address] [phone] 10/05/2021 Office Visit Cardiology Rey Woodall MD [address] [place] [address] [phone] 10/05/2021 Office Visit Pharmacy [facility] [place] [address] [place] [address] 01/21/2022 Office Visit Family Medicine Kevin Whiteside DO [address] [place] [address] [phone] Health Maintenance Due Date Last Done Comments Pneumococcal Vaccine: 65+ Years (2 of 2 - PPSV23) 2020 08/22/2009, 06/15/2006 DIABETES-HGBA1C EVERY 6 MONTHS 05/17/2021 11/17/2020, 01/23/2020, 11/07/2019, Additional history exists COVID-19 Vaccine (3 - Pfizer booster) 06/30/2021 12/29/2020, 12/18/2020 CKD GFR USE SMARTSET 64077 09/19/202103/20, 03/12/2021, 12/25/2020, Additional history exists BREAST CANCER SCREENING DISCUSSION YEARLY AGES 40-75 10/01/2021 10/01/2020, 07/10/2019, 06/23/2018, Additional history exists DIABETES-FOOT EXAM 01/14/2022 01/14/2021, 0 11/07/2019, 01/01/2019, Additional history exists CKD PHOS USE SMARTSET 69730 03/12/202202/24, 11/17/2020, 12/24/2019, Additional history exists DIABETES-URINE MICROALBUMIN EVERY 12 MONTHS 03/12/2022 03/12/2021, 03/12/2021, 12/24/2019, Additional history exists CKD HGB USE SMARTSET 32952 03/20/202203/20, 03/20/2021, 03/12/2021, Additional history exists DIABETES-EYE [...] Documents on File Type Date Recorded Patient Eyeletter Expl 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 Camp Other Health Care Hayden r of Recreational Therapy Aide Princess Allen Other Health Care Pow er of Recreational Therapy Aide
--- OUTSIDE RECORDS SUMMARY | 2023-06-01 04:56 | External Medical Summary | Summary of Care ---
Author Name Unknown Organization [facility] Address [place] [address] Care Team Providers Care Sports Reporter Name Role Phone Kevin Whiteside DO Primary Care Provider Reason for Visit * Reason Onset Date Comments [facility]: Maintenance 07/29/2021 Encounter Details Date Type Department Care Team Description 07/29/2021 Scheduled Telephone [facility], [facility] [address] [place] [address] Coordinator, [facility] [address] [place] [address] [phone] Allergies Active Allergy Reactions Severity Noted Date [...] 0 04/08/2020 Active Blood Glucose Monitoring Suppl (Gemino Healthcare FinanceUCH ULTRA 2) w/Device KIT Use to [...] 7.0%-8.0% ([facility]) Inject 60 Units under the skin [...] MCG Oral Tablet (Levoxyl)Indications: Hyperparathyroidism, secondary renal ([facility]) Take 1 Tab by mouth daily. (at least 30 min prior to breakfast or other meds) 30 Tab 11 01/14/2021 Active traZODone HCl 50 MG Oral Tablet (Desyrel) TAKE ONE TABLET BY MOUTH AT BEDTIME 90 Tab 1 02/06/2021 Active Colchicine 0.6 MG Oral TabletIndications:Jacobo kocytoclastic vasculitis ([facility]) Take 1/2 tab daily 45 Tab [...] 7.0%-8.0% ([facility]) Inject 40 units with meals + sliding scale 1 units for every 25 units BG > 150. 121 mL 3 03/20/2021 Active Furosemide 40 MG Oral Tablet (Lasix)Indications:Ch ronic diastolic congestive heart failure ([facility]) Take 0.5 Tabs by mouth 2 [...] mRNA, LNP-s, No Pre serve, 2-Dose Series ([employer]) 12/29/2020,12/18/2020 Pneumococcal Polysaccharide PPV23 (Pneumovax) 08/22/2009,06/15/2006 Seasonal [...] Encounter - Lisandra Thomas LPN - 07/29/2021 3:41 PM EDT Stephanie returned my call. Denies fevers. Temp: 97.6 Abdominal pain improving as the day goes on, currently 4/10 on pain scale. She denies pain increasing if she presses on abdominal wall. Informed if pain becomes severe to go to ED per TATIANA Chamberlain. Phone call added for tomorrow. * Telephone Encounter - Lisandra Thomas LPN - 07/29/2021 3:20 PM EDT No answer. Left message requesting return call. Provided call back number , option 3. Follow up call scheduled for tomorrow. Has patient been febrile? Needs to be informed to go to the ED for worsening/severe abdominal pain. * Telephone Encounter - Lucia Garcia CRNP [...] number . Routed to care team as LINDA. documented in this encounter Plan of Treatment Upcoming Encounters Date Type Specialty Care Team Description 07/30/2021 Scheduled Telephone [facility] Non Ferrous Material Handler, [place] [facility] [address] [place] [address] [phone] 08/18/2021 Office Visit Sleep Disorders Celsa Tafoya CRNP [address] [place] [address] [phone] 08/19/2021 Home Visit Family Medicine Magaly Morales, Community Health Welding Instructor [address] [place] [address] 09/08/2021 Home Visit [facility] Vera Capellan RN [address] [place] [address] [phone] 10/05/2021 Office Visit Cardiology Rey Woodall MD [address] [place] [address] [phone] 10/05/2021 Office Visit Pharmacy [facility] [place] [address] [place] [address] 01/21/2022 Office Visit Family Medicine Kevin Whiteside DO [address] [place] [address] [phone] Health Maintenance Due Date Last Done Comments Pneumococcal Vaccine: 65+ Years (2 of 2 - PPSV23) 2020 08/22/2009, 06/15/2006 DIABETES-HGBA1C EVERY 6 MONTHS 05/17/2021 11/17/2020, 01/23/2020, 11/07/2019, Additional history exists COVID-19 Vaccine (3 - Pfizer booster) 06/30/2021 12/29/2020, 12/18/2020 CKD GFR USE SMARTSET 91138 09/19/202103/20, 03/12/2021, 12/25/2020, Additional history exists BREAST CANCER SCREENING DISCUSSION YEARLY AGES 40-75 10/01/2021 10/01/2020, 07/10/2019, 06/23/2018, Additional history exists DIABETES-FOOT EXAM 01/14/2022 01/14/2021, 0 11/07/2019, 01/01/2019, Additional history exists CKD PHOS USE SMARTSET 78496 03/12/202202/24, 11/17/2020, 12/24/2019, Additional history exists DIABETES-URINE MICROALBUMIN EVERY 12 MONTHS 03/12/2022 03/12/2021, 03/12/2021, 12/24/2019, Additional history exists CKD HGB USE SMARTSET 89356 03/20/202203/20, 03/20/2021, 03/12/2021, Additional history exists DIABETES-EYE [...] Documents on File Type Date Recorded Patient Commodity Management Specialist Expl 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 [place] Other Health Care Hayden r of Central Office Worker Princess Allen Other Health Care Pow er of Central Office Worker
--- OUTSIDE RECORDS SUMMARY | 2023-06-01 04:56 | External Medical Summary | Summary of Care ---
Author Name Unknown Organization [facility] Address [place] [address] Care Team Providers Care Distribution Transformer Assembler Name Role Phone Kevin Whiteside DO Primary Care Provider Reason for Visit * Reason Onset Date Comments [facility]: Maintenance 07/29/2021 Encounter Details Date Type Department Care Team Description 07/29/2021 Scheduled Telephone [facility], [facility] [address] [place] [address] Coordinator, [facility] [address] [place] [address] [phone] Allergies Active Allergy Reactions Severity Noted Date [...] 0 04/08/2020 Active Blood Glucose Monitoring Suppl (Evolv TechnologiesUCH ULTRA 2) w/Device KIT Use to [...] goal of 7.0%-8.0% ([facility]) Inject 60 Units under the skin [...] MCG Oral Tablet (Levoxyl)Indications: Hyperparathyroidism, secondary renal ([facility]) Take 1 Tab by mouth daily. (at least 30 min prior to breakfast or other meds) 30 Tab 11 01/14/2021 Active traZODone HCl 50 MG Oral Tablet (Desyrel) TAKE ONE TABLET BY MOUTH AT BEDTIME 90 Tab 1 02/06/2021 Active Colchicine 0.6 MG Oral TabletIndications:Jacobo kocytoclastic vasculitis ([facility]) Take 1/2 tab daily 45 Tab [...] goal of 7.0%-8.0% ([facility]) Inject 40 units with meals + sliding scale 1 units for every 25 units BG > 150. 121 mL 3 03/20/2021 Active Furosemide 40 MG Oral Tablet (Lasix)Indications:Ch ronic diastolic congestive heart failure ([facility]) Take 0.5 Tabs by mouth 2 [...] mRNA, LNP-s, No Pre serve, 2-Dose Series ([employer]) 12/29/2020,12/18/2020 Pneumococcal Polysaccharide PPV23 (Pneumovax) 08/22/2009,06/15/2006 Seasonal [...] up again tomorrow. Concerned with abd pain 8/10--could be from reported diarrhea the night before? [...] Team Description 07/30/2021 Scheduled Telephone [facility] Ac/Dc Rewinder, [place] [facility] [address] [place] [address] [phone] 08/18/2021 Office Visit Sleep Disorders Celsa Tafoya CRNP [address] [place] [address] [phone] 08/19/2021 Home Visit Family Medicine Magaly Morales, Community Health Surgical Resident [address] [place] [address] [phone] 09/08/2021 Home Visit [facility] Vera Capellan RN [address] [place] [address] [phone] 10/05/2021 Office Visit Cardiology Rey Woodall MD [address] [place] [address] [phone] 10/05/2021 Office Visit Pharmacy [place] [place] [address] [place] [address] 01/21/2022 Office Visit Family Medicine Kevin Whiteside DO [address] [place] [address] [phone] Health Maintenance Due Date Last Done Comments Pneumococcal Vaccine: 65+ Years (2 of 2 - PPSV23) 2020 08/22/2009, 06/15/2006 DIABETES-HGBA1C EVERY 6 MONTHS 05/17/2021 11/17/2020, 01/23/2020, 11/07/2019, Additional history exists COVID-19 Vaccine (3 - Pfizer booster) 06/30/2021 12/29/2020, 12/18/2020 CKD GFR USE SMARTSET 33394 09/19/202103/20, 03/12/2021, 12/25/2020, Additional history exists BREAST CANCER SCREENING DISCUSSION YEARLY AGES 40-75 10/01/2021 10/01/2020, 07/10/2019, 06/23/2018, Additional history exists DIABETES-FOOT EXAM 01/14/2022 01/14/2021, 0 11/07/2019, 01/01/2019, Additional history exists CKD PHOS USE SMARTSET 18934 03/12/202202/24, 11/17/2020, 12/24/2019, Additional history exists DIABETES-URINE MICROALBUMIN EVERY 12 MONTHS 03/12/2022 03/12/2021, 03/12/2021, 12/24/2019, Additional history exists CKD HGB USE SMARTSET 86115 03/20/202203/20, 03/20/2021, 03/12/2021, Additional history exists DIABETES-EYE [...] Documents on File Type Date Recorded Patient Dry Color Mixer Expl 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 Camp Other Health Care Hayden r of Cartoonist Special Effects Princess Allen Other Health Care Pow er of Cartoonist Special Effects
--- OUTSIDE RECORDS SUMMARY | 2023-06-01 04:56 | External Medical Summary | Summary of Care ---
Author Name Unknown Organization [facility] Address [place] [address] Care Team Providers Care Supervisor Detasseling Crew Name Role Phone Kevin Whiteside DO Primary Care Provider Reason for Visit * Reason Onset Date Comments [facility]: Maintenance 07/29/2021 Encounter Details Date Type Department Care Team Description 07/29/2021 Scheduled Telephone [facility], [facility] [address] [place] [address] Coordinator, [facility] [address] [employer] [place] [address] [phone] Allergies Active Allergy Reactions Severity Noted Date [...] 0 04/08/2020 Active Blood Glucose Monitoring Suppl (Likewise SoftwareUCH ULTRA 2) w/Device KIT Use to test [...] 7.0%-8.0% ([facility]) Inject 60 Units under the [...] Tablet (Levoxyl)Indications: Hyperparathyroidism, secondary renal ([facility]) Take 1 Tab by mouth daily. (at least 30 min prior to breakfast or other meds) 30 Tab 11 01/14/2021 Active traZODone HCl 50 MG Oral Tablet (Desyrel) TAKE ONE TABLET BY MOUTH AT BEDTIME 90 Tab 1 02/06/2021 Active Colchicine 0.6 MG Oral TabletIndications:Jacobo kocytoclastic vasculitis ([facility]) Take 1/2 tab daily 45 Tab [...] ronic diastolic congestive heart failure ([facility]) Take 0.5 Tabs by mouth [...] mRNA, LNP-s, No Pre serve, 2-Dose Series ([employer]) 12/29/2020,12/18/2020 Pneumococcal Polysaccharide PPV23 (Pneumovax) 08/22/2009,06/15/2006 [...] Team Description 07/30/2021 [facility]uled Telephone [facility] Dipper Machine Operator[place] [address] [place] [address] [phone] 08/18/2021 Office Visit Sleep Disorders Celsa Tafoya CRNP [address] [place] [address] [phone] 08/19/2021 Home Visit Family Medicine Magaly Morales, Community Health Municipal Services Manager [address] [place], [place] [id number] 09/08/2021 Home Visit [facility] Vera Capellan RN [address] [place] [address] [phone] 10/05/2021 Office Visit Cardiology Rey Woodall MD [address] [place] [address] [phone] 10/05/2021 Office Visit Pharmacy [facility] [address] [place] [address] 01/21/2022 Office Visit Family Medicine Kevin Whiteside DO [address] [place] [address] [phone] Health Maintenance Due Date Last Done Comments Pneumococcal Vaccine: 65+ Years (2 of 2 - PPSV23) 2020 08/22/2009, 06/15/2006 DIABETES-HGBA1C EVERY 6 MONTHS 05/17/2021 11/17/2020, 01/23/2020, 11/07/2019, Additional history exists COVID-19 Vaccine (3 - Pfizer booster) 06/30/2021 12/29/2020, 12/18/2020 CKD GFR USE SMARTSET 57059 09/19/202103/20, 03/12/2021, 12/25/2020, Additional history exists BREAST CANCER SCREENING DISCUSSION YEARLY AGES 40-75 10/01/2021 10/01/2020, 07/10/2019, 06/23/2018, Additional history exists DIABETES-FOOT EXAM 01/14/2022 01/14/2021, 0 11/07/2019, 01/01/2019, Additional history exists CKD PHOS USE SMARTSET 62164 03/12/202202/24, 11/17/2020, 12/24/2019, Additional history exists DIABETES-URINE MICROALBUMIN EVERY 12 MONTHS 03/12/2022 03/12/2021, 03/12/2021, 12/24/2019, Additional history exists CKD HGB USE SMARTSET 55966 03/20/202203/20, 03/20/2021, 03/12/2021, Additional history exists DIABETES-EYE [...] on File Type Date Recorded Patient Community Relations Police Lieutenant Expl 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 Camp Other Health Care Hayden r of Entertainment & Media Correspondent Princess Allen Other Health Care Pow er of Entertainment & Media Correspondent
--- OUTSIDE RECORDS SUMMARY | 2023-06-01 04:57 | External Medical Summary | Summary of Care ---
Author Name Unknown Organization [facility] Address [place] [address] Care Team Providers Care Vice Chairman Name Role Phone Kevin Whiteside DO Primary Care Provider Reason for Visit * Reason Onset Date Comments [facility]: Maintenance 07/09/2021 Encounter Details Date Type Department Care Team Description 07/09/2021 Scheduled Telephone [facility], [facility] [address] [place] [address] Coordinator, [facility] [address] [place] [address] [phone] Allergies Active Allergy Reactions Severity Noted Date Comments Codeine 07/08/2014 hallucination Pollen 05/18/2019 Heparin 09/04/2009 Heparin Induced Thrombocytopenia Hydrocodone Neuro complications (Please comment) 07/28/2020 Empagliflozin Other (Please comment) Medium 05/17/2018 3 yeast infections in 6 weeks after starting Morphine And Related 09/16/1997 Hallucinations Tetanus Toxoid Other (Please comment) 06/15/2011 Passed out documented as of this encounter (statuses as of 07/09/2021) Medications Medication Sig Dispensed Refills Start Date [...] 0 04/08/2020 Active Blood Glucose Monitoring Suppl (TrotUCH ULTRA 2) w/Device KIT Use to test [...] FOR SPASM 30 Tab 0 03/02/2021 Active Trulicity 3 MG/0.5ML Subcutaneous Solution Pen-injector (Dulaglutide)Indicati ons:Type 2 diabetes mellitus with hemoglobin A1c goal of 7.0%-8.0% ([facility]) Inject 3 mg under the skin once a week. 2 mL 5 03/19/2021 Active Nerve Pain Relief Sublingual Tablet SublingualIndications [...] of 90mg 90 Cap 1 04/27/2021 Active traMADol HCl 50 MG Oral Tablet (Ultram)Indications:C hronic pain syndrome Take 1 Tab by mouth every 8 hours as needed for Pain, Severe. 90 Tab 0 04/27/2021 Active CPAP every night at bedtime. 0 Active clonazePAM 0.5 MG Oral Tablet (KlonoPIN)Indications :Anxiety state Take 1 Tab by mouth 2 times a day. 60 Tab 0 06/16/2021 Active Gabapentin 300 MG Oral Capsule (Neurontin) Take 300 mg by mouth 2 times a day. 0 Active metOLazone 2.5 MG Oral Tablet (Zaroxolyn) Take 2.5 mg by mouth daily as needed. Do not take unless instructed by provider 0 Active documented as of this encounter (statuses as of 07/09/2021) Active Problems Problem Noted Date Hypotension 12/19/2020 [...] goal below 130/80 02/22/2014 Venous insufficiency 02/07/2013 LEISSA (obstructive sleep apnea) 09/16/2011 Overview: CPAP 11 cwp Mild, AHI 11.3 but with significant nocturnal hypoxemia Dicks Postsurgical hypothyroidism 06/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 documented as of this encounter (statuses as of 07/09/2021) Resolved Problems Problem Noted Date Resolved Date [...] as of this encounter (statuses as of 07/09/2021) Immunizations Name Administration Dates Next Due COVID-19 mRNA, LNP-s, No Pre serve, 2-Dose Series (Pfizer) 12/29/2020,12/18/2020 Pneumococcal Polysaccharide PPV23 (Pneumovax) 08/22/2009,06/15/2006 Seasonal Influenza, Quadriva lent, No Preserve, 6 [...] Telephone Encounter - Lisandra Thomas LPN - 07/09/2021 10:59 AM EDT 24 hour follow up call s/p acute visit and starting DTP yesterday. No answer. Left message requesting return call. Provided call back number , option 3. documented in this encounter Plan of Treatment Upcoming Encounters Date Type Specialty Care Team Description 07/10/2021 Scheduled Telephone [facility]oucher, [place] Cisneros [address] [place] [address] [phone] 07/20/2021 Office Visit Pharmacy Danuta Ordaz [address] [place] [address] 07/20/2021 Office Visit Family Medicine Kevin Whiteside DO [address] [place] [address] [phone] 07/28/2021 Home Visit [facility] Vera Capellan RN [address] [place] [address] [phone] 08/18/2021 Office Visit Sleep Disorders Celsa Tafoya CRNP [address] [place] [address] [phone] 10/05/2021 Office Visit Cardiology Rey Woodall MD [address] [place] [address] [phone] Health Maintenance Due Date Last Done Comments Pneumococcal Vaccine: 65+ Years (2 of 2 - PPSV23) 2020 08/22/2009, 06/15/2006 DIABETES-HGBA1C EVERY 6 MONTHS 05/17/2021 11/17/2020, 01/23/2020, 11/07/2019, Additional history exists Influenza Vaccine (FLU shot) (#1) 2021 06/13/2020, 07/23/2019, 06/12/2018, Additional history exists COVID-19 Vaccine (3 - Pfizer booster) 06/30/2021 12/29/2020, 12/18/2020 CKD GFR USE SMARTSET 53480 09/19/202103/20, 03/12/2021, 12/25/2020, Additional history exists BREAST CANCER SCREENING DISCUSSION YEARLY AGES 40-75 10/01/2021 10/01/2020, 07/10/2019, 06/23/2018, Additional history exists DIABETES-FOOT EXAM 01/14/2022 01/14/2021, 0 11/07/2019, 01/01/2019, Additional history exists CKD PHOS USE SMARTSET 20577 03/12/202202/24, 11/17/2020, 12/24/2019, Additional history exists DIABETES-URINE MICROALBUMIN EVERY 12 MONTHS 03/12/2022 03/12/2021, 03/12/2021, 12/24/2019, Additional history exists CKD HGB USE SMARTSET 23012 03/20/202203/20, 03/20/2021, 03/12/2021, Additional history exists DIABETES-EYE EXAM 04/14/2022 04/14/2021, , 04/05/2019, Additional history exists *DEPRESSION SCREENING,ANNUAL FOR PTS 12 AND OVER Addressed 06/12/2018 Overridden with the intention of not completing the topic Zoster Vaccines Completed 05/08/2020, 10/27, 12/11/2015 MENINGOCOCCAL (MENACTRA/MENVEO) Aged Out No longer eligible based on patient's age to complete this topic documented as of this encounter Implants Not on filedocumented as of this encounter Advance Directives Documents on File Type Date Recorded Patient Elevator Tender Expl 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 Camp Other Health Care Hayden r of Production [employer] Princess Allen Other Health Care Pow er of Production [place]st[place]
--- OUTSIDE RECORDS SUMMARY | 2023-06-01 04:57 | External Medical Summary | Summary of Care ---
Author Name Unknown Organization [place] [address] Care Team Providers Care Cattle Care Worker Name Role Phone Kevin Whiteside DO Primary Care Provider Reason for Visit * Reason Comments [facility]: Acute increased fluid Encounter Details Date Type Department Care Team Description 07/08/2021 Home Visit [facility], [facility] [address] [facility] [place] [address] Brooke Jose, RN [address] [facility] [place] [address] [phone] Allergies Active Allergy Reactions Severity Noted Date [...] 0 04/08/2020 Active Blood Glucose Monitoring Suppl (Solar RoadwaysTOUCH ULTRA 2) w/Device KIT Use to test [...] A1c goal of 7.0%-8.0% ([facility]) Inject 60 Units under the skin [...] 1 02/06/2021 Active Colchicine 0.6 MG Oral TabletIndications:L eukocytoclastic [...] A1c goal of 7.0%-8.0% ([facility]) Inject 3 mg under the skin once a week. 2 mL 5 03/19/2021 Active Nerve Pain Relief Sublingual Tablet SublingualIndicatio [...] Oral Tablet (KlonoPIN)Indicatio ns:Anxiety state Take 1 Tab by mouth 2 times a day. 60 Tab 0 06/16/2021 Active Gabapentin 300 MG Oral Capsule (Neurontin) Take 300 mg by mouth 2 times a day. 0 Active metOLazone 2.5 MG Oral Tablet (Zaroxolyn) Take 2.5 mg by mouth daily as needed. Do not take unless instructed by provider 0 Active Gabapentin 300 MG Oral Capsule (Neurontin)Indicati ons:Type 2 diabetes mellitus with hemoglobin A1c goal of 7.0%-8.0% ([facility]) TAKE ONE CAPSULE BY MOUTH THREE TIMES DAILY 270 Cap 3 02/24/2021 1 Discontinue d(Medicatio n/Dose Changed) Gabapentin 300 MG Oral Capsule (Neurontin) Take 300 mg by mouth 3 times a day. 0 1 Discontinue d(Medicatio n/Dose Changed) documented as of this encounter (statuses [...] 10/14/2014 Overview: ICD-10 update of inactive term [place] filter in place 08/19/2014 History of pulmonary [...] mRNA, LNP-s, No Pre serve, 2-Dose Series ([employer]) 12/29/2020,12/18/2020 Pneumococcal Polysaccharide PPV23 (Pneumovax) 08/22/2009,06/15/2006 [...] Sign Reading Time Taken Comments Blood Pressure 150/60 07/08/2021 2:02 PM EDT Pulse 95 07/08/2021 2:02 PM EDT Temperature 36.4 C (97.6 F) 07/08/2021 2:02 PM ED T Respiratory Rate 20 07/08/2021 2:02 PM EDT Oxygen Saturation 97% 07/08/2021 2:02 PM EDT Inhaled Oxygen Concentration - - Weight 154.7 kg (341 lb) 07/08/2021 2:02 PM EDT Height - - Body Mass Index 58.53 12/29/2020 9:29 AM EDT documented in this encounter Progress Notes * Brooke Jose RN - 07/08/2021 9:40 AM EDT [facility] Automatic Tire TesterHand Mold Maker Visit Date: 07/08/2021 Time: 9:40 AM Name: Stephanie Camp : 1955 Current Concerns: generally not feeling well Reports wt was 344lbs yesterday Wt today was 341lbs Feeling better all around abdominal bloating has resolved, less fatigue, improved sob, decreased LE edema Took total of 60mg lasix yesterday and took 80mg lasix today, ''as Dr. Woodall told me to do'' Recently ate at [employer] - Wearing CPAP nightly bsg range 147-269 over past week 342 during visit-taking insulin during visit, ''forgot this morning'' Denies falls Wt Readings from Last 10 Encounters: 04/14/21 (!) 148.5 kg (327 lb 6 oz) 03/24/21 (!) 150.6 kg (332 lb) 03/12/21 (!) 151 kg (333 lb) 02/02/21 (!) 150.6 kg (332 lb) 01/14/21 (!) 148.5 kg (327 lb 5 oz) 01/01/21 (!) 152 kg (335 lb) 12/29/20 (!) 150.6 kg (332 lb) 12/25/20 (!) 151.2 kg (333 lb 4 oz) 11/17/20 (!) 149.7 kg (330 lb) 07/28/20 (!) 148.8 kg (328 lb) Problems/Symptoms: Review of Systems Constitutional: Negative. HENT: Negative. Eyes: Negative. Respiratory: Positive for shortness of breath (AVENDAÑO - at baseline). Cardiovascular: Positive for leg swelling. Gastrointestinal: Negative. Negative for abdominal distention. Endocrine: Negative. Genitourinary: Negative. Musculoskeletal: Positive for arthralgias and back pain. Skin: Negative. Neurological: Positive for dizziness ("sometimes"). Psychiatric/Behavioral: Negative. Physical Exam: [facility] 03/11/2003 Pain 6 Physical Exam Constitutional: Appearance: She is obese. HENT: Nose: Nose normal. Cardiovascular: Rate and Rhythm: Normal rate and regular rhythm. Pulses: Normal pulses. Heart sounds: Normal heart sounds. Pulmonary: Effort: Pulmonary effort is normal. Breath sounds: Normal breath sounds. Abdominal: General: Bowel sounds are normal. Palpations: Abdomen is soft. Musculoskeletal: Right lower leg: Edema (+2 b/l le pitting) present. Left lower leg: Edema (+2 b/l le pitting (<than R)) present. Skin: General: Skin is warm and dry. Neurological: Mental Status: She is alert and oriented to person, place, and time. Psychiatric: Mood and Affect: Mood normal. Behavior: Behavior normal. Thought Content: Thought content normal. Judgment: Judgment normal. Treatment/Plan: Will take additional dose of lasix per DTP again tomorrow Meds as ordered/reviewed Ambulate with roller walker [...] for fluid overload-take only as advised DRY [id number] as of 03/24/21 - does not weight self daily Denies fever, chills, no s/s cellulitis in LEs Home Interventions Provided: Oral Medications: Other; instructed to take DTP again tomorrow Reinforced current Plan of Care, including self-management and medication regimen Patient's 'Red Flags': 1. Worsening sob 2. Increased abdominal bloating 3. Increased edema Patient Needs to Remember: Call [facility] with red flags Referrals Needed: none Follow Up: Patient encouraged to call the intake phone number for all urgent but not emergent issues. Scheduled to follow up with patient daily x2 with calls, visits prn, next routine RNCM visit 07/28. Brooke Jose RN 07/08/2021 9:40 AM documented in this encounter Plan of Treatment Upcoming Encounters Date Type Specialty Care Team Description 07/10/2021 Scheduled Telephone [facility] Miner Assistant, [place] Cisneros [address] [place] [address] [phone] 07/20/2021 Office Visit Pharmacy Danuta Ordaz [address] [place] [address] 07/20/2021 Office Visit Family Medicine Kevin Whiteside DO [address] [place] [address] [phone] 07/28/2021 Home Visit [facility] Vera Capellan RN [address] [place] [address] [phone] 08/18/2021 Office Visit Sleep Disorders Celsa Tafoya CRNP [address] [place] [address] [phone] 10/05/2021 Office Visit Cardiology Rey Woodall MD [address] [place] [address] [phone] Health Maintenance Due Date Last Done Comments Pneumococcal Vaccine: 65+ Years (2 of 2 - PPSV23) 2020 08/22/2009, 06/15/2006 DIABETES-HGBA1C EVERY 6 MONTHS 05/17/2021 11/17/2020, 01/23/2020, 11/07/2019, Additional history exists Influenza Vaccine (FLU shot) (#1) 2021 06/13/2020, 07/23/2019, 06/12/2018, Additional history exists COVID-19 Vaccine (3 - Pfizer booster) 06/30/2021 12/29/2020, 12/18/2020 CKD GFR USE SMARTSET 82201 09/19/202103/20, 03/12/2021, 12/25/2020, Additional history exists BREAST CANCER SCREENING DISCUSSION YEARLY AGES 40-75 10/01/2021 10/01/2020, 07/10/2019, 06/23/2018, Additional history exists DIABETES-FOOT EXAM 01/14/2022 01/14/2021, 0 11/07/2019, 01/01/2019, Additional history exists CKD PHOS USE SMARTSET 82126 03/12/202202/24, 11/17/2020, 12/24/2019, Additional history exists DIABETES-URINE MICROALBUMIN EVERY 12 MONTHS 03/12/2022 03/12/2021, 03/12/2021, 12/24/2019, Additional history exists CKD HGB USE SMARTSET 33633 03/20/202203/20, 03/20/2021, 03/12/2021, Additional history exists DIABETES-EYE [...] Documents on File Type Date Recorded Patient Planning Assistant Expl 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 Camp Other Health Care Hayden r of Capacitor Tester Princess Allen Other Health Care Pow er of Capacitor Tester
--- OUTSIDE RECORDS SUMMARY | 2023-06-01 04:57 | External Medical Summary | Summary of Care ---
Author Name Unknown Organization [facility] Address [facility] [place] [address] Care Team Providers Care Stone Setter Metal Optical Frames Name Role Phone Kevin Whiteside DO Primary Care Provider Reason for Visit * Reason Comments Dosage Adjustment In Person (Anticoag Cl inic) Diabetes Follow-Up Encounter Details Date Type Department Care Team Description 07/20/2021 Office Visit Pharmacy, [facility] [address] [facility] [place] [address] [facility] [address] [facility] [place] [address] Type 2 diabetes mellitus with hemoglobin A1c goal of 7.0%-8.0% ([facility])* Allergies Active Allergy Reactions Severity Noted Date Comments Codeine 07/08/2014 hallucination Pollen 05/18/2019 Heparin 09/04/2009 Heparin Induced Thrombocytopenia Hydrocodone Neuro complications (Please comment) 07/28/2020 Empagliflozin Other (Please comment) Medium 05/17/2018 3 yeast infections in 6 weeks after starting Morphine And Related 09/16/1997 Hallucinations Tetanus Toxoid Other (Please comment) 06/15/2011 Passed out documented as of this encounter (statuses as of 07/20/2021) Medications Medication Sig Dispensed Refills Start Date [...] 0 04/08/2020 Active Blood Glucose Monitoring Suppl (UberGrapeUCH ULTRA 2) w/Device KIT Use to test [...] of 7.0%-8.0% ([facility]) Inject 3 mg under the skin [...] as of this encounter (statuses as of 07/20/2021) Active Problems Problem Noted Date Hypotension 12/19/2020 [...] 10/14/2014 Overview: ICD-10 update of inactive term [place] filter in place 08/19/2014 History of pulmonary embolus (PE) 2013 Statin intolerance 07/16/2014 HTN, goal below 130/80 02/22/2014 Venous insufficiency 02/07/2013 ELISSA (obstructive sleep apnea) 09/16/2011 Overview: CPAP 11 cwp Mild, AHI 11.3 but with significant nocturnal hypoxemia Dicks Postsurgical hypothyroidism 06/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 documented as of this encounter (statuses as of 07/20/2021) Resolved Problems Problem Noted Date Resolved Date [...] as of this encounter (statuses as of 07/20/2021) Immunizations Name Administration Dates Next Due COVID-19 mRNA, LNP-s, No Pre serve, 2-Dose Series ([employer]) 12/29/2020,12/18/2020 Pneumococcal Polysaccharide PPV23 (Pneumovax) 08/22/2009,06/15/2006 Seasonal [...] encounter Progress Notes * Rose Avila, [facility] - 07/20/2021 1:52 PM EDT Medication Therapy Disease [facility] - Diabetes Management Progress Note Stephanie Camp, identified by name and date of , is a 66 year old female being seen for diabetes management/education. Patient presents for return diabetic visit. DIABETES: Current diabetic medications: Novolog - 40 units with meals +SS 1:25 >150 Tresiba 60 units HS Increase Trulicity 3 mg weekly- Tuesday mornings Medication Injection Site: Abdomen Lifestyle: Diet: unchanged Glucose Review/SMBG: Readings obtained from patient documented BG logbook Pre am Post am Pre Lunch Post Lunch Pre pm Post pm HS 3am 185 234 242 209 261 307 163 393 321 210 384 424 183 205 167 102 154 199 249 191 193 155 207 228 285 228 272 140 108 Average 226 #DIV/0! 253 #DIV/0! 207 #DIV/0! 239 #DIV/0! Hi 393 0 384 0 307 0 424 0 Lo 167 0 102 0 [address]4444 0 272 0 201 0 229.333 0 Range 226 0 282 0 167 0 316 0 Hypoglycemia: Does your blood sugar go below 70 mg/dL? No Hyperglycemia symptoms present: none Lab Results Component Value Date/Time HEMOGLOBIN A1C - [facility] 8.3 (H) 11/17/2020 01:00 PM HEMOGLOBIN A1C - [facility] 7.3 (H) 01/23/2020 11:11 AM Lab Results Component Value Date/Time ESTIMATED GLOMERULAR FILTRATION RATE - [facility] 33.8 (L) 03/20/2021 03:37 PM ESTIMATED GLOMERULAR FILTRATION RATE - [facility] 26.0 (L) 05/06/2020 08:46 AM ESTIMATED GLOMERULAR FILTRATION RATE - [facility] 51.0 (L) 06/08/2013 09:06 AM Lab Results Component Value Date/Time CREATININE - [facility] 1.6 (H) 03/20/2021 03:37 PM CREATININE - [facility] 1.6 (H) 03/12/2021 03:05 PM CREATININE - [facility] 1.4 (H) 12/25/2020 10:10 AM CREATININE - [facility] 2.0 (H) 05/06/2020 08:46 AM CREATININE - [facility] 1.7 (H) 03/07/2020 11:48 AM CREATININE - [facility] 1.4 (H) 02/21/2020 12:30 PM CREATININE JOHNNY 50 09/04/2018 02:27 PM CREATININE, RANDOM URINE - [facility] 79 03/12/2021 03:05 PM CREATININE, RANDOM URINE - [facility] 52 12/24/2019 07:28 AM CREATININE, RANDOM URINE - [facility] 76 05/24/2019 02:59 PM CREATININE, RANDOM URINE - [facility] 67 05/01/2018 09:13 AM CREATININE-OUTSIDE LAB 1.74 (A) 03/13/2020 CREATININE-OUTSIDE LAB 2.69 (A) 11/30/2019 CREATININE-OUTSIDE LAB 2.06 (A) 02/26/2019 HYPERTENSION: Patient on ACEi/ARB: no, kdiney disease BP Readings from Last 3 Encounters: 07/08/21 150/60 07/07/21 102/72 06/16/21 100/60 Blood pressure at goal: yes HYPERLIPIDEMIA: Patient is taking moderate or high intensity statin: No Current regimen: decline Goal statin intensity: high The 10-year ASCVD risk score (Freddy JOHNS Jr., et al., 2013) is: 22.9% Values used to calculate the score: Age: 66 years Sex: Female Is Non- : No Diabetic: Yes Tobacco smoker: No Systolic Blood Pressure: 150 mmHg Is BP treated: Yes HDL Cholesterol: 36 mg/dL Total Cholesterol: 183 mg/dL Lab Results Component Value Date/Time LDL CHOLESTEROL (CALCULATED) - [facility] UNINTERPRETABLE RESULT 03/14/2019 01:54 PM LDL CHOLESTEROL (CALCULATED) - [facility] 111 08/01/2018 08:29 AM LDL CHOLESTEROL (CALCULATED) - [facility] 103 10/10/2014 02:32 PM LDL CHOLESTEROL (DIRECT MEASURE) - [facility] 126 03/14/2019 01:54 PM LDL CHOLESTEROL (DIRECT MEASURE) - [facility] NOT APPLICABLE 08/01/2018 08:29 AM LDL CHOLESTEROL (DIRECT MEASURE) - [facility] 109 07/14/2017 12:35 PM LDL CHOLESTEROL (DIRECT MEASURE) - [facility] 119 10/28/2016 01:24 PM LDL CHOLESTEROL (DIRECT MEASURE) - [facility] 124 06/24/2016 03:24 PM HEALTH MAINTENANCE REVIEW: Health Maintenance Due Topic Date Due Pneumococcal Vaccine: 65+ Years (2 of 2 - PPSV23) 2020 DIABETES-HGBA1C EVERY 6 MONTHS 05/17/2021 Influenza Vaccine (FLU shot) (1) 05/27/2021 COVID-19 Vaccine (3 - Pfizer booster) 06/30/2021 BREAST CANCER SCREENING DISCUSSION YEARLY AGES 40-75 10/01/2021 ASSESSMENT & PLAN: ICD-10-CM 1. Type 2 diabetes mellitus with hemoglobin A1c goal of 7.0%-8.0% ([facility]) E11.9 BG Readings Blood sugars controlled. BG values continue to average in the 200s. Medications Reviewed current regimen, patient is adherent to regimen. Recommending to increase trulicity at this time. Patient is agreeable to plan. Diet, Exercise, Lifestyle No significant lifestyle changes since last visit. Discussed with patient. Patient is agreeable to SMBG 1-3 time(s) daily. Patient aware to contact clinic if any hypoglycemia before next visit. MEDICATION CHANGES: yes, see below; preferred pharmacy: [facility] Medications: Novolog - 40 units with meals +SS 1:25 >150 Tresiba 60 units HS Increase Trulicity 4.5 mg weekly- Tuesday mornings HEALTH MAINTENANCE INTERVENTIONS: Labs: with next pcp visit Immunizations: will have today with pcp Foot Exam: Up to Date Eye Exam: Up to Date Annual Wellness Visit: N/A FOLLOW UP: Return to clinic in 12 weeks Next Office Visit: 10/05/2021 Scheduled Provider(s): [facility] Jeramie Avila RPh Clinical Pharmacist - Fulfillment Specialist Medication Therapy Management Clinic 07/20/2021, 1:52 PM documented in this encounter Plan of Treatment Upcoming Encounters Date Type Specialty Care Team Description 07/28/2021 Home Visit [facility] Vera Capellan, RN [address] [place] [address] [phone] 08/18/2021 Office Visit Sleep Disorders Celsa Tafoya CRNP [address] [place] [address] [phone] 10/05/2021 Office Visit Cardiology Rey Woodall MD [address] [place] [address] [phone] 10/05/2021 Office Visit Pharmacy [facility] Jeramie [address] [place] [address] 01/21/2022 Office Visit Family Medicine Kevin Whiteside DO [address] [place] [address] [phone] Health Maintenance Due Date Last Done Comments Pneumococcal Vaccine: 65+ Years (2 of 2 - PPSV23) 2020 08/22/2009, 06/15/2006 DIABETES-HGBA1C EVERY 6 MONTHS 05/17/2021 11/17/2020, 01/23/2020, 11/07/2019, Additional history exists COVID-19 Vaccine (3 - Pfizer booster) 06/30/2021 12/29/2020, 12/18/2020 CKD GFR USE SMARTSET 14691 09/19/202103/20, 03/12/2021, 12/25/2020, Additional history exists BREAST CANCER SCREENING DISCUSSION YEARLY AGES 40-75 10/01/2021 10/01/2020, 07/10/2019, 06/23/2018, Additional history exists DIABETES-FOOT EXAM 01/14/2022 01/14/2021, 0 11/07/2019, 01/01/2019, Additional history exists CKD PHOS USE SMARTSET 43756 03/12/202202/24, 11/17/2020, 12/24/2019, Additional history exists DIABETES-URINE MICROALBUMIN EVERY 12 MONTHS 03/12/2022 03/12/2021, 03/12/2021, 12/24/2019, Additional history exists CKD HGB USE SMARTSET 13083 03/20/202203/20, 03/20/2021, 03/12/2021, Additional history exists DIABETES-EYE [...] Documents on File Type Date Recorded Patient Dam Worker Expl 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 [place] Other Health Care Hayden r of Store Planner Princess Allen Other Health Care Pow er of Store Planner
--- OUTSIDE RECORDS SUMMARY | 2023-06-01 04:57 | External Medical Summary | Summary of Care ---
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 Production Machinist Name Role Phone Kevin Whiteside DO Primary Care Provider Reason for Referral * Evaluate & Treat - Unlimited Visits (Within 10 days (routine)) Status Reason Specialty Diagnoses / Procedures Referred By Contact Referred To Contact Authorized Specialty Services Required Ophthalmology Diagnoses Cataract of both eyes, unspecified cataract type Kevin Whiteside DO [address] [place] [address] Question Answer Referral Priority Within 10 days (routine) Comments [facility] Electronically signed by Kevin Whiteside DO at * Evaluate & Treat - Unlimited Visits (Within 10 days (routine)) Status Reason Specialty Diagnoses / Procedures Referred By Contact Referred To Contact Authorized Specialty Services Required Dermatology Diagnoses Neoplasm of uncertain behavior of skin Kevin Whiteside DO [address] [place] [address] Question Answer Referral Priority Within 10 days (routine) Are you referring the patient for Mohs Surgery and have a current positive skin cancer biopsy result? No What is the reason for the patient referral? Other Electronically signed by Kevin Whiteside DO at Reason for Visit * Reason Onset Date Comments Follow Up pt states she fe ll last week, states her L knee gave out. pt states she was able to get herself off the floor. pt states she has a bruise but no other injurries Medication Administration 07/20/2021 Flu an d/or Pneumo Inj Encounter Details Date Type Department Care Team Description 07/20/2021 Office Visit Family Practice [facility] [address] [place] [address] Kevin Whiteside DO [address] [place] [address] [phone] Need for prophylactic vaccination and inoculation against influenza*; Chronic pain syndrome; Type 2 diabetes mellitus with hemoglobin A1c goal of 7.0%-8.0% (HCC); Controlled substance agreement signed; Hyperparathyroidism, secondary renal (HCC); Dyslipidemia; Vasculitis ([facility]); HTN, goal below 130/80; Chronic diastolic congestive heart failure ([facility]); 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 90 Tab 0 07/20/2021 Active traMADol HCl 50 MG Oral Tablet (Ultram)Indications :Chronic pain syndrome Take 1 Tab by mouth every 8 hours as needed for Pain, Severe. 90 Tab 0 04/27/2021 Discontinue d(Refill) documented as of this encounter [...] 10/14/2014 Overview: ICD-10 update of inactive term [place] filter in place 08/19/2014 History of pulmonary embolus (PE) 2013 Statin intolerance 07/16/2014 HTN, goal below 130/80 02/22/2014 Venous insufficiency 02/07/2013 ELISSA (obstructive sleep apnea) 09/16/2011 Overview: CPAP 11 cwp Mild, AHI 11.3 but with significant nocturnal hypoxemia Dicks Postsurgical hypothyroidism 06/16/2011 LELIE (generalized anxiety disorder) 09/13 Dyslipidemia 09/04/2009 Overview: [...] mRNA, LNP-s, No Pre serve, 2-Dose Series ([employer]) 12/29/2020,12/18/2020 Pneumococcal Polysaccharide PPV23 (Pneumovax) 08/22/2009,06/15/2006 Seasonal [...] Sign Reading Time Taken Comments Blood Pressure 112/72 07/20/2021 2:07 PM EDT Pulse 92 07/20/2021 2:07 PM EDT Temperature 36.4 C (97.6 F) 07/20/2021 2:07 PM ED T Respiratory Rate - - Oxygen Saturation - - Inhaled Oxygen Concentration - - Weight - - Height - - Body Mass Index - - documented in this encounter Progress Notes * Kevin Whiteside, DO - 07/20/2021 2:23 PM EDT Nursing Notes: Charissa Scanlon LPN 07/20/21 1409 Signed The patient has been properly identified by confirmation of name and date of . Chief Complaint Patient presents with Follow Up pt states she fell last week, states her L knee gave out. pt states she was able to get herself offthe floor. pt states she has a bruise but no other injurries ASSESSMENT/PLAN: 1. Chronic pain syndrome - traMADol HCl 50 MG Oral Tablet (Ultram); Take 1 Tab by mouth every 8 hours as needed for Pain, Severe. Dispense: 90 Tab; Refill: 0 2. Type 2 diabetes mellitus with hemoglobin A1c goal of 7.0%-8.0% ([facility]) 3. Controlled substance agreement signed 4. Hyperparathyroidism, secondary renal ([facility]) 5. Dyslipidemia 6. Vasculitis ([facility]) 7. HTN, goal below 130/80 8. Chronic diastolic congestive heart failure (HCC) 9. 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 Morbid obesity with BMI of 50.0-59.9, adult ([facility]) 11. Need for prophylactic vaccination and inoculation against influenza - INFLUENZA VACC, QUAD, HIGH DOSE (FLUZONE HD) HPI: Stephanie Camp is a 66 year old female who: Presents today in f/u Overall doing ok Fell last week, but doing ok ROS: See HPI for pertinent ROS PHYSICAL EXAMINATION: BP 112/72 (BP Site: Left Arm, BP Position: Sitting, BP Cuff Size: Regular) | Pulse 92 | Temp 36.4 C (97.6 F) (Tympanic) | LMP 03/11/2003 GENERAL: alert, healthy, no distress, well nourished and well developed EYES: PERRL, EOMI, Conjunctiva are pink and non-injected, sclera clear EARS: External ears normal, Canals clear, TM's Normal NOSE: no mucosal erythema, no mucosal edema, no purulent discharge OROPHARYNX: no exudate, no erythema, lips, buccal mucosa, and tongue normal, mucous membranes are moist and dentition normal NECK: supple, no adenopathy, thyroid normal size, non-tender, without nodularity HEART: regular rate & rhythm, no murmurs and no gallops LUNGS: clear to auscultation bilaterally. No wheezing/rales/rhonchi ABDOMEN: abdomen soft, non-tender, normal bowel sounds and no masses or organomegaly SKIN: skin color, texture, turgor are normal, no rashes or significant lesions NEURO: alert & oriented x 3 with fluent speech MSK:Normal Strength and ROM Results for orders placed or performed in visit on 04/06/21 OUTSIDE LAB-CORONAVIRUS (COVID-19) Result Value Ref Range [id number] LAB NEGATIVE NEGATIVE *Note: Due to a large number of results and/or encounters for the requested time period, some results have not been displayed. A complete set of results can be found in Results Review. Patient Active Problem List Diagnosis Code Dyslipidemia E78.5 ELLIE (generalized anxiety disorder) F41.1 Postsurgical hypothyroidism E89.0 ELISSA (obstructive sleep apnea) G47.33 Venous insufficiency I87.2 HTN, goal below 130/80 I10 History of pulmonary embolus (PE) Z86.711 Statin intolerance Z78.9 [place] filter in place Z95.828 Type 2 diabetes mellitus with hemoglobin A1c goal of 7.0%-8.0% ([facility]) E11.9 Fibromyalgia M79.7 Abnormality of gait R26.9 Restless legs syndrome G25.81 Gastroesophageal reflux disease with esophagitis K21.00 Morbid obesity with BMI of 50.0-59.9, adult ([facility]) E66.01, Z68.43 Controlled substance agreement signed Z79.899 Chronic diastolic congestive heart failure ([facility]) I50.32 Mild episode of recurrent major depressive disorder ([facility]) F33.0 Lumbar radiculopathy M54.16 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, NYHA class 1 and CKD stage 3 ([facility]) I13.0, I50.30, N18.30 Hyperparathyroidism, secondary renal ([facility]) N25.81 Vasculitis ([facility]) I77.6 Primary osteoarthritis of left knee M17.12 Spinal stenosis of lumbar region without neurogenic claudication M48.061 Hypotension I95.9 Past Medical History: Diagnosis Date ELSIE (acute kidney injury) ([facility]) 06/12/2018 Allergic rhinitis due to other allergen Backache Diverticulosis of colon 01/28/06 DM type 2, not at goal ([facility]) ELLIE (generalized anxiety disorder) 09/13/2009 Goiter [place] filter in place 08/19/2014 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[facility]) 08/22/2009 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[facility]) 06/12/2018 History of pulmonary embolus (PE) 07/16/2014 [...] 7.0%-8.0% ([facility]) 10/14/2014 ICD-10 update of inactive term Vaginal karmen 07/13/2018 Past Surgical History: Procedure Laterality Date ARTHROPLASTY KNEE TOTAL Right 07/24/14 R COLONOSCOPY, DIAGNOSTIC (RECTUM) 02/18/2016 normal, repeat 10 yrs/[facility] COLONOSCOPY, GI REFERRAL OP 01/28/06 diverticulosis--repeat 10 years INCISION OF WINDPIPE, PLANNED 06/03/2011 TRACHEOSTOMY PLANNED performed by DANNY HOLDER at OR [facility] INJECT DX/THER SUBSTANCE INTERLAMINAR LUMBAR/SACRAL W IMAGE GUIDE 05/26/2020 INJECTION SPINE LUMBAR OR SACRAL performed by Raj Ahn DO at OR [facility] INJECT DX/THER SUBSTANCE INTERLAMINAR LUMBAR/SACRAL W IMAGE GUIDE 05/14/2021 INJECTION SPINE LUMBAR OR SACRAL performed by aRj Ahn DO at OR [facility] KNEE ARTHROSCOPY/DEBRIDEMENT 07/[address] PERMANENT GASTROSTOMY TUBE 09/06/09 GASTROSTOMY WITH CONSTUCTION GASTRIC TUBE performed by AMADOU NUNEZ at [facility] REMOVAL OF THYROID GLAND 06/15/2011 THYROIDECTOMY INCLUDING SUBSTERNAL THYROID CERVICAL APPROACH performed by DANNY HOLDER at OR [facility] REMOVE GALLBLADDER 09/06/09 CHOLECYSTECTOMY performed by AMADOU NUNEZ at [facility] REPAIR RECURRENT INCISIONAL HERNIA 1998 REVISION OF COLOSTOMY, SIMPLE 1997 SACROILIAC JOINT INJECT W/GUIDANCE 07/28/2020 INJECTION SACROILIAC JOINT performed by Raj Ahn DO at OR [facility] SUTURE, LARGE INTESTINE W/COLOSTOMY 1996 perforation R colon with colostomy [place]NA [place]AVA FILTER/LIGATION/CLIP 08/19/09 [place] filter placement through the right femoral 08/19/[address] Lerma at [facility] Current Outpatient Medications Medication Sig [...] Cap by mouth daily. 90 Cap 3 clobetasol propionate (TEMOVATE) 0.05 % cream Apply to rash on the hands and dorsal feet twice daily x 1 week, then as needed for flares. 30 g 1 Magnesium Oxide 400 (241.3 Mg) MG Oral Tablet Take 400 mg by mouth daily. (Patient taking differently: Take 400 mg by mouth daily. Agreed to resume daily dose) 90 Tab 0 DULoxetine HCl 60 MG [...] as needed for Dizziness. 30 Tab 1 Ondansetron HCl 4 MG Oral Tablet (Zofran) Take 1 Tab by mouth every 6 hours as needed for Nausea. 30 Tab 0 Levothyroxine Sodium 50 MCG Oral Tablet (Levoxyl) Take 1 Tab by mouth daily. (at least 30 min prior to breakfast or other meds) 30 Tab 11 traZODone HCl 50 MG Oral Tablet (Desyrel) TAKE ONE TABLET BY MOUTH AT BEDTIME 90 Tab 1 Colchicine 0.6 MG Oral Tablet Take 1/2 tab daily 45 Tab 1 Dicyclomine HCl 20 MG Oral Tablet (Bentyl) Take 1 Tab by mouth 4 times a day as needed for Pain, Mild. For abdominal pain 120 Tab 11 Nortriptyline HCl 50 MG Oral Capsule (Pamelor) Take 1 Cap by mouth at bedtime. 90 Cap 1 Cyclobenzaprine HCl 10 MG Oral Tablet (Flexeril) TAKE ONE TABLET BY MOUTH AT BEDTIME NEEDED FOR SPASM 30 Tab 0 Trulicity 3 MG/0.5ML Subcutaneous Solution Pen-injector (Dulaglutide) Inject 3 mg under the skin once a week. 2 mL 5 Nerve Pain Relief Sublingual Tablet Sublingual Place [...] BREAKFAST OR OTHER MEDS 90 Tab 1 DULoxetine HCl 30 MG Oral Capsule Delayed Release Particles (Cymbalta) TAKE ONE CAPSULE BY MOUTH DAILY. take with 60mg capsule for total of 90mg 90 Cap 1 CPAP every night at bedtime. clonazePAM 0.5 MG Oral Tablet (KlonoPIN) Take 1 Tab by mouth 2 times a day. 60 Tab 0 Gabapentin 300 MG Oral Capsule (Neurontin) Take 300 mg by mouth 2 times a day. metOLazone 2.5 MG Oral Tablet (Zaroxolyn) Take 2.5 mg by mouth daily as needed. Do not take unless instructed by provider traMADol HCl 50 MG Oral Tablet (Ultram) Take 1 Tab by mouth every 8 hours as needed for Pain, Severe. 90 Tab 0 DIURETIC TITRATION PLAN If no improvement on day 3, contact heart failure managing provider. 1 Each 0 Blood Glucose Monitoring Suppl (ONETOUCH ULTRA 2) w/Device KIT Use to test BG values 1 Kit 0 Glucose Blood (ONETOUCH ULTRA BLUE) STRP Check sugars 3-4 times daily, E11.9 400 Strip 3 BD Pen Needle Short U/F 31G X 8 MM (Insulin Pen Needle) Use 5 times daily with insulin 200 Each11 No current facility-administered medications for this visit. Review of patient's allergies indicates: Allergen Reactions Jardiance [Empagliflozin] Other (Please comment) 3 yeast infections in 6 weeks after starting Codeine hallucination Hay Fever [Pollen] Heparin Heparin Induced Thrombocytopenia Hydrocodone Neuro complications (Please comment) Morphine And Related Hallucinations Tetanus Toxoid Other (Please comment) Passed out Kevin Whiteside DO Family [address] [address] I spent 35-45 minutes reviewing this patients chart, face to face with the patient, reviewing labs/results/imaging, and documenting their care. (This note was completed using the dictation program Fluency Direct. As such, there may be misspellings, word substitutions, or other variations that should not change the essence of the clinical content of this encounter note.If there is need for further clarification, please direct questions to the provider listed above.) * Charissa Scanlon LPN - 07/20/2021 2:09 PM EDT PRE - ADMINISTRATION DOCUMENTATION Are you experiencing any cold symptoms or fever? No Have you had Guillain-[place] Syndrome (an illness that causes paralysis) within the last 6 weeks? No Have you had the flu shot in the past? YES Have you ever had a reaction to the flu shot? No Charissa Scanlon LPN, 07/20/2021 2:09 PM Immunization Administration Documentation Time Out Procedure Performed: Yes Patient Identified (Ask Name/Date of ): Yes Does the patient have a fever greater than 101 degrees today? No Patient allergic to latex? No VFC Stock: No Immunization(s) verified: Yes, Immunization Name: Flu, VIS Sheet(s) given: Yes Verified Side and Site: Yes Verified Shot(s) with Parent(s)/Patient: Yes documented in this encounter Nursing Notes * Charissa Scanlon LPN - 07/20/2021 2:07 PM EDT The patient has been properly identified by confirmation of name and date of . Chief Complaint Patient presents with Follow Up pt states she fell last week, states her L knee gave out. pt states she was able to get herself offthe floor. pt states she has a bruise but no other injurries documented in this encounter Plan of Treatment Upcoming Encounters Date Type Specialty Care Team Description 07/28/2021 Home Visit [facility] Vera Capellan RN [address] [address] [phone] 08/18/2021 Office Visit Sleep Disorders Celsa Tafoya CRNP [address] [address] [phone] 10/05/2021 Office Visit Cardiology Rey Woodall MD [address] [address] [phone] 10/05/2021 Office Visit Pharmacy Danuta Ordaz [facility] [address] [address] 01/21/2022 Office Visit Family Medicine Sergey Whitesidevolidia Ocampomelinda, [address] [place] [address] [phone] Scheduled Referrals Name Type Priority Associated Diagnoses Orde r Schedule DERMATOLOGY REFERRAL OP Referral Within 10 days (routine) Neoplasm of uncertain behavior of skin Ordered: 07/20/2021 OPHTHALMOLOGY REFERRAL OP Referral Within 10 days (routine) Cataract of both eyes, unspecified cataract type Ordered: 07/20/2021 Health Maintenance Due Date Last Done Comments Pneumococcal Vaccine: 65+ Years (2 of 2 - PPSV23) 2020 08/22/2009, 06/15/2006 DIABETES-HGBA1C EVERY 6 MONTHS 05/17/2021 11/17/2020, 01/23/2020, 11/07/2019, Additional history exists COVID-19 Vaccine (3 - Pfizer booster) 06/30/2021 12/29/2020, 12/18/2020 CKD GFR USE SMARTSET 30938 09/19/202103/20, 03/12/2021, 12/25/2020, Additional history exists BREAST CANCER SCREENING DISCUSSION YEARLY AGES 40-75 10/01/2021 10/01/2020, 07/10/2019, 06/23/2018, Additional history exists DIABETES-FOOT EXAM 01/14/2022 01/14/2021, 0 11/07/2019, 01/01/2019, Additional history exists CKD PHOS USE SMARTSET 00189 03/12/202202/24, 11/17/2020, 12/24/2019, Additional history exists DIABETES-URINE MICROALBUMIN EVERY 12 MONTHS 03/12/2022 03/12/2021, 03/12/2021, 12/24/2019, Additional history exists CKD HGB USE SMARTSET 17127 03/20/202203/20, 03/20/2021, 03/12/2021, Additional history exists DIABETES-EYE [...] as of this encounter Visit Diagnoses Diagnosis Need for prophylactic vaccination and inoculation against influenza- Primary Chronic pain syndrome Type 2 diabetes mellitus with hemoglobin A1c goal of 7.0%-8.0% (HCC) Controlled substance agreement signed Encounter for long-term (current) use of other medications Hyperparathyroidism, secondary renal (HCC) Secondary hyperparathyroidism (of renal origin) Dyslipidemia Other and unspecified hyperlipidemia Vasculitis (HCC) Arteritis, unspecified HTN, goal below 130/80 Unspecified essential hypertension Chronic diastolic congestive heart failure (HCC) Chronic diastolic heart failure 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
--- OUTSIDE RECORDS SUMMARY | 2023-06-01 04:57 | External Medical Summary | Summary of Care ---
Author Name Unknown Organization [place] [address] Care Team Providers Care Raw Stock Machine Feeder Name Role Phone Stevo Kevin Gonzalez DO Primary Care Provider Encounter Details Date Type Department Care Team Description 07/07/2021 Home Visit Care Coordination [address] [place] [address] Magaly Morales, Community Health Barbering Teacher [address], [place] [id number] Allergies Active Allergy Reactions Severity Noted Date Comments Codeine 07/08/2014 hallucination Pollen 05/18/2019 Heparin 09/04/2009 Heparin Induced Thrombocytopenia Hydrocodone Neuro complications (Please comment) 07/28/2020 Empagliflozin Other (Please comment) Medium 05/17/2018 3 yeast infections in 6 weeks after starting Morphine And Related 09/16/1997 Hallucinations Tetanus Toxoid Other (Please comment) 06/15/2011 Passed out documented as of this encounter (statuses as of 07/07/2021) Medications Medication Sig Dispensed Refills Start Date [...] 0 04/08/2020 Active Blood Glucose Monitoring Suppl (CritiTechTOUCH ULTRA 2) w/Device KIT Use to test [...] mouth daily. 90 Tab 0 07/24/2020 Active DULoxetine HCl 60 MG Oral Capsule [...] at bedtime. 90 Cap 1 02/24/2021 Active Gabapentin 300 MG Oral Capsule (Neurontin)Indication s:Type 2 diabetes mellitus with hemoglobin A1c goal of 7.0%-8.0% (HCC) TAKE ONE CAPSULE BY MOUTH THREE TIMES DAILY 270 Cap 3 02/24/2021 Active Additional Information Patient taking differently: 300 mg Oral BID, Reported on 04/15/2021 Cyclobenzaprine HCl 10 MG Oral Tablet (Flexeril)Indications :Spinal stenosis of lumbar region without neurogenic claudication,Lumbar radiculopathy TAKE ONE TABLET BY MOUTH AT BEDTIME NEEDED FOR SPASM 30 Tab 0 03/02/2021 Active Trulicity 3 MG/0.5ML Subcutaneous Solution Pen-injector (Dulaglutide)Indicati ons:Type 2 diabetes mellitus with hemoglobin A1c goal of 7.0%-8.0% (HCC) Inject 3 mg under the skin once [...] a day. 60 Tab 0 06/16/2021 Active documented as of this encounter (statuses as of 07/07/2021) Active Problems Problem Noted Date Hypotension 12/19/2020 [...] as of this encounter (statuses as of 07/07/2021) Resolved Problems Problem Noted Date Resolved Date [...] as of this encounter (statuses as of 07/07/2021) Immunizations Name Administration Dates Next Due COVID-19 mRNA, LNP-s, No Pre serve, 2-Dose Series ([email or web address]) 12/29/2020,12/18/2020 Pneumococcal Polysaccharide PPV23 (Pneumovax) 08/22/2009,06/15/2006 Seasonal [...] Reading Time Taken Comments Blood Pressure 102/72 07/07/2021 12:50 PM EDT Pulse 95 07/07/2021 4:54 PM EDT Temperature 36.1 C (96.9 F) 07/07/2021 12:50 PM E DT Respiratory Rate 22 07/07/2021 12:50 PM EDT Oxygen Saturation 92% 07/07/2021 12:50 PM EDT Inhaled Oxygen Concentration - - Weight - - Height - - Body Mass Index - - documented in this encounter Progress Notes * Magaly Morales, Community Health Barbering Teacher - 07/07/2021 12:48 PM EDT Community Health Barbering Teacher Visit Date: 07/07/2021 Time: 12:48 PM Name: Stephanie Camp : 1955 Referral Source: launch manager Source of Information: Patient Spoken language: Iranian Patient can read in Iranian: Yes. Patient Financial Services Coordinator needed: No. COVID-19 screening completed: Yes Vitals: Vital signs completed: Yes, abnormal values, escalated to nurse/provider: called [facility] intake BP 98/60 | Pulse 105 | Temp 36.1 C (96.9 F) | Resp 22 | LMP 03/11/2003 | SpO2 92% Condition Changes: Changes in health or social status since last visit: SOB when cleaning had to put on oxygen PT recommended a knee brace patient using daily for knee support increased fatigue. Notes +2 pitting edema right leg ankle and foot also looking glossy Dizzy/light headed with standing Sleeping good using CPAP Does not weigh herself daily was 344lbs.at todays hv. , HR 92. Patient states she is current The patient has new concerns since last visit: Yes, not feeling well Progress towards goals since last visit: Going to PT x2 Qweek Medications: Medication review completed? Yes, no gaps identified Does the patient have barriers to medication adherence? No. Patient reports difficulty paying for medications or might in the future: No. Telehealth: This is a telehealth visit: No. Symptoms Surveys and Evaluations: MAHC10 completed this visit: Yes. Score is greater than 4? Yes, notified Provider/Rn Heart Last flowsheet values for MAHC10: Age 65+: 1 (05/26/2021 11:00 AM) Diagnosis (3 or more co-existing): 1 (05/26/2021 11:00 AM) Prior history of falls within 3 months: 0 (05/26/2021 11:00 AM) Incontinence: 0 (05/26/2021 11:00 AM) Visual impairment: 1 (05/26/2021 11:00 AM) Impaired functional mobility: 1 (05/26/2021 11:00 AM) Environmental hazards: 1 (05/26/2021 11:00 AM) Poly Pharmacy (4 or more prescriptions - any type): 1 (05/26/2021 11:00 AM) Pain affecting level of function: 1 (05/26/2021 11:00 AM) Cognitive impairment: 0 (05/26/2021 11:00 AM) Score - a score of 4 or more is considered at risk for fallin (05/26/2021 11:00 AM) Plan: Reinforced care plan established by care team . Follow Up: Patient encouraged to call the intake phone number for all urgent but not emergent issues. Scheduled to follow up with patient in 6weeks or sooner if needed . Magaly Morales Community Health Barbering Teacher 07/07/2021 12:48 PM documented in this encounter Plan of Treatment Upcoming Encounters Date Type Specialty Care Team Description 07/08/2021 [facility] Visit [facility] Vera Capellan RN [address] [address] [phone] 07/09/2021 Scheduled Telephone [facility] Assistant, Luis Felipe Geoffrey Cisneros [address] [address] [phone] 07/10/2021 Scheduled Telephone [facility], [facility] [address] [address] [phone] 07/20/2021 Office Visit Pharmacy [facility] [place] [address] [place] [address] 07/20/2021 Office Visit Family Medicine Kevin Whiteside DO [address] [address] [phone] 07/28/2021 Home Visit [facility] Vera Capellan RN [address] [place] [address] [phone] 08/18/2021 Office Visit Sleep Disorders Celsa Tafoya CRNP [address] [address] [phone] 10/05/2021 Office Visit Cardiology Rey Woodall MD [address] [place] [address] [phone] Health Maintenance Due Date Last Done Comments Pneumococcal Vaccine: 65+ Years (2 of 2 - PPSV23) 2020 08/22/2009, 06/15/2006 DIABETES-HGBA1C EVERY 6 MONTHS 05/17/2021 11/17/2020, 01/23/2020, 11/07/2019, Additional history exists Influenza Vaccine (FLU shot) (#1) 2021 06/13/2020, 07/23/2019, 06/12/2018, Additional history exists COVID-19 Vaccine (3 - Pfizer booster) 06/30/2021 12/29/2020, 12/18/2020 CKD GFR USE SMARTSET 68111 09/19/202103/20, 03/12/2021, 12/25/2020, Additional history exists BREAST CANCER SCREENING DISCUSSION YEARLY AGES 40-75 10/01/2021 10/01/2020, 07/10/2019, 06/23/2018, Additional history exists DIABETES-FOOT EXAM 01/14/2022 01/14/2021, 0 11/07/2019, 01/01/2019, Additional history exists CKD PHOS USE SMARTSET 92175 03/12/202202/24, 11/17/2020, 12/24/2019, Additional history exists DIABETES-URINE MICROALBUMIN EVERY 12 MONTHS 03/12/2022 03/12/2021, 03/12/2021, 12/24/2019, Additional history exists CKD HGB USE SMARTSET 66344 03/20/202203/20, 03/20/2021, 03/12/2021, Additional history exists DIABETES-EYE [...] on File Type Date Recorded Patient Medical Care Manager Expl 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 Other Health Care Hayden r of Nursing Unit Manager Princess Allen Other Health Care Pow er of Nursing Unit Manager "
--- OUTSIDE RECORDS SUMMARY | 2023-06-01 04:57 | External Medical Summary | Summary of Care ---
Author Name Unknown Organization [place] [address] Care Team Providers Care Telecommunication Operator Name Role Phone Kevin Whiteside DO Primary Care Provider Reason for Visit * Reason Onset Date Comments Referral 07/20/2021 Encounter Details Date Type Department Care Team Description 07/20/2021 Telephone Family Practice [facility] [address] [place] [address] Kevin Whiteside DO [address] [place] [address] Referral Allergies Active Allergy Reactions Severity Noted Date Comments Codeine 07/08/2014 hallucination Pollen 05/18/2019 Heparin 09/04/2009 Heparin Induced Thrombocytopenia Hydrocodone Neuro complications (Please comment) 07/28/2020 Empagliflozin Other (Please comment) Medium 05/17/2018 3 yeast infections in 6 weeks after starting Morphine And Related 09/16/1997 Hallucinations Tetanus Toxoid Other (Please comment) 06/15/2011 Passed out documented as of this encounter (statuses as of 07/27/2021) Medications Medication Sig Dispensed Refills Start Date [...] 0 04/08/2020 Active Blood Glucose Monitoring Suppl (BlipTOUCH ULTRA 2) w/Device KIT Use to test [...] times a day. 60 Tab 0 06/16/2021 Discontinue d(Refill) documented as of this encounter (statuses as of 07/27/2021) Active Problems Problem Noted Date Hypotension 12/19/2020 [...] 10/14/2014 Overview: ICD-10 update of inactive term [place] filter in place 08/19/2014 History of pulmonary embolus (PE) 2013 Statin intolerance 07/16/2014 HTN, goal below 130/80 02/22/2014 Venous insufficiency 02/07/2013 ELISSA (obstructive sleep apnea) 09/16/2011 Overview: CPAP 11 cwp Mild, AHI 11.3 but with significant nocturnal hypoxemia Dicks Postsurgical hypothyroidism 06/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 documented as of this encounter (statuses as of 07/27/2021) Resolved Problems Problem Noted Date Resolved Date [...] as of this encounter (statuses as of 07/27/2021) Immunizations Name Administration Dates Next Due COVID-19 [...] encounter Miscellaneous Notes * Telephone Encounter - Miranda Quick OSA - 07/27/2021 9:22 AM EDT Mailed patient a letter asking her to call us to schedule an appointment. * Telephone Encounter - Miranda Quick OSA - 07/27/2021 9:21 AM EDT Called patient, left message to return call. * Telephone Encounter - Miranda Quick, ELISSA - 07/24/2021 9:09 AM EDT Called patient, left message to return call. * Telephone Encounter - Miranda Quick OSA - 07/23/2021 11:01 AM EDT Called patient, went straight to voicemail. Let message to return call. The Aug.04 appts are still available and also Jul.30 at 2pm is available with [facility] in [place]. * Telephone Encounter - Valorie Hernandez OSA - 07/23/2021 10:55 AM EDT Patient returning your call today. You had July 21 which is past and also August 04 at 1:40 pm or 3:00 pm in the [place] location. Any of those OK? Please call patient and advise. [phone] * Telephone Encounter - Miranda Quick OSA - 07/22/2021 9:14 AM EDT Called patient, left message to return call. * Telephone Encounter - Miranda Quick OSA - 07/20/2021 3:02 PM EDT Called patient, left message to return call. May offer 07/21 at 10:40am with [facility] at or 08/04 at 1:40pm or 3pm with [facility] in [place] if still available. * Telephone Encounter - Emeli Almeida OSA - 07/20/2021 2:45 PM EDT Pt needs scheduled for Derm referral. Thanks! documented in this encounter Plan of Treatment Upcoming Encounters Date Type Specialty Care Team Description 07/28/2021 Home Visit [facility] Vera Capellan RN [address] [address] [phone] 08/18/2021 Office Visit Sleep Disorders Celsa Tafoya CRNP [address] [address] [phone] 10/05/2021 Office Visit Cardiology Rey Woodall MD [address] [address] [phone] 10/05/2021 Office Visit Pharmacy [facility] [place] [address] [address] 01/21/2022 Office Visit Family Medicine Kevin Whiteside DO [address] [address] [phone] Health Maintenance Due Date Last Done Comments Pneumococcal Vaccine: 65+ Years (2 of 2 - PPSV23) 2020 08/22/2009, 06/15/2006 DIABETES-HGBA1C EVERY 6 MONTHS 05/17/2021 11/17/2020, 01/23/2020, 11/07/2019, Additional history exists COVID-19 Vaccine (3 - Pfizer booster) 06/30/2021 12/29/2020, 12/18/2020 CKD GFR USE SMARTSET 48379 09/19/202103/20, 03/12/2021, 12/25/2020, Additional history exists BREAST CANCER SCREENING DISCUSSION YEARLY AGES 40-75 10/01/2021 10/01/2020, 07/10/2019, 06/23/2018, Additional history exists DIABETES-FOOT EXAM 01/14/2022 01/14/2021, 0 11/07/2019, 01/01/2019, Additional history exists CKD PHOS USE SMARTSET 15511 03/12/202202/24, 11/17/2020, 12/24/2019, Additional history exists DIABETES-URINE MICROALBUMIN EVERY 12 MONTHS 03/12/2022 03/12/2021, 03/12/2021, 12/24/2019, Additional history exists CKD HGB USE SMARTSET 99465 03/20/202203/20, 03/20/2021, 03/12/2021, Additional history exists DIABETES-EYE [...] Documents on File Type Date Recorded Patient Well Surveying Engineer Expl 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 Camp Other Health Care Hayden r of Anvil[employer] Princess Allen Other Health Care Pow er of Anvilsmith
--- OUTSIDE RECORDS SUMMARY | 2023-06-01 04:57 | External Medical Summary | Summary of Care ---
Author Name Unknown Organization [place] [address] Care Team Providers Care Stile Ripsaw Operator Name Role Phone Migue Whiteside DO Primary Care Provider Reason for Visit * Reason Onset Date Comments Medication Refill 07/23/2021 Encounter Details Date Type Department Care Team Description 07/23/[address] [facility] [address] [place] [address] [...] as of this encounter (statuses as of 07/23/2021) Medications Medication Sig Dispensed Refills Start Date [...] 0 04/08/2020 Active Blood Glucose Monitoring Suppl (TenasiTechUCH ULTRA 2) w/Device KIT Use to test [...] of 7.0%-8.0% ([facility]) Inject 60 Units under [...] of 7.0%-8.0% ([facility]) Inject 3 mg under the skin once [...] 2 times a day. 60 Tab 0 07/23/2021 Active clonazePAM 0.5 MG Oral Tablet (KlonoPIN)Indicatio ns:Anxiety state Take 1 Tab by mouth 2 times a day. 60 Tab 0 06/16/2021 1 Discontinue d(Refill) documented as of this encounter (statuses as of 07/23/2021) Active Problems Problem Noted Date Hypotension 12/19/2020 [...] as of this encounter (statuses as of 07/23/2021) Resolved Problems Problem Noted Date Resolved Date [...] as of this encounter (statuses as of 07/23/2021) Immunizations Name Administration Dates Next Due COVID-19 [...] Miscellaneous Notes * Telephone Encounter - Migue Whtieside DO - 07/23/2021 1:59 PM EDT Signed Prescriptions: Disp Refills clonazePAM 0.5 MG Oral Tablet (KlonoPIN) 60 Tab 0 Sig: Take 1 Tab by mouth 2 times a day. Authorizing Provider: MIGUE WHITESIDE * Telephone Encounter - Stephanie Cook, MED ASSIST - 07/23/2021 9:21 AM EDT Pending Prescriptions: Disp Refills clonazePAM 0.5 MG Oral Tablet (KlonoPIN) 60 Tab 0 Sig: Take 1 Tab by mouth 2 times a day. documented in this encounter Plan of Treatment Upcoming Encounters Date Type Specialty Care Team Description 07/28/2021 Home Visit [facility] Vera Capellan RN [address] [address] [phone] 08/18/2021 Office Visit Sleep Disorders Celsa Tafoya CRNP [address] [address] [phone] 10/05/2021 Office Visit Cardiology Rey Woodall MD [address] [address] [phone] 10/05/2021 Office Visit Pharmacy [facility] [address] [address] 01/21/2022 Office Visit Family Medicine Migue Whiteside DO [address] [address] [phone] Health Maintenance Due Date Last Done Comments Pneumococcal Vaccine: 65+ Years (2 of 2 - PPSV23) 2020 08/22/2009, 06/15/2006 DIABETES-HGBA1C EVERY 6 MONTHS 05/17/2021 11/17/2020, 01/23/2020, 11/07/2019, Additional history exists COVID-19 Vaccine (3 - Pfizer booster) 06/30/2021 12/29/2020, 12/18/2020 CKD GFR USE SMARTSET 38212 09/19/202103/20, 03/12/2021, 12/25/2020, Additional history exists BREAST CANCER SCREENING DISCUSSION YEARLY AGES 40-75 10/01/2021 10/01/2020, 07/10/2019, 06/23/2018, Additional history exists DIABETES-FOOT EXAM 01/14/2022 01/14/2021, 0 11/07/2019, 01/01/2019, Additional history exists CKD PHOS USE SMARTSET 18279 03/12/2022 0603/2021, 11/17/2020, 12/24/2019, Additional history exists DIABETES-URINE MICROALBUMIN EVERY 12 MONTHS 03/12/2022 03/12/2021, 03/12/2021, 12/24/2019, Additional history exists CKD HGB USE SMARTSET 98035 03/20/202203/20, 03/20/2021, 03/12/2021, Additional history exists DIABETES-EYE [...] on File Type Date Recorded Patient Front Office Administrator Expl 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 Camp Other Health Care Hayden r of Editor Managing Newspaper [phone] ([place]) Princess Allen Other Health Care Pow er of Editor Managing Newspaper
--- OUTSIDE RECORDS SUMMARY | 2023-06-01 04:57 | External Medical Summary | Summary of Care ---
Author Name Unknown Organization [place] [address] Care Team Providers Care Rfid Strategist Name Role Phone Migue Whiteside DO Primary Care Provider Reason for Visit * Reason Comments eRx-Medication Refill Encounter Details Date Type Department Care Team Description 07/24/2021 Refill Family Practice [facility] [address] [place] [address] [...] 0 0 Active Blood Glucose Monitoring Suppl ([employer] ULTRA 2) w/Device KIT Use to [...] goal of 7.0%-8.0% ([facility]) Inject 60 Units under the [...] FOR SPASM 30 Tab 0 1 Active Trulicity 3 MG/0.5ML Subcutaneous Solution Pen-injector (Dulaglutide)Indica tions:Type 2 diabetes mellitus with hemoglobin A1c goal of 7.0%-8.0% ([facility]) Inject 3 mg under the skin once a week. 2 mL 5 1 Active Nerve Pain Relief Sublingual Tablet SublingualIndicatio ns:pt taking Nervive, nerve relief tablets at bedtime Place under the tongue. Indications: pt taking Nervive, nerve relief tablets at bedtime 0 Active NovoLOG FlexPen 100 UNIT/ML Subcutaneous Solution Pen-injector (insulin aspart)Indications: Type 2 diabetes mellitus with hemoglobin A1c goal of 7.0%-8.0% ([facility]) Inject 40 units with meals [...] TWICE DAILY 60 Tab 0 1 Active clonazePAM 0.5 MG Oral Tablet (KlonoPIN)Indicatio ns:Anxiety state Take 1 Tab by mouth 2 times a day. 60 Tab 0 1 07/27/20 21 Discontinued documented as of this encounter [...] Telephone Encounter - Migue Whiteside DO - 07/27/2021 9:26 AM EDT Signed Prescriptions: Disp Refills clonazePAM 0.5 MG Oral Tablet (KlonoPIN) 60 Tab 0 Sig: TAKE ONE TABLET BY MOUTH TWICE DAILY Authorizing Provider: MIGUE WHITESIDE * Telephone Encounter - Enrico Mesa RPh - 07/27/2021 8:55 AM EDT Pending Prescriptions: Disp Refills clonazePAM 0.5 MG Oral Tablet (KlonoPIN) *60 Tab 0 Sig: TAKE ONE TABLET BY MOUTH TWICE DAILY * Telephone Encounter - Enrico Mesa RPh - 07/27/2021 8:54 AM EDT I have reviewed the patients controlled substance dispensing history in the Prescription Drug Monitoring Program in compliance with the [facility] regulations before prescribing a controlled substance. PDMP checked on 07/27/2021. Pending Prescriptions: Disp Refills clonazePAM 0.5 MG Oral Tablet (KlonoPIN) *60 Tab 0 Sig: TAKE ONE TABLET BY MOUTH TWICE DAILY Last Office/Telemedicine Visit: 07/20/2021 Next Office Visit: 01/21/2022 Scheduled Provider(s): Migue Whiteside, Date medication was last filled: 06/16 Date medication is due for refill: 07/15 Pharmacy: [id number] Is this request for a controlled substance?Yes and Urine Drug Screen not completed Toxicology results: Results for orders placed [...] Results Review. Please approve if appropriate. Thanks, Enrico Mesa, PharmD Clinical Pharmacist TelePharmacy 07/27/2021 8:54 AM documented in this encounter Plan of Treatment Upcoming Encounters Date Type Specialty Care Team Description 07/28/2021 Home Visit [facility] Vera Capellan, RN [address] [address] [phone] 08/18/2021 Office Visit Sleep Disorders Celsa Tafoya CRNP [address] [address] [phone] 10/05/2021 Office Visit Cardiology Rey Woodall MD [address] [address] [phone] 10/05/2021 Office Visit Pharmacy [facility] [place] [address] [address] 01/21/2022 Office Visit Family Medicine Migue Whiteside DO [address] [address] [phone] Health Maintenance Due Date Last Done Comments Pneumococcal Vaccine: 65+ Years (2 of 2 - PPSV23) 2020 08/22/2009, 06/15/2006 DIABETES-HGBA1C EVERY 6 MONTHS 05/17/2021 11/17/2020, 01/23/2020, 11/07/2019, Additional history exists COVID-19 Vaccine (3 - Pfizer booster) 06/30/2021 12/29/2020, 12/18/2020 CKD GFR USE SMARTSET 43619 09/19/202103/20, 03/12/2021, 12/25/2020, Additional history exists BREAST CANCER SCREENING DISCUSSION YEARLY AGES 40-75 10/01/2021 10/01/2020, 07/10/2019, 06/23/2018, Additional history exists DIABETES-FOOT EXAM 01/14/2022 01/14/2021, 0 11/07/2019, 01/01/2019, Additional history exists CKD PHOS USE SMARTSET 51781 03/12/202202/24, 11/17/2020, 12/24/2019, Additional history exists DIABETES-URINE MICROALBUMIN EVERY 12 MONTHS 03/12/2022 03/12/2021, 03/12/2021, 12/24/2019, Additional history exists CKD HGB USE SMARTSET 86483 03/20/202203/20, 03/20/2021, 03/12/2021, Additional history exists DIABETES-EYE [...] on File Type Date Recorded Patient Retail Sales Specialist Expl 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 Camp Other Health Care Hayden r of General Foundry Worker Princess Allen Other Health Care Caio er of General Foundry Worker
--- OUTSIDE RECORDS SUMMARY | 2023-06-01 04:57 | External Medical Summary | Summary of Care ---
Author Name Unknown Organization [facility] Address [place] [address] Care Team Providers Care Community Mental Health Social Worker Name Role Phone Kevin Whiteside DO Primary Care Provider Reason for Visit * Reason Onset Date Comments [facility]: Maintenance 07/10/2021 Encounter Details Date Type Department Care Team Description 07/10/2021 Scheduled Telephone [facility], [facility] [address] [employer] [address] [place] [address] Coordinator, [facility] [address] [employer] [place] [address] [phone] Allergies Active Allergy Reactions Severity Noted Date Comments Codeine 07/08/2014 hallucination Pollen 05/18/2019 Heparin 09/04/2009 Heparin Induced Thrombocytopenia Hydrocodone Neuro complications (Please comment) 07/28/2020 Empagliflozin Other (Please comment) Medium 05/17/2018 3 yeast infections in 6 weeks after starting Morphine And Related 09/16/1997 Hallucinations Tetanus Toxoid Other (Please comment) 06/15/2011 Passed out documented as of this encounter (statuses as of 07/10/2021) Medications Medication Sig Dispensed Refills Start Date [...] 0 04/08/2020 Active Blood Glucose Monitoring Suppl (ArkimediaUCH ULTRA 2) w/Device KIT Use to test [...] of 7.0%-8.0% ([facility]) Inject 3 mg under the [...] as of this encounter (statuses as of 07/10/2021) Active Problems Problem Noted Date Hypotension 12/19/2020 [...] as of this encounter (statuses as of 07/10/2021) Resolved Problems Problem Noted Date Resolved Date [...] as of this encounter (statuses as of 07/10/2021) Immunizations Name Administration Dates Next Due COVID-19 [...] Telephone Encounter - Karyn Clarke LPN - 07/10/2021 1:25 PM EDT Phone call f/u DTP started 07/08 Spoke with patient Today weight was 338lb Having some vertigo today-ongoing issue for patient Breathing is good today Swelling remains down Completed DTP yesterday Denies any needs or concerns today Patient's 'Red Flags': 1. Worsening sob 2. Increased abdominal bloating 3. Increased edema documented in this encounter Plan of Treatment Upcoming Encounters Date Type Specialty Care Team Description 07/20/2021 Office Visit Pharmacy [facility] [place] [address] [place] [address] 07/20/2021 Office Visit Family Medicine Kevin Whiteside DO [address] [place] [address] [address] [phone] 07/28/2021 Home Visit [facility] Vera Capellan RN [address] [place] [address] [address] [phone] 08/18/2021 Office Visit Sleep Disorders Celsa Tafoya CRNP [address] [place] [address] [address] [phone] 10/05/2021 Office Visit Cardiology Rey Woodall MD [address] [place] [address] [address] [phone] Health Maintenance Due Date Last Done Comments Pneumococcal Vaccine: 65+ Years (2 of 2 - PPSV23) 2020 08/22/2009, 06/15/2006 DIABETES-HGBA1C EVERY 6 MONTHS 05/17/2021 11/17/2020, 01/23/2020, 11/07/2019, Additional history exists Influenza Vaccine (FLU shot) (#1) 2021 06/13/2020, 07/23/2019, 06/12/2018, Additional history exists COVID-19 Vaccine (3 - Pfizer booster) 06/30/2021 12/29/2020, 12/18/2020 CKD GFR USE SMARTSET 77296 09/19/202103/20, 03/12/2021, 12/25/2020, Additional history exists BREAST CANCER SCREENING DISCUSSION YEARLY AGES 40-75 10/01/2021 10/01/2020, 07/10/2019, 06/23/2018, Additional history exists DIABETES-FOOT EXAM 01/14/2022 01/14/2021, 0 11/07/2019, 01/01/2019, Additional history exists CKD PHOS USE SMARTSET 54240 03/12/202202/24, 11/17/2020, 12/24/2019, Additional history exists DIABETES-URINE MICROALBUMIN EVERY 12 MONTHS 03/12/2022 03/12/2021, 03/12/2021, 12/24/2019, Additional history exists CKD HGB USE SMARTSET 76017 03/20/202203/20, 03/20/2021, 03/12/2021, Additional history exists DIABETES-EYE [...] Documents on File Type Date Recorded Patient Automotive Collision Estimator Expl 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 Camp Other Health Care Hayden r of Test Design Engineer Princess Allen Other Health Care Pow er of Test Design Engineer
--- OUTSIDE RECORDS SUMMARY | 2023-06-01 04:58 | External Medical Summary | Summary of Care ---
Author Name Unknown Organization [facility] Address [facility] [place] [address] Care Team Providers Care Teacher Of Family And Consumer Science Name Role Phone Kevin Whiteside DO Primary Care Provider Reason for Visit * Reason Onset Date Comments [facility]: Acute 07/07/2021 Encounter Details Date Type Department Care Team Description 07/07/2021 Telephone [facility], [facility] [address] [facility] [place] [address] [facility], Nurse [facility] [address] [facility] [place] [id number] [facility]: Acute Allergies Active Allergy [...] 0 04/08/2020 Active Blood Glucose Monitoring Suppl ([employer] ULTRA 2) w/Device KIT Use to [...] A1c goal of 7.0%-8.0% ([facility]) TAKE ONE CAPSULE BY MOUTH THREE [...] goal of 7.0%-8.0% ([facility]) Inject 3 mg under the [...] mRNA, LNP-s, No Pre serve, 2-Dose Series ([employer]) 12/29/2020,12/18/2020 Pneumococcal Polysaccharide PPV23 (Pneumovax) 08/22/2009,06/15/2006 Seasonal [...] Telephone Encounter - Rosio Galan RN - 07/07/2021 4:35 PM EDT Phone call to patient to activate her DTP today, take an additional Lasix 20mg daily for 2-3 days. Is scheduled with Vera Capellan tomorrow afternoon. Vera, please clarify how many days for DTP when you see her tomorrow. ROMEO Capps Ballaster [facility] * Telephone Encounter - Alvin Lechuga DO - 07/07/2021 3:16 PM EDT [facility] Phone Encounter Background information: Reviewed chart Recurrent HF sx as outlined in triage note Assessment and Recommendations: -Initiate DTP today w/ f/u To Do: I would have her start her DTP today but I feel she needs a HV for assessment and possible intervention tomorrow Alvin Lechuga DO [facility] - [facility] 07/07/2021 Routed to pt's [facility] Care Team and additional relevant parties as an FYI * Telephone Encounter - Rosio Galan RN - 07/07/2021 1:09 PM EDT [facility] radiologic technologist Acute Call Date: 07/07/2021 Time: 1:09 PM Name: Stephanie Camp : 1955 Caller: Magaly Relationship to [facility] No chief complaint on file. HPI: Stephanie Camp is a 66 year old female who's [facility] is calling [employer] [facility] Intake to report that she is making a 6 week check up on patient and found her not feeling well, B/P 98/60, HR 105. States she was vacuuming and became very weak in her legs, increased SOB, increased fatigue. Notes +2 pitting edema to BLE's that is her baseline with right leg looking glossy per LES. After episode, patient sat down and put her oxygen on @2lpm. Afebrile, -cough/congestion, dizzy/light headed only whengetting up, slept ok last night with CPAP, - abdominal bloating. Does not weigh herself daily and last reported weight was 327lbs, today at time of call after breakfast and some fluids was 344lbs. Gina ent ate dinner out night with friend at [facility]. BP done again was 102/64, HR 92. Patient states she is currently not on any BP meds as she was taken off of them previously for hypotension. Nursing Assessment: Patient's chief complaint for this call: Other, describe increased SOB, fatigue, weakness Symptom Assessment Onset of Symptoms: Less than 24 hours What makes symptom worse: na What makes symptom better: na What has the patient tried to treat the symptom: na Fall within a week of symptom onset: No Pain Has pain baseline to back 5/10 with movement Baseline Assessment Able to performing ADLs at baseline (walking, daily tasks, etc.): Yes Chief Complaint is related to a chronic condition: Yes Chronic Condition: HF and DM Chief Complaint is a change in baseline: Yes, see above Patient prescribed oxygen? Yes, 2L/min, using as prescribed. Patient has been ordered DME equipment (assistive devices, respiratory equipment, etc.): Yes Describe DME devices: CPAP Patient is using DME device as directed: Yes Medication Reconciliation: (See medication list) Received flu shot this season: Yes Taking medication as ordered: Yes Medications ordered/taking to treat reason for call: No Heart failure symptoms: Yes , Is Diuretic Titration Protocol (DTP) ordered? Yes Describe Diuretic Titration Protocol (DTP): extra Lasix 20mg additional for 2-3 days Diuretic Titration Protocol (DTP) activated: No Intake recommends initiating Diuretic Titration Protocol (DTP): No COPD exacerbation symptoms: No Reinforcement Education: [place] [facility] for recommendations Treatment/Plan: Level of call: Acute Appointment scheduled for same day: No Provider Name: TBD Treatment plan until appointment: was seen by LES today Call back instructions provided to patient. ROMEO Capps Ballaster [facility] documented in this encounter Plan of Treatment Upcoming Encounters Date Type Specialty Care Team Description 07/08/2021 Home Visit [facility] Vera Capellan RN [address] [place] [address] [phone] 07/09/2021 Scheduled Telephone [facility] [place], [facility] [address] [place] [address] [address] [phone] 07/10/2021 Scheduled Telephone [facility] [place], [facility] [address] [place] [address] [address] [phone] 07/20/2021 Office Visit Pharmacy [facility] [address] [place] [address] [address] 07/20/2021 Office Visit Family Medicine Kevin Whiteside DO [address] [place] [address] [address] [phone] 07/28/2021 Home Visit [facility] Vera Capellan RN [address] [place] [address] [address] [phone] 08/18/2021 Office Visit Sleep Disorders Celsa Tafoya CRNP [address] [place] [address] [address] [phone] 10/05/2021 Office Visit Cardiology Rey Woodall MD [address] [place] [address] [address] [phone] Health Maintenance Due Date Last Done Comments Pneumococcal Vaccine: 65+ Years (2 of 2 - PPSV23) 2020 08/22/2009, 06/15/2006 DIABETES-HGBA1C EVERY 6 MONTHS 05/17/2021 11/17/2020, 01/23/2020, 11/07/2019, Additional history exists Influenza Vaccine (FLU shot) (#1) 2021 06/13/2020, 07/23/2019, 06/12/2018, Additional history exists COVID-19 Vaccine (3 - Pfizer booster) 06/30/2021 12/29/2020, 12/18/2020 CKD GFR USE SMARTSET 88387 09/19/202103/20, 03/12/2021, 12/25/2020, Additional history exists BREAST CANCER SCREENING DISCUSSION YEARLY AGES 40-75 10/01/2021 10/01/2020, 07/10/2019, 06/23/2018, Additional history exists DIABETES-FOOT EXAM 01/14/2022 01/14/2021, 0 11/07/2019, 01/01/2019, Additional history exists CKD PHOS USE SMARTSET 65006 03/12/202202/24, 11/17/2020, 12/24/2019, Additional history exists DIABETES-URINE MICROALBUMIN EVERY 12 MONTHS 03/12/2022 03/12/2021, 03/12/2021, 12/24/2019, Additional history exists CKD HGB USE SMARTSET 57418 03/20/202203/20, 03/20/2021, 03/12/2021, Additional history exists DIABETES-EYE [...] Documents on File Type Date Recorded Patient Solar Installation Crew Supervisor Expl 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 Camp Other Health Care Hayden r of Plasma Center Technician Princess Allen Other Health Care Pow er of Plasma Center Technician
--- OUTSIDE RECORDS SUMMARY | 2023-06-01 04:58 | External Medical Summary | Summary of Care ---
Author Name Unknown Organization [place] [address] Care Team Providers Care Building Energy Retrofit Technician Name Role Phone Kevin Whiteside DO Primary Care Provider Reason for Visit * Reason Onset Date Comments [facility]: Maintenance 06/29/2021 Encounter Details Date Type Department Care Team Description 06/29/2021 Telephone [facility], [facility] 132 [facility] [place] [id number] Services, Scheduling [address] [place] [address] [facility]: Maintenance Allergies Active Allergy Reactions Severity Noted Date Comments Codeine 07/08/2014 hallucination Pollen 05/18/2019 Heparin 09/04/2009 Heparin Induced Thrombocytopenia Hydrocodone Neuro complications (Please comment) 07/28/2020 Empagliflozin Other (Please comment) Medium 05/17/2018 3 yeast infections in 6 weeks after starting Morphine And Related 09/16/1997 Hallucinations Tetanus Toxoid Other (Please comment) 06/15/2011 Passed out documented as of this encounter (statuses as of 06/29/2021) Medications Medication Sig Dispensed Refills Start Date [...] 0 04/08/2020 Active Blood Glucose Monitoring Suppl (IncentOneUCH ULTRA 2) w/Device KIT Use to test [...] 7.0%-8.0% ([facility]) Inject 60 Units under the skin daily. [...] of 7.0%-8.0% ([facility]) TAKE ONE CAPSULE BY MOUTH THREE TIMES [...] 7.0%-8.0% ([facility]) Inject 3 mg under the skin once [...] as of this encounter (statuses as of 06/29/2021) Active Problems Problem Noted Date Hypotension 12/19/2020 [...] as of this encounter (statuses as of 06/29/2021) Resolved Problems Problem Noted Date Resolved Date [...] as of this encounter (statuses as of 06/29/2021) Immunizations Name Administration Dates Next Due COVID-19 mRNA, LNP-s, No Pre serve, 2-Dose Series ([employer]) 12/29/2020,12/18/2020 Pneumococcal Polysaccharide PPV23 (Pneumovax) 08/22/2009,06/15/2006 Seasonal [...] Telephone Encounter - Vickie Madsen OSA - 06/29/2021 8:34 AM EDT Incoming call from patient she needs to reschedule [facility] Elena [facility] visit on Tuesday. Message sent to her about cancelation. ELISSA Kaufman documented in this encounter Plan of Treatment Upcoming Encounters Date Type Specialty Care Team Description 07/07/2021 Home Visit Family Medicine Magaly Morales, Community Health Director Revenue [address] [place] [address] [phone] 07/20/2021 Office Visit Pharmacy [facility] [place] [address] [place] [address] 07/20/2021 Office Visit Family Medicine Kevin Whiteside DO [address] [place] [address] [phone] 07/28/2021 Home Visit [facility] Vera Capellan RN [address] [place] [address] [address] [phone] 08/18/2021 Office Visit Sleep Disorders Celsa Tafoya CRNP [address] [place] [address] [address] [phone] 10/05/2021 Office Visit Cardiology Rey Woodall MD [address] [place] [address] [phone] Health Maintenance Due Date Last Done Comments Pneumococcal Vaccine: 65+ Years (2 of 2 - PPSV23) 2020 08/22/2009, 06/15/2006 DIABETES-HGBA1C EVERY 6 MONTHS 05/17/2021 11/17/2020, 01/23/2020, 11/07/2019, Additional history exists Influenza Vaccine (FLU shot) (#1) 2021 06/13/2020, 07/23/2019, 06/12/2018, Additional history exists CKD GFR USE SMARTSET 44936 09/19/202103/20, 03/12/2021, 12/25/2020, Additional history exists BREAST CANCER SCREENING DISCUSSION YEARLY AGES 40-75 10/01/2021 10/01/2020, 07/10/2019, 06/23/2018, Additional history exists DIABETES-FOOT EXAM 01/14/2022 01/14/2021, 0 11/07/2019, 01/01/2019, Additional history exists CKD PHOS USE SMARTSET 47643 03/12/202202/24, 11/17/2020, 12/24/2019, Additional history exists DIABETES-URINE MICROALBUMIN EVERY 12 MONTHS 03/12/2022 03/12/2021, 03/12/2021, 12/24/2019, Additional history exists CKD HGB USE SMARTSET 25863 03/20/202203/20, 03/20/2021, 03/12/2021, Additional history exists DIABETES-EYE EXAM 04/14/2022 04/14/2021, , 04/05/2019, Additional history exists *DEPRESSION SCREENING,ANNUAL FOR PTS 12 AND OVER Addressed 06/12/2018 Overridden with the intention of not completing the topic Zoster Vaccines Completed 05/08/2020, 10/27, 12/11/2015 COVID-19 Vaccine Completed 12/29/2020, 12/18/2020 MENINGOCOCCAL (MENACTRA/MENVEO) Aged Out No longer eligible based on patient's age to complete this topic documented as of this encounter Implants Not on filedocumented as of this encounter Advance Directives Documents on File Type Date Recorded Patient Receiving Operator Expl 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 Camp Other Health Care Hayden r of Sewer Bricklayer Princess Allen Other Health Care Pow er of Sewer Bricklayer
--- OUTSIDE RECORDS SUMMARY | 2023-06-01 04:58 | External Medical Summary | Summary of Care ---
Author Name Unknown Organization [facility] Address [place] [address] Care Team Providers Care Steel Die Engraver Name Role Phone Kevin Whiteside DO Primary Care Provider Reason for Visit * Reason Onset Date Comments [facility]: Maintenance 06/10/2021 Encounter Details Date Type Department Care Team Description 06/10/2021 Scheduled Telephone [facility], [facility] [address] [place] [address] Coordinator, [facility] [place] [address] [employer] [place] [address] [phone] Allergies Active Allergy Reactions Severity Noted Date Comments Codeine 07/08/2014 hallucination Pollen 05/18/2019 Heparin 09/04/2009 Heparin Induced Thrombocytopenia Hydrocodone Neuro complications (Please comment) 07/28/2020 Empagliflozin Other (Please comment) Medium 05/17/2018 3 yeast infections in 6 weeks after starting Morphine And Related 09/16/1997 Hallucinations Tetanus Toxoid Other (Please comment) 06/15/2011 Passed out documented as of this encounter (statuses as of 06/10/2021) Medications Medication Sig Dispensed Refills Start Date [...] 0 04/08/2020 Active Blood Glucose Monitoring Suppl ([employer]CH ULTRA 2) w/Device KIT Use to [...] A1c goal of 7.0%-8.0% ([facility]) TAKE ONE CAPSULE BY MOUTH THREE [...] goal of 7.0%-8.0% ([facility]) Inject 3 mg under the skin [...] 2 times a day. 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 documented as of this encounter (statuses as of 06/10/2021) Resolved Problems Problem Noted Date Resolved Date [...] as of this encounter (statuses as of 06/10/2021) Immunizations Name Administration Dates Next Due COVID-19 mRNA, LNP-s, No Pre serve, 2-Dose Series ([employer]) 12/29/2020,12/18/2020 Pneumococcal Polysaccharide PPV23 (Pneumovax) 08/22/2009,06/15/2006 Seasonal [...] Telephone Encounter - Karyn Clarke LPN - 06/10/2021 10:32 AM EDT Acute visit f/u phone call O2 stable? HR stable? Wearing O2? Weight today? No answer Left message requesting return call documented in this encounter Plan of Treatment Upcoming Encounters Date Type Specialty Care Team Description 06/12/2021 Scheduled Telephone [facility] Oil Transport Driver, [facility] [place] [address] [place] [address] [address] [phone] 06/16/2021 Home Visit [facility] Vera Capellan RN [address] [place] [address] [address] [phone] 07/01/2021 Home Visit [facility] Rema Real LSW [address] [place] [address] [address] [phone] 07/07/2021 Home Visit Family Medicine Magaly Morales, Community Health Traffic Checker [address] [place] [address] [phone] 07/20/2021 Office Visit Pharmacy Danuta Ordaz [address] [place] [address] [address] 07/20/2021 Office Visit Family Medicine Kevin Whiteside DO [address] [place] [address] [address] [phone] 08/18/2021 Office Visit Sleep Disorders Celsa Tafoya CRNP [address] [place] [address] [address] [phone] 10/05/2021 Office Visit Cardiology Rey Woodall MD [address] [place] [address] [address] [phone] Health Maintenance Due Date Last Done Comments Pneumococcal Vaccine: 65+ Years (2 of 2 - PPSV23) 2020 08/22/2009, 06/15/2006 DIABETES-HGBA1C EVERY 6 MONTHS 05/17/2021 11/17/2020, 01/23/2020, 11/07/2019, Additional history exists Influenza Vaccine (FLU shot) (#1) 2021 06/13/2020, 07/23/2019, 06/12/2018, Additional history exists CKD GFR USE SMARTSET 54022 09/19/202103/20, 03/12/2021, 12/25/2020, Additional history exists BREAST CANCER SCREENING DISCUSSION YEARLY AGES 40-75 10/01/2021 10/01/2020, 07/10/2019, 06/23/2018, Additional history exists DIABETES-FOOT EXAM 01/14/2022 01/14/2021, 0 11/07/2019, 01/01/2019, Additional history exists CKD PHOS USE SMARTSET 06159 03/12/202202/24, 11/17/2020, 12/24/2019, Additional history exists DIABETES-URINE MICROALBUMIN EVERY 12 MONTHS 03/12/2022 03/12/2021, 03/12/2021, 12/24/2019, Additional history exists CKD HGB USE SMARTSET 25391 03/20/202203/20, 03/20/2021, 03/12/2021, Additional history exists DIABETES-EYE [...] Documents on File Type Date Recorded Patient Private Branch Exchange Installer Expl 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 Camp Other Health Care Hayden r of Substation Technician Princess Allen Other Health Care Pow er of Substation Technician
--- OUTSIDE RECORDS SUMMARY | 2023-06-01 04:58 | External Medical Summary | Summary of Care ---
Author Name Unknown Organization [place] [address] Care Team Providers Care Senior Sales 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 Name Role Phone Kevin Whiteside DO Primary Care Provider Reason for Visit * Reason Comments [facility]: Maintenance Encounter Details Date Type Department Care Team Description 06/16/2021 Home Visit [facility], [facility] [address] [facility] [place] [address] Vera Capellan RN 132 [facility] [place] [address] [phone] Benign hypertensive heart and kidney disease with [...] as of this encounter (statuses as of 06/16/2021) Medications Medication Sig Dispensed Refills Start Date [...] 0 04/08/2020 Active Blood Glucose Monitoring Suppl (LumiGrowTOUCH ULTRA 2) w/Device KIT Use to test [...] goal of 7.0%-8.0% ([facility]) Inject 60 Units under the skin daily. [...] CPAP every night at bedtime. 0 Active documented as of this encounter (statuses as of 06/16/2021) Active Problems Problem Noted Date Hypotension 12/19/2020 [...] 10/14/2014 Overview: ICD-10 update of inactive term [place] filter in place 08/19/2014 History of pulmonary embolus (PE) 2013 Statin intolerance 07/16/2014 HTN, goal below 130/80 02/22/2014 Venous insufficiency 02/07/2013 ELISSA (obstructive sleep apnea) 09/16/2011 Overview: CPAP 11 cwp Mild, AHI 11.3 but with significant nocturnal hypoxemia Dicks Postsurgical hypothyroidism 06/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 documented as of this encounter (statuses as of 06/16/2021) Resolved Problems Problem Noted Date Resolved Date [...] as of this encounter (statuses as of 06/16/2021) Immunizations Name Administration Dates Next Due COVID-19 [...] Reading Time Taken Comments Blood Pressure 100/60 06/16/2021 9:44 AM EDT Pulse 88 06/16/2021 9:44 AM EDT Temperature 36.2 C (97.1 F) 06/16/2021 9:44 AM ED T Respiratory Rate 18 06/16/2021 9:44 AM EDT Oxygen Saturation 96% 06/16/2021 9:44 AM EDT Inhaled Oxygen Concentration - - Weight - - Height - - Body Mass Index - - documented in this encounter Progress Notes * Vera Capellan, RN - 06/16/2021 7:43 AM EDT [facility] Skin Installer Visit Date: 06/16/2021 Time: 9:43 AM Name: Stephanie Camp : 1955 Current Concerns: Pt seen for return RNCM visit Has been attending outpatient PT at [facility] Blood sugars have been ranging high 100's to low 200's Blood sugar was 156 this am She states they have improved some and has not had any issues with highs or lows Pt reports that dizziness has improved - "sometimes" has dizziness but not as frequent or severe asin past Denies any falls Denies any concerns today Physical Exam: BP 100/60 | Pulse 88 | Temp 36.2 C (97.1 F) | Resp 18 | LMP 03/11/2003 | SpO2 96% Pain 0 Physical Exam Constitutional: Appearance: She is obese. HENT: Nose: Nose normal. Cardiovascular: Pulses: Normal pulses. Heart sounds: Normal heart [...] Content: Thought content normal. Judgment: Judgment normal. Problems/Symptoms: Review of Systems Constitutional: Negative. HENT: Negative. Eyes: Negative. Respiratory: Positive for shortness of breath (AVENDAÑO - at baseline). Cardiovascular: Positive for leg swelling. Gastrointestinal: Negative. Endocrine: Negative. Genitourinary: Negative. Musculoskeletal: Positive for arthralgias and back pain. Skin: Negative. Neurological: Positive for dizziness ("sometimes"). Psychiatric/Behavioral: Negative. Medication Reconciliation: (See medication list) Does patient take medications as ordered: Yes Patient Well Being: PHQ2/9: No questionnaires available. No change in living situation Denies any recent falls Continues to see psychologist for depression - no concerns at this time Advanced Care Planning: POLST. Patient's Goals of [...] regimen. Timing., Dosing. and Purspose. Treatment/Plan: Continue all medications as ordered Ambulate with roller walker at ALL times Change position slowly o2 2lncqhs and day prn cpap with 2l qhs Apapand topical pain relievers for pain Can also take flexeril prn back pain No NSAIDS Low na, ccd diet, 1.5L fluid restriction Ck bsgs and record tid- followed by [facility] clinic Wear b/l le support hose-on day/off night Per cardio - may take additional Lasix for 2-3 days for increased edema if needed SW involved for psychosocial support Meclizine prn for vertigo Zofran prn nausea Outpatient PTat [facility] for allergie symptoms Do not take Benadryl - may take Claritin for allergies Home Interventions Provided: Home Intervention: Other; Evaluation Reinforced current Plan of Care, including self-management and medication regimen Patient's 'Red Flags': 1. Increased SOB 2. Increased dizziness 3. Increased edema Patient Needs to Remember: Call [facility] at with any new or worsening health concerns or problems, red flag symptoms. Referrals Needed: Other none Follow Up: Patient encouraged to call the intake phone number for all urgent but not emergent issues. Is the patient new to [facility] within the last 30 days? No, Assess appropriateness for upcoming telehealth visits. Cancel telehealth visits & schedule home visit with care steamship agent(s)as indicated. Provider is in agreement with Plan of Care: Yes Scheduled to follow up with patient in 3 weeks with LES and 3 weeks after with RNCM. Vera Capellan RN 06/16/2021 9:43 AM documented in this encounter Plan of Treatment Upcoming Encounters Date Type Specialty Care Team Description 07/01/2021 Home Visit [facility] Rema Real, PATIENT RESOURCE SPECIALIST [facility] [address] [phone] 07/07/2021 Home Visit Family Medicine Magaly Morales, Community Health Data Visualization Developer [address] [place] [address] [phone] 07/20/2021 Office Visit Pharmacy Orlin Tnailyn Bobo 132 [facility] [place] [address] 07/20/2021 Office Visit Family Medicine Kevin Whiteside DO 132 [facility] [place] [address] [phone] 07/28/2021 Home Visit [facility] Vera Capellan RN 132 [facility] [place] [address] [phone] 08/18/2021 Office Visit Sleep Disorders Celsa Tafoya CRNP [address] [facility] [place] [address] [phone] 10/05/2021 Office Visit Cardiology Rey Woodall MD 132 [facility] [place] [address] [phone] Health Maintenance Due Date Last Done Comments Pneumococcal Vaccine: 65+ Years (2 of 2 - PPSV23) 2020 08/22/2009, 06/15/2006 DIABETES-HGBA1C EVERY 6 MONTHS 05/17/2021 11/17/2020, 01/23/2020, 11/07/2019, Additional history exists Influenza Vaccine (FLU shot) (#1) 2021 06/13/2020, 07/23/2019, 06/12/2018, Additional history exists CKD GFR USE SMARTSET 07428 09/19/202103/20, 03/12/2021, 12/25/2020, Additional history exists BREAST CANCER SCREENING DISCUSSION YEARLY AGES 40-75 10/01/2021 10/01/2020, 07/10/2019, 06/23/2018, Additional history exists DIABETES-FOOT EXAM 01/14/2022 01/14/2021, 0 11/07/2019, 01/01/2019, Additional history exists CKD PHOS USE SMARTSET 97292 03/12/202202/24, 11/17/2020, 12/24/2019, Additional history exists DIABETES-URINE MICROALBUMIN EVERY 12 MONTHS 03/12/2022 03/12/2021, 03/12/2021, 12/24/2019, Additional history exists CKD HGB USE SMARTSET 56220 03/20/202203/20, 03/20/2021, 03/12/2021, Additional history exists DIABETES-EYE [...] on File Type Date Recorded Patient Rn Integrity Expl 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 Camp Other Health Care Hayden r of Film Editor Supervisor [phone] ([place]) Princess Allen Other Health Care Pow er of Film Editor Supervisor
--- OUTSIDE RECORDS SUMMARY | 2023-06-01 04:58 | External Medical Summary | Summary of Care ---
Author Name Unknown Organization [facility] Address [place] [address] Care Team Providers Care Ginger Farmer Name Role Phone Kevin Whiteside DO Primary Care Provider Reason for Visit * Reason Onset Date Comments [facility]: Maintenance 06/12/2021 Encounter Details Date Type Department Care Team Description 06/12/2021 Scheduled Telephone [facility], [facility] [address] [place] [address] Coordinator, [facility] [address] [place] [address] [phone] Allergies Active Allergy Reactions Severity Noted Date Comments Codeine 07/08/2014 hallucination Pollen 05/18/2019 Heparin 09/04/2009 Heparin Induced Thrombocytopenia Hydrocodone Neuro complications (Please comment) 07/28/2020 Empagliflozin Other (Please comment) Medium 05/17/2018 3 yeast infections in 6 weeks after starting Morphine And Related 09/16/1997 Hallucinations Tetanus Toxoid Other (Please comment) 06/15/2011 Passed out documented as of this encounter (statuses as of 06/12/2021) Medications Medication Sig Dispensed Refills Start Date [...] 0 04/08/2020 Active Blood Glucose Monitoring Suppl (AvingerUCH ULTRA 2) w/Device KIT Use to test [...] 7.0%-8.0% ([facility]) TAKE ONE CAPSULE BY MOUTH THREE TIMES [...] ([facility]) Inject 3 mg under the [...] as of this encounter (statuses as of 06/12/2021) Active Problems Problem Noted Date Hypotension 12/19/2020 [...] 10/14/2014 Overview: ICD-10 update of inactive term [place] filter in place 08/19/2014 History of pulmonary embolus (PE) 2013 Statin intolerance 07/16/2014 HTN, goal below 130/80 02/22/2014 Venous insufficiency 02/07/2013 ELISSA (obstructive sleep apnea) 09/16/2011 Overview: CPAP 11 cwp Mild, AHI 11.3 but with significant nocturnal hypoxemia Dicks Postsurgical hypothyroidism 06/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 documented as of this encounter (statuses as of 06/12/2021) Resolved Problems Problem Noted Date Resolved Date [...] as of this encounter (statuses as of 06/12/2021) Immunizations Name Administration Dates Next Due COVID-19 mRNA, LNP-s, No Pre serve, 2-Dose Series ([employer]) 12/29/2020,12/18/2020 Pneumococcal Polysaccharide PPV23 (Pneumovax) 08/22/2009,06/15/2006 Seasonal [...] encounter Miscellaneous Notes * Telephone Encounter - Vera Capellan RN - 06/12/2021 9:55 AM EDT TC to pt for f/u on low O2 sats during therapy and elevated HR. Pt states she went to therapy yesterday at [facility] and no concerns. She reports her oxygen level did go down to 88% with exercising but returned to high 90's after rest. Denies any elevated HR. She states she is feeling fine this am and has no concerns. Aware of HV on 06/16. Encouraged to call [facility] if any needs or concerns arise. documented in this encounter Plan of Treatment Upcoming Encounters Date Type Specialty Care Team Description 06/16/2021 Home Visit [facility] Vera Capellan RN [address] [place] [address] [phone] 07/01/2021 Home Visit [facility] Rema Real LSW [address] [place] [address] [phone] 07/07/2021 Home Visit Family Medicine Magaly Morales, Community Health Deposit Refund Clerk [address] [place] [address] [phone] 07/20/2021 Office Visit Pharmacy Danuta Ordaz [address] [place] [address] 07/20/2021 Office Visit Family Medicine Kevin Whiteside DO [address] [place] [address] [phone] 08/18/2021 Office Visit Sleep Disorders Celsa Tafoya CRNP [address] [place] [address] [phone] 10/05/2021 Office Visit Cardiology Rey Woodall MD [address] [place] [address] [phone] Health Maintenance Due Date Last Done Comments Pneumococcal Vaccine: 65+ Years (2 of 2 - PPSV23) 2020 08/22/2009, 06/15/2006 DIABETES-HGBA1C EVERY 6 MONTHS 05/17/2021 11/17/2020, 01/23/2020, 11/07/2019, Additional history exists Influenza Vaccine (FLU shot) (#1) 2021 06/13/2020, 07/23/2019, 06/12/2018, Additional history exists CKD GFR USE SMARTSET 21091 09/19/202103/20, 03/12/2021, 12/25/2020, Additional history exists BREAST CANCER SCREENING DISCUSSION YEARLY AGES 40-75 10/01/2021 10/01/2020, 07/10/2019, 06/23/2018, Additional history exists DIABETES-FOOT EXAM 01/14/2022 01/14/2021, 0 11/07/2019, 01/01/2019, Additional history exists CKD PHOS USE SMARTSET 85283 03/12/202202/24, 11/17/2020, 12/24/2019, Additional history exists DIABETES-URINE MICROALBUMIN EVERY 12 MONTHS 03/12/2022 03/12/2021, 03/12/2021, 12/24/2019, Additional history exists CKD HGB USE SMARTSET 25968 03/20/202203/20, 03/20/2021, 03/12/2021, Additional history exists DIABETES-EYE [...] Documents on File Type Date Recorded Patient Appeals Specialist Expl 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 Camp Other Health Care Hayden r of Accreditation Manager Princess Allen Other Health Care Pow er of Accreditation Manager
--- OUTSIDE RECORDS SUMMARY | 2023-06-01 04:58 | External Medical Summary | Summary of Care ---
Author Name Unknown Organization [facility] Address [place] [address] Care Team Providers Care Vocational Education Teacher Name Role Phone Kevin Whiteside DO Primary Care Provider Reason for Visit * Reason Onset Date Comments [facility]: Maintenance 07/03/2021 Encounter Details Date Type Department Care Team Description 07/03/2021 Telephone [facility], [facility] [address] [place] [address] Rema Real LSW [address] [place] [address] [phone] [facility]: Maintenance Allergies Active Allergy Reactions Severity Noted Date Comments Codeine 07/08/2014 hallucination Pollen 05/18/2019 Heparin 09/04/2009 Heparin Induced Thrombocytopenia Hydrocodone Neuro complications (Please comment) 07/28/2020 Empagliflozin Other (Please comment) Medium 05/17/2018 3 yeast infections in 6 weeks after starting Morphine And Related 09/16/1997 Hallucinations Tetanus Toxoid Other (Please comment) 06/15/2011 Passed out documented as of this encounter (statuses as of 07/03/2021) Medications Medication Sig Dispensed Refills Start Date [...] 0 04/08/2020 Active Blood Glucose Monitoring Suppl ([employer] Education ULTRA 2) w/Device KIT Use to test [...] 7.0%-8.0% ([facility]) Inject 3 mg under the [...] as of this encounter (statuses as of 07/03/2021) Active Problems Problem Noted Date Hypotension 12/19/2020 [...] 10/14/2014 Overview: ICD-10 update of inactive term [place] filter in place 08/19/2014 History of pulmonary embolus (PE) 2013 Statin intolerance 07/16/2014 HTN, goal below 130/80 02/22/2014 Venous insufficiency 02/07/2013 ELISSA (obstructive sleep apnea) 09/16/2011 Overview: CPAP 11 cwp Mild, AHI 11.3 but with significant nocturnal hypoxemia Dicks Postsurgical hypothyroidism 06/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 documented as of this encounter (statuses as of 07/03/2021) Resolved Problems Problem Noted Date Resolved Date [...] as of this encounter (statuses as of 07/03/2021) Immunizations Name Administration Dates Next Due COVID-19 mRNA, LNP-s, No Pre serve, 2-Dose Series ([employer]) 12/29/2020,12/18/2020 Pneumococcal Polysaccharide PPV23 (Pneumovax) 08/22/2009,06/15/2006 Seasonal [...] encounter Miscellaneous Notes * Telephone Encounter - Rema Real LSW - 07/03/2021 8:52 AM EDT S-SW rec'd call from Stephanie last week cancelling our appointment for 07/01/2021. STEFANY called this dateto reschedule. Left message for Stephanie to call STEFANY. O-telephone encounter A-Will scheduled follow up call if do not hear by end of day. P-Will scheduled follow up call if do not hear by end of day. documented in this encounter Plan of Treatment Upcoming Encounters Date Type Specialty Care Team Description 07/07/2021 Home Visit Family Medicine Magaly Morales, Community Health Fabrication Manager [address] [place] [address] [phone] 07/20/2021 Office Visit Pharmacy [facility] [address] [place] [address] 07/20/2021 Office Visit Family Medicine Kevin Whiteside DO [address] [place] [address] [phone] 07/28/2021 Home Visit [facility] Vera Capellan RN [address] [place] [address] [phone] 08/18/2021 Office Visit Sleep Disorders Celsa Tafoya CRNP [address] [place] [address] [phone] 10/05/2021 Office Visit Cardiology Rey Woodall MD [address] [place] [address] Health Maintenance Due Date Last Done Comments Pneumococcal Vaccine: 65+ Years (2 of 2 - PPSV23) 2020 08/22/2009, 06/15/2006 DIABETES-HGBA1C EVERY 6 MONTHS 05/17/2021 11/17/2020, 01/23/2020, 11/07/2019, Additional history exists Influenza Vaccine (FLU shot) (#1) 2021 06/13/2020, 07/23/2019, 06/12/2018, Additional history exists CKD GFR USE SMARTSET 31215 09/19/202103/20, 03/12/2021, 12/25/2020, Additional history exists BREAST CANCER SCREENING DISCUSSION YEARLY AGES 40-75 10/01/2021 10/01/2020, 07/10/2019, 06/23/2018, Additional history exists DIABETES-FOOT EXAM 01/14/2022 01/14/2021, 0 11/07/2019, 01/01/2019, Additional history exists CKD PHOS USE SMARTSET 16541 03/12/202202/24, 11/17/2020, 12/24/2019, Additional history exists DIABETES-URINE MICROALBUMIN EVERY 12 MONTHS 03/12/2022 03/12/2021, 03/12/2021, 12/24/2019, Additional history exists CKD HGB USE SMARTSET 10616 03/20/202203/20, 03/20/2021, 03/12/2021, Additional history exists DIABETES-EYE [...] Documents on File Type Date Recorded Patient Wellfield Technician Expl 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 Camp Other Health Care [place] r of Certified Recreational Therapist Princess Allen Other Health Care Pow er of Certified Recreational Therapist
--- OUTSIDE RECORDS SUMMARY | 2023-06-01 04:58 | External Medical Summary | Summary of Care ---
Author Name Unknown Organization [place] [address] Care Team Providers Care Dental Laboratory Manager Name Role Phone Migue Whiteside DO Primary Care Provider Reason for Visit * Reason Onset Date Comments Medication Refill 06/15/2021 Encounter Details Date Type Department Care Team Description 06/15/2021 Refill [facility] [address] [place] [address] [...] 0 04/08/2020 Active Blood Glucose Monitoring Suppl ([facility] ULTRA 2) w/Device KIT Use to test [...] goal of 7.0%-8.0% ([facility]) Inject 60 Units under the [...] 02/24/2021 Active Gabapentin 300 MG Oral Capsule (Neurontin)Indicati ons:Type 2 diabetes mellitus with hemoglobin A1c goal of 7.0%-8.0% ([facility]) TAKE ONE CAPSULE BY MOUTH THREE TIMES DAILY 270 Cap 3 02/24/2021 Active Additional Information Patient taking differently: 300 mg Oral BID, Reported on 04/15/2021 Cyclobenzaprine HCl 10 MG Oral Tablet (Flexeril)Indicatio [...] a day. 60 Tab 0 06/16/2021 Active clonazePAM 0.5 MG Oral Tablet (KlonoPIN)Indicatio ns:Anxiety state Take 1 Tab by mouth 2 times a day. 60 Tab 0 05/19/2021 1 Discontinue d(Refill) documented as of this [...] mRNA, LNP-s, No Pre serve, 2-Dose Series ([employer]) 12/29/2020,12/18/2020 Pneumococcal Polysaccharide PPV23 (Pneumovax) 08/22/2009,06/15/2006 Seasonal [...] Telephone Encounter - Migue Whiteside DO - 06/16/2021 1:03 PM EDT Signed Prescriptions: Disp Refills clonazePAM 0.5 MG Oral Tablet (KlonoPIN) 60 Tab 0 Sig: Take 1 Tab by mouth 2 times a day. Authorizing Provider: MIGUE WHITESIDE * Telephone Encounter - Mattie Hilario LPN - 06/15/2021 3:56 PM EDT Pending Prescriptions: Disp Refills clonazePAM 0.5 MG Oral Tablet (KlonoPIN) 60 Tab 0 Sig: Take 1 Tab by mouth 2 times a day. documented in this encounter Plan of Treatment Upcoming Encounters Date Type Specialty Care Team Description 07/01/2021 Home Visit [facility] Rema Real LSW 132 [facility] [place] [address] [phone] 07/07/2021 Home Visit Family Medicine Magaly Morales, Community Health Mobility Developer [address] [place] [facility] [place] [address] [phone] 07/20/2021 Office Visit Pharmacy [facility] [place] [address] [place] [address] 07/20/2021 Office Visit Family Medicine Migue Whiteside DO [address] [place] [address] [phone] 07/28/2021 Home Visit [facility]an [facility] [place] [address] [phone] 08/18/2021 Office Visit Sleep Disorders Celsa Tafoya CRNP [facility] [place] [address] [phone] 10/05/2021 Office Visit Cardiology Rey Woodall MD [address] [place] [address] [phone] Health Maintenance Due Date Last Done Comments Pneumococcal Vaccine: 65+ Years (2 of 2 - PPSV23) 2020 08/22/2009, 06/15/2006 DIABETES-HGBA1C EVERY 6 MONTHS 05/17/2021 11/17/2020, 01/23/2020, 11/07/2019, Additional history exists Influenza Vaccine (FLU shot) (#1) 2021 06/13/2020, 07/23/2019, 06/12/2018, Additional history exists CKD GFR USE SMARTSET 91097 09/19/202103/20, 03/12/2021, 12/25/2020, Additional history exists BREAST CANCER SCREENING DISCUSSION YEARLY AGES 40-75 10/01/2021 10/01/2020, 07/10/2019, 06/23/2018, Additional history exists DIABETES-FOOT EXAM 01/14/2022 01/14/2021, 0 11/07/2019, 01/01/2019, Additional history exists CKD PHOS USE SMARTSET 61349 03/12/202202/24, 11/17/2020, 12/24/2019, Additional history exists DIABETES-URINE MICROALBUMIN EVERY 12 MONTHS 03/12/2022 03/12/2021, 03/12/2021, 12/24/2019, Additional history exists CKD HGB USE SMARTSET 61032 03/20/202203/20, 03/20/2021, 03/12/2021, Additional history exists DIABETES-EYE [...] Documents on File Type Date Recorded Patient Commercial Account Executive Expl 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 Other Health Care [place] r of Electrical Engineering Intern Princess Allen Other Health Care Pow er of Electrical Engineering Intern
--- OUTSIDE RECORDS SUMMARY | 2023-06-01 04:58 | External Medical Summary | Summary of Care ---
Author Name Unknown Organization [place] [address] Care Team Providers Care Skeet Operator Name Role Phone Kevin Whiteside DO Primary Care Provider Reason for Visit * Reason Comments [facility]: Acute acute Encounter Details Date Type Department Care Team Description 06/09/2021 Home Visit [facility], [facility] [address] [facility] [place] [address] Kriss Ferris, RN [address] [facility] [place] [address] [phone] Allergies Active Allergy Reactions Severity Noted Date Comments Codeine 07/08/2014 hallucination Pollen 05/18/2019 Heparin 09/04/2009 Heparin Induced Thrombocytopenia Hydrocodone Neuro complications (Please comment) 07/28/2020 Empagliflozin Other (Please comment) Medium 05/17/2018 3 yeast infections in 6 weeks after starting Morphine And Related 09/16/1997 Hallucinations Tetanus Toxoid Other (Please comment) 06/15/2011 Passed out documented as of this encounter (statuses as of 06/09/2021) Medications Medication Sig Dispensed Refills Start Date [...] 0 04/08/2020 Active Blood Glucose Monitoring Suppl (CHEQROOMTOUCH ULTRA 2) w/Device KIT Use to test [...] 7.0%-8.0% ([facility]) Inject 60 Units under [...] of 7.0%-8.0% ([facility]) TAKE ONE CAPSULE BY MOUTH [...] 7.0%-8.0% ([facility]) Inject 3 mg under [...] as of this encounter (statuses as of 06/09/2021) Active Problems Problem Noted Date Hypotension 12/19/2020 [...] as of this encounter (statuses as of 06/09/2021) Resolved Problems Problem Noted Date Resolved Date [...] as of this encounter (statuses as of 06/09/2021) Immunizations Name Administration Dates Next Due COVID-19 mRNA, LNP-s, No Pre serve, 2-Dose Series ([employer]) 12/29/2020,12/18/2020 Pneumococcal Polysaccharide PPV23 (Pneumovax) 08/22/2009,06/15/2006 Seasonal [...] Sign Reading Time Taken Comments Blood Pressure 132/59 06/09/2021 1:10 PM EDT Pulse 92 06/09/2021 1:10 PM EDT Temperature 36.1 C (97 F) 06/09/2021 1:10 PM EDT Respiratory Rate 18 06/09/2021 1:10 PM EDT Oxygen Saturation 96% 06/09/2021 1:10 PM EDT Inhaled Oxygen Concentration - - Weight - - Height - - Body Mass Index - - documented in this encounter Progress Notes * Kriss Ferris, LEXI - 06/09/2021 12:54 PM EDT [facility] Hand I CutterHeddler Visit Date: 06/09/2021 Time: 12:45 PM Name: Stephanie Camp : 1955 Current Concerns: Acute Wt today 335lbs- has not been weighing daily but did this am d/t feeling BLE increased edema Dry wt from February 2021 332lbs Pt plans to take increased lasix dose today as per note on med list: OK to take extra 20mg 2-3 dayswhen edematous 1+ pitting edema to tops of bilat feet, slightly into ankle Reports she requested this acute visit d/t low o2 and high HR at [facility] for PT- was to be there today but cancelled, last week last PT appt As per pt, they cut her time down d/t low o2 while on 2lo2 via NC- she denies feeling increased shortness of breath at any time, but during PT HR is elevated and she feels that slightly Plan: Go to OP PT @ [facility] , wear 2lo2 via NC If o2 again goes lower than 89% on 2lo2 (she reports lowest recently is 88%) rest and OK to call [facility] to report following PT Also can speak to [facility] about sending their documentation of this to PCP Reinforced that resting, deep breathing through nose, out mouth while o2 in place and resting As per pt highest HR during activity at [facility] 100BPM, no CP Reinforced WNL o2 and HR during activity- she verbalizes understanding Problems/Symptoms: Review of Systems Constitutional: Negative for activity change, appetite change, chills, fatigue and fever. HENT: Negative for congestion and hearing loss. Eyes: Negative. Respiratory: Positive for shortness of breath (With moderate exertion, relieved with rest. Denies feeling short of breath at PT when o2 roughly 88%). Negative for cough. Cardiovascular: Positive for leg swelling (Trace to top of bilat feet.). Negative for palpitations. Gastrointestinal: Negative for abdominal distention, abdominal pain, constipation, diarrhea, nauseaand vomiting. Endocrine: Denies s/s of hypo/hyperglycemia Genitourinary: Negative for frequency and urgency. Musculoskeletal: Positive for gait problem. Skin: Negative. Allergic/Immunologic: Negative. Neurological: Positive for dizziness (Occasionally, did feel slightly dizzy this am. Relieved currently.), weakness (Generalized, at baseline currently.), numbness (Chronic bilat feet.) and headaches([place] headache this am. Currently denies.). Negative for light-headedness. Psychiatric/Behavioral: Negative. Physical Exam: BP 132/59 (BP Site: Left Arm, BP Position: Sitting, BP Cuff Size: Regular) | Pulse 92 | Temp 36.1 C (97 F) (Tympanic) | Resp 18 | LMP 03/11/2003 | SpO2 96% Pain 4 Physical Exam Constitutional: Appearance: She is obese. HENT: Mouth/Throat: Mouth: Mucous membranes are moist. Cardiovascular: Rate and Rhythm: Normal rate and regular rhythm. Heart sounds: Normal heart sounds. Pulmonary: Effort: Pulmonary effort is normal. Breath sounds: Normal breath sounds. Comments: Lung sounds are slightly decreased throughout with movement noted. Abdominal: Palpations: Abdomen is soft. Skin: General: Skin is warm and dry. Neurological: Mental Status: She is alert and oriented to person, place, and time. Treatment/Plan: Wear o2 when short of breath, or o2 on room air <89% At PT- if o2 low, apply 2lo2 via NC If still low, rest and deep breathe If o2 low or [facility] PT has concerns- request they call [facility] or PCP office Raise slowly from seated position to standing to prevent dizziness Home Interventions Provided: Reinforced current Plan of Care, including self-management and medication regimen Patient's 'Red Flags': 1. Fall with injury 2. Wt gain 3lbs in one night, 5lbs in one week or increased edema 3. o2 <89% on 2lo2 via nasal cannula Referrals Needed: Other none Follow Up: Patient encouraged to call the intake phone number for all urgent but not emergent issues. Scheduled to follow up with patient in 24hr hr via TC. Kriss Ferris RN 06/09/2021 12:45 PM documented in this encounter Plan of Treatment Upcoming Encounters Date Type Specialty Care Team Description 06/10/2021 Scheduled Telephone [facility], [facility] [address] [place] [address] [phone] 06/12/2021 Scheduled Telephone [facility] Machine [facility], [facility] [address] [place] [address] [phone] 06/16/2021 Home Visit [facility] Vera Capellan RN [address] [place] [address] [phone] 07/01/2021 Home Visit [facility] Rema Real LSW [address] [place] [address] [phone] 07/07/2021 Home Visit Family Medicine Magaly Morales, Community Health Wallpaperer [address] [place] [address] 07/20/2021 Office Visit Pharmacy [facility] [place] [address] [place] [address] 07/20/2021 Office Visit Family Medicine Kevin Whiteside DO [address] [place] [address] [phone] 08/18/2021 Office Visit Sleep Disorders Celsa Tafoya CRNP [address] [place] [address] [phone] 10/05/2021 Office Visit Cardiology Rey Woodall MD [address] [place] [address] [phone] Health Maintenance Due Date Last Done Comments Pneumococcal Vaccine: 65+ Years (2 of 2 - PPSV23) 2020 08/22/2009, 06/15/2006 DIABETES-HGBA1C EVERY 6 MONTHS 05/17/2021 11/17/2020, 01/23/2020, 11/07/2019, Additional history exists Influenza Vaccine (FLU shot) (#1) 2021 06/13/2020, 07/23/2019, 06/12/2018, Additional history exists CKD GFR USE SMARTSET 76128 09/19/202103/20, 03/12/2021, 12/25/2020, Additional history exists BREAST CANCER SCREENING DISCUSSION YEARLY AGES 40-75 10/01/2021 10/01/2020, 07/10/2019, 06/23/2018, Additional history exists DIABETES-FOOT EXAM 01/14/2022 01/14/2021, 0 11/07/2019, 01/01/2019, Additional history exists CKD PHOS USE SMARTSET 99034 03/12/202202/24, 11/17/2020, 12/24/2019, Additional history exists DIABETES-URINE MICROALBUMIN EVERY 12 MONTHS 03/12/2022 03/12/2021, 03/12/2021, 12/24/2019, Additional history exists CKD HGB USE SMARTSET 21959 03/20/202203/20, 03/20/2021, 03/12/2021, Additional history exists DIABETES-EYE [...] File Type Date Recorded Patient Entry Level Software Developer Expl 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 Other Health Care Hayden r of Chief Nurse Princess Allen Other Health Care Pow er of Chief Nurse "
--- OUTSIDE RECORDS SUMMARY | 2023-06-01 04:58 | External Medical Summary | Summary of Care ---
Author Name Unknown Organization [facility] Address [facility] [place] [address] Care Team Providers Care Health Outcomes Liaison Name Role Phone Kevin Whiteside DO Primary Care Provider Reason for Visit * Reason Onset Date Comments [facility]: Maintenance 06/09/2021 Encounter Details Date Type Department Care Team Description 06/09/2021 Telephone [facility], [facility] [address] [facility] [place] [id number] [facility], Nurse [facility] [address] [facility] [place] [id number] [facility]: Maintenance Allergies Active Allergy [...] 0 04/08/2020 Active Blood Glucose Monitoring Suppl (BitPass ULTRA 2) w/Device KIT Use to test [...] of 7.0%-8.0% ([facility]) TAKE ONE CAPSULE BY MOUTH [...] 7.0%-8.0% ([facility]) Inject 3 mg under the [...] mRNA, LNP-s, No Pre serve, 2-Dose Series ([employer]) 12/29/2020,12/18/2020 Pneumococcal Polysaccharide PPV23 (Pneumovax) 08/22/2009,06/15/2006 Seasonal [...] Telephone Encounter - Maris Mariscal RN - 06/09/2021 9:39 AM EDT TT message received from Triage nurse. Requesting a home visit today by [facility] nurse to eval pt for increased SOB and tachycardia. appt scheduled with Kriss Barton RN for this am. Call placed to the pt to make aware of appt time. Pt agreeable to appt today at noon. documented in this encounter Plan of Treatment Upcoming Encounters Date Type Specialty Care Team Description 06/09/2021 Home Visit [facility] Kriss Ferris RN [address] [place] [address] [phone] 06/16/2021 Home Visit [facility] Vera Capellan RN [address] [place] [address] [phone] 07/01/2021 Home Visit [facility] Rema Real LSW [address] [place] [address] [phone] 07/07/2021 Home Visit Family Medicine Magaly Morales, Community Health Budget Director [address] [facility] [place] [address] 07/20/2021 Office Visit Pharmacy [facility] [place] [address] [place] [address] 07/20/2021 Office Visit Family Medicine Kevin Whiteside DO [address] [place] [address] [phone] 08/18/2021 Office Visit Sleep Disorders Celsa Tafoya CRNP [address] [place] [address] [phone] 10/05/2021 Office Visit Cardiology Rey Woodall MD [address] [place] [address] Health Maintenance Due Date Last Done Comments Pneumococcal Vaccine: 65+ Years (2 of 2 - PPSV23) 2020 08/22/2009, 06/15/2006 DIABETES-HGBA1C EVERY 6 MONTHS 05/17/2021 11/17/2020, 01/23/2020, 11/07/2019, Additional history exists Influenza Vaccine (FLU shot) (#1) 2021 06/13/2020, 07/23/2019, 06/12/2018, Additional history exists CKD GFR USE SMARTSET 14539 09/19/202103/20, 03/12/2021, 12/25/2020, Additional history exists BREAST CANCER SCREENING DISCUSSION YEARLY AGES 40-75 10/01/2021 10/01/2020, 07/10/2019, 06/23/2018, Additional history exists DIABETES-FOOT EXAM 01/14/2022 01/14/2021, 0 11/07/2019, 01/01/2019, Additional history exists CKD PHOS USE SMARTSET 85664 03/12/202202/24, 11/17/2020, 12/24/2019, Additional history exists DIABETES-URINE MICROALBUMIN EVERY 12 MONTHS 03/12/2022 03/12/2021, 03/12/2021, 12/24/2019, Additional history exists CKD HGB USE SMARTSET 39561 03/20/202203/20, 03/20/2021, 03/12/2021, Additional history exists DIABETES-EYE [...] Documents on File Type Date Recorded Patient Glaze Handler Expl 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 Camp Other Health Care Hayden r of Seismograph Observer Princess Allen Other Health Care Pow er of Seismograph Observer
--- OUTSIDE RECORDS SUMMARY | 2023-06-01 04:59 | External Medical Summary | Summary of Care ---
Author Name Unknown Organization [place] [address] Care Team Providers Care Enrollment Advisor Name Role Phone Migue Whiteside DO Primary Care Provider Reason for Visit * Reason Onset Date Comments Medication Refill 04/24/2021 Encounter Details Date Type Department Care Team Description 04/24/2021 Refill [facility] [address] [place] [address] Migue Whiteside DO [address] [place] [address] POSTSURGICAL HYPOTHYROID; Chronic pain syndrome Allergies Active Allergy Reactions Severity Noted Date Comments Codeine 07/08/2014 hallucination Pollen 05/18/2019 Heparin 09/04/2009 Heparin Induced Thrombocytopenia Hydrocodone Neuro complications (Please comment) 07/28/2020 Empagliflozin Other (Please comment) Medium 05/17/2018 3 yeast infections in 6 weeks after starting Morphine And Related 09/16/1997 Hallucinations Tetanus Toxoid Other (Please comment) 06/15/2011 Passed out documented as of this encounter (statuses as of 04/27/2021) Medications Medication Sig Dispensed Refills Start Date [...] 0 04/08/2020 Active Blood Glucose Monitoring Suppl (Vidable ULTRA 2) w/Device KIT Use to test [...] > 150. 121 mL 3 03/20/2021 Active clonazePAM 0.5 MG Oral Tablet (KlonoPIN)Indicatio ns:Anxiety state Take 1 Tab by mouth 2 times a day. 60 Tab 0 04/14/2021 Active Furosemide 40 MG Oral Tablet (Lasix)Indications: [...] Pain, Severe. 90 Tab 0 04/27/2021 Active Levothyroxine Sodium 200 MCG Oral Tablet (LEVOXYL)Indication s:Postsurgical hypothyroidism TAKE ONE TABLET BY MOUTH IN THE MORNING AT LEAST 30 MINUTES PRIOR TO BREAKFAST OR OTHER MEDS 90 Tab 1 09/20/2020 1 Discontinue d(Refill) DULoxetine HCl 30 MG Oral Capsule Delayed Release Particles (CYMBALTA) TAKE ONE CAPSULE BY MOUTH DAILY. take with 60mg capsule for total of 90mg 90 Cap 1 10/02/2020 1 Discontinue d(Refill) traMADol HCl 50 MG Oral Tablet (Ultram)Indications :Chronic pain syndrome Take 1 Tab by mouth every 8 hours as needed for Pain, Severe. 90 Tab 0 02/09/2021 1 Discontinue d(Refill) documented as of this encounter (statuses as of 04/27/2021) Active Problems Problem Noted Date Hypotension 12/19/2020 [...] as of this encounter (statuses as of 04/27/2021) Resolved Problems Problem Noted Date Resolved Date [...] as of this encounter (statuses as of 04/27/2021) Immunizations Name Administration Dates Next Due COVID-19 mRNA, LNP-s, No Pre serve, 2-Dose Series ([employer]) 12/29/2020,12/18/2020 Pneumococcal Polysaccharide PPV23 (Pneumovax) 08/22/2009,06/15/2006 Seasonal Influenza, Quadriva lent, No Preserve, 6 Mons & Above, IM 07/23/2019,06/12/2018,07/14/2017 Seasonal Influenza, Quadriva lent, No Preserve, Adjuvanted, 65+ Yrs, IM 06/13/2020 Seasonal Influenza, Quadriva erikat, No Preserve, IM 06/24/2016,07/24/2015 Seasonal Influenza, Split, [...] Telephone Encounter - Migue Whiteside DO - 04/27/2021 7:56 AM EDT Signed Prescriptions: Disp Refills Levothyroxine Sodium 200 MCG Oral Tablet (*90 Tab 1 Sig: TAKE ONE TABLET BY MOUTH IN THE MORNING AT LEAST 30 MINUTES PRIOR TO BREAKFAST OR OTHER MEDS Authorizing Provider: MIGUE WHITESIDE DULoxetine HCl 30 MG Oral Capsule Delayed *90 Cap 1 Sig: TAKE ONE CAPSULE BY MOUTH DAILY. take with 60mg capsule for total of 90mg Authorizing Provider: MIGUE WHITESIDE traMADol HCl 50 MG Oral Tablet (Ultram) 90 Tab 0 Sig: Take 1 Tab by mouth every 8 hours as needed for Pain, Severe. Authorizing Provider: MIGUE WHITESIDE * Telephone Encounter - Angi Balderrama LPN - 04/25/2021 9:13 AM EDT Pending Prescriptions: Disp Refills Levothyroxine Sodium 200 MCG Oral Tablet *90 Tab 1 Sig: TAKE ONE TABLET BY MOUTH IN THE MORNING AT LEAST 30 MINUTES PRIOR TO BREAKFAST OR OTHER MEDS DULoxetine HCl 30 MG Oral Capsule Delayed*90 Cap 1 Sig: TAKE ONE CAPSULE BY MOUTH DAILY. take with 60mg capsule for total of 90mg traMADol HCl 50 MG Oral Tablet (Ultr am) 90 Tab 0 Sig: Take 1 Tab by mouth every 8 hours as needed for Pain, Severe. * Telephone Encounter - Angi Balderrama LPN - 04/25/2021 9:13 AM EDT Pending Prescriptions: Disp Refills Levothyroxine Sodium 200 MCG Oral Tablet *90 Tab 1 Sig: TAKE ONE TABLET BY MOUTH IN THE MORNING AT LEAST 30 MINUTES PRIOR TO BREAKFAST OR OTHER MEDS DULoxetine HCl 30 MG Oral Capsule Delayed*90 Cap 1 Sig: TAKE ONE CAPSULE BY MOUTH DAILY. take with 60mg capsule for total of 90mg traMADol HCl 50 MG Oral Tablet (Ultram) 90 Tab 0 Sig: Take 1 Tab by mouth every 8 hours as needed for Pain, Severe. Last Office/Telemedicine Visit: 04/14/2021 Next Office Visit: 07/20/2021 Scheduled Provider(s): Migue Whiteside DO If no future appointments scheduled, and last appointment is greater than a year ago, please schedule patient for a follow-up appointment Last date the medication was ordered: Pharmacy: [id number] Is this request for a controlled substance?No [...] Encounters Date Type Specialty Care Team Description 04/29/2021 Home Visit [facility] Vera Capellan RN [address] [place] [address] [phone] 05/14/2021 Hospital Encounter Raj Dodson DO [address] [place] [address] [phone] 05/14/2021 Surgery Surgery CousinRaj travis, DO [address] [place] [address] [phone] INJECTION SPINE LUMBAR OR SACRAL 05/20/2021 Office Visit Pharmacy [facility] [place] [address] [place] [address] 05/26/2021 Home Visit Family Medicine Magaly Morales, Community Health Language Assistant [address] [place] [address] 05/27/2021 [facility]SW [facility] [place] [address] [phone] 07/20/2021 Office Visit Family Medicine Migue Whiteside, [address] [place] [address] [phone] 08/18/2021 Office Visit Sleep Disorders Celsa [facility]afoya CRNP [facility] [place] [address] [phone] 10/05/2021 Office Visit Cardiology Rey Woodall MD [address] [facility] [place] [address] [phone] Health Maintenance Due Date Last Done Comments Pneumococcal Vaccine: 65+ Years (2 of 2) 2020 08/22/2009, 06/15/2006 DIABETES-HGBA1C EVERY 6 MONTHS 05/17/2021 11/17/2020, 01/23/2020, 11/07/2019, Additional history exists Influenza Vaccine (FLU shot) (#1) 2021 06/13/2020, 07/23/2019, 06/12/2018, Additional history exists CKD GFR USE SMARTSET 22157 09/19/202103/20, 03/12/2021, 12/25/2020, Additional history exists BREAST CANCER SCREENING DISCUSSION YEARLY AGES 40-75 10/01/2021 10/01/2020, 07/10/2019, 06/23/2018, Additional history exists DIABETES-FOOT EXAM 01/14/2022 01/14/2021, 0 11/07/2019, 01/01/2019, Additional history exists CKD PHOS USE SMARTSET 22694 03/12/202202/24, 11/17/2020, 12/24/2019, Additional history exists DIABETES-URINE MICROALBUMIN EVERY 12 MONTHS 03/12/2022 03/12/2021, 03/12/2021, 12/24/2019, Additional history exists CKD HGB USE SMARTSET 98469 03/20/202203/20, 03/20/2021, 03/12/2021, Additional history exists DIABETES-EYE [...] as of this encounter Visit Diagnoses Diagnosis POSTSURGICAL HYPOTHYROID Postsurgical hypothyroidism Chronic pain syndrome Lumbar radiculopathy Thoracic or lumbosacral neuritis or radiculitis, unspecified documented in this encounter Advance Directives Documents on File Type Date Recorded Patient Deputy Sheriff Building Guard Expl 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 Camp Other Health Care Hayden r of Air Export Operations Agent Princess Allen Other Health Care Pow er of Air Export Operations Agent
--- OUTSIDE RECORDS SUMMARY | 2023-06-01 04:59 | External Medical Summary | Summary of Care ---
Author Name Unknown Organization [facility] Address [facility] [place] [address] Care Team Providers Care Director Nursing Service Name Role Phone Kevin Whiteside DO Primary Care Provider Reason for Visit * Reason Comments [facility]: Maintenance Encounter Details Date Type Department Care Team Description 04/17/2021 [facility] Visit [facility], [facility] [address] [place] [address] Rema Real LSW [address] [place] [address] [phone] Allergies Active Allergy Reactions Severity Noted Date Comments Codeine 07/08/2014 hallucination Pollen 05/18/2019 Heparin 09/04/2009 Heparin Induced Thrombocytopenia Hydrocodone Neuro complications (Please comment) 07/28/2020 Empagliflozin Other (Please comment) Medium 05/17/2018 3 yeast infections in 6 weeks after starting Morphine And Related 09/16/1997 Hallucinations Tetanus Toxoid Other (Please comment) 06/15/2011 Passed out documented as of this encounter (statuses as of 04/17/2021) Medications Medication Sig Dispensed Refills Start Date [...] 0 04/08/2020 Active Blood Glucose Monitoring Suppl (MasalaUCH ULTRA 2) w/Device KIT Use to test [...] mouth daily. 90 Tab 0 07/24/2020 Active Levothyroxine Sodium 200 MCG Oral Tablet (LEVOXYL)Indications: Postsurgical hypothyroidism TAKE ONE TABLET BY MOUTH IN THE MORNING AT LEAST 30 MINUTES PRIOR TO BREAKFAST OR OTHER MEDS 90 Tab 1 09/20/2020 Active DULoxetine HCl 30 MG Oral Capsule Delayed Release Particles (CYMBALTA) TAKE ONE CAPSULE BY MOUTH DAILY. take with 60mg capsule for total of 90mg 90 Cap 1 10/02/2020 Active DULoxetine HCl 60 MG Oral Capsule [...] skin daily. 45 mL 3 12/18/2020 Active Furosemide 40 MG Oral Tablet (Lasix)Indications:Ch ronic diastolic congestive heart failure (HCC) Take 0.5 Tabs by mouth 2 times a day. 180 Tab 3 12/22/2020 Active Meclizine HCl 12.5 MG Oral Tablet [...] tab daily 45 Tab 1 02/09/2021 Active traMADol HCl 50 MG Oral Tablet (Ultram)Indications:C hronic pain syndrome Take 1 Tab by mouth every 8 hours as needed for Pain, Severe. 90 Tab 0 02/09/2021 Active Dicyclomine HCl 20 MG Oral [...] A1c goal of 7.0%-8.0% ([facility]) TAKE ONE CAPSULE BY MOUTH THREE TIMES [...] goal of 7.0%-8.0% ([facility]) Inject 3 mg under the skin once [...] 03/20/2021 Active clonazePAM 0.5 MG Oral Tablet (KlonoPIN)Indications :Anxiety state Take 1 Tab by mouth 2 times a day. 60 Tab 0 04/14/2021 Active documented as of this encounter (statuses as of 04/17/2021) Active Problems Problem Noted Date Hypotension 12/19/2020 [...] as of this encounter (statuses as of 04/17/2021) Resolved Problems Problem Noted Date Resolved Date [...] as of this encounter (statuses as of 04/17/2021) Immunizations Name Administration Dates Next Due COVID-19 mRNA, LNP-s, No Pre serve, 2-Dose Series ([employer] 12/29/2020,12/18/2020 Pneumococcal Polysaccharide PPV23 (Pneumovax) 08/22/2009,06/15/2006 Seasonal [...] this encounter Progress Notes * Rema Real, CABLE RIGGER - 04/17/2021 2:25 PM EDT [facility] Social Work Return Visit Is this for a hospital or rehab discharge to home? Yes; brief summary of hospitalization and discharge plans: Two recent stays at the Hospital following two falls. Support System in the home: Yes GAH. Lives alone, no community supports Support System outside of the home: Yes - : Informal Support (Family and Friends)brother Galdino Camp and Rosy , Aunt Shira, has friend in building, Jessenia Transportation: Drives Health Care Benefits: Has health insurance and is adequate to meet needs ?: No DME Equipment: Walker, Rolator and regular walker, shower chair, CPAP, O2 Ability to Complete: ADLs and IADLs-sit to stand independently, walking weak but does walk with walker or holding onto furniture. BP low at times, Does cooking cleaning and laundry-working on it-can do it-take it easy. Home has some clutter but does have clear path to bathroom and kitchen. Life Planning: Yes: JESSENIA, Brother VIJAYA. MENTAL STATUS EVALUATION: Orientation: Oriented to person, place and time Appearance: Age-appropriate Eye Contact: Good Behavior: Cooperative Speech: Normal pitch, Normal rate and Normal volume Mood: stable, See Dr Castano-have an appointment-Psychology Mood Persistence: Has supports Affect: Intensity: Normal, Range: Normal, Type: Appropriate Thought Process: Goals directed Thought Content:Within normal limits Attention: Normal Sleep: Good Interest: Good Guilt/Self-blame: Negative Energy: Improved Concentration: Good Appetite: Good Psychomotor agitation/retardation: none Sex Drive: not addressed Substance Abuse Use / History: Denies use of substances Anxiety: Yes Major physical illness: Yes Recent losses or change in socio economic status: no Assessment: Based on these risk and protective factors, this patient's suicide risk is assessed to be: Minimal Depression Test Summary, Results are Patient Reported: The value you specified in the flowsheet rows parameter was overridden by order administrator build. Remove the value in the flowsheet rows parameter or contact an order administrator. The value you specified in the flowsheet rows parameter was overridden by order administrator build. Remove the value in the flowsheet rows parameter or contact an order administrator. The value you specified in the flowsheet rows parameter was overridden by order administrator build. Remove the value in the flowsheet rows parameter or contact an order administrator.. The value you specified in the flowsheet rows parameter was overridden by order administrator build. Remove the value in the flowsheet rows parameter or contact an order administrator. 1. Little interest or pleasure in doing things The value you specified in the flowsheet rows parameter was overridden by order administrator build. Remove the value in the flowsheet rows parameter or contact an order administrator. 2. Feeling down, depressed or hopeless The value you specified in the flowsheet rows parameter was overridden by order administrator build. Remove the value in the flowsheet rows parameter or contact an order administrator. 3. Trouble falling or staying asleep, or sleeping too much The value you specified in the flowsheetrows parameter was overridden by order administrator build. Remove the value in the flowsheet rows parameter or contact an order administrator. 4. Poor appetite or overeating The value you specified in the flowsheet rows parameter was overridden by order administrator build. Remove the value in the flowsheet rows parameter or contact an order administrator. 5. Feeling tired of having little energy The value you specified in the flowsheet rows parameter was overridden by order administrator build. Remove the value in the flowsheet rows parameter or contact an order administrator. 6. Feeling bad about yourself - or that you are a failure, or have let yourself of your family downThe value you specified in the flowsheet rows parameter was overridden by order administrator build. Remove the value in the flowsheet rows parameter or contact an order administrator. 7. Trouble concentrating on things, such as reading the newspaper or watching television The value you specified in the flowsheet rows parameter was overridden by order administrator build. Remove the value in the flowsheet rows parameter or contact an order administrator. 8. Moving or speaking so slowly that other people could have noticed. Or the opposite being so fidgety or restless that you have been moving around a lot more than usual The value you specified in the flowsheet rows parameter was overridden by order administrator build. Remove the value in the flowsheet rows parameter or contact an order administrator. 9. Thoughts that you would be better off , or of hurting yourself The value you specified in the flowsheet rows parameter was overridden by order administrator build. Remove the value in the flowsheet rows parameter or contact an order administrator. 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, NYHA class 1 and CKD stage 3 ([facility]) [I13.0, I50.30, N18.30] 05/14/2019 Lumbar radiculopathy [M54.16] 09/27/2018 Mild episode of recurrent major depressive disorder ([facility]) [F33.0] 08/26/2018 Chronic diastolic congestive heart failure (HCC) [I50.32] 06/12/2018 Controlled substance agreement signed [Z79.899] 07/14/2017 Morbid obesity with BMI of 50.0-59.9, adult ([facility]) [E66.01, Z68.43] 06/27/2017 Per Obesity protocol #1 - Per Obesity Taxonomy ICD-10 update of inactive term Gastroesophageal reflux disease with esophagitis [K21.00] 03/04/2017 Restless legs syndrome [G25.81] 03/25/2016 Fibromyalgia [M79.7] 02/02/2016 Abnormality of gait [R26.9] 02/02/2016 Type 2 diabetes mellitus with hemoglobin A1c goal of 7.0%-8.0% ([facility]) [E11.9] 10/14/2014 ICD-10 update of inactive term [...] Reconciliation: Taking all medication as directed?: Yes Take medications. Barriers to Treatment: Physical health barriers Social Work Goals/Interventions: Behavioral Health needs: Yes, Reinforced Behavioral Health services already In place Drug and Alcohol needs: No needs identified at this time Complex Psychosocial needs: Coordinated other community service needs and Patient Education Plan: STEFANY met with Stephanie for follow up and supportive visit. STEFANY completed above assessment. Today SW explored safety issues r/t health status maria luisa recent falls. STEFANY explored her interest in PERS as well as additional assistance in the home. STEFANY suggested we make referral to [facility] for PERS and Options program and Stephanie agreed. STEFANY and Stephanie called [employer] and formal referral made this date. A case workerwill do an assessment. STEFANY also spend time exploring her feelings and thoughts r/t return home, mood and current needs. Adonis plan to go to outpatient therapy at [facility]. This has been a positive experience in the past. She starts on Tuesday. STEFANY also explored mood. She reports feeling better now that home and plan forPT. She has also resumed Dr Castano, psychology appointments. She reports some outings with family. STEFANY followed up on homework given to her to find out if insurance would cover Y membership. She did not have time in Hospital but agreed to do so this next month. No immediate needs or concerns not addressed. STEFANY reinforced positives of continuing with counselingand outpatient therapy. Follow Up Appointment: 05/27/2021 documented in this encounter Plan of Treatment Upcoming Encounters Date Type Specialty Care Team Description 04/22/2021 [facility] Visit [facility] Don Tomas MD [address] [facility] [place] [address] [phone] 04/23/2021 Hospital Encounter Surgery Raj Ahn, DO [address] [place] [address] [phone] 04/23/2021 Surgery Surgery Raj Ahn, DO [address] [place] [address] [phone] INJECTION SPINE LUMBAR OR SACRAL 04/29/2021 Home Visit [facility] Vera Capellan, RN [address] [place] [address] [phone] 05/20/2021 Office Visit Pharmacy [facility] Jeramie [address] [place] [address] 05/26/2021 Home Visit Family Medicine Magaly Morales, Community Health Health Technical Writer [address] [place] [address] 05/27/2021 Home Visit [facility] Rema Real LSW [address] [place] [address] [phone] 07/20/2021 Office Visit Family Medicine Kevin Whiteside, [address] [place] [address] [phone] 08/18/2021 Office Visit Sleep Disorders Celsa Tafoya CRNP [address] [place] [address] [phone] 10/05/2021 Office Visit Cardiology Rey Woodall MD [address] [place] [address] [phone] Health Maintenance Due Date Last Done Comments Pneumococcal Vaccine: 65+ Years (2 of 2) 2020 08/22/2009, 06/15/2006 DIABETES-HGBA1C EVERY 6 MONTHS 05/17/2021 11/17/2020, 01/23/2020, 11/07/2019, Additional history exists Influenza Vaccine (FLU shot) (#1) 2021 06/13/2020, 07/23/2019, 06/12/2018, Additional history exists CKD GFR USE SMARTSET 83749 09/19/202103/20, 03/12/2021, 12/25/2020, Additional history exists BREAST CANCER SCREENING DISCUSSION YEARLY AGES 40-75 10/01/2021 10/01/2020, 07/10/2019, 06/23/2018, Additional history exists DIABETES-FOOT EXAM 01/14/2022 01/14/2021, 0 11/07/2019, 01/01/2019, Additional history exists CKD PHOS USE SMARTSET 43568 03/12/202202/24, 11/17/2020, 12/24/2019, Additional history exists DIABETES-URINE MICROALBUMIN EVERY 12 MONTHS 03/12/2022 03/12/2021, 03/12/2021, 12/24/2019, Additional history exists CKD HGB USE SMARTSET 71039 03/20/202203/20, 03/20/2021, 03/12/2021, Additional history exists DIABETES-EYE [...] Documents on File Type Date Recorded Patient Back End Developer Expl 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 Camp Other Health Care Hayden r of Incident Response Analyst Princess Allen Other Health Care Pow er of Incident Response Analyst
--- OUTSIDE RECORDS SUMMARY | 2023-06-01 04:59 | External Medical Summary | Summary of Care ---
Author Name Unknown Organization [facility] Address [facility] [place] [address] Care Team Providers Care Airplane First Officer Name Role Phone Kevin Whiteside DO Primary Care Provider Reason for Visit * Reason Comments Dosage Adjustment In Person (Anticoag Cl inic) Diabetes Management Encounter Details Date Type Department Care Team Description 05/20/2021 Office Visit Pharmacy, [facility] [address] [facility] [place] [address] [facility] [address] [facility] [place] [address] Type 2 diabetes mellitus with hemoglobin A1c [...] as of this encounter (statuses as of 05/20/2021) Medications Medication Sig Dispensed Refills Start Date [...] 0 04/08/2020 Active Blood Glucose Monitoring Suppl ([facility] ULTRA 2) w/Device KIT Use to test [...] as of this encounter (statuses as of 05/20/2021) Active Problems Problem Noted Date Hypotension 12/19/2020 [...] as of this encounter (statuses as of 05/20/2021) Resolved Problems Problem Noted Date Resolved Date [...] as of this encounter (statuses as of 05/20/2021) Immunizations Name Administration Dates Next Due COVID-19 mRNA, LNP-s, No Pre serve, 2-Dose Series ([employer]) 12/29/2020,12/18/2020 Pneumococcal Polysaccharide PPV23 (Pneumovax) 08/22/2009,06/15/2006 [...] this encounter Progress Notes * Mina Alonzo, [facility] - 05/20/2021 9:30 AM EDT Medication Therapy Disease [facility] - Diabetes Management Progress Note Stephanie Camp, identified by name and date of , is a 66 year old female being seen for diabetes management/education. Patient presents for return diabetic visit. DIABETES: Current diabetic medications: Diabetic Medications: Novolog - 40 units with meals +SS 1:25 >150 Tresiba 60 units HS Increase Trulicity 3 mg weekly- Tuesday mornings Medication Injection Site: Abdomen Lifestyle: Diet: unchanged Glucose Review/SMBG: Readings obtained from patient device Pre am Post am Pre Lunch Post Lunch Pre pm Post pm HS middle night 221 186 166 240 179 148 160 202 264 326 214 285 197 409 423 257 201 275 306 246 331 201 192 234 297 221 Pre am Post am Pre Lunch Post Lunch Pre pm Post pm HS middle night Average 227 #DIV/0! 228 306 260 #DIV/0! 270 #DIV/0! Hi 409 0 285 306 423 0 331 0 Lo 179 0 148 306 160 0 221 0 Range 230 0 137 0 263 0 110 0 Hypoglycemia: Does your blood sugar go below 70 mg/dL? No Hyperglycemia symptoms present: none Lab Results Component Value Date/Time HEMOGLOBIN A1C - [facility] 8.3 (H) 11/17/2020 01:00 PM HEMOGLOBIN A1C - [facility] 7.3 (H) 01/23/2020 11:11 AM HEMOGLOBIN A1C - [facility] 8.3 (H) 11/07/2019 03:04 PM HEMOGLOBIN A1C - [facility] 9.4 (H) 08/09/2019 11:02 AM Lab Results Component Value Date/Time ESTIMATED GLOMERULAR FILTRATION RATE - [facility] 33.8 (L) 03/20/2021 03:37 PM ESTIMATED GLOMERULAR FILTRATION RATE - [facility] 34.1 (L) 03/12/2021 03:05 PM ESTIMATED GLOMERULAR FILTRATION RATE - [facility] 39.5 (L) 12/25/2020 10:10 AM ESTIMATED GLOMERULAR FILTRATION RATE - [facility] 26.0 (L) 05/06/2020 08:46 AM ESTIMATED GLOMERULAR FILTRATION RATE - [facility] 31.8 (L) 03/07/2020 11:48 AM ESTIMATED GLOMERULAR FILTRATION RATE - [facility] 38.3 (L) 02/21/2020 12:30 PM ESTIMATED GLOMERULAR FILTRATION RATE - [facility] 51.0 (L) 06/08/2013 09:06 AM ESTIMATED GLOMERULAR FILTRATION RATE - [facility] 57.2 (L) 02/07/2013 02:17 PM ESTIMATED GLOMERULAR FILTRATION RATE - [facility] >60.0 11/16/2012 08:46 AM Lab Results Component Value Date/Time CREATININE - [facility] 1.6 (H) 03/20/2021 03:37 PM CREATININE - [facility] 1.6 (H) 03/12/2021 03:05 PM CREATININE - [facility] 1.4 (H) 12/25/2020 10:10 AM CREATININE - [facility] 2.0 (H) 05/06/2020 08:46 AM CREATININE - [facility] 1.7 (H) 03/07/2020 11:48 AM CREATININE - [facility] 1.4 (H) 02/21/2020 12:30 PM No results found for: HEMOGLOBIN A1C POCT HYPERTENSION: Patient on ACEi/ARB: no, declines BP Readings from Last 3 Encounters: 04/29/21 96/60 04/15/21 96/56 Blood pressure at goal: Yes HYPERLIPIDEMIA: Patient is taking moderate or high intensity statin: No HEALTH MAINTENANCE REVIEW: Health Maintenance Due Topic Date Due Pneumococcal Vaccine: 65+ Years (2 of 2 - PPSV23) 2020 DIABETES-HGBA1C EVERY 6 MONTHS 05/17/2021 ASSESSMENT & PLAN: ICD-10-CM 1. Type 2 diabetes mellitus with hemoglobin A1c goal of 7.0%-8.0% (HCC) E11.9 BG Readings Blood sugars have been controlled except for recently when patient reported food poisoning followed by steroid injection in her back. Recent readings over the past few days better than a few weeks ago due to this. BG readings erratic so adjusting her basal insulin does not seem reasonable at this time. In terms of bolus insulin, meals are sometimes covered by the 40 units and sometimes not but the correction factor does appear to be lowering the BG into range from meal to meal. Medications Reviewed current regimen, patient is adherent to regimen. Will not make any changesat this time, will await updated A1c prior to next visit to make decision on medication adjustments. Diet, Exercise, Lifestyle Patient reportedly has started physical therapy for her legs. Patient is agreeable to SMBG 3 time(s) daily. Patient aware to contact clinic if any hypoglycemia before next visit. MEDICATION CHANGES: no change Diabetic Medications: Novolog - 40 units with meals +SS 1:25 >150 Tresiba 60 units HS Increase Trulicity 3 mg weekly- Tuesday mornings HEALTH MAINTENANCE INTERVENTIONS: Labs: A1c due prior to next visit. Immunizations: Up to Date Foot Exam: Up to Date Eye Exam: Up to Date Annual Wellness Visit: N/A FOLLOW UP: Return to clinic in 8 weeks Next Office Visit: 07/20/2021 Scheduled Provider(s): [facility] Jeramie Alonzo [facility] Clinical Pharmacist - Dairy Nutritionist Medication Therapy Management Clinic 05/20/2021, 9:09 AM documented in this encounter Plan of Treatment Upcoming Encounters Date Type Specialty Care Team Description 05/26/2021 Home Visit Family Medicine Magaly Morales, Community Health Retail Product Demo Specialist [address] [place] [address] [phone] 05/27/2021 [facility] Visit [facility] Rema Real LSW [address] [place] [address] [phone] 06/16/2021 Home Visit [facility] Vera Capellan RN [address] [place] [address] [phone] 07/20/2021 Office Visit [facility] Moe Bobo [address] [place] [address] 07/20/2021 Office Visit Family Medicine Kevin Whiteside DO [address] [place] [address] [phone] 08/18/2021 Office Visit Sleep Disorders Celsa Tafoya CRNP [address] [place] [address] 10/05/2021 Office Visit Cardiology Rey Woodall MD [address] [place] [address] Health Maintenance Due Date Last Done Comments Pneumococcal Vaccine: 65+ Years (2 of 2 - PPSV23) 2020 08/22/2009, 06/15/2006 DIABETES-HGBA1C EVERY 6 MONTHS 05/17/2021 11/17/2020, 01/23/2020, 11/07/2019, Additional history exists Influenza Vaccine (FLU shot) (#1) 2021 06/13/2020, 07/23/2019, 06/12/2018, Additional history exists CKD GFR USE SMARTSET 34593 09/19/202103/20, 03/12/2021, 12/25/2020, Additional history exists BREAST CANCER SCREENING DISCUSSION YEARLY AGES 40-75 10/01/2021 10/01/2020, 07/10/2019, 06/23/2018, Additional history exists DIABETES-FOOT EXAM 01/14/2022 01/14/2021, 0 11/07/2019, 01/01/2019, Additional history exists CKD PHOS USE SMARTSET 84376 03/12/202202/24, 11/17/2020, 12/24/2019, Additional history exists DIABETES-URINE MICROALBUMIN EVERY 12 MONTHS 03/12/2022 03/12/2021, 03/12/2021, 12/24/2019, Additional history exists CKD HGB USE SMARTSET 05037 03/20/202203/20, 03/20/2021, 03/12/2021, Additional history exists DIABETES-EYE [...] Documents on File Type Date Recorded Patient New Car Inspector Expl 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 Camp Other Health Care Hayden r of Child Care Associate Princess Allen Other Health Care Pow er of Child Care Associate
--- OUTSIDE RECORDS SUMMARY | 2023-06-01 04:59 | External Medical Summary | Summary of Care ---
Author Name Unknown Organization [facility] Address [facility] [place] [address] Care Team Providers Care Seat Maker Name Role Phone Kevin Whiteside DO Primary Care Provider Reason for Visit * Reason Comments [facility]: Maintenance Encounter Details Date Type Department Care Team Description 05/27/2021 Home Visit [facility] [address] [place] [address] Rema Real LSW [address] [place] [address] [phone] Allergies Active Allergy Reactions Severity Noted Date Comments Codeine 07/08/2014 hallucination Pollen 05/18/2019 Heparin 09/04/2009 Heparin Induced Thrombocytopenia Hydrocodone Neuro complications (Please comment) 07/28/2020 Empagliflozin Other (Please comment) Medium 05/17/2018 3 yeast infections in 6 weeks after starting Morphine And Related 09/16/1997 Hallucinations Tetanus Toxoid Other (Please comment) 06/15/2011 Passed out documented as of this encounter (statuses as of 05/27/2021) Medications Medication Sig Dispensed Refills Start Date [...] 0 04/08/2020 Active Blood Glucose Monitoring Suppl (AveillantTOUCH ULTRA 2) w/Device KIT Use to test [...] as of this encounter (statuses as of 05/27/2021) Active Problems Problem Noted Date Hypotension 12/19/2020 [...] as of this encounter (statuses as of 05/27/2021) Resolved Problems Problem Noted Date Resolved Date [...] as of this encounter (statuses as of 05/27/2021) Immunizations Name Administration Dates Next Due COVID-19 mRNA, LNP-s, No Pre serve, 2-Dose Series (Plovgh) 12/29/2020,12/18/2020 Pneumococcal Polysaccharide PPV23 (Pneumovax) 08/22/2009,06/15/2006 Seasonal [...] of this encounter Progress Notes * Rema RealELISABET - 05/27/2021 3:13 PM EDT [facility] Social Work Return Visit Is this for a hospital or rehab discharge to home? No Support System in the home: Yes AAA completed assessment -did qualify for PERS and personal care-name on wait list, [facility], Seeing Dr Garcia-every other Tuesday. Support System outside of the home: Yes - : Informal Support (Family and Friends)Family Transportation: Drives Health Care Benefits: Has health insurance and is adequate to meet needs ?: No DME Equipment: Walker cane, shower chair Ability to Complete: ADLs and IADLs-independent transfers, ambulation, bathing and dressing, does own cooking, laundry, cleaning Life Planning: Yes: Medical Power of Prison Teacher and Living Will MENTAL STATUS EVALUATION: Orientation: Oriented to person, place and time Appearance: Age-appropriate Eye Contact: Good Behavior: Cooperative Speech: Normal pitch, Normal rate and Normal volume Mood: stable Mood Persistence: Does see Dr Garcia psychologist Affect: Intensity: Normal, Range: Normal, Type: Appropriate Thought Process: Goals directed Thought Content:Within normal limits Attention: Normal Sleep: Good Interest: No change Guilt/Self-blame: Negative Energy: Improved Concentration: Good Appetite: Good Psychomotor agitation/retardation: none Sex Drive: not addressed Substance Abuse Use / History: Denies use of substances Anxiety: bettter-less anxious Major physical illness: Yes Recent losses or change in socio economic status: No Assessment: Based on these risk and protective factors, this patient's suicide risk is assessed to be: Minimal Depression Test Summary, Results are Patient Reported: The value you specified in the flowsheet rows parameter was overridden by court administrator build. Remove the value in the flowsheet rows parameter or contact an court administrator. The value you specified in the flowsheet rows parameter was overridden by court administrator build. Remove the value in the flowsheet rows parameter or contact an court administrator. The value you specified in the flowsheet rows parameter was overridden by court administrator build. Remove the value in the flowsheet rows parameter or contact an court administrator.. The value you specified in the flowsheet rows parameter was overridden by court administrator build. Remove the value in the flowsheet rows parameter or contact an court administrator. 1. Little interest or pleasure in doing things The value you specified in the flowsheet rows parameter was overridden by court administrator build. Remove the value in the flowsheet rows parameter or contact an court administrator. 2. Feeling down, depressed or hopeless The value you specified in the flowsheet rows parameter was overridden by court administrator build. Remove the value in the flowsheet rows parameter or contact an court administrator. 3. Trouble falling or staying asleep, or sleeping too much The value you specified in the flowsheetrows parameter was overridden by court administrator build. Remove the value in the flowsheet rows parameter or contact an court administrator. 4. Poor appetite or overeating The value you specified in the flowsheet rows parameter was overridden by court administrator build. Remove the value in the flowsheet rows parameter or contact an court administrator. 5. Feeling tired of having little energy The value you specified in the flowsheet rows parameter was overridden by court administrator build. Remove the value in the flowsheet rows parameter or contact an court administrator. 6. Feeling bad about yourself - or that you are a failure, or have let yourself of your family downThe value you specified in the flowsheet rows parameter was overridden by court administrator build. Remove the value in the flowsheet rows parameter or contact an court administrator. 7. Trouble concentrating on things, such as reading the newspaper or watching television The value you specified in the flowsheet rows parameter was overridden by court administrator build. Remove the value in the flowsheet rows parameter or contact an court administrator. 8. Moving or speaking so slowly that other people could have noticed. Or the opposite being so fidgety or restless that you have been moving around a lot more than usual The value you specified in the flowsheet rows parameter was overridden by court administrator build. Remove the value in the flowsheet rows parameter or contact an court administrator. 9. Thoughts that you would be better off , or of hurting yourself The value you specified in the flowsheet rows parameter was overridden by court administrator build. Remove the value in the flowsheet rows parameter or contact an court administrator. 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, NYHA class 1 and CKD stage 3 ([facility]) [I13.0, I50.30, N18.30] 05/14/2019 Lumbar radiculopathy [M54.16] 09/27/2018 Mild episode of recurrent major depressive disorder ([facility]) [F33.0] 08/26/2018 Chronic diastolic congestive heart failure ([facility]) [I50.32] 06/12/2018 Controlled substance agreement signed [Z79.899] 07/14/2017 Morbid obesity with BMI of 50.0-59.9, adult ([facility]) [E66.01, Z68.43] 06/27/2017 Per Obesity protocol #1 - Per Obesity Taxonomy ICD-10 update of inactive term Gastroesophageal reflux disease with esophagitis [K21.00] 03/04/2017 Restless legs syndrome [G25.81] 03/25/2016 Fibromyalgia [M79.7] 02/02/2016 Abnormality of gait [R26.9] 02/02/2016 Type 2 diabetes mellitus with hemoglobin A1c goal of 7.0%-8.0% ([facility]) [E11.9] 10/14/2014 ICD-10 update of inactive term [place] filter in place [Z95.828] 08/19/2014 History of pulmonary embolus (PE) [Z86.711] 07/16/2014 Statin intolerance [Z78.9] 07/16/2014 HTN, goal below 130/80 [I10] 02/22/2014 Venous insufficiency [I87.2] 02/07/2013 ELISSA (obstructive sleep apnea) [G47.33] 09/16/2011 CPAP 11 cwp Mild, AHI 11.3 but with significant nocturnal hypoxemia Zhane Postsurgical hypothyroidism [E89.0] 06/16/2011 ELLIE (generalized anxiety disorder) [F41.1] 09/13/2009 Dyslipidemia [E78.5] 09/04/2009 Per Lipid Taxonomy. Med Reconciliation: Taking all medication as directed?: Yes Take as directed Barriers to Treatment: Physical health barriers Social Work Goals/Interventions: Behavioral Health needs: Yes, Reinforced Behavioral Health services already In place Drug and Alcohol needs: No needs identified at this time Complex Psychosocial needs: Coordinated other community service needs Plan: STEFANY met with Stephanie for follow up and supportive visit. Stephanie reporting feeling better-less anxious, she reports improvement in BS. She continued to see Dr Garcia for follow up. We have talked about following up on coverage for Oct[employer] and she did call [facility]. She needs to make another call to find access number to give to Y. She reports she will call again this next month. She continues to do activities she enjoys-shopping, spending time with friend And reading and watching TV. She is going to therapy and enjoys the Physical therapy. She reports AAA did assessment and she will be getting PERS and On list for in home care. STEFANY will follow up in one month. Follow Up Appointment: July 01 documented in this encounter Plan of Treatment Upcoming Encounters Date Type Specialty Care Team Description 06/16/2021 Home Visit [facility] Vera Capellan RN [address] [place] [address] [phone] 07/01/2021 Home Visit [facility] Rema Real LSW [address] [place] [address] [phone] 07/07/2021 Home Visit Family Medicine Magaly Morales, Community Health Cage Maker [address] [place] [address] [phone] 07/20/2021 Office Visit [facility]acy [facility] [place] [address] [place] [address] 07/20/2021 Office Visit Family Medicine Kevin Whiteside DO [address] [place] [address] [address] [phone] 08/18/2021 Office Visit Sleep Disorders Celsa Tafoya CRNP [address] [place] [address] [address] 10/05/2021 Office Visit Cardiology Rey Woodall MD [address] [place] [id number] Health Maintenance Due Date Last Done Comments Pneumococcal Vaccine: 65+ Years (2 of 2 - PPSV23) 2020 08/22/2009, 06/15/2006 DIABETES-HGBA1C EVERY 6 MONTHS 05/17/2021 11/17/2020, 01/23/2020, 11/07/2019, Additional history exists Influenza Vaccine (FLU shot) (#1) 2021 06/13/2020, 07/23/2019, 06/12/2018, Additional history exists CKD GFR USE SMARTSET 02033 09/19/202103/20, 03/12/2021, 12/25/2020, Additional history exists BREAST CANCER SCREENING DISCUSSION YEARLY AGES 40-75 10/01/2021 10/01/2020, 07/10/2019, 06/23/2018, Additional history exists DIABETES-FOOT EXAM 01/14/2022 01/14/2021, 0 11/07/2019, 01/01/2019, Additional history exists CKD PHOS USE SMARTSET 75881 03/12/202202/24, 11/17/2020, 12/24/2019, Additional history exists DIABETES-URINE MICROALBUMIN EVERY 12 MONTHS 03/12/2022 03/12/2021, 03/12/2021, 12/24/2019, Additional history exists CKD HGB USE SMARTSET 85647 03/20/202203/20, 03/20/2021, 03/12/2021, Additional history exists DIABETES-EYE [...] Documents on File Type Date Recorded Patient Underground Distribution Engineer Expl 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 Camp Other Health Care Hayden r of Prison Teacher Princess Allen Other Health Care Pow er of Prison Teacher
--- OUTSIDE RECORDS SUMMARY | 2023-06-01 04:59 | External Medical Summary | Summary of Care ---
Author Name Unknown Organization [place] [address] Care Team Providers Care Management Retail Intern Name Role Phone Kevin Whiteside DO Primary Care Provider Reason for Visit * Reason Onset Date Comments Appointment 04/16/2021 Encounter Details Date Type Department Care Team Description 04/16/2021 Telephone [facility] [address] [facility] [id number] Apple Kaminski MD Appointment Allergies Active Allergy Reactions Severity Noted Date Comments Codeine 07/08/2014 hallucination Pollen 05/18/2019 Heparin 09/04/2009 Heparin Induced Thrombocytopenia Hydrocodone Neuro complications (Please comment) 07/28/2020 Empagliflozin Other (Please comment) Medium 05/17/2018 3 yeast infections in 6 weeks after starting Morphine And Related 09/16/1997 Hallucinations Tetanus Toxoid Other (Please comment) 06/15/2011 Passed out documented as of this encounter (statuses as of 04/22/2021) Medications Medication Sig Dispensed Refills Start Date [...] 0 04/08/2020 Active Blood Glucose Monitoring Suppl (Anthology SolutionsTOUCH ULTRA 2) w/Device KIT Use to [...] [facility]) TAKE ONE CAPSULE BY MOUTH THREE TIMES [...] [facility]) Inject 3 mg under the skin once [...] as of this encounter (statuses as of 04/22/2021) Active Problems Problem Noted Date Hypotension 12/19/2020 [...] as of this encounter (statuses as of 04/22/2021) Resolved Problems Problem Noted Date Resolved Date [...] as of this encounter (statuses as of 04/22/2021) Immunizations Name Administration Dates Next Due COVID-19 [...] Telephone Encounter - Miranda Quick OSA - 04/22/2021 3:41 PM EDT Mailed patient a letter asking her to call us to schedule an appointment. * Telephone Encounter - Miranda Quick OSA - 04/22/2021 12:18 PM EDT Called patient, left message to return call. * Telephone Encounter - Miranda Quick OSA - 04/20/2021 12:08 PM EDT Called patient, left message to return call. * Telephone Encounter - Miranda Quick OSA - 04/16/2021 11:38 AM EDT Called patient, left message to return call. * Telephone Encounter - Miranda Quick OSA - 04/16/2021 11:37 AM EDT ----- Message from ELISSA Kaufman sent at 04/15/2021 2:40 PM EDT ----- Please assist with scheduling with a new Manufacturer Agent. ELISSA Kaufman ----- Message ----- From: Vera Capellan RN Sent: 04/15/2021 1:57 PM EDT To: , # Pt needs follow up appt with Dermatology. She used to see Dr. Evans but that MD is not longer there. Can she please be set up with a different vascular technologist? Thank you! documented in this encounter Plan of Treatment Upcoming Encounters Date Type Specialty Care Team Description 04/23/2021 Hospital Encounter Surgery Raj Ahn, DO [address] [place] [address] [phone] 04/23/2021 Surgery Surgery Cousins, Raj Nolen DO [address] [place] [address] [phone] INJECTION SPINE LUMBAR OR SACRAL 04/29/2021 Home Visit [facility] Vera Capellan, RN [address] [place] [address] [phone] 05/20/2021 Office Visit Pharmacy [facility] [place] [address] [place] [address] 05/26/2021 Home Visit Family Medicine Magaly Morales, Community Health Medical Staff Director [address] [place] [address] [phone] 05/27/2021 Home Visit [facility] Rema Real LSW [address] [place] [address] [phone] 07/20/2021 Office Visit Family Medicine Kevin Whiteside DO [address] [place] [address] [phone] 08/18/2021 Office Visit Sleep Disorders Celsa Tafoya CRNP [address] [place] [address] [phone] 10/05/2021 Office Visit Cardiology Rey Woodall MD [address] [place] [address] [phone] Health Maintenance Due Date Last Done Comments Pneumococcal Vaccine: 65+ Years (2 of 2) 2020 08/22/2009, 06/15/2006 DIABETES-HGBA1C EVERY 6 MONTHS 05/17/2021 11/17/2020, 01/23/2020, 11/07/2019, Additional history exists Influenza Vaccine (FLU shot) (#1) 2021 06/13/2020, 07/23/2019, 06/12/2018, Additional history exists CKD GFR USE SMARTSET 70566 09/19/202103/20, 03/12/2021, 12/25/2020, Additional history exists BREAST CANCER SCREENING DISCUSSION YEARLY AGES 40-75 10/01/2021 10/01/2020, 07/10/2019, 06/23/2018, Additional history exists DIABETES-FOOT EXAM 01/14/2022 01/14/2021, 0 11/07/2019, 01/01/2019, Additional history exists CKD PHOS USE SMARTSET 82238 03/12/202202/24, 11/17/2020, 12/24/2019, Additional history exists DIABETES-URINE MICROALBUMIN EVERY 12 MONTHS 03/12/2022 03/12/2021, 03/12/2021, 12/24/2019, Additional history exists CKD HGB USE SMARTSET 42845 03/20/202203/20, 03/20/2021, 03/12/2021, Additional history exists DIABETES-EYE [...] Documents on File Type Date Recorded Patient Glass Silverer Expl 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 Camp Other Health Care Hayden r of Storage Battery Charger Princess Allen Other Health Care Pow er of Storage Battery Charger
--- OUTSIDE RECORDS SUMMARY | 2023-06-01 04:59 | External Medical Summary | Summary of Care ---
Author Name Unknown Organization [place] [address] Care Team Providers Care Civil Engineering Intern Name Role Phone Migue Whiteside DO Primary Care Provider Reason for Visit * Reason Onset Date Comments Medication Refill 05/16/2021 Encounter Details Date Type Department Care Team Description 05/16/2021 Refill [facility] [address] [place] [...] as of this encounter (statuses as of 05/19/2021) Medications Medication Sig Dispensed Refills Start Date [...] 0 04/08/2020 Active Blood Glucose Monitoring Suppl (EvoTronixUCH ULTRA 2) w/Device KIT Use to test [...] a day. 60 Tab 0 05/19/2021 Active clonazePAM 0.5 MG Oral Tablet (KlonoPIN)Indicatio ns:Anxiety state Take 1 Tab by mouth 2 times a day. 60 Tab 0 04/14/2021 1 Discontinue d(Refill) documented as of this encounter (statuses as of 05/19/2021) Active Problems Problem Noted Date Hypotension 12/19/2020 [...] 10/14/2014 Overview: ICD-10 update of inactive term [place] filter in place 08/19/2014 History of pulmonary embolus (PE) 2013 Statin intolerance 07/16/2014 HTN, goal below 130/80 02/22/2014 Venous insufficiency 02/07/2013 ELISSA (obstructive sleep apnea) 09/16/2011 Overview: CPAP 11 cwp Mild, AHI 11.3 but with significant nocturnal hypoxemia Dicks Postsurgical hypothyroidism 06/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 documented as of this encounter (statuses as of 05/19/2021) Resolved Problems Problem Noted Date Resolved Date [...] as of this encounter (statuses as of 05/19/2021) Immunizations Name Administration Dates Next Due COVID-19 mRNA, LNP-s, No Pre serve, 2-Dose Series (DigitalOcean) 12/29/2020,12/18/2020 Pneumococcal Polysaccharide PPV23 (Pneumovax) 08/22/2009,06/15/2006 Seasonal [...] Telephone Encounter - Migue Whiteside DO - 05/19/2021 7:41 AM EDT Signed Prescriptions: Disp Refills clonazePAM 0.5 MG Oral Tablet (KlonoPIN) 60 Tab 0 Sig: Take 1 Tab by mouth 2 times a day. Authorizing Provider: MIGUE WHITESIDE * Telephone Encounter - Linda Dexter LPN - 05/18/2021 1:14 PM EDT Pending Prescriptions: Disp Refills clonazePAM 0.5 MG Oral Tablet (KlonoPIN) 60 Tab 0 Sig: Take 1 Tab by mouth 2 times a day. * Telephone Encounter - Linda Dexter LPN - 05/18/2021 1:13 PM EDT Pending Prescriptions: Disp Refills clonazePAM 0.5 MG Oral Tablet (KlonoPIN) 60 Tab 0 Sig: Take 1 Tab by mouth 2 times a day. Last Office/Telemedicine Visit: 04/14/2021 07/20/2021 Last date the medication was ordered: Patient [...] 7.0%-8.0% ([facility]) E11.9 Fibromyalgia M79.7 Abnormality of gait R26.9 Restless legs syndrome G25.81 Gastroesophageal reflux disease with esophagitis K21.00 Morbid obesity with BMI of 50.0-59.9, adult ([facility]) E66.01, Z68.43 Controlled substance agreement signed Z79.899 Chronic diastolic congestive heart failure ([facility]) I50.32 Mild episode of recurrent major depressive disorder ([facility]) F33.0 Lumbar radiculopathy M54.16 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, NYHA class 1 and CKD stage 3 ([facility]) I13.0, I50.30, N18.30 Hyperparathyroidism, secondary renal ([facility]) N25.81 Vasculitis ([facility]) I77.6 Primary osteoarthritis of left knee M17.12 Spinal stenosis of lumbar region without neurogenic claudication M48.061 Hypotension I95.9 Labs: Lab Results Component Value Date/Time CREATININE - [facility] 1.6 (H) 03/20/2021 03:37 PM CREATININE - [facility] 2.0 (H) 05/06/2020 08:46 AM CREATININE JOHNNY 50 09/04/2018 02:27 PM CREATININE, RANDOM URINE - [facility] 79 03/12/2021 03:05 PM CREATININE, RANDOM URINE - [facility] 52 12/24/2019 07:28 AM CREATININE-[facility] 1.74 (A) 03/13/2020 Lab Results Component Value Date/Time POTASSIUM - [facility] 4.6 03/20/2021 03:37 PM POTASSIUM - [facility] 4.0 05/06/2020 08:46 AM POTASSIUM-[facility] 3.7 03/13/2020 Lab Results Component Value Date/Time TSH - [facility] 3.88 12/25/2020 10:10 AM TSH - [facility] 5.35 (H) 05/06/2020 08:46 AM TSH - OUT[facility]IDE [facility] 1.960 02/26/2019 Lab Results Component Value Date/Time LDL CHOLESTEROL [...] 05/06/2020 08:46 AM ALT-[facility] 31 05/21/2017 Hemoglobin AIC Results: Lab Results Component Value Date/Time HEMOGLOBIN A1C - [facility] 8.3 (H) 11/17/2020 01:00 PM HEMOGLOBIN A1C - [facility] 7.3 (H) 01/23/2020 11:11 AM HEMOGLOBIN A1C - [facility] 8.3 (H) 11/07/2019 03:04 PM HEMOGLOBIN A1C - [facility] 9.4 (H) 08/09/2019 11:02 AM documented in this encounter Plan of Treatment Upcoming Encounters Date Type Specialty Care Team Description 05/20/2021 Office Visit [facility] [place] [address] [place] [address] [id number] 05/26/2021 Home Visit Family Medicine Magaly Morales, Community Health Cafe Worker [address] [facility] [address] [phone] 05/27/2021 [facility] Visit [facility] Rema Real LSW [address] [place] [address] [address] [phone] 06/16/2021 Home Visit [facility] Vera Capellan, RN [address] [place] [address] [address] [phone] 07/20/2021 Office Visit Family Medicine Migue Whiteside DO [address] [place] [address] [address] [phone] 08/18/2021 Office Visit Sleep Disorders Celsa Tafoya CRNP [address] [place] [address] [address] [phone] 10/05/2021 Office Visit Cardiology Rey Woodall MD [address] [place] [address] [address] [phone] Health Maintenance Due Date Last Done Comments Pneumococcal Vaccine: 65+ Years (2 of 2 - PPSV23) 2020 08/22/2009, 06/15/2006 DIABETES-HGBA1C EVERY 6 MONTHS 05/17/2021 11/17/2020, 01/23/2020, 11/07/2019, Additional history exists Influenza Vaccine (FLU shot) (#1) 2021 06/13/2020, 07/23/2019, 06/12/2018, Additional history exists CKD GFR USE SMARTSET 49843 09/19/202103/20, 03/12/2021, 12/25/2020, Additional history exists BREAST CANCER SCREENING DISCUSSION YEARLY AGES 40-75 10/01/2021 10/01/2020, 07/10/2019, 06/23/2018, Additional history exists DIABETES-FOOT EXAM 01/14/2022 01/14/2021, 0 11/07/2019, 01/01/2019, Additional history exists CKD PHOS USE SMARTSET 06075 03/12/202202/24, 11/17/2020, 12/24/2019, Additional history exists DIABETES-URINE MICROALBUMIN EVERY 12 MONTHS 03/12/2022 03/12/2021, 03/12/2021, 12/24/2019, Additional history exists CKD HGB USE SMARTSET 85169 03/20/202203/20, 03/20/2021, 03/12/2021, Additional history exists DIABETES-EYE [...] Documents on File Type Date Recorded Patient Financial Planning Adviser Expl 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 Camp Other Health Care Hayden r of Offset Press Operator Helper Princess Allen Other Health Care Pow er of Offset Press Operator Helper
--- OUTSIDE RECORDS SUMMARY | 2023-06-01 04:59 | External Medical Summary | Summary of Care ---
Author Name Unknown Organization [place] [address] Care Team Providers Care Music Industry Intern Name Role Phone Kevin Whiteside DO Primary Care Provider Reason for Visit * Reason Comments [facility]: Maintenance Encounter Details Date Type Department Care Team Description 05/26/2021 Home Visit Care Coordination [address] [place] [address] Magaly Morales, Community Health Sheetfed Press Operator [address], [place] [id number] Benign hypertensive heart and kidney disease with [...] as of this encounter (statuses as of 05/26/2021) Medications Medication Sig Dispensed Refills Start Date [...] 0 04/08/2020 Active Blood Glucose Monitoring Suppl (AVISUCH ULTRA 2) w/Device KIT Use to test [...] goal of 7.0%-8.0% ([facility]) TAKE ONE CAPSULE BY [...] as of this encounter (statuses as of 05/26/2021) Active Problems Problem Noted Date Hypotension 12/19/2020 [...] 10/14/2014 Overview: ICD-10 update of inactive term [place] filter in place 08/19/2014 History of pulmonary embolus (PE) 2013 Statin intolerance 07/16/2014 HTN, goal below 130/80 02/22/2014 Venous insufficiency 02/07/2013 ELISSA (obstructive sleep apnea) 09/16/2011 Overview: CPAP 11 cwp Mild, AHI 11.3 but with significant nocturnal hypoxemia Dicks Postsurgical hypothyroidism 06/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 documented as of this encounter (statuses as of 05/26/2021) Resolved Problems Problem Noted Date Resolved Date [...] as of this encounter (statuses as of 05/26/2021) Immunizations Name Administration Dates Next Due COVID-19 mRNA, LNP-s, No Pre serve, 2-Dose Series ([facility]) 12/29/2020,12/18/2020 Pneumococcal Polysaccharide PPV23 (Pneumovax) 08/22/2009,06/15/2006 Seasonal [...] Sign Reading Time Taken Comments Blood Pressure 118/64 05/26/2021 11:23 AM EDT Pulse 69 05/26/2021 11:23 AM EDT Temperature 36.6 C (97.8 F) 05/26/2021 11:23 AM E DT Respiratory Rate 20 05/26/2021 11:23 AM EDT Oxygen Saturation 99% 05/26/2021 11:23 AM EDT Inhaled Oxygen Concentration - - Weight - - Height - - Body Mass Index - - documented in this encounter Progress Notes * Magaly Morales, Community Health Sheetfed Press Operator - 05/26/2021 10:52 AM EDT Community [facility] Sheetfed Press Operator Visit Date: 05/26/2021 Time: 10:52 AM Name: Stephanie Camp : 1955 Referral Source: strategy manager Source of Information: Patient Spoken language: Tongan Patient can read in Tongan: Yes. Family Medicine Physician Assistant needed: No. COVID-19 screening completed: Yes Vitals: Vital signs completed: Yes, vital signs within normal range. [facility] 03/11/2003 Condition Changes: Changes in health or social status since last visit: Feeling sleepy Vertigo has been more active with ringing in ears.Takes medication and goes to bed Better today Slight swelling right lower extremity non pitting The patient has new concerns since last visit: No Medications: Medication review completed? No, no issues reported Does the patient have barriers to medication adherence? No. Patient reports difficulty paying for medications or might in the future: No. Telehealth: This is a telehealth visit: No. Symptoms Surveys and Evaluations: MA[facility]10 completed this visit: Yes. Score is greater than 4? Yes, notified Provider/Patient Registration 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 Last flowsheet values for [facility]: Age 65+: 1 (05/26/2021 11:00 AM) Diagnosis [...] at risk for fallin (05/26/2021 11:00 AM) Diabetes Survey Community Health Sheetfed Press Operator (LES) visiting patient for pre-nutrition review and/or telemedicine video visit. Blood glucose testing review: The patient has a glucometer: Yes, + Patient tests their blood sugar 3-4 times a day Over the past two weeks blood sugar range: Reports has been in 200"s Patient not recording 225 is her average Per her glucometer Plan: Reinforced patient's three red flags by the care team Patient's 'Red Flags': 1. Increased SOB 2. Increased edema 3. Worsening pain Treatment/Plan: Meds as ordered/reviewed Ambulate with roller walker at ALL times o2 2lnc qhs and day prn cpap with 2l qhs Apap, tramadol and topical pain relievers for pain Follow Up: Patient encouraged to call the intake phone number for all urgent but not emergent issues. Scheduled to follow up with patient in 6 weeks . Magaly Morales [facility] Sheetfed Press Operator 05/26/2021 10:52 AM Electronically signed by Magaly Morales [facility] Sheetfed Press Operator at 05/26/2021 12:23 PM EDT documented in this encounter Plan of Treatment Upcoming Encounters Date Type Specialty Care Team Description 05/27/2021 Home Visit [facility] Rema Real LSW [address] [facility] [place] [address] [phone] 06/16/2021 Home Visit [facility] Vera Capellan, RN [address] [facility] [place] [address] [phone] 07/07/2021 Home Visit Family Medicine Magaly Morales, Community Health Sheetfed Press Operator [address] [place] [address] [phone] 07/20/2021 Office Visit Pharmacy [facility] [place] [address] [place] [address] 07/20/2021 Office Visit Family Medicine Kevin Whiteside DO [address] [place] [address] [phone] 08/18/2021 Office Visit Sleep Disorders Celsa Tafoya CRNP [address] [place] [address] [phone] 10/05/2021 Office Visit Cardiology Rey Woodall MD [address] [place] [address] [phone] Health Maintenance Due Date Last Done Comments Pneumococcal Vaccine: 65+ Years (2 of 2 - PPSV23) 2020 08/22/2009, 06/15/2006 DIABETES-HGBA1C EVERY 6 MONTHS 05/17/2021 11/17/2020, 01/23/2020, 11/07/2019, Additional history exists Influenza Vaccine (FLU shot) (#1) 2021 06/13/2020, 07/23/2019, 06/12/2018, Additional history exists CKD GFR USE SMARTSET 74488 09/19/202103/20, 03/12/2021, 12/25/2020, Additional history exists BREAST CANCER SCREENING DISCUSSION YEARLY AGES 40-75 10/01/2021 10/01/2020, 07/10/2019, 06/23/2018, Additional history exists DIABETES-FOOT EXAM 01/14/2022 01/14/2021, 0 11/07/2019, 01/01/2019, Additional history exists CKD PHOS USE SMARTSET 67333 03/12/202202/24, 11/17/2020, 12/24/2019, Additional history exists DIABETES-URINE MICROALBUMIN EVERY 12 MONTHS 03/12/2022 03/12/2021, 03/12/2021, 12/24/2019, Additional history exists CKD HGB USE SMARTSET 21162 03/20/202203/20, 03/20/2021, 03/12/2021, Additional history exists DIABETES-EYE [...] Documents on File Type Date Recorded Patient Other Sports Coach Or Instructor Expl 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 Camp Other Health Care Hayden r of Airport Engineer [phone] ([place]) Princess Allen Other Health Care Pow er of Airport Engineer
--- OUTSIDE RECORDS SUMMARY | 2023-06-01 04:59 | External Medical Summary | Summary of Care ---
Author Name Unknown Organization [place] [address] Care Team Providers Care Desktop Support Technician Name Role Phone Kevin Whiteside DO Primary Care Provider Reason for Visit * Reason Comments eRx-Medication Refill Encounter Details Date Type Department Care Team Description 04/20/2021 Refill Cardiology, [facility] [address] [facility] [place] [address] Dimitri Miles MD [address] [facility] [place] [address] Chronic diastolic congestive heart failure (HCC) [...] as of this encounter (statuses as of 04/20/2021) Medications Medication Sig Dispensed Refills Start Date [...] 0 0 Active Blood Glucose Monitoring Suppl (ScramblerMail ULTRA 2) w/Device KIT Use to test BG values 1 Kit 0 0 Active Glucose Blood ([employer]omics[employer]OUCH ULTRA BLUE) STRP Check sugars 3-4 times [...] mouth daily. 90 Tab 0 0 Active Levothyroxine Sodium 200 MCG Oral Tablet (LEVOXYL)Indication s:Postsurgical hypothyroidism TAKE ONE TABLET BY MOUTH IN THE MORNING AT LEAST 30 MINUTES PRIOR TO BREAKFAST OR OTHER MEDS 90 Tab 1 0 Active DULoxetine HCl 30 MG Oral Capsule Delayed Release Particles (CYMBALTA) TAKE ONE CAPSULE BY MOUTH DAILY. take with 60mg capsule for total of 90mg 90 Cap 1 1 Active DULoxetine HCl 60 MG Oral Capsule [...] tab daily 45 Tab 1 1 Active traMADol HCl 50 MG Oral Tablet (Ultram)Indications :Chronic pain syndrome Take 1 Tab by mouth every 8 hours as needed for Pain, Severe. 90 Tab 0 1 Active Dicyclomine HCl 20 MG Oral Tablet (Bentyl) Take 1 Tab by mouth 4 times a day as needed for Pain, Mild. For abdominal pain 120 Tab 11 1 Active Nortriptyline HCl 50 MG Oral Capsule (Pamelor)Indication s:Fibromyalgia Take 1 Cap by mouth at bedtime. 90 Cap 1 1 Active Gabapentin 300 MG Oral Capsule (Neurontin)Indicati ons:Type 2 diabetes mellitus with hemoglobin A1c goal of 7.0%-8.0% (HCC) TAKE ONE CAPSULE BY MOUTH THREE TIMES DAILY 270 Cap 3 1 Active Additional Information Patient taking differently: 300 [...] goal of 7.0%-8.0% ([facility]) Inject 3 mg under the skin [...] > 150. 121 mL 3 1 Active clonazePAM 0.5 MG Oral Tablet (KlonoPIN)Indicatio ns:Anxiety state Take 1 Tab by mouth 2 times a day. 60 Tab 0 1 Active Furosemide 40 MG Oral Tablet (Lasix)Indications: Chronic diastolic congestive heart failure (HCC) Take 0.5 Tabs by mouth 2 times a day. May take an additional 20 mg 2 to 3 days per week as needed for worsening swelling 135 Tab 3 1 Active Furosemide 40 MG Oral Tablet (Lasix)Indications: Chronic diastolic congestive heart failure (HCC) Take 0.5 Tabs by mouth 2 times a day. 180 Tab 3 1 04/20/20 21 Discontinued documented as of this encounter (statuses as of 04/20/2021) Active Problems Problem Noted Date Hypotension 12/19/2020 [...] as of this encounter (statuses as of 04/20/2021) Resolved Problems Problem Noted Date Resolved Date [...] as of this encounter (statuses as of 04/20/2021) Immunizations Name Administration Dates Next Due COVID-19 mRNA, LNP-s, No Pre serve, 2-Dose Series ([employer]) 12/29/2020,12/18/2020 Pneumococcal Polysaccharide PPV23 (Pneumovax) 08/22/2009,06/15/2006 Seasonal [...] encounter Miscellaneous Notes * Telephone Encounter - Dimitri Miles MD - 04/20/2021 5:02 PM EDT Signed Prescriptions: Disp Refills Furosemide 40 MG Oral Tablet (Lasix) 135 Tab3 Sig: Take 0.5 Tabs by mouth 2 times a day. May take an additional 20 mg 2 to 3 days per week as needed for worsening swelling Authorizing Provider: DIMITRI MILES * Telephone Encounter - Tasha Cartwright RN - 04/20/2021 4:04 PM EDT Pending Prescriptions: Disp Refills Furosemide 40 MG Oral Tablet (Lasix) [Pha*135 Tab3 Sig: Take 0.5 Tabs by mouth 2 times a day. May take an additional 20 mg 2 to 3 days per week as needed for worsening swelling * Telephone Encounter - Tasha Cartwright LEXI Amor - 04/20/2021 4:01 PM EDT Pending Prescriptions: Disp Refills Furosemide 40 MG Oral Tablet (Lasix) [Pha*180 Tab0 Sig: TAKE TWO TABLETS BY MOUTH DAILY Last Office/Telemedicine Visit: 02/02/2021 Next Office Visit: 10/05/2021 Scheduled Provider(s): Dimitri Miles MD If no future appointments scheduled, and last appointment is greater than a year ago, please schedule patient for a follow-up appointment Last date the medication was ordered: Pharmacy: [id number] Is this request for a controlled [...] Specialty Care Team Description 04/22/2021 Home Visit [facility] Don Tomas MD [address] [facility] [place] [address] [phone] 04/23/2021 Hospital Encounter Surgery Raj Ahn, [address] [place] [address] [phone] 04/23/2021 Surgery Surgery Raj Ahn DO [address] [place] [address] [phone] INJECTION SPINE LUMBAR OR SACRAL 04/29/2021 Home Visit [facility] Vera Capellan RN [address] [place] [address] [phone] 05/20/2021 Office Visit Pharmacy [facility] [address] [place] [address] 05/26/2021 Home Visit Family Medicine Magaly Morales, Community Health Workers Compensation Claims Adjuster [address] [place] [address] [phone] 05/27/2021 Home Visit [facility] Rema Real LSW [address] [place] [address] [phone] 07/20/2021 Office Visit Family Medicine Kevin Whiteside DO [address] [place] [address] [phone] 08/18/2021 Office Visit Sleep Disorders Celsa Tafoya CRNP [address] [place] [address] [phone] 10/05/2021 Office Visit Cardiology Dimitri Miles MD [address] [place] [address] Health Maintenance Due Date Last Done Comments Pneumococcal Vaccine: 65+ Years (2 of 2) 2020 08/22/2009, 06/15/2006 DIABETES-HGBA1C EVERY 6 MONTHS 05/17/2021 11/17/2020, 01/23/2020, 11/07/2019, Additional history exists Influenza Vaccine (FLU shot) (#1) 2021 06/13/2020, 07/23/2019, 06/12/2018, Additional history exists CKD GFR USE SMARTSET 12319 09/19/202103/20, 03/12/2021, 12/25/2020, Additional history exists BREAST CANCER SCREENING DISCUSSION YEARLY AGES 40-75 10/01/2021 10/01/2020, 07/10/2019, 06/23/2018, Additional history exists DIABETES-FOOT EXAM 01/14/2022 01/14/2021, 0 11/07/2019, 01/01/2019, Additional history exists CKD PHOS USE SMARTSET 87336 03/12/202202/24, 11/17/2020, 12/24/2019, Additional history exists DIABETES-URINE MICROALBUMIN EVERY 12 MONTHS 03/12/2022 03/12/2021, 03/12/2021, 12/24/2019, Additional history exists CKD HGB USE SMARTSET 75310 03/20/202203/20, 03/20/2021, 03/12/2021, Additional history exists DIABETES-EYE [...] Documents on File Type Date Recorded Patient 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
--- OUTSIDE RECORDS SUMMARY | 2023-06-01 04:59 | External Medical Summary | Summary of Care ---
Author Name Unknown Organization [place] [address] Care Team Providers Care Surveillance Observer Name Role Phone Kevin Whiteside DO Primary Care Provider Reason for Visit * Reason Comments [facility]: Maintenance Encounter Details Date Type Department Care Team Description 04/29/2021 Home Visit [facility], [facility] [address] [facility] [place] [address] Vera Capellan RN [address] [facility] [place] [address] [phone] Benign hypertensive heart and kidney disease with [...] as of this encounter (statuses as of 04/29/2021) Medications Medication Sig Dispensed Refills Start Date [...] 0 04/08/2020 Active Blood Glucose Monitoring Suppl ([employer] BioscienceTOUCH ULTRA 2) w/Device KIT Use to [...] 04/14/2021 Active Furosemide 40 MG Oral Tablet (Lasix)Indications:Ch [...] Pain, Severe. 90 Tab 0 04/27/2021 Active documented as of this encounter (statuses as of 04/29/2021) Active Problems Problem Noted Date Hypotension 12/19/2020 [...] 10/14/2014 Overview: ICD-10 update of inactive term [place] filter in place 08/19/2014 History of pulmonary embolus (PE) 2013 Statin intolerance 07/16/2014 HTN, goal below 130/80 02/22/2014 Venous insufficiency 02/07/2013 ELISSA (obstructive sleep apnea) 09/16/2011 Overview: CPAP 11 cwp Mild, AHI 11.3 but with significant nocturnal hypoxemia Dicks Postsurgical hypothyroidism 06/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 documented as of this encounter (statuses as of 04/29/2021) Resolved Problems Problem Noted Date Resolved Date [...] as of this encounter (statuses as of 04/29/2021) Immunizations Name Administration Dates Next Due COVID-19 mRNA, LNP-s, No Pre serve, 2-Dose Series ([employer]) 12/29/2020,12/18/2020 Pneumococcal Polysaccharide PPV23 (Pneumovax) 08/22/2009,06/15/2006 Seasonal [...] Sign Reading Time Taken Comments Blood Pressure 96/60 04/29/2021 12:34 PM EDT Pulse 87 04/29/2021 12:29 PM EDT Temperature 36.8 C (98.3 F) 04/29/2021 12:29 PM E DT Respiratory Rate 18 04/29/2021 12:29 PM EDT Oxygen Saturation 92% 04/29/2021 12:29 PM EDT Inhaled Oxygen Concentration - - Weight - - Height - - Body Mass Index - - documented in this encounter Progress Notes * Vera Capellan RN - 04/29/2021 1:00 PM EDT [facility] ROSA #3 Visit Date: 04/29/2021 Time: 12:29 PM Name: Stephanie Camp : 1955 Current Concerns: Pt seen for ROSA #3 Admitted to [facility] 04/01-04/09 for fall d/t orthostatic hypotension Continues to go to outpatient PT at [facility] - has appt there this afternoon Decreasing neurontin - last visit was down to BID from TID - she is still taking BID but is going to decrease to once a day States "nervive" supplement has really been helping with her pain Dizziness has decreased - she states she has only been dizzy "once in awhile" Blood sugars have been good lately- reports they have been down in the low 100's. Blood sugar was 288 this am - forgot to take insulin earlier this am Injection for back pain scheduled for 05/14 - had to reschedule from last week - pt reports she had food poisoning from eating catfish and was vomiting and had diarrhea - had to cancel appt Pt denies any concerns today. Physical Exam: BP 96/60 (BP Position: Standing) | Pulse 87 | Temp 36.8 C (98.3 F) | Resp 18 | LMP 03/11/2003 |SpO2 92% Pain 0 Physical Exam Constitutional: General: She [...] Review of Systems Constitutional: Negative. HENT: Negative. Respiratory: Positive for shortness of breath (AVENDAÑO - at baseline). Cardiovascular: Positive for leg swelling. Gastrointestinal: Negative. Genitourinary: Negative. Musculoskeletal: Positive for arthralgias and back pain. Skin: Negative. Neurological: Positive for dizziness ("once in a while"). Hematological: Negative. Psychiatric/Behavioral: Negative. Medication Reconciliation: (See medication list) Does patient take medications as ordered: Yes Patient Well Being: PHQ2/9: No questionnaires available. No change in living situation. Denies any recent falls Continues to see psychologist for depression - has no concerns at this time. Advanced Care Planning: POLST. Patient's Goals of [...] and day prn cpap with 2l qhs Apap and topical pain relievers for pain Can also take flexeril prn back pain No NSAIDS Low na, ccd diet, 1.5L fluid restriction Ck bsgs and record tid- followed by [facility] clinic Wear b/l le support hose-on day/off night Per cardio - may take additional Lasix for 2-3 days for increased edema if needed SW assisting to get more help in the home Meclizine prn for vertigo Zofran prn nausea Outpatient PT at [facility] to start on 04/20 Flonase for allergie symptoms Do not take Benadryl - get Claritin for allergies Home Interventions Provided: Home Intervention: Other; Evaluation Reinforced current Plan of Care, including self-management and medication regimen Patient's 'Red Flags': 1. Increased SOB 2. Increased edema 3. Worsening pain Patient Needs to Remember: Call [facility] at with any new or worsening health concerns or problems, red flag symptoms. Referrals Needed: Other none Follow Up: Patient encouraged to call the intake phone number for all urgent but not emergent issues. Is the patient new to [employer] [facility] [facility] within the last 30 days? No, Assess appropriateness for upcoming telehealth visits. Cancel telehealth visits & schedule home visit with care steam conditioner operator(s)as indicated. Provider is in agreement with Plan of Care: Yes Scheduled to follow up with patient in 3 weeks with LES and 3 weeks after with CORI. Vera Capellan RN 04/29/2021 12:29 PM documented in this encounter Plan of Treatment Upcoming Encounters Date Type Specialty Care Team Description 05/14/2021 Hospital Encounter Surgery Raj Ahn DO [address] [place] [address] [phone] 05/14/2021 Surgery Surgery Raj Ahn DO [address] [place] [address] [phone] INJECTION SPINE LUMBAR OR SACRAL 05/20/2021 Office Visit Pharmacy [facility] [place] [address] [place] [address] 05/26/2021 Home Visit Family Medicine Magaly Morales, Community Health Geriatric Nurse Assistant [address] [place], [place] [id number] 05/27/2021 [facility] Visit [facility] Rema Real LSW [address] [facility] [place] [address] [phone] 06/16/2021 Home Visit [facility] Vera Capellan, RN [address] [facility] [place] [address] [phone] 07/20/2021 Office Visit Family Medicine Kevin Whiteside DO [address] [place] [address] [phone] 08/18/2021 Office Visit Sleep Disorders Celsa Tafoya CRNP [address] [place] [id number] 10/05/2021 Office Visit Cardiology Rey Woodall MD [address] [facility] [place] [address] Health Maintenance Due Date Last Done Comments Pneumococcal Vaccine: 65+ Years (2 of 2) 2020 08/22/2009, 06/15/2006 DIABETES-HGBA1C EVERY 6 MONTHS 05/17/2021 11/17/2020, 01/23/2020, 11/07/2019, Additional history exists Influenza Vaccine (FLU shot) (#1) 2021 06/13/2020, 07/23/2019, 06/12/2018, Additional history exists CKD GFR USE SMARTSET 58896 09/19/202103/20, 03/12/2021, 12/25/2020, Additional history exists BREAST CANCER SCREENING DISCUSSION YEARLY AGES 40-75 10/01/2021 10/01/2020, 07/10/2019, 06/23/2018, Additional history exists DIABETES-FOOT EXAM 01/14/2022 01/14/2021, 0 11/07/2019, 01/01/2019, Additional history exists CKD PHOS USE SMARTSET 33828 03/12/202202/24, 11/17/2020, 12/24/2019, Additional history exists DIABETES-URINE MICROALBUMIN EVERY 12 MONTHS 03/12/2022 03/12/2021, 03/12/2021, 12/24/2019, Additional history exists CKD HGB USE SMARTSET 02666 03/20/202203/20, 03/20/2021, 03/12/2021, Additional history exists DIABETES-EYE [...] class 1 and CKD stage 3 (HCC) Lumbar radiculopathy Thoracic or lumbosacral neuritis or radiculitis, unspecified documented in this encounter Advance Directives Documents on File Type Date Recorded Patient Iron Miner Expl 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 Camp Other Health Care Hayden r of Director Of Managed Services Princess Allen Other Health Care Pow er of Director Of Managed Services
--- OUTSIDE RECORDS SUMMARY | 2023-06-01 05:00 | External Medical Summary | Summary of Care ---
Author Name Unknown Organization [place] [address] Care Team Providers Care Bobbin Presser Name Role Phone Kevin Whiteside DO Primary Care Provider Reason for Visit * Reason Comments [facility]: Maintenance Encounter Details Date Type Department Care Team Description 04/15/2021 Home Visit [facility], [facility] 132 [facility] [place] [address] Vera Capellan RN 132 [facility] [place] [address] [phone] Benign hypertensive heart and kidney disease with [...] as of this encounter (statuses as of 04/15/2021) Medications Medication Sig Dispensed Refills Start Date [...] 0 04/08/2020 Active Blood Glucose Monitoring Suppl ([employer]CH ULTRA 2) w/Device KIT Use to test [...] goal of 7.0%-8.0% ([facility]) Inject 3 mg under the [...] as of this encounter (statuses as of 04/15/2021) Active Problems Problem Noted Date Hypotension 12/19/2020 [...] 10/14/2014 Overview: ICD-10 update of inactive term [place] filter in place 08/19/2014 History of pulmonary embolus (PE) 2013 Statin intolerance 07/16/2014 HTN, goal below 130/80 02/22/2014 Venous insufficiency 02/07/2013 ELISSA (obstructive sleep apnea) 09/16/2011 Overview: CPAP 11 cwp Mild, AHI 11.3 but with significant nocturnal hypoxemia Dicks Postsurgical hypothyroidism 06/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 documented as of this encounter (statuses as of 04/15/2021) Resolved Problems Problem Noted Date Resolved Date [...] as of this encounter (statuses as of 04/15/2021) Immunizations Name Administration Dates Next Due COVID-19 mRNA, LNP-s, No Pre serve, 2-Dose Series ([employer]) 12/29/2020,12/18/2020 Pneumococcal Polysaccharide PPV23 (Pneumovax) 08/22/2009,06/15/2006 Seasonal [...] Sign Reading Time Taken Comments Blood Pressure 96/56 04/15/2021 1:38 PM EDT Pulse 90 04/15/2021 1:34 PM EDT Temperature 35.8 C (96.4 F) 04/15/2021 1:34 PM ED T Respiratory Rate 18 04/15/2021 1:34 PM EDT Oxygen Saturation 91% 04/15/2021 1:34 PM EDT Inhaled Oxygen Concentration - - Weight - - Height - - Body Mass Index - - documented in this encounter Progress Notes * Vera aCpellan RN - 04/15/2021 1:12 PM EDT [facility] Manager [employer] ROSA #2 Visit Date: 04/15/2021 Time: 1:12 PM Name: Stephanie Camp : 1955 Current Concerns: Pt seen for ROSA #2 Admitted to [facility] 04/01 -04/09 for fall d/t orthostatic hypotension Head CT and MRI was negative, as well as echocardiogram She was given Midodrine and IV bolus in ER and continued to be hypotensive so was admitted It was recommended that she discharge to rehab facility but was denied [facility] She was going to have HH with [facility] for PT but pt request outpatient PT at [facility] and this has been ordered - she starts on Friday 04/20 She had OV with PCP yesterday - it was discussed how meds may attribute to fall and hypotension butpt is strongly resisting cutting any meds out d/t her chronic pain She has been taking "nervine" for neuropathy pain and PCP is working with pt to decrease neurontin - pt reports that she did decrease neurontin to bid instead of tid Pt also has great difficulty with wt loss management as well There were no med changes when discharged home from hospital. Today pt reports she has some dizziness today and feels "stuffy from allergies" She did take meclizine just prior to visit Checked bp sitting 106/68 and standing was 96/56 She reports "a little" dizzy with standing up Blood sugars have been ranging in the 100's - pt reports she has not had any above 200 since home from hospital Continues with chronic back pain - scheduled for injection next week. Physical Exam: BP 96/56 (BP Position: Standing) | Pulse 90 | Temp 35.8 C (96.4 F) | Resp 18 | LMP 03/11/2003 |SpO2 91% Pain 0 Physical Exam Constitutional: Appearance: She is obese. HENT: Nose: Nose normal. Cardiovascular: Rate and Rhythm: Normal rate and regular rhythm. Pulses: Normal pulses. Heart sounds: Normal heart sounds. Pulmonary: Effort: Pulmonary effort is normal. Breath sounds: Normal breath sounds. Abdominal: General: Bowel sounds are normal. Palpations: Abdomen is soft. Musculoskeletal: Right lower leg: Edema (trace) present. Left lower leg: Edema (+1) present. Skin: General: Skin is warm and dry. Neurological: Mental Status: She is alert and oriented to person, place, and time. Psychiatric: Mood and Affect: Mood normal. Behavior: Behavior normal. Thought Content: Thought content normal. Judgment: Judgment normal. Problems/Symptoms: Review of Systems Constitutional: Positive for fatigue. HENT: Negative. Eyes: Negative. Respiratory: Positive for shortness of breath (AVENDAÑO - at baseline). Cardiovascular: Positive for leg swelling. Gastrointestinal: Negative. Musculoskeletal: Positive for arthralgias, back pain and gait problem. Skin: Negative. Allergic/Immunologic: Positive for environmental allergies. Neurological: Positive for dizziness (mild today - with position change) and weakness ("legs get tired"). Psychiatric/Behavioral: Negative. Medication Reconciliation: (See medication list) Does patient take medications as ordered: Yes Patient Well Being: PHQ2/9: No questionnaires available. No change in living situation. Denies any falls since home from hospital. Mahc-10 score is 7. Pt reports depression "has been ok" - going to reschedule appt missed with psychologist Advanced Care Planning: POLST. Patient's Goals of [...] Ck bsgs and record tid- followed by [facility] Wear b/l le support hose-on day/off [...] Worsening pain Patient Needs to Remember: Call [facility] at with any new or worsening health concerns or problems, red flag symptoms. Referrals Needed: Other none Follow Up: Patient encouraged to call the intake phone number for all urgent but not emergent issues. Is the patient new to [facility] within the last 30 days? No, Assess appropriateness for upcoming telehealth visits. Cancel telehealth visits & schedule home visit with care care team assistant(s)as indicated. Provider is in agreement with Plan of Care: Yes Scheduled to follow up with patient per ROSA schedule. Vera Capellan RN 04/15/2021 1:12 PM documented in this encounter Plan of Treatment Upcoming Encounters Date Type Specialty Care Team Description 04/15/2021 Pharmacy Pharmacy [facility] [address] [place] [address] Uncontrolled type 2 diabetes mellitus with stage 3 chronic kidney disease, with long-term current use of insulin (HCC)*; Type 2 diabetes mellitus with hemoglobin A1c goal of 7.0%-8.0% (HCC) 04/17/2021 Home Visit [facility] Rema Real, ELISABET [address] [place] [address] [phone] 04/22/2021 Home Visit [facility] Don Tomas MD [address] [place] [address] [phone] 04/23/2021 Hospital Encounter Surgery Raj Ahn DO [address] [place] [address] [phone] 04/23/2021 Surgery Surgery Raj Ahn DO [address] [place] [address] [phone] INJECTION SPINE LUMBAR OR SACRAL 04/29/2021 Home Visit [facility] Vera Capellan RN [address] [place] [address] [phone] 05/20/2021 Office Visit Pharmacy [facility] Jeramie [address] [place] [address] 05/26/2021 Home Visit Family Medicine Magaly Morales, Community Health Distribution Tech [address] [place] [address] [phone] 07/20/2021 Office Visit Family Medicine Kevin Whiteside DO [address] [place] [address] [phone] 08/18/2021 Office Visit Sleep Disorders Celsa Tafoya CRNP [address] [place] [address] [phone] 10/05/2021 Office Visit Cardiology Rey Woodall MD [address] [place] [address] [phone] Health Maintenance Due Date Last Done Comments Pneumococcal Vaccine: 65+ Years (2 of 2) 2020 08/22/2009, 06/15/2006 DIABETES-HGBA1C EVERY 6 MONTHS 05/17/2021 11/17/2020, 01/23/2020, 11/07/2019, Additional history exists Influenza Vaccine (FLU shot) (#1) 2021 06/13/2020, 07/23/2019, 06/12/2018, Additional history exists CKD GFR USE SMARTSET 44022 09/19/202103/20, 03/12/2021, 12/25/2020, Additional history exists BREAST CANCER SCREENING DISCUSSION YEARLY AGES 40-75 10/01/2021 10/01/2020, 07/10/2019, 06/23/2018, Additional history exists DIABETES-FOOT EXAM 01/14/2022 01/14/2021, 0 11/07/2019, 01/01/2019, Additional history exists CKD PHOS USE SMARTSET 48929 03/12/202202/24, 11/17/2020, 12/24/2019, Additional history exists DIABETES-URINE MICROALBUMIN EVERY 12 MONTHS 03/12/2022 03/12/2021, 03/12/2021, 12/24/2019, Additional history exists CKD HGB USE SMARTSET 00123 03/20/202203/20, 03/20/2021, 03/12/2021, Additional history exists DIABETES-EYE [...] as of this encounter Visit Diagnoses Diagnosis Uncontrolled type 2 diabetes mellitus with stage 3 chronic kidney disease, with long-term current use of insulin (HCC)- Primary Type 2 diabetes mellitus with hemoglobin A1c goal of 7.0%-8.0% (HCC) 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
--- OUTSIDE RECORDS SUMMARY | 2023-06-01 05:00 | External Medical Summary | Summary of Care ---
Author Name Unknown Organization [facility] Address [place] [address] Care Team Providers Care District Court Reporter Name Role Phone Kevin Whiteside DO Primary Care Provider Reason for Visit * Reason Onset Date Comments [facility]: Maintenance 04/10/2021 Encounter Details Date Type Department Care Team Description 04/10/2021 Telephone [facility], [facility] 132 [facility] [place] [id number] [facility], Nurse [facility] 132 [facility] [place] [id number] [facility]: Maintenance Allergies Active Allergy Reactions Severity Noted Date Comments Codeine 07/08/2014 hallucination Pollen 05/18/2019 Heparin 09/04/2009 Heparin Induced Thrombocytopenia Hydrocodone Neuro complications (Please comment) 07/28/2020 Empagliflozin Other (Please comment) Medium 05/17/2018 3 yeast infections in 6 weeks after starting Morphine And Related 09/16/1997 Hallucinations Tetanus Toxoid Other (Please comment) 06/15/2011 Passed out documented as of this encounter (statuses as of 04/10/2021) Medications Medication Sig Dispensed Refills Start Date [...] 0 04/08/2020 Active Blood Glucose Monitoring Suppl ([employer]NC ULTRA 2) w/Device KIT Use to test [...] [facility]) Inject 60 Units under the skin daily. [...] TIMES DAILY 270 Cap 3 02/24/2021 Active clonazePAM 0.5 MG Oral Tablet (KlonoPIN)Indications :Anxiety state Take 1 Tab by mouth 2 times a day. 60 Tab 0 03/02/2021 Active Cyclobenzaprine HCl 10 MG Oral Tablet (Flexeril)Indications :Spinal stenosis of lumbar region without neurogenic claudication,Lumbar radiculopathy TAKE ONE TABLET BY MOUTH AT BEDTIME NEEDED FOR SPASM 30 Tab 0 03/02/2021 Active Trulicity 3 MG/0.5ML Subcutaneous Solution Pen-injector (Dulaglutide)Indicati ons:Type 2 diabetes mellitus with hemoglobin A1c goal of 7.0%-8.0% ([facility]) Inject 3 mg under the skin once [...] > 150. 121 mL 3 03/20/2021 Active documented as of this encounter (statuses as of 04/10/2021) Active Problems Problem Noted Date Hypotension 12/19/2020 [...] as of this encounter (statuses as of 04/10/2021) Resolved Problems Problem Noted Date Resolved Date [...] as of this encounter (statuses as of 04/10/2021) Immunizations Name Administration Dates Next Due COVID-19 mRNA, LNP-s, No Pre serve, 2-Dose Series ([employer]) 12/29/2020,12/18/2020 Pneumococcal Polysaccharide PPV23 (Pneumovax) 08/22/2009,06/15/2006 [...] encounter Miscellaneous Notes * Telephone Encounter - Usman Trevizo, LEXI - 04/10/2021 10:26 AM EDT Patient calling to make us aware she is home from hospital so we can schedule follow up Patient aware appts already made for phone calls over the weekend, LES visit on Tuesday and discovery manager visit on Tue. Verbalized understanding. No other concerns at this time Homero Trevizo RN Small Business Consultant [facility] documented in this encounter Plan of Treatment Upcoming Encounters Date Type Specialty Care Team Description 04/11/2021 Scheduled Telephone [facility], Nurse [facility] [address] [place] [address] [phone] 04/12/2021 Scheduled Telephone [facility], Nurse [facility] [address] [place] [address] [phone] 04/14/2021 Office Visit Family Medicine Kevin Whiteside DO [address] [place] [address] [phone] 04/14/2021 Home Visit Family Medicine Magaly Morales, Community Health Budget Assistant [address] [place] [address] [phone] 04/15/2021 Home Visit [facility] Brooke Jose RN [address] [place] [address] [phone] 04/15/2021 Pharmacy Pharmacy [facility] [address] [place] [address] 04/17/2021 Home Visit [facility] Rema Real LSW [address] [place] [address] [phone] 04/22/2021 Home Visit [facility] Don Tomas MD [address] [place] [address] [phone] 04/23/2021 Hospital Encounter Surgery Raj Ahn, DO [address] [place] [address] [phone] 04/23/2021 Surgery Surgery Raj Ahn, DO [address] [place] [address] [phone] INJECTION SPINE LUMBAR OR SACRAL 04/29/2021 Home Visit [facility] Vera Capellan RN [address] [place] [address] [phone] 07/20/2021 Office Visit Family Medicine Kevin Whiteside DO [address] [place] [address] [phone] 08/18/2021 Office Visit Pulmonary Celsa Tafoya CRNP [address] [place] [address] [phone] 10/05/2021 Office Visit Cardiology Rey Woodall MD [address] [place] [address] [phone] Health Maintenance Due Date Last Done Comments Pneumococcal Vaccine: 65+ Years (2 of 2) 2020 08/22/2009, 06/15/2006 DIABETES-EYE EXAM 04/07/2021 04/07/2020, , 02/24/2010 (Done elsewhere), Additional history exists DIABETES-HGBA1C EVERY 6 MONTHS 05/17/2021 11/17/2020, 01/23/2020, 11/07/2019, Additional history exists Influenza Vaccine (FLU shot) (#1) 2021 06/13/2020, 07/23/2019, 06/12/2018, Additional history exists CKD GFR USE SMARTSET 73455 09/19/202103/20, 03/12/2021, 12/25/2020, Additional history exists BREAST CANCER SCREENING DISCUSSION YEARLY AGES 40-75 10/01/2021 10/01/2020, 07/10/2019, 06/23/2018, Additional history exists DIABETES-FOOT EXAM 01/14/2022 01/14/2021, 0 11/07/2019, 01/01/2019, Additional history exists CKD PHOS USE SMARTSET 01402 03/12/202202/24, 11/17/2020, 12/24/2019, Additional history exists DIABETES-URINE MICROALBUMIN EVERY 12 MONTHS 03/12/2022 03/12/2021, 03/12/2021, 12/24/2019, Additional history exists CKD HGB USE SMARTSET 12908 03/20/202203/20, 03/20/2021, 03/12/2021, Additional history exists *DEPRESSION SCREENING,ANNUAL FOR PTS [...] Documents on File Type Date Recorded Patient Web Content & Social Media Manager Expl 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 Camp Other Health Care Hayden r of Organic Preparation Analyst Princess Allen Other Health Care Pow er of Organic Preparation Analyst
--- OUTSIDE RECORDS SUMMARY | 2023-06-01 05:00 | External Medical Summary | Summary of Care ---
Author Name Unknown Organization [place] [address] Care Team Providers Care Heading Saw Operator Name Role Phone Kevin Whiteside DO Primary Care Provider Reason for Visit * Reason Comments [facility]: Maintenance Encounter Details Date Type Department Care Team Description 04/14/2021 Home Visit Care Coordination [address] [place] [address] Magaly Morales, Community Health Public Relations Analyst [address] [place], [place] [id number] Benign hypertensive heart and kidney disease with [...] as of this encounter (statuses as of 04/14/2021) Medications Medication Sig Dispensed Refills Start Date [...] 0 04/08/2020 Active Blood Glucose Monitoring Suppl ([employer] ULTRA 2) w/Device KIT Use to test [...] TIMES DAILY 270 Cap 3 02/24/2021 Active Cyclobenzaprine HCl 10 MG Oral Tablet (Flexeril)Indications :Spinal stenosis of lumbar region without neurogenic claudication,Lumbar radiculopathy TAKE ONE TABLET BY MOUTH AT BEDTIME NEEDED FOR SPASM 30 Tab 0 03/02/2021 Active Trulicity 3 MG/0.5ML Subcutaneous Solution Pen-injector (Dulaglutide)Indicati ons:Type 2 diabetes mellitus with hemoglobin A1c goal of 7.0%-8.0% ([facility]) Inject 3 mg under the skin [...] as of this encounter (statuses as of 04/14/2021) Active Problems Problem Noted Date Hypotension 12/19/2020 [...] as of this encounter (statuses as of 04/14/2021) Resolved Problems Problem Noted Date Resolved Date [...] as of this encounter (statuses as of 04/14/2021) Immunizations Name Administration Dates Next Due COVID-19 [...] Reading Time Taken Comments Blood Pressure 118/60 04/14/2021 1:37 PM EDT Pulse 90 04/14/2021 1:37 PM EDT Temperature 35.9 C (96.6 F) 04/14/2021 1:37 PM ED T Respiratory Rate 20 04/14/2021 1:37 PM EDT Oxygen Saturation 95% 04/14/2021 1:37 PM EDT Inhaled Oxygen Concentration - - Weight - - Height - - Body Mass Index - - documented in this encounter Progress Notes * Magaly Morales, Community Health Public Relations Analyst - 04/14/2021 1:10 PM EDT Community Health Public Relations Analyst Visit Date: 04/14/2021 Time: 1:11 PM Name: Stephanie Camp : 1955 Referral Source: framing manager Source of Information: Patient Spoken language: kittitian Patient can read in Citizen Of [place]: Yes. Spray Operator needed: No. COVID-19 screening completed: Yes Vitals: Vital signs completed: Yes, vital signs within normal range. BP 118/60 (BP Site: Right Arm, BP Position: Sitting) | Pulse 90 | Temp 35.9 C (96.6 F) | Resp 20 | LMP 03/11/2003 | SpO2 95% Condition Changes: Changes in health or social status since last visit: NO Felling ok Denies falls since being home Dizziness on and off SOB with ambulation The patient has new concerns since last visit: No Medications: Medication review completed? No, - Does the patient have barriers to medication adherence? No. Patient reports difficulty paying for medications or might in the future: No. Telehealth: This is a telehealth visit: No. Symptoms Surveys and Evaluations: MAHC10 completed this visit: Yes. Score is greater than 4? Yes, notified Provider/Personalized Living Manager Last flowsheet values for MAHC10: Age 65+: 1 (04/14/2021 1:00 PM) Diagnosis (3 or more co-existing): 1 (04/14/2021 1:00 PM) Prior history of falls within 3 months: 1 (04/14/2021 1:00 PM) Incontinence: 0 (04/14/2021 1:00 PM) Visual impairment: 0 (04/14/2021 1:00 PM) Impaired functional mobility: 1 (04/14/2021 1:00 PM) Environmental hazards: 1 (04/14/2021 1:00 PM) Poly Pharmacy (4 or more prescriptions - any type): 1 (04/14/2021 1:00 PM) Pain affecting level of function: 1 (04/14/2021 1:00 PM) Cognitive impairment: 0 (04/14/2021 1:00 PM) Score - a score of 4 or more is considered at risk for fallin (04/14/2021 1:00 PM) Transition of Care: Diabetes Survey Blood glucose testing review: The patient has a glucometer: Yes, + Patient tests their blood sugar 3 times a day Over the past two weeks blood sugar range: Mornin-179 Before lunch: 158-180 Before dinner: 163-215 Lowest: 158 Highest: 215 Patient complains/reports: Dizziness/unsteadiness when walking. Increased shortness of breath from baseline with activity Plan: Reinforced patient's three red flags by the care team Patient's 'Red Flags': 1. Fall with injury 2. Increased weakness YES PCP sending referral to [facility] 3. bsgs >350<80 Follow Up: Patient encouraged to call the intake phone number for all urgent but not emergent issues. Scheduled to follow up with patient in 6weeks Lisa Flores 04/14/2021 1:11 PM documented in this encounter Plan of Treatment Upcoming Encounters Date Type Specialty Care Team Description 04/15/2021 Home Visit [facility] Brooke Jose, RN [address] [place] [address] [phone] 04/15/2021 Pharmacy Pharmacy [facility] Jeramie [address] [place] [address] 04/17/2021 Home Visit [facility] Rema Real LSW [address] [place] [address] [phone] 04/22/2021 Home Visit [facility] Don Tomas MD [address] [place] [address] [phone] 04/23/2021 Hospital Encounter Surgery Cousins, Raj Nolen, DO [address] [place] [address] [phone] 04/23/2021 Surgery Surgery CousinRaj travis, DO [address] [place] [address] [phone] INJECTION SPINE LUMBAR OR SACRAL 04/29/2021 Home Visit [facility] Vera Capellan RN [address] [place] [address] [phone] 05/26/2021 Home Visit Family Medicine Magaly Morales, Community Health Public Relations Analyst [address] [place] [address] [phone] 07/20/2021 Office Visit Family Medicine Kevin Whiteside DO [address] [place] [address] [phone] 08/18/2021 Office Visit Pulmonary Celsa Tafoya CRNP [address] [place] [address] [phone] 10/05/2021 Office Visit Cardiology Rey Woodall MD [address] [place] [address] [phone] Health Maintenance Due Date Last Done Comments Pneumococcal Vaccine: 65+ Years (2 of 2) 2020 08/22/2009, 06/15/2006 DIABETES-EYE EXAM 04/07/2021 04/07/2020, , 02/24/2010 (Done elsewhere), Additional history exists DIABETES-HGBA1C EVERY 6 MONTHS 05/17/2021 11/17/2020, 01/23/2020, 11/07/2019, Additional history exists Influenza Vaccine (FLU shot) (#1) 2021 06/13/2020, 07/23/2019, 06/12/2018, Additional history exists CKD GFR USE SMARTSET 52130 09/19/202103/20, 03/12/2021, 12/25/2020, Additional history exists BREAST CANCER SCREENING DISCUSSION YEARLY AGES 40-75 10/01/2021 10/01/2020, 07/10/2019, 06/23/2018, Additional history exists DIABETES-FOOT EXAM 01/14/2022 01/14/2021, 0 11/07/2019, 01/01/2019, Additional history exists CKD PHOS USE SMARTSET 41989 03/12/202202/24, 11/17/2020, 12/24/2019, Additional history exists DIABETES-URINE MICROALBUMIN EVERY 12 MONTHS 03/12/2022 03/12/2021, 03/12/2021, 12/24/2019, Additional history exists CKD HGB USE SMARTSET 18824 03/20/202203/20, 03/20/2021, 03/12/2021, Additional history exists *DEPRESSION [...] Documents on File Type Date Recorded Patient Land Leveler Expl 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 Camp Other Health Care Hayden r of Gift Wrapper Princess Allen [facility] er of Gift Wrapper [phone] ([place])"
--- OUTSIDE RECORDS SUMMARY | 2023-06-01 05:00 | External Medical Summary | Summary of Care ---
Author Name Unknown Organization [place] [address] Care Team Providers Care Pre Coder Name Role Phone Kevin Whiteside DO Primary Care Provider Reason for Referral * Evaluate & Treat - Unlimited Visits (Within 10 days (routine)) Status Reason Specialty Diagnoses / Procedures Referred By Contact Referred To Contact Authorized Specialty Services Required Physical Therapy / Physical Medicine And Rehab Diagnoses Impaired ambulation Kevin Whiteside DO [address] [id number] Question Answer Referral Priority Within 10 days (routine) Comments Weakness with ambulation and need for strength with transfers Electronically signed by Kevin Whiteside DO at Reason for Visit * Reason Comments Hospital Follow-Up Pt discharged Rigo Capone on 04/09/2021 for fall due to Orthostatic hypotension. No change in meds per pt. Occasionally dizziness or lightheadedness. Pt using roller walker. 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 45 mL 3 12/18/2020 Active Furosemide 40 MG Oral Tablet (Lasix)Indications: [...] goal of 7.0%-8.0% ([facility]) TAKE ONE CAPSULE BY MOUTH [...] of 7.0%-8.0% ([facility]) Inject 3 mg under the [...] a day. 60 Tab 0 04/14/2021 Active clonazePAM 0.5 MG Oral Tablet (KlonoPIN)Indicatio ns:Anxiety state Take 1 Tab by mouth 2 times a day. 60 Tab 0 03/02/2021 1 Discontinue d(Refill) documented as of this [...] 10/14/2014 Overview: ICD-10 update of inactive term [place] filter in place 08/19/2014 History of pulmonary [...] Sign Reading Time Taken Comments Blood Pressure 122/68 04/14/2021 10:57 AM EDT Pulse 99 04/14/2021 10:57 AM EDT Temperature 35.9 C (96.7 F) 04/14/2021 10:57 AM E DT Respiratory Rate 20 04/14/2021 10:57 AM EDT Oxygen Saturation 95% 04/14/2021 10:57 AM EDT Inhaled Oxygen Concentration - - Weight 148.5 kg (327 lb 6 oz) 04/14/2021 10:57 A M EDT Height - - Body Mass Index 56.19 12/29/2020 9:29 AM EDT documented in this encounter Patient Instructions * Patient Instructions* Timothy Hortencia E, LPN - 04/14/2021 10:57 AM EDT Images from the original note were not included. Dear Stephanie Camp, The care of your Diabetes is very important to us. A yearly diabetic eye exam is important to protect your vision. If youre getting an eye exam done outside of [facility] please tell your Eye Doctor to fax or mail us the results of your Diabetic Eye Exam at your next visit. Our Address and Fax Number are listed below to help. Thank you for helping us to improve your Diabetes Care Our Office Address and Fax Number: Kevin Whiteside, [facility] [address] [facility] [address] Diabetic Retinopathy: Evaluating Your Eyes Diabetic retinopathy [...] information about this test. Date Last Reviewed: 02/25/201619993142-1536 [employer]. [address] [place] [address]. All rights reserved. This information is not intended as a substitute for professional medical care. Always follow your healthcare professional's instructions. documented in this encounter Progress Notes * Kevin Whiteside, - 04/14/2021 11:14 AM EDT Nursing Notes: Hortencia Aguirre LPN 04/14/21 1101 Signed The patient has been properly identified by confirmation of name and date of . Chief Complaint Patient presents with Hospital Follow-Up Pt discharged [facility] on 04/09/2021 for fall due to Orthostatic hypotension. No change in medsper pt. Occasionally dizziness or lightheadedness. Pt using roller walker. ASSESSMENT/PLAN: Hospital f/u Weight, DMII, meds, cardiovascular disease, and hydration status may all have played a roll in her fall and hypotension. We've discussed reducing her meds and cutting items out, but she has strongly resisted due to pain/neuropathy. I have educated her on the risks/benefits of these treatments and hope to continue to work towards less medications. On her end, the lack of weight loss and control over her factors that contribute to this have been the most difficult to overcome. 1. DM type 2 nursing care encounter (HCC) - TELEMEDICINE DIABETIC EYE 2. Impaired ambulation - PHYSICAL THERAPY REFERRAL OP 3. Type 2 diabetes mellitus with hemoglobin A1c goal of 7.0%-8.0% ([facility]) 4. Encounter for long-term (current) use of medications - TSH WITH FREE T4 IF INDICATED; Future - HEMOGLOBIN A1C; Future - BASIC METABOLIC PANEL; Future - LIPID PANEL WITH DIRECT LDL IF TG IS HIGH; Future - CBC WITH WBC DIFFERENTIAL AND ANEMIA REFLEX WORKUP; Future 5. Anxiety state - clonazePAM 0.5 MG Oral Tablet (KlonoPIN); Take 1 Tab by mouth 2 times a day. Dispense: 60 Tab; Refill: 0 6. Vasculitis ([facility]) 7. HTN, goal below 130/80 8. 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 Chronic diastolic congestive heart failure ([facility]) 10. Morbid obesity with BMI of 50.0-59.9, adult ([facility]) 11. ELISSA (obstructive sleep apnea) HPI: Stephanie Camp is a 66 year old female who: Presents in f/u today Was in hospital from fall/low BP BP recovered quickly They tried to find her SNF placement for short term rehab but no placement was available and she remained stable so was discharged home No medication changes were made b/c her sx resolved and BP was stable Today denies complaints and states that she doesn't know how to reduce meds Has been trying a new supplement called "nervine" that has taken away her nerve pain. I would like to see if we can reduce her gabapentin in light of this ROS: See HPI for pertinent ROS PHYSICAL EXAMINATION: BP 122/68 | Pulse 99 | Temp 35.9 C (96.7 F) | Resp 20 | Wt (!) 148.5 kg (327 lb 6 oz) | LMP 03/11/2003 | SpO2 95% | BMI 56.19 kg/m | BSA 2.59 m GENERAL: alert, healthy, no distress, well nourished [...] OUTSIDE LAB-CORONAVIRUS (COVID-19) Result Value Ref Range [id number] LAB NEGATIVE NEGATIVE *Note: Due to a [...] goal of 7.0%-8.0% ([facility]) E11.9 Fibromyalgia M79.7 Abnormality of gait R26.9 Restless legs syndrome G25.81 Gastroesophageal reflux disease with esophagitis K21.00 Morbid obesity with BMI of 50.0-59.9, adult ([facility]) E66.01, Z68.43 Controlled substance agreement signed Z79.899 Chronic diastolic congestive heart failure ([facility]) I50.32 Mild episode of recurrent major depressive disorder ([facility]) F33.0 Lumbar radiculopathy M54.16 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, NYHA class 1 and CKD stage 3 ([facility]) I13.0, I50.30, N18.30 Hyperparathyroidism, secondary renal ([facility]) N25.81 Vasculitis ([facility]) I77.6 Primary osteoarthritis of left knee M17.12 Spinal stenosis of lumbar region without neurogenic claudication M48.061 Hypotension I95.9 Past Medical History: Diagnosis Date ELSIE (acute kidney injury) (HCC) 06/12/2018 Allergic rhinitis due to other allergen Backache Diverticulosis of colon 01/28/06 DM type 2, not at goal (HCC) ELLIE (generalized anxiety disorder) 09/13/[address] in [address] 08/19/2014 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HCC) 08/22/2009 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HCC) 06/12/2018 History of pulmonary embolus (PE) 07/16/2014 HTN, goal below 140/90 Impetigo 09/27/2018 Obesity, BMI not known Perforation of intestine (HCC) 1996 COLON -- 1996 Pneumonia in aspergillosis(484.6) 09/14/2009 Spinal stenosis of lumbar region without neurogenic claudication 07/15/2020 Spontaneous pneumothorax 09/14/2009 Statin intolerance 07/16/2014 Type 2 diabetes mellitus with hemoglobin A1c goal of 7.0%-8.0% ([facility]) 10/14/2014 ICD-10 update of inactive term Vaginal karmen 07/13/2018 Past Surgical History: Procedure Laterality Date ARTHROPLASTY KNEE TOTAL Right 07/24/14 R COLONOSCOPY, DIAGNOSTIC (RECTUM) 02/18/2016 normal, repeat 10 yrs/[facility] COLONOSCOPY, GI REFERRAL OP 01/28/06 diverticulosis--repeat 10 years INCISION OF WINDPIPE, PLANNED 06/03/2011 TRACHEOSTOMY PLANNED performed by DANNY HOLDER at [place] [facility] INJECT DX/THER SUBSTANCE INTERLAMINAR LUMBAR/SACRAL W IMAGE GUIDE 05/26/2020 INJECTION SPINE LUMBAR OR SACRAL performed by Raj Ahn DO at OR [facility] KNEE ARTHROSCOPY/DEBRIDEMENT 07/[address] PERMANENT GASTROSTOMY TUBE 09/06/09 GASTROSTOMY WITH CONSTUCTION GASTRIC TUBE performed by AMADOU NUNEZ at OR [facility] REMOVAL OF THYROID GLAND 06/15/2011 THYROIDECTOMY INCLUDING SUBSTERNAL THYROID CERVICAL APPROACH performed by DANNY HOLDER at OR [facility] REMOVE GALLBLADDER 09/06/09 CHOLECYSTECTOMY performed by AMADOU NUNEZ at OR [facility] REPAIR RECURRENT INCISIONAL HERNIA 1998 REVISION OF COLOSTOMY, SIMPLE 1997 SACROILIAC JOINT INJECT W/GUIDANCE 07/28/2020 INJECTION SACROILIAC JOINT performed by Raj Ahn DO at OR [facility] SUTURE, LARGE INTESTINE W/COLOSTOMY 1996 perforation R colon with colostomy VENA CAVA FILTER/LIGATION/CLIP 08/19/09 Greenwood filter placement through the right femoral 08/19/[address] Lerma at [facility] Current Outpatient Medications Medication Sig Dispense Refill clonazePAM 0.5 MG Oral Tablet (KlonoPIN) Take 1 Tab by mouth 2 times a day. 60 Tab 0 Nerve Pain Relief Sublingual Tablet Sublingual Place under the tongue. Indications: pt taking Nervive, nerve relief tablets at bedtime NovoLOG FlexPen 100 UNIT/ML Subcutaneous Solution Pen-injector (insulin aspart) Inject 40 unitswith meals + sliding scale 1 units for every 25 units BG > 150. 121 mL 3 Trulicity 3 MG/0.5ML Subcutaneous Solution Pen-injector (Dulaglutide) Inject 3 mg under the skin once a week. 2 mL 5 Cyclobenzaprine HCl 10 MG Oral Tablet (Flexeril) TAKE ONE TABLET BY MOUTH AT BEDTIME NEEDED FOR SPASM 30 Tab 0 Gabapentin 300 MG Oral Capsule (Neurontin) TAKE ONE CAPSULE BY MOUTH THREE TIMES DAILY 270 Cap 3 Nortriptyline HCl 50 MG Oral Capsule (Pamelor) Take 1 Cap by mouth at bedtime. 90 Cap 1 Dicyclomine HCl 20 MG Oral Tablet (Bentyl) Take 1 Tab by mouth 4 times a day as needed for Pain, Mild. For abdominal pain 120 Tab 11 Colchicine 0.6 MG Oral Tablet Take 1/2 tab daily 45 Tab 1 traMADol HCl 50 MG Oral Tablet (Ultram) Take 1 Tab by mouth every 8 hours as needed for Pain, Severe. 90 Tab 0 traZODone HCl 50 MG Oral Tablet (Desyrel) TAKE ONE TABLET BY MOUTH AT BEDTIME 90 Tab 1 Levothyroxine Sodium 50 MCG Oral Tablet (Levoxyl) Take 1 Tab by mouth daily. (at least 30 min prior to breakfast or other meds) 30 Tab 11 Meclizine HCl 12.5 MG Oral Tablet (Antivert) Take 1 Tab by mouth 3 times a day as needed for Dizziness. 30 Tab 1 Furosemide 40 MG Oral Tablet (Lasix) Take 0.5 Tabs by mouth 2 times a day. 180 Tab 3 Tresiba FlexTouch 100 UNIT/ML Subcutaneous Solution Pen-injector (Insulin Degludec) Inject 60 Units under the skin daily. 45 mL 3 Acetaminophen 500 MG Oral Tablet (Acetaminophen Extra Strength) Take 500 mg by mouth every 6 hours as needed. rOPINIRole HCl 2 MG Oral Tablet (Requip) Take 1 Tab by mouth at bedtime. 90 Tab 3 DULoxetine HCl 30 MG Oral Capsule Delayed Release Particles (CYMBALTA) TAKE ONE CAPSULE BY MOUTH DAILY. take with 60mg capsule for total of 90mg 90 Cap 1 DULoxetine HCl 60 MG Oral Capsule Delayed Release Particles (CYMBALTA) Take 1 Cap by mouth daily. Along with 30 mg capsule to total 90 mg daily. 90 Cap 3 Levothyroxine Sodium 200 MCG Oral Tablet (LEVOXYL) TAKE ONE TABLET BY MOUTH IN THE MORNING AT LEAST 30 MINUTES PRIOR TO BREAKFAST OR OTHER MEDS 90 Tab 1 Magnesium Oxide 400 (241.3 Mg) MG Oral Tablet Take 400 mg by mouth daily. 90 Tab 0 BD Pen Needle Short U/F 31G X 8 MM (Insulin Pen Needle) Use 5 times daily with insulin 200 Each11 clobetasol propionate (TEMOVATE) 0.05 % cream Apply to rash on the hands and dorsal feet twice daily x 1 week, then as needed for flares. 30 g 1 Glucose Blood (ExplorysUCH ULTRA BLUE) STRP Check sugars 3-4 times daily, E11.9 400 Strip 3 Blood Glucose Monitoring Suppl (JasonDBTOUCH ULTRA 2) w/Device KIT Use to test BG values 1 Kit 0 DIURETIC TITRATION PLAN If no improvement on day 3, contact heart failure managing provider. 1 Each 0 ACCU-CHEK SOFTCLIX LANCETS MISC Test blood sugar three or four times daily as directed 400 Each3 omeprazole (PRILOSEC) 20 MG CPDR Take 1 Cap by mouth daily. 90 Cap 3 oxygen GAS 2 LPM bled through CPAP 11 cwp during all periods of sleep and 2 LPM via NC with exertion. ONETOUCH DELICA LANCETS 33G MISC Check blood sugars 3-4 times daily 180 Each 5 docusate sodium (STOOL SOFTENER) 100 MG Capsule Take 100 mg by mouth 2 times a day as needed for Constipation. Ondansetron HCl 4 MG Oral Tablet (Zofran) Take 1 Tab by mouth every 6 hours as needed for Nausea. 30 Tab 0 Review of patient's allergies indicates: Allergen Reactions Jardiance [Empagliflozin] Other (Please comment) 3 yeast infections in 6 weeks after starting Codeine hallucination Hay Fever [Pollen] Heparin Heparin Induced Thrombocytopenia Hydrocodone Neuro complications (Please comment) Morphine And Related Hallucinations Tetanus Toxoid Other (Please comment) Passed out Kevin Whiteside DO [facility] [address] [facility] [place] [address] I spent 35-45 minutes reviewing this patients [...] questions to the provider listed above.) * Hortencia Aguirre LPN - 04/14/2021 10:57 AM EDT The importance of having a yearly diabetic eye exam has been discussed with patient. Order and/or Referral placed along with patient instructions. Provider made aware. Hortencia Aguirre LPN documented in this encounter Nursing Notes * Hortencia Aguirre LPN - 04/14/2021 10:55 AM EDT The patient has been properly identified by confirmation of name and date of . Chief Complaint Patient presents with Hospital Follow-Up Pt discharged [facility] on 04/09/2021 for fall due to Orthostatic hypotension. No change in medsper pt. Occasionally dizziness or lightheadedness. Pt using roller walker. documented in this encounter Plan of Treatment Upcoming Encounters Date Type Specialty Care Team Description 04/14/2021 Home Visit Family Medicine Magaly Morales, [facility] [employer] [address] [place] [address] [phone] 04/15/2021 [facility] Visit [facility] Brooke Jose, RN [address] [facility] [address] [address] [phone] 04/15/[address] [facility] Jeramie [address] [place] [address] 04/17/2021 Home Visit [facility] Rema Real LSW [address] [place] [address] [phone] 04/22/2021 [facility] [address] [facility] [address] [phone] 04/23/2021 Hospital Encounter Surgery Raj Ahn, [address] [address] [phone] 04/23/2021 Surgery Surgery Raj Ahn DO [address] [place] [address] [phone] INJECTION SPINE LUMBAR OR SACRAL 04/29/2021 Home Visit [facility] Vera Capellan RN [address] [place] [address] [phone] 07/20/2021 Office Visit Family Medicine Kevin Whiteside DO [address] [address] [phone] 08/18/2021 Office Visit Pulmonary Celsa Tafoya CRNP [address] [place] [address] [phone] 10/05/2021 Office Visit Cardiology Rey Woodall MD [address] [place] [address] [phone] Scheduled Orders Name Type Priority Associated Diagnoses Orde r Schedule TSH WITH FREE T4 IF INDICATED Lab Routine Encounter for long-term (current) use of medications Expected: 04/14/2021 (Approximate), Expires: 04/14/2022 HEMOGLOBIN A1C Lab Routine Encounter for long-term (current) use of medications Expected: 04/14/2021 (Approximate), Expires: 04/14/2022 BASIC METABOLIC PANEL Lab Routine Encounter for long-term (current) use of medications Expected: 04/14/2021 (Approximate), Expires: 04/14/2022 LIPID PANEL WITH DIRECT LDL IF TG IS HIGH Lab Routine Encounter for long-term (current) use of medications Expected: 04/14/2021, Expires: 04/14/2022 CBC WITH WBC DIFFERENTIAL AND ANEMIA REFLEX WORKUP Lab Routine Encounter for long-term (current) use of medications Expected: 04/14/2021 (Approximate), Expires: 04/14/2022 Scheduled Referrals Name Type Priority Associated Diagnoses Orde r Schedule PHYSICAL THERAPY REFERRAL OP Referral Within 10 days (routine) Impaired ambulation Ordered: 04/14/2021 Health Maintenance Due Date Last Done Comments Pneumococcal Vaccine: 65+ Years (2 of 2) 2020 08/22/2009, 06/15/2006 DIABETES-EYE EXAM 04/07/2021 04/07/2020, , 02/24/2010 (Done elsewhere), Additional history exists DIABETES-HGBA1C EVERY 6 MONTHS 05/17/2021 11/17/2020, 01/23/2020, 11/07/2019, Additional history exists Influenza Vaccine (FLU shot) (#1) 2021 06/13/2020, 07/23/2019, 06/12/2018, Additional history exists CKD GFR USE SMARTSET 54298 09/19/202103/20, 03/12/2021, 12/25/2020, Additional history exists BREAST CANCER SCREENING DISCUSSION YEARLY AGES 40-75 10/01/2021 10/01/2020, 07/10/2019, 06/23/2018, Additional history exists DIABETES-FOOT EXAM 01/14/2022 01/14/2021, 0 11/07/2019, 01/01/2019, Additional history exists CKD PHOS USE SMARTSET 40002 03/12/202202/24, 11/17/2020, 12/24/2019, Additional history exists DIABETES-URINE MICROALBUMIN EVERY 12 MONTHS 03/12/2022 03/12/2021, 03/12/2021, 12/24/2019, Additional history exists CKD HGB USE SMARTSET 24555 03/20/202203/20, 03/20/2021, 03/12/2021, Additional history exists *DEPRESSION [...] Hospital discharge follow-up- Primary Other follow-up examination DM type 2 nursing care encounter (HCC) Type II or unspecified type diabetes mellitus without mention of complication, not stated as uncontrolled Impaired ambulation Type 2 diabetes mellitus with hemoglobin A1c goal of 7.0%-8.0% (HCC) Encounter for long-term (current) use of medications Encounter for long-term (current) use of other medications Anxiety state Anxiety state, unspecified Vasculitis (HCC) Arteritis, unspecified HTN, goal below 130/80 Unspecified essential hypertension 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, NYHA class 1 and CKD stage 3 (HCC) Chronic diastolic congestive heart failure (HCC) Chronic diastolic heart failure Morbid obesity with BMI of 50.0-59.9, adult (HCC) Morbid obesity ELISSA (obstructive sleep apnea) Obstructive sleep apnea (adult) (pediatric) Lumbar radiculopathy Thoracic or lumbosacral neuritis or radiculitis, unspecified documented in this encounter Advance Directives Documents on File Type Date Recorded Patient Aemt Expl 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 Camp Other Health Care 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
--- OUTSIDE RECORDS SUMMARY | 2023-06-01 05:00 | External Medical Summary | Summary of Care ---
Author Name Unknown Organization [place] [address] Care Team Providers Care Cost Estimating Clerk Name Role Phone Kevin Whiteside DO Primary Care Provider Reason for Visit * Reason Onset Date Comments Acute Problem Follow Up 04/12/2021 Encounter Details Date Type Department Care Team Description 04/12/2021 Scheduled Telephone [facility] [place], [facility] [address] [facility] [place] [address] [facility], Nurse [facility] [address] [facility] [place] [address] Allergies Active Allergy Reactions Severity Noted Date Comments Codeine 07/08/2014 hallucination Pollen 05/18/2019 Heparin 09/04/2009 Heparin Induced Thrombocytopenia Hydrocodone Neuro complications (Please comment) 07/28/2020 Empagliflozin Other (Please comment) Medium 05/17/2018 3 yeast infections in 6 weeks after starting Morphine And Related 09/16/1997 Hallucinations Tetanus Toxoid Other (Please comment) 06/15/2011 Passed out documented as of this encounter (statuses as of 04/12/2021) Medications Medication Sig Dispensed Refills Start Date [...] 0 04/08/2020 Active Blood Glucose Monitoring Suppl (RevoDealsUCH ULTRA 2) w/Device KIT Use to test [...] ([facility]) Inject 60 Units under the skin daily. [...] 7.0%-8.0% ([facility]) TAKE ONE CAPSULE BY MOUTH THREE TIMES [...] ([facility]) Inject 3 mg under the skin once [...] as of this encounter (statuses as of 04/12/2021) Active Problems Problem Noted Date Hypotension 12/19/2020 [...] as of this encounter (statuses as of 04/12/2021) Resolved Problems Problem Noted Date Resolved Date [...] Taxonomy. DM type 2, not at goal 05/29/200207/10/ 9 Overview: Modified per Diabetes protocol #14. TENOSYNOVITIS FOOT-ANKLE 12/26/2001 017 Goiter 01/13/2000 06/28/2011 BACKACHE NOS 08/26/1999 05/24/2017 OBESITY, UNSPECIFIED 08/26/1999 12/23/2009 Overview: Per Obesity Taxonomy Perforation of intestine 017 Overview: COLON Diverticulitis documented as of this encounter (statuses as of 04/12/2021) Immunizations Name Administration Dates Next Due COVID-19 mRNA, LNP-s, No Pre serve, 2-Dose Series ([employer]) 12/29/2020,12/18/2020 Pneumococcal Polysaccharide PPV23 (Pneumovax) 08/22/2009,06/15/2006 Seasonal [...] encounter Miscellaneous Notes * Telephone Encounter - Marizol Yen RN - 04/12/2021 1:28 PM EDT PC to follow up on on recent admission: Patient was admitted to [facility] 04/01/21 and was d/c 04/09/21. PC placed to patient. Spoke with patient. Identified by name & . Offers no health complaints, concerns, or needs at this time. Scheduled with PCP on Tuesday and CAVinicius RN on Tuesday. Patient encouraged to call [facility] intake phone number for all urgent, non-emergent health issues, phone number provided. documented in this encounter Plan of Treatment Upcoming Encounters Date Type Specialty Care Team Description 04/14/2021 Office Visit Family Medicine Kevin Whiteside DO [address] [place] [address] [phone] 04/14/2021 Home Visit Family Medicine Magaly Morales, Community Health Correspondence Dictator [address] [place] [address] [phone] 04/15/2021 Home Visit [facility] Brooke Jose RN [address] [place] [address] [phone] 04/15/2021 Pharmacy Pharmacy [facility] Jeramie [address] [place] [address] 04/17/2021 Home Visit [facility] Rema Real LSW [address] [place] [address] [phone] 04/22/2021 [facility] [address] [facility] [address] [phone] 04/23/2021 Hospital Encounter Surgery Raj Ahn, DO [address] [place] [address] [phone] 04/23/2021 Surgery Surgery CousinRaj travis, DO [address] [place] [address] [phone] INJECTION SPINE LUMBAR OR SACRAL 04/29/2021 Home Visit [facility] Vera Capellan RN [address] [place] [address] [phone] 07/20/2021 Office Visit Family Medicine Kevin Whiteside, [address] [place] [address] [phone] 08/18/2021 Office Visit Pulmonary Celsa Tafoya CRNP [address] [place] [address] [phone] 10/05/2021 Office Visit Cardiology Rey Woodall MD [address] [place] [address] [phone] Health Maintenance Due Date Last Done Comments Pneumococcal Vaccine: 65+ Years (2 of 2) 2020 08/22/2009, 06/15/2006 DIABETES-EYE EXAM 04/07/2021 04/07/2020, , 02/24/2010 (Done elsewhere), Additional history exists DIABETES-HGBA1C EVERY 6 MONTHS 05/17/2021 11/17/2020, 01/23/2020, 11/07/2019, Additional history exists Influenza Vaccine (FLU shot) (#1) 2021 06/13/2020, 07/23/2019, 06/12/2018, Additional history exists CKD GFR USE SMARTSET 90332 09/19/202103/20, 03/12/2021, 12/25/2020, Additional history exists BREAST CANCER SCREENING DISCUSSION YEARLY AGES 40-75 10/01/2021 10/01/2020, 07/10/2019, 06/23/2018, Additional history exists DIABETES-FOOT EXAM 01/14/2022 01/14/2021, 0 11/07/2019, 01/01/2019, Additional history exists CKD PHOS USE SMARTSET 32863 03/12/202202/24, 11/17/2020, 12/24/2019, Additional history exists DIABETES-URINE MICROALBUMIN EVERY 12 MONTHS 03/12/2022 03/12/2021, 03/12/2021, 12/24/2019, Additional history exists CKD HGB USE SMARTSET 28760 03/20/202203/20, 03/20/2021, 03/12/2021, Additional history exists *DEPRESSION [...] Documents on File Type Date Recorded 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
--- OUTSIDE RECORDS SUMMARY | 2023-06-01 05:00 | External Medical Summary | Summary of Care ---
Author Name Unknown Organization [facility] Address [place] [address] Care Team Providers Care Maintenance Groundman Name Role Phone Kevin Whiteside DO Primary Care Provider Reason for Visit * Reason Onset Date Comments [facility]: Maintenance 04/11/2021 Encounter Details Date Type Department Care Team Description 04/11/2021 Scheduled Telephone [facility], [facility] [address] [facility] [place] [id number] [facility], Nurse [facility] [address] [facility] [place] [address] [phone] Allergies Active Allergy Reactions Severity Noted Date Comments Codeine 07/08/2014 hallucination Pollen 05/18/2019 Heparin 09/04/2009 Heparin Induced Thrombocytopenia Hydrocodone Neuro complications (Please comment) 07/28/2020 Empagliflozin Other (Please comment) Medium 05/17/2018 3 yeast infections in 6 weeks after starting Morphine And Related 09/16/1997 Hallucinations Tetanus Toxoid Other (Please comment) 06/15/2011 Passed out documented as of this encounter (statuses as of 04/11/2021) Medications Medication Sig Dispensed Refills Start Date [...] 0 04/08/2020 Active Blood Glucose Monitoring Suppl (Arista Power ULTRA 2) w/Device KIT Use to test [...] of 7.0%-8.0% ([facility]) Inject 3 mg under the [...] as of this encounter (statuses as of 04/11/2021) Active Problems Problem Noted Date Hypotension 12/19/2020 [...] 10/14/2014 Overview: ICD-10 update of inactive term [place] filter in place 08/19/2014 History of pulmonary embolus (PE) 2013 Statin intolerance 07/16/2014 HTN, goal below 130/80 02/22/2014 Venous insufficiency 02/07/2013 ELISSA (obstructive sleep apnea) 09/16/2011 Overview: CPAP 11 cwp Mild, AHI 11.3 but with significant nocturnal hypoxemia Dicks Postsurgical hypothyroidism 06/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 documented as of this encounter (statuses as of 04/11/2021) Resolved Problems Problem Noted Date Resolved Date [...] as of this encounter (statuses as of 04/11/2021) Immunizations Name Administration Dates Next Due COVID-19 mRNA, LNP-s, No Pre serve, 2-Dose Series (xzoops) 12/29/2020,12/18/2020 Pneumococcal Polysaccharide PPV23 (Pneumovax) 08/22/2009,06/15/2006 Seasonal [...] encounter Miscellaneous Notes * Telephone Encounter - Jenn Reid RN - 04/11/2021 3:26 PM EDT Call placed to patient to Patient was admitted to [facility] 04/01/21 and was d/c 04/09/21. She had a fall and was unable to get up on her own. They felt it was due to her weight, medication, diabetes and age. She is unclear exactly why she was admitted. Denies any falls since d/c. Denies any medication changes. Eating and drinking well. Denies any new concerns today. Encouraged her to call [facility] with any concerns. documented in this encounter Plan of Treatment Upcoming Encounters Date Type Specialty Care Team Description 04/12/2021 Scheduled Telephone [facility], Nurse [facility] [address] [place] [address] [address] [phone] 04/14/2021 Office Visit Family Medicine Kevin Whiteside DO [address] [place] [address] [phone] 04/14/2021 Home Visit Family Medicine Magaly Morales, Community Health Anesthesiologist Assistant Certified [address] [place] [address] [phone] 04/15/2021 Home Visit [facility] Brooke Jose RN [address] [place] [address] [phone] 04/15/2021 Pharmacy Pharmacy [facility] [address] [place] [address] 04/17/2021 Home Visit [facility] Rema Real LSW [address] [place] [address] [phone] 04/22/2021 Home Visit [facility] Don Tomas MD [address] [place] [address] [phone] 04/23/2021 Hospital Encounter Surgery Raj Ahn, DO [address] [place] [address] [phone] 04/23/2021 Surgery Surgery Raj Ahn, DO [address] [place] [address] [phone] INJECTION SPINE LUMBAR OR SACRAL 04/29/2021 Home Visit [facility] Vera Capellan RN [address] [place] [address] [phone] 07/20/2021 Office Visit Family Medicine Kevin Whiteside, [address] [place] [address] [phone] 08/18/2021 Office Visit Pulmonary Celsa Tafoya CRNP [address] [place] [address] [phone] 10/05/2021 Office Visit Cardiology Rey Woodall MD [address] [place] [address] [phone] Health Maintenance Due Date Last Done Comments Pneumococcal Vaccine: 65+ Years (2 of 2) 2020 08/22/2009, 06/15/2006 DIABETES-EYE EXAM 04/07/2021 04/07/2020, , 02/24/2010 (Done elsewhere), Additional history exists DIABETES-HGBA1C EVERY 6 MONTHS 05/17/2021 11/17/2020, 01/23/2020, 11/07/2019, Additional history exists Influenza Vaccine (FLU shot) (#1) 2021 06/13/2020, 07/23/2019, 06/12/2018, Additional history exists CKD GFR USE SMARTSET 85600 09/19/202103/20, 03/12/2021, 12/25/2020, Additional history exists BREAST CANCER SCREENING DISCUSSION YEARLY AGES 40-75 10/01/2021 10/01/2020, 07/10/2019, 06/23/2018, Additional history exists DIABETES-FOOT EXAM 01/14/2022 01/14/2021, 0 11/07/2019, 01/01/2019, Additional history exists CKD PHOS USE SMARTSET 96074 03/12/202202/24, 11/17/2020, 12/24/2019, Additional history exists DIABETES-URINE MICROALBUMIN EVERY 12 MONTHS 03/12/2022 03/12/2021, 03/12/2021, 12/24/2019, Additional history exists CKD HGB USE SMARTSET 46537 03/20/202203/20, 03/20/2021, 03/12/2021, Additional history exists *DEPRESSION [...] Documents on File Type Date Recorded 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
--- OUTSIDE RECORDS SUMMARY | 2023-06-01 05:00 | External Medical Summary | Summary of Care ---
Author Name Unknown Organization [facility] Address [place], [place] [address] Care Team Providers Care Validation Technician Name Role Phone Kevin Whiteside DO Primary Care Provider Reason for Visit * Reason Onset Date Comments Advice 04/10/2021 Returning Call 04/15/2021 Encounter Details Date Type Department Care Team Description 04/10/2021 Telephone Family Practice [facility] [address] [place] [address] Kevin Whiteside DO [address] [place] [address] [phone] Advice; Returning Call Allergies Active Allergy Reactions Severity Noted Date [...] 0 04/08/2020 Active Blood Glucose Monitoring Suppl (Buzzwire ULTRA 2) w/Device KIT Use to test [...] of 7.0%-8.0% ([facility]) Inject 3 mg under the skin [...] mRNA, LNP-s, No Pre serve, 2-Dose Series (Peerform) 12/29/2020,12/18/2020 Pneumococcal Polysaccharide PPV23 (Pneumovax) 08/22/2009,06/15/2006 Seasonal [...] encounter Miscellaneous Notes * Telephone Encounter - Apple Vega OSA - 04/15/2021 2:35 PM EDT Patient has been notified of the message. Patient has no further questions. * Telephone Encounter - Stephanie Cook MED ASSIST - 04/15/2021 9:39 AM EDT message left for patient to call back. Referral faxed to [facility] * Telephone Encounter - Kevin Whiteside DO - 04/14/2021 12:06 PM EDT Placed referral in appt today - please send to [facility] * Telephone Encounter - Sue Stoll LPN - 04/10/2021 10:14 AM EDT Toño calling from [facility] Pt states that she would like to go to [facility] rather PT at home. Referral pending your review and signature. Please let pt know once referral sent Thank you. * Telephone Encounter - Celsa Green OSA - 04/10/2021 10:11 AM EDT Reason for patient's call: Toño, nurse from [facility] calling with report on patient. Caller was transferred to [facility] at the nurse line. documented in this encounter Plan of Treatment Upcoming Encounters Date Type Specialty Care Team Description 04/15/2021 Pharmacy [facility] [address] [address] Uncontrolled type 2 diabetes mellitus with stage 3 chronic kidney disease, with long-term current use of insulin (HCC)*; Type 2 diabetes mellitus with hemoglobin A1c goal of 7.0%-8.0% (HCC) 04/17/2021 Home Visit [facility] Rema Real LSW [address] [place] [address] [phone] 04/22/2021 Home Visit [facility] Don Tomas MD [address] [facility] [place] [address] [phone] 04/23/2021 Hospital Encounter Surgery Raj Ahn, DO [address] [place] [address] [phone] 04/23/2021 Surgery Surgery Raj Ahn DO [address] [place] [address] [phone] INJECTION SPINE LUMBAR OR SACRAL 04/29/2021 Home Visit [facility] Vera Capellan RN [address] [place] [address] [phone] 05/20/2021 Office Visit Pharmacy [facility] Jeramie [address] [place] [address] 05/26/2021 Home Visit Family Medicine Magaly Morales, Community Health Poker Prop Player [address] [place] [facility] [place] [address] [phone] 07/20/2021 Office Visit Family Medicine Kevin Whiteside DO [address] [place] [address] [phone] 08/18/2021 Office Visit Sleep Disorders Celas Tafoya CRNP [address] [place] [address] [address] [phone] 10/05/2021 Office Visit Cardiology Rey Woodall MD [address] [place] [address] [address] [phone] Health Maintenance Due Date Last Done Comments Pneumococcal Vaccine: 65+ Years (2 of 2) 2020 08/22/2009, 06/15/2006 DIABETES-HGBA1C EVERY 6 MONTHS 05/17/2021 11/17/2020, 01/23/2020, 11/07/2019, Additional history exists Influenza Vaccine (FLU shot) (#1) 2021 06/13/2020, 07/23/2019, 06/12/2018, Additional history exists CKD GFR USE SMARTSET 94452 09/19/202103/20, 03/12/2021, 12/25/2020, Additional history exists BREAST CANCER SCREENING DISCUSSION YEARLY AGES 40-75 10/01/2021 10/01/2020, 07/10/2019, 06/23/2018, Additional history exists DIABETES-FOOT EXAM 01/14/2022 01/14/2021, 0 11/07/2019, 01/01/2019, Additional history exists CKD PHOS USE SMARTSET 03578 03/12/202202/24, 11/17/2020, 12/24/2019, Additional history exists DIABETES-URINE MICROALBUMIN EVERY 12 MONTHS 03/12/2022 03/12/2021, 03/12/2021, 12/24/2019, Additional history exists CKD HGB USE SMARTSET 32329 03/20/202203/20, 03/20/2021, 03/12/2021, Additional history exists DIABETES-EYE [...] Documents on File Type Date Recorded 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
--- OUTSIDE RECORDS SUMMARY | 2023-06-01 05:00 | External Medical Summary | Summary of Care ---
Author Name Unknown Organization [place] [address] Care Team Providers Care Foreman/Pile Driving And Erection Name Role Phone Kevin Whiteside DO Primary Care Provider Reason for Visit * Reason Comments Appointment Encounter Details Date Type Department Care Team Description 04/15/2021 Pharmacy Pharmacy, [facility] [address] [facility] [place] [address] [facility] [address] [facility] [place] [address] Uncontrolled type 2 diabetes mellitus with stage 3 chronic kidney disease, with long-term current use of insulin ([facility])*; Type 2 diabetes mellitus with hemoglobin A1c goal of 7.0%-8.0% ([facility]) Allergies Active Allergy Reactions Severity [...] 0 04/08/2020 Active Blood Glucose Monitoring Suppl ([employer] ULTRA 2) w/Device KIT Use to test BG values 1 Kit 0 05/20/2020 Active Glucose Blood (BlueOak ResourcesTOUCH ULTRA BLUE) STRP Check sugars 3-4 times [...] of 7.0%-8.0% ([facility]) TAKE ONE CAPSULE BY MOUTH [...] 7.0%-8.0% ([facility]) Inject 3 mg under the [...] 10/14/2014 Overview: ICD-10 update of inactive term [place] filter in place 08/19/2014 History of pulmonary [...] as of this encounter Progress Notes * Caroline Bruno OSA - 04/15/2021 9:41 AM EDT Patient Phone Numbers Spoke with patient to schedule [facility] appointment for diabetes management. Appointment scheduled as noted below. Next Office Visit: 05/20/2021 [facility]uled [facility] 04/15/2021, 9:41 AM documented in this encounter Plan of Treatment Upcoming Encounters Date Type Specialty Care Team Description 04/15/2021 Home Visit [facility] Brooke Jose RN [address] [place] [address] [phone] 04/17/2021 Home Visit [facility] Rema Real LSW [address] [place] [address] [phone] 04/22/2021 [facility] Visit [facility] [address] [facility] [address] [phone] 04/23/2021 Hospital Encounter Surgery Raj Ahn, [address] [place] [address] [phone] 04/23/2021 Surgery Surgery Raj Ahn, [address] [place] [address] [phone] INJECTION SPINE LUMBAR OR SACRAL 04/29/2021 Home Visit [facility] Vera Capellan RN [address] [place] [address] [phone] 05/20/2021 Office Visit Pharmacy [facility] Jer[place] [address] [place] [address] 05/26/2021 Home Visit Family Medicine Magaly Morales, Community Health Timber Robber [address] [place] [address] [phone] 07/20/2021 Office Visit Family Medicine Kevin Whiteside DO [address] [place] [address] [phone] 08/18/2021 Office Visit Sleep Disorders Celsa Tafoya CRNP [address] [place] [address] [phone] 10/05/2021 Office Visit Cardiology Rey Woodall MD [address] [place] [address] [phone] Health Maintenance Due Date Last Done Comments Pneumococcal Vaccine: 65+ Years (2 of 2) 2020 08/22/2009, 06/15/2006 DIABETES-HGBA1C EVERY 6 MONTHS 05/17/2021 11/17/2020, 01/23/2020, 11/07/2019, Additional history exists Influenza Vaccine (FLU shot) (#1) 2021 06/13/2020, 07/23/2019, 06/12/2018, Additional history exists CKD GFR USE SMARTSET 89459 09/19/202103/20, 03/12/2021, 12/25/2020, Additional history exists BREAST CANCER SCREENING DISCUSSION YEARLY AGES 40-75 10/01/2021 10/01/2020, 07/10/2019, 06/23/2018, Additional history exists DIABETES-FOOT EXAM 01/14/2022 01/14/2021, 0 11/07/2019, 01/01/2019, Additional history exists CKD PHOS USE SMARTSET 53487 03/12/202202/24, 11/17/2020, 12/24/2019, Additional history exists DIABETES-URINE MICROALBUMIN EVERY 12 MONTHS 03/12/2022 03/12/2021, 03/12/2021, 12/24/2019, Additional history exists CKD HGB USE SMARTSET 28247 03/20/202203/20, 03/20/2021, 03/12/2021, Additional history exists DIABETES-EYE [...] with hemoglobin A1c goal of 7.0%-8.0% (HCC) Lumbar radiculopathy Thoracic or lumbosacral neuritis or radiculitis, unspecified documented in this encounter Advance Directives Documents on File Type Date Recorded Patient Electrical Controls Engineer Expl 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
--- OUTSIDE RECORDS SUMMARY | 2023-06-01 05:01 | External Medical Summary | Summary of Care ---
Author Name Unknown Organization [place] [address] Care Team Providers Care Dump Attendant Name Role Phone Kevin Whiteside DO Primary Care Provider Encounter Details Date Type Department Care Team Description 04/06/2021 Orders Only Family [facility] [address] [place] [address] Kevin Whiteside DO [address] [facility] [place] [address] [phone] Allergies Active Allergy Reactions Severity Noted Date Comments Codeine 07/08/2014 hallucination Pollen 05/18/2019 Heparin 09/04/2009 Heparin Induced Thrombocytopenia Hydrocodone Neuro complications (Please comment) 07/28/2020 Empagliflozin Other (Please comment) Medium 05/17/2018 3 yeast infections in 6 weeks after starting Morphine And Related 09/16/1997 Hallucinations Tetanus Toxoid Other (Please comment) 06/15/2011 Passed out documented as of this encounter (statuses as of 04/06/2021) Medications Medication Sig Dispensed Refills Start Date [...] 0 04/08/2020 Active Blood Glucose Monitoring Suppl (InspirotecTOUCH ULTRA 2) w/Device KIT Use to test [...] as of this encounter (statuses as of 04/06/2021) Active Problems Problem Noted Date Hypotension 12/19/2020 [...] 10/14/2014 Overview: ICD-10 update of inactive term [place] filter in place 08/19/2014 History of pulmonary embolus (PE) 2013 Statin intolerance 07/16/2014 HTN, goal below 130/80 02/22/2014 Venous insufficiency 02/07/2013 ELISSA (obstructive sleep apnea) 09/16/2011 Overview: CPAP 11 cwp Mild, AHI 11.3 but with significant nocturnal hypoxemia Dicks Postsurgical hypothyroidism 06/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 documented as of this encounter (statuses as of 04/06/2021) Resolved Problems Problem Noted Date Resolved Date [...] as of this encounter (statuses as of 04/06/2021) Immunizations Name Administration Dates Next Due COVID-19 [...] Visit Family Medicine Magaly Morales, Community Health Fish And Wildlife Warden [address] [facility] [place] [address] [phone] 04/17/2021 Home Visit [facility] Rema Real, AIRPLANE DESIGNER [address] [place] [address] [phone] 04/23/2021 Hospital Encounter Surgery Raj Ahn, DO [address] [place] [address] [phone] 04/23/2021 Surgery Surgery aRj Ahn, [address] [place] [address] [phone] INJECTION SPINE LUMBAR OR SACRAL 05/14/2021 Office Visit Pharmacy [facility] [place] [address] [place] [address] 07/20/2021 Office Visit Family Medicine Kevin Whiteside DO [address] [place] [address] [phone] 08/18/2021 Office Visit Pulmonary Cesla Tafoya CRNP [address] [place] [address] [phone] 10/05/2021 Office Visit Cardiology Rey Woodall MD [address] [place] [address] [phone] Health Maintenance Due Date Last Done Comments Pneumococcal Vaccine: 65+ Years (2 of 2) 2020 08/22/2009, 06/15/2006 DIABETES-EYE EXAM 04/07/2021 04/07/2020, , 02/24/2010 (Done elsewhere), Additional history exists DIABETES-HGBA1C EVERY 6 MONTHS 05/17/2021 11/17/2020, 01/23/2020, 11/07/2019, Additional history exists Influenza Vaccine (FLU shot) (#1) 2021 06/13/2020, 07/23/2019, 06/12/2018, Additional history exists CKD GFR USE SMARTSET 54269 09/19/202103/20, 03/12/2021, 12/25/2020, Additional history exists BREAST CANCER SCREENING DISCUSSION YEARLY AGES 40-75 10/01/2021 10/01/2020, 07/10/2019, 06/23/2018, Additional history exists DIABETES-FOOT EXAM 01/14/2022 01/14/2021, 0 11/07/2019, 01/01/2019, Additional history exists CKD PHOS USE SMARTSET 04375 03/12/202202/24, 11/17/2020, 12/24/2019, Additional history exists DIABETES-URINE MICROALBUMIN EVERY 12 MONTHS 03/12/2022 03/12/2021, 03/12/2021, 12/24/2019, Additional history exists CKD HGB USE SMARTSET 26168 03/20/202203/20, 03/20/2021, 03/12/2021, Additional history exists *DEPRESSION [...] Procedure Name Priority Date/Time Associated Diagnosis Comments OUTSIDE LAB-CORONAVIRUS (COVID-19) Routine 04/01/2021 documented in this encounter Results * OUTSIDE LAB-CORONAVIRUS (COVID-19) (04/01/2021) [id number] LAB NEGATIVE NEGATIVE OUTSIDE LAB (SEE SCANNED REPORT) Specimen Narrative Performed At OUTSIDE LAB (SEE SCANNED REPORT) documented in this encounter Advance Directives Documents on File Type Date Recorded Patient Geophysics Teacher Expl 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 Other Health Care Hayden r of Certified Medical Aide Princess Allen Other Health Care Pow er of Certified Medical Aide
--- OUTSIDE RECORDS SUMMARY | 2023-06-01 05:01 | External Medical Summary | Summary of Care ---
Author Name Unknown Organization [place] [address] Care Team Providers Care Teletypewriter Operator Name Role Phone Stevo Kevin Ocampomelinda Primary Care Provider Encounter Details Date Type Department Care Team Description 04/02/2021 Scan Encounter Unspecified Department <No scans attached> Allergies Active [...] as of this encounter (statuses as of 04/03/2021) Medications Medication Sig Dispensed Refills Start Date [...] as of this encounter (statuses as of 04/03/2021) Active Problems Problem Noted Date Hypotension 12/19/2020 [...] 10/14/2014 Overview: ICD-10 update of inactive term [place] filter in place 08/19/2014 History of pulmonary embolus (PE) 2013 Statin intolerance 07/16/2014 HTN, goal below 130/80 02/22/2014 Venous insufficiency 02/07/2013 ELISSA (obstructive sleep apnea) 09/16/2011 Overview: CPAP 11 cwp Mild, AHI 11.3 but with significant nocturnal hypoxemia Dicks Postsurgical hypothyroidism 06/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 documented as of this encounter (statuses as of 04/03/2021) Resolved Problems Problem Noted Date Resolved Date [...] as of this encounter (statuses as of 04/03/2021) Immunizations Name Administration Dates Next Due COVID-19 [...] Encounters Date Type Specialty Care Team Description 04/03/2021 Office Visit Family Medicine Lizzie, TATIANA Gaxiola [address] [place] [address] [phone] 04/14/2021 Home Visit Family Medicine Magaly Morales, Community Health Diesel Fleet Mechanic [address] [place] [address] [phone] 04/17/2021 Home Visit [facility] Rema Real LSW [address] [place] [address] [phone] 04/23/2021 Hospital Encounter Surgery CousinRaj travis, DO [address] [place] [address] [phone] 04/23/2021 Surgery Surgery CousinRaj travis, DO [address] [place] [address] [phone] INJECTION SPINE LUMBAR OR SACRAL 05/14/2021 Office Visit Pharmacy [facility] [place] [address] [place] [address] 07/20/2021 Office Visit Family Medicine Kevin Whiteside DO [address] [place] [address] [phone] 08/18/2021 Office Visit Pulmonary Celsa Tafoya CRNP [address] [place] [address] [phone] 10/05/2021 Office Visit Cardiology Rey Woodall MD [address] [place] [address] [phone] Health Maintenance Due Date Last Done Comments Pneumococcal Vaccine: 65+ Years (2 of 2) 2020 08/22/2009, 06/15/2006 DIABETES-EYE EXAM 04/07/2021 04/07/2020, , 02/24/2010 (Done elsewhere), Additional history exists DIABETES-HGBA1C EVERY 6 MONTHS 05/17/2021 11/17/2020, 01/23/2020, 11/07/2019, Additional history exists Influenza Vaccine (FLU shot) (#1) 2021 06/13/2020, 07/23/2019, 06/12/2018, Additional history exists CKD GFR USE SMARTSET 89004 09/19/202103/20, 03/12/2021, 12/25/2020, Additional history exists BREAST CANCER SCREENING DISCUSSION YEARLY AGES 40-75 10/01/2021 10/01/2020, 07/10/2019, 06/23/2018, Additional history exists DIABETES-FOOT EXAM 01/14/2022 01/14/2021, 0 11/07/2019, 01/01/2019, Additional history exists CKD PHOS USE SMARTSET 91382 03/12/202202/24, 11/17/2020, 12/24/2019, Additional history exists DIABETES-URINE MICROALBUMIN EVERY 12 MONTHS 03/12/2022 03/12/2021, 03/12/2021, 12/24/2019, Additional history exists CKD HGB USE SMARTSET 88088 03/20/202203/20, 03/20/2021, 03/12/2021, Additional history exists *DEPRESSION [...] Documents on File Type Date Recorded Patient Rigging Supervisor Expl 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 Camp Other Health Care Hayden r of Ear Nose Throat Physician Princess Allen Other Health Care Pow er of Ear Nose Throat Physician
--- OUTSIDE RECORDS SUMMARY | 2023-06-01 05:01 | External Medical Summary | Summary of Care ---
Author Name Unknown Organization [place] [address] Care Team Providers Care Limerock Tower Loader Name Role Phone Stevo Kevin Ocampomelinda Primary Care Provider Encounter Details Date Type Department Care Team Description 03/28/2021 Scan Encounter Unspecified Department <No scans attached> [...] as of this encounter (statuses as of 04/01/2021) Medications Medication Sig Dispensed Refills Start Date [...] goal of 7.0%-8.0% ([facility]) Inject 60 Units under the skin daily. [...] goal of 7.0%-8.0% ([facility]) Inject 3 mg under the skin once [...] as of this encounter (statuses as of 04/01/2021) Active Problems Problem Noted Date Hypotension 12/19/2020 [...] 10/14/2014 Overview: ICD-10 update of inactive term [place] filter in place 08/19/2014 History of pulmonary embolus (PE) 2013 Statin intolerance 07/16/2014 HTN, goal below 130/80 02/22/2014 Venous insufficiency 02/07/2013 ELISSA (obstructive sleep apnea) 09/16/2011 Overview: CPAP 11 cwp Mild, AHI 11.3 but with significant nocturnal hypoxemia Dicks Postsurgical hypothyroidism 06/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 documented as of this encounter (statuses as of 04/01/2021) Resolved Problems Problem Noted Date Resolved Date [...] as of this encounter (statuses as of 04/01/2021) Immunizations Name Administration Dates Next Due COVID-19 [...] Encounters Date Type Specialty Care Team Description 04/02/2021 Home Visit Family Medicine Magaly Morales, Community Health Traveler Changer [address] [place] [address] [phone] 04/03/2021 Office Visit Family Medicine Tahmina Samuel CRNP [address] [place] [address] [phone] 04/14/2021 Home Visit Family Medicine Magaly Morales, Community Health Traveler Changer [address] [place] [address] [phone] 04/17/2021 Home Visit [facility] Rema Real, FLAT SCREEN WORKER [address] [place] [address] [phone] 04/23/2021 Hospital Encounter Surgery Raj Ahn, [address] [place] [address] [phone] 04/23/2021 Surgery Surgery Raj Ahn DO [address] [place] [address] [phone] INJECTION SPINE LUMBAR OR SACRAL 05/14/2021 Office Visit Pharmacy [facility] Moe Bobo [address] [place] [address] 07/20/2021 Office Visit Family Medicine Kevin Whiteside DO [address] [place] [address] [phone] 08/18/2021 Office Visit Pulmonary Celsa Tafoya CRNP [address] [place] [address] [phone] 10/05/2021 Office Visit Cardiology Rey Woodall MD [address] [place] [address] [phone] Health Maintenance Due Date Last Done Comments Pneumococcal Vaccine: 65+ Years (2 of 2) 2020 08/22/2009, 06/15/2006 DIABETES-EYE EXAM 04/07/2021 04/07/2020, , 02/24/2010 (Done elsewhere), Additional history exists DIABETES-HGBA1C EVERY 6 MONTHS 05/17/2021 11/17/2020, 01/23/2020, 11/07/2019, Additional history exists Influenza Vaccine (FLU shot) (#1) 2021 06/13/2020, 07/23/2019, 06/12/2018, Additional history exists CKD GFR USE SMARTSET 34189 09/19/202103/20, 03/12/2021, 12/25/2020, Additional history exists BREAST CANCER SCREENING DISCUSSION YEARLY AGES 40-75 10/01/2021 10/01/2020, 07/10/2019, 06/23/2018, Additional history exists DIABETES-FOOT EXAM 01/14/2022 01/14/2021, 0 11/07/2019, 01/01/2019, Additional history exists CKD PHOS USE SMARTSET 52243 03/12/202202/24, 11/17/2020, 12/24/2019, Additional history exists DIABETES-URINE MICROALBUMIN EVERY 12 MONTHS 03/12/2022 03/12/2021, 03/12/2021, 12/24/2019, Additional history exists CKD HGB USE SMARTSET 71813 03/20/202203/20, 03/20/2021, 03/12/2021, Additional history exists *DEPRESSION [...] Documents on File Type Date Recorded Patient Cement Loader Expl 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 Other Health Care Hayden r of Poultry Farm Supervisor Princess Allen Other Health Care Pow er of Poultry Farm Supervisor
--- OUTSIDE RECORDS SUMMARY | 2023-06-01 05:01 | External Medical Summary | Summary of Care ---
Author Name Unknown Organization [facility] Address [facility] [place] [address] Care Team Providers Care Food Service Lead Name Role Phone Kevin Whiteside DO Primary Care Provider Reason for Visit * Reason Onset Date Comments Health Maintenance 04/02/2021 Encounter Details Date Type Department Care Team Description 04/02/[address] [facility] [address] [place] [address] Kevin Whiteside DO [address] [employer] [address] [place] [address] Health Maintenance Allergies Active Allergy Reactions Severity Noted Date Comments Codeine 07/08/2014 hallucination Pollen 05/18/2019 Heparin 09/04/2009 Heparin Induced Thrombocytopenia Hydrocodone Neuro complications (Please comment) 07/28/2020 Empagliflozin Other (Please comment) Medium 05/17/2018 3 yeast infections in 6 weeks after starting Morphine And Related 09/16/1997 Hallucinations Tetanus Toxoid Other (Please comment) 06/15/2011 Passed out documented as of this encounter (statuses as of 04/02/2021) Medications Medication Sig Dispensed Refills Start Date [...] 0 04/08/2020 Active Blood Glucose Monitoring Suppl (Real Time WineUCH ULTRA 2) w/Device KIT Use to test [...] goal of 7.0%-8.0% ([facility]) Inject 60 Units under the skin [...] goal of 7.0%-8.0% ([facility]) Inject 3 mg under the skin [...] goal of 7.0%-8.0% ([facility]) Inject 40 units with meals + sliding scale 1 units for every 25 units BG > 150. 121 mL 3 03/20/2021 Active documented as of this encounter (statuses as of 04/02/2021) Active Problems Problem Noted Date Hypotension 12/19/2020 [...] as of this encounter (statuses as of 04/02/2021) Resolved Problems Problem Noted Date Resolved Date [...] as of this encounter (statuses as of 04/02/2021) Immunizations Name Administration Dates Next Due COVID-19 mRNA, LNP-s, No Pre serve, 2-Dose Series ([employer]) 12/29/2020,12/18/2020 Pneumococcal Polysaccharide PPV23 (Pneumovax) 08/22/2009,06/15/2006 Seasonal [...] Telephone Encounter - Sadie Coleman LPN - 04/02/2021 10:52 AM EDT Care Gaps Comprehensive Care Outreach Last Office/Telemedicine Visit: Last Office/Telemedicine Visit: 03/20/2021 Next Office Visit: Next Office Visit: 04/03/2021 Scheduled Provider(s): TATIANA Silveira Reviewed Health Maintenance below Health Maintenance Topic Date Due Pneumococcal Vaccine: 65+ Years (2 of 2) 2020 DIABETES-EYE EXAM 04/07/2021 DIABETES-HGBA1C EVERY 6 MONTHS 05/17/2021 CKD GFR USE SMARTSET 93921 09/19/2021 Care Gap Outreach Action Taken: Outreach not indicated: Testing already Scheduled/Completed [facility] Recapture documented in this encounter Plan of Treatment Upcoming Encounters Date Type Specialty Care Team Description 04/02/2021 Home Visit Family Magaly Guerra, Community Health Search Engine Optimizer [address] [place] [address] [phone] 04/03/2021 Office Visit Family Tahmina Simpson CRNP [address] [place] [address] [phone] 04/14/2021 Home Visit Family Magaly Guerra, Community Health Search Engine Optimizer [address] [place] [address] [phone] 04/17/2021 Home Visit [facility] Rema Real LSW [address] [place] [address] [phone] 04/23/2021 Hospital Encounter Surgery Cousins, Raj Nolen, [address] [place] [address] [phone] 04/23/2021 Surgery Surgery CousinRaj travis, DO [address] [place] [address] [phone] INJECTION SPINE LUMBAR OR SACRAL 05/14/2021 Office Visit Pharmacy [facility] Moe [place] [address] [place] [address] 07/20/2021 Office Visit Family Medicine Kevin Whiteside, DO [address] [place] [address] [phone] 08/18/2021 Office Visit Pulmonary Celsa Tafoya CRNP [address] [place] [address] [phone] 10/05/2021 Office Visit Cardiology Rey Woodall MD [address] [place] [address] [phone] Health Maintenance Due Date Last Done Comments Pneumococcal Vaccine: 65+ Years (2 of 2) 2020 08/22/2009, 06/15/2006 DIABETES-EYE EXAM 04/07/2021 04/07/2020, , 02/24/2010 (Done elsewhere), Additional history exists DIABETES-HGBA1C EVERY 6 MONTHS 05/17/2021 11/17/2020, 01/23/2020, 11/07/2019, Additional history exists Influenza Vaccine (FLU shot) (#1) 2021 06/13/2020, 07/23/2019, 06/12/2018, Additional history exists CKD GFR USE SMARTSET 73225 09/19/202103/20, 03/12/2021, 12/25/2020, Additional history exists BREAST CANCER SCREENING DISCUSSION YEARLY AGES 40-75 10/01/2021 10/01/2020, 07/10/2019, 06/23/2018, Additional history exists DIABETES-FOOT EXAM 01/14/2022 01/14/2021, 0 11/07/2019, 01/01/2019, Additional history exists CKD PHOS USE SMARTSET 74988 03/12/202202/24, 11/17/2020, 12/24/2019, Additional history exists DIABETES-URINE MICROALBUMIN EVERY 12 MONTHS 03/12/2022 03/12/2021, 03/12/2021, 12/24/2019, Additional history exists CKD HGB USE SMARTSET 92220 03/20/202203/20, 03/20/2021, 03/12/2021, Additional history exists *DEPRESSION [...] Documents on File Type Date Recorded Patient Hydro Station Operator Expl 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 Camp Other Health Care Hayden r of Piercing Machine Operator Princess Allen Other Health Care Pow er of Piercing Machine Operator
--- OUTSIDE RECORDS SUMMARY | 2023-06-01 05:01 | External Medical Summary | Summary of Care ---
Author Name Unknown Organization [place] [address] Care Team Providers Care Approver Name Role Phone Stevo Kevin Ocampomelinda Primary Care Provider Encounter Details Date Type Department Care Team Description 04/03/2021 Scan Encounter Unspecified Department <No scans attached> [...] as of this encounter (statuses as of 04/08/2021) Medications Medication Sig Dispensed Refills Start Date [...] ([facility]) Inject 3 mg under the skin [...] as of this encounter (statuses as of 04/08/2021) Active Problems Problem Noted Date Hypotension 12/19/2020 [...] as of this encounter (statuses as of 04/08/2021) Resolved Problems Problem Noted Date Resolved Date [...] as of this encounter (statuses as of 04/08/2021) Immunizations Name Administration Dates Next Due COVID-19 [...] Visit Family Medicine Magaly Morales, Community Health Flat Examiner [address] [place] [address] [phone] 04/15/2021 Pharmacy Pharmacy [facility] [place] [address] [place] [address] 04/17/2021 Home Visit [facility] Rema Real, RING CONDUCTOR [address] [place] [address] [phone] 04/23/2021 Hospital Encounter Surgery Raj Ahn, DO [address] [place] [address] [phone] 04/23/2021 Surgery Surgery CouRaj soto, DO [address] [place] [address] [phone] INJECTION SPINE LUMBAR OR SACRAL 07/20/2021 Office Visit Family Medicine Kevin Whiteside, [address] [place] [address] [phone] 08/18/2021 Office Visit Pulmonary Celsa Tafoya CRNP [address] [place] [address] [phone] 10/05/2021 Office Visit Cardiology Rey Woodall MD [address] [place] [address] [phone] Health Maintenance Due Date Last Done Comments Pneumococcal Vaccine: 65+ Years (2 of 2) 2020 08/22/2009, 06/15/2006 DIABETES-EYE EXAM 04/07/2021 04/07/2020, , 02/24/2010 (Done elsewhere), Additional history exists DIABETES-HGBA1C EVERY 6 MONTHS 05/17/2021 11/17/2020, 01/23/2020, 11/07/2019, Additional history exists Influenza Vaccine (FLU shot) (#1) 2021 06/13/2020, 07/23/2019, 06/12/2018, Additional history exists CKD GFR USE SMARTSET 65721 09/19/202103/20, 03/12/2021, 12/25/2020, Additional history exists BREAST CANCER SCREENING DISCUSSION YEARLY AGES 40-75 10/01/2021 10/01/2020, 07/10/2019, 06/23/2018, Additional history exists DIABETES-FOOT EXAM 01/14/2022 01/14/2021, 0 11/07/2019, 01/01/2019, Additional history exists CKD PHOS USE SMARTSET 06441 03/12/202202/24, 11/17/2020, 12/24/2019, Additional history exists DIABETES-URINE MICROALBUMIN EVERY 12 MONTHS 03/12/2022 03/12/2021, 03/12/2021, 12/24/2019, Additional history exists CKD HGB USE SMARTSET 18336 03/20/202203/20, 03/20/2021, 03/12/2021, Additional history exists *DEPRESSION [...] on File Type Date Recorded Patient Academic Physician Expl 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 Camp Other Health Care Hayden r of Courtesy Car Driver Princess Allen Other Health Care Pow er of Courtesy Car Driver
--- OUTSIDE RECORDS SUMMARY | 2023-06-01 05:01 | External Medical Summary | Summary of Care ---
Author Name Unknown Organization [place] [address] Care Team Providers Care Svp Marketing Name Role Phone Kevin Whiteside DO Primary Care Provider Reason for Visit * Reason Onset Date Comments [facility]: Maintenance 04/10/2021 Encounter Details Date Type Department Care Team Description 04/10/2021 Telephone [facility], [facility] [address] [facility] [place] [id number] Services, Scheduling [address] [place] [address] [facility]: Maintenance Allergies Active Allergy [...] 0 04/08/2020 Active Blood Glucose Monitoring Suppl ([employer] Partners[employer]CH ULTRA 2) w/Device KIT Use to test [...] 10/14/2014 Overview: ICD-10 update of inactive term [place] filter in place 08/19/2014 History of pulmonary [...] Telephone Encounter - Vickie Madsen OSA - 04/10/2021 10:17 AM EDT Outbound call to patient to schedule ROSA's, lmom for patient with scheduled visits. PC 04/11/21 and 04/12/21 ROSA #1 PCP 04/14/21 ROSA #2 04/15/21 with Brooke Jose RNCM ROSA #3 04/22/21 with ROSA # with Vera Capellan RNCM Phone number provided for [facility] at [phone]. ELISSA Kaufman documented in this encounter Plan of Treatment Upcoming Encounters Date Type Specialty Care Team Description 04/11/2021 Scheduled Telephone [facility], Nurse [facility] [address] [place] [address] [phone] 04/12/2021 Scheduled Telephone [facility], Nurse [facility] [address] [place] [address] [phone] 04/14/2021 Office Visit Family Medicine Kevin Whiteside DO [address] [place] [address] [phone] 04/14/2021 Home Visit Family Medicine Magaly Morales, Community Health Retort Furnace Helper [address] [place] [address] [phone] 04/15/2021 Home Visit [facility] Brooke Jose RN [address] [place] [address] [phone] 04/15/2021 Pharmacy [facility] [address] [place] [address] 04/17/2021 Home Visit [facility] Rema Real LSW [address] [place] [address] [phone] 04/22/2021 Home Visit [facility] Don Tomas MD [address] [place] [address] [phone] 04/23/2021 Hospital Encounter Surgery Raj Ahn, DO [address] [place] [address] [phone] 04/23/2021 Surgery Surgery Raj Ahn, [address] [place] [address] [phone] INJECTION SPINE LUMBAR OR SACRAL 04/29/2021 Home Visit [facility] Vera Capellan RN [address] [place] [address] [phone] 07/20/2021 Office Visit Family Medicine Kevin Whietside, [address] [place] [address] [phone] 08/18/2021 Office Visit Pulmonary Celsa Tafoya CRNP [address] [place] [address] [phone] 10/05/2021 Office Visit Cardiology Rey Woodall MD [address] [place] [address] [phone] Health Maintenance Due Date Last Done Comments Pneumococcal Vaccine: 65+ Years (2 of 2) 2020 08/22/2009, 06/15/2006 DIABETES-EYE EXAM 04/07/2021 04/07/2020, , 02/24/2010 (Done elsewhere), Additional history exists DIABETES-HGBA1C EVERY 6 MONTHS 05/17/2021 11/17/2020, 01/23/2020, 11/07/2019, Additional history exists Influenza Vaccine (FLU shot) (#1) 2021 06/13/2020, 07/23/2019, 06/12/2018, Additional history exists CKD GFR USE SMARTSET 42574 09/19/202103/20, 03/12/2021, 12/25/2020, Additional history exists BREAST CANCER SCREENING DISCUSSION YEARLY AGES 40-75 10/01/2021 10/01/2020, 07/10/2019, 06/23/2018, Additional history exists DIABETES-FOOT EXAM 01/14/2022 01/14/2021, 0 11/07/2019, 01/01/2019, Additional history exists CKD PHOS USE SMARTSET 95969 03/12/202202/24, 11/17/2020, 12/24/2019, Additional history exists DIABETES-URINE MICROALBUMIN EVERY 12 MONTHS 03/12/2022 03/12/2021, 03/12/2021, 12/24/2019, Additional history exists CKD HGB USE SMARTSET 20038 03/20/202203/20, 03/20/2021, 03/12/2021, Additional history exists *DEPRESSION [...] Documents on File Type Date Recorded Patient Install Technician Expl 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 Camp Other Health Care Hayden r of Ship Keeper Princess Allen Other Health Care Pow er of Ship Keeper
--- OUTSIDE RECORDS SUMMARY | 2023-06-01 05:01 | External Medical Summary | Summary of Care ---
Author Name Unknown Organization [place] [address] Care Team Providers Care Senior Vice President & General Counsel Name Role Phone Stevo Kevin Ocampomelinda Primary Care Provider Encounter Details Date Type Department Care Team Description 04/09/2021 Scan Encounter Unspecified Department <No scans attached> [...] of 7.0%-8.0% ([facility]) Inject 3 mg under the skin once [...] Kevin Whiteside DO [address] [place] [address] [phone] 04/14/2021 Home Visit Family Medicine Magaly Morales, Community Health Technical Translator [address] [place] [address] [phone] 04/15/2021 Pharmacy Pharmacy [facility] [place] [address] [place] [address] 04/17/2021 Home Visit [facility] Rema Real, SMOCKING MACHINE OPERATOR [address] [place] [address] [phone] 04/23/2021 Hospital Encounter Surgery Raj Ahn, [address] [place] [address] [phone] 04/23/2021 Surgery Surgery Raj Ahn, [address] [place] [address] [phone] INJECTION SPINE LUMBAR OR SACRAL 07/20/2021 Office Visit Family Medicine Kevin Whiteside, [address] [place] [address] [phone] 08/18/2021 Office Visit Pulmonary Celsa Tafoya CRNP [address] [place] [address] [phone] 10/05/2021 Office Visit Cardiology Rey Woodall MD [address] [place] [address] [phone] Health Maintenance Due Date Last Done Comments Pneumococcal Vaccine: 65+ Years (2 of 2) 2020 08/22/2009, 06/15/2006 DIABETES-EYE EXAM 04/07/2021 04/07/2020, , 02/24/2010 (Done elsewhere), Additional history exists DIABETES-HGBA1C EVERY 6 MONTHS 05/17/2021 11/17/2020, 01/23/2020, 11/07/2019, Additional history exists Influenza Vaccine (FLU shot) (#1) 2021 06/13/2020, 07/23/2019, 06/12/2018, Additional history exists CKD GFR USE SMARTSET 58246 09/19/202103/20, 03/12/2021, 12/25/2020, Additional history exists BREAST CANCER SCREENING DISCUSSION YEARLY AGES 40-75 10/01/2021 10/01/2020, 07/10/2019, 06/23/2018, Additional history exists DIABETES-FOOT EXAM 01/14/2022 01/14/2021, 0 11/07/2019, 01/01/2019, Additional history exists CKD PHOS USE SMARTSET 93159 03/12/202202/24, 11/17/2020, 12/24/2019, Additional history exists DIABETES-URINE MICROALBUMIN EVERY 12 MONTHS 03/12/2022 03/12/2021, 03/12/2021, 12/24/2019, Additional history exists CKD HGB USE SMARTSET 23934 03/20/202203/20, 03/20/2021, 03/12/2021, Additional history exists *DEPRESSION [...] Documents on File Type Date Recorded Patient Plant Engineering Manager Expl 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 Other Health Care [facility]den r of Director Institution Princess Allen Other Health Care Pow er of Director Institution
--- OUTSIDE RECORDS SUMMARY | 2023-06-01 05:01 | External Medical Summary | Summary of Care ---
Author Name Unknown Organization [place] [address] Care Team Providers Care Floral Arranger Name Role Phone Stevo Kevin Gonzalez DO Primary Care Provider Encounter Details Date Type Department Care Team Description 04/02/2021 Home Visit Care Coordination [address] [place] [address] Magaly Morales, Community Health Household Appliance Repairer [address] [place], [place] [id number] Allergies Active Allergy Reactions Severity Noted Date [...] 0 04/08/2020 Active Blood Glucose Monitoring Suppl (SIRION BIOTECHTOUCH ULTRA 2) w/Device KIT Use to test [...] of 7.0%-8.0% ([facility]) Inject 60 Units under the skin [...] goal of 7.0%-8.0% ([facility]) TAKE ONE CAPSULE BY MOUTH THREE [...] of 7.0%-8.0% ([facility]) Inject 3 mg under the skin [...] of 7.0%-8.0% ([facility]) Inject 40 units with meals + [...] 10/14/2014 Overview: ICD-10 update of inactive term [place] filter in place 08/19/2014 History of pulmonary [...] as of this encounter Progress Notes * Magaly Morales, Community Health Household Appliance Repairer - 04/02/2021 3:42 PM EDT Patient was not home she is admitted to [facility] Electronically signed by Magaly Morales [facility] Household Appliance Repairer at 04/02/2021 3:44 PM EDT documented in this encounter Plan of Treatment Upcoming Encounters Date Type Specialty Care Team Description 04/03/2021 Office Visit Family Medicine Tahmina Samuel CRNP [address] [place] [address] [phone] 04/14/2021 Home Visit Family Medicine Magaly Morales, [facility] Health Household Appliance Repairer [address] [place] [address] [phone] 04/17/2021 Home Visit [facility] Rema Real LSW [address] [place] [address] [phone] 04/23/2021 Hospital Encounter Surgery Raj Ahn, DO [address] [place] [address] [phone] 04/23/2021 Surgery Surgery CousinRaj travis, DO [address] [place] [address] [phone] INJECTION SPINE LUMBAR OR SACRAL 05/14/2021 Office Visit Pharmacy [facility] [place] [address] [place] [address] 07/20/2021 Office Visit Family Medicine Kevin Whiteside DO [address] [place] [address] [phone] 08/18/2021 Office Visit Pulmonary Celsa Tafoya CRNP [address] [place] [address] [phone] 10/05/2021 Office Visit Cardiology Rey Woodall MD [address] [place] [address] [phone] Health Maintenance Due Date Last Done Comments Pneumococcal Vaccine: 65+ Years (2 of 2) 2020 08/22/2009, 06/15/2006 DIABETES-EYE EXAM 04/07/2021 04/07/2020, , 02/24/2010 (Done elsewhere), Additional history exists DIABETES-HGBA1C EVERY 6 MONTHS 05/17/2021 11/17/2020, 01/23/2020, 11/07/2019, Additional history exists Influenza Vaccine (FLU shot) (#1) 2021 06/13/2020, 07/23/2019, 06/12/2018, Additional history exists CKD GFR USE SMARTSET 78269 09/19/202103/20, 03/12/2021, 12/25/2020, Additional history exists BREAST CANCER SCREENING DISCUSSION YEARLY AGES 40-75 10/01/2021 10/01/2020, 07/10/2019, 06/23/2018, Additional history exists DIABETES-FOOT EXAM 01/14/2022 01/14/2021, 0 11/07/2019, 01/01/2019, Additional history exists CKD PHOS USE SMARTSET 77526 03/12/202202/24, 11/17/2020, 12/24/2019, Additional history exists DIABETES-URINE MICROALBUMIN EVERY 12 MONTHS 03/12/2022 03/12/2021, 03/12/2021, 12/24/2019, Additional history exists CKD HGB USE SMARTSET 82292 03/20/202203/20, 03/20/2021, 03/12/2021, Additional history exists *DEPRESSION [...] Documents on File Type Date Recorded Patient Bending Frame Operator Expl 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 Camp Other Health Care Hayden r of Shaper Operator Princess Allen Other Health Care Pow er of Shaper Operator
--- OUTSIDE RECORDS SUMMARY | 2023-06-01 05:01 | External Medical Summary | Summary of Care ---
Author Name Unknown Organization [place] [address] Care Team Providers Care Demand Generation Manager Name Role Phone Stevo Kevin Ocampomelinda Primary Care Provider Encounter Details Date Type Department Care Team Description 04/01/2021 Scan Encounter Unspecified Department <No scans attached> [...] of 7.0%-8.0% ([facility]) Inject 60 Units under the [...] of 7.0%-8.0% ([facility]) Inject 3 mg under the [...] of 7.0%-8.0% ([facility]) Inject 40 units with meals [...] Family Medicine Magaly Morales, Community Health Data Processing Auditor [address] [place] [address] [phone] 04/17/2021 Home Visit [facility] Rema Real LSW [address] [place] [address] [phone] 04/23/2021 Hospital Encounter Surgery CouRaj soto Callum, DO [address] [place] [address] [phone] 04/23/2021 Surgery Surgery CousinsRaj, DO [address] [place] [address] [phone] INJECTION SPINE LUMBAR OR SACRAL 05/14/2021 Office Visit Pharmacy [facility] [place] [address] [place] [address] 07/20/2021 Office Visit Family Medicine Kevin Whiteside DO [address] [place] [address] [phone] 08/18/2021 Office Visit Pulmonary Celsa Tafoya CRNP [address] [place] [address] [phone] 10/05/2021 Office Visit Cardiology Rey Woodall MD [address] [place] [address] [phone] Health Maintenance Due Date Last Done Comments Pneumococcal Vaccine: 65+ Years (2 of 2) 2020 08/22/2009, 06/15/2006 DIABETES-EYE EXAM 04/07/2021 04/07/2020, , 02/24/2010 (Done elsewhere), Additional history exists DIABETES-HGBA1C EVERY 6 MONTHS 05/17/2021 11/17/2020, 01/23/2020, 11/07/2019, Additional history exists Influenza Vaccine (FLU shot) (#1) 2021 06/13/2020, 07/23/2019, 06/12/2018, Additional history exists CKD GFR USE SMARTSET 76428 09/19/2021 06/25 /2021, 03/12/2021, 12/25/2020, Additional history exists BREAST CANCER SCREENING DISCUSSION YEARLY AGES 40-75 10/01/2021 10/01/2020, 07/10/2019, 06/23/2018, Additional history exists DIABETES-FOOT EXAM 01/14/2022 01/14/2021, 0 11/07/2019, 01/01/2019, Additional history exists CKD PHOS USE SMARTSET 11562 03/12/202202/24, 11/17/2020, 12/24/2019, Additional history exists DIABETES-URINE MICROALBUMIN EVERY 12 MONTHS 03/12/2022 03/12/2021, 03/12/2021, 12/24/2019, Additional history exists CKD HGB USE SMARTSET 18637 03/20/202203/20, 03/20/2021, 03/12/2021, Additional history exists *DEPRESSION [...] on File Type Date Recorded Patient Hard Candy Spinner Expl 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 Camp Other Health Care [place]den r of Box Office Manager Princess Allen Other Health Care Pow er of Box Office Manager
--- OUTSIDE RECORDS SUMMARY | 2023-06-01 05:02 | External Medical Summary | Summary of Care ---
Author Name Unknown Organization [place] [address] Care Team Providers Care Process Eng Name Role Phone Kevin Whiteside DO Primary Care Provider Reason for Visit * Reason Comments [facility]: Acute weakness, pain Encounter Details Date Type Department Care Team Description 03/24/2021 Home Visit [facility], [facility] [address] [place] [address] Brooke Jose, RN [address] [place] [address] [phone] Advanced care planning/counseling discussion*; Urinary tract infection without hematuria, site unspecified Allergies Active Allergy Reactions Severity Noted Date Comments Codeine 07/08/2014 hallucination Pollen 05/18/2019 Heparin 09/04/2009 Heparin Induced Thrombocytopenia Hydrocodone Neuro complications (Please comment) 07/28/2020 Empagliflozin Other (Please comment) Medium 05/17/2018 3 yeast infections in 6 weeks after starting Morphine And Related 09/16/1997 Hallucinations Tetanus Toxoid Other (Please comment) 06/15/2011 Passed out documented as of this encounter (statuses as of 03/24/2021) Medications Medication Sig Dispensed Refills Start Date [...] 90 Cap 3 12/18/2019 Active DIURETIC TITRATION PLANIndications:Able Bodied Seaman 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 1 Each 0 04/08/2020 Active Blood Glucose Monitoring Suppl ([employer]UCH ULTRA 2) w/Device KIT Use to test [...] Active Levothyroxine Sodium 200 MCG Oral Tablet (LEVOXYL)Indications :Postsurgical hypothyroidism TAKE ONE TABLET BY MOUTH [...] 12/18/2020 Active Furosemide 40 MG Oral Tablet (Lasix)Indications:C hronic diastolic congestive heart failure (HCC) Take 0.5 Tabs by mouth 2 times a day. 180 Tab 3 12/22/2020 Active Meclizine HCl 12.5 MG Oral Tablet (Antivert)Indication s:Vertigo Take 1 Tab by mouth 3 times a day as needed for Dizziness. 30 Tab 1 12/29/2020 Active Ondansetron HCl 4 MG Oral Tablet (Zofran)Indications: Vertigo Take 1 Tab by mouth every 6 [...] 1 02/06/2021 Active Colchicine 0.6 MG Oral TabletIndications:Le ukocytoclastic [...] 02/24/2021 Active Gabapentin 300 MG Oral Capsule (Neurontin)Indicatio ns:Type 2 diabetes mellitus with hemoglobin A1c goal of 7.0%-8.0% (HCC) TAKE ONE CAPSULE BY MOUTH THREE TIMES DAILY 270 Cap 3 02/24/2021 Active clonazePAM 0.5 MG Oral Tablet (KlonoPIN)Indication s:Anxiety state Take 1 Tab by mouth 2 times a day. 60 Tab 0 03/02/2021 Active Cyclobenzaprine HCl 10 MG Oral Tablet (Flexeril)Indication s:Spinal stenosis of lumbar region without neurogenic claudication,Lumbar radiculopathy TAKE ONE TABLET BY MOUTH AT BEDTIME NEEDED FOR SPASM 30 Tab 0 03/02/2021 Active Trulicity 3 MG/0.5ML Subcutaneous Solution Pen-injector (Dulaglutide)Indicat ions:Type 2 diabetes mellitus with hemoglobin A1c goal of 7.0%-8.0% ([facility]) Inject 3 mg under the skin once a week. 2 mL 5 03/19/2021 Active Nerve Pain Relief Sublingual Tablet SublingualIndication s:pt taking Nervive, nerve relief tablets at bedtime Place under the tongue. Indications: pt taking Nervive, nerve relief tablets at bedtime 0 Active Amoxicillin-Pot Clavulanate 875-125 MG Oral TabletIndications:Ac ulysses cystitis without hematuria Take 1 Tab by mouth every 12 hours for 10 days. 20 Tab 0 03/20/2021 03/30/2021 Active NovoLOG FlexPen 100 UNIT/ML Subcutaneous Solution Pen-injector (insulin aspart)Indications:T ype 2 diabetes mellitus with hemoglobin A1c goal of 7.0%-8.0% ([facility]) Inject 40 units with meals + sliding scale 1 units for every 25 units BG > 150. 121 mL 3 03/20/2021 Active Sulfamethoxazole-Tri methoprim 800-160 MG Oral Tablet (Bactrim DS)Indications:Urina ry tract infection without hematuria, site unspecified Take 1 Tab by mouth 2 times a day for 5 days. Until gone 10 Tab 0 03/24/2021 03/29/2021 Active documented as of this encounter (statuses as of 03/24/2021) Active Problems Problem Noted Date Hypotension 12/19/2020 [...] 10/14/2014 Overview: ICD-10 update of inactive term Piercy filter in place 08/19/2014 History of pulmonary embolus (PE) 2013 Statin intolerance 07/16/2014 HTN, goal below 130/80 02/22/2014 Venous insufficiency 02/07/2013 ELISSA (obstructive sleep apnea) 09/16/2011 Overview: CPAP 11 cwp Mild, AHI 11.3 but with significant nocturnal hypoxemia Dicks Postsurgical hypothyroidism 06/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 documented as of this encounter (statuses as of 03/24/2021) Resolved Problems Problem Noted Date Resolved Date [...] as of this encounter (statuses as of 03/24/2021) Immunizations Name Administration Dates Next Due COVID-19 mRNA, LNP-s, No Pre serve, 2-Dose Series ([employer]) 12/29/2020,12/18/2020 Pneumococcal Polysaccharide PPV23 (Pneumovax) 08/22/2009,06/15/2006 [...] Reading Time Taken Comments Blood Pressure 124/60 03/24/2021 6:39 PM EDT Pulse 80 03/24/2021 6:39 PM EDT Temperature 36.2 C (97.1 F) 03/24/2021 6 :39 PM EDT Respiratory Rate 18 03/24/2021 6:39 PM EDT Oxygen Saturation 97% 03/24/2021 6:3 9 PM EDT 2lnc Inhaled Oxygen Concentration - - Weight 150.6 kg (332 lb) 03/24/2021 6:3 9 PM EDT during visit on home scale Height - - Body Mass Index 56.99 12/29/2020 9:29 AM EDT documented in this encounter Progress Notes * Fran Ireland DO - 03/24/2021 10:35 PM EDT Not tolerating Augmentin. CrCl >30 so will give Bactrim DS which she has tolerated in the past. 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 Visit Date: 03/24/2021 Time: 6:05 PM Name: Stephanie aCmp : 1955 Current Concerns: weakness, poor balance, ''can't seem to stay awake,'' generalized joint pain Started last week and she went to PCP office Was given abx for uti on 03/20 Burning has resolved states she usually does not feel well on penicillins d/t gi upset and has only been taking 1/2 doses of abx Denies n/v/d Poor appetite Had cup of coffee this morning but did not eat b/c ''was too sick and couldn't stay awake to eat,''had poptart late morning, has only had approx 400ml additional fluid to drink today Pain has been worse than baseline Has not spent any time outside and has little to no potential for recent tic bite Temp 99.0 this morning, denies fever, chills bsg 317 this am Attempted to ck at lunch time but ''I couldn't focus on what I was trying to do,'' bsg was 215 at that time bsg 361 during visit Has been sleeping more through day and not using cpap when sleeping during day but is wearing at all times during night Has not been weighing since office visit last week d/t not feeling well Denies falls but stumbles frequently Problems/Symptoms: Review of Systems Constitutional: Positive for appetite change (decreased) and fatigue. Negative for chills, diaphoresis and fever. HENT: Positive for congestion, sinus pressure, sinus pain and sneezing. Eyes: Negative. Respiratory: Positive for shortness of breath (AVENDAÑO - at baseline). Negative for cough, wheezing andstridor. Cardiovascular: Positive for leg swelling (+2 b/l le pitting). Gastrointestinal: Negative. Endocrine: Negative. Genitourinary: Negative. Musculoskeletal: Positive for arthralgias and back pain. Skin: Negative. Allergic/Immunologic: Positive for environmental allergies. Neurological: Positive for dizziness (occasional when first laying down) and weakness (mild). Negative for light-headedness and headaches. Hematological: Negative. Psychiatric/Behavioral: Negative. Physical Exam: BP 124/60 | Pulse 80 | Temp 36.2 C (97.1 F) | Resp 18 | Wt (!) 150.6 kg (332 lb) Comment: during visit on home scale | LMP 03/11/2003 | SpO2 97% Comment: 2lnc | BMI 56.99 kg/m | BSA 2.61 m Pain 8 Physical Exam Constitutional: General: She is not in acute distress. Appearance: She is obese. HENT: Head: Normocephalic and atraumatic. Nose: Congestion ("allergies") present. Cardiovascular: Rate and Rhythm: Normal rate and regular rhythm. Pulses: Normal pulses. Heart sounds: Normal heart sounds. Pulmonary: Effort: Pulmonary effort is normal. No respiratory distress. Breath sounds: No stridor. Rales (b/l mid to lower posterior steiner) present. No wheezing or rhonchi. Chest: Chest wall: No tenderness. Abdominal: General: Bowel sounds are normal. Palpations: Abdomen is soft. Musculoskeletal: Right lower leg: Edema present. Left lower leg: Edema present. Skin: General: Skin is warm and dry. Capillary Refill: Capillary refill takes less than 2 seconds. Coloration: Skin is pale. Neurological: General: No focal deficit present. Mental Status: She is alert and oriented to person, place, and time. Mental status is at baseline. Psychiatric: Mood and Affect: Mood normal. Behavior: Behavior normal. Thought Content: Thought content normal. Judgment: Judgment normal. TT to Dr. Ireland with assessment Treatment/Plan: Dr. Ireland calling in different abx Take new abx as prescribed Stop Amoxicillin-pot Clavulanate Encouraged to use cane to ambulate at all times Referral to [facility] for home safety assessment Drink 4 bottles of water daily Eat three meals daily Ck bsgs qid and record Do NOT take nap without use of o2 2l and cpap Tramadol and apap for pain Keep paths clear of clutter [facility] referral for home safety assessment Home Interventions Provided: Oral Medications: Antibiotic Consulted PCP/Specialist Reinforced current Plan of Care, including self-management and medication regimen Updated Advanced Care Planning Note [facility] ([facility]) Fall Risk Assessment Tool Age 65+: Yes (03/24/211799) Diagnosis (3 or more co-existing): Yes (03/24/211799) Prior history of falls within 3 months: No (03/24/211799) Incontinence: Yes (03/24/211799) Visual impairment: Yes(cataracs) (03/24/211799) Impaired functional mobility: Yes (03/24/211799) Environmental hazards: Yes(pathways not clear) (03/24/211799) Poly Pharmacy (4 or more prescriptions - any type): Yes (03/24/211799) Pain affecting level of function: Yes (03/24/211799) Cognitive impairment: No (03/24/211799) Score - a score of 4 or more is considered at risk for fallin (03/24/211799) Patient's 'Red Flags': 1. Fall with injury 2. Increased weakness 3. bsgs >350<80 Patient Needs to Remember: Call [facility] with red flags Referrals Needed: none Follow Up: Patient encouraged to call the intake phone number for all urgent but not emergent issues. Scheduled to follow up with patient daily x2 via phone, visit prn. Brooke Jose RN 03/24/2021 6:05 PM documented in this encounter Miscellaneous Notes * Addendum Note - Fran Ireland DO - 03/24/2021 10:37 PM EDT Addended by: FRAN IRELAND on: 03/24/2021 10:37 PM Modules accepted: Orders * ACP (Advance Care Planning) - Brooke Jose RN - 03/24/2021 6:58 PM EDT Patient-centered Communication 03/24/2021 The patient/surrogate voluntarily agreed to participate in advance care planning discussion. They were advised that this is a separate service which may incur out of pocket cost in the form of copayment and/or deductibles. Location: Home Individual(s) present for conversation: Patient Decisions Discerning What Matters Most to the Patient: Their current symptoms include:: Pain;Tiredness;Drowsiness;Lack of appetite;Shortnes of breath;Depression (03/24/2021 6:48 PM) The patient considers these as 'Unacceptable outcomes':: "Being a vegetable" (define below);Unable to feed themselves;Prolonged [place] stay (define below);Prolonged mechanical ventilation (define below);Prolonged hospital stay (define below) (03/24/2021 6:48 PM) "Being a vegetable", patient defines as:: no possible way that i can come back (03/24/2021 6:48 PM) Prolonged hospital stay, patient defines as:: no hope of ever gettig out of hospital (03/24/2021 6:48 PM) Prolonged [place] stay, patient defines as:: no hope of ever getting back home (03/24/2021 6:48PM) Prolonged mechanical ventilation, patient defines as:: no hope of getting off ventilator (:48 PM) The patient's cultural or spiritual beliefs that may affect health care decisions:: none (:48 PM) Source: Content from [facility] Aligning Care With What Matters Most: Interventions/Choices:: CPR;Intubation/mechanical ventilation;Non-invasive ventilation or BIPAP;Antibiotic therapy;Artificial nutrition;IV hydration;Surgical procedure;Lab draws;Blood transfusion (03/24/2021 6:52 PM) Rationale for Decisions Their goals for CPR [...] rest of my life (03/24/2021 6:52 PM) Source: Content from [facility] 15 minutes spent in direct [id number] discussion today, Pt has had extensive treatment for medical issues in past and has been on ventilator, had trach, feeding tube, iv fluids and possibly CPR but she is not able to say for certain, but states, ''I twice.'' She is comfortable discussing decisions and is knowledgeable when making medical decisions. Brooke Jose, RN documented in this encounter Plan of Treatment Upcoming Encounters Date Type Specialty Care Team Description 03/25/2021 Office Visit Pain Management Raj Ahn DO [address] [place] [address] [phone] 03/25/2021 Scheduled Telephone [facility] [place] Plant Attendant, [place] Cisneros [address] [place] [address] [phone] 03/26/2021 Scheduled Telephone [facility] Plant Attendant, [place] Cisneros [address] [place] [address] [phone] 03/27/2021 Home Visit [facility] Vera Capellan RN [address] [place] [address] [phone] 04/14/2021 Home Visit Family Medicine Magaly Morales, [facility] Physician Assistant [address] [place] [address] 04/17/2021 Linen Clerk [facility] Rema Real LSW [address] [place] [address] [phone] 05/14/2021 Office Visit Pharmacy [facility] [address] [place] [address] 07/20/2021 Office Visit Family Medicine Kevin Whiteside DO [address] [place] [address] [phone] 08/18/2021 Office Visit Pulmonary Celsa Tafoya CRNP [address] [place] [address] [phone] 10/05/2021 Office Visit Cardiology Rey Woodall MD [address] [place] [address] [phone] Health Maintenance Due Date Last Done Comments Pneumococcal Vaccine: 65+ Years (2 of 2) 2020 08/22/2009, 06/15/2006 DIABETES-EYE EXAM 04/07/2021 04/07/2020, , 02/24/2010 (Done elsewhere), Additional history exists DIABETES-HGBA1C EVERY 6 MONTHS 05/17/2021 11/17/2020, 01/23/2020, 11/07/2019, Additional history exists CKD GFR USE SMARTSET 10838 09/19/202103/20, 03/12/2021, 12/25/2020, Additional history exists BREAST CANCER SCREENING DISCUSSION YEARLY AGES 40-75 10/01/2021 10/01/2020, 07/10/2019, 06/23/2018, Additional history exists DIABETES-FOOT EXAM 01/14/2022 01/14/2021, 0 11/07/2019, 01/01/2019, Additional history exists CKD PHOS USE SMARTSET 21536 03/12/202202/24, 11/17/2020, 12/24/2019, Additional history exists DIABETES-URINE MICROALBUMIN EVERY 12 MONTHS 03/12/2022 03/12/2021, 03/12/2021, 12/24/2019, Additional history exists CKD HGB USE SMARTSET 85403 03/20/202203/20, 03/20/2021, 03/12/2021, Additional history exists *DEPRESSION SCREENING,ANNUAL FOR PTS 12 AND OVER Addressed 06/12/2018 Overridden with the intention of not completing the topic Zoster Vaccines Completed 05/08/2020, 10/27, 12/11/2015 Influenza Vaccine (FLU shot) Completed 06/13/2020, 07/23/2019, 06/12/2018, Additional history exists COVID-19 Vaccine Completed 12/29/2020, 12/18/2020 MENINGOCOCCAL (MENACTRA/MENVEO) Aged Out No longer eligible based on patient's age to complete this topic documented as of this encounter Implants Not on filedocumented as of this encounter Visit Diagnoses Diagnosis Advanced care planning/counseling discussion- Primary Other specified counseling Urinary tract infection without hematuria, site unspecified documented in this encounter Advance Directives Documents on File Type Date Recorded Patient Claim Administrator Expl 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 [place] Other Health Care [place] r of [employer] Princess [place] Other Health Care Pow er of [employer]
--- OUTSIDE RECORDS SUMMARY | 2023-06-01 05:02 | External Medical Summary | Summary of Care ---
Author Name Unknown Organization [place] [address] Care Team Providers Care Shale Miner Blasting Name Role Phone Kevin Whiteside DO Primary Care Provider Reason for Visit * Reason Comments Lumbar Pain W/radiation Encounter Details Date Type Department Care Team Description 03/25/2021 Office Visit Interventional Pain Center, [facility] [address] [place] [id number] CouRaj soto DO [address] [place] [address] Lumbar radicular pain*; Spinal stenosis of lumbar region with neurogenic [...] as of this encounter (statuses as of 03/25/2021) Medications Medication Sig Dispensed Refills Start Date [...] 90 Cap 3 12/18/2019 Active DIURETIC TITRATION PLANIndications:Checker Stocker 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 1 Each 0 04/08/2020 Active Blood Glucose Monitoring Suppl (Inpria CorporationUCH ULTRA 2) w/Device KIT Use to [...] goal of 7.0%-8.0% ([facility]) Inject 3 mg under the skin once a week. 2 mL 5 03/19/2021 Active Nerve Pain Relief Sublingual Tablet SublingualIndication s:pt taking Nervive, nerve relief tablets at bedtime Place under the tongue. Indications: pt taking Nervive, nerve relief tablets at bedtime 0 Active Amoxicillin-Pot Clavulanate 875-125 MG Oral TabletIndications:Ac yurok cystitis without hematuria Take 1 Tab by [...] as of this encounter (statuses as of 03/25/2021) Active Problems Problem Noted Date Hypotension 12/19/2020 [...] 10/14/2014 Overview: ICD-10 update of inactive term [place] filter in place 08/19/2014 History of pulmonary embolus (PE) 2013 Statin intolerance 07/16/2014 HTN, goal below 130/80 02/22/2014 Venous insufficiency 02/07/2013 ELSISA (obstructive sleep apnea) 09/16/2011 Overview: CPAP 11 cwp Mild, AHI 11.3 but with significant nocturnal hypoxemia Dicks Postsurgical hypothyroidism 06/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 documented as of this encounter (statuses as of 03/25/2021) Resolved Problems Problem Noted Date Resolved Date [...] as of this encounter (statuses as of 03/25/2021) Immunizations Name Administration Dates Next Due COVID-19 mRNA, LNP-s, No Pre serve, 2-Dose Series (UpSpring) 12/29/2020,12/18/2020 Pneumococcal Polysaccharide PPV23 (Pneumovax) 08/22/2009,06/15/2006 Seasonal [...] of this encounter Progress Notes * Raj Ahn, DO - 03/25/2021 12:41 PM EDT Name: Stephanie Camp Date: 03/25/2021 HPI: Stephanie Camp is a 65 year old female seen in the pain management clinic for evaluation of recurrent low back/buttock/leg BL. No bowel/bladder dysfunction or motor weakness. Same as previous complaints. She feels that the caudal MICH completed last April was more effective than SI joint injection in June. Does have moderate spinal stenosis on MRI from 2018. Requesting repeat MICH if possible. PMH/meds reviewed. History: Past Medical History: Diagnosis Date ELSIE (acute kidney injury) (HCC) 06/12/2018 Allergic rhinitis due to other allergen Backache Diverticulosis of colon 01/28/06 DM type 2, not at goal (HCC) ELLIE (generalized anxiety disorder) 09/13/2009 Goiter [place] filter in place 08/19/2014 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HCC) [...] with hemoglobin A1c goal of 7.0%-8.0% (HCC) 10/14/2014 ICD-10 update of inactive term Vaginal karmen 07/13/2018 Past Surgical History: Procedure Laterality Date ARTHROPLASTY KNEE TOTAL Right 07/24/14 R COLONOSCOPY, DIAGNOSTIC (RECTUM) 02/18/2016 normal, repeat 10 yrs/[facility] COLONOSCOPY, GI REFERRAL OP 01/28/06 diverticulosis--repeat 10 years INCISION OF WINDPIPE, PLANNED 06/03/2011 TRACHEOSTOMY PLANNED performed by DANNY HOLDER at OR [facility] INJECT DX/THER SUBSTANCE INTERLAMINAR LUMBAR/SACRAL W IMAGE GUIDE 05/26/2020 INJECTION SPINE LUMBAR OR SACRAL performed by Raj Ahn DO at OR [facility] KNEE ARTHROSCOPY/DEBRIDEMENT 07/[address] PERMANENT GASTROSTOMY TUBE 09/06/09 GASTROSTOMY WITH CONSTUCTION GASTRIC TUBE performed by AMADOU NUNEZ at [facility] REMOVAL OF THYROID GLAND 06/15/2011 THYROIDECTOMY INCLUDING SUBSTERNAL THYROID CERVICAL APPROACH performed by DANNY HOLDER at OR [facility] REMOVE GALLBLADDER 09/06/09 CHOLECYSTECTOMY performed by AMADOU NUNEZ at OR [facility] REPAIR RECURRENT INCISIONAL HERNIA 1998 REVISION OF COLOSTOMY, SIMPLE 1997 SACROILIAC JOINT INJECT W/GUIDANCE 07/28/2020 INJECTION SACROILIAC JOINT performed by Raj Ahn DO at OR [facility] SUTURE, LARGE INTESTINE W/COLOSTOMY 1996 perforation R colon with colostomy VENA CAVA FILTER/LIGATION/CLIP 08/19/09 [place] filter placement through the right femoral 08/19/[address] Lerma at [facility] Current Outpatient Medications Medication Sig Dispense Refill Sulfamethoxazole-Trimethoprim 800-160 MG Oral Tablet (Bactrim DS) Take 1 Tab by mouth 2 times a dayfor 5 days. Until gone 10 Tab 0 Amoxicillin-Pot Clavulanate 875-125 MG Oral Tablet Take 1 Tab by mouth every 12 hours for 10 days. 20 Tab 0 Nerve Pain Relief Sublingual Tablet Sublingual Place under the tongue. Indications: pt taking Nervive, nerve relief tablets at bedtime NovoLOG FlexPen 100 UNIT/ML Subcutaneous Solution Pen-injector (insulin aspart) Inject 40 units with meals + sliding scale 1 units for every 25 units BG > 150. 121 mL 3 Trulicity 3 MG/0.5ML Subcutaneous Solution Pen-injector (Dulaglutide) Inject 3 mg under the skin once a week. 2 mL 5 clonazePAM 0.5 MG Oral Tablet (KlonoPIN) Take 1 Tab by mouth 2 times a day. 60 Tab 0 Cyclobenzaprine HCl 10 MG Oral Tablet [...] by mouth daily. (at least 30 min priorto breakfast or other meds) 30 Tab 11 Meclizine HCl 12.5 MG Oral Tablet (Antivert) Take 1 Tab by mouth 3 times a day as needed for Dizziness. 30 Tab 1 Ondansetron HCl 4 MG Oral Tablet (Zofran) Take 1 Tab by mouth every 6 hours as needed for Nausea. 30 Tab 0 Furosemide 40 MG Oral Tablet (Lasix) Take 0.5 Tabs by mouth 2 times a day. 180 Tab 3 Tresiba FlexTouch 100 UNIT/ML Subcutaneous Solution Pen-injector (Insulin Degludec) Inject 60 Unitsunder the skin daily. 45 mL 3 Acetaminophen [...] times daily with insulin 200 Each 11 clobetasol propionate (TEMOVATE) 0.05 % cream Apply to rash on the hands and dorsal feet twice daily x 1 week, then as needed for flares. 30 g 1 Glucose Blood (Inpria CorporationUCH ULTRA BLUE) STRP Check sugars 3-4 times daily, E11.9 400 Strip 3 Blood Glucose Monitoring Suppl (Flirtatious LabsTOUCH ULTRA 2) w/Device KIT Use to test BG values 1 Kit 0 DIURETIC TITRATION PLAN If no improvement on day 3, contact heart failure managing provider. 1 Each0 ACCU-CHEK SOFTCLIX LANCETS MISC Test blood sugar three or four times daily as directed 400 Each 3 omeprazole (PRILOSEC) 20 MG CPDR Take 1 [...] times a day as needed for Constipation. Review of patient's allergies indicates: Allergen Reactions [...] Quit date: 08/26/1997 Years since quittin.5 Smokeless Tobacco Never Used Social History Substance and Sexual Activity Alcohol Use Not Currently Comment: rare ROS CONSTITUTIONAL: Denies anorexia, weight loss, fever, night sweats RESPIRATORY: Denies shortness of breath, wheezing, productive cough CARDIOVASCULAR: Denies chest pains, irregular heartbeat HEME: Denies easy bruising , anti-coagulation therapy ROS EXAM: Remainder of ROS negative as discussed above in the HPI PHYSICAL EXAM: LMP 03/11/2003 Motor 5/5 BL lower. No gross sensory deficits. Minimal SI joint tenderness. ASSESSMENT: Lumbar radicular pain Lumbar spinal stenosis RECOMMENDATION: Will schedule for caudal MICH as requested. Last injection was 8 months ago. Raj Ahn DO 03/25/2021 12:41 PM documented in this encounter Plan of Treatment Upcoming Encounters Date Type Specialty Care Team Description 03/25/2021 Scheduled Telephone [facility] Workforce Development Vice President, [facility] [address] [place] [address] [phone] 03/26/2021 Scheduled Telephone [facility] Workforce Development Vice President, [facility] [address] [place] [address] [phone] 03/27/2021 Home Visit [facility] Vera Capellan RN [address] [place] [address] [phone] 04/02/2021 Home Visit Family Medicine Magaly Morales, [facility] [address] [place] [address] [phone] 04/14/2021 Home Visit Family Medicine Magaly Morales, [facility] [place] [address] [place] [address] [phone] 04/17/2021 Junior Recruiter [facility] Rema Real LSW [address] [place] [address] [phone] 04/23/2021 Hospital Encounter Surgery Raj Ahn DO [address] [place] [address] [phone] 04/23/2021 Surgery Surgery Raj Ahn DO [address] [place] [address] [phone] INJECTION SPINE LUMBAR OR SACRAL 05/14/2021 Office Visit [facility]acy [facility] [address] [place] [address] 07/20/2021 Office Visit Family Medicine Kevin Whiteside DO [address] [place] [address] [phone] 08/18/2021 Office Visit Pulmonary Celsa Tafoya CRNP [address] [place] [address] [phone] 10/05/2021 Office Visit Cardiology Rey Woodall MD [address] [place] [address] [phone] Scheduled Orders Name Type Priority Associated Diagnoses Orde r Schedule INJECT DX/THER SUBSTANCE INTERLAMINAR LUMBAR/SACRAL W IMAGE GUIDE Procedures Routine Lumbar radicular pain Ordered: 03/25/2021 Health Maintenance Due Date Last Done Comments Pneumococcal Vaccine: 65+ Years (2 of 2) 2020 08/22/2009, 06/15/2006 DIABETES-EYE EXAM 04/07/2021 04/07/2020, , 02/24/2010 (Done elsewhere), Additional history exists DIABETES-HGBA1C EVERY 6 MONTHS 05/17/2021 11/17/2020, 01/23/2020, 11/07/2019, Additional history exists CKD GFR USE SMARTSET 05188 09/19/202103/20, 03/12/2021, 12/25/2020, Additional history exists BREAST CANCER SCREENING DISCUSSION YEARLY AGES 40-75 10/01/2021 10/01/2020, 07/10/2019, 06/23/2018, Additional history exists DIABETES-FOOT EXAM 01/14/2022 01/14/2021, 0 11/07/2019, 01/01/2019, Additional history exists CKD PHOS USE SMARTSET 58796 03/12/202202/24, 11/17/2020, 12/24/2019, Additional history exists DIABETES-URINE MICROALBUMIN EVERY 12 MONTHS 03/12/2022 03/12/2021, 03/12/2021, 12/24/2019, Additional history exists CKD HGB USE SMARTSET 95686 03/20/202203/20, 03/20/2021, 03/12/2021, Additional history exists *DEPRESSION [...] radiculitis, unspecified Spinal stenosis of lumbar region with neurogenic claudication Spinal stenosis, lumbar region, with neurogenic claudication Lumbar radiculopathy Thoracic or lumbosacral neuritis or radiculitis, unspecified documented in this encounter Advance Directives Documents on File Type Date Recorded Patient Forming Mill Operator Expl 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 Camp Other Health Care Hayden r of Bitumastic Applier Princess Allen Other Health Care Pow er of Bitumastic Applier
--- OUTSIDE RECORDS SUMMARY | 2023-06-01 05:02 | External Medical Summary | Summary of Care ---
Author Name Unknown Organization [place] [address] Care Team Providers Care Poly Packer And Heat Sealer Name Role Phone Stevo Kevin Ocampomelinda Primary Care Provider Encounter Details Date Type Department Care Team Description 03/26/2021 Scan Encounter Unspecified Department <No scans attached> [...] as of this encounter (statuses as of 03/27/2021) Medications Medication Sig Dispensed Refills Start Date [...] 90 Cap 3 12/18/2019 Active DIURETIC TITRATION PLANIndications:Green Tire Inspector zahra diastolic congestive heart failure (HCC) [...] A1c goal of 7.0%-8.0% ([facility]) TAKE ONE CAPSULE BY MOUTH THREE [...] Active Amoxicillin-Pot Clavulanate 875-125 MG Oral TabletIndications:Ac douglas cystitis without hematuria Take 1 Tab by [...] as of this encounter (statuses as of 03/27/2021) Active Problems Problem Noted Date Hypotension 12/19/2020 [...] 10/14/2014 Overview: ICD-10 update of inactive term [place] filter in place 08/19/2014 History of pulmonary embolus (PE) 2013 Statin intolerance 07/16/2014 HTN, goal below 130/80 02/22/2014 Venous insufficiency 02/07/2013 ELISSA (obstructive sleep apnea) 09/16/2011 Overview: CPAP 11 cwp Mild, AHI 11.3 but with significant nocturnal hypoxemia Dicks Postsurgical hypothyroidism 06/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 documented as of this encounter (statuses as of 03/27/2021) Resolved Problems Problem Noted Date Resolved Date [...] as of this encounter (statuses as of 03/27/2021) Immunizations Name Administration Dates Next Due COVID-19 mRNA, LNP-s, No Pre serve, 2-Dose Series (Con[employer]eer) 12/29/2020,12/18/2020 Pneumococcal Polysaccharide PPV23 (Pneumovax) 08/22/2009,06/15/2006 Seasonal [...] Visit Family Medicine Magaly Morales, [facility] Breastfeeding Peer Counselor [address] [place] [address] [phone] 04/14/2021 Home Visit Family Medicine Magaly Morales, [facility] Breastfeeding Peer Counselor [address] [place] [address] [phone] 04/17/2021 Satin Finisher [facility] Rema Real LSW [address] [place] [address] [phone] 04/23/2021 Hospital Encounter Surgery Raj Ahn, DO [address] [place] [address] [phone] 04/23/2021 Surgery Surgery Raj Ahn, DO [address] [place] [address] [phone] INJECTION SPINE LUMBAR OR SACRAL 05/14/2021 Office Visit Pharmacy Dan[facility] Ordaz [address] [place] [address] 07/20/2021 Office Visit Family Medicine Kevin Whiteside, [address] [place] [address] [phone] 08/18/2021 Office Visit Pulmonary Celsa Tafoya CRNP [address] [place] [address] [phone] 10/05/2021 Office Visit Cardiology Rey Woodall MD [address] [place] [address] [phone] Health Maintenance Due Date Last Done Comments Pneumococcal Vaccine: 65+ Years (2 of 2) 2020 08/22/2009, 06/15/2006 DIABETES-EYE EXAM 04/07/2021 04/07/2020, , 02/24/2010 (Done elsewhere), Additional history exists DIABETES-HGBA1C EVERY 6 MONTHS 05/17/2021 11/17/2020, 01/23/2020, 11/07/2019, Additional history exists Influenza Vaccine (FLU shot) (#1) 2021 06/13/2020, 07/23/2019, 06/12/2018, Additional history exists CKD GFR USE SMARTSET 34858 09/19/202103/20, 03/12/2021, 12/25/2020, Additional history exists BREAST CANCER SCREENING DISCUSSION YEARLY AGES 40-75 10/01/2021 10/01/2020, 07/10/2019, 06/23/2018, Additional history exists DIABETES-FOOT EXAM 01/14/2022 01/14/2021, 0 11/07/2019, 01/01/2019, Additional history exists CKD PHOS USE SMARTSET 27645 03/12/202202/24, 11/17/2020, 12/24/2019, Additional history exists DIABETES-URINE MICROALBUMIN EVERY 12 MONTHS 03/12/2022 03/12/2021, 03/12/2021, 12/24/2019, Additional history exists CKD HGB USE SMARTSET 53099 03/20/202203/20, 03/20/2021, 03/12/2021, Additional history exists *DEPRESSION [...] on File Type Date Recorded Patient Chief Ophthalmic Technician Expl 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 Name Relationship Healthcare Agent Relationship Communication Galdino Poorman Other Health Care [facility] r of Filament Coil Winder Princess Allen Other Health Care Pow er of Filament Coil Winder
--- OUTSIDE RECORDS SUMMARY | 2023-06-01 05:02 | External Medical Summary | Summary of Care ---
Author Name Unknown Organization [facility] Address [place] [address] Care Team Providers Care Director Clinical Pharmacology Name Role Phone Kevin Whiteside DO Primary Care Provider Reason for Visit * Reason Onset Date Comments [facility]: Maintenance 03/26/2021 Encounter Details Date Type Department Care Team Description 03/26/2021 Scheduled Telephone [facility], [facility] [address] [place] [address] Coordinator, [facility] [address] [place] [address] [phone] Allergies Active Allergy Reactions Severity Noted Date Comments Codeine 07/08/2014 hallucination Pollen 05/18/2019 Heparin 09/04/2009 Heparin Induced Thrombocytopenia Hydrocodone Neuro complications (Please comment) 07/28/2020 Empagliflozin Other (Please comment) Medium 05/17/2018 3 yeast infections in 6 weeks after starting Morphine And Related 09/16/1997 Hallucinations Tetanus Toxoid Other (Please comment) 06/15/2011 Passed out documented as of this encounter (statuses as of 03/26/2021) Medications Medication Sig Dispensed Refills Start Date [...] 90 Cap 3 12/18/2019 Active DIURETIC TITRATION PLANIndications:Ton Cylinder Inspector 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 1 Each 0 04/08/2020 Active Blood Glucose Monitoring Suppl (Beyond[employer] ULTRA 2) w/Device KIT Use to test [...] 7.0%-8.0% ([facility]) Inject 60 Units under [...] 7.0%-8.0% ([facility]) Inject 3 mg under [...] as of this encounter (statuses as of 03/26/2021) Active Problems Problem Noted Date Hypotension 12/19/2020 [...] 10/14/2014 Overview: ICD-10 update of inactive term [place] filter in place 08/19/2014 History of pulmonary embolus (PE) 2013 Statin intolerance 07/16/2014 HTN, goal below 130/80 02/22/2014 Venous insufficiency 02/07/2013 ELISSA (obstructive sleep apnea) 09/16/2011 Overview: CPAP 11 cwp Mild, AHI 11.3 but with significant nocturnal hypoxemia Dicks Postsurgical hypothyroidism 06/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 documented as of this encounter (statuses as of 03/26/2021) Resolved Problems Problem Noted Date Resolved Date [...] as of this encounter (statuses as of 03/26/2021) Immunizations Name Administration Dates Next Due COVID-19 [...] Telephone Encounter - Dain Ireland DO - 03/26/2021 12:08 PM EDT Patient should call with changes. Keep home visit tomorrow. * Telephone Encounter - Karyn Clarke LPN - 03/26/2021 11:51 AM EDT Phone call f/u to patient Continues to have lower abdominal pain Describes it as someone squeezing her too hard Rating pain 4-5/10 Aggravating factor: any movement Feels it is more from her back Saw Interventional Pain yesterday States her stomach is not hard or distended Getting injection 04/23 Bowels moving normally Urinating normally Denies any fever Had some nausea last evening No vomiting Taking abx with food LINDA PERSAUD had HV with patient tomorrow documented in this encounter Plan of Treatment Upcoming Encounters Date Type Specialty Care Team Description 03/27/2021 Home Visit [facility] Vera Capellan RN [address] [place] [address] [phone] 04/02/2021 Home Visit Family Medicine Magaly Morales, [facility] Forest Resource Specialist [address] [place] [facility] [place] [address] 04/14/2021 Home Visit Family Medicine Magaly Morales, [facility] Forest Resource Specialist [address] [place] [address] [phone] 04/17/2021 Fruit Buyer [facility] Rema Real, GERM DRIER [address] [place] [address] [phone] 04/23/2021 Hospital Encounter Surgery Raj Ahn, DO [address] [place] [address] [phone] 04/23/2021 Surgery Surgery CouRaj soto, DO [address] [place] [address] [phone] INJECTION SPINE LUMBAR OR SACRAL 05/14/2021 Office Visit Pharmacy [facility] [address] [place] [address] 07/20/2021 Office Visit Family Medicine Kevin Whiteside, [address] [place] [address] [phone] 08/18/2021 Office Visit Pulmonary Celsa Tafoya CRNP [address] [place] [address] [phone] 10/05/2021 Office Visit Cardiology Rey Woodall MD [address] [place] [address] [phone] Health Maintenance Due Date Last Done Comments Pneumococcal Vaccine: 65+ Years (2 of 2) 2020 08/22/2009, 06/15/2006 DIABETES-EYE EXAM 04/07/2021 04/07/2020, , 02/24/2010 (Done elsewhere), Additional history exists DIABETES-HGBA1C EVERY 6 MONTHS 05/17/2021 11/17/2020, 01/23/2020, 11/07/2019, Additional history exists Influenza Vaccine (FLU shot) (#1) 2021 06/13/2020, 07/23/2019, 06/12/2018, Additional history exists CKD GFR USE SMARTSET 42528 09/19/202103/20, 03/12/2021, 12/25/2020, Additional history exists BREAST CANCER SCREENING DISCUSSION YEARLY AGES 40-75 10/01/2021 10/01/2020, 07/10/2019, 06/23/2018, Additional history exists DIABETES-FOOT EXAM 01/14/2022 01/14/2021, 0 11/07/2019, 01/01/2019, Additional history exists CKD PHOS USE SMARTSET 18317 03/12/202202/24, 11/17/2020, 12/24/2019, Additional history exists DIABETES-URINE MICROALBUMIN EVERY 12 MONTHS 03/12/2022 03/12/2021, 03/12/2021, 12/24/2019, Additional history exists CKD HGB USE SMARTSET 73929 03/20/202203/20, 03/20/2021, 03/12/2021, Additional history exists *DEPRESSION [...] on File Type Date Recorded Patient Sales Demonstrator Expl 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 Camp Other Health Care Hayden r of Calibrator Barometers Princess Allen Other Health Care Pow er of Calibrator Barometers
--- OUTSIDE RECORDS SUMMARY | 2023-06-01 05:02 | External Medical Summary | Summary of Care ---
Author Name Unknown Organization [place] [address] Care Team Providers Care Safety Equipment Testing Specialist Name Role Phone Stevo Kevin Ocampomelinda Primary Care Provider Encounter Details Date Type Department Care Team Description 03/27/2021 Scan Encounter Unspecified Department <No scans attached> [...] as of this encounter (statuses as of 03/31/2021) Medications Medication Sig Dispensed Refills Start Date [...] goal of 7.0%-8.0% ([facility]) Inject 60 Units under the [...] goal of 7.0%-8.0% ([facility]) Inject 3 mg under the [...] as of this encounter (statuses as of 03/31/2021) Active Problems Problem Noted Date Hypotension 12/19/2020 [...] 10/14/2014 Overview: ICD-10 update of inactive term [place] filter in place 08/19/2014 History of pulmonary embolus (PE) 2013 Statin intolerance 07/16/2014 HTN, goal below 130/80 02/22/2014 Venous insufficiency 02/07/2013 ELISSA (obstructive sleep apnea) 09/16/2011 Overview: CPAP 11 cwp Mild, AHI 11.3 but with significant nocturnal hypoxemia Dicks Postsurgical hypothyroidism 06/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 documented as of this encounter (statuses as of 03/31/2021) Resolved Problems Problem Noted Date Resolved Date [...] as of this encounter (statuses as of 03/31/2021) Immunizations Name Administration Dates Next Due COVID-19 [...] Visit Family Medicine Magaly Morales, Community Health Analytics Analyst [address] [place] [address] [phone] 04/14/2021 Home Visit Family Medicine Magaly Morales, Community Health Analytics Analyst [address] [place] [address] [phone] 04/17/2021 Development Editor [facility] Rema Real, JEWEL BEARING TURNER [address] [place] [address] [phone] 04/23/2021 Hospital Encounter Surgery CousinRaj travis, DO [address] [place] [address] [phone] 04/23/2021 Surgery Surgery CousinRaj travis, DO [address] [place] [address] [phone] INJECTION SPINE LUMBAR OR SACRAL 05/14/2021 Office Visit Pharmacy [facility] [place] [address] [place] [address] 07/20/2021 Office Visit Family Medicine Kevin Whiteside DO [address] [place] [address] [phone] 08/18/2021 Office Visit Pulmonary Celsa Tafoya CRNP [address] [place] [address] [phone] 10/05/2021 Office Visit Cardiology Rey Woodall MD [address] [place] [address] [phone] Health Maintenance Due Date Last Done Comments Pneumococcal Vaccine: 65+ Years (2 of 2) 2020 08/22/2009, 06/15/2006 DIABETES-EYE EXAM 04/07/2021 04/07/2020, , 02/24/2010 (Done elsewhere), Additional history exists DIABETES-HGBA1C EVERY 6 MONTHS 05/17/2021 11/17/2020, 01/23/2020, 11/07/2019, Additional history exists Influenza Vaccine (FLU shot) (#1) 2021 06/13/2020, 07/23/2019, 06/12/2018, Additional history exists CKD GFR USE SMARTSET 99129 09/19/202103/20, 03/12/2021, 12/25/2020, Additional history exists BREAST CANCER SCREENING DISCUSSION YEARLY AGES 40-75 10/01/2021 10/01/2020, 07/10/2019, 06/23/2018, Additional history exists DIABETES-FOOT EXAM 01/14/2022 01/14/2021, 0 11/07/2019, 01/01/2019, Additional history exists CKD PHOS USE SMARTSET 59395 03/12/202202/24, 11/17/2020, 12/24/2019, Additional history exists DIABETES-URINE MICROALBUMIN EVERY 12 MONTHS 03/12/2022 03/12/2021, 03/12/2021, 12/24/2019, Additional history exists CKD HGB USE SMARTSET 14241 03/20/202203/20, 03/20/2021, 03/12/2021, Additional history exists *DEPRESSION [...] Documents on File Type Date Recorded Patient Peritoneal Dialysis Registered Nurse Expl 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 Camp Other Health Care Hayden r of Seamstress Fitter Princess Allen Other Health Care Pow er of Seamstress Fitter
--- OUTSIDE RECORDS SUMMARY | 2023-06-01 05:02 | External Medical Summary | Summary of Care ---
Author Name Unknown Organization [facility] Address [place] [address] Care Team Providers Care Paper Cone Maker Name Role Phone Kevin Whiteside DO Primary Care Provider Reason for Visit * Reason Onset Date Comments [facility]: Maintenance 03/31/2021 Encounter Details Date Type Department Care Team Description 03/31/2021 Scheduled Telephone [facility], [facility] [address] [place] [address] Coordinator, [facility] [address] [place] [address] [phone] Allergies Active Allergy Reactions Severity Noted Date [...] 0 04/08/2020 Active Blood Glucose Monitoring Suppl (Journalism Online ULTRA 2) w/Device KIT Use to test [...] ([facility]) Inject 3 mg under the skin once [...] mRNA, LNP-s, No Pre serve, 2-Dose Series (BlueMessaging) 12/29/2020,12/18/2020 Pneumococcal Polysaccharide PPV23 (Pneumovax) 08/22/2009,06/15/2006 Seasonal [...] Telephone Encounter - Lisandra Thomas LPN - 03/31/2021 12:03 PM EDT ED follow up call. Left message requesting return call. Provided call back number , option 3. documented in this encounter Plan of Treatment Upcoming Encounters Date Type Specialty Care Team Description 04/02/2021 Home Visit Family Medicine Magaly Morales, Community Health Wastewater Treatment Plant Attendant [address] [place] [address] [phone] 04/03/2021 Office Visit Family Medicine Tahmina Samuel CRNP [address] [place] [address] [phone] 04/14/2021 Home Visit Family Medicine Magaly Morales, Community Health Wastewater Treatment Plant Attendant [address] [place] [address] [phone] 04/17/2021 Home Visit [facility] Rema Real LSW [address] [place] [address] [phone] 04/23/2021 Hospital Encounter Surgery Raj Ahn DO [address] [place] [address] [phone] 04/23/2021 Surgery Surgery Raj Ahn DO [address] [place] [address] [phone] INJECTION SPINE LUMBAR OR SACRAL 05/14/2021 Office Visit Pharmacy [facility] [place] [address] [place] [address] 07/20/2021 Office Visit Family Medicine Kevin Whiteside DO [address] [place] [address] [phone] 08/18/2021 Office Visit Pulmonary Celsa Tafoya CRNP [address] [place] [address] [phone] 10/05/2021 Office Visit Cardiology Rey Woodall MD [...] Additional history exists CKD GFR USE SMARTSET 95938 09/19/202103/20, 03/12/2021, 12/25/2020, Additional history exists BREAST CANCER SCREENING DISCUSSION YEARLY AGES 40-75 10/01/2021 10/01/2020, 07/10/2019, 06/23/2018, Additional history exists DIABETES-FOOT EXAM 01/14/2022 01/14/2021, 0 11/07/2019, 01/01/2019, Additional history exists CKD PHOS USE SMARTSET 81132 03/12/202202/24, 11/17/2020, 12/24/2019, Additional history exists DIABETES-URINE MICROALBUMIN EVERY 12 MONTHS 03/12/2022 03/12/2021, 03/12/2021, 12/24/2019, Additional history exists CKD HGB USE SMARTSET 13662 03/20/202203/20, 03/20/2021, 03/12/2021, Additional history exists *DEPRESSION [...] Documents on File Type Date Recorded Patient Extrusion Press Supervisor Expl 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 Camp Other Health Care Hayden r of Manager Membership Princess Allen Other Health Care Pow er of Manager Membership
--- OUTSIDE RECORDS SUMMARY | 2023-06-01 05:02 | External Medical Summary | Summary of Care ---
Author Name Unknown Organization [facility] Address [place] [address] Care Team Providers Care Double Backer Name Role Phone Kevin Whiteside DO Primary Care Provider Reason for Visit * Reason Onset Date Comments [facility]: Maintenance 03/25/2021 Encounter Details Date Type Department Care Team Description 03/25/2021 Scheduled Telephone [facility], [facility] [email or web address] [place] [address] Coordinator, [facility] [address] [place] [address] [phone] Allergies Active Allergy Reactions Severity Noted Date [...] 90 Cap 3 12/18/2019 Active DIURETIC TITRATION PLANIndications:Bull Wheel Worker 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 1 Each 0 04/08/2020 Active Blood Glucose Monitoring Suppl (SmartCloud ULTRA 2) w/Device KIT Use to test [...] goal of 7.0%-8.0% ([facility]) Inject 3 mg under the skin once a week. 2 mL 5 03/19/2021 Active Nerve Pain Relief Sublingual Tablet SublingualIndication s:pt taking Nervive, nerve relief tablets at bedtime Place under the tongue. Indications: pt taking Nervive, nerve relief tablets at bedtime 0 Active Amoxicillin-Pot Clavulanate 875-125 MG Oral TabletIndications:Ac sycuan cystitis without hematuria Take 1 Tab by [...] Telephone Encounter - Karyn Clarke LPN - 03/25/2021 11:39 AM EDT 24 hour acute visit f/u phone call abx prescribed yesterday No answer Left message requesting return call documented in this encounter Plan of Treatment Upcoming Encounters Date Type Specialty Care Team Description 03/25/2021 Office Visit Pain Management Raj Ahn DO [address] [place] [address] [phone] 03/26/2021 Scheduled Telephone [facility] Coal Hauler Operator, [facility] [address] [place] [address] [phone] 03/27/2021 Home Visit [facility] Vera Capellan RN [address] [place] [address] [phone] 04/02/2021 Home Visit Family Medicine Magaly Morales, Community Health Foreign Food Specialty Cook [address] [place] [address] [phone] 04/14/2021 Home Visit Family Medicine Magaly Morales, Community Health Foreign Food Specialty Cook [address] [place] [address] [phone] 04/17/2021 Campus Administrative Assistant [facility] Rema Real LSW [address] [place] [address] [phone] 05/14/2021 Office Visit Pharmacy [facility] [place] [address] [place] [address] 07/20/2021 Office Visit Family Medicine Kevin Whiteside DO [address] [place] [address] [phone] 08/18/2021 Office Visit Pulmonary Celsa Tafoya CRNP [address] [place] [address] [phone] 10/05/2021 Office Visit Cardiology Rey Woodall MD [address] [place] [address] [phone] Health Maintenance Due Date Last Done Comments Pneumococcal Vaccine: 65+ Years (2 of 2) 2020 08/22/2009, 06/15/2006 DIABETES-EYE EXAM 04/07/2021 04/07/2020, , 02/24/2010 (Done elsewhere), Additional history exists DIABETES-HGBA1C EVERY 6 MONTHS 05/17/2021 11/17/2020, 01/23/2020, 11/07/2019, Additional history exists CKD GFR USE SMARTSET 61628 09/19/202103/20, 03/12/2021, 12/25/2020, Additional history exists BREAST CANCER SCREENING DISCUSSION YEARLY AGES 40-75 10/01/2021 10/01/2020, 07/10/2019, 06/23/2018, Additional history exists DIABETES-FOOT EXAM 01/14/2022 01/14/2021, 0 11/07/2019, 01/01/2019, Additional history exists CKD PHOS USE SMARTSET 06448 03/12/202202/24, 11/17/2020, 12/24/2019, Additional history exists DIABETES-URINE MICROALBUMIN EVERY 12 MONTHS 03/12/2022 03/12/2021, 03/12/2021, 12/24/2019, Additional history exists CKD HGB USE SMARTSET 57865 03/20/202203/20, 03/20/2021, 03/12/2021, Additional history exists *DEPRESSION [...] Documents on File Type Date Recorded Patient Gasoline Attendant Expl 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 Camp Other Health Care Hayden r of Civil Laboratory Technician Princess Allen Other Health Care Pow er of Civil Laboratory Technician
--- OUTSIDE RECORDS SUMMARY | 2023-06-01 05:02 | External Medical Summary | Summary of Care ---
Author Name Unknown Organization [facility] Address [facility] [place] [address] Care Team Providers Care Second Class Welder Name Role Phone Kevin Whiteside DO Primary Care Provider Reason for Visit * Reason Onset Date Comments Follow Up 03/23/2021 Encounter Details Date Type Department Care Team Description 03/23/2021 Telephone Family Practice [facility] [address] [place] [address] Krissy Baker DO [address] [facility] [place] [address] Follow Up Allergies Active Allergy Reactions Severity Noted Date [...] 90 Cap 3 12/18/2019 Active DIURETIC TITRATION PLANIndications:Therapist Occupational 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 1 Each 0 04/08/2020 Active Blood Glucose Monitoring Suppl (The ADEXTOUCH ULTRA 2) w/Device KIT Use to test [...] Active Amoxicillin-Pot Clavulanate 875-125 MG Oral TabletIndications:Ac tun[place] cystitis without hematuria Take 1 Tab by [...] 10/14/2014 Overview: ICD-10 update of inactive term [place] filter in place 08/19/2014 History of pulmonary [...] mRNA, LNP-s, No Pre serve, 2-Dose Series (Snatch that Jerky) 12/29/2020,12/18/2020 Pneumococcal Polysaccharide PPV23 (Pneumovax) 08/22/2009,06/15/2006 Seasonal [...] encounter Miscellaneous Notes * Telephone Encounter - Ariela Mccrary RN - 03/27/2021 2:57 PM EDT Called and asked for return call. Message sent to pt via letter to address on file. * Telephone Encounter - Hortencia Aguirre LPN - 03/24/2021 8:27 AM EDT Message left for pt to return call. * Telephone Encounter - Regina Gee LPN - 03/23/2021 1:42 PM EDT Attempted call patient. No answer. Left message for pt to call back into the office. * Telephone Encounter - Krissy Baker DO - 03/23/2021 9:52 AM EDT Please call patient How is she feeling today? Labs from Tuesday didn't look too bad If no improvement would recommend MRI brain which we can order for worsening dizziness JEFFI PCP, [facility] documented in this encounter Plan of Treatment Upcoming Encounters Date Type Specialty Care Team Description 04/02/2021 Home Visit Family Medicine Magaly Morales, Community Health Logistics Operations Manager [address], [place] [address] 04/14/2021 Home Visit Family Medicine Magaly Morales, Community Health Logistics Operations Manager [address] [place] [address] [phone] 04/17/2021 Reconciliation Specialist [facility] Rema Real, MONITOR CAR OPERATOR [address] [place] [address] [phone] 04/23/2021 Hospital Encounter Surgery CouRaj soto, DO [address] [place] [address] [phone] 04/23/2021 Surgery Surgery Raj Ahn, DO [address] [place] [address] [phone] INJECTION SPINE LUMBAR OR SACRAL 05/14/2021 Office Visit Pharmacy [facility] [place] [address] [place] [address] 07/20/2021 Office Visit Family Medicine Kevin Whiteside DO [address] [place] [address] [phone] 08/18/2021 Office Visit Pulmonary Celsa Tafoya CRNP [address] [place] [address] [phone] 10/05/2021 Office Visit Cardiology Rey Woodall MD [address] [place] [address] [phone] Health Maintenance Due Date Last Done Comments Pneumococcal Vaccine: 65+ Years (2 of 2) 2020 08/22/2009, 06/15/2006 DIABETES-EYE EXAM 04/07/2021 04/07/2020, , 02/24/2010 (Done elsewhere), Additional history exists DIABETES-HGBA1C EVERY 6 MONTHS 05/17/2021 11/17/2020, 01/23/2020, 11/07/2019, Additional history exists Influenza Vaccine (FLU shot) (#1) 2021 06/13/2020, 07/23/2019, 06/12/2018, Additional history exists CKD GFR USE SMARTSET 39795 09/19/202103/20, 03/12/2021, 12/25/2020, Additional history exists BREAST CANCER SCREENING DISCUSSION YEARLY AGES 40-75 10/01/2021 10/01/2020, 07/10/2019, 06/23/2018, Additional history exists DIABETES-FOOT EXAM 01/14/2022 01/14/2021, 0 11/07/2019, 01/01/2019, Additional history exists CKD PHOS USE SMARTSET 11420 03/12/202202/24, 11/17/2020, 12/24/2019, Additional history exists DIABETES-URINE MICROALBUMIN EVERY 12 MONTHS 03/12/2022 03/12/2021, 03/12/2021, 12/24/2019, Additional history exists CKD HGB USE SMARTSET 87439 03/20/202203/20, 03/20/2021, 03/12/2021, Additional history exists *DEPRESSION [...] Documents on File Type Date Recorded Patient Jointer Machine Operator Expl 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 Camp Other Health Care Hayden r of Investment 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 Prinecss Allen Other Health Care Pow er of Investment 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
--- OUTSIDE RECORDS SUMMARY | 2023-06-01 05:03 | External Medical Summary | Summary of Care ---
Author Name Unknown Organization [facility] Address [place] [address] Care Team Providers Care Chemical Engraver Name Role Phone Kevin Whiteside DO Primary Care Provider Reason for Visit * Reason Onset Date Comments [facility]: Acute 03/24/2021 Encounter Details Date Type Department Care Team Description 03/24/2021 Telephone [facility], [facility] [address] [facility] [place] [address] [facility], Nurse [facility] [address] [facility] [place] [address] [phone] [facility]: Acute Allergies Active Allergy [...] 90 Cap 3 12/18/2019 Active DIURETIC TITRATION PLANIndications:Attendant Sales 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 1 Each 0 04/08/2020 Active Blood Glucose Monitoring Suppl ([employer] ULTRA 2) w/Device KIT Use to test BG values 1 Kit 0 05/20/2020 Active Glucose Blood (EpicTopicTOUCH ULTRA BLUE) STRP Check sugars 3-4 times [...] 7.0%-8.0% ([facility]) Inject 3 mg under the skin once a week. 2 mL 5 03/19/2021 Active Nerve Pain Relief Sublingual Tablet SublingualIndication s:pt taking Nervive, nerve relief tablets at bedtime Place under the tongue. Indications: pt taking Nervive, nerve relief tablets at bedtime 0 Active Amoxicillin-Pot Clavulanate 875-125 MG Oral TabletIndications:Ac kaguy[place] cystitis without hematuria Take 1 Tab by [...] 10/14/2014 Overview: ICD-10 update of inactive term [place] filter in place 08/19/2014 History of [...] Telephone Encounter - Maris Mariscal RN - 03/24/2021 11:05 AM EDT TT message from Brooke Jose RN. Will make a HV today at 5:00 pm to evaluate pt. Call to pt to make aware. Pt agreeable to appt time. * Telephone Encounter - Dain Ireland DO - 03/24/2021 10:47 AM EDT [facility] Phone Encounter Reviewed phone message. I agree w/ the advice offered via phone by our intake nursing team. Please let me know via encounter or TT message if there is any change Thank you in advance, I appreciate it. Dain Ireland DO [facility] Practical Ministries Professor - [facility] [place] 03/24/2021 * Telephone Encounter - Maris Mariscal RN - 03/24/2021 10:14 AM EDT [facility] fish cutting machine operator Acute Call Date: 03/24/2021 Time: 10:15 AM Name: Stephanie Camp : 1955 Caller: patient Relationship to pt: No chief complaint on file. HPI: Stephanie Camp is a 65 year old female that is calling [facility] Intake to report generalized weakness and body aches. Nursing Assessment: Patient's chief complaint for this call: Pt states that she has been feeling poorly for over a week. Had office visit with PCP on 03/20/21 for same symptoms. Pt dx with UTI and prescribed amoxcillian. Pt reports weakness, fatigue, occasional headache, dizziness, lightheadedness, and a low grade tempof 99.0. Notes BLE edema. Pt states that she is very unsteady on feet. Appetite poor. Blood sugar 300 this am. Pain Has pain Pain level: 7 Location: generalized all over pain Baseline Assessment Able to performing ADLs at baseline (walking, daily tasks, etc.): No Chief Complaint is related to a chronic condition: No Patient prescribed oxygen? Yes, 2L/min, using as prescribed. Patient has been ordered DME equipment (assistive devices, respiratory equipment, etc.): Unknown Medication Reconciliation: (See medication list) Received covid shot: yes, both doses Taking medication as ordered: Yes Medications ordered/taking to treat reason for call: Yes, PRN medication(s) amoxcillin Heart failure symptoms: No COPD exacerbation symptoms: No Treatment/Plan: (need to report) Level of call: Acute Appointment scheduled for same day: Yes Leadership Program Internship Call back instructions provided to patient. documented in this encounter Plan of Treatment Upcoming Encounters Date Type Specialty Care Team Description 03/24/2021 Home Visit [facility] Brooke Joes RN [address] [place] [address] [phone] 03/25/2021 Office Visit Pain Management Raj Ahn DO [address] [place] [address] [phone] 03/25/2021 Scheduled Telephone [facility] Technical Recruiter, [facility] [address] [place] [address] [phone] 03/26/2021 Scheduled Telephone [facility] Technical Recruiter, [facility] [address] [place] [address] [phone] 03/27/2021 Home Visit [facility] Vera Capellan RN [address] [place] [address] [phone] 04/14/2021 Home Visit Family Medicine Magaly Morales, Community Health Leader Writer [address] [place] [address] [phone] 04/17/2021 Acid Condenser [facility] Rema Real LSW [address] [place] [address] [phone] 05/14/2021 Office Visit Pharmacy [facility] [place] [address] [place] [address] 07/20/2021 Office Visit Family Medicine Kevin Whiteside DO [address] [place] [address] [phone] 08/18/2021 Office Visit Pulmonary Celsa Tafoya CRNP [address] [place] [address] [phone] 10/05/2021 Office Visit Cardiology Rey Woodall MD [address] [place] [address] [phone] Health Maintenance Due Date Last Done Comments Pneumococcal Vaccine: 65+ Years (2 of 2) 2020 08/22/2009, 06/15/2006 DIABETES-EYE EXAM 04/07/2021 04/07/2020, , 02/24/2010 (Done elsewhere), Additional history exists DIABETES-HGBA1C EVERY 6 MONTHS 05/17/2021 11/17/2020, 01/23/2020, 11/07/2019, Additional history exists CKD GFR USE SMARTSET 14060 09/19/202103/20, 03/12/2021, 12/25/2020, Additional history exists BREAST CANCER SCREENING DISCUSSION YEARLY AGES 40-75 10/01/2021 10/01/2020, 07/10/2019, 06/23/2018, Additional history exists DIABETES-FOOT EXAM 01/14/2022 01/14/2021, 0 11/07/2019, 01/01/2019, Additional history exists CKD PHOS USE SMARTSET 37736 03/12/202202/24, 11/17/2020, 12/24/2019, Additional history exists DIABETES-URINE MICROALBUMIN EVERY 12 MONTHS 03/12/2022 03/12/2021, 03/12/2021, 12/24/2019, Additional history exists CKD HGB USE SMARTSET 06021 03/20/202203/20, 03/20/2021, 03/12/2021, Additional history exists *DEPRESSION [...] on File Type Date Recorded Patient Director Of Donor Relations Expl 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
--- OUTSIDE RECORDS SUMMARY | 2023-06-01 05:03 | External Medical Summary | Summary of Care ---
Author Name Unknown Organization [facility] Address [place] [address] Care Team Providers Care Video News Editor Name Role Phone Kevin Whiteside DO Primary Care Provider Reason for Visit * Reason Onset Date Comments [facility]: Acute 03/24/2021 Encounter Details Date Type Department Care Team Description 03/24/2021 Telephone [facility], [facility] [address] [facility] [place] [address] [facility], Nurse [facility] [address] [facility] [place] [address] [phone] [facility]: Acute Allergies Active Allergy [...] 90 Cap 3 12/18/2019 Active DIURETIC TITRATION PLANIndications:Dryer Operator 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 1 Each 0 04/08/2020 Active Blood Glucose Monitoring Suppl (NOZA ULTRA 2) w/Device KIT Use to test BG values 1 Kit 0 05/20/2020 Active Glucose Blood (HundredApplesTOUCH ULTRA BLUE) STRP Check sugars 3-4 times [...] goal of 7.0%-8.0% ([facility]) Inject 3 mg under the skin once a week. 2 mL 5 03/19/2021 Active Nerve Pain Relief Sublingual Tablet SublingualIndication s:pt taking Nervive, nerve relief tablets at bedtime Place under the tongue. Indications: pt taking Nervive, nerve relief tablets at bedtime 0 Active Amoxicillin-Pot Clavulanate 875-125 MG Oral TabletIndications:Ac [place] cystitis without hematuria Take 1 Tab by [...] 10/14/2014 Overview: ICD-10 update of inactive term [place] filter in place 08/19/2014 History of pulmonary [...] Ireland DO - 03/24/2021 10:47 AM EDT [facility] Phone Encounter Reviewed phone message. I agree w/ the advice offered via phone by our intake nursing team. Please let me know via encounter or TT message if there is any change Thank you in advance, I appreciate it. Dain Ireland DO [facility] Energy [facility] - [facility] 03/24/2021 * Telephone Encounter - Maris Maricsal RN - 03/24/2021 10:14 AM EDT [facility] pill machine operator Acute Call Date: 03/24/2021 Time: [...] Acute Appointment scheduled for same day: Yes Party Plan Sales Host/Hostess Call back instructions provided to patient. documented in this encounter Plan of Treatment Upcoming Encounters Date Type Specialty Care Team Description 03/25/2021 Office Visit Pain Management Raj Ahn, [address] [place] [address] [phone] 03/27/2021 Home Visit [facility] Vera Capellan RN [address] [place] [address] [phone] 04/14/2021 Home Visit Family Medicine Magaly Morales, Community [facility] Customer Response 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 [address] [place] [address] [phone] 04/17/2021 Reo Asset Manager [facility] Rema Real LSW [address] [place] [address] [phone] 05/14/2021 Office Visit Pharmacy Orlin [facility] [place] [address] [place] [address] 07/20/2021 Office Visit Family Medicine Kevin Whiteside DO [address] [place] [address] [phone] 08/18/2021 Office Visit Pulmonary Celsa Tafoya CRNP [address] [place] [address] [phone] 10/05/2021 Office Visit Cardiology Rey Woodall MD [address] [place] [address] [phone] Health Maintenance Due Date Last Done Comments Pneumococcal Vaccine: 65+ Years (2 of 2) 2020 08/22/2009, 06/15/2006 DIABETES-EYE EXAM 04/07/2021 04/07/2020, , 02/24/2010 (Done elsewhere), Additional history exists DIABETES-HGBA1C EVERY 6 MONTHS 05/17/2021 11/17/2020, 01/23/2020, 11/07/2019, Additional history exists CKD GFR USE SMARTSET 32956 09/19/202103/20, 03/12/2021, 12/25/2020, Additional history exists BREAST CANCER SCREENING DISCUSSION YEARLY AGES 40-75 10/01/2021 10/01/2020, 07/10/2019, 06/23/2018, Additional history exists DIABETES-FOOT EXAM 01/14/2022 01/14/2021, 0 11/07/2019, 01/01/2019, Additional history exists CKD PHOS USE SMARTSET 24120 03/12/202202/24, 11/17/2020, 12/24/2019, Additional history exists DIABETES-URINE MICROALBUMIN EVERY 12 MONTHS 03/12/2022 03/12/2021, 03/12/2021, 12/24/2019, Additional history exists CKD HGB USE SMARTSET 77007 03/20/202203/20, 03/20/2021, 03/12/2021, Additional history exists *DEPRESSION [...] Documents on File Type Date Recorded Patient Sheet Metal Operator Expl 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
--- OUTSIDE RECORDS SUMMARY | 2023-06-01 05:03 | External Medical Summary ---
Author Name Unknown Address Unknown Organization [id number]:LAB[facility]AT[facility] - [address] [place] [address] Laboratory Report Ordering Provider Test Date Status JILLIAN DELACRUZ 03/20/2021 15:37:59 Final Observation Date Value Abnormality Reference (Units ) Status Procalcitonin [Mass/volume] in Serum or Plasma by Immunoassay 03/20/2021 15:37:59 0.11 Above high normal <0.10 (ng/mL) Final Performing Location [facility] - [address] [place] [address]
--- OUTSIDE RECORDS SUMMARY | 2023-06-01 05:03 | External Medical Summary | Summary of Care ---
Author Name Unknown Organization [place] [address] Care Team Providers Care Oss Architect Name Role Phone Kevin Whiteside DO Primary Care Provider Reason for Visit * Reason Comments [facility]: Acute weakness, pain Encounter Details Date Type Department Care Team Description 03/24/2021 Home Visit [facility], [facility] 132 [facility] [place] [address] Brooke Jose, RN 132 [facility] [place] [address] [phone] Advanced care planning/counseling discussion* Allergies Active Allergy [...] Cap 3 12/18/2019 Active DIURETIC TITRATION PLANIndications: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 1 Each 0 04/08/2020 Active Blood Glucose Monitoring Suppl (Sheology ULTRA 2) w/Device KIT Use to test [...] 10/14/2014 Overview: ICD-10 update of inactive term [place] filter in place 08/19/2014 History of pulmonary [...] in this encounter Progress Notes * Brooke Jose, RN - 03/24/2021 6:05 PM EDT [facility] Radial Drill Press Set Up OperatorBaker Doughnut Visit Date: 03/24/2021 Time: 6:05 PM Name: Stephanie Camp : 1955 Current Concerns: weakness, poor balance, [...] to ambulate at all times Referral to [facility] for home safety assessment Drink 4 bottles of water daily Eat three meals daily Ck bsgs qid and record Do NOT take nap without use of o2 2l and cpap Tramadol and apap for pain Keep paths clear of clutter [facility] referral for home safety assessment Home Interventions Provided: Oral Medications: Antibiotic Consulted PCP/Specialist Reinforced current Plan of Care, including self-management and medication regimen Updated Advanced Care Planning Note [facility] ([facility]) Fall Risk Assessment [...] bsgs >350<80 Patient Needs to Remember: Call [facility] with red flags Referrals Needed: none [...] a vegetable" (define below);Unable to feed themselves;Prolonged custodial stay (define below);Prolonged mechanical ventilation (define below);Prolonged hospital stay (define below) (03/24/2021 6:48 PM) "Being a vegetable", patient defines as:: no possible way that i can come back (03/24/2021 6:48 PM) Prolonged hospital stay, patient defines as:: no hope of ever gettig out of hospital (03/24/2021 6:48 PM) Prolonged custodial stay, patient defines as:: no hope of [...] life (03/24/2021 6:52 PM) Source: Content from [employer] 15 minutes spent in direct [id number] discussion today, Pt has had extensive treatment for medical issues in past and has been on ventilator, had trach, feeding tube, iv fluids and possibly CPR but she is not able to say for certain, but states, ''I twice.'' She is comfortable discussing decisions and is knowledgeable when making medical decisions. Brooke Jose RN documented in this encounter Plan of Treatment Upcoming Encounters Date Type Specialty Care Team Description 03/25/2021 Office Visit Pain Management Raj Ahn DO [address] [place] [address] [phone] 03/25/2021 Scheduled Telephone [facility], [facility] [address] [place] [address] [phone] 03/26/2021 Scheduled Telephone [facility], [facility] [address] [place] [address] [phone] 03/27/2021 Home Visit [facility] Vera Capellan RN [address] [place] [address] [phone] 04/14/2021 Home Visit Family Medicine Magaly Morales, [facility] Middle [employer] Technology Teacher [address] [facility] [address] 04/17/2021 Senior Wind Turbine Technician [facility] Rema Real LSW [address] [place] [address] [phone] 05/14/2021 Office Visit Pharmacy Or[facility], [facility] [place] [address] [place] [address] 07/20/2021 Office Visit Family Medicine Kevin Whiteside DO [address] [place] [address] [phone] 08/18/2021 Office Visit Pulmonary Celsa Tafoya CRNP [address] [place] [address] [phone] 10/05/2021 Office Visit Cardiology Rey Woodall MD [address] [place] [address] [phone] Health Maintenance Due Date Last Done Comments Pneumococcal Vaccine: 65+ Years (2 of 2) 2020 08/22/2009, 06/15/2006 DIABETES-EYE EXAM 04/07/2021 04/07/2020, , 02/24/2010 (Done elsewhere), Additional history exists DIABETES-HGBA1C EVERY 6 MONTHS 05/17/2021 11/17/2020, 01/23/2020, 11/07/2019, Additional history exists CKD GFR USE SMARTSET 17372 09/19/202103/20, 03/12/2021, 12/25/2020, Additional history exists BREAST CANCER SCREENING DISCUSSION YEARLY AGES 40-75 10/01/2021 10/01/2020, 07/10/2019, 06/23/2018, Additional history exists DIABETES-FOOT EXAM 01/14/2022 01/14/2021, 0 11/07/2019, 01/01/2019, Additional history exists CKD PHOS USE SMARTSET 56757 03/12/202202/24, 11/17/2020, 12/24/2019, Additional history exists DIABETES-URINE MICROALBUMIN EVERY 12 MONTHS 03/12/2022 03/12/2021, 03/12/2021, 12/24/2019, Additional history exists CKD HGB USE SMARTSET 19840 03/20/202203/20, 03/20/2021, 03/12/2021, Additional history exists *DEPRESSION [...] Documents on File Type Date Recorded Patient Title Department Manager Expl 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 Camp Other Health Care Hayden r of Slub[employer] Frame Changer Princess Allen Other Health Care Pow er of Slubber Frame Changer
--- OUTSIDE RECORDS SUMMARY | 2023-06-01 05:03 | External Medical Summary ---
Author Name Unknown Address Unknown Organization K0G:[facility]ATORY [place] [facility] - [address] [place] [address] Laboratory Report Ordering Provider Test Date Status JILLIAN DELACRUZ 03/20/2021 15:37:59 Final Observation Date Value Abnormality Reference (Units ) Status SYNC LEUKOCYTES IN BLOOD BY AUTOMATED COUNT 03/20/2021 15:37:59 8.96 4.00-10.80 (K/uL) Final Segs 03/20/2021 15:37:59 68.6 40.0-75.0 (%) Final Lymphs % 03/20/2021 15:37:59 17.9 Below low normal 18.0-42.0 (%) Final Monos 03/20/2021 15:37:59 6.9 1.0-11.0 (%) Final Eosinophils 03/20/2021 15:37:59 6.0 0.0-6.0 (%) Final Basos 03/20/2021 15:37:59 0.6 0.0-2.0 (%) Final Absolute Segs 03/20/2021 15:37:59 6.15 1.80-7.70 (K/uL) Final Lymphs, absolute 03/20/2021 15:37:59 1.60 1.00-4.80 (K/ul) Final Monos, Abs 03/20/2021 15:37:59 0.62 0.00-1.10 (K/uL) Final Eos, Abs 03/20/2021 15:37:59 0.54 0.00-0.70 (K/uL) Final Basos, Abs 03/20/2021 15:37:59 0.05 0.00-0.20 (K/uL) Final Performing Location [facility] [place] [facility] 0 - [address] [place] [address]
--- OUTSIDE RECORDS SUMMARY | 2023-06-01 05:03 | External Medical Summary ---
Author Name Unknown Address Unknown Organization K01:[facility]ORATORY [facility] [place] - [address] [place] [address] Laboratory Report Ordering Provider Test Date Status JILLIAN DELACRUZ 03/20/2021 15:37:59 Final Observation Date Value Abnormality Reference (Units ) Status BUN 03/20/2021 15:37:59 26 Above high normal 6-20 (mg/dL) Final Creatinine 03/20/2021 15:37:59 1.6 Above high normal 0.5-1.0 (mg/dL) Final Glomerular filtration rate/1.73 sq M.predicted [Volume Rate/Area] in Serum, Plasma or Blood by Creatinine-based formula (CKD-EPI) 03/20/2021 15:37:59 33.8 Below low normal >=60.0 (mL/min) Final Performing Location [facility] [place] - [address] [place] [address]
--- OUTSIDE RECORDS SUMMARY | 2023-06-01 05:03 | External Medical Summary ---
Author Name Unknown Address Unknown Organization K0G[facility] [address] [place] [address] Laboratory Report Ordering Provider Test Date Status JILLIAN DELACRUZ 03/20/2021 15:37:59 Final Observation Date Value Abnormality Reference (Units ) Status WBC, Total 03/20/2021 15:37:59 8.96 4.00-10.8 0 (K/uL) Final RBC 03/20/2021 15:37:59 4.36 3.85-5.15 (M/uL) Final Hemoglobin 03/20/2021 15:37:59 13.2 12.0-15.3 (g/dL) Final HCT 03/20/2021 15:37:59 42.2 36.0-45.2 (%) Final MCV 03/20/2021 15:37:59 96.8 81.5-97.5 (fL) Final MCH 03/20/2021 15:37:59 30.3 27.0-34.0 (pg) Final MCHC 03/20/2021 15:37:59 31.3 Below low normal 32. 0-36.0 (g/dL) Final RDW 03/20/2021 15:37:59 16.1 Above high normal 11 .5-15.5 (%) Final Platelets 03/20/2021 15:37:59 261 140-400 (K /uL) Final MPV 03/20/2021 15:37:59 9.4 6.6-11.1 ( fL) Final Performing Location [facility]ORY [facility] 0 - [address] [place] [address]
--- OUTSIDE RECORDS SUMMARY | 2023-06-01 05:03 | External Medical Summary | Summary of Care ---
Author Name Unknown Organization [facility] Address [place] [address] Care Team Providers Care Piercer Operator Name Role Phone Kevin Whiteside DO Primary Care Provider Reason for Visit * Reason Onset Date Comments [facility]: Acute 03/24/2021 Encounter Details Date Type Department Care Team Description 03/24/2021 Telephone [facility], [facility] 132 [facility] [place] [address] [facility], [facility] [address] [facility] [place] [address] [phone] [facility]: Acute Allergies Active Allergy [...] Cap 3 12/18/2019 Active DIURETIC TITRATION PLANIndications: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 1 Each 0 04/08/2020 Active Blood Glucose Monitoring Suppl (Xiaoying ULTRA 2) w/Device KIT Use to test BG values 1 Kit 0 05/20/2020 Active Glucose Blood (FanzyTOUCH ULTRA BLUE) STRP Check sugars 3-4 times [...] 7.0%-8.0% ([facility]) Inject 3 mg under the skin once a week. 2 mL 5 03/19/2021 Active Nerve Pain Relief Sublingual Tablet SublingualIndication s:pt taking Nervive, nerve relief tablets at bedtime Place under the tongue. Indications: pt taking Nervive, nerve relief tablets at bedtime 0 Active Amoxicillin-Pot Clavulanate 875-125 MG Oral TabletIndications:Ac [place] cystitis without hematuria Take 1 Tab by mouth every 12 hours for 10 days. 20 Tab 0 03/20/2021 03/30/2021 Active NovoLOG FlexPen 100 UNIT/ML Subcutaneous Solution Pen-injector (insulin aspart)Indications:T ype 2 diabetes mellitus with hemoglobin A1c goal of 7.0%-8.0% ([facility]) Inject 40 units with meals [...] 10/14/2014 Overview: ICD-10 update of inactive term [place] filter in place 08/19/2014 History of pulmonary [...] Mariscal RN - 03/24/2021 10:14 AM EDT [facility] development intern Acute Call Date: 03/24/2021 Time: 10:15 AM Name: Stephanie Camp : 1955 Caller: patient Relationship to pt: No chief complaint on file. HPI: Stephanie Camp is a 65 year old female that is calling [facility] Intake to report generalized weakness [...] Acute Appointment scheduled for same day: Yes Wreath Maker Call back instructions provided to patient. documented in this encounter Plan of Treatment Upcoming Encounters Date Type Specialty Care Team Description 03/25/2021 Office Visit Pain Management Raj Ahn DO [address] [place] [address] [phone] 03/27/2021 Home Visit [facility] Vera Capellan RN [address] [place] [address] [phone] 04/14/2021 Home Visit Family Medicine Magaly Morales, Community [facility] P D Driver [address] [place] [address] 04/17/2021 Animal Nursery Worker [facility] Rema Real LSW [address] [place] [address] [phone] 05/14/2021 Office Visit Pharmacy [facility] [place] [address] [place] [address] 07/20/2021 Office Visit Family Medicine Kevin Whiteside DO [address] [place] [address] [phone] 08/18/2021 Office Visit Pulmonary Celsa Tafoya CRNP [address] [place] [address] [phone] 10/05/2021 Office Visit Cardiology Rey Woodall MD [address] [place] [address] [phone] Health Maintenance Due Date Last Done Comments Pneumococcal Vaccine: 65+ Years (2 of 2) 2020 08/22/2009, 06/15/2006 DIABETES-EYE EXAM 04/07/2021 04/07/2020, , 02/24/2010 (Done elsewhere), Additional history exists DIABETES-HGBA1C EVERY 6 MONTHS 05/17/2021 11/17/2020, 01/23/2020, 11/07/2019, Additional history exists CKD GFR USE SMARTSET 72117 09/19/202103/20, 03/12/2021, 12/25/2020, Additional history exists BREAST CANCER SCREENING DISCUSSION YEARLY AGES 40-75 10/01/2021 10/01/2020, 07/10/2019, 06/23/2018, Additional history exists DIABETES-FOOT EXAM 01/14/2022 01/14/2021, 0 11/07/2019, 01/01/2019, Additional history exists CKD PHOS USE SMARTSET 12633 03/12/202202/24, 11/17/2020, 12/24/2019, Additional history exists DIABETES-URINE MICROALBUMIN EVERY 12 MONTHS 03/12/2022 03/12/2021, 03/12/2021, 12/24/2019, Additional history exists CKD HGB USE SMARTSET 58577 03/20/202203/20, 03/20/2021, 03/12/2021, Additional history exists *DEPRESSION [...] Documents on File Type Date Recorded Patient Construction Project Mgr Expl 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
--- OUTSIDE RECORDS SUMMARY | 2023-06-01 05:03 | External Medical Summary ---
Author Name Unknown Address Unknown Organization K01:LABORATORY [facility] [place] - [address] [place] [address] Laboratory Report Ordering Provider Test Date Status JILLIAN DELACRUZ 03/20/2021 17:04:15 Final Observation Date Value Abnormality Reference (Units ) Status Bacteria identified in Unspecified specimen by Culture 03/20/2021 17:04:15 [id number]^KLEBSIELL A PNEUMONIAE Abnormal Final Performing Location LABORATORY [facility] - [address] [place] [address] Ordering Provider Test Date Status JILLIAN DELACRUZ 03/20/2021 17:04:15 Final Observation Date Value Abnormality Reference (Units ) Status Ampicillin + Sulbactam 03/20/2021 17:04:15 4 Susceptible Final Cefazolin 03/20/2021 17:04:15 <=4 Susceptible Final Cefepime susceptibility 03/20/2021 17:04:15 <=1 Susceptible Final Ceftriaxone suceptibility 03/20/2021 17:04:15 <=1 Susceptible Final Ciprofloxacin 03/20/2021 17:04:15 <=0.25 Susceptible Final Performing Location [facility]ORY [facility] [place] - [address] [place] [address]
--- OUTSIDE RECORDS SUMMARY | 2023-06-01 05:03 | External Medical Summary | Summary of Care ---
Author Name Unknown Organization [facility] Address [facility] [place] [address] Care Team Providers Care [employer] Name Role Phone Kevin Whiteside DO Primary Care Provider Reason for Visit * Reason Comments Generalized Body Aches pt c/o she has [place] dy aches, dizzy and states her balance in off for the past 2 weeks. pt states she was in to see Dr. Whiteside but that the symptoms are worsening. pt states the symptoms come and go Dizziness Encounter Details Date Type Department Care Team Description 03/20/2021 Office [address] [facility] [address] [facility] [place] [address] Krissy Baker, [address] [facility] [place] [address] Dizziness*; Acute cystitis without hematuria; Shortness of breath; Type 2 diabetes mellitus with hemoglobin A1c goal of 7.0%-8.0% ([facility]) Allergies Active Allergy Reactions Severity Noted Date [...] 0 0 Active Blood Glucose Monitoring Suppl (Focal TherapeuticsTOUCH ULTRA 2) w/Device KIT Use to test BG values 1 Kit 0 0 Active Glucose Blood (ONETOUCH ULTRA BLUE) STRP Check sugars 3-4 times daily, E11.9 400 Strip 3 0 Active clobetasol propionate (TEMOVATE) 0.05 % creamIndications:L [...] Active Levothyroxine Sodium 200 MCG Oral Tablet (LEVOXYL)Indicatio ns:Postsurgical hypothyroidism TAKE ONE TABLET BY MOUTH IN THE MORNING AT LEAST 30 MINUTES PRIOR TO BREAKFAST OR OTHER MEDS 90 Tab 1 0 Active DULoxetine HCl 30 MG Oral Capsule Delayed Release Particles (CYMBALTA) TAKE ONE CAPSULE BY MOUTH DAILY. take with 60mg capsule for total of 90mg 90 Cap 1 1 Active DULoxetine HCl 60 MG Oral Capsule Delayed Release Particles (CYMBALTA)Indicati ons:Fibromyalgia,M oderate episode of recurrent major depressive disorder (HCC),Primary osteoarthritis of both knees Take 1 Cap by mouth daily. Along with 30 mg capsule to total 90 mg daily. 90 Cap 3 1 Active rOPINIRole HCl 2 MG Oral Tablet (Requip)Indication s:Restless legs syndrome Take 1 Tab by mouth [...] skin daily. 45 mL 3 1 Active Furosemide 40 MG Oral Tablet (Lasix)Indications :Chronic diastolic congestive heart failure (HCC) Take 0.5 Tabs by mouth 2 times a day. 180 Tab 3 1 Active Meclizine HCl 12.5 MG Oral Tablet (Antivert)Indicati ons:Vertigo Take 1 Tab by mouth 3 times a day as needed for Dizziness. 30 Tab 1 1 Active Ondansetron HCl 4 MG Oral Tablet (Zofran)Indication s:Vertigo Take 1 Tab by mouth every 6 hours as needed for Nausea. 30 Tab 0 1 Active Levothyroxine Sodium 50 MCG Oral Tablet (Levoxyl)Indicatio ns:Hyperparathyroi dism, secondary renal (HCC) Take 1 Tab by mouth daily. (at least 30 min prior to breakfast or other meds) 30 Tab 11 1 Active traZODone HCl 50 MG Oral Tablet (Desyrel) TAKE ONE TABLET BY MOUTH AT BEDTIME 90 Tab 1 1 Active Colchicine 0.6 MG Oral TabletIndications: Leukocytoclastic vasculitis (HCC) Take 1/2 tab daily 45 Tab 1 1 Active traMADol HCl 50 MG Oral Tablet (Ultram)Indication s:Chronic pain syndrome Take 1 Tab by mouth every 8 hours as needed for Pain, Severe. 90 Tab 0 1 Active Dicyclomine HCl 20 MG Oral Tablet (Bentyl) Take 1 Tab by mouth 4 times a day as needed for Pain, Mild. For abdominal pain 120 Tab 11 1 Active Nortriptyline HCl 50 MG Oral Capsule (Pamelor)Indicatio ns:Fibromyalgia Take 1 Cap by mouth at bedtime. 90 Cap 1 1 Active Gabapentin 300 MG Oral Capsule (Neurontin)Indicat ions:Type 2 diabetes mellitus with hemoglobin A1c goal of 7.0%-8.0% (HCC) TAKE ONE CAPSULE BY MOUTH THREE TIMES DAILY 270 Cap 3 1 Active clonazePAM 0.5 MG Oral Tablet (KlonoPIN)Indicati ons:Anxiety state Take 1 Tab by mouth 2 times a day. 60 Tab 0 1 Active Cyclobenzaprine HCl 10 MG Oral Tablet (Flexeril)Indicati ons:Spinal stenosis of lumbar region without neurogenic claudication,Lumba r radiculopathy TAKE ONE TABLET BY MOUTH AT BEDTIME NEEDED FOR SPASM 30 Tab 0 1 Active Trulicity 3 MG/0.5ML Subcutaneous Solution Pen-injector (Dulaglutide)Indic ations:Type 2 diabetes mellitus with hemoglobin A1c goal of 7.0%-8.0% (HCC) Inject 3 mg under the skin once a week. 2 mL 5 1 Active Nerve Pain Relief Sublingual Tablet SublingualIndicati ons:pt taking Nervive, nerve relief tablets at bedtime Place under the tongue. Indications: pt taking Nervive, nerve relief tablets at bedtime 0 Active Amoxicillin-Pot Clavulanate 875-125 MG Oral TabletIndications: Acute cystitis without hematuria Take 1 Tab by mouth every 12 hours for 10 days. 20 Tab 0 1 03/30/20 21 Active NovoLOG FlexPen 100 UNIT/ML Subcutaneous Solution Pen-injector (insulin aspart)Indications :Type 2 diabetes mellitus with hemoglobin A1c goal of 7.0%-8.0% (HCC) Inject 40 units with meals + sliding scale 1 units for every 25 units BG > 150. 121 mL 3 1 Active Vitamin D 25 MCG (1000 UT) Oral Tablet Take 1 Tab by mouth daily. 1 Tab 0 0 03/20/20 21 Discontinued Lidocaine 5 % External Patch (Lidoderm) Place 1 Patch topically on the skin daily. 0 03/20/20 21 Discontinued NovoLOG FlexPen 100 UNIT/ML Subcutaneous Solution Pen-injector (insulin aspart)Indications :Type 2 diabetes mellitus with hemoglobin A1c goal of 7.0%-8.0% ([facility]) Inject up to 45 units with meals plus sliding scale as directed by diabetes clinic 121 mL 3 1 03/20/20 21 Discontinued(Re fill) documented as of this encounter [...] 10/14/2014 Overview: ICD-10 update of inactive term Platte filter in place 08/19/2014 History of pulmonary [...] Sign Reading Time Taken Comments Blood Pressure 102/52 03/20/2021 2:03 PM EDT Pulse 104 03/20/2021 2:03 PM EDT Temperature 36.9 C (98.4 F) 03/20/2021 2:03 PM ED T Respiratory Rate - - Oxygen Saturation - - Inhaled Oxygen Concentration - - Weight - - Height - - Body Mass Index - - documented in this encounter Progress Notes * Krissy Baker, - 03/20/2021 2:14 PM EDT Subjective: Stephanie Camp is a 65 year old female. Chief Complaint Patient presents with Generalized Body Aches pt c/o she has body aches, dizzy and states her balance in off for the past 2 weeks. pt states she was in to see Dr. Whiteside but that the symptoms are worsening. pt states the symptoms come and go Dizziness HPI: Pt c/o dizziness, unsteadiness for the past few weeks. Reports walking into poe. tx for vertigo in the past, has rx for meclizine but it makes her tired. Yesterday her friend said she was slurring her words. Sometimes she tries to say something and it doesn't come out correctly. Appetite is poor but she is eating and drinking normally. BG is elevated, 364 this AM. She has a headache sometimes but it doesn't last, gets nauseous at times. She gets achey at times, no cough, fever/chills. Has some burning w/urination. Has increased SOB w/exertion. 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 ELISSA (obstructive sleep apnea) G47.33 Venous insufficiency I87.2 HTN, goal below 130/80 I10 History of pulmonary embolus (PE) Z86.711 Statin intolerance Z78.[address] Z95.828 Type 2 diabetes mellitus with hemoglobin A1c goal of 7.0%-8.0% ([facility]) E11.9 Fibromyalgia M79.7 Abnormality of gait R26.9 Restless legs syndrome G25.81 Gastroesophageal reflux disease with esophagitis K21.00 Morbid obesity with BMI of 50.0-59.9, adult ([facility]) E66.01, Z68.43 Controlled substance agreement signed Z79.899 Chronic diastolic congestive heart failure ([facility]) I50.32 Mild episode of recurrent major depressive disorder ([facility]) F33.0 Lumbar radiculopathy M54.16 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 Indications: pt taking Nervive, nerve relief tablets at bedtime Trulicity 3 MG/0.5ML Subcutaneous Solution Pen-injector (Dulaglutide) [...] BY MOUTH AT BEDTIME 90 Tab 1 NovoLOG FlexPen 100 UNIT/ML Subcutaneous Solution Pen-injector (insulin aspart) Inject up to 45units with meals plus sliding scale as directed by diabetes clinic 121 mL 3 Levothyroxine Sodium 50 MCG Oral Tablet [...] mg by mouth daily. 90 Tab 0 clobetasol propionate (TEMOVATE) 0.05 % cream Apply to rash on the hands and dorsal feet twice daily x 1 week, then as needed for flares. 30 g 1 omeprazole (PRILOSEC) 20 MG CPDR Take 1 Cap by mouth daily. 90 Cap 3 oxygen GAS 2 LPM bled through CPAP 11 cwp during all periods of sleep and 2 LPM via NC with exertion. docusate sodium (STOOL SOFTENER) 100 MG Capsule Take 100 mg by mouth 2 times a day as needed for Constipation. BD Pen Needle Short U/F 31G X 8 MM (Insulin Pen Needle) Use 5 times daily with insulin 200 Each 11 Glucose Blood (ONETOUCH ULTRA BLUE) STRP Check sugars 3-4 times daily, E11.9 400 Strip 3 Blood Glucose Monitoring Suppl (ONETOUCH ULTRA 2) w/Device KIT Use to test BG values 1 Kit 0 DIURETIC TITRATION PLAN If no improvement on day 3, contact heart failure managing provider. 1 Each0 ACCU-CHEK SOFTCLIX LANCETS MISC Test blood sugar three or four times daily as directed 400 Each 3 ONETOUCH DELICA LANCETS 33G MISC Check blood sugars 3-4 times daily 180 Each 5 Past Medical History: Diagnosis Date ELSIE (acute kidney injury) (HCC) 06/12/2018 Allergic rhinitis due to other allergen Backache Diverticulosis of colon 01/28/06 DM type 2, not at goal ([facility]) ELLIE (generalized anxiety disorder) 09/13/2009 Goiter [address] filter in place 08/19/2014 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HCC) 08/22/2009 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HCC) 06/12/2018 History of pulmonary embolus (PE) 07/16/2014 HTN, goal below 140/90 Impetigo 09/27/2018 Obesity, BMI not known Perforation of intestine ([facility]) 1996 COLON -- 1996 Pneumonia in aspergillosis(484.6) 09/14/2009 Spinal stenosis of lumbar region without neurogenic claudication 07/15/2020 Spontaneous pneumothorax 09/14/2009 Statin intolerance 07/16/2014 Type 2 diabetes mellitus with hemoglobin A1c goal of 7.0%-8.0% ([facility]) 10/14/2014 ICD-10 update of inactive term Vaginal karmen 07/13/2018 Past Surgical History: Procedure Laterality Date ARTHROPLASTY KNEE TOTAL Right 07/24/14 R COLONOSCOPY, DIAGNOSTIC (RECTUM) 02/18/2016 normal, repeat 10 yrs/[facility] COLONOSCOPY, GI REFERRAL OP 01/28/06 diverticulosis--repeat 10 years INCISION OF [place], PLANNED 06/03/2011 TRACHEOSTOMY PLANNED performed by DANNY HOLDER at [facility] INJECT DX/THER SUBSTANCE INTERLAMINAR LUMBAR/SACRAL W IMAGE GUIDE 05/26/2020 INJECTION SPINE LUMBAR OR SACRAL performed by Raj Ahn DO at OR [facility] KNEE ARTHROSCOPY/DEBRIDEMENT 07/[address] PERMANENT GASTROSTOMY TUBE 09/06/09 GASTROSTOMY WITH CONSTUCTION GASTRIC TUBE performed by AMADOU NUNEZ at OR [facility] REMOVAL OF THYROID GLAND 06/15/2011 THYROIDECTOMY INCLUDING SUBSTERNAL THYROID CERVICAL APPROACH performed by DANNY HOLDER at [facility] REMOVE GALLBLADDER 09/06/09 CHOLECYSTECTOMY performed by AMADOU NUNEZ at [facility] REPAIR RECURRENT INCISIONAL HERNIA 1998 REVISION OF COLOSTOMY, SIMPLE 1997 SACROILIAC JOINT INJECT W/GUIDANCE 07/28/2020 INJECTION SACROILIAC JOINT performed by Raj Ahn DO at OR [facility] SUTURE, LARGE INTESTINE W/COLOSTOMY 1996 perforation R colon with colostomy VENA CAVA FILTER/LIGATION/CLIP 08/19/09 Frank filter placement through the right femoral 08/19/[address] Lerma at [facility] Review of patient's allergies indicates: Allergen Reactions Jardiance [Empagliflozin] Other (Please comment) 3 yeast infections in 6 weeks after starting Codeine hallucination Hay Fever [Pollen] Heparin Heparin Induced Thrombocytopenia Hydrocodone Neuro complications (Please comment) Morphine And Related Hallucinations Tetanus Toxoid Other (Please comment) Passed out Objective: BP 102/52 (BP Site: Left Arm, BP Position: Sitting, BP Cuff Size: Large) | Pulse 104 | Temp 36.9 C (98.4 F) (Tympanic) | LMP 03/11/2003 Review of Systems: As per HPI, all other ROS neg. Physical Exam: General: alert, healthy and no distress Head: Normocephalic, No masses, lesions, tenderness or abnormalities Ears: External ears normal, Canals clear, TM's Normal Nose: no mucosal erythema, no mucosal edema, no purulent discharge Oropharynx: no exudate, no erythema, lips, buccal mucosa, and tongue normal and mucous membranes are moist Neck: no adenopathy Heart: regular rate & rhythm, no murmurs and no gallops Lungs: chest symmetric with normal AP diameter, no chest deformities noted, no chest wall tenderness, + crackles at bases b/l Abdomen: abdomen soft, non-tender, normal bowel sounds, no masses or organomegaly and + R CVA tenderness Dizziness (Primary) - URINALYSIS, POINT OF CARE (ENTER/EDIT) - BASIC METABOLIC PANEL; Future; Expected date: 03/20/2021 - BNP (NT-PROBNP); Future; Expected date: 03/20/2021 - CBC WITH WBC DIFFERENTIAL; Future; Expected date: 03/20/2021 - PROCALCITONIN; Future; Expected date: 03/20/2021 Acute cystitis without hematuria - Amoxicillin-Pot Clavulanate 875-125 MG Oral Tablet; Take 1 Tab by mouth every 12 hours for 10 days. - CULTURE, URINE, QUANTITATIVE Shortness of breath - XR CHEST 2 VIEWS Type 2 diabetes mellitus with hemoglobin A1c goal of 7.0%-8.0% ([facility]) - NovoLOG FlexPen 100 UNIT/ML Subcutaneous Solution Pen-injector (insulin aspart); Inject 40 units with meals + sliding scale 1 units for every 25 units BG > 150. Follow up: as needed. Krissy Baker DO documented in this encounter Nursing Notes * Charissa Scanlon LPN - 03/20/2021 2:03 PM EDT The patient has been properly identified by confirmation of name and date of . Chief Complaint Patient presents with Generalized Body Aches pt c/o she has body aches, dizzy and states her balance in off for the past 2 weeks. pt states she was in to see Dr. Whiteside but that the symptoms are worsening. pt states the symptoms come and go Dizziness documented in this encounter Plan of Treatment Upcoming Encounters Date Type Specialty Care Team Description 03/25/2021 Office Visit Pain Management CousinsRaj, [address] [place] [address] [phone] 03/27/2021 Home Visit [facility] Vera Capellan, RN [address] [place] [address] [phone] 04/14/2021 Home Visit Family Medicine Magaly Morales, [facility] Audiovisual Librarian [address] [place] [address] [phone] 04/17/2021 Utility Operator [facility] Rema Real LSW [address] [place] [address] [phone] 05/14/2021 Office Visit Pharmacy Danuta Ordaz [address] [place] [address] 07/20/2021 Office Visit Family Medicine Kevin Whiteside DO [address] [place] [address] [phone] 08/18/2021 Office Visit Pulmonary Celsa Tafoya CRNP [address] [place] [address] [phone] 10/05/2021 Office Visit Cardiology Rey Woodall MD [address] [place] [address] [phone] Health Maintenance Due Date Last Done Comments Pneumococcal Vaccine: 65+ Years (2 of 2) 2020 08/22/2009, 06/15/2006 DIABETES-EYE EXAM 04/07/2021 04/07/2020, , 02/24/2010 (Done elsewhere), Additional history exists DIABETES-HGBA1C EVERY 6 MONTHS 05/17/2021 11/17/2020, 01/23/2020, 11/07/2019, Additional history exists CKD GFR USE SMARTSET 99744 09/19/202103/20, 03/12/2021, 12/25/2020, Additional history exists BREAST CANCER SCREENING DISCUSSION YEARLY AGES 40-75 10/01/2021 10/01/2020, 07/10/2019, 06/23/2018, Additional history exists DIABETES-FOOT EXAM 01/14/2022 01/14/2021, 0 11/07/2019, 01/01/2019, Additional history exists CKD PHOS USE SMARTSET 51819 03/12/202202/24, 11/17/2020, 12/24/2019, Additional history exists DIABETES-URINE MICROALBUMIN EVERY 12 MONTHS 03/12/2022 03/12/2021, 03/12/2021, 12/24/2019, Additional history exists CKD HGB USE SMARTSET 24821 03/20/202203/20, 03/20/2021, 03/12/2021, Additional history exists *DEPRESSION [...] Procedure Name Priority Date/Time Associated Diagnosis Comments CULTURE, URINE, QUANTITATIVE Routine 03/20/2021 5:04 PM EDT Acute cystitis without hematuria XR CHEST 2 VIEWS STAT 03/20/2021 3:15 PM EDT Shortness of breath URINALYSIS, POINT OF CARE (ENTER/EDIT) Routine 03/20/2021 Dizziness documented in this encounter Results * CULTURE, URINE, QUANTITATIVE (03/20/2021 5:04 PM EDT) Culture Growth 10,000 to 100,000 colonies/mL Klebsiella pneumoniae(A) LAB[facility] Specimen Urine - Urine, Clean Catch Narrative Performed At <10,000 colonies/ml mixed normal jaylin [facility] Organism Antibiotic Method Susceptibility Klebsiella pneumoniae Ampicillin/Sulbactam MICROBROTH DILUTIONS 4: Susceptible Klebsiella pneumoniae Cefazolin MICROBROTH DILUTIONS <=4: Susceptible Klebsiella pneumoniae Cefepime MICROBROTH DILUTIONS <=1: Susceptible Klebsiella pneumoniae Ceftriaxone MICROBROTH DILUTIONS <=1: Susceptible Klebsiella pneumoniae Ciprofloxacin MICROBROTH DILUTIONS <=0.25: Susceptible Comment:Due to isabelle us side effects, the FDA has advised against using Ciprofloxacin to treat uncomplicated UTIs and respiratory tract infections unless there are no alternative treatment options. Klebsiella pneumoniae Gentamicin MICROBROTH DILUTIONS <=1: Susceptible Klebsiella pneumoniae Nitrofurantoin MICROBROTH DILUTIONS <=16: Susceptible Klebsiella pneumoniae Piperacillin Tazobactam MICROBROTH DILUTIONS <=4: Susceptible Klebsiella pneumoniae Trimeth/Sulfamethoxazole MICROBROTH DILUTIONS <=20: Susceptible Performing Organization Address [facility] de Phone Number [facility] [place] [address] [place] [address] * PROCALCITONIN (03/20/2021 3:37 PM EDT) Procalcitonin 0.11(H) <0.10 ng/mL [facility] Specimen Blood - Venous blood specime n (specimen) Narrative Performed At Less than 0.5 ng/mL: Low risk for progression to sepsis. Review patients condition for localized infections. 0.5 to 2.0 ng/mL: Intermediate risk for progresion to sepsis. Review underlying conditions. Recommend repeat PCT after 6 hours has elapsed. Greater than 2.0 ng/mL: high risk for progression to sepsis unless other causes are known. [facility] Performing Organization Address [facility] Co de Phone Number LABOR[facility]ORY [facility] [address] [place] [place], [place] [id number] * BNP (NT-PROBNP) (03/20/2021 3:37 PM EDT) BNP (NT-PRO-BNP) 154 <300 pg/mL [facility] Specimen Blood - Venous blood specime n (specimen) Narrative Performed At Exclude Heart Failure: <300 pg/mL Diagnose Heart Failure: Age <50 yr: >450 pg/mL 50-75 yr: >900 pg/mL >75 yr: >1800 pg/mL GFR is 30-59 mL/min: >1200 pg/mL or Age-adjusted values GFR <30 mL/min: do not use, not reliable Prognostic threshold: 1000 pg/mL [facility] Performing Organization Address [facility] de Phone Number LAB[facility] [address] [place] [address] * BASIC METABOLIC PANEL (03/20/2021 3:37 PM EDT) Pathologist [facility] BUN 26(H) 6 - 20 mg/dL [facility] Creatinine 1.6(H) 0.5 - 1.0 mg/dL [facility] Estimated Glomerular Filtration Rate 33.8(L)Comment:If patient is , multiply estimated GFR by 1.159. >=60.0 mL/min [facility] Sodium 138 135 - 146 mmol/L [facility] Potassium 4.6 3.5 - 5.1 mmol/L [facility] Chloride 98 98 - 107 mmol/L [facility] CO2 25 22 - 32 mmol/L [facility] C Anion Gap 15 7 - 15 mmol/L [facility] Glucose 230(H) 70 - 120 mg/dL [facility] Calcium 9.0 8.4 - 10.2 mg/dL [facility] Specimen Blood - Venous blood specime n (specimen) Performing Organization Address [facility] de Phone Number [facility] [address] [place] [address] * XR CHEST 2 VIEWS (03/20/2021 3:15 PM EDT) Specimen Impressions Performed At IMPRESSION 1. No acute cardiopulmonary disease. 2. Stable diffuse interstitial opacities throughout both lungs, unchanged since 2018 and likely representing chronic interstitial lung disease. [facility] RADIOLOGY Narrative Performed At EXAM XR CHEST 2 VIEWS-03/20/2021 3:15 pm HISTORY sob COMPARISON XR CHEST 2 VIEWS dated 11/17/2020; CT CHEST WO CONTRAST dated 10/23/2019; XR CHEST 2 VIEWS dated 06/05/2018; CHEST 2 VIEWS AP OR PA AND LATERAL dated 07/16/2014 TECHNIQUE PA and lateral views of the chest were obtained FINDINGS LINES/DEVICES: None LUNGS/PLEURA: Diffuse interstitial opacities throughout both lungs are unchanged since 2018 and likely represent chronic interstitial lung disease. No new opacities are identified. There is no pleural effusion or pneumothorax. CARDIOVASCULAR/MEDIASTINUM: The cardiomediastinal silhouette is within normal limits. OTHER: The upper abdomen is unremarkable. There is no acute osseous abnormality. [facility] Procedure Note Interface, Rad In - 03/20/2021 3:26 PM EDT EXAM XR CHEST 2 VIEWS-03/20/2021 3:15 pm HISTORY sob COMPARISON XR CHEST 2 VIEWS dated 11/17/2020; CT CHEST WO CONTRAST dated 10/23/2019; XRCHEST 2 VIEWS dated 06/05/2018; CHEST 2 VIEWS AP OR PA AND LATERAL dated1 TECHNIQUE PA and lateral views of the chest were obtained FINDINGS LINES/DEVICES: None LUNGS/PLEURA: Diffuse interstitial opacities throughout both lungs areunchanged since 2018 and likely represent chronic interstitial lungdisease. No new opacities are identified. There is no pleural effusionor pneumothorax. CARDIOVASCULAR/MEDIASTINUM: The cardiomediastinal silhouette is withinnormal limits. OTHER: The upper abdomen is unremarkable. There is no acute osseousabnormality. IMPRESSION IMPRESSION 1. No acute cardiopulmonary disease. 2. Stable diffuse interstitial opacities throughout both lungs, unchangedsince 2017 and likely representing chronic interstitial lung disease. [facility] * URINALYSIS, POINT OF CARE (ENTER/EDIT) (03/20/2021) Color, Urine Yellow Yellow or Light Yellow Clarity, Urine Clear Clear Glucose, Urine 100 Negative mg/dL Bilirubin, Urine Negative Negative Ketone, Urine Negative Negative mg/dL Specific [place], Urine 1.020 1.003 - 1.030 Blood, Urine Trace-lysed Negative pH, Urine 6.0 5.0 - 7.5 units Protein, Urine Negative Negative mg/dL Urobilinogen, Urine 0.2 0.2 - 1.0 mg/dL Nitrite, Urine Negative Negative Esterase, Urine Small Negative Specimen Urine documented in this encounter Visit Diagnoses Diagnosis Dizziness- Primary Dizziness and giddiness Acute cystitis without hematuria Acute cystitis Shortness of breath Type 2 diabetes mellitus with hemoglobin A1c goal of 7.0%-8.0% (HCC) documented in this encounter Advance Directives Documents on File Type Date Recorded 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 No"
--- OUTSIDE RECORDS SUMMARY | 2023-06-01 05:03 | External Medical Summary | Summary of Care ---
Author Name Unknown Organization [facility] Address [place], [place] [address] Care Team Providers Care Acid Filler Name Role Phone Kevin Whiteside DO Primary Care Provider Reason for Visit * Reason Comments Dosage Adjustment In Person (Anticoag Cl inic) Diabetes Follow-Up Encounter Details Date Type Department Care Team Description 03/19/2021 Office Visit Pharmacy, [facility] [address] [facility] [place] [address] [facility] 132 [facility] [place] [address] Encounter for long-term current use of medication*; Type 2 diabetes mellitus with hemoglobin A1c goal of 7.0%-8.0% ([facility]) Allergies Active Allergy Reactions Severity Noted Date Comments Codeine 07/08/2014 hallucination Pollen 05/18/2019 Heparin 09/04/2009 Heparin Induced Thrombocytopenia Hydrocodone Neuro complications (Please comment) 07/28/2020 Empagliflozin Other (Please comment) Medium 05/17/2018 3 yeast infections in 6 weeks after starting Morphine And Related 09/16/1997 Hallucinations Tetanus Toxoid Other (Please comment) 06/15/2011 Passed out documented as of this encounter (statuses as of 03/19/2021) Medications Medication Sig Dispensed Refills Start Date [...] 0 04/08/2020 Active Blood Glucose Monitoring Suppl (Armetheon ULTRA 2) w/Device KIT Use to test BG values 1 Kit 0 05/20/2020 Active Glucose Blood (Viking TherapeuticsTOUCH ULTRA BLUE) STRP Check sugars 3-4 times [...] mouth daily. 90 Tab 0 07/24/2020 Active Vitamin D 25 MCG (1000 UT) Oral Tablet Take 1 Tab by mouth daily. 1 Tab 0 07/24/2020 Active Levothyroxine Sodium 200 [...] at bedtime. 90 Tab 3 12/09/2020 Active Lidocaine 5 % External Patch (Lidoderm) Place 1 Patch topically on the skin daily. 0 Active Acetaminophen 500 MG Oral Tablet [...] other meds) 30 Tab 11 01/14/2021 Active NovoLOG FlexPen 100 UNIT/ML Subcutaneous Solution Pen-injector (insulin aspart)Indications: Type 2 diabetes mellitus with hemoglobin A1c goal of 7.0%-8.0% (HCC) Inject up to 45 units with meals plus sliding scale as directed by diabetes clinic 121 mL 3 02/02/2021 Active traZODone HCl 50 MG Oral Tablet [...] of 7.0%-8.0% ([facility]) TAKE ONE CAPSULE BY MOUTH THREE TIMES DAILY 270 Cap 3 02/24/2021 Active clonazePAM 0.5 MG Oral Tablet (KlonoPIN)Indicatio [...] a week. 2 mL 5 03/19/2021 Active Trulicity 1.5 MG/0.5ML Subcutaneous Solution Pen-injector (Dulaglutide)Indica tions:DM type 2 nursing care encounter ([facility]),Uncontrolled type 2 diabetes mellitus with stage 3 chronic kidney disease, with long-term current use of insulin ([facility]) inject 1.5mg (one pen) under the skin once weekly 6 mL 5 03/18/2021 1 Discontinue d(Medicatio n/Dose Changed) documented as of this encounter (statuses as of 03/19/2021) Active Problems Problem Noted Date Hypotension 12/19/2020 [...] as of this encounter (statuses as of 03/19/2021) Resolved Problems Problem Noted Date Resolved Date [...] as of this encounter (statuses as of 03/19/2021) Immunizations Name Administration Dates Next Due COVID-19 [...] this encounter Progress Notes * Jane Wood, [facility] - 03/19/2021 9:40 AM EDT Images from the original note were not included. Medication Therapy Disease Management [facility] - Diabetes Management Progress Note Stephanie Camp, identified by name and date of , is a 65 year old female being seen for diabetes management/education. Patient presents for return diabetic visit. DIABETES: Current diabetic medications: INCREASE: Novolog - 40 units with meals +SS 1:25 >150 Tresiba 60 units HS Trulicity 1.5 mg weekly- Tuesday mornings Medication Injection Site: [...] Date/Time ESTIMATED GLOMERULAR FILTRATION RATE - [facility] 34.1 (L) 03/12/2021 03:05 PM ESTIMATED GLOMERULAR FILTRATION RATE - [facility] 26.0 (L) 05/06/2020 08:46 AM ESTIMATED GLOMERULAR FILTRATION RATE - [facility] 51.0 (L) 06/08/2013 09:06 AM Lab Results Component Value Date/Time CREATININE - [facility] 1.6 (H) 03/12/2021 03:05 PM CREATININE - [facility] 1.4 (H) 12/25/2020 10:10 AM CREATININE - [facility] 2.0 (H) 11/17/2020 01:00 PM CREATININE - [facility] 2.0 (H) 05/06/2020 [...] (A) 02/26/2019 HYPERTENSION: Patient on ACEi/ARB: no, declines BP Readings from Last 3 Encounters: 03/12/21 104/58 03/02/21 100/60 02/10/21 100/58 Blood pressure at goal: yes Lab Results Component Value Date/Time POTASSIUM - [facility] 4.3 03/12/2021 03:05 PM POTASSIUM - [facility] 4.4 12/25/2020 10:10 AM POTASSIUM - [facility] 4.2 11/17/2020 01:00 PM POTASSIUM - [facility] 4.0 05/06/2020 08:46 AM POTASSIUM - [facility] 3.7 03/07/2020 11:48 AM POTASSIUM - [facility] 3.9 02/21/2020 12:30 PM POTASSIUM-OUTSIDE LAB 3.7 03/13/2020 POTASSIUM-OUTSIDE LAB 4.2 11/30/2019 POTASSIUM-OUTSIDE LAB 4.4 02/26/2019 HYPERLIPIDEMIA: Patient is taking moderate or high intensity statin: No Current regimen: none Goal statin intensity: moderate The 10-year ASCVD risk score (Freddy JOHNS Jr., et al., 2013) is: 10.7% Values used to calculate the score: Age: 65 years Sex: Female Is Non- : No Diabetic: Yes Tobacco smoker: No Systolic Blood Pressure: 104 mmHg Is BP treated: Yes HDL Cholesterol: [...] Vaccine: 65+ Years (2 of 2) 2020 Yearly B-12 01/22/2021 DIABETES-EYE EXAM 04/07/2021 ASSESSMENT & PLAN: ICD-10-CM 1. Type 2 diabetes mellitus with hemoglobin A1c goal of 7.0%-8.0% (HCC) E11.9 BG Readings Blood sugars uncontrolled. Patient's numbers are mostly in the 200s and 300s, some 400s, rarely 100s. Patient due for a1c, but not clinically necessary at this time as BGs are elevated. Medications Reviewed current regimen, patient is adherent to regimen. Will increase trulicity. Cannot increase tresiba dose unless patient will to inject twice for absorption purposes. Diet, Exercise, Lifestyle No significant lifestyle changes since last visit. Discussed with patient the importance of putting her health first. Patient is agreeable to SMBG 3 time(s) daily. Patient aware to contact clinic if any hypoglycemia before next visit. MEDICATION CHANGES: yes, see below; preferred pharmacy: [facility] Medications: Novolog - 40 units with meals +SS 1:25 >150 Tresiba 60 units HS Increase Trulicity 3 mg weekly- Tuesday mornings HEALTH MAINTENANCE INTERVENTIONS: Labs: due for B12 Immunizations: due for pneumo Foot Exam: Up to Date Eye Exam: Complete with next PCP visit on jul 20 Annual Wellness Visit: N/A FOLLOW UP: Return to clinic in 8 weeks Next Office Visit: 05/14/2021 Scheduled Provider(s): [facility] Moe Wood [facility] Clinical Pharmacist - Retail Grocer Medication Therapy Management Clinic 03/19/2021, 9:40 AM documented in this encounter Plan of Treatment Upcoming Encounters Date Type Specialty Care Team Description 03/27/2021 Home Visit [facility] Vera Capellan, RN [address] [place] [address] [phone] 04/14/2021 Home Visit Family Medicine Magaly Morales, Community [facility] Patient Registration 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 [address] [place] [address] [phone] 04/17/2021 Pipe Bender [facility] Rema Real LSW [address] [place] [address] [phone] 05/14/2021 Office Visit Pharmacy [facility] Moe Bobo [address] [place] [address] 07/20/2021 Office Visit Family Medicine Kevin Whiteside DO [address] [place] [address] [phone] 08/18/2021 Office Visit Pulmonary Celsa Tafoya CRNP [address] [place] [address] [phone] 10/05/2021 Office Visit Cardiology Rey Woodall MD [address] [place] [address] [phone] Scheduled Orders Name Type Priority Associated Diagnoses Orde r Schedule VITAMIN B12 Lab Routine Encounter for long-term current use of medication Expected: 03/26/2021 (Approximate), Expires: 03/19/2022 Health Maintenance Due Date Last Done Comments Pneumococcal Vaccine: 65+ Years (2 of 2) 2020 08/22/2009, 06/15/2006 Yearly B-12 01/22/2021 01/23/2020, 02/24, 05/16/2018 DIABETES-EYE EXAM 04/07/2021 04/07/2020, , 02/24/2010 (Done elsewhere), Additional history exists DIABETES-HGBA1C EVERY 6 MONTHS 05/17/2021 11/17/2020, 01/23/2020, 11/07/2019, Additional history exists CKD GFR USE SMARTSET 98963 09/11/202103/12, 12/25/2020, 11/17/2020, Additional history exists BREAST CANCER SCREENING DISCUSSION YEARLY AGES 40-75 10/01/2021 10/01/2020, 07/10/2019, 06/23/2018, Additional history exists DIABETES-FOOT EXAM 01/14/2022 01/14/2021, 0 11/07/2019, 01/01/2019, Additional history exists CKD HGB USE SMARTSET 62618 03/12/202203/12, 03/12/2021, 12/25/2020, Additional history exists CKD PHOS USE SMARTSET 34057 03/12/202202/24, 11/17/2020, 12/24/2019, Additional history exists DIABETES-URINE MICROALBUMIN EVERY 12 MONTHS 03/12/2022 03/12/2021, 03/12/2021, 12/24/2019, Additional history exists *DEPRESSION SCREENING,ANNUAL FOR PTS [...] encounter Visit Diagnoses Diagnosis Encounter for long-term current use of medication- Primary Type 2 diabetes mellitus with hemoglobin A1c goal of 7.0%-8.0% (HCC) documented in this encounter Advance Directives Documents on File Type Date Recorded Patient Patient Support Tech Expl 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
--- OUTSIDE RECORDS SUMMARY | 2023-06-01 05:03 | External Medical Summary ---
Author Name Unknown Address Unknown Organization K0G:[facility] [address] [place] [address] Laboratory Report Ordering Provider Test Date Status JILLIAN DELACRUZ 03/20/2021 15:37:59 Final Observation Date Value Abnormality Reference (Units ) Status Anisocytosis [Presence] in Blood by Light microscopy 03/20/2021 15:37:59 Slight Abnormal None Seen Final Variant lymphocytes [Presence] in Blood by Light microscopy 03/20/2021 15:37:59 Few Abnormal None Seen Final Performing Location [facility] - [address] [place] [address]
--- OUTSIDE RECORDS SUMMARY | 2023-06-01 05:03 | External Medical Summary ---
Author Name Unknown Address Unknown Organization K01:[facility] - [address] [place] [address] Laboratory Report Ordering Provider Test Date Status JILLIAN DELACRUZ 03/20/2021 15:37:59 Final Observation Date Value Abnormality Reference (Units ) Status BNP, Pro-hormone 03/20/2021 15:37:59 154 <30 0 (pg/mL) Final Performing Location [facility] - [address] [place] [address]
--- OUTSIDE RECORDS SUMMARY | 2023-06-01 05:03 | External Medical Summary | Summary of Care ---
Author Name Unknown Organization [place] [address] Care Team Providers Care Loan Specialist Name Role Phone WhitesideSergeyKevinronit Ocampomelinda Primary Care Provider Encounter Details Date Type Department Care Team Description 03/24/2021 Orders Only [facility], [place] [address] [facility] [place] [address] Brooke Jose RN 132 [facility] [place] [address] [phone] At risk for falls* Allergies Active Allergy [...] 90 Cap 3 12/18/2019 Active DIURETIC TITRATION PLANIndications:Sewer Cleaner 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 1 Each 0 04/08/2020 Active Blood Glucose Monitoring Suppl (Misfit WearablesUCH ULTRA 2) w/Device KIT Use to test [...] goal of 7.0%-8.0% ([facility]) Inject 3 mg under the skin once a week. 2 mL 5 03/19/2021 Active Nerve Pain Relief Sublingual Tablet SublingualIndication s:pt taking Nervive, nerve relief tablets at bedtime Place under the tongue. Indications: pt taking Nervive, nerve relief tablets at bedtime 0 Active Amoxicillin-Pot Clavulanate 875-125 MG Oral TabletIndications:Ac [place] tribe cystitis without hematuria Take 1 Tab by [...] 10/14/2014 Overview: ICD-10 update of inactive term [place] filter in place 08/19/2014 History of pulmonary [...] mRNA, LNP-s, No Pre serve, 2-Dose Series (MedAware) 12/29/2020,12/18/2020 Pneumococcal Polysaccharide PPV23 (Pneumovax) 08/22/2009,06/15/2006 Seasonal [...] Pain Management Raj Ahn, [address] [place] [address] [phone] 03/25/2021 Scheduled Telephone [facility] [place] [facility], [facility] [address] [place] [address] [phone] 03/26/2021 Scheduled Telephone [facility] [place], [facility] [address] [place] [address] [phone] 03/27/2021 Home Visit [facility] Vera Capellan RN [address] [place] [address] [phone] 04/14/2021 Home Visit Family Medicine Magaly Morales, [facility] Restrictive Preparation Operator [address] [place] [address] [phone] 04/17/2021 Associate Brand Manager [facility] Rema Real LSW [address] [place] [address] [phone] 05/14/2021 Office Visit Pharmacy Danuta Ordaz [address] [place] [address] 07/20/2021 Office Visit Family Medicine Kevin Whiteside DO [address] [place] [address] [phone] 08/18/2021 Office Visit Pulmonary Celsa Tafoya CRNP [address] [place] [address] [phone] 10/05/2021 Office Visit Cardiology Rey Woodall MD [address] [place] [address] [phone] Health Maintenance Due Date Last Done Comments Pneumococcal Vaccine: 65+ Years (2 of 2) 2020 08/22/2009, 06/15/2006 DIABETES-EYE EXAM 04/07/2021 04/07/2020, , 02/24/2010 (Done elsewhere), Additional history exists DIABETES-HGBA1C EVERY 6 MONTHS 05/17/2021 11/17/2020, 01/23/2020, 11/07/2019, Additional history exists CKD GFR USE SMARTSET 56604 09/19/202103/20, 03/12/2021, 12/25/2020, Additional history exists BREAST CANCER SCREENING DISCUSSION YEARLY AGES 40-75 10/01/2021 10/01/2020, 07/10/2019, 06/23/2018, Additional history exists DIABETES-FOOT EXAM 01/14/2022 01/14/2021, 0 11/07/2019, 01/01/2019, Additional history exists CKD PHOS USE SMARTSET 17545 03/12/202202/24, 11/17/2020, 12/24/2019, Additional history exists DIABETES-URINE MICROALBUMIN EVERY 12 MONTHS 03/12/2022 03/12/2021, 03/12/2021, 12/24/2019, Additional history exists CKD HGB USE SMARTSET 65768 03/20/202203/20, 03/20/2021, 03/12/2021, Additional history exists *DEPRESSION [...] Documents on File Type Date Recorded Patient Wet End Operator Expl 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 Other Health Care Hayden r of Network Operations Center Engineer Princess Allen Other Health Care Pow er of Network Operations Center Engineer
--- OUTSIDE RECORDS SUMMARY | 2023-06-01 05:04 | External Medical Summary | Summary of Care ---
Author Name Unknown Organization [place] [address] Care Team Providers Care Machine Made Shoe Unit Worker Name Role Phone Kevin Whiteside DO Primary Care Provider Reason for Visit * Reason Comments Chronic Kidney Disease (CKD) Encounter Details Date Type Department Care Team Description 03/12/2021 Office Visit [facility] [address] [place] [address] Erik Lenz MD [address] [facility] [place] [id number] Stage 3b chronic kidney disease (HCC)* Allergies Active Allergy Reactions Severity Noted Date Comments Codeine 07/08/2014 hallucination Pollen 05/18/2019 Heparin 09/04/2009 Heparin Induced Thrombocytopenia Hydrocodone Neuro complications (Please comment) 07/28/2020 Empagliflozin Other (Please comment) Medium 05/17/2018 3 yeast infections in 6 weeks after starting Morphine And Related 09/16/1997 Hallucinations Tetanus Toxoid Other (Please comment) 06/15/2011 Passed out documented as of this encounter (statuses as of 03/12/2021) Medications Medication Sig Dispensed Refills Start Date [...] 04/08/2020 Active Blood Glucose Monitoring Suppl (CytomX TherapeuticsUCH ULTRA 2) w/Device KIT Use to test BG values 1 Kit 0 05/20/2020 Active Glucose Blood (ONETOUCH ULTRA BLUE) STRP Check sugars 3-4 times daily, E11.9 400 Strip 3 05/22/2020 Active TRULICITY 1.5 MG/0.5ML SOPNIndications:DM type 2 nursing care encounter ([facility]),Uncontrolled type 2 diabetes mellitus with stage 3 chronic kidney disease, with long-term current use of insulin ([facility]) inject 1.5mg (one pen) under the skin once weekly 6 mL 1 05/27/2020 Active clobetasol propionate (TEMOVATE) 0.05 % creamIndications:Lich [...] ([facility]) Inject 60 Units under the skin [...] ([facility]) Inject up to 45 units with meals plus sliding scale as directed by diabetes clinic 121 mL 3 02/02/2021 Active traZODone HCl 50 MG Oral Tablet (Desyrel) TAKE ONE TABLET BY MOUTH AT BEDTIME 90 Tab 1 02/06/2021 Active Potassium Chloride Ayleen ER 10 MEQ Oral Tablet Extended Release Take one 3 days per week 30 Tab 3 02/09/2021 Active Colchicine 0.6 MG Oral TabletIndications:Jacobo kocytoclastic [...] FOR SPASM 30 Tab 0 03/02/2021 Active documented as of this encounter (statuses as of 03/12/2021) Active Problems Problem Noted Date Hypotension 12/19/2020 Spinal stenosis of lumbar region without neurogenic claudication 07/15/2020 Primary osteoarthritis of left knee 2 01/2020 Hyperparathyroidism, secondary renal 08/2020 Vasculitis 11/07/2019 Benign [...] 10/14/2014 Overview: ICD-10 update of inactive term London filter in place 08/19/2014 History of pulmonary embolus (PE) 2013 Statin intolerance 07/16/2014 HTN, goal below 130/80 02/22/2014 Venous insufficiency 02/07/2013 ELISSA (obstructive sleep apnea) 09/16/2011 Overview: CPAP 11 cwp Mild, AHI 11.3 but with significant nocturnal hypoxemia Dicks Postsurgical hypothyroidism 06/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 documented as of this encounter (statuses as of 03/12/2021) Resolved Problems Problem Noted Date Resolved Date [...] as of this encounter (statuses as of 03/12/2021) Immunizations Name Administration Dates Next Due COVID-19 mRNA, LNP-s, No Pre serve, 2-Dose Series (NICO) 12/29/2020,12/18/2020 Pneumococcal Polysaccharide PPV23 (Pneumovax) 08/22/2009,06/15/2006 Seasonal [...] Sign Reading Time Taken Comments Blood Pressure 104/58 03/12/2021 2:22 PM EDT Pulse 103 03/12/2021 2:22 PM EDT Temperature 36.1 C (97 F) 03/12/2021 2:22 PM EDT Respiratory Rate - - Oxygen Saturation 93% 03/12/2021 2:22 PM EDT Inhaled Oxygen Concentration - - Weight 151 kg (333 lb) 03/12/2021 2:22 PM EDT Height - - Body Mass Index 57.16 12/29/2020 9:29 AM EDT documented in this encounter Progress Notes * Erik Lenz MD - 03/12/2021 2:41 PM EDT HPI: This 65-year-old female with CKD stage 3 to 4 [...] grade1 diastolic dysfunction. She was hospitalized at [facility] 05/09/2019 with the weakness and CHF exacerbation. Creatinine peaked at 2.3. Last office visit was in 09/2020--Had Syncopal episode 11/2020 and admitted for that.No cardiac or neuro cause. Was in Rehab after that. Took off the BB and Wellbutrin. Also lasix dose lowered. She uses oxygen when walking. No leg swelling.Renal function fluctuates quite a bit. Review of [...] kidney injury) ([facility]) 06/12/2018 Allergic rhinitis due to other allergen Backache Diverticulosis of colon 01/28/06 DM type 2, not at goal ([facility]) ELLIE (generalized anxiety disorder) 09/13/2009 Go[address] [place] filter in place 08/19/2014 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[facility]) 08/22/2009 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[facility]) 06/12/2018 History of pulmonary embolus (PE) 07/16/2014 HTN, goal below 140/90 Impetigo 09/27/2018 Obesity, BMI not known Perforation of intestine ([facility]) 1996 COLON -- 1996 Pneumonia in aspergillosis(484.6) 09/14/2009 Spinal stenosis of lumbar region without neurogenic claudication 07/15/2020 Spontaneous pneumothorax 09/14/2009 Statin intolerance 07/16/2014 Type 2 diabetes mellitus with hemoglobin A1c goal of 7.0%-8.0% ([facility]) 10/14/2014 ICD-10 update of inactive term Vaginal karmen 07/13/2018 Past Surgical History: Procedure Laterality Date ARTHROPLASTY KNEE TOTAL Right 07/24/14 R COLONOSCOPY, DIAGNOSTIC (RECTUM) 02/18/2016 normal, repeat 10 yrs/[facility] COLONOSCOPY, GI REFERRAL OP 01/28/06 diverticulosis--repeat 10 years INCISION OF WINDPIPE, PLANNED 06/03/2011 TRACHEOSTOMY PLANNED performed [place] DANNY HOLDER [place] [facility] [place] DX/THER SUBSTANCE INTERLAMINAR LUMBAR/SACRAL W IMAGE GUIDE 05/26/2020 INJECTION SPINE LUMBAR OR SACRAL performed by Raj Ahn DO at [facility] KNEE ARTHROSCOPY/DEBRIDEMENT 07/30 L knee cartilage [...] performed by Raj Ahn DO at OR [facility], LARGE INTESTINE W/COLOSTOMY 1996 perforation R colon with colostomy VENA CAVA FILTER/LIGATION/CLIP 08/19/09 London filter placement through the right femoral 08/19/[address] Lerma at [facility] Review of patient's allergies indicates: Allergen Reactions [...] Take 1/2 tab daily 45 Tab 1 Potassium Chloride Ayleen ER 10 MEQ Oral Tablet Extended Release Take one 3 days per week 30 Tab 3 traMADol HCl 50 MG Oral Tablet [...] by mouth every 6 hours as needed. Lidocaine 5 % External Patch (Lidoderm) Place 1 Patch topically on the skin daily. rOPINIRole HCl 2 MG Oral Tablet (Requip) [...] mg by mouth daily. 90 Tab 0 Vitamin D 25 MCG (1000 UT) Oral Tablet Take 1 Tab by mouth daily. 1 Tab 0 BD Pen Needle Short U/F 31G X 8 MM (Insulin Pen Needle) Use 5 times daily with insulin 200 Each11 clobetasol propionate (TEMOVATE) 0.05 % cream Apply to rash on the hands and dorsal feet twice daily x 1 week, then as needed for flares. 30 g 1 TRULICITY 1.5 MG/0.5ML SOPN inject 1.5mg (one pen) under the skin once weekly 6 mL 1 Glucose Blood (Amal TherapeuticsTOUCH ULTRA BLUE) STRP Check sugars 3-4 times daily, E11.9 400 Strip 3 Blood Glucose Monitoring Suppl (Amal TherapeuticsTOUCH ULTRA 2) w/Device KIT Use to [...] times a day as needed for Constipation. 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 Reviewed hospital admission for syncopal episode low blood pressure. Noted medication change. Now on lower dose of Lasix. Will do labs as below today. Most likely we will be stopping the super low-dose potassium she is taking - CBC WITH WBC DIFFERENTIAL; Future; Expected date: 03/12/2021 - URINALYSIS WITH MICROSCOPIC EXAM; Future; Expected date: 03/12/2021 - PROTEIN/ CREATININE RATIO, URINE; Future; Expected date: 03/12/2021 - RENAL FUNCTION PANEL; Future; Expected date: 03/12/2021 - MAGNESIUM; Future; Expected date: 03/12/2021 - 25-HYDROXY VITAMIN D; Future; Expected date: 03/12/2021 - CBC WITH WBC DIFFERENTIAL - MAGNESIUM - 25-HYDROXY VITAMIN D Chronic diastolic congestive heart failure (HCC) Her symptoms are controlled on diuretics. Continue current dose of Lasix20 mgtwice daily. Adjusted by Cardiology Follow Up: Return in about 6 months (around 09/11/2021) for Clinic Visit. | For: Clinic Visit Erik Lenz MD documented in this encounter Nursing Notes * Linda King LPN - 03/12/2021 2:21 PM EDT Chief Complaint Patient presents with Chronic Kidney Disease (CKD) documented in this encounter Plan of Treatment Upcoming Encounters Date Type Specialty Care Team Description 03/13/2021 Escalator Installer [facility] Rema Real LSW [address] [address] [phone] 03/17/2021 Home Visit [facility] Vera Capellan RN [address] [address] [phone] 03/19/2021 Office Visit [facility] [address] [address] 04/14/2021 Home Visit Family Medicine Magaly Morales, [facility] [address] [place] [address] 07/20/2021 Office Visit Family Medicine Kevin Whiteside DO [address] [place] [address] 08/18/2021 Office Visit Pulmonary Celsa Tafoya CRNP [address] [place] [address] 10/05/2021 Office Visit Cardiology Rey Woodall MD [address] [place] [address] Pending Results Name Type Priority Associated Diagnoses Date /Time CBC WITH WBC DIFFERENTIAL Lab Routine Stage 3b chronic kidney disease (HCC) 03/12/2021 3:00 PM EDT URINALYSIS WITH MICROSCOPIC EXAM Lab Routine Stage 3b chronic kidney disease (HCC) 03/12/2021 3:05 PM EDT PROTEIN/ CREATININE RATIO, URINE Lab Routine Stage 3b chronic kidney disease (HCC) 03/12/2021 3:05 PM EDT RENAL FUNCTION PANEL Lab Routine Stage 3b chronic kidney disease (HCC) 03/12/2021 3:05 PM EDT MAGNESIUM Lab Routine Stage 3b chronic kidney disease (HCC) 03/12/2021 3:00 PM EDT 25-HYDROXY VITAMIN D Lab Routine Stage 3b chronic kidney disease (HCC) 03/12/2021 3:00 PM EDT CBC Lab Routine Stage 3b chronic kidney disease (HCC) 03/12/2021 3:00 PM EDT AUTOMATED ANALYZER WBC DIFFERENTIAL Lab Routine Stage 3b chronic kidney disease (HCC) 03/12/2021 3:00 PM EDT Scheduled Orders Name Type Priority Associated Diagnoses Orde r Schedule CBC WITH WBC DIFFERENTIAL Lab Routine Stage 3b chronic kidney disease (HCC) Expected: 03/12/2021 (Approximate), Expires: 09/08/2021 URINALYSIS WITH MICROSCOPIC EXAM Lab Routine Stage 3b chronic kidney disease (HCC) Expected: 03/12/2021 (Approximate), Expires: 09/08/2021 PROTEIN/ CREATININE RATIO, URINE Lab Routine Stage 3b chronic kidney disease (HCC) Expected: 03/12/2021 (Approximate), Expires: 09/08/2021 RENAL FUNCTION PANEL Lab Routine Stage 3b chronic kidney disease (HCC) Expected: 03/12/2021 (Approximate), Expires: 09/08/2021 MAGNESIUM Lab Routine Stage 3b chronic kidney disease (HCC) Expected: 03/12/2021 (Approximate), Expires: 09/08/2021 25-HYDROXY VITAMIN D Lab Routine Stage 3b chronic kidney disease (HCC) Expected: 03/12/2021 (Approximate), Expires: 09/08/2021 Health Maintenance Due Date Last Done Comments Pneumococcal Vaccine: 65+ Years (2 of 2) 2020 08/22/2009, 06/15/2006 DIABETES-URINE MICROALBUMIN EVERY 12 MONTHS 12/23/2020 12/24/2019, 11/30/2019, 05/24/2019, Additional history exists Yearly B-12 01/22/2021 01/23/2020, 02/24, 05/16/2018 DIABETES-EYE EXAM 04/07/2021 04/07/2020, , 02/24/2010 (Done elsewhere), Additional history exists DIABETES-HGBA1C EVERY 6 MONTHS 05/17/2021 11/17/2020, 01/23/2020, 11/07/2019, Additional history exists CKD GFR USE SMARTSET 89395 06/26/202112/25, 11/17/2020, 05/06/2020, Additional history exists BREAST CANCER SCREENING DISCUSSION YEARLY AGES 40-75 10/01/2021 10/01/2020, 07/10/2019, 06/23/2018, Additional history exists CKD PHOS USE SMARTSET 59697 11/17/2021 02/10/2020, 12/24/2019, 11/07/2019, Additional history exists CKD HGB USE SMARTSET 19288 12/25/202112/25, 12/25/2020, 11/17/2020, Additional history exists DIABETES-FOOT EXAM 01/14/2022 01/14/2021, 0 11/07/2019, 01/01/2019, Additional history exists *DEPRESSION SCREENING,ANNUAL FOR PTS [...] Stage 3b chronic kidney disease (HCC)- Primary documented in this encounter Advance Directives Documents on File Type Date Recorded Patient Food Preparation Supervisor Expl 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
--- OUTSIDE RECORDS SUMMARY | 2023-06-01 05:04 | External Medical Summary ---
Author Name Unknown Address Unknown Organization [id number][facility] [place] [address] Laboratory Report Ordering Provider Test Date Status KEVIN BRICE 03/12/2021 15:00:21 Final Observation Date Value Abnormality Reference (Units ) Status SYNC LEUKOCYTES IN BLOOD BY AUTOMATED COUNT 03/12/2021 15:00:21 9.62 4.00-10.80 (K/uL) Final Segs 03/12/2021 15:00:21 67.7 40.0-75.0 (%) Final Lymphs % 03/12/2021 15:00:21 21.2 18.0-42.0 (%) Final Monos 03/12/2021 15:00:21 5.0 1.0-11.0 (%) Final Eosinophils 03/12/2021 15:00:21 5.4 0.0-6.0 (%) Final Basos 03/12/2021 15:00:21 0.7 0.0-2.0 (%) Final Absolute Segs 03/12/2021 15:00:21 6.51 1.80-7.70 (K/uL) Final Lymphs, absolute 03/12/2021 15:00:21 2.04 1.00-4.80 (K/ul) Final Monos, Abs 03/12/2021 15:00:21 0.48 0.00-1.10 (K/uL) Final Eos, Abs 03/12/2021 15:00:21 0.52 0.00-0.70 (K/uL) Final Basos, Abs 03/12/2021 15:00:21 0.07 0.00-0.20 (K/uL) Final Performing Location [facility] [place] [address]
--- OUTSIDE RECORDS SUMMARY | 2023-06-01 05:04 | External Medical Summary ---
Author Name Unknown Address Unknown Organization K09:[facility] [place] [address] Laboratory Report Ordering Provider Test Date Status KEVIN BRICE 03/12/2021 15:05:33 Final Observation Date Value Abnormality Reference (Units ) Status BUN 03/12/2021 15:05:33 28 Above high normal 6-20 (mg/dL) Final Creatinine 03/12/2021 15:05:33 1.6 Above high normal 0.5-1.0 (mg/dL) Final Glomerular filtration rate/1.73 sq M.predicted [Volume Rate/Area] in Serum, Plasma or Blood by Creatinine-based formula (CKD-EPI) 03/12/2021 15:05:33 34.1 Below low normal >=60.0 (mL/min) Final Performing Location [facility] [place] [address]
--- OUTSIDE RECORDS SUMMARY | 2023-06-01 05:04 | External Medical Summary ---
Author Name Unknown Address Unknown Organization [id number]:[facility] [address] [place] [address] Laboratory Report Ordering Provider Test Date Status KEVIN BRICE 03/12/2021 15:05:34 Final Observation Date Value Abnormality Reference (Units ) Status Protein/Creatinine [Ratio] in Urine 03/12/2021 15:05:34 127 <150 (mg/g ) Final Protein, Urine 03/12/2021 15:05:34 10 (mg/dL) Final Creatinine [Moles/volume] in Urine 03/12/2021 15:05:34 79 (mg/dL) Final Performing Location [facility] - [address] [place] [address]
--- OUTSIDE RECORDS SUMMARY | 2023-06-01 05:04 | External Medical Summary | Summary of Care ---
Author Name Unknown Organization [place] [address] Care Team Providers Care Bolter Helper Name Role Phone Kevin Whiteside DO Primary Care Provider Reason for Visit * Reason Comments eRx-Medication Refill Encounter Details Date Type Department Care Team Description 03/17/2021 Refill Family Practice [facility] [address] [place] [address] Kevin Whiteside DO [address] [place] [address] DM type 2 nursing care encounter ([facility]); Uncontrolled type 2 diabetes mellitus with stage 3 chronic kidney disease, with long-term current use of insulin ([facility]) Allergies Active Allergy Reactions Severity Noted Date Comments Codeine 07/08/2014 hallucination Pollen 05/18/2019 Heparin 09/04/2009 Heparin Induced Thrombocytopenia Hydrocodone Neuro complications (Please comment) 07/28/2020 Empagliflozin Other (Please comment) Medium 05/17/2018 3 yeast infections in 6 weeks after starting Morphine And Related 09/16/1997 Hallucinations Tetanus Toxoid Other (Please comment) 06/15/2011 Passed out documented as of this encounter (statuses as of 03/18/2021) Medications Medication Sig Dispensed Refills Start Date [...] 0 04/08/2020 Active Blood Glucose Monitoring Suppl ([employer] ULTRA 2) w/Device KIT Use to test BG values 1 Kit 0 05/20/2020 Active Glucose Blood (InContext SolutionsTOUCH ULTRA BLUE) STRP Check sugars 3-4 times [...] 7.0%-8.0% ([facility]) TAKE ONE CAPSULE BY MOUTH THREE [...] SPASM 30 Tab 0 03/02/2021 Active Trulicity 1.5 MG/0.5ML Subcutaneous Solution Pen-injector (Dulaglutide)Indicati ons:DM type 2 nursing care encounter ([facility]),Uncontrolled type 2 diabetes mellitus with stage 3 chronic kidney disease, with long-term current use of insulin ([facility]) inject 1.5mg (one pen) under the skin once weekly 6 mL 5 03/18/2021 Active documented as of this encounter (statuses as of 03/18/2021) Active Problems Problem Noted Date Hypotension 12/19/2020 [...] as of this encounter (statuses as of 03/18/2021) Resolved Problems Problem Noted Date Resolved Date [...] as of this encounter (statuses as of 03/18/2021) Immunizations Name Administration Dates Next Due COVID-19 mRNA, LNP-s, No Pre serve, 2-Dose Series (Orchestrate) 12/29/2020,12/18/2020 Pneumococcal Polysaccharide PPV23 (Pneumovax) 08/22/2009,06/15/2006 Seasonal [...] encounter Miscellaneous Notes * Telephone Encounter - Betsey Lindsey [facility] - 03/18/2021 4:08 PM EDT Refused Prescriptions: Disp Refills Trulicity 1.5 MG/0.5ML Subcutaneous Soluti*6 mL 0 Sig: inject 1.5mg (1 pen) under the skin once WEEKLY Refused By: BETSEY ALARCON [facility] for Refusal: Duplicate Re quest documented in this encounter Plan of Treatment Upcoming Encounters Date Type Specialty Care Team Description 03/19/2021 Office Visit [facility] [address] 03/27/2021 Home Visit [facility] Vera Capellan RN [address] [address] [phone] 04/14/2021 Home Visit Family Medicine Magaly Morales, [facility] Taker [facility] [address] [place] [address] 04/17/2021 Learning Officer [facility] Rema Real LSW [address] [address] [phone] 07/20/2021 Office Visit Family Medicine Kevin Whiteside DO [address] [address] [phone] 08/18/2021 Office Visit Pulmonary Celsa Tafoya CRNP [address] [place] [address] [phone] 10/05/2021 Office Visit Cardiology Rey Woodall MD [address] [place] [address] [phone] Health Maintenance Due Date Last Done Comments Pneumococcal Vaccine: 65+ Years (2 of 2) 2020 08/22/2009, 06/15/2006 Yearly B-12 01/22/2021 01/23/2020, 02/24, 05/16/2018 DIABETES-EYE EXAM 04/07/2021 04/07/2020, , 02/24/2010 (Done elsewhere), Additional history exists DIABETES-HGBA1C EVERY 6 MONTHS 05/17/2021 11/17/2020, 01/23/2020, 11/07/2019, Additional history exists CKD GFR USE SMARTSET 39230 09/11/202103/12, 12/25/2020, 11/17/2020, Additional history exists BREAST CANCER SCREENING DISCUSSION YEARLY AGES 40-75 10/01/2021 10/01/2020, 07/10/2019, 06/23/2018, Additional history exists DIABETES-FOOT EXAM 01/14/2022 01/14/2021, 0 11/07/2019, 01/01/2019, Additional history exists CKD HGB USE SMARTSET 89732 03/12/202203/12, 03/12/2021, 12/25/2020, Additional history exists CKD PHOS USE SMARTSET 29843 03/12/202202/24, 11/17/2020, 12/24/2019, Additional history exists DIABETES-URINE [...] as of this encounter Visit Diagnoses Diagnosis DM type 2 nursing care encounter (HCC) Type II or unspecified type diabetes mellitus without mention of complication, not stated as uncontrolled Uncontrolled type 2 diabetes mellitus with stage 3 chronic kidney disease, with long-term current use of insulin (HCC) documented in this encounter Advance Directives Documents on File Type Date Recorded Patient Manager English Expl 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
--- OUTSIDE RECORDS SUMMARY | 2023-06-01 05:04 | External Medical Summary | Summary of Care ---
Author Name Unknown Organization [place] [address] Care Team Providers Care Diagram Clerk Name Role Phone Kevin Whiteside DO Primary Care Provider Reason for Visit * Reason Comments Chronic Kidney Disease (CKD) Encounter Details Date Type Department Care Team Description 03/12/2021 Office Visit NephGregorio patton [address] [place] [address] Erik Lenz MD 200 [facility] [place] [id number] Stage 3b chronic kidney disease (HCC)* Allergies [...] 0 04/08/2020 Active Blood Glucose Monitoring Suppl ([facility] Services[facility]CH ULTRA 2) w/Device KIT Use to test BG values 1 Kit 0 05/20/2020 Active Glucose Blood (ONETOUCH ULTRA BLUE) STRP Check sugars 3-4 times daily, E11.9 400 Strip 3 05/22/2020 Active TRULICITY 1.5 MG/0.5ML SOPNIndications:DM type 2 nursing care encounter ([facility]),Uncontrolled type 2 diabetes mellitus with stage 3 chronic kidney disease, with long-term current use of insulin ([facility]) inject 1.5mg (one pen) under the skin [...] goal of 7.0%-8.0% ([facility]) Inject 60 Units under the [...] goal of 7.0%-8.0% ([facility]) Inject up to 45 units with meals [...] 10/14/2014 Overview: ICD-10 update of inactive term Belford filter in place 08/19/2014 History of pulmonary [...] mRNA, LNP-s, No Pre serve, 2-Dose Series (SigFig) 12/29/2020,12/18/2020 Pneumococcal Polysaccharide PPV23 (Pneumovax) 08/22/2009,06/15/2006 Seasonal [...] grade1 diastolic dysfunction. She was hospitalized at [facility] 05/09/2019 with the weakness and CHF exacerbation. [...] History: Diagnosis Date ELSIE (acute kidney injury) ([facility]) 06/12/2018 Allergic rhinitis due to other allergen Backache Diverticulosis of colon 01/28/06 DM type 2, not at goal ([facility]) ELLIE (generalized anxiety disorder) 09/13/2009 Goiter Belford filter in place 08/19/2014 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[facility]) 08/22/2009 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[facility]) 06/12/2018 History of pulmonary embolus ([facility]) 07/16/2014 HTN, goal below 140/90 Impetigo 09/27/2018 Obesity, BMI not known Perforation of intestine ([facility]) 1996 COLON -- 1996 Pneumonia in aspergillosis(484.6) 09/14/2009 Spinal stenosis of lumbar region without neurogenic claudication 07/15/2020 Spontaneous pneumothorax 09/14/2009 Statin intolerance 07/16/2014 Type 2 diabetes mellitus with hemoglobin A1c goal of 7.0%-8.0% ([facility]) 10/14/2014 ICD-10 update of inactive term Vaginal karmen 07/13/2018 Past Surgical History: Procedure Laterality Date ARTHROPLASTY KNEE TOTAL Right 07/24/14 R COLONOSCOPY, DIAGNOSTIC (RECTUM) 02/18/2016 normal, repeat 10 yrs/[facility] COLONOSCOPY, GI REFERRAL OP 01/28/06 diverticulosis--repeat 10 years INCISION OF WINDPIPE, PLANNED 06/03/2011 TRACHEOSTOMY PLANNED performed by DANNY HOLDER at OR [facility] INJECT DX/THER SUBSTANCE INTERLAMINAR LUMBAR/SACRAL W IMAGE GUIDE 05/26/2020 INJECTION SPINE LUMBAR OR SACRAL performed by Raj Ahn DO at [facility] KNEE ARTHROSCOPY/DEBRIDEMENT 07/[address] PERMANENT GASTROSTOMY TUBE 09/06/09 GASTROSTOMY WITH CONSTUCTION GASTRIC TUBE performed by AMADOU NUNEZ at OR [facility] REMOVAL OF THYROID GLAND 06/15/2011 THYROIDECTOMY INCLUDING SUBSTERNAL THYROID CERVICAL APPROACH performed by DANNY HOLDER at OR [facility] REMOVE GALLBLADDER 09/06/09 CHOLECYSTECTOMY performed by AMADOU NUNEZ at OR [facility] REPAIR RECURRENT INCISIONAL HERNIA 1998 REVISION OF COLOSTOMY, SIMPLE 1997 SACROILIAC JOINT INJECT W/GUIDANCE 07/28/2020 INJECTION SACROILIAC JOINT performed by Raj Ahn DO at OR [facility] SUTURE, LARGE INTESTINE W/COLOSTOMY 1996 perforation R colon with colostomy VENA CAVA FILTER/LIGATION/CLIP 08/19/09 Belford filter placement through the right femoral 08/19/[address] Lerma at [facility] Review of patient's allergies indicates: [...] once weekly 6 mL 1 Glucose Blood (Streamcore SystemTOUCH ULTRA BLUE) STRP Check sugars 3-4 times daily, E11.9 400 Strip 3 Blood Glucose Monitoring Suppl (Streamcore SystemTOUCH ULTRA 2) w/Device KIT Use to test [...] level: Not on file Occupational History Occupation: [employer] Employer: [employer] Occupation: [employer] Employer: [employer] Social Needs Financial resource strain: Not on [...] file Gets together: Not on file Attends orthodox service: Not on file Active member of [...] file Social History Narrative 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 [employer] Vaping/E-Cigarette Use Vaping/E-Cigarette Use Never User Vaping/E-Cigarette [...] Date Type Specialty Care Team Description 03/13/2021 Marriage And Family Counselor [facility] Rema Real LSW [address] [place] [address] [phone] 03/17/2021 Home Visit [facility] Vera Capellan RN [address] [address] [address] [phone] 03/19/2021 Office Visit [facility]acy [facility] [place] [address] [address] [address] 04/14/2021 Home Visit Family Medicine Magaly Morales, Community Health Principal Trainer [address] [place] [address] 07/20/2021 Office Visit Family Medicine Kevin Whiteside DO [address] [place] [address] 08/18/2021 Office Visit Pulmonary Celsa Tafoya CRNP 132 [place] [address] 10/05/2021 Office Visit Cardiology Rey Woodall MD [address] [place] [address] Pending Results Name Type Priority Associated [...] Additional history exists CKD GFR USE SMARTSET 69197 06/26/202112/25, 11/17/2020, 05/06/2020, Additional history exists BREAST CANCER SCREENING DISCUSSION YEARLY AGES 40-75 10/01/2021 10/01/2020, 07/10/2019, 06/23/2018, Additional history exists CKD PHOS USE SMARTSET 21100 11/17/2021 02/10/2020, 12/24/2019, 11/07/2019, Additional history exists CKD HGB USE SMARTSET 52718 12/25/202112/25, 12/25/2020, 11/17/2020, Additional history exists DIABETES-FOOT [...] Documents on File Type Date Recorded Patient Egg Grader Expl 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
--- OUTSIDE RECORDS SUMMARY | 2023-06-01 05:04 | External Medical Summary ---
Author Name Unknown Address Unknown Organization K09:[facility] [place] [address] Laboratory Report Ordering Provider Test Date Status KEVIN BRICE 03/12/2021 15:00:21 Final Observation Date Value Abnormality Reference (Units ) Status WBC, Total 03/12/2021 15:00:21 9.62 4.00-10.8 0 (K/uL) Final RBC 03/12/2021 15:00:21 4.75 3.85-5.15 (M/uL) Final Hemoglobin 03/12/2021 15:00:21 14.3 12.0-15.3 (g/dL) Final HCT 03/12/2021 15:00:21 46.2 Above high normal 36 .0-45.2 (%) Final MCV 03/12/2021 15:00:21 97.3 81.5-97.5 (fL) Final MCH 03/12/2021 15:00:21 30.1 27.0-34.0 (pg) Final MCHC 03/12/2021 15:00:21 31.0 Below low normal 32. 0-36.0 (g/dL) Final RDW 03/12/2021 15:00:21 15.8 Above high normal 11 .5-15.5 (%) Final Platelets 03/12/2021 15:00:21 242 140-400 (K /uL) Final MPV 03/12/2021 15:00:21 10.0 6.6-11.1 ( fL) Final Performing Location [facility] [place] [address]
--- OUTSIDE RECORDS SUMMARY | 2023-06-01 05:04 | External Medical Summary | Summary of Care ---
Author Name Unknown Organization [place] [address] Care Team Providers Care Lasting Floorworker Name Role Phone Kevin Whiteside DO Primary Care Provider Reason for Visit * Reason Onset Date Comments Test Results 03/13/2021 Encounter Details Date Type Department Care Team Description 03/13/2021 Telephone Nephrology [address] [place] [address] Erik Lenz MD [address] [place] [address] [phone] Test Results Allergies Active Allergy Reactions Severity Noted Date Comments Codeine 07/08/2014 hallucination Pollen 05/18/2019 Heparin 09/04/2009 Heparin Induced Thrombocytopenia Hydrocodone Neuro complications (Please comment) 07/28/2020 Empagliflozin Other (Please comment) Medium 05/17/2018 3 yeast infections in 6 weeks after starting Morphine And Related 09/16/1997 Hallucinations Tetanus Toxoid Other (Please comment) 06/15/2011 Passed out documented as of this encounter (statuses as of 03/13/2021) Medications Medication Sig Dispensed Refills Start Date [...] 0 0 Active Blood Glucose Monitoring Suppl ([place] ULTRA 2) w/Device KIT Use to test BG values 1 Kit 0 0 Active Glucose Blood (ONETOUCH ULTRA BLUE) STRP Check sugars 3-4 times daily, E11.9 400 Strip 3 0 Active TRULICITY 1.5 MG/0.5ML SOPNIndications:DM type 2 nursing care encounter ([facility]),Uncontrolled type 2 diabetes mellitus with stage 3 chronic kidney disease, with long-term current use of insulin ([facility]) inject 1.5mg (one pen) under the skin once weekly 6 mL 1 0 Active clobetasol propionate (TEMOVATE) 0.05 % [...] mouth daily. 90 Tab 0 0 Active Vitamin D 25 MCG (1000 UT) Oral Tablet Take 1 Tab by mouth daily. 1 Tab 0 0 Active Levothyroxine Sodium 200 [...] at bedtime. 90 Tab 3 1 Active Lidocaine 5 % External Patch (Lidoderm) [...] other meds) 30 Tab 11 1 Active NovoLOG FlexPen 100 UNIT/ML Subcutaneous Solution Pen-injector (insulin aspart)Indications: Type 2 diabetes mellitus with hemoglobin A1c goal of 7.0%-8.0% (HCC) Inject up to 45 units with meals plus sliding scale as directed by diabetes clinic 121 mL 3 1 Active traZODone HCl 50 MG Oral [...] FOR SPASM 30 Tab 0 1 Active Potassium Chloride Ayleen ER 10 MEQ Oral Tablet Extended Release Take one 3 days per week 30 Tab 3 1 03/13/20 21 Discontinued documented as of this encounter (statuses as of 03/13/2021) Active Problems Problem Noted Date Hypotension 12/19/2020 [...] as of this encounter (statuses as of 03/13/2021) Resolved Problems Problem Noted Date Resolved Date [...] as of this encounter (statuses as of 03/13/2021) Immunizations Name Administration Dates Next Due COVID-19 [...] encounter Miscellaneous Notes * Telephone Encounter - Linda King LPN - 03/13/2021 4:22 PM EDT VM message left, and MyG sent. * Telephone Encounter - Violet Meier LPN - 03/13/2021 12:57 PM EDT LM to call.needs to know that labs from 03/12/2021 have been reviewed. She can stop the potassium supplement. The blood in urine is stable. No other changes at this time * Telephone Encounter - Violet Meier LPN - 03/13/2021 12:57 PM EDT ----- Message from Erik Lenz MD sent at 03/13/2021 12:10 PM EDT ----- Blood in urine to stable She does not need to take the super low-dose potassium she is taking Otherwise continue all medication as it is documented in this encounter Plan of Treatment Upcoming Encounters Date Type Specialty Care Team Description 03/17/2021 Home Visit [facility] Vera Capellan, RN [address] [address] [phone] 03/19/2021 Office Visit Pharmacy [facility] [place] [address] [place] [address] 04/14/2021 Home Visit Family Medicine Magaly Morales, Community Health Concrete Block Layer [address] [place] [address] [phone] 04/17/2021 Artificial Stone Setter [facility] Rema Real, DISTRICT MANAGER POSTAL SERVICE [address] [place] [address] [phone] 07/20/2021 Office Visit Family Medicine Kevin Whiteside DO [address] [place] [address] [phone] 08/18/2021 Office Visit Pulmonary Celsa Tafoya CRNP [address] [place] [address] [phone] 10/05/2021 Office Visit Cardiology Rey Woodall MD 132 [facility] [place] [address] [phone] Health Maintenance Due Date Last Done Comments Pneumococcal Vaccine: 65+ Years (2 of 2) 2020 08/22/2009, 06/15/2006 Yearly B-12 01/22/2021 01/23/2020, 02/24, 05/16/2018 DIABETES-EYE EXAM 04/07/2021 04/07/2020, , 02/24/2010 (Done elsewhere), Additional history exists DIABETES-HGBA1C EVERY 6 MONTHS 05/17/2021 11/17/2020, 01/23/2020, 11/07/2019, Additional history exists CKD GFR USE SMARTSET 57757 09/11/202103/12, 12/25/2020, 11/17/2020, Additional history exists BREAST CANCER SCREENING DISCUSSION YEARLY AGES 40-75 10/01/2021 10/01/2020, 07/10/2019, 06/23/2018, Additional history exists DIABETES-FOOT EXAM 01/14/2022 01/14/2021, 0 11/07/2019, 01/01/2019, Additional history exists CKD HGB USE SMARTSET 64560 03/12/202203/12, 03/12/2021, 12/25/2020, Additional history exists CKD PHOS USE SMARTSET 06391 03/12/202202/24, 11/17/2020, 12/24/2019, Additional history exists DIABETES-URINE [...] Documents on File Type Date Recorded Patient Silver Designer Expl 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
--- OUTSIDE RECORDS SUMMARY | 2023-06-01 05:04 | External Medical Summary | Summary of Care ---
Author Name Unknown Organization [place] [address] Care Team Providers Care Toilet Products Molder Name Role Phone Kevin Whiteside DO Primary Care Provider Reason for Visit * Reason Comments [facility]: Maintenance Encounter Details Date Type Department Care Team Description 03/13/2021 Director College [facility], [facility] [address] [facility] [place] [address] Rema Real, SPICE CLEANER [address] [facility] [place] [address] [phone] Allergies Active Allergy Reactions Severity Noted Date [...] 0 04/08/2020 Active Blood Glucose Monitoring Suppl (YuuguuUCH ULTRA 2) w/Device KIT Use to test BG values 1 Kit 0 05/20/2020 Active Glucose Blood (ONETOUCH ULTRA BLUE) STRP Check sugars 3-4 times daily, E11.9 400 Strip 3 05/22/2020 Active TRULICITY 1.5 MG/0.5ML SOPNIndications:DM type 2 nursing care encounter ([facility]),Uncontrolled type 2 diabetes mellitus with stage 3 chronic kidney disease, with long-term current use of insulin ([facility]) inject 1.5mg (one pen) under the [...] mRNA, LNP-s, No Pre serve, 2-Dose Series (earthmine) 12/29/2020,12/18/2020 Pneumococcal Polysaccharide PPV23 (Pneumovax) 08/22/2009,06/15/2006 Seasonal [...] this encounter Progress Notes * Rema Real, SPICE CLEANER - 03/13/2021 1:04 PM EDT [facility] Social Work Return Visit Is this for a hospital or rehab discharge to home? No Support System in the home: Yes GAH, Chore service helpful-1 time assist. Support System outside of the home: Yes - : Informal Support (Family and Friends)brother , visited with Aunt, Seeing Dr Garcia, psychologist. Every other week, Transportation: Drives Health Care Benefits: Has health insurance and is adequate to meet needs [place]?: No DME Equipment: CPAP, portable O2, walker, shower chair Ability to Complete: ADLs and IADLs-injection in elbow, Dr Ahn for pain managemenet, Life Planning: No-Have 5 Wishes -offered again to assist. Believe brother is POA but does not have forms, will try to obtain. MENTAL STATUS EVALUATION: Orientation: Oriented to person, place and time Appearance: Age-appropriate Eye Contact: Good Behavior: Cooperative Speech: Normal pitch Mood: depression, lack of wanting do do things, lack of motivation Mood Persistence: cats and family provide support, Is also see Dr Garcia, Psychologist. Affect: Intensity: Normal, Range: Normal, Type: Appropriate Thought Process: Goals directed Thought Content:Within normal limits Attention: Normal Sleep: Good Interest: Loss of interest or pleasure in usual activities Guilt/Self-blame: Negative Energy: decreased Concentration: Good Appetite: Good Psychomotor agitation/retardation: none [...] the flowsheet rows parameter was overridden by cad administrator build. Remove the value in the flowsheet rows parameter or contact an cad administrator. The value you specified in the flowsheet rows parameter was overridden by cad administrator build. Remove the value in the flowsheet rows parameter or contact an cad administrator. The value you specified in the flowsheet rows parameter was overridden by cad administrator build. Remove the value in the flowsheet rows parameter or contact an cad administrator.. The value you specified in the flowsheet rows parameter was overridden by cad administrator build. Remove the value in the flowsheet rows parameter or contact an cad administrator. 1. Little interest or pleasure in doing things The value you specified in the flowsheet rows parameter was overridden by cad administrator build. Remove the value in the flowsheet rows parameter or contact an cad administrator. 2. Feeling down, depressed or hopeless The value you specified in the flowsheet rows parameter was overridden by cad administrator build. Remove the value in the flowsheet rows parameter or contact an cad administrator. 3. Trouble falling or staying asleep, or sleeping too much The value you specified in the flowsheetrows parameter was overridden by cad administrator build. Remove the value in the flowsheet rows parameter or contact an cad administrator. 4. Poor appetite or overeating The value you specified in the flowsheet rows parameter was overridden by cad administrator build. Remove the value in the flowsheet rows parameter or contact an cad administrator. 5. Feeling tired of having little energy The value you specified in the flowsheet rows parameter was overridden by cad administrator build. Remove the value in the flowsheet rows parameter or contact an cad administrator. 6. Feeling bad about yourself - or that you are a failure, or have let yourself of your family downThe value you specified in the flowsheet rows parameter was overridden by cad administrator build. Remove the value in the flowsheet rows parameter or contact an cad administrator. 7. Trouble concentrating on things, such as reading the newspaper or watching television The value you specified in the flowsheet rows parameter was overridden by cad administrator build. Remove the value in the flowsheet rows parameter or contact an cad administrator. 8. Moving or speaking so slowly that other people could have noticed. Or the opposite being so fidgety or restless that you have been moving around a lot more than usual The value you specified in the flowsheet rows parameter was overridden by cad administrator build. Remove the value in the flowsheet rows parameter or contact an cad administrator. 9. Thoughts that you would be better off , or of hurting yourself The value you specified in the flowsheet rows parameter was overridden by cad administrator build. Remove the value in the flowsheet rows parameter or contact an cad administrator. Diagnosed Health Conditions: Patient Active Problem [...] with BMI of 50.0-59.9, adult ([facility]) [E66.01, Z68.43] 06/27/2017 Per Obesity protocol #1 - Per Obesity Taxonomy ICD-10 update of inactive term Gastroesophageal reflux disease with esophagitis [K21.00] 03/04/2017 Restless legs syndrome [G25.81] 03/25/2016 Fibromyalgia [M79.7] 02/02/2016 Abnormality of gait [R26.9] 02/02/2016 Type 2 diabetes mellitus with hemoglobin A1c goal of 7.0%-8.0% ([facility]) [E11.9] 10/14/2014 ICD-10 update of inactive term [...] Reconciliation: Taking all medication as directed?: Yes Have difficulty getting certain medications -need DR's orders. Though at this point she has necessary medications. She has one need for a refill and will Dr Whiteside's nurse. Barriers to Treatment: Physical health barriers Social Work Goals/Interventions: Behavioral Health needs: Yes, Reinforced Behavioral Health services already In place Drug and Alcohol needs: No needs identified at this time Complex Psychosocial needs: Patient Education and support and monitoring of mood and behaviors Plan: STEFANY met with Stephanie for supportive and follow up visit. Stephanie reported she continues to see Psychologist, Dr Garcia every other week. She appreciates talking to him. She shared some of the insights she learned in therapy. STEFANY provided support. She did receive chore service from the [employer]. She found it helpful though continues with lack of energy to clean apartment regularly. She does step bystep tasks. She does report depression continues with a lack of motivation and desire to follow through on activities. She did have opportunity to visit with family members which was helpful now thatopportunity for in person visiting is more available. She does report having her medications and being able to afford them. Her difficulty lies in getting DR orders as she cannot always get through. STEFANY encouraged her to continue to communicate with [facility] and we can assist as needed. No immediate or unmet needs this date. STEFANY will follow up in one month. STEFANY did ask Stephanie to follow up with [facility] to see if insurance may cover costs. She agreed. Follow Up Appointment: April 17 2021 documented in this encounter Plan of Treatment Upcoming Encounters Date Type Specialty Care Team Description 03/17/2021 Home Visit [facility] Vera Capellan RN [address] [place] [address] [phone] 03/19/2021 Office Visit [facility]acy [facility] [place] [address] [place] [address] 04/14/2021 Home Visit Family Medicine Magaly Morales, Community Health Teacher Ballet [address] [place] [address] [phone] 04/17/2021 Director College [facility] Rema Real LSW [address] [facility] [place] [address] [phone] 07/20/2021 Office Visit Family Medicine Kevin Whiteside DO 132 [facility] [place] [address] [phone] 08/18/2021 Office Visit Pulmonary Celsa Tafoya CRNP [address] [place] [address] [phone] 10/05/2021 Office Visit Cardiology Rey Woodall MD [address] [facility] [place] [address] [phone] Health Maintenance Due Date Last Done Comments Pneumococcal Vaccine: 65+ Years (2 of 2) 2020 08/22/2009, 06/15/2006 Yearly B-12 01/22/2021 01/23/2020, 02/24, 05/16/2018 DIABETES-EYE EXAM 04/07/2021 04/07/2020, , 02/24/2010 (Done elsewhere), Additional history exists DIABETES-HGBA1C EVERY 6 MONTHS 05/17/2021 11/17/2020, 01/23/2020, 11/07/2019, Additional history exists CKD GFR USE SMARTSET 16518 09/11/202103/12, 12/25/2020, 11/17/2020, Additional history exists BREAST CANCER SCREENING DISCUSSION YEARLY AGES 40-75 10/01/2021 10/01/2020, 07/10/2019, 06/23/2018, Additional history exists DIABETES-FOOT EXAM 01/14/2022 01/14/2021, 0 11/07/2019, 01/01/2019, Additional history exists CKD HGB USE SMARTSET 37584 03/12/202203/12, 03/12/2021, 12/25/2020, Additional history exists CKD PHOS USE SMARTSET 38432 03/12/202202/24, 11/17/2020, 12/24/2019, Additional history exists DIABETES-URINE [...] on File Type Date Recorded Patient Forestry Supervisor Expl 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
--- OUTSIDE RECORDS SUMMARY | 2023-06-01 05:04 | External Medical Summary ---
Author Name Unknown Address Unknown Organization K01:[facility] [place] [address] [place] [address] Laboratory Report Ordering Provider Test Date Status BABSMARSHALMARIJA 03/12/2021 15:00:21 Final Observation Date Value Abnormality Reference (Units ) Status 25-OH Vitamin D total 03/12/2021 15:00:21 23 >19 (ng/mL) Final Performing Location [facility] [place] [address] [place] [address]
--- OUTSIDE RECORDS SUMMARY | 2023-06-01 05:04 | External Medical Summary | Summary of Care ---
Author Name Unknown Organization [place] [address] Care Team Providers Care Patternmaker Hand Name Role Phone Migue Whiteside DO Primary Care Provider Reason for Visit * Reason Onset Date Comments Medication Refill 03/17/2021 Encounter Details Date Type Department Care Team Description 03/17/2021 Refill [facility] [address] [place] [address] Migue Whiteside DO [address] [place] [id number] DM type 2 nursing care encounter ([facility]); Uncontrolled type 2 diabetes mellitus with stage 3 chronic kidney disease, with long-term current use of insulin ([facility]) Allergies Active Allergy Reactions Severity Noted Date [...] 0 04/08/2020 Active Blood Glucose Monitoring Suppl (i.TV ULTRA 2) w/Device KIT Use to test BG values 1 Kit 0 05/20/2020 Active Glucose Blood (ONETOUCH ULTRA BLUE) STRP Check sugars 3-4 times daily, E11.9 400 Strip 3 05/22/2020 Active clobetasol propionate (TEMOVATE) 0.05 % creamIndications:Kaele rosas planus Apply to rash on the [...] (Dulaglutide)Indica tions:DM type 2 nursing care encounter ([facility]),Uncontrolled type 2 diabetes mellitus with stage 3 chronic kidney disease, with long-term current use of insulin ([facility]) inject 1.5mg (one pen) under the skin once weekly 6 mL 5 03/18/2021 Active TRULICITY 1.5 MG/0.5ML SOPNIndications:DM type 2 nursing care encounter ([facility]),Uncontrolled type 2 diabetes mellitus with stage 3 chronic kidney disease, with long-term current use of insulin ([facility]) inject 1.5mg (one pen) under the skin once weekly 6 mL 1 05/27/2020 1 Discontinue d(Refill) documented as of this [...] 10/14/2014 Overview: ICD-10 update of inactive term [place] filter in place 08/19/2014 History of pulmonary [...] inactive term Primary localized osteoarthrosis, lower leg 10/05/200811/20/2019 Dyslipidemia, goal LDL below 160 08/16/2007 09/04/2009 [...] Telephone Encounter - Migue Whiteside DO - 03/18/2021 11:42 AM EDT Signed Prescriptions: Disp Refills Trulicity 1.5 MG/0.5ML Subcutaneous Soluti*6 mL 5 Sig: inject 1.5mg (one pen) under the skin once weekly Authorizing Provider: MIGUE WHITESIDE * Telephone Encounter - Angi Balderrama LPN - 03/17/2021 12:55 PM EDT Pending Prescriptions: Disp Refills Trulicity 1.5 MG/0.5ML Subcutaneous Solut*6 mL 1 * Telephone Encounter - Angi Balderrama LPN - 03/17/2021 12:55 PM EDT Pending Prescriptions: Disp Refills Trulicity 1.5 MG/0.5ML Subcutaneous Solut*6 mL 1 Last Office/Telemedicine Visit: 01/14/2021 Next Office Visit: 07/20/2021 Scheduled Provider(s): Migue Whiteside, DO If no future appointments scheduled, and last appointment is greater than a year ago, please schedule patient for a follow-up appointment Last date the medication was ordered: Pharmacy: [id number] Is this request for a controlled [...] found in Results Review. Patient Phone Numbers mobile [phone] Labs: Lab Results Component Value Date/Time CREAT 1.6 (H) 03/12/2021 03:05 PM CREAT 2.0 (H) 05/06/2020 08:46 AM POTASSIUM 4.3 03/12/2021 03:05 PM POTASSIUM 4.0 05/06/2020 08:46 AM TSH [...] Specialty Care Team Description 03/19/2021 Office Visit Pharmacy Danuta Ordaz [facility] [address] [place] [address] 03/27/2021 Home Visit [facility] Vera Capellan RN [address] [place] [address] [phone] 04/14/2021 Home Visit Family Medicine Magaly Morales, Community Health Fire Apparatus Engineer [address] [place] [address] [phone] 04/17/[address] Interpreter [facility] Rema Real LSW [address] [place] [address] [phone] 07/20/2021 Office Visit Family Medicine Migue Whiteside DO [address] [place] [address] [phone] 08/18/2021 Office Visit Pulmonary Celsa Tafoya CRNP [address] [place] [address] [phone] 10/05/2021 Office Visit Cardiology Rey Woodall MD [address] [place] [address] [phone] Health Maintenance Due Date Last Done Comments Pneumococcal Vaccine: 65+ Years (2 of 2) 2020 08/22/2009, 06/15/2006 Yearly B-12 01/22/2021 01/23/2020, 02/24, 05/16/2018 DIABETES-EYE EXAM 04/07/2021 04/07/2020, , 02/24/2010 (Done elsewhere), Additional history exists DIABETES-HGBA1C EVERY 6 MONTHS 05/17/2021 11/17/2020, 01/23/2020, 11/07/2019, Additional history exists CKD GFR USE SMARTSET 93218 09/11/202103/12, 12/25/2020, 11/17/2020, Additional history exists BREAST CANCER SCREENING DISCUSSION YEARLY AGES 40-75 10/01/2021 10/01/2020, 07/10/2019, 06/23/2018, Additional history exists DIABETES-FOOT EXAM 01/14/2022 01/14/2021, 0 11/07/2019, 01/01/2019, Additional history exists CKD HGB USE SMARTSET 59200 03/12/202203/12, 03/12/2021, 12/25/2020, Additional history exists CKD PHOS USE SMARTSET 95414 03/12/202202/24, 11/17/2020, 12/24/2019, Additional history exists DIABETES-URINE [...] Documents on File Type Date Recorded Patient Funding Specialist Expl 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
--- OUTSIDE RECORDS SUMMARY | 2023-06-01 05:04 | External Medical Summary ---
Author Name Unknown Address Unknown Organization K09:[facility] [place] [address] Laboratory Report Ordering Provider Test Date Status KEVIN BRICE 03/12/2021 15:00:22 Final Observation Date Value Abnormality Reference (Units ) Status Magnesium 03/12/2021 15:00:22 1.7 1.5-2.6 (m g/dL) Final Performing Location [facility] [place] [address]
--- OUTSIDE RECORDS SUMMARY | 2023-06-01 05:04 | External Medical Summary ---
Author Name Unknown Address Unknown Organization K01[facility] [place] [address] [place] [address] Laboratory Report Ordering Provider Test Date Status KEVIN BRICE 03/12/2021 15:05:34 Final Observation Date Value Abnormality Reference (Units ) Status Color of Urine by Auto 03/12/2021 15:05:34 Yellow Colorless, Light Yellow, Yellow, Dark Yellow Final Clarity, Urine 03/12/2021 15:05:34 Slightly Cloudy Abnormal Clear Final Glucose [Mass/volume] in Urine by Automated test strip 03/12/2021 15:05:34 Negative Negative (mg/dL) Final Bilirubin.total [Presence] in Urine by Automated test strip 03/12/2021 15:05:34 Negative Negative Final Ketones [Mass/volume] in Urine by Automated test strip 03/12/2021 15:05:34 Negative Negative (mg/dL) Final Specific gravity, Urine 03/12/2021 15:05:34 1.018 1.003-1.030 Final Hemoglobin [Presence] in Urine by Automated test strip 03/12/2021 15:05:34 Negative Negative Final pH, Urine 03/12/2021 15:05:34 6.0 5.0-7.5 (Units) Final Protein [Mass/volume] in Urine by Automated test strip 03/12/2021 15:05:34 Trace Abnormal Negative (mg/dL) Final Urobilinogen [Mass/volume] in Urine by Automated test strip 03/12/2021 15:05:34 Normal Normal (mg/dL) Final Nitrite [Presence] in Urine by Automated test strip 03/12/2021 15:05:34 Negative Negative Final Leukocyte esterase [Presence] in Urine by Automated test strip 03/12/2021 15:05:34 Large Abnormal Negative Final RBC, Urine 03/12/2021 15:05:34 3-5 Abnormal 0-2 (/HPF) Final WBC, Urine 03/12/2021 15:05:34 50+ Abnormal 0-2 (/HPF) Final Bacteria [#/area] in Urine sediment by Microscopy high power field 03/12/2021 15:05:34 >200 Abnormal 0-25 (/HPF) Final Performing Location [facility] [place] [address] [facility] [address]
--- OUTSIDE RECORDS SUMMARY | 2023-06-01 05:05 | External Medical Summary | Summary of Care ---
Author Name Unknown Organization [place] [address] Care Team Providers Care Circulation Assistant Name Role Phone Kevin Whiteside Primary Care Provider Encounter Details Date Type Department Care Team Description 02/19/2021 Scan Encounter Unspecified Department <No scans attached> [...] as of this encounter (statuses as of 02/26/2021) Medications Medication Sig Dispensed Refills Start Date [...] SOPNIndications:DM type 2 nursing care encounter ([facility]),Uncontrolled type 2 diabetes mellitus with stage 3 chronic kidney disease, with long-term current use of insulin ([facility]) inject 1.5mg (one pen) under [...] diabetes clinic 121 mL 3 02/02/2021 Active clonazePAM 0.5 MG Oral Tablet (KlonoPIN)Indications :Anxiety state Take 1 Tab by mouth 2 times a day. 60 Tab 0 02/04/2021 Active traZODone HCl 50 MG Oral Tablet [...] abdominal pain 120 Tab 11 02/17/2021 Active Cyclobenzaprine HCl 10 MG Oral Tablet (Flexeril)Indications :Spinal stenosis of lumbar region without neurogenic claudication,Lumbar radiculopathy TAKE ONE TABLET BY MOUTH AT BEDTIME NEEDED FOR SPASM 30 Tab 0 02/17/2021 Active documented as of this encounter (statuses as of 02/26/2021) Active Problems Problem Noted Date Hypotension 12/19/2020 [...] 10/14/2014 Overview: ICD-10 update of inactive term Dat[place] filter in place 08/19/2014 History of pulmonary embolus (PE) 2013 Statin intolerance 07/16/2014 HTN, goal below 130/80 02/22/2014 Venous insufficiency 02/07/2013 ELISSA (obstructive sleep apnea) 09/16/2011 Overview: CPAP 11 cwp Mild, AHI 11.3 but with significant nocturnal hypoxemia Dicks Postsurgical hypothyroidism 06/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 documented as of this encounter (statuses as of 02/26/2021) Resolved Problems Problem Noted Date Resolved Date [...] as of this encounter (statuses as of 02/26/2021) Immunizations Name Administration Dates Next Due COVID-19 [...] Encounters Date Type Specialty Care Team Description 03/02/2021 Home Visit Family Medicine Magaly Morales, Community Health Auto Tire Recapper [address] [facility] [place] [address] 03/05/2021 Office Visit Pharmacy Danuta Ordaz [address] [place] [address] 03/12/2021 Office Visit Nephrology Erik Lenz MD [address] [facility], [place] [address] [phone] 03/13/2021 Warehouse Stocker [facility] Rema Real LSW [address] [place] [address] [phone] 03/17/2021 Home Visit [facility] Vera Capellan RN [address] [place] [address] [phone] 07/20/2021 Office Visit Family Medicine Kevin Whiteside DO [address] [place] [address] [phone] 08/18/2021 Office Visit Pulmonary Celsa Tafoya CRNP [address] [place] [address] [phone] 10/05/2021 Office Visit Cardiology Rey Woodall MD [address] [place] [address] [phone] Health Maintenance Due Date Last Done Comments Pneumococcal Vaccine: 65+ Years (2 of 2) 2020 08/22/2009, 06/15/2006 DIABETES-URINE MICROALBUMIN EVERY 12 MONTHS 12/23/2020 12/24/2019, 11/30/2019, 05/24/2019, Additional history exists Yearly B-12 01/22/2021 01/23/2020, 02/24, 05/16/2018 DIABETES-EYE EXAM 04/07/2021 04/07/2020, , 02/24/2010 (Done elsewhere), Additional history exists DIABETES-HGBA1C EVERY 6 MONTHS 05/17/2021 11/17/2020, 01/23/2020, 11/07/2019, Additional history exists CKD GFR USE SMARTSET 30237 06/26/202112/25, 11/17/2020, 05/06/2020, Additional history exists BREAST CANCER SCREENING DISCUSSION YEARLY AGES 40-75 10/01/2021 10/01/2020, 07/10/2019, 06/23/2018, Additional history exists CKD PHOS USE SMARTSET 92274 11/17/202110/28, 12/24/2019, 11/07/2019, Additional history exists CKD HGB USE SMARTSET 01287 12/25/202112/25, 12/25/2020, 11/17/2020, Additional history exists DIABETES-FOOT [...] Documents on File Type Date Recorded Patient Installation Engineer Expl 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
--- OUTSIDE RECORDS SUMMARY | 2023-06-01 05:05 | External Medical Summary | Summary of Care ---
Author Name Unknown Organization [facility] Address [place], [place] [address] Care Team Providers Care Oysterman Name Role Phone Migue Whiteside DO Primary Care Provider Reason for Visit * Reason Onset Date Comments Medication Refill 03/02/2021 Encounter Details Date Type Department Care Team Description 03/02/2021 Refill [facility] [address] [place] [address] Migue Whiteside DO [address] [place] [address] [phone] Anxiety state; Spinal stenosis of lumbar region without neurogenic claudication; Lumbar radiculopathy; Fibromyalgia Allergies Active Allergy Reactions Severity Noted Date Comments Codeine 07/08/2014 hallucination Pollen 05/18/2019 Heparin 09/04/2009 Heparin Induced Thrombocytopenia Hydrocodone Neuro complications (Please comment) 07/28/2020 Empagliflozin Other (Please comment) Medium 05/17/2018 3 yeast infections in 6 weeks after starting Morphine And Related 09/16/1997 Hallucinations Tetanus Toxoid Other (Please comment) 06/15/2011 Passed out documented as of this encounter (statuses as of 03/02/2021) Medications Medication Sig Dispensed Refills Start Date [...] 0 04/08/2020 Active Blood Glucose Monitoring Suppl ([employer] ULTRA 2) w/Device KIT Use to test BG values 1 Kit 0 05/20/2020 Active Glucose Blood (HealthSmart HoldingsTOUCH ULTRA BLUE) STRP Check sugars 3-4 times daily, E11.9 400 Strip 3 05/22/2020 Active TRULICITY 1.5 MG/0.5ML SOPNIndications:DM type 2 nursing care encounter ([facility]),Uncontrolled type 2 diabetes mellitus with stage 3 chronic kidney disease, with long-term current use of insulin ([facility]) inject 1.5mg (one pen) under the skin once weekly 6 mL 1 05/27/2020 Active clobetasol propionate (TEMOVATE) 0.05 % creamIndications:Kalee [...] 3 02/09/2021 Active Colchicine 0.6 MG Oral TabletIndications:L eukocytoclastic [...] FOR SPASM 30 Tab 0 03/02/2021 Active clonazePAM 0.5 MG Oral Tablet (KlonoPIN)Indicatio ns:Anxiety state Take 1 Tab by mouth 2 times a day. 60 Tab 0 02/04/2021 1 Discontinue d(Refill) Cyclobenzaprine HCl 10 MG Oral Tablet (Flexeril)Indicatio ns:Spinal stenosis of lumbar region without neurogenic claudication,Lumbar radiculopathy TAKE ONE TABLET BY MOUTH AT BEDTIME NEEDED FOR SPASM 30 Tab 0 02/17/2021 1 Discontinue d(Refill) documented as of this encounter (statuses as of 03/02/2021) Active Problems Problem Noted Date Hypotension 12/19/2020 [...] as of this encounter (statuses as of 03/02/2021) Resolved Problems Problem Noted Date Resolved Date [...] as of this encounter (statuses as of 03/02/2021) Immunizations Name Administration Dates Next Due COVID-19 [...] Telephone Encounter - Migue Whiteside DO - 03/02/2021 9:13 AM EDT Signed Prescriptions: Disp Refills clonazePAM 0.5 MG Oral Tablet (KlonoPIN) 60 Tab 0 Sig: Take 1 Tab by mouth 2 times a day. Authorizing Provider: MIGUE WHITESIDE Cyclobenzaprine HCl 10 MG Oral Tablet (Fle*30 Tab 0 Sig: TAKE ONE TABLET BY MOUTH AT BEDTIME NEEDED FOR SPASM Authorizing Provider: MIGUE WHITESIDE Refused Prescriptions: Disp Refills Nortriptyline HCl 50 MG Oral Capsule (Sho*90 Cap 1 Sig: Take 1 Cap by mouth at bedtime. Refused By: LANETTE LANDA Reason for Refusal: Too soon Reason for Refusal Comment: rx sent 02/24/21 for 90 caps and 1 refill * Telephone Encounter - Lanette Landa LPN - 03/02/2021 8:41 AM EDT Pending Prescriptions: Disp Refills clonazePAM 0.5 MG Oral Tablet (KlonoPIN) 60 Tab 0 Sig: Take 1 Tab by mouth 2 times a day. Cyclobenzaprine HCl 10 MG Oral Tablet (Fl*30 Tab 0 Sig: TAKE ONE TABLET BY MOUTH AT BEDTIME NEEDED FOR SPASM Refused Prescriptions: Disp Refills Nortriptyline HCl 50 MG Oral Capsule (Sho*90 Cap 1 Sig: Take 1 Cap by mouth at bedtime. Refused By: LANETTE LANDA Reason for Refusal: Too soon Reason for Refusal Comment: rx sent 02/24/21 for 90 caps and 1 refill * Telephone Encounter - Lanette Landa LPN - 03/02/2021 8:37 AM EDT Pending Prescriptions: Disp Refills clonazePAM 0.5 MG Oral Tablet (KlonoPIN) 60 Tab 0 Sig: Take 1 Tab by mouth 2 times a day. Cyclobenzaprine HCl 10 MG Oral Tablet (Fl*30 Tab 0 Sig: TAKE ONE TABLET BY MOUTH AT BEDTIME NEEDED FOR SPASM Refused Prescriptions: Disp Refills Nortriptyline HCl 50 MG Oral Capsule (Sho*90 Cap 1 Sig: Take 1 Cap by mouth at bedtime. Last Office/Telemedicine Visit: 01/14/2021 Next Office Visit: 07/20/2021 Scheduled Provider(s): Migue Whiteside DO Last date the medication was ordered: 02/04/21, 02/17/21 Patient Active Problem List Diagnosis Code Dyslipidemia E78.5 ELLIE (generalized anxiety disorder) F41.1 Postsurgical hypothyroidism E89.0 ELISSA (obstructive sleep apnea) G47.33 Venous insufficiency I87.2 HTN, goal below 130/80 I10 History of pulmonary embolus (PE) Z86.711 Statin intolerance Z78.[address] Z95.828 Type 2 diabetes mellitus with hemoglobin A1c goal of 7.0%-8.0% ([facility]) E11.9 Fibromyalgia M79.7 Abnormality of gait R26.9 Restless legs syndrome G25.81 Gastroesophageal reflux disease with esophagitis K21.00 Morbid obesity with BMI of 50.0-59.9, adult ([facility]) E66.01, Z68.43 Controlled substance agreement signed Z79.899 Chronic diastolic congestive heart failure ([facility]) I50.32 Mild episode of recurrent major depressive disorder ([facility]) F33.0 Lumbar radiculopathy M54.16 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, NYHA class 1 and CKD stage 3 ([facility]) I13.0, I50.30, N18.30 Hyperparathyroidism, secondary renal ([facility]) N25.81 Vasculitis ([facility]) I77.6 Primary osteoarthritis of left knee M17.12 Spinal stenosis of lumbar region without neurogenic claudication M48.061 Hypotension I95.9 Labs: Lab Results Component Value Date/Time CREATININE - [facility] 1.4 (H) 12/25/2020 10:10 AM CREATININE - [facility] 2.0 (H) 05/06/2020 08:46 AM CREATININE JOHNNY 50 09/04/2018 02:27 PM CREATININE, RANDOM URINE - [facility] 52 12/24/2019 07:28 AM CREATININE-OUTSIDE LAB 1.74 (A) 03/13/2020 Lab Results Component Value Date/Time POTASSIUM - [facility] 4.4 12/25/2020 10:10 AM POTASSIUM - [facility] 4.0 05/06/2020 08:46 [...] Family Medicine Magaly Morales, Community Health Director Veterinary [address] [place] [facility] [place] [address] [phone] 03/05/2021 Office Visit Pharmacy [facility] [address] [place] [address] 03/12/2021 Office Visit Nephrology Erik Lenz MD [address] [place] [address], [place] [address] [phone] 03/13/2021 Inspector Of Weights And Measures [facility] Rema Real LSW [address] [place] [address] [phone] 03/17/2021 Home Visit [facility] Vera Capellan RN [address] [place] [address] [phone] 07/20/2021 Office Visit Family Medicine Migue Whiteside DO [address] [place] [address] [phone] 08/18/2021 Office Visit Pulmonary Celsa Tafoya CRNP [address] [place] [address] [phone] 10/05/2021 Office Visit Cardiology Rey Woodall MD [address] [place] [address] [phone] Health Maintenance Due Date Last Done Comments Pneumococcal Vaccine: 65+ Years (2 of 2) 2020 08/22/2009, 06/15/2006 DIABETES-URINE MICROALBUMIN EVERY 12 MONTHS 12/23/2020 12/24/2019, 11/30/2019, 05/24/2019, Additional history exists Yearly B-12 01/22/2021 01/23/2020, 02/24, 05/16/2018 DIABETES-EYE EXAM 04/07/2021 04/07/2020, , 02/24/2010 (Done elsewhere), Additional history exists DIABETES-HGBA1C EVERY 6 MONTHS 05/17/2021 11/17/2020, 01/23/2020, 11/07/2019, Additional history exists CKD GFR USE SMARTSET 14680 06/26/202112/25, 11/17/2020, 05/06/2020, Additional history exists BREAST CANCER SCREENING DISCUSSION YEARLY AGES 40-75 10/01/2021 10/01/2020, 07/10/2019, 06/23/2018, Additional history exists CKD PHOS USE SMARTSET 41582 11/17/202110/28, 12/24/2019, 11/07/2019, Additional history exists CKD HGB USE SMARTSET 44611 12/25/202112/25, 12/25/2020, 11/17/2020, Additional history exists DIABETES-FOOT [...] radiculitis, unspecified Fibromyalgia Mylagia and myositis, unspecified documented in this encounter Advance Directives Documents on File Type Date Recorded Patient Tower Excavator Operator Expl 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
--- OUTSIDE RECORDS SUMMARY | 2023-06-01 05:05 | External Medical Summary | Summary of Care ---
Author Name Unknown Organization [place] [address] Care Team Providers Care Paving Bed Maker Name Role Phone Migue Whiteside DO Primary Care Provider Reason for Visit * Reason Onset Date Comments Medication Refill 02/21/2021 Encounter Details Date Type Department Care Team Description 02/21/2021 Refill [facility] [address] [place] [address] Migue Whiteside DO [address] [place] [address] Fibromyalgia Allergies Active Allergy Reactions Severity Noted Date Comments Codeine 07/08/2014 hallucination Pollen 05/18/2019 Heparin 09/04/2009 Heparin Induced Thrombocytopenia Hydrocodone Neuro complications (Please comment) 07/28/2020 Empagliflozin Other (Please comment) Medium 05/17/2018 3 yeast infections in 6 weeks after starting Morphine And Related 09/16/1997 Hallucinations Tetanus Toxoid Other (Please comment) 06/15/2011 Passed out documented as of this encounter (statuses as of 02/24/2021) Medications Medication Sig Dispensed Refills Start Date [...] 0 04/08/2020 Active Blood Glucose Monitoring Suppl (21GRAMSUCH ULTRA 2) w/Device KIT Use to test BG values 1 Kit 0 05/20/2020 Active Glucose Blood (ONETOUCH ULTRA BLUE) STRP Check sugars 3-4 times daily, E11.9 400 Strip 3 05/22/2020 Active TRULICITY 1.5 MG/0.5ML SOPNIndications:DM type 2 nursing care encounter ([facility]),Uncontrolled type 2 diabetes mellitus with stage 3 chronic kidney disease, with long-term current use of insulin ([facility]) inject 1.5mg (one pen) under the [...] 02/02/2021 Active clonazePAM 0.5 MG Oral Tablet (KlonoPIN)Indicatio [...] FOR SPASM 30 Tab 0 02/17/2021 Active Nortriptyline HCl 50 MG Oral Capsule (Pamelor)Indication s:Fibromyalgia Take 1 Cap by mouth at bedtime. 90 Cap 1 02/24/2021 Active Gabapentin 300 MG Oral Capsule (Neurontin)Indicati ons:Type 2 diabetes mellitus with hemoglobin A1c goal of 7.0%-8.0% ([facility]) TAKE ONE CAPSULE BY MOUTH THREE TIMES DAILY 270 Cap 3 02/24/2021 Active Nortriptyline HCl 50 MG Oral Capsule (Pamelor)Indication s:Fibromyalgia Take 1 Cap by mouth at bedtime. 90 Cap 1 02/17/2021 1 Discontinue d(Refill) documented as of this encounter (statuses as of 02/24/2021) Active Problems Problem Noted Date Hypotension 12/19/2020 [...] 10/14/2014 Overview: ICD-10 update of inactive term [place] filter in place 08/19/2014 History of pulmonary embolus (PE) 2013 Statin intolerance 07/16/2014 HTN, goal below 130/80 02/22/2014 Venous insufficiency 02/07/2013 ELISSA (obstructive sleep apnea) 09/16/2011 Overview: CPAP 11 cwp Mild, AHI 11.3 but with significant nocturnal hypoxemia Dicks Postsurgical hypothyroidism 06/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 documented as of this encounter (statuses as of 02/24/2021) Resolved Problems Problem Noted Date Resolved Date [...] as of this encounter (statuses as of 02/24/2021) Immunizations Name Administration Dates Next Due COVID-19 [...] Telephone Encounter - Migue Whiteside DO - 02/24/2021 7:36 AM EDT Signed Prescriptions: Disp Refills Nortriptyline HCl 50 MG Oral Capsule (Sho*90 Cap 1 Sig: Take 1 Cap by mouth at bedtime. Authorizing Provider: MIGUE WHITESIDE * Telephone Encounter - Angi Balderrama LPN - 02/21/2021 8:06 AM EDT Pending Prescriptions: Disp Refills Nortriptyline HCl 50 MG Oral Capsule (Alicia*90 Cap 1 Sig: Take 1 Cap by mouth at bedtime. * Telephone Encounter - Angi Balderrama LPN - 02/21/2021 8:05 AM EDT Pending Prescriptions: Disp Refills Nortriptyline HCl 50 MG Oral Capsule (Alicia*90 Cap 1 Sig: Take 1 Cap by mouth at bedtime. Last Office/Telemedicine Visit: 01/14/2021 Next Office Visit: 07/20/2021 Scheduled Provider(s): Migue Whiteside, DO If no future appointments scheduled, and last appointment is greater than a year ago, please schedule patient for a follow-up appointment Last date the medication was ordered: Pharmacy: [facility] [id number] Is this request for a controlled [...] Results Component Value Date/Time CREAT 1.4 (H) 12/25/2020 10:10 AM CREAT 2.0 (H) 05/06/2020 08:46 AM POTASSIUM 4.4 12/25/2020 10:10 AM POTASSIUM 4.0 05/06/2020 08:46 AM TSH 3.88 [...] Encounters Date Type Specialty Care Team Description 02/27/2021 Home Visit Family Medicine Magaly Morales, [facility] Picker [address] [facility] [address] [phone] 03/05/2021 Office Visit Pharmacy [facility] [place] [address] [place] [id number] 03/12/2021 Office Visit Nephrology Erik Lenz MD [address] [place] [address] [phone] 03/13/2021 Assembler Tubing [facility] Rema Real LSW [address] [place] [address] [phone] 03/17/2021 Home Visit [facility] Vera Capellan RN [address] [place] [address] [phone] 07/20/2021 Office Visit Family Medicine Migue Whiteside DO [address] [place] [address] [phone] 08/18/2021 Office Visit Pulmonary Celsa Tafoya CRNP [address] [place] [address] [phone] 10/05/2021 Office Visit Cardiology Rey Woodall MD [address] [place] [address] [phone] Health Maintenance Due Date Last Done Comments Pneumococcal Vaccine: 65+ Years (2 of 2) 2020 08/22/2009, 06/15/2006 DIABETES-URINE MICROALBUMIN EVERY 12 MONTHS 12/23/2020 12/24/2019, 11/30/2019, 05/24/2019, Additional history exists Yearly B-12 01/22/2021 01/23/2020, 02/24, 05/16/2018 DIABETES-EYE EXAM 04/07/2021 04/07/2020, , 02/24/2010 (Done elsewhere), Additional history exists DIABETES-HGBA1C EVERY 6 MONTHS 05/17/2021 11/17/2020, 01/23/2020, 11/07/2019, Additional history exists CKD GFR USE SMARTSET 36449 06/26/202112/25, 11/17/2020, 05/06/2020, Additional history exists BREAST CANCER SCREENING DISCUSSION YEARLY AGES 40-75 10/01/2021 10/01/2020, 07/10/2019, 06/23/2018, Additional history exists CKD PHOS USE SMARTSET 83583 11/17/202110/28, 12/24/2019, 11/07/2019, Additional history exists CKD HGB USE SMARTSET 60253 12/25/202112/25, 12/25/2020, 11/17/2020, Additional history exists DIABETES-FOOT [...] on File Type Date Recorded Patient Manager Of International Expl 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
--- OUTSIDE RECORDS SUMMARY | 2023-06-01 05:05 | External Medical Summary | Summary of Care ---
Author Name Unknown Organization [facility] Address [facility] [place] [address] Care Team Providers Care Janitor Helper Name Role Phone Migue Whiteside DO Primary Care Provider Reason for Visit * Reason Onset Date Comments Medication Refill 02/16/2021 Encounter Details Date Type Department Care Team Description 02/16/2021 Refill [facility] [address] [place] [...] as of this encounter (statuses as of 02/17/2021) Medications Medication Sig Dispensed Refills Start Date [...] 0 04/08/2020 Active Blood Glucose Monitoring Suppl (Forest2MarketUCH ULTRA 2) w/Device KIT Use to test BG values 1 Kit 0 05/20/2020 Active Glucose Blood (ONETOUCH ULTRA BLUE) STRP Check sugars 3-4 times daily, E11.9 400 Strip 3 05/22/2020 Active TRULICITY 1.5 MG/0.5ML SOPNIndications:DM type 2 nursing care encounter ([facility]),Uncontrolled type 2 diabetes mellitus with stage 3 chronic kidney disease, with long-term current use of insulin ([facility]) inject 1.5mg (one pen) under the [...] mg daily. 90 Cap 3 10/02/2020 Active Gabapentin 300 MG Oral Capsule (Neurontin)Indicati ons:Type 2 diabetes mellitus with hemoglobin A1c goal of 7.0%-8.0% (HCC) Take 1 Cap by mouth 3 times a day. 270 Cap 0 11/10/2020 Active rOPINIRole HCl 2 MG Oral Tablet [...] Pain, Severe. 90 Tab 0 02/09/2021 Active Nortriptyline HCl 50 MG Oral Capsule (Pamelor)Indication s:Fibromyalgia Take 1 Cap by mouth at bedtime. 90 Cap 1 02/17/2021 Active dicyclomine (BENTYL) 20 MG Tablet Take 1 Tab by mouth 4 times a day as needed for Pain, Mild. For abdominal pain 120 Tab 11 05/06/2020 1 Discontinue d(Refill) Cyclobenzaprine HCl 10 MG Oral Tablet (FLEXERIL)Indicatio ns:Spinal stenosis of lumbar region without neurogenic claudication,Lumbar radiculopathy TAKE ONE TABLET BY MOUTH AT BEDTIME NEEDED FOR SPASM 30 Tab 0 09/04/2020 1 Discontinue d(Refill) Nortriptyline HCl 50 MG Oral Capsule (PAMELOR)Indication s:Fibromyalgia TAKE ONE CAPSULE BY MOUTH AT BEDTIME 90 Cap 1 09/23/2020 1 Discontinue d(Refill) documented as of this encounter (statuses as of 02/17/2021) Active Problems Problem Noted Date Hypotension 12/19/2020 [...] as of this encounter (statuses as of 02/17/2021) Resolved Problems Problem Noted Date Resolved Date [...] as of this encounter (statuses as of 02/17/2021) Immunizations Name Administration Dates Next Due COVID-19 mRNA, LNP-s, No Pre serve, 2-Dose Series (Pfizer) 12/29/2020,12/18/2020 Pneumococcal Polysaccharide PPV23 (Pneumovax) 08/22/2009,06/15/2006 Seasonal Influenza, Quadriva lent, No Preserve, 6 Mons & Above, IM 07/23/2019,06/12/2018,07/14/2017 Seasonal Influenza, Quadriva lent, No Preserve, Adjuvanted, 65+ Yrs, IM 06/13/2020 Seasonal Influenza, Quadriva lent, No Preserve, IM 06/24/2016,07/24/2015 Seasonal Influenza, Trivalen t, with Preserve, 3yr & Above, Split 06/13/2014,07/07/2012,06/28/2011,06/15,08/01/2009,07/04/2008,08/14/2007 ,10/19/2006,08/07/2004,09/04/2002 Varicella Zoster Vaccine (Adult) 12/11/2015 [...] Telephone Encounter - Migue Whiteside DO - 02/17/2021 12:58 PM EDT Signed Prescriptions: Disp Refills Nortriptyline HCl 50 MG Oral Capsule (Sho*90 Cap 1 Sig: Take 1 Cap by mouth at bedtime. Authorizing Provider: MIGUE WHITESIDE * Telephone Encounter - Regina Gee LPN - 02/17/2021 8:38 AM EDT Pending Prescriptions: Disp Refills Nortriptyline HCl 50 MG Oral Capsule (Alicia*90 Cap 1 Sig: Take 1 Cap by mouth at bedtime. * Telephone Encounter - Regina Gee LPN - 02/17/2021 8:38 AM EDT Pending Prescriptions: Disp Refills Nortriptyline HCl 50 MG Oral Capsule (Alicia*90 Cap 1 Sig: Take 1 Cap by mouth at bedtime. Last Office/Telemedicine Visit: 01/14/2021 Next Office Visit: 07/20/2021 Scheduled Provider(s): Migue Whiteside DO Last date the medication was ordered: 09/23/2020 Patient Active Problem List Diagnosis Code Dyslipidemia E78.5 ELLIE (generalized anxiety disorder) F41.1 Postsurgical hypothyroidism E89.0 ELISSA (obstructive sleep apnea) G47.33 Venous insufficiency I87.2 HTN, goal below 130/80 I10 History of pulmonary embolus (PE) Z86.711 Statin intolerance Z78.[address] Z95.828 Type 2 diabetes mellitus with hemoglobin A1c goal of 7.0%-8.0% ([facility]) E11.9 Fibromyalgia M79.7 Abnormality of gait R26.9 Restless legs syndrome G25.81 Gastroesophageal reflux disease with esophagitis K21.00 Morbid obesity with BMI of 50.0-59.9, adult ([facility]) E66.01, Z68.43 Controlled substance agreement signed Z79.899 Chronic diastolic congestive heart failure ([facility]) I50.32 Mild episode of recurrent major depressive disorder ([facility]) F33.0 Lumbar radiculopathy M54.16 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, NYHA class 1 and CKD stage 3 ([facility]) I13.0, I50.30, N18.30 Hyperparathyroidism, secondary renal ([facility]) N25.81 Vasculitis ([facility]) I77.6 Primary osteoarthritis of left knee [...] Visit Family Medicine Magaly Morales, [facility] Talend Developer [address] [facility] [place] [address] 03/05/2021 Office Visit Pharmacy [facility] [address] [facility] [place] [address] 03/12/2021 Office Visit Nephrology Erik Lenz MD [address] [facility] [place] [place] [address] [phone] 03/13/2021 Water Softener Installer [facility] Rema Real LSW [address] [place] [address] [phone] 03/17/2021 Home Visit [facility] Vera Capellan RN [address] [place] [address] [phone] 07/20/2021 Office Visit Family Medicine Migue Whiteside DO [address] [place] [address] [phone] 08/18/2021 Office Visit Pulmonary Celsa Tafoya CRNP [address] [place] [address] [phone] 10/05/2021 Office Visit Cardiology Rey Woodall MD [address] [place] [address] [phone] Health Maintenance Due Date Last Done Comments Pneumococcal Vaccine: 65+ Years (2 of 2) 2020 08/22/2009, 06/15/2006 DIABETES-URINE MICROALBUMIN EVERY 12 MONTHS 12/23/2020 12/24/2019, 11/30/2019, 05/24/2019, Additional history exists Yearly B-12 01/22/2021 01/23/2020, 02/24, 05/16/2018 DIABETES-EYE EXAM 04/07/2021 04/07/2020, , 02/24/2010 (Done elsewhere), Additional history exists DIABETES-HGBA1C EVERY 6 MONTHS 05/17/2021 11/17/2020, 01/23/2020, 11/07/2019, Additional history exists CKD GFR USE SMARTSET 61384 06/26/202112/25, 11/17/2020, 05/06/2020, Additional history exists BREAST CANCER SCREENING DISCUSSION YEARLY AGES 40-75 10/01/2021 10/01/2020, 07/10/2019, 06/23/2018, Additional history exists CKD PHOS USE SMARTSET 92491 11/17/202110/28, 12/24/2019, 11/07/2019, Additional history exists CKD HGB USE SMARTSET 54740 12/25/202112/25, 12/25/2020, 11/17/2020, Additional history exists DIABETES-FOOT [...] Documents on File Type Date Recorded Patient Enrollment Management Manager Expl 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
--- OUTSIDE RECORDS SUMMARY | 2023-06-01 05:05 | External Medical Summary | Summary of Care ---
Author Name Unknown Organization [place] [address] Care Team Providers Care Supervisor Throwing Department Name Role Phone Migue Whiteside DO Primary Care Provider Reason for Visit * Reason Comments eRx-Medication Refill Encounter Details Date Type Department Care Team Description 02/21/2021 Refill Family [facility] [address] [place] [address] Ricardo Mcghee MD [address] [facility] [place] [address] Type 2 diabetes mellitus with hemoglobin A1c goal of 7.0%-8.0% ([facility]) Allergies [...] 0 0 Active Blood Glucose Monitoring Suppl (The Currency CloudUCH ULTRA 2) w/Device KIT Use to test [...] diabetes clinic 121 mL 3 1 Active clonazePAM 0.5 MG Oral Tablet (KlonoPIN)Indicati ons:Anxiety state Take 1 Tab by mouth 2 times a day. 60 Tab 0 1 Active traZODone HCl 50 MG Oral Tablet (Desyrel) TAKE ONE TABLET BY MOUTH AT BEDTIME 90 Tab 1 1 Active Potassium Chloride Ayleen ER 10 MEQ Oral Tablet Extended Release Take one 3 days per week 30 Tab 3 1 Active Colchicine 0.6 MG Oral TabletIndications: [...] abdominal pain 120 Tab 11 1 Active Cyclobenzaprine HCl 10 MG Oral Tablet (Flexeril)Indicati ons:Spinal stenosis of lumbar region without neurogenic claudication,Lumba r radiculopathy TAKE ONE TABLET BY MOUTH AT BEDTIME NEEDED FOR SPASM 30 Tab 0 1 Active Gabapentin 300 MG Oral Capsule (Neurontin)Indicat ions:Type 2 diabetes mellitus with hemoglobin A1c goal of 7.0%-8.0% ([facility]CC) TAKE ONE CAPSULE BY MOUTH THREE TIMES DAILY 270 Cap 3 1 Active Gabapentin 300 MG Oral Capsule (Neurontin)Indicat ions:Type 2 diabetes mellitus with hemoglobin A1c goal of 7.0%-8.0% (HCC) Take 1 Cap by mouth 3 times a day. 270 Cap 0 1 02/25/20 21 Discontinued Nortriptyline HCl 50 MG Oral Capsule (Pamelor)Indicatio ns:Fibromyalgia Take 1 Cap by mouth at bedtime. 90 Cap 1 1 02/22/20 21 Discontinued(Re fill) documented as of this [...] 7:36 AM EDT Signed Prescriptions: Disp Refills Gabapentin 300 MG Oral Capsule (Neurontin) 270 Cap3 Sig: TAKE ONE CAPSULE BY MOUTH THREE TIMES DAILY Authorizing Provider: MIGUE WHITESIDE * Telephone Encounter - Josef Roberto RPh - 02/21/2021 5:49 PM EDT Pending Prescriptions: Disp Refills Gabapentin 300 MG Oral Capsule (Neurontin) 270 Cap3 Sig: TAKE ONE CAPSULE BY MOUTH THREE TIMES DAILY * Telephone Encounter - Josef Roberto, [facility] - 02/21/2021 5:49 PM EDT Pending Prescriptions: Disp Refills Gabapentin 300 MG Oral Capsule (Neurontin) 270 Cap3 Sig: TAKE ONE CAPSULE BY MOUTH THREE TIMES DAILY Last Office/Telemedicine Visit: 01/14/2021 Next Office Visit: 07/20/2021 Scheduled Provider(s): Migue Whiteside, DO If no future appointments scheduled, and last appointment is greater than a year ago, please schedule patient for a follow-up appointment Last date the medication was ordered: 11/10/20 Pharmacy: [facility] [id number] Is this request for a controlled [...] Visit Family Medicine Magaly Morales, Community [facility] General Operations Manager [address] [place] [address] [phone] 03/05/2021 Office Visit Pharmacy [facility] [place] [address] [place] [address] 03/12/2021 Office Visit Nephrology Erik Lenz MD [address] [place] [address], [place] [address] [phone] 03/13/2021 Investor Relations Director [facility] Rema Real LSW [address] [place] [address] [phone] 03/17/2021 Home Visit [facility] Vera Capellan, RN [address] [place] [address] [phone] 07/20/2021 Office Visit Family Medicine Migue Whiteside DO [address] [place] [address] [phone] 08/18/2021 Office Visit Pulmonary Celsa Tafoya CRNP [address] [place] [address] [phone] 10/05/2021 Office Visit Cardiology Rey Woodall MD [address] [place] [phone] Health Maintenance Due Date Last Done Comments Pneumococcal Vaccine: 65+ Years (2 of 2) 2020 08/22/2009, 06/15/2006 DIABETES-URINE MICROALBUMIN EVERY 12 MONTHS 12/23/2020 12/24/2019, 11/30/2019, 05/24/2019, Additional history exists Yearly B-12 01/22/2021 01/23/2020, 02/24, 05/16/2018 DIABETES-EYE EXAM 04/07/2021 04/07/2020, , 02/24/2010 (Done elsewhere), Additional history exists DIABETES-HGBA1C EVERY 6 MONTHS 05/17/2021 11/17/2020, 01/23/2020, 11/07/2019, Additional history exists CKD GFR USE SMARTSET 47454 06/26/202112/25, 11/17/2020, 05/06/2020, Additional history exists BREAST CANCER SCREENING DISCUSSION YEARLY AGES 40-75 10/01/2021 10/01/2020, 07/10/2019, 06/23/2018, Additional history exists CKD PHOS USE SMARTSET 27582 11/17/202110/28, 12/24/2019, 11/07/2019, Additional history exists CKD HGB USE SMARTSET 90510 12/25/202112/25, 12/25/2020, 11/17/2020, Additional history exists DIABETES-FOOT [...] 7.0%-8.0% ([facility]) documented in this encounter Advance Directives Documents on File Type Date Recorded Patient Sterile Preparation Technician Expl 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
--- OUTSIDE RECORDS SUMMARY | 2023-06-01 05:05 | External Medical Summary | Summary of Care ---
Author Name Unknown Organization [place] [address] Care Team Providers Care Group Segment Consultant Name Role Phone Carey Whitesidelidia Ocampomelinda Primary Care Provider Encounter Details Date Type Department Care Team Description 03/02/2021 Home Visit Care Coordination [address] [place] [address] Magaly Morales, Community Health Laundry Superintendent [address], [place] [id number] Allergies Active Allergy Reactions Severity Noted Date [...] 0 04/08/2020 Active Blood Glucose Monitoring Suppl (Mimosa SystemsTOUCH ULTRA 2) w/Device KIT Use to test BG values 1 Kit 0 05/20/2020 Active Glucose Blood (ONETOUCH ULTRA BLUE) STRP Check sugars 3-4 times daily, E11.9 400 Strip 3 05/22/2020 Active TRULICITY 1.5 MG/0.5ML SOPNIndications:DM type 2 nursing care encounter ([facility]),Uncontrolled type 2 diabetes mellitus with stage 3 chronic kidney disease, with long-term current use of insulin ([facility]) inject 1.5mg (one pen) [...] 10/14/2014 Overview: ICD-10 update of inactive term Farber filter in place 08/19/2014 History of pulmonary [...] mRNA, LNP-s, No Pre serve, 2-Dose Series (Avacen) 12/29/2020,12/18/2020 Pneumococcal Polysaccharide PPV23 (Pneumovax) 08/22/2009,06/15/2006 Seasonal [...] Reading Time Taken Comments Blood Pressure 100/60 03/02/2021 1:52 PM EDT Pulse 90 03/02/2021 1:52 PM EDT Temperature 36.6 C (97.8 F) 03/02/2021 1:52 PM ED T Respiratory Rate 18 03/02/2021 1:52 PM EDT Oxygen Saturation 97% 03/02/2021 1:52 PM EDT Inhaled Oxygen Concentration - - Weight - - Height - - Body Mass Index - - documented in this encounter Progress Notes * Magaly Morales, [facility] Laundry Superintendent - 03/02/2021 2:00 PM EDT Community Health Laundry Superintendent Visit Date: 03/02/2021 Time: 1:46 PM Name: Stephanie Camp : 1955 Referral Source: Provider Source of Information: Patient COVID-19 screening completed: Yes Vitals: Vital signs completed: Yes, vital signs within normal range. BP 100/60 (BP Site: Right Arm) | Pulse 90 | Temp 36.6 C (97.8 F) | Resp 18 | LMP 03/11/2003 | SpO2 97% Condition Changes: Changes in health or social status since last visit: YES Fibromyalgia Pain with trouble sleeping at night Hands twiching at times Has been 9 days with out Klonopin and Flexeril The patient has new concerns since last visit: Yes, twitching in her hands Medications: Medication review completed? No, Not requested Does the patient have barriers to medication adherence? No. Patient stated medication must have gotten out of sequence when she was at the shelter for a short stay Patient reports difficulty paying for medications or might in the future: No. Telehealth: This is a telehealth visit: No. Symptoms Surveys and Evaluations: [facility]10 completed this visit: Yes. Score is greater than 4? Yes, notified Provider/Strip Roller Last flowsheet values for [facility]: Age 65+: 1 (03/02/2021 3:00 PM) Diagnosis (3 or more co-existing): 1 (03/02/2021 3:00 PM) Prior history of falls within 3 months: 0 (03/02/2021 3:00 PM) Incontinence: 1 (03/02/2021 3:00 PM) Visual impairment: 0 (03/02/2021 3:00 PM) Impaired functional mobility: 1 (03/02/2021 3:00 PM) Environmental hazards: 1 (03/02/2021 3:00 PM) Poly Pharmacy (4 or more prescriptions - any type): 1 (03/02/2021 3:00 PM) Pain affecting level of function: 1 (03/02/2021 3:00 PM) Cognitive impairment: 0 (03/02/2021 3:00 PM) Score - a score of 4 or more is considered at risk for fallin (03/02/2021 3:00 PM) Diabetes Survey: Blood glucose testing review: 3-4 Once 99 209 staying in this range The patient has a glucometer: Yes, + Patient tests their blood sugar 3-4 times a day Over the past two weeks blood sugar range: 200-209 Once was 99 patient had not eaten this day Plan: Notified Provider/Strip Roller of Medicaiton request: Has been 9 days with out Klonopin and Flexeril Follow Up: Patient encouraged to call the intake phone number for all urgent but not emergent issues. Scheduled to follow up with patient in 6 weeks with LES. Magaly Morales Community Health Laundry Superintendent 03/02/2021 1:46 PM documented in this encounter Plan of Treatment Upcoming Encounters Date Type Specialty Care Team Description 03/05/2021 Office Visit Pharmacy [facility] [address] [address] [place] [address] 03/12/2021 [facility] [address] [phone] 03/13/2021 Parking Technician [facility] Rema Real LSW [address] [place] [address] [phone] 03/17/2021 Home Visit [facility] Vera Capellan, RN [address] [facility] [place] [address] [phone] 04/14/2021 Home Visit Family Medicine Magaly Morales, Community Health Laundry Superintendent [address] [place] [address] [phone] 07/20/2021 Office Visit Family Medicine Kevin Whiteside DO [address] [place] [address] [phone] 08/18/2021 Office Visit Pulmonary Celsa Tafoya CRNP [address] [place] [address] [phone] 10/05/2021 Office Visit [facility]iology [facility] [place] [address] [phone] Health Maintenance Due Date Last Done Comments Pneumococcal Vaccine: 65+ Years (2 of 2) 2020 08/22/2009, 06/15/2006 DIABETES-URINE MICROALBUMIN EVERY 12 MONTHS 12/23/2020 12/24/2019, 11/30/2019, 05/24/2019, Additional history exists Yearly B-12 01/22/2021 01/23/2020, 02/24, 05/16/2018 DIABETES-EYE EXAM 04/07/2021 04/07/2020, , 02/24/2010 (Done elsewhere), Additional history exists DIABETES-HGBA1C EVERY 6 MONTHS 05/17/2021 11/17/2020, 01/23/2020, 11/07/2019, Additional history exists CKD GFR USE SMARTSET 86417 06/26/202112/25, 11/17/2020, 05/06/2020, Additional history exists BREAST CANCER SCREENING DISCUSSION YEARLY AGES 40-75 10/01/2021 10/01/2020, 07/10/2019, 06/23/2018, Additional history exists CKD PHOS USE SMARTSET 86822 11/17/202110/28, 12/24/2019, 11/07/2019, Additional history exists CKD HGB USE SMARTSET 37231 12/25/202112/25, 12/25/2020, 11/17/2020, Additional history exists DIABETES-FOOT [...] Documents on File Type Date Recorded Patient Consulting Sales Executive Expl 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
--- OUTSIDE RECORDS SUMMARY | 2023-06-01 05:05 | External Medical Summary | Summary of Care ---
Author Name Unknown Organization [place] [address] Care Team Providers Care Link Knitting Machine Operator Name Role Phone Migue Whiteside DO Primary Care Provider Reason for Visit * Reason Onset Date Comments Medication Refill 02/16/2021 Encounter Details Date Type Department Care Team Description 02/16/2021 Refill [facility] [address] [place] [address] Medina Fuentes PA-C [address] [place] [address] Spinal [...] 0 04/08/2020 Active Blood Glucose Monitoring Suppl (N-TrigUCH ULTRA 2) w/Device KIT Use to test BG values 1 Kit 0 05/20/2020 Active Glucose Blood (ONETOUCH ULTRA BLUE) STRP Check sugars 3-4 times daily, E11.9 400 Strip 3 05/22/2020 Active TRULICITY 1.5 MG/0.5ML SOPNIndications:DM type 2 nursing care encounter ([facility]),Uncontrolled type 2 diabetes mellitus with stage 3 chronic kidney disease, with long-term current use of insulin ([facility]) inject 1.5mg (one pen) under the skin [...] ([facility]) Inject up to 45 units with meals [...] Pain, Severe. 90 Tab 0 02/09/2021 Active Cyclobenzaprine HCl 10 MG Oral Tablet (Flexeril)Indicatio ns:Spinal stenosis of lumbar region without neurogenic claudication,Lumbar radiculopathy TAKE ONE TABLET BY MOUTH AT BEDTIME NEEDED FOR SPASM 30 Tab 0 02/17/2021 Active dicyclomine (BENTYL) 20 MG Tablet [...] 10/14/2014 Overview: ICD-10 update of inactive term [place] filter in place 08/19/2014 History of pulmonary [...] 12:58 PM EDT Signed Prescriptions: Disp Refills Cyclobenzaprine HCl 10 MG Oral Tablet (Fle*30 Tab 0 Sig: TAKE ONE TABLET BY MOUTH AT BEDTIME NEEDED FOR SPASM Authorizing Provider: MIGUE WHITESIDE * Telephone Encounter - Regina Gee LPN - 02/17/2021 8:39 AM EDT Pending Prescriptions: Disp Refills Cyclobenzaprine HCl 10 MG Oral Tablet (Fl*30 Tab 0 Sig: TAKE ONE TABLET BY MOUTH AT BEDTIME NEEDED FOR SPASM * Telephone Encounter - Regina Gee LPN - 02/17/2021 8:38 AM EDT Pending Prescriptions: Disp Refills Cyclobenzaprine HCl 10 MG Oral Tablet (Fl*30 Tab 0 Sig: TAKE ONE TABLET BY MOUTH AT BEDTIME NEEDED FOR SPASM Last Office/Telemedicine Visit: 01/14/2021 Next Office Visit: 07/20/2021 Scheduled Provider(s): Migue Whiteside, Last date the medication was ordered: 09/04/2020 Patient Active Problem List Diagnosis Code Dyslipidemia [...] Visit Family Medicine Magaly Morales, Community Health Sprayer Automatic Spray Machine [address] [place] [address] [phone] 03/05/2021 Office Visit Pharmacy [facility] [address] [place] [address] 03/12/2021 Office Visit Nephrology Erik Lenz MD [address] [place] [address] [phone] 03/13/2021 Naval Architect Specialist [facility] Rema Real LSW [address] [place] [address] [phone] 03/17/2021 Home Visit [facility] Vera Capellan RN [address] [place] [address] [phone] 07/20/2021 Office Visit Family Medicine Migue Whiteside DO [address] [place] [address] [phone] 08/18/2021 Office Visit Pulmonary Celsa Tafoya CRNP [address] [place] [address] [phone] 10/05/2021 Office Visit Cardiology Rey Woodall MD [address] [place] [address] [phone] Health Maintenance Due Date Last Done Comments Pneumococcal Vaccine: 65+ Years (2 of 2) 2020 08/22/2009, 06/15/2006 DIABETES-URINE MICROALBUMIN EVERY 12 MONTHS 12/23/2020 12/24/2019, 11/30/2019, 05/24/2019, Additional history exists Yearly B-12 01/22/2021 01/23/2020, 02/24, 05/16/2018 DIABETES-EYE EXAM 04/07/2021 04/07/2020, , 02/24/2010 (Done elsewhere), Additional history exists DIABETES-HGBA1C EVERY 6 MONTHS 05/17/2021 11/17/2020, 01/23/2020, 11/07/2019, Additional history exists CKD GFR USE SMARTSET 66210 06/26/202112/251, 11/17/2020, 05/06/2020, Additional history exists BREAST CANCER SCREENING DISCUSSION YEARLY AGES 40-75 10/01/2021 10/01/2020, 07/10/2019, 06/23/2018, Additional history exists CKD PHOS USE SMARTSET 70897 11/17/202110/28, 12/24/2019, 11/07/2019, Additional history exists CKD HGB USE SMARTSET 34451 12/25/202112/25, 12/25/2020, 11/17/2020, Additional history exists DIABETES-FOOT [...] Documents on File Type Date Recorded Patient Turning And Beading Machine Operator Expl anation Advanced Directive 08/22/2009 [...]
--- OUTSIDE RECORDS SUMMARY | 2023-06-01 05:05 | External Medical Summary | Summary of Care ---
Author Name Unknown Organization [facility] Address [place] [address] Care Team Providers Care Time Study Observer Name Role Phone Kevin Whiteside DO Primary Care Provider Reason for Visit * Reason Onset Date Comments [facility]: Maintenance 03/04/2021 Encounter Details Date Type Department Care Team Description 03/04/2021 Telephone [facility], [facility] [address] [place] [address] Rema Real LSW [address] [facility] [place] [address] [phone] [facility]: Maintenance Allergies Active Allergy Reactions Severity Noted Date Comments Codeine 07/08/2014 hallucination Pollen 05/18/2019 Heparin 09/04/2009 Heparin Induced Thrombocytopenia Hydrocodone Neuro complications (Please comment) 07/28/2020 Empagliflozin Other (Please comment) Medium 05/17/2018 3 yeast infections in 6 weeks after starting Morphine And Related 09/16/1997 Hallucinations Tetanus Toxoid Other (Please comment) 06/15/2011 Passed out documented as of this encounter (statuses as of 03/04/2021) Medications Medication Sig Dispensed Refills Start Date [...] 0 04/08/2020 Active Blood Glucose Monitoring Suppl (Terascala ULTRA 2) w/Device KIT Use to test BG values 1 Kit 0 05/20/2020 Active Glucose Blood (ONETOUCH ULTRA BLUE) STRP Check sugars 3-4 times daily, E11.9 400 Strip 3 05/22/2020 Active TRULICITY 1.5 MG/0.5ML SOPNIndications:DM type 2 nursing care encounter ([facility]),Uncontrolled type 2 diabetes mellitus with stage 3 chronic kidney disease, with long-term current use of insulin ([facility]) inject 1.5mg (one pen) under [...] as of this encounter (statuses as of 03/04/2021) Active Problems Problem Noted Date Hypotension 12/19/2020 [...] as of this encounter (statuses as of 03/04/2021) Resolved Problems Problem Noted Date Resolved Date [...] as of this encounter (statuses as of 03/04/2021) Immunizations Name Administration Dates Next Due COVID-19 mRNA, LNP-s, No Pre serve, 2-Dose Series ([employer]) 12/29/2020,12/18/2020 Pneumococcal Polysaccharide PPV23 (Pneumovax) 08/22/2009,06/15/2006 [...] Telephone Encounter - Rema Real LSW - 03/04/2021 10:07 AM EDT S-STEFANY called Stephanie for follow regarding medications after rec'ing referral from [facility] that Stephanie ranout of medications and expressed concern of paying for them. Left message for her to call STEFANY. O-telephone encounter A-no answer but left message. P-Will call back if do not hear back from Stephanie. documented in this encounter Plan of Treatment Upcoming Encounters Date Type Specialty Care Team Description 03/05/2021 Office Visit Pharmacy [facility] [place]ie [address] [place] [address] 03/12/2021 Office Visit Nephrology Erik Lenz MD [address] [place] [address] [phone] 03/13/2021 Artificial Limb Maker [facility] Rema Real LSW [address] [place] [address] [phone] 03/17/2021 Home Visit [facility] Vera Capellan, RN [address] [place] [address] [phone] 04/14/2021 Home Visit Family Medicine Magaly Morales, Community [facility] Landscape Photographer [address] [place] [address] [phone] 07/20/2021 Office Visit Family Medicine Kevin Whiteside DO [address] [place] [address] [phone] 08/18/2021 Office Visit Pulmonary Celsa Tafoya CRNP [address] [place] [address] [phone] 10/05/2021 Office Visit Cardiology Rey Woodall MD [address] [place] [address] [phone] Health Maintenance Due Date Last Done Comments Pneumococcal Vaccine: 65+ Years (2 of 2) 2020 08/22/2009, 06/15/2006 DIABETES-URINE MICROALBUMIN EVERY 12 MONTHS 12/23/2020 12/24/2019, 11/30/2019, 05/24/2019, Additional history exists Yearly B-12 01/22/2021 01/23/2020, 02/24, 05/16/2018 DIABETES-EYE EXAM 04/07/2021 04/07/2020, , 02/24/2010 (Done elsewhere), Additional history exists DIABETES-HGBA1C EVERY 6 MONTHS 05/17/2021 11/17/2020, 01/23/2020, 11/07/2019, Additional history exists CKD GFR USE SMARTSET 63662 06/26/202112/25, 11/17/2020, 05/06/2020, Additional history exists BREAST CANCER SCREENING DISCUSSION YEARLY AGES 40-75 10/01/2021 10/01/2020, 07/10/2019, 06/23/2018, Additional history exists CKD PHOS USE SMARTSET 10333 11/17/2021/10/2020, 12/24/2019, 11/07/2019, Additional history exists CKD HGB USE SMARTSET 50104 12/25/202112/25, 12/25/2020, 11/17/2020, Additional history exists DIABETES-FOOT [...] Documents on File Type Date Recorded Patient Cuff Turner Machine Operator Expl anation Advanced Directive 08/22/2009 [...]
--- OUTSIDE RECORDS SUMMARY | 2023-06-01 05:05 | External Medical Summary | Summary of Care ---
Author Name Unknown Organization [place] [address] Care Team Providers Care President And Chief Commercial Officer Name Role Phone Kevin Whiteside Primary Care Provider Encounter Details Date Type Department Care Team Description 02/20/2021 Scan Encounter Unspecified Department <No scans attached> [...] 10/14/2014 Overview: ICD-10 update of inactive term Baxter filter in place 08/19/2014 History of pulmonary [...] Visit Family Medicine Magaly Morales, Community Health Foxing Closer [address] [facility] [place] [address] 03/05/2021 Office Visit Pharmacy [facility] [address] [place] [address] 03/12/2021 Office Visit Nephrology Erik Lenz MD 200 [facility], [place] [address] [phone] 03/13/2021 Petal Cutter [facility] Rema Real LSW [address] [place] [address] [phone] 03/17/2021 Home Visit [facility] Vera Capellan RN [address] [place] [address] [phone] 07/20/2021 Office Visit Family Medicine Kevin Whiteside DO [address] [place] [address] [phone] 08/18/2021 Office Visit Pulmonary Celsa Tafoya CRNP [address] [place] [address] [phone] 10/05/2021 Office Visit Cardiology Rey Woodall MD [address] [place] [address] [phone] Health Maintenance Due Date Last Done Comments Pneumococcal Vaccine: 65+ Years (2 of 2) 2020 08/22/2009, 06/15/2006 DIABETES-URINE MICROALBUMIN EVERY 12 MONTHS 12/23/2020 12/24/2019, 11/30/2019, 05/24/2019, Additional history exists Yearly B-12 01/22/2021 01/23/2020, 02/24, 05/16/2018 DIABETES-EYE EXAM 04/07/2021 04/07/2020, , 02/24/2010 (Done elsewhere), Additional history exists DIABETES-HGBA1C EVERY 6 MONTHS 05/17/2021 11/17/2020, 01/23/2020, 11/07/2019, Additional history exists CKD GFR USE SMARTSET 55611 06/26/202112/25, 11/17/2020, 05/06/2020, Additional history exists BREAST CANCER SCREENING DISCUSSION YEARLY AGES 40-75 10/01/2021 10/01/2020, 07/10/2019, 06/23/2018, Additional history exists CKD PHOS USE SMARTSET 39241 11/17/202110/28, 12/24/2019, 11/07/2019, Additional history exists CKD HGB USE SMARTSET 13630 12/25/202112/25, 12/25/2020, 11/17/2020, Additional history exists DIABETES-FOOT [...] Documents on File Type Date Recorded Patient Charge Hand Expl 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
--- OUTSIDE RECORDS SUMMARY | 2023-06-01 05:06 | External Medical Summary | Summary of Care ---
Author Name Unknown Organization [place] [address] Care Team Providers Care Spray Painting Machine Operator Name Role Phone Kevin Whiteside DO Primary Care Provider Reason for Visit * Reason Comments Dosage Adjustment In Person (Anticoag Cl inic) Diabetes Follow-Up Encounter Details Date Type Department Care Team Description 02/02/2021 Office Visit Pharmacy, [facility] [address] [facility] [place] [address] [facility] [address] [facility] [place] [address] Type 2 diabetes mellitus with hemoglobin A1c goal of 7.0%-8.0% ([facility])* Allergies Active Allergy Reactions Severity Noted Date Comments Codeine 07/08/2014 hallucination Pollen 05/18/2019 Heparin 09/04/2009 Heparin Induced Thrombocytopenia Hydrocodone Neuro complications (Please comment) 07/28/2020 Empagliflozin Other (Please comment) Medium 05/17/2018 3 yeast infections in 6 weeks after starting Morphine And Related 09/16/1997 Hallucinations Tetanus Toxoid Other (Please comment) 06/15/2011 Passed out documented as of this encounter (statuses as of 02/02/2021) Medications Medication Sig Dispensed Refills Start Date [...] as directed 400 Each 3 12/18/2019 Active traZODone (DESYREL) 50 MG Tablet Take 1 Tab by mouth at bedtime. 90 Tab 3 12/18/2019 Active Additional Information Patient not taking. Reported on 02/02/2021 omeprazole (PRILOSEC) 20 MG CPDR Take 1 Cap by mouth daily. 90 Cap 3 12/18/2019 Active potassium chloride ER 10 MEQ TBCR Take one 3 days per week 30 Tab 3 02/26/2020 Active Additional Information Patient taking differently: 10 mEq Oral DAILY, (No instructions reported), Reported on 12/09/2020 DIURETIC TITRATION PLANIndications:Chr onic diastolic congestive heart failure (HCC) If no improvement on day 3, contact heart failure managing provider. 1 Each 0 04/08/2020 Active dicyclomine (BENTYL) 20 MG Tablet Take 1 Tab by mouth 4 times a day as needed for Pain, Mild. For abdominal pain 120 Tab 11 05/06/2020 Active Blood Glucose Monitoring Suppl (GoSpotCheckTOUCH ULTRA 2) w/Device KIT Use to test [...] once weekly 6 mL 1 05/27/2020 Active colchicine 0.6 MG TabletIndications:L eukocytoclastic vasculitis ([facility]) Take 1/2 tab daily 45 Tab 1 06/03/2020 Active clobetasol propionate (TEMOVATE) 0.05 % creamIndications:Kalee [...] mouth daily. 1 Tab 0 07/24/2020 Active Cyclobenzaprine HCl 10 MG Oral Tablet (FLEXERIL)Indicatio ns:Spinal stenosis of lumbar region without neurogenic claudication,Lumbar radiculopathy TAKE ONE TABLET BY MOUTH AT BEDTIME NEEDED FOR SPASM 30 Tab 0 09/04/2020 Active Levothyroxine Sodium 200 MCG Oral Tablet (LEVOXYL)Indication s:Postsurgical hypothyroidism TAKE ONE TABLET BY MOUTH IN THE MORNING AT LEAST 30 MINUTES PRIOR TO BREAKFAST OR OTHER MEDS 90 Tab 1 09/20/2020 Active Nortriptyline HCl 50 MG Oral Capsule (PAMELOR)Indication s:Fibromyalgia TAKE ONE CAPSULE BY MOUTH AT BEDTIME 90 Cap 1 09/23/2020 Active Additional Information Patient taking differently: 50 mg Oral HS, Reported on 12/25/2020 DULoxetine HCl 30 MG Oral Capsule Delayed [...] of 7.0%-8.0% ([facility]) Take 1 Cap by mouth 3 times a day. 270 Cap 0 11/10/2020 Active traMADol HCl 50 MG Oral Tablet (Ultram)Indications :Chronic pain syndrome Take 1 Tab by mouth every 8 hours as needed for Pain, Severe. 90 Tab 0 11/10/2020 Active rOPINIRole HCl 2 MG [...] for Nausea. 30 Tab 0 12/29/2020 Active clonazePAM 0.5 MG Oral Tablet (KlonoPIN)Indicatio ns:Anxiety state Take 1 Tab by mouth 2 times a day. 60 Tab 0 12/29/2020 Active Levothyroxine Sodium 50 MCG Oral Tablet (Levoxyl)Indication s:Hyperparathyroidi sm, secondary renal (HCC) Take 1 Tab by mouth daily. (at least 30 min prior to breakfast or other meds) 30 Tab 11 01/14/2021 Active NovoLOG FlexPen 100 UNIT/ML Subcutaneous Solution Pen-injector (insulin aspart)Indications: Type 2 diabetes mellitus with hemoglobin A1c goal of 7.0%-8.0% ([facility]) Inject up to 45 units with meals plus sliding scale as directed by diabetes clinic 121 mL 3 02/02/2021 Active NovoLOG FlexPen 100 UNIT/ML Subcutaneous Solution Pen-injector (insulin aspart)Indications: Type 2 diabetes mellitus with hemoglobin A1c goal of 7.0%-8.0% ([facility]) Inject up to 30 units with meals plus sliding scale as directed by diabetes clinic 81 mL 3 07/01/2020 1 Discontinu ed(Refill) documented as of this encounter (statuses as of 02/02/2021) Active Problems Problem Noted Date Hypotension 12/19/2020 [...] as of this encounter (statuses as of 02/02/2021) Resolved Problems Problem Noted Date Resolved Date [...] as of this encounter (statuses as of 02/02/2021) Immunizations Name Administration Dates Next Due COVID-19 [...] this encounter Progress Notes * Rose Avila, [facility] - 02/02/2021 7:59 AM EDT Medication Therapy Disease Management [facility] - Diabetes Management Progress Note Stephanie Camp, identified by name and date of , is a 65 year old female being seen for diabetes management/education. Patient presents for return diabetic visit. DIABETES: Current diabetic medications: Diabetic Medications: INCREASE: Novolog - 40 units with meals +SS 1:25 >150 Tresiba 60 units HS Medication Injection Site: Abdomen Lifestyle: Diet: unchanged Glucose Review/SMBG: Readings obtained from patient device Pre am Post am Pre Lunch Post Lunch Pre pm Post pm HS 3am 298 234 299 232 324 231 234 240 267 218 312 213 287 315 232 245 184 218 193 206 Average 261 #DIV/0! 221 251 303 #DIV/0! 219 206 Hi 315 0 232 267 324 0 232 206 Lo 184 0 213 234 287 [address] 265[address]8 0 218 #DIV/0! 299 0 224.5 206 Range 131 0 19 33 37 0 39 0 Hypoglycemia: Does your blood sugar go below 70 mg/dL? No Hyperglycemia symptoms present: none Hemoglobin AIC Results: Lab Results Component Value Date/Time HEMOGLOBIN A1C - [facility] 8.3 (H) 11/17/2020 01:00 PM HEMOGLOBIN A1C - [facility] 7.3 (H) 01/23/2020 11:11 AM HEMOGLOBIN A1C - [facility] 8.3 (H) 11/07/2019 03:04 PM HEMOGLOBIN A1C - [facility] 9.4 (H) 08/09/2019 11:02 AM Lab Results Component Value Date/Time CREATININE [...] (A) 02/26/2019 HYPERTENSION: Patient on ACEi/ARB: no, delcine BP Readings from Last 3 Encounters: 02/02/21 112/74 01/19/21 108/62 01/14/21 126/80 Blood pressure at goal: yes HYPERLIPIDEMIA: Patient is taking moderate or high intensity statin: No Current regimen: None Goal statin intensity: moderate The 10-year ASCVD risk score (Tekamahadrianna JOHNS Jr., et al., 2013) is: 12.3% Values used to calculate the score: Age: 65 years Sex: Female Is Non- : No Diabetic: Yes Tobacco smoker: No Systolic Blood Pressure: 112 mmHg Is BP treated: Yes HDL Cholesterol: [...] Vaccine: 65+ Years (2 of 2) 2020 DIABETES-URINE MICROALBUMIN EVERY 12 MONTHS 12/23/2020 Yearly B-12 01/22/2021 ASSESSMENT & PLAN: No diagnosis found. BG Readings Blood sugars uncontrolled. BG values continue to range in the 200s. Medications Reviewed current regimen, patient is adherent to regimen. Recommending to increase sliding scale again, patient agreeable. Diet, Exercise, Lifestyle No significant lifestyle changes since last visit. Discussed with patient. Patient is agreeable to SMBG 4 time(s) daily. Patient aware to contact clinic if any hypoglycemia before next visit. MEDICATION CHANGES: yes, see below; preferred pharmacy: [facility] ([facility]) Diabetic Medications: INCREASE: Novolog - 45 units with meals +SS 1:25 >150 Tresiba 60 units HS HEALTH MAINTENANCE INTERVENTIONS: Labs: Up to Date Immunizations: Up to Date Foot Exam: Up to Date Eye Exam: Up to Date Annual Wellness Visit: Up to Date FOLLOW UP: Return to clinic in 4 weeks Next Office Visit: 03/05/2021 Scheduled Provider(s): [facility] Jeramie Ordazthaddeus Avila RPh Clinical Pharmacist - Coverstitch Machine Operator Medication Therapy Management Clinic 02/02/2021, 7:59 AM documented in this encounter Plan of Treatment Upcoming Encounters Date Type Specialty Care Team Description 02/10/2021 Home Visit [facility] Vera Capellan RN [address] [place] [address] [phone] 02/11/2021 [facility] Visit [facility]a Real LSW [address] [facility] [place] [address] [phone] 02/27/2021 Home Visit Family Medicine Magaly Morales, Community Health [employer] Police Lieutenant [address] [place] [address] [phone] 03/05/2021 Office Visit Pharmacy [facility], [facility] Jeramie [address] [place] [address] 03/18/2021 Office Visit Nephrology Erik Lenz MD [address] [place] [address] [phone] 07/20/2021 Office Visit Family Medicine Kevin Whiteside DO [address] [place] [address] [phone] 08/18/2021 Office Visit Pulmonary Celsa Tafoya CRNP [address] [place] [address] [phone] 10/05/2021 Office Visit Cardiology Rey Woodall MD [address] [place] [address] [phone] Health Maintenance Due Date Last Done Comments Pneumococcal Vaccine: 65+ Years (2 of 2) 2020 08/22/2009, 06/15/2006 DIABETES-URINE MICROALBUMIN EVERY 12 MONTHS 12/23/2020 12/24/2019, 11/30/2019, 05/24/2019, Additional history exists Yearly B-12 01/22/2021 01/23/2020, 02/24, 05/16/2018 DIABETES-EYE EXAM 04/07/2021 04/07/2020, , 02/24/2010 (Done elsewhere), Additional history exists DIABETES-HGBA1C EVERY 6 MONTHS 05/17/2021 11/17/2020, 01/23/2020, 11/07/2019, Additional history exists CKD GFR USE SMARTSET 99663 06/26/202112/25, 11/17/2020, 05/06/2020, Additional history exists BREAST CANCER SCREENING DISCUSSION YEARLY AGES 40-75 10/01/2021 10/01/2020, 07/10/2019, 06/23/2018, Additional history exists CKD PHOS USE SMARTSET 04521 11/17/202110/28, 12/24/2019, 11/07/2019, Additional history exists CKD HGB USE SMARTSET 95834 12/25/202112/25, 12/25/2020, 11/17/2020, Additional history exists DIABETES-FOOT [...] goal of 7.0%-8.0% ([facility])- Primary documented in this encounter Advance Directives Documents on File Type Date Recorded Patient Wic Site Coordinator Expl 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
--- OUTSIDE RECORDS SUMMARY | 2023-06-01 05:06 | External Medical Summary | Summary of Care ---
Author Name Unknown Organization [facility] Address [place], [place] [address] Care Team Providers Care Him Specialists Name Role Phone Kevin Whiteside DO Primary [...] 11 05/06/2020 Active Blood Glucose Monitoring Suppl (Re[place] ULTRA 2) w/Device KIT Use to test BG values 1 Kit 0 05/20/2020 Active Glucose Blood (Emory UniversityTOUCH ULTRA BLUE) STRP Check sugars 3-4 times daily, E11.9 400 Strip 3 05/22/2020 Active TRULICITY 1.5 MG/0.5ML SOPNIndications:DM type 2 nursing care encounter ([facility]),Uncontrolled type 2 diabetes mellitus with stage 3 chronic kidney disease, with long-term current use of insulin ([facility]) inject 1.5mg (one pen) under the skin [...] Active Cyclobenzaprine HCl 10 MG Oral Tablet (FLEXERIL)Indications :Spinal stenosis of lumbar region without neurogenic claudication,Lumbar radiculopathy TAKE ONE TABLET BY MOUTH AT BEDTIME NEEDED FOR SPASM 30 Tab 0 09/04/2020 Active Levothyroxine Sodium 200 MCG Oral Tablet (LEVOXYL)Indications: Postsurgical hypothyroidism TAKE ONE TABLET BY MOUTH IN THE MORNING AT LEAST 30 MINUTES PRIOR TO BREAKFAST OR OTHER MEDS 90 Tab 1 09/20/2020 Active Nortriptyline HCl 50 MG Oral Capsule (PAMELOR)Indications: Fibromyalgia TAKE ONE CAPSULE BY MOUTH AT BEDTIME [...] 10/02/2020 Active Gabapentin 300 MG Oral Capsule (Neurontin)Indication s:Type 2 diabetes mellitus with hemoglobin A1c goal of 7.0%-8.0% ([facility]) Take 1 Cap by mouth 3 times [...] Tablet (Lasix)Indications:Ch ronic diastolic congestive heart failure ([facility]) Take 0.5 Tabs by mouth 2 times [...] Pain, Severe. 90 Tab 0 02/09/2021 Active documented as of this encounter (statuses [...] mRNA, LNP-s, No Pre serve, 2-Dose Series (HeyStaks) 12/29/2020,12/18/2020 Pneumococcal Polysaccharide PPV23 (Pneumovax) 08/22/2009,06/15/2006 Seasonal [...] Visit Family Medicine Magaly Morales, Community Health Furnace Attendant [address] [place] [address] [phone] 03/05/2021 Office Visit Pharmacy Danuta Ordaz [address] [place] [id number] 03/12/2021 Office Visit Nephrology Erik Lenz MD [address] [place] [address] [phone] 03/13/2021 Physical Security Engineer [facility] Rema Real LSW [address] [place] [address] [phone] 03/17/2021 Home Visit [facility] Vera Capellan RN [address] [place] [address] [phone] 07/20/2021 Office Visit Family Medicine Kevin Whiteside DO [address] [place] [address] [phone] 08/18/2021 Office Visit Pulmonary Celsa Tafoya CRNP [address] [place] [id number] 10/05/2021 Office Visit Cardiology Rey Woodall MD [address] [place] [address] [phone] Health Maintenance Due Date Last Done Comments Pneumococcal Vaccine: 65+ Years (2 of 2) 2020 08/22/2009, 06/15/2006 DIABETES-URINE MICROALBUMIN EVERY 12 MONTHS 12/23/2020 12/24/2019, 11/30/2019, 05/24/2019, Additional history exists Yearly B-12 01/22/2021 01/23/2020, 02/24, 05/16/2018 DIABETES-EYE EXAM 04/07/2021 04/07/2020, , 02/24/2010 (Done elsewhere), Additional history exists DIABETES-HGBA1C EVERY 6 MONTHS 05/17/2021 11/17/2020, 01/23/2020, 11/07/2019, Additional history exists CKD GFR USE SMARTSET 92472 06/26/202112/25, 11/17/2020, 05/06/2020, Additional history exists BREAST CANCER SCREENING DISCUSSION YEARLY AGES 40-75 10/01/2021 10/01/2020, 07/10/2019, 06/23/2018, Additional history exists CKD PHOS USE SMARTSET 70056 11/17/2021 02/2 10/2020, 12/24/2019, 11/07/2019, Additional history exists CKD HGB USE SMARTSET 00264 12/25/202112/25, 12/25/2020, 11/17/2020, Additional history exists DIABETES-FOOT [...] Documents on File Type Date Recorded Patient Recovery Rn Expl 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
--- OUTSIDE RECORDS SUMMARY | 2023-06-01 05:06 | External Medical Summary | Summary of Care ---
Author Name Unknown Organization [place] [address] Care Team Providers Care Product Support Engineer Name Role Phone Migue Whiteside DO Primary Care Provider Reason for Visit * Reason Onset Date Comments Medication Refill 02/03/2021 Encounter Details Date Type Department Care Team Description 02/03/2021 Refill [facility] [address] [place] [address] Medina Fuentes PA-C [address] [place] [address] Anxiety state Allergies Active [...] as of this encounter (statuses as of 02/04/2021) Medications Medication Sig Dispensed Refills Start Date [...] 11 05/06/2020 Active Blood Glucose Monitoring Suppl (Swan IncTOUCH ULTRA 2) w/Device KIT Use to test BG values 1 Kit 0 05/20/2020 Active Glucose Blood (ONETOUCH ULTRA BLUE) STRP Check sugars 3-4 times daily, E11.9 400 Strip 3 05/22/2020 Active TRULICITY 1.5 MG/0.5ML SOPNIndications:DM type 2 nursing care encounter ([facility]),Uncontrolled type 2 diabetes mellitus with stage 3 chronic kidney disease, with long-term current use of insulin ([facility]) inject 1.5mg (one pen) under the skin once weekly 6 mL 1 05/27/2020 Active colchicine 0.6 MG TabletIndications:L eukocytoclastic vasculitis (HCC) Take 1/2 tab [...] of 7.0%-8.0% ([facility]) Take 1 Cap by mouth 3 times [...] a day. 60 Tab 0 02/04/2021 Active clonazePAM 0.5 MG Oral Tablet (KlonoPIN)Indicatio ns:Anxiety state Take 1 Tab by mouth 2 times a day. 60 Tab 0 12/29/2020 1 Discontinu ed(Refill) documented as of this encounter (statuses as of 02/04/2021) Active Problems Problem Noted Date Hypotension 12/19/2020 [...] as of this encounter (statuses as of 02/04/2021) Resolved Problems Problem Noted Date Resolved Date [...] as of this encounter (statuses as of 02/04/2021) Immunizations Name Administration Dates Next Due COVID-19 [...] Telephone Encounter - Migue Whiteside DO - 02/04/2021 7:32 AM EDT Signed Prescriptions: Disp Refills clonazePAM 0.5 MG Oral Tablet (KlonoPIN) 60 Tab 0 Sig: Take 1 Tab by mouth 2 times a day. Authorizing Provider: MIGUE WHITESIDE * Telephone Encounter - Neelam Zarco LPN - 02/03/2021 1:28 PM EDT Pending Prescriptions: Disp Refills clonazePAM 0.5 MG Oral Tablet (KlonoPIN) 60 Tab 0 Sig: Take 1 Tab by mouth 2 times a day. Last Office/Telemedicine Visit: 01/14/2021 Next Office Visit: 07/20/2021 Scheduled Provider(s): Migue Whiteside DO Last date the medication was ordered: 12/29/20 Patient Active Problem List Diagnosis Code Dyslipidemia E78.5 ELLIE (generalized anxiety disorder) F41.1 Postsurgical hypothyroidism E89.0 ELISSA (obstructive sleep apnea) G47.33 Venous insufficiency I87.2 HTN, goal below 130/80 I10 History of pulmonary embolus (PE) Z86.711 Statin intolerance Z78.[address] Z95.828 Type 2 diabetes mellitus with hemoglobin A1c goal of 7.0%-8.0% ([facility]) E11.9 Fibromyalgia M79.7 Abnormality of gait R26.9 Restless legs syndrome G25.81 Gastroesophageal reflux disease with esophagitis K21.00 Morbid obesity with BMI of 50.0-59.9, adult ([facility]) E66.01, Z68.43 Controlled substance agreement signed Z79.899 Chronic diastolic congestive heart failure ([facility]) I50.32 Mild episode of recurrent major depressive disorder ([facility]) F33.0 Lumbar radiculopathy M54.16 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, NYHA class 1 and CKD stage 3 ([facility]) I13.0, I50.30, N18.30 Hyperparathyroidism, secondary renal ([facility]) N25.81 Vasculitis ([facility]) I77.6 Primary osteoarthritis of [...] - [facility] 9.4 (H) 08/09/2019 11:02 AM * Telephone Encounter - Neelam Zarco LPN - 02/03/2021 1:28 PM EDT Message from [employer]: Refills have been requested for the following medications: clonazePAM 0.5 MG Oral Tablet (KlonoPIN) [Medina Fuentes PA-C] Preferred pharmacy: [facility] [id number] documented in this encounter Plan of Treatment Upcoming Encounters Date Type Specialty Care Team Description 02/10/2021 Home Visit [facility] Vera Capellan RN [address] [place] [address] [phone] 02/11/2021 Home Visit [facility] Rema Real LSW [address] [place] [address] [phone] 02/27/2021 Home Visit Family Medicine Magaly Morales, Community Health Manual Training Teacher [address] [place] [address] 03/05/2021 Office Visit Pharmacy [place] Jeramie [address] [facility] [address] 03/18/2021 Office Visit Nephrology Erik Lenz MD [address] [facility], [place] [phone] 07/20/2021 Office Visit Family Medicine Migue Whiteside DO [facility] [place] [address] 08/18/2021 Office Visit [facility] [address] 10/05/2021 Office Visit Cardiology Rey Woodall MD [address] [facility] [address] Health Maintenance Due Date Last Done Comments Pneumococcal Vaccine: 65+ Years (2 of 2) 2020 08/22/2009, 06/15/2006 DIABETES-URINE MICROALBUMIN EVERY 12 MONTHS 12/23/2020 12/24/2019, 11/30/2019, 05/24/2019, Additional history exists Yearly B-12 01/22/2021 01/23/2020, 02/24, 05/16/2018 DIABETES-EYE EXAM 04/07/2021 04/07/2020, , 02/24/2010 (Done elsewhere), Additional history exists DIABETES-HGBA1C EVERY 6 MONTHS 05/17/2021 11/17/2020, 01/23/2020, 11/07/2019, Additional history exists CKD GFR USE SMARTSET 44035 06/26/202112/25, 11/17/2020, 05/06/2020, Additional history exists BREAST CANCER SCREENING DISCUSSION YEARLY AGES 40-75 10/01/2021 10/01/2020, 07/10/2019, 06/23/2018, Additional history exists CKD PHOS USE SMARTSET 20286 11/17/202110/28, 12/24/2019, 11/07/2019, Additional history exists CKD HGB USE SMARTSET 55496 12/25/202112/25, 12/25/2020, 11/17/2020, Additional history exists DIABETES-FOOT [...] Documents on File Type Date Recorded Patient Professor Of Environmental Studies Expl 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
--- OUTSIDE RECORDS SUMMARY | 2023-06-01 05:06 | External Medical Summary | Summary of Care ---
Author Name Unknown Organization [place] [address] Care Team Providers Care Commercial Escrow Assistant Name Role Phone Kevin Whiteside DO Primary Care Provider Reason for Visit * Reason Comments [facility]: Maintenance Encounter Details Date Type Department Care Team Description 02/10/2021 Home Visit [facility], [facility] [address] [facility] [place] [address] Vera Capellan RN [address] [facility] [address] [phone] Benign hypertensive heart and kidney disease with [...] as of this encounter (statuses as of 02/10/2021) Medications Medication Sig Dispensed Refills Start Date [...] 11 05/06/2020 Active Blood Glucose Monitoring Suppl (SNOBSWAP ULTRA 2) w/Device KIT Use to test BG values 1 Kit 0 05/20/2020 Active Glucose Blood (3JamTOUCH ULTRA BLUE) STRP Check sugars 3-4 times [...] 7.0%-8.0% ([facility]) Take 1 Cap by mouth 3 times [...] as of this encounter (statuses as of 02/10/2021) Active Problems Problem Noted Date Hypotension 12/19/2020 [...] 10/14/2014 Overview: ICD-10 update of inactive term [place] filter in place 08/19/2014 History of pulmonary embolus (PE) 2013 Statin intolerance 07/16/2014 HTN, goal below 130/80 02/22/2014 Venous insufficiency 02/07/2013 ELISSA (obstructive sleep apnea) 09/16/2011 Overview: CPAP 11 cwp Mild, AHI 11.3 but with significant nocturnal hypoxemia Dicks Postsurgical hypothyroidism 06/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 documented as of this encounter (statuses as of 02/10/2021) Resolved Problems Problem Noted Date Resolved Date [...] as of this encounter (statuses as of 02/10/2021) Immunizations Name Administration Dates Next Due COVID-19 [...] Sign Reading Time Taken Comments Blood Pressure 100/58 02/10/2021 10:04 AM EDT Pulse 92 02/10/2021 10:04 AM EDT Temperature 36.7 C (98.1 F) 02/10/2021 10:04 AM E DT Respiratory Rate 18 02/10/2021 10:04 AM EDT Oxygen Saturation 93% 02/10/2021 10:04 AM EDT RA Inhaled Oxygen Concentration - - Weight - - Height - - Body Mass Index - - documented in this encounter Progress Notes * Vera Capellan, RN - 02/10/2021 6:46 AM EDT [facility] Oyster Bed Worker Visit Date: 02/10/2021 Time: 10:06 AM Name: Stephanie Camp : 1955 Current Concerns: Pt seen for return RNCM visit Saw Cardio last week- recommended to take additional Lasix 20mg for 2-3 days as needed for increased edema Patient reports she took an extra Lasix yesterday d/t feeling more bloated and legs aching from increased edema. Today that has improved and she did not take any extra today. BSGs have been ranging mostly in the low 200's, which is an improvement. MTM involved for DM management Dizziness is less frequent and less severe. States she no longer gets nausea. Takes meclizine prn with relief. Still doing out patient PT for elbow. Has been having issues with allergies - sneezing, sinus headaches, "stuffy" at times - reports she has tried Claritin in the past but has difficulty affording in. She will try to get and also get Flonase Reports she took Benadry in the past but encouraged not to take Benadryl anymore. Patient has been taking Nervive nerve relief dietary supplement for neuropathy pain. She states it helps her pain and helps her sleep at night. She started this 4 days ago. She takes one each night before bed. Discussed with forming mill operator and appears to have no harmful ingredients. BP lower today - will check with own machine twice daily and record - not on any BP meds now but did have extra lasix yesterday. Pt will notify [facility] if consistently low Physical Exam: BP 100/58 | Pulse 92 | Temp 36.7 C (98.1 F) | Resp 18 | LMP 03/11/2003 | SpO2 93% Comment: RA Pain 8 of lower back - takes Flexeril q hs Physical Exam Constitutional: General: She is not in acute distress. Appearance: She is obese. HENT: Nose: Congestion ("allergies") present. Cardiovascular: Rate and [...] Positive for fatigue. HENT: Positive for congestion, sinus pressure, sinus pain and sneezing. Eyes: Negative. Respiratory: Positive for shortness of breath (AVENDAÑO - at baseline). Cardiovascular: Positive for leg swelling. Gastrointestinal: Negative. Endocrine: Negative. Genitourinary: Negative. Musculoskeletal: Positive for arthralgias and back pain. Skin: Negative. Allergic/Immunologic: Positive for environmental allergies. Neurological: Positive for dizziness. Hematological: Negative. Psychiatric/Behavioral: Negative. Medication Reconciliation: (See medication list) Does patient take medications as ordered: Yes Patient Well Being: PHQ2/9: No questionnaires available. No change in living situation. SW involved for support/assist in home. Seeing Dr. Julio for depression. Denies any recent falls. Advanced Care Planning: POLST. Patient's Goals of [...] with roller walker at ALL times o2 2lncqhs and day prn cpap with 2l qhs Apap, tramadol and topical pain relievers for pain Can also take flexeril prn back pain No NSAIDS Low na, ccd diet, 1.5L fluid restriction Ck bsgs and record tid- followed by MTM clinic Wear b/l le support hose-on day/off night Per cardio - may take additional Lasix for 2-3 days for increased edema if needed SW assisting to get more help in the home Change position slowly Meclizine prn for vertigo Zofran prn nausea Outpatient PT for elbow Flonase for allergie symptoms Do not take Benadryl - get Claritin for allergies BP borderline low - pt will check twice daily and record - will call [facility] if consistently having systolic <100. Home Interventions Provided: Home Intervention: Other; Evaluation Reinforced current Plan of Care, including self-management and medication regimen Patient's 'Red Flags': 1. Increased SOB 2. Increased edema 3. Worsening pain Patient Needs to Remember: Call [facility] at with any new or worsening health concerns or problems, red flag symptoms. Referrals Needed: Other none Follow Up: Patient encouraged to call the intake phone number for all urgent but not emergent issues. Is the patient new to [facility] within the last 30 days? No, Assess appropriateness for upcoming telehealth visits. Cancel telehealth visits & schedule home visit with care engineer steam(s)as indicated. Provider is in agreement with Plan of Care: Yes Scheduled to follow up with patient in 3 weeks with LES and 3 weeks after with CORI. Vera Capellan RN 02/10/2021 10:06 AM documented in this encounter Plan of Treatment Upcoming Encounters Date Type Specialty Care Team Description 02/11/2021 Home Visit [facility] Rema Real LSW [address] [address] [phone] 02/27/2021 Home Visit Family Medicine Magaly Morales, Community Health Php Magento Developer [address] [place] [address] [phone] 03/05/2021 Office Visit Pharmacy [facility] [address] [place] [address] 03/12/2021 Office Visit Nephrology Erik Lenz MD [address] [place] [address] [phone] 03/17/2021 Home Visit [facility] Vera Capellan RN [address] [place] [address] [phone] 07/20/2021 Office Visit Family Medicine Kevin Whiteside DO [address] [place] [address] [phone] 08/18/2021 Office Visit Pulmonary Celsa Tafoya CRNP [address] [place] [address] [phone] 10/05/2021 Office Visit Cardiology Rey Woodall MD [address] [place] [address] [phone] Health Maintenance Due Date Last Done Comments Pneumococcal Vaccine: 65+ Years (2 of 2) 2020 08/22/2009, 06/15/2006 DIABETES-URINE MICROALBUMIN EVERY 12 MONTHS 12/23/2020 12/24/2019, 11/30/2019, 05/24/2019, Additional history exists Yearly B-12 01/22/2021 01/23/2020, 02/24, 05/16/2018 DIABETES-EYE EXAM 04/07/2021 04/07/2020, , 02/24/2010 (Done elsewhere), Additional history exists DIABETES-HGBA1C EVERY 6 MONTHS 05/17/2021 11/17/2020, 01/23/2020, 11/07/2019, Additional history exists CKD GFR USE SMARTSET 89001 06/26/202112/25, 11/17/2020, 05/06/2020, Additional history exists BREAST CANCER SCREENING DISCUSSION YEARLY AGES 40-75 10/01/2021 10/01/2020, 07/10/2019, 06/23/2018, Additional history exists CKD PHOS USE SMARTSET 44930 11/17/202110/28, 12/24/2019, 11/07/2019, Additional history exists CKD HGB USE SMARTSET 25875 12/25/202112/25, 12/25/2020, 11/17/2020, Additional history exists DIABETES-FOOT [...] Documents on File Type Date Recorded Patient Exterminator Helper Expl 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
--- OUTSIDE RECORDS SUMMARY | 2023-06-01 05:06 | External Medical Summary | Summary of Care ---
Author Name Unknown Organization [place] [address] Care Team Providers Care Clerk Rating Name Role Phone Kevin Whiteside DO Primary Care Provider Reason for Visit * Reason Comments [facility]: Maintenance Encounter Details Date Type Department Care Team Description 02/11/2021 Home Visit [facility], [facility] [address] [place] [address] Rema Real, PRODUCTION MINER [address] [facility] [place] [address] [phone] Allergies Active Allergy Reactions Severity Noted Date Comments Codeine 07/08/2014 hallucination Pollen 05/18/2019 Heparin 09/04/2009 Heparin Induced Thrombocytopenia Hydrocodone Neuro complications (Please comment) 07/28/2020 Empagliflozin Other (Please comment) Medium 05/17/2018 3 yeast infections in 6 weeks after starting Morphine And Related 09/16/1997 Hallucinations Tetanus Toxoid Other (Please comment) 06/15/2011 Passed out documented as of this encounter (statuses as of 02/11/2021) Medications Medication Sig Dispensed Refills Start Date [...] 11 05/06/2020 Active Blood Glucose Monitoring Suppl (SkillPixels ULTRA 2) w/Device KIT Use to test BG values 1 Kit 0 05/20/2020 Active Glucose Blood (MailMeNetworkTOUCH ULTRA BLUE) STRP Check sugars 3-4 times daily, E11.9 400 Strip 3 05/22/2020 Active TRULICITY 1.5 MG/0.5ML SOPNIndications:DM type 2 nursing care encounter ([facility]),Uncontrolled type 2 diabetes mellitus with stage 3 chronic kidney disease, with long-term current use of insulin ([facility]) inject 1.5mg (one pen) [...] goal of 7.0%-8.0% ([facility]) Take 1 Cap by [...] as of this encounter (statuses as of 02/11/2021) Active Problems Problem Noted Date Hypotension 12/19/2020 [...] as of this encounter (statuses as of 02/11/2021) Resolved Problems Problem Noted Date Resolved Date [...] as of this encounter (statuses as of 02/11/2021) Immunizations Name Administration Dates Next Due COVID-19 mRNA, LNP-s, No Pre serve, 2-Dose Series (GridCraft) 12/29/2020,12/18/2020 Pneumococcal Polysaccharide PPV23 (Pneumovax) 08/22/2009,06/15/2006 Seasonal [...] this encounter Progress Notes * Rema Real, PRODUCTION MINER - 02/11/2021 11:21 AM EDT Call to [email or web address] for follow up regarding chore work for Stephanie. 9-1000 am Caity and boyfriend. Stephanie meeting with Dr Landry two sessions [facility] Social Work Return Visit Is this for a hospital or rehab discharge to home? No Support System in the home: Yes, STEFANY HERNANDEZ arranging chore service for Stephanie to clean apartment, getting PT and OT-through [facility]-out patient and will be completed soon. No other community services. Support System outside of the home: Yes - : Informal Support (Family and Friends) Transportation: Drives Health Care Benefits: Has health insurance and is adequate to meet needs ?: No DME Equipment: Rolator and walker and cane, O2 through CPAP, shower chair, Ability to Complete: ADLs and IADLs-sit to stand independent, walking with walker independent, bathing and dressing, Independent, will call landlord about getting some hand bars, no MOW, cooking cleaning and laundry-all independent, laundry can be tough due to lifting Life Planning: Yes: POLST, brother and is HCPOA but cannot find forms. MENTAL STATUS EVALUATION: Orientation: Oriented to person, place and time Appearance: Age-appropriate Eye Contact: Good Behavior: Cooperative Speech: Normal pitch and Normal rate Mood: fair worries about family member, Mood Persistence: Seeing counselor -new for her Affect: Intensity: Normal, Range: Normal, Type: Appropriate Thought Process: Goals directed Thought Content:Within normal limits Attention: poor concentration -not changed, hard to stick with one thing Sleep: Good Interest: Down slightly Guilt/Self-blame: Negative Energy: varies, have more energy later in day Concentration: Difficulty with focus and attention Appetite: Good Psychomotor agitation/retardation: none Sex Drive: [...] the flowsheet rows parameter was overridden by center administrator build. Remove the value in the flowsheet rows parameter or contact an center administrator. The value you specified in the flowsheet rows parameter was overridden by center administrator build. Remove the value in the flowsheet rows parameter or contact an center administrator. The value you specified in the flowsheet rows parameter was overridden by center administrator build. Remove the value in the flowsheet rows parameter or contact an center administrator.. The value you specified in the flowsheet rows parameter was overridden by center administrator build. Remove the value in the flowsheet rows parameter or contact an center administrator. 1. Little interest or pleasure in doing things The value you specified in the flowsheet rows parameter was overridden by center administrator build. Remove the value in the flowsheet rows parameter or contact an center administrator. 2. Feeling down, depressed or hopeless The value you specified in the flowsheet rows parameter was overridden by center administrator build. Remove the value in the flowsheet rows parameter or contact an center administrator. 3. Trouble falling or staying asleep, or sleeping too much The value you specified in the flowsheetrows parameter was overridden by center administrator build. Remove the value in the flowsheet rows parameter or contact an center administrator. 4. Poor appetite or overeating The value you specified in the flowsheet rows parameter was overridden by center administrator build. Remove the value in the flowsheet rows parameter or contact an center administrator. 5. Feeling tired of having little energy The value you specified in the flowsheet rows parameter was overridden by center administrator build. Remove the value in the flowsheet rows parameter or contact an center administrator. 6. Feeling bad about yourself - or that you are a failure, or have let yourself of your family downThe value you specified in the flowsheet rows parameter was overridden by center administrator build. Remove the value in the flowsheet rows parameter or contact an center administrator. 7. Trouble concentrating on things, such as reading the newspaper or watching television The value you specified in the flowsheet rows parameter was overridden by center administrator build. Remove the value in the flowsheet rows parameter or contact an center administrator. 8. Moving or speaking so slowly that other people could have noticed. Or the opposite being so fidgety or restless that you have been moving around a lot more than usual The value you specified in the flowsheet rows parameter was overridden by center administrator build. Remove the value in the flowsheet rows parameter or contact an center administrator. 9. Thoughts that you would be better off , or of hurting yourself The value you specified in the flowsheet rows parameter was overridden by center administrator build. Remove the value in the flowsheet rows parameter or contact an center administrator. 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, NYHA class 1 and CKD stage 3 ([facility]) [I13.0, I50.30, N18.30] 05/14/2019 Lumbar radiculopathy [M54.16] 09/27/2018 Mild episode of recurrent major depressive disorder (HCC) [F33.0] 08/26/2018 Chronic diastolic congestive heart failure (HCC) [I50.32] 06/12/2018 Controlled substance agreement signed [Z79.899] 07/14/2017 Morbid obesity with BMI of 50.0-59.9, adult ([facility]) [E66.01, Z68.43] 06/27/2017 Per Obesity protocol #1 - Per Obesity Taxonomy ICD-10 update of inactive term Gastroesophageal reflux disease with esophagitis [K21.00] 03/04/2017 Restless legs syndrome [G25.81] 03/25/2016 Fibromyalgia [M79.7] 02/02/2016 Abnormality of gait [R26.9] 02/02/2016 Type 2 diabetes mellitus with hemoglobin A1c goal of 7.0%-8.0% ([facility]) [E11.9] 10/14/2014 ICD-10 update of [...] medication as directed?: Yes Barriers to Treatment: Lack of motivation Social Work Goals/Interventions: Behavioral Health needs: Yes, Reinforced Behavioral Health services already In place Drug and Alcohol needs: No needs identified at this time Complex Psychosocial needs: Yes. Plan: STEFANY met with Stephanie for follow up and supportive visit. Completed return assessment. STEFANY also followed up on referral for chore service for Stephanie with goal to clean up apartment so she can keep up with cleaning. STEFANY made referral to [facility] and they have a volunteer couple who are willing to come in and assist Stephanie this weekend. They will come Tuesday for clean up and assistwith putting stools for new table together. Stephanie agreeing-we call Marlena to confirm time and details. Stephanie agreeing. She asks that couple call her when they get to apartment and she will let them in to apartment. Stephanie also has had two psychotherapy sessions with Dr Landry. She expresses that he is easy to talk with and she will continue to see him. She reports she has given him permission to talk with me and me with him. She continues to express feelings of depression and low motivation. She reports pain in back, legs and buttocks. She reports this is from sciatica and back stenosis. She also has knee pain and is pursuing an knee replacement. She reports the pain is limiting her. She does plan to callDr Cousins about a cortisone injection which she has had before and it has been helpful . STEFANY also discussed benefit of activities for distraction. We discussed the use of swimming and [facility] after COVID. She expressed that she would call the [facility] about swimming as she has silver sneakers and this may provide coverage through insurance. We also discussed coping skills r/t providing support and she talked about not watching as much TV news as this causes anxiety and tense feelings. She also likes to read for comfort. Her goals are tohave less pain, be able to be around people without worry (of disease-COVID), to go to a restaurant. STEFANY will return in one month for follow up. Scheduled March 13 2021. Follow Up Appointment: March 13 at 1230/100 pm documented in this encounter Plan of Treatment Upcoming Encounters Date Type Specialty Care Team Description 02/27/2021 Home Visit Family Medicine Magaly Morales, Community Health Section Plotter Operator [address] [place] [address] [phone] 03/05/2021 Office Visit Pharmacy [facility] [address] [place] [address] 03/12/2021 Office Visit Nephrology Erik Lenz MD [address] [place] [address] [phone] 03/13/2021 [place] [facility] Rema Real LSW [address] [place] [address] [address] [phone] 03/17/2021 Home Visit [facility] Vera Capellan RN [address] [place] [address] [address] [phone] 07/20/2021 Office Visit Family Medicine Kevin Whiteside DO [address] [place] [address] [address] [phone] 08/18/2021 Office Visit Celsa Denny CRNP [address] [address] [address] [phone] 10/05/2021 Office Visit Cardiology Rey Woodall MD [address] [place] [address] [address] [phone] Health Maintenance Due Date Last Done Comments Pneumococcal Vaccine: 65+ Years (2 of 2) 2020 08/22/2009, 06/15/2006 DIABETES-URINE MICROALBUMIN EVERY 12 MONTHS 12/23/2020 12/24/2019, 11/30/2019, 05/24/2019, Additional history exists Yearly B-12 01/22/2021 01/23/2020, 02/24, 05/16/2018 DIABETES-EYE EXAM 04/07/2021 04/07/2020, , 02/24/2010 (Done elsewhere), Additional history exists DIABETES-HGBA1C EVERY 6 MONTHS 05/17/2021 11/17/2020, 01/23/2020, 11/07/2019, Additional history exists CKD GFR USE SMARTSET 56777 06/26/202112/25, 11/17/2020, 05/06/2020, Additional history exists BREAST CANCER SCREENING DISCUSSION YEARLY AGES 40-75 10/01/2021 10/01/2020, 07/10/2019, 06/23/2018, Additional history exists CKD PHOS USE SMARTSET 73330 11/17/2021/10/2020, 12/24/2019, 11/07/2019, Additional history exists CKD HGB USE SMARTSET 27765 12/25/202112/25, 12/25/2020, 11/17/2020, Additional history exists DIABETES-FOOT [...] on File Type Date Recorded Patient 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
--- OUTSIDE RECORDS SUMMARY | 2023-06-01 05:06 | External Medical Summary | Summary of Care ---
Author Name Unknown Organization [place] [address] Care Team Providers Care Talent Acquisition Partner Name Role Phone Whiteside Migue Gonzalez DO Primary Care Provider Reason for Visit * Reason Onset Date Comments Medication Refill 02/09/2021 Encounter Details Date Type Department Care Team Description 02/09/2021 Refill [facility] [address] [place] [address] Ricardo Mcghee MD [address] [place] [address] Chronic pain syndrome Allergies Active Allergy Reactions Severity Noted Date Comments Codeine 07/08/2014 hallucination Pollen 05/18/2019 Heparin 09/04/2009 Heparin Induced Thrombocytopenia Hydrocodone Neuro complications (Please comment) 07/28/2020 Empagliflozin Other (Please comment) Medium 05/17/2018 3 yeast infections in 6 weeks after starting Morphine And Related 09/16/1997 Hallucinations Tetanus Toxoid Other (Please comment) 06/15/2011 Passed out documented as of this encounter (statuses as of 02/09/2021) Medications Medication Sig Dispensed Refills Start Date [...] 11 05/06/2020 Active Blood Glucose Monitoring Suppl ([employer] ULTRA 2) w/Device KIT Use to test BG values 1 Kit 0 05/20/2020 Active Glucose Blood (ZentilaTOUCH ULTRA BLUE) STRP Check sugars 3-4 times daily, E11.9 400 Strip 3 05/22/2020 Active TRULICITY 1.5 MG/0.5ML SOPNIndications:DM type 2 nursing care encounter ([facility]),Uncontrolled type 2 diabetes mellitus with stage 3 chronic kidney disease, with long-term current use of insulin ([facility]) inject 1.5mg (one pen) under [...] AT BEDTIME 90 Tab 1 02/06/2021 Active traMADol HCl 50 MG Oral Tablet (Ultram)Indications :Chronic pain syndrome Take 1 Tab by mouth every 8 hours as needed for Pain, Severe. 90 Tab 0 02/09/2021 Active traMADol HCl 50 MG Oral Tablet (Ultram)Indications :Chronic pain syndrome Take 1 Tab by mouth every 8 hours as needed for Pain, Severe. 90 Tab 0 11/10/2020 Discontinue d(Refill) documented as of this encounter (statuses as of 02/09/2021) Active Problems Problem Noted Date Hypotension 12/19/2020 [...] as of this encounter (statuses as of 02/09/2021) Resolved Problems Problem Noted Date Resolved Date [...] Pt has booklet. Other allergic rhinitis 12/31/2003 12/01/20 18 Overview: ICD-10 update of inactive term [...] as of this encounter (statuses as of 02/09/2021) Immunizations Name Administration Dates Next Due COVID-19 [...] Telephone Encounter - Migue Whiteside DO - 02/09/2021 10:09 AM EDT Signed Prescriptions: Disp Refills traMADol HCl 50 MG Oral Tablet (Ultram) 90 Tab 0 Sig: Take 1 Tab by mouth every 8 hours as needed for Pain, Severe. Authorizing Provider: MIGUE WHITESIDE * Telephone Encounter - Frances Ceballos LPN - 02/09/2021 9:07 AM EDT Pending Prescriptions: Disp Refills traMADol HCl 50 MG Oral Tablet (Ultram) 90 Tab 0 Sig: Take 1 Tab by mouth every 8 hours as needed for Pain, Severe. * Telephone Encounter - Frances Ceballos LPN - 02/09/2021 9:07 AM EDT Pending Prescriptions: Disp Refills traMADol HCl 50 MG Oral Tablet (Ultram) 90 Tab 0 Sig: Take 1 Tab by mouth every 8 hours as needed for Pain, Severe. 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) E11.9 Fibromyalgia M79.7 Abnormality of gait R26.9 Restless legs syndrome G25.81 Gastroesophageal reflux disease with esophagitis K21.00 Morbid obesity with BMI of 50.0-59.9, adult ([facility]) E66.01, Z68.43 Controlled substance agreement signed Z79.899 Chronic diastolic congestive heart failure ([facility]) I50.32 Mild episode of recurrent major depressive disorder (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) I13.0, I50.30, N18.30 Hyperparathyroidism, secondary renal ([facility]) N25.81 Vasculitis ([facility]) I77.6 Primary osteoarthritis of left [...] Home Vera Capellan RN [address] [address] [phone] 02/11/2021 Home Visit [facility] Rema Real LSW [address] [place] [address] [phone] 02/27/2021 Home Visit Family Medicine Magaly Morales, Community Health Room Service Manager [address] [place] [address] [phone] 03/05/2021 Office Visit Pharmacy [facility] [place] [address] [place] [address] 03/12/2021 Office Visit Nephrology Erik Lenz MD [address] [facility] [place] [address] [phone] 07/20/2021 Office Visit Family Medicine Migue Whiteside DO [address] [place] [address] 08/18/2021 Office Visit Pulmonary Celsa Tafoya CRNP [address] [place] [address] 10/05/2021 Office Visit Cardiology Rey Woodall MD [address] [place] [address] Health Maintenance Due Date Last Done Comments Pneumococcal Vaccine: 65+ Years (2 of 2) 2020 08/22/2009, 06/15/2006 DIABETES-URINE MICROALBUMIN EVERY 12 MONTHS 12/23/2020 12/24/2019, 11/30/2019, 05/24/2019, Additional history exists Yearly B-12 01/22/2021 01/23/2020, 02/24, 05/16/2018 DIABETES-EYE EXAM 04/07/2021 04/07/2020, , 02/24/2010 (Done elsewhere), Additional history exists DIABETES-HGBA1C EVERY 6 MONTHS 05/17/2021 11/17/2020, 01/23/2020, 11/07/2019, Additional history exists CKD GFR USE SMARTSET 39460 06/26/202112/25, 11/17/2020, 05/06/2020, Additional history exists BREAST CANCER SCREENING DISCUSSION YEARLY AGES 40-75 10/01/2021 10/01/2020, 07/10/2019, 06/23/2018, Additional history exists CKD PHOS USE SMARTSET 93361 11/17/2021 02/10/2020, 12/24/2019, 11/07/2019, Additional history exists CKD HGB USE SMARTSET 70497 12/25/202112/25, 12/25/2020, 11/17/2020, Additional history exists DIABETES-FOOT [...] Documents on File Type Date Recorded Patient Bradley 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
--- OUTSIDE RECORDS SUMMARY | 2023-06-01 05:06 | External Medical Summary | Summary of Care ---
Author Name Unknown Organization [place] [address] Care Team Providers Care Terrazzo Helper Name Role Phone Migue Whiteside DO Primary Care Provider Reason for Visit * Reason Comments eRx-Medication Refill Encounter Details Date Type Department Care Team Description 02/06/[address] [facility] [address] [place] [...] as of this encounter (statuses as of 02/06/2021) Medications Medication Sig Dispensed Refills Start Date [...] mouth daily. 90 Cap 3 0 Active potassium chloride ER 10 MEQ TBCR Take one 3 days per week 30 Tab 3 0 Active Additional Information Patient taking differently: 10 mEq Oral DAILY, (No instructions reported), Reported on 12/09/2020 DIURETIC TITRATION PLANIndications:Chr onic diastolic congestive heart failure (HCC) If no improvement on day 3, contact heart failure managing provider. 1 Each 0 0 Active dicyclomine (BENTYL) 20 MG Tablet Take 1 Tab by mouth 4 times a day as needed for Pain, Mild. For abdominal pain 120 Tab 11 0 Active Blood Glucose Monitoring Suppl ([facility] ULTRA 2) w/Device KIT Use to test BG values 1 Kit 0 0 Active Glucose Blood (ONETOUCH ULTRA BLUE) STRP Check sugars 3-4 times daily, E11.9 400 Strip 3 0 Active TRULICITY 1.5 MG/0.5ML SOPNIndications:DM type 2 nursing care encounter (HCC),Uncontrolled type 2 diabetes mellitus with stage 3 chronic kidney disease, with long-term current use of insulin (HCC) inject 1.5mg (one pen) under the skin once weekly 6 mL 1 0 Active colchicine 0.6 MG TabletIndications:L eukocytoclastic vasculitis (HCC) Take 1/2 tab daily 45 Tab 1 0 Active clobetasol propionate (TEMOVATE) 0.05 [...] mouth daily. 1 Tab 0 0 Active Cyclobenzaprine HCl 10 MG Oral Tablet (FLEXERIL)Indicatio ns:Spinal stenosis of lumbar region without neurogenic claudication,Lumbar radiculopathy TAKE ONE TABLET BY MOUTH AT BEDTIME NEEDED FOR SPASM 30 Tab 0 0 Active Levothyroxine Sodium 200 MCG Oral Tablet (LEVOXYL)Indication s:Postsurgical hypothyroidism TAKE ONE TABLET BY MOUTH IN THE MORNING AT LEAST 30 MINUTES PRIOR TO BREAKFAST OR OTHER MEDS 90 Tab 1 0 Active Nortriptyline HCl 50 MG Oral Capsule (PAMELOR)Indication s:Fibromyalgia TAKE ONE CAPSULE BY MOUTH AT BEDTIME 90 Cap 1 0 Active Additional Information Patient taking differently: 50 [...] mg daily. 90 Cap 3 1 Active Gabapentin 300 MG Oral Capsule (Neurontin)Indicati ons:Type 2 diabetes mellitus with hemoglobin A1c goal of 7.0%-8.0% ([facility]) Take 1 Cap by mouth 3 times a day. 270 Cap 0 1 Active traMADol HCl 50 MG Oral Tablet (Ultram)Indications :Chronic pain syndrome Take 1 Tab by mouth every 8 hours as needed for Pain, Severe. 90 Tab 0 1 Active rOPINIRole HCl 2 MG Oral [...] AT BEDTIME 90 Tab 1 1 Active traZODone (DESYREL) 50 MG Tablet Take 1 Tab by mouth at bedtime. 90 Tab 3 0 02/07/20 21 Discontinued documented as of this encounter (statuses as of 02/06/2021) Active Problems Problem Noted Date Hypotension 12/19/2020 [...] as of this encounter (statuses as of 02/06/2021) Resolved Problems Problem Noted Date Resolved Date [...] as of this encounter (statuses as of 02/06/2021) Immunizations Name Administration Dates Next Due COVID-19 mRNA, LNP-s, No Pre serve, 2-Dose Series ([employer]) 12/29/2020,12/18/2020 Pneumococcal Polysaccharide PPV23 (Pneumovax) 08/22/2009,06/15/2006 Seasonal [...] Notes * Telephone Encounter - Enrico [place] RP - 02/06/2021 12:44 PM EDT Signed Prescriptions: Disp Refills traZODone HCl 50 MG Oral Tablet (Desyrel) 90 Tab 1 Sig: TAKE ONETABLET BY MOUTH AT BEDTIME Authorizing Provider: MIGUE WHITESIED User: ENRICO [place]- * Telephone Encounter - Enrico [place] [facility] - 02/06/2021 12:43 PM EDT Pending Prescriptions: Disp Refills traZODone HCl 50 MG Oral Tablet (Desyrel)*90 Tab 0 Sig: TAKE ONE TABLET BY MOUTH AT BEDTIME Last Office/Telemedicine Visit: 01/14/2021 Next Office Visit: 07/20/2021 Scheduled Provider(s): Migue Whiteside, DO If no future appointments scheduled, and last appointment is greater than a year ago, please schedule patient for a follow-up appointment Last date the medication was ordered: Pharmacy: [id number] Is this request for a controlled [...] 02/10/2021 Home Visit [facility] Vera Capellan, RN [address] [place] [address] [phone] 02/11/2021 Home Visit [facility] Rema Real LSW [address] [place] [address] [phone] 02/27/2021 Home Visit Family Medicine Magaly Morales, Community Health Blanket Cutter Hand [address] [place] [address] [phone] 03/05/2021 Office Visit Pharmacy [facility] [place] [address] [place] [address] 03/18/2021 Office Visit Nephrology Erik Lenz MD [address] [facility] [place] [address] [phone] 07/20/2021 Office Visit Family Medicine Migue Whiteside DO [address] [place] [address] [phone] 08/18/2021 Office Visit Pulmonary Celsa Tafoya CRNP [address] [place] [address] [phone] 10/05/2021 Office Visit Cardiology Rey Woodall MD [address] [place] [id number] Health Maintenance Due Date Last Done Comments Pneumococcal Vaccine: 65+ Years (2 of 2) 2020 08/22/2009, 06/15/2006 DIABETES-URINE MICROALBUMIN EVERY 12 MONTHS 12/23/2020 12/24/2019, 11/30/2019, 05/24/2019, Additional history exists Yearly B-12 01/22/2021 01/23/2020, 02/24, 05/16/2018 DIABETES-EYE EXAM 04/07/2021 04/07/2020, , 02/24/2010 (Done elsewhere), Additional history exists DIABETES-HGBA1C EVERY 6 MONTHS 05/17/2021 11/17/2020, 01/23/2020, 11/07/2019, Additional history exists CKD GFR USE SMARTSET 91386 06/26/202112/25, 11/17/2020, 05/06/2020, Additional history exists BREAST CANCER SCREENING DISCUSSION YEARLY AGES 40-75 10/01/2021 10/01/2020, 07/10/2019, 06/23/2018, Additional history exists CKD PHOS USE SMARTSET 63466 11/17/202110/28, 12/24/2019, 11/07/2019, Additional history exists CKD HGB USE SMARTSET 89132 12/25/202112/25, 12/25/2020, 11/17/2020, Additional history exists DIABETES-FOOT [...] on File Type Date Recorded Patient Financial Retirement Plan Specialist Expl 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
--- OUTSIDE RECORDS SUMMARY | 2023-06-01 05:06 | External Medical Summary | Summary of Care ---
Author Name Unknown Organization [facility] Address [facility] [place] [address] Care Team Providers Care Interlibrary Loan Specialist Name Role Phone WhitesideKevinmelinda Primary Care Provider Reason for Visit * Reason Onset Date Comments Medication Refill 02/09/2021 Encounter Details Date Type Department Care Team Description 02/09/2021 Refill Cardiology, [facility] [address] [place] [address] Rey Miles MD [address] [facility] [place] [address] Allergies Active Allergy Reactions [...] 11 05/06/2020 Active Blood Glucose Monitoring Suppl ([employer] ULTRA 2) w/Device KIT Use to test BG values 1 Kit 0 05/20/2020 Active Glucose Blood ([employer] ULTRA BLUE) STRP Check sugars 3-4 times daily, E11.9 400 Strip 3 05/22/2020 Active TRULICITY 1.5 MG/0.5ML SOPNIndications:DM type 2 nursing care encounter ([facility]),Uncontrolled type 2 diabetes mellitus with stage 3 chronic kidney disease, with long-term current use of insulin ([facility]) inject 1.5mg (one pen) under the skin [...] per week 30 Tab 3 02/09/2021 Active potassium chloride ER 10 MEQ TBCR Take one 3 days per week 30 Tab 3 02/26/2020 1 Discontinue d(Refill) documented as of this [...] encounter Miscellaneous Notes * Telephone Encounter - Rey Miles MD - 02/09/2021 9:37 AM EDT Signed Prescriptions: Disp Refills Potassium Chloride Ayleen ER 10 MEQ Oral Tab*30 Tab 3 Sig: Take one 3 days per week Authorizing Provider: REY MILES * Telephone Encounter - Surendra Caldera RN - 02/09/2021 9:23 AM EDT Pending Prescriptions: Disp Refills Potassium Chloride Ayleen ER 10 MEQ Oral Ta*30 Tab 3 Sig: Take one 3 days per week * Telephone Encounter - Surendra Caldera RN - 02/09/2021 9:23 AM EDT Pending Prescriptions: Disp Refills Potassium Chloride Ayleen ER 10 MEQ Oral Ta*30 Tab 3 Sig: Take one 3 days per week Last Office/Telemedicine Visit: 02/02/2021 Next Office Visit: 10/05/2021 Scheduled Provider(s): Rey Miles MD Last medication order date: 02/26/2020 Have you choosen a preferred pharm?? yes Patient Active Problem List Diagnosis Code Dyslipidemia E78.5 ELLIE (generalized anxiety disorder) F41.1 Postsurgical hypothyroidism E89.0 ELISSA (obstructive sleep apnea) G47.33 Venous insufficiency I87.2 HTN, goal below 130/80 I10 History of pulmonary embolus (PE) Z86.711 Statin intolerance Z78.9 [place] filter in place Z95.828 Type 2 diabetes mellitus with hemoglobin A1c goal of 7.0%-8.0% ([facility]) E11.9 Fibromyalgia M79.7 Abnormality of gait R26.9 Restless legs syndrome G25.81 Gastroesophageal reflux disease with esophagitis K21.00 Morbid obesity with BMI of 50.0-59.9, adult ([facility]) E66.01, Z68.43 Controlled substance agreement signed Z79.899 Chronic diastolic congestive heart failure ([facility]) I50.32 Mild episode of recurrent major depressive disorder ([facility]) F33.0 Lumbar radiculopathy M54.16 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, NYHA class 1 and CKD stage 3 ([facility]) I13.0, I50.30, N18.30 Hyperparathyroidism, 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 [address] [phone] 07/20/2021 Office Visit Family Medicine Kevin Whiteside DO [address] [address] [phone] 08/18/2021 Office Visit Pulmonary Celsa Tafoya CRNP [address] [place] [address] 10/05/2021 Office Visit Cardiology Rey Miles MD [address] [place] [address] Health [...] Additional history exists CKD GFR USE SMARTSET 45110 06/26/202112/25, 11/17/2020, 05/06/2020, Additional history exists BREAST CANCER SCREENING DISCUSSION YEARLY AGES 40-75 10/01/2021 10/01/2020, 07/10/2019, 06/23/2018, Additional history exists CKD PHOS USE SMARTSET 82758 11/17/2021 0210/2020, 12/24/2019, 11/07/2019, Additional history exists CKD HGB USE SMARTSET 69547 12/25/202112/25, 12/25/2020, 11/17/2020, Additional history exists DIABETES-FOOT [...] Documents on File Type Date Recorded Patient Social Science Professor Expl 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
--- OUTSIDE RECORDS SUMMARY | 2023-06-01 05:06 | External Medical Summary | Summary of Care ---
Author Name Unknown Organization [place] [address] Care Team Providers Care Senior Sales Operations Analyst Name Role Phone Migue Whiteside DO Primary Care Provider Reason for Visit * Reason Onset Date Comments Medication Refill 02/16/2021 Encounter Details Date Type Department Care Team Description 02/16/2021 Refill [facility] [address] [place] [address] Rema Gibbons PA-C [address] [employer] [address] [place] [address] Allergies Active Allergy Reactions [...] 0 04/08/2020 Active Blood Glucose Monitoring Suppl ([employer] ULTRA 2) w/Device KIT Use to test BG values 1 Kit 0 05/20/2020 Active Glucose Blood (ONETOUCH ULTRA BLUE) STRP Check sugars 3-4 times daily, E11.9 400 Strip 3 05/22/2020 Active TRULICITY 1.5 MG/0.5ML SOPNIndications:DM type 2 nursing care encounter ([facility]),Uncontrolled type 2 diabetes mellitus with stage 3 chronic kidney disease, with long-term current use of insulin ([facility]) inject 1.5mg (one pen) under the [...] 120 Tab 11 05/06/2020 1 Discontinue d(Refill) Nortriptyline HCl 50 MG [...] 12:58 PM EDT Signed Prescriptions: Disp Refills Dicyclomine HCl 20 MG Oral Tablet (Bentyl) 120 Tab11 Sig: Take 1 Tab by mouth 4 times a day as needed for Pain, Mild. For abdominal pain Authorizing Provider: MIGUE WHITESIDE * Telephone Encounter - Regina Gee LPN - 02/17/2021 8:36 AM EDT Pending Prescriptions: Disp Refills Dicyclomine HCl 20 MG Oral Tablet (Bentyl) 120 Tab11 Sig: Take 1 Tab by mouth 4 times a day as needed for Pain, Mild. For abdominal pain * Telephone Encounter - Ro Adair LPN - 02/17/2021 8:22 AM EDT Pending Prescriptions: Disp Refills Dicyclomine HCl 20 MG Oral Tablet (Bentyl)120 Tab11 Sig: Take 1 Tab by mouth 4 times a day as needed for Pain, Mild. For abdominal pain documented in this encounter Plan of Treatment Upcoming Encounters Date Type Specialty Care Team Description 02/27/2021 Home Visit Family Medicine Magaly Morales, Community Health Data Entry Processor [address] [place], [place] [id number] 03/05/2021 Office Visit [facility]acy [facility] [place] [address] [address] 03/12/2021 Office Visit Nephrology Erik Lenz MD [address] [place] [address] [phone] 03/13/2021 Senior Staff Consultant [facility] Rema Real LSW [address] [address] [phone] 03/17/2021 Home Visit [facility] Vera Capellan, LEXI [address] [address] [phone] 07/20/2021 Office Visit Family Medicine Migue Whiteside DO [address] [address] [phone] 08/18/2021 Office Visit Celsa Denny CRNP [address] [address] [phone] 10/05/2021 Office Visit Cardiology Rey Woodall MD [address] [address] [phone] Health Maintenance Due Date Last Done Comments Pneumococcal Vaccine: 65+ Years (2 of 2) 2020 08/22/2009, 06/15/2006 DIABETES-URINE MICROALBUMIN EVERY 12 MONTHS 12/23/2020 12/24/2019, 11/30/2019, 05/24/2019, Additional history exists Yearly B-12 01/22/2021 01/23/2020, 02/24, 05/16/2018 DIABETES-EYE EXAM 04/07/2021 04/07/2020, , 02/24/2010 (Done elsewhere), Additional history exists DIABETES-HGBA1C EVERY 6 MONTHS 05/17/2021 11/17/2020, 01/23/2020, 11/07/2019, Additional history exists CKD GFR USE SMARTSET 60479 06/26/202112/25, 11/17/2020, 05/06/2020, Additional history exists BREAST CANCER SCREENING DISCUSSION YEARLY AGES 40-75 10/01/2021 10/01/2020, 07/10/2019, 06/23/2018, Additional history exists CKD PHOS USE SMARTSET 94728 11/17/2021 02/10/2020, 12/24/2019, 11/07/2019, Additional history exists CKD HGB USE SMARTSET 84243 12/25/202112/25, 12/25/2020, 11/17/2020, Additional history exists DIABETES-FOOT [...] Documents on File Type Date Recorded Patient Car Sales Associate Expl 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
--- OUTSIDE RECORDS SUMMARY | 2023-06-01 05:07 | External Medical Summary | Summary of Care ---
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 1 Each 0 04/08/2020 Active dicyclomine (BENTYL) 20 MG Tablet Take 1 Tab by mouth 4 times a day as needed for Pain, Mild. For abdominal pain 120 Tab 11 05/06/2020 Active Blood Glucose Monitoring Suppl (ONETOUCH ULTRA 2) w/Device KIT Use to test BG values 1 Kit 0 05/20/2020 Active Glucose Blood (ONETOUCH ULTRA BLUE) STRP Check sugars 3-4 times daily, E11.9 400 Strip 3 05/22/2020 Active TRULICITY 1.5 MG/0.5ML SOPNIndications:DM type 2 nursing care encounter ([facility]),Uncontrolled type 2 diabetes mellitus with stage 3 chronic kidney disease, with long-term current use of insulin ([facility]) inject 1.5mg (one pen) under the skin once weekly 6 mL 1 05/27/2020 Active colchicine 0.6 MG TabletIndications:Le ukocytoclastic vasculitis (HCC) Take 1/2 tab daily 45 Tab 1 06/03/2020 Active clobetasol propionate (TEMOVATE) 0.05 % creamIndications:Lic hen planus Apply to rash on the hands and dorsal feet twice daily x 1 week, then as needed for flares. 30 g 1 06/03/2020 Active BD Pen Needle Short U/F 31G X 8 MM (Insulin Pen Needle) Use 5 times daily with insulin 200 Each 11 06/27/2020 Active NovoLOG FlexPen 100 UNIT/ML Subcutaneous Solution Pen-injector (insulin aspart)Indications:T ype 2 diabetes mellitus with hemoglobin A1c goal of 7.0%-8.0% ([facility]) Inject up to 30 units with meals plus sliding scale as directed by diabetes clinic 81 mL 3 07/01/2020 Active Magnesium Oxide 400 (241.3 Mg) MG Oral TabletIndications:Hy pomagnesemia Take 400 mg by mouth daily. 90 Tab 0 07/24/2020 Active Vitamin D 25 MCG (1000 UT) Oral Tablet Take 1 Tab by mouth daily. 1 Tab 0 07/24/2020 Active Cyclobenzaprine HCl 10 MG Oral Tablet (FLEXERIL)Indication s:Spinal stenosis of lumbar region without neurogenic claudication,Lumbar radiculopathy TAKE ONE TABLET BY MOUTH AT BEDTIME NEEDED FOR SPASM 30 Tab 0 09/04/2020 Active Levothyroxine Sodium 200 MCG Oral Tablet (LEVOXYL)Indications :Postsurgical hypothyroidism TAKE ONE TABLET BY MOUTH IN THE MORNING AT LEAST 30 MINUTES PRIOR TO BREAKFAST OR OTHER MEDS 90 Tab 1 09/20/2020 Active Nortriptyline HCl 50 MG Oral Capsule (PAMELOR)Indications :Fibromyalgia TAKE ONE CAPSULE BY MOUTH AT [...] 10/02/2020 Active Gabapentin 300 MG Oral Capsule (Neurontin)Indicatio ns:Type 2 diabetes mellitus with hemoglobin A1c goal of 7.0%-8.0% ([facility]) Take 1 Cap by mouth 3 times [...] 12/29/2020 Active clonazePAM 0.5 MG Oral Tablet (KlonoPIN)Indication s:Anxiety state Take 1 Tab by mouth 2 times a day. 60 Tab 0 12/29/2020 Active Levothyroxine Sodium 50 MCG Oral Tablet (Levoxyl)Indications :Hyperparathyroidism , secondary renal (HCC) Take 1 Tab by mouth daily. (at least 30 min prior to breakfast or other meds) 30 Tab 11 01/14/2021 Active documented as of this encounter (statuses [...] 10/14/2014 Overview: ICD-10 update of inactive term Sycam[place] filter in place 08/19/2014 History of pulmonary [...] Sign Reading Time Taken Comments Blood Pressure 112/74 02/02/2021 8:29 AM EDT Pulse 96 02/02/2021 8:29 AM EDT regul ar Temperature 36.6 C (97.8 F) 02/02/2021 8:29 AM ED T Respiratory Rate 22 02/02/2021 8:29 AM EDT Oxygen Saturation 92% 02/02/2021 8:29 AM EDT Inhaled Oxygen Concentration - - Weight 150.6 kg (332 lb) 02/02/2021 8:29 AM EDT Height - - Body Mass Index 56.99 12/29/2020 9:29 AM EDT documented in this encounter Progress Notes * Rey Woodall MD - 02/02/2021 8:27 AM EDT February 02, 2021 Cardiology Follow Up Referring Provider: PCP: MIGUE WHITESIDE [address] [place], [place] [address] [address] [phone] Chief Complaint: Orthostasis SUBJECTIVE: Stephanie Camp is a 65 year old year old female ongoing issue 1.Morbid obesity. 2.Obstructive sleep apnea on CPAP supplementation with nocturnal hypoxia on oxygen administration. 3.Hypertension. 4.Type 2 diabetes mellitus. 5.Chronic fibromyalgia. 6.History of bilateral pneumonia with extensive hospitalization in 2008 requiring extended intubation, [place] filter implantation with pulmonary embolus. 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 8. Chronic diastolic heart failure multiple factorial etiology 9. Chronic renal insufficiency Patient presents now in routine followup. She notes no specific cardiac complaints only difficulties with depression, fatigue general listlessness. No fevers chills or unexplained infections. No bleeding difficulties. Weight recently trending downward rate 10 lb. Medications reduced due to low blood pressures. Still taking furosemide 20 mgtwice per day which aids and peripheral edema. Patient has received COVID vaccinations A Complete Review of 10 Systems is as stated above or negative. Patient Active Problem List Diagnosis Code Dyslipidemia E78.5 ELLIE (generalized anxiety disorder) F41.1 Postsurgical hypothyroidism E89.0 ELISSA (obstructive sleep apnea) G47.33 Venous insufficiency I87.2 HTN, goal below 130/80 I10 History of pulmonary embolus (PE) Z86.711 Statin intolerance Z78.[address] Z95.828 Type 2 diabetes mellitus with hemoglobin A1c goal of 7.0%-8.0% ([facility]) E11.9 Fibromyalgia M79.7 Abnormality of gait R26.9 Restless legs syndrome G25.81 Gastroesophageal reflux disease with esophagitis K21.00 Morbid obesity with BMI of 50.0-59.9, adult ([facility]) E66.01, Z68.43 Controlled substance agreement signed Z79.899 Chronic diastolic congestive heart failure ([facility]) I50.32 Mild episode of recurrent major depressive disorder ([facility]) F33.0 Lumbar radiculopathy M54.16 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 (at least 30 min prior to breakfast or other meds) 30 Tab 11 clonazePAM 0.5 MG Oral Tablet (KlonoPIN) Take 1 Tab by mouth 2 times a day. 60 Tab 0 Meclizine HCl 12.5 MG Oral Tablet [...] under the skin daily. 45 mL 3 rOPINIRole HCl 2 MG Oral Tablet (Requip) Take 1 Tab by mouth at bedtime. 90 Tab 3 Gabapentin 300 MG Oral Capsule (Neurontin) Take 1 Cap by mouth 3 times a day. 270 Cap 0 traMADol HCl 50 MG Oral Tablet (Ultram) Take 1 Tab by mouth every 8 hours as needed for Pain, Severe. 90 Tab 0 DULoxetine HCl 30 MG Oral Capsule Delayed Release Particles (CYMBALTA) TAKE ONE CAPSULE BY MOUTH DAILY. take with 60mg capsule for total of 90mg 90 Cap 1 DULoxetine HCl 60 MG Oral Capsule Delayed Release Particles (CYMBALTA) Take 1 Cap by mouth daily. Along with 30 mg capsule to total 90 mg daily. 90 Cap 3 Nortriptyline HCl 50 MG Oral Capsule (PAMELOR) TAKE ONE CAPSULE BY MOUTH AT BEDTIME (Patient taking differently: Take 50 mg by mouth at bedtime.) 90 Cap 1 Levothyroxine Sodium 200 MCG Oral Tablet (LEVOXYL) TAKE ONE TABLET BY MOUTH IN THE MORNING AT LEAST 30 MINUTES PRIOR TO BREAKFAST OR OTHER MEDS 90 Tab 1 Cyclobenzaprine HCl 10 MG Oral Tablet (FLEXERIL) TAKE ONE TABLET BY MOUTH AT BEDTIME NEEDED FOR SPASM 30 Tab 0 Magnesium Oxide 400 (241.3 Mg) MG Oral Tablet Take 400 mg by mouth daily. 90 Tab 0 Vitamin D 25 MCG (1000 UT) Oral Tablet Take 1 Tab by mouth daily. 1 Tab 0 NovoLOG FlexPen 100 UNIT/ML Subcutaneous Solution Pen-injector (insulin aspart) Inject up to 30units with meals plus sliding scale as directed by diabetes clinic 81 mL 3 clobetasol propionate (TEMOVATE) 0.05 % cream Apply to rash on the hands and dorsal feet twice daily x 1 week, then as needed for flares. 30 g 1 colchicine 0.6 MG Tablet Take 1/2 tab daily 45 Tab 1 TRULICITY 1.5 MG/0.5ML SOPN inject 1.5mg (one pen) under the skin once weekly 6 mL 1 dicyclomine (BENTYL) 20 MG Tablet Take 1 Tab by mouth 4 times a day as needed for Pain, Mild. For abdominal pain 120 Tab 11 potassium chloride ER 10 MEQ TBCR Take one 3 days per week (Patient taking differently: Take 10mEq by mouth daily.) 30 Tab 3 omeprazole (PRILOSEC) 20 MG CPDR Take 1 Cap by mouth daily. 90 Cap 3 oxygen GAS 2 LPM bled through CPAP 11 cwp during all periods of sleep and 2 LPM via NC with exertion. docusate sodium (STOOL SOFTENER) 100 MG Capsule Take 100 mg by mouth 2 times a day as needed for Constipation. Acetaminophen 500 MG Oral Tablet (Acetaminophen Extra Strength) Take 500 mg by mouth every 6 hours as needed. Lidocaine 5 % External Patch (Lidoderm) Place 1 Patch topically on the skin daily. BD Pen Needle Short U/F 31G [...] times daily as directed 400 Each 3 traZODone (DESYREL) 50 MG Tablet Take 1 Tab by mouth at bedtime. (Patient not taking: Reported on 02/02/2021) 90 Tab 3 ONETOUCH DELICA LANCETS 33G MISC Check blood sugars 3-4 times daily 180 Each 5 OBJECTIVE/PHYSICAL EXAMINATION: BP 112/74 (BP Site: Right Arm, BP Position: Sitting, BP Cuff Size: Large) | Pulse 96 Comment: regular | Temp 36.6 C (97.8 F) (Tympanic) | Resp 22 | Wt (!) 150.6 kg (332 lb) | LMP 03/11/2003 | SpO2 92% | BMI 56.99 kg/m | BSA 2.61 m General: no acute distress and stated [...] no joint inflammation, no deforming arthritis Extremities: 1-2+ edema no cyanosis, pulses intact 2+/4 Neuro: grossly normal exam Data: EKG February 02, 2021, personally reviewed Normal sinus rhythm with normal tracing rate 96 beats per minute low-voltage QRS consistent with body habitus ASSESSMENT: 63 year old year old female With morbid obesity Pickwickian syndrome chronic diastolic heart failure with Currently compensated with only minimal lower extremity edema, responsive to furosemide. Prior increases in diuretics resulted in symptomatic hypotension. PLAN: Continue current medical regimen. May take an additional furosemide 20 mg 2 to 3 days per week as needed for worsening edema. No signs of volume over loaded on physical examination. Chronic stasis edema in the setting of indwelling Frank filter, morbid obesity present Encouraged ongoing weight loss Emphasized need for such use of CPAP faithfully. Patient has lab work pending in the future. Would recommend initiation of statin therapy given diabetes. DISPOSITION: Return 6 months Rey Woodall MD [facility] Cardiology, [address] [address] documented in this encounter Nursing Notes * Surendra Caldera RN - 02/02/2021 8:26 AM EDT Examination Room: room 15 Name: Stephanie Camp Date of : (1955). Reason for Visit: for follow up Interim Hospitalization(s): yes november 2020 for syncope and fracuted left arm Problems/Concerns: just not feeling well Chest Pain/SOB: denies [facility] you [facility] [...] Home Vera Capellan RN [address] [place] [address] [phone] 02/11/2021 [facility] Visit [facility] Rema Real LSW [address] [place] [address] [phone] 02/27/2021 Home Visit Family Medicine Magaly Morales, Community Health Steward/Stewardess Night [address] [place] [address] [phone] 03/05/2021 Office Visit Pharmacy [facility] [place] [address] [place] [address] 03/18/2021 Office Visit Nephrology Erik Lenz MD [address] [facility], [place] [address] [phone] 07/20/2021 Office Visit Family Medicine Migue Whiteside DO [address] [place] [address] [phone] 08/18/2021 Office Visit Pulmonary Celsa Tafoya CRNP [address] [place] [address] [phone] 10/05/2021 Office Visit Cardiology Rey Woodall MD [address] [place] [address] [phone] Scheduled Orders Name Type Priority Associated Diagnoses Orde r Schedule EKG EKG Routine 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, NYHA class 1 and CKD stage 3 (HCC) Chronic diastolic congestive heart failure (HCC) HTN, goal below 130/80 ELISSA (obstructive sleep apnea) Ordered: 02/02/2021 Health Maintenance Due Date Last Done Comments Pneumococcal Vaccine: 65+ Years (2 of 2) 2020 08/22/2009, 06/15/2006 DIABETES-URINE MICROALBUMIN EVERY 12 MONTHS 12/23/2020 12/24/2019, 11/30/2019, 05/24/2019, Additional history exists Yearly B-12 01/22/2021 01/23/2020, 02/24, 05/16/2018 DIABETES-EYE EXAM 04/07/2021 04/07/2020, , 02/24/2010 (Done elsewhere), Additional history exists DIABETES-HGBA1C EVERY 6 MONTHS 05/17/2021 11/17/2020, 01/23/2020, 11/07/2019, Additional history exists CKD GFR USE SMARTSET 40845 06/26/202112/25, 11/17/2020, 05/06/2020, Additional history exists BREAST CANCER SCREENING DISCUSSION YEARLY AGES 40-75 10/01/2021 10/01/2020, 07/10/2019, 06/23/2018, Additional history exists CKD PHOS USE SMARTSET 99124 11/17/202110/28, 12/24/2019, 11/07/2019, Additional history exists CKD HGB USE SMARTSET 24356 12/25/202112/25, 12/25/2020, 11/17/2020, Additional history exists DIABETES-FOOT [...] HTN, goal below 130/80 Unspecified essential hypertension ELISSA (obstructive sleep apnea) Obstructive sleep apnea (adult) (pediatric) documented in this encounter Advance Directives Documents on File Type Date Recorded Patient [facility] Director Expl 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
--- OUTSIDE RECORDS SUMMARY | 2023-06-01 05:07 | External Medical Summary | Summary of Care ---
Author Name Unknown Organization [facility] [place] [address] Care Team Providers Care Face And Fill Packer Name Role Phone Kevin Whiteside DO Primary Care Provider Reason for Visit * Reason Comments [facility]: Maintenance Encounter Details Date Type Department Care Team Description 01/19/2021 [facility] Visit [facility], [facility] [address] [facility] [place] [address] Vera Capellan RN [facility] [place] [address] [phone] Benign hypertensive heart and kidney disease with [...] as of this encounter (statuses as of 01/19/2021) Medications Medication Sig Dispensed Refills Start Date [...] at bedtime. 90 Tab 3 12/18/2019 Active omeprazole (PRILOSEC) 20 MG CPDR Take 1 Cap by mouth daily. 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 1 Each 0 04/08/2020 Active dicyclomine (BENTYL) 20 MG Tablet Take 1 Tab by mouth 4 times a day as needed for Pain, Mild. For abdominal pain 120 Tab 11 05/06/2020 Active Blood Glucose Monitoring Suppl (FanzyTOUCH ULTRA 2) w/Device KIT Use to test BG values 1 Kit 0 05/20/2020 Active Glucose Blood (ONETOUCH ULTRA BLUE) STRP Check sugars 3-4 times daily, E11.9 400 Strip 3 05/22/2020 Active TRULICITY 1.5 MG/0.5ML SOPNIndications:DM type 2 nursing care encounter ([facility]),Uncontrolled type 2 diabetes mellitus with stage 3 chronic kidney disease, with long-term current use of insulin ([facility]) inject 1.5mg (one pen) under [...] 7.0%-8.0% ([facility]) Inject up to 30 units with [...] of 7.0%-8.0% ([facility]) Take 1 Cap by mouth 3 [...] as of this encounter (statuses as of 01/19/2021) Active Problems Problem Noted Date Hypotension 12/19/2020 [...] 10/14/2014 Overview: ICD-10 update of inactive term [place] filter in place 08/19/2014 History of pulmonary embolus (PE) 2013 Statin intolerance 07/16/2014 HTN, goal below 130/80 02/22/2014 Venous insufficiency 02/07/2013 ELISSA (obstructive sleep apnea) 09/16/2011 Overview: CPAP 11 cwp Mild, AHI 11.3 but with significant nocturnal hypoxemia Dicks Postsurgical hypothyroidism 06/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 documented as of this encounter (statuses as of 01/19/2021) Resolved Problems Problem Noted Date Resolved Date [...] as of this encounter (statuses as of 01/19/2021) Immunizations Name Administration Dates Next Due COVID-19 [...] Reading Time Taken Comments Blood Pressure 108/62 01/19/2021 11:47 AM EDT Pulse 83 01/19/2021 11:47 AM EDT Temperature 36.3 C (97.3 F) 01/19/2021 11:47 AM E DT Respiratory Rate 18 01/19/2021 11:47 AM EDT Oxygen Saturation 94% 01/19/2021 11:47 AM EDT Inhaled Oxygen Concentration - - Weight - - Height - - Body Mass Index - - documented in this encounter Progress Notes * Vera Capellan RN - 01/19/2021 10:43 AM EDT [facility] Production Welding Supervisor Visit Date: 01/19/2021 Time: 11:44 AM Name: Stephanie Camp : 1955 Current Concerns: Pt seen for return RNCM visit Patient is starting out patient PT for elbow today Had appt with MTM last week and SS was increased d/t continuously high BSG's. Novolog also increased to 40 units with meals. - next appt with them is 02/02 Pt reports bsg's have been ranging 96 -188 the past few days. No extreme highs or lows. Had PCP appt last week - f/u in 6 months Had diabetic foot exam completed at appt Taking Meclizine and Zofran for dizzy spells and nausea States dizziness has improved with medication. Denies nausea today, states she sometimes gets nauseated with dizzy spells. Physical Exam: BP 108/62 | Pulse 83 | Temp 36.3 C (97.3 F) | Resp 18 | LMP 03/11/2003 | SpO2 94% Pain 5- left elbow with movement - 0 with rest Physical Exam Constitutional: General: She is not in acute distress. Appearance: She is obese. HENT: Nose: Nose normal. Cardiovascular: Rate and Rhythm: Normal rate and regular rhythm. Pulses: Normal pulses. Heart sounds: Normal heart sounds. Pulmonary: Effort: Pulmonary effort is normal. Breath sounds: Normal breath sounds. Musculoskeletal: Right lower leg: Edema (trace) present. [...] pain. Skin: Negative. Neurological: Positive for dizziness ("spells"). Psychiatric/Behavioral: Negative. Medication Reconciliation: (See medication list) Does patient take medications as ordered: Yes Patient Well Being: PHQ2/9: No questionnaires available. No change in living situation. Denies falls Depression is "about the same" - reports moods are up and down. SW working with patient and she is interested in seeing a counselor. Advanced Care Planning: POLST. Patient's Goals of [...] and Purspose. Treatment/Plan: Continue all medications as ordered/reviewed Ambulate with roller walker at ALL times o2 2lncqhs and day prn cpap with 2l qhs Apap, tramadol and topical pain relievers for pain Can also take flexeril prn back pain No NSAIDS Low na, ccd diet, 1.5L fluid restriction Ck bsgs and record tid- followed by [facility] clinic Wear b/l le support hose-on day/off night Zaroxolyn prn for fluid overload-take only as advised SW assisting to get more help in the home Change position slowly Meclizine prn for vertigo Zofran prn nausea Starting out patient PT for elbow today Home Interventions Provided: Home Intervention: Other; Evaluation Reinforced current Plan of Care, including self-management and medication regimen Patient's 'Red Flags': 1. Increased SOB 2. Increased edema 3. Worsening pain Patient Needs to Remember: Call [facility] at with any new or [...] & schedule home visit with care steam plant records clerk(s)as indicated. Provider is in agreement with Plan of Care: Yes Scheduled to follow up with patient in 3 weeks with LES and 3 weeks after with CORI. Vera Capellan RN 01/19/2021 11:44 AM documented in this encounter Plan of Treatment Upcoming Encounters Date Type Specialty Care Team Description 02/02/2021 Office Visit Pharmacy [facility] Jeramie [address] [place] [address] 02/02/2021 Office Visit Cardiology Rey Woodall MD [address] [place] [address] [phone] 02/10/2021 [facility] Visit [facility] Vera Capellan RN [address] [place] [address] [phone] 02/11/2021 [facility] Rema Real POLITICAL REPORTER [facility] [place] [address] [phone] 02/27/2021 Home Visit Family Medicine Magaly Morales, [facility] [employer] Fabricator And Assembler [address] [place] [address] [phone] 03/18/2021 Office Visit Nephrology Erik Lenz MD [address] [facility] [place] [address] [phone] 07/20/2021 Office Visit Family Medicine Kevin Whiteside, [address] [facility] [place] [address] [phone] 08/18/2021 Office Visit Pulmonary Celsa Tafoya CRNP [address] [facility] [place] [address] [phone] Health Maintenance Due Date Last Done Comments Pneumococcal Vaccine: 65+ Years (2 of 2) 2020 08/22/2009, 06/15/2006 DIABETES-URINE MICROALBUMIN EVERY 12 MONTHS 12/23/2020 12/24/2019, 11/30/2019, 05/24/2019, Additional history exists Yearly B-12 01/22/2021 01/23/2020, 02/24, 05/16/2018 DIABETES-EYE EXAM 04/07/2021 04/07/2020, , 02/24/2010 (Done elsewhere), Additional history exists DIABETES-HGBA1C EVERY 6 MONTHS 05/17/2021 11/17/2020, 01/23/2020, 11/07/2019, Additional history exists CKD GFR USE SMARTSET 56279 06/26/202112/25, 11/17/2020, 05/06/2020, Additional history exists BREAST CANCER SCREENING DISCUSSION YEARLY AGES 40-75 10/01/2021 10/01/2020, 07/10/2019, 06/23/2018, Additional history exists CKD PHOS USE SMARTSET 27698 11/17/2021 02/2 10/2020, 12/24/2019, 11/07/2019, Additional history exists CKD HGB USE SMARTSET 45036 12/25/202112/25, 12/25/2020, 11/17/2020, Additional history exists DIABETES-FOOT [...] File Type Date Recorded Patient Director Of Gift Planning Expl 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
--- OUTSIDE RECORDS SUMMARY | 2023-06-01 05:07 | External Medical Summary | Summary of Care ---
Author Name Unknown Organization [place] [address] Care Team Providers Care After School Coordinator Name Role Phone Kevin Whiteside DO Primary Care Provider Reason for Visit * Reason Comments Dosage Adjustment In Person (Anticoag Cl inic) Diabetes Follow-Up Encounter Details Date Type Department Care Team Description 01/14/2021 Office Visit Pharmacy, [facility] [address] [facility] [place] [address] [facility] 132 [facility] [place] [address] Type 2 diabetes mellitus with hemoglobin A1c goal of 7.0%-8.0% ([facility])* Allergies Active Allergy Reactions Severity Noted Date Comments Codeine 07/08/2014 hallucination Pollen 05/18/2019 Heparin 09/04/2009 Heparin Induced Thrombocytopenia Hydrocodone Neuro complications (Please comment) 07/28/2020 Empagliflozin Other (Please comment) Medium 05/17/2018 3 yeast infections in 6 weeks after starting Morphine And Related 09/16/1997 Hallucinations Tetanus Toxoid Other (Please comment) 06/15/2011 Passed out documented as of this encounter (statuses as of 01/14/2021) Medications Medication Sig Dispensed Refills Start Date [...] instructions reported), Reported on 12/09/2020 DIURETIC TITRATION PLANIndications:Lab Pack Chemist zahra diastolic congestive heart failure (HCC) If no improvement on day 3, contact heart failure managing provider. 1 Each 0 04/08/2020 Active dicyclomine (BENTYL) 20 MG Tablet Take 1 Tab by mouth 4 times a day as needed for Pain, Mild. For abdominal pain 120 Tab 11 05/06/2020 Active Blood Glucose Monitoring Suppl (OptasiteTOUCH ULTRA 2) w/Device KIT Use to test [...] 7.0%-8.0% ([facility]) Inject up to 30 units with meals [...] A1c goal of 7.0%-8.0% ([facility]) Take 1 Cap by mouth [...] as of this encounter (statuses as of 01/14/2021) Active Problems Problem Noted Date Hypotension 12/19/2020 [...] 10/14/2014 Overview: ICD-10 update of inactive term [place] filter in place 08/19/2014 History of pulmonary embolus (PE) 2013 Statin intolerance 07/16/2014 HTN, goal below 130/80 02/22/2014 Venous insufficiency 02/07/2013 ELISSA (obstructive sleep apnea) 09/16/2011 Overview: CPAP 11 cwp Mild, AHI 11.3 but with significant nocturnal hypoxemia Dicks Postsurgical hypothyroidism 06/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 documented as of this encounter (statuses as of 01/14/2021) Resolved Problems Problem Noted Date Resolved Date [...] as of this encounter (statuses as of 01/14/2021) Immunizations Name Administration Dates Next Due COVID-19 [...] this encounter Progress Notes * Rose Avila, [facility] - 01/14/2021 3:46 PM EDT Medication Therapy [facility] - Diabetes Management Progress Note Stephanie Camp, identified by name and date of , is a 65 year old female being seen for diabetes management/education. Patient presents for return diabetic visit. DIABETES: Current diabetic medications: Novolog - 35 units with meals +SS 1:25 >150 Tresiba 60 units HS Medication Injection Site: Abdomen Lifestyle: Diet: unchanged Glucose Review/SMBG: Readings per patient memory/recall: Patient is currently testing 2-3 times a day Hypoglycemia: Does your blood sugar go below 70 mg/dL? No Hyperglycemia symptoms present: none Lab Results Component Value Date/Time HEMOGLOBIN A1C - [facility] 8.3 (H) 11/17/2020 01:00 PM HEMOGLOBIN A1C - [facility] 7.3 (H) 01/23/2020 11:11 AM Lab Results Component Value Date/Time ESTIMATED GLOMERULAR FILTRATION RATE - [facility] 39.5 [...] (A) 02/26/2019 HYPERTENSION: Patient on ACEi/ARB: no, kidney function BP Readings from Last 3 Encounters: 01/14/21 126/80 01/01/21 106/68 12/31/20 108/78 Blood pressure at goal: yes HYPERLIPIDEMIA: Patient is taking moderate or high intensity statin: No Current regimen: None Goal statin intensity: high The 10-year ASCVD risk score (Freddy JOHNS Jr., et al., 2013) is: 15.3% Values used to calculate the score: Age: 65 years Sex: Female Is Non- : No Diabetic: Yes Tobacco smoker: No Systolic Blood Pressure: 126 mmHg Is BP treated: Yes HDL Cholesterol: [...] 2020 DIABETES-URINE MICROALBUMIN EVERY 12 MONTHS 12/23/2020 ASSESSMENT & PLAN: ICD-10-CM 1. Type 2 diabetes mellitus with hemoglobin A1c goal of 7.0%-8.0% (HCC) E11.9 BG Readings Blood sugars uncontrolled. Patient notes BG values are in the 200-300 range. Medications Reviewed current regimen, patient is adherent to regimen. Recommending to increase sliding scale. Patient agreeable. Diet, Exercise, Lifestyle No significant lifestyle changes since last visit. Discussed with patient. Patient is agreeable to SMBG 2-3 time(s) daily. Patient aware to contact clinic if any hypoglycemia before next visit. MEDICATION CHANGES: yes, see below; preferred pharmacy: [facility] ([facility]) Diabetic Medications: INCREASE: Novolog - 40 units with meals +SS 1:25 >150 Tresiba 60 units HS HEALTH MAINTENANCE INTERVENTIONS: Labs: Up to Date Immunizations: Up to Date Foot Exam: Up to Date Eye Exam: Up to Date Annual Wellness Visit: N/A FOLLOW UP: Return to clinic in 4 weeks Next Office Visit: 02/02/2021 Scheduled Provider(s): [facility] Moe Avila luis Clinical Pharmacist - [facility] 01/14/2021, 3:46 PM documented in this encounter Plan of Treatment Upcoming Encounters Date Type Specialty Care Team Description 01/19/2021 [facility] Visit [facility] Vera Capellan RN [address] [place] [address] [phone] 02/02/2021 Office Visit Pharmacy [facility] Jeramie [address] [place] [address] 02/02/2021 Office Visit Cardiology Rey Woodall MD [address] [place] [address] [phone] 02/11/2021 Home Visit [facility] Rema Real LSW [address] [place] [address] [phone] 02/27/2021 Home Visit Family Medicine Magaly Morales, Community Health Screen Machine Operator [address] [place] [address] [phone] 03/18/2021 Office Visit Nephrology Erik Lenz MD 200 [facility] [place] [address] [phone] 07/20/2021 Office Visit Family Medicine Kevin Whiteside DO [address] [place] [address] [phone] 08/18/2021 Office Visit Pulmonary Celsa Tafoya CRNP [address] [place] [address] Health Maintenance [...] Additional history exists CKD GFR USE SMARTSET 44526 06/26/202112/25, 11/17/2020, 05/06/2020, Additional history exists BREAST CANCER SCREENING DISCUSSION YEARLY AGES 40-75 10/01/2021 10/01/2020, 07/10/2019, 06/23/2018, Additional history exists CKD PHOS USE SMARTSET 62828 11/17/202110/28, 12/24/2019, 11/07/2019, Additional history exists CKD HGB USE SMARTSET 13308 12/25/202112/25, 12/25/2020, 11/17/2020, Additional history exists DIABETES-FOOT [...] Documents on File Type Date Recorded Patient Expansion Joint Builder Expl 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
--- OUTSIDE RECORDS SUMMARY | 2023-06-01 05:07 | External Medical Summary | Summary of Care ---
Author Name Unknown Organization [place] [address] Care Team Providers Care Grove Worker Name Role Phone Kevin Whiteside DO Primary Care Provider Reason for Visit * Reason Comments [facility]: Maintenance Encounter Details Date Type Department Care Team Description 01/22/2021 Swimming Coach Or Instructor [facility], [facility] [place] [address] Rema Real, THREAD MACHINE OPERATOR [address] [facility] [place] [address] [phone] Allergies Active Allergy Reactions Severity Noted Date Comments Codeine 07/08/2014 hallucination Pollen 05/18/2019 Heparin 09/04/2009 Heparin Induced Thrombocytopenia Hydrocodone Neuro complications (Please comment) 07/28/2020 Empagliflozin Other (Please comment) Medium 05/17/2018 3 yeast infections in 6 weeks after starting Morphine And Related 09/16/1997 Hallucinations Tetanus Toxoid Other (Please comment) 06/15/2011 Passed out documented as of this encounter (statuses as of 01/22/2021) Medications Medication Sig Dispensed Refills Start Date [...] instructions reported), Reported on 12/09/2020 DIURETIC TITRATION PLANIndications:Cat Driver zahra diastolic congestive heart failure (HCC) [...] of 7.0%-8.0% ([facility]) Inject up to 30 units with [...] goal of 7.0%-8.0% ([facility]) Take 1 Cap by mouth 3 [...] as of this encounter (statuses as of 01/22/2021) Active Problems Problem Noted Date Hypotension 12/19/2020 [...] 10/14/2014 Overview: ICD-10 update of inactive term [place] filter in place 08/19/2014 History of pulmonary embolus (PE) 2013 Statin intolerance 07/16/2014 HTN, goal below 130/80 02/22/2014 Venous insufficiency 02/07/2013 ELISSA (obstructive sleep apnea) 09/16/2011 Overview: CPAP 11 cwp Mild, AHI 11.3 but with significant nocturnal hypoxemia Dicks Postsurgical hypothyroidism 06/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 documented as of this encounter (statuses as of 01/22/2021) Resolved Problems Problem Noted Date Resolved Date [...] as of this encounter (statuses as of 01/22/2021) Immunizations Name Administration Dates Next Due COVID-19 mRNA, LNP-s, No Pre serve, 2-Dose Series (AVdirect) 12/29/2020,12/18/2020 Pneumococcal Polysaccharide PPV23 (Pneumovax) 08/22/2009,06/15/2006 Seasonal [...] of this encounter Progress Notes * Rema Real LSW - 01/22/2021 4:06 PM EDT STEFANY called Stephanie for follow up. She reports she does have an appointment Tuesday for counseling with Dr Landry for counseling. STEFANY also followed up on referral for cleaning assist=chore service through [facility] -Stephanie was not able to complete form on computer. STEFANY will e-mail request to [place] for this assistance. Stephanie in agreement with referrals. STEFANY to maintain contact with Stephanie. documented in this encounter Plan of Treatment Upcoming Encounters Date Type Specialty Care Team Description 02/02/2021 Office Visit Pharmacy [facility] Jer[place] [address] [place] [address] 02/02/2021 Office Visit Cardiology Rey Woodall MD [address] [place] [address] [phone] 02/10/2021 Home Visit [facility] Vera Capellan, RN [address] [place] [address] [phone] 02/11/2021 Home Visit [facility] Rema Real LSW [address] [place] [address] [phone] 02/27/2021 Home Visit Family Medicine Magaly Morales, Community Health Computer Art Instructor [address] [place] [address] [phone] 03/18/2021 Office Visit Nephrology Erik Lenz MD 200 [facility] [place], [place] [address] [phone] 07/20/2021 Office Visit Family Medicine Kevin Whiteside DO [address] [place] [address] [phone] 08/18/2021 Office Visit Pulmonary Celsa Tafoya CRNP [address] [place] [address] [phone] Health Maintenance Due Date Last Done Comments Pneumococcal Vaccine: 65+ Years (2 of 2) 2020 08/22/2009, 06/15/2006 DIABETES-URINE MICROALBUMIN EVERY 12 MONTHS 12/23/2020 12/24/2019, 11/30/2019, 05/24/2019, Additional history exists Yearly B-12 01/22/2021 01/23/2020, 02/24, 05/16/2018 DIABETES-EYE EXAM 04/07/2021 04/07/2020, , 02/24/2010 (Done elsewhere), Additional history exists DIABETES-HGBA1C EVERY 6 MONTHS 05/17/2021 11/17/2020, 01/23/2020, 11/07/2019, Additional history exists CKD GFR USE SMARTSET 26791 06/26/202112/25, 11/17/2020, 05/06/2020, Additional history exists BREAST CANCER SCREENING DISCUSSION YEARLY AGES 40-75 10/01/2021 10/01/2020, 07/10/2019, 06/23/2018, Additional history exists CKD PHOS USE SMARTSET 99677 11/17/202110/28, 12/24/2019, 11/07/2019, Additional history exists CKD HGB USE SMARTSET 25470 12/25/202112/25, 12/25/2020, 11/17/2020, Additional history exists DIABETES-FOOT [...] Documents on File Type Date Recorded Patient [employer] Hazmat Tanker Driver Expl 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
--- OUTSIDE RECORDS SUMMARY | 2023-06-01 05:07 | External Medical Summary | Summary of Care ---
Author Name Unknown Organization [facility] Address [facility] [place] [address] Care Team Providers Care Speech Professor Name Role Phone Kevin Whiteside Terrencemelinda Primary Care Provider Reason for Visit * Reason Onset Date Comments Appointment Canceled 01/19/2021 Encounter Details Date Type Department Care Team Description 01/19/2021 Telephone [facility], [facility] 132 [facility] [place] [id number] [place] [address] Appointment Canceled Allergies Active Allergy Reactions Severity Noted Date [...] instructions reported), Reported on 12/09/2020 DIURETIC TITRATION PLANIndications:Carbon Brushes Assembler zahra diastolic congestive heart failure (HCC) If no improvement on day 3, contact heart failure managing provider. 1 Each 0 04/08/2020 Active dicyclomine (BENTYL) 20 MG Tablet Take 1 Tab by mouth 4 times a day as needed for Pain, Mild. For abdominal pain 120 Tab 11 05/06/2020 Active Blood Glucose Monitoring Suppl (SpinomixTOUCH ULTRA 2) w/Device KIT Use to test [...] of 7.0%-8.0% ([facility]) Inject up to 30 units [...] goal of 7.0%-8.0% ([facility]) Take 1 Cap by mouth [...] 10/14/2014 Overview: ICD-10 update of inactive term [place] filter in place 08/19/2014 History of pulmonary [...] mRNA, LNP-s, No Pre serve, 2-Dose Series ([employer]) 12/29/2020,12/18/2020 Pneumococcal Polysaccharide PPV23 (Pneumovax) 08/22/2009,06/15/2006 Seasonal [...] encounter Miscellaneous Notes * Telephone Encounter - Cora Krishnamurthy RN - 01/19/2021 7:16 AM EDT This is a Triage Encounter, Do Not Addend or use for orders. If any action is needed, create a separate telephone encounter or orders only encounter. Patient is calling in as a [facility] pt and needs to change her appt to day with Vera for either earlier today or tomorrow Routed to Nurse and nurse pool for [facility] Cora Krishnamurthy RN, CCRN [facility] canteen manager Nurse Triage 01/19/2021 7:20 AM documented in this encounter Plan of Treatment Upcoming Encounters Date Type Specialty Care Team Description 01/19/2021 Drywall Carrier [facility] Rema Real LSW [address] [place] [address] [phone] 01/19/2021 Home Visit [facility] Vera Capellan RN [address] [place] [address] [phone] 02/02/2021 Office Visit Pharmacy [facility] [address] [place] [address] 02/02/2021 Office Visit Cardiology Rey Woodall MD [address] [place] [address] [phone] 02/11/2021 Home Visit [facility] Rema Real LSW [address] [place] [address] [phone] 02/27/2021 Home Visit Family Medicine Magaly Morales, Community Health Acquisitions Analyst [address] [facility], [place] [address] 03/18/2021 Office Visit Nephrology Erik Lenz MD [address] [facility] [place] [address] [phone] 07/20/2021 Office Visit Family Medicine Kevin Whiteside DO [address] [place] [address] [phone] 08/18/2021 Office Visit Pulmonary Celsa Tafoya CRNP [address] [place] [address] [phone] Health Maintenance Due Date Last Done Comments Pneumococcal Vaccine: 65+ Years (2 of 2) 2020 08/22/2009, 06/15/2006 DIABETES-URINE MICROALBUMIN EVERY 12 MONTHS 12/23/2020 12/24/2019, 11/30/2019, 05/24/2019, Additional history exists Yearly B-12 01/22/2021 01/23/2020, 02/24, 05/16/2018 DIABETES-EYE EXAM 04/07/2021 04/07/2020, , 02/24/2010 (Done elsewhere), Additional history exists DIABETES-HGBA1C EVERY 6 MONTHS 05/17/2021 11/17/2020, 01/23/2020, 11/07/2019, Additional history exists CKD GFR USE SMARTSET 65223 06/26/202112/25, 11/17/2020, 05/06/2020, Additional history exists BREAST CANCER SCREENING DISCUSSION YEARLY AGES 40-75 10/01/2021 10/01/2020, 07/10/2019, 06/23/2018, Additional history exists CKD PHOS USE SMARTSET 47112 11/17/202110/28, 12/24/2019, 11/07/2019, Additional history exists CKD HGB USE SMARTSET 57355 12/25/202112/25, 12/25/2020, 11/17/2020, Additional history exists DIABETES-FOOT [...] Documents on File Type Date Recorded Patient Fuel Handler Expl 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
--- OUTSIDE RECORDS SUMMARY | 2023-06-01 05:07 | External Medical Summary | Summary of Care ---
Author Name Unknown Organization [facility] Address [facility] [place] [address] Care Team Providers Care Retail Leasing Agent Name Role Phone Kevin Whiteside DO Primary Care Provider Reason for Visit * Reason Comments [facility]: Maintenance Encounter Details Date Type Department Care Team Description 01/13/2021 Home Visit [facility], [facility] [address] [place] [address] Rema Real, CLOTH FINISHING RANGE BACK TENDER [address] [facility] [place] [address] [phone] Allergies Active Allergy Reactions Severity Noted Date Comments Codeine 07/08/2014 hallucination Pollen 05/18/2019 Heparin 09/04/2009 Heparin Induced Thrombocytopenia Hydrocodone Neuro complications (Please comment) 07/28/2020 Empagliflozin Other (Please comment) Medium 05/17/2018 3 yeast infections in 6 weeks after starting Morphine And Related 09/16/1997 Hallucinations Tetanus Toxoid Other (Please comment) 06/15/2011 Passed out documented as of this encounter (statuses as of 01/13/2021) Medications Medication Sig Dispensed Refills Start Date [...] instructions reported), Reported on 12/09/2020 DIURETIC TITRATION PLANIndications:Suspect Artist zahra diastolic congestive heart failure (HCC) [...] goal of 7.0%-8.0% ([facility]) Inject up to 30 units [...] FOR SPASM 30 Tab 0 09/04/2020 Active Additional Information Patient not taking. Reported on 01/01/2021 Levothyroxine Sodium 200 MCG Oral Tablet (LEVOXYL)Indications :Postsurgical hypothyroidism TAKE ONE TABLET BY MOUTH IN THE MORNING AT LEAST 30 MINUTES PRIOR TO BREAKFAST OR OTHER MEDS 90 Tab 1 09/20/2020 Active Levothyroxine Sodium 25 MCG Oral Tablet (LEVOXYL)Indications :Postsurgical hypothyroidism Take 1 tablet every day in the morning (at least 30 min prior to breakfast or other meds) 90 Tab 1 09/20/2020 Active Nortriptyline HCl [...] A1c goal of 7.0%-8.0% ([facility]) Take 1 Cap by mouth [...] a day. 60 Tab 0 12/29/2020 Active documented as of this encounter (statuses as of 01/13/2021) Active Problems Problem Noted Date Hypotension 12/19/2020 [...] 10/14/2014 Overview: ICD-10 update of inactive term [place] filter in place 08/19/2014 History of pulmonary embolus (PE) 2013 Statin intolerance 07/16/2014 HTN, goal below 130/80 02/22/2014 Venous insufficiency 02/07/2013 ELISSA (obstructive sleep apnea) 09/16/2011 Overview: CPAP 11 cwp Mild, AHI 11.3 but with significant nocturnal hypoxemia Dicks Postsurgical hypothyroidism 06/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 documented as of this encounter (statuses as of 01/13/2021) Resolved Problems Problem Noted Date Resolved Date [...] as of this encounter (statuses as of 01/13/2021) Immunizations Name Administration Dates Next Due Pneumococcal Polysaccharide PPV23 (Pneumovax) 08/22/2009,06/15/2006 Seasonal Influenza, [...] Progress Notes * Rema Real LSW - 01/13/2021 11:16 AM EDT Met with Stephanie for follow up and supportive visit. She shared the following; -L arm out of cast -will begin therapy this week for improved mobility with arm- [facility]. -Referral to [facility] for PERS-wants to utilize PERS-living alone and risk for falls, has vertigo at times -Referral to [facility] for cleaning, chore service-STEFANY had made referral- waiting to hear back,called again today and waiting for return call. -Stephanie reporting low motivation, lack of energy, can't get started on taking care of ADL's. She isplanning to follow up with Dr Whiteside tomorrow at appointment. STEFANY discussed benefit of outpatient counseling and she is agreeable. Referral For out patient therapy -Dr Gonzalez -if he does not have openings will search for other providers. -SW providing opportunity for Stephanie to share thoughts, feelings, history of experiences with depression. Provided support, reflective listening. SW will return in one month. Scheduled February 11. STEFANY will maintain contact in regard to counseling andcommunity services. documented in this encounter Plan of Treatment Upcoming Encounters Date Type Specialty Care Team Description 01/14/2021 Office Visit Family Medicine Kevin Whiteside DO [address] [place] [address] [phone] 01/14/2021 Office Visit [facility] [place] [address] [place] [address] 01/19/2021 Home Visit [facility] Vera Capellan RN [address] [facility] [place] [address] [phone] 02/02/2021 Office Visit Cardiology Rey Woodall MD [address] [place] [address] [phone] 02/11/2021 [facility] Visit [facility] Rema Real LSW [address] [place] [address] [phone] 02/27/2021 Home Visit Family Medicine Magaly Morales, Community Health Core Stacker [address] [place] [address] 03/18/2021 Office Visit Nephrology rEik Lenz MD [address] [facility] [address] [phone] 08/18/2021 Office Visit Pulmonary Celsa Tafoya CRNP [address] [place] [address] [phone] Health Maintenance Due Date Last Done Comments Pneumococcal Vaccine: 65+ Years (2 of 2) 2020 08/22/2009, 06/15/2006 DIABETES-FOOT EXAM 11/07/2020 11/07/2019, 0 01/01/2019, 12/29/2017, Additional history exists DIABETES-URINE MICROALBUMIN EVERY 12 MONTHS 12/23/2020 12/24/2019, 11/30/2019, 05/24/2019, Additional history exists Yearly B-12 01/22/2021 01/23/2020, 02/24, 05/16/2018 DIABETES-EYE EXAM 04/07/2021 04/07/2020, , 02/24/2010 (Done elsewhere), Additional history exists DIABETES-HGBA1C EVERY 6 MONTHS 05/17/2021 11/17/2020, 01/23/2020, 11/07/2019, Additional history exists CKD GFR USE SMARTSET 54231 06/26/202112/25, 11/17/2020, 05/06/2020, Additional history exists BREAST CANCER SCREENING DISCUSSION YEARLY AGES 40-75 10/01/2021 10/01/2020, 07/10/2019, 06/23/2018, Additional history exists CKD PHOS USE SMARTSET 94940 11/17/202110/28, 12/24/2019, 11/07/2019, Additional history exists CKD HGB USE SMARTSET 25291 12/25/202112/25, 12/25/2020, 11/17/2020, Additional history exists *DEPRESSION SCREENING,ANNUAL FOR PTS 12 AND OVER Addressed 06/12/2018 Overridden with the intention of not completing the topic Zoster Vaccines Completed 05/08/2020, 10/27, 12/11/2015 Influenza Vaccine (FLU shot) Completed 06/13/2020, 07/23/2019, 06/12/2018, Additional history exists MENINGOCOCCAL (MENACTRA/MENVEO) Aged Out No longer eligible based on patient's age to complete this topic documented as of this encounter Implants Not on filedocumented as of this encounter Advance Directives Documents on File Type Date Recorded Patient Supervisor Refining Expl 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
--- OUTSIDE RECORDS SUMMARY | 2023-06-01 05:07 | External Medical Summary | Summary of Care ---
Author Name Unknown Organization [place] [address] Care Team Providers Care Asbestos Handler Name Role Phone Kevin Whiteside DO Primary Care Provider Reason for Visit * Reason Comments [facility]: Maintenance Encounter Details Date Type Department Care Team Description 01/14/2021 Cafe Team Member [facility] [address] [facility] [place] [address] Ream Real, EXECUTIVE WELLNESS PROGRAMS DIRECTOR [address] [facility] [place] [address] [phone] Allergies Active Allergy Reactions Severity Noted Date [...] instructions reported), Reported on 12/09/2020 DIURETIC TITRATION PLANIndications:Stroboscope Operator zahra diastolic congestive heart failure (HCC) [...] of 7.0%-8.0% ([facility]) Inject up to 30 units [...] goal of 7.0%-8.0% ([facility]) Take 1 Cap by mouth [...] 10/14/2014 Overview: ICD-10 update of inactive term [place] filter in place 08/19/2014 History of pulmonary [...] mRNA, LNP-s, No Pre serve, 2-Dose Series ([employer]) 12/29/2020,12/18/2020 Pneumococcal Polysaccharide PPV23 (Pneumovax) 08/22/2009,06/15/2006 [...] Progress Notes * Rema Real LSW - 01/14/2021 5:07 PM EDT STEFANY made formal referral to Dr Isai Landry for outpatient counseling. Spoke with Kriss from his office. Did share information -demographics so Kriss can follow up with Stephanie directly. STEFANY did askKriss to keep in touch with STEFANY regarding outcome of their conversation to ensure follow up. documented in this encounter Plan of Treatment Upcoming Encounters Date Type Specialty Care Team Description 01/19/2021 Home Visit [facility] Vera Capellan RN [address] [place] [address] [phone] 02/02/2021 Office Visit Pharmacy [facility] [address] [place] [address] [address] 02/02/2021 Office Visit Cardiology Rey Woodall MD [address] [place] [address] [address] [phone] 02/11/2021 Home Visit [facility] Rema Real LSW [address] [place] [address] [address] [phone] 02/27/2021 Home Visit Family Medicine Magaly Morales, Community Health Philosophy Specialist [address] [place] [address] [phone] 03/18/2021 Office Visit Nephrology Erik Lenz MD [address] [place] [address] [phone] 07/20/2021 Office Visit Family Medicine Kevin Whiteside DO [address] [place] [address] [address] [phone] 08/18/2021 Office Visit Pulmonary Celsa Tafoya CRNP [...] Additional history exists CKD GFR USE SMARTSET 01410 06/26/202112/25, 11/17/2020, 05/06/2020, Additional history exists BREAST CANCER SCREENING DISCUSSION YEARLY AGES 40-75 10/01/2021 10/01/2020, 07/10/2019, 06/23/2018, Additional history exists CKD PHOS USE SMARTSET 53921 11/17/2021 02/10/2020, 12/24/2019, 11/07/2019, Additional history exists CKD HGB USE SMARTSET 85694 12/25/202112/25, 12/25/2020, 11/17/2020, Additional history exists DIABETES-FOOT [...] Documents on File Type Date Recorded Patient Milled Rubber Tender Expl 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
--- OUTSIDE RECORDS SUMMARY | 2023-06-01 05:07 | External Medical Summary | Summary of Care ---
Author Name Unknown Organization [place] [address] Care Team Providers Care Ocean Freight Agent Name Role Phone Kevin Whiteside DO Primary Care Provider Reason for Visit * Reason Comments [facility]: Maintenance Encounter Details Date Type Department Care Team Description 01/19/2021 Stretching Machine Tender Frame [facility], 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 diastolic congestive heart failure (HCC) If [...] ([facility]) Inject up to 30 units [...] 7.0%-8.0% ([facility]) Take 1 Cap by mouth [...] 10/14/2014 Overview: ICD-10 update of inactive term [place] filter in place 08/19/2014 History of pulmonary [...] mRNA, LNP-s, No Pre serve, 2-Dose Series ([employer]) 12/29/2020,12/18/2020 Pneumococcal Polysaccharide PPV23 (Pneumovax) 08/22/2009,06/15/2006 [...] Progress Notes * Rema Real LSW - 01/19/2021 11:06 AM EDT STEFANY making referral to [employer] for assistance with cleaning/chore service. Spoke with Marlena from [facility]. She directed me to a website. Form needs to be complete. Attempted to complete but it would not take certain information-difficult to submit. Message to her and also callednandre for form. STEFANY called Stephanie. Followed up on contact with Psychologist. She has not heard from them . STEFANY calledKriss this date for follow up. Left message. Spoke with Kriss later in day. She will call Stephanie and offer an appointment. STEFANY educated Stephanie on [facility] service project. She agrees to try and fill out the form requesting assistance. STEFANY emailed the form to her for request. documented in this encounter Plan of Treatment Upcoming Encounters Date Type Specialty Care Team Description 02/02/2021 Office Visit Pharmacy [facility] [address] [place] [address] [address] 02/02/2021 Office Visit Cardiology Rey Woodall MD [address] [place] [address] [address] [phone] 02/10/2021 Home Visit [facility] Vera Capellan, RN [address] [address] [phone] 02/11/2021 Home Visit [facility] Rema Real, ONLINE MARKETING DIRECTOR [address] [place] [address] [phone] 02/27/2021 Home Visit Family Medicine Magaly Morales, [facility] Specialist [address] [place] [address] [phone] 03/18/2021 Office Visit Nephrology Erik Lenz MD [address] [facility], [place] [id number] 07/20/2021 Office Visit Family Medicine Kevin Whiteside DO [address] [place] [address] 08/18/2021 Office Visit Pulmonary Celsa Tafoya CRNP [address] [facility] [place] [address] Health Maintenance Due Date Last Done Comments Pneumococcal Vaccine: 65+ Years (2 of 2) 2020 08/22/2009, 06/15/2006 DIABETES-URINE MICROALBUMIN EVERY 12 MONTHS 12/23/2020 12/24/2019, 11/30/2019, 05/24/2019, Additional history exists Yearly B-12 01/22/2021 01/23/2020, 02/24, 05/16/2018 DIABETES-EYE EXAM 04/07/2021 04/07/2020, , 02/24/2010 (Done elsewhere), Additional history exists DIABETES-HGBA1C EVERY 6 MONTHS 05/17/2021 11/17/2020, 01/23/2020, 11/07/2019, Additional history exists CKD GFR USE SMARTSET 98978 06/26/202112/25, 11/17/2020, 05/06/2020, Additional history exists BREAST CANCER SCREENING DISCUSSION YEARLY AGES 40-75 10/01/2021 10/01/2020, 07/10/2019, 06/23/2018, Additional history exists CKD PHOS USE SMARTSET 21824 11/17/2021 02/2 10/2020, 12/24/2019, 11/07/2019, Additional history exists CKD HGB USE SMARTSET 64194 12/25/202112/25, 12/25/2020, 11/17/2020, Additional history exists DIABETES-FOOT [...] Documents on File Type Date Recorded Patient Twist Tester Expl 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
--- OUTSIDE RECORDS SUMMARY | 2023-06-01 05:07 | External Medical Summary | Summary of Care ---
Author Name Unknown Organization [place] [address] Care Team Providers Care Service Vehicle Operator Name Role Phone Kevin Whiteside DO Primary Care Provider Reason for Visit * Reason Comments Re-Check Pt here for recheck/ 6 mo . No new concerns per pt. Encounter Details Date Type Department Care Team Description 01/14/2021 Office Visit [facility] [address] [place] [address] Kevin Whiteside DO [address] [facility] [place] [address] DM type 2 nursing care encounter ([facility])*; Type 2 diabetes mellitus with hemoglobin A1c goal of 7.0%-8.0% ([facility]); Controlled substance agreement signed; Hyperparathyroidism, secondary renal ([facility]); ELISSA (obstructive sleep apnea); HTN, goal below 130/80; Chronic diastolic congestive heart failure ([facility]); 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 90 Tab 3 0 Active omeprazole (PRILOSEC) 20 MG [...] 11 0 Active Blood Glucose Monitoring Suppl (ONETOUCH ULTRA 2) w/Device KIT Use to test BG values 1 Kit 0 0 Active Glucose Blood (ONETOUCH ULTRA BLUE) STRP Check sugars 3-4 times daily, E11.9 400 Strip 3 0 Active TRULICITY 1.5 MG/0.5ML SOPNIndications:DM type 2 nursing care encounter ([facility]),Uncontrolled type 2 diabetes mellitus with stage 3 chronic kidney disease, with long-term current use of insulin ([facility]) inject 1.5mg (one pen) under [...] with insulin 200 Each 11 0 Active NovoLOG FlexPen 100 UNIT/ML Subcutaneous Solution Pen-injector (insulin aspart)Indications: Type 2 diabetes mellitus with hemoglobin A1c goal of 7.0%-8.0% ([facility]) Inject up to 30 units with meals plus sliding scale as directed by diabetes clinic 81 mL 3 0 Active Magnesium Oxide 400 (241.3 Mg) [...] for Nausea. 30 Tab 0 1 Active clonazePAM 0.5 MG Oral Tablet (KlonoPIN)Indicatio ns:Anxiety state Take 1 Tab by mouth 2 times a day. 60 Tab 0 1 Active Levothyroxine Sodium 50 MCG Oral Tablet (Levoxyl)Indication s:Hyperparathyroidi sm, secondary renal (HCC) Take 1 Tab by mouth daily. (at least 30 min prior to breakfast or other meds) 30 Tab 11 1 Active Levothyroxine Sodium 25 MCG Oral Tablet (LEVOXYL)Indication s:Postsurgical hypothyroidism Take 1 tablet every day in the morning (at least 30 min prior to breakfast or other meds) 90 Tab 1 0 01/15/20 21 Discontinued documented as of this encounter [...] mRNA, LNP-s, No Pre serve, 2-Dose Series (LAVEGO) 12/29/2020,12/18/2020 Pneumococcal Polysaccharide PPV23 (Pneumovax) 08/22/2009,06/15/2006 Seasonal [...] Sign Reading Time Taken Comments Blood Pressure 126/80 01/14/2021 2:52 PM EDT Pulse 101 01/14/2021 2:52 PM EDT Temperature 35.7 C (96.2 F) 01/14/2021 2:52 PM ED T Respiratory Rate 20 01/14/2021 2:52 PM EDT Oxygen Saturation 90% 01/14/2021 2:52 PM EDT Inhaled Oxygen Concentration - - Weight 148.5 kg (327 lb 5 oz) 01/14/2021 2:52 PM EDT Height - - Body Mass Index 56.18 12/29/2020 9:29 AM EDT documented in this encounter Patient Instructions * Patient Instructions* Hortencia Aguirre, CHUYITA - 01/14/2021 2:48 PM EDT Diabetes: Keeping Feet Healthy Inspect your [...] calluses yourself. Talk to your doctor or heel buffer (a doctor who specializes in foot care) [...] the area doesnt appear to be healing. [id number] [employer], [address] [place] [address], [place] [address]. All rights reserved. This information is not intended as a substitute for professional medical care. Always follow your healthcare professional's instructions. documented in this encounter Progress Notes * Kevin Whiteside, - 01/14/2021 2:52 PM EDT Nursing Notes: Hortencia Aguirre LPN 01/14/21 1456 Signed The patient has been properly identified by confirmation of name and date of . Chief Complaint Patient presents with Re-Check Pt here for recheck/ 6 mo . No new concerns per pt. ASSESSMENT/PLAN: 1. Type 2 diabetes mellitus with hemoglobin A1c goal of 7.0%-8.0% ([facility]) - HEMOGLOBIN A1C; Future - BASIC METABOLIC PANEL; Future - ALBUMIN / CREATININE RATIO, URINE; Future 2. Controlled substance agreement signed 3. Hyperparathyroidism, secondary renal ([facility]) Will adjust up slightly due to TSH being on high side of range, patient with hypo symptoms Will monitor f/u lab - Levothyroxine Sodium 50 MCG Oral Tablet (Levoxyl); Take 1 Tab by mouth daily. (at least 30 min prior to breakfast or other meds) Dispense: 30 Tab; Refill: 11 - TSH WITH FREE T4 IF INDICATED; Future 4. ELISSA (obstructive sleep apnea) 5. HTN, goal below 130/80 - BASIC METABOLIC PANEL; Future - ALBUMIN / CREATININE RATIO, URINE; Future 6. Chronic diastolic congestive heart failure ([facility]) 7. 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 Morbid obesity with BMI of 50.0-59.9, adult ([facility]) 9. Mild episode of recurrent major depressive disorder ([facility]) 10. ELLIE (generalized anxiety disorder) 11. DM type 2 nursing care encounter ([facility]) - DIABETES FOOT EXAM 12. Encounter for long-term (current) use of medications - TSH WITH FREE T4 IF INDICATED; Future - HEMOGLOBIN A1C; Future - BASIC METABOLIC PANEL; Future - LIPID PANEL WITH DIRECT LDL IF TG IS HIGH; Future - CBC WITH WBC DIFFERENTIAL AND ANEMIA REFLEX WORKUP; Future - ALBUMIN / CREATININE RATIO, URINE; Future - ALT; Future HPI: Stephanie Camp is a 65 year old female who: Presents today in f/u Overall malaise/depression still ongoing No big change Occasional dizziness, no pattern to it Elbow improving Bilateral foot swelling an ongoing issue ROS: See HPI for pertinent ROS PHYSICAL EXAMINATION: BP 126/80 (BP Site: Left Arm, BP Position: Sitting, BP Cuff Size: Large) | Pulse 101 | Temp 35.7 C (96.2 F) (Tympanic) | Resp 20 | Wt (!) 148.5 kg (327 lb 5 oz) | LMP 03/11/2003 | SpO2 90% | BMI 56.18 kg/m | BSA 2.59 m GENERAL: alert, [...] LUNGS: clear to auscultation bilaterally. No wheezing/rales/rhonchi Results for orders placed or performed in visit on 12/25/20 BASIC METABOLIC PANEL Result Value Ref Range BUN 28 (H) 6 - 20 mg/dL Creatinine 1.4 (H) 0.5 - 1.0 mg/dL Estimated Glomerular Filtration Rate 39.5 (L) >=60.0 mL/min Sodium 137 135 - 146 mmol/L Potassium 4.4 3.5 - 5.1 mmol/L Chloride 95 (L) 98 - 107 mmol/L CO2 30 22 - 32 mmol/L Anion Gap 12 7 - 15 mmol/L Glucose 304 (H) 70 - 120 mg/dL Calcium 9.7 8.4 - 10.2 mg/dL TSH WITH FREE T4 IF INDICATED Result Value Ref Range TSH 3.88 0.27 - 4.20 uIU/mL MAGNESIUM Result Value Ref Range Magnesium 1.8 1.5 - 2.6 mg/dL CBC Result Value Ref Range WBC 9.17 4.00 - 10.80 K/uL RBC 4.58 3.85 - 5.15 M/uL HGB 13.9 12.0 - 15.3 g/dL HCT 43.9 36.0 - 45.2 % MCV 95.9 81.5 - 97.5 fL MCH 30.3 27.0 - 34.0 pg MCHC 31.7 (L) 32.0 - 36.0 g/dL RDW 14.3 11.5 - 15.5 % Plt 261 140 - 400 K/uL MPV 9.7 6.6 - 11.1 fL AUTOMATED ANALYZER WBC DIFFERENTIAL Result Value Ref Range WBC 9.17 4.00 - 10.80 K/uL Neutrophils % 62.4 40.0 - 75.0 % Lymphocytes % 26.5 18.0 - 42.0 % Monocytes % 6.1 1.0 - 11.0 % Eosinophils % 4.5 0.0 - 6.0 % Basophils % 0.5 0.0 - 2.0 % Absolute Neutrophils 5.72 1.80 - 7.70 K/uL Absolute Lymphocytes 2.43 1.00 - 4.80 K/ul Absolute Monocytes 0.56 0.00 - 1.10 K/uL Absolute Eosinophils 0.41 0.00 - 0.70 K/uL Absolute Basophils 0.05 0.00 - 0.20 K/uL TECHNOLOGIST SLIDE REVIEW Result Value Ref Range NRBC *Note: Due to a large number of [...] goal of 7.0%-8.0% ([facility]) E11.9 Fibromyalgia M79.7 Abnormality of gait R26.9 Restless legs syndrome G25.81 Gastroesophageal reflux disease with esophagitis K21.00 Morbid obesity with BMI of 50.0-59.9, adult ([facility]) E66.01, Z68.43 Controlled substance agreement signed Z79.899 Chronic diastolic congestive heart failure ([facility]) I50.32 Mild episode of recurrent major depressive disorder ([facility]) F33.0 Lumbar radiculopathy M54.16 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, NYHA class 1 and CKD stage 3 ([facility]) I13.0, I50.30, N18.30 Hyperparathyroidism, secondary renal ([facility]) N25.81 Vasculitis ([facility]) I77.6 Primary osteoarthritis of left knee M17.12 Spinal stenosis of lumbar region without neurogenic claudication M48.061 Hypotension I95.9 Past Medical History: Diagnosis Date ELSIE (acute kidney injury) ([facility]) 06/12/2018 Allergic rhinitis due to other allergen Backache Diverticulosis of colon 01/28/06 DM type 2, not at goal (HCC) ELLIE (generalized anxiety disorder) 09/13/2009 Goiter [place] filter in place 08/19/2014 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HCC) [...] COLONOSCOPY, DIAGNOSTIC (RECTUM) 02/18/2016 normal, repeat 10 yrs/[facility] COLONOSCOPY, GI REFERRAL OP 01/28/06 diverticulosis--repeat 10 years INCISION OF [place], PLANNED 06/03/2011 TRACHEOSTOMY PLANNED performed by DANNY HOLDER at OR [facility] INJECT DX/THER SUBSTANCE INTERLAMINAR LUMBAR/SACRAL W IMAGE GUIDE 05/26/2020 INJECTION SPINE LUMBAR OR SACRAL performed by Raj Ahn DO at OR [facility] KNEE ARTHROSCOPY/DEBRIDEMENT 07/[address] PERMANENT GASTROSTOMY TUBE 09/06/09 GASTROSTOMY WITH CONSTUCTION GASTRIC TUBE performed by AMADOU NUNEZ at [facility] REMOVAL OF THYROID GLAND 06/15/2011 THYROIDECTOMY INCLUDING SUBSTERNAL THYROID CERVICAL APPROACH performed by DANNY HOLDER at [facility] REMOVE GALLBLADDER 09/06/09 CHOLECYSTECTOMY performed by AMADOU NUNEZ at [facility] REPAIR RECURRENT INCISIONAL HERNIA 1998 REVISION OF COLOSTOMY, SIMPLE 1997 SACROILIAC JOINT INJECT W/GUIDANCE 07/28/2020 INJECTION SACROILIAC JOINT performed by Raj Ahn DO at OR [facility] SUTURE, LARGE INTESTINE W/COLOSTOMY 1996 perforation R colon with colostomy VENA CAVA FILTER/LIGATION/CLIP 08/19/09 Frank filter placement through the right femoral 08/19/[address] Lerma at [facility] Current Outpatient Medications Medication Sig [...] directed by diabetes clinic 81 mL 3 BD Pen Needle Short U/F 31G [...] once weekly 6 mL 1 Glucose Blood (SayduckUCH ULTRA BLUE) STRP Check sugars 3-4 times daily, E11.9 400 Strip 3 dicyclomine (BENTYL) 20 MG Tablet Take 1 Tab by mouth 4 times a day as needed for Pain, Mild. For abdominal pain 120 Tab 11 DIURETIC TITRATION PLAN If no improvement on day 3, contact heart failure managing provider. 1 Each 0 potassium chloride ER 10 MEQ TBCR Take one 3 days per week (Patient taking differently: Take 10mEq by mouth daily.) 30 Tab 3 ACCU-CHEK SOFTCLIX LANCETS MISC Test blood sugar three or four times daily as directed 400 Each3 omeprazole (PRILOSEC) 20 MG CPDR Take 1 Cap by mouth daily. 90 Cap 3 traZODone (DESYREL) 50 MG Tablet Take 1 Tab by mouth at bedtime. 90 Tab 3 oxygen GAS 2 LPM bled through CPAP 11 cwp during all periods of sleep and 2 LPM via NC with exertion. ONETOUCH DELICA LANCETS 33G MISC Check blood sugars 3-4 times daily 180 Each 5 docusate sodium (STOOL SOFTENER) 100 MG Capsule Take 100 mg by mouth 2 times a day as needed for Constipation. Lidocaine 5 % External Patch (Lidoderm) Place 1 Patch topically on the skin daily. Blood Glucose Monitoring Suppl (ONETOUCH ULTRA 2) w/Device KIT Use to test BG values 1 Kit 0 Review of patient's allergies indicates: Allergen Reactions Jardiance [Empagliflozin] Other (Please comment) 3 yeast infections in 6 weeks after starting Codeine hallucination Hay Fever [Pollen] Heparin Heparin Induced Thrombocytopenia Hydrocodone Neuro complications (Please comment) Morphine And Related Hallucinations Tetanus Toxoid Other (Please comment) Passed out Kevin S Whiteside, DO Family Practice [facility] [address] [facility] [place] [address] I spent 35-45 minutes reviewing this patients [...] listed above.) * Hortencia Aguirre LPN - 01/14/2021 2:48 PM EDT DM Foot Exam completed today. Provider aware. Hortencia Aguirre LPN Socks and Shoes Removed for Annual Diabetic Foot Screening RIGHT FOOT: No Reddened, Cracking, Or Open Areas Noted. RIGHT Dorsalis Pedis Pulse: Palpable RIGHT Posterior Tibial Pulse: Palpable RIGHT Monofilament:Patient reports feeling monofilament pressure on plantar surface of foot LEFT FOOT: No Reddened, Cracking or Open Areas Noted. LEFT Dorsalis Pedis Pulse: Palpable LEFT Posterior Tibial Pulse: Palpable LEFT Monofilament:Patient reports feeling monofilament pressure on plantar surface of foot documented in this encounter Nursing Notes * Hortencia Aguirre LPN - 01/14/2021 2:50 PM EDT The patient has been properly identified by confirmation of name and date of . Chief Complaint Patient presents with Re-Check Pt here for recheck/ 6 mo . No new concerns per pt. documented in this encounter Plan of Treatment Upcoming Encounters Date Type Specialty Care Team Description 01/14/2021 Office Visit [facility]acy [facility] [address] [place] [address] Type 2 diabetes mellitus with hemoglobin A1c goal of 7.0%-8.0% ([facility]) 01/19/2021 Home Visit [facility] Vera Capellan RN [address] [place] [address] [phone] 02/02/2021 Office Visit Cardiology Rey Woodall MD [address] [place] [address] [phone] 02/11/2021 Home Visit [facility] Rema Real LSW [address] [place] [address] [phone] 02/27/2021 Home Visit Family Medicine Magaly Morales, [facility] [address] [place] [address] [phone] 03/18/2021 Office Visit Nephrology Erik Lenz MD [address] [facility] [place] [address] [phone] 07/20/2021 Office Visit Family Medicine Kevin Whiteside DO [address] [place] [address] [phone] 08/18/2021 Office Visit Pulmonary Celsa Tafoya CRNP [address] [address] [phone] Scheduled Orders Name Type Priority Associated Diagnoses Orde r Schedule TSH WITH FREE T4 IF INDICATED Lab Routine Hyperparathyroidism, secondary renal (HCC) Encounter for long-term (current) use of medications Expected: 01/14/2021 (Approximate), Expires: 01/14/2022 HEMOGLOBIN A1C Lab Routine Type 2 diabetes mellitus with hemoglobin A1c goal of 7.0%-8.0% (HCC) Encounter for long-term (current) use of medications Expected: 01/14/2021 (Approximate), Expires: 01/14/2022 BASIC METABOLIC PANEL Lab Routine Type 2 diabetes mellitus with hemoglobin A1c goal of 7.0%-8.0% (HCC) HTN, goal below 130/80 Encounter for long-term (current) use of medications Expected: 01/14/2021 (Approximate), Expires: 01/14/2022 LIPID PANEL WITH DIRECT LDL IF TG IS HIGH Lab Routine Encounter for long-term (current) use of medications Expected: 01/14/2021, Expires: 01/14/2022 CBC WITH WBC DIFFERENTIAL AND ANEMIA REFLEX WORKUP Lab Routine Encounter for long-term (current) use of medications Expected: 01/14/2021 (Approximate), Expires: 01/14/2022 ALBUMIN / CREATININE RATIO, URINE Lab Routine Type 2 diabetes mellitus with hemoglobin A1c goal of 7.0%-8.0% (HCC) HTN, goal below 130/80 Encounter for long-term (current) use of medications Expected: 01/14/2021 (Approximate), Expires: 01/14/2022 ALT Lab Routine Encounter for long-term (current) use of medications Expected: 01/14/2021 (Approximate), Expires: 01/14/2022 Health Maintenance Due Date Last Done Comments Pneumococcal Vaccine: 65+ Years (2 of 2) 2020 08/22/2009, 06/15/2006 DIABETES-URINE MICROALBUMIN EVERY 12 MONTHS 12/23/2020 12/24/2019, 11/30/2019, 05/24/2019, Additional history exists Yearly B-12 01/22/2021 01/23/2020, 02/24, 05/16/2018 DIABETES-EYE EXAM 04/07/2021 04/07/2020, , 02/24/2010 (Done elsewhere), Additional history exists DIABETES-HGBA1C EVERY 6 MONTHS 05/17/2021 11/17/2020, 01/23/2020, 11/07/2019, Additional history exists CKD GFR USE SMARTSET 43339 06/26/202112/25, 11/17/2020, 05/06/2020, Additional history exists BREAST CANCER SCREENING DISCUSSION YEARLY AGES 40-75 10/01/2021 10/01/2020, 07/10/2019, 06/23/2018, Additional history exists CKD PHOS USE SMARTSET 95618 11/17/202110/28, 12/24/2019, 11/07/2019, Additional history exists CKD HGB USE SMARTSET 53866 12/25/202112/25, 12/25/2020, 11/17/2020, Additional history exists DIABETES-FOOT [...] Diagnosis DM type 2 nursing care encounter (HCC)- Primary Type II or unspecified type diabetes mellitus without mention of complication, not stated as uncontrolled Type 2 diabetes mellitus with hemoglobin A1c goal of 7.0%-8.0% (HCC) Controlled substance agreement signed Encounter for long-term (current) use of other medications Hyperparathyroidism, secondary renal (HCC) Secondary hyperparathyroidism (of renal origin) ELISSA (obstructive sleep apnea) Obstructive sleep apnea (adult) (pediatric) HTN, goal below 130/80 Unspecified essential hypertension Chronic diastolic congestive heart failure (HCC) Chronic diastolic heart failure 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
--- OUTSIDE RECORDS SUMMARY | 2023-06-01 05:08 | External Medical Summary ---
Author Name Unknown Address Unknown Organization K0G:[facility] [place] [address] Laboratory Report Ordering Provider Test Date Status AHMET ZUNIGA 12/25/2020 10:10:41 Final Observation Date Value Abnormality Reference (Units ) Status SYNC LEUKOCYTES IN BLOOD BY AUTOMATED COUNT 12/25/2020 10:10:41 9.17 4.00-10.80 (K/uL) Final Segs 12/25/2020 10:10:41 62.4 40.0-75.0 (%) Final Lymphs % 12/25/2020 10:10:41 26.5 18.0-42.0 (%) Final Monos 12/25/2020 10:10:41 6.1 1.0-11.0 (%) Final Eosinophils 12/25/2020 10:10:41 4.5 0.0-6.0 (%) Final Basos 12/25/2020 10:10:41 0.5 0.0-2.0 (%) Final Absolute Segs 12/25/2020 10:10:41 5.72 1.80-7.70 (K/uL) Final Lymphs, absolute 12/25/2020 10:10:41 2.43 1.00-4.80 (K/ul) Final Monos, Abs 12/25/2020 10:10:41 0.56 0.00-1.10 (K/uL) Final Eos, Abs 12/25/2020 10:10:41 0.41 0.00-0.70 (K/uL) Final Basos, Abs 12/25/2020 10:10:41 0.05 0.00-0.20 (K/uL) Final Performing Location [facility] [place] [address]
--- OUTSIDE RECORDS SUMMARY | 2023-06-01 05:08 | External Medical Summary | Summary of Care ---
Author Name Unknown Organization [facility] Address [facility] [place] [address] Care Team Providers Care Meat Butcher Name Role Phone Kevin Whiteside DO Primary Care Provider Reason for Visit * Reason Onset Date Comments Advice 12/25/2020 Encounter Details Date Type Department Care Team Description 12/25/2020 Telephone Family Practice [facility] [address] [place] [address] Kevin Whiteside DO [address] [place] [address] Advice Allergies Active Allergy Reactions Severity Noted Date Comments Codeine 07/08/2014 hallucination Pollen 05/18/2019 Heparin 09/04/2009 Heparin Induced Thrombocytopenia Hydrocodone Neuro complications (Please comment) 07/28/2020 Empagliflozin Other (Please comment) Medium 05/17/2018 3 yeast infections in 6 weeks after starting Morphine And Related 09/16/1997 Hallucinations Tetanus Toxoid Other (Please comment) 06/15/2011 Passed out documented as of this encounter (statuses as of 12/25/2020) Medications Medication Sig Dispensed Refills Start Date [...] mouth daily. 90 Cap 3 12/18/2019 Active metolazone (ZAROXOLYN) 2.5 MG Tablet Take as directed by physician 5 Tab 0 02/26/2020 Active potassium chloride ER 10 MEQ TBCR Take one 3 days per week 30 Tab 3 02/26/2020 Active Additional Information Patient taking differently: 10 mEq Oral DAILY, (No instructions reported), Reported on 12/09/2020 DIURETIC TITRATION PLANIndications:Four H Club Agent zahra diastolic congestive heart failure (HCC) If no improvement on day 3, contact heart failure managing provider. 1 Each 0 04/08/2020 Active dicyclomine (BENTYL) 20 MG Tablet Take 1 Tab by mouth 4 times a day as needed for Pain, Mild. For abdominal pain 120 Tab 11 05/06/2020 Active zoster vac recomb adjuvanted (SHINGRIX) 50 MCG/0.5ML injection Inject 0.5 mL into a large muscle now and repeat dose in 60 to 180 days. Please fax date this was given to our office. (pt already had 1st done in 10/2019 1 Each 0 05/08/2020 Active Blood Glucose Monitoring Suppl (ONETOUCH ULTRA 2) w/Device KIT Use to test BG values 1 Kit 0 05/20/2020 Active Glucose Blood (ONETOUCH ULTRA BLUE) STRP Check sugars 3-4 times daily, E11.9 400 Strip 3 05/22/2020 Active TRULICITY 1.5 MG/0.5ML SOPNIndications:DM type 2 nursing care encounter ([facility]),Uncontrolled type 2 diabetes mellitus with stage 3 chronic kidney disease, with long-term current use of insulin ([facility]) inject 1.5mg (one pen) under the skin [...] of 7.0%-8.0% ([facility]) Inject up to 30 units with meals [...] a day. 270 Cap 0 11/10/2020 Active clonazePAM 0.5 MG Oral Tablet (KlonoPIN)Indication s:Anxiety state Take 1 Tab by mouth 2 times a day. 60 Tab 0 11/10/2020 Active traMADol HCl 50 MG [...] a day. 180 Tab 3 12/22/2020 Active documented as of this encounter (statuses as of 12/25/2020) Active Problems Problem Noted Date Hypotension 12/19/2020 [...] 10/14/2014 Overview: ICD-10 update of inactive term [place] filter in place 08/19/2014 History of pulmonary embolus (PE) 2013 Statin intolerance 07/16/2014 HTN, goal below 130/80 02/22/2014 Venous insufficiency 02/07/2013 ELISSA (obstructive sleep apnea) 09/16/2011 Overview: CPAP 11 cwp Mild, AHI 11.3 but with significant nocturnal hypoxemia Dicks Postsurgical hypothyroidism 06/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 documented as of this encounter (statuses as of 12/25/2020) Resolved Problems Problem Noted Date Resolved Date [...] as of this encounter (statuses as of 12/25/2020) Immunizations Name Administration Dates Next Due Pneumococcal Polysaccharide PPV23 (Pneumovax) 08/22/2009,06/15/2006 Seasonal Influenza, Quadriva lent, No Preserve, 6 Mons & Above, IM 07/23/2019,06/12/2018,07/14/2017 Seasonal Influenza, Quadriva lent, No Preserve, Adjuvanted, 65+ Yrs, IM 06/13/2020 Seasonal Influenza, Quadriva lent, No Preserve, IM 06/24/2016,07/24/2015 Seasonal Influenza, Trivalen t, with Preserve, 3yr & Above, Split 06/13/2014,07/07/2012,06/28/2011,06/15,08/01/2009,07/04/2008,08/14/2007 ,10/19/2006,08/07/2004,09/04/2002 Varicella Zoster Vaccine (Adult) 12/11/2015 Zoster Vaccine Recombinant (Shingrix) 11/07/2019 documented as of this encounter Social History [...] encounter Miscellaneous Notes * Telephone Encounter - Al Peace, [facility] - 12/25/2020 11:05 AM EDT Patient Phone Numbers Patient reports that for the past few weeks her blood sugars have been elevated into the 300's, currently PCP is having patient check for possible Patient denies recent changes in diet / exercise, no changes in medications Patient did not receive message from [facility] yesterday to increase novolog to 35 units + SS, recommending at this time for patient to proceed with that plan, patient to reach out should BG remain elevated, agreeable to plan Diabetes Medications: INCREASE: Novolog 35 units with meals plus 1:25 over 150 Tresiba 60 units HS Follow up in 3 weeks Al Peace, Pharm D Clinical Pharmacist 12/25/2020,11:10 AM * Telephone Encounter - Angi Balderrama LPN - 12/25/2020 9:55 AM EDT hi,... Stephanie Camp [id number] here seeing Tahmina Samuel LENS SILVERER. She is all annoyed and confused about hermedications, what doses, and such. I think more so, after [facility]. She says that she has been "unsuccessful" in reaching anyone in "that [facility] clinic". BS are also in the 300's. documented in this encounter Plan of Treatment Upcoming Encounters Date Type Specialty Care Team Description 12/29/2020 Home Visit Family Medicine Magaly Morales, [facility] [address] [place] [address] [phone] 01/01/2021 Office Visit Family Medicine Tahmina Samuel CRNP [address] [place] [address] [phone] 01/13/2021 Home Visit [facility] Rema Real LSW [address] [place] [address] [phone] 01/14/2021 Office Visit Family Medicine Kevin Whiteside DO [address] [place] [address] [phone] 01/14/2021 Office Visit Pharmacy [facility] [address] [place] [address] 02/02/2021 Office Visit Cardiology Rey Woodall MD [address] [place] [address] [phone] 03/18/2021 Office Visit Nephrology Erik Lenz MD [address] [facility] [place] [address] [phone] 08/18/2021 Office Visit Pulmonary Celsa Tafoya CRNP [address] [place] [address] [phone] Health Maintenance Due Date Last Done Comments Zoster Vaccines (3 of 3) 01/02/2020 11/07/2019, 11/24 Pneumococcal Vaccine: 65+ Years (1 of 1 - PPSV23) 2020 08/22/2009, 06/15/2006 DIABETES-FOOT EXAM 11/07/2020 11/07/2019, 0 01/01/2019, 12/29/2017, Additional history exists DIABETES-URINE MICROALBUMIN EVERY 12 MONTHS 12/23/2020 12/24/2019, 11/30/2019, 05/24/2019, Additional history exists Yearly B-12 01/22/2021 01/23/2020, 02/24, 05/16/2018 DIABETES-EYE EXAM 04/07/2021 04/07/2020, , 02/24/2010 (Done elsewhere), Additional history exists CKD GFR USE SMARTSET 83107 05/17/202112/25, 11/17/2020, 05/06/2020, Additional history exists DIABETES-HGBA1C EVERY 6 MONTHS 05/17/2021 11/17/2020, 01/23/2020, 11/07/2019, Additional history exists BREAST CANCER SCREENING DISCUSSION YEARLY AGES 40-75 10/01/2021 10/01/2020, 07/10/2019, 06/23/2018, Additional history exists CKD PHOS USE SMARTSET 56945 11/17/202110/28, 12/24/2019, 11/07/2019, Additional history exists CKD HGB USE SMARTSET 80983 12/25/202112/25, 12/25/2020, 11/17/2020, Additional history exists *DEPRESSION SCREENING,ANNUAL FOR PTS 12 AND OVER Addressed 06/12/2018 Overridden with the intention of not completing the topic Influenza Vaccine (FLU shot) Completed 06/13/2020, 07/23/2019, 06/12/2018, Additional history exists MENINGOCOCCAL (MENACTRA/MENVEO) Aged Out No longer eligible based on patient's age to complete this topic documented as of this encounter Implants Not on filedocumented as of this encounter Advance Directives Documents on File Type Date Recorded Patient Manager Recovery Expl 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
--- OUTSIDE RECORDS SUMMARY | 2023-06-01 05:08 | External Medical Summary ---
Author Name Unknown Address Unknown Organization K01[place] [facility] [place] [address] [place] [address] Laboratory Report Ordering Provider Test Date Status NADIAYARIELKait 12/25/2020 10:11:43 Final Observation Date Value Abnormality Reference (Units ) Status Bacteria identified in Unspecified specimen by Culture 12/25/2020 10:11:43 < 10,000 colonies/ml mixed normal jaylin Final Performing Location [facility] [place] [address] [place] [address]
--- OUTSIDE RECORDS SUMMARY | 2023-06-01 05:08 | External Medical Summary | Summary of Care ---
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 1 Each 0 04/08/2020 Active dicyclomine (BENTYL) 20 MG Tablet Take 1 Tab by mouth 4 times a day as needed for Pain, Mild. For abdominal pain 120 Tab 11 05/06/2020 Active Blood Glucose Monitoring Suppl (Ingenious Med ULTRA 2) w/Device KIT Use to test BG values 1 Kit 0 05/20/2020 Active Glucose Blood (Horizon StudiosTOUCH ULTRA BLUE) STRP Check sugars 3-4 times daily, E11.9 400 Strip 3 05/22/2020 Active TRULICITY 1.5 MG/0.5ML SOPNIndications:DM type 2 nursing care encounter ([facility]),Uncontrolled type 2 diabetes mellitus with stage 3 chronic kidney disease, with long-term current use of insulin ([facility]) inject 1.5mg (one pen) under the [...] goal of 7.0%-8.0% ([facility]) Inject up to 30 units with [...] A1c goal of 7.0%-8.0% ([facility]) Take 1 Cap by mouth 3 [...] Encounters Date Type Specialty Care Team Description 01/13/2021 Home Visit [facility] Rema Real LSW [address] [place] [address] [phone] 01/14/2021 Office Visit Family Medicine Kevin Whiteside DO [address] [place] [address] [phone] 01/14/2021 Office Visit Pharmacy [facility], [facility] [place] [address] [place] [address] 01/19/2021 Home Visit [facility] Vera Capellan RN [address] [place] [address] [phone] 02/02/2021 Office Visit Cardiology Rey Woodall MD [address] [place] [address] [phone] 02/27/2021 Home Visit Family Medicine Magaly Morales, [facility] [address] [place], [place] [id number] 03/18/2021 Office Visit Nephrology Erik Lenz MD [address] [place] [address] [phone] 08/18/2021 Office Visit Pulmonary Celsa Tafoya CRNP [address] [place] [address] [phone] Health Maintenance Due Date Last Done Comments [...] Additional history exists CKD GFR USE SMARTSET 34061 06/26/202112/25, 11/17/2020, 05/06/2020, Additional history exists BREAST CANCER SCREENING DISCUSSION YEARLY AGES 40-75 10/01/2021 10/01/2020, 07/10/2019, 06/23/2018, Additional history exists CKD PHOS USE SMARTSET 49431 11/17/202110/28, 12/24/2019, 11/07/2019, Additional history exists CKD HGB USE SMARTSET 91122 12/25/202112/25, 12/25/2020, 11/17/2020, Additional history exists *DEPRESSION [...] Documents on File Type Date Recorded Patient Train Brakeman Expl 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
--- OUTSIDE RECORDS SUMMARY | 2023-06-01 05:08 | External Medical Summary ---
Author Name Unknown Address Unknown Organization K01[place] [place] [address] [place] [address] Laboratory Report Ordering Provider Test Date Status YARIEL ZUNIGAKait 12/25/2020 10:10:41 Final Observation Date Value Abnormality Reference (Units ) Status TSH 12/25/2020 10:10:41 3.88 0.27-4.20 (uIU/mL) Final Performing Location [facility] [place] [address] [place] [address]
--- OUTSIDE RECORDS SUMMARY | 2023-06-01 05:08 | External Medical Summary | Summary of Care ---
Author Name Unknown Organization [place] [address] Care Team Providers Care Director Safety Council Name Role Phone Kevin Whiteside DO Primary Care Provider Reason for Visit * Reason Comments Follow Up Pt being seen for a 1 week F/U apt, has better BP, still has some dizziness on and off. Encounter Details Date Type Department Care Team Description 12/29/2020 Office Visit [facility] [address] [place] [address] Medina Fuentes PA-C [address] [place] [address] Vertigo*; Hyperparathyroidism, secondary renal ([facility]); Gastroesophageal reflux disease with esophagitis without hemorrhage; Chronic diastolic congestive heart failure ([facility]); Type 2 diabetes mellitus with hemoglobin A1c goal of 7.0%-8.0% ([facility]); Anxiety state Allergies Active Allergy Reactions Severity Noted Date Comments Codeine 07/08/2014 hallucination Pollen 05/18/2019 Heparin 09/04/2009 Heparin Induced Thrombocytopenia Hydrocodone Neuro complications (Please comment) 07/28/2020 Empagliflozin Other (Please comment) Medium 05/17/2018 3 yeast infections in 6 weeks after starting Morphine And Related 09/16/1997 Hallucinations Tetanus Toxoid Other (Please comment) 06/15/2011 Passed out documented as of this encounter (statuses as of 12/29/2020) Medications Medication Sig Dispensed Refills Start Date [...] instructions reported), Reported on 12/09/2020 DIURETIC TITRATION PLANIndications:Ch ronic diastolic congestive heart failure (HCC) If no improvement on day 3, contact heart failure managing provider. 1 Each 0 0 Active dicyclomine (BENTYL) 20 MG Tablet Take 1 Tab by mouth 4 times a day as needed for Pain, Mild. For abdominal pain 120 Tab 11 0 Active zoster vac recomb adjuvanted (SHINGRIX) 50 MCG/0.5ML injection Inject 0.5 mL into a large muscle now and repeat dose in 60 to 180 days. Please fax date this was given to our office. (pt already had 1st done in 10/2019 1 Each 0 0 Active Blood Glucose Monitoring Suppl (ONETOUCH ULTRA 2) w/Device KIT Use to test BG values 1 Kit 0 0 Active Glucose Blood (ONETOUCH ULTRA BLUE) STRP Check sugars 3-4 times daily, E11.9 400 Strip 3 0 Active TRULICITY 1.5 MG/0.5ML SOPNIndications:DM type 2 nursing care encounter ([facility]),Uncontrolled type 2 diabetes mellitus with stage 3 chronic kidney disease, with long-term current use of insulin ([facility]) inject 1.5mg (one pen) under the skin once weekly 6 mL 1 0 Active colchicine 0.6 MG TabletIndications: Leukocytoclastic vasculitis (HCC) Take 1/2 tab [...] goal of 7.0%-8.0% (HCC) Inject up to 30 units with meals [...] Active Cyclobenzaprine HCl 10 MG Oral Tablet (FLEXERIL)Indicati ons:Spinal stenosis of lumbar region without neurogenic claudication,Lumba r radiculopathy TAKE ONE TABLET BY MOUTH AT BEDTIME NEEDED FOR SPASM 30 Tab 0 0 Active Levothyroxine Sodium 200 MCG Oral Tablet (LEVOXYL)Indicatio ns:Postsurgical hypothyroidism TAKE ONE TABLET BY MOUTH IN THE MORNING AT LEAST 30 MINUTES PRIOR TO BREAKFAST OR OTHER MEDS 90 Tab 1 0 Active Levothyroxine Sodium 25 MCG Oral Tablet (LEVOXYL)Indicatio ns:Postsurgical hypothyroidism Take 1 tablet every day in the morning (at least 30 min prior to breakfast or other meds) 90 Tab 1 0 Active Nortriptyline HCl 50 MG Oral Capsule (PAMELOR)Indicatio ns:Fibromyalgia TAKE ONE CAPSULE BY MOUTH AT [...] of 7.0%-8.0% ([facility]) Take 1 Cap by mouth [...] 7.0%-8.0% ([facility]) Inject 60 Units under the [...] 2 times a day. 60 Tab 0 04/05/202 1 Active metolazone (ZAROXOLYN) 2.5 MG Tablet Take as directed by physician 5 Tab 0 0 021 Discontinued clonazePAM 0.5 MG Oral Tablet (KlonoPIN)Indicati ons:Anxiety state Take 1 Tab by mouth 2 times a day. 60 Tab 0 1 021 Discontinued(Re fill) documented as of this encounter (statuses as of 12/29/2020) Active Problems Problem Noted Date Hypotension 12/19/2020 [...] 10/14/2014 Overview: ICD-10 update of inactive term [place] filter in place 08/19/2014 History of pulmonary embolus (PE) 2013 Statin intolerance 07/16/2014 HTN, goal below 130/80 02/22/2014 Venous insufficiency 02/07/2013 ELISSA (obstructive sleep apnea) 09/16/2011 Overview: CPAP 11 cwp Mild, AHI 11.3 but with significant nocturnal hypoxemia Dicks Postsurgical hypothyroidism 06/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 documented as of this encounter (statuses as of 12/29/2020) Resolved Problems Problem Noted Date Resolved Date [...] as of this encounter (statuses as of 12/29/2020) Immunizations Name Administration Dates Next Due Pneumococcal [...] Sign Reading Time Taken Comments Blood Pressure 104/82 12/29/2020 9:29 AM EDT Pulse 97 12/29/2020 9:29 AM EDT Temperature 36.2 C (97.2 F) 12/29/2020 9:29 AM ED T Respiratory Rate 16 12/29/2020 9:29 AM EDT Oxygen Saturation - - Inhaled Oxygen Concentration - - Weight 150.6 kg (332 lb) 12/29/2020 9:29 AM EDT Height 162.6 cm (5' 4") 12/29/2020 9:29 AM EDT Body Mass Index 56.99 12/29/2020 9:29 AM EDT documented in this encounter Progress Notes * Medina Fuentes PA-C - 12/29/2020 10:06 AM EDT HPI: Stephanie Camp is a 65 year old female who presents today for short interval follow-up for hypotension. Was seen on 12/25/20 for hypotension. Had her Lasix cut back at that visit from 40 mg twice daily to 20 mg twice daily. Doing okay with it. Blood pressures have improved at home. Getting in the 110s/70s at home. Notes that legs are mildly more edematous. Still getting slightly dizzy. Has to move slowly. If she turns too quickly will bring on some dizziness. Has to sit very still. Does have some nausea associated, but no vomiting. She denies any chest pain, shortness of breath, cough, orthopnea, PND. Recent labs stable. GFR actually improved. Urine culture was negative. ROS: See HPI for positives and negatives. Patient denies additional complaints. PAST MEDICAL HISTORY: Patient Active Problem List Diagnosis Code Dyslipidemia E78.5 ELLIE (generalized anxiety disorder) F41.1 Postsurgical hypothyroidism E89.0 ELISSA (obstructive sleep apnea) G47.33 Venous insufficiency I87.2 HTN, goal below 130/80 I10 History of pulmonary embolus (PE) Z86.711 Statin intolerance Z78.[address] Z95.828 Type 2 diabetes mellitus with hemoglobin A1c goal of 7.0%-8.0% ([facility]) E11.9 Fibromyalgia M79.7 Abnormality of gait R26.9 Restless legs syndrome G25.81 Gastroesophageal reflux disease with esophagitis K21.00 Morbid obesity with BMI of 50.0-59.9, adult ([facility]) E66.01, Z68.43 Controlled substance agreement signed Z79.899 Chronic diastolic congestive heart failure ([facility]) I50.32 Mild episode of recurrent major depressive disorder ([facility]) F33.0 Lumbar radiculopathy M54.16 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, NYHA class 1 and CKD stage 3 ([facility]) I13.0, I50.30, N18.30 Hyperparathyroidism, secondary renal ([facility]) N25.81 Vasculitis ([facility]) I77.6 Primary osteoarthritis of left knee M17.12 Spinal stenosis of lumbar region without neurogenic claudication M48.061 Hypotension I95.9 Past Surgical History: Procedure Laterality Date ARTHROPLASTY KNEE TOTAL Right 07/24/14 R COLONOSCOPY, DIAGNOSTIC (RECTUM) 02/18/2016 normal, repeat 10 yrs/[facility] COLONOSCOPY, GI REFERRAL OP 01/28/06 diverticulosis--repeat 10 years INCISION OF [place], PLANNED 06/03/2011 TRACHEOSTOMY PLANNED performed by DANNY HOLDER [place] [facility] [place] INJECT DX/THER SUBSTANCE INTERLAMINAR LUMBAR/SACRAL W IMAGE GUIDE 05/26/2020 INJECTION SPINE LUMBAR OR SACRAL performed by Raj Ahn DO at OR [facility] KNEE ARTHROSCOPY/DEBRIDEMENT 07/[address] PERMANENT GASTROSTOMY TUBE 09/06/09 GASTROSTOMY WITH CONSTUCTION GASTRIC TUBE performed by AMADOU NUNEZ at [place] [facility] [place] REMOVAL OF THYROID GLAND 06/15/2011 THYROIDECTOMY INCLUDING SUBSTERNAL THYROID CERVICAL APPROACH performed by DANNY HOLDER at [place] [facility] [place] REMOVE GALLBLADDER 09/06/09 CHOLECYSTECTOMY performed by AMADOU NUNEZ at [place] [facility] [place] REPAIR RECURRENT INCISIONAL HERNIA 1998 REVISION OF COLOSTOMY, SIMPLE 1997 SACROILIAC JOINT INJECT W/GUIDANCE 07/28/2020 INJECTION SACROILIAC JOINT performed by Raj Ahn DO at OR [facility] SUTURE, LARGE INTESTINE W/COLOSTOMY 1996 perforation R colon with colostomy VENA CAVA FILTER/LIGATION/CLIP 08/19/09 Frank filter placement through the right femoral 08/19/[address] Lerma at [facility] Review of patient's allergies indicates: Allergen Reactions Jardiance [Empagliflozin] Other (Please comment) 3 yeast infections in 6 weeks after starting Codeine hallucination Hay Fever [Pollen] Heparin Heparin Induced Thrombocytopenia Hydrocodone Neuro complications (Please comment) Morphine And Related Hallucinations Tetanus Toxoid Other (Please comment) Passed out Current Outpatient Medications Medication Sig Dispense Refill Meclizine HCl 12.5 MG Oral Tablet (Antivert) Take 1 Tab by mouth 3 times a day as needed for Dizziness. 30 Tab 1 Ondansetron HCl 4 MG Oral Tablet (Zofran) Take 1 Tab by mouth every 6 hours as needed for Nausea. 30 Tab 0 Tresiba FlexTouch 100 UNIT/ML Subcutaneous Solution Pen-injector (Insulin Degludec) Inject 60 Units under the skin daily. 45 mL 3 rOPINIRole HCl 2 MG Oral Tablet (Requip) Take 1 Tab by mouth at bedtime. 90 Tab 3 clonazePAM 0.5 MG Oral Tablet (KlonoPIN) [...] BREAKFAST OR OTHER MEDS 90 Tab 1 Levothyroxine Sodium 25 MCG Oral Tablet (LEVOXYL) Take 1 tablet every day in the morning (at least 30 min prior to breakfast or other meds) 90 Tab 1 Magnesium Oxide 400 (241.3 [...] once weekly 6 mL 1 Glucose Blood ([place] OasisTOUCH ULTRA BLUE) STRP Check sugars 3-4 times daily, E11.9 400 Strip 3 Blood Glucose Monitoring Suppl ([place] OasisTOUCH ULTRA 2) w/Device KIT Use to test [...] by mouth at bedtime. 90 Tab 3 ONETOUCH DELICA LANCETS 33G MISC Check blood sugars 3-4 times daily 180 Each 5 Furosemide 40 MG Oral Tablet (Lasix) Take 0.5 Tabs by mouth 2 times a day. 180 Tab 3 Acetaminophen 500 MG Oral Tablet (Acetaminophen Extra Strength) Take 500 mg by mouth every 6 hours as needed. Lidocaine 5 % External Patch (Lidoderm) Place 1 Patch topically on the skin daily. Nortriptyline HCl 50 MG Oral Capsule (PAMELOR) TAKE ONE CAPSULE BY MOUTH AT BEDTIME (Patient takingdifferently: Take 50 mg by mouth at bedtime.) 90 Cap 1 Cyclobenzaprine HCl 10 MG Oral Tablet (FLEXERIL) TAKE ONE TABLET BY MOUTH AT BEDTIME NEEDED FOR SPASM 30 Tab 0 zoster vac recomb adjuvanted (SHINGRIX) 50 MCG/0.5ML injection Inject 0.5 mL into a large muscle now and repeat dose in 60 to 180 days. Please fax date this was given to our office. (pt already had 1st done in 10/2019 1 Each 0 dicyclomine (BENTYL) 20 MG Tablet Take 1 Tab by mouth 4 times a day as needed for Pain, Mild. For abdominal pain 120 Tab 11 oxygen GAS 2 LPM bled through CPAP 11 cwp during all periods of sleep and 2 LPM via NC with exertion. docusate sodium (STOOL SOFTENER) 100 MG Capsule Take 100 mg by mouth 2 times a day as needed for Constipation. Nursing Notes: Linda Dexter LPN 12/29/20 0931 Signed Chief Complaint Patient presents with Follow Up Pt being seen for a 1 week F/U apt, has better BP, still has some dizziness on and off. EXAM: BP 104/82 | Pulse 97 | Temp 36.2 C (97.2 F) (Tympanic) | Resp 16 | Ht (!) 1.626 m (5' 4") | Wt (!) 150.6 kg (332 lb) | LMP 03/11/2003 | BMI 56.99 kg/m | BSA 2.61 m GENERAL: alert,non toxic HEAD: Normocephalic, atraumatic EYES: PERRL, EOMI, Conjunctiva are pink and non-injected, sclera clear EARS: External ears normal, Canals clear, TM's clear with good cone of light NOSE: no purulent discharge, no sinus tenderness, no mucosal erythema or edema OROPHARYNX: no exudate, no erythema, lips, buccal mucosa, and tongue normal and mucous membranes are moist NECK: supple, no adenopathy HEART: regular rate & rhythm, no murmurs and no gallops LUNGS: clear to auscultation bilaterally, no wheezing, rales or rhonchi ABDOMEN: abdomen soft, non-tender, normal bowel sounds and no masses or organomegaly SKIN: skin color, texture, turgor are normal NEURO: no focal deficits. EXT: 1+ edema ASSESSMENT/PLAN Vertigo (Primary) - Meclizine HCl 12.5 MG Oral Tablet (Antivert); Take 1 Tab by mouth 3 times a day as needed for Dizziness. - Ondansetron HCl 4 MG Oral Tablet (Zofran); Take 1 Tab by mouth every 6 hours as needed for Nausea. Hyperparathyroidism, secondary renal (HCC) Stable Gastroesophageal reflux disease with esophagitis without hemorrhage Stable. On omeprazole. Hyperlipidemia, unspecified Chronic diastolic congestive heart failure (HCC) Continue furosemide 40 mg 1/2 tab 2 times daily Type 2 diabetes mellitus with hemoglobin A1c goal of 7.0%-8.0% ([facility]) Working with MTM. Glucose improving at home. Anxiety state - clonazePAM 0.5 MG Oral Tablet (KlonoPIN); Take 1 Tab by mouth 2 times a day. F/u as planned. There are no Patient Instructions on file for this visit. Medina Fuentes PA-C [facility] [address] [place] [address] This chart was completed in part utilizing [employer] Speech Voice Recognition Software. Grammatical errors, random word insertions, prounoun errors, and incomplete sentences are an occasional consequence of this system due to software limitations, ambient noise, and hardware issues. Any formal questions or concerns about the content, text, or information contained within the body of this dictation should be directly addressed to the provider for clarification. documented in this encounter Nursing Notes * Linda Dexter LPN - 12/29/2020 9:27 AM EDT Chief Complaint Patient presents with Follow Up Pt being seen for a 1 week F/U apt, has better BP, still has some dizziness on and off. documented in this encounter Plan of Treatment Upcoming Encounters Date Type Specialty Care Team Description 01/01/2021 Office Visit Family Medicine Tahmina Samuel CRNP [address] [place] [address] [phone] 01/13/2021 Home Visit [facility] Rema Real LSW [address] [place] [address] [phone] 01/14/2021 Office Visit Family Medicine Kevin Whiteside DO [address] [facility] [place] [address] [phone] 01/14/2021 Office Visit Pharmacy [facility] [place] [address] [facility] [place] [address] 02/02/2021 Office Visit Cardiology Rey Woodall MD [address] [place] [address] [phone] 03/18/2021 Office Visit Nephrology Erik Lezn MD [address] [place] [address] [phone] 08/18/2021 Office Visit Pulmonary Celsa Tafoya CRNP [address] [facility] [place] [address] [phone] Health Maintenance Due Date Last Done Comments [...] Additional history exists CKD GFR USE SMARTSET 92353 06/26/202112/25, 11/17/2020, 05/06/2020, Additional history exists BREAST CANCER SCREENING DISCUSSION YEARLY AGES 40-75 10/01/2021 10/01/2020, 07/10/2019, 06/23/2018, Additional history exists CKD PHOS USE SMARTSET 20519 11/17/202110/28, 12/24/2019, 11/07/2019, Additional history exists CKD HGB USE SMARTSET 23095 12/25/202112/25, 12/25/2020, 11/17/2020, Additional history exists *DEPRESSION [...] as of this encounter Visit Diagnoses Diagnosis Vertigo- Primary Dizziness and giddiness Hyperparathyroidism, secondary renal (HCC) Secondary hyperparathyroidism (of renal origin) Gastroesophageal reflux disease with esophagitis without hemorrhage Chronic diastolic congestive heart failure (HCC) Chronic diastolic heart failure Type 2 diabetes mellitus with hemoglobin A1c goal of 7.0%-8.0% (HCC) Anxiety state Anxiety state, unspecified documented in this encounter Advance Directives Documents on File Type Date Recorded Patient Content Writer Expl 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
--- OUTSIDE RECORDS SUMMARY | 2023-06-01 05:08 | External Medical Summary ---
Author Name Unknown Address Unknown Organization [id number][facility] [address] [place] [address] Laboratory Report Ordering Provider Test Date Status AHMET ZUNIGA 12/25/2020 10:10:41 Final Observation Date Value Abnormality Reference (Units ) Status WBC, Total 12/25/2020 10:10:41 9.17 4.00-10.8 0 (K/uL) Final RBC 12/25/2020 10:10:41 4.58 3.85-5.15 (M/uL) Final Hemoglobin 12/25/2020 10:10:41 13.9 12.0-15.3 (g/dL) Final HCT 12/25/2020 10:10:41 43.9 36.0-45.2 (%) Final MCV 12/25/2020 10:10:41 95.9 81.5-97.5 (fL) Final MCH 12/25/2020 10:10:41 30.3 27.0-34.0 (pg) Final MCHC 12/25/2020 10:10:41 31.7 Below low normal 32. 0-36.0 (g/dL) Final RDW 12/25/2020 10:10:41 14.3 11.5-15.5 (%) Final Platelets 12/25/2020 10:10:41 261 140-400 (K /uL) Final MPV 12/25/2020 10:10:41 9.7 6.6-11.1 ( fL) Final Performing Location [facility] [place] [address] [place] [address]
--- OUTSIDE RECORDS SUMMARY | 2023-06-01 05:08 | External Medical Summary | Summary of Care ---
Author Name Unknown Organization [place] [address] Care Team Providers Care Chief Dispatcher Service Name Role Phone Carey Whitesidelidia Ocampomelinda Primary Care Provider Reason for Visit * Reason Comments Hypotension BP CAN BE UP/DOWN, M OSTLY DOWN. BS READINS ARE HIGH: 300'S Encounter Details Date Type Department Care Team Description 12/25/2020 [facility] Visit [facility] [address] 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 diastolic congestive heart failure (HCC) [...] MG/0.5ML SOPNIndications:DM type 2 nursing care encounter ([facility]),Uncontrolled type 2 diabetes mellitus with stage 3 chronic kidney disease, with long-term current use of insulin ([facility]) inject 1.5mg (one pen) under the skin [...] Overview: ICD-10 update of inactive term [place] filter in place 08/19/2014 History of pulmonary [...] Sign Reading Time Taken Comments Blood Pressure 94/58 12/25/2020 9:13 AM EDT Pulse 96 12/25/2020 9:13 AM EDT Temperature 35.4 C (95.7 F) 12/25/2020 9:13 AM ED T Respiratory Rate - - Oxygen Saturation 91% 12/25/2020 9:13 AM EDT Inhaled Oxygen Concentration - - Weight 151.2 kg (333 lb 4 oz) 12/25/2020 9:13 AM EDT Height - - Body Mass Index 57.2 07/15/2020 7:39 AM EDT documented in this encounter Progress Notes * Tahmina SamuelTATIANA - 12/25/2020 9:18 AM EDT Follow up Family Medicine Visit CC: "LOW BLOOD PRESSURE" History of Present Illness: Stephanie Camp is a 65 year old female presenting for follow up of hypotension. Last seen via telemed appt last week. [facility] has been seeing her regularly. Most recent change was earlier this week with reduction of lasix to 40 mg po daily. 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 Employer: [employer] [facility] Social Needs Financial resource strain: Not on file Food insecurity Worry: Never true Inability: Never true Transportation needs Medical: Not on file Non-medical: Not on file Tobacco Use Smoking status: Former Smoker Packs/day: 1.00 Years: 15.00 Pack years: 15.00 Quit date: 08/26/1997 Years since quittin.3 Smokeless tobacco: Never Used Substance and Sexual Activity Alcohol use: Not Currently Comment: rare Drug use: No Sexual activity: Not Currently Lifestyle Physical activity Days per week: Not on file Minutes per session: Not on file Stress: Not on file Relationships Social connections Talks on phone: Not on file Gets together: Not on file Attends pentecostal service: Not on file Active member of [...] file Social History Narrative 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 [employer] Vaping/E-Cigarette Use Vaping/E-Cigarette Use Never User Vaping/E-Cigarette Substances Vaping/E-Cigarette Devices PMH: Past Medical History: Diagnosis Date ELSIE (acute kidney injury) ([facility]) 06/12/2018 Allergic rhinitis due to other allergen Backache Diverticulosis of colon 01/28/06 DM type 2, not at goal ([facility]) ELLIE (generalized anxiety disorder) 09/13/2009 Goiter Frank [...] COLONOSCOPY, DIAGNOSTIC (RECTUM) 02/18/2016 normal, repeat 10 yrs/[facility] COLONOSCOPY, GI REFERRAL OP 01/28/06 diverticulosis--repeat 10 years INCISION OF WINDPIPE, PLANNED 06/03/2011 TRACHEOSTOMY PLANNED performed by DANNY HOLDER at OR [facility] INJECT DX/THER SUBSTANCE INTERLAMINAR LUMBAR/SACRAL W IMAGE GUIDE 05/26/2020 INJECTION SPINE LUMBAR OR SACRAL performed by Raj Ahn DO at OR [facility] KNEE ARTHROSCOPY/DEBRIDEMENT 07/[address] PERMANENT GASTROSTOMY TUBE 09/06/09 GASTROSTOMY WITH CONSTUCTION GASTRIC TUBE performed by AMADOU NUNEZ at [facility] REMOVAL OF THYROID GLAND 06/15/2011 THYROIDECTOMY INCLUDING SUBSTERNAL THYROID CERVICAL APPROACH performed by DANNY HOLDER at [facility] REMOVE GALLBLADDER 09/06/09 CHOLECYSTECTOMY performed by AMADOU NUNEZ at [facility] REPAIR RECURRENT INCISIONAL HERNIA 1998 REVISION OF COLOSTOMY, SIMPLE 1997 SACROILIAC JOINT INJECT W/GUIDANCE 07/28/2020 INJECTION SACROILIAC JOINT performed by Raj Ahn DO at OR [facility] SUTURE, LARGE INTESTINE W/COLOSTOMY 1996 perforation R colon with colostomy VENA CAVA FILTER/LIGATION/CLIP 08/19/09 Frank filter placement through the right femoral 08/19/[address] Lerma at [facility] Outpatient Medications Marked as Taking for the 12/25/20 encounter (Office Visit) with TATIANA Silveira Medication Sig Furosemide 40 MG Oral Tablet (Lasix) Take 0.5 Tabs by mouth 2 times a day. Tresiba FlexTouch 100 UNIT/ML Subcutaneous Solution Pen-injector (Insulin Degludec) Inject 60 Units under the skin daily. Acetaminophen 500 MG Oral Tablet (Acetaminophen Extra Strength) Take 500 mg by mouth every 6 hours as needed. Lidocaine 5 % External Patch (Lidoderm) Place 1 Patch topically on the skin daily. rOPINIRole HCl 2 MG Oral Tablet (Requip) Take 1 Tab by mouth at bedtime. clonazePAM 0.5 MG Oral Tablet (KlonoPIN) Take 1 Tab by mouth 2 times a day. Gabapentin 300 MG Oral Capsule (Neurontin) Take 1 Cap by mouth 3 times a day. traMADol HCl 50 MG Oral Tablet (Ultram) Take 1 Tab by mouth every 8 hours as needed for Pain, Severe. DULoxetine HCl 60 MG Oral Capsule Delayed Release Particles (CYMBALTA) Take 1 Cap by mouth daily. Along with 30 mg capsule to total 90 mg daily. Nortriptyline HCl 50 MG Oral Capsule (PAMELOR) TAKE ONE CAPSULE BY MOUTH AT BEDTIME (Patient taking differently: Take 50 mg by mouth at bedtime.) Levothyroxine Sodium 200 MCG Oral Tablet (LEVOXYL) TAKE ONE TABLET BY MOUTH IN THE MORNING AT LEAST 30 MINUTES PRIOR TO BREAKFAST OR OTHER MEDS Levothyroxine Sodium 25 MCG Oral Tablet (LEVOXYL) Take 1 tablet every day in the morning (at least 30 min prior to breakfast or other meds) Cyclobenzaprine HCl 10 MG Oral Tablet (FLEXERIL) TAKE ONE TABLET BY MOUTH AT BEDTIME NEEDED FOR SPASM Magnesium Oxide 400 (241.3 Mg) MG Oral Tablet Take 400 mg by mouth daily. NovoLOG FlexPen 100 UNIT/ML Subcutaneous Solution Pen-injector (insulin aspart) Inject up to 30units with meals plus sliding scale as directed by diabetes clinic BD Pen Needle Short U/F 31G X 8 MM (Insulin Pen Needle) Use 5 times daily with insulin clobetasol propionate (TEMOVATE) 0.05 % cream Apply to rash on the hands and dorsal feet twice daily x 1 week, then as needed for flares. colchicine 0.6 MG Tablet Take 1/2 tab daily TRULICITY 1.5 MG/0.5ML SOPN inject 1.5mg (one pen) under the skin once weekly Glucose Blood (ONETOUCH ULTRA BLUE) STRP Check sugars 3-4 times daily, E11.9 Blood Glucose Monitoring Suppl (ONETOUCH ULTRA 2) w/Device KIT Use to test BG values zoster vac recomb adjuvanted (SHINGRIX) 50 MCG/0.5ML injection Inject 0.5 mL into a large muscle now and repeat dose in 60 to 180 days. Please fax date this was given to our office. (pt already had 1st done in 10/2019 dicyclomine (BENTYL) 20 MG Tablet Take 1 Tab by mouth 4 times a day as needed for Pain, Mild. For abdominal pain DIURETIC TITRATION PLAN If no improvement on day 3, contact heart failure managing provider. metolazone (ZAROXOLYN) 2.5 MG Tablet Take as directed by physician potassium chloride ER 10 MEQ TBCR Take one 3 days per week (Patient taking differently: Take 10mEq by mouth daily.) ACCU-CHEK SOFTCLIX LANCETS MISC Test blood sugar three or four times daily as directed omeprazole (PRILOSEC) 20 MG CPDR Take 1 Cap by mouth daily. traZODone (DESYREL) 50 MG Tablet Take 1 Tab by mouth at bedtime. oxygen GAS 2 LPM bled through CPAP [...] Other (Please comment) Passed out Most Recent Immunizations Administered Date(s) Administered Pneumococcal Polysaccharide PPV23 (Pneumovax) 08/22/2009 Seasonal Influenza, Quadrivalent, No Preserve, 6 Mons & Above, IM 07/23/2019 Seasonal Influenza, Quadrivalent, No Preserve, Adjuvanted, 65+ Yrs, IM 06/13/2020 Seasonal Influenza, Quadrivalent, No Preserve, IM 06/24/2016 Seasonal Influenza, Trivalent, with Preserve, 3yr & Above, Split 06/13/2014 Varicella Zoster Vaccine (Adult) 12/11/2015 Zoster Vaccine Recombinant (Shingrix) 11/07/2019 Review of Systems: Review of Systems Constitutional: Positive for fatigue. Negative for chills, diaphoresis and fever. HENT: Negative for congestion. Respiratory: Negative for cough, chest tightness, shortness of breath and wheezing. Cardiovascular: Positive for leg swelling. Negative for chest pain and palpitations. Gastrointestinal: Negative for abdominal pain, blood in stool, diarrhea, nausea and vomiting. Genitourinary: Positive for dysuria and frequency. Negative for hematuria, pelvic pain and urgency. Musculoskeletal: Negative for arthralgias. Neurological: Positive for dizziness. Negative for syncope. Psychiatric/Behavioral: Positive for sleep disturbance. Negative for decreased concentration. The patient is nervous/anxious. Physical Exam: BP 94/58 | Pulse 96 | Temp 35.4 C (95.7 F) (Tympanic) | Wt (!) 151.2 kg (333 lb 4 oz) | LMP 03/11/2003 | SpO2 91% | BMI 57.20 kg/m | BSA 2.61 m Physical Exam Constitutional: Appearance: She is obese. HENT: Head: Normocephalic. Eyes: Pupils: Pupils are equal, round, and reactive to light. Neck: Musculoskeletal: Normal range of motion. Cardiovascular: Rate and Rhythm: Regular rhythm. Pulmonary: Effort: Pulmonary effort is normal. Breath sounds: Examination of the right-lower field reveals decreased breath sounds. Examination ofthe left-lower field reveals decreased breath sounds. Decreased breath sounds present. Musculoskeletal: Right lower le+ Pitting Edema present. Left lower le+ Pitting Edema present. Skin: General: Skin is warm and dry. Neurological: Mental Status: She is alert and oriented to person, place, and time. Psychiatric: Attention and Perception: Attention normal. Mood and Affect: Mood is anxious. Affect is tearful. Speech: Speech normal. Behavior: Behavior normal. Behavior is cooperative. Thought Content: Thought content normal. Cognition and Memory: Cognition and memory normal. Judgment: Judgment normal. Assessment and Plan: 1. Hypotension, unspecified hypotension type Present for 2-3 weeks with intermittent symptoms of dizziness Now on 20 mg lasix bid Check labs today 2. Chronic diastolic congestive heart failure (HCC) Check daily weights Symptoms of leg swelling, weight gain and verduzco stable - BASIC METABOLIC PANEL; Future - MAGNESIUM; Future 3. Anxiety state Will defer med adjustments for mood to PCP 4. Dysuria Leuks only on U/A - CBC WITH WBC DIFFERENTIAL; Future - URINALYSIS, POINT OF CARE (ENTER/EDIT) - CULTURE, URINE, QUANTITATIVE 5. Postsurgical hypothyroidism - TSH WITH FREE T4 IF INDICATED; Future I have advised the patient to call our office incase of any worsening or new symptoms. A total of 40 minutes were spent with the patient, more than half in [id number] explanation and discussion of the condition and treatment and answering questions. Mitchell, MSN, TATIANA [facility] documented in this encounter Plan of Treatment Upcoming Encounters Date Type Specialty Care Team Description 12/29/2020 Home Visit Family Medicine Magaly Morales, Community Health Sensitometrist [address], [place] [id number] 01/01/2021 Office Visit Family Medicine Tahmina Samuel CRNP [address] [place] [address] [phone] 01/13/2021 Home Visit [facility] Rema Real, ELISABET [address] [place] [address] [phone] 01/14/2021 Office Visit Family Medicine Kevin Whiteside DO [address] [place] [address] [phone] 01/14/2021 Office Visit Pharmacy [facility] [address] [place] [address] 02/02/2021 Office Visit Cardiology Rey Woodall MD [address] [place] [address] [phone] 03/18/2021 Office Visit Nephrology Erik Lenz MD [address] [place] [address], [place] [address] [phone] 08/18/2021 Office Visit Pulmonary Celsa Tafoya CRNP [address] [place] [address] [phone] Pending Results Name Type Priority Associated Diagnoses Date /Time TSH WITH FREE T4 IF INDICATED Lab Routine Postsurgical hypothyroidism 12/25/2020 10:10 AM EDT MAGNESIUM Lab Routine Chronic diastolic congestive heart failure (HCC) 12/25/2020 10:10 AM EDT CULTURE, URINE, QUANTITATIVE Lab Routine Dysuria 12/25/2020 10:11 AM EDT Scheduled Orders Name Type Priority Associated Diagnoses Orde r Schedule TSH WITH FREE T4 IF INDICATED Lab Routine Postsurgical hypothyroidism Expected: 12/25/2020 (Approximate), Expires: 12/25/2021 URINALYSIS, POINT OF CARE (ENTER/EDIT) Point of Care Testing Routine Dysuria Ordered: 12/25/2020 MAGNESIUM Lab Routine Chronic diastolic congestive heart failure (HCC) Expected: 12/25/2020 (Approximate), Expires: 12/25/2021 Health Maintenance Due Date Last Done Comments [...] Additional history exists CKD GFR USE SMARTSET 02121 06/26/202112/25, 11/17/2020, 05/06/2020, Additional history exists BREAST CANCER SCREENING DISCUSSION YEARLY AGES 40-75 10/01/2021 10/01/2020, 07/10/2019, 06/23/2018, Additional history exists CKD PHOS USE SMARTSET 18055 11/17/202110/28, 12/24/2019, 11/07/2019, Additional history exists CKD HGB USE SMARTSET 94381 12/25/202112/25, 12/25/2020, 11/17/2020, Additional history exists *DEPRESSION [...] filedocumented as of this encounter Results * BASIC METABOLIC PANEL (12/25/2020 10:10 AM EDT) BUN 28(H) 6 - 20 mg/dL [facility] [place] [facility] Creatinine 1.4(H) 0.5 - 1.0 mg/dL [facility] [place] [facility] Estimated Glomerular Filtration Rate 39.5(L)Comment:If patient is , multiply estimated GFR by 1.159. >=60.0 mL/min [facility] [place] [facility] Sodium 137 135 - 146 mmol/L [facility] [place] [facility] Potassium 4.4 3.5 - 5.1 mmol/L [facility] [place] [facility] Chloride 95(L) 98 - 107 mmol/L [facility] [place] [facility] CO2 30 22 - 32 mmol/L [facility] [place] [facility] Anion Gap 12 7 - 15 mmol/L [facility] [place] [facility] [facility] Glucose 304(H) 70 - 120 mg/dL [facility] [place] [facility] Calcium 9.7 8.4 - 10.2 mg/dL [facility] [place] [facility] Specimen Blood - Venous blood specime n (specimen) [facility] [place] [facility] [address] [place] [address] documented in this encounter Visit Diagnoses Diagnosis Hypotension, unspecified hypotension type- Primary Chronic diastolic congestive heart failure (HCC) Chronic diastolic heart failure Anxiety state Anxiety state, unspecified Dysuria Postsurgical hypothyroidism documented in this encounter Advance Directives Documents on File Type Date Recorded Patient Post Exchange Manager Expl 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
--- OUTSIDE RECORDS SUMMARY | 2023-06-01 05:08 | External Medical Summary | Summary of Care ---
Author Name Unknown Organization [place] [address] Care Team Providers Care Patient Financial Specialist Name Role Phone Whiteside Kevin Gonzalez DO Primary Care Provider Reason for Visit * Reason Comments [facility]: Acute Encounter Details Date Type Department Care Team Description 12/23/2020 Home Visit Care Coordination [address] [place], [place] [id number] Magaly Morales, Community Health Personalized Living Manager [address], [place] [phone] Allergies Active Allergy Reactions Severity Noted Date Comments Codeine 07/08/2014 hallucination Pollen 05/18/2019 Heparin 09/04/2009 Heparin Induced Thrombocytopenia Hydrocodone Neuro complications (Please comment) 07/28/2020 Empagliflozin Other (Please comment) Medium 05/17/2018 3 yeast infections in 6 weeks after starting Morphine And Related 09/16/1997 Hallucinations Tetanus Toxoid Other (Please comment) 06/15/2011 Passed out documented as of this encounter (statuses as of 12/26/2020) Medications Medication Sig Dispensed Refills Start Date [...] instructions reported), Reported on 12/09/2020 DIURETIC TITRATION 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) Inject up to 30 units [...] as of this encounter (statuses as of 12/26/2020) Active Problems Problem Noted Date Hypotension 12/19/2020 [...] as of this encounter (statuses as of 12/26/2020) Resolved Problems Problem Noted Date Resolved Date [...] as of this encounter (statuses as of 12/26/2020) Immunizations Name Administration Dates Next Due Pneumococcal [...] Sign Reading Time Taken Comments Blood Pressure 96/70 12/23/2020 10:25 AM EDT Pulse 82 12/23/2020 10:25 AM EDT Temperature 36.6 C (97.8 F) 12/23/2020 10:25 AM E DT Respiratory Rate 20 12/23/2020 10:25 AM EDT Oxygen Saturation 96% 12/23/2020 10:25 AM EDT Inhaled Oxygen Concentration - - Weight - - Height - - Body Mass Index - - documented in this encounter Progress Notes * Magaly Morales, Community Health Personalized Living Manager - 12/23/2020 10:57 AM EDT Community Health Personalized Living Manager Visit Date: 12/23/2020 Time: 10:57 AM Name: Stephanie Camp : 1955 Source of Information: Patient COVID-19 screening completed: Yes Vitals: Vital signs completed: Yes, abnormal values, escalated to nurse/provider: Low P/B ongoing BP 96/70 (BP Site: Right Arm, BP Position: Sitting) | Pulse 82 | Temp 36.6 C (97.8 F) | Resp 20| LMP 03/11/2003 | SpO2 96% Reports dizziness has subsided from yesterday Patient stated her BSG Was 306 this am. She is having trouble controlling. Follow Up: Patient encouraged to call the intake phone number for all urgent but not emergent issues. Scheduled to follow up with patient on 12/29/2020 [facility] Personalized Living Manager 12/23/2020 10:57 AM documented in this encounter Plan of Treatment Upcoming Encounters Date Type Specialty Care Team Description 12/29/2020 Home Visit Family Medicine Magaly Morales Community Health Personalized Living Manager [address], [place] [phone] 01/01/2021 Office Visit Family Medicine Tahmina Samuel CRNP [address] [place] [id number] 01/13/2021 Home Visit [facility] Rema Real LSW [address] [place] [address] [phone] 01/14/2021 Office Visit Family Medicine Kevin Whiteside DO [address] [place] [address] [phone] 01/14/2021 Office Visit Pharmacy Danuta Ordaz [address] [place] [address] 02/02/2021 Office Visit Cardiology Rey Woodall MD [address] [place] [address] [phone] 03/18/2021 Office Visit NephErik Valiente MD [address] [place], [place] [address] [phone] 08/18/2021 Office Visit Pulmonary Celsa Tafoya CRNP [address] [place] [address] [phone] Health Maintenance Due Date Last Done Comments [...] Additional history exists CKD GFR USE SMARTSET 01026 06/26/202112/25, 11/17/2020, 05/06/2020, Additional history exists BREAST CANCER SCREENING DISCUSSION YEARLY AGES 40-75 10/01/2021 10/01/2020, 07/10/2019, 06/23/2018, Additional history exists CKD PHOS USE SMARTSET 22507 11/17/202110/28, 12/24/2019, 11/07/2019, Additional history exists CKD HGB USE SMARTSET 93615 12/25/202112/25, 12/25/2020, 11/17/2020, Additional history exists *DEPRESSION [...] Documents on File Type Date Recorded 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
--- OUTSIDE RECORDS SUMMARY | 2023-06-01 05:08 | External Medical Summary ---
Author Name Unknown Address Unknown Organization [id number]:[facility] [place] [id number] Laboratory Report Ordering Provider Test Date Status AHMET ZUNIGA 12/25/2020 10:10:41 Final Observation Date Value Abnormality Reference (Units ) Status Nucleated erythrocytes/100 leukocytes [Ratio] in Blood by Automated count 12/25/2020 10:10:41 Final Performing Location [facility] [place] [facility] 0 - [address] [place] [id number]
--- OUTSIDE RECORDS SUMMARY | 2023-06-01 05:08 | External Medical Summary ---
Author Name Unknown Address Unknown Organization [id number]:[facility] [place] [facility] [place] [address] Laboratory Report Ordering Provider Test Date Status YARIEL ZUNIGAKait 12/25/2020 10:10:41 Final Observation Date Value Abnormality Reference (Units ) Status BUN 12/25/2020 10:10:41 28 Above high normal 6-20 (mg/dL) Final Creatinine 12/25/2020 10:10:41 1.4 Above high normal 0.5-1.0 (mg/dL) Final Glomerular filtration rate/1.73 sq M.predicted [Volume Rate/Area] in Serum, Plasma or Blood by Creatinine-based formula (CKD-EPI) 12/25/2020 10:10:41 39.5 Below low normal >=60.0 (mL/min) Final Performing Location [facility] [place] [facility] 0 - [address] [place] [address]
--- OUTSIDE RECORDS SUMMARY | 2023-06-01 05:08 | External Medical Summary ---
Author Name Unknown Address Unknown Organization K01:[facility] - [address] [place] [address] Laboratory Report Ordering Provider Test Date Status AHMET ZUNIGA 12/25/2020 10:10:41 Final Observation Date Value Abnormality Reference (Units ) Status Magnesium 12/25/2020 10:10:41 1.8 1.5-2.6 (m g/dL) Final Performing Location [facility] - [address] [place] [address]
--- OUTSIDE RECORDS SUMMARY | 2023-06-01 05:08 | External Medical Summary | Summary of Care ---
Author Name Unknown Organization [place] [address] Care Team Providers Care Sample Builder Name Role Phone Whiteside Kevin Gonzalez DO Primary Care Provider Reason for Visit * Reason Comments [facility]: Maintenance Encounter Details Date Type Department Care Team Description 12/31/2020 Home Visit Care Coordination [address], [place] [id number] Magaly Morales, Community Health Customer Relationship Specialist [address], [place] [id number] Allergies Active Allergy Reactions Severity Noted Date Comments Codeine 07/08/2014 hallucination Pollen 05/18/2019 Heparin 09/04/2009 Heparin Induced Thrombocytopenia Hydrocodone Neuro complications (Please comment) 07/28/2020 Empagliflozin Other (Please comment) Medium 05/17/2018 3 yeast infections in 6 weeks after starting Morphine And Related 09/16/1997 Hallucinations Tetanus Toxoid Other (Please comment) 06/15/2011 Passed out documented as of this encounter (statuses as of 12/31/2020) Medications Medication Sig Dispensed Refills Start Date [...] instructions reported), Reported on 12/09/2020 DIURETIC TITRATION PLANIndications:Chain Person zahra diastolic congestive heart failure (HCC) If [...] of 7.0%-8.0% ([facility]) Take 1 Cap by [...] as of this encounter (statuses as of 12/31/2020) Active Problems Problem Noted Date Hypotension 12/19/2020 [...] 10/14/2014 Overview: ICD-10 update of inactive term Sargent filter in place 08/19/2014 History of pulmonary embolus (PE) 2013 Statin intolerance 07/16/2014 HTN, goal below 130/80 02/22/2014 Venous insufficiency 02/07/2013 ELISSA (obstructive sleep apnea) 09/16/2011 Overview: CPAP 11 cwp Mild, AHI 11.3 but with significant nocturnal hypoxemia Dicks Postsurgical hypothyroidism 06/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 documented as of this encounter (statuses as of 12/31/2020) Resolved Problems Problem Noted Date Resolved Date [...] as of this encounter (statuses as of 12/31/2020) Immunizations Name Administration Dates Next Due Pneumococcal [...] Sign Reading Time Taken Comments Blood Pressure 108/78 12/31/2020 10:56 AM EDT Pulse 92 12/31/2020 10:47 AM EDT Temperature 36.7 C (98 F) 12/31/2020 10:47 AM EDT Respiratory Rate 20 12/31/2020 10:47 AM EDT Oxygen Saturation 90% 12/31/2020 10:47 AM EDT Inhaled Oxygen Concentration - - Weight - - Height - - Body Mass Index - - documented in this encounter Progress Notes * Magaly Morales, Community Health Customer Relationship Specialist - 12/31/2020 10:33 AM EDT Community Health Customer Relationship Specialist Visit Date: 12/31/2020 Time: 10:37 AM Name: Stephanie Camp : 1955 Source of Information: Patient COVID-19 screening completed: Yes Vitals: Vital signs completed: Yes, vital signs within normal range. BP 108/78 (BP Site: Right Arm, BP Position: Sitting) | Pulse 92 | Temp 36.7 C (98 F) | Resp 20 | LMP 03/11/2003 | SpO2 90% Condition Changes: Changes in health or social status since last visit: yes The patient has new concerns since last visit: Yes Dizzy spells was given Meclazine and zofran From her PCP office two days ago Medications: Medication review completed? No, - Does the patient have barriers to medication adherence? No. Telehealth: This is a telehealth visit: No. Symptoms Surveys and Evaluations: [facility] completed this visit: Yes Last flowsheet values for [facility]: Age 65+: 1 (10/24/2020 2:00 PM) Diagnosis (3 or more co-existing): 1 (10/24/2020 2:00 PM) Prior history of falls within 3 months: 1 (10/24/2020 2:00 PM) Incontinence: 0 (10/24/2020 2:00 PM) Visual impairment: 0 (10/24/2020 2:00 PM) Impaired functional mobility: 0 (10/24/2020 2:00 PM) Environmental hazards: 1 (10/24/2020 2:00 PM) Poly Pharmacy (4 or more prescriptions - any type): 1 (10/24/2020 2:00 PM) Pain affecting level of function: 1 (10/24/2020 2:00 PM) Cognitive impairment: 0 (10/24/2020 2:00 PM) Score - a score of 4 or more is considered at risk for fallin (10/24/2020 2:00 PM) november 24 fall Transition of Care: Patient complains/reports: Dizziness/unsteadiness when walking. Family History of vertigo Following up at her PCP office tomorrow Plan: Notified Provider/Runway Modelexchange consultant in condition Follow Up: Patient encouraged to call the intake phone number for all urgent but not emergent issues. Scheduled to follow up with patient in 6 weeks or sooner I needed [facility] 12/31/2020 10:37 AM documented in this encounter Plan of Treatment Upcoming Encounters Date Type Specialty Care Team Description 01/01/2021 Office Visit Family Medicine Tahmina Samuel CRNP [address] [place] [address] [phone] 01/13/2021 Home Visit [facility] Rema Real LSW [address] [place] [address] [phone] 01/14/2021 Office Visit Family Medicine Kevin Whiteside DO [address] [place] [address] [phone] 01/14/2021 Office Visit Pharmacy [facility] [address] [place] [address] 01/19/2021 Home Visit [facility] Vera Capellan RN [address] [place] [address] [phone] 02/02/2021 Office Visit Cardiology Rey Woodall MD [address] [place] [address] [phone] 02/27/2021 Home Visit Family Medicine Magaly Morales Community Health Customer Relationship Specialist [address] [place] [address] [phone] 03/18/2021 Office Visit Nephrology Erik Lenz MD [address] [place] [address] [phone] 08/18/2021 Office Visit Pulmonary Celsa Tafoya CRNP [address] [place] [address] [phone] Health Maintenance Due Date Last Done Comments [...] Additional history exists CKD GFR USE SMARTSET 64311 06/26/202112/25, 11/17/2020, 05/06/2020, Additional history exists BREAST CANCER SCREENING DISCUSSION YEARLY AGES 40-75 10/01/2021 10/01/2020, 07/10/2019, 06/23/2018, Additional history exists CKD PHOS USE SMARTSET 05946 11/17/202110/28, 12/24/2019, 11/07/2019, Additional history exists CKD HGB USE SMARTSET 88716 12/25/202112/25, 12/25/2020, 11/17/2020, Additional history exists *DEPRESSION [...] on File Type Date Recorded Patient Chief Solution Architect Expl 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
--- OUTSIDE RECORDS SUMMARY | 2023-06-01 05:08 | External Medical Summary | Summary of Care ---
Author Name Unknown Organization [place] [address] Care Team Providers Care Product Finisher Name Role Phone Kevin Whiteside DO Primary Care Provider Reason for Visit * Reason Comments Re-Check BP check Encounter Details Date Type Department Care Team Description 01/01/2021 Office Visit [facility] [address] [facility] [place] [address] [facility] Samuel CRNP [address] [facility] [place] [address] Hypotension, unspecified hypotension type*; Chronic diastolic congestive heart failure (HCC); Type 2 diabetes mellitus with hemoglobin A1c goal of 7.0%-8.0% (HCC); ELLIE (generalized anxiety disorder) Allergies Active Allergy Reactions Severity Noted Date Comments Codeine 07/08/2014 hallucination Pollen 05/18/2019 Heparin 09/04/2009 Heparin Induced Thrombocytopenia Hydrocodone Neuro complications (Please comment) 07/28/2020 Empagliflozin Other (Please comment) Medium 05/17/2018 3 yeast infections in 6 weeks after starting Morphine And Related 09/16/1997 Hallucinations Tetanus Toxoid Other (Please comment) 06/15/2011 Passed out documented as of this encounter (statuses as of 01/01/2021) Medications Medication Sig Dispensed Refills Start Date [...] ([facility]) Inject up to 30 units with [...] 01/01/2021 Levothyroxine Sodium 200 MCG Oral Tablet (LEVOXYL)Indication [...] a day. 60 Tab 0 12/29/2020 Active zoster vac recomb adjuvanted (SHINGRIX) 50 MCG/0.5ML injection Inject 0.5 mL into a large muscle now and repeat dose in 60 to 180 days. Please fax date this was given to our office. (pt already had 1st done in 10/2019 1 Each 0 05/08/2020 1 Discontinu ed(Medicat ion List Clean Up) documented as of this encounter (statuses as of 01/01/2021) Active Problems Problem Noted Date Hypotension 12/19/2020 [...] as of this encounter (statuses as of 01/01/2021) Resolved Problems Problem Noted Date Resolved Date [...] as of this encounter (statuses as of 01/01/2021) Immunizations Name Administration Dates Next Due Pneumococcal [...] Sign Reading Time Taken Comments Blood Pressure 106/68 01/01/2021 9:03 AM EDT Pulse 96 01/01/2021 9:03 AM EDT Temperature 36.4 C (97.6 F) 01/01/2021 9:03 AM ED T Respiratory Rate 20 01/01/2021 9:03 AM EDT Oxygen Saturation - - Inhaled Oxygen Concentration - - Weight 152 kg (335 lb) 01/01/2021 9:03 AM EDT Height - - Body Mass Index 57.5 12/29/2020 9:29 AM EDT documented in this encounter Progress Notes * Tahmina Samuel CRNP - 01/01/2021 9:30 AM EDT Follow up Family Medicine Visit CC: "follow up hypotension" History of Present Illness: Stephanie Camp is a 65 year old female presenting for follow up of hypotension. Saw home nursing yesterday- B/p was low. After nurse left "felt like crap all night". Feeling tired, felt feverish(skin hurt). Temp was 99.7. Less dizziness overall. Occasional nausea. Weights daily- going to down a pound a day. Shortness of breath still present. Feels mind racing. More emotional. Tearful today. Worries about her health. Recent labs showing improved kidney functions suspected due to lower dose of lasix. Urine Culture negative. Cbc reassuring. Home blood sugars are now trending downward. 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 [employer] Vaping/E-Cigarette Use Vaping/E-Cigarette Use Never User Vaping/E-Cigarette Substances Vaping/E-Cigarette Devices PMH: Past Medical History: Diagnosis Date ELSIE (acute kidney injury) ([facility]) 06/12/2018 Allergic rhinitis due to other allergen Backache Diverticulosis of colon 01/28/06 DM type 2, not at goal ([facility]) ELLIE (generalized anxiety disorder) 09/13/[address] filter in place 08/19/2014 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[facility]) 08/22/2009 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[facility]) 06/12/2018 History of pulmonary embolus (PE) 07/16/2014 HTN, goal below 140/90 Impetigo 09/27/2018 Obesity, BMI not known Perforation of intestine ([facility]) 1996 COLON -- 1996 Pneumonia in aspergillosis(484.6) 09/14/2009 Spinal stenosis of lumbar region without neurogenic claudication 07/15/2020 Spontaneous pneumothorax 09/14/2009 Statin intolerance 07/16/2014 Type 2 diabetes mellitus with hemoglobin A1c goal of 7.0%-8.0% ([facility]) 10/14/2014 ICD-10 update of inactive term Vaginal karmen 07/13/2018 Past Surgical History: Procedure Laterality Date ARTHROPLASTY KNEE TOTAL Right 07/24/14 R COLONOSCOPY, DIAGNOSTIC (RECTUM) 02/18/2016 normal, repeat 10 yrs/[facility] COLONOSCOPY, GI REFERRAL OP 01/28/06 diverticulosis--repeat 10 years INCISION OF [place], PLANNED 06/03/2011 TRACHEOSTOMY PLANNED performed by DANNY HOLDER at OR [facility] INJECT DX/THER SUBSTANCE INTERLAMINAR LUMBAR/SACRAL W IMAGE GUIDE 05/26/2020 INJECTION SPINE LUMBAR OR SACRAL performed by Raj Ahn DO at OR [facility] KNEE ARTHROSCOPY/DEBRIDEMENT 07/[address] PERMANENT GASTROSTOMY TUBE 09/06/09 GASTROSTOMY WITH CONSTUCTION GASTRIC TUBE performed by AMADOU NUNEZ at [facility] REMOVAL OF THYROID GLAND 06/15/2011 THYROIDECTOMY INCLUDING SUBSTERNAL THYROID CERVICAL APPROACH performed by DANNY HOLDER at [facility] REMOVE GALLBLADDER 09/06/09 CHOLECYSTECTOMY performed by AMADOU NUNEZ at [facility] REPAIR RECURRENT INCISIONAL HERNIA 1998 REVISION OF COLOSTOMY, SIMPLE 1997 SACROILIAC JOINT INJECT W/GUIDANCE 07/28/2020 INJECTION SACROILIAC JOINT performed by Raj Ahn DO at OR [facility] SUTURE, LARGE INTESTINE W/COLOSTOMY 1996 perforation R colon with colostomy VENA CAVA FILTER/LIGATION/CLIP 08/19/09 Frank filter placement through the right femoral 08/19/[address] Lerma at [facility] Outpatient Medications Marked as Taking for the 01/01/21 encounter (Office Visit) with TATIANA Silveira Medication Sig clonazePAM 0.5 MG Oral Tablet (KlonoPIN) Take 1 Tab by mouth 2 times a day. Meclizine HCl 12.5 MG Oral Tablet (Antivert) Take 1 Tab by mouth 3 times a day as needed for Dizziness. Ondansetron HCl 4 MG Oral Tablet (Zofran) Take 1 Tab by mouth every 6 hours as needed for Nausea. Furosemide 40 MG Oral Tablet (Lasix) Take 0.5 Tabs by mouth 2 times a day. Tresiba FlexTouch 100 UNIT/ML Subcutaneous Solution Pen-injector (Insulin Degludec) Inject 60 Units under the skin daily. Acetaminophen 500 MG Oral Tablet (Acetaminophen Extra Strength) Take 500 mg by mouth every 6 hours as needed. rOPINIRole HCl 2 MG Oral Tablet (Requip) Take 1 Tab by mouth at bedtime. Gabapentin 300 MG Oral Capsule (Neurontin) Take 1 Cap by mouth 3 times a day. traMADol HCl 50 MG Oral Tablet (Ultram) Take 1 Tab by mouth every 8 hours as needed for Pain, Severe. DULoxetine HCl 30 MG Oral Capsule Delayed Release Particles (CYMBALTA) TAKE ONE CAPSULE BY MOUTH DAILY. take with 60mg capsule for total of 90mg DULoxetine HCl 60 MG Oral Capsule Delayed [...] min prior to breakfast or other meds) Magnesium Oxide 400 (241.3 Mg) MG Oral Tablet Take 400 mg by mouth daily. Vitamin D 25 MCG (1000 UT) Oral Tablet Take 1 Tab by mouth daily. NovoLOG FlexPen 100 UNIT/ML [...] under the skin once weekly Glucose Blood ([email or web address].[email or web address] ULTRA BLUE) STRP Check sugars 3-4 times daily, E11.9 Blood Glucose Monitoring Suppl ([email or web address].comTOUCH ULTRA 2) w/Device KIT Use to test BG values dicyclomine (BENTYL) 20 MG Tablet Take 1 Tab by mouth 4 times a day as needed for Pain, Mild. For abdominal pain DIURETIC TITRATION PLAN If no improvement on day 3, contact heart failure managing provider. potassium chloride ER 10 MEQ TBCR Take [...] (Adult) 12/11/2015 Zoster Vaccine Recombinant (Shingrix) 05/08/2020 Review of Systems: Review of Systems Constitutional: Positive for fatigue. HENT: Positive for congestion, postnasal drip and rhinorrhea. Eyes: Positive for itching. Respiratory: Positive for cough and shortness of breath. Negative for chest tightness and wheezing. Cardiovascular: Positive for palpitations and leg swelling. Negative for chest pain. Gastrointestinal: Positive for nausea. Negative for abdominal pain, diarrhea and vomiting. Musculoskeletal: Positive for myalgias. "I hurt everywhere" Allergic/Immunologic: Positive for environmental allergies. Neurological: Positive for dizziness. Psychiatric/Behavioral: Positive for dysphoric mood. Negative for agitation, hallucinations, self-injury, sleep disturbance and suicidal ideas. The patient is nervous/anxious. Physical Exam: BP 106/68 (BP Site: Left Arm, BP Position: Sitting, BP Cuff Size: Thigh) | Pulse 96 | Temp 36.4 C(97.6 F) (Tympanic) | Resp 20 | Wt (!) 152 kg (335 lb) | LMP 03/11/2003 | BMI 57.50 kg/m | BSA 2.62 m Physical Exam HENT: Head: Normocephalic. Nose: Nose normal. Eyes: Pupils: Pupils are equal, round, and reactive to light. Neck: Musculoskeletal: Normal range of motion. Cardiovascular: Rate and Rhythm: Normal rate. Pulmonary: Effort: Pulmonary effort is normal. Breath sounds: Normal breath sounds. Neurological: Mental Status: She is alert and oriented to person, place, and time. Psychiatric: Mood and Affect: Mood normal. Behavior: Behavior normal. Thought Content: Thought content normal. Judgment: Judgment normal. Assessment and Plan: 1. Hypotension, unspecified hypotension type Stable with less symptoms of dizziness Continue reduced dose of lasix daily Recent renal functions improved with less lasix Continue to monitor closely Follow up with PCP for 4-21 2. Chronic diastolic congestive heart failure (HCC) Weight is up today to 335 Home scales are lower per patient report No increased PND. BLE swelling still present but stable 3. Type 2 diabetes mellitus with hemoglobin A1c goal of 7.0%-8.0% ([facility]) Glucose trending downward 4. ELLIE (generalized anxiety disorder) Tearful, misses family. Feeling stressed She is asking if ok to take extra klonopin- reasonable x 1 I have advised the patient to call our office incase of any worsening or new symptoms. A total of 25 minutes were spent with the patient, more than half in [id number] explanation and discussion of the condition and treatment and answering questions. Mitchell, MIRLANDE, TATIANA [facility] documented in this encounter Nursing Notes * Ariela Mccrary, LEXI - 01/01/2021 9:09 AM EDT The patient has been properly identified by confirmation of name and date of . Chief Complaint Patient presents with Re-Check BP check Declined foot exam, states no sores but has neuropathy. documented in this encounter Plan of Treatment Upcoming Encounters Date Type Specialty Care Team Description 01/13/2021 Home Visit [facility] Rema Real, ELISABET [address] [address] [phone] 01/14/2021 Office Visit Family Medicine Kevin Whiteside, [address] [place] [address] [phone] 01/14/2021 Office Visit Pharmacy [facility] Jer[facility]ie [address] [place] [address] 01/19/2021 Home Visit [facility] Vera Capellan, RN [address] [place] [address] [phone] 02/02/2021 Office Visit Cardiology Rey Woodall MD [address] [facility] [address] [phone] 02/27/2021 Home Visit Family Medicine Magaly Morales, Community Health Lumber Material Handler [address] [place] [address] 03/18/2021 Office Visit Nephrology Erik Lenz MD [address] [place] [address] [phone] 08/18/2021 Office Visit Pulmonary Celsa Tafoya CRNP [address] [address] [phone] Health Maintenance Due Date Last Done Comments Pneumococcal Vaccine: 65+ Years (1 of 1 [...] Additional history exists CKD GFR USE SMARTSET 57710 06/26/202112/25, 11/17/2020, 05/06/2020, Additional history exists BREAST CANCER SCREENING DISCUSSION YEARLY AGES 40-75 10/01/2021 10/01/2020, 07/10/2019, 06/23/2018, Additional history exists CKD PHOS USE SMARTSET 70863 11/17/202110/28, 12/24/2019, 11/07/2019, Additional history exists CKD HGB USE SMARTSET 89174 12/25/202112/25, 12/25/2020, 11/17/2020, Additional history exists *DEPRESSION [...] as of this encounter Visit Diagnoses Diagnosis Hypotension, unspecified hypotension type- Primary Chronic diastolic congestive heart failure (HCC) Chronic diastolic heart failure Type 2 diabetes mellitus with hemoglobin A1c goal of 7.0%-8.0% (HCC) ELLIE (generalized anxiety disorder) Generalized anxiety disorder documented in this encounter Advance Directives Documents on File Type Date Recorded Patient Director Staffing Expl 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
--- OUTSIDE RECORDS SUMMARY | 2023-06-01 05:09 | External Medical Summary | Summary of Care ---
Author Name Unknown Organization [place] [address] Care Team Providers Care Internet Marketer Name Role Phone Kevin Whiteside DO Primary Care Provider Reason for Visit * Reason Comments [facility]: Maintenance Encounter Details Date Type Department Care Team Description 12/22/2020 Home Visit [facility], [facility] [address] [facility] [place] [address] Vera Capellan RN [facility] [address] [phone] Benign hypertensive heart and kidney disease with [...] as of this encounter (statuses as of 12/22/2020) Medications Medication Sig Dispensed Refills Start Date [...] instructions reported), Reported on 12/09/2020 DIURETIC TITRATION PLANIndications: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 45 mL 3 12/18/2020 Active documented as of this encounter (statuses as of 12/22/2020) Active Problems Problem Noted Date Hypotension 12/19/2020 [...] as of this encounter (statuses as of 12/22/2020) Resolved Problems Problem Noted Date Resolved Date [...] as of this encounter (statuses as of 12/22/2020) Immunizations Name Administration Dates Next Due Pneumococcal [...] Sign Reading Time Taken Comments Blood Pressure 88/54 12/22/2020 3:43 PM EDT Pulse 100 12/22/2020 3:37 PM EDT Temperature 36.2 C (97.1 F) 12/22/2020 3:37 PM ED T Respiratory Rate 18 12/22/2020 3:37 PM EDT Oxygen Saturation 94% 12/22/2020 3:37 PM EDT RA Inhaled Oxygen Concentration - - Weight - - Height - - Body Mass Index - - documented in this encounter Progress Notes * Vera Capellan RN - 12/22/2020 4:00 PM EDT [facility] Thermograph Operator ROSA #5 Visit Date: 12/22/2020 Time: 3:45 PM Name: Stephanie Camp : 1955 Current Concerns: Patient seen for ROSA #5 Since home from SNF has been having issue with hypotension Had telemed appt with family medicine PA on Tuesday and metoprolol remains stopped and Lasix decreased to 40mg in am and 20mg in pml No longer needs to wear sling for left elbow fx while at home - will still wear when out of home Goes back to ortho 01/08 for recheck and xrays Today pt reports she is more dizzy today BP is also low again 88/54 standing and 92/56 sitting Apical HR 100. Pt states she is also slightly nauseated today. Dizziness has been on and off but more frequent today . She reports she had no issues over the weekend. TT sent to Tahmina Samuel - had visit with her on Tuesday. Reduce Lasix to 20mg twice a day and recheck BP tomorrow. Physical Exam: BP 88/54 (BP Position: Standing) | Pulse 100 | Temp 36.2 C (97.1 F) | Resp 18 | LMP 03/11/2003 | SpO2 94% Comment: RA Pain 7 Physical Exam HENT: Nose: Nose normal. Mouth/Throat: Mouth: Mucous membranes are moist. Cardiovascular: Pulses: Normal pulses. Heart sounds: Normal heart sounds. Pulmonary: Effort: Pulmonary effort is normal. Breath sounds: Normal breath sounds. Abdominal: General: Bowel sounds are normal. Palpations: Abdomen is soft. Musculoskeletal: Right lower leg: Edema (+1) present. Left lower leg: Edema (+1) present. Skin: General: Skin is warm and dry. Neurological: Mental Status: She is oriented to [...] back pain and gait problem. Skin: Negative. Neurological: Positive for dizziness (more today - mostly with position change) and weakness. Medication Reconciliation: (See medication list) Does patient take medications as ordered: Yes Patient Well Being: PHQ2/9: No questionnaires available. No change in living situation. Denies any recent falls since home from hospital. Has issues on and off with depression. Gets frustrated with health issues. Will speak with family PA about it this week. Advanced Care Planning: POLST. Patient's Goals of [...] fruit/vegetable per day Educated on home safety: ? Create a fall proof home o Clear [...] and sidewalks free of snow and ice. ? Using aids to support and prevent falls o If you have poor balance or have fallen in the past, consider additional support such as a cane or walker. o Use a cane with good support and that is the proper length for you. o Use a walker if a cane doesnt provide enough support. ? Avoid medications that increase the risk of falling by causing dizziness, change in sensation or slowed reflexes. o Certain medicines may cause falls blood pressure pills, heart medicines, water pills, or sleeping pills. o Be sure to understand each medicine that you are taking and any side effects that may occur. ? Improve your balance and flexibility with muscle [...] help in the home Change position slowly Decreased Lasix to 20mg in am and 20mg in pm LES to check BP tomorrow am In person visit to be scheduled with Tahmina butt sent to scheduling. Home Interventions Provided: Home Intervention: Other; Evaluation Consulted PCP/Specialist Reinforced current Plan of Care, including self-management and medication regimen Patient's 'Red Flags': 1. Increased SOB 2. Increased edema 3. Worsening pain Patient Needs to Remember: Call [facility] at with any new or worsening health concerns or problems, red flag symptoms. Referrals Needed: Other none Follow Up: Patient encouraged to call the intake phone number for all urgent but not emergent issues. Is the patient new to [facility] within the last 30 days? No, Assess appropriateness for upcoming telehealth visits. Cancel telehealth visits & schedule home visit with care cleaning team member(s)as indicated. Provider is in agreement with Plan of Care: Yes Scheduled to follow up with patient tomorrow. Vera Capellan RN 12/22/2020 3:45 PM documented in this encounter Plan of Treatment Upcoming Encounters Date Type Specialty Care Team Description 12/23/2020 Home Visit Family Medicine Mira Duong, [facility] [address] [facility] [address] [place] [address] [phone] 12/29/2020 Home Visit Family Medicine Magaly Morales, [facility] [address] [place] [address] [phone] 01/13/2021 Home Visit [facility] Rema Real, RESIDENTIAL ROOFER HELPER [address] [place] [address] [phone] 01/14/2021 Office Visit Family Medicine Kevin Whiteside DO [address] [place] [address] [phone] 01/14/2021 Office Visit [facility] [address] [place] [address] 02/02/2021 Office Visit Cardiology Rey Woodall MD [address] [place] [id number] 03/18/2021 Office Visit Nephrology Erik Lenz MD [address] [facility] [place] [address] [phone] 08/18/2021 Office Visit Pulmonary Celsa Tafoya CRNP [address] [place] [address] [phone] Health Maintenance Due Date Last Done Comments [...] Additional history exists CKD GFR USE SMARTSET 97132 05/17/202111/17, 05/06/2020, 03/13/2020, Additional history exists DIABETES-HGBA1C EVERY 6 MONTHS 05/17/2021 11/17/2020, 01/23/2020, 11/07/2019, Additional history exists BREAST CANCER SCREENING DISCUSSION YEARLY AGES 40-75 10/01/2021 10/01/2020, 07/10/2019, 06/23/2018, Additional history exists CKD HGB USE SMARTSET 71100 11/17/202111/17, 11/17/2020, 05/06/2020, Additional history exists CKD PHOS USE SMARTSET 14590 11/17/202110/28, 12/24/2019, 11/07/2019, Additional history exists *DEPRESSION SCREENING,ANNUAL FOR PTS [...] Documents on File Type Date Recorded Patient 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
--- OUTSIDE RECORDS SUMMARY | 2023-06-01 05:09 | External Medical Summary | Summary of Care ---
Author Name Unknown Organization [place] [address] Care Team Providers Care Telecommunications Switch Technician Name Role Phone Kevin Whiteside DO Primary Care Provider Reason for Visit * Reason Comments Acute Encounter Details Date Type Department Care Team Description 12/19/[address] [facility] [address] [facility] [place] [address] Tahmina Samuel CRNP [address] [facility] [address] Hypotension, unspecified hypotension type*; Chronic diastolic congestive heart failure (HCC) Allergies [...] as of this encounter (statuses as of 12/19/2020) Medications Medication Sig Dispensed Refills Start Date [...] mouth daily. 90 Cap 3 0 Active metolazone (ZAROXOLYN) 2.5 MG Tablet Take as directed by physician 5 Tab 0 0 Active potassium chloride ER 10 MEQ [...] with long-term current use of insulin ([facility]) inject 1.5mg (one pen) under the skin once weekly 6 mL 1 0 Active furosemide (LASIX) 40 MG TabletIndications:C hronic diastolic congestive heart failure (HCC) Take 2 Tabs by mouth daily. 180 Tab 3 0 Active Additional Information Patient taking differently: 40 mg Oral BID, Reported on 06/13/2020 colchicine 0.6 MG TabletIndications:L eukocytoclastic vasculitis (HCC) [...] A1c goal of 7.0%-8.0% ([facility]) Inject up to 30 units with [...] 0 Active Additional Information Patient taking differently: 25 [...] a day. 270 Cap 0 1 Active clonazePAM 0.5 MG Oral Tablet (KlonoPIN)Indicatio ns:Anxiety state Take 1 Tab by mouth 2 times a day. 60 Tab 0 1 Active traMADol HCl 50 MG [...] A1c goal of 7.0%-8.0% ([facility]) Inject 60 Units under the skin daily. 45 mL 3 1 Active metoprolol tartrate (LOPRESSOR) 25 MG TabletIndications:H TN, goal below 130/80,Acute diastolic congestive heart failure (HCC),Body mass index (BMI) of 50.0 to 59.9 in adult (HCC),Hypoxemia,ELISSA (obstructive sleep apnea),HTN, goal below 140/80 Take 0.5 Tabs by mouth 2 times a day. 90 Tab 3 0 12/20/19 21 Discontinued documented as of this encounter (statuses as of 12/19/2020) Active Problems Problem Noted Date Hypotension 12/19/2020 [...] as of this encounter (statuses as of 12/19/2020) Resolved Problems Problem Noted Date Resolved Date [...] as of this encounter (statuses as of 12/19/2020) Immunizations Name Administration Dates Next Due Pneumococcal [...] as of this encounter Progress Notes * Tahmina Samuel, SPECIAL WEAPONS AND TACTICS OFFICER - 12/19/2020 8:20 AM EDT Follow up Family Medicine Visit I was in a hospital or clinic location. After connecting through televideo, patient was verified with two unique identifiers. Patient (or authorized legal bilingual sales representative) was then informed that this was a Telemedicine visit and being conducted confidentially over secure lines. Methods to assure confidentiality were taken. Patient acknowledged consent and understanding of privacy and security of the Telemedicine visit. The patient agreed to participate. History of Present Illness: Stephanie Camp is a 65 year old female presenting for follow up of blood pressure. She reports b/p has been running low for the last several weeks. Recently discharged from group home/rehab due to elbow fracture. Denies dizziness or feeling lightheaded when standing. Denies fatigue. Denies headache or blurred vision. Home nursing stopped her metoprolol 1 WEEK AGO. Home nursing b/ps are also low. 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 Employer: [employer] Social Needs Financial resource strain: Not [...] file Gets together: Not on file Attends samaritan service: Not on file Active member of [...] file Social History Narrative 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 [employer] Vaping/E-Cigarette Use Vaping/E-Cigarette Use Never User Vaping/E-Cigarette Substances Vaping/E-Cigarette Devices PMH: Past Medical History: Diagnosis Date ELSIE (acute kidney injury) ([facility]) 06/12/2018 Allergic rhinitis due to other allergen Backache Diverticulosis of colon 01/28/06 DM type 2, not at goal ([facility]) ELLIE (generalized anxiety disorder) 09/13/[address]iter [address] filter in place 08/19/2014 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[facility]) 08/22/2009 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[facility]) 06/12/2018 History of pulmonary embolus (PE) 07/16/2014 HTN, goal below 140/90 Impetigo 09/27/2018 Obesity, BMI not known Perforation of intestine ([facility]) 1996 COLON -- 1996 Pneumonia in aspergillosis(484.6) 09/14/2009 Spinal stenosis of lumbar region without neurogenic claudication 07/15/2020 Spontaneous pneumothorax 09/14/2009 Statin intolerance 07/16/2014 Type 2 diabetes mellitus with hemoglobin A1c goal of 7.0%-8.0% ([facility]) 10/14/2014 ICD-10 update of inactive term Vaginal karmen 07/13/2018 Past Surgical History: Procedure Laterality Date ARTHROPLASTY KNEE TOTAL Right 07/24/14 R COLONOSCOPY, DIAGNOSTIC (RECTUM) 02/18/2016 normal, repeat 10 yrs/[facility] COLONOSCOPY, GI REFERRAL OP 01/28/06 diverticulosis--repeat 10 years INCISION OF WINDPIPE, PLANNED 06/03/2011 TRACHEOSTOMY PLANNED performed by DANNY HOLDER at OR [facility] INJECT DX/THER SUBSTANCE INTERLAMINAR LUMBAR/SACRAL W IMAGE GUIDE 05/26/2020 INJECTION SPINE LUMBAR OR SACRAL performed by Raj Ahn DO at OR [facility] KNEE ARTHROSCOPY/DEBRIDEMENT 07/[address] PERMANENT GASTROSTOMY TUBE 09/06/09 GASTROSTOMY WITH CONSTUCTION GASTRIC TUBE performed by AMADOU NUNEZ at OR [facility] REMOVAL OF THYROID GLAND 06/15/2011 THYROIDECTOMY INCLUDING SUBSTERNAL THYROID CERVICAL APPROACH performed by DANNY HOLDER at OR [facility] REMOVE GALLBLADDER 09/06/09 CHOLECYSTECTOMY performed by AMADOU NUNEZ at [facility] REPAIR RECURRENT INCISIONAL HERNIA 1998 REVISION OF COLOSTOMY, SIMPLE 1997 SACROILIAC JOINT INJECT W/GUIDANCE 07/28/2020 INJECTION SACROILIAC JOINT performed by Raj Ahn DO at [facility] SUTURE, LARGE INTESTINE W/COLOSTOMY 1996 perforation R colon with colostomy VENA CAVA FILTER/LIGATION/CLIP 08/19/09 Ronks filter placement through the right femoral 08/19/[address] Lerma [address] [facility] No outpatient medications have been marked as taking for the 12/19/20 encounter (Appointment) with TATIANA Silveira. Review of patient's allergies indicates: Allergen Reactions [...] Review of Systems: Review of Systems Constitutional: Negative for chills, diaphoresis, fatigue and fever. Respiratory: Negative for shortness of breath. Cardiovascular: Positive for leg swelling. Negative for chest pain and palpitations. Worse leg swelling the last couple of days Musculoskeletal: Left elbow still healing Neurological: Negative for syncope. No episodes of syncope since hospitalized at [facility] Psychiatric/Behavioral: Negative for sleep disturbance. Physical Exam: LMP 03/11/2003 Physical Exam Constitutional: Appearance: She is obese. HENT: Head: Normocephalic. Neck: Musculoskeletal: Normal range of motion. Pulmonary: Effort: Pulmonary effort is normal. Neurological: Mental Status: She is alert and oriented to person, place, and time. Psychiatric: Mood and Affect: Mood normal. Behavior: Behavior normal. Thought Content: Thought content normal. Judgment: Judgment normal. Assessment and Plan: 1. Hypotension, unspecified hypotension type Off of metoprolol tartrate for the last week per home nursing Reduce lasix to 40 mg in the am and 20 mg in the evening Patient is asymptomatic, denies orthostasis 2. Chronic diastolic congestive heart failure (HCC) No increased sob, pnd. Leg swelling slightly increased over the last 2 days Given hypotension, recommend slight reduction in lasix Follow up in 1 week Recommend elevated legs/feet 30 minutes 3 times daily if swelling I have advised the patient to call our office incase of any worsening or new symptoms. A total of 25 minutes were spent with the patient, more than half in [id number] explanation and discussion of the condition and treatment and answering questions. Mitchell, MSN, TATIANA [facility] documented in this encounter Plan of Treatment Upcoming Encounters Date Type Specialty Care Team Description 12/22/2020 Home Visit [facility] Vera Capellan, LEXI [address] [place] [address] [phone] 12/29/2020 Home Visit Family Medicine Magaly Morales, [facility] Dietist [address] [place] [address] [phone] 01/08/2021 Office Visit Orthopedics Zack Teague, [address] [place] [address] [phone] 01/13/2021 [facility] Visit [facility] [place] Rema Real LSW [address] [place] [address] [phone] 01/14/2021 Office Visit Family Medicine Kevin Whiteside, [address] [place] [address] [phone] 01/14/2021 Office Visit [facility] [address] [place] [address] 02/02/2021 Office Visit Cardiology Rey Woodall MD [address] [place] [address] [phone] 03/18/2021 Office Visit Nephrology Erik Lenz MD [address] [place] [address] [phone] 08/18/2021 Office Visit Pulmonary Celsa Tafoya CRNP [address] [place] [address] [phone] Health Maintenance Due Date Last Done Comments [...] Additional history exists CKD GFR USE SMARTSET 18905 05/17/202111/17, 05/06/2020, 03/13/2020, Additional history exists DIABETES-HGBA1C EVERY 6 MONTHS 05/17/2021 11/17/2020, 01/23/2020, 11/07/2019, Additional history exists BREAST CANCER SCREENING DISCUSSION YEARLY AGES 40-75 10/01/2021 10/01/2020, 07/10/2019, 06/23/2018, Additional history exists CKD HGB USE SMARTSET 16920 11/17/202111/17, 11/17/2020, 05/06/2020, Additional history exists CKD PHOS USE SMARTSET 92790 11/17/202110/28, 12/24/2019, 11/07/2019, Additional history exists *DEPRESSION [...] File Type Date Recorded Patient 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
--- OUTSIDE RECORDS SUMMARY | 2023-06-01 05:09 | External Medical Summary | Summary of Care ---
Author Name Unknown Organization [facility] Address [place], [place] [address] Care Team Providers Care Interactive Media Designer Name Role Phone Kevin Whiteside DO Primary Care Provider Reason for Visit * Reason Onset Date Comments Appointment 12/17/2020 bp is high bs 30 0+ Encounter Details Date Type Department Care Team Description 12/17/2020 Telephone Family Practice [facility] [address] [place] [address] Kevin Whiteside DO [address] [place] [address] Appointment (bp is high bs 300+) Allergies Active Allergy Reactions Severity Noted Date Comments Codeine 07/08/2014 hallucination Pollen 05/18/2019 Heparin 09/04/2009 Heparin Induced Thrombocytopenia Hydrocodone Neuro complications (Please comment) 07/28/2020 Empagliflozin Other (Please comment) Medium 05/17/2018 3 yeast infections in 6 weeks after starting Morphine And Related 09/16/1997 Hallucinations Tetanus Toxoid Other (Please comment) 06/15/2011 Passed out documented as of this encounter (statuses as of 12/18/2020) Medications Medication Sig Dispensed Refills Start Date [...] DAILY, (No instructions reported), Reported on 12/09/2020 metoprolol tartrate (LOPRESSOR) 25 MG TabletIndications:H TN, goal below 130/80,Acute diastolic congestive heart failure (HCC),Body mass index (BMI) of 50.0 to 59.9 in adult (HCC),Hypoxemia,ELISSA (obstructive sleep apnea),HTN, goal below 140/80 Take 0.5 Tabs by mouth 2 times a day. 90 Tab 3 03/13/2020 Active DIURETIC TITRATION PLANIndications:Chr onic diastolic congestive [...] 0 05/08/2020 Active Blood Glucose Monitoring Suppl (WANdiscoTOUCH ULTRA 2) w/Device KIT Use to test BG values 1 Kit 0 05/20/2020 Active Glucose Blood (ONETOUCH ULTRA BLUE) STRP Check sugars 3-4 times daily, E11.9 400 Strip 3 05/22/2020 Active TRULICITY 1.5 MG/0.5ML SOPNIndications:DM type 2 nursing care encounter ([facility]),Uncontrolled type 2 diabetes mellitus with stage 3 chronic kidney disease, with long-term current use of insulin ([facility]) inject 1.5mg (one pen) under the skin once weekly 6 mL 1 05/27/2020 Active furosemide (LASIX) 40 MG TabletIndications:C hronic diastolic congestive heart failure ([facility]) Take 2 Tabs by mouth daily. 180 Tab 3 05/28/2020 Active Additional Information Patient taking differently: 40 mg Oral BID, Reported on 06/13/2020 colchicine 0.6 MG TabletIndications:L eukocytoclastic vasculitis ([facility]) Take 1/2 tab [...] goal of 7.0%-8.0% ([facility]) Inject up to 30 units [...] 11/10/2020 Active clonazePAM 0.5 MG Oral Tablet (KlonoPIN)Indicatio [...] skin daily. 45 mL 3 12/18/2020 Active Tresiba FlexTouch 100 UNIT/ML Subcutaneous Solution Pen-injector (Insulin Degludec) Inject 50 Units under the skin daily. 45 mL 3 06/25/2020 1 Discontinu ed(Refill) documented as of this encounter (statuses as of 12/18/2020) Active Problems Problem Noted Date Spinal stenosis of lumbar region without neurogenic claudication 07/15/2020 Primary osteoarthritis of left knee 10/28 Chronic respiratory failure with hypoxia 11/07/2019 Hyperparathyroidism, secondary renal 08/2020 Vasculitis 11/07/2019 Benign [...] 10/14/2014 Overview: ICD-10 update of inactive term [place] filter in place 08/19/2014 History of pulmonary embolus (PE) 2013 Statin intolerance 07/16/2014 HTN, goal below 130/80 02/22/2014 Venous insufficiency 02/07/2013 ELISSA (obstructive sleep apnea) 09/16/2011 Overview: CPAP 11 cwp Mild, AHI 11.3 but with significant nocturnal hypoxemia Dicks Postsurgical hypothyroidism 06/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 documented as of this encounter (statuses as of 12/18/2020) Resolved Problems Problem Noted Date Resolved Date Uncontrolled type 2 diabetes mellitus with stage 4 chronic kidney disease, with long-term current use of insulin 01/07/2020 07/01/2020 Overview: Per CKD protocol Other atherosclerosis of lorrie martinez arteries of [...] as of this encounter (statuses as of 12/18/2020) Immunizations Name Administration Dates Next Due Pneumococcal [...] Miscellaneous Notes * Telephone Encounter - Frances Ceballos LPN - 12/18/2020 9:47 AM EDT Patient returned call. Informed of message. Verbalized understanding. appt scheduled. * Telephone Encounter - Izabela Crump LPN - 12/18/2020 9:24 AM EDT Left message for pt to return call. * Telephone Encounter - Al Peace RP - 12/18/2020 9:13 AM EDT Patient Phone Numbers Spoke with patient Patient reports that over the past 2 days her blood sugars have been elevated into the 300's throughout the day, despite increased in novolog per sliding scale blood sugars remained elevated into ios908's, since last fall 12/11 - patient's activity has been reduced, not currently taking steroid. BGlikely increased due to decreased activity and pain, as BG is elevated throughout the day, recommending for increase in tresiba at this time, offered to schedule patient for earlier f/u visit with MTM, patient preferred to keep at current date and time, will reach out to MTM should BG remain elevated, agreeable to plan Diabetes Medications: Novolog 30 units with meals plus 1:25 over 150 INCREASE: Tresiba 60 units HS Al Peace, Pharm D Clinical Pharmacist 12/18/2020,9:21 AM * Telephone Encounter - Migdalia Whiteside OSA - 12/18/2020 8:51 AM EDT I will send to MTM. Nursing please inform pt of below. * Telephone Encounter - Kevin Whiteside DO - 12/17/2020 3:46 PM EDT Yes if she's willing to do that -please let her know I'll work with the PA to make sure we do the right thing in regards to her meds/care- we are just swamped for appointments right now - can we also keep her on a cancelation list?If worse comes to worse I will see her over a lunch, but I am just trying my best to not make exceptions for too many people or else I won't be able to sustain it. Also please route through MTM to see if they can reach out in regards to her blood sugars.p * Telephone Encounter - Migdalia Whiteside OSA - 12/17/2020 3:08 PM EDT You do not have any openings next week. Just schedule a telemed appt with the PA or have DAVID samaniego? * Telephone Encounter - Kevin Whiteside DO - 12/17/2020 2:54 PM EDT [facility] - can they have someone evaluate her and take BP at home so we can try to help without appointment? Can also schedule for Acute Telemed with my PA Can also loop in MTM to discuss blood sugars with the patient. Once we get more information we can try to get something figured out - Also - do I have any private slots available in the next week? * Telephone Encounter - Becky Ziegler OSA - 12/17/2020 12:32 PM EDT Pt is call requesting to see Dr whiteside States BP is running high along BS is over 300 the last few days No opening will only see him Please advise documented in this encounter Plan of Treatment Upcoming Encounters Date Type Specialty Care Team Description 12/19/2020 Telemedicine Family Medicine Tahmina Samuel CRNP [address] [facility] [place] [address] [phone] 12/22/2020 Home Visit [facility] Vera Capellan, RN [address] [place] [address] [phone] 12/29/2020 Home Visit Family Medicine Magaly Morales, [facility] [address] [place] [address] [phone] 01/08/2021 Office Visit Orthopedics Zack Teague, [address] [place] [address] [phone] 01/13/2021 Home Visit [facility] Rema Real LSW [address] [place] [address] [phone] 01/14/2021 Office Visit Family Medicine Kevin Whiteside, [address] [place] [address] [phone] 01/14/2021 Office Visit Pharmacy [facility] [address] [place] [address] 02/02/2021 Office Visit Cardiology Rey Woodall MD [address] [place] [address] [phone] 03/18/2021 Office Visit Nephrology Erik Lenz MD [address] [place] [address], [place] [address] [phone] 08/18/2021 Office Visit Pulmonary Celsa Tafoya CRNP [address] [place] [address] [phone] Health Maintenance Due Date Last Done Comments [...] Additional history exists CKD GFR USE SMARTSET 20683 05/17/202111/17, 05/06/2020, 03/13/2020, Additional history exists DIABETES-HGBA1C EVERY 6 MONTHS 05/17/2021 11/17/2020, 01/23/2020, 11/07/2019, Additional history exists BREAST CANCER SCREENING DISCUSSION YEARLY AGES 40-75 10/01/2021 10/01/2020, 07/10/2019, 06/23/2018, Additional history exists CKD HGB USE SMARTSET 19582 11/17/202111/17, 11/17/2020, 05/06/2020, Additional history exists CKD PHOS USE SMARTSET 56456 11/17/202110/28, 12/24/2019, 11/07/2019, Additional history exists *DEPRESSION [...] hemoglobin A1c goal of 7.0%-8.0% ([facility])- Primary documented in this encounter Advance Directives Documents on File Type Date Recorded Patient Stakeholder Manager Expl 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
--- OUTSIDE RECORDS SUMMARY | 2023-06-01 05:09 | External Medical Summary | Summary of Care ---
Author Name Unknown Organization [place] [address] Care Team Providers Care Threading Machine Setter Name Role Phone Kevin Whiteside DO Primary Care Provider Reason for Visit * Reason Onset Date Comments Blood Sugar Problem 12/24/2020 Encounter Details Date Type Department Care Team Description 12/24/2020 Telephone [facility], [facility] [place] [address] [facility] [address] [facility] [place] [address] Blood Sugar Problem Allergies Active Allergy Reactions Severity Noted Date Comments Codeine 07/08/2014 hallucination Pollen 05/18/2019 Heparin 09/04/2009 Heparin Induced Thrombocytopenia Hydrocodone Neuro complications (Please comment) 07/28/2020 Empagliflozin Other (Please comment) Medium 05/17/2018 3 yeast infections in 6 weeks after starting Morphine And Related 09/16/1997 Hallucinations Tetanus Toxoid Other (Please comment) 06/15/2011 Passed out documented as of this encounter (statuses as of 12/24/2020) Medications Medication Sig Dispensed Refills Start Date [...] reported), Reported on 12/09/2020 DIURETIC TITRATION PLANIndications:Master Motorcycle Technician zahra diastolic congestive heart failure (HCC) [...] with long-term current use of insulin ([facility]) inject 1.5mg (one pen) under the skin [...] of 7.0%-8.0% ([facility]) Inject up to 30 units with meals [...] as of this encounter (statuses as of 12/24/2020) Active Problems Problem Noted Date Hypotension 12/19/2020 [...] 10/14/2014 Overview: ICD-10 update of inactive term [place] filter in place 08/19/2014 History of pulmonary embolus (PE) 2013 Statin intolerance 07/16/2014 HTN, goal below 130/80 02/22/2014 Venous insufficiency 02/07/2013 ELISSA (obstructive sleep apnea) 09/16/2011 Overview: CPAP 11 cwp Mild, AHI 11.3 but with significant nocturnal hypoxemia Dicks Postsurgical hypothyroidism 06/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 documented as of this encounter (statuses as of 12/24/2020) Resolved Problems Problem Noted Date Resolved Date Uncontrolled type 2 diabetes mellitus with stage 4 chronic kidney disease, with long-term current use of insulin 01/07/2020 07/01/2020 Overview: Per CKD protocol Chronic respiratory failure with hypoxia 020 12/19/2020 Other atherosclerosis of lorire martinez arteries of extremities, left leg 02/26/2019 [...] as of this encounter (statuses as of 12/24/2020) Immunizations Name Administration Dates Next Due Pneumococcal [...] Miscellaneous Notes * Telephone Encounter - Rose Barton RPh - 12/24/2020 10:53 AM EDT Patient Phone Numbers Celect [phone] Left message for patient via answering machine. Recommended to increase Novolog by 5 units to 35 units plus sliding scale. Encouraged her to call back to discuss BG values in more detail and providedtoll free number. Rose Barton, Pharm D Clinical Pharmacist 12/24/2020, 10:55 AM * Telephone Encounter - Naif Velez OSA - 12/24/2020 10:37 AM EDT Pt called with complaint of sugar problems, having fatigue, denies any new medication. Says startedabout 2 weeks ago. documented in this encounter Plan of Treatment Upcoming Encounters Date Type Specialty Care Team Description 12/29/2020 Home Visit Family Medicine Magaly Morales, [facility] [address] [place] [address] [phone] 01/13/2021 Home Visit [facility] Rema Real, AUTOBODY TECHNICIAN [facility] [place] [address] [phone] 01/14/2021 Office Visit Family Medicine Kevin Whiteside DO [address] [place] [address] [phone] 01/14/2021 Office Visit Pharm[facility] [place] [address] 02/02/2021 Office Visit Cardiology Rey Woodall MD [address] [facility] [place] [address] [phone] 03/18/2021 Office Visit Nephrology Erik Lenz MD [address] [place] [address] [phone] 08/18/2021 Office Visit Pulmonary Celsa Tafoya CRNP [facility] [place] [address] [phone] Health Maintenance Due Date Last Done Comments [...] Additional history exists CKD GFR USE SMARTSET 80423 05/17/202111/17, 05/06/2020, 03/13/2020, Additional history exists DIABETES-HGBA1C EVERY 6 MONTHS 05/17/2021 11/17/2020, 01/23/2020, 11/07/2019, Additional history exists BREAST CANCER SCREENING DISCUSSION YEARLY AGES 40-75 10/01/2021 10/01/2020, 07/10/2019, 06/23/2018, Additional history exists CKD HGB USE SMARTSET 47895 11/17/202111/17, 11/17/2020, 05/06/2020, Additional history exists CKD PHOS USE SMARTSET 57544 11/17/202110/28, 12/24/2019, 11/07/2019, Additional history exists *DEPRESSION [...] on File Type Date Recorded Patient Green Lumber Grader Expl 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
--- OUTSIDE RECORDS SUMMARY | 2023-06-01 05:09 | External Medical Summary | Summary of Care ---
Author Name Unknown Organization [place] [address] Care Team Providers Care Oil Program Compliance Specialist Name Role Phone Kevin Whiteside DO Primary Care Provider Reason for Visit * Reason Onset Date Comments Dizziness 12/22/2020 Encounter Details Date Type Department Care Team Description 12/22/2020 Telephone Family Practice [facility] [address] [facility] [place] [address] Tahmina Samuel CRNP [address] [facility] [place] [address] Dizziness Allergies Active Allergy Reactions Severity Noted Date [...] a day. 180 Tab 3 1 Active furosemide (LASIX) 40 MG TabletIndications:C hronic diastolic congestive heart failure (HCC) Take 2 Tabs by mouth daily. 180 Tab 3 0 12/23/19 21 Discontinued documented as of this encounter [...] encounter Miscellaneous Notes * Telephone Encounter - Marjorie Powell PA-C - 12/22/2020 4:42 PM EDT Agree with reduction in diuretics. Increase water intake. Would consider BMP at office visit. * Telephone Encounter - Tahmina Samuel CRNP - 12/22/2020 4:09 PM EDT Received call from [facility]- Vera Capellan. Patient is not taking metolazone currently. Taking lasix 60 mg daily since Tuesday. No symptoms over the weekend but today she is feeling dizzy,nauseated. B/P sitting 92/56 B/P standing 88/54 Recommend further reduction of lasix to 20 mg po bid Appt here later this week [facility] to check on her tomorrow. Vera Capellan aware of plan via phone this afternoon Mitchell, MSN, TATIANA [facility] documented in this encounter Plan of Treatment Upcoming Encounters Date Type Specialty Care Team Description 12/23/2020 Home Visit Family Medicine Mira Duong, [facility] Health Continuous Still Operator [address] [place] [address] [phone] 12/29/2020 Home Visit Family Medicine Magaly Morales, [facility] Health Continuous Still Operator [address] [place] [address] [phone] 01/13/2021 Home Visit [facility] Rema Real, ELISABET [address] [place] [address] [phone] 01/14/2021 Office Visit Family Medicine Kevin Whiteside DO [address] [place] [address] [phone] 01/14/2021 Office Visit Pharmacy [facility] [address] [place] [id number] 02/02/2021 Office Visit Cardiology Rey Woodall MD [address] [place] [address] [phone] 03/18/2021 Office Visit Nephrology Erik Lenz MD [address] [place] [address], [place] [address] [phone] 08/18/2021 Office Visit Pulmonary Celsa Tafoya CRNP [address] [facility] [place] [address] [phone] Health Maintenance Due Date Last Done Comments [...] Additional history exists CKD GFR USE SMARTSET 75334 05/17/202111/17, 05/06/2020, 03/13/2020, Additional history exists DIABETES-HGBA1C EVERY 6 MONTHS 05/17/2021 11/17/2020, 01/23/2020, 11/07/2019, Additional history exists BREAST CANCER SCREENING DISCUSSION YEARLY AGES 40-75 10/01/2021 10/01/2020, 07/10/2019, 06/23/2018, Additional history exists CKD HGB USE SMARTSET 36235 11/17/202111/17, 11/17/2020, 05/06/2020, Additional history exists CKD PHOS USE SMARTSET 98800 11/17/202110/28, 12/24/2019, 11/07/2019, Additional history exists *DEPRESSION [...] File Type Date Recorded Patient Director Of Instrumental Music Expl 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
--- OUTSIDE RECORDS SUMMARY | 2023-06-01 05:09 | External Medical Summary | Summary of Care ---
Author Name Unknown Organization [place] [address] Care Team Providers Care Tile Molder Name Role Phone Kevin Whiteside DO Primary Care Provider Reason for Visit * Reason Onset Date Comments Dizziness 12/22/2020 Encounter Details Date Type Department Care Team Description 12/22/2020 Telephone Family Practice [facility] [address] [facility] [place] [address] Tahmina Samuel CRNP [address] [facility] [place] [address] Dizziness Allergies Active Allergy [...] 7.0%-8.0% ([facility]) Inject up to 30 units with [...] Miscellaneous Notes * Telephone Encounter - Tahmina Samuel CRNP - 12/22/2020 4:09 PM EDT Received call from YANN Capellan. Patient is not taking metolazone currently. Taking lasix 60 mg daily since Tuesday. No symptoms over the weekend but today she is feeling dizzy,nauseated. B/P sitting 92/56 B/P standing 88/54 Recommend further reduction of lasix to 20 mg po bid Appt here later this week [facility] to check on her tomorrow. Vera Capellan aware of plan via phone this afternoon Mitchell, MSN, TATIANA [facility] documented in this encounter Plan of Treatment Upcoming Encounters Date Type Specialty Care Team Description 12/23/2020 Home Visit Family Medicine Mira Duong, [facility] Health Loan Manager [address] [place] [address] [phone] 12/29/2020 Home Visit Family Medicine Magaly Morales, [facility] [address] [place] [address] [phone] 01/13/2021 Home Visit [facility] Rema Real LSW [address] [place] [address] [phone] 01/14/2021 Office Visit Family Medicine Kevin Whiteside DO [address] [place] [address] [phone] 01/14/2021 Office Visit Pharmacy [facility] [address] [place] [address] 02/02/2021 Office Visit Cardiology Rey Woodall MD [address] [place] [address] [phone] 03/18/2021 Office Visit Nephrology Erik Lenz MD [address] [place] [address] [phone] 08/18/2021 Office Visit Pulmonary Celsa Tafoya CRNP [address] [place] [address] [phone] Health Maintenance Due Date Last Done Comments [...] Additional history exists CKD GFR USE SMARTSET 04933 05/17/202111/17, 05/06/2020, 03/13/2020, Additional history exists DIABETES-HGBA1C EVERY 6 MONTHS 05/17/2021 11/17/2020, 01/23/2020, 11/07/2019, Additional history exists BREAST CANCER SCREENING DISCUSSION YEARLY AGES 40-75 10/01/2021 10/01/2020, 07/10/2019, 06/23/2018, Additional history exists CKD HGB USE SMARTSET 43043 11/17/202111/17, 11/17/2020, 05/06/2020, Additional history exists CKD PHOS USE SMARTSET 01750 11/17/202110/28, 12/24/2019, 11/07/2019, Additional history exists *DEPRESSION [...] Documents on File Type Date Recorded Patient Teradata Architect Expl 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
--- OUTSIDE RECORDS SUMMARY | 2023-06-01 05:09 | External Medical Summary | Summary of Care ---
Author Name Unknown Organization [place] [address] Care Team Providers Care Computer Terminal Operator Name Role Phone Kevin Whiteside DO Primary Care Provider Reason for Visit * Reason Comments [facility]: Maintenance Encounter Details Date Type Department Care Team Description 12/22/2020 Door Serviceman [facility], [facility] [place] [address] Rema Real, INTELLIGENCE CHIEF [address] [facility] [place] [address] [phone] Allergies Active Allergy Reactions Severity Noted Date [...] instructions reported), Reported on 12/09/2020 DIURETIC TITRATION PLANIndications:Feed Management Advisor zahra diastolic congestive heart failure (HCC) If [...] type 2 nursing care encounter ([facility]),Uncontrolled type 2 diabetes mellitus with stage 3 chronic kidney disease, with long-term current use of insulin ([facility]) inject 1.5mg (one pen) under [...] 7.0%-8.0% ([facility]) Inject up to 30 units [...] 10/14/2014 Overview: ICD-10 update of inactive term Gilbert filter in place 08/19/2014 History of pulmonary [...] Progress Notes * Rema Real LSW - 12/22/2020 10:05 AM EDT STEFANY called [facility] for assistance with cleaning. Left message for them to call STEFANY back. STEFANY rec'd call back from [facility]. Spoke with service liaison representative. She thought [facility] coulddo a one time cleaning. She will have family service aide call STEFANY back. Did not hear back by end of day. documented in this encounter Plan of Treatment Upcoming Encounters Date Type Specialty Care Team Description 12/23/2020 Home Visit Family Medicine Mira Duong, [facility] [address] [place] [address] [phone] 12/29/2020 Home Visit Family Medicine Magaly Morales, [facility] [address] [place] [address] [phone] 01/13/2021 Home Visit [facility] Rema Real LSW [address] [place] [address] [phone] 01/14/2021 Office Visit Family Medicine Kevin Whiteside DO [facility] [place] [address] [phone] 01/14/2021 Office Visit Pharmacy [facility] [place] [facility] [place] [address] 02/02/2021 Office Visit Cardiology Rey Woodall MD 132 [facility] [place] [address] 03/18/2021 Office Visit Nephrology Erik Lenz MD [address] [facility] [place] [address] [phone] 08/18/2021 Office Visit Pulmonary Celsa Tafoya CRNP 132 [facility] [place] [address] Health Maintenance Due Date [...] Additional history exists CKD GFR USE SMARTSET 16143 05/17/202111/17, 05/06/2020, 03/13/2020, Additional history exists DIABETES-HGBA1C EVERY 6 MONTHS 05/17/2021 11/17/2020, 01/23/2020, 11/07/2019, Additional history exists BREAST CANCER SCREENING DISCUSSION YEARLY AGES 40-75 10/01/2021 10/01/2020, 07/10/2019, 06/23/2018, Additional history exists CKD HGB USE SMARTSET 40834 11/17/202111/17, 11/17/2020, 05/06/2020, Additional history exists CKD PHOS USE SMARTSET 65748 11/17/202110/28, 12/24/2019, 11/07/2019, Additional history exists *DEPRESSION [...] Documents on File Type Date Recorded Patient Neuroscience Director Na Expl 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
--- OUTSIDE RECORDS SUMMARY | 2023-06-01 05:09 | External Medical Summary | Summary of Care ---
Author Name Unknown Organization [place] [address] Care Team Providers Care Scrubber Operator Name Role Phone Kevin Whiteside DO Primary Care Provider Reason for Visit * Reason Onset Date Comments Medication Question 12/23/2020 Encounter Details Date Type Department Care Team Description 12/23/2020 Telephone Pharmacy, [facility] [place] [address] [facility] 132 [facility] [place] [address] Medication Question Allergies Active Allergy Reactions Severity Noted Date Comments Codeine 07/08/2014 hallucination Pollen 05/18/2019 Heparin 09/04/2009 Heparin Induced Thrombocytopenia Hydrocodone Neuro complications (Please comment) 07/28/2020 Empagliflozin Other (Please comment) Medium 05/17/2018 3 yeast infections in 6 weeks after starting Morphine And Related 09/16/1997 Hallucinations Tetanus Toxoid Other (Please comment) 06/15/2011 Passed out documented as of this encounter (statuses as of 12/23/2020) Medications Medication Sig Dispensed Refills Start Date [...] instructions reported), Reported on 12/09/2020 DIURETIC TITRATION PLANIndications: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 Apprentice zahra diastolic congestive heart failure (HCC) [...] use of insulin ([facility]) inject 1.5mg (one pen) under [...] of 7.0%-8.0% ([facility]) Inject up to 30 units [...] as of this encounter (statuses as of 12/23/2020) Active Problems Problem Noted Date Hypotension 12/19/2020 [...] 10/14/2014 Overview: ICD-10 update of inactive term Booker filter in place 08/19/2014 History of pulmonary embolus (PE) 2013 Statin intolerance 07/16/2014 HTN, goal below 130/80 02/22/2014 Venous insufficiency 02/07/2013 ELISSA (obstructive sleep apnea) 09/16/2011 Overview: CPAP 11 cwp Mild, AHI 11.3 but with significant nocturnal hypoxemia Dicks Postsurgical hypothyroidism 06/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 documented as of this encounter (statuses as of 12/23/2020) Resolved Problems Problem Noted Date Resolved Date [...] as of this encounter (statuses as of 12/23/2020) Immunizations Name Administration Dates Next Due Pneumococcal [...] Telephone Encounter - Rose Barton RPh - 12/23/2020 2:55 PM EDT Patient Phone Numbers Stylenda [phone] Left message for patinet via answering machine. Requested call back to discuss DM. Rose Barton, Pharm D Clinical Pharmacist 12/23/2020, 3:05 PM * Telephone Encounter - Mar Simeon, ELISSA - 12/23/2020 2:35 PM EDT Patient Phone Numbers Patient calling to state the Tresiba is not working,please advise. documented in this encounter Plan of Treatment Upcoming Encounters Date Type Specialty Care Team Description 12/29/2020 Home Visit Family Medicine Magaly Morales, [facility] Plane Runner [address] [place] [address] [phone] 01/13/2021 Home Visit [facility] Rema Real, CHIEF SERVICE OBSERVER [address] [place] [address] [phone] 01/14/2021 Office Visit Family Medicine Kevin Whiteside DO [address] [place] [address] [phone] 01/14/2021 Office Visit Pharmacy [facility] [address] [place] [address] 02/02/2021 Office Visit Cardiology Rey Woodall MD [address] [place] [address] [phone] 03/18/2021 Office Visit Nephrology Erik Lenz MD [address] [place] [address] [phone] 08/18/2021 Office Visit Pulmonary Celsa Tafoya CRNP [address] [place] [address] [phone] Health Maintenance Due Date Last Done Comments [...] Additional history exists CKD GFR USE SMARTSET 53587 05/17/202111/17, 05/06/2020, 03/13/2020, Additional history exists DIABETES-HGBA1C EVERY 6 MONTHS 05/17/2021 11/17/2020, 01/23/2020, 11/07/2019, Additional history exists BREAST CANCER SCREENING DISCUSSION YEARLY AGES 40-75 10/01/2021 10/01/2020, 07/10/2019, 06/23/2018, Additional history exists CKD HGB USE SMARTSET 84027 11/17/202111/17, 11/17/2020, 05/06/2020, Additional history exists CKD PHOS USE SMARTSET 31004 11/17/202110/28, 12/24/2019, 11/07/2019, Additional history exists *DEPRESSION [...] Documents on File Type Date Recorded Patient Deicer Inspector Pneumatic Expl 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
--- OUTSIDE RECORDS SUMMARY | 2023-06-01 05:09 | External Medical Summary | Summary of Care ---
Author Name Unknown Organization [place] [address] Care Team Providers Care Property Maintenance Supervisor Name Role Phone Kevin Whiteside DO Primary Care Provider Reason for Visit * Reason Onset Date Comments Appointment 12/19/2020 Encounter Details Date Type Department Care Team Description 12/19/2020 Telephone Pulmonary Medicine, [facility] [address] [facility] [place] [address] Tahmina Samuel CRNP [address] [facility] [place] [address] Appointment Allergies Active Allergy [...] instructions reported), Reported on 12/09/2020 DIURETIC TITRATION PLANIndications:Imaging Analyst zahra diastolic congestive heart failure (HCC) [...] with long-term current use of insulin ([facility]) inject 1.5mg (one pen) under the [...] of 7.0%-8.0% ([facility]) Inject up to 30 units with [...] encounter Miscellaneous Notes * Telephone Encounter - Telma Ambrocio OSA - 12/24/2020 10:16 AM EDT Letter sent * Telephone Encounter - Telma Ambrocio OSA - 12/23/2020 10:53 AM EDT Called went straight to vm did not ring. If pt calls back please schedule or give pt to schedule * Telephone Encounter - Cortney Almanza OSA - 12/22/2020 3:47 PM EDT Vera Capellan RN [facility] Sched[facility] Pt states she was supposed to have someone call her to set up an in person visit with [place] this week. She has not received any calls. Can you please assist in getting this set up. * Telephone Encounter - Telma Ambrocio OSA - 12/22/2020 3:16 PM EDT Lm for pt to call and schedule 1 wk f/u * Telephone Encounter - Migdalia Whiteside OSA - 12/19/2020 11:58 AM EDT [place] appt done with Tahmina today and she recommended a 1 week f/u. LM for pt to call and schedule documented in this encounter Plan of Treatment Upcoming Encounters Date Type Specialty Care Team Description 12/29/2020 Home Visit Family Medicine Magaly Morales, [facility] Process Automation Engineer [address], [place] [id number] 01/13/2021 Home Visit [facility] Rema Real LSW [address] [place] [address] [phone] 01/14/2021 Office Visit Family Medicine Kevin Whiteside DO [address] [place] [address] [phone] 01/14/2021 Office Visit Pharmacy [facility] Jeramie [address] [place] [address] 02/02/2021 Office Visit Cardiology Rey Woodall MD [address] [place] [address] [phone] 03/18/2021 Office Visit Nephrology Erik Lenz MD 200 [place] [address] [phone] 08/18/2021 Office Visit Pulmonary Celsa Tafoya CRNP [address] [place] [address] [phone] Health Maintenance Due Date Last Done Comments [...] Additional history exists CKD GFR USE SMARTSET 60753 05/17/202111/17, 05/06/2020, 03/13/2020, Additional history exists DIABETES-HGBA1C EVERY 6 MONTHS 05/17/2021 11/17/2020, 01/23/2020, 11/07/2019, Additional history exists BREAST CANCER SCREENING DISCUSSION YEARLY AGES 40-75 10/01/2021 10/01/2020, 07/10/2019, 06/23/2018, Additional history exists CKD HGB USE SMARTSET 14666 11/17/202111/17, 11/17/2020, 05/06/2020, Additional history exists CKD PHOS USE SMARTSET 11668 11/17/202110/28, 12/24/2019, 11/07/2019, Additional history exists *DEPRESSION [...] on File Type Date Recorded Patient Health And Safety Trainer Expl 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
--- OUTSIDE RECORDS SUMMARY | 2023-06-01 05:09 | External Medical Summary | Summary of Care ---
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 180 Tab 3 05/28/2020 Active Additional Information Patient taking differently: 40 mg Oral BID, Reported on 06/13/2020 colchicine 0.6 MG TabletIndications:Le ukocytoclastic vasculitis (HCC) [...] ([facility]) Inject up to 30 units with [...] every 6 hours as needed. 0 Active documented as of this encounter [...] 10/14/2014 Overview: ICD-10 update of inactive term Spivey filter in place 08/19/2014 History of pulmonary [...] Date Type Specialty Care Team Description 12/22/2020 [facility] Rema Real LSW [address] [place] [address] [phone] 12/22/2020 Home Visit [facility] [place] Vera Capellan RN [address] [place] [address] [phone] 12/29/2020 Home Visit Family Medicine Magaly Morales, [facility] Machine Crater [address] [place] [address] [phone] 01/08/2021 Office Visit Orthopedics Zack Teague, [address] [place] [address] [phone] 01/13/2021 Home Visit [facility] Rema Real LSW [address] [place] [address] [phone] 01/14/2021 Office Visit Family Medicine Kevin Whiteside, [address] [place] [address] [phone] 01/14/2021 Office Visit Pharmacy [facility] Jer[place] [address] [place] [address] 02/02/2021 Office Visit Cardiology Rey Woodall MD [address] [place] [address] 03/18/2021 Office Visit Nephrology Erik Lenz MD [address] [facility] [place] [address] [phone] 08/18/2021 Office Visit Pulmonary Celsa Tafoya CRNP [address] [place] [address] Health Maintenance Due Date Last Done [...] Additional history exists CKD GFR USE SMARTSET 05478 05/17/202111/17, 05/06/2020, 03/13/2020, Additional history exists DIABETES-HGBA1C EVERY 6 MONTHS 05/17/2021 11/17/2020, 01/23/2020, 11/07/2019, Additional history exists BREAST CANCER SCREENING DISCUSSION YEARLY AGES 40-75 10/01/2021 10/01/2020, 07/10/2019, 06/23/2018, Additional history exists CKD HGB USE SMARTSET 18889 11/17/202111/17, 11/17/2020, 05/06/2020, Additional history exists CKD PHOS USE SMARTSET 81488 11/17/202110/28, 12/24/2019, 11/07/2019, Additional history exists *DEPRESSION [...] Documents on File Type Date Recorded Patient Tobacco Drying Machine Operator Expl anation Advanced Directive 08/22/2009 [...]
--- OUTSIDE RECORDS SUMMARY | 2023-06-01 05:10 | External Medical Summary | Summary of Care ---
Author Name Unknown Organization [facility] Address [place], [place] [address] Care Team Providers Care Continuity Tester Name Role Phone Kevin Whiteside DO Primary Care Provider Reason for Visit * Reason Onset Date Comments Appointment 12/17/2020 bp is high bs 30 0+ Encounter Details Date Type Department Care Team Description 12/17/2020 Telephone Family Practice [facility] system [address] [place] [address] Kevin [...] 0 05/08/2020 Active Blood Glucose Monitoring Suppl ([place] MR PhotoelectricityTOUCH ULTRA 2) w/Device KIT Use to test [...] MG TabletIndications:C hronic diastolic congestive heart failure ([facility]) Take 2 Tabs by mouth daily. 180 Tab 3 05/28/2020 Active Additional Information Patient taking differently: 40 mg Oral BID, Reported on 06/13/2020 colchicine 0.6 MG TabletIndications:L eukocytoclastic vasculitis ([facility]) Take [...] 7.0%-8.0% ([facility]) Inject up to 30 units with [...] 10/14/2014 Overview: ICD-10 update of inactive term Worthington filter in place 08/19/2014 History of pulmonary [...] encounter Miscellaneous Notes * Telephone Encounter - Izabela Crump LPN - 12/18/2020 9:24 AM EDT Left message for pt to return call. * Telephone Encounter - Al Peace [facility] - 12/18/2020 9:13 AM EDT Patient Phone Numbers Spoke with patient Patient reports that over the past 2 days her blood sugars have been elevated into the 300's throughout the day, despite increased in novolog per sliding scale blood sugars remained elevated into nik248's, since last fall 12/11 - patient's activity [...] 8:51 AM EDT I will send to [facility]. Nursing please inform pt of below. * [...] telemed appt with the PA or have BRAEDENVinicius asmaniego? * Telephone Encounter - Kevin Whiteside DO [...] Specialty Care Team Description 12/22/2020 Home Visit [facility] Vera Capellan, RN [address] [place] [address] [phone] 12/29/2020 Home Visit Family Medicine Magaly Morales, [facility] Power Press Supervisor [address] [place] [address] [phone] 01/08/2021 Office Visit Orthopedics Zack Teague DO [address] [place] [address] [phone] 01/13/2021 Home Visit [facility] Rema Real LSW [address] [place] [address] [phone] 01/14/2021 Office Visit Family Medicine Kevin Whiteside DO [address] [place] [address] [phone] 01/14/2021 Office Visit Pharmacy [facility] Jeramie [address] [place] [address] 02/02/2021 Office Visit Cardiology Rey Woodall MD [address] [place] [address] [phone] 03/18/2021 Office Visit Nephrology Erik Lenz MD [address] [place] [address] [phone] 08/18/2021 Office Visit Pulmonary Celsa Tafoya CRNP 132 [facility] [place] [address] [phone] Health Maintenance Due Date Last Done Comments [...] Additional history exists CKD GFR USE SMARTSET 05663 05/17/202111/171, 05/06/2020, 03/13/2020, Additional history exists DIABETES-HGBA1C EVERY 6 MONTHS 05/17/2021 11/17/2020, 01/23/2020, 11/07/2019, Additional history exists BREAST CANCER SCREENING DISCUSSION YEARLY AGES 40-75 10/01/2021 10/01/2020, 07/10/2019, 06/23/2018, Additional history exists CKD HGB USE SMARTSET 34196 11/17/202111/17, 11/17/2020, 05/06/2020, Additional history exists CKD PHOS USE SMARTSET 70588 11/17/202110/28, 12/24/2019, 11/07/2019, Additional history exists *DEPRESSION [...] on File Type Date Recorded Patient [employer] Expl 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
--- OUTSIDE RECORDS SUMMARY | 2023-06-01 05:10 | External Medical Summary | Summary of Care ---
Author Name Unknown Organization [facility] Address [facility] [place] [address] Care Team Providers Care Specialty Plant Supervisor Name Role Phone Kevin Whiteside DO Primary Care Provider Reason for Visit * Reason Comments [facility]: Transition of Care Encounter Details Date Type Department Care Team Description 12/11/2020 [facility] Visit [facility] [address] [place] [address] Claudia Miranda CRNP [facility] [place] [address] [phone] Restless legs syndrome*; Closed nondisplaced fracture of head of left radius with routine healing, subsequent encounter Allergies Active Allergy Reactions Severity Noted Date Comments Codeine 07/08/2014 hallucination Pollen 05/18/2019 Heparin 09/04/2009 Heparin Induced Thrombocytopenia Hydrocodone Neuro complications (Please comment) 07/28/2020 Empagliflozin Other (Please comment) Medium 05/17/2018 3 yeast infections in 6 weeks after starting Morphine And Related 09/16/1997 Hallucinations Tetanus Toxoid Other (Please comment) 06/15/2011 Passed out documented as of this encounter (statuses as of 12/14/2020) Medications Medication Sig Dispensed Refills Start Date [...] on 12/09/2020 metoprolol tartrate (LOPRESSOR) 25 MG TabletIndications:HT N, goal below 130/80,Acute diastolic congestive heart failure (HCC),Body mass index (BMI) of 50.0 to 59.9 in adult (HCC),Hypoxemia,ELISSA (obstructive sleep apnea),HTN, goal below 140/80 Take 0.5 Tabs by mouth 2 times a day. 90 Tab 3 03/13/2020 Active DIURETIC TITRATION PLANIndications:Play Therapist zahra diastolic congestive heart failure (HCC) [...] 0 05/08/2020 Active Blood Glucose Monitoring Suppl (NeoGenomics LaboratoriesUCH ULTRA 2) w/Device KIT Use to test BG values 1 Kit 0 05/20/2020 Active Glucose Blood (ONETOUCH ULTRA BLUE) STRP Check sugars 3-4 times daily, E11.9 400 Strip 3 05/22/2020 Active TRULICITY 1.5 MG/0.5ML SOPNIndications:DM type 2 nursing care encounter ([facility]),Uncontrolled type 2 diabetes mellitus with stage 3 chronic kidney disease, with long-term current use of insulin ([facility]) inject 1.5mg (one pen) under the skin once weekly 6 mL 1 05/27/2020 Active furosemide (LASIX) 40 MG TabletIndications:Ch ronic diastolic congestive heart failure ([facility]) Take 2 Tabs by mouth daily. 180 Tab 3 05/28/2020 Active Additional Information Patient taking differently: 40 mg Oral BID, Reported on 06/13/2020 colchicine 0.6 MG TabletIndications:Le ukocytoclastic vasculitis ([facility]) Take 1/2 tab daily 45 Tab 1 06/03/2020 Active clobetasol propionate (TEMOVATE) 0.05 % creamIndications:Lic hen planus Apply to rash on the hands and dorsal feet twice daily x 1 week, then as needed for flares. 30 g 1 06/03/2020 Active Tresiba FlexTouch 100 UNIT/ML Subcutaneous Solution Pen-injector (Insulin Degludec) Inject 50 Units under the skin daily. 45 mL 3 06/25/2020 Active Additional Information Patient taking differently: 55 Units Subcutaneous DAILY, Reported on 12/09/2020 BD Pen Needle Short U/F 31G X 8 MM (Insulin Pen Needle) Use 5 times daily with insulin 200 Each 11 06/27/2020 Active NovoLOG FlexPen 100 UNIT/ML Subcutaneous Solution Pen-injector (insulin aspart)Indications:T ype 2 diabetes mellitus with hemoglobin A1c goal of 7.0%-8.0% ([facility]) Inject up to 30 units [...] A1c goal of 7.0%-8.0% ([facility]) Take 1 Cap by mouth [...] as of this encounter (statuses as of 12/14/2020) Active Problems Problem Noted Date Spinal stenosis [...] as of this encounter (statuses as of 12/14/2020) Resolved Problems Problem Noted Date Resolved Date [...] as of this encounter (statuses as of 12/14/2020) Immunizations Name Administration Dates Next Due Pneumococcal [...] Sign Reading Time Taken Comments Blood Pressure 104/65 12/11/2020 8:23 PM EDT Pulse 72 12/11/2020 8:23 PM EDT Temperature 36.7 C (98 F) 12/11/2020 8:23 PM EDT Respiratory Rate 18 12/11/2020 8:23 PM EDT Oxygen Saturation 97% 12/11/2020 8:23 PM EDT Inhaled Oxygen Concentration - - Weight - - Height - - Body Mass Index - - documented in this encounter Progress Notes * Claudia Miranda CRNP - 12/11/2020 8:18 PM EDT [facility] Provider Visit Date: 12/11/2020 Time: 8:19 PM HPI: Stephanie Camp is a 65 year old female seen in her home for a provider visit. Pt is being seen today for ROSA visit. PT with medical issues of HTN, hyperlipidemia, DM , CKD, RLS and Fibromyalgia, hxof PE/DVT with IVC filter On 11/24/20 pt had woken up on the ground beside her care and was lying on her side EMS was summoned and she was taken to [facility] with syncopal episode and pain in left arm, pt was coherent and oriented upon arrival to ER, she had a Ct scan of head negative for any abnormalities and facial scan negativefor any facial injury, her arm ct showed fracture of a nondisplaced head of the radius ortho was consulted and pt did not require any operative intervention at that time just conservative treatment. Her syncopal episode was thought to be related to medication she is on cymbalta, neurotin and tramadol for her fibromyalgia, and apparently she had a similar episode a couple of months ago they felt was related to this as well, Also noted to have orthostaic BP at that time with parameters placed on her BB therapy. Today I have placed a hold on the BB therapy as she is still running low, she also had her wellbutrin discontinued and ropinorole cut down to half a tablet She does attend physical therapy up to 3x's a week for leg weakness and she was in ER on 10/24/20 for increase right knee pain status post fall She is to follow up with orthopedics yesterday which shows healing and also she is able to exercisethe arm and does not have to wear the sling at this time, she is not allowed to lift until next appt 01/08/21 ROS: Review of Systems Constitutional: Positive for activity change. Respiratory: Positive for chest tightness. Negative for shortness of breath. Cardiovascular: Negative for chest pain. Musculoskeletal: Left arm with movement stiffness Neurological: Negative for dizziness, weakness and light-headedness. Physical Exam: BP 104/65 | Pulse 72 | Temp 36.7 C (98 F) | Resp 18 | LMP 03/11/2003 | SpO2 97% Physical Exam Cardiovascular: Rate and Rhythm: Regular rhythm. Heart sounds: Normal heart sounds. Pulmonary: Breath sounds: Normal breath sounds. Musculoskeletal: Right lower leg: No edema. Left lower leg: No edema. Comments: Left arm stiffness decrease ROM Skin: General: Skin is warm and dry. Neurological: Mental Status: She is alert and oriented to person, place, and time. Assessment/Plan: 1. Restless legs syndrome Pt had syncopal episode during her fall she has had a decrease in her ropinorole and also her wellbutrin was discontinued, Also blood pressure was running low her BB therapy had been placed on hold she is to continue to monitor her BP and to call if her blood pressure starts in systolic 130's we did check her wrist cuff with a manual and it was accurate 2. Closed nondisplaced fracture of head of left radius with routine healing, subsequent encounter Pt is following with orthopedics she had appt yesterday her sling is removed and she is able to do some light exercise she will follow up in December with orthopedics Home Interventions Provided: Reinforced current Plan of Care, including self-management and medication regimen TATIANA Chavez documented in this encounter Plan of Treatment Upcoming Encounters Date Type Specialty Care Team Description 12/17/2020 [facility] Rema Real LSW [address] [place] [address] [phone] 01/08/2021 Office Visit Orthopedics Zack Teague, [address] [place] [address] [phone] 01/14/2021 Office Visit Family Medicine Kevin Whiteside, [address] [place] [address] [phone] 01/14/2021 Office Visit Pharmacy [facility] Jeramie [address] [place] [address] 02/02/2021 Office Visit Cardiology Rey Woodall MD [address] [place] [address] [phone] 03/18/2021 Office Visit Nephrology Erik Lenz MD [address] [place] [address] [phone] 08/18/2021 Office Visit Pulmonary Celsa Tafoya CRNP [address] [place] [address] [phone] Health Maintenance Due Date Last Done Comments [...] Additional history exists CKD GFR USE SMARTSET 77280 05/17/202111/17, 05/06/2020, 03/13/2020, Additional history exists DIABETES-HGBA1C EVERY 6 MONTHS 05/17/2021 11/17/2020, 01/23/2020, 11/07/2019, Additional history exists BREAST CANCER SCREENING DISCUSSION YEARLY AGES 40-75 10/01/2021 10/01/2020, 07/10/2019, 06/23/2018, Additional history exists CKD HGB USE SMARTSET 41385 11/17/202111/17, 11/17/2020, 05/06/2020, Additional history exists CKD PHOS USE SMARTSET 10896 11/17/202110/28, 12/24/2019, 11/07/2019, Additional history exists *DEPRESSION [...] this encounter Visit Diagnoses Diagnosis Restless legs syndrome- Primary Restless legs syndrome (RLS) Closed nondisplaced fracture of head of left radius with routine healing, subsequent encounter documented in this encounter Advance Directives Documents on File Type Date Recorded Patient Combination Window Installer Expl 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
--- OUTSIDE RECORDS SUMMARY | 2023-06-01 05:10 | External Medical Summary | Summary of Care ---
Author Name Unknown Organization [facility] Address [facility] [place] [address] Care Team Providers Care Mosaic Tile Maker Name Role Phone Kevin Whiteside DO Primary Care Provider Reason for Visit * Reason Comments [facility]: Maintenance Encounter Details Date Type Department Care Team Description 12/17/2020 [facility] Visit [facility] [address] [place] [address] Rema Real, SURVEYOR GEOPHYSICAL PROSPECTING [address] [facility] [place] [address] [phone] Allergies Active Allergy Reactions Severity Noted Date Comments Codeine 07/08/2014 hallucination Pollen 05/18/2019 Heparin 09/04/2009 Heparin Induced Thrombocytopenia Hydrocodone Neuro complications (Please comment) 07/28/2020 Empagliflozin Other (Please comment) Medium 05/17/2018 3 yeast infections in 6 weeks after starting Morphine And Related 09/16/1997 Hallucinations Tetanus Toxoid Other (Please comment) 06/15/2011 Passed out documented as of this encounter (statuses as of 12/17/2020) Medications Medication Sig Dispensed Refills Start Date [...] 90 Tab 3 03/13/2020 Active DIURETIC TITRATION PLANIndications:Head Baker zahra diastolic congestive heart failure (HCC) If [...] long-term current use of insulin ([facility]) inject 1.5mg (one pen) under the skin once weekly 6 mL 1 05/27/2020 Active furosemide (LASIX) 40 MG TabletIndications:Ch ronic diastolic congestive heart failure ([facility]) Take 2 Tabs by mouth daily. 180 Tab 3 05/28/2020 Active Additional Information Patient taking differently: 40 mg Oral BID, Reported on 06/13/2020 colchicine 0.6 MG TabletIndications:Le ukocytoclastic vasculitis ([facility]) Take [...] 7.0%-8.0% ([facility]) Inject up to 30 units [...] of 7.0%-8.0% ([facility]) Take 1 Cap by mouth [...] as of this encounter (statuses as of 12/17/2020) Active Problems Problem Noted Date Spinal stenosis [...] as of this encounter (statuses as of 12/17/2020) Resolved Problems Problem Noted Date Resolved Date [...] as of this encounter (statuses as of 12/17/2020) Immunizations Name Administration Dates Next Due Pneumococcal [...] Progress Notes * Rema Real LSW - 12/17/2020 12:01 PM EDT SW met with Stephanie for follow up and supportive visit. Addressed the following: Recent d/c in Wellbutrin-no falls since home from Hospital, improvement in s/s of depression =more energy, more interest, still get overwhelmed at times but over all better. Discussed obtaining in home services-SW will make referral to [facility] -she agrees and gives permission. We did discuss criteria for AAA services. She does not feel she will meet and declines referral to AAA. Still obtaining stimulus check-discussed how to obtain. Viewed web site and information. Can cook own food, discussed possibility of HDM -but not interested Considering knee replacement. STEFANY will return in one month. January 13 at 1100 am. documented in this encounter Plan of Treatment Upcoming Encounters Date Type Specialty Care Team Description 12/22/2020 Home Visit [facility] Vera Capellan RN [address] [place] [address] [phone] 12/29/2020 Home Visit Family Medicine Magaly Morales, Community Health Enterprise Architect [address], [place] [id number] 01/08/2021 Office Visit Orthopedics Zack Teague, [address] [place] [address] [phone] 01/13/2021 Home Visit [facility] Rema Real LSW [address] [address] [phone] 01/14/2021 Office Visit Family Medicine Kevin Whiteside, [address] [place] [address] [phone] 01/14/2021 Office Visit Pharmacy [facility] Jeram[place] [address] [address] 02/02/2021 Office Visit Cardiology Rey Woodall MD [address] [place] [address] [phone] 03/18/2021 Office Visit Nephrology Erik Lenz MD [address] [place], [place] [address] [address] [phone] 08/18/2021 Office Visit Pulmonary Celsa Tafoya CRNP [address] [place] [address] [phone] Health Maintenance Due Date Last Done Comments [...] Additional history exists CKD GFR USE SMARTSET 74658 05/17/202111/17, 05/06/2020, 03/13/2020, Additional history exists DIABETES-HGBA1C EVERY 6 MONTHS 05/17/2021 11/17/2020, 01/23/2020, 11/07/2019, Additional history exists BREAST CANCER SCREENING DISCUSSION YEARLY AGES 40-75 10/01/2021 10/01/2020, 07/10/2019, 06/23/2018, Additional history exists CKD HGB USE SMARTSET 88344 11/17/202111/17, 11/17/2020, 05/06/2020, Additional history exists CKD PHOS USE SMARTSET 23988 11/17/202110/28, 12/24/2019, 11/07/2019, Additional history exists *DEPRESSION [...] Documents on File Type Date Recorded Patient Lump Machine Operator Expl anation Advanced Directive 08/22/2009 [...]
--- OUTSIDE RECORDS SUMMARY | 2023-06-01 05:10 | External Medical Summary | Summary of Care ---
Author Name Unknown Organization [facility] Address [place] [address] Care Team Providers Care Tool And Equipment Rental Clerk Name Role Phone Kevin Whiteside DO Primary Care Provider Reason for Visit * Reason Onset Date Comments [facility]: Maintenance 12/10/2020 Encounter Details Date Type Department Care Team Description 12/10/2020 Telephone [facility], [facility] [address] [place] [address] Vera Capellan, RN [address] [place] [address] [phone] [facility]: Maintenance Allergies Active Allergy Reactions Severity Noted Date Comments Codeine 07/08/2014 hallucination Pollen 05/18/2019 Heparin 09/04/2009 Heparin Induced Thrombocytopenia Hydrocodone Neuro complications (Please comment) 07/28/2020 Empagliflozin Other (Please comment) Medium 05/17/2018 3 yeast infections in 6 weeks after starting Morphine And Related 09/16/1997 Hallucinations Tetanus Toxoid Other (Please comment) 06/15/2011 Passed out documented as of this encounter (statuses as of 12/10/2020) Medications Medication Sig Dispensed Refills Start Date [...] 90 Tab 3 03/13/2020 Active DIURETIC TITRATION PLANIndications:Postal Supervisor zahra diastolic congestive heart failure (HCC) [...] MG/0.5ML SOPNIndications:DM type 2 nursing care encounter ([facility]),Uncontrolled type 2 diabetes mellitus with stage 3 chronic kidney disease, with long-term current use of insulin ([facility]) inject 1.5mg (one pen) under the skin once weekly 6 mL 1 05/27/2020 Active furosemide (LASIX) 40 MG TabletIndications:Ch ronic diastolic congestive heart failure ([facility]) Take 2 Tabs by mouth daily. 180 Tab 3 05/28/2020 Active Additional Information Patient taking differently: 40 mg Oral BID, Reported on 06/13/2020 colchicine 0.6 MG TabletIndications:Le ukocytoclastic vasculitis ([facility]) Take 1/2 [...] of 7.0%-8.0% ([facility]) Inject up to 30 units [...] goal of 7.0%-8.0% ([facility]) Take 1 Cap by mouth [...] as of this encounter (statuses as of 12/10/2020) Active Problems Problem Noted Date Spinal stenosis [...] Overview: ICD-10 update of inactive term [place] filter in place 08/19/2014 History of pulmonary embolus (PE) 2013 Statin intolerance 07/16/2014 HTN, goal below 130/80 02/22/2014 Venous insufficiency 02/07/2013 ELISSA (obstructive sleep apnea) 09/16/2011 Overview: CPAP 11 cwp Mild, AHI 11.3 but with significant nocturnal hypoxemia Dicks Postsurgical hypothyroidism 06/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 documented as of this encounter (statuses as of 12/10/2020) Resolved Problems Problem Noted Date Resolved Date [...] as of this encounter (statuses as of 12/10/2020) Immunizations Name Administration Dates Next Due Pneumococcal [...] Miscellaneous Notes * Telephone Encounter - Al Mac PA-C - 12/10/2020 3:22 PM EDT Please hold one more day and have pt checked again tomorrow am. * Telephone Encounter - Vera Capellan RN - 12/10/2020 11:37 AM EDT Good jaime LES was out to do BP check this am as pt was hypotensive yesterday am. Pt held pm Metoprolol Tartrate yesterday as well as am dose today. LES reports BP is 100/58 sitting and 94/60 standing today. Please advise on if pt should continue Metoprolol or continue to hold. Thank you, Vera documented in this encounter Plan of Treatment Upcoming Encounters Date Type Specialty Care Team Description 12/11/2020 [facility] Visit [facility] Claudia Miranda CRNP [address] [place] [address] [phone] 12/17/2020 Home Visit [facility] Rema Real LSW [address] [place] [address] [phone] 01/08/2021 Office Visit Orthopedics Zack Teauge, [address] [place] [address] [phone] 01/14/2021 Office Visit Family Medicine Kevin Whiteside, [address] [place] [address] [phone] 01/14/2021 Office Visit Pharmacy [facility] Jeramie [address] [place] [address] 02/02/2021 Office Visit Cardiology Rey Woodall MD [address] [place] [address] [phone] 03/18/2021 Office Visit Nephrology Erik Lenz MD [address] [place] [address], [place] [address] [phone] 08/18/2021 Office Visit Pulmonary Celsa Tafoya CRNP [address] [place] [address] [phone] Health Maintenance Due Date Last Done Comments [...] Additional history exists CKD GFR USE SMARTSET 03184 05/17/202111/17, 05/06/2020, 03/13/2020, Additional history exists DIABETES-HGBA1C EVERY 6 MONTHS 05/17/2021 11/17/2020, 01/23/2020, 11/07/2019, Additional history exists BREAST CANCER SCREENING DISCUSSION YEARLY AGES 40-75 10/01/2021 10/01/2020, 07/10/2019, 06/23/2018, Additional history exists CKD HGB USE SMARTSET 90261 11/17/202111/17, 11/17/2020, 05/06/2020, Additional history exists CKD PHOS USE SMARTSET 52386 11/17/202110/28, 12/24/2019, 11/07/2019, Additional history exists *DEPRESSION [...] on File Type Date Recorded Patient Dry Mop Maker Expl 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
--- OUTSIDE RECORDS SUMMARY | 2023-06-01 05:10 | External Medical Summary | Summary of Care ---
Author Name Unknown Organization [facility] Address [place] [address] Care Team Providers Care Psychologist Industrial Organizational Name Role Phone Kevin Whiteside DO Primary Care Provider Reason for Visit * Reason Onset Date Comments [facility]: Maintenance 12/10/2020 Encounter Details Date Type Department Care Team Description 12/10/2020 Telephone [facility], [facility] [address] [place] [address] Vera Capellan, RN [address] [facility] [place] [address] [phone] [facility]: Maintenance Allergies Active Allergy [...] 90 Tab 3 03/13/2020 Active DIURETIC TITRATION PLANIndications:Driver Courier zahra diastolic congestive heart failure (HCC) If [...] SOPNIndications:DM type 2 nursing care encounter ([facility]),Uncontrolled type 2 diabetes mellitus with stage 3 chronic kidney disease, with long-term current use of insulin ([facility]) inject 1.5mg (one pen) under the skin once weekly 6 mL 1 05/27/2020 Active furosemide (LASIX) 40 MG TabletIndications:Ch ronic diastolic congestive heart failure ([facility]) Take 2 Tabs by mouth daily. 180 Tab 3 05/28/2020 Active Additional Information Patient taking differently: 40 mg Oral BID, Reported on 06/13/2020 colchicine 0.6 MG TabletIndications:Le ukocytoclastic vasculitis ([facility]) Take 1/2 tab daily 45 [...] of 7.0%-8.0% ([facility]) Inject up to 30 units [...] goal of 7.0%-8.0% ([facility]) Take 1 Cap by mouth [...] 10/14/2014 Overview: ICD-10 update of inactive term [place] filter in place 08/19/2014 History of pulmonary [...] Encounter - Al Mac PA-C - 12/10/2020 6:03 PM EDT This can be a LES and preferably BP checked around same kuldeep of day * Telephone Encounter - Al Mac PA-C - 12/10/2020 3:22 PM EDT Please hold one more day and have pt checked again tomorrow am. * Telephone Encounter - Vera Capellan RN - 12/10/2020 11:37 AM EDT Good jaime SALDANA was out to do BP check this [...] Specialty Care Team Description 12/11/2020 Home Visit [facility] Claudia Miranda CRNP [address] [place] [address] [phone] 12/17/2020 Home Visit [facility] Rema Real LSW [address] [place] [address] [phone] 01/08/2021 Office Visit Orthopedics Zack Teague, [address] [place] [address] [phone] 01/14/2021 Office Visit Family Medicine Kevin Whiteside, [address] [place] [address] [phone] 01/14/2021 Office Visit Pharmacy [facility] Moe Bobo [address] [place] [address] 02/02/2021 Office Visit Cardiology Rey Woodall MD [address] [place] [address] [phone] 03/18/2021 Office Visit Nephrology Erik Lenz MD [address] [facility] [place] [address] 08/18/2021 Office Visit Pulmonary Celsa Tafoya CRNP [address] [place] [address] Health Maintenance Due [...] Additional history exists CKD GFR USE SMARTSET 92095 05/17/202111/17, 05/06/2020, 03/13/2020, Additional history exists DIABETES-HGBA1C EVERY 6 MONTHS 05/17/2021 11/17/2020, 01/23/2020, 11/07/2019, Additional history exists BREAST CANCER SCREENING DISCUSSION YEARLY AGES 40-75 10/01/2021 10/01/2020, 07/10/2019, 06/23/2018, Additional history exists CKD HGB USE SMARTSET 43444 11/17/202111/17, 11/17/2020, 05/06/2020, Additional history exists CKD PHOS USE SMARTSET 23969 11/17/202110/28, 12/24/2019, 11/07/2019, Additional history exists *DEPRESSION [...] on File Type Date Recorded Patient Wood Shop Teacher Expl 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
--- OUTSIDE RECORDS SUMMARY | 2023-06-01 05:10 | External Medical Summary | Summary of Care ---
Author Name Unknown Organization [place] [address] Care Team Providers Care Event Planning Intern Name Role Phone Kevin Whiteside DO Primary Care Provider Reason for Visit * Reason Comments [facility]: Acute Encounter Details Date Type Department Care Team Description 12/11/2020 Home Visit Care Coordination [address] [place] [address] Mira Duong, [facility] [address] [place] [address] [phone] Allergies Active Allergy Reactions Severity Noted Date Comments Codeine 07/08/2014 hallucination Pollen 05/18/2019 Heparin 09/04/2009 Heparin Induced Thrombocytopenia Hydrocodone Neuro complications (Please comment) 07/28/2020 Empagliflozin Other (Please comment) Medium 05/17/2018 3 yeast infections in 6 weeks after starting Morphine And Related 09/16/1997 Hallucinations Tetanus Toxoid Other (Please comment) 06/15/2011 Passed out documented as of this encounter (statuses as of 12/11/2020) Medications Medication Sig Dispensed Refills Start Date [...] 90 Tab 3 03/13/2020 Active DIURETIC TITRATION PLANIndications:Post Tensioning Ironworker zahra diastolic congestive heart failure (HCC) If [...] long-term current use of insulin ([facility]) inject 1.5mg (one pen) under the skin once weekly 6 mL 1 05/27/2020 Active furosemide (LASIX) 40 MG TabletIndications:Ch ronic diastolic congestive heart failure ([facility]) Take 2 Tabs by mouth daily. 180 Tab 3 05/28/2020 Active Additional Information Patient taking differently: 40 mg Oral BID, Reported on 06/13/2020 colchicine 0.6 MG TabletIndications:Le ukocytoclastic vasculitis ([facility]) Take 1/2 tab daily 45 Tab 1 [...] goal of 7.0%-8.0% ([facility]) Inject up to 30 units with meals [...] A1c goal of 7.0%-8.0% ([facility]) Take 1 Cap by mouth 3 times [...] as of this encounter (statuses as of 12/11/2020) Active Problems Problem Noted Date Spinal stenosis [...] 10/14/2014 Overview: ICD-10 update of inactive term [place] filter in place 08/19/2014 History of pulmonary embolus (PE) 2013 Statin intolerance 07/16/2014 HTN, goal below 130/80 02/22/2014 Venous insufficiency 02/07/2013 ELISSA (obstructive sleep apnea) 09/16/2011 Overview: CPAP 11 cwp Mild, AHI 11.3 but with significant nocturnal hypoxemia Dicks Postsurgical hypothyroidism 06/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 documented as of this encounter (statuses as of 12/11/2020) Resolved Problems Problem Noted Date Resolved Date [...] as of this encounter (statuses as of 12/11/2020) Immunizations Name Administration Dates Next Due Pneumococcal [...] of this encounter Progress Notes * Mira Duong, [facility] - 12/11/2020 9:27 AM EDT LES went for home visit in the am for accute BP per RNCM. Sitting it was 110/57. Notified Claudia Merritt'kassandra. documented in this encounter Plan of Treatment Upcoming Encounters Date Type Specialty Care Team Description 12/11/2020 Home Visit [facility] Claudia Miranda CRNP [address] [place] [address] [phone] 12/17/2020 Home Visit [facility] Rema Real LSW [address] [place] [address] [phone] 01/08/2021 Office Visit Orthopedics Zack Teague, DO [address] [place] [address] [phone] 01/14/2021 Office Visit Family Medicine Kevin Whiteside, [address] [place] [address] [phone] 01/14/2021 Office Visit Pharmacy [facility] [address] [place] [address] 02/02/2021 Office Visit Cardiology Rey Woodall MD [address] [place] [address] [phone] 03/18/2021 Office Visit Nephrology Erik Lenz MD [address] [place] [address] [phone] 08/18/2021 Office Visit Pulmonary Celsa Tafoya CRNP [address] [place] [address] [phone] Health Maintenance Due Date Last Done Comments [...] Additional history exists CKD GFR USE SMARTSET 50633 05/17/202111/17, 05/06/2020, 03/13/2020, Additional history exists DIABETES-HGBA1C EVERY 6 MONTHS 05/17/2021 11/17/2020, 01/23/2020, 11/07/2019, Additional history exists BREAST CANCER SCREENING DISCUSSION YEARLY AGES 40-75 10/01/2021 10/01/2020, 07/10/2019, 06/23/2018, Additional history exists CKD HGB USE SMARTSET 65994 11/17/202111/17, 11/17/2020, 05/06/2020, Additional history exists CKD PHOS USE SMARTSET 88969 11/17/202110/28, 12/24/2019, 11/07/2019, Additional history exists *DEPRESSION [...] on File Type Date Recorded Patient Industrial Insulator Expl 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 patient have Health Care Power of Attor shkair? No
--- OUTSIDE RECORDS SUMMARY | 2023-06-01 05:10 | External Medical Summary | Summary of Care ---
Author Name Unknown Organization [place] [address] Care Team Providers Care Boatwright Name Role Phone Carey Whitesidelidia Ocampomelinda Primary Care Provider Encounter Details Date Type Department Care Team Description 12/10/2020 Home Visit Care Coordination [address], [place] [id number] Mira Duong, [facility] Business Analysis Professional [address] [place], [place] [id number] Allergies Active Allergy Reactions Severity Noted Date [...] 90 Tab 3 03/13/2020 Active DIURETIC TITRATION PLANIndications:Manager Library zahra diastolic congestive heart failure (HCC) If [...] MG/0.5ML SOPNIndications:DM type 2 nursing care encounter ([facility]),Uncontrolled type 2 diabetes mellitus with stage 3 chronic kidney disease, with long-term current use of insulin ([facility]) inject 1.5mg (one pen) under the skin once weekly 6 mL 1 05/27/2020 Active furosemide (LASIX) 40 MG TabletIndications:Ch ronic diastolic congestive heart failure ([facility]) Take 2 Tabs by mouth daily. 180 Tab 3 05/28/2020 Active Additional Information Patient taking differently: 40 mg Oral BID, Reported on 06/13/2020 colchicine 0.6 MG TabletIndications:Le ukocytoclastic vasculitis ([facility]) Take 1/2 tab daily 45 [...] goal of 7.0%-8.0% ([facility]) Inject up to 30 units [...] A1c goal of 7.0%-8.0% ([facility]) Take 1 Cap by mouth [...] 10/14/2014 Overview: ICD-10 update of inactive term [place] filter in place 08/19/2014 History of pulmonary [...] Reading Time Taken Comments Blood Pressure 100/58 12/10/2020 10:14 AM EDT Pulse 71 12/10/2020 10:14 AM EDT Temperature 36.8 C (98.2 F) 12/10/2020 10:14 AM E DT Respiratory Rate - - Oxygen Saturation 96% 12/10/2020 10:14 AM EDT Inhaled Oxygen Concentration - - Weight - - Height - - Body Mass Index - - documented in this encounter Progress Notes * Clouser, Mira P, [facility] Business Analysis Professional - 12/10/2020 9:53 AM EDT LES did home visit to check BP. When she arrived the pt was sitting on the chair watching TV. She stated she is doing a little better. She doesn't know how she is doing to wash her dishes with the sling on her left arm. BP sitting was 100/58 and standing was 94/60. She was asking about getting the Covid shot and I told her that [facility] will be giving it to her. She also asked if she should start back on a medication that the RN told her about yesterday. LES send note to Vera regarding this question. Electronically signed by Mira Duong [facility] Business Analysis Professional at 12/10/2020 10:16 AM EDT documented in this encounter Plan of Treatment Upcoming Encounters Date Type Specialty Care Team Description 12/11/2020 Home Visit [facility] Claudia Miranda CRNP [address] [place] [address] [phone] 12/17/2020 Home Visit [facility] Rema Real LSW [address] [place] [address] [phone] 01/08/2021 Office Visit Orthopedics Zack Teague DO [address] [place] [address] [phone] 01/14/2021 Office Visit Family Medicine Kevin Whiteside, [address] [place] [address] [phone] 01/14/2021 Office Visit Pharmacy [facility] [address] [place] [address] 02/02/2021 Office Visit Cardiology Rey Woodall MD [address] [place] [address] [phone] 03/18/2021 [facility] [address] [phone] 08/18/2021 Office Visit Pulmonary Celsa Tafoya CRNP [address] [place] [address] [phone] Health Maintenance Due Date Last Done Comments [...] Additional history exists CKD GFR USE SMARTSET 01364 05/17/202111/17, 05/06/2020, 03/13/2020, Additional history exists DIABETES-HGBA1C EVERY 6 MONTHS 05/17/2021 11/17/2020, 01/23/2020, 11/07/2019, Additional history exists BREAST CANCER SCREENING DISCUSSION YEARLY AGES 40-75 10/01/2021 10/01/2020, 07/10/2019, 06/23/2018, Additional history exists CKD HGB USE SMARTSET 61487 11/17/202111/17, 11/17/2020, 05/06/2020, Additional history exists CKD PHOS USE SMARTSET 20519 11/17/202110/28, 12/24/2019, 11/07/2019, Additional history exists *DEPRESSION [...] Documents on File Type Date Recorded Patient First Assistant Manager Expl 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
--- OUTSIDE RECORDS SUMMARY | 2023-06-01 05:10 | External Medical Summary | Summary of Care ---
Author Name Unknown Organization [facility] Address [place], [place] [address] Care Team Providers Care Executive Director Of Nursing Name Role Phone Kevin Whiteside DO Primary Care Provider Reason for Visit * Reason Onset Date Comments Appointment 12/17/2020 bp is high bs 30 0+ Encounter Details Date Type Department Care Team Description 12/17/2020 Telephone Family Practice [facility] [address] [place] [...] 0 05/08/2020 Active Blood Glucose Monitoring Suppl (AdviseHubTOUCH ULTRA 2) w/Device KIT Use to test BG values 1 Kit 0 05/20/2020 Active Glucose Blood (ONETOUCH ULTRA BLUE) STRP Check sugars 3-4 times daily, E11.9 400 Strip 3 05/22/2020 Active TRULICITY 1.5 MG/0.5ML SOPNIndications:DM type 2 nursing care encounter ([facility]),Uncontrolled type 2 diabetes mellitus with stage 3 chronic kidney disease, with long-term current use of insulin ([facility]) inject 1.5mg (one pen) under the skin once weekly 6 mL 1 05/27/2020 Active furosemide (LASIX) 40 MG TabletIndications:C hronic diastolic congestive heart failure ([facility]) Take 2 Tabs by mouth daily. 180 Tab 3 05/28/2020 Active Additional Information Patient taking differently: 40 mg Oral BID, Reported on 06/13/2020 colchicine 0.6 MG TabletIndications:L eukocytoclastic vasculitis ([facility]) Take 1/2 tab daily 45 [...] of 7.0%-8.0% ([facility]) Inject up to 30 units [...] 10/14/2014 Overview: ICD-10 update of inactive term [place] filter in place 08/19/2014 History of [...] call. * Telephone Encounter - Al Peace [facility] - 12/18/2020 9:13 AM EDT Patient Phone Numbers Spoke with patient Patient reports that over the past 2 days her blood sugars have been elevated into the 300's throughout the day, despite increased in novolog per sliding scale blood sugars remained elevated into [id number]'s, since last fall 12/11 - patient's activity [...] 8:51 AM EDT I will send to [facility]. Nursing please inform pt of below. [...] appt with the PA or have BRAEDENVinicius samaniego? * Telephone Encounter - Kevin Whiteside [...] Home Vera Capellan, RN [address] [place] [address] [phone] 12/29/2020 Home Visit Family Medicine Magaly Morales, Community [facility] Scada Technician [address] [place] [address] [phone] 01/08/2021 Office Visit Orthopedics Zack Teague DO [address] [place] [address] [phone] 01/13/2021 Home Visit [facility] Rema Real LSW [address] [place] [address] [phone] 01/14/2021 Office Visit Family Medicine Kevin Whiteside DO [address] [place] [address] [phone] 01/14/2021 Office Visit Pharmacy [facility] [address] [place] [address] 02/02/2021 Office Visit Cardiology Rey Woodall MD [address] [place] [address] [phone] 03/18/2021 Office Visit Nephrology Erik Lenz MD [address] [place] [address] [phone] 08/18/2021 Office Visit Pulmonary Celsa Tafoya CRNP [address] [facility] [place] [address] [phone] Health Maintenance Due Date Last Done Comments [...] Additional history exists CKD GFR USE SMARTSET 75866 05/17/202111/171, 05/06/2020, 03/13/2020, Additional history exists DIABETES-HGBA1C EVERY 6 MONTHS 05/17/2021 11/17/2020, 01/23/2020, 11/07/2019, Additional history exists BREAST CANCER SCREENING DISCUSSION YEARLY AGES 40-75 10/01/2021 10/01/2020, 07/10/2019, 06/23/2018, Additional history exists CKD HGB USE SMARTSET 42308 11/17/202111/17, 11/17/2020, 05/06/2020, Additional history exists CKD PHOS USE SMARTSET 32956 11/17/202110/28, 12/24/2019, 11/07/2019, Additional history exists *DEPRESSION [...] Documents on File Type Date Recorded Patient Wireless Sales Associate Expl anation Advanced Directive 08/22/2009 [...]
--- OUTSIDE RECORDS SUMMARY | 2023-06-01 05:10 | External Medical Summary | Summary of Care ---
Author Name Unknown Organization [facility] Address [place] [address] Care Team Providers Care Housing Director Name Role Phone Kevin Whiteside DO Primary Care Provider Reason for Visit * Reason Onset Date Comments [facility]: Maintenance 12/10/2020 Encounter Details Date Type Department Care Team Description 12/10/2020 Telephone [facility] [address] [place] [address] Vera Capellan, RN [address] [place] [place] [address] [phone] [facility]: Maintenance Allergies Active Allergy [...] 90 Tab 3 03/13/2020 Active DIURETIC TITRATION PLANIndications: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 180 Tab 3 05/28/2020 Active Additional Information Patient taking differently: 40 mg Oral BID, Reported on 06/13/2020 colchicine 0.6 MG TabletIndications:Le ukocytoclastic vasculitis ([facility]) Take 1/2 tab daily 45 [...] 10/14/2014 Overview: ICD-10 update of inactive term [place] filter in place 08/19/2014 History of pulmonary [...] Hypervolemia 07/13/2018 08/26/2018 Heparin-induced thrombocytopenia 06/12/2018 08/26/2018 LESIE (acute kidney injury) 06/12/20182017 Uncontrolled type 2 [...] encounter Miscellaneous Notes * Telephone Encounter - Claudia Miranda CRNP - 12/11/2020 9:07 AM EDT I am seeing pt for ROSA today, I will address any medication changes at that time and a of course vitals thanks * Telephone Encounter - Al Mac PA-C - 12/10/2020 6:03 PM EDT This can be a LES and preferably BP checked around same kuldeep of day * Telephone Encounter - Al Mac PA-C - 12/10/2020 3:22 PM EDT Please hold one more day and have pt checked again tomorrow am. * Telephone Encounter - Vera Capellan RN - 12/10/2020 11:37 AM EDT Mk sandoval CHA was out to do BP check this [...] Specialty Care Team Description 12/11/2020 [facility] Visit [facility] Claudia Miranda CRNP [address] [place] [address] [phone] 12/17/2020 [facility] Visit [facility] Rema Real LSW [address] [place] [address] [phone] 01/08/2021 Office Visit Orthopedics Zack Teague, [address] [place] [address] [phone] 01/14/2021 Office Visit Family Medicine Kevin Whiteside, [address] [place] [address] [phone] 01/14/2021 Office Visit Pharmacy [facility] Jer[place] [address] [place] [address] 02/02/2021 Office Visit Cardiology Rey Woodall MD [address] [place] [address] [phone] 03/18/2021 Office Visit Nephrology Erik Lenz MD [address] [place] [address] [phone] 08/18/2021 Office Visit Pulmonary Celsa Tafoya CRNP [address] [place] [address] [phone] Health Maintenance Due Date Last Done Comments [...] Additional history exists CKD GFR USE SMARTSET 08238 05/17/202111/17, 05/06/2020, 03/13/2020, Additional history exists DIABETES-HGBA1C EVERY 6 MONTHS 05/17/2021 11/17/2020, 01/23/2020, 11/07/2019, Additional history exists BREAST CANCER SCREENING DISCUSSION YEARLY AGES 40-75 10/01/2021 10/01/2020, 07/10/2019, 06/23/2018, Additional history exists CKD HGB USE SMARTSET 86335 11/17/202111/17, 11/17/2020, 05/06/2020, Additional history exists CKD PHOS USE SMARTSET 85670 11/17/202110/28, 12/24/2019, 11/07/2019, Additional history exists *DEPRESSION [...] Documents on File Type Date Recorded Patient Movie Stunt Performer Expl 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
--- OUTSIDE RECORDS SUMMARY | 2023-06-01 05:10 | External Medical Summary | Summary of Care ---
Author Name Unknown Organization [place] [address] Care Team Providers Care Visual Manager Name Role Phone Kevin Whiteside DO Primary Care Provider Reason for Visit * Reason Comments [facility]: Maintenance Encounter Details Date Type Department Care Team Description 12/09/2020 [facility] 132 [facility] [place] [address] Vera Capellan RN [facility] [address] [phone] Benign hypertensive heart and kidney disease with [...] as of this encounter (statuses as of 12/09/2020) Medications Medication Sig Dispensed Refills Start Date [...] on 12/09/2020 metoprolol tartrate (LOPRESSOR) 25 MG TabletIndications: HTN, goal below 130/80,Acute diastolic congestive heart failure (HCC),Body mass index (BMI) of 50.0 to 59.9 in adult (HCC),Hypoxemia,OS A (obstructive sleep apnea),HTN, goal below 140/80 Take 0.5 Tabs by mouth 2 times a day. 90 Tab 3 0 Active DIURETIC TITRATION PLANIndications:Ch ronic [...] 0 0 Active Blood Glucose Monitoring Suppl (SUB ONE TECHNOLOGYUCH ULTRA 2) w/Device KIT Use to test [...] 1 0 Active furosemide (LASIX) 40 MG TabletIndications: Chronic diastolic congestive heart failure ([facility]) Take 2 Tabs by mouth daily. 180 Tab 3 0 Active Additional Information Patient taking differently: 40 mg Oral BID, Reported on 06/13/2020 colchicine 0.6 MG TabletIndications: Leukocytoclastic vasculitis ([facility]) Take 1/2 tab daily 45 Tab 1 0 Active clobetasol propionate (TEMOVATE) 0.05 % creamIndications:L ichen planus Apply to rash on the hands and dorsal feet twice daily x 1 week, then as needed for flares. 30 g 1 0 Active Tresiba FlexTouch 100 UNIT/ML Subcutaneous Solution Pen-injector (Insulin Degludec) Inject 50 Units under the skin daily. 45 mL 3 0 Active Additional Information Patient taking differently: 55 [...] of 7.0%-8.0% ([facility]) Take 1 Cap by mouth [...] Pain, Severe. 90 Tab 0 1 Active Lidocaine 5 % External Patch (Lidoderm) Place 1 Patch topically on the skin daily. 0 Active Acetaminophen 500 MG Oral Tablet (Acetaminophen Extra Strength) Take 500 mg by mouth every 6 hours as needed. 0 Active rOPINIRole (REQUIP) 2 MG TabletIndications: Restless legs syndrome Take 1 Tab by mouth at bedtime. 90 Tab 3 0 021 Discontinued First-Mouthwash BLM Mouth/Throat SuspensionIndicati ons:Pain in mouth Swish and spit 30 mL 4 times a day. 237 mL 1 0 021 Discontinued(Me dication List Clean Up) buPROPion HCl ER (XL) 150 MG Oral Tablet Extended Release 24 Hour (Wellbutrin XL)Indications:Mil d episode of recurrent major depressive disorder (HCC) Take 1 Tab by mouth daily. 30 Tab 5 1 021 Discontinued(Il dication List Clean Up) documented as of this encounter (statuses as of 12/09/2020) Active Problems Problem Noted Date Spinal stenosis [...] 10/14/2014 Overview: ICD-10 update of inactive term [place] filter in place 08/19/2014 History of pulmonary embolus (PE) 2013 Statin intolerance 07/16/2014 HTN, goal below 130/80 02/22/2014 Venous insufficiency 02/07/2013 ELISSA (obstructive sleep apnea) 09/16/2011 Overview: CPAP 11 cwp Mild, AHI 11.3 but with significant nocturnal hypoxemia Dicks Postsurgical hypothyroidism 06/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 documented as of this encounter (statuses as of 12/09/2020) Resolved Problems Problem Noted Date Resolved Date [...] as of this encounter (statuses as of 12/09/2020) Immunizations Name Administration Dates Next Due Pneumococcal [...] Sign Reading Time Taken Comments Blood Pressure 90/50 12/09/2020 10:24 AM EDT Pulse 86 12/09/2020 10:08 AM EDT Temperature 35.7 C (96.2 F) 12/09/2020 10:08 AM E DT Respiratory Rate 18 12/09/2020 10:08 AM EDT Oxygen Saturation 95% 12/09/2020 10:08 AM EDT Inhaled Oxygen Concentration - - Weight - - Height - - Body Mass Index - - documented in this encounter Progress Notes * Vera Capellan RN - 12/09/2020 10:00 AM EDT [facility] Living Supervisor ROSA #1 Visit Date: 12/09/2020 Time: 9:54 AM Name: Stephanie Camp : 1955 Current Concerns: Pt seen for ROSA #1 Admitted to [facility] 11/24-11/26 s/p fall, syncope, left radial head fx She then transferred to [facility] for further rehab. She discharged home Thursday 12/07. Fall and syncopal episode believed to be medication related Wellbutrin was stopped during hospitalization Nortriptyline dose and also Requip were both decreased as well She reported that she has had multiple falls since started Wellbutrin a few weeks ago. Has ortho appt tomorrow - states she will find out then if she needs surgery Has left arm in sling at all times Only c/o this am is fatigue Meds reviewed [facility] pt - she was not aware that nortriptyline and ropinorole were both decreased when in hospital - she will adjust meds accordingly BSG this am was 212 - has been checking 3-4 x a day Already took am meds and bp is 92/56 sitting and 90/50 standing Denies dizziness or lightheadedness TT to [facility] - hold metoprolol tartrate this evening - will have LES recheck tomorrow am Physical Exam: BP 90/50 (BP Position: Standing) | Pulse 86 | Temp 35.7 C (96.2 F) | Resp 18 | LMP 03/11/2003 |SpO2 95% Pain 4 Physical Exam Constitutional: Appearance: She is obese. HENT: Nose: Nose normal. Mouth/Throat: Mouth: Mucous [...] gait problem. Skin: Negative. Neurological: Positive for weakness (generalized). Psychiatric/Behavioral: Negative. Medication Reconciliation: (See medication list) Does patient take medications as ordered: Yes Patient Well Being: PHQ2/9: No questionnaires available. No change in living situation. Denies any falls since one prior to hospitalization Depression seems to be under control at this time, per pt. She was able to see her brother during hospitalization and she was happy about that. She does need more assistance in the home with ADL's, cleaning, cleaner, since arm is in sling and she lives alone - will route to . Advanced Care Planning: POLST. Patient's Goals of [...] fatigue or vertigo Educated on home safety: ? Create a [...] Ck bsgs and record tid- followed by [facility] Wear b/l le support hose-on day/off night Zaroxolyn prn for fluid overload-take only as advised Wear LUE sling at all times - ortho f/u tomorrow Pt to have PT/OT - call placed to discharging facility as referral was sent to agency outside [facility] - nurse will notify that referral will need faxed to another agency Hold metoprolol tartrate this pm - LES will check bp tomorrow am before next dose Home Interventions Provided: Home Intervention: Other; Evaluation Consulted PCP/Specialist Reinforced current Plan of Care, including self-management and medication regimen Patient's 'Red Flags': 1. Increased SOB 2. Increased edema 3. Worsening pain Patient Needs to Remember: Call [facility] at with any new or worsening health concerns or problems, red flag symptoms. Referrals Needed: Urban Renewal Manager Follow Up: Patient encouraged to call the intake phone number for all urgent but not emergent issues. Is the [facility] to [facility] within the last 30 days? No, Assess appropriateness for upcoming telehealth visits. Cancel telehealth visits & schedule home visit with care care team assistant(s)as indicated. Provider is in agreement with Plan of Care: Yes Scheduled to follow up with patient in 24 hrs. Vera Capellan RN 12/09/2020 9:54 AM documented in this encounter Plan of Treatment Upcoming Encounters Date Type Specialty Care Team Description 12/10/2020 Home Visit Family Medicine Magaly Morales, [facility] [employer] [address] [place] [address] [phone] 12/11/2020 Home Visit [facility] Claudia Miranda CRNP [address] [place] [address] [phone] 12/17/2020 Home Visit [facility] Rema Real LSW [address] [place] [address] [phone] 01/08/2021 Office Visit Orthopedics Zack Teague, [address] [place] [address] [phone] 01/14/2021 Office Visit Family Medicine Kevin Whiteside DO [address] [place] [address] [phone] 01/14/2021 Office Visit Pharmacy [facility] [address] [place] [address] 02/02/2021 Office Visit Cardiology Rey Woodall MD [address] [place] [address] [phone] 03/18/2021 Office Visit Nephrology Erik Lenz MD [address] [place] [address], [place] [address] [phone] 08/18/2021 Office Visit Pulmonary Celsa Tafoya CRNP [address] [place] [address] [phone] Health Maintenance Due Date Last Done Comments [...] Additional history exists CKD GFR USE SMARTSET 66017 05/17/202111/17, 05/06/2020, 03/13/2020, Additional history exists DIABETES-HGBA1C EVERY 6 MONTHS 05/17/2021 11/17/2020, 01/23/2020, 11/07/2019, Additional history exists BREAST CANCER SCREENING DISCUSSION YEARLY AGES 40-75 10/01/2021 10/01/2020, 07/10/2019, 06/23/2018, Additional history exists CKD HGB USE SMARTSET 56891 11/17/202111/17, 11/17/2020, 05/06/2020, Additional history exists CKD PHOS USE SMARTSET 66886 11/17/202110/28, 12/24/2019, 11/07/2019, Additional history exists *DEPRESSION [...] Documents on File Type Date Recorded Patient Coin Purse Framer Expl 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
--- OUTSIDE RECORDS SUMMARY | 2023-06-01 05:11 | External Medical Summary | Summary of Care ---
Author Name Unknown Organization [place] [address] Care Team Providers Care Supervisor Sanding Name Role Phone Whiteside Kevin Gonzalez DO Primary Care Provider Reason for Visit * Reason Onset Date Comments Advice 11/27/2020 Encounter Details Date Type Department Care Team Description 11/27/2020 Telephone Pharmacy, [facility] [place] [address] [facility] [address] [facility] [place] [address] Advice Allergies Active Allergy Reactions Severity Noted Date Comments Codeine 07/08/2014 hallucination Pollen 05/18/2019 Heparin 09/04/2009 Heparin Induced Thrombocytopenia Hydrocodone Neuro complications (Please comment) 07/28/2020 Empagliflozin Other (Please comment) Medium 05/17/2018 3 yeast infections in 6 weeks after starting Morphine And Related 09/16/1997 Hallucinations Tetanus Toxoid Other (Please comment) 06/15/2011 Passed out documented as of this encounter (statuses as of 11/27/2020) Medications Medication Sig Dispensed Refills Start Date [...] per week 30 Tab 3 02/26/2020 Active rOPINIRole (REQUIP) 2 MG TabletIndications:Res tless legs syndrome Take 1 Tab by mouth at bedtime. 90 Tab 3 03/13/2020 Active metoprolol tartrate (LOPRESSOR) 25 MG TabletIndications:HTN , goal below 130/80,Acute diastolic congestive heart failure (HCC),Body mass index (BMI) of 50.0 to 59.9 in adult (HCC),Hypoxemia,ELISSA (obstructive sleep apnea),HTN, goal below 140/80 Take 0.5 Tabs by mouth 2 times a day. 90 Tab 3 03/13/2020 Active DIURETIC TITRATION PLANIndications:Chron ic diastolic congestive [...] current use of insulin ([facility]) inject 1.5mg (one pen) under the skin once weekly 6 mL 1 05/27/2020 Active furosemide (LASIX) 40 MG TabletIndications:Chr onic diastolic congestive heart failure ([facility]) Take 2 Tabs by mouth daily. 180 Tab 3 05/28/2020 Active Additional Information Patient taking differently: 40 mg Oral BID, Reported on 06/13/2020 colchicine 0.6 MG TabletIndications:Jacobo kocytoclastic vasculitis ([facility]) Take 1/2 tab daily 45 Tab 1 06/03/2020 Active clobetasol propionate (TEMOVATE) 0.05 % creamIndications:Lich en planus Apply to rash on the hands and dorsal feet twice daily x 1 week, then as needed for flares. 30 g 1 06/03/2020 Active Tresiba FlexTouch 100 UNIT/ML Subcutaneous Solution Pen-injector (Insulin Degludec) Inject 50 Units under the skin daily. 45 mL 3 06/25/2020 Active BD Pen Needle Short U/F 31G X 8 MM (Insulin Pen Needle) Use 5 times daily with insulin 200 Each 11 06/27/2020 Active NovoLOG FlexPen 100 UNIT/ML Subcutaneous Solution Pen-injector (insulin aspart)Indications:Ty pe 2 diabetes mellitus with hemoglobin A1c goal of 7.0%-8.0% ([facility]) Inject up to 30 units with meals plus sliding scale as directed by diabetes clinic 81 mL 3 07/01/2020 Active Magnesium Oxide 400 (241.3 Mg) MG Oral TabletIndications:Hyp omagnesemia Take 400 mg by mouth daily. 90 Tab 0 07/24/2020 Active Vitamin D 25 MCG (1000 UT) Oral Tablet Take 1 Tab by mouth daily. 1 Tab 0 07/24/2020 Active First-Mouthwash BLM Mouth/Throat SuspensionIndications :Pain in mouth Swish and spit 30 mL 4 times a day. 237 mL 1 07/28/2020 Active Cyclobenzaprine HCl 10 MG Oral Tablet [...] Active Levothyroxine Sodium 25 MCG Oral Tablet (LEVOXYL)Indications: Postsurgical hypothyroidism Take 1 tablet every day in the morning (at least 30 min prior to breakfast or other meds) 90 Tab 1 09/20/2020 Active Nortriptyline HCl 50 MG Oral Capsule (PAMELOR)Indications: Fibromyalgia TAKE ONE CAPSULE BY MOUTH AT BEDTIME 90 Cap 1 09/23/2020 Active DULoxetine HCl 30 MG Oral Capsule [...] a day. 270 Cap 0 11/10/2020 Active buPROPion HCl ER (XL) 150 MG Oral Tablet Extended Release 24 Hour (Wellbutrin XL)Indications:Mild episode of recurrent major depressive disorder (HCC) Take 1 Tab by mouth daily. 30 Tab 5 11/10/2020 Active clonazePAM 0.5 MG Oral Tablet (KlonoPIN)Indications :Anxiety state Take 1 Tab by mouth 2 times a day. 60 Tab 0 11/10/2020 Active traMADol HCl 50 MG Oral Tablet (Ultram)Indications:C hronic pain syndrome Take 1 Tab by mouth every 8 hours as needed for Pain, Severe. 90 Tab 0 11/10/2020 Active documented as of this encounter (statuses as of 11/27/2020) Active Problems Problem Noted Date Spinal stenosis [...] as of this encounter (statuses as of 11/27/2020) Resolved Problems Problem Noted Date Resolved Date [...] as of this encounter (statuses as of 11/27/2020) Immunizations Name Administration Dates Next Due Pneumococcal [...] Notes * Telephone Encounter - Al Peace, [facility] - 11/27/2020 12:19 PM EST Faxed requested sliding scaled information as requested Novolog - 30 units with meals +SS 1:25 >150 Novolog Doses 11/27/2020 Blood Sugar levels Breakfast Lunch Dinner 70 to 99 28 28 28 100 to 124 29 29 29 125 to 149 30 30 30 150 to 174 30 30 30 175 to 199 31 31 31 200 to 224 32 32 32 225 to 249 33 33 33 250 to 274 34 34 34 275 to 299 35 35 35 300 to 324 36 36 36 325 to 349 37 37 37 350 to 374 38 38 38 375 to 399 39 39 39 400 to 424 40 40 40 425 to 449 41 41 41 450 to 474 42 42 42 475 to 499 43 43 43 500 to 524 44 44 44 525 to 549 45 45 45 550 to 574 46 46 46 Parameters fixed 30 30 30 shaka 25 over 150 Al Peace, Pharm D Clinical Pharmacist 11/27/2020,12:20 PM * Telephone Encounter - Tasha Busby OSA - 11/27/2020 11:[address] Alvarez -[phone] Would like to know if you can send the sliding scale to her facility. documented in this encounter Plan of Treatment Upcoming Encounters Date Type Specialty Care Team Description 12/01/2020 Office Visit Family Medicine Rema Gibbons PA-C [address] [place] [address] [phone] 12/03/2020 Pharmacy Pharmacy [facility] [address] [place] [address] 12/09/2020 Home Visit [facility] Vera Capellan RN [address] [place] [address] [phone] 12/10/2020 Home Visit [facility] Rema Real LSW [address] [place] [address] [phone] 01/08/2021 Office Visit Orthopedics Zack Teague DO [address] [place] [address] [phone] 01/14/2021 Office Visit Family Medicine Kevin Whiteside DO [address] [place] [address] [phone] 02/02/2021 Office Visit Cardiology Rey Woodall MD [address] [place] [address] 03/18/2021 Office Visit Nephrology Erik Lenz MD [address] [facility], [place] [address] 08/18/2021 Office Visit Pulmonary Celsa Tafoya CRNP [...] Additional history exists CKD GFR USE SMARTSET 68063 05/17/202111/17, 05/06/2020, 03/13/2020, Additional history exists DIABETES-HGBA1C EVERY 6 MONTHS 05/17/2021 11/17/2020, 01/23/2020, 11/07/2019, Additional history exists BREAST CANCER SCREENING DISCUSSION YEARLY AGES 40-75 10/01/2021 10/01/2020, 07/10/2019, 06/23/2018, Additional history exists CKD HGB USE SMARTSET 60206 11/17/202111/17, 11/17/2020, 05/06/2020, Additional history exists CKD PHOS USE SMARTSET 83578 11/17/202110/28, 12/24/2019, 11/07/2019, Additional history exists *DEPRESSION [...] Documents on File Type Date Recorded Patient Warp Spinner Expl 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
--- OUTSIDE RECORDS SUMMARY | 2023-06-01 05:11 | External Medical Summary | Summary of Care ---
Author Name Unknown Organization [facility] [place] [address] Care Team Providers Care Manga Artist Name Role Phone Kevin Whiteside DO Primary Care Provider Reason for Visit * Reason Onset Date Comments [facility]: Maintenance 11/28/2020 Encounter Details Date Type Department Care Team Description 11/28/2020 Telephone [facility], [facility] [address] [facility] [place] [address] [facility], Nurse [facility] [address] [facility] [place] [address] [phone] [facility]: Maintenance Allergies Active Allergy Reactions Severity Noted Date Comments Codeine 07/08/2014 hallucination Pollen 05/18/2019 Heparin 09/04/2009 Heparin Induced Thrombocytopenia Hydrocodone Neuro complications (Please comment) 07/28/2020 Empagliflozin Other (Please comment) Medium 05/17/2018 3 yeast infections in 6 weeks after starting Morphine And Related 09/16/1997 Hallucinations Tetanus Toxoid Other (Please comment) 06/15/2011 Passed out documented as of this encounter (statuses as of 11/28/2020) Medications Medication Sig Dispensed Refills Start Date [...] 0 05/08/2020 Active Blood Glucose Monitoring Suppl (AdHackTOUCH ULTRA 2) w/Device KIT Use to test BG values 1 Kit 0 05/20/2020 Active Glucose Blood (ONETOUCH ULTRA BLUE) STRP Check sugars 3-4 times daily, E11.9 400 Strip 3 05/22/2020 Active TRULICITY 1.5 MG/0.5ML SOPNIndications:DM type 2 nursing care encounter ([facility]),Uncontrolled type 2 diabetes mellitus with stage 3 chronic kidney disease, with long-term current use of insulin ([facility]) inject 1.5mg (one pen) under the skin once weekly 6 mL 1 05/27/2020 Active furosemide (LASIX) 40 MG TabletIndications:Chr onic diastolic congestive heart failure ([facility]) Take 2 Tabs by mouth daily. 180 Tab 3 05/28/2020 Active Additional Information Patient taking differently: 40 mg Oral BID, Reported on 06/13/2020 colchicine 0.6 MG TabletIndications:Jacobo kocytoclastic vasculitis ([facility]) Take 1/2 tab daily 45 [...] goal of 7.0%-8.0% ([facility]) Inject up to 30 units [...] as of this encounter (statuses as of 11/28/2020) Active Problems Problem Noted Date Spinal stenosis [...] 10/14/2014 Overview: ICD-10 update of inactive term [place] filter in place 08/19/2014 History of pulmonary embolus (PE) 2013 Statin intolerance 07/16/2014 HTN, goal below 130/80 02/22/2014 Venous insufficiency 02/07/2013 ELISSA (obstructive sleep apnea) 09/16/2011 Overview: CPAP 11 cwp Mild, AHI 11.3 but with significant nocturnal hypoxemia Dicks Postsurgical hypothyroidism 06/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 documented as of this encounter (statuses as of 11/28/2020) Resolved Problems Problem Noted Date Resolved Date [...] as of this encounter (statuses as of 11/28/2020) Immunizations Name Administration Dates Next Due Pneumococcal [...] Telephone Encounter - Lisandra Thomas LPN - 11/28/2020 10:54 AM EST Stephanie discharged from [facility] to [facility]. Added to SNF list to continue to follow. documented in this encounter Plan of Treatment Upcoming Encounters Date Type Specialty Care Team Description 12/01/2020 Office Visit Family Medicine Rema Gibbons PA-C [address] [place] [address] [phone] 12/03/2020 Pharmacy Pharmacy [facility] [address] [place] [address] 12/09/2020 Home Visit [facility] Vera Capellan, RN [address] [place] [address] [phone] 12/10/2020 Home Visit [facility] Rema Real LSW [address] [place] [address] [phone] 01/08/2021 Office Visit Orthopedics Zack Teague, [address] [place] [address] [phone] 01/14/2021 Office Visit Family Medicine Kevin Whiteside, [address] [place] [address] [phone] 02/02/2021 Office Visit Cardiology Rey Woodall MD [address] [place] [address] [phone] 03/18/2021 Office Visit Nephrology Erik Lenz MD [address] [place] [address] [phone] 08/18/2021 Office Visit Pulmonary Celsa Tafoya CRNP [address] [place] [address] [phone] Health Maintenance Due Date Last Done Comments [...] Additional history exists CKD GFR USE SMARTSET 59764 05/17/202111/17, 05/06/2020, 03/13/2020, Additional history exists DIABETES-HGBA1C EVERY 6 MONTHS 05/17/2021 11/17/2020, 01/23/2020, 11/07/2019, Additional history exists BREAST CANCER SCREENING DISCUSSION YEARLY AGES 40-75 10/01/2021 10/01/2020, 07/10/2019, 06/23/2018, Additional history exists CKD HGB USE SMARTSET 19855 11/17/202111/17, 11/17/2020, 05/06/2020, Additional history exists CKD PHOS USE SMARTSET 36880 11/17/202110/28, 12/24/2019, 11/07/2019, Additional history exists *DEPRESSION [...] on File Type Date Recorded Patient Supervisor Laundry Expl 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
--- OUTSIDE RECORDS SUMMARY | 2023-06-01 05:11 | External Medical Summary | Summary of Care ---
Author Name Unknown Organization [place] [address] Care Team Providers Care English Lecturer Name Role Phone Kevin Whiteside Primary Care Provider Encounter Details Date Type Department Care Team Description 11/26/2020 Scan Encounter Unspecified Department <No scans attached> [...] MG TabletIndications:Chr onic diastolic congestive heart failure (HCC) Take 2 Tabs by mouth daily. 180 Tab 3 05/28/2020 Active Additional Information Patient taking differently: 40 mg Oral BID, Reported on 06/13/2020 colchicine 0.6 MG TabletIndications:Jacobo kocytoclastic vasculitis (HCC) Take 1/2 tab [...] 10/14/2014 Overview: ICD-10 update of inactive term [place] filter in place 08/19/2014 History of pulmonary [...] 76%, time <89% 6:21 hours, TINY 47 [facility] Nontoxic uninodular goiter 06/16/201108/17 Body mass index [...] Medicine Rema Gibbons PA-C [address] [address] [phone] 12/03/2020 Pharmacy Pharmacy [facility] Jeramie [address] [address] 12/09/2020 Home Visit [facility] Vera Capellan, RN [address] [address] [phone] 12/10/2020 Home Visit [facility] Rema Real LSW [address] [place] [address] [phone] 01/08/2021 Office Visit Orthopedics Zack Teague, DO 132 [facility] [place] [address] [phone] 01/14/2021 Office Visit Family Medicine Kevin Whiteside, DO 132 [facility] [place] [address] [phone] 02/02/2021 [facility] [address] [phone] 03/18/2021 Office Visit Nephrology Erik Lenz MD 200 [place] [address] [phone] 08/18/2021 Office Visit Pulmonary Celsa Tafoya CRNP 132 [facility] [place] [address] [phone] Health Maintenance Due Date Last Done Comments [...] Additional history exists CKD GFR USE SMARTSET 49256 05/17/202111/17, 05/06/2020, 03/13/2020, Additional history exists DIABETES-HGBA1C EVERY 6 MONTHS 05/17/2021 11/17/2020, 01/23/2020, 11/07/2019, Additional history exists BREAST CANCER SCREENING DISCUSSION YEARLY AGES 40-75 10/01/2021 10/01/2020, 07/10/2019, 06/23/2018, Additional history exists CKD HGB USE SMARTSET 14448 11/17/202111/17, 11/17/2020, 05/06/2020, Additional history exists CKD PHOS USE SMARTSET 22029 11/17/202110/28, 12/24/2019, 11/07/2019, Additional history exists *DEPRESSION [...] on File Type Date Recorded Patient Installation Drafter Expl 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
--- OUTSIDE RECORDS SUMMARY | 2023-06-01 05:11 | External Medical Summary | Summary of Care ---
Author Name Unknown Organization [facility] Address [facility] [place] [address] Care Team Providers Care Counterintelligence Agent Name Role Phone Kevin Whiteside DO Primary Care Provider Reason for Visit * Reason Onset Date Comments FYI 12/09/2020 Encounter Details Date Type Department Care Team Description 12/09/2020 Telephone Family Practice [facility] [address] [place] [address] Kevin Whiteside DO [address] [place] [address] FYI Allergies Active Allergy Reactions Severity Noted Date [...] 90 Tab 3 03/13/2020 Active DIURETIC TITRATION PLANIndications:Sleeve Fixer zahra diastolic congestive heart failure (HCC) [...] 0.6 MG TabletIndications:Le ukocytoclastic vasculitis ([facility]) Take [...] of 7.0%-8.0% ([facility]) Take 1 Cap by mouth 3 [...] encounter Miscellaneous Notes * Telephone Encounter - Alvina Camargo LPN - 12/09/2020 1:41 PM EDT Noted. * Telephone Encounter - Clementine Chappell OSA - 12/09/2020 1:06 PM EDT FYI Kammi from [facility] calling to let PCP know that pt successfully transferred to home on 12/07/20. She was there for 11 days, and did very well. For any further info, please call [phone] documented in this encounter Plan of Treatment Upcoming Encounters Date Type Specialty Care Team Description 12/10/2020 Home Visit Family Medicine Magaly Morales, Community [facility] Customer Service Professional [address] [place] [address] [phone] 12/11/2020 Home Visit [facility] Claudia Miranda CRNP [address] [place] [address] [phone] 12/17/2020 Home Visit [facility] Rema Real LSW [address] [place] [address] [phone] 01/08/2021 Office Visit Orthopedics Zack Teague, [address] [place] [address] [phone] 01/14/2021 Office Visit Family Medicine Kevin Whiteside, [address] [place] [address] [phone] 01/14/[address] [facility] Jeramie [address] [place] [address] 02/02/2021 Office Visit Cardiology Rey Woodall MD [address] [place] [address] [phone] 03/18/2021 Office Visit Nephrology Erik Lenz MD 200 [place] [address] [phone] 08/18/2021 Office Visit Pulmonary Celsa Tafoya CRNP [address] [place] [address] [phone] Health Maintenance Due Date Last Done Comments [...] Additional history exists CKD GFR USE SMARTSET 90640 05/17/202111/17, 05/06/2020, 03/13/2020, Additional history exists DIABETES-HGBA1C EVERY 6 MONTHS 05/17/2021 11/17/2020, 01/23/2020, 11/07/2019, Additional history exists BREAST CANCER SCREENING DISCUSSION YEARLY AGES 40-75 10/01/2021 10/01/2020, 07/10/2019, 06/23/2018, Additional history exists CKD HGB USE SMARTSET 18702 11/17/202111/17, 11/17/2020, 05/06/2020, Additional history exists CKD PHOS USE SMARTSET 91498 11/17/202110/28, 12/24/2019, 11/07/2019, Additional history exists *DEPRESSION [...] on File Type Date Recorded Patient Clinical Engineering Director Expl 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
--- OUTSIDE RECORDS SUMMARY | 2023-06-01 05:11 | External Medical Summary | Summary of Care ---
Author Name Unknown Organization [facility] Address [place] [address] Care Team Providers Care Senior Administrative Services Officer Name Role Phone Kevin Whiteside DO Primary Care Provider Reason for Visit * Reason Onset Date Comments [facility]: Maintenance 12/08/2020 Encounter Details Date Type Department Care Team Description 12/08/2020 Telephone [facility], [facility] [address] [facility] [place] [address] [facility], Nurse [facility] [address] [facility] [place] [address] [phone] [facility]: Maintenance Allergies Active Allergy Reactions Severity Noted Date Comments Codeine 07/08/2014 hallucination Pollen 05/18/2019 Heparin 09/04/2009 Heparin Induced Thrombocytopenia Hydrocodone Neuro complications (Please comment) 07/28/2020 Empagliflozin Other (Please comment) Medium 05/17/2018 3 yeast infections in 6 weeks after starting Morphine And Related 09/16/1997 Hallucinations Tetanus Toxoid Other (Please comment) 06/15/2011 Passed out documented as of this encounter (statuses as of 12/08/2020) Medications Medication Sig Dispensed Refills Start Date [...] 0 05/08/2020 Active Blood Glucose Monitoring Suppl (WikiswayTOUCH ULTRA 2) w/Device KIT Use to test [...] MG TabletIndications:Chr onic diastolic congestive heart failure ([facility]) Take 2 Tabs by mouth daily. 180 Tab 3 05/28/2020 Active Additional Information Patient taking differently: 40 mg Oral BID, Reported on 06/13/2020 colchicine 0.6 MG TabletIndications:Jacobo kocytoclastic vasculitis ([facility]) Take 1/2 tab [...] as of this encounter (statuses as of 12/08/2020) Active Problems Problem Noted Date Spinal stenosis [...] 10/14/2014 Overview: ICD-10 update of inactive term [place] filter in place 08/19/2014 History of pulmonary embolus (PE) 2013 Statin intolerance 07/16/2014 HTN, goal below 130/80 02/22/2014 Venous insufficiency 02/07/2013 ELISSA (obstructive sleep apnea) 09/16/2011 Overview: CPAP 11 cwp Mild, AHI 11.3 but with significant nocturnal hypoxemia Dicks Postsurgical hypothyroidism 06/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 documented as of this encounter (statuses as of 12/08/2020) Resolved Problems Problem Noted Date Resolved Date [...] as of this encounter (statuses as of 12/08/2020) Immunizations Name Administration Dates Next Due Pneumococcal [...] Miscellaneous Notes * Telephone Encounter - Tasha Chen RN - 12/08/2020 11:13 AM EDT Pt called to reschedule visit fro 12/10/20 with Beverley BHANDARI to 12/11/20, appt changed and routing Rob BHANDARI to verify appt change okay, pt informed if needs to be rescheduled someone willcall her back. Thank you. documented in this encounter Plan of Treatment Upcoming Encounters Date Type Specialty Care Team Description 12/09/2020 Home Visit [facility] Vera Capellan RN [address] [place] [address] [phone] 12/11/2020 [facility] Visit [facility] Rema Real LSW [address] [place] [address] [phone] 01/08/2021 Office Visit Orthopedics Zack Teague, [address] [place] [address] [phone] 01/14/2021 Office Visit Family Medicine Kevin Whiteside, [address] [place] [address] [phone] 01/14/2021 Office Visit Pharmacy [facility] Jeramie [address] [place] [address] 02/02/2021 Office Visit Cardiology Rey Woodall MD [address] [place] [address] [phone] 03/18/2021 Office Visit Nephrology Erik Lenz MD [address] [place] [address], [place] [address] [phone] 08/18/2021 Office Visit Pulmonary Celsa Tafoya CRNP [address] [place] [address] [phone] Health Maintenance Due Date Last Done Comments [...] Additional history exists CKD GFR USE SMARTSET 69039 05/17/202111/17, 05/06/2020, 03/13/2020, Additional history exists DIABETES-HGBA1C EVERY 6 MONTHS 05/17/2021 11/17/2020, 01/23/2020, 11/07/2019, Additional history exists BREAST CANCER SCREENING DISCUSSION YEARLY AGES 40-75 10/01/2021 10/01/2020, 07/10/2019, 06/23/2018, Additional history exists CKD HGB USE SMARTSET 53733 11/17/202111/17, 11/17/2020, 05/06/2020, Additional history exists CKD PHOS USE SMARTSET 36341 11/17/202110/28, 12/24/2019, 11/07/2019, Additional history exists *DEPRESSION [...] Documents on File Type Date Recorded Patient Fulling Mill Operator Expl anation Advanced Directive 08/22/2009 [...]
--- OUTSIDE RECORDS SUMMARY | 2023-06-01 05:11 | External Medical Summary | Summary of Care ---
Author Name Unknown Organization [place] [address] Care Team Providers Care Grape Crusher Name Role Phone Kevin Whiteside Primary Care Provider Encounter Details Date Type Department Care Team Description 11/25/2020 Scan Encounter Unspecified Department <No scans attached> [...] 76%, time <89% 6:21 hours, TINY 47 [facility] Nontoxic uninodular goiter 06/16/201108/17 Body [...] Medicine Rema Gibbons PA-C [address] [address] [phone] 12/03/2020 Pharmacy Pharmacy [facility] Jeramie [address] [address] 12/09/2020 Home Visit [facility] Vera Capellan, RN [address] [address] [phone] 12/10/2020 Home Visit [facility] Rema Real LSW [address] [place] [address] [phone] 01/08/2021 Office Visit Orthopedics Zack Teague, DO 132 [facility] [place] [address] [phone] 01/14/2021 Office Visit Family Medicine Kevin Whiteside, DO 132 [facility] [place] [address] [phone] 02/02/2021 Office Visit [facility]iology [facility] [address] [phone] 03/18/2021 Office Visit Nephrology Erik Lenz MD 200 [place] [address] [phone] 08/18/2021 Office Visit Pulmonary Celsa Tafoya CRNP 132 [facility] [place] [address] [phone] Health Maintenance Due Date Last Done Comments [...] Additional history exists CKD GFR USE SMARTSET 06986 05/17/202111/17, 05/06/2020, 03/13/2020, Additional history exists DIABETES-HGBA1C EVERY 6 MONTHS 05/17/2021 11/17/2020, 01/23/2020, 11/07/2019, Additional history exists BREAST CANCER SCREENING DISCUSSION YEARLY AGES 40-75 10/01/2021 10/01/2020, 07/10/2019, 06/23/2018, Additional history exists CKD HGB USE SMARTSET 73731 11/17/202111/17, 11/17/2020, 05/06/2020, Additional history exists CKD PHOS USE SMARTSET 99607 11/17/202110/28, 12/24/2019, 11/07/2019, Additional history exists *DEPRESSION [...] Documents on File Type Date Recorded Patient Welt Rander Expl 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
--- OUTSIDE RECORDS SUMMARY | 2023-06-01 05:11 | External Medical Summary | Summary of Care ---
Author Name Unknown Organization [place] [address] Care Team Providers Care Linux Unix Engineer Name Role Phone Kevin Whiteside DO Primary Care Provider Reason for Visit * Reason Comments Appointment Encounter Details Date Type Department Care Team Description 12/03/2020 Pharmacy Pharmacy, [facility] [address] [employer] [facility] [employer] [place] [address] [facility] 132 [facility] [place] [address] Uncontrolled type 2 diabetes mellitus with stage 3 chronic kidney disease, with long-term current use of insulin ([facility])*; Type 2 diabetes mellitus with hemoglobin A1c goal of 7.0%-8.0% ([facility]) Allergies Active Allergy Reactions Severity Noted Date Comments Codeine 07/08/2014 hallucination Pollen 05/18/2019 Heparin 09/04/2009 Heparin Induced Thrombocytopenia Hydrocodone Neuro complications (Please comment) 07/28/2020 Empagliflozin Other (Please comment) Medium 05/17/2018 3 yeast infections in 6 weeks after starting Morphine And Related 09/16/1997 Hallucinations Tetanus Toxoid Other (Please comment) 06/15/2011 Passed out documented as of this encounter (statuses as of 12/03/2020) Medications Medication Sig Dispensed Refills Start Date [...] 0 05/08/2020 Active Blood Glucose Monitoring Suppl (Store-Locator.comTOUCH ULTRA 2) w/Device KIT Use to test BG values 1 Kit 0 05/20/2020 Active Glucose Blood (ONETOUCH ULTRA BLUE) STRP Check sugars 3-4 times daily, E11.9 400 Strip 3 05/22/2020 Active TRULICITY 1.5 MG/0.5ML SOPNIndications:DM type 2 nursing care encounter ([facility]),Uncontrolled type 2 diabetes mellitus with stage 3 chronic kidney disease, with long-term current use of insulin ([facility]) inject 1.5mg (one pen) under the skin once weekly 6 mL 1 05/27/2020 Active furosemide (LASIX) 40 MG TabletIndications:Chr onic diastolic congestive heart failure ([facility]) Take 2 Tabs by mouth daily. 180 Tab 3 05/28/2020 Active Additional Information Patient taking differently: 40 mg Oral BID, Reported on 06/13/2020 colchicine 0.6 MG TabletIndications:Jacobo kocytoclastic vasculitis ([facility]) Take 1/2 tab daily 45 Tab [...] as of this encounter (statuses as of 12/03/2020) Active Problems Problem Noted Date Spinal stenosis [...] Overview: ICD-10 update of inactive term [place] filter in place 08/19/2014 History of pulmonary embolus (PE) 2013 Statin intolerance 07/16/2014 HTN, goal below 130/80 02/22/2014 Venous insufficiency 02/07/2013 ELISSA (obstructive sleep apnea) 09/16/2011 Overview: CPAP 11 cwp Mild, AHI 11.3 but with significant nocturnal hypoxemia Dicks Postsurgical hypothyroidism 06/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 documented as of this encounter (statuses as of 12/03/2020) Resolved Problems Problem Noted Date Resolved Date [...] as of this encounter (statuses as of 12/03/2020) Immunizations Name Administration Dates Next Due Pneumococcal [...] Progress Notes * Caroline Bruno OSA - 12/03/2020 9:46 AM EST Patient Phone Numbers Spoke with patient to schedule MTDM appointment for diabetes managment. Appointment scheduled as noted below. Next Office Visit: 01/14/2021 Scheduled Provider(s): [facility] Jer[place]ie Ordaz ELISSA Gage 12/03/2020, 9:47 AM documented in this encounter Plan of Treatment Upcoming Encounters Date Type Specialty Care Team Description 12/09/2020 Home Visit [facility] Vera Capellan RN [address] [place] [address] [phone] 12/10/2020 Home Visit [facility] Rema Real LSW [address] [place] [address] [phone] 01/08/2021 Office Visit Orthopedics Zack Teague, [address] [place] [address] [phone] 01/14/2021 Office Visit Family Medicine Kevin Whiteside, [address] [place] [address] [phone] 01/14/2021 Office Visit Pharmacy [facility] [address] [place] [address] 02/02/2021 Office Visit Cardiology Rey Woodall MD [address] [place] [address] [phone] 03/18/2021 Office Visit Nephrology Erik Lenz MD 200 [facility] [place] [address] [phone] 08/18/2021 Office Visit Pulmonary Celsa Tafoya CRNP [address] [place] [address] [phone] Health Maintenance Due Date Last Done Comments [...] Additional history exists CKD GFR USE SMARTSET 71964 05/17/202111/17, 05/06/2020, 03/13/2020, Additional history exists DIABETES-HGBA1C EVERY 6 MONTHS 05/17/2021 11/17/2020, 01/23/2020, 11/07/2019, Additional history exists BREAST CANCER SCREENING DISCUSSION YEARLY AGES 40-75 10/01/2021 10/01/2020, 07/10/2019, 06/23/2018, Additional history exists CKD HGB USE SMARTSET 95623 11/17/202111/17, 11/17/2020, 05/06/2020, Additional history exists CKD PHOS USE SMARTSET 82796 11/17/202110/28, 12/24/2019, 11/07/2019, Additional history exists *DEPRESSION [...] Documents on File Type Date Recorded Patient Hasher Machine Operator Expl anation Advanced Directive 08/22/2009 [...]
--- OUTSIDE RECORDS SUMMARY | 2023-06-01 05:11 | External Medical Summary | Summary of Care ---
Author Name Unknown Organization [place] [address] Care Team Providers Care Supply Chain Systems Manager Name Role Phone Kevin Whiteside Primary Care Provider Encounter Details Date Type Department Care Team Description 11/24/2020 Scan Encounter Unspecified Department <No scans attached> [...] use of insulin ([facility]) inject 1.5mg (one pen) under the [...] of 7.0%-8.0% ([facility]) Inject up to 30 units with [...] 76%, time <89% 6:21 hours, TINY 47 [facility] Nontoxic uninodular goiter 06/16/201108/17 Body mass [...] Medicine Rema Gibbons PA-C [address] [address] [phone] 12/03/2020 Pharmacy Pharmacy [facility] Jeramie [address] [address] [address] 12/09/2020 Home Visit [facility] Vera Capellan, RN [address] [address] [phone] 12/10/2020 Home Visit [facility] Rema Real LSW [address] [place] [address] [phone] 01/08/2021 Office Visit Orthopedics Zack Teague, DO 132 [facility] [place] [address] [phone] 01/14/2021 Office Visit Family Medicine Kevin Whiteside, DO 132 [facility] [place] [address] [phone] 02/02/2021 Office Visit [facility] [address] [phone] 03/18/2021 Office Visit Nephrology Erik Lenz MD 200 [place] [address] [phone] 08/18/2021 Office Visit Pulmonary Celsa Tafoya CRNP 132 [facility] [place] [address] [phone] Health Maintenance Due Date Last Done Comments [...] Additional history exists CKD GFR USE SMARTSET 08668 05/17/202111/17, 05/06/2020, 03/13/2020, Additional history exists DIABETES-HGBA1C EVERY 6 MONTHS 05/17/2021 11/17/2020, 01/23/2020, 11/07/2019, Additional history exists BREAST CANCER SCREENING DISCUSSION YEARLY AGES 40-75 10/01/2021 10/01/2020, 07/10/2019, 06/23/2018, Additional history exists CKD HGB USE SMARTSET 44610 11/17/202111/17, 11/17/2020, 05/06/2020, Additional history exists CKD PHOS USE SMARTSET 43022 11/17/202110/28, 12/24/2019, 11/07/2019, Additional history exists *DEPRESSION [...] Documents on File Type Date Recorded Patient Laborer Shaft Sinking Expl 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
--- OUTSIDE RECORDS SUMMARY | 2023-06-01 05:11 | External Medical Summary | Summary of Care ---
Author Name Unknown Organization [place] [address] Care Team Providers Care Cryptologist Name Role Phone Migue Whiteside DO Primary Care Provider Reason for Visit * Reason Comments eRx-Medication Refill Encounter Details Date Type Department Care Team Description 12/08/2020 Refill Family Practice [facility] [address] [place] [address] Migue Whiteside DO [address] [place] [address] Restless legs syndrome Allergies Active Allergy Reactions [...] 90 Tab 3 0 Active DIURETIC TITRATION PLANIndications:Chr onic [...] SOPNIndications:DM type 2 nursing care encounter ([facility]),Uncontrolled type 2 diabetes mellitus with stage 3 chronic kidney disease, with long-term current use of insulin ([facility]) inject 1.5mg (one pen) under the skin once weekly 6 mL 1 0 Active furosemide (LASIX) 40 MG TabletIndications:C hronic diastolic congestive heart failure ([facility]) Take 2 Tabs by mouth daily. 180 Tab 3 0 Active Additional Information Patient taking differently: 40 mg Oral BID, Reported on 06/13/2020 colchicine 0.6 MG TabletIndications:L eukocytoclastic vasculitis ([facility]) Take 1/2 tab daily 45 Tab [...] of 7.0%-8.0% ([facility]) Inject up to 30 units with [...] goal of 7.0%-8.0% ([facility]) Take 1 Cap by mouth 3 [...] at bedtime. 90 Tab 3 1 Active rOPINIRole (REQUIP) 2 MG TabletIndications:R estless legs syndrome Take 1 Tab by mouth at bedtime. 90 Tab 3 0 12/10/19 21 Discontinued documented as of this encounter [...] Telephone Encounter - Migue Whiteside DO - 12/09/2020 11:49 AM EDT Signed Prescriptions: Disp Refills rOPINIRole HCl 2 MG Oral Tablet (Requip) 90 Tab 3 Sig: Take 1 Tab by mouth at bedtime. Authorizing Provider: MIGUE WHITESIDE * Telephone Encounter - Callum Zuñiga [facility] - 12/09/2020 11:05 AM EDT Pending Prescriptions: Disp Refills rOPINIRole HCl 2 MG Oral Tablet (Requip) 90 Tab 3 Sig: TAKE ONE TABLET BY MOUTH AT BEDTIME * Telephone Encounter - Callum Zuñiga [facility] - 12/09/2020 11:04 AM EDT Refill pharmacists currently not authorized to approve refills for this class of medication per refill protocol. Please approve if appropriate. Thanks, Callum Zuñiga, R.Ph. Clinical Pharmacist [facility] [phone] 12/09/2020,11:04 AM Pending Prescriptions: Disp Refills rOPINIRole HCl 2 MG Oral Tablet (Requip) 90 Tab 3 Sig: TAKE ONE TABLET BY MOUTH AT BEDTIME Last Office/Telemedicine Visit: 11/17/2020 Next Office Visit: 01/14/2021 Scheduled Provider(s): Migue Whiteside DO If no future appointments scheduled, and last appointment is greater than a year ago, please schedule patient for a follow-up appointment Last date the medication was ordered: 03/13/20 Pharmacy: [id number] Is this request for a controlled [...] Labs: Lab Results Component Value Date/Time CREAT 2.0 (H) 11/17/2020 01:00 PM CREAT 2.0 (H) 05/06/2020 08:46 AM POTASSIUM 4.2 11/17/2020 01:00 PM POTASSIUM 4.0 05/06/2020 08:46 AM TSH 5.35 (H) 05/06/2020 08:46 AM [...] Visit Family Medicine Magaly Morales, [facility] Chemical Laboratory Scientist [address] [facility] [address] [phone] 12/11/2020 [facility] [address] [facility] [address] [phone] 12/17/2020 Home Visit [facility] Rema Real LSW [address] [place] [address] [phone] 01/08/2021 Office Visit Orthopedics Zack Teague, DO [address] [place] [address] [phone] 01/14/2021 Office Visit Family Medicine Migue Whiteside, DO [address] [place] [address] [phone] 01/14/2021 Office Visit Pharmacy [facility] [place] [address] [place] [address] 02/02/2021 Office Visit Cardiology Rey Woodall MD [address] [place] [address] [phone] 03/18/2021 Office Visit Nephrology Erik Lenz MD [address] [place] [address] [phone] 08/18/2021 Office Visit Pulmonary Celsa Tafoya CRNP [address] [place] [address] [phone] Health Maintenance Due Date Last Done Comments [...] Additional history exists CKD GFR USE SMARTSET 19031 05/17/202111/17, 05/06/2020, 03/13/2020, Additional history exists DIABETES-HGBA1C EVERY 6 MONTHS 05/17/2021 11/17/2020, 01/23/2020, 11/07/2019, Additional history exists BREAST CANCER SCREENING DISCUSSION YEARLY AGES 40-75 10/01/2021 10/01/2020, 07/10/2019, 06/23/2018, Additional history exists CKD HGB USE SMARTSET 18590 11/17/202111/17, 11/17/2020, 05/06/2020, Additional history exists CKD PHOS USE SMARTSET 11329 11/17/202110/28, 12/24/2019, 11/07/2019, Additional history exists *DEPRESSION [...] Documents on File Type Date Recorded Patient Crab Fisher Expl 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
--- OUTSIDE RECORDS SUMMARY | 2023-06-01 05:11 | External Medical Summary | Summary of Care ---
Author Name Unknown Organization [place] [address] Care Team Providers Care Lubricating Specialist Name Role Phone Kevin Whiteside Primary Care [...] as of this encounter (statuses as of 11/26/2020) Medications Medication Sig Dispensed Refills Start Date [...] disease, with long-term current use of insulin ([facility]) inject 1.5mg (one pen) under the skin [...] of 7.0%-8.0% ([facility]) Inject up to 30 units with meals [...] as of this encounter (statuses as of 11/26/2020) Active Problems Problem Noted Date Spinal stenosis [...] significant nocturnal hypoxemia Dicks Postsurgical hypothyroidism 06/16/2011 ELILE (generalized anxiety disorder) 09/13 Dyslipidemia 09/04/2009 Overview: Per Lipid Taxonomy. documented as of this encounter (statuses as of 11/26/2020) Resolved Problems Problem Noted Date Resolved Date [...] 76%, time <89% 6:21 hours, TINY [facility] Nontoxic uninodular goiter 06/16/201108/17 Body mass [...] as of this encounter (statuses as of 11/26/2020) Immunizations Name Administration Dates Next Due Pneumococcal [...] Medicine Rema Gibbons PA-C [address] [place] [address] [phone] 12/03/2020 Pharmacy Pharmacy [facility] [place] [address] [place] [address] 12/09/2020 [facility] Visit [facility] Vera Capellan, RN [address] [place] [address] [phone] 12/10/2020 [facility] Visit [facility] Rema Real LSW [address] [place] [address] [phone] 01/08/2021 Office Visit Orthopedics Zack Teague, DO 132 [facility] [place] [address] [phone] 01/14/2021 Office Visit Family Medicine Kevin Whiteside, DO [address] [facility] [place] [address] [phone] 02/02/2021 Office Visit Cardiology [facility] [address] [facility] [address] [phone] 03/18/2021 Office Visit Nephrology Erik Lenz MD [address] [place] [address] [phone] 08/18/2021 Office Visit Pulmonary Celsa Tafoya CRNP [address] [facility] [place] [address] [phone] Health Maintenance Due Date Last Done Comments [...] Additional history exists CKD GFR USE SMARTSET 59957 05/17/202111/17, 05/06/2020, 03/13/2020, Additional history exists DIABETES-HGBA1C EVERY 6 MONTHS 05/17/2021 11/17/2020, 01/23/2020, 11/07/2019, Additional history exists BREAST CANCER SCREENING DISCUSSION YEARLY AGES 40-75 10/01/2021 10/01/2020, 07/10/2019, 06/23/2018, Additional history exists CKD HGB USE SMARTSET 38940 11/17/202111/17, 11/17/2020, 05/06/2020, Additional history exists CKD PHOS USE SMARTSET 88597 11/17/202110/28, 12/24/2019, 11/07/2019, Additional history exists *DEPRESSION [...] Documents on File Type Date Recorded Patient Chemistry Technician Expl 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
--- OUTSIDE RECORDS SUMMARY | 2023-06-01 05:12 | External Medical Summary | Summary of Care ---
Author Name Unknown Organization [place] [address] Care Team Providers Care Gis Geographer Name Role Phone Kevin Whiteside DO Primary Care Provider Reason for Visit * Reason Comments [facility]: Acute Encounter Details Date Type Department Care Team Description 11/22/2020 Nurse Only [facility] [address] [facility] [place] [address] [facility], Nurse [facility] [address] [facility] [place] [address] [facility]: Acute Allergies Active Allergy Reactions Severity Noted Date Comments Codeine 07/08/2014 hallucination Pollen 05/18/2019 Heparin 09/04/2009 Heparin Induced Thrombocytopenia Hydrocodone Neuro complications (Please comment) 07/28/2020 Empagliflozin Other (Please comment) Medium 05/17/2018 3 yeast infections in 6 weeks after starting Morphine And Related 09/16/1997 Hallucinations Tetanus Toxoid Other (Please comment) 06/15/2011 Passed out documented as of this encounter (statuses as of 11/22/2020) Medications Medication Sig Dispensed Refills Start Date [...] 3 02/26/2020 Active rOPINIRole (REQUIP) 2 MG TabletIndications:Re stless legs syndrome Take 1 Tab by mouth at bedtime. 90 Tab 3 03/13/2020 Active metoprolol tartrate (LOPRESSOR) 25 MG TabletIndications:HT N, goal below 130/80,Acute diastolic congestive heart failure (HCC),Body mass index (BMI) of 50.0 to 59.9 in adult (HCC),Hypoxemia,ELISSA (obstructive sleep apnea),HTN, goal below 140/80 Take 0.5 Tabs by mouth 2 times a day. 90 Tab 3 03/13/2020 Active DIURETIC TITRATION PLANIndications:Dry Cleaning Attendant zahra diastolic congestive heart failure (HCC) [...] MG/0.5ML SOPNIndications:DM type 2 nursing care encounter ([facility]),Uncontrolled type 2 diabetes mellitus with stage 3 chronic kidney disease, with long-term current use of insulin ([facility]) inject 1.5mg (one pen) under the skin once weekly 6 mL 1 05/27/2020 Active furosemide (LASIX) 40 MG TabletIndications:Ch ronic diastolic congestive heart failure ([facility]) Take 2 Tabs by mouth daily. 180 Tab 3 05/28/2020 Active Additional Information Patient taking differently: 40 mg Oral BID, Reported on 06/13/2020 colchicine 0.6 MG TabletIndications:Le ukocytoclastic vasculitis ([facility]) Take 1/2 tab daily 45 Tab [...] A1c goal of 7.0%-8.0% ([facility]) Inject up to 30 units with meals plus sliding scale as directed by diabetes clinic 81 mL 3 07/01/2020 Active Magnesium Oxide 400 (241.3 Mg) MG Oral TabletIndications:Hy pomagnesemia Take 400 mg by mouth daily. 90 Tab 0 07/24/2020 Active Vitamin D 25 MCG (1000 UT) Oral Tablet Take 1 Tab by mouth daily. 1 Tab 0 07/24/2020 Active First-Mouthwash BLM Mouth/Throat SuspensionIndication s:Pain in mouth Swish and spit 30 mL [...] Pain, Severe. 90 Tab 0 11/10/2020 Active Sulfamethoxazole-Tri methoprim 800-160 MG Oral Tablet (Bactrim DS) Take 1 Tab by mouth 2 times a day for 5 days. Until gone. 10 Tab 0 11/17/2020 11/22/2020 Active documented as of this encounter (statuses as of 11/22/2020) Active Problems Problem Noted Date Spinal stenosis [...] 10/14/2014 Overview: ICD-10 update of inactive term Diagonal filter in place 08/19/2014 History of pulmonary embolus (PE) 2013 Statin intolerance 07/16/2014 HTN, goal below 130/80 02/22/2014 Venous insufficiency 02/07/2013 ELISSA (obstructive sleep apnea) 09/16/2011 Overview: CPAP 11 cwp Mild, AHI 11.3 but with significant nocturnal hypoxemia Dicks Postsurgical hypothyroidism 06/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 documented as of this encounter (statuses as of 11/22/2020) Resolved Problems Problem Noted Date Resolved Date [...] as of this encounter (statuses as of 11/22/2020) Immunizations Name Administration Dates Next Due Pneumococcal [...] Sign Reading Time Taken Comments Blood Pressure 144/78 11/22/2020 1:10 PM EST Pulse 87 11/22/2020 1:10 PM EST Temperature 37.1 C (98.7 F) 11/22/2020 1:10 PM ES T Respiratory Rate 18 11/22/2020 1:10 PM EST Oxygen Saturation 97% 11/22/2020 1:10 PM EST Inhaled Oxygen Concentration - - Weight - - Height - - Body Mass Index - - documented in this encounter Progress Notes * Linda Wilkinson RN - 11/22/2020 1:01 PM EST [facility] Charter CoordinatorChart Picker Visit Date: 11/22/2020 Time: 1:01 PM Name: Stephanie Camp : 1955 Current Concerns: Acute visit made today to assess respiratory status Pt reports that in 2008 she was diagnosed with pneumonia and she "ended up in a coma for months". This makes her worry with current pneumonia diagnosis. Pt had a PCP appt on 11/17/20. She had urine testing and a CXR. The urine was positive and she is being treated with Bactrim. Labs were completed and stable. CXR: IMPRESSION Hazy bilateral opacities may represent multifocal pneumonia versus mild pulmonary edema. Correlate clinically. CT chest can be obtained for complete evaluation as clinically indicated. Pt was called with these results and is to follow-up with Rema Gibbons on 12/01/20. Pt called to [facility] due to feeling worse this morning. Pt was "spring cleaning" in her home and noted getting dizziness and having shortness of breath. She applied her O2 at that time at 2 lpm n/c. At visit, pt reports improvement with oxygen use, sl dizziness continues. No shortness of breath noted at visit, fine rales noted to right base. O2 sat 97% on 2 lpm n/c. Pt is afebrile. Pt has 3 more days of Bactrim. Blood sugars reported to be high 200s Pt took a tramadol prior to visit with reported improvement in chronic pain. Pt instructed to rest this weekend and to not be deep cleaning until infections have resolved. She is to take freq breaks during periods of activity. Home is very cluttered with narrow pathways resulting in increased fall risk. Pt has chronic back and knee pain with a hx of falls from legs giving out. Pt continues to attend outpt therapy. Pt denies any acute concerns and none are noted at visit Pt instructed to call [facility] for any changes Pt to call 911 for any respiratory distress or emergency concerns. Problems/Symptoms: Review of Systems Constitutional: Positive for appetite change (pt reports decreased appetite). Negative for chills and fever. HENT: Positive for congestion (chronic) and postnasal drip. Negative for sore throat and trouble swallowing. Eyes: Negative. Respiratory: Positive for cough (occassional- dry) and shortness of breath (with activity, pt applied oxygen today due to shortness of breath with relief- O2 sat 97% at visit). Negative for wheezing. CPAP with oxygen at hs and O2 prn through the day Cardiovascular: Negative for chest pain. Gastrointestinal: Negative for abdominal pain, diarrhea, nausea and vomiting. Stool softeners/ dulcolax used for regulation Endocrine: Negative for polydipsia, polyphagia and polyuria. Pt reports that readings have been elevated in the 200's Genitourinary: Negative for difficulty urinating, dysuria, frequency and hematuria. Pt is currently being treated for a UTI with Bactrim- she was asymptomatic Musculoskeletal: Positive for back pain and gait problem (unsteady at times). Skin: Negative. Allergic/Immunologic: Negative. Neurological: Positive for dizziness (pt reported some dizziness this am while cleaning) and headaches (intermittent). Negative for weakness. Hematological: Negative. Physical Exam: BP 144/78 (BP Site: Left Arm, BP Position: Sitting, BP Cuff Size: Regular) | Pulse 87 | Temp 37.1 C (98.7 F) (Tympanic) | Resp 18 | LMP 03/11/2003 | SpO2 97% Pain 6- improved with Tramadol use Physical Exam Constitutional: Appearance: She is obese. Comments: Morbid obesity HENT: Head: Normocephalic. Nose: Congestion (chronic) present. Mouth/Throat: Mouth: Mucous membranes are moist. Neck: Musculoskeletal: Normal range of motion. Cardiovascular: Rate and Rhythm: Normal rate and regular rhythm. Pulses: Normal pulses. Pulmonary: Effort: Pulmonary effort is normal. No respiratory distress. Breath sounds: Rales (fine rales to right base) present. No wheezing. Comments: No shortness of breath noted at visit- O2 on at 2 pm n/c Abdominal: General: Bowel sounds are normal. There is no distension. Palpations: Abdomen is soft. Tenderness: There is no abdominal tenderness. Musculoskeletal: General: Swelling (trace to ankles) present. Skin: General: Skin is warm and dry. Neurological: Mental Status: She is alert and oriented to person, place, and time. Mental status is at baseline. Psychiatric: Mood and Affect: Mood normal. Behavior: Behavior normal. Thought Content: Thought content normal. Judgment: Judgment normal. Treatment/Plan: complete full course of Bactrim Continue all medications as ordered Ambulate with [...] prn for fluid overload-take only as advised Out patient PT at [facility] Interventions Provided: Reinforced current Plan of Care, including self-management and medication regimen Patient's 'Red Flags': 1. Shortness of breath unrelieved with rest 2. Uncontrolled pain 3. Fall with any injury Patient Needs to Remember: Explained/reinforced role of patient case manager. Encouraged to call with any issues or concerns. Gave direct phone number and contact information. Referrals Needed: None needed at this time Follow Up: Patient encouraged to call the intake phone number for all urgent but not emergent issues. Scheduled to follow up with patient tomorrow. Linda Wilkinson RN 11/22/2020 1:01 PM documented in this encounter Plan of Treatment Upcoming Encounters Date Type Specialty Care Team Description 11/23/2020 Scheduled Telephone [facility], Nurse [place] [address] [place] [address] [phone] 11/24/2020 Scheduled Telephone [facility] Covering Printer Assistant, [facility] [address] [place] [address] [address] [phone] 12/01/2020 Office Visit Family Medicine Rema Gibbons PA-C [address] [place] [address] [phone] 12/03/2020 Pharmacy Pharmacy [facility] [place] [address] [place] [address] 12/09/2020 Home Visit [facility] Vera Capellan RN [address] [place] [address] [phone] 12/10/2020 Home Visit [facility] Rema Real LSW [address] [place] [address] [phone] 01/08/2021 Office Visit Orthopedics Zack Teague, [address] [place] [address] [phone] 01/14/2021 Office Visit Family Medicine Kevin Whiteside, [address] [place] [address] [phone] 02/02/2021 Office Visit Cardiology Rey Woodall MD [address] [place] [address] [phone] 03/18/2021 Office Visit Nephrology Erik Lenz MD [address] [facility] [place] [address] [phone] 08/18/2021 Office Visit Pulmonary [facility] [place] [address] [phone] Health Maintenance Due Date Last Done Comments [...] Additional history exists CKD GFR USE SMARTSET 21938 05/17/202111/17, 05/06/2020, 03/13/2020, Additional history exists DIABETES-HGBA1C EVERY 6 MONTHS 05/17/2021 11/17/2020, 01/23/2020, 11/07/2019, Additional history exists BREAST CANCER SCREENING DISCUSSION YEARLY AGES 40-75 10/01/2021 10/01/2020, 07/10/2019, 06/23/2018, Additional history exists CKD HGB USE SMARTSET 49930 11/17/202111/17, 11/17/2020, 05/06/2020, Additional history exists CKD PHOS USE SMARTSET 30315 11/17/202110/28, 12/24/2019, 11/07/2019, Additional history exists *DEPRESSION [...] 1 and CKD stage 3 (HCC)- Primary UTI (urinary tract infection) Urinary tract infection, site not specified documented in this encounter Advance Directives Documents on File Type Date Recorded Patient Senior Escrow Officer Expl 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
--- OUTSIDE RECORDS SUMMARY | 2023-06-01 05:12 | External Medical Summary | Summary of Care ---
Author Name Unknown Organization [place] [address] Care Team Providers Care Insurance Job Titles Name Role Phone Kevin Whiteside Primary Care [...] 7.0%-8.0% ([facility]) Inject up to 30 units [...] 76%, time <89% 6:21 hours, TINY [facility] Nontoxic uninodular goiter 06/16/201108/17 Body mass [...] Medicine Rema Gibbons PA-C [address] [address] [address] [phone] 12/03/2020 Pharmacy Pharmacy [facility] [place] [address] [address] 12/09/2020 Home Visit [facility] Vera Capellan, RN [address] [address] [phone] 12/10/2020 Home Visit [facility] Rema Real LSW [address] [place] [address] [phone] 01/08/2021 Office Visit Orthopedics Zack Teague, DO 132 [facility] [place] [address] [phone] 01/14/2021 Office Visit Family Medicine Kevin Whiteside, DO [address] [facility] [place] [address] [phone] 02/02/2021 Office Visit Cardiology [facility]all MD [address] [facility] [address] [phone] 03/18/2021 Office Visit Nephrology Erik Lenz MD [address] [facility] [place] [address] [phone] 08/18/2021 Office Visit Pulmonary Celsa Tafoya CRNP 132 [facility] [place] [address] [phone] Health Maintenance Due Date Last Done Comments [...] Additional history exists CKD GFR USE SMARTSET 30134 05/17/202111/17, 05/06/2020, 03/13/2020, Additional history exists DIABETES-HGBA1C EVERY 6 MONTHS 05/17/2021 11/17/2020, 01/23/2020, 11/07/2019, Additional history exists BREAST CANCER SCREENING DISCUSSION YEARLY AGES 40-75 10/01/2021 10/01/2020, 07/10/2019, 06/23/2018, Additional history exists CKD HGB USE SMARTSET 93953 11/17/202111/17, 11/17/2020, 05/06/2020, Additional history exists CKD PHOS USE SMARTSET 12745 11/17/202110/28, 12/24/2019, 11/07/2019, Additional history exists *DEPRESSION [...] Documents on File Type Date Recorded Patient Mobile Marketing Manager Expl 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
--- OUTSIDE RECORDS SUMMARY | 2023-06-01 05:12 | External Medical Summary | Summary of Care ---
Author Name Unknown Organization [facility] Address [facility] [place] [address] Care Team Providers Care Director Employee Safety And Health Name Role Phone Kevin Whiteside DO Primary Care Provider Reason for Visit * Reason Onset Date Comments Test Results 11/18/2020 Encounter Details Date Type Department Care Team Description 11/18/2020 Telephone Family Practice [facility] [address] [place] [address] Rema Gibbons PA-C [address] [place] [address] Test Results Allergies Active Allergy Reactions Severity Noted Date Comments Codeine 07/08/2014 hallucination Pollen 05/18/2019 Heparin 09/04/2009 Heparin Induced Thrombocytopenia Hydrocodone Neuro complications (Please comment) 07/28/2020 Empagliflozin Other (Please comment) Medium 05/17/2018 3 yeast infections in 6 weeks after starting Morphine And Related 09/16/1997 Hallucinations Tetanus Toxoid Other (Please comment) 06/15/2011 Passed out documented as of this encounter (statuses as of 11/21/2020) Medications Medication Sig Dispensed Refills Start Date [...] 90 Tab 3 03/13/2020 Active DIURETIC TITRATION PLANIndications:Train Braker zahra diastolic congestive heart failure (HCC) If [...] 0 05/08/2020 Active Blood Glucose Monitoring Suppl (BooxmediaTOUCH ULTRA 2) w/Device KIT Use to test BG values 1 Kit 0 05/20/2020 Active Glucose Blood (ONETOUCH ULTRA BLUE) STRP Check sugars 3-4 times daily, E11.9 400 Strip 3 05/22/2020 Active TRULICITY 1.5 MG/0.5ML SOPNIndications:DM type 2 nursing care encounter ([facility]),Uncontrolled type 2 diabetes mellitus with stage 3 chronic kidney disease, with long-term current use of insulin ([facility]) inject 1.5mg (one pen) under the skin once weekly 6 mL 1 05/27/2020 Active furosemide (LASIX) 40 MG TabletIndications:Ch ronic diastolic congestive heart failure ([facility]) Take 2 Tabs by mouth daily. 180 Tab 3 05/28/2020 Active Additional Information Patient taking differently: 40 mg Oral BID, Reported on 06/13/2020 colchicine 0.6 MG TabletIndications:Le ukocytoclastic vasculitis ([facility]) Take 1/2 tab daily 45 [...] as of this encounter (statuses as of 11/21/2020) Active Problems Problem Noted Date Spinal stenosis [...] 10/14/2014 Overview: ICD-10 update of inactive term [place] filter in place 08/19/2014 History of pulmonary embolus (PE) 2013 Statin intolerance 07/16/2014 HTN, goal below 130/80 02/22/2014 Venous insufficiency 02/07/2013 ELISSA (obstructive sleep apnea) 09/16/2011 Overview: CPAP 11 cwp Mild, AHI 11.3 but with significant nocturnal hypoxemia Dicks Postsurgical hypothyroidism 06/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 documented as of this encounter (statuses as of 11/21/2020) Resolved Problems Problem Noted Date Resolved Date [...] as of this encounter (statuses as of 11/21/2020) Immunizations Name Administration Dates Next Due Pneumococcal [...] Telephone Encounter - Ariela Mccrary RN - 11/21/2020 4:53 PM EST Pt returned call and is waiting to see if she can be scheduled with Stevo next week * Telephone Encounter - Migdalia Whiteside OSA - 11/21/2020 8:55 AM EST Will send to Dr Whiteside to see about double booking as he is full the one day he is here * Telephone Encounter - Linda Dexter LPN - 11/21/2020 8:33 AM EST Pt aware of message below and wants to see Dr Whiteside next week is possible for F/U per Linda Gibbons * Telephone Encounter - Hortencia Aguirre LPN - 11/19/2020 2:24 PM EST Left message for pt to return call. * Telephone Encounter - Izabela Crump LPN - 11/18/2020 5:48 PM EST Left message for pt to return call. * Telephone Encounter - Rema Gibbons PA-C - 11/18/2020 4:54 PM EST Please call patient to see how she is feeling Chest x ray shows possible pneumonia versus fluid If feeling worse, recommend Er evaluation Otherwise, follow up with PCP this week for recheck * Telephone Encounter - Elly Scruggs OSA - 11/18/2020 4:46 PM EST Hello- The radiologist discovered an unexpected or indeterminate finding on Stephanie Camp ([id number]) andasks that you review the following report. Study Type:XR CHEST 2 VIEWS Date of Study: 11/17/2020 IMPRESSION Hazy bilateral opacities may represent multifocal pneumonia versus mild pulmonary edema. Correlate clinically. CT chest can be obtained for complete evaluation as clinically indicated. Please respond to this encounter to acknowledge receipt of this message and take responsibility to ensure this report is reviewed. Thank you, Elly Scruggs, ELISSA Client Service Rep [facility] documented in this encounter Plan of Treatment Upcoming Encounters Date Type Specialty Care Team Description 12/01/2020 Office Visit Family Medicine Rema Gibbons PA-C [address] [place] [address] [phone] 12/03/2020 Pharmacy Pharmacy [facility] [address] [place] [address] 12/09/2020 [facility] Vera Capellan, RN [address] [place] [address] [phone] 12/10/2020 [facility] Visit [facility] Rema Real LSW [address] [place] [address] [phone] 01/08/2021 Office Visit Orthopedics Zack Teague, DO [address] [place] [address] [phone] 01/14/2021 Office Visit Family Medicine Kevin Whiteside, [address] [place] [address] [phone] 02/02/2021 Office Visit Cardiology Rey Woodall MD [address] [place] [address] [phone] 03/18/2021 Office Visit Nephrology Erik Lenz MD [address] [place] [address], [place] [address] [phone] 08/18/2021 Office Visit Pulmonary Celsa Tafoya CRNP [address] [place] [address] [phone] Health Maintenance Due Date Last Done Comments [...] Additional history exists CKD GFR USE SMARTSET 46815 05/17/202111/17, 05/06/2020, 03/13/2020, Additional history exists DIABETES-HGBA1C EVERY 6 MONTHS 05/17/2021 11/17/2020, 01/23/2020, 11/07/2019, Additional history exists BREAST CANCER SCREENING DISCUSSION YEARLY AGES 40-75 10/01/2021 10/01/2020, 07/10/2019, 06/23/2018, Additional history exists CKD HGB USE SMARTSET 35011 11/17/202111/17, 11/17/2020, 05/06/2020, Additional history exists CKD PHOS USE SMARTSET 61329 11/17/202110/28, 12/24/2019, 11/07/2019, Additional history exists *DEPRESSION [...] Documents on File Type Date Recorded Patient Philatelic Consultant Expl 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
--- OUTSIDE RECORDS SUMMARY | 2023-06-01 05:12 | External Medical Summary | Summary of Care ---
Author Name Unknown Organization [facility] Address [place] [address] Care Team Providers Care Art Objects Repairer Name Role Phone Kevin Whiteside DO Primary Care Provider Reason for Visit * Reason Onset Date Comments [facility]: Maintenance 11/24/2020 Encounter Details Date Type Department Care Team Description 11/24/2020 Scheduled Telephone [facility], [facility] [address] [place] [address] Coordinator, [facility] [address] [place] [address] [phone] Allergies Active Allergy Reactions Severity Noted Date Comments Codeine 07/08/2014 hallucination Pollen 05/18/2019 Heparin 09/04/2009 Heparin Induced Thrombocytopenia Hydrocodone Neuro complications (Please comment) 07/28/2020 Empagliflozin Other (Please comment) Medium 05/17/2018 3 yeast infections in 6 weeks after starting Morphine And Related 09/16/1997 Hallucinations Tetanus Toxoid Other (Please comment) 06/15/2011 Passed out documented as of this encounter (statuses as of 11/24/2020) Medications Medication Sig Dispensed Refills Start Date [...] MG/0.5ML SOPNIndications:DM type 2 nursing care encounter ([facility]),Uncontrolled type 2 diabetes mellitus with stage 3 chronic kidney disease, with long-term current use of insulin ([facility]) inject 1.5mg (one pen) under the skin once weekly 6 mL 1 05/27/2020 Active furosemide (LASIX) 40 MG TabletIndications:Chr onic diastolic congestive heart failure ([facility]) Take 2 Tabs by mouth daily. 180 Tab 3 05/28/2020 Active Additional Information Patient taking differently: 40 mg Oral BID, Reported on 06/13/2020 colchicine 0.6 MG TabletIndications:Jacobo kocytoclastic vasculitis ([facility]) Take 1/2 tab daily [...] of 7.0%-8.0% ([facility]) Inject up to 30 [...] as of this encounter (statuses as of 11/24/2020) Active Problems Problem Noted Date Spinal stenosis [...] as of this encounter (statuses as of 11/24/2020) Resolved Problems Problem Noted Date Resolved Date [...] as of this encounter (statuses as of 11/24/2020) Immunizations Name Administration Dates Next Due Pneumococcal [...] Telephone Encounter - Lisandra Thomas LPN - 11/24/2020 10:27 AM EST 48 hour follow up call. Left message requesting return call. Provided call back number . documented in this encounter Plan of Treatment Upcoming Encounters Date Type Specialty Care Team Description 12/01/2020 Office Visit Family Medicine Rema Gibbons PA-C [address] [place] [address] [phone] 12/03/2020 Pharmacy Pharmacy [facility] [address] [place] [address] 12/09/2020 [facility] Vera Capellan, RN [address] [place] [address] [phone] 12/10/2020 Home Visit [facility] Rema Real LSW [address] [place] [address] [phone] 01/08/2021 Office Visit Orthopedics Zack Teague, [address] [place] [address] [phone] 01/14/2021 Office Visit Family Medicine Kevin Whiteside, [address] [place] [address] [phone] 02/02/2021 Office Visit Cardiology Rey Woodall MD [address] [place] [address] [phone] 03/18/2021 Office Visit Nephrology Erik Lenz MD [address] [place] [address], [place] [address] [phone] 08/18/2021 Office Visit Pulmonary Celsa Tafoya CRNP [...] Additional history exists CKD GFR USE SMARTSET 98439 05/17/202111/17, 05/06/2020, 03/13/2020, Additional history exists DIABETES-HGBA1C EVERY 6 MONTHS 05/17/2021 11/17/2020, 01/23/2020, 11/07/2019, Additional history exists BREAST CANCER SCREENING DISCUSSION YEARLY AGES 40-75 10/01/2021 10/01/2020, 07/10/2019, 06/23/2018, Additional history exists CKD HGB USE SMARTSET 45146 11/17/202111/17, 11/17/2020, 05/06/2020, Additional history exists CKD PHOS USE SMARTSET 26010 11/17/202110/28, 12/24/2019, 11/07/2019, Additional history exists *DEPRESSION [...] File Type Date Recorded Patient Public Health Policy Analyst Expl 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
--- OUTSIDE RECORDS SUMMARY | 2023-06-01 05:12 | External Medical Summary | Summary of Care ---
Author Name Unknown Organization [place] [address] Care Team Providers Care Software Implementation Project Manager Name Role Phone Kevin Whiteside DO Primary Care Provider Reason for Visit * Reason Onset Date Comments Test Results 11/18/2020 Encounter Details Date Type Department Care Team Description 11/18/2020 Telephone Family Practice [facility] [address] [place] [address] Rema Gibbons PA-C [address] [place] [address] Test Results Allergies Active [...] 90 Tab 3 03/13/2020 Active DIURETIC TITRATION PLANIndications:Account Maintenance 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 zahra diastolic congestive heart failure (HCC) [...] 0 05/08/2020 Active Blood Glucose Monitoring Suppl (Liquid BronzeTOUCH ULTRA 2) w/Device KIT Use to test BG values 1 Kit 0 05/20/2020 Active Glucose Blood (ONETOUCH ULTRA BLUE) STRP Check sugars 3-4 times daily, E11.9 400 Strip 3 05/22/2020 Active TRULICITY 1.5 MG/0.5ML SOPNIndications:DM type 2 nursing care encounter ([facility]),Uncontrolled type 2 diabetes mellitus with stage 3 chronic kidney disease, with long-term current use of insulin ([facility]) inject 1.5mg (one pen) under the skin once weekly 6 mL 1 05/27/2020 Active furosemide (LASIX) 40 MG TabletIndications:Ch ronic diastolic congestive heart failure ([facility]) Take 2 Tabs by mouth daily. 180 Tab 3 05/28/2020 Active Additional Information Patient taking differently: 40 mg Oral BID, Reported on 06/13/2020 colchicine 0.6 MG TabletIndications:Le ukocytoclastic vasculitis ([facility]) Take 1/2 tab daily 45 Tab 1 [...] days. Until gone. 10 Tab 0 11/17/2020 documented as of this encounter (statuses as [...] Telephone Encounter - Kevin Whiteside DO - 11/24/2020 7:20 AM EST Please call and check on patient's clinical status today - then let me know and we can game plan for this week depending on how she is feeling. * Telephone Encounter - Ariela Mccrary RN [...] unexpected or indeterminate finding on Stephanie Camp ([id number]) andasks that you review the following report. Study Type:XR CHEST 2 VIEWS Date of Study: 11/17/2020 IMPRESSION Hazy bilateral opacities may represent multifocal pneumonia versus mild pulmonary edema. Correlate clinically. CT chest can be obtained for complete evaluation as clinically indicated. Please respond to this encounter to acknowledge receipt of this message and take responsibility to ensure this report is reviewed. Thank you, ELISSA Astorga Client Service Rep [facility] documented in this encounter Plan of Treatment Upcoming Encounters Date Type Specialty Care Team Description 11/24/2020 Scheduled Telephone [facility] Compliance Attorney, [facility] [address] [place] [address] [phone] 12/01/2020 Office Visit Family Medicine Rema Gibbons PA-C [address] [place] [address] [phone] 12/03/[address] [facility] [place] [address] [place] [address] 12/09/2020 [facility] Visit [facility] Vera Capellan, RN [address] [place] [address] [phone] 12/10/2020 Home Visit [facility] Rema Real LSW [address] [place] [address] [phone] 01/08/2021 Office Visit Orthopedics Zack Teague, DO [address] [place] [address] [phone] 01/14/2021 Office Visit Family Medicine Kevin Whiteside, DO [address] [place] [address] [phone] 02/02/2021 Office Visit Cardiology Rey Woodall MD [address] [place] [address] [phone] 03/18/2021 Office Visit Nephrology Erik Lenz MD [address] [facility] [place] [address] [phone] 08/18/2021 Office Visit Pulmonary Celsa Tafoya CRNP [...] Additional history exists CKD GFR USE SMARTSET 94543 05/17/202111/17, 05/06/2020, 03/13/2020, Additional history exists DIABETES-HGBA1C EVERY 6 MONTHS 05/17/2021 11/17/2020, 01/23/2020, 11/07/2019, Additional history exists BREAST CANCER SCREENING DISCUSSION YEARLY AGES 40-75 10/01/2021 10/01/2020, 07/10/2019, 06/23/2018, Additional history exists CKD HGB USE SMARTSET 28438 11/17/202111/17, 11/17/2020, 05/06/2020, Additional history exists CKD PHOS USE SMARTSET 42257 11/17/2021 02/10/2020, 12/24/2019, 11/07/2019, Additional history exists *DEPRESSION SCREENING,ANNUAL [...] Documents on File Type Date Recorded Patient Twister Tender Expl 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
--- OUTSIDE RECORDS SUMMARY | 2023-06-01 05:12 | External Medical Summary | Summary of Care ---
Author Name Unknown Organization [facility] Address [facility] [place] [address] Care Team Providers Care Wall Cleaner Name Role Phone Kevin Whiteside DO Primary Care Provider Reason for Visit * Reason Onset Date Comments Test Results 11/18/2020 Encounter Details Date Type Department Care Team Description 11/18/2020 Telephone Family Practice [facility] [address] [place] [address] Rema Gibbons PA-C [address] [place] [address] Test Results Allergies Active [...] 90 Tab 3 03/13/2020 Active DIURETIC TITRATION PLANIndications:Rug Setter Velvet zahra diastolic congestive heart failure (HCC) If [...] 0 05/08/2020 Active Blood Glucose Monitoring Suppl (Inovio PharmaceuticalsTOUCH ULTRA 2) w/Device KIT Use to test BG values 1 Kit 0 05/20/2020 Active Glucose Blood (ONETOUCH ULTRA BLUE) STRP Check sugars 3-4 times daily, E11.9 400 Strip 3 05/22/2020 Active TRULICITY 1.5 MG/0.5ML SOPNIndications:DM type 2 nursing care encounter ([facility]),Uncontrolled type 2 diabetes mellitus with stage 3 chronic kidney disease, with long-term current use of insulin ([facility]) inject 1.5mg (one pen) under the skin once weekly 6 mL 1 05/27/2020 Active furosemide (LASIX) 40 MG TabletIndications:Ch ronic diastolic congestive heart failure ([facility]) Take 2 Tabs by mouth daily. 180 Tab 3 05/28/2020 Active Additional Information Patient taking differently: 40 mg Oral BID, Reported on 06/13/2020 colchicine 0.6 MG TabletIndications:Le ukocytoclastic vasculitis ([facility]) Take 1/2 tab daily 45 Tab 1 [...] goal of 7.0%-8.0% ([facility]) Inject up to 30 units with meals [...] 10/14/2014 Overview: ICD-10 update of inactive term [place] filter in place 08/19/2014 History of pulmonary [...] encounter Miscellaneous Notes * Telephone Encounter - Migdalia Whiteside, ELISSA - 11/21/2020 8:55 AM EST Will send [...] unexpected or indeterminate finding on Stephanie Camp ([id number]) andasks that you review the following report. [...] Thank you, ELISSA Astorga Client Service Rep [facility] documented in this encounter Plan of Treatment Upcoming Encounters Date Type Specialty Care Team Description 12/01/2020 Office Visit [facility] [place] [address] [phone] 12/03/2020 Pharmacy Pharmacy [facility] [place] [address] [place] [address] 12/09/2020 [facility] Vera Capellan, RN [address] [place] [address] [phone] 12/10/2020 Home Visit [facility] Rema Real LSW [address] [place] [address] [phone] 01/08/2021 Office Visit Orthopedics Zack Teague, [address] [place] [address] [phone] 01/14/2021 Office Visit Family Medicine Kevin Whiteside, [address] [place] [address] [phone] 02/02/2021 Office Visit Cardiology Rey Woodall MD [address] [place] [address] [phone] 03/18/2021 Office Visit Nephrology Erik Lenz MD [address] [place] [address], [place] [address] [phone] 08/18/2021 Office Visit Pulmonary Celsa Tafoya CRNP [facility] [place] [address] [phone] Health Maintenance Due Date Last Done Comments [...] Additional history exists CKD GFR USE SMARTSET 82265 05/17/202111/17, 05/06/2020, 03/13/2020, Additional history exists DIABETES-HGBA1C EVERY 6 MONTHS 05/17/2021 11/17/2020, 01/23/2020, 11/07/2019, Additional history exists BREAST CANCER SCREENING DISCUSSION YEARLY AGES 40-75 10/01/2021 10/01/2020, 07/10/2019, 06/23/2018, Additional history exists CKD HGB USE SMARTSET 98828 11/17/202111/17, 11/17/2020, 05/06/2020, Additional history exists CKD PHOS USE SMARTSET 57494 11/17/202110/28, 12/24/2019, 11/07/2019, Additional history exists *DEPRESSION [...] Documents on File Type Date Recorded Patient Jewelsmith Expl 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
--- OUTSIDE RECORDS SUMMARY | 2023-06-01 05:12 | External Medical Summary | Summary of Care ---
Author Name Unknown Organization [facility] [place] [address] Care Team Providers Care Shovel Loader Operator Name Role Phone Kevin Whiteside DO Primary Care Provider Reason for Visit * Reason Onset Date Comments [facility]: Maintenance 11/23/2020 Encounter Details Date Type Department Care Team Description 11/23/2020 Scheduled Telephone [facility], [facility] [address] [facility] [place] [address] [facility], Nurse [facility] [address] [facility] [place] [address] [phone] Allergies Active Allergy Reactions Severity Noted Date Comments Codeine 07/08/2014 hallucination Pollen 05/18/2019 Heparin 09/04/2009 Heparin Induced Thrombocytopenia Hydrocodone Neuro complications (Please comment) 07/28/2020 Empagliflozin Other (Please comment) Medium 05/17/2018 3 yeast infections in 6 weeks after starting Morphine And Related 09/16/1997 Hallucinations Tetanus Toxoid Other (Please comment) 06/15/2011 Passed out documented as of this encounter (statuses as of 11/23/2020) Medications Medication Sig Dispensed Refills Start Date [...] MG TabletIndications:Chr onic diastolic congestive heart failure ([facility]) Take 2 Tabs by mouth daily. 180 Tab 3 05/28/2020 Active Additional Information Patient taking differently: 40 mg Oral BID, Reported on 06/13/2020 colchicine 0.6 MG TabletIndications:Jacobo kocytoclastic vasculitis ([facility]) Take 1/2 tab [...] as of this encounter (statuses as of 11/23/2020) Active Problems Problem Noted Date Spinal stenosis [...] as of this encounter (statuses as of 11/23/2020) Resolved Problems Problem Noted Date Resolved Date [...] as of this encounter (statuses as of 11/23/2020) Immunizations Name Administration Dates Next Due Pneumococcal [...] encounter Miscellaneous Notes * Telephone Encounter - Ciarra Freedman LPN - 11/23/2020 10:39 AM EST 24hr acute visit follow up - respiratory issues Spoke with patient. Reports"feeling a little better today". Slept well thru the night Unable to check SpO2 "don't know where it is" Using O2 @ 2L via n/c Afebrile NB this am 190 1 day of Bactrim left Denies having any questions Encouraged to call with new or worsening symptoms documented in this encounter Plan of Treatment Upcoming Encounters Date Type Specialty Care Team Description 11/24/2020 Scheduled Telephone [facility] Esthetician/Skin Therapist, [place] Cisneros [address] [place] [address] [phone] 12/01/2020 Office Visit Family Medicine Rema Gibbons PA-C [address] [place] [address] [phone] 12/03/2020 Pharmacy Pharmacy [facility] [address] [place] [address] 12/09/2020 [facility] Visit [facility] Vera Capellan RN [address] [place] [address] [phone] 12/10/2020 [facility] Visit [facility] Rema Real LSW [address] [place] [address] [phone] 01/08/2021 Office Visit Orthopedics Zack Teague, [address] [place] [address] [phone] 01/14/2021 Office Visit Family Medicine Kevin Whiteside, [address] [place] [address] [phone] 02/02/2021 Office Visit Cardiology Rey Woodall MD [address] [place] [address] [phone] 03/18/2021 Office Visit Nephrology Erik Lenz MD [address] [place] [address] [phone] 08/18/2021 Office Visit Pulmonary Celsa Tafoya CRNP [address] [place] [address] [phone] Health Maintenance Due Date Last Done Comments [...] Additional history exists CKD GFR USE SMARTSET 75229 05/17/202111/17, 05/06/2020, 03/13/2020, Additional history exists DIABETES-HGBA1C EVERY 6 MONTHS 05/17/2021 11/17/2020, 01/23/2020, 11/07/2019, Additional history exists BREAST CANCER SCREENING DISCUSSION YEARLY AGES 40-75 10/01/2021 10/01/2020, 07/10/2019, 06/23/2018, Additional history exists CKD HGB USE SMARTSET 79364 11/17/202111/17, 11/17/2020, 05/06/2020, Additional history exists CKD PHOS USE SMARTSET 42565 11/17/202110/28, 12/24/2019, 11/07/2019, Additional history exists *DEPRESSION [...] File Type Date Recorded Patient Day Care Home Provider Expl 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
--- OUTSIDE RECORDS SUMMARY | 2023-06-01 05:12 | External Medical Summary | Summary of Care ---
Author Name Unknown Organization [facility] Address [facility] [place] [address] Care Team Providers Care Sports Statistician Name Role Phone Kevin Whiteside DO Primary Care Provider Reason for Visit * Reason Onset Date Comments Test Results 11/18/2020 Encounter Details Date Type Department Care Team Description 11/18/2020 Telephone Family Practice [facility] [address] [place] [address] Rema Gibbons PA-C [address] [place] [address] Test Results Allergies Active [...] 90 Tab 3 03/13/2020 Active DIURETIC TITRATION PLANIndications:Cryptologic Technician Operator/Analyst zahra diastolic congestive heart failure (HCC) If [...] 0 05/08/2020 Active Blood Glucose Monitoring Suppl (EatingWellTOUCH ULTRA 2) w/Device KIT Use to test [...] 10/14/2014 Overview: ICD-10 update of inactive term [place] filter in place 08/19/2014 History of [...] unexpected or indeterminate finding on Stephanie Camp ([id number]) andasks that you review the following report. [...] Elly Scruggs, ELISSA Client Service Rep [facility] documented in this encounter Plan of Treatment Upcoming Encounters Date Type Specialty Care Team Description 12/01/2020 Office Visit Family Medicine Rema Gibbons PA-C [address] [place] [address] [phone] 12/03/2020 Pharmacy Pharmacy [facility] [address] [place] [address] 12/09/2020 [facility] Vera Capellan, RN [address] [place] [address] [phone] 12/10/2020 [facility] Visit [facility] Rema Real LSW [address] [place] [address] [phone] 01/08/2021 Office Visit Orthopedics Zack Teague, DO [address] [place] [address] [phone] 01/14/2021 Office Visit Family Medicine Kevin Whiteside, [address] [place] [address] [phone] 02/02/2021 Office Visit Cardiology Rey Woodall MD [address] [place] [address] [phone] 03/18/2021 Office Visit Nephrology Erik Lenz MD [address] [place] [address], [place] [address] [phone] 08/18/2021 Office Visit Pulmonary Celsa Tafoya CRNP [address] [place] [address] [phone] Health Maintenance Due Date Last Done Comments [...] Additional history exists CKD GFR USE SMARTSET 07683 05/17/202111/17, 05/06/2020, 03/13/2020, Additional history exists DIABETES-HGBA1C EVERY 6 MONTHS 05/17/2021 11/17/2020, 01/23/2020, 11/07/2019, Additional history exists BREAST CANCER SCREENING DISCUSSION YEARLY AGES 40-75 10/01/2021 10/01/2020, 07/10/2019, 06/23/2018, Additional history exists CKD HGB USE SMARTSET 70136 11/17/202111/17, 11/17/2020, 05/06/2020, Additional history exists CKD PHOS USE SMARTSET 54367 11/17/202110/28, 12/24/2019, 11/07/2019, Additional history exists *DEPRESSION [...] Documents on File Type Date Recorded Patient Laundry Operator Expl 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
--- OUTSIDE RECORDS SUMMARY | 2023-06-01 05:12 | External Medical Summary | Summary of Care ---
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 zahra diastolic congestive heart failure (HCC) [...] 0 05/08/2020 Active Blood Glucose Monitoring Suppl (ThreadflipTOUCH ULTRA 2) w/Device KIT Use to test BG values 1 Kit 0 05/20/2020 Active Glucose Blood (ONETOUCH ULTRA BLUE) STRP Check sugars 3-4 times daily, E11.9 400 Strip 3 05/22/2020 Active TRULICITY 1.5 MG/0.5ML SOPNIndications:DM type 2 nursing care encounter ([facility]),Uncontrolled type 2 diabetes mellitus with stage 3 chronic kidney disease, with long-term current use of insulin ([facility]) inject 1.5mg (one pen) under the skin once weekly 6 mL 1 05/27/2020 Active furosemide (LASIX) 40 MG TabletIndications:Ch ronic diastolic congestive heart failure ([facility]) Take 2 Tabs by mouth daily. 180 Tab 3 05/28/2020 Active Additional Information Patient taking differently: 40 mg Oral BID, Reported on 06/13/2020 colchicine 0.6 MG TabletIndications:Le ukocytoclastic vasculitis ([facility]) Take 1/2 tab daily 45 Tab [...] Telephone Encounter - Izabela Crump LPN - 11/24/2020 4:33 PM EST Pt reports she fell this morning and is currently at [facility] with a fractured arm. They are keeping her tonight to try and figure out why she keeps passing out. * Telephone Encounter - Kevin Whiteside DO [...] unexpected or indeterminate finding on Stephanie Camp ([id number]) andasks that you review the following report. [...] Thank you, ELISSA Astorga Client Service Rep [facility] documented in this encounter Plan of Treatment Upcoming Encounters Date Type Specialty Care Team Description 12/01/2020 Office Visit Family Medicine Rema Gibbons PA-C [address] [place] [address] [phone] 12/03/2020 Pharmacy [facility] [address] [place] [address] 12/09/2020 [facility] Visit [facility] Vera Capellan, RN [address] [place] [address] [phone] 12/10/2020 Home Visit [facility] Rema Real LSW [address] [place] [address] [phone] 01/08/2021 Office Visit Orthopedics Zack Teague, [address] [place] [address] [phone] 01/14/2021 Office Visit Family Medicine Kevin Whiteside, [address] [place] [address] [phone] 02/02/2021 Office Visit Cardiology Rey Woodall MD [address] [place] [address] 03/18/2021 Office Visit Nephrology Erik Lenz MD [address] [facility] [place] [address] [phone] 08/18/2021 Office Visit Pulmonary Celsa Tafoya CRNP [...] Additional history exists CKD GFR USE SMARTSET 53768 05/17/202111/17, 05/06/2020, 03/13/2020, Additional history exists DIABETES-HGBA1C EVERY 6 MONTHS 05/17/2021 11/17/2020, 01/23/2020, 11/07/2019, Additional history exists BREAST CANCER SCREENING DISCUSSION YEARLY AGES 40-75 10/01/2021 10/01/2020, 07/10/2019, 06/23/2018, Additional history exists CKD HGB USE SMARTSET 64360 11/17/202111/17, 11/17/2020, 05/06/2020, Additional history exists CKD PHOS USE SMARTSET 70088 11/17/202110/28, 12/24/2019, 11/07/2019, Additional history exists *DEPRESSION [...] Documents on File Type Date Recorded Patient Internet Marketing Coordinator Expl 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
--- OUTSIDE RECORDS SUMMARY | 2023-06-01 05:13 | External Medical Summary | Summary of Care ---
Author Name Unknown Organization [facility] Address [facility] [place] [address] Care Team Providers Care Surgical Services Asst Name Role Phone Kevin Whiteside DO Primary Care Provider Reason for Visit * Reason Onset Date Comments Order Request 11/14/2020 Encounter Details Date Type Department Care Team Description 11/14/2020 Telephone Family Practice [facility] [address] [place] [address] Kevin Whiteside DO [address] [facility] [place] [address] Order Request Allergies Active Allergy Reactions Severity Noted Date Comments Codeine 07/08/2014 hallucination Pollen 05/18/2019 Heparin 09/04/2009 Heparin Induced Thrombocytopenia Hydrocodone Neuro complications (Please comment) 07/28/2020 Empagliflozin Other (Please comment) Medium 05/17/2018 3 yeast infections in 6 weeks after starting Morphine And Related 09/16/1997 Hallucinations Tetanus Toxoid Other (Please comment) 06/15/2011 Passed out documented as of this encounter (statuses as of 11/17/2020) Medications Medication Sig Dispensed Refills Start Date [...] mouth daily. 1 Tab 0 07/24/2020 Active Doxycycline Hyclate 100 MG Oral Capsule Take 100 mg by mouth 2 times a day. 0 07/22/2020 Active First-Mouthwash BLM Mouth/Throat SuspensionIndications :Pain in [...] as of this encounter (statuses as of 11/17/2020) Active Problems Problem Noted Date Spinal stenosis [...] 10/14/2014 Overview: ICD-10 update of inactive term [place] filter in place 08/19/2014 History of pulmonary embolus (PE) 2013 Statin intolerance 07/16/2014 HTN, goal below 130/80 02/22/2014 Venous insufficiency 02/07/2013 ELISSA (obstructive sleep apnea) 09/16/2011 Overview: CPAP 11 cwp Mild, AHI 11.3 but with significant nocturnal hypoxemia Dicks Postsurgical hypothyroidism 06/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 documented as of this encounter (statuses as of 11/17/2020) Resolved Problems Problem Noted Date Resolved Date [...] as of this encounter (statuses as of 11/17/2020) Immunizations Name Administration Dates Next Due Pneumococcal [...] encounter Miscellaneous Notes * Telephone Encounter - Nicole Hinkle CPhT - 11/17/2020 12:13 PM [facility] calling to confirm office fax number.They stated this was sent on the . I advised as of 8:30 this morning nothing was recieved. They will be resending. Thank you, Nicole Hinkle Manager Office [facility] 11/17/2020, 12:14 PM * Telephone Encounter - Rose Barton RPh - 11/17/2020 8:37 AM EST Called [facility], informed them no paperwork received and requested refax to [facility]. Rose Barton, Pharm D Clinical Pharmacist 11/17/2020, 8:37 AM * Telephone Encounter - Isha Basilio OSA - 11/14/2020 11:38 AM EST Angie from [facility] is calling, she faxed over an order on 11-06 for a continuous glucose monitor. She was following up to see if it was received and if it could be faxed back. documented in this encounter Plan of Treatment Upcoming Encounters Date Type Specialty Care Team Description 11/19/2020 Office Visit Pharmacy [facility] [address] [place] [address] 12/09/2020 [facility] Visit [facility] Vera Capellan, RN [address] [place] [address] [phone] 12/10/2020 Home Visit [facility] Rema Real LSW [address] [place] [address] [phone] 01/08/2021 Office Visit Orthopedics Zack Teague, [address] [place] [address] [phone] 01/14/2021 Office Visit Family Medicine Kevin Whiteside, [address] [place] [address] [phone] 02/02/2021 Office Visit Cardiology Rey Woodall MD [address] [place] [address] [phone] 03/18/2021 Office Visit Nephrology Erik Lenz MD [address] [facility] [place] [address] [phone] 08/18/2021 Office Visit Pulmonary Celsa Tafoya CRNP [address] [place] [address] [phone] Health Maintenance Due Date Last Done Comments Zoster Vaccines (3 of 3) 01/02/2020 11/07/2019, 11/24 Pneumococcal Vaccine: 65+ Years (1 of 1 - PPSV23) 2020 08/22/2009, 06/15/2006 DIABETES-HGBA1C EVERY 6 MONTHS 07/24/2020 01/23/2020, 11/07/2019, 08/09/2019, Additional history exists CKD GFR USE SMARTSET 89331 11/06/202005/06, 03/13/2020, 03/07/2020, Additional history exists DIABETES-FOOT EXAM 11/07/2020 11/07/2019, 0 01/01/2019, 12/29/2017, Additional history exists CKD PHOS USE SMARTSET 47513 12/23/2020 03/, 11/07/2019, 12/29/2017, Additional history exists DIABETES-URINE MICROALBUMIN EVERY 12 MONTHS 12/23/2020 12/24/2019, 11/30/2019, 05/24/2019, Additional history exists Yearly B-12 01/22/2021 01/23/2020, 02/24, 05/16/2018 DIABETES-EYE EXAM 04/07/2021 04/07/2020, , 02/24/2010 (Done elsewhere), Additional history exists CKD HGB USE SMARTSET 86162 05/06/202105/06, 03/13/2020, 11/30/2019, Additional history exists BREAST CANCER SCREENING DISCUSSION YEARLY AGES 40-75 10/01/2021 10/01/2020, 07/10/2019, 06/23/2018, Additional history exists *DEPRESSION SCREENING,ANNUAL FOR PTS [...] Documents on File Type Date Recorded Patient Table Worker Packager Expl 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
--- OUTSIDE RECORDS SUMMARY | 2023-06-01 05:13 | External Medical Summary ---
Author Name Unknown Address Unknown Organization [id number][place] [place] [address] [place] [address] Laboratory Report Ordering Provider Test Date Status BABSKEVIN 11/17/2020 13:00:18 Final Observation Date Value Abnormality Reference (Units ) Status Parathyrin.intact [Mass/volume] in Serum or Plasma 11/17/2020 13:00:18 59 15-65 (pg/mL) Final Performing Location [facility] [place] [address] [place] [address]
--- OUTSIDE RECORDS SUMMARY | 2023-06-01 05:13 | External Medical Summary ---
Author Name Unknown Address Unknown Organization K01:[facility] [place] [address] [place] [address] Laboratory Report Ordering Provider Test Date Status BABSKEVIN 11/17/2020 13:00:18 Final Observation Date Value Abnormality Reference (Units ) Status HbA1C 11/17/2020 13:00:18 8.3 Above high normal 4. 0-5.6 (%) Final Performing Location LABORATORY [facility] - [address] [place] [address]
--- OUTSIDE RECORDS SUMMARY | 2023-06-01 05:13 | External Medical Summary ---
Author Name Unknown Address Unknown Organization K01:LABORATORY [facility] [place] - [address] [place] [address] [place] [address] Laboratory Report Ordering Provider Test Date Status AMPARO GUADALUPE 11/17/2020 12:25:27 Final Observation Date Value Abnormality Reference (Units ) Status Bacteria identified in Unspecified specimen by Culture 11/17/2020 12:25:27 [id number]^KLEBSIELL A PNEUMONIAE Abnormal Final Performing Location [facility]ATORY [facility] [place] - [address] [place] [address] Ordering Provider Test Date Status AMPARO GUADALUPE 11/17/2020 12:25:27 Final Observation Date Value Abnormality Reference (Units) Status Ampicillin + Sulbactam 11/17/2020 12:25:27 4 Susceptible Final Cefepime susceptibility 11/17/2020 12:25:27 <=1 Susceptible Final Ceftriaxone suceptibility 11/17/2020 12:25:27 <=1 Susceptible Final Gentamicin susceptibility 11/17/2020 12:25:27 <=1 Susceptible Final Nitrofurantoin susceptibility 11/17/2020 12:25:27 <=16 Susceptible Final Piperacillin + Tazobactamsusceptibility 11/17/2020 12:25:27 <=4 Susceptible Final TMP-SMZ susceptibility 11/17/2020 12:25:27 <=20 Susceptible Final Performing Location LAB[facility]ATORY [facility] [place] - [address] [facility] [address]
--- OUTSIDE RECORDS SUMMARY | 2023-06-01 05:13 | External Medical Summary ---
Author Name Unknown Address Unknown Organization K0G:LABORATORY [facility] [place] [facility] - [address] [place] [address] Laboratory Report Ordering Provider Test Date Status KEVIN BRICE 11/17/2020 13:00:18 Final Observation Date Value Abnormality Reference (Units ) Status WBC, Total 11/17/2020 13:00:18 8.51 4.00-10.8 0 (K/uL) Final RBC 11/17/2020 13:00:18 4.71 3.85-5.15 (M/uL) Final Hemoglobin 11/17/2020 13:00:18 14.5 12.0-15.3 (g/dL) Final HCT 11/17/2020 13:00:18 46.5 Above high normal 36 .0-45.2 (%) Final MCV 11/17/2020 13:00:18 98.7 Above high normal 81 .5-97.5 (fL) Final MCH 11/17/2020 13:00:18 30.8 27.0-34.0 (pg) Final MCHC 11/17/2020 13:00:18 31.2 Below low normal 32. 0-36.0 (g/dL) Final RDW 11/17/2020 13:00:18 14.6 11.5-15.5 (%) Final Platelets 11/17/2020 13:00:18 263 140-400 (K /uL) Final MPV 11/17/2020 13:00:18 9.5 6.6-11.1 ( fL) Final Performing Location [facility]ATORY [facility] [place] [facility] - [address] [place] [address]
--- OUTSIDE RECORDS SUMMARY | 2023-06-01 05:13 | External Medical Summary | Summary of Care ---
Author Name Unknown Organization [facility] Address [facility] [place] [address] Care Team Providers Care Senior Java Programmer Name Role Phone Kevin Whiteside DO Primary Care Provider Reason for Visit * Reason Onset Date Comments Test Results 11/18/2020 Encounter Details Date Type Department Care Team Description 11/18/2020 Telephone Family Practice [facility] [address] [place] [address] Rema Gibbons PA-C [address] [place] [address] Test Results Allergies Active [...] 90 Tab 3 03/13/2020 Active DIURETIC TITRATION PLANIndications:Office Services 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 zahra diastolic congestive heart failure (HCC) [...] 0 05/08/2020 Active Blood Glucose Monitoring Suppl (VuPoynt Media GroupTOUCH ULTRA 2) w/Device KIT Use [...] TabletIndications:Ch ronic diastolic congestive heart failure ([facility]) Take 2 Tabs by mouth daily. 180 Tab 3 05/28/2020 Active Additional Information Patient taking differently: 40 mg Oral BID, Reported on 06/13/2020 colchicine 0.6 MG TabletIndications:Le ukocytoclastic vasculitis ([facility]) Take 1/2 tab daily [...] 10/14/2014 Overview: ICD-10 update of inactive term [place] filter in place 08/19/2014 History of [...] Miscellaneous Notes * Telephone Encounter - Linda Dexter LPN - 11/21/2020 8:33 AM EST Pt aware of message below and wants to see Dr Whiteside next week is possible for F/U per Linda Gibbons * Telephone Encounter - Hortencia Aguirre LPN - 11/19/2020 2:24 PM EST Left message for pt to return call. * Telephone Encounter - Izabela Curmp LPN - 11/18/2020 5:48 PM EST Left [...] unexpected or indeterminate finding on Stephanie Camp ([id number]) andasks that you review the following report. [...] Thank you, ELISSA Astorga Client Service Rep [facility] documented in this encounter Plan of Treatment Upcoming Encounters Date Type Specialty Care Team Description 12/01/2020 Office Visit Family Medicine Rema Gibbons PA-C [address] [address] [phone] 12/03/2020 Pharmacy [facility] [address] [place] [address] 12/09/2020 [facility] Visit [facility] Vera Capellan RN [address] [place] [address] [phone] 12/10/2020 Home Visit [facility] Rema Real STOCK UNLOADER [address] [place] [address] [phone] 01/08/2021 Office Visit Orthopedics Zack Teague, DO [address] [place] [address] [phone] 01/14/2021 Office Visit Family Medicine Kevin Whiteside, DO [address] [place] [address] [phone] 02/02/2021 Office Visit Cardiology Rey Woodall MD [address] [place] [address] [phone] 03/18/2021 Office Visit Nephrology Erik Lenz MD [address] [place] [address], [place] [address] [phone] 08/18/2021 Office Visit Pulmonary Celsa Tafoya CRNP [address] [facility] [place] [address] [phone] Health Maintenance Due Date Last Done Comments [...] Additional history exists CKD GFR USE SMARTSET 33608 05/17/202111/17, 05/06/2020, 03/13/2020, Additional history exists DIABETES-HGBA1C EVERY 6 MONTHS 05/17/2021 11/17/2020, 01/23/2020, 11/07/2019, Additional history exists BREAST CANCER SCREENING DISCUSSION YEARLY AGES 40-75 10/01/2021 10/01/2020, 07/10/2019, 06/23/2018, Additional history exists CKD HGB USE SMARTSET 68843 11/17/202111/17, 11/17/2020, 05/06/2020, Additional history exists CKD PHOS USE SMARTSET 13660 11/17/202110/28, 12/24/2019, 11/07/2019, Additional history exists *DEPRESSION [...] Documents on File Type Date Recorded Patient Mathematical Engineer Expl 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
--- OUTSIDE RECORDS SUMMARY | 2023-06-01 05:13 | External Medical Summary | Summary of Care ---
Author Name Unknown Organization [facility] Address [facility] [place] [address] Care Team Providers Care Manager Game Name Role Phone Kevin Whiteside DO Primary Care Provider Reason for Visit * Reason Onset Date Comments Test Results 11/18/2020 Encounter Details Date Type Department Care Team Description 11/18/2020 Telephone Family Practice [facility] [address] [place] [address] Rema Gibbons PA-C [address] [place] [address] Test Results Allergies Active [...] as of this encounter (statuses as of 11/19/2020) Medications Medication Sig Dispensed Refills Start Date [...] 90 Tab 3 03/13/2020 Active DIURETIC TITRATION PLANIndications:Threading Machine Feeder Automatic zahra diastolic congestive heart failure (HCC) If [...] 0 05/08/2020 Active Blood Glucose Monitoring Suppl (OpenSignalTOUCH ULTRA 2) w/Device KIT Use to test BG values 1 Kit 0 05/20/2020 Active Glucose Blood (ONETOUCH ULTRA BLUE) STRP Check sugars 3-4 times daily, E11.9 400 Strip 3 05/22/2020 Active TRULICITY 1.5 MG/0.5ML SOPNIndications:DM type 2 nursing care encounter ([facility]),Uncontrolled type 2 diabetes mellitus with stage 3 chronic kidney disease, with long-term current use of insulin ([facility]) inject 1.5mg (one pen) under the skin once weekly 6 mL 1 05/27/2020 Active furosemide (LASIX) 40 MG TabletIndications:Ch ronic diastolic congestive heart failure ([facility]) Take 2 Tabs by mouth daily. 180 Tab 3 05/28/2020 Active Additional Information Patient taking differently: 40 mg Oral BID, Reported on 06/13/2020 colchicine 0.6 MG TabletIndications:Le ukocytoclastic vasculitis ([facility]) Take 1/2 tab daily 45 Tab 1 [...] goal of 7.0%-8.0% ([facility]) Inject up to 30 units with meals [...] as of this encounter (statuses as of 11/19/2020) Active Problems Problem Noted Date Spinal stenosis [...] 10/14/2014 Overview: ICD-10 update of inactive term [place] filter in place 08/19/2014 History of pulmonary embolus (PE) 2013 Statin intolerance 07/16/2014 HTN, goal below 130/80 02/22/2014 Venous insufficiency 02/07/2013 ELISSA (obstructive sleep apnea) 09/16/2011 Overview: CPAP 11 cwp Mild, AHI 11.3 but with significant nocturnal hypoxemia Dicks Postsurgical hypothyroidism 06/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 documented as of this encounter (statuses as of 11/19/2020) Resolved Problems Problem Noted Date Resolved Date [...] as of this encounter (statuses as of 11/19/2020) Immunizations Name Administration Dates Next Due Pneumococcal [...] encounter Miscellaneous Notes * Telephone Encounter - Hortencia Aguirre LPN [...] unexpected or indeterminate finding on Stephanie Camp ([id number]) andasks that you review the following report. [...] Thank you, ELISSA Astorga Client Service Rep [facility] documented in this encounter Plan of Treatment Upcoming Encounters Date Type Specialty Care Team Description 12/01/2020 Office Visit Family Medicine Rema Gibbons PA-C [address] [place] [address] [address] [phone] 12/03/2020 Pharmacy Pharmacy [facility] [place] [address] [place] [address] [address] 12/09/2020 Home Visit [facility] Vera Capellan, RN [address] [place] [address] [address] [phone] 12/10/2020 Home Visit [facility] Rema Real LSW [address] [place] [address] [phone] 01/08/2021 Office Visit Orthopedics Zack Teague, DO [address] [place] [address] [phone] 01/14/2021 Office Visit Family Medicine Kevin Whiteside, DO [address] [place] [address] [phone] 02/02/2021 Office Visit Cardiology Rey Woodall MD [address] [place], [place] [id number] 03/18/2021 Office Visit Nephrology Erik Lenz MD [address] [place] [address], [place] [address] [phone] 08/18/2021 Office Visit Pulmonary Celsa Tafoya CRNP [address] [place] [id number] Health Maintenance Due Date Last Done Comments [...] Additional history exists CKD GFR USE SMARTSET 41891 05/17/202111/17, 05/06/2020, 03/13/2020, Additional history exists DIABETES-HGBA1C EVERY 6 MONTHS 05/17/2021 11/17/2020, 01/23/2020, 11/07/2019, Additional history exists BREAST CANCER SCREENING DISCUSSION YEARLY AGES 40-75 10/01/2021 10/01/2020, 07/10/2019, 06/23/2018, Additional history exists CKD HGB USE SMARTSET 34713 11/17/202111/17, 11/17/2020, 05/06/2020, Additional history exists CKD PHOS USE SMARTSET 02649 11/17/202110/28, 12/24/2019, 11/07/2019, Additional history exists *DEPRESSION [...] Documents on File Type Date Recorded Patient Executive Admin Expl 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
--- OUTSIDE RECORDS SUMMARY | 2023-06-01 05:13 | External Medical Summary | Summary of Care ---
Author Name Unknown Organization [place] [address] Care Team Providers Care Director Clinical Pharmacology Name Role Phone Whiteside Kevin Ocampomelinda Primary Care Provider Reason for Visit * Reason Comments [facility]: Maintenance Encounter Details Date Type Department Care Team Description 11/11/2020 Home Visit [facility] [address] [place] [address] Rema Real LSW [address] [facility] [place] [address] [phone] Allergies Active Allergy Reactions Severity Noted Date Comments Codeine 07/08/2014 hallucination Pollen 05/18/2019 Heparin 09/04/2009 Heparin Induced Thrombocytopenia Hydrocodone Neuro complications (Please comment) 07/28/2020 Empagliflozin Other (Please comment) Medium 05/17/2018 3 yeast infections in 6 weeks after starting Morphine And Related 09/16/1997 Hallucinations Tetanus Toxoid Other (Please comment) 06/15/2011 Passed out documented as of this encounter (statuses as of 11/11/2020) Medications Medication Sig Dispensed Refills Start Date [...] MG TabletIndications:Chr onic diastolic congestive heart failure ([facility]) Take 2 Tabs by mouth daily. 180 Tab 3 05/28/2020 Active Additional Information Patient taking differently: 40 mg Oral BID, Reported on 06/13/2020 colchicine 0.6 MG TabletIndications:Jacobo kocytoclastic vasculitis ([facility]) Take 1/2 tab daily 45 [...] goal of 7.0%-8.0% ([facility]) Inject up to 30 units [...] as of this encounter (statuses as of 11/11/2020) Active Problems Problem Noted Date Spinal stenosis [...] as of this encounter (statuses as of 11/11/2020) Resolved Problems Problem Noted Date Resolved Date [...] as of this encounter (statuses as of 11/11/2020) Immunizations Name Administration Dates Next Due Pneumococcal [...] Progress Notes * Rema Real LSW - 11/11/2020 1:53 PM ASHLEY MCCALL met with Stephanie for follow up and supportive visit. She reports she is going to PT at [facility] three days a week and finds them very supportive and helpful. She continues to have days of fatigue and pain r/t fibromyalgia. She reports increased depression due to ongoing isolation from family, fibromyalgia symptoms, insomnia and feelings of being lost. She shared thoughts and feelings around these issues. She has obtained a sun lamp which helps her feel better. She also reads, gets together with her friend in building and plays with her cats. Today she was cleaning and says she tries to do this on a good day. She has talked to [facility] Psychiatry and increase in [place] was recommended but has not happened. STEFANY will follow up with RN NORMA. STEFANY also offered to arrange counseling for her and she will consider. She is agreeable to follow with Psychiatry through [facility] and SW will see where this stands. She did fall within last month and we discussed use of PERS. She agreed for SW to explorethis option. SW will also explore if she qualifies for [place] through insurance. STEFANY will return in one month. STEFANY notes: . Sun lamp --[facility] -butch nash-ID [id number]-- [facility]-[id number] Has not had vaccine, plans to get when can-[facility] and [facility]-have number to call , encouragedto get vaccine. documented in this encounter Plan of Treatment Upcoming Encounters Date Type Specialty Care Team Description 11/19/2020 Office Visit Pharmacy [facility] [address] [place] [address] [address] 12/09/2020 Home Visit [facility] Vera Capellan RN [address] [place] [address] [phone] 12/10/2020 Home Visit [facility] Rema Real LSW [address] [place] [address] [address] [phone] 01/08/2021 Office Visit Orthopedics Zack Teague DO [address] [place] [address] [phone] 01/14/2021 Office Visit Family Medicine Kevin Whiteside DO [address] [place] [address] [phone] 02/02/2021 Office Visit Cardiology Rey Woodall MD [address] [place] [address] 03/18/2021 Office Visit Nephrology Erik Lenz MD [address] [place] [place] [address] 08/18/2021 Office Visit Pulmonary Celsa Tafoya CRNP [address] [place] [address] Health Maintenance Due Date Last Done Comments Zoster Vaccines (3 of 3) 01/02/2020 11/07/2019, 11/24 Pneumococcal Vaccine: 65+ Years (1 of 1 - PPSV23) 2020 08/22/2009, 06/15/2006 DIABETES-HGBA1C EVERY 6 MONTHS 07/24/2020 01/23/2020, 11/07/2019, 08/09/2019, Additional history exists CKD GFR USE SMARTSET 98033 11/06/202005/06, 03/13/2020, 03/07/2020, Additional history exists DIABETES-FOOT EXAM 11/07/2020 11/07/2019, 0 01/01/2019, 12/29/2017, Additional history exists CKD PHOS USE SMARTSET 54565 12/23/2020 03/, 11/07/2019, 12/29/2017, Additional history exists DIABETES-URINE MICROALBUMIN EVERY 12 MONTHS 12/23/2020 12/24/2019, 11/30/2019, 05/24/2019, Additional history exists Yearly B-12 01/22/2021 01/23/2020, 02/24, 05/16/2018 DIABETES-EYE EXAM 04/07/2021 04/07/2020, , 02/24/2010 (Done elsewhere), Additional history exists CKD HGB USE SMARTSET 53649 05/06/202105/06, 03/13/2020, 11/30/2019, Additional history exists BREAST [...] Documents on File Type Date Recorded Patient 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
--- OUTSIDE RECORDS SUMMARY | 2023-06-01 05:13 | External Medical Summary | Summary of Care ---
Author Name Unknown Organization [place] [address] Care Team Providers Care Control Panel Assembler Name Role Phone Kevin Whiteside DO Primary Care Provider Reason for Visit * Reason Comments Acute Had recent spell of vertigo and passing out, had it on Tuesday and has fallen seversl times in past month. Encounter Details Date Type Department Care Team Description 11/17/[address] [facility] [address] [place] [address] Rema Gibbons PA-C [address] [facility] [place] [address] Dizziness*; Syncope and collapse; Type 2 diabetes mellitus with hemoglobin A1c goal of 7.0%-8.0% ([facility]); 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, NYHA class 1 and CKD stage 3 ([facility]); Chronic diastolic congestive heart failure ([facility]); Mild episode of recurrent major depressive disorder ([facility]) Allergies Active Allergy Reactions Severity Noted [...] per week 30 Tab 3 0 Active rOPINIRole (REQUIP) 2 MG TabletIndications:R estless legs syndrome Take 1 Tab by mouth at bedtime. 90 Tab 3 0 Active metoprolol tartrate (LOPRESSOR) 25 MG TabletIndications:H [...] MG/0.5ML SOPNIndications:DM type 2 nursing care encounter ([facility]),Uncontrolled type 2 diabetes mellitus with stage 3 chronic kidney disease, with long-term current use of insulin ([facility]) inject 1.5mg (one pen) under the skin once weekly 6 mL 1 0 Active furosemide (LASIX) 40 MG TabletIndications:C hronic diastolic congestive heart failure ([facility]) Take 2 Tabs by mouth daily. 180 Tab 3 0 Active Additional Information Patient taking differently: 40 mg Oral BID, Reported on 06/13/2020 colchicine 0.6 MG TabletIndications:L eukocytoclastic vasculitis ([facility]) Take 1/2 tab daily 45 Tab 1 0 Active clobetasol propionate (TEMOVATE) 0.05 % creamIndications:Kalee rosas planus Apply to rash on the hands and dorsal feet twice daily x 1 week, then as needed for flares. 30 g 1 0 Active Tresiba FlexTouch 100 UNIT/ML Subcutaneous Solution Pen-injector (Insulin Degludec) Inject 50 Units under the skin daily. 45 mL 3 0 Active BD Pen Needle Short U/F 31G X 8 MM (Insulin Pen Needle) Use 5 times daily with insulin 200 Each 11 0 Active NovoLOG FlexPen 100 UNIT/ML Subcutaneous Solution Pen-injector (insulin aspart)Indications: Type 2 diabetes mellitus with hemoglobin A1c goal of 7.0%-8.0% ([facility]) Inject up to 30 units with meals plus sliding scale as directed by diabetes clinic 81 mL 3 0 Active Magnesium Oxide 400 (241.3 Mg) MG Oral TabletIndications:H ypomagnesemia Take 400 mg by mouth daily. 90 Tab 0 0 Active Vitamin D 25 MCG (1000 UT) Oral Tablet Take 1 Tab by mouth daily. 1 Tab 0 0 Active First-Mouthwash BLM Mouth/Throat SuspensionIndicatio ns:Pain in mouth Swish and spit 30 mL 4 times a day. 237 mL 1 0 Active Cyclobenzaprine HCl 10 MG Oral [...] AT BEDTIME 90 Cap 1 0 Active DULoxetine HCl 30 MG [...] a day. 270 Cap 0 1 Active buPROPion HCl ER (XL) 150 MG Oral Tablet Extended Release 24 Hour (Wellbutrin XL)Indications:Mild episode of recurrent major depressive disorder (HCC) Take 1 Tab by mouth daily. 30 Tab 5 1 Active clonazePAM 0.5 MG Oral Tablet (KlonoPIN)Indicatio ns:Anxiety state Take 1 Tab by mouth 2 times a day. 60 Tab 0 1 Active traMADol HCl 50 MG Oral Tablet (Ultram)Indications :Chronic pain syndrome Take 1 Tab by mouth every 8 hours as needed for Pain, Severe. 90 Tab 0 1 Active Sulfamethoxazole-Tr imethoprim 800-160 MG Oral Tablet (Bactrim DS) Take 1 Tab by mouth 2 times a day for 5 days. Until gone. 10 Tab 0 1 11/22/19 21 Active Doxycycline Hyclate 100 MG Oral Capsule Take 100 mg by mouth 2 times a day. 0 0 11/17/19 21 Discontinued documented as of this encounter [...] 10/14/2014 Overview: ICD-10 update of inactive term Pacific filter in place 08/19/2014 History of pulmonary [...] Reading Time Taken Comments Blood Pressure 120/64 11/17/2020 11:48 AM EST Pulse 88 11/17/2020 11:48 AM EST Temperature 35.8 C (96.4 F) 11/17/2020 11:[address] Respiratory Rate 16 11/17/2020 11:48 AM EST Oxygen Saturation - - Inhaled Oxygen Concentration - - Weight 149.7 kg (330 lb) 11/17/2020 11:48 AM EST Height - - Body Mass Index 56.64 07/15/2020 7:39 AM EDT documented in this encounter Progress Notes * Rema Gibbons PA-C - 11/17/2020 11:51 AM EST Subjective Stephanie Camp is a 65 year old female. Chief Complaint Patient presents with Acute Had recent spell of vertigo and passing out, had it on Tuesday and has fallen seversl times in past month. HPI: HPI Feeling off balance for the last 3-4 months. Sometimes has some dizziness when she stands up but that has been for years. Has fallen 3 times in the last 2 months. Thought she might have tripped. 2 days ago she walking to take her pills and woke up on the floor. She was seen in the ER 10/24 No symptoms prior to the episode. There was a period she doesn't recall. Slight cough but doesn't feel ill Sugars have been high and BSG was 240 that morning. Sugars have been sometimes high sometimes in the low 100s. Started wellbutrin 6 months ago No chest pain Sometimes some dyspnea Labs ordered by nephrology in September not done yet Sometimes has UTI and no other symptoms than not feeling herself No chest pain or worsening dyspnea No fevers, chills PMH: Patient Active Problem List Diagnosis Code Dyslipidemia E78.5 ELLIE (generalized anxiety disorder) F41.1 Postsurgical hypothyroidism E89.0 ELISSA (obstructive sleep apnea) G47.33 Venous insufficiency I87.2 HTN, goal below 130/80 I10 History of pulmonary embolus (PE) Z86.711 Statin intolerance Z78.[address] Z95.828 Type 2 diabetes mellitus with hemoglobin A1c goal of 7.0%-8.0% ([facility]) E11.9 Fibromyalgia M79.7 Abnormality of gait R26.9 Restless legs syndrome G25.81 Gastroesophageal reflux disease with esophagitis K21.00 Morbid obesity with BMI of 50.0-59.9, adult ([facility]) E66.01, Z68.43 Controlled substance agreement signed Z79.899 Chronic diastolic congestive heart failure ([facility]) I50.32 Mild episode of recurrent major depressive disorder ([facility]) F33.0 Lumbar radiculopathy M54.16 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, NYHA class 1 and CKD stage 3 ([facility]) I13.0, I50.30, N18.30 Chronic respiratory failure with hypoxia (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) N25.81 Vasculitis ([facility]) I77.6 Primary osteoarthritis of left knee M17.12 Spinal stenosis of lumbar region without neurogenic claudication M48.061 Current Outpatient Medications Medication Sig Dispense Refill buPROPion HCl ER (XL) 150 MG Oral Tablet Extended Release 24 Hour (Wellbutrin XL) Take 1 Tab bymouth daily. 30 Tab 5 clonazePAM 0.5 MG Oral Tablet (KlonoPIN) [...] BY MOUTH AT BEDTIME 90 Cap 1 Levothyroxine Sodium 200 MCG [...] mg by mouth daily. 90 Tab 0 NovoLOG FlexPen 100 UNIT/ML Subcutaneous Solution Pen-injector (insulin aspart) Inject up to 30units with meals plus sliding scale as directed by diabetes clinic 81 mL 3 BD Pen Needle Short U/F 31G X 8 MM (Insulin Pen Needle) Use 5 times daily with insulin 200 Each11 Tresiba FlexTouch 100 UNIT/ML Subcutaneous Solution Pen-injector (Insulin Degludec) Inject 50 Units under the skin daily. 45 mL 3 clobetasol propionate (TEMOVATE) 0.05 % cream Apply to rash on the hands and dorsal feet twice daily x 1 week, then as needed for flares. 30 g 1 colchicine 0.6 MG Tablet Take 1/2 tab daily 45 Tab 1 TRULICITY 1.5 MG/0.5ML SOPN inject 1.5mg (one pen) under the skin once weekly 6 mL 1 Glucose Blood (myWebRoomTOUCH ULTRA BLUE) STRP Check sugars 3-4 times daily, E11.9 400 Strip 3 Blood Glucose Monitoring Suppl (ONETOUCH ULTRA 2) w/Device KIT Use to test BG values 1 Kit 0 DIURETIC TITRATION PLAN If no improvement on day 3, contact heart failure managing provider. 1 Each 0 metoprolol tartrate (LOPRESSOR) 25 MG Tablet Take 0.5 Tabs by mouth 2 times a day. 90 Tab 3 rOPINIRole (REQUIP) 2 MG Tablet Take 1 Tab by mouth at bedtime. 90 Tab 3 metolazone (ZAROXOLYN) 2.5 MG Tablet Take as directed by physician 5 Tab 0 potassium chloride ER 10 MEQ TBCR Take one 3 days per week 30 Tab 3 ACCU-CHEK SOFTCLIX LANCETS MISC Test blood sugar three or four times daily as directed 400 Each3 omeprazole (PRILOSEC) 20 MG CPDR Take 1 Cap by mouth daily. 90 Cap 3 traZODone (DESYREL) 50 MG Tablet Take 1 Tab by mouth at bedtime. 90 Tab 3 ONETOUCH DELICA LANCETS 33G MISC Check blood sugars 3-4 times daily 180 Each 5 Cyclobenzaprine HCl 10 MG Oral Tablet (FLEXERIL) TAKE ONE TABLET BY MOUTH AT BEDTIME NEEDED FOR SPASM 30 Tab 0 Doxycycline Hyclate 100 MG Oral Capsule Take 100 mg by mouth 2 times a day. First-Mouthwash BLM Mouth/Throat Suspension Swish and spit 30 mL 4 times a day. 237 mL 1 Vitamin D 25 MCG (1000 UT) Oral Tablet Take 1 Tab by mouth daily. 1 Tab 0 furosemide (LASIX) 40 MG Tablet Take 2 Tabs by mouth daily. (Patient taking differently: Take 40 mgby mouth 2 times a day.) 180 Tab 3 zoster vac recomb adjuvanted (SHINGRIX) 50 MCG/0.5ML [...] times a day as needed for Constipation. Past Medical History: Diagnosis Date ELSIE (acute [...] COLONOSCOPY, DIAGNOSTIC (RECTUM) 02/18/2016 normal, repeat 10 yrs/[facility] COLONOSCOPY, GI REFERRAL OP 01/28/06 diverticulosis--repeat 10 years INCISION OF WINDPIPE, PLANNED 06/03/2011 TRACHEOSTOMY PLANNED performed by DANNY HOLDER [place] [facility] INJECT DX/THER SUBSTANCE INTERLAMINAR LUMBAR/SACRAL W IMAGE GUIDE 05/26/2020 INJECTION SPINE LUMBAR OR SACRAL performed by Raj Ahn DO at OR [facility] KNEE ARTHROSCOPY/DEBRIDEMENT 07/[address] PERMANENT GASTROSTOMY TUBE 09/06/09 GASTROSTOMY WITH CONSTUCTION GASTRIC TUBE performed by AMADOU NUNEZ at [facility] REMOVAL OF THYROID GLAND 06/15/2011 THYROIDECTOMY INCLUDING SUBSTERNAL THYROID CERVICAL APPROACH performed by DANNY HOLDER at [place] [facility] REMOVE GALLBLADDER 09/06/09 CHOLECYSTECTOMY performed by AMADOU NUNEZ at [facility] REPAIR RECURRENT INCISIONAL HERNIA 1998 REVISION OF COLOSTOMY, SIMPLE 1997 SACROILIAC JOINT INJECT W/GUIDANCE 07/28/2020 INJECTION SACROILIAC JOINT performed by Raj Ahn DO at OR [facility] SUTURE, LARGE INTESTINE W/COLOSTOMY 1996 perforation R colon with colostomy VENA CAVA FILTER/LIGATION/CLIP 08/19/09 Frank filter placement through the right femoral 08/19/[address] 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 Employer: [employer] Social Needs Financial resource strain: Not on file Food insecurity Worry: Never true Inability: Never true Transportation needs Medical: Not on file Non-medical: Not on file Tobacco Use Smoking status: Former Smoker Packs/day: 1.00 Years: 15.00 Pack years: 15.00 Quit date: 08/26/1997 Years since quittin.2 Smokeless tobacco: Never Used Substance and Sexual Activity Alcohol use: Not Currently Comment: rare Drug use: No Sexual activity: Not Currently Lifestyle Physical activity Days per week: Not on file Minutes per session: Not on file Stress: Not on file Relationships Social connections Talks on phone: Not on file Gets together: Not on file Attends sikh service: Not on file Active member of [...] Social History Narrative 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 Negative for chills and fever. HENT: Negative for congestion and sinus pressure. Respiratory: Negative for cough, shortness of breath and wheezing. Cardiovascular: Negative for chest pain and palpitations. Gastrointestinal: Negative for abdominal pain, diarrhea, nausea and vomiting. Genitourinary: Negative for dysuria. Musculoskeletal: Positive for arthralgias and myalgias. Neurological: Positive for syncope. Negative for weakness and numbness. Objective BP 120/64 | Pulse 88 | Temp 35.8 C (96.4 F) (Tympanic) | Resp 16 | Wt (!) 149.7 kg (330 lb) | LMP 03/11/2003 | BMI 56.64 kg/m | BSA 2.6 m Physical Exam Vitals signs and nursing note reviewed. Constitutional: General: She is not in acute distress. Appearance: Normal appearance. She is obese. She is not ill-appearing, toxic- appearing or diaphoretic. HENT: Head: Normocephalic and atraumatic. Nose: Nose normal. Mouth/Throat: Mouth: Mucous membranes are moist. Pharynx: No oropharyngeal exudate or posterior oropharyngeal erythema. Cardiovascular: Rate and Rhythm: Normal rate and regular rhythm. Pulmonary: Effort: Pulmonary effort is normal. Breath sounds: Normal breath sounds. No wheezing, rhonchi or rales. Neurological: Mental Status: She is alert. ASSESSMENT/PLAN: Dizziness (Primary) ?etiology Will check urine, cxr Labs are already ordered by nephrology and she will have them done today No chest pain, palpitations or dyspnea. Discussed zio/cardiac work up but she declines Recommend ER evaluation if recurrence of syncope - CULTURE, URINE, QUANTITATIVE UA + blood and leukocytes; start bactrim and get sulgure - URINALYSIS, POINT OF CARE - XR CHEST 2 VIEWS Syncope and collapse - CULTURE, URINE, QUANTITATIVE - URINALYSIS, POINT OF CARE Type 2 diabetes mellitus with hemoglobin A1c goal of 7.0%-8.0% (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) No worsening chest pain, dyspnea or leg swelling, will check cxr, labs already ordered by nephrology Chronic diastolic congestive heart failure ([facility]) - URINALYSIS, POINT OF CARE Mild episode of recurrent major depressive disorder ([facility]) Did start wellbutrin 6 months ago but still feeling down and not herself Consider increasing wellbutrin in the future Recommend she uses her walker when at home due to her recent falls Continue PT Follow up with PCP 2-3 weeks ER if syncope, worsening symptoms Rema Gibbons PA-C documented in this encounter Nursing Notes * Linda eDxter LPN - 11/17/2020 11:45 AM EST Chief Complaint Patient presents with Acute Had recent spell of vertigo and passing out, had it on Tuesday and has fallen seversl times in past month. documented in this encounter Plan of Treatment Upcoming Encounters Date Type Specialty Care Team Description 11/19/2020 Office Visit Pharmacy [facility] [address] [place] [address] 12/09/2020 Home Visit [facility] Vera Capellan RN [address] [place] [address] [phone] 12/10/2020 Home Visit [facility] Rema Real LSW [address] [place] [address] [phone] 01/08/2021 Office Visit Orthopedics Zack Teague, [address] [place] [address] [phone] 01/14/2021 Office Visit Family Medicine Kevin Whiteside, [address] [place] [address] [phone] 02/02/2021 Office Visit Cardiology Rey Woodall MD [address] [place] [address] [phone] 03/18/2021 Office Visit Nephrology Erik Lenz MD [address] [place] [address], [place] [address] [phone] 08/18/2021 Office Visit Pulmonary Celsa Tafoya CRNP [address] [place] [address] [phone] Pending Results Name Type Priority Associated Diagnoses Date /Time CULTURE, URINE, QUANTITATIVE Lab Routine Dizziness Syncope and collapse 11/17/2020 12:25 PM EST XR CHEST 2 VIEWS Medical Imaging Routine Dizziness 11/17/2020 12:55 PM EST Scheduled Orders Name Type Priority Associated Diagnoses Orde r Schedule URINALYSIS, POINT OF CARE Point of Care Testing - Unsolicited Results Routine Dizziness Syncope and collapse Chronic diastolic congestive heart failure (HCC) Ordered: 11/17/2020 Health Maintenance Due Date Last Done Comments Zoster Vaccines (3 of 3) 01/02/2020 11/07/2019, 11/24 Pneumococcal Vaccine: 65+ Years (1 of 1 - PPSV23) 2020 08/22/2009, 06/15/2006 DIABETES-HGBA1C EVERY 6 MONTHS 07/24/2020 01/23/2020, 11/07/2019, 08/09/2019, Additional history exists CKD GFR USE SMARTSET 98449 11/06/202005/06, 03/13/2020, 03/07/2020, Additional history exists DIABETES-FOOT EXAM 11/07/2020 11/07/2019, 0 01/01/2019, 12/29/2017, Additional history exists CKD PHOS USE SMARTSET 19868 12/23/2020 03/, 11/07/2019, 12/29/2017, Additional history exists DIABETES-URINE MICROALBUMIN EVERY 12 MONTHS 12/23/2020 12/24/2019, 11/30/2019, 05/24/2019, Additional history exists Yearly B-12 01/22/2021 01/23/2020, 02/24, 05/16/2018 DIABETES-EYE EXAM 04/07/2021 04/07/2020, , 02/24/2010 (Done elsewhere), Additional history exists BREAST CANCER SCREENING DISCUSSION YEARLY AGES 40-75 10/01/2021 10/01/2020, 07/10/2019, 06/23/2018, Additional history exists CKD HGB USE SMARTSET 07454 11/17/202111/17, 11/17/2020, 05/06/2020, Additional history exists *DEPRESSION SCREENING,ANNUAL FOR PTS [...] Associated Diagnosis Comments URINALYSIS, POINT OF CARE (ENTER/EDIT) Routine 11/17/2020 Syncope and collapse Type 2 diabetes mellitus with hemoglobin A1c goal of 7.0%-8.0% (HCC) Mild episode of recurrent major depressive disorder (HCC) documented in this encounter Results * URINALYSIS, POINT OF CARE (ENTER/EDIT) (11/17/2020) Color, Urine Light Yellow Yellow or Light Yellow Clarity, Urine Cloudy Clear Glucose, Urine Negative Negative mg/dL Bilirubin, Urine Negative Negative Ketone, Urine Negative Negative mg/dL Specific [place], Urine 1.020 1.003 - 1.030 Blood, Urine Trace-intact Negative pH, Urine 6.0 5.0 - 7.5 units Protein, Urine Negative Negative mg/dL Urobilinogen, Urine 0.2 0.2 - 1.0 mg/dL Nitrite, Urine Negative Negative Esterase, Urine Large Negative Specimen Urine documented in this encounter Visit Diagnoses Diagnosis Dizziness- Primary Dizziness and giddiness Syncope and collapse Type 2 diabetes mellitus with hemoglobin A1c goal of 7.0%-8.0% (HCC) 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, NYHA class 1 and CKD stage 3 (HCC) Chronic diastolic congestive heart failure (HCC) Chronic diastolic heart failure Mild episode of recurrent major depressive disorder (HCC) documented in this encounter Advance Directives Documents on File Type Date Recorded 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
--- OUTSIDE RECORDS SUMMARY | 2023-06-01 05:13 | External Medical Summary | Summary of Care ---
Author Name Unknown Organization [facility] Address [facility] [place] [address] Care Team Providers Care [employer] Dispatcher Name Role Phone Kevin Whiteside DO Primary Care Provider Reason for Visit * Reason Onset Date Comments Test Results 11/18/2020 Encounter Details Date Type Department Care Team Description 11/18/2020 Telephone Family Practice [facility] [address] [employer] [place] [address] Rema Gibbons PA-C [address] [employer] [place] [address] Test Results Allergies Active [...] as of this encounter (statuses as of 11/18/2020) Medications Medication Sig Dispensed Refills Start Date [...] 90 Tab 3 03/13/2020 Active DIURETIC TITRATION PLANIndications:Administrative Support Coordinator zahra diastolic congestive heart failure (HCC) [...] 0 05/08/2020 Active Blood Glucose Monitoring Suppl (OhaiTOUCH ULTRA 2) w/Device KIT Use to test BG values 1 Kit 0 05/20/2020 Active Glucose Blood (ONETOUCH ULTRA BLUE) STRP Check sugars 3-4 times daily, E11.9 400 Strip 3 05/22/2020 Active TRULICITY 1.5 MG/0.5ML SOPNIndications:DM type 2 nursing care encounter ([facility]),Uncontrolled type 2 diabetes mellitus with stage 3 chronic kidney disease, with long-term current use of insulin ([facility]) inject 1.5mg (one pen) under the skin once weekly 6 mL 1 05/27/2020 Active furosemide (LASIX) 40 MG TabletIndications:Ch ronic diastolic congestive heart failure ([facility]) Take 2 Tabs by mouth daily. 180 Tab 3 05/28/2020 Active Additional Information Patient taking differently: 40 mg Oral BID, Reported on 06/13/2020 colchicine 0.6 MG TabletIndications:Le ukocytoclastic vasculitis ([facility]) Take 1/2 tab daily 45 [...] 7.0%-8.0% ([facility]) Inject up to 30 units [...] as of this encounter (statuses as of 11/18/2020) Active Problems Problem Noted Date Spinal stenosis [...] 10/14/2014 Overview: ICD-10 update of inactive term Shelly filter in place 08/19/2014 History of pulmonary embolus (PE) 2013 Statin intolerance 07/16/2014 HTN, goal below 130/80 02/22/2014 Venous insufficiency 02/07/2013 ELISSA (obstructive sleep apnea) 09/16/2011 Overview: CPAP 11 cwp Mild, AHI 11.3 but with significant nocturnal hypoxemia Dicks Postsurgical hypothyroidism 06/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 documented as of this encounter (statuses as of 11/18/2020) Resolved Problems Problem Noted Date Resolved Date [...] as of this encounter (statuses as of 11/18/2020) Immunizations Name Administration Dates Next Due Pneumococcal [...] unexpected or indeterminate finding on Stephanie Camp ([id number]) andasks that you review the following report. [...] Thank you, ELISSA Astorga Client Service Rep [facility] documented in this encounter Plan of Treatment Upcoming Encounters Date Type Specialty Care Team Description 11/19/2020 Office Visit Pharmacy [facility] [address] [place] [address] 12/01/2020 Office Visit Family Medicine Rema Gibbons PA-C [address] [place] [address] [phone] 12/09/2020 Home Visit [facility] Vera Capellan, RN [address] [place] [address] [phone] 12/10/2020 Home Visit [facility] Rema Real LSW [address] [place] [address] [phone] 01/08/2021 Office Visit Orthopedics Zack Teague, DO [address] [place] [address] [phone] 01/14/2021 Office Visit Family Medicine Kevin Whiteside, DO [address] [place] [address] [phone] 02/02/2021 Office Visit Cardiology Rey Woodall MD [address] [place] [address] 03/18/2021 Office Visit Nephrology Erik [place] MD [address] [place] [address] 08/18/2021 Office Visit Pulmonary Celsa Tafoya CRNP [address] [place] [address] Health Maintenance Due Date [...] Additional history exists CKD GFR USE SMARTSET 03822 05/17/202111/17, 05/06/2020, 03/13/2020, Additional history exists DIABETES-HGBA1C EVERY 6 MONTHS 05/17/2021 11/17/2020, 01/23/2020, 11/07/2019, Additional history exists BREAST CANCER SCREENING DISCUSSION YEARLY AGES 40-75 10/01/2021 10/01/2020, 07/10/2019, 06/23/2018, Additional history exists CKD HGB USE SMARTSET 63392 11/17/202111/17, 11/17/2020, 05/06/2020, Additional history exists CKD PHOS USE SMARTSET 24943 11/17/202110/28, 12/24/2019, 11/07/2019, Additional history exists *DEPRESSION [...] Documents on File Type Date Recorded Patient Solution Analyst Expl 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
--- OUTSIDE RECORDS SUMMARY | 2023-06-01 05:13 | External Medical Summary ---
Author Name Unknown Address Unknown Organization [id number]:[facility]ATORY [facility] - [address] [place] [address] Laboratory Report Ordering Provider Test Date Status KEVIN BRICE 11/17/2020 13:00:18 Final Observation Date Value Abnormality Reference (Units ) Status BNP, Pro-hormone 11/17/2020 13:00:18 130 <30 0 (pg/mL) Final Performing Location LABORATORY [facility] - [address] [place] [address]
--- OUTSIDE RECORDS SUMMARY | 2023-06-01 05:13 | External Medical Summary ---
Author Name Unknown Address Unknown Organization K01:[facility] - [address] [place] [address] Laboratory Report Ordering Provider Test Date Status BABSKEVIN 11/17/2020 13:00:18 Final Observation Date Value Abnormality Reference (Units ) Status 25-OH Vitamin D total 11/17/2020 13:00:18 27 >19 (ng/mL) Final Performing Location [facility] - [address] [place] [address]
--- OUTSIDE RECORDS SUMMARY | 2023-06-01 05:13 | External Medical Summary | Summary of Care ---
Author Name Unknown Organization [place] [address] Care Team Providers Care Technical Publications Writer Name Role Phone Kevin Whiteside DO Primary Care Provider Reason for Visit * Reason Onset Date Comments Order Request 11/14/2020 Encounter Details Date Type Department Care Team Description 11/14/2020 Telephone Family Practice [facility] [address] [facility] [place] [address] Kevin Whiteside DO [address] [facility] [place] [address] Order Request Allergies Active [...] SOPNIndications:DM type 2 nursing care encounter ([facility]),Uncontrolled type 2 diabetes mellitus with stage 3 chronic kidney disease, with long-term current use of insulin ([facility]) inject 1.5mg (one pen) under the skin once weekly 6 mL 1 05/27/2020 Active furosemide (LASIX) 40 MG TabletIndications:Chr onic diastolic congestive heart failure ([facility]) Take 2 Tabs by mouth daily. 180 Tab 3 05/28/2020 Active Additional Information Patient taking differently: 40 mg Oral BID, Reported on 06/13/2020 colchicine 0.6 MG TabletIndications:Jacobo kocytoclastic vasculitis ([facility]) Take 1/2 tab daily 45 [...] of 7.0%-8.0% ([facility]) Inject up to 30 units [...] RPh - 11/17/2020 8:37 AM EST Called Av, informed them no paperwork received and requested refax to [facility]. Rose Barton, Pharm D Clinical Pharmacist 11/17/2020, 8:37 AM * Telephone Encounter - Jorgesara Isha StallingsELISSA - 11/14/2020 11:38 AM EST Angie from [employer] [facility] is calling, she faxed over an order on 11-06 for a continuous glucose monitor. She was following up to see if it was received and if it could be faxed back. documented in this encounter Plan of Treatment Upcoming Encounters Date Type Specialty Care Team Description 11/19/2020 Office Visit Pharmacy [facility] [address] [address] 12/09/2020 [facility] Visit [facility] Vera Capellan, RN [address] [place] [address] [phone] 12/10/2020 Home Visit [facility] Rema Real LSW [address] [place] [address] [phone] 01/08/2021 Office Visit Orthopedics Zack Teague, [address] [place] [address] [phone] 01/14/2021 Office Visit Family Medicine Kevin Whiteside, [address] [place] [address] [phone] 02/02/2021 Office Visit Cardiology Rey Woodall MD [address] [address] [address] [phone] 03/18/2021 Office Visit Nephrology Erik Lenz MD [address] [place] [address], [place] [address] [phone] 08/18/2021 Office Visit Pulmonary Celsa Tafoya CRNP [address] [place] [address] [phone] Health Maintenance Due Date Last Done Comments Zoster Vaccines (3 of 3) 01/02/2020 11/07/2019, 11/24 Pneumococcal Vaccine: 65+ Years (1 of 1 - PPSV23) 2020 08/22/2009, 06/15/2006 DIABETES-HGBA1C EVERY 6 MONTHS 07/24/2020 01/23/2020, 11/07/2019, 08/09/2019, Additional history exists CKD GFR USE SMARTSET 67982 11/06/202005/06, 03/13/2020, 03/07/2020, Additional history exists DIABETES-FOOT EXAM 11/07/2020 11/07/2019, 0 01/01/2019, 12/29/2017, Additional history exists CKD PHOS USE SMARTSET 07244 12/23/202011/26, 11/07/2019, 12/29/2017, Additional history exists DIABETES-URINE MICROALBUMIN EVERY 12 MONTHS 12/23/2020 12/24/2019, 11/30/2019, 05/24/2019, Additional history exists Yearly B-12 01/22/2021 01/23/2020, 02/24, 05/16/2018 DIABETES-EYE EXAM 04/07/2021 04/07/2020, , 02/24/2010 (Done elsewhere), Additional history exists CKD HGB USE SMARTSET 84794 05/06/202105/06, 03/13/2020, 11/30/2019, Additional history exists BREAST [...] Documents on File Type Date Recorded Patient Linoleum Tile Layer Expl 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
--- OUTSIDE RECORDS SUMMARY | 2023-06-01 05:13 | External Medical Summary ---
Author Name Unknown Address Unknown Organization K01:[facility]ATORY [facility] - [address] [place] [address] Laboratory Report Ordering Provider Test Date Status KEVIN BRICE 11/17/2020 13:00:18 Final Observation Date Value Abnormality Reference (Units ) Status BUN 11/17/2020 13:00:18 28 Above high normal 6-20 (mg/dL) Final Creatinine 11/17/2020 13:00:18 2.0 Above high normal 0.5-1.0 (mg/dL) Final Glomerular filtration rate/1.73 sq M.predicted [Volume Rate/Area] in Serum, Plasma or Blood by Creatinine-based formula (CKD-EPI) 11/17/2020 13:00:18 26.3 Below low normal >=60.0 (mL/min) Final Performing Location [facility]ATORY [facility] - [address] [place] [address]
--- OUTSIDE RECORDS SUMMARY | 2023-06-01 05:13 | External Medical Summary ---
Author Name Unknown Address Unknown Organization K0G:[facility]AT[facility] - [address] [place] [address] Laboratory Report Ordering Provider Test Date Status KEVIN BRICE 11/17/2020 13:00:18 Final Observation Date Value Abnormality Reference (Units ) Status SYNC LEUKOCYTES IN BLOOD BY AUTOMATED COUNT 11/17/2020 13:00:18 8.51 4.00-10.80 (K/uL) Final Segs 11/17/2020 13:00:18 62.9 40.0-75.0 (%) Final Lymphs % 11/17/2020 13:00:18 24.0 18.0-42.0 (%) Final Monos 11/17/2020 13:00:18 7.4 1.0-11.0 (%) Final Eosinophils 11/17/2020 13:00:18 5.1 0.0-6.0 (%) Final Basos 11/17/2020 13:00:18 0.6 0.0-2.0 (%) Final Absolute Segs 11/17/2020 13:00:18 5.36 1.80-7.70 (K/uL) Final Lymphs, absolute 11/17/2020 13:00:18 2.04 1.00-4.80 (K/ul) Final Monos, Abs 11/17/2020 13:00:18 0.63 0.00-1.10 (K/uL) Final Eos, Abs 11/17/2020 13:00:18 0.43 0.00-0.70 (K/uL) Final Basos, Abs 11/17/2020 13:00:18 0.05 0.00-0.20 (K/uL) Final Performing Location [facility] - [address] [place] [address]
--- OUTSIDE RECORDS SUMMARY | 2023-06-01 05:13 | External Medical Summary ---
Author Name Unknown Address Unknown Organization K01:[facility]ATORY [facility] - [address] [place] [address] Laboratory Report Ordering Provider Test Date Status BABSKEVIN 11/17/2020 13:00:18 Final Observation Date Value Abnormality Reference (Units ) Status Magnesium 11/17/2020 13:00:18 1.5 1.5-2.6 (m g/dL) Final Performing Location LABORATORY [facility] - [address] [place] [address]
--- OUTSIDE RECORDS SUMMARY | 2023-06-01 05:14 | External Medical Summary | Summary of Care ---
Author Name Unknown Organization [place] [address] Care Team Providers Care Manager Support Name Role Phone Kevin Whiteside DO Primary Care Provider Reason for Visit * Reason Onset Date Comments Acute 10/24/2020 Encounter Details Date Type Department Care Team Description 10/24/2020 Telephone [facility] [address] [place] [address] [facility], Nurse [facility] 132 [place] [address] [phone] Acute Allergies Active Allergy Reactions Severity Noted Date Comments Codeine 07/08/2014 hallucination Pollen 05/18/2019 Heparin 09/04/2009 Heparin Induced Thrombocytopenia Hydrocodone Neuro complications (Please comment) 07/28/2020 Empagliflozin Other (Please comment) Medium 05/17/2018 3 yeast infections in 6 weeks after starting Morphine And Related 09/16/1997 Hallucinations Tetanus Toxoid Other (Please comment) 06/15/2011 Passed out documented as of this encounter (statuses as of 10/24/2020) Medications Medication Sig Dispensed Refills Start Date [...] in 10/2019 1 Each 0 05/08/2020 Active gabapentin (NEURONTIN) 300 MG CapsuleIndications:Ty pe 2 diabetes mellitus with hemoglobin A1c goal of 7.0%-8.0% (HCC) TAKE ONE CAPSULE BY MOUTH THREE TIMES DAILY 270 Cap 0 05/20/2020 Active Additional Information Patient taking differently: 300 mg Oral TID, Taking 300mg in am and 600mg in pm, Reported on 07/17/2020 Blood Glucose Monitoring Suppl (LocalsensorTOUCH ULTRA 2) w/Device KIT Use to test BG values 1 Kit 0 05/20/2020 Active Glucose Blood (ONETOUCH ULTRA BLUE) STRP Check sugars 3-4 times daily, E11.9 400 Strip 3 05/22/2020 Active TRULICITY 1.5 MG/0.5ML SOPNIndications:DM type 2 nursing care encounter ([facility]),Uncontrolled type 2 diabetes mellitus with stage 3 chronic kidney disease, with long-term current use of insulin ([facility]) inject 1.5mg (one pen) under the skin once weekly 6 mL 1 05/27/2020 Active furosemide (LASIX) 40 MG TabletIndications:Chr onic diastolic congestive heart failure ([facility]) Take 2 Tabs by mouth daily. 180 Tab 3 05/28/2020 Active Additional Information Patient taking differently: 40 mg Oral BID, Reported on 06/13/2020 colchicine 0.6 MG TabletIndications:Jacobo kocytoclastic vasculitis ([facility]) Take 1/2 tab daily 45 Tab 1 [...] with insulin 200 Each 11 06/27/2020 Active buPROPion HCl ER (XL) 150 MG Oral Tablet Extended Release 24 Hour (Wellbutrin XL)Indications:Mild episode of recurrent major depressive disorder ([facility]) Take 1 Tab by mouth daily. 30 Tab 5 07/01/2020 Active NovoLOG FlexPen 100 UNIT/ML Subcutaneous Solution Pen-injector (insulin aspart)Indications:Ty pe 2 diabetes mellitus with hemoglobin A1c goal of 7.0%-8.0% ([facility]) Inject up to 30 units with meals [...] AT BEDTIME 90 Cap 1 09/23/2020 Active clonazePAM 0.5 MG Oral Tablet (KlonoPIN)Indications :Anxiety state TAKE ONE TABLET BY MOUTH TWICE DAILY 60 Tab 0 10/03/2020 Active DULoxetine HCl 30 MG Oral Capsule [...] mg daily. 90 Cap 3 10/02/2020 Active traMADol HCl 50 MG Oral Tablet (ULTRAM)Indications:C hronic pain syndrome Take 1 Tab by mouth every 8 hours as needed for Pain, Severe. 90 Tab 0 10/02/2020 Active documented as of this encounter (statuses as of 10/24/2020) Active Problems Problem Noted Date Spinal stenosis [...] as of this encounter (statuses as of 10/24/2020) Resolved Problems Problem Noted Date Resolved Date [...] as of this encounter (statuses as of 10/24/2020) Immunizations Name Administration Dates Next Due Pneumococcal [...] Miscellaneous Notes * Telephone Encounter - Don Tomas MD - 10/24/2020 4:09 PM EST Noted Don Yancey MD * Telephone Encounter - Maris Mariscal RN - 10/24/2020 2:44 PM EST [facility] Acute Call Date: 10/24/2020 Time: 2:44 PM Name: Stephanie Camp : 1955 Caller: Magaly Morales LES Relationship to pt: DAVID SALDANA No chief complaint on file. HPI: Stephanie Camp is a 65 year old female that is calling [facility] to report SOB ands/s of dehydration Nursing Assessment: Patient's chief complaint for this call: DAVID LES made home visit post ER visit. Pt went to the ER this am for a fall. States that she was very weak and her legs gave out. Pt had some bruising but no broken bones. Pt was discharged home. Pt did not received any fluids in the ER. Did not have anything to drink while there. Drank 1 bottle ofwater and a coffee today. At home visit pt was found to be hypoxic when arrived at the home. Pt's O2 sat 81% on RA. LES applied oxygen which the pt usually only wears at night. O2 sat increased slowly to 95% on 3L BP 90/60. Pt has s/s of dehydration. Notes dry mouth, tenting of skin, voided x 2 today dark strong smelling urine. Pt denies fever, cold or flu symptoms, Pain Has pain Pain level: 5 Location: all over soreness Quality of Pain: dull Does the pain radiate: No Baseline Assessment Able to performing ADLs at baseline (walking, daily tasks, etc.): No Chief Complaint is related to a chronic condition: No Patient prescribed oxygen? Yes, at night. wearing 3L L/min, not using as prescribed at night only Patient has been ordered DME equipment (assistive devices, respiratory equipment, etc.): No Medication Reconciliation: (See medication list) Received flu shot this season: Unknown Taking medication as ordered: Yes Medications ordered/taking to treat reason for call: No Reinforcement Education: Increase PO fluid intake Treatment/Plan: (need to report) Level of call: Acute Appointment scheduled for same day: Yes Electrical Engineering Draftsperson Provider Name: Linda Wilkinson RN Treatment plan until appointment: increase fluids Call back instructions provided to patient. documented in this encounter Plan of Treatment Upcoming Encounters Date Type Specialty Care Team Description 10/24/2020 Home Visit [facility] Linda Wilkinson RN [address] [place] [address] [phone] 10/25/2020 Scheduled Telephone [facility], Nurse [facility] [address] [place] [address] [phone] 10/26/2020 Scheduled Telephone [facility], Nurse [facility] [address] [place] [address] [phone] 10/27/2020 Office Visit Dermatology Apple Kaminski MD [address] [place] [address] [phone] 11/06/2020 Home Visit [facility] Vera Capellan RN [address] [place] [address] [phone] 11/11/2020 Home Visit [facility] Rema Real LSW [address] [place] [address] [phone] 11/13/2020 Office Visit Family Medicine Kevin Whiteside, [address] [place] [address] [phone] 11/19/2020 Office Visit Pharmacy [facility] [address] [place] [address] 01/08/2021 Office Visit Orthopedics Zack Teague, [address] [place] [address] [phone] 02/02/2021 Office Visit Cardiology Rey Woodall MD [address] [place] [address] [phone] 03/18/2021 Office Visit Nephrology Erik Lenz MD [address] [facility] [place] [address] [phone] 08/18/2021 Office Visit Pulmonary Celsa Tafoya CRNP [address] [place] [address] [phone] Health Maintenance Due Date Last Done Comments Zoster Vaccines (3 of 3) 01/02/2020 11/07/2019, 11/24 Pneumococcal Vaccine: 65+ Years (1 of 1 - PPSV23) 2020 08/22/2009, 06/15/2006 DIABETES-HGBA1C EVERY 6 MONTHS 07/24/2020 01/23/2020, 11/07/2019, 08/09/2019, Additional history exists CKD GFR USE SMARTSET 18086 11/06/202005/06, 03/13/2020, 03/07/2020, Additional history exists DIABETES-FOOT EXAM 11/07/2020 11/07/2019, 0 01/01/2019, 12/29/2017, Additional history exists CKD PHOS USE SMARTSET 06149 12/23/202011/26, 11/07/2019, 12/29/2017, Additional history exists DIABETES-URINE MICROALBUMIN EVERY 12 MONTHS 12/23/2020 12/24/2019, 11/30/2019, 05/24/2019, Additional history exists Yearly B-12 01/22/2021 01/23/2020, 02/24, 05/16/2018 DIABETES-EYE EXAM 04/07/2021 04/07/2020, , 02/24/2010 (Done elsewhere), Additional history exists CKD HGB USE SMARTSET 93586 05/06/202105/06, 03/13/2020, 11/30/2019, Additional history exists BREAST [...] Documents on File Type Date Recorded Patient Biscuit Packer Expl 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
--- OUTSIDE RECORDS SUMMARY | 2023-06-01 05:14 | External Medical Summary | Summary of Care ---
Author Name Unknown Organization [place] [address] Care Team Providers Care Water Regulator And Valve Repairer Name Role Phone Kevin Whiteside DO Primary Care Provider Reason for Visit * Reason Onset Date Comments [facility]: Maintenance 10/26/2020 Encounter Details Date Type Department Care Team Description 10/26/2020 Scheduled Telephone [facility] [address] [facility] [place] [address] [facility], Nurse [facility] [address] [facility] [place] [address] [phone] Allergies Active Allergy Reactions Severity Noted Date Comments Codeine 07/08/2014 hallucination Pollen 05/18/2019 Heparin 09/04/2009 Heparin Induced Thrombocytopenia Hydrocodone Neuro complications (Please comment) 07/28/2020 Empagliflozin Other (Please comment) Medium 05/17/2018 3 yeast infections in 6 weeks after starting Morphine And Related 09/16/1997 Hallucinations Tetanus Toxoid Other (Please comment) 06/15/2011 Passed out documented as of this encounter (statuses as of 10/26/2020) Medications Medication Sig Dispensed Refills Start Date [...] Reported on 07/17/2020 Blood Glucose Monitoring Suppl (ONETOUCH ULTRA 2) w/Device KIT Use to test BG values 1 Kit 0 05/20/2020 Active Glucose Blood (ONETOUCH ULTRA BLUE) STRP Check sugars 3-4 times daily, E11.9 400 Strip 3 05/22/2020 Active TRULICITY 1.5 MG/0.5ML SOPNIndications:DM type 2 nursing care encounter ([facility]),Uncontrolled type 2 diabetes mellitus with stage 3 chronic kidney disease, with long-term current use of insulin ([facility]) inject 1.5mg (one pen) under the skin once weekly 6 mL 1 05/27/2020 Active furosemide (LASIX) 40 MG TabletIndications:Chr onic diastolic congestive heart failure ([facility]) Take 2 Tabs by mouth daily. [...] XL)Indications:Mild episode of recurrent major depressive disorder ([facility]) Take 1 Tab by mouth daily. 30 [...] as of this encounter (statuses as of 10/26/2020) Active Problems Problem Noted Date Spinal stenosis [...] 10/14/2014 Overview: ICD-10 update of inactive term [place] filter in place 08/19/2014 History of pulmonary embolus (PE) 2013 Statin intolerance 07/16/2014 HTN, goal below 130/80 02/22/2014 Venous insufficiency 02/07/2013 ELISSA (obstructive sleep apnea) 09/16/2011 Overview: CPAP 11 cwp Mild, AHI 11.3 but with significant nocturnal hypoxemia Dicks Postsurgical hypothyroidism 06/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 documented as of this encounter (statuses as of 10/26/2020) Resolved Problems Problem Noted Date Resolved Date [...] as of this encounter (statuses as of 10/26/2020) Immunizations Name Administration Dates Next Due Pneumococcal [...] encounter Miscellaneous Notes * Telephone Encounter - Luh Connolly, LEXI - 10/26/2020 10:49 AM EST TPC to patient for f/u Still pretty sore. Main pain in bilat legs, back, and shoulder. Using tylenol q4-6 hr and heating pad for relief. Denies feeling more SOB at time. No longer wearing O2 continuous. Reports some sinus congestion Denies cough Appetite good, Staying hydrated. Denies dizziness Blood sugars running in 200s. Denies any over 300. Denies any needs/concerns at this time Reinforced 833# documented in this encounter Plan of Treatment Upcoming Encounters Date Type Specialty Care Team Description 10/27/2020 Office Visit Dermatology Apple Kaminski MD [address] [facility] [place], [place] [address] [phone] 11/06/2020 Home Visit [facility] Vera Capellan RN [address] [place] [address] [phone] 11/11/2020 Home Visit [facility] Rema Real LSW [address] [place] [address] [phone] 11/13/2020 Office Visit Family Medicine Kevin Whiteside, [address] [place] [address] [phone] 11/19/2020 Office Visit Pharmacy [facility] [address] [place] [address] 01/08/2021 Office Visit Orthopedics Zack Teague, [address] [place] [address] [phone] 02/02/2021 Office Visit Cardiology Rey Woodall MD [address] [place] [address] [phone] 03/18/2021 Office Visit Nephrology Erik Lenz MD [address] [facility] [place], [place] [address] [phone] 08/18/2021 Office Visit Pulmonary Celsa Tafoya CRNP [address] [place] [address] [phone] Health Maintenance Due Date Last Done Comments Zoster Vaccines (3 of 3) 01/02/2020 11/07/2019, 11/24 Pneumococcal Vaccine: 65+ Years (1 of 1 - PPSV23) 2020 08/22/2009, 06/15/2006 DIABETES-HGBA1C EVERY 6 MONTHS 07/24/2020 01/23/2020, 11/07/2019, 08/09/2019, Additional history exists CKD GFR USE SMARTSET 07331 11/06/202005/06, 03/13/2020, 03/07/2020, Additional history exists DIABETES-FOOT EXAM 11/07/2020 11/07/2019, 0 01/01/2019, 12/29/2017, Additional history exists CKD PHOS USE SMARTSET 77683 12/23/2020/, 11/07/2019, 12/29/2017, Additional history exists DIABETES-URINE MICROALBUMIN EVERY 12 MONTHS 12/23/2020 12/24/2019, 11/30/2019, 05/24/2019, Additional history exists Yearly B-12 01/22/2021 01/23/2020, 02/24, 05/16/2018 DIABETES-EYE EXAM 04/07/2021 04/07/2020, , 02/24/2010 (Done elsewhere), Additional history exists CKD HGB USE SMARTSET 52519 05/06/202105/06, 03/13/2020, 11/30/2019, Additional history exists BREAST [...] Documents on File Type Date Recorded Patient Pega Developer Expl 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
--- OUTSIDE RECORDS SUMMARY | 2023-06-01 05:14 | External Medical Summary | Summary of Care ---
Author Name Unknown Organization [place] [address] Care Team Providers Care Folder Hand Name Role Phone Kevin Whiteside DO Primary Care Provider Reason for Visit * Reason Onset Date Comments Medication Refill 11/08/2020 Encounter Details Date Type Department Care Team Description 11/08/[address] [facility] [address] [place] [address] Kevin Whiteside DO [address] [place] [address] Type 2 diabetes mellitus with hemoglobin A1c goal of 7.0%-8.0% ([facility]); Mild episode of recurrent major depressive disorder ([facility]); Anxiety state; Chronic pain syndrome Allergies Active Allergy Reactions Severity Noted Date Comments Codeine 07/08/2014 hallucination Pollen 05/18/2019 Heparin 09/04/2009 Heparin Induced Thrombocytopenia Hydrocodone Neuro complications (Please comment) 07/28/2020 Empagliflozin Other (Please comment) Medium 05/17/2018 3 yeast infections in 6 weeks after starting Morphine And Related 09/16/1997 Hallucinations Tetanus Toxoid Other (Please comment) 06/15/2011 Passed out documented as of this encounter (statuses as of 11/10/2020) Medications Medication Sig Dispensed Refills Start Date [...] 3 02/26/2020 Active rOPINIRole (REQUIP) 2 MG TabletIndications:R estless legs syndrome Take 1 Tab by mouth at bedtime. 90 Tab 3 03/13/2020 Active metoprolol tartrate (LOPRESSOR) 25 MG TabletIndications:H [...] 0 05/08/2020 Active Blood Glucose Monitoring Suppl (Atomic MogulsUCH ULTRA 2) w/Device KIT Use to test BG values 1 Kit 0 05/20/2020 Active Glucose Blood (ONETOUCH ULTRA BLUE) STRP Check sugars 3-4 times daily, E11.9 400 Strip 3 05/22/2020 Active TRULICITY 1.5 MG/0.5ML SOPNIndications:DM type 2 nursing care encounter ([facility]),Uncontrolled type 2 diabetes mellitus with stage 3 chronic kidney disease, with long-term current use of insulin ([facility]) inject 1.5mg (one pen) under the skin once weekly 6 mL 1 05/27/2020 Active furosemide (LASIX) 40 MG TabletIndications:C hronic diastolic congestive heart failure ([facility]) Take 2 Tabs by mouth daily. 180 Tab 3 05/28/2020 Active Additional Information Patient taking differently: 40 mg Oral BID, Reported on 06/13/2020 colchicine 0.6 MG TabletIndications:L eukocytoclastic vasculitis ([facility]) Take 1/2 tab daily 45 Tab 1 [...] goal of 7.0%-8.0% ([facility]) Inject up to 30 units with meals [...] day. 0 07/22/2020 Active First-Mouthwash BLM Mouth/Throat SuspensionIndicatio ns:Pain in [...] Pain, Severe. 90 Tab 0 11/10/2020 Active gabapentin (NEURONTIN) 300 MG CapsuleIndications: Type 2 diabetes mellitus with hemoglobin A1c goal of 7.0%-8.0% (HCC) TAKE ONE CAPSULE BY MOUTH THREE TIMES DAILY 270 Cap 0 05/20/2020 1 Discontinue d(Refill) buPROPion HCl ER (XL) 150 MG Oral Tablet Extended Release 24 Hour (Wellbutrin XL)Indications:Mild episode of recurrent major depressive disorder (HCC) Take 1 Tab by mouth daily. 30 Tab 5 07/01/2020 1 Discontinue d(Refill) clonazePAM 0.5 MG Oral Tablet (KlonoPIN)Indicatio ns:Anxiety state TAKE ONE TABLET BY MOUTH TWICE DAILY 60 Tab 0 10/03/2020 1 Discontinue d(Refill) traMADol HCl 50 MG Oral Tablet (ULTRAM)Indications :Chronic pain syndrome Take 1 Tab by mouth every 8 hours as needed for Pain, Severe. 90 Tab 0 10/02/2020 1 Discontinue d(Refill) documented as of this encounter (statuses as of 11/10/2020) Active Problems Problem Noted Date Spinal stenosis [...] as of this encounter (statuses as of 11/10/2020) Resolved Problems Problem Noted Date Resolved Date [...] as of this encounter (statuses as of 11/10/2020) Immunizations Name Administration Dates Next Due Pneumococcal [...] encounter Miscellaneous Notes * Telephone Encounter - Ricardo Martinez MD - 11/10/2020 9:07 AM EST Signed Prescriptions: Disp Refills Gabapentin 300 MG Oral Capsule (Neurontin) 270 Cap0 Sig: Take 1 Cap by mouth 3 times a day.Authorizing Provider: RICARDO MARTINEZ buPROPion HCl ER (XL) 150 MG Oral Tablet E*30 Tab 5 Sig: Take 1 Tab by mouth daily.Authorizing Provider: RICARDO MARTINEZ clonazePAM 0.5 MG Oral Tablet (KlonoPIN) 60 Tab 0 Sig: Take 1 Tab by mouth 2 times a day.Authorizi ng Provider: RICARDO MARTINEZ traMADol HCl 50 MG Oral Tablet (Ultram) 90 Tab 0 Sig: Take 1 Tabby mouth every 8 hours as needed for Pain, Severe.Authorizing Provider: RICARDO MARTINEZ------- * Telephone Encounter - Ricardo Martinez MD - 11/10/2020 9:06 AM EST "I have reviewed the patient's controlled substance dispensing history in the Prescription Drug Monitoring Program in compliance with the [facility] regulations before prescribing a controlled substance." * Telephone Encounter - Jennifer Gann LPN - 11/10/2020 8:45 AM EST Message from [employer]: Refills have been requested for the following medications: gabapentin (NEURONTIN) 300 MG Capsule [Kevin Whiteside DO] buPROPion HCl ER (XL) 150 MG Oral Tablet Extended Release 24 Hour (Wellbutrin XL) [Kevin Whiteside DO] clonazePAM 0.5 MG Oral Tablet (KlonoPIN) [Sanjiv Isabel DO] traMADol HCl 50 MG Oral Tablet (ULTRAM) [Kevin Whiteside DO] Preferred pharmacy : [facility] [id number] documented in this encounter Plan of Treatment Upcoming Encounters Date Type Specialty Care Team Description 11/11/2020 Home Visit [facility] Rema Real LSW [address] [place] [address] [phone] 11/13/2020 Office Visit Family Medicine Kevin Whiteside DO [address] [address] [phone] 11/19/2020 Office Visit Pharmacy [facility] [address] [place] [address] 12/09/2020 Home Visit [facility] Vera Capellan RN [address] [place] [address] [phone] 01/08/2021 Office Visit Orthopedics Zack Teague DO [address] [address] [phone] 02/02/2021 Office Visit Cardiology Rye Woodall MD [address] [place] [address] [phone] 03/18/2021 Office Visit Nephrology Erik Lenz MD [address] [place] [address] [phone] 08/18/2021 Office Visit Pulmonary Celsa Tafoya CRNP [address] [address] [phone] Health Maintenance Due Date Last Done Comments Zoster Vaccines (3 of 3) 01/02/2020 11/07/2019, 11/24 Pneumococcal Vaccine: 65+ Years (1 of 1 - PPSV23) 2020 08/22/2009, 06/15/2006 DIABETES-HGBA1C EVERY 6 MONTHS 07/24/2020 01/23/2020, 11/07/2019, 08/09/2019, Additional history exists CKD GFR USE SMARTSET 07803 11/06/202005/06, 03/13/2020, 03/07/2020, Additional history exists DIABETES-FOOT EXAM 11/07/2020 11/07/2019, 0 01/01/2019, 12/29/2017, Additional history exists CKD PHOS USE SMARTSET 23368 12/23/2020 03/3 , 11/07/2019, 12/29/2017, Additional history exists DIABETES-URINE MICROALBUMIN EVERY 12 MONTHS 12/23/2020 12/24/2019, 11/30/2019, 05/24/2019, Additional history exists Yearly B-12 01/22/2021 01/23/2020, 02/24, 05/16/2018 DIABETES-EYE EXAM 04/07/2021 04/07/2020, , 02/24/2010 (Done elsewhere), Additional history exists CKD HGB USE SMARTSET 83089 05/06/202105/06, 03/13/2020, 11/30/2019, Additional history exists BREAST [...] episode of recurrent major depressive disorder (HCC) Anxiety state Anxiety state, unspecified Chronic pain syndrome documented in this encounter Advance Directives Documents on File Type Date Recorded Patient Solution Designer Expl 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
--- OUTSIDE RECORDS SUMMARY | 2023-06-01 05:14 | External Medical Summary | Summary of Care ---
Author Name Unknown Organization [place] [address] Care Team Providers Care Clerical Aide Teacher Name Role Phone Sergey Whitesideronit Ocampomelinda Primary Care Provider Encounter Details Date Type Department Care Team Description 10/24/2020 Scan Encounter Unspecified Department <No scans attached> [...] as of this encounter (statuses as of 10/28/2020) Medications Medication Sig Dispensed Refills Start Date [...] Reported on 07/17/2020 Blood Glucose Monitoring Suppl (Allied FiberTOUCH ULTRA 2) w/Device KIT Use to test BG values 1 Kit 0 05/20/2020 Active Glucose Blood (ONETOUCH ULTRA BLUE) STRP Check sugars 3-4 times daily, E11.9 400 Strip 3 05/22/2020 Active TRULICITY 1.5 MG/0.5ML SOPNIndications:DM type 2 nursing care encounter (HCC),Uncontrolled type 2 diabetes mellitus with stage 3 chronic kidney disease, with long-term current use of insulin ([facility]) inject 1.5mg (one pen) under the skin [...] [facility]) Inject up to 30 units with meals [...] as of this encounter (statuses as of 10/28/2020) Active Problems Problem Noted Date Spinal stenosis [...] 10/14/2014 Overview: ICD-10 update of inactive term Story filter in place 08/19/2014 History of pulmonary embolus (PE) 2013 Statin intolerance 07/16/2014 HTN, goal below 130/80 02/22/2014 Venous insufficiency 02/07/2013 ELISSA (obstructive sleep apnea) 09/16/2011 Overview: CPAP 11 cwp Mild, AHI 11.3 but with significant nocturnal hypoxemia Dicks Postsurgical hypothyroidism 06/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 documented as of this encounter (statuses as of 10/28/2020) Resolved Problems Problem Noted Date Resolved Date [...] as of this encounter (statuses as of 10/28/2020) Immunizations Name Administration Dates Next Due Pneumococcal [...] Encounters Date Type Specialty Care Team Description 11/04/2020 Telemedicine [facility] Migdalia Goldstein DO [address] [place] [address] Magaly Morales, Community Health Supervisor [employer] [address] [place] [address] [phone] 11/06/2020 Home Visit [facility] Vera Capellan RN [address] [place] [address] [place] [address] [phone] 11/11/2020 Home Visit [facility] Rema Real LSW [address] [place] [address] [phone] 11/13/2020 Office Visit Family Medicine Kevin Whiteside, DO [address] [place] [address] [phone] 11/19/2020 Office Visit Pharmacy [facility] [address] [place] [address] 01/08/2021 Office Visit Orthopedics Zack Teague, DO [address] [place] [address] [phone] 02/02/2021 Office Visit Cardiology Rey Woodall MD [address] [place] [address] [phone] 03/18/2021 Office Visit Nephrology Erik Lenz MD [address] [place] [address] [phone] 08/18/2021 Office Visit Pulmonary Celsa Tafoya CRNP [address] [place] [address] [phone] Health Maintenance Due Date Last Done Comments Zoster Vaccines (3 of 3) 01/02/2020 11/07/2019, 11/24 Pneumococcal Vaccine: 65+ Years (1 of 1 - PPSV23) 2020 08/22/2009, 06/15/2006 DIABETES-HGBA1C EVERY 6 MONTHS 07/24/2020 01/23/2020, 11/07/2019, 08/09/2019, Additional history exists CKD GFR USE SMARTSET 81041 11/06/202005/06, 03/13/2020, 03/07/2020, Additional history exists DIABETES-FOOT EXAM 11/07/2020 11/07/2019, 0 01/01/2019, 12/29/2017, Additional history exists CKD PHOS USE SMARTSET 21799 12/23/2020 03/3 , 11/07/2019, 12/29/2017, Additional history exists DIABETES-URINE MICROALBUMIN EVERY 12 MONTHS 12/23/2020 12/24/2019, 11/30/2019, 05/24/2019, Additional history exists Yearly B-12 01/22/2021 01/23/2020, 02/24, 05/16/2018 DIABETES-EYE EXAM 04/07/2021 04/07/2020, , 02/24/2010 (Done elsewhere), Additional history exists CKD HGB USE SMARTSET 65859 05/06/202105/06, 03/13/2020, 11/30/2019, Additional history exists BREAST [...] Documents on File Type Date Recorded Patient Chimney Construction Supervisor Expl 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
--- OUTSIDE RECORDS SUMMARY | 2023-06-01 05:14 | External Medical Summary | Summary of Care ---
Author Name Unknown Organization [place] [address] Care Team Providers Care Studio Producer Name Role Phone Whiteside Kevin Ocampomelinda Primary Care Provider Reason for Visit * Reason Comments [facility]: Maintenance Encounter Details Date Type Department Care Team Description 11/06/2020 Home Visit [facility], [facility] [address] [facility] [place] [address] Vera Capellan RN [address] [place] [address] [phone] Benign hypertensive heart and kidney disease with [...] as of this encounter (statuses as of 11/06/2020) Medications Medication Sig Dispensed Refills Start Date [...] of recurrent major depressive disorder ([facility]) Take 1 Tab by mouth daily. [...] as of this encounter (statuses as of 11/06/2020) Active Problems Problem Noted Date Spinal stenosis [...] Overview: ICD-10 update of inactive term [place] filter in place 08/19/2014 History of pulmonary embolus (PE) 2013 Statin intolerance 07/16/2014 HTN, goal below 130/80 02/22/2014 Venous insufficiency 02/07/2013 ELISSA (obstructive sleep apnea) 09/16/2011 Overview: CPAP 11 cwp Mild, AHI 11.3 but with significant nocturnal hypoxemia Dicks Postsurgical hypothyroidism 06/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 documented as of this encounter (statuses as of 11/06/2020) Resolved Problems Problem Noted Date Resolved Date [...] as of this encounter (statuses as of 11/06/2020) Immunizations Name Administration Dates Next Due Pneumococcal [...] Sign Reading Time Taken Comments Blood Pressure 110/64 11/06/2020 11:58 AM EST Pulse 74 11/06/2020 11:58 AM EST Temperature 35.9 C (96.7 F) 11/06/2020 1 1:58 AM EST Respiratory Rate 18 11/06/2020 11:5 8 AM EST Oxygen Saturation 96% 11/06/2020 11: 58 AM EST with oxygen on at 2 l/min via nc Inhaled Oxygen Concentration - - Weight - - Height - - Body Mass Index - - documented in this encounter Progress Notes * Vera Capellan RN - 11/06/2020 11:30 AM EST [facility] Spool Cleaner Monthly Visit Date: 11/06/2020 Time: 11:48 AM Name: Stephanie Camp : 1955 Current Concerns: Patient seen for return RNCM visit Still going to PT 3 days a week for back pain and to strengthen legs Today pain is 5/10 - states she tried to do things and can't do much because of the pain - frustrated with this States she usually feels much better right after therapy but it does not last Wearing oxygen more during the day at 2 L d/t to multiple low levels Lungs clear bilaterally. BSG was 300 - states that the highest it has been in a while - usually ranges in the 200's. Pt had psychiatry telemed appt and it was mentioned to consider increased wellbutrin to 300mg - msgsent to MD for clarification Physical Exam: BP 110/64 | Pulse 74 | Temp 35.9 C (96.7 F) | Resp 18 | LMP 03/11/2003 | SpO2 96% Comment: with oxygen on at 2 l/min via nc Pain 5 Physical Exam Constitutional: Appearance: She [...] questionnaires available. No change in living situation. Continues to have depression and frustrations with chronic pain. She states she usually is more depressed when her pain is worse and limits her activity. Advanced Care Planning: POLST. Patient's Goals of [...] fluid restriction Ck bsgs and record tid - followed by MTM clinic Wear b/l le support hose-on day/off night Zaroxolyn prn for fluid overload-take only as advised [facility] PT [facility] Interventions Provided: Home Intervention: Other; Evaluation Reinforced current Plan of Care, including self-management and medication regimen Patient's 'Red Flags': 1. Increased SOB 2. Increased Edema 3. Worsening pain Patient Needs to Remember: Call [facility] at with any new or worsening [...] & schedule home visit with care steam generating powerplant mechanic(s)as indicated. Provider is in agreement with Plan of Care: Yes Scheduled to follow up with patient in one month. Vera Capellan RN 11/06/2020 11:48 AM documented in this encounter Plan of Treatment Upcoming Encounters Date Type Specialty Care Team Description 11/11/2020 Home Visit [facility] Rema Real LSW [address] [place] [address] [phone] 11/13/2020 Office Visit Family Medicine Kevin Whiteside DO [address] [address] [phone] 11/19/2020 Office Visit Pharmacy [facility] [place] [address] [place] [address] 12/09/2020 Home Visit [facility] Vera Capellan RN [address] [place] [address] [phone] 01/08/2021 Office Visit Orthopedics Zack Teague DO [address] [address] [phone] 02/02/2021 Office Visit Cardiology Rey Woodall MD [address] [address] [phone] 03/18/2021 Office Visit Nephrology Erik Lenz MD [address] [place] [address] [place] [address] [phone] 08/18/2021 Office Visit Pulmonary Celsa Tafoya CRNP [address] [place] [address] [phone] Health Maintenance Due Date Last Done Comments Zoster Vaccines (3 of 3) 01/02/2020 11/07/2019, 11/24 Pneumococcal Vaccine: 65+ Years (1 of 1 - PPSV23) 2020 08/22/2009, 06/15/2006 DIABETES-HGBA1C EVERY 6 MONTHS 07/24/2020 01/23/2020, 11/07/2019, 08/09/2019, Additional history exists CKD GFR USE SMARTSET 42101 11/06/202005/06, 03/13/2020, 03/07/2020, Additional history exists DIABETES-FOOT EXAM 11/07/2020 11/07/2019, 0 01/01/2019, 12/29/2017, Additional history exists CKD PHOS USE SMARTSET 81410 12/23/202011/26, 11/07/2019, 12/29/2017, Additional history exists DIABETES-URINE MICROALBUMIN EVERY 12 MONTHS 12/23/2020 12/24/2019, 11/30/2019, 05/24/2019, Additional history exists Yearly B-12 01/22/2021 01/23/2020, 02/24, 05/16/2018 DIABETES-EYE EXAM 04/07/2021 04/07/2020, , 02/24/2010 (Done elsewhere), Additional history exists CKD HGB USE SMARTSET 75734 05/06/202105/06, 03/13/2020, 11/30/2019, Additional history exists BREAST [...] Documents on File Type Date Recorded Patient Tool Polishing Machine Operator Expl anation Advanced Directive 08/22/2009 [...]
--- OUTSIDE RECORDS SUMMARY | 2023-06-01 05:14 | External Medical Summary | Summary of Care ---
Author Name Unknown Organization [place] [address] Care Team Providers Care Manager Plan Name Role Phone Stevo Kevin Ocampomelinda Primary Care Provider Reason for Visit * Reason Comments [facility]: Acute Encounter Details Date Type Department Care Team Description 10/24/2020 [facility] Visit [facility] [address] [place] [address] Linda Wilkinson RN [address] [place] [address] [phone] Abnormality of gait*; Primary osteoarthritis of both knees; Moderate episode of recurrent major depressive disorder (HCC) Allergies Active Allergy Reactions Severity Noted [...] MG TabletIndications:Chr onic diastolic congestive heart failure ([facility]) Take 2 Tabs by mouth daily. [...] Sign Reading Time Taken Comments Blood Pressure 112/58 10/24/2020 4:32 PM EST Pulse 86 10/24/2020 4:29 PM EST Temperature 36.5 C (97.7 F) 10/24/2020 4:29 PM ES T Respiratory Rate 18 10/24/2020 4:29 PM EST Oxygen Saturation 98% 10/24/2020 4:29 PM EST Inhaled Oxygen Concentration - - Weight - - Height - - Body Mass Index - - documented in this encounter Progress Notes * Linda Wilkinson, RN - 10/24/2020 4:11 PM EST [facility] Educational InterpreterPigment Pusher Visit Date: 10/24/2020 Time: 4:12 PM Name: Stephanie Camp : 1955 Current Concerns: Acute visit made today to assess hydration status. Pt had a fall this am and was evaluated in the ER. No fractures were noted and pt returned to home.Pt had a [facility] home visit following the ER Per ALLIE Rios: Pt AOx3 at time of visit. Pt states she had just returned home from ED s/p fall this AM. During interview portion of visit, pt appeared to be mildly SOB, continued to talk and answer questions appropriately. Vitals check revealed SpO2 in the 70-80s. resp even and unlabored. Pt uses O2 @HS via CPAP. FL applied concentrator and placed on pt. SpO2 began to improve immediately to 90+. Intake notified immediately of pt's condition via [facility] connect. Intake nurse talked with LES and pt over phone. Intake nurse instructed pt to drink water and wear O2 until RN arrived to assess her. Pt sitting in recliner when I arrived. She remains alert and oriented. She c/o chronic knee and back pain. Pt reported to me that her fall this am was due to her legs given out.. She states they justgive out at times. Pt has been attending physical therapy due to leg weakness and falls. She goes to therapy 3 days a week and drives herself. Pt needs a knee replacement and was told by the surgeon it could not be done until her weight was down to 265 Pt denies any recent illness, N/V/ or diarrhea. She states appetite has been "normal". Pt states she loves to cook and her neighbor across the ham often comes to eat dinner with her. She plans to make chicken or have soup and a sandwich tonight. Pt reports to drinking normally 2-3 bottles of water a day and coffee. Yesterday she had 3 bottles of water and 3 cups of coffee. She had only had one bottle of water earlier today due to going to the ER but she had another empty bottle near her and was drinking coffee during visit. Mucus membranes/ mouth are moist. No tenting of skin noted. Veins are prominent without flattening and rebound quickly when depressed. Pt does not appear to be dehydrated. BP on left was 112/58 and 102/60 on right. O2 sat 98% on 2 lpm n/c. Pt's main complaint at visit was being depressed. She became tearful stating she hasn't seen her family in a year due. Pt denies seeing a psychiatrist or counselor. Her antidepressants are managed byPCP. Note routed to CM to follow-up with pt for poss telepsych visit. Abrasions noted to RFA from cat scratches. No s/s infection noted. Chronic RLE edema. Problems/Symptoms: Review of Systems Constitutional: Negative for appetite change, chills and fever. HENT: Positive for congestion. Negative for rhinorrhea, sore throat and trouble swallowing. Eyes: Negative. Respiratory: Positive for shortness of breath (pt reports shortness of breath with activity, resolves with rest, reported as no worsening from baseline). Negative for cough and wheezing. 2 lpm n/c at hs and PRN, on during visit Cardiovascular: Positive for leg swelling (chronic RLE). Negative for chest pain. Gastrointestinal: Negative for abdominal pain, diarrhea, nausea and vomiting. Stool softeners used daily And dulcolax as needed for constipation Endocrine: Negative for polydipsia, polyphagia and polyuria. Monitored 3-4 times a day, range of 102-273 with one reading of 321, this am was 250 Genitourinary: Negative for frequency, hematuria and urgency. Musculoskeletal: Positive for arthralgias, back pain and gait problem (ambs with a cane). Skin: Positive for wound (scabbed scratches to right arm from cat). Allergic/Immunologic: Positive for environmental allergies. Neurological: Positive for dizziness (occ with position changes) and numbness (neuropathy to fingers and feet). Negative for weakness and headaches. Hematological: Negative. Psychiatric/Behavioral: Depression Physical Exam: BP 112/58 (BP Site: Left Arm, BP Position: Sitting, BP Cuff Size: Regular) | Pulse 86 | Temp 36.5 C (97.7 F) (Tympanic) | Resp 18 | LMP 03/11/2003 | SpO2 98% Pain 3 Physical Exam Constitutional: Comments: Morbid obesity HENT: Head: Normocephalic. Mouth/Throat: Mouth: Mucous membranes are moist. Neck: Musculoskeletal: Normal range of motion. Cardiovascular: Rate and Rhythm: Normal rate. Pulses: Normal pulses. Pulmonary: Effort: Pulmonary effort is normal. Breath sounds: Normal breath sounds. Abdominal: General: Bowel sounds are normal. Palpations: Abdomen is soft. Musculoskeletal: General: Swelling (chronic RLE) present. Skin: General: Skin is warm and dry. Findings: Lesion (abrasions to RFA) present. Neurological: Mental Status: She is alert and oriented to person, place, and time. Mental status is at baseline. Psychiatric: Mood and Affect: Mood normal. Behavior: Behavior normal. Thought Content: Thought content normal. Judgment: Judgment normal. Treatment/Plan: Continue current medications as ordered Ambulate with roller walker O2 at 2 lpm at HS and pRN CPAP at hs Maintain adequate fluid intake at least 3 bottles of water a day Continue to monitor blood sugars TID Out Pt therapy at [facility] Change positions slowly Apap, tramadol and topical pain relievers for pain Can also take flexeril prn back pain No NSAIDS Home Interventions Provided: Reinforced current Plan of Care, including self-management and medication regimen Patient's 'Red Flags': 1. Wt gain of 2-3 # in 1 day or 5# in 1 week 2. Shortness of breath unrelieved with oxygen/rest 3. Increased falls or a fall with any injury 4. Fever/chills Patient Needs to Remember: Explained/reinforced role of registered nurse hh case manager. Encouraged to call with any issues or concerns. Gave direct phone number and contact information. Referrals Needed: Poss telepsych- CM to follow up Follow Up: Patient encouraged to call the intake phone number for all urgent but not emergent issues. Scheduled to follow up with patient tomorrow. Linda Wilkinson RN 10/24/2020 4:12 PM documented in this encounter Plan of Treatment Upcoming Encounters Date Type Specialty Care Team Description 10/25/2020 Scheduled Telephone [facility] Nurse [facility] [address] [place] [address] [phone] 10/26/2020 Scheduled Telephone [facility], Nurse [facility] [address] [place] [address] [phone] 10/27/2020 Office Visit Dermatology Apple Kaminski MD [address] [place] [address] [phone] 11/06/2020 Home Visit [facility] Vera Capellan RN [address] [place] [address] [phone] 11/11/2020 Home Visit [facility] Rema Real LSW [address] [place] [address] [phone] 11/13/2020 Office Visit Family Medicine Kevin Whiteside, [address] [place] [address] [phone] 11/19/2020 Office Visit Pharmacy [facility] [address] [place] [address] 01/08/2021 Office Visit Orthopedics Zack Teague, DO [address] [place] [address] [phone] 02/02/2021 Office Visit Cardiology Rey Woodall MD [address] [place] [address] [phone] 03/18/2021 Office Visit Nephrology Erik Lenz MD [address] [place] [address] [phone] 08/18/2021 Office Visit Pulmonary Celsa Tafoya CRNP [address] [place] [address] [phone] Health Maintenance Due Date Last Done Comments Zoster Vaccines (3 of 3) 01/02/2020 11/07/2019, 11/24 Pneumococcal Vaccine: 65+ Years (1 of 1 - PPSV23) 2020 08/22/2009, 06/15/2006 DIABETES-HGBA1C EVERY 6 MONTHS 07/24/2020 01/23/2020, 11/07/2019, 08/09/2019, Additional history exists CKD GFR USE SMARTSET 92250 11/06/202005/06, 03/13/2020, 03/07/2020, Additional history exists DIABETES-FOOT EXAM 11/07/2020 11/07/2019, 0 01/01/2019, 12/29/2017, Additional history exists CKD PHOS USE SMARTSET 98744 12/23/202011/26, 11/07/2019, 12/29/2017, Additional history exists DIABETES-URINE MICROALBUMIN EVERY 12 MONTHS 12/23/2020 12/24/2019, 11/30/2019, 05/24/2019, Additional history exists Yearly B-12 01/22/2021 01/23/2020, 02/24, 05/16/2018 DIABETES-EYE EXAM 04/07/2021 04/07/2020, , 02/24/2010 (Done elsewhere), Additional history exists CKD HGB USE SMARTSET 34644 05/06/202105/06, 03/13/2020, 11/30/2019, Additional history exists BREAST [...] Visit Diagnoses Diagnosis Abnormality of gait- Primary Primary osteoarthritis of both knees Primary localized osteoarthrosis, lower leg Moderate episode of recurrent major depressive disorder (HCC) 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
--- OUTSIDE RECORDS SUMMARY | 2023-06-01 05:14 | External Medical Summary | Summary of Care ---
Author Name Unknown Organization [place] [address] Care Team Providers Care Neuroscience Specialist Name Role Phone Kevin Whiteside DO Primary Care Provider Reason for Visit * Reason Onset Date Comments Acute 10/24/2020 Encounter Details Date Type Department Care Team Description 10/24/2020 Telephone [facility] [address] [place] [address] [facility], Nurse [facility] [address] [place] [address] [phone] Acute Allergies Active Allergy Reactions Severity Noted [...] Reported on 07/17/2020 Blood Glucose Monitoring Suppl (Taste FilterTOUCH ULTRA 2) w/Device KIT Use to test [...] MG TabletIndications:Chr onic diastolic congestive heart failure ([facility]) Take 2 Tabs by mouth daily. 180 Tab 3 05/28/2020 Active Additional Information Patient taking differently: 40 mg Oral BID, Reported on 06/13/2020 colchicine 0.6 MG TabletIndications:Jacobo kocytoclastic vasculitis ([facility]) Take 1/2 tab daily 45 Tab 1 [...] XL)Indications:Mild episode of recurrent major depressive disorder ([facility]) Take 1 Tab by mouth daily. 30 Tab 5 07/01/2020 Active NovoLOG FlexPen 100 UNIT/ML Subcutaneous Solution Pen-injector (insulin aspart)Indications:Ty pe 2 diabetes mellitus with hemoglobin A1c goal of 7.0%-8.0% ([facility]) Inject up to 30 units with meals [...] Maris Mariscal RN - 10/24/2020 2:44 PM [facility] dispensary clerk Acute Call Date: 10/24/2020 Time: 2:44 PM Name: Stephanie Camp : 1955 Caller: Magaly Morales CHA Relationship to pt: DAVID SALDA[place] No chief complaint on file. HPI: Stephanie Camp is a 65 year old female that is calling [facility] Intake to report SOB ands/s of dehydration Nursing Assessment: Patient's chief complaint for this call: DAVID SALDANA made home visit post ER visit. Pt [...] Acute Appointment scheduled for same day: Yes Safety Equipment Testing Specialist Provider Name: Linda Wilkinson RN Treatment plan until appointment: increase fluids Call back instructions provided to patient. documented in this encounter Plan of Treatment Upcoming Encounters Date Type Specialty Care Team Description 10/24/2020 Home Visit [facility] Linda Wilkinson RN [address] [facility] [place] [address] [phone] 10/25/2020 Scheduled Telephone [facility], Nurse [facility] [address] [place] [address] [phone] 10/26/2020 Scheduled Telephone [facility], Nurse [facility] [address] [place] [address] [phone] 10/27/2020 Office Visit Dermatology Apple Kaminski MD [address] [facility] [place] [address] [phone] 11/06/2020 Home Visit [facility] Vera Capellan RN [address] [place] [address] [phone] 11/11/2020 Home Visit [facility] Rema Real LSW [address] [place] [address] [phone] 11/13/2020 Office Visit Family Medicine Kevin Whiteside, [address] [place] [address] [phone] 11/19/2020 Office Visit Pharmacy [facility] [address] [place] [address] 01/08/2021 Office Visit Orthopedics Zack Teague, [address] [place] [address] [phone] 02/02/2021 Office Visit Cardiology Rey Woodall MD [address] [place] [address] [phone] 03/18/2021 Office Visit Nephrology Erik Lenz MD [address] [facility] [place] [address] [phone] 08/18/2021 Office Visit Pulmonary Celsa Tafoya, [place] [address] [place] [address] [phone] Health Maintenance Due Date Last Done Comments Zoster Vaccines (3 of 3) 01/02/2020 11/07/2019, 11/24 Pneumococcal Vaccine: 65+ Years (1 of 1 - PPSV23) 2020 08/22/2009, 06/15/2006 DIABETES-HGBA1C EVERY 6 MONTHS 07/24/2020 01/23/2020, 11/07/2019, 08/09/2019, Additional history exists CKD GFR USE SMARTSET 96861 11/06/202005/06, 03/13/2020, 03/07/2020, Additional history exists DIABETES-FOOT EXAM 11/07/2020 11/07/2019, 0 01/01/2019, 12/29/2017, Additional history exists CKD PHOS USE SMARTSET 51905 12/23/2020/, 11/07/2019, 12/29/2017, Additional history exists DIABETES-URINE MICROALBUMIN EVERY 12 MONTHS 12/23/2020 12/24/2019, 11/30/2019, 05/24/2019, Additional history exists Yearly B-12 01/22/2021 01/23/2020, 02/24, 05/16/2018 DIABETES-EYE EXAM 04/07/2021 04/07/2020, , 02/24/2010 (Done elsewhere), Additional history exists CKD HGB USE SMARTSET 19792 05/06/202105/06, 03/13/2020, 11/30/2019, Additional history exists BREAST [...] Documents on File Type Date Recorded Patient Safe And Vault Service Mechanic Expl 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
--- OUTSIDE RECORDS SUMMARY | 2023-06-01 05:14 | External Medical Summary | Summary of Care ---
Author Name Unknown Organization [facility] [address] Care Team Providers Care Pattern Changer And Repairer Name Role Phone Stevo Kevin Ocampomelinda Primary Care Provider Reason for Visit * Reason Comments [facility]: Telehealth behavioral health consult Encounter Details Date Type Department Care Team Description 11/04/2020 Telemedicine [facility], [place] [address] [place] [id number] Migdalia Goldstein DO [address], [place] [id number] Magaly Morales, [facility] Support Specialist [address] [place] [address] [phone] Major depressive disorder, recurrent episode, moderate with anxious distress (HCC)* Allergies Active Allergy Reactions Severity Noted Date Comments Codeine 07/08/2014 hallucination Pollen 05/18/2019 Heparin 09/04/2009 Heparin Induced Thrombocytopenia Hydrocodone Neuro complications (Please comment) 07/28/2020 Empagliflozin Other (Please comment) Medium 05/17/2018 3 yeast infections in 6 weeks after starting Morphine And Related 09/16/1997 Hallucinations Tetanus Toxoid Other (Please comment) 06/15/2011 Passed out documented as of this encounter (statuses as of 11/04/2020) Medications Medication Sig Dispensed Refills Start Date [...] A1c goal of 7.0%-8.0% ([facility]) TAKE ONE CAPSULE BY MOUTH THREE TIMES DAILY 270 Cap 0 05/20/2020 Active Additional Information Patient taking differently: 300 mg Oral TID, Taking 300mg in am and 600mg in pm, Reported on 07/17/2020 Blood Glucose Monitoring Suppl (AirInSpaceTOUCH ULTRA 2) w/Device KIT Use to test BG values 1 Kit 0 05/20/2020 Active Glucose Blood (ONETOUCH ULTRA BLUE) STRP Check sugars 3-4 times daily, E11.9 400 Strip 3 05/22/2020 Active TRULICITY 1.5 MG/0.5ML SOPNIndications:DM type 2 nursing care encounter ([facility]),Uncontrolled type 2 diabetes mellitus with stage 3 chronic kidney disease, with long-term current use of insulin ([facility]) inject 1.5mg (one pen) under the skin once weekly 6 mL 1 05/27/2020 Active furosemide (LASIX) 40 MG TabletIndications:Chr onic diastolic congestive heart failure ([facility]) Take 2 Tabs by mouth daily. 180 Tab 3 05/28/2020 Active Additional Information Patient taking differently: 40 mg Oral BID, Reported on 06/13/2020 colchicine 0.6 MG TabletIndications:Jacobo kocytoclastic vasculitis ([facility]) Take 1/2 tab daily 45 [...] XL)Indications:Mild episode of recurrent major depressive disorder ([facility]) Take 1 Tab by mouth daily. 30 Tab 5 07/01/2020 Active NovoLOG FlexPen 100 UNIT/ML Subcutaneous Solution Pen-injector (insulin aspart)Indications:Ty pe 2 diabetes mellitus with hemoglobin A1c goal of 7.0%-8.0% ([facility]) Inject up to 30 units [...] as of this encounter (statuses as of 11/04/2020) Active Problems Problem Noted Date Spinal stenosis [...] 10/14/2014 Overview: ICD-10 update of inactive term Tutor Key filter in place 08/19/2014 History of pulmonary embolus (PE) 2013 Statin intolerance 07/16/2014 HTN, goal below 130/80 02/22/2014 Venous insufficiency 02/07/2013 ELISSA (obstructive sleep apnea) 09/16/2011 Overview: CPAP 11 cwp Mild, AHI 11.3 but with significant nocturnal hypoxemia Dicks Postsurgical hypothyroidism 06/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 documented as of this encounter (statuses as of 11/04/2020) Resolved Problems Problem Noted Date Resolved Date [...] 84%, low 76%, time <89% 6:21 hours, ITNY 47 DHC Nontoxic uninodular goiter 06/16/201108/17 Body [...] as of this encounter (statuses as of 11/04/2020) Immunizations Name Administration Dates Next Due Pneumococcal [...] as of this encounter Progress Notes * Jessica Rios, [facility] Support Specialist - 11/04/2020 2:01 PM EST Visit with Telehealth this date. Vitals as follows: BP 100/60 (BP Site: Right Arm, BP Position: Sitting) | Pulse 82 | Temp 36.4 C (97.5 F) | Resp 20 | LMP 03/11/2003 | SpO2 92% SpO2 fluctuated between 87-92. Pt sitting at edge of chair during first reading. Encouraged pt to sit back in chair. SpO2 improved. Offered to help pt supervisor sandblaster to O2 (uses @ HS), which she resisted atfirst. Eventually agreed to O2 @3LPM via NC. SpO2 maintained. Pt states the reason she doesn't wearO2 during the day is because of her cats going after the tubing. Recheck of BP remained the same. Per pt, she has only had two cups of coffee today, and no water. Encouraged pt to drink water. Left two bottles on bedside table. Pt drinking at end of visit. * Migdalia Goldstein DO - 11/04/2020 1:21 PM EST Outpatient Psychiatry Consultation - [facility] [place] Patient presented for initial evaluation. The limits of confidentiality, the consultative nature ofthe first visit, and the fact that information from the visit would be documented in the electronicrecord accessible by care providers across the system were explicitly reviewed. I was not in a hospital or clinic location. After connecting through televideo, patient was verified with two unique identifiers. Patient (or authorized legal representative personal service) was then informed that this was a Telemedicine visit and being conducted confidentially over secure lines. Methods to assureconfidentiality were taken. Patient acknowledged consent and understanding of privacy and security of the Telemedicine visit. The patient agreed to participate. CONSULTING PROVIDER: Linda Wilkinson RN, [facility] [place] CHIEF COMPLAINT: Depression evaluation HISTORY OF PRESENT ILLNESS:: Stephanie Camp is a 65 yo single female with a past psychiatric history significant for depression and anxiety who is seen today for one-time consultation at the request of her [facility] team for evaluation of depression. She reports a nearly 12 month history of sadness, decreased interest in activities, poor motivation- not wanting to get out of bed, fatigue, decreased appetite, and difficulty controlling worried thoughts. Stressors include not being able to see her family often due to COVID pandemic, living with chronic pain due to fibromyalgia, and dealing with other health ailments. She has experienced one ortwo past depressive episodes which previously resolved with medication. Her PCP manages her antidepressant medication as she has never worked with an outpatient psychiatrist nor therapist before. Now[facility] she is getting monthly supportive visits with the [facility] and findsthat helpful. Pain seems to make her depressive symptoms flair and she notes, "I am tired of hurting". She denies SI/plan/intent and identifies her supportive family as a protective factor. CURRENT STRESSORS: Chronic pain Not seeing family due to COVID pandemic Now retired with little daytime activity PAST PSYCHIATRIC HISTORY: PREVIOUS PSYCHIATRIC DIAGNOSES AND SYMPTOMS: first episode of depression occurred about 20 years ago when her father , current depressive episode has been going on for nearly a year since COVID pandemic first started; she reports a longstanding history of anxiety since a prolonged medical hospitalization in 2008 for pneumonia, respiratory failure, and blood clot PREVIOUS MEDICATION TRIALS: Zoloft ("it was ok") a couple years ago, Klonopin for the past several years, Cymbalta, Wellbutrin, Trazodone; States she takes Pamelor for management of leg pain/restlesslegs PREVIOUS PSYCHIATRIC HOSPITALIZATIONS: none PREVIOUS SUICIDE ATTEMPTS: no PREVIOUS SELF INJURY: no TOBACCO USE- former smoker but quit ALCOHOL ASSESSMENT: occasional glass of wine with dinner or on a social basis 1. How often do you have a drink containing alcohol? Two to four times a month (2) 2. How many drinks containing alcohol do you have on a typical day when you are drinking? 1 or 2 (0) 3. How often do you have six or more drinks on one occasion? Never (0) TOTAL SCORE: Add the number for each question to get your total score. 2 Maximum score is 12. Intervention Needed: No intervention needed. ILLICIT DRUG USE: no CURRENT MEDICATIONS: Current Outpatient Medications Medication Sig Dispense Refill clonazePAM 0.5 MG Oral Tablet (KlonoPIN) TAKE ONE TABLET BY MOUTH TWICE DAILY 60 Tab 0 DULoxetine HCl 30 MG Oral Capsule Delayed Release Particles (CYMBALTA) TAKE ONE CAPSULE BY MOUTH DAILY. take with 60mg capsule for total of 90mg 90 Cap 1 DULoxetine HCl 60 MG Oral Capsule Delayed Release Particles (CYMBALTA) Take 1 Cap by mouth daily. Along with 30 mg capsule to total 90 mg daily. 90 Cap 3 traMADol HCl 50 MG Oral Tablet (ULTRAM) Take 1 Tab by mouth every 8 hours as needed for Pain, Severe. 90 Tab 0 Nortriptyline HCl 50 MG Oral Capsule (PAMELOR) [...] breakfast or other meds) 90 Tab 1 Cyclobenzaprine HCl 10 MG Oral Tablet (FLEXERIL) TAKE ONE TABLET BY MOUTH AT BEDTIME NEEDED FOR SPASM 30 Tab 0 Doxycycline Hyclate 100 MG Oral Capsule Take 100 mg by mouth 2 times a day. First-Mouthwash BLM Mouth/Throat Suspension Swish and spit 30 mL 4 times a day. 237 mL 1 Magnesium Oxide 400 (241.3 Mg) MG Oral Tablet Take 400 mg by mouth daily. 90 Tab 0 Vitamin D 25 MCG (1000 UT) Oral Tablet Take 1 Tab by mouth daily. 1 Tab 0 buPROPion HCl ER (XL) 150 MG Oral Tablet Extended Release 24 Hour (Wellbutrin XL) Take 1 Tab by mouth daily. 30 Tab 5 NovoLOG FlexPen 100 UNIT/ML Subcutaneous Solution Pen-injector (insulin aspart) Inject up to 30 units with meals plus sliding scale as directed by diabetes clinic 81 mL 3 BD Pen Needle Short U/F 31G X 8 MM (Insulin Pen Needle) Use 5 times daily with insulin 200 Each 11 Tresiba FlexTouch 100 UNIT/ML Subcutaneous Solution Pen-injector (Insulin Degludec) Inject 50 Unitsunder the skin daily. 45 mL 3 clobetasol propionate (TEMOVATE) 0.05 % cream Apply to rash on the hands and dorsal feet twice daily x 1 week, then as needed for flares. 30 g 1 colchicine 0.6 MG Tablet Take 1/2 tab daily 45 Tab 1 furosemide (LASIX) 40 MG Tablet Take 2 Tabs by mouth daily. (Patient taking differently: Take 40 mgby mouth 2 times a day.) 180 Tab 3 TRULICITY 1.5 MG/0.5ML SOPN inject 1.5mg (one pen) under the skin once weekly 6 mL 1 Glucose Blood (AirInSpaceTOUCH ULTRA BLUE) STRP Check sugars 3-4 times daily, E11.9 400 Strip 3 Blood Glucose Monitoring Suppl (ONETOUCH ULTRA 2) w/Device KIT Use to test BG values 1 Kit 0 gabapentin (NEURONTIN) 300 MG Capsule TAKE ONE CAPSULE BY MOUTH THREE TIMES DAILY (Patient taking differently: Take 300 mg by mouth 3 times a day. Taking 300mg in am and 600mg in pm) 270 Cap 0 zoster vac recomb adjuvanted (SHINGRIX) 50 [...] contact heart failure managing provider. 1 Each0 metoprolol tartrate (LOPRESSOR) 25 MG Tablet Take [...] times a day as needed for Constipation. ADHERENCE TO CURRENT MEDICATIONS yes Uses Tramadol on average once per day, usually at night ALLERGIES: Review of patient's allergies indicates: Allergen Reactions Jardiance [Empagliflozin] Other (Please comment) 3 yeast infections in 6 weeks after starting Codeine hallucination Hay Fever [Pollen] Heparin Heparin Induced Thrombocytopenia Hydrocodone Neuro complications (Please comment) Morphine And Related Hallucinations Tetanus Toxoid Other (Please comment) Passed out PMH: Past Medical History: Diagnosis Date ELSIE (acute kidney injury) ([facility]) 06/12/2018 Allergic rhinitis due to other allergen Backache Diverticulosis of colon 01/28/06 DM type 2, not at goal ([facility]) ELLIE (generalized anxiety disorder) 09/13/2009 Goiter Tutor Key filter in place 08/19/2014 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[facility]) 08/22/2009 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[facility]) 06/12/2018 History of pulmonary embolus (PE) 07/16/2014 HTN, goal below 140/90 Impetigo 09/27/2018 Obesity, BMI not known Perforation of intestine ([facility]) 1996 COLON -- 1996 Pneumonia in aspergillosis(484.6) 09/14/2009 Spinal stenosis of lumbar region without neurogenic claudication 07/15/2020 Spontaneous pneumothorax 09/14/2009 Statin intolerance 07/16/2014 Type 2 diabetes mellitus with hemoglobin A1c goal of 7.0%-8.0% ([facility]) 10/14/2014 ICD-10 update of inactive term Vaginal karmen 07/13/2018 FAMILY HISTORY: MENTAL ILLNESS a niece with bipolar disorder SUICIDE ATTEMPTS no DRUG AND ALCOHOL no SOCIAL HISTORY CURRENT LIVING SITUATION alone SIBLINGS yes - one brother still living, they are close ABUSE/NEGLECT no HISTORY no EDUCATIONAL HISTORY high school OCCUPATIONAL HISTORY 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; 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 [employer], no children PERTINENT PE/LAB/IMAGING FINDINGS: Reviewed in [facility] MEDICAL RECORDS REVIEW Reviewed in [facility] PHYSICAL ROS Constitutional: + fatigue, no malaise, no sweats, no fevers, + pain Cardiovascular: normal, no pain, palpitations Pulmonary: + AVENDAÑO - uses oxygen with exertion and at night, no SOB Abdominal/GI: normal, no pain, no constipation, no diarrhea, no change in habits, no blood in stools : normal, no sexual complaints, no urinary issues Musculoskeletal: + back pain, + knee pain, + stiffness, no swelling Endocrine: + hyperglycemia Neurology: + lower extremity weakness, no dizziness, no tics, no tremors, no headache SIGECAPS- Sleep: sleeps well with use of Trazodone, compliant with CPAP; denies difficulty falling/staying asleep Interest: low, lacks motivation, has lost interest in crafting which she use to enjoy Guilt: mild Energy: low, fatigued Concentration: fair Appetite: low, denies weight changes Psychomotor: psychomotor slowing Suicide: denies SI/plan/intent Homicide: denies PSYCHIATRIC REVIEW OF SYMPTOMS: Depression: yes Temitope: no Anxiety: yes Psychosis: no Trauma: no Eating Disorder: no Personality: no Manic Episode A. Elevated/expansive/irritable mood 1+ week no B. During mood disturbance, 3+ of followin) inflated self-esteem/grandiosity no 2) decreased need for sleep no 3) pressured speech no 4) flight of ideas/racing thoughts no 5) distractibility no 6) increase in activity or agitation no 7) excessive in pleasurable activities with - consequences no Risk and Protective Factors for Suicide: Risk factors: Suicidal: Denies and Able to contract to no self harm Previous suicide attempts:no previous attempts Access to means:multiple medications are in the house Substance use:Alcohol occasional, social use Psychotic symptoms:None observed and Denied by patient Anxiety:Yes Family history of suicide:No Major physical illness:Yes Recent losses or change in socio economic status:No Protective Factors: Easy access to clinical interventions: Yes - [facility] team, PCP, [facility] Family and community support: Yes - brother, a neighbor she is friendly with Skills in problem solving, conflict resolution and distress tolerance: Yes Cultural and christianity beliefs that discourage suicide and support hopefulness: Yes Based on these risk and protective factors, this patient's imminent suicide risk is assessed to be low, but will continue to be evaluated and monitored MENTAL STATUS EVALUATION: Appearance: age-appropriate, casually dressed, overweight and appropriately dressed/groomed Behavior: occasionally tearful, cooperative and pleasant Speech: goal directed, normal rate and normal volume Mood: depressed Affect: constricted Thought Process: within normal limits and goal directed Thought Content: Delusions: No Hallucinations: No Obsessions: No Homicidal: No Suicidal: No Sensorium: alert Cognition: grossly intact Insight: fair Judgment: fair ASSESSMENT/ DIFFERENTIAL DIAGNOSIS Major depressive disorder, recurrent, moderate with anxious distress RECOMMENDATIONS 1. RX- Pharmacotherapy options for management of depression reviewed with patient today. She does not wish to see psychiatry and plans to continue working with her PCP for medication. She is on a number of serotonergic medications - discussed risk of serotonin syndrome, she currently has no symptoms of such. Given that she is sleeping well, suggested that she use Trazodone on a PRN basis rather than every night. With respect to antidepressants, consider increase Wellbutrin XL to 300 mg daily assuch can target neurovegetative symptoms of depression which she is endorsing. Side effects of the medication were explained, and the patient understands the risks and benefits of using the medication. Patient cautioned not to drive, operate heavy machinery, or participate in other tasks requiring full cognitive alertness until they know how new medications will affect them. 2. Referral-recommend psychotherapy to increase insight and develop positive coping skills - she declines referral at this time but is open to continuing to work with Rema BHANDARI of [facility] and continuing to consider therapy options in the future with her 3. Health Maintenance- Pt was encouraged to keep up to date on regular health maintenance per her primary care provider. Encouraged to keep active in productive hobbies and exercise. This helps manage emotions, improve sleep, wellbeing and overall health. Pt was cautioned to not drink alcohol or use illicit drugs as these can make depression worse by blocking the effects of prescribed medications. Avoid tobacco, which contains nicotine. Limit caffeine use. Caffeine and Nicotine are stimulants that can cause difficulty with sleep. Lack of sleep can then worsen anxiety and depression. 4. Return- None scheduled as she is not interested in following with psychiatry, and we discussed my upcoming departure from [facility]. She plans to continue to see her PCP for medication. Staff message with recommendations sent to PCP and [facility] team for review 5. Pt was instructed, If she becomes suicidal, homicidal, or her emotional condition were to worsenshe should go to nearest Emergency Room or call National Suicide Prevention Hotline ,or [facility] at . Migdalia Goldstein DO Department of Psychiatry [facility] (Electronically Signed.) documented in this encounter Plan of Treatment Upcoming Encounters Date Type Specialty Care Team Description 11/06/2020 Home Visit [facility] [place] Vera Capellan RN [address] [place] [address] [phone] 11/11/2020 Home Visit [facility] Rema Real LSW [address] [place] [address] [phone] 11/13/2020 Office Visit Family Medicine Kevin Whiteside, DO [address] [place] [address] [phone] 11/19/2020 Office Visit Pharmacy [facility] [address] [place] [address] 01/08/2021 Office Visit Orthopedics Zack Teague, DO [address] [place] [address] [phone] 02/02/2021 Office Visit Cardiology Rey Woodall MD [address] [place] [address] [phone] 03/18/2021 Office Visit Nephrology Erik Lenz MD [address] [place] [address], [place] [address] [phone] 08/18/2021 Office Visit Pulmonary Celsa Tafoya CRNP [address] [place] [address] [phone] Health Maintenance Due Date Last Done Comments Zoster Vaccines (3 of 3) 01/02/2020 11/07/2019, 11/24 Pneumococcal Vaccine: 65+ Years (1 of 1 - PPSV23) 2020 08/22/2009, 06/15/2006 DIABETES-HGBA1C EVERY 6 MONTHS 07/24/2020 01/23/2020, 11/07/2019, 08/09/2019, Additional history exists CKD GFR USE SMARTSET 40403 11/06/202005/06, 03/13/2020, 03/07/2020, Additional history exists DIABETES-FOOT EXAM 11/07/2020 11/07/2019, 0 01/01/2019, 12/29/2017, Additional history exists CKD PHOS USE SMARTSET 19681 12/23/2020 03/3 , 11/07/2019, 12/29/2017, Additional history exists DIABETES-URINE MICROALBUMIN EVERY 12 MONTHS 12/23/2020 12/24/2019, 11/30/2019, 05/24/2019, Additional history exists Yearly B-12 01/22/2021 01/23/2020, 02/24, 05/16/2018 DIABETES-EYE EXAM 04/07/2021 04/07/2020, , 02/24/2010 (Done elsewhere), Additional history exists CKD HGB USE SMARTSET 67296 05/06/202105/06, 03/13/2020, 11/30/2019, Additional history exists BREAST [...] as of this encounter Visit Diagnoses Diagnosis Major depressive disorder, recurrent episode, moderate with anxious distress (HCC)- Primary documented in this encounter Advance Directives Documents on File Type Date Recorded 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
--- OUTSIDE RECORDS SUMMARY | 2023-06-01 05:14 | External Medical Summary | Summary of Care ---
Author Name Unknown Organization [place] [address] Care Team Providers Care Wet Crown Blocking Operator Name Role Phone Stevo Kevin Ocampomelinda Primary Care Provider Encounter Details Date Type Department Care Team Description 10/24/2020 Home Visit Care Coordination [address] [place] [address] Mgaaly Morales, Community Health Bog Worker [address], [place] [id number] Allergies Active Allergy Reactions Severity Noted Date [...] Reported on 07/17/2020 Blood Glucose Monitoring Suppl (BetterLesson ULTRA 2) w/Device KIT Use to test BG values 1 Kit 0 05/20/2020 Active Glucose Blood (ONETOUCH ULTRA BLUE) STRP Check sugars 3-4 times daily, E11.9 400 Strip 3 05/22/2020 Active TRULICITY 1.5 MG/0.5ML SOPNIndications:DM type 2 nursing care encounter (HCC),Uncontrolled type 2 diabetes mellitus with stage 3 chronic kidney disease, with long-term current use of insulin ([facility]) inject 1.5mg (one pen) under [...] XL)Indications:Mild episode of recurrent major depressive disorder ([facility]) Take 1 Tab by mouth [...] 10/14/2014 Overview: ICD-10 update of inactive term [place] filter in place 08/19/2014 History of pulmonary [...] Reading Time Taken Comments Blood Pressure 90/50 10/24/2020 2:00 PM EST recheck: 90/60 Pulse 91 10/24/2020 2:00 PM EST Temperature 36.4 C (97.5 F) 10/24/2020 2 :00 PM EST Respiratory Rate 18 10/24/2020 2:00 PM EST Oxygen Saturation 77% 10/24/2020 2:0 0 PM EST SpO2 vascilated during visit. Increaseed to 90-93 on O2 @3LP Inhaled Oxygen Concentration - - Weight - - Height - - Body Mass Index - - documented in this encounter Progress Notes * Jessica Rios, Community Health Bog Worker - 10/24/2020 1:48 PM EST Community Health Bog Worker Visit Date: 10/24/2020 Time: 1:48 PM Name: Stephanie Camp : 1955 Source of Information: Patient COVID-19 screening completed: Yes Vitals: Vital signs completed: Yes, abnormal values, escalated to nurse/provider: SpO2 and BP abnormal BP 90/50 Comment: recheck: 90/60 | Pulse 91 | Temp 36.4 C (97.5 F) | Resp 18 | LMP 03/11/2003 |SpO2 77% Comment: SpO2 vascilated during visit. Increaseed to 90-93 on O2 @3LPM Condition Changes: Changes in health or social status since last visit: Fall at aprox 7am today. [facility] and presented to [facility] ED. Pt states multiple bruises, but no fx. Fell in hallway between bed/bath. Had to crawo living area to get cell phone. Pt statres she has had about 3 fall sin the last 3 mons. "legs give out on me". Discussed star alert. Pt agreeable and would like LES to complete referral.Would likeGPS enabled. Pt states she is attending PT 3 days/wk, and feel her strength is improving. The patient has new concerns since last visit: Yes, increased depressive s/sx noted. New RX wellbutrin - pt doesn't feel it is effective. States she has a lack of interest in things she normally enjoys, sleeping more, eating less. Friend lives across the [place], and can come over to help, if needed. Progress towards goals since last visit: Was working with CM to have insulin prices lowered. Accomplished. Medications: Medication review completed? No, -- MD at ED recommends pt to take 1000mg tylenol and colace BID d/t ongoing pain med use. Also states she is experiencing dry mouth, and has a "bad taste" in her mouth. Does the patient have barriers to medication adherence? - recommended using [facility] for discounts on meds, if needed. Goes to [facility] in [place]. Has no issues with affording current meds. Telehealth: This is a telehealth visit: No Symptoms Surveys and Evaluations: MAURICE completed this visit: Yes Last flowsheet values for MAURICE: Age 65+: 0 (03/24/2020 3:00 PM) Diagnosis (3 or more co-existing): 0 (03/24/2020 3:00 PM) Prior history of falls within 3 months: 1 (10/24/2020 2:00 PM) Incontinence: 1 (03/24/2020 3:00 PM) Visual impairment: 0 (03/24/2020 3:00 PM) Impaired functional mobility: 1 (03/24/2020 3:00 PM) Environmental hazards: 1 (03/24/2020 3:00 PM) Poly Pharmacy (4 or more prescriptions - any type): 1 (03/24/2020 3:00 PM) Pain affecting level of function: 1 (03/24/2020 3:00 PM) Cognitive impairment: 0 (03/24/2020 3:00 PM) Score - a score of 4 or more is considered at risk for fallin (03/24/2020 3:00 PM) Home Safety ? Overall assessment: o The patient has concerns related to housing: No ? Exterior to the home: o Able to enter and exit the home safely Yes ? The steps are even and in good repair: N/A ? A wheelchair ramp to access the home is needed: N/A o Snow/ice removal assistance available: Yes o Sidewalks are in good repair: Yes o Adequate lighting: Yes o Railings are on outdoor stairs: N/A ? Interior of the home: o If durable medical equipment is used, halls and doorways easy to navigate: No o There are trip hazards in the home: Yes - ? two cats. Home is very cluttered. Multiple trip hazards. Pt fell this AM "landed on something soft". Help with housekeeping would be beneficial - agreeable to help if she qualifies. Initiate waiverapplication process. ? Transition ramps available: N/A o There are working smoke detectors/CO2 detectors: Yes o There are signs of rodent/insect infestation: No o The house is heated by: oil ? The heat system works (adequately heats the entire house): Yes o Able to open doors without difficulty: Yes o The doorways have levered knobs: Yes o The entry and exit doorways close correctly and lock: Yes o Lighting is adequate: Yes o Air quality concern that affects a health condition ? Needs air conditioner or Air purifier: No o Secure railing in stairways in the home: Yes ? Bathroom: o Grab bars are needed: Yes o The patient reports needing help getting on and off the toilet: No o Needs help bathing: No ? Has a walk in shower: No ? Bedroom: o There is a medical alert or phone near the bed: No o The walkway between the bedroom and bathroom is well lit: Yes ? Kitchen/Bathroom o Able to turn water on and off: Yes ? (Regular knobs or levered knobs) Yes Plan: Notified Provider/Director Of Testingpattern changer in condition Follow Up: Pt AOx3 at time of visit. Pt states she had just returned home from ED s/p fall this AM. During interview portion of visit, pt appeared to be mildly SOB, continued to talk and answer questions appropriately. Vitals check revealed SpO2 in the 70-80s. resp even and unlabored. Pt uses O2 @HS via CPAP.NC applied to concentrator and placed on pt. SpO2 began to improve immediately to 90+. Intake notified immediately of pt's condition via Collactive connect. Intake nurse talked with LES and pt over phone.Intake nurse instructed pt to drink water and wear O2 until RN arrived to assess her. Patient encouraged to call the intake phone number for all urgent but not emergent issues. Scheduled to follow up with patient in - RN to complete in-person assessment of pt today. Lisa Guillen 10/24/2020 1:48 PM documented in this encounter Plan of Treatment Upcoming Encounters Date Type Specialty Care Team Description 10/24/2020 Home Visit [facility] Linda Wilkinson RN [address] [address] [phone] 10/25/2020 Scheduled Telephone [facility] Nurse Virginia Curiel [facility] [address] [address] [phone] 10/26/2020 Scheduled Telephone [facility] Veena, Nurse Virginia Hale [address] [facility] [place] [address] [phone] 10/27/2020 Office Visit Dermatology Apple Kaminski MD [address] [place] [address] [phone] 11/06/2020 Home Visit [facility] Vera Capellan, RN [address] [facility] [place] [address] [phone] 11/11/2020 Home Visit [facility] Rema Real LSW [address] [facility] [place] [address] [phone] 11/13/2020 Office Visit Family Medicine Kevin Whiteside, [address] [facility] [place] [address] [phone] 11/19/2020 Office Visit [facility]acy [facility] [address] [facility] [place] [address] 01/08/2021 Office Visit Orthopedics Zack Teague, [address] [facility] [place] [address] [phone] 02/02/2021 Office Visit Cardiology Rey Woodall MD [address] [facility] [place] [address] [phone] 03/18/2021 Office Visit Nephrology Erik Lenz MD [address] [place] [address] [phone] 08/18/2021 Office Visit Pulmonary Celsa Tafoya CRNP [address] [facility] [place] [address] [phone] Health Maintenance Due Date Last Done Comments Zoster Vaccines (3 of 3) 01/02/2020 11/07/2019, 11/24 Pneumococcal Vaccine: 65+ Years (1 of 1 - PPSV23) 2020 08/22/2009, 06/15/2006 DIABETES-HGBA1C EVERY 6 MONTHS 07/24/2020 01/23/2020, 11/07/2019, 08/09/2019, Additional history exists CKD GFR USE SMARTSET 39126 11/06/202005/06, 03/13/2020, 03/07/2020, Additional history exists DIABETES-FOOT EXAM 11/07/2020 11/07/2019, 0 01/01/2019, 12/29/2017, Additional history exists CKD PHOS USE SMARTSET 11315 12/23/2020 03/, 11/07/2019, 12/29/2017, Additional history exists DIABETES-URINE MICROALBUMIN EVERY 12 MONTHS 12/23/2020 12/24/2019, 11/30/2019, 05/24/2019, Additional history exists Yearly B-12 01/22/2021 01/23/2020, 02/24, 05/16/2018 DIABETES-EYE EXAM 04/07/2021 04/07/2020, , 02/24/2010 (Done elsewhere), Additional history exists CKD HGB USE SMARTSET 94302 05/06/202105/06, 03/13/2020, 11/30/2019, Additional history exists BREAST [...] Documents on File Type Date Recorded Patient Lime Boiler Expl 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
--- OUTSIDE RECORDS SUMMARY | 2023-06-01 05:14 | External Medical Summary | Summary of Care ---
Author Name Unknown Organization [place] [address] Care Team Providers Care President Celebrity Acquistion Name Role Phone Kevin Whitesidemelinda Primary Care Provider Reason for Visit * Reason Onset Date Comments [facility]: Maintenance 10/25/2020 2 4 hr f/u TC Encounter Details Date Type Department Care Team Description 10/25/2020 Scheduled Telephone [facility], [facility] [address] [facility] [place] [address] [facility], Nurse [facility] [address] [facility] [place] [address] [phone] Allergies Active Allergy Reactions Severity Noted Date Comments Codeine 07/08/2014 hallucination Pollen 05/18/2019 Heparin 09/04/2009 Heparin Induced Thrombocytopenia Hydrocodone Neuro complications (Please comment) 07/28/2020 Empagliflozin Other (Please comment) Medium 05/17/2018 3 yeast infections in 6 weeks after starting Morphine And Related 09/16/1997 Hallucinations Tetanus Toxoid Other (Please comment) 06/15/2011 Passed out documented as of this encounter (statuses as of 10/25/2020) Medications Medication Sig Dispensed Refills Start Date [...] Reported on 07/17/2020 Blood Glucose Monitoring Suppl (lensgenTOUCH ULTRA 2) w/Device KIT Use to test [...] MG TabletIndications:Chr onic diastolic congestive heart failure ([facility]) Take 2 Tabs by mouth daily. 180 Tab 3 05/28/2020 Active Additional Information Patient taking differently: 40 mg Oral BID, Reported on 06/13/2020 colchicine 0.6 MG TabletIndications:Jacobo kocytoclastic vasculitis ([facility]) Take 1/2 tab daily 45 Tab 1 [...] XL)Indications:Mild episode of recurrent major depressive disorder ([facility]) Take 1 Tab by mouth daily. 30 Tab 5 07/01/2020 Active NovoLOG FlexPen 100 UNIT/ML Subcutaneous Solution Pen-injector (insulin aspart)Indications:Ty pe 2 diabetes mellitus with hemoglobin A1c goal of 7.0%-8.0% ([facility]) Inject up to 30 units with meals [...] as of this encounter (statuses as of 10/25/2020) Active Problems Problem Noted Date Spinal stenosis [...] 10/14/2014 Overview: ICD-10 update of inactive term [place] filter in place 08/19/2014 History of pulmonary embolus (PE) 2013 Statin intolerance 07/16/2014 HTN, goal below 130/80 02/22/2014 Venous insufficiency 02/07/2013 ELISSA (obstructive sleep apnea) 09/16/2011 Overview: CPAP 11 cwp Mild, AHI 11.3 but with significant nocturnal hypoxemia Dicks Postsurgical hypothyroidism 06/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 documented as of this encounter (statuses as of 10/25/2020) Resolved Problems Problem Noted Date Resolved Date [...] as of this encounter (statuses as of 10/25/2020) Immunizations Name Administration Dates Next Due Pneumococcal [...] encounter Miscellaneous Notes * Telephone Encounter - Kriss Ferris RN - 10/25/2020 9:37 AM EST 24hr acute visit f/u TC: Spoke to Stephanie 1/29 pt had a fall, used ED for eval, then acute visit made by RN Currently denies any new falls, reports soreness to "entire body" from the fall yesterday- brother picking up pain medication from pharmacy today for pt On 2lo2 via NC Uses walker or cane for activity Plans to drink 3 bottles of water/ day: Thus far today pt had 1/2 Bottle water, and coffee Denies dizziness Monitors bsg TID- today am fasting 227 Verbalizes understanding to call [facility] if any needs, concerns, Red Flags arise documented in this encounter Plan of Treatment Upcoming Encounters Date Type Specialty Care Team Description 10/26/2020 Scheduled Telephone [facility] Veena, Nurse Virginia Hale [address] [address] [phone] 10/27/2020 Office Visit Dermatology Apple Kaminski MD [address] [place] [address] [phone] 11/06/2020 Home Visit [facility] Vera Capellan RN [address] [address] [phone] 11/11/2020 Home Visit [facility] Rema Real LSW [address] [address] [phone] 11/13/2020 Office Visit Family Medicine Kevin Whiteside, [address] [address] [phone] 11/19/2020 Office Visit Pharmacy Danuta Ordaz [address] [address] 01/08/2021 Office Visit Orthopedics Zack Teague, [address] [address] [phone] 02/02/2021 Office Visit Cardiology Rey Woodall MD [address] [address] [phone] 03/18/2021 Office Visit Nephrology Erik Lenz MD [address] [place] [address] [phone] 08/18/2021 Office Visit Pulmonary Celsa Tafoya CRNP [address] [address] [phone] Health Maintenance Due Date Last Done Comments Zoster Vaccines (3 of 3) 01/02/2020 11/07/2019, 11/24 Pneumococcal Vaccine: 65+ Years (1 of 1 - PPSV23) 2020 08/22/2009, 06/15/2006 DIABETES-HGBA1C EVERY 6 MONTHS 07/24/2020 01/23/2020, 11/07/2019, 08/09/2019, Additional history exists CKD GFR USE SMARTSET 19417 11/06/202005/06, 03/13/2020, 03/07/2020, Additional history exists DIABETES-FOOT EXAM 11/07/2020 11/07/2019, 0 01/01/2019, 12/29/2017, Additional history exists CKD PHOS USE SMARTSET 81775 12/23/2020 03/3 , 11/07/2019, 12/29/2017, Additional history exists DIABETES-URINE MICROALBUMIN EVERY 12 MONTHS 12/23/2020 12/24/2019, 11/30/2019, 05/24/2019, Additional history exists Yearly B-12 01/22/2021 01/23/2020, 02/24, 05/16/2018 DIABETES-EYE EXAM 04/07/2021 04/07/2020, , 02/24/2010 (Done elsewhere), Additional history exists CKD HGB USE SMARTSET 30369 05/06/202105/06, 03/13/2020, 11/30/2019, Additional history exists BREAST [...] on File Type Date Recorded Patient Organic Chemist Expl 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
--- OUTSIDE RECORDS SUMMARY | 2023-06-01 05:14 | External Medical Summary | Summary of Care ---
Author Name Unknown Organization [place] [address] Care Team Providers Care Emergency Communications Dispatcher Name Role Phone Stevo Kevin Ocampomelinda Primary Care Provider Reason for Visit * Reason Comments [facility]: Telehealth behavioral health consult Encounter Details Date Type Department Care Team Description 11/04/2020 Telemedicine [facility], [place] [address] [place] [address] Migdalia Goldstein DO [address], [place] [id number] Magaly Morales, Community Health Kosher Dietary Service Manager [address] [place] [address] [phone] Major depressive disorder, recurrent episode, moderate with [...] Reported on 07/17/2020 Blood Glucose Monitoring Suppl (SafeBootTOUCH ULTRA 2) w/Device KIT Use to test [...] MG TabletIndications:Chr onic diastolic congestive heart failure ([facility]) Take 2 Tabs by mouth daily. 180 Tab 3 05/28/2020 Active Additional Information Patient taking differently: 40 mg Oral BID, Reported on 06/13/2020 colchicine 0.6 MG TabletIndications:Jacobo kocytoclastic vasculitis ([facility]) Take [...] XL)Indications:Mild episode of recurrent major depressive disorder ([facility]) Take 1 Tab by [...] 10/14/2014 Overview: ICD-10 update of inactive term [place] filter in place 08/19/2014 History of pulmonary [...] Reading Time Taken Comments Blood Pressure 100/60 11/04/2020 1:59 PM EST Pulse 82 11/04/2020 1:59 PM EST Temperature 36.4 C (97.5 F) 11/04/2020 1:59 PM ES T Respiratory Rate 20 11/04/2020 1:59 PM EST Oxygen Saturation 92% 11/04/2020 2:00 PM EST Inhaled Oxygen Concentration - - Weight - - Height - - Body Mass Index - - documented in this encounter Progress Notes * Jessica Rios Community Health Assistant - 11/04/2020 2:01 PM EST Visit with [...] SpO2 improved. Offered to help pt supervisor dock to O2 (uses @ HS), which she [...] 1:21 PM EST Outpatient Psychiatry Consultation - [facility] Patient presented for initial evaluation. The limits of confidentiality, the consultative nature ofthe first visit, and the fact that information from the visit would be documented in the electronicrecord accessible by care providers across the system were explicitly reviewed. I was not in a hospital or clinic location. After connecting through televideo, patient was verified with two unique identifiers. Patient (or authorized legal business process representative) was then informed that this was a Telemedicine visit and being conducted confidentially over secure lines. Methods to assureconfidentiality were taken. Patient acknowledged consent and understanding of privacy and security of the Telemedicine visit. The patient agreed to participate. CONSULTING PROVIDER: Linda Wilkinson RN, [facility] CHIEF COMPLAINT: Depression evaluation HISTORY OF PRESENT ILLNESS:: Stephanie Camp is a 65 yo single female with a past psychiatric history significant for depression and anxiety who is seen today for one-time consultation at the request of her [facility] team for evaluation of depression. She reports [...] outpatient psychiatrist nor therapist before. Nowwith the [facility] program she is getting monthly supportive visits with the NETWORK PROFESSIONAL and findsthat helpful. Pain seems to make [...] once weekly 6 mL 1 Glucose Blood (Trace TechnologiesUCH ULTRA BLUE) STRP Check sugars 3-4 times daily, E11.9 400 Strip 3 Blood Glucose Monitoring Suppl (Trace TechnologiesUCH ULTRA 2) w/Device KIT Use to [...] History: Diagnosis Date ELSIE (acute kidney injury) ([facility]) 06/12/2018 Allergic rhinitis due to other allergen Backache Diverticulosis of colon 01/28/06 DM type 2, not at goal ([facility]) ELLIE (generalized anxiety disorder) 09/13/[address] [place] filter in [address] 08/19/2014 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[facility]) 08/22/2009 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[facility]) 06/12/2018 History of pulmonary embolus (PE) 07/16/2014 HTN, goal below 140/90 Impetigo 09/27/2018 Obesity, BMI not known Perforation of intestine ([facility]) 1996 COLON -- 1996 Pneumonia in aspergillosis(484.6) 09/14/2009 Spinal stenosis of lumbar region without neurogenic claudication 07/15/2020 Spontaneous pneumothorax 09/14/2009 Statin intolerance 07/16/2014 Type 2 diabetes mellitus with hemoglobin A1c goal of 7.0%-8.0% ([facility]) 10/14/2014 ICD-10 update of inactive term Vaginal karmen 07/13/2018 FAMILY HISTORY: MENTAL ILLNESS a niece with bipolar disorder SUICIDE ATTEMPTS no DRUG AND ALCOHOL no SOCIAL HISTORY CURRENT LIVING SITUATION alone SIBLINGS yes - one brother still living, they are close ABUSE/NEGLECT no HISTORY no EDUCATIONAL HISTORY high school OCCUPATIONAL HISTORY 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; 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 [employer], no children PERTINENT PE/LAB/IMAGING FINDINGS: Reviewed in [facility] MEDICAL RECORDS REVIEW Reviewed in [facility] PHYSICAL ROS Constitutional: + fatigue, no malaise, [...] Yes - [facility] team, PCP, FEED MILL MANAGER Family and community support: Yes - brother, a neighbor she is friendly with Skills in problem solving, conflict resolution and distress tolerance: Yes Cultural and gnosticism beliefs that discourage suicide and support hopefulness: [...] continuing to work with Rema BHANDARI of [facility] and continuing to consider therapy options in [...] and we discussed my upcoming departure from [facility]. She plans to continue to see her PCP for medication. Staff message with recommendations sent to PCP and [facility] team for review 5. Pt was instructed, If she becomes suicidal, homicidal, or her emotional condition were to worsenshe should go to nearest Emergency Room or call National Suicide Prevention Hotline ,or [facility] at . Migdalia Goldstein DO Department of Psychiatry [facility] (Electronically Signed.) documented in this encounter Plan of Treatment Upcoming Encounters Date Type Specialty Care Team Description 11/06/2020 [facility] Vera Capellan RN [address] [place] [address] [phone] 11/11/2020 Home Visit [facility] Rema Real LSW [address] [address] [phone] 11/13/2020 Office Visit Family Medicine Kevin Whiteside DO [address] [address] [phone] 11/19/[address] [facility] Jeramie [address] [place] [address] 01/08/2021 Office Visit Orthopedics Zack Teague DO [address] [address] [phone] 02/02/2021 Office Visit Cardiology Rey Woodall MD [address] [address] [phone] 03/18/2021 Office Visit Nephrology Erik Lenz MD [address] [place] [address], [place] [address] [phone] 08/18/2021 Office Visit Pulmonary Celsa Tafoya CRNP [address] [place] [address] [phone] Health Maintenance Due Date Last Done Comments Zoster Vaccines (3 of 3) 01/02/2020 11/07/2019, 11/24 Pneumococcal Vaccine: 65+ Years (1 of 1 - PPSV23) 2020 08/22/2009, 06/15/2006 DIABETES-HGBA1C EVERY 6 MONTHS 07/24/2020 01/23/2020, 11/07/2019, 08/09/2019, Additional history exists CKD GFR USE SMARTSET 29841 11/06/202005/06, 03/13/2020, 03/07/2020, Additional history exists DIABETES-FOOT EXAM 11/07/2020 11/07/2019, 0 01/01/2019, 12/29/2017, Additional history exists CKD PHOS USE SMARTSET 05145 12/23/2020 03/3 , 11/07/2019, 12/29/2017, Additional history exists DIABETES-URINE MICROALBUMIN EVERY 12 MONTHS 12/23/2020 12/24/2019, 11/30/2019, 05/24/2019, Additional history exists Yearly B-12 01/22/2021 01/23/2020, 02/24, 05/16/2018 DIABETES-EYE EXAM 04/07/2021 04/07/2020, , 02/24/2010 (Done elsewhere), Additional history exists CKD HGB USE SMARTSET 59616 05/06/202105/06, 03/13/2020, 11/30/2019, Additional history exists BREAST [...] Documents on File Type Date Recorded Patient J2Ee Consultant Expl 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
--- OUTSIDE RECORDS SUMMARY | 2023-06-01 05:15 | External Medical Summary | Summary of Care ---
Author Name Unknown Organization [place] [address] Care Team Providers Care Burn Table Operator Name Role Phone Whiteside Kevin Ocampomelinda Primary Care Provider Reason for Visit * Reason Comments [facility]: Maintenance Encounter Details Date Type Department Care Team Description 10/02/2020 Sales Special Agent [facility], [facility] [address] [facility] [place] [address] Rema Real, [employer]ER [facility] [place] [address] [phone] Allergies Active Allergy Reactions Severity Noted Date Comments Codeine 07/08/2014 hallucination Pollen 05/18/2019 Heparin 09/04/2009 Heparin Induced Thrombocytopenia Hydrocodone Neuro complications (Please comment) 07/28/2020 Empagliflozin Other (Please comment) Medium 05/17/2018 3 yeast infections in 6 weeks after starting Morphine And Related 09/16/1997 Hallucinations Tetanus Toxoid Other (Please comment) 06/15/2011 Passed out documented as of this encounter (statuses as of 10/02/2020) Medications Medication Sig Dispensed Refills Start Date [...] MG/0.5ML SOPNIndications:DM type 2 nursing care encounter ([facility]),Uncontrolled type 2 diabetes mellitus with stage 3 chronic kidney disease, with long-term current use of insulin ([facility]) inject 1.5mg (one pen) under the skin once weekly 6 mL 1 05/27/2020 Active furosemide (LASIX) 40 MG TabletIndications:Chr onic diastolic congestive heart failure ([facility]) Take 2 Tabs by mouth [...] XL)Indications:Mild episode of recurrent major depressive disorder ([facility]) Take 1 Tab by mouth daily. 30 Tab 5 07/01/2020 Active NovoLOG FlexPen 100 UNIT/ML Subcutaneous Solution Pen-injector (insulin aspart)Indications:Ty pe 2 diabetes mellitus with hemoglobin A1c goal of 7.0%-8.0% ([facility]) Inject up to 30 units [...] a day. 237 mL 1 07/28/2020 Active clonazePAM 0.5 MG Oral Tablet (KlonoPIN)Indications :Anxiety state Take 1 Tab by mouth 2 times a day. 60 Tab 0 08/26/2020 Active Cyclobenzaprine HCl 10 MG Oral Tablet [...] as of this encounter (statuses as of 10/02/2020) Active Problems Problem Noted Date Spinal stenosis of lumbar region without neurogenic claudication 07/15/2020 Primary osteoarthritis of left knee 02/2 01/2020 Chronic respiratory failure with hypoxia 11/07/2019 Hyperparathyroidism, [...] as of this encounter (statuses as of 10/02/2020) Resolved Problems Problem Noted Date Resolved Date [...] as of this encounter (statuses as of 10/02/2020) Immunizations Name Administration Dates Next Due Pneumococcal [...] Progress Notes * Rema Real LSW - 10/02/2020 5:19 PM EST STEFANY rec'd referral from Vera ELLIOTT CM in regard to increased depression. STEFANY called Stephanie and offeredvisit. Scheduled visit for next Tuesday. documented in this encounter Plan of Treatment Upcoming Encounters Date Type Specialty Care Team Description 10/03/2020 [facility]medicine [facility]rology [facility] [place] [facility] [address] [facility] [address] [phone] 10/03/2020 Scheduled Telephone [facility], [facility] [address] [place] [address] [phone] 10/07/2020 Home Visit [facility] Rema Real LSW [address] [place] [address] [phone] 10/10/2020 Telemedicine Pain Management Cousins, Raj Nolen, [address] [place] [address] [phone] 10/21/2020 Home Visit Family Medicine Magaly Morales, [employer]er [address] [place] [address] [phone] 11/06/2020 Home Visit [facility] Vera Capellan RN [address] [place] [address] [phone] 11/13/2020 Office Visit Family Medicine Kevin Whiteside DO [address] [place] [address] [phone] 11/19/2020 Office Visit Pharmacy [facility] Meo [place] [address] [place] [address] 01/08/2021 Office Visit Orthopedics Zack Teague, [address] [place] [address] [phone] 02/02/2021 Office Visit Cardiology Rey Woodall MD [address] [address] [phone] 08/18/2021 Office Visit Pulmonary Celsa Tafoya CRNP [address] [place] [address] [phone] Health Maintenance Due Date Last Done Comments Zoster Vaccines (3 of 3) 01/02/2020 11/07/2019, 11/24 Pneumococcal Vaccine: 65+ Years (1 of 1 - PPSV23) 2020 08/22/2009, 06/15/2006 DIABETES-HGBA1C EVERY 6 MONTHS 07/24/2020 01/23/2020, 11/07/2019, 08/09/2019, Additional history exists CKD GFR USE SMARTSET 55627 11/06/202005/06, 03/13/2020, 03/07/2020, Additional history exists DIABETES-FOOT EXAM 11/07/2020 11/07/2019, 0 01/01/2019, 12/29/2017, Additional history exists CKD PHOS USE SMARTSET 37424 12/23/2020/, 11/07/2019, 12/29/2017, Additional history exists DIABETES-URINE MICROALBUMIN EVERY 12 MONTHS 12/23/2020 12/24/2019, 11/30/2019, 05/24/2019, Additional history exists Yearly B-12 01/22/2021 01/23/2020, 02/24, 05/16/2018 DIABETES-EYE EXAM 04/07/2021 04/07/2020, , 02/24/2010 (Done elsewhere), Additional history exists CKD HGB USE SMARTSET 47748 05/06/202105/06, 03/13/2020, 11/30/2019, Additional history exists BREAST [...] on File Type Date Recorded Patient Field Counsel Expl 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
--- OUTSIDE RECORDS SUMMARY | 2023-06-01 05:15 | External Medical Summary | Summary of Care ---
Author Name Unknown Organization [place] [address] Care Team Providers Care Stained Glass Window Designer Name Role Phone Stevo Kevin Ocampomelinda Primary Care Provider Encounter Details Date Type Department Care Team Description 10/21/2020 Telephone Care Coordination [address] [place] [address] Magaly Morales, [employer] Assistant Principal [address] [place], [place] [id number] Allergies Active Allergy Reactions Severity Noted Date Comments Codeine 07/08/2014 hallucination Pollen 05/18/2019 Heparin 09/04/2009 Heparin Induced Thrombocytopenia Hydrocodone Neuro complications (Please comment) 07/28/2020 Empagliflozin Other (Please comment) Medium 05/17/2018 3 yeast infections in 6 weeks after starting Morphine And Related 09/16/1997 Hallucinations Tetanus Toxoid Other (Please comment) 06/15/2011 Passed out documented as of this encounter (statuses as of 10/21/2020) Medications Medication Sig Dispensed Refills Start Date [...] Reported on 07/17/2020 Blood Glucose Monitoring Suppl ([employer] ULTRA 2) w/Device KIT Use to test [...] episode of recurrent major depressive disorder ([facility]) Take 1 Tab by mouth daily. 30 Tab 5 07/01/2020 Active NovoLOG FlexPen 100 UNIT/ML Subcutaneous Solution Pen-injector (insulin aspart)Indications:Ty pe 2 diabetes mellitus with hemoglobin A1c goal of 7.0%-8.0% ([facility]) Inject up to 30 [...] as of this encounter (statuses as of 10/21/2020) Active Problems Problem Noted Date Spinal stenosis [...] 10/14/2014 Overview: ICD-10 update of inactive term [place] filter in place 08/19/2014 History of pulmonary embolus (PE) 2013 Statin intolerance 07/16/2014 HTN, goal below 130/80 02/22/2014 Venous insufficiency 02/07/2013 ELISSA (obstructive sleep apnea) 09/16/2011 Overview: CPAP 11 cwp Mild, AHI 11.3 but with significant nocturnal hypoxemia Dicks Postsurgical hypothyroidism 06/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 documented as of this encounter (statuses as of 10/21/2020) Resolved Problems Problem Noted Date Resolved Date [...] as of this encounter (statuses as of 10/21/2020) Immunizations Name Administration Dates Next Due Pneumococcal [...] encounter Miscellaneous Notes * Telephone Encounter - Magaly Morales [employer] Assistant Principal - 10/21/2020 8:48 AM EST Call to confirm appointment and covid questions Electronically signed by Magaly Morales [employer] Assistant Principal at 10/21/2020 8:49 AM EST documented in this encounter Plan of Treatment Upcoming Encounters Date Type Specialty Care Team Description 10/27/2020 Office Visit Dermatology Apple Kaminski MD [address] [place] [address] [phone] 11/06/2020 Home Visit [facility] Vera Capellan, RN [address] [place] [address] [phone] 11/11/2020 Home Visit [facility] Rema Real LSW [address] [place] [address] [phone] 11/13/2020 Office Visit Family Medicine Kevin Whiteside, DO [address] [place] [address] [phone] 11/19/2020 Office Visit Pharmacy [facility] [address] [place] [address] 01/08/2021 Office Visit Orthopedics Zack Teague, DO [address] [place] [address] [phone] 02/02/2021 Office Visit Cardiology Rey Woodall MD [address] [place] [address] [phone] 03/18/2021 Office Visit Nephrology Erik L[place] MD [address] [place] [address] [phone] 08/18/2021 Office Visit Pulmonary Celsa Tafoya CRNP [address] [place] [address] [phone] Health Maintenance Due Date Last Done Comments Zoster Vaccines (3 of 3) 01/02/2020 11/07/2019, 11/24 Pneumococcal Vaccine: 65+ Years (1 of 1 - PPSV23) 2020 08/22/2009, 06/15/2006 DIABETES-HGBA1C EVERY 6 MONTHS 07/24/2020 01/23/2020, 11/07/2019, 08/09/2019, Additional history exists CKD GFR USE SMARTSET 01052 11/06/202005/06, 03/13/2020, 03/07/2020, Additional history exists DIABETES-FOOT EXAM 11/07/2020 11/07/2019, 0 01/01/2019, 12/29/2017, Additional history exists CKD PHOS USE SMARTSET 11605 12/23/2020 03/3 , 11/07/2019, 12/29/2017, Additional history exists DIABETES-URINE MICROALBUMIN EVERY 12 MONTHS 12/23/2020 12/24/2019, 11/30/2019, 05/24/2019, Additional history exists Yearly B-12 01/22/2021 01/23/2020, 02/24, 05/16/2018 DIABETES-EYE EXAM 04/07/2021 04/07/2020, , 02/24/2010 (Done elsewhere), Additional history exists CKD HGB USE SMARTSET 02384 05/06/202105/06, 03/13/2020, 11/30/2019, Additional history exists BREAST [...] Documents on File Type Date Recorded Patient Can Coverer Expl 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
--- OUTSIDE RECORDS SUMMARY | 2023-06-01 05:15 | External Medical Summary | Summary of Care ---
Author Name Unknown Organization [place] [address] Care Team Providers Care Sulfonator Operator Name Role Phone Kevin Whiteside DO Primary Care Provider Reason for Referral * Evaluate & Treat - Unlimited Visits (Within 10 days (routine)) Status Reason Specialty Diagnoses / Procedures Referred By Contact Referred To Contact Pending Review Specialty Services Required Psychiatry Diagnoses Moderate episode of recurrent major depressive disorder (HCC) Kevin Whiteside DO [address] [facility] [place] [address] Frances Claudio DO [address] [facility] [place] [address] Reason for Visit * Reason Onset Date Comments [facility]: Maintenance 10/02/2020 Encounter Details Date Type Department Care Team Description 10/02/2020 Telephone [facility], [facility] [address] [place] [address] Vera [facility]an RN [facility] [place] [address] [phone] [facility]: Maintenance Allergies Active Allergy Reactions Severity Noted Date Comments Codeine 07/08/2014 hallucination Pollen 05/18/2019 Heparin 09/04/2009 Heparin Induced Thrombocytopenia Hydrocodone Neuro complications (Please comment) 07/28/2020 Empagliflozin Other (Please comment) Medium 05/17/2018 3 yeast infections in 6 weeks after starting Morphine And Related 09/16/1997 Hallucinations Tetanus Toxoid Other (Please comment) 06/15/2011 Passed out documented as of this encounter (statuses as of 10/07/2020) Medications Medication Sig Dispensed Refills Start Date [...] 3 0 Active rOPINIRole (REQUIP) 2 MG TabletIndications: Restless legs syndrome Take 1 Tab by mouth at bedtime. 90 Tab 3 0 Active metoprolol tartrate (LOPRESSOR) 25 MG TabletIndications: HTN, [...] in 10/2019 1 Each 0 0 Active gabapentin (NEURONTIN) 300 MG CapsuleIndications :Type 2 diabetes mellitus with hemoglobin A1c goal of 7.0%-8.0% ([facility]) TAKE ONE CAPSULE BY MOUTH THREE TIMES DAILY 270 Cap 0 0 Active Additional Information Patient taking differently: 300 mg Oral TID, Taking 300mg in am and 600mg in pm, Reported on 07/17/2020 Blood Glucose Monitoring Suppl ([employer] ULTRA 2) w/Device KIT Use to test [...] MG TabletIndications: Chronic diastolic congestive heart failure ([facility]) Take 2 Tabs by mouth daily. 180 Tab 3 0 Active Additional Information Patient taking differently: 40 mg Oral BID, Reported on 06/13/2020 colchicine 0.6 MG TabletIndications: Leukocytoclastic vasculitis (HCC) [...] with insulin 200 Each 11 0 Active buPROPion HCl ER (XL) 150 MG Oral Tablet Extended Release 24 Hour (Wellbutrin XL)Indications:Mil d episode of recurrent major depressive disorder (HCC) Take 1 Tab by mouth daily. 30 Tab 5 0 Active NovoLOG FlexPen 100 UNIT/ML Subcutaneous [...] mouth daily. 1 Tab 0 0 Active Doxycycline Hyclate 100 MG Oral Capsule Take 100 mg by mouth 2 times a day. 0 0 Active First-Mouthwash BLM Mouth/Throat SuspensionIndicati ons:Pain in mouth [...] mg daily. 90 Cap 3 1 Active traMADol HCl 50 MG Oral Tablet (ULTRAM)Indication s:Chronic pain syndrome Take 1 Tab by mouth every 8 hours as needed for Pain, Severe. 90 Tab 0 1 Active DULoxetine (CYMBALTA) 60 MG CPEPIndications:Fi bromyalgia,Moderat e episode of recurrent major depressive disorder (HCC),Primary osteoarthritis of both knees Take 1 Cap by mouth daily. Along with 30 mg capsule to total 90 mg daily. 90 Cap 3 0 10/02/19 21 Discontinued(Re fill) traMADol HCl 50 MG Oral Tablet (ULTRAM)Indication s:Chronic pain syndrome Take 1 Tab by mouth every 8 hours as needed for Pain, Severe. 90 Tab 0 0 10/02/19 21 Discontinued(Re fill) clonazePAM 0.5 MG Oral Tablet (KlonoPIN)Indicati ons:Anxiety state Take 1 Tab by mouth 2 times a day. 60 Tab 0 0 10/03/19 21 Discontinued DULoxetine HCl 30 MG Oral Capsule Delayed Release Particles (CYMBALTA) TAKE ONE CAPSULE BY MOUTH DAILY. take with 60mg capsule for total of 90mg 90 Cap 1 0 10/02/19 21 Discontinued documented as of this encounter (statuses as of 10/07/2020) Active Problems Problem Noted Date Spinal stenosis [...] as of this encounter (statuses as of 10/07/2020) Resolved Problems Problem Noted Date Resolved Date [...] as of this encounter (statuses as of 10/07/2020) Immunizations Name Administration Dates Next Due Pneumococcal [...] Telephone Encounter - Vera Capellan RN - 10/07/2020 3:06 PM EST Patient is not interested in telemed with Dr. Claudio at this time. She will let us know if she changes her mind. She is feeling better today and back pain is better with tramadol and PT. Thank you! * Telephone Encounter - Kevin Whiteside DO - 10/02/2020 12:42 PM EST cymbalta is as high as I would go for now Will refill tramadol Would advise telemed f/u with Dr. Claudio for further psychiatric med options? * Telephone Encounter - Vera Capellan RN - 10/02/2020 8:52 AM EST Good morning, Patient needs refill of Tramadol. She is completely out and continues to have back pain - today having pain all over. [facility]. Also, pt is having increased depression. She is tearful today, missing her family and frustrated with health problems. Her apartment has been a mess, she has no motivation - Is it possible for her cymbalta to be increased? Thank you. Vera documented in this encounter Plan of Treatment Upcoming Encounters Date Type Specialty Care Team Description 10/10/2020 Telemedicine Pain Management Raj Ahn, DO [address] [place] [address] [phone] 10/21/2020 Home Visit Family Medicine Magaly Morales, [facility] Signal Mechanic [address] [place] [address] [phone] 11/06/2020 Home Visit [facility] Vera Capellan RN [address] [place] [address] [phone] 11/11/2020 Home Visit [facility] Rema Real LSW [address] [place] [address] [phone] 11/13/2020 Office Visit Family Medicine Kevin Whiteside, [address] [place] [address] [phone] 11/19/2020 Office Visit Pharmacy [facility] Jer[place] [address] [place] [address] 01/08/2021 Office Visit Orthopedics Zack Teague, DO [address] [place] [address] [phone] 02/02/2021 Office Visit Cardiology Rey Woodall MD [address] [place] [address] [phone] 03/18/2021 Office Visit Nephrology Erik [place] MD [address] [place] [address] [phone] 08/18/2021 Office Visit Pulmonary Celsa Tafoya CRNP [address] [place] [address] [phone] Scheduled Referrals Name Type Priority Associated Diagnoses Orde r Schedule PSYCHIATRY REFERRAL OP Referral Within 10 days (routine) Moderate episode of recurrent major depressive disorder (HCC) Ordered: 10/02/2020 Health Maintenance Due Date Last Done Comments Zoster Vaccines (3 of 3) 01/02/2020 11/07/2019, 11/24 Pneumococcal Vaccine: 65+ Years (1 of 1 - PPSV23) 2020 08/22/2009, 06/15/2006 DIABETES-HGBA1C EVERY 6 MONTHS 07/24/2020 01/23/2020, 11/07/2019, 08/09/2019, Additional history exists CKD GFR USE SMARTSET 50306 11/06/202005/06, 03/13/2020, 03/07/2020, Additional history exists DIABETES-FOOT EXAM 11/07/2020 11/07/2019, 0 01/01/2019, 12/29/2017, Additional history exists CKD PHOS USE SMARTSET 75280 12/23/2020/, 11/07/2019, 12/29/2017, Additional history exists DIABETES-URINE MICROALBUMIN EVERY 12 MONTHS 12/23/2020 12/24/2019, 11/30/2019, 05/24/2019, Additional history exists Yearly B-12 01/22/2021 01/23/2020, 02/24, 05/16/2018 DIABETES-EYE EXAM 04/07/2021 04/07/2020, , 02/24/2010 (Done elsewhere), Additional history exists CKD HGB USE SMARTSET 38536 05/06/202105/06, 03/13/2020, 11/30/2019, Additional history exists BREAST [...] knees Primary localized osteoarthrosis, lower leg Chronic pain syndrome documented in this encounter Advance Directives Documents on File Type Date Recorded Patient Senior Clinical Data Manager Expl 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
--- OUTSIDE RECORDS SUMMARY | 2023-06-01 05:15 | External Medical Summary | Summary of Care ---
Author Name Unknown Organization [place] [address] Care Team Providers Care Urban Forester Name Role Phone Kevin Whiteside DO Primary Care Provider Reason for Visit * Reason Comments Chronic Kidney Disease (CKD) Encounter Details Date Type Department Care Team Description 10/03/2020 Telemedicine [facility] [address] [place] [address] Erik Lenz MD [address] [place] [address] CKD (chronic kidney disease) stage 4, GFR 15-29 ml/min ([facility])*; Chronic diastolic congestive heart failure (HCC); Vitamin D deficiency; Type 2 diabetes mellitus with diabetic chronic kidney disease (HCC); HTN, goal below 130/80 Allergies Active [...] as of this encounter (statuses as of 10/03/2020) Medications Medication Sig Dispensed Refills Start Date [...] disease, with long-term current use of insulin ([facility]) inject 1.5mg (one pen) under the skin once weekly 6 mL 1 05/27/2020 Active furosemide (LASIX) 40 MG TabletIndications:Chr onic diastolic congestive heart failure ([facility]) Take 2 Tabs by mouth daily. 180 [...] XL)Indications:Mild episode of recurrent major depressive disorder ([facility]) Take 1 Tab by mouth daily. 30 Tab 5 07/01/2020 Active NovoLOG FlexPen 100 UNIT/ML Subcutaneous Solution Pen-injector (insulin aspart)Indications:Ty pe 2 diabetes mellitus with hemoglobin A1c goal of 7.0%-8.0% ([facility]) Inject up to 30 units with meals [...] as of this encounter (statuses as of 10/03/2020) Active Problems Problem Noted Date Spinal stenosis [...] 10/14/2014 Overview: ICD-10 update of inactive term [place] filter in place 08/19/2014 History of pulmonary embolus (PE) 2013 Statin intolerance 07/16/2014 HTN, goal below 130/80 02/22/2014 Venous insufficiency 02/07/2013 ELISSA (obstructive sleep apnea) 09/16/2011 Overview: CPAP 11 cwp Mild, AHI 11.3 but with significant nocturnal hypoxemia Dicks Postsurgical hypothyroidism 06/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 documented as of this encounter (statuses as of 10/03/2020) Resolved Problems Problem Noted Date Resolved Date [...] as of this encounter (statuses as of 10/03/2020) Immunizations Name Administration Dates Next Due Pneumococcal [...] as of this encounter Progress Notes * Erik Lenz MD - 10/03/2020 10:57 AM EST I was in a hospital or clinic location. After connecting through televideo, patient was verified with two unique identifiers. Patient (or authorized legal pharmacy sales representative) was then informed that this was a Telemedicine visit and being conducted confidentially over secure lines. Methods to assure confidentiality were taken. Patient acknowledged consent and understanding of privacy and security of the Telemedicine visit. The patient agreed to participate. HPI: This 65-year-old female with CKD stage [...] mild cortical atrophy and mild right-sided hydronephrosis. echocardiogramAugust 2019showed EF of60%and grade 1 diastolic dysfunction. [facility] the weakness and CHF exacerbation. Creatinine peaked at 2.3. Last office visit was in 12/2019--she had UTI and Lyme disease and July 2020 and has recovered from that now. She uses oxygen when walking. No leg swelling. Blood sugar Has been good since gettingthe insulin pump. Diabetes seems better Blood pressure seems okay as per patient Renal function fluctuates quite a bit Review of Systems: General ROS: negative for [...] History: Diagnosis Date ELSIE (acute kidney injury) ([facility]) 06/12/2018 Allergic rhinitis due to other allergen Backache Diverticulosis of colon 01/28/06 DM type 2, not at goal ([facility]) ELLIE (generalized anxiety disorder) 09/13/[address] Goiter [place] filter in place 08/19/2014 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HCC) 08/22/2009 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HCC) 06/12/2018 History of pulmonary embolus (PE) 07/16/2014 HTN, goal below 140/90 Impetigo 09/27/2018 Obesity, BMI not known Perforation of intestine ([facility]) 1996 COLON -- 1996 Pneumonia in aspergillosis(484.6) 09/14/2009 Spinal stenosis of lumbar region without neurogenic claudication 07/15/2020 Spontaneous pneumothorax 09/14/2009 Statin intolerance 07/16/2014 Type 2 diabetes mellitus with hemoglobin A1c goal of 7.0%-8.0% ([facility]) 10/14/2014 ICD-10 update of inactive term Vaginal karmen 07/13/2018 Past Surgical History: Procedure Laterality Date ARTHROPLASTY KNEE TOTAL Right 07/24/14 R COLONOSCOPY, DIAGNOSTIC (RECTUM) 02/18/2016 normal, repeat 10 yrs/[facility] COLONOSCOPY, GI REFERRAL OP 01/28/06 diverticulosis--repeat 10 years INCISION OF WINDPIPE, PLANNED 06/03/2011 TRACHEOSTOMY PLANNED [place] [facility] [place]/THER SUBSTANCE INTERLAMINAR LUMBAR/SACRAL W IMAGE GUIDE 05/26/2020 INJECTION SPINE LUMBAR OR SACRAL performed by Raj Ahn DO at OR [facility] KNEE ARTHROSCOPY/DEBRIDEMENT 07/[address] PERMANENT GASTROSTOMY TUBE 09/06/09 GASTROSTOMY WITH CONSTUCTION GASTRIC TUBE performed [place] AMADOU NUNEZ [place] [facility] [place]OVAL OF THYROID GLAND 06/15/2011 THYROIDECTOMY INCLUDING SUBSTERNAL THYROID CERVICAL APPROACH performed [place] DANNY HOLDER [place] [facility] [place] GALLBLADDER 09/06/09 CHOLECYSTECTOMY performed by AMADOU NUNEZ [place] [facility] [place] RECURRENT INCISIONAL HERNIA 1998 REVISION OF COLOSTOMY, SIMPLE 1997 SACROILIAC JOINT INJECT W/GUIDANCE 07/28/2020 INJECTION SACROILIAC JOINT performed by Raj Ahn DO at OR [facility] SUTURE, LARGE INTESTINE W/COLOSTOMY 1996 perforation R colon with colostomy VENA CAVA FILTER/LIGATION/CLIP 08/19/09 [place] filter placement through the right femoral 08/19/[address] Lemra [address] [facility] Review of patient's allergies indicates: Allergen Reactions Jardiance [Empagliflozin] Other (Please comment) 3 yeast infections in 6 weeks after starting Codeine hallucination Hay Fever [Pollen] Heparin Heparin Induced Thrombocytopenia Hydrocodone Neuro complications (Please comment) Morphine And Related Hallucinations Tetanus Toxoid Other (Please comment) Passed out Current Outpatient Medications Medication Sig Dispense Refill DULoxetine HCl 30 MG Oral Capsule Delayed [...] BEDTIME NEEDED FOR SPASM 30 Tab 0 clonazePAM 0.5 MG Oral Tablet (KlonoPIN) Take 1 Tab by mouth 2 times a day. 60 Tab 0 Doxycycline Hyclate 100 MG Oral [...] 1 Tab bymouth daily. 30 Tab 5 NovoLOG FlexPen 100 [...] mouth daily. (Patient taking differently: Take 40 mg by mouth 2 times a day.) 180 Tab 3 TRULICITY 1.5 MG/0.5ML SOPN inject 1.5mg (one pen) under the skin once weekly 6 mL 1 Glucose Blood (WerckerUCH ULTRA BLUE) STRP Check sugars 3-4 times daily, E11.9 400 Strip 3 Blood Glucose Monitoring Suppl (HyglosTOUCH ULTRA 2) w/Device KIT Use to test [...] level: Not on file Occupational History Occupation: [employer] Employer: [employer] Occupation: [employer] Employer: [employer] Social Needs Financial resource strain: Not on file Food insecurity Worry: Never true Inability: Never true Transportation needs Medical: Not on file Non-medical: Not on file Tobacco Use Smoking status: Former Smoker Packs/day: 1.00 Years: 15.00 Pack years: 15.00 Quit date: 08/26/1997 Years since quittin.1 Smokeless tobacco: Never Used Substance and Sexual Activity Alcohol use: Not Currently Comment: rare Drug use: No Sexual activity: Not Currently Lifestyle Physical activity Days per week: Not on file Minutes per session: Not on file Stress: Not on file Relationships Social connections Talks on phone: Not on file Gets together: Not on file Attends yarsanism service: Not on file Active member of [...] file Social History Narrative 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 She is no longertaking NSAIDs. She can use Tylenol for pain control. She knows to limit salt and keepwell hydratedbut not more than 2 L of water daily. Repeat labs as below. Reviewed hospital admission for UTI and Lyme disease and July 2020 - CBC WITH WBC DIFFERENTIAL; Future; Expected date: 10/03/2020 - HEMOGLOBIN A1C; Future; Expected date: 10/03/2020 - PTH; Future; Expected date: 10/03/2020 - RENAL FUNCTION PANEL; Future; Expected date: 10/03/2020 - PROTEIN/ CREATININE RATIO, URINE; Future; Expected date: 10/03/2020 - URINALYSIS WITH MICROSCOPIC EXAM; Future; Expected date: 10/03/2020 - MAGNESIUM; Future; Expected date: 10/03/2020 - 25-HYDROXY VITAMIN D; Future; Expected date: 10/03/2020 Chronic diastolic congestive heart failure (HCC) Her symptoms are controlled on diuretics. Continue current dose of Lasix40 mgtwice daily. She will continue to monitor her weight. She knows to notify us if she gains over 5 lb in 2 days - BNP (NT-PROBNP); Future; Expected date: 10/03/2020 Vitamin D deficiency - 25-HYDROXY VITAMIN D; Future; Expected date: 10/03/2020 HTN, goal below 140/90 Her blood pressureis controlled with the current regimen which includes metoprolol and Lasix. Notsure why she needs such a low dose of K supplement.Will likely stop after labs Follow Up: Return in about 6 months (around 04/02/2021) for Clinic Visit. | For: Clinic Visit Erik Lenz MD documented in this encounter Nursing Notes * Teri Cullen, RN - 10/03/2020 10:53 AM EST Does the patient have a home BP monitor and/or scale? yes Can the patient check their BP and/or weight prior to speaking with the doctor or while talking with you? Will take it before you call Does the patient utilize [facility] or have a home health nurse? no Has the patient had any recent hospital admission or emergency room visits? no If yes for what reason: Has the patient had any new health information that may be added to the chart? no If yes what information needs added: Does the patient have any questions or concerns for the doctor? no documented in this encounter Plan of Treatment Upcoming Encounters Date Type Specialty Care Team Description 10/03/2020 [facility]uled [facility]phone [facility] [address] [place] [address] [phone] 10/07/2020 Home Visit [facility] Rema Real LSW [address] [place] [address] [phone] 10/10/2020 Telemedicine Pain Management Cousinthaddeus, Raj Callum, DO [address] [place] [address] [phone] 10/21/2020 Home Visit Family Medicine Magaly Morales, Community Health Credit Control Officer [address] [place] [address] 11/06/2020 Home Visit [facility] [place] Vera Capellan RN [address] [place] [address] [phone] 11/13/2020 Office Visit Family Medicine Kevin Whiteside, DO [address] [place] [address] [phone] 11/19/2020 Office Visit Pharmacy [facility] [address] [place] [address] 01/08/2021 Office Visit Orthopedics Zack Teague, DO [address] [place] [address] [phone] 02/02/2021 Office Visit Cardiology Rey Woodall MD [address] [place] [address] [phone] 08/18/2021 Office Visit Pulmonary Celsa Tafoya CRNP [address] [place] [address] [phone] Scheduled Orders Name Type Priority Associated Diagnoses Orde r Schedule CBC WITH WBC DIFFERENTIAL Lab Routine CKD (chronic kidney disease) stage 4, GFR 15-29 ml/min (HCC) Expected: 10/03/2020 (Approximate), Expires: 04/01/2021 BNP (NT-PROBNP) Lab Routine Chronic diastolic congestive heart failure (HCC) Expected: 10/03/2020 (Approximate), Expires: 04/01/2021 HEMOGLOBIN A1C Lab Routine CKD (chronic kidney disease) stage 4, GFR 15-29 ml/min (HCC) Expected: 10/03/2020 (Approximate), Expires: 04/01/2021 PTH Lab Routine CKD (chronic kidney disease) stage 4, GFR 15-29 ml/min (HCC) Expected: 10/03/2020 (Approximate), Expires: 04/01/2021 RENAL FUNCTION PANEL Lab Routine CKD (chronic kidney disease) stage 4, GFR 15-29 ml/min (HCC) Expected: 10/03/2020 (Approximate), Expires: 04/01/2021 PROTEIN/ CREATININE RATIO, URINE Lab Routine CKD (chronic kidney disease) stage 4, GFR 15-29 ml/min (HCC) Expected: 10/03/2020 (Approximate), Expires: 04/01/2021 URINALYSIS WITH MICROSCOPIC EXAM Lab Routine CKD (chronic kidney disease) stage 4, GFR 15-29 ml/min (HCC) Expected: 10/03/2020 (Approximate), Expires: 04/01/2021 MAGNESIUM Lab Routine CKD (chronic kidney disease) stage 4, GFR 15-29 ml/min (HCC) Expected: 10/03/2020 (Approximate), Expires: 04/01/2021 25-HYDROXY VITAMIN D Lab Routine CKD (chronic kidney disease) stage 4, GFR 15-29 ml/min (HCC) Vitamin D deficiency Expected: 10/03/2020 (Approximate), Expires: 04/01/2021 Health Maintenance Due Date Last Done Comments Zoster Vaccines (3 of 3) 01/02/2020 11/07/2019, 11/24 Pneumococcal Vaccine: 65+ Years (1 of 1 - PPSV23) 2020 08/22/2009, 06/15/2006 DIABETES-HGBA1C EVERY 6 MONTHS 07/24/2020 01/23/2020, 11/07/2019, 08/09/2019, Additional history exists CKD GFR USE SMARTSET 02330 11/06/202005/06, 03/13/2020, 03/07/2020, Additional history exists DIABETES-FOOT EXAM 11/07/2020 11/07/2019, 0 01/01/2019, 12/29/2017, Additional history exists CKD PHOS USE SMARTSET 28406 12/23/2020 03/3 , 11/07/2019, 12/29/2017, Additional history exists DIABETES-URINE MICROALBUMIN EVERY 12 MONTHS 12/23/2020 12/24/2019, 11/30/2019, 05/24/2019, Additional history exists Yearly B-12 01/22/2021 01/23/2020, 02/24, 05/16/2018 DIABETES-EYE EXAM 04/07/2021 04/07/2020, , 02/24/2010 (Done elsewhere), Additional history exists CKD HGB USE SMARTSET 59918 05/06/202105/06, 03/13/2020, 11/30/2019, Additional history exists BREAST [...] as of this encounter Visit Diagnoses Diagnosis CKD (chronic kidney disease) stage 4, GFR 15-29 ml/min (HCC)- Primary Chronic kidney disease, Stage IV (severe) Chronic diastolic congestive heart failure (HCC) Chronic diastolic heart failure Vitamin D deficiency Unspecified vitamin D deficiency Type 2 diabetes mellitus with diabetic chronic kidney disease (HCC) Type II or unspecified type diabetes mellitus with renal manifestations, not stated as uncontrolled HTN, goal below 130/80 Unspecified essential hypertension documented in this encounter Advance Directives Documents on File Type Date Recorded Patient Inspector And Clipper Expl 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
--- OUTSIDE RECORDS SUMMARY | 2023-06-01 05:15 | External Medical Summary | Summary of Care ---
Author Name Unknown Organization [place] [address] Care Team Providers Care Cargo Checker Name Role Phone Stevo Kevin Ocampomelinda Primary Care Provider Reason for Visit * Reason Comments Lumbar Pain W/radiation Encounter Details Date Type Department Care Team Description 10/10/2020 Telemedicine Interventional [facility] Center, [facility] [address] [place] [id number] CousinRaj travis DO [address] [place] [id number] Spinal stenosis of lumbar region with neurogenic claudication* Allergies Active Allergy Reactions Severity Noted Date Comments Codeine 07/08/2014 hallucination Pollen 05/18/2019 Heparin 09/04/2009 Heparin Induced Thrombocytopenia Hydrocodone Neuro complications (Please comment) 07/28/2020 Empagliflozin Other (Please comment) Medium 05/17/2018 3 yeast infections in 6 weeks after starting Morphine And Related 09/16/1997 Hallucinations Tetanus Toxoid Other (Please comment) 06/15/2011 Passed out documented as of this encounter (statuses as of 10/10/2020) Medications Medication Sig Dispensed Refills Start Date [...] XL)Indications:Mild episode of recurrent major depressive disorder ([facility]) Take 1 Tab by mouth [...] as of this encounter (statuses as of 10/10/2020) Active Problems Problem Noted Date Spinal stenosis [...] as of this encounter (statuses as of 10/10/2020) Resolved Problems Problem Noted Date Resolved Date [...] as of this encounter (statuses as of 10/10/2020) Immunizations Name Administration Dates Next Due Pneumococcal [...] as of this encounter Progress Notes * Cousins, Raj Nolen, DO - 10/10/2020 12:31 PM EST Name: Stephanie Camp Date: 10/10/2020 HPI: Stephanie Camp is a 65 year old female who presents for telemedicine visit.I was in a hospital orclinic location. After connecting through televideo, patient was verified with two unique identifiers. Patient (or authorized legal ocean import representative) was then informed that this was a Telemedicine visit and being conducted confidentially over secure lines. Methods to assure confidentiality were taken. Patient acknowledged consent and understanding of privacy and security of the Telemedicine visit. The patient agreed to participate. She acknowledges some improvement with her physical therapy program. She still has another week or 2 of visits to complete. She has not having a great deal pain in her buttocks or legs with ambulation but does feel that her legs feel heavy year week when she tries to walk. There is some lumbar and lumbosacral pain with associated with buttocks symptoms bilaterally. She denies bowel or bladder dysfunction. She indicates that the epidural injection at was completed in late April of 2020 was moreeffective than the more recent the right sacroiliac joint injection in July. She has been walking on a treadmill for least few minutes which she was not able to do previously. History: Past Medical History: Diagnosis Date ELSIE (acute kidney injury) ([facility]) 06/12/2018 Allergic rhinitis due to other allergen Backache Diverticulosis of colon 01/28/06 DM type 2, not at goal ([facility]) ELLIE (generalized anxiety disorder) 09/13/[address] filter in place 08/19/2014 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[facility]) 08/22/2009 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[facility]) 06/12/2018 History of pulmonary embolus (PE) 07/16/2014 HTN, goal below 140/90 Impetigo 09/27/2018 Obesity, BMI not known Perforation of intestine ([facility]) 1996 COLON -- 1996 Pneumonia in aspergillosis(484.6) 09/14/2009 Spinal stenosis of lumbar region without neurogenic claudication 07/15/2020 Spontaneous pneumothorax 09/14/2009 Statin intolerance 07/16/2014 Type 2 diabetes mellitus with hemoglobin A1c goal of 7.0%-8.0% ([facility]) 10/14/2014 ICD-10 update of inactive term Vaginal karmen 07/13/2018 Past Surgical History: Procedure Laterality Date ARTHROPLASTY KNEE TOTAL Right 07/24/14 R COLONOSCOPY, DIAGNOSTIC (RECTUM) 02/18/2016 normal, repeat 10 yrs/[facility] COLONOSCOPY, GI REFERRAL OP 01/28/06 diverticulosis--repeat 10 years INCISION OF WINDPIPE, PLANNED 06/03/2011 TRACHEOSTOMY PLANNED [place]DER [place] [facility] [place]/THER SUBSTANCE INTERLAMINAR LUMBAR/SACRAL W IMAGE GUIDE 05/26/2020 INJECTION SPINE LUMBAR OR SACRAL performed by Raj Ahn DO at OR [facility] KNEE ARTHROSCOPY/DEBRIDEMENT 07/[address] PERMANENT GASTROSTOMY TUBE 09/06/09 GASTROSTOMY WITH CONSTUCTION GASTRIC TUBE performed by AMADOU NUNEZ at [place] [facility] [place] REMOVAL OF THYROID GLAND 06/15/2011 THYROIDECTOMY INCLUDING SUBSTERNAL THYROID CERVICAL APPROACH performed by DANNY HOLDER at [place] [facility] [place] REMOVE GALLBLADDER 09/06/09 CHOLECYSTECTOMY performed by AMADOU NUNEZ at [place] [facility] [place] REPAIR RECURRENT INCISIONAL HERNIA 1998 REVISION OF COLOSTOMY, SIMPLE 1997 SACROILIAC JOINT INJECT W/GUIDANCE 07/28/2020 INJECTION SACROILIAC JOINT performed by Raj Ahn DO at OR [facility] SUTURE, LARGE INTESTINE W/COLOSTOMY 1996 perforation R colon with colostomy VENA CAVA FILTER/LIGATION/CLIP 08/19/09 Frank filter placement through the right femoral 08/19/[address] Lerma at [facility] Current Outpatient Medications Medication Sig Dispense [...] once weekly 6 mL 1 Glucose Blood (InfectiousTOUCH ULTRA BLUE) STRP Check sugars 3-4 times [...] Quit date: 08/26/1997 Years since quittin.1 Smokeless Tobacco Never Used Social History Substance and Sexual Activity Alcohol Use Not Currently Comment: rare ROS CONSTITUTIONAL: Denies anorexia, weight loss, fever, night sweats RESPIRATORY: Denies shortness of breath, wheezing, productive cough CARDIOVASCULAR: Denies chest pains, irregular heartbeat HEME: Denies easy bruising , anti-coagulation therapy ROS EXAM: Remainder of ROS negative as discussed above in the HPI ASSESSMENT: Lumbar spinal stenosis with neurogenic claudication RECOMMENDATION: She is going to defer further epidural steroid injection for now. In a few months if the COVID 19 activity is declining and she is having worsening claudication symptoms she can contact me and we mayconsider repeat injection. Visit time: 12 minutes Raj Ahn DO 10/10/2020 12:32 PM documented in this encounter Plan of Treatment Upcoming Encounters Date Type Specialty Care Team Description 10/21/2020 Home Visit Family Medicine Magaly Morales, Community Health Senior Validation Engineer [address] [place] [address] [phone] 11/06/2020 [facility] Visit [facility] Vera Capellan RN [address] [place] [address] [phone] 11/11/2020 Home Visit [facility] Rema Real LSW [address] [place] [address] [phone] 11/13/2020 Office Visit Family Medicine Kevin Whiteside DO [address] [place] [address] [phone] 11/19/2020 Office Visit Pharmacy [facility] [address] [address] 01/08/2021 Office Visit Orthopedics Zack Teague DO [address] [address] [phone] 02/02/2021 Office Visit Cardiology Rey Woodall MD [address] [address] [phone] 03/18/2021 Office Visit Nephrology Erik Lenz MD [address] [place] [address], [place] [address] [phone] 08/18/2021 Office Visit Pulmonary Celsa Tafoya CRNP [address] [place] [address] [phone] Health Maintenance Due Date Last Done Comments Zoster Vaccines (3 of 3) 01/02/2020 11/07/2019, 11/24 Pneumococcal Vaccine: 65+ Years (1 of 1 - PPSV23) 2020 08/22/2009, 06/15/2006 DIABETES-HGBA1C EVERY 6 MONTHS 07/24/2020 01/23/2020, 11/07/2019, 08/09/2019, Additional history exists CKD GFR USE SMARTSET 03949 11/06/202005/06, 03/13/2020, 03/07/2020, Additional history exists DIABETES-FOOT EXAM 11/07/2020 11/07/2019, 0 01/01/2019, 12/29/2017, Additional history exists CKD PHOS USE SMARTSET 03098 12/23/2020/, 11/07/2019, 12/29/2017, Additional history exists DIABETES-URINE MICROALBUMIN EVERY 12 MONTHS 12/23/2020 12/24/2019, 11/30/2019, 05/24/2019, Additional history exists Yearly B-12 01/22/2021 01/23/2020, 02/24, 05/16/2018 DIABETES-EYE EXAM 04/07/2021 04/07/2020, , 02/24/2010 (Done elsewhere), Additional history exists CKD HGB USE SMARTSET 97731 05/06/202105/06, 03/13/2020, 11/30/2019, Additional history exists BREAST [...] Diagnoses Diagnosis Spinal stenosis of lumbar region with neurogenic claudication- Primary Spinal stenosis, lumbar region, with neurogenic claudication documented in this encounter Advance Directives Documents on File Type Date Recorded Patient Floor Molder Expl 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
--- OUTSIDE RECORDS SUMMARY | 2023-06-01 05:15 | External Medical Summary | Summary of Care ---
Author Name Unknown Organization [place] [address] Care Team Providers Care Rotary Dryer Operator Name Role Phone Whiteside Kevin Ocampomelinda Primary Care Provider Reason for Visit * Reason Comments [facility]: Maintenance Encounter Details Date Type Department Care Team Description 10/07/2020 [facility] Visit [facility] [address] [place] [address] Rema Real, ELISABET [address] [facility] [place] [address] [phone] Allergies Active Allergy Reactions Severity Noted Date [...] MG TabletIndications:Chr onic diastolic congestive heart failure ([facility] [...] XL)Indications:Mild episode of recurrent major depressive disorder ([facility]) Take 1 Tab by mouth [...] Progress Notes * Rema Real LSW - 10/07/2020 9:55 AM EST STEFANY met with Stephanie for follow up and supportive visit. STEFANY assessed report of depression. Stephanie reports she was feeling "pretty' depressed when she met with Vera ELLIOTT CM. She reports feeling better today. She attributes depressed feelings r/t pandemic, social isolation, not being able to see familyand winter season which she says contributes to seasonal affective disorder. She reports she did buy a special light to provide the sunlight exposure which should decrease symptoms of SAD. She reports depression manifests itself in lack of motivation and insomnia. She reports she is sleeping okay right now. She reports she is going to PT, goes to store twice a week, visits with family on phone and talks to neighbors as way to connect to others. STEFANY offered counseling as option for her to addressfeelings of depression but she is not interested at this time. STEFANY did address need for assist to clean. There are no financial support services which will help with cleaning. STEFANY discussed options and gave Stephanie the [employer] book. She says she has money and is willing to hire assist one time a month to help with cleaning. STEFANY also discussed finding someone in [place] support. Also gave her names of agencies that might be less expensive or more efficient in implementing work. Stephanie reports health issues impacting are her Fibromyalgia, back pain and high BS. She is working with [facility] and pharmacy on these issues. STEFANY provided Stephanie support and will visit next month. documented in this encounter Plan of Treatment Upcoming Encounters Date Type Specialty Care Team Description 10/10/2020 Telemedicine Pain Management Cousins, Raj Nolen DO [address] [place] [address] [phone] 10/21/2020 Home Visit Family Medicine Magaly Morales, Community Health Social Media Intern [address] [place] [address] [phone] 11/06/2020 Home Visit [facility] Vera Capellan RN [address] [place] [address] [phone] 11/11/2020 Home Visit [facility] Rema Real LSW [address] [place] [address] [phone] 11/13/2020 Office Visit Family Medicine Kevin Whiteside, 132 [facility] [place] [address] [phone] 11/19/2020 Office Visit Pharmacy [facility] [place] [address] [place] [address] 01/08/2021 Office Visit Orthopedics Zack Teague, [address] [place] [address] [phone] 02/02/2021 Office Visit Cardiology Rey Woodall MD [address] [place] [address] 03/18/2021 Office Visit Nephrology Erik Lenz MD [address] [place] [address], [place] [address] [phone] 08/18/2021 Office Visit Pulmonary Celsa Tafoya CRNP 132 [facility] [place] [address] [phone] Health Maintenance Due Date Last Done Comments Zoster Vaccines (3 of 3) 01/02/2020 11/07/2019, 11/24 Pneumococcal Vaccine: 65+ Years (1 of 1 - PPSV23) 2020 08/22/2009, 06/15/2006 DIABETES-HGBA1C EVERY 6 MONTHS 07/24/2020 01/23/2020, 11/07/2019, 08/09/2019, Additional history exists CKD GFR USE SMARTSET 77804 11/06/202005/06, 03/13/2020, 03/07/2020, Additional history exists DIABETES-FOOT EXAM 11/07/2020 11/07/2019, 0 01/01/2019, 12/29/2017, Additional history exists CKD PHOS USE SMARTSET 49978 12/23/2020 03/3 , 11/07/2019, 12/29/2017, Additional history exists DIABETES-URINE MICROALBUMIN EVERY 12 MONTHS 12/23/2020 12/24/2019, 11/30/2019, 05/24/2019, Additional history exists Yearly B-12 01/22/2021 01/23/2020, 02/24, 05/16/2018 DIABETES-EYE EXAM 04/07/2021 04/07/2020, , 02/24/2010 (Done elsewhere), Additional history exists CKD HGB USE SMARTSET 96195 05/06/202105/06, 03/13/2020, 11/30/2019, Additional history exists BREAST [...] Documents on File Type Date Recorded Patient Casting Inspector Expl 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
--- OUTSIDE RECORDS SUMMARY | 2023-06-01 05:15 | External Medical Summary | Summary of Care ---
Author Name Unknown Organization [place] [address] Care Team Providers Care Police Academy Program Coordinator Name Role Phone Stevo Kevin Ocampomelinda Primary Care Provider Reason for Visit * Reason Onset Date Comments Appointment 10/02/2020 Encounter Details Date Type Department Care Team Description 10/02/2020 Telephone Dermatology [facility] [address] [place] [address] Apple Kaminski MD [address] [place], [place] [id number] Appointment Allergies Active Allergy Reactions Severity Noted Date Comments Codeine 07/08/2014 hallucination Pollen 05/18/2019 Heparin 09/04/2009 Heparin Induced Thrombocytopenia Hydrocodone Neuro complications (Please comment) 07/28/2020 Empagliflozin Other (Please comment) Medium 05/17/2018 3 yeast infections in 6 weeks after starting Morphine And Related 09/16/1997 Hallucinations Tetanus Toxoid Other (Please comment) 06/15/2011 Passed out documented as of this encounter (statuses as of 10/06/2020) Medications Medication Sig Dispensed Refills Start Date [...] MG TabletIndications:Chr onic diastolic congestive heart failure ([facility]) Take 2 Tabs by mouth [...] of 7.0%-8.0% ([facility]) Inject up to 30 units [...] as of this encounter (statuses as of 10/06/2020) Active Problems Problem Noted Date Spinal stenosis [...] as of this encounter (statuses as of 10/06/2020) Resolved Problems Problem Noted Date Resolved Date [...] as of this encounter (statuses as of 10/06/2020) Immunizations Name Administration Dates Next Due Pneumococcal [...] Telephone Encounter - Miranda Quick OSA - 10/03/2020 3:37 PM EST Called patient, left message to return call. * Telephone Encounter - Miranda Quick OSA - 10/02/2020 9:18 AM EST Called patient, left message to return call. May offer 10/13/[address] Kaminski. * Telephone Encounter - Miranda Quick OSA - 10/02/2020 9:17 AM EST ----- Message from ELISSA Kaufman sent at 10/02/2020 9:02 AM EST ----- Please assist with rescheduling. ----- Message ----- From: Vera Capellan RN Sent: 10/02/2020 8:57 AM EST To: , # Pt missed derm appt earlier this week. Can you please help her with rescheduling? Thank you! documented in this encounter Plan of Treatment Upcoming Encounters Date Type Specialty Care Team Description 10/07/2020 Home Visit [facility] Rema Real LSW [address] [place] [address] [phone] 10/10/2020 Telemedicine Pain Management Raj Ahn, [address] [place] [address] [phone] 10/21/2020 Home Visit Family Medicine Magaly Morales, Community Health Financial Planner [address] [place] [address] [phone] 11/06/2020 Home Visit [facility] Vera Capellan RN [address] [place] [address] [phone] 11/13/2020 Office Visit Family Medicine Kevin Whiteside DO [address] [place] [address] [phone] 11/19/2020 Office Visit [facility] [place] [address] [place] [address] 01/08/2021 Office Visit Orthopedics Zack Teague DO 132 [facility] [place] [address] [phone] 02/02/2021 Office Visit Cardiology Rey Woodall MD 132 [facility] [place] [address] [phone] 03/18/2021 Office Visit Nephrology Erik Lenz MD 200 [facility] [place] [address] [phone] 08/18/2021 Office Visit Pulmonary Celsa Tafoya CRNP 132 [facility] [place] [address] [phone] Health Maintenance Due Date Last Done Comments Zoster Vaccines (3 of 3) 01/02/2020 11/07/2019, 11/24 Pneumococcal Vaccine: 65+ Years (1 of 1 - PPSV23) 2020 08/22/2009, 06/15/2006 DIABETES-HGBA1C EVERY 6 MONTHS 07/24/2020 01/23/2020, 11/07/2019, 08/09/2019, Additional history exists CKD GFR USE SMARTSET 38935 11/06/202005/06, 03/13/2020, 03/07/2020, Additional history exists DIABETES-FOOT EXAM 11/07/2020 11/07/2019, 0 01/01/2019, 12/29/2017, Additional history exists CKD PHOS USE SMARTSET 98949 12/23/2020 03/, 11/07/2019, 12/29/2017, Additional history exists DIABETES-URINE MICROALBUMIN EVERY 12 MONTHS 12/23/2020 12/24/2019, 11/30/2019, 05/24/2019, Additional history exists Yearly B-12 01/22/2021 01/23/2020, 02/24, 05/16/2018 DIABETES-EYE EXAM 04/07/2021 04/07/2020, , 02/24/2010 (Done elsewhere), Additional history exists CKD HGB USE SMARTSET 85337 05/06/202105/06, 03/13/2020, 11/30/2019, Additional history exists BREAST [...] on File Type Date Recorded Patient Egg Caser Expl 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
--- OUTSIDE RECORDS SUMMARY | 2023-06-01 05:15 | External Medical Summary | Summary of Care ---
Author Name Unknown Organization [place] [address] Care Team Providers Care Tissue Inserter Name Role Phone Stevo Kevin Ocampomelinda Primary Care Provider Encounter Details Date Type Department Care Team Description 10/21/2020 Telephone Care Coordination [address] [place] [address] Magaly Morales, Community Health Caddie Supervisor [address], [place] [id number] Allergies Active Allergy Reactions Severity Noted Date [...] Reported on 07/17/2020 Blood Glucose Monitoring Suppl (Plexx ULTRA 2) w/Device KIT Use to test BG values 1 Kit 0 05/20/2020 Active Glucose Blood (ONETOUCH ULTRA BLUE) STRP Check sugars 3-4 times daily, E11.9 400 Strip 3 05/22/2020 Active TRULICITY 1.5 MG/0.5ML SOPNIndications:DM type 2 nursing care encounter (HCC),Uncontrolled type 2 diabetes mellitus with stage 3 chronic kidney disease, with long-term current use of insulin ([facility]) inject 1.5mg (one pen) under the [...] ([facility]) Take 1 Tab by mouth daily. 30 Tab 5 07/01/2020 Active NovoLOG FlexPen 100 UNIT/ML Subcutaneous Solution Pen-injector (insulin aspart)Indications:Ty pe 2 diabetes mellitus with hemoglobin A1c goal of 7.0%-8.0% ([facility]) Inject up to 30 units with [...] 10/14/2014 Overview: ICD-10 update of inactive term Gifford filter in place 08/19/2014 History of pulmonary [...] Telephone Encounter - Magaly Morales Community Health Caddie Supervisor - 10/21/2020 10:10 AM EST Patient requesting appointment be moved to Tuesday at 2pm documented in this encounter Plan of Treatment Upcoming Encounters Date Type Specialty Care Team Description 10/24/2020 Home Visit Family Medicine Magaly Morales, Community Health Caddie Supervisor [address] [place] [address] [phone] 10/27/2020 Office Visit Dermatology Apple Kaminski MD 200 [facility] [place] [place] [address] [phone] 11/06/2020 [facility] Visit [facility] Vera Capellan RN [address] [place] [address] [phone] 11/11/2020 Home Visit [facility] Rema Real LSW [address] [place] [address] [phone] 11/13/2020 Office Visit Family Medicine [facility] Whiteside, [facility] [place] [address] [phone] 11/19/2020 Office Visit Pharmacy [facility] [address] [place] [address] 01/08/2021 Office Visit Orthopedics Zack Teague, [address] [place] [address] [phone] 02/02/2021 Office Visit Cardiology Rey Woodall MD [address] [place] [address] [phone] 03/18/2021 Office Visit Nephrology Erik Lenz MD 200 [facility] [place] [place] [address] [phone] 08/18/2021 Office Visit Pulmonary Celsa Tafoya CRNP [address] [place] [address] [phone] Health Maintenance Due Date Last Done Comments Zoster Vaccines (3 of 3) 01/02/2020 11/07/2019, 11/24 Pneumococcal Vaccine: 65+ Years (1 of 1 - PPSV23) 2020 08/22/2009, 06/15/2006 DIABETES-HGBA1C EVERY 6 MONTHS 07/24/2020 01/23/2020, 11/07/2019, 08/09/2019, Additional history exists CKD GFR USE SMARTSET 39085 11/06/202005/06, 03/13/2020, 03/07/2020, Additional history exists DIABETES-FOOT EXAM 11/07/2020 11/07/2019, 0 01/01/2019, 12/29/2017, Additional history exists CKD PHOS USE SMARTSET 04100 12/23/2020 03/, 11/07/2019, 12/29/2017, Additional history exists DIABETES-URINE MICROALBUMIN EVERY 12 MONTHS 12/23/2020 12/24/2019, 11/30/2019, 05/24/2019, Additional history exists Yearly B-12 01/22/2021 01/23/2020, 02/24, 05/16/2018 DIABETES-EYE EXAM 04/07/2021 04/07/2020, , 02/24/2010 (Done elsewhere), Additional history exists CKD HGB USE SMARTSET 70456 05/06/202105/06, 03/13/2020, 11/30/2019, Additional history exists BREAST [...] Documents on File Type Date Recorded Patient Grill Chef Expl 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
--- OUTSIDE RECORDS SUMMARY | 2023-06-01 05:15 | External Medical Summary | Summary of Care ---
Author Name Unknown Organization [place] [address] Care Team Providers Care Register Of Deeds Name Role Phone Kevin Whiteside DO Primary Care Provider Reason for Visit * Reason Comments eRx-Medication Refill Encounter Details Date Type Department Care Team Description 10/02/2020 Refill Family Practice [facility] [address] [place] [address] Kevin Whiteside DO [address] [facility] [place] [address] [phone] Anxiety state Allergies Active Allergy Reactions Severity [...] 0 0 Active gabapentin (NEURONTIN) 300 MG CapsuleIndications: Type 2 diabetes mellitus with hemoglobin A1c goal of 7.0%-8.0% (HCC) TAKE ONE CAPSULE BY MOUTH THREE TIMES DAILY 270 Cap 0 0 Active Additional Information Patient taking differently: 300 mg Oral TID, Taking 300mg in am and 600mg in pm, Reported on 07/17/2020 Blood Glucose Monitoring Suppl (Pegasus BiologicsTOUCH ULTRA 2) w/Device KIT Use to test [...] TabletIndications:C hronic diastolic congestive heart failure ([facility]) Take 2 Tabs by mouth daily. 180 Tab 3 0 Active Additional Information Patient taking differently: 40 mg Oral BID, Reported on 06/13/2020 colchicine 0.6 MG TabletIndications:L eukocytoclastic vasculitis ([facility]) Take 1/2 [...] major depressive disorder ([facility]) Take 1 Tab by mouth [...] day. 0 0 Active First-Mouthwash BLM Mouth/Throat SuspensionIndicatio [...] AT BEDTIME 90 Cap 1 0 Active clonazePAM 0.5 MG Oral Tablet (KlonoPIN)Indicatio ns:Anxiety state TAKE ONE TABLET BY MOUTH TWICE DAILY 60 Tab 0 1 Active DULoxetine HCl 30 MG Oral [...] Active traMADol HCl 50 MG Oral Tablet (ULTRAM)Indications :Chronic pain syndrome Take 1 Tab by mouth every 8 hours as needed for Pain, Severe. 90 Tab 0 1 Active clonazePAM 0.5 MG Oral Tablet (KlonoPIN)Indicatio ns:Anxiety state Take 1 Tab by mouth 2 times a day. 60 Tab 0 0 10/03/19 21 Discontinued documented as of this encounter [...] encounter Miscellaneous Notes * Telephone Encounter - Sanjiv Tolliver DO - 10/03/2020 7:06 PM EST Signed Prescriptions: Disp Refills clonazePAM 0.5 MG Oral Tablet (KlonoPIN) 60 Tab 0 Sig: TAKE ONE TABLET BY MOUTH TWICE DAILY Authorizing Provider: SANJIV TOLLIVER Refused Prescriptions: Disp Refills DULoxetine HCl 30 MG Oral Capsule Delayed *90 Cap 0 Sig: TAKE ONE CAPSULE BY MOUTH DAILY. take with 60mg capsule for total of 90mg R efused By: IVY SANTILLAN Reason for Refusal: Duplicate Request * Telephone Encounter - Ivy Santillan [facility] - 10/03/2020 9:05 AM EST Pending Prescriptions: Disp Refills clonazePAM 0.5 MG Oral Tablet (KlonoPIN) *60 Tab 0 Sig: TAKE ONE TABLET BY MOUTH TWICE DAILY Refused Prescriptions: Disp Refills DULoxetine HCl 30 MG Oral Capsule Delayed *90 Cap 0 Sig: TAKE ONE CAPSULE BY MOUTH DAILY. take with 60mg capsule for total of 90mg Refused By: IVY SANTILLAN Reason for Ref usal: Duplicate Request * Telephone Encounter - Ivy Santillan [facility] - 10/03/2020 9:03 AM EST I have reviewed the patients controlled substance dispensing history in the Prescription Drug Monitoring Program in compliance with the [facility] regulations before prescribing a controlled substance. PDMP checked on 10/03/2020. Pending Prescriptions: Disp Refills DULoxetine HCl 30 MG Oral Capsule Delayed*90 Cap 0 Sig: TAKE ONE CAPSULE BY MOUTH DAILY. take with 60mg capsule for total of 90mg clonazePAM 0.5 MG Oral Tablet (KlonoPIN) *60 Tab 0 Sig: TAKE ONE TABLET BY MOUTH TWICE DAILY Last Office/Telemedicine Visit: 09/04/2020 Next Office Visit: 11/13/2020 Scheduled Provider(s): Kevin Whiteside, Date medication was last filled: 08/26/20 Date medication is due for refill: Pharmacy: [id number] Is this request for a controlled substance?Yes and Urine Drug Screen not completed Toxicology results: No results found. However, due to the size of the patient record, not all encounters were searched.Please check Results Review for a complete set of results. OPIOIDS/BENZO COMPLIANCE MONITORING W/INTERP Nessa Dt/Tm Resulted Value Low High Status COMPLIANCE INTERP ( ) 09/04/18 2:27P 09/08/18 (NOTE) F URINE DRUG SCREEN ( ) 09/04/18 2:27P 09/08/18 RESULT F AMPHETAMINES ( ) 09/04/18 2:27P 09/08/18 NEGATIVE F BARBITURATES ( ) 09/04/18 2:27P 09/08/18 NEGATIVE F BENZODIAZEPINES ( ) 09/04/18 2:27P 09/08/18 * F Value: REFER TO CONFIRMATION RESULT CANNABINOIDS ( ) 09/04/18 2:27P 09/08/18 NEGATIVE F COCAINE METABOLITE ( ) 09/04/18 2:27P 09/08/18 NEGATIVE F METHADONE METABOLITE ( ) 09/04/18 2:27P 09/08/18 NEGATIVE F MORPHINE / CODEINE ( ) 09/04/18 2:27P 09/08/18 NEGATIVE F OXYCODONE ( ) 09/04/18 2:27P 09/08/18 NEGATIVE F COMMENT ( ) 09/04/18 2:27P 09/08/18 F URINE VALID INTERP ( ) 09/04/18 2:27P 09/08/18 NORMAL F CREATININE JOHNNY (mg/dL) 09/04/18 2:27P 09/08/18 50 F NITRITE JOHNNY (ug/mL) 09/04/18 2:27P 09/08/18 20 F pH JOHNNY ( ) 09/04/18 2:27P 09/08/18 4.9 F Please approve if appropriate. Thank You, Ivy Santillan [facility] Pharmacist Telepharmacy 10/03/2020, 9:03 AM documented in this encounter Plan of Treatment Upcoming Encounters Date Type Specialty Care Team Description 10/07/2020 Home Visit [facility] Rema Real LSW [address] [place] [address] [phone] 10/10/2020 Telemedicine Pain Management Raj Ahn, DO [address] [place] [address] [phone] 10/21/2020 Home Visit Family Medicine Magaly Morales, Community Health Handcrew Foreman [address] [place] [address] [phone] 11/06/2020 [facility] Visit [facility] Vera Capellan RN [address] [place] [address] [phone] 11/13/2020 Office Visit Family Medicine Kevin Whiteside, [address] [address] [phone] 11/19/2020 Office Visit [facility]acy [facility] [place] [address] [place] [address] 01/08/2021 Office Visit Orthopedics Zack Teague, DO [address] [address] [phone] 02/02/2021 Office Visit Cardiology Rey Woodall MD [address] [place] [address] [phone] 03/18/2021 Office Visit Nephrology Erik Lenz MD [address] [place] [address] [phone] 08/18/2021 Office Visit Pulmonary Celsa Tafoya CRNP [address] [place] [address] [phone] Health Maintenance Due Date Last Done Comments Zoster Vaccines (3 of 3) 01/02/2020 11/07/2019, 11/24 Pneumococcal Vaccine: 65+ Years (1 of 1 - PPSV23) 2020 08/22/2009, 06/15/2006 DIABETES-HGBA1C EVERY 6 MONTHS 07/24/2020 01/23/2020, 11/07/2019, 08/09/2019, Additional history exists CKD GFR USE SMARTSET 46553 11/06/202005/06, 03/13/2020, 03/07/2020, Additional history exists DIABETES-FOOT EXAM 11/07/2020 11/07/2019, 0 01/01/2019, 12/29/2017, Additional history exists CKD PHOS USE SMARTSET 49455 12/23/2020/, 11/07/2019, 12/29/2017, Additional history exists DIABETES-URINE MICROALBUMIN EVERY 12 MONTHS 12/23/2020 12/24/2019, 11/30/2019, 05/24/2019, Additional history exists Yearly B-12 01/22/2021 01/23/2020, 02/24, 05/16/2018 DIABETES-EYE EXAM 04/07/2021 04/07/2020, , 02/24/2010 (Done elsewhere), Additional history exists CKD HGB USE SMARTSET 40088 05/06/202105/06, 03/13/2020, 11/30/2019, Additional history exists BREAST [...] Documents on File Type Date Recorded Patient Central Sterile Supply Technician Expl 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
--- OUTSIDE RECORDS SUMMARY | 2023-06-01 05:15 | External Medical Summary | Summary of Care ---
Author Name Unknown Organization [place] [address] Care Team Providers Care Provider Relations 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 Name Role Phone Kevin Whiteside DO Primary Care Provider Reason for Visit * Reason Onset Date Comments [facility]: Maintenance 10/03/2020 Encounter Details Date Type Department Care Team Description 10/03/2020 Scheduled Telephone [facility], [facility] [address] [place] [address] Coordinator, [facility] [address] [place] [address] [phone] Allergies Active Allergy Reactions Severity Noted Date [...] care encounter ([facility]),Uncontrolled type 2 diabetes mellitus with stage 3 chronic kidney disease, with long-term current use of insulin ([facility]) inject 1.5mg (one pen) under the skin once weekly 6 mL 1 05/27/2020 Active furosemide (LASIX) 40 MG TabletIndications:Chr onic diastolic congestive heart failure ([facility]) Take 2 Tabs by mouth daily. [...] disorder ([facility]) Take 1 Tab by mouth daily. 30 Tab 5 07/01/2020 Active NovoLOG FlexPen 100 UNIT/ML Subcutaneous Solution Pen-injector (insulin aspart)Indications:Ty pe 2 diabetes mellitus with hemoglobin A1c goal of 7.0%-8.0% ([facility]) Inject up to 30 units with [...] Telephone Encounter - Lisandra Thomas LPN - 10/03/2020 1:47 PM EST Left message requesting return call. Provided call back number . documented in this encounter Plan of Treatment Upcoming Encounters Date Type Specialty Care Team Description 10/07/2020 Home Visit [facility] Rema Real, WEBSITE ADMIN [address] [place] [address] [phone] 10/10/2020 Telemedicine Pain Management Cousins, Raj Callum, DO [address] [place] [address] [phone] 10/21/2020 Home Visit Family Medicine Magaly Morales, Community [facility] Electrophysiology Technologist [address] [place] [address] 11/06/2020 Home Visit [facility] Vera Capellan RN [address] [place] [address] [phone] 11/13/2020 Office Visit Family Medicine Kevin Whiteside, [address] [place] [address] [phone] 11/19/2020 Office Visit Pharmacy [facility] [place] [address] [place] [address] 01/08/2021 Office Visit Orthopedics Zack Teague, DO [address] [place] [address] [phone] 02/02/2021 Office Visit Cardiology Rey Woodall MD [address] [place] [address] [phone] 08/18/2021 Office Visit Pulmonary Celsa Tafoya CRNP [address] [place] [address] [phone] Health Maintenance Due Date Last Done Comments Zoster Vaccines (3 of 3) 01/02/2020 11/07/2019, 11/24 Pneumococcal Vaccine: 65+ Years (1 of 1 - PPSV23) 2020 08/22/2009, 06/15/2006 DIABETES-HGBA1C EVERY 6 MONTHS 07/24/2020 01/23/2020, 11/07/2019, 08/09/2019, Additional history exists CKD GFR USE SMARTSET 94132 11/06/202005/06, 03/13/2020, 03/07/2020, Additional history exists DIABETES-FOOT EXAM 11/07/2020 11/07/2019, 0 01/01/2019, 12/29/2017, Additional history exists CKD PHOS USE SMARTSET 59698 12/23/2020 03/3 , 11/07/2019, 12/29/2017, Additional history exists DIABETES-URINE MICROALBUMIN EVERY 12 MONTHS 12/23/2020 12/24/2019, 11/30/2019, 05/24/2019, Additional history exists Yearly B-12 01/22/2021 01/23/2020, 02/24, 05/16/2018 DIABETES-EYE EXAM 04/07/2021 04/07/2020, , 02/24/2010 (Done elsewhere), Additional history exists CKD HGB USE SMARTSET 66886 05/06/202105/06, 03/13/2020, 11/30/2019, Additional history exists BREAST [...] Documents on File Type Date Recorded Patient Phosphatic Fertilizer Supervisor Expl 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
--- OUTSIDE RECORDS SUMMARY | 2023-06-01 05:16 | External Medical Summary | Summary of Care ---
Author Name Unknown Organization [place] [address] Care Team Providers Care Admission Discharge Rn Name Role Phone Migue Whiteside DO Primary Care Provider Reason for Visit * Reason Comments eRx-Medication Refill Encounter Details Date Type Department Care Team Description 09/12/2020 Refill Family Practice [facility] [address] [place] [address] Migue Whiteside DO [address] [facility] [place] [address] [phone] POSTSURGICAL HYPOTHYROID Allergies Active Allergy Reactions Severity Noted Date Comments Codeine 07/08/2014 hallucination Pollen 05/18/2019 Heparin 09/04/2009 Heparin Induced Thrombocytopenia Hydrocodone Neuro complications (Please comment) 07/28/2020 Empagliflozin Other (Please comment) Medium 05/17/2018 3 yeast infections in 6 weeks after starting Morphine And Related 09/16/1997 Hallucinations Tetanus Toxoid Other (Please comment) 06/15/2011 Passed out documented as of this encounter (statuses as of 09/16/2020) Medications Medication Sig Dispensed Refills Start Date [...] as directed 400 Each 3 0 Active Nortriptyline HCl (PAMELOR) 50 MG CapsuleIndications: Fibromyalgia Take 1 Cap by mouth at bedtime. 90 Cap 3 0 Active traZODone (DESYREL) 50 MG [...] per week 30 Tab 3 0 Active DULoxetine (CYMBALTA) 60 MG CPEPIndications:Fib romyalgia,Moderate episode of recurrent major depressive disorder (HCC),Primary osteoarthritis of both knees Take 1 Cap by mouth daily. Along with 30 mg capsule to total 90 mg daily. 90 Cap 3 0 Active rOPINIRole (REQUIP) 2 MG [...] hemoglobin A1c goal of 7.0%-8.0% ([facility]) TAKE ONE CAPSULE BY MOUTH THREE TIMES DAILY 270 Cap 0 0 Active Additional Information Patient taking differently: 300 mg Oral TID, Taking 300mg in am and 600mg in pm, Reported on 07/17/2020 Blood Glucose Monitoring Suppl (GCW ULTRA 2) w/Device KIT Use to test BG values 1 Kit 0 0 Active Glucose Blood (ONETOUCH ULTRA BLUE) STRP Check sugars 3-4 times daily, E11.9 400 Strip 3 0 Active TRULICITY 1.5 MG/0.5ML SOPNIndications:DM type 2 nursing care encounter ([facility]),Uncontrolled type 2 diabetes mellitus with stage 3 chronic kidney disease, with long-term current use of insulin ([facility]) inject 1.5mg (one pen) under the skin once weekly 6 mL 1 0 Active furosemide (LASIX) 40 MG TabletIndications:C hronic diastolic congestive heart failure ([facility]) Take 2 Tabs by mouth daily. 180 Tab 3 0 Active Additional Information Patient taking differently: 40 mg Oral BID, Reported on 06/13/2020 colchicine 0.6 MG TabletIndications:L eukocytoclastic vasculitis ([facility]) Take 1/2 tab daily [...] a day. 237 mL 1 0 Active traMADol HCl 50 MG Oral Tablet (ULTRAM)Indications :Chronic pain syndrome Take 1 Tab by mouth every 8 hours as needed for Pain, Severe. 90 Tab 0 0 Active clonazePAM 0.5 MG Oral Tablet (KlonoPIN)Indicatio ns:Anxiety state Take 1 Tab by mouth 2 times a day. 60 Tab 0 0 Active Cyclobenzaprine HCl 10 [...] 25 MCG Oral Tablet (LEVOXYL)Indication s:Postsurgical hypothyroidism TAKE ONE TABLET BY MOUTH IN THE MORNING AT LEAST 30 MINUTES PRIOR TO BREAKFAST OR OTHER MEDS 90 Tab 1 0 Active DULoxetine HCl 30 MG Oral Capsule Delayed Release Particles (CYMBALTA) TAKE ONE CAPSULE BY MOUTH DAILY. take with 60mg capsule for total of 90mg 90 Cap 1 0 Active levothyroxine (LEVOXYL) 200 MCG TabletIndications:P ostsurgical hypothyroidism TAKE ONE TABLET BY MOUTH EVERY DAY AT LEAST 30 MINUTES BEFORE BREAKFAST OR OTHER MEDS 90 Tab 3 0 09/16/20 20 Discontinued levothyroxine (LEVOXYL) 25 MCG TabletIndications:P ostsurgical hypothyroidism TAKE ONE TABLET BY MOUTH IN THE MORNING AT LEAST 30 MINUTES PRIOR TO BREAKFAST OR OTHER MEDS 90 Tab 1 0 09/16/20 20 Discontinued DULoxetine (CYMBALTA) 30 MG CPEP Take 1 Cap by mouth daily. Take along with the 60mg dose for totally of 90mg daily. Do not cut, crush or chew 90 Cap 3 0 09/16/20 20 Discontinued documented as of this encounter (statuses as of 09/16/2020) Active Problems Problem Noted Date Spinal stenosis [...] as of this encounter (statuses as of 09/16/2020) Resolved Problems Problem Noted Date Resolved Date [...] as of this encounter (statuses as of 09/16/2020) Immunizations Name Administration Dates Next Due Pneumococcal [...] encounter Miscellaneous Notes * Telephone Encounter - Anne Burroughs RP - 09/16/2020 6:17 AM EST Signed Prescriptions: Disp Refills Levothyroxine Sodium 200 MCG Oral Tablet (*90 Tab 1 Sig: TAKE ONE TABLET BY MOUTH IN THE MORNING AT LEAST 30 MINUTES PRIOR TO BREAKFAST OR OTHER MEDSAuthorizing Provider: MIGUE WHITESIDE User: ANNE BURROUGHS Levothyroxine Sodium 25 MCG Oral Tablet (L*90 Tab 1 Sig: TAKE ONE TABLET BY MOUTH IN THE MORNING AT LEAST 30 MINUTES PRIORTO BREAKFAST OR OTHER MEDSAuthorizing Provider: MIGUE WHITESIDE User: EVELIO BURROUGHS DULoxetine HCl 30 MG Oral Capsule Delayed *90 Cap 1 Sig: TAKE ONE CAPSULE BY MOUTH DAILY. take with 60mg capsule for total of 90mgAuthorizing Provider: MIGUE WHITESIDE User: ANNE BURROUGHS * Telephone Encounter - Anne Burroughs RPh - 09/16/2020 6:09 AM EST 05/06 elevated tsh but noted as stable Thank you, Anne Burroughs [facility] Clinical Pharmacist Telepharmacy [phone] 09/16/2020, 6:17 AM documented in this encounter Plan of Treatment Upcoming Encounters Date Type Specialty Care Team Description 09/17/2020 Office Visit Pharmacy [facility] [place] [address] [place] [address] 09/29/2020 Shade Matcher [facility] Rema Real LSW [address] [place] [address] [phone] 09/30/2020 Office Visit Dermatology Apple Kaminski MD [address] [place] [place] [address] [phone] 10/01/2020 Imaging Radiology 10/02/2020 Home Visit [facility] Vera Capellan RN [address] [place] [address] [phone] 10/03/2020 Telemedicine Nephrology Erik [place] MD [address] [place] [address] [phone] 10/10/2020 Telemedicine Pain Management Raj Ahn, DO [address] [place] [address] [phone] 11/13/2020 Office Visit Family Medicine Migue Whiteside, DO [address] [place] [address] [phone] 01/08/2021 Office Visit Orthopedics Zack Teague, DO [address] [place] [address] [phone] 02/02/2021 Office Visit Cardiology Rey Woodall MD [address] [place] [address] [phone] 08/18/2021 Office Visit Pulmonary Celsa Tafoya CRNP [address] [place] [address] [phone] Health Maintenance Due Date Last Done Comments Zoster Vaccines (3 of 3) 01/02/2020 11/07/2019, 11/24 Pneumococcal Vaccine: 65+ Years (1 of 1 - PPSV23) 2020 08/22/2009, 06/15/2006 BREAST CANCER SCREENING DISCUSSION YEARLY AGES 40-75 07/10/2020 07/10/2019, 06/23/2018, 05/09/2015, Additional history exists DIABETES-HGBA1C EVERY 6 MONTHS 07/24/2020 01/23/2020, 11/07/2019, 08/09/2019, Additional history exists CKD GFR USE SMARTSET 41538 11/06/202005/06, 03/13/2020, 03/07/2020, Additional history exists DIABETES-FOOT EXAM 11/07/2020 11/07/2019, 0 01/01/2019, 12/29/2017, Additional history exists CKD PHOS USE SMARTSET 83616 12/23/202011/26, 11/07/2019, 12/29/2017, Additional history exists DIABETES-URINE MICROALBUMIN EVERY 12 MONTHS 12/23/2020 12/24/2019, 11/30/2019, 05/24/2019, Additional history exists Yearly B-12 01/22/2021 01/23/2020, 02/24, 05/16/2018 DIABETES-EYE EXAM 04/07/2021 04/07/2020, , 02/24/2010 (Done elsewhere), Additional history exists CKD HGB USE SMARTSET 73333 05/06/202105/06, 03/13/2020, 11/30/2019, Additional history exists *DEPRESSION SCREENING,ANNUAL FOR PTS [...] Visit Diagnoses Diagnosis POSTSURGICAL HYPOTHYROID Postsurgical hypothyroidism documented in this encounter Advance Directives Documents on File Type Date Recorded Patient Corporate Treasury Analyst Expl 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
--- OUTSIDE RECORDS SUMMARY | 2023-06-01 05:16 | External Medical Summary | Summary of Care ---
Author Name Unknown Organization [place] [address] Care Team Providers Care Scrubber System Attendant Name Role Phone Kevin Whiteside DO Primary Care Provider Reason for Visit * Reason Comments eRx-Medication Refill Encounter Details Date Type Department Care Team Description 09/16/2020 Refill Family [address] [facility] [address] [place] [place] [address] Kevin Whiteside DO [address] [facility] [place] [address] [phone] POSTSURGICAL HYPOTHYROID Allergies Active Allergy Reactions Severity Noted Date Comments Codeine 07/08/2014 hallucination Pollen 05/18/2019 Heparin 09/04/2009 Heparin Induced Thrombocytopenia Hydrocodone Neuro complications (Please comment) 07/28/2020 Empagliflozin Other (Please comment) Medium 05/17/2018 3 yeast infections in 6 weeks after starting Morphine And Related 09/16/1997 Hallucinations Tetanus Toxoid Other (Please comment) 06/15/2011 Passed out documented as of this encounter (statuses as of 09/20/2020) Medications Medication Sig Dispensed Refills Start Date [...] as directed 400 Each 3 12/18/2019 Active Nortriptyline HCl (PAMELOR) 50 MG CapsuleIndications:Fi bromyalgia Take 1 Cap by mouth at bedtime. 90 Cap 3 12/18/2019 Active traZODone (DESYREL) 50 MG [...] per week 30 Tab 3 02/26/2020 Active DULoxetine (CYMBALTA) 60 MG CPEPIndications:Fibro myalgia,Moderate episode of recurrent major depressive disorder (HCC),Primary osteoarthritis of both knees Take 1 Cap by mouth daily. Along with 30 mg capsule to total 90 mg daily. 90 Cap 3 03/13/2020 Active rOPINIRole (REQUIP) 2 MG TabletIndications:Res tless [...] Reported on 07/17/2020 Blood Glucose Monitoring Suppl (VoloAgri GroupTOUCH ULTRA 2) w/Device KIT Use to [...] a day. 237 mL 1 07/28/2020 Active traMADol HCl 50 MG Oral Tablet (ULTRAM)Indications:C hronic pain syndrome Take 1 Tab by mouth every 8 hours as needed for Pain, Severe. 90 Tab 0 08/26/2020 Active clonazePAM 0.5 MG Oral Tablet (KlonoPIN)Indications [...] BREAKFAST OR OTHER MEDS 90 Tab 1 09/16/2020 Active Levothyroxine Sodium 25 MCG Oral Tablet (LEVOXYL)Indications: Postsurgical hypothyroidism TAKE ONE TABLET BY MOUTH IN THE MORNING AT LEAST 30 MINUTES PRIOR TO BREAKFAST OR OTHER MEDS 90 Tab 1 09/16/2020 Active DULoxetine HCl 30 MG Oral Capsule Delayed Release Particles (CYMBALTA) TAKE ONE CAPSULE BY MOUTH DAILY. take with 60mg capsule for total of 90mg 90 Cap 1 09/16/2020 Active documented as of this encounter (statuses as of 09/20/2020) Active Problems Problem Noted Date Spinal stenosis [...] as of this encounter (statuses as of 09/20/2020) Resolved Problems Problem Noted Date Resolved Date [...] as of this encounter (statuses as of 09/20/2020) Immunizations Name Administration Dates Next Due Pneumococcal [...] encounter Miscellaneous Notes * Telephone Encounter - German Dick, [facility] - 09/20/2020 9:14 AM EST Refused Prescriptions: Disp Refills Levothyroxine Sodium 25 MCG Oral Tablet (L*90 Tab 0 Sig: TAKE ONE TABLET BY MOUTH IN THE MORNING AT LEAST 30 MINUTES PRIOR TO BREAKFAST OR OTHER MEDS Refused By: GERMAN DICK Reason for Refusal: Duplicate Request Reason for Refusal Comment: Just approved within last week Levothyroxine Sodium 200 MCG Oral Tablet (*90 Tab 0 Sig: TAKE ONE TABLET BY MOUTH EVERY DAY AT LEAST 30 MINUTES BEFORE BREAKFAST OR OTHER MEDS Refused By: GERMAN DICK Reason for Refusal: Duplicate Request Reason for Refusal Comment: Just approved within last week Electronically signed by German Dick [facility] at 09/20/2020 9:14 AM EST * Telephone Encounter - German Dick [facility] - 09/20/2020 9:14 AM EST Patient's TSH is HIGH but free T4 is in normal range TSH Results: TSH(uIU/mL) Nessa Dt/Tm Resulted Value Status 05/06/20 8:46A 05/06/20 5.35* FINAL T4 Results: FREE T4 REFLEXIVE(ng/dL) Nessa Dt/Tm Resulted Value Status 05/06/20 8:46A 05/06/20 1.36 FINAL T4, FREE(ng/dL) Nessa Dt/Tm Resulted Value Status 06/16/11 5:24A 06/16/11 1.58 FINAL Refills approved Thanks and have a great day, German Dick Clinical Pharmacist Pharmacy Refill Call Center 09/20/2020, 9:14 AM Electronically signed by German Dick [facility] at 09/20/2020 9:14 AM EST documented in this encounter Plan of Treatment Upcoming Encounters Date Type Specialty Care Team Description 09/29/2020 Geochemical Manager [facility] Rema Real LSW [address] [place] [address] [phone] 09/30/2020 Office Visit Dermatology Apple Kaminski [facility] [address] [place] [address] [phone] 10/01/2020 Imaging Radiology 10/02/2020 Home Visit [facility] Vera Capellan RN [address] [place] [address] [phone] 10/03/2020 [facility]medicine [facility]phrology [facility] [place] [facility] [address] [facility] [address] [phone] 10/10/2020 Telemedicine Pain Management Raj Ahn, DO [address] [place] [address] [phone] 11/13/2020 Office Visit Family Medicine Kevin Whiteside, [address] [place] [address] [phone] 11/19/2020 Office Visit Pharmacy [facility] [place] [address] [place] [address] 01/08/2021 Office Visit Orthopedics Zack Teague, DO [address] [place] [address] [phone] 02/02/2021 Office Visit Cardiology Rey Woodall MD [address] [place] [address] [phone] 08/18/2021 Office Visit Pulmonary Celsa Tafoya CRNP [address] [place] [address] [phone] Health Maintenance Due Date Last Done Comments Zoster Vaccines (3 of 3) 01/02/2020 11/07/2019, 11/24 Pneumococcal Vaccine: 65+ Years (1 of 1 - PPSV23) 2020 08/22/2009, 06/15/2006 BREAST CANCER SCREENING DISCUSSION YEARLY AGES 40-75 07/10/2020 07/10/2019, 06/23/2018, 05/09/2015, Additional history exists DIABETES-HGBA1C EVERY 6 MONTHS 07/24/2020 01/23/2020, 11/07/2019, 08/09/2019, Additional history exists CKD GFR USE SMARTSET 76678 11/06/202005/06, 03/13/2020, 03/07/2020, Additional history exists DIABETES-FOOT EXAM 11/07/2020 11/07/2019, 0 01/01/2019, 12/29/2017, Additional history exists CKD PHOS USE SMARTSET 92471 12/23/2020 03/, 11/07/2019, 12/29/2017, Additional history exists DIABETES-URINE MICROALBUMIN EVERY 12 MONTHS 12/23/2020 12/24/2019, 11/30/2019, 05/24/2019, Additional history exists Yearly B-12 01/22/2021 01/23/2020, 02/24, 05/16/2018 DIABETES-EYE EXAM 04/07/2021 04/07/2020, , 02/24/2010 (Done elsewhere), Additional history exists CKD HGB USE SMARTSET 61750 05/06/202105/06, 03/13/2020, 11/30/2019, Additional history exists *DEPRESSION [...] on File Type Date Recorded Patient Surgical Physician Assistant Expl 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
--- OUTSIDE RECORDS SUMMARY | 2023-06-01 05:16 | External Medical Summary | Summary of Care ---
Author Name Unknown Organization [place] [address] Care Team Providers Care Back Hoe Machine Operator Name Role Phone Migue Whiteside DO Primary Care Provider Reason for Visit * Reason Comments eRx-Medication Refill Encounter Details Date Type Department Care Team Description 09/22/2020 Refill Family Practice [facility] [address] [facility] [place] [address] Migue Whiteside DO [address] [facility] [place] [address] [phone] Fibromyalgia Allergies Active Allergy Reactions Severity Noted Date Comments Codeine 07/08/2014 hallucination Pollen 05/18/2019 Heparin 09/04/2009 Heparin Induced Thrombocytopenia Hydrocodone Neuro complications (Please comment) 07/28/2020 Empagliflozin Other (Please comment) Medium 05/17/2018 3 yeast infections in 6 weeks after starting Morphine And Related 09/16/1997 Hallucinations Tetanus Toxoid Other (Please comment) 06/15/2011 Passed out documented as of this encounter (statuses as of 09/23/2020) Medications Medication Sig Dispensed Refills Start Date [...] A1c goal of 7.0%-8.0% ([facility]) TAKE ONE CAPSULE BY MOUTH THREE TIMES DAILY 270 Cap 0 0 Active Additional Information Patient taking differently: 300 mg Oral TID, Taking 300mg in am and 600mg in pm, Reported on 07/17/2020 Blood Glucose Monitoring Suppl ([employer]OUCH ULTRA 2) w/Device KIT Use to test BG values 1 Kit 0 0 Active Glucose Blood (ONETOUCH ULTRA BLUE) STRP Check sugars 3-4 times daily, E11.9 400 Strip 3 0 Active TRULICITY 1.5 MG/0.5ML SOPNIndications:DM type 2 nursing care encounter ([facility]),Uncontrolled type 2 diabetes mellitus with stage 3 chronic kidney disease, with long-term current use of insulin ([facility]) inject 1.5mg (one pen) under the skin once weekly 6 mL 1 0 Active furosemide (LASIX) 40 MG TabletIndications:C hronic diastolic congestive heart failure ([facility]) Take 2 Tabs by mouth daily. 180 Tab 3 0 Active Additional Information Patient taking differently: 40 mg Oral BID, Reported on 06/13/2020 colchicine 0.6 MG TabletIndications:L eukocytoclastic vasculitis ([facility]) Take 1/2 tab daily 45 Tab 1 0 Active clobetasol propionate (TEMOVATE) 0.05 % creamIndications:Kalee rsoas planus Apply to rash on the hands [...] goal of 7.0%-8.0% ([facility]) Inject up to 30 units with meals [...] FOR SPASM 30 Tab 0 0 Active DULoxetine HCl 30 MG Oral Capsule Delayed Release Particles (CYMBALTA) TAKE ONE CAPSULE BY MOUTH DAILY. take with 60mg capsule for total of 90mg 90 Cap 1 0 Active Levothyroxine Sodium 200 MCG Oral [...] AT BEDTIME 90 Cap 1 0 Active Nortriptyline HCl (PAMELOR) 50 MG CapsuleIndications: Fibromyalgia Take 1 Cap by mouth at bedtime. 90 Cap 3 0 09/23/20 20 Discontinued documented as of this encounter (statuses as of 09/23/2020) Active Problems Problem Noted Date Spinal stenosis [...] Overview: ICD-10 update of inactive term [place] filter in place 08/19/2014 History of pulmonary embolus (PE) 2013 Statin intolerance 07/16/2014 HTN, goal below 130/80 02/22/2014 Venous insufficiency 02/07/2013 ELISSA (obstructive sleep apnea) 09/16/2011 Overview: CPAP 11 cwp Mild, AHI 11.3 but with significant nocturnal hypoxemia Dicks Postsurgical hypothyroidism 06/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 documented as of this encounter (statuses as of 09/23/2020) Resolved Problems Problem Noted Date Resolved Date [...] as of this encounter (statuses as of 09/23/2020) Immunizations Name Administration Dates Next Due Pneumococcal [...] Notes * Telephone Encounter - Rebecca Starr [facility] - 09/23/2020 6:20 PM EST Signed Prescriptions: Disp Refills Nortriptyline HCl 50 MG Oral Capsule (TRENT*90 Cap 1 Sig: TAKE ONE CAPSULE BY MOUTH AT BEDTIME Authorizing Provider: MIGUE WHITESIDE User: REBECCA STARR documented in this encounter Plan of Treatment Upcoming Encounters Date Type Specialty Care Team Description 09/29/2020 Tripe Finisher [facility]a Real, ELISABET [address] [place] [address] [phone] 09/30/2020 Office Visit Dermatology Apple Kaminski MD [address] [place] [address] [phone] 10/01/2020 Imaging Radiology 10/02/2020 Home Visit [facility] Vera Capellan RN [address] [place] [address] [phone] 10/03/2020 Telemedicine Nephrology Erik Lenz MD [address] [place] [address] [phone] 10/10/2020 Telemedicine Pain Management Raj Ahn, [address] [place] [address] [phone] 11/13/2020 Office Visit Family Medicine Migue Whiteside DO [address] [place] [address] [phone] 11/19/[address] [facility] [address] [place] [address] 01/08/2021 Office Visit Orthopedics Zack Teague DO [address] [place] [address] [phone] 02/02/2021 Office Visit Cardiology Rey Woodall MD [address] [place] [address] [phone] 08/18/2021 Office Visit Pulmonary Celsa Tafoya CRNP [address] [place] [address] [phone] Health Maintenance Due Date Last Done Comments Zoster Vaccines (3 of 3) 01/02/2020 11/07/2019, 11/24 Pneumococcal Vaccine: 65+ Years (1 of 1 - PPSV23) 2020 08/22/2009, 06/15/2006 BREAST CANCER SCREENING DISCUSSION YEARLY AGES 40-75 07/10/2020 07/10/2019, 06/23/2018, 05/09/2015, Additional history exists DIABETES-HGBA1C EVERY 6 MONTHS 07/24/2020 01/23/2020, 11/07/2019, 08/09/2019, Additional history exists CKD GFR USE SMARTSET 81610 11/06/202005/06, 03/13/2020, 03/07/2020, Additional history exists DIABETES-FOOT EXAM 11/07/2020 11/07/2019, 0 01/01/2019, 12/29/2017, Additional history exists CKD PHOS USE SMARTSET 01369 12/23/2020 03/, 11/07/2019, 12/29/2017, Additional history exists DIABETES-URINE MICROALBUMIN EVERY 12 MONTHS 12/23/2020 12/24/2019, 11/30/2019, 05/24/2019, Additional history exists Yearly B-12 01/22/2021 01/23/2020, 02/24, 05/16/2018 DIABETES-EYE EXAM 04/07/2021 04/07/2020, , 02/24/2010 (Done elsewhere), Additional history exists CKD HGB USE SMARTSET 71304 05/06/202105/06, 03/13/2020, 11/30/2019, Additional history exists *DEPRESSION [...] Documents on File Type Date Recorded Patient Civil Defense Director Expl 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
--- OUTSIDE RECORDS SUMMARY | 2023-06-01 05:16 | External Medical Summary | Summary of Care ---
Author Name Unknown Organization [facility] [address] Care Team Providers Care Electronic Prepress System Operator Name Role Phone Kevin Whiteside DO Primary Care Provider Reason for Visit * Reason Onset Date Comments Med Request 09/20/2020 Encounter Details Date Type Department Care Team Description 09/20/2020 Telephone Family Practice [facility] [address] [place] [address] Kevin Whitseide DO [address] [facility] [place] [id number] Med Request Allergies Active Allergy Reactions Severity [...] 12/18/2019 Active Nortriptyline HCl (PAMELOR) 50 MG CapsuleIndications: [...] 3 02/26/2020 Active DULoxetine (CYMBALTA) 60 MG CPEPIndications:Fib romyalgia,Moderate episode of recurrent major depressive disorder (HCC),Primary osteoarthritis of both knees Take 1 Cap by mouth daily. Along with 30 mg capsule to total 90 mg daily. 90 Cap 3 03/13/2020 Active rOPINIRole (REQUIP) 2 MG TabletIndications:R estless [...] 0 05/08/2020 Active gabapentin (NEURONTIN) 300 MG CapsuleIndications: Type 2 diabetes mellitus with hemoglobin A1c goal of 7.0%-8.0% ([facility]) TAKE ONE CAPSULE BY MOUTH THREE TIMES DAILY 270 Cap 0 05/20/2020 Active Additional Information Patient taking differently: 300 mg Oral TID, Taking 300mg in am and 600mg in pm, Reported on 07/17/2020 Blood Glucose Monitoring Suppl ([employer]CH ULTRA 2) w/Device KIT Use to test BG values 1 Kit 0 05/20/2020 Active Glucose Blood (ONETOUCH ULTRA BLUE) STRP Check sugars 3-4 times daily, E11.9 400 Strip 3 05/22/2020 Active TRULICITY 1.5 MG/0.5ML SOPNIndications:DM type 2 nursing care encounter ([facility]),Uncontrolled type 2 diabetes mellitus with stage 3 chronic kidney disease, with long-term current use of insulin ([facility]) inject 1.5mg (one pen) under the skin once weekly 6 mL 1 05/27/2020 Active furosemide (LASIX) 40 MG TabletIndications:C hronic diastolic congestive heart failure ([facility]) Take 2 Tabs by mouth daily. 180 Tab 3 05/28/2020 Active Additional Information Patient taking differently: 40 mg Oral BID, Reported on 06/13/2020 colchicine 0.6 MG TabletIndications:L eukocytoclastic vasculitis ([facility]) Take 1/2 tab daily 45 Tab [...] 7.0%-8.0% ([facility]) Inject up to 30 units with [...] 08/26/2020 Active clonazePAM 0.5 MG Oral Tablet (KlonoPIN)Indicatio ns:Anxiety state Take 1 Tab by mouth 2 times a day. 60 Tab 0 08/26/2020 Active Cyclobenzaprine HCl 10 MG Oral Tablet (FLEXERIL)Indicatio ns:Spinal stenosis of lumbar region without neurogenic claudication,Lumbar radiculopathy TAKE ONE TABLET BY MOUTH AT BEDTIME NEEDED FOR SPASM 30 Tab 0 09/04/2020 Active DULoxetine HCl 30 MG Oral Capsule Delayed Release Particles (CYMBALTA) TAKE ONE CAPSULE BY MOUTH DAILY. take with 60mg capsule for total of 90mg 90 Cap 1 09/16/2020 Active Levothyroxine Sodium 200 MCG Oral Tablet [...] other meds) 90 Tab 1 09/20/2020 Active Levothyroxine Sodium 200 MCG Oral Tablet (LEVOXYL)Indication s:Postsurgical hypothyroidism TAKE ONE TABLET BY MOUTH IN THE MORNING AT LEAST 30 MINUTES PRIOR TO BREAKFAST OR OTHER MEDS 90 Tab 1 09/16/2020 0 Discontinue d(Refill) Levothyroxine Sodium 25 MCG Oral Tablet (LEVOXYL)Indication s:Postsurgical hypothyroidism TAKE ONE TABLET BY MOUTH IN THE MORNING AT LEAST 30 MINUTES PRIOR TO BREAKFAST OR OTHER MEDS 90 Tab 1 09/16/2020 0 Discontinue d(Refill) documented as of this encounter [...] 10/14/2014 Overview: ICD-10 update of inactive term [place] filter in place 08/19/2014 History of pulmonary [...] encounter Miscellaneous Notes * Telephone Encounter - Nayeli Jesus RPh - 09/20/2020 10:57 AM EST Re-sent to [facility] [address] [place] [address] as requested. Thank you, Nayeli Jesus PharmD Clinical Pharmacist TelePharmacy 09/20/20 10:58 AM * Telephone Encounter - Mary Melgar PHARM Tech - 09/20/2020 10:[address] [facility] pharmacy did not receive Pending Prescriptions: Disp Refills Levothyroxine Sodium 200 MCG Oral Tablet *90 Tab 1 Sig: TAKE ONE TABLET BY MOUTH IN THE MORNING AT LEAST 30 MINUTES PRIOR TO BREAKFAST OR OTHER MEDS Levothyroxine Sodium 25 MCG Oral Tablet (*90 Tab 1 Sig: (at least 30 min prior to breakfast or other meds) Last Office/Telemedicine Visit: 09/04/2020 Next Office Visit: 11/13/2020 Scheduled Provider(s): Kevin Whiteside, DO If no future appointments scheduled, and last appointment is greater than a year ago, please schedule patient for a follow-up appointment Last date the medication was ordered:09/16/ Pharmacy: [facility] [address] [place] [address] . Is this request for a controlled substance?No Urine Drug Screen:No results found. However, due to the size of the patient record, not all encounters were searched. Please check Results Review for a complete set of results. Patient Phone Numbers Labs: Lab Results Component Value Date/Time CREAT 2.0 (H) 05/06/2020 08:46 AM POTASSIUM 4.0 05/06/2020 08:46 AM TSH 5.35 (H) 05/06/2020 08:46 AM LDLCALC UNINTERPRETABLE RESULT 03/14/2019 01:54 PM LDLDIRECT 109 07/14/2017 12:35 PM ALT 27 05/06/2020 08:46 AM HGBA1C 7.3 (H) 01/23/2020 11:11 AM documented in this encounter Plan of Treatment Upcoming Encounters Date Type Specialty Care Team Description 09/29/2020 Cuff Setter [facility]a Real, ELECTRONIC NEWS GATHERING CAMER[employer] PERSON [address] [place] [address] [phone] 09/30/2020 Office Visit Dermatology Apple Kaminski MD [address] [place] [address] [phone] 10/01/2020 Imaging Radiology 10/02/2020 Home Visit [facility] Vera Capellan RN [address] [place] [address] [phone] 10/03/2020 Telemedicine Nephrology Erik Lenz MD [address] [place] [address] [phone] 10/10/2020 Telemedicine Pain Management Raj Ahn, DO [address] [place] [address] [phone] 11/13/2020 Office Visit Family Medicine Kevin Whiteside, DO [address] [place] [address] [phone] 11/19/2020 Office Visit Pharmacy [facility] [place] [address] [place] [address] 01/08/2021 Office Visit Orthopedics Zack Teague, DO [address] [place] [address] [phone] 02/02/2021 Office Visit Cardiology Rey Woodall MD [address] [place] [address] [phone] 08/18/2021 Office Visit Pulmonary Celsa Tafoya CRNP [address] [place] [address] [phone] Health Maintenance Due Date Last Done Comments Zoster Vaccines (3 of 3) 01/02/2020 11/07/2019, 11/24 Pneumococcal Vaccine: 65+ Years (1 of 1 - PPSV23) 2020 08/22/2009, 06/15/2006 BREAST CANCER SCREENING DISCUSSION YEARLY AGES 40-75 07/10/2020 07/10/2019, 06/23/2018, 05/09/2015, Additional history exists DIABETES-HGBA1C EVERY 6 MONTHS 07/24/2020 01/23/2020, 11/07/2019, 08/09/2019, Additional history exists CKD GFR USE SMARTSET 52898 11/06/202005/06, 03/13/2020, 03/07/2020, Additional history exists DIABETES-FOOT EXAM 11/07/2020 11/07/2019, 0 01/01/2019, 12/29/2017, Additional history exists CKD PHOS USE SMARTSET 33307 12/23/2020 03/, 11/07/2019, 12/29/2017, Additional history exists DIABETES-URINE MICROALBUMIN EVERY 12 MONTHS 12/23/2020 12/24/2019, 11/30/2019, 05/24/2019, Additional history exists Yearly B-12 01/22/2021 01/23/2020, 02/24, 05/16/2018 DIABETES-EYE EXAM 04/07/2021 04/07/2020, , 02/24/2010 (Done elsewhere), Additional history exists CKD HGB USE SMARTSET 27561 05/06/202105/06, 03/13/2020, 11/30/2019, Additional history exists *DEPRESSION [...] Documents on File Type Date Recorded Patient Electronics Technician Expl 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
--- OUTSIDE RECORDS SUMMARY | 2023-06-01 05:16 | External Medical Summary | Summary of Care ---
Author Name Unknown Organization [place] [address] Care Team Providers Care Car Ferry Captain Name Role Phone Kevin Whiteside DO Primary Care Provider Reason for Visit * Reason Comments Dosage Adjustment In Person (Anticoag Cl inic) Diabetes Follow-Up Encounter Details Date Type Department Care Team Description 09/17/2020 Office Visit Pharmacy, [facility] [address] [place] [address] [facility] [address] Type 2 diabetes mellitus with hemoglobin A1c goal of 7.0%-8.0% ([facility])* Allergies Active Allergy Reactions Severity Noted Date Comments Codeine 07/08/2014 hallucination Pollen 05/18/2019 Heparin 09/04/2009 Heparin Induced Thrombocytopenia Hydrocodone Neuro complications (Please comment) 07/28/2020 Empagliflozin Other (Please comment) Medium 05/17/2018 3 yeast infections in 6 weeks after starting Morphine And Related 09/16/1997 Hallucinations Tetanus Toxoid Other (Please comment) 06/15/2011 Passed out documented as of this encounter (statuses as of 09/17/2020) Medications Medication Sig Dispensed Refills Start Date [...] Reported on 07/17/2020 Blood Glucose Monitoring Suppl (Query Hunter ULTRA 2) w/Device KIT Use to test BG values 1 Kit 0 05/20/2020 Active Glucose Blood (ONETOUCH ULTRA BLUE) STRP Check sugars 3-4 times daily, E11.9 400 Strip 3 05/22/2020 Active TRULICITY 1.5 MG/0.5ML SOPNIndications:DM type 2 nursing care encounter ([facility]),Uncontrolled type 2 diabetes mellitus with stage 3 [...] as of this encounter (statuses as of 09/17/2020) Active Problems Problem Noted Date Spinal stenosis [...] Overview: ICD-10 update of inactive term [place] filter in place 08/19/2014 History of pulmonary embolus (PE) 2013 Statin intolerance 07/16/2014 HTN, goal below 130/80 02/22/2014 Venous insufficiency 02/07/2013 ELISSA (obstructive sleep apnea) 09/16/2011 Overview: CPAP 11 cwp Mild, AHI 11.3 but with significant nocturnal hypoxemia Dicks Postsurgical hypothyroidism 06/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 documented as of this encounter (statuses as of 09/17/2020) Resolved Problems Problem Noted Date Resolved Date [...] as of this encounter (statuses as of 09/17/2020) Immunizations Name Administration Dates Next Due Pneumococcal [...] of this encounter Progress Notes * Rose Barton, [facility] - 09/17/2020 11:46 AM EST Medication Therapy Disease Management Diabetes Interval History: Stephanie Camp is an 65 year old year old female returning to the Medication Therapy Disease Management Clinic for a diabetes follow-up appointment. Blood glucose control since last visit: stable Medication intolerance: NO Medication contraindications: NO Complicating factors/cost barriers: NO Hospitalization or ED Utilization since last visit: NO Hypoglycemia requiring assistance since last visit: NO Symptoms of hyperglycemia or hypoglycemia present today: NO Diet: unchanged Exercise: unchanged Current Diabetes Medications: START: Novolog 25 units with meals plus 1:25 over 150 START: Tresiba 50 units HS Self-Monitoring Blood Glucose Review: Patient currently tests blood glucose 4 time(s) daily Pre am Post am Pre Lunch Post Lunch Pre pm Post pm HS 3am 265 273 198 302 237 170 211 255 197 166 271 335 276 254 243 146 Average 232 #DIV/0! 226 #DIV/0! 242 #DIV/0! 247 #DIV/0! Hi 265 0 243 0 335 0 302 0 Lo 198 0 197 0 146 [address]5 0 237 0 243 0 273 0 Range 67 0 46 0 189 0 136 0 Hypoglycemia: 1. Do you know what the symptoms of hypoglycemia are? Yes 2. How often can you tell by your symptoms if your blood sugar is low? Always 3. In a typical week, how many times will your blood sugar go below 70 mg/dL? Never Active Problem List Cardiac Dyslipidemia Chronic diastolic congestive heart failure ([facility]) Mental Health ELLIE (generalized anxiety disorder) Mild episode of recurrent major depressive disorder ([facility]) Endocrine Postsurgical hypothyroidism Type 2 diabetes mellitus with hemoglobin A1c goal of 7.0%-8.0% ([facility]) Hyperparathyroidism, secondary renal ([facility]) Pulmonary ELISSA (obstructive sleep apnea) History of pulmonary embolus (PE) Chronic respiratory failure with hypoxia ([facility]) Vascular Venous insufficiency Frank filter in place Vasculitis ([facility]) Nephrology HTN, goal below 130/80 General Statin intolerance Abnormality of gait Controlled substance agreement signed Orthopedics Fibromyalgia Lumbar radiculopathy Primary osteoarthritis of left knee Spinal stenosis of lumbar region without neurogenic claudication Neurology Restless legs syndrome Gastrointestinal Gastroesophageal reflux disease with esophagitis Morbid obesity with BMI of 50.0-59.9, adult ([facility]) OTHER 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, NYHA class 1 and CKD stage 3([facility]) Review of patient's allergies indicates: Allergen Reactions [...] for total of 90mg 90 Cap 1 Levothyroxine Sodium 200 MCG Oral Tablet (LEVOXYL) TAKE ONE TABLET BY MOUTH IN THE MORNING AT LEAST30 MINUTES PRIOR TO BREAKFAST OR OTHER MEDS 90 Tab 1 Levothyroxine Sodium 25 MCG Oral Tablet (LEVOXYL) TAKE ONE TABLET BY MOUTH IN THE MORNING AT LEAST 30 MINUTES PRIOR TO BREAKFAST OR OTHER MEDS 90 Tab 1 Cyclobenzaprine HCl 10 MG Oral Tablet (FLEXERIL) TAKE ONE TABLET BY MOUTH AT BEDTIME NEEDED FOR SPASM 30 Tab 0 clonazePAM 0.5 MG Oral Tablet (KlonoPIN) Take 1 Tab by mouth 2 times a day. 60 Tab 0 traMADol HCl 50 MG Oral Tablet (ULTRAM) Take 1 Tab by mouth every 8 hours as needed for Pain, Severe. 90 Tab 0 Doxycycline Hyclate 100 MG Oral [...] once weekly 6 mL 1 Glucose Blood (RadLogicsTOUCH ULTRA BLUE) STRP Check sugars 3-4 times [...] contact heart failure managing provider. 1 Each0 DULoxetine (CYMBALTA) 60 MG CPEP Take 1 Cap by mouth daily. Along with 30 mg capsule to total 90 mgdaily. 90 Cap 3 metoprolol tartrate (LOPRESSOR) 25 MG Tablet Take [...] times daily as directed 400 Each 3 Nortriptyline HCl (PAMELOR) 50 MG Capsule Take 1 Cap by mouth at bedtime. 90 Cap 3 omeprazole (PRILOSEC) 20 MG CPDR Take [...] times a day as needed for Constipation. Objective: The 10-year ASCVD risk score (Freddy JOHNS Jr., et al., 2013) is: 22.1% Values used to calculate the score: Age: 65 years Sex: Female Is Non- : No Diabetic: Yes Tobacco smoker: No Systolic Blood Pressure: 154 mmHg Is BP treated: Yes HDL Cholesterol: 36 mg/dL Total Cholesterol: 183 mg/dL Estimated body mass index is 56.3 kg/m as calculated from the following: Height as of 07/15/20: 1.626 m (5' 4"). Weight as of 07/28/20: 148.8 kg (328 lb). BP Readings from Last 3 Encounters: 09/04/20 154/72 08/28/20 118/68 07/30/20 122/72 No POC components found HEMOGLOBIN, A1C(%) Nessa Dt/Tm Resulted Value Status 01/23/20 11:11A 01/23/20 7.3* FINAL 11/07/19 3:04P 11/07/19 8.3* FINAL 08/09/19 11:02A 08/09/19 9.4* FINAL MICROALBUMIN RATIO(mg/g creat) Nessa Dt/Tm Resulted Value Status 05/24/19 2:59P 05/24/19 <16 FINAL 05/01/18 9:13A 05/01/18 <18 FINAL 03/03/17 12:37P 03/03/17 <15 FINAL BASIC METAB PANEL, BMP Nessa Dt/Tm Resulted Value Status BUN (mg/dL) 03/07/20 11:48A 03/07/20 30* F CREATININE (mg/dL) 03/07/20 11:48A 03/07/20 1.7* F E GLOM FILT RATE ( ) 03/07/20 11:48A 03/07/20 31.8* F SODIUM (mmol/L) 03/07/20 11:48A 03/07/20 140 F POTASSIUM (mmol/L) 03/07/20 11:48A 03/07/20 3.7 F CHLORIDE (mmol/L) 03/07/20 11:48A 03/07/20 94* F CO2 (mmol/L) 03/07/20 11:48A 03/07/20 32 F ANION GAP (mmol/L) 03/07/20 11:48A 03/07/20 14 F GLUCOSE (mg/dL) 03/07/20 11:48A 03/07/20 155* F CALCIUM (mg/dL) 03/07/20 11:48A 03/07/20 9.6 F ALT(U/L) Nessa Dt/Tm Resulted Value Status 05/06/20 8:46A 05/06/20 27 FINAL LDL (CALCULATED)(mg/dL) Nessa Dt/Tm Resulted Value Status 03/14/19 1:54P 03/14/19 FINAL Value: UNINTERPRETABLE RESULT Assessment & Plan: Glycemic control is stable but not at goal Patient agreeable to adjust medications as noted below. Patient is taking DM meds as directed. Compliant. Tolerating well. Patient BG values are still elevated. Recommending to increase Tresiba and Novolog at this time. Patient agreeable. Patient is interested in trying a CGM. Patient is agreeable to SMBG 4 time(s) daily. Patient aware to contact clinic if any hypoglycemia before next visit. Reviewed rule of 15s. Diabetes Medications: INCREASE: Novolog 30 units with meals plus 1:25 over 150 INCREASE: Tresiba 55 units HS Diabetes Health Maintenance: up-to-date Return to clinic: 8 week(s) Next Office Visit: 11/19/2020 Scheduled Provider(s): [facility] Moe Barton [facility] Clinical Pharmacist Medication Therapy Disease Management 09/17/2020, 11:47 AM documented in this encounter Plan of Treatment Upcoming Encounters Date Type Specialty Care Team Description 09/29/2020 Facilities Clerk [facility] Rema Real LSW [address] [place] [address] [phone] 09/30/2020 Office Visit Dermatology Apple Kaminski MD [address] [facility] [place] [address] [phone] 10/01/2020 Imaging Radiology 10/02/2020 Home Visit [facility] Vera Capellan RN [address] [place] [address] [phone] 10/03/2020 Telemedicine Nephrology Erik Lenz MD [address] [facility] [place] [address] [phone] 10/10/2020 Telemedicine Pain Management Raj Ahn, DO [address] [place] [address] [phone] 11/13/2020 Office Visit Family Medicine Kevin Whiteside, [address] [place] [address] [phone] 11/19/2020 [address] [facility] Moe Bobo [address] [address] 01/08/2021 Office Visit Orthopedics Zack Teague DO [address] [place] [address] [phone] 02/02/2021 Office Visit Cardiology Rey Woodall MD [address] [place] [address] [phone] 08/18/2021 Office Visit Pulmonary Celsa Tafoya CRNP [address] [place] [address] [phone] Health Maintenance Due Date Last Done Comments Zoster Vaccines (3 of 3) 01/02/2020 11/07/2019, 11/24 Pneumococcal Vaccine: 65+ Years (1 of 1 - PPSV23) 2020 08/22/2009, 06/15/2006 BREAST CANCER SCREENING DISCUSSION YEARLY AGES 40-75 07/10/2020 07/10/2019, 06/23/2018, 05/09/2015, Additional history exists DIABETES-HGBA1C EVERY 6 MONTHS 07/24/2020 01/23/2020, 11/07/2019, 08/09/2019, Additional history exists CKD GFR USE SMARTSET 10000 11/06/202005/06, 03/13/2020, 03/07/2020, Additional history exists DIABETES-FOOT EXAM 11/07/2020 11/07/2019, 0 01/01/2019, 12/29/2017, Additional history exists CKD PHOS USE SMARTSET 37621 12/23/2020 03/, 11/07/2019, 12/29/2017, Additional history exists DIABETES-URINE MICROALBUMIN EVERY 12 MONTHS 12/23/2020 12/24/2019, 11/30/2019, 05/24/2019, Additional history exists Yearly B-12 01/22/2021 01/23/2020, 02/24, 05/16/2018 DIABETES-EYE EXAM 04/07/2021 04/07/2020, , 02/24/2010 (Done elsewhere), Additional history exists CKD HGB USE SMARTSET 23101 05/06/202105/06, 03/13/2020, 11/30/2019, Additional history exists *DEPRESSION [...] File Type Date Recorded Patient Food Preparation Worker Expl 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
--- OUTSIDE RECORDS SUMMARY | 2023-06-01 05:16 | External Medical Summary | Summary of Care ---
Author Name Unknown Organization [place] [address] Care Team Providers Care Tablet Repair Name Role Phone Kevin Whiteside DO Primary Care Provider Reason for Visit * Reason Onset Date Comments Referral 09/04/2020 Encounter Details Date Type Department Care Team Description 09/04/2020 Telephone [facility] [address] [place] [address] Medina Fuentes PA-C [address] [place] [address] Referral Allergies Active Allergy Reactions Severity Noted Date Comments Codeine 07/08/2014 hallucination Pollen 05/18/2019 Heparin 09/04/2009 Heparin Induced Thrombocytopenia Hydrocodone Neuro complications (Please comment) 07/28/2020 Empagliflozin Other (Please comment) Medium 05/17/2018 3 yeast infections in 6 weeks after starting Morphine And Related 09/16/1997 Hallucinations Tetanus Toxoid Other (Please comment) 06/15/2011 Passed out documented as of this encounter (statuses as of 09/04/2020) Medications Medication Sig Dispensed Refills Start Date [...] 12/18/2019 Active Nortriptyline HCl (PAMELOR) 50 MG CapsuleIndications:F ibromyalgia Take 1 Cap by mouth at bedtime. 90 Cap 3 12/18/2019 Active levothyroxine (LEVOXYL) 200 MCG TabletIndications:Po stsurgical hypothyroidism TAKE ONE TABLET BY MOUTH EVERY DAY AT LEAST 30 MINUTES BEFORE BREAKFAST OR OTHER MEDS 90 Tab 3 12/18/2019 Active traZODone (DESYREL) 50 MG [...] per week 30 Tab 3 02/26/2020 Active levothyroxine (LEVOXYL) 25 MCG TabletIndications:Po stsurgical hypothyroidism TAKE ONE TABLET BY MOUTH IN THE MORNING AT LEAST 30 MINUTES PRIOR TO BREAKFAST OR OTHER MEDS 90 Tab 1 02/28/2020 Active DULoxetine (CYMBALTA) 30 MG CPEP Take 1 Cap by mouth daily. Take along with the 60mg dose for totally of 90mg daily. Do not cut, crush or chew 90 Cap 3 03/13/2020 Active DULoxetine (CYMBALTA) 60 MG CPEPIndications:Fibr omyalgia,Moderate episode of recurrent major depressive disorder (HCC),Primary osteoarthritis of both knees Take 1 Cap by mouth daily. Along with 30 mg capsule to total 90 mg daily. 90 Cap 3 03/13/2020 Active rOPINIRole (REQUIP) 2 MG TabletIndications:Re stless [...] 90 Tab 3 03/13/2020 Active DIURETIC TITRATION PLANIndications:Cdl B Driver zahra diastolic congestive heart failure (HCC) [...] 0 05/08/2020 Active gabapentin (NEURONTIN) 300 MG CapsuleIndications:T ype 2 diabetes mellitus with hemoglobin A1c goal of 7.0%-8.0% (HCC) TAKE ONE CAPSULE BY MOUTH THREE TIMES DAILY 270 Cap 0 05/20/2020 Active Additional Information Patient taking differently: 300 mg Oral TID, Taking 300mg in am and 600mg in pm, Reported on 07/17/2020 Blood Glucose Monitoring Suppl (Berkshire FilmsTOUCH ULTRA 2) w/Device KIT Use to test [...] day. 0 07/22/2020 Active First-Mouthwash BLM Mouth/Throat SuspensionIndication s:Pain in mouth Swish and spit 30 mL 4 times a day. 237 mL 1 07/28/2020 Active traMADol HCl 50 MG Oral Tablet (ULTRAM)Indications: Chronic pain syndrome Take 1 Tab by mouth every 8 hours as needed for Pain, Severe. 90 Tab 0 08/26/2020 Active clonazePAM 0.5 MG Oral Tablet (KlonoPIN)Indication s:Anxiety state Take 1 Tab by mouth 2 times a day. 60 Tab 0 08/26/2020 Active Fluconazole 150 MG Oral Tablet (DIFLUCAN)Indication s:Yeast infection Take 1 Tab by mouth once for 1 dose. 1 Tab 0 09/04/2020 09/04/2020 Active Cyclobenzaprine HCl 10 MG Oral Tablet (FLEXERIL)Indication s:Spinal stenosis of lumbar region without neurogenic claudication,Lumbar radiculopathy TAKE ONE TABLET BY MOUTH AT BEDTIME NEEDED FOR SPASM 30 Tab 0 09/04/2020 Active documented as of this encounter (statuses as of 09/04/2020) Active Problems Problem Noted Date Spinal stenosis [...] as of this encounter (statuses as of 09/04/2020) Resolved Problems Problem Noted Date Resolved Date [...] as of this encounter (statuses as of 09/04/2020) Immunizations Name Administration Dates Next Due Pneumococcal [...] Miscellaneous Notes * Telephone Encounter - Telma Ambrocio, ELISSA - 09/04/2020 3:49 PM EST faxed * Telephone Encounter - Bindu [place] OSA - 09/04/2020 2:50 PM EST Patient would like to go to [facility] in [place]. * Telephone Encounter - Telma Ambrocio OSA - 09/04/2020 12:59 PM EST PT referral LM for pt to call and let us know where she would like to go for PT documented in this encounter Plan of Treatment Upcoming Encounters Date Type Specialty Care Team Description 09/05/2020 Home Visit [facility] Rema Real, AUDIO/VIDEO ENGINEER [address] [place] [address] [phone] 09/10/[address] [facility] [place] [address] [place] [address] 09/12/2020 Office Visit Pain Management Raj Ahn DO [address] [place] [address] [phone] 09/30/2020 Office Visit Dermatology Apple Kaminski MD [address] [facility] [place] [address] [phone] 10/01/2020 Imaging Radiology 10/02/2020 Home Visit [facility] Vera Capellan RN [address] [place] [address] [phone] 10/03/2020 Telemedicine Nephrology Erik Lenz MD [address] [facility] [place] [address] [phone] 11/13/2020 Office Visit Family Medicine Kevin Whiteside, [address] [place] [address] [phone] 01/08/2021 Office Visit Orthopedics Zack Teague DO [address] [place] [address] 02/02/2021 Office Visit Cardiology Rey Woodall MD [address] [place] [address] 08/18/2021 Office [...] Additional history exists CKD GFR USE SMARTSET 33779 11/06/202005/06, 03/13/2020, 03/07/2020, Additional history exists DIABETES-FOOT EXAM 11/07/2020 11/07/2019, 0 01/01/2019, 12/29/2017, Additional history exists CKD PHOS USE SMARTSET 44143 12/23/2020 03/, 11/07/2019, 12/29/2017, Additional history exists DIABETES-URINE MICROALBUMIN EVERY 12 MONTHS 12/23/2020 12/24/2019, 11/30/2019, 05/24/2019, Additional history exists Yearly B-12 01/22/2021 01/23/2020, 02/24, 05/16/2018 DIABETES-EYE EXAM 04/07/2021 04/07/2020, , 02/24/2010 (Done elsewhere), Additional history exists CKD HGB USE SMARTSET 84793 05/06/202105/06, 03/13/2020, 11/30/2019, Additional history exists *DEPRESSION [...] Documents on File Type Date Recorded Patient Contract Admin Expl 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
--- OUTSIDE RECORDS SUMMARY | 2023-06-01 05:16 | External Medical Summary | Summary of Care ---
Author Name Unknown Organization [place] [address] Care Team Providers Care Visual And Stock Associate Name Role Phone Whiteside Kevin Ocampomelinda Primary Care Provider Reason for Visit * Reason Comments [facility]: Maintenance Encounter Details Date Type Department Care Team Description 09/29/2020 Riveter Pneumatic [facility], [facility] [place] [address] Rema Real, ALTERATION WORKER [address] [facility] [place] [address] [phone] Allergies Active Allergy Reactions Severity Noted Date Comments Codeine 07/08/2014 hallucination Pollen 05/18/2019 Heparin 09/04/2009 Heparin Induced Thrombocytopenia Hydrocodone Neuro complications (Please comment) 07/28/2020 Empagliflozin Other (Please comment) Medium 05/17/2018 3 yeast infections in 6 weeks after starting Morphine And Related 09/16/1997 Hallucinations Tetanus Toxoid Other (Please comment) 06/15/2011 Passed out documented as of this encounter (statuses as of 09/29/2020) Medications Medication Sig Dispensed Refills Start Date [...] Reported on 07/17/2020 Blood Glucose Monitoring Suppl (Firepro SystemsTOUCH ULTRA 2) w/Device KIT Use to test BG values 1 Kit 0 05/20/2020 Active Glucose Blood (ONETOUCH ULTRA BLUE) STRP Check sugars 3-4 times daily, E11.9 400 Strip 3 05/22/2020 Active TRULICITY 1.5 MG/0.5ML SOPNIndications:DM type 2 nursing care encounter ([facility]),Uncontrolled type 2 diabetes mellitus with stage 3 chronic kidney disease, with long-term current use of insulin ([facility]) inject 1.5mg (one pen) under [...] AT BEDTIME 90 Cap 1 09/23/2020 Active documented as of this encounter (statuses as of 09/29/2020) Active Problems Problem Noted Date Spinal stenosis [...] 10/14/2014 Overview: ICD-10 update of inactive term [place] filter in place 08/19/2014 History of pulmonary embolus (PE) 2013 Statin intolerance 07/16/2014 HTN, goal below 130/80 02/22/2014 Venous insufficiency 02/07/2013 ELISSA (obstructive sleep apnea) 09/16/2011 Overview: CPAP 11 cwp Mild, AHI 11.3 but with significant nocturnal hypoxemia Dicks Postsurgical hypothyroidism 06/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 documented as of this encounter (statuses as of 09/29/2020) Resolved Problems Problem Noted Date Resolved Date [...] as of this encounter (statuses as of 09/29/2020) Immunizations Name Administration Dates Next Due Pneumococcal [...] Progress Notes * Rema Real LSW - 09/29/2020 12:29 PM ASHLEY MCCALL called Stephanie for follow up and to schedule visit. Left message for Stephanie to call STEFANY. Did not hear back by end of business day. documented in this encounter Plan of Treatment Upcoming Encounters Date Type Specialty Care Team Description 09/30/2020 Office Visit Dermatology Apple Kaminski MD [address] [facility] [place] [address] [phone] 10/01/2020 Imaging Radiology 10/02/2020 Home Visit [facility] Vera Capellan RN [address] [place] [address] [phone] 10/03/2020 Telemedicine Nephrology Erik Lenz MD [address] [facility] [place] [address] [phone] 10/10/2020 Telemedicine Pain Management Raj Ahn, DO [address] [place] [address] [phone] 11/13/2020 Office Visit Family Medicine Kevin Whiteside, DO [address] [place] [address] [phone] 11/19/2020 Office Visit Pharmacy [facility] [place] [address] [place] [address] 01/08/2021 Office Visit Orthopedics Zack Teague, DO [address] [place] [address] [phone] 02/02/2021 Office Visit Cardiology Rey Woodall MD [address] [place] [address] [phone] 08/18/2021 Office Visit Pulmonary Celsa Tafoya CRNP [address] [place] [address] [phone] Health Maintenance Due Date Last Done Comments Zoster Vaccines (3 of 3) 01/02/2020 11/07/2019, 11/24 Pneumococcal Vaccine: 65+ Years (1 of 1 - PPSV23) 2020 08/22/2009, 06/15/2006 BREAST CANCER SCREENING DISCUSSION YEARLY AGES 40-75 07/10/2020 07/10/2019, 06/23/2018, 05/09/2015, Additional history exists DIABETES-HGBA1C EVERY 6 MONTHS 07/24/2020 01/23/2020, 11/07/2019, 08/09/2019, Additional history exists CKD GFR USE SMARTSET 44594 11/06/202005/06, 03/13/2020, 03/07/2020, Additional history exists DIABETES-FOOT EXAM 11/07/2020 11/07/2019, 0 01/01/2019, 12/29/2017, Additional history exists CKD PHOS USE SMARTSET 71391 12/23/202011/26, 11/07/2019, 12/29/2017, Additional history exists DIABETES-URINE MICROALBUMIN EVERY 12 MONTHS 12/23/2020 12/24/2019, 11/30/2019, 05/24/2019, Additional history exists Yearly B-12 01/22/2021 01/23/2020, 02/24, 05/16/2018 DIABETES-EYE EXAM 04/07/2021 04/07/2020, , 02/24/2010 (Done elsewhere), Additional history exists CKD HGB USE SMARTSET 76106 05/06/202105/06, 03/13/2020, 11/30/2019, Additional history exists *DEPRESSION [...] on File Type Date Recorded Patient Business Office Specialist Expl 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
--- OUTSIDE RECORDS SUMMARY | 2023-06-01 05:16 | External Medical Summary | Summary of Care ---
Author Name Unknown Organization [place] [address] Care Team Providers Care Customs House Broker Name Role Phone Kevin Whiteside DO Primary Care Provider Reason for Visit * Reason Comments Back Pain Encounter Details Date Type Department Care Team Description 09/12/2020 Office Visit [facility], [facility] [address] [place] [id number] CousinRaj travis DO [address] [place], [place] [id number] Spinal stenosis of lumbar region with neurogenic [...] as of this encounter (statuses as of 09/12/2020) Medications Medication Sig Dispensed Refills Start Date [...] 3 12/18/2019 Active levothyroxine (LEVOXYL) 200 MCG TabletIndications:Pos tsurgical hypothyroidism TAKE ONE TABLET BY MOUTH EVERY [...] 3 02/26/2020 Active levothyroxine (LEVOXYL) 25 MCG TabletIndications:Pos tsurgical hypothyroidism TAKE ONE TABLET BY MOUTH IN THE MORNING AT LEAST 30 MINUTES PRIOR TO BREAKFAST OR OTHER MEDS 90 Tab 1 02/28/2020 Active DULoxetine (CYMBALTA) 30 MG CPEP Take 1 Cap by mouth daily. Take along with the 60mg dose for totally of 90mg daily. Do not cut, crush or chew 90 Cap 3 03/13/2020 Active DULoxetine (CYMBALTA) 60 MG CPEPIndications:Fibro myalgia,Moderate [...] goal of 7.0%-8.0% ([facility]) TAKE ONE CAPSULE BY MOUTH THREE TIMES DAILY 270 Cap 0 05/20/2020 Active Additional Information Patient taking differently: 300 mg Oral TID, Taking 300mg in am and 600mg in pm, Reported on 07/17/2020 Blood Glucose Monitoring Suppl (ZulaTOUCH ULTRA 2) w/Device KIT Use to test [...] as of this encounter (statuses as of 09/12/2020) Active Problems Problem Noted Date Spinal stenosis [...] Overview: ICD-10 update of inactive term [place] filter in place 08/19/2014 History of pulmonary embolus (PE) 2013 Statin intolerance 07/16/2014 HTN, goal below 130/80 02/22/2014 Venous insufficiency 02/07/2013 ELISSA (obstructive sleep apnea) 09/16/2011 Overview: CPAP 11 cwp Mild, AHI 11.3 but with significant nocturnal hypoxemia Dicks Postsurgical hypothyroidism 06/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 documented as of this encounter (statuses as of 09/12/2020) Resolved Problems Problem Noted Date Resolved Date [...] as of this encounter (statuses as of 09/12/2020) Immunizations Name Administration Dates Next Due Pneumococcal [...] Pressure - - Pulse - - Temperature 36.1 C (97 F) 09/12/2020 9:42 AM EST Respiratory Rate - - Oxygen Saturation - - Inhaled Oxygen Concentration - - Weight - - Height - - Body Mass Index - - documented in this encounter Progress Notes * Cousinthaddeus, Raj Nolen, DO - 09/12/2020 9:51 AM EST Name: Stephanie Camp Date: 09/12/2020 HPI: Stephanie Camp is a 65 year old female seen in the pain management clinic for re-evaluation afterhaving undergone right sacroiliac joint injection about 5 weeks ago. She had short-term improvementunfortunately has now experience recurrence of her back and bilateral lower extremity radicular symptoms. This is now more consistent with her underlying spinal stenosis. She did undergo caudal epidural steroid injection on 05/26/2020 with resolution of her radicular pain for several months. She isscheduled to begin some physical therapy although yesterday's snowstorm caused her to cancel her 1st appointment. History: Past Medical History: Diagnosis Date ELSIE (acute kidney injury) ([facility]) 06/12/2018 Allergic rhinitis due to other allergen Backache Diverticulosis of colon 01/28/06 DM type 2, not at goal ([facility]) ELLIE (generalized anxiety disorder) 09/13/2009 Goiter [place] filter in place 08/19/2014 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[facility]) 08/22/2009 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[facility]) 06/12/2018 History of pulmonary embolus (PE) 07/16/2014 HTN, goal below 140/90 Impetigo 09/27/2018 Obesity, BMI not known Perforation of intestine ([facility]) 1996 COLON -- 1996 Pneumonia in aspergillosis(484.6) 09/14/2009 Spinal stenosis of lumbar region without neurogenic claudication 07/15/2020 Spontaneous pneumothorax 09/14/2009 Statin intolerance 07/16/2014 Type 2 diabetes mellitus with hemoglobin A1c goal of 7.0%-8.0% ([facility]) 10/14/2014 ICD-10 update of inactive term Vaginal karmen 07/13/2018 Past Surgical History: Procedure Laterality Date ARTHROPLASTY KNEE TOTAL Right 07/24/14 R COLONOSCOPY, DIAGNOSTIC (RECTUM) 02/18/2016 normal, repeat 10 yrs/[facility] COLONOSCOPY, GI REFERRAL OP 01/28/06 diverticulosis--repeat 10 years INCISION OF WINDPIPE, PLANNED 06/03/2011 TRACHEOSTOMY PLANNED performed by DANNY HOLDER at OR [facility] INJECT DX/THER SUBSTANCE INTERLAMINAR LUMBAR/SACRAL W IMAGE GUIDE 05/26/2020 INJECTION SPINE LUMBAR OR SACRAL performed by Raj Ahn DO at OR [facility] KNEE ARTHROSCOPY/DEBRIDEMENT 07/[address] PERMANENT GASTROSTOMY TUBE 09/06/09 GASTROSTOMY WITH CONSTUCTION GASTRIC TUBE performed by AMADOU NUNEZ at [facility] REMOVAL OF THYROID GLAND 06/15/2011 THYROIDECTOMY INCLUDING SUBSTERNAL THYROID CERVICAL APPROACH performed by DANNY HOLDER at OR [facility] REMOVE GALLBLADDER 09/06/09 CHOLECYSTECTOMY performed by AMADOU NUNEZ at [facility] REPAIR RECURRENT INCISIONAL HERNIA 1998 REVISION OF COLOSTOMY, SIMPLE 1997 SACROILIAC JOINT INJECT W/GUIDANCE 07/28/2020 INJECTION SACROILIAC JOINT performed by Raj Ahn DO at OR [facility] SUTURE, LARGE INTESTINE W/COLOSTOMY 1996 perforation R colon with colostomy VENA CAVA FILTER/LIGATION/CLIP 08/19/09 [place] filter placement through the right femoral 08/19/[address] Lerma at [facility] Current Outpatient Medications Medication Sig [...] mg by mouth 2 times a day. Magnesium Oxide 400 (241.3 Mg) MG Oral [...] directed by diabetes clinic 81 mL 3 Tresiba FlexTouch 100 UNIT/ML Subcutaneous Solution Pen-injector (Insulin Degludec) Inject 50 Units under the skin daily. 45 mL 3 colchicine 0.6 MG Tablet Take 1/2 tab daily 45 Tab 1 furosemide (LASIX) 40 MG Tablet Take 2 Tabs by mouth daily. (Patient taking differently: Take 40 mg by mouth 2 times a day.) 180 Tab 3 TRULICITY 1.5 MG/0.5ML SOPN inject 1.5mg (one pen) under the skin once weekly 6 mL 1 gabapentin (NEURONTIN) 300 MG Capsule TAKE ONE CAPSULE BY MOUTH THREE TIMES DAILY (Patient taking differently: Take 300 mg by mouth 3 times a day. Taking 300mg in am and 600mg in pm) 270 Cap 0 dicyclomine (BENTYL) 20 MG Tablet Take 1 Tab by mouth 4 times a day as needed for Pain, Mild. For abdominal pain 120 Tab 11 metoprolol tartrate (LOPRESSOR) 25 MG Tablet Take 0.5 Tabs by mouth 2 times a day. 90 Tab 3 rOPINIRole (REQUIP) 2 MG Tablet Take 1 Tab by mouth at bedtime. 90 Tab 3 levothyroxine (LEVOXYL) 25 MCG Tablet TAKE ONE TABLET BY MOUTH IN THE MORNING AT LEAST 30 MINUTES PRIOR TO BREAKFAST OR OTHER MEDS 90 Tab 1 potassium chloride ER 10 MEQ TBCR Take one 3 days per week 30 Tab 3 levothyroxine (LEVOXYL) 200 MCG Tablet TAKE ONE TABLET BY MOUTH EVERY DAY AT LEAST 30 MINUTES BEFORE BREAKFAST OR OTHER MEDS 90 Tab 3 Nortriptyline HCl (PAMELOR) 50 MG Capsule Take 1 Cap by mouth at bedtime. 90 Cap 3 traZODone (DESYREL) 50 MG Tablet Take 1 Tab by mouth at bedtime. 90 Tab 3 docusate sodium (STOOL SOFTENER) 100 MG Capsule Take 100 mg by mouth 2 times a day as needed for Constipation. Cyclobenzaprine HCl 10 MG Oral Tablet (FLEXERIL) TAKE ONE TABLET BY MOUTH AT BEDTIME NEEDED FOR SPASM 30 Tab 0 First-Mouthwash BLM Mouth/Throat Suspension Swish and spit 30 mL 4 times a day. 237 mL 1 BD Pen Needle Short U/F 31G X 8 MM (Insulin Pen Needle) Use 5 times daily with insulin 200 Each 11 clobetasol propionate (TEMOVATE) 0.05 % cream Apply to rash on the hands and dorsal feet twice daily x 1 week, then as needed for flares. 30 g 1 Glucose Blood (FromlabUCH ULTRA BLUE) STRP Check sugars 3-4 times daily, E11.9 400 Strip 3 Blood Glucose Monitoring Suppl (FromlabUCH ULTRA 2) w/Device KIT Use to test BG values 1 Kit 0 zoster vac recomb adjuvanted (SHINGRIX) 50 MCG/0.5ML injection Inject 0.5 mL into a large muscle now and repeat dose in 60 to 180 days. Please fax date this was given to our office. (pt already had 1st done in 10/2019 1 Each 0 DIURETIC TITRATION PLAN If no improvement on day 3, contact heart failure managing provider. 1 Each0 DULoxetine (CYMBALTA) 30 MG CPEP Take 1 Cap by mouth daily. Take along with the 60mg dose for totally of 90mg daily. Do not cut, crush or chew 90 Cap 3 DULoxetine (CYMBALTA) 60 MG CPEP Take 1 Cap by mouth daily. Along with 30 mg capsule to total 90 mgdaily. 90 Cap 3 metolazone (ZAROXOLYN) 2.5 MG Tablet Take as directed by physician 5 Tab 0 ACCU-CHEK SOFTCLIX LANCETS MISC Test blood [...] sugars 3-4 times daily 180 Each 5 Review of patient's allergies indicates: Allergen Reactions [...] years: 15.00 Quit date: 08/26/1997 Years since quittin.0 Smokeless Tobacco Never Used Social History Substance and Sexual Activity Alcohol Use Not Currently Comment: rare ROS CONSTITUTIONAL: Denies anorexia, weight loss, fever, night sweats RESPIRATORY: Denies shortness of breath, wheezing, productive cough CARDIOVASCULAR: Denies chest pains, irregular heartbeat HEME: Denies easy bruising , anti-coagulation therapy ROS EXAM: Remainder of ROS negative as discussed above in the HPI PHYSICAL EXAM: Temp 36.1 C (97 F) | LMP 03/11/2003 She can stand ambulate without gait abnormality. She has +5/5 motor function lower extremities. There are no gross sensory deficits noted. ASSESSMENT: Lumbar spinal stenosis with neurogenic claudication RECOMMENDATION: I will re-evaluate her by telemedicine visit in about 4 weeks after she has completed her physical therapy. I could repeat her epidural injections since this was last completed 4 months ago. Patient is in agreement with the plan as discussed Raj Ahn DO 09/12/2020 9:51 AM documented in this encounter Nursing Notes * Telma Sandoval LPN - 09/12/2020 9:43 AM EST Patient reports low back and b/l lower ext pain, worse with walking No new imaging documented in this encounter Plan of Treatment Upcoming Encounters Date Type Specialty Care Team Description 09/12/2020 [facility] Visit [facility] Rema Real LSW [address] [place] [address] [phone] 09/17/2020 Office Visit Pharmacy [facility] [place] [address] [place] [address] 09/30/2020 Office [facility]at[facility] Apple Kaminski [facility] [address] [facility] [address] [phone] 10/01/2020 Imaging Radiology 10/02/2020 Home Visit [facility] Vera Capellan RN [address] [place] [address] [phone] 10/03/2020 Telemedicine Nephrology Erik Lenz MD [address] [place] [address] [phone] 10/10/2020 Telemedicine Pain Management Raj Ahn DO [address] [place] [address] [phone] 11/13/2020 Office Visit Family Medicine Kevin Whiteside DO [address] [place] [address] [phone] 01/08/2021 Office Visit Orthopedics Zack Teague, DO [address] [address] [phone] 02/02/2021 Office Visit Cardiology Rey Woodall MD [address] [place] [address] [phone] 08/18/2021 Office Visit Pulmonary Celsa Tafoya CRNP [address] [place] [address] [phone] Health Maintenance Due Date Last Done Comments Zoster Vaccines (3 of 3) 01/02/2020 11/07/2019, 11/24 Pneumococcal Vaccine: 65+ Years (1 of 1 - PPSV23) 2020 08/22/2009, 06/15/2006 BREAST CANCER SCREENING DISCUSSION YEARLY AGES 40-75 07/10/2020 07/10/2019, 06/23/2018, 05/09/2015, Additional history exists DIABETES-HGBA1C EVERY 6 MONTHS 07/24/2020 01/23/2020, 11/07/2019, 08/09/2019, Additional history exists CKD GFR USE SMARTSET 26445 11/06/202005/06, 03/13/2020, 03/07/2020, Additional history exists DIABETES-FOOT EXAM 11/07/2020 11/07/2019, 0 01/01/2019, 12/29/2017, Additional history exists CKD PHOS USE SMARTSET 99043 12/23/2020 03/, 11/07/2019, 12/29/2017, Additional history exists DIABETES-URINE MICROALBUMIN EVERY 12 MONTHS 12/23/2020 12/24/2019, 11/30/2019, 05/24/2019, Additional history exists Yearly B-12 01/22/2021 01/23/2020, 02/24, 05/16/2018 DIABETES-EYE EXAM 04/07/2021 04/07/2020, , 02/24/2010 (Done elsewhere), Additional history exists CKD HGB USE SMARTSET 37876 05/06/202105/06, 03/13/2020, 11/30/2019, Additional history exists *DEPRESSION [...] on File Type Date Recorded Patient Patient Biller Expl 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
--- OUTSIDE RECORDS SUMMARY | 2023-06-01 05:16 | External Medical Summary | Summary of Care ---
Author Name Unknown Organization [place] [address] Care Team Providers Care Metalizing Supervisor Name Role Phone Whiteside Kevin Ocampomelinda Primary Care Provider Reason for Visit * Reason Comments [facility]: Maintenance Encounter Details Date Type Department Care Team Description 10/02/2020 Home Visit [facility], [facility] [address] [facility] [place] [address] Vera Capellan RN [address] [place] [address] [phone] Benign hypertensive heart and kidney disease with [...] Reported on 07/17/2020 Blood Glucose Monitoring Suppl (Thumbs UpTOUCH ULTRA 2) w/Device KIT Use to test [...] 10/14/2014 Overview: ICD-10 update of inactive term [place] filter in place 08/19/2014 History of pulmonary [...] Sign Reading Time Taken Comments Blood Pressure 126/64 10/02/2020 9:06 AM EST Pulse 77 10/02/2020 9:06 AM EST Temperature 36.2 C (97.1 F) 10/02/2020 9:06 AM ES T Respiratory Rate 18 10/02/2020 9:06 AM EST Oxygen Saturation 96% 10/02/2020 9:06 AM EST Inhaled Oxygen Concentration - - Weight - - Height - - Body Mass Index - - documented in this encounter Progress Notes * Vera Capellan, RN - 10/02/2020 9:00 AM EST [facility] Visit Date: 10/02/2020 Time: 8:59 AM Name: Stephanie Camp : 1955 Current Concerns: Patient seen for return RNCM visit Started PT at [facility] for back issues a few weeks ago Pain of lower back continues and she reports she "hurts all over" today - started yesterday. Feels the pain is from her fibromyalgia. Usually takes Tramadol but she is out - msg sent to PCP for refill Pt denies any increase in SOB, cough. Denies N/V/D. She is more fatigued today but no other symptoms BSG readings have been running in the 200's. Followed by [facility] Missed derm appt earlier this week - msg sent to scheduling to assist in rescheduling Message sent to [facility] who saw pt last - pt interested in getting Dexcom or Freestyle by has not received an word on this yet. Physical Exam: BP 126/64 | Pulse 77 | Temp 36.2 C (97.1 F) | Resp 18 | LMP 03/11/2003 | SpO2 96% Pain 8 with movement, almost 0 when still Physical Exam Constitutional: Appearance: She is obese. HENT: Nose: Congestion (chronic) present. Mouth/Throat: Mouth: Mucous membranes are moist. Cardiovascular: Rate and Rhythm: Normal rate and regular rhythm. Pulses: Normal pulses. Heart sounds: Normal heart sounds. Pulmonary: Effort: Pulmonary effort is normal. Breath sounds: Normal breath sounds. Abdominal: General: Bowel sounds are normal. Palpations: Abdomen is soft. Musculoskeletal: Right lower leg: Edema (+1 pitting) present. Left lower leg: Edema (+1 pitting) present. Skin: General: Skin is warm and dry. Neurological: Mental Status: She is alert and oriented to person, place, and time. Psychiatric: Mood and Affect: Mood normal. Behavior: Behavior normal. Thought Content: Thought content normal. Judgment: Judgment normal. Problems/Symptoms: Review of Systems Constitutional: Positive for fatigue. HENT: Positive for congestion (nasal - chronic). Eyes: Negative. Respiratory: Positive for cough (occasional, chronic from sinuses) and shortness of breath (AVENDAÑO - at baseline). Cardiovascular: Positive for leg swelling. Gastrointestinal: Negative. Endocrine: Negative. Genitourinary: Negative. Musculoskeletal: Positive for arthralgias and back pain. Skin: Negative. Neurological: Positive for weakness (legs - started PT for strengthening). Hematological: Negative. Psychiatric/Behavioral: Negative. Medication Reconciliation: (See medication list) Does patient take medications as ordered: Yes Patient Well Being: PHQ2/9: No questionnaires available. No change in living situation. Denies any recent falls. Depression is worse. Pt is tearful today, missing family and frustrated with health concerns, back pain. No SI. She has no motivation and apartment is a mess. Discussed this last visit and she refused to have help in her home. Today discussed again and she says she will speak to SW about it next week. Msg sent to SW. Msg sent to PCP regarding increased depression. Advanced Care Planning: POLST. Patient's Goals of Care: 1. Left knee surgery 2. Lose wt 3. Less back pain Reinforcement/Education: Reviewed HF symptom monitoring: -Weigh self [...] as advised Out patient PT at [facility] TE to PCP for refill of Tramadol, worsening feelings depression Msg to [facility] on getting freestyle or dexcom Msg to regarding help with cleaning apt Home Interventions Provided: Home Intervention: Other; Evaluation Consulted PCP/Specialist Reinforced current Plan of Care, including self-management and medication regimen Patient's 'Red Flags': 1. Wt gain of 3 lbs in 24 hrs or 5 lbs in one week 2. Increased edema 3. Increased SOB Patient Needs to Remember: Call [facility] at with any new or [...] & schedule home visit with care team physician(s)as indicated. Provider is in agreement with Plan of Care: Yes Scheduled to follow up with patient in 24 hrs. Then 3 wk visit with LES and 3 weeks after with RNCM Vera Capellan RN 10/02/2020 8:59 AM documented in this encounter Plan of Treatment Upcoming Encounters Date Type Specialty Care Team Description 10/03/2020 Telemedicine Nephrology Erik Lenz MD [address] [place] [address] [phone] 10/03/2020 Scheduled Telephone [facility], [facility] [address] [place] [address] [phone] 10/10/2020 Telemedicine Pain Management Cousinthaddeus, Raj Nolne DO [address] [place] [address] [phone] 10/21/2020 Home Visit Family Medicine Magaly Morales, [facility] Technologist [address] [place] [address] 11/06/2020 Home Visit [facility] Vera Capellan, RN [address] [place] [address] [phone] 11/13/2020 Office Visit Family Medicine Kevin Whiteside, DO [address] [place] [address] [phone] 11/19/2020 Office Visit Pharmacy [facility] [place] [address] [place] [address] 01/08/2021 Office Visit Orthopedics Zack Teague, DO [address] [place] [address] [phone] 02/02/2021 Office Visit Cardiology Rey Woodall MD [address] [place] [address] [phone] 08/18/2021 Office Visit Pulmonary Celsa Tafoya CRNP [address] [place] [address] [phone] Health Maintenance Due Date Last Done Comments Zoster Vaccines (3 of 3) 01/02/2020 11/07/2019, 11/24 Pneumococcal Vaccine: 65+ Years (1 of 1 - PPSV23) 2020 08/22/2009, 06/15/2006 DIABETES-HGBA1C EVERY 6 MONTHS 07/24/2020 01/23/2020, 11/07/2019, 08/09/2019, Additional history exists CKD GFR USE SMARTSET 02361 11/06/202005/06, 03/13/2020, 03/07/2020, Additional history exists DIABETES-FOOT EXAM 11/07/2020 11/07/2019, 0 01/01/2019, 12/29/2017, Additional history exists CKD PHOS USE SMARTSET 89427 12/23/2020 03/3 , 11/07/2019, 12/29/2017, Additional history exists DIABETES-URINE MICROALBUMIN EVERY 12 MONTHS 12/23/2020 12/24/2019, 11/30/2019, 05/24/2019, Additional history exists Yearly B-12 01/22/2021 01/23/2020, 02/24, 05/16/2018 DIABETES-EYE EXAM 04/07/2021 04/07/2020, , 02/24/2010 (Done elsewhere), Additional history exists CKD HGB USE SMARTSET 25635 05/06/202105/06, 03/13/2020, 11/30/2019, Additional history exists BREAST [...] Documents on File Type Date Recorded 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
--- OUTSIDE RECORDS SUMMARY | 2023-06-01 05:16 | External Medical Summary | Summary of Care ---
Author Name Unknown Organization [place] [address] Care Team Providers Care Billboard Erector Name Role Phone Kevin Whiteside DO Primary Care Provider Reason for Referral * Evaluate & Treat - Unlimited Visits (Within 10 days (routine)) Status Reason Specialty Diagnoses / Procedures Referred By Contact Referred To Contact Authorized Specialty Services Required Physical Therapy / Physical Medicine And Rehab Diagnoses Spinal stenosis of lumbar region without neurogenic claudication Lumbar radiculopathy Medina Fuentes PA-C [address] [place] [address] Reason for Visit * Reason Comments Back Pain fall this morning, n ow back pain, bilat leg pain. Weakness. Off balance. Encounter Details Date Type Department Care Team Description 09/04/2020 Office Visit Family Practice [facility] [address] [facility] [place] [address] Medina Fuentes PA-C [address] [facility] [place] [address] [phone] Dysuria*; Type 2 diabetes mellitus with hemoglobin A1c goal of 7.0%-8.0% ([facility]); Spinal stenosis of lumbar region without neurogenic claudication; Lumbar radiculopathy; Morbid obesity due to excess calories ([facility]); Chronic pain of right knee; Yeast infection Allergies Active Allergy Reactions Severity Noted Date [...] 3 12/18/2019 Active levothyroxine (LEVOXYL) 200 MCG TabletIndications:P ostsurgical [...] 3 02/26/2020 Active levothyroxine (LEVOXYL) 25 MCG TabletIndications:P ostsurgical hypothyroidism [...] 3 03/13/2020 Active DULoxetine (CYMBALTA) 60 MG CPEPIndications:Fib romyalgia,Moderate [...] (BMI) of 50.0 to 59.9 in adult ([facility]),Hypoxemia,ELISSA (obstructive sleep apnea),HTN, goal below 140/80 Take [...] Reported on 07/17/2020 Blood Glucose Monitoring Suppl (LK FREEMANTOUCH ULTRA 2) w/Device KIT Use to test [...] MG TabletIndications:C hronic diastolic congestive heart failure ([facility] XL)Indications:Mild episode of recurrent major depressive disorder ([facility]) Take 1 Tab by mouth [...] 08/26/2020 Active Fluconazole 150 MG Oral Tablet (DIFLUCAN)Indicatio ns:Yeast infection Take 1 Tab by mouth once for 1 dose. 1 Tab 0 09/04/2020 0 Active Cyclobenzaprine HCl 10 MG Oral Tablet (FLEXERIL)Indicatio ns:Spinal stenosis of lumbar region without neurogenic claudication,Lumbar radiculopathy TAKE ONE TABLET BY MOUTH AT BEDTIME NEEDED FOR SPASM 30 Tab 0 09/04/2020 Active Cyclobenzaprine HCl 10 MG Oral Tablet (FLEXERIL) TAKE ONE TABLET BY MOUTH AT BEDTIME NEEDED FOR SPASM 90 Tab 3 07/21/2020 0 Discontinue d(Refill) documented as of this [...] 10/14/2014 Overview: ICD-10 update of inactive term [place] filter in place 08/19/2014 History of pulmonary [...] Sign Reading Time Taken Comments Blood Pressure 154/72 09/04/2020 9:46 AM EST Pulse 100 09/04/2020 9:46 AM EST Temperature 35.7 C (96.3 F) 09/04/2020 9:46 AM ES T Respiratory Rate - - Oxygen Saturation - - Inhaled Oxygen Concentration - - Weight - - Height - - Body Mass Index - - documented in this encounter Progress Notes * Medina Fuentes PA-C - 09/04/2020 10:27 AM EST HPI: Stephanie Camp is a 65 year old female with past medical history significant for uncontrolled type 2 diabetes mellitus, morbid obesity, fibromyalgia, hypertension, ELISSA, depression, chronic diastolic congestive heart failure who presents to clinic for evaluation of ongoing low back pain. Notes that over the last few weeks the back pain has been getting worse. Reports that she has had MRI inthe past-reviewed today. She has seen Dr. rao in pain management and received an injection in April which seemed to work for approximately 3 months. It did cause an elevation in her blood glucose levels and it was decided to do a smaller dose of steroid during her injection on 07/28/2020. Notes that this injection only helped for maybe a day or so. Since then her back pain has been getting worse. She also complains of radicular symptoms bilaterally. No bowel or bladder dysfunction, saddle anesthesia. No nausea or vomiting. She is currently using tramadol 50 mg prior to bed. She was givena prescription Vicodin in late June but says she had a bad reaction to this after taking only half a pill and was seen in the ER for confusion. She does typically take Flexeril for her back pain and muscle spasms, but does not have any of this at home. Notes that she did do physical therapy earlier this year and it helped significantly. Feels like she has some burning with urination. Thinks she has a yeast infection. She denies any frequency, urgency, hematuria. No fevers, chills, abdominal pain. Notes she did have a fall today. Says that she got up to go to the bathroom and her leg gave out onher causing her to fall forwards onto her hands and knees. She was able to catch herself with her hands, but felt like it did jar her back somewhat. Just feel stiff now. She did not hit her head and remembers the entire event. ROS: See HPI for positives and negatives. Patient denies additional complaints. 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 Vasculitis ([facility]) I77.6 Primary osteoarthritis of left knee M17.12 Spinal stenosis of lumbar region without neurogenic claudication M48.061 Past Surgical History: Procedure Laterality Date ARTHROPLASTY KNEE TOTAL Right 07/24/14 R COLONOSCOPY, DIAGNOSTIC (RECTUM) 02/18/2016 normal, repeat 10 yrs/[facility] COLONOSCOPY, GI REFERRAL OP 01/28/06 diverticulosis--repeat 10 years INCISION OF [place], PLANNED 06/03/2011 TRACHEOSTOMY PLANNED performed by DANNY HOLDER at OR [facility] INJECT DX/THER SUBSTANCE INTERLAMINAR LUMBAR/SACRAL W IMAGE GUIDE 05/26/2020 INJECTION SPINE LUMBAR OR SACRAL performed by Raj Rao DO at OR [facility] KNEE ARTHROSCOPY/DEBRIDEMENT 07/[address] PERMANENT GASTROSTOMY TUBE 09/06/09 GASTROSTOMY WITH CONSTUCTION GASTRIC TUBE performed by AMADOU NUNEZ at OR [facility] REMOVAL OF THYROID GLAND 06/15/2011 THYROIDECTOMY INCLUDING SUBSTERNAL THYROID CERVICAL APPROACH performed by DANNY HOLDER at OR [facility] REMOVE GALLBLADDER 09/06/09 CHOLECYSTECTOMY performed by AMADOU NUNEZ at OR [facility] REPAIR RECURRENT INCISIONAL HERNIA 1998 REVISION OF COLOSTOMY, SIMPLE 1997 SACROILIAC JOINT INJECT W/GUIDANCE 07/28/2020 INJECTION SACROILIAC JOINT performed by Raj Rao DO at OR [facility] SUTURE, LARGE INTESTINE W/COLOSTOMY 1996 perforation R colon with colostomy VENA CAVA FILTER/LIGATION/CLIP 08/19/09 Frank filter placement through the right femoral 08/19/[address] Lerma at [facility] Review of patient's allergies indicates: Allergen Reactions Jardiance [Empagliflozin] Other (Please comment) 3 yeast infections in 6 weeks after starting Codeine hallucination Hay Fever [Pollen] Heparin Heparin Induced Thrombocytopenia Hydrocodone Neuro complications (Please comment) Morphine And Related Hallucinations Tetanus Toxoid Other (Please comment) Passed out Current Outpatient Medications Medication Sig Dispense Refill Cyclobenzaprine HCl 10 MG Oral Tablet (FLEXERIL) TAKE ONE TABLET BY MOUTH AT BEDTIME NEEDED FOR SPASM 30 Tab 0 Fluconazole 150 MG Oral Tablet (DIFLUCAN) Take 1 Tab by mouth once for 1 dose. 1 Tab 0 clonazePAM 0.5 MG Oral Tablet [...] once weekly 6 mL 1 Glucose Blood (LK FREEMANTOUCH ULTRA BLUE) STRP Check sugars 3-4 times [...] heart failure managing provider. 1 Each 0 DULoxetine (CYMBALTA) 30 MG CPEP Take 1 Cap by mouth daily. Take along with the 60mg dose for totally of 90mg daily. Do not cut, crush or chew 90 Cap 3 DULoxetine (CYMBALTA) 60 MG CPEP Take 1 Cap by mouth daily. Along with 30 mg capsule to total 90 mg daily. 90 Cap 3 metoprolol tartrate (LOPRESSOR) 25 MG Tablet Take 0.5 Tabs by mouth 2 times a day. 90 Tab 3 rOPINIRole (REQUIP) 2 MG Tablet Take 1 Tab by mouth at bedtime. 90 Tab 3 levothyroxine (LEVOXYL) 25 MCG Tablet TAKE ONE TABLET BY MOUTH IN THE MORNING AT LEAST 30 MINUTES PRIOR TO BREAKFAST OR OTHER MEDS 90 Tab 1 metolazone (ZAROXOLYN) 2.5 MG Tablet Take as directed by physician 5 Tab 0 potassium chloride ER 10 MEQ TBCR Take one 3 days per week 30 Tab 3 ACCU-CHEK SOFTCLIX LANCETS MISC Test blood sugar three or four times daily as directed 400 Each3 levothyroxine (LEVOXYL) 200 MCG Tablet TAKE ONE [...] times a day as needed for Constipation. There are no exam notes on file for this visit. EXAM: BP 154/72 | Pulse 100 | Temp 35.7 C (96.3 F) (Tympanic) | LMP 03/11/2003 General: Patient is a 65-year-old female who is awake alert and oriented x3. Patient is in no acutedistress but seems mildly uncomfortable Skin: No rashes. HEENT: Head is atraumatic, normocephalic. PERRLA. Sclerae anicteric. Tongue is midline. Mucous membranes moist. Neck is supple. No lymphadenopathy. Cardiovascular: Regular rate and rhythm. S1 and S-2 appreciated. No murmurs. Lungs: Clear to auscultation bilaterally. No wheezes, rales, rhonchi. Abdomen: Soft, nontender, nondistended. Extremities: Well perfused. No peripheral edema. Neuro: Walks with a cane Psych: Appropriate mood and affect. Back: Tender to palpation primarily on the right and left SI joints along with the paraspinal muscles the entire length of the spine. No pinpoint bony spinous process tenderness. Strength is 5/5 in hip flexion, extension, abduction, adduction, knee flexion, extension, ankle dorsiflexion and plantar flexion. Sensation intact to light touch bilaterally on the lower extremities. Pulses are normal on the lower extremities bilaterally. ASSESSMENT/PLAN Dysuria (Primary) - SITE DIP AUTO(27096) Likely due to yeast infection. Dip negative for urinary tract infection today. Type 2 diabetes mellitus with hemoglobin A1c goal of 7.0%-8.0% ([facility]) Spinal stenosis of lumbar region without neurogenic claudication - PHYSICAL THERAPY REFERRAL OP - Cyclobenzaprine HCl 10 MG Oral Tablet (FLEXERIL); TAKE ONE TABLET BY MOUTH AT BEDTIME NEEDED FOR SPASM Refill of Flexeril given today. She will take her tramadol 50 mg 3 times per day as directed instead of just at night. If she is still having increased pain at night, could consider increasing to 100mg at bedtime. She should have enough pills at home since she has only been taking them at bedtime recently. Avoid Vicodin since she had reaction to this in the past. Can do heat and ice as well. We will try and do physical therapy again since she had good improvement previously. She is going to call pain management and see them again, though it is pretty short interval for injection. No indication for new x-ray today. Lumbar radiculopathy - PHYSICAL THERAPY REFERRAL OP - Cyclobenzaprine HCl 10 MG Oral Tablet (FLEXERIL); TAKE ONE TABLET BY MOUTH AT BEDTIME NEEDED FOR SPASM Morbid obesity due to excess calories (HCC) Chronic pain of right knee Yeast infection - Fluconazole 150 MG Oral Tablet (DIFLUCAN); Take 1 Tab by mouth once for 1 dose. Follow-up with PCP for routine care or sooner p.r.n. There are no Patient Instructions on file for this visit. Medina Fuentes PA-C Family Practice [facility] [address] [facility] [place] [address] This chart was completed in part utilizing [employer] Speech Voice Recognition Software. Grammatical errors, random word insertions, prounoun errors, and incomplete sentences are an occasional consequence of this system due to software limitations, ambient noise, and hardware issues. Any formal questions or concerns about the content, text, or information contained within the body of this dictation should be directly addressed to the provider for clarification. documented in this encounter Plan of Treatment Upcoming Encounters Date Type Specialty Care Team Description 09/05/2020 Home Visit [facility] Rema Real LSW [address] [facility] [place] [address] [phone] 09/10/2020 Office Visit Pharmacy [facility] [address] [facility] [place] [address] 09/30/2020 Office Visit Dermatology Apple Kaminski MD [address] [place] [address] [phone] 10/01/2020 Imaging Radiology 10/02/2020 [facility] Visit [facility]ellan RN [address] [facility] [place] [address] [phone] 10/03/2020 Telemedicine Nephrology Erik Lenz MD [address] [place] [address] [phone] 11/13/2020 Office Visit Family Medicine Kevin Whiteside, DO [address] [facility] [place] [address] [phone] 01/08/2021 Office Visit Orthopedics Zack Teague, DO [address] [facility] [place] [address] [phone] 02/02/2021 Office Visit Cardiology Rey Woodall MD [address] [facility] [place] [address] [phone] 08/18/2021 Office Visit Pulmonary Celsa Tafoya CRNP [address] [facility] [place] [address] [phone] Scheduled Referrals Name Type Priority Associated Diagnoses Orde r Schedule PHYSICAL THERAPY REFERRAL OP Referral Within 10 days (routine) Spinal stenosis of lumbar region without neurogenic claudication Lumbar radiculopathy Ordered: 09/04/2020 Health Maintenance Due Date Last Done Comments Zoster Vaccines (3 of 3) 01/02/2020 11/07/2019, 11/24 Pneumococcal Vaccine: 65+ Years (1 of 1 - PPSV23) 2020 08/22/2009, 06/15/2006 BREAST CANCER SCREENING DISCUSSION YEARLY AGES 40-75 07/10/2020 07/10/2019, 06/23/2018, 05/09/2015, Additional history exists DIABETES-HGBA1C EVERY 6 MONTHS 07/24/2020 01/23/2020, 11/07/2019, 08/09/2019, Additional history exists CKD GFR USE SMARTSET 54623 11/06/202005/06, 03/13/2020, 03/07/2020, Additional history exists DIABETES-FOOT EXAM 11/07/2020 11/07/2019, 0 01/01/2019, 12/29/2017, Additional history exists CKD PHOS USE SMARTSET 52095 12/23/2020 03/, 11/07/2019, 12/29/2017, Additional history exists DIABETES-URINE MICROALBUMIN EVERY 12 MONTHS 12/23/2020 12/24/2019, 11/30/2019, 05/24/2019, Additional history exists Yearly B-12 01/22/2021 01/23/2020, 02/24, 05/16/2018 DIABETES-EYE EXAM 04/07/2021 04/07/2020, , 02/24/2010 (Done elsewhere), Additional history exists CKD HGB USE SMARTSET 96552 05/06/202105/06, 03/13/2020, 11/30/2019, Additional history exists *DEPRESSION [...] Procedure Name Priority Date/Time Associated Diagnosis Comments SITE DIP AUTO(21959) Routine 09/04/2020 Dysuria documented in this encounter Results * SITE DIP AUTO(94441) (09/04/2020) COLOR, UA yellow yellow - clive CLARITY, UA clear clear - clear GLUCOSE, UA neg neg - neg BILIRUBIN, UA neg neg - neg KETONE, UA neg neg - neg SPECIFIC GRAVITY 1.010 1.003 - 1.030 BLOOD, UA neg neg - neg PH, UA 5.5 5.0 - 7.5 PROTEIN, UA neg neg - neg UROBILINOGEN, UA 0.2 normal - normal NITRITE, UA neg neg - neg ESTERASE, UA trace neg - neg Specimen Urine documented in this encounter Visit Diagnoses Diagnosis Dysuria- Primary Type 2 diabetes mellitus with hemoglobin A1c goal of 7.0%-8.0% (HCC) Spinal stenosis of lumbar region without neurogenic claudication Spinal stenosis, lumbar region, without neurogenic claudication Lumbar radiculopathy Thoracic or lumbosacral neuritis or radiculitis, unspecified Morbid obesity due to excess calories (HCC) Chronic pain of right knee Yeast infection Other and unspecified mycoses documented in this encounter Advance Directives Documents on File Type Date Recorded 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
--- OUTSIDE RECORDS SUMMARY | 2023-06-01 05:17 | External Medical Summary | Summary of Care ---
Author Name Unknown Organization [place] [address] Care Team Providers Care Phototypesetter Operator Name Role Phone Kevin Whiteside DO Primary Care Provider Reason for Visit * Reason Comments [facility]: Maintenance Encounter Details Date Type Department Care Team Description 08/11/2020 Splicing Technician [facility] [address] [facility] [place] [address] Rema Real, [facility] [place] [address] [phone] Allergies Active Allergy Reactions Severity Noted Date Comments Codeine 07/08/2014 hallucination Pollen 05/18/2019 Heparin 09/04/2009 Heparin Induced Thrombocytopenia Hydrocodone Neuro complications (Please comment) 07/28/2020 Empagliflozin Other (Please comment) Medium 05/17/2018 3 yeast infections in 6 weeks after starting Morphine And Related 09/16/1997 Hallucinations Tetanus Toxoid Other (Please comment) 06/15/2011 Passed out documented as of this encounter (statuses as of 08/11/2020) Medications Medication Sig Dispensed Refills Start Date [...] Reported on 07/17/2020 Blood Glucose Monitoring Suppl (Viking TherapeuticsUCH ULTRA 2) w/Device KIT Use to [...] with insulin 200 Each 11 06/27/2020 Active traMADol HCl 50 MG Oral Tablet (ULTRAM)Indications:C hronic pain syndrome Take 1 Tab by mouth every 8 hours as needed for Pain, Severe. 90 Tab 0 07/01/2020 Active buPROPion HCl ER (XL) 150 MG [...] diabetes clinic 81 mL 3 07/01/2020 Active clonazePAM 0.5 MG Oral Tablet (KlonoPIN)Indications :Anxiety state TAKE ONE TABLET BY MOUTH TWICE DAILY 60 Tab 0 07/16/2020 Active Cyclobenzaprine HCl 10 MG Oral Tablet (FLEXERIL) TAKE ONE TABLET BY MOUTH AT BEDTIME NEEDED FOR SPASM 90 Tab 3 07/21/2020 Active Magnesium Oxide 400 (241.3 Mg) MG [...] a day. 237 mL 1 07/28/2020 Active documented as of this encounter (statuses as of 08/11/2020) Active Problems Problem Noted Date Spinal stenosis [...] 10/14/2014 Overview: ICD-10 update of inactive term [place] filter in place 08/19/2014 History of pulmonary embolus (PE) 2013 Statin intolerance 07/16/2014 HTN, goal below 130/80 02/22/2014 Venous insufficiency 02/07/2013 ELISSA (obstructive sleep apnea) 09/16/2011 Overview: CPAP 11 cwp Mild, AHI 11.3 but with significant nocturnal hypoxemia Dicks Postsurgical hypothyroidism 06/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 documented as of this encounter (statuses as of 08/11/2020) Resolved Problems Problem Noted Date Resolved Date [...] as of this encounter (statuses as of 08/11/2020) Immunizations Name Administration Dates Next Due Pneumococcal [...] Progress Notes * Rema Real LSW - 08/11/2020 5:53 PM EST STEFANY called Stephanie to offer to schedule next month's apt and we scheduled it for 09/05/2020.. documented in this encounter Plan of Treatment Upcoming Encounters Date Type Specialty Care Team Description 08/25/2020 Office Visit Nephrology Erik [place] MD [address] [facility] [address] [place] [address] [phone] 08/28/2020 Home Visit [facility] Vera Capellan, RN [address] [place] [address] [phone] 09/03/2020 Pharmacy Pharmacy [facility] [address] [place] [address] 09/05/2020 Home Visit [facility] Rema Real LSW [address] [place] [address] [phone] 09/30/2020 Office Visit Dermatology Apple Kaminski MD [address] [facility] [place] [address] [phone] 10/01/2020 Imaging Radiology 11/13/2020 Office Visit Family Medicine Kevin Whiteside, [address] [place] [address] [phone] 11/27/2020 Office Visit Pulmonary Celsa Tafoya CRNP [address] [place] [address] [phone] 01/08/2021 Office Visit Orthopedics Zack Teague, [address] [place] [address] [phone] 02/02/2021 Office Visit Cardiology Rey Woodall MD [address] [place] [address] [phone] Health Maintenance Due Date Last Done Comments Zoster Vaccines (3 of 3) 01/02/2020 11/07/2019, 11/24 Pneumococcal Vaccine: 65+ Years (1 of 1 - PPSV23) 2020 08/22/2009, 06/15/2006 BREAST CANCER SCREENING DISCUSSION YEARLY AGES 40-75 07/10/2020 07/10/2019, 06/23/2018, 05/09/2015, Additional history exists DIABETES-HGBA1C EVERY 6 MONTHS 07/24/2020 01/23/2020, 11/07/2019, 08/09/2019, Additional history exists CKD GFR USE SMARTSET 23959 11/06/202005/06, 03/13/2020, 03/07/2020, Additional history exists DIABETES-FOOT EXAM 11/07/2020 11/07/2019, 0 01/01/2019, 12/29/2017, Additional history exists CKD PHOS USE SMARTSET 45721 12/23/2020 03/, 11/07/2019, 12/29/2017, Additional history exists DIABETES-URINE MICROALBUMIN EVERY 12 MONTHS 12/23/2020 12/24/2019, 11/30/2019, 05/24/2019, Additional history exists Yearly B-12 01/22/2021 01/23/2020, 02/24, 05/16/2018 DIABETES-EYE EXAM 04/07/2021 04/07/2020, , 02/24/2010 (Done elsewhere), Additional history exists CKD HGB USE SMARTSET 44499 05/06/202105/06, 03/13/2020, 11/30/2019, Additional history exists *DEPRESSION [...] Documents on File Type Date Recorded Patient Crime Specialist Expl 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
--- OUTSIDE RECORDS SUMMARY | 2023-06-01 05:17 | External Medical Summary | Summary of Care ---
Author Name Unknown Organization [facility] [place] [address] Care Team Providers Care Cementing Bulk Material Operator Name Role Phone Kevin Whiteside DO Primary Care Provider Reason for Visit * Reason Comments [facility]: Maintenance Encounter Details Date Type Department Care Team Description 08/28/2020 Home Visit [facility], [facility] [address] [facility] [place] [address] Vera Capellan, RN 132 [facility] [place] [address] [phone] Benign hypertensive heart and kidney disease with [...] as of this encounter (statuses as of 08/28/2020) Medications Medication Sig Dispensed Refills Start Date [...] TITRATION PLANIndications:Chron ic diastolic congestive heart failure ([facility]) If no improvement on day 3, contact [...] goal of 7.0%-8.0% ([facility]) TAKE ONE CAPSULE BY MOUTH THREE TIMES DAILY 270 Cap 0 05/20/2020 Active Additional Information Patient taking differently: 300 mg Oral TID, Taking 300mg in am and 600mg in pm, Reported on 07/17/2020 Blood Glucose Monitoring Suppl (cortical.ioTOUCH ULTRA 2) w/Device KIT Use to test BG values 1 Kit 0 05/20/2020 Active Glucose Blood (ONETOUCH ULTRA BLUE) STRP Check sugars 3-4 times daily, E11.9 400 Strip 3 05/22/2020 Active TRULICITY 1.5 MG/0.5ML SOPNIndications:DM type 2 nursing care encounter ([facility]),Uncontrolled type 2 diabetes mellitus with stage 3 [...] diabetes clinic 81 mL 3 07/01/2020 Active Cyclobenzaprine HCl 10 MG Oral Tablet [...] a day. 60 Tab 0 08/26/2020 Active documented as of this encounter (statuses as of 08/28/2020) Active Problems Problem Noted Date Spinal stenosis [...] 10/14/2014 Overview: ICD-10 update of inactive term [place] filter in place 08/19/2014 History of pulmonary embolus (PE) 2013 Statin intolerance 07/16/2014 HTN, goal below 130/80 02/22/2014 Venous insufficiency 02/07/2013 ELISSA (obstructive sleep apnea) 09/16/2011 Overview: CPAP 11 cwp Mild, AHI 11.3 but with significant nocturnal hypoxemia Dicks Postsurgical hypothyroidism 06/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 documented as of this encounter (statuses as of 08/28/2020) Resolved Problems Problem Noted Date Resolved Date [...] as of this encounter (statuses as of 08/28/2020) Immunizations Name Administration Dates Next Due Pneumococcal [...] Reading Time Taken Comments Blood Pressure 118/68 08/28/2020 8:54 AM EST Pulse 88 08/28/2020 8:54 AM EST Temperature 36.7 C (98.1 F) 08/28/2020 8:54 AM ES T Respiratory Rate 18 08/28/2020 8:54 AM EST Oxygen Saturation 94% 08/28/2020 8:54 AM EST Inhaled Oxygen Concentration - - Weight - - Height - - Body Mass Index - - documented in this encounter Progress Notes * Vera Capellan, RN - 08/28/2020 9:00 AM EST [facility] Machine Rigger Visit Date: 08/28/2020 Time: 9:15 AM Name: Stephanie Camp : 1955 Current Concerns: Patient seen for return RNCM visit She reports she has been doing ok lately but back pain is increased again. She had injection last month - going to call and see about getting another injection Denies S/S of UTI Recently diagnosed with Lyme's Disease - completed all abx's Checks bsgs 3-4x a day - ranging mid 100's to mid 200's.- still doing injections instead of pump Interested in Zientiayle or dexcom sensor - msg sent to [facility] Physical Exam: BP 118/68 | Pulse 88 | Temp 36.7 C (98.1 F) | Resp 18 | LMP 03/11/2003 | SpO2 94% Pain 3 Physical Exam Constitutional: General: She is not [...] as ordered: Yes Patient Well Being: PHQ2/9: @[id number]@ No change in living situation Denies falls Feels depression is worse because of not being able to see family on the holidays. Discussed possible med change or increase and she declines, states she just needs to get through the holidays. Advanced Care Planning: POLST. Patient's Goals of Care: 1. Left knee surgery 2. Lose wt 3. Get stronger Reinforcement/Education: Reviewed HF symptom monitoring: -Weigh self [...] prn for fluid overload-take only as advised Home Interventions Provided: Home Intervention: Other; Evaluation Reinforced current Plan of Care, including self-management and medication regimen Patient's 'Red Flags': 1. Wt gain of 3 lbs in 24 hrs or 5 lbs in one week 2. Increased sob 3. Increased edema Patient Needs to Remember: Call [facility] at with any new or worsening health concerns or problems, red flag symptoms. Referrals Needed: Other none Follow Up: Patient encouraged to call the intake phone number for all urgent but not emergent issues. Is the patient new to [facility] within the last 30 days? No, Assess appropriateness for upcoming telehealth visits. Cancel telehealth visits & schedule home visit with care seal delivery vehicle team technician(s)as indicated. Provider is in agreement with Plan of Care: Yes Scheduled to follow up with patient in 4-5 weeks. Vera Capellan RN 08/28/2020 9:15 AM documented in this encounter Plan of Treatment Upcoming Encounters Date Type Specialty Care Team Description 09/03/2020 Pharmacy Pharmacy [facility] [place] [address] [place] [address] 09/05/2020 [facility] Visit [facility] Rema Real LSW [address] [place] [address] [phone] 09/09/2020 Telemedicine Nephrology Erik Lenz MD [address] [place] [address] [phone] 09/30/2020 Office Visit Dermatology Apple Kaminski MD [address] [place] [address] [phone] 10/01/2020 Imaging Radiology 10/02/2020 Home Visit [facility] Vera Capellan RN [address] [address] [phone] 11/13/2020 Office Visit Family Medicine Kevin Whiteside, [address] [place] [address] [phone] 01/08/2021 Office Visit Orthopedics Zack Teague, [address] [place] [address] [phone] 02/02/2021 Office Visit Cardiology Rey Woodall MD [address] [place] [address] [phone] 08/18/2021 Office Visit Pulmonary Celsa Tafoya CRNP [address] [place] [address] [phone] Health Maintenance Due Date Last Done Comments Zoster Vaccines (3 of 3) 01/02/2020 11/07/2019, 11/24 Pneumococcal Vaccine: 65+ Years (1 of 1 - PPSV23) 2020 08/22/2009, 06/15/2006 BREAST CANCER SCREENING DISCUSSION YEARLY AGES 40-75 07/10/2020 07/10/2019, 06/23/2018, 05/09/2015, Additional history exists DIABETES-HGBA1C EVERY 6 MONTHS 07/24/2020 01/23/2020, 11/07/2019, 08/09/2019, Additional history exists CKD GFR USE SMARTSET 77681 11/06/202005/06, 03/13/2020, 03/07/2020, Additional history exists DIABETES-FOOT EXAM 11/07/2020 11/07/2019, 0 01/01/2019, 12/29/2017, Additional history exists CKD PHOS USE SMARTSET 15062 12/23/2020/, 11/07/2019, 12/29/2017, Additional history exists DIABETES-URINE MICROALBUMIN EVERY 12 MONTHS 12/23/2020 12/24/2019, 11/30/2019, 05/24/2019, Additional history exists Yearly B-12 01/22/2021 01/23/2020, 02/24, 05/16/2018 DIABETES-EYE EXAM 04/07/2021 04/07/2020, , 02/24/2010 (Done elsewhere), Additional history exists CKD HGB USE SMARTSET 32340 05/06/202105/06, 03/13/2020, 11/30/2019, Additional history exists *DEPRESSION [...] Documents on File Type Date Recorded Patient Journeyman Pipe Fitter Expl 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
--- OUTSIDE RECORDS SUMMARY | 2023-06-01 05:17 | External Medical Summary | Summary of Care ---
Author Name Unknown Organization [place] [address] Care Team Providers Care Technical Manager Name Role Phone Kevin Whiteside DO Primary Care Provider Reason for Visit * Reason Onset Date Comments Appointment 07/31/2020 sleep ret Encounter Details Date Type Department Care Team Description 07/31/2020 Telephone Pul[facility] Medicine[facility] [address] Celsa Tafoya CRNP 132 [facility] [place] [id number] Appointment (sleep ret) Allergies Active Allergy Reactions Severity Noted Date Comments Codeine 07/08/2014 hallucination Pollen 05/18/2019 Heparin 09/04/2009 Heparin Induced Thrombocytopenia Hydrocodone Neuro complications (Please comment) 07/28/2020 Empagliflozin Other (Please comment) Medium 05/17/2018 3 yeast infections in 6 weeks after starting Morphine And Related 09/16/1997 Hallucinations Tetanus Toxoid Other (Please comment) 06/15/2011 Passed out documented as of this encounter (statuses as of 08/01/2020) Medications Medication Sig Dispensed Refills Start Date [...] of 7.0%-8.0% ([facility]) TAKE ONE CAPSULE BY MOUTH THREE TIMES DAILY 270 Cap 0 05/20/2020 Active Additional Information Patient taking differently: 300 mg Oral TID, Taking 300mg in am and 600mg in pm, Reported on 07/17/2020 Blood Glucose Monitoring Suppl (DediServeTOUCH ULTRA 2) w/Device KIT Use to test [...] as of this encounter (statuses as of 08/01/2020) Active Problems Problem Noted Date Spinal stenosis [...] as of this encounter (statuses as of 08/01/2020) Resolved Problems Problem Noted Date Resolved Date [...] as of this encounter (statuses as of 08/01/2020) Immunizations Name Administration Dates Next Due Pneumococcal [...] encounter Miscellaneous Notes * Telephone Encounter - Xavier Peterson OSA - 08/01/2020 10:54 AM EST LMOM * Telephone Encounter - Rema Barroso OSA - 07/31/2020 7:43 AM EST Elissa 1 year as televideo, cancel november appointment (Michelet) documented in this encounter Plan of Treatment Upcoming Encounters Date Type Specialty Care Team Description 08/06/2020 Office Visit Pharmacy [facility], [facility] [place] [address] [place] [address] 08/07/2020 Home Visit Family Medicine Magaly Morales, [facility] Coordinator [address] [place] [address] [phone] 08/08/2020 Home Visit [facility] Rema Real LSW [address] [place] [address] [phone] 08/25/2020 Office Visit Nephrology Erik Lenz MD [address] [place] [address] [phone] 08/28/2020 Home Visit [facility] Vera Capellan RN [address] [place] [address] [phone] 09/30/2020 Office Visit Dermatology Apple Kaminski MD [address] [place] [address] [phone] 10/01/2020 Imaging Radiology 11/13/2020 Office Visit Family Medicine Kevin Whiteside, [address] [place] [address] [phone] 11/27/2020 Office Visit Pulmonary Celsa Tafoya CRNP [address] [place] [address] [phone] 01/08/2021 Office Visit Orthopedics Zack Teague, [address] [place] [address] [phone] 02/02/2021 Office Visit Cardiology Rey Woodall MD [address] [place] [address] [phone] Health Maintenance Due Date Last Done Comments Zoster Vaccines (3 of 3) 01/02/2020 11/07/2019, 11/24 Pneumococcal Vaccine: 65+ Years (1 of 1 - PPSV23) 2020 08/22/2009, 06/15/2006 BREAST CANCER SCREENING DISCUSSION YEARLY AGES 40-75 07/10/2020 07/10/2019, 06/23/2018, 05/09/2015, Additional history exists DIABETES-HGBA1C EVERY 6 MONTHS 07/24/2020 01/23/2020, 11/07/2019, 08/09/2019, Additional history exists CKD GFR USE SMARTSET 50387 11/06/202005/06, 03/13/2020, 03/07/2020, Additional history exists DIABETES-FOOT EXAM 11/07/2020 11/07/2019, 0 01/01/2019, 12/29/2017, Additional history exists CKD PHOS USE SMARTSET 16726 12/23/2020/, 11/07/2019, 12/29/2017, Additional history exists DIABETES-URINE MICROALBUMIN EVERY 12 MONTHS 12/23/2020 12/24/2019, 11/30/2019, 05/24/2019, Additional history exists Yearly B-12 01/22/2021 01/23/2020, 02/24, 05/16/2018 DIABETES-EYE EXAM 04/07/2021 04/07/2020, , 02/24/2010 (Done elsewhere), Additional history exists CKD HGB USE SMARTSET 69464 05/06/202105/06, 03/13/2020, 11/30/2019, Additional history exists *DEPRESSION [...] Documents on File Type Date Recorded Patient Wallet Assembler Expl 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
--- OUTSIDE RECORDS SUMMARY | 2023-06-01 05:17 | External Medical Summary | Summary of Care ---
Author Name Unknown Organization [place] [address] Care Team Providers Care Drain Cleaner Name Role Phone Kevin Whiteside DO Primary Care Provider Reason for Visit * Reason Onset Date Comments Medication Question 07/01/2020 Encounter Details Date Type Department Care Team Description 07/01/2020 Telephone Family Practice [facility] [address] [facility] [place] [address] Kevin Whiteside DO [address] [facility] [place] [id number] Medication Question Allergies Active Allergy Reactions Severity Noted Date Comments Codeine 07/08/2014 hallucination Pollen 05/18/2019 Heparin 09/04/2009 Heparin Induced Thrombocytopenia Hydrocodone Neuro complications (Please comment) 07/28/2020 Empagliflozin Other (Please comment) Medium 05/17/2018 3 yeast infections in 6 weeks after starting Morphine And Related 09/16/1997 Hallucinations Tetanus Toxoid Other (Please comment) 06/15/2011 Passed out documented as of this encounter (statuses as of 09/03/2020) Medications Medication Sig Dispensed Refills Start Date [...] 0 Active Nortriptyline HCl (PAMELOR) 50 MG CapsuleIndications :Fibromyalgia Take 1 Cap by mouth at bedtime. 90 Cap 3 0 Active levothyroxine (LEVOXYL) 200 MCG TabletIndications: Postsurgical hypothyroidism TAKE ONE TABLET BY MOUTH EVERY DAY AT LEAST 30 MINUTES BEFORE BREAKFAST OR OTHER MEDS 90 Tab 3 0 Active traZODone (DESYREL) 50 MG [...] per week 30 Tab 3 0 Active levothyroxine (LEVOXYL) 25 MCG TabletIndications: Postsurgical hypothyroidism TAKE ONE TABLET BY MOUTH IN THE MORNING AT LEAST 30 MINUTES PRIOR TO BREAKFAST OR OTHER MEDS 90 Tab 1 0 Active DULoxetine (CYMBALTA) 30 MG CPEP Take 1 Cap by mouth daily. Take along with the 60mg dose for totally of 90mg daily. Do not cut, crush or chew 90 Cap 3 0 Active DULoxetine (CYMBALTA) 60 MG CPEPIndications:Fi bromyalgia,Moderat [...] Reported on 07/17/2020 Blood Glucose Monitoring Suppl (Swift EndeavorTOUCH ULTRA 2) w/Device KIT Use to test BG values 1 Kit 0 0 Active Glucose Blood (ONETOUCH ULTRA BLUE) STRP Check sugars 3-4 times daily, E11.9 400 Strip 3 0 Active TRULICITY 1.5 MG/0.5ML SOPNIndications:DM type 2 nursing care encounter (HCC),Uncontrolled type 2 diabetes mellitus with stage 3 chronic kidney disease, with long-term current use of insulin ([facility]) inject 1.5mg (one pen) under the skin once weekly 6 mL 1 0 Active furosemide (LASIX) 40 MG TabletIndications: Chronic diastolic congestive heart failure (HCC) Take 2 [...] diabetes clinic 81 mL 3 0 Active cyclobenzaprine (FLEXERIL) 10 MG Tablet TAKE ONE TABLET BY MOUTH AT BEDTIME NEEDED FOR MUSCLE SPASM 90 Tab 2 8 07/21/20 20 Discontinued Magnesium Oxide 400 (241.3 mg) Tablet Take 400 mg by mouth daily. 90 Tab 3 0 07/24/20 20 Discontinued(Re fill) clonazePAM (KLONOPIN) 0.5 MG TabletIndications: Anxiety state TAKE ONE TABLET BY MOUTH TWICE DAILY 60 Tab 0 0 07/16/20 20 Discontinued traMADol HCl 50 MG Oral Tablet (ULTRAM)Indication s:Chronic pain syndrome Take 1 Tab by mouth every 8 hours as needed for Pain, Severe. 90 Tab 0 0 08/25/20 20 Discontinued(Re fill) documented as of this encounter (statuses as of 09/03/2020) Active Problems Problem Noted Date Spinal stenosis [...] 10/14/2014 Overview: ICD-10 update of inactive term [place] filter in place 08/19/2014 History of pulmonary embolus (PE) 2013 Statin intolerance 07/16/2014 HTN, goal below 130/80 02/22/2014 Venous insufficiency 02/07/2013 ELISSA (obstructive sleep apnea) 09/16/2011 Overview: CPAP 11 cwp Mild, AHI 11.3 but with significant nocturnal hypoxemia Dicks Postsurgical hypothyroidism 06/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 documented as of this encounter (statuses as of 09/03/2020) Resolved Problems Problem Noted Date Resolved Date [...] as of this encounter (statuses as of 09/03/2020) Immunizations Name Administration Dates Next Due Pneumococcal [...] file Not on file Not on file COVID-19 Exposure Response Date Recorded In the last month, have you been in contact with someone who was confirmed or suspected to have Coronavirus / COVID-19? No / Unsure 06/03/2020 10:46 AM EDT documented as of this encounter Miscellaneous Notes * Telephone Encounter - Kumar Moreland, window shade cloth sewer - 07/03/2020 4:20 PM EDT Angi from [facility] called in to see if Dr Whiteside responded to the message she left earlier. I informed her about the message below. Thank you, Kumar Moreland Cable Splicer Assistant [facility] 07/03/2020, 4:20 PM * Telephone Encounter - Rose [facility] - 07/03/2020 4:15 PM EDT Correct, she cannot afford insulin under part B and therefore will not be doing her insulin pump. The insulin we are ordering needs to be billed under part D not part B, as she will be administering via a pen or needles not the pump. Rose Ly * Telephone Encounter - Kevin Whiteside DO - 07/03/2020 3:39 PM EDT From my understanding patient cannot afford the pump and has not been using it and does not plan onusing it unless it became a cheaper option. * Telephone Encounter - Nehal Ray CPhT - 07/03/2020 12:33 PM EDT Angi from [facility] calling in to see if pt is still going to be on the insulin pump or if she is notgoing to be using the pump. There is currently a restriction on pt's insurance acct where since shewas on the pump, insulin Rx's were going under Part B. They can only remove this restriction to process insulin under Part D if they get confirmation from the office that pt will not be using the pump. Can be called in to [phone]. Please review and advise. Thank You, Nehal Ray CPhT [facility] 07/03/2020, 12:35 PM * Telephone Encounter - Stephany Zelaya RN - 07/01/2020 3:03 PM EDT Thank you * Telephone Encounter - Rose [facility] - 07/01/2020 12:47 PM EDT She may have to do vials if that is cheaper, she has hit the donut hole and is no longer on medicaid just medicare which is what is causing this cost elevation. See if Magaly can help but if not that might be her only option. Thanks, Rose * Telephone Encounter - Stephany Zelaya RN - 07/01/2020 12:35 PM EDT Magaly, Could you please assist Stephanie with the cost of her insulin at this time. Thanks, Kala * Telephone Encounter - Kevin Whiteside DO - 07/01/2020 12:29 PM EDT [facility] - is there anything I can write to help cover the cost of the Novolog Pens that she is on? She can't afford the 500$ that it would cost to go back to that?... any patient assistance programs? documented in this encounter Plan of Treatment Upcoming Encounters Date Type Specialty Care Team Description 09/04/2020 Office Visit Family Medicine Medina Fuentes PA-C [address] [facility] [address] [phone] 09/05/2020 [facility] Visit [facility] Rema Real LSW [address] [place] [address] [phone] 09/10/2020 Office Visit Pharmacy [facility] [address] [place] [address] 09/30/2020 Office Visit Dermatology Apple Kaminski MD [address] [place], [place] [address] [address] [phone] 10/01/2020 Imaging Radiology 10/02/2020 Home Visit [facility] Vera Capellan RN [address] [place] [address] [phone] 10/03/2020 Telemedicine Nephrology Erik Lenz MD [address] [facility] [place] [address] [phone] 11/13/2020 Office Visit Family Medicine Kevin Whiteside, DO [address] [place] [address] 01/08/2021 Office Visit Orthopedics Zack Teague, DO [address] [place] [id number] 02/02/2021 Office Visit Cardiology Rey Woodall MD [address] [place] [address] 08/18/2021 Office Visit Pulmonary Celsa Tafoya [...] Additional history exists CKD GFR USE SMARTSET 75145 11/06/202005/06, 03/13/2020, 03/07/2020, Additional history exists DIABETES-FOOT EXAM 11/07/2020 11/07/2019, 0 01/01/2019, 12/29/2017, Additional history exists CKD PHOS USE SMARTSET 26202 12/23/2020 03/3 , 11/07/2019, 12/29/2017, Additional history exists DIABETES-URINE MICROALBUMIN EVERY 12 MONTHS 12/23/2020 12/24/2019, 11/30/2019, 05/24/2019, Additional history exists Yearly B-12 01/22/2021 01/23/2020, 02/24, 05/16/2018 DIABETES-EYE EXAM 04/07/2021 04/07/2020, , 02/24/2010 (Done elsewhere), Additional history exists CKD HGB USE SMARTSET 54197 05/06/202105/06, 03/13/2020, 11/30/2019, Additional history exists *DEPRESSION [...] Documents on File Type Date Recorded Patient Replanter Expl 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
--- OUTSIDE RECORDS SUMMARY | 2023-06-01 05:17 | External Medical Summary | Summary of Care ---
Author Name Unknown Organization [place] [address] Care Team Providers Care Educational Speech Language Clinician Name Role Phone Migue Whiteside DO Primary Care Provider Reason for Visit * Reason Onset Date Comments Medication Refill 08/25/2020 Encounter Details Date Type Department Care Team Description 08/25/2020 Refill [facility] [address] [facility] [place] [address] Migue Whiteside DO [address] [facility] [place] [address] [phone] Chronic pain syndrome; Anxiety state Allergies Active [...] as of this encounter (statuses as of 08/26/2020) Medications Medication Sig Dispensed Refills Start Date [...] Reported on 07/17/2020 Blood Glucose Monitoring Suppl ([employer] TeamTOUCH ULTRA 2) w/Device KIT Use to test [...] a day. 60 Tab 0 08/26/2020 Active traMADol HCl 50 MG Oral Tablet (ULTRAM)Indications :Chronic pain syndrome Take 1 Tab by mouth every 8 hours as needed for Pain, Severe. 90 Tab 0 07/01/2020 0 Discontinue d(Refill) clonazePAM 0.5 MG Oral Tablet (KlonoPIN)Indicatio ns:Anxiety state TAKE ONE TABLET BY MOUTH TWICE DAILY 60 Tab 0 07/16/2020 0 Discontinue d(Refill) documented as of this encounter (statuses as of 08/26/2020) Active Problems Problem Noted Date Spinal stenosis [...] 10/14/2014 Overview: ICD-10 update of inactive term [place] filter in place 08/19/2014 History of pulmonary embolus (PE) 2013 Statin intolerance 07/16/2014 HTN, goal below 130/80 02/22/2014 Venous insufficiency 02/07/2013 ELISSA (obstructive sleep apnea) 09/16/2011 Overview: CPAP 11 cwp Mild, AHI 11.3 but with significant nocturnal hypoxemia Dicks Postsurgical hypothyroidism 06/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 documented as of this encounter (statuses as of 08/26/2020) Resolved Problems Problem Noted Date Resolved Date [...] as of this encounter (statuses as of 08/26/2020) Immunizations Name Administration Dates Next Due Pneumococcal [...] Telephone Encounter - Migue Whiteside DO - 08/26/2020 4:30 PM EST Signed Prescriptions: Disp Refills traMADol HCl 50 MG Oral Tablet (ULTRAM) 90 Tab 0 Sig: Take 1 Tab by mouth every 8 hours as needed for Pain, Severe. Authorizing Provider: MIGUE WHITESIDE clonazePAM 0.5 MG Oral Tablet (KlonoPIN) 60 Tab 0 Sig: Take 1 Tab by mouth 2 times a day. Authorizing Provider: MIGUE WHITESIDE * Telephone Encounter - Manny Tamayo LPN - 08/26/2020 11:38 AM EST Pending Prescriptions: Disp Refills traMADol HCl 50 MG Oral Tablet (ULTRAM) 90 Tab 0 Sig: Take 1 Tab by mouth every 8 hours as needed for Pain, Severe. clonazePAM 0.5 MG Oral Tablet (KlonoPIN) 60 Tab 0 Sig: Take 1 Tab by mouth 2 times a day. Last Office/Telemedicine Visit: 07/28/2020 Next Office Visit: 11/13/2020 Scheduled Provider(s): Migue Whiteside DO Last date the medication was ordered: 07/01/2020, 07/16/2020 Patient Active Problem List Diagnosis Code Dyslipidemia E78.5 ELLIE (generalized anxiety disorder) F41.1 Postsurgical hypothyroidism E89.0 ELISSA (obstructive sleep apnea) G47.33 Venous insufficiency I87.2 HTN, goal below 130/80 I10 History of pulmonary embolus (PE) Z86.711 Statin intolerance Z78.[address] Z95.828 Type 2 diabetes mellitus with hemoglobin A1c goal of 7.0%-8.0% (HCC) E11.9 Fibromyalgia M79.7 Abnormality of gait R26.9 Restless legs syndrome G25.81 Gastroesophageal reflux disease with esophagitis K21.00 Morbid obesity with BMI of 50.0-59.9, adult ([facility]) E66.01, Z68.43 Controlled substance agreement signed Z79.899 Chronic diastolic congestive heart failure ([facility]) I50.32 Mild episode of recurrent major depressive disorder ([facility]) F33.0 Lumbar radiculopathy M54.16 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, NYHA class 1 and CKD stage 3 ([facility]) I13.0, I50.30, N18.30 Chronic respiratory failure with hypoxia ([facility]) J96.11 Hyperparathyroidism, secondary renal ([facility]) N25.81 Vasculitis ([facility]) I77.6 Primary osteoarthritis of left knee M17.12 Spinal stenosis of lumbar region without neurogenic claudication M48.061 Labs: CREATININE(mg/dL) Nessa Dt/Tm Resulted Value Status 05/06/20 8:46A 05/06/20 2.0* FINAL POTASSIUM(mmol/L) Nessa Dt/Tm Resulted Value Status 05/06/20 8:46A 05/06/20 4.0 FINAL TSH(uIU/mL) Nessa Dt/Tm Resulted Value Status 05/06/20 8:46A 05/06/20 5.35* FINAL LDL (CALCULATED)(mg/dL) Nessa Dt/Tm Resulted Value Status 03/14/19 1:54P 03/14/19 FINAL Value: UNINTERPRETABLE RESULT LDL DIRECT(REFLEX)(mg/dL) Nessa Dt/Tm Resulted Value Status 03/14/19 1:54P 03/14/19 126 FINAL ALT(U/L) Nessa Dt/Tm Resulted Value Status 05/06/20 8:46A 05/06/20 27 FINAL Hemoglobin AIC Results: HEMOGLOBIN, A1C(%) Nessa Dt/Tm Resulted Value Status 01/23/20 11:11A 01/23/20 7.3* FINAL 11/07/19 3:04P 11/07/19 8.3* FINAL 08/09/19 11:02A 08/09/19 9.4* FINAL * Telephone Encounter - Manny Tamayo LPN - 08/26/2020 11:38 AM EST Message from Zannel: Refills have been requested for the following medications: traMADol HCl 50 MG Oral Tablet (ULTRAM) [Migue Whiteside, DO] clonazePAM 0.5 MG Oral Tablet (KlonoPIN) [Migue Whiteside, DO] Preferred pharmacy: [facility] [id number] documented in this encounter Plan of Treatment Upcoming Encounters Date Type Specialty Care Team Description 08/28/2020 Home Visit [facility] Vera Capellan RN [address] [place] [address] [phone] 09/03/2020 Pharmacy Pharmacy [facility] [place] [address] [place] [address] 09/05/2020 Home Visit [facility] Rema Real LSW [address] [place] [address] 09/09/2020 Telemedicine Nephrology Erik Lenz MD [address] [facility] [address] [phone] 09/30/2020 Office Visit Dermatology Apple Kaminski MD [address] [place] [address] [phone] 10/01/2020 Imaging Radiology 11/13/2020 Office Visit Family Medicine Migue Whiteside, DO [address] [place] [address] [phone] 01/08/2021 Office Visit Orthopedics Zack Teague, [address] [place] [address] [phone] 02/02/2021 Office Visit Cardiology Rey Woodall MD [address] [place] [address] [phone] 08/18/2021 Office Visit Pulmonary Celsa Tafoya CRNP [address] [place] [address] [phone] Health Maintenance Due Date Last Done Comments Zoster Vaccines (3 of 3) 01/02/2020 11/07/2019, 11/24 Pneumococcal Vaccine: 65+ Years (1 of 1 - PPSV23) 2020 08/22/2009, 06/15/2006 BREAST CANCER SCREENING DISCUSSION YEARLY AGES 40-75 07/10/2020 07/10/2019, 06/23/2018, 05/09/2015, Additional history exists DIABETES-HGBA1C EVERY 6 MONTHS 07/24/2020 01/23/2020, 11/07/2019, 08/09/2019, Additional history exists CKD GFR USE SMARTSET 57522 11/06/202005/06, 03/13/2020, 03/07/2020, Additional history exists DIABETES-FOOT EXAM 11/07/2020 11/07/2019, 0 01/01/2019, 12/29/2017, Additional history exists CKD PHOS USE SMARTSET 70571 12/23/2020 03/3 , 11/07/2019, 12/29/2017, Additional history exists DIABETES-URINE MICROALBUMIN EVERY 12 MONTHS 12/23/2020 12/24/2019, 11/30/2019, 05/24/2019, Additional history exists Yearly B-12 01/22/2021 01/23/2020, 02/24, 05/16/2018 DIABETES-EYE EXAM 04/07/2021 04/07/2020, , 02/24/2010 (Done elsewhere), Additional history exists CKD HGB USE SMARTSET 98688 05/06/202105/06, 03/13/2020, 11/30/2019, Additional history exists *DEPRESSION [...] Documents on File Type Date Recorded Patient Cryptologic Technician Technical Expl 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
--- OUTSIDE RECORDS SUMMARY | 2023-06-01 05:17 | External Medical Summary | Summary of Care ---
Author Name Unknown Organization [place] [address] Care Team Providers Care Vice President Integrated Name Role Phone Kevin Whiteside DO Primary Care Provider Reason for Visit * Reason Comments [facility]: Maintenance Encounter Details Date Type Department Care Team Description 07/30/2020 Home Visit [facility] [address] [facility] [place] [address] Vera Capellan, RN [address] [facility] [place] [address] [phone] Benign hypertensive heart and kidney disease with [...] as of this encounter (statuses as of 07/30/2020) Medications Medication Sig Dispensed Refills Start Date [...] TITRATION PLANIndications:Chron ic diastolic congestive heart failure ([facility]) If no improvement on day 3, contact [...] goal of 7.0%-8.0% ([facility]) TAKE ONE CAPSULE BY MOUTH THREE TIMES DAILY 270 Cap 0 05/20/2020 Active Additional Information Patient taking differently: 300 mg Oral TID, Taking 300mg in am and 600mg in pm, Reported on 07/17/2020 Blood Glucose Monitoring Suppl ([employer]TOUCH ULTRA 2) w/Device KIT Use to test BG values 1 Kit 0 05/20/2020 Active Glucose Blood (ONETOUCH ULTRA BLUE) STRP Check sugars 3-4 times daily, E11.9 400 Strip 3 05/22/2020 Active TRULICITY 1.5 MG/0.5ML SOPNIndications:DM type 2 nursing care encounter ([facility]),Uncontrolled type 2 diabetes mellitus with stage 3 chronic kidney disease, with long-term current use of insulin ([facility]) inject 1.5mg (one pen) under the skin once weekly 6 mL 1 05/27/2020 Active furosemide (LASIX) 40 MG TabletIndications:Chr onic diastolic congestive heart failure ([facility]) Take 2 Tabs by mouth daily. 180 [...] as of this encounter (statuses as of 07/30/2020) Active Problems Problem Noted Date Spinal stenosis [...] 10/14/2014 Overview: ICD-10 update of inactive term [place] filter in place 08/19/2014 History of pulmonary embolus (PE) 2013 Statin intolerance 07/16/2014 HTN, goal below 130/80 02/22/2014 Venous insufficiency 02/07/2013 ELISSA (obstructive sleep apnea) 09/16/2011 Overview: CPAP 11 cwp Mild, AHI 11.3 but with significant nocturnal hypoxemia Dicks Postsurgical hypothyroidism 06/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 documented as of this encounter (statuses as of 07/30/2020) Resolved Problems Problem Noted Date Resolved Date [...] as of this encounter (statuses as of 07/30/2020) Immunizations Name Administration Dates Next Due Pneumococcal [...] Sign Reading Time Taken Comments Blood Pressure 122/72 07/30/2020 2:54 PM EST Pulse 82 07/30/2020 2:54 PM EST Temperature 37 C (98.6 F) 07/30/2020 2:54 PM EST Respiratory Rate 18 07/30/2020 2:54 PM EST Oxygen Saturation 94% 07/30/2020 2:54 PM EST Inhaled Oxygen Concentration - - Weight - - Height - - Body Mass Index - - documented in this encounter Progress Notes * Vera Capellan RN - 07/30/2020 2:08 PM EST [facility] [employer] ROSA #3 Visit Date: 07/30/2020 Time: 2:29 PM Name: Stephanie Camp : 1955 Current Concerns: Patient seen for ROSA #[address] [facility] for UTI, atypical pneumonia, acute on chronic resp failure with hypoxia, ELSIE, hypokalemia, hypomagnesemia, dizziness. Dizziness felt to be secondary to infection, medication and hypotension. Also found out that she has lyme's disease Negative for Covid and Influenza Had back injection earlier this week. Reports pain is greatly improved since getting injection BSGs have been ranging high, had one reading up to 400, from steroids from injection Cks bsg TID - would be interested in getting freestyle or dexcom if insurance will cover - will reach out to [facility]. Doing injections now instead of pump On doxycycline still for Lymes - completed abx for UTI Restarted magnesium a few days States she doesn't have any concerns today. Physical Exam: BP 122/72 | Pulse 82 | Temp 37 C (98.6 F) | Resp 18 | LMP 03/11/2003 | SpO2 94% Pain 8 left knee Physical Exam Constitutional: Appearance: She is obese. [...] Does patient take medications as ordered: Yes Manages own meds Patient Well Being: PHQ2/9: @[id number]@ No change in living situation. Denies falls Denies issues with depression at this time. Advanced Care Planning: POLST. [...] pain relievers for pain Can also take Hydrocodone or flexeril prn back pain No NSAIDS Low na, ccd diet, 1.5L fluid restriction Ck bsgs and record tid Wear b/l le support hose-on day/off night Zaroxolyn prn for fluid overload-take only as advised\\ Finish abx as ordered Message to [facility] to see if eligible for freestyle or dexcom Home Interventions Provided: Home Intervention: Other; Evaluation Reinforced current Plan of Care, including self-management and medication regimen Patient's 'Red Flags': 1. Wt gain ofo 3 lbs in 24 hr or 5 lb in one wee 2. Increased sob 3. Increased edema Patient Needs to Remember: Call [facility] at with any new or [...] visits & schedule home visit with care engineering team supervisor(s)as indicated. Provider is in agreement with Plan of Care: Yes Scheduled to follow up with patient per ROSA schedule. Vera Capellan RN 07/30/2020 2:29 PM documented in this encounter Plan of Treatment Upcoming Encounters Date Type Specialty Care Team Description 08/06/2020 Office Visit Pharmacy [facility] [address] [place] [address] 08/07/2020 Home Visit Family Medicine Magaly Morales, [facility] [address] [place] [address] [phone] 08/08/2020 Home Visit [facility] Rema Real LSW [address] [place] [address] [phone] 08/25/2020 Office Visit Nephrology Erik Lenz MD [address] [place] [address] [phone] 08/28/2020 Home Visit [facility] Vera Capellan RN [address] [place] [address] [phone] 09/30/2020 Office Visit Dermatology Apple Kaminski MD [address] [place] [address] [phone] 10/01/2020 Imaging Radiology 11/13/2020 Office Visit Family Medicine Kevin Whiteside DO [address] [place] [address] [phone] 11/27/2020 Office Visit Pulmonary Celsa Tafoya CRNP [address] [place] [address] [phone] 01/08/2021 Office Visit Orthopedics Zack Teague DO [address] [place] [address] 02/02/2021 Office Visit Cardiology Rey Woodall MD [address] [place] [address] [phone] Health Maintenance Due Date Last Done Comments Zoster Vaccines (3 of 3) 01/02/2020 11/07/2019, 11/24 Pneumococcal Vaccine: 65+ Years (1 of 1 - PPSV23) 2020 08/22/2009, 06/15/2006 BREAST CANCER SCREENING DISCUSSION YEARLY AGES 40-75 07/10/2020 07/10/2019, 06/23/2018, 05/09/2015, Additional history exists DIABETES-HGBA1C EVERY 6 MONTHS 07/24/2020 01/23/2020, 11/07/2019, 08/09/2019, Additional history exists CKD GFR USE SMARTSET 54014 11/06/202005/06, 03/13/2020, 03/07/2020, Additional history exists DIABETES-FOOT EXAM 11/07/2020 11/07/2019, 0 01/01/2019, 12/29/2017, Additional history exists CKD PHOS USE SMARTSET 42411 12/23/2020 03/, 11/07/2019, 12/29/2017, Additional history exists DIABETES-URINE MICROALBUMIN EVERY 12 MONTHS 12/23/2020 12/24/2019, 11/30/2019, 05/24/2019, Additional history exists Yearly B-12 01/22/2021 01/23/2020, 02/24, 05/16/2018 DIABETES-EYE EXAM 04/07/2021 04/07/2020, , 02/24/2010 (Done elsewhere), Additional history exists CKD HGB USE SMARTSET 91288 05/06/202105/06, 03/13/2020, 11/30/2019, Additional history exists *DEPRESSION [...] Documents on File Type Date Recorded Patient Global Compensation Director Expl 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
--- OUTSIDE RECORDS SUMMARY | 2023-06-01 05:17 | External Medical Summary | Summary of Care ---
Author Name Unknown Organization [place] [address] Care Team Providers Care Marketing Community Liaison Name Role Phone Kevin Whiteside DO Primary Care Provider Reason for Visit * Reason Comments Follow Up started new machine Encounter Details Date Type Department Care Team Description 07/29/2020 Telemedicine Pulmonary Medicine, [facility] [address] [facility] [place] [address] Celsa Tafoya CRNP 132 [facility] [place] [address] ELISSA (obstructive sleep apnea)*; Chronic hypoxemic respiratory failure (HCC) Allergies Active [...] as of this encounter (statuses as of 07/29/2020) Medications Medication Sig Dispensed Refills Start Date [...] of 7.0%-8.0% ([facility]) TAKE ONE CAPSULE BY MOUTH THREE [...] type 2 nursing care encounter ([facility]),Uncontrolled type 2 diabetes mellitus with stage 3 chronic kidney disease, with long-term current use of insulin ([facility]) inject 1.5mg (one pen) under the [...] as of this encounter (statuses as of 07/29/2020) Active Problems Problem Noted Date Spinal stenosis [...] Overview: ICD-10 update of inactive term [place] filter in place 08/19/2014 History of pulmonary embolus (PE) 2013 Statin intolerance 07/16/2014 HTN, goal below 130/80 02/22/2014 Venous insufficiency 02/07/2013 ELISSA (obstructive sleep apnea) 09/16/2011 Overview: CPAP 11 cwp Mild, AHI 11.3 but with significant nocturnal hypoxemia Dicks Postsurgical hypothyroidism 06/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 documented as of this encounter (statuses as of 07/29/2020) Resolved Problems Problem Noted Date Resolved Date [...] as of this encounter (statuses as of 07/29/2020) Immunizations Name Administration Dates Next Due Pneumococcal [...] on file documented as of this encounter Patient Instructions * Patient Instructions* Celsa Tafoya CRNP - 07/29/2020 3:45 PM EST Continue use of CPAP to include all periods of sleep. Recommended total sleep time for adults is 7-9 hours. Reminder to clean CPAP supplies weekly and change supplies as needed. Work at making lifestyle changes, including dietary and exercise, as weight loss often results in improvement of sleep disordered breathing. Daily exercise has been shown to improve sleep quality. Avoid driving, operating heavy machinery or engaging in any activity that requires full alertness if feeling sleepy, drowsy or otherwise impaired. documented in this encounter Progress Notes * Celsa Tafoya CRNP - 07/29/2020 3:32 PM EST [facility] After connecting through [employer], patient was verified with two unique identifiers. Patient (or authorized legal underwriting sales representative) was then informed that this was a Telemedicine visit and that the exam was being conducted confidentially over secure lines. My office door was closed. No one else was in the room with me. Patient acknowledged consent and understanding of privacy and security of the Telemedicine visit and gave permission to have a telemedicine presenter/family member stay in the room in order to assist with the history and to conduct the exam if needed. I informed the patient thatI have reviewed their record in [employer] and presented the opportunity for them to ask any questions reg arding the visit today. The patient agreed to participate. History: ELISSA on CPAP with oxygen RLS (iron supplementation caused GI upset/constipation) Chronic respiratory failure - 08/2019 6 MWT RA - low 85% / 3 MWT 2 LPM - low 89% PMH includes CHF, obesity, pneumonia requiring extended ventilation and trach, CKD, DM,HTN, GERD,chronic back pain. Interim History: CPAP/oxygen used nightly. Tolerating replacement CPAP without issues. Notes ongoing benefit with PAP treatment. Was recently off CPAP x5 days while hospitalized. Compliance Data: Report date: 30 days, 07/28/20 % total days used: 80 % days used > 4 hours: 70 Average hours per day used: 5 hours 56 mins Large leak: 42 mins AHI: 0.2 Equipment: DME Provider: [facility] Oxygen Device/settin cmH20 with 2 LPM bled through Interface Type: nasal Humidifier: yes Cleaning: yes [place] Sleepiness Scale (Pt Reported) Sitting and reading (Pt Reported): Slight chance of dozing (Value: 1) Watching TV (Pt Reported): Slight chance of dozing (Value: 1) Sitting inactive in a public place, such as a theater or meeting (Pt Reported): No chance of dozing(Value: 0) As a passenger in a car for an hour without a break (Pt Reported): No chance of dozing (Value: 0) Lying down to rest in the afternoon when circumstances permit (Pt Reported): Moderate chance of dozing (Value: 2) Sitting and talking to someone (Pt Reported): Slight chance of dozing (Value: 1) Sitting quietly after lunch without alcohol (Pt Reported): No chance of dozing (Value: 0) In a car, while stopped for a few minutes in traffic (Pt Reported): No chance of dozing (Value: 0) Score: 5 Survey Source: Clinic Completion Date: 11/28/2019 12:20:33 PM Functional Outcomes of Sleep Questionnaire (Pt Reported) Do you have difficulty concentrating because you are sleepy or tired? (Pt Reported): Yes, a little (Value: 3) Do you have difficulty remembering things because you are sleepy or tired? (Pt Reported): No (Value: 4) Do you have difficulty operating a motor vehicle for short distances (less than 100 miles) because you become sleepy? (Pt Reported): No (Value: 4) Do you have difficulty operating a motor vehicle for long distances (more than 100 miles) because you become sleepy? (Pt Reported): No (Value: 4) Do you have difficulty visiting family or friends in their home because you become sleepy or tired?(Pt Reported): No (Value: 4) Has your relationship with family, friends, or work colleagues been affected because you are sleepyor tired? (Pt Reported): No (Value: 4) Do you have difficulty watching a movie or video because you become sleepy or tired? (Pt Reported):Yes, a little (Value: 3) Do you have difficulty being as active as you want to be in the evening because you are tired or sleepy? (Pt Reported): Yes, a little (Value: 3) Do you have difficulty being as active as you want to be in the morning because you are tired or sleepy? (Pt Reported): Yes, a little (Value: 3) Has your mood been affected because you are sleepy or tired? (Pt Reported): No (Value: 4) Score: 36 Survey Source: Clinic Completion Date: 11/28/2019 12:22:32 PM ROS: Constitutional: no fatigue, night sweats, or unexplained weight loss ENT: no am headaches, dry mouth or sinus congestion Cardiovascular: no chest pain, palpitations, or lower extremity edema Pulmonary: no shortness of breath, cough or wheezing Gastro: no abdominal pain, aerophagia or nocturnal gastric reflux Reviewed changes in PMH, PSH or family history in the interim of care. Recently diagnosed with L[place] Dx and UTI resulting in hospitalization. Problem List: Patient Active Problem List Diagnosis Code Dyslipidemia E78.5 ELLIE (generalized anxiety disorder) F41.1 Postsurgical hypothyroidism E89.0 ELISSA (obstructive sleep apnea) G47.33 Venous insufficiency I87.2 HTN, goal below 130/80 I10 History of pulmonary embolus (PE) Z86.711 Statin intolerance Z78.[address] Z95.828 Type 2 diabetes mellitus with hemoglobin A1c goal of 7.0%-8.0% ([facility]) E11.9 Fibromyalgia M79.7 Abnormality of gait R26.9 Restless legs syndrome G25.81 Gastroesophageal reflux disease with esophagitis K21.00 Morbid obesity with BMI of 50.0-59.9, adult ([facility]) E66.01, Z68.43 Controlled substance agreement signed Z79.899 Chronic diastolic congestive heart failure ([facility]) I50.32 Mild episode of recurrent major depressive disorder ([facility]) F33.0 Lumbar radiculopathy M54.16 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, NYHA class 1 and CKD stage 3 ([facility]) I13.0, I50.30, N18.30 Chronic respiratory failure with hypoxia ([facility]) J96.11 Hyperparathyroidism, secondary renal ([facility]) N25.81 Vasculitis ([facility]) I77.6 Primary osteoarthritis of left knee M17.12 Spinal stenosis of lumbar region without neurogenic claudication M48.061 Current Medications: Outpatient Medications Marked as Taking for the 07/29/20 encounter (Telemedicine) with TATIANA Knapp Medication Sig Doxycycline Hyclate 100 MG Oral Capsule Take 100 mg by mouth 2 times a day. First-Mouthwash BLM Mouth/Throat Suspension Swish and spit 30 mL 4 times a day. Magnesium Oxide 400 (241.3 Mg) MG Oral Tablet Take 400 mg by mouth daily. Vitamin D 25 MCG (1000 UT) Oral Tablet Take 1 Tab by mouth daily. Cyclobenzaprine HCl 10 MG Oral Tablet (FLEXERIL) TAKE ONE TABLET BY MOUTH AT BEDTIME NEEDED FOR SPASM clonazePAM 0.5 MG Oral Tablet (KlonoPIN) TAKE ONE TABLET BY MOUTH TWICE DAILY buPROPion HCl ER (XL) 150 MG Oral Tablet Extended Release 24 Hour (Wellbutrin XL) Take 1 Tab bymouth daily. NovoLOG FlexPen 100 UNIT/ML Subcutaneous Solution Pen-injector (insulin aspart) Inject up to 30units with meals plus sliding scale as directed by diabetes clinic traMADol HCl 50 MG Oral Tablet (ULTRAM) Take 1 Tab by mouth every 8 hours as needed for Pain, Severe. BD Pen Needle Short U/F 31G X 8 MM (Insulin Pen Needle) Use 5 times daily with insulin Tresiba FlexTouch 100 UNIT/ML Subcutaneous Solution Pen-injector (Insulin Degludec) Inject 50 Units under the skin daily. clobetasol propionate (TEMOVATE) 0.05 % cream Apply to rash on the hands and dorsal feet twice daily x 1 week, then as needed for flares. colchicine 0.6 MG Tablet Take 1/2 tab daily furosemide (LASIX) 40 MG Tablet Take 2 Tabs by mouth daily. (Patient taking differently: Take 40 mg by mouth 2 times a day.) TRULICITY 1.5 MG/0.5ML SOPN inject 1.5mg (one pen) under the skin once weekly Glucose Blood (ONETOUCH ULTRA BLUE) STRP Check sugars 3-4 times daily, E11.9 Blood Glucose Monitoring Suppl (ONETOUCH ULTRA 2) w/Device KIT Use to test BG values gabapentin (NEURONTIN) 300 MG Capsule TAKE ONE CAPSULE BY MOUTH THREE TIMES DAILY (Patient taking differently: Take 300 mg by mouth 3 times a day. Taking 300mg in am and 600mg in pm) zoster vac recomb adjuvanted (SHINGRIX) 50 MCG/0.5ML [...] contact heart failure managing provider. DULoxetine (CYMBALTA) 30 MG CPEP Take 1 Cap by mouth daily. Take along with the 60mg dose for totally of 90mg daily. Do not cut, crush or chew DULoxetine (CYMBALTA) 60 MG CPEP Take 1 Cap by mouth daily. Along with 30 mg capsule to total 90 mg daily. metoprolol tartrate (LOPRESSOR) 25 MG Tablet Take 0.5 Tabs by mouth 2 times a day. rOPINIRole (REQUIP) 2 MG Tablet Take 1 Tab by mouth at bedtime. levothyroxine (LEVOXYL) 25 MCG Tablet TAKE ONE TABLET BY MOUTH IN THE MORNING AT LEAST 30 MINUTES PRIOR TO BREAKFAST OR OTHER MEDS metolazone (ZAROXOLYN) 2.5 MG Tablet Take as directed by physician potassium chloride ER 10 MEQ TBCR Take one 3 days per week ACCU-CHEK SOFTCLIX LANCETS MISC Test blood sugar three or four times daily as directed levothyroxine (LEVOXYL) 200 MCG Tablet TAKE ONE TABLET BY MOUTH EVERY DAY AT LEAST 30 MINUTES BEFORE BREAKFAST OR OTHER MEDS Nortriptyline HCl (PAMELOR) 50 MG Capsule Take 1 Cap by mouth at bedtime. omeprazole (PRILOSEC) 20 MG CPDR Take 1 [...] times a day as needed for Constipation. LMP 03/11/2003 Constitutional: Alert, oriented and in no acute distress Skin: No abnormal mask markings on face Chest: Normal respiratory effort at rest Neuro: Fluent speech, follows commands without issue Psych: Appropriate mood and affect. Assessment & Plan: ELISSA (obstructive sleep apnea) (Primary) - DURABLE MEDICAL EQUIPMENT Chronic hypoxemic respiratory failure (HCC) Continue oxygen at 2 LPM during hours of sleep and during the day if sats drop <90%. She previously declined treatment or work up for small airways disease/bronchiectasis. Consider watching CT for further reticular changes and possible ILD. Patient Instructions Continue use of CPAP to include all periods of sleep. Recommended total sleep time for adults is 7-9 hours. Reminder to clean CPAP supplies weekly and change supplies as needed. Work at making lifestyle changes, including dietary and exercise, as weight loss often results in improvement of sleep disordered breathing. Daily exercise has been shown to improve sleep quality. Avoid driving, operating heavy machinery or engaging in any activity that requires full alertness if feeling sleepy, drowsy or otherwise impaired. A total of 21 minutes were spent on this visit with 18 minutes spent with the patient on televideo and 3 minutes spent documenting and coordinating follow-up care. I have advised the patient to contact our office with any new or worsening symptoms. Return in about 1 year (around 07/29/2021) for elissa. TATIANA Figueredo MS Pulmonary & Sleep Medicine [facility] documented in this encounter Nursing Notes * Evelyne Vee LPN - 07/29/2020 10:19 AM EST Chief Complaint Patient presents with Follow Up started new Patient started on a new machine DME: [employer] SLEEPINESS SCALE: How likely are you to doze off or fall asleep in the following situations, in contrast to feeling just tired?. This refers to your usual way of life in recent times. Even if you have not done some ofthese things recently, try to work out how they would have affected you. Using the following scale,walker river the most appropriate number in the chart for each situation. 0 = would never doze 1 = slight chance of dozing 2 = moderate chance of dozing 3 = high chance of dozing Sitting and reading - 0 Watching TV - 1 Sitting, inactive in a public place - 0 As a passenger in a car for an hour without a break - 0 Lying down to rest in the afternoon when circumstance permit - 3 Sitting and talking to someone - 0 Sitting quietly after a lunch without alcohol - 0 In a car, while stopped for a few minutes in the traffic - 0 Total - 01/17 Felipe KING. Sleep. 1990;[id number]. documented in this encounter Plan of Treatment Upcoming Encounters Date Type Specialty Care Team Description 07/30/2020 Home Visit [facility] Vera Capellan, RN [address] [place] [address] [phone] 08/06/2020 Office Visit Pharmacy Danuta [facility]az [facility] [place] [address] [place] [address] 08/07/2020 Home Visit Family Medicine Magaly Morales, Community Health Salesperson [employer] [address] [place] [address] [phone] 08/08/2020 Home Visit [facility] Rema Real LSW [address] [place] [address] [phone] 08/25/2020 Office Visit Nephrology Erik [place] MD [address] [place] [address] [phone] 08/28/2020 Home Visit [facility] Vera Capellan RN [address] [place] [address] [phone] 09/30/2020 Office Visit Dermatology Apple Kaminski MD [address] [place] [address] [phone] 10/01/2020 Imaging Radiology 11/13/2020 Office Visit Family Medicine Kevin Whiteside, [address] [place] [address] [phone] 11/27/2020 Office Visit Pulmonary Celsa Tafoya CRNP [address] [place] [address] [phone] 01/08/2021 Office Visit Orthopedics Zack Teague DO [address] [place] [address] [phone] 02/02/2021 Office Visit Cardiology Rey Woodall MD [address] [place] [address] [phone] Health Maintenance Due Date Last Done Comments Zoster Vaccines (3 of 3) 01/02/2020 11/07/2019, 11/24 Pneumococcal Vaccine: 65+ Years (1 of 1 - PPSV23) 2020 08/22/2009, 06/15/2006 BREAST CANCER SCREENING DISCUSSION YEARLY AGES 40-75 07/10/2020 07/10/2019, 06/23/2018, 05/09/2015, Additional history exists DIABETES-HGBA1C EVERY 6 MONTHS 07/24/2020 01/23/2020, 11/07/2019, 08/09/2019, Additional history exists CKD GFR USE SMARTSET 40434 11/06/202005/06, 03/13/2020, 03/07/2020, Additional history exists DIABETES-FOOT EXAM 11/07/2020 11/07/2019, 0 01/01/2019, 12/29/2017, Additional history exists CKD PHOS USE SMARTSET 78980 12/23/2020 03/, 11/07/2019, 12/29/2017, Additional history exists DIABETES-URINE MICROALBUMIN EVERY 12 MONTHS 12/23/2020 12/24/2019, 11/30/2019, 05/24/2019, Additional history exists Yearly B-12 01/22/2021 01/23/2020, 02/24, 05/16/2018 DIABETES-EYE EXAM 04/07/2021 04/07/2020, , 02/24/2010 (Done elsewhere), Additional history exists CKD HGB USE SMARTSET 15689 05/06/202105/06, 03/13/2020, 11/30/2019, Additional history exists *DEPRESSION [...] of this encounter Visit Diagnoses Diagnosis ELISSA (obstructive sleep apnea)- Primary Obstructive sleep apnea (adult) (pediatric) Chronic hypoxemic respiratory failure (HCC) Chronic respiratory failure documented in this encounter Advance Directives Documents on File Type Date Recorded 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
--- OUTSIDE RECORDS SUMMARY | 2023-06-01 05:17 | External Medical Summary | Summary of Care ---
Author Name Unknown Organization [place] [address] Care Team Providers Care Senior Clinical Research Associate Name Role Phone Kevin Whiteside DO Primary Care Provider Reason for Visit * Reason Onset Date Comments Appointment 07/31/2020 sleep ret Encounter Details Date Type Department Care Team Description 07/31/2020 Telephone [facility] [address] Celsa Tafoya CRNP [address] [facility] [place] [id number] Appointment (sleep ret) Allergies Active Allergy Reactions Severity Noted Date Comments Codeine 07/08/2014 hallucination Pollen 05/18/2019 Heparin 09/04/2009 Heparin Induced Thrombocytopenia Hydrocodone Neuro complications (Please comment) 07/28/2020 Empagliflozin Other (Please comment) Medium 05/17/2018 3 yeast infections in 6 weeks after starting Morphine And Related 09/16/1997 Hallucinations Tetanus Toxoid Other (Please comment) 06/15/2011 Passed out documented as of this encounter (statuses as of 07/31/2020) Medications Medication Sig Dispensed Refills Start Date [...] goal of 7.0%-8.0% ([facility]) TAKE ONE CAPSULE BY MOUTH THREE TIMES DAILY 270 Cap 0 05/20/2020 Active Additional Information Patient taking differently: 300 mg Oral TID, Taking 300mg in am and 600mg in pm, Reported on 07/17/2020 Blood Glucose Monitoring Suppl (iLumi SolutionsTOUCH ULTRA 2) w/Device KIT Use to [...] as of this encounter (statuses as of 07/31/2020) Active Problems Problem Noted Date Spinal stenosis [...] as of this encounter (statuses as of 07/31/2020) Resolved Problems Problem Noted Date Resolved Date [...] as of this encounter (statuses as of 07/31/2020) Immunizations Name Administration Dates Next Due Pneumococcal [...] Miscellaneous Notes * Telephone Encounter - Rema Barroso OSA - 07/31/2020 7:43 AM EST Elissa 1 year as televideo, cancel november appointment (Michelet) documented in this encounter Plan of Treatment Upcoming Encounters Date Type Specialty Care Team Description 08/06/2020 Office Visit Pharmacy [facility] [place] [address] [place] [address] 08/07/2020 Home Visit Family Medicine Magaly Morales, Community Health Salesperson [employer] [address] [place] [address] [phone] 08/08/2020 Home Visit [facility] Rema Real LSW [address] [place] [address] [phone] 08/25/2020 Office Visit Nephrology Erik [place] MD [address] [place] [address] [phone] 08/28/2020 Home Visit [facility] Vera Capellan RN [address] [place] [address] [phone] 09/30/2020 Office Visit Dermatology Apple Kaminski MD [address] [place] [address] [phone] 10/01/2020 Imaging Radiology 11/13/2020 Office Visit Family Medicine Kevin Whiteside, [address] [place] [address] [phone] 11/27/2020 Office Visit Pulmonary Celsa Tafoya CRNP [address] [place] [address] [phone] 01/08/2021 Office Visit Orthopedics Zack Teague, [address] [place] [address] [phone] 02/02/2021 Office Visit Cardiology Rey Woodall MD [address] [place] [address] [phone] Health Maintenance Due Date Last Done Comments Zoster Vaccines (3 of 3) 01/02/2020 11/07/2019, 11/24 Pneumococcal Vaccine: 65+ Years (1 of 1 - PPSV23) 2020 08/22/2009, 06/15/2006 BREAST CANCER SCREENING DISCUSSION YEARLY AGES 40-75 07/10/2020 07/10/2019, 06/23/2018, 05/09/2015, Additional history exists DIABETES-HGBA1C EVERY 6 MONTHS 07/24/2020 01/23/2020, 11/07/2019, 08/09/2019, Additional history exists CKD GFR USE SMARTSET 43459 11/06/202005/06, 03/13/2020, 03/07/2020, Additional history exists DIABETES-FOOT EXAM 11/07/2020 11/07/2019, 0 01/01/2019, 12/29/2017, Additional history exists CKD PHOS USE SMARTSET 54539 12/23/2020 03/, 11/07/2019, 12/29/2017, Additional history exists DIABETES-URINE MICROALBUMIN EVERY 12 MONTHS 12/23/2020 12/24/2019, 11/30/2019, 05/24/2019, Additional history exists Yearly B-12 01/22/2021 01/23/2020, 02/24, 05/16/2018 DIABETES-EYE EXAM 04/07/2021 04/07/2020, , 02/24/2010 (Done elsewhere), Additional history exists CKD HGB USE SMARTSET 27844 05/06/202105/06, 03/13/2020, 11/30/2019, Additional history exists *DEPRESSION [...] Documents on File Type Date Recorded Patient 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
--- OUTSIDE RECORDS SUMMARY | 2023-06-01 05:17 | External Medical Summary | Summary of Care ---
Author Name Unknown Organization [place] [address] Care Team Providers Care Bottom Worker Name Role Phone Kevin Whiteside DO Primary Care Provider Reason for Visit * Reason Onset Date Comments Appointment 07/31/2020 sleep ret Encounter Details Date Type Department Care Team Description 07/31/2020 Telephone Pulmonary Medicine, [facility] [address] Celsa Tafoya CRNP 132 [facility] [place] [id number] Appointment (sleep ret) Allergies Active Allergy Reactions Severity Noted Date Comments Codeine 07/08/2014 hallucination Pollen 05/18/2019 Heparin 09/04/2009 Heparin Induced Thrombocytopenia Hydrocodone Neuro complications (Please comment) 07/28/2020 Empagliflozin Other (Please comment) Medium 05/17/2018 3 yeast infections in 6 weeks after starting Morphine And Related 09/16/1997 Hallucinations Tetanus Toxoid Other (Please comment) 06/15/2011 Passed out documented as of this encounter (statuses as of 08/14/2020) Medications Medication Sig Dispensed Refills Start Date [...] goal of 7.0%-8.0% ([facility]) TAKE ONE CAPSULE BY MOUTH THREE TIMES DAILY 270 Cap 0 05/20/2020 Active Additional Information Patient taking differently: 300 mg Oral TID, Taking 300mg in am and 600mg in pm, Reported on 07/17/2020 Blood Glucose Monitoring Suppl (Durata TherapeuticsTOUCH ULTRA 2) w/Device KIT Use to [...] as of this encounter (statuses as of 08/14/2020) Active Problems Problem Noted Date Spinal stenosis [...] 10/14/2014 Overview: ICD-10 update of inactive term [place] filter in place 08/19/2014 History of pulmonary embolus (PE) 2013 Statin intolerance 07/16/2014 HTN, goal below 130/80 02/22/2014 Venous insufficiency 02/07/2013 ELISSA (obstructive sleep apnea) 09/16/2011 Overview: CPAP 11 cwp Mild, AHI 11.3 but with significant nocturnal hypoxemia Dicks Postsurgical hypothyroidism 06/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 documented as of this encounter (statuses as of 08/14/2020) Resolved Problems Problem Noted Date Resolved Date [...] as of this encounter (statuses as of 08/14/2020) Immunizations Name Administration Dates Next Due Pneumococcal [...] Miscellaneous Notes * Telephone Encounter - Telma Lo OSA - 08/14/2020 7:30 PM EST Patient is scheduled for 07/2021 * Telephone Encounter - Xavier Peterson OSA - 08/01/2020 10:54 AM EST LMOM * Telephone Encounter - Rema Barroso OSA - 07/31/2020 7:43 AM EST Elissa 1 year as televideo, cancel november appointment (Michelet) documented in this encounter Plan of Treatment Upcoming Encounters Date Type Specialty Care Team Description 08/25/2020 Office Visit Nephrology Erik Lenz MD 200 [facility] [place] [facility] [place] [address] [phone] 08/28/2020 Home Visit [facility] Vera Capellan RN [address] [place] [address] [phone] 09/03/2020 Pharmacy [facility] [address] [place] [address] 09/05/2020 Home Visit [facility] Rema Real LSW [address] [place] [address] [phone] 09/30/2020 Office Visit Dermatology Apple Kaminski MD 200 [facility] [place] [address] [phone] 10/01/2020 Imaging Radiology 11/13/2020 Office Visit Family Medicine Kevin Whiteside, [address] [place] [address] [phone] 01/08/2021 Office Visit Orthopedics Zack Teague, DO [address] [place] [address] [phone] 02/02/2021 Office Visit Cardiology Rey Woodall MD [address] [place] [address] [phone] 08/18/2021 Office Visit Pulmonary Celsa Tafoya CRNP [address] [place] [address] [phone] Health Maintenance Due Date Last Done Comments Zoster Vaccines (3 of 3) 01/02/2020 11/07/2019, 11/24 Pneumococcal Vaccine: 65+ Years (1 of 1 - PPSV23) 2020 08/22/2009, 06/15/2006 BREAST CANCER SCREENING DISCUSSION YEARLY AGES 40-75 07/10/2020 07/10/2019, 06/23/2018, 05/09/2015, Additional history exists DIABETES-HGBA1C EVERY 6 MONTHS 07/24/2020 01/23/2020, 11/07/2019, 08/09/2019, Additional history exists CKD GFR USE SMARTSET 28015 11/06/202005/06, 03/13/2020, 03/07/2020, Additional history exists DIABETES-FOOT EXAM 11/07/2020 11/07/2019, 0 01/01/2019, 12/29/2017, Additional history exists CKD PHOS USE SMARTSET 03005 12/23/202011/26, 11/07/2019, 12/29/2017, Additional history exists DIABETES-URINE MICROALBUMIN EVERY 12 MONTHS 12/23/2020 12/24/2019, 11/30/2019, 05/24/2019, Additional history exists Yearly B-12 01/22/2021 01/23/2020, 02/24, 05/16/2018 DIABETES-EYE EXAM 04/07/2021 04/07/2020, , 02/24/2010 (Done elsewhere), Additional history exists CKD HGB USE SMARTSET 40845 05/06/202105/06, 03/13/2020, 11/30/2019, Additional history exists *DEPRESSION [...] Documents on File Type Date Recorded Patient Adjunct Instructor In Economics Expl 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
--- OUTSIDE RECORDS SUMMARY | 2023-06-01 05:17 | External Medical Summary | Summary of Care ---
Author Name Unknown Organization [place] [address] Care Team Providers Care Bulk Sealer Operator Name Role Phone Kevin Whiteside DO Primary Care Provider Reason for Visit * Reason Comments Follow Up started new machine Encounter Details Date Type Department Care Team Description 07/29/2020 Telemedicine Pulmonary Medicine, [facility] 132 [facility] [place] [address] Celsa Tafoya CRNP 132 [facility] [place] [address] ELISSA (obstructive [...] 10/14/2014 Overview: ICD-10 update of inactive term [place] filter in place 08/19/2014 History of pulmonary [...] Tafoya CRNP - 07/29/2020 3:32 PM EST [facility] After connecting through [email or web address], patient was verified with two unique identifiers. Patient (or authorized legal account executive sales representative) was then informed that this [...] patient thatI have reviewed their record in Mobile Authentication and presented the opportunity for them to [...] Interface Type: nasal Humidifier: yes Cleaning: yes [place] Sleepiness Scale (Pt Reported) Sitting and reading [...] of 7.0%-8.0% ([facility]) E11.9 Fibromyalgia M79.7 Abnormality of gait R26.9 Restless legs syndrome G25.81 Gastroesophageal reflux disease with esophagitis K21.00 Morbid obesity with BMI of 50.0-59.9, adult ([facility]) E66.01, Z68.43 Controlled substance agreement signed Z79.899 Chronic diastolic congestive heart failure ([facility]) I50.32 Mild episode of recurrent major depressive disorder ([facility]) F33.0 Lumbar radiculopathy M54.16 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, NYHA class 1 and CKD stage 3 ([facility]) I13.0, I50.30, N18.30 Chronic respiratory failure with hypoxia ([facility]) J96.11 Hyperparathyroidism, secondary renal ([facility]) N25.81 Vasculitis ([facility]) I77.6 Primary osteoarthritis of left knee [...] TATIANA Figueredo MS Pulmonary & Sleep Medicine [facility] documented in this encounter Nursing Notes * Evelyne Vee LPN - 07/29/2020 10:19 AM EST Chief Complaint Patient presents with Follow Up started new Patient started on a new machine DME: DIRECTOR OF ONLINE EDUCATION EPWORTH SLEEPINESS SCALE: How likely are you to doze off or fall asleep in the following situations, in contrast to feeling just tired?. This refers to your usual way of life in recent times. Even if you have not done some ofthese things recently, try to work out how they would have affected you. Using the following scale,siletz tribe the most appropriate number in the chart [...] 0 Total - 01/17 Felipe KING. Sleep. 1990;[id number]. documented in this encounter Plan of Treatment Upcoming Encounters Date Type Specialty Care Team Description 07/30/2020 Home Visit [facility] Vera Capellan, RN [address] [place] [address] [phone] 08/06/2020 Office Visit Pharmacy Danuta Ordaz [facility] [place] [address] [place] [address] 08/07/2020 Home Visit Family Medicine Magaly Morales, Community Health Research Attorney [address] [place] [address] [phone] 08/08/2020 Home Visit [facility] Rema Real LSW [address] [place] [address] [phone] 08/25/2020 Office Visit Nephrology Erik Lenz MD [address] [place] [address] [phone] 08/28/2020 Home Visit [facility] Vera Capellan RN [address] [place] [address] [phone] 09/30/2020 Office Visit Dermatology Apple Kaminski MD [address] [place] [address] [phone] 10/01/2020 Imaging Radiology 11/13/2020 Office Visit Family Medicine Kevin Whiteside, [address] [place] [address] [phone] 11/27/2020 Office Visit Pulmonary Celsa Tafoya CRNP [address] [place] [address] [phone] 01/08/2021 Office Visit Orthopedics Zack Teague DO [address] [place] [address] [phone] 02/02/2021 Office Visit Cardiology Rey Woodall MD [address] [place] [address] [phone] Health Maintenance Due Date Last Done Comments Zoster Vaccines (3 of 3) 01/02/2020 11/07/2019, 11/24 Pneumococcal Vaccine: 65+ Years (1 of 1 - PPSV23) 2020 08/22/2009, 06/15/2006 BREAST CANCER SCREENING DISCUSSION YEARLY AGES 40-75 07/10/2020 07/10/2019, 06/23/2018, 05/09/2015, Additional history exists DIABETES-HGBA1C EVERY 6 MONTHS 07/24/2020 01/23/2020, 11/07/2019, 08/09/2019, Additional history exists CKD GFR USE SMARTSET 65440 11/06/202005/06, 03/13/2020, 03/07/2020, Additional history exists DIABETES-FOOT EXAM 11/07/2020 11/07/2019, 0 01/01/2019, 12/29/2017, Additional history exists CKD PHOS USE SMARTSET 29728 12/23/2020 03/, 11/07/2019, 12/29/2017, Additional history exists DIABETES-URINE MICROALBUMIN EVERY 12 MONTHS 12/23/2020 12/24/2019, 11/30/2019, 05/24/2019, Additional history exists Yearly B-12 01/22/2021 01/23/2020, 02/24, 05/16/2018 DIABETES-EYE EXAM 04/07/2021 04/07/2020, , 02/24/2010 (Done elsewhere), Additional history exists CKD HGB USE SMARTSET 09773 05/06/202105/06, 03/13/2020, 11/30/2019, Additional history exists *DEPRESSION [...] on File Type Date Recorded Patient Bank Analyst Expl 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
--- OUTSIDE RECORDS SUMMARY | 2023-06-01 05:17 | External Medical Summary | Summary of Care ---
Author Name Unknown Organization [place] [address] Care Team Providers Care Hip Hop Performers Name Role Phone Kevin Whiteside DO Primary Care Provider Reason for Visit * Reason Comments [facility]: Maintenance Encounter Details Date Type Department Care Team Description 08/08/2020 [facility] Visit [facility], [facility] [place] [address] Rema Real, [facility] [address] [facility] [place] [address] [phone] Allergies Active Allergy Reactions Severity Noted Date Comments Codeine 07/08/2014 hallucination Pollen 05/18/2019 Heparin 09/04/2009 Heparin Induced Thrombocytopenia Hydrocodone Neuro complications (Please comment) 07/28/2020 Empagliflozin Other (Please comment) Medium 05/17/2018 3 yeast infections in 6 weeks after starting Morphine And Related 09/16/1997 Hallucinations Tetanus Toxoid Other (Please comment) 06/15/2011 Passed out documented as of this encounter (statuses as of 08/08/2020) Medications Medication Sig Dispensed Refills Start Date [...] Reported on 07/17/2020 Blood Glucose Monitoring Suppl (SpontactsUCH ULTRA 2) w/Device KIT Use to test [...] as of this encounter (statuses as of 08/08/2020) Active Problems Problem Noted Date Spinal stenosis [...] 10/14/2014 Overview: ICD-10 update of inactive term [place] filter in place 08/19/2014 History of pulmonary embolus (PE) 2013 Statin intolerance 07/16/2014 HTN, goal below 130/80 02/22/2014 Venous insufficiency 02/07/2013 ELISSA (obstructive sleep apnea) 09/16/2011 Overview: CPAP 11 cwp Mild, AHI 11.3 but with significant nocturnal hypoxemia Dicks Postsurgical hypothyroidism 06/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 documented as of this encounter (statuses as of 08/08/2020) Resolved Problems Problem Noted Date Resolved Date [...] as of this encounter (statuses as of 08/08/2020) Immunizations Name Administration Dates Next Due Pneumococcal [...] Progress Notes * Rema Real LSW - 08/08/2020 4:40 PM EST STEFANY met with Stephanie for follow up and supportive visit. Stephanie provided health update. She reported some slight improvement in mood r/t increase in Wellbutrin. She shared feelings r/t not being able to see family for Thanksgiving and missing family. She [facility] She made alternate plans for Thanksgiving planning to get together with friend. Stephanie has taken intiative to do some painting, crafts and do adult coloring books. She does walkdaily. STEFANY provided positive reinforcement and also made some suggestions regarding ways to maintainhealth and mental health during the pandemic and over the Holidays. STEFANY encouraged Stephanie to call [facility] for health changes or call crisis should she need mental health support. STEFANY ill schedule follow up in one month. documented in this encounter Plan of Treatment Upcoming Encounters Date Type Specialty Care Team Description 08/11/2020 Merchandise Clerk [facility] Rema Real LSW [address] [place] [address] [phone] 08/25/2020 Office Visit Nephrology Erik [place] MD [address] [facility] [address] [phone] 08/28/2020 Home Visit [facility] Vera Capellan RN [address] [place] [address] [phone] 09/03/2020 Pharmacy [facility] [place] [address] [place] [address] 09/30/2020 Office Visit Dermatology Apple Kaminski MD [address] [place] [address] [phone] 10/01/2020 Imaging Radiology 11/13/2020 Office Visit Family Medicine Kevin Whiteside DO [address] [place] [address] [phone] 11/27/2020 Office Visit Pulmonary Celsa Tafoya CRNP [address] [place] [address] [phone] 01/08/2021 Office Visit Orthopedics Zack Teague DO [address] [place] [address] [phone] 02/02/2021 Office Visit Cardiology Rey Woodall MD [address] [place] [address] [phone] Health Maintenance Due Date Last Done Comments Zoster Vaccines (3 of 3) 01/02/2020 11/07/2019, 11/24 Pneumococcal Vaccine: 65+ Years (1 of 1 - PPSV23) 2020 08/22/2009, 06/15/2006 BREAST CANCER SCREENING DISCUSSION YEARLY AGES 40-75 07/10/2020 07/10/2019, 06/23/2018, 05/09/2015, Additional history exists DIABETES-HGBA1C EVERY 6 MONTHS 07/24/2020 01/23/2020, 11/07/2019, 08/09/2019, Additional history exists CKD GFR USE SMARTSET 90717 11/06/202005/06, 03/13/2020, 03/07/2020, Additional history exists DIABETES-FOOT EXAM 11/07/2020 11/07/2019, 0 01/01/2019, 12/29/2017, Additional history exists CKD PHOS USE SMARTSET 03064 12/23/202011/26, 11/07/2019, 12/29/2017, Additional history exists DIABETES-URINE MICROALBUMIN EVERY 12 MONTHS 12/23/2020 12/24/2019, 11/30/2019, 05/24/2019, Additional history exists Yearly B-12 01/22/2021 01/23/2020, 02/24, 05/16/2018 DIABETES-EYE EXAM 04/07/2021 04/07/2020, , 02/24/2010 (Done elsewhere), Additional history exists CKD HGB USE SMARTSET 16675 05/06/202105/06, 03/13/2020, 11/30/2019, Additional history exists *DEPRESSION [...] on File Type Date Recorded Patient Metal Finish Inspector Expl 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
--- OUTSIDE RECORDS SUMMARY | 2023-06-01 05:18 | External Medical Summary | Summary of Care ---
Author Name Unknown Organization [facility] [place] [address] Care Team Providers Care Theater Technician Name Role Phone Kevin Whitesidemelinda Primary Care Provider Reason for Visit * Reason Onset Date Comments [facility]: Maintenance 07/19/2020 Encounter Details Date Type Department Care Team Description 07/19/2020 Scheduled Telephone [facility], [facility] 132 [facility] [place] [address] [facility], Nurse [facility] [address] [facility] [place] [address] [phone] Allergies Active Allergy Reactions Severity Noted Date Comments Codeine 07/08/2014 hallucination Pollen 05/18/2019 Heparin 09/04/2009 Heparin Induced Thrombocytopenia Empagliflozin Other (Please comment) Medium 05/17/2018 3 yeast infections in 6 weeks after starting Morphine And Related 09/16/1997 Hallucinations Tetanus Toxoid Other (Please comment) 06/15/2011 Passed out documented as of this encounter (statuses as of 07/19/2020) Medications Medication Sig Dispensed Refills Start Date End Date Status docusate sodium (STOOL SOFTENER) 100 MG Capsule Take 100 mg by mouth 2 times a day as needed for Constipation. 0 Active cyclobenzaprine (FLEXERIL) 10 MG Tablet TAKE ONE TABLET BY MOUTH AT BEDTIME NEEDED FOR MUSCLE SPASM 90 Tab 2 08/01/2018 Active ONETOUCH DELICA LANCETS 33G MISC Check [...] OTHER MEDS 90 Tab 3 12/18/2019 Active Magnesium Oxide 400 (241.3 mg) Tablet Take 400 mg by mouth daily. 90 Tab 3 12/18/2019 Active traZODone (DESYREL) [...] (BMI) of 50.0 to 59.9 in adult ([facility]),Hypoxemia,ELISSA (obstructive sleep apnea),HTN, goal below 140/80 Take [...] of 7.0%-8.0% ([facility]) TAKE ONE CAPSULE BY MOUTH [...] TWICE DAILY 60 Tab 0 07/16/2020 Active HYDROcodone-Acetamino phen 10-325 MG Oral TabletIndications:Lum bar radiculopathy Take 1 Tab by mouth every 8 hours as needed for Pain, Breakthrough. 9 Tab 0 07/15/2020 Active documented as of this encounter (statuses as of 07/19/2020) Active Problems Problem Noted Date Spinal stenosis [...] failu re 06/12/2018 Controlled substance agreement signed Body mass index (BMI) of 50.0 to 59.9 in adult 06/27/2017 Overview: Per Obesity protocol #1 - [...] as of this encounter (statuses as of 07/19/2020) Resolved Problems Problem Noted Date Resolved Date [...] as of this encounter (statuses as of 07/19/2020) Immunizations Name Administration Dates Next Due Pneumococcal [...] encounter Miscellaneous Notes * Telephone Encounter - Annabella Lobo RN - 07/19/2020 9:00 AM EDT Spoke with patient. She is admitted to [facility]. Feeling a little bit better. advised [facility] will follow-up upon discharge and wished her well. Annabella Lobo RN CCM [facility] Outpatient Logistics Planning Manager Phone: documented in this encounter Plan of Treatment Upcoming Encounters Date Type Specialty Care Team Description 07/28/2020 Hospital Encounter Surgery Cousins, Raj Nolen, DO [address] [place] [address] [phone] 07/28/2020 Surgery Surgery Cousinthaddeus Raj Nolen, DO [address] [place], [place] [address] [phone] INJECTION SACROILIAC JOINT 07/29/2020 Telemedicine Pulmonary Celsa Tafoya CRNP [address] [place] [address] [phone] 08/06/2020 Office Visit Pharmacy Ordaz [facility] [address] [place] [address] 08/07/2020 Home Visit Family Medicine Magaly Morales, Community Health Plumbing Inspector [address] [place] [address] [phone] 08/08/2020 Home Visit [facility] Rema Real LSW [address] [place] [address] [phone] 08/25/2020 Office Visit Nephrology Erik Lenz MD 200 [place] [address] [phone] 08/28/2020 Home Visit [facility] Vera Capellan RN [address] [place], [place] [address] [phone] 09/30/2020 Office Visit Dermatology Apple Kaminski MD 200 [place] [address] [phone] 10/01/2020 Imaging Radiology 11/13/2020 Office Visit Family Medicine Kevin Whiteside DO [address] [place] [address] [phone] 11/27/2020 Office Visit Pulmonary Celsa Tafoya CRNP [address] [place] [address] [phone] 01/08/2021 Office Visit Orthopedics Zack Teague DO [address] [place] [address] [phone] 02/02/2021 Office Visit Cardiology Rey Woodall MD [address] [place] [address] [phone] Health Maintenance Due Date Last Done Comments Zoster Vaccines (3 of 3) 01/02/2020 11/07/2019, 11/24 Pneumococcal Vaccine: 65+ Years (1 of 1 - PPSV23) 2020 08/22/2009, 06/15/2006 BREAST CANCER SCREENING DISCUSSION YEARLY AGES 40-75 07/10/2020 07/10/2019, 06/23/2018, 05/09/2015, Additional history exists DIABETES-HGBA1C EVERY 6 MONTHS 07/24/2020 01/23/2020, 11/07/2019, 08/09/2019, Additional history exists CKD GFR USE SMARTSET 00411 11/06/202005/06, 03/13/2020, 03/07/2020, Additional history exists DIABETES-FOOT EXAM 11/07/2020 11/07/2019, 0 01/01/2019, 12/29/2017, Additional history exists CKD PHOS USE SMARTSET 14578 12/23/202011/26, 11/07/2019, 12/29/2017, Additional history exists DIABETES-URINE MICROALBUMIN EVERY 12 MONTHS 12/23/2020 12/24/2019, 11/30/2019, 05/24/2019, Additional history exists Yearly B-12 01/22/2021 01/23/2020, 02/24, 05/16/2018 DIABETES-EYE EXAM 04/07/2021 04/07/2020, , 02/24/2010 (Done elsewhere), Additional history exists CKD HGB USE SMARTSET 03288 05/06/202105/06, 03/13/2020, 11/30/2019, Additional history exists Influenza Vaccine (FLU shot) Completed , 07/23/2019, 06/12/2018, Additional history exists MENINGOCOCCAL (MENACTRA/MENVEO) Aged Out No longer eligible based on patient's age to complete this topic documented as of this encounter Implants Not on filedocumented as of this encounter Advance Directives Documents on File Type Date Recorded Patient Kosher Dietary Service Manager Expl 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
--- OUTSIDE RECORDS SUMMARY | 2023-06-01 05:18 | External Medical Summary | Summary of Care ---
Author Name Unknown Organization [place] [address] Care Team Providers Care Investment Associate Name Role Phone Stevo Kevin Ocampomelinda Primary Care Provider Encounter Details Date Type Department Care Team Description 07/22/2020 Scan Encounter Unspecified Department <No scans attached> Allergies Active Allergy Reactions Severity Noted Date Comments Codeine 07/08/2014 hallucination Pollen 05/18/2019 Heparin 09/04/2009 Heparin Induced Thrombocytopenia Empagliflozin Other (Please comment) Medium 05/17/2018 3 yeast infections in 6 weeks after starting Morphine And Related 09/16/1997 Hallucinations Tetanus Toxoid Other (Please comment) 06/15/2011 Passed out documented as of this encounter (statuses as of 07/23/2020) Medications Medication Sig Dispensed Refills Start Date [...] Reported on 07/17/2020 Blood Glucose Monitoring Suppl (CrowdOptic ULTRA 2) w/Device KIT Use to test BG values 1 Kit 0 05/20/2020 Active Glucose Blood (SparkflyTOUCH ULTRA BLUE) STRP Check sugars 3-4 times [...] Pain, Breakthrough. 9 Tab 0 07/15/2020 Active Cyclobenzaprine HCl 10 MG Oral Tablet (FLEXERIL) TAKE ONE TABLET BY MOUTH AT BEDTIME NEEDED FOR SPASM 90 Tab 3 07/21/2020 Active documented as of this encounter (statuses as of 07/23/2020) Active Problems Problem Noted Date Spinal stenosis [...] as of this encounter (statuses as of 07/23/2020) Resolved Problems Problem Noted Date Resolved Date [...] as of this encounter (statuses as of 07/23/2020) Immunizations Name Administration Dates Next Due Pneumococcal [...] Encounters Date Type Specialty Care Team Description 07/24/2020 Home Visit [facility] Kindra Hooper CRNP [address] [facility] [place] [address] [phone] 07/28/2020 Hospital Encounter Surgery Raj Ahn, DO [address] [place] [address] [phone] 07/28/2020 Surgery Surgery Raj Ahn, DO [address] [place] [address] [phone] INJECTION SACROILIAC JOINT 07/28/2020 Office Visit Family Medicine Kevin Whiteside, [address] [place] [address] [phone] 07/29/2020 Telemedicine Pulmonary Celsa Tafoya CRNP [address] [place] [address] [phone] 07/30/2020 [facility] Visit [facility] Vera Capellan, RN [address] [place] [address] [phone] 08/06/2020 Office Visit Pharmacy [facility] [address] [place] [address] 08/07/2020 Home Visit Family Medicine Magaly Morales, Community Health Kiln Tester [address], [place] [id number] 08/08/2020 [facility] Visit [facility] Rema Real LSW [address] [place] [address] [phone] 08/25/2020 Office Visit Nephrology Erik Lenz MD [address] [place] [address] [phone] 08/28/2020 Home Visit [facility] Vera Capellan RN [address] [place] [address] [phone] 09/30/2020 Office Visit Dermatology Apple Kaminski MD [address] [place] [address] [phone] 10/01/2020 Imaging Radiology 11/13/2020 Office Visit Family Medicine Kevin Whiteside, [address] [place] [address] [phone] 11/27/2020 Office Visit Pulmonary Celsa Tafoya CRNP [address] [place] [address] [phone] 01/08/2021 Office Visit Orthopedics Zack Teague, [address] [place] [address] [phone] 02/02/2021 Office Visit Cardiology Rey Woodall MD [address] [place] [address] [phone] Health Maintenance Due Date Last Done Comments Zoster Vaccines (3 of 3) 01/02/2020 11/07/2019, 11/24 Pneumococcal Vaccine: 65+ Years (1 of 1 - PPSV23) 2020 08/22/2009, 06/15/2006 BREAST CANCER SCREENING DISCUSSION YEARLY AGES 40-75 07/10/2020 07/10/2019, 06/23/2018, 05/09/2015, Additional history exists DIABETES-HGBA1C EVERY 6 MONTHS 07/24/2020 01/23/2020, 11/07/2019, 08/09/2019, Additional history exists CKD GFR USE SMARTSET 24565 11/06/202005/06, 03/13/2020, 03/07/2020, Additional history exists DIABETES-FOOT EXAM 11/07/2020 11/07/2019, 0 01/01/2019, 12/29/2017, Additional history exists CKD PHOS USE SMARTSET 95598 12/23/2020 03/, 11/07/2019, 12/29/2017, Additional history exists DIABETES-URINE MICROALBUMIN EVERY 12 MONTHS 12/23/2020 12/24/2019, 11/30/2019, 05/24/2019, Additional history exists Yearly B-12 01/22/2021 01/23/2020, 02/24, 05/16/2018 DIABETES-EYE EXAM 04/07/2021 04/07/2020, , 02/24/2010 (Done elsewhere), Additional history exists CKD HGB USE SMARTSET 25159 05/06/202105/06, 03/13/2020, 11/30/2019, Additional history exists *DEPRESSION [...] Documents on File Type Date Recorded Patient Telemarketing Sales 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 Expl 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
--- OUTSIDE RECORDS SUMMARY | 2023-06-01 05:18 | External Medical Summary | Summary of Care ---
Author Name Unknown Organization [place] [address] Care Team Providers Care Blow Moulding Machine Operator Name Role Phone Stevo Kevin Ocampomelinda Primary Care Provider Encounter Details Date Type Department Care Team Description 07/18/2020 Scan Encounter Unspecified Department <No scans attached> Allergies Active Allergy Reactions Severity Noted Date Comments Codeine 07/08/2014 hallucination Pollen 05/18/2019 Heparin 09/04/2009 Heparin Induced Thrombocytopenia Empagliflozin Other (Please comment) Medium 05/17/2018 3 yeast infections in 6 weeks after starting Morphine And Related 09/16/1997 Hallucinations Tetanus Toxoid Other (Please comment) 06/15/2011 Passed out documented as of this encounter (statuses as of 07/21/2020) Medications Medication Sig Dispensed Refills Start Date [...] 7.0%-8.0% ([facility]) TAKE ONE CAPSULE BY MOUTH THREE TIMES DAILY 270 Cap 0 05/20/2020 Active Additional Information Patient taking differently: 300 mg Oral TID, Taking 300mg in am and 600mg in pm, Reported on 07/17/2020 Blood Glucose Monitoring Suppl (Mil[employer] Systems ULTRA 2) w/Device KIT Use to test BG values 1 Kit 0 05/20/2020 Active Glucose Blood (Visual ThreatTOUCH ULTRA BLUE) STRP Check sugars 3-4 times daily, E11.9 400 Strip 3 05/22/2020 Active TRULICITY 1.5 MG/0.5ML SOPNIndications:DM type 2 nursing care encounter ([facility]),Uncontrolled type 2 diabetes mellitus with stage 3 chronic kidney disease, with long-term current use of insulin ([facility]) inject 1.5mg (one pen) under the skin [...] as of this encounter (statuses as of 07/21/2020) Active Problems Problem Noted Date Spinal stenosis [...] as of this encounter (statuses as of 07/21/2020) Resolved Problems Problem Noted Date Resolved Date [...] as of this encounter (statuses as of 07/21/2020) Immunizations Name Administration Dates Next Due Pneumococcal [...] Care Team Description 07/28/2020 Hospital Encounter Surgery Raj Ahn DO [address] [place] [address] [phone] 07/28/2020 Surgery Surgery Raj Ahn DO [address] [place] [address] [phone] INJECTION SACROILIAC JOINT 07/29/2020 Telemedicine Pulmonary Celsa Tafoya CRNP [address] [place] [address] [phone] 08/06/2020 Office Visit Pharmacy [facility] [address] [place] [address] 08/07/2020 Home Visit Family Medicine Magaly Morales, Community Health Hydrator [address] [place] [address] [phone] 08/08/2020 [facility] Visit [facility] Rema Real LSW [address] [place] [address] [phone] 08/25/2020 Office Visit Nephrology Erik Lenz MD [address] [place] [address] [phone] 08/28/2020 Home Visit [facility] Vera Capellan RN [address] [place] [address] [phone] 09/30/2020 Office Visit Dermatology Apple Kaminski MD [address] [place] [address] [phone] 10/01/2020 Imaging Radiology 11/13/2020 Office Visit Family Medicine Kevin Whiteside, [address] [place] [address] [phone] 11/27/2020 Office Visit Pulmonary Celsa Tafoya CRNP [address] [place] [address] [phone] 01/08/2021 Office Visit Orthopedics Zack Teague, [address] [place] [address] [phone] 02/02/2021 Office Visit Cardiology Rey Woodall MD [address] [place] [address] [phone] Health Maintenance Due Date Last Done Comments Zoster Vaccines (3 of 3) 01/02/2020 11/07/2019, 11/24 Pneumococcal Vaccine: 65+ Years (1 of 1 - PPSV23) 2020 08/22/2009, 06/15/2006 BREAST CANCER SCREENING DISCUSSION YEARLY AGES 40-75 07/10/2020 07/10/2019, 06/23/2018, 05/09/2015, Additional history exists DIABETES-HGBA1C EVERY 6 MONTHS 07/24/2020 01/23/2020, 11/07/2019, 08/09/2019, Additional history exists CKD GFR USE SMARTSET 74667 11/06/202005/06, 03/13/2020, 03/07/2020, Additional history exists DIABETES-FOOT EXAM 11/07/2020 11/07/2019, 0 01/01/2019, 12/29/2017, Additional history exists CKD PHOS USE SMARTSET 76146 12/23/2020 03/, 11/07/2019, 12/29/2017, Additional history exists DIABETES-URINE MICROALBUMIN EVERY 12 MONTHS 12/23/2020 12/24/2019, 11/30/2019, 05/24/2019, Additional history exists Yearly B-12 01/22/2021 01/23/2020, 02/24, 05/16/2018 DIABETES-EYE EXAM 04/07/2021 04/07/2020, , 02/24/2010 (Done elsewhere), Additional history exists CKD HGB USE SMARTSET 22837 05/06/202105/06, 03/13/2020, 11/30/2019, Additional history exists Influenza Vaccine (FLU shot) Completed , 07/23/2019, 06/12/2018, Additional history exists MENINGOCOCCAL (MENACTRA/MENVEO) Aged Out No longer eligible based on patient's age to complete this topic documented as of this encounter Implants Not on filedocumented as of this encounter Advance Directives Documents on File Type Date Recorded Patient Bottom Bleacher Expl 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
--- OUTSIDE RECORDS SUMMARY | 2023-06-01 05:18 | External Medical Summary | Summary of Care ---
Author Name Unknown Organization [place] [address] Care Team Providers Care Kit Assembler Name Role Phone Kevin Whiteside DO Primary Care Provider Reason for Visit * Reason Comments eRx-Medication Refill Encounter Details Date Type Department Care Team Description 07/18/2020 Refill Family Practice [facility] [address] [place] [address] Kevin Whiteside DO [address] [facility] [place] [address] [phone] Allergies Active Allergy Reactions Severity Noted Date [...] 3 0 Active levothyroxine (LEVOXYL) 200 MCG TabletIndications:P ostsurgical hypothyroidism TAKE ONE TABLET BY MOUTH EVERY DAY AT LEAST 30 MINUTES BEFORE BREAKFAST OR OTHER MEDS 90 Tab 3 0 Active Magnesium Oxide 400 (241.3 mg) Tablet Take 400 mg by mouth daily. 90 Tab 3 0 Active traZODone (DESYREL) [...] 3 0 Active levothyroxine (LEVOXYL) 25 MCG TabletIndications:P ostsurgical [...] (BMI) of 50.0 to 59.9 in adult ([facility]),Hypoxemia,ELISSA (obstructive sleep apnea),HTN, goal below 140/80 Take 0.5 Tabs by mouth 2 times a day. 90 Tab 3 0 Active DIURETIC TITRATION PLANIndications:Chr onic diastolic congestive heart failure ([facility]) If no improvement on day 3, contact [...] MG TabletIndications:C hronic diastolic congestive heart failure ([facility]) Take 2 Tabs by mouth daily. 180 Tab 3 0 Active Additional Information Patient taking differently: 40 mg Oral BID, Reported on 06/13/2020 colchicine 0.6 MG TabletIndications:L eukocytoclastic vasculitis ([facility]) Take 1/2 tab daily 45 Tab 1 0 Active clobetasol propionate (TEMOVATE) 0.05 % creamIndications:Kalee rosas saida Apply to rash on the hands and [...] with insulin 200 Each 11 0 Active traMADol HCl 50 MG Oral Tablet (ULTRAM)Indications :Chronic pain syndrome Take 1 Tab by mouth every 8 hours as needed for Pain, Severe. 90 Tab 0 0 Active buPROPion HCl ER (XL) 150 [...] diabetes clinic 81 mL 3 0 Active clonazePAM 0.5 MG Oral Tablet (KlonoPIN)Indicatio ns:Anxiety state TAKE ONE TABLET BY MOUTH TWICE DAILY 60 Tab 0 0 Active HYDROcodone-Acetami nophen 10-325 MG Oral TabletIndications:L umbar radiculopathy Take 1 Tab by mouth every 8 hours as needed for Pain, Breakthrough. 9 Tab 0 0 Active Cyclobenzaprine HCl 10 MG Oral Tablet (FLEXERIL) TAKE ONE TABLET BY MOUTH AT BEDTIME NEEDED FOR SPASM 90 Tab 3 0 Active cyclobenzaprine (FLEXERIL) 10 MG Tablet TAKE ONE TABLET BY MOUTH AT BEDTIME NEEDED FOR MUSCLE SPASM 90 Tab 2 8 07/21/20 20 Discontinued documented as of this encounter [...] encounter Miscellaneous Notes * Telephone Encounter - Gin Clark MD - 07/21/2020 8:30 AM EDT Signed Prescriptions: Disp Refills Cyclobenzaprine HCl 10 MG Oral Tablet (FLE*90 Tab 3 Sig: TAKE ONE TABLET BY MOUTH AT BEDTIME NEEDED FOR SPASM Authorizing Provider: GIN CLARK * Telephone Encounter - Josef Roberto [facility] - 07/21/2020 6:51 AM EDT Pending Prescriptions: Disp Refills Cyclobenzaprine HCl 10 MG Oral Tablet (FLE*90 Tab 3 Sig: TAKE ONE TABLET BY MOUTH AT BEDTIME NEEDED FOR SPASM * Telephone Encounter - Josef Roberto [facility] - 07/21/2020 6:51 AM EDT Pending Prescriptions: Disp Refills Cyclobenzaprine HCl 10 MG Oral Tablet (FLE*90 Tab 3 Sig: TAKE ONE TABLET BY MOUTH AT BEDTIME NEEDED FOR SPASM Last Office/Telemedicine Visit: 07/15/2020 Next Office Visit: 11/13/2020 Scheduled Provider(s): Kevin Whietside, DO If no future appointments scheduled, and last appointment is greater than a year ago, please schedule patient for a follow-up appointment Last date the medication was ordered: 08/01/18 Pharmacy: [id number] Is this request for a controlled substance?No Urine Drug Screen: Results for orders placed or performed in visit on 09/04/18 OPIOIDS/BENZO COMPLIANCE MONITORING W/INTERP Result Value COMPLIANCE INTERP (NOTE) URINE DRUG SCREEN RESULT AMPHETAMINES NEGATIVE BARBITURATES NEGATIVE BENZODIAZEPINES REFER TO CONFIRMATION RESULT (A) CANNABINOIDS NEGATIVE COCAINE METABOLITE NEGATIVE METHADONE METABOLITE NEGATIVE MORPHINE / CODEINE NEGATIVE OXYCODONE NEGATIVE COMMENT THE ABOVE SCREENING [...] Team Description 07/28/2020 Hospital Encounter Surgery Raj Ahn, [address] [place] [address] [phone] 07/28/2020 Surgery Surgery Raj Ahn DO [address] [place] [address] [phone] INJECTION SACROILIAC JOINT 07/29/2020 Telemedicine Pulmonary Celsa Tafoya CRNP [address] [place] [address] [phone] 08/06/2020 Office Visit [facility] [address] [place] [address] 08/07/2020 Home Visit Family Medicine Magaly Morales, Community Health Security Sergeant [address] [place] [address] 08/08/2020 [facility] Visit [facility] Rema Real LSW [address] [address] [phone] 08/25/2020 Office Visit Nephrology Erik Lenz MD [address] [facility] [place] [address] [phone] 08/28/2020 Home Visit [facility] Vera Capellan RN [address] [place] [address] [phone] 09/30/2020 Office Visit Dermatology Apple Kaminski MD [address] [facility] [place] [address] [phone] 10/01/2020 Imaging Radiology 11/13/2020 Office Visit Family Medicine Kevin Whiteside DO [address] [place] [address] [phone] 11/27/2020 Office Visit Pulmonary Celsa Tafoya CRNP [address] [place] [address] [phone] 01/08/2021 Office Visit Orthopedics Zack Teague, [address] [place] [phone] 02/02/2021 Office Visit Cardiology Rey Woodall MD [address] [place] [phone] Health Maintenance Due Date Last Done Comments Zoster Vaccines (3 of 3) 01/02/2020 11/07/2019, 11/24 Pneumococcal Vaccine: 65+ Years (1 of 1 - PPSV23) 2020 08/22/2009, 06/15/2006 BREAST CANCER SCREENING DISCUSSION YEARLY AGES 40-75 07/10/2020 07/10/2019, 06/23/2018, 05/09/2015, Additional history exists DIABETES-HGBA1C EVERY 6 MONTHS 07/24/2020 01/23/2020, 11/07/2019, 08/09/2019, Additional history exists CKD GFR USE SMARTSET 32297 11/06/202005/06, 03/13/2020, 03/07/2020, Additional history exists DIABETES-FOOT EXAM 11/07/2020 11/07/2019, 0 01/01/2019, 12/29/2017, Additional history exists CKD PHOS USE SMARTSET 34263 12/23/2020 03/3 , 11/07/2019, 12/29/2017, Additional history exists DIABETES-URINE MICROALBUMIN EVERY 12 MONTHS 12/23/2020 12/24/2019, 11/30/2019, 05/24/2019, Additional history exists Yearly B-12 01/22/2021 01/23/2020, 02/24, 05/16/2018 DIABETES-EYE EXAM 04/07/2021 04/07/2020, , 02/24/2010 (Done elsewhere), Additional history exists CKD HGB USE SMARTSET 47249 05/06/202105/06, 03/13/2020, 11/30/2019, Additional history exists Influenza Vaccine (FLU shot) Completed , 07/23/2019, 06/12/2018, Additional history exists MENINGOCOCCAL (MENACTRA/MENVEO) Aged Out No longer eligible based on patient's age to complete this topic documented as of this encounter Implants Not on filedocumented as of this encounter Advance Directives Documents on File Type Date Recorded Patient Cable Weaver Expl 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
--- OUTSIDE RECORDS SUMMARY | 2023-06-01 05:18 | External Medical Summary | Summary of Care ---
Author Name Unknown Organization [place] [address] Care Team Providers Care Light Technician Name Role Phone Stevo Kevin Ocampomelinda Primary Care Provider Encounter Details Date Type Department Care Team Description 07/19/2020 Scan Encounter Unspecified Department <No scans attached> [...] goal of 7.0%-8.0% ([facility]) TAKE ONE CAPSULE BY MOUTH THREE TIMES DAILY 270 Cap 0 05/20/2020 Active Additional Information Patient taking differently: 300 mg Oral TID, Taking 300mg in am and 600mg in pm, Reported on 07/17/2020 Blood Glucose Monitoring Suppl ([employer] ULTRA 2) w/Device KIT Use to test BG values 1 Kit 0 05/20/2020 Active Glucose Blood (ProspectStreamTOUCH ULTRA BLUE) STRP Check sugars 3-4 times daily, E11.9 400 Strip 3 05/22/2020 Active TRULICITY 1.5 MG/0.5ML SOPNIndications:DM type 2 nursing care encounter ([facility]),Uncontrolled type 2 diabetes mellitus with [...] Raj Ahn DO [address] [place] [address] [phone] 07/28/2020 Surgery Surgery Raj Ahn DO [address] [place] [address] [phone] INJECTION SACROILIAC JOINT 07/29/2020 Telemedicine Pulmonary Celsa Tafoya CRNP [address] [place] [address] [phone] 08/06/2020 Office Visit [facility] [address] [place] [address] 08/07/2020 Home Visit Family Medicine Magaly Morales, Community Health Department Store Salesperson [address] [place] [address] [phone] 08/08/2020 [facility] Visit [facility] Rema Real LSW [address] [place] [address] [phone] 08/25/2020 Office Visit Nephrology Erik Lenz MD [address] [place] [address] [phone] 08/28/2020 Home Visit [facility] Vera Capellan RN [address] [place] [address] [phone] 09/30/2020 Office Visit Dermatology Apple Kaminski MD [address] [place] [address] [phone] 10/01/2020 Imaging Radiology 11/13/2020 Office Visit Family Medicine Kevin Whiteside, [address] [place] [address] [phone] 11/27/2020 Office Visit Pulmonary Celsa Tafoya CRNP [address] [place] [address] [phone] 01/08/2021 Office Visit Orthopedics Zack Teague, [address] [place] [address] [phone] 02/02/2021 Office Visit Cardiology Rey Woodall MD [address] [place] [address] [phone] Health Maintenance Due Date Last Done Comments Zoster Vaccines (3 of 3) 01/02/2020 11/07/2019, 11/24 Pneumococcal Vaccine: 65+ Years (1 of 1 - PPSV23) 2020 08/22/2009, 06/15/2006 BREAST CANCER SCREENING DISCUSSION YEARLY AGES 40-75 07/10/2020 07/10/2019, 06/23/2018, 05/09/2015, Additional history exists DIABETES-HGBA1C EVERY 6 MONTHS 07/24/2020 01/23/2020, 11/07/2019, 08/09/2019, Additional history exists CKD GFR USE SMARTSET 03544 11/06/202005/06, 03/13/2020, 03/07/2020, Additional history exists DIABETES-FOOT EXAM 11/07/2020 11/07/2019, 0 01/01/2019, 12/29/2017, Additional history exists CKD PHOS USE SMARTSET 31845 12/23/2020 03/, 11/07/2019, 12/29/2017, Additional history exists DIABETES-URINE MICROALBUMIN EVERY 12 MONTHS 12/23/2020 12/24/2019, 11/30/2019, 05/24/2019, Additional history exists Yearly B-12 01/22/2021 01/23/2020, 02/24, 05/16/2018 DIABETES-EYE EXAM 04/07/2021 04/07/2020, , 02/24/2010 (Done elsewhere), Additional history exists CKD HGB USE SMARTSET 70118 05/06/202105/06, 03/13/2020, 11/30/2019, Additional history exists Influenza Vaccine (FLU shot) Completed , 07/23/2019, 06/12/2018, Additional history exists MENINGOCOCCAL (MENACTRA/MENVEO) Aged Out No longer eligible based on patient's age to complete this topic documented as of this encounter Implants Not on filedocumented as of this encounter Advance Directives Documents on File Type Date Recorded Patient Baker Bench Expl 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
--- OUTSIDE RECORDS SUMMARY | 2023-06-01 05:18 | External Medical Summary | Summary of Care ---
Author Name Unknown Organization [place] [address] Care Team Providers Care Inbound Sales Advisor Name Role Phone Stevo Kevin Ocampomelinda Primary Care Provider Encounter Details Date Type Department Care Team Description 07/24/2020 Orders Only Outcomes Research Department [address] [place] [address] Feng Reid CHRA MyCode Research Other*[id number] Allergies Active Allergy Reactions Severity Noted Date Comments Codeine 07/08/2014 hallucination Pollen 05/18/2019 Heparin 09/04/2009 Heparin Induced Thrombocytopenia Empagliflozin Other (Please comment) Medium 05/17/2018 3 yeast infections in 6 weeks after starting Morphine And Related 09/16/1997 Hallucinations Tetanus Toxoid Other (Please comment) 06/15/2011 Passed out documented as of this encounter (statuses as of 07/24/2020) Medications Medication Sig Dispensed Refills Start Date [...] A1c goal of 7.0%-8.0% ([facility]) TAKE ONE CAPSULE BY MOUTH THREE TIMES DAILY 270 Cap 0 05/20/2020 Active Additional Information Patient taking differently: 300 mg Oral TID, Taking 300mg in am and 600mg in pm, Reported on 07/17/2020 Blood Glucose Monitoring Suppl ([employer]CH ULTRA 2) w/Device KIT Use to test BG values 1 Kit 0 05/20/2020 Active Glucose Blood (ONETOUCH ULTRA BLUE) STRP Check sugars 3-4 times daily, E11.9 400 Strip 3 05/22/2020 Active TRULICITY 1.5 MG/0.5ML SOPNIndications:DM type 2 nursing care encounter (HCC),Uncontrolled type 2 diabetes mellitus with stage 3 chronic kidney disease, with long-term current use of insulin ([facility]) inject 1.5mg (one pen) under [...] as of this encounter (statuses as of 07/24/2020) Active Problems Problem Noted Date Spinal stenosis [...] 10/14/2014 Overview: ICD-10 update of inactive term [place] filter in place 08/19/2014 History of pulmonary embolus (PE) 2013 Statin intolerance 07/16/2014 HTN, goal below 130/80 02/22/2014 Venous insufficiency 02/07/2013 ELISSA (obstructive sleep apnea) 09/16/2011 Overview: CPAP 11 cwp Mild, AHI 11.3 but with significant nocturnal hypoxemia Dicks Postsurgical hypothyroidism 06/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 documented as of this encounter (statuses as of 07/24/2020) Resolved Problems Problem Noted Date Resolved Date [...] as of this encounter (statuses as of 07/24/2020) Immunizations Name Administration Dates Next Due Pneumococcal [...] Specialty Care Team Description 07/24/2020 [facility] Kindra Hooper CRNP [address] [facility] [place] [address] [phone] 07/28/2020 Hospital Encounter Surgery Raj Ahn, DO [address] [place] [address] [phone] 07/28/2020 Surgery Surgery Raj Ahn, DO [address] [place] [address] [phone] INJECTION SACROILIAC JOINT 07/28/2020 Office Visit Family Medicine Kevin Whiteside, DO [address] [place] [address] [phone] 07/29/2020 Telemedicine Pulmonary Celsa Tafoya CRNP [address] [place] [address] [phone] 07/30/2020 Home Visit [facility] Vera Capellan, LEXI [address] [place] [address] [phone] 08/06/2020 Office Visit Pharmacy [facility] [address] [place] [address] 08/07/2020 Home Visit Family Medicine Magaly Morales, Community Health Book Sewer [facility] [place] [address] [phone] 08/08/2020 Home Visit [facility] Rema Real LSW [address] [place] [address] [phone] 08/25/2020 Office Visit Nephrology Erik Lenz MD [address] [facility] [place] [address] [phone] 08/28/2020 Home Visit [facility] Vera Capellan RN [address] [place] [address] [phone] 09/30/2020 Office Visit Dermatology Apple Kaminski MD [address] [facility] [place] [address] [phone] 10/01/2020 Imaging Radiology 11/13/2020 Office Visit Family Medicine Kevin Whiteside DO [address] [place] [address] [phone] 11/27/2020 Office Visit Pulmonary Celsa Tafoya CRNP [address] [place] [address] [phone] 01/08/2021 Office Visit Orthopedics Zack Teague DO [address] [place] [address] [phone] 02/02/2021 Office Visit Cardiology Rey Woodall MD [address] [place] [address] [phone] Scheduled Orders Name Type Priority Associated Diagnoses Orde r Schedule MYCODE SUBSEQUENT ADULT Lab Routine MyCode Research Other*[id number] Every 6 Months for 2 Occurrences starting 07/24/2020 until 08/13/2021 Health Maintenance Due Date Last Done Comments Zoster Vaccines (3 of 3) 01/02/2020 11/07/2019, 11/24 Pneumococcal Vaccine: 65+ Years (1 of 1 - PPSV23) 2020 08/22/2009, 06/15/2006 BREAST CANCER SCREENING DISCUSSION YEARLY AGES 40-75 07/10/2020 07/10/2019, 06/23/2018, 05/09/2015, Additional history exists DIABETES-HGBA1C EVERY 6 MONTHS 07/24/2020 01/23/2020, 11/07/2019, 08/09/2019, Additional history exists CKD GFR USE SMARTSET 81517 11/06/202005/06, 03/13/2020, 03/07/2020, Additional history exists DIABETES-FOOT EXAM 11/07/2020 11/07/2019, 0 01/01/2019, 12/29/2017, Additional history exists CKD PHOS USE SMARTSET 67921 12/23/2020 03/3 , 11/07/2019, 12/29/2017, Additional history exists DIABETES-URINE MICROALBUMIN EVERY 12 MONTHS 12/23/2020 12/24/2019, 11/30/2019, 05/24/2019, Additional history exists Yearly B-12 01/22/2021 01/23/2020, 02/24, 05/16/2018 DIABETES-EYE EXAM 04/07/2021 04/07/2020, , 02/24/2010 (Done elsewhere), Additional history exists CKD HGB USE SMARTSET 88228 05/06/202105/06, 03/13/2020, 11/30/2019, Additional history exists *DEPRESSION [...] this encounter Visit Diagnoses Diagnosis MyCode Research Other*[id number] Inflammation of sacroiliac joint (HCC) Sacroiliitis, not elsewhere classified documented in this encounter Advance Directives Documents on File Type Date Recorded Patient Japanese Interpreter Expl 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
--- OUTSIDE RECORDS SUMMARY | 2023-06-01 05:18 | External Medical Summary | Summary of Care ---
Author Name Unknown Organization [place] [address] Care Team Providers Care Industrial Relations Officer Name Role Phone Kevin Whiteside DO Primary Care Provider Reason for Visit * Reason Onset Date Comments [facility]: Maintenance 07/23/2020 Encounter Details Date Type Department Care Team Description 07/23/2020 Telephone [facility] [address] [facility] [place] [id number] [facility], Nurse [facility] [address] [place] [address] [phone] [facility]: Maintenance Allergies Active Allergy [...] TITRATION PLANIndications:Chron ic diastolic congestive heart failure ([facility]) If no improvement on day 3, contact [...] Reported on 07/17/2020 Blood Glucose Monitoring Suppl ([employer]OUCH ULTRA 2) w/Device KIT Use to test BG values 1 Kit 0 05/20/2020 Active Glucose Blood (ONETOUCH ULTRA BLUE) STRP Check sugars 3-4 times daily, E11.9 400 Strip 3 05/22/2020 Active TRULICITY 1.5 MG/0.5ML SOPNIndications:DM type 2 nursing care encounter ([facility]),Uncontrolled type 2 diabetes mellitus with stage 3 chronic kidney disease, with long-term current use of insulin ([facility]) inject 1.5mg (one pen) under the skin once weekly 6 mL 1 05/27/2020 Active furosemide (LASIX) 40 MG TabletIndications:Chr onic diastolic congestive heart failure ([facility]) Take 2 Tabs by mouth daily. 180 Tab 3 05/28/2020 Active Additional Information Patient taking differently: 40 mg Oral BID, Reported on 06/13/2020 colchicine 0.6 MG TabletIndications:Jacobo kocytoclastic vasculitis ([facility]) Take 1/2 tab daily 45 Tab 1 [...] Telephone Encounter - Karyn Clarke LPN - 07/23/2020 10:03 AM EDT Patient discharged to home from [facility] Needing TOCs Scheduled as follows: Malorie Hooper: 07/24 1pm Vera Capellan: 07/30 3pm Patient already scheduled for PCP on 07/28 and Pulm on 07/29 documented in this encounter Plan of Treatment Upcoming Encounters Date Type Specialty Care Team Description 07/24/2020 Home Visit [facility] Kindra Hooper CRNP [address] [facility] [place] [address] [phone] 07/28/2020 Hospital Encounter Surgery DavontesinthaddeusRaj Callum, DO [address] [place] [address] [phone] 07/28/2020 Surgery Surgery CousinRaj travis, DO [address] [place] [address] [phone] INJECTION SACROILIAC JOINT 07/28/2020 Office Visit Family Medicine Kevin Whiteside, [address] [place] [address] [phone] 07/29/2020 Telemedicine Pulmonary Celsa Tafoya CRNP [address] [place] [address] [phone] 07/30/2020 Home Visit [facility] Vera Capellan RN [address] [place] [address] [phone] 08/06/2020 Office Visit Pharmacy [facility] [address] [place] [address] 08/07/2020 Home Visit Family Medicine Magaly Morales, Community Health Appraisal Technician [address] [place] [address] [phone] 08/08/2020 Home Visit [facility] Rema Real LSW [address] [place] [address] [phone] 08/25/2020 Office Visit Nephrology Erik Lenz MD [address] [place], [place] [address] [phone] 08/28/2020 Home Visit [facility] Vera Capellan, RN [address] [place] [address] [phone] 09/30/2020 Office Visit Dermatology Apple Kaminski MD [address] [place] [address] [phone] 10/01/2020 Imaging Radiology 11/13/2020 Office Visit Family Medicine Kevin Whiteside, DO [address] [place] [address] [phone] 11/27/2020 Office Visit Pulmonary Celsa Tafoya CRNP [address] [place], [place] [id number] 01/08/2021 Office Visit Orthopedics Zack Teague, [address] [place] [address] [phone] 02/02/2021 Office Visit Cardiology Rye Woodall MD [address] [place] [address] [phone] Health Maintenance Due Date Last Done Comments Zoster Vaccines (3 of 3) 01/02/2020 11/07/2019, 11/24 Pneumococcal Vaccine: 65+ Years (1 of 1 - PPSV23) 2020 08/22/2009, 06/15/2006 BREAST CANCER SCREENING DISCUSSION YEARLY AGES 40-75 07/10/2020 07/10/2019, 06/23/2018, 05/09/2015, Additional history exists DIABETES-HGBA1C EVERY 6 MONTHS 07/24/2020 01/23/2020, 11/07/2019, 08/09/2019, Additional history exists CKD GFR USE SMARTSET 83489 11/06/202005/06, 03/13/2020, 03/07/2020, Additional history exists DIABETES-FOOT EXAM 11/07/2020 11/07/2019, 0 01/01/2019, 12/29/2017, Additional history exists CKD PHOS USE SMARTSET 03425 12/23/2020 03/, 11/07/2019, 12/29/2017, Additional history exists DIABETES-URINE MICROALBUMIN EVERY 12 MONTHS 12/23/2020 12/24/2019, 11/30/2019, 05/24/2019, Additional history exists Yearly B-12 01/22/2021 01/23/2020, 02/24, 05/16/2018 DIABETES-EYE EXAM 04/07/2021 04/07/2020, , 02/24/2010 (Done elsewhere), Additional history exists CKD HGB USE SMARTSET 31129 05/06/202105/06, 03/13/2020, 11/30/2019, Additional history exists *DEPRESSION [...] on File Type Date Recorded Patient Clinical Advisor Expl 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
--- OUTSIDE RECORDS SUMMARY | 2023-06-01 05:18 | External Medical Summary | Summary of Care ---
Author Name Unknown Organization [place] [address] Care Team Providers Care Traffic Counter Name Role Phone Kevin Whiteside DO Primary Care Provider Reason for Visit * Reason Onset Date Comments Hospital Follow-Up Pt reports so re mouth since getting home from the hospital Hospital Follow-Up 07/28/2020 Encounter Details Date Type Department Care Team Description 07/28/2020 Office Visit [facility] [address] [place] [address] Kevin Whiteside DO [address] [place] [address] [phone] Hospital discharge follow-up*; Pain in mouth; HTN, goal below 130/80; Type 2 diabetes mellitus with hemoglobin A1c goal of 7.0%-8.0% ([facility]); Chronic respiratory failure with hypoxia ([facility]); Controlled substance agreement signed; Morbid obesity with BMI of 50.0-59.9, adult ([facility]); Mild episode of recurrent major depressive disorder ([facility]) Allergies [...] as of this encounter (statuses as of 07/28/2020) Medications Medication Sig Dispensed Refills Start Date [...] (BMI) of 50.0 to 59.9 in adult ([facility]),Hypoxemia,ELISSA (obstructive sleep apnea),HTN, goal below 140/80 Take 0.5 Tabs by mouth 2 times a day. 90 Tab 3 03/13/2020 Active DIURETIC TITRATION PLANIndications:Chr onic diastolic congestive heart failure ([facility]) If no improvement on day 3, contact [...] 7.0%-8.0% ([facility]) TAKE ONE CAPSULE BY MOUTH THREE TIMES [...] MG TabletIndications:C hronic diastolic congestive heart failure ([facility] [...] 07/01/2020 Active clonazePAM 0.5 MG Oral Tablet (KlonoPIN)Indicatio [...] a day. 237 mL 1 07/28/2020 Active Doxycycline Hyclate 150 MG Oral Tablet Take 150 mg by mouth 2 times a day. Treatment for lymes disease. Dose uncertain. 0 07/22/2020 0 Discontinue d(Medicatio n/Dose Changed) documented as of this encounter (statuses as of 07/28/2020) Active Problems Problem Noted Date Spinal stenosis [...] as of this encounter (statuses as of 07/28/2020) Resolved Problems Problem Noted Date Resolved Date [...] as of this encounter (statuses as of 07/28/2020) Immunizations Name Administration Dates Next Due Pneumococcal [...] Sign Reading Time Taken Comments Blood Pressure 124/76 07/28/2020 1:53 PM EST Pulse 100 07/28/2020 1:53 PM EST Temperature 36.6 C (97.9 F) 07/28/2020 1:53 PM ES T Respiratory Rate - - Oxygen Saturation 94% 07/28/2020 1:53 PM EST Inhaled Oxygen Concentration - - Weight 148.8 kg (328 lb) 07/28/2020 1:53 PM EST Height - - Body Mass Index 56.3 07/15/2020 7:39 AM EDT documented in this encounter Progress Notes * Kevin Whiteside, DO - 07/28/2020 2:00 PM EST Nursing Notes: Izabela Crump LPN 07/28/20 1356 Signed The patient has been properly identified by confirmation of name and date of . Chief Complaint Patient presents with Hospital Follow-Up Pt reports sore mouth since getting home from the hospital ASSESSMENT/PLAN: 1. Hospital discharge follow-up Recovering well from Lyme disease Mouth pain ongoing with erythema but no thrush Will treat with mouth wash - DISCH MED RECON CUR MED LIS 2. Pain in mouth - First-Mouthwash BLM Mouth/Throat Suspension; Swish and spit 30 mL 4 times a day. Dispense: 237 mL; Refill: 1 3. HTN, goal below 130/80 stable 4. Type 2 diabetes mellitus with hemoglobin A1c goal of 7.0%-8.0% (HCC) Stable, recheck labs at next visit 5. Chronic respiratory failure with hypoxia (HCC) stable 6. Controlled substance agreement signed intact 7. Morbid obesity with BMI of 50.0-59.9, adult (HCC) stable 8. Mild episode of recurrent major depressive disorder (HCC) stable HPI: Stephanie Camp is a 65 year old female who: Presents in f/u to hospital visit Was dx with lyme disease tx given with doxy Doing much better since that time ROS: CONSTITUTIONAL: no weight loss, no fevers, no sweats HEENT: no change in vision or hearing, no congestion, no sore throat CARDIAC: no chest pain, no palpitations, no orthopnea, no AVENDAÑO, no syncope RESP: no wheezing and no SOB GI: no pain, no NVDC, no melena/hematochezia SKIN: no rashes MSK: no significant joint or muscle pain and no swelling : no dysuria or discharge NEURO: no memory loss, no numbness PSYCH: no SI/HI PHYSICAL EXAMINATION: BP 124/76 | Pulse 100 | Temp 36.6 C (97.9 F) (Tympanic) | Wt (!) 148.8 kg (328 lb) | LMP 03/11/2003 | SpO2 94% | BMI 56.30 kg/m | BSA 2.59 m GENERAL: alert, healthy, no distress, well nourished and well developed HEAD: normocephalic, atraumatic EYES: PERRL, EOMI, Conjunctiva are pink [...] are normal, no rashes or significant lesions EXTREMITIES: no joint deformities, effusion, or inflammation, no edema, no clubbing, no cyanosis, Full ROM, Pulses Intact, Strength equal bilaterally NEURO: alert & oriented x 3 with fluent speech, no focal motor/sensory deficits, gait normal, reflexes normal and symmetric Patient Active Problem List Diagnosis Code Dyslipidemia E78.5 ELLIE (generalized anxiety disorder) F41.1 Postsurgical hypothyroidism E89.0 ELISSA (obstructive sleep apnea) G47.33 Venous insufficiency I87.2 HTN, goal below 130/80 I10 History of pulmonary embolus (PE) Z86.711 Statin intolerance Z78.[address] [place] [address] Z95.828 Type 2 diabetes mellitus with hemoglobin A1c goal of 7.0%-8.0% ([facility]) E11.9 Fibromyalgia M79.7 Abnormality of gait R26.9 Restless legs syndrome G25.81 Gastroesophageal reflux disease with esophagitis K21.00 Morbid obesity with BMI of 50.0-59.9, adult ([facility]) E66.01, Z68.43 Controlled substance agreement signed Z79.899 Chronic diastolic congestive heart failure ([facility]) I50.32 Mild episode of recurrent major depressive disorder ([facility]) F33.0 Lumbar radiculopathy M54.16 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, NYHA class 1 and CKD stage 3 ([facility]) I13.0, I50.30, N18.30 Chronic respiratory failure with hypoxia ([facility]) J96.11 Hyperparathyroidism, secondary renal ([facility]) N25.81 Vasculitis ([facility]) I77.6 Primary osteoarthritis of left knee M17.12 Spinal stenosis of lumbar region without neurogenic claudication M48.061 Past Medical History: Diagnosis Date ELSIE (acute kidney injury) ([facility]) 06/12/2018 Allergic rhinitis due to other allergen Backache Diverticulosis of colon 01/28/06 DM type 2, not at goal ([facility]) ELLIE (generalized anxiety disorder) 09/13/2009 Goiter [place] filter in place 08/19/2014 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[facility]) 08/22/2009 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[facility]) 06/12/2018 History of pulmonary embolus (PE) 07/16/2014 HTN, goal below 140/90 Impetigo 09/27/2018 Obesity, BMI not known Perforation of intestine ([facility]) 1996 COLON -- 1996 Pneumonia in aspergillosis(484.6) 09/14/2009 Spinal stenosis of lumbar region without neurogenic claudication 07/15/2020 Spontaneous pneumothorax 09/14/2009 Statin intolerance 07/16/2014 Type 2 diabetes mellitus with hemoglobin A1c goal of 7.0%-8.0% ([facility]) 10/14/2014 ICD-10 update of inactive term Vaginal karmen 07/13/2018 Past Surgical History: Procedure Laterality Date ARTHROPLASTY KNEE TOTAL Right 07/24/14 R COLONOSCOPY, DIAGNOSTIC (RECTUM) 02/18/2016 normal, repeat 10 yrs/[facility] COLONOSCOPY, GI REFERRAL OP 5/5/06 diverticulosis--repeat 10 years INCISION OF [place], PLANNED [...] HERNIA 1998 REVISION OF COLOSTOMY, SIMPLE 1998 SUTURE, LARGE INTESTINE W/COLOSTOMY 1996 perforation R colon with colostomy VENA CAVA FILTER/LIGATION/CLIP 08/19/09 Frank filter placement through the right femoral 08/19/[address] Lerma at [facility] Current Outpatient Medications Medication Sig Dispense Refill Doxycycline Hyclate 100 MG Oral Capsule Take [...] Tab by mouth daily. 1 Tab 0 Cyclobenzaprine HCl 10 MG Oral Tablet (FLEXERIL) TAKE ONE TABLET BY MOUTH AT BEDTIME NEEDED FOR SPASM 90 Tab 3 clonazePAM 0.5 MG Oral Tablet (KlonoPIN) TAKE ONE TABLET BY MOUTH TWICE DAILY 60 Tab 0 buPROPion HCl ER (XL) 150 MG Oral Tablet Extended Release 24 Hour (Wellbutrin XL) Take 1 Tab bymouth daily. 30 Tab 5 NovoLOG FlexPen 100 UNIT/ML Subcutaneous Solution Pen-injector (insulin aspart) Inject up to 30units with meals plus sliding scale as directed by diabetes clinic 81 mL 3 traMADol HCl 50 MG Oral Tablet (ULTRAM) Take 1 Tab by mouth every 8 hours as needed for Pain, Severe. 90 Tab 0 BD Pen Needle Short [...] once weekly 6 mL 1 Glucose Blood (EcoScrapsTOUCH ULTRA BLUE) STRP Check sugars 3-4 times daily, E11.9 400 Strip 3 Blood Glucose Monitoring Suppl (EveryclickUCH ULTRA 2) w/Device KIT Use to test [...] times a day as needed for Constipation. clobetasol propionate (TEMOVATE) 0.05 % cream Apply to rash on the hands and dorsal feet twice daily x 1 week, then as needed for flares. 30 g 1 zoster vac recomb adjuvanted (SHINGRIX) 50 MCG/0.5ML injection Inject 0.5 mL into a large muscle now and repeat dose in 60 to 180 days. Please fax date this was given to our office. (pt already had 1st done in 10/2019 1 Each 0 Review of patient's allergies indicates: Allergen Reactions Jardiance [Empagliflozin] Other (Please comment) 3 yeast infections in 6 weeks after starting Codeine hallucination Hay Fever [Pollen] Heparin Heparin Induced Thrombocytopenia Hydrocodone Neuro complications (Please comment) Morphine And Related Hallucinations Tetanus Toxoid Other (Please comment) Passed out Kevin Whiteside DO [address] [address] (This note was completed using the dictation program Fluency Direct. As such, there may be misspellings, word substitutions, or other variations that should not change the essence of the clinical content of this encounter note.If there is need for further clarification, please direct questions to the provider listed above.) documented in this encounter Nursing Notes * Izabela Crump LPN - 07/28/2020 1:53 PM EST The patient has been properly identified by confirmation of name and date of . Chief Complaint Patient presents with Hospital Follow-Up Pt reports sore mouth since getting home from the hospital documented in this encounter Plan of Treatment Upcoming Encounters Date Type Specialty Care Team Description 07/29/2020 Telemedicine Pulmonary Celsa Tafoya CRNP [address] [place] [address] [phone] 07/30/2020 Home Visit [facility] Vera Capellan, LEXI [address] [place] [address] [phone] 08/06/2020 Office Visit Pharmacy Danuta Ordaz [facility] [address] [place] [address] 08/07/2020 Home Visit Family Medicine Magaly Morales, Community Health Nipple Machine Operator [address] [place] [address] [phone] 08/08/2020 Home Visit [facility] Rema Real LSW [address] [place] [address] [phone] 08/25/2020 Office Visit Nephrology Erik Lenz MD [address] [place] [address] [phone] 08/28/2020 Home Visit [facility] Vera Capellan, RN [address] [place] [address] [phone] 09/30/2020 Office Visit Dermatology Apple Kaminski MD [address] [place] [address] [phone] 10/01/2020 Imaging Radiology 11/13/2020 Office Visit Family Medicine Kevin Whiteside DO [address] [place] [address] [phone] 11/27/2020 Office Visit Pulmonary Celsa Tafoya CRNP [address] [place] [address] [phone] 01/08/2021 Office Visit Orthopedics Zack Teague DO [address] [place] [address] [phone] 02/02/2021 Office Visit Cardiology Rey Woodall MD [address] [place] [address] [phone] Health Maintenance Due Date Last Done Comments Zoster Vaccines (3 of 3) 01/02/2020 11/07/2019, 11/24 Pneumococcal Vaccine: 65+ Years (1 of 1 - PPSV23) 2020 08/22/2009, 06/15/2006 BREAST CANCER SCREENING DISCUSSION YEARLY AGES 40-75 07/10/2020 07/10/2019, 06/23/2018, 05/09/2015, Additional history exists DIABETES-HGBA1C EVERY 6 MONTHS 07/24/2020 01/23/2020, 11/07/2019, 08/09/2019, Additional history exists CKD GFR USE SMARTSET 96042 11/06/202005/06, 03/13/2020, 03/07/2020, Additional history exists DIABETES-FOOT EXAM 11/07/2020 11/07/2019, 0 01/01/2019, 12/29/2017, Additional history exists CKD PHOS USE SMARTSET 69076 12/23/202011/26, 11/07/2019, 12/29/2017, Additional history exists DIABETES-URINE MICROALBUMIN EVERY 12 MONTHS 12/23/2020 12/24/2019, 11/30/2019, 05/24/2019, Additional history exists Yearly B-12 01/22/2021 01/23/2020, 02/24, 05/16/2018 DIABETES-EYE EXAM 04/07/2021 04/07/2020, , 02/24/2010 (Done elsewhere), Additional history exists CKD HGB USE SMARTSET 49650 05/06/202105/06, 03/13/2020, 11/30/2019, Additional history exists *DEPRESSION [...] Hospital discharge follow-up- Primary Other follow-up examination Pain in mouth Other and unspecified diseases of the oral soft tissues HTN, goal below 130/80 Unspecified essential hypertension Type 2 diabetes mellitus with hemoglobin A1c goal of 7.0%-8.0% (HCC) Chronic respiratory failure with hypoxia (HCC) Chronic respiratory failure Controlled substance agreement signed Encounter for long-term (current) use of other medications Morbid obesity with BMI of 50.0-59.9, adult (HCC) Morbid obesity Mild episode of recurrent major depressive disorder (HCC) documented in this encounter Advance Directives Documents on File Type Date Recorded Patient Health And Wellness Instructor Expl 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
--- OUTSIDE RECORDS SUMMARY | 2023-06-01 05:18 | External Medical Summary | Summary of Care ---
Author Name Unknown Organization [place] [address] Care Team Providers Care Parts Sales Associate Name Role Phone Kevin Whiteside DO Primary Care Provider Reason for Visit * Reason Onset Date Comments FYI 07/10/2020 Encounter Details Date Type Department Care Team Description 07/10/2020 Telephone Family Practice [facility] [address] [place] [address] Kevin Whiteside DO [address] [facility] [place] [id number] FYI Allergies Active Allergy Reactions Severity Noted [...] 7.0%-8.0% ([facility]) TAKE ONE CAPSULE BY MOUTH THREE TIMES [...] diabetes clinic 81 mL 3 07/01/2020 Active documented as of this encounter (statuses [...] 10/14/2014 Overview: ICD-10 update of inactive term M[place] filter in place 08/19/2014 History of pulmonary [...] encounter Miscellaneous Notes * Telephone Encounter - Mikayla Griffin PHARM Tech - 07/10/2020 10:05 AM EDT Pt calling to check on status of NovoLOG FlexPen 100 UNIT/ML Subcutaneous Solution Pen-injector (insulin aspart). Noted: Pt just wanted to make sure there was no DUP request sent to [facility]. Pt using [facility]. I have informed Pt script was sent to [facility]. Caller can be reached at Patient Phone Numbers . Thank You, Mikayla Griffin Hr Receptionist Refill Call Center 07/10/2020, 10:05 AM documented in this encounter Plan of Treatment Upcoming Encounters Date Type Specialty Care Team Description 07/24/2020 Home Visit [facility] Kindra Hooper CRNP [address] [facility] [place] [address] [phone] 07/28/2020 Hospital Encounter Surgery Cousins, Raj Callum, DO [address] [place] [address] [phone] 07/28/2020 Surgery Surgery Raj Ahn Callum, DO [address] [place], [place] [address] [phone] INJECTION SACROILIAC JOINT 07/28/2020 Office Visit Family Medicine Kevin Whiteside, DO [address] [place] [address] [phone] 07/29/2020 Telemedicine Pulmonary Celsa Tafoya CRNP [address] [place] [address] [phone] 07/30/2020 Home Visit [facility] Vera Capellan RN [address] [place] [address] [phone] 08/06/2020 [address] [facility] [address] [place] [address] 08/07/2020 Home Visit Family Medicine Magaly Morales, Community Health Delivery Recruiter [address] [place] [address] [phone] 08/08/2020 Home Visit [facility] Rema Real LSW [address] [place] [address] [phone] 08/25/2020 Office Visit Nephrology Erik Lenz MD [address] [place] [address] [phone] 08/28/2020 Home Visit [facility] Vera Capellan, RN [address] [place] [address] [phone] 09/30/2020 Office Visit Dermatology Apple Kaminski MD [address] [place] [address] [phone] 10/01/2020 Imaging Radiology 11/13/2020 Office Visit Family Medicine Kevin Whiteside, DO [address] [place] [address] 11/27/2020 Office Visit Pulmonary Celsa Tafoya CRNP [address] [place] [address] 01/08/2021 Office Visit Orthopedics Zack Teague, DO [address] [place] [address] 02/02/2021 [...] Additional history exists CKD GFR USE SMARTSET 31307 11/06/202005/06, 03/13/2020, 03/07/2020, Additional history exists DIABETES-FOOT EXAM 11/07/2020 11/07/2019, 0 01/01/2019, 12/29/2017, Additional history exists CKD PHOS USE SMARTSET 94209 12/23/2020 03/, 11/07/2019, 12/29/2017, Additional history exists DIABETES-URINE MICROALBUMIN EVERY 12 MONTHS 12/23/2020 12/24/2019, 11/30/2019, 05/24/2019, Additional history exists Yearly B-12 01/22/2021 01/23/2020, 02/24, 05/16/2018 DIABETES-EYE EXAM 04/07/2021 04/07/2020, , 02/24/2010 (Done elsewhere), Additional history exists CKD HGB USE SMARTSET 45111 05/06/202105/06, 03/13/2020, 11/30/2019, Additional history exists *DEPRESSION [...] Documents on File Type Date Recorded Patient Piano Case And Bench Assembler Expl 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
--- OUTSIDE RECORDS SUMMARY | 2023-06-01 05:18 | External Medical Summary | Summary of Care ---
Author Name Unknown Organization [place] [address] Care Team Providers Care District [address] Justice Name Role Phone Stevo Kevin Ocampomelinda Primary Care Provider Encounter Details Date Type Department Care Team Description 07/24/2020 Home Visit [facility], [facility] [address] [facility] [place] [address] Kindra Hooper CRNP [address] [place] [address] [phone] Hypomagnesemia*; Gastroesophageal reflux disease with esophagitis without hemorrhage; Mild episode of recurrent major depressive disorder (HCC); Chronic diastolic congestive heart failure (HCC); Urinary tract infection without hematuria, site unspecified; Atypical pneumonia Allergies Active Allergy Reactions Severity Noted Date [...] 50.0 to 59.9 in adult ([facility]),Hypoxemia,ELISSA (obstructive sleep apnea),HTN, goal below 140/80 Take 0.5 Tabs by mouth 2 times a day. 90 Tab 3 03/13/2020 Active DIURETIC TITRATION PLANIndications:Chr onic diastolic congestive heart failure ([facility]) If no improvement on day 3, contact [...] A1c goal of 7.0%-8.0% ([facility]) TAKE ONE CAPSULE BY MOUTH THREE TIMES [...] type 2 nursing care encounter ([facility]),Uncontrolled type 2 diabetes mellitus with stage 3 chronic kidney disease, with long-term current use of insulin ([facility]) inject 1.5mg (one pen) under the skin once weekly 6 mL 1 05/27/2020 Active furosemide (LASIX) 40 MG TabletIndications:C hronic diastolic congestive heart failure ([facility]) Take 2 Tabs by mouth daily. 180 Tab 3 05/28/2020 Active Additional Information Patient taking differently: 40 mg Oral BID, Reported on 06/13/2020 colchicine 0.6 MG TabletIndications:L eukocytoclastic vasculitis ([facility]) Take 1/2 tab daily 45 Tab 1 [...] mouth daily. 1 Tab 0 07/24/2020 Active Magnesium Oxide 400 (241.3 mg) Tablet Take 400 mg by mouth daily. 90 Tab 3 12/18/2019 0 Discontinue d(Refill) HYDROcodone-Acetami nophen 10-325 MG Oral TabletIndications:L umbar radiculopathy Take 1 Tab by mouth every 8 hours as needed for Pain, Breakthrough. 9 Tab 0 07/15/2020 0 Discontinue d(Medicatio n List Clean Up) documented as of this [...] Sign Reading Time Taken Comments Blood Pressure 110/68 07/24/2020 12:02 PM EDT Pulse 82 07/24/2020 12:02 PM EDT Temperature 36.3 C (97.3 F) 07/24/2020 12:02 PM E DT Respiratory Rate 18 07/24/2020 12:02 PM EDT Oxygen Saturation 94% 07/24/2020 12:02 PM EDT Inhaled Oxygen Concentration - - Weight - - Height - - Body Mass Index - - documented in this encounter Progress Notes * Kindra Hooper CRNP - 07/23/2020 12:46 PM EDT [facility] Provider Visit Date: 07/24/2020 Time: 12pm HPI: Stephanie Camp is a 65 year old female seen in her home for a provider visit, ROSA #1. Recently admitted to [facility] for UTI, atypical pneumonia, acute on chronic resp failure with hypoxia, ELSIE, hypokalemia, hypomagnesemia, dizziness. Dizziness felt to be secondary to infection, medication and hypotension. Head CT showed no acute intracranial abnormality. Influenza and COVID screen negative. Cr level back to baseline on discharge.Electrolytes replaced. Discharged home on doxy, cefuroxime and vitamin D. Reports that she is feeling better since discharged. Antibiotics are upsetting her stomach a little, causing heartburn with reflux. Denies any chest pain, can feel the reflux in her throat. She takesit with milk and that makes it better. She is constipated today. Takes tramadol daily for fibromyalgia. Taken off of Hydrocodone/APAP due to drowsiness. Getting back injection with Dr. Ahn on Tuesday. BS have been "okay". Reports A1C in the hospital was 7.3. Used to have insulin pump and reports that its not well controlled since she doesn't have it. She checks BS 3-4 times/day with meals and prior to bed. BS have been ranging high 100s to low 200s. ROS: Review of Systems Constitutional: Negative for appetite change, chills and fever. HENT: Negative for congestion and sore throat. Respiratory: Negative for cough and shortness of breath. Cardiovascular: Positive for leg swelling (Mild, better today). Negative for chest pain. Gastrointestinal: Positive for constipation. Negative for abdominal pain, blood in stool, diarrhea,nausea and vomiting. Heartburn from antbiotics Genitourinary: Negative for dysuria, frequency and hematuria. Skin: Negative for rash and wound. Neurological: Negative for dizziness and light-headedness. Psychiatric/Behavioral: Positive for dysphoric mood (Mildly depressed due in COVID). Physical Exam: BP 110/68 | Pulse 82 | Temp 36.3 C (97.3 F) | Resp 18 | LMP 03/11/2003 | SpO2 94% Physical Exam Constitutional: Appearance: Normal appearance. She is obese. Cardiovascular: Rate and Rhythm: Normal rate and regular rhythm. Pulmonary: Effort: Pulmonary effort is normal. Breath sounds: Normal breath sounds. Abdominal: General: Bowel sounds are normal. Palpations: Abdomen is soft. Tenderness: There is no abdominal tenderness. Musculoskeletal: Right lower leg: No edema. Left lower leg: No edema. Comments: Compression stockings in place Skin: General: Skin is warm and dry. Neurological: Mental Status: She is alert and oriented to person, place, and time. Psychiatric: Mood and Affect: Mood normal. Behavior: Behavior normal. Assessment/Plan: 1. Hypomagnesemia -- Low Mag in hospital. Pt does not have this in her home, recommend she restart at this time. New RX sent to pharmacy. - Magnesium Oxide 400 (241.3 Mg) MG Oral Tablet; Take 400 mg by mouth daily. Dispense: 90 Tab; Refill: 0 2. Gastroesophageal reflux disease with esophagitis without hemorrhage -- Continue Omeprazole as prescribed. 3. Mild episode of recurrent major depressive disorder (HCC) -- Continue Cymbalta 90mg daily, Notriptyline at bed 4. Chronic diastolic congestive heart failure (HCC) -- Continue Lasix as prescribed. 5. Urinary tract infection without hematuria, site unspecified -- Continue Cefuroxime as prescribed 6. Atypical pneumonia -- Finish course of doxy as prescribed. Home Interventions Provided: Reinforced current Plan of Care, including self-management and medication regimen TATIANA Olsen documented in this encounter Plan of Treatment Upcoming Encounters Date Type Specialty Care Team Description 07/28/2020 Hospital Encounter Surgery Cousins, Raj Nolen, DO [address] [place] [address] [phone] 07/28/2020 Surgery Surgery CousinRaj travis, DO [address] [place] [address] [phone] INJECTION SACROILIAC JOINT 07/28/2020 Office Visit Family Medicine Kevin Whiteside, DO [address] [place] [address] [phone] 07/29/2020 Telemedicine Pulmonary Celsa Tafoya CRNP [address] [place] [address] [phone] 07/30/2020 Home Visit [facility] Vera Capellan, RN [address] [place] [address] [phone] 08/06/2020 Office Visit Pharmacy [facility] [address] [place] [address] 08/07/2020 Home Visit Family Medicine Magaly Morales, Community [facility] Senior User Experience Architect [address] [place] [address] [phone] 08/08/2020 Home Visit [facility] Rema Real LSW [address] [facility] [place] [address] [phone] 08/25/2020 Office Visit Nephrology Erik Lenz MD [address] [place] [address] [phone] 08/28/2020 Home Visit [facility] Vera Capellan RN [address] [place] [address] [phone] 09/30/2020 Office Visit Dermatology Apple Kaminski MD [address] [place] [address] [phone] 10/01/2020 Imaging Radiology 11/13/2020 Office Visit Family Medicine Kevin Whiteside, DO [address] [place] [address] [phone] 11/27/2020 Office Visit Pulmonary Celsa Tafoya CRNP [address] [place] [address] 01/08/2021 Office Visit Orthopedics Zack Teague, [address] [place] [address] 02/02/2021 Office [...] Additional history exists CKD GFR USE SMARTSET 11433 11/06/202005/06, 03/13/2020, 03/07/2020, Additional history exists DIABETES-FOOT EXAM 11/07/2020 11/07/2019, 0 01/01/2019, 12/29/2017, Additional history exists CKD PHOS USE SMARTSET 67268 12/23/2020 03/, 11/07/2019, 12/29/2017, Additional history exists DIABETES-URINE MICROALBUMIN EVERY 12 MONTHS 12/23/2020 12/24/2019, 11/30/2019, 05/24/2019, Additional history exists Yearly B-12 01/22/2021 01/23/2020, 02/24, 05/16/2018 DIABETES-EYE EXAM 04/07/2021 04/07/2020, , 02/24/2010 (Done elsewhere), Additional history exists CKD HGB USE SMARTSET 60876 05/06/202105/06, 03/13/2020, 11/30/2019, Additional history exists *DEPRESSION [...] as of this encounter Visit Diagnoses Diagnosis Hypomagnesemia- Primary Disorders of magnesium metabolism Gastroesophageal reflux disease with esophagitis without hemorrhage Mild episode of recurrent major depressive disorder (HCC) Chronic diastolic congestive heart failure (HCC) Chronic diastolic heart failure Urinary tract infection without hematuria, site unspecified Atypical pneumonia Pneumonia, organism unspecified Inflammation of sacroiliac joint (HCC) Sacroiliitis, not elsewhere classified documented in this encounter Advance Directives Documents on File Type Date Recorded Patient Offset Press Assistant Expl 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
--- OUTSIDE RECORDS SUMMARY | 2023-06-01 05:19 | External Medical Summary | Summary of Care ---
Author Name Unknown Organization [place] [address] Care Team Providers Care [place] Man Name Role Phone Kevin Whitesidemelinda Primary Care Provider Reason for Visit * Reason Comments Back Pain * Evaluate & Treat - Unlimited Visits (Within 10 days (routine)) Status Reason Specialty Diagnoses / Procedures Referred By Contact Referred To Contact Authorized Specialty Services Required Pain Management Diagnoses Lumbar radiculopathy Amadou Galeana MD [address] [facility] [place] [address] Encounter Details Date Type Department Care Team Description 07/16/2020 Office Visit [facility], [facility] [address] [employer] [place] [address] Raj Ahn DO [address] [employer] [place] [address] [phone] Sacroiliitis (HCC)*; Spinal stenosis of lumbar region with neurogenic claudication Allergies Active Allergy Reactions Severity Noted Date Comments Codeine 07/08/2014 hallucination Pollen 05/18/2019 Heparin 09/04/2009 Heparin Induced Thrombocytopenia Empagliflozin Other (Please comment) Medium 05/17/2018 3 yeast infections in 6 weeks after starting Morphine And Related 09/16/1997 Hallucinations Tetanus Toxoid Other (Please comment) 06/15/2011 Passed out documented as of this encounter (statuses as of 07/16/2020) Medications Medication Sig Dispensed Refills Start Date [...] goal below 130/80,Acute diastolic congestive heart failure ([facility]),Body mass index (BMI) of 50.0 to 59.9 in adult ([facility]),Hypoxemia,ELISSA (obstructive sleep apnea),HTN, goal below 140/80 Take 0.5 Tabs by mouth 2 times a day. 90 Tab 3 03/13/2020 Active DIURETIC TITRATION PLANIndications:Chron ic diastolic congestive heart failure ([facility]) If no improvement on day 3, [...] hemoglobin A1c goal of 7.0%-8.0% ([facility]) TAKE ONE CAPSULE BY MOUTH THREE TIMES DAILY 270 Cap 0 05/20/2020 Active Additional Information Patient taking differently: 300 mg Oral BID, Reported on 06/05/2020 Blood Glucose Monitoring Suppl (ONETOUCH ULTRA 2) [...] as of this encounter (statuses as of 07/16/2020) Active Problems Problem Noted Date Spinal stenosis [...] 10/14/2014 Overview: ICD-10 update of inactive term Girard filter in place 08/19/2014 History of pulmonary embolus (PE) 2013 Statin intolerance 07/16/2014 HTN, goal below 130/80 02/22/2014 Venous insufficiency 02/07/2013 ELISSA (obstructive sleep apnea) 09/16/2011 Overview: CPAP 11 cwp Mild, AHI 11.3 but with significant nocturnal hypoxemia Dicks Postsurgical hypothyroidism 06/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 documented as of this encounter (statuses as of 07/16/2020) Resolved Problems Problem Noted Date Resolved Date [...] as of this encounter (statuses as of 07/16/2020) Immunizations Name Administration Dates Next Due Pneumococcal [...] Pressure - - Pulse - - Temperature 36.6 C (97.9 F) 07/16/2020 12:28 PM E DT Respiratory Rate - - Oxygen Saturation - - Inhaled Oxygen Concentration - - Weight - - Height - - Body Mass Index - - documented in this encounter Progress Notes * Cousins, Raj Nolen, DO - 07/16/2020 12:40 PM EDT Name: Stephanie Camp Date: 07/16/2020 HPI: Stephanie Camp is a 65 year old female seen in the pain management clinic for re-evaluation afterI last saw her about 2 months ago. That time she had low back and lower extremity radicular pain which did improve with caudal epidural steroid injection given in April. She did have some short-termelevation of blood glucose for a day or to. She states she felt a lot better up until about a week ago when she had at if again to increase of pain although much more isolated the area the right SI joint. She has some vague aching into her legs but not the same radicular symptoms she experience previously. There is no trauma. She was given a small amount of hydrocodone by her primary care physicia n. There is no bowel bladder dysfunction or noticeable motor weakness in lower extremities. History: Past Medical History: Diagnosis Date ELSIE (acute kidney injury) ([facility]) 06/12/2018 Allergic rhinitis due to other allergen Backache Diverticulosis of colon 01/28/06 DM type 2, not at goal ([facility]) ELLIE (generalized anxiety disorder) 09/13/[address] in [address] 08/19/2014 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[facility] [...] (RECTUM) 02/18/2016 normal, repeat 10 yrs/[facility] COLONOSCOPY, GI REFERRAL OP 01/28/06 diverticulosis--repeat 10 years INCISION OF [place], PLANNED 06/03/2011 TRACHEOSTOMY PLANNED performed by DANNY HOLDER at OR [facility] INJECT DX/THER SUBSTANCE INTERLAMINAR LUMBAR/SACRAL W IMAGE GUIDE 05/26/2020 INJECTION SPINE LUMBAR OR SACRAL performed by Raj Ahn DO at OR [facility] KNEE ARTHROSCOPY/DEBRIDEMENT 07/[address] PERMANENT GASTROSTOMY TUBE 09/06/09 GASTROSTOMY WITH CONSTUCTION GASTRIC TUBE performed by AMADOU NUNEZ at OR [facility] REMOVAL OF THYROID GLAND 06/15/2011 THYROIDECTOMY INCLUDING SUBSTERNAL THYROID CERVICAL APPROACH performed by DANNY HOLDER at OR [facility] REMOVE GALLBLADDER 09/06/09 CHOLECYSTECTOMY performed by AMADOU NUNEZ at OR [facility] REPAIR RECURRENT INCISIONAL HERNIA 1998 REVISION OF COLOSTOMY, SIMPLE 1998 SUTURE, LARGE INTESTINE W/COLOSTOMY 1996 perforation R colon with colostomy VENA CAVA FILTER/LIGATION/CLIP 08/19/09 Girard filter placement through the right femoral 08/19/[address] Lerma [address] [facility] Current Outpatient Medications Medication Sig Dispense Refill clonazePAM 0.5 MG Oral Tablet (KlonoPIN) TAKE ONE TABLET BY MOUTH TWICE DAILY 60 Tab 0 HYDROcodone-Acetaminophen 10-325 MG Oral Tablet Take 1 Tab by mouth every 8 hours as needed forPain, Breakthrough. 9 Tab 0 buPROPion HCl ER (XL) 150 [...] needed for Pain, Severe. 90 Tab 0 Tresiba FlexTouch 100 UNIT/ML Subcutaneous [...] taking differently: Take 300 mg by mouth 2 times a day.) 270 Cap 0 DULoxetine (CYMBALTA) 30 MG CPEP Take [...] BREAKFAST OR OTHER MEDS 90 Tab 3 Magnesium Oxide 400 (241.3 mg) Tablet Take 400 mg by mouth daily. 90 Tab 3 Nortriptyline HCl (PAMELOR) 50 [...] for flares. 30 g 1 Glucose Blood (Send the TrendTOUCH ULTRA BLUE) STRP Check sugars 3-4 times daily, E11.9 400 Strip 3 Blood Glucose Monitoring Suppl (Send the TrendTOUCH ULTRA 2) w/Device KIT Use to test [...] contact heart failure managing provider. 1 Each0 metolazone (ZAROXOLYN) 2.5 MG Tablet Take as directed by physician 5 Tab 0 ACCU-CHEK SOFTCLIX LANCETS MISC Test blood sugar three or four times daily as directed 400 Each 3 oxygen GAS 2 LPM bled through CPAP 11 cwp during all periods of sleep and 2 LPM via NC with exertion. cyclobenzaprine (FLEXERIL) 10 MG Tablet TAKE ONE TABLET BY MOUTH AT BEDTIME NEEDED FOR MUSCLE SPASM 90 Tab 2 ONETOUCH DELICA LANCETS 33G MISC Check blood sugars 3-4 times daily 180 Each 5 Review of patient's allergies indicates: Allergen Reactions Jardiance [Empagliflozin] Other (Please comment) 3 yeast infections in 6 weeks after starting Codeine hallucination Hay Fever [Pollen] Heparin Heparin Induced Thrombocytopenia Morphine And Related Hallucinations Tetanus Toxoid Other (Please comment) Passed out Social History Tobacco Use Smoking Status Former Smoker Packs/day: 1.00 Years: 15.00 Pack years: 15.00 Quit date: 08/26/1997 Years since quittin.9 Smokeless Tobacco Never Used History Alcohol Use Not Currently Comment: rare ROS CONSTITUTIONAL: Denies anorexia, weight loss, fever, night sweats RESPIRATORY: Denies shortness of breath, wheezing, productive cough CARDIOVASCULAR: Denies chest pains, irregular heartbeat HEME: Denies easy bruising , anti-coagulation therapy ROS EXAM: Remainder of ROS negative as discussed above in the HPI PHYSICAL EXAM: Temp 36.6 C (97.9 F) | LMP 03/11/2003 She can stand ambulate with use of wheeled walker. She has +5/5 motor function lower extremities. There are no gross sensory deficits noted. She does have tenderness right SI joint with positive Ernesto's. ASSESSMENT: Right sacroiliitis Moderate lumbar spinal stenosis Osteoarthritis right knee RECOMMENDATION: Her symptoms seem to be more isolated in the right sacroiliac joint now and we could potentially pursue injection of the joint in use of more limited amount of corticosteroid the to avoid excessive hyperglycemia. The procedural risks including bleeding, infection, neural injury, worsening pain or steroid side effects were reviewed and accepted. She would like to proceed will be scheduled pending insurance approval. Raj Ahn DO 07/16/2020 12:41 PM documented in this encounter Nursing Notes * Telma Sandoval LPN - 07/16/2020 12:30 PM EDT Patient reports low back and occ b/l lower ext pain that flared up approx 5days ago No new imaging or PT Using Hydrocodone prn documented in this encounter Plan of Treatment Upcoming Encounters Date Type Specialty Care Team Description 07/17/2020 Home Visit [facility] [place] Vera Capellan RN [address] [facility] [place] [address] [phone] 07/29/2020 Telemedicine Pulmonary Celsa Tafoya CRNP [address] [facility] [place] [address] [phone] 08/06/[address] [facility] [place] [address] [facility] [place] [address] 08/07/2020 Home Visit Family Medicine Magaly Morales, Community [facility] Physical Security Engineer [address] [place] [address] 08/08/2020 [facility] Visit [facility] Rema Real LSW [address] [facility] [place] [address] [phone] 08/22/2020 Office Visit Nephrology Gia White MD [address] [facility] [place] [address] [phone] 09/30/2020 Office Visit Dermatology Apple Kaminski MD [address] [place] [address] [phone] 10/01/2020 Imaging Radiology 11/13/2020 Office Visit Family Medicine Kevin Whiteside, DO [address] [place] [address] [phone] 11/27/2020 Office Visit Pulmonary Celsa Tafoya CRNP [address] [place] [address] 01/08/2021 Office Visit Orthopedics Zack Teague, [address] [place] [address] 02/02/2021 Office Visit Cardiology Rey Woodall MD [address] [place] [id number] Scheduled Orders Name Type Priority Associated Diagnoses Orde r Schedule SACROILIAC JOINT INJECT W/GUIDANCE Procedures Routine Sacroiliitis (HCC) Ordered: 07/16/2020 Health Maintenance Due Date Last Done Comments Zoster Vaccines (3 of 3) 01/02/2020 11/07/2019, 11/24 Pneumococcal Vaccine: 65+ Years (1 of 1 - PPSV23) 2020 08/22/2009, 06/15/2006 BREAST CANCER SCREENING DISCUSSION YEARLY AGES 40-75 07/10/2020 07/10/2019, 06/23/2018, 05/09/2015, Additional history exists DIABETES-HGBA1C EVERY 6 MONTHS 07/24/2020 01/23/2020, 11/07/2019, 08/09/2019, Additional history exists CKD GFR USE SMARTSET 61897 11/06/202005/06, 03/13/2020, 03/07/2020, Additional history exists DIABETES-FOOT EXAM 11/07/2020 11/07/2019, 0 01/01/2019, 12/29/2017, Additional history exists CKD PHOS USE SMARTSET 81506 12/23/2020 03/3 , 11/07/2019, 12/29/2017, Additional history exists DIABETES-URINE MICROALBUMIN EVERY 12 MONTHS 12/23/2020 12/24/2019, 11/30/2019, 05/24/2019, Additional history exists Yearly B-12 01/22/2021 01/23/2020, 02/24, 05/16/2018 DIABETES-EYE EXAM 04/07/2021 04/07/2020, , 02/24/2010 (Done elsewhere), Additional history exists CKD HGB USE SMARTSET 19792 05/06/202105/06, 03/13/2020, 11/30/2019, Additional history exists Influenza [...] Documents on File Type Date Recorded Patient Pulp House Supervisor Expl 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
--- OUTSIDE RECORDS SUMMARY | 2023-06-01 05:19 | External Medical Summary | Summary of Care ---
Author Name Unknown Organization [place] [address] Care Team Providers Care Business Systems Developer Name Role Phone Kevin Whiteside DO Primary Care Provider Reason for Visit * Reason Onset Date Comments Follow Up Medication Administration 06/13/2020 Flu an d/or Pneumo Inj Encounter Details Date Type Department Care Team Description 06/13/2020 Office Visit Cardiology, [facility] [address] [place] [address] Marjorie Powell PA-C [address] [facility] [place] [address] Chronic diastolic congestive heart failure (HCC)*; Need for prophylactic vaccination and inoculation against influenza; 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, NYHA class 1 and CKD stage 3 (HCC); HTN, goal below 130/80; ELISSA (obstructive sleep apnea) Allergies Active Allergy Reactions Severity Noted Date Comments Codeine 07/08/2014 hallucination Pollen 05/18/2019 Heparin 09/04/2009 Heparin Induced Thrombocytopenia Empagliflozin Other (Please comment) Medium 05/17/2018 3 yeast infections in 6 weeks after starting Morphine And Related 09/16/1997 Hallucinations Tetanus Toxoid Other (Please comment) 06/15/2011 Passed out documented as of this encounter (statuses as of 07/13/2020) Medications Medication Sig Dispensed Refills Start Date End Date Status docusate sodium (STOOL SOFTENER) 100 MG Capsule Take 100 mg by mouth 2 times a day as needed for Constipation. 0 Active cyclobenzaprine (FLEXERIL) 10 MG Tablet TAKE ONE TABLET BY MOUTH AT BEDTIME NEEDED FOR MUSCLE SPASM 90 Tab 2 8 Active ONETOUCH DELICA LANCETS 33G MISC Check [...] (BMI) of 50.0 to 59.9 in adult ([facility]),Hypoxemia,OS A (obstructive sleep apnea),HTN, goal below 140/80 [...] of 7.0%-8.0% ([facility]) TAKE ONE CAPSULE BY [...] for flares. 30 g 1 0 Active clonazePAM (KLONOPIN) 0.5 MG TabletIndications: Anxiety state TAKE ONE TABLET BY MOUTH TWICE DAILY 60 Tab 0 0 Active Insulin Pen Needle (BD PEN NEEDLE SHORT U/F) 31G X 8 MM Use 5 times daily with insulin 200 Box Dosing Unit 11 9 020 Discontinued(Re fill) insulin aspart (NOVOLOG) 100 UNIT/ML SOPN Inject 25 Units under the skin three times a day with meals. 5 Pre-filled Pen Syringe Dosing Unit 1 0 020 Discontinued insulin aspart (INSULIN ASPART) 100 UNIT/ML injection USE IN INSULIN PUMP UP TO 200 UNITS PER DAY 90 mL 3 0 020 Discontinued insulin aspart (INSULIN ASPART) 100 UNIT/ML injection NOVOLOG Vial- USE IN INSULIN PUMP UP TO 200 UNITS PER DAY 10 mL 0 0 020 Discontinued insulin aspart (NOVOLOG) 100 UNIT/ML injection use in insulin pump up to 200 units per day as directed 30 mL 5 0 020 Discontinued traMADol (ULTRAM) 50 MG TabletIndications: Chronic pain syndrome Take 1 Tab by mouth every 8 hours as needed for Pain, Severe. 90 Tab 0 0 020 Discontinued(Re fill) documented as of this encounter (statuses as of 07/13/2020) Active Problems Problem Noted Date Primary osteoarthritis of left knee 10/28 Chronic [...] 11.3 but with significant nocturnal hypoxemia Dicks Nocturnal hypoxemia 07/22/2011 Overview: Nocturnal ox 2 LPM 07/20/11 -- mean 84%, low 76%, time <89% 6:21 hours, TINY 47 DHC Postsurgical hypothyroidism 06/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 documented as of this encounter (statuses as of 07/13/2020) Resolved Problems Problem Noted Date Resolved Date [...] 05/15/2012 4 Overview: Per HTN Protocol #27. Nontoxic uninodular goiter 06/16/201108/17 Body mass index [...] as of this encounter (statuses as of 07/13/2020) Immunizations Name Administration Dates Next Due Pneumococcal [...] AM EDT documented as of this encounter Last Filed Vital Signs Vital Sign Reading Time Taken Comments Blood Pressure 116/68 06/13/2020 11:48 AM EDT Pulse 84 06/13/2020 11:48 AM EDT Temperature 36.1 C (97 F) 06/13/2020 11:48 AM EDT Respiratory Rate 16 06/13/2020 11:48 AM EDT Oxygen Saturation - - Inhaled Oxygen Concentration - - Weight 149.9 kg (330 lb 8 oz) 06/13/2020 11:48 A M EDT Height - - Body Mass Index 56.73 05/26/2020 9:15 AM EDT documented in this encounter Patient Instructions * Patient Instructions* Teddy Mccrary RN - 06/13/2020 12:16 PM EDT ~~PATIENT INSTRUCTIONS FOR FLU SHOT~~ [...] documented in this encounter Progress Notes * Teddy Mccrary RN - 06/13/2020 12:16 PM EDT PRE - ADMINISTRATION DOCUMENTATION Are you allergic to latex? No Are you experiencing any cold symptoms or fever? No Have you had Guillain-[place] Syndrome (an illness that causes paralysis) within the last 6 weeks? No Have you had the flu shot in the past? YES Have you ever had a reaction to the flu shot? No Teddy Mccrary RN, 06/13/2020 12:16 PM Immunization Administration Documentation Time Out Procedure Performed: Yes Patient Identified (Ask Name/Date of ): Yes Does the patient have a fever greater than 101 degrees today? No Patient allergic to latex? No VFC Stock: No Immunization(s) verified: Yes, Immunization Name: Flu, VIS Sheet(s) given: Yes Verified Side and Site: Yes Verified Shot(s) with Parent(s)/Patient: Yes * Marjorie Powell PA-C - 06/13/2020 11:50 AM EDT Cardiology F/U: SUBJECTIVE: Stephanie Camp is a 65 year old female who presents today for routine cardiology f/u.Last clinic eval approx [address] Woodall. History includes: 1.Morbid obesity. 2.Obstructive sleep apnea on CPAP supplementation with nocturnal hypoxia on oxygen administration. 3.Hypertension. 4.Type 2 diabetes mellitus. 5.Chronic fibromyalgia. 6.History of bilateral pneumonia with extensive hospitalization in 2008 requiring extended intubation, Hill filter implantation with pulmonary embolus. 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 8. Chronic diastolic heart failure multiple factorial etiology 9. Chronic renal insufficiency Patient presents today feeling well. Denies acute complaints. Weighing herself. Fairly stable. No recent metolazone use. Uses extra furosemide PRN, several times per month with improvement. No chest pain, shortness of breath, palpitations, dizziness, syncope or near syncope. No orthopnea,PND, or increased lower extremity edema. No fever, chills, cough, hematochezia, melena, or hemoptysis. Review of Systems: See HPI for pertinent positives. All other 10 point review of systems is negative. Patient Active Problem List Diagnosis Code Dyslipidemia E78.5 ELLIE (generalized anxiety disorder) F41.1 Postsurgical hypothyroidism E89.0 Nocturnal hypoxemia G47.34 ELISSA (obstructive sleep apnea) G47.33 Venous insufficiency I87.2 HTN, goal below 130/80 I10 History of pulmonary embolus (PE) Z86.711 Statin intolerance Z78.[address] Z95.828 Type 2 diabetes mellitus with hemoglobin A1c goal of 7.0%-8.0% ([facility]) E11.9 Fibromyalgia M79.7 Abnormality of gait R26.9 Restless legs syndrome G25.81 Gastroesophageal reflux disease with esophagitis K21.0 Body mass index (BMI) of 50.0 to 59.9 in adult ([facility]) Z68.43 Controlled substance agreement signed Z79.899 Chronic diastolic congestive heart failure ([facility]) I50.32 Mild episode of recurrent major depressive disorder ([facility]) F33.0 Lumbar radiculopathy M54.16 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, NYHA class 1 and CKD stage 3 ([facility]) I13.0, I50.30, N18.3 Chronic respiratory failure with hypoxia ([facility]) J96.11 Hyperparathyroidism, secondary renal ([facility]) N25.81 Vasculitis ([facility]) I77.6 Primary osteoarthritis of left knee M17.12 Uncontrolled type 2 diabetes mellitus with stage 4 chronic kidney disease, with long-term current use of insulin ([facility]) E11.22, E11.65, N18.4, Z79.4 Review of patient's allergies indicates: Allergen Reactions Jardiance [Empagliflozin] Other (Please comment) 3 yeast infections in 6 weeks after starting Codeine hallucination Hay Fever [Pollen] Heparin Heparin Induced Thrombocytopenia Morphine And Related Hallucinations Tetanus Toxoid Other (Please comment) Passed out Current Outpatient Medications Medication Sig Dispense Refill clonazePAM (KLONOPIN) 0.5 MG Tablet TAKE ONE TABLET BY MOUTH TWICE DAILY 60 Tab 0 clobetasol propionate (TEMOVATE) 0.05 % [...] once weekly 6 mL 1 Glucose Blood (CityPocketsTOUCH ULTRA BLUE) STRP Check sugars 3-4 times daily, E11.9 400 Strip 3 Blood Glucose Monitoring Suppl (ONETOUCH ULTRA 2) w/Device KIT Use to test BG values 1 Kit 0 gabapentin (NEURONTIN) 300 MG Capsule TAKE ONE CAPSULE BY MOUTH THREE TIMES DAILY (Patient taking differently: Take 300 mg by mouth 2 times a day.) 270 Cap 0 zoster vac recomb adjuvanted [...] Mild. For abdominal pain 120 Tab 11 traMADol (ULTRAM) 50 MG Tablet Take 1 Tab by mouth every 8 hours as needed for Pain, Severe. 90 Tab0 DIURETIC TITRATION PLAN If no improvement on day 3, contact heart failure managing provider. 1 Each0 insulin aspart (NOVOLOG) 100 UNIT/ML injection use in insulin pump up to 200 units per day as directed 30 mL 5 DULoxetine (CYMBALTA) 30 MG CPEP Take 1 [...] 3 days per week 30 Tab 3 insulin aspart (INSULIN ASPART) 100 UNIT/ML injection NOVOLOG Vial- USE IN INSULIN PUMP UP TO 200 UNITS PER DAY 10 mL 0 ACCU-CHEK SOFTCLIX LANCETS MISC Test blood sugar three or four times daily as directed 400 Each 3 insulin aspart (INSULIN ASPART) 100 UNIT/ML injection USE IN INSULIN PUMP UP TO 200 UNITS PER DAY 90 mL 3 levothyroxine (LEVOXYL) 200 MCG Tablet TAKE [...] and 2 LPM via NC with exertion. insulin aspart (NOVOLOG) 100 UNIT/ML SOPN Inject 25 Units under the skin three times a day with meals. 5 Pre-filled Pen Syringe Dosing Unit 1 Insulin Pen Needle (BD PEN NEEDLE SHORT U/F) 31G X 8 MM Use 5 times daily with insulin 200 Box Dosing Unit 11 cyclobenzaprine (FLEXERIL) 10 MG Tablet TAKE ONE TABLET BY MOUTH AT BEDTIME NEEDED FOR MUSCLE SPASM 90 Tab 2 ONETOUCH DELICA LANCETS [facility] Check blood sugars 3-4 times daily 180 Each 5 docusate sodium (STOOL SOFTENER) 100 MG Capsule Take 100 mg by mouth 2 times a day as needed for Constipation. OBJECTIVE/PHYSICAL EXAMINATION: BP 116/68 (BP Site: Left Arm, BP Position: Sitting, BP Cuff Size: Large) | Pulse 84 | Temp 36.1 C(97 F) | Resp 16 | Wt (!) 149.9 kg (330 lb 8 oz) | LMP 03/11/2003 | BMI 56.73 kg/m | BSA 2.6 m General: no acute distress and stated [...] no joint inflammation, no deforming arthritis Extremities: 2+ edema to above the knees, no cyanosis, pulses intact 2+/4 Neuro: grossly normal exam Data: EKG November 30, 2019 normal sinus rhythm with normal tracing: Assessment: ICD-10-CM 1. Chronic diastolic congestive heart failure (HCC) I50.32 2. Need for prophylactic vaccination and inoculation against influenza Z23 3. 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 HTN, goal below 130/80 I10 5. ELISSA (obstructive sleep apnea) G47.33 PLAN Stable cardiac symptoms. BP controlled. Appears euvolemic. Seasonal flu vaccination provided today. She is to continue current medications as listed above. No changes were made at today's visit. CHF tools discussed including daily weights, salt/sodium/fluid restriction, and use of diuretic protocol. The patient agrees to the above plan and will call with additional questions or concerns. ER with all emergencies advised. Follow-up: Return in about 6 months (around 12/11/2020) Marjorie Powell PA-C Department of Cardiology This chart was completed in part utilizing [employer] Speech Voice Recognition Software. Grammatical errors, random [...] documented in this encounter Nursing Notes * Teddy Mccrary RN - 06/13/2020 11:52 AM EDT Pt being seen in cardiology clinic today for routine 3 month follow up appt. Pt denies chest pain, palpitations and lightheadedness since last appt. BP 116/68 (BP Site: Left Arm, BP Position: Sitting, BP Cuff Size: Large) | Pulse 84 | Temp 36.1 C(97 F) | Resp 16 | Wt (!) 149.9 kg (330 lb 8 oz) | LMP 03/11/2003 | BMI 56.73 kg/m | BSA 2.6 m Ed Hermann RN documented in this encounter Plan of Treatment Upcoming Encounters Date Type Specialty Care Team Description 07/17/2020 Home Visit [facility] Vera Capellan, LEXI [address] [place] [address] [phone] 07/29/2020 Telemedicine Pulmonary Celsa Tafoya CRNP [address] [place] [address] [phone] 08/06/2020 Office Visit [facility]acy [facility] [place] [address] [place] [address] 08/07/2020 Home Visit Family Medicine Brown, Magaly M, Community Health Compensation Director [address] [place] [address] [phone] 08/08/2020 Home Visit [facility] Rema Real LSW [address] [facility] [place] [address] [phone] 08/22/2020 Office Visit Nephrology Gia White MD [address] [facility] [place] [address] [phone] 09/30/2020 Office Visit Dermatology Apple Kaminski MD [address] [place] [address] 10/01/2020 Imaging Radiology 11/13/2020 Office Visit Family Medicine Kevin Whiteside, [address] [facility] [place] [address] [phone] 11/27/2020 Office Visit Pulmonary Celsa Tafoya CRNP [address] [facility] [place] [address] 01/08/2021 Office Visit Orthopedics Zack Teague, [address] [facility] [place] [address] 02/02/2021 Office Visit Cardiology Rey Woodall MD [address] [facility] [place] [id number] Health Maintenance Due Date Last Done Comments Zoster Vaccines (3 of 3) 01/02/2020 11/07/2019, 11/24 Pneumococcal Vaccine: 65+ Years (1 of 1 - PPSV23) 2020 08/22/2009, 06/15/2006 BREAST CANCER SCREENING DISCUSSION YEARLY AGES 40-75 07/10/2020 07/10/2019, 06/23/2018, 05/09/2015, Additional history exists DIABETES-HGBA1C EVERY 6 MONTHS 07/24/2020 01/23/2020, 11/07/2019, 08/09/2019, Additional history exists CKD GFR USE SMARTSET 36662 11/06/202005/06, 03/13/2020, 03/07/2020, Additional history exists DIABETES-FOOT EXAM 11/07/2020 11/07/2019, 0 01/01/2019, 12/29/2017, Additional history exists CKD PHOS USE SMARTSET 99248 12/23/2020 03/, 11/07/2019, 12/29/2017, Additional history exists DIABETES-URINE MICROALBUMIN EVERY 12 MONTHS 12/23/2020 12/24/2019, 11/30/2019, 05/24/2019, Additional history exists Yearly B-12 01/22/2021 01/23/2020, 02/24, 05/16/2018 DIABETES-EYE EXAM 04/07/2021 04/07/2020, , 02/24/2010 (Done elsewhere), Additional history exists CKD HGB USE SMARTSET 72652 05/06/202105/06, 03/13/2020, 11/30/2019, Additional history exists Influenza Vaccine (FLU shot) Completed , 07/23/2019, 06/12/2018, Additional history exists MENINGOCOCCAL (MENACTRA/MENVEO) Aged Out No longer eligible based on patient's age to complete this topic documented as of this encounter Implants Not on filedocumented as of this encounter Visit Diagnoses Diagnosis Chronic diastolic congestive heart failure (HCC)- Primary Chronic diastolic heart failure Need for prophylactic vaccination and inoculation against influenza 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
--- OUTSIDE RECORDS SUMMARY | 2023-06-01 05:19 | External Medical Summary | Summary of Care ---
Author Name Unknown Organization [place] [address] Care Team Providers Care Mobile Ui/Ux Designer Name Role Phone Kevin Whitesidemelinda Primary Care Provider Reason for Visit * Reason Comments [facility]: Maintenance Encounter Details Date Type Department Care Team Description 07/08/2020 [facility] Visit [facility] [address] [facility] [place] [address] Rema Real, [facility] [address] [facility] [place] [address] [phone] Allergies Active Allergy Reactions Severity Noted Date Comments Codeine 07/08/2014 hallucination Pollen 05/18/2019 Heparin 09/04/2009 Heparin Induced Thrombocytopenia Empagliflozin Other (Please comment) Medium 05/17/2018 3 yeast infections in 6 weeks after starting Morphine And Related 09/16/1997 Hallucinations Tetanus Toxoid Other (Please comment) 06/15/2011 Passed out documented as of this encounter (statuses as of 07/08/2020) Medications Medication Sig Dispensed Refills Start Date [...] (BMI) of 50.0 to 59.9 in adult ([facility]),Hypoxemia,ELISSA (obstructive sleep apnea),HTN, goal below 140/80 Take [...] A1c goal of 7.0%-8.0% ([facility]) TAKE ONE CAPSULE BY MOUTH THREE TIMES [...] for flares. 30 g 1 06/03/2020 Active clonazePAM (KLONOPIN) 0.5 MG TabletIndications:Anx iety state TAKE ONE TABLET BY MOUTH TWICE DAILY 60 Tab 0 06/12/2020 Active Tresiba FlexTouch 100 UNIT/ML Subcutaneous Solution [...] as of this encounter (statuses as of 07/08/2020) Active Problems Problem Noted Date Primary osteoarthritis [...] as of this encounter (statuses as of 07/08/2020) Resolved Problems Problem Noted Date Resolved Date [...] as of this encounter (statuses as of 07/08/2020) Immunizations Name Administration Dates Next Due Pneumococcal [...] Progress Notes * Rema Real LSW - 07/08/2020 1:54 PM EDT STEFANY met with Stephanie for supportive and follow up visit. Stephanie shared update in regard to insulin and feels insurance is now covering insulin but did have to transfer to pen rather than pump for coverage. Stephanie shares feelings of depression with recent visit with Dr Andujar who started her on Wellbutrin. She reports depression attributed to not being able to get together with family. 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 STEFANY provided support with empathetic listening and identification of strengths. SW will return in one month. Scheduled on 08/08/2020. Stephanie is planning to get second opinion about knee surgery and exploring this possibility of knee replacement. documented in this encounter Plan of Treatment Upcoming Encounters Date Type Specialty Care Team Description 07/10/2020 Office Visit Orthopedics Sean Burciaga PA-C [address] [facility] [place] [address] [phone] 07/11/2020 Imaging Radiology 07/17/2020 Home Visit [facility] Vera Capellan RN [address] [facility] [place] [address] [phone] 07/29/2020 Telemedicine Pulmonary Celsa Tafoya CRNP [address] [facility] [place] [address] [phone] 08/06/2020 Office Visit Pharmacy [facility] Moe [place] [address] [facility] [place] [address] 08/07/2020 Home Visit Family Medicine Magaly Morales, Community Health Saturator Tender [address] [place] [address] [phone] 08/08/2020 Home Visit [facility] Rema Real LSW [address] [facility] [place] [address] [phone] 08/22/2020 Office Visit Nephrology Gia White MD [address] [place] [address] [phone] 09/30/2020 Office Visit Dermatology Apple Kaminski MD [address] [place] [address] [phone] 11/13/2020 Office Visit Family Medicine Kevin Whiteside DO [address] [facility] [place] [address] [phone] 11/27/2020 Office Visit Pulmonary Celsa Tafoay CRNP [address] [facility] [place] [address] [phone] 02/02/2021 Office Visit Cardiology Rey Woodall MD [address] [place] [address] [phone] Health Maintenance Due Date Last Done Comments Zoster Vaccines (3 of 3) 01/02/2020 11/07/2019, 11/24 Pneumococcal Vaccine: 65+ Years (1 of 1 - PPSV23) 2020 08/22/2009, 06/15/2006 BREAST CANCER SCREENING DISCUSSION YEARLY AGES 40-75 07/10/2020 07/10/2019, 06/23/2018, 05/09/2015, Additional history exists DIABETES-HGBA1C EVERY 6 MONTHS 07/24/2020 01/23/2020, 11/07/2019, 08/09/2019, Additional history exists CKD GFR USE SMARTSET 68156 11/06/202005/06, 03/13/2020, 03/07/2020, Additional history exists DIABETES-FOOT EXAM 11/07/2020 11/07/2019, 0 01/01/2019, 12/29/2017, Additional history exists CKD PHOS USE SMARTSET 49199 12/23/2020 03/, 11/07/2019, 12/29/2017, Additional history exists DIABETES-URINE MICROALBUMIN EVERY 12 MONTHS 12/23/2020 12/24/2019, 11/30/2019, 05/24/2019, Additional history exists Yearly B-12 01/22/2021 01/23/2020, 02/24, 05/16/2018 DIABETES-EYE EXAM 04/07/2021 04/07/2020, , 02/24/2010 (Done elsewhere), Additional history exists CKD HGB USE SMARTSET 46970 05/06/202105/06, 03/13/2020, 11/30/2019, Additional history exists Influenza Vaccine (FLU shot) Completed , 07/23/2019, 06/12/2018, Additional history exists MENINGOCOCCAL (MENACTRA/MENVEO) Aged Out No longer eligible based on patient's age to complete this topic documented as of this encounter Implants Not on filedocumented as of this encounter Advance Directives Documents on File Type Date Recorded Patient Rug Dry Room Attendant Expl 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
--- OUTSIDE RECORDS SUMMARY | 2023-06-01 05:19 | External Medical Summary | Summary of Care ---
Author Name Unknown Organization [place] [address] Care Team Providers Care Mortgage Sales Manager Name Role Phone Migue Whiteside DO Primary Care Provider Reason for Visit * Reason Comments eRx-Medication Refill Encounter Details Date Type Department Care Team Description 07/14/2020 Refill Family Practice [facility] [address] [place] [address] Migue Whiteside DO [address] [facility] [place] [address] [phone] Anxiety state Allergies Active Allergy Reactions Severity [...] 50.0 to 59.9 in adult ([facility]),Hypoxemia,ELISSA (obstructive sleep apnea),HTN, goal below 140/80 Take [...] A1c goal of 7.0%-8.0% ([facility]) TAKE ONE CAPSULE BY MOUTH THREE TIMES DAILY 270 Cap 0 0 Active Additional Information Patient taking differently: 300 mg Oral BID, Reported on 06/05/2020 Blood Glucose Monitoring Suppl (Elixir MedicalTOUCH ULTRA 2) w/Device KIT Use to test [...] TWICE DAILY 60 Tab 0 0 Active clonazePAM (KLONOPIN) 0.5 MG TabletIndications:A nxiety state TAKE ONE TABLET BY MOUTH TWICE DAILY 60 Tab 0 0 07/16/20 20 Discontinued documented as of this encounter [...] Telephone Encounter - Migue Whiteside DO - 07/16/2020 7:24 AM EDT Signed Prescriptions: Disp Refills clonazePAM 0.5 MG Oral Tablet (KlonoPIN) 60 Tab 0 Sig: TAKE ONE TABLET BY MOUTH TWICE DAILY Authorizing Provider: MIGUE WHITESIDE * Telephone Encounter - Callum Zuñiga [facility] - 07/15/2020 4:54 PM EDT Pending Prescriptions: Disp Refills clonazePAM 0.5 MG Oral Tablet [Pharmacy Me*60 Tab 0 Sig: TAKE ONE TABLET BY MOUTH TWICE DAILY * Telephone Encounter - Callum Zuñiga [facility] - 07/15/2020 4:54 PM EDT I have reviewed the patients controlled substance dispensing history in the Prescription Drug Monitoring Program in compliance with the [facility] regulations before prescribing a controlled substance. PDMP checked on 07/15/2020. Pending Prescriptions: Disp Refills clonazePAM 0.5 MG Oral Tablet [Pharmacy Me*60 Tab 0 Sig: TAKE ONE TABLET BY MOUTH TWICE DAILY Last Office/Telemedicine Visit: 07/01/2020 Next Office Visit: 11/13/2020 Scheduled Provider(s): Migue Whiteside DO Date medication was last filled: 06/12/20 Date medication is due for refill: 07/11/20 Pharmacy: [id number] Is this request for a controlled [...] Results Review. Please approve if appropriate. Thanks, Antione Sepulveda.Ph. Clinical Pharmacist Telepharmacy [phone] 07/15/2020,4:54 PM documented in this encounter Plan of Treatment Upcoming Encounters Date Type Specialty Care Team Description 07/16/2020 Office Visit Pain Management Raj Ahn, [address] [facility] [place] [address] 07/17/2020 Home Visit [facility] Vera Capellan RN 132 [facility] [place] [address] [phone] 07/29/2020 Telemedicine Pulmonary Celsa Tafoya CRNP [address] [facility] [place] [address] [phone] 08/06/2020 Office Visit Pharmacy Danuta Ordaz [address] [facility] [place] [address] 08/07/2020 Home Visit Family Medicine Magaly Morales, Community [facility] Correctional Medicine Physician [address] [place] [address] 08/08/2020 Home Visit [facility] Rema Real LSW [address] [facility] [place] [address] [phone] 08/22/2020 Office Visit Nephrology Gia White MD [address] [facility] [place] [address] [phone] 09/30/2020 Office Visit Dermatology Apple Kaminski MD [address] [place] [address] [phone] 10/01/2020 Imaging Radiology 11/13/2020 Office Visit Family Medicine Migue Whiteside, DO [address] [place] [address] [phone] 11/27/2020 Office Visit Pulmonary Celsa Tafoya CRNP [address] [place] [address] 01/08/2021 Office Visit Orthopedics Zack Teague, DO [address] [place] [address] 02/02/2021 Office Visit Cardiology Rey [place] MD [address] [place] [id number] Health Maintenance Due Date Last Done Comments Zoster Vaccines (3 of 3) 01/02/2020 11/07/2019, 11/24 Pneumococcal Vaccine: 65+ Years (1 of 1 - PPSV23) 2020 08/22/2009, 06/15/2006 BREAST CANCER SCREENING DISCUSSION YEARLY AGES 40-75 07/10/2020 07/10/2019, 06/23/2018, 05/09/2015, Additional history exists DIABETES-HGBA1C EVERY 6 MONTHS 07/24/2020 01/23/2020, 11/07/2019, 08/09/2019, Additional history exists CKD GFR USE SMARTSET 88860 11/06/202005/06, 03/13/2020, 03/07/2020, Additional history exists DIABETES-FOOT EXAM 11/07/2020 11/07/2019, 0 01/01/2019, 12/29/2017, Additional history exists CKD PHOS USE SMARTSET 35188 12/23/2020 03/3 , 11/07/2019, 12/29/2017, Additional history exists DIABETES-URINE MICROALBUMIN EVERY 12 MONTHS 12/23/2020 12/24/2019, 11/30/2019, 05/24/2019, Additional history exists Yearly B-12 01/22/2021 01/23/2020, 02/24, 05/16/2018 DIABETES-EYE EXAM 04/07/2021 04/07/2020, , 02/24/2010 (Done elsewhere), Additional history exists CKD HGB USE SMARTSET 62820 05/06/202105/06, 03/13/2020, 11/30/2019, Additional history exists Influenza [...] Documents on File Type Date Recorded Patient Longitudinal Float Operator Expl 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
--- OUTSIDE RECORDS SUMMARY | 2023-06-01 05:19 | External Medical Summary | Summary of Care ---
Author Name Unknown Organization [place] [address] Care Team Providers Care Stock House Worker Name Role Phone Kevin Whiteside DO Primary Care Provider Reason for Visit * Reason Comments Follow Up Pt having difficulty getting insulin covered by insurance Encounter Details Date Type Department Care Team Description 07/01/2020 Office Visit Family [facility] [address] [place] [address] Kevin Whiteside DO [address] [facility] [place] [address] [phone] Type 2 diabetes mellitus with hemoglobin A1c goal of 7.0%-8.0% ([facility])*; Chronic pain syndrome; Mild episode of recurrent major depressive disorder (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); Morbid obesity with BMI of 50.0-59.9, adult ([facility]); Body mass index (BMI) of 50.0 to 59.9 in adult ([facility]) Allergies Active Allergy Reactions Severity Noted Date Comments Codeine 07/08/2014 hallucination Pollen 05/18/2019 Heparin 09/04/2009 Heparin Induced Thrombocytopenia Empagliflozin Other (Please comment) Medium 05/17/2018 3 yeast infections in 6 weeks after starting Morphine And Related 09/16/1997 Hallucinations Tetanus Toxoid Other (Please comment) 06/15/2011 Passed out documented as of this encounter (statuses as of 07/01/2020) Medications Medication Sig Dispensed Refills Start Date [...] (BMI) of 50.0 to 59.9 in adult ([facility]),Hypoxemia,ELISSA (obstructive sleep apnea),HTN, goal below [...] 1 06/03/2020 Active clonazePAM (KLONOPIN) 0.5 MG TabletIndications:A nxiety [...] diabetes clinic 81 mL 3 07/01/2020 Active traMADol (ULTRAM) 50 MG TabletIndications:C hronic pain syndrome Take 1 Tab by mouth every 8 hours as needed for Pain, Severe. 90 Tab 0 05/06/2020 0 Discontinue d(Refill) NovoLOG FlexPen 100 UNIT/ML Subcutaneous Solution Pen-injector (insulin aspart) Inject up to 30 units with meals plus sliding scale as directed by diabetes clinic 81 mL 3 06/25/2020 0 Discontinue d(Refill) documented as of this encounter (statuses as of 07/01/2020) Active Problems Problem Noted Date Primary osteoarthritis [...] as of this encounter (statuses as of 07/01/2020) Resolved Problems Problem Noted Date Resolved Date [...] as of this encounter (statuses as of 07/01/2020) Immunizations Name Administration Dates Next Due Pneumococcal [...] Sign Reading Time Taken Comments Blood Pressure 152/80 07/01/2020 12:50 PM EDT Pulse 98 07/01/2020 12:50 PM EDT Temperature - - Respiratory Rate - - Oxygen Saturation 95% 07/01/2020 12:50 PM EDT RA Inhaled Oxygen Concentration - - Weight - - Height - - Body Mass Index - - documented in this encounter Progress Notes * Kevin Whiteside, DO - 07/01/2020 12:38 PM EDT Nursing Notes: Izabela Crump LPN 07/01/20 1251 Signed The patient has been properly identified by confirmation of name and date of . Chief Complaint Patient presents with Follow Up Pt having difficulty getting insulin covered by insurance ASSESSMENT/PLAN 1. Chronic pain syndrome - traMADol HCl 50 MG Oral Tablet (ULTRAM); Take 1 Tab by mouth every 8 hours as needed for Pain, Severe. Dispense: 90 Tab; Refill: 0 2. Type 2 diabetes mellitus with hemoglobin A1c goal of 7.0%-8.0% ([facility]) Need to move back to meal time dosing and needs new RX Needs financial assistance as she believes she is falling in the donut hole Will need ongoing management to find cost effective solution for her Could consider RELION brand insulin? - NovoLOG FlexPen 100 UNIT/ML Subcutaneous Solution Pen-injector (insulin aspart); Inject up to 30 units with meals plus sliding scale as directed by diabetes clinic Dispense: 81 mL; Refill: 3 3. Mild episode of recurrent major depressive disorder ([facility]) Will add wellbutrin Educated and will titrate up if able to - buPROPion HCl ER (XL) 150 MG Oral Tablet Extended Release 24 Hour (Wellbutrin XL); Take 1 Tab by mouth daily. Dispense: 30 Tab; Refill: 5 4. 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) Stable, continue cards f/u 5. Morbid obesity with BMI of 50.0-59.9, adult ([facility]) Provided education 6. Body mass index (BMI) of 50.0 to 59.9 in adult ([facility]) As above HPI: Stephanie Camp is a 65 year old female who presents with chief complaint of ongoing pain andworsening depression. No SI/HI. Having financial issues with covering her pump insulin so was takenoff of that and moved back to novolog. Having trouble paying for the novolog. Feeling overwhelmed ROS: See HPI for positives and negatives. Patient denies additional complaints. EXAM: BP 152/80 | Pulse 98 | LMP 03/11/2003 | SpO2 95% Comment: RA GENERAL: alert, healthy, no distress, well nourished and well developed HEAD: Normocephalic, atraumatic EYES: PERRL, EOMI, Conjunctiva are pink and non-injected, sclera clear EARS: Canals normal, TM clear with good cone of light, no erythema, no fluid NOSE: no turbinate hypertrophy, no discharge, no erythema OROPHARYNX: no exudate, no erythema, lips, buccal mucosa, and tongue normal and mucous membranes are moist NECK: supple, no adenopathy HEART: regular rate & rhythm, no murmurs and no gallops LUNGS: clear to auscultation bilaterally, no wheezing, rales or rhonchi MSK/SKIN:poor strength and difficult gait due to weight and pain PAST MEDICAL HISTORY: Patient Active Problem List [...] G25.81 Gastroesophageal reflux disease with esophagitis K21.00 Body mass index (BMI) of 50.0 to 59.9 in adult ([facility]) Z68.43 Controlled substance agreement signed Z79.899 Chronic diastolic congestive heart failure ([facility]) I50.32 Mild episode of recurrent major depressive disorder (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) I13.0, I50.30, N18.30 Chronic respiratory failure with hypoxia ([facility]) J96.11 Hyperparathyroidism, secondary renal (HCC) N25.81 Vasculitis (HCC) I77.6 Primary osteoarthritis of left knee M17.12 Past Surgical History: Procedure Laterality Date ARTHROPLASTY KNEE TOTAL Right 07/24/14 R COLONOSCOPY, DIAGNOSTIC (RECTUM) 02/18/2016 normal, repeat 10 yrs/[facility] COLONOSCOPY, GI REFERRAL OP 01/28/06 diverticulosis--repeat 10 years INCISION OF WINDPIPE, PLANNED 06/03/2011 TRACHEOSTOMY PLANNED performed by DANNY HOLDER at OR [facility] INJECT DX/THER SUBSTANCE INTERLAMINAR LUMBAR/SACRAL W IMAGE GUIDE 05/26/2020 INJECTION SPINE LUMBAR OR SACRAL performed by Raj Ahn DO at OR [facility] KNEE ARTHROSCOPY/DEBRIDEMENT 07/[address] PERMANENT GASTROSTOMY TUBE 09/06/09 GASTROSTOMY WITH CONSTUCTION GASTRIC TUBE performed by AMADOU NUNEZ at OR [facility] REMOVAL OF THYROID GLAND 06/15/2011 THYROIDECTOMY INCLUDING SUBSTERNAL THYROID CERVICAL APPROACH performed by DANNY HOLDRE at OR [facility] REMOVE GALLBLADDER 09/06/09 CHOLECYSTECTOMY performed by AMADOU NUNEZ at OR [facility] REPAIR RECURRENT INCISIONAL HERNIA 1998 REVISION OF COLOSTOMY, SIMPLE 1998 SUTURE, LARGE INTESTINE W/COLOSTOMY 1996 perforation R colon with colostomy VENA CAVA FILTER/LIGATION/CLIP 08/19/09 Frank filter placement through the right femoral 08/19/[address] [facility] Review of patient's allergies indicates: Allergen [...] under the skin daily. 45 mL 3 clonazePAM (KLONOPIN) 0.5 MG Tablet TAKE ONE [...] once weekly 6 mL 1 Glucose Blood (SparksUCH ULTRA BLUE) STRP Check sugars 3-4 times daily, E11.9 400 Strip 3 Blood Glucose Monitoring Suppl (SparksUCH ULTRA 2) w/Device KIT Use to test BG values 1 Kit 0 gabapentin (NEURONTIN) 300 MG Capsule TAKE ONE CAPSULE BY MOUTH THREE TIMES DAILY (Patient taking differently: Take 300 mg by mouth 2 times a day.) 270 Cap 0 dicyclomine (BENTYL) 20 MG [...] times a day as needed for Constipation. zoster vac recomb adjuvanted (SHINGRIX) 50 MCG/0.5ML injection Inject 0.5 mL into a large muscle now and repeat dose in 60 to 180 days. Please fax date this was given to our office. (pt already had 1st done in 10/2019 1 Each 0 Kevin Whiteside DO Family Practice [address] [address] documented in this encounter Nursing Notes * Izabela Crump LPN - 07/01/2020 12:50 PM EDT The patient has been properly identified by confirmation of name and date of . Chief Complaint Patient presents with Follow Up Pt having difficulty getting insulin covered by insurance documented in this encounter Plan of Treatment Upcoming Encounters Date Type Specialty Care Team Description 07/07/2020 Rigging Loft Mechanic [facility] Rema Real, TUBE WORKER [address] [place] [address] [phone] 07/08/2020 Home Visit [facility] Rema Real LSW [address] [place] [address] [phone] 07/10/2020 Office Visit Orthopedics Sean Burciaga PA-C [address] [place] [address] [phone] 07/11/2020 Imaging Radiology 07/17/2020 Home Visit [facility] Vera Capellan RN [address] [place] [address] [phone] 07/29/2020 Telemedicine Pulmonary Celsa Tafoya CRNP [address] [place] [address] [phone] 08/06/2020 Office Visit Pharmacy Ordaz [facility] [address] [place] [address] 08/07/2020 Home Visit Family Medicine Magaly Morales, Community [facility] Kindergarten Instructional Assistant [address] [place], [place] [id number] 08/22/2020 Office Visit Nephrology Gia White MD [address] [place] [address] [phone] 09/30/2020 Office Visit Dermatology Apple Kaminski MD [address] [place] [address] [phone] 11/13/2020 Office Visit Family Medicine Kevin Whiteside DO [address] [place] [address] [phone] 11/27/2020 Office Visit Pulmonary Celsa Tafoya CRNP [address] [place] [address] [phone] 02/02/2021 Office Visit Cardiology Rey Woodall MD [address] [place] [address] [phone] Health Maintenance Due Date Last Done Comments Zoster Vaccines (3 of 3) 01/02/2020 11/07/2019, 11/24 Pneumococcal Vaccine: 65+ Years (1 of 1 - PPSV23) 2020 08/22/2009, 06/15/2006 BREAST CANCER SCREENING DISCUSSION YEARLY AGES 40-75 07/10/2020 07/10/2019, 06/23/2018, 05/09/2015, Additional history exists DIABETES-HGBA1C EVERY 6 MONTHS 07/24/2020 01/23/2020, 11/07/2019, 08/09/2019, Additional history exists CKD GFR USE SMARTSET 98426 11/06/202005/06, 03/13/2020, 03/07/2020, Additional history exists DIABETES-FOOT EXAM 11/07/2020 11/07/2019, 0 01/01/2019, 12/29/2017, Additional history exists CKD PHOS USE SMARTSET 13448 12/23/202011/26, 11/07/2019, 12/29/2017, Additional history exists DIABETES-URINE MICROALBUMIN EVERY 12 MONTHS 12/23/2020 12/24/2019, 11/30/2019, 05/24/2019, Additional history exists Yearly B-12 01/22/2021 01/23/2020, 02/24, 05/16/2018 DIABETES-EYE EXAM 04/07/2021 04/07/2020, , 02/24/2010 (Done elsewhere), Additional history exists CKD HGB USE SMARTSET 07412 05/06/202105/06, 03/13/2020, 11/30/2019, Additional history exists Influenza Vaccine (FLU shot) Completed , 07/23/2019, 06/12/2018, Additional history exists MENINGOCOCCAL (MENACTRA/MENVEO) Aged Out No longer eligible based on patient's age to complete this topic documented as of this encounter Implants Not on filedocumented as of this encounter Visit Diagnoses Diagnosis Type 2 diabetes mellitus with hemoglobin A1c goal of 7.0%-8.0% ([facility])- Primary Chronic pain syndrome Mild episode of recurrent major depressive disorder (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) Morbid obesity with BMI of 50.0-59.9, adult ([facility]) Morbid obesity Body mass index (BMI) of 50.0 to 59.9 in adult ([facility]) documented in this encounter Advance Directives Documents on File Type Date Recorded Patient Rn Plastics Expl 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
--- OUTSIDE RECORDS SUMMARY | 2023-06-01 05:19 | External Medical Summary | Summary of Care ---
Author Name Unknown Organization [place] [address] Care Team Providers Care Cutter And Paster Press Clippings Name Role Phone Whiteside Kevin Ocampomelinda Primary Care Provider Reason for Visit * Reason Onset Date Comments Hyperglycemia 07/04/2020 Encounter Details Date Type Department Care Team Description 07/04/2020 Telephone Pharmacy, [facility] [address] [facility] [address] [facility] [place] [address] Hyperglycemia Allergies Active Allergy Reactions Severity Noted Date Comments Codeine 07/08/2014 hallucination Pollen 05/18/2019 Heparin 09/04/2009 Heparin Induced Thrombocytopenia Empagliflozin Other (Please comment) Medium 05/17/2018 3 yeast infections in 6 weeks after starting Morphine And Related 09/16/1997 Hallucinations Tetanus Toxoid Other (Please comment) 06/15/2011 Passed out documented as of this encounter (statuses as of 07/04/2020) Medications Medication Sig Dispensed Refills Start Date [...] (BMI) of 50.0 to 59.9 in adult ([facility]),Hypoxemia,ELISSA (obstructive sleep apnea),HTN, goal below 140/80 Take 0.5 Tabs by mouth 2 times a day. 90 Tab 3 03/13/2020 Active DIURETIC TITRATION PLANIndications:Chron ic diastolic congestive heart failure ([facility]) If no improvement on day 3, contact [...] goal of 7.0%-8.0% ([facility]) TAKE ONE CAPSULE BY MOUTH THREE TIMES DAILY 270 Cap 0 05/20/2020 Active Additional Information Patient taking differently: 300 mg Oral BID, Reported on 06/05/2020 Blood Glucose Monitoring Suppl (Smarter PocketsTOUCH ULTRA 2) w/Device KIT Use to test [...] TabletIndications:Chr onic diastolic congestive heart failure ([facility]) Take 2 Tabs by mouth daily. 180 Tab 3 05/28/2020 Active Additional Information Patient taking differently: 40 mg Oral BID, Reported on 06/13/2020 colchicine 0.6 MG TabletIndications:Jacobo kocytoclastic vasculitis ([facility]) Take 1/2 [...] as of this encounter (statuses as of 07/04/2020) Active Problems Problem Noted Date Primary osteoarthritis [...] 10/14/2014 Overview: ICD-10 update of inactive term Webster filter in place 08/19/2014 History of pulmonary [...] as of this encounter (statuses as of 07/04/2020) Resolved Problems Problem Noted Date Resolved Date [...] as of this encounter (statuses as of 07/04/2020) Immunizations Name Administration Dates Next Due Pneumococcal [...] Telephone Encounter - Rose Barton RPh - 07/04/2020 11:05 AM EDT Patient Phone Numbers Spoke to patient via phone. Patient will add 2 units to every Novolog dose on her sliding scale. Will call with elevated BG if continued. Rose Barton, Pharm D Clinical Pharmacist 07/04/2020, 11:07 AM * Telephone Encounter - Anne Burciaga MA - 07/04/2020 10:47 AM EDT Patient calling stating she is having trouble getting her blood sugar down now that she no longer has her pump, requesting a call back, . documented in this encounter Plan of Treatment Upcoming Encounters Date Type Specialty Care Team Description 07/07/2020 Sustainable Systems Analyst [facility] Rema Real, HVAC LEAD [address] [place] [address] [phone] 07/08/2020 Home Visit [facility] Rema Real, HVAC LEAD [address] [place] [address] [phone] 07/10/2020 Office Visit Orthopedics Sean Burciaga PA-C [address] [place] [address] [phone] 07/11/2020 Imaging Radiology 07/17/2020 Home Visit [facility] Vera Capellan RN [address] [place] [address] [phone] 07/29/2020 Telemedicine Pulmonary [facility] [place] [address] [phone] 08/06/2020 Office Visit Pharmacy [facility] [place] [address] [place] [address] 08/07/2020 Home Visit Family Medicine Magaly Morales, Community Health Baccarat Manager [address] [place] [address] [phone] 08/22/2020 Office Visit Nephrology Gia White MD [address] [facility] [place] [address] [phone] 09/30/2020 Office Visit Dermatology Apple Kaminski MD [address] [place] [address] [phone] 11/13/2020 Office Visit Family Medicine Kevin Whiteside DO [address] [place] [address] [phone] 11/27/2020 Office Visit Pulmonary Celsa Tafoya CRNP [address] [place] [address] [phone] 02/02/2021 Office Visit Cardiology Rey Woodall MD [address] [place] [address] [phone] Health Maintenance Due Date Last Done Comments Zoster Vaccines (3 of 3) 01/02/2020 11/07/2019, 11/24 Pneumococcal Vaccine: 65+ Years (1 of 1 - PPSV23) 2020 08/22/2009, 06/15/2006 BREAST CANCER SCREENING DISCUSSION YEARLY AGES 40-75 07/10/2020 07/10/2019, 06/23/2018, 05/09/2015, Additional history exists DIABETES-HGBA1C EVERY 6 MONTHS 07/24/2020 01/23/2020, 11/07/2019, 08/09/2019, Additional history exists CKD GFR USE SMARTSET 02087 11/06/202005/06, 03/13/2020, 03/07/2020, Additional history exists DIABETES-FOOT EXAM 11/07/2020 11/07/2019, 0 01/01/2019, 12/29/2017, Additional history exists CKD PHOS USE SMARTSET 01369 12/23/2020 03/3 , 11/07/2019, 12/29/2017, Additional history exists DIABETES-URINE MICROALBUMIN EVERY 12 MONTHS 12/23/2020 12/24/2019, 11/30/2019, 05/24/2019, Additional history exists Yearly B-12 01/22/2021 01/23/2020, 02/24, 05/16/2018 DIABETES-EYE EXAM 04/07/2021 04/07/2020, , 02/24/2010 (Done elsewhere), Additional history exists CKD HGB USE SMARTSET 43528 05/06/202105/06, 03/13/2020, 11/30/2019, Additional history exists Influenza Vaccine (FLU shot) Completed , 07/23/2019, 06/12/2018, Additional history exists MENINGOCOCCAL (MENACTRA/MENVEO) Aged Out No longer eligible based on patient's age to complete this topic documented as of this encounter Implants Not on filedocumented as of this encounter Advance Directives Documents on File Type Date Recorded Patient Truck Crane Operator 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
--- OUTSIDE RECORDS SUMMARY | 2023-06-01 05:19 | External Medical Summary | Summary of Care ---
Author Name Unknown Organization [place] [address] Care Team Providers Care Penology Teacher Name Role Phone Kevin Whiteside DO Primary Care Provider Reason for Referral * Evaluate & Treat - Unlimited Visits (Within 10 days (routine)) Status Reason Specialty Diagnoses / Procedures Referred By Contact Referred To Contact Authorized Specialty Services Required Pain Management Diagnoses Lumbar radiculopathy Alvin Galeana MD [address] [facility] [place] [address] Reason for Visit * Reason Comments Acute Right sided back suzie n Encounter Details Date Type Department Care Team Description 07/15/2020 Office Visit Family Practice [facility] [address] [place] [address] Alvin Galeana MD [address] [facility] [place] [address] [phone] Spinal stenosis of lumbar region without neurogenic claudication*; Lumbar radiculopathy; ELLIE (generalized anxiety disorder); Chronic diastolic congestive heart failure (HCC); 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, NYHA class 1 and CKD stage 3 (HCC); ELISSA (obstructive sleep apnea) Allergies Active Allergy Reactions Severity Noted Date Comments Codeine 07/08/2014 hallucination Pollen 05/18/2019 Heparin 09/04/2009 Heparin Induced Thrombocytopenia Empagliflozin Other (Please comment) Medium 05/17/2018 3 yeast infections in 6 weeks after starting Morphine And Related 09/16/1997 Hallucinations Tetanus Toxoid Other (Please comment) 06/15/2011 Passed out documented as of this encounter (statuses as of 07/15/2020) Medications Medication Sig Dispensed Refills Start Date [...] 50.0 to 59.9 in adult ([facility]),Hypoxemia,ELISSA (obstructive sleep apnea),HTN, goal below [...] of 7.0%-8.0% ([facility]) TAKE ONE CAPSULE BY MOUTH THREE TIMES DAILY 270 Cap 0 05/20/2020 Active Additional Information Patient taking differently: 300 mg Oral BID, Reported on 06/05/2020 Blood Glucose Monitoring Suppl (handsomexcutiveTOUCH ULTRA 2) w/Device KIT Use to test BG values 1 Kit 0 05/20/2020 Active Glucose Blood (ONETOUCH ULTRA BLUE) STRP Check sugars 3-4 times daily, E11.9 400 Strip 3 05/22/2020 Active TRULICITY 1.5 MG/0.5ML SOPNIndications:DM type 2 nursing care encounter (HCC),Uncontrolled type 2 diabetes mellitus with stage 3 chronic kidney disease, with long-term current use of insulin ([facility]) inject 1.5mg (one pen) under [...] depressive disorder ([facility]) Take 1 Tab by mouth daily. 30 Tab 5 07/01/2020 Active NovoLOG FlexPen 100 UNIT/ML Subcutaneous Solution Pen-injector (insulin aspart)Indications:Ty pe 2 diabetes mellitus with hemoglobin A1c goal of 7.0%-8.0% ([facility]) Inject up to 30 units with meals plus sliding scale as directed by diabetes clinic 81 mL 3 07/01/2020 Active HYDROcodone-Acetamino phen 10-325 MG Oral TabletIndications:Lum bar radiculopathy Take 1 Tab by mouth every 8 hours as needed for Pain, Breakthrough. 9 Tab 0 07/15/2020 Active documented as of this encounter (statuses as of 07/15/2020) Active Problems Problem Noted Date Spinal stenosis [...] 10/14/2014 Overview: ICD-10 update of inactive term [place] filter in place 08/19/2014 History of pulmonary embolus (PE) 2013 Statin intolerance 07/16/2014 HTN, goal below 130/80 02/22/2014 Venous insufficiency 02/07/2013 ELISSA (obstructive sleep apnea) 09/16/2011 Overview: CPAP 11 cwp Mild, AHI 11.3 but with significant nocturnal hypoxemia Dicks Postsurgical hypothyroidism 06/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 documented as of this encounter (statuses as of 07/15/2020) Resolved Problems Problem Noted Date Resolved Date [...] as of this encounter (statuses as of 07/15/2020) Immunizations Name Administration Dates Next Due Pneumococcal [...] Sign Reading Time Taken Comments Blood Pressure 140/82 07/15/2020 7:39 AM EDT Pulse 88 07/15/2020 7:39 AM EDT Temperature 36.5 C (97.7 F) 07/15/2020 7:39 AM ED T Respiratory Rate - - Oxygen Saturation 93% 07/15/2020 7:39 AM EDT Inhaled Oxygen Concentration - - Weight 150.1 kg (331 lb) 07/15/2020 7:39 AM EDT Height 162.6 cm (5' 4") 07/15/2020 7:39 AM EDT Body Mass Index 56.82 07/15/2020 7:39 AM EDT documented in this encounter Progress Notes * Alvin Galeana MD - 07/15/2020 7:52 AM EDT SUBJECTIVE: Stephanie Camp is a 65 year old female. Chief Complaint Patient presents with Acute Right sided back pain HPI: Here for acute on chronic right sided lower back pain. She has known spinal stenosis and follows intermittently with Dr. Ahn. She is frustrated about having to lose weight in order to qualify forknee surgery. She does use tramadol prn but notes that it is not helping. She has no red flags for cauda equina involvement. Patient Active Problem List Diagnosis Code Dyslipidemia E78.5 ELLIE (generalized anxiety disorder) F41.1 Postsurgical hypothyroidism E89.0 ELISSA (obstructive sleep apnea) G47.33 Venous insufficiency I87.2 HTN, goal below 130/80 I10 History of pulmonary embolus (PE) Z86.711 Statin intolerance Z78.[address] Z95.828 Type 2 diabetes mellitus with hemoglobin A1c goal of 7.0%-8.0% ([facility]) E11.9 Fibromyalgia M79.7 Abnormality of gait R26.9 Restless legs syndrome G25.81 Gastroesophageal reflux disease with esophagitis K21.00 Body mass index (BMI) of 50.0 to 59.9 in adult ([facility]) Z68.43 Controlled substance agreement signed Z79.899 Chronic diastolic congestive heart failure ([facility]) I50.32 Mild episode of recurrent major depressive disorder ([facility]) F33.0 Lumbar radiculopathy M54.16 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 Allergy: Review of patient's allergies indicates: Allergen Reactions Jardiance [Empagliflozin] Other (Please comment) 3 yeast infections in 6 weeks after starting Codeine hallucination Hay Fever [Pollen] Heparin Heparin Induced Thrombocytopenia Morphine And Related Hallucinations Tetanus Toxoid Other (Please comment) Passed out OBJECTIVE: BP 140/82 | Pulse 88 | Temp 36.5 C (97.7 F) | Ht (!) 1.626 m (5' 4") | Wt (!) 150.1 kg (331 lb)| LMP 03/11/2003 | SpO2 93% | BMI 56.82 kg/m | BSA 2.6 m Gen: aao x 3, nad Lungs: ctab Heart: rrr, no mrg ASSESSMENT AND PLAN: (M48.061) Spinal stenosis of lumbar region without neurogenic claudication (primary encounter diagnosis) Plan: re-referral to Dr. 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 No other complaints were offered at this time. Alvin Galeana MD documented in this encounter Plan of Treatment Upcoming Encounters Date Type Specialty Care Team Description 07/16/2020 Office Visit Pain Management Raj Ahn DO [address] [place] [address] 07/17/2020 Home Visit [facility] Vera Capellan RN [address] [place] [address] [phone] 07/29/2020 Telemedicine Pulmonary Celsa Tafoya CRNP 132 [facility] [place] [address] [phone] 08/06/2020 Office Visit Pharmacy [facility] [place] 132 [facility] [place] [address] 08/07/2020 Home Visit Family Medicine Magaly Morales, Community Health Dog And Cat Food Cook [address] [place] [address] [phone] 08/08/2020 Home Visit [facility] Rema Real, ENTERTAINMENT & MEDIA CORRESPONDENT [address] [facility] [place] [address] [phone] 08/22/2020 Office Visit Nephrology Gia White MD [address] [place], [place] [address] 09/30/2020 Office Visit Dermatology Apple Kaminski MD [address] [place] [address] [phone] 10/01/2020 Imaging Radiology 11/13/2020 Office Visit Family Medicine Kevin Whiteside DO [address] [facility] [place] [address] [phone] 11/27/2020 Office Visit Pulmonary Celsa Tafoya CRNP [address] [facility] [place] [address] [phone] 01/08/2021 Office Visit Orthopedics Zack Teague, 132 [facility] [place] [address] [phone] 02/02/2021 Office Visit Cardiology Rey Woodall MD [address] [facility] [place] [address] [phone] Scheduled Referrals Name Type Priority Associated Diagnoses Orde r Schedule PAIN MEDICINE REFERRAL OP Referral Within 10 days (routine) Lumbar radiculopathy Ordered: 07/15/2020 Health Maintenance Due Date Last Done Comments Zoster Vaccines (3 of 3) 01/02/2020 11/07/2019, 11/24 Pneumococcal Vaccine: 65+ Years (1 of 1 - PPSV23) 2020 08/22/2009, 06/15/2006 BREAST CANCER SCREENING DISCUSSION YEARLY AGES 40-75 07/10/2020 07/10/2019, 06/23/2018, 05/09/2015, Additional history exists DIABETES-HGBA1C EVERY 6 MONTHS 07/24/2020 01/23/2020, 11/07/2019, 08/09/2019, Additional history exists CKD GFR USE SMARTSET 94260 11/06/202005/06, 03/13/2020, 03/07/2020, Additional history exists DIABETES-FOOT EXAM 11/07/2020 11/07/2019, 0 01/01/2019, 12/29/2017, Additional history exists CKD PHOS USE SMARTSET 58596 12/23/202011/26, 11/07/2019, 12/29/2017, Additional history exists DIABETES-URINE MICROALBUMIN EVERY 12 MONTHS 12/23/2020 12/24/2019, 11/30/2019, 05/24/2019, Additional history exists Yearly B-12 01/22/2021 01/23/2020, 02/24, 05/16/2018 DIABETES-EYE EXAM 04/07/2021 04/07/2020, , 02/24/2010 (Done elsewhere), Additional history exists CKD HGB USE SMARTSET 60020 05/06/202105/06, 03/13/2020, 11/30/2019, Additional history exists Influenza Vaccine (FLU shot) Completed , 07/23/2019, 06/12/2018, Additional history exists MENINGOCOCCAL (MENACTRA/MENVEO) Aged Out No longer eligible based on patient's age to complete this topic documented as of this encounter Implants Not on filedocumented as of this encounter Visit Diagnoses Diagnosis Spinal stenosis of lumbar region without neurogenic claudication- Primary Spinal stenosis, lumbar region, without neurogenic claudication Lumbar radiculopathy Thoracic or lumbosacral neuritis or radiculitis, unspecified ELLIE (generalized anxiety disorder) Generalized anxiety disorder Chronic diastolic congestive heart failure (HCC) Chronic diastolic heart failure 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
--- OUTSIDE RECORDS SUMMARY | 2023-06-01 05:19 | External Medical Summary | Summary of Care ---
Author Name Unknown Organization [place] [address] Care Team Providers Care Inward Toll Operator Name Role Phone Migue Whiteside DO Primary Care Provider Reason for Visit * Reason Onset Date Comments Medication Refill 06/27/2020 Encounter Details Date Type Department Care Team Description 06/27/2020 Refill [facility] [address] [place] [address] Migue Whiteside DO [address] [facility] [place] [address] [phone] Allergies Active Allergy Reactions Severity Noted Date [...] of 50.0 to 59.9 in adult ([facility]),Hypoxemia,ELISSA (obstructive sleep apnea),HTN, goal below 140/80 Take 0.5 Tabs by mouth 2 times a day. 90 Tab 3 03/13/2020 Active DIURETIC TITRATION PLANIndications:Chr onic diastolic congestive heart failure ([facility]) If no improvement on day 3, [...] MG TabletIndications:C hronic diastolic congestive heart failure ([facility]) Take 2 Tabs by mouth daily. 180 Tab 3 05/28/2020 Active Additional Information Patient taking differently: 40 mg Oral BID, Reported on 06/13/2020 colchicine 0.6 MG TabletIndications:L eukocytoclastic vasculitis ([facility]) Take 1/2 tab daily 45 Tab [...] with insulin 200 Each 11 06/27/2020 Active Insulin Pen Needle (BD PEN NEEDLE SHORT U/F) 31G X 8 MM Use 5 times daily with insulin 200 Box Dosing Unit 11 02/26/2019 06/27/20 20 Discontinu ed(Refill) traMADol (ULTRAM) 50 MG TabletIndications:C hronic pain syndrome Take 1 Tab by mouth every 8 hours as needed for Pain, Severe. 90 Tab 0 05/06/2020 07/01/20 20 Discontinu ed(Refill) NovoLOG FlexPen 100 UNIT/ML Subcutaneous Solution Pen-injector (insulin aspart) Inject up to 30 units with meals plus sliding scale as directed by diabetes clinic 81 mL 3 06/25/2020 07/01/20 20 Discontinu ed(Refill) documented as of this encounter [...] 10/14/2014 Overview: ICD-10 update of inactive term [place] filter in place 08/19/2014 History of [...] Miscellaneous Notes * Telephone Encounter - Rose Chiang RPh - 06/27/2020 3:43 PM EDT Signed Prescriptions: Disp Refills BD Pen Needle Short U/F 31G X 8 MM (Insuli*200 Ea*11 Sig: Use 5 times daily with insulin Authorizing Provider: MIGUE WHITESIDE Ordering User: ROSE CHIANG * Telephone Encounter - Mikayla Griffin PHARM Tech - 06/27/2020 3:30 PM EDT Pending Prescriptions: Disp Refills BD Pen Needle Short U/F 31G X 8 MM (Insul*200 Ea*11 Sig: Use 5 times daily with insulin Last Office/Telemedicine Visit: 05/08/2020 Next Office Visit: 11/13/2020 Scheduled Provider(s): Migue Whiteside, DO If no future appointments scheduled, and last appointment is greater than a year ago, please schedule patient for a follow-up appointment Last date the medication was ordered: 02/26/2019 Pharmacy: [id number] Is this request for a controlled [...] Date Type Specialty Care Team Description 07/07/2020 Documentation Supervisor [facility] Rema Real, SPORT PSYCHOLOGIST [address] [place] [address] [phone] 07/08/2020 Home Visit [facility] Rema Real, SPORT PSYCHOLOGIST [address] [place] [address] [phone] 07/10/2020 Office Visit Orthopedics Sean Burciaga PA-C [address] [place] [address] [phone] 07/11/2020 Imaging Radiology 07/17/2020 Home Visit [facility] Vera Capellan RN [address] [place] [address] [phone] 07/29/2020 Telemedicine Pulmonary Celsa Tafoya CRNP [address] [place] [address] [phone] 08/06/2020 Office Visit Pharmacy [facility] [address] [place] [address] 08/07/2020 Home Visit Family Medicine Magaly Morales, Community Health [place] Line Attendant [address] [place] [address] [phone] 08/22/2020 Office Visit Nephrology Gia White MD 21 [facility] [place] [address] [phone] 09/30/2020 Office Visit Dermatology Apple Kaminski MD [address] [place] [address] [phone] 11/13/2020 Office Visit Family Medicine Migue Whiteside DO [address] [place] [address] [phone] 11/27/2020 Office Visit Pulmonary Celsa Tafoya CRNP [address] [place] [address] [phone] 02/02/2021 Office Visit Cardiology Rey Woodall MD [address] [place] [address] [phone] Health Maintenance Due Date Last Done Comments Zoster Vaccines (3 of 3) 01/02/2020 11/07/2019, 11/24 Pneumococcal Vaccine: 65+ Years (1 of 1 - PPSV23) 2020 08/22/2009, 06/15/2006 BREAST CANCER SCREENING DISCUSSION YEARLY AGES 40-75 07/10/2020 07/10/2019, 06/23/2018, 05/09/2015, Additional history exists DIABETES-HGBA1C EVERY 6 MONTHS 07/24/2020 01/23/2020, 11/07/2019, 08/09/2019, Additional history exists CKD GFR USE SMARTSET 25502 11/06/202005/06, 03/13/2020, 03/07/2020, Additional history exists DIABETES-FOOT EXAM 11/07/2020 11/07/2019, 0 01/01/2019, 12/29/2017, Additional history exists CKD PHOS USE SMARTSET 70015 12/23/202011/26, 11/07/2019, 12/29/2017, Additional history exists DIABETES-URINE MICROALBUMIN EVERY 12 MONTHS 12/23/2020 12/24/2019, 11/30/2019, 05/24/2019, Additional history exists Yearly B-12 01/22/2021 01/23/2020, 02/24, 05/16/2018 DIABETES-EYE EXAM 04/07/2021 04/07/2020, , 02/24/2010 (Done elsewhere), Additional history exists CKD HGB USE SMARTSET 11818 05/06/202105/06, 03/13/2020, 11/30/2019, Additional history exists Influenza Vaccine (FLU shot) Completed , 07/23/2019, 06/12/2018, Additional history exists MENINGOCOCCAL (MENACTRA/MENVEO) Aged Out No longer eligible based on patient's age to complete this topic documented as of this encounter Implants Not on filedocumented as of this encounter Advance Directives Documents on File Type Date Recorded Patient Trampoline Team Coach Expl 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
--- OUTSIDE RECORDS SUMMARY | 2023-06-01 05:19 | External Medical Summary | Summary of Care ---
Author Name Unknown Organization [place] [address] Care Team Providers Care Marble Cleaner Name Role Phone Whiteside Kevin Ocampomelinda Primary Care Provider Reason for Visit * Reason Comments [facility]: Maintenance Encounter Details Date Type Department Care Team Description 07/07/2020 Eight [facility] [address] [facility] [place] [address] Rema Real, [facility] [place] [address] [phone] Allergies Active Allergy Reactions Severity Noted Date Comments Codeine 07/08/2014 hallucination Pollen 05/18/2019 Heparin 09/04/2009 Heparin Induced Thrombocytopenia Empagliflozin Other (Please comment) Medium 05/17/2018 3 yeast infections in 6 weeks after starting Morphine And Related 09/16/1997 Hallucinations Tetanus Toxoid Other (Please comment) 06/15/2011 Passed out documented as of this encounter (statuses as of 07/07/2020) Medications Medication Sig Dispensed Refills Start Date [...] (BMI) of 50.0 to 59.9 in adult ([facility]),Hypoxemia,ELISSA (obstructive sleep apnea),HTN, goal below 140/80 [...] of 7.0%-8.0% ([facility]) TAKE ONE CAPSULE BY MOUTH THREE [...] 2 nursing care encounter ([facility]),Uncontrolled type 2 diabetes mellitus with stage 3 chronic kidney disease, with long-term current use of insulin ([facility]) inject 1.5mg (one pen) under the [...] as of this encounter (statuses as of 07/07/2020) Active Problems Problem Noted Date Primary osteoarthritis [...] 10/14/2014 Overview: ICD-10 update of inactive term [place] filter in place 08/19/2014 History of [...] as of this encounter (statuses as of 07/07/2020) Resolved Problems Problem Noted Date Resolved Date [...] as of this encounter (statuses as of 07/07/2020) Immunizations Name Administration Dates Next Due Pneumococcal [...] as of this encounter Progress Notes * Ream Real LSW - 07/07/2020 1:16 PM EDT Simón called Stephanie for follow up. Confirmed appointment tomorrow afternoon. Also followed up on insulin coverage. She reported she worked with [employer] and [employer] and she was able to arrange orfind out how to ensure coverage of insulin for pen. She does not have coverage to revert back to using pump. Stephanie reports she is satisfied with coverage at this time. SIMÓN will see Stephanie tomorrow. documented in this encounter Plan of Treatment Upcoming Encounters Date Type Specialty Care Team Description 07/08/2020 Home Visit [facility] Rema Real LSW [address] [facility] [place] [address] [phone] 07/10/2020 Office Visit Orthopedics Sean Burciaga PA-C [address] [facility] [place] [address] [phone] 07/11/2020 Imaging Radiology 07/17/2020 Home Visit [facility] at [place] Vera Capellan, RN [address] [facility] [place] [address] [phone] 07/29/2020 Telemedicine Pulmonary Celsa Tafoya CRNP [address] [facility] [place] [address] [phone] 08/06/2020 Office Visit Pharmacy [facility] [address] [facility] [place] [address] 08/07/2020 Home Visit Family Medicine Magaly Morales, [facility] [address] [place] [address] 08/22/2020 Office Visit Nephrology Gia White MD [address] [place] [address] [phone] 09/30/2020 Office Visit Dermatology Apple Kaminski MD [address] [place] [address] [phone] 11/13/2020 Office Visit Family Medicine Kevin Whiteside DO [address] [facility] [place] [address] [phone] 11/27/2020 Office Visit Pulmonary Celsa Tafoya CRNP [address] [facility] [place] [address] [phone] 02/02/2021 Office Visit Cardiology Rey Woodall MD [address] [facility] [place] [address] [phone] Health Maintenance Due Date Last Done Comments Zoster Vaccines (3 of 3) 01/02/2020 11/07/2019, 11/24 Pneumococcal Vaccine: 65+ Years (1 of 1 - PPSV23) 2020 08/22/2009, 06/15/2006 BREAST CANCER SCREENING DISCUSSION YEARLY AGES 40-75 07/10/2020 07/10/2019, 06/23/2018, 05/09/2015, Additional history exists DIABETES-HGBA1C EVERY 6 MONTHS 07/24/2020 01/23/2020, 11/07/2019, 08/09/2019, Additional history exists CKD GFR USE SMARTSET 96158 11/06/202005/06, 03/13/2020, 03/07/2020, Additional history exists DIABETES-FOOT EXAM 11/07/2020 11/07/2019, 0 01/01/2019, 12/29/2017, Additional history exists CKD PHOS USE SMARTSET 25652 12/23/2020/, 11/07/2019, 12/29/2017, Additional history exists DIABETES-URINE MICROALBUMIN EVERY 12 MONTHS 12/23/2020 12/24/2019, 11/30/2019, 05/24/2019, Additional history exists Yearly B-12 01/22/2021 01/23/2020, 02/24, 05/16/2018 DIABETES-EYE EXAM 04/07/2021 04/07/2020, , 02/24/2010 (Done elsewhere), Additional history exists CKD HGB USE SMARTSET 75815 05/06/202105/06, 03/13/2020, 11/30/2019, Additional history exists Influenza Vaccine (FLU shot) Completed , 07/23/2019, 06/12/2018, Additional history exists MENINGOCOCCAL (MENACTRA/MENVEO) Aged Out No longer eligible based on patient's age to complete this topic documented as of this encounter Implants Not on filedocumented as of this encounter Advance Directives Documents on File Type Date Recorded Patient Green Ware Caster Expl 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
--- OUTSIDE RECORDS SUMMARY | 2023-06-01 05:19 | External Medical Summary | Summary of Care ---
Author Name Unknown Organization [place] [address] Care Team Providers Care Barrel Line Operator Name Role Phone Whiteside Kevin Ocampomelinda Primary Care Provider Reason for Visit * Reason Comments [facility]: Maintenance Encounter Details Date Type Department Care Team Description 07/17/2020 Home Visit [facility], [facility] [address] [facility] [place] [address] Vera Capellan RN [address] [facility] [place] [address] [phone] Benign hypertensive heart and kidney disease with [...] as of this encounter (statuses as of 07/17/2020) Medications Medication Sig Dispensed Refills Start Date [...] of 50.0 to 59.9 in adult ([facility]),Hypoxemia,ELISSA (obstructive sleep apnea),HTN, goal below 140/80 Take [...] A1c goal of 7.0%-8.0% ([facility]) TAKE ONE CAPSULE BY MOUTH THREE [...] as of this encounter (statuses as of 07/17/2020) Active Problems Problem Noted Date Spinal stenosis [...] as of this encounter (statuses as of 07/17/2020) Resolved Problems Problem Noted Date Resolved Date [...] as of this encounter (statuses as of 07/17/2020) Immunizations Name Administration Dates Next Due Pneumococcal [...] Sign Reading Time Taken Comments Blood Pressure 118/72 07/17/2020 9:15 AM EDT Pulse 92 07/17/2020 9:15 AM EDT Temperature 36.8 C (98.2 F) 07/17/2020 9:15 AM ED T Respiratory Rate 18 07/17/2020 9:15 AM EDT Oxygen Saturation 94% 07/17/2020 9:15 AM EDT Inhaled Oxygen Concentration - - Weight - - Height - - Body Mass Index - - documented in this encounter Progress Notes * Vera Capellan RN - 07/17/2020 9:00 AM EDT [facility] Stereo Compiler Visit Date: 07/17/2020 Time: 9:06 AM Name: Stephanie Camp : 1955 Current Concerns: Patient seen for return RNCM visit Recently saw Dr. Ahn for low back pain and will be getting injection of SI joint in near future- waiting to hear when it will be scheduled for Has 3 day use of Hydrocodone - will take 1/2 tab before bed usually but states she doesn't take it unless she absolutely needs to Today pain is 7 Also saw ortho recently for knees - not a candidate for surgery d/t obesity Recently started wellbutrin for depression - she feels that it is helping her depression. Checks bsgs tid - have been ranging around the mid 200's. No extreme highs or lows No longer using insulin pump - has been self injecting d/t insurance not covering when using pump Physical Exam: BP 118/72 | Pulse 92 | Temp 36.8 C (98.2 F) | Resp 18 | LMP 03/11/2003 | SpO2 94% Pain 7 Physical Exam Constitutional: General: She is not in acute distress. HENT: Nose: Nose normal. Mouth/Throat: Mouth: Mucous [...] Positive for shortness of breath (AVENDAÑO - baseline). Cardiovascular: Positive for leg swelling. Gastrointestinal: Negative. Endocrine: Negative. Genitourinary: Negative. Musculoskeletal: Positive for arthralgias, back pain and gait problem. Skin: Negative. Psychiatric/Behavioral: Negative. Medication Reconciliation: (See medication list) Does patient take medications as ordered: Yes Patient Well Being: PHQ2/9: @[id number]@ No change in living situation Recently started wellbutrin for depression. Also has SW involved for extra support Frustrated with back pain but denies depression with use of Wellbutrin Denies falls Advanced Care Planning: POLST. Patient's Goals of Care: 1. Left knee surgery 2. Lose wt 3. Get stronger Reinforcement/Education: Educated on home safety: ? Create a [...] self-management and medication regimen Updated Exacerbation Plan Patient's 'Red Flags': 1. Wt gain of 3 lbs in 24 hrs or 5 lbs in one week 2. Increased SOB 3. Increased edema Patient Needs to Remember: Call [facility] at with any new or worsening health concerns or problems, red flag symptoms. Referrals Needed: Other none Follow Up: Patient encouraged to call the intake phone number for all urgent but not emergent issues. Is the patient new to [facility] within the last 30 days? No, Assess appropriateness for upcoming telehealth visits. Cancel telehealth visits & schedule home visit with care rehabilitation team lead(s)as indicated. Provider is in agreement with Plan of Care: Yes Scheduled to follow up with patient in 3 weeks with [facility] and 3 weeks after with RNCM. Vera Capellan RN 07/17/2020 9:06 AM documented in this encounter Plan of Treatment Upcoming Encounters Date Type Specialty Care Team Description 07/29/2020 Telemedicine Pulmonary Celsa Tafoya CRNP [address] [facility] [place] [address] [phone] 08/06/2020 Office Visit [facility] [place] [address] 08/07/2020 Home Visit Family Medicine Magaly Morales, [facility] [address] [place] [address] [phone] 08/08/2020 Home Visit [facility] Rema Real LSW [address] [facility] [place] [address] [phone] 08/22/2020 Office Visit Nephrology Gia White MD [address] [place], [place] [id number] 08/28/2020 Home Visit [facility] Vera Capellan RN [address] [facility] [place] [address] [phone] 09/30/2020 Office Visit Dermatology Apple Kaminski MD [address] [place] [address] [phone] 10/01/2020 Imaging Radiology 11/13/2020 Office Visit Family Medicine Kevin Whiteside DO [address] [facility] [place] [address] [phone] 11/27/2020 Office Visit Pulmonary Celsa Tafoya CRNP [address] [place] [address] [phone] 01/08/2021 Office Visit Orthopedics Zack Teague DO [address] [place] [address] [phone] 02/02/2021 Office Visit Cardiology Rey Woodall MD [address] [place] [address] [phone] Health Maintenance Due Date Last Done Comments Zoster Vaccines (3 of 3) 01/02/2020 11/07/2019, 11/24 Pneumococcal Vaccine: 65+ Years (1 of 1 - PPSV23) 2020 08/22/2009, 06/15/2006 BREAST CANCER SCREENING DISCUSSION YEARLY AGES 40-75 07/10/2020 07/10/2019, 06/23/2018, 05/09/2015, Additional history exists DIABETES-HGBA1C EVERY 6 MONTHS 07/24/2020 01/23/2020, 11/07/2019, 08/09/2019, Additional history exists CKD GFR USE SMARTSET 94248 11/06/202005/06, 03/13/2020, 03/07/2020, Additional history exists DIABETES-FOOT EXAM 11/07/2020 11/07/2019, 0 01/01/2019, 12/29/2017, Additional history exists CKD PHOS USE SMARTSET 62175 12/23/2020 03/, 11/07/2019, 12/29/2017, Additional history exists DIABETES-URINE MICROALBUMIN EVERY 12 MONTHS 12/23/2020 12/24/2019, 11/30/2019, 05/24/2019, Additional history exists Yearly B-12 01/22/2021 01/23/2020, 02/24, 05/16/2018 DIABETES-EYE EXAM 04/07/2021 04/07/2020, , 02/24/2010 (Done elsewhere), Additional history exists CKD HGB USE SMARTSET 18457 05/06/202105/06, 03/13/2020, 11/30/2019, Additional history exists Influenza [...] Documents on File Type Date Recorded Patient Redrying Machine Operator Expl anation Advanced Directive 08/22/2009 [...]
--- OUTSIDE RECORDS SUMMARY | 2023-06-01 05:19 | External Medical Summary | Summary of Care ---
Author Name Unknown Organization [place] [address] Care Team Providers Care Manager Financial Reporting Name Role Phone Stevo Kevin Ocampomelinda Primary Care Provider Reason for Visit * Reason Comments Follow Up left knee surgery sobia lange Encounter Details Date Type Department Care Team Description 07/10/2020 Office Visit Orthopaedics [facility] [address] [place] [address] Sean Burciaga PA-C [address] [place] [address] [phone] Primary osteoarthritis of left knee*; Obesity, morbid (more than 100 lbs over ideal weight or BMI > 40) ([facility]) Allergies Active Allergy Reactions Severity Noted Date Comments Codeine 07/08/2014 hallucination Pollen 05/18/2019 Heparin 09/04/2009 Heparin Induced Thrombocytopenia Empagliflozin Other (Please comment) Medium 05/17/2018 3 yeast infections in 6 weeks after starting Morphine And Related 09/16/1997 Hallucinations Tetanus Toxoid Other (Please comment) 06/15/2011 Passed out documented as of this encounter (statuses as of 07/10/2020) Medications Medication Sig Dispensed Refills Start Date [...] (BMI) of 50.0 to 59.9 in adult ([facility]),Hypoxemia,ELISSA (obstructive sleep apnea),HTN, goal below 140/80 [...] A1c goal of 7.0%-8.0% ([facility]) TAKE ONE CAPSULE BY MOUTH THREE [...] MG/0.5ML SOPNIndications:DM type 2 nursing care encounter ([facility]),Uncontrolled type 2 diabetes mellitus with stage 3 chronic kidney disease, with long-term current use of insulin ([facility]) inject 1.5mg (one pen) under [...] as of this encounter (statuses as of 07/10/2020) Active Problems Problem Noted Date Primary osteoarthritis [...] 10/14/2014 Overview: ICD-10 update of inactive term [place] filter in place 08/19/2014 History of pulmonary [...] as of this encounter (statuses as of 07/10/2020) Resolved Problems Problem Noted Date Resolved Date [...] as of this encounter (statuses as of 07/10/2020) Immunizations Name Administration Dates Next Due Pneumococcal [...] Smokeless Tobacco: Never Used Tobacco Cessation:Counseling Given: No Alcohol Use Drinks/Week oz/Week Comments Not Currently [...] - Pulse - - Temperature 36.6 C (97.8 F) 07/10/2020 10:52 AM E DT Respiratory Rate - - Oxygen Saturation - - Inhaled Oxygen Concentration - - Weight 149 kg (328 lb 8 oz) 07/10/2020 10:52 AM EDT Height 162.6 cm (5' 4") 07/10/2020 10:52 AM EDT Body Mass Index 56.39 07/10/2020 10:52 AM EDT documented in this encounter Progress Notes * Sean Burciaga PA-C - 07/10/2020 11:07 AM EDT ORTHOPAEDIC SURGERY - Clinic Note SUBJECTIVE: Stephanie Camp is a 65 year old female. Chief Complaint Patient presents with Follow Up left knee surgery discuss HPI: Patient returns for left knee osteoarthritis. Unfortunately still with pain on a daily basis. Pain pretty much all through the knee to medial and lateral aspects as well as the anterior aspect. No pain at rest. Has pain with walking. Ambulates with the assistance of a cane secondary to poor balance. She received a corticosteroid injection recently to her spine, says her sugars were driven up into the 300s for a period of time. Voices frustration with her efforts at weight loss, actually gained weight compared to last visit. Review of Systems: Constitutional ROS: No fevers, sweats, or chills Cardiovascular ROS: No chest pain Gastrointestinal ROS: No abdominal pain Musculoskeletal/Extremities ROS: Positive left knee pain as described above Neurologic ROS: Chronic neuropathy both lower extremities Review of patient's allergies indicates: Allergen Reactions [...] Unitsunder the skin daily. 45 mL 3 clonazePAM [...] once weekly 6 mL 1 Glucose Blood (ONETOUCH ULTRA BLUE) STRP Check [...] times daily as directed 400 Each 3 levothyroxine (LEVOXYL) 200 MCG Tablet TAKE [...] times a day as needed for Constipation. Patient Active Problem List Diagnosis Code Dyslipidemia E78.5 ELLIE (generalized anxiety disorder) F41.1 Postsurgical hypothyroidism E89.0 Nocturnal hypoxemia G47.34 ELISSA (obstructive sleep apnea) G47.33 Venous insufficiency I87.2 HTN, goal below 130/80 I10 History of pulmonary embolus (PE) Z86.711 Statin intolerance Z78.[address] Z95.828 Type 2 diabetes mellitus with hemoglobin A1c goal of 7.0%-8.0% ([facility]) E11.9 Fibromyalgia M79.7 Abnormality of gait R26.9 Restless legs syndrome G25.81 Gastroesophageal reflux disease with esophagitis K21.00 Body mass index (BMI) of 50.0 to 59.9 in adult ([facility]) Z68.43 Controlled substance agreement signed Z79.899 Chronic diastolic congestive heart failure ([facility]) I50.32 Mild episode of recurrent major depressive disorder ([facility]) F33.0 Lumbar radiculopathy M54.16 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, NYHA class 1 and CKD stage 3 ([facility]) I13.0, I50.30, N18.30 Chronic respiratory failure with hypoxia ([facility]) J96.11 Hyperparathyroidism, secondary renal ([facility]) N25.81 Vasculitis ([facility]) I77.6 Primary osteoarthritis of left knee M17.12 Past Medical History: Diagnosis Date ELSIE (acute kidney injury) ([facility]) 06/12/2018 Allergic rhinitis due to other [...] COLON -- 1996 Pneumonia in aspergillosis(484.6) 09/14/2009 Spontaneous pneumothorax 09/14/2009 Statin intolerance 07/16/2014 Type [...] PLANNED performed by DANNY HOLDER at OR [facility] INJECT DX/THER SUBSTANCE INTERLAMINAR LUMBAR/SACRAL W IMAGE GUIDE 05/26/2020 INJECTION SPINE LUMBAR OR SACRAL performed by Raj Ahn DO at OR [facility] KNEE ARTHROSCOPY/DEBRIDEMENT 07/[address] PERMANENT GASTROSTOMY TUBE 09/06/09 GASTROSTOMY WITH CONSTUCTION GASTRIC TUBE performed by AMADOU NUNEZ at [facility] REMOVAL OF THYROID GLAND 06/15/2011 THYROIDECTOMY INCLUDING SUBSTERNAL THYROID CERVICAL APPROACH performed by DANNY HOLDER at [facility] REMOVE GALLBLADDER 09/06/09 CHOLECYSTECTOMY performed by AMADOU NUNEZ at [facility] REPAIR RECURRENT INCISIONAL HERNIA 1998 REVISION OF COLOSTOMY, SIMPLE 1998 SUTURE, LARGE INTESTINE W/COLOSTOMY 1996 perforation R colon with colostomy VENA CAVA FILTER/LIGATION/CLIP 08/19/09 [place] filter placement through the right femoral 08/19/[address] Lerma at [facility] Social History Tobacco Use Smoking status: Former Smoker Packs/day: 1.00 Years: 15.00 Pack years: 15.00 Quit date: 08/26/1997 Years since quittin.8 Smokeless tobacco: Never Used Substance Use Topics Alcohol use: Not Currently Comment: rare Drug use: No Vaping/E-Cigarette Use Vaping/E-Cigarette Use Never User Vaping/E-Cigarette Substances Vaping/E-Cigarette Devices Family history: Noncontributory OBJECTIVE: Diagnostic Testing: None today Vital Signs: Temp 36.6 C (97.8 F) (Tympanic) | Ht (!) 1.626 m (5' 4") | Wt (!) 149 kg (328 lb 8 oz) | LMP 03/11/2003 | BMI 56.39 kg/m | BSA 2.59 m Physical Exam: Alert and oriented, no distress, normal affect. Ambulates with the assistance of a cane, slow gait with a limp. BMI 56.39 today. Inspection of the left knee shows no cellulitic changes. She has tenderness circumferentially around the knee but mostly over the medial compartment. She is able to do a straight leg raise and fully extend her knee. Flexion about 105 or so. Calf soft and nontender. Neurovascularly intact left lower extremity. ASSESSMENT: Primary osteoarthritis of left knee (Primary) Obesity, morbid (more than 100 lbs over ideal weight or BMI > 40) ([facility]) Follow Up: Return in about 6 months (around 01/08/2021). PLAN: Left knee osteoarthritis, morbid obesity. BMI 56 today. Had another discussion with her regarding candidacy for joint replacement therapy. Her last hemoglobin A1c was improved, however BMI 56 is too high to proceed. We had a prolonged discussion over weight loss again. Discussed protein intake, stimulating metabolism, muscle stimulation with upper body exercises. Unfortunately she said visiting with checker did not help her at all. Tried to encourage her to do her best over the next few months for weight loss. Viscosupplementation has not helped her in the past. Given her diabetes, not necessarily candidate for corticosteroid injection. She had very high blood sugars after recent spine corticosteroid injection. We will see her back in 6 months for re-evaluation and recheck of weight. She voiced satisfaction with this plan This chart was completed in part utilizing [email or web address] Speech Voice Recognition Software. Grammatical errors, random word insertions, pronoun errors, and incomplete sentences are an occasional consequence of this system due to software limitations, ambient noise, and hardware issues. Any formal questions or concerns about the content, text, or information contained within the body of this dictation should be directly addressed to the provider for clarification. Sean Burciaga PA-C 07/10/2020 11:07 AM documented in this encounter Nursing Notes * Parvin Ritchie LPN - 07/10/2020 10:50 AM EDT Patient presents todayto discuss left total knee replacement. Last injection of Geylsn was . Patient states injections did not help just as bad as it was. Patient states did not do any PT d/t covid-19. A1C is 7.3, weight is 328.5lb documented in this encounter Plan of Treatment Upcoming Encounters Date Type Specialty Care Team Description 07/11/2020 Imaging Radiology 07/17/2020 Home Visit [facility] Vera Capellan, RN [address] [place] [address] [phone] 07/29/2020 Telemedicine Pulmonary Celsa Tafoya CRNP [address] [place] [address] [phone] 08/06/2020 Office Visit Pharmacy Orlin Riailyn [facility] [address] [place] [address] 08/07/2020 Home Visit Family Medicine Magaly Morales, Community Health Professor Of Geography [address] [place] [address] 08/08/2020 Home Visit [facility] Rema Real LSW [address] [place] [address] [phone] 08/22/2020 Office Visit Nephrology Gia White MD [address] [place] [address] [phone] 09/30/2020 Office Visit Dermatology Apple Kaminski MD [address] [place] [address] [phone] 11/13/2020 Office Visit Family Medicine Kevin Whiteside, DO [address] [place] [address] 11/27/2020 Office Visit Pulmonary Celsa Tafoya CRNP [address] [place] [address] 01/08/2021 Office Visit Orthopedics Zack Teague, DO [address] [place] [address] [phone] 02/02/2021 Office Visit Cardiology Rey Woodall MD [...] Additional history exists CKD GFR USE SMARTSET 99725 11/06/202005/06, 03/13/2020, 03/07/2020, Additional history exists DIABETES-FOOT EXAM 11/07/2020 11/07/2019, 0 01/01/2019, 12/29/2017, Additional history exists CKD PHOS USE SMARTSET 38004 12/23/2020/, 11/07/2019, 12/29/2017, Additional history exists DIABETES-URINE MICROALBUMIN EVERY 12 MONTHS 12/23/2020 12/24/2019, 11/30/2019, 05/24/2019, Additional history exists Yearly B-12 01/22/2021 01/23/2020, 02/24, 05/16/2018 DIABETES-EYE EXAM 04/07/2021 04/07/2020, , 02/24/2010 (Done elsewhere), Additional history exists CKD HGB USE SMARTSET 52847 05/06/202105/06, 03/13/2020, 11/30/2019, Additional history exists Influenza Vaccine (FLU shot) Completed , 07/23/2019, 06/12/2018, Additional history exists MENINGOCOCCAL (MENACTRA/MENVEO) Aged Out No longer eligible based on patient's age to complete this topic documented as of this encounter Implants Not on filedocumented as of this encounter Visit Diagnoses Diagnosis Primary osteoarthritis of left knee- Primary Primary localized osteoarthrosis, lower leg Obesity, morbid (more than 100 lbs over ideal weight or BMI > 40) (HCC) Morbid obesity documented in this encounter Advance Directives Documents on File Type Date Recorded 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
--- OUTSIDE RECORDS SUMMARY | 2023-06-01 05:20 | External Medical Summary | Summary of Care ---
Author Name Unknown Organization [place] [address] Care Team Providers Care Door Liner Name Role Phone Kevin Whiteside DO Primary Care Provider Reason for Visit * Reason Onset Date Comments FYI 06/20/2020 Encounter Details Date Type Department Care Team Description 06/20/2020 Telephone Family Practice [facility] [address] [place] [address] Kevin Whiteside DO [address] [facility] [place] [id number] FYI Allergies Active Allergy Reactions Severity Noted Date Comments Codeine 07/08/2014 hallucination Pollen 05/18/2019 Heparin 09/04/2009 Heparin Induced Thrombocytopenia Empagliflozin Other (Please comment) Medium 05/17/2018 3 yeast infections in 6 weeks after starting Morphine And Related 09/16/1997 Hallucinations Tetanus Toxoid Other (Please comment) 06/15/2011 Passed out documented as of this encounter (statuses as of 06/20/2020) Medications Medication Sig Dispensed Refills Start Date [...] times daily 180 Each 5 08/01/2018 Active Insulin Pen Needle (BD PEN NEEDLE SHORT U/F) 31G X 8 MM Use 5 times daily with insulin 200 Box Dosing Unit 11 02/26/2019 Active insulin aspart (NOVOLOG) 100 UNIT/ML SOPN Inject 25 Units under the skin three times a day with meals. 5 Pre-filled Pen Syringe Dosing Unit 1 11/15/2019 Active oxygen GASIndications:ELISSA (obstructive sleep apnea) 2 [...] at bedtime. 90 Cap 3 12/18/2019 Active insulin aspart (INSULIN ASPART) 100 UNIT/ML injection USE IN INSULIN PUMP UP TO 200 UNITS PER DAY 90 mL 3 12/18/2019 Active levothyroxine (LEVOXYL) 200 MCG [...] mouth daily. 90 Cap 3 12/18/2019 Active insulin aspart (INSULIN ASPART) 100 UNIT/ML injection NOVOLOG Vial- USE IN INSULIN PUMP UP TO 200 UNITS PER DAY 10 mL 0 01/17/2020 Active metolazone (ZAROXOLYN) 2.5 MG Tablet Take [...] a day. 90 Tab 3 03/13/2020 Active insulin aspart (NOVOLOG) 100 UNIT/ML injection use in insulin pump up to 200 units per day as directed 30 mL 5 04/02/2020 Active DIURETIC TITRATION PLANIndications:Case Management Coordinator zahra diastolic congestive heart failure (HCC) If no improvement on day 3, contact heart failure managing provider. 1 Each 0 04/08/2020 Active dicyclomine (BENTYL) 20 MG Tablet Take 1 Tab by mouth 4 times a day as needed for Pain, Mild. For abdominal pain 120 Tab 11 05/06/2020 Active traMADol (ULTRAM) 50 MG TabletIndications:Ch ronic pain syndrome Take 1 Tab by mouth every 8 hours as needed for Pain, Severe. 90 Tab 0 05/06/2020 Active zoster vac recomb adjuvanted (SHINGRIX) [...] 1 06/03/2020 Active clonazePAM (KLONOPIN) 0.5 MG TabletIndications:An xiety state TAKE ONE TABLET BY MOUTH TWICE DAILY 60 Tab 0 06/12/2020 Active documented as of this encounter (statuses as of 06/20/2020) Active Problems Problem Noted Date Uncontrolled type 2 diabetes mellitus with stage 4 chronic kidney disease, with long-term current use of insulin 01/07/2020 Overview: Per CKD protocol Primary osteoarthritis of left knee 10/28 Chronic [...] as of this encounter (statuses as of 06/20/2020) Resolved Problems Problem Noted Date Resolved Date Other atherosclerosis of lorrie martinez arteries of [...] as of this encounter (statuses as of 06/20/2020) Immunizations Name Administration Dates Next Due Pneumococcal [...] Recorded Female 11/07/2019 2:[address] COVID-19 Exposure Response Date Recorded In the last month, have you been in contact with someone who was confirmed or suspected to have Coronavirus / COVID-19? No / Unsure 06/03/2020 10:46 AM EDT documented as of this encounter Miscellaneous Notes * Telephone Encounter - Tasha Bowens OSA - 06/20/2020 1:49 PM EDT Patient called for an interim prescription for her insulin. I transferred her to the RX line. documented in this encounter Plan of Treatment Upcoming Encounters Date Type Specialty Care Team Description 06/25/2020 Office Visit [facility]acy [facility] [address] [address] 06/26/2020 Home Visit Family Medicine Magaly Morales, Community Health Appliance Counselor [address] [facility] [place] [address] [phone] 07/08/2020 Home Visit [facility] Rema Real, CASHIER TICKET SELLING [facility] [place] [address] [phone] 07/10/2020 Office Visit Orthopedics [facility]ack [facility]ague DO [address] [facility] [address] [phone] 07/11/2020 Imaging Radiology 07/17/2020 Home Visit [facility] Vera Capellan RN [address] [facility] [place] [address] [phone] 07/29/2020 Telemedicine Pulmonary Celsa Tafoya CRNP [address] [facility] [place] [address] [phone] 08/22/2020 Office Visit Nephrology Gia White MD [address] [place], [place] [phone] 09/30/2020 Office Visit Dermatology Apple Kaminski MD [address] [place] [address] [phone] 11/13/2020 Office Visit Family Medicine Kevin Whiteside DO [address] [facility] [place] [address] [phone] 11/27/2020 Office Visit Pulmonary Celsa Tafoya CRNP [address] [facility] [place] [address] [phone] 02/02/2021 Office Visit Cardiology Rey Woodall MD [address] [facility] [place] [address] [phone] Health Maintenance Due Date Last Done Comments Zoster Vaccines (3 of 3) 01/02/2020 11/07/2019, 11/24 Pneumococcal Vaccine: 65+ Years (1 of 1 - PPSV23) 2020 08/22/2009, 06/15/2006 BREAST CANCER SCREENING DISCUSSION YEARLY AGES 40-75 07/10/2020 07/10/2019, 06/23/2018, 05/09/2015, Additional history exists DIABETES-HGBA1C EVERY 6 MONTHS 07/24/2020 01/23/2020, 11/07/2019, 08/09/2019, Additional history exists DIABETES-FOOT EXAM 11/07/2020 11/07/2019, 0 01/01/2019, 12/29/2017, Additional history exists Yearly B-12 01/22/2021 01/23/2020, 02/24, 05/16/2018 DIABETES-EYE EXAM 04/07/2021 04/07/2020, , 02/24/2010 (Done elsewhere), Additional history exists Influenza Vaccine (FLU shot) Completed , 07/23/2019, 06/12/2018, Additional history exists MENINGOCOCCAL (MENACTRA/MENVEO) Aged Out No longer eligible based on patient's age to complete this topic documented as of this encounter Implants Not on filedocumented as of this encounter Advance Directives Documents on File Type Date Recorded Patient Superintendent Marine Expl 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
--- OUTSIDE RECORDS SUMMARY | 2023-06-01 05:20 | External Medical Summary | Summary of Care ---
Author Name Unknown Organization [place] [address] Care Team Providers Care Underground Heavy Equipment Operator Name Role Phone Whiteside Kevin Ocampomelinda Primary Care Provider Reason for Visit * Reason Comments Dosage Adjustment In Person (Anticoag Cl inic) Diabetes Follow-Up Encounter Details Date Type Department Care Team Description 06/25/2020 Office Visit Pharmacy, [facility] 132 [facility] [place] [address] [facility] [address] Type 2 diabetes mellitus with hemoglobin A1c goal of 7.0%-8.0% ([facility])* Allergies Active Allergy Reactions Severity Noted Date Comments Codeine 07/08/2014 hallucination Pollen 05/18/2019 Heparin 09/04/2009 Heparin Induced Thrombocytopenia Empagliflozin Other (Please comment) Medium 05/17/2018 3 yeast infections in 6 weeks after starting Morphine And Related 09/16/1997 Hallucinations Tetanus Toxoid Other (Please comment) 06/15/2011 Passed out documented as of this encounter (statuses as of 06/25/2020) Medications Medication Sig Dispensed Refills Start Date [...] sugars 3-4 times daily 180 Each 5 11/06/201 8 Active Insulin Pen Needle (BD PEN NEEDLE SHORT U/F) 31G X 8 MM Use 5 times daily with insulin 200 Box Dosing Unit 11 9 Active oxygen GASIndications:ELISSA (obstructive sleep apnea) 2 [...] 50.0 to 59.9 in adult ([facility]),Hypoxemia,ELISSA (obstructive sleep apnea),HTN, goal below 140/80 [...] abdominal pain 120 Tab 11 0 Active traMADol (ULTRAM) 50 MG TabletIndications:C hronic pain syndrome Take 1 Tab by mouth every 8 hours as needed for Pain, Severe. 90 Tab 0 0 Active zoster vac recomb adjuvanted (SHINGRIX) [...] goal of 7.0%-8.0% ([facility]) TAKE ONE CAPSULE BY MOUTH THREE TIMES DAILY 270 Cap 0 0 Active Additional Information Patient taking differently: 300 mg Oral BID, Reported on 06/05/2020 Blood Glucose Monitoring Suppl (MyCityWayTOUCH ULTRA 2) w/Device KIT Use to test BG values 1 Kit 0 0 Active Glucose Blood (ONETOUCH ULTRA BLUE) STRP Check sugars 3-4 times daily, E11.9 400 Strip 3 0 Active TRULICITY 1.5 MG/0.5ML SOPNIndications:DM type 2 nursing care encounter ([facility]),Uncontrolled type 2 diabetes mellitus with stage [...] 1 0 Active clonazePAM (KLONOPIN) 0.5 MG TabletIndications:A nxiety state TAKE ONE TABLET BY MOUTH TWICE DAILY 60 Tab 0 0 Active Tresiba FlexTouch 100 UNIT/ML Subcutaneous Solution Pen-injector (Insulin Degludec) Inject 50 Units under the skin daily. 45 mL 3 0 Active NovoLOG FlexPen 100 UNIT/ML Subcutaneous Solution Pen-injector (insulin aspart) Inject up to 30 units with meals plus sliding scale as directed by diabetes clinic 81 mL 3 0 Active insulin aspart (NOVOLOG) 100 UNIT/ML SOPN Inject 25 Units under the skin three times a day with meals. 5 Pre-filled Pen Syringe Dosing Unit 1 0 06/25/20 20 Discontinued insulin aspart (INSULIN ASPART) 100 UNIT/ML injection USE IN INSULIN PUMP UP TO 200 UNITS PER DAY 90 mL 3 0 06/25/20 20 Discontinued insulin aspart (INSULIN ASPART) 100 UNIT/ML injection NOVOLOG Vial- USE IN INSULIN PUMP UP TO 200 UNITS PER DAY 10 mL 0 0 06/25/20 20 Discontinued Insulin Aspart 100 UNIT/ML Subcutaneous Solution (NovoLOG) use in insulin pum p up to 200 units daily as directed 30 mL 0 0 06/25/20 20 Discontinued documented as of this encounter (statuses as of 06/25/2020) Active Problems Problem Noted Date Uncontrolled type [...] 10/14/2014 Overview: ICD-10 update of inactive term [place] filter in place 08/19/2014 History of pulmonary [...] as of this encounter (statuses as of 06/25/2020) Resolved Problems Problem Noted Date Resolved Date [...] as of this encounter (statuses as of 06/25/2020) Immunizations Name Administration Dates Next Due Pneumococcal [...] AM EDT documented as of this encounter Progress Notes * Rose Barton, [facility] - 06/25/2020 8:50 AM EDT Medication Therapy Disease Management CSII Follow-up Interval History: Stephanie Camp is an 65 year old year old female returning to the Medication Therapy Disease Management [facility] for a diabetes insulin pump follow-up visit. Blood glucose control since last visit: stable Medication intolerance: no Medication compliance: no Medication contraindications: no Complicating factors/cost barriers: no Hospitalization or ED Utilization since last visit: no Hypoglycemia requiring assistance since last visit: no Current Diabetes Medications: Trulicity 1.5 mg weekly Medtronic 630G Insulin Pump (Serial Number: [id number]) Infusion Set: SureT Insulin: Novolog INC: Basal Rate: 4.75 units/hour Bolus: 22 units with breakfast, 22 units with lunch and 22 units with supper and 8 units with bedtime snack Bolus wizard: on and using ICR: 4 ISF: 8 Blood Glucose Goals: 120-150 Active Insulin Time: 4 hours [facility] Blood Glucose Review: Hypoglycemia Assessment: 1. Do you know what the symptoms of hypoglycemia are? Yes 2. How often can you tell by your symptoms if your blood sugar is low? Always 3. In a typical week, how many times will your blood sugar go below 70 mg/dL? Never Patient Active Problem List Diagnosis Code Dyslipidemia E78.5 ELLIE (generalized anxiety disorder) F41.1 Postsurgical hypothyroidism E89.0 Nocturnal hypoxemia G47.34 ELISSA (obstructive sleep apnea) G47.33 Venous insufficiency I87.2 HTN, goal below 130/80 I10 History of pulmonary embolus (PE) Z86.711 Statin intolerance Z78.[address] Z95.828 Type 2 diabetes mellitus with hemoglobin A1c goal of 7.0%-8.0% ([facility]) E11.9 Fibromyalgia M79.7 Abnormality of gait R26.9 Restless legs syndrome G25.81 Gastroesophageal reflux disease with esophagitis K21.0 Body mass index (BMI) of 50.0 to 59.9 in adult ([facility]) Z68.43 Controlled substance agreement signed Z79.899 Chronic diastolic congestive heart failure ([facility]) I50.32 Mild episode of recurrent major depressive disorder ([facility]) F33.0 Lumbar radiculopathy M54.16 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, NYHA class 1 and CKD stage 3 ([facility]) I13.0, I50.30, N18.3 Chronic respiratory failure with hypoxia ([facility]) J96.11 Hyperparathyroidism, secondary renal ([facility]) N25.81 Vasculitis ([facility]) I77.6 Primary osteoarthritis of left knee M17.12 Uncontrolled type 2 diabetes mellitus with stage 4 chronic kidney disease, with long-term current use of insulin ([facility]) E11.22, E11.65, N18.4, Z79.4 Review of patient's allergies indicates: Allergen Reactions Jardiance [Empagliflozin] Other (Please comment) 3 yeast infections in 6 weeks after starting Codeine hallucination Hay Fever [Pollen] Heparin Heparin Induced Thrombocytopenia Morphine And Related Hallucinations Tetanus Toxoid Other (Please comment) Passed out Current Outpatient Medications Medication Sig Dispense Refill Insulin Aspart 100 UNIT/ML Subcutaneous Solution (NovoLOG) use in insulin pum p up to 200 units daily as directed 30 mL 0 clonazePAM (KLONOPIN) 0.5 MG Tablet TAKE ONE [...] The 10-year ASCVD risk score (Freddy JOHNS JrRonald, et al., 2013) is: 13.1% Values used to calculate the score: Age: 65 years Sex: Female Is Non- : No Diabetic: Yes Tobacco smoker: No Systolic Blood Pressure: 116 mmHg Is BP treated: Yes HDL Cholesterol: 36 mg/dL Total Cholesterol: 183 mg/dL Estimated body mass index is 56.73 kg/m as calculated from the following: Height as of 05/26/20: 1.626 m (5' 4"). Weight as of 06/13/20: 149.9 kg (330 lb 8 oz). BP Readings from Last 3 Encounters: 06/13/20 116/68 06/05/20 104/60 05/26/20 115/73 No POC orders found HEMOGLOBIN, A1C(%) Nessa Dt/Tm Resulted Value Status 01/23/20 11:11A 01/23/20 7.3* FINAL 11/07/19 3:04P 11/07/19 8.3* FINAL 08/09/19 11:02A 08/09/19 9.4* FINAL MICROALBUMIN RATIO(mg/g creat) Nessa Dt/Tm Resulted Value Status 05/24/19 2:59P 05/24/19 <16 FINAL 05/01/18 9:13A 05/01/18 <18 FINAL 03/03/17 12:37P 03/03/17 <15 FINAL LDL (CALCULATED)(mg/dL) Nessa Dt/Tm Resulted Value Status 03/14/19 1:54P 03/14/19 FINAL Value: UNINTERPRETABLE RESULT BASIC METAB PANEL, [facility] Nessa Dt/Tm Resulted Value Status BUN (mg/dL) [...] Value Status 05/06/20 8:46A 05/06/20 27 FINAL Assessment & Plan: Glycemic control is stable but not at goal Patient agreeable to continue medications as noted below. Patient has now been transferred to [facility] medicare. Her insulin for her pump will now be billed through part B due to use of a device. This is cost prohibitive, therefore will switch back to insulin pens at this time. This is severely unfortunate, as her BG control was the best it has been in over 2 years with the addition of the pump. Will restart previous insulin dosage. Patient to SMBG at least 4 times daily, before each meal and at bedtime. Patient aware to contact clinic if any hypoglycemia before next visit. Reviewed rule of 15s. Reviewed appropriate management of hyperglycemia as noted in pump start documentation. Diabetes Medications: Discontinue pump due to cost START: Novolog 25 units with meals plus 1:25 over 150 START: Tresiba 50 units HS Diabetes Health Maintenance: up-to-date Return to Clinic: 6 week(s) Next Office Visit: 08/06/2020 Scheduled Provider(s): [facility] Moe Barton [facility] Clinical Pharmacist Medication Therapy Disease Management 06/25/2020, 8:51 AM documented in this encounter Plan of Treatment Upcoming Encounters Date Type Specialty Care Team Description 06/26/2020 Home Visit Family Medicine Magaly Morales, Community Health Livestock Farm Manager [address] [place] [address] [phone] 07/07/2020 Cat Scan Tech [facility] Rema Real LSW [address] [place] [address] [phone] 07/08/2020 Home Visit [facility] Rema Real LSW [address] [place] [address] [phone] 07/10/2020 Office Visit Orthopedics Zack Teague DO [address] [place] [address] [phone] 07/11/2020 Imaging Radiology 07/17/2020 Home Visit [facility] Vera Capellan RN [address] [place] [address] [phone] 07/29/2020 Telemedicine Pulmonary Celsa Tafoya CRNP 132 [facility] [place] [address] [phone] 08/06/2020 Office Visit Pharmacy [facility] [place]amie 132 [facility] [place] [address] 08/22/2020 Office Visit Nephrology Gia White MD [address] [place] [address] 09/30/2020 Office Visit Dermatology Apple Kaminski MD 200 [place] [address] 11/13/2020 Office Visit Family Medicine Kevin Whiteside DO 132 [facility] [place] [address] [phone] 11/27/2020 Office Visit Pulmonary Celsa Tafoya CRNP 132 [facility] [place] [id number] 02/02/2021 Office Visit Cardiology Rey Woodall MD 132 [facility] [place] [address] Health Maintenance Due Date [...] A1c goal of 7.0%-8.0% ([facility])- Primary documented in this encounter Advance Directives Documents on File Type Date Recorded Patient Risk Officer Expl 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
--- OUTSIDE RECORDS SUMMARY | 2023-06-01 05:20 | External Medical Summary | Summary of Care ---
Author Name Unknown Organization [facility] [place] [address] Care Team Providers Care Hotel Reservation Agent Name Role Phone Whiteside Kevin Ocampomelinda Primary Care Provider Reason for Visit * Reason Onset Date Comments [facility]: Maintenance 06/20/2020 Encounter Details Date Type Department Care Team Description 06/20/2020 Telephone [facility], [facility] [address] [facility] [place] [address] Rema Real, [facility] [address] [facility] [place] [address] [phone] [facility]: Maintenance Allergies Active Allergy [...] 90 Tab 3 03/13/2020 Active DIURETIC TITRATION PLANIndications:Desizing Machine Offbearer zahra diastolic congestive heart failure (HCC) If [...] Reported on 06/05/2020 Blood Glucose Monitoring Suppl (AssetAvenue ULTRA 2) w/Device KIT Use to test [...] 05/27/2020 Active furosemide (LASIX) 40 MG TabletIndications:Ch chenic diastolic congestive heart failure (HCC) Take 2 [...] TWICE DAILY 60 Tab 0 06/12/2020 Active Insulin Aspart 100 UNIT/ML Subcutaneous Solution (NovoLOG) use in insulin pum p up to 200 units daily as directed 30 mL 0 06/20/2020 Active documented as of this encounter (statuses [...] 10/14/2014 Overview: ICD-10 update of inactive term Rf[place] filter in place 08/19/2014 History of pulmonary [...] Telephone Encounter - Rema Real LSW - 06/20/2020 6:34 PM EDT STEFANY called Stephanie after hearing she called for STEFANY today. She explained that she now has a co-paymentfor insulin because she is in the donut hole. She reports the cost is 103 dollars twice a month. She did purchase it today as she has to have insulin. She reports talking to [facility] and they spoke with [facility] and there is no adjustments that can be made. STEFANY will follow up on Tuesday. She agrees-needs met for now. documented in this encounter Plan of Treatment Upcoming Encounters Date Type Specialty Care Team Description 06/23/2020 Slitting Machine Operator Helper [facility] Rema Real LSW [address] [place] [address] [phone] 06/25/2020 Office Visit Pharmacy [facility] [place] [facility] [place] [address] 06/26/2020 Home Visit Family Medicine Magaly Morales, Community Health Scissors Grinder [address] [place] [address] [phone] 07/08/2020 Home Visit [facility] Rema Real LSW [facility] [place] [address] [phone] 07/10/2020 Office Visit Orthopedics Zack Teague DO 132 [facility] [place] [address] [phone] 07/11/2020 Imaging Radiology 07/17/2020 Home Visit [facility] Vera Capellan RN [facility] [place] [address] [phone] 07/29/2020 Telemedicine Pulmonary Celsa Tafoya CRNP 132 [facility] [place] [address] [phone] 08/22/2020 Office Visit Nephrology Gia White MD [address] [place] [address] [phone] 09/30/2020 Office Visit Dermatology Apple Kaminski MD 200 [place] [address] [phone] 11/13/2020 Office Visit Family Medicine Kevin Whiteside DO [facility] [place] [address] [phone] 11/27/2020 Office Visit Pulmonary Celsa Tafoya CRNP 132 [facility] [place] [address] [phone] 02/02/2021 Office Visit Cardiology Rey Woodall MD [address] [place] [address] [phone] Health Maintenance Due Date Last Done Comments [...] Documents on File Type Date Recorded Patient Mechanical Cad Drafter Expl 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
--- OUTSIDE RECORDS SUMMARY | 2023-06-01 05:20 | External Medical Summary | Summary of Care ---
Author Name Unknown Organization [place] [address] Care Team Providers Care Vending Machine Repairer Name Role Phone Kevin Whiteside DO Primary Care Provider Reason for Visit * Reason Onset Date Comments [facility]: Maintenance 06/20/2020 Encounter Details Date Type Department Care Team Description 06/20/2020 Telephone [facility], [facility] [address] [facility] [place] [address] [facility], Nurse [facility] 132 [place] [address] [phone] [facility]: Maintenance Allergies Active Allergy [...] 30 mL 5 04/02/2020 Active DIURETIC TITRATION PLANIndications:Telesales Agent zahra diastolic congestive heart failure (HCC) [...] Telephone Encounter - Maris Mariscal RN - 06/20/2020 2:38 PM EDT Call received from the pt. Requesting a call back from her SW Margoth. TT message sent to Margoth Banegas to reach out to the pt. documented in this encounter Plan of Treatment Upcoming Encounters Date Type Specialty Care Team Description 06/25/2020 Office Visit Pharmacy [facility] [place] 132 [facility] [place] [address] 06/26/2020 Home Visit Family Medicine Magaly Morales, Community Health Cold Mill Inspector [address] [place] [address] 07/08/2020 Home Visit [facility] Rema Real LSW [address] [facility] [place] [address] [phone] 07/10/2020 Office Visit Orthopedics Zack Teague DO [address] [facility] [place] [address] [phone] 07/11/2020 Imaging Radiology 07/17/2020 Home Visit [facility] [place] Vera Capellan RN 132 [facility] [place] [address] [phone] 07/29/2020 Telemedicine Pulmonary Celsa Tafoya CRNP 132 [facility] [place] [address] [phone] 08/22/2020 Office Visit Nephrology Gia White MD [address] [place] [address] [phone] 09/30/2020 Office Visit Dermatology Apple Kaminski MD 200 [place] [address] [phone] 11/13/2020 Office Visit Family Medicine Kevin Whiteside DO 132 [facility] [place] [address] [phone] 11/27/2020 Office Visit Pulmonary Celsa Tafoya CRNP 132 [facility] [place] [address] [phone] 02/02/2021 Office Visit Cardiology Rey Woodall MD [address] [facility] [place] [address] [phone] Health Maintenance Due Date Last Done Comments [...] Documents on File Type Date Recorded Patient Or Scrub Tech Expl 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
--- OUTSIDE RECORDS SUMMARY | 2023-06-01 05:20 | External Medical Summary | Summary of Care ---
Author Name Unknown Organization [place] [address] Care Team Providers Care Cambering Machine Operator Name Role Phone Whiteside Kevin Ocampomelinda DO Primary Care Provider Reason for Visit * Reason Comments Follow Up Encounter Details Date Type Department Care Team Description 06/09/2020 Telephone [facility], [facility] [address] [place], [place] [id number] CousinsRaj DO [address] [facility] [place] [id number] Follow Up Allergies Active Allergy Reactions Severity Noted Date Comments Codeine 07/08/2014 hallucination Pollen 05/18/2019 Heparin 09/04/2009 Heparin Induced Thrombocytopenia Empagliflozin Other (Please comment) Medium 05/17/2018 3 yeast infections in 6 weeks after starting Morphine And Related 09/16/1997 Hallucinations Tetanus Toxoid Other (Please comment) 06/15/2011 Passed out documented as of this encounter (statuses as of 06/09/2020) Medications Medication Sig Dispensed Refills Start Date [...] 30 mL 5 04/02/2020 Active DIURETIC TITRATION PLANIndications:Park Maintenance Technician zahra diastolic congestive heart failure [...] in 10/2019 1 Each 0 05/08/2020 Active clonazePAM (KLONOPIN) 0.5 MG TabletIndications:An xiety state Take 1 Tab by mouth 2 times a day. 60 Tab 0 05/08/2020 Active gabapentin (NEURONTIN) 300 MG CapsuleIndications:T ype 2 diabetes mellitus with hemoglobin A1c goal of 7.0%-8.0% ([facility]) TAKE ONE CAPSULE BY MOUTH THREE TIMES DAILY 270 Cap 0 05/20/2020 Active Additional Information Patient taking differently: 300 mg Oral BID, Reported on 06/05/2020 9:51 AM Blood Glucose Monitoring Suppl (TianjiTOUCH ULTRA 2) w/Device KIT Use to test [...] MG TabletIndications:Ch ronic diastolic congestive heart failure ([facility]) Take 2 Tabs by mouth daily. 180 Tab 3 05/28/2020 Active colchicine 0.6 MG TabletIndications:Le ukocytoclastic vasculitis ([facility]) Take 1/2 tab daily 45 Tab 1 06/03/2020 Active clobetasol propionate (TEMOVATE) 0.05 % creamIndications:Lic hen planus Apply to rash on the hands and dorsal feet twice daily x 1 week, then as needed for flares. 30 g 1 06/03/2020 Active documented as of this encounter (statuses as of 06/09/2020) Active Problems Problem Noted Date Uncontrolled type [...] as of this encounter (statuses as of 06/09/2020) Resolved Problems Problem Noted Date Resolved Date [...] as of this encounter (statuses as of 06/09/2020) Immunizations Name Administration Dates Next Due Pneumococcal Polysaccharide PPV23 (Pneumovax) 08/22/2009,06/15/2006 Seasonal Influenza, Quadriva lent, No Preserve, 6 Mons & Above, IM 07/23/2019,06/12/2018,07/14/2017 Seasonal Influenza, Quadriva lent, No Preserve, IM [...] file Not on file Not on file Travel History Travel Start Travel End COVID-19 Exposure Response Date Recorded In the last month, have you been in contact with someone who was confirmed or suspected to have Coronavirus / COVID-19? No / Unsure 06/03/2020 10:46 AM EDT documented as of this encounter Miscellaneous Notes * Telephone Encounter - Telma Sandoval LPN - 06/09/2020 12:13 PM EDT Patient reports improvement with injection. Will call back if needed in future. documented in this encounter Plan of Treatment Upcoming Encounters Date Type Specialty Care Team Description 06/10/2020 Home Visit [facility] Rema Real LSW [address] [place] [address] [phone] 06/13/2020 Office Visit Cardiology Marjorie Powell PA-C [address] [place] [address] [phone] 06/25/2020 Office Visit Pharmacy [facility], [facility] [place] [address] [place] [address] 06/26/2020 Home Visit Family Medicine Magaly Morales, Community Health Supervisor [employer] [address] [place] [address] [phone] 07/10/2020 Office Visit Orthopedics Zack Teague DO 132 [facility] [place] [address] [phone] 07/11/2020 Imaging Radiology 07/17/2020 Home Visit [facility] [place] Vera Capellan RN 132 [facility] [place] [address] [phone] 07/29/2020 Telemedicine Pulmonary Celsa Tafoya CRNP 132 [facility] [place] [address] [phone] 08/22/2020 Office Visit Nephrology Gia White MD [address] [place], [place] [id number] 09/30/2020 Office Visit Dermatology Apple Kaminski MD 200 [place] [address] [phone] 11/13/2020 Office Visit Family Medicine Kevin Whiteside DO 132 [facility] [place] [address] [phone] 11/27/2020 Office Visit Pulmonary Celsa Tafoya CRNP 132 [facility] [place] [address] [phone] Health Maintenance Due Date Last Done Comments Zoster Vaccines (3 of 3) 01/02/2020 11/07/2019, 11/24 Pneumococcal Vaccine: 65+ Years (1 of 2 - PCV13) 2020 08/22/2009, 06/15/2006 Influenza Vaccine (FLU shot) (#1) 2020 07/23/2019, 06/12/2018, 06/12/2018, Additional history exists BREAST CANCER SCREENING DISCUSSION YEARLY AGES 40-75 07/10/2020 07/10/2019, 06/23/2018, 05/09/2015, Additional history exists DIABETES-HGBA1C EVERY 6 MONTHS 07/24/2020 01/23/2020, 11/07/2019, 08/09/2019, Additional history exists DIABETES-FOOT EXAM 11/07/2020 11/07/2019, 0 01/01/2019, 12/29/2017, Additional history exists Yearly B-12 01/22/2021 01/23/2020, 02/24, 05/16/2018 DIABETES-EYE EXAM 04/07/2021 04/07/2020, , 02/24/2010 (Done elsewhere), Additional history exists MENINGOCOCCAL (MENACTRA/MENVEO) Aged Out No longer eligible based on patient's age to complete this topic documented as of this encounter Implants Not on filedocumented as of this encounter Advance Directives Documents on File Type Date Recorded Patient Baffle Mounter Expl 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
--- OUTSIDE RECORDS SUMMARY | 2023-06-01 05:20 | External Medical Summary | Summary of Care ---
Author Name Unknown Organization [place] [address] Care Team Providers Care Director Workers Compensation Name Role Phone Whiteside Kevin Ocampomelinda Primary Care Provider Reason for Visit * Reason Comments [facility]: Maintenance Encounter Details Date Type Department Care Team Description 06/05/2020 Home Visit [facility], [facility] [address] [facility] [place] [address] Vera Capellan, RN 132 [facility] [place] [address] [phone] Benign hypertensive heart and kidney disease with [...] as of this encounter (statuses as of 06/05/2020) Medications Medication Sig Dispensed Refills Start Date [...] 30 mL 5 04/02/2020 Active DIURETIC TITRATION PLANIndications:Net Mender zahra diastolic congestive heart failure (HCC) If [...] 06/05/2020 9:51 AM Blood Glucose Monitoring Suppl (NearpodTOUCH ULTRA 2) w/Device KIT Use to test [...] MG TabletIndications:Ch ronic diastolic congestive heart failure ([facility]) Take 2 Tabs by mouth daily. 180 Tab 3 05/28/2020 Active colchicine 0.6 MG TabletIndications:Le ukocytoclastic vasculitis ([facility]) Take 1/2 tab daily 45 Tab 1 06/03/2020 Active clobetasol propionate (TEMOVATE) 0.05 % creamIndications:Lic hen planus Apply to rash on the hands and dorsal feet twice daily x 1 week, then as needed for flares. 30 g 1 06/03/2020 Active documented as of this encounter (statuses as of 06/05/2020) Active Problems Problem Noted Date Uncontrolled type [...] as of this encounter (statuses as of 06/05/2020) Resolved Problems Problem Noted Date Resolved Date [...] as of this encounter (statuses as of 06/05/2020) Immunizations Name Administration Dates Next Due Pneumococcal [...] Reading Time Taken Comments Blood Pressure 104/60 06/05/2020 9:34 AM EDT Pulse 78 06/05/2020 9:34 AM EDT Temperature 36.6 C (97.8 F) 06/05/2020 9:34 AM ED T Respiratory Rate 18 06/05/2020 9:34 AM EDT Oxygen Saturation 95% 06/05/2020 9:34 AM EDT Inhaled Oxygen Concentration - - Weight - - Height - - Body Mass Index - - documented in this encounter Progress Notes * Vera Capellan RN - 06/05/2020 9:00 AM EDT [facility] Checking Clerk Visit Date: 06/05/2020 Time: 9:08 AM Name: Stephanie Camp : 1955 Current Concerns: Pt seen for return visit, reports she is doing well 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 The pain is much better. She still has weakness in her legs but states she is trying to walk as much as she can to regain strength. Checking bsgs TID and has insulin pump in place - reports she had higher readings the first 2 days after injection but it has since returned to normal Reports weight has been up and down between 320 and 323 lbs the past several weeks - dry wt is 320 lbs No increase in edema, SOB, abd bloating. Physical Exam: BP 104/60 | Pulse 78 | Temp 36.6 C (97.8 F) | Resp 18 | LMP 03/11/2003 | SpO2 95% Pain 0 Physical Exam Constitutional: Appearance: She is obese. HENT: Nose: Nose normal. Cardiovascular: Rate and Rhythm: Normal rate and regular rhythm. Pulses: Normal pulses. Heart sounds: Normal heart sounds. Pulmonary: Effort: Pulmonary effort is normal. Breath sounds: Normal breath sounds. Abdominal: General: Bowel sounds are normal. Palpations: Abdomen is soft. Musculoskeletal: Right lower leg: Edema (mild) present. Left lower leg: Edema (mild) present. Skin: General: Skin is warm and dry. Neurological: Mental Status: She is alert and oriented to person, place, and time. Psychiatric: Mood and Affect: Mood normal. Behavior: Behavior normal. Thought Content: Thought content normal. Judgment: Judgment normal. Problems/Symptoms: Review of Systems Constitutional: Negative. HENT: Negative. Eyes: Negative. Respiratory: Positive for shortness of breath (AVENDAÑO - at baseline). Cardiovascular: Positive for leg swelling (Mild - BLE). Endocrine: Negative. Genitourinary: Negative. Musculoskeletal: Positive for arthralgias and gait problem. Skin: Small raised flesh colored spots on b/l hands - applying clobetasol Hematological: Negative. Psychiatric/Behavioral: Negative. Medication Reconciliation: (See medication list) Does patient take medications as ordered: Yes Patient Well Being: PHQ2/9: @[id number]@ No change in living situation. Denies falls. Denies feeling of depression Advanced Care Planning: POLST. Patient's Goals of Care: 1. Left knee surgery 2. Continue to lose wt 3. Get stronger Reinforcement/Education: Reviewed HF [...] fluid restriction Ck bsgs and record tid Continue with insulin pump Wear b/l le support hose-on day/off night Zaroxolyn prn for fluid overload-take only as advised Continue with clobetasol to lesions x 1 week per derm Home Interventions Provided: Home Intervention: Other; evaluation Reinforced current Plan of Care, including self-management and medication regimen Patient's 'Red Flags': 1. Wt increase of 3 lbs in 24 hrs or 5 lbs in one week 2. Increased edema 3. Increased SOB Patient Needs to Remember: Call [facility] at with any new or worsening health concerns or problems, red flag symptoms. Referrals Needed: Other none Follow Up: Patient encouraged to call the intake phone number for all urgent but not emergent issues. Is the patient new to [facility] within the last 30 days? No, Assess appropriateness for upcoming telehealth visits. Cancel telehealth visits & schedule home visit with care steamer operator(s)as indicated. Provider is in agreement with Plan of Care: Yes Scheduled to follow up with patient in 3 weeks (06/26) with LES and 3 weeks following that with CORI. Vera Capellan RN 06/05/2020 9:08 AM documented in this encounter Plan of Treatment Upcoming Encounters Date Type Specialty Care Team Description 06/10/2020 [facility] Visit [facility] Rema Real LSW [address] [facility] [place] [address] [phone] 06/25/2020 Office Visit Pharm[facility] [place] [facility] [place] [address] 06/26/2020 Home Visit Family Medicine Magaly Morales, Community Health Arrt Technologist [address] [place] [address] [phone] 07/10/2020 Office Visit Orthopedics Zack Teague DO [address] [facility] [place] [address] [phone] 07/11/2020 Imaging Radiology 07/17/2020 Home Visit [facility] [place] Vera Capellan RN [address] [facility] [place] [address] [phone] 07/29/2020 Telemedicine Pulmonary Celsa Tafoya CRNP [address] [facility] [place] [address] [phone] 08/22/2020 Office Visit Nephrology Gia White MD [address] [place] [address] [phone] 09/30/2020 Office Visit Dermatology Apple Kaminski MD [address] [place] [address] [phone] 11/13/2020 Office Visit Family Medicine Kevin Whiteside DO [facility] [place] [address] [phone] 11/27/2020 Office Visit Pulmonary Celsa Tafoya CRNP [address] [place] [address] [phone] Health Maintenance Due Date Last Done Comments [...] Documents on File Type Date Recorded Patient Gallery Or Museum Attendant Expl 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
--- OUTSIDE RECORDS SUMMARY | 2023-06-01 05:20 | External Medical Summary | Summary of Care ---
Author Name Unknown Organization [place] [address] Care Team Providers Care Tool And Die Maker Name Role Phone Migue Whiteside DO Primary Care Provider Reason for Visit * Reason Comments eRx-Medication Refill Encounter Details Date Type Department Care Team Description 06/11/2020 Refill Family Practice [facility] [address] [place] [address] Migue Whiteside DO [address] [facility] [place] [address] [phone] Anxiety state Allergies Active Allergy Reactions Severity Noted Date Comments Codeine 07/08/2014 hallucination Pollen 05/18/2019 Heparin 09/04/2009 Heparin Induced Thrombocytopenia Empagliflozin Other (Please comment) Medium 05/17/2018 3 yeast infections in 6 weeks after starting Morphine And Related 09/16/1997 Hallucinations Tetanus Toxoid Other (Please comment) 06/15/2011 Passed out documented as of this encounter (statuses as of 06/12/2020) Medications Medication Sig Dispensed Refills Start Date [...] times daily 180 Each 5 8 Active Insulin Pen Needle (BD PEN NEEDLE SHORT U/F) 31G X 8 MM Use 5 times daily with insulin 200 Box Dosing Unit 11 9 Active insulin aspart (NOVOLOG) 100 UNIT/ML SOPN Inject 25 Units under the skin three times a day with meals. 5 Pre-filled Pen Syringe Dosing Unit 1 0 Active oxygen GASIndications:ELISSA (obstructive sleep apnea) 2 [...] at bedtime. 90 Cap 3 0 Active insulin aspart (INSULIN ASPART) 100 UNIT/ML injection USE IN INSULIN PUMP UP TO 200 UNITS PER DAY 90 mL 3 0 Active levothyroxine (LEVOXYL) 200 MCG [...] mouth daily. 90 Cap 3 0 Active insulin aspart (INSULIN ASPART) 100 UNIT/ML injection NOVOLOG Vial- USE IN INSULIN PUMP UP TO 200 UNITS PER DAY 10 mL 0 0 Active metolazone (ZAROXOLYN) 2.5 MG Tablet [...] (BMI) of 50.0 to 59.9 in adult ([facility]),Hypoxemia,ELISSA (obstructive sleep apnea),HTN, goal below 140/80 Take 0.5 Tabs by mouth 2 times a day. 90 Tab 3 0 Active insulin aspart (NOVOLOG) 100 UNIT/ML injection use in insulin pump up to 200 units per day as directed 30 mL 5 0 Active DIURETIC TITRATION PLANIndications:Chr onic diastolic [...] A1c goal of 7.0%-8.0% ([facility]) TAKE ONE CAPSULE BY MOUTH THREE TIMES DAILY 270 Cap 0 0 Active Additional Information Patient taking differently: 300 mg Oral BID, Reported on 06/05/2020 9:51 AM Blood Glucose Monitoring Suppl (Fanfou.comTOUCH ULTRA 2) w/Device KIT Use to test [...] MG TabletIndications:C hronic diastolic congestive heart failure ([facility]) Take 2 Tabs by mouth daily. 180 Tab 3 0 Active colchicine 0.6 MG TabletIndications:L eukocytoclastic vasculitis ([facility]) Take 1/2 tab [...] clonazePAM (KLONOPIN) 0.5 MG TabletIndications:A nxiety state Take 1 Tab by mouth 2 times a day. 60 Tab 0 0 06/12/20 20 Discontinued documented as of this encounter (statuses as of 06/12/2020) Active Problems Problem Noted Date Uncontrolled type [...] 10/14/2014 Overview: ICD-10 update of inactive term [place] filter in place 08/19/2014 History of [...] as of this encounter (statuses as of 06/12/2020) Resolved Problems Problem Noted Date Resolved Date [...] as of this encounter (statuses as of 06/12/2020) Immunizations Name Administration Dates Next Due Pneumococcal [...] Telephone Encounter - Migue Whiteside DO - 06/12/2020 1:39 PM EDT Signed Prescriptions: Disp Refills clonazePAM (KLONOPIN) 0.5 MG Tablet 60 Tab 0 Sig: TAKE ONE TABLET BY MOUTH TWICE DAILY Authorizing Provider: MIGUE WHITESIDE * Telephone Encounter - Enrico Mesa [facility] - 06/12/2020 12:29 PM EDT Pending Prescriptions: Disp Refills clonazePAM (KLONOPIN) 0.5 MG Tablet [Phar*60 Tab 0 Sig: TAKE ONE TABLET BY MOUTH TWICE DAILY * Telephone Encounter - Enrico Mesa [facility] - 06/12/2020 12:28 PM EDT I have reviewed the patients controlled substance dispensing history in the Prescription Drug Monitoring Program in compliance with the [facility] regulations before prescribing a controlled substance. PDMP checked on 06/12/2020. Patient requesting: Clonazepam 0.5mg, filled 05/13/20, for a 30 day supply, qty #60 . Other recent controlled medication fills: tramadol 50mg, filled 05/06/20, for a 30 day supply, qty #90 . Last Office/Telemedicine Visit: 05/08/2020 Next Office Visit: 11/13/2020 Scheduled Provider(s): Migue Whiteside DO Date medication is due for refill: 06/12/20 Pharmacy: [id number] Is this request for a controlled [...] Thanks, Enrico Mesa, PharmD Clinical Pharmacist TelePharmacy 06/12/2020 12:28 PM documented in this encounter Plan of Treatment Upcoming Encounters Date Type Specialty Care Team Description 06/13/2020 Office Visit Cardiology Marjorie Powell, EVIN [address] [facility] [place] [address] [phone] 06/25/2020 Office Visit Pharmacy Dan[facility] Ord[facility] [place] [address] [facility] [place] [address] 06/26/2020 Home Visit Family Medicine Magaly Morales, Community Health Superintendent Sales [address] [place] [address] 07/08/2020 [facility] Visit [facility] Rema Real LSW [address] [facility] [place] [address] [phone] 07/10/2020 Office Visit Orthopedics Zack Teague DO [address] [facility] [place] [address] [phone] 07/11/2020 Imaging Radiology 07/17/2020 [facility] Visit [facility] Vera Capellan, RN [address] [facility] [place] [address] [phone] 07/29/2020 Telemedicine Pulmonary Celsa Tafoya CRNP [address] [facility] [place] [address] [phone] 08/22/2020 Office Visit Nephrology Gia White MD 21 [facility] [place] [address] [phone] 09/30/2020 Office Visit Dermatology Apple Kaminski MD 200 [facility] [place] [address] [phone] 11/13/2020 Office Visit Family Medicine Migue Whiteside DO [address] [place] [address] [phone] 11/27/2020 Office Visit Pulmonary Celsa Tafoya CRNP [...] Documents on File Type Date Recorded Patient Final Inspector Movement Assembly Expl 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
--- OUTSIDE RECORDS SUMMARY | 2023-06-01 05:20 | External Medical Summary | Summary of Care ---
Author Name Unknown Organization [place] [address] Care Team Providers Care Tool Drawing Checker Name Role Phone Whiteside Kevin Ocampomelinda Primary Care Provider Reason for Visit * Reason Comments [facility]: Maintenance Encounter Details Date Type Department Care Team Description 06/23/2020 Lens Coater [facility], [facility] [address] [facility] [place] [address] Rema Real, [facility] 132 [facility] [place] [address] [phone] Allergies Active Allergy Reactions Severity Noted Date Comments Codeine 07/08/2014 hallucination Pollen 05/18/2019 Heparin 09/04/2009 Heparin Induced Thrombocytopenia Empagliflozin Other (Please comment) Medium 05/17/2018 3 yeast infections in 6 weeks after starting Morphine And Related 09/16/1997 Hallucinations Tetanus Toxoid Other (Please comment) 06/15/2011 Passed out documented as of this encounter (statuses as of 06/23/2020) Medications Medication Sig Dispensed Refills Start Date [...] 90 Tab 3 03/13/2020 Active DIURETIC TITRATION PLANIndications:Make Up Operator zahra diastolic congestive heart failure [...] Reported on 06/05/2020 Blood Glucose Monitoring Suppl (VisConPro ULTRA 2) w/Device KIT Use to test [...] as of this encounter (statuses as of 06/23/2020) Active Problems Problem Noted Date Uncontrolled type [...] as of this encounter (statuses as of 06/23/2020) Resolved Problems Problem Noted Date Resolved Date [...] as of this encounter (statuses as of 06/23/2020) Immunizations Name Administration Dates Next Due Pneumococcal [...] this encounter Progress Notes * Rema Real Thad, SUPERVISOR CLEANING AND ANNEALING - 06/23/2020 12:59 PM EDT STEFANY called Stephanie for follow up in regard to cost of insulin. She reports she spoke with Pharmacy rep who told her she should have been charged the 20% co-pay all along. The rep reported there is a generic for 145 for 30 days bringing the cost down a little. The other option is to return to the pen as a delivery for the insulin instead of injectable through the pump. SW called [employer] Customer service to understand better and see if options for future coverage of insulin. Gas Main And Line Fitter obtained info from Pharmacy. She shared that this is covered under part B and there is a 20% co-pay under part B. STEFANY called Stephanie and we called [place] [employer] [facility] tosee if they would tile picker the part B co-insurance. Spoke with rep -she reports that Stephanie's healthand wellness plan does not cover part B co-payments. STEFANY discussed next step with Stephanie. She reports that she will see her Diabetic pharmacist on Tuesday. She will discuss options. She may choose to go back to diabetic pen insulin which will be covered. She is not sure she can afford even the lower amount of the generic medication. STEFANY will follow up with Stephanie in two weeks. documented in this encounter Plan of Treatment Upcoming Encounters Date Type Specialty Care Team Description 06/25/2020 Office Visit Pharmacy [facility] [place] [address] [place] [address] 06/26/2020 Home Visit Family Medicine Magaly Morales, Community Health Sash Maker [address] [facility] [address] [phone] 07/07/2020 Lens Coater [facility] Rema Real LSW [address] [place] [address] [phone] 07/08/2020 Home Visit [facility] Rema Real LSW [address] [place] [address] [phone] 07/10/2020 Office Visit Orthopedics Zack Teague DO [address] [place] [address] [phone] 07/11/2020 Imaging Radiology 07/17/2020 Home Visit [facility] [place] Vera Capellan RN [address] [place] [address] [phone] 07/29/2020 Telemedicine Pulmonary Celsa Tafoya CRNP [address] [place] [address] [phone] 08/22/2020 Office Visit Nephrology Gia White MD 21 [facility] [place] [address] [phone] 09/30/2020 Office Visit Dermatology Apple Kaminski MD [address] [facility] [place] [address] [phone] 11/13/2020 Office Visit Family Medicine Kevin Whiteside DO [address] [facility] [address] 11/27/2020 Office Visit Pulmonary Celsa Tafoya CRNP [address] [facility] [place] [address] 02/02/2021 Office Visit Cardiology Rey Woodall MD [facility] [place] [address] Health Maintenance Due Date Last Done [...] on File Type Date Recorded Patient Gas Main And Line Fitter Expl 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
--- OUTSIDE RECORDS SUMMARY | 2023-06-01 05:20 | External Medical Summary | Summary of Care ---
Author Name Unknown Organization [place] [address] Care Team Providers Care Beef Cattle Specialist Name Role Phone Whiteside Kevin Ocampomelinda Primary Care Provider Reason for Visit * Reason Comments Order Request sleep ret Encounter Details Date Type Department Care Team Description 06/03/2020 Telephone [facility] [address] [facility] [place] [address] Celsa Tafoya CRNP 132 [facility] [place] [address] Order Request (sleep ret) Allergies Active Allergy Reactions Severity Noted Date Comments Codeine 07/08/2014 hallucination Pollen 05/18/2019 Heparin 09/04/2009 Heparin Induced Thrombocytopenia Empagliflozin Other (Please comment) Medium 05/17/2018 3 yeast infections in 6 weeks after starting Morphine And Related 09/16/1997 Hallucinations Tetanus Toxoid Other (Please comment) 06/15/2011 Passed out documented as of this encounter (statuses as of 06/04/2020) Medications Medication Sig Dispensed Refills Start Date End Date Status docusate sodium (STOOL SOFTENER) 100 MG Capsule Take 100 mg by mouth 2 times a day as needed for Constipation. 0 Active cyclobenzaprine (FLEXERIL) 10 MG Tablet TAKE ONE TABLET BY MOUTH AT BEDTIME NEEDED FOR MUSCLE SPASM 90 Tab 2 08/01/2018 Active Additional Information Patient not taking. Reported on 05/26/2020 9:24 AM ONEKATHIE BISWAS LANCETS 33G MISC Check blood [...] 30 mL 5 04/02/2020 Active DIURETIC TITRATION PLANIndications:In House Counsel zahra diastolic congestive heart failure (HCC) If [...] goal of 7.0%-8.0% ([facility]) TAKE ONE CAPSULE BY MOUTH THREE TIMES DAILY 270 Cap 0 05/20/2020 Active Blood Glucose Monitoring Suppl (ONETOUCH ULTRA [...] MG TabletIndications:Ch ronic diastolic congestive heart failure ([facility]) Take 2 Tabs by mouth daily. 180 Tab 3 05/28/2020 Active colchicine 0.6 MG TabletIndications:Le ukocytoclastic vasculitis ([facility]) Take 1/2 tab daily 45 Tab 1 06/03/2020 Active clobetasol propionate (TEMOVATE) 0.05 % creamIndications:Lic hen planus Apply to rash on the hands and dorsal feet twice daily x 1 week, then as needed for flares. 30 g 1 06/03/2020 Active documented as of this encounter (statuses as of 06/04/2020) Active Problems Problem Noted Date Uncontrolled type [...] as of this encounter (statuses as of 06/04/2020) Resolved Problems Problem Noted Date Resolved Date [...] as of this encounter (statuses as of 06/04/2020) Immunizations Name Administration Dates Next Due Pneumococcal [...] Telephone Encounter - Rema Barroso OSA - 06/04/2020 8:03 AM EDT Pt received new cpap through [facility] on 06/03/20. Needs follow up 07/04-09/01 * Telephone Encounter - Anne Mayes CMA - 06/03/2020 12:44 PM EDT Order faxed * Telephone Encounter - Celsa Tafoya CRNP - 06/03/2020 11:32 AM EDT Order placed. Please fax. * Telephone Encounter - Anne Mayes CMA - 06/03/2020 10:20 AM EDT Sonja from [facility] requesting an order for a new cpap machine. The patient states hers broke over theweekend. She is coming into [facility] this afternoon for set up. documented in this encounter Plan of Treatment Upcoming Encounters Date Type Specialty Care Team Description 06/05/2020 Home Visit [facility] Vera Capellan RN 132 [facility] [place] [address] [phone] 06/10/2020 [facility] Visit [facility] Rema Real LSW [facility] [place] [address] [phone] 06/25/2020 [facility] [place] [facility] [place] [address] 06/26/2020 Home Visit Family Medicine Magaly Morales, Community Health Resin Remover [address] [place] [address] 07/10/2020 Office Visit Orthopedics Zack Teague DO 132 [facility] [place] [address] 07/11/2020 Imaging Radiology 08/22/2020 Office Visit Nephrology Gia White MD [address] [place] [address] 09/30/2020 Office Visit Dermatology Apple Kaminski MD [address] [place] [address] [phone] 11/13/2020 Office Visit Family Medicine Kevin Whiteside DO [address] [place] [address] [phone] 11/27/2020 Office Visit Pulmonary Celsa Tafoya CRNP [address] [place] [address] [phone] Health Maintenance Due Date Last Done Comments [...] apnea)- Primary Obstructive sleep apnea (adult) (pediatric) documented in this encounter Advance Directives Documents on File Type Date Recorded Patient Gas Regulator Repairer 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
--- OUTSIDE RECORDS SUMMARY | 2023-06-01 05:20 | External Medical Summary | Summary of Care ---
Author Name Unknown Organization [place] [address] Care Team Providers Care Front End Java Developer Name Role Phone Whiteside Kevin Ocampomelinda Primary Care Provider Reason for Visit * Reason Comments Order Request sleep ret Encounter Details Date Type Department Care Team Description 06/03/2020 Telephone [facility] [address] [facility] [place] [address] Celsa Tafoya CRNP 132 [facility] [place] [address] Order Request (sleep ret) [...] 30 mL 5 04/02/2020 Active DIURETIC TITRATION PLANIndications:Page Makeup System Operator zahra diastolic congestive heart failure (HCC) [...] A1c goal of 7.0%-8.0% ([facility]) TAKE ONE CAPSULE BY MOUTH [...] MG TabletIndications:Ch ronic diastolic congestive heart failure ([facility]) Take 2 Tabs by mouth daily. 180 Tab 3 05/28/2020 Active colchicine 0.6 MG TabletIndications:Le ukocytoclastic vasculitis ([facility]) Take 1/2 tab [...] Encounter - Rema Barroso OSA - 06/04/2020 3:31 PM EDT Spoke with pt, appt scheduled * Telephone Encounter - Rema Barroso OSA - 06/04/2020 8:03 AM EDT Pt received new cpap through [facility] on 06/03/20. Needs follow up 07/04-09/01 * Telephone Encounter - Anne Mayes CMA - 06/03/2020 12:44 PM EDT Order faxed * Telephone Encounter - Celsa Tafoya CRNP - 06/03/2020 11:32 AM EDT Order placed. Please fax. * Telephone Encounter - Anne Mayes CMA - 06/03/2020 10:20 AM EDT Sonja from [facility] requesting an order for a new cpap machine. The patient states hers broke over theweekend. She is coming into [facility] this afternoon for set up. documented in this encounter Plan of Treatment Upcoming Encounters Date Type Specialty Care Team Description 06/05/2020 [facility] Visit [facility] [place] [facility]an [facility] [place] [address] [phone] 06/10/2020 [facility] Visit [facility] Rema Real LSW [address] [place] [address] [phone] 06/25/2020 Office Visit Pharmacy [facility] [place] [address] [place] [address] 06/26/2020 Home Visit Family Medicine Magaly Morales, Community Health Environmental Quality Analyst [address], [place] [id number] 07/10/2020 Office Visit Orthopedics Zack Teague DO [address] [place] [address] [phone] 07/11/2020 Imaging Radiology 07/29/2020 Telemedicine Pulmonary Celsa Tafoya CRNP [address] [place] [address] [phone] 08/22/2020 Office Visit Nephrology Gia White MD [address] [place] [address] [phone] 09/30/2020 Office Visit Dermatology Apple Kaminski MD [address] [place] [address] [phone] 11/13/2020 Office Visit Family Medicine Kevin Whiteside DO [address] [place] [address] [phone] 11/27/2020 Office Visit Pulmonary Celsa Tafoya CRNP [address] [place] [address] [phone] Health Maintenance Due Date Last Done Comments [...] on File Type Date Recorded Patient Social Studies Teacher Expl 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
--- OUTSIDE RECORDS SUMMARY | 2023-06-01 05:20 | External Medical Summary | Summary of Care ---
Author Name Unknown Organization [place] [address] Care Team Providers Care Creative Services Coordinator Name Role Phone Stevo Kevin Ocampomelinda Primary Care Provider Reason for Visit * Reason Comments [facility]: Maintenance Encounter Details Date Type Department Care Team Description 06/26/2020 Home Visit Care Coordination [address] [place] [address] Magaly Morales, Community Health Music Sound Light Technician [address], [place] [id number] Allergies Active Allergy Reactions Severity Noted Date Comments Codeine 07/08/2014 hallucination Pollen 05/18/2019 Heparin 09/04/2009 Heparin Induced Thrombocytopenia Empagliflozin Other (Please comment) Medium 05/17/2018 3 yeast infections in 6 weeks after starting Morphine And Related 09/16/1997 Hallucinations Tetanus Toxoid Other (Please comment) 06/15/2011 Passed out documented as of this encounter (statuses as of 06/27/2020) Medications Medication Sig Dispensed Refills Start Date [...] [address] 11 02/26/2019 Active oxygen GASIndications:ELISSA (obstructive sleep apnea) 2 [...] of 50.0 to 59.9 in adult ([facility]),Hypoxemia,ELISSA (obstructive sleep apnea),HTN, goal below 140/80 Take 0.5 Tabs by mouth 2 times a day. 90 Tab 3 03/13/2020 Active DIURETIC TITRATION PLANIndications:Nurse Outreach Case Manager zahra diastolic congestive heart failure (HCC) [...] goal of 7.0%-8.0% ([facility]) TAKE ONE CAPSULE BY MOUTH [...] SOPNIndications:DM type 2 nursing care encounter ([facility]),Uncontrolled type 2 diabetes mellitus with [...] skin daily. 45 mL 3 06/25/2020 Active NovoLOG FlexPen 100 UNIT/ML Subcutaneous Solution Pen-injector (insulin aspart) Inject up to 30 units with meals plus sliding scale as directed by diabetes clinic 81 mL 3 06/25/2020 Active documented as of this encounter (statuses as of 06/27/2020) Active Problems Problem Noted Date Uncontrolled type [...] as of this encounter (statuses as of 06/27/2020) Resolved Problems Problem Noted Date Resolved Date [...] has booklet. Other allergic rhinitis 12/31/2003 08/26/20 Overview: ICD-10 update of inactive term HTN, [...] as of this encounter (statuses as of 06/27/2020) Immunizations Name Administration Dates Next Due Pneumococcal [...] Reading Time Taken Comments Blood Pressure 118/68 06/26/2020 10:55 AM EDT Pulse 82 06/26/2020 10:55 AM EDT Temperature 36.7 C (98 F) 06/26/2020 10:55 AM EDT Respiratory Rate 18 06/26/2020 10:55 AM EDT Oxygen Saturation 95% 06/26/2020 10:55 AM EDT Inhaled Oxygen Concentration - - Weight - - Height - - Body Mass Index - - documented in this encounter Progress Notes * Magaly Morales, Community Health Music Sound Light Technician - 06/26/2020 11:00 AM EDT Community [facility] Music Sound Light Technician Visit Date: 06/26/2020 Time: 10:45 AM Name: Stephanie Camp : 1955 Arrived at patient home.Patient tending to her two cats.She is presenting with a good mood and smile.No concerns at this time. Denies SOB and Falls Source of Information: Patient Vitals: Vital signs completed: Yes, vital signs within normal range. BP 118/68 (BP Site: Left Arm, BP Position: Sitting) | Pulse 82 | Temp 36.7 C (98 F) | Resp 18 |LMP 03/11/2003 | SpO2 95% Condition Changes: Changes in health or social status since last visit: Walking more out side The patient has new concerns since last visit: No Medications: Medication review completed? No, no requested Does the patient have barriers to medication adherence? No. NEW as of 06/25/2020 Discontinue pump due to cost START: Novolog 25 units with meals plus 1:25 over 150 START: Tresiba 50 units HS Telehealth: This is a telehealth visit: No. Symptoms Surveys and Evaluations: [facility] completed this visit: No Last flowsheet values for MAH0: Age 65+: 0 (03/24/2020 3:00 PM) Diagnosis (3 or more co-existing): 0 (03/24/2020 3:00 PM) Prior history of falls within 3 months: 0 (03/24/2020 3:00 PM) Incontinence: 1 (03/24/2020 3:00 PM) Visual [...] at risk for fallin (03/24/2020 3:00 PM) Plan: Notified Provider/Scudding Inspectortwisting frame changer in condition Follow Up: Patient encouraged to call the intake phone number for all urgent but not emergent issues. Scheduled to follow up with patient in 6weeks . [facility] 06/26/2020 10:45 AM documented in this encounter Plan of Treatment Upcoming Encounters Date Type Specialty Care Team Description 07/07/2020 Beater Machine Operator [facility] Rema Real LSW [address] [place] [address] [phone] 07/08/2020 Home Visit [facility] Rema Real LSW [address] [place] [address] [phone] 07/10/2020 Office Visit [facility]opedics [facility]ack Teague, DO [facility] [place] [address] [phone] 07/11/2020 Imaging Radiology 07/17/2020 Home Visit [facility] Vera Capellan RN [facility] [place] [address] [phone] 07/29/2020 Telemedicine Pulmonary Celsa Tafoya CRNP [address] [facility] [place] [address] [phone] 08/06/2020 [facility] [place] [address] 08/07/2020 Home Visit Family Medicine Magaly Morales, Community Health Music Sound Light Technician [address] [place] [address] [phone] 08/22/2020 Office Visit Nephrology Gia White MD [address] [place], [place] [id number] 09/30/2020 Office Visit Dermatology Apple Kaminski MD [address] [place] [address] [phone] 11/13/2020 Office Visit Family Medicine Kevin Whiteside, [facility] [place] [address] [phone] 11/27/2020 Office Visit Pulmonary Celsa Tafoya CRNP [facility] [place] [address] [phone] 02/02/2021 Office Visit Cardiology Rey Woodall MD [address] [facility] [place] [address] [phone] Health Maintenance Due Date Last Done Comments [...] Documents on File Type Date Recorded Patient Pet Care Attendant Expl 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
--- OUTSIDE RECORDS SUMMARY | 2023-06-01 05:21 | External Medical Summary | Summary of Care ---
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, NYHA class 1 and CKD stage 3 (HCC) Allergies Active Allergy Reactions Severity Noted Date Comments Pollen 05/18/2019 Heparin 09/04/2009 Heparin Induced Thrombocytopenia Empagliflozin Other (Please comment) Medium 05/17/2018 3 yeast infections in 6 weeks after starting Morphine And Related 09/16/1997 Hallucinations Tetanus Toxoid Other (Please comment) 06/15/2011 Passed out documented as of this encounter (statuses as of 05/15/2020) Medications Medication Sig Dispensed Refills Start Date [...] times daily 180 Each 5 08/01/2018 Active Glucose Blood (ACCU-CHEK HARRIS PLUS) STRP Test sugar 3-4 times a day. 400 Strip 3 08/30/2018 Active Blood Glucose Monitoring Suppl (Bundle ULTRA 2) w/Device KIT Use to test BG values 1 Kit 0 01/26/2019 Active clobetasol propionate (TEMOVATE) 0.05 % ointmentIndications: Irritant contact dermatitis, unspecified trigger Apply topically to affected area 2 times a day. To affected area for up to two weeks. 60 g 1 02/13/2019 Active Insulin Pen Needle (BD PEN NEEDLE [...] as directed 400 Each 3 12/18/2019 Active Dulaglutide (TRULICITY) 1.5 MG/0.5ML SOPNIndications:DM type 2 nursing care encounter (HCC),Uncontrolled type 2 diabetes mellitus with stage 3 chronic kidney disease, with long-term current use of insulin ([facility]) Inject 1.5 mg under the skin once a week. 15 mL 3 12/18/2019 Active Nortriptyline HCl (PAMELOR) 50 MG CapsuleIndications:F ibromyalgia Take 1 Cap by mouth at bedtime. 90 Cap 3 12/18/2019 Active gabapentin (NEURONTIN) 300 MG CapsuleIndications:T ype 2 diabetes mellitus with hemoglobin A1c goal of 7.0%-8.0% ([facility]) Take 1 Cap by mouth 3 times a day. 270 Cap 3 12/18/2019 Active insulin aspart (INSULIN [...] mouth daily. 90 Tab 3 12/18/2019 Active Glucose Blood (ONETOUCH ULTRA BLUE) STRP Check sugars 3-4 times daily 400 Strip 3 12/18/2019 Active traZODone (DESYREL) 50 MG Tablet Take 1 Tab by mouth at bedtime. 90 Tab 3 12/18/2019 Active omeprazole (PRILOSEC) 20 MG CPDR Take 1 Cap by mouth daily. 90 Cap 3 12/18/2019 Active insulin aspart (INSULIN ASPART) 100 UNIT/ML injection NOVOLOG Vial- USE IN INSULIN PUMP UP TO 200 UNITS PER DAY 10 mL 0 01/17/2020 Active colchicine 0.6 MG TabletIndications:Le ukocytoclastic vasculitis (HCC) Take 1/2 tab daily 45 Tab 1 01/31/2020 Active metolazone (ZAROXOLYN) 2.5 MG Tablet Take as directed by physician 5 Tab 0 02/26/2020 Active Additional Information Patient not taking. Reported on 05/08/2020 2:56 PM furosemide (LASIX) 40 MG TabletIndications:Ch ronic diastolic congestive heart failure (HCC) Take 2 Tabs by mouth daily. 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 60 Tab 0 05/08/2020 Active documented as of this encounter (statuses as of 05/15/2020) Active Problems Problem Noted Date Uncontrolled type [...] 10/14/2014 Overview: ICD-10 update of inactive term [place] filter in place 08/19/2014 History of pulmonary [...] as of this encounter (statuses as of 05/15/2020) Resolved Problems Problem Noted Date Resolved Date [...] as of this encounter (statuses as of 05/15/2020) Immunizations Name Administration Dates Next Due Pneumococcal [...] have Coronavirus / COVID-19? No / Unsure 05/15/2020 11:14 AM EDT documented as of this encounter Last Filed Vital Signs Vital Sign Reading Time Taken Comments Blood Pressure 110/60 05/15/2020 11:21 AM EDT Pulse 89 05/15/2020 11:21 AM EDT Temperature 36.3 C (97.4 F) 05/15/2020 11:21 AM E DT Respiratory Rate 20 05/15/2020 11:21 AM EDT Oxygen Saturation 91% 05/15/2020 11:21 AM EDT Inhaled Oxygen Concentration - - Weight - - Height - - Body Mass Index - - documented in this encounter Progress Notes * Magaly Morales, Community Health Boatswain'S Mate - 05/15/2020 11:14 AM EDT [facility] Boatswain'S Mate Visit Date: 05/15/2020 Time: 11:14 AM Name: Stephanie Camp : 1955 Source of Information: Patient Vitals: Vital signs completed: Yes, vital signs within normal range. BP 110/60 | Pulse 89 | Temp 97.4 | Resp 20 | SaO2 91% | LMP 03/11/2003 Condition Changes: Changes in health or social status since last visit: Recevedshingels shot The patient has new concerns since last visit: No Progress towards goals since last visit: Going to see STEVE trivedi For an appointment Medications: Medication review completed? No, no concerns . Does the patient have barriers to medication adherence? No. Telehealth: This is a telehealth visit: No. Symptoms Surveys and Evaluations: [facility] completed this visit: No Home Safety The patient has concerns related to housing: No Exterior of the home: The steps are even and in good repair: Yes Snow/ice removal assistance available: Yes Interior of the home: If durable medical equipment is used, halls and doorways easy to navigate: Yes, walker There are trip hazards in the home: Yes, cats There are signs of rodent/insect infestation: No There are working smoke detectors: Yes Bathroom: Grab bars are needed: No The patient reports needing help getting on and off the toilet: No Bedroom: There is a medical alert or phone near the bed: Yes, phone The walkway between the bedroom and bathroom is well lit: No Plan: Notified Provider/Air Export Logistics Managerjob change crew member in condition Follow Up: Patient encouraged to call the intake phone number for all urgent but not emergent issues. Scheduled to follow up with patient as needed . Patient aware of CM appointment [facility] 05/15/2020 11:14 AM documented in this encounter Plan of Treatment Upcoming Encounters Date Type Specialty Care Team Description 05/21/2020 Office Visit Pain Management Raj Ahn DO [address] [place] [address] [phone] 05/28/2020 Office Visit Cardiology Marjorie Powell PA-C [address] [place] [address] [phone] 06/03/2020 [facility] [address] [phone] 06/03/2020 [facility] Vera Capellan RN [address] [facility] [place] [address] [phone] 06/10/2020 [facility] Visit [facility] Rema Real LSW [address] [facility] [place] [address] [phone] 06/25/2020 Office Visit Pharmacy [facility] [place] [address] [facility] [place] [address] 06/26/2020 Home Visit Family Medicine Magaly Morales, Community Health Boatswain'S Mate [address] [place] [address] [phone] 07/10/2020 Office Visit Orthopedics Zack Teague DO [address] [facility] [place] [address] [phone] 07/11/2020 Imaging Radiology 08/22/2020 Office Visit Nephrology Gia White MD [address] [facility] [place] [address] [phone] 11/13/2020 Office Visit Family Medicine Kevin Whiteside DO [address] [place] [address] [phone] 11/27/2020 Office Visit Pulmonary Celsa Tafoya CRNP [address] [facility] [place] [address] [phone] Health Maintenance Due Date Last Done Comments [...] on File Type Date Recorded Patient Material Processor Expl 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
--- OUTSIDE RECORDS SUMMARY | 2023-06-01 05:21 | External Medical Summary | Summary of Care ---
Author Name Unknown Organization [place] [address] Care Team Providers Care Accredited Legal Secretary Name Role Phone Whiteside Kevin Ocampomelinda Primary Care Provider Reason for Visit * Reason Comments Medication Refill Encounter Details Date Type Department Care Team Description 05/28/2020 Refill Cardiology, [facility] [address] [place] [address] Dimitri Miles MD 132 [facility] [place] [address] Chronic diastolic congestive heart failure (HCC) Allergies Active Allergy Reactions Severity Noted Date Comments Pollen 05/18/2019 Heparin 09/04/2009 Heparin Induced Thrombocytopenia Empagliflozin Other (Please comment) Medium 05/17/2018 3 yeast infections in 6 weeks after starting Morphine And Related 09/16/1997 Hallucinations Tetanus Toxoid Other (Please comment) 06/15/2011 Passed out documented as of this encounter (statuses as of 05/28/2020) Medications Medication Sig Dispensed Refills Start Date End Date Status docusate sodium (STOOL SOFTENER) 100 MG Capsule Take 100 mg by mouth 2 times a day as needed for Constipation. 0 Active cyclobenzaprine (FLEXERIL) 10 MG Tablet TAKE ONE TABLET BY MOUTH AT BEDTIME NEEDED FOR MUSCLE SPASM 90 Tab 2 08/01/2018 Active Additional Information Patient not taking. Reported on 05/26/2020 9:24 AM ONETOUCH DELICA LANCETS 33G MISC Check blood sugars 3-4 times daily 180 Each 5 08/01/2018 Active clobetasol propionate (TEMOVATE) 0.05 % ointmentIndications :Irritant contact dermatitis, unspecified trigger Apply topically to [...] mL 0 01/17/2020 Active colchicine 0.6 MG TabletIndications:L eukocytoclastic vasculitis [...] 30 mL 5 04/02/2020 Active DIURETIC TITRATION PLANIndications:Chr onic diastolic congestive heart failure (HCC) If no improvement on day 3, contact heart failure managing provider. 1 Each 0 04/08/2020 Active dicyclomine (BENTYL) 20 MG Tablet Take 1 Tab by mouth 4 times a day as needed for Pain, Mild. For abdominal pain 120 Tab 11 05/06/2020 Active traMADol (ULTRAM) 50 MG TabletIndications:C hronic [...] 0 05/08/2020 Active clonazePAM (KLONOPIN) 0.5 MG TabletIndications:A nxiety state Take 1 Tab by mouth 2 times a day. 60 Tab 0 05/08/2020 Active gabapentin (NEURONTIN) 300 MG CapsuleIndications: Type 2 diabetes mellitus with hemoglobin A1c goal of 7.0%-8.0% ([facility]) TAKE ONE CAPSULE BY MOUTH THREE TIMES DAILY 270 Cap 0 05/20/2020 Active Blood Glucose Monitoring Suppl (Pluristem TherapeuticsTOUCH ULTRA 2) w/Device KIT Use to [...] mouth daily. 180 Tab 3 05/28/2020 Active furosemide (LASIX) 40 MG TabletIndications:C hronic diastolic congestive heart failure (HCC) Take 2 Tabs by mouth daily. 180 Tab 3 02/26/2020 05/28/20 20 Discontinu ed(Refill) documented as of this encounter (statuses as of 05/28/2020) Active Problems Problem Noted Date Uncontrolled type [...] 10/14/2014 Overview: ICD-10 update of inactive term [place] filter in place 08/19/2014 History of pulmonary [...] as of this encounter (statuses as of 05/28/2020) Resolved Problems Problem Noted Date Resolved Date [...] as of this encounter (statuses as of 05/28/2020) Immunizations Name Administration Dates Next Due Pneumococcal [...] have Coronavirus / COVID-19? No / Unsure 05/26/2020 9:06 AM EDT documented as of this encounter Miscellaneous Notes * Telephone Encounter - Dimitri Miles MD - 05/28/2020 12:41 PM EDT Signed Prescriptions: Disp Refills furosemide (LASIX) 40 MG Tablet 180 Tab3 Sig: Take 2 Tabs by mouth daily. Authorizing Provider: DIMITRI MILES * Telephone Encounter - Ngozi Morales [facility] - 05/28/2020 11:19 AM EDT Stephanie Camp is requesting a refill of FUROSEMIDE from our mail order facility. Pended a new order for a 90 day supply. If appropriate, please approve and send to [facility], [place]. Thank you. Ngozi Morales, PharmD [facility] Order Pharmacist 05/28/20 documented in this encounter Plan of Treatment Upcoming Encounters Date Type Specialty Care Team Description 05/28/2020 Office Visit Cardiology Marjorie Powell, PA-C [address] [facility] [place] [address] [phone] 06/03/2020 Office Visit Dermatology Apple Kaminski MD [address] [place] [address] [phone] 06/05/2020 [facility] Visit [facility] Vera Capellan RN [address] [facility] [place] [address] [phone] 06/10/2020 Home Visit [facility] Rema Real LSW [address] [facility] [place] [address] [phone] 06/25/2020 Office Visit Pharmacy [facility] [place] [address] [place] [address] 06/26/2020 Home Visit Family Medicine Magaly Morales, Community [facility] [employer] [address] [place] [address] [phone] 07/10/2020 Office Visit Orthopedics Zack Teague DO [address] [place] [address] [phone] 07/11/2020 Imaging Radiology 08/22/2020 Office Visit Nephrology Gia White MD 21 [facility] [place] [address] [phone] 11/13/2020 Office Visit Family Medicine Kevin Whiteside DO [address] [place] [address] [phone] 11/27/2020 Office Visit Pulmonary Celsa Tafoya CRNP [address] [place] [address] [phone] Health Maintenance Due Date Last Done Comments [...] on File Type Date Recorded Patient Yard Switcher Expl 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
--- OUTSIDE RECORDS SUMMARY | 2023-06-01 05:21 | External Medical Summary | Summary of Care ---
Author Name Unknown Organization [place] [address] Care Team Providers Care Group Underwriter Name Role Phone Migue Whiteside DO Primary Care Provider Reason for Visit * Reason Comments Medication Refill Encounter Details Date Type Department Care Team Description 05/21/2020 Refill Family Practice [facility] [address] [place] [id number] Migue Whiteside DO [address] [facility] [place] [address] [phone] Allergies Active Allergy Reactions Severity Noted Date Comments Pollen 05/18/2019 Heparin 09/04/2009 Heparin Induced Thrombocytopenia Empagliflozin Other (Please comment) Medium 05/17/2018 3 yeast infections in 6 weeks after starting Morphine And Related 09/16/1997 Hallucinations Tetanus Toxoid Other (Please comment) 06/15/2011 Passed out documented as of this encounter (statuses as of 05/22/2020) Medications Medication Sig Dispensed Refills Start Date [...] long-term current use of insulin ([facility]) Inject 1.5 mg under the skin once [...] 05/08/2020 2:56 PM furosemide (LASIX) 40 MG TabletIndications:C hronic diastolic [...] daily, E11.9 400 Strip 3 05/22/2020 Active Glucose Blood (ACCU-CHEK HARRIS PLUS) STRP Test sugar 3-4 times a day. 400 Strip 3 08/30/2018 05/22/20 20 Discontinu ed(Refill) Glucose Blood (ONETOUCH ULTRA BLUE) STRP Check sugars 3-4 times daily 400 Strip 3 12/18/2019 05/21/20 20 Discontinu ed(Refill) documented as of this encounter (statuses as of 05/22/2020) Active Problems Problem Noted Date Uncontrolled type [...] 10/14/2014 Overview: ICD-10 update of inactive term [place] filter in place 08/19/2014 History of pulmonary [...] as of this encounter (statuses as of 05/22/2020) Resolved Problems Problem Noted Date Resolved Date [...] as of this encounter (statuses as of 05/22/2020) Immunizations Name Administration Dates Next Due Pneumococcal [...] have Coronavirus / COVID-19? No / Unsure 05/21/2020 12:52 PM EDT documented as of this encounter Miscellaneous Notes * Telephone Encounter - Damián [facility] - 05/22/2020 10:23 AM EDT Signed Prescriptions: Disp Refills Glucose Blood (ONETOUCH ULTRA BLUE) STRP 400 St*3 Sig: Check sugars 3-4 times daily, E11.9Authorizing Provider: MIGUE WHITESIDE User: DAMIÁN CRUZ * Telephone Encounter - Marilee Ibarra CPhT - 05/21/2020 11:10 AM EDT Please reroute RX to [facility] [id number] Pending Prescriptions: Disp Refills Glucose Blood (ONETOUCH ULTRA BLUE) STRP 400 St*3 Sig: Check sugars 3-4 times daily Last Office/Telemedicine Visit: 05/08/2020 Next Office Visit: 11/13/2020 Scheduled Provider(s): Migue Whiteside, If no future appointments scheduled, and last appointment is greater than a year ago, please schedule patient for a follow-up appointment Last date the medication was ordered: [id number] Marilee Ly Coating Manager Pharmacy Refill Call Center 05/21/2020,11:11 AM Patient Phone Numbers Labs: Lab Results Component Value Date/Time CREAT 2.0 (H) 05/06/2020 08:46 AM POTASSIUM 4.0 05/06/2020 08:46 AM TSH 5.35 (H) 05/06/2020 08:46 AM LDLCALC UNINTERPRETABLE RESULT 03/14/2019 01:54 PM LDLDIRECT 109 07/14/2017 12:35 PM ALT 27 05/06/2020 08:46 AM HGBA1C 7.3 (H) 01/23/2020 11:11 AM documented in this encounter Plan of Treatment Upcoming Encounters Date Type Specialty Care Team Description 05/26/2020 Hospital Encounter Surgery Raj Ahn DO [address] [place] [address] [phone] 05/26/2020 Surgery Surgery Raj Ahn DO [address] [place] [address] [phone] INJECTION SPINE LUMBAR OR SACRAL 05/28/2020 Office Visit Cardiology Marjorie Powell PA-C [address] [place] [address] [phone] 06/03/2020 Office Visit Dermatology Apple Kaminski MD [address] [facility] [place] [address] [phone] 06/03/2020 Home Visit [facility] Vera Capellan, RN [address] [facility] [place] [address] [phone] 06/10/2020 Home Visit [facility] Rema Real PUBLIC SPEAKING TEACHER [address] [facility] [place] [address] [phone] 06/25/2020 Office Visit Pharmacy [facility] Jeramie [address] [facility] [place] [address] 06/26/2020 Home Visit Family Medicine Magaly Morales, Community Health Risk Reduction Counselor [address] [place] [address] [phone] 07/10/2020 Office Visit Orthopedics Zack Teague DO [address] [facility] [place] [address] [phone] 07/11/2020 Imaging Radiology 08/22/2020 Office Visit Nephrology Gia White MD [address] [place] [address] [phone] 11/13/2020 Office Visit Family Medicine Migue Whiteside, [address] [place] [address] [phone] 11/27/2020 Office Visit Pulmonary [facility] CR[facility] [place] [address] [phone] Health Maintenance Due Date Last Done Comments [...] on File Type Date Recorded Patient Table Maker Expl 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
--- OUTSIDE RECORDS SUMMARY | 2023-06-01 05:21 | External Medical Summary | Summary of Care ---
Author Name Unknown Organization [place] [address] Care Team Providers [facility] Sales Name Role Phone Kevin Whiteside DO Primary Care Provider Reason for Visit * Reason Comments Back Pain * Evaluate & Treat - Unlimited Visits (Within 10 days (routine)) Status Reason Specialty Diagnoses / Procedures Referred By Contact Referred To Contact Authorized Specialty Services Required Pain Management Diagnoses Lumbar radiculopathy Kevin Whiteside DO [address] [facility] [place] [address] Encounter Details Date Type Department Care Team Description 05/21/2020 Office Visit [facility], [facility] [address] [place] [address] Raj Ahn, [address] [place] [address] [phone] Lumbar radicular pain*; Spinal stenosis of lumbar region with neurogenic claudication Allergies Active Allergy Reactions Severity Noted Date Comments Pollen 05/18/2019 Heparin 09/04/2009 Heparin Induced Thrombocytopenia Empagliflozin Other (Please comment) Medium 05/17/2018 3 yeast infections in 6 weeks after starting Morphine And Related 09/16/1997 Hallucinations Tetanus Toxoid Other (Please comment) 06/15/2011 Passed out documented as of this encounter (statuses as of 05/21/2020) Medications Medication Sig Dispensed Refills Start Date [...] a day. 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 diastolic congestive heart failure (HCC) [...] BG values 1 Kit 0 05/20/2020 Active documented as of this encounter (statuses as of 05/21/2020) Active Problems Problem Noted Date Uncontrolled type [...] 10/14/2014 Overview: ICD-10 update of inactive term [place] filter in place 08/19/2014 History of pulmonary [...] as of this encounter (statuses as of 05/21/2020) Resolved Problems Problem Noted Date Resolved Date [...] as of this encounter (statuses as of 05/21/2020) Immunizations Name Administration Dates Next Due Pneumococcal [...] PM EDT documented as of this encounter Last Filed Vital Signs Vital Sign Reading Time Taken Comments Blood Pressure - - Pulse - - Temperature 36.6 C (97.8 F) 05/21/2020 1:02 PM ED T Respiratory Rate - - Oxygen Saturation - - Inhaled Oxygen Concentration - - Weight - - Height - - Body Mass Index - - documented in this encounter Progress Notes * Davontesinthaddeus, Raj Nolen, DO - 05/21/2020 1:26 PM EDT GENERAL HISTORY & PHYSICAL EXAMINATION - Anesthesia and Pain Service Name: Stephanie Camp Location: [facility] REFERRING PHYSICIAN: Kevin Whiteside, Thank you for referring Stephanie Camp. CHIEF COMPLAINT: Low back/leg pain HPI: Stephanie Camp is a 65 year old female who presents for consultation at the request of Dr. Whiteside, regarding the several year history of increasing pain in the bilateral low back and buttock area with radiation into the lower extremities. Pain is much worse with standing and ambulation and improved with forward flexion against a walker or with sitting. She denies bowel bladder dysfunction or obvious motor weakness. She she denies preceding trauma. She went through physical is therapy for 6 weeks within the past year without noticeable improvement. She has tried a variety medications including muscle relaxants as well as ongoing use of Cymbalta, gabapentin and tramadol without significant improvement. MRI of the lumbar spine was recently completed and I did review report films with the patient. His multilevel to central neuroforaminal stenosis. There is a right-sided the foraminal protrusion L3-L4 with moderate to marked lumbar spinal stenosis. There is moderate central stenosis at L4-L5 from facet hypertrophy the leg Amedisys hypertrophy as well as grade 1 spondylolisthesis. PAST MEDICAL HISTORY: Past Medical History: Diagnosis Date ELSIE (acute kidney injury) ([facility]) 06/12/2018 Allergic rhinitis due to other allergen Backache Diverticulosis of colon 01/28/06 DM type 2, not at goal ([facility]) ELLIE (generalized anxiety disorder) 09/13/2009 Goiter [place] filter in place 08/19/2014 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[facility]) 08/22/2009 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[facility]) 06/12/2018 History of pulmonary embolus (PE) 07/16/2014 HTN, goal below 140/90 Impetigo 09/27/2018 Obesity, BMI not known Perforation of intestine ([facility]) 1996 COLON -- 1996 Pneumonia in aspergillosis(484.6) 09/14/2009 Spontaneous pneumothorax 09/14/2009 Statin intolerance 07/16/2014 Type 2 diabetes mellitus with hemoglobin A1c goal of 7.0%-8.0% ([facility]) 10/14/2014 ICD-10 update of inactive term Vaginal karmen 07/13/2018 PAST SURGICAL HISTORY: Past Surgical History: Procedure Laterality Date ARTHROPLASTY KNEE TOTAL Right 07/24/14 R COLONOSCOPY, DIAGNOSTIC (RECTUM) 02/18/2016 normal, repeat 10 yrs/[facility] COLONOSCOPY, GI REFERRAL OP 01/28/06 diverticulosis--repeat 10 years INCISION OF [place], PLANNED 06/03/2011 TRACHEOSTOMY PLANNED performed by DANNY HOLDER at [facility] KNEE ARTHROSCOPY/DEBRIDEMENT 07/[address] PERMANENT GASTROSTOMY TUBE 09/06/09 GASTROSTOMY WITH CONSTUCTION GASTRIC TUBE performed by AMADOU NUNEZ at [facility] REMOVAL OF THYROID GLAND 06/15/2011 THYROIDECTOMY INCLUDING SUBSTERNAL THYROID CERVICAL APPROACH performed by DANNY HOLDER at [facility] REMOVE GALLBLADDER 09/06/09 CHOLECYSTECTOMY performed by AMADOU NUNEZ at [facility] REPAIR RECURRENT INCISIONAL HERNIA 1998 REVISION OF COLOSTOMY, SIMPLE 1998 SUTURE, LARGE INTESTINE W/COLOSTOMY 1996 perforation R colon with colostomy VENA CAVA FILTER/LIGATION/CLIP 08/19/09 Frank filter placement through the right femoral 08/19/[address] Lerma at [facility] FAMILY HISTORY: Family History Problem Relation Age of Onset Cancer Father lung - age 74 (smoker) Cancer Mother liver - age 45 Heart Disorder Brother age 45 - possible tumor Diabetes Grandmother (Paternal) Cancer Grandfather (Paternal) bone ca - in 70's SOCIAL HISTORY: Social History Tobacco Use Smoking status: Former Smoker Packs/day: 1.00 Years: 15.00 Pack years: 15.00 Last attempt to quit: 08/26/1997 Years since quittin.7 Smokeless tobacco: Never Used Substance Use Topics Alcohol use: Not Currently Comment: rare Drug use: No CURRENT MEDICATIONS: Note that discontinued and completed medications (per the MAR) continue to display for 24 hours. Ordered medications to be given in the future also display. Current Outpatient Medications Medication Sig Dispense Refill gabapentin (NEURONTIN) 300 MG Capsule TAKE ONE CAPSULE BY MOUTH THREE TIMES DAILY 270 Cap 0 clonazePAM (KLONOPIN) 0.5 MG Tablet Take 1 Tab by mouth 2 times a day. 60 Tab 0 dicyclomine (BENTYL) 20 MG Tablet Take 1 Tab by mouth 4 times a day as needed for Pain, Mild. For abdominal pain 120 Tab 11 traMADol (ULTRAM) 50 MG Tablet Take 1 Tab by mouth every 8 hours as needed for Pain, Severe. 90Tab 0 insulin aspart (NOVOLOG) 100 UNIT/ML injection use [...] BREAKFAST OR OTHER MEDS 90 Tab 1 furosemide (LASIX) 40 MG Tablet Take 2 Tabs by mouth daily. 180 Tab 3 potassium chloride ER 10 MEQ TBCR Take one 3 days per week 30 Tab 3 colchicine 0.6 MG Tablet Take 1/2 tab daily 45 Tab 1 insulin aspart (INSULIN ASPART) 100 UNIT/ML injection NOVOLOG Vial- USE IN INSULIN PUMP UP TO 200 UNITS PER DAY 10 mL 0 Dulaglutide (TRULICITY) 1.5 MG/0.5ML SOPN Inject 1.5 mg under the skin once a week. 15 mL 3 insulin aspart (INSULIN ASPART) 100 UNIT/ML [...] by mouth at bedtime. 90 Tab 3 insulin aspart (NOVOLOG) 100 UNIT/ML SOPN Inject 25 Units under the skin three times a day withmeals. 5 Pre-filled Pen Syringe Dosing Unit 1 cyclobenzaprine (FLEXERIL) 10 MG Tablet TAKE ONE TABLET BY MOUTH AT BEDTIME NEEDED FOR MUSCLE SPASM 90 Tab 2 docusate sodium (STOOL SOFTENER) 100 MG Capsule Take 100 mg by mouth 2 times a day as needed for Constipation. Blood Glucose Monitoring Suppl (ONETOUCH ULTRA 2) [...] MG Tablet Take as directed by physician (Patient not taking: Reported on05/08/2020) 5 Tab 0 ACCU-CHEK SOFTCLIX LANCETS MISC Test blood sugar three or four times daily as directed 400 Each 3 Glucose Blood (ONETOUCH ULTRA BLUE) STRP Check sugars 3-4 times daily 400 Strip 3 oxygen GAS 2 LPM bled through CPAP 11 cwp during all periods of sleep and 2 LPM via NC with exertion. Insulin Pen Needle (BD PEN NEEDLE SHORT U/F) 31G X 8 MM Use 5 times daily with insulin 200 Box Dosing Unit 11 clobetasol propionate (TEMOVATE) 0.05 % ointment Apply topically to affected area 2 times a day. Toaffected area for up to two weeks. 60 g 1 Glucose Blood (ACCU-CHEK HARRIS PLUS) STRP Test sugar 3-4 times a day. 400 Strip 3 ONETOUCH DELICA LANCETS 33G MISC Check blood sugars 3-4 times daily 180 Each 5 ALLERGIES: Jardiance [empagliflozin]; Hay fever [pollen]; Heparin; Morphine and related; and Tetanus toxoid ROS: Constitutional: Negative for fatigue, fever, appetite change, unexplained weight loss, insomnia. Eyes: Negative for abnormal vision, dryness, pain. ENT: Negative for hearing loss, tinnitus, vertigo, dizziness, sore throat, dysphagia. Respiratory: Negative for cough, sputum production, shortness of breath, dyspnea. Musculoskeletal:Positive for low back/leg pain Neurological: Negative for headaches, fainting, seizures. Psychiatric: Negative for anxiety, depression, hallucinations, suicidal thoughts. Genitourinary: Negative for dysuria, urinary frequency, urinary urgency,hematuria. Hematologic/ Lymphatic: Negative for easy bleeding, bruising, lymphadenopathy. Gastrointestinal: Negative for abdominal pain, nausea, vomiting, constipation, diarrhea, cramping, heart burn, fecal incontinence. Cardiovascular: Negative for chest pain, palpitations, ankle swelling, orthopnea. PHYSICAL EXAMINATION: Most Recent Vital Signs: Filed Vitals: 05/21/20 1302 Temp: 36.6 C (97.8 F) General Appearance: Patient appears to be about stated age, pleasant and cooperative with normal affect. HEENT: head normocephalic, pupils equal round and reactive to light and accommodation, EOMI, hearing intact and equal bilaterally and nose clear, throat normal Heart: regular rate and rhythm Lungs: Clear to Auscultation MS: She can stand ambulate with the use of a cane. She has +5/5 motor function lower extremities. There are no gross sensory deficits noted. She does not have pain with range of motion testing in hips. There is no pain with straight leg raising. There has +1/4 Achilles and patellar reflexes. She has some modest tenderness over the sacroiliac joints bilaterally as well as lumbar pain with extension facet loading bilaterally. There are no lumbar surgical incisions. IMAGING: EXAM MRI L SPINE WO CONTRAST-09/28/2018 HISTORY Radiculopathy COMPARISON None TECHNIQUE Multiplanar, multisequence magnetic resonance imaging of the lumbar spine was performed without intravenous contrast. FINDINGS There are 5 lumbar type vertebrae. Correlation with this numbering scheme is recommended prior to any planned surgical intervention. Lumbar vertebrae appear maintained in height. There is minimal retrolisthesis of L of L2 and L2 on L3. There is minimal anterolisthesis of L4 on L5. Multilevel disc desiccation is present. Loss of disc height is most pronounced at L3-4. The distal spinal cord is unremarkable. The right kidney appears decreased in size. T12-L1: No significant canal or foraminal narrowing. L1-L2: A broad-based disc bulge and facet arthropathy contribute to mild canal stenosis and mild bilateral foraminal narrowing. L2-L3: A broad-based disc bulge with an asymmetric left foraminal component and facet arthropathy contribute to moderate canal stenosis and moderate bilateral foraminal narrowing. L3-L4: A broad-based disc bulge and facet arthropathy contribute to moderate canal stenosis and moderate/ severe bilateral foraminal narrowing. L4-L5: A broad-based disc bulge and advanced facet arthropathy contribute to mild canal stenosis and moderate bilateral foraminal narrowing L5-S1: A broad-based disc bulge and facet arthropathy are present without significant canal stenosis. There is moderate bilateral foraminal narrowing. IMPRESSION IMPRESSION 1. Multilevel degenerative changes are noted throughout the lumbar spine, with moderate spinal canal stenosis present at L2-3 and L3-4. 2. Neural foraminal narrowing is most pronounced at L3-4 bilaterally, (moderate/severe). 3. There is moderate foraminal narrowing at L2-3, L4-5, L5-S1. ASSESSMENT: Lumbar radicular pain Lumbar spinal stenosis PLAN: She certainly has enough central and neuroforaminal stenosis to cause back and lower extremity symptoms. Since she has otherwise not improved adequately with conservative treatment, I did discuss useof epidural steroid injection. Procedural risks including bleeding, infection, nerve or spinal cordinjury, worsening pain or steroid side effects were reviewed and accepted. She would like to proceed will be scheduled for caudal epidural steroid injection pending insurance approval. Raj Ahn DO 05/21/2020 documented in this encounter Nursing Notes * Telma Sandoval LPN - 05/21/2020 1:04 PM EDT Patient reports low back and b/l lower ext pain for many years Did PT last year-slight improvement Last MRI was 09/2018 documented in this encounter Plan of Treatment Upcoming Encounters Date Type Specialty Care Team Description 05/28/2020 Office Visit Cardiology Marjorie Powell PA-C [address] [place] [address] [phone] 06/03/2020 Office Visit Dermatology Apple Kaminski MD [address] [place], [place] [address] [address] [phone] 06/03/2020 Home Visit [facility] Vera Capellan RN [address] [place] [address] [phone] 06/10/2020 Home Visit [facility] at Home Rema Real LSW [address] [place] [address] [phone] 06/25/2020 Office Visit Pharmacy [facility] Jeramie [address] [place] [address] 06/26/2020 Home Visit Family Medicine Magaly Morales, Community Health [employer] [address] [place] [address] [phone] 07/10/2020 Office Visit Orthopedics Zack Teague, [address] [facility] [place] [address] [phone] 07/11/2020 Imaging Radiology 08/22/2020 Office Visit Nephrology Gia White MD [address] [facility] [place] [address] [phone] 11/13/2020 Office Visit Family Medicine Kevin Whiteside, [address] [facility] [place] [address] [phone] 11/27/2020 Office Visit Pulmonary Celsa Tafoya CRNP [address] [facility] [place] [address] [phone] Scheduled Orders Name Type Priority Associated Diagnoses Orde r Schedule INJECT DX/THER SUBSTANCE INTERLAMINAR LUMBAR/SACRAL W IMAGE GUIDE Procedures Routine Lumbar radicular pain Ordered: 05/21/2020 Health Maintenance Due Date Last Done Comments [...] on File Type Date Recorded Patient First Assist Expl 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
--- OUTSIDE RECORDS SUMMARY | 2023-06-01 05:21 | External Medical Summary | Summary of Care ---
Author Name Unknown Organization [place] [address] Care Team Providers Care New Order Clerk Name Role Phone Whiteside Kevin Ocampomelinda Primary Care Provider Reason for Visit * Reason Comments [facility]: Maintenance Encounter Details Date Type Department Care Team Description 05/27/2020 Telephone [facility], [facility] [address] [place], [place] [id number] Services, Scheduling [address] [place] [address] [facility]: Maintenance Allergies Active Allergy Reactions Severity Noted Date Comments Pollen 05/18/2019 Heparin 09/04/2009 Heparin Induced Thrombocytopenia Empagliflozin Other (Please comment) Medium 05/17/2018 3 yeast infections in 6 weeks after starting Morphine And Related 09/16/1997 Hallucinations Tetanus Toxoid Other (Please comment) 06/15/2011 Passed out documented as of this encounter (statuses as of 05/27/2020) Medications Medication Sig Dispensed Refills Start Date [...] 08/01/2018 Active clobetasol propionate (TEMOVATE) 0.05 % ointmentIndications: [...] of insulin ([facility]) Inject 1.5 mg under the [...] Tab by mouth at bedtime. 90 Tab 12/18/2019 Active omeprazole (PRILOSEC) 20 MG CPDR [...] by physician 5 Tab 0 02/26/2020 Active furosemide (LASIX) 40 MG TabletIndications:Ch ronic [...] 30 mL 5 04/02/2020 Active DIURETIC TITRATION PLANIndications:Pulp Maker zahra diastolic congestive heart failure (HCC) [...] 0 05/20/2020 Active Blood Glucose Monitoring Suppl (Credit SesameTOUCH ULTRA 2) w/Device KIT Use to test BG values 1 Kit 0 05/20/2020 Active Glucose Blood (ONETOUCH ULTRA BLUE) STRP Check sugars 3-4 times daily, E11.9 400 Strip 3 05/22/2020 Active documented as of this encounter (statuses as of 05/27/2020) Active Problems Problem Noted Date Uncontrolled type [...] as of this encounter (statuses as of 05/27/2020) Resolved Problems Problem Noted Date Resolved Date [...] as of this encounter (statuses as of 05/27/2020) Immunizations Name Administration Dates Next Due Pneumococcal [...] encounter Miscellaneous Notes * Telephone Encounter - Nohemi Hernandez OSA - 05/27/2020 10:40 AM EDT Inbound call from patient requesting to reschedule nurse visit with Vera Capellan RN, on 06/03/20. SCHEDULED June 05 @ 9 AM with Vera Capellan RN Patient in agreement with visit. ELISSA Degroot documented in this encounter Plan of Treatment Upcoming Encounters Date Type Specialty Care Team Description 05/28/2020 Office Visit Cardiology Marjorie Powell PA-C [address] [place] [address] [phone] 06/03/2020 Office Visit Dermatology Apple Kaminski MD [address] [place], [place] [address] [address] [phone] 06/05/2020 Home Visit [facility] Vera Capellan RN [address] [place] [address] [phone] 06/10/2020 Home Visit [facility] Rema Real LSW [address] [facility] [place] [address] [phone] 06/25/2020 Office Visit Pharmacy [facility] [place] [address] [facility] [place] [address] 06/26/2020 Home Visit Family Medicine Magaly Morales, Community Health Cost Controller [address] [place] [address] [phone] 07/10/2020 Office Visit Orthopedics Zack Teague, [address] [facility] [place] [address] [phone] 07/11/2020 Imaging Radiology 08/22/2020 Office Visit Nephrology Gia White MD [address] [facility] [address] [phone] 11/13/2020 Office Visit Family Medicine Kevin Whiteside, [address] [facility] [place] [address] [phone] 11/27/2020 Office Visit Pulmonary Celsa Tafoya CRNP [address] [facility] [place] [address] [phone] Health Maintenance Due Date Last Done Comments [...] Documents on File Type Date Recorded 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
--- OUTSIDE RECORDS SUMMARY | 2023-06-01 05:21 | External Medical Summary | Summary of Care ---
Author Name Unknown Organization [place] [address] Care Team Providers Care Specialty Finishing Utility Person Name Role Phone Migue Whiteside DO Primary Care Provider Reason for Visit * Reason Comments eRx-Medication Refill Encounter Details Date Type Department Care Team Description 05/19/2020 Refill Family Practice [facility] [address] [facility] [place] [address] Migue Whiteside DO [address] [facility] [place] [address] [phone] Type 2 diabetes mellitus with hemoglobin A1c goal of 7.0%-8.0% ([facility]) Allergies Active Allergy Reactions Severity Noted Date Comments Pollen 05/18/2019 Heparin 09/04/2009 Heparin Induced Thrombocytopenia Empagliflozin Other (Please comment) Medium 05/17/2018 3 yeast infections in 6 weeks after starting Morphine And Related 09/16/1997 Hallucinations Tetanus Toxoid Other (Please comment) 06/15/2011 Passed out documented as of this encounter (statuses as of 05/20/2020) Medications Medication Sig Dispensed Refills Start Date [...] times daily 180 Each 5 8 Active Glucose Blood (ACCU-CHEK HARRIS PLUS) STRP Test sugar 3-4 times a day. 400 Strip 3 8 Active clobetasol propionate (TEMOVATE) 0.05 % ointmentIndication s:Irritant contact dermatitis, unspecified trigger Apply topically to affected area 2 times a day. To affected area for up to two weeks. 60 g 1 9 Active Insulin Pen Needle (BD PEN NEEDLE [...] as directed 400 Each 3 0 Active Dulaglutide (TRULICITY) 1.5 MG/0.5ML SOPNIndications:DM type 2 nursing care encounter (HCC),Uncontrolled type 2 diabetes mellitus with stage 3 chronic kidney disease, with long-term current use of insulin ([facility]) Inject 1.5 mg under the skin once a week. 15 mL 3 0 Active Nortriptyline HCl (PAMELOR) 50 [...] mouth daily. 90 Tab 3 0 Active Glucose Blood (ONETOUCH ULTRA BLUE) STRP Check sugars 3-4 times daily 400 Strip 3 0 Active traZODone (DESYREL) 50 MG Tablet Take 1 Tab by mouth at bedtime. 90 Tab 3 0 Active omeprazole (PRILOSEC) 20 MG CPDR Take 1 Cap by mouth daily. 90 Cap 3 0 Active insulin aspart (INSULIN ASPART) 100 UNIT/ML injection NOVOLOG Vial- USE IN INSULIN PUMP UP TO 200 UNITS PER DAY 10 mL 0 0 Active colchicine 0.6 MG TabletIndications: Leukocytoclastic vasculitis (HCC) Take 1/2 tab daily 45 Tab 1 0 Active metolazone (ZAROXOLYN) 2.5 MG Tablet Take as directed by physician 5 Tab 0 0 Active Additional Information Patient not taking. Reported on 05/08/2020 2:56 PM furosemide (LASIX) 40 MG TabletIndications: Chronic diastolic congestive heart failure (HCC) Take 2 Tabs by mouth daily. 180 Tab 3 0 Active potassium chloride ER 10 [...] 30 mL 5 0 Active DIURETIC TITRATION PLANIndications:Rebecca lynch diastolic congestive heart failure (HCC) If no improvement on day 3, contact heart failure managing provider. 1 Each 0 0 Active dicyclomine (BENTYL) 20 MG Tablet Take 1 Tab by mouth 4 times a day as needed for Pain, Mild. For abdominal pain 120 Tab 11 0 Active traMADol (ULTRAM) 50 MG TabletIndications: Chronic pain [...] in 10/2019 1 Each 0 0 Active clonazePAM (KLONOPIN) 0.5 MG TabletIndications: Anxiety state Take 1 Tab by mouth 2 times a day. 60 Tab 0 0 Active gabapentin (NEURONTIN) 300 MG CapsuleIndications :Type 2 diabetes mellitus with hemoglobin A1c goal of 7.0%-8.0% (HCC) TAKE ONE CAPSULE BY MOUTH THREE TIMES DAILY 270 Cap 0 0 Active Blood Glucose Monitoring Suppl (MYOSTOUCH ULTRA 2) w/Device KIT Use to test BG values 1 Kit 0 9 020 Discontinued(Re fill) gabapentin (NEURONTIN) 300 MG CapsuleIndications :Type 2 diabetes mellitus with hemoglobin A1c goal of 7.0%-8.0% (HCC) Take 1 Cap by mouth 3 times a day. 270 Cap 3 0 020 Discontinued documented as of this encounter (statuses as of 05/20/2020) Active Problems Problem Noted Date Uncontrolled type [...] 10/14/2014 Overview: ICD-10 update of inactive term [place] filter in place 08/19/2014 History of pulmonary [...] as of this encounter (statuses as of 05/20/2020) Resolved Problems Problem Noted Date Resolved Date [...] as of this encounter (statuses as of 05/20/2020) Immunizations Name Administration Dates Next Due Pneumococcal [...] Telephone Encounter - Migue Whiteside DO - 05/20/2020 3:05 PM EDT Signed Prescriptions: Disp Refills gabapentin (NEURONTIN) 300 MG Capsule 270 Cap0 Sig: TAKE ONE CAPSULE BY MOUTH THREE TIMES DAILY Authorizing Provider: MIGUE WHITESIDE * Telephone Encounter - German Dick, [facility] - 05/20/2020 2:42 PM EDT Pending Prescriptions: Disp Refills gabapentin (NEURONTIN) 300 MG Capsule [Pha*270 Cap0 Sig: TAKE ONE CAPSULE BY MOUTH THREE TIMES DAILY * Telephone Encounter - German Dick, [facility] - 05/20/2020 2:42 PM EDT Refill pharmacists currently not authorized to approve refills for this class of medication per refill protocol. Please approve if appropriate. Pending Prescriptions: Disp Refills gabapentin (NEURONTIN) 300 MG Capsule [Pha*270 Cap0 Sig: TAKE ONE CAPSULE BY MOUTH THREE TIMES DAILY Last Office/Telemedicine Visit: 05/08/2020 Next Office Visit: 11/13/2020 Scheduled Provider(s): Migue Whiteside DO If no future appointments scheduled, and last appointment is greater than a year ago, please schedule patient for a follow-up appointment Last date the medication was ordered: Pharmacy: [id number] Is this request for a controlled [...] AM HGBA1C 7.3 (H) 01/23/2020 11:11 AM German Ly Clinical Pharmacist Pharmacy Refill Call Center 05/20/2020, 2:42 PM documented in this encounter Plan of Treatment Upcoming Encounters Date Type Specialty Care Team Description 05/21/2020 Office Visit Pain Management Raj Ahn DO [address] [place] [address] [phone] 05/28/2020 Office Visit Cardiology Marjorie Powell PA-C [address] [place] [address] [phone] 06/03/2020 Office Visit Dermatology Apple Kaminski MD [address] [place] [address], [place] [address] [phone] 06/03/2020 Home Visit [facility] Vera Capellan, LEXI [address] [place] [address] [phone] 06/10/2020 Home Visit [facility] Rema Real LSW [address] [place] [address] [phone] 06/25/2020 Office Visit Pharmacy [facility] [place] [address] [facility] [place] [address] 06/26/2020 Home Visit Family Medicine Magaly Morales, Community [facility] Trade Promotion Analyst [address] [facility] [address] [phone] 07/10/2020 Office Visit Orthopedics Zack Teague, [address] [facility] [place] [address] [phone] 07/11/2020 Imaging Radiology 08/22/2020 Office Visit Nephrology Gia White MD [address] [facility] [place] [address] 11/13/2020 Office Visit Family Medicine Migue Whiteside, 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
--- OUTSIDE RECORDS SUMMARY | 2023-06-01 05:21 | External Medical Summary | Summary of Care ---
Author Name Unknown Organization [place] [address] Care Team Providers Care Remote Broadcast Technician Name Role Phone Kevin Whiteside DO Primary Care Provider Reason for Referral * Evaluate & Treat - Unlimited Visits (Within 10 days (routine)) Status Reason Specialty Diagnoses / Procedures Referred By Contact Referred To Contact Authorized Specialty Services Required Pain Management Diagnoses Lumbar radiculopathy Kevin Whiteside DO [address] [facility] [place] [address] * Evaluate & Treat - Unlimited Visits (Within 10 days (routine)) Status Reason Specialty Diagnoses / Procedures Referred By Contact Referred To Contact Authorized Specialty Services Required Orthopaedic Surgery / Orthopedics Diagnoses Chronic pain of right knee Kevin Whiteside DO [address] [place] [address] Dain Carrillo, DO [address] [place] [address] Reason for Visit * Reason Comments Follow Up 6 month return, pt r eports her pain is her main concern, RLQ, low back, left leg Immunizations Shingrix Encounter Details Date Type Department Care Team Description 05/08/2020 Office Visit Family Practice [facility] [address] [place] [address] Kevin Whiteside DO [address] [facility] [place] [address] [phone] Need for vaccination for zoster*; Morbid obesity due to excess calories ([facility]); Type 2 diabetes mellitus with hemoglobin A1c goal of 7.0%-8.0% ([facility]); Hyperparathyroidism, secondary renal (HCC); Dyslipidemia; Uncontrolled type 2 diabetes mellitus with stage 4 chronic kidney disease, with long-term current use of insulin ([facility]); Body mass index (BMI) of 50.0 to 59.9 in adult ([facility]); 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, NYHA class 1 and CKD stage 3 ([facility]); Frank filter in place; Chronic diastolic congestive heart failure ([facility]); Risk and functional assessment; Chronic pain of right knee; Gastroesophageal reflux disease with esophagitis; Chronic pain syndrome; Lumbar radiculopathy; Anxiety state Allergies Active Allergy Reactions Severity Noted Date Comments Pollen 05/18/2019 Heparin 09/04/2009 Heparin Induced Thrombocytopenia Empagliflozin Other (Please comment) Medium 05/17/2018 3 yeast infections in 6 weeks after starting Morphine And Related 09/16/1997 Hallucinations Tetanus Toxoid Other (Please comment) 06/15/2011 Passed out documented as of this encounter (statuses as of 05/08/2020) Medications Medication Sig Dispensed Refills Start Date [...] 3 08/30/2018 Active Blood Glucose Monitoring Suppl (ONETOUCH ULTRA 2) w/Device KIT Use to test BG values 1 Kit 0 01/26/2019 Active clobetasol propionate (TEMOVATE) 0.05 % ointmentIndications [...] long-term current use of insulin ([facility]) Inject 1.5 mg under the skin once a week. 15 mL 3 12/18/2019 Active Nortriptyline HCl (PAMELOR) 50 MG CapsuleIndications: Fibromyalgia Take 1 Cap by mouth at bedtime. 90 Cap 3 12/18/2019 Active gabapentin (NEURONTIN) 300 MG CapsuleIndications: Type 2 diabetes mellitus with hemoglobin A1c goal of 7.0%-8.0% ([facility]) Take 1 Cap by mouth 3 [...] Check sugars 3-4 times daily 400 Strip 12/18/2019 Active traZODone (DESYREL) 50 MG Tablet Take 1 Tab by mouth at bedtime. 90 Tab 12/18/2019 Active omeprazole (PRILOSEC) 20 MG CPDR Take 1 Cap by mouth daily. 90 Cap 12/18/2019 Active insulin aspart (INSULIN ASPART) 100 [...] a day. 60 Tab 0 05/08/2020 Active clonazePAM (KLONOPIN) 0.5 MG TabletIndications:A nxiety state TAKE ONE TABLET BY MOUTH TWICE DAILY 60 Tab 0 04/16/2020 05/08/20 20 Discontinu ed(Refill) documented as of this encounter (statuses as of 05/08/2020) Active Problems Problem Noted Date Uncontrolled type [...] as of this encounter (statuses as of 05/08/2020) Resolved Problems Problem Noted Date Resolved Date [...] as of this encounter (statuses as of 05/08/2020) Immunizations Name Administration Dates Next Due Pneumococcal [...] have Coronavirus / COVID-19? No / Unsure 05/07/2020 12:09 PM EDT documented as of this encounter Last Filed Vital Signs Vital Sign Reading Time Taken Comments Blood Pressure 130/72 05/08/2020 2:56 PM EDT Pulse 96 05/08/2020 2:56 PM EDT Temperature 36.4 C (97.6 F) 05/08/2020 2:56 PM ED T Respiratory Rate 20 05/08/2020 2:56 PM EDT Oxygen Saturation 93% 05/08/2020 2:56 PM EDT RA Inhaled Oxygen Concentration - - Weight 145.6 kg (321 lb) 05/08/2020 2:56 PM EDT Height - - Body Mass Index 55.1 05/06/2020 8:05 AM EDT documented in this encounter Patient Instructions * Patient Instructions* Izabela Crump LPN - 05/08/2020 2:54 PM EDT Patient Instructions - Fall Prevention [...] throughout the day. Vincen[employer] Patient Education Copyright 2008 - 2010 [...] Wear support stockings (TEDs)if you have edema Izabela Crump LPN 05/08/2020 Kegel Exercises Kegel exercises dont require special [...] even more effective. [employer] Patient Education Copyright 2009 - 2010 [...] please feel free to contact our office. BMI (Body Mass Index) is the number obtained by dividing a person's weight in kilograms by his or her height in meters squared. BMI is used in determining obesity. BMI is not used to determine a person's actual percentage of body fat, but it is a good tool to lawn technician weight in terms of what is healthy and unhealthy. It is used to identify adults at increased risk for developing weight related medical problems. Estimated body mass index is 55.1 kg/m as calculated from the following: Height as of 8/11/20: 1.626 m (5' 4"). Weight as of this encounter: 145.6 kg (321 lb). Severe Obesity - BMI 40 kg/m2 and [...] message program is also available. Go to Arts[employer] and seethe message under '[employer]' for more information and enrollment. Patient [...] permitted. Keep Honest, Accurate Food logs: * www.[employer] * www.[employer] * If you bite it - write [...] Progress Notes * Kevin Whiteside DO - 05/08/2020 3:03 PM EDT Nursing Notes: Izabela Crump LPN 05/08/20 1500 Signed The patient has been properly identified by confirmation of name and date of . Chief Complaint Patient presents with Follow Up 6 month return, pt reports her pain is her main concern, RLQ, low back, left leg ASSESSMENT/PLAN: 1. Morbid obesity due to excess calories ([facility]) Certainly needs to continue losing weight, getting right knee to improve would help in this effort 2. Type 2 diabetes mellitus with hemoglobin A1c goal of 7.0%-8.0% ([facility]) Stability of A1c, continue current medications and dietary modifications 3. Hyperparathyroidism, secondary renal ([facility]) Stable 4. Dyslipidemia Stable 5. Uncontrolled type 2 diabetes mellitus with stage 4 chronic kidney disease, with long-term current use of insulin ([facility]) Now controlled 6. Body mass index (BMI) of 50.0 to 59.9 in adult ([facility]) Educated 7. 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 Frank filter in place No new shortness of breath 10. Chronic diastolic congestive heart failure ([facility]) Stable, continue follow-up with cardiology 11. Risk and functional assessment - PAT SCRN FOR FALL RISK - PRES OR ABS OF URIN INCONT - URIN INCONT PLAN OF CARE DOC 12. Chronic pain of right knee I am okay with her seeking 2nd opinion about replacement of the right knee as getting her knee functional would greatly improve ability to exercise and perform physical therapy - ORTHOPAEDICS REFERRAL OP 13. Gastroesophageal reflux disease with esophagitis Controlled, continue medication 14. Chronic pain syndrome Chronic pain under reasonable control, specific pain in the right lower back and front of the leg more acute 15. Lumbar radiculopathy Right lower back pain with psoas strain, ongoing radiculopathy. MRI last year displayed significantforaminal narrowing in the L3-4 region. Patient willing to can consider injection for improvement in pain as well as physical therapy once her knee is feeling better. - PAIN MEDICINE REFERRAL OP 16. Anxiety state Continue - clonazePAM (KLONOPIN) 0.5 MG Tablet; Take 1 Tab by mouth 2 times a day. Dispense: 60 Tab; Refill:0 HPI: Stephanie Camp is a 65 year old female who: Presents today with ongoing back pain radiating to the front Of the right leg. Pain has been going on about 2 weeks, notes that she was cleaning her of in and being more active before it began. Had been doing well with back pain and weight loss prior to have re-injuring her right knee. The right knee has continued to give her trouble. Would like to have it replaced. Struggles to lose weight without being able to be active. Hemoglobin A1c has been well controlled, blood sugars at home have been stable. Compliant with medications. ROS: CONSTITUTIONAL: no weight loss, no fevers, [...] numbness PSYCH: no SI/HI PHYSICAL EXAMINATION: BP 130/72 | Pulse 96 | Temp (Src) 97.6 (Tympanic) | Resp 20 | Wt 321 lbs (145.605kg) | BMI 55.1 kg/m | BSA 2.56 m | SaO2 93[RA[% | LMP 03/11/2003 GENERAL: alert, healthy, no distress, morbidly obese, uncomfortable HEAD: normocephalic, atraumatic EYES: PERRL, EOMI, Conjunctiva are pink and non-injected, sclera clear EARS: External ears normal, Canals clear, TM's Normal HEART: regular rate & rhythm, no murmurs and no gallops LUNGS: clear to auscultation bilaterally. No wheezing/rales/rhonchi ABDOMEN: Morbidly obese, abdomen soft, non-tender, normal bowel sounds and no masses or organomegaly SKIN: skin color, texture, turgor are normal, no rashes or significant lesions EXTREMITIES: no joint deformities, effusion, or inflammation, no edema, no clubbing, no cyanosis, Full ROM, Pulses Intact, Strength equal bilaterally NEURO: alert & oriented x 3 with fluent speech, no focal motor/sensory deficits, gait normal, reflexes normal and symmetric MSK: Significant pain in the right lower quadrant with resistance of flexion of the hip, palpation of the psoas, right lower back paraspinal hypertonicity Patient Active Problem List Diagnosis Code Dyslipidemia E78.5 ELLIE (generalized anxiety disorder) F41.1 Postsurgical hypothyroidism E89.0 Nocturnal hypoxemia G47.34 ELISSA (obstructive sleep apnea) G47.33 Venous insufficiency I87.2 HTN, goal below 130/80 I10 History of pulmonary embolus (PE) Z86.711 Statin intolerance Z78.[address] Z95.828 Type 2 diabetes mellitus with hemoglobin A1c goal of 7.0%-8.0% ([facility]) E11.9 Fibromyalgia M79.7 Abnormality of gait R26.9 Restless legs syndrome G25.81 Gastroesophageal reflux disease with esophagitis K21.0 Body mass index (BMI) of 50.0 to 59.9 in adult ([facility]) Z68.43 Controlled substance agreement signed Z79.899 Chronic diastolic congestive heart failure ([facility]) I50.32 Mild episode of recurrent major depressive disorder ([facility]) F33.0 Lumbar radiculopathy M54.16 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, NYHA class 1 and CKD stage 3 ([facility]) I13.0, I50.30, N18.3 Chronic respiratory failure with hypoxia ([facility]) J96.11 Hyperparathyroidism, secondary renal ([facility]) N25.81 Vasculitis ([facility]) I77.6 Primary osteoarthritis of left knee M17.12 Uncontrolled type 2 diabetes mellitus with stage 4 chronic kidney disease, with long-term current use of insulin ([facility]) E11.22, E11.65, N18.4, Z79.4 Past Medical History: Diagnosis Date ELSIE (acute kidney injury) ([facility]) 06/12/2018 Allergic rhinitis due to other allergen Backache Diverticulosis of colon 01/28/06 DM type 2, not at goal ([facility]) ELLIE (generalized anxiety disorder) 09/13/2009 [address]iter [address] in place 08/19/2014 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[facility] [...] (RECTUM) 02/18/2016 normal, repeat 10 yrs/[facility] COLONOSCOPY, GI REFERRAL OP 01/28/06 diverticulosis--repeat 10 years INCISION OF WINDPIPE, PLANNED 06/03/2011 TRACHEOSTOMY PLANNED performed by DANNY HOLDER at [facility] KNEE ARTHROSCOPY/DEBRIDEMENT 07/[address] PERMANENT GASTROSTOMY TUBE 09/06/09 GASTROSTOMY WITH CONSTUCTION GASTRIC TUBE performed by AMADOU NUNEZ at [facility] REMOVAL OF THYROID GLAND 06/15/2011 THYROIDECTOMY INCLUDING SUBSTERNAL THYROID CERVICAL APPROACH performed by DANNY HOLDER at [facility] REMOVE GALLBLADDER 09/06/09 CHOLECYSTECTOMY performed by AMADOU NUNEZ at [facility] REPAIR RECURRENT INCISIONAL HERNIA 1998 REVISION OF COLOSTOMY, SIMPLE 1998 SUTURE, LARGE INTESTINE W/COLOSTOMY 1996 perforation R colon with colostomy VENA CAVA FILTER/LIGATION/CLIP 08/19/09 Frank filter placement through the right femoral 08/19/[address] Lerma at [facility] Current Outpatient Medications Medication Sig Dispense Refill clonazePAM (KLONOPIN) 0.5 MG Tablet Take 1 Tab by mouth 2 times a day. 60 Tab 0 zoster vac recomb adjuvanted (SHINGRIX) [...] as needed for Pain, Severe. 90Tab 0 DIURETIC TITRATION PLAN If no improvement on day 3, contact heart failure managing provider. 1 Each 0 insulin aspart (NOVOLOG) 100 UNIT/ML injection [...] four times daily as directed 400 Each3 Dulaglutide (TRULICITY) 1.5 MG/0.5ML SOPN Inject 1.5 mg under the skin once a week. 15 mL 3 gabapentin (NEURONTIN) 300 MG Capsule Take 1 Cap by mouth 3 times a day. 270 Cap 3 Glucose Blood (ONETOUCH ULTRA BLUE) STRP Check sugars 3-4 times daily 400 Strip 3 insulin aspart (INSULIN ASPART) 100 UNIT/ML [...] up to two weeks. 60 g 1 Blood Glucose Monitoring Suppl (Quarri TechnologiesTOUCH ULTRA 2) w/Device KIT Use to test BG values 1 Kit 0 Glucose Blood (ACCU-CHEK HARRIS PLUS) STRP Test sugar 3-4 times a day. 400 Strip 3 cyclobenzaprine (FLEXERIL) 10 MG Tablet TAKE ONE TABLET BY MOUTH AT BEDTIME NEEDED FOR MUSCLE SPASM 90 Tab 2 ONETOUCH DELICA LANCETS 33G MISC Check blood sugars 3-4 times daily 180 Each 5 docusate sodium (STOOL SOFTENER) 100 MG Capsule Take 100 mg by mouth 2 times a day as needed for Constipation. metolazone (ZAROXOLYN) 2.5 MG Tablet Take as directed by physician (Patient not taking: Reported on05/08/2020) 5 Tab 0 Review of patient's allergies indicates: Allergen Reactions Jardiance [Empagliflozin] Other (Please comment) 3 yeast infections in 6 weeks after starting Hay Fever [Pollen] Heparin Heparin Induced Thrombocytopenia Morphine And Related Hallucinations Tetanus Toxoid Other (Please comment) Passed out Kevin Whiteside DO Family [facility] [address] [facility] [address] (This note was completed using the dictation program Fluency Direct. As such, there may be misspellings, word substitutions, or other variations that should not change the essence of the clinical content of this encounter note.If there is need for further clarification, please direct questions to the provider listed above.) Patient counseling on weight management given. * Izabela rCump LPN - 05/08/2020 2:54 PM EDT Urinary Incontinence Plan of Care Documentation: (This [...] Wear support stockings (TEDs)if you have edema Izabela Crump LPN 05/08/2020 documented in this encounter Nursing Notes * Izabela Crump LPN - 05/08/2020 2:56 PM EDT The patient has been properly identified by confirmation of name and date of . Chief Complaint Patient presents with Follow Up 6 month return, pt reports her pain is her main concern, RLQ, low back, left leg documented in this encounter Plan of Treatment Upcoming Encounters Date Type Specialty Care Team Description 05/15/2020 Home Visit Family Medicine Magaly Morales, Community Health Disability 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 [address], [place] [id number] 05/21/2020 Office Visit Pain Management Raj Ahn DO [address] [place] [address] [phone] 05/28/2020 Office Visit [facility] Powell [facility]C [facility] [place] [address] [phone] 06/03/2020 Office Visit Dermatology Apple Kaminski MD [address] [place] [address] [phone] 06/03/2020 Home Visit [facility] Vera Capellan, RN [address] [place] [address] [phone] 06/10/2020 Home Visit [facility] Rema Real LSW [address] [place] [address] [phone] 06/25/2020 Office Visit Pharmacy [facility] [address] [facility] [place] [address] 07/10/2020 Office Visit Orthopedics Zack Teague, [address] [place] [address] [phone] 07/11/2020 Imaging Radiology 08/22/2020 Office Visit Nephrology Gia White MD [address] [facility] [place] [address] [phone] 11/13/2020 Office Visit Family Medicine Kevin Whiteside DO [address] [place] [address] [phone] 11/27/2020 Office Visit Pulmonary Celsa Tafoya CRNP [address] [facility] [place] [address] [phone] Scheduled Referrals Name Type Priority Associated Diagnoses Orde r Schedule ORTHOPAEDICS REFERRAL OP Referral Within 10 days (routine) Chronic pain of right knee Ordered: 05/08/2020 PAIN MEDICINE REFERRAL OP Referral Within 10 days (routine) Lumbar radiculopathy Ordered: 05/08/2020 Health Maintenance Due Date Last Done Comments Zoster Vaccines (3 of 3) 01/02/2020 11/07/2019, 11/24 *TSH FOR THYROID MEDICATION MONITORING YEARLY 03/16/2020 Pneumococcal Vaccine: 65+ Years (1 of 2 [...] , 02/24/2010 (Done elsewhere), Additional history exists PAP SMEAR-EVERY 3 YRS,AGES 21-65 10/03/2022 10/03/2019, 05/11/2013, 03/01/2008, Additional history exists MENINGOCOCCAL (MENACTRA/MENVEO) Aged Out No longer eligible based on patient's age to complete this topic documented as of this encounter Implants Not on filedocumented as of this encounter Visit Diagnoses Diagnosis Need for vaccination for zoster- Primary Need for prophylactic vaccination and inoculation against other viral diseases Morbid obesity due to excess calories ([facility]) Type 2 diabetes mellitus with hemoglobin A1c goal of 7.0%-8.0% ([facility]) Hyperparathyroidism, secondary renal ([facility]) Secondary hyperparathyroidism (of renal origin) Dyslipidemia Other and unspecified hyperlipidemia Uncontrolled type 2 diabetes mellitus with stage 4 chronic kidney disease, with long-term current use of insulin ([facility]) Body mass index (BMI) of 50.0 to 59.9 in adult ([facility]) 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, NYHA class 1 and CKD stage 3 ([facility]) Frank filter in place Other postprocedural status Chronic diastolic congestive heart failure ([facility]) Chronic diastolic heart failure Risk and functional assessment Screening for unspecified condition Chronic pain of right knee Gastroesophageal reflux disease with esophagitis Chronic pain syndrome Lumbar radiculopathy Thoracic or lumbosacral neuritis or radiculitis, unspecified Anxiety state Anxiety state, unspecified documented in this encounter Advance Directives Documents on File Type Date Recorded Patient Emergency Medicine Nurse Practitioner Expl 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
--- OUTSIDE RECORDS SUMMARY | 2023-06-01 05:21 | External Medical Summary | Summary of Care ---
Author Name Unknown Organization [place] [address] Care Team Providers Care Retail And Promotions Coordinator Name Role Phone Migue Whitesidemelinda Primary Care Provider Reason for Visit * Reason Comments Follow Up recheck vasculitis,d oing well.Continues to take Colchicine 1/2 tab daily.Having spots on both dorsal hands mainly on left hand that are sore,come and goes for the last 2 weeks.No treatment. Encounter Details Date Type Department Care Team Description 06/03/2020 Office Visit Dermatology [facility] [address] [place], [place] [id number] Apple Kaminski MD [address] [place] [address] Leukocytoclastic vasculitis (HCC)*; Lichen planus; Seborrheic keratosis Allergies Active Allergy Reactions Severity Noted Date Comments Codeine 07/08/2014 hallucination Pollen 05/18/2019 Heparin 09/04/2009 Heparin Induced Thrombocytopenia Empagliflozin Other (Please comment) Medium 05/17/2018 3 yeast infections in 6 weeks after starting Morphine And Related 09/16/1997 Hallucinations Tetanus Toxoid Other (Please comment) 06/15/2011 Passed out documented as of this encounter (statuses as of 06/03/2020) Medications Medication Sig Dispensed Refills Start Date [...] 0 05/20/2020 Active Blood Glucose Monitoring Suppl (Century LabsUCH ULTRA 2) w/Device KIT Use to [...] MG TabletIndications:C hronic diastolic congestive heart failure ([facility]) Take 2 Tabs by mouth daily. 180 Tab 3 05/28/2020 Active colchicine 0.6 MG TabletIndications:L eukocytoclastic vasculitis ([facility]) Take 1/2 tab daily 45 Tab 1 06/03/2020 Active clobetasol propionate (TEMOVATE) 0.05 % creamIndications:Kalee rosas planus Apply to rash on the hands and dorsal feet twice daily x 1 week, then as needed for flares. 30 g 1 06/03/2020 Active clobetasol propionate (TEMOVATE) 0.05 % ointmentIndications :Irritant contact dermatitis, unspecified trigger Apply topically to affected area 2 times a day. To affected area for up to two weeks. 60 g 1 02/13/2019 06/03/20 20 Discontinu ed(Medicat ion/Dose Changed) colchicine 0.6 MG TabletIndications:L eukocytoclastic vasculitis (HCC) Take 1/2 tab daily 45 Tab 1 01/31/2020 06/03/20 20 Discontinu ed(Refill) documented as of this encounter (statuses as of 06/03/2020) Active Problems Problem Noted Date Uncontrolled type [...] as of this encounter (statuses as of 06/03/2020) Resolved Problems Problem Noted Date Resolved Date [...] as of this encounter (statuses as of 06/03/2020) Immunizations Name Administration Dates Next Due Pneumococcal [...] as of this encounter Progress Notes * Apple Kaminski MD - 06/03/2020 11:15 AM EDT SUBJECTIVE: History of Present Illness: Stephanie Camp is a 65 year old female seen today for follow up of 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 Last Office/Telemedicine Visit: 01/31/2020. Last attempted treatments includeclobetasol cream and colchicine 0.3mg daily resulting in continued improvement. Treatment tolerated well, denies GI upset or diarrhea. Pt states he legs flared only once during a bout of cellulitis and lasted 1 week and then cleared. 09/10/19-ASO titer positive-237 Nkhuiobcjolay-clctcbto-ecwosmvguz type III Creatinine 2.0 09/10/19: CBC, BEL, RF, hepatitis panel-negative, SPEP-no paraprotein 12/24/19-ANCA negative, complement -WNL, 01/04/20 BMP: creatinine 1.9, U/A: large esterase, increased WBC and increased esterase 01/04/20 culture positive for Klebsiella Biopsy A. Skin, right forearm: Leukocytoclastic vasculitis (see comment) Growth on the abdomen x 1 month, no changes New pink spots on the hands and dorsal feet x 2 weeks, itches and slightly sore. Had a few sores in her mouth, but they have healed. REVIEW OF SYSTEMS: SKIN: No other new or changing moles. HEME/LYMPH: No new or enlarging lumps or bumps. CONSTITUTIONAL: No nausea, vomiting, fevers, chills, diarrhea. No recent unintended weight loss, night sweats, appetite or malaise. MEDICA TIONS: Current Outpatient Medications Medication Sig Dispense Refill furosemide (LASIX) 40 MG Tablet Take 2 Tabs by mouth daily. 180 Tab 3 TRULICITY 1.5 MG/0.5ML SOPN [...] up to two weeks. 60 g 1 cyclobenzaprine (FLEXERIL) 10 MG Tablet TAKE ONE TABLET BY MOUTH AT BEDTIME NEEDED FOR MUSCLE SPASM (Patient not taking: Reported on 05/26/2020) 90 Tab 2 ONETOUCH DELICA LANCETS 33G MISC Check blood sugars 3-4 times daily 180 Each 5 docusate sodium (STOOL SOFTENER) 100 MG Capsule Take 100 mg by mouth 2 times a day as needed for Constipation. ALLERG IES: Jardiance [empagliflozin]; Hay fever [pollen]; Heparin; Morphine and related; and Tetanus toxoid PAST MEDICAL HISTORY: Past Medical History: Diagnosis Date ELSIE (acute kidney injury) ([facility]) 06/12/2018 Allergic rhinitis due to other allergen Backache Diverticulosis of colon 01/28/06 DM type 2, not at goal ([facility]) ELLIE (generalized anxiety disorder) 09/13/[address] filter in place 08/19/2014 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[facility]) 08/22/2009 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[facility]) 06/12/2018 History of pulmonary embolus (PE) 07/16/2014 HTN, goal below 140/90 Impetigo 09/27/2018 Obesity, BMI not known Perforation of intestine ([facility]) 1996 COLON -- 1996 Pneumonia in aspergillosis(484.6) 09/14/2009 Spontaneous pneumothorax 09/14/2009 Statin intolerance 07/16/2014 Type 2 diabetes mellitus with hemoglobin A1c goal of 7.0%-8.0% ([facility]) 10/14/2014 ICD-10 update of inactive term Vaginal karmen 07/13/2018 OBJECTIVE: GEN: Healthy, alert, no distress, appears oriented, pleasant and cooperative. SKIN: Detailed exam of hair, face including lids and lips, neck, bilateral upper ext. (arm, hand, fingers) and bilateral legs and feet completed and are normal except: 1. No purpuric lesions on exam today 2. Farley/purple flat-topped papules on the bilateral dorsal hands and few on the dorsal feet. 3. brown keratotic plaque with a stuck on appearance and horn cysts present on the central abdomen. ASSESS MENT/PLAN: 1. leukocytoclastic vasculitis ?due to strep infection-continue colchicine 0.3mg daily (1/2 tab daily) Pt aware of side effects of GI upset/diarrhea. 2. ?Lichen Planus-clobetasol cream twice daily x 1 week, then as needed for flares Pt to call if continues to develop lesions, also encouraged to call if starts to develop lesions again in the mouth. 3. Seborrheic/Benign Keratosis(-es)-Benign nature was discussed and no further intervention needed.Advised to call with any changes. Patient counseled to examine herself for new or changing moles on a monthly basis. I reveiwed changes to watch for including changes in the ABCDs, asymmetry of a lesion, changes in border, color or diameter as well as non healing lesions. I instructed the patient to call if any new lesions appear or current lesions change. I discussed with the patient the need for daily sunscreens of a number 30 or higher as well as how to apply sunscreens. Follow-up: 4-6 months There were no barriers tolearning and no other pain was related to today's visit. The patient and/or person accompanying patient demonstrates understanding of the visit and treatment. Apple Kaminski MD Ref: SELF[[id number]] NO STREET ADDRESS AVAILABLE None (office) None (fax) PCP: MIGUE WHITESIDE [address] [place] [address] [phone] documented in this encounter Nursing Notes * Althea Davidson, RN - 06/03/2020 10:55 AM EDT Patient identified by name and date of . Do you have any concerns about pain management for today's visit? No Living Will or Advance Directive for Health Care as noted on problem list. Tuneer is a way you can talk to your provider online through e-mail. Would you like to sign up? I can activate it for you? ALREADY ACTIVE Chief Complaint Patient presents with Follow Up recheck vasculitis,doing well.Continues to take Colchicine 1/2 tab daily.Having spots on both dorsal hands mainly on left hand that are sore,come and goes for the last 2 weeks.No treatment. documented in this encounter Plan of Treatment Upcoming Encounters Date Type Specialty Care Team Description 06/05/2020 Home Visit [facility] Vera Capellan RN [address] [place] [address] [phone] 06/10/2020 Home Visit [facility] Rema Real LSW [address] [place] [address] [phone] 06/25/2020 Office Visit [facility]acy [facility] [place] [address] [place] [address] 06/26/2020 Home Visit Family Medicine Magaly Morales, Community Health Storage Center Manager [address] [place] [address] [phone] 07/10/2020 Office Visit Orthopedics Zack Teague DO [address] [place] [address] [phone] 07/11/2020 Imaging Radiology 08/22/2020 Office Visit [facility]phrology [facility]ia White MD [address] [facility] [place] [address] 09/30/2020 Office Visit Dermatology Apple Kaminski MD [address] [facility] [place] [address] [phone] 11/13/2020 Office Visit Family Medicine Migue Whiteside DO [address] [place] [address] [phone] 11/27/2020 Office Visit Pulmonary Celsa Tafoya CRNP [...] as of this encounter Visit Diagnoses Diagnosis Leukocytoclastic vasculitis (HCC)- Primary Other specified hypersensitivity angiitis Lichen planus Seborrheic keratosis Other seborrheic keratosis documented in this encounter Advance Directives Documents on File Type Date Recorded Patient Mount Loader Expl 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
--- OUTSIDE RECORDS SUMMARY | 2023-06-01 05:21 | External Medical Summary | Summary of Care ---
Author Name Unknown Organization [place] [address] Care Team Providers Care Bench Chemist Name Role Phone Whiteside Kevin Gonzalez DO Primary Care Provider Reason for Visit * Reason Comments Order Request Encounter Details Date Type Department Care Team Description 06/03/2020 Telephone Pulmonary Medicine, [facility] [address] [facility] [place] [address] Cels[facility]af[facility] CRNP [facility] [address] Order Request Allergies Active Allergy Reactions [...] taking. Reported on 05/26/2020 9:24 AM ONETOUCH DELFRANTZ LANCETS 33G MISC Check blood [...] 30 mL 5 04/02/2020 Active DIURETIC TITRATION PLANIndications:Engineering Aid zahra diastolic congestive heart failure (HCC) If [...] 7.0%-8.0% ([facility]) TAKE ONE CAPSULE BY MOUTH THREE TIMES DAILY 270 Cap 0 05/20/2020 Active Blood Glucose Monitoring Suppl (LizticTOUCH ULTRA 2) w/Device KIT Use to test BG values 1 Kit 0 05/20/2020 Active Glucose Blood (ONETOUCH ULTRA BLUE) STRP Check sugars 3-4 times daily, E11.9 400 Strip 3 05/22/2020 Active TRULICITY 1.5 MG/0.5ML SOPNIndications:DM type 2 nursing care encounter ([facility]),Uncontrolled type 2 diabetes mellitus with stage 3 chronic kidney disease, with long-term current use of insulin ([facility]) inject 1.5mg (one pen) under the skin once weekly 6 mL 1 05/27/2020 Active furosemide (LASIX) 40 MG TabletIndications:Ch ronic diastolic congestive heart failure ([facility]) Take 2 Tabs by mouth daily. 180 Tab 3 05/28/2020 Active colchicine 0.6 MG TabletIndications:Le ukocytoclastic vasculitis ([facility]) Take 1/2 tab daily 45 Tab [...] 10/14/2014 Overview: ICD-10 update of inactive term Firth filter in place 08/19/2014 History of pulmonary [...] Miscellaneous Notes * Telephone Encounter - Anne Mayes CMA - 06/03/2020 12:44 PM EDT Order faxed * Telephone Encounter - Celsa Tafoya CRNP - 06/03/2020 11:32 AM EDT Order placed. Please fax. * Telephone Encounter - Anne Mayes CMA - 06/03/2020 10:20 AM EDT Sonja from [facility] requesting an order for a new cpap machine. The patient states hers broke over theweekend. She is coming into [facility] this afternoon for set up. documented in this encounter Plan of Treatment Upcoming Encounters Date Type Specialty Care Team Description 06/05/2020 [facility] Visit [facility] Vera Capellan RN [address] [place] [address] [phone] 06/10/2020 Home Visit [facility] Rema Real LSW [address] [facility] [place] [address] [phone] 06/25/2020 Office Visit Pharmacy [facility] Jeramie [address] [facility] [place] [address] 06/26/2020 Home Visit Family Medicine Magaly Morales, Community Health Repeat Chief [address] [place] [address] [phone] 07/10/2020 Office Visit Orthopedics Zack Teague DO [address] [facility] [place] [address] [phone] 07/11/2020 Imaging Radiology 08/22/2020 Office Visit Nephrology Gia White MD [address] [place] [address] [phone] 09/30/2020 Office Visit Dermatology Apple Kaminski MD [address] [place] [address] [phone] 11/13/2020 Office Visit Family Medicine Kevin Whiteside, [address] [facility] [place] [address] [phone] 11/27/2020 Office Visit Pulmonary Celsa Tafoya CRNP [address] [facility] [place] [address] [phone] Health Maintenance Due Date Last Done Comments [...] Documents on File Type Date Recorded Patient Tree Climber Expl 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
--- OUTSIDE RECORDS SUMMARY | 2023-06-01 05:21 | External Medical Summary | Summary of Care ---
Author Name Unknown Organization [place] [address] Care Team Providers Care Topographical Field Assistant Name Role Phone Migue Whiteside DO Primary Care Provider Reason for Visit * Reason Comments Medication Refill Encounter Details Date Type Department Care Team Description 05/20/2020 Refill Family Practice [facility] [address] [place] [address] Migue Whiteside DO [address] [facility] [place] [address] [phone] Allergies Active Allergy Reactions Severity Noted Date [...] 08/30/2018 Active clobetasol propionate (TEMOVATE) 0.05 % ointmentIndications [...] use of insulin ([facility]) Inject 1.5 mg under the skin [...] a day. 60 Tab 0 05/08/2020 Active Blood Glucose Monitoring Suppl (ONETOUCH ULTRA 2) w/Device KIT Use to test BG values 1 Kit 0 05/20/2020 Active Blood Glucose Monitoring Suppl (ONETOUCH ULTRA 2) w/Device KIT Use to test BG values 1 Kit 0 01/26/2019 05/20/20 20 Discontinu ed(Refill) documented as of this [...] 3:05 PM EDT Signed Prescriptions: Disp Refills Blood Glucose Monitoring Suppl (ONETOUCH U*1 Kit 0 Sig: Use to test BG values Authorizing Provider: MIGUE WHITESIDE * Telephone Encounter - Tabitha Cruz OSA - 05/20/2020 2:27 PM EDT Pending Prescriptions: Disp Refills Blood Glucose Monitoring Suppl (ONETOUCH *1 Kit 0 Sig: Use to test BG values Last Office/Telemedicine Visit: 05/08/2020 Next Office Visit: 11/13/2020 Scheduled Provider(s): Migue Whiteside DO If no future appointments scheduled, and last appointment is greater than a year ago, please schedule patient for a follow-up appointment Last date the medication was ordered: 09-07-19 Pharmacy: [id number] Is this request for a controlled [...] Raj Ahn DO [address] [place] [address] [phone] 05/28/2020 Office Visit Cardiology Marjorie Powell PA-C [address] [place] [address] [phone] 06/03/2020 Office Visit Dermatology Apple Kaminski MD [address] [place] [address] [phone] 06/03/2020 Home Visit [facility] Vera Capellan, RN [address] [facility] [place] [address] [phone] 06/10/2020 Home Visit [facility] Rema Real JOB TRAINING SUPERVISOR [address] [facility] [place] [address] [phone] 06/25/2020 Office Visit Pharmacy [facility] Jer[place]ie [address] [facility] [place] [address] 06/26/2020 Home Visit Family Medicine Magaly Morales, Community Health Car Lubricator [address] [place] [address] [phone] 07/10/2020 Office Visit Orthopedics Zack Teague, [address] [facility] [place] [address] [phone] 07/11/2020 Imaging Radiology 08/22/2020 Office Visit Nephrology Gia White MD [address] [place] [address] [phone] 11/13/2020 Office Visit Family Medicine Migue Whiteside, [address] [place] [address] [phone] 11/27/2020 Office Visit Pulmonary Celsa Tafoya CRNP [address] [place] [address] [phone] Health Maintenance Due Date Last Done Comments [...] Documents on File Type Date Recorded Patient Inside Sales Account Manager Expl 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
--- OUTSIDE RECORDS SUMMARY | 2023-06-01 05:21 | External Medical Summary | Summary of Care ---
Author Name Unknown Organization [place] [address] Care Team Providers Care Linen Room Houseperson Name Role Phone Kevin Whiteside DO Primary Care Provider Reason for Visit * Reason Comments Medication Refill Encounter Details Date Type Department Care Team Description 05/21/2020 Telephone Family Practice [facility] [address] [facility] [place] [address] Kevin Whiteside DO [address] [facility] [place] [address] [phone] Medication Refill Allergies Active Allergy Reactions Severity Noted Date Comments Pollen 05/18/2019 Heparin 09/04/2009 Heparin Induced Thrombocytopenia Empagliflozin Other (Please comment) Medium 05/17/2018 3 yeast infections in 6 weeks after starting Morphine And Related 09/16/1997 Hallucinations Tetanus Toxoid Other (Please comment) 06/15/2011 Passed out documented as of this encounter (statuses as of 05/23/2020) Medications Medication Sig Dispensed Refills Start Date [...] of insulin ([facility]) Inject 1.5 mg under the skin [...] Active colchicine 0.6 MG TabletIndications:L eukocytoclastic vasculitis ([facility] [...] 1 Kit 0 05/20/2020 Active Glucose Blood (ACCU-CHEK HARRIS PLUS) STRP Test sugar 3-4 times a day. 400 Strip 3 08/30/2018 05/22/20 20 Discontinu ed(Refill) Glucose Blood (ONETOUCH ULTRA BLUE) STRP Check sugars 3-4 times daily 400 Strip 3 12/18/2019 05/21/20 20 Discontinu ed(Refill) documented as of this encounter (statuses as of 05/23/2020) Active Problems Problem Noted Date Uncontrolled type [...] as of this encounter (statuses as of 05/23/2020) Resolved Problems Problem Noted Date Resolved Date [...] as of this encounter (statuses as of 05/23/2020) Immunizations Name Administration Dates Next Due Pneumococcal [...] Miscellaneous Notes * Telephone Encounter - Rey Woodall MD - 05/23/2020 9:41 AM EDT Continue furosemide 80 mg p.o. twice daily Renal function essentially stable by recent testing May 06, 2020 * Telephone Encounter - Teri Cullen RN - 05/23/2020 8:51 AM EDT Spoke to pt. She misunderstood Dr Woodall's directions in February. Dr Woodall increased her Lasix from 60 mg daily to 80 mg daily. She thought he wanted her to take 80 mg BID. She is under the impression she needs to continue at this dose. Sending to Dr Woodall, Dr White and Dr Whiteside for input. As an FYI, pt has an office visit scheduled with Marjorie Powell PA-C on 05/28. * Telephone Encounter - Teri Cullen RN - 05/23/2020 8:43 AM EDT Gia White MD You; Kevin Whiteside DO; Izabela Crump LPN Thanks for the update. Do we know why she is asking for increase? Looks like Dr. Le put her onlasix 80mg daily and metolazone prn. In Epic her weight has gone up only 2lbs from 319 to 321. If her home weight has gone up significantly she can take metolazone. In the meantime, I will arrange to see her in clinic sooner. Teri, can we get her in clinic in May? Gia * Telephone Encounter - Kevin Whiteside DO - 05/22/2020 7:49 AM EDT Will get nephrology input on that as well - I don't have a problem with it but would require renal and potassium monitoring. Thank youb * Telephone Encounter - Izabela Crump LPN - 05/21/2020 3:42 PM EDT Please advise. * Telephone Encounter - Armaan Cobian CPhT - 05/21/2020 3:12 PM EDT Donald called in stating patient is asking to be placed on furosemide 80mg twice daily Per pharmacy patient received rx over a year ago and it was written by hospitalist Please review and submit new script or clarify treatment plan with patient Thanks, Darshan Cobian ([place]) Engraving Supervisor Refill Call Center 05/21/2020, 3:13 PM documented in this encounter Plan of Treatment Upcoming Encounters Date Type Specialty Care Team Description 05/26/2020 Hospital Encounter Surgery JimyRaj Callum, DO [address] [place] [address] [phone] 05/26/2020 Surgery Surgery JimyRaj Callum, DO [address] [place] [address] [phone] INJECTION SPINE LUMBAR OR SACRAL 05/28/2020 Office Visit Cardiology Marjorie Powell PA-C [address] [place] [address] [phone] 06/03/2020 Office Visit Dermatology Apple Kaminski MD [address] [place] [place] [address] [phone] 06/03/2020 Home Visit [facility] Vera Capellan RN [address] [place] [address] [phone] 06/10/2020 Home Visit [facility] Rema Real LSW [address] [place] [address] [phone] 06/25/2020 Office Visit Pharmacy [facility] Jeramie [address] [place] [address] 06/26/2020 Home Visit Family Medicine Magaly Morales, Community Health Ground Crew Chief [address] [place] [address] [phone] 07/10/2020 Office Visit Orthopedics Zack Teague, DO [address] [place] [address] [phone] 07/11/2020 Imaging Radiology 08/22/2020 Office Visit Nephrology Gia White MD [address] [facility] [place] [address] [phone] 11/13/2020 Office Visit Family Medicine Kevin Whiteside DO [address] [place] [address] [phone] 11/27/2020 Office Visit Pulmonary Celsa Tafoya CRNP [address] [place] [address] [phone] Health Maintenance Due Date Last Done Comments [...] Documents on File Type Date Recorded Patient Case Assistant Expl 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
--- OUTSIDE RECORDS SUMMARY | 2023-06-01 05:22 | External Medical Summary | Summary of Care ---
Author Name Unknown Organization [facility] Address [place], [place] [address] Care Team Providers Care Other Sports Coach Or Instructor Name Role Phone Stevo Kevin Ocampomelinda Primary Care Provider Reason for Visit * Reason Comments [facility]: Maintenance Encounter Details Date Type Department Care Team Description 04/25/2020 Pipe Finisher [facility], [facility] [address] [facility] [place] [address] Rema Real, [facility] [address] [facility] [place] [address] [phone] Allergies Active Allergy Reactions Severity Noted Date Comments Pollen 05/18/2019 Heparin 09/04/2009 Heparin Induced Thrombocytopenia Empagliflozin Other (Please comment) Medium 05/17/2018 3 yeast infections in 6 weeks after starting Morphine And Related 09/16/1997 Hallucinations Tetanus Toxoid Other (Please comment) 06/15/2011 Passed out documented as of this encounter (statuses as of 04/25/2020) Medications Medication Sig Dispensed Refills Start Date [...] 3 08/30/2018 Active Blood Glucose Monitoring Suppl (Accion ULTRA 2) w/Device KIT Use to test [...] of insulin ([facility]) Inject 1.5 mg under the [...] at bedtime. 90 Tab 3 03/13/2020 Active dicyclomine (BENTYL) 20 MG Tablet 0 03/13/2020 Active metoprolol tartrate (LOPRESSOR) 25 MG TabletIndications:HT N, goal below 130/80,Acute diastolic congestive heart failure (HCC),Body mass index (BMI) of 50.0 to 59.9 in adult (HCC),Hypoxemia,ELISSA (obstructive sleep apnea),HTN, goal below 140/80 Take 0.5 Tabs by mouth 2 times a day. 90 Tab 3 03/13/2020 Active traMADol (ULTRAM) 50 MG TabletIndications:Ch ronic pain syndrome Take 1 Tab by mouth every 8 hours as needed for Pain, Severe. 90 Tab 0 03/13/2020 Active insulin aspart (NOVOLOG) 100 UNIT/ML injection use in insulin pump up to 200 units per day as directed 30 mL 5 04/02/2020 Active DIURETIC TITRATION PLANIndications:Ceramic Coater zahra diastolic congestive heart failure (HCC) If no improvement on day 3, contact heart failure managing provider. 1 Each 0 04/08/2020 Active clonazePAM (KLONOPIN) 0.5 MG TabletIndications:An xiety state TAKE ONE TABLET BY MOUTH TWICE DAILY 60 Tab 0 04/16/2020 Active documented as of this encounter (statuses as of 04/25/2020) Active Problems Problem Noted Date Uncontrolled type [...] as of this encounter (statuses as of 04/25/2020) Resolved Problems Problem Noted Date Resolved Date [...] as of this encounter (statuses as of 04/25/2020) Immunizations Name Administration Dates Next Due Pneumococcal [...] have Coronavirus / COVID-19? No / Unsure 04/25/2020 2:51 PM EDT documented as of this encounter Progress Notes * Rema Real LSW - 04/25/2020 4:06 PM EDT STEFANY called Ricardo public accountant for [employer]. He reports he is willing to write off the back owed amount and moving forward will accept her insurance for items necessary. STEFANY called to notify Stephanie.Spoke with Stephanie-notified her that her collections bill has been written off and they are willing to move forward with ordering of supplies now that she has [facility]. Also notified her that she is to notify [facility] of any insurance changes in the future. She expressed appreciation. She will call for supplies for CPAP machine. There does seem to be discrepancy about whether she has coverage for [place] community health and wellness and we agreed to follow up together to clarify coverage. documented in this encounter Plan of Treatment Upcoming Encounters Date Type Specialty Care Team Description 05/08/2020 Office Visit Family Medicine Kevin Whiteside DO [address] [facility] [place] [address] [phone] 05/15/2020 Home Visit Family Medicine Magaly Morales, Community Health Director Of Clinical Trials [address] [place], [place] [id number] 05/28/2020 Office Visit Cardiology Marjorie Powell, EVIN [address] [facility] [place] [address] [phone] 06/03/2020 Office Visit Dermatology Apple Kaminski MD [address] [place] [address] [phone] 06/25/2020 Office Visit Pharmacy [facility] [place] [facility] [place] [address] 07/10/2020 Office Visit Orthopedics Zack Teague DO [facility] [place] [address] 07/11/2020 Imaging Radiology 11/27/2020 Office Visit Pulmonary Celsa Tafoya CRNP [address] [facility] [place] [address] Health Maintenance Due Date [...] Documents on File Type Date Recorded Patient Nuts And Bolts Assembler Expl 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
--- OUTSIDE RECORDS SUMMARY | 2023-06-01 05:22 | External Medical Summary | Summary of Care ---
Author Name Unknown Organization [facility] Address [place], [place] [address] Care Team Providers Care Mixer Pigment Name Role Phone Whiteside Kevin Ocampomelinda Primary Care Provider Reason for Visit * Reason Comments [facility]: Maintenance Encounter Details Date Type Department Care Team Description 05/07/2020 Home Visit [facility], [facility] [place] [address] Rema Real, [facility] [place] [address] [phone] Allergies Active Allergy Reactions Severity Noted Date Comments Pollen 05/18/2019 Heparin 09/04/2009 Heparin Induced Thrombocytopenia Empagliflozin Other (Please comment) Medium 05/17/2018 3 yeast infections in 6 weeks after starting Morphine And Related 09/16/1997 Hallucinations Tetanus Toxoid Other (Please comment) 06/15/2011 Passed out documented as of this encounter (statuses as of 05/07/2020) Medications Medication Sig Dispensed Refills Start Date [...] 3 08/30/2018 Active Blood Glucose Monitoring Suppl ([employer] ULTRA 2) w/Device KIT Use to test [...] use of insulin ([facility]) Inject 1.5 mg under the skin [...] 30 mL 5 04/02/2020 Active DIURETIC TITRATION PLANIndications:Pharmaceutical Worker zahra diastolic congestive heart failure (HCC) If no improvement on day 3, contact heart failure managing provider. 1 Each 0 04/08/2020 Active clonazePAM (KLONOPIN) 0.5 MG TabletIndications:An xiety state TAKE ONE TABLET BY MOUTH TWICE DAILY 60 Tab 0 04/16/2020 Active dicyclomine (BENTYL) 20 MG Tablet Take 1 Tab by mouth 4 times a day as needed for Pain, Mild. For abdominal pain 120 Tab 11 05/06/2020 Active traMADol (ULTRAM) 50 MG TabletIndications:Ch ronic pain syndrome Take 1 Tab by mouth every 8 hours as needed for Pain, Severe. 90 Tab 0 05/06/2020 Active documented as of this encounter (statuses as of 05/07/2020) Active Problems Problem Noted Date Uncontrolled type [...] 10/14/2014 Overview: ICD-10 update of inactive term [place] filter in place 08/19/2014 History of [...] as of this encounter (statuses as of 05/07/2020) Resolved Problems Problem Noted Date Resolved Date [...] as of this encounter (statuses as of 05/07/2020) Immunizations Name Administration Dates Next Due Pneumococcal [...] Progress Notes * Rema Real, [place] - 05/07/2020 10:59 AM EDT STEFANY met with Stephanie for follow up visit regarding addressing need to confirm insurance coverage. Stephanie reporting she is not sure of Medical Assistance coverage and does not have an insurance card. Because of recent sign on and that closure of policies she agreed for us to investigate and verify insurance coverage. We called Migdalia first for [facility] Assistance office. She confirmed Stephanie had coverage but no specific details and gave us number of Tashi to call.She did say she would send a re-newal form for Stephanie to complete in May and Stephanie agreed to complete the form. STEFANY offered assistance if needed. Migdalia gave us [employer] number and they gave us [employer] and [employer]. We did finally talk with Robert who did confirm Stephanie's coverage for [employer] and [employer] coverage. He shared what was covered including medicare part B premiums. medication co-pays, home modifications,ect. He did confirm her ID number [id number]. He will also send Stephanie an insurance card and handbook. Stephanie also has [employer] and STEFANY gave this number to gab Johnston, to add to insurance coverage in medical chart. STEFANY offered to come back and see Stephanie-complete SS assessment and follow from SW perspective. She agreed for this and apt made for 06/10/2020. notes: Nga Pino=ID [id number] [employer] [facility]-call directly Call to Zosxhl-[phone] for confirmation of Medical Assistance. She reports [id number] buy in-paying part B, [employer]-[phone]-Food stamps-if not rec'ing maximum allotment d/t income-would get increased r/t COVID protocols. Have not confirmed increase in April, may increase food stamps- Migdalia feels this is likely. documented in this encounter Plan of Treatment Upcoming Encounters Date Type Specialty Care Team Description 05/08/2020 Office Visit Family Medicine Kevin Whiteside DO [address] [place] [address] [phone] 05/15/2020 Home Visit Family Medicine Magaly Morales, [facility] Health Stock Counter [address] [place] [address] [phone] 05/28/2020 Office Visit Cardiology Marjorie Powell PA-C [address] [place] [address] [phone] 06/03/2020 Office Visit Dermatology Apple Kaminski MD [address] [place] [address], [place] [address] [phone] 06/03/2020 [facility] Visit [facility] Vera Capellan, LEXI [address] [place] [address] [phone] 06/10/2020 Home Visit [facility] Rema Real LSW [address] [place] [address] [phone] 06/25/2020 Office Visit Pharmacy [facility] [place] [address] [place] [address] 07/10/2020 Office Visit Orthopedics Zack Teague DO [address] [place] [address] [phone] 07/11/2020 Imaging Radiology 08/22/2020 Office Visit Nephrology Gia White MD [address] [place] [address] 11/27/2020 Office Visit Pulmonary Celsa Tafoya CRNP [...] Documents on File Type Date Recorded Patient Technician Trainee Expl 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
--- OUTSIDE RECORDS SUMMARY | 2023-06-01 05:22 | External Medical Summary | Summary of Care ---
Author Name Unknown Organization [place] [address] Care Team Providers Care Personal Injury Legal Assistant Name Role Phone Migue Whiteside DO Primary Care Provider Reason for Referral * Medication Prior Authorization (Routine) Status Reason Specialty Diagnoses / Procedures Referred By Contact Referred To Contact Pending Review Diagnoses Chronic pain syndrome Migue Whiteside DO [address] [place] [address] Reason for Visit * Reason Comments Medication Refill Encounter Details Date Type Department Care Team Description 05/06/2020 Telephone Family [facility] [address] [place] [address] Migue Whiteside DO [address] [place] [address] [phone] Medication Refill Allergies Active Allergy Reactions Severity Noted Date Comments Pollen 05/18/2019 Heparin 09/04/2009 Heparin Induced Thrombocytopenia Empagliflozin Other (Please comment) Medium 05/17/2018 3 yeast infections in 6 weeks after starting Morphine And Related 09/16/1997 Hallucinations Tetanus Toxoid Other (Please comment) 06/15/2011 Passed out documented as of this encounter (statuses as of 05/06/2020) Medications Medication Sig Dispensed Refills Start Date [...] 3 08/30/2018 Active Blood Glucose Monitoring Suppl (Mainstream EnergyTOUCH ULTRA 2) w/Device KIT Use to test [...] use of insulin ([facility]) Inject 1.5 mg under the [...] 0 02/26/2020 Active furosemide (LASIX) 40 MG TabletIndications:C hronic [...] 0 04/08/2020 Active clonazePAM (KLONOPIN) 0.5 MG TabletIndications:A nxiety [...] Pain, Severe. 90 Tab 0 05/06/2020 Active traMADol (ULTRAM) 50 MG TabletIndications:C hronic pain syndrome Take 1 Tab by mouth every 8 hours as needed for Pain, Severe. 90 Tab 0 03/13/2020 05/06/20 20 Discontinu ed(Refill) documented as of this encounter (statuses as of 05/06/2020) Active Problems Problem Noted Date Uncontrolled type [...] 10/14/2014 Overview: ICD-10 update of inactive term [place] filter in place 08/19/2014 History of pulmonary [...] as of this encounter (statuses as of 05/06/2020) Resolved Problems Problem Noted Date Resolved Date [...] as of this encounter (statuses as of 05/06/2020) Immunizations Name Administration Dates Next Due Pneumococcal [...] have Coronavirus / COVID-19? No / Unsure 05/06/2020 7:13 AM EDT documented as of this encounter Miscellaneous Notes * Telephone Encounter - Jayna Haji PHARM Tech - 05/06/2020 12:16 PM EDT Michael from [facility] is calling to advise [employer] sent a prior auth for pt's tramadol they will need further info faxed to [phone] before 4pm today for consideration. Thank you, Jayna Haji T Hardboard Grinder [facility] 05/06/2020, 12:16 PM * Telephone Encounter - Migue Whiteside DO - 05/06/2020 10:13 AM EDT Signed Prescriptions: Disp Refills traMADol (ULTRAM) 50 MG Tablet 90 Tab 0 Sig: Take 1 Tab by mouth every 8 hours as needed for Pain, Severe. Authorizing Provider: MIGUE WHITESIDE * Telephone Encounter - Linda Dexter LPN - 05/06/2020 8:40 AM EDT Pt in to see Linda Shai and needs refill on the tramadol. documented in this encounter Plan of Treatment Upcoming Encounters Date Type Specialty Care Team Description 05/07/2020 [facility] Visit [facility] Rema Real, [place] [address] [facility] [place] [address] [phone] 05/08/2020 Office Visit Family Medicine Migue Whiteside DO [address] [place] [address] [phone] 05/15/2020 Home Visit Family Medicine Magaly Morales, Community Health Morale Officer [address] [place] [address] [phone] 05/28/2020 Office Visit Cardiology Marjorie Powell PADar [facility] [place] [address] [phone] 06/03/2020 Office Visit Dermatology Apple Kaminski MD [address] [place] [address] [phone] 06/03/2020 Home Visit [facility] Vera Capellan, RN [address] [place] [address] [phone] 06/25/2020 Office Visit Pharmacy [facility] [place] [address] [place] [address] 07/10/2020 Office Visit Orthopedics Zack Teague DO [address] [place] [address] [phone] 07/11/2020 Imaging Radiology 08/22/2020 Office Visit Nephrology Gia White MD [address] [facility] [place] [address] 11/27/2020 Office Visit Pulmonary Celsa Tafoya CRNP [address] [place] [address] [phone] Health Maintenance Due Date Last Done Comments [...] Documents on File Type Date Recorded Patient Acls Nurse Expl 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
--- OUTSIDE RECORDS SUMMARY | 2023-06-01 05:22 | External Medical Summary | Summary of Care ---
Author Name Unknown Organization [place] [address] Care Team Providers Care Data Recovery Planner Name Role Phone Migue Whiteside DO Primary Care Provider Reason for Referral * Medication Prior Authorization (Routine) Status Reason Specialty Diagnoses / Procedures Referred By Contact Referred To Contact Pending Review Diagnoses Chronic pain syndrome Migue Whiteside DO [address] [place] [address] Reason for Visit * Reason Comments Medication Refill Encounter Details Date Type Department Care Team Description 05/06/2020 Refill [address] [facility] [address] [place] [address] Migue Whiteside DO [address] [place] [address] [phone] Chronic pain syndrome Allergies Active Allergy Reactions [...] 3 08/30/2018 Active Blood Glucose Monitoring Suppl (CinaMakerTOUCH ULTRA 2) w/Device KIT Use to test [...] with long-term current use of insulin ([facility]) Inject 1.5 mg under the skin once [...] Overview: ICD-10 update of inactive term [place] filter in place 08/19/2014 History of pulmonary [...] & Above, IM 07/23/2019,06/12/2018,07/14/2017 Seasonal Influenza, Quadriva erikat, No Preserve, IM 06/24/2016,07/24/2015 Seasonal Influenza, Trivalen [...] AM EDT Pt in to see Linda Gibbons and needs refill on the tramadol. documented in this encounter Plan of Treatment Upcoming Encounters Date Type Specialty Care Team Description 05/07/2020 [facility] Visit [facility] Rema Real, MEDICAL PHYSICS PROFESSOR [address] [place] [address] [phone] 05/08/2020 Office Visit Family Medicine Migue Whiteside, [address] [place] [address] [phone] 05/15/2020 Home Visit Family Medicine Magaly Morales, Community Health Graphic Pre Press Trades Worker [address] [place] [address] 05/28/2020 Office Visit Cardiology Marjorie Powell, PADar [address] [place] [address] [phone] 06/03/2020 Office Visit Dermatology Apple Kaminski MD [address] [place] [address] [phone] 06/03/2020 [facility] Visit [facility] Vera Capellan RN [address] [place] [address] [phone] 06/25/2020 Office Visit Pharmacy [facility] [place] [address] [place] [address] 07/10/2020 Office Visit Orthopedics Zack Teague DO [address] [place] [address] [phone] 07/11/2020 Imaging Radiology 08/22/2020 Office Visit Nephrology Gia White MD 21 [facility] [place] [address] [phone] 11/27/2020 Office Visit Pulmonary Celsa Tafoya CRNP 132 [facility] [place] [address] [phone] Health Maintenance Due Date Last Done Comments [...] Documents on File Type Date Recorded Patient Coating Inspector Expl 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
--- OUTSIDE RECORDS SUMMARY | 2023-06-01 05:22 | External Medical Summary | Summary of Care ---
Author Name Unknown Organization [place] [address] Care Team Providers Care Edging Machine Operator Name Role Phone Migue Whiteside DO Primary Care Provider Reason for Referral * Medication Prior Authorization (Routine) Status Reason Specialty Diagnoses / Procedures Referred By Contact Referred To Contact Pending Review Diagnoses Chronic pain syndrome Migue Whiteside DO [address] [place] [address] Reason for Visit * Reason Comments Medication Refill Encounter Details Date Type Department Care Team Description 05/06/2020 Telephone Family [facility] [address] [place] [address] Migue Whiteside DO [address] [place] [address] [phone] Medication Refill Allergies Active Allergy Reactions Severity [...] 3 08/30/2018 Active Blood Glucose Monitoring Suppl (EdvertTOUCH ULTRA 2) w/Device KIT Use to test [...] current use of insulin ([facility]) Inject 1.5 mg under the skin [...] 10/14/2014 Overview: ICD-10 update of inactive term [place] filter in place 08/19/2014 History of pulmonary [...] encounter Miscellaneous Notes * Telephone Encounter - Hermelinda Sher PHARM Tech - 05/06/2020 1:39 PM EDT P calling to advise pt's [place] for tramadol has been approved for open ended. They will fax this info to the office. Anika advised that it will probably reject for an opiate conflict and she advised that all the pharmacy has to do is an over ride. Released to pharmacy Thank You, Hermelinda Sher [facility] Safety Equipment Testing Specialist [facility] 05/06/2020, 1:39 PM * Telephone Encounter - Izabela Crump LPN - 05/06/2020 12:55 PM EDT OV notes faxed. * Telephone Encounter - Jayna Haji PHARM Tech - 05/06/2020 12:16 PM EDT Michael from [facility] is calling to advise [employer] sent a prior auth for pt's tramadol they will need further info faxed to [phone] before 4pm today for consideration. Thank you, Jayna Haji T Horticulture Instructor [facility] 05/06/2020, 12:16 PM * Telephone Encounter - Migue Whiteside DO - 05/06/2020 10:13 AM EDT Signed Prescriptions: Disp Refills traMADol (ULTRAM) 50 MG Tablet 90 Tab 0 Sig: Take 1 Tab by mouth every 8 hours as needed for Pain, Severe. Authorizing Provider: MIGUE WHITESIDE * Telephone Encounter - Linda Dexter LPN - 05/06/2020 8:40 AM EDT Pt in to see Lindaluis Gibbons and needs refill on the tramadol. documented in this encounter Plan of Treatment Upcoming Encounters Date Type Specialty Care Team Description 05/07/2020 [facility] Visit [facility] Rema Real LSW [address] [place] [address] [phone] 05/08/2020 Office Visit Family Medicine Migue Whiteside DO [address] [place] [address] [phone] 05/15/2020 Home Visit Family Medicine Magaly Morales, Community Health All Source Analyst [address] [place] [address] [phone] 05/28/2020 Office Visit Cardiology Marjorie Powell, PAMyraC 132 [facility] [address] [phone] 06/03/2020 Office Visit Dermatology Apple Kaminski MD [address] [facility] [place] [address] [phone] 06/03/2020 [facility] Visit [facility] [place] Vera Capellan RN 132 [place] [address] [phone] 06/25/2020 Office Visit Pharmacy [facility] [place] [address] [place] [address] 07/10/2020 Office Visit Orthopedics Zack Teague DO 132 [facility] [place] [address] [phone] 07/11/2020 Imaging Radiology 08/22/2020 Office Visit Nephrology Gia White MD 21 [place] [address] [phone] 11/27/2020 Office Visit Pulmonary Celsa [facility]afoya [facility] [address] [phone] Health Maintenance Due Date Last Done Comments [...] Documents on File Type Date Recorded Patient Eye Dropper Assembler Expl 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
--- OUTSIDE RECORDS SUMMARY | 2023-06-01 05:22 | External Medical Summary | Summary of Care ---
Author Name Unknown Organization [place] [address] Care Team Providers Care Sheet Metal Shop Supervisor Name Role Phone Stevo Kevin Ocampomelinda Primary Care Provider Reason for Visit * Reason Comments [facility]: Maintenance Encounter Details Date Type Department Care Team Description 04/22/2020 Water Supervisor [facility], [facility] 132 [facility] [place] [address] Rema Real, [facility] 132 [facility] [place] [address] [phone] Allergies Active Allergy Reactions Severity Noted Date Comments Pollen 05/18/2019 Heparin 09/04/2009 Heparin Induced Thrombocytopenia Empagliflozin Other (Please comment) Medium 05/17/2018 3 yeast infections in 6 weeks after starting Morphine And Related 09/16/1997 Hallucinations Tetanus Toxoid Other (Please comment) 06/15/2011 Passed out documented as of this encounter (statuses as of 04/22/2020) Medications Medication Sig Dispensed Refills Start Date [...] 3 08/30/2018 Active Blood Glucose Monitoring Suppl (Opax ULTRA 2) w/Device KIT Use to test [...] use of insulin ([facility]) Inject 1.5 mg under the skin once a week. 15 mL 3 12/18/2019 Active Nortriptyline HCl (PAMELOR) 50 MG CapsuleIndications:F ibromyalgia Take 1 Cap by mouth at bedtime. 90 Cap 3 12/18/2019 Active gabapentin (NEURONTIN) 300 MG CapsuleIndications:T ype 2 diabetes mellitus with hemoglobin A1c goal of 7.0%-8.0% ([facility]) Take 1 Cap by mouth 3 times [...] 30 mL 5 04/02/2020 Active DIURETIC TITRATION PLANIndications:Employment And Claims Aide zahra diastolic congestive heart failure (HCC) If no improvement on day 3, contact heart failure managing provider. 1 Each 0 04/08/2020 Active clonazePAM (KLONOPIN) 0.5 MG TabletIndications:An xiety state TAKE ONE TABLET BY MOUTH TWICE DAILY 60 Tab 0 04/16/2020 Active documented as of this encounter (statuses as of 04/22/2020) Active Problems Problem Noted Date Uncontrolled type [...] of recurrent major depressi ve disorder 08/26/2018 Thoracic back pain 07/25/2018 Chronic diastolic congestive heart failu re 06/12/2018 [...] as of this encounter (statuses as of 04/22/2020) Resolved Problems Problem Noted Date Resolved Date Other atherosclerosis of lorrie martinez arteries of extremities, left leg 02/26/2019 11/20/2019 Impetigo 09/27/2018 05/14/2019 Vaginal karmen 07/13/2018 08/26/2018 Hypervolemia 07/13/2018 08/26/2018 [...] as of this encounter (statuses as of 04/22/2020) Immunizations Name Administration Dates Next Due Pneumococcal [...] have Coronavirus / COVID-19? No / Unsure 04/21/2020 8:46 AM EDT documented as of this encounter Progress Notes * Rema Real LSW - 04/22/2020 1:45 PM EDT Did call [employer] Pharm[employer] service and confirmed coverage for [employer]. Will notify intake -ID number is [id number]. Followed up with [place] [phone] to discuss billing issues/ insurance issues impacting ability to obtain necessary supplies. Spoke with Estefany and she transferred to billing. STEFANY spoke with Debbie in billing and explained issue. She will e-mail investment manager and manager library and see if some financial assistance or waiver can be made. Someone will get back to . STEFANY to follow. documented in this encounter Plan of Treatment Upcoming Encounters Date Type Specialty Care Team Description 04/24/2020 Home Visit [facility] Brooke Jose RN [address] [place] [address] [phone] 05/08/2020 Office Visit Family Medicine Kevin Whiteside DO [address] [place] [address] [phone] 05/28/2020 Office Visit Cardiology Marjorie Powell PA-C [address] [place] [address] [phone] 06/03/2020 Office Visit Dermatology Apple Kaminski MD [address] [place] [address], [place] [address] [phone] 06/25/2020 Office Visit Pharmacy [facility] [place] [address] [place] [address] 07/10/2020 Office Visit Orthopedics Zack Teague DO [address] [place] [address] [phone] 07/11/2020 Imaging Radiology 11/27/2020 Office Visit Pulmonary Celsa Tafoya CRNP [address] [place] [address] [phone] Health Maintenance Due Date Last Done Comments [...] Documents on File Type Date Recorded Patient Edger Machine 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
--- OUTSIDE RECORDS SUMMARY | 2023-06-01 05:22 | External Medical Summary ---
Author Name Unknown Address [address] [place] [address] Phone Organization [facility] 132 [facility] [place] [address] Laboratory Report Ordering Provider Test Date Status AMPARO GUADALUPE 05/06/2020 08:46:00 Final Observation Date Value Abnormality Reference (Units ) Status WBC, Total 05/06/2020 09:30 11.16 Above high normal 4.00-10.80 (K/uL) Final RBC 05/06/2020 09:30 4.72 3.85-5.15 (M/uL) Final Hemoglobin 05/06/2020 09:30 14.5 12.0-15.3 (g/dL) Final HCT 05/06/2020 09:30 45.9 Above high normal 36.0-45.2 (%) Final MCV 05/06/2020 09:30 97.2 81.5-97.5 (fL) Final MCH 05/06/2020 09:30 30.7 27.0-34.0 (pg) Final MCHC 05/06/2020 09:30 31.6 Below low normal 32.0-36.0 (g/dL) Final RDW 05/06/2020 09:30 14.4 11.5-15.5 (%) Final Platelets 05/06/2020 09:30 302 140-400 (K/uL) Final MPV 05/06/2020 09:30 9.8 6.6-11.1 (fL) Final Segs 05/06/2020 09:30 55.7 40-75 (%) Final Lymphs % 05/06/2020 09:30 30.9 18-42 (%) Final Monos 05/06/2020 09:30 8.2 1-11 (%) Final Eosinophils 05/06/2020 09:30 4.7 0-6 (%) Final Basos 05/06/2020 09:30 0.5 0-2 (%) Final Neutrophils [#/volume] in Blood 05/06/2020 09:30 6.20 1.8-7.7 (K/uL) Final Lymphs, absolute 05/06/2020 09:30 3.45 1.0-4.8 (K/uL) Final Monos, Abs 05/06/2020 09:30 0.92 0.0-1.1 (K/uL) Final Eos, Abs 05/06/2020 09:30 0.53 0.0-0.7 (K/uL) Final Basos, Abs 05/06/2020 09:30 0.06 0.0-0.2 (K/uL) Final Performing Location [address] [place] [address]
--- OUTSIDE RECORDS SUMMARY | 2023-06-01 05:22 | External Medical Summary | Summary of Care ---
Author Name Unknown Organization [place] [address] Care Team Providers Care Eyelet Maker Name Role Phone Whiteside Kevin Ocampomelinda Primary Care Provider Reason for Visit * Reason Comments [facility]: Maintenance Encounter Details Date Type Department Care Team Description 04/24/2020 Home Visit [facility], [facility] 132 [facility] [place] [address] Vera Capellan, RN 132 [facility] [place] [address] [phone] Benign hypertensive heart and kidney disease with [...] as of this encounter (statuses as of 04/24/2020) Medications Medication Sig Dispensed Refills Start Date [...] 3 08/30/2018 Active Blood Glucose Monitoring Suppl (Swarmforce ULTRA 2) w/Device KIT Use to test [...] current use of insulin ([facility]) Inject 1.5 mg under the skin once a week. 15 mL 3 12/18/2019 Active Nortriptyline HCl (PAMELOR) 50 MG CapsuleIndications:F ibromyalgia Take 1 Cap by mouth at bedtime. 90 Cap 3 12/18/2019 Active gabapentin (NEURONTIN) 300 MG CapsuleIndications:T ype 2 diabetes mellitus with hemoglobin A1c goal of 7.0%-8.0% ([facility]) Take 1 Cap by mouth 3 times [...] 30 mL 5 04/02/2020 Active DIURETIC TITRATION PLANIndications:Senior Ui Designer zahra diastolic congestive heart failure (HCC) If no improvement on day 3, contact heart failure managing provider. 1 Each 0 04/08/2020 Active clonazePAM (KLONOPIN) 0.5 MG TabletIndications:An xiety state TAKE ONE TABLET BY MOUTH TWICE DAILY 60 Tab 0 04/16/2020 Active documented as of this encounter (statuses as of 04/24/2020) Active Problems Problem Noted Date Uncontrolled type [...] as of this encounter (statuses as of 04/24/2020) Resolved Problems Problem Noted Date Resolved Date [...] as of this encounter (statuses as of 04/24/2020) Immunizations Name Administration Dates Next Due Pneumococcal [...] have Coronavirus / COVID-19? No / Unsure 04/24/2020 2:04 PM EDT documented as of this encounter Last Filed Vital Signs Vital Sign Reading Time Taken Comments Blood Pressure 112/64 04/24/2020 2:07 PM EDT Pulse 85 04/24/2020 2:07 PM EDT Temperature 36.9 C (98.5 F) 04/24/2020 2:07 PM ED T Respiratory Rate 18 04/24/2020 2:07 PM EDT Oxygen Saturation 94% 04/24/2020 2:07 PM EDT Inhaled Oxygen Concentration - - Weight 144.7 kg (319 lb) 04/24/2020 2:07 PM EDT Height - - Body Mass Index 54.76 03/07/2020 10:37 AM EDT documented in this encounter Progress Notes * Vera Capellan RN - 04/24/2020 1:30 PM EDT [facility] Return Visit Date: 04/24/2020 Time: 1:25 PM Name: Stephanie Camp : 1955 Current Concerns: Patient seen for return visit Denies any increase in SOB. Denies cough. States she has "allergies" but nothing abnormal for her. Stays inside in the A/C as the heat makes it more difficult to manage SOB Weight has been stable, around 319 lbs Edema of BLE "good for me" - no increase in swelling noted Several small round red spots on left hand - states they started about 2 weeks ago, states they itch sometimes and feel like a burn when she touches them . She is going to call dermatology and see about getting an appt sooner than her next one in May. She has been apply hydrocortisone cream. Other than spots on hand, no other concerns at this time. Checking bsg TID and has insulin pump in place - no issues Physical Exam: BP 112/64 | Pulse 85 | Temp 98.5 | Resp 18 | Wt 319 lbs (144.697kg) | BMI 54.76 kg/m | BSA 2.56 m | SaO2 94% | LMP 03/11/2003 Pain 0 Physical Exam Constitutional: Appearance: She is obese. HENT: Nose: Nose normal. Neck: Musculoskeletal: Normal range of motion. Cardiovascular: Rate and Rhythm: Normal rate and regular rhythm. Pulses: Normal pulses. Heart sounds: Normal heart sounds. Pulmonary: Effort: Pulmonary effort is normal. Breath sounds: Normal breath sounds. Abdominal: General: Bowel sounds are normal. Palpations: Abdomen is soft. Tenderness: There is no abdominal tenderness. Musculoskeletal: Right lower leg: Edema (mild, non-pitting) present. Left lower leg: Edema (mild, non-pitting) present. Skin: General: Skin is warm and dry. Neurological: Mental Status: She is alert and oriented to person, place, and time. Problems/Symptoms: Review of Systems Constitutional: Negative. HENT: Negative. Eyes: Negative. Respiratory: Positive for shortness of breath (AVENDAÑO - at baseline). Cardiovascular: Positive for leg swelling. Genitourinary: Negative. Musculoskeletal: Positive for arthralgias and gait problem. Psychiatric/Behavioral: Negative. Medication Reconciliation: (See medication list) Does patient take medications as ordered: Yes Patient Well Being: PHQ2/9: @[id number]@ No change in living situation Denies falls Feels depressed at times d/t covid isolation but has started seeing family again with some limitations so reports depression improving, family visited over weekend Advanced Care Planning: POLST. Patient's Goals of Care: 1. L knee surgery 2. Continue to lose wt 3. Get stronger Reinforcement/Education: DIABETES: -Blood sugar testing schedule: Twice [...] medication regimen. Timing., Dosing. and Purspose. Treatment/Plan: Meds as ordered/reviewed Ambulate with roller walker at ALL times o2 2lnc qhs and day prn cpap with 2l qhs Apap, tramadol and topical pain relievers for pain No NSAIDS Low na, ccd diet, 1.5L fluid restriction Ck bsgs and record tid Continue with insulin pump Wear b/l le support hose-on day/off night Zaroxolyn prn for fluid overload-take only as advised DRY [id number] Home Interventions Provided: Home Intervention: Other; Evaluation Reinforced current Plan of Care, including self-management and medication regimen Patient's 'Red Flags': 1. Wt increase of 3 lbs in 24 hrs or 5 lbs in one week 2. Increased edema 3. Increased SOB Patient Needs to Remember: Call [facility] at with any new or worsening health concerns or problems, red flag symptoms. Referrals Needed: Other None Follow Up: Patient encouraged to call the intake phone number for all urgent but not emergent issues. Is the patient new to [facility] within the last 30 days? No, Assess appropriateness for upcoming telehealth visits. Cancel telehealth visits & schedule home visit with care steam tank operator(s)as indicated. Provider is in agreement with Plan of Care: Yes Scheduled to follow up with patient in 3 weeks with LES and 3 weeks after that with CORI. Vera Capellan RN 04/24/2020 1:25 PM documented in this encounter Plan of Treatment Upcoming Encounters Date Type Specialty Care Team Description 05/08/2020 [facility] Visit [facility] [address] [phone] 05/15/2020 Home Visit Family Magaly Guerra, Community Health Staff Veterinarian [address] [place] [address] [phone] 05/28/2020 Office Visit Cardiology Marjorie Powell PA-C 132 [facility] [place] [id number] 06/03/2020 Office Visit Dermatology Apple Kaminski MD [address] [facility], [place] [address] [phone] 06/25/2020 Office Visit Pharmacy [facility] [place] 132 [facility] [place] [address] 07/10/2020 Office Visit Orthopedics Zack Teague DO [facility] [place] [address] 07/11/2020 Imaging Radiology 11/27/2020 Office Visit Pulmonary Celsa Tafoya CRNP [facility] [place] [address] Health Maintenance Due Date [...] on File Type Date Recorded Patient Consulting Manager Expl 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
--- OUTSIDE RECORDS SUMMARY | 2023-06-01 05:22 | External Medical Summary | Summary of Care ---
Author Name Unknown Organization [place] [address] Care Team Providers Care Twister Doffer Name Role Phone Migue Whiteside DO Primary Care Provider Reason for Referral * Medication Prior Authorization (Routine) Status Reason Specialty Diagnoses / Procedures Referred By Contact Referred To Contact Pending Review Diagnoses Chronic pain syndrome Migue Whiteside DO [address] [place] [address] Reason for Visit * Reason Comments Medication Refill Encounter Details Date Type Department Care Team Description 05/06/2020 Telephone Family [facility] [address] [place] [address] Migue Whiteside DO [address] [place] [address] [phone] Medication Refill Allergies Active Allergy Reactions Severity [...] 3 08/30/2018 Active Blood Glucose Monitoring Suppl (ETF.comTOUCH ULTRA 2) w/Device KIT Use to test [...] current use of insulin ([facility]) Inject 1.5 mg under the skin once a week. 15 mL 3 12/18/2019 Active Nortriptyline HCl (PAMELOR) 50 MG CapsuleIndications: Fibromyalgia Take 1 Cap by mouth at bedtime. 90 Cap 3 12/18/2019 Active gabapentin (NEURONTIN) 300 MG CapsuleIndications: Type 2 diabetes mellitus with hemoglobin A1c goal of 7.0%-8.0% ([facility]) Take 1 Cap by mouth [...] 10/14/2014 Overview: ICD-10 update of inactive term [place] filter in place 08/19/2014 History of pulmonary [...] - 05/06/2020 12:16 PM EDT Michael from [facility] is calling to advise [employer] sent a prior auth for pt's tramadol they will need further info faxed to [phone] before 4pm today for consideration. Thank you, Jayna Haji T Post Doctoral Researcher [employer] 05/06/2020, 12:16 PM * Telephone Encounter - [...] [facility] Rema Real, ELISABET [address] [place] [address] [phone] 05/08/2020 Office Visit Family Medicine Migue Whiteside DO [address] [place] [address] [phone] 05/15/2020 Home Visit Family Medicine Magaly Morales, Community Health Head Orthopedic Team Physician [address] [place] [address] [phone] 05/28/2020 Office Visit Cardiology Marjorie Powell PA-C [address] [place] [address] [phone] 06/03/2020 Office Visit Dermatology Apple Kaminski MD [address] [place] [address], [place] [address] [phone] 06/03/2020 Home Visit [facility] Vera Capellan RN [address] [place] [address] [phone] 06/25/2020 Office Visit Pharmacy [facility] [place] [address] [place] [address] 07/10/2020 Office Visit Orthopedics Zack Teague DO [address] [place] [address] [phone] 07/11/2020 Imaging Radiology 08/22/2020 Office Visit Nephrology Gia White MD [address] [facility] [place] [address] 11/27/2020 Office Visit Pulmonary Celsa Tafoya CRNP [address] [place] [address] [phone] Health Maintenance Due Date Last Done Comments [...] Documents on File Type Date Recorded Patient Conference Concierge Expl 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
--- OUTSIDE RECORDS SUMMARY | 2023-06-01 05:22 | External Medical Summary | Summary of Care ---
Author Name Unknown Organization [place] [address] Care Team Providers Care Applique Sewer Name Role Phone Stevo Kevin Ocampomelinda Primary Care Provider Reason for Visit * Reason Comments Test Results Encounter Details Date Type Department Care Team Description 05/07/2020 Telephone Family Practice [facility] [address] [place] [address] Rema Gibbons PA-C [address] [employer] [place] [address] Test Results Allergies Active [...] 3 08/30/2018 Active Blood Glucose Monitoring Suppl (LlesiantUCH ULTRA 2) w/Device KIT Use to test [...] use of insulin ([facility]) Inject 1.5 mg under the skin once a week. 15 mL 3 12/18/2019 Active Nortriptyline HCl (PAMELOR) 50 MG CapsuleIndications:F ibromyalgia Take 1 Cap by mouth at bedtime. 90 Cap 3 12/18/2019 Active gabapentin (NEURONTIN) 300 MG CapsuleIndications:T ype 2 diabetes mellitus with hemoglobin A1c goal of 7.0%-8.0% ([facility]) Take 1 Cap by mouth 3 [...] 30 mL 5 04/02/2020 Active DIURETIC TITRATION PLANIndications:Commodity Director zahra diastolic congestive heart failure (HCC) [...] Telephone Encounter - Linda Dexter LPN - 05/07/2020 10:13 AM EDT Pt called and aware of test results and will keep apt with PCP on . * Telephone Encounter - Rema Gibbons PA-C - 05/07/2020 9:27 AM EDT Please let patient know Kidney function is just a little bit worse Thyroid TSH slightly elevated but free T 4 normal (typically no change to medications) WBC slightly elevated but similar to prior Recommend she keep follow up appointment with Dr. Whiteside tomorrow. documented in this encounter Plan of Treatment Upcoming Encounters Date Type Specialty Care Team Description 05/07/2020 [facility] Visit [facility] Rema Real LSW [address] [place] [address] [phone] 05/08/2020 Office Visit Family Medicine Kevin Whiteside DO [address] [place] [address] [phone] 05/15/2020 Home Visit Family Medicine Andrew Magaly Haylie, Community Health Technologies Division Chair [address] [place] [address] [phone] 05/28/2020 Office Visit Cardiology Marjorie Powell PA-C 132 [place] [address] [phone] 06/03/2020 Office Visit Dermatology Apple Kaminski MD [address] [place] [address] [phone] 06/03/2020 Home Visit [facility] [place] Vera Capellan RN 132 [facility] [place] [address] [phone] 06/25/2020 Office Visit Pharmacy [facility] [place] 132 [facility] [place] [address] 07/10/2020 Office Visit Orthopedics Zack Teague DO 132 [facility] [place] [address] [phone] 07/11/2020 Imaging Radiology 08/22/2020 Office Visit Nephrology Gia White MD [address] [place] [address] [phone] 11/27/2020 Office Visit Pulmonary Celsa Tafoya CRNP 132 [facility] [place] [address] [phone] Health Maintenance Due Date Last Done Comments [...] on File Type Date Recorded Patient Adjunct Professor Of Law Expl 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
--- OUTSIDE RECORDS SUMMARY | 2023-06-01 05:22 | External Medical Summary ---
Author Name Unknown Address [facility] [place] [address] Phone Organization K01:[place] [id number] Laboratory Report Ordering Provider Test Date Status AMPARO GUADALUPE 05/06/2020 08:46:00 Final Observation Date Value Abnormality Reference (Units ) Status TSH 05/06/2020 14:23 5.35 Above high normal 0.27- 4.2 (uIU/mL) Final T4, Free 05/06/2020 14:44 1.36 0.9-1.7 (ng/d L) Final Performing Location [address] [address]
--- OUTSIDE RECORDS SUMMARY | 2023-06-01 05:22 | External Medical Summary | Summary of Care ---
Author Name Unknown Organization [place] [address] Care Team Providers Care Environmental Professional Name Role Phone Stevo Kevin Ocampomelinda Primary Care Provider Reason for Visit * Reason Comments Acute abd pains for 2 week s Encounter Details Date Type Department Care Team Description 05/06/2020 Office Visit Family [facility] [address] [place] [address] Rema Gibbons PA-C [address] [employer] [address] [place] [address] Abdominal pain, generalized*; Postsurgical hypothyroidism; Chronic pain syndrome Allergies Active Allergy Reactions [...] a day. 400 Strip 3 8 Active Blood Glucose Monitoring Suppl ([employer] ULTRA 2) w/Device KIT Use to test BG values 1 Kit 0 9 Active clobetasol propionate (TEMOVATE) 0.05 % ointmentIndications [...] at bedtime. 90 Cap 3 0 Active gabapentin (NEURONTIN) 300 MG CapsuleIndications: Type 2 diabetes mellitus with hemoglobin A1c goal of 7.0%-8.0% ([facility]) Take 1 Cap by mouth 3 times a day. 270 Cap 3 0 Active insulin aspart (INSULIN [...] mL 0 0 Active colchicine 0.6 MG TabletIndications:L eukocytoclastic vasculitis (HCC) Take 1/2 tab daily 45 Tab 1 0 Active metolazone (ZAROXOLYN) 2.5 MG Tablet Take as directed by physician 5 Tab 0 0 Active furosemide (LASIX) 40 MG TabletIndications:C [...] a day. 90 Tab 3 0 Active traMADol (ULTRAM) 50 MG TabletIndications:C hronic pain syndrome Take 1 Tab by mouth every 8 hours as needed for Pain, Severe. 90 Tab 0 0 Active insulin aspart (NOVOLOG) 100 UNIT/ML injection use in insulin pump up to 200 units per day as directed 30 mL 5 0 Active DIURETIC TITRATION PLANIndications:Chr onic diastolic congestive heart failure (HCC) If no improvement on day 3, contact heart failure managing provider. 1 Each 0 0 Active clonazePAM (KLONOPIN) 0.5 MG TabletIndications:A nxiety state TAKE ONE TABLET BY MOUTH TWICE DAILY 60 Tab 0 0 Active dicyclomine (BENTYL) 20 MG Tablet Take 1 Tab by mouth 4 times a day as needed for Pain, Mild. For abdominal pain 120 Tab 11 0 Active dicyclomine (BENTYL) 20 MG Tablet 0 0 05/06/20 20 Discontinued documented as of this encounter [...] Sign Reading Time Taken Comments Blood Pressure 112/60 05/06/2020 8:05 AM EDT Pulse 91 05/06/2020 8:05 AM EDT Temperature 36.1 C (97 F) 05/06/2020 8:05 AM EDT Respiratory Rate 16 05/06/2020 8:05 AM EDT Oxygen Saturation 94% 05/06/2020 8:05 AM EDT Inhaled Oxygen Concentration - - Weight 144.7 kg (319 lb) 05/06/2020 8:05 AM EDT Height 162.6 cm (5' 4") 05/06/2020 8:05 AM EDT Body Mass Index 54.76 05/06/2020 8:05 AM EDT documented in this encounter Progress Notes * Rema Gibbons PA-C - 05/06/2020 8:26 AM EDT Subjective Stephanie Camp is a 65 year old female. Chief Complaint Patient presents with Acute abd pains for 2 weeks HPI: No fevers or chills. Abdominal pain for 2 months. No diarrhea. Pain is diffuse over the abdomen and low back and into the right groin. Some dysuria which improved. No urinary symptoms. No chest pain or dyspnea. She was initially seen in the ER and had normal CT scan abdomen/pelvis. She followed up with Sherry Barr. Abdominal pain got a little better but worsened again over the last 2 weeks. She feels like a muscle strain that she did a lot of sit ups. No nausea, vomiting or diarrhea. She does have chronic pain, fibromyalgia. She has chronic back pain. She states she needs knee surgery but they won't do it unless she loses weight. She states her orthopedic doctor doesn't want her doing PT for her back because of her knee. She does not want to see Dr. Ahn to consider epidural injections. PMH: Patient Active Problem List Diagnosis Code Dyslipidemia E78.5 ELLIE (generalized anxiety disorder) F41.1 Postsurgical hypothyroidism E89.0 Nocturnal hypoxemia G47.34 ELISSA (obstructive sleep apnea) G47.33 Venous insufficiency I87.2 HTN, goal below 130/80 I10 History of pulmonary embolus (PE) Z86.711 Statin intolerance Z78.[address] Z95.828 Type 2 diabetes mellitus with hemoglobin A1c goal of 7.0%-8.0% ([facility]) E11.9 Fibromyalgia M79.7 Abnormality of gait R26.9 Restless legs syndrome G25.81 Gastroesophageal reflux disease with esophagitis K21.0 Body mass index (BMI) of 50.0 to 59.9 in adult ([facility]) Z68.43 Controlled substance agreement signed Z79.899 Chronic diastolic congestive heart failure ([facility]) I50.32 Mild episode of recurrent major depressive disorder ([facility]) F33.0 Lumbar radiculopathy M54.16 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, NYHA class 1 and CKD stage 3 ([facility]) I13.0, I50.30, N18.3 Chronic respiratory failure with hypoxia ([facility]) J96.11 Hyperparathyroidism, secondary renal ([facility]) N25.81 Vasculitis ([facility]) I77.6 Primary osteoarthritis of left knee M17.12 Uncontrolled type 2 diabetes mellitus with stage 4 chronic kidney disease, with long-term current use of insulin ([facility]) E11.22, E11.65, N18.4, Z79.4 Current Outpatient Medications Medication Sig Dispense Refill clonazePAM (KLONOPIN) 0.5 MG Tablet TAKE ONE TABLET BY MOUTH TWICE DAILY 60 Tab 0 DIURETIC TITRATION PLAN If no improvement on day 3, contact heart failure managing provider. 1 Each 0 insulin aspart (NOVOLOG) 100 UNIT/ML injection use in insulin pump up to 200 units per day as directed 30 mL 5 dicyclomine (BENTYL) 20 MG Tablet DULoxetine (CYMBALTA) 30 MG CPEP Take 1 [...] by mouth at bedtime. 90 Tab 3 traMADol (ULTRAM) 50 MG Tablet Take 1 Tab by mouth every 8 hours as needed for Pain, Severe. 90Tab 0 levothyroxine (LEVOXYL) 25 MCG Tablet TAKE ONE TABLET BY MOUTH IN THE MORNING AT LEAST 30 MINUTES PRIOR TO BREAKFAST OR OTHER MEDS 90 Tab 1 furosemide (LASIX) 40 MG Tablet Take 2 Tabs by mouth daily. 180 Tab 3 metolazone (ZAROXOLYN) 2.5 MG Tablet [...] 60 g 1 Blood Glucose Monitoring Suppl ([employer] ULTRA 2) w/Device KIT Use to test [...] (HCC) ELLIE (generalized anxiety disorder) 09/13/2009 Goiter [place] filter in place 08/19/2014 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HCC) [...] TRACHEOSTOMY PLANNED performed by DANNY HOLDER at [facility] KNEE ARTHROSCOPY/DEBRIDEMENT 07/[address] PERMANENT GASTROSTOMY TUBE 09/06/09 GASTROSTOMY WITH CONSTUCTION GASTRIC TUBE performed by AMADOU NUNEZ at [facility] REMOVAL OF THYROID GLAND 06/15/2011 THYROIDECTOMY INCLUDING SUBSTERNAL THYROID CERVICAL APPROACH performed by DANNY HOLDER at [facility] REMOVE GALLBLADDER 09/06/09 CHOLECYSTECTOMY performed by AMADOU NUNEZ at [facility] REPAIR RECURRENT INCISIONAL HERNIA 1998 REVISION [...] level: Not on file Occupational History 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: [employer] 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 Employer: [employer] Social Needs Financial resource strain: Not on file Food insecurity: Worry: Never true Inability: Never true Transportation needs: Medical: Not on file Non-medical: Not on file Tobacco Use Smoking status: Former Smoker Packs/day: 1.00 Years: 15.00 Pack years: 15.00 Last attempt to quit: 08/26/1997 Years since quittin.7 Smokeless tobacco: Never Used Substance and Sexual Activity Alcohol use: Not Currently Comment: rare Drug use: No Sexual activity: Not Currently Lifestyle Physical activity: Days per week: Not on file Minutes per session: Not on file Stress: Not on file Relationships Social connections: Talks on phone: Not on file Gets together: Not on file Attends amish service: Not on file Active member of club or organization: Not on file Attends meetings of clubs or organizations: Not on file Relationship status: Not on file Intimate partner violence: Fear of current or ex partner: Not on file Emotionally abused: Not on file Physically abused: Not on file Forced sexual activity: Not on file Other Topics Concern Not on file Social History Narrative 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 Negative for chills and fever. Respiratory: Negative for cough, shortness of breath and wheezing. Cardiovascular: Negative for chest pain and palpitations. Gastrointestinal: Positive for abdominal pain. Negative for diarrhea, nausea and vomiting. Genitourinary: Negative for dysuria. Musculoskeletal: Positive for arthralgias, back pain, gait problem and myalgias. Neurological: Positive for weakness. Negative for numbness. Objective BP 112/60 | Pulse 91 | Temp (Src) 97 (Tympanic) | Resp 16 | Ht 5' 4" (1.626m) | Wt 319 lbs (144.697kg) | BMI 54.76 kg/m | BSA 2.56 m | SaO2 94% | LMP 03/11/2003 Physical Exam Vitals signs and nursing note reviewed. Constitutional: General: She is not in acute distress. Appearance: Normal appearance. She is not ill-appearing, toxic-appearing or diaphoretic. HENT: Head: Normocephalic and atraumatic. Cardiovascular: Rate and Rhythm: Normal rate and regular rhythm. Heart sounds: No murmur. No friction rub. No gallop. Pulmonary: Effort: Pulmonary effort is normal. Breath sounds: Normal breath sounds. No wheezing, rhonchi or rales. Abdominal: General: Abdomen is flat. Palpations: Abdomen is soft. Tenderness: There is generalized abdominal tenderness. Neurological: Mental Status: She is alert. ASSESSMENT/PLAN: Abdominal pain, generalized (Primary) ?MSK pain. She declines repeat abdomen pelvis CT Pain is diffuse and worse with engaging abdominal muscles - CBC/DIFF; Future; Expected date: 05/06/2020 - COMPR METAB PANEL; Future; Expected date: 05/06/2020 Postsurgical hypothyroidism - TSH WITH FREE T4 IF INDICATED; Future; Expected date: 05/06/2020 Chronic pain syndrome Patient declines referrals to pain medicine or PT States she just wants to be able to sleep Would like refill of tramadol; will defer to PCP as she will see Dr. Whiteside in 2 days Recommend weight loss, exercise but patient does not seem to be motivated to make lifestyle changes Other orders - dicyclomine (BENTYL) 20 MG Tablet; Take 1 Tab by mouth 4 times a day as needed for Pain, Mild. For abdominal pain keep follow up with PCP in 2 days ER if worsening symptoms Rema iGbbons PA-C documented in this encounter Nursing Notes * Linda Dexter LPN - 05/06/2020 8:05 AM EDT Has abd pains for 2 weeks, has pain all the time in any position. The pain can be sharp and dull and is under lower abd and stomach feels sore and pain travels to he low back. documented in this encounter Plan of Treatment Upcoming Encounters Date Type Specialty Care Team Description 05/07/2020 Home Visit [facility] Rema Real LSW [address] [facility] [place] [address] [phone] 05/08/2020 Office Visit Family Medicine Kevin Whiteside, DO [address] [facility] [place] [address] [phone] 05/15/2020 Home Visit Family Medicine Magaly Morales, [facility] [employer] [address] [place] [address] [phone] 05/28/2020 Office Visit Cardiology Marjorie Powell, PA-C [address] [facility] [place] [address] [phone] 06/03/2020 Office Visit Dermatology Apple Kaminski MD [address] [facility] [address] [phone] 06/03/2020 Home Visit [facility] [place] Vera Capellan RN [address] [facility] [place] [address] [phone] 06/25/2020 Office Visit Pharmacy [facility] [place] [address] [facility] [place] [address] 07/10/2020 Office Visit Orthopedics Zack Teague, [address] [facility] [place] [address] [phone] 07/11/2020 Imaging Radiology 08/22/2020 Office Visit Nephrology Gia White MD [address] [place] [address] [phone] 11/27/2020 Office Visit Pulmonary Celsa Tafoya CRNP [address] [facility] [place] [address] [phone] Pending Results Name Type Priority Associated Diagnoses Date /Time CBC/DIFF Lab Routine Abdominal pain, generalized 05/06/2020 8:46 AM EDT COMPR METAB PANEL Lab Routine Abdominal pain, generalized 05/06/2020 8:46 AM EDT TSH WITH FREE T4 IF INDICATED Lab Routine Postsurgical hypothyroidism 05/06/2020 8:46 AM EDT Scheduled Orders Name Type Priority Associated Diagnoses Orde r Schedule CBC/DIFF Lab Routine Abdominal pain, generalized Expected: 05/06/2020 (Approximate), Expires: 05/06/2021 COMPR METAB PANEL Lab Routine Abdominal pain, generalized Expected: 05/06/2020 (Approximate), Expires: 05/06/2021 TSH WITH FREE T4 IF INDICATED Lab Routine Postsurgical hypothyroidism Expected: 05/06/2020 (Approximate), Expires: 05/06/2021 Health Maintenance Due Date Last Done Comments [...] as of this encounter Visit Diagnoses Diagnosis Abdominal pain, generalized- Primary Postsurgical hypothyroidism Chronic pain syndrome documented in this encounter Advance Directives Documents on File Type Date Recorded Patient Electronics Inspector Expl 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
--- OUTSIDE RECORDS SUMMARY | 2023-06-01 05:22 | External Medical Summary ---
Author Name Unknown Address [address] [facility] [place] [address] Phone Organization K0[facility] [address] [facility] [address] Laboratory Report Ordering Provider Test Date Status COLLINSAMPARO 05/06/2020 08:46:00 Final Observation Date Value Abnormality Reference (Units ) Status BUN 05/06/2020 10:26 38 Above high normal 6-20 (mg/dL) Final Creatinine 05/06/2020 10:26 2.0 Above high normal 0.5- 1.0 (mg/dL) Final E Glom Filt Rate 05/06/2020 10:26 26.0 Below low normal >60 Final Performing Location [facility] [address] [place] [address]
--- OUTSIDE RECORDS SUMMARY | 2023-06-01 05:23 | External Medical Summary | Summary of Care ---
Author Name Unknown Organization [facility] [address] Care Team Providers Care Beveller Operator Name Role Phone Stevo Kevin Ocampomelinda Primary Care Provider Reason for Visit * Reason Comments [facility]: Maintenance Encounter Details Date Type Department Care Team Description 04/21/2020 Japanese Professor [facility], [facility] [address] [facility] [place] [address] Rema Real, [facility] [address] [facility] [place] [address] [phone] Allergies Active Allergy Reactions Severity Noted Date Comments Pollen 05/18/2019 Heparin 09/04/2009 Heparin Induced Thrombocytopenia Empagliflozin Other (Please comment) Medium 05/17/2018 3 yeast infections in 6 weeks after starting Morphine And Related 09/16/1997 Hallucinations Tetanus Toxoid Other (Please comment) 06/15/2011 Passed out documented as of this encounter (statuses as of 04/21/2020) Medications Medication Sig Dispensed Refills Start Date [...] 3 08/30/2018 Active Blood Glucose Monitoring Suppl ([employer] ULTRA 2) w/Device KIT Use to test [...] use of insulin ([facility]) Inject 1.5 mg under the skin once a week. 15 mL 3 12/18/2019 Active Nortriptyline HCl (PAMELOR) 50 MG CapsuleIndications:F ibromyalgia Take 1 Cap by mouth at bedtime. 90 Cap 3 12/18/2019 Active gabapentin (NEURONTIN) 300 MG CapsuleIndications:T ype 2 diabetes mellitus with hemoglobin A1c goal of 7.0%-8.0% ([facility]) Take 1 Cap by [...] 30 mL 5 04/02/2020 Active DIURETIC TITRATION PLANIndications:Bean Weigher zahra diastolic congestive heart failure (HCC) If no improvement on day 3, contact heart failure managing provider. 1 Each 0 04/08/2020 Active clonazePAM (KLONOPIN) 0.5 MG TabletIndications:An xiety state TAKE ONE TABLET BY MOUTH TWICE DAILY 60 Tab 0 04/16/2020 Active documented as of this encounter (statuses as of 04/21/2020) Active Problems Problem Noted Date Uncontrolled type [...] as of this encounter (statuses as of 04/21/2020) Resolved Problems Problem Noted Date Resolved Date [...] as of this encounter (statuses as of 04/21/2020) Immunizations Name Administration Dates Next Due Pneumococcal [...] Progress Notes * Rema Real LSW - 04/21/2020 9:38 AM EDT STEFANY rec'd referral from RN NORMA to assist with obtaining equipment for Stephanie for O2 and CPAP. STEFANY called [facility] who reported problems with insurance, no coverage and bill owed for 915.00 which was sent to [facility]. They are willing to send O2 tubing but not CPAP as this is an order and costly. They gave [facility] number stating Stephanie will need to call. Audit systems . STEFANY called Mira Duong to consult with her. We agreed for STEFANY to call Stephanie and maintain contact with Mira.STEFANY called Stephanie and she reported bills were result of changing insurances. She thought coverage would be retroactive. She does not have money to pay bill. She reports having Private Outlet as coverage for now. She agreed for STEFANY to follow up with [facility] regarding new insurance coverage and see what can be worked out. If not she will likely choose to change equipment companies. documented in this encounter Plan of Treatment Upcoming Encounters Date Type Specialty Care Team Description 04/24/2020 Home Visit [facility] Brooke Jose, RN [address] [facility] [place] [address] [phone] 05/08/2020 Office Visit Family Medicine Kevin Whiteside, DO [address] [place] [address] [phone] 05/28/2020 Office Visit Cardiology Marjorie Powell PA-C [address] [place] [address] [phone] 06/03/2020 Office Visit Dermatology Apple Kaminski MD [address] [facility] [place] [address] [phone] 06/25/2020 Office Visit Pharmacy [facility] [address] [place] [address] 07/10/2020 Office Visit Orthopedics Zack Teague, DO [address] [place] [address] [phone] 07/11/2020 Imaging Radiology 11/27/2020 Office Visit Pulmonary Celsa Tafoya CRNP [address] [place] [address] [phone] Health Maintenance Due Date Last Done Comments [...] Documents on File Type Date Recorded Patient Premium Cancellation Clerk Expl 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
--- OUTSIDE RECORDS SUMMARY | 2023-06-01 05:23 | External Medical Summary | Summary of Care ---
Author Name Unknown Organization [place] [address] Care Team Providers Care Belt Puncher Name Role Phone Kevin Whiteside DO Primary Care Provider Reason for Visit * Reason Comments [facility]: Acute Encounter Details Date Type Department Care Team Description 04/08/2020 Telephone [facility], [facility] [address] [facility] [place] [address] [facility] Nurse [facility] [address] [place] [address] [phone] [facility]: Acute Allergies Active Allergy Reactions Severity Noted Date Comments Pollen 05/18/2019 Heparin 09/04/2009 Heparin Induced Thrombocytopenia Empagliflozin Other (Please comment) Medium 05/17/2018 3 yeast infections in 6 weeks after starting Morphine And Related 09/16/1997 Hallucinations Tetanus Toxoid Other (Please comment) 06/15/2011 Passed out documented as of this encounter (statuses as of 04/08/2020) Medications Medication Sig Dispensed Refills Start Date [...] 3 08/30/2018 Active Blood Glucose Monitoring Suppl ([employer] ULTRA 2) w/Device KIT Use to test [...] insulin ([facility]) Inject 1.5 mg under the [...] OTHER MEDS 90 Tab 1 02/28/2020 Active clonazePAM (KLONOPIN) 0.5 MG TabletIndications:An xiety state TAKE ONE TABLET BY MOUTH TWICE DAILY 60 Tab 0 03/04/2020 Active DULoxetine (CYMBALTA) 30 MG CPEP Take [...] 30 mL 5 04/02/2020 Active DIURETIC TITRATION PLANIndications:Pinion And Wheel Truer zahra diastolic congestive heart failure (HCC) If no improvement on day 3, contact heart failure managing provider. 1 Each 0 04/08/2020 Active documented as of this encounter (statuses as of 04/08/2020) Active Problems Problem Noted Date Uncontrolled type [...] Overview: ICD-10 update of inactive term [place] filter in place 08/19/2014 History of pulmonary [...] as of this encounter (statuses as of 04/08/2020) Resolved Problems Problem Noted Date Resolved Date [...] as of this encounter (statuses as of 04/08/2020) Immunizations Name Administration Dates Next Due Pneumococcal [...] have Coronavirus / COVID-19? No / Unsure 03/24/2020 3:00 PM EDT documented as of this encounter Miscellaneous Notes * Telephone Encounter - Shira Hernandez RN - 04/08/2020 10:41 AM EDT TC to the patient to discuss the C recommendations. She verbalizes understanding of same and is able to repeat them back to me correctly. Phone call scheduled for tomorrow with the DYNAMICS AX SOLUTION ARCHITECT. * Telephone Encounter - Don Tomas MD - 04/08/2020 10:10 AM EDT Below noted Patient reports weight gain of 10 lbs Over the past week with edema. She has peripheral edema BLE .+ abdominal distention. Mild AVENDAÑO. She has been using oxygen at 2 L /min as needed. History of diastolic heart failure. hgb 13.5 09/10/19 Medications include Furosemide 80 mg daily. Please advise the followin) I completed a DTP 2) activate DTP 3) DYNAMICS AX SOLUTION ARCHITECT call tomorrow 4) patient is scheduled to be seen on 04/15/20 by brooke barnett RN. If not improving , she should be seen earlier. 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 HPI: Stephanie Camp is a 64 year old old female that is calling [facility] to report herweight is up again to 326. She reports she has gained approx. 10# over the past week. She does haveperipheral edema BLE_RLE>LLE ip to the mid calf area. She reports that she does have mild abdominal distention but no SOB. Mild AVENDAÑO is present. She is using O2@ 2L/min as needed. She reports that she is monitoring her sodium and fluid intake closely. She has metolazone ordered but states she as not taken it in some time. } Nursing Assessment: Patient's chief complaint for this call: Edema Location of edema: Leg(s) below knees Describe patient's edema: Worsened from baseline Edema improves with: Other, Currently not improving History of blood clot? (e.g., deep vein thrombosis or pulmonary embolism) No Patient currently has the following symptoms: Other, none of the above Patient previously told they have heart failure or congestive heart failure:Yes Patient weighs self at same time each day: Yes Weight gain in the past 24 hours: Yes, 10 lbs past week Weight gain in the past week: Yes Patient weighs self at the same time each day: Yes Patient takes a 'dry weight' (prior to eating/drinking): Yes Number of doses of diuretic medication patient has missed in the past week: none Patient has increased consumption of salty foods in the past 3 days: No Patient has a diuretic titration protocol (DTP): No console assembler the patient has seen in the past 48 hours: Not seen Pain Denies pain Baseline Assessment Able to performing ADLs at baseline (walking, daily tasks, etc.): Yes Chief Complaint is related to a chronic condition: Yes Chronic Condition: HF Patient prescribed oxygen? Yes, 2L/min, using as prescribed. Medication Reconciliation: (See medication list) Received flu shot this season: Unknown Taking medication as ordered: Yes Medications ordered/taking to treat reason for call: Yes, PRN medication(s) has prn metolazone Heart failure symptoms: Unknown COPD exacerbation symptoms: No Reinforcement Education: Continue present plan of care Will defer to [facility] and PCP for further orders Treatment/Plan: (need to report) Level of call: Non-Acute Recommended treatment plan: as noted Call back instructions provided to patient. documented in this encounter Plan of Treatment Upcoming Encounters Date Type Specialty Care Team Description 04/09/2020 Scheduled Telephone [facility], [facility] [address] [facility] [place] [address] [phone] 04/18/2020 Home Visit [facility] Brooke Barnett RN [address] [place] [address] [phone] 05/08/2020 Office Visit Family Medicine Keivn Whiteside, [address] [place] [address] [phone] 05/28/2020 Office Visit Cardiology Marjorie Powell PA-C [address] [place] [address] [phone] 06/03/2020 Office Visit Dermatology Apple Kaminski MD [address] [place] [address], [place] [address] [phone] 06/25/2020 Office Visit Pharmacy [facility] [place] [address] [place] [address] 07/10/2020 Office Visit Orthopedics Zack Teague, [address] [place] [address] [phone] 07/11/2020 Imaging Radiology 11/27/2020 Office Visit Pulmonary Celsa Tafoya CRNP [address] [place] [address] [phone] Health Maintenance Due Date Last Done Comments Pneumococcal Vaccine: Pediatrics (0 to 5 Years) and At-Risk Patients (6 to 64 Years) (3 of 3 - PCV13) 08/22/2010 08/22/2009, 06/15/2006 Zoster Vaccines (3 of 3) 01/02/2020 11/07/2019, 11/24 *TSH FOR THYROID MEDICATION MONITORING YEARLY 03/16/2020 DIABETES-EYE EXAM 04/05/2020 04/05/2019, (Done elsewhere), 12/18/2009, Additional history exists Influenza Vaccine (FLU shot) (#1) 2020 07/23/2019, 06/12/2018, 06/12/2018, Additional history exists BREAST CANCER SCREENING DISCUSSION YEARLY AGES 40-75 07/10/2020 07/10/2019, 06/23/2018, 05/09/2015, Additional history exists DIABETES-HGBA1C EVERY 6 MONTHS 07/24/2020 01/23/2020, 11/07/2019, 08/09/2019, Additional history exists DIABETES-FOOT EXAM 11/07/2020 11/07/2019, 0 01/01/2019, 12/29/2017, Additional history exists Yearly B-12 01/22/2021 01/23/2020, 02/24, 05/16/2018 PAP SMEAR-EVERY 3 YRS,AGES 21-65 10/03/2022 10/03/2019, 05/11/2013, 03/01/2008, Additional history exists MENINGOCOCCAL (MENACTRA/MENVEO) Aged Out No longer eligible based on patient's age to complete this topic documented as of this encounter Implants Not on filedocumented as of this encounter Visit Diagnoses Diagnosis Chronic diastolic congestive heart failure (HCC)- Primary Chronic diastolic heart failure documented in this encounter Advance Directives Documents on File Type Date Recorded Patient Ob/Gyn Nurse Expl 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
--- OUTSIDE RECORDS SUMMARY | 2023-06-01 05:23 | External Medical Summary | Summary of Care ---
Author Name Unknown Organization [facility] Address [place] [address] Care Team Providers Care Physical Therapist Technician Name Role Phone Kevin Whiteside DO Primary Care Provider Reason for Visit * Reason Comments [facility]: Maintenance Encounter Details Date Type Department Care Team Description 04/09/2020 Scheduled Telephone [facility], [facility] [address] [place] [address] Coordinator, [facility] [address] [place] [address] [phone] Allergies Active Allergy Reactions Severity Noted Date Comments Pollen 05/18/2019 Heparin 09/04/2009 Heparin Induced Thrombocytopenia Empagliflozin Other (Please comment) Medium 05/17/2018 3 yeast infections in 6 weeks after starting Morphine And Related 09/16/1997 Hallucinations Tetanus Toxoid Other (Please comment) 06/15/2011 Passed out documented as of this encounter (statuses as of 04/09/2020) Medications Medication Sig Dispensed Refills Start Date [...] 3 08/30/2018 Active Blood Glucose Monitoring Suppl (NimbuzzTOUCH ULTRA 2) w/Device KIT Use to test [...] type 2 nursing care encounter ([facility]),Uncontrolled type 2 diabetes mellitus with stage 3 chronic kidney disease, with long-term current use of insulin ([facility]) Inject 1.5 mg under the skin once a week. 15 mL 3 12/18/2019 Active Nortriptyline HCl (PAMELOR) 50 MG CapsuleIndications:F ibromyalgia Take 1 Cap by mouth at bedtime. 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 1 Each 0 04/08/2020 Active documented as of this encounter (statuses as of 04/09/2020) Active Problems Problem Noted Date Uncontrolled type [...] as of this encounter (statuses as of 04/09/2020) Resolved Problems Problem Noted Date Resolved Date [...] as of this encounter (statuses as of 04/09/2020) Immunizations Name Administration Dates Next Due Pneumococcal [...] Telephone Encounter - Lisandra Thomas LPN - 04/09/2020 12:08 PM EDT Spoke with Stephanie. She states she is feeling about the same. Her right leg is a little less edematous, left foot is also mildly improved, she can get her shoe on today. She denies any increased shortness of breath or abdominal bloating. She had boneless/skinless chicken, mixed vegetables and potatoes. She is trying to adhere to fluid restriction of 64 ounces per day. Overall she feels she has a little more energy today than yesterday. She states her edema is improving but not resolved. She doubled Lasix yesterday and today. She is voiding more frequently. She also took additional KCL yesterday and today. She is able to lay down to sleep, using CPAP with oxygen at . Routed to [facility] and care team. documented in this encounter Plan of Treatment Upcoming Encounters Date Type Specialty Care Team Description 04/18/2020 Home Visit [facility] Brooke Jose, RN [address] [place] [address] [phone] 05/08/2020 Office Visit Family Medicine Kevin Whiteside DO [address] [place] [address] [phone] 05/28/2020 Office Visit Cardiology Marjorie Powell PA-C [address] [place] [address] 06/03/2020 Office Visit Dermatology Apple Kaminski MD [address] [place] [address] [phone] 06/25/[address] [facility] [place] [address] [place] [address] 07/10/2020 Office Visit [facility]oped[facility] [address] 07/11/2020 Imaging Radiology 11/27/2020 Office Visit Pulmonary Celsa Tafoya CRNP [address] [place] [address] Health Maintenance Due Date Last Done [...] File Type Date Recorded Patient Director Of Search Engine Marketing Expl 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
--- OUTSIDE RECORDS SUMMARY | 2023-06-01 05:23 | External Medical Summary | Summary of Care ---
Author Name Unknown Organization [place] [address] Care Team Providers Care Box Toe Cutter Name Role Phone Migue Whiteside DO Primary Care Provider Reason for Visit * Reason Comments eRx-Medication Refill Encounter Details Date Type Department Care Team Description 04/14/2020 Refill Family Practice [facility] [address] [place] [address] Migue Whiteside DO [address] [facility] [place] [address] [phone] Anxiety state Allergies Active Allergy Reactions Severity Noted Date Comments Pollen 05/18/2019 Heparin 09/04/2009 Heparin Induced Thrombocytopenia Empagliflozin Other (Please comment) Medium 05/17/2018 3 yeast infections in 6 weeks after starting Morphine And Related 09/16/1997 Hallucinations Tetanus Toxoid Other (Please comment) 06/15/2011 Passed out documented as of this encounter (statuses as of 04/16/2020) Medications Medication Sig Dispensed Refills Start Date [...] 3 8 Active Blood Glucose Monitoring Suppl ([employer] ULTRA 2) w/Device KIT Use to test [...] current use of insulin ([facility]) Inject 1.5 mg under the skin once [...] at bedtime. 90 Tab 3 0 Active dicyclomine (BENTYL) 20 MG Tablet 0 0 Active metoprolol tartrate (LOPRESSOR) 25 MG [...] MOUTH TWICE DAILY 60 Tab 0 0 04/16/20 20 Discontinued documented as of this encounter (statuses as of 04/16/2020) Active Problems Problem Noted Date Uncontrolled type [...] as of this encounter (statuses as of 04/16/2020) Resolved Problems Problem Noted Date Resolved Date [...] as of this encounter (statuses as of 04/16/2020) Immunizations Name Administration Dates Next Due Pneumococcal [...] Telephone Encounter - Migue Whiteside DO - 04/16/2020 9:17 AM EDT Signed Prescriptions: Disp Refills clonazePAM (KLONOPIN) 0.5 MG Tablet 60 Tab 0 Sig: TAKE ONE TABLET BY MOUTH TWICE DAILY Authorizing Provider: MIGUE WHITESIDE * Telephone Encounter - Luz Jurado [facility] - 04/16/2020 8:05 AM EDT Pending Prescriptions: Disp Refills clonazePAM (KLONOPIN) 0.5 MG Tablet [Phar*60 Tab 0 Sig: TAKE ONE TABLET BY MOUTH TWICE DAILY * Telephone Encounter - Luz Jurado RP - 04/16/2020 7:58 AM EDT I have reviewed the patients controlled substance dispensing history in the Prescription Drug Monitoring Program in compliance with the [facility] regulations before prescribing a controlled substance. PDMP checked on 04/16/2020. Patient requesting: Clonazepam 0.5 MG Tablet , filled 03/04/20, for #60 for a 30 day supply. Other recent controlled medication fills: Tramadol Hcl 50 MG Tablet , filled 03/13/20, for #90 for a 30 day supply. None Last Office/Telemedicine Visit: 03/13/2020 Next Office Visit: 05/08/2020 Scheduled Provider(s): Migue Whiteside, DO Date medication is due for refill: 04/01/20 Pharmacy: [id number] Is this request for a controlled substance?Yes and Urine Drug Screen completed Toxicology results: Results for orders placed [...] in Results Review. Please approve if appropriate. Luz Jurado PharmD Clinical Pharmacist Telepharmacy 04/16/2020,7:58 AM documented in this encounter Plan of Treatment Upcoming Encounters Date Type Specialty Care Team Description 04/18/2020 Home Visit [facility] Brooke Jose RN [address] [place] [id number] 05/08/2020 Office Visit Family Medicine Migue Whiteside, DO [address] [place] [address] [phone] 05/28/2020 Office Visit Cardiology Marjorie Powell PA-C [address] [place] [address] [phone] 06/03/2020 Office Visit Dermatology Apple Kaminski MD [address] [place] [address], [place] [address] [phone] 06/25/2020 Office Visit Pharmacy [facility] [place] [address] [place] [id number] 07/10/2020 Office Visit Orthopedics Zack Teague, [address] [place] [id number] 07/11/2020 Imaging Radiology 11/27/2020 Office Visit Pulmonary Celsa Tafoya CRNP [address] [place] [address] [phone] Health Maintenance Due Date Last Done Comments Zoster Vaccines (3 of 3) 01/02/2020 11/07/2019, 11/24 *TSH FOR THYROID MEDICATION MONITORING YEARLY 03/16/2020 DIABETES-EYE EXAM 04/05/2020 04/05/2019, (Done elsewhere), 12/18/2009, Additional history exists Pneumococcal Vaccine: 65+ Years (1 of 2 [...] on File Type Date Recorded Patient Cement Paver Expl 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
--- OUTSIDE RECORDS SUMMARY | 2023-06-01 05:23 | External Medical Summary | Summary of Care ---
Author Name Unknown Organization [facility] Address [place] [address] Care Team Providers Care Cap And Stud Machine Operator Name Role Phone Kevin Whiteside DO Primary Care Provider Reason for Visit * Reason Comments [facility]: Maintenance Encounter Details Date Type Department Care Team Description 04/09/2020 Scheduled Telephone [facility], [facility] [address] [place] [address] Coordinator, [facility] [address] [place] [address] [phone] Allergies Active Allergy Reactions Severity Noted Date [...] 3 08/30/2018 Active Blood Glucose Monitoring Suppl ([employer] RacingTOUCH ULTRA 2) w/Device KIT Use to test [...] type 2 nursing care encounter ([facility]),Uncontrolled type 2 diabetes mellitus with stage 3 chronic kidney disease, with long-term current use of insulin ([facility]) Inject 1.5 mg under the [...] 30 mL 5 04/02/2020 Active DIURETIC TITRATION PLANIndications: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 Routed to [facility] and care team. documented in this encounter Plan of Treatment Upcoming Encounters Date Type Specialty Care Team Description 04/18/2020 Home Visit [facility] Brooke Jose, RN [address] [facility] [place] [address] [phone] 05/08/2020 Office Visit Family Medicine Kevin Whiteside, DO [address] [facility] [place] [address] [phone] 05/28/2020 Office Visit Cardiology Marjorie Powell PA-C [address] [facility] [place] [address] [phone] 06/03/2020 Office Visit Dermatology Apple Kaminski MD [address] [place] [address], [place] [address] [phone] 06/25/2020 Office Visit Pharmacy [facility] [place] [address] [facility] [place] [address] 07/10/2020 Office Visit Orthopedics Zack Teague, [address] [facility] [place] [address] [phone] 07/11/2020 Imaging Radiology 11/27/2020 Office Visit Pulmonary Celsa Tafoya CRNP [address] [facility] [place] [address] [phone] Health Maintenance Due Date Last Done Comments [...] Documents on File Type Date Recorded Patient Unarmed Security Guard Expl 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
--- OUTSIDE RECORDS SUMMARY | 2023-06-01 05:23 | External Medical Summary | Summary of Care ---
Author Name Unknown Organization [place] [address] Care Team Providers Care Combo Welder Name Role Phone Stevo Kevin Ocampomelinda Primary Care Provider Reason for Visit * Reason Comments [facility]: Maintenance Encounter Details Date Type Department Care Team Description 03/24/2020 Home Visit Care Coordination [address] [place] [address] Magaly Morales, Community Health Sign Erector [address] [place], [place] [id number] Benign hypertensive heart and kidney disease with [...] as of this encounter (statuses as of 03/25/2020) Medications Medication Sig Dispensed Refills Start Date [...] 3 08/30/2018 Active Blood Glucose Monitoring Suppl (Boracci ULTRA 2) w/Device KIT Use to test [...] use of insulin ([facility]) Inject 1.5 mg under the skin once a week. 15 mL 3 12/18/2019 Active Nortriptyline HCl (PAMELOR) 50 MG CapsuleIndications:F ibromyalgia Take 1 Cap by mouth at bedtime. 90 Cap 3 12/18/2019 Active gabapentin (NEURONTIN) 300 MG CapsuleIndications:T ype 2 diabetes mellitus with hemoglobin A1c goal of 7.0%-8.0% ([facility]) Take 1 Cap by mouth 3 [...] Pain, Severe. 90 Tab 0 03/13/2020 Active documented as of this encounter (statuses as of 03/25/2020) Active Problems Problem Noted Date Uncontrolled type [...] 10/14/2014 Overview: ICD-10 update of inactive term [place] filter in place 08/19/2014 History of pulmonary [...] as of this encounter (statuses as of 03/25/2020) Resolved Problems Problem Noted Date Resolved Date [...] as of this encounter (statuses as of 03/25/2020) Immunizations Name Administration Dates Next Due Pneumococcal [...] Sign Reading Time Taken Comments Blood Pressure 120/62 03/24/2020 3:12 PM EDT Pulse 90 03/24/2020 3:12 PM EDT Temperature 36.8 C (98.3 F) 03/24/2020 3:12 PM ED T Respiratory Rate 18 03/24/2020 3:12 PM EDT Oxygen Saturation 90% 03/24/2020 3:12 PM EDT Inhaled Oxygen Concentration - - Weight - - Height - - Body Mass Index - - documented in this encounter Progress Notes * Magaly Morales, Community Health Sign Erector - 03/24/2020 3:01 PM EDT [facility] Community [facility] Sign Erector Visit Date: 03/24/2020 Time: 3:01 PM Name: Stephanie Camp : 1955 Source of Information: Patient Condition Changes: Are there any changes in medical condition since last visit? No Medications: Are there any changes in medication management since last visit? Yes DICYCLOMINE PRN In need of Oxygen supply's Health Concerns: Does the patient have any health concerns since last visit? No BP 120/62 | Pulse 90 | Temp 98.3 | Resp 18 | SaO2 90% | LMP 03/11/2003 Pt reported she is doing well with no concerns Reported NO SOB , NO falls Pt is wearing her Oxygen at night Pt stated she has not hade new Oxygen tubing for a long time due to an outstanding balance with [facility] Tubing is taped together Plan: Notified Provider/Stroboscope Operatorchange room attendant in condition Contact [facility] to further assist pt with giving insurance information This LES contacted [facility].Updated insurance was given. Patients bill is being sent to there billing team to try resubmitting due this being from 08/2018 if unable to resubmit [facility] will contact patient directly to set up payment plan. This will allow the patient to order the supply's she is in need of Follow Up: Patient encouraged to call the intake phone number for all urgent but not emergent issues. Scheduled to follow up with patient as needed Appointment with CM in March [facility] 03/24/2020 3:01 PM documented in this encounter Plan of Treatment Upcoming Encounters Date Type Specialty Care Team Description 04/15/2020 [facility] Visit [facility] Brooke Jose, RN [address] [place] [address] [phone] 05/08/2020 Office Visit Family Medicine Kevin Whiteside, [address] [place] [address] [phone] 05/28/2020 Office Visit Cardiology Marjorie Powell PA-C [address] [place] [address] [phone] 06/03/2020 Office Visit Dermatology Apple Kaminski MD [address] [place] [address], [place] [address] [phone] 06/25/[address] [facility] [place] [address] [place] [address] 07/10/2020 Office Visit Orthopedics Zack Teague, DO [address] [place] [address] [phone] 07/11/2020 Imaging Radiology 11/27/2020 Office Visit Pulmonary Celsa Tafoya CRNP [address] [place] [address] [phone] Health Maintenance Due Date Last Done Comments Pneumococcal Vaccine: Pediatrics (0 to 5 Years) and At-Risk Patients (6 to 64 Years) (3 of 3 - PCV13) 08/22/2010 08/22/2009, 06/15/2006 Zoster Vaccines (3 of 3) 01/02/2020 11/07/2019, 11/24 *TSH FOR THYROID MEDICATION MONITORING YEARLY 03/16/2020 DIABETES-EYE EXAM 04/05/2020 04/05/2019, (Done elsewhere), 12/18/2009, Additional history exists BREAST CANCER SCREENING DISCUSSION YEARLY AGES 40-75 07/10/2020 07/10/2019, 06/23/2018, 05/09/2015, Additional history exists DIABETES-HGBA1C EVERY 6 MONTHS 07/24/2020 01/23/2020, 11/07/2019, 08/09/2019, Additional history exists DIABETES-FOOT EXAM 11/07/2020 11/07/2019, 0 01/01/2019, 12/29/2017, Additional history exists Yearly B-12 01/22/2021 01/23/2020, 02/24, 05/16/2018 PAP SMEAR-EVERY 3 YRS,AGES 21-65 10/03/2022 10/03/2019, 05/11/2013, 03/01/2008, Additional history exists Influenza Vaccine (FLU shot) Completed , 06/12/2018, 06/12/2018, Additional history exists MENINGOCOCCAL (MENACTRA/MENVEO) Aged [...] Documents on File Type Date Recorded Patient Injection Molding Machine Offbearer Expl 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
--- OUTSIDE RECORDS SUMMARY | 2023-06-01 05:23 | External Medical Summary | Summary of Care ---
Author Name Unknown Organization [place] [address] Care Team Providers Care Care Specialist Name Role Phone Whiteside Kevin Ocampomelinda Primary Care Provider Encounter Details Date Type Department Care Team Description 04/18/2020 Home Visit Care Coordination [address] [place], [place] [id number] Mira Duong, Community Health Proof Clerk [address] [place] [address] Allergies Active Allergy Reactions Severity Noted Date Comments Pollen 05/18/2019 Heparin 09/04/2009 Heparin Induced Thrombocytopenia Empagliflozin Other (Please comment) Medium 05/17/2018 3 yeast infections in 6 weeks after starting Morphine And Related 09/16/1997 Hallucinations Tetanus Toxoid Other (Please comment) 06/15/2011 Passed out documented as of this encounter (statuses as of 04/18/2020) Medications Medication Sig Dispensed Refills Start Date [...] of insulin ([facility]) Inject 1.5 mg under the skin once a week. 15 mL 3 12/18/2019 Active Nortriptyline HCl (PAMELOR) 50 MG CapsuleIndications:F ibromyalgia Take 1 Cap by mouth at bedtime. 90 Cap 3 12/18/2019 Active gabapentin (NEURONTIN) 300 MG CapsuleIndications:T ype 2 diabetes mellitus with hemoglobin A1c goal of 7.0%-8.0% ([facility]) Take 1 Cap by mouth 3 [...] 90 Tab 3 12/18/2019 Active Glucose Blood (EATONTOUCH ULTRA BLUE) STRP Check sugars 3-4 times [...] 30 mL 5 04/02/2020 Active DIURETIC TITRATION PLANIndications:Sander Operator zahra diastolic congestive heart failure (HCC) If no improvement on day 3, contact heart failure managing provider. 1 Each 0 04/08/2020 Active clonazePAM (KLONOPIN) 0.5 MG TabletIndications:An xiety state TAKE ONE TABLET BY MOUTH TWICE DAILY 60 Tab 0 04/16/2020 Active documented as of this encounter (statuses as of 04/18/2020) Active Problems Problem Noted Date Uncontrolled type [...] as of this encounter (statuses as of 04/18/2020) Resolved Problems Problem Noted Date Resolved Date [...] as of this encounter (statuses as of 04/18/2020) Immunizations Name Administration Dates Next Due Pneumococcal [...] Sign Reading Time Taken Comments Blood Pressure 120/60 04/18/2020 11:27 AM EDT Pulse 74 04/18/2020 11:27 AM EDT Temperature 36.4 C (97.5 F) 04/18/2020 11:27 AM E DT Respiratory Rate - - Oxygen Saturation 89% 04/18/2020 11:27 AM EDT Inhaled Oxygen Concentration - - Weight - - Height - - Body Mass Index - - documented in this encounter Progress Notes * Mira Duong, Community Health Proof Clerk - 04/18/2020 11:38 AM EDT Community Health Proof Clerk Visit Date: 04/18/2020 Time: 11:38 AM Name: Stephanie Camp : 1955 Source of Information: Patient Vitals: Vital signs completed: Yes, vital signs within normal range. BP 120/60 | Pulse 74 | Temp 97.5 | SaO2 89% | LMP 03/11/2003 Condition Changes: Changes in health or social status since last visit: Now have red, raised bumps on legs and upper hand for the past week. She is using Mupirocin ointment 2% but its not helping. The patient has new concerns since last visit: Yes, bumps on legs and hands Progress towards goals since last visit: She has brought her A1C down. Medications: Medication review completed? No, none requested. Does the patient have barriers to medication adherence? No. Telehealth: This is a telehealth visit: No. Symptoms Surveys and Evaluations: MAHC10 completed this visit: No Last flowsheet values for [facility]: Age 65+: 0 (03/24/2020 3:00 PM) Diagnosis [...] at risk for fallin (03/24/2020 3:00 PM) COPD Checklist COPD LES (Community Health Proof Clerk) Checklist The patient uses oxygen: Yes Tanks are stored: Not applicable Compressor located away from anything flammable: yes Oxygen tubing: - Clean and in good repair: Yes - Reached out to Durable Medical Equipment supplier for replacement tubing: Yes - Referred to Refund Clerk for additional in-home respiratory assessment: No, not needed - Other: Describe how the patient manages going out with oxygen: Just uses in the home - Referred to Refund Clerk for portable oxygen order: No - Coordinated portable oxygen tanks with Durable Medical Equipment supplier: No The patient uses a nebulizer: No The patient uses an inhaler: No COPD Assessment Test (CAT) completed this visit: No Last flowsheet values for COPD Assessment Test (CAT): Home Safety The patient has concerns related to housing: No Exterior of the home: The steps are even and in good repair: Yes Snow/ice removal assistance available: Yes Interior of the home: If durable medical equipment is used, halls and doorways easy to navigate: Yes, There are trip hazards in the home: No There are signs of rodent/insect infestation: No There are working smoke detectors: Yes The house is heated by electricity Bathroom: Grab bars are needed: No The patient reports needing help getting on and off the toilet: No Bedroom: There is a medical alert or phone near the bed: Yes, The walkway between the bedroom and bathroom is well lit: Yes, Plan: Notified Provider/Refund Clerkpack changer in condition Patient has itchy, red bumps on lower legs and back of hands. LES will notify RN. She has not contacted the able bodied tankerman yet. Follow Up: Patient encouraged to call the intake phone number for all urgent but not emergent issues. Scheduled to follow up with patient with RN 04-24-20. Mira Duong [facility] Health Proof Clerk 04/18/2020 11:38 AM documented in this encounter Plan of Treatment Upcoming Encounters Date Type Specialty Care Team Description 04/24/2020 Home Visit [facility] Brooke Jose RN [address] [place] [address] [phone] 05/08/2020 Office Visit Family Medicine Kevin Whiteside, DO [address] [address] [phone] 05/28/2020 Office Visit Cardiology Marjorie Powell PA-C [address] [address] [phone] 06/03/2020 Office Visit Dermatology Apple Kaminski MD [address] [place] [address], [place] [address] [phone] 06/25/2020 Office Visit Pharmacy [facility] [place] [address] [place] [address] 07/10/2020 Office Visit Orthopedics Zack Teague, [address] [place] [address] [phone] 07/11/2020 Imaging Radiology 11/27/2020 Office Visit Pulmonary Celsa Tafoya CRNP [address] [place] [address] [phone] Health Maintenance Due Date Last Done Comments [...] Documents on File Type Date Recorded Patient Games Manager Expl 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
--- OUTSIDE RECORDS SUMMARY | 2023-06-01 05:23 | External Medical Summary | Summary of Care ---
Author Name Unknown Organization [place] [address] Care Team Providers Care Planning Intern Name Role Phone Stevo Kevin Ocampomelinda Primary Care Provider Reason for Visit * Reason Comments [facility]: Maintenance Encounter Details Date Type Department Care Team Description 04/18/2020 Home Visit Care Coordination [address] [place] [address] Mira Duong, Community Health Ear Flap Binder [address] [place], [place] [id number] Benign hypertensive heart and kidney disease with [...] 3 08/30/2018 Active Blood Glucose Monitoring Suppl (Promobucket ULTRA 2) w/Device KIT Use to test [...] 30 mL 5 04/02/2020 Active DIURETIC TITRATION PLANIndications:Fruit Stuffer zahra diastolic congestive heart failure (HCC) If [...] 10/14/2014 Overview: ICD-10 update of inactive term [place] filter in place 08/19/2014 History of pulmonary [...] have Coronavirus / COVID-19? No / Unsure 04/18/2020 12:13 PM EDT documented as of this encounter [...] Progress Notes * Mira Duong, Community Health Ear Flap Binder - 04/18/2020 11:38 AM EDT Community [facility] Ear Flap Binder Visit Date: 04/18/2020 Time: 11:38 AM Name: [...] this visit: No Last flowsheet values for [facility]: Age 65+: 0 (03/24/2020 3:00 PM) Diagnosis [...] PM) COPD Checklist COPD LES (Community [facility] Ear Flap Binder) Checklist The patient uses oxygen: Yes Tanks are stored: Not applicable Compressor located away from anything flammable: yes Oxygen tubing: - Clean and in good repair: Yes - Reached out to Durable Medical Equipment supplier for replacement tubing: no - Referred to Dental Front Office Assistant for additional in-home respiratory assessment: No, not needed - Other: Describe how the patient manages going out with oxygen: Just uses in the home - Referred to Dental Front Office Assistant for portable oxygen order: No - Coordinated [...] bathroom is well lit: Yes, Plan: Notified Provider/Dental Front Office Assistantmeter changes records clerk in condition Patient has itchy, red bumps on lower legs and back of hands. LES will notify RN. She has not contacted the human capital consultant yet. Follow Up: Patient encouraged to call the intake phone number for all urgent but not emergent issues. Pt has problem with [facility] bill from a few years ago and has outstanding bill of over $800. She can'tget any tubing for her p-c-pap or oxygen. LES will talke to RN about changing DME company for the pt. Scheduled to follow up with patient with RN 04-24-20. Mira Duong [facility] Ear Flap Binder 04/18/2020 11:38 AM Electronically signed by Mira Duong [facility] Ear Flap Binder at 04/18/2020 12:16 PM EDT documented in this encounter Plan of Treatment Upcoming Encounters Date Type Specialty Care Team Description 04/24/2020 Home Visit [facility] Brooke Jose RN [address] [place] [address] [phone] 05/08/2020 Office Visit Family Medicine Kevin Whiteside, [address] [place] [address] [phone] 05/28/2020 Office Visit Cardiology Marjorie Powell PA-C [address] [place] [address] [phone] 06/03/2020 Office Visit Dermatology Apple Kaminski MD [address] [place] [address], [place] [address] [phone] 06/25/2020 Office Visit Pharmacy [facility] [place] [address] [place] [address] 07/10/2020 Office Visit Orthopedics Zack Teague, [address] [place] [address] [phone] 07/11/2020 Imaging Radiology 11/27/2020 Office Visit Pulmonary Celsa Tafoya CRNP [address] [facility] [place] [address] [phone] Health Maintenance Due Date Last Done Comments [...] Documents on File Type Date Recorded Patient Bioinformatics Programmer Expl 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
--- OUTSIDE RECORDS SUMMARY | 2023-06-01 05:23 | External Medical Summary | Summary of Care ---
Author Name Unknown Organization [place] [address] Care Team Providers Care Analytics Manager Name Role Phone Kevin Whiteside DO Primary Care Provider Encounter Details Date Type Department Care Team Description 04/17/2020 Orders Only Family [facility] [address] [place] [address] Kevin Whiteside DO [address] [facility] [place] [address] Allergies Active Allergy Reactions Severity Noted Date Comments Pollen 05/18/2019 Heparin 09/04/2009 Heparin Induced Thrombocytopenia Empagliflozin Other (Please comment) Medium 05/17/2018 3 yeast infections in 6 weeks after starting Morphine And Related 09/16/1997 Hallucinations Tetanus Toxoid Other (Please comment) 06/15/2011 Passed out documented as of this encounter (statuses as of 04/17/2020) Medications Medication Sig Dispensed Refills Start Date [...] use of insulin ([facility]) Inject 1.5 mg under the skin once a week. 15 mL 3 12/18/2019 Active Nortriptyline HCl (PAMELOR) 50 MG CapsuleIndications:F ibromyalgia Take 1 Cap by mouth at bedtime. 90 Cap 3 12/18/2019 Active gabapentin (NEURONTIN) 300 MG CapsuleIndications:T ype 2 diabetes mellitus with hemoglobin A1c goal of 7.0%-8.0% ([facility]) Take 1 Cap by mouth 3 times a day. 270 Cap 3 12/18/2019 Active insulin aspart (INSULIN ASPART) 100 UNIT/ML injection USE IN INSULIN PUMP UP TO 200 UNITS PER DAY 90 mL 12/18/2019 Active levothyroxine (LEVOXYL) 200 MCG TabletIndications:Po [...] 30 mL 5 04/02/2020 Active DIURETIC TITRATION PLANIndications:Masking Machine Operator zahra diastolic congestive heart failure (HCC) If no improvement on day 3, contact heart failure managing provider. 1 Each 0 04/08/2020 Active clonazePAM (KLONOPIN) 0.5 MG TabletIndications:An xiety state TAKE ONE TABLET BY MOUTH TWICE DAILY 60 Tab 0 04/16/2020 Active documented as of this encounter (statuses as of 04/17/2020) Active Problems Problem Noted Date Uncontrolled type [...] 10/14/2014 Overview: ICD-10 update of inactive term [place] filter in place 08/19/2014 History of pulmonary [...] as of this encounter (statuses as of 04/17/2020) Resolved Problems Problem Noted Date Resolved Date [...] as of this encounter (statuses as of 04/17/2020) Immunizations Name Administration Dates Next Due Pneumococcal [...] PM EDT documented as of this encounter Plan of Treatment Upcoming Encounters Date Type Specialty Care Team Description 04/18/2020 Home Visit [facility] Brooke Jose RN [address] [facility] [place] [address] [phone] 05/08/2020 Office [facility] [place] [address] [phone] 05/28/2020 Office Visit Cardiology Marjorie Powell PA-C [address] [facility] [place] [address] [phone] 06/03/2020 Office Visit Dermatology Apple Kaminski MD [address] [place] [address] [phone] 06/25/2020 Office Visit [facility] [facility] [place] [address] 07/10/2020 Office Visit Orthopedics [facility]ack Teague[facility] [place] [address] [phone] 07/11/2020 Imaging Radiology 11/27/2020 Office Visit Pulmonary Celsa Tafoya CRNP [address] [facility] [place] [id number] Health Maintenance Due Date Last Done Comments [...] Associated Diagnosis Comments DIABETIC EYE EXAM Routine 04/07/2020 documented in this encounter Results * DIABETIC EYE EXAM (04/07/2020) Specimen Narrative Performed At Performing Organization Address City/State/Zipcod e Phone Number OUTSIDE LAB (SEE SCANNED REPORT) documented in this encounter Advance Directives Documents on File Type Date Recorded Patient Experience Designer Expl 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
--- OUTSIDE RECORDS SUMMARY | 2023-06-01 05:23 | External Medical Summary | Summary of Care ---
Author Name Unknown Organization [facility] [place] [address] Care Team Providers Care Lan Administrator Name Role Phone Kevin Whiteside DO Primary Care Provider Reason for Visit * Reason Comments [facility]: Maintenance Encounter Details Date Type Department Care Team Description 04/10/2020 Scheduled Telephone [facility], [facility] [address] [place] [address] Coordinator, [facility] [address] [place] [address] [phone] Allergies Active Allergy Reactions Severity Noted Date Comments Pollen 05/18/2019 Heparin 09/04/2009 Heparin Induced Thrombocytopenia Empagliflozin Other (Please comment) Medium 05/17/2018 3 yeast infections in 6 weeks after starting Morphine And Related 09/16/1997 Hallucinations Tetanus Toxoid Other (Please comment) 06/15/2011 Passed out documented as of this encounter (statuses as of 04/10/2020) Medications Medication Sig Dispensed Refills Start Date [...] 3 08/30/2018 Active Blood Glucose Monitoring Suppl (MATRIXX SoftwareTOUCH ULTRA 2) w/Device KIT Use to test [...] type 2 nursing care encounter ([facility]),Uncontrolled type 2 diabetes mellitus with stage 3 chronic kidney disease, with long-term current use of insulin ([facility]) Inject 1.5 mg under the [...] 30 mL 5 04/02/2020 Active DIURETIC TITRATION PLANIndications:Non Acoustic Operator zahra diastolic congestive heart failure (HCC) If no improvement on day 3, contact heart failure managing provider. 1 Each 0 04/08/2020 Active documented as of this encounter (statuses as of 04/10/2020) Active Problems Problem Noted Date Uncontrolled type [...] as of this encounter (statuses as of 04/10/2020) Resolved Problems Problem Noted Date Resolved Date [...] as of this encounter (statuses as of 04/10/2020) Immunizations Name Administration Dates Next Due Pneumococcal [...] Telephone Encounter - Lisandra Thomas LPN - 04/10/2020 1:28 PM EDT Left message for patient to return my call. Provided call back number documented in this encounter Plan of Treatment Upcoming Encounters Date Type Specialty Care Team Description 04/18/2020 Home Visit [facility] Brooke Jose RN [address] [place] [address] [phone] 05/08/2020 Office Visit Family Medicine Kevin Whiteside DO [address] [place] [address] [phone] 05/28/2020 Office Visit Cardiology Marjorie Powell PA-C [address] [place] [address] [phone] 06/03/2020 Office Visit Dermatology Apple Kaminski MD [address] [place] [address], [place] [address] [phone] 06/25/2020 Office Visit Pharmacy [facility] [address] [place] [address] 07/10/2020 Office Visit Orthopedics Zack Teague DO [address] [place] [address] [phone] 07/11/2020 Imaging Radiology 11/27/2020 Office Visit Pulmonary Celsa Tafoya CRNP [address] [place] [address] [phone] Health Maintenance Due Date Last Done Comments [...] Documents on File Type Date Recorded Patient Hourly Shift Expl 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
--- OUTSIDE RECORDS SUMMARY | 2023-06-01 05:23 | External Medical Summary | Summary of Care ---
Author Name Unknown Organization [place] [address] Care Team Providers Care Mica Plate Layer Name Role Phone Stevo Kevin Ocampomelinda Primary Care Provider Reason for Visit * Reason Comments Transportation Encounter Details Date Type Department Care Team Description 03/25/2020 Telephone Care Coordination [address], [place] [id number] Magaly Morales, [facility] Tractor Mechanic Apprentice [address] [place], [place] [id number] Transportation Allergies Active Allergy Reactions Severity Noted Date Comments Pollen 05/18/2019 Heparin 09/04/2009 Heparin Induced Thrombocytopenia Empagliflozin Other (Please comment) Medium 05/17/2018 3 yeast infections in 6 weeks after starting Morphine And Related 09/16/1997 Hallucinations Tetanus Toxoid Other (Please comment) 06/15/2011 Passed out documented as of this encounter (statuses as of 04/11/2020) Medications Medication Sig Dispensed Refills Start Date [...] current use of insulin ([facility]) Inject 1.5 mg under the skin once a week. 15 mL 3 12/18/2019 Active Nortriptyline HCl (PAMELOR) 50 MG CapsuleIndications:F ibromyalgia Take 1 Cap by mouth at bedtime. 90 Cap 3 12/18/2019 Active gabapentin (NEURONTIN) 300 MG CapsuleIndications:T ype 2 diabetes mellitus with hemoglobin A1c goal of 7.0%-8.0% ([facility]) Take 1 Cap by mouth 3 times [...] as of this encounter (statuses as of 04/11/2020) Active Problems Problem Noted Date Uncontrolled type [...] 76%, time <89% 6:21 hours, [facility] Postsurgical hypothyroidism 06/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 documented as of this encounter (statuses as of 04/11/2020) Resolved Problems Problem Noted Date Resolved Date [...] as of this encounter (statuses as of 04/11/2020) Immunizations Name Administration Dates Next Due Pneumococcal [...] Specialty Care Team Description 04/18/2020 Home Visit [facility] Brooke Jose, RN [address] [place] [address] [phone] 05/08/2020 Office Visit Family Medicine Kevin Whiteside, [address] [place] [address] [phone] 05/28/2020 Office Visit Cardiology Marjorie Powell PA-C [address] [place] [address] [phone] 06/03/2020 Office Visit Dermatology Apple Kaminski MD [address] [place] [address], [place] [address] [phone] 06/25/2020 Office Visit Pharmacy [facility] [address] [place] [address] 07/10/2020 Office Visit Orthopedics Zack Teague, [address] [place] [address] [phone] 07/11/2020 Imaging Radiology 11/27/2020 Office Visit Pulmonary Celsa Tafoya CRNP [address] [place] [address] [phone] Health Maintenance Due Date Last Done Comments [...] Documents on File Type Date Recorded Patient Skiver Box Toe Expl 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
--- OUTSIDE RECORDS SUMMARY | 2023-06-01 05:23 | External Medical Summary | Summary of Care ---
Author Name Unknown Organization [place] [address] Care Team Providers Care Garbage Depot Worker Name Role Phone Kevin Whiteside DO Primary Care Provider Encounter Details Date Type Department Care Team Description 04/03/2020 Orders Only Family [facility] [address] [facility] [address] Kevin Whiteside DO [address] [facility] [place] [address] Allergies Active Allergy Reactions Severity Noted Date Comments Pollen 05/18/2019 Heparin 09/04/2009 Heparin Induced Thrombocytopenia Empagliflozin Other (Please comment) Medium 05/17/2018 3 yeast infections in 6 weeks after starting Morphine And Related 09/16/1997 Hallucinations Tetanus Toxoid Other (Please comment) 06/15/2011 Passed out documented as of this encounter (statuses as of 04/03/2020) Medications Medication Sig Dispensed Refills Start Date [...] nursing care encounter ([facility]),Uncontrolled type 2 diabetes mellitus with stage 3 chronic kidney disease, with long-term current use of insulin ([facility]) Inject 1.5 mg under the skin once a week. 15 mL 3 12/18/2019 Active Nortriptyline HCl (PAMELOR) 50 MG CapsuleIndications:F ibromyalgia Take 1 Cap by mouth at bedtime. 90 Cap 3 12/18/2019 Active gabapentin (NEURONTIN) 300 MG CapsuleIndications:T ype 2 diabetes mellitus with hemoglobin A1c goal of 7.0%-8.0% ([facility]) Take 1 Cap by mouth [...] as directed 30 mL 5 04/02/2020 Active documented as of this encounter (statuses as of 04/03/2020) Active Problems Problem Noted Date Uncontrolled type [...] 10/14/2014 Overview: ICD-10 update of inactive term [place] filter in place 08/19/2014 History of pulmonary [...] as of this encounter (statuses as of 04/03/2020) Resolved Problems Problem Noted Date Resolved Date [...] as of this encounter (statuses as of 04/03/2020) Immunizations Name Administration Dates Next Due Pneumococcal [...] Home Brooke Jose, RN [address] [place] [address] [address] [phone] 05/08/2020 Office Visit Family Medicine Kevin Whiteside, [address] [place] [address] [phone] 05/28/2020 Office Visit Cardiology Marjorie Powell PA-C [address] [place] [address] [phone] 06/03/2020 Office Visit Dermatology Apple Kaminski MD [address] [place] [address], [place] [address] [phone] 06/25/2020 Office Visit Pharmacy [facility] [address] [place] [address] 07/10/2020 Office Visit Orthopedics Zack Teague, [address] [place] [address] [phone] 07/11/2020 Imaging Radiology 11/27/2020 Office Visit Pulmonary Celsa Tafoya CRNP [address] [place] [address] [phone] Health Maintenance Due Date Last Done Comments [...] Priority Date/Time Associated Diagnosis Comments CHEMISTRY-OUTSIDE Routine 03/13/2020 documented in this encounter Results * CHEMISTRY-OUTSIDE (03/13/2020) CREATININE-OUTSIDE LAB 1.74(A) 0.6 - 1.2 MG/DL OUTSIDE LAB (SEE SCANNED REPORT) GFR ESTIMATED-OUTSIDE LAB 30.5 OUTSIDE LAB (SEE SCANNED REPORT) POTASSIUM-OUTSIDE LAB 3.7 3.5 - 5.1 MMOL/L OUTSIDE LAB (SEE SCANNED REPORT) GLUCOSE-OUTSIDE LAB 88 70 - 99 MG/DL OUTSIDE LAB (SEE [...] LAB OUTSIDE LAB (SEE SCANNED REPORT) HEMOGLOBIN, [id number] LAB OUTSIDE LAB (SEE SCANNED REPORT) PHOSPHORUS-OUTSIDE LAB OUTSIDE LAB (SEE SCANNED REPORT) PTH-OUTSIDE LAB OUTSIDE LAB (SEE SCANNED REPORT) MICROALBUMIN RATIO-OUTSIDE LAB OUTSIDE LAB (SEE SCANNED REPORT) PROTEIN, UA-OUTSIDE LAB OUTSIDE LAB (SEE SCANNED REPORT) HEMOGLOBIN-OUTSIDE LAB 13.7 12.0 - 16.0 G/DL OUTSIDE LAB (SEE SCANNED REPORT) CHEMISTRY COMMENT-OUTSIDE LAB Comment:SEE SCAN: ED LABS: CBCD, CMP, MG, LIPASE, ISTAT LACT WAQAS OUTSIDE LAB (SEE SCANNED REPORT) Specimen Narrative Performed At Performing Organization Address City/State/Zipcod e Phone Number OUTSIDE LAB (SEE SCANNED REPORT) documented in this encounter Advance Directives Documents on File Type Date Recorded Patient Wrong Address Clerk Expl 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
--- OUTSIDE RECORDS SUMMARY | 2023-06-01 05:24 | External Medical Summary | Summary of Care ---
Author Name Unknown Organization [place] [address] Care Team Providers Care Stroboroma Operator Name Role Phone Stevo Kevin Ocampomelinda Primary Care Provider Reason for Visit * Reason Comments [facility]: Maintenance 48 hr f/u Encounter Details Date Type Department Care Team Description 03/14/2020 Scheduled Telephone [facility] [address] [facility] [place] [address] Brooke Jose, RN [address] [facility] [address] [phone] Benign hypertensive heart and kidney disease with [...] as of this encounter (statuses as of 03/20/2020) Medications Medication Sig Dispensed Refills Start Date [...] 3 08/30/2018 Active Blood Glucose Monitoring Suppl ([employer] ULTRA 2) w/Device KIT Use to [...] use of insulin ([facility]) Inject 1.5 mg under the skin once a week. 15 mL 3 12/18/2019 Active Nortriptyline HCl (PAMELOR) 50 MG CapsuleIndications:F ibromyalgia Take 1 Cap by mouth at bedtime. 90 Cap 3 12/18/2019 Active gabapentin (NEURONTIN) 300 MG CapsuleIndications:T ype 2 diabetes mellitus with hemoglobin A1c goal of 7.0%-8.0% ([facility]) Take 1 Cap by mouth 3 [...] Pain, Severe. 90 Tab 0 03/13/2020 Active ciprofloxacin (CIPRO) 500 MG TabletIndications:Lo wer abdominal pain Take 1 Tab by mouth every 12 hours for 5 days. 10 Tab 0 03/12/2020 0 documented as of this encounter (statuses as of 03/20/2020) Active Problems Problem Noted Date Uncontrolled type [...] as of this encounter (statuses as of 03/20/2020) Resolved Problems Problem Noted Date Resolved Date [...] as of this encounter (statuses as of 03/20/2020) Immunizations Name Administration Dates Next Due Pneumococcal [...] have Coronavirus / COVID-19? No / Unsure 03/19/2020 11:21 AM EDT documented as of this encounter Miscellaneous Notes * Telephone Encounter - Mattie Hilario LPN - 03/20/2020 8:44 AM EDT Called patient, she picked up med yesterday * Telephone Encounter - Kevin Whiteside DO - 03/20/2020 8:22 AM EDT Just clarifying - patient is out of Tramadol? Per her chart a script was ordered on the 13 of March - but per PDMP she never picked it up. Can she just fill the script that was ordered? * Telephone Encounter - Brooke Jose RN - 03/14/2020 11:55 AM EDT T/c to pt for 48 hour f/u after ER visit States mag was low-normal at ER visit [facility] better after she rec'd mag Realized that she had not been taking her daily mag dose but is taking again as prescribed Taking dicyclomine prn Had bm today Generalized pain today 3/10 which is ''normal day'' for her Taking apap but is out of tramadol Will forward message to PCP for request for refill Agreed to call [facility] with concerns documented in this encounter Plan of Treatment Upcoming Encounters Date Type Specialty Care Team Description 03/24/2020 Home Visit Family Medicine Mira Duong, [facility] Cash Application 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 [address] [place], [place] [id number] 04/15/2020 Home Visit [facility] Brooke Jose, RN [address] [place] [address] [phone] 05/08/2020 Office Visit Family Medicine Kevin Whiteside, DO [address] [place] [address] [phone] 05/28/2020 Office Visit Cardiology Marjorie Powell PA-C [address] [place] [address] [phone] 06/03/2020 Office Visit Dermatology Apple Kaminski MD [address] [place] [address], [place] [address] [phone] 06/25/2020 Office Visit Pharmacy [facility] [address] [place] [address] 07/10/2020 Office Visit Orthopedics Zack Teague, [address] [place] [address] [phone] 07/11/2020 Imaging Radiology 11/27/2020 Office Visit Pulmonary Celsa Tafoya CRNP [address] [place] [address] [phone] Health Maintenance Due Date Last Done Comments [...] Documents on File Type Date Recorded Patient Bull Float Finisher Expl 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
--- OUTSIDE RECORDS SUMMARY | 2023-06-01 05:24 | External Medical Summary | Summary of Care ---
Author Name Unknown Organization [place] [address] Care Team Providers Care Solar Energy System Installer Name Role Phone Kevin Whitesidemelinda Primary Care Provider Reason for Visit * Reason Comments Emergency Department Follow-Up Pt seen a [facility], here for recheck. Pt states she was seen again last night cellulitis R lower leg and illius. Pt states she is feeling better today. Encounter Details Date Type Department Care Team Description 03/13/2020 Office Visit Family Practice [facility] [address] [place] [address] Angi Barr PA-C [address] [place] [id number] Chronic pain syndrome*; Restless legs syndrome; Lower abdominal pain; HTN, goal below 130/80 Allergies Active Allergy Reactions Severity Noted Date Comments Pollen 05/18/2019 Heparin 09/04/2009 Heparin Induced Thrombocytopenia Empagliflozin Other (Please comment) Medium 05/17/2018 3 yeast infections in 6 weeks after starting Morphine And Related 09/16/1997 Hallucinations Tetanus Toxoid Other (Please comment) 06/15/2011 Passed out documented as of this encounter (statuses as of 03/16/2020) Medications Medication Sig Dispensed Refills Start Date [...] current use of insulin ([facility]) Inject 1.5 mg under the skin once a week. 15 mL 3 12/18/2019 Active Nortriptyline HCl (PAMELOR) 50 MG CapsuleIndications: Fibromyalgia Take 1 Cap by mouth at bedtime. 90 Cap 3 12/18/2019 Active gabapentin (NEURONTIN) 300 MG CapsuleIndications: Type 2 diabetes mellitus with hemoglobin A1c goal of 7.0%-8.0% ([facility]) Take 1 Cap by mouth [...] 1 02/28/2020 Active clonazePAM (KLONOPIN) 0.5 MG TabletIndications:A nxiety state TAKE ONE TABLET BY MOUTH TWICE DAILY 60 Tab 0 03/04/2020 Active ciprofloxacin (CIPRO) 500 MG TabletIndications:L ower abdominal pain Take 1 Tab by mouth every 12 hours for 5 days. 10 Tab 0 03/12/2020 0 Active dicyclomine (BENTYL) 20 MG Tablet 0 03/13/2020 Active traMADol (ULTRAM) 50 MG TabletIndications:C hronic pain syndrome Take 1 Tab by mouth every 8 hours as needed for Pain, Severe. 90 Tab 0 03/13/2020 Active DULoxetine (CYMBALTA) 60 MG CPEPIndications:Fib romyalgia,Moderate episode of recurrent major depressive disorder (HCC),Primary osteoarthritis of both knees Take 1 Cap by mouth daily. Along with 30 mg capsule to total 90 mg daily. 90 Cap 3 12/18/2019 0 Discontinue d(Refill) DULoxetine (CYMBALTA) 30 MG CPEP Take 1 Cap by mouth daily. Take along with the 60mg dose for totally of 90mg daily. Do not cut, crush or chew 90 Cap 3 12/18/2019 0 Discontinue d(Refill) rOPINIRole (REQUIP) 2 MG TabletIndications:R estless legs syndrome Take 1 Tab by mouth at bedtime. 90 Tab 3 12/18/2019 0 Discontinue d(Refill) metoprolol tartrate (LOPRESSOR) 25 MG TabletIndications:H TN, goal below 130/80,Acute diastolic congestive heart failure (HCC),Body mass index (BMI) of 50.0 to 59.9 in adult (HCC),Hypoxemia,ELISSA (obstructive sleep apnea),HTN, goal below 140/80 Take 0.5 Tabs by mouth 2 times a day. 90 Tab 3 12/18/2019 0 Discontinue d(Refill) traMADol (ULTRAM) 50 MG TabletIndications:C hronic pain syndrome TAKE ONE TABLET BY MOUTH EVERY EIGHT HOURS NEEDED FOR SEVERE PAIN 90 Tab 0 01/29/2020 0 Discontinue d(Refill) documented as of this encounter (statuses as of 03/16/2020) Active Problems Problem Noted Date Uncontrolled type [...] 10/14/2014 Overview: ICD-10 update of inactive term Echo filter in place 08/19/2014 History of pulmonary [...] as of this encounter (statuses as of 03/16/2020) Resolved Problems Problem Noted Date Resolved Date [...] as of this encounter (statuses as of 03/16/2020) Immunizations Name Administration Dates Next Due Pneumococcal [...] have Coronavirus / COVID-19? No / Unsure 03/14/2020 12:07 PM EDT documented as of this encounter Last Filed Vital Signs Vital Sign Reading Time Taken Comments Blood Pressure 126/60 03/13/2020 3:14 PM EDT Pulse 84 03/13/2020 3:14 PM EDT Temperature 35.7 C (96.3 F) 03/13/2020 3:14 PM ED T Respiratory Rate 16 03/13/2020 3:14 PM EDT Oxygen Saturation - - Inhaled Oxygen Concentration - - Weight 144.9 kg (319 lb 8 oz) 03/13/2020 3:14 PM EDT Height - - Body Mass Index 54.84 03/07/2020 10:37 AM EDT documented in this encounter Progress Notes * Angi Barr PA-C - 03/13/2020 3:20 PM EDT Stephanie Camp is a 64 year old year old female who presents for : Chief Complaint Patient presents with Emergency Department Follow-Up Pt seen at [facility], here for recheck. Pt states she was seen again last night cellulitis R lower leg and illius. Pt states she is feeling better today. HPI: Pt here for ER follow up. Was seen at [facility] on 03/10/20 for abd pain with intermittent diarrhea, was having diffuse pain, RLQ worse, colicky at times, pt does have hx of diverticulitis with perforationwhich resulted in colostomy and subsequent reversal. At ER CT abdomen with no diverticulitis, some evidence suggestive of ileus. Dx with possible cystitis and ileus. Was given IV rocephin and bactrim. Had continued abd pain. Inevitably had negative urine culture. Seen by Nga at home CLOTHING BUSHELER yesterday, given cipro. Pain was bad last night, went back to ER at [facility] last night. Last night labs done, mag was 1.7. Given pain medication and magnesium as well. Pt discharged with dicyclomine. Pt does feel better today. Today overall having less pain. No BM yet today. Yesterday had some loose stools but not constant. No black or bloody stools. Hardyer at home to follow up with her tomorrow. No fever, chills, cough. She does have body aches but relates this to being so physically tense with her abd pain. She needs a refill of her tramadol, Cymbalta and ropinirole. Urinating well, no problems. States above problems started after eating a large salad, trying to be healthy. REVIEW OF SYSTEMS: See HPI for pertinent positives and negatives. Patient denies addtional complaints. PAST MEDICAL HISTORY: Past Medical History: Diagnosis Date ELSIE (acute kidney injury) (HCC) 06/12/2018 Allergic rhinitis due to other allergen Backache Diverticulosis of colon 01/28/06 DM type 2, not at goal ([facility]) ELLIE (generalized anxiety disorder) 09/13/2009 Goiter Frank filter in place 08/19/2014 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HCC) 08/22/2009 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[facility]) 06/12/2018 History of pulmonary embolus (PE) 07/16/2014 HTN, goal below 140/90 Impetigo 09/27/2018 Obesity, BMI not known Perforation of intestine ([facility]) 1996 COLON -- 1996 Pneumonia in aspergillosis(484.6) 09/14/2009 Spontaneous pneumothorax 09/14/2009 Statin intolerance 07/16/2014 Type 2 diabetes mellitus with hemoglobin A1c goal of 7.0%-8.0% ([facility]) 10/14/2014 ICD-10 update of inactive term Vaginal karmen 07/13/2018 Past Surgical History: Procedure Laterality Date ARTHROPLASTY KNEE TOTAL Right 07/24/14 R COLONOSCOPY, DIAGNOSTIC (RECTUM) 02/18/2016 normal, repeat 10 yrs/[facility] COLONOSCOPY, GI REFERRAL OP 01/28/06 diverticulosis--repeat 10 years INCISION OF WINDPIPE, PLANNED 06/03/2011 TRACHEOSTOMY PLANNED performed by DANNY HOLDER at [facility] KNEE ARTHROSCOPY/DEBRIDEMENT 07/[address] PERMANENT GASTROSTOMY TUBE 09/06/09 GASTROSTOMY WITH CONSTUCTION GASTRIC TUBE performed by AMADOU NUNEZ at [facility] REMOVAL OF THYROID GLAND 06/15/2011 THYROIDECTOMY INCLUDING SUBSTERNAL THYROID CERVICAL APPROACH performed by DANNY HOLDER at [facility] REMOVE GALLBLADDER 09/06/09 CHOLECYSTECTOMY performed by AMADOU NUNEZ at [facility] REPAIR RECURRENT INCISIONAL HERNIA 1998 REVISION OF COLOSTOMY, SIMPLE 1998 SUTURE, LARGE INTESTINE W/COLOSTOMY 1996 perforation R colon with colostomy VENA CAVA FILTER/LIGATION/CLIP 08/19/09 Frank filter placement through the right femoral 08/19/[address] Lerma at [facility] Social History Tobacco Use Smoking status: Former Smoker Packs/day: 1.00 Years: 15.00 Pack years: 15.00 Last attempt to quit: 08/26/1997 Years since quittin.5 Smokeless tobacco: Never Used Substance Use Topics Alcohol use: Not Currently Comment: rare Vaping/E-Cigarette Use Vaping/E-Cigarette Use Never User Vaping/E-Cigarette Substances Vaping/E-Cigarette Devices Patient Active Problem List Diagnosis Code Dyslipidemia E78.5 ELLIE (generalized anxiety disorder) F41.1 Postsurgical hypothyroidism E89.0 Nocturnal hypoxemia G47.34 ELISSA (obstructive sleep apnea) G47.33 Venous insufficiency I87.2 HTN, goal below 130/80 I10 History of pulmonary embolus (PE) Z86.711 Statin intolerance Z78.[address] Z95.828 Type 2 diabetes mellitus with hemoglobin A1c goal of 7.0%-8.0% ([facility]) E11.9 Fibromyalgia M79.7 Abnormality of gait R26.9 Restless legs syndrome G25.81 Gastroesophageal reflux disease with esophagitis K21.0 Body mass index (BMI) of 50.0 to 59.9 in adult ([facility]) Z68.43 Controlled substance agreement signed Z79.899 Chronic diastolic congestive heart failure ([facility]) I50.32 Thoracic back pain M54.6 Mild episode of recurrent major depressive disorder ([facility]) F33.0 Lumbar radiculopathy M54.16 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, NYHA class 1 and CKD stage 3 ([facility]) I13.0, I50.30, N18.3 Chronic respiratory failure with hypoxia ([facility]) J96.11 Hyperparathyroidism, secondary renal ([facility]) N25.81 Vasculitis ([facility]) I77.6 Primary osteoarthritis of left knee M17.12 Uncontrolled type 2 diabetes mellitus with stage 4 chronic kidney disease, with long-term current use of insulin ([facility]) E11.22, E11.65, N18.4, Z79.4 Family History Problem Relation Age of Onset Cancer Father lung - age 74 (smoker) Cancer Mother liver - age 45 Heart Disorder Brother age 45 - possible tumor Diabetes Grandmother (Paternal) Cancer Grandfather (Paternal) bone ca - in 70's Review of patient's allergies indicates: Allergen Reactions Jardiance [Empagliflozin] Other (Please comment) 3 yeast infections in 6 weeks after starting Hay Fever [Pollen] Heparin Heparin Induced Thrombocytopenia Morphine And Related Hallucinations Tetanus Toxoid Other (Please comment) Passed out Current Outpatient Medications Medication Sig Dispense Refill ciprofloxacin (CIPRO) 500 MG Tablet Take 1 Tab by mouth every 12 hours for 5 days. 10 Tab 0 clonazePAM (KLONOPIN) 0.5 MG Tablet TAKE ONE TABLET BY MOUTH TWICE DAILY 60 Tab 0 levothyroxine (LEVOXYL) 25 MCG Tablet TAKE [...] 1/2 tab daily 45 Tab 1 traMADol (ULTRAM) 50 MG Tablet TAKE ONE TABLET BY MOUTH EVERY EIGHT HOURS NEEDED FOR SEVERE PAIN 90 Tab 0 insulin aspart (INSULIN ASPART) 100 UNIT/ML injection [...] mg by mouth daily. 90 Tab 3 metoprolol tartrate (LOPRESSOR) 25 MG Tablet Take 0.5 Tabs by mouth 2 times a day. 90 Tab 3 Nortriptyline HCl (PAMELOR) 50 [...] 60 g 1 Blood Glucose Monitoring Suppl (ONETOUCH ULTRA 2) [...] times a day as needed for Constipation. DULoxetine (CYMBALTA) 30 MG CPEP Take 1 Cap by mouth daily. Take along with the 60mg dose for totally of 90mg daily. Do not cut, crush or chew 90 Cap 3 DULoxetine (CYMBALTA) 60 MG CPEP Take 1 Cap by mouth daily. Along with 30 mg capsule to total 90 mgdaily. 90 Cap 3 rOPINIRole (REQUIP) 2 MG Tablet Take 1 Tab by mouth at bedtime. 90 Tab 3 ONETOUCH DELICA LANCETS 33G MISC Check blood sugars 3-4 times daily 180 Each 5 Nursing Notes and Vital Signs reviewed. PHYSICAL EXAM: VITALS: BP 126/60 | Pulse 84 | Temp (Src) 96.3 (Tympanic) | Resp 16 | Wt 319 lbs 8 oz (144.924kg) |BMI 54.84 kg/m | BSA 2.56 m | LMP 03/11/2003 GENERAL: Patient is alert, well appearing, no obvious distress HEAD: Normocephalic, no masses, lesions, or other abnormalities noted. EYE EXAM: Normal conjunctiva, PERRL and EOM's intact. Chest: normal chest symmetry and expansion, normal AP diameter. LUNGS: Normal respiratory rate and normal respiratory effort. No wheeze, rhonchi or rales HEART: RRR, no murmurs ABDOMEN: Obese, some RLQ abd tenderness noted + bowel sounds in 4 quadrants, no palpable masses. SKIN: Normal, no rashes and no bruising. Assessment: Chronic pain syndrome (Primary) - traMADol (ULTRAM) 50 MG Tablet; Take 1 Tab by mouth every 8 hours as needed for Pain, Severe. Restless legs syndrome Lower abdominal pain HTN, goal below 130/80 Pt improving today. May continue cipro and dicyclomine for abd pain. Continue to monitor. Considered flagyl addition but since improving will hold. Medication renewed per request. Reviewed pt care with PCP. Cont all other chronic meds as before. Angi Barr PA-C [facility] [address] [place] [address] documented in this encounter Nursing Notes * Hortencia Aguirre LPN - 03/13/2020 3:18 PM EDT The patient has been properly identified by confirmation of name and date of . Chief Complaint Patient presents with Emergency Department Follow-Up Pt seen at [facility], here for recheck. Pt states she was seen again last night cellulitis R lower leg and illius. Pt states she is feeling better today. documented in this encounter Plan of Treatment Upcoming Encounters Date Type Specialty Care Team Description 03/19/2020 Office Visit Pharmacy [facility] [address] [place] [address] 03/24/2020 Home Visit Family Medicine Mira Duong, [facility] [address] [place] [address] [phone] 04/15/2020 Home Visit [facility] Brooke Jose RN [address] [place] [address] [phone] 05/08/2020 Office Visit Family Medicine Kevin Whiteside DO [address] [place] [address] [phone] 05/28/2020 Office Visit Cardiology Marjorie Powell PA-C [address] [place] [address] [phone] 06/03/2020 Office Visit Dermatology Apple Kaminski MD [address] [place] [address], [place] [address] [phone] 07/10/2020 Office Visit Orthopedics Zack Teague, [address] [address] [phone] 07/11/2020 Imaging Radiology 11/27/2020 Office Visit Pulmonary Celsa Tafoya CRNP [address] [place] [address] [phone] Health Maintenance Due Date Last Done Comments [...] this encounter Visit Diagnoses Diagnosis Chronic pain syndrome- Primary Restless legs syndrome Restless legs syndrome (RLS) Lower abdominal pain Abdominal pain, other specified site HTN, goal below 130/80 Unspecified essential hypertension documented in this encounter Advance Directives Documents on File Type Date Recorded Patient Can Cutter Expl anation Advanced Directive 08/22/2009 12:00 AM Advanced Directive 05/28/2011 12:00 AM Advanced Directive 06/11/2011 12:00 AM Advanced Directive Advanced Directive Advanced Directive Advanced Directive Advanced Directive Advanced Directive Advanced Directive Advanced Directive Latest Code Status on File Code Status [...]
--- OUTSIDE RECORDS SUMMARY | 2023-06-01 05:24 | External Medical Summary | Summary of Care ---
Author Name Unknown Organization [place] [address] Care Team Providers Care Entry Level Staff Accountant Name Role Phone Migue Whiteside DO Primary Care Provider Reason for Visit * Reason Comments eRx-Medication Refill Encounter Details Date Type Department Care Team Description 03/12/2020 Refill Family Practice [facility] [address] [facility] [place] [address] Migue Whiteside DO [address] [facility] [address] [phone] HTN, goal below 130/80; Acute diastolic congestive heart failure (HCC); Body mass index (BMI) of 50.0 to 59.9 in adult (HCC); Hypoxemia; ELISSA (obstructive sleep apnea); HTN, goal below 140/80; Restless legs syndrome Allergies Active Allergy Reactions Severity Noted Date Comments Pollen 05/18/2019 Heparin 09/04/2009 Heparin Induced Thrombocytopenia Empagliflozin Other (Please comment) Medium 05/17/2018 3 yeast infections in 6 weeks after starting Morphine And Related 09/16/1997 Hallucinations Tetanus Toxoid Other (Please comment) 06/15/2011 Passed out documented as of this encounter (statuses as of 03/13/2020) Medications Medication Sig Dispensed Refills Start Date [...] of insulin ([facility]) Inject 1.5 mg under the skin [...] PER DAY 10 mL 0 01/17/2020 Active traMADol (ULTRAM) 50 MG TabletIndications:C hronic pain syndrome TAKE ONE TABLET BY MOUTH EVERY EIGHT HOURS NEEDED FOR SEVERE PAIN 90 Tab 0 01/29/2020 Active colchicine 0.6 MG TabletIndications:L eukocytoclastic vasculitis [...] days. 10 Tab 0 03/12/2020 0 Active DULoxetine (CYMBALTA) 30 MG CPEP [...] a day. 90 Tab 3 03/13/2020 Active metoprolol tartrate (LOPRESSOR) 25 MG TabletIndications:H TN, goal below 130/80,Acute diastolic congestive heart failure (HCC),Body mass index (BMI) of 50.0 to 59.9 in adult (HCC),Hypoxemia,ELISSA (obstructive sleep apnea),HTN, goal below 140/80 Take 0.5 Tabs by mouth 2 times a day. 90 Tab 3 12/18/2019 0 Discontinue d(Refill) documented as of this encounter (statuses as of 03/13/2020) Active Problems Problem Noted Date Uncontrolled type [...] 10/14/2014 Overview: ICD-10 update of inactive term Murdo filter in place 08/19/2014 History of pulmonary [...] as of this encounter (statuses as of 03/13/2020) Resolved Problems Problem Noted Date Resolved Date [...] as of this encounter (statuses as of 03/13/2020) Immunizations Name Administration Dates Next Due Pneumococcal [...] have Coronavirus / COVID-19? No / Unsure 03/13/2020 3:38 AM EDT documented as of this encounter Miscellaneous Notes * Telephone Encounter - Betsey Lindsey, [facility] - 03/13/2020 3:58 PM EDT Signed Prescriptions: Disp Refills metoprolol tartrate (LOPRESSOR) 25 MG Tabl*90 Tab 3 Sig: Take 0.5 Tabs by mouth 2 times a day.Authorizing Provider: MIGUE WHITESIDE User: BETSEY ALARCONfused Prescriptions: Disp Refills DULoxetine (CYMBALTA) 30 MG CPEP [Pharmacy*90 Cap 0 Sig: TAKE ONE CAPSULE BY MOUTH DAILY. take with 60mg dose for total of 90mg. do not cut crush or chewRefused By: BETSEY ALARCON for Refusal: Duplicate Request metoprolol tartrate (LOPRESSOR) 25 MG Tabl*180 Tab0 Sig: TAKE ONE TABLET BY MOUTH TWICE DAILY Refused By: BETSEY ALARCON for Refusal: Other (comment below)Reason for Refusal Comment: dose adjusted rOPINIRole (REQUIP) 2 MG Tablet [Pharmacy *90 Tab 0 Sig: TAKE ONE TABLET BY MOUTH THREE TIMES DAILY Refused By: BETSEY ALARCON for Refusal: Duplicate Request * Telephone Encounter - Betsey Lindsey [facility] - 03/13/2020 3:58 PM EDT Adjusted dose to current. Thank You, Betsey Alarcon [facility] Staff Pharmacist Pharmacy Refill Call Center 03/13/2020, 3:58 PM * Telephone Encounter - Betsey Lindsey [facility] - 03/13/2020 3:53 PM EDT Pending Prescriptions: Disp Refills DULoxetine (CYMBALTA) 30 MG CPEP [Pharmac*90 Cap 0 Sig: TAKE ONE CAPSULE BY MOUTH DAILY. take with 60mg dose for total of 90mg. do not cut crush or chew metoprolol tartrate (LOPRESSOR) 25 MG Tab*180 Tab0 Sig: TAKE ONE TABLET BY MOUTH TWICE DAILY rOPINIRole (REQUIP) 2 MG Tablet [Pharmacy*90 Tab 0 Sig: TAKE ONE TABLET BY MOUTH THREE TIMES DAILY Last Office/Telemedicine Visit: 02/25/2020 Next Office Visit: 05/08/2020 Scheduled Provider(s): Migue Whiteside, DO If no future appointments scheduled, and last appointment is greater than a year ago, please schedule patient for a follow-up appointment Last date the medication was ordered: 12/18/19 Pharmacy: [id number] Is this request for a controlled [...] Results Component Value Date/Time CREAT 1.7 (H) 03/07/2020 11:48 AM POTASSIUM 3.7 03/07/2020 11:48 AM TSH 0.88 03/14/2019 01:54 PM LDLCALC UNINTERPRETABLE RESULT 03/14/2019 01:54 PM LDLDIRECT 109 07/14/2017 12:35 PM ALT 18 07/20/2019 10:42 AM HGBA1C 7.3 (H) 01/23/2020 11:11 AM documented in this encounter Plan of Treatment Upcoming Encounters Date Type Specialty Care Team Description 03/14/2020 Home Visit [facility] Brooke Jose RN [address] [address] [phone] 03/15/2020 Scheduled Telephone [facility] Linda Wilkinson RN [address] [place] [address] [phone] 03/19/2020 Office Visit Pharmacy [facility] [address] [place] [address] 03/24/2020 Home Visit Family Medicine Mira Duong, [facility] [employer] [address] [place] [address] [phone] 04/15/2020 Home Visit [facility] Brooke Jose RN [address] [place] [address] [phone] 05/08/2020 Office Visit Family Medicine Migue Whiteside, DO [address] [place] [address] [phone] 05/28/2020 Office Visit Cardiology Marjorie Powell PA-C [address] [place] [address] 06/03/2020 Office Visit Dermatology Apple Kaminski MD [address] [facility] [place] [address] [phone] 07/10/2020 Office Visit Orthopedics Betsey Teague, DO [address] [place] [address] 07/11/2020 Imaging Radiology 11/27/2020 Office Visit Pulmonary Celsa Tafoya CRNP [address] [place] [address] Health Maintenance Due Date Last Done Comments Pneumococcal Vaccine: Pediatrics (0 to 5 Years) and At-Risk Patients (6 to 64 Years) (3 of 3 - PCV13) 08/22/2010 08/22/2009, 06/15/2006 Zoster Vaccines (3 of 3) 01/02/2020 11/07/2019, 11/24 DIABETES-EYE EXAM 04/05/2020 04/05/2019, (Done elsewhere), 12/18/2009, [...] as of this encounter Visit Diagnoses Diagnosis HTN, goal below 130/80 Unspecified essential hypertension Acute diastolic congestive heart failure (HCC) Acute diastolic heart failure Body mass index (BMI) of 50.0 to 59.9 in adult (HCC) Hypoxemia ELISSA (obstructive sleep apnea) Obstructive sleep apnea (adult) (pediatric) HTN, goal below 140/80 Unspecified essential hypertension Restless legs syndrome Restless legs syndrome (RLS) documented in this encounter Advance Directives Documents on File Type Date Recorded 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
--- OUTSIDE RECORDS SUMMARY | 2023-06-01 05:24 | External Medical Summary | Summary of Care ---
Author Name Unknown Organization [place] [address] Care Team Providers Care Waste And Batting Waste Chopper Name Role Phone Kevin Whiteside DO Primary Care Provider Reason for Visit * Reason Comments Medication Pre-auth traMADol (ULTRAM) 50 MG Tablet Encounter Details Date Type Department Care Team Description 03/13/2020 Telephone Family Practice [facility] [address] [place] [address] Kevin Whiteside DO [address] [facility] [place] [address] Medication Pre-auth (traMADol (ULTRAM) 50 ... Allergies Active Allergy Reactions Severity Noted Date Comments Pollen 05/18/2019 Heparin 09/04/2009 Heparin Induced Thrombocytopenia Empagliflozin Other (Please comment) Medium 05/17/2018 3 yeast infections in 6 weeks after starting Morphine And Related 09/16/1997 Hallucinations Tetanus Toxoid Other (Please comment) 06/15/2011 Passed out documented as of this encounter (statuses as of 03/14/2020) Medications Medication Sig Dispensed Refills Start Date [...] 3 08/30/2018 Active Blood Glucose Monitoring Suppl (Neph[employer]. ULTRA 2) w/Device KIT Use to [...] use of insulin ([facility]) Inject 1.5 mg under the skin once a week. 15 mL 3 12/18/2019 Active Nortriptyline HCl (PAMELOR) 50 MG CapsuleIndications:F ibromyalgia Take 1 Cap by mouth at bedtime. 90 Cap 3 12/18/2019 Active gabapentin (NEURONTIN) 300 MG CapsuleIndications:T ype 2 diabetes mellitus with hemoglobin A1c goal of 7.0%-8.0% ([facility]) Take 1 Cap by mouth [...] 0 03/04/2020 Active ciprofloxacin (CIPRO) 500 MG TabletIndications:Lo wer [...] as of this encounter (statuses as of 03/14/2020) Active Problems Problem Noted Date Uncontrolled type [...] as of this encounter (statuses as of 03/14/2020) Resolved Problems Problem Noted Date Resolved Date [...] as of this encounter (statuses as of 03/14/2020) Immunizations Name Administration Dates Next Due Pneumococcal [...] encounter Miscellaneous Notes * Telephone Encounter - Jennifer Gann LPN - 03/14/2020 11:01 AM EDT Prior auth started for tramadol * Telephone Encounter - Mikayla Griffin PHARM Tech - 03/13/2020 5:09 PM EDT Pharmacy calling to inform doctor that the pt's insurance will not pay for this medication without a completed prior authorization. . Please complete with the following information: Patient name: Stephanie Camp ID number: [id number] BIN number: [id number] PCN number: [id number] Group number: [id number] Subscriber name: Stephanie Camp Primary or Secondary Insurance:Primary Medication: traMADol (ULTRAM) 50 MG Tablet Reason for Request: [place] required Pharmacy: [id number] [phone] Rx plan and phone number: [facility] What alternative medications does the pharmacy have in stock?: N/A List of medications pt has tried and failed: N/A Thank You, Mikayla Griffin Cloth Shrinking Machine Operator Refill Call Center 03/13/2020, 5:09 PM documented in this encounter Plan of Treatment Upcoming Encounters Date Type Specialty Care Team Description 03/15/2020 Scheduled Telephone [facility] Linda Wilkinson RN [address] [place] [address] [phone] 03/19/2020 Office Visit Pharmacy [facility] [address] [place] [address] 03/24/2020 Home Visit Family Medicine Mira Duong, Community Health Order Detailer [address] [place] [address] 04/15/2020 Home Visit [facility] Brooke Jose RN [address] [place] [address] [phone] 05/08/2020 Office Visit Family Medicine Kevin Whiteside DO [address] [place] [address] [phone] 05/28/2020 Office Visit Cardiology Marjorie Powell PA-C [address] [place] [address] [phone] 06/03/2020 Office Visit Dermatology Apple Kaminski MD [address] [place] [address], [place] [address] [phone] 07/10/2020 Office Visit Orthopedics Zack Teague, [address] [place] [address] [phone] 07/11/2020 Imaging Radiology 11/27/2020 Office Visit Pulmonary Celsa Tafoya CRNP [address] [place] [address] [phone] Health Maintenance Due Date Last Done Comments [...] on File Type Date Recorded Patient Sustainability Officer Expl 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
--- OUTSIDE RECORDS SUMMARY | 2023-06-01 05:24 | External Medical Summary | Summary of Care ---
Author Name Unknown Organization [facility] [place] [address] Care Team Providers Care Motorcycle Deliverer Name Role Phone Whiteside Kevin Ocampomelinda Primary Care Provider Reason for Visit * Reason Comments [facility]: Maintenance Encounter Details Date Type Department Care Team Description 03/15/2020 Scheduled Telephone [facility] [address] [facility] [place] [address] Linda Wilkinson, RN [address] [facility] [place] [address] [phone] Allergies Active Allergy Reactions Severity Noted Date Comments Pollen 05/18/2019 Heparin 09/04/2009 Heparin Induced Thrombocytopenia Empagliflozin Other (Please comment) Medium 05/17/2018 3 yeast infections in 6 weeks after starting Morphine And Related 09/16/1997 Hallucinations Tetanus Toxoid Other (Please comment) 06/15/2011 Passed out documented as of this encounter (statuses as of 03/15/2020) Medications Medication Sig Dispensed Refills Start Date [...] 3 08/30/2018 Active Blood Glucose Monitoring Suppl (Sleep SolutionsUCH ULTRA 2) w/Device KIT Use to [...] exertion. 0 11/28/2019 Active ACC[facility]IX [facility] Test blood sugar three or four times daily as directed 400 Each 3 12/18/2019 Active Dulaglutide (TRULICITY) 1.5 MG/0.5ML SOPNIndications:DM type 2 nursing care encounter ([facility]),Uncontrolled type 2 diabetes mellitus with stage 3 chronic kidney disease, with long-term current use of insulin ([facility]) Inject 1.5 mg under [...] as of this encounter (statuses as of 03/15/2020) Active Problems Problem Noted Date Uncontrolled type [...] 10/14/2014 Overview: ICD-10 update of inactive term [place] filter in place 08/19/2014 History of pulmonary [...] as of this encounter (statuses as of 03/15/2020) Resolved Problems Problem Noted Date Resolved Date [...] as of this encounter (statuses as of 03/15/2020) Immunizations Name Administration Dates Next Due Pneumococcal [...] Telephone Encounter - Rosalee Barker LPN - 03/15/2020 11:05 AM EDT Pt seen in the ED 03/09- phone call follow up Spoke with Stephanie- She reports feeling much better today. No cramping. Fibromylagia is acting up a bit today rates pain 5/10, a normal day is 3/10. Has bnot had much of an appeite lately, is trying m,ore frequent smaller meals. Encouraged she staywell hydrated but maintain 1.5 l fluid restriction. Taking meds as instructed Agreed to call [facility] [phone] with concerns or new symptoms documented in this encounter Plan of Treatment Upcoming Encounters Date Type Specialty Care Team Description 03/19/2020 Office Visit [facility]acy [facility] [address] [place] [address] 03/24/2020 Home Visit Family Medicine Mira Duong, Community Health Biosecurity Officer [address] [place] [address] 04/15/2020 Home Visit [facility] Brooke Jose, RN [address] [place] [address] [phone] 05/08/2020 Office Visit Family Medicine Kevin Whiteside DO [address] [place] [address] [phone] 05/28/2020 Office Visit Cardiology Marjorie Powell, EVIN [address] [place] [address] 06/03/2020 Office Visit Dermatology Apple Kaminski MD [address] [facility], [place] [id number] 07/10/2020 Office Visit Orthopedics Zack Teague DO 132 [facility] [place] [address] 07/11/2020 Imaging Radiology 11/27/2020 Office Visit Pulmonary Celsa Tafoya CRNP 132 [facility] [place] [address] Health Maintenance [...] Documents on File Type Date Recorded Patient Applied Biology Professor Expl 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
--- OUTSIDE RECORDS SUMMARY | 2023-06-01 05:24 | External Medical Summary | Summary of Care ---
Author Name Unknown Organization [place] [address] Care Team Providers Care Screed Operator Name Role Phone Stevo Kevin Ocampomelinda Primary Care Provider Reason for Visit * Reason Comments Dosage Adjustment In Person (Anticoag Cl inic) Diabetes Follow-Up Encounter Details Date Type Department Care Team Description 03/19/2020 Office Visit Pharmacy, [facility] [address] [facility] [place] [address] [facility] [address] Type 2 diabetes mellitus with hemoglobin A1c goal of 7.0%-8.0% ([facility])* Allergies Active Allergy Reactions Severity Noted Date Comments Pollen 05/18/2019 Heparin 09/04/2009 Heparin Induced Thrombocytopenia Empagliflozin Other (Please comment) Medium 05/17/2018 3 yeast infections in 6 weeks after starting Morphine And Related 09/16/1997 Hallucinations Tetanus Toxoid Other (Please comment) 06/15/2011 Passed out documented as of this encounter (statuses as of 03/19/2020) Medications Medication Sig Dispensed Refills Start Date [...] 3 08/30/2018 Active Blood Glucose Monitoring Suppl ([employer] ULTRA 2) w/Device KIT Use to test [...] insulin ([facility]) Inject 1.5 mg under the skin once a week. 15 mL 3 12/18/2019 Active Nortriptyline HCl (PAMELOR) 50 MG CapsuleIndications:F ibromyalgia Take 1 Cap by mouth at bedtime. 90 Cap 3 12/18/2019 Active gabapentin (NEURONTIN) 300 MG CapsuleIndications:T ype 2 diabetes mellitus with hemoglobin A1c goal of 7.0%-8.0% ([facility]) Take 1 Cap by mouth [...] as of this encounter (statuses as of 03/19/2020) Active Problems Problem Noted Date Uncontrolled type [...] 10/14/2014 Overview: ICD-10 update of inactive term [place] filter in place 08/19/2014 History of pulmonary embolus (PE) 2013 Statin intolerance 07/16/2014 HTN, goal below 130/80 02/22/2014 Venous insufficiency 02/07/2013 ELISSA (obstructive sleep apnea) 09/16/2011 Overview: CPAP 11 cwp Mild, AHI 11.3 but with significant nocturnal hypoxemia Zhane Nocturnal hypoxemia 07/22/2011 Overview: Nocturnal ox 2 LPM 07/20/11 -- mean 84%, low 76%, time <89% 6:21 hours, TINY 47 DHC Postsurgical hypothyroidism 06/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 documented as of this encounter (statuses as of 03/19/2020) Resolved Problems Problem Noted Date Resolved Date [...] as of this encounter (statuses as of 03/19/2020) Immunizations Name Administration Dates Next Due Pneumococcal [...] as of this encounter Progress Notes * Mick Rose Aliya, [facility] - 03/19/2020 11:22 AM EDT Medication Therapy Disease Management CSII Follow-up Interval History: Stephanie Camp is an 64 year old year old female returning to the Medication Therapy Disease Management Clinic for a diabetes insulin pump follow-up visit. Blood glucose control since last visit: improved Medication intolerance: no Medication compliance: yes Medication contraindications: no Complicating factors/cost barriers: no Hospitalization or ED Utilization since last visit: no Hypoglycemia requiring assistance since last visit: no Current Diabetes Medications: Ozempic 0.50 mg weekly Medtronic 630G Insulin Pump (Serial Number: [id number]) Infusion Set: SureT Insulin: Novolog INC: Basal Rate: 4.75 units/hour Bolus: 22 units with breakfast, 22 units with lunch and 22 units with supper and 8 units with bedtime snack Bolus wizard: on and using ICR: 4 ISF: 8 Blood Glucose Goals: 120-150 Active Insulin Time: 4 hours [facility] Blood Glucose Review: Hypoglycemia Assessment: 1. Do [...] ([facility]) I50.32 Thoracic back pain M54.6 Mild episode of recurrent major depressive disorder (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) I13.0, I50.30, N18.3 Chronic respiratory failure with hypoxia ([facility]) J96.11 Hyperparathyroidism, secondary renal ([facility]) N25.81 Vasculitis ([facility]) I77.6 Primary osteoarthritis of left knee M17.12 Uncontrolled type 2 diabetes mellitus with stage 4 chronic kidney disease, with long-term current use of insulin ([facility]) E11.22, E11.65, N18.4, Z79.4 Review of patient's allergies indicates: Allergen Reactions Jardiance [Empagliflozin] Other (Please comment) 3 yeast infections in 6 weeks after starting Hay Fever [Pollen] Heparin Heparin Induced Thrombocytopenia Morphine And Related Hallucinations Tetanus Toxoid Other (Please comment) Passed out Current Outpatient Medications Medication Sig Dispense Refill dicyclomine (BENTYL) 20 MG Tablet DULoxetine (CYMBALTA) [...] as needed for Pain, Severe. 90 Tab0 clonazePAM (KLONOPIN) 0.5 MG Tablet TAKE ONE [...] times daily as directed 400 Each 3 Dulaglutide (TRULICITY) 1.5 MG/0.5ML SOPN Inject 1.5 mg under the skin once a week. 15 mL 3 gabapentin (NEURONTIN) 300 MG Capsule Take 1 Cap by mouth 3 times a day. 270 Cap 3 Glucose Blood (Face to Face LiveUCH ULTRA BLUE) STRP Check sugars 3-4 times [...] 60 g 1 Blood Glucose Monitoring Suppl ([employer]TOUCH ULTRA 2) w/Device KIT Use to [...] (Freddy JOHNS JrRonald, et al., 2013) is: 14.1% Values used to calculate the score: Age: 64 years Sex: Female Is Non- : No Diabetic: Yes Tobacco smoker: No Systolic Blood Pressure: 126 mmHg Is BP treated: Yes HDL Cholesterol: 36 mg/dL Total Cholesterol: 183 mg/dL Estimated body mass index is 54.84 kg/m as calculated from the following: Height as of 03/07/20: 1.626 m (5' 4"). Weight as of 03/13/20: 144.9 kg (319 lb 8 oz). BP Readings from Last 3 Encounters: 03/13/20 126/60 03/12/20 120/65 03/03/20 118/64 No POC orders found HEMOGLOBIN, A1C(%) Nessa [...] FINAL Value: UNINTERPRETABLE RESULT BASIC METAB PANEL, BMP Nessa Dt/Tm Resulted [...] F ALT(U/L) Nessa Dt/Tm Resulted Value Status 07/20/19 10:42A 07/20/19 18 FINAL Assessment & Plan: Glycemic control is stable but not at goal Patient agreeable to continue medications as noted below. Basal settings continued as glucose is stable overnight and between meals. ICR/fixed dose continued as glucose is stable postprandially. ISF continued as glucose is correcting to goal range. Patient to SMBG at least 4 times daily, before each meal and at bedtime. Patient aware to contact clinic if any hypoglycemia before next visit. Reviewed rule of 15s. Reviewed appropriate management of hyperglycemia as noted in pump start documentation. Diabetes Medications: Ozempic 0.50 mg weekly Medtronic 630G Insulin Pump (Serial Number: [id number]) Infusion Set: SureT Insulin: Novolog INC: Basal Rate: 4.75 units/hour Bolus: 22 units with breakfast, 22 units with lunch and 22 units with supper and 8 units with bedtime snack Bolus wizard: on and using ICR: 4 ISF: 8 Blood Glucose Goals: 120-150 Active Insulin Time: 4 hours Diabetes Health Maintenance: up-to-date Return to Clinic: 12 week(s) Next Office Visit: 06/25/2020 [facility] Clinical Pharmacist Medication Therapy Disease Management 03/19/2020, 11:22 AM documented in this encounter Plan of Treatment Upcoming Encounters Date Type Specialty Care Team Description 03/24/2020 Home Visit Family Medicine Mira Duong, Community Health Lease Broker [address] [place] [address] [phone] 04/15/2020 Home Visit [facility] Brooke Jose RN [address] [place] [address] [phone] 05/08/2020 Office Visit Family Medicine Kevin Whiteside DO [address] [place] [address] [phone] 05/28/2020 Office Visit Cardiology Marjorie Powell PA-C [address] [place] [address] [phone] 06/03/2020 Office Visit Dermatology Apple Kaminski MD [address] [place] [address] [phone] 06/25/2020 Office Visit Pharmacy [facility] [place] [address] [place] [address] 07/10/2020 Office Visit Orthopedics Zack Teague DO [address] [place] [address] [phone] 07/11/2020 Imaging Radiology 11/27/2020 Office Visit Pulmonary Celsa Tafoya CRNP [address] [place] [address] [phone] Health Maintenance Due Date Last Done Comments [...] ([facility])- Primary documented in this encounter Advance Directives Documents on File Type Date Recorded Patient Accountant Bookkeeper Expl 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
--- OUTSIDE RECORDS SUMMARY | 2023-06-01 05:24 | External Medical Summary | Summary of Care ---
Author Name Unknown Organization [place] [address] Care Team Providers Care Tractor Trailer Moving Van Driver Name Role Phone Stevo Kevin Ocampomelinda Primary Care Provider Reason for Visit * Reason Comments [facility]: Maintenance Encounter Details Date Type Department Care Team Description 03/24/2020 Home Visit Care Coordination [address] [place] [address] Magaly Morales, Community Health Sealer Operator [address] [place], [place] [id number] Benign hypertensive heart and kidney disease with [...] as of this encounter (statuses as of 03/24/2020) Medications Medication Sig Dispensed Refills Start Date [...] 3 08/30/2018 Active Blood Glucose Monitoring Suppl (Friend[employer] Score ULTRA 2) w/Device KIT Use to test [...] as of this encounter (statuses as of 03/24/2020) Active Problems Problem Noted Date Uncontrolled type [...] 10/14/2014 Overview: ICD-10 update of inactive term [place] filter in place 08/19/2014 History of pulmonary [...] as of this encounter (statuses as of 03/24/2020) Resolved Problems Problem Noted Date Resolved Date [...] as of this encounter (statuses as of 03/24/2020) Immunizations Name Administration Dates Next Due Pneumococcal [...] in this encounter Progress Notes * Magaly Morales Community Health Sealer Operator - 03/24/2020 3:01 PM EDT [facility] Community Health Sealer Operator Visit Date: 03/24/2020 Time: 3:01 PM Name: Stephanie Camp : 1955 Source of Information: Patient Condition Changes: Are there any changes in medical condition since last visit? No Medications: Are there any changes in medication management since last visit? Yes DICYCLOMINE PRN Health Concerns: Does the patient have any [...] to an outstanding balance with care plus Plan: Notified Provider/Indoor Landscaper/Gardenerroving changer in condition Contact Care plus to further assist pt with giving insurance information Follow Up: Patient encouraged to call the intake phone number for all urgent but not emergent issues. Scheduled to follow up with patient as needed Appointment with CM in March Lisa Flores Health Sealer Operator 03/24/2020 3:01 PM documented in this encounter Plan of Treatment Upcoming Encounters Date Type Specialty Care Team Description 04/15/2020 Home Visit [facility] Brooke Jose, RN [address] [place] [address] [phone] 05/08/2020 Office Visit Family Medicine Kevin Whiteside, DO [address] [place] [address] [phone] 05/28/2020 Office Visit Cardiology Marjorie Powell PA-C [address] [place] [address] [phone] 06/03/2020 Office Visit Dermatology Apple Kaminski MD [address] [place] [address], [place] [address] [phone] 06/25/2020 Office Visit Pharmacy [facility] [place] [address] [place] [address] 07/10/2020 Office Visit Orthopedics Zack Teague, [address] [place] [id number] 07/11/2020 Imaging Radiology 11/27/2020 Office Visit Pulmonary Celsa Tafoya CRNP [address] [place] [address] [phone] Health Maintenance Due Date Last Done Comments [...] on File Type Date Recorded Patient Security Escort Expl 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
--- OUTSIDE RECORDS SUMMARY | 2023-06-01 05:24 | External Medical Summary | Summary of Care ---
Author Name Unknown Organization [place] [address] Care Team Providers Care Stonework Supervisor Name Role Phone Migue Whiteside DO Primary Care Provider Reason for Visit * Reason Comments eRx-Medication Refill Medication Refill Encounter Details Date Type Department Care Team Description 03/12/2020 Refill Family Practice [facility] 132 [facility] [place] [address] Migue Whiteside DO [facility] [place] [address] [phone] HTN, goal below 130/80; Acute diastolic congestive [...] 3 08/30/2018 Active Blood Glucose Monitoring Suppl (FleetCor TechnologiesTOUCH ULTRA 2) w/Device KIT Use to [...] use of insulin ([facility]) Inject 1.5 mg under the skin once a week. 15 mL 3 12/18/2019 Active Nortriptyline HCl (PAMELOR) 50 MG CapsuleIndications: Fibromyalgia Take 1 Cap by mouth at bedtime. 90 Cap 3 12/18/2019 Active gabapentin (NEURONTIN) 300 MG CapsuleIndications: Type 2 diabetes mellitus with hemoglobin A1c goal of 7.0%-8.0% ([facility]) Take 1 Cap by mouth [...] Telephone Encounter - Betsey Lindsey, [facility] - 03/13/2020 3:58 PM EDT Signed [...] Lindsey [facility] - 03/13/2020 3:58 PM EDT Adjusted dose to current. Thank You, Betsey Alarcon [facility] Staff Pharmacist Pharmacy Refill Call Center 03/13/2020, 3:58 PM * Telephone Encounter - Betsey Lindsey [facility] - 03/13/2020 3:53 PM EDT Pending [...] was ordered: 12/18/19 Pharmacy: [facility] [id number] Is this request for a controlled [...] Linda Wilkinson RN [address] [place] [address] [phone] 03/19/2020 Office Visit Pharmacy [facility] [address] [place] [address] 03/24/2020 Home Visit Family Medicine Mira Duong, Community Health Estate Planner [address] [place] [address] 04/15/2020 Home Visit [facility] Brooke Jose RN [address] [place] [address] [phone] 05/08/2020 Office Visit Family Medicine Migue Whiteside DO [address] [place] [address] [phone] 05/28/2020 Office Visit Cardiology Marjorie Powell, EVIN [address] [place] [address] 06/03/2020 Office Visit Dermatology Apple Kaminski MD [address] [facility], [place] [phone] 07/10/2020 Office Visit Orthopedics Betsey Teague DO 132 [facility] [place] [address] 07/11/2020 Imaging Radiology 11/27/2020 Office Visit Pulmonary Celsa Tafoya CRNP 132 [facility] [place] [address] Health Maintenance Due Date [...] Documents on File Type Date Recorded Patient Cashiers Bussers Food Runners Expl 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
--- OUTSIDE RECORDS SUMMARY | 2023-06-01 05:24 | External Medical Summary | Summary of Care ---
Author Name Unknown Organization [facility] [place] [address] Care Team Providers Care Spark Plug Assembler Name Role Phone Migue Whiteside DO Primary Care Provider Reason for Visit * Reason Comments Medication Refill Medication Refill Encounter Details Date Type Department Care Team Description 03/12/2020 Refill Family Practice [facility] [address] [facility] [place] [id number] Migue Whiteside DO [address] [facility] [place] [address] [phone] Fibromyalgia; Moderate episode of recurrent major depressive disorder (HCC); Primary osteoarthritis of both knees; Restless legs syndrome Allergies Active Allergy Reactions [...] 3 08/30/2018 Active Blood Glucose Monitoring Suppl ([employer] ULTRA 2) w/Device KIT Use to test [...] long-term current use of insulin ([facility]) Inject 1.5 mg under the skin once a week. 15 mL 3 12/18/2019 Active Nortriptyline HCl (PAMELOR) 50 MG CapsuleIndications: Fibromyalgia Take 1 Cap by mouth at bedtime. 90 Cap 3 12/18/2019 Active gabapentin (NEURONTIN) 300 MG CapsuleIndications: Type 2 diabetes mellitus with hemoglobin A1c goal of 7.0%-8.0% ([facility]) Take 1 Cap by mouth 3 [...] at bedtime. 90 Tab 3 03/13/2020 Active DULoxetine (CYMBALTA) 60 MG [...] 10/14/2014 Overview: ICD-10 update of inactive term [place] filter in place 08/19/2014 History of pulmonary [...] Notes * Telephone Encounter - Betsey Lindsey, [facility] - 03/13/2020 3:12 PM EDT Signed Prescriptions: Disp Refills DULoxetine (CYMBALTA) 30 MG CPEP 90 Cap 3 Sig: Take 1 Cap by mouth daily. Take along with the 60mg dose for totally of 90mg daily. Do not cut, crush or chew Authorizing Provider: MIGUE WHITESIDE Ordering User: BETSEY ALARCON DULoxetine (CYMBALTA) 60 MG CPEP 90 Cap 3 Sig: Take 1 Cap by mouth daily. Along with 30 mg capsule to total 90 mg daily. Authorizing Provider: MIGUE WHITESIDE Ordering User: BETSEY ALARCON rOPINIRole (REQUIP) 2 MG Tablet 90 Tab 3 Sig: Take 1 Tab by mouth at bedtime. Authorizing Provider: MIGUE WHITESIDE Ordering User: BETSEY ALARCON * Telephone Encounter - Mary Melgar, project program manager - 03/12/2020 3:38 PM EDT Please reroute RX to [facility] [id number] Pending Prescriptions: Disp Refills DULoxetine (CYMBALTA) 30 MG CPEP 90 Cap 3 Sig: Take 1 Cap by mouth daily. Take along with the 60mg dose for totally of 90mg daily. Do not cut, crush or chew DULoxetine (CYMBALTA) 60 MG CPEP 90 Cap 3 Sig: Take 1 Cap by mouth daily. Along with 30 mg capsule to total 90 mg daily. rOPINIRole (REQUIP) 2 MG Tablet 90 Tab 3 Sig: Take 1 Tab by mouth at bedtime. Last Office/Telemedicine Visit: 02/25/2020 Next Office Visit: 03/13/2020 Scheduled Provider(s): Angi Barr PA-C If no future appointments scheduled, and last appointment is greater than a year ago, please schedule patient for a follow-up appointment Last date the medication was ordered:12/18/2019 Patient Phone Numbers Labs: Lab Results Component [...] Linda Wilkinson RN [address] [place] [address] [phone] 03/19/2020 Office Visit Pharmacy [facility] Jeramie [address] [place] [address] 03/24/2020 Home Visit Family Medicine Mira Duong, [facility] [employer] [place] [address] [phone] 04/15/2020 [facility] Visit [facility] Brooke Jose RN [address] [place] [address] [phone] 05/08/2020 Office Visit Family Medicine Migue Whiteside DO [address] [place] [address] [phone] 05/28/2020 Office Visit Cardiology Marjorie Powell PA-C [address] [place] [address] [phone] 06/03/2020 Office Visit Dermatology Apple Kaminski MD [address] [place] [address], [place] [address] [phone] 07/10/2020 Office Visit Orthopedics Betsey Teague DO [address] [place] [address] [phone] 07/11/2020 Imaging Radiology 11/27/2020 Office Visit Pulmonary Celsa Tafoya CRNP [address] [place] [address] [phone] Health Maintenance Due Date Last Done Comments [...] both knees Primary localized osteoarthrosis, lower leg Restless legs syndrome Restless legs syndrome (RLS) documented in this encounter Advance Directives Documents on File Type Date Recorded Patient Tire Stripper Expl 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
--- OUTSIDE RECORDS SUMMARY | 2023-06-01 05:24 | External Medical Summary | Summary of Care ---
Author Name Unknown Organization [place] [address] Care Team Providers Care Corporate Development Manager Name Role Phone Stevo Kevin Ocampomelinda Primary Care Provider Reason for Visit * Reason Comments [facility]: Maintenance 48 hr f/u Encounter Details Date Type Department Care Team Description 03/14/2020 Scheduled Telephone [facility], [facility] [address] [address] Brooke Jose, RN [address] [place] [place] [address] [phone] Benign hypertensive heart and kidney disease with [...] 3 08/30/2018 Active Blood Glucose Monitoring Suppl ([employer] ULTRA 2) w/Device KIT Use to test [...] insulin ([facility]) Inject 1.5 mg under the skin [...] 10/14/2014 Overview: ICD-10 update of inactive term [place] filter in place 08/19/2014 History of pulmonary [...] States mag was low-normal at ER visit [place] better after she rec'd mag Realized that she had not been taking her daily mag dose but is taking again as prescribed Taking dicyclomine prn Had bm today Generalized pain today / which is ''normal day'' for her Taking apap but is out of tramadol Will forward message to PCP for request for refill Agreed to call [facility] with concerns documented in this encounter Plan of Treatment Upcoming Encounters Date Type Specialty Care Team Description 03/15/2020 Scheduled Telephone [facility] Linda Wilkinson RN [address] [place] [address] [phone] 03/19/2020 Office Visit Pharmacy [facility] Jreamie [address] [place] [address] 03/24/2020 Home Visit Family Medicine Mira Duong, [facility] [address] [place] [address] [phone] 04/15/2020 Home Visit [facility] Brooke Jose RN [address] [facility] [place] [address] [phone] 05/08/2020 Office Visit Family Medicine Kevin Whiteside, DO [address] [place] [address] [phone] 05/28/2020 Office Visit Cardiology Marjorie Powell PA-C [facility] [place] [address] [phone] 06/03/2020 Office Visit Dermatology Apple Kaminski MD [address] [facility] [place] [address] [phone] 07/10/2020 Office Visit Orthopedics Zack Teague, DO [address] [place] [id number] 07/11/2020 Imaging Radiology 11/27/2020 Office Visit Pulmonary Celsa Tafoya CRNP [address] [facility] [place] [address] [phone] Health Maintenance Due Date Last Done Comments [...] Documents on File Type Date Recorded Patient Pediatrician/Medical Doctor Expl 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
--- OUTSIDE RECORDS SUMMARY | 2023-06-01 05:24 | External Medical Summary | Summary of Care ---
Author Name Unknown Organization [place] [address] Care Team Providers Care Net Trainer Name Role Phone Sergey Whitesidevor Lisa Primary Care Provider Encounter Details Date Type Department Care Team Description 03/13/2020 Scan Encounter Unspecified Department <No scans attached> [...] of insulin ([facility]) Inject 1.5 mg under the [...] 10/14/2014 Overview: ICD-10 update of inactive term [place] filter in place 08/19/2014 History of pulmonary [...] 03/15/2020 Scheduled Telephone [facility] Linda Wilkinson, RN [address] [place] [address] [phone] 03/19/2020 Office Visit Pharmacy [facility] Jeramie [address] [place] [address] 03/24/2020 Home Visit Family Medicine Mira Duong, [facility] Dance Critic [address] [place] [address] 04/15/2020 Home Visit [facility] Brooke Jose RN [address] [place] [address] [phone] 05/08/2020 Office Visit Family Medicine Kevin Whiteside DO [address] [place] [address] [phone] 05/28/2020 Office Visit Cardiology Marjorie Powell PA-C [address] [place] [address] [phone] 06/03/2020 Office Visit Dermatology Apple Kaminski MD [address] [place] [address], [place] [address] [phone] 07/10/2020 Office Visit Orthopedics Zack Teague DO [address] [place] [address] [phone] 07/11/2020 Imaging Radiology 11/27/2020 Office Visit Pulmonary Celsa Tafoya CRNP [address] [place] [address] [phone] Health Maintenance Due Date Last Done Comments [...] Documents on File Type Date Recorded Patient Meter Shop Supervisor Expl 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
--- OUTSIDE RECORDS SUMMARY | 2023-06-01 05:24 | External Medical Summary | Summary of Care ---
Author Name Unknown Organization [place] [address] Care Team Providers Care Team Sports Sales Associate Name Role Phone Stevo Kevin Ocampomelinda Primary Care Provider Reason for Visit * Reason Comments [facility]: Maintenance 48 hr f/u Encounter Details Date Type Department Care Team Description 03/14/2020 Scheduled Telephone [facility], [facility] [address] [facility] [place] [address] Brooke Jose, RN [address] [facility] [place] [address] [phone] Benign hypertensive heart and kidney disease with [...] 3 08/30/2018 Active Blood Glucose Monitoring Suppl ([employer] ULTRA 2) w/Device KIT Use to test [...] goal of 7.0%-8.0% ([facility]) Take 1 Cap by mouth 3 [...] States mag was low-normal at ER visit [place] better after she rec'd mag Realized that she had not been taking her daily mag dose but is taking again as prescribed Taking dicyclomine prn Had bm today Generalized pain today 3/10 which is ''normal day'' for her Taking apap but is out of tramadol Will forward message to PCP for request for refill Agreed to call [facility] with concerns documented in this encounter Plan of Treatment Upcoming Encounters Date Type Specialty Care Team Description 03/24/2020 Home Visit Family Medicine Mira Duong, [facility] Pusher Runner [address] [place] [address] 04/15/2020 Home Visit [facility] Brooke Jose, RN [address] [facility] [place] [address] [phone] 05/08/2020 Office Visit Family Medicine Kevin Whiteside, DO [address] [place] [address] [phone] 05/28/2020 Office Visit Cardiology Marjorie Powell PA-C [facility] [place] [address] [phone] 06/03/2020 Office Visit Dermatology Apple Kaminski MD [address] [place] [address], [place] [address] [phone] 06/25/2020 Office Visit Pharmacy [facility] Jeramie [address] [facility] [place] [address] 07/10/2020 Office Visit Orthopedics Zack Teague, DO [address] [facility] [place] [address] [phone] 07/11/2020 Imaging Radiology 11/27/2020 Office Visit Pulmonary Celsa Tafoya CRNP [address] [facility] [place] [address] [phone] Health Maintenance Due Date Last Done Comments [...] on File Type Date Recorded Patient Corporate Aircraft Mechanic Expl 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
--- OUTSIDE RECORDS SUMMARY | 2023-06-01 05:25 | External Medical Summary | Summary of Care ---
Author Name Unknown Organization [place] [address] Care Team Providers Care Flute Grinder Name Role Phone Kevin Whiteside DO Primary Care Provider Reason for Visit * Reason Comments [facility]: Acute Encounter Details Date Type Department Care Team Description 03/12/2020 Telephone [facility], [facility] [address] [facility] [place] [address] [facility] Nurse [facility] [address] [place] [address] [phone] [facility]: Acute Allergies Active Allergy Reactions Severity Noted Date Comments Pollen 05/18/2019 Heparin 09/04/2009 Heparin Induced Thrombocytopenia Empagliflozin Other (Please comment) Medium 05/17/2018 3 yeast infections in 6 weeks after starting Morphine And Related 09/16/1997 Hallucinations Tetanus Toxoid Other (Please comment) 06/15/2011 Passed out documented as of this encounter (statuses as of 03/12/2020) Medications Medication Sig Dispensed Refills Start Date [...] 3 08/30/2018 Active Blood Glucose Monitoring Suppl ([employer] ULTRA 2) w/Device KIT Use to test [...] current use of insulin ([facility]) Inject 1.5 mg under the skin once a week. 15 mL 3 12/18/2019 Active Nortriptyline HCl (PAMELOR) 50 MG CapsuleIndications:F ibromyalgia Take 1 Cap by mouth at bedtime. 90 Cap 3 12/18/2019 Active gabapentin (NEURONTIN) 300 MG CapsuleIndications:T ype 2 diabetes mellitus with hemoglobin A1c goal of 7.0%-8.0% ([facility]) Take 1 Cap by mouth 3 times a day. 270 Cap 3 12/18/2019 Active DULoxetine (CYMBALTA) 60 MG CPEPIndications:Fibr omyalgia,Moderate episode of recurrent major depressive disorder ([facility]),Primary osteoarthritis of both knees Take 1 Cap by mouth daily. Along with 30 mg capsule to total 90 mg daily. 90 Cap 3 12/18/2019 Active insulin aspart (INSULIN ASPART) 100 UNIT/ML injection USE IN INSULIN PUMP UP TO 200 UNITS PER DAY 90 mL 3 12/18/2019 Active levothyroxine (LEVOXYL) 200 MCG TabletIndications:Po stsurgical hypothyroidism TAKE ONE TABLET BY MOUTH EVERY DAY AT LEAST 30 MINUTES BEFORE BREAKFAST OR OTHER MEDS 90 Tab 3 12/18/2019 Active DULoxetine (CYMBALTA) 30 MG CPEP Take 1 Cap by mouth daily. Take along with the 60mg dose for totally of 90mg daily. Do not cut, crush or chew 90 Cap 3 12/18/2019 Active Magnesium Oxide 400 (241.3 mg) Tablet Take 400 mg by mouth daily. 90 Tab 3 12/18/2019 Active Glucose Blood ([employer] ULTRA BLUE) STRP Check sugars 3-4 times daily 400 Strip 3 12/18/2019 Active traZODone (DESYREL) 50 MG Tablet Take 1 Tab by mouth at bedtime. 90 Tab 3 12/18/2019 Active rOPINIRole (REQUIP) 2 MG TabletIndications:Re stless legs syndrome Take 1 Tab by mouth at bedtime. 90 Tab 3 12/18/2019 Active metoprolol tartrate (LOPRESSOR) 25 MG TabletIndications:HT N, goal below 130/80,Acute diastolic congestive heart failure (HCC),Body mass index (BMI) of 50.0 to 59.9 in adult (HCC),Hypoxemia,ELISSA (obstructive sleep apnea),HTN, goal below 140/80 Take 0.5 Tabs by mouth 2 times a day. 90 Tab 3 12/18/2019 Active omeprazole (PRILOSEC) 20 MG CPDR Take 1 Cap by mouth daily. 90 Cap 3 12/18/2019 Active insulin aspart (INSULIN ASPART) 100 UNIT/ML injection NOVOLOG Vial- USE IN INSULIN PUMP UP TO 200 UNITS PER DAY 10 mL 0 01/17/2020 Active traMADol (ULTRAM) 50 MG TabletIndications:Ch ronic pain syndrome TAKE ONE TABLET BY MOUTH EVERY EIGHT HOURS NEEDED FOR SEVERE PAIN 90 Tab 0 01/29/2020 Active colchicine 0.6 MG TabletIndications:Le ukocytoclastic vasculitis [...] TWICE DAILY 60 Tab 0 03/04/2020 Active documented as of this encounter (statuses as of 03/12/2020) Active Problems Problem Noted Date Uncontrolled type [...] 76%, time <89% 6:21 hours, TINY [facility] Postsurgical hypothyroidism 06/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 documented as of this encounter (statuses as of 03/12/2020) Resolved Problems Problem Noted Date Resolved Date [...] as of this encounter (statuses as of 03/12/2020) Immunizations Name Administration Dates Next Due Pneumococcal [...] have Coronavirus / COVID-19? No / Unsure 03/12/2020 7:35 AM EDT documented as of this encounter Miscellaneous Notes * Telephone Encounter - Chrystal Mooney RN - 03/12/2020 8:22 AM EDT 24 hour follow up PC added to schedule due to pt seeing PA in PCP office 03/13. 48 hour follow up with RNCM on 03/14/2020. [facility] Intake * Telephone Encounter - Anel Miranda CRNP - 03/12/2020 8:20 AM EDT Noted home visit scheduled for today. TATIANA Menendez * Telephone Encounter - Chrystal Mooney RN - 03/12/2020 8:13 AM EDT [facility] Acute Call Date: 03/12/2020 Time: 8:13 AM Name: Stephanie Camp : 1955 Caller: Intake to pt Relationship to No chief complaint on file. HPI: Stephanie Camp is a 64 year old old female that is calling [facility] to report call from over night triage. ROS: Denies fever. Nausea, no vomiting. Per note-abd cramping. States diarrhea. States burning with urination. States BS have been pretty good. States is able to drink fluids. Denies taking any medications for nausea or diarrhea. States gets constipated from anti diarrheals. Nursing Assessment: Patient's chief complaint for this call: See above Pain See above Baseline Assessment Able to performing ADLs at baseline (walking, daily tasks, etc.): Unknown Chief Complaint is related to a chronic condition: Unknown Patient prescribed oxygen? No Patient has been ordered DME equipment (assistive devices, respiratory equipment, etc.): Unknown Medication Reconciliation: (See medication list) Received flu shot this season: Yes Taking medication as ordered: Unknown Medications ordered/taking to treat reason for call: No Heart failure symptoms: Unknown COPD exacerbation symptoms: Unknown Reinforcement Education: Safety. Encouraged rest. Encouraged clear fluids and to stay hydrated. Advance as tolerated to BRATdiet, small freq meals. Aware GEOMORPHOLOGY TEACHER will see pt today. Treatment/Plan: (need to report) Level of call: Acute Appointment scheduled for same day: Yes Advanced Practitioner Provider Name: Homero Miranda Treatment plan until appointment: See above Chrystal Mooney RN [facility] Intake Chart to RNTATIANA, PCP, [facility]. Call back instructions provided to patient. documented in this encounter Plan of Treatment Upcoming Encounters Date Type Specialty Care Team Description 03/12/2020 Home Visit [facility] Claudia Miranda CRNP [address] [place] [address] [phone] 03/13/2020 Scheduled Telephone [facility] Brooke Jose RN [address] [place] [address] [phone] 03/13/2020 Office Visit Family Medicine Angi Barr PA-C [address] [place] [address] [phone] 03/14/2020 Home Visit [facility] Brooke Jose RN [address] [place] [address] [phone] 03/19/2020 Office Visit Pharmacy [facility] Moe Bobo [address] [place] [address] 03/24/2020 Home Visit Family Medicine Mira Duong, [facility] Alarm Mechanic [address] [place] [address] [phone] 04/15/2020 Home Visit [facility] Brooke Jose, RN 132 [facility] [place] [address] [phone] 05/08/2020 Office Visit Family Medicine Kevin Whiteside, DO [address] [place] [address] [phone] 05/28/2020 Office Visit Cardiology Marjorie Powell PA-C [address] [place] [address] [phone] 06/03/2020 Office Visit Dermatology Apple Kaminski MD [address] [place] [address], [place] [address] [phone] 07/10/2020 Office Visit Orthopedics Zack Teague, DO 132 [facility] [place] [address] 07/11/2020 Imaging Radiology 11/27/2020 Office Visit Pulmonary Celsa Tafoya CRNP 132 [facility] [place] [address] Health Maintenance [...] on File Type Date Recorded Patient Drier And Grinder Tender Expl 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
--- OUTSIDE RECORDS SUMMARY | 2023-06-01 05:25 | External Medical Summary | Summary of Care ---
Author Name Unknown Organization [place] [address] Care Team Providers Care Roller Man Name Role Phone Kevin Whiteside DO Primary Care Provider Reason for Visit * Reason Comments [facility]: Acute Encounter Details Date Type Department Care Team Description 03/12/2020 [facility] Visit 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, NYHA class 1 and CKD stage 3 ([facility]); HTN, goal below 130/80; Nocturnal hypoxemia; Chronic respiratory failure with hypoxia ([facility]); Uncontrolled type 2 diabetes mellitus with stage 4 chronic kidney disease, with long-term current use of insulin ([facility]); Fibromyalgia; Restless legs syndrome; Primary osteoarthritis of left knee; Abnormality of gait; Diarrhea, unspecified type; Lower abdominal pain Allergies Active Allergy Reactions Severity Noted Date [...] of insulin ([facility]) Inject 1.5 mg under the skin [...] 90 Tab 3 12/18/2019 Active Glucose Blood (YourListen.comTOUCH ULTRA BLUE) STRP Check sugars 3-4 times [...] days. 10 Tab 0 03/12/2020 0 Active documented as of this encounter [...] 10/14/2014 Overview: ICD-10 update of inactive term Jay filter in place 08/19/2014 History of pulmonary [...] Coronavirus / COVID-19? No / Unsure 03/12/2020 12:38 PM EDT documented as of this encounter Last Filed Vital Signs Vital Sign Reading Time Taken Comments Blood Pressure 120/65 03/12/2020 12:38 PM EDT Pulse 65 03/12/2020 12:38 PM EDT Temperature 36.1 C (97 F) 03/12/2020 12:38 PM EDT Respiratory Rate 20 03/12/2020 12:38 PM EDT Oxygen Saturation 97% 03/12/2020 12:38 PM EDT Inhaled Oxygen Concentration - - Weight - - Height - - Body Mass Index - - documented in this encounter Progress Notes * Claudia Miranda CRNP - 03/12/2020 9:35 AM EDT [facility] Provider Visit Date: 03/12/2020 Time: 9:35 AM HPI: Stephanie Camp is a 64 year old female seen in her home for a provider visit. She being seen today for abdominal pain/diarrhea. Pt tells me that this started on Tuesday with abdominal pain and diarrhea, pt says normal when this occurs only last about 24 hours and goes away by Tuesday the pain was so severe I her lower abdomen that she could barely walk so she had a friend take her to the ER at [place], her ct scan showed no evidence of diverticulitis but possible ileus recall pt has hx of diverticulitis with perforation resulting in colostomy which has been reversed. Urinalysis was check and culture negative which were negative she tells me that the pain has never really went away. She also was having an overall general fatigue feeling He last BM was yesterday, she denies any black tarry stools no offensive odor, does not recall hx of cdiff she tells me that she started to take AZO on her own so her urine is orange but no odor, shetells me that she gets itchy in her vaginal area but this is not new for her. She is eating but tells me that about an hour after she eats she can feel discomfort in her abdomen, She is not nauseatedand no vomiting, denies any fever or chills, at this time She also tells me that she has been out of clonazepam for about a week now and a has been out of her cymbalta 30mg for about a week. She just restarted the clonazepam yesterday in which she takes .5mg twice daily. She is due to follow up from her ER visit tomorrow with her PCP Ref Range & Units 5d ago BUN 6 - 20 mg/dL 30High CREATININE 0.5 - 1.0 mg/dL 1.7High E GLOM FILT RATE >60 31.8Low Comment: If patient is , multiply estimated GFR by 1.159. SODIUM 135 - 146 mmol/L 140 POTASSIUM 3.5 - 5.1 mmol/L 3.7 CHLORIDE 98 - 107 mmol/L 94Low CO2 22 - 32 mmol/L 32 ANION GAP 7 - 15 mmol/L 14 GLUCOSE 70 - 120 mg/dL 155High CALCIUM 8.4 - 10.2 mg/dL 9.6 Resulting Agency [id number] Specimen Collected: 03/07/20 11:48 AM Last Resulted: 03/07/20 1:25 PM ROS: Review of Systems Constitutional: Positive for fatigue. Negative for activity change, appetite change and fever. Respiratory: Negative for cough and chest tightness. Cardiovascular: Positive for leg swelling. Negative for chest pain and palpitations. Gastrointestinal: Positive for abdominal pain and diarrhea. Negative for abdominal distention, nausea and vomiting. Genitourinary: Positive for dysuria. Negative for flank pain and hematuria. Musculoskeletal: Positive for arthralgias. Negative for back pain. Physical Exam: BP 120/65 | Pulse 65 | Temp 97 | Resp 20 | SaO2 97% | LMP 03/11/2003 Physical Exam Constitutional: Appearance: She is obese. Cardiovascular: Rate and Rhythm: Normal rate and regular rhythm. Heart sounds: No murmur. Pulmonary: Effort: Pulmonary effort is normal. Breath sounds: Normal breath sounds. Abdominal: General: Bowel sounds are normal. Tenderness: There is abdominal tenderness. There is guarding. Comments: Light palpation guarding in left lower quadrant with minimal guarding in lower abdomen Skin: General: Skin is warm and dry. Neurological: Mental Status: She is alert and oriented to person, place, and time. Assessment/Plan: 1. Frank filter in place History of PE 2. 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 Nocturnal hypoxemia Oxygen therapy 5. Chronic respiratory failure with hypoxia ([facility]) Continue 6. Uncontrolled type 2 diabetes mellitus with stage 4 chronic kidney disease, with long-term current use of insulin ([facility]) Dietary discretion contiue with insulin therapy 7. Fibromyalgia Continue with cymbalta therapy 8. Restless legs syndrome Continue with light exercise regime and ropinorole 9. Primary osteoarthritis of left knee Pt is prescribed tramadol that is used as needed 10. Abnormality of gait Uses of walker as needed 11. Diarrhea, unspecified type Hold on her colace dose at night time, encourage fluids, 12. Lower abdominal pain Obtain [facility] ER report, will send in cipro 500mg po every 12 for 5 days, pt was educated on the medications and SE of the medications, Her abdominal pain may also be intesified by the fact she stoppedthe clonazepam abruptly and a abrupt decrease in cymbalta about a week ago as mentioned in HPI, just restarted the clonazepam yesterday. Ct scan also showed possible ileus, I have advised the pt to take it easy today and try to push soft to clear liquids to see if the pain improves as well, it continued may have to do repeat study Pt was educated that she should call with any change or worsening of symptoms to [facility], pt was agreeable and thankful for the visit she will be seen by PCP tomorrow. As this was an already schduled PCPvisit for ER Home Interventions Provided: Oral Medications: TATIANA Chavez documented in this encounter Plan of Treatment Upcoming Encounters Date Type Specialty Care Team Description 03/13/2020 Scheduled Telephone [facility] Brooke Jose RN [address] [place] [address] [phone] 03/13/2020 Office Visit Family Medicine Angi Barr PA-C [address] [place] [address] [phone] 03/14/2020 Home Visit [facility] Brooke Jose RN [address] [place] [address] [phone] 03/19/2020 Office Visit Pharmacy [facility] [address] [place] [address] 03/24/2020 Home Visit Family Medicine Mira Duong, Community Health Pm Technician [address] [place] [address] [phone] 04/15/2020 Home Visit [facility] Brooke Jose RN [address] [place] [address] [phone] 05/08/2020 Office Visit Family Medicine Kevin Whiteside DO [address] [place] [address] [phone] 05/28/2020 Office Visit Cardiology Marjorie Powell PA-C [address] [place] [address] [phone] 06/03/2020 Office Visit Dermatology Apple Kaminski MD [address] [place] [address], [place] [address] [phone] 07/10/2020 Office Visit Orthopedics Zack Teague DO [address] [place] [address] [phone] 07/11/2020 Imaging Radiology 11/27/2020 Office Visit Pulmonary Celsa Tafoya CRNP [address] [place] [address] [phone] Health Maintenance Due Date Last Done Comments [...] as of this encounter Visit Diagnoses Diagnosis Jay filter in place- Primary Other postprocedural status 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, NYHA class 1 and CKD stage 3 (HCC) HTN, goal below 130/80 Unspecified essential hypertension Nocturnal hypoxemia Hypoxemia Chronic respiratory failure with hypoxia (HCC) Chronic respiratory failure Uncontrolled type 2 diabetes mellitus with stage 4 chronic kidney disease, with long-term current use of insulin (HCC) Fibromyalgia Mylagia and myositis, unspecified Restless legs syndrome Restless legs syndrome (RLS) Primary osteoarthritis of left knee Primary localized osteoarthrosis, lower leg Abnormality of gait Diarrhea, unspecified type Lower abdominal pain Abdominal pain, other specified site documented in this encounter Advance Directives Documents on File Type Date Recorded Patient Bond Broker Expl 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
--- OUTSIDE RECORDS SUMMARY | 2023-06-01 05:25 | External Medical Summary | Summary of Care ---
Author Name Unknown Organization [place] [address] Care Team Providers Care Insurance Defense Attorney Name Role Phone Kevin Whiteside DO Primary Care Provider Reason for Visit * Reason Comments Emergency Department Follow-Up Encounter Details Date Type Department Care Team Description 03/11/2020 Telephone Family Practice [facility] [address] [facility] [place] [address] Kevin Whiteside DO [address] [facility] [place] [address] Emergency Department Follow-Up Allergies Active Allergy Reactions Severity Noted Date Comments Pollen 05/18/2019 Heparin 09/04/2009 Heparin Induced Thrombocytopenia Empagliflozin Other (Please comment) Medium 05/17/2018 3 yeast infections in 6 weeks after starting Morphine And Related 09/16/1997 Hallucinations Tetanus Toxoid Other (Please comment) 06/15/2011 Passed out documented as of this encounter (statuses as of 03/11/2020) Medications Medication Sig Dispensed Refills Start Date [...] 3 08/30/2018 Active Blood Glucose Monitoring Suppl (White CastleUCH ULTRA 2) w/Device KIT Use to test [...] 2 nursing care encounter ([facility]),Uncontrolled type 2 diabetes mellitus with stage 3 chronic kidney disease, with long-term current use of insulin ([facility]) Inject 1.5 mg under the skin once a week. 15 mL 3 12/18/2019 Active Nortriptyline HCl (PAMELOR) 50 MG CapsuleIndications:F ibromyalgia Take 1 Cap by mouth at bedtime. 90 Cap 3 12/18/2019 Active gabapentin (NEURONTIN) 300 MG CapsuleIndications:T ype 2 diabetes mellitus with hemoglobin A1c goal of 7.0%-8.0% ([facility]) Take 1 Cap by mouth 3 times a day. 270 Cap 3 12/18/2019 Active DULoxetine (CYMBALTA) 60 MG CPEPIndications:Fibr omyalgia,Moderate episode of recurrent major depressive disorder (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 documented as of this encounter (statuses as of 03/11/2020) Resolved Problems Problem Noted Date Resolved Date [...] as of this encounter (statuses as of 03/11/2020) Immunizations Name Administration Dates Next Due Pneumococcal [...] have Coronavirus / COVID-19? No / Unsure 03/07/2020 10:37 AM EDT documented as of this encounter Miscellaneous Notes * Telephone Encounter - Migdalia Whiteside OSA - 03/11/2020 8:54 AM EDT appt scheduled with pt * Telephone Encounter - Jennifer Gann LPN - 03/11/2020 8:47 AM EDT Please schedule appointment for an ER follow up * Telephone Encounter - Kriss Jaimes OSA - 03/11/2020 8:28 AM EDT Patient was seen in ED. Please see call details. documented in this encounter Plan of Treatment Upcoming Encounters Date Type Specialty Care Team Description 03/13/2020 Office Visit Family Medicine Angi Barr, PAMyraC [address] [place] [address] [phone] 03/19/2020 Office Visit Pharmacy [facility] Jeramie [address] [place] [address] 03/24/2020 Home Visit Family Medicine Mira Duong, Community Health Md [facility] [address] [place] [address] [phone] 04/15/2020 Home Visit [facility] Brooke Jose, RN [address] [place] [address] [phone] 05/08/2020 Office Visit Family Medicine Kevin Whiteside DO [address] [place] [address] [phone] 05/28/2020 Office Visit Cardiology Marjorie Powell PA-C [facility] [place] [address] 06/03/2020 Office Visit Dermatology Apple Kaminski MD [address] [facility] [address] 07/10/2020 Office Visit Orthopedics Zack Teague DO 132 [facility] [place] [address] 07/11/2020 Imaging Radiology [...] Documents on File Type Date Recorded Patient Roving Changer Expl 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
--- OUTSIDE RECORDS SUMMARY | 2023-06-01 05:25 | External Medical Summary | Summary of Care ---
Author Name Unknown Organization [place] [address] Care Team Providers Care Agronomy Teacher Name Role Phone Kevin Whiteside DO Primary Care Provider Reason for Visit * Reason Comments [facility]: Acute Encounter Details Date Type Department Care Team Description 03/12/2020 Telephone [facility], [facility] [address] [facility] [place] [address] [facility] Nurse [facility] 132 [place] [address] [phone] [facility]: Acute Allergies Active Allergy [...] 3 08/30/2018 Active Blood Glucose Monitoring Suppl (KrowdPad ULTRA 2) w/Device KIT Use to test [...] current use of insulin ([facility]) Inject 1.5 mg under the skin once a week. 15 mL 3 12/18/2019 Active Nortriptyline HCl (PAMELOR) 50 MG CapsuleIndications:F ibromyalgia Take 1 Cap by mouth at bedtime. 90 Cap 3 12/18/2019 Active gabapentin (NEURONTIN) 300 MG CapsuleIndications:T ype 2 diabetes mellitus with hemoglobin A1c goal of 7.0%-8.0% ([facility]) Take 1 Cap by mouth 3 times a day. 270 Cap 3 12/18/2019 Active DULoxetine (CYMBALTA) 60 MG CPEPIndications:Fibr omyalgia,Moderate episode of recurrent major depressive disorder ([facility]),Primary osteoarthritis of both knees Take 1 Cap [...] 76%, time <89% 6:21 hours, TINY [address] [facility] Postsurgical hypothyroidism 06/16/2011 ELLIE (generalized anxiety [...] 03/12/2020 8:13 AM EDT [facility] art gallery director Acute Call Date: 03/12/2020 Time: 8:13 AM [...] tolerated to BRATdiet, small freq meals. Aware ELEMENTARY MATH TUTOR will see pt today. Treatment/Plan: (need to [...] Home Claudia Miranda CRNP [address] [place] [address] [phone] 03/13/2020 Scheduled Telephone [facility] Brooke Jose RN [address] [place] [address] [phone] 03/13/2020 Office Visit Family Medicine Angi Barr PA-C [address] [place] [address] [phone] 03/14/2020 Home Visit [facility] Brooke Jose RN [address] [place] [address] [phone] 03/19/2020 Office Visit Pharmacy [facility] Moe Bobo [address] [place] [address] 03/24/2020 Home Visit Family Medicine Mira Duong, Community Health Director Institution [address] [place] [address] [phone] 04/15/2020 Home Visit [facility] Brooke Jose, RN [address] [facility] [place] [address] [phone] 05/08/2020 Office Visit Family Medicine Kevin Whiteside, DO [address] [place] [address] [phone] 05/28/2020 Office Visit Cardiology Marjorie Powell PA-C [address] [place] [address] [phone] 06/03/2020 Office Visit Dermatology Apple Kaminski MD [address] [place] [address], [place] [address] [phone] 07/10/2020 Office Visit Orthopedics Zack Teague, DO 132 [facility] [place] [address] 07/11/2020 Imaging Radiology 11/27/2020 Office Visit Pulmonary Celsa Tafoya CRNP [address] [facility] [place] [address] Health Maintenance Due Date [...] Documents on File Type Date Recorded Patient Coroner/Medical Examiner Expl 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
--- OUTSIDE RECORDS SUMMARY | 2023-06-01 05:25 | External Medical Summary | Summary of Care ---
Author Name Unknown Organization [place] [address] Care Team Providers Care Acquisition Cost Estimator Name Role Phone Carey Whitesidelidia Ocampomelinda Primary Care Provider Reason for Visit * Reason Comments [facility]: Acute f/u pain Encounter Details Date Type Department Care Team Description 03/13/2020 Scheduled Telephone [facility], [facility] [address] [facility] [place] [address] Brooke Jose, RN [address] [place] [address] [phone] Allergies Active Allergy Reactions Severity Noted Date [...] 3 08/30/2018 Active Blood Glucose Monitoring Suppl (disco volante ULTRA 2) w/Device KIT Use to test [...] use of insulin ([facility]) Inject 1.5 mg under [...] omyalgia,Moderate episode of recurrent major depressive disorder ([facility]),Primary osteoarthritis of both knees Take [...] Miscellaneous Notes * Telephone Encounter - Rema Gutierrez OSA - 03/13/2020 10:34 AM EDT Patient scheduled with PCP today F/u calls scheduled for 03/14 and 03/15 * Telephone Encounter - Brooke Jose RN - 03/13/2020 9:23 AM EDT rec'd TT from Chrystal Mooney RN Intake nurse that pt called in again last night T/c to pt "I just got home from the ER. My magnesium was low.'' States had severe pain ''all over'' and is better now. Plans to keep apt with PCP office as scheduled today. Encouraged to attend apt. Will f/u with t/c to pt tomorrow and Tuesday documented in this encounter Plan of Treatment Upcoming Encounters Date Type Specialty Care Team Description 03/13/2020 Office Visit Family Medicine Angi Barr PA-C [address] [place] [address] [phone] 03/14/2020 Home Visit [facility] Brooke Jose RN [address] [place] [address] [phone] 03/15/2020 Scheduled Telephone [facility] Linda Wilkinson RN [address] [place] [address] [phone] 03/19/[address] [facility] [address] 03/24/2020 Home Visit Family Medicine Mira Duong, Community Health Pipe Welder [address] [place] [address] [phone] 04/15/2020 Home Visit [facility] Brooke Jose, LEXI [address] [facility] [place] [address] [phone] 05/08/2020 Office Visit Family Medicine Kevin Whiteside, 132 [facility] [place] [address] [phone] 05/28/2020 Office Visit Cardiology Marjorie Powell PA-C [address] [place] [address] [phone] 06/03/2020 Office Visit Dermatology Apple Kaminski MD [address] [facility] [address] [phone] 07/10/2020 Office Visit Orthopedics Zack Teague, [facility] [address] [phone] 07/11/2020 Imaging Radiology 11/27/2020 Office Visit Pulmonary Celsa Tafoya CRNP [facility] [address] [phone] Health Maintenance Due Date Last Done Comments [...] Documents on File Type Date Recorded Patient Airport Clerk Expl 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
--- OUTSIDE RECORDS SUMMARY | 2023-06-01 05:25 | External Medical Summary | Summary of Care ---
Author Name Unknown Organization [place] [address] Care Team Providers Care Pan Pusher Name Role Phone Migue Whiteside DO Primary Care Provider Reason for Visit * Reason Comments Medication Refill Encounter Details Date Type Department Care Team Description 03/12/2020 Refill Family Practice [facility] [address] [place] [id number] Migue Whiteside DO [address] [facility] [place] [address] [phone] Fibromyalgia; Moderate episode of recurrent major depressive [...] 3 08/30/2018 Active Blood Glucose Monitoring Suppl ([employer] Medical ULTRA 2) w/Device KIT Use to [...] of insulin ([facility]) Inject 1.5 mg under the skin once a week. 15 mL 3 12/18/2019 Active Nortriptyline HCl (PAMELOR) 50 MG CapsuleIndications: Fibromyalgia Take 1 Cap by mouth at bedtime. 90 Cap 3 12/18/2019 Active gabapentin (NEURONTIN) 300 MG CapsuleIndications: Type 2 diabetes mellitus with hemoglobin A1c goal of 7.0%-8.0% ([facility]) Take 1 Cap by mouth 3 [...] 12/18/2019 Active metoprolol tartrate (LOPRESSOR) 25 MG TabletIndications:H [...] 10/14/2014 Overview: ICD-10 update of inactive term Majestic filter in place 08/19/2014 History of pulmonary [...] Notes * Telephone Encounter - Betsey Lindsey, [facility] - 03/13/2020 3:12 PM EDT Signed Prescriptions: [...] ALARCON * Telephone Encounter - Mary Melgar, drill foreman - 03/12/2020 3:38 PM EDT Please reroute RX to [id number] Pending Prescriptions: Disp Refills DULoxetine (CYMBALTA) [...] Description 03/14/2020 Home Visit [facility] Boroke Jose RN [address] [place] [address] [phone] 03/15/2020 Scheduled Telephone [facility] Linda Wilkinson RN [address] [place] [address] [phone] 03/19/2020 Office Visit Pharmacy [facility] [address] [place] [address] 03/24/2020 Home Visit Family Medicine Mira Duong, Community Health Flume Maker [address] [place] [address] [phone] 04/15/2020 Home Visit [facility] Brooke Jose RN [address] [place] [address] [phone] 05/08/2020 Office Visit Family Medicine Migue Whiteside DO [address] [place] [address] [phone] 05/28/2020 Office Visit Cardiology Marjorie Powell PA-C [address] [place] [address] [phone] 06/03/2020 Office Visit Dermatology Apple Kaminski MD [address] [facility] [place] [address] [phone] 07/10/2020 Office Visit Orthopedics Betsey Teague DO [address] [place] [address] [phone] 07/11/2020 Imaging Radiology 11/27/2020 Office Visit Pulmonary Celsa Tafoya CRNP [address] [place] [address] [phone] Health Maintenance Due Date Last Done Comments [...] Documents on File Type Date Recorded Patient Rivet Maker Expl 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
--- OUTSIDE RECORDS SUMMARY | 2023-06-01 05:25 | External Medical Summary | Summary of Care ---
Author Name Unknown Organization [place] [address] Care Team Providers Care Load Builder Name Role Phone Sergey Whitesidevor Lisa Primary Care Provider Encounter Details Date Type Department Care Team Description 03/10/2020 Scan Encounter Unspecified Department <No scans attached> [...] MG/0.5ML SOPNIndications:DM type 2 nursing care encounter ([facility]),Uncontrolled type 2 diabetes mellitus with stage 3 chronic kidney disease, with long-term current use of insulin ([facility]) Inject 1.5 mg under the skin once a week. 15 mL 3 12/18/2019 Active Nortriptyline HCl (PAMELOR) 50 MG CapsuleIndications:F ibromyalgia Take 1 Cap by mouth at bedtime. 90 Cap 3 12/18/2019 Active gabapentin (NEURONTIN) 300 MG CapsuleIndications:T ype 2 diabetes mellitus with hemoglobin A1c goal of 7.0%-8.0% ([facility]) Take 1 Cap by mouth 3 times a day. 270 Cap 3 12/18/2019 Active DULoxetine (CYMBALTA) 60 MG CPEPIndications:Fibr omyalgia,Moderate episode of recurrent major depressive disorder ([facility]),Primary osteoarthritis of both knees Take [...] 10/14/2014 Overview: ICD-10 update of inactive term [place] filter in place 08/19/2014 History of [...] AM EDT documented as of this encounter Plan of Treatment Upcoming Encounters Date Type Specialty Care Team Description 03/19/2020 Office Visit [facility]acy [facility] [address] [place] [address] 03/24/2020 Home Visit Family Medicine Mira Duong, Community [facility] Resource [facility] Teacher [address] [place] [address] [phone] 04/15/2020 Home Visit [facility] Brooke Jose, RN [address] [place] [address] [phone] 05/08/2020 Office Visit Family Medicine Kevin Whiteside DO [address] [place] [address] [phone] 05/28/2020 Office Visit Cardiology Marjorie Powell PA-C [address] [place] [address] [phone] 06/03/2020 Office Visit Dermatology Apple Kaminski MD [address] [place] [address] [phone] 07/10/2020 Office Visit Orthopedics Zack Teague DO [address] [place] [address] [phone] 07/11/2020 Imaging Radiology 11/27/2020 Office Visit Pulmonary Celsa Tafoya CRNP [address] [place] [address] [phone] Health Maintenance Due Date Last Done Comments [...] on File Type Date Recorded Patient Warp Tension Tester Expl 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
--- OUTSIDE RECORDS SUMMARY | 2023-06-01 05:25 | External Medical Summary | Summary of Care ---
Author Name Unknown Organization [place] [address] Care Team Providers Care Family Practice Doctor Name Role Phone Carey Whitesidelidia Ocampomelinda Primary Care Provider Reason for Visit * Reason Comments [facility]: Acute f/u pain Encounter Details Date Type Department Care Team Description 03/13/2020 Scheduled Telephone [facility], [facility] [address] [facility] [place] [address] Brooke Jose, RN [address] [facility] [address] [phone] Allergies Active Allergy Reactions Severity Noted Date [...] 3 08/30/2018 Active Blood Glucose Monitoring Suppl (Atrum Coal ULTRA 2) w/Device KIT Use to test [...] omyalgia,Moderate episode of recurrent major depressive disorder ([facility]),Primary osteoarthritis of both knees Take 1 [...] 03/13/2020 Office Visit Family Medicine Angi Barr, PA-C [address] [place] [address] [phone] 03/14/2020 Home Visit [facility] Brooke Jose RN [address] [place] [address] [phone] 03/19/2020 Office Visit Pharmacy [facility] [place] [address] [place] [address] 03/24/2020 Home Visit Family Medicine Mira Duong, Community Health Piano Instructor [address] [place] [address] [phone] 04/15/2020 Home Visit [facility] Brooke Jose RN [address] [place] [address] 05/08/2020 Office Visit Family Medicine Kevin Whiteside, DO [address] [place] [address] [phone] 05/28/2020 Office Visit Cardiology Marjorie Powell PA-C [address] [facility] [place] [address] [phone] 06/03/2020 Office Visit Dermatology Apple Kaminski MD [address] [place] [address] [phone] 07/10/2020 Office Visit Orthopedics Zack Teague, [address] [place] [address] [phone] 07/11/2020 Imaging Radiology 11/27/2020 Office Visit Pulmonary Celsa Tafoya CRNP [address] [facility] [place] [address] [phone] Health Maintenance Due Date Last Done Comments [...] on File Type Date Recorded Patient Commercial Intern Expl 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
--- OUTSIDE RECORDS SUMMARY | 2023-06-01 05:25 | External Medical Summary ---
Author Name Unknown Address 132 [facility] [place] [address] Phone Organization [facility] [place] Ord[facility] [address] [facility] [place] [address] Laboratory Report Ordering Provider Test Date Status GINGER MOSLEY 03/07/2020 11:48:00 Final Observation Date Value Abnormality Reference (Units ) Status BUN 03/07/2020 13:25 30 Above high normal 6-20 (mg/dL) Final Creatinine 03/07/2020 13:25 1.7 Above high normal 0.5- 1.0 (mg/dL) Final E Glom Filt Rate 03/07/2020 13:25 31.8 Below low normal >60 Final Performing Location [facility] [place]am[place] Ordaz 132 [facility] [place] [address]
--- OUTSIDE RECORDS SUMMARY | 2023-06-01 05:25 | External Medical Summary | Summary of Care ---
Author Name Unknown Organization [place] [address] Care Team Providers Care Sewage Screen Operator Name Role Phone Kevin Whiteside DO Primary Care Provider Reason for Visit * Reason Comments [facility]: Acute Encounter Details Date Type Department Care Team Description 03/12/2020 Telephone [facility], [facility] [address] [facility] [place] [address] [facility] Nurse [facility] [address] [place] [address] [phone] [facility]: Acute Allergies Active Allergy [...] 3 08/30/2018 Active Blood Glucose Monitoring Suppl (Guardly ULTRA 2) w/Device KIT Use to test [...] major depressive disorder ([facility]),Primary osteoarthritis of both knees Take 1 [...] 76%, time <89% 6:21 hours, TINY [facility] Postsurgical hypothyroidism 06/16/2011 ELLIE (generalized anxiety [...] Encounter - Chrystal Mooney RN - 03/12/2020 1:03 PM EDT TT from [place] to request ER paperwork from [facility]. Called and spoke with Mami fax over. [facility] Intake TT to [place], states found in chart. * Telephone Encounter - Chrystal Mooney RN [...] Mooney RN - 03/12/2020 8:13 AM EDT [facility] rn employee health Acute Call Date: 03/12/2020 Time: 8:13 AM Name: Stephanie Camp : 1955 Caller: Intake to pt Relationship to No chief complaint on file. HPI: Stephanie Camp is a 64 year old old female that is calling [facility] Intake to report call from [...] tolerated to BRATdiet, small freq meals. Aware FILM OR TAPE LIBRARIAN will see pt today. Treatment/Plan: (need to report) Level of call: Acute Appointment scheduled for same day: Yes Advanced Practitioner Provider Name: Homero Miranda Treatment plan until appointment: See above Chrystal Mooney RN [facility] Intake Chart to RN, FILM OR TAPE LIBRARIAN, PCP, [facility]. Call back instructions provided to patient. documented in this encounter Plan of Treatment Upcoming Encounters Date Type Specialty Care Team Description 03/13/2020 Scheduled Telephone [facility] Brooke Jose RN [address] [place] [address] [phone] 03/13/2020 Office Visit Family Medicine Angi Barr PA-C [address] [place] [address] [phone] 03/14/2020 Home Visit [facility] Brooke Jose RN [address] [place] [address] [phone] 03/19/2020 Office Visit [facility] [place] [address] [place] [address] 03/24/2020 Home Visit Family Medicine Mira Duong, Community Health Anthropometrist [address] [place], [place] [address] 04/15/2020 Home Visit [facility] Brooke Jose, RN [address] [facility] [place] [address] [phone] 05/08/2020 Office Visit Family Medicine Kevin Whiteside, DO [address] [facility] [place] [address] [phone] 05/28/2020 Office Visit Cardiology Marjorie Powell, PADar [address] [facility] [place] [address] 06/03/2020 Office Visit Dermatology Apple Kaminski MD [address] [place] [address], [place] [address] 07/10/2020 Office Visit Orthopedics Zack Teague, [address] [facility] [address] 07/11/2020 Imaging Radiology 11/27/2020 Office Visit Pulmonary Celsa Tafoya CRNP [address] [facility] [address] Health Maintenance Due Date Last Done [...] on File Type Date Recorded Patient Inspector Process Expl 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
--- OUTSIDE RECORDS SUMMARY | 2023-06-01 05:25 | External Medical Summary | Summary of Care ---
Author Name Unknown Organization [place] [address] Care Team Providers Care Laboratory Chemical Assistant Name Role Phone Sergey Whitesideronit Ocampomelinda DO Primary Care Provider Reason for Visit * Reason Comments Follow Up discuss let total kn ee replacemnt Encounter Details Date Type Department Care Team Description 03/07/2020 Office Visit Orthopaedics [facility] [address] [facility] [place] [address] Zack Teague DO [address] [facility] [place] [address] [phone] Primary osteoarthritis of left knee*; Ambulatory dysfunction; Chronic pain of left knee; Obesity, morbid (more than 100 lbs over ideal weight or BMI > 40) ([facility]) Allergies Active Allergy Reactions Severity Noted Date Comments Pollen 05/18/2019 Heparin 09/04/2009 Heparin Induced Thrombocytopenia Empagliflozin Other (Please comment) Medium 05/17/2018 3 yeast infections in 6 weeks after starting Morphine And Related 09/16/1997 Hallucinations Tetanus Toxoid Other (Please comment) 06/15/2011 Passed out documented as of this encounter (statuses as of 03/07/2020) Medications Medication Sig Dispensed Refills Start Date [...] 3 08/30/2018 Active Blood Glucose Monitoring Suppl (DailyWorthTOUCH ULTRA 2) w/Device KIT Use to test [...] A1c goal of 7.0%-8.0% ([facility]) Take 1 Cap by mouth 3 times a day. 270 Cap 3 12/18/2019 Active DULoxetine (CYMBALTA) 60 MG CPEPIndications:Fibr omyalgia,Moderate episode of recurrent major depressive disorder ([facility]),Primary osteoarthritis of both knees Take 1 Cap [...] as of this encounter (statuses as of 03/07/2020) Active Problems Problem Noted Date Uncontrolled type [...] as of this encounter (statuses as of 03/07/2020) Resolved Problems Problem Noted Date Resolved Date [...] as of this encounter (statuses as of 03/07/2020) Immunizations Name Administration Dates Next Due Pneumococcal [...] Pressure - - Pulse - - Temperature 36 C (96.8 F) 03/07/2020 10:37 AM EDT Respiratory Rate - - Oxygen Saturation - - Inhaled Oxygen Concentration - - Weight 143.8 kg (317 lb) 03/07/2020 10:37 AM EDT Height 162.6 cm (5' 4") 03/07/2020 10:37 AM EDT Body Mass Index 54.41 03/07/2020 10:37 AM EDT documented in this encounter Progress Notes * Zack Teague, DO - 03/07/2020 11:27 AM EDT ORTHOPAEDIC SURGERY - Clinic Note SUBJECTIVE: Stephanie Camp is a 64 year old female. Chief Complaint Patient presents with Follow Up discuss let total knee replacemnt HPI: She presents today for re-evaluation of left knee pain and further discussion on joint replacement candidacy. She continues report pain, stiffness and difficulty with mobility. She is using a cane. She has failed adequate conservative management over the years. The next step would be joint repl acement. She has been working on weight loss since her last evaluation. She also has been focused on reducing her hemoglobin A1c. Review of Systems: Constitutional ROS: No fevers, [...] MOUTH EVERY EIGHT HOURS NEEDED FOR SEVERE PAIN90 Tab 0 insulin aspart (INSULIN ASPART) 100 UNIT/ML injection NOVOLOG Vial- USE IN INSULIN PUMP UP TO 200 UNITS PER DAY 10 mL 0 ACCU-CHEK SOFTCLIX LANCETS MISC Test blood sugar three or four times daily as directed 400 Each 3 Dulaglutide (TRULICITY) 1.5 MG/0.5ML SOPN Inject 1.5 mg under the skin once a week. 15 mL 3 DULoxetine (CYMBALTA) 30 MG CPEP Take 1 Cap by mouth daily. Take along with the 60mg dose for totally of 90mg daily. Do not cut, crush or chew 90 Cap 3 DULoxetine (CYMBALTA) 60 MG CPEP Take 1 Cap by mouth daily. Along with 30 mg capsule to total 90 mgdaily. 90 Cap 3 gabapentin (NEURONTIN) 300 MG Capsule Take [...] Cap by mouth daily. 90 Cap 3 rOPINIRole (REQUIP) 2 MG Tablet Take 1 Tab by mouth at bedtime. 90 Tab 3 traZODone (DESYREL) 50 MG Tablet Take [...] 60 g 1 Blood Glucose Monitoring Suppl (Nival ULTRA 2) w/Device KIT Use to test [...] A1c goal of 7.0%-8.0% ([facility]) E11.9 Fibromyalgia M79.7 Abnormality of gait R26.9 Restless legs syndrome G25.81 Gastroesophageal reflux disease with esophagitis K21.0 Body mass index (BMI) of 50.0 to 59.9 in adult ([facility]) Z68.43 Controlled substance agreement signed Z79.899 Chronic diastolic congestive heart failure ([facility]) I50.32 Thoracic back pain M54.6 Mild episode of recurrent major depressive disorder ([facility]) F33.0 Lumbar radiculopathy M54.16 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, NYHA class 1 and CKD stage 3 ([facility]) I13.0, I50.30, N18.3 Chronic respiratory failure with hypoxia ([facility]) J96.11 Hyperparathyroidism, secondary renal ([facility]) N25.81 Vasculitis ([facility]) I77.6 Primary osteoarthritis of left knee M17.12 Uncontrolled type 2 diabetes mellitus with stage 4 chronic kidney disease, with long-term current use of insulin ([facility]) E11.22, E11.65, N18.4, Z79.4 Past Medical History: Diagnosis Date ELSIE (acute kidney injury) ([facility]) 06/12/2018 Allergic rhinitis due to other allergen Backache Diverticulosis of colon 01/28/06 DM type 2, not at goal ([facility]) ELLIE (generalized anxiety disorder) 09/13/2009 [address]iter [place] filter in place 08/19/2014 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[facility] [...] COLONOSCOPY, DIAGNOSTIC (RECTUM) 02/18/2016 normal, repeat 10 yrs/[facility] COLONOSCOPY, GI REFERRAL OP 01/28/06 diverticulosis--repeat 10 years INCISION OF WINDPIPE, PLANNED 06/03/2011 TRACHEOSTOMY PLANNED performed by DANNY HOLDER at [place] [facility] KNEE ARTHROSCOPY/DEBRIDEMENT 07/[address] PERMANENT GASTROSTOMY TUBE 09/06/09 GASTROSTOMY WITH CONSTUCTION GASTRIC TUBE performed by AMADOU NUNEZ at [facility] REMOVAL OF THYROID GLAND 06/15/2011 THYROIDECTOMY INCLUDING SUBSTERNAL THYROID CERVICAL APPROACH performed by DANNY HOLDER at [facility] REMOVE GALLBLADDER 09/06/09 CHOLECYSTECTOMY performed by AMADOU NUNEZ at [place] [facility] REPAIR RECURRENT INCISIONAL HERNIA 1998 REVISION OF COLOSTOMY, SIMPLE 1998 SUTURE, LARGE INTESTINE W/COLOSTOMY 1996 perforation R colon with colostomy VENA CAVA FILTER/LIGATION/CLIP 08/19/09 [place] filter placement through the right femoral 08/19/[address] Lerma at [facility] Social History Tobacco Use Smoking status: Former Smoker Packs/day: 1.00 Years: 15.00 Pack years: 15.00 Last attempt to quit: 08/26/1997 Years since quittin.5 Smokeless tobacco: Never Used Substance Use Topics Alcohol use: Not Currently Comment: rare Drug use: No Vaping/E-Cigarette Use Vaping/E-Cigarette Use Never User Vaping/E-Cigarette Substances Vaping/E-Cigarette Devices Family history: Noncontributory OBJECTIVE: Vital Signs: Temp 96.8 | Ht 5' 4" (1.626m) | Wt 317 lbs (143.790kg) | BMI 54.41 kg/m | BSA 2.55 m | LMP 03/11/2003 Physical Exam: Gait Assessment is antalgic with use of a cane Examination left knee reveals no evidence of edema. There is no effusion. Exquisite tenderness to palpation along the medial joint line. She exhibits roughly 0-115 degrees active motion limited secondary to pain. Quad strength is intact. Collateral stability intact. Sensation intact. Pulses palpable. ASSESSMENT: Primary osteoarthritis of left knee (Primary) Ambulatory dysfunction Chronic pain of left knee Obesity, morbid (more than 100 lbs over ideal weight or BMI > 40) ([facility]) Follow Up: Return in about 4 months (around 07/07/2020). PLAN: We discussed continued focus on weight management. I talked with her about at goal of 260 lbs. Her hemoglobin A1c is now less than 8. I would like to see her back in the upcoming months for re-evaluation and further discussion on joint replacement if she appropriately continues in working towards goals outlined today. All questions answered. This chart was completed in part utilizing [employer] Speech Voice Recognition Software. Grammatical errors, random word insertions, pronoun errors, and incomplete sentences are an occasional consequence of this system due to software limitations, ambient noise, and hardware issues. Any formal questions or concerns about the content, text, or information contained within the body of this dictation should be directly addressed to the provider for clarification. Zack Teague DO 03/07/2020 11:27 AM documented in this encounter Nursing Notes * Parvin Ritchie LPN - 03/07/2020 10:34 AM EDT Patient presents today to discuss left total knee replacement. Last injection of Geylsn was . Patient states injections did not help just as bad as it was. Patient states did not do any PT d/t covid-19. A1C is 7.3, weight is 317 lb. documented in this encounter Plan of Treatment Upcoming Encounters Date Type Specialty Care Team Description 03/19/2020 Office Visit [facility]acy [facility] [place] [address] [place] [address] 03/24/2020 Home Visit Family Medicine Mira Duong, Community Health Wagon Driver Salesperson [address] [place], [place] [address] 04/15/2020 Home Visit [facility] Brooke Jose RN [address] [place] [address] [phone] 05/08/2020 Office Visit Family Medicine Kevin Whiteside DO [address] [place] [address] [phone] 05/28/2020 Office Visit Cardiology Marjorie Powell PA-C [address] [place] [address] [phone] 06/03/2020 Office Visit Dermatology Apple Kaminski MD [address] [place] [address], [place] [address] [phone] 07/10/2020 Office Visit Orthopedics Zack Teague DO [address] [place] [address] [phone] 07/11/2020 Imaging Radiology 11/27/2020 Office Visit Pulmonary Celsa Tafoya CRNP [address] [place] [address] [phone] Health Maintenance Due Date Last Done Comments [...] knee- Primary Primary localized osteoarthrosis, lower leg Ambulatory dysfunction Chronic pain of left knee Pain in joint, lower leg Obesity, morbid (more than 100 lbs over ideal weight or BMI > 40) ([facility]) Morbid obesity documented in this encounter Advance Directives Documents on File Type Date Recorded Patient Editorial Specialist Expl 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
--- OUTSIDE RECORDS SUMMARY | 2023-06-01 05:25 | External Medical Summary | Summary of Care ---
Author Name Unknown Organization [place] [address] Care Team Providers Care Javascript Ui Developer Name Role Phone Kevin Whiteside DO Primary Care Provider Reason for Visit * Reason Comments eRx-Medication Refill Encounter Details Date Type Department Care Team Description 03/10/2020 Refill Family Practice [facility] [address] [place] [id number] Kevin Whiteside DO [address] [facility] [place] [address] [phone] Restless legs syndrome Allergies Active Allergy Reactions [...] 3 08/30/2018 Active Blood Glucose Monitoring Suppl (4Home ULTRA 2) w/Device KIT Use to test [...] omyalgia,Moderate episode of recurrent major depressive disorder ([facility]),Primary osteoarthritis of both knees Take [...] 10/14/2014 Overview: ICD-10 update of inactive term [place] filter in place 08/19/2014 History of pulmonary embolus (PE) 2013 Statin intolerance 07/16/2014 HTN, goal below 130/80 02/22/2014 Venous insufficiency 02/07/2013 ELISSA (obstructive sleep apnea) 09/16/2011 Overview: CPAP 11 cwp Mild, AHI 11.3 but with significant nocturnal hypoxemia Dicks Nocturnal hypoxemia 07/22/2011 Overview: Nocturnal ox 2 LPM 07/20/11 -- mean 84%, low 76%, time <89% 6:21 hours, TINY 47 [facility] Postsurgical hypothyroidism 06/16/2011 ELLIE (generalized anxiety [...] Telephone Encounter - Anne Burroughs RP - 03/11/2020 3:30 PM EDT Refused Prescriptions: Disp Refills rOPINIRole (REQUIP) 2 MG Tablet [Pharmacy *90 Tab 0 Sig: TAKE ONE TABLET BY MOUTH THREE TIMES DAILY Refused By: ANNE BURROUGHS for Refusal: Other (comment below)Reason for Refusal Comment: sent to [place]; placed call to pt to clarify resend locally DULoxetine (CYMBALTA) 30 MG CPEP [Pharmacy*90 Cap 0 Sig: TAKE ONE CAPSULE BY MOUTH DAILY. take with 60mg dosefor total of 90mg. do not cut crush or chewRefused By: ANNE BURROUGHS for Refusal: Patient never under prescriber Abdi for Refusal Comment: sent to [place]; placed call to pt to clarify resend locally * Telephone Encounter - Anne Burroughs [facility] - 03/11/2020 3:24 PM EDT Requests from local pharmacy for refills [facility] Called patient to see if they should be now sent to [facility] instead but had to leave a general messagefor a return call. Also, ropinirole requested has different directions from rx currently in profile. Please clarify with patient if she returns call and route appropriately. Thanks, Anne Burroughs [facility] Clinical Pharmacist Telepharmacy [phone] 03/11/2020, 3:28 PM documented in this encounter Plan of Treatment Upcoming Encounters Date Type Specialty Care Team Description 03/13/2020 Office Visit Family Medicine Angi Barr PA-C [address] [place] [address] [phone] 03/19/2020 Office Visit Pharmacy [facility] Jeramie [address] [place] [address] 03/24/2020 Home Visit Family Medicine Mira Duong, Community Health Field Crew Chief [address] [place] [address] 04/15/2020 Home Visit [facility] Brooke Jose, RN [address] [place] [address] [phone] 05/08/2020 Office Visit Family Medicine Kevin Whiteside DO [address] [place] [address] [phone] 05/28/2020 Office Visit Cardiology Marjorie Powell PA-C [address] [place] [address] [phone] 06/03/2020 Office Visit Dermatology Apple Kaminski MD [address] [place] [address] [phone] 07/10/2020 Office Visit Orthopedics Zack Teague DO [address] [place] [address] [phone] 07/11/2020 Imaging Radiology 11/27/2020 Office Visit Pulmonary Celsa Tafoya CRNP [address] [place] [address] [phone] Health Maintenance Due Date Last Done Comments [...] on File Type Date Recorded Patient Chief Librarian Branch Or Department Expl 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
--- OUTSIDE RECORDS SUMMARY | 2023-06-01 05:26 | External Medical Summary | Summary of Care ---
Author Name Unknown Organization [place] [address] Care Team Providers Care Circuit Board Drafter Name Role Phone Stevo Kevin Ocampomelinda Primary Care Provider Reason for Visit * Reason Comments Acute Right lower leg red and painful, foot is swollen Encounter Details Date Type Department Care Team Description 02/25/2020 Office Visit [facility] [address] [facility] [place] [address] Sanjiv Tolliver DO [address] [place] [address] Type 2 diabetes mellitus with diabetic peripheral angiopathy without gangrene, with long-term current use of insulin ([facility])*; Type 2 diabetes mellitus with hemoglobin A1c goal of 7.0%-8.0% ([facility]); HTN, goal below 130/80; Chronic diastolic congestive heart failure ([facility]); CKD (chronic kidney disease) stage 3, GFR 30-59 ml/min ([facility]) Allergies Active Allergy Reactions Severity Noted Date Comments Pollen 05/18/2019 Heparin 09/04/2009 Heparin Induced Thrombocytopenia Empagliflozin Other (Please comment) Medium 05/17/2018 3 yeast infections in 6 weeks after starting Morphine And Related 09/16/1997 Hallucinations Tetanus Toxoid Other (Please comment) 06/15/2011 Passed out documented as of this encounter (statuses as of 02/27/2020) Medications Medication Sig Dispensed Refills Start Date [...] 3 8 Active Blood Glucose Monitoring Suppl (GenometryTOVULCUN ULTRA 2) w/Device KIT Use to test [...] a day. 270 Cap 3 0 Active DULoxetine (CYMBALTA) 60 MG CPEPIndications:Fib romyalgia,Moderate episode of recurrent major depressive disorder (HCC),Primary osteoarthritis of both knees Take 1 Cap by mouth daily. Along with 30 mg capsule to total 90 mg daily. 90 Cap 3 0 Active insulin aspart (INSULIN ASPART) 100 UNIT/ML injection USE IN INSULIN PUMP UP TO 200 UNITS PER DAY 90 mL 0 Active levothyroxine (LEVOXYL) 200 MCG TabletIndications:P ostsurgical hypothyroidism TAKE ONE TABLET BY MOUTH EVERY DAY AT LEAST 30 MINUTES BEFORE BREAKFAST OR OTHER MEDS 90 Tab 0 Active levothyroxine (LEVOXYL) 25 MCG TabletIndications:P ostsurgical hypothyroidism (at least 30 min prior to breakfast or other meds) 90 Tab 0 Active DULoxetine (CYMBALTA) 30 MG CPEP Take 1 Cap by mouth daily. Take along with the 60mg dose for totally of 90mg daily. Do not cut, crush or chew 90 Cap 0 Active Magnesium Oxide 400 (241.3 mg) Tablet Take 400 mg by mouth daily. 90 Tab 0 Active Glucose Blood (vushaperUCH ULTRA BLUE) STRP Check sugars 3-4 times daily 400 Strip 0 Active traZODone (DESYREL) 50 MG Tablet Take 1 Tab by mouth at bedtime. 90 Tab 0 Active rOPINIRole (REQUIP) 2 MG TabletIndications:R [...] a day. 90 Tab 3 0 Active omeprazole (PRILOSEC) 20 MG CPDR Take 1 Cap by mouth daily. 90 Cap 0 Active insulin aspart (INSULIN ASPART) 100 UNIT/ML injection NOVOLOG Vial- USE IN INSULIN PUMP UP TO 200 UNITS PER DAY 10 mL 0 0 Active clonazePAM (KLONOPIN) 0.5 MG TabletIndications:A nxiety state TAKE ONE TABLET BY MOUTH TWICE DAILY 60 Tab 0 0 Active traMADol (ULTRAM) 50 MG TabletIndications:C hronic pain syndrome TAKE ONE TABLET BY MOUTH EVERY EIGHT HOURS NEEDED FOR SEVERE PAIN 90 Tab 0 0 Active colchicine 0.6 MG TabletIndications:L eukocytoclastic vasculitis (HCC) Take 1/2 tab daily 45 Tab 1 0 Active furosemide (LASIX) 40 MG TabletIndications:C hronic diastolic congestive heart failure (HCC) Take 1.5 Tabs by mouth daily. 135 Tab 3 0 02/26/20 20 Discontinued Hospital, Clinic, or Other Facility Administered Medication Ordered Dose Route Frequency Start Date End Date Status levalbuterol (XOPENEX) inhalation solution 0.63 mgIndications:Wheezing 0.63 mg NEBULIZER Q4H PRN 09/12/2019 Ac tive documented as of this encounter (statuses as of 02/27/2020) Active Problems Problem Noted Date Uncontrolled type [...] 10/14/2014 Overview: ICD-10 update of inactive term Summit filter in place 08/19/2014 History of pulmonary [...] as of this encounter (statuses as of 02/27/2020) Resolved Problems Problem Noted Date Resolved Date [...] as of this encounter (statuses as of 02/27/2020) Immunizations Name Administration Dates Next Due Pneumococcal [...] have Coronavirus / COVID-19? No / Unsure 02/27/2020 12:59 PM EDT documented as of this encounter Last Filed Vital Signs Vital Sign Reading Time Taken Comments Blood Pressure 132/60 02/25/2020 1:01 PM EDT Pulse 98 02/25/2020 1:01 PM EDT Temperature 36.9 C (98.5 F) 02/25/2020 1:01 PM ED T Respiratory Rate 20 02/25/2020 1:01 PM EDT Oxygen Saturation - - Inhaled Oxygen Concentration - - Weight 146.1 kg (322 lb) 02/25/2020 1:01 PM EDT Height - - Body Mass Index 55.27 11/30/2019 9:05 AM EST documented in this encounter Progress Notes * Sanjiv Tolliver DO - 02/25/2020 1:09 PM EDT Subjective: Brief Clinical History Ms. Camp is a 64 year old woman last seen in Family Medicine 2 months ago (12-10-19). She has h/o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, NYHA class 1 and CKD stage 3 ([facility]), Body mass index (BMI) of 50.0 to 59.9 in adult ([facility]), cardio respiratory failure, chronic diabetic complication, Chronic diastolic congestive heart failure (HCC), Chronic respiratory failure with hypoxia ([facility]), depression, heart failure, Hyperparathyroidism, secondary renal (HCC), metabolic disorder, Mild episode of recurrent major depressive disorder (HCC), morbid obesity, Uncontrolled type 2 diabetes mellitus with stage 4 chronic kidney disease, with long-term current use of insulin (HCC), vascular disease, and Vasculitis (HCC), due for eval of Uncontrolled type 2 diabetes mellitus with stage 4 chronic kidney disease, with long-term current use of insulin (HCC). Chief Complaint Patient presents with Acute Right lower leg red and painful, foot is swollen HPI: Patient is a 64-year-old female with history of diabetes mellitus type 2, hypertension and chronic diastolic congestive heart failure with CKD stage 3. Patient complains of right lower leg pain and redness with foot swelling. Patient denies fever chills or sweats. Patient denies chest pain, shortness of breath or palpitations. Patient denies polyuria polydipsia or blurred vision. Patient denies nasal congestion sore throat or earache. Patient is cough or sputum. Patient denies abdominal pain nausea vomiting diarrhea constipation. Patient denies urinary frequency dysuria hematuria. Review of systems otherwise negative Results for orders placed or performed in visit on 02/21/20 BASIC METAB PANEL, BMP Result Value Ref Range BUN 27 (H) 6 - 20 mg/dL CREATININE 1.4 (H) 0.5 - 1.0 mg/dL E GLOM FILT RATE 38.3 (L) >60 SODIUM 140 135 - 146 mmol/L POTASSIUM 3.9 3.5 - 5.1 mmol/L CHLORIDE 99 98 - 107 mmol/L CO2 28 22 - 32 mmol/L ANION GAP 13 7 - 15 mmol/L GLUCOSE 137 (H) 70 - 120 mg/dL CALCIUM 9.4 8.4 - 10.2 mg/dL *Note: Due to a large number of results and/or encounters for the requested time period, some results have not been displayed. A complete set of results can be found in Results Review. Past Medical History: Medication list, PMH, Family history, social history, and problem list have been reviewed and updated in the Electronic Medical Record as noted below. Patient Active Problem List Diagnosis Code Dyslipidemia E78.5 ELLIE (generalized anxiety disorder) F41.1 Postsurgical hypothyroidism E89.0 Nocturnal hypoxemia G47.34 ELISSA (obstructive sleep apnea) G47.33 Venous insufficiency I87.2 HTN, goal below 130/80 I10 History of pulmonary embolus (PE) Z86.711 Statin intolerance Z78.[address] Z95.828 Type 2 diabetes mellitus with hemoglobin A1c goal of 7.0%-8.0% ([facility]) E11.9 Fibromyalgia M79.7 Abnormality of gait R26.9 Restless legs syndrome G25.81 Gastroesophageal reflux disease with esophagitis K21.0 Body mass index (BMI) of 50.0 to 59.9 in adult ([facility]) Z68.43 Controlled substance agreement signed Z79.899 Chronic diastolic congestive heart failure ([facility]) I50.32 Thoracic back pain M54.6 Mild episode of recurrent major depressive disorder ([facility]) F33.0 Lumbar radiculopathy M54.16 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, NYHA class 1 and CKD stage 3 ([facility]) I13.0, I50.30, N18.3 Chronic respiratory failure with hypoxia ([facility]) J96.11 Hyperparathyroidism, secondary renal ([facility]) N25.81 Vasculitis ([facility]) I77.6 Primary osteoarthritis of left knee M17.12 Uncontrolled type 2 diabetes mellitus with stage 4 chronic kidney disease, with long-term current use of insulin ([facility]) E11.22, E11.65, N18.4, Z79.4 Current Outpatient Medications Medication Sig Dispense Refill colchicine 0.6 MG Tablet Take 1/2 tab daily 45 Tab 1 clonazePAM (KLONOPIN) 0.5 MG Tablet TAKE ONE TABLET BY MOUTH TWICE DAILY 60 Tab 0 traMADol (ULTRAM) 50 MG Tablet TAKE ONE TABLET BY MOUTH EVERY EIGHT HOURS NEEDED FOR SEVERE PAIN 90 Tab 0 furosemide (LASIX) 40 MG Tablet Take 1.5 Tabs by mouth daily. 135 Tab 3 insulin aspart (INSULIN ASPART) 100 [...] total 90 mg daily. 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[facility]) 06/12/2018 History of pulmonary embolus (PE) 07/16/2014 HTN, goal below 140/90 Impetigo 09/27/2018 Obesity, BMI not known Perforation of intestine ([facility]) 1996 COLON -- 1996 Pneumonia in aspergillosis(484.6) 09/14/2009 Spontaneous pneumothorax 09/14/2009 Statin intolerance 07/16/2014 Type 2 diabetes mellitus with hemoglobin A1c goal of 7.0%-8.0% ([facility]) 10/14/2014 ICD-10 update of inactive term Vaginal karmen 07/13/2018 Past Surgical History: Procedure Laterality Date ARTHROPLASTY KNEE TOTAL Right 07/24/14 R COLONOSCOPY, DIAGNOSTIC (RECTUM) 02/18/2016 normal, repeat 10 yrs/[facility] COLONOSCOPY, GI REFERRAL OP 01/28/06 diverticulosis--repeat 10 years INCISION OF [place], PLANNED 06/03/2011 TRACHEOSTOMY PLANNED performed by DANNY HOLDER at OR [facility] KNEE ARTHROSCOPY/DEBRIDEMENT 07/[address] PERMANENT GASTROSTOMY TUBE 09/06/09 GASTROSTOMY WITH CONSTUCTION GASTRIC TUBE performed by AMADOU NUNEZ at OR [facility] REMOVAL OF THYROID GLAND 06/15/2011 THYROIDECTOMY INCLUDING SUBSTERNAL THYROID CERVICAL APPROACH performed by DANNY HOLDER at OR [facility] REMOVE GALLBLADDER 09/06/09 CHOLECYSTECTOMY performed by AMADOU NUNEZ at OR [facility] REPAIR RECURRENT INCISIONAL HERNIA 1998 REVISION OF COLOSTOMY, SIMPLE 1998 SUTURE, LARGE INTESTINE W/COLOSTOMY 1996 perforation R colon with colostomy VENA CAVA FILTER/LIGATION/CLIP 08/19/09 Summit filter placement through the right femoral 08/19/09 [...] (Not Specified) PGFA (Not Specified) Social History Tobacco Use Smoking status: Former Smoker Packs/day: 1.00 Years: 15.00 Pack years: 15.00 Last attempt to quit: 08/26/1997 Years since quittin.5 Smokeless tobacco: Never Used Substance Use Topics Alcohol use: Not Currently Comment: rare Vaping/E-Cigarette Use Vaping/E-Cigarette Use Never User Vaping/E-Cigarette Substances Vaping/E-Cigarette Devices Review of Systems: No nausea, vomiting or diarrhea. No chest pain or shortness of breath, No fatigue. No fevers, chillor night sweats. All other ROS examined in detail and are negative except as documented in HPI. All other systems reviewed and are negative. Objective: BP 132/60 | Pulse 98 | Temp (Src) 98.5 (Tympanic) | Resp 20 | Wt 322 lbs (146.058kg) | BMI 55.27 kg/m | BSA 2.57 m | LMP 03/11/2003 Physical Exam: General: alert, healthy and no distress Head: Normocephalic, No masses, lesions, tenderness or abnormalities Eye Exam: PERRLA, EOMI, Conjunctiva are pink and non-injected, fundi benign, sclera clear Ears: External ears normal, Canals clear, TM's Normal Nose: no mucosal erythema, no mucosal edema, no purulent discharge Oropharynx: no exudate, no erythema, lips, buccal mucosa, and tongue normal and dentition normal Neck: supple, no adenopathy, thyroid normal size, non-tender, without nodularity, trachea midline Lymph: no palpable lymphadenopathy Heart: regular rate & rhythm, no murmurs and no gallops Lungs: chest symmetric with normal AP diameter, no chest deformities noted, no chest wall tenderness, lungs clear to auscultation Pulses: carotid=2/4 w/o bruits Abdomen: abdomen soft, non-tender, no masses, no hepatosplenomegaly, no rebound or guarding Back: back symmetric, no curvature, no costovertebral angle tenderness, range of motion is normal Extremities: no clubbing, no cyanosis, + 1/4 edema right lower extremity with erythema, no skin ulcerations, vesicular pustular lesions, decreased pulses DP and post tib Neuro Exam: alert & oriented x 3 with fluent speech, no focal motor/sensory deficits, gait normal, reflexes normal and symmetric Skin: skin color, texture, turgor are normal, no rashes or significant lesions ASSESSMENT/PLAN: Type 2 diabetes mellitus with diabetic peripheral angiopathy without gangrene, with long-term current use of insulin (HCC) (Primary) - VASC ANKLE BRACHIAL INDICES WITHOUT PPG (PAD) for right lower extremity PVD Type 2 diabetes mellitus with hemoglobin A1c goal of 7.0%-8.0% (HCC) Continue present medication Diabetic diet HTN, goal below 130/80 Continue present medication Cardiac diet Chronic diastolic congestive heart failure (HCC) Stable Continue present medication CKD (chronic kidney disease) stage 3, GFR 30-59 ml/min ([facility]) Stable Avoid nonsteroidal anti-inflammatory drugs Sanjiv Tolliver DO 02/25/20 documented in this encounter Nursing Notes * Tiff Maria LPN - 02/25/2020 1:00 PM EDT Chief Complaint Patient presents with Acute Right lower leg red and painful, foot is swollen documented in this encounter Plan of Treatment Upcoming Encounters Date Type Specialty Care Team Description 03/03/2020 Home Visit [facility] Brooke Jose, RN [address] [address] [phone] 03/05/2020 Office Visit [facility] [address] [address] 03/07/2020 [facility] [address] [place] [address] [phone] 03/24/2020 Home Visit Family Medicine Mira Duong, [facility] [address] [place] [address] [phone] 05/08/2020 Office Visit Family Medicine [facility] Whiteside, DO [address] [facility] [place] [address] [phone] 05/28/2020 Office Visit Cardiology Marjorie Powell PA-C [address] [facility] [place] [address] 06/03/2020 Office Visit Dermatology Apple Kaminski MD [address] [facility] [place] [address] [phone] 07/11/2020 Imaging Radiology 11/27/2020 [facility] [address] [facility] [id number] Maintenance Due Date Last Done Comments [...] Procedure Name Priority Date/Time Associated Diagnosis Comments VASC ANKLE BRACHIAL INDICES WITHOUT PPG (PAD) Routine 02/27/2020 1:49 PM EDT Type 2 diabetes mellitus with diabetic peripheral angiopathy without gangrene, with long-term current use of insulin (HCC) documented in this encounter Results * VASC ANKLE BRACHIAL INDICES WITHOUT PPG (PAD) (02/27/2020 1:49 PM EDT) Specimen Impressions Performed At : [facility] at rest is 1.2 on the right and 1.2 on the left. For the right lower extremity: Lower extremity Doppler Evaluation is normal at rest with no evidence of significant arterial occlusive disease. Great toe pressure is 120. PPG tracing of the great toe has good amplitude. For the left lower extremity: Lower extremity Doppler Evaluation is normal at rest with no evidence of significant arterial occlusive disease. Great toe pressure is 126. PPG tracing of the great toe has good amplitude. Narrative Performed At VASCULAR LAB RESULTS DATE OF EXAMINATION: 02/27/20 INDICATION: diabetes with PVD This is an interpretation of an exam performed at the [facility]. ANKLE BRACHIAL INDEX OF THE LOWER EXTREMITIES Immediately before proceeding with the vascular lab procedure reported below, the identity of the patient, the correct exam and the correct procedural site were identified. Continuous wave doppler and appropriate size pressure cuffs were utilized during the examination. Findings: The right and left brachial artery blood pressures are 122 mmHg and 118 mmHg respectively. On the right, the posterior tibial artery waveform is triphasic and has an amplitude which is excellent. . The right dorsalis pedis artery waveform is triphasic and has an amplitude which is excellent. The right peroneal artery waveform is triphasic and has an amplitude which is decreased. The tibial pressures range from 128 mmHg to 144 mmHg. On the left, the posterior tibial artery waveform is triphasic and has an amplitude which is excellent. . The left dorsalis pedis artery waveform is triphasic and has an amplitude which is excellent. . The left peroneal artery waveform is triphasic and has an amplitude which is decreased. The tibial pressures range from 126 mmHg to 140 mmHg. documented in this encounter Visit Diagnoses Diagnosis Type 2 diabetes mellitus with diabetic peripheral angiopathy without gangrene, with long-term current use of insulin ([facility])- Primary Type 2 diabetes mellitus with hemoglobin A1c goal of 7.0%-8.0% ([facility]) HTN, goal below 130/80 Unspecified essential hypertension Chronic diastolic congestive heart failure ([facility]) Chronic diastolic heart failure CKD (chronic kidney disease) stage 3, GFR 30-59 ml/min ([facility]) Chronic kidney disease, Stage III (moderate) documented in this encounter Advance Directives Documents on File Type Date Recorded 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
--- OUTSIDE RECORDS SUMMARY | 2023-06-01 05:26 | External Medical Summary | Summary of Care ---
Author Name Unknown Organization [place] [address] Care Team Providers Care Buttermaker Name Role Phone Kevin Whiteside DO Primary Care Provider Encounter Details Date Type Department Care Team Description 02/13/2020 Home Visit [facility], [facility] [address] [facility] [place] [address] Coordinator, [facility] 132 [facility] [place] [address] [phone] Allergies Active Allergy Reactions Severity Noted Date Comments Pollen 05/18/2019 Heparin 09/04/2009 Heparin Induced Thrombocytopenia Empagliflozin Other (Please comment) Medium 05/17/2018 3 yeast infections in 6 weeks after starting Morphine And Related 09/16/1997 Hallucinations Tetanus Toxoid Other (Please comment) 06/15/2011 Passed out documented as of this encounter (statuses as of 02/25/2020) Medications Medication Sig Dispensed Refills Start Date [...] type 2 nursing care encounter ([facility]),Uncontrolled type 2 diabetes mellitus with stage 3 chronic kidney disease, with long-term current use of insulin ([facility]) Inject 1.5 mg under the skin once a week. 15 mL 3 12/18/2019 Active Nortriptyline HCl (PAMELOR) 50 MG CapsuleIndications:F ibromyalgia Take 1 Cap by mouth at bedtime. 90 Cap 3 12/18/2019 Active gabapentin (NEURONTIN) 300 MG CapsuleIndications:T ype 2 diabetes mellitus with hemoglobin A1c goal of 7.0%-8.0% ([facility]) Take 1 Cap by mouth 3 times a day. 270 Cap 3 12/18/2019 Active DULoxetine (CYMBALTA) 60 MG CPEPIndications:Fibr omyalgia,Moderate episode of recurrent major depressive disorder ([facility]),Primary osteoarthritis of both knees Take 1 Cap [...] OTHER MEDS 90 Tab 3 12/18/2019 Active levothyroxine (LEVOXYL) 25 MCG TabletIndications:Po stsurgical hypothyroidism (at least 30 min prior to breakfast or other meds) 90 Tab 3 12/18/2019 Active DULoxetine (CYMBALTA) 30 MG CPEP Take 1 Cap by mouth daily. Take along with the 60mg dose for totally of 90mg daily. Do not cut, crush or chew 90 Cap 3 12/18/2019 Active Magnesium Oxide 400 (241.3 mg) Tablet Take 400 mg by mouth daily. 90 Tab 3 12/18/2019 Active Glucose Blood (Easy VoyageUCH ULTRA BLUE) STRP Check sugars 3-4 times [...] PER DAY 10 mL 0 01/17/2020 Active furosemide (LASIX) 40 MG TabletIndications:Ch ronic diastolic congestive heart failure (HCC) Take 1.5 Tabs by mouth daily. 135 Tab 3 01/23/2020 Active clonazePAM (KLONOPIN) 0.5 MG TabletIndications:An xiety state TAKE ONE TABLET BY MOUTH TWICE DAILY 60 Tab 0 01/29/2020 Active traMADol (ULTRAM) 50 MG TabletIndications:Ch ronic pain syndrome TAKE ONE TABLET BY MOUTH EVERY EIGHT HOURS NEEDED FOR SEVERE PAIN 90 Tab 0 01/29/2020 Active colchicine 0.6 MG TabletIndications:Le ukocytoclastic vasculitis (HCC) Take 1/2 tab daily 45 Tab 1 01/31/2020 Active Hospital, Clinic, or Other Facility Administered Medication Ordered Dose Route Frequency Start Date End Date Status levalbuterol (XOPENEX) inhalation solution 0.63 mgIndications:Wheezing 0.63 mg NEBULIZER Q4H PRN 09/12/2019 Ac tive documented as of this encounter (statuses as of 02/25/2020) Active Problems Problem Noted Date Uncontrolled type [...] as of this encounter (statuses as of 02/25/2020) Resolved Problems Problem Noted Date Resolved Date [...] as of this encounter (statuses as of 02/25/2020) Immunizations Name Administration Dates Next Due Pneumococcal [...] have Coronavirus / COVID-19? No / Unsure 02/25/2020 12:53 PM EDT documented as of this encounter Progress Notes * Lisandra Thomas LPN - 02/13/2020 10:00 AM EDT Reason for acute visit follow up call: Weight gain and RLE cellulitis. Are symptoms improving/worsening/same? Swelling is mildly improved and pain is decreased from a 7 on pain scale with activity to a 5 or 6 today. Pain level remains a 4 at rest. Her leg is warm to touch today, not hot per pt. Weight is down 1 lb today at 324.0 Was a new med or new treatment ordered at the time of acute visit by provider? Double lasix to 60mgbid x 3 days and Doxycycline 100mg bid x10 days-take as ordered. She started the doxycycline last evening but did not increase Lasix because she wanted a good nights sleep. She will increase Lasix to60 mg twice daily for three days beginning today. She is continuing with 1.5L fluid restriction. Any labs/tests results to follow up on? No labs/testing done. Provided call back number for any changes in condition. Red flags include: increasededema, pain or redness spreading. A follow up call is scheduled for 02/14/20 at 10:00 am to assess symptoms. Routed to Blaire Jose RN, CM as FYI. documented in this encounter Nursing Notes * Lisandra Thomas LPN - 02/13/2020 10:32 AM EDT Reason for acute visit follow up call: Weight gain (5lb) and RLE cellulitis Are symptoms improving/worsening/same? Swelling is mildly improved in RLE and pain has decreased from a 7 on pain scale with activity down to 5 or 6 today. Pain level remains a 4 at rest. Her leg is warm to touch today, not hot. Weight is down 1lb today at 324.0 Was a new med or new treatment ordered at the time of acute visit by provider? Lasix 60 mg twice daily for three days and doxycycline 100 mg bid x 10 days - take as ordered. Was med started? Doxycyline was started yesterday, but she did not increase Lasix because she "wanted a good nights rest", but will increase Lasix to 60 mg bid x 3 day beginning today. Any labs/tests results to follow up on? No labs or testing done during acute visit. Remind patient of [facility] number: Provided call back number Does this follow up call require escalation to RNCM/RMC/PCP: A follow up call is scheduled for 02/14/20 at 10:00 am to assess symptoms. Routed To Blaire Jose RN, CM as FYI. documented in this encounter Plan of Treatment Upcoming Encounters Date Type Specialty Care Team Description 02/26/2020 Office Visit Cardiology Rey Woodall MD [address] [place] [address] [phone] 02/27/2020 Imaging Radiology 03/03/2020 [facility] Visit [facility] Brooke Jose RN [address] [place] [address] [phone] 03/05/2020 Office Visit Pharmacy [facility] [place] [address] [place] [address] 03/07/2020 Office Visit Orthopedics Zack Teague, DO [address] [place] [address] [phone] 03/24/2020 Home Visit Family Medicine Mira Duong, [facility] [employer] [address] [place] [address] [phone] 05/08/2020 Office Visit Family Medicine Kevin Whiteside, DO [address] [place] [address] [phone] 06/03/2020 Office Visit Dermatology Apple Kaminski MD 200 [facility] [place] [address] [phone] 07/11/2020 Imaging Radiology 11/27/2020 Office Visit Pulmonary Celsa Tafoya CRNP [address] [place] [address] [phone] Health Maintenance Due Date Last Done Comments [...] Documents on File Type Date Recorded Patient Morning Caregiver Expl 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
--- OUTSIDE RECORDS SUMMARY | 2023-06-01 05:26 | External Medical Summary | Summary of Care ---
Author Name Unknown Organization [place] [address] Care Team Providers Care Multimedia Technician Name Role Phone Kevin Whiteside DO Primary Care Provider Reason for Visit * Reason Comments [facility]: Acute Encounter Details Date Type Department Care Team Description 02/19/2020 Telephone [facility], [facility] 132 [facility] [place] [address] [facility] Nurse [facility] 132 [place] [address] [phone] [facility]: Acute Allergies Active Allergy Reactions Severity Noted Date Comments Pollen 05/18/2019 Heparin 09/04/2009 Heparin Induced Thrombocytopenia Empagliflozin Other (Please comment) Medium 05/17/2018 3 yeast infections in 6 weeks after starting Morphine And Related 09/16/1997 Hallucinations Tetanus Toxoid Other (Please comment) 06/15/2011 Passed out documented as of this encounter (statuses as of 02/19/2020) Medications Medication Sig Dispensed Refills Start Date [...] 3 08/30/2018 Active Blood Glucose Monitoring Suppl (OneTrueFan ULTRA 2) w/Device KIT Use to test [...] omyalgia,Moderate episode of recurrent major depressive disorder ([facility]),Primary osteoarthritis of both knees Take 1 Cap [...] BEFORE BREAKFAST OR OTHER MEDS 90 Tab 12/18/2019 Active levothyroxine (LEVOXYL) 25 MCG TabletIndications:Po [...] 400 mg by mouth daily. 90 Tab 12/18/2019 Active Glucose Blood (ONETOUCH ULTRA BLUE) [...] tab daily 45 Tab 1 01/31/2020 Active doxycycline hyclate 100 MG Capsule Take 1 Cap by mouth 2 times a day for 10 days. Take for 7 days 20 Cap 0 02/12/2020 0 Active Hospital, Clinic, or Other Facility Administered Medication Ordered Dose Route Frequency Start Date End Date Status levalbuterol (XOPENEX) inhalation solution 0.63 mgIndications:Wheezing 0.63 mg NEBULIZER Q4H PRN 09/12/2019 Ac tive documented as of this encounter (statuses as of 02/19/2020) Active Problems Problem Noted Date Uncontrolled type [...] 10/14/2014 Overview: ICD-10 update of inactive term [place] filter in place 08/19/2014 History of pulmonary [...] as of this encounter (statuses as of 02/19/2020) Resolved Problems Problem Noted Date Resolved Date [...] as of this encounter (statuses as of 02/19/2020) Immunizations Name Administration Dates Next Due Pneumococcal [...] have Coronavirus / COVID-19? No / Unsure 02/19/2020 8:22 AM EDT documented as of this encounter Miscellaneous Notes * Telephone Encounter - Brianna Luther RN - 02/19/2020 8:18 AM EDT [facility] human resources services specialist Acute Call Date: 02/19/2020 Time: 8:18 AM Name: Stephanie Camp : 1955 Caller: patient Relationship to No chief complaint on file. HPI: Stephanie Camp is a 64 year old old female that is calling [facility] to report cellulitis is back in right red now farther up leg and splotchy and painful now has fluid in left foot and ankle Has gained weight back that she has last ROS: Musculoskeletal/Extremities ROS: Positive for redness right leg and swelling right leg and left foot and ankle Nursing Assessment: Patient's chief complaint for this call: Edema Location of edema: Leg(s) below knees Describe patient's edema: Worsened from baseline Edema improves with: nothing History of blood clot? (e.g., deep vein thrombosis or pulmonary embolism) No Patient currently has the following symptoms: Warmth in extremity and Discoloration of extremity Patient previously told they have heart failure or congestive heart failure:Yes Patient weighs self at same time each day: Yes Weight gain in the past 24 hours: No Weight gain in the past week: Yes Patient weighs self at the same time each day: Yes Patient takes a 'dry weight' (prior to eating/drinking): Yes Number of doses of diuretic medication patient has missed in the past week: no Patient has increased consumption of salty foods in the past 3 days: No Patient has a diuretic titration protocol (DTP): No medical safety director the patient has seen in the past 48 hours: Not seen Pain Has pain Pain level: varies Location: right lower leg Quality of Pain: aching Does the pain radiate: No Baseline Assessment [...] Unknown COPD exacerbation symptoms: Unknown Reinforcement Education: Patient is on antibiotic for cellulitis, but it is getting worse Treatment/Plan: (need to report) Level of call: Acute Appointment scheduled for same day: Yes Physician Provider Name: Dr. Kendrick Treatment plan until appointment: see above Call back instructions provided to patient. documented in this encounter Plan of Treatment Upcoming Encounters Date Type Specialty Care Team Description 02/19/2020 [facility] Lexus Kendrick, [address] [place] [address] [phone] 02/26/2020 Office Visit Cardiology Rey Woodall MD [address] [place] [address] [phone] 03/03/2020 [facility] Visit [facility] Brooke Jose RN [address] [place] [address] [phone] 03/05/2020 Office Visit Pharmacy [facility] [address] [place] [address] 03/07/2020 Office Visit Orthopedics Zack Teague DO [address] [place] [address] [phone] 03/24/2020 Home Visit Family Medicine Mira Duong, [facility] [employer] [facility] [address] [place] [address] 05/08/2020 Office Visit Family Medicine Kevin Whiteside DO [address] [place] [address] 06/03/2020 Office Visit Dermatology Apple Kaminski MD 200 [place] [address] [phone] 07/11/2020 Imaging Radiology 11/27/2020 Office Visit Pulmonary Celsa Tafoya CRNP [address] [place] [address] [phone] Health Maintenance Due Date Last Done Comments [...] on File Type Date Recorded Patient Rug Measurer Expl 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
--- OUTSIDE RECORDS SUMMARY | 2023-06-01 05:26 | External Medical Summary | Summary of Care ---
Author Name Unknown Organization [place] [address] Care Team Providers Care Software Installer Name Role Phone Migue Whiteside DO Primary Care Provider Reason for Visit * Reason Comments eRx-Medication Refill Encounter Details Date Type Department Care Team Description 03/03/2020 Refill Family Practice [facility] [address] [place] [address] Migue Whiteside DO [address] [facility] [place] [address] [phone] Anxiety state; Restless legs syndrome Allergies Active Allergy Reactions Severity Noted Date Comments Pollen 05/18/2019 Heparin 09/04/2009 Heparin Induced Thrombocytopenia Empagliflozin Other (Please comment) Medium 05/17/2018 3 yeast infections in 6 weeks after starting Morphine And Related 09/16/1997 Hallucinations Tetanus Toxoid Other (Please comment) 06/15/2011 Passed out documented as of this encounter (statuses as of 03/04/2020) Medications Medication Sig Dispensed Refills Start Date [...] 3 8 Active Blood Glucose Monitoring Suppl (Neuro Kinetics ULTRA 2) w/Device KIT Use to test [...] type 2 nursing care encounter ([facility]),Uncontrolled type 2 diabetes mellitus with [...] A1c goal of 7.0%-8.0% ([facility]) Take 1 Cap by mouth [...] OTHER MEDS 90 Tab 3 0 Active DULoxetine (CYMBALTA) 30 MG CPEP Take 1 Cap by mouth daily. Take along with the 60mg dose for totally of 90mg daily. Do not cut, crush or chew 90 Cap 3 0 Active Magnesium Oxide 400 (241.3 mg) Tablet Take 400 mg by mouth daily. 90 Tab 3 0 Active Glucose Blood (Yi Fang EducationUCH ULTRA BLUE) STRP Check sugars 3-4 times daily 400 Strip 3 0 Active traZODone (DESYREL) 50 MG Tablet Take 1 Tab by mouth at bedtime. 90 Tab 3 0 Active rOPINIRole (REQUIP) 2 [...] PER DAY 10 mL 0 0 Active traMADol (ULTRAM) 50 MG [...] OTHER MEDS 90 Tab 1 0 Active clonazePAM (KLONOPIN) 0.5 MG TabletIndications:A nxiety state TAKE ONE TABLET BY MOUTH TWICE DAILY 60 Tab 0 0 Active clonazePAM (KLONOPIN) 0.5 MG TabletIndications:A nxiety state TAKE ONE TABLET BY MOUTH TWICE DAILY 60 Tab 0 0 03/04/20 20 Discontinued documented as of this encounter (statuses as of 03/04/2020) Active Problems Problem Noted Date Uncontrolled type [...] as of this encounter (statuses as of 03/04/2020) Resolved Problems Problem Noted Date Resolved Date [...] as of this encounter (statuses as of 03/04/2020) Immunizations Name Administration Dates Next Due Pneumococcal [...] have Coronavirus / COVID-19? No / Unsure 03/03/2020 10:21 AM EDT documented as of this encounter Miscellaneous Notes * Telephone Encounter - Migue Whiteside DO - 03/04/2020 4:16 PM EDT Signed Prescriptions: Disp Refills clonazePAM (KLONOPIN) 0.5 MG Tablet 60 Tab 0 Sig: TAKE ONE TABLET BY MOUTH TWICE DAILY Authorizing Provider: MIGUE WHITESIDE Refused Prescriptions: Disp Refills DULoxetine (CYMBALTA) 30 MG CPEP [Pharmacy*90 Cap 0 Sig: TAKE ONE CAPSULE BY MOUTH DAILY. take with 60mg dose for total of 90mg. d o not cut crush or chew Refused By: ENRICO MESA Reason for Refusal: Other (comment below) rOPINIRole (REQUIP) 2 MG Tablet [Pharmacy *90 Tab 0 Sig: TAKE ONE TABLET BY MOUTH THREE TIMES DAILY Refused By: ENRICO MESA Reason for Refusal: Other (comment below) * Telephone Encounter - Enrico Mesa [facility] - 03/04/2020 2:18 PM EDT Pending Prescriptions: Disp Refills clonazePAM (KLONOPIN) 0.5 MG Tablet [Phar*60 Tab 0 Sig: TAKE ONE TABLET BY MOUTH TWICE DAILY Refused Prescriptions: Disp Refills DULoxetine (CYMBALTA) 30 MG CPEP [Pharmacy*90 Cap 0 Sig: TAKE ONE CAPSULE BY MOUTH DAILY. take with 60mg dose for total of 90mg. do not cut crush or chew Refused By: MARY ANNE MESA Reason for Refusal: Other (comment below) rOPINIRole (REQUIP) 2 MG Tablet [Pharmacy *90 Tab 0 Sig: TAKE ONE TABLET BY MOUTH THREE TIMES DAILY Refused By: ENRICO MESA Reason for Refusal: Other (comment below) * Telephone Encounter - Enrico Mesa RPh - 03/04/2020 2:16 PM EDT I have reviewed the patients controlled substance dispensing history in the Prescription Drug Monitoring Program in compliance with the [facility] regulations before prescribing a controlled substance. PDMP checked on 03/04/2020. Patient requesting: Clonazepam 0.5mg, filled 01/29/20, for #60 for a 30 day supply. Other recent controlled medication fills: tramadol 50mg, filled 01/29/20, for #90 for a 30 day supply. Last Office/Telemedicine Visit: 02/25/2020 Next Office Visit: 05/08/2020 Scheduled Provider(s): Migue Whiteside, Date medication is due for refill: 02/28/20 Pharmacy: [facility] [id number] Is this request for a controlled [...] Review. Please approve if appropriate. Thanks, Enrico Mesa PharmD Clinical Pharmacist TelePharmacy 03/04/2020 2:16 PM * Telephone Encounter - Enrico Mesa RPh - 03/04/2020 2:14 PM EDT Non controls sent to [facility] previoulsly. Pending Prescriptions: Disp Refills clonazePAM (KLONOPIN) 0.5 MG Tablet [Phar*60 Tab 0 Sig: TAKE ONE TABLET BY MOUTH TWICE DAILY DULoxetine (CYMBALTA) 30 MG CPEP [Pharmac*90 Cap 0 Sig: TAKE ONE CAPSULE BY MOUTH DAILY. take with 60mg dose for total of 90mg. do not cut crush or chew rOPINIRole (REQUIP) 2 MG Tablet [Pharmacy*90 Tab 0 Sig: TAKE ONE TABLET BY MOUTH THREE TIMES DAILY Last Office/Telemedicine Visit: 02/25/2020 Next Office Visit: 05/08/2020 Scheduled Provider(s): Migue Whiteside, DO If no future appointments scheduled, and last appointment is greater than a year ago, please schedule patient for a follow-up appointment Last date the medication was ordered: 01/29/20, Pharmacy: [facility] [id number] Is this request for a controlled [...] Results Component Value Date/Time CREAT 1.4 (H) 02/21/2020 12:30 PM POTASSIUM 3.9 02/21/2020 12:30 PM TSH 0.88 03/14/2019 01:54 PM LDLCALC UNINTERPRETABLE RESULT 03/14/2019 01:54 PM LDLDIRECT 109 07/14/2017 12:35 PM ALT 18 07/20/2019 10:42 AM HGBA1C 7.3 (H) 01/23/2020 11:11 AM documented in this encounter Plan of Treatment Upcoming Encounters Date Type Specialty Care Team Description 03/05/2020 Office Visit Pharmacy [facility] [place] [address] [place] [address] 03/07/2020 Office Visit Orthopedics Zack Teague, [address] [place] [address] [address] [phone] 03/24/2020 Home Visit Family Medicine Mira Duong, [facility] [employer] [employer] [address] [place] [address] [phone] 04/15/2020 [facility] Visit [facility] Brooke Jose RN [address] [place] [address] [phone] 05/08/2020 Office Visit Family Medicine Migue Whiteside, [address] [place] [address] [phone] 05/28/2020 Office Visit Cardiology Marjorie Powell PA-C [address] [address] [address] [phone] 06/03/2020 Office Visit Dermatology Apple Kaminski MD [address] [facility] [place] [address] [phone] 07/11/2020 Imaging Radiology 11/27/2020 Office Visit Pulmonary Celsa Tafoya CRNP [address] [place] [address] [phone] Health Maintenance Due Date Last Done Comments [...] Diagnoses Diagnosis Anxiety state Anxiety state, unspecified Restless legs syndrome Restless legs syndrome (RLS) documented in this encounter Advance Directives Documents on File Type Date Recorded Patient Business Process Expert Expl 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
--- OUTSIDE RECORDS SUMMARY | 2023-06-01 05:26 | External Medical Summary | Summary of Care ---
Author Name Unknown Organization [place] [address] Care Team Providers Care Bucket Operator Name Role Phone Stevo Kevin Ocampomelinda Primary Care Provider Reason for Visit * Reason Comments Appointment reschedule Encounter Details Date Type Department Care Team Description 03/05/2020 [facility]phone [facility] [address] [facility] [address] [facility] [place] [address] Appointment (reschedule) Allergies Active Allergy Reactions Severity Noted Date Comments Pollen 05/18/2019 Heparin 09/04/2009 Heparin Induced Thrombocytopenia Empagliflozin Other (Please comment) Medium 05/17/2018 3 yeast infections in 6 weeks after starting Morphine And Related 09/16/1997 Hallucinations Tetanus Toxoid Other (Please comment) 06/15/2011 Passed out documented as of this encounter (statuses as of 03/05/2020) Medications Medication Sig Dispensed Refills Start Date [...] 3 08/30/2018 Active Blood Glucose Monitoring Suppl (PLASTIQTOUCH ULTRA 2) w/Device KIT Use to test [...] use of insulin ([facility]) Inject 1.5 mg under the [...] omyalgia,Moderate episode of recurrent major depressive disorder ([facility]),Primary osteoarthritis of both knees Take [...] as of this encounter (statuses as of 03/05/2020) Active Problems Problem Noted Date Uncontrolled type [...] as of this encounter (statuses as of 03/05/2020) Resolved Problems Problem Noted Date Resolved Date [...] as of this encounter (statuses as of 03/05/2020) Immunizations Name Administration Dates Next Due Pneumococcal [...] Telephone Encounter - Rose Barton RPh - 03/05/2020 8:14 AM EDT Patient Phone Numbers Spoke to patient via phone. Patient is rescheduled to 03/19. Rose Barton, Pharm D Clinical Pharmacist 03/05/2020, 8:16 AM * Telephone Encounter - Clementine Orellana OSA - 03/05/2020 7:21 AM EDT Pt calling requesting to reschedule appt for today. Call back with new appt date and time. documented in this encounter Plan of Treatment Upcoming Encounters Date Type Specialty Care Team Description 03/07/2020 Office Visit Orthopedics Zack Teague, [address] [address] [address] [phone] 03/19/2020 Office Visit Pharmacy [facility] [place] [address] [place] [address] 03/24/2020 Home Visit Family Medicine Mira Duong, [facility] [employer] [address] [place] [address] [phone] 04/15/2020 [facility] Visit [facility] Brooke Jose, RN [address] [address] [address] [phone] 05/08/2020 Office Visit Family Medicine Kevin Whiteside, [address] [place] [address] [phone] 05/28/2020 Office Visit Cardiology Marjorie Powell PA-C [address] [place] [address] 06/03/2020 Office Visit Dermatology Apple Kaminski MD [address] [facility], [place] [address] [phone] 07/11/2020 Imaging Radiology 11/27/2020 Office Visit Pulmonary [...] Documents on File Type Date Recorded Patient Monitor Technician Expl 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
--- OUTSIDE RECORDS SUMMARY | 2023-06-01 05:26 | External Medical Summary | Summary of Care ---
Author Name Unknown Organization [place] [address] Care Team Providers Care Office Manager Executive Assistant Name Role Phone Stevo Kevin Ocampomelinda Primary Care Provider Reason for Visit * Reason Comments [facility]: Maintenance chf exace rbation Encounter Details Date Type Department Care Team Description 02/12/2020 Telephone [facility], [facility] [address] [place] [address] Brooke Jose, RN [address] [place] [address] [phone] [facility]: Maintenance (chf exacer... Allergies Active Allergy Reactions Severity Noted Date Comments Pollen 05/18/2019 Heparin 09/04/2009 Heparin Induced Thrombocytopenia Empagliflozin Other (Please comment) Medium 05/17/2018 3 yeast infections in 6 weeks after starting Morphine And Related 09/16/1997 Hallucinations Tetanus Toxoid Other (Please comment) 06/15/2011 Passed out documented as of this encounter (statuses as of 02/20/2020) Medications Medication Sig Dispensed Refills Start Date [...] 3 08/30/2018 Active Blood Glucose Monitoring Suppl (Weeve ULTRA 2) w/Device KIT Use to test [...] insulin ([facility]) Inject 1.5 mg under the skin once a week. 15 mL 3 12/18/2019 Active Nortriptyline HCl (PAMELOR) 50 MG CapsuleIndications:F ibromyalgia Take 1 Cap by mouth at bedtime. 90 Cap 3 12/18/2019 Active gabapentin (NEURONTIN) 300 MG CapsuleIndications:T ype 2 diabetes mellitus with hemoglobin A1c goal of 7.0%-8.0% ([facility]) Take 1 Cap by mouth 3 [...] not cut, crush or chew 90 Cap 12/18/2019 Active Magnesium Oxide 400 (241.3 mg) Tablet Take 400 mg by mouth daily. 90 Tab 12/18/2019 Active Glucose Blood (VigixUCH ULTRA BLUE) STRP Check sugars 3-4 times daily 400 Strip 12/18/2019 Active traZODone (DESYREL) 50 MG Tablet Take 1 Tab by mouth at bedtime. 90 Tab 12/18/2019 Active rOPINIRole (REQUIP) 2 MG TabletIndications:Re stless legs syndrome Take 1 Tab by mouth at bedtime. 90 Tab 12/18/2019 Active metoprolol tartrate (LOPRESSOR) 25 MG [...] as of this encounter (statuses as of 02/20/2020) Active Problems Problem Noted Date Uncontrolled type [...] as of this encounter (statuses as of 02/20/2020) Resolved Problems Problem Noted Date Resolved Date [...] as of this encounter (statuses as of 02/20/2020) Immunizations Name Administration Dates Next Due Pneumococcal [...] Telephone Encounter - Marjorie Powell PA-C - 02/20/2020 7:44 AM EDT Chart reviewed Per prior messages, patient to proceed with DTP for 3 days at furosemide 60 mg BID. Pending response, can re-evaluate her regular diuretic dose next week at office visit. * Telephone Encounter - Brooke Jose RN - 02/12/2020 2:30 PM EDT Pt had 5lb wt gain [facility] implemented a one time DTP-increase lasix to 60mg bid x3 days Would you like to order a standing DTP? documented in this encounter Plan of Treatment Upcoming Encounters Date Type Specialty Care Team Description 02/26/2020 Office Visit Cardiology Rey Woodall MD [address] [address] [phone] 03/03/2020 Home Visit [facility] Brooke Jose RN [address] [address] [phone] 03/05/2020 Office Visit Pharmacy [facility] [address] [place] [address] 03/07/2020 Office Visit Orthopedics Zack Teague DO [address] [place] [address] [phone] 03/24/2020 Home Visit Family Medicine Mira Duong, [facility] [address] [place] [address] [phone] 05/08/2020 Office Visit Family Medicine Kevin Whiteside DO 132 [facility] [place] [address] [phone] 06/03/2020 Office Visit Dermatology Apple Kaminski MD [address] [place] [address] [phone] 07/11/2020 Imaging Radiology 11/27/2020 Office Visit Pulmonary [...] Documents on File Type Date Recorded Patient Event Planning Manager Expl 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
--- OUTSIDE RECORDS SUMMARY | 2023-06-01 05:26 | External Medical Summary | Summary of Care ---
Author Name Unknown Organization [place] [address] Care Team Providers Care Tongue And Groove Machine Setter Name Role Phone Migue Whiteside DO Primary Care Provider Reason for Visit * Reason Comments eRx-Medication Refill Encounter Details Date Type Department Care Team Description 02/27/2020 Refill Family Practice [facility] [address] [place] [address] Migue Whiteside DO [address] [facility] [place] [address] [phone] POSTSURGICAL HYPOTHYROID Allergies Active Allergy Reactions Severity Noted Date Comments Pollen 05/18/2019 Heparin 09/04/2009 Heparin Induced Thrombocytopenia Empagliflozin Other (Please comment) Medium 05/17/2018 3 yeast infections in 6 weeks after starting Morphine And Related 09/16/1997 Hallucinations Tetanus Toxoid Other (Please comment) 06/15/2011 Passed out documented as of this encounter (statuses as of 02/28/2020) Medications Medication Sig Dispensed Refills Start Date [...] 3 8 Active Blood Glucose Monitoring Suppl (TellWise ULTRA 2) w/Device KIT Use to test [...] 90 Tab 3 0 Active Glucose Blood (Seren PhotonicsTOUCH ULTRA BLUE) STRP Check sugars 3-4 times [...] OTHER MEDS 90 Tab 1 0 Active levothyroxine (LEVOXYL) 25 MCG TabletIndications:P ostsurgical hypothyroidism (at least 30 min prior to breakfast or other meds) 90 Tab 3 0 02/28/20 20 Discontinued Hospital, Clinic, or Other Facility Administered Medication Ordered Dose Route Frequency Start Date End Date Status levalbuterol (XOPENEX) inhalation solution 0.63 mgIndications:Wheezing 0.63 mg NEBULIZER Q4H PRN 09/12/2019 Ac tive documented as of this encounter (statuses as of 02/28/2020) Active Problems Problem Noted Date Uncontrolled type [...] 10/14/2014 Overview: ICD-10 update of inactive term [place] filter in place 08/19/2014 History of pulmonary [...] as of this encounter (statuses as of 02/28/2020) Resolved Problems Problem Noted Date Resolved Date [...] as of this encounter (statuses as of 02/28/2020) Immunizations Name Administration Dates Next Due Pneumococcal [...] Miscellaneous Notes * Telephone Encounter - Rebecca Esquivel RPh - 02/28/2020 12:21 PM EDT Signed Prescriptions: Disp Refills levothyroxine (LEVOXYL) 25 MCG Tablet 90 Tab 1 Sig: TAKE ONE TABLET BY MOUTH IN THE MORNING AT LEAST 30 MINUTES PRIOR TO BREAKFAST OR OTHER MEDSAuthorizing Provider: MIGUE WHITESIDE User: REBECCA ESQUIVEL documented in this encounter Plan of Treatment Upcoming Encounters Date Type Specialty Care Team Description 03/03/2020 Home Visit [facility] Brooke Jose, RN [address] [place] [address] [phone] 03/05/2020 [facility] [place] [facility] [place] [address] 03/07/2020 Office Visit Orthopedics Zack Teague, DO [address] [place] [id number] 03/24/2020 Home Visit Family Medicine Mira Duong, [facility] Audiology Director [address] [place] [address] [phone] 05/08/2020 Office Visit Family Medicine Migue Whiteside, DO 132 [facility] [place] [address] [phone] 05/28/2020 Office Visit Cardiology Marjorie Powell PA-C [address] [facility] [place] [address] [phone] 06/03/2020 Office Visit Dermatology Apple Kaminski MD [address] [facility] [place] [address] [phone] 07/11/2020 Imaging Radiology 11/27/2020 Office Visit Pulmonary Celsa Tafoya CRNP 132 [facility] [place] [id number] Health Maintenance Due Date Last Done Comments [...] on File Type Date Recorded Patient Marine Insurance Claim Examiner Expl 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
--- OUTSIDE RECORDS SUMMARY | 2023-06-01 05:26 | External Medical Summary ---
Author Name Unknown Address [address] [place] [address] Phone Organization [facility] [address] [facility] [place] [address] Laboratory Report Ordering Provider Test Date Status NIKOLAI MCCALLUM 02/21/2020 12:30:00 Final Observation Date Value Abnormality Reference (Units ) Status BUN 02/21/2020 14:38 27 Above high normal 6-20 (mg/dL) Final Creatinine 02/21/2020 14:38 1.4 Above high normal 0.5- 1.0 (mg/dL) Final E Glom Filt Rate 02/21/2020 14:38 38.3 Below low normal >60 Final Performing Location [facility] [address] [facility] [place] [address]
--- OUTSIDE RECORDS SUMMARY | 2023-06-01 05:26 | External Medical Summary | Summary of Care ---
Author Name Unknown Organization [place] [address] Care Team Providers Care Group Tester Name Role Phone Stevo Kevin Ocampomelinda Primary Care Provider Reason for Visit * Reason Comments Encounter Created in Error Encounter Details Date Type Department Care Team Description 01/24/2020 Scheduled Telephone [facility], [facility] [address] [facility] [place] [address] Brooke Jose, RN [address] [facility] [address] [phone] Benign hypertensive heart and kidney disease with [...] 3 08/30/2018 Active Blood Glucose Monitoring Suppl (Boloco ULTRA 2) w/Device KIT Use to test [...] 90 Tab 3 12/18/2019 Active Glucose Blood (MessageGearsUCH ULTRA BLUE) STRP Check sugars 3-4 times [...] PER DAY 10 mL 0 01/17/2020 Active Hospital, Clinic, or Other Facility Administered [...] 10/14/2014 Overview: ICD-10 update of inactive term [place] filter in place 08/19/2014 History of pulmonary [...] Encounters Date Type Specialty Care Team Description 02/27/2020 Imaging Radiology 03/03/2020 Home Visit [facility] Brooke Jose, RN 132 [facility] [place] [address] 03/05/2020 Office Visit Pharmacy [facility] [place] [address] [place] [address] 03/07/2020 Office Visit Orthopedics Zack Teague, DO [facility] [place] [address] [phone] 03/24/2020 Home Visit Family Medicine Mira Duong, [facility] Iap Displays Analyst [address] [place] [address] [phone] 05/08/2020 Office Visit Family Medicine Kevin Whiteside, [facility] [place] [address] [phone] 05/28/2020 Office Visit Cardiology Marjorie Powell PA-C [address] [facility] [place] [address] [phone] 06/03/2020 Office Visit Dermatology Apple Kaminski MD [address] [place] [address], [place] [address] [phone] 07/11/2020 Imaging Radiology 11/27/2020 Office Visit Pulmonary Celsa Tafoya CRNP 132 [facility] [place] [address] [phone] Health Maintenance Due Date Last Done Comments [...] Documents on File Type Date Recorded Patient Investment Officer Expl 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
--- OUTSIDE RECORDS SUMMARY | 2023-06-01 05:26 | External Medical Summary | Summary of Care ---
Author Name Unknown Organization [place] [address] Care Team Providers Care Gasser Machine Operator Name Role Phone Stevo Kevin Ocampomelinda Primary Care Provider Reason for Visit * Reason Comments [facility]: Maintenance return Encounter Details Date Type Department Care Team Description 03/03/2020 Home Visit [facility], [facility] [address] [facility] [place] [address] Brooke Jose, RN [address] [place] [address] [phone] Benign hypertensive heart and kidney disease with [...] as of this encounter (statuses as of 03/03/2020) Medications Medication Sig Dispensed Refills Start Date [...] 3 08/30/2018 Active Blood Glucose Monitoring Suppl (Draker ULTRA 2) w/Device KIT Use to test [...] 90 Tab 3 12/18/2019 Active Glucose Blood (MyngleUCH ULTRA BLUE) STRP Check sugars 3-4 times [...] PER DAY 10 mL 0 01/17/2020 Active clonazePAM (KLONOPIN) 0.5 MG TabletIndications:An xiety [...] OTHER MEDS 90 Tab 1 02/28/2020 Active Hospital, Clinic, or Other Facility Administered Medication Ordered Dose Route Frequency Start Date End Date Status levalbuterol (XOPENEX) inhalation solution 0.63 mgIndications:Whee zing 0.63 mg NEBULIZER Q4H PRN 09/12/2019 03/03/2020 Discontinued documented as of this encounter (statuses as of 03/03/2020) Active Problems Problem Noted Date Uncontrolled type [...] Overview: ICD-10 update of inactive term [place] filter in place 08/19/2014 History of [...] as of this encounter (statuses as of 03/03/2020) Resolved Problems Problem Noted Date Resolved Date [...] as of this encounter (statuses as of 03/03/2020) Immunizations Name Administration Dates Next Due Pneumococcal [...] Reading Time Taken Comments Blood Pressure 118/64 03/03/2020 10:28 AM EDT Pulse 85 03/03/2020 10:28 AM EDT Temperature 37 C (98.6 F) 03/03/2020 10:28 AM EDT Respiratory Rate 18 03/03/2020 10:28 AM EDT Oxygen Saturation 95% 03/03/2020 10:28 AM EDT Inhaled Oxygen Concentration - - Weight 143.8 kg (317 lb) 03/03/2020 10:28 AM EDT Height - - Body Mass Index 54.41 11/30/2019 9:05 AM EST documented in this encounter Progress Notes * Brooke Jose RN - 03/03/2020 10:20 AM EDT [facility] Media Relations Coordinator Monthly Visit Date: 03/03/2020 Time: 10:20 AM Name: Stephanie Camp : 1955 Current Concerns: return Edema improved Wt decreased to 317lbs, 331lbs at clinic last week Feeling ''much better'' ''I had a touch of food poisoning over the weekend.'' Had four or five bites of tv dinner followed by brief episode of n/v, felt better after emesis and had no more s/s bsgs were running higher when overloaded with fluid but are now improved, 145 this morning Is following Dr. Woodall's instructions: Lasix 80mg daily Kcl 10meq 3 days per week Will be going to clinic on Tuesday for BMP Has apt with surgeon on Tuesday to be reevaluated for L knee surgery Physical Exam: BP 118/64 | Pulse 85 | Temp 98.6 | Resp 18 | Wt 317 lbs (143.790kg) | BMI 54.41 kg/m | BSA 2.55 m | SaO2 95% | LMP 03/11/2003 Pain 0 Physical Exam Constitutional: Appearance: Normal appearance. HENT: Nose: Nose normal. Mouth/Throat: Mouth: Mucous membranes are moist. Neck: Musculoskeletal: Normal range of motion. Cardiovascular: Rate and Rhythm: Normal rate and regular rhythm. Pulses: Normal pulses. Heart sounds: Normal heart sounds. Pulmonary: Effort: Pulmonary effort is normal. No respiratory distress. Breath sounds: Wheezing (faint JUVENCIO) and rales (faint RLL) present. No rhonchi. Abdominal: General: Bowel sounds are normal. Palpations: Abdomen is soft. Musculoskeletal: Right lower leg: Edema present. Left lower leg: Edema present. Skin: General: Skin is warm and dry. Capillary Refill: Capillary refill takes less than 2 seconds. Neurological: General: No focal deficit present. Mental Status: She is alert and oriented to person, place, and time. Mental status is at baseline. Psychiatric: Mood and Affect: Mood normal. Behavior: Behavior normal. Thought Content: Thought content normal. Judgment: Judgment normal. Problems/Symptoms: Review of Systems Constitutional: Negative. HENT: Positive for postnasal drip. Eyes: Negative. Respiratory: Positive for shortness of breath (with ambulating longer distances without o2). Negative for cough (d/t ''allergies''). Cardiovascular: Positive for leg swelling (+1 b/l le pitting R>L). Gastrointestinal: Negative. Endocrine: Negative. Genitourinary: Negative. Musculoskeletal: Negative. Skin: Negative. Allergic/Immunologic: Negative. Neurological: Negative. Hematological: Negative. Psychiatric/Behavioral: Negative. Medication Reconciliation: (See medication list) Does patient take medications as ordered: Yes Patient Well Being: PHQ2/9: @[id number]@ No change in living situation Denies falls Feels depressed at times d/t covid isolation but has started seeing family again with some limitations so reports depression improving, family visited over weekend Advanced Care Planning: No documentation, was working on ACP with her brother but has not completed, got put on hold d/t covid restrictions, can not find her 5 Wishes booklet, provided with another one. Would want 911 and cpr along with a trial period of mechanical ventilation and feeding POLST completed with pt. Will have signed by provider and uploaded to Epic and returned to pt. Patient's Goals of Care: 1. L knee [...] for fluid overload-take only as advised [id number] Call [place] with wt of 320lbs Home Interventions Provided: Reinforced current Plan of Care, including self-management and medication regimen Updated Advanced Care Planning Note Updated Exacerbation Plan Patient's 'Red Flags': 1. Wt of 320lbs 2. Increased edema 3. Increased sob Patient Needs to Remember: Call [facility] with red flags Referrals Needed: none Follow Up: Patient encouraged to call the intake phone number for all urgent but not emergent issues. Is the patient new to [facility] within the last 30 days? No, Assess appropriateness for upcoming telehealth visits. Cancel telehealth visits & schedule home visit with care steam press operator(s)as indicated. Provider is in agreement with Plan of Care: Yes Scheduled to follow up with patient in [facility] in 3 weeks followed by RNCM in 3 weeks. Brooke Jose RN 03/03/2020 10:21 AM documented in this encounter Miscellaneous Notes * ACP (Advance Care Planning) - Brooke Jose RN - 03/03/2020 10:47 AM EDT No documentation, was working on ACP with her brother but has not completed, got put on hold d/t covid restrictions, can not find her 5 Wishes booklet, provided with another one. Would want 911 and cpr along with a trial period of mechanical ventilation and feeding POLST completed with pt. Will have signed by provider and uploaded to [employer] and returned to pt. documented in this encounter Plan of Treatment Upcoming Encounters Date Type Specialty Care Team Description 03/05/2020 Office Visit [facility] [place] [address] [address] 03/07/2020 Office Visit Orthopedics Zack Teague DO [address] [address] [phone] 03/24/2020 Home Visit Family Medicine Mira Duong, [facility] Facility Examiner [address] [place] [address] 04/15/2020 Home Visit [facility] Brooke Jose RN 132 [facility] [place] [address] [phone] 05/08/2020 Office Visit Family Medicine Kevin Whiteside DO [address] [place] [address] [phone] 05/28/2020 Office Visit Cardiology Marjorie Powell PA-C [facility] [place] [address] [phone] 06/03/2020 Office Visit Dermatology Apple Kaminski MD [address] [place] [address] [phone] 07/11/2020 Imaging Radiology 11/27/2020 Office Visit Pulmonary Celsa Tafoya CRNP 132 [facility] [place] [address] [phone] Health Maintenance Due Date Last Done Comments [...] Documents on File Type Date Recorded Patient Braid Pattern Setter Expl 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
--- OUTSIDE RECORDS SUMMARY | 2023-06-01 05:26 | External Medical Summary | Summary of Care ---
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, NYHA class 1 and CKD stage 3 (HCC) Lexus Kendrick DO [address] [facility] [place] [address] Encounter Details Date Type Department Care Team Description [facility] [place] [facility] [place] [address] Lexus Kendrick DO [address] [facility] [place] [facility] [place] [address] [phone] Acute venous stasis dermatitis of both lower extremities*; Benign hypertensive heart and kidney disease with [...] 3 08/30/2018 Active Blood Glucose Monitoring Suppl (DCMobility ULTRA 2) w/Device KIT Use to test [...] long-term current use of insulin ([facility]) Inject 1.5 mg under the skin once [...] to breakfast or other meds) 90 Tab 12/18/2019 Active DULoxetine (CYMBALTA) 30 MG CPEP Take 1 Cap by mouth daily. Take along with the 60mg dose for totally of 90mg daily. Do not cut, crush or chew 90 Cap 12/18/2019 Active Magnesium Oxide 400 (241.3 mg) Tablet Take 400 mg by mouth daily. 90 Tab 12/18/2019 Active Glucose Blood (Opanga NetworksUCH ULTRA BLUE) STRP Check sugars 3-4 times [...] mouth 2 times a day. 90 Tab 12/18/2019 Active omeprazole (PRILOSEC) 20 [...] Sign Reading Time Taken Comments Blood Pressure 130/70 02/19/2020 10:24 AM EDT Pulse 92 02/19/2020 10:24 AM EDT Temperature 37.1 C (98.8 F) 02/19/2020 10:24 AM E DT Respiratory Rate 16 02/19/2020 10:24 AM EDT Oxygen Saturation 97% 02/19/2020 10:24 AM EDT Inhaled Oxygen Concentration - - Weight - - Height - - Body Mass Index - - documented in this encounter Progress Notes * Lexus Kendrick DO - 02/19/2020 10:19 AM EDT [facility] Provider Visit Date: 02/19/2020 Time: 10:19 AM HPI: Stephanie Camp is a 64 year old female seen in her home for a provider visit. She is seen acutely today for LE edema and bilateral redness. She reports her weight up to 327 lbs when her baseline is about 319. States she is not drinking more. Taking lasix 60 mg daily. Developing some patches of redness on both shins and feet. Complete doxycycline. Looking forward to an appt with cardiology and orthopedics ROS: Review of Systems Constitutional: Negative for fever. HENT: Sneezing when 'they mow the grass!" Respiratory: Negative for wheezing. Mild increase in AVENDAÑO Cardiovascular: Positive for leg swelling. Negative for chest pain and palpitations. Gastrointestinal: Negative for abdominal pain, diarrhea, nausea and vomiting. Genitourinary: Negative for dysuria. Physical Exam: Filed Vitals: 02/19/20 1024 BP: 130/70 Pulse: 92 Resp: 16 Temp: 37.1 C (98.8 F) SpO2: 97% LMP 03/11/2003 Physical Exam Constitutional: General: She is not in acute distress. Appearance: She is obese. Cardiovascular: Rate and Rhythm: Regular rhythm. Heart sounds: No murmur. Pulmonary: Breath sounds: Normal breath sounds. No wheezing or rales. Abdominal: General: Bowel sounds are normal. Palpations: Abdomen is soft. Musculoskeletal: Comments: +1-2 pitting edema feet and ankles, less at shins Skin: General: Skin is warm and dry. Comments: Few patches shins and dorsum left foot of faintly fine papule and mild erythema. Neurological: Mental Status: She is oriented to person, place, and time. Assessment/Plan: 1. Acute venous stasis dermatitis of both lower extremities elevate legs. Use clobesatol bid until improved and daily moisturizing as well. She is currently being treated with doxy for cellulitis, recommend comlete that course. 2. 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 Home Interventions Provided: Oral Medications: Diuretic Titration Protocol Started Lab/Imaging Ordered bmp Lexus Kendrick DO documented in this encounter Plan of Treatment Upcoming Encounters Date Type Specialty Care Team Description 02/26/2020 Office Visit Cardiology Rey Woodall MD [address] [place] [address] [phone] 03/03/2020 [facility] Brooke Jose RN [address] [place] [address] [phone] 03/05/2020 Office Visit Pharmacy [facility] [place] [address] [facility] [place] [address] 03/07/2020 Office Visit Orthopedics Zack Teague, [address] [facility] [place] [address] [phone] 03/24/2020 Home Visit Family Medicine Mira Duong, Community Health Building Architectural Designer [address] [place] [address] [phone] 05/08/2020 Office Visit Family Medicine Kevin Whiteside, [address] [facility] [place] [address] [phone] 06/03/2020 Office Visit Dermatology Apple Kaminski MD [address] [place] [address], [place] [address] [phone] 07/11/2020 Imaging Radiology 11/27/2020 Office Visit Pulmonary Celsa Tafoya CRNP [address] [facility] [place] [address] [phone] Scheduled Referrals Name Type Priority Associated Diagnoses Orde r Schedule HOME PHLEBOTOMY REFERRAL OP Referral Within 10 days (routine) 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
--- OUTSIDE RECORDS SUMMARY | 2023-06-01 05:26 | External Medical Summary | Summary of Care ---
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 15 mL 3 12/18/2019 Active Nortriptyline HCl (PAMELOR) 50 MG CapsuleIndications:F ibromyalgia Take 1 Cap by mouth at bedtime. 90 Cap 3 12/18/2019 Active gabapentin (NEURONTIN) 300 MG CapsuleIndications:T ype 2 diabetes mellitus with hemoglobin A1c goal of 7.0%-8.0% ([facility]) Take 1 Cap by mouth 3 times [...] daily. 90 Tab 12/18/2019 Active Glucose Blood (WooMeUCH ULTRA BLUE) STRP Check sugars 3-4 times [...] Cardiology Rey Woodall MD [address] [address] [phone] 03/03/2020 [facility] Brooke Jose RN [address] [place] [address] [phone] 03/05/2020 Office Visit Pharmacy [facility] [place] [address] [facility] [place] [address] 03/07/2020 Office Visit Orthopedics Zack Teague, [address] [facility] [place] [address] [phone] 03/24/2020 Home Visit Family Medicine Mira Duong, Community Health Telescope Repairer [address] [place] [address] [phone] 05/08/2020 Office Visit Family Medicine Kevin Whiteside, [address] [facility] [place] [address] [phone] 06/03/2020 Office Visit Dermatology Apple Kaminski MD [address] [place] [address], [place] [address] [phone] 07/11/2020 Imaging Radiology 11/27/2020 Office Visit Pulmonary Celsa Tafoya CRNP [address] [facility] [place] [address] [phone] Scheduled Referrals Name Type Priority Associated Diagnoses [...] Documents on File Type Date Recorded Patient Blending Machine Operator Expl anation Advanced Directive 08/22/2009 [...]
--- OUTSIDE RECORDS SUMMARY | 2023-06-01 05:26 | External Medical Summary | Summary of Care ---
Author Name Unknown Organization [place] [address] Care Team Providers Care Boom Stick Worker Name Role Phone Migue Whiteside DO Primary Care Provider Reason for Visit * Reason Comments Follow Up six month return Encounter Details Date Type Department Care Team Description 02/26/2020 Office Visit Cardiology, [facility] [address] [place] [address] Rey Woodall MD [address] [facility] [place] [id number] Chronic diastolic congestive heart failure (HCC)* Allergies Active Allergy Reactions Severity Noted Date Comments Pollen 05/18/2019 Heparin 09/04/2009 Heparin Induced Thrombocytopenia Empagliflozin Other (Please comment) Medium 05/17/2018 3 yeast infections in 6 weeks after starting Morphine And Related 09/16/1997 Hallucinations Tetanus Toxoid Other (Please comment) 06/15/2011 Passed out documented as of this encounter (statuses as of 02/26/2020) Medications Medication Sig Dispensed Refills Start Date [...] 3 8 Active Blood Glucose Monitoring Suppl ([employer] ULTRA 2) w/Device KIT Use to [...] use of insulin ([facility]) Inject 1.5 mg under the skin once a week. 15 mL 3 0 Active Nortriptyline HCl (PAMELOR) 50 MG CapsuleIndications: Fibromyalgia Take 1 Cap by mouth at bedtime. 90 Cap 3 0 Active gabapentin (NEURONTIN) 300 MG CapsuleIndications: Type 2 diabetes mellitus with hemoglobin A1c goal of 7.0%-8.0% ([facility]) Take 1 Cap by mouth 3 [...] OTHER MEDS 90 Tab 3 0 Active levothyroxine (LEVOXYL) 25 MCG TabletIndications:P ostsurgical hypothyroidism (at least 30 min prior to breakfast or other meds) 90 Tab 3 0 Active DULoxetine (CYMBALTA) 30 MG CPEP Take 1 Cap by mouth daily. Take along with the 60mg dose for totally of 90mg daily. Do not cut, crush or chew 90 Cap 3 0 Active Magnesium Oxide 400 (241.3 mg) Tablet Take 400 mg by mouth daily. 90 Tab 3 0 Active Glucose Blood (KnowableUCH ULTRA BLUE) STRP Check sugars 3-4 times [...] per week 30 Tab 3 0 Active furosemide (LASIX) 40 MG TabletIndications:C [...] as of this encounter (statuses as of 02/26/2020) Active Problems Problem Noted Date Uncontrolled type [...] as of this encounter (statuses as of 02/26/2020) Resolved Problems Problem Noted Date Resolved Date [...] as of this encounter (statuses as of 02/26/2020) Immunizations Name Administration Dates Next Due Pneumococcal [...] Sign Reading Time Taken Comments Blood Pressure 142/74 02/26/2020 1:18 PM EDT Pulse 92 02/26/2020 1:18 PM EDT Temperature 36.9 C (98.4 F) 02/26/2020 1:18 PM ED T Respiratory Rate 18 02/26/2020 1:18 PM EDT Oxygen Saturation - - Inhaled Oxygen Concentration - - Weight 149.7 kg (330 lb) 02/26/2020 1:18 PM EDT Height - - Body Mass Index 56.64 11/30/2019 9:05 AM EST documented in this encounter Progress Notes * Rey Woodall MD - 02/26/2020 1:40 PM EDT February 26, 2020 Cardiology Follow Up Referring Provider: PCP: MIGUE WHITESIDE [address] [place] [address] [place] [id number] Chief Complaint: Orthostasis SUBJECTIVE: Stephanie Camp is a 64 year old year old female ongoing issue 1.Morbid obesity. 2.Obstructive sleep apnea on CPAP supplementation with nocturnal hypoxia on oxygen administration. 3.Hypertension. 4.Type 2 diabetes mellitus. 5.Chronic fibromyalgia. 6.History of bilateral pneumonia with extensive hospitalization in 2009 requiring extended intubation, Frank filter implantation with pulmonary embolus. 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 8. Chronic diastolic heart failure multiple factorial etiology 9. Chronic renal insufficiency Patient presents now in routine followup. Patient notes concerns with recent weight gain of nearly 20 lb. Patient did require reduction in diuretics and discontinuation of spironolactone recently due to renal insufficiency. Patient denies chest pains tachy palpitations syncope or near syncope. Patient isaware of increasing abdominal girth and lower extremity edema. No overt orthopnea. Patient has beenwearing oxygen a p.r.n. basis during the day and with CPAP at night Sugars have been improved and hemoglobin A1c decreasing. Chronic orthopedic issues remain limiting A Complete Review of 10 Systems is as stated above or negative. Patient Active Problem List Diagnosis Code Dyslipidemia E78.5 ELLIE (generalized anxiety disorder) F41.1 Postsurgical hypothyroidism E89.0 Nocturnal hypoxemia G47.34 ELISSA (obstructive sleep apnea) G47.33 Venous insufficiency I87.2 HTN, goal below 130/80 I10 History of pulmonary embolus (PE) Z86.711 Statin intolerance Z78.9 [place] filter in place Z95.828 Type 2 diabetes mellitus with hemoglobin A1c goal of 7.0%-8.0% ([facility]) E11.9 Fibromyalgia M79.7 Abnormality of gait R26.9 Restless legs syndrome G25.81 Gastroesophageal reflux disease with esophagitis K21.0 Body mass index (BMI) of 50.0 to 59.9 in adult ([facility]) Z68.43 Controlled substance agreement signed Z79.899 Chronic diastolic congestive heart failure ([facility]) I50.32 Thoracic back pain M54.6 Mild episode of recurrent major depressive disorder ([facility]) F33.0 Lumbar radiculopathy M54.16 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 135 Tab 3 Dulaglutide (TRULICITY) 1.5 MG/0.5ML SOPN Inject [...] 3 times a day. 270 Cap 3 insulin aspart (INSULIN ASPART) 100 UNIT/ML [...] and 2 LPM via NC with exertion. clobetasol propionate (TEMOVATE) 0.05 % ointment Apply topically to affected area 2 times a day. To affected area for up to two weeks. 60 g 1 docusate sodium (STOOL SOFTENER) 100 MG Capsule Take 100 mg by mouth 2 times a day as needed for Constipation. clonazePAM (KLONOPIN) 0.5 MG Tablet TAKE ONE TABLET BY MOUTH TWICE DAILY 60 Tab 0 insulin aspart (INSULIN ASPART) 100 UNIT/ML injection NOVOLOG Vial- USE IN INSULIN PUMP UP TO 200 UNITS PER DAY 10 mL 0 ACCU-CHEK SOFTCLIX LANCETS MISC Test blood sugar three or four times daily as directed 400 Each 3 Glucose Blood (ONETOUCH ULTRA BLUE) STRP Check sugars 3-4 times daily 400 Strip 3 rOPINIRole (REQUIP) 2 MG Tablet Take [...] with insulin 200 Box Dosing Unit 11 Blood Glucose Monitoring Suppl (ONETOUCH ULTRA 2) [...] daily 180 Each 5 OBJECTIVE/PHYSICAL EXAMINATION: BP 142/74 | Pulse 92 | Temp (Src) 98.4 (Tympanic) | Resp 18 | Wt 330 lbs (149.687kg) | BMI 56.64 kg/m | BSA 2.6 m | LMP 03/11/2003 General: no acute distress and stated age [...] 2019 normal sinus rhythm with normal tracing: ASSESSMENT: 63 year old year old female With morbid obesity Pickwickian syndrome chronic diastolic heart failure with recent difficulties with increasing abdominal girth and lower extremity edema. Diuretics previously reduced to increase renal insufficiency now improved but weight up nearly 20 lb PLAN: Increase furosemide to 80 mg p.o. q.day Single dose metolazone 2.5 mg prior to furosemide Add potassium 10 mg 3 days per week BMP 1 week DISPOSITION: Return as scheduled Rey Woodall MD [facility] Cardiology, [facility] [address] [place] [address] documented in this encounter Nursing Notes * Surendra Caldera RN - 02/26/2020 1:24 PM EDT Examination Room: room 16 Name: Stephanie Camp Date of : (1955). Reason for Visit: six month return Interim Hospitalization(s): denies Problems/Concerns: feet swollen; lower legs with possible cellulitis and was on antibiotics Chest Pain/SOB: AVENDAOÑ [facility] is a way you can talk to your provider online through e-mail. Would you like to sign up? I can activate it for you? ALREADY ACTIVE Room 16 documented in this encounter Plan of Treatment Upcoming Encounters Date Type Specialty Care Team Description 02/27/2020 Imaging Radiology 03/03/2020 [facility] Visit [facility] Brooke Jose RN [address] [place] [address] [phone] 03/05/2020 Office Visit Pharmacy [facility] [place] [address] [facility] [place] [address] 03/07/2020 Office Visit Orthopedics Zack Teague, DO [address] [facility] [place] [address] [phone] 03/24/2020 Home Visit Family Medicine Mira Duong, Community Health [employer]is[employer] Operator [address] [place] [address] [phone] 05/08/2020 Office Visit Family Medicine Migue Whiteside, DO [address] [facility] [place] [address] [phone] 05/28/2020 Office Visit Cardiology Marjorie Powell [facility]C [facility] [address] [phone] 06/03/2020 Office Visit Dermatology Apple Kaminski MD [address] [place] [address] [phone] 07/11/2020 Imaging Radiology 11/27/2020 Office Visit Pulmonary Celsa [facility] [address] [phone] Scheduled Orders Name Type Priority Associated Diagnoses Orde r Schedule BASIC METAB PANEL, BMP Lab Routine Chronic diastolic congestive heart failure (HCC) Expected: 02/26/2020 (Approximate), Expires: 05/26/2020 Health Maintenance Due Date Last Done Comments [...] on File Type Date Recorded Patient Assistant Gm Of Content & Delivery Expl 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
--- OUTSIDE RECORDS SUMMARY | 2023-06-01 05:27 | External Medical Summary | Summary of Care ---
Author Name Unknown Organization [place] [address] Care Team Providers Care Alternative Energy Technician Name Role Phone Carey Whitesidelidia Ocampomelinda Primary Care Provider Reason for Visit * Reason Comments [facility]: Acute cellulitis, chf exacerbation Encounter Details Date Type Department Care Team Description 02/12/2020 [facility] Visit [facility], [facility] [address] [facility] [place] [address] Brooke Jose, RN [address] [facility] [place] [address] [phone] Allergies Active Allergy Reactions Severity Noted Date Comments Pollen 05/18/2019 Heparin 09/04/2009 Heparin Induced Thrombocytopenia Empagliflozin Other (Please comment) Medium 05/17/2018 3 yeast infections in 6 weeks after starting Morphine And Related 09/16/1997 Hallucinations Tetanus Toxoid Other (Please comment) 06/15/2011 Passed out documented as of this encounter (statuses as of 02/12/2020) Medications Medication Sig Dispensed Refills Start Date [...] 3 08/30/2018 Active Blood Glucose Monitoring Suppl (Kuona ULTRA 2) w/Device KIT Use to test [...] type 2 nursing care encounter ([facility]),Uncontrolled type 2 diabetes mellitus with stage 3 chronic kidney disease, with long-term current use of insulin ([facility]) Inject 1.5 mg under the skin once a week. 15 mL 3 12/18/2019 Active Nortriptyline HCl (PAMELOR) 50 MG CapsuleIndications:F ibromyalgia Take 1 Cap by mouth at bedtime. 90 Cap 3 12/18/2019 Active gabapentin (NEURONTIN) 300 MG CapsuleIndications:T ype 2 diabetes mellitus with hemoglobin A1c goal of 7.0%-8.0% ([facility]) Take 1 Cap by mouth 3 times a day. 270 Cap 3 12/18/2019 Active DULoxetine (CYMBALTA) 60 MG CPEPIndications:Fibr omyalgia,Moderate episode of recurrent major depressive disorder ([facility]),Primary osteoarthritis of both knees Take 1 [...] as of this encounter (statuses as of 02/12/2020) Active Problems Problem Noted Date Uncontrolled type [...] 10/14/2014 Overview: ICD-10 update of inactive term [place] filter in place 08/19/2014 History of pulmonary [...] as of this encounter (statuses as of 02/12/2020) Resolved Problems Problem Noted Date Resolved Date [...] as of this encounter (statuses as of 02/12/2020) Immunizations Name Administration Dates Next Due Pneumococcal [...] have Coronavirus / COVID-19? No / Unsure 02/12/2020 1:48 PM EDT documented as of this encounter Last Filed Vital Signs Vital Sign Reading Time Taken Comments Blood Pressure 110/54 02/12/2020 1:41 PM EDT Pulse 90 02/12/2020 1:41 PM EDT Temperature 36.4 C (97.6 F) 02/12/2020 1:41 PM ED T Respiratory Rate 18 02/12/2020 1:41 PM EDT Oxygen Saturation 95% 02/12/2020 1:41 PM EDT Inhaled Oxygen Concentration - - Weight - - Height - - Body Mass Index - - documented in this encounter Progress Notes * Brooke Jose RN - 02/12/2020 1:01 PM EDT [facility] [address] StenographerInstrument Man Visit Date: 02/12/2020 Time: 1:04 PM Name: Stephanie Camp : 1955 Current Concerns: ongoing cellulitis, wt gain Pt contacted [facility]- wt gain 5lbs in 5 days (325lbs today- dry wt 319lbs.) BLE edema 1+/firm, abdominal distention (last BM today) Spironolactone d/c'd 01/[address] White d/t increased K+ (5.3 on 12/23) SOB @ baseline- using 2lO2 @ night, crackles to bilat bases Was seen on 01/[address] Kendrick for f/u after ER visit for cellulitis. Instructions were to complete Keflex. Completed antibiotic for RLE cellulitis last night Right ankle warm & redness has spread around foot and calf area (photo updated into Epic.) Areas of erythema are hot to touch Pain right ankle 8/10 when palpated, tolerable ache at rest. Dry "itchiness" to outer ankle/ foot. Using clobetasol prn Problems/Symptoms: Review of Systems Constitutional: Positive for appetite change (Decreased appetite X 3 days) and fatigue. Negative for chills and fever. HENT: Negative for congestion. Eyes: Negative. Respiratory: Positive for shortness of breath (Occurs with min exertion, relieved with rest). Negative for apnea and wheezing. Cardiovascular: Negative for chest pain and palpitations. Gastrointestinal: Positive for abdominal distention (Pt feels as though abd distented. Abd sot, obese, normal bowel sounds). Negative for blood in stool, constipation, diarrhea, nausea and vomiting. Endocrine: Negative for polyuria. 138 this am fasting, 176 before lunch. Insulin pump monitors BS. Genitourinary: Negative for flank pain, frequency and hematuria. Musculoskeletal: Positive for gait problem. Skin: Positive for color change. [place] dry skin to right anterior ankle, right outer ankle Allergic/Immunologic: Negative. Neurological: Positive for dizziness (Dizziness when lying flat or when going from sitting to standing- relieved with rest) and weakness (generalized, increased last 3 days). Negative for numbness and headaches. Hematological: Negative. Psychiatric/Behavioral: Negative. Physical Exam: Pulse 90 | Temp (Src) 97.6 (Tympanic) | Resp 18 | SaO2 95% | LMP 03/11/2003 Pain 4-RLE at rest, 7-RLE with ambulation Physical Exam Cardiovascular: Rate and Rhythm: Normal rate and regular rhythm. Pulses: Normal pulses. Heart sounds: Normal heart sounds. Pulmonary: Effort: Pulmonary effort is normal. Breath sounds: Rales (b/l bases) present. Abdominal: General: There is distension. Skin: General: Skin is warm and dry. Findings: Erythema (RLE-see pic in EPIC) present. Neurological: Mental Status: She is oriented to person, place, and time. Treatment/Plan: Acute Double lasix to 60mg bid x 3 days Doxycycline 100mg bid x10 days-take as ordered until all Continue daily wts Continue with 1.5L fluid restriction T/c sent to Dr. White and Dr. Woodall re: increased fluid status, inquired if he would like to orderDTP Above plan reviewed with pt, verbalized understanding Is able to pick scripts up from pharmacy herself Treatment/Plan: Standing Plan Meds as ordered/reviewed Ambulate with roller walker at ALL times o2 2lnc continuously cpap with 2l qhs Apap, tramadol and topical pain relievers for pain No NSAIDS Low na, ccd diet, 1.5L fluid restriction Ck bsgs and record tid Continue with insulin pump Home Interventions Provided: Oral Medications: Antibiotic, Diuretic Titration Protocol Started and Diuretic Titration Protocol Ordered Consulted PCP/Specialist Reinforced current Plan of Care, including self-management and medication regimen Updated Exacerbation Plan Patient's 'Red Flags': 1. fever 2. Increased redness in RLE 3. Wt up more tomorrow Patient Needs to Remember: Call [facility] with red flags Referrals Needed: none Follow Up: Patient encouraged to call the intake phone number for all urgent but not emergent issues. Scheduled [facility] Brooke Jose RN 02/12/2020 1:04 PM documented in this encounter Plan of Treatment Upcoming Encounters Date Type Specialty Care Team Description 02/13/2020 Home Visit [facility] Super[employer]ising [employer], [facility] [address] [place] [address] [phone] 02/26/2020 Office Visit Cardiology Rey Woodall MD [address] [place] [address] [phone] 03/03/2020 [facility] Visit [facility] Brooke Jose RN [address] [place] [address] [phone] 03/05/2020 Office Visit Pharmacy [facility] [place] [address] [place] [address] 03/06/2020 Office Visit Orthopedics Zack Teague DO [address] [place] [address] [phone] 03/24/2020 Home Visit Family Medicine Mira Duong, [facility] Segregator [address] [place] [address] [phone] 05/08/2020 Office Visit Family Medicine Kevin Whiteside DO [address] [place] [address] [phone] 06/03/2020 Office Visit Dermatology Apple Kaminski MD [address] [facility], [place] [address] [phone] 07/11/2020 Imaging Radiology 11/27/2020 Office Visit Pulmonary Celsa Tafoya CRNP [address] [place] [address] [phone] Health Maintenance Due Date Last Done Comments [...] Recorded Patient Manager New Product Expl 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
--- OUTSIDE RECORDS SUMMARY | 2023-06-01 05:27 | External Medical Summary | Summary of Care ---
Author Name Unknown Organization [place] [address] Care Team Providers Care Artistic Director Name Role Phone Kevin Whitesidemelinda Primary Care Provider Reason for Visit * Reason Comments [facility]: Maintenance Encounter Details Date Type Department Care Team Description 02/11/2020 Scheduled Telephone Care Coordination [address] [place] [address] [facility] Employment Consultant [address] [place], [place] [id number] Benign hypertensive heart and kidney disease with [...] as of this encounter (statuses as of 02/11/2020) Medications Medication Sig Dispensed Refills Start Date [...] 3 08/30/2018 Active Blood Glucose Monitoring Suppl ([employer] ULTRA 2) w/Device KIT Use to [...] use of insulin ([facility]) Inject 1.5 mg under the skin once a week. 15 mL 3 12/18/2019 Active Nortriptyline HCl (PAMELOR) 50 MG CapsuleIndications:F ibromyalgia Take 1 Cap by mouth at bedtime. 90 Cap 3 12/18/2019 Active gabapentin (NEURONTIN) 300 MG CapsuleIndications:T ype 2 diabetes mellitus with hemoglobin A1c goal of 7.0%-8.0% ([facility]) Take 1 Cap by mouth 3 times a day. 270 Cap 3 12/18/2019 Active DULoxetine (CYMBALTA) 60 MG CPEPIndications:Fibr omyalgia,Moderate episode of recurrent major depressive disorder ([facility]),Primary osteoarthritis of both knees Take 1 Cap [...] as of this encounter (statuses as of 02/11/2020) Active Problems Problem Noted Date Uncontrolled type [...] 10/14/2014 Overview: ICD-10 update of inactive term [place] filter in place 08/19/2014 History of pulmonary embolus (PE) 2013 Statin intolerance 07/16/2014 HTN, goal below 130/80 02/22/2014 Venous insufficiency 02/07/2013 ELISSA (obstructive sleep apnea) 09/16/2011 Overview: CPAP 11 cwp Mild, AHI 11.3 but with significant nocturnal hypoxemia Dicks Nocturnal hypoxemia 07/22/2011 Overview: Nocturnal ox 2 LPM 07/20/11 -- mean 84%, low 76%, time <89% 6:21 hours, TINY 47 [facility] Postsurgical hypothyroidism 06/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 documented as of this encounter (statuses as of 02/11/2020) Resolved Problems Problem Noted Date Resolved Date [...] as of this encounter (statuses as of 02/11/2020) Immunizations Name Administration Dates Next Due Pneumococcal [...] have Coronavirus / COVID-19? No / Unsure 02/11/2020 8:08 AM EDT documented as of this encounter Miscellaneous Notes * Telephone Encounter - Saira Salmon [facility] Employment Consultant - 02/11/2020 3:54 PM EDT LMOM with GG enrollment number. Encouraged pt to call now as she is close enough to turning 65 thatshe can start the process. Left G@H number as well if she has any question or other concerns. documented in this encounter Plan of Treatment Upcoming Encounters Date Type Specialty Care Team Description 02/26/2020 Office Visit Cardiology Rey Woodall MD [address] [place] [address] [phone] 03/05/2020 Office Visit Pharmacy [facility] [address] [place] [address] 03/06/2020 Office Visit Orthopedics Zack Teague, DO [address] [place] [address] [phone] 05/08/2020 Office Visit Family Medicine Kevin Whiteside, DO [address] [place] [address] [phone] 06/03/2020 Office Visit Dermatology Apple Kaminski MD [address] [place] [address], [place] [address] [phone] 07/11/2020 Imaging Radiology 11/27/2020 Office Visit Pulmonary Celsa Tafoya CRNP [address] [place] [address] [phone] Health Maintenance Due Date Last Done Comments [...] Documents on File Type Date Recorded Patient Cancer Spec Expl 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
--- OUTSIDE RECORDS SUMMARY | 2023-06-01 05:27 | External Medical Summary | Summary of Care ---
Author Name Unknown Organization [place] [address] Care Team Providers Care Care Analyst Name Role Phone Kevin Whiteside DO Primary Care Provider Reason for Visit * Reason Comments [facility]: Acute Encounter Details Date Type Department Care Team Description 02/04/2020 Telephone [facility], [facility] 132 [facility] [place] [address] [facility] [address] [place] [address] [phone] [facility]: Acute Allergies Active Allergy Reactions Severity Noted Date Comments Pollen 05/18/2019 Heparin 09/04/2009 Heparin Induced Thrombocytopenia Empagliflozin Other (Please comment) Medium 05/17/2018 3 yeast infections in 6 weeks after starting Morphine And Related 09/16/1997 Hallucinations Tetanus Toxoid Other (Please comment) 06/15/2011 Passed out documented as of this encounter (statuses as of 02/04/2020) Medications Medication Sig Dispensed Refills Start Date [...] 3 08/30/2018 Active Blood Glucose Monitoring Suppl (Carlypso ULTRA 2) w/Device KIT Use to test [...] episode of recurrent major depressive disorder ([facility]),Primary osteoarthritis of both knees Take 1 [...] tab daily 45 Tab 1 01/31/2020 Active cephalexin (KEFLEX) 500 MG Capsule Take 1 Cap by mouth 2 times a day for 3 days. 6 Cap 0 02/04/2020 0 Active Hospital, Clinic, or Other Facility Administered Medication Ordered Dose Route Frequency Start Date End Date Status levalbuterol (XOPENEX) inhalation solution 0.63 mgIndications:Wheezing 0.63 mg NEBULIZER Q4H PRN 09/12/2019 Ac tive documented as of this encounter (statuses as of 02/04/2020) Active Problems Problem Noted Date Uncontrolled type [...] as of this encounter (statuses as of 02/04/2020) Resolved Problems Problem Noted Date Resolved Date [...] as of this encounter (statuses as of 02/04/2020) Immunizations Name Administration Dates Next Due Pneumococcal [...] have Coronavirus / COVID-19? No / Unsure 01/28/2020 9:44 AM EDT documented as of this encounter Miscellaneous Notes * Addendum Note - Anel Chacon CRNP - 02/04/2020 4:02 PM EDT Addended by: ANEL CHACON on: 02/04/2020 04:02 PM Modules accepted: Orders * Telephone Encounter - Anel Chacon CRNP - 02/04/2020 4:01 PM EDT Thank you, this was sent TATIANA Menendez * Telephone Encounter - Maris Mariscal RN - 02/04/2020 3:37 PM EDT Call placed to the pt. States that she is taking 500 mg 2 x per day. Would like the script sent to [facility] * Telephone Encounter - Anel Chacon CRNP - 02/04/2020 3:22 PM EDT I contacted Dr. Kendrick who would like to have the patient extend the keflex another 3 days. Please confirm with the patient the dose and how many times a day she is taking and I will send the additional tabs to her pharmacy. Thank you TATIANA Menendez * Telephone Encounter - Maris Mariscal RN - 02/04/2020 12:38 PM EDT [facility] filter tender Acute Call Date: 02/04/2020 Time: 12:38 PM Name: Stephanie Camp : 1955 Caller: patient No chief complaint on file. HPI: Stephanie Camp is a 64 year old female that is calling [facility] to report ongoingcellulitis of the right foot. Nursing Assessment: Patient's chief complaint for this call: Pt evaluated by Dr. Kendrick for same on 01/28/20. Was prescribed a course of Keflex which she will complete tomorrow. Pt states that her LE is not any better than when she started the abx. Still has redness, swelling, and warm to touch. Pt reports not being able to get her shoe on. Pt states that the redness and swelling starts in her right foot and goes about [address] up her leg.States that her ankle her ankle is most sore. Denies any open areas or drainage. Pain Has pain Pain level: 4 Location: Right foot Quality of Pain: aching Does the pain radiate: No Baseline Assessment Able to performing ADLs at baseline (walking, daily tasks, etc.): Yes Chief Complaint is related to a chronic condition: No. Cellulitis Patient prescribed oxygen? Yes, 2L/min, using as prescribed. Medication Reconciliation: (See medication list) Received flu shot this season: Unknown Taking medication as ordered: Yes Medications ordered/taking to treat reason for call: Yes, PRN medication(s) Keflex - last day Treatment/Plan: (need to report) Level of call: Non-Acute Recommended treatment plan: Will send to care team to review for recommendations Call back instructions provided to patient. documented in this encounter Plan of Treatment Upcoming Encounters Date Type Specialty Care Team Description 02/26/2020 Office Visit Cardiology Rey Woodall MD [address] [place] [address] [phone] 03/05/2020 Office Visit Pharmacy [facility] [place] [address] [place] [address] 03/06/2020 Office Visit Orthopedics Zack Teague DO [address] [place] [address] [phone] 05/08/2020 Office Visit Family Medicine Kevin Whiteside DO [address] [place] [address] [phone] 06/03/2020 Office Visit Dermatology Apple Kaminski MD [address] [facility], [place] [id number] 07/11/2020 Imaging Radiology 11/27/2020 Office Visit Pulmonary [...] Documents on File Type Date Recorded Patient Engineer System Administrator Expl 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
--- OUTSIDE RECORDS SUMMARY | 2023-06-01 05:27 | External Medical Summary | Summary of Care ---
Author Name Unknown Organization [place] [address] Care Team Providers Care Gate Technician Name Role Phone Stevo Kevin Ocampomelinda Primary Care Provider Reason for Visit * Reason Comments [facility]: Maintenance chf exace rbation Encounter Details Date Type Department Care Team Description 02/12/2020 Telephone [facility], [facility] [address] [place] [address] Brooke Jose, RN [address] [place] [address] [phone] [facility]: Maintenance (chf exacer... Allergies [...] 3 08/30/2018 Active Blood Glucose Monitoring Suppl (VASS Technologies ULTRA 2) w/Device KIT Use to [...] insulin ([facility]) Inject 1.5 mg under the skin once a week. 15 mL 3 12/18/2019 Active Nortriptyline HCl (PAMELOR) 50 MG CapsuleIndications:F ibromyalgia Take 1 Cap by mouth at bedtime. 90 Cap 3 12/18/2019 Active gabapentin (NEURONTIN) 300 MG CapsuleIndications:T ype 2 diabetes mellitus with hemoglobin A1c goal of 7.0%-8.0% ([facility]) Take 1 Cap by mouth 3 times [...] daily. 90 Tab 12/18/2019 Active Glucose Blood (Rivulet CommunicationsUCH ULTRA BLUE) STRP Check sugars 3-4 times [...] PM EDT Pt had 5lb wt gain [facility] implemented a one time DTP-increase lasix to 60mg bid x3 days Would you like to order a standing DTP? documented in this encounter Plan of Treatment Upcoming Encounters Date Type Specialty Care Team Description 02/13/2020 Home Visit [facility] [employer] Manager, [facility] [address] [place] [address] [phone] 02/26/2020 Office Visit Cardiology Rey Woodall MD [address] [place] [address] [phone] 03/03/2020 [facility] Visit [facility] Brooke Jose RN [address] [place] [address] [phone] 03/05/2020 [facility] Visit [facility] [place] [address] [place] [address] 03/06/2020 Office Visit Orthopedics Zack Teague DO [address] [place] [address] [phone] 03/24/2020 Home Visit Family Medicine Mira Duong, [facility] Other Sports Official [address] [place] [address] 05/08/2020 Office Visit Family Medicine Kevin Whiteside DO [address] [place] [address] [phone] 06/03/2020 Office Visit Dermatology Apple Kaminski MD [address] [facility], [place] [address] [phone] 07/11/2020 Imaging Radiology 11/27/2020 Office Visit Pulmonary Cesla Tafoya CRNP [address] [place] [address] [phone] Health Maintenance Due Date Last Done Comments [...] Documents on File Type Date Recorded Patient Residence Supervisor Expl 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
--- OUTSIDE RECORDS SUMMARY | 2023-06-01 05:27 | External Medical Summary | Summary of Care ---
Author Name Unknown Organization [place] [address] Care Team Providers Care Superintendent Schools Name Role Phone Kevin Whiteside DO Primary Care Provider Reason for Visit * Reason Comments [facility]: Acute Encounter Details Date Type Department Care Team Description 02/04/2020 Telephone [facility], [facility] 132 [facility] [place] [address] [facility] [address] [facility] [place] [address] [phone] [facility]: Acute Allergies Active Allergy [...] 3 08/30/2018 Active Blood Glucose Monitoring Suppl (Meditech Solution ULTRA 2) w/Device KIT Use to [...] time <89% 6:21 hours, TINY 47 [facility] Postsurgical hypothyroidism 06/16/2011 ELLIE (generalized anxiety disorder) [...] Mariscal RN - 02/04/2020 12:38 PM EDT [facility] 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 HPI: Stephanie Camp is a 64 year old female that is calling [facility] Int[facility] to report ongoingcellulitis of [...] Rey Woodall MD [address] [place] [address] [phone] 03/05/2020 Office Visit Pharmacy [facility] [place] [address] [place] [address] 03/06/2020 Office Visit Orthopedics Zack Teague, DO [address] [place] [address] [phone] 05/08/2020 Office Visit Family Medicine Kevin Whiteside, [address] [place] [address] [phone] 06/03/2020 Office Visit Dermatology Apple Kaminski MD [address] [place] [address], [place] [address] [phone] 07/11/2020 Imaging Radiology 11/27/2020 Office Visit Pulmonary [...] on File Type Date Recorded Patient Technical Writer Expl 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
--- OUTSIDE RECORDS SUMMARY | 2023-06-01 05:27 | External Medical Summary | Summary of Care ---
Author Name Unknown Organization [facility] Address [place] [address] Care Team Providers Care Placement Manager Name Role Phone Kevin Whiteside DO Primary Care Provider Reason for Visit * Reason Comments [facility]: Maintenance Encounter Details Date Type Department Care Team Description 02/14/2020 Scheduled Telephone [facility], [facility] [address] [place] [address] Coordinator, [facility] [address] [place] [address] [phone] Allergies Active Allergy Reactions Severity Noted Date Comments Pollen 05/18/2019 Heparin 09/04/2009 Heparin Induced Thrombocytopenia Empagliflozin Other (Please comment) Medium 05/17/2018 3 yeast infections in 6 weeks after starting Morphine And Related 09/16/1997 Hallucinations Tetanus Toxoid Other (Please comment) 06/15/2011 Passed out documented as of this encounter (statuses as of 02/14/2020) Medications Medication Sig Dispensed Refills Start Date [...] 3 08/30/2018 Active Blood Glucose Monitoring Suppl (HourVilleTOUCH ULTRA 2) w/Device KIT Use to test [...] of insulin ([facility]) Inject 1.5 mg under the [...] 90 Tab 3 12/18/2019 Active Glucose Blood (Webinar.ruUCH ULTRA BLUE) STRP Check sugars 3-4 times [...] as of this encounter (statuses as of 02/14/2020) Active Problems Problem Noted Date Uncontrolled type [...] as of this encounter (statuses as of 02/14/2020) Resolved Problems Problem Noted Date Resolved Date [...] as of this encounter (statuses as of 02/14/2020) Immunizations Name Administration Dates Next Due Pneumococcal [...] Telephone Encounter - Lisandra Thomas LPN - 02/14/2020 12:16 PM EDT Reason for acute visit follow up call: Wt gain/cellulitis Are symptoms improving/worsening/same? Weight today is 323, a decrease of 2lb within 2 days. Her breathing is back to baseline. She denies any increased shortness of breath or cough. She is only using oxygen at night. She denies any abdominal bloating. Appetite is improving. Redness is fading on RLE and not increased in area. Edema is back to baseline in lower extremities. Her pain level is 0 at rest and up to a 5 with activity. She took tramadol once yesterday for pain. Denies any dizziness; she is using a walker. Was a new med or new treatment ordered at the time of acute visit by provider? Yes Was med started?Yes Can patient read back med/treatment instructions? Yes. She is continuing with Lasix 60 mg twicedaily today and tomorrow. She continues with Doxycycline 100 mg twice daily. Any labs/tests results to follow up on? No Remind patient of [facility] number? Yes. Provided call back number . Does this follow up call require escalation to RNCM/RMC/PCP? No. documented in this encounter Plan of Treatment Upcoming Encounters Date Type Specialty Care Team Description 02/26/2020 Office Visit Cardiology Rey Woodall MD [address] [place] [address] [place] [address] [phone] 03/03/2020 [facility] Visit [facility] Brooke Jose, RN [address] [facility] [place] [address] [phone] 03/05/2020 Office Visit Pharmacy [facility] [place] [address] [place] [address] 03/06/2020 Office Visit Orthopedics Zack Teague, [address] [place] [address] [phone] 03/24/2020 Home Visit Family Medicine Mira Duong, Community Health Account Supervisor [address] [place] [address] 05/08/2020 Office Visit Family Medicine Kevin Whiteside, [address] [place] [address] [phone] 06/03/2020 Office Visit Dermatology Apple Kaminski MD [address] [place] [address] [phone] 07/11/2020 Imaging Radiology 11/27/2020 Office Visit Pulmonary [facility]els[facility] [place] [address] [phone] Health Maintenance Due Date Last Done Comments [...] on File Type Date Recorded Patient Agricultural Education Professor Expl 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
--- OUTSIDE RECORDS SUMMARY | 2023-06-01 05:27 | External Medical Summary | Summary of Care ---
Author Name Unknown Organization [facility] [place] [address] Care Team Providers Care Deportation Examiner Name Role Phone Whiteside Kevin Ocampomelinda Primary Care Provider Reason for Visit * Reason Comments [facility]: Maintenance Encounter Details Date Type Department Care Team Description 02/10/2020 Scheduled Telephone [facility], [facility] 132 [facility] [place] [address] Linda Wilkinson, RN 132 [facility] [place] [address] [phone] Allergies Active Allergy Reactions Severity Noted Date Comments Pollen 05/18/2019 Heparin 09/04/2009 Heparin Induced Thrombocytopenia Empagliflozin Other (Please comment) Medium 05/17/2018 3 yeast infections in 6 weeks after starting Morphine And Related 09/16/1997 Hallucinations Tetanus Toxoid Other (Please comment) 06/15/2011 Passed out documented as of this encounter (statuses as of 02/10/2020) Medications Medication Sig Dispensed Refills Start Date [...] 3 08/30/2018 Active Blood Glucose Monitoring Suppl (BR SupplyUCH ULTRA 2) w/Device KIT Use to test [...] exertion. 0 11/28/2019 Active ACCU-CHEK [facility]CLIX [facility] Test blood sugar three or [...] 90 Tab 3 12/18/2019 Active Glucose Blood (JobTalentsTOUCH ULTRA BLUE) STRP Check sugars 3-4 times [...] as of this encounter (statuses as of 02/10/2020) Active Problems Problem Noted Date Uncontrolled type [...] 76%, time <89% 6:21 hours, TINY [address] [facility] Postsurgical hypothyroidism 06/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 documented as of this encounter (statuses as of 02/10/2020) Resolved Problems Problem Noted Date Resolved Date [...] as of this encounter (statuses as of 02/10/2020) Immunizations Name Administration Dates Next Due Pneumococcal [...] have Coronavirus / COVID-19? No / Unsure 02/10/2020 12:22 PM EDT documented as of this encounter Miscellaneous Notes * Telephone Encounter - Linda Wilkinson RN - 02/10/2020 12:14 PM EDT Phone call placed to pt to followup with RLE cellulitis. Pt states she continues to have the swelling to her leg and foot She has pain in this leg also. Today is the last day for the antibiotic. She has not been wearing shoes to note if they are still causing pain. She has been in slippers. She denies any redness further than ankle, but it remains to foot and ankle area. Pt denies any fevers/ chills Pt instructed to elevate leg as much as possible to reduce edema and to complete the course of antibiotic. CM scheduled to follow- up with pt tomorrow. Pt encouraged to call [facility] for any worsening or new concerns. documented in this encounter Plan of Treatment Upcoming Encounters Date Type Specialty Care Team Description 02/11/2020 Scheduled Telephone [facility] Brooke Jose RN [address] [place] [address] [phone] 02/26/2020 Office Visit Cardiology Rey Woodall MD [address] [place] [address] [phone] 03/05/2020 Office Visit Pharmacy [facility] [place] [address] [address] 03/06/2020 Office Visit Orthopedics Zack Teague DO [address] [place] [address] [phone] 05/08/2020 Office Visit Family Medicine Kevin Whiteside, [address] [place] [address] [phone] 06/03/2020 Office Visit Dermatology Apple Kaminski MD 200 [facility] [place] [address] [phone] 07/11/2020 Imaging Radiology 11/27/2020 Office Visit Pulmonary Celsa Tafoya CRNP [address] [place] [address] [phone] Health Maintenance Due Date Last Done Comments [...] Documents on File Type Date Recorded Patient Litigation Counsel Expl 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
--- OUTSIDE RECORDS SUMMARY | 2023-06-01 05:27 | External Medical Summary | Summary of Care ---
Author Name Unknown Organization [place] [address] Care Team Providers Care Endoscopy Rn Name Role Phone Stevo Kevin Ocampomelinda Primary Care Provider Reason for Visit * Reason Comments [facility]: Acute f/u cellulitis Encounter Details Date Type Department Care Team Description 02/07/2020 Scheduled Telephone [facility], [facility] [address] [place] [address] Brooke Jose, RN [address] [place] [address] [phone] Benign hypertensive heart and kidney disease with [...] as of this encounter (statuses as of 02/07/2020) Medications Medication Sig Dispensed Refills Start Date [...] 3 08/30/2018 Active Blood Glucose Monitoring Suppl (Kudos Knowledge ULTRA 2) w/Device KIT Use to test [...] of insulin ([facility]) Inject 1.5 mg under the skin once a week. 15 mL 3 12/18/2019 Active Nortriptyline HCl (PAMELOR) 50 MG CapsuleIndications:F ibromyalgia Take 1 Cap by mouth at bedtime. 90 Cap 3 12/18/2019 Active gabapentin (NEURONTIN) 300 MG CapsuleIndications:T ype 2 diabetes mellitus with hemoglobin A1c goal of 7.0%-8.0% ([facility]) Take 1 Cap by mouth 3 [...] daily. 90 Tab 12/18/2019 Active Glucose Blood (TurbineUCH ULTRA BLUE) STRP Check sugars 3-4 times [...] as of this encounter (statuses as of 02/07/2020) Active Problems Problem Noted Date Uncontrolled type [...] 10/14/2014 Overview: ICD-10 update of inactive term [place] filter in place 08/19/2014 History of pulmonary [...] as of this encounter (statuses as of 02/07/2020) Resolved Problems Problem Noted Date Resolved Date [...] as of this encounter (statuses as of 02/07/2020) Immunizations Name Administration Dates Next Due Pneumococcal [...] have Coronavirus / COVID-19? No / Unsure 02/07/2020 5:11 PM EDT documented as of this encounter Miscellaneous Notes * Telephone Encounter - Brooke Jose RN - 02/07/2020 4:51 PM EDT T/c to pt to f/u cellulitis RLE States mouth is sore and she has an upset stomach ''I always get like this when I'm on abx'' + for pain with wearing shoe and pressure to site Has only been taking keflex bid instead of tid d/t GI upset and sore mouth Her friend, Kiesha, who is a massage therapist was present during call States RLE has improved in that it is less red and no longer hot to touch Last day for abx is Tuesday T/c scheduled for Tuesday for f/u documented in this encounter Plan of Treatment Upcoming Encounters Date Type Specialty Care Team Description 02/10/2020 Scheduled Telephone [facility] Linda Wilkinson RN [address] [place] [address] [phone] 02/26/2020 Office Visit Cardiology Rey Woodall MD [address] [place] [address] [phone] 03/05/2020 Office Visit Pharmacy [facility] [place] [address] [place] [address] 03/06/2020 Office Visit Orthopedics Zack Teague DO [address] [place] [address] [phone] 05/08/2020 Office Visit Family Medicine Kevin Whiteside, [address] [place] [address] [phone] 06/03/2020 Office Visit Dermatology Apple Kaminski MD [address] [place] [address], [place] [address] [phone] 07/11/2020 Imaging Radiology 11/27/2020 Office Visit Pulmonary Celsa Tafoya CRNP [address] [place] [address] [phone] Health Maintenance Due Date Last Done Comments [...] Documents on File Type Date Recorded Patient Ed Case Manager Expl 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
--- OUTSIDE RECORDS SUMMARY | 2023-06-01 05:27 | External Medical Summary | Summary of Care ---
Author Name Unknown Organization [place] [address] Care Team Providers Care Weed Sprayer Name Role Phone Kevin Whiteside DO Primary Care Provider Reason for Visit * Reason Comments [facility]: Acute Encounter Details Date Type Department Care Team Description 02/04/2020 Telephone [facility], [facility] 132 [facility] [place] [address] [facility] 132 [place] [address] [phone] [facility]: Acute Allergies Active Allergy [...] 3 08/30/2018 Active Blood Glucose Monitoring Suppl (Healtheo360 ULTRA 2) w/Device KIT Use to test [...] recurrent major depressive disorder ([facility]),Primary osteoarthritis of both knees Take 1 [...] day. Would like the script sent to [facility]. * Telephone Encounter - Anel Miranda CRNP - 02/04/2020 3:22 PM EDT I [...] Mariscal RN - 02/04/2020 12:38 PM EDT [facility] at Home parent trainer Acute Call Date: 02/04/2020 Time: 12:38 PM Name: Stephanie Camp : 1955 Caller: patient No chief complaint on file. HPI: Stephanie Camp is a 64 year old female that is calling [facility] at Home Intake to report ongoingcellulitis of [...] Rey Woodall MD [address] [place] [address] [phone] 03/05/2020 Office Visit Pharmacy [facility] [place] [address] [place] [address] 03/06/2020 Office Visit Orthopedics Zack Teague, [address] [place] [address] [phone] 05/08/2020 Office Visit Family Medicine Kevin Whiteside, [address] [place] [address] [phone] 06/03/2020 Office Visit Dermatology Apple Kaminski MD [address] [place] [address], [place] [address] [phone] 07/11/2020 Imaging Radiology 11/27/2020 Office Visit Pulmonary Celsa Tafoya CRNP [address] [place] [address] [phone] Health Maintenance Due Date Last Done Comments [...] on File Type Date Recorded Patient Construction Stonemason Expl 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
--- OUTSIDE RECORDS SUMMARY | 2023-06-01 05:27 | External Medical Summary | Summary of Care ---
Author Name Unknown Organization [place] [address] Care Team Providers Care Facility Maintenance Supervisor Name Role Phone Stevo Kevin Ocampomelinda Primary Care Provider Reason for Visit * Reason Comments Medication Pre-auth Encounter Details Date Type Department Care Team Description 02/08/2020 Telephone Family Practice [facility] [address] [place] [address] Apple Kaminski MD [address] [place] [address] [phone] Medication Pre-auth Allergies Active Allergy Reactions Severity [...] 3 08/30/2018 Active Blood Glucose Monitoring Suppl (ONtheAIRTOUCH ULTRA 2) w/Device KIT Use to test [...] of recurrent major depressive disorder ([facility]),Primary osteoarthritis of both knees Take 1 Cap [...] 90 Tab 3 12/18/2019 Active Glucose Blood (ELIKEUCH ULTRA BLUE) STRP Check sugars 3-4 times [...] 10/14/2014 Overview: ICD-10 update of inactive term [place] filter in place 08/19/2014 History of pulmonary [...] Coronavirus / COVID-19? No / Unsure 02/12/2020 8:33 AM EDT documented as of this encounter Miscellaneous Notes * Telephone Encounter - Feng Henley LPN - 02/12/2020 12:58 PM EDT Filled out and fax form and medical records * Telephone Encounter - Feng Henley LPN - 02/11/2020 12:47 PM EDT Called They will fax a form to fill out and fax back with office notes * Telephone Encounter - Feng Henley LPN - 02/11/2020 10:53 AM EDT Called medicaid to int the prior auth could not get through t [phone] will need to try later No below is a non working number. * Telephone Encounter - Pop Martinez PHARM Tech - 02/08/2020 4:01 PM EDT Pharmacy calling to inform doctor that the pt's insurance will not pay for this medication without a completed prior authorization. . Please complete with the following information: Patient name: Stephanie Camp ID number: [id number] BIN number: [id number] PCN number: [id number] Group number: [id number] Subscriber name: Stephanie Camp Primary or Secondary Insurance:Primary Medication: Colchicine Reason for Request: not formulary Pharmacy: [facility] plan and phone number: [place] Medicaid [phone] Formulary alternatives: NA List of medications pt has tried and failed: NA Thank You, Pop Martinez Geodetic Surveyor [facility] 02/08/2020, 4:02 PM documented in this encounter Plan of Treatment Upcoming Encounters Date Type Specialty Care Team Description 02/12/2020 Home Visit [facility] Brooke Jose RN [address] [place] [address] [phone] 02/26/2020 Office Visit Cardiology Rey Woodall MD [address] [place] [address] [phone] 03/03/2020 Home Visit [facility] Brooke Jose RN [address] [place] [address] [phone] 03/05/2020 Office Visit Pharmacy [facility] [place] [address] [place] [address] 03/06/2020 Office Visit Orthopedics Zack Teague DO [address] [place] [address] [phone] 03/24/2020 Home Visit Family Medicine Mira Duong, Community Health Environmental Services Assistant [address] [place] [address] 05/08/2020 Office Visit Family Medicine Kevin Whiteside DO [address] [place] [address] [phone] 06/03/2020 Office Visit Dermatology Apple Kaminski MD [address] [place] [address], [place] [address] [phone] 07/11/2020 Imaging Radiology 11/27/2020 Office Visit Pulmonary Celsa Tafoya CRNP [address] [place] [address] [phone] Health Maintenance Due Date Last Done Comments [...] on File Type Date Recorded Patient Outside Energy Sales 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s Expl 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
--- OUTSIDE RECORDS SUMMARY | 2023-06-01 05:27 | External Medical Summary | Summary of Care ---
Author Name Unknown Organization [place] [address] Care Team Providers Care Behavioral Psychologist Name Role Phone Kevin Whiteside DO Primary Care Provider Reason for Visit * Reason Comments [facility]: Acute Encounter Details Date Type Department Care Team Description 02/12/2020 Telephone [facility], [facility] [address] [facility] [place] [id number] Shira iRder RN [address] [facility] [place] [address] [phone] [facility]: Acute Allergies Active Allergy [...] 3 08/30/2018 Active Blood Glucose Monitoring Suppl (Nimblefish TechnologiesUCH ULTRA 2) w/Device KIT Use to [...] major depressive disorder ([facility]),Primary osteoarthritis of both knees Take [...] 10/14/2014 Overview: ICD-10 update of inactive term [place] filter in place 08/19/2014 History of pulmonary embolus (PE) 2013 Statin intolerance 07/16/2014 HTN, goal below 130/80 02/22/2014 Venous insufficiency 02/07/2013 ELISSA (obstructive sleep apnea) 09/16/2011 Overview: CPAP 11 cwp Mild, AHI 11.3 but with significant nocturnal hypoxemia Dicks Nocturnal hypoxemia 07/22/2011 Overview: Nocturnal ox 2 LPM 07/20/11 -- mean 84%, low 76%, time <89% 6:21 hours, TINY [address] [facility] Postsurgical hypothyroidism 06/16/2011 ELLIE (generalized [...] encounter Miscellaneous Notes * Telephone Encounter - Anel Miranda CRNP - 02/12/2020 8:46 AM EDT Reviewed. Will await assessment from home visit today for further recommendations. 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 Relationship to No chief complaint on file. HPI: Stephanie Camp is a 64 year old old female that is calling [facility] at Home Intake to report Wt.Gain 5 lbs in 5 days. BLLE edema increased & abdominal distention( last BM -yesterday) Denies dietary indiscretions. SOB @ baseline- using O2 @ night. Taking meds including Lasix. Swelling not improved in the am. Completed antibiotic for R LE cellulitis 2 days ago. Right ankle warm & redness has spread around foot. Pain 7/10 X 2 days. Denies fevers or chills Nursing Assessment: Patient's chief complaint for this call: Edema , wt gain & returning Right ankle redness, warmth & pain Pain Has pain Pain level: 7 Location: Right LE Quality of Pain: aching Does the pain [...] treat reason for call: Yes, PRN medication(s) completed antibiotic Reinforcement Education: Elevate BLLE. Monitor for fevers & increasing redness TT Brooke Jose RNCM- she will see pt today @ 1:30 Message to G @ H Team Treatment/Plan: (need to report) Level of call:Acute Recommended treatment plan: as above Referral(s): Home Visit today @ 1:30 Brooke Jose CMRN Call back instructions provided to patient. documented in this encounter Plan of Treatment Upcoming Encounters Date Type Specialty Care Team Description 02/12/2020 [facility] Visit [facility] Brooke Jose RN [address] [place] [address] [phone] 02/26/2020 Office Visit Cardiology Rey Woodall MD [address] [place] [address] [phone] 03/03/2020 Home Visit [facility] Brooke Jose RN [address] [place] [address] [phone] 03/05/2020 Office Visit Pharmacy Danuta Ordaz [facility] [address] [place] [address] 03/06/2020 Office Visit Orthopedics Zack Teague DO [address] [place] [address] [phone] 03/24/2020 Home Visit Family Medicine Mira Duong, Community Health Plaster Patternmaker [address] [place] [address] [phone] 05/08/2020 Office Visit Family Medicine Kevin Whiteside DO [address] [place] [address] [phone] 06/03/2020 Office Visit Dermatology Apple Kaminski MD [address] [place] [address] [phone] 07/11/2020 Imaging Radiology 11/27/2020 Office Visit Pulmonary Celsa Tafoya CRNP [address] [place] [address] [phone] Health Maintenance Due Date Last Done Comments [...] on File Type Date Recorded Patient Leather Coater Expl 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
--- OUTSIDE RECORDS SUMMARY | 2023-06-01 05:27 | External Medical Summary | Summary of Care ---
Author Name Unknown Organization [place] [address] Care Team Providers Care Industrial Servicer Name Role Phone Kevin Whiteside DO Primary Care Provider Reason for Visit * Reason Comments [facility]: Acute Encounter Details Date Type Department Care Team Description 02/04/2020 Telephone [facility], [facility] 132 [facility] [place] [address] [facility] 132 [place] [address] [phone] [facility]: Acute Allergies Active Allergy [...] 3 08/30/2018 Active Blood Glucose Monitoring Suppl ([place] ULTRA 2) w/Device KIT Use to test [...] Mariscal RN - 02/04/2020 12:38 PM EDT [facility] 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 HPI: Stephanie Camp is a 64 year old female that is calling [employer] at Home Intake to report ongoingcellulitis of [...] Rey Woodall MD [address] [place] [address] [phone] 03/05/2020 Office Visit Pharmacy [facility] [place] [address] [place] [id number] 03/06/2020 Office Visit Orthopedics Zack Teague, [address] [place] [address] [phone] 05/08/2020 Office Visit Family Medicine Kevin Whiteside, [address] [place] [address] [phone] 06/03/2020 Office Visit Dermatology Apple Kaminski MD [address] [place] [address], [place] [address] [phone] 07/11/2020 Imaging Radiology 11/27/2020 Office Visit Pulmonary [...] Documents on File Type Date Recorded Patient Treatment Counselor Expl 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
--- OUTSIDE RECORDS SUMMARY | 2023-06-01 05:28 | External Medical Summary | Summary of Care ---
Author Name Unknown Organization [place] [address] Care Team Providers Care Digital Marketing Specialist Name Role Phone Kevin Whiteside DO Primary Care Provider Reason for Visit * Reason Comments Chronic Disease Management Medication Management Encounter Details Date Type Department Care Team Description 01/23/2020 Pharmacy ising at [facility] [address] 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, NYHA class 1 and CKD stage 3 ([facility])* Allergies Active Allergy Reactions Severity Noted Date Comments Pollen 05/18/2019 Heparin 09/04/2009 Heparin Induced Thrombocytopenia Empagliflozin Other (Please comment) Medium 05/17/2018 3 yeast infections in 6 weeks after starting Morphine And Related 09/16/1997 Hallucinations Tetanus Toxoid Other (Please comment) 06/15/2011 Passed out documented as of this encounter (statuses as of 01/23/2020) Medications Medication Sig Dispensed Refills Start Date [...] 3 08/30/2018 Active Blood Glucose Monitoring Suppl (BlaBlaCarUCH ULTRA 2) w/Device KIT Use to test [...] via NC with exertion. 0 11/28/2019 Active traMADol (ULTRAM) 50 MG TabletIndications:Ch ronic pain syndrome Take 1 Tab by mouth every 8 hours as needed for Pain, Severe. 90 Tab 0 12/10/2019 Active ACCU-CHEK SOFTCLIX LANCETS MISC Test blood [...] a week. 15 mL 3 12/18/2019 Active colchicine 0.6 MG TabletIndications:Le ukocytoclastic vasculitis ([facility]) Take 1/2 tab daily 45 Tab 3 12/18/2019 Active Nortriptyline HCl (PAMELOR) 50 [...] daily. 90 Tab 12/18/2019 Active Glucose Blood (BlaBlaCarUCH ULTRA BLUE) STRP Check sugars 3-4 times [...] by mouth daily. 90 Cap 12/18/2019 Active clonazePAM (KLONOPIN) 0.5 MG TabletIndications:An xiety state TAKE ONE TABLET BY MOUTH TWICE DAILY 60 Tab 0 01/01/2020 Active insulin aspart (INSULIN ASPART) 100 UNIT/ML injection NOVOLOG Vial- USE IN INSULIN PUMP UP TO 200 UNITS PER DAY 10 mL 0 01/17/2020 Active furosemide (LASIX) 40 MG TabletIndications:Ch ronic diastolic congestive heart failure (HCC) Take 1.5 Tabs by mouth daily. 135 Tab 3 01/23/2020 Active Hospital, Clinic, or Other Facility Administered Medication Ordered Dose Route Frequency Start Date End Date Status levalbuterol (XOPENEX) inhalation solution 0.63 mgIndications:Wheezing 0.63 mg NEBULIZER Q4H PRN 09/12/2019 Ac tive documented as of this encounter (statuses as of 01/23/2020) Active Problems Problem Noted Date Uncontrolled type [...] as of this encounter (statuses as of 01/23/2020) Resolved Problems Problem Noted Date Resolved Date [...] as of this encounter (statuses as of 01/23/2020) Immunizations Name Administration Dates Next Due Pneumococcal [...] or suspected to have Coronavirus / COVID-19? Unable to assess 01/23/2020 11:10 AM EDT documented as of this encounter Progress Notes * Hortencia Masters [facility] - 01/23/2020 1:37 PM EDT [facility] Patient Phone Numbers Per LEXI Cox from 01/21 Complains of increased pain of BLE, R>L Has +2 edema of R and +1 of L States it feels that her feet are very tight - no redness, warmth, or open areas noted States took extra lasix 20mg on Tuesday (to equal 60mg) Weight last week was 319 lbs, weight today is 317 lbs.Lungs clear, abdomen soft. No increased SOB. D/C'd aldactone per Dr. White's instructions on 01/10 Was planning to get BMP done on Tuesday but agreed to go tomorrow instead. Nephrology reviewed and recommended that patient takes 60mg of lasix as new maintance dose. Spoke with patient. She did not weight this morning but swelling and symptoms are the same. Advised her that Nephrology is recommending and increase Lasix to 60 mg daily to help. She does have labs pending currently. Educated her to weigh daily as instructed. She is agreeable to plan. Updated med list. Will plan to follow up with pt on Tuesday. Hortencia Masters, PharmD, [facility] Clinical Pharmacist [facility] 01/23/2020,1:38 PM documented in this encounter Plan of Treatment Upcoming Encounters Date Type Specialty Care Team Description 01/24/2020 Scheduled Telephone [facility] Brooke Jose RN [address] [place] [address] [place] [address] [phone] 01/25/2020 [facility] [address] [place] [address] [phone] 02/04/2020 Office Visit Dermatology Apple Kaminski MD [address] [place] [address] [phone] 02/26/2020 Office Visit Cardiology Rey Woodall MD [address] [place] [address] [phone] 03/05/2020 Office Visit Pharmacy [facility] [place] [address] [place] [address] 03/06/2020 Office Visit Orthopedics Zack Teague, [address] [place] [address] [phone] 05/08/2020 Office Visit Family Medicine Kevin Whiteside, [address] [place] [address] [phone] 07/11/2020 Imaging Radiology 11/27/2020 Office Visit Pulmonary Celsa Tafoya CRNP [address] [place] [address] [phone] Health Maintenance Due Date Last Done Comments Pneumococcal Vaccine: Pediatrics (0 to 5 Years) and At-Risk Patients (6 to 64 Years) (3 of 3 - PCV13) 08/22/2010 08/22/2009, 06/15/2006 Zoster Vaccines (3 of 3) 01/02/2020 11/07/2019, 11/24 Yearly B-12 03/14/2020 03/14/2019, 05/16/2018 DIABETES-EYE EXAM 04/05/2020 04/05/2019, (Done elsewhere), 12/18/2009, Additional history exists DIABETES-HGBA1C EVERY 6 MONTHS 05/07/2020 11/07/2019, 08/09/2019, 03/14/2019, Additional history exists BREAST CANCER SCREENING DISCUSSION YEARLY AGES 40-75 07/10/2020 07/10/2019, 06/23/2018, 05/09/2015, Additional history exists DIABETES-FOOT EXAM 11/07/2020 11/07/2019, 0 01/01/2019, 12/29/2017, Additional history exists PAP SMEAR-EVERY 3 YRS,AGES [...] 1 and CKD stage 3 (HCC)- Primary documented in this encounter Advance Directives Documents on File Type Date Recorded Patient Soap Boiler Expl 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
--- OUTSIDE RECORDS SUMMARY | 2023-06-01 05:28 | External Medical Summary | Summary of Care ---
Author Name Unknown Organization [place] [address] Care Team Providers Care Delinquency Prevention Officer Name Role Phone Migue hWiteside DO Primary Care Provider Reason for Visit * Reason Comments eRx-Medication Refill Encounter Details Date Type Department Care Team Description 01/29/2020 Refill Family Practice [facility] [address] [place] [address] Migue Whiteside DO [address] [place] [address] [phone] Anxiety state; Chronic pain syndrome Allergies Active Allergy Reactions Severity Noted Date Comments Pollen 05/18/2019 Heparin 09/04/2009 Heparin Induced Thrombocytopenia Empagliflozin Other (Please comment) Medium 05/17/2018 3 yeast infections in 6 weeks after starting Morphine And Related 09/16/1997 Hallucinations Tetanus Toxoid Other (Please comment) 06/15/2011 Passed out documented as of this encounter (statuses as of 01/29/2020) Medications Medication Sig Dispensed Refills Start Date [...] 3 8 Active Blood Glucose Monitoring Suppl (Zyrra ULTRA 2) w/Device KIT Use to test [...] insulin ([facility]) Inject 1.5 mg under the skin once a week. 15 mL 3 0 Active colchicine 0.6 MG TabletIndications:L eukocytoclastic vasculitis ([facility]) Take 1/2 tab daily 45 Tab 3 0 Active Nortriptyline HCl (PAMELOR) 50 MG CapsuleIndications: Fibromyalgia Take 1 Cap by mouth at bedtime. 90 Cap 3 0 Active gabapentin (NEURONTIN) 300 MG CapsuleIndications: Type 2 diabetes mellitus with hemoglobin A1c goal of 7.0%-8.0% ([facility]) Take 1 Cap by mouth 3 times a day. 270 Cap 3 0 Active DULoxetine (CYMBALTA) 60 MG CPEPIndications:Fib romyalgia,Moderate episode of recurrent major depressive disorder ([facility]),Primary osteoarthritis of both knees Take 1 Cap [...] 90 Tab 3 0 Active Glucose Blood (Zyrra ULTRA BLUE) STRP Check sugars 3-4 times [...] PER DAY 10 mL 0 0 Active furosemide (LASIX) 40 MG TabletIndications:C hronic diastolic congestive heart failure (HCC) Take 1.5 Tabs by mouth daily. 135 Tab 3 0 Active clonazePAM (KLONOPIN) 0.5 MG TabletIndications:A nxiety state TAKE ONE TABLET BY MOUTH TWICE DAILY 60 Tab 0 0 Active traMADol (ULTRAM) 50 MG TabletIndications:C hronic pain syndrome TAKE ONE TABLET BY MOUTH EVERY EIGHT HOURS NEEDED FOR SEVERE PAIN 90 Tab 0 0 Active traMADol (ULTRAM) 50 MG TabletIndications:C hronic pain syndrome Take 1 Tab by mouth every 8 hours as needed for Pain, Severe. 90 Tab 0 0 01/29/20 20 Discontinued clonazePAM (KLONOPIN) 0.5 MG TabletIndications:A nxiety state TAKE ONE TABLET BY MOUTH TWICE DAILY 60 Tab 0 0 01/29/20 20 Discontinued Hospital, Clinic, or Other Facility Administered Medication Ordered Dose Route Frequency Start Date End Date Status levalbuterol (XOPENEX) inhalation solution 0.63 mgIndications:Wheezing 0.63 mg NEBULIZER Q4H PRN 09/12/2019 Ac tive documented as of this encounter (statuses as of 01/29/2020) Active Problems Problem Noted Date Uncontrolled type [...] as of this encounter (statuses as of 01/29/2020) Resolved Problems Problem Noted Date Resolved Date [...] as of this encounter (statuses as of 01/29/2020) Immunizations Name Administration Dates Next Due Pneumococcal [...] Telephone Encounter - Migue Whiteside DO - 01/29/2020 4:24 PM EDT Signed Prescriptions: Disp Refills clonazePAM (KLONOPIN) 0.5 MG Tablet 60 Tab 0 Sig: TAKE ONE TABLET BY MOUTH TWICE DAILY Authorizing Provider: MIGUE WHITESIDE traMADol (ULTRAM) 50 MG Tablet 90 Tab 0 Sig: TAKE ONE TABLET BY MOUTH EVERY EIGHT HOURS NEEDED FOR SEVERE PAIN Authorizing Provider: MIGUE WHITESIDE * Telephone Encounter - Derick Starr [facility] - 01/29/2020 1:29 PM EDT Pending Prescriptions: Disp Refills clonazePAM (KLONOPIN) 0.5 MG Tablet [Phar*60 Tab 0 Sig: TAKE ONE TABLET BY MOUTH TWICE DAILY traMADol (ULTRAM) 50 MG Tablet [Pharmacy *90 Tab 0 Sig: TAKE ONE TABLET BY MOUTH EVERY EIGHT HOURS NEEDED FOR SEVERE PAIN * Telephone Encounter - Derick Starr [facility] - 01/29/2020 1:24 PM EDT I have reviewed the patients controlled substance dispensing history in the Prescription Drug Monitoring Program in compliance with the [facility] regulations before prescribing a controlled substance. PDMP checked on 01/29/2020. Patient requesting: Clonazepam 0.5mg tablets, filled 01/01/20, for #60 for a 30 day supply. tramadol 50mg tablets, filled 12/11/19, for #90 for a 30 day supply. Other recent controlled medication fills: oxycodone 5mg tablets, filled 11/30/19, for #15 for a 3 day supply. prescribed at ED visit 11/30/19 Last Office/Telemedicine Visit: 12/10/2019 Next Office Visit: 05/08/2020 Scheduled Provider(s): Migue Whiteside, Date medication is due for refill: tramadol due on 01/11/20, clonazepam due on 01/30/20 Toxicology results: Results for orders placed or [...] in Results Review. Please approve if appropriate. documented in this encounter Plan of Treatment Upcoming Encounters Date Type Specialty Care Team Description 01/31/2020 Telemedicine Dermatology Apple Kaminski MD [address] [facility] [place] [address] [phone] 02/26/2020 Office Visit Cardiology Rey Woodall MD [address] [place] [phone] 03/05/2020 Office Visit Pharmacy [facility] [place] [address] [place] [phone] 03/06/2020 Office Visit Orthopedics Zack Teague, [address] [place] [address] 05/08/2020 Office Visit Family Medicine Migue Whiteside, [address] [place] [phone] 07/11/2020 Imaging Radiology 11/27/2020 Office Visit Pulmonary [...] Diagnoses Diagnosis Anxiety state Anxiety state, unspecified Chronic pain syndrome documented in this encounter Advance Directives Documents on File Type Date Recorded Patient Women'S Ministry Director Expl 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
--- OUTSIDE RECORDS SUMMARY | 2023-06-01 05:28 | External Medical Summary | Summary of Care ---
Author Name Unknown Organization [place] [address] Care Team Providers Care Embedded Systems Software Developer Name Role Phone Kevin Whiteside DO Primary Care Provider Reason for Visit * Reason Comments Emergency Department Follow-Up Encounter Details Date Type Department Care Team Description 01/28/2020 Telephone Family Practice [facility] [address] [place] [address] Kevin Whiteside DO [address] [facility] [place] [address] Emergency Department Follow-Up Allergies Active Allergy Reactions Severity Noted Date Comments Pollen 05/18/2019 Heparin 09/04/2009 Heparin Induced Thrombocytopenia Empagliflozin Other (Please comment) Medium 05/17/2018 3 yeast infections in 6 weeks after starting Morphine And Related 09/16/1997 Hallucinations Tetanus Toxoid Other (Please comment) 06/15/2011 Passed out documented as of this encounter (statuses as of 01/28/2020) Medications Medication Sig Dispensed Refills Start Date [...] Active colchicine 0.6 MG TabletIndications:Le ukocytoclastic vasculitis ([facility]) Take 1/2 tab daily 45 Tab 3 [...] daily. 90 Tab 12/18/2019 Active Glucose Blood (inWebo TechnologiesUCH ULTRA BLUE) STRP Check sugars 3-4 [...] as of this encounter (statuses as of 01/28/2020) Active Problems Problem Noted Date Uncontrolled type [...] as of this encounter (statuses as of 01/28/2020) Resolved Problems Problem Noted Date Resolved Date [...] as of this encounter (statuses as of 01/28/2020) Immunizations Name Administration Dates Next Due Pneumococcal [...] have Coronavirus / COVID-19? No / Unsure 01/25/2020 8:11 PM EDT documented as of this encounter Miscellaneous Notes * Telephone Encounter - Stephany Zelaya RN - 01/28/2020 9:26 AM EDT Patient is part of [employer]. Spoke with Brooke, they will follow up with her and schedule visits. I did speak with Stephanie, she will stay with [facility] and not schedule to come to the office at this time. documented in this encounter Plan of Treatment Upcoming Encounters Date Type Specialty Care Team Description 01/28/2020 Home Visit [facility] Lexus Kendrick, DO [address] [place] [address] [phone] 02/04/2020 Office Visit Dermatology Apple Kaminski MD [address] [place] [address] [phone] 02/26/2020 Office Visit Cardiology Rey Woodall MD [address] [place] [address] [phone] 03/05/2020 Office Visit Pharmacy [facility] [place] [address] [place] [address] 03/06/2020 Office Visit Orthopedics Zack Teague, DO [address] [place] [address] [phone] 05/08/2020 Office Visit Family Medicine Kevin Whiteside, [address] [place] [address] [phone] 07/11/2020 Imaging Radiology 11/27/2020 Office Visit Pulmonary [...] Documents on File Type Date Recorded Patient Seismograph 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
--- OUTSIDE RECORDS SUMMARY | 2023-06-01 05:28 | External Medical Summary | Summary of Care ---
Author Name Unknown Organization [place] [address] Care Team Providers Care Lift Truck Operator Name Role Phone Kevin Whiteside DO Primary Care Provider Reason for Visit * Reason Comments Emergency Department Follow-Up Encounter Details Date Type Department Care Team Description 01/28/2020 Telephone Family Practice [facility] [address] [place] [address] Kevin Whiteside DO [address] [facility] [place] [address] Emergency Department Follow-Up [...] Active colchicine 0.6 MG TabletIndications:Le ukocytoclastic vasculitis ([facility]) Take 1/2 tab daily 45 Tab 3 [...] daily. 90 Tab 12/18/2019 Active Glucose Blood (DiasporaUCH ULTRA BLUE) STRP Check sugars 3-4 times [...] 9:26 AM EDT Patient is part of [employer]. Spoke with Brooke, they will follow up with her and schedule visits. I did speak with Stephanie, she will stay with [facility] and not schedule to come to the office at this time. documented in this encounter Plan of Treatment Upcoming Encounters Date Type Specialty Care Team Description 02/04/2020 Office Visit Dermatology Apple Kaminski MD [address] [place] [address], [place] [address] [phone] 02/26/2020 Office Visit Cardiology Rey Woodall MD [address] [place] [address] [phone] 03/05/2020 Office Visit Pharmacy [facility] [address] [place] [address] 03/06/2020 Office Visit Orthopedics Zack Teague, DO [address] [place] [address] [phone] 05/08/2020 Office Visit Family Medicine Kevin Whiteside, [address] [place] [address] [phone] 07/11/2020 Imaging Radiology 11/27/2020 Office Visit Pulmonary Celsa Tafoya CRNP [address] [place] [address] [phone] Health Maintenance Due Date Last Done Comments [...] Documents on File Type Date Recorded Patient Television Reporter Expl 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
--- OUTSIDE RECORDS SUMMARY | 2023-06-01 05:28 | External Medical Summary | Summary of Care ---
Author Name Unknown Organization [place] [address] Care Team Providers Care Camp Manager Name Role Phone Whiteside Kevin Ocampomelinda Primary Care Provider Reason for Visit * Reason Comments [facility]: Acute Encounter Details Date Type Department Care Team Description 01/22/2020 Telephone [facility], [facility] [address] [facility] [place] [address] Brooke Jose, RN [address] [place] [address] [phone] [facility]: Acute Allergies Active Allergy [...] 3 08/30/2018 Active Blood Glucose Monitoring Suppl (FinanzCheckTOUCH ULTRA 2) w/Device KIT Use to test [...] 0 11/28/2019 Active traMADol (ULTRAM) 50 MG TabletIndications:C hronic [...] mL 3 12/18/2019 Active colchicine 0.6 MG TabletIndications:L eukocytoclastic vasculitis ([facility]) Take 1/2 [...] 3 12/18/2019 Active DULoxetine (CYMBALTA) 60 MG CPEPIndications:Fib romyalgia,Moderate [...] mL 12/18/2019 Active levothyroxine (LEVOXYL) 200 MCG TabletIndications:P ostsurgical hypothyroidism TAKE ONE TABLET BY MOUTH EVERY DAY AT LEAST 30 MINUTES BEFORE BREAKFAST OR OTHER MEDS 90 Tab 12/18/2019 Active levothyroxine (LEVOXYL) 25 MCG TabletIndications:P ostsurgical [...] daily. 90 Tab 12/18/2019 Active Glucose Blood (UpplicationUCH ULTRA BLUE) STRP Check sugars 3-4 times daily 400 Strip 12/18/2019 Active traZODone (DESYREL) 50 MG Tablet Take 1 Tab by mouth at bedtime. 90 Tab 12/18/2019 Active rOPINIRole (REQUIP) 2 MG TabletIndications:R estless [...] Cap 12/18/2019 Active clonazePAM (KLONOPIN) 0.5 MG TabletIndications:A nxiety state TAKE ONE TABLET BY MOUTH TWICE DAILY 60 Tab 0 01/01/2020 Active insulin aspart (INSULIN ASPART) 100 UNIT/ML injection NOVOLOG Vial- USE IN INSULIN PUMP UP TO 200 UNITS PER DAY 10 mL 0 01/17/2020 Active furosemide (LASIX) 40 MG TabletIndications:C hronic diastolic congestive heart failure (HCC) Take 1.5 Tabs by mouth daily. 135 Tab 3 01/23/2020 Active furosemide (LASIX) 40 MG TabletIndications:C hronic diastolic congestive heart failure (HCC) Take 1 Tab by mouth daily. 90 Tab 3 12/18/2019 0 Discontinue d(Refill) Hospital, Clinic, or Other Facility Administered Medication [...] encounter Miscellaneous Notes * Addendum Note - Juancarlos Gabriel RP - 01/23/2020 12:32 PM EDT Addended by: JUANCARLOS GABRIEL on: 01/23/2020 12:32 PM Modules accepted: Orders * Telephone Encounter - Juancarlos Gabriel RP - 01/23/2020 12:13 PM EDT Spoke with patient. She did not weight this morning but swelling and symptoms are the same. Advisedher that Nephrology is recommending and increase Lasix to 60 mg daily to help. She does have labs pending currently. Educated her to weigh daily as instructed. She is agreeable to plan. Updated med list. Will plan to follow up with pt later this week. * Telephone Encounter - Brooke Jose RN - 01/22/2020 2:10 PM EDT Patient was seen today for an acute visit today. Current Concerns: acute visit Complains of increased pain of BLE, R>L [...] Tuesday but agreed to go tomorrow instead. Can you please advise? Thank you, Brooke documented in this encounter Plan of Treatment Upcoming Encounters Date Type Specialty Care Team Description 01/23/2020 Pharmacy ising at [facility] [address] [place] [address] [phone] 01/24/2020 Scheduled Telephone [facility] Brooke Jose RN [address] [place] [address] [phone] 02/04/2020 Office Visit Dermatology Apple Kaminski MD [address] [place] [address] [place] [address] [phone] 02/26/2020 Office Visit Cardiology Rey Woodall MD [address] [place] [address] [phone] 03/05/2020 Office Visit Pharmacy [facility] [place] [address] [place] [address] 03/06/2020 Office Visit Orthopedics Zack Teague, [address] [place] [address] [phone] 05/08/2020 Office Visit Family Medicine Kevin Whiteside, [address] [place] [address] [phone] 07/11/2020 Imaging Radiology 11/27/2020 Office Visit Pulmonary Celsa Tafoya CRNP [address] [place] [address] [phone] Health Maintenance Due Date Last Done Comments [...] Documents on File Type Date Recorded Patient Soil Science Technical Officer Expl 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
--- OUTSIDE RECORDS SUMMARY | 2023-06-01 05:28 | External Medical Summary | Summary of Care ---
Author Name Unknown Organization [place] [address] Care Team Providers Care Reel Operator Name Role Phone Sergey Whitesidevor Lisa Primary Care Provider Encounter Details Date Type Department Care Team Description 01/25/2020 Result Scan Unspecified Department <No scans attached> [...] current use of insulin ([facility]) Inject 1.5 mg under the skin once a week. 15 mL 3 12/18/2019 Active colchicine 0.6 MG TabletIndications:Le ukocytoclastic vasculitis ([facility]) Take 1/2 tab daily 45 Tab [...] omyalgia,Moderate episode of recurrent major depressive disorder ([facility]),Primary osteoarthritis of both knees Take 1 [...] 90 Tab 3 12/18/2019 Active Glucose Blood (iSale GlobalUCH ULTRA BLUE) STRP Check sugars 3-4 times [...] mouth daily. 90 Cap 3 12/18/2019 Active clonazePAM (KLONOPIN) 0.5 MG TabletIndications:An [...] 01/31/2020 Telemedicine Dermatology Apple Kaminski MD [address] [facility] [place] [address] [phone] 02/26/2020 Office Visit Cardiology Rey Woodall MD [address] [place] [address] [phone] 03/05/2020 Office Visit Pharmacy [facility] [place] [address] [place] [address] 03/06/2020 Office Visit Orthopedics Zack Teague, [address] [place] [address] [phone] 05/08/2020 Office Visit Family Medicine Kevin Whiteside, [address] [place] [address] [phone] 07/11/2020 Imaging Radiology 11/27/2020 Office Visit Pulmonary Celsa Tafoya CRNP [address] [place] [address] [phone] Health Maintenance Due Date Last Done Comments [...] Date/Time Associated Diagnosis Comments RADIOLOGY SCANNED RESULT 01/25/2020 documented in this encounter Results * RADIOLOGY SCANNED RESULT (01/25/2020) Specimen Narrative Performed At documented in this encounter Advance Directives Documents on File Type Date Recorded Patient Stitch Marker Expl 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
--- OUTSIDE RECORDS SUMMARY | 2023-06-01 05:28 | External Medical Summary | Summary of Care ---
Author Name Unknown Organization [place] [address] Care Team Providers Care Cost Specialist Name Role Phone Sergey Whitesidevor Lisa Primary Care Provider Encounter Details Date Type Department Care Team Description 01/25/2020 Scan Encounter Unspecified Department <No scans attached> [...] use of insulin ([facility]) Inject 1.5 mg under the skin once a week. 15 mL 3 12/18/2019 Active colchicine 0.6 MG TabletIndications:Le ukocytoclastic vasculitis ([facility]) Take 1/2 tab daily 45 Tab 3 12/18/2019 Active Nortriptyline HCl (PAMELOR) 50 MG CapsuleIndications:F ibromyalgia Take 1 Cap by mouth at bedtime. 90 Cap 3 12/18/2019 Active gabapentin (NEURONTIN) 300 MG CapsuleIndications:T ype 2 diabetes mellitus with hemoglobin A1c goal of 7.0%-8.0% ([facility]) Take 1 Cap by mouth 3 times a day. 270 Cap 3 12/18/2019 Active DULoxetine (CYMBALTA) 60 MG CPEPIndications:Fibr omyalgia,Moderate episode of recurrent major depressive disorder ([facility]),Primary osteoarthritis of both knees Take 1 Cap [...] 90 Tab 3 12/18/2019 Active Glucose Blood (FeniksUCH ULTRA BLUE) STRP Check sugars 3-4 times [...] Description 01/28/2020 Home Visit [facility] AroldoLexus, DO [address] [place] [address] [phone] 02/04/2020 Office Visit Dermatology Apple Kaminski MD [address] [place] [address] [phone] 02/26/2020 Office Visit Cardiology Rey Woodall MD [address] [place] [address] [phone] 03/05/2020 Office Visit Pharmacy [facility] [address] [place] [address] 03/06/2020 Office Visit Orthopedics Zack Teague, [address] [place] [address] [phone] 05/08/2020 Office Visit Family Medicine Kevin Whiteside, [address] [place] [address] [phone] 07/11/2020 Imaging Radiology 11/27/2020 Office Visit Pulmonary Celsa Tafoya CRNP [address] [place] [address] [phone] Health Maintenance Due Date Last Done Comments [...] Documents on File Type Date Recorded Patient Boatbuilder Wood Expl 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
--- OUTSIDE RECORDS SUMMARY | 2023-06-01 05:28 | External Medical Summary | Summary of Care ---
Author Name Unknown Organization [place] [address] Care Team Providers Care Attending Pathologist Name Role Phone Whiteside Kevin Ocampomelinda Primary Care Provider Reason for Visit * Reason Comments [facility]: Maintenance Encounter Details Date Type Department Care Team Description 01/28/2020 Telephone [facility] [address] [place], [place] [id number] Services, Scheduling [address] [place] [address] [facility]: Maintenance Allergies Active Allergy [...] Tab 0 12/10/2019 Active ACCU-CHEK SOFTCLIX LANCETS MIS Test blood sugar three or four times [...] colchicine 0.6 MG TabletIndications:Le ukocytoclastic vasculitis ([facility]) Take 1/2 tab daily 45 Tab 3 [...] daily. 90 Tab 12/18/2019 Active Glucose Blood (Platform9 Systems ULTRA BLUE) STRP Check sugars 3-4 times [...] Telephone Encounter - Rema Gutierrez OSA - 01/28/2020 9:46 AM EDT Outbound call to patient to schedule ED f/u visit, per the request of CORI Gonzalez. Patient agreeable. SCHEDULED: 01/27 w/ documented in this encounter Plan of Treatment Upcoming Encounters Date Type Specialty Care Team Description 01/28/2020 Home Visit [facility] Lexus Kendrick, DO [address] [place] [address] [phone] 02/04/2020 Office Visit Dermatology Apple Kaminski MD [address] [place] [address] [phone] 02/26/2020 Office Visit Cardiology Rey Woodall MD [address] [place] [address] [phone] 03/05/2020 Office Visit Pharmacy [facility] [address] [place] [address] 03/06/2020 Office Visit Orthopedics Zack Teague, DO [address] [address] [phone] 05/08/2020 Office Visit Family Medicine Kevin Whiteside, DO [address] [place] [address] [phone] 07/11/2020 Imaging Radiology 11/27/2020 Office Visit Pulmonary Celsa Tafoya CRNP [address] [id number] Health Maintenance Due Date Last Done Comments [...] Documents on File Type Date Recorded Patient Pleating Supervisor Expl 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
--- OUTSIDE RECORDS SUMMARY | 2023-06-01 05:28 | External Medical Summary | Summary of Care ---
Author Name Unknown Organization [place] [address] Care Team Providers Care Red Hat Engineer Name Role Phone Kevin Whiteside DO Primary Care Provider Encounter Details Date Type Department Care Team Description 01/23/2020 Documentation Laboratory, [facility] [address] [facility] [place] [address] [facility] [address] [facility] [address] Uncontrolled type 2 diabetes mellitus with stage 4 chronic kidney disease, with long-term current use of insulin ([facility]) Allergies Active Allergy Reactions Severity Noted Date Comments Pollen 05/18/2019 Heparin 09/04/2009 Heparin Induced Thrombocytopenia Empagliflozin Other (Please comment) Medium 05/17/2018 3 yeast infections in 6 weeks after starting Morphine And Related 09/16/1997 Hallucinations Tetanus Toxoid Other (Please comment) 06/15/2011 Passed out documented as of this encounter (statuses as of 01/25/2020) Medications Medication Sig Dispensed Refills Start Date [...] 3 08/30/2018 Active Blood Glucose Monitoring Suppl (Relevance MediaTOUCH ULTRA 2) w/Device KIT Use to test [...] colchicine 0.6 MG TabletIndications:L eukocytoclastic vasculitis ([facility]) Take 1/2 [...] daily. 90 Tab 12/18/2019 Active Glucose Blood (Pump AudioUCH ULTRA BLUE) STRP Check sugars 3-4 times [...] as of this encounter (statuses as of 01/25/2020) Active Problems Problem Noted Date Uncontrolled type [...] 10/14/2014 Overview: ICD-10 update of inactive term [place] filter in place 08/19/2014 History of pulmonary [...] as of this encounter (statuses as of 01/25/2020) Resolved Problems Problem Noted Date Resolved Date [...] as of this encounter (statuses as of 01/25/2020) Immunizations Name Administration Dates Next Due Pneumococcal [...] AM EDT documented as of this encounter Nursing Notes * Data, Entry - 01/24/2020 5:33 AM EDT Automated conversion to a Documentation Encounter documented in this encounter Miscellaneous Notes * Result Teri Campbell RN - 01/25/2020 10:33 AM EDT Letter sent * Result Gia Chery MD - 01/25/2020 10:10 AM EDT Kidney function slightly better than a month ago which is good news. Keep up the good work.Gia White MD a documented in this encounter Plan of Treatment Upcoming Encounters Date Type Specialty Care Team Description 02/04/2020 Office Visit Dermatology Apple Kaminski MD [address] [place] [address] [phone] 02/26/2020 Office Visit Cardiology Rey Woodall MD [address] [address] [phone] 03/05/2020 Office Visit Pharmacy [facility] [address] [place] [address] 03/06/2020 Office Visit Orthopedics Zack Teague DO [address] [place] [address] [phone] 05/08/2020 Office Visit Family Medicine Kevin Whiteside DO [address] [address] [phone] 07/11/2020 Imaging Radiology 11/27/2020 Office Visit Pulmonary Celsa Tafoya CRNP [address] [place] [address] [phone] Health Maintenance Due Date Last Done Comments [...] Procedure Name Priority Date/Time Associated Diagnosis Comments BASIC METAB PANEL, BMP Routine 01/23/2020 11:01 AM EDT Uncontrolled type 2 diabetes mellitus with stage 4 chronic kidney disease, with long-term current use of insulin (HCC) documented in this encounter Results * BASIC METAB PANEL, BMP (01/23/2020 11:01 AM EDT) BUN 37(H) 6 - 20 mg/dL [facility] CREATININE 1.8(H) 0.5 - 1.0 mg/dL [facility] E GLOM FILT RATE 30.2(L)Comment:If patient is , multiply estimated GFR by 1.159. >60 [facility] SODIUM 138 135 - 146 mmol/L [facility] POTASSIUM 4.2 3.5 - 5.1 mmol/L [facility] CHLORIDE 97(L) 98 - 107 mmol/L [facility] CO2 27 22 - 32 mmol/L [facility] ANION GAP 14 7 - 15 mmol/L [facility] GLUCOSE 252(H) 70 - 120 mg/dL [facility] CALCIUM 9.6 8.4 - 10.2 mg/dL [facility] Specimen Performing Organization Address City/State/Zipcod e Phone Number [facility] [address] [place] [address] documented in this encounter Visit Diagnoses Diagnosis Uncontrolled type 2 diabetes mellitus with stage 4 chronic kidney disease, with long-term current use of insulin (HCC) documented in this encounter Advance Directives Documents on File Type Date Recorded Patient Content Designer Expl 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
--- OUTSIDE RECORDS SUMMARY | 2023-06-01 05:28 | External Medical Summary | Summary of Care ---
Author Name Unknown Organization [place] [address] Care Team Providers Care Legal Intern Name Role Phone Migue Whitesidemelinda Primary Care Provider Reason for Visit * Reason Comments Rash Encounter Details Date Type Department Care Team Description 01/31/2020 Telemedicine Dermatology [facility] [address] [place] [address] Apple Kaminski MD [address] [place], [place] [id number] Leukocytoclastic vasculitis (HCC)*; Cellulitis of right lower extremity Allergies Active Allergy Reactions Severity Noted Date Comments Pollen 05/18/2019 Heparin 09/04/2009 Heparin Induced Thrombocytopenia Empagliflozin Other (Please comment) Medium 05/17/2018 3 yeast infections in 6 weeks after starting Morphine And Related 09/16/1997 Hallucinations Tetanus Toxoid Other (Please comment) 06/15/2011 Passed out documented as of this encounter (statuses as of 01/31/2020) Medications Medication Sig Dispensed Refills Start Date [...] 3 08/30/2018 Active Blood Glucose Monitoring Suppl (Collider MediaUCH ULTRA 2) w/Device KIT Use to [...] 3 12/18/2019 Active levothyroxine (LEVOXYL) 25 MCG TabletIndications:P [...] 90 Tab 3 12/18/2019 Active Glucose Blood (Collider MediaUCH ULTRA BLUE) STRP Check sugars 3-4 times daily 400 Strip 12/18/2019 Active traZODone (DESYREL) 50 MG Tablet Take 1 Tab by mouth at bedtime. 90 Tab 3 12/18/2019 Active rOPINIRole (REQUIP) 2 MG TabletIndications:R [...] 3 01/23/2020 Active clonazePAM (KLONOPIN) 0.5 MG TabletIndications:A nxiety state TAKE ONE TABLET BY MOUTH TWICE DAILY 60 Tab 0 01/29/2020 Active traMADol (ULTRAM) 50 MG TabletIndications:C hronic pain syndrome TAKE ONE TABLET BY MOUTH EVERY EIGHT HOURS NEEDED FOR SEVERE PAIN 90 Tab 0 01/29/2020 Active colchicine 0.6 MG TabletIndications:L eukocytoclastic vasculitis (HCC) Take 1/2 tab daily 45 Tab 1 01/31/2020 Active colchicine 0.6 MG TabletIndications:L eukocytoclastic vasculitis (HCC) Take 1/2 tab daily 45 Tab 3 12/18/2019 0 Discontinue d(Refill) Hospital, Clinic, or Other Facility Administered Medication Ordered Dose Route Frequency Start Date End Date Status levalbuterol (XOPENEX) inhalation solution 0.63 mgIndications:Wheezing 0.63 mg NEBULIZER Q4H PRN 09/12/2019 Ac tive documented as of this encounter (statuses as of 01/31/2020) Active Problems Problem Noted Date Uncontrolled type [...] as of this encounter (statuses as of 01/31/2020) Resolved Problems Problem Noted Date Resolved Date [...] as of this encounter (statuses as of 01/31/2020) Immunizations Name Administration Dates Next Due Pneumococcal [...] Progress Notes * Apple Kaminski MD - 01/31/2020 11:00 AM EDT After connecting to the patient via telephone, the patient was identified by name and date of . Patient was then informed that this was a telephone call only visit. The patient agreed to participate. Visit Disposition: Routine follow-up Total call duration was 9 minutes. SUBJECTIVE: History of Present Illness: Stephanie Camp is a 64 year old female seen today for follow up of 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 Last Office/Telemedicine Visit: 10/29/2019. Last attempted treatments includeclobetasol cream, colchicine 0.3mg daily resulting in much improvement. Pt states she has one recurrence during recent UTI but this resolved quickly when UTI was treated. Treatment tolerated well, denies diarrhea or GI upset. Pt was seen in the ED January 24 with RLE swelling and pain, diagnosed with cellulitis and treated with IM Rocephin and oral course of keflex. U/S negative for DVT. She states right before this her lasix dose was changed and so her swelling in her legs was flaring but denies any injury to the legs or open sores. Recently seen for at home visit by Dr. Kendrick and felt to be improving. 09/10/19-ASO titer positive-237 Mzxgkfgpbctvm-xthxbbwi-edltdvmenm type III Creatinine 2.0 09/10/19: CBC, BEL, RF, hepatitis panel-negative, SPEP-no paraprotein 12/24/19-ANCA negative, complement -WNL, 01/04/20 BMP: creatinine 1.9, U/A: large esterase, increased WBC and increased esterase 01/04/20 culture positive for Klebsiella Biopsy A. Skin, right forearm: Leukocytoclastic vasculitis (see comment) REVIEW OF SYSTEMS: SKIN: No other new or changing moles. HEME/LYMPH: No new or enlarging lumps or bumps. MEDICA TIONS: Current Outpatient Medications Medication Sig Dispense Refill clonazePAM (KLONOPIN) 0.5 MG Tablet TAKE ONE TABLET BY MOUTH TWICE DAILY 60 Tab 0 traMADol (ULTRAM) 50 MG Tablet TAKE ONE TABLET BY MOUTH EVERY EIGHT HOURS NEEDED FOR SEVERE PAIN90 Tab 0 furosemide (LASIX) 40 MG Tablet Take 1.5 Tabs by mouth daily. 135 Tab 3 insulin aspart (INSULIN ASPART) 100 UNIT/ML injection NOVOLOG Vial- USE IN INSULIN PUMP UP TO 200 UNITS PER DAY 10 mL 0 ACCU-CHEK SOFTCLIX LANCETS MISC Test blood sugar three or four times daily as directed 400 Each 3 colchicine 0.6 MG Tablet Take 1/2 tab daily 45 Tab 3 Dulaglutide (TRULICITY) 1.5 MG/0.5ML SOPN [...] breakfast or other meds) 90 Tab 3 Magnesium Oxide 400 (241.3 [...] History: Diagnosis Date ELSIE (acute kidney injury) ([facility]) 06/12/2018 Allergic rhinitis due to other allergen Backache Diverticulosis of colon 01/28/06 DM type 2, not at goal ([facility]) ELLIE (generalized anxiety disorder) 09/13/2009 [address]iter [place] filter in place 08/19/2014 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[facility]) 08/22/2009 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[facility]) 06/12/2018 History of pulmonary embolus (PE) 07/16/2014 HTN, goal below 140/90 Impetigo 09/27/2018 Obesity, BMI not known Perforation of intestine ([facility]) 1996 COLON -- 1996 Pneumonia in aspergillosis(484.6) 09/14/2009 Spontaneous pneumothorax 09/14/2009 Statin intolerance 07/16/2014 Type 2 diabetes mellitus with hemoglobin A1c goal of 7.0%-8.0% ([facility]) 10/14/2014 ICD-10 update of inactive term Vaginal karmen 07/13/2018 OBJECTIVE: GEN: alert, no distress, pleasant and cooperative. SKIN: 1. Unable to examine due to telephonic visit. ASSESS MENT/PLAN: 1. Leukocytoclastic vasculitis-? Due to strep infection Continue colchicine 0.3mg daily-keeping dose very low due to renal compromise. Continue clobetasol cream twice daily as needed for flares Pt to call if flares. 2. Cellulitis vs stasis dermatitis-finish out course of keflex. Encourage compression stockings daily or keeping legs elevated as much as possible to help reduce swelling in legs. Follow-up: 4 month(s) There were no barriers tolearning and no other pain was related to today's visit. The patient and/or person accompanying patient demonstrates understanding of the visit and treatment. Apple Kaminski MD Ref: SELF[[id number]] NO STREET ADDRESS AVAILABLE None (office) None (fax) PCP: MIGUE WHITESIDE [address] [address] [phone] documented in this encounter Plan of Treatment Upcoming Encounters Date Type Specialty Care Team Description 02/26/2020 Office Visit Cardiology Rey Woodall MD [address] [id number] 03/05/2020 Office Visit Pharmacy [facility] [address] [place] [address] 03/06/2020 Office Visit Orthopedics Zack Teague, DO [address] [place] [address] [phone] 05/08/2020 Office Visit Family Medicine Migue Whiteside, [address] [address] [phone] 07/11/2020 Imaging Radiology 11/27/2020 Office Visit Pulmonary Celsa Tafoya CRNP [address] [address] [phone] Health Maintenance Due Date Last Done Comments [...] vasculitis (HCC)- Primary Other specified hypersensitivity angiitis Cellulitis of right lower extremity Cellulitis and abscess of leg, except foot documented in this encounter Advance Directives Documents on File Type Date Recorded Patient Sample Checker Expl 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
--- OUTSIDE RECORDS SUMMARY | 2023-06-01 05:28 | External Medical Summary | Summary of Care ---
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 90 Cap 12/18/2019 Active insulin aspart [...] daily. 90 Tab 12/18/2019 Active Glucose Blood (MagineTOUCH ULTRA BLUE) STRP Check sugars 3-4 times [...] 50.0 to 59.9 in adult ([facility]),Hypoxemia,ELISSA (obstructive sleep apnea),HTN, goal below 140/80 Take [...] 10/14/2014 Overview: ICD-10 update of inactive term [place] filter in place 08/19/2014 History of pulmonary [...] Reading Time Taken Comments Blood Pressure 118/68 01/28/2020 3:07 PM EDT Pulse 84 01/28/2020 3:07 PM EDT Temperature 36.4 C (97.5 F) 01/28/2020 3:07 PM ED T Respiratory Rate 16 01/28/2020 3:07 PM EDT Oxygen Saturation 96% 01/28/2020 3:07 PM EDT Inhaled Oxygen Concentration - - Weight - - Height - - Body Mass Index - - documented in this encounter Progress Notes * Lexus Kendrick, - 01/28/2020 2:30 PM EDT [facility] Provider Visit Date: 01/28/2020 Time: 12:45 PM HPI: Stephanie Camp is a 64 year old female seen in her home for a provider visit. Seen in ER january 24 with complaint RLE swelling redness and pain. US neg for DVT and she wasi given IMrocephin in ER and sicahrged on keflex for cellulitis. ROS: Review of Systems Constitutional: Negative for fever. HENT: Negative for congestion and sinus pressure. + typical allergy itching eyes and nasal drip Respiratory: Negative for cough and shortness of breath. Cardiovascular: Negative for chest pain. Gastrointestinal: Negative for abdominal pain, nausea and vomiting. Loose stools since starting keflex. Taking bid instead of tid for now and that has helped Genitourinary: Negative for dysuria. Musculoskeletal: Positive for back pain. Physical Exam: Filed Vitals: 01/28/20 1507 BP: 118/68 Pulse: 84 Resp: 16 Temp: 36.4 C (97.5 F) SpO2: 96% LMP 03/11/2003 Physical Exam Constitutional: General: She is not in acute distress. Appearance: She is obese. Cardiovascular: Rate and Rhythm: Regular rhythm. Heart sounds: No murmur. Pulmonary: Breath sounds: Normal breath sounds. No wheezing. Abdominal: General: Bowel sounds are normal. Palpations: Abdomen is soft. Tenderness: There is no abdominal tenderness. Musculoskeletal: Comments: RLE: + dp pulse, no warmth, only faint redness distal foot, no open skin feet or leg. + baseline swelling and increased calf circumference LLE: no edema, + dp pulse, no erythema Skin: General: Skin is warm and dry. Capillary Refill: Capillary refill takes less than 2 seconds. Neurological: Mental Status: She is alert. Assessment/Plan: 1. Cellulitis of right lower extremity Improved. Complete keflex 2. 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 Lungs clear 3. History of pulmonary embolus (PE) She is not on anticoagulants. 4. Uncontrolled type 2 diabetes mellitus with stage 4 chronic kidney disease, with long-term current use of insulin ([facility]) Her hgba1c is improved! Hemoglobin AIC Results: HEMOGLOBIN, A1C(%) Nessa Dt/Tm Resulted Value Status 01/23/20 11:11A 01/23/20 7.3* FINAL 11/07/19 3:04P 11/07/19 8.3* FINAL 08/09/19 11:02A 08/09/19 9.4* FINAL Home Interventions Provided: Reinforced current Plan of Care, including self-management and medication regimen Updated Advanced Care Planning Note Lexus Kendrick DO documented in this encounter Miscellaneous Notes * ACP (Advance Care Planning) - Lexus Kendrick DO - 01/28/2020 3:22 PM EDT Goals of care discussion held with patient/patient's family: the patient at length. We discussed both their short term and business case analyst goals. - Short term goals: get her knee replaced and less pain. - street department dispatcher goals: Do you have a living will or POLST? - ADVANCED DIRECTIVES: she is in process of completing and discussing with her brother who would bemPOA. What is your current code status? - CODE STATUS [facility] IP: Full Code and . LIfe support in ICU is acceptable to her but if the situaition looks hopeless or if she cannot live without it she would not want indefinite life support. Lexus Kendrick DO documented in this encounter Plan of Treatment Upcoming Encounters Date Type Specialty Care Team Description 02/04/2020 Office Visit Dermatology Apple Kaminski MD [address] [place] [address] [phone] 02/26/2020 Office Visit Cardiology Rey Woodall MD [address] [place] [address] [phone] 03/05/2020 Office Visit Pharmacy [facility] [address] [place] [address] 03/06/2020 Office Visit Orthopedics Zack Teague DO [address] [place] [phone] 05/08/2020 Office Visit Family Medicine Kevin Whiteside DO [address] [place] [address] [phone] 07/11/2020 Imaging Radiology 11/27/2020 Office Visit Pulmonary Celsa Tafoya CRNP [address] [place] [address] [phone] Health Maintenance Due Date Last Done Comments [...] this encounter Visit Diagnoses Diagnosis Cellulitis of right lower extremity- Primary Cellulitis and abscess of leg, except foot 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
--- OUTSIDE RECORDS SUMMARY | 2023-06-01 05:28 | External Medical Summary | Summary of Care ---
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 15 mL 3 12/18/2019 Active colchicine 0.6 MG TabletIndications:Le ukocytoclastic vasculitis ([facility]) Take 1/2 tab daily 45 Tab 3 12/18/2019 Active Nortriptyline HCl (PAMELOR) 50 MG CapsuleIndications:F ibromyalgia Take 1 Cap by mouth at bedtime. 90 Cap 3 12/18/2019 Active gabapentin (NEURONTIN) 300 MG CapsuleIndications:T ype 2 diabetes mellitus with hemoglobin A1c goal of 7.0%-8.0% ([facility]) Take 1 Cap by mouth 3 times [...] daily. 90 Tab 12/18/2019 Active Glucose Blood (SkycheckinUCH ULTRA BLUE) STRP Check sugars 3-4 times [...] 01/17/2020 Active furosemide (LASIX) 40 MG TabletIndications:Ch syed diastolic congestive heart failure (HCC) Take 1.5 [...] this encounter Progress Notes * Hortencia Masters [facility] - 01/25/2020 2:30 PM EDT [facility] - [facility]acy Patient Phone Numbers Call placed to patient at 2:30 pm. Left message to call back if any issues with increase in lasix from earlier this week. Hortencia Masters, PharmD, [facility] Clinical Pharmacist [facility] 01/25/2020,2:32 PM documented in this encounter Plan of Treatment Upcoming Encounters Date Type Specialty Care Team Description 02/04/2020 Office Visit Dermatology Apple Kaminski MD [address] [place] [address] [phone] 02/26/2020 Office Visit Cardiology Rey Woodall MD [address] [place] [address] [phone] 03/05/2020 Office Visit Pharmacy [facility] [place] [address] [place] [address] 03/06/2020 Office Visit Orthopedics Zack Teague, [address] [place] [address] [phone] 05/08/2020 Office Visit Family Medicine Kevin Whiteside, [address] [place] [address] [phone] 07/11/2020 Imaging Radiology 11/27/2020 Office Visit Pulmonary Celsa Tafoya CRNP [address] [place] [address] [phone] Health Maintenance Due Date Last Done Comments [...] Documents on File Type Date Recorded Patient Verification Rep Expl 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
--- OUTSIDE RECORDS SUMMARY | 2023-06-01 05:29 | External Medical Summary | Summary of Care ---
Author Name Unknown Organization [place] [address] Care Team Providers Care Inserter Operator Name Role Phone Migue Whiteside DO Primary Care Provider Reason for Visit * Reason Comments Medication Refill Encounter Details Date Type Department Care Team Description 01/17/2020 Refill Family Practice [facility] [address] [place] [address] Migue Whiteside DO [address] [place] [address] [phone] Allergies Active Allergy Reactions Severity Noted Date Comments Pollen 05/18/2019 Heparin 09/04/2009 Heparin Induced Thrombocytopenia Empagliflozin Other (Please comment) Medium 05/17/2018 3 yeast infections in 6 weeks after starting Morphine And Related 09/16/1997 Hallucinations Tetanus Toxoid Other (Please comment) 06/15/2011 Passed out documented as of this encounter (statuses as of 01/17/2020) Medications Medication Sig Dispensed Refills Start Date [...] by mouth daily. 90 Tab 12/18/2019 Active furosemide (LASIX) 40 MG TabletIndications:Ch ronic diastolic congestive heart failure (HCC) Take 1 Tab by mouth daily. 90 Tab 12/18/2019 Active Glucose Blood (Soane EnergyUCH ULTRA BLUE) STRP Check sugars 3-4 times [...] as of this encounter (statuses as of 01/17/2020) Active Problems Problem Noted Date Uncontrolled type [...] 10/14/2014 Overview: ICD-10 update of inactive term [place] filter in place 08/19/2014 History of pulmonary [...] as of this encounter (statuses as of 01/17/2020) Resolved Problems Problem Noted Date Resolved Date [...] as of this encounter (statuses as of 01/17/2020) Immunizations Name Administration Dates Next Due Pneumococcal [...] have Coronavirus / COVID-19? Unable to assess 01/04/2020 10:48 AM EDT documented as of this encounter Miscellaneous Notes * Addendum Note - Hermelinda Vides PHARM Tech - 01/17/2020 4:27 PM EDT Addended by: HERMELINDA VIDES on: 01/17/2020 04:27 PM Modules accepted: Orders * Telephone Encounter - Hermelinda Vides PHARM Tech - 01/17/2020 4:24 PM EDT Pharmacy calling asking for a prescription with the brand name on. They do not have the generic in stock and do have the brand. It does not have to say brand necessary on it. Pt is out of medication. Waiting for mail order and has the override to fill Pending Prescriptions: Disp Refills insulin aspart (INSULIN ASPART) 100 UNIT/*10 mL 0 Sig: USE IN INSULIN PUMP UP TO 200 UNITS PER DAY Signed Prescriptions: Disp Refills insulin aspart (INSULIN ASPART) 100 UNIT/M*10 mL 0 Sig: USE IN INSULIN PUMP UP TO 200 UNITS PER DAY Authorizing Provider: MIGUE WHITESIDE Ordering User: SAPNA LAY Last Office/Telemedicine Visit: 12/10/2019 Next Office Visit: 05/08/2020 Scheduled Provider(s): Migue Whiteside DO If no future appointments scheduled, and last appointment is greater than a year ago, please schedule patient for a follow-up appointment Last date the medication was ordered: 01/17/20 [facility] [place] Is this request for a controlled substance?No [...] Labs: Lab Results Component Value Date/Time CREAT 1.9 (H) 01/04/2020 10:53 AM POTASSIUM 5.1 01/04/2020 10:53 AM TSH 0.88 03/14/2019 01:54 PM LDLCALC UNINTERPRETABLE RESULT 03/14/2019 01:54 PM LDLDIRECT 109 07/14/2017 12:35 PM ALT 18 07/20/2019 10:42 AM HGBA1C 8.3 (H) 11/07/2019 03:04 PM * Telephone Encounter - Sapna Lay [facility] - 01/17/2020 3:39 PM EDT Signed Prescriptions: Disp Refills insulin aspart (INSULIN ASPART) 100 UNIT/M*10 mL 0 Sig: USE IN INSULIN PUMP UP TO 200 UNITS PER DAYAuthorizing Provider: MIGUE WHITESIDE User: SAPNA LAY * Telephone Encounter - Isha Vides CPhT - 01/17/2020 3:24 PM EDT Pt is having a delay in mail order shipment. Pharmacy asking for one vial to be sent to local pharmacy for pt. Pending Prescriptions: Disp Refills insulin aspart (INSULIN ASPART) 100 UNIT/*10 mL 0 Sig: USE IN INSULIN PUMP UP TO 200 UNITS PER DAY Last Office/Telemedicine Visit: 12/10/2019 Next Office Visit: 05/08/2020 Scheduled Provider(s): Migue Whiteside, DO If no future appointments scheduled, and last appointment is greater than a year ago, please schedule patient for a follow-up appointment Last date the medication was ordered: [facility] [address] [place] Is this request for a controlled substance?No [...] Labs: Lab Results Component Value Date/Time CREAT 1.9 (H) 01/04/2020 10:53 AM POTASSIUM 5.1 01/04/2020 10:53 AM TSH 0.88 03/14/2019 01:54 PM LDLCALC UNINTERPRETABLE RESULT 03/14/2019 01:54 PM LDLDIRECT 109 07/14/2017 12:35 PM ALT 18 07/20/2019 10:42 AM HGBA1C 8.3 (H) 11/07/2019 03:04 PM documented in this encounter Plan of Treatment Upcoming Encounters Date Type Specialty Care Team Description 02/04/2020 Office Visit Dermatology Apple [facility]inski [facility] [address] [facility] [address] [phone] 02/26/2020 Office Visit Cardiology Rey Woodall MD [address] [facility] [place] [address] [phone] 03/05/2020 Office Visit Pharmacy [facility] [place] [address] [place] [address] 03/06/2020 Office Visit Orthopedics Zack Teague, DO [address] [place] [address] [phone] 05/08/2020 Office Visit Family Medicine Migue Whiteside, DO [address] [place] [address] [phone] 07/11/2020 Imaging Radiology 11/27/2020 Office Visit Pulmonary Celsa Tafoya CRNP [address] [place] [address] [phone] Health Maintenance Due Date Last Done Comments [...] Documents on File Type Date Recorded Patient Fixing Carpenter Expl 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
--- OUTSIDE RECORDS SUMMARY | 2023-06-01 05:29 | External Medical Summary | Summary of Care ---
Author [place] [address] Care Team Providers Care Greeting Card Writer Name Role Phone Carey Whitesidelidia Ocampomelinda Primary Care Provider Reason for Visit * Reason Comments Nurse Documentation pre video visit info Encounter Details Date Type Department Care Team Description 01/11/2020 Telephone Nephrology, [facility] [address] [place] [address] Gia White MD [address] [place], [place] [id number] Nurse Documentation (pre video visit info) Allergies Active Allergy Reactions Severity Noted Date Comments Pollen 05/18/2019 Heparin 09/04/2009 Heparin Induced Thrombocytopenia Empagliflozin Other (Please comment) Medium 05/17/2018 3 yeast infections in 6 weeks after starting Morphine And Related 09/16/1997 Hallucinations Tetanus Toxoid Other (Please comment) 06/15/2011 Passed out documented as of this encounter (statuses as of 01/11/2020) Medications Medication Sig Dispensed Refills Start Date [...] or other meds) 90 Tab 12/18/2019 Active Vitamin D, Ergocalciferol, 1.25 MG (75922 UT) CapsuleIndications:V itamin D deficiency Take 1 Cap by mouth every 4 weeks. 13 Cap 12/18/2019 Active DULoxetine (CYMBALTA) 30 MG CPEP [...] mouth daily. 90 Cap 3 12/18/2019 Active spironolactone (ALDACTONE) 25 MG Tablet Take 0.5 Tabs by mouth daily. 90 Tab 3 12/25/2019 Active clonazePAM (KLONOPIN) 0.5 MG TabletIndications:An xiety state TAKE ONE TABLET BY MOUTH TWICE DAILY 60 Tab 0 01/01/2020 Active ciprofloxacin (CIPRO) 500 MG Tablet Take 1 Tab by mouth daily for 7 days. 7 Tab 0 01/09/2020 0 Active Hospital, Clinic, or Other Facility Administered Medication Ordered Dose Route Frequency Start Date End Date Status levalbuterol (XOPENEX) inhalation solution 0.63 mgIndications:Wheezing 0.63 mg NEBULIZER Q4H PRN 09/12/2019 Ac tive documented as of this encounter (statuses as of 01/11/2020) Active Problems Problem Noted Date Uncontrolled type [...] 10/14/2014 Overview: ICD-10 update of inactive term [place] filter in place 08/19/2014 History of pulmonary [...] as of this encounter (statuses as of 01/11/2020) Resolved Problems Problem Noted Date Resolved Date [...] as of this encounter (statuses as of 01/11/2020) Immunizations Name Administration Dates Next Due Pneumococcal [...] encounter Miscellaneous Notes * Telephone Encounter - Teri Cullen RN - 01/11/2020 12:53 PM EDT Called patient prior to telemedicine visit. Patient identified by verbal name and date of . Medication list reviewed and updates made as needed. Allergies reviewed and updated as needed. Does the patient have a home BP monitor and/or scale? bp monitor Does the patient use alcohol, tobacco, illegal drugs, vape, or e-cigarette? no If yes which one and how much? Has the patient fell in the last 6 months? no Does the patient have any pain related to the visit today no Can the patient check their BP and/or weight prior to speaking with the doctor or while talking with you? 130/76 Does the patient utilize [facility] or have a home health nurse? [facility] Has the patient had any recent hospital admission or emergency room visits? no If yes for what reason: Has the patient had any new health information that may be added to the chart? no If yes what information needs added: Has the patient traveled outside the country in the last month? no Has the patient been in contact with anyone sick? no Any cold or flu symptoms? no In the last month has the patient been in contact with someone who was confirmed or suspected to have the henderson virus/COVID 19? no Does the patient have any questions or concerns for the doctor? no Did you receive the e-mail or text message containing the link for you video visit? no Did you have a successful test connection? no Pharmacy [facility] documented in this encounter Plan of Treatment Upcoming Encounters Date Type Specialty Care Team Description 02/04/2020 Office Visit Dermatology Apple Kaminski MD [address] [place] [address] [phone] 02/07/2020 Office Visit Orthopedics Zack Teague, DO [address] [place] [address] [phone] 02/26/2020 Office Visit Cardiology Rey Woodall MD [address] [place] [address] [phone] 03/05/2020 Office Visit Pharmacy [facility] [place] [address] [place] [id number] 05/08/2020 Office Visit Family Medicine Keivn Whiteside DO [address] [place] [address] [phone] 07/11/2020 Imaging Radiology 11/27/2020 Office Visit Pulmonary [...] 10/03/2022 10/03/2019, 05/11/2013, 03/01/2008, Additional history exists Pneumococcal Vaccine: Pediatrics (0 to 5 Years) and At-Risk Patients (6 to 64 Years) Completed 08/22/2009, 06/15/2006 Influenza Vaccine (FLU shot) Completed , 06/12/2018, 06/12/2018, Additional history exists MENINGOCOCCAL (MENACTRA/MENVEO) Aged Out No longer eligible based on patient's age to complete this topic documented as of this encounter Implants Not on filedocumented as of this encounter Advance Directives Documents on File Type Date Recorded Patient Character Actress Expl 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
--- OUTSIDE RECORDS SUMMARY | 2023-06-01 05:29 | External Medical Summary ---
Author Name Unknown Address [address] [facility] [place] [address] Phone Organization [id number]:[facility] [place] [address] [facility] [place] [address] Laboratory Report Ordering Provider Test Date Status TRACY LARRY 01/23/2020 11:01:00 Final Observation Date Value Abnormality Reference (Units ) Status BUN 01/23/2020 12:21 37 Above high normal 6-20 (mg/dL) Final Creatinine 01/23/2020 12:21 1.8 Above high normal 0.5- 1.0 (mg/dL) Final E Glom Filt Rate 01/23/2020 12:21 30.2 Below low normal >60 Final Performing Location [facility] [place] [facility] [employer] [address] [facility] [place] [address]
--- OUTSIDE RECORDS SUMMARY | 2023-06-01 05:29 | External Medical Summary | Summary of Care ---
Author Name [place] [address] Care Team Providers Care Servomechanism Designer Name Role Phone Kevin Whiteside DO Primary Care Provider Reason for Visit * Reason Comments Chronic Kidney Disease (CKD) Encounter Details Date Type Department Care Team Description 01/11/2020 Telemedicine Nephrology, [facility] [address] [place] [address] Gia White MD [address], [place] [id number] Uncontrolled type 2 diabetes mellitus with stage 4 chronic kidney disease, with long-term current use of insulin (HCC)*; HTN, goal below 130/80 Allergies Active Allergy [...] 3 08/30/2018 Active Blood Glucose Monitoring Suppl (ZazzleTOUCH ULTRA 2) w/Device KIT Use to test [...] Active colchicine 0.6 MG TabletIndications:L eukocytoclastic vasculitis ([facility]) Take 1/2 tab daily 45 Tab 3 12/18/2019 Active Nortriptyline HCl (PAMELOR) 50 MG CapsuleIndications: Fibromyalgia Take 1 Cap by mouth at bedtime. 90 Cap 3 12/18/2019 Active gabapentin (NEURONTIN) 300 MG CapsuleIndications: Type 2 diabetes mellitus with hemoglobin A1c goal of 7.0%-8.0% ([facility]) Take 1 Cap by mouth [...] Tab 12/18/2019 Active furosemide (LASIX) 40 MG TabletIndications:C hronic [...] 3 12/18/2019 Active clonazePAM (KLONOPIN) 0.5 MG TabletIndications:A nxiety state TAKE ONE TABLET BY MOUTH TWICE DAILY 60 Tab 0 01/01/2020 Active ciprofloxacin (CIPRO) 500 MG Tablet Take 1 Tab by mouth daily for 7 days. 7 Tab 0 01/09/2020 0 Active Vitamin D, Ergocalciferol, 1.25 MG (56849 UT) CapsuleIndications: Vitamin D deficiency Take 1 Cap by mouth every 4 weeks. 13 Cap 3 12/18/2019 0 Discontinue d(Discharge d) spironolactone (ALDACTONE) 25 MG Tablet Take 0.5 Tabs by mouth daily. 90 Tab 3 12/25/2019 0 Discontinue d(Discharge d) Hospital, Clinic, or Other Facility Administered Medication [...] as of this encounter Progress Notes * Gia White MD - 01/11/2020 1:01 PM EDT Nephrology Telemedicine Note 01/11/2020, 1:01 PM After connecting through [employer], patient was identified by name and date of . Patient was then informed that this was a Telemedicine visit and that the exam was being conducted confidentially, over secure lines, that my office door was closed, and there was no one else in the room. Patient acknowledged consent and understanding of privacy and security of the Telemedicine visit, and gave us permission to proceed. I informed the patient that I have reviewed their record in [facility] and presented the opportunity for them to ask any questions regarding the visit today. The patient agreed to participate. 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 She has history of type 2 diabetes for over 20 years recent A1c of 10 on 05/01/2018, no retinopathy but has neuropathy,OSAon CPAP,DVT status post IVC filter, fibromyalgia hypertension and obesity. Her creatinine is fluctuated between 1.1 and 1.7 since 2016. Ultrasound done on 06/06/2018 showed the right kidney of 10.2 cm and left kidney of 10.9 cm. There was mild He cortical atrophy and mild right-sided hydronephrosis. She was hospitalized at [facility] for shortness of breath found have acute kidney injury with a creatinine of 1.1to 1.3in the fall 2017. Recent echocardiogramAugust 2019showed EF of60%and grade 1 diastolic dysfunction. [facility] with the weakness and CHF exacerbation. Creatinine peaked at 2.3.She is now taking Lasix 40 mg daily and Aldactone 25 mg daily. She is on chronic oxygen with exercise. Last office visit was in July 2019. I called her last month and was found have UTI. She is now on ciprofloxacin for 7 days. She has dysuria. She uses oxygen when walking. No leg swelling. Blood sugar Has been good since getting the insulin pump. BS 120-130 Review of Systems: General ROS: negative for [...] Date ELSIE (acute kidney injury) ([facility]) 06/12/2018 Allergic rhinitis due to other allergen Backache Diverticulosis of colon 01/28/06 DM type 2, not at goal ([facility]) ELLIE (generalized anxiety disorder) 09/13/2009 Goiter Frank filter in place 08/19/2014 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[facility]) 08/22/2009 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[facility]) 06/12/2018 History of pulmonary embolus (PE) 07/16/2014 HTN, goal below 140/90 Impetigo 09/27/2018 Obesity, BMI not known Perforation of intestine ([facility]) 1996 COLON -- 1996 Pneumonia in aspergillosis(484.6) 09/14/2009 Spontaneous pneumothorax 09/14/2009 Statin intolerance 07/16/2014 Type 2 diabetes mellitus with hemoglobin A1c goal of 7.0%-8.0% ([facility]) 10/14/2014 ICD-10 update of inactive term Vaginal karmen 07/13/2018 Past Surgical History: Procedure Laterality Date ARTHROPLASTY KNEE TOTAL Right 07/24/14 R COLONOSCOPY, DIAGNOSTIC (RECTUM) 02/18/2016 normal, repeat 10 yrs/[facility] COLONOSCOPY, GI REFERRAL OP 01/28/06 diverticulosis--repeat 10 years INCISION OF WINDPIPE, PLANNED 06/03/2011 TRACHEOSTOMY PLANNED performed by DANNY HOLDER at [facility] KNEE ARTHROSCOPY/DEBRIDEMENT 07/[address] PERMANENT GASTROSTOMY TUBE 09/06/09 GASTROSTOMY WITH CONSTUCTION GASTRIC TUBE performed by AMADOU NUNEZ at [facility] REMOVAL OF THYROID GLAND 06/15/2011 THYROIDECTOMY INCLUDING [...] daily for 7 days. 7 Tab 0 clonazePAM (KLONOPIN) 0.5 MG Tablet TAKE ONE TABLET BY MOUTH TWICE DAILY 60 Tab 0 spironolactone (ALDACTONE) 25 MG Tablet Take 0.5 Tabs by mouth daily. 90 Tab 3 ACCU-CHEK SOFTCLIX LANCETS MISC Test [...] to total 90 mgdaily. 90 Cap 3 furosemide (LASIX) 40 MG Tablet Take 1 Tab by mouth daily. 90 Tab 3 gabapentin (NEURONTIN) 300 MG Capsule Take 1 Cap by mouth 3 times a day. 270 Cap 3 Glucose Blood (ZazzleTOUCH ULTRA BLUE) STRP Check sugars 3-4 times [...] by mouth at bedtime. 90 Tab 3 Vitamin D, Ergocalciferol, 1.25 MG (57022 UT) Capsule Take 1 Cap by mouth every 4 weeks. 13 Cap 3 traMADol (ULTRAM) 50 MG Tablet Take 1 Tab by mouth every 8 hours as needed for Pain, Severe. 90 Tab0 oxygen GAS 2 LPM bled through CPAP [...] level: Not on file Occupational History Occupation: [employer] Employer: [employer] Occupation: [employer] Employer: [employer] Social Needs Financial resource strain: Not on file Food insecurity: Worry: Never true Inability: Never true Transportation needs: Medical: Not on file Non-medical: Not on file Tobacco Use Smoking status: Former Smoker Packs/day: 1.00 Years: 15.00 Pack years: 15.00 Last attempt to quit: 08/26/1997 Years since quittin.3 Smokeless tobacco: Never Used Substance and Sexual Activity Alcohol use: Not Currently Comment: rare Drug use: No Sexual activity: Not Currently Lifestyle Physical activity: Days per week: Not on file Minutes per session: Not on file Stress: Not on file Relationships Social connections: Talks on phone: Not on file Gets together: Not on file Attends yazdanism service: Not on file Active member of [...] Social History Narrative 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 Physical exam through videocamera; Pleasant, smiling, no distress; moist anicteric mucosae, anicteric sclerae. EOMI; neck without visible adenopathy; face symmetrical ; chest expansion symmetrical, breathing unlabored; back symmetrical, no CVAT as noted after having patient tap on either flank. Abdomen not examined. Legs without obvious joint deformities, no pitting edema. Skin clear and no obvious rashes noted. Neurologically AAOx3, speech fluent. Psychiatric - mood pleasant. Labs and data reviewed and significant for: Results for STEPHANIE CAMP ( ) as of 01/11/2020 16:37 Ref. Range 01/04/2020 10:53 BUN Latest Ref Range: 6 - 20 mg/dL 37 (H) CREATININE Latest Ref Range: 0.5 - 1.0 mg/dL 1.9 (H) E GLOM FILT RATE Latest Ref Range: >60 27.9 (L) SODIUM Latest Ref Range: 135 - 146 mmol/L 139 POTASSIUM Latest Ref Range: 3.5 - 5.1 mmol/L 5.1 CHLORIDE Latest Ref Range: 98 - 107 mmol/L 97 (L) CO2 Latest Ref Range: 22 - 32 mmol/L 27 GLUCOSE Latest Ref Range: 70 - 120 mg/dL 241 (H) CALCIUM Latest Ref Range: 8.4 - 10.2 mg/dL 10.1 ANION GAP Latest Ref Range: 7 - 15 mmol/L 15 ASSESSMENT/PLAN: Uncontrolled type 2 diabetes mellitus with stage 3 chronic kidney disease, with long-term current use of insulin ([facility]) Patient with the CKD stage 3 likely due to diabetic nephropathy and chronic NSAID use. Recent creatinine of1.9.baseline creatinine appears to be 1.5-1.7. K has been high lately. Will stop aldactone.She is no longertaking NSAIDs. She can use Tylenol for pain control. She knows to limit salt and keep well hydratedbut not more than 2 L of water daily. Repeat BMP in 2 weeks HTN, goal below 140/90 Her blood pressureis controlled with the current regimen which includes metoprolol and Lasix. Will stop aldactone due to hyperkalemia Chronic diastolic CHF Her symptoms are controlled on diuretics. Continue current dose of Lasix40 mgdaily. She will continue to monitor her weight. She knows to notify us if she gains over 5 lb in 2 days Hyperparathyroidism, secondary renal (HCC) She is vitamin-D replete. Calcium is high. Will stop ergo calciferol 21120 units once a month. Return in 6 months Gia White MD Nephrology, [facility] [address] [facility] [address] documented in this encounter Plan of Treatment Upcoming Encounters Date Type Specialty Care Team Description 02/04/2020 Office Visit Dermatology Apple Kaminski MD [address] [place] [address] [phone] 02/07/2020 Office Visit Orthopedics Zack Teague DO [address] [place] [address] [phone] 02/26/2020 Office Visit Cardiology Rey Woodall MD [address] [place] [id number] 03/05/2020 Office Visit Pharmacy [facility] [address] [facility] [place] [id number] 05/08/2020 Office Visit Family Medicine Kevin Whiteside DO [address] [place] [address] [phone] 07/11/2020 Imaging Radiology 11/27/2020 Office Visit Pulmonary Celsa Tafoya CRNP [address] [place] [address] [phone] Scheduled Orders Name Type Priority Associated Diagnoses Orde r Schedule BASIC METAB PANEL, BMP Lab Routine Uncontrolled type 2 diabetes mellitus with stage 4 chronic kidney disease, with long-term current use of insulin (HCC) Expected: 01/21/2020, Expires: 02/09/2021 Health Maintenance Due Date Last Done Comments [...] long-term current use of insulin (HCC)- Primary HTN, goal below 130/80 Unspecified essential hypertension documented in this encounter Advance Directives Documents on File Type Date Recorded Patient Doll Repairer Expl 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
--- OUTSIDE RECORDS SUMMARY | 2023-06-01 05:29 | External Medical Summary ---
Author Name Unknown Address [facility] [place] [address] Phone Organization K01:[place] [address] [place] [id number] Laboratory Report Ordering Provider Test Date Status MIGUE,ALVES 01/23/2020 11:11:00 Final Observation Date Value Abnormality Reference (Units ) Status HbA1C 01/23/2020 17:51 7.3 Above high normal 4.0-5 .6 (%) Final Performing Location [place] [id number]
--- OUTSIDE RECORDS SUMMARY | 2023-06-01 05:29 | External Medical Summary | Summary of Care ---
Author Name Unknown Organization [place] [address] Care Team Providers Care Supervisor Glycerin Name Role Phone Whiteside Kevin Ocampomelinda Primary Care Provider Encounter Details Date Type Department Care Team Description 01/22/2020 Home Visit [facility], [facility] [address] [place] [address] Brooke Jose, RN [address] [place] [address] [phone] Benign hypertensive heart and kidney disease with [...] as of this encounter (statuses as of 01/22/2020) Medications Medication Sig Dispensed Refills Start Date [...] 3 08/30/2018 Active Blood Glucose Monitoring Suppl (ePrimeCareTOUCH ULTRA 2) w/Device KIT Use to test [...] Active colchicine 0.6 MG TabletIndications:Le ukocytoclastic vasculitis ([facility]) Take 1/2 tab daily 45 Tab 3 [...] daily. 90 Tab 12/18/2019 Active Glucose Blood (BiddingForGoodUCH ULTRA BLUE) STRP Check sugars 3-4 times [...] as of this encounter (statuses as of 01/22/2020) Active Problems Problem Noted Date Uncontrolled type [...] 76%, time <89% 6:21 hours, TINY [facility] Postsurgical hypothyroidism 06/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 documented as of this encounter (statuses as of 01/22/2020) Resolved Problems Problem Noted Date Resolved Date [...] as of this encounter (statuses as of 01/22/2020) Immunizations Name Administration Dates Next Due Pneumococcal [...] have Coronavirus / COVID-19? No / Unsure 01/22/2020 1:54 PM EDT documented as of this encounter Last Filed Vital Signs Vital Sign Reading Time Taken Comments Blood Pressure 108/56 01/22/2020 1:56 PM EDT Pulse 86 01/22/2020 1:56 PM EDT Temperature 36 C (96.8 F) 01/22/2020 1:56 PM EDT Respiratory Rate 18 01/22/2020 1:56 PM EDT Oxygen Saturation 93% 01/22/2020 1:56 PM EDT Inhaled Oxygen Concentration - - Weight 143.8 kg (317 lb) 01/22/2020 1:56 PM EDT Height - - Body Mass Index 54.41 11/30/2019 9:05 AM EST documented in this encounter Progress Notes * Brooke Jose, RN - 01/22/2020 1:50 PM EDT [facility] Procedure ManagerVice President Investor Relations Visit Date: 01/22/2020 Time: 1:50 PM Name: Stephanie Camp : 1955 Last Utilization: Early November, dx Uti, plus fall x2 Current Concerns: acute visit Complains of increased pain of BLE, R>L Has +2 edema of R and +1 of L States it feels that her feet are very tight - no redness, warmth, or open areas noted States took extra lasix 20mg on Tuesday (to equal 60mg) Weight last week was 319 lbs, weight today is 317 lbs D/C'd aldactone per MD instructions on 01/10 Was planning to get BMP done on Tuesday but agreed to go tomorrow instead. Physical Exam: Pain 6 of right leg, Left knee-chronic Physical Exam Constitutional: Appearance: She is obese. HENT: Mouth/Throat: Mouth: Mucous membranes are moist. Neck: Musculoskeletal: Normal range of motion. Cardiovascular: Rate and Rhythm: Normal rate and regular rhythm. Pulses: Normal pulses. Heart sounds: Normal heart sounds. No murmur. No friction rub. No gallop. Pulmonary: Effort: Pulmonary effort is normal. Breath sounds: Normal breath sounds. Abdominal: General: Bowel sounds are normal. There is no distension. Palpations: Abdomen is soft. No Tenderness. Musculoskeletal: General: Tenderness (L knee) present. Right lower leg: Edema present. Left lower leg: Edema present. Comments: Limited ROM L knee Skin: General: Skin is warm and dry. Capillary Refill: Capillary refill takes less than 2 seconds. Neurological: General: No focal deficit present. Mental Status: She is alert and oriented to person, place, and time. Mental status is at baseline. Psychiatric: Mood and Affect: Mood normal. Thought Content: Thought content normal. Judgment: Judgment normal. Problems/Symptoms: Review of Systems Constitutional: Positive for fatigue. HENT: Negative. Eyes: Negative. Respiratory: Positive for shortness of breath (AVENDAÑO-at baseline). Negative for cough, chest tightness and wheezing. Cardiovascular: Positive for leg swelling (+2 RLE, +1 LLE) Gastrointestinal: Negative. Genitourinary: Negative. Musculoskeletal: Positive for arthralgias and gait problem. Allergic/Immunologic: Negative. Hematological: Negative. Psychiatric/Behavioral: Negative. Medication Reconciliation: (See medication list) Does patient take medications as ordered: Yes Patient Well Being: PHQ2/9: @[id number]@ Continues to work on wt loss along with her neighbor, alfonzo Sylvester Wt Loss Program support Ambulates in hallway or outside daily when able. Depression at times d/t pain and limited mobility but is making positive strides to improve physical situation which will improve mental health [facility] [phone] Patient's Goals of Care: 1. Wt loss 2. No falls 3. L TKR 4. Keep lowering A1C Treatment/Plan: T/C sent to Dr. White and Dr. Woodall Pt will go to lab tomorrow for BMP Meds as ordered/reviewed Ambulate with roller walker at ALL times o2 2lnc continuously cpap with 2l qhs Apap, tramadol and topical pain relievers for L knee pain Low na, ccd diet Wili wrap to BLE as tolerated Treatment(s) Given: Evaluation Patient's 'Red Flags': 1. Fall with injury 2. Increased edema 3. Fever 4. Cough 5. Yellow/green sputum Patient Needs to Remember: Call [facility] for red flags and prior to going to ER if possible Referrals Needed: none Reinforcement/Education: Reviewed HF symptom monitoring: -Weigh self [...] home safety: Create a fall proof home ? Clear floors of clutter, loose wires, throw rugs, and cords. ? Make sure halls, stairways, and entrances are well lit. ? Install a nightlight in your bedroom, hallway and bathroom. ? Install grab bars or handrails in the bathroom and on stairs. ? Use a non-skid tub/shower mat. ? Avoid climbing on a chair; instead use a step stool with a high handrail. ? Keep sidewalks and steps in good repair ? Keep steps and sidewalks free of snow and ice. Using aids to support and prevent falls ? If you have poor balance or have fallen in the past, consider additional support such as a cane or walker. ? Use a cane with good support and that is the proper length for you. ? Use a walker if a cane doesnt provide enough support. Avoid medications that increase the risk of falling by causing dizziness, change in sensation orslowed reflexes. ? Certain medicines may cause falls blood pressure pills, heart medicines, water pills, or sleeping pills. ? Be sure to understand each medicine that you are taking and any side effects that may occur. Improve your balance and flexibility with muscle strengthening exercises. Ask your health care provider for some exercises that will be right for you. Follow Up: Patient encouraged to call the intake phone number for all urgent but not emergent issues. Is the patient new to [facility] within the last 30 days? No, Assess appropriateness for upcoming telehealth visits. Cancel telehealth visits & schedule home visit with care pressure steamer tender(s)as indicated. Plan of care communicated to Provider: Yes Scheduled to follow up with patient in 2 days with T/C. Brooke Jose RN documented in this encounter Plan of Treatment Upcoming Encounters Date Type Specialty Care Team Description 01/24/2020 [facility]uled [facility] Brooke Jose RN [address] [place] [address] [phone] 02/04/2020 Office Visit Dermatology Apple Kaminski MD [address] [place] [address] [phone] 02/26/2020 Office Visit Cardiology Rey Woodall MD [address] [place] [address] [phone] 03/05/2020 Office Visit Pharmacy [facility] Moe Jeramie [address] [place] [address] 03/06/2020 Office Visit Orthopedics Zack Teague DO [address] [place] [address] [phone] 05/08/2020 Office Visit Family Medicine Kevin Whiteside DO [address] [place] [address] [phone] 07/11/2020 Imaging Radiology 11/27/2020 Office Visit Pulmonary Celsa Tafoya CRNP [address] [place] [address] [phone] Health Maintenance Due Date Last Done Comments [...] Documents on File Type Date Recorded Patient Terrazzo Worker 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
--- OUTSIDE RECORDS SUMMARY | 2023-06-01 05:29 | External Medical Summary | Summary of Care ---
Author Name Unknown Organization [place] [address] Care Team Providers Care Trade Show Manager Name Role Phone Kevin Whiteside DO Primary Care Provider Reason for Visit * Reason Comments [facility]: Acute Encounter Details Date Type Department Care Team Description 01/22/2020 Telephone [facility], [facility] [address] [facility] [place] [address] [facility] [address] [place] [address] [phone] [facility]: Acute Allergies Active Allergy [...] WITHIN [facility]) Inject 1.5 mg under the skin once a week. 15 mL 3 12/18/2019 Active colchicine 0.6 MG TabletIndications:Le ukocytoclastic vasculitis ([facility]) Take 1/2 tab daily 45 Tab 3 12/18/2019 Active Nortriptyline HCl (PAMELOR) 50 MG CapsuleIndications:F ibromyalgia Take 1 Cap by mouth at bedtime. 90 Cap 3 12/18/2019 Active gabapentin (NEURONTIN) 300 MG CapsuleIndications:T ype 2 diabetes mellitus with hemoglobin A1c goal of 7.0%-8.0% ([facility]) Take 1 Cap by mouth 3 [...] daily. 90 Tab 12/18/2019 Active Glucose Blood (RyMed TechnologiesUCH ULTRA BLUE) STRP Check sugars 3-4 [...] Coronavirus / COVID-19? No / Unsure 01/22/2020 9:13 AM EDT documented as of this encounter Miscellaneous Notes * Telephone Encounter - Anel Miranda CRNP - 01/22/2020 9:33 AM EDT Reviewed. Will await assessment from home visit today for further recommendations. TATIANA Menendez * Telephone Encounter - Chrystal Mooney RN - 01/22/2020 9:02 AM EDT [facility] r[facility] Acute Call Date: 01/22/2020 Time: 9:02 AM Name: Stephanie Camp : 1955 Caller: self Relationship to No chief complaint on file. HPI: Stephanie Camp is a 64 year old old female that is calling [facility] Intake to report increased swelling to right leg, foot on and off the past week but progressively worsening. ROS: Denies SOB, cough or congestion. Denies CP. States occasional dizziness when she lays down which resolves after a few moments. Denies N/V, B&B issues. States finished ABT on Tuesday for a bladder infection. States edema to BLE and right greater than left. States right foot, ankle and 4 inches above ankle increased edema. States area red and this is increased. Denies any open areas or drainage. States neuropathy to foot so unable to say if area is hot to touch. States history of blood clots in this leg. States weight is 317 and this is down a pound. Uses personal scale. States ankle feels thick, throbs when walking on it. Denies falls, injuries. Nursing Assessment: Patient's chief complaint for this call: See above Pain See above Baseline Assessment Able to performing ADLs at baseline (walking, daily tasks, etc.): Yes Chief Complaint is related to a chronic condition: Unknown Patient prescribed oxygen? No Patient has been ordered DME equipment (assistive devices, respiratory equipment, etc.): Yes Describe DME devices: walker Patient is using DME device as directed: Yes Medication Reconciliation: (See medication list) Received flu shot this season: Yes Taking medication as ordered: Yes took 60 mg lasix on Tuesday and Tuesday to see if this would help edema. States did not help much. was taken off her spirolactone a week ago Tuesday dueto her K being high. Medications ordered/taking to treat reason for call: No Heart failure symptoms: Yes Is Diuretic Titration Protocol (DTP) ordered? No Describe Diuretic Titration Protocol (DTP): none noted Diuretic Titration Protocol (DTP) activated: acute visit with RN COPD exacerbation symptoms: No Reinforcement Education: Elevate legs as much as possible. Meds as directed. Monitor sodium and fluid intake. Aware Intake will reach out to [facility] for further advice, possible acute visit. Treatment/Plan: (need to report) Level of call: Acute Appointment scheduled for same day: Yes Process Tank Tender Provider Name: Blaire Jose RN Treatment plan until appointment: see above. [facility] Intake Chart to [facility], PCP, RN, Cardiology. Call back instructions provided to patient. documented in this encounter Plan of Treatment Upcoming Encounters Date Type Specialty Care Team Description 01/22/2020 Home Visit [facility] Brooke Jose RN [address] [place] [address] [phone] 02/04/2020 Office Visit Dermatology Apple Kaminski MD [address] [place] [address] [phone] 02/26/2020 Office Visit Cardiology Rey Woodall MD [address] [address] [phone] 03/05/2020 Office Visit Pharmacy Danuta Ordaz [facility] [place] [address] [address] 03/06/2020 Office Visit Orthopedics Zack Teague DO [address] [place] [address] [phone] 05/08/2020 Office Visit Family Medicine Kevin Whiteside, [address] [place] [place] [address] [phone] 07/11/2020 Imaging Radiology 11/27/2020 Office Visit Pulmonary Celsa Tafoya CRNP [address] [place] [address] [phone] Health Maintenance Due Date Last Done Comments [...] Documents on File Type Date Recorded Patient Membership Sales Manager Expl 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
--- OUTSIDE RECORDS SUMMARY | 2023-06-01 05:29 | External Medical Summary | Summary of Care ---
Author Name Unknown Organization [place] [address] Care Team Providers Care Mechanical Fitter Name Role Phone Stevo Kevin Ocampomelinda Primary Care Provider Reason for Visit * Reason Comments [facility]: Acute Encounter Details Date Type Department Care Team Description 01/22/2020 Telephone [facility], [facility] 132 [facility] [place] [address] Brooke Jose, RN 132 [place] [address] [phone] [facility]: Acute Allergies Active Allergy [...] 3 08/30/2018 Active Blood Glucose Monitoring Suppl (Bloom EnergyTOUCH ULTRA 2) w/Device KIT Use to [...] ukocytoclastic vasculitis ([facility]) Take 1/2 tab daily 45 Tab 3 [...] daily. 90 Tab 12/18/2019 Active Glucose Blood (IsentropicUCH ULTRA BLUE) STRP Check sugars 3-4 times [...] 10/14/2014 Overview: ICD-10 update of inactive term [place] filter in place 08/19/2014 History of pulmonary embolus (PE) 2013 Statin intolerance 07/16/2014 HTN, goal below 130/80 02/22/2014 Venous insufficiency 02/07/2013 ELISSA (obstructive sleep apnea) 09/16/2011 Overview: CPAP 11 cwp Mild, AHI 11.3 but with significant nocturnal hypoxemia Dicks Nocturnal hypoxemia 07/22/2011 Overview: Nocturnal ox 2 LPM 07/20/11 -- mean 84%, low 76%, time <89% 6:21 hours, TINY 47 [facility] Postsurgical hypothyroidism 06/16/2011 ELLIE (generalized anxiety disorder) [...] Specialty Care Team Description 01/24/2020 Scheduled Telephone [facility] Brooke Jose RN [address] [place] [address] [phone] 02/04/2020 Office Visit Dermatology Apple Kaminski MD 200 [place] [address] [phone] 02/26/2020 Office Visit Cardiology Rey Woodall MD [address] [place] [address] [phone] 03/05/2020 Office Visit Pharmacy Ord[facility] [address] [place] [address] 03/06/2020 Office Visit Orthopedics Zack Teague, DO [address] [place] [address] [phone] 05/08/2020 Office Visit Family Medicine Kevin Whiteside, [address] [place] [address] [phone] 07/11/2020 Imaging Radiology 11/27/2020 Office Visit Pulmonary Celsa Tafoya CRNP [address] [place] [address] [phone] Health Maintenance Due Date Last Done Comments [...] Documents on File Type Date Recorded Patient Brusher Expl 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
--- OUTSIDE RECORDS SUMMARY | 2023-06-01 05:29 | External Medical Summary ---
Author Name Unknown Address [facility] [address] [place] [id number] Phone Organization K01:[facility] [address] [id number] Laboratory Report Ordering Provider Test Date Status LONG CAMARENA 01/23/2020 11:11:00 Final Observation Date Value Abnormality Reference (Units ) Status Vitamin B12 01/23/2020 18:23 271 [id number] (p g/mL) Final Performing Location [address] [address]
--- OUTSIDE RECORDS SUMMARY | 2023-06-01 05:29 | External Medical Summary | Summary of Care ---
Author Name Unknown Organization [place] [address] Care Team Providers Care Photoflash Powder Mixer Name Role Phone Migue Whiteside DO Primary Care Provider Reason for Visit * Reason Comments Medication Refill Encounter Details Date Type Department Care Team Description 01/17/2020 Refill Family Practice [facility] [address] [place] [address] Migue Whiteside DO [address] [place] [address] [phone] Allergies Active Allergy Reactions Severity Noted Date [...] Active colchicine 0.6 MG TabletIndications:L eukocytoclastic vasculitis ([facility]) Take 1/2 tab [...] daily. 90 Tab 12/18/2019 Active Glucose Blood (WistiaUCH ULTRA BLUE) STRP Check sugars 3-4 times [...] PER DAY 10 mL 0 01/17/2020 Active insulin aspart (INSULIN ASPART) 100 UNIT/ML injection USE IN INSULIN PUMP UP TO 200 UNITS PER DAY 10 mL 0 01/17/2020 0 Discontinue d(Refill) Hospital, Clinic, or Other [...] encounter Miscellaneous Notes * Addendum Note - Ernesto Peña [facility] - 01/17/2020 4:35 PM EDT Addended by: ERNESTO PEÑA on: 01/17/2020 04:35 PM Modules accepted: Orders * Telephone Encounter - Ernesto Peña [facility] - 01/17/2020 4:35 PM EDT Signed Prescriptions: Disp Refills insulin aspart (INSULIN ASPART) 100 UNIT/M*10 mL 0 Sig: NOVOLOG Vial- USE IN INSULIN PUMP UP TO 200 UNITS PER DAYAuthorizing Provider: MIGUE WHITESIDE User: ERNESTO PEÑA * Addendum Note - Hermelinda [facility]ides [facility] [...] Office Visit: 05/08/2020 Scheduled Provider(s): Migue Whiteside, If no future appointments scheduled, and last appointment is greater than a year ago, please schedule patient for a follow-up appointment Last date the medication was ordered: 01/17/20 Pharmacy: [facility] [address] [place] [address] [place] Is this request for a controlled substance?No [...] PM * Telephone Encounter - Sapna Lay [facility] - 01/17/2020 3:39 PM EDT Signed Prescriptions: Disp Refills insulin aspart (INSULIN ASPART) 100 UNIT/M*10 mL 0 Sig: USE IN INSULIN PUMP UP TO 200 UNITS PER DAYAuthorizing Provider: MIGUE WHITESIDE User: SAPNA LAY * Telephone Encounter - Isha Vides [facility] - 01/17/2020 3:24 PM EDT Pt is [...] date the medication was ordered: [facility] [address] [address] Is this request for a [...] Office Visit Dermatology Apple Kaminski MD [address] [place] [address] [phone] 02/26/2020 Office Visit Cardiology Rey Woodall MD [address] [place] [address] [phone] 03/05/2020 Office Visit Pharmacy [facility] [address] [place] [address] 03/06/2020 Office Visit Orthopedics Zack Teague, [address] [place] [address] [phone] 05/08/2020 Office Visit Family Medicine Migue Whiteside, [address] [place] [place] [address] [phone] 07/11/2020 Imaging Radiology 11/27/2020 Office Visit Pulmonary Celsa Tafoya CRNP [address] [place] [address] Health Maintenance Due Date Last Done Comments [...] on File Type Date Recorded Patient Hospital Mortician Expl 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
--- OUTSIDE RECORDS SUMMARY | 2023-06-01 05:29 | External Medical Summary | Summary of Care ---
Author Name Unknown Organization [place] [address] Care Team Providers Care Broom Bundler Name Role Phone Carey Whitesidelidia Ocampomelinda Primary Care Provider Reason for Visit * Reason Comments Encounter Created in Error Encounter Details Date Type Department Care Team Description 01/22/2020 Telephone [facility], [facility] 132 [facility] [place] [address] Brooke Jose RN [address] [facility] [place] [address] [phone] Encounter Created in Error Allergies Active Allergy [...] MG TabletIndications:Le ukocytoclastic vasculitis ([facility]) Take 1/2 tab daily 45 Tab 3 [...] daily. 90 Tab 12/18/2019 Active Glucose Blood (Quantum VoyageUCH ULTRA BLUE) STRP Check sugars 3-4 [...] 76%, time <89% 6:21 hours, TINY 47 [facility] Postsurgical hypothyroidism 06/16/2011 ELLIE (generalized anxiety [...] [facility] Brooke Jose RN [address] [employer] [place] [address] [phone] 02/04/2020 Office Visit Dermatology Apple Kaminski MD [address] [place] [address] [place] [address] [phone] 02/26/2020 Office Visit Cardiology Rey Woodall MD [address] [place] [address] [phone] 03/05/2020 Office Visit Pharmacy [facility] [place] [address] [place] [address] 03/06/2020 Office Visit Orthopedics Zack Teague, DO [address] [place] [address] [phone] 05/08/2020 Office Visit Family Medicine Kevin Whiteside, [address] [place] [address] [phone] 07/11/2020 Imaging Radiology 11/27/2020 Office Visit Pulmonary Celsa Tafoya CRNP [address] [place] [address] [phone] Health Maintenance Due Date Last Done Comments [...] on File Type Date Recorded Patient Assembler Type Bar And Segment Expl 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
--- OUTSIDE RECORDS SUMMARY | 2023-06-01 05:29 | External Medical Summary | Summary of Care ---
Author Name Unknown Organization [place] [address] Care Team Providers Care Stripe Marker Name Role Phone Carey Whitesidelidia Ocampomelinda Primary Care Provider Reason for Visit * Reason Comments Test Results Encounter Details Date Type Department Care Team Description 01/09/2020 Telephone Nephrology 2nd Floor, [place] [address] [facility] [place] [address] Gia White MD [facility] [place] [address] Test Results Allergies Active Allergy Reactions Severity Noted Date Comments Pollen 05/18/2019 Heparin 09/04/2009 Heparin Induced Thrombocytopenia Empagliflozin Other (Please comment) Medium 05/17/2018 3 yeast infections in 6 weeks after starting Morphine And Related 09/16/1997 Hallucinations Tetanus Toxoid Other (Please comment) 06/15/2011 Passed out documented as of this encounter (statuses as of 01/09/2020) Medications Medication Sig Dispensed Refills Start Date [...] Active colchicine 0.6 MG TabletIndications:Le ukocytoclastic vasculitis ([facility]) Take 1/2 [...] 12/18/2019 Active Vitamin D, Ergocalciferol, 1.25 MG ([address] UT) CapsuleIndications:V itamin D deficiency Take 1 [...] as of this encounter (statuses as of 01/09/2020) Active Problems Problem Noted Date Primary osteoarthritis [...] Obesity Taxonomy ICD-10 update of inactive term Uncontrolled type 2 diabetes mellitus with stage 3 chronic kidney disease, with long-term current use of insulin 05/24/2017 Gastroesophageal reflux disease with eso phagitis 03/04/2017 [...] as of this encounter (statuses as of 01/09/2020) Resolved Problems Problem Noted Date Resolved Date Other atherosclerosis of lorrie martinez arteries of extremities, left leg 02/26/2019 11/20/2019 Impetigo 09/27/2018 05/14/2019 Vaginal karmen 07/13/2018 08/26/2018 Hypervolemia 07/13/2018 08/26/2018 Heparin-induced thrombocytopenia 06/12/2018 08/26/2018 ELSIE (acute kidney injury) 06/12/20182017 Kidney disease, chronic, stage III (GFR 30-59 [...] as of this encounter (statuses as of 01/09/2020) Immunizations Name Administration Dates Next Due Pneumococcal [...] Telephone Encounter - Teri Cullen RN - 01/09/2020 2:29 PM EDT Reviewed results and new orders with pt. Pt verbalized understanding * Telephone Encounter - Teri Cullen RN - 01/09/2020 2:27 PM EDT ----- Message from Gia White MD sent at 01/09/2020 2:22 PM EDT ----- Patient has a UTI. Recommend starting ciprofloxacin 500 mg p.o. daily for 7 days. Please take with yorghut. Gia White MD documented in this encounter Plan of Treatment Upcoming Encounters Date Type Specialty Care Team Description 01/11/2020 Telemedicine Nephrology Gia White MD 21 [facility] [place] [place] [address] [phone] 02/04/2020 Office Visit Dermatology Apple Kaminski MD 200 [facility] [place] [address] [phone] 02/07/2020 Office Visit Orthopedics Zack Teague DO [address] [address] [phone] 02/26/2020 Office Visit Cardiology Rey Woodall MD [address] [address] 03/05/2020 Office Visit Pharmacy [facility] [place] [address] [place] [address] 05/08/2020 Office Visit Family Medicine Kevin Whiteside DO [address] [address] [phone] 07/11/2020 Imaging Radiology 11/27/2020 Office Visit Pulmonary Celsa Tafoya CRNP [address] [place] [address] [phone] Health Maintenance Due Date Last Done Comments Zoster Vaccines (3 of 3) 01/02/2020 11/07/2019, 11/24 Yearly B-12 03/14/2020 03/14/2019, 05/16/2018 DIABETES-EYE EXAM 04/05/2020 04/05/2019, (Done elsewhere), 12/18/2009, Additional history exists DIABETES-HGBA1C EVERY 6 MONTHS 05/07/2020 11/07/2019, 08/09/2019, 03/14/2019, Additional history exists CKD GFR USE SMARTSET 38674 07/05/202001/03, 12/24/2019, 12/05/2019, Additional history exists BREAST CANCER SCREENING DISCUSSION YEARLY AGES 40-75 07/10/2020 07/10/2019, 06/23/2018, 05/09/2015, Additional history exists DIABETES-FOOT EXAM 11/07/2020 11/07/2019, 0 01/01/2019, 12/29/2017, Additional history exists CKD HGB USE SMARTSET 16029 11/29/202011/29, 09/10/2019, 07/20/2019, Additional history exists CKD PHOS USE SMARTSET 10569 12/23/202011/26, 11/07/2019, 12/29/2017, Additional history exists DIABETES-URINE MICROALBUMIN EVERY 12 MONTHS 12/23/2020 12/24/2019, 11/30/2019, 05/24/2019, Additional history exists PAP SMEAR-EVERY 3 YRS,AGES [...] Documents on File Type Date Recorded Patient Cook Ice Cream Expl 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
--- OUTSIDE RECORDS SUMMARY | 2023-06-01 05:29 | External Medical Summary | Summary of Care ---
Author Name Unknown Organization [place] [address] Care Team Providers Care Construction Supervisor/Carpenter Name Role Phone Migue Whiteside DO Primary Care Provider Reason for Visit * Reason Comments Medication Refill Encounter Details Date Type Department Care Team Description 01/17/2020 Refill Family Practice [facility] [address] [place] [address] Migue Whiteside DO [address] [place] [address] [phone] Allergies Active Allergy Reactions Severity Noted Date [...] Active colchicine 0.6 MG TabletIndications:Le ukocytoclastic vasculitis ([facility]) Take 1/2 [...] daily. 90 Tab 12/18/2019 Active Glucose Blood (SearchboxUCH ULTRA BLUE) STRP Check sugars 3-4 times [...] 10/14/2014 Overview: ICD-10 update of inactive term [place] filter in place 08/19/2014 History of pulmonary [...] encounter Miscellaneous Notes * Telephone Encounter - Sapna Lay [facility] - 01/17/2020 3:39 PM EDT Signed Prescriptions: Disp Refills insulin aspart (INSULIN ASPART) 100 UNIT/M*10 mL 0 Sig: USE IN INSULIN PUMP UP TO 200 UNITS PER DAYAuthorizing Provider: MIGUE WHITESIDE User: SAPNA LAY * Telephone Encounter - Isha Sher CPhT - 01/17/2020 3:24 PM EDT Pt [...] date the medication was ordered: new Pharmacy: [facility] [address] [address] Is this request for a [...] Office Visit Dermatology Apple Kaminski MD [address] [place] [address] [phone] 02/26/2020 Office Visit Cardiology Rey Woodall MD [address] [place] [id number] 03/05/2020 Office Visit Pharmacy Ord[facility] [place] [address] [place] [phone] 03/06/2020 Office Visit Orthopedics Zack Teague DO [address] [place] [phone] 05/08/2020 Office Visit Family Medicine Migue Whiteside, [address] [place] [address] [phone] 07/11/2020 Imaging Radiology 11/27/2020 Office Visit Pulmonary Celsa Tafoya, TATIANA 132 [facility] [place] [address] [phone] Health Maintenance Due Date Last Done Comments [...] on File Type Date Recorded Patient Sales Marketing Manager Expl anation Advanced Directive 08/22/2009 [...]
--- OUTSIDE RECORDS SUMMARY | 2023-06-01 05:29 | External Medical Summary | Summary of Care ---
Author Name Unknown Organization [place] [address] Care Team Providers Care Servomechanism Assembler Name Role Phone Kevin Whiteside DO Primary Care Provider Reason for Visit * Reason Comments Medical Records Request Encounter Details Date Type Department Care Team Description 01/18/2020 Telephone Family Practice [facility] [address] [facility] [place] [id number] Kevin Whiteside DO [address] [facility] [place] [address] [phone] Medical Records Request Allergies Active Allergy Reactions Severity Noted Date Comments Pollen 05/18/2019 Heparin 09/04/2009 Heparin Induced Thrombocytopenia Empagliflozin Other (Please comment) Medium 05/17/2018 3 yeast infections in 6 weeks after starting Morphine And Related 09/16/1997 Hallucinations Tetanus Toxoid Other (Please comment) 06/15/2011 Passed out documented as of this encounter (statuses as of 01/18/2020) Medications Medication Sig Dispensed Refills Start Date [...] insulin ([facility]) Inject 1.5 mg under the skin once a week. 15 mL 3 12/18/2019 Active colchicine 0.6 MG TabletIndications:Le ukocytoclastic vasculitis ([facility]) Take 1/2 tab daily 45 Tab 3 12/18/2019 Active Nortriptyline HCl (PAMELOR) 50 MG CapsuleIndications:F ibromyalgia Take 1 Cap by mouth at bedtime. 90 Cap 3 12/18/2019 Active gabapentin (NEURONTIN) 300 MG CapsuleIndications:T ype 2 diabetes mellitus with hemoglobin A1c goal of 7.0%-8.0% ([facility]) Take 1 Cap by mouth 3 [...] daily. 90 Tab 12/18/2019 Active Glucose Blood (CumulocityUCH ULTRA BLUE) STRP Check sugars 3-4 times [...] as of this encounter (statuses as of 01/18/2020) Active Problems Problem Noted Date Uncontrolled type [...] <89% 6:21 hours, TINY [facility] Postsurgical hypothyroidism 06/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 documented as of this encounter (statuses as of 01/18/2020) Resolved Problems Problem Noted Date Resolved Date [...] as of this encounter (statuses as of 01/18/2020) Immunizations Name Administration Dates Next Due Pneumococcal [...] Telephone Encounter - Xavier Peterson OSA - 01/18/2020 10:32 AM EDT [facility] is requesting medical records for continuation of care. Forwarded to [facility] documented in this encounter Plan of Treatment Upcoming Encounters Date Type Specialty Care Team Description 02/04/2020 Office Visit Dermatology Apple Kaminski MD [address] [place] [address] [phone] 02/26/2020 Office Visit Cardiology Rey Woodall MD [address] [place] [address] [phone] 03/05/2020 Office Visit Pharmacy Orlin [facility] [place] [address] [place] [id number] 03/06/2020 Office Visit Orthopedics Zack Teague, [address] [place] [address] [phone] 05/08/2020 Office Visit Family Medicine Kevin Whiteside, [address] [place] [address] [phone] 07/11/2020 Imaging Radiology 11/27/2020 Office Visit Pulmonary Celsa Tafoya CRNP [address] [place] [address] [phone] Health Maintenance Due Date Last Done Comments [...] Documents on File Type Date Recorded Patient Statistical Geneticist Expl 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
--- OUTSIDE RECORDS SUMMARY | 2023-06-01 05:30 | External Medical Summary ---
Author Name Unknown Address [address] [place] [address] Phone Organization K01:[place] [id number] Laboratory Report Ordering Provider Test Date Status TRACY LARRY 12/24/2019 07:26:00 Final Observation Date Value Abnormality Reference (Units ) Status ANCA Ab Ser Ql IF 12/25/2019 10:27 NEGATIVE NEG (TITER) Final ANCA Ab Ser Ql IF 12/25/2019 10:27 NEGATIVE NEG (TITER) Final Annotation Comment 12/25/2019 10:27 Negative for ANCA Final Performing Location [address] [address]
--- OUTSIDE RECORDS SUMMARY | 2023-06-01 05:30 | External Medical Summary | Summary of Care ---
Author Name Unknown Organization [place] [address] Care Team Providers Care Grade Recorder Name Role Phone Kevin Whiteside DO Primary Care Provider Reason for Visit * Reason Comments [facility]: Maintenance Encounter Details Date Type Department Care Team Description 12/13/2019 Telephone [facility], [facility] [address] [facility] [place] [address] [facility] Nurse [facility] [address] [facility] [place] [address] [phone] [facility]: Maintenance Allergies Active Allergy Reactions Severity Noted Date Comments Pollen 05/18/2019 Heparin 09/04/2009 Heparin Induced Thrombocytopenia Empagliflozin Other (Please comment) Medium 05/17/2018 3 yeast infections in 6 weeks after starting Morphine And Related 09/16/1997 Hallucinations Tetanus Toxoid Other (Please comment) 06/15/2011 Passed out documented as of this encounter (statuses as of 01/04/2020) Medications Medication Sig Dispensed Refills Start Date [...] 01/26/2019 Active clobetasol propionate (TEMOVATE) 0.05 % ointmentIndication [...] 0 11/28/2019 Active traMADol (ULTRAM) 50 MG TabletIndications: Chronic pain syndrome Take 1 Tab by mouth every 8 hours as needed for Pain, Severe. 90 Tab 0 12/10/2019 Active Hospital, Clinic, or Other Facility Administered Medication Ordered Dose Route Frequency Start Date End Date Status levalbuterol (XOPENEX) inhalation solution 0.63 mgIndications:Wheezing 0.63 mg NEBULIZER Q4H PRN 09/12/2019 Ac tive documented as of this encounter (statuses as of 01/04/2020) Active Problems Problem Noted Date Primary osteoarthritis [...] 10/14/2014 Overview: ICD-10 update of inactive term [place] filter in place 08/19/2014 History of pulmonary [...] as of this encounter (statuses as of 01/04/2020) Resolved Problems Problem Noted Date Resolved Date [...] as of this encounter (statuses as of 01/04/2020) Immunizations Name Administration Dates Next Due Pneumococcal [...] file Travel History Travel Start Travel End documented as of this encounter Miscellaneous Notes * Telephone Encounter - Brianna Luther RN - 12/13/2019 1:30 PM EDT Attempted to call patient to see how she was doing after call to triage last evening. Left [facility] number to call back documented in this encounter Plan of Treatment Upcoming Encounters Date Type Specialty Care Team Description 01/11/2020 Telemedicine Nephrology Gia White MD [address] [place] [address] [phone] 02/04/2020 Office Visit Dermatology Apple Kaminski MD [address] [place] [address] [phone] 02/07/2020 Office Visit Orthopedics Zack Teague DO [address] [facility] [place] [address] 02/26/2020 Office Visit Cardiology Rey Woodall MD [address] [place] [address] [phone] 03/05/2020 Office Visit Pharmacy [facility] [address] [place] [address] 05/08/2020 Office Visit Family Medicine Kevin Whiteside DO [address] [place] [address] [phone] 07/11/2020 Imaging Radiology 11/27/2020 Office Visit Pulmonary Celsa Tafoya CRNP [address] [place] [address] [phone] Health Maintenance Due Date Last Done Comments Zoster Vaccines (3 of 3) 01/02/2020 11/07/2019, 11/24 Yearly B-12 03/14/2020 03/14/2019, 05/16/2018 DIABETES-EYE EXAM 04/05/2020 04/05/2019, (Done elsewhere), 12/18/2009, Additional history exists DIABETES-HGBA1C EVERY 6 MONTHS 05/07/2020 11/07/2019, 08/09/2019, 03/14/2019, Additional history exists CKD GFR USE SMARTSET 17414 06/25/202012/23, 12/05/2019, 11/30/2019, Additional history exists BREAST CANCER SCREENING DISCUSSION YEARLY AGES 40-75 07/10/2020 07/10/2019, 06/23/2018, 05/09/2015, Additional history exists DIABETES-FOOT EXAM 11/07/2020 11/07/2019, 0 01/01/2019, 12/29/2017, Additional history exists CKD HGB USE SMARTSET 86698 11/29/202011/29, 09/10/2019, 07/20/2019, Additional history exists CKD PHOS USE SMARTSET 73786 12/23/202011/26, 11/07/2019, 12/29/2017, Additional history exists DIABETES-URINE [...] on File Type Date Recorded Patient Stock Crane Operator Expl 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
--- OUTSIDE RECORDS SUMMARY | 2023-06-01 05:30 | External Medical Summary ---
Author Name Unknown Address [address] [place], [place] [address] Phone Organization K09:[facility] [address] [place] [address] Laboratory Report Ordering Provider Test Date Status TRACY LARRY 12/24/2019 07:26:00 Final Observation Date Value Abnormality Reference (Units ) Status BUN 12/24/2019 09:07 32 Above high normal 6-20 (mg/dL) Final Creatinine 12/24/2019 09:07 2.2 Above high normal 0.5- 1.0 (mg/dL) Final E Glom Filt Rate 12/24/2019 09:07 22.8 Below low normal >60 Final Performing Location [facility] [place] [address] [place] [address]
--- OUTSIDE RECORDS SUMMARY | 2023-06-01 05:30 | External Medical Summary ---
Author Name Unknown Address [facility] [place] [address] Phone Organization K01:[place] [address] [place] [address] Laboratory Report Ordering Provider Test Date Status TRACY LARRY 12/24/2019 07:28:00 Final Observation Date Value Abnormality Reference (Units ) Status Color Ur Auto 12/24/2019 13:12 STRAW Abnormal YEL Final Clarity, Urine 12/24/2019 13:12 SLIGHTLY CLOUDY Abnormal CLEAR Final Glucose Ur Strip.auto-nc 12/24/2019 13:12 NEGATIVE NEG (mg/dL) Final Bilirub Ur Ql Strip.auto 12/24/2019 13:12 NEGATIVE NEG Final Ketones Ur Strip.auto-[facility] 12/24/2019 13:12 NEGATIVE NEG (mg/dL) Final Specific gravity, Urine 12/24/2019 13:12 1.010 1.003-1.030 Final Hemoglobin [Presence] in Urine by Automated test strip 12/24/2019 13:12 NEGATIVE NEG Final pH, Urine 12/24/2019 13:12 6.0 5.0-7.5 (units) Final Prot Ur Strip.auto-[facility] 12/24/2019 13:12 NEGATIVE NEG (mg/dL) Final Urobilinogen Ur Strip.auto-nc 12/24/2019 13:12 NORMAL NORM (mg/dL) Final Nitrite Ur Ql Strip.auto 12/24/2019 13:12 NEGATIVE NEG Final Leukocyte esterase [Presence} in Urine by Automated test strip 12/24/2019 13:12 LARGE Abnormal NEG Final Bacteria/area UmS Auto 12/24/2019 13:12 >200 Abnormal [id number] (/HPF) Final WBC No./area UrnS Auto 12/24/2019 13:12 50+ Abnormal U02 (/HPF) Final RBC No./area UrnS Auto 12/24/2019 13:12 0-2 U02 (/HPF) Final Performing Location [facility] [address] [facility] [address]
--- OUTSIDE RECORDS SUMMARY | 2023-06-01 05:30 | External Medical Summary ---
Author Name Unknown Address [address] [facility] [place] [address] Phone Organization K0G:[facility] [place] [address] [facility] [place] [address] Laboratory Report Ordering Provider Test Date Status TRACY LARRY 01/04/2020 10:53:00 Final Observation Date Value Abnormality Reference (Units ) Status BUN 01/04/2020 14:10 37 Above high normal 6-20 (mg/dL) Final Creatinine 01/04/2020 14:10 1.9 Above high normal 0.5- 1.0 (mg/dL) Final E Glom Filt Rate 01/04/2020 14:10 27.9 Below low normal >60 Final Performing Location [facility] [address] [facility] [place] [address]
--- OUTSIDE RECORDS SUMMARY | 2023-06-01 05:30 | External Medical Summary ---
Author Name Unknown Address Unknown Organization R:IT USE ONLY!!! Laboratory Report Ordering Provider Test Date Status TRACY LARRY 01/04/2020 10:53:00 Final Observation Date Value Abnormality Reference (Units ) Status Source 01/04/2020 11:05 CLEAN CATCH URINE Final Bacteria XXX Cult 01/06/2020 12:19 10,000 TO 100,000 COLONIES/ML KLEBSIELLA PNEUMONIAE Abnormal Final Bacteria XXX Cult 01/06/2020 12:19 LESS THAN 10,000 COLONIES/ML NORMAL MELISSA ONE COLONY TYPE Final REPORT STATUS 01/06/2020 16:30 01/06/2020 FINAL Final Bacteria Islt Cult 01/06/2020 12:19 KLEBSIELLA PNEUMONIAE Abnormal Final Performing Location IT USE ONLY!!!
--- OUTSIDE RECORDS SUMMARY | 2023-06-01 05:30 | External Medical Summary ---
Author Name Unknown Address [facility] [place] [address] Phone Organization K01:[place] [address] [place] [id number] Laboratory Report Ordering Provider Test Date Status TRACY LARRY 12/24/2019 07:28:00 Final Observation Date Value Abnormality Reference (Units ) Status Protein, Urine 12/24/2019 13:19 6 (mg/dL) Final Creat Ur-sCnc 12/24/2019 13:19 52 (mg/dL) Final Prot/Creat Ur-Rto 12/24/2019 13:19 115 <150 (mg/g) Final Performing Location [facility] [address] [place] [id number]
--- OUTSIDE RECORDS SUMMARY | 2023-06-01 05:30 | External Medical Summary | Summary of Care ---
Author Name Unknown Organization [place] [address] Care Team Providers Care Penetration Tester Name Role Phone Migue Whiteside DO Primary Care Provider Reason for Referral * Medication Prior Authorization (Routine) Status Reason Specialty Diagnoses / Procedures Referred By Contact Referred To Contact Pending Review Diagnoses Leukocytoclastic vasculitis (HCC) Migue Whiteside DO [address] [place] [address] Reason for Visit * Reason Comments Medication Refill Encounter Details Date Type Department Care Team Description 12/18/2019 Refill [facility] [address] [place] [id number] Migue Whiteside DO [address] [place] [address] [phone] DM type 2 nursing care encounter (HCC); Uncontrolled type 2 diabetes mellitus with stage 3 chronic kidney disease, with long-term current use of insulin (HCC); Leukocytoclastic vasculitis (HCC); Fibromyalgia; Type 2 diabetes mellitus with hemoglobin A1c goal of 7.0%-8.0% (HCC); Moderate episode of recurrent major depressive disorder (HCC); Primary osteoarthritis of both knees; POSTSURGICAL HYPOTHYROID; Vitamin D deficiency; Chronic diastolic congestive heart failure (HCC); Restless legs syndrome; HTN, goal below 130/80; Acute diastolic congestive heart failure (HCC); Body mass index (BMI) of 50.0 to 59.9 in adult (HCC); Hypoxemia; ELISSA (obstructive sleep apnea); HTN, goal below 140/80 Allergies Active Allergy Reactions Severity Noted Date Comments Pollen 05/18/2019 Heparin 09/04/2009 Heparin Induced Thrombocytopenia Empagliflozin Other (Please comment) Medium 05/17/2018 3 yeast infections in 6 weeks after starting Morphine And Related 09/16/1997 Hallucinations Tetanus Toxoid Other (Please comment) 06/15/2011 Passed out documented as of this encounter (statuses as of 12/18/2019) Medications Medication Sig Dispensed Refills Start Date [...] Pen Syringe Dosing Unit 1 11/15/2019 Active clonazePAM (KLONOPIN) 0.5 MG TabletIndications:A nxiety state TAKE ONE TABLET BY MOUTH TWICE DAILY 60 Tab 0 11/27/2019 Active oxygen GASIndications:ELISSA (obstructive sleep apnea) 2 [...] insulin (FORMERLY [facility]) Inject 1.5 mg under the skin once a week. 15 mL 12/18/2019 Active colchicine 0.6 MG TabletIndications:L eukocytoclastic vasculitis (FORMERLY [facility]) Take 1/2 tab daily 45 Tab 3 12/18/2019 Active Nortriptyline HCl (PAMELOR) 50 MG CapsuleIndications: Fibromyalgia Take 1 Cap by mouth at bedtime. 90 Cap 12/18/2019 Active gabapentin (NEURONTIN) 300 MG CapsuleIndications: Type 2 diabetes mellitus with hemoglobin A1c goal of 7.0%-8.0% (FORMERLY [facility]) Take 1 Cap by mouth 3 times a day. 270 Cap 12/18/2019 Active DULoxetine (CYMBALTA) 60 MG CPEPIndications:Fib romyalgia,Moderate episode of recurrent major depressive disorder ([facility]),Primary osteoarthritis of both knees Take 1 Cap [...] other meds) 90 Tab 3 12/18/2019 Active Vitamin D, Ergocalciferol, 1.25 MG (73610 UT) CapsuleIndications: Vitamin D deficiency Take 1 Cap by mouth every 4 weeks. 13 Cap 12/18/2019 Active DULoxetine (CYMBALTA) 30 MG CPEP Take 1 Cap by mouth daily. Take along with the 60mg dose for totally of 90mg daily. Do not cut, crush or chew 90 Cap 3 12/18/2019 Active spironolactone (ALDACTONE) 25 MG Tablet Take 1 Tab by mouth daily. 90 Tab 3 12/18/2019 Active Magnesium Oxide 400 (241.3 mg) Tablet Take 400 mg by mouth daily. 90 Tab 3 12/18/2019 Active furosemide (LASIX) 40 MG TabletIndications:C hronic diastolic congestive heart failure (HCC) Take 1 Tab by mouth daily. 90 Tab 3 12/18/2019 Active Glucose Blood (Next Generation SystemsUCH ULTRA BLUE) STRP Check sugars 3-4 times [...] mouth daily. 90 Cap 3 12/18/2019 Active PRILOSEC 20 MG PO CPDR one tablet daily 0 0 Discontinue d(Refill) metoprolol tartrate (LOPRESSOR) 25 MG TabletIndications:H TN, goal below 130/80,Acute diastolic congestive heart failure (HCC),Body mass index (BMI) of 50.0 to 59.9 in adult (HCC),Hypoxemia,ELISSA (obstructive sleep apnea),HTN, goal below 140/80 Take 0.5 Tabs by mouth 2 times a day. 90 Tab 3 02/13/2019 0 Discontinue d(Refill) rOPINIRole (REQUIP) 2 MG TabletIndications:R estless legs syndrome Take 1 Tab by mouth at bedtime. 90 Tab 3 03/07/2019 0 Discontinue d(Refill) traZODone (DESYREL) 50 MG Tablet Take 1 Tab by mouth at bedtime. 30 Tab 5 04/04/2019 0 Discontinue d(Refill) Glucose Blood (ONETOUCH ULTRA BLUE) STRP Check sugars 3-4 times daily 400 Strip 2 04/21/2019 0 Discontinue d(Refill) furosemide (LASIX) 40 MG TabletIndications:C hronic diastolic congestive heart failure (HCC) Take 40 mg by mouth daily. 180 Tab 3 05/15/2019 0 Discontinue d(Refill) Magnesium Oxide 400 (241.3 mg) Tablet Take 400 mg by mouth daily. 90 Tab 3 06/20/2019 0 Discontinue d(Refill) spironolactone (ALDACTONE) 25 MG Tablet Take 1 Tab by mouth daily. 90 Tab 3 07/10/2019 0 Discontinue d(Refill) DULoxetine (CYMBALTA) 30 MG CPEP Take 1 Cap by mouth daily. Take along with the 60mg dose for totally of 90mg daily. Do not cut, crush or chew 90 Cap 5 08/09/2019 0 Discontinue d(Refill) Vitamin D, Ergocalciferol, 1.25 MG (89704 UT) CapsuleIndications: Vitamin D deficiency Take 1 Cap by mouth every 4 weeks. 13 Cap 0 08/24/2019 0 Discontinue d(Refill) levothyroxine (LEVOXYL) 200 MCG TabletIndications:P ostsurgical hypothyroidism TAKE ONE TABLET BY MOUTH EVERY DAY AT LEAST 30 MINUTES BEFORE BREAKFAST OR OTHER MEDS 90 Tab 4 09/02/2019 0 Discontinue d(Refill) levothyroxine (LEVOXYL) 25 MCG TabletIndications:P ostsurgical hypothyroidism TAKE ONE TABLET BY MOUTH IN THE MORNING AT LEAST 30 MINUTES PRIOR TO BREAKFAST OR OTHER MEDS 90 Tab 1 09/02/2019 0 Discontinue d(Refill) insulin aspart (INSULIN ASPART) 100 UNIT/ML injection USE IN INSULIN PUMP UP TO 200 UNITS PER DAY 30 mL 7 09/13/2019 0 Discontinue d(Refill) DULoxetine (CYMBALTA) 60 MG CPEPIndications:Fib romyalgia,Moderate episode of recurrent major depressive disorder (HCC),Primary osteoarthritis of both knees Take 1 Cap by mouth daily. Along with 30 mg capsule to total 90 mg daily. 90 Cap 4 10/11/2019 0 Discontinue d(Refill) gabapentin (NEURONTIN) 300 MG CapsuleIndications: Type 2 diabetes mellitus with hemoglobin A1c goal of 7.0%-8.0% (FORMERLY [facility]) Take 1 Cap by mouth 3 times a day. 270 Cap 5 10/15/2019 0 Discontinue d(Refill) Nortriptyline HCl (PAMELOR) 50 MG CapsuleIndications: Fibromyalgia Take 1 Cap by mouth at bedtime. 90 Cap 2 10/25/2019 0 Discontinue d(Refill) colchicine 0.6 MG TabletIndications:L eukocytoclastic vasculitis (FORM[facility]) Take 1/2 tab daily 45 Tab 0 10/29/2019 0 Discontinue d(Refill) Dulaglutide (TRULICITY) 1.5 MG/0.5ML SOPNIndications:DM type 2 nursing care encounter (FORM[facility]),Uncontrolled type 2 diabetes mellitus with stage 3 chronic kidney disease, with long-term current use of insulin ([facility]) Inject 1.5 mg under the skin once a week. 5 Pre-filled Pen Syringe Dosing Unit 5 11/07/2019 0 Discontinue d(Refill) ACCU-CHEK SOFTCLIX LANCETS MISC Test blood sugar three or four times daily as directed 400 Box Dosing Unit 4 12/13/2019 0 Discontinue d(Refill) Hospital, Clinic, or Other Facility Administered Medication Ordered Dose Route Frequency Start Date End Date Status levalbuterol (XOPENEX) inhalation solution 0.63 mgIndications:Wheezing 0.63 mg NEBULIZER Q4H PRN 09/12/2019 Ac tive documented as of this encounter (statuses as of 12/18/2019) Active Problems Problem Noted Date Primary osteoarthritis [...] 10/14/2014 Overview: ICD-10 update of inactive term [place] filter in place 08/19/2014 History of [...] as of this encounter (statuses as of 12/18/2019) Resolved Problems Problem Noted Date Resolved Date [...] as of this encounter (statuses as of 12/18/2019) Immunizations Name Administration Dates Next Due Pneumococcal [...] Telephone Encounter - Migue Whiteside DO - 12/18/2019 9:53 AM EDT Signed Prescriptions: Disp Refills ACCU-CHEK SOFTCLIX LANCETS MISC 400 Ea*3 Sig: Test blood sugar three or four times daily as directed Authorizing Provider: MIGUE WHITESIDE Dulaglutide (TRULICITY) 1.5 MG/0.5ML SOPN 15 mL 3 Sig: Inject 1.5 mg under the skin once a week. Authorizing Provider: MIGUE WHITESIDE colchicine 0.6 MG Tablet 45 Tab 3 Sig: Take 1/2 tab daily Authorizing Provider: MIGUE WHITESIDE Nortriptyline HCl (PAMELOR) 50 MG Capsule 90 Cap 3 Sig: Take 1 Cap by mouth at bedtime. Authorizing Provider: MIGUE WHITESIDE gabapentin (NEURONTIN) 300 MG Capsule 270 Cap3 Sig: Take 1 Cap by mouth 3 times a day. Authorizing Provider: MIGUE WHITESIDE DULoxetine (CYMBALTA) 60 MG CPEP 90 Cap 3 Sig: Take 1 Cap by mouth daily. Along with 30 mg capsule to total 90 mg daily. Authorizing Provider: MIGUE WHITESIDE insulin aspart (INSULIN ASPART) 100 UNIT/M*90 mL 3 Sig: USE IN INSULIN PUMP UP TO 200 UNITS PER DAY Authorizing Provider: MIGUE WHITESIDE levothyroxine (LEVOXYL) 200 MCG Tablet 90 Tab 3 Sig: TAKE ONE TABLET BY MOUTH EVERY DAY AT LEAST 30 MINUTES BEFORE BREAKFAST OR OTHER MEDS Authorizing Provider: MIGUE WHITESIDE levothyroxine (LEVOXYL) 25 MCG Tablet 90 Tab 3 Sig: (at least 30 min prior to breakfast or other meds) Authorizing Provider: MIGUE WHITESIDE Vitamin D, Ergocalciferol, 1.25 MG (26700 *13 Cap 3 Sig: Take 1 Cap by mouth every 4 weeks. Authorizing Provider: MIGUE WHITESIDE DULoxetine (CYMBALTA) 30 MG CPEP 90 Cap 3 Sig: Take 1 Cap by mouth daily. Take along with the 60mg dose for totally of 90mg daily. Do not cut, crush or chew Authorizing Provider: MIGUE WHITESIDE spironolactone (ALDACTONE) 25 MG Tablet 90 Tab 3 Sig: Take 1 Tab by mouth daily. Authorizing Provider: MIGUE WHITESIDE Magnesium Oxide 400 (241.3 mg) Table t 90 Tab 3 Sig: Take 400 mg by mouth daily. Authorizing Provider: MIGUE WHITESIDE furosemide (LASIX) 40 MG Tablet 90 Tab 3 Sig: Take 1 Tab by mouth daily. Authorizing Provider: MIGUE WHITESIDE Glucose Blood (ONETOUCH ULTRA BLUE) STRP 400 St*3 Sig: Check sugars 3-4 times daily Authorizing Provider: MIGUE WHITESIDE traZODone (DESYREL) 50 MG Tablet 90 Tab 3 Sig: Take 1 Tab by mouth at bedtime. Authorizing Provider: MIGUE WHITESIDE rOPINIRole (REQUIP) 2 MG Tablet 90 Tab 3 Sig: Take 1 Tab by mouth at bedtime. Authorizing Provider: MIGUE WHITESIDE metoprolol tartrate (LOPRESSOR) 25 MG Tabl*90 Tab 3 Sig: Take 0.5 Tabs by mouth 2 times a day. Authorizing Provider: MIGUE WHITESIDE omeprazole (PRIL OSEC) 20 MG CPDR 90 Cap 3 Sig: Take 1 Cap by mouth daily. Authorizing Provider: MIGUE WHITESIDE * Telephone Encounter - Sadie Coleman LPN - 12/18/2019 8:19 AM EDT New [facility] mail order. Please sign. documented in this encounter Plan of Treatment Upcoming Encounters Date Type Specialty Care Team Description 12/19/2019 Telemedicine Nephrology Gia White MD [address] [place], [place] [id number] 12/24/2019 Home Visit Family Medicine Mira Duong, [facility] [employer] [address] [place] [address] [phone] 01/02/2020 Office Visit Pharmacy [facility] [place] [address] [facility] [place] [address] 02/04/2020 Office Visit Dermatology Apple Kaminski MD [address] [place] [address] [phone] 02/07/2020 Office Visit Orthopedics Zack Teague DO [address] [place] [address] [phone] 02/26/2020 Office Visit Cardiology Rey Woodall MD [address] [facility] [place] [address] [phone] 05/08/2020 Office Visit Family Medicine Migue Whiteside DO [address] [place] [address] [phone] 07/11/2020 Imaging Radiology 11/27/2020 Office Visit Pulmonary Celsa Tafoya CRNP [address] [place] [address] [phone] Health Maintenance Due Date Last Done Comments Zoster Vaccines (3 of 3) 01/02/2020 11/07/2019, 11/24 Yearly B-12 03/14/2020 03/14/2019, 05/16/2018 DIABETES-EYE EXAM 04/05/2020 04/05/2019, (Done elsewhere), 12/18/2009, Additional history exists DIABETES-HGBA1C EVERY 6 MONTHS 05/07/2020 11/07/2019, 08/09/2019, 03/14/2019, Additional history exists CKD GFR USE SMARTSET 86304 06/06/202012/04, 11/30/2019, 11/07/2019, Additional history exists BREAST CANCER SCREENING DISCUSSION YEARLY AGES 40-75 07/10/2020 07/10/2019, 06/23/2018, 05/09/2015, Additional history exists CKD PHOS USE SMARTSET 74382 11/07/202010/27, 12/29/2017, 08/26/2009, Additional history exists DIABETES-FOOT EXAM 11/07/2020 11/07/2019, 0 01/01/2019, 12/29/2017, Additional history exists CKD HGB USE SMARTSET 58853 11/29/202011/29, 09/10/2019, 07/20/2019, Additional history exists DIABETES-URINE MICROALBUMIN EVERY 12 MONTHS 11/29/2020 11/30/2019, 05/24/2019, 02/26/2019, Additional history exists PAP SMEAR-EVERY 3 YRS,AGES [...] with long-term current use of insulin (HCC) 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 Fibromyalgia Mylagia and myositis, unspecified Type 2 diabetes mellitus with hemoglobin A1c goal of 7.0%-8.0% (HCC) Moderate episode of recurrent major depressive disorder (HCC) Primary osteoarthritis of both knees Primary localized osteoarthrosis, lower leg POSTSURGICAL HYPOTHYROID Postsurgical hypothyroidism Vitamin D deficiency Unspecified vitamin D deficiency Chronic diastolic congestive heart failure (HCC) Chronic diastolic heart failure Restless legs syndrome Restless legs syndrome (RLS) HTN, goal below 130/80 Unspecified essential hypertension Acute diastolic congestive heart failure (HCC) Acute diastolic heart failure Body mass index (BMI) of 50.0 to 59.9 in adult (HCC) Hypoxemia ELISSA (obstructive sleep apnea) Obstructive sleep apnea (adult) (pediatric) HTN, goal below 140/80 Unspecified essential hypertension documented in this encounter Advance Directives Documents on File Type Date Recorded Patient Sourcing Manager Expl 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
--- OUTSIDE RECORDS SUMMARY | 2023-06-01 05:30 | External Medical Summary | Summary of Care ---
Author Name Unknown Organization [place] [address] Care Team Providers Care Right Of Way Worker Name Role Phone Kevin Whiteside DO Primary Care Provider Reason for Visit * Reason Comments Health Maintenance Encounter Details Date Type Department Care Team Description 12/18/2019 Telephone Family Practice [facility] [address] [place] [address] Kevin Whiteside DO [address] [place] [address] [phone] Health Maintenance Allergies Active Allergy Reactions Severity Noted Date Comments Pollen 05/18/2019 Heparin 09/04/2009 Heparin Induced Thrombocytopenia Empagliflozin Other (Please comment) Medium 05/17/2018 3 yeast infections in 6 weeks after starting Morphine And Related 09/16/1997 Hallucinations Tetanus Toxoid Other (Please comment) 06/15/2011 Passed out documented as of this encounter (statuses as of 12/18/2019) Medications Medication Sig Dispensed Refills Start Date End Date Status PRILOSEC 20 MG PO CPDR one tablet daily 0 Active docusate sodium (STOOL SOFTENER) 100 MG [...] 3 08/30/2018 Active Blood Glucose Monitoring Suppl (Radiology PartnersTOUCH ULTRA 2) w/Device KIT Use to test BG values 1 Kit 0 01/26/2019 Active metoprolol tartrate (LOPRESSOR) 25 MG TabletIndications:HT N, goal below 130/80,Acute diastolic congestive heart failure (HCC),Body mass index (BMI) of 50.0 to 59.9 in adult (HCC),Hypoxemia,ELISSA (obstructive sleep apnea),HTN, goal below 140/80 Take 0.5 Tabs by mouth 2 times a day. 90 Tab 3 02/13/2019 Active clobetasol propionate (TEMOVATE) 0.05 % ointmentIndications: Irritant contact dermatitis, unspecified trigger Apply topically to affected area 2 times a day. To affected area for up to two weeks. 60 g 1 02/13/2019 Active Insulin Pen Needle (BD PEN NEEDLE SHORT U/F) 31G X 8 MM Use 5 times daily with insulin 200 Box Dosing Unit 11 02/26/2019 Active rOPINIRole (REQUIP) 2 MG TabletIndications:Re stless legs syndrome Take 1 Tab by mouth at bedtime. 90 Tab 3 03/07/2019 Active traZODone (DESYREL) 50 MG Tablet Take 1 Tab by mouth at bedtime. 30 Tab 5 04/04/2019 Active Glucose Blood (ONETOUCH ULTRA BLUE) STRP Check sugars 3-4 times daily 400 Strip 2 04/21/2019 Active furosemide (LASIX) 40 MG TabletIndications:Ch ronic diastolic congestive heart failure (HCC) Take 40 mg by mouth daily. 180 Tab 3 05/15/2019 Active Magnesium Oxide 400 (241.3 mg) Tablet Take 400 mg by mouth daily. 90 Tab 3 06/20/2019 Active spironolactone (ALDACTONE) 25 MG Tablet Take 1 Tab by mouth daily. 90 Tab 3 07/10/2019 Active DULoxetine (CYMBALTA) 30 MG CPEP Take 1 Cap by mouth daily. Take along with the 60mg dose for totally of 90mg daily. Do not cut, crush or chew 90 Cap 5 08/09/2019 Active Vitamin D, Ergocalciferol, 1.25 MG (19043 UT) CapsuleIndications:V itamin D deficiency Take 1 Cap by mouth every 4 weeks. 13 Cap 0 08/24/2019 Active levothyroxine (LEVOXYL) 200 MCG TabletIndications:Po stsurgical hypothyroidism TAKE ONE TABLET BY MOUTH EVERY DAY AT LEAST 30 MINUTES BEFORE BREAKFAST OR OTHER MEDS 90 Tab 4 09/02/2019 Active levothyroxine (LEVOXYL) 25 MCG TabletIndications:Po stsurgical hypothyroidism TAKE ONE TABLET BY MOUTH IN THE MORNING AT LEAST 30 MINUTES PRIOR TO BREAKFAST OR OTHER MEDS 90 Tab 1 09/02/2019 Active insulin aspart (INSULIN ASPART) 100 UNIT/ML injection USE IN INSULIN PUMP UP TO 200 UNITS PER DAY 30 mL 7 09/13/2019 Active DULoxetine (CYMBALTA) 60 MG CPEPIndications:Fibr omyalgia,Moderate episode of recurrent major depressive disorder (HCC),Primary osteoarthritis of both knees Take 1 Cap by mouth daily. Along with 30 mg capsule to total 90 mg daily. 90 Cap 4 10/11/2019 Active gabapentin (NEURONTIN) 300 MG CapsuleIndications:T ype 2 diabetes mellitus with hemoglobin A1c goal of 7.0%-8.0% (FORMERLY [facility]) Take 1 Cap by mouth 3 times a day. 270 Cap 5 10/15/2019 Active Nortriptyline HCl (PAMELOR) 50 MG CapsuleIndications:F ibromyalgia Take 1 Cap by mouth at bedtime. 90 Cap 2 10/25/2019 Active colchicine 0.6 MG TabletIndications:Le ukocytoclastic vasculitis ([facility]) Take 1/2 tab daily 45 Tab 0 10/29/2019 Active Dulaglutide (TRULICITY) 1.5 MG/0.5ML SOPNIndications:DM type 2 nursing care encounter ([facility]),Uncontrolled type 2 diabetes mellitus with stage 3 chronic kidney disease, with long-term current use of insulin ([facility]) Inject 1.5 mg under the skin once a week. 5 Pre-filled Pen Syringe Dosing Unit 5 11/07/2019 Active insulin aspart (NOVOLOG) 100 UNIT/ML SOPN Inject 25 Units under the skin three times a day with meals. 5 Pre-filled Pen Syringe Dosing Unit 1 11/15/2019 Active clonazePAM (KLONOPIN) 0.5 MG TabletIndications:An xiety [...] directed 400 Box Dosing Unit 4 12/13/2019 Active Hospital, Clinic, or Other Facility Administered [...] Encounter - Sadie Coleman LPN - 12/18/2019 8:17 AM EDT Patient contacted for Care Gaps Comprehensive Care Outreach. Last Office Visit: 12/10/2019 Next Office Visit: 05/08/2020 Scheduled Provider(s): Kevin Whiteside DO Health Maintenance Topic Date Due Zoster Vaccines (3 of 3) 01/02/2020 Yearly B-12 03/14/2020 DIABETES-EYE EXAM 04/05/2020 DIABETES-HGBA1C EVERY 6 MONTHS 05/07/2020 CKD GFR USE SMARTSET 01526 06/06/2020 BREAST CANCER SCREENING DISCUSSION YEARLY AGES 40-75 07/10/2020 Outreach action taken: b12 added to already ordered labs mammo ordered and scheduled Mail order - agreeable, sent to pcp Contacted: Spoke with patient - documented in this encounter Plan of Treatment Upcoming Encounters Date Type Specialty Care Team Description 12/19/2019 Telemedicine Nephrology Gia White MD [address] [place], [place] [id number] 12/24/2019 Home Visit Family Medicine Mira Duong, [facility] [employer] [address] [place], [place] [id number] 01/02/2020 [facility] [place] [address] [facility] [address] 02/04/2020 Office Visit Dermatology Apple Kaminski MD [address] [place] [address] [phone] 02/07/2020 Office Visit [facility]oped[facility] [address] [phone] 02/26/2020 Office Visit Cardiology Rey Woodall MD [address] [place] [address] [phone] 05/08/2020 Office Visit Family Medicine Kevin Whiteside DO [address] [place] [address] [phone] 07/11/2020 Imaging Radiology 11/27/2020 Office Visit Pulmonary Celsa Tafoya CRNP [address] [place] [address] [phone] Scheduled Orders Name Type Priority Associated Diagnoses Orde r Schedule MAMMOGRAM SCREENING BILATERAL Medical Imaging Routine Encounter for screening mammogram for malignant neoplasm of breast Expected: 12/18/2019, Expires: 12/17/2020 VITAMIN B12 Lab Routine [place] agent drug therapy Expected: 12/18/2019, Expires: 12/17/2020 Health Maintenance Due Date Last Done Comments Zoster Vaccines (3 of 3) 01/02/2020 11/07/2019, 11/24 Yearly B-12 03/14/2020 03/14/2019, 05/16/2018 DIABETES-EYE EXAM 04/05/2020 04/05/2019, (Done elsewhere), 12/18/2009, Additional history exists DIABETES-HGBA1C EVERY 6 MONTHS 05/07/2020 11/07/2019, 08/09/2019, 03/14/2019, Additional history exists CKD GFR USE SMARTSET 17525 06/06/202012/04, 11/30/2019, 11/07/2019, Additional history exists BREAST CANCER SCREENING DISCUSSION YEARLY AGES 40-75 07/10/2020 07/10/2019, 06/23/2018, 05/09/2015, Additional history exists CKD PHOS USE SMARTSET 26331 11/07/202010/27, 12/29/2017, 08/26/2009, Additional history exists DIABETES-FOOT EXAM 11/07/2020 11/07/2019, 0 01/01/2019, 12/29/2017, Additional history exists CKD HGB USE SMARTSET 87349 11/29/202011/29, 09/10/2019, 07/20/2019, Additional history exists DIABETES-URINE [...] this encounter Visit Diagnoses Diagnosis Encounter for screening mammogram for malignant neoplasm of breast- Primary Other screening mammogram On long-term drug therapy documented in this encounter Advance Directives Documents on File Type Date Recorded Patient Chair Caner Expl 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
--- OUTSIDE RECORDS SUMMARY | 2023-06-01 05:30 | External Medical Summary | Summary of Care ---
Author Name Unknown Organization [place] [address] Care Team Providers Care Molded Goods Controls Operator Name Role Phone Carey Whitesidelidia Ocampomelinda Primary Care Provider Reason for Visit * Reason Comments Test Results Encounter Details Date Type Department Care Team Description 12/25/2019 Telephone Nephrology 2nd Floor, [place] [address] [facility] [place] [address] Gia White MD 21 [facility] [address] Test Results Allergies Active Allergy Reactions Severity Noted Date Comments Pollen 05/18/2019 Heparin 09/04/2009 Heparin Induced Thrombocytopenia Empagliflozin Other (Please comment) Medium 05/17/2018 3 yeast infections in 6 weeks after starting Morphine And Related 09/16/1997 Hallucinations Tetanus Toxoid Other (Please comment) 06/15/2011 Passed out documented as of this encounter (statuses as of 12/27/2019) Medications Medication Sig Dispensed Refills Start Date [...] 3-4 times a day. 400 Strip 3 12/05/201 8 Active Blood Glucose Monitoring Suppl (ONETOUCH ULTRA [...] Pen Syringe Dosing Unit 1 0 Active clonazePAM (KLONOPIN) 0.5 MG TabletIndications:A nxiety state TAKE ONE TABLET BY MOUTH TWICE DAILY 60 Tab 0 0 Active oxygen GASIndications:ELISSA (obstructive sleep apnea) 2 LPM bled through CPAP 11 cwp during all periods of sleep and 2 LPM via NC with exertion. 0 0 Active traMADol (ULTRAM) 50 MG TabletIndications:C hronic pain syndrome Take 1 Tab by mouth every 8 hours as needed for Pain, Severe. 90 Tab 0 0 Active ACCU-CHEK SOFTCLIX LANCETS MISC Test blood sugar three or four times daily as directed 400 Each 3 0 Active Dulaglutide (TRULICITY) 1.5 MG/0.5ML SOPNIndications:DM type 2 nursing care encounter ([facility]),Uncontrolled type 2 diabetes mellitus with stage 3 chronic kidney disease, with long-term current use of insulin ([facility]) Inject 1.5 mg under the skin once a week. 15 mL 3 0 Active colchicine 0.6 MG TabletIndications:L eukocytoclastic vasculitis ([facility]) Take 1/2 tab [...] other meds) 90 Tab 3 0 Active Vitamin D, Ergocalciferol, 1.25 MG (05705 UT) CapsuleIndications: Vitamin D deficiency Take 1 Cap by mouth every 4 weeks. 13 Cap 3 0 Active DULoxetine (CYMBALTA) 30 MG CPEP Take 1 Cap by mouth daily. Take along with the 60mg dose for totally of 90mg daily. Do not cut, crush or chew 90 Cap 0 Active Magnesium Oxide 400 (241.3 mg) Tablet Take 400 mg by mouth daily. 90 Tab 3 0 Active furosemide (LASIX) 40 MG TabletIndications:C hronic diastolic congestive heart failure (HCC) Take 1 Tab by mouth daily. 90 Tab 3 0 Active Glucose Blood (EnsaTOUCH ULTRA BLUE) STRP Check sugars 3-4 times [...] mouth daily. 90 Cap 3 0 Active spironolactone (ALDACTONE) 25 MG Tablet Take 0.5 Tabs by mouth daily. 90 Tab 3 0 Active spironolactone (ALDACTONE) 25 MG Tablet Take 1 Tab by mouth daily. 90 Tab 3 0 12/25/19 20 Discontinued Hospital, Clinic, or Other Facility Administered Medication Ordered Dose Route Frequency Start Date End Date Status levalbuterol (XOPENEX) inhalation solution 0.63 mgIndications:Wheezing 0.63 mg NEBULIZER Q4H PRN 09/12/2019 Ac tive documented as of this encounter (statuses as of 12/27/2019) Active Problems Problem Noted Date Primary osteoarthritis [...] 10/14/2014 Overview: ICD-10 update of inactive term [place] filter in place 08/19/2014 History of pulmonary [...] as of this encounter (statuses as of 12/27/2019) Resolved Problems Problem Noted Date Resolved Date [...] as of this encounter (statuses as of 12/27/2019) Immunizations Name Administration Dates Next Due Pneumococcal [...] Telephone Encounter - Teri Cullen RN - 12/25/2019 11:49 AM EDT Spoke to pt. She will make the changes. She had a uti and had been on abx. She is going to give another sample for a culture in case it didn't clear. Will avoid high potassium foods, decrease aldactone and get repeat labs. * Telephone Encounter - Teri Cullen RN - 12/25/2019 11:45 AM EDT ----- Message from Gia White MD sent at 12/25/2019 11:13 AM EDT ----- Renal function is slightly better than 2 weeks ago. Urinalysis might suggest infection. If patient is having dysuria, she should give another sample for urine culture. Potassium is borderline high. Please avoid high potassium foods. Reduce Aldactone to 12.5mg daily. Repeat BMP in 2 weeks. Gia White MD documented in this encounter Plan of Treatment Upcoming Encounters Date Type Specialty Care Team Description 01/11/2020 [facility] [address] 02/04/2020 Office Visit Dermatology Apple Kaminski MD 200 [place] [address] [phone] 02/07/2020 Office Visit Orthopedics Zack Teague DO 132 [facility] [place] [address] [phone] 02/26/2020 Office Visit Cardiology Rey Woodall MD [address] [place] [address] [phone] 03/05/2020 Office Visit Pharmacy [facility] [place] [address] [place] [address] 05/08/2020 Office Visit Family Medicine Kevin Whiteside DO [address] [place] [address] [phone] 07/11/2020 Imaging Radiology 11/27/2020 Office Visit Pulmonary Celsa Tafoya CRNP [address] [place] [address] [phone] Scheduled Orders Name Type Priority Associated Diagnoses Orde r Schedule BASIC METAB PANEL, BMP Lab Routine Kidney disease, chronic, stage III (GFR 30-59 ml/min) (HCC) Expected: 01/08/2020, Expires: 02/24/2020 CULTURE QUANT URINE Lab Routine Dysuria Expected: 12/25/2019 (Approximate), Expires: 01/23/2021 Health Maintenance Due Date Last Done Comments Zoster Vaccines (3 of 3) 01/02/2020 11/07/2019, 11/24 Yearly B-12 03/14/2020 03/14/2019, 05/16/2018 DIABETES-EYE EXAM 04/05/2020 04/05/2019, (Done elsewhere), 12/18/2009, Additional history exists DIABETES-HGBA1C EVERY 6 MONTHS 05/07/2020 11/07/2019, 08/09/2019, 03/14/2019, Additional history exists CKD GFR USE SMARTSET 35473 06/25/202012/23, 12/05/2019, 11/30/2019, Additional history exists BREAST CANCER SCREENING DISCUSSION YEARLY AGES 40-75 07/10/2020 07/10/2019, 06/23/2018, 05/09/2015, Additional history exists DIABETES-FOOT EXAM 11/07/2020 11/07/2019, 0 01/01/2019, 12/29/2017, Additional history exists CKD HGB USE SMARTSET 68264 11/29/202011/29, 09/10/2019, 07/20/2019, Additional history exists CKD PHOS USE SMARTSET 16944 12/23/2020/, 11/07/2019, 12/29/2017, Additional history exists DIABETES-URINE [...] as of this encounter Visit Diagnoses Diagnosis Dysuria- Primary Kidney disease, chronic, stage III (GFR 30-59 ml/min) (HCC) Chronic kidney disease, Stage III (moderate) documented in this encounter Advance Directives Documents on File Type Date Recorded Patient Chief Fundraising Officer Expl 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
--- OUTSIDE RECORDS SUMMARY | 2023-06-01 05:30 | External Medical Summary | Summary of Care ---
Author Name Unknown Organization [place] [address] Care Team Providers Care Cost Recovery Technician Name Role Phone Kevin Whiteside DO Primary Care Provider Reason for Visit * Reason Comments Other Care Gaps Outreach Encounter Details Date Type Department Care Team Description 01/03/2020 Telephone Family Practice [facility] [address] [facility] [place] [address] Kevin Whiteside DO [address] [facility] [place] [address] [phone] Other (Care Gaps Outreach) Allergies Active Allergy Reactions Severity Noted Date Comments Pollen 05/18/2019 Heparin 09/04/2009 Heparin Induced Thrombocytopenia Empagliflozin Other (Please comment) Medium 05/17/2018 3 yeast infections in 6 weeks after starting Morphine And Related 09/16/1997 Hallucinations Tetanus Toxoid Other (Please comment) 06/15/2011 Passed out documented as of this encounter (statuses as of 01/03/2020) Medications Medication Sig Dispensed Refills Start Date [...] colchicine 0.6 MG TabletIndications:Le ukocytoclastic vasculitis ([facility]) Take 1/2 tab daily [...] 12/18/2019 Active Vitamin D, Ergocalciferol, 1.25 MG (69384 UT) CapsuleIndications:V itamin D deficiency Take 1 [...] TWICE DAILY 60 Tab 0 01/01/2020 Active Hospital, Clinic, or Other Facility Administered Medication Ordered Dose Route Frequency Start Date End Date Status levalbuterol (XOPENEX) inhalation solution 0.63 mgIndications:Wheezing 0.63 mg NEBULIZER Q4H PRN 09/12/2019 Ac tive documented as of this encounter (statuses as of 01/03/2020) Active Problems Problem Noted Date Primary osteoarthritis [...] as of this encounter (statuses as of 01/03/2020) Resolved Problems Problem Noted Date Resolved Date [...] as of this encounter (statuses as of 01/03/2020) Immunizations Name Administration Dates Next Due Pneumococcal [...] Telephone Encounter - Sadie Coleman LPN - 01/03/2020 9:17 AM EDT Considerate Care Outreach for Chronic Disease Documentation Outreach not indicated - case managed and [facility]. documented in this encounter Plan of Treatment Upcoming Encounters Date Type Specialty Care Team Description 01/11/2020 Telemedicine Nephrology Gia White MD 21 [facility] [place] [id number] 02/04/2020 Office Visit Dermatology Apple Kaminski MD [address] [place] [address] [phone] 02/07/2020 Office Visit Orthopedics Zack Teague DO [address] [place] [address] [phone] 02/26/2020 Office Visit Cardiology Rey Woodall MD [address] [place] [address] [phone] 03/05/2020 Office Visit Pharmacy [facility] [place] [address] [place] [address] 05/08/2020 Office Visit Family Medicine Kevin Whiteside DO [address] [place] [address] [phone] 07/11/2020 Imaging Radiology 11/27/2020 Office Visit Pulmonary Celsa Tafoya CRNP [address] [place] [address] [phone] Health Maintenance Due Date Last Done Comments Zoster Vaccines (3 of 3) 01/02/2020 11/07/2019, 11/24 Yearly B-12 03/14/2020 03/14/2019, 05/16/2018 DIABETES-EYE EXAM 04/05/2020 04/05/2019, (Done elsewhere), 12/18/2009, Additional history exists DIABETES-HGBA1C EVERY 6 MONTHS 05/07/2020 11/07/2019, 08/09/2019, 03/14/2019, Additional history exists CKD GFR USE SMARTSET 56586 06/25/202012/23, 12/05/2019, 11/30/2019, Additional history exists BREAST CANCER SCREENING DISCUSSION YEARLY AGES 40-75 07/10/2020 07/10/2019, 06/23/2018, 05/09/2015, Additional history exists DIABETES-FOOT EXAM 11/07/2020 11/07/2019, 0 01/01/2019, 12/29/2017, Additional history exists CKD HGB USE SMARTSET 58427 11/29/202011/29, 09/10/2019, 07/20/2019, Additional history exists CKD PHOS USE SMARTSET 50230 12/23/2020 03/, 11/07/2019, 12/29/2017, Additional history exists [...] Documents on File Type Date Recorded Patient Nut And Bolt Assembler Expl 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
--- OUTSIDE RECORDS SUMMARY | 2023-06-01 05:30 | External Medical Summary | Summary of Care ---
Author Name Unknown Organization [place] [address] Care Team Providers Care Web Design Specialist Name Role Phone Kevin Whiteside DO Primary Care Provider Reason for Visit * Reason Comments Chronic Kidney Disease (CKD) * Evaluate & Treat - Unlimited Visits (Within 3 days (urgent)) Status Reason Specialty Diagnoses / Procedures Referred By Contact Referred To Contact Authorized Specialty Services Required Nephrology Diagnoses Chronic kidney disease, unspecified CKD stage Angi Barr PA-C [address] [place] [address] Encounter Details Date Type Department Care Team Description 12/19/2019 Telemedicine Nephrology, [address] [address] Gia White MD [address] [place], [place] [id number] Uncontrolled type 2 diabetes mellitus with stage 3 chronic kidney disease, with long-term current use of insulin ([facility])* Allergies Active Allergy Reactions Severity Noted Date Comments Pollen 05/18/2019 Heparin 09/04/2009 Heparin Induced Thrombocytopenia Empagliflozin Other (Please comment) Medium 05/17/2018 3 yeast infections in 6 weeks after starting Morphine And Related 09/16/1997 Hallucinations Tetanus Toxoid Other (Please comment) 06/15/2011 Passed out documented as of this encounter (statuses as of 12/19/2019) Medications Medication Sig Dispensed Refills Start Date [...] current use of insulin ([facility]) Inject 1.5 mg under the skin once a week. 15 mL 3 12/18/2019 Active colchicine 0.6 MG TabletIndications:Le ukocytoclastic vasculitis (HCC) Take 1/2 tab daily 45 Tab 12/18/2019 Active Nortriptyline HCl (PAMELOR) 50 MG CapsuleIndications:F ibromyalgia Take 1 Cap by mouth at bedtime. 90 Cap 12/18/2019 Active gabapentin (NEURONTIN) 300 MG CapsuleIndications:T ype 2 diabetes mellitus with hemoglobin A1c goal of 7.0%-8.0% (HCC) Take 1 Cap by mouth 3 times a day. 270 Cap 12/18/2019 Active DULoxetine (CYMBALTA) 60 MG CPEPIndications:Fibr [...] 12/18/2019 Active Vitamin D, Ergocalciferol, 1.25 MG (12059 UT) CapsuleIndications:V itamin D deficiency Take 1 [...] by mouth daily. 90 Tab 12/18/2019 Active Magnesium Oxide 400 (241.3 mg) Tablet Take 400 mg by mouth daily. 90 Tab 12/18/2019 Active furosemide (LASIX) 40 MG TabletIndications:Ch ronic diastolic congestive heart failure (HCC) Take 1 Tab by mouth daily. 90 Tab 3 12/18/2019 Active Glucose Blood (Siving [place] ULTRA BLUE) STRP Check sugars 3-4 times [...] mouth daily. 90 Cap 3 12/18/2019 Active Hospital, Clinic, or Other Facility Administered Medication Ordered Dose Route Frequency Start Date End Date Status levalbuterol (XOPENEX) inhalation solution 0.63 mgIndications:Wheezing 0.63 mg NEBULIZER Q4H PRN 09/12/2019 Ac tive documented as of this encounter (statuses as of 12/19/2019) Active Problems Problem Noted Date Primary osteoarthritis [...] as of this encounter (statuses as of 12/19/2019) Resolved Problems Problem Noted Date Resolved Date [...] as of this encounter (statuses as of 12/19/2019) Immunizations Name Administration Dates Next Due Pneumococcal [...] Travel End documented as of this encounter Progress Notes * Gia White MD - 12/19/2019 1:40 PM EDT After connecting to the patient via telephone, the patient was identified by name and date of . Patient was then informed that this was a telephone call only visit. The patient agreed to participate. Cr worse at 2.6 recently. She is completing keflex for UTI. No leg swelling or SOB. BP controlled. This is an established patient evaluated in my specialty within the past three years yes Visit Disposition: follow up in 3 weeks Total call duration was 5-10 minutes. * Teri Cullen, LEXI - 12/19/2019 1:40 PM EDT Spoke to pt. Identified pt by name and . Pt finishing Keflex today for a UTI. documented in this encounter Plan of Treatment Upcoming Encounters Date Type Specialty Care Team Description 12/24/2019 Home Visit Family Medicine Mira Duong, Community Health Talent Manager [address] [place], [place] [id number] 01/02/2020 Office Visit Pharmacy [facility] [address] [place] [address] 02/04/2020 Office Visit Dermatology Apple Kaminski MD [address] [place] [address] [phone] 02/07/2020 Office Visit Orthopedics Zack Teague, DO [address] [place] [address] [phone] 02/26/2020 Office Visit Cardiology Rey Woodall MD [address] [place] [address] [phone] 05/08/2020 Office Visit Family Medicine Kevin Whiteside, [address] [place] [address] [phone] 07/11/2020 Imaging Radiology 11/27/2020 Office Visit Pulmonary Celsa Tafoya CRNP [address] [place] [address] [phone] Scheduled Orders Name Type Priority Associated Diagnoses Orde r Schedule ANCA BATTERY Lab Routine Uncontrolled type 2 diabetes mellitus with stage 3 chronic kidney disease, with long-term current use of insulin (HCC) Expected: 12/19/2019 (Approximate), Expires: 02/18/2020 PROT/CREAT UR RATIO Lab Routine Uncontrolled type 2 diabetes mellitus with stage 3 chronic kidney disease, with long-term current use of insulin (HCC) Expected: 12/19/2019 (Approximate), Expires: 02/18/2020 URINE W/ MICROSCOPIC Lab Routine Uncontrolled type 2 diabetes mellitus with stage 3 chronic kidney disease, with long-term current use of insulin (HCC) Expected: 12/19/2019 (Approximate), Expires: 02/18/2020 RENAL FUNCTION PANEL Lab Routine Uncontrolled type 2 diabetes mellitus with stage 3 chronic kidney disease, with long-term current use of insulin (HCC) Expected: 12/19/2019 (Approximate), Expires: 02/18/2020 COMPLEMENT C3 Lab Routine Uncontrolled type 2 diabetes mellitus with stage 3 chronic kidney disease, with long-term current use of insulin (HCC) Expected: 12/19/2019 (Approximate), Expires: 02/18/2020 COMPLEMENT C4 Lab Routine Uncontrolled type 2 diabetes mellitus with stage 3 chronic kidney disease, with long-term current use of insulin (HCC) Expected: 12/19/2019 (Approximate), Expires: 02/18/2020 Health Maintenance Due Date Last Done Comments Zoster Vaccines (3 of 3) 01/02/2020 11/07/2019, 11/24 Yearly B-12 03/14/2020 03/14/2019, 05/16/2018 DIABETES-EYE EXAM 04/05/2020 04/05/2019, (Done elsewhere), 12/18/2009, Additional history exists DIABETES-HGBA1C EVERY 6 MONTHS 05/07/2020 11/07/2019, 08/09/2019, 03/14/2019, Additional history exists CKD GFR USE SMARTSET 06300 06/06/202012/04, 11/30/2019, 11/07/2019, Additional history exists BREAST CANCER SCREENING DISCUSSION YEARLY AGES 40-75 07/10/2020 07/10/2019, 06/23/2018, 05/09/2015, Additional history exists CKD PHOS USE SMARTSET 87970 11/07/202010/27, 12/29/2017, 08/26/2009, Additional history exists DIABETES-FOOT EXAM 11/07/2020 11/07/2019, 0 01/01/2019, 12/29/2017, Additional history exists CKD HGB USE SMARTSET 27406 11/29/202011/29, 09/10/2019, 07/20/2019, Additional history exists DIABETES-URINE [...] on File Type Date Recorded Patient Character Impersonator Expl 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
--- OUTSIDE RECORDS SUMMARY | 2023-06-01 05:30 | External Medical Summary | Summary of Care ---
Author Name Unknown Organization [place] [address] Care Team Providers Care Astronomy Instructor Name Role Phone Sergey Whitesideronit Ocampomelinda Primary Care Provider Encounter Details Date Type Department Care Team Description 11/27/2019 Scan Encounter Unspecified Department <No scans attached> [...] 08/09/2019 Active Vitamin D, Ergocalciferol, 1.25 MG (92907 UT) CapsuleIndications:V itamin D deficiency Take 1 [...] (HCC) Take 1/2 tab daily 45 Tab 0 [...] TWICE DAILY 60 Tab 0 11/27/2019 Active Hospital, Clinic, or Other Facility Administered [...] 10/14/2014 Overview: ICD-10 update of inactive term [place] filter in place 08/19/2014 History of [...] Travel End documented as of this encounter Plan of Treatment Upcoming Encounters Date Type Specialty Care Team Description 12/19/2019 Telemedicine Nephrology Gia White MD [address] [place] [id number] 12/24/2019 Home Visit Family Medicine Mira Duong, Community Health Motion Picture Printer [address] [facility] [place] [id number] 01/02/2020 Office Visit Pharmacy Danuta Ordaz [facility] 132 [facility] [place] [address] 02/04/2020 Office Visit Dermatology Apple Kaminski MD [address] [place] [address] [phone] 02/07/2020 Office Visit Orthopedics Zack Teague, DO [address] [place] [address] [phone] 02/26/2020 Office Visit Cardiology Rey Woodall MD [address] [place] [address] 05/08/2020 Office Visit Family Medicine Kevin Whiteside, DO [address] [place] [address] 07/11/2020 [...] Additional history exists CKD GFR USE SMARTSET 14837 06/06/202012/04, 11/30/2019, 11/07/2019, Additional history exists BREAST CANCER SCREENING DISCUSSION YEARLY AGES 40-75 07/10/2020 07/10/2019, 06/23/2018, 05/09/2015, Additional history exists CKD PHOS USE SMARTSET 68002 11/07/202010/27, 12/29/2017, 08/26/2009, Additional history exists DIABETES-FOOT EXAM 11/07/2020 11/07/2019, 0 01/01/2019, 12/29/2017, Additional history exists CKD HGB USE SMARTSET 81079 11/29/202011/29, 09/10/2019, 07/20/2019, Additional history exists DIABETES-URINE [...] Documents on File Type Date Recorded Patient Tow Motor Driver Expl 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
--- OUTSIDE RECORDS SUMMARY | 2023-06-01 05:30 | External Medical Summary ---
Author Name Unknown Address [facility] [place] [id number] Phone Organization K01:[place] [address] [address] [place] [id number] Laboratory Report Ordering Provider Test Date Status TRACY LARRY 12/24/2019 07:26:00 Final Observation Date Value Abnormality Reference (Units ) Status C4 12/24/2019 13:07 28 10-40 (mg/dL) Final Performing Location [address] [address]
--- OUTSIDE RECORDS SUMMARY | 2023-06-01 05:30 | External Medical Summary ---
Author Name Unknown Address [address] [place] [address] Phone Organization K01:[place] [address] Laboratory Report Ordering Provider Test Date Status JAKEQUETA TAISANCHEZ 12/24/2019 07:26:00 Final Observation Date Value Abnormality Reference (Units ) Status C3 SerPl-mCnc 12/24/2019 13:07 157 90-180 ( mg/dL) Final Performing Location [place] [id number]
--- OUTSIDE RECORDS SUMMARY | 2023-06-01 05:30 | External Medical Summary | Summary of Care ---
Author Name Unknown Organization [place] [address] Care Team Providers Care Sewer Name Role Phone Migue Whiteside DO Primary Care Provider Reason for Visit * Reason Comments eRx-Medication Refill Encounter Details Date Type Department Care Team Description 12/29/2019 Refill Family Practice [facility] [address] [place] [address] Migue Whiteside DO [address] [facility] [place] [address] [phone] Anxiety state Allergies Active Allergy Reactions Severity Noted Date Comments Pollen 05/18/2019 Heparin 09/04/2009 Heparin Induced Thrombocytopenia Empagliflozin Other (Please comment) Medium 05/17/2018 3 yeast infections in 6 weeks after starting Morphine And Related 09/16/1997 Hallucinations Tetanus Toxoid Other (Please comment) 06/15/2011 Passed out documented as of this encounter (statuses as of 01/01/2020) Medications Medication Sig Dispensed Refills Start Date [...] 3 8 Active Blood Glucose Monitoring Suppl (IDENT TechnologyTOUCH ULTRA 2) w/Device KIT Use to test [...] current use of insulin ([facility]) Inject 1.5 mg under the skin once a week. 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 90 Cap 3 0 Active gabapentin (NEURONTIN) 300 MG CapsuleIndications: Type 2 diabetes mellitus with hemoglobin A1c goal of 7.0%-8.0% ([facility]) Take 1 Cap by mouth 3 times [...] 0 Active Vitamin D, Ergocalciferol, 1.25 MG (05549 UT) CapsuleIndications: Vitamin D deficiency Take 1 [...] by mouth daily. 90 Tab 0 Active furosemide (LASIX) 40 MG TabletIndications:C hronic diastolic congestive heart failure (HCC) Take 1 Tab by mouth daily. 90 Tab 0 Active Glucose Blood (IDENT TechnologyTOUCH ULTRA BLUE) STRP Check sugars 3-4 times [...] mouth daily. 90 Tab 3 0 Active clonazePAM (KLONOPIN) 0.5 MG TabletIndications:A nxiety state TAKE ONE TABLET BY MOUTH TWICE DAILY 60 Tab 0 0 Active clonazePAM (KLONOPIN) 0.5 MG TabletIndications:A nxiety state TAKE ONE TABLET BY MOUTH TWICE DAILY 60 Tab 0 0 12/30/19 20 Discontinued Hospital, Clinic, or Other Facility Administered Medication Ordered Dose Route Frequency Start Date End Date Status levalbuterol (XOPENEX) inhalation solution 0.63 mgIndications:Wheezing 0.63 mg NEBULIZER Q4H PRN 09/12/2019 Ac tive documented as of this encounter (statuses as of 01/01/2020) Active Problems Problem Noted Date Primary osteoarthritis [...] 10/14/2014 Overview: ICD-10 update of inactive term [place] filter in place 08/19/2014 History of pulmonary [...] as of this encounter (statuses as of 01/01/2020) Resolved Problems Problem Noted Date Resolved Date [...] as of this encounter (statuses as of 01/01/2020) Immunizations Name Administration Dates Next Due Pneumococcal [...] Telephone Encounter - Migue Whiteside DO - 01/01/2020 10:42 AM EDT Signed Prescriptions: Disp Refills clonazePAM (KLONOPIN) 0.5 MG Tablet 60 Tab 0 Sig: TAKE ONE TABLET BY MOUTH TWICE DAILY Authorizing Provider: MIGUE WHITESIDE * Telephone Encounter - Nayeli Jesus RP - 12/30/2019 11:17 AM EDT Pending Prescriptions: Disp Refills clonazePAM (KLONOPIN) 0.5 MG Tablet [Phar*60 Tab 0 Sig: TAKE ONE TABLET BY MOUTH TWICE DAILY * Telephone Encounter - Nayeli Jesus RP - 12/30/2019 11:16 AM EDT I have reviewed the patients controlled substance dispensing history in the Prescription Drug Monitoring Program in compliance with the [facility] regulations before prescribing a controlled substance. PDMP checked on 12/30/2019. Patient requesting: Clonazepam 0.5mg, filled 11/27/2019, for #60 for a 30 day supply. Other recent controlled medication fills: tramadol 50mg, filled 12/11/2019, for #90 for a 30 day supply. oxycodone 5mg, filled 11/30/2019, for #15 for a 3 day supply. Last Office Visit: 12/10/2019 Next Office Visit: 05/08/2020 Scheduled Provider(s): Migue Whiteside, Date medication is due for refill: 12/26/2019 Pharmacy: [id number] Is this request for a controlled [...] Review. Please approve if appropriate. Thank you, Nayeli Jesus, PharmD Clinical Pharmacist TelePharmacy 12/30/19 11:16 AM documented in this encounter Plan of Treatment Upcoming Encounters Date Type Specialty Care Team Description 01/11/2020 Office Visit Nephrology Gia White MD [address] [place] [address] 02/04/2020 Office Visit Dermatology Apple Kaminski MD [address] [place] [address] [phone] 02/07/2020 Office Visit Orthopedics Zack Teague DO [address] [place] [address] [phone] 02/26/2020 Office Visit Cardiology Rey Woodall MD [address] [place] [address] [phone] 03/05/2020 Office Visit Pharmacy [facility] [place] [address] [place] [address] 05/08/2020 Office Visit Family Medicine Migue Whiteside, DO [address] [place] [address] [phone] 07/11/2020 Imaging Radiology 11/27/2020 Office Visit Pulmonary Celsa Tafoya CRNP [address] [place] [address] [phone] Health Maintenance Due Date Last Done Comments Zoster Vaccines (3 of 3) 01/02/2020 11/07/2019, 11/24 Yearly B-12 03/14/2020 03/14/2019, 05/16/2018 DIABETES-EYE EXAM 04/05/2020 04/05/2019, (Done elsewhere), 12/18/2009, Additional history exists DIABETES-HGBA1C EVERY 6 MONTHS 05/07/2020 11/07/2019, 08/09/2019, 03/14/2019, Additional history exists CKD GFR USE SMARTSET 54604 06/25/202012/23, 12/05/2019, 11/30/2019, Additional history exists BREAST CANCER SCREENING DISCUSSION YEARLY AGES 40-75 07/10/2020 07/10/2019, 06/23/2018, 05/09/2015, Additional history exists DIABETES-FOOT EXAM 11/07/2020 11/07/2019, 0 01/01/2019, 12/29/2017, Additional history exists CKD HGB USE SMARTSET 75709 11/29/202011/29, 09/10/2019, 07/20/2019, Additional history exists CKD PHOS USE SMARTSET 71094 12/23/2020/, 11/07/2019, 12/29/2017, Additional history exists DIABETES-URINE [...] Documents on File Type Date Recorded Patient Naturopath Expl 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
--- OUTSIDE RECORDS SUMMARY | 2023-06-01 05:31 | External Medical Summary | Summary of Care ---
Author Name Unknown Organization [place] [address] Care Team Providers Care Water Filtration Technician Name Role Phone Kevin Whiteside DO Primary Care Provider Reason for Visit * Reason Comments Medication Pre-auth Encounter Details Date Type Department Care Team Description 10/19/2019 Telephone Family Practice [facility] [address] [place] [address] Kevin Whiteside DO [address] [facility] [place] [address] [phone] Medication Pre-auth Allergies Active Allergy Reactions Severity Noted Date Comments Pollen 05/18/2019 Heparin 09/04/2009 Heparin Induced Thrombocytopenia Empagliflozin Other (Please comment) Medium 05/17/2018 3 yeast infections in 6 weeks after starting Morphine And Related 09/16/1997 Hallucinations Tetanus Toxoid Other (Please comment) 06/15/2011 Passed out documented as of this encounter (statuses as of 12/12/2019) Medications Medication Sig Dispensed Refills Start Date [...] a day. 400 Strip 3 08/30/2018 Active ACCU-CHEK SOFTCLIX LANCETS MISC Test sugar 3-4 times a day. Ok to substitute Fastclix lancets, if needed. 400 Box Dosing Unit 3 08/30/2018 Active Blood Glucose Monitoring Suppl (Home Dialysis PlusTOUCH ULTRA 2) w/Device KIT Use to test [...] 08/09/2019 Active Vitamin D, Ergocalciferol, 1.25 MG (62806 UT) CapsuleIndications:V itamin D deficiency Take 1 [...] a day. 270 Cap 5 10/15/2019 Active Hospital, Clinic, or Other Facility Administered Medication Ordered Dose Route Frequency Start Date End Date Status levalbuterol (XOPENEX) inhalation solution 0.63 mgIndications:Wheezing 0.63 mg NEBULIZER Q4H PRN 09/12/2019 Ac tive documented as of this encounter (statuses as of 12/12/2019) Active Problems Problem Noted Date Primary osteoarthritis [...] as of this encounter (statuses as of 12/12/2019) Resolved Problems Problem Noted Date Resolved Date [...] as of this encounter (statuses as of 12/12/2019) Immunizations Name Administration Dates Next Due Pneumococcal Polysaccharide PPV23 (Pneumovax) 08/22/2009,06/15/2006 Seasonal Influenza, Quadriva lent, No Preserve, 6 Mons & Above, IM 07/23/2019,06/12/2018,07/14/2017 Seasonal Influenza, Quadriva lent, No Preserve, IM 06/24/2016,07/24/2015 Seasonal Influenza, Trivalen t, with Preserve, 3yr & Above, Split 06/13/2014,07/07/2012,06/28/2011,06/15,08/01/2009,07/04/2008,08/14/2007 ,10/19/2006,08/07/2004,09/04/2002 Varicella Zoster Vaccine (Adult) 12/11/2015 documented as of this encounter Social History Tobacco Use Types Packs/Day Years Used Date Former Smoker 1 15 Quit: 08/26 Smokeless Tobacco: Never Used Alcohol Use Drinks/Week oz/Week Comments Yes rare Sex Assigned at Date Recorded Female Job Start Date Occupation Industry Not on file Not on file Not on file Travel History Travel Start Travel End documented as of this encounter Miscellaneous Notes * Telephone Encounter - Yocasta Dsouza LPN - 10/19/2019 4:43 PM EST Prior Auth started on Cover My Meds 10/19/2019 16:43. * Telephone Encounter - eKdar Best CPhT - 10/19/2019 1:02 PM EST pharmacy calling to inform doctor that the pt's insurance will not pay for this medication without a completed prior authorization. . Please complete with the following information: Patient name: Stephanie Camp ID number: [id number] BIN number: [id number] PCN number: [id number] Group number: [id number] Subscriber name: Stephanie Camp Medication: traMADol (ULTRAM) 50 MG Tablet Reason for PA: required opoid limit has been exceeded Pharmacy: [facility] [id number] Rx plan and phone number: [facility] [phone] Formulary alternatives: n/a List of medications pt has tried and failed: n/a Thank you, Kedar Best Protective Signal Superintendent [facility] 10/19/2019, 1:03 PM documented in this encounter Plan of Treatment Upcoming Encounters Date Type Specialty Care Team Description 12/14/2019 Home Visit Family Medicine Mira Duong, [facility] Title Insurance Examiner [address] [place] [address] [phone] 12/19/2019 Office Visit Nephrology [facility] [address] [facility] [address] 01/02/2020 Office Visit Pharm[facility] [place] [address] [facility] [place] [address] 02/04/2020 Office Visit Dermatology Apple Kaminski MD [address] [place] [address] [phone] 02/07/2020 Office Visit Orthopedics Zack Teague, DO [facility] [place] [address] 02/26/2020 Office Visit Cardiology Rey Woodall MD [address] [facility] [place] [address] 05/08/2020 Office Visit Family Medicine Kevin Whiteside, [address] [facility] [place] [address] 11/27/2020 Office Visit Pulmonary Celsa Tafoya CRNP [facility] [place] [address] Health Maintenance Due Date Last Done Comments Zoster Vaccines (3 of 3) 01/02/2020 11/07/2019, 11/24 Yearly B-12 03/14/2020 03/14/2019, 05/16/2018 DIABETES-EYE EXAM 04/05/2020 04/05/2019, (Done elsewhere), 12/18/2009, Additional history exists DIABETES-HGBA1C EVERY 6 MONTHS 05/07/2020 11/07/2019, 08/09/2019, 03/14/2019, Additional history exists DIABETES-URINE MICROALBUMIN EVERY 12 MONTHS 05/24/2020 05/24/2019, 02/26/2019, 12/23/2018, Additional history exists CKD GFR USE SMARTSET 88181 06/06/202012/04, 11/07/2019, 09/10/2019, Additional history exists BREAST CANCER SCREENING DISCUSSION YEARLY AGES 40-75 07/10/2020 07/10/2019, 06/23/2018, 05/09/2015, Additional history exists CKD HGB USE SMARTSET 23522 09/10/202009/10, 07/20/2019, 02/26/2019, Additional history exists CKD PHOS USE SMARTSET 65311 11/07/202010/27, 12/29/2017, 08/26/2009, Additional history exists DIABETES-FOOT [...] Documents on File Type Date Recorded Patient Cycle Counter Expl 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
--- OUTSIDE RECORDS SUMMARY | 2023-06-01 05:31 | External Medical Summary | Summary of Care ---
Author Name Unknown Organization [facility] Address [place], [place] [address] Care Team Providers Care Pet Caregiver Name Role Phone Whiteside Kevin Ocampomelinda Primary Care Provider Reason for Visit * Reason Comments eRx-Medication Refill Encounter Details Date Type Department Care Team Description 12/10/2019 Refill [facility] [address] [employer] [facility] [place] [address] Krissy Baker DO [address] [employer] [facility] [place] [address] [phone] Chronic pain syndrome Allergies Active Allergy Reactions Severity Noted Date Comments Pollen 05/18/2019 Heparin 09/04/2009 Heparin Induced Thrombocytopenia Empagliflozin Other (Please comment) Medium 05/17/2018 3 yeast infections in 6 weeks after starting Morphine And Related 09/16/1997 Hallucinations Tetanus Toxoid Other (Please comment) 06/15/2011 Passed out documented as of this encounter (statuses as of 12/11/2019) Medications Medication Sig Dispensed Refills Start Date [...] 08/09/2019 Active Vitamin D, Ergocalciferol, 1.25 MG (25509 UT) CapsuleIndications:V itamin D deficiency Take 1 [...] OTHER MEDS 90 Tab 1 09/02/2019 Active clobetasol propionate (TEMOVATE) 0.05 % creamIndications:Vas culitis (HCC) apply to rash on the legs and arm twice daily x 1-2 weeks. 30 g 5 09/10/2019 Active insulin aspart (INSULIN ASPART) 100 UNIT/ML [...] via NC with exertion. 0 11/28/2019 Active cephalexin (KEFLEX) 250 MG CapsuleIndications:A cute cystitis without hematuria Take 1 Cap by mouth 2 times a day for 10 days. 20 Cap 0 12/06/2019 0 Active traMADol (ULTRAM) 50 MG TabletIndications:Ch ronic pain syndrome Take 1 Tab by mouth every 8 hours as needed for Pain, Severe. 90 Tab 0 12/10/2019 Active Hospital, Clinic, or Other Facility Administered Medication Ordered Dose Route Frequency Start Date End Date Status levalbuterol (XOPENEX) inhalation solution 0.63 mgIndications:Wheezing 0.63 mg NEBULIZER Q4H PRN 09/12/2019 Ac tive levalbuterol (XOPENEX) inhalation solution 1.25 mgIndications:AVENDAÑO (dyspnea on exertion),Wheezing 1.25 mg NEBULIZER Q4H PRN 09/13/2019 Active documented as of this encounter (statuses as of 12/11/2019) Active Problems Problem Noted Date Primary osteoarthritis [...] 10/14/2014 Overview: ICD-10 update of inactive term [place] filter in place 08/19/2014 History of pulmonary [...] as of this encounter (statuses as of 12/11/2019) Resolved Problems Problem Noted Date Resolved Date [...] as of this encounter (statuses as of 12/11/2019) Immunizations Name Administration Dates Next Due Pneumococcal [...] encounter Miscellaneous Notes * Telephone Encounter - Ivy Santillan RPh - 12/11/2019 1:51 PM EDT Refused Prescriptions: Disp Refills traMADol (ULTRAM) 50 MG Tablet [Pharmacy M*90 Tab 0 Sig: TAKE ONE TABLET BY MOUTH EVERY EIGHT HOURS NEEDED FOR SEVERE PAIN Refused By: IVY SANTILLAN LReason forRefusal: Duplicate Request documented in this encounter Plan of Treatment Upcoming Encounters Date Type Specialty Care Team Description 12/11/2019 Home Visit [facility] Brooke Jose RN [address] [place] [address] 12/19/2019 Office Visit Nephrology Gia White MD [address] [place] [address] 01/02/2020 Office Visit Pharmacy [facility] [place] [address] [place] [address] 02/04/2020 Office Visit Dermatology Apple Kaminski MD [address] [place] [address] [phone] 02/07/2020 Office Visit Orthopedics Zack Teague, DO [address] [place] [address] [phone] 02/26/2020 Office Visit Cardiology Rey Woodall MD [address] [place] [id number] 05/08/2020 Office Visit Family Medicine Kevin Whiteside, [address] [place] [address] [phone] 11/27/2020 Office Visit Pulmonary Celsa Tafoya CRNP [address] [place] [id number] Health Maintenance Due Date Last Done Comments Zoster Vaccines (3 of 3) 01/02/2020 11/07/2019, 11/24 Yearly B-12 03/14/2020 03/14/2019, 05/16/2018 DIABETES-EYE EXAM 04/05/2020 04/05/2019, (Done elsewhere), 12/18/2009, Additional history exists DIABETES-HGBA1C EVERY 6 MONTHS 05/07/2020 11/07/2019, 08/09/2019, 03/14/2019, Additional history exists DIABETES-URINE MICROALBUMIN EVERY 12 MONTHS 05/24/2020 05/24/2019, 02/26/2019, 12/23/2018, Additional history exists CKD GFR USE SMARTSET 45439 06/06/202012/04, 11/07/2019, 09/10/2019, Additional history exists BREAST CANCER SCREENING DISCUSSION YEARLY AGES 40-75 07/10/2020 07/10/2019, 06/23/2018, 05/09/2015, Additional history exists CKD HGB USE SMARTSET 38544 09/10/202009/10, 07/20/2019, 02/26/2019, Additional history exists CKD PHOS USE SMARTSET 90800 11/07/202010/27, 12/29/2017, 08/26/2009, Additional history exists DIABETES-FOOT [...] Documents on File Type Date Recorded Patient Stud Sheep Farmer Expl 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
--- OUTSIDE RECORDS SUMMARY | 2023-06-01 05:31 | External Medical Summary | Summary of Care ---
Author Name Unknown Organization [place] [address] Care Team Providers Care Pediatrician Name Role Phone Stevo Kevin Ocampomelinda Primary Care Provider Reason for Visit * Reason Comments [facility]: Maintenance Encounter Details Date Type Department Care Team Description 12/12/2019 Telephone [facility] [address] [place], [place] [id number] Services, Scheduling [address] [place] [address] [facility]: Maintenance Allergies Active Allergy [...] 08/09/2019 Active Vitamin D, Ergocalciferol, 1.25 MG (11799 UT) CapsuleIndications:V itamin D deficiency Take 1 [...] 0.6 MG TabletIndications:Le ukocytoclastic vasculitis ([facility]) Take 1/2 tab daily 45 Tab 0 [...] 10/14/2014 Overview: ICD-10 update of inactive term [place] filter in place 08/19/2014 History of pulmonary [...] Telephone Encounter - Rema Gutierrez OSA - 12/12/2019 8:46 AM EDT Message from Brooke Jose RN CM, to move 12/13 visit with Mira Duong CHA, to 12/23 @ 9am. [employer] and agreeable. RESCHEDULED: 12/23 w/ Mira Duong CHA documented in this encounter Plan of Treatment Upcoming Encounters Date Type Specialty Care Team Description 12/19/2019 Office Visit Nephrology Gia White MD [address] [facility] [place] [address] [phone] 12/24/2019 Home Visit Family Medicine Mira Duong, [facility] Plant Physiologist [address] [place] [address] [phone] 01/02/2020 Office Visit Pharmacy [facility] [place] [address] [place] [address] 02/04/2020 Office Visit Dermatology Apple Kaminski MD [address] [place] [address] [phone] 02/07/2020 Office Visit Orthopedics Zack Teague, [address] [place] [address] [phone] 02/26/2020 Office Visit Cardiology Rey Woodall MD [address] [place] [address] [phone] 05/08/2020 Office Visit Family Medicine Kevin Whiteside, [address] [address] [phone] 11/27/2020 Office Visit Pulmonary Celsa Tafoya CRNP [address] [place] [address] [phone] Health Maintenance Due Date Last Done Comments Zoster Vaccines (3 of 3) 01/02/2020 11/07/2019, 11/24 Yearly B-12 03/14/2020 03/14/2019, 05/16/2018 DIABETES-EYE EXAM 04/05/2020 04/05/2019, (Done elsewhere), 12/18/2009, Additional history exists DIABETES-HGBA1C EVERY 6 MONTHS 05/07/2020 11/07/2019, 08/09/2019, 03/14/2019, Additional history exists DIABETES-URINE MICROALBUMIN EVERY 12 MONTHS 05/24/2020 05/24/2019, 02/26/2019, 12/23/2018, Additional history exists CKD GFR USE SMARTSET 00034 06/06/202012/04, 11/07/2019, 09/10/2019, Additional history exists BREAST CANCER SCREENING DISCUSSION YEARLY AGES 40-75 07/10/2020 07/10/2019, 06/23/2018, 05/09/2015, Additional history exists CKD HGB USE SMARTSET 39498 09/10/202009/10, 07/20/2019, 02/26/2019, Additional history exists CKD PHOS USE SMARTSET 78750 11/07/202010/27, 12/29/2017, 08/26/2009, Additional history exists DIABETES-FOOT [...] Documents on File Type Date Recorded Patient Fertilizer Mixer Expl 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
--- OUTSIDE RECORDS SUMMARY | 2023-06-01 05:31 | External Medical Summary | Summary of Care ---
Author Name Unknown Organization [place] [address] Care Team Providers Care Payroll Accountant Name Role Phone Stevo Kevin Ocampomelinda Primary Care Provider Encounter Details Date Type Department Care Team Description 11/30/2019 Result Scan Unspecified Department <No scans attached> Allergies Active Allergy Reactions Severity Noted Date Comments Pollen 05/18/2019 Heparin 09/04/2009 Heparin Induced Thrombocytopenia Empagliflozin Other (Please comment) Medium 05/17/2018 3 yeast infections in 6 weeks after starting Morphine And Related 09/16/1997 Hallucinations Tetanus Toxoid Other (Please comment) 06/15/2011 Passed out documented as of this encounter (statuses as of 12/13/2019) Medications Medication Sig Dispensed Refills Start Date [...] 08/09/2019 Active Vitamin D, Ergocalciferol, 1.25 MG (84062 UT) CapsuleIndications:V itamin D deficiency Take 1 [...] via NC with exertion. 0 11/28/2019 Active Hospital, Clinic, or Other Facility Administered Medication Ordered Dose Route Frequency Start Date End Date Status levalbuterol (XOPENEX) inhalation solution 0.63 mgIndications:Wheezing 0.63 mg NEBULIZER Q4H PRN 09/12/2019 Ac tive documented as of this encounter (statuses as of 12/13/2019) Active Problems Problem Noted Date Primary osteoarthritis [...] 10/14/2014 Overview: ICD-10 update of inactive term Kiln filter in place 08/19/2014 History of pulmonary [...] as of this encounter (statuses as of 12/13/2019) Resolved Problems Problem Noted Date Resolved Date Other atherosclerosis of lorrie amrtinez arteries of extremities, left leg 02/26/2019 11/20/2019 [...] as of this encounter (statuses as of 12/13/2019) Immunizations Name Administration Dates Next Due Pneumococcal [...] Nephrology Gia White MD [address] [place] [id number] 12/24/2019 Home Visit Family Medicine Mira Duong, [facility] Organ Pipe Finisher [address] [facility] [address] 01/02/2020 Office Visit Pharmacy [facility], [facility] [place] [address] [facility] [place] [address] 02/04/2020 Office Visit Dermatology Apple Kaminski MD [address] [place] [facility] [place] [address] [phone] 02/07/2020 Office Visit Orthopedics Zack Teague, DO [address] [place] [address] 02/26/2020 Office Visit Cardiology Rey Woodall MD [address] [place] [address] 05/08/2020 Office Visit Family Medicine Kevin Whiteside, [address] [place] [address] 11/27/2020 Office Visit Pulmonary Celsa Tafoya CRNP [address] [place] [id number] Health Maintenance Due Date Last Done Comments Zoster Vaccines (3 of 3) 01/02/2020 11/07/2019, 11/24 Yearly B-12 03/14/2020 03/14/2019, 05/16/2018 DIABETES-EYE EXAM 04/05/2020 04/05/2019, (Done elsewhere), 12/18/2009, Additional history exists DIABETES-HGBA1C EVERY 6 MONTHS 05/07/2020 11/07/2019, 08/09/2019, 03/14/2019, Additional history exists DIABETES-URINE MICROALBUMIN EVERY 12 MONTHS 05/24/2020 05/24/2019, 02/26/2019, 12/23/2018, Additional history exists CKD GFR USE SMARTSET 31335 06/06/202012/04, 11/07/2019, 09/10/2019, Additional history exists BREAST CANCER SCREENING DISCUSSION YEARLY AGES 40-75 07/10/2020 07/10/2019, 06/23/2018, 05/09/2015, Additional history exists CKD HGB USE SMARTSET 10360 09/10/202009/10, 07/20/2019, 02/26/2019, Additional history exists CKD PHOS USE SMARTSET 39300 11/07/202010/27, 12/29/2017, 08/26/2009, Additional history exists DIABETES-FOOT [...] Date/Time Associated Diagnosis Comments EKG SCANNED RESULT 11/30/2019 EKG SCANNED RESULT 11/30/2019 RADIOLOGY SCANNED RESULT 11/30/2019 RADIOLOGY SCANNED RESULT 11/30/2019 documented in this encounter Results * RADIOLOGY SCANNED RESULT (11/30/2019) Specimen Narrative Performed At * RADIOLOGY SCANNED RESULT (11/30/2019) Specimen Narrative Performed At * EKG SCANNED RESULT (11/30/2019) Specimen Narrative Performed At * EKG SCANNED RESULT (11/30/2019) Specimen Narrative Performed At documented in this [...]
--- OUTSIDE RECORDS SUMMARY | 2023-06-01 05:31 | External Medical Summary | Summary of Care ---
Author Name Unknown Organization [place] [address] Care Team Providers Care Aircraft Armorer Name Role Phone Kevin Whiteside DO Primary Care Provider Reason for Visit * Reason Comments Medication Pre-auth traMADol (ULTRAM) 50 MG Tablet Encounter Details Date Type Department Care Team Description 12/10/2019 Telephone Family Practice [facility] [address] [place] [address] Kevin Whiteside DO [address] [facility] [place] [address] Medication Pre-auth (traMADol (ULTRAM) 50 ... Allergies Active Allergy Reactions Severity Noted Date Comments Pollen 05/18/2019 Heparin 09/04/2009 Heparin Induced Thrombocytopenia Empagliflozin Other (Please comment) Medium 05/17/2018 3 yeast infections in 6 weeks after starting Morphine And Related 09/16/1997 Hallucinations Tetanus Toxoid Other (Please comment) 06/15/2011 Passed out documented as of this encounter (statuses as of 12/10/2019) Medications Medication Sig Dispensed Refills Start Date [...] 08/09/2019 Active Vitamin D, Ergocalciferol, 1.25 MG (26960 UT) CapsuleIndications:V itamin D deficiency Take 1 [...] goal of 7.0%-8.0% ([facility]) Take 1 Cap by mouth 3 times a day. 270 Cap 5 10/15/2019 Active Nortriptyline HCl (PAMELOR) 50 MG CapsuleIndications:F ibromyalgia Take 1 Cap by mouth at bedtime. 90 Cap 2 10/25/2019 Active colchicine 0.6 MG TabletIndications:Le ukocytoclastic vasculitis ([facility]) Take 1/2 tab daily 45 Tab 0 10/29/2019 Active Dulaglutide (TRULICITY) 1.5 MG/0.5ML SOPNIndications:DM type 2 nursing care encounter ([facility]),Uncontrolled type 2 diabetes mellitus with stage 3 chronic kidney disease, with long-term current use of insulin ([facility]) Inject 1.5 mg under [...] as of this encounter (statuses as of 12/10/2019) Active Problems Problem Noted Date Primary osteoarthritis [...] as of this encounter (statuses as of 12/10/2019) Resolved Problems Problem Noted Date Resolved Date [...] as of this encounter (statuses as of 12/10/2019) Immunizations Name Administration Dates Next Due Pneumococcal [...] Telephone Encounter - Izabela Crump LPN - 12/10/2019 1:53 PM EDT Faxed today's OV note to number below. * Telephone Encounter - Mindy Ibarra PHARM Tech - 12/10/2019 12:51 PM EDT P is calling to advise [facility] sent a prior auth for pt's traMADol (ULTRAM) 50 MG Tablet they will need further info faxed to [phone] for consideration. Thanks, Mindy Ibarra Field Operator Pharmacy Refill Call Center 12/10/2019,12:51 PM documented in this encounter Plan of Treatment Upcoming Encounters Date Type Specialty Care Team Description 12/11/2019 Home Visit [facility] [place] Brooke Jose, RN [address] [place] [address] 12/19/2019 Office Visit Nephrology Gia White MD [address] [place] [address] [phone] 01/02/2020 Office Visit Pharmacy [facility] [place] [address] [place] [address] 02/04/2020 Office Visit Dermatology Apple Kaminski MD [address] [place] [address] [phone] 02/07/2020 Office Visit Orthopedics Zack Teague, [address] [place] [address] 02/26/2020 [facility] [place] [address] 05/08/2020 Office Visit Family Medicine [facility]ide[facility] [place] [place] [address] 11/27/2020 Office Visit Pulmonary Celsa Tafoya CRNP [address] [facility] [place] [address] Health Maintenance Due Date Last Done Comments Zoster Vaccines (3 of 3) 01/02/2020 11/07/2019, 11/24 Yearly B-12 03/14/2020 03/14/2019, 05/16/2018 DIABETES-EYE EXAM 04/05/2020 04/05/2019, (Done elsewhere), 12/18/2009, Additional history exists DIABETES-HGBA1C EVERY 6 MONTHS 05/07/2020 11/07/2019, 08/09/2019, 03/14/2019, Additional history exists DIABETES-URINE MICROALBUMIN EVERY 12 MONTHS 05/24/2020 05/24/2019, 02/26/2019, 12/23/2018, Additional history exists CKD GFR USE SMARTSET 60903 06/06/202012/04, 11/07/2019, 09/10/2019, Additional history exists BREAST CANCER SCREENING DISCUSSION YEARLY AGES 40-75 07/10/2020 07/10/2019, 06/23/2018, 05/09/2015, Additional history exists CKD HGB USE SMARTSET 31942 09/10/202009/10, 07/20/2019, 02/26/2019, Additional history exists CKD PHOS USE SMARTSET 46149 11/07/202010/27, 12/29/2017, 08/26/2009, Additional history exists DIABETES-FOOT [...] Documents on File Type Date Recorded Patient Sql Data Architect Expl 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
--- OUTSIDE RECORDS SUMMARY | 2023-06-01 05:31 | External Medical Summary | Summary of Care ---
Author Name Unknown Organization [place] [address] Care Team Providers Care Data Processing Control Clerk Name Role Phone Kevin Whiteside DO Primary Care Provider Reason for Referral * Evaluate & Treat - Unlimited Visits (Within 3 days (urgent)) Status Reason Specialty Diagnoses / Procedures Referred By Contact Referred To Contact Authorized Specialty Services Required Nephrology Diagnoses Chronic kidney disease, unspecified CKD stage Angi Barr PA-C [address] [place] [address] Reason for Visit * Reason Comments Follow Up Encounter Details Date Type Department Care Team Description 12/05/2019 Telephone Family Practice [facility] [address] [address] Angi [facility] PA-C [address] [facility] [place] [address] [phone] Follow Up Allergies Active Allergy Reactions Severity Noted Date Comments Pollen 05/18/2019 Heparin 09/04/2009 Heparin Induced Thrombocytopenia Empagliflozin Other (Please comment) Medium 05/17/2018 3 yeast infections in 6 weeks after starting Morphine And Related 09/16/1997 Hallucinations Tetanus Toxoid Other (Please comment) 06/15/2011 Passed out documented as of this encounter (statuses as of 12/07/2019) Medications Medication Sig Dispensed Refills Start Date [...] 08/09/2019 Active Vitamin D, Ergocalciferol, 1.25 MG (35882 UT) CapsuleIndications:V itamin D deficiency Take 1 [...] a day. 270 Cap 5 10/15/2019 Active traMADol (ULTRAM) 50 MG TabletIndications:Ch ronic pain syndrome Take 1 Tab by mouth every 8 hours as needed for Pain, Severe. 90 Tab 0 10/19/2019 Active Nortriptyline HCl (PAMELOR) 50 MG CapsuleIndications:F [...] as of this encounter (statuses as of 12/07/2019) Active Problems Problem Noted Date Primary osteoarthritis [...] as of this encounter (statuses as of 12/07/2019) Resolved Problems Problem Noted Date Resolved Date [...] mass index (BMI) of 40.0-44.9 in adult 11/10/200905/24/2017 Obesity, morbid (more than 1 00 lbs [...] as of this encounter (statuses as of 12/07/2019) Immunizations Name Administration Dates Next Due Pneumococcal [...] Miscellaneous Notes * Telephone Encounter - Angi Barr PA-C - 12/06/2019 4:26 PM EDT See other phone encounter, Rx sent. Pt to be notified. * Telephone Encounter - Violet Meier LPN - 12/06/2019 2:03 PM EDT Will forward message below from Dr. White to PCP. * Telephone Encounter - Violet Meier LPN - 12/06/2019 2:03 PM EDT Scheduled date is okay. Patient has a UTI. Please make sure someone has given her antibiotics. Do not use Bactrim for treatment of UTI. Gia White MD * Telephone Encounter - Bharati Jorge OSA - 12/06/2019 1:48 PM EDT Scheduled and aware * Telephone Encounter - Violet Meier LPN - 12/06/2019 1:22 PM EDT Please call and offer 12/19/2019at 1;40 PM. In the meantime nurse will forward message to dr. Whitefor any additional instructions. Dr. White - is 12/19/2019 soon enough to see this patient?do you want any additional labs or testing completed? * Telephone Encounter - Bharati Jorge OSA - 12/06/2019 1:16 PM EDT Pt last saw José Migueljvrosalino. Referral is an urgent one. Nothing available with Christopher next week. Please advise * Telephone Encounter - Angi Barr PA-C - 12/05/2019 4:09 PM EDT Please call pt and inform that lab work is back, kidney functions not improving. I did review with Dr Whiteside. We are placing a referral for nephrology (specialist for the kidneys) given the progression. CKD with some acute kidney decline. documented in this encounter Plan of Treatment Upcoming Encounters Date Type Specialty Care Team Description 12/07/2019 Home Visit [facility] [place], [place], Jazz Singer [address] [address] [phone] 12/10/2019 Office Visit Family Medicine Kevin Whiteside DO [address] [address] [phone] 12/11/2019 Home Visit [facility] Brooke Jose RN [address] [address] [phone] 12/19/2019 Office Visit Nephrology Gia White MD [address] [facility] [place] [address] [phone] 01/02/2020 Office Visit Pharmacy [facility] [place] [address] [place] [address] 02/04/2020 Office Visit Dermatology Apple Kaminski MD [address] [facility] [place] [place] [address] [phone] 02/07/2020 Office Visit Orthopedics Zack Teague, DO [address] [place] [address] [phone] 02/26/2020 Office Visit Cardiology Rey Woodall MD [address] [place] [address] 05/08/2020 Office Visit Family Medicine Kevin Whiteside, [address] [place] [address] [phone] 11/27/2020 Office Visit Pulmonary Celsa Tafoya CRNP [address] [place] [address] [phone] Scheduled Referrals Name Type Priority Associated Diagnoses Orde r Schedule NEPHROLOGY REFERRAL OP Referral Within 3 days (urgent) Chronic kidney disease, unspecified CKD stage Ordered: 12/05/2019 Health Maintenance Due Date Last Done Comments Zoster Vaccines (3 of 3) 01/02/2020 11/07/2019, 11/24 Yearly B-12 03/14/2020 03/14/2019, 05/16/2018 DIABETES-EYE EXAM 04/05/2020 04/05/2019, (Done elsewhere), 12/18/2009, Additional history exists DIABETES-HGBA1C EVERY 6 MONTHS 05/07/2020 11/07/2019, 08/09/2019, 03/14/2019, Additional history exists DIABETES-URINE MICROALBUMIN EVERY 12 MONTHS 05/24/2020 05/24/2019, 02/26/2019, 12/23/2018, Additional history exists CKD GFR USE SMARTSET 34472 06/06/202012/04, 11/07/2019, 09/10/2019, Additional history exists BREAST CANCER SCREENING DISCUSSION YEARLY AGES 40-75 07/10/2020 07/10/2019, 06/23/2018, 05/09/2015, Additional history exists CKD HGB USE SMARTSET 05914 09/10/202009/10, 07/20/2019, 02/26/2019, Additional history exists CKD PHOS USE SMARTSET 34328 11/07/202010/27, 12/29/2017, 08/26/2009, Additional history exists DIABETES-FOOT [...] of this encounter Visit Diagnoses Diagnosis Chronic kidney disease, unspecified CKD stage- Primary ELSIE (acute kidney injury) (HCC) Acute kidney failure, unspecified documented in this encounter Advance Directives Documents on File Type Date Recorded Patient Lens Marker Expl 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
--- OUTSIDE RECORDS SUMMARY | 2023-06-01 05:31 | External Medical Summary | Summary of Care ---
Author Name Unknown Organization [place] [address] Care Team Providers Care Insurance Counselor Name Role Phone Kevin Whiteside DO Primary Care Provider Reason for Referral * Medication Prior Authorization (Routine) Status Reason Specialty Diagnoses / Procedures Referred By Contact Referred To Contact Pending Review Diagnoses Chronic pain syndrome Kevin Whiteside DO [address] [address] Reason for Visit * Reason Comments Follow Up pt reports she has a few concerns Encounter Details Date Type Department Care Team Description 12/10/2019 Office Visit Family [facility] [address] [address] Kevin Whiteside DO [address] [address] [phone] Chronic pain syndrome*; Chronic kidney disease, unspecified CKD stage; Uncontrolled type 2 diabetes mellitus with stage 3 chronic kidney disease, with long-term current use of insulin ([facility]); Acute cystitis with hematuria; Dyslipidemia; Hyperparathyroidism, secondary renal ([facility]); 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 90 Tab 3 02/13/2019 Active clobetasol propionate (TEMOVATE) 0.05 % ointmentIndications :Irritant contact dermatitis, unspecified trigger Apply topically to affected area 2 times a day. To affected area for up to two weeks. 60 g 1 02/13/2019 Active Insulin Pen Needle (BD PEN NEEDLE SHORT U/F) 31G X 8 MM Use 5 times daily with insulin 200 Box Dosing Unit 11 02/26/2019 Active rOPINIRole (REQUIP) 2 MG TabletIndications:R estless legs syndrome Take 1 Tab by mouth at bedtime. 90 Tab 3 03/07/2019 Active traZODone (DESYREL) 50 MG Tablet Take 1 Tab by mouth at bedtime. 30 Tab 5 04/04/2019 Active Glucose Blood (ONETOUCH ULTRA BLUE) STRP Check sugars 3-4 times daily 400 Strip 2 04/21/2019 Active furosemide (LASIX) 40 MG TabletIndications:C hronic [...] 08/09/2019 Active Vitamin D, Ergocalciferol, 1.25 MG (26631 UT) CapsuleIndications: Vitamin D deficiency Take 1 Cap by mouth every 4 weeks. 13 Cap 0 08/24/2019 Active levothyroxine (LEVOXYL) 200 MCG TabletIndications:P ostsurgical hypothyroidism TAKE ONE TABLET BY MOUTH EVERY DAY AT LEAST 30 MINUTES BEFORE BREAKFAST OR OTHER MEDS 90 Tab 4 09/02/2019 Active levothyroxine (LEVOXYL) 25 MCG TabletIndications:P ostsurgical hypothyroidism TAKE ONE TABLET BY MOUTH IN THE MORNING AT LEAST 30 MINUTES PRIOR TO BREAKFAST OR OTHER MEDS 90 Tab 1 09/02/2019 Active clobetasol propionate (TEMOVATE) 0.05 % creamIndications:Va sculitis (HCC) apply to rash on the legs and arm twice daily x 1-2 weeks. 30 g 5 09/10/2019 Active insulin aspart (INSULIN ASPART) 100 UNIT/ML injection USE IN INSULIN PUMP UP TO 200 UNITS PER DAY 30 mL 7 09/13/2019 Active DULoxetine (CYMBALTA) 60 MG CPEPIndications:Fib romyalgia,Moderate episode of recurrent major depressive disorder (HCC),Primary osteoarthritis of both knees Take 1 Cap by mouth daily. Along with 30 mg capsule to total 90 mg daily. 90 Cap 4 10/11/2019 Active gabapentin (NEURONTIN) 300 MG CapsuleIndications: Type 2 diabetes mellitus with hemoglobin A1c goal of 7.0%-8.0% ([facility]) Take 1 Cap by mouth 3 times a day. 270 Cap 5 10/15/2019 Active Nortriptyline HCl (PAMELOR) 50 MG CapsuleIndications: Fibromyalgia Take 1 Cap by mouth at bedtime. 90 Cap 2 10/25/2019 Active colchicine 0.6 MG TabletIndications:L eukocytoclastic vasculitis ([facility]) Take 1/2 tab daily 45 Tab 0 10/29/2019 Active Dulaglutide (TRULICITY) 1.5 MG/0.5ML SOPNIndications:DM type 2 nursing care encounter ([facility]),Uncontrolled type 2 diabetes mellitus with stage 3 chronic kidney disease, with long-term current use of insulin ([facility]) Inject 1.5 mg under the [...] 0 11/28/2019 Active cephalexin (KEFLEX) 250 MG CapsuleIndications: Acute cystitis without hematuria Take 1 Cap by mouth 2 times a day for 10 days. 20 Cap 0 12/06/2019 0 Active traMADol (ULTRAM) 50 MG TabletIndications:C hronic pain syndrome Take 1 Tab by mouth every 8 hours as needed for Pain, Severe. 90 Tab 0 12/10/2019 Active traMADol (ULTRAM) 50 MG TabletIndications:C hronic pain syndrome Take 1 Tab by mouth every 8 hours as needed for Pain, Severe. 90 Tab 0 10/19/2019 0 Discontinu ed(Refill) Hospital, Clinic, or Other Facility [...] Travel End documented as of this encounter Last Filed Vital Signs Vital Sign Reading Time Taken Comments Blood Pressure 124/70 12/10/2019 11:01 AM EDT Pulse 100 12/10/2019 11:01 AM EDT Temperature 36.5 C (97.7 F) 12/10/2019 11:01 AM E DT Respiratory Rate 24 12/10/2019 11:01 AM EDT Oxygen Saturation 99% 12/10/2019 11:01 AM EDT Inhaled Oxygen Concentration - - Weight 141.1 kg (311 lb) 12/10/2019 11:01 AM EDT Height - - Body Mass Index 53.38 11/30/2019 9:05 AM EST documented in this encounter Progress Notes * Kevin Whiteside, DO - 12/10/2019 11:10 AM EDT Nursing Notes: Izabela Crump, CHUYITA 12/10/19 1103 Signed The patient has been properly identified by confirmation of name and date of . Chief Complaint Patient presents with Follow Up pt reports she has a few concerns ASSESSMENT/PLAN: 1. Chronic pain syndrome Ongoing knee pain Doing well with diet and weight loss Still in just as much pain Agreeable with potential knee replacement - traMADol (ULTRAM) 50 MG Tablet; Take 1 Tab by mouth every 8 hours as needed for Pain, Severe. Dispense: 90 Tab; Refill: 0 2. Chronic kidney disease, unspecified CKD stage Ongoing care and medication optimization Continue f/u with nephrology Encouraged adequate water intake Could reduce meds if this becomes necessary to include gabapentin, colchicine, 3. Uncontrolled type 2 diabetes mellitus with stage 3 chronic kidney disease, with long-term current use of insulin ([facility]) - HEMOGLOBIN A1C; Future 4. Acute cystitis with hematuria Getting f/u culture after treatment with abx Not having sx outside of some lower abdominal pressure - CULTURE QUANT URINE; Future 5. Dyslipidemia Recheck labs 6. Hyperparathyroidism, secondary renal (HCC) F/u with nephro 7. 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 Body mass index (BMI) of 50.0 to 59.9 in adult ([facility]) improving HPI: Stephanie Camp is a 64 year old female who: Presents today in follow-up for evaluation of her chronic conditions. Patient already had hospital follow-up encounter. Patient overall compliant with medications and has been losing some weight due to dietary reduction of calories. Notes that she is still pain knee that is just as bad as always. Is looking forward to trying to get outside to exercise, but knee pain has been limiting. Was taking advil for the knee until she heard about her kidney numbers. ROS: CONSTITUTIONAL: no weight loss, no fevers, [...] numbness PSYCH: no SI/HI PHYSICAL EXAMINATION: BP 124/70 | Pulse 100 | Temp (Src) 97.7 (Tympanic) | Resp 24 | Wt 311 lbs (141.069kg) | BMI 53.38 kg/m | BSA 2.52 m | SaO2 99% | LMP 03/11/2003 GENERAL: alert, healthy, no [...] gait normal, reflexes normal and symmetric MSK: Patient Active Problem List Diagnosis Code Dyslipidemia E78.5 ELLIE (generalized anxiety disorder) F41.1 Postsurgical hypothyroidism E89.0 Nocturnal hypoxemia G47.34 ELISSA (obstructive sleep apnea) G47.33 Venous insufficiency I87.2 HTN, goal below 130/80 I10 History of pulmonary embolus (PE) Z86.711 Statin intolerance Z78.[address] Z95.828 Type 2 diabetes mellitus with hemoglobin A1c goal of 7.0%-8.0% ([facility]) E11.9 Fibromyalgia M79.7 Abnormality of gait R26.9 Restless legs syndrome G25.81 Gastroesophageal reflux disease with esophagitis K21.0 Uncontrolled type 2 diabetes mellitus with stage 3 chronic kidney disease, with long-term current use of insulin ([facility]) E11.22, E11.65, N18.3, Z79.4 Body mass index (BMI) of 50.0 to 59.9 in adult ([facility]) Z68.43 Controlled substance agreement signed Z79.899 Chronic diastolic congestive heart failure ([facility]) I50.32 Thoracic back pain M54.6 Mild episode of recurrent major depressive disorder ([facility]) F33.0 Lumbar radiculopathy M54.16 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, NYHA class 1 and CKD stage 3 ([facility]) I13.0, I50.30, N18.3 Chronic respiratory failure with hypoxia ([facility]) J96.11 Hyperparathyroidism, secondary renal ([facility]) N25.81 Vasculitis ([facility]) I77.6 Primary osteoarthritis of left knee M17.12 Past Medical History: Diagnosis Date ELSIE (acute kidney injury) ([facility]) 06/12/2018 Allergic rhinitis due to other allergen Backache Diverticulosis of colon 01/28/06 DM type 2, not at goal ([facility]) ELLIE (generalized anxiety disorder) 09/13/2009 Goiter [place] filter in place 08/19/2014 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[facility]) 08/22/2009 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[facility]) 06/12/2018 History of pulmonary embolus (PE) 07/16/2014 HTN, goal below 140/90 Impetigo 09/27/2018 Obesity, BMI not known Perforation of intestine ([facility]) 1996 COLON -- 1996 Pneumonia in aspergillosis(484.6) 09/14/2009 Spontaneous pneumothorax 09/14/2009 Statin intolerance 07/16/2014 Type 2 diabetes mellitus with hemoglobin A1c goal of 7.0%-8.0% ([facility]) 10/14/2014 ICD-10 update of inactive term Vaginal karmen 07/13/2018 Past Surgical History: Procedure Laterality Date ARTHROPLASTY KNEE TOTAL Right 07/24/14 R COLONOSCOPY, DIAGNOSTIC (RECTUM) 02/18/2016 normal, repeat 10 yrs/[facility] COLONOSCOPY, GI REFERRAL OP 5/5/06 diverticulosis--repeat 10 years INCISION OF [place], PLANNED 06/03/2011 TRACHEOSTOMY PLANNED performed by DANNY HOLDER at [facility] KNEE ARTHROSCOPY/DEBRIDEMENT 07/[address] PERMANENT GASTROSTOMY TUBE 09/06/09 GASTROSTOMY WITH CONSTUCTION GASTRIC TUBE performed by AMADOU NUNEZ at [facility] REMOVAL OF THYROID GLAND 06/15/2011 THYROIDECTOMY INCLUDING SUBSTERNAL THYROID CERVICAL APPROACH performed by DANNY HOLDER at [facility] REMOVE GALLBLADDER 09/06/09 CHOLECYSTECTOMY performed by AMADOU NUNEZ at [facility] REPAIR RECURRENT INCISIONAL HERNIA 1998 REVISION OF COLOSTOMY, SIMPLE 1998 SUTURE, LARGE INTESTINE W/COLOSTOMY 1996 perforation R colon with colostomy VENA CAVA FILTER/LIGATION/CLIP 08/19/09 [place] filter placement through the right femoral 08/19/[address] Lerma at [facility] Current Outpatient Medications Medication Sig Dispense Refill traMADol (ULTRAM) 50 MG Tablet Take 1 Tab by mouth every 8 hours as needed for Pain, Severe. 90Tab 0 cephalexin (KEFLEX) 250 MG Capsule Take 1 Cap by mouth 2 times a day for 10 days. 20 Cap 0 oxygen GAS 2 LPM bled through CPAP 11 cwp during all periods of sleep and 2 LPM via NC with exertion. clonazePAM (KLONOPIN) 0.5 MG Tablet TAKE ONE TABLET BY MOUTH TWICE DAILY 60 Tab 0 insulin aspart (NOVOLOG) 100 UNIT/ML SOPN Inject 25 Units under the skin three times a day withmeals. 5 Pre-filled Pen Syringe Dosing Unit 1 Dulaglutide (TRULICITY) 1.5 MG/0.5ML SOPN Inject 1.5 mg under the skin once a week. 5 Pre-filled Pen Syringe Dosing Unit 5 colchicine 0.6 MG Tablet Take 1/2 tab daily 45 Tab 0 Nortriptyline HCl (PAMELOR) 50 MG Capsule Take 1 Cap by mouth at bedtime. 90 Cap 2 gabapentin (NEURONTIN) 300 MG Capsule Take 1 Cap by mouth 3 times a day. 270 Cap 5 DULoxetine (CYMBALTA) 60 MG CPEP Take 1 Cap by mouth daily. Along with 30 mg capsule to total 90 mg daily. 90 Cap 4 insulin aspart (INSULIN ASPART) 100 UNIT/ML injection USE IN INSULIN PUMP UP TO 200 UNITS PER DAY 30 mL 7 levothyroxine (LEVOXYL) 200 MCG Tablet TAKE ONE TABLET BY MOUTH EVERY DAY AT LEAST 30 MINUTES BEFORE BREAKFAST OR OTHER MEDS 90 Tab 4 levothyroxine (LEVOXYL) 25 MCG Tablet TAKE ONE TABLET BY MOUTH IN THE MORNING AT LEAST 30 MINUTES PRIOR TO BREAKFAST OR OTHER MEDS 90 Tab 1 Vitamin D, Ergocalciferol, 1.25 MG (20576 UT) Capsule Take 1 Cap by mouth every 4 weeks. 13 Cap0 DULoxetine (CYMBALTA) 30 MG CPEP Take 1 Cap by mouth daily. Take along with the 60mg dose for totally of 90mg daily. Do not cut, crush or chew 90 Cap 5 spironolactone (ALDACTONE) 25 MG Tablet Take 1 Tab by mouth daily. 90 Tab 3 Magnesium Oxide 400 (241.3 mg) Tablet Take 400 mg by mouth daily. 90 Tab 3 furosemide (LASIX) 40 MG Tablet Take 40 mg by mouth daily. 180 Tab 3 Glucose Blood (ONETOUCH ULTRA BLUE) STRP Check sugars 3-4 times daily 400 Strip 2 traZODone (DESYREL) 50 MG Tablet Take 1 Tab by mouth at bedtime. 30 Tab 5 rOPINIRole (REQUIP) 2 MG Tablet Take 1 Tab by mouth at bedtime. 90 Tab 3 Insulin Pen Needle (BD PEN NEEDLE SHORT U/F) 31G X 8 MM Use 5 times daily with insulin 200 Box Dosing Unit 11 clobetasol propionate (TEMOVATE) 0.05 % ointment Apply topically to affected area 2 times a day. To affected area for up to two weeks. 60 g 1 metoprolol tartrate (LOPRESSOR) 25 MG Tablet Take 0.5 Tabs by mouth 2 times a day. 90 Tab 3 Blood Glucose Monitoring Suppl (ONETOUCH ULTRA 2) w/Device KIT Use to test BG values 1 Kit 0 ACCU-CHEK SOFTCLIX LANCETS MISC Test sugar 3-4 times a day. Ok to substitute Fastclix lancets, if needed. 400 Box Dosing Unit 3 Glucose Blood (ACCU-CHEK HARRSI PLUS) STRP Test sugar 3-4 times a [...] times a day as needed for Constipation. PRILOSEC 20 MG PO CPDR one tablet daily clobetasol propionate (TEMOVATE) 0.05 % cream apply to rash on the legs and arm twice daily x 1-2 weeks. 30 g 5 Review of patient's allergies indicates: Allergen Reactions Jardiance [Empagliflozin] Other (Please comment) 3 yeast infections in 6 weeks after starting Hay Fever [Pollen] Heparin Heparin Induced Thrombocytopenia Morphine And Related Hallucinations Tetanus Toxoid Other (Please comment) Passed out Kevin Whiteside DO Family [facility] [address] [place] [address] (This note was completed using the dictation program Fluency Direct. As such, there may be misspellings, word substitutions, or other variations that should not change the essence of the clinical content of this encounter note.If there is need for further clarification, please direct questions to the provider listed above.) documented in this encounter Nursing Notes * Izabela Crump LPN - 12/10/2019 11:01 AM EDT The patient has been properly identified by confirmation of name and date of . Chief Complaint Patient presents with Follow Up pt reports she has a few concerns documented in this encounter Plan of Treatment Upcoming Encounters Date Type Specialty Care Team Description 12/11/2019 Home Visit [facility] [place] Brooke Jose RN [address] [address] [phone] 12/19/2019 Office Visit Nephrology Gia White MD [address] [address] [phone] 01/02/2020 Office Visit [facility] [address] [address] 02/04/2020 Office Visit Dermatology Apple Kaminski MD [address] [place] [address] [phone] 02/07/2020 Office Visit Orthopedics Zack Teague, DO [address] [facility] [place] [address] [phone] 02/26/2020 Office Visit Cardiology Rey Woodall MD [address] [place] [address] 05/08/2020 Office Visit Family Medicine Kevin Whiteside, DO [address] [place] [address] 11/27/2020 Office Visit Pulmonary Celsa Tafoya CRNP [address] [place] [address] Scheduled Orders Name Type Priority Associated Diagnoses Orde r Schedule HEMOGLOBIN A1C Lab Routine Uncontrolled type 2 diabetes mellitus with stage 3 chronic kidney disease, with long-term current use of insulin (HCC) Expected: 12/10/2019 (Approximate), Expires: 12/09/2020 CULTURE QUANT URINE Lab Routine Acute cystitis with hematuria Expected: 12/10/2019 (Approximate), Expires: 03/11/2020 Health Maintenance Due Date Last Done Comments Zoster Vaccines (3 of 3) 01/02/2020 11/07/2019, 11/24 Yearly B-12 03/14/2020 03/14/2019, 05/16/2018 DIABETES-EYE EXAM 04/05/2020 04/05/2019, (Done elsewhere), 12/18/2009, Additional history exists DIABETES-HGBA1C EVERY 6 MONTHS 05/07/2020 11/07/2019, 08/09/2019, 03/14/2019, Additional history exists DIABETES-URINE MICROALBUMIN EVERY 12 MONTHS 05/24/2020 05/24/2019, 02/26/2019, 12/23/2018, Additional history exists CKD GFR USE SMARTSET 07554 06/06/202012/04, 11/07/2019, 09/10/2019, Additional history exists BREAST CANCER SCREENING DISCUSSION YEARLY AGES 40-75 07/10/2020 07/10/2019, 06/23/2018, 05/09/2015, Additional history exists CKD HGB USE SMARTSET 28227 09/10/202009/10, 07/20/2019, 02/26/2019, Additional history exists CKD PHOS USE SMARTSET 30242 11/07/202010/27, 12/29/2017, 08/26/2009, Additional history exists DIABETES-FOOT [...] Visit Diagnoses Diagnosis Chronic pain syndrome- Primary Chronic kidney disease, unspecified CKD stage Uncontrolled type 2 diabetes mellitus with stage 3 chronic kidney disease, with long-term current use of insulin (HCC) Acute cystitis with hematuria Acute cystitis Dyslipidemia Other and unspecified hyperlipidemia Hyperparathyroidism, secondary renal (HCC) Secondary hyperparathyroidism (of renal origin) 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
--- OUTSIDE RECORDS SUMMARY | 2023-06-01 05:31 | External Medical Summary | Summary of Care ---
Author Name Unknown Organization [place] [address] Care Team Providers Care Tester Operator Helper Name Role Phone Kevin Whiteside DO Primary Care Provider Encounter Details Date Type Department Care Team Description 12/13/2019 Orders Only Family [facility] [address] [place] [address] Kevin Whiteside DO [address] [facility] [address] [place] [address] Allergies Active Allergy Reactions [...] 08/09/2019 Active Vitamin D, Ergocalciferol, 1.25 MG (19364 UT) CapsuleIndications:V itamin D deficiency Take 1 [...] of 7.0%-8.0% ([facility]) Take 1 Cap by mouth 3 times a day. 270 Cap 5 10/15/2019 Active Nortriptyline HCl (PAMELOR) 50 MG CapsuleIndications:F ibromyalgia Take 1 Cap by mouth at bedtime. 90 Cap 2 10/25/2019 Active colchicine 0.6 MG TabletIndications:Le ukocytoclastic vasculitis ([facility]) Take 1/2 tab daily 45 Tab 0 10/29/2019 Active Dulaglutide (TRULICITY) 1.5 MG/0.5ML SOPNIndications:DM type 2 nursing care encounter ([facility]),Uncontrolled type 2 diabetes mellitus with stage 3 chronic kidney disease, with long-term current use of insulin ([facility]) Inject 1.5 mg under the [...] 10/14/2014 Overview: ICD-10 update of inactive term Tanner filter in place 08/19/2014 History of pulmonary [...] Office Visit Nephrology Gia White MD [address] [facility] [address] [place] [address] [phone] 12/24/2019 Home Visit Family Medicine Mira Duong, [facility] [employer] [address] [place] [address] 01/02/2020 Office Visit Pharmacy [facility] [address] [place] [phone] 02/04/2020 Office Visit Dermatology Apple Kaminski MD [address] [place] [address] [phone] 02/07/2020 Office Visit Orthopedics Zack Teague, [address] [place] [address] 02/26/2020 Office Visit Cardiology Rey Woodall MD [address] [place] [phone] 05/08/2020 Office Visit Family Medicine Kevin Whiteside, [address] [place] [address] [phone] 11/27/2020 Office Visit Pulmonary Celsa Tafoya CRNP [address] [place] [address] [phone] Health Maintenance Due Date Last Done Comments Zoster Vaccines (3 of 3) 01/02/2020 11/07/2019, 11/24 Yearly B-12 03/14/2020 03/14/2019, 05/16/2018 DIABETES-EYE EXAM 04/05/2020 04/05/2019, (Done elsewhere), 12/18/2009, Additional history exists DIABETES-HGBA1C EVERY 6 MONTHS 05/07/2020 11/07/2019, 08/09/2019, 03/14/2019, Additional history exists DIABETES-URINE MICROALBUMIN EVERY 12 MONTHS 05/24/2020 05/24/2019, 02/26/2019, 12/23/2018, Additional history exists CKD GFR USE SMARTSET 39840 06/06/202012/04, 11/07/2019, 09/10/2019, Additional history exists BREAST CANCER SCREENING DISCUSSION YEARLY AGES 40-75 07/10/2020 07/10/2019, 06/23/2018, 05/09/2015, Additional history exists CKD HGB USE SMARTSET 79119 09/10/202009/10, 07/20/2019, 02/26/2019, Additional history exists CKD PHOS USE SMARTSET 12684 11/07/202010/27, 12/29/2017, 08/26/2009, Additional history exists DIABETES-FOOT [...] Priority Date/Time Associated Diagnosis Comments CHEMISTRY-OUTSIDE Routine 11/30/2019 documented in this encounter Results * CHEMISTRY-OUTSIDE (11/30/2019) CREATININE-OUTSIDE LAB 2.69(A) 0.6 - 1.2 MG/DL OUTSIDE LAB (SEE SCANNED REPORT) GFR ESTIMATED-OUTSIDE LAB 18.0 OUTSIDE LAB (SEE SCANNED REPORT) POTASSIUM-OUTSIDE LAB 4.2 3.5 - 5.1 MMOL/L OUTSIDE LAB (SEE SCANNED REPORT) GLUCOSE-OUTSIDE LAB 195(A) 70 - 99 MG/DL OUTSIDE LAB (SEE [...] LAB OUTSIDE LAB (SEE SCANNED REPORT) HEMOGLOBIN, [id number] LAB OUTSIDE LAB (SEE SCANNED REPORT) PHOSPHORUS-OUTSIDE LAB OUTSIDE LAB (SEE SCANNED REPORT) PTH-OUTSIDE LAB OUTSIDE LAB (SEE SCANNED REPORT) MICROALBUMIN RATIO-OUTSIDE LAB OUTSIDE LAB (SEE SCANNED REPORT) PROTEIN, UA-OUTSIDE LAB NEG NEG OUTSIDE LAB (SEE SCANNED REPORT) HEMOGLOBIN-OUTSIDE LAB 15.0 12.0 - 16.0 G/DL OUTSIDE LAB (SEE SCANNED REPORT) CHEMISTRY COMMENT-OUTSIDE LAB Comment:SEE SCAN: ED LABS: CBCD, UA, CMP, PT, INR, PTT, LIPASE, TROP OUTSIDE LAB (SEE SCANNED REPORT) Specimen Narrative Performed At Performing Organization Address City/State/Zipcod e Phone Number OUTSIDE LAB (SEE SCANNED REPORT) documented in this encounter Advance Directives Documents on File Type Date Recorded Patient Eyelet Cutter Expl 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
--- OUTSIDE RECORDS SUMMARY | 2023-06-01 05:31 | External Medical Summary | Summary of Care ---
Author Name Unknown Organization [place] [address] Care Team Providers Care Gage Maker Name Role Phone Stevo Kevin Ocampomelinda Primary Care Provider Reason for Visit * Reason Comments [facility]: Maintenance return Encounter Details Date Type Department Care Team Description 12/11/2019 [facility] [address] [facility] [place] [address] Brooke Jose, RN 132 [place] [address] [phone] Benign hypertensive heart and kidney disease with [...] a day. 400 Strip 3 8 Active ACCU-CHEK SOFTCLIX LANCETS MISC Test sugar 3-4 times a day. Ok to substitute Fastclix lancets, if needed. 400 Box Dosing Unit 3 8 Active Blood Glucose Monitoring Suppl (SabrTechTOUCH ULTRA 2) w/Device KIT Use to test BG values 1 Kit 0 9 Active metoprolol tartrate (LOPRESSOR) 25 MG TabletIndications:H TN, goal below 130/80,Acute diastolic congestive heart failure (HCC),Body mass index (BMI) of 50.0 to 59.9 in adult (HCC),Hypoxemia,ELISSA (obstructive sleep apnea),HTN, goal below 140/80 Take 0.5 Tabs by mouth 2 times a day. 90 Tab 3 9 Active clobetasol propionate (TEMOVATE) 0.05 % ointmentIndications :Irritant contact dermatitis, unspecified trigger Apply topically to affected area 2 times a day. To affected area for up to two weeks. 60 g 1 9 Active Insulin Pen Needle (BD PEN NEEDLE SHORT U/F) 31G X 8 MM Use 5 times daily with insulin 200 Box Dosing Unit 11 9 Active rOPINIRole (REQUIP) 2 MG TabletIndications:R estless legs syndrome Take 1 Tab by mouth at bedtime. 90 Tab 3 9 Active traZODone (DESYREL) 50 MG Tablet Take 1 Tab by mouth at bedtime. 30 Tab 5 9 Active Glucose Blood (ONETOUCH ULTRA BLUE) STRP Check sugars 3-4 times daily 400 Strip 2 9 Active furosemide (LASIX) 40 MG TabletIndications:C hronic diastolic congestive heart failure (HCC) Take 40 mg by mouth daily. 180 Tab 3 9 Active Magnesium Oxide 400 (241.3 mg) Tablet Take 400 mg by mouth daily. 90 Tab 3 9 Active spironolactone (ALDACTONE) 25 MG Tablet Take 1 Tab by mouth daily. 90 Tab 3 9 Active DULoxetine (CYMBALTA) 30 MG CPEP Take 1 Cap by mouth daily. Take along with the 60mg dose for totally of 90mg daily. Do not cut, crush or chew 90 Cap 5 9 Active Vitamin D, Ergocalciferol, 1.25 MG (02552 UT) CapsuleIndications: Vitamin D deficiency Take 1 Cap by mouth every 4 weeks. 13 Cap 0 9 Active levothyroxine (LEVOXYL) 200 MCG TabletIndications:P ostsurgical hypothyroidism TAKE ONE TABLET BY MOUTH EVERY DAY AT LEAST 30 MINUTES BEFORE BREAKFAST OR OTHER MEDS 90 Tab 4 9 Active levothyroxine (LEVOXYL) 25 MCG TabletIndications:P ostsurgical hypothyroidism TAKE ONE TABLET BY MOUTH IN THE MORNING AT LEAST 30 MINUTES PRIOR TO BREAKFAST OR OTHER MEDS 90 Tab 1 9 Active insulin aspart (INSULIN ASPART) 100 UNIT/ML injection USE IN INSULIN PUMP UP TO 200 UNITS PER DAY 30 mL 7 9 Active DULoxetine (CYMBALTA) 60 MG CPEPIndications:Fib romyalgia,Moderate episode of recurrent major depressive disorder (HCC),Primary osteoarthritis of both knees Take 1 Cap by mouth daily. Along with 30 mg capsule to total 90 mg daily. 90 Cap 4 0 Active gabapentin (NEURONTIN) 300 MG CapsuleIndications: Type 2 diabetes mellitus with hemoglobin A1c goal of 7.0%-8.0% ([facility]) Take 1 Cap by mouth 3 times a day. 270 Cap 5 0 Active Nortriptyline HCl (PAMELOR) 50 MG CapsuleIndications: Fibromyalgia Take 1 Cap by mouth at bedtime. 90 Cap 2 0 Active colchicine 0.6 MG TabletIndications:L eukocytoclastic vasculitis ([facility]) Take 1/2 tab daily 45 Tab 0 0 Active Dulaglutide (TRULICITY) 1.5 MG/0.5ML SOPNIndications:DM type 2 nursing care encounter ([facility]),Uncontrolled type 2 diabetes mellitus with stage 3 chronic kidney disease, with long-term current use of insulin ([facility]) Inject 1.5 mg under the skin once a week. 5 Pre-filled Pen Syringe Dosing Unit 5 0 Active insulin aspart (NOVOLOG) 100 UNIT/ML [...] via NC with exertion. 0 0 Active cephalexin (KEFLEX) 250 MG CapsuleIndications: Acute cystitis without hematuria Take 1 Cap by mouth 2 times a day for 10 days. 20 Cap 0 0 12/16/19 20 Active traMADol (ULTRAM) 50 MG TabletIndications:C hronic pain syndrome Take 1 Tab by mouth every 8 hours as needed for Pain, Severe. 90 Tab 0 0 Active clobetasol propionate (TEMOVATE) 0.05 % creamIndications:Va sculitis (HCC) apply to rash on the legs and arm twice daily x 1-2 weeks. 30 g 5 9 12/11/19 20 Discontinued Hospital, Clinic, or Other Facility Administered Medication Ordered Dose Route Frequency Start Date End Date Status levalbuterol (XOPENEX) inhalation solution 0.63 mgIndications:Whee zing 0.63 mg NEBULIZER Q4H PRN 09/12/2019 Active levalbuterol (XOPENEX) inhalation solution 1.25 mgIndications:AVENDAÑO (dyspnea on exertion),Wheezing 1.25 mg NEBULIZER Q4H PRN 09/13/2019 12/11/2019 Discon tinued documented as of this encounter (statuses as [...] 10/14/2014 Overview: ICD-10 update of inactive term [place] filter in place 08/19/2014 History of pulmonary [...] Reading Time Taken Comments Blood Pressure 130/60 12/11/2019 4:27 PM EDT Pulse 76 12/11/2019 4:27 PM EDT Temperature 36.9 C (98.4 F) 12/11/2019 4:27 PM ED T Respiratory Rate 18 12/11/2019 4:27 PM EDT Oxygen Saturation 98% 12/11/2019 4:27 PM EDT RA Inhaled Oxygen Concentration - - Weight - - Height - - Body Mass Index - - documented in this encounter Progress Notes * Brooke Jose, RN - 12/11/2019 3:43 PM EDT [facility] Template Worker Monthly Visit Date: 12/11/2019 Time: 3:44 PM Name: Stephanie Camp : 1955 States was in ER last week x2: fall, abdominal pain Current Concerns: return visit States fell last week b/c L knee gave out, unable to get self up, called 911, did not have walker with her. Has since gotten rollater with seat, brakes Abdominal pain was r/t UTI Continues to have bladder pain Checking bsg ac, hs, running 90's to low 100's Likes having the insulin pump and feels she has better control over her bsgs with pump Does not weigh daily b/c it causes frustration at time when she is working to loose wt-weighing weekly States takes extra lasix if shoes feel tight Physical Exam: BP 130/60 | Pulse 76 | Temp 98.4 | Resp 18 | SaO2 98[RA[% | LMP 03/11/2003 Pain 5-abdominal pain d/t bladder spasms, 10 L knee-chronic Physical Exam Constitutional: Appearance: She is [...] is soft. Tenderness: There is abdominal tenderness (d/t uti). Musculoskeletal: General: Tenderness (L knee) present. Right [...] and wheezing. Cardiovascular: Positive for leg swelling (trace b/l le pitting). Gastrointestinal: Negative. Genitourinary: Negative. Musculoskeletal: Positive for arthralgias and gait problem. Allergic/Immunologic: Negative. Hematological: Negative. Psychiatric/Behavioral: Negative. Medication Reconciliation: (See medication list) Does patient take medications as ordered: Yes Patient Well Being: PHQ2/9: @[id number]@ Continues to work on wt loss along with her neighbor, declined [employer] support Ambulates in hallway or outside daily Depression at times d/t pain and limited mobility but is making positive strides to improve physical situation which will improve mental health Advanced Care Planning: Healthcare POA.-Galdino Camp [phone] Patient's Goals of Care: 1. Wt loss 2. No falls 3. L TKR 4. Keep lowering A1C Treatment/Plan: Meds as ordered/reviewed Ambulate with roller walker at ALL times o2 2lnc continuously cpap with 2l qhs Apap, tramadol and topical pain relievers for L knee pain Low na, ccd diet Recommended Azo for bladder spasms, daily probiotic d/t abx use and immune support and vitamin C 250mg bid with meals to aide in prevention of uti Last day for abx is next Tuesday Treatment(s) Given: Evaluation Patient's 'Red Flags': 1. Fall with injury 2. Increased edema 3. Fever 4. Cough 5. Yellow/green sputum Patient Needs to Remember: Call [facility] for red flags and prior [...] emergent issues. Is the patient new to [facility] within the last 30 days? No, Assess appropriateness for upcoming telehealth visits. Cancel telehealth visits & schedule home visit with care food service team member(s)as indicated. Plan of care communicated to Provider: Yes Scheduled to follow up with patient in 3 weeks with LES. Brooke Jose RN 12/11/2019 3:44 PM documented in this encounter Plan of Treatment Upcoming Encounters Date Type Specialty Care Team Description 12/14/2019 Home Visit Family Medicine Mira Duong, [facility] [address] [place] [address] [phone] 12/19/2019 Office Visit Nephrology Gia White MD [address] [place], [place] [id number] 01/02/2020 Office Visit [facility] [facility] [place] [address] 02/04/2020 Office Visit Dermatology Apple Kaminski MD [address] [facility] [place] [address] [phone] 02/07/2020 Office Visit Orthopedics Zack Teague, [address] [facility] [place] [address] 02/26/2020 Office Visit Cardiology Rey Woodall MD 132 [facility] [place] [address] 05/08/2020 Office Visit Family Medicine Kevin Whiteside, 132 [facility] [place] [id number] 11/27/2020 Office Visit Pulmonary [facility] [place] [address] Health Maintenance Due Date Last Done Comments Zoster Vaccines (3 of 3) 01/02/2020 11/07/2019, 11/24 Yearly B-12 03/14/2020 03/14/2019, 05/16/2018 DIABETES-EYE EXAM 04/05/2020 04/05/2019, (Done elsewhere), 12/18/2009, Additional history exists DIABETES-HGBA1C EVERY 6 MONTHS 05/07/2020 11/07/2019, 08/09/2019, 03/14/2019, Additional history exists DIABETES-URINE MICROALBUMIN EVERY 12 MONTHS 05/24/2020 05/24/2019, 02/26/2019, 12/23/2018, Additional history exists CKD GFR USE SMARTSET 64080 06/06/202012/04, 11/07/2019, 09/10/2019, Additional history exists BREAST CANCER SCREENING DISCUSSION YEARLY AGES 40-75 07/10/2020 07/10/2019, 06/23/2018, 05/09/2015, Additional history exists CKD HGB USE SMARTSET 44295 09/10/202009/10, 07/20/2019, 02/26/2019, Additional history exists CKD PHOS USE SMARTSET 15122 11/07/202010/27, 12/29/2017, 08/26/2009, Additional history exists DIABETES-FOOT [...] Documents on File Type Date Recorded Patient Software Applications Designer Expl 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
--- OUTSIDE RECORDS SUMMARY | 2023-06-01 05:31 | External Medical Summary | Summary of Care ---
Author Name Unknown Organization [place] [address] Care Team Providers Care Junior Qa Analyst Name Role Phone Kevin Whiteside DO Primary Care Provider Reason for Visit * Reason Comments No Show Encounter Details Date Type Department Care Team Description 12/07/2019 Home Visit [facility], [facility] 132 [facility] [place] [address] [facility] 132 [facility] [place] [address] [phone] Benign hypertensive heart and kidney disease with diastolic CHF, NYHA class 1 and CKD stage 3 ([facility]) Allergies Active Allergy Reactions Severity [...] 08/09/2019 Active Vitamin D, Ergocalciferol, 1.25 MG (32220 UT) CapsuleIndications:V itamin D deficiency Take 1 [...] with long-term current use of insulin (HCC) Inject 1.5 mg under the skin once [...] days. 20 Cap 0 12/06/2019 0 Active Hospital, Clinic, or Other Facility [...] 10/14/2014 Overview: ICD-10 update of inactive term [place] filter in place 08/19/2014 History of pulmonary [...] as of this encounter Progress Notes * Saira Salmon Community Health Assistant - 12/07/2019 3:21 PM EDT Multiple calls to patient before appt time and no answer upon arrival. Not sure of the reason for the acute visit vital signs. Pt scheduled with PCP on Tuesday and RNCM onT. documented in this encounter Plan of Treatment Upcoming Encounters Date Type Specialty Care Team Description 12/10/2019 Office Visit Family Medicine Kevin Whiteside DO [address] [place] [address] [phone] 12/11/2019 [facility] Visit [facility] [place] Brooke Jose RN [address] [place] [address] [phone] 12/19/2019 Office Visit Nephrology Gia White MD [address] [place] [address] [phone] 01/02/2020 Office Visit Pharmacy [facility] Jer[place] [address] [place] [address] 02/04/2020 Office Visit Dermatology Apple Kaminski MD [address] [facility] [place] [address] [phone] 02/07/2020 Office Visit Orthopedics Zack Teague, DO [address] [place] [address] [phone] 02/26/2020 Office Visit Cardiology Rey Woodall MD [address] [place] [address] 05/08/2020 Office Visit Family Medicine [...] Additional history exists CKD GFR USE SMARTSET 75377 06/06/202012/04, 11/07/2019, 09/10/2019, Additional history exists BREAST CANCER SCREENING DISCUSSION YEARLY AGES 40-75 07/10/2020 07/10/2019, 06/23/2018, 05/09/2015, Additional history exists CKD HGB USE SMARTSET 00608 09/10/202009/10, 07/20/2019, 02/26/2019, Additional history exists CKD PHOS USE SMARTSET 99538 11/07/202010/27, 12/29/2017, 08/26/2009, Additional history exists DIABETES-FOOT [...] Recorded Patient Track Service Person Expl 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
--- OUTSIDE RECORDS SUMMARY | 2023-06-01 05:31 | External Medical Summary | Summary of Care ---
Author Name Unknown Organization [place] [address] Care Team Providers Care Pet Resort Concierge Name Role Phone Kevin Whiteside DO Primary Care Provider Reason for Visit * Reason Comments Medication Pre-auth traMADol (ULTRAM) 50 MG Tablet Encounter Details Date Type Department Care Team Description 12/10/2019 Telephone Family Practice [facility] [address] [place] [address] Kevin Whiteside DO [address] [facility] [place] [address] Medication Pre-auth (traMADol (ULTRAM) [...] 08/09/2019 Active Vitamin D, Ergocalciferol, 1.25 MG (28992 UT) CapsuleIndications:V itamin D deficiency Take 1 [...] Miscellaneous Notes * Telephone Encounter - Kriss Bishop PHARM Tech - 12/11/2019 1:23 PM EDT Ramiro from [facility] pharmacy calling to advise pt's traMADol (ULTRAM) 50 MG Tablet needs prior auth. Advised office is working on this. Thank you, Kriss Bishop Pipe Organ Builder [facility] 12/11/2019, 1:23 PM * Telephone Encounter - Izabela Crump LPN - 12/10/2019 1:53 PM EDT Faxed today's OV note to number below. * Telephone Encounter - Mindy Ibarra PHARM Tech - 12/10/2019 12:51 PM EDT [facility] is calling to advise [facility] sent a prior auth for pt's traMADol (ULTRAM) 50 MG Tablet they will need further info faxed to [phone] for consideration. Thanks, Mindy Ibarra Pipe Organ Builder Pharmacy Refill Call Center 12/10/2019,12:51 PM documented in this encounter Plan of Treatment Upcoming Encounters Date Type Specialty Care Team Description 12/11/2019 [facility] Visit [facility] Brooke Jose RN [address] [facility] [place] [address] [phone] 12/19/2019 Office Visit Nephrology Gia White MD 21 [facility] [place] [phone] 01/02/2020 Office Visit Pharmacy [facility] [place] [address] [place] [address] 02/04/2020 Office Visit Dermatology Apple Kaminski MD 200 [place] [address] [phone] 02/07/2020 Office Visit Orthopedics Zack Teague, [address] [place] [address] [phone] 02/26/2020 Office Visit Cardiology Rey Woodall MD [address] [place] [address] 05/08/2020 Office Visit Family Medicine Kevin Whiteside, [address] [place] [address] [phone] 11/27/2020 Office Visit Pulmonary Celsa Tafoya CRNP [address] [place] [id number] Health Maintenance Due Date Last Done Comments Zoster Vaccines (3 of 3) 01/02/2020 11/07/2019, 11/24 Yearly B-12 03/14/2020 03/14/2019, 05/16/2018 DIABETES-EYE EXAM 04/05/2020 04/05/2019, (Done elsewhere), 12/18/2009, Additional history exists DIABETES-HGBA1C EVERY 6 MONTHS 05/07/2020 11/07/2019, 08/09/2019, 03/14/2019, Additional history exists DIABETES-URINE MICROALBUMIN EVERY 12 MONTHS 05/24/2020 05/24/2019, 02/26/2019, 12/23/2018, Additional history exists CKD GFR USE SMARTSET 00631 06/06/202012/04, 11/07/2019, 09/10/2019, Additional history exists BREAST CANCER SCREENING DISCUSSION YEARLY AGES 40-75 07/10/2020 07/10/2019, 06/23/2018, 05/09/2015, Additional history exists CKD HGB USE SMARTSET 61384 09/10/202009/10, 07/20/2019, 02/26/2019, Additional history exists CKD PHOS USE SMARTSET 03388 11/07/202010/27, 12/29/2017, 08/26/2009, Additional history exists DIABETES-FOOT [...] Documents on File Type Date Recorded Patient Bridge Maintenance Worker Expl 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
--- OUTSIDE RECORDS SUMMARY | 2023-06-01 05:32 | External Medical Summary | Summary of Care ---
Author Name Unknown Organization [place] [address] Care Team Providers Care Rotary Drill Rig Operator Name Role Phone Stevo Kevin Ocampomelinda Primary Care Provider Reason for Visit * Reason Comments Test Results Encounter Details Date Type Department Care Team Description 12/06/2019 Telephone Family Practice [facility] [address] [employer] [place] [address] Angi Barr PA-C [address] [employer] [facility] [place] [address] Test Results Allergies Active Allergy Reactions Severity Noted Date Comments Pollen 05/18/2019 Heparin 09/04/2009 Heparin Induced Thrombocytopenia Empagliflozin Other (Please comment) Medium 05/17/2018 3 yeast infections in 6 weeks after starting Morphine And Related 09/16/1997 Hallucinations Tetanus Toxoid Other (Please comment) 06/15/2011 Passed out documented as of this encounter (statuses as of 12/06/2019) Medications Medication Sig Dispensed Refills Start Date [...] 3 08/30/2018 Active Blood Glucose Monitoring Suppl (Black Chair GroupTOUCH ULTRA 2) w/Device KIT Use to [...] 08/09/2019 Active Vitamin D, Ergocalciferol, 1.25 MG (60835 UT) CapsuleIndications:V itamin D deficiency Take 1 [...] as of this encounter (statuses as of 12/06/2019) Active Problems Problem Noted Date Primary osteoarthritis [...] 10/14/2014 Overview: ICD-10 update of inactive term [place] filter in place 08/19/2014 History of [...] as of this encounter (statuses as of 12/06/2019) Resolved Problems Problem Noted Date Resolved Date [...] as of this encounter (statuses as of 12/06/2019) Immunizations Name Administration Dates Next Due Pneumococcal [...] Telephone Encounter - Hortencia Aguirre LPN - 12/06/2019 4:45 PM EDT Information given to pt who verbalizes understanding and will comply for repeat urine after Rx. * Telephone Encounter - Angi Barr PA-C - 12/06/2019 4:20 PM EDT Please call pt and inform that the preliminary results of the urine testing is showing bacteria, weshould start an antibiotic, I sent in keflex 250 mg twice daily for 10 days to [facility] pharmacy (on [address]) and we should recheck the urine after she finishes treatment to ensure complete resolution. Urine culture futured for her to complete as noted above. documented in this encounter Plan of Treatment Upcoming Encounters Date Type Specialty Care Team Description 12/07/2019 Home Visit [facility] Saira Salmon, [facility] News Correspondent [address] [place] [address] [phone] 12/10/2019 Office Visit Family Medicine Kevin Whiteside DO [address] [place] [address] [phone] 12/11/2019 [facility] Brooke Jose RN 132 [facility] [place] [address] [phone] 12/19/2019 Office Visit Nephrology Gia White MD [address] [place] [address] [phone] 01/02/2020 Office Visit Pharmacy [facility] [place] 132 [facility] [place] [address] 02/04/2020 Office Visit Dermatology Apple Kaminski MD 200 [facility] [place] [address] [phone] 02/07/2020 Office Visit Orthopedics Zack Teague, 132 [facility] [place] [address] 02/26/2020 Office Visit Cardiology Rey Woodall MD 132 [facility] [place] [address] [phone] 05/08/2020 Office Visit Family Medicine Kevin Whiteside, 132 [facility] [place] [address] [phone] 11/27/2020 Office Visit Pulmonary Celsa Tafoya CRNP 132 [facility] [place] [id number] Scheduled Orders Name Type Priority Associated Diagnoses Orde r Schedule CULTURE QUANT URINE Lab Routine Acute cystitis without hematuria Expected: 12/13/2019 (Approximate), Expires: 03/07/2020 Health Maintenance Due Date Last Done Comments Zoster Vaccines (3 of 3) 01/02/2020 11/07/2019, 11/24 Yearly B-12 03/14/2020 03/14/2019, 05/16/2018 DIABETES-EYE EXAM 04/05/2020 04/05/2019, (Done elsewhere), 12/18/2009, Additional history exists DIABETES-HGBA1C EVERY 6 MONTHS 05/07/2020 11/07/2019, 08/09/2019, 03/14/2019, Additional history exists DIABETES-URINE MICROALBUMIN EVERY 12 MONTHS 05/24/2020 05/24/2019, 02/26/2019, 12/23/2018, Additional history exists CKD GFR USE SMARTSET 24533 06/06/202012/04, 11/07/2019, 09/10/2019, Additional history exists BREAST CANCER SCREENING DISCUSSION YEARLY AGES 40-75 07/10/2020 07/10/2019, 06/23/2018, 05/09/2015, Additional history exists CKD HGB USE SMARTSET 77122 09/10/202009/10, 07/20/2019, 02/26/2019, Additional history exists CKD PHOS USE SMARTSET 23508 11/07/202010/27, 12/29/2017, 08/26/2009, Additional history exists DIABETES-FOOT [...] of this encounter Visit Diagnoses Diagnosis Acute cystitis without hematuria- Primary Acute cystitis documented in this encounter Advance Directives Documents on File Type Date Recorded Patient Ob/Gyn Physician Expl 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
--- OUTSIDE RECORDS SUMMARY | 2023-06-01 05:32 | External Medical Summary | Summary of Care ---
Author Name Unknown Organization [place] [address] Care Team Providers Care Maintenance Manager Name Role Phone Kevin Whiteside DO Primary Care Provider Reason for Referral * Evaluate & Treat - Unlimited Visits (Within 3 days (urgent)) Status Reason Specialty Diagnoses / Procedures Referred By Contact Referred To Contact Authorized Specialty Services Required Nephrology Diagnoses Chronic kidney disease, unspecified CKD stage Angi Barr PA-C [address] [place] [address] Encounter Details Date Type Department Care Team Description 12/05/2019 Telephone Family Practice [facility] [address] [place] [address] Angi [facility]-C [facility] [place] [address] [phone] Allergies Active Allergy Reactions Severity Noted Date [...] 3 08/30/2018 Active Blood Glucose Monitoring Suppl (kiwi666TOUCH ULTRA 2) w/Device KIT Use to test [...] 08/09/2019 Active Vitamin D, Ergocalciferol, 1.25 MG (97665 UT) CapsuleIndications:V itamin D deficiency Take 1 [...] encounter Miscellaneous Notes * Telephone Encounter - Bharati Jorge OSA - 12/06/2019 1:16 PM EDT Pt last saw José Miguelsindy. Referral is an urgent one. Nothing available [...] Encounters Date Type Specialty Care Team Description 12/06/2019 [facility] Visit [facility] Jose, RN [address] [place] [address] [phone] 12/10/2019 Office Visit Family Medicine Kevin Whiteside DO [address] [place] [address] [phone] 01/02/2020 Office Visit Pharmacy [facility] [address] [place] [phone] 02/04/2020 Office Visit Dermatology Apple Kaminski MD [address] [place] [address] [phone] 02/07/2020 Office Visit Orthopedics Zack Teague, [address] [facility] [place] [address] [phone] 02/26/2020 Office Visit Cardiology Rey Woodall MD [address] [place] [address] 05/08/2020 Office Visit Family Medicine Kevin Whiteside, [address] [place] [address] 11/27/2020 Office Visit Pulmonary Celsa Tafoya CRNP [address] [facility] [place] [address] Scheduled Referrals Name Type Priority Associated Diagnoses [...] Additional history exists CKD GFR USE SMARTSET 98854 06/06/202012/04, 11/07/2019, 09/10/2019, Additional history exists BREAST CANCER SCREENING DISCUSSION YEARLY AGES 40-75 07/10/2020 07/10/2019, 06/23/2018, 05/09/2015, Additional history exists CKD HGB USE SMARTSET 61919 09/10/202009/10, 07/20/2019, 02/26/2019, Additional history exists CKD PHOS USE SMARTSET 72472 11/07/202010/27, 12/29/2017, 08/26/2009, Additional history exists DIABETES-FOOT [...] Documents on File Type Date Recorded Patient Shower Attendant Expl 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
--- OUTSIDE RECORDS SUMMARY | 2023-06-01 05:32 | External Medical Summary | Summary of Care ---
Author Name Unknown Organization [place] [address] Care Team Providers Care Crossword Puzzle Maker Name Role Phone Kevin Whiteside DO Primary Care Provider Reason for Visit * Reason Comments Emergency Department Follow-Up Encounter Details Date Type Department Care Team Description 12/05/2019 Office Visit [facility] [address] [place] [place] [address] Angi Barr PA-C [address] [facility] [place] [address] Lower abdominal pain*; Dehydration; Kidney disease, chronic, stage III (GFR 30-59 ml/min) ([facility]); ELSIE (acute kidney injury) ([facility]) Allergies Active Allergy Reactions [...] 08/09/2019 Active Vitamin D, Ergocalciferol, 1.25 MG (65930 UT) CapsuleIndications:V itamin D deficiency Take 1 [...] Sign Reading Time Taken Comments Blood Pressure 122/62 12/05/2019 9:24 AM EDT Pulse 82 12/05/2019 9:24 AM EDT Temperature 36.3 C (97.4 F) 12/05/2019 9:24 AM ED T Respiratory Rate 16 12/05/2019 9:24 AM EDT Oxygen Saturation - - Inhaled Oxygen Concentration - - Weight 141.1 kg (311 lb) 12/05/2019 9:24 AM EDT Height - - Body Mass Index 53.38 11/30/2019 9:05 AM EST documented in this encounter Patient Instructions * Patient Instructions* Angi Barr PA-C - 12/05/2019 9:50 AM EDT Will check urine for infection and have ordered blood work for you to get done. We will contact youwith results. Encouraged plenty of water Advised to use miralax twice daily for next few days until having more successful bowel movements. documented in this encounter Progress Notes * Angi Barr PA-C - 12/05/2019 9:31 AM EDT Stephanie Camp is a 64 year old year old female who presents for : Chief Complaint Patient presents with Emergency Department Follow-Up Nursing Notes: Linda Dexter LPN 12/05/19 0926 Signed Pt here for ER f/u apts was seen 2 times recently for fall and second was for ABD pains. Has the pain in abd and has it off and on, has dull and sharp pains, and bowels still causing issues. HPI: Pt seen at [facility] ER on 11/30/19 for abd pain and 11/27/19 for a fall. Seen first for the fall, her bad knee gave out and she couldn't get up, had knee xray which was noted okay. No report for me to reviewon this. She's been having more pain and going to move her ortho appt up. Using a seated wheeling walker at this time. Then had abd pain. She does have a hx of diverticulitis. She was having off and on pain for 2 weeksacross lower abdomen, then it worsened, she went to the [facility] given her presentation and was sent to ER on 11/30/19. CT of abd pelvis without acute finding. Labs showed some decreased kidney functions they related to dehydration and was given IV fluids and pain medication. Told to use miralax and have outpt follow up, recheck kidney functions. Now pain is at the right lower abd, can be both sides. Bowels not moving right she notes. Typicallyhaving daily BM but not a large amount, she's had decreased appetite. No black or bloody stools. Nodiarrhea. Denies hard stools. No vomiting. She's drinking some fluids. Not feeling like she is going much. No dysuria, hematuria. REVIEW OF SYSTEMS: See HPI for pertinent positives and negatives. Patient denies addtional complaints. PAST MEDICAL HISTORY: Past Medical History: Diagnosis Date ELSIE (acute kidney injury) (HCC) 06/12/2018 Allergic rhinitis due to other allergen Backache Diverticulosis of colon 01/28/06 DM type 2, not at goal ([facility]) ELLIE (generalized anxiety disorder) 09/13/2009 Goiter [place] filter in place 08/19/2014 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HCC) 08/22/2009 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HCC) 06/12/2018 History of pulmonary embolus (PE) 07/16/2014 HTN, goal below 140/90 Impetigo 09/27/2018 Obesity, BMI not known Perforation of intestine (HCC) 1996 COLON -- 1996 Pneumonia in aspergillosis(484.6) 09/14/2009 Spontaneous pneumothorax 09/14/2009 Statin intolerance 07/16/2014 Type 2 diabetes mellitus with hemoglobin A1c goal of 7.0%-8.0% ([facility]) 10/14/2014 ICD-10 update of inactive term Vaginal karmen 07/13/2018 Past Surgical History: Procedure Laterality Date ARTHROPLASTY KNEE TOTAL Right 07/24/14 R COLONOSCOPY, DIAGNOSTIC (RECTUM) 02/18/2016 normal, repeat 10 yrs/[facility] COLONOSCOPY, GI REFERRAL OP 01/28/06 diverticulosis--repeat 10 years INCISION OF WINDPIPE, PLANNED 06/03/2011 TRACHEOSTOMY PLANNED performed by DANNY HOLDER at [facility] KNEE ARTHROSCOPY/DEBRIDEMENT 07/[address] PERMANENT GASTROSTOMY TUBE 09/06/09 GASTROSTOMY WITH CONSTUCTION GASTRIC TUBE performed by AMADOU NUNEZ at [facility] REMOVAL OF THYROID GLAND 06/15/2011 THYROIDECTOMY INCLUDING SUBSTERNAL THYROID CERVICAL APPROACH performed by DANNY HOLDER at [facility] REMOVE GALLBLADDER 09/06/09 CHOLECYSTECTOMY performed by AMADOU NUNEZ at [facility] REPAIR RECURRENT INCISIONAL HERNIA 1998 REVISION OF COLOSTOMY, SIMPLE 1998 SUTURE, LARGE INTESTINE W/COLOSTOMY 1996 perforation R colon with colostomy VENA CAVA FILTER/LIGATION/CLIP 08/19/09 Frank filter placement through the right femoral 08/19/[address] Lerma at [facility] Social History Tobacco Use Smoking status: Former Smoker Packs/day: 1.00 Years: 15.00 Pack years: 15.00 Last attempt to quit: 08/26/1997 Years since quittin.2 Smokeless tobacco: Never Used Substance Use Topics [...] pulmonary embolus (PE) Z86.711 Statin intolerance Z78.[address] Z95.828 Type 2 diabetes mellitus with hemoglobin A1c goal of 7.0%-8.0% (HCC) E11.9 Fibromyalgia M79.7 Abnormality of gait R26.9 Restless legs syndrome G25.81 Gastroesophageal reflux disease with esophagitis K21.0 Uncontrolled type 2 diabetes mellitus with stage 3 chronic kidney disease, with long-term current use of insulin ([facility]) E11.22, E11.65, N18.3, Z79.4 Body mass index (BMI) of 50.0 to 59.9 in adult ([facility]) Z68.43 Controlled substance agreement signed Z79.899 Chronic diastolic congestive heart failure ([facility]) I50.32 Thoracic back pain M54.6 Mild episode of recurrent major depressive disorder ([facility]) F33.0 Lumbar radiculopathy M54.16 Benign hypertensive heart and kidney disease with diastolic CHF, NYHA class 1 and CKD stage 3 ([facility]) I13.0, I50.30, N18.3 Chronic respiratory failure with hypoxia ([facility]) J96.11 Hyperparathyroidism, secondary renal ([facility]) N25.81 Vasculitis ([facility]) I77.6 Primary osteoarthritis of left knee M17.12 Family History Problem Relation Age of Onset [...] Medication Sig Dispense Refill oxygen GAS 2 LPM bled through CPAP [...] by mouth at bedtime. 90 Cap 2 traMADol (ULTRAM) 50 MG Tablet Take 1 Tab by mouth every 8 hours as needed for Pain, Severe. 90Tab 0 gabapentin (NEURONTIN) 300 MG Capsule Take 1 Cap by mouth 3 times a day. 270 Cap 5 DULoxetine (CYMBALTA) 60 MG CPEP Take 1 Cap by mouth daily. Along with 30 mg capsule to total 90 mg daily. 90 Cap 4 insulin aspart (INSULIN ASPART) 100 UNIT/ML injection USE IN INSULIN PUMP UP TO 200 UNITS PER DAY 30 mL 7 clobetasol propionate (TEMOVATE) 0.05 % cream apply to rash on the legs and arm twice daily x 1-2 weeks. 30 g 5 levothyroxine (LEVOXYL) 200 MCG Tablet TAKE ONE TABLET BY MOUTH EVERY DAY AT LEAST 30 MINUTES BEFORE BREAKFAST OR OTHER MEDS 90 Tab 4 levothyroxine (LEVOXYL) 25 MCG Tablet TAKE ONE TABLET BY MOUTH IN THE MORNING AT LEAST 30 MINUTES PRIOR TO BREAKFAST OR OTHER MEDS 90 Tab 1 Vitamin D, Ergocalciferol, 1.25 MG (06874 UT) Capsule Take 1 Cap by mouth [...] sugars 3-4 times daily 400 Strip 2 rOPINIRole (REQUIP) 2 MG Tablet Take 1 Tab by mouth at bedtime. 90 Tab 3 Insulin Pen Needle (BD PEN NEEDLE SHORT U/F) 31G X 8 MM Use 5 times daily with insulin 200 Box Dosing Unit 11 metoprolol tartrate (LOPRESSOR) 25 MG Tablet Take 0.5 Tabs by mouth 2 times a day. 90 Tab 3 Blood Glucose Monitoring Suppl (ONETOUCH ULTRA 2) w/Device KIT Use to test BG values 1 Kit 0 ACCU-CHEK SOFTCLIX LANCETS MISC Test sugar 3-4 times a day. Ok to substitute Fastclix lancets, if needed. 400 Box Dosing Unit 3 Glucose Blood (ACCU-CHEK HARRIS PLUS) STRP Test sugar 3-4 times a day. 400 Strip 3 ONETOUCH DELICA LANCETS 33G MISC Check blood sugars 3-4 times daily 180 Each 5 docusate sodium (STOOL SOFTENER) 100 MG Capsule Take 100 mg by mouth 2 times a day as needed for Constipation. PRILOSEC 20 MG PO CPDR one tablet daily traZODone (DESYREL) 50 MG Tablet Take 1 Tab by mouth at bedtime. 30 Tab 5 clobetasol propionate (TEMOVATE) 0.05 % ointment Apply topically to affected area 2 times a day. Toaffected area for up to two weeks. 60 g 1 cyclobenzaprine (FLEXERIL) 10 MG Tablet TAKE ONE TABLET BY MOUTH AT BEDTIME NEEDED FOR MUSCLE SPASM 90 Tab 2 Nursing Notes and Vital Signs reviewed. PHYSICAL EXAM: VITALS: BP 122/62 | Pulse 82 | Temp (Src) 97.4 (Tympanic) | Resp 16 | Wt 311 lbs (141.069kg) | BMI 53.38 kg/m | BSA 2.52 m | LMP 03/11/2003 GENERAL: Patient is alert, no acute distress. She has mildly fatigued appearance. Cooperative. Ambulating with a wheeled walker with a seat. HEAD: Normocephalic, no masses, lesions, or other abnormalities noted. EYE EXAM: Normal conjunctiva, PERRL and EOM's intact. OROPHARYNX: lips, tongue and throat normal. No erythema or exudates. NECK: Supple, good ROM, trachea midline. No adenopathy noted Chest: normal chest symmetry and expansion, normal AP diameter. LUNGS: Normal respiratory rate and normal respiratory effort. No wheeze, rhonchi or rales HEART: RRR, no murmurs ABDOMEN: Obese, soft. Some mild generalized TTP across upper and lower abdomen. BS x 4. SKIN: Normal, no rashes and no bruising. Results for orders placed or performed in visit on 12/05/19 SITE DIP AUTO([id number]) Result Value Ref Range COLOR, UA yellow yellow - clive CLARITY, UA cloudy (A) clear - clear GLUCOSE, UA neg neg - neg BILIRUBIN, UA neg neg - neg KETONE, UA neg neg - neg SPECIFIC GRAVITY 1.025 1.003 - 1.030 BLOOD, UA trace (A) neg - neg PH, UA 5.5 5.0 - 7.5 PROTEIN, UA neg neg - neg UROBILINOGEN, UA neg normal - normal NITRITE, UA net neg - neg ESTERASE, UA trace (A) neg - neg *Note: Due to a large number of results and/or encounters for the requested time period, some results have not been displayed. A complete set of results can be found in Results Review. Assessment: Lower abdominal pain (Primary) - SITE DIP AUTO([id number]) - BASIC METAB PANEL, BMP; Future; Expected date: 12/05/2019 - CULTURE QUANT URINE; Future; Expected date: 12/05/2019 Dehydration - BASIC METAB PANEL, BMP; Future; Expected date: 12/05/2019 Kidney disease, chronic, stage III (GFR 30-59 ml/min) ([facility]) Prior dx. Recheck labs. ELSIE (acute kidney injury) ([facility]) Per ER, recheck BMP. CKD with progression over the last 5 months Will send urine for culture.advised hydration and will repeat labs to check on kidney function. Encouraged increased miralax as before to assist with BMs. ER report from 11/30/[address] neg for acute finding. Angi Barr PA-C [facility] [address] [place] [address] documented in this encounter Nursing Notes * Linda Dexter LPN - 12/05/2019 9:18 AM EDT Pt here for ER f/u apts was seen 2 times recently for fall and second was for ABD pains. Has the pain in abd and has it off and on, has dull and sharp pains, and bowels still causing issues. documented in this encounter Plan of Treatment Upcoming Encounters Date Type Specialty Care Team Description 12/06/2019 [facility] Visit [facility] Jose, RN [address] [place] [address] [phone] 12/10/2019 Office Visit Family Medicine Kevin Whiteside, DO [address] [place] [address] [phone] 01/02/2020 Office Visit Pharmacy [facility] [address] [place] [address] 02/04/2020 Office Visit Dermatology Apple Kaminski MD [address] [place] [address] [phone] 02/07/2020 Office Visit Orthopedics Zack Teague, DO [address] [place] [address] 02/26/2020 Office Visit Cardiology Rey Woodall MD [address] [place] [address] [phone] 05/08/2020 Office Visit Family Medicine Kevin Whiteside, [address] [place] [address] [phone] 11/27/2020 Office Visit Pulmonary Celsa Tafoya CRNP [address] [place] [address] [phone] Pending Results Name Type Priority Associated Diagnoses Date /Time CULTURE QUANT URINE Lab Routine Lower abdominal pain 12/05/2019 10:00 AM EDT Scheduled Orders Name Type Priority Associated Diagnoses Orde r Schedule CULTURE QUANT URINE Lab Routine Lower abdominal pain Expected: 12/05/2019 (Approximate), Expires: 03/06/2020 Health Maintenance Due Date Last Done Comments Zoster Vaccines (3 of 3) 01/02/2020 11/07/2019, 11/24 Yearly B-12 03/14/2020 03/14/2019, 05/16/2018 DIABETES-EYE EXAM 04/05/2020 04/05/2019, (Done elsewhere), 12/18/2009, Additional history exists DIABETES-HGBA1C EVERY 6 MONTHS 05/07/2020 11/07/2019, 08/09/2019, 03/14/2019, Additional history exists DIABETES-URINE MICROALBUMIN EVERY 12 MONTHS 05/24/2020 05/24/2019, 02/26/2019, 12/23/2018, Additional history exists CKD GFR USE SMARTSET 80892 06/06/202012/04, 11/07/2019, 09/10/2019, Additional history exists BREAST CANCER SCREENING DISCUSSION YEARLY AGES 40-75 07/10/2020 07/10/2019, 06/23/2018, 05/09/2015, Additional history exists CKD HGB USE SMARTSET 89231 09/10/202009/10, 07/20/2019, 02/26/2019, Additional history exists CKD PHOS USE SMARTSET 27029 11/07/202010/27, 12/29/2017, 08/26/2009, Additional history exists DIABETES-FOOT [...] Priority Date/Time Associated Diagnosis Comments SITE DIP AUTO([id number]) Routine 12/05/2019 Lower abdominal pain documented in this encounter Results * BASIC METAB PANEL, BMP (12/05/2019 10:03 AM EDT) BUN 49(H) 6 - 20 mg/dL [facility] CREATININE 2.6(H) 0.5 - 1.0 mg/dL [facility] E GLOM FILT RATE 18.7(L)Comment:If patient is , multiply estimated GFR by 1.159. >60 [facility] SODIUM 139 135 - 146 mmol/L [facility] POTASSIUM 4.5 3.5 - 5.1 mmol/L [facility] CHLORIDE 98 98 - 107 mmol/L [facility] CO2 23 22 - 32 mmol/L [facility] ANION GAP 18(H) 7 - 15 mmol/L [facility] GLUCOSE 134(H) 70 - 120 mg/dL [facility] CALCIUM 10.1 8.4 - 10.2 mg/dL [facility] Specimen Performing Organization Address City/State/Zipcod e Phone Number [facility] [address] [place] [address] * SITE DIP AUTO([id number]) (12/05/2019) COLOR, UA yellow yellow - clive CLARITY, UA cloudy(A) clear - clear GLUCOSE, UA neg neg - neg BILIRUBIN, UA neg neg - neg KETONE, UA neg neg - neg SPECIFIC GRAVITY 1.025 1.003 - 1.030 BLOOD, UA trace(A) neg - neg PH, UA 5.5 5.0 - 7.5 PROTEIN, UA neg neg - neg UROBILINOGEN, UA neg normal - normal NITRITE, UA net neg - neg ESTERASE, UA trace(A) neg - neg Specimen Urine documented in this encounter Visit Diagnoses Diagnosis Lower abdominal pain- Primary Abdominal pain, other specified site Dehydration Kidney disease, chronic, stage III (GFR 30-59 ml/min) (HCC) Chronic kidney disease, Stage III (moderate) ELSIE (acute kidney injury) (HCC) Acute kidney failure, unspecified documented in this encounter Advance Directives Documents on File Type Date Recorded Patient Cost Control Specialist Expl 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
--- OUTSIDE RECORDS SUMMARY | 2023-06-01 05:32 | External Medical Summary | Summary of Care ---
Author Name Unknown Organization [place] [address] Care Team Providers Care Refrigeration Installer Name Role Phone Kevin Whiteside DO Primary Care Provider Reason for Referral * Evaluate & Treat - Unlimited Visits (Within 3 days (urgent)) Status Reason Specialty Diagnoses / Procedures Referred By Contact Referred To Contact Authorized Specialty Services Required Nephrology Diagnoses Chronic kidney disease, unspecified CKD stage Angi Barr PA-C [address] [place] [address] Encounter Details Date Type Department Care Team Description 12/05/2019 Telephone Family Practice [facility] [address] [place] [address] Angi Barr PA-C [facility] [place] [address] [phone] Allergies Active Allergy Reactions Severity Noted Date [...] 3 08/30/2018 Active Blood Glucose Monitoring Suppl (EnbridgeTOUCH ULTRA 2) w/Device KIT Use to test [...] 08/09/2019 Active Vitamin D, Ergocalciferol, 1.25 MG (62391 UT) CapsuleIndications:V itamin D deficiency Take 1 [...] encounter Miscellaneous Notes * Telephone Encounter - Violet Meier LPN [...] 12/06/2019 1:16 PM EDT Pt last saw Christopher. Referral is an urgent one. Nothing available [...] Description 12/10/2019 Office Visit Family Medicine Kevin Whiteside, [address] [place] [address] [phone] 01/02/2020 Office Visit Pharmacy [facility] [place] [address] [place] [address] 02/04/2020 Office Visit Dermatology Apple Kaminski MD [address] [place] [address] [phone] 02/07/2020 Office Visit Orthopedics Zack Teague, [address] [place] [address] 02/26/2020 Office Visit Cardiology Rey Woodall MD [address] [place] [address] [phone] 05/08/2020 Office Visit Family Medicine Kevin Whiteside, [address] [place] [phone] 11/27/2020 Office Visit Pulmonary Celsa Tafoya CRNP [address] [place] [phone] Scheduled Referrals Name Type Priority Associated Diagnoses [...] Additional history exists CKD GFR USE SMARTSET 12502 06/06/202012/04, 11/07/2019, 09/10/2019, Additional history exists BREAST CANCER SCREENING DISCUSSION YEARLY AGES 40-75 07/10/2020 07/10/2019, 06/23/2018, 05/09/2015, Additional history exists CKD HGB USE SMARTSET 38464 09/10/202009/10, 07/20/2019, 02/26/2019, Additional history exists CKD PHOS USE SMARTSET 64024 11/07/202010/27, 12/29/2017, 08/26/2009, Additional history exists DIABETES-FOOT [...] Documents on File Type Date Recorded Patient Historian Dramatic Arts Expl 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
--- OUTSIDE RECORDS SUMMARY | 2023-06-01 05:32 | External Medical Summary | Summary of Care ---
Author Name Unknown Organization [place] [address] Care Team Providers Care Industrial Relations Officer Name Role Phone Kevin Whiteside DO Primary Care Provider Reason for Referral * Evaluate & Treat - Unlimited Visits (Within 3 days (urgent)) Status Reason Specialty Diagnoses / Procedures Referred By Contact Referred To Contact Authorized Specialty Services Required Nephrology Diagnoses Chronic kidney disease, unspecified CKD stage Angi Barr PA-C [address] [place] [address] Encounter Details Date Type Department Care Team Description 12/05/2019 Telephone Family Practice [facility] [address] [place] [address] Angi Barr PA-C [facility] [place] [address] [phone] Allergies Active Allergy Reactions Severity Noted Date [...] 3 08/30/2018 Active Blood Glucose Monitoring Suppl (AriagoraTOUCH ULTRA 2) w/Device KIT Use to test [...] 08/09/2019 Active Vitamin D, Ergocalciferol, 1.25 MG (22935 UT) CapsuleIndications:V itamin D deficiency Take 1 [...] Care Team Description 12/10/2019 Office Visit Family Kevin Richter, [address] [place] [address] 12/19/2019 Office Visit Nephrology Gia White MD [address] [facility] [address] [facility] [place] [address] 01/02/2020 Office Visit Pharmacy [facility] [place] [address] [place] [address] 02/04/2020 Office Visit Dermatology Aplpe Kaminski MD [address] [place] [address] [phone] 02/07/2020 Office Visit Orthopedics Zack Teague, [address] [place] [address] 02/26/2020 Office Visit Cardiology Rey Woodall MD [address] [place] [address] 05/08/2020 Office Visit Family Medicine Kevin Whiteside, [address] [place] [phone] 11/27/2020 Office Visit Pulmonary Celsa Tafoya CRNP [address] [place] [address] Scheduled Referrals Name Type Priority Associated [...] Additional history exists CKD GFR USE SMARTSET 31286 06/06/202012/04, 11/07/2019, 09/10/2019, Additional history exists BREAST CANCER SCREENING DISCUSSION YEARLY AGES 40-75 07/10/2020 07/10/2019, 06/23/2018, 05/09/2015, Additional history exists CKD HGB USE SMARTSET 01904 09/10/202009/10, 07/20/2019, 02/26/2019, Additional history exists CKD PHOS USE SMARTSET 02065 11/07/202010/27, 12/29/2017, 08/26/2009, Additional history exists DIABETES-FOOT [...] on File Type Date Recorded Patient Manager Support Expl 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
--- OUTSIDE RECORDS SUMMARY | 2023-06-01 05:32 | External Medical Summary | Summary of Care ---
Author Name Unknown Organization [place] [address] Care Team Providers Care Brake Machine Operator Name Role Phone Kevin Whiteside DO Primary Care Provider Reason for Visit * Reason Comments [facility]: Maintenance Encounter Details Date Type Department Care Team Description 12/06/2019 Telephone [facility] [address] [facility] [place] [address] [facility] Nurse [facility] [address] [facility] [place] [address] [phone] [facility]: Maintenance Allergies Active Allergy [...] 08/09/2019 Active Vitamin D, Ergocalciferol, 1.25 MG (49098 UT) CapsuleIndications:V itamin D deficiency Take 1 [...] 7.0%-8.0% ([facility]) Take 1 Cap by mouth 3 times [...] 10/14/2014 Overview: ICD-10 update of inactive term [place] filter in place 08/19/2014 History of pulmonary [...] Telephone Encounter - Maris Mariscal RN - 12/06/2019 3:19 PM EDT Call placed to pt to reschedule her appt with RNCM per request of Brooke ELLIOTT. Pt agreeable to rescheduling appt. appt changed to 12/11/19. Pt agreeable to appt times documented in this encounter Plan of Treatment Upcoming Encounters Date Type Specialty Care Team Description 12/07/2019 Home Visit [facility] [place] Saira Salmon, [facility]unt[facility] Pairer [address] [place] [address] [phone] 12/10/2019 Office Visit Family Medicine Kevin Whiteside DO [address] [address] [phone] 12/11/2019 Home Visit [facility] Brooke Jose RN [address] [place] [address] [phone] 12/19/2019 Office Visit Nephrology Gia White MD [address] [place] [address] [phone] 01/02/2020 Office Visit Pharmacy [facility] [place] [address] [place] [address] 02/04/2020 Office Visit Dermatology Apple Kaminski MD [address] [place] [address] [phone] 02/07/2020 Office Visit Orthopedics Zack Teague, DO [address] [place] [address] [phone] 02/26/2020 Office Visit Cardiology Rey Woodall MD [address] [place] [address] 05/08/2020 Office Visit Family Medicine Kevin Whiteside, [address] [place] [address] 11/27/2020 Office [...] Additional history exists CKD GFR USE SMARTSET 95635 06/06/202012/04, 11/07/2019, 09/10/2019, Additional history exists BREAST CANCER SCREENING DISCUSSION YEARLY AGES 40-75 07/10/2020 07/10/2019, 06/23/2018, 05/09/2015, Additional history exists CKD HGB USE SMARTSET 41882 09/10/202009/10, 07/20/2019, 02/26/2019, Additional history exists CKD PHOS USE SMARTSET 82662 11/07/202010/27, 12/29/2017, 08/26/2009, Additional history exists DIABETES-FOOT [...] Documents on File Type Date Recorded Patient Embedded Firmware Developer Expl 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
--- OUTSIDE RECORDS SUMMARY | 2023-06-01 05:32 | External Medical Summary | Summary of Care ---
Author Name Unknown Organization [place] [address] Care Team Providers Care Bag Machine Helper Name Role Phone Kevin Whiteside DO Primary Care Provider Reason for Referral * Evaluate & Treat - Unlimited Visits (Within 3 days (urgent)) Status Reason Specialty Diagnoses / Procedures Referred By Contact Referred To Contact Authorized Specialty Services Required Nephrology Diagnoses Chronic kidney disease, unspecified CKD stage Angi Barr PA-C [address] [place] [address] Encounter Details Date Type Department Care Team Description 12/05/2019 Telephone Family Practice [facility] [address] [place] [address] Angi Barr PA-C [facility] [place] [address] [phone] Allergies Active Allergy Reactions Severity Noted Date [...] 3 08/30/2018 Active Blood Glucose Monitoring Suppl (Elemental Cyber SecurityTOUCH ULTRA 2) w/Device KIT Use to test [...] 08/09/2019 Active Vitamin D, Ergocalciferol, 1.25 MG (59669 UT) CapsuleIndications:V itamin D deficiency Take 1 [...] Specialty Care Team Description 12/06/2019 Home Visit [facility] Brooke Jose, RN [address] [place] [address] [phone] 12/10/2019 Office Visit Family Medicine Kevin Whiteside, DO [address] [address] [phone] 01/02/[address] [facility], [facility] [place] [address] [place] [address] 02/04/2020 Office Visit Dermatology Apple Kaminski MD [address] [place] [address], [place] [address] [phone] 02/07/2020 Office Visit Orthopedics Zack Teague, DO [address] [place] [address] [phone] 02/26/2020 Office Visit Cardiology Rey Woodall MD [address] [place] [address] [phone] 05/08/2020 Office Visit Family Medicine Kevin Whiteside, [address] [address] [phone] 11/27/2020 Office Visit Pulmonary Celsa Tafoya CRNP [address] [place] [address] [phone] Scheduled Referrals Name Type Priority Associated Diagnoses [...] Additional history exists CKD GFR USE SMARTSET 06870 06/06/202012/04, 11/07/2019, 09/10/2019, Additional history exists BREAST CANCER SCREENING DISCUSSION YEARLY AGES 40-75 07/10/2020 07/10/2019, 06/23/2018, 05/09/2015, Additional history exists CKD HGB USE SMARTSET 29233 09/10/202009/10, 07/20/2019, 02/26/2019, Additional history exists CKD PHOS USE SMARTSET 39986 11/07/202010/27, 12/29/2017, 08/26/2009, Additional history exists DIABETES-FOOT [...] on File Type Date Recorded Patient Director It Expl 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
--- OUTSIDE RECORDS SUMMARY | 2023-06-01 05:32 | External Medical Summary | Summary of Care ---
Author Name Unknown Organization [place] [address] Care Team Providers Care Patient Manager Name Role Phone Kevin Whiteside DO Primary Care Provider Reason for Referral * Evaluate & Treat - Unlimited Visits (Within 3 days (urgent)) Status Reason Specialty Diagnoses / Procedures Referred By Contact Referred To Contact Authorized Specialty Services Required Nephrology Diagnoses Chronic kidney disease, unspecified CKD stage Angi Barr PA-C [address] [place] [address] Encounter Details Date Type Department Care Team Description 12/05/2019 Telephone Family Practice [facility] [address] [place] [address] Angi [facility]-C [facility] [place] [address] [phone] Allergies Active Allergy Reactions Severity Noted Date [...] 3 08/30/2018 Active Blood Glucose Monitoring Suppl (Door 6TOUCH ULTRA 2) w/Device KIT Use to test [...] 08/09/2019 Active Vitamin D, Ergocalciferol, 1.25 MG (73304 UT) CapsuleIndications:V itamin D deficiency Take 1 [...] Brooke Jose, RN [address] [place] [address] [phone] 12/10/2019 Office Visit Family Medicine Kevin Whiteside, DO [address] [place] [address] [phone] 01/02/[address] [facility] [place] [address] [place] [address] 02/04/2020 Office Visit Dermatology Apple Kaminski MD [address] [place] [address], [place] [address] [phone] 02/07/2020 Office Visit Orthopedics Zack Teague, DO [address] [place] [address] [phone] 02/26/2020 Office Visit Cardiology Rey Woodall MD [address] [place] [address] [phone] 05/08/2020 Office Visit Family Medicine Kevin Whiteside, [address] [address] [phone] 11/27/2020 Office Visit Pulmonary Celsa Tafoya CRNP [address] [place] [address] [phone] Scheduled Referrals Name Type Priority Associated Diagnoses [...] Additional history exists CKD GFR USE SMARTSET 70439 06/06/202012/04, 11/07/2019, 09/10/2019, Additional history exists BREAST CANCER SCREENING DISCUSSION YEARLY AGES 40-75 07/10/2020 07/10/2019, 06/23/2018, 05/09/2015, Additional history exists CKD HGB USE SMARTSET 54033 09/10/202009/10, 07/20/2019, 02/26/2019, Additional history exists CKD PHOS USE SMARTSET 64834 11/07/202010/27, 12/29/2017, 08/26/2009, Additional history exists DIABETES-FOOT [...] on File Type Date Recorded Patient Computer Engineering Professor Expl 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
--- OUTSIDE RECORDS SUMMARY | 2023-06-01 05:32 | External Medical Summary | Summary of Care ---
Author Name Unknown Organization [place] [address] Care Team Providers Care Bus Mechanic Name Role Phone Kevin Whiteside DO Primary Care Provider Reason for Referral * Evaluate & Treat - Unlimited Visits (Within 3 days (urgent)) Status Reason Specialty Diagnoses / Procedures Referred By Contact Referred To Contact Authorized Specialty Services Required Nephrology Diagnoses Chronic kidney disease, unspecified CKD stage Angi Barr PA-C [address] [place] [address] Encounter Details Date Type Department Care Team Description 12/05/2019 Telephone Family Practice [facility] [address] [place] [address] Angi [facility]C [facility] [place] [address] [phone] Allergies Active Allergy Reactions Severity Noted Date [...] 3 08/30/2018 Active Blood Glucose Monitoring Suppl (CleanTieTOUCH ULTRA 2) w/Device KIT Use to test [...] 08/09/2019 Active Vitamin D, Ergocalciferol, 1.25 MG (58466 UT) CapsuleIndications:V itamin D deficiency Take 1 [...] Specialty Care Team Description 12/07/2019 [facility] Visit [facility] [address] [place] [address] [phone] 12/10/2019 Office Visit Family Medicine Kevin Whiteside DO [address] [address] [address] [phone] 12/11/2019 Home Visit [facility] Brooke Jose RN [address] [place] [address] [phone] 12/19/2019 Office Visit [facility] [place] [address] [phone] 01/02/2020 Office Visit Pharmacy [facility] [place] [address] [address] 02/04/2020 Office Visit Dermatology Apple Kaminski MD [address] [place] [address], [place] [address] [phone] 02/07/2020 Office Visit Orthopedics Zack Teague, DO [address] [place] [address] [phone] 02/26/2020 Office Visit Cardiology Rey Woodall MD [address] [place] [address] [phone] 05/08/2020 Office Visit Family Medicine Kevin Whiteside, [address] [place] [address] [phone] 11/27/2020 Office Visit Pulmonary Celsa Tafoya CRNP [address] [place] [address] [phone] Scheduled Referrals Name Type Priority Associated Diagnoses [...] Additional history exists CKD GFR USE SMARTSET 56884 06/06/202012/04, 11/07/2019, 09/10/2019, Additional history exists BREAST CANCER SCREENING DISCUSSION YEARLY AGES 40-75 07/10/2020 07/10/2019, 06/23/2018, 05/09/2015, Additional history exists CKD HGB USE SMARTSET 15564 09/10/202009/10, 07/20/2019, 02/26/2019, Additional history exists CKD PHOS USE SMARTSET 31129 11/07/202010/27, 12/29/2017, 08/26/2009, Additional history exists DIABETES-FOOT [...] Documents on File Type Date Recorded Patient Mica Miner Blasting Expl 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
--- OUTSIDE RECORDS SUMMARY | 2023-06-01 05:32 | External Medical Summary | Summary of Care ---
Author Name Unknown Organization [place] [address] Care Team Providers Care Rn Registry Name Role Phone Kevin Whiteside DO Primary Care Provider Reason for Referral * Evaluate & Treat - Unlimited Visits (Within 3 days (urgent)) Status Reason Specialty Diagnoses / Procedures Referred By Contact Referred To Contact Authorized Specialty Services Required Nephrology Diagnoses Chronic kidney disease, unspecified CKD stage Angi Barr PA-C [address] [place] [address] Encounter Details Date Type Department Care Team Description 12/05/2019 Telephone Family Practice [facility] [address] [place] [address] Angi Barr PA-C [facility] [place] [address] [phone] Allergies Active Allergy Reactions Severity Noted Date [...] 3 08/30/2018 Active Blood Glucose Monitoring Suppl (XigniteTOUCH ULTRA 2) w/Device KIT Use to test [...] 08/09/2019 Active Vitamin D, Ergocalciferol, 1.25 MG (70059 UT) CapsuleIndications:V itamin D deficiency Take 1 [...] Family Medicine Kevin Whiteside, [address] [place] [address] [phone] 12/19/2019 Office Visit Nephrology Gia White MD [address] [place] [address] [phone] 01/02/2020 Office Visit Pharmacy [facility] [place] [address] [place] [address] 02/04/2020 Office Visit Dermatology Apple Kaminski MD [address] [place] [address] [phone] 02/07/2020 Office Visit Orthopedics Zack Teague DO [address] [place] [address] [phone] 02/26/2020 Office Visit Cardiology Rey Woodall MD [address] [address] [phone] 05/08/2020 Office Visit Family Medicine Kevin Whiteside DO [address] [place] [address] [phone] 11/27/2020 Office Visit Pulmonary Celsa Tafoya CRNP [address] [place] [address] [phone] Scheduled Referrals Name Type Priority Associated Diagnoses [...] Additional history exists CKD GFR USE SMARTSET 02549 06/06/202012/04, 11/07/2019, 09/10/2019, Additional history exists BREAST CANCER SCREENING DISCUSSION YEARLY AGES 40-75 07/10/2020 07/10/2019, 06/23/2018, 05/09/2015, Additional history exists CKD HGB USE SMARTSET 09145 09/10/202009/10, 07/20/2019, 02/26/2019, Additional history exists CKD PHOS USE SMARTSET 81926 11/07/202010/27, 12/29/2017, 08/26/2009, Additional history exists DIABETES-FOOT [...] on File Type Date Recorded Patient Embedded Systems Software Developer Expl anation Advanced Directive 08/22/2009 [...]
--- OUTSIDE RECORDS SUMMARY | 2023-06-01 05:32 | External Medical Summary | Summary of Care ---
Author Name Unknown Organization [place] [address] Care Team Providers Care Business Support Professional Name Role Phone Kevin Whiteside DO Primary Care Provider Reason for Referral * Evaluate & Treat - Unlimited Visits (Within 3 days (urgent)) Status Reason Specialty Diagnoses / Procedures Referred By Contact Referred To Contact Authorized Specialty Services Required Nephrology Diagnoses Chronic kidney disease, unspecified CKD stage Angi Barr PA-C [address] [place] [address] Encounter Details Date Type Department Care Team Description 12/05/2019 Telephone Family Practice [facility] [address] [place] [address] Angi [facility]C [facility] [place] [address] [phone] Allergies Active Allergy Reactions Severity Noted Date [...] 3 08/30/2018 Active Blood Glucose Monitoring Suppl (AgendizeTOUCH ULTRA 2) w/Device KIT Use to test [...] 08/09/2019 Active Vitamin D, Ergocalciferol, 1.25 MG (79887 UT) CapsuleIndications:V itamin D deficiency Take 1 [...] Team Description 12/07/2019 [facility] Visit [facility] [place] [place], [facility] Senior Product Development Manager [address] [place] [address] [phone] 12/10/2019 Office Visit Family Medicine Kevin Whiteside DO [address] [address] [phone] 12/11/2019 [facility] Visit [facility] Brooke Jose RN [address] [place] [address] [phone] 12/19/2019 Office Visit Nephrology Gia White MD [address] [facility] [place] [address] [phone] 01/02/2020 Office Visit Pharmacy [facility] [place] [address] [facility] [place] [address] 02/04/2020 Office Visit Dermatology Apple Kaminski MD [address] [place] [address] [phone] 02/07/2020 Office Visit Orthopedics Zack Teague, DO [address] [facility] [place] [address] [phone] 02/26/2020 Office Visit Cardiology Rey Woodall MD 132 [facility] [place] [address] 05/08/2020 Office Visit Family Medicine [facility]iteside, [facility] [place] [address] [phone] 11/27/2020 Office Visit Pulmonary Celsa Tafoya CRNP 132 [facility] [place] [id number] Scheduled Referrals Name Type Priority Associated Diagnoses [...] Additional history exists CKD GFR USE SMARTSET 29611 06/06/202012/04, 11/07/2019, 09/10/2019, Additional history exists BREAST CANCER SCREENING DISCUSSION YEARLY AGES 40-75 07/10/2020 07/10/2019, 06/23/2018, 05/09/2015, Additional history exists CKD HGB USE SMARTSET 94205 09/10/202009/10, 07/20/2019, 02/26/2019, Additional history exists CKD PHOS USE SMARTSET 21315 11/07/202010/27, 12/29/2017, 08/26/2009, Additional history exists DIABETES-FOOT [...] on File Type Date Recorded Patient Associate Director Of Sales Expl 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
--- OUTSIDE RECORDS SUMMARY | 2023-06-01 05:33 | External Medical Summary | Summary of Care ---
Author Name Unknown Organization [place] [address] Care Team Providers Care Appliance Service 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 Name Role Phone Kevin Whiteside DO Primary Care Provider Reason for Visit * Reason Comments Acute body aches/bilateral lower abdominal pain/fatigue/general malaise/low grade intermittent fever/recent fall/L knee pain Encounter Details Date Type Department Care Team Description 11/30/2019 Office Visit [facility] [address] [place] [address] [id number] Deepa Ambriz MD [address] [place] [address] [phone] Lower abdominal pain*; Generalized weakness; Epigastric pain; Loss of appetite; Uncontrolled type 2 diabetes mellitus with stage 3 chronic kidney disease, with long-term current use of insulin (HCC); Vasculitis ([facility]) Allergies Active Allergy Reactions Severity Noted Date Comments Pollen 05/18/2019 Heparin 09/04/2009 Heparin Induced Thrombocytopenia Empagliflozin Other (Please comment) Medium 05/17/2018 3 yeast infections in 6 weeks after starting Morphine And Related 09/16/1997 Hallucinations Tetanus Toxoid Other (Please comment) 06/15/2011 Passed out documented as of this encounter (statuses as of 11/30/2019) Medications Medication Sig Dispensed Refills Start Date [...] 3 08/30/2018 Active Blood Glucose Monitoring Suppl (EcoSwarmTOUCH ULTRA 2) w/Device KIT Use to test [...] 08/09/2019 Active Vitamin D, Ergocalciferol, 1.25 MG (52142 UT) CapsuleIndications:V itamin D deficiency Take 1 [...] MG/0.5ML SOPNIndications:DM type 2 nursing care encounter ([facility]),Uncontrolled type 2 diabetes mellitus with stage 3 chronic kidney disease, with long-term current use of insulin ([facility]) Inject 1.5 mg under [...] TWICE DAILY 60 Tab 0 11/27/2019 Active sulfamethoxazole-tri methoprim DS (BACTRIM DS) 800-160 MG per tablet Take 1 Tab by mouth 2 times a day for 7 days. Until gone 14 Tab 0 11/26/2019 0 Active oxygen GASIndications:ELISSA (obstructive sleep apnea) [...] as of this encounter (statuses as of 11/30/2019) Active Problems Problem Noted Date Primary osteoarthritis [...] as of this encounter (statuses as of 11/30/2019) Resolved Problems Problem Noted Date Resolved Date [...] as of this encounter (statuses as of 11/30/2019) Immunizations Name Administration Dates Next Due Pneumococcal [...] Reading Time Taken Comments Blood Pressure 130/74 11/30/2019 9:05 AM EST Pulse 82 11/30/2019 9:05 AM EST Temperature 36 C (96.8 F) 11/30/2019 9:05 AM EST Respiratory Rate 18 11/30/2019 9:05 AM EST Oxygen Saturation - - Inhaled Oxygen Concentration - - Weight 139.3 kg (307 lb) 11/30/2019 9:05 AM EST Height 162.6 cm (5' 4") 11/30/2019 9:05 AM EST Body Mass Index 52.7 11/30/2019 9:05 AM EST documented in this encounter Progress Notes * Deepa Ambriz MD - 11/30/2019 9:48 AM EST SUBJECTIVE: Stephanie Camp is a 64 year old female. Chief Complaint Patient presents with Acute body aches/bilateral lower abdominal pain/fatigue/general malaise/low grade intermittent fever/recent fall/L knee pain HPI: Patient of Dr. Whiteside presents today for acute appointment with symptoms of lower abdominal pain for the last 1 and half to 2 weeks. She sitting in the chair holding her lower abdomen. States it is a sharp shooting pain, associated with low back pain. denies any fever but admits to a generalized achiness, fatigue, loss of appetite. She is not eating properly. She did not take her insulin thismorning she is on Bactrim currently for the last some 4 days for possible UTI but urine culture done on the 4th is negative. She also complains of severe pain in her left knee. Follows up with Ortho on a regular basis. She is on tramadol. Denies nausea or vomiting. States she has intermittent consti pation and diarrhea. Yesterday had 2 bowel movements which were loose. No blood or mucus. She did not look at the color. Today has not had any bowel movement yet. Chart reviewed Results for orders placed or performed in visit on 11/28/19 CULTURE QUANT URINE Result Value Ref Range SPECIMEN DESCRIPTION CLEAN CATCH URINE CULTURE LESS THAN 100 COLONIES/ML (NO GROWTH) REPORT STATUS 11/29/2019 FINAL URINE W/ MICROSCOPIC Result Value Ref Range COLOR, UA STRAW (A) YEL CLARITY, UA CLEAR CLEAR GLUCOSE, UA NEGATIVE NEG mg/dL BILIRUBIN, UA NEGATIVE NEG KETONE, UA NEGATIVE NEG mg/dL SPECIFIC GRAVITY 1.014 1.003 - 1.030 BLOOD, UA NEGATIVE NEG PH, UA 6.0 5.0 - 7.5 units PROTEIN, UA NEGATIVE NEG mg/dL UROBILINOGEN, UA NORMAL NORM mg/dL NITRITE, UA NEGATIVE NEG ESTERASE, UA MODERATE (A) NEG BACTERIA, UA 26-50 (A) BVW185 /HPF WBC, UA 30-49 (A) U02 /HPF RBC, UA 0-2 U02 /HPF *Note: Due to a large number of results and/or encounters for the requested time period, some results have not been displayed. A complete set of results can be found in Results Review. Creatinine Results: CREATININE(mg/dL) Nessa Dt/Tm Resulted Value Status 11/07/19 3:07P 11/07/19 2.0* FINAL 09/10/19 7:48A 09/10/19 2.0* FINAL 08/09/19 11:02A 08/09/19 1.7* FINAL Basic Panel Results: BASIC METAB PANEL, BMP Nessa Dt/Tm Resulted Value Status BUN (mg/dL) 11/07/19 3:07P 11/07/19 35* F CREATININE (mg/dL) 11/07/19 3:07P 11/07/19 2.0* F E GLOM FILT RATE ( ) 11/07/19 3:07P 11/07/19 25.1* F SODIUM (mmol/L) 11/07/19 3:07P 11/07/19 139 F POTASSIUM (mmol/L) 11/07/19 3:07P 11/07/19 4.2 F CHLORIDE (mmol/L) 11/07/19 3:07P 11/07/19 96* F CO2 (mmol/L) 11/07/19 3:07P 11/07/19 28 F ANION GAP (mmol/L) 11/07/19 3:07P 11/07/19 15 F GLUCOSE (mg/dL) 11/07/19 3:07P 11/07/19 214* F CALCIUM (mg/dL) 11/07/19 3:07P 11/07/19 10.1 F Past Surgical History: Procedure Laterality Date ARTHROPLASTY KNEE TOTAL Right 07/24/14 R COLONOSCOPY, DIAGNOSTIC (RECTUM) 02/18/2016 normal, repeat 10 yrs/[facility] COLONOSCOPY, GI REFERRAL OP 01/28/06 diverticulosis--repeat 10 years INCISION OF WINDPIPE, PLANNED 06/03/2011 TRACHEOSTOMY PLANNED performed by DANNY HOLDER at OR [facility] KNEE ARTHROSCOPY/DEBRIDEMENT 07/[address] PERMANENT GASTROSTOMY TUBE 09/06/09 GASTROSTOMY WITH CONSTUCTION GASTRIC TUBE performed by AMADOU NUNEZ at OR [facility] REMOVAL OF THYROID GLAND 06/15/2011 THYROIDECTOMY INCLUDING SUBSTERNAL THYROID CERVICAL APPROACH performed by DANNY HOLDER at OR [facility] REMOVE GALLBLADDER 09/06/09 CHOLECYSTECTOMY performed by AMADOU NUNEZ at OR [facility] REPAIR RECURRENT INCISIONAL HERNIA 1998 REVISION OF COLOSTOMY, SIMPLE 1998 SUTURE, LARGE INTESTINE W/COLOSTOMY 1996 perforation R colon with colostomy VENA CAVA FILTER/LIGATION/CLIP 08/19/09 [place] filter placement through the right femoral 08/19/[address] Lerma at [facility] Immunization History Administered Date(s) Administered Pneumococcal Polysaccharide PPV23 (Pneumovax) 06/15/2006, 08/22/2009 Seasonal Influenza, Quadrivalent, No Preserve, 6 Mons & Above, IM 07/14/2017, 06/12/2018, 07/23/2019 Seasonal Influenza, Quadrivalent, No Preserve, IM 07/24/2015, 06/24/2016 Seasonal Influenza, Trivalent, with Preserve, 3yr & Above, Split 09/04/2002, 08/07/2004, 10/19/2006, 08/14/2007, 07/04/2008, 08/01/2009, 06/15/2010, 06/28/2011, 07/07/2012, 06/13/2014 Varicella Zoster Vaccine (Adult) 12/11/2015 Zoster Vaccine Recombinant (Shingrix) 11/07/2019 Current Outpatient Medications Medication Sig Dispense Refill oxygen GAS 2 LPM bled through CPAP 11 cwp during all periods of sleep and 2 LPM via NC with exertion. clonazePAM (KLONOPIN) 0.5 MG Tablet TAKE ONE TABLET BY MOUTH TWICE DAILY 60 Tab 0 sulfamethoxazole-trimethoprim DS (BACTRIM DS) 800-160 MG per tablet Take 1 Tab by mouth 2 timesa day for 7 days. Until gone 14 Tab 0 insulin aspart (NOVOLOG) 100 UNIT/ML [...] total 90 mg daily. 90 Cap 4 clobetasol propionate (TEMOVATE) 0.05 % cream apply [...] Tab 1 Vitamin D, Ergocalciferol, 1.25 MG (81622 UT) Capsule Take 1 Cap by mouth [...] 20 MG PO CPDR one tablet daily insulin aspart (INSULIN ASPART) 100 UNIT/ML injection USE IN INSULIN PUMP UP TO 200 UNITS PER DAY 30 mL 7 traZODone (DESYREL) 50 MG Tablet Take 1 Tab by mouth at bedtime. 30 Tab 5 Patient Active Problem List Diagnosis Code Dyslipidemia E78.5 ELLIE (generalized anxiety disorder) F41.1 Postsurgical hypothyroidism E89.0 Nocturnal hypoxemia G47.34 ELISSA (obstructive sleep apnea) G47.33 Venous insufficiency I87.2 HTN, goal below 130/80 I10 History of pulmonary embolus (PE) Z86.711 Statin intolerance Z78.[address] Z95.828 Type 2 diabetes mellitus with hemoglobin A1c goal of 7.0%-8.0% ([facility]) E11.9 Fibromyalgia M79.7 Abnormality of gait R26.9 Restless legs syndrome G25.81 Gastroesophageal reflux disease with esophagitis K21.0 Uncontrolled type 2 diabetes mellitus with stage 3 chronic kidney disease, with long-term current use of insulin ([facility]) E11.22, E11.65, N18.3, Z79.4 Body mass index (BMI) of 50.0 to 59.9 in adult ([facility]) Z68.43 Controlled substance agreement signed Z79.899 Chronic diastolic congestive heart failure ([facility]) I50.32 Thoracic back pain M54.6 Mild episode of recurrent major depressive disorder ([facility]) F33.0 Lumbar radiculopathy M54.16 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 clonazePAM (KLONOPIN) 0.5 MG Tablet TAKE ONE TABLET BY MOUTH TWICE DAILY 60 Tab 0 sulfamethoxazole-trimethoprim DS (BACTRIM DS) 800-160 MG per tablet Take 1 Tab by mouth 2 timesa day for 7 days. Until gone 14 Tab 0 insulin aspart (NOVOLOG) 100 UNIT/ML [...] total 90 mg daily. 90 Cap 4 clobetasol propionate (TEMOVATE) 0.05 % cream apply [...] Tab 1 Vitamin D, Ergocalciferol, 1.25 MG (65695 UT) Capsule Take 1 Cap by mouth [...] 20 MG PO CPDR one tablet daily insulin aspart (INSULIN ASPART) 100 UNIT/ML injection USE IN INSULIN PUMP UP TO 200 UNITS PER DAY 30 mL 7 traZODone (DESYREL) 50 MG Tablet Take 1 Tab by mouth at bedtime. 30 Tab 5 Facility-Administered Medications Prior to Visit Medication Dose Route Frequency Provider Last Rate Last Dose levalbuterol (XOPENEX) inhalation solution 1.25 mg 1.25 mg Nebulizer Q4H PRN TATIANA Silveira 1.25 mg at 09/14/19 1543 levalbuterol (XOPENEX) inhalation solution 0.63 mg 0.63 mg Nebulizer Q4H PRN TATIANA Negrete Last reviewed on 11/30/2019 9:05 AM by Sonja Samaniego LPN Review of patient's allergies indicates: Allergen Reactions Jardiance [Empagliflozin] Other (Please comment) 3 yeast infections in 6 weeks after starting Hay Fever [Pollen] Heparin Heparin Induced Thrombocytopenia Morphine And Related Hallucinations Tetanus Toxoid Other (Please comment) Passed out OBJECTIVE: BP 130/74 | Pulse 82 | Temp (Src) 96.8 (Tympanic) | Resp 18 | Ht 5' 4" (1.626m) | Wt 307 lbs (139.254kg) | BMI 52.7 kg/m | BSA 2.51 m | LMP 03/11/2003 PHYSICAL EXAM: General: alert, healthy, no distress, well developed, tearful Op mm moist Heart: regular rhythm and rate,No murmurs. Lungs: lungs clear to auscultation Extremities: no edema Abdomen: Soft, obese, diffuse lwoer abd and epigastric tenderness, dec bowel sounds Skin--faint papular dry rash legs. ASSESSMENT/PLAN: Lower abdominal pain (Primary) Generalized weakness Epigastric pain Loss of appetite Uncontrolled type 2 diabetes mellitus with stage 3 chronic kidney disease, with long-term current use of insulin (HCC) Vasculitis (HCC) DD diverticulitis, r/o ileus. Needs labs, xrays, CT Discussed with patient need for further evaluation and treatment and she is agreeble to go to ER, friend is with her and will take her Er to be notified by nurse. Follow Up: Return if symptoms worsen or fail to improve. To ER. (This note was completed using the dictation program Fluency Direct. As such, there may be misspellings, word substitutions, or other variations that should not change the essence of the clinical content of this encounter note. If there is need for further clarification, please direct questions to the provider listed above.) Patient and / caregiver verbalizes understanding of above instructions and agrees with plan of care. Deepa Ambriz MD 11/30/2019 * Sonja Samaniego LPN - 11/30/2019 9:01 AM EST Reports the following symptoms for the past 2 weeks: mid back pain that feels like stabbing, sharp,intermittent pain, body aches, severe all of body pain, L knee pain that feels like "someone stabbing me with 3 hot knives" constant pain, bilateral lower abdominal pain that "feels like when I have a diverticulitis attack", recent fall, fatigue, general malaise, and low grade intermittent fever. 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 Currently finishing ABT for UTI. Has tried Tramadol for the pain and not tried any OTC nor home remedies forthe other symptoms. Reports ongoing, intermittent constipation - may be due to Tramadol use. Reports last BM yesterday of some what loose, good size BM. Reports does take stool softener every day. documented in this encounter Nursing Notes * Sonja Samaniego LPN - 11/30/2019 8:56 AM EST Chief Complaint Patient presents with Acute body aches/bilateral lower abdominal pain/fatigue/general malaise/low grade intermittent fever/recent fall/L knee pain Reports the following symptoms for the past 2 weeks: mid back pain that feels like stabbing, sharp,intermittent pain, body aches, severe all of body pain, L knee pain that feels like "someone stabbing me with 3 hot knives" constant pain, bilateral lower abdominal pain that "feels like when I have a diverticulitis attack", recent fall, fatigue, general malaise, and low grade intermittent fever. 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 Currently finishing ABT for UTI. Has tried Tramadol for the pain and not tried any OTC nor home remedies forthe other symptoms. Reports ongoing, intermittent constipation - may be due to Tramadol use. Reports last BM yesterday of some what loose, good size BM. Reports does take stool softener every day. documented in this encounter Plan of Treatment Upcoming Encounters Date Type Specialty Care Team Description 12/06/2019 [facility] Visit [facility] Brooke Jose, RN [address] [place] [address] [phone] 12/10/2019 Office Visit Family Medicine Kevin Whiteside DO [address] [address] [phone] 01/02/2020 Office Visit Pharmacy [facility] [address] [place] [address] 02/04/2020 Office Visit Dermatology Apple Kaminski MD [address] [place] [address] [phone] 02/07/2020 Office Visit Orthopedics Zack Teague, DO [address] [place] [address] [phone] 02/26/2020 Office Visit Cardiology Rey Woodall MD [address] [facility] [place] [address] 05/08/2020 Office Visit Family Medicine Kevin Whiteside DO [address] [place] [address] 11/27/2020 Office Visit Pulmonary Celsa Tafoya CRNP [address] [facility] [place] [address] Health Maintenance Due Date Last Done Comments Zoster Vaccines (3 of 3) 01/02/2020 11/07/2019, 11/24 Yearly B-12 03/14/2020 03/14/2019, 05/16/2018 DIABETES-EYE EXAM 04/05/2020 04/05/2019, (Done elsewhere), 12/18/2009, Additional history exists CKD GFR USE SMARTSET 92606 05/07/202011/07, 09/10/2019, 08/09/2019, Additional history exists DIABETES-HGBA1C EVERY 6 MONTHS 05/07/2020 11/07/2019, 08/09/2019, 03/14/2019, Additional history exists DIABETES-URINE MICROALBUMIN EVERY 12 MONTHS 05/24/2020 05/24/2019, 02/26/2019, 12/23/2018, Additional history exists BREAST CANCER SCREENING DISCUSSION YEARLY AGES 40-75 07/10/2020 07/10/2019, 06/23/2018, 05/09/2015, Additional history exists CKD HGB USE SMARTSET 59866 09/10/202009/10, 07/20/2019, 02/26/2019, Additional history exists CKD PHOS USE SMARTSET 88793 11/07/202010/27, 12/29/2017, 08/26/2009, Additional history exists DIABETES-FOOT [...] as of this encounter Visit Diagnoses Diagnosis Lower abdominal pain- Primary Abdominal pain, other specified site Generalized weakness Other malaise and fatigue Epigastric pain Abdominal pain, epigastric Loss of appetite Anorexia Uncontrolled type 2 diabetes mellitus with stage 3 chronic kidney disease, with long-term current use of insulin (HCC) Vasculitis (HCC) Arteritis, unspecified documented in this encounter Advance Directives Documents on File Type Date Recorded Patient Pharmacy Director Expl 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
--- OUTSIDE RECORDS SUMMARY | 2023-06-01 05:33 | External Medical Summary ---
Author Name Unknown Address Unknown Organization [facility] USE ONLY!!! Laboratory Report Ordering Provider Test Date Status NIKOLAI MCCALLUM 11/28/2019 13:11:00 Final Observation Date Value Abnormality Reference (Units ) Status Source 11/28/2019 13:07 CLEAN CATCH URINE Final Bacteria XXX Cult 11/29/2019 11:52 LESS THAN 100 COLONIES/ML (NO GROWTH) Final REPORT STATUS 11/29/2019 11:52 11/29/2019 FINAL Final Performing Location [facility] USE ONLY!!!
--- OUTSIDE RECORDS SUMMARY | 2023-06-01 05:33 | External Medical Summary | Summary of Care ---
Author Name Unknown Organization [place] [address] Care Team Providers Care Parking Station Attendant Name Role Phone Kevin Whitesidemelinda Primary Care Provider Reason for Visit * Reason Comments [facility]: Acute Encounter Details Date Type Department Care Team Description 11/26/2019 Telephone [facility], [facility] [address] [facility] [place] [address] [facility] Nurse [facility] [address] [facility] [place] [address] [phone] [facility]: Acute Allergies Active Allergy Reactions Severity Noted Date Comments Pollen 05/18/2019 Heparin 09/04/2009 Heparin Induced Thrombocytopenia Empagliflozin Other (Please comment) Medium 05/17/2018 3 yeast infections in 6 weeks after starting Morphine And Related 09/16/1997 Hallucinations Tetanus Toxoid Other (Please comment) 06/15/2011 Passed out documented as of this encounter (statuses as of 11/29/2019) Medications Medication Sig Dispensed Refills Start Date [...] 08/09/2019 Active Vitamin D, Ergocalciferol, 1.25 MG (90053 UT) CapsuleIndications:V itamin D deficiency Take 1 [...] MG/0.5ML SOPNIndications:DM type 2 nursing care encounter ([facility]),Uncontrolled type 2 diabetes mellitus with stage 3 chronic kidney disease, with long-term current use of insulin (HCC) Inject 1.5 mg under the skin once a week. 5 Pre-filled Pen Syringe Dosing Unit 5 11/07/2019 Active insulin aspart (NOVOLOG) 100 UNIT/ML SOPN Inject 25 Units under the skin three times a day with meals. 5 Pre-filled Pen Syringe Dosing Unit 1 11/15/2019 Active Hospital, Clinic, or Other Facility Administered Medication Ordered Dose Route Frequency Start Date End Date Status levalbuterol (XOPENEX) inhalation solution 0.63 mgIndications:Wheezing 0.63 mg NEBULIZER Q4H PRN 09/12/2019 Ac tive levalbuterol (XOPENEX) inhalation solution 1.25 mgIndications:AVENDAÑO (dyspnea on exertion),Wheezing 1.25 mg NEBULIZER Q4H PRN 09/13/2019 Active documented as of this encounter (statuses as of 11/29/2019) Active Problems Problem Noted Date Primary osteoarthritis [...] as of this encounter (statuses as of 11/29/2019) Resolved Problems Problem Noted Date Resolved Date [...] as of this encounter (statuses as of 11/29/2019) Immunizations Name Administration Dates Next Due Pneumococcal [...] Telephone Encounter - Chrystal Mooney RN - 11/26/2019 3:36 PM EST [facility]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 HPI: Stephanie Camp is a 64 year old old female that is calling [facility] Int[facility] to report a return call from [facility]. When asked if she if there is anything else Intake can do and then states feelsachy, shaky inside and out and generally "weak and crappy". States feels UTI is back. ROS: Denies fever. States took tylenol earlier. States BS was 220 about 30-60 mins before phone call. States drinking ok, denies appetite. States left knee remains bad. States feels UTI is back. States burning with urination, foul odor.Pain and pressure in lower abdomen and stomach. Denies blood in urine. States "a little" SOB and denies wearing o2. Encouraged to apply especially with activity. Denies CP. Nursing Assessment: Patient's chief complaint for this call: See above Pain Has pain See above Baseline Assessment Able to performing ADLs at baseline (walking, daily tasks, etc.): Yes Chief Complaint is related to a chronic condition: Unknown Patient prescribed oxygen? Yes, 2L/min, using as prescribed. Encouraged to apply Patient has been ordered DME equipment (assistive devices, respiratory equipment, etc.): Unknown Medication Reconciliation: (See medication list) Received flu shot this season: Yes Taking medication as ordered: Yes Medications ordered/taking to treat reason for call: Yes, PRN medication(s) tylenol Heart failure symptoms: No COPD exacerbation symptoms: No Reinforcement Education: Aware intake to reach out for an acute visit. Asked if able to go to clinic and states she just moved to the area. Apply o2 as directed for SOB. Pt aware of visit. Treatment/Plan: (need to report) Level of call: Acute Appointment scheduled for same day: Yes Physician Provider Name: Dr. Kendrick Treatment plan until appointment: Aware of acute visit. Chrystal Mooney RN [facility] Intake Chart to RN, Dr. Kendrick. Call back instructions provided to patient. documented in this encounter Plan of Treatment Upcoming Encounters Date Type Specialty Care Team Description 12/06/2019 Home Visit [facility] Brooke Jose RN [address] [place] [address] [phone] 12/10/2019 Office Visit Family Medicine Kevin Whiteside, [address] [place] [address] [phone] 01/02/2020 Office Visit Pharmacy [facility] [address] [place] [address] 02/04/2020 Office Visit Dermatology Apple Kaminski MD [address] [place] [address], [place] [address] [phone] 02/07/2020 Office Visit Orthopedics Zack Teague DO [address] [place] [address] [phone] 02/26/2020 Office Visit Cardiology Rey Woodall MD [address] [place] [address] [phone] 05/08/2020 Office Visit Family Medicine Kevin Whiteside, DO [address] [place] [address] [phone] 11/27/2020 Office Visit Pulmonary Celsa Tafoya CRNP [address] [place] [address] [phone] Health Maintenance Due Date Last Done Comments Zoster Vaccines (3 of 3) 01/02/2020 11/07/2019, 11/24 Yearly B-12 03/14/2020 03/14/2019, 05/16/2018 DIABETES-EYE EXAM 04/05/2020 04/05/2019, (Done elsewhere), 12/18/2009, Additional history exists CKD GFR USE SMARTSET 05860 05/07/202011/07, 09/10/2019, 08/09/2019, Additional history exists DIABETES-HGBA1C EVERY 6 MONTHS 05/07/2020 11/07/2019, 08/09/2019, 03/14/2019, Additional history exists DIABETES-URINE MICROALBUMIN EVERY 12 MONTHS 05/24/2020 05/24/2019, 02/26/2019, 12/23/2018, Additional history exists BREAST CANCER SCREENING DISCUSSION YEARLY AGES 40-75 07/10/2020 07/10/2019, 06/23/2018, 05/09/2015, Additional history exists CKD HGB USE SMARTSET 37761 09/10/202009/10, 07/20/2019, 02/26/2019, Additional history exists CKD PHOS USE SMARTSET 35384 11/07/202010/27, 12/29/2017, 08/26/2009, Additional history exists DIABETES-FOOT [...] File Type Date Recorded Patient Director Of Litigation Expl 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
--- OUTSIDE RECORDS SUMMARY | 2023-06-01 05:33 | External Medical Summary ---
Author Name Unknown Address [facility] [id number] Phone Organization K01:[facility] [address] [place] [address] Laboratory Report Ordering Provider Test Date Status NIKOLAI MCCALLUM 11/28/2019 13:12:00 Final Observation Date Value Abnormality Reference (Units ) Status Color Ur Auto 11/28/2019 16:47 STRAW Abnormal YEL Final Clarity, Urine 11/28/2019 16:47 CLEAR CLEAR Final Glucose Ur Strip.auto-mCnc 11/28/2019 16:47 NEGATIVE NEG (mg/dL) Final Bilirub Ur Ql Strip.auto 11/28/2019 16:47 NEGATIVE NEG Final Ketones Ur Strip.auto-mCnc 11/28/2019 16:47 NEGATIVE NEG (mg/dL) Final Specific gravity, Urine 11/28/2019 16:47 1.014 1.003-1.030 Final Hemoglobin [Presence] in Urine by Automated test strip 11/28/2019 16:47 NEGATIVE NEG Final pH, Urine 11/28/2019 16:47 6.0 5.0-7.5 (units) Final Prot Ur Strip.auto-mCnc 11/28/2019 16:47 NEGATIVE NEG (mg/dL) Final Urobilinogen Ur Strip.auto-mCnc 11/28/2019 16:47 NORMAL NORM (mg/dL) Final Nitrite Ur Ql Strip.auto 11/28/2019 16:47 NEGATIVE NEG Final Leukocyte esterase [Presence} in Urine by Automated test strip 11/28/2019 16:47 MODERATE Abnormal NEG Final Bacteria/area UmS Auto 11/28/2019 16:47 26-50 Abnormal ZWK641 (/HPF) Final WBC No./area UrnS Auto 11/28/2019 16:47 30-49 Abnormal U02 (/HPF) Final RBC No./area UrnS Auto 11/28/2019 16:47 0-2 U02 (/HPF) Final Performing Location [facility] [address] [facility] [address]
--- OUTSIDE RECORDS SUMMARY | 2023-06-01 05:33 | External Medical Summary | Summary of Care ---
Author Name Unknown Organization [place] [address] Care Team Providers Care Property Management Assistant Name Role Phone Stveo Kevin Ocampomelinda Primary Care Provider Reason for Visit * Reason Comments Medication Question Encounter Details Date Type Department Care Team Description 11/15/2019 [facility] [address] [facility] [address] Medication Question Allergies Active Allergy Reactions Severity Noted Date Comments Pollen 05/18/2019 Heparin 09/04/2009 Heparin Induced Thrombocytopenia Empagliflozin Other (Please comment) Medium 05/17/2018 3 yeast infections in 6 weeks after starting Morphine And Related 09/16/1997 Hallucinations Tetanus Toxoid Other (Please comment) 06/15/2011 Passed out documented as of this encounter (statuses as of 11/22/2019) Medications Medication Sig Dispensed Refills Start Date [...] 3 08/30/2018 Active Blood Glucose Monitoring Suppl (Wutsat SystemsTOUCH ULTRA 2) w/Device KIT Use to [...] mouth daily. 180 Tab 3 05/15/2019 Active oxygen GASIndications:ELISSA (obstructive sleep apnea) 2 L/min(Oxygen). 2 LPM bled through CPAP 11 cwp during all periods of sleep. 0 05/15/2019 Active Magnesium Oxide 400 (241.3 mg) [...] 08/09/2019 Active Vitamin D, Ergocalciferol, 1.25 MG (04535 UT) CapsuleIndications:V itamin D deficiency Take 1 [...] Pain, Severe. 90 Tab 0 10/19/2019 Active clonazePAM (KLONOPIN) 0.5 MG TabletIndications:An xiety state Take 1 Tab by mouth 2 times a day. 60 Tab 0 10/25/2019 Active Nortriptyline HCl (PAMELOR) 50 MG CapsuleIndications:F [...] use of insulin ([facility]) Inject 1.5 mg under the skin once a week. 5 Pre-filled Pen Syringe Dosing Unit 5 11/07/2019 Active insulin aspart (NOVOLOG) 100 UNIT/ML SOPN Inject 25 Units under the skin three times a day with meals. 5 Pre-filled Pen Syringe Dosing Unit 1 11/15/2019 Active amoxicillin (AMOXIL) 500 MG CapsuleIndications:U TI symptoms Take 1 Cap by mouth 2 times a day for 5 days. 10 Cap 0 11/11/2019 0 Hospital, Clinic, or Other Facility Administered Medication Ordered Dose Route Frequency Start Date End Date Status levalbuterol (XOPENEX) inhalation solution 0.63 mgIndications:Wheezing 0.63 mg NEBULIZER Q4H PRN 09/12/2019 Ac tive levalbuterol (XOPENEX) inhalation solution 1.25 mgIndications:AVENDAÑO (dyspnea on exertion),Wheezing 1.25 mg NEBULIZER Q4H PRN 09/13/2019 Active documented as of this encounter (statuses as of 11/22/2019) Active Problems Problem Noted Date Primary osteoarthritis [...] as of this encounter (statuses as of 11/22/2019) Resolved Problems Problem Noted Date Resolved Date [...] as of this encounter (statuses as of 11/22/2019) Immunizations Name Administration Dates Next Due Pneumococcal [...] Alcohol Use Drinks/Week oz/Week Comments Yes rare Food Insecurity Answer Date Recorded Within [...] Telephone Encounter - Rose Barton RPh - 11/15/2019 9:40 AM EST Patient Phone Numbers Spoke to patient via phone. Sending message to [employer] to see if any way to expedite shipment of supplies Recommending rotation back to [facility] when pump supplies are gone until new supplies arrive if need be: Tresiba 50 units HS Novolog 25 units with meals Patient to call if High BG values with those doses. Rose Barton, Pharm D Clinical Pharmacist 11/15/2019, 9:46 AM * Telephone Encounter - Stephanie Solitario TECH - 11/15/2019 9:25 AM EST Pt would like return call [phone]. Pt will be out of supplies. She will not be getting her shipment until first week of November. They are to be shipping 3/3. Asking if she can get Novolog needles. documented in this encounter Plan of Treatment Upcoming Encounters Date Type Specialty Care Team Description 11/23/2019 Scheduled Telephone [facility] Saira [facility], [facility] [address] [facility] [place] [address] [phone] 11/28/2019 Office Visit Pulmonary Celsa Tafoya CRNP [address] [place] [address] [phone] 01/02/2020 Office Visit Pharmacy [facility] [address] [place] [phone] 02/04/2020 Office Visit Dermatology Apple Kaminski MD [address] [place] [address] [phone] 02/07/2020 Office Visit Orthopedics Zack Teague, [address] [place] [address] 02/26/2020 Office Visit Cardiology Rey Woodall MD [address] [place] [address] [phone] 05/08/2020 Office Visit Family Medicine Kevin Whiteside, [address] [place] [address] [phone] Health Maintenance Due Date Last Done Comments Zoster Vaccines (3 of 3) 01/02/2020 11/07/2019, 11/24 Yearly B-12 03/14/2020 03/14/2019, 05/16/2018 DIABETES-EYE EXAM 04/05/2020 04/05/2019, (Done elsewhere), 12/18/2009, Additional history exists CKD GFR USE SMARTSET 60390 05/07/202011/07, 09/10/2019, 08/09/2019, Additional history exists DIABETES-HGBA1C EVERY 6 MONTHS 05/07/2020 11/07/2019, 08/09/2019, 03/14/2019, Additional history exists DIABETES-URINE MICROALBUMIN EVERY 12 MONTHS 05/24/2020 05/24/2019, 02/26/2019, 12/23/2018, Additional history exists BREAST CANCER SCREENING DISCUSSION YEARLY AGES 40-75 07/10/2020 07/10/2019, 06/23/2018, 05/09/2015, Additional history exists CKD HGB USE SMARTSET 42494 09/10/202009/10, 07/20/2019, 02/26/2019, Additional history exists CKD PHOS USE SMARTSET 78149 11/07/202010/27, 12/29/2017, 08/26/2009, Additional history exists DIABETES-FOOT [...] Documents on File Type Date Recorded Patient Cork Molder Expl 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
--- OUTSIDE RECORDS SUMMARY | 2023-06-01 05:33 | External Medical Summary | Summary of Care ---
Author Name Unknown Organization [place] [address] Care Team Providers Care Wood Casket Maker Name Role Phone Migue Whiteside DO Primary Care Provider Reason for Visit * Reason Comments eRx-Medication Refill Encounter Details Date Type Department Care Team Description 11/26/2019 Refill Family Practice [facility] [address] [place] [address] Migue Whiteside DO [address] [facility] [place] [address] [phone] Anxiety state Allergies Active Allergy Reactions Severity Noted Date Comments Pollen 05/18/2019 Heparin 09/04/2009 Heparin Induced Thrombocytopenia Empagliflozin Other (Please comment) Medium 05/17/2018 3 yeast infections in 6 weeks after starting Morphine And Related 09/16/1997 Hallucinations Tetanus Toxoid Other (Please comment) 06/15/2011 Passed out documented as of this encounter (statuses as of 11/27/2019) Medications Medication Sig Dispensed Refills Start Date [...] 3 8 Active Blood Glucose Monitoring Suppl (ONETOUCH [...] mouth daily. 180 Tab 3 9 Active oxygen GASIndications:ELISSA (obstructive sleep apnea) 2 L/min(Oxygen). 2 LPM bled through CPAP 11 cwp during all periods of sleep. 0 9 Active Magnesium Oxide 400 (241.3 mg) [...] 9 Active Vitamin D, Ergocalciferol, 1.25 MG (17373 UT) CapsuleIndications: Vitamin D deficiency Take 1 [...] OTHER MEDS 90 Tab 1 9 Active clobetasol propionate (TEMOVATE) 0.05 % creamIndications:Va sculitis (HCC) apply to rash on the legs and arm twice daily x 1-2 weeks. 30 g 5 9 Active insulin aspart (INSULIN ASPART) 100 [...] a day. 270 Cap 5 0 Active traMADol (ULTRAM) 50 MG TabletIndications:C hronic pain syndrome Take 1 Tab by mouth every 8 hours as needed for Pain, Severe. 90 Tab 0 0 Active Nortriptyline HCl (PAMELOR) 50 MG [...] TWICE DAILY 60 Tab 0 0 Active sulfamethoxazole-tr imethoprim DS (BACTRIM DS) 800-160 MG per tablet Take 1 Tab by mouth 2 times a day for 7 days. Until gone 14 Tab 0 0 12/03/19 20 Active clonazePAM (KLONOPIN) 0.5 MG TabletIndications:A nxiety state Take 1 Tab by mouth 2 times a day. 60 Tab 0 0 11/26/19 20 Discontinued Hospital, Clinic, or Other Facility Administered Medication Ordered Dose Route Frequency Start Date End Date Status levalbuterol (XOPENEX) inhalation solution 0.63 mgIndications:Wheezing 0.63 mg NEBULIZER Q4H PRN 09/12/2019 Ac tive levalbuterol (XOPENEX) inhalation solution 1.25 mgIndications:AVENDAÑO (dyspnea on exertion),Wheezing 1.25 mg NEBULIZER Q4H PRN 09/13/2019 Active documented as of this encounter (statuses as of 11/27/2019) Active Problems Problem Noted Date Primary osteoarthritis [...] as of this encounter (statuses as of 11/27/2019) Resolved Problems Problem Noted Date Resolved Date [...] as of this encounter (statuses as of 11/27/2019) Immunizations Name Administration Dates Next Due Pneumococcal [...] Telephone Encounter - Migue Whiteside DO - 11/27/2019 8:30 AM EST Signed Prescriptions: Disp Refills clonazePAM (KLONOPIN) 0.5 MG Tablet 60 Tab 0 Sig: TAKE ONE TABLET BY MOUTH TWICE DAILY Authorizing Provider: MIGUE WHITESIDE * Telephone Encounter - Callum Zuñiga [facility] - 11/26/2019 4:36 PM EST Pending Prescriptions: Disp Refills clonazePAM (KLONOPIN) 0.5 MG Tablet [Phar*60 Tab 0 Sig: TAKE ONE TABLET BY MOUTH TWICE DAILY * Telephone Encounter - Callum Zuñiga RP - 11/26/2019 4:35 PM EST I have reviewed the patients controlled substance dispensing history in the Prescription Drug Monitoring Program in compliance with the [facility] regulations before prescribing a controlled substance. PDMP checked on 11/26/2019. Patient requesting: Klonopin, filled 10/25/19, for #60 for a 30 day supply. Other recent controlled medication fills: Tramadol, filled 10/20/19, for #90 for a 30 day supply. Last Office Visit: 11/20/2019 Next Office Visit: 05/08/2020 Scheduled Provider(s): Migue Whiteside, DO Date medication is due for refill: 11/23/19 Pharmacy: [id number] Is this request for a controlled [...] Results Review. Please approve if appropriate. Thanks, Kenny SepulvedaPh. Clinical Pharmacist [facility] [phone] [id number] 11/26/2019,4:35 PM documented in this encounter Plan of Treatment Upcoming Encounters Date Type Specialty Care Team Description 11/28/2019 Office Visit Pulmonary Celsa Tafoya CRNP [address] [place] [address] [phone] 12/06/2019 Home Visit [facility] Brooke Jose RN [address] [place] [address] [phone] 01/02/2020 Office Visit Pharmacy [facility] [place] [address] [place] [address] 02/04/2020 Office Visit Dermatology Apple Kaminski MD [address] [place] [address] [phone] 02/07/2020 Office Visit Orthopedics Zack Teague, DO [address] [place] [id number] 02/26/2020 Office Visit Cardiology Rey Woodall MD [address] [place] [phone] 05/08/2020 Office Visit Family Medicine Migue Whiteside, DO [address] [place] [address] [phone] Health Maintenance Due Date Last Done Comments Zoster Vaccines (3 of 3) 01/02/2020 11/07/2019, 11/24 Yearly B-12 03/14/2020 03/14/2019, 05/16/2018 DIABETES-EYE EXAM 04/05/2020 04/05/2019, (Done elsewhere), 12/18/2009, Additional history exists CKD GFR USE SMARTSET 73248 05/07/202011/07, 09/10/2019, 08/09/2019, Additional history exists DIABETES-HGBA1C EVERY 6 MONTHS 05/07/2020 11/07/2019, 08/09/2019, 03/14/2019, Additional history exists DIABETES-URINE MICROALBUMIN EVERY 12 MONTHS 05/24/2020 05/24/2019, 02/26/2019, 12/23/2018, Additional history exists BREAST CANCER SCREENING DISCUSSION YEARLY AGES 40-75 07/10/2020 07/10/2019, 06/23/2018, 05/09/2015, Additional history exists CKD HGB USE SMARTSET 09861 09/10/202009/10, 07/20/2019, 02/26/2019, Additional history exists CKD PHOS USE SMARTSET 43089 11/07/202010/27, 12/29/2017, 08/26/2009, Additional history exists DIABETES-FOOT [...] Documents on File Type Date Recorded Patient Dredge Captain Expl 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
--- OUTSIDE RECORDS SUMMARY | 2023-06-01 05:33 | External Medical Summary | Summary of Care ---
Author Name Unknown Organization [place] [address] Care Team Providers Care Manager Wastewater Name Role Phone Kevin Whiteside DO Primary Care Provider Reason for Visit * Reason Comments Emergency Department Follow-Up Encounter Details Date Type Department Care Team Description 12/03/2019 Telephone Family Practice [facility] [address] [facility] [address] Kevin Whiteside DO [address] [facility] [place] [address] Emergency Department Follow-Up Allergies Active Allergy Reactions Severity Noted Date Comments Pollen 05/18/2019 Heparin 09/04/2009 Heparin Induced Thrombocytopenia Empagliflozin Other (Please comment) Medium 05/17/2018 3 yeast infections in 6 weeks after starting Morphine And Related 09/16/1997 Hallucinations Tetanus Toxoid Other (Please comment) 06/15/2011 Passed out documented as of this encounter (statuses as of 12/03/2019) Medications Medication Sig Dispensed Refills Start Date [...] 08/09/2019 Active Vitamin D, Ergocalciferol, 1.25 MG (96468 UT) CapsuleIndications:V itamin D deficiency Take 1 [...] as of this encounter (statuses as of 12/03/2019) Active Problems Problem Noted Date Primary osteoarthritis [...] 10/14/2014 Overview: ICD-10 update of inactive term [place] filter in place 08/19/2014 History of pulmonary [...] as of this encounter (statuses as of 12/03/2019) Resolved Problems Problem Noted Date Resolved Date [...] as of this encounter (statuses as of 12/03/2019) Immunizations Name Administration Dates Next Due Pneumococcal [...] Miscellaneous Notes * Telephone Encounter - Tasha Bedoya LPN - 12/03/2019 11:03 AM EDT Call was dropped before transfer. Tc back to patient. Emergency Department Follow Up: When was patient seen: 11/26 and 11/29 Which ED: [facility] What were they seen for: 11/26 fall and 11/29 abd pain What testing did they have done: cxr, lab work and ct scan What did ED think was wrong (dx): unknown Any new medications prescribed: oxycodone How is patient feeling today: stomach cramps occasionally Patient concerns today: following up in PCP office. Er follow up scheduled. * Telephone Encounter - Kamryn Ramon OSA - 12/03/2019 10:59 AM EDT Reason for patient's call: Patient was seen in the ER at [facility] 11/27/2019 and 11/30/2019 Caller was transferred to Tasha at the nurse line. documented in this encounter Plan of Treatment Upcoming Encounters Date Type Specialty Care Team Description 12/05/2019 Office Visit Family Medicine Angi Barr PA-C [address] [place] [address] [place] [address] [phone] 12/06/2019 Home Visit [facility] Brooke Jose RN [address] [place] [address] [phone] 12/10/2019 Office Visit Family Kevin Richter, DO [address] [place] [address] [phone] 01/02/2020 Office Visit Pharmacy [facility] [address] [place] [address] 02/04/2020 Office Visit Dermatology Apple Kaminski MD [address] [place] [address], [place] [address] [phone] 02/07/2020 Office Visit Orthopedics Zack Teague, [address] [place] [id number] 02/26/2020 Office Visit Cardiology Rey Woodall MD [address] [place] [address] [phone] 05/08/2020 Office Visit Family Medicine Kevin Whiteside, [address] [place] [address] [phone] 11/27/2020 Office Visit Pulmonary Celsa Tafoya CRNP [address] [place] [address] [phone] Health Maintenance Due Date Last Done Comments Zoster Vaccines (3 of 3) 01/02/2020 11/07/2019, 11/24 Yearly B-12 03/14/2020 03/14/2019, 05/16/2018 DIABETES-EYE EXAM 04/05/2020 04/05/2019, (Done elsewhere), 12/18/2009, Additional history exists CKD GFR USE SMARTSET 55375 05/07/202011/07, 09/10/2019, 08/09/2019, Additional history exists DIABETES-HGBA1C EVERY 6 MONTHS 05/07/2020 11/07/2019, 08/09/2019, 03/14/2019, Additional history exists DIABETES-URINE MICROALBUMIN EVERY 12 MONTHS 05/24/2020 05/24/2019, 02/26/2019, 12/23/2018, Additional history exists BREAST CANCER SCREENING DISCUSSION YEARLY AGES 40-75 07/10/2020 07/10/2019, 06/23/2018, 05/09/2015, Additional history exists CKD HGB USE SMARTSET 65380 09/10/202009/10, 07/20/2019, 02/26/2019, Additional history exists CKD PHOS USE SMARTSET 39749 11/07/202010/27, 12/29/2017, 08/26/2009, Additional history exists DIABETES-FOOT [...] on File Type Date Recorded Patient Inside Finisher Expl 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
--- OUTSIDE RECORDS SUMMARY | 2023-06-01 05:33 | External Medical Summary | Summary of Care ---
Author Name Unknown Organization [place] [address] Care Team Providers Care Engineering Design Supervisor Name Role Phone Kevin Whiteside DO Primary Care Provider Reason for Visit * Reason Comments Follow Up CHEST CT REVIEW * Evaluate & Treat - Unlimited Visits (Within 10 days (routine)) Status Reason Specialty Diagnoses / Procedures Referred By Contact Referred To Contact Pending Review Specialty Services Required Pulmonary Diseases Diagnoses Nocturnal hypoxemia Kevin Whiteside DO [address] [facility] [place] [address] Encounter Details Date Type Department Care Team Description 11/28/2019 Office Visit Pulmonary Medicine, [facility] [address] [facility] [place] [address] Celsa Tafoya CRNP [address] [facility] [place] [address] [phone] Small airways disease*; ELISSA (obstructive sleep apnea); Chronic respiratory failure with hypoxia (HCC) Allergies Active Allergy Reactions Severity Noted Date Comments Pollen 05/18/2019 Heparin 09/04/2009 Heparin Induced Thrombocytopenia Empagliflozin Other (Please comment) Medium 05/17/2018 3 yeast infections in 6 weeks after starting Morphine And Related 09/16/1997 Hallucinations Tetanus Toxoid Other (Please comment) 06/15/2011 Passed out documented as of this encounter (statuses as of 11/28/2019) Medications Medication Sig Dispensed Refills Start Date [...] 3 08/30/2018 Active Blood Glucose Monitoring Suppl (JoyentTOUCH ULTRA 2) w/Device KIT Use to test [...] 08/09/2019 Active Vitamin D, Ergocalciferol, 1.25 MG (18622 UT) CapsuleIndications: Vitamin D deficiency Take 1 [...] 5 10/15/2019 Active traMADol (ULTRAM) 50 MG TabletIndications:C hronic pain syndrome Take 1 Tab by mouth every 8 hours as needed for Pain, Severe. 90 Tab 0 10/19/2019 Active Nortriptyline HCl (PAMELOR) 50 MG CapsuleIndications: [...] TWICE DAILY 60 Tab 0 11/27/2019 Active sulfamethoxazole-tr imethoprim DS (BACTRIM DS) 800-160 MG per tablet Take 1 Tab by mouth 2 times a day for 7 days. Until gone 14 Tab 0 11/26/2019 0 Active oxygen GASIndications:ELISSA (obstructive sleep apnea) 2 LPM bled through CPAP 11 cwp during all periods of sleep and 2 LPM via NC with exertion. 0 11/28/2019 Active oxygen GASIndications:ELISSA (obstructive sleep apnea) 2 L/min(Oxygen). 2 LPM bled through CPAP 11 cwp during all periods of sleep. 0 05/15/2019 0 Discontinu ed(Refill) Hospital, Clinic, or Other Facility Administered Medication Ordered Dose Route Frequency Start Date End Date Status levalbuterol (XOPENEX) inhalation solution 0.63 mgIndications:Wheezing 0.63 mg NEBULIZER Q4H PRN 09/12/2019 Ac tive levalbuterol (XOPENEX) inhalation solution 1.25 mgIndications:AVENDAÑO (dyspnea on exertion),Wheezing 1.25 mg NEBULIZER Q4H PRN 09/13/2019 Active documented as of this encounter (statuses as of 11/28/2019) Active Problems Problem Noted Date Primary osteoarthritis [...] as of this encounter (statuses as of 11/28/2019) Resolved Problems Problem Noted Date Resolved Date [...] as of this encounter (statuses as of 11/28/2019) Immunizations Name Administration Dates Next Due Pneumococcal [...] Sign Reading Time Taken Comments Blood Pressure 130/92 11/28/2019 12:14 PM EST Pulse 98 11/28/2019 12:14 PM EST Temperature - - Respiratory Rate - - Oxygen Saturation - - Inhaled Oxygen Concentration - - Weight 147.4 kg (325 lb) 11/28/2019 12:14 PM EST Height - - Body Mass Index 55.79 11/20/2019 8:22 AM EST documented in this encounter Progress Notes * Celsa Tafoya CRNP - 11/28/2019 12:24 PM EST [facility] Pulmonary History: ELISSA on CPAP with oxygen RLS (iron supplementation caused GI upset/constipation) Chronic respiratory failure - 08/2019 6 MWT RA - low 85% / 3 MWT 2 LPM - low 89% PMH includes CHF, obesity, pneumonia requiring extended ventilation and trach, CKD, DM, HTN, GERD, chronic back pain. Stephanie returns to clinic to further discuss testing performed s/t wheezing. Interim History: Doesn't sense wheezing. Noting baseline shortness of breath with moderate exertion (she was able to walk from car into clinic without SOB). Home nursing continues to note wheezing on exam. Fell yesterday, injured her knee. Now in a stabilizer. Trying to lose weight in order to have knee surgery. Has lost some. Needs A1c to improve to <7. Continues with Vasculitis. Pulmonary Symptoms: Cough: PND related Sputum Production: denies Shortness of Breath at rest or with conversation: denies Dyspnea on Exertion: see above Chest tightness: denies Wheezing: denies Nocturnal symptoms: denies Pulmonary Medications: None Sleep Symptoms & Treatment: CPAP used nightly. Denies tolerance issues. Compliance Data: Report date: 30 days, 11/25/19 % total days used: 100 % days used > 4 hours: 93 Average hours per day used: 7 hours 0 mins Large leak: 3 mins AHI: 0.2 Equipment: DME Provider: [facility] Oxygen Device/settin cmH20 Oxygen: 2 LPM Functional Outcomes of Sleep Questionnaire (Pt Reported) [...] Source: Clinic Completion Date: 11/28/2019 12:22:32 PM Pony Sleepiness Scale (Pt Reported) Sitting and reading [...] Source: Clinic Completion Date: 11/28/2019 12:20:33 PM Reviewed changes in PMH, PSH or family history in the interim of care. 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) E11.22, E11.65, N18.3, Z79.4 Body mass index (BMI) of 50.0 to 59.9 in adult ([facility]) Z68.43 Controlled substance agreement signed Z79.899 Chronic diastolic congestive heart failure ([facility]) I50.32 Thoracic back pain M54.6 Mild episode of recurrent major depressive disorder (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) I13.0, I50.30, N18.3 Chronic respiratory failure with hypoxia ([facility]) J96.11 Hyperparathyroidism, secondary renal ([facility]) N25.81 Vasculitis ([facility]) I77.6 Primary osteoarthritis of left knee M17.12 Medications: Outpatient Medications Marked as Taking for the 11/28/19 encounter (Office Visit) with TATIANA Negrete Medication Sig clonazePAM (KLONOPIN) 0.5 MG Tablet TAKE ONE TABLET BY MOUTH TWICE DAILY sulfamethoxazole-trimethoprim DS (BACTRIM DS) 800-160 MG per tablet Take 1 Tab by mouth 2 timesa day for 7 days. Until gone insulin aspart (NOVOLOG) 100 UNIT/ML SOPN Inject 25 Units under the skin three times a day withmeals. Dulaglutide (TRULICITY) 1.5 MG/0.5ML SOPN Inject 1.5 mg under the skin once a week. colchicine 0.6 MG Tablet Take 1/2 tab daily Nortriptyline HCl (PAMELOR) 50 MG Capsule Take 1 Cap by mouth at bedtime. traMADol (ULTRAM) 50 MG Tablet Take 1 Tab by mouth every 8 hours as needed for Pain, Severe. gabapentin (NEURONTIN) 300 MG Capsule Take 1 Cap by mouth 3 times a day. DULoxetine (CYMBALTA) 60 MG CPEP Take 1 Cap by mouth daily. Along with 30 mg capsule to total 90 mg daily. insulin aspart (INSULIN ASPART) 100 UNIT/ML injection USE IN INSULIN PUMP UP TO 200 UNITS PER DAY clobetasol propionate (TEMOVATE) 0.05 % cream apply to rash on the legs and arm twice daily x 1-2 weeks. levothyroxine (LEVOXYL) 200 MCG Tablet TAKE ONE TABLET BY MOUTH EVERY DAY AT LEAST 30 MINUTES BEFORE BREAKFAST OR OTHER MEDS levothyroxine (LEVOXYL) 25 MCG Tablet TAKE ONE TABLET BY MOUTH IN THE MORNING AT LEAST 30 MINUTES PRIOR TO BREAKFAST OR OTHER MEDS Vitamin D, Ergocalciferol, 1.25 MG (88793 UT) Capsule Take 1 Cap by mouth every 4 weeks. DULoxetine (CYMBALTA) 30 MG CPEP Take 1 Cap by mouth daily. Take along with the 60mg dose for totally of 90mg daily. Do not cut, crush or chew spironolactone (ALDACTONE) 25 MG Tablet Take 1 Tab by mouth daily. Magnesium Oxide 400 (241.3 mg) Tablet Take 400 mg by mouth daily. furosemide (LASIX) 40 MG Tablet Take 40 mg by mouth daily. oxygen GAS 2 L/min(Oxygen). 2 LPM bled through CPAP 11 cwp during all periods of sleep. Glucose Blood (SeeqUCH ULTRA BLUE) STRP Check sugars 3-4 times daily traZODone (DESYREL) 50 MG Tablet Take 1 Tab by mouth at bedtime. rOPINIRole (REQUIP) 2 MG Tablet Take 1 Tab by mouth at bedtime. Insulin Pen Needle (BD PEN NEEDLE SHORT U/F) 31G X 8 MM Use 5 times daily with insulin clobetasol propionate (TEMOVATE) 0.05 % ointment Apply topically to affected area 2 times a day. To affected area for up to two weeks. metoprolol tartrate (LOPRESSOR) 25 MG Tablet Take 0.5 Tabs by mouth 2 times a day. Blood Glucose Monitoring Suppl (ONETOUCH ULTRA 2) w/Device KIT Use to test BG values ACCU-CHEK SOFTCLIX LANCETS MISC Test sugar 3-4 times a day. Ok to substitute Fastclix lancets, if needed. Glucose Blood (ACCU-CHEK HARRIS PLUS) STRP Test sugar 3-4 times a day. cyclobenzaprine (FLEXERIL) 10 MG Tablet TAKE ONE TABLET BY MOUTH AT BEDTIME NEEDED FOR MUSCLE SPASM ONETOUCH DELICA LANCETS 33G MISC Check blood sugars 3-4 times daily docusate sodium (STOOL SOFTENER) 100 MG Capsule Take 100 mg by mouth 2 times a day as needed for Constipation. PRILOSEC 20 MG PO CPDR one tablet daily Current Facility-Administered Medications for the 11/28/19 encounter (Office Visit) with TATIANA Negrete Medication levalbuterol (XOPENEX) inhalation solution 1.25 mg levalbuterol (XOPENEX) inhalation solution 0.63 mg BP 130/92 | Pulse 98 | Wt 325 lbs (147.419kg) | BMI 55.79 kg/m | BSA 2.58 m | LMP 03/11/2003 Physical Exam Vitals signs reviewed. Constitutional: General: She is not in acute distress. Appearance: She is not diaphoretic. HENT: Nose: No congestion. Mouth/Throat: Pharynx: No oropharyngeal exudate. Cardiovascular: Rate and Rhythm: Normal rate and regular rhythm. Heart sounds: No murmur. Pulmonary: Effort: Pulmonary effort is normal. No respiratory distress. Breath sounds: Normal breath sounds. Musculoskeletal: General: Swelling (minimal bilateral LE) present. Lymphadenopathy: Cervical: No cervical adenopathy. Skin: General: Skin is warm and dry. Capillary Refill: Capillary refill takes less than 2 seconds. Neurological: Mental Status: She is alert and oriented to person, place, and time. Psychiatric: Mood and Affect: Mood normal. Behavior: Behavior normal. Diagnostics: PFT 08/2019 Normal spirometry, lung volumes and DlCO. 6 MWT RA 08/2019 Low 85% / 3 MWT 2 LPM - low 89% CT Chest 10/23/19 No change in scattered subpleural reticular change of lungs (may represent chronic interstitial lung disease), mild mosairc attenuation pattern (nonspecific finding may repressent air trapping and small airways disease), mild peribronchial thickening/bronchiectasis Assessment / Plan: Small airways disease (Primary) Normal spirometry, lung volumes, diffusion capacity. Based on chest CT findings with mild peribronchial thickening/bronchiectasis with mild mosaic attenuation Declined trial of ICS as she is concerned that this may impact her HgbA1c levels and subsequently her desired knee surgery. Chronic hypoxemic respiratory failure Encouraged use of portable oxygen at 2 LPM with exertion and during sleep through CPAP. ELISSA (obstructive sleep apnea) Compliant, therapeutic and benefiting from treatment. Encouraged continued use during all periods of sleep. A total of 35 minutes were spent with the patient, more than half in [id number] explanation and discussion of the condition and treatment and answering questions. I have advised the patient to contact our office with any new or worsening symptoms. Return in about 1 year (around 11/27/2020) for pulm/ sleep return 60 mins (care plus/encore). TATIANA Figueredo MS Pulmonary & Sleep Medicine Bridger Sylvester documented in this encounter Nursing Notes * Evelyne Vee LPN - 11/28/2019 12:16 PM EST Chief Complaint Patient presents with Follow Up CHEST CT REVIEW NO NEW PULM/SLEEP COMPLAINTS documented in this encounter Plan of Treatment Upcoming Encounters Date Type Specialty Care Team Description 12/06/2019 Home Visit [facility] Brooke Jose RN [address] [place] [address] [phone] 12/10/2019 Office Visit Family Medicine Kevin Whiteside, [address] [place] [address] [phone] 01/02/2020 Office Visit Pharmacy [facility] [address] [place] [address] 02/04/2020 Office Visit Dermatology Apple Kaminski MD [address] [place] [address] [phone] 02/07/2020 Office Visit Orthopedics Zack Teague, [address] [place] [address] 02/26/2020 Office Visit Cardiology Rey Woodall MD [address] [place] [address] [phone] 05/08/2020 Office Visit Family Medicine Kevin Whiteside, [address] [place] [address] [phone] 11/27/2020 [facility] Visit [facility] [place] [address] [phone] Health Maintenance Due Date Last Done Comments Zoster Vaccines (3 of 3) 01/02/2020 11/07/2019, 11/24 Yearly B-12 03/14/2020 03/14/2019, 05/16/2018 DIABETES-EYE EXAM 04/05/2020 04/05/2019, (Done elsewhere), 12/18/2009, Additional history exists CKD GFR USE SMARTSET 60814 05/07/202011/07, 09/10/2019, 08/09/2019, Additional history exists DIABETES-HGBA1C EVERY 6 MONTHS 05/07/2020 11/07/2019, 08/09/2019, 03/14/2019, Additional history exists DIABETES-URINE MICROALBUMIN EVERY 12 MONTHS 05/24/2020 05/24/2019, 02/26/2019, 12/23/2018, Additional history exists BREAST CANCER SCREENING DISCUSSION YEARLY AGES 40-75 07/10/2020 07/10/2019, 06/23/2018, 05/09/2015, Additional history exists CKD HGB USE SMARTSET 52342 09/10/202009/10, 07/20/2019, 02/26/2019, Additional history exists CKD PHOS USE SMARTSET 88453 11/07/202010/27, 12/29/2017, 08/26/2009, Additional history exists DIABETES-FOOT [...] as of this encounter Visit Diagnoses Diagnosis Small airways disease- Primary Other diseases of lung, not elsewhere classified ELISSA (obstructive sleep apnea) Obstructive sleep apnea (adult) (pediatric) Chronic respiratory failure with hypoxia (HCC) Chronic respiratory failure documented in this encounter Advance Directives Documents on File Type Date Recorded 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
--- OUTSIDE RECORDS SUMMARY | 2023-06-01 05:33 | External Medical Summary | Summary of Care ---
Author Name Unknown Organization [place] [address] Care Team Providers Care Radial Drill Operator For Plastic Name Role Phone Stevo Kevin Gonzalez DO Primary Care Provider Encounter Details Date Type Department Care Team Description 11/26/2019 Home Visit [facility] [address] [facility] [place] [address] Lexus Kendrick DO [address] [facility] [place] [address] [phone] Dysuria* Allergies Active Allergy Reactions Severity Noted Date Comments Pollen 05/18/2019 Heparin 09/04/2009 Heparin Induced Thrombocytopenia Empagliflozin Other (Please comment) Medium 05/17/2018 3 yeast infections in 6 weeks after starting Morphine And Related 09/16/1997 Hallucinations Tetanus Toxoid Other (Please comment) 06/15/2011 Passed out documented as of this encounter (statuses as of 11/26/2019) Medications Medication Sig Dispensed Refills Start Date [...] 3 08/30/2018 Active Blood Glucose Monitoring Suppl (PiikuTOUCH ULTRA 2) w/Device KIT Use to test [...] 08/09/2019 Active Vitamin D, Ergocalciferol, 1.25 MG (85279 UT) CapsuleIndications:V itamin D deficiency Take 1 [...] Pen Syringe Dosing Unit 1 11/15/2019 Active sulfamethoxazole-tri methoprim DS (BACTRIM DS) 800-160 MG per tablet Take 1 Tab by mouth 2 times a day for 7 days. Until gone 14 Tab 0 11/26/2019 0 Active Hospital, Clinic, or Other Facility Administered Medication Ordered Dose Route Frequency Start Date End Date Status levalbuterol (XOPENEX) inhalation solution 0.63 mgIndications:Wheezing 0.63 mg NEBULIZER Q4H PRN 09/12/2019 Ac tive levalbuterol (XOPENEX) inhalation solution 1.25 mgIndications:AVENDAÑO (dyspnea on exertion),Wheezing 1.25 mg NEBULIZER Q4H PRN 09/13/2019 Active documented as of this encounter (statuses as of 11/26/2019) Active Problems Problem Noted Date Primary osteoarthritis [...] as of this encounter (statuses as of 11/26/2019) Resolved Problems Problem Noted Date Resolved Date [...] of inactive term HTN, goal below 140/90 04/09/200310/22/ 0 Overview: Per HTN Taxonomy. DM type 2, not at goal 05/29/2002 10 9 Overview: Modified per Diabetes protocol #14. TENOSYNOVITIS FOOT-ANKLE 12/26/2001 017 Goiter 01/13/2000 06/28/2011 BACKACHE NOS 08/26/1999 05/24/2017 OBESITY, UNSPECIFIED 08/26/1999 12/23/2009 Overview: Per Obesity Taxonomy Perforation of intestine 017 Overview: COLON Diverticulitis documented as of this encounter (statuses as of 11/26/2019) Immunizations Name Administration Dates Next Due Pneumococcal [...] Reading Time Taken Comments Blood Pressure 122/68 11/26/2019 5:15 PM EST Pulse 98 11/26/2019 5:15 PM EST Temperature 36.3 C (97.3 F) 11/26/2019 5:15 PM ES T Respiratory Rate - - Oxygen Saturation 99% 11/26/2019 5:15 PM EST 2 lpm Inhaled Oxygen Concentration - - Weight - - Height - - Body Mass Index - - documented in this encounter Progress Notes * Lexus Kendrick, - 11/26/2019 5:11 PM EST [facility] Problem Focused Provider Visit Date: 11/26/2019 Assessment and Plan: 1. Dysuria She can collect it at home and once give urine sample can start abx. chagne med if needed per the culture report. - URINE W/ MICROSCOPIC; Future - CULTURE QUANT URINE; Future Orders Placed This Encounter Medications sulfamethoxazole-trimethoprim DS (BACTRIM DS) 800-160 MG per tablet Sig: Take 1 Tab by mouth 2 times a day for 7 days. Until gone Dispense: 14 Tab Refill: 0 HPI: Stephanie is seen in the home today for a problem-focused provider visit. Few days chills and dysuria.Also reports her left knee very painful daily. Needs knee replacement but advaised must get hgba1c down further and lose more weight before the elective can be done. ROS: Review of Systems Constitutional: Positive for chills. Negative for fever. HENT: Negative for congestion and sinus pressure. Respiratory: Negative for cough, shortness of breath and wheezing. Gastrointestinal: Positive for constipation. Negative for abdominal pain. Genitourinary: Positive for dysuria, hematuria and urgency. Musculoskeletal: Left knee pain chronic. Needs a knee replacement Physical Exam: [facility] 03/11/2003 Physical Exam Constitutional: General: She is not in acute distress. Appearance: Normal appearance. She is obese. Cardiovascular: Rate and Rhythm: Normal rate and regular rhythm. Pulmonary: Effort: Pulmonary effort is normal. Breath sounds: Normal breath sounds. Abdominal: Palpations: Abdomen is soft. Tenderness: There is no abdominal tenderness. Musculoskeletal: Right lower leg: No edema. Left lower leg: No edema. Neurological: Mental Status: She is alert. DO Nag Maldonado at Home 5:11 PM documented in this encounter Plan of Treatment Upcoming Encounters Date Type Specialty Care Team Description 11/28/2019 Office Visit Pulmonary Celsa Tafoya CRNP [address] [place] [address] [phone] 12/06/2019 Home Visit [facility] Brooke Jose RN [address] [place] [address] [phone] 01/02/2020 Office Visit Pharmacy [facility] [address] [place] [address] 02/04/2020 Office Visit Dermatology Apple Kaminski MD [address] [place] [address], [place] [address] [phone] 02/07/2020 Office Visit Orthopedics Zack Teague DO [address] [place] [address] [phone] 02/26/2020 Office Visit Cardiology Rey Woodall MD [address] [place] [address] [phone] 05/08/2020 Office Visit Family Medicine Kevin Whiteside, DO [address] [place] [address] [phone] Scheduled Orders Name Type Priority Associated Diagnoses Orde r Schedule URINE W/ MICROSCOPIC Lab Routine Dysuria Expected: 11/26/2019 (Approximate), Expires: 12/03/2019 CULTURE QUANT URINE Lab Routine Dysuria Expected: 11/26/2019, Expires: 12/03/2019 Health Maintenance Due Date Last Done Comments Zoster Vaccines (3 of 3) 01/02/2020 11/07/2019, 11/24 Yearly B-12 03/14/2020 03/14/2019, 05/16/2018 DIABETES-EYE EXAM 04/05/2020 04/05/2019, (Done elsewhere), 12/18/2009, Additional history exists CKD GFR USE SMARTSET 55500 05/07/202011/07, 09/10/2019, 08/09/2019, Additional history exists DIABETES-HGBA1C EVERY 6 MONTHS 05/07/2020 11/07/2019, 08/09/2019, 03/14/2019, Additional history exists DIABETES-URINE MICROALBUMIN EVERY 12 MONTHS 05/24/2020 05/24/2019, 02/26/2019, 12/23/2018, Additional history exists BREAST CANCER SCREENING DISCUSSION YEARLY AGES 40-75 07/10/2020 07/10/2019, 06/23/2018, 05/09/2015, Additional history exists CKD HGB USE SMARTSET 36911 09/10/202009/10, 07/20/2019, 02/26/2019, Additional history exists CKD PHOS USE SMARTSET 22206 11/07/202010/27, 12/29/2017, 08/26/2009, Additional history exists DIABETES-FOOT [...] this encounter Visit Diagnoses Diagnosis Dysuria- Primary documented in this encounter Advance Directives Documents on File Type Date Recorded 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
--- OUTSIDE RECORDS SUMMARY | 2023-06-01 05:33 | External Medical Summary | Summary of Care ---
Author Name Unknown Organization [place] [address] Care Team Providers Care Cook Enchilada Name Role Phone Sergey Whitesideronit Ocampomelinda Primary Care Provider Encounter Details Date Type Department Care Team Description 11/30/2019 Scan Encounter Unspecified Department <No scans attached> [...] 08/09/2019 Active Vitamin D, Ergocalciferol, 1.25 MG (63316 UT) CapsuleIndications:V itamin D deficiency Take 1 [...] clobetasol propionate (TEMOVATE) 0.05 % creamIndications:Vas culitis ([facility]) apply to rash on the legs and arm twice daily x 1-2 weeks. 30 g 5 09/10/2019 Active insulin aspart (INSULIN ASPART) 100 UNIT/ML injection USE IN INSULIN PUMP UP TO 200 UNITS PER DAY 30 mL 7 09/13/2019 Active DULoxetine (CYMBALTA) 60 MG CPEPIndications:Fibr omyalgia,Moderate episode of recurrent major depressive disorder ([facility]),Primary osteoarthritis of both knees Take 1 [...] 10/14/2014 Overview: ICD-10 update of inactive term [place] filter in place 08/19/2014 History of pulmonary [...] Home Brooke Jose RN [address] [place] [address] [phone] 12/10/2019 Office Visit Family Medicine eKvin Whiteside, [address] [place] [address] [phone] 01/02/2020 Office Visit Pharmacy [facility] [place] [place] [address] 02/04/2020 Office Visit Dermatology Apple Kaminski MD [address] [place] [address], [place] [address] [phone] 02/07/2020 Office Visit Orthopedics Zack Teague DO [address] [place] [address] [phone] 02/26/2020 Office Visit Cardiology Rey Woodall MD [address] [place] [address] [phone] 05/08/2020 Office Visit Family Medicine Kevin Whiteside, DO [address] [place] [address] [phone] 11/27/2020 Office Visit Pulmonary Celsa Tafoya CRNP [address] [place] [address] [phone] Health Maintenance Due Date Last Done Comments Zoster Vaccines (3 of 3) 01/02/2020 11/07/2019, 11/24 Yearly B-12 03/14/2020 03/14/2019, 05/16/2018 DIABETES-EYE EXAM 04/05/2020 04/05/2019, (Done elsewhere), 12/18/2009, Additional history exists CKD GFR USE SMARTSET 13334 05/07/202011/07, 09/10/2019, 08/09/2019, Additional history exists DIABETES-HGBA1C EVERY 6 MONTHS 05/07/2020 11/07/2019, 08/09/2019, 03/14/2019, Additional history exists DIABETES-URINE MICROALBUMIN EVERY 12 MONTHS 05/24/2020 05/24/2019, 02/26/2019, 12/23/2018, Additional history exists BREAST CANCER SCREENING DISCUSSION YEARLY AGES 40-75 07/10/2020 07/10/2019, 06/23/2018, 05/09/2015, Additional history exists CKD HGB USE SMARTSET 30077 09/10/202009/10, 07/20/2019, 02/26/2019, Additional history exists CKD PHOS USE SMARTSET 08012 11/07/202010/27, 12/29/2017, 08/26/2009, Additional history exists DIABETES-FOOT [...] Documents on File Type Date Recorded Patient Glaucoma Specialist Expl 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
--- OUTSIDE RECORDS SUMMARY | 2023-06-01 05:33 | External Medical Summary | Summary of Care ---
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, NYHA class 1 and CKD stage 3 ([facility]) Allergies Active Allergy Reactions Severity Noted Date Comments Pollen 05/18/2019 Heparin 09/04/2009 Heparin Induced Thrombocytopenia Empagliflozin Other (Please comment) Medium 05/17/2018 3 yeast infections in 6 weeks after starting Morphine And Related 09/16/1997 Hallucinations Tetanus Toxoid Other (Please comment) 06/15/2011 Passed out documented as of this encounter (statuses as of 11/23/2019) Medications Medication Sig Dispensed Refills Start Date [...] 08/09/2019 Active Vitamin D, Ergocalciferol, 1.25 MG (91285 UT) CapsuleIndications:V itamin D deficiency Take 1 [...] of 7.0%-8.0% ([facility]) Take 1 Cap by mouth [...] type 2 nursing care encounter ([facility]),Uncontrolled type 2 diabetes mellitus with stage 3 chronic kidney disease, with long-term current use of insulin ([facility]) Inject 1.5 mg under the [...] as of this encounter (statuses as of 11/23/2019) Active Problems Problem Noted Date Primary osteoarthritis [...] 10/14/2014 Overview: ICD-10 update of inactive term [place] filter in place 08/19/2014 History of pulmonary [...] as of this encounter (statuses as of 11/23/2019) Resolved Problems Problem Noted Date Resolved Date [...] as of this encounter (statuses as of 11/23/2019) Immunizations Name Administration Dates Next Due Pneumococcal [...] Travel End documented as of this encounter H&P Notes * S[facility]a [facility] - 11/23/2019 4:52 PM EST LMOM for pt as a follow up to her pulmonary appointment per appt note. Pt is not scheduled for return with RNCM. Last nurse visit was October 18. Left [facility] number for pt to return call. documented in this encounter Plan of Treatment Upcoming Encounters Date Type Specialty Care Team Description 11/28/2019 Office Visit Pulmonary Celsa Tafoya CRNP [address] [place] [address] [address] [phone] 01/02/2020 Office Visit Pharmacy [facility] [place] [address] [place] [address] 02/04/2020 Office Visit Dermatology Apple Kaminski MD [address] [place] [address] [phone] 02/07/2020 Office Visit Orthopedics Zack Teague DO [address] [place] [address] [phone] 02/26/2020 Office Visit Cardiology Rey Woodall MD [address] [place] [address] [phone] 05/08/2020 Office Visit Family Medicine Kevin Whiteside, DO [address] [place] [address] [phone] Health Maintenance Due Date Last Done Comments Zoster Vaccines (3 of 3) 01/02/2020 11/07/2019, 11/24 Yearly B-12 03/14/2020 03/14/2019, 05/16/2018 DIABETES-EYE EXAM 04/05/2020 04/05/2019, (Done elsewhere), 12/18/2009, Additional history exists CKD GFR USE SMARTSET 61274 05/07/202011/07, 09/10/2019, 08/09/2019, Additional history exists DIABETES-HGBA1C EVERY 6 MONTHS 05/07/2020 11/07/2019, 08/09/2019, 03/14/2019, Additional history exists DIABETES-URINE MICROALBUMIN EVERY 12 MONTHS 05/24/2020 05/24/2019, 02/26/2019, 12/23/2018, Additional history exists BREAST CANCER SCREENING DISCUSSION YEARLY AGES 40-75 07/10/2020 07/10/2019, 06/23/2018, 05/09/2015, Additional history exists CKD HGB USE SMARTSET 57595 09/10/202009/10, 07/20/2019, 02/26/2019, Additional history exists CKD PHOS USE SMARTSET 78899 11/07/202010/27, 12/29/2017, 08/26/2009, Additional history exists DIABETES-FOOT [...] on File Type Date Recorded Patient Can Sealer Expl 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
--- OUTSIDE RECORDS SUMMARY | 2023-06-01 05:33 | External Medical Summary ---
Author Name Unknown Address [address] [facility] [place] [address] Phone Organization K0G:[facility] [employer] [address] [facility] [place] [address] Laboratory Report Ordering Provider Test Date Status MARYANN MILLAN 12/05/2019 10:03:00 Final Observation Date Value Abnormality Reference (Units ) Status BUN 12/05/2019 12:06 49 Above high normal 6-20 (mg/dL) Final Creatinine 12/05/2019 12:06 2.6 Above high normal 0.5- 1.0 (mg/dL) Final E Glom Filt Rate 12/05/2019 12:06 18.7 Below low normal >60 Final Performing Location [facility] [employer] [address] [facility] [place] [address]
--- OUTSIDE RECORDS SUMMARY | 2023-06-01 05:33 | External Medical Summary | Summary of Care ---
Author Name Unknown Organization [place] [address] Care Team Providers Care Ear Nose And Throat Specialist Name Role Phone Kevin Whiteside DO Primary Care Provider Reason for Visit * Reason Comments Acute body aches/bilateral lower abdominal pain/fatigue/general malaise/low grade intermittent fever/recent fall/L knee pain Encounter Details Date Type Department Care Team Description 11/30/2019 Office Visit [facility] [address] [place] [address] [id number] Deepa Ambriz MD [address] [place] [address] [phone] Lower abdominal pain*; Generalized weakness; Epigastric pain; Loss of appetite; Uncontrolled type 2 diabetes mellitus with stage 3 chronic kidney disease, with long-term current use of insulin (H[facility]); Vasculitis ([facility]) Allergies Active Allergy [...] 3 08/30/2018 Active Blood Glucose Monitoring Suppl ([employer]TOUCH ULTRA 2) w/Device KIT Use to [...] 08/09/2019 Active Vitamin D, Ergocalciferol, 1.25 MG (95366 UT) CapsuleIndications:V itamin D deficiency Take 1 [...] MODERATE (A) NEG BACTERIA, UA 26-50 (A) LTT751 /HPF WBC, UA 30-49 (A) U02 /HPF [...] HOLDER at [facility] KNEE ARTHROSCOPY/DEBRIDEMENT 07/[address] PERMANENT GASTROSTOMY TUBE 09/06/09 GASTROSTOMY WITH CONSTUCTION GASTRIC TUBE performed by AMADOU NUNEZ at [place] [facility] REMOVAL OF THYROID GLAND 06/15/2011 THYROIDECTOMY INCLUDING SUBSTERNAL THYROID CERVICAL APPROACH performed by DANNY HOLDER at OR [facility] REMOVE GALLBLADDER 09/06/09 CHOLECYSTECTOMY performed by AMADOU NUNEZ at OR [facility] REPAIR RECURRENT INCISIONAL HERNIA 1998 REVISION OF COLOSTOMY, SIMPLE 1998 SUTURE, LARGE INTESTINE W/COLOSTOMY 1996 perforation R colon with colostomy VENA CAVA FILTER/LIGATION/CLIP 08/19/09 [place] filter placement through the right femoral 08/19/[address] Lerma at [facility] Immunization History Administered Date(s) Administered [...] Tab 1 Vitamin D, Ergocalciferol, 1.25 MG (75548 UT) Capsule Take 1 Cap by mouth [...] insulin ([facility]) E11.22, E11.65, N18.3, Z79.4 Body [...] Tab 1 Vitamin D, Ergocalciferol, 1.25 MG (37099 UT) Capsule Take 1 Cap by mouth [...] instructions and agrees with plan of care. eDepa Ambriz MD 11/30/2019 * Sonja Samaniego LPN [...] grade intermittent fever. 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 who reportedly told her that she doesn't [...] Home Brooke Jose, RN [address] [place] [address] [phone] 12/10/2019 Office Visit Family Medicine Kevin Whiteside DO [address] [place] [address] [phone] 01/02/2020 Office Visit Pharmacy [facility] [place] [address] [facility] [place] [address] 02/04/2020 Office Visit Dermatology Apple Kaminski MD [address] [place] [address] [phone] 02/07/2020 Office Visit Orthopedics Zack Teague, DO [address] [place] [address] [phone] 02/26/2020 Office Visit Cardiology Rey Woodall MD [address] [facility] [place] [address] 05/08/2020 Office Visit Family Medicine Kevin Whiteside DO [address] [place] [address] 11/27/2020 Office Visit Pulmonary Celsa Tafoya CRNP [address] [facility] [place] [address] Health Maintenance Due Date Last Done Comments Zoster Vaccines (3 of 3) 01/02/2020 11/07/2019, 11/24 Yearly B-12 03/14/2020 03/14/2019, 05/16/2018 DIABETES-EYE EXAM 04/05/2020 04/05/2019, (Done elsewhere), 12/18/2009, Additional history exists CKD GFR USE SMARTSET 49097 05/07/202011/07, 09/10/2019, 08/09/2019, Additional history exists DIABETES-HGBA1C EVERY 6 MONTHS 05/07/2020 11/07/2019, 08/09/2019, 03/14/2019, Additional history exists DIABETES-URINE MICROALBUMIN EVERY 12 MONTHS 05/24/2020 05/24/2019, 02/26/2019, 12/23/2018, Additional history exists BREAST CANCER SCREENING DISCUSSION YEARLY AGES 40-75 07/10/2020 07/10/2019, 06/23/2018, 05/09/2015, Additional history exists CKD HGB USE SMARTSET 64422 09/10/202009/10, 07/20/2019, 02/26/2019, Additional history exists CKD PHOS USE SMARTSET 27741 11/07/202010/27, 12/29/2017, 08/26/2009, Additional history exists DIABETES-FOOT [...] on File Type Date Recorded Patient Chief Growth Officer Expl 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
--- OUTSIDE RECORDS SUMMARY | 2023-06-01 05:33 | External Medical Summary ---
Author Name Unknown Address Unknown Organization [facility] USE ONLY!!! Laboratory Report Ordering Provider Test Date Status MARYANN MILLAN 12/05/2019 10:00:00 Final Observation Date Value Abnormality Reference (Units ) Status Source 12/05/2019 10:03 CLEAN CATCH URINE Final Bacteria XXX Cult 12/06/2019 23:21 10,000 TO 100,000 COLONIES/ML KLEBSIELLA PNEUMONIAE Abnormal Final REPORT STATUS 12/07/2019 12:38 12/07/2019 FINAL Final Bacteria Islt Cult 12/06/2019 23:21 KLEBSIELLA PNEUMONIAE Abnormal Final Performing Location IT USE ONLY!!!
--- OUTSIDE RECORDS SUMMARY | 2023-06-01 05:34 | External Medical Summary | Summary of Care ---
Author Name Unknown Organization [place] [address] Care Team Providers Care Catalytic Case Operator Name Role Phone Stevo Kevin Ocampomelinda Primary Care Provider Reason for Visit * Reason Comments Acute past 3-5 days flared up..body aches everywhere. little nausea and headache and fatigue. has fibromyalgia Encounter Details Date Type Department Care Team Description 11/20/2019 Office Visit [facility] 132 [facility] [place] [address] Amadou Galeana MD 132 [facility] [place] [address] Primary osteoarthritis of left knee*; ELLIE (generalized anxiety disorder); Fibromyalgia; HTN, goal below 130/80; Type 2 diabetes mellitus with hemoglobin A1c goal of 7.0%-8.0% ([facility]) Allergies Active Allergy Reactions Severity Noted Date Comments Pollen 05/18/2019 Heparin 09/04/2009 Heparin Induced Thrombocytopenia Empagliflozin Other (Please comment) Medium 05/17/2018 3 yeast infections in 6 weeks after starting Morphine And Related 09/16/1997 Hallucinations Tetanus Toxoid Other (Please comment) 06/15/2011 Passed out documented as of this encounter (statuses as of 11/20/2019) Medications Medication Sig Dispensed Refills Start Date [...] 08/09/2019 Active Vitamin D, Ergocalciferol, 1.25 MG (23410 UT) CapsuleIndications:V itamin D deficiency Take 1 [...] Ac tive levalbuterol (XOPENEX) inhalation solution 1.25 mgIndications:VERDUZCO (dyspnea on exertion),Wheezing 1.25 mg NEBULIZER Q4H PRN 09/13/2019 Active ketorolac (TORADOL) 60 MG/2ML IM inj 60 mgIndications:Primary osteoarthritis of left knee 60 mg IM ONCE 11/20/2019 11/20/2019 Ended documented as of this encounter (statuses as of 11/20/2019) Active Problems Problem Noted Date Primary osteoarthritis [...] 10/14/2014 Overview: ICD-10 update of inactive term [place] filter in place 08/19/2014 History of pulmonary [...] as of this encounter (statuses as of 11/20/2019) Resolved Problems Problem Noted Date Resolved Date [...] as of this encounter (statuses as of 11/20/2019) Immunizations Name Administration Dates Next Due Pneumococcal [...] Sign Reading Time Taken Comments Blood Pressure 122/64 11/20/2019 8:22 AM EST Pulse 60 11/20/2019 8:22 AM EST Temperature 36.4 C (97.5 F) 11/20/2019 8:22 AM ES T Respiratory Rate 16 11/20/2019 8:22 AM EST Oxygen Saturation - - Inhaled Oxygen Concentration - - Weight 147.5 kg (325 lb 3.2 oz) 11/20/2019 8:22 AM EST Height 162.6 cm (5' 4") 11/20/2019 8:22 AM EST Body Mass Index 55.82 11/20/2019 8:22 AM EST documented in this encounter Progress Notes * Amadou Galeana MD - 11/20/2019 8:55 AM EST SUBJECTIVE: Stephanie Camp is a 64 year old female. CC: Chief Complaint Patient presents with Acute past 3-5 days flared up..body aches everywhere. little nausea and headache and fatigue. has fibromyalgia Nursing Notes: Ca Vasquez, CULTURAL ANTHROPOLOGY PROFESSOR 11/20/19 0838 Signed The patient has been properly identified by confirmation of name and date of . Chief Complaint Patient presents with Acute past 3-5 days flared up..body aches everywhere. little nausea and headache and fatigue. has fibromyalgia HPI: Here for left knee pain. She is a complicated 64 year old morbidly obese patient who is "awaiting" left knee surgery, however she still has to lose about 50 lbs and get her a1c down to a manageable level. She has significant depression as well as chronic pain from fibromyalgia. She is somewhat tearful today but consolable. She is discouraged that she has to improve her overall health in order to qualify for knee replacement. She is on a plethora of psychiatric medications. She also takes prn tramadol. 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 Nocturnal hypoxemia G47.34 ELISSA (obstructive sleep apnea) G47.33 Venous insufficiency I87.2 HTN, goal below 130/80 I10 History of pulmonary embolus (PE) Z86.711 Statin intolerance Z78.[address] Z95.828 Type 2 diabetes mellitus with hemoglobin A1c goal of 7.0%-8.0% ([facility]) E11.9 Fibromyalgia M79.7 Abnormality of gait R26.9 Restless legs syndrome G25.81 Gastroesophageal reflux disease with esophagitis K21.0 Uncontrolled type 2 diabetes mellitus with stage 3 chronic kidney disease, with long-term current use of insulin ([facility]) E11.22, E11.65, N18.3, Z79.4 Body mass index (BMI) of 50.0 to 59.9 in adult ([facility]) Z68.43 Controlled substance agreement signed Z79.899 Chronic diastolic congestive heart failure ([facility]) I50.32 Thoracic back pain M54.6 Mild episode of recurrent major depressive disorder ([facility]) F33.0 Lumbar radiculopathy M54.16 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, NYHA class 1 and CKD stage 3 ([facility]) I13.0, I50.30, N18.3 Chronic respiratory failure with hypoxia ([facility]) J96.11 Hyperparathyroidism, secondary renal ([facility]) N25.81 Vasculitis ([facility]) I77.6 Primary osteoarthritis of left knee M17.12 Past Surgical History: Procedure Laterality Date ARTHROPLASTY KNEE TOTAL Right 07/24/14 R COLONOSCOPY, DIAGNOSTIC (RECTUM) 02/18/2016 normal, repeat 10 yrs/[facility] COLONOSCOPY, GI REFERRAL OP 01/28/06 diverticulosis--repeat 10 years INCISION OF [place], PLANNED 06/03/2011 TRACHEOSTOMY PLANNED performed by DANNY HOLDER at [facility] KNEE ARTHROSCOPY/DEBRIDEMENT 07/[address] PERMANENT GASTROSTOMY TUBE 09/06/09 GASTROSTOMY WITH CONSTUCTION GASTRIC TUBE performed by AMADOU NUNEZ at [facility] REMOVAL OF THYROID GLAND 06/15/2011 THYROIDECTOMY INCLUDING SUBSTERNAL THYROID CERVICAL APPROACH performed by DANNY HOLDER at [facility] REMOVE GALLBLADDER 09/06/09 CHOLECYSTECTOMY performed by AMADOU NUNEZ at [facility] REPAIR RECURRENT INCISIONAL HERNIA 1998 REVISION OF COLOSTOMY, SIMPLE 1998 SUTURE, LARGE INTESTINE W/COLOSTOMY 1996 perforation R colon with colostomy VENA CAVA FILTER/LIGATION/CLIP 08/19/09 [place] filter placement through the right femoral 08/19/[address] 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 Dulaglutide (TRULICITY) 1.5 MG/0.5ML SOPN Inject 1.5 mg under the skin once a week. colchicine 0.6 MG Tablet Take 1/2 tab daily clonazePAM (KLONOPIN) 0.5 MG Tablet Take 1 Tab by mouth 2 times a day. Nortriptyline HCl (PAMELOR) 50 MG Capsule Take [...] OTHER MEDS Vitamin D, Ergocalciferol, 1.25 MG (79859 UT) Capsule Take 1 Cap by mouth [...] during all periods of sleep. Glucose Blood (ONETOUCH ULTRA BLUE) STRP Check [...] tablet daily Current Facility-Administered Medications for the 11/20/19 encounter (Office Visit) with Amadou Galeana MD Medication [COMPLETED] ketorolac (TORADOL) 60 MG/2ML IM inj 60 mg levalbuterol (XOPENEX) inhalation solution 1.25 mg levalbuterol (XOPENEX) inhalation solution 0.63 mg Review of patient's allergies indicates: Allergen Reactions Jardiance [Empagliflozin] Other (Please comment) 3 yeast infections in 6 weeks after starting Hay Fever [Pollen] Heparin Heparin Induced Thrombocytopenia Morphine And Related Hallucinations Tetanus Toxoid Other (Please comment) Passed out Extensive ROS Constitutional (f/c/wt/vision/hearing): Negative Resp (cough/sob/verduzco): Negative CV (cp/palp/fluttering/diaphoresis/verduzco/pnd):Negative GI (n/v/d/hrtburn): Negative Endo (hair/cold or heat intol/ 3 p's): Negative Neuro (shaking/weak/fatigu/parasthesi/): Negative Skin (rash/easy bruis/xerosis): Negative Psy (si/hi/halluc/): see above hpi (nocturia/hesit/drib/sexual review): Negative Lymph (swollen glands/b sx's/: Negative Msk: see hpi OBJECTIVE: BP 122/64 | Pulse 60 | Temp (Src) 97.5 (Tympanic) | Resp 16 | Ht 5' 4" (1.626m) | Wt 325 lbs 3.2 oz(147.510kg) | BMI 55.82 kg/m | BSA 2.58 m | LMP 03/11/2003 General: alert and obese Skin: skin color, texture, turgor are normal, no rashes or significant lesions Head: Normocephalic, No masses, lesions, tenderness or abnormalities Oropharynx: normal Eye Exam: PERRLA, EOMI, Conjunctiva are pink and non-injected, sclera clear Neck: supple, no adenopathy, no bruits, thyroid normal size, non-tender, without nodularity Heart: regular rate & rhythm, no murmurs and no gallops Lungs: chest symmetric with normal AP diameter, no chest deformities noted, no chest wall tenderness, lungs clear to auscultation Pulses: radial=2/4, carotid=2/4 w/o bruits, posterior tibial=2/4 Abdomen: abdomen soft, non-tender, normal bowel sounds and no masses or organomegaly Extremities: no joint deformities, effusion, or inflammation, no edema, no clubbing, no cyanosis ASSESSMENT/PLAN: Stephanie was seen today for acute. Diagnoses and all orders for this visit: Primary osteoarthritis of left knee - ketorolac (TORADOL) 60 MG/2ML IM inj 60 mg ELLIE (generalized anxiety disorder) Fibromyalgia HTN, goal below 130/80 Type 2 diabetes mellitus with hemoglobin A1c goal of 7.0%-8.0% ([facility]) Follow Up: Return if symptoms worsen or fail to improve. Amadou Galeana MD documented in this encounter Nursing Notes * Ca Vasquez CMA - 11/20/2019 8:24 AM EST The patient has been properly identified by confirmation of name and date of . Chief Complaint Patient presents with Acute past 3-5 days flared up..body aches everywhere. little nausea and headache and fatigue. has fibromyalgia documented in this encounter Plan of Treatment Upcoming Encounters Date Type Specialty Care Team Description 11/22/2019 Office Visit Pulmonary Celsa Tafoya CRNP [address] [place] [address] [phone] 11/23/2019 Scheduled Telephone [facility] Finishing Range Feeder [address] [place] [address] [phone] 01/02/2020 Office Visit Pharmacy [facility] [place] [address] [place] [address] 02/04/2020 Office Visit Dermatology Apple Kaminski MD [address] [place] [address], [place] [address] [phone] 02/07/2020 Office Visit Orthopedics Zack Teague, [address] [place] [address] [phone] 02/26/2020 Office Visit Cardiology Rey Woodall MD [address] [place] [address] [phone] 05/08/2020 Office Visit Family Medicine Kevin Whiteside, [address] [place] [address] [phone] Health Maintenance Due Date Last Done Comments Zoster Vaccines (3 of 3) 01/02/2020 11/07/2019, 11/24 Yearly B-12 03/14/2020 03/14/2019, 05/16/2018 DIABETES-EYE EXAM 04/05/2020 04/05/2019, (Done elsewhere), 12/18/2009, Additional history exists CKD GFR USE SMARTSET 00416 05/07/202011/07, 09/10/2019, 08/09/2019, Additional history exists DIABETES-HGBA1C EVERY 6 MONTHS 05/07/2020 11/07/2019, 08/09/2019, 03/14/2019, Additional history exists DIABETES-URINE MICROALBUMIN EVERY 12 MONTHS 05/24/2020 05/24/2019, 02/26/2019, 12/23/2018, Additional history exists BREAST CANCER SCREENING DISCUSSION YEARLY AGES 40-75 07/10/2020 07/10/2019, 06/23/2018, 05/09/2015, Additional history exists CKD HGB USE SMARTSET 90587 09/10/202009/10, 07/20/2019, 02/26/2019, Additional history exists CKD PHOS USE SMARTSET 69607 11/07/202010/27, 12/29/2017, 08/26/2009, Additional history exists DIABETES-FOOT [...] knee- Primary Primary localized osteoarthrosis, lower leg ELLIE (generalized anxiety disorder) Generalized anxiety disorder Fibromyalgia Mylagia and myositis, unspecified HTN, goal below 130/80 Unspecified essential hypertension Type 2 diabetes mellitus with hemoglobin A1c goal of 7.0%-8.0% ([facility]) documented in this encounter Administered Medications Inactive Administered Medications - up to 3 most recent administrations Medication Order MAR Action Action Date Dose Rate Site ketorolac (TORADOL) 60 MG/2ML IM inj 60 mg 60 mg, Intramuscular, ONCE, 11/20/19 at 0930, For 1 dose, , Given 11/20/2019 8:49 AM EST 60 mg Dorsogluteal Left documented in this encounter Advance Directives Documents on File Type Date Recorded Patient Neonatal Nurse Expl 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
--- OUTSIDE RECORDS SUMMARY | 2023-06-01 05:34 | External Medical Summary | Summary of Care ---
Author Name Unknown Organization [place] [address] Care Team Providers Care Foreclosure Paralegal Name Role Phone Kevin Whiteside DO Primary Care Provider Reason for Visit * Reason Comments [facility]: Maintenance Encounter Details Date Type Department Care Team Description 11/14/2019 Scheduled Telephone [facility] 132 [facility] [place] [address] [facility] 132 [facility] [place] [address] [phone] Allergies Active Allergy Reactions Severity Noted Date Comments Pollen 05/18/2019 Heparin 09/04/2009 Heparin Induced Thrombocytopenia Empagliflozin Other (Please comment) Medium 05/17/2018 3 yeast infections in 6 weeks after starting Morphine And Related 09/16/1997 Hallucinations Tetanus Toxoid Other (Please comment) 06/15/2011 Passed out documented as of this encounter (statuses as of 11/14/2019) Medications Medication Sig Dispensed Refills Start Date [...] 08/30/2018 Active Blood Glucose Monitoring Suppl (The Gifts ProjectTOUCH ULTRA 2) w/Device KIT Use to test [...] 08/09/2019 Active Vitamin D, Ergocalciferol, 1.25 MG (99572 UT) CapsuleIndications:V itamin D deficiency Take 1 [...] Pen Syringe Dosing Unit 5 11/07/2019 Active amoxicillin (AMOXIL) 500 MG CapsuleIndications:U TI symptoms Take 1 Cap by mouth 2 times a day for 5 days. 10 Cap 0 11/11/2019 0 Active Hospital, Clinic, or Other Facility Administered Medication Ordered Dose Route Frequency Start Date End Date Status levalbuterol (XOPENEX) inhalation solution 0.63 mgIndications:Wheezing 0.63 mg NEBULIZER Q4H PRN 09/12/2019 Ac tive levalbuterol (XOPENEX) inhalation solution 1.25 mgIndications:AVENDAÑO (dyspnea on exertion),Wheezing 1.25 mg NEBULIZER Q4H PRN 09/13/2019 Active documented as of this encounter (statuses as of 11/14/2019) Active Problems Problem Noted Date Chronic respiratory failure with hypoxia 11/07/2019 Hyperparathyroidism, secondary renal 08/2020 Vasculitis 11/07/2019 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, NYHA class 1 and CKD stage 3 05/14/2019 Other atherosclerosis of [place] arteries of extremities, left leg 02/26/2019 Lumbar radiculopathy 09/27/2018 Mild episode of recurrent [...] 09/13 Dyslipidemia 09/04/2009 Overview: Per Lipid Taxonomy. Primary localized osteoarthrosis, lower leg 07/04/2008 documented as of this encounter (statuses as of 11/14/2019) Resolved Problems Problem Noted Date Resolved Date Impetigo 09/27/2018 05/14/2019 Vaginal karmen 07/13/2018 08/26/2018 [...] protocol #14. ICD-10 update of inactive term Dyslipidemia, goal LDL below 160 08/16/2007 09/04/2009 [...] as of this encounter (statuses as of 11/14/2019) Immunizations Name Administration Dates Next Due Pneumococcal [...] Notes * Telephone Encounter - Saira Salmon [facility] Supply Cataloguer - 11/14/2019 2:46 PM EST LMOM for pt to call [facility] office to provide and update on uti s&s and if she has and is using herantibiotic. documented in this encounter Plan of Treatment Upcoming Encounters Date Type Specialty Care Team Description 11/22/2019 Office Visit Pulmonary Celsa Tafoya CRNP [address] [place] [address] [phone] 11/23/2019 Scheduled Telephone [facility] Saira Salmon [facility] [address] [place] [address] [address] [phone] 01/02/2020 Office Visit Pharmacy [facility] Jer[place] [address] [place] [address] 02/04/2020 Office Visit Dermatology Apple Kaminski MD [address] [place] [address], [place] [address] [phone] 02/07/2020 Office Visit Orthopedics Zack Teague DO [address] [place] [address] [phone] 02/26/2020 Office Visit Cardiology Rey Woodall MD [address] [place] [address] [phone] 05/08/2020 Office Visit Family Medicine Kevin Whiteside, [address] [place] [address] Health Maintenance Due Date Last Done Comments Zoster Vaccines (3 of 3) 01/02/2020 11/07/2019, 11/24 Yearly B-12 03/14/2020 03/14/2019, 05/16/2018 DIABETES-EYE EXAM 04/05/2020 04/05/2019, (Done elsewhere), 12/18/2009, Additional history exists CKD GFR USE SMARTSET 15546 05/07/202011/07, 09/10/2019, 08/09/2019, Additional history exists DIABETES-HGBA1C EVERY 6 MONTHS 05/07/2020 11/07/2019, 08/09/2019, 03/14/2019, Additional history exists DIABETES-URINE MICROALBUMIN EVERY 12 MONTHS 05/24/2020 05/24/2019, 02/26/2019, 12/23/2018, Additional history exists BREAST CANCER SCREENING DISCUSSION YEARLY AGES 40-75 07/10/2020 07/10/2019, 06/23/2018, 05/09/2015, Additional history exists CKD HGB USE SMARTSET 57737 09/10/202009/10, 07/20/2019, 02/26/2019, Additional history exists CKD PHOS USE SMARTSET 77467 11/07/202010/27, 12/29/2017, 08/26/2009, Additional history exists DIABETES-FOOT [...] Documents on File Type Date Recorded Patient Pattern Vault Clerk Expl 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
--- OUTSIDE RECORDS SUMMARY | 2023-06-01 05:34 | External Medical Summary | Summary of Care ---
Author Name Unknown Organization [place] [address] Care Team Providers Care Machine Maintenance Mechanic Name Role Phone Kevin Whiteside DO Primary Care Provider Reason for Visit * Reason Comments [facility]: Maintenance Encounter Details Date Type Department Care Team Description 11/12/2019 Telephone [facility] [address] [place] [address] [facility], Nurse [address] [place] [address] [phone] [facility]: Maintenance Allergies Active Allergy Reactions Severity Noted Date Comments Pollen 05/18/2019 Heparin 09/04/2009 Heparin Induced Thrombocytopenia Empagliflozin Other (Please comment) Medium 05/17/2018 3 yeast infections in 6 weeks after starting Morphine And Related 09/16/1997 Hallucinations Tetanus Toxoid Other (Please comment) 06/15/2011 Passed out documented as of this encounter (statuses as of 11/12/2019) Medications Medication Sig Dispensed Refills Start Date [...] 08/09/2019 Active Vitamin D, Ergocalciferol, 1.25 MG (54150 UT) CapsuleIndications:V itamin D deficiency Take 1 [...] goal of 7.0%-8.0% ([facility]) Take 1 Cap by mouth [...] Ac tive levalbuterol (XOPENEX) inhalation solution 1.25 mgIndications:AEVNDAÑO (dyspnea on exertion),Wheezing 1.25 mg NEBULIZER Q4H PRN 09/13/2019 Active documented as of this encounter (statuses as of 11/12/2019) Active Problems Problem Noted Date Chronic respiratory failure with hypoxia 11/07/2019 Hyperparathyroidism, secondary renal 08/2020 Vasculitis 11/07/2019 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, NYHA class 1 and CKD stage 3 05/14/2019 Other atherosclerosis of [place] arteries of extremities, left leg 02/26/2019 Lumbar [...] as of this encounter (statuses as of 11/12/2019) Resolved Problems Problem Noted Date Resolved Date [...] as of this encounter (statuses as of 11/12/2019) Immunizations Name Administration Dates Next Due Pneumococcal [...] Telephone Encounter - Shira Hernandez RN - 11/12/2019 3:47 PM EST Patient is calling [facility] to report that she is at the pharmacy and the prescription is not there. Prescription re-faxed to the pharmacy with confirmation. documented in this encounter Plan of Treatment Upcoming Encounters Date Type Specialty Care Team Description 11/22/2019 Office Visit Pulmonary Celsa Tafoya CRNP [address] [place] [address] [phone] 11/23/2019 Scheduled Telephone [facility] Saira, [facility] Health Financial Supervisor [address] [place] [address] [address] [phone] 01/02/2020 Office Visit Pharmacy [facility] [place] [address] [place] [address] 02/04/2020 Office Visit Dermatology Apple Kaminski MD [address] [place] [address], [place] [address] [phone] 02/07/2020 Office Visit Orthopedics Zack Teague DO [address] [place] [address] [phone] 02/26/2020 Office Visit Cardiology Rey Woodall MD [address] [place] [address] [phone] 05/08/2020 Office Visit Family Medicine Kevin Whiteside DO [address] [place] [address] [phone] Health Maintenance Due Date Last Done Comments Zoster Vaccines (3 of 3) 01/02/2020 11/07/2019, 11/24 Yearly B-12 03/14/2020 03/14/2019, 05/16/2018 DIABETES-EYE EXAM 04/05/2020 04/05/2019, (Done elsewhere), 12/18/2009, Additional history exists CKD GFR USE SMARTSET 70634 05/07/202011/07, 09/10/2019, 08/09/2019, Additional history exists DIABETES-HGBA1C EVERY 6 MONTHS 05/07/2020 11/07/2019, 08/09/2019, 03/14/2019, Additional history exists DIABETES-URINE MICROALBUMIN EVERY 12 MONTHS 05/24/2020 05/24/2019, 02/26/2019, 12/23/2018, Additional history exists BREAST CANCER SCREENING DISCUSSION YEARLY AGES 40-75 07/10/2020 07/10/2019, 06/23/2018, 05/09/2015, Additional history exists CKD HGB USE SMARTSET 04996 09/10/202009/10, 07/20/2019, 02/26/2019, Additional history exists CKD PHOS USE SMARTSET 23238 11/07/202010/27, 12/29/2017, 08/26/2009, Additional history exists DIABETES-FOOT [...] Documents on File Type Date Recorded Patient Nutrition Aide Expl 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
--- OUTSIDE RECORDS SUMMARY | 2023-06-01 05:34 | External Medical Summary | Summary of Care ---
Author Name Unknown Organization [facility] [place] [address] Care Team Providers Care Meat Supervisor Name Role Phone Sergey Whitesideronit Ocampomelinda Primary Care Provider Reason for Visit * Reason Comments [facility]: Maintenance urine fol low up Encounter Details Date Type Department Care Team Description 11/10/2019 Scheduled Telephone [facility] [address] [facility] [place] [address] Tasha Woods, RN 132 [place] [address] [phone] Allergies Active Allergy Reactions Severity Noted Date Comments Pollen 05/18/2019 Heparin 09/04/2009 Heparin Induced Thrombocytopenia Empagliflozin Other (Please comment) Medium 05/17/2018 3 yeast infections in 6 weeks after starting Morphine And Related 09/16/1997 Hallucinations Tetanus Toxoid Other (Please comment) 06/15/2011 Passed out documented as of this encounter (statuses as of 11/10/2019) Medications Medication Sig Dispensed Refills Start Date [...] 3 08/30/2018 Active Blood Glucose Monitoring Suppl (PlanGridTOUCH ULTRA 2) w/Device KIT Use to test [...] 08/09/2019 Active Vitamin D, Ergocalciferol, 1.25 MG (97671 UT) CapsuleIndications:V itamin D deficiency Take 1 [...] Pen Syringe Dosing Unit 5 11/07/2019 Active Hospital, Clinic, or Other Facility Administered Medication Ordered Dose Route Frequency Start Date End Date Status levalbuterol (XOPENEX) inhalation solution 0.63 mgIndications:Wheezing 0.63 mg NEBULIZER Q4H PRN 09/12/2019 Ac tive levalbuterol (XOPENEX) inhalation solution 1.25 mgIndications:AVENDAÑO (dyspnea on exertion),Wheezing 1.25 mg NEBULIZER Q4H PRN 09/13/2019 Active documented as of this encounter (statuses as of 11/10/2019) Active Problems Problem Noted Date Chronic respiratory failure with hypoxia 11/07/2019 Hyperparathyroidism, secondary renal 08/2020 Vasculitis 11/07/2019 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 Explained that based on the notes from yesterday, the physician is awaiting results from the culture. The urine was collected yesterday afternoon and dropped off at [facility] by RN. Only a Microscopic has been completed which is positive for bacteria. No urine was sent to [place] for a urine culture - this was confirmed with a phone call to lab in [place] by this CM. If a culture is needed, another sample will need to be picked up from patient. Dr. Lechuga - do you want to order an abx for this patient based on the Microscopic? * Telephone Encounter - Tasha Woods RN - 11/10/2019 11:58 AM EST Phone call to patient for follow up for possible UTI. Urine was picked up and delivered to lab. As per Epic, urine was positive for bacteria with the UA. No abx ordered yet by ordering provider. Urine Culture ordered as well. Spoke with patient. Patient denies any confusion, burning, frequency or fever. She is not symptomatic. documented in this encounter Plan of Treatment Upcoming Encounters Date Type Specialty Care Team Description 11/11/2019 Scheduled Telephone [facility] Linda Wilkinson RN [address] [place] [address] [phone] 11/22/2019 Office Visit Pulmonary Celsa Tafoya CRNP [address] [place] [address] [phone] 11/23/2019 Scheduled Telephone [facility] [place], Saira, Community Health Food Safety Coordinator [address] [place] [address] [phone] 01/02/2020 Office Visit Pharmacy [facility] [place] [address] [place] [address] 02/04/2020 Office Visit Dermatology Apple Kaminski MD [address] [place] [address], [place] [address] [phone] 02/07/2020 Office Visit Orthopedics Zack Teague, [address] [place] [address] [phone] 02/26/2020 Office Visit Cardiology Rey Woodall MD [address] [place] [address] [phone] 05/08/2020 Office Visit Family Medicine Kevin Whiteside DO [address] [place] [address] [phone] Health Maintenance Due Date Last Done Comments Zoster Vaccines (3 of 3) 01/02/2020 11/07/2019, 11/24 Yearly B-12 03/14/2020 03/14/2019, 05/16/2018 DIABETES-EYE EXAM 04/05/2020 04/05/2019, (Done elsewhere), 12/18/2009, Additional history exists CKD GFR USE SMARTSET 02824 05/07/202011/07, 09/10/2019, 08/09/2019, Additional history exists DIABETES-HGBA1C EVERY 6 MONTHS 05/07/2020 11/07/2019, 08/09/2019, 03/14/2019, Additional history exists DIABETES-URINE MICROALBUMIN EVERY 12 MONTHS 05/24/2020 05/24/2019, 02/26/2019, 12/23/2018, Additional history exists BREAST CANCER SCREENING DISCUSSION YEARLY AGES 40-75 07/10/2020 07/10/2019, 06/23/2018, 05/09/2015, Additional history exists CKD HGB USE SMARTSET 13755 09/10/202009/10, 07/20/2019, 02/26/2019, Additional history exists CKD PHOS USE SMARTSET 21353 11/07/202010/27, 12/29/2017, 08/26/2009, Additional history exists DIABETES-FOOT [...] Documents on File Type Date Recorded Patient Pedodontist Expl 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
--- OUTSIDE RECORDS SUMMARY | 2023-06-01 05:34 | External Medical Summary | Summary of Care ---
Author Name Unknown Organization [place] [address] Care Team Providers Care Bread Wrapper Operator Name Role Phone Kevin Whiteside DO Primary Care Provider Reason for Visit * Reason Comments [facility]: Maintenance Encounter Details Date Type Department Care Team Description 11/13/2019 Telephone [facility] [address] [place] [address] [facility], Nurse [address] [place] [address] [phone] [facility]: Maintenance Allergies Active Allergy Reactions Severity Noted Date Comments Pollen 05/18/2019 Heparin 09/04/2009 Heparin Induced Thrombocytopenia Empagliflozin Other (Please comment) Medium 05/17/2018 3 yeast infections in 6 weeks after starting Morphine And Related 09/16/1997 Hallucinations Tetanus Toxoid Other (Please comment) 06/15/2011 Passed out documented as of this encounter (statuses as of 11/13/2019) Medications Medication Sig Dispensed Refills Start Date [...] 08/09/2019 Active Vitamin D, Ergocalciferol, 1.25 MG (23090 UT) CapsuleIndications:V itamin D deficiency Take 1 [...] as of this encounter (statuses as of 11/13/2019) Active Problems Problem Noted Date Chronic respiratory failure with hypoxia 11/07/2019 Hyperparathyroidism, secondary renal 08/2020 Vasculitis 11/07/2019 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 States that the pharmacy still has not received the script for Amoxacillin. Re faxed script to [facility]. Call placed to [facility]. Confirmed receipt of faxed script. documented in this encounter Plan of Treatment Upcoming Encounters Date Type Specialty Care Team Description 11/14/2019 Scheduled Telephone [facility] [address] [place] [address] [phone] 11/22/2019 Office Visit Pulmonary Celsa Tafoya CRNP [address] [place] [address] [phone] 11/23/2019 Scheduled Telephone [facility] [address] [place] [address] [phone] 01/02/2020 Office Visit Pharmacy [facility] [place] [address] [place] [address] 02/04/2020 Office Visit Dermatology Apple Kaminski MD [address] [place] [address], [place] [address] [phone] 02/07/2020 Office Visit Orthopedics Zack Teague DO [address] [place] [address] [phone] 02/26/2020 Office Visit Cardiology Rey Woodall MD [address] [place] [address] [phone] 05/08/2020 Office Visit Family Medicine Kevin Whiteside DO [address] [place] [address] [phone] Health Maintenance Due Date Last Done Comments Zoster Vaccines (3 of 3) 01/02/2020 11/07/2019, 11/24 Yearly B-12 03/14/2020 03/14/2019, 05/16/2018 DIABETES-EYE EXAM 04/05/2020 04/05/2019, (Done elsewhere), 12/18/2009, Additional history exists CKD GFR USE SMARTSET 27126 05/07/202011/07, 09/10/2019, 08/09/2019, Additional history exists DIABETES-HGBA1C EVERY 6 MONTHS 05/07/2020 11/07/2019, 08/09/2019, 03/14/2019, Additional history exists DIABETES-URINE MICROALBUMIN EVERY 12 MONTHS 05/24/2020 05/24/2019, 02/26/2019, 12/23/2018, Additional history exists BREAST CANCER SCREENING DISCUSSION YEARLY AGES 40-75 07/10/2020 07/10/2019, 06/23/2018, 05/09/2015, Additional history exists CKD HGB USE SMARTSET 56461 09/10/202009/10, 07/20/2019, 02/26/2019, Additional history exists CKD PHOS USE SMARTSET 49699 11/07/202010/27, 12/29/2017, 08/26/2009, Additional history exists DIABETES-FOOT [...] Documents on File Type Date Recorded Patient Pompom Maker Expl 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
--- OUTSIDE RECORDS SUMMARY | 2023-06-01 05:34 | External Medical Summary | Summary of Care ---
Author Name Unknown Organization [place] [address] Care Team Providers Care Storeroom Attendant Name Role Phone Sergey Whitesideronit Ocampomelinda Primary Care Provider Reason for Visit * Reason Comments [facility]: Maintenance urine fol low up Encounter Details Date Type Department Care Team Description 11/10/2019 Scheduled Telephone [facility] 132 [facility] [place] [address] Tasha Woods, RN 132 [place] [address] [phone] UTI symptoms* Allergies Active Allergy Reactions Severity Noted Date Comments Pollen 05/18/2019 Heparin 09/04/2009 Heparin Induced Thrombocytopenia Empagliflozin Other (Please comment) Medium 05/17/2018 3 yeast infections in 6 weeks after starting Morphine And Related 09/16/1997 Hallucinations Tetanus Toxoid Other (Please comment) 06/15/2011 Passed out documented as of this encounter (statuses as of 11/11/2019) Medications Medication Sig Dispensed Refills Start Date [...] 08/09/2019 Active Vitamin D, Ergocalciferol, 1.25 MG (93436 UT) CapsuleIndications:V itamin D deficiency Take 1 [...] of 7.0%-8.0% ([facility]) Take 1 Cap by mouth 3 [...] of insulin ([facility]) Inject 1.5 mg under the skin [...] as of this encounter (statuses as of 11/11/2019) Active Problems Problem Noted Date Chronic respiratory failure with hypoxia 11/07/2019 Hyperparathyroidism, secondary renal 08/2020 Vasculitis 11/07/2019 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, NYHA class 1 and CKD stage 3 05/14/2019 Other atherosclerosis of [place] arteries of extremities, left leg 02/26/2019 Lumbar [...] as of this encounter (statuses as of 11/11/2019) Resolved Problems Problem Noted Date Resolved Date [...] as of this encounter (statuses as of 11/11/2019) Immunizations Name Administration Dates Next Due Pneumococcal [...] /1997 Smokeless Tobacco: Never Used Alcohol Use Drinks/Week [...] encounter Miscellaneous Notes * Addendum Note - Amadou Grayson DO - 11/11/2019 2:59 PM EST Addended by: AMADOU GRAYSON on: 11/11/2019 02:59 PM Modules accepted: Orders * Telephone Encounter - Amadou Grayson DO - 11/11/2019 2:43 PM EST [facility] Remote [facility] Collaboration Phone Encounter Reviewed patient's chart as it pertains to necessary information. Please see below for any advice given and associated orders: ICD-10-CM 1. UTI symptoms R39.9 Plan: Medications: 1. Amoxicillin 500 mg po caps Sig:Take 1 cap by mouth 2 times a day for 5 days. I would recommend to the receiving provider to have the following addressed and/or completed To Do for pt's care team: Reviewed prior urine cultures - + from 07/23/19 w/ similar UA findings and sensitive to PCN - Amoxicillin sent in Routed to pt's [facility] Care Team Amadou Grayson DO Remote Medical Collaborator - [facility] 11/11/2019 * Telephone Encounter - Tasha Woods RN - 11/10/2019 5:04 PM EST Return phone call to patient. Explained that based on the notes from yesterday, the physician is awaiting results from the culture. The urine was collected yesterday afternoon and dropped off at [facility] by RN. Only a Microscopic has been completed which is positive for bacteria. No urine was sent to [place] for a urine culture - this was confirmed with a phone call to lab in [place] by this CM. If a culture is needed, another sample will need to be picked up from patient. Dr. Grayson - do you want to order an [...] Celsa Tafoya CRNP [address] [place] [address] [phone] 11/23/2019 [facility]uled Tele[facility] Home Furnishings Sales 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 [address] [place] [address] [phone] 01/02/2020 Office Visit Pharmacy [facility] [address] [place] [address] 02/04/2020 Office Visit Dermatology Apple Kaminski MD [address] [place] [address], [place] [address] [phone] 02/07/2020 Office Visit Orthopedics Zack Teague DO [address] [place] [address] [phone] 02/26/2020 Office Visit Cardiology Rey Woodall MD [address] [place] [address] [phone] 05/08/2020 Office Visit Family Medicine Kevin Whiteside, [address] [place] [address] [phone] Health Maintenance Due Date Last Done Comments Zoster Vaccines (3 of 3) 01/02/2020 11/07/2019, 11/24 Yearly B-12 03/14/2020 03/14/2019, 05/16/2018 DIABETES-EYE EXAM 04/05/2020 04/05/2019, (Done elsewhere), 12/18/2009, Additional history exists CKD GFR USE SMARTSET 32091 05/07/202011/07, 09/10/2019, 08/09/2019, Additional history exists DIABETES-HGBA1C EVERY 6 MONTHS 05/07/2020 11/07/2019, 08/09/2019, 03/14/2019, Additional history exists DIABETES-URINE MICROALBUMIN EVERY 12 MONTHS 05/24/2020 05/24/2019, 02/26/2019, 12/23/2018, Additional history exists BREAST CANCER SCREENING DISCUSSION YEARLY AGES 40-75 07/10/2020 07/10/2019, 06/23/2018, 05/09/2015, Additional history exists CKD HGB USE SMARTSET 31163 09/10/202009/10, 07/20/2019, 02/26/2019, Additional history exists CKD PHOS USE SMARTSET 12109 11/07/202010/27, 12/29/2017, 08/26/2009, Additional history exists DIABETES-FOOT [...] of this encounter Visit Diagnoses Diagnosis UTI symptoms- Primary Other symptoms involving urinary system documented in this encounter Advance Directives Documents on File Type Date Recorded Patient Metal Trimmer Expl 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
--- OUTSIDE RECORDS SUMMARY | 2023-06-01 05:34 | External Medical Summary | Summary of Care ---
Author Name Unknown Organization [facility] [place] [address] Care Team Providers Care Business Analytics Manager Name Role Phone Stevo Kevin Ocampomelinda Primary Care Provider Reason for Visit * Reason Comments [facility]: Maintenance Encounter Details Date Type Department Care Team Description 11/11/2019 Scheduled Telephone [facility] 132 [facility] [place] [address] Linda Wilkinson, RN 132 [facility] [place] [address] [phone] Allergies Active Allergy Reactions Severity Noted Date [...] 3 08/30/2018 Active Blood Glucose Monitoring Suppl (Urban MatrixTOUCH ULTRA 2) w/Device KIT Use to test [...] 08/09/2019 Active Vitamin D, Ergocalciferol, 1.25 MG (04294 UT) CapsuleIndications:V itamin D deficiency Take 1 [...] CKD stage 3 05/14/2019 Other atherosclerosis of [place] arteries of extremities, left leg 02/26/2019 Lumbar [...] Telephone Encounter - Linda Wilkinson RN - 11/11/2019 3:58 PM EST Pt had urine specimen obtained on 11/09/19 as ordered from Dermatology / Apple Kaminski appt on 10/29/19. As per note, this was ordered along with a BMP to make sure no renal involvement. Ref Range & Units 2d ago BACTERIA, UA RMD126 /HPF >200Abnormal WBC, UA U02 /HPF 20-29Abnormal RBC, UA U02 /HPF 0-2 HYALINE CAST,UA UM1 /LPF 1-4 Resulting Agency [id number] Pt reports she has intermittant pressure and burning. Pt denies any fevers Per Tasha Woods RN noted yesterday, a culture was not run. Pt will need another specimen obtained if a culture is wanted. Thank you! documented in this encounter Plan of Treatment Upcoming Encounters Date Type Specialty Care Team Description 11/22/2019 Office Visit Pulmonary Celsa Tafoya CRNP [address] [place] [address] [phone] 11/23/2019 Scheduled Telephone [facility] Saira Salmon [facility] Skate Boarder [address] [place] [address] [phone] 01/02/2020 Office Visit Pharmacy [facility] [place] [address] [place] [address] 02/04/2020 Office Visit Dermatology Apple Kaminski MD [address] [place] [place] [address] [phone] 02/07/2020 Office Visit Orthopedics Zack Teague, DO [address] [place] [address] [phone] 02/26/2020 Office Visit Cardiology Rey Woodall MD [address] [place] [address] [phone] 05/08/2020 Office Visit Family Medicine Kevin Whiteside, DO [address] [place] [address] [phone] Health Maintenance Due Date Last Done Comments Zoster Vaccines (3 of 3) 01/02/2020 11/07/2019, 11/24 Yearly B-12 03/14/2020 03/14/2019, 05/16/2018 DIABETES-EYE EXAM 04/05/2020 04/05/2019, (Done elsewhere), 12/18/2009, Additional history exists CKD GFR USE SMARTSET 39592 05/07/202011/07, 09/10/2019, 08/09/2019, Additional history exists DIABETES-HGBA1C EVERY 6 MONTHS 05/07/2020 11/07/2019, 08/09/2019, 03/14/2019, Additional history exists DIABETES-URINE MICROALBUMIN EVERY 12 MONTHS 05/24/2020 05/24/2019, 02/26/2019, 12/23/2018, Additional history exists BREAST CANCER SCREENING DISCUSSION YEARLY AGES 40-75 07/10/2020 07/10/2019, 06/23/2018, 05/09/2015, Additional history exists CKD HGB USE SMARTSET 33439 09/10/202009/10, 07/20/2019, 02/26/2019, Additional history exists CKD PHOS USE SMARTSET 21211 11/07/202010/27, 12/29/2017, 08/26/2009, Additional history exists DIABETES-FOOT [...] Documents on File Type Date Recorded Patient School Traffic Supervisor Expl 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
--- OUTSIDE RECORDS SUMMARY | 2023-06-01 05:34 | External Medical Summary | Summary of Care ---
Author Name Unknown Organization [place] [address] Care Team Providers Care Textile Engineer Name Role Phone Stevo Kevin Ocampomelinda Primary Care Provider Reason for Visit * Reason Comments [facility]: Acute uti, taking abx ? Returning Call Encounter Details Date Type Department Care Team Description 11/12/2019 Scheduled Telephone [facility] [address] [facility] [place] [address] Brooke Jose, RN 132 [place] [address] [phone] Benign hypertensive heart and kidney disease with [...] 08/09/2019 Active Vitamin D, Ergocalciferol, 1.25 MG (29361 UT) CapsuleIndications:V itamin D deficiency Take 1 [...] type 2 nursing care encounter ([facility]),Uncontrolled type 2 diabetes mellitus with stage [...] CKD stage 3 05/14/2019 Other atherosclerosis of [place] arteries of extremities, left leg 02/26/2019 Lumbar [...] encounter Miscellaneous Notes * Telephone Encounter - Irina Mejía OSA - 11/12/2019 8:44 AM EST Pt called back and has not yet picked up prescription but stated she will later today. Pt wants to know if her urine specimen picked up by the visiting home nurse was received and what are those test results? Please call Pt back and advise at [phone] * Telephone Encounter - Brooke Jose RN - 11/12/2019 8:22 AM EST T/c to pt to f/u uti Has not yet picked up abx Informed Rx for abx sent to [facility] Will be able to picking table worker and start today Agreed to call with worsening s/s Will f/u Tuesday via phone. documented in this encounter Plan of Treatment Upcoming Encounters Date Type Specialty Care Team Description 11/22/2019 Office Visit Pulmonary Celsa Tafoya CRNP [address] [place] [address] [phone] 11/23/2019 Scheduled Telephone [facility] Saira [place], Community [facility] Shingle Grader [address] [place] [address] [phone] 01/02/2020 Office Visit Pharmacy [facility] [place] [address] [place] [address] 02/04/2020 Office Visit Dermatology Apple Kaminski MD [address] [facility] [place] [address] [phone] 02/07/2020 Office Visit Orthopedics Zack Teague, DO [address] [place] [address] [phone] 02/26/2020 Office Visit Cardiology Rey Woodall MD [address] [place] [address] [phone] 05/08/2020 Office Visit Family Medicine Kevin Whiteside, DO [address] [place] [address] [phone] Health Maintenance Due Date Last Done Comments Zoster Vaccines (3 of 3) 01/02/2020 11/07/2019, 11/24 Yearly B-12 03/14/2020 03/14/2019, 05/16/2018 DIABETES-EYE EXAM 04/05/2020 04/05/2019, (Done elsewhere), 12/18/2009, Additional history exists CKD GFR USE SMARTSET 89356 05/07/202011/07, 09/10/2019, 08/09/2019, Additional history exists DIABETES-HGBA1C EVERY 6 MONTHS 05/07/2020 11/07/2019, 08/09/2019, 03/14/2019, Additional history exists DIABETES-URINE MICROALBUMIN EVERY 12 MONTHS 05/24/2020 05/24/2019, 02/26/2019, 12/23/2018, Additional history exists BREAST CANCER SCREENING DISCUSSION YEARLY AGES 40-75 07/10/2020 07/10/2019, 06/23/2018, 05/09/2015, Additional history exists CKD HGB USE SMARTSET 61420 09/10/202009/10, 07/20/2019, 02/26/2019, Additional history exists CKD PHOS USE SMARTSET 41818 11/07/202010/27, 12/29/2017, 08/26/2009, Additional history exists DIABETES-FOOT [...] Documents on File Type Date Recorded Patient Air And Missile Defense Crewmember Expl 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
--- OUTSIDE RECORDS SUMMARY | 2023-06-01 05:34 | External Medical Summary | Summary of Care ---
Author Name Unknown Organization [place] [address] Care Team Providers Care Scrap Baller Name Role Phone Stevo Kevin Ocampomelinda Primary Care Provider Reason for Visit * Reason Comments [facility]: Acute uti, taking abx ? Encounter Details Date Type Department Care Team Description 11/12/2019 Scheduled Telephone [facility] [address] [place] [address] Brooke Jose, RN [address] [place] [address] [phone] Benign hypertensive heart and kidney disease with [...] 08/09/2019 Active Vitamin D, Ergocalciferol, 1.25 MG (49082 UT) CapsuleIndications:V itamin D deficiency Take 1 [...] colchicine 0.6 MG TabletIndications:Le ukocytoclastic vasculitis ([facility]) Take 1/2 tab daily 45 Tab 0 10/29/2019 Active Dulaglutide (TRULICITY) 1.5 MG/0.5ML SOPNIndications:DM type 2 nursing care encounter ([facility]),Uncontrolled type 2 diabetes mellitus with stage 3 chronic kidney disease, with long-term current use of insulin ([facility]) Inject 1.5 mg under the skin [...] CKD stage 3 05/14/2019 Other atherosclerosis of [place] arteries of extremities, left leg 02/26/2019 Lumbar [...] 10/14/2014 Overview: ICD-10 update of inactive term [place] filter in place 08/19/2014 History of pulmonary [...] to [place] Will be able to leaf size picker and start today Agreed to call with worsening s/s Will f/u Tuesday via phone. documented in this encounter Plan of Treatment Upcoming Encounters Date Type Specialty Care Team Description 11/22/2019 Office Visit Pulmonary Celsa Tafoya CRNP [address] [address] [phone] 11/23/2019 Scheduled Telephone [facility] [place], [place], [facility] Pony Roll Finisher [address] [address] [phone] 01/02/2020 Office Visit Pharmacy [facility] [place] [address] [address] 02/04/2020 Office Visit Dermatology Apple Kaminski MD [address] [place] [address], [place] [address] [phone] 02/07/2020 Office Visit Orthopedics Zack Teague DO [address] [address] [phone] 02/26/2020 Office Visit Cardiology Rey Woodall MD [address] [address] 05/08/2020 Office Visit Family Medicine Kevin Whiteside DO [address] [address] [phone] Health Maintenance Due Date Last Done Comments Zoster Vaccines (3 of 3) 01/02/2020 11/07/2019, 11/24 Yearly B-12 03/14/2020 03/14/2019, 05/16/2018 DIABETES-EYE EXAM 04/05/2020 04/05/2019, (Done elsewhere), 12/18/2009, Additional history exists CKD GFR USE SMARTSET 45464 05/07/202011/07, 09/10/2019, 08/09/2019, Additional history exists DIABETES-HGBA1C EVERY 6 MONTHS 05/07/2020 11/07/2019, 08/09/2019, 03/14/2019, Additional history exists DIABETES-URINE MICROALBUMIN EVERY 12 MONTHS 05/24/2020 05/24/2019, 02/26/2019, 12/23/2018, Additional history exists BREAST CANCER SCREENING DISCUSSION YEARLY AGES 40-75 07/10/2020 07/10/2019, 06/23/2018, 05/09/2015, Additional history exists CKD HGB USE SMARTSET 24724 09/10/202009/10, 07/20/2019, 02/26/2019, Additional history exists CKD PHOS USE SMARTSET 50171 11/07/202010/27, 12/29/2017, 08/26/2009, Additional history exists DIABETES-FOOT [...] on File Type Date Recorded Patient Monitor Tech Expl 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
--- OUTSIDE RECORDS SUMMARY | 2023-06-01 05:34 | External Medical Summary | Summary of Care ---
Author Name Unknown Organization [facility] [place] [address] Care Team Providers Care Supervisor Ornamental Ironworking Name Role Phone Stevo Kevin Ocampomelinda Primary Care Provider Reason for Visit * Reason Comments [facility]: Maintenance Encounter Details Date Type Department Care Team Description 11/11/2019 Scheduled Telephone [facility] [address] [facility] [place] [address] Linda Wilkinson, RN [address] [facility] [place] [address] [phone] Allergies Active Allergy Reactions Severity Noted Date [...] 3 08/30/2018 Active Blood Glucose Monitoring Suppl (SuperCloudTOUCH ULTRA 2) w/Device KIT Use to test [...] 08/09/2019 Active Vitamin D, Ergocalciferol, 1.25 MG (34369 UT) CapsuleIndications:V itamin D deficiency Take 1 [...] CKD stage 3 05/14/2019 Other atherosclerosis of [place] arteries of extremities, left leg 02/26/2019 Lumbar [...] encounter Miscellaneous Notes * Telephone Encounter - Lexus Kendrick DO - 11/11/2019 6:52 PM EST See other encounters. She is now on amoxil, empiric treatment for evidence uti. Lexus Kendrick DO * Telephone Encounter - Linda Wilkinson RN - 11/11/2019 3:58 PM EST Pt had urine specimen obtained on 11/09/19 as ordered from Dermatology / Apple Kaminski appt on 10/29/19. As per note, this was ordered along with a BMP to make sure no renal involvement. Ref Range & Units 2d ago BACTERIA, UA KMV268 /HPF >200Abnormal WBC, UA U02 /HPF 20-29Abnormal [...] Pulmonary Celsa Tafoya CRNP [address] [address] [phone] 11/23/2019 Scheduled Telephone [facility] [place], [facility] Health Apprentice Machinist Outside [address] [address] 01/02/2020 Office Visit Pharmacy [place] [place] [address] [address] 02/04/2020 Office Visit Dermatology Apple Kaminski MD [address] [place] [address] [phone] 02/07/2020 Office Visit Orthopedics Zack Teague, [address] [address] [phone] 02/26/2020 Office Visit Cardiology Rey Woodall MD [address] [address] [phone] 05/08/2020 Office Visit Family Medicine Kevin Whiteside, [address] [address] [phone] Health Maintenance Due Date Last Done Comments Zoster Vaccines (3 of 3) 01/02/2020 11/07/2019, 11/24 Yearly B-12 03/14/2020 03/14/2019, 05/16/2018 DIABETES-EYE EXAM 04/05/2020 04/05/2019, (Done elsewhere), 12/18/2009, Additional history exists CKD GFR USE SMARTSET 57755 05/07/202011/07, 09/10/2019, 08/09/2019, Additional history exists DIABETES-HGBA1C EVERY 6 MONTHS 05/07/2020 11/07/2019, 08/09/2019, 03/14/2019, Additional history exists DIABETES-URINE MICROALBUMIN EVERY 12 MONTHS 05/24/2020 05/24/2019, 02/26/2019, 12/23/2018, Additional history exists BREAST CANCER SCREENING DISCUSSION YEARLY AGES 40-75 07/10/2020 07/10/2019, 06/23/2018, 05/09/2015, Additional history exists CKD HGB USE SMARTSET 75837 09/10/202009/10, 07/20/2019, 02/26/2019, Additional history exists CKD PHOS USE SMARTSET 87575 11/07/202010/27, 12/29/2017, 08/26/2009, Additional history exists DIABETES-FOOT [...] Documents on File Type Date Recorded Patient Golf Sales Associate Expl anation Advanced Directive 08/22/2009 [...]
--- OUTSIDE RECORDS SUMMARY | 2023-06-01 05:34 | External Medical Summary | Summary of Care ---
Author Name Unknown Organization [place] [address] Care Team Providers Care Amusement Or Recreation Card Checker Name Role Phone Sergey Whitesideronit Ocampomelinda Primary Care Provider Reason for Visit * Reason Comments [facility]: Maintenance urine fol low up Encounter Details Date Type Department Care Team Description 11/10/2019 Scheduled Telephone [facility] [address] [facility] [place] [address] Tasha Woods, RN [address] [place] [address] [phone] Allergies Active Allergy Reactions Severity Noted Date [...] 3 08/30/2018 Active Blood Glucose Monitoring Suppl (OombaTOUCH ULTRA 2) w/Device KIT Use to test [...] 08/09/2019 Active Vitamin D, Ergocalciferol, 1.25 MG (86151 UT) CapsuleIndications:V itamin D deficiency Take 1 [...] goal of 7.0%-8.0% ([facility]) Take 1 Cap by mouth 3 [...] use of insulin ([facility]) Inject 1.5 mg under the skin [...] CKD stage 3 05/14/2019 Other atherosclerosis of [place] arteries of extremities, left leg 02/26/2019 Lumbar [...] collected yesterday afternoon and dropped off at [facility] by RN. Only a Microscopic has been completed which is positive for bacteria. No urine was sent to [place] for a urine culture - this was confirmed with a phone call to lab in [place] by this CM. If a culture is [...] Linda Wilkinson RN [address] [place] [address] [phone] 11/22/2019 Office Visit Pulmonary Celsa Tafoya CRNP [address] [place] [address] [phone] 11/23/2019 Scheduled Telephone [facility] [place], [place] Screen Cutter [address] [address] [phone] 01/02/2020 Office Visit Pharmacy [facility] [place] [address] [address] 02/04/2020 Office Visit Dermatology Apple Kaminski MD [address] [place] [address], [place] [address] [phone] 02/07/2020 Office Visit Orthopedics Zack Teague, [address] [address] [phone] 02/26/2020 Office Visit Cardiology Rey Woodall MD [address] [address] [phone] 05/08/2020 Office Visit Family Medicine Kevin Whiteside DO [address] [address] [phone] Health Maintenance Due Date Last Done Comments Zoster Vaccines (3 of 3) 01/02/2020 11/07/2019, 11/24 Yearly B-12 03/14/2020 03/14/2019, 05/16/2018 DIABETES-EYE EXAM 04/05/2020 04/05/2019, (Done elsewhere), 12/18/2009, Additional history exists CKD GFR USE SMARTSET 64272 05/07/202011/07, 09/10/2019, 08/09/2019, Additional history exists DIABETES-HGBA1C EVERY 6 MONTHS 05/07/2020 11/07/2019, 08/09/2019, 03/14/2019, Additional history exists DIABETES-URINE MICROALBUMIN EVERY 12 MONTHS 05/24/2020 05/24/2019, 02/26/2019, 12/23/2018, Additional history exists BREAST CANCER SCREENING DISCUSSION YEARLY AGES 40-75 07/10/2020 07/10/2019, 06/23/2018, 05/09/2015, Additional history exists CKD HGB USE SMARTSET 35700 09/10/202009/10, 07/20/2019, 02/26/2019, Additional history exists CKD PHOS USE SMARTSET 25066 11/07/202010/27, 12/29/2017, 08/26/2009, Additional history exists DIABETES-FOOT [...] Documents on File Type Date Recorded Patient Syrup Blender Expl 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
--- OUTSIDE RECORDS SUMMARY | 2023-06-01 05:35 | External Medical Summary ---
Author Name Unknown Address [address] [facility] [place] [address] Phone Organization [facility] [employer] [address] [facility] [place] [address] Laboratory Report Ordering Provider Test Date Status MABEL TAYLOR 11/07/2019 15:07:00 Final Observation Date Value Abnormality Reference (Units ) Status BUN 11/07/2019 16:39 35 Above high normal 6-20 (mg/dL) Final Creatinine 11/07/2019 16:39 2.0 Above high normal 0.5- 1.0 (mg/dL) Final E Glom Filt Rate 11/07/2019 16:39 25.1 Below low normal >60 Final Performing Location [facility] [address] [facility] [place] [address]
--- OUTSIDE RECORDS SUMMARY | 2023-06-01 05:35 | External Medical Summary | Summary of Care ---
Author Name Unknown Organization [place] [address] Care Team Providers Care Baker Apprentice Name Role Phone Stevo Kevin Ocampomelinda Primary Care Provider Reason for Visit * Reason Comments Follow Up Discuss left TKR Encounter Details Date Type Department Care Team Description 11/08/2019 Office Visit Orthopaedics [facility] [address] [place] [address] Zack Teague DO [address] [facility] [place] [address] [phone] Primary osteoarthritis of left knee*; Ambulatory dysfunction; Chronic pain of left knee Allergies Active Allergy Reactions Severity Noted Date Comments Pollen 05/18/2019 Heparin 09/04/2009 Heparin Induced Thrombocytopenia Empagliflozin Other (Please comment) Medium 05/17/2018 3 yeast infections in 6 weeks after starting Morphine And Related 09/16/1997 Hallucinations Tetanus Toxoid Other (Please comment) 06/15/2011 Passed out documented as of this encounter (statuses as of 11/08/2019) Medications Medication Sig Dispensed Refills Start Date [...] 08/09/2019 Active Vitamin D, Ergocalciferol, 1.25 MG (92593 UT) CapsuleIndications:V itamin D deficiency Take 1 [...] goal of 7.0%-8.0% ([facility]) Take 1 Cap by mouth [...] use of insulin ([facility]) Inject 1.5 mg under the [...] as of this encounter (statuses as of 11/08/2019) Active Problems Problem Noted Date Chronic respiratory failure with hypoxia 11/07/2019 Hyperparathyroidism, secondary renal 08/2020 Vasculitis 11/07/2019 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, NYHA class 1 and CKD stage 3 05/14/2019 Other atherosclerosis of [place] arteries of extremities, left leg 02/26/2019 Lumbar [...] 10/14/2014 Overview: ICD-10 update of inactive term Murdock filter in place 08/19/2014 History of pulmonary [...] as of this encounter (statuses as of 11/08/2019) Resolved Problems Problem Noted Date Resolved Date [...] as of this encounter (statuses as of 11/08/2019) Immunizations Name Administration Dates Next Due Pneumococcal [...] Given: No Alcohol Use Drinks/Week oz/Week Comments Yes rare [...] Pressure - - Pulse - - Temperature 37.3 C (99.1 F) 11/08/2019 2:03 PM ES T Respiratory Rate - - Oxygen Saturation - - Inhaled Oxygen Concentration - - Weight 149.1 kg (328 lb 12.8 oz) 11/08/2019 2:03 PM EST Height 163.5 cm (5' 4.37") 11/08/2019 2:03 PM ES T Body Mass Index 55.79 11/08/2019 2:03 PM EST documented in this encounter Progress Notes * Zack Teague, DO - 11/08/2019 3:14 PM EST ORTHOPAEDIC SURGERY - Clinic Note SUBJECTIVE: Stephanie Camp is a 64 year old female. Chief Complaint Patient presents with Follow Up Discuss left TKR HPI: 64-year-old female presents today for evaluation of her left knee. She reports chronic pain, stiffness and difficulty with mobility. Her symptoms have been occurring for many years and becoming progressively worse. No reported injury. She has been treated conservatively with viscosupplementation, activity modification, physical therapy, bracing and medications. She reports minimal benefit. She is unable to have cortisone due to poorly controlled diabetes. She underwent previous right knee replacement roughly [address] Carrillo. Review of Systems: Constitutional ROS: No fevers, sweats, or chills Cardiovascular ROS: No chest pain Gastrointestinal ROS: No abdominal pain Musculoskeletal/Extremities ROS: Pain Neurologic ROS: No numbness or tingling Review of patient's allergies indicates: Allergen Reactions Jardiance [Empagliflozin] Other (Please comment) 3 yeast infections in 6 weeks after starting Hay Fever [Pollen] Heparin Heparin Induced Thrombocytopenia Morphine And Related Hallucinations Tetanus Toxoid Other (Please comment) Passed out Current Outpatient Medications Medication Sig Dispense Refill Dulaglutide (TRULICITY) 1.5 MG/0.5ML SOPN Inject 1.5 mg under the skin once a week. 5 Pre-filled Pen Syringe Dosing Unit 5 colchicine 0.6 MG Tablet Take 1/2 tab daily 45 Tab 0 clonazePAM (KLONOPIN) 0.5 MG Tablet Take 1 Tab by mouth 2 times a day. 60 Tab 0 Nortriptyline HCl (PAMELOR) 50 MG Capsule Take 1 Cap by mouth at bedtime. 90 Cap 2 traMADol (ULTRAM) 50 MG Tablet Take 1 Tab by mouth every 8 hours as needed for Pain, Severe. 90 Tab0 gabapentin (NEURONTIN) 300 MG Capsule Take 1 Cap by mouth 3 times a day. 270 Cap 5 DULoxetine (CYMBALTA) 60 MG CPEP Take 1 Cap by mouth daily. Along with 30 mg capsule to total 90 mgdaily. 90 Cap 4 insulin aspart (INSULIN ASPART) [...] Tab 1 Vitamin D, Ergocalciferol, 1.25 MG (71819 UT) Capsule Take 1 Cap by mouth every 4 weeks. 13 Cap 0 DULoxetine (CYMBALTA) 30 MG CPEP [...] mg by mouth daily. 180 Tab 3 oxygen GAS 2 L/min(Oxygen). 2 LPM bled through CPAP 11 cwp during all periods of sleep. 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 Nocturnal hypoxemia G47.34 ELISSA (obstructive sleep apnea) G47.33 Venous insufficiency I87.2 HTN, goal below 130/80 I10 History of pulmonary embolus (PE) Z86.711 Statin intolerance Z78.[address] Z95.828 Type 2 diabetes mellitus with hemoglobin A1c goal of 7.0%-8.0% ([facility]) E11.9 Fibromyalgia M79.7 Abnormality of gait R26.9 Restless legs syndrome G25.81 Gastroesophageal reflux disease with esophagitis K21.0 Uncontrolled type 2 diabetes mellitus with stage 3 chronic kidney disease, with long-term current use of insulin ([facility]) E11.22, E11.65, N18.3, Z79.4 Body mass index (BMI) of 50.0 to 59.9 in adult ([facility]) Z68.43 Controlled substance agreement signed Z79.899 Chronic diastolic congestive heart failure ([facility]) I50.32 Thoracic back pain M54.6 Mild episode of recurrent major depressive disorder ([facility]) F33.0 Lumbar radiculopathy M54.16 Other atherosclerosis of [place] arteries of extremities, left leg ([facility]) I70.292 Benign hypertensive heart and kidney disease with diastolic CHF, NYHA class 1 and CKD stage 3 ([facility]) I13.0, I50.30, N18.3 Chronic respiratory failure with hypoxia ([facility]) J96.11 Hyperparathyroidism, secondary renal ([facility]) N25.81 Vasculitis ([facility]) I77.6 Past Medical History: Diagnosis Date ELSIE (acute kidney injury) ([facility]) 06/12/2018 Allergic rhinitis due to other allergen Backache Diverticulosis of colon 01/28/06 DM type 2, not at goal ([facility]) ELLIE (generalized anxiety disorder) 09/13/2009 [address]iter [address] filter in place 08/19/2014 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[facility] [...] PLANNED performed by DANNY HOLDER [place] [facility] KNEE ARTHROSCOPY/DEBRIDEMENT 07/[address] PERMANENT GASTROSTOMY TUBE 09/06/09 GASTROSTOMY WITH CONSTUCTION GASTRIC TUBE performed by AMADOU NUNEZ [place] [facility] REMOVAL OF THYROID GLAND 06/15/2011 THYROIDECTOMY INCLUDING SUBSTERNAL THYROID CERVICAL APPROACH performed by DANNY HOLDER at [facility] [address] REMOVE GALLBLADDER 09/06/09 CHOLECYSTECTOMY performed by AMADOU NUNEZ at [facility] [address] REPAIR RECURRENT INCISIONAL HERNIA 1998 REVISION OF COLOSTOMY, SIMPLE 1998 SUTURE, LARGE INTESTINE W/COLOSTOMY 1996 perforation R colon with colostomy VENA CAVA FILTER/LIGATION/CLIP 08/19/09 Frank filter placement through the right femoral 08/19/[address] Lerma at [facility] Social History Tobacco Use Smoking status: Former Smoker Packs/day: 1.00 Years: 15.00 Pack years: 15.00 Last attempt to quit: 08/26/1997 Years since quittin.2 Smokeless tobacco: Never Used Substance Use Topics Alcohol use: Yes Comment: rare Drug use: No Family History Problem Relation Age of Onset Cancer Father lung - age 74 (smoker) Cancer Mother liver - age 45 Heart Disorder Brother age 45 - possible tumor Diabetes Grandmother (Paternal) Cancer Grandfather (Paternal) bone ca - in 70's OBJECTIVE: Diagnostic Testing: Left knee x-rays in July 2019 demonstrated evidence of moderate degenerative change primarily involving the medial compartment. Vital Signs: Temp (Src) 99.1 (Tympanic) | Ht 5' 4.37" (1.635m) | Wt 328 lbs 12.8 oz (149.143kg) | BMI 55.79 kg/m | BSA 2.6 m | LMP 03/11/2003 Physical Exam: Well developed/nourished; obese; no acute distress; alert, awake, oriented x3; normal affect Gait Assessment is antalgic with use of a cane Examination left knee reveals no evidence of edema, ecchymosis or erythema. There is no palpable effusion. Exquisite tenderness to palpation along the medial joint line. She exhibits roughly 0-115 degrees active motion limited secondary to pain. Quad strength is intact. Collateral stability intact. Sensation intact. Pulses palpable. Examination the right knee reveals a well-healed midline scar consistent with prior knee replacement. She exhibits 0-120 degrees active motion with good strength. Collateral stability intact. Sensation intact. Pulses palpable. ASSESSMENT: Primary osteoarthritis of left knee (Primary) Ambulatory dysfunction Chronic pain of left knee Follow Up: Return in about 3 months (around 02/06/2020). PLAN: We discussed her underlying degenerative change and failed conservative management. Radiographically she is a candidate for joint replacement. However, we discussed concerns related to obesity and poorly controlled diabetes as it pertains to joint replacement candidacy. I recommended continued improvement with respect to her A1c. Her A1c is currently at 8.3 down from 9.4. Her BMI is 55. We discussed weight loss as well as continued exercise as directed by Physical therapy. She has had a previous nutritional consultation in the past. She is understanding of the steps she needs to take to improve her weight management. I will see her back in 3 months for re-evaluation with respect to her progress. We will further discuss the possibility of joint replacement at that point. All questions answered. Much time was taken to answer all of her questions and family court counsellor her with respect to weight lossand diabetic management. This chart was completed in part utilizing [employer] Speech Voice Recognition Software. Grammatical errors, random word insertions, pronoun errors, and incomplete sentences are an occasional consequence of this system due to software limitations, ambient noise, and hardware issues. Any formal questions or concerns about the content, text, or information contained within the body of this dictation should be directly addressed to the provider for clarification. Zack Teague DO 11/08/2019 3:14 PM documented in this encounter Nursing Notes * Parvin Ritchie LPN - 11/08/2019 2:05 PM EST Patient presents today to discuss left total knee replacement. Last injection of Geylsn was . Patient states injections did not help just as bad as it was. documented in this encounter Plan of Treatment Upcoming Encounters Date Type Specialty Care Team Description 11/22/2019 Office Visit Pulmonary Celsa Tafoya CRNP [address] [place] [address] [phone] 11/23/2019 Scheduled Telephone [facility] Saira [place], [facility] Health Batch Trucker [address] [place] [address] [phone] 01/02/2020 Office Visit Pharmacy [facility] [place] [address] [place] [address] 02/04/2020 Office Visit Dermatology Apple Kaminski MD [address] [place] [address] [phone] 02/07/2020 Office Visit Orthopedics Zack Teague, DO [address] [place] [address] [phone] 02/26/2020 Office Visit Cardiology Rey Woodall MD [address] [place] [address] [phone] 05/08/2020 Office Visit Family Medicine Kevin Whiteside, [address] [place] [address] [phone] Health Maintenance Due Date Last Done Comments Zoster Vaccines (3 of 3) 01/02/2020 11/07/2019, 11/24 Yearly B-12 03/14/2020 03/14/2019, 05/16/2018 DIABETES-EYE EXAM 04/05/2020 04/05/2019, (Done elsewhere), 12/18/2009, Additional history exists CKD GFR USE SMARTSET 08246 05/07/202011/07, 09/10/2019, 08/09/2019, Additional history exists DIABETES-HGBA1C EVERY 6 MONTHS 05/07/2020 11/07/2019, 08/09/2019, 03/14/2019, Additional history exists DIABETES-URINE MICROALBUMIN EVERY 12 MONTHS 05/24/2020 05/24/2019, 02/26/2019, 12/23/2018, Additional history exists BREAST CANCER SCREENING DISCUSSION YEARLY AGES 40-75 07/10/2020 07/10/2019, 06/23/2018, 05/09/2015, Additional history exists CKD HGB USE SMARTSET 64990 09/10/202009/10, 07/20/2019, 02/26/2019, Additional history exists CKD PHOS USE SMARTSET 72537 11/07/202010/27, 12/29/2017, 08/26/2009, Additional history exists DIABETES-FOOT [...] left knee Pain in joint, lower leg documented in this encounter Advance Directives Documents on File Type Date Recorded Patient Personnel Adviser Expl 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
--- OUTSIDE RECORDS SUMMARY | 2023-06-01 05:35 | External Medical Summary | Summary of Care ---
Author Name Unknown Organization [place] [address] Care Team Providers Care Umbrella Cutter Name Role Phone Carey Whitesider Lisa Primary Care Provider Encounter Details Date Type Department Care Team Description 11/01/2019 Patient Reported Data Patient Survey Ortho OBERD Allergies Active Allergy Reactions Severity Noted Date Comments Pollen 05/18/2019 Heparin 09/04/2009 Heparin Induced Thrombocytopenia Empagliflozin Other (Please comment) Medium 05/17/2018 3 yeast infections in 6 weeks after starting Morphine And Related 09/16/1997 Hallucinations Tetanus Toxoid Other (Please comment) 06/15/2011 Passed out documented as of this encounter (statuses as of 11/01/2019) Medications Medication Sig Dispensed Refills Start Date [...] (BMI) of 50.0 to 59.9 in adult ([facility]),Hypoxemia,ELISSA (obstructive sleep apnea),HTN, goal below 140/80 Take [...] mouth daily. 90 Tab 3 07/10/2019 Active Semaglutide,0.25 or 0.5MG/DOS, (OZEMPIC, 0.25 OR 0.5 MG/DOSE,) 2 MG/1.5ML SOPNIndications:Type 2 diabetes mellitus with hemoglobin A1c goal of 7.0%-8.0% ([facility]) Inject 0.5 mg under the skin once a week. 3 Pre-filled Pen Syringe Dosing Unit 12 08/09/2019 Active DULoxetine (CYMBALTA) 30 MG CPEP Take 1 Cap by mouth daily. Take along with the 60mg dose for totally of 90mg daily. Do not cut, crush or chew 90 Cap 5 08/09/2019 Active Vitamin D, Ergocalciferol, 1.25 MG (28276 UT) CapsuleIndications:V itamin D deficiency Take 1 [...] clobetasol propionate (TEMOVATE) 0.05 % creamIndications:Vas culitis ([facility]) apply to rash on the legs and [...] goal of 7.0%-8.0% ([facility]) Take 1 Cap by mouth 3 times [...] tab daily 45 Tab 0 10/29/2019 Active Hospital, Clinic, or Other Facility Administered Medication Ordered Dose Route Frequency Start Date End Date Status levalbuterol (XOPENEX) inhalation solution 0.63 mgIndications:Wheezing 0.63 mg NEBULIZER Q4H PRN 09/12/2019 Ac tive levalbuterol (XOPENEX) inhalation solution 1.25 mgIndications:AVENDAÑO (dyspnea on exertion),Wheezing 1.25 mg NEBULIZER Q4H PRN 09/13/2019 Active documented as of this encounter (statuses as of 11/01/2019) Active Problems Problem Noted Date 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, NYHA class 1 and CKD stage 3 05/14/2019 Other atherosclerosis of [place] arteries of extremities, left leg 02/26/2019 Lumbar [...] 10/14/2014 Overview: ICD-10 update of inactive term [place] filter in place 08/19/2014 History of [...] as of this encounter (statuses as of 11/01/2019) Resolved Problems Problem Noted Date Resolved Date [...] as of this encounter (statuses as of 11/01/2019) Immunizations Name Administration Dates Next Due Pneumococcal [...] Yes rare Sex Assigned at Date Recorded Not on file Job Start Date Occupation Industry Not on file Not on file Not on file Travel History Travel Start Travel End documented as of this encounter Plan of Treatment Upcoming Encounters Date Type Specialty Care Team Description 11/07/2019 Office Visit Family Medicine Kevin Whiteside DO [address] [place] [address] [phone] 11/08/2019 Office Visit Orthopedics Zack Teague DO [address] [place] [address] [phone] 11/22/2019 Office Visit Pulmonary Celsa Tafoya CRNP [address] [place] [address] [phone] 11/23/2019 Scheduled Telephone [facility] [place], [place], [facility] Health Campaign Marketing Manager [address] [place] [address] [phone] 01/02/2020 Office Visit Pharmacy [facility] [place] [address] [place] [address] 02/04/2020 Office Visit Dermatology Apple Kaminski MD [address] [place] [address] [phone] 02/26/2020 Office Visit Cardiology Rey Woodall MD [address] [facility] [place] [address] [phone] Health Maintenance Due Date Last Done Comments Zoster Vaccines (2 of 3) 02/05/2016 12/11/2015 CKD PHOS USE SMARTSET 56130 12/29/2018 04/01/2018, 08/26/2009, 08/25/2009, Additional history exists DIABETES-FOOT EXAM 01/02/2020 01/01/2019, 0 12/29/2017, 10/21/2016, Additional history exists DIABETES-HGBA1C EVERY 6 MONTHS 02/07/2020 08/09/2019, 03/14/2019, 09/27/2018, Additional history exists CKD GFR USE SMARTSET 60148 03/11/202009/10, 08/09/2019, 07/20/2019, Additional history exists Yearly B-12 03/14/2020 03/14/2019, 05/16/2018 DIABETES-EYE EXAM 04/05/2020 04/05/2019, (Done elsewhere), 12/18/2009, Additional history exists DIABETES-URINE MICROALBUMIN EVERY 12 MONTHS 05/24/2020 05/24/2019, 02/26/2019, 12/23/2018, Additional history exists BREAST CANCER SCREENING DISCUSSION YEARLY AGES 40-75 07/10/2020 07/10/2019, 06/23/2018, 05/09/2015, Additional history exists CKD HGB USE SMARTSET 61151 09/10/202009/10, 07/20/2019, 02/26/2019, Additional history exists PAP SMEAR-EVERY 3 [...] on File Type Date Recorded Patient Twist Maker Expl 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
--- OUTSIDE RECORDS SUMMARY | 2023-06-01 05:35 | External Medical Summary ---
Author Name Unknown Address [address] [place] [address] Phone Organization K01:[place] [address] Laboratory Report Ordering Provider Test Date Status RENUKA TOBAR 11/09/2019 16:27:00 Final Observation Date Value Abnormality Reference (Units ) Status Bacteria/area UmS Auto 11/09/2019 21:20 >200 Abnormal AJV204 (/HPF) Final WBC No./area UrnS Auto 11/09/2019 21:20 20-29 Abnormal U02 (/HPF) Final RBC No./area UrnS Auto 11/09/2019 21:20 0-2 U02 (/HPF) Final Hyaline Casts No./area UrnS Auto 11/09/2019 21:20 1-4 UM1 (/LPF) Final Performing Location [place] [id number]
--- OUTSIDE RECORDS SUMMARY | 2023-06-01 05:35 | External Medical Summary | Summary of Care ---
Author Name Unknown Organization [place] [address] Care Team Providers Care Auto Machinist Name Role Phone Whiteside Kevin Ocampomelinda Primary Care Provider Reason for Visit * Reason Comments Test Results Encounter Details Date Type Department Care Team Description 11/09/2019 Telephone Dermatology [facility] [address] [place] [address] Apple Kaminski MD [address] [place] [address] Test Results Allergies Active Allergy Reactions Severity Noted Date Comments Pollen 05/18/2019 Heparin 09/04/2009 Heparin Induced Thrombocytopenia Empagliflozin Other (Please comment) Medium 05/17/2018 3 yeast infections in 6 weeks after starting Morphine And Related 09/16/1997 Hallucinations Tetanus Toxoid Other (Please comment) 06/15/2011 Passed out documented as of this encounter (statuses as of 11/09/2019) Medications Medication Sig Dispensed Refills Start Date [...] 3 08/30/2018 Active Blood Glucose Monitoring Suppl (BLOVESTOUCH ULTRA 2) w/Device KIT Use to test [...] 08/09/2019 Active Vitamin D, Ergocalciferol, 1.25 MG (48741 UT) CapsuleIndications:V itamin D deficiency Take 1 [...] as of this encounter (statuses as of 11/09/2019) Active Problems Problem Noted Date Chronic respiratory failure with hypoxia 11/07/2019 Hyperparathyroidism, secondary renal 08/2020 Vasculitis 11/07/2019 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, NYHA class 1 and CKD stage 3 05/14/2019 Other atherosclerosis of [place] arteries of extremities, left leg 02/26/2019 Lumbar [...] Overview: ICD-10 update of inactive term [place] filter in place 08/19/2014 History of pulmonary [...] as of this encounter (statuses as of 11/09/2019) Resolved Problems Problem Noted Date Resolved Date [...] as of this encounter (statuses as of 11/09/2019) Immunizations Name Administration Dates Next Due Pneumococcal [...] encounter Miscellaneous Notes * Telephone Encounter - Krissy Baker DO - 11/09/2019 12:41 PM EST Please call patient Ordered urine cx she can come in and do at lab if urinary sx persist or get worse * Telephone Encounter - Izabela Crump LPN - 11/09/2019 12:24 PM EST PCP out of office until Tuesday. * Telephone Encounter - Apple Kaminski MD - 11/09/2019 11:52 AM EST Will defer to PCP. Please make sure Dr. Whiteside is aware of results. * Telephone Encounter - Feng Henley LPN - 11/09/2019 8:55 AM EST Called pt informed her of below. Pt reports she has some urinary frequency and itching in the area, but she states the symptoms are not consistent they are very intermittent. Denies all other s/s of UTI. * Telephone Encounter - Feng Henley LPN - 11/09/2019 8:54 AM EST ----- Message from Apple Kaminski MD sent at 11/08/2019 10:40 PM EST ----- Patient Phone Numbers Please call pt with lab results. Kidney function is still elevated but stable from prior lab. Urinalysis shows no involvement of kidneys with vasculitis. Please also ask if she is having any symptomsof a UTI-there was bacteria and WBC's on U/A. documented in this encounter Plan of Treatment Upcoming Encounters Date Type Specialty Care Team Description 11/22/2019 Office Visit Pulmonary Celsa Tafoya CRNP [address] [place] [address] [phone] 11/23/2019 Scheduled Telephone [facility] Saira Salmon, Community [facility] Flow Worker [address] [address] [phone] 01/02/2020 Office Visit Pharmacy [facility] [place] [address] [address] 02/04/2020 Office Visit Dermatology Apple Kaminski MD [address] [place], [place] [address] [address] [phone] 02/07/2020 Office Visit Orthopedics Zack Teague DO [address] [address] [phone] 02/26/2020 Office Visit Cardiology Rey Woodall MD [address] [address] [phone] 05/08/2020 Office Visit Family Medicine Kevin Whiteside DO [address] [address] [phone] Scheduled Orders Name Type Priority Associated Diagnoses Orde r Schedule CULTURE QUANT URINE Lab Routine Dysuria Ordered: 11/09/2019 Health Maintenance Due Date Last Done Comments Zoster Vaccines (3 of 3) 01/02/2020 11/07/2019, 11/24 Yearly B-12 03/14/2020 03/14/2019, 05/16/2018 DIABETES-EYE EXAM 04/05/2020 04/05/2019, (Done elsewhere), 12/18/2009, Additional history exists CKD GFR USE SMARTSET 38147 05/07/202011/07, 09/10/2019, 08/09/2019, Additional history exists DIABETES-HGBA1C EVERY 6 MONTHS 05/07/2020 11/07/2019, 08/09/2019, 03/14/2019, Additional history exists DIABETES-URINE MICROALBUMIN EVERY 12 MONTHS 05/24/2020 05/24/2019, 02/26/2019, 12/23/2018, Additional history exists BREAST CANCER SCREENING DISCUSSION YEARLY AGES 40-75 07/10/2020 07/10/2019, 06/23/2018, 05/09/2015, Additional history exists CKD HGB USE SMARTSET 08311 09/10/202009/10, 07/20/2019, 02/26/2019, Additional history exists CKD PHOS USE SMARTSET 30214 11/07/202010/27, 12/29/2017, 08/26/2009, Additional history exists DIABETES-FOOT [...] Documents on File Type Date Recorded Patient Ore Smelter Expl 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
--- OUTSIDE RECORDS SUMMARY | 2023-06-01 05:35 | External Medical Summary | Summary of Care ---
Author Name Unknown Organization [place] [address] Care Team Providers Care Academic Affairs Vice President Name Role Phone Kevin Whiteside DO Primary Care Provider Reason for Referral * Medication Prior Authorization (Routine) Status Reason Specialty Diagnoses / Procedures Referre d By Contact Referred To Contact Closed Diagnoses DM type 2 nursing care encounter (HCC) Uncontrolled type 2 diabetes mellitus with stage 3 chronic kidney disease, with long-term current use of insulin (HCC) Kevin Whiteside DO [address] [place] [address] * Evaluate & Treat - Unlimited Visits (Within 10 days (routine)) Status Reason Specialty Diagnoses / Procedures Referred By Contact Referred To Contact Authorized Specialty Services Required Optometry Diagnoses Visual impairment Kevin Whiteside DO [address] [place] [address] Reason for Visit * Reason Comments Follow Up 6 month return Immunizations Shingrix Encounter Details Date Type Department Care Team Description 11/07/2019 Office Visit Family [facility] [address] [place] [address] Kevin Whiteside DO [address] [address] [phone] Need for vaccination for zoster*; Vasculitis (HCC); DM type 2 nursing care encounter (HCC); Chronic respiratory failure with hypoxia (HCC); 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, NYHA class 1 and CKD stage 3 (HCC); Chronic diastolic congestive heart failure (HCC); Uncontrolled type 2 diabetes mellitus with stage 3 chronic kidney disease, with long-term current use of insulin (HCC); Mild episode of recurrent major depressive disorder (HCC); Body mass index (BMI) of 50.0 to 59.9 in adult (HCC); Hyperparathyroidism, secondary renal (HCC); Kidney disease, chronic, stage III (GFR 30-59 ml/min) (HCC); Visual impairment Allergies Active Allergy Reactions Severity Noted Date Comments Pollen 05/18/2019 Heparin 09/04/2009 Heparin Induced Thrombocytopenia Empagliflozin Other (Please comment) Medium 05/17/2018 3 yeast infections in 6 weeks after starting Morphine And Related 09/16/1997 Hallucinations Tetanus Toxoid Other (Please comment) 06/15/2011 Passed out documented as of this encounter (statuses as of 11/07/2019) Medications Medication Sig Dispensed Refills Start Date [...] (BMI) of 50.0 to 59.9 in adult ([facility]),Hypoxemia,ELISSA (obstructive sleep apnea),HTN, goal below [...] 30 Tab 5 9 Active Glucose Blood (ZoomoramaTOUCH ULTRA BLUE) STRP Check sugars 3-4 times [...] 9 Active Vitamin D, Ergocalciferol, 1.25 MG (07489 UT) CapsuleIndications: Vitamin D deficiency Take 1 [...] clobetasol propionate (TEMOVATE) 0.05 % creamIndications:Va sculitis ([facility]) apply to rash on the legs and arm twice daily x 1-2 weeks. 30 g 5 9 Active insulin aspart (INSULIN ASPART) 100 UNIT/ML injection USE IN INSULIN PUMP UP TO 200 UNITS PER DAY 30 mL 7 9 Active DULoxetine (CYMBALTA) 60 MG CPEPIndications:Fib romyalgia,Moderate episode of recurrent major depressive disorder ([facility] [...] Severe. 90 Tab 0 0 Active clonazePAM (KLONOPIN) 0.5 MG TabletIndications:A nxiety state Take 1 Tab by mouth 2 times a day. 60 Tab 0 0 Active Nortriptyline HCl (PAMELOR) 50 MG CapsuleIndications: Fibromyalgia Take 1 Cap by mouth at bedtime. 90 Cap 2 0 Active colchicine 0.6 MG TabletIndications:L eukocytoclastic vasculitis ([facility] [...] Pen Syringe Dosing Unit 5 0 Active Semaglutide,0.25 or 0.5MG/DOS, (OZEMPIC, 0.25 OR 0.5 MG/DOSE,) 2 MG/1.5ML SOPNIndications:Typ e 2 diabetes mellitus with hemoglobin A1c goal of 7.0%-8.0% ([facility]) Inject 0.5 mg under the skin once a week. 3 Pre-filled Pen Syringe Dosing Unit 12 9 11/07/19 20 Discontinued Hospital, Clinic, or Other Facility Administered Medication Ordered Dose Route Frequency Start Date End Date Status levalbuterol (XOPENEX) inhalation solution 0.63 mgIndications:Wheezing 0.63 mg NEBULIZER Q4H PRN 09/12/2019 Ac tive levalbuterol (XOPENEX) inhalation solution 1.25 mgIndications:AVENDAÑO (dyspnea on exertion),Wheezing 1.25 mg NEBULIZER Q4H PRN 09/13/2019 Active documented as of this encounter (statuses as of 11/07/2019) Active Problems Problem Noted Date Chronic respiratory failure with hypoxia 11/07/2019 Hyperparathyroidism, secondary renal 08/2020 Vasculitis 11/07/2019 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, NYHA class 1 and CKD stage 3 05/14/2019 Other atherosclerosis of [place] arteries of extremities, left leg 02/26/2019 Lumbar [...] as of this encounter (statuses as of 11/07/2019) Resolved Problems Problem Noted Date Resolved Date [...] as of this encounter (statuses as of 11/07/2019) Immunizations Name Administration Dates Next Due Pneumococcal [...] Reading Time Taken Comments Blood Pressure 120/68 11/07/2019 2:23 PM EST Pulse 100 11/07/2019 2:23 PM EST Temperature 36.4 C (97.6 F) 11/07/2019 2:23 PM ES T Respiratory Rate 24 11/07/2019 2:23 PM EST Oxygen Saturation 96% 11/07/2019 2:23 PM EST RA Inhaled Oxygen Concentration - - Weight 148.3 kg (327 lb) 11/07/2019 2:23 PM EST Height - - Body Mass Index 55.49 10/03/2019 3:03 PM EST documented in this encounter Patient Instructions * Patient Instructions* Izabela Crump LPN - 11/07/2019 2:30 PM EST Diabetes: Keeping Feet Healthy Inspect [...] calluses yourself. Talk to your doctor or special education preschool teacher (a doctor who specializes in foot care) [...] the area doesnt appear to be healing. [phone] [employer], [address] [place] [address], [place] [address]. All rights reserved. This information is not intended as a substitute for professional medical care. Always follow your healthcare professional's instructions. documented in this encounter Progress Notes * Kevin Whiteside, DO - 11/07/2019 2:36 PM EST Nursing Notes: Izabela Crump LPN 11/07/19 1430 Signed The patient has been properly identified by confirmation of name and date of . Chief Complaint Patient presents with Follow Up 6 month return ASSESSMENT/PLAN: 1. Vasculitis (HCC) Being treated with colchicine Continue f/u as indicated with derm 2. DM type 2 nursing care encounter (HCC) - DIABETES FOOT EXAM - HEMOGLOBIN A1C; Future - Dulaglutide (TRULICITY) 1.5 MG/0.5ML SOPN; Inject 1.5 mg under the skin once a week. Dispense: 5 Pre-filled Pen Syringe Dosing Unit; Refill: 5 3. Chronic respiratory failure with hypoxia ([facility]) Stable, not hypoxic at baseline today 4. 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 Chronic diastolic congestive heart failure (HCC) Stable No SOB, stable LE edema 6. Uncontrolled type 2 diabetes mellitus with stage 3 chronic kidney disease, with long-term current use of insulin ([facility]) - HEMOGLOBIN A1C; Future - Dulaglutide (TRULICITY) 1.5 MG/0.5ML SOPN; Inject 1.5 mg under the skin once a week. Dispense: 5 Pre-filled Pen Syringe Dosing Unit; Refill: 5 7. Mild episode of recurrent major depressive disorder (HCC) Stable Continue treatment 8. Body mass index (BMI) of 50.0 to 59.9 in adult (HCC) Down 10 lb from last year, overall doing well with PT, improving mobility, but knee pain has been the limiting factor 9. Hyperparathyroidism, secondary renal (HCC) stable 10. Need for vaccination for zoster - ZOSTER VACCINE RECOMB, 2 DOSE, IM (SHINGRIX) - ZOSTER VACCINE RECOMB, 2 DOSE, IM (SHINGRIX); Future 11. Kidney disease, chronic, stage III (GFR 30-59 ml/min) ([facility]) - PHOSPHORUS; Future 12. Visual impairment need new physics faculty member - OPTOMETRY REFERRAL OP HPI: Stephanie Camp is a 64 year old female who: Presents today in follow up. Overall doing well, feels as though she was making progress in PT until her knee began to act up again. Pursuing replacement, which would be a big help towards her progress in losing weight and becoming more mobile. Due for labs today. Taking meds as prescribed. Needs to switch to Trulicity due to insurance changes. ROS: CONSTITUTIONAL: no weight loss, no fevers, [...] numbness PSYCH: no SI/HI PHYSICAL EXAMINATION: BP 120/68 | Pulse 100 | Temp (Src) 97.6 (Tympanic) | Resp 24 | Wt 327 lbs (148.326kg) | BMI 55.49 kg/m | BSA 2.6 m | SaO2 96[RA[% | LMP 03/11/2003 GENERAL: alert, healthy, no [...] clear to auscultation bilaterally. 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 Nocturnal hypoxemia G47.34 ELISSA (obstructive sleep apnea) G47.33 Venous insufficiency I87.2 HTN, goal below 130/80 I10 History of pulmonary embolus (PE) Z86.711 Statin intolerance Z78.[address] [place] [address] Z95.828 Type 2 diabetes mellitus with hemoglobin A1c goal of 7.0%-8.0% ([facility]) E11.9 Fibromyalgia M79.7 Abnormality of gait R26.9 Restless legs syndrome G25.81 Gastroesophageal reflux disease with esophagitis K21.0 Uncontrolled type 2 diabetes mellitus with stage 3 chronic kidney disease, with long-term current use of insulin ([facility]) E11.22, E11.65, N18.3, Z79.4 Body mass index (BMI) of 50.0 to 59.9 in adult ([facility]) Z68.43 Controlled substance agreement signed Z79.899 Chronic diastolic congestive heart failure ([facility]) I50.32 Thoracic back pain M54.6 Mild episode of recurrent major depressive disorder ([facility]) F33.0 Lumbar radiculopathy M54.16 Other atherosclerosis of [place] arteries of extremities, left leg ([facility]) I70.292 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, NYHA class 1 and CKD stage 3 ([facility]) I13.0, I50.30, N18.3 Chronic respiratory failure with hypoxia ([facility]) J96.11 Hyperparathyroidism, secondary renal ([facility]) N25.81 Vasculitis ([facility]) I77.6 Past Medical History: Diagnosis Date ELSIE (acute kidney injury) ([facility]) 06/12/2018 Allergic rhinitis due to other allergen Backache Diverticulosis of colon 01/28/06 DM type 2, not at goal ([facility]) ELLIE (generalized anxiety disorder) 09/13/2009 Goiter [place] filter in place 08/19/2014 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[facility] [...] DANNY HOLDER at [facility] KNEE ARTHROSCOPY/DEBRIDEMENT 07/[address] PERMANENT GASTROSTOMY TUBE 09/06/09 GASTROSTOMY WITH CONSTUCTION GASTRIC TUBE performed by AMADOU NUNEZ at [facility] REMOVAL OF THYROID GLAND 06/15/2011 THYROIDECTOMY INCLUDING SUBSTERNAL THYROID CERVICAL APPROACH performed by DANNY HOLDER at [facility] REMOVE GALLBLADDER 09/06/09 CHOLECYSTECTOMY performed by AMADOU NUNEZ at [facility] REPAIR RECURRENT INCISIONAL HERNIA 1998 REVISION OF COLOSTOMY, SIMPLE 1998 SUTURE, LARGE INTESTINE W/COLOSTOMY 1996 perforation R colon with colostomy VENA CAVA FILTER/LIGATION/CLIP 08/19/09 [place] filter placement through the right femoral 08/19/[address] Lerma at [facility] Current Outpatient Medications Medication Sig [...] Tab 1 Vitamin D, Ergocalciferol, 1.25 MG (16413 UT) Capsule Take 1 Cap by mouth [...] during all periods of sleep. Glucose Blood (OffiSyncUCH ULTRA BLUE) STRP Check sugars 3-4 times [...] 20 MG PO CPDR one tablet daily Review of patient's allergies indicates: Allergen Reactions Jardiance [Empagliflozin] Other (Please comment) 3 yeast infections in 6 weeks after starting Hay Fever [Pollen] Heparin Heparin Induced Thrombocytopenia Morphine And Related Hallucinations Tetanus Toxoid Other (Please comment) Passed out Kevin Whiteside DO [address] [address] (This note was completed using the dictation program Fluency Direct. As such, there may be misspellings, word substitutions, or other variations that should not change the essence of the clinical content of this encounter note.If there is need for further clarification, please direct questions to the provider listed above.) * Izabela Crump LPN - 11/07/2019 2:26 PM EST Does the patient have active shingles? No If, yes, patient must wait to receive vaccine till after rash is gone. Does the patient have an illness today with a fever more than 101?F? No Has the patient ever had a serious allergic reaction after receiving a vaccination? No Has the patient had a blood test showing they are not immune to Chicken Pox (rare)? No If yes, should get Chicken pox vaccine instead of shingrix. Shingrix Vaccine Information Sheet has been provided. Izabela Crump LPN 11/07/2019 2:26 PM IMMUNIZATION ADMINISTRATION DOCUMENTATION Time Out Procedure Performed: Yes Patient Identified (Ask Name/Date of ): Yes Patient allergic to latex?No VFC Stock? No Immunization(s) verified: Yes, Immunization Name: Shingrix, VIS Sheet(s) given: Yes Verified Side and Site: Yes Verified Shot(s) with Parent(s)/Patient: Yes Shingrix was administered per clinic protocol. Patient received the Shingrix VIS (Vaccine Information Sheet). Izabela Crump LPN, 11/07/2019, 2:26 PMDM Foot Exam completed today. Provider aware. Izabela Crump LPN Socks and Shoes Removed for Annual [...] Nursing Notes * Izabela Crump LPN - 11/07/2019 2:23 PM EST The patient has been properly identified by confirmation of name and date of . Chief Complaint Patient presents with Follow Up 6 month return documented in this encounter Plan of Treatment Upcoming Encounters Date Type Specialty Care Team Description 11/08/2019 Office Visit Orthopedics Zack Teague, DO [address] [address] [phone] 11/22/2019 Office Visit Pulmonary Celsa Tafoya CRNP [address] [address] [phone] 11/23/2019 [facility] Brick Tosser [address] [address] [phone] 01/02/2020 Office Visit Pharmacy [facility] [place] [address] [address] 02/04/2020 Office Visit Dermatology Apple Kaminski MD [address] [place] [address] [phone] 02/26/2020 Office Visit Cardiology Rey Woodall MD [address] [address] [phone] 05/08/2020 Office Visit Family Medicine Kevin Whiteside, [address] [address] [phone] Pending Results Name Type Priority Associated Diagnoses Date /Time HEMOGLOBIN A1C Lab Routine DM type 2 nursing care encounter (HCC) Uncontrolled type 2 diabetes mellitus with stage 3 chronic kidney disease, with long-term current use of insulin ([facility]) 11/07/2019 3:04 PM EST PHOSPHORUS Lab Routine Kidney disease, chronic, stage III (GFR 30-59 ml/min) ([facility]) 11/07/2019 3:04 PM EST Scheduled Orders Name Type Priority Associated Diagnoses Orde r Schedule HEMOGLOBIN A1C Lab Routine DM type 2 nursing care encounter (HCC) Uncontrolled type 2 diabetes mellitus with stage 3 chronic kidney disease, with long-term current use of insulin ([facility]) Expected: 11/07/2019 (Approximate), Expires: 11/06/2020 PHOSPHORUS Lab Routine Kidney disease, chronic, stage III (GFR 30-59 ml/min) ([facility]) Expected: 11/07/2019 (Approximate), Expires: 11/06/2020 Scheduled Referrals Name Type Priority Associated Diagnoses Orde r Schedule OPTOMETRY REFERRAL OP Referral Within 10 days (routine) Visual impairment Ordered: 11/07/2019 Health Maintenance Due Date Last Done Comments Zoster Vaccines (2 of 3) 02/05/2016 12/11/2015 CKD PHOS USE SMARTSET 09734 12/29/2018 04/0 01/2018, 08/26/2009, 08/25/2009, Additional history exists DIABETES-FOOT EXAM 01/02/2020 01/01/2019, 0 12/29/2017, 10/21/2016, Additional history exists DIABETES-HGBA1C EVERY 6 MONTHS 02/07/2020 08/09/2019, 03/14/2019, 09/27/2018, Additional history exists CKD GFR USE SMARTSET 15486 03/11/202009/10, 08/09/2019, 07/20/2019, Additional history exists Yearly B-12 03/14/2020 03/14/2019, 05/16/2018 DIABETES-EYE EXAM 04/05/2020 04/05/2019, (Done elsewhere), 12/18/2009, Additional history exists DIABETES-URINE MICROALBUMIN EVERY 12 MONTHS 05/24/2020 05/24/2019, 02/26/2019, 12/23/2018, Additional history exists BREAST CANCER SCREENING DISCUSSION YEARLY AGES 40-75 07/10/2020 07/10/2019, 06/23/2018, 05/09/2015, Additional history exists CKD HGB USE SMARTSET 64773 09/10/202009/10, 07/20/2019, 02/26/2019, Additional history exists PAP [...] vaccination and inoculation against other viral diseases Vasculitis (HCC) Arteritis, unspecified DM type 2 nursing care encounter (HCC) Type II or unspecified type diabetes mellitus without mention of complication, not stated as uncontrolled Chronic respiratory failure with hypoxia (HCC) Chronic respiratory failure 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, NYHA class 1 and CKD stage 3 (HCC) Chronic diastolic congestive heart failure (HCC) Chronic diastolic heart failure Uncontrolled type 2 diabetes mellitus with stage 3 chronic kidney disease, with long-term current use of insulin (HCC) Mild episode of recurrent major depressive disorder ([facility]) Body mass index (BMI) of 50.0 to 59.9 in adult (HCC) Hyperparathyroidism, secondary renal (HCC) Secondary hyperparathyroidism (of renal origin) Kidney disease, chronic, stage III (GFR 30-59 ml/min) (HCC) Chronic kidney disease, Stage III (moderate) Visual impairment Unspecified visual loss documented in this encounter Advance Directives Documents on File Type Date Recorded Patient Shaft Tender Expl 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
--- OUTSIDE RECORDS SUMMARY | 2023-06-01 05:35 | External Medical Summary | Summary of Care ---
Author Name Unknown Organization [place] [address] Care Team Providers Care Adjunct Phlebotomy Instructor Name Role Phone Stevo Kevin Ocampomelinda Primary Care Provider Reason for Visit * Reason Comments Knee Pain Left knee pain Encounter Details Date Type Department Care Team Description 11/01/2019 Office Visit Orthopaedics [facility] [address] [place] [address] Zonia Cheema DO [address] [place] [address] [phone] Primary osteoarthritis of left knee* Allergies Active [...] hemoglobin A1c goal of 7.0%-8.0% (HCC) Inject 0.5 mg under the skin once a week. 3 Pre-filled Pen Syringe Dosing Unit 12 08/09/2019 Active DULoxetine (CYMBALTA) 30 MG CPEP Take 1 Cap by mouth daily. Take along with the 60mg dose for totally of 90mg daily. Do not cut, crush or chew 90 Cap 5 08/09/2019 Active Vitamin D, Ergocalciferol, 1.25 MG (61043 UT) CapsuleIndications:V itamin D deficiency Take 1 [...] CKD stage 3 05/14/2019 Other atherosclerosis of lower [place] arteries of extremities, left leg 02/26/2019 Lumbar [...] as of this encounter Progress Notes * German Tapia PA-C - 11/01/2019 10:22 AM EST Follow-up left knee osteoarthritis. She is 2 months status post receiving a series of viscosupplementation BURROWS injections for left knee. States she see upwards of 1 week of relief after the injection series was complete in the knee begin to return to pre-injection status. She has pain with sleep weight-bearing activity and at rest. At this point patient is inquiring about proceeding with surgical intervention with a knee replacement. She did have a right sided knee replacement by Dr. Carrillo at [facility] in 2008 and that worked very well for her. She is hoping that she can gether left knee replaced this time. Denies any new injury or fall. Denies any swelling redness or mechanical symptoms in the left knee. Has no calf pain no numbness or tingling distally. Pain is worse on the medial joint line. Nursing Notes: Corinne Dorantes LPN 11/01/19 1001 Signed Chief Complaint Patient presents with Knee Pain Left knee pain Last Office Visit: 09/04/2019 Pain in left knee 05/05 today. Patient is continuing to attend PT but is not progressing. Had some relief between the first two injections but no relief after third. Today's Vitals: LMP 03/11/2003 Review of patient's allergies indicates: Allergen Reactions Jardiance [Empagliflozin] Other (Please comment) 3 yeast infections in 6 weeks after starting Hay Fever [Pollen] Heparin Heparin Induced Thrombocytopenia Morphine And Related Hallucinations Tetanus Toxoid Other (Please comment) Passed out Review of Systems complete review of systems negative Physical Exam General: alert and oriented x3 male, no acute distress, appears currently stated age,pleasant, well nourished Psych: Mood and affect are normal and without any positive/concerning findings Skin: Left lower extremity including knee does not reveal any erythema, effusion, ecchymosis, abrasion, laceration, skin breakdown otherwise Neurovascular: Left lower extremity reveals distal pulses +2, capillary refill is under 2 seconds, good sensation light touch, +5 strength, full sensory and motor function, calf supple nontender, FHLEHL TA and gastroc are intact Respiratory: Patient's breathing unlabored HEENT: Head is atraumatic normocephalic, eyes are equal and round and without scleral injection, oral and nasal cavities are patent without exudate Gait and station: Normal without antalgic findings during ambulation and generalized movements Coordination: Normal and without imbalance Musculoskeletal: Left knee reveals range of motion 0, 0, 110 with tightness along the medial joint and patellofemoral joint line at endpoints. She has tenderness when palpating the medial femoral condyle. Ligamentously stable. Discomfort with Radha's testing. Extensor mechanism intact. Hip andankle atraumatic A review of plain film radiographs patient's left knee: XR LEFT KNEE 3 VIEWS - 08/21/2019 10:22 am HISTORY pain FINDINGS There is moderate narrowing medial compartment of the knee. There is degenerative spurring around the knee. There is no evidence of fracture. IMPRESSION IMPRESSION Osteoarthritic changes of the left knee with moderate narrowing of the medial compartment. Current Outpatient Medications Medication Sig Dispense Refill [...] Tab 1 Vitamin D, Ergocalciferol, 1.25 MG (15410 UT) Capsule Take 1 Cap by mouth every 4 weeks. 13 Cap0 DULoxetine (CYMBALTA) 30 MG CPEP Take 1 Cap by mouth daily. Take along with the 60mg dose for totally of 90mg daily. Do not cut, crush or chew 90 Cap 5 Semaglutide,0.25 or 0.5MG/DOS, (OZEMPIC, 0.25 OR 0.5 MG/DOSE,) 2 MG/1.5ML SOPN Inject 0.5 mg under the skin once a week. 3 Pre-filled Pen Syringe Dosing Unit 12 spironolactone (ALDACTONE) 25 MG Tablet Take 1 Tab by mouth daily. 90 Tab 3 Magnesium Oxide 400 (241.3 mg) Tablet Take 400 mg by mouth daily. 90 Tab 3 furosemide (LASIX) 40 MG Tablet Take 40 mg by mouth daily. 180 Tab 3 oxygen GAS 2 L/min(Oxygen). 2 LPM bled through CPAP 11 cwp during all periods of sleep. Glucose Blood (ACHICATOUCH ULTRA BLUE) STRP Check sugars 3-4 times [...] 20 MG PO CPDR one tablet daily Past Medical History: Diagnosis Date ELSIE (acute kidney injury) ([facility]) 06/12/2018 Allergic rhinitis due to other allergen Backache Diverticulosis of colon 01/28/06 DM type 2, not at goal ([facility]) ELLIE (generalized anxiety disorder) 09/13/2009 Goiter [place] filter in place 08/19/2014 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[facility]) 08/22/2009 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[facility]) 06/12/2018 History of pulmonary embolus (PE) 07/16/2014 HTN, goal below 140/90 Impetigo 09/27/2018 Obesity, BMI not known Perforation of intestine ([facility]) 1996 COLON -- 1996 Pneumonia in aspergillosis(484.6) 09/14/2009 Spontaneous pneumothorax 09/14/2009 Statin intolerance 07/16/2014 Type 2 diabetes mellitus with hemoglobin A1c goal of 7.0%-8.0% ([facility]) 10/14/2014 ICD-10 update of inactive term Vaginal karmen 07/13/2018 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 Nocturnal hypoxemia G47.34 ELISSA (obstructive sleep apnea) G47.33 Venous insufficiency I87.2 HTN, goal below 130/80 I10 History of pulmonary embolus (PE) Z86.711 Statin intolerance Z78.[address] Z95.828 Type 2 diabetes mellitus with hemoglobin A1c goal of 7.0%-8.0% ([facility]) E11.9 Fibromyalgia M79.7 Abnormality of gait R26.9 Restless legs syndrome G25.81 Gastroesophageal reflux disease with esophagitis K21.0 Uncontrolled type 2 diabetes mellitus with stage 3 chronic kidney disease, with long-term current use of insulin ([facility]) E11.22, E11.65, N18.3, Z79.4 Body mass index (BMI) of 50.0 to 59.9 in adult ([facility]) Z68.43 Controlled substance agreement signed Z79.899 Chronic diastolic congestive heart failure ([facility]) I50.32 Thoracic back pain M54.6 Mild episode of recurrent major depressive disorder ([facility]) F33.0 Lumbar radiculopathy M54.16 Other atherosclerosis of lower [place] arteries of extremities, left leg ([facility]) I70.292 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 Lerma at [facility] Impression: Left knee osteoarthritis Plan: Today 's findings were discussed with the patient. They were educated regarding their diagnosis. Multiple treatment options discussed and agreed upon, including having patient follow-up with Dr. Teague. Patient has been counseled and educated regarding decreasing her BMI in order to qualify for surgical intervention. Patient also has a past medical history of cardiac pathology and wouldrequire a cardiac clearance as well and adequate control of her diabetes. Of note, she did respond very well postoperatively after having her right total knee arthroplasty in terms of providing sufficient effort and during her physical therapy in her rehab window. Certainly, that should be taken into affect is well. The patient has no other questions or concerns. They will follow up accordingly to discussed left total knee arthroplasty. Pleased with today 's care. Call sooner if needed. This chart was completed in part utilizing [employer] Speech Voice Recognition Software. Grammatical errors, random word insertions, prounoun errors, and incomplete sentences are an occasional consequence of this system due to software limitations, ambient noise, and hardware issues. Any formal questions or concerns about the content, text, or information contained within the body of this dictation should be directly addressed to the provider for clarification. German Tapia PA-C 11/01/2019 10:22 AM documented in this encounter Nursing Notes * Corinne Dorantes LPN - 11/01/2019 9:59 AM EST Chief Complaint Patient presents with Knee Pain Left knee pain Last Office Visit: 09/04/2019 Pain in left knee 05/05 today. Patient is continuing to attend PT but is not progressing. Had some relief between the first two injections but no relief after third. documented in this encounter Plan of Treatment Upcoming Encounters Date Type Specialty Care Team Description 11/07/2019 Office Visit Family Medicine Kevin Whiteside, [address] [place] [address] [phone] 11/08/2019 Office Visit Orthopedics Zack Teague DO [address] [place] [address] [phone] 11/22/2019 Office Visit Pulmonary Celsa Tafoya CRNP [address] [place] [address] [phone] 11/23/2019 Scheduled Telephone [facility] Pst Specialist [address] [place] [address] [phone] 01/02/2020 Office Visit Pharmacy [facility] [address] [place] [address] 02/04/2020 Office Visit Dermatology Apple Kaminski MD [address] [place] [address], [place] [address] [phone] 02/26/2020 Office Visit Cardiology Rey Woodall MD [address] [place] [address] [phone] Health Maintenance Due Date Last Done Comments Zoster Vaccines (2 of 3) 02/05/2016 12/11/2015 CKD PHOS USE SMARTSET 71095 12/29/2018 04/0 01/2018, 08/26/2009, 08/25/2009, Additional history exists DIABETES-FOOT EXAM 01/02/2020 01/01/2019, 0 12/29/2017, 10/21/2016, Additional history exists DIABETES-HGBA1C EVERY 6 MONTHS 02/07/2020 08/09/2019, 03/14/2019, 09/27/2018, Additional history exists CKD GFR USE SMARTSET 15284 03/11/202009/10, 08/09/2019, 07/20/2019, Additional history exists Yearly B-12 03/14/2020 03/14/2019, 05/16/2018 DIABETES-EYE EXAM 04/05/2020 04/05/2019, (Done elsewhere), 12/18/2009, Additional history exists DIABETES-URINE MICROALBUMIN EVERY 12 MONTHS 05/24/2020 05/24/2019, 02/26/2019, 12/23/2018, Additional history exists BREAST CANCER SCREENING DISCUSSION YEARLY AGES 40-75 07/10/2020 07/10/2019, 06/23/2018, 05/09/2015, Additional history exists CKD HGB USE SMARTSET 78933 09/10/202009/10, 07/20/2019, 02/26/2019, Additional history exists PAP [...] Documents on File Type Date Recorded Patient Dining Room Attendant Cafeteria Expl 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
--- OUTSIDE RECORDS SUMMARY | 2023-06-01 05:35 | External Medical Summary | Summary of Care ---
Author Name Unknown Organization [place] [address] Care Team Providers Care Crane Helper Name Role Phone Kevin Whiteside DO Primary Care Provider Reason for Visit * Reason Comments [facility]: Maintenance Encounter Details Date Type Department Care Team Description 11/09/2019 Telephone [facility] [address] [place] [address] [facility], Nurse [address] [place] [address] [phone] [facility]: Maintenance Allergies Active Allergy [...] 08/09/2019 Active Vitamin D, Ergocalciferol, 1.25 MG (17960 UT) CapsuleIndications:V itamin D deficiency Take 1 [...] MG TabletIndications:Le ukocytoclastic vasculitis ([facility]) Take 1/2 tab daily 45 Tab [...] CKD stage 3 05/14/2019 Other atherosclerosis of [place] arteries of extremities, left leg 02/26/2019 Lumbar [...] Telephone Encounter - Chrystal Mooney RN - 11/09/2019 3:25 PM EST Pt calling to ask for someone to moss picker urine specimen. [facility] ordered by dermatology for a possible UTI. [facility] did not know she needed to have done until she got home. [facility] has the urine container at home and can provide specimen. Aware to put to put in refrigerator. Aware Intake will reach out to [facility] to moss picker. TT to LES, LEXI RN will moss picker and asked for a PC to be scheduled for tomorrow for f/u. PC added. Called pt to make aware of RN to p/u. Chrystal Mooney RN [facility] Intake Chart to RNs. documented in this encounter Plan of Treatment Upcoming Encounters Date Type Specialty Care Team Description 11/10/2019 Scheduled Telephone [facility] Tasha Woods RN [address] [address] [phone] 11/22/2019 Office Visit Pulmonary Celsa Tafoya CRNP [address] [address] [phone] 11/23/2019 Scheduled Telephone [facility] Saira [facility] Installer [address] [address] [phone] 01/02/2020 Office Visit Pharmacy [facility] [place] [address] [place] [address] 02/04/2020 Office Visit Dermatology Apple Kaminski MD [address] [place] [address], [place] [address] [phone] 02/07/2020 Office Visit Orthopedics Zack Teague, DO [address] [place] [address] [phone] 02/26/2020 Office Visit Cardiology Rey Woodall MD [address] [place] [address] [phone] 05/08/2020 Office Visit Family Medicine Kevin Whiteside, DO [address] [place] [address] [phone] Health Maintenance Due Date Last Done Comments Zoster Vaccines (3 of 3) 01/02/2020 11/07/2019, 11/24 Yearly B-12 03/14/2020 03/14/2019, 05/16/2018 DIABETES-EYE EXAM 04/05/2020 04/05/2019, (Done elsewhere), 12/18/2009, Additional history exists CKD GFR USE SMARTSET 66430 05/07/202011/07, 09/10/2019, 08/09/2019, Additional history exists DIABETES-HGBA1C EVERY 6 MONTHS 05/07/2020 11/07/2019, 08/09/2019, 03/14/2019, Additional history exists DIABETES-URINE MICROALBUMIN EVERY 12 MONTHS 05/24/2020 05/24/2019, 02/26/2019, 12/23/2018, Additional history exists BREAST CANCER SCREENING DISCUSSION YEARLY AGES 40-75 07/10/2020 07/10/2019, 06/23/2018, 05/09/2015, Additional history exists CKD HGB USE SMARTSET 63604 09/10/202009/10, 07/20/2019, 02/26/2019, Additional history exists CKD PHOS USE SMARTSET 00136 11/07/202010/27, 12/29/2017, 08/26/2009, Additional history exists DIABETES-FOOT [...] Documents on File Type Date Recorded Patient Call Circuit Worker Expl 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
--- OUTSIDE RECORDS SUMMARY | 2023-06-01 05:35 | External Medical Summary | Summary of Care ---
Author Name Unknown Organization [place] [address] Care Team Providers Care Small Kick Press Operator Name Role Phone Carey Whitesider Lisa Primary [...] of 50.0 to 59.9 in adult ([facility]),Hypoxemia,ELISSA (obstructive sleep apnea),HTN, goal below 140/80 Take [...] [facility]) Inject 0.5 mg under the skin once a week. 3 Pre-filled Pen Syringe Dosing Unit 12 08/09/2019 Active DULoxetine (CYMBALTA) 30 MG CPEP Take 1 Cap by mouth daily. Take along with the 60mg dose for totally of 90mg daily. Do not cut, crush or chew 90 Cap 5 08/09/2019 Active Vitamin D, Ergocalciferol, 1.25 MG (91484 UT) CapsuleIndications:V itamin D deficiency Take 1 [...] clobetasol propionate (TEMOVATE) 0.05 % creamIndications:Vas culitis ([facility]) apply to rash on the legs and [...] [facility] Take 1 Cap by mouth 3 times [...] CKD stage 3 05/14/2019 Other atherosclerosis of [place] arteries of extremities, left leg 02/26/2019 Lumbar [...] 10/14/2014 Overview: ICD-10 update of inactive term [place] filter in place 08/19/2014 History of pulmonary [...] Medicine Kevin Whiteside DO [address] [place] [address] [phone] 11/08/2019 Office Visit Orthopedics Zack Teague DO [address] [place] [address] [phone] 11/22/2019 Office Visit Pulmonary Celsa Tafoya CRNP [address] [place] [address] [phone] 11/23/2019 Scheduled Telephone [facility] [place], [place], [facility] Sliver Machine Operator [address] [place] [address] [phone] 01/02/2020 Office Visit Pharmacy [facility] [place] [address] [place] [address] 02/04/2020 Office Visit Dermatology Apple Kaminski MD [address] [facility] [place] [address] [phone] 02/26/2020 Office Visit Cardiology Rey Woodall MD [address] [facility] [place] [address] [phone] Health Maintenance Due Date Last Done Comments Zoster Vaccines (2 of 3) 02/05/2016 12/11/2015 CKD PHOS USE SMARTSET 86633 12/29/2018 04/01/2018, 08/26/2009, 08/25/2009, Additional history exists DIABETES-FOOT EXAM 01/02/2020 01/01/2019, 0 12/29/2017, 10/21/2016, Additional history exists DIABETES-HGBA1C EVERY 6 MONTHS 02/07/2020 08/09/2019, 03/14/2019, 09/27/2018, Additional history exists CKD GFR USE SMARTSET 17042 03/11/202009/10, 08/09/2019, 07/20/2019, Additional history exists Yearly B-12 03/14/2020 03/14/2019, 05/16/2018 DIABETES-EYE EXAM 04/05/2020 04/05/2019, (Done elsewhere), 12/18/2009, Additional history exists DIABETES-URINE MICROALBUMIN EVERY 12 MONTHS 05/24/2020 05/24/2019, 02/26/2019, 12/23/2018, Additional history exists BREAST CANCER SCREENING DISCUSSION YEARLY AGES 40-75 07/10/2020 07/10/2019, 06/23/2018, 05/09/2015, Additional history exists CKD HGB USE SMARTSET 43324 09/10/202009/10, 07/20/2019, 02/26/2019, Additional history exists PAP [...] Documents on File Type Date Recorded Patient Larriman Expl 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
--- OUTSIDE RECORDS SUMMARY | 2023-06-01 05:35 | External Medical Summary ---
Author Name Unknown Address [facility] [place] [address] Phone Organization K01:[place] [address] Laboratory Report Ordering Provider Test Date Status LONG CAMARENA 11/07/2019 15:04:00 Final Observation Date Value Abnormality Reference (Units ) Status Phosphate 11/07/2019 22:53 3.9 2.5-4.8 (mg/d L) Final Performing Location [place] [id number]
--- OUTSIDE RECORDS SUMMARY | 2023-06-01 05:35 | External Medical Summary ---
Author Name Unknown Address [facility] [address] Phone Organization K01:[place] [id number] Laboratory Report Ordering Provider Test Date Status LONG CAMARENA 11/07/2019 15:04:00 Final Observation Date Value Abnormality Reference (Units ) Status HbA1C 11/07/2019 22:57 8.3 Above high normal 4.0-5 .6 (%) Final Performing Location [place] [id number]
--- OUTSIDE RECORDS SUMMARY | 2023-06-01 05:35 | External Medical Summary | Summary of Care ---
Author Name Unknown Organization [place] [address] Care Team Providers Care Title Camera Operator Name Role Phone Whiteside Kevin Ocampomelinda Primary Care Provider Reason for Visit * Reason Comments Test Results Encounter Details Date Type Department Care Team Description 11/09/2019 Telephone Dermatology [facility] [address] [facility] [address] [place] [address] Apple Kaminski MD [address] [place] [address] Test Results Allergies Active Allergy [...] 3 08/30/2018 Active Blood Glucose Monitoring Suppl (PulsityTOUCH ULTRA 2) w/Device KIT Use to test [...] 08/09/2019 Active Vitamin D, Ergocalciferol, 1.25 MG (42952 UT) CapsuleIndications:V itamin D deficiency Take 1 [...] CKD stage 3 05/14/2019 Other atherosclerosis of [place] arteries of extremities, left leg 02/26/2019 Lumbar [...] Miscellaneous Notes * Telephone Encounter - Angi Balderrama LPN - 11/09/2019 1:15 PM EST Left message asking that pt come in for Urine C+S when she can because of her symptoms. * Telephone Encounter - Krissy Baker DO [...] Celsa Tafoya CRNP [address] [place] [address] [phone] 11/23/2019 Scheduled Telephone [facility] Heavy Truck Mechanic [address] [place] [address] [phone] 01/02/2020 Office Visit Pharmacy [facility] [place] [address] [place] [address] 02/04/2020 Office Visit Dermatology Apple Kaminski MD [address] [place] [address] [phone] 02/07/2020 Office Visit Orthopedics Zack Teague, [address] [address] [address] 02/26/2020 Office Visit Cardiology Rey Woodall MD [address] [place] [address] [phone] 05/08/2020 Office Visit Family Medicine Kevin Whiteside, [address] [place] [address] [phone] Scheduled Orders Name Type Priority Associated Diagnoses Orde r Schedule CULTURE QUANT URINE Lab Routine Dysuria Ordered: 11/09/2019 Health Maintenance Due Date Last Done Comments Zoster Vaccines (3 of 3) 01/02/2020 11/07/2019, 11/24 Yearly B-12 03/14/2020 03/14/2019, 05/16/2018 DIABETES-EYE EXAM 04/05/2020 04/05/2019, (Done elsewhere), 12/18/2009, Additional history exists CKD GFR USE SMARTSET 51718 05/07/202011/07, 09/10/2019, 08/09/2019, Additional history exists DIABETES-HGBA1C EVERY 6 MONTHS 05/07/2020 11/07/2019, 08/09/2019, 03/14/2019, Additional history exists DIABETES-URINE MICROALBUMIN EVERY 12 MONTHS 05/24/2020 05/24/2019, 02/26/2019, 12/23/2018, Additional history exists BREAST CANCER SCREENING DISCUSSION YEARLY AGES 40-75 07/10/2020 07/10/2019, 06/23/2018, 05/09/2015, Additional history exists CKD HGB USE SMARTSET 22879 09/10/202009/10, 07/20/2019, 02/26/2019, Additional history exists CKD PHOS USE SMARTSET 32138 11/07/202010/27, 12/29/2017, 08/26/2009, Additional history exists DIABETES-FOOT [...] Documents on File Type Date Recorded Patient Mercerizing Range Feeder Expl 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
--- OUTSIDE RECORDS SUMMARY | 2023-06-01 05:35 | External Medical Summary | Summary of Care ---
Author Name Unknown Organization [place] [address] Care Team Providers Care Brilliandeer Lopper Name Role Phone Carey Whitesider Lisa Primary [...] 50.0 to 59.9 in adult ([facility]),Hypoxemia,ELISSA (obstructive sleep apnea),HTN, goal below 140/80 [...] of 7.0%-8.0% ([facility]) Inject 0.5 mg under the skin once a week. 3 Pre-filled Pen Syringe Dosing Unit 12 08/09/2019 Active DULoxetine (CYMBALTA) 30 MG CPEP Take 1 Cap by mouth daily. Take along with the 60mg dose for totally of 90mg daily. Do not cut, crush or chew 90 Cap 5 08/09/2019 Active Vitamin D, Ergocalciferol, 1.25 MG (10724 UT) CapsuleIndications:V itamin D deficiency Take 1 [...] clobetasol propionate (TEMOVATE) 0.05 % creamIndications:Vas culitis ([facility]) apply to rash on the legs [...] CKD stage 3 05/14/2019 Other atherosclerosis of cahto arteries of extremities, left leg 02/26/2019 Lumbar [...] 10/14/2014 Overview: ICD-10 update of inactive term [place] filter in place 08/19/2014 History of pulmonary [...] Medicine Kevin Whiteside DO [address] [address] [phone] 11/08/2019 Office Visit Orthopedics Zack Teague DO [address] [address] [phone] 11/22/2019 Office Visit Pulmonary Celsa Tafoya CRNP [address] [place] [address] [phone] 11/23/2019 Scheduled Telephone [facility] [place], [place], [facility] Emergency Medical Services Coordinator [address] [place] [address] [phone] 01/02/2020 Office Visit Pharmacy [facility] [place] [address] [place] [address] 02/04/2020 Office Visit Dermatology Apple Kaminski MD [address] [place] [address] [phone] 02/26/2020 Office Visit Cardiology Rey Woodall MD [address] [facility] [place] [place] [address] [phone] Health Maintenance Due Date Last Done Comments Zoster Vaccines (2 of 3) 02/05/2016 12/11/2015 CKD PHOS USE SMARTSET 65559 12/29/2018 04/01/2018, 08/26/2009, 08/25/2009, Additional history exists DIABETES-FOOT EXAM 01/02/2020 01/01/2019, 0 12/29/2017, 10/21/2016, Additional history exists DIABETES-HGBA1C EVERY 6 MONTHS 02/07/2020 08/09/2019, 03/14/2019, 09/27/2018, Additional history exists CKD GFR USE SMARTSET 54545 03/11/202009/10, 08/09/2019, 07/20/2019, Additional history exists Yearly B-12 03/14/2020 03/14/2019, 05/16/2018 DIABETES-EYE EXAM 04/05/2020 04/05/2019, (Done elsewhere), 12/18/2009, Additional history exists DIABETES-URINE MICROALBUMIN EVERY 12 MONTHS 05/24/2020 05/24/2019, 02/26/2019, 12/23/2018, Additional history exists BREAST CANCER SCREENING DISCUSSION YEARLY AGES 40-75 07/10/2020 07/10/2019, 06/23/2018, 05/09/2015, Additional history exists CKD HGB USE SMARTSET 62461 09/10/202009/10, 07/20/2019, 02/26/2019, Additional history exists PAP [...] on File Type Date 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
--- OUTSIDE RECORDS SUMMARY | 2023-06-01 05:35 | External Medical Summary ---
Author Name Unknown Address [facility] [place] [address] Phone Organization K01:[place] [address] [place] [address] Laboratory Report Ordering Provider Test Date Status MABEL TAYLOR 11/07/2019 15:07:00 Final Observation Date Value Abnormality Reference (Units ) Status Color Ur Auto 11/07/2019 21:46 STRAW Abnormal YEL Final Clarity, Urine 11/07/2019 21:46 CLEAR CLEAR Final Glucose Ur Strip.auto-mCnc 11/07/2019 21:46 NEGATIVE NEG (mg/dL) Final Bilirub Ur Ql Strip.auto 11/07/2019 21:46 NEGATIVE NEG Final Ketones Ur Strip.auto-nc 11/07/2019 21:46 NEGATIVE NEG (mg/dL) Final Specific gravity, Urine 11/07/2019 21:46 1.014 1.003-1.030 Final Hemoglobin [Presence] in Urine by Automated test strip 11/07/2019 21:46 NEGATIVE NEG Final pH, Urine 11/07/2019 21:46 6.0 5.0-7.5 (units) Final Prot Ur Strip.auto-mCnc 11/07/2019 21:46 NEGATIVE NEG (mg/dL) Final Urobilinogen Ur Strip.auto-nc 11/07/2019 21:46 NORMAL NORM (mg/dL) Final Nitrite Ur Ql Strip.auto 11/07/2019 21:46 NEGATIVE NEG Final Leukocyte esterase [Presence} in Urine by Automated test strip 11/07/2019 21:46 TRACE Abnormal NEG Final Bacteria/area UmS Auto 11/07/2019 21:46 51-100 Abnormal [id number] (/HPF) Final WBC No./area UrnS Auto 11/07/2019 21:46 6-9 Abnormal U02 (/HPF) Final RBC No./area UrnS Auto 11/07/2019 21:46 0-2 U02 (/HPF) Final Performing Location [facility] [address] [facility] [address]
--- OUTSIDE RECORDS SUMMARY | 2023-06-01 05:36 | External Medical Summary | Summary of Care ---
Author Name Unknown Organization [place] [address] Care Team Providers Care Fur Puller Name Role Phone Migue Whiteside DO Primary Care Provider Reason for Visit * Reason Comments Medication Refill Encounter Details Date Type Department Care Team Description 10/24/2019 Refill Family Practice [facility] [address] [place] [address] Migue Whiteside DO [address] [facility] [place] [address] [phone] Anxiety state Allergies Active Allergy Reactions Severity Noted Date Comments Pollen 05/18/2019 Heparin 09/04/2009 Heparin Induced Thrombocytopenia Empagliflozin Other (Please comment) Medium 05/17/2018 3 yeast infections in 6 weeks after starting Morphine And Related 09/16/1997 Hallucinations Tetanus Toxoid Other (Please comment) 06/15/2011 Passed out documented as of this encounter (statuses as of 10/25/2019) Medications Medication Sig Dispensed Refills Start Date [...] 3 08/30/2018 Active Blood Glucose Monitoring Suppl (AdCampTOUCH ULTRA 2) w/Device KIT Use to test [...] two weeks. 60 g 1 02/13/2019 Active Additional Information Patient not taking. Reported on 10/18/2019 3:20 PM Insulin Pen Needle (BD PEN NEEDLE SHORT [...] of 7.0%-8.0% ([facility]) Inject 0.5 mg under the skin once a week. 3 Pre-filled Pen Syringe Dosing Unit 12 08/09/2019 Active DULoxetine (CYMBALTA) 30 MG CPEP Take 1 Cap by mouth daily. Take along with the 60mg dose for totally of 90mg daily. Do not cut, crush or chew 90 Cap 5 08/09/2019 Active Vitamin D, Ergocalciferol, 1.25 MG (57074 UT) CapsuleIndications: Vitamin D deficiency Take 1 [...] OTHER MEDS 90 Tab 1 09/02/2019 Active colchicine 0.6 MG TabletIndications:V asculitis (HCC) Take 1/2 tab twice daily 30 Tab 0 09/10/2019 Active Additional Information Patient not taking. Reported on 10/18/2019 3:20 PM clobetasol propionate (TEMOVATE) 0.05 % creamIndications:Va sculitis ([facility]) apply to rash on the legs and arm twice daily x 1-2 weeks. 30 g 5 09/10/2019 Active Additional Information Patient not taking. Reported on 10/18/2019 3:20 PM insulin aspart (INSULIN ASPART) 100 UNIT/ML injection [...] 0 10/19/2019 Active clonazePAM (KLONOPIN) 0.5 MG TabletIndications:A nxiety state Take 1 Tab by mouth 2 times a day. 60 Tab 0 10/25/2019 Active Nortriptyline HCl (PAMELOR) 50 MG CapsuleIndications: Fibromyalgia Take 1 Cap by mouth at bedtime. 90 Cap 5 08/01/2018 10/24/19 20 Discontinu ed(Refill) clonazePAM (KLONOPIN) 0.5 MG TabletIndications:A nxiety state TAKE ONE TABLET BY MOUTH TWICE DAILY 60 Tab 0 09/18/2019 10/24/19 20 Discontinu ed(Refill) Hospital, Clinic, or Other Facility Administered Medication Ordered Dose Route Frequency Start Date End Date Status levalbuterol (XOPENEX) inhalation solution 0.63 mgIndications:Wheezing 0.63 mg NEBULIZER Q4H PRN 09/12/2019 Ac tive levalbuterol (XOPENEX) inhalation solution 1.25 mgIndications:AVENDAÑO (dyspnea on exertion),Wheezing 1.25 mg NEBULIZER Q4H PRN 09/13/2019 Active documented as of this encounter (statuses as of 10/25/2019) Active Problems Problem Noted Date 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 Authorizing Provider: MIGUE WHITESIDE * Telephone Encounter - Zack Lindsey, [facility] - 10/25/2019 7:51 AM EST Pending Prescriptions: Disp Refills clonazePAM (KLONOPIN) 0.5 MG Tablet 60 Tab 0 Sig: Take 1 Tab by mouth 2 times a day. * Telephone Encounter - Zack Lindsey [facility] - 10/25/2019 7:50 AM EST I have reviewed the patients controlled substance dispensing history in the Prescription Drug Monitoring Program in compliance with the [facility] regulations before prescribing a controlled substance. PDMP checked on 10/25/2019. Patient requesting: Clonazepam 0.5mg, filled 09/18/19, for #60 for a 30 day supply. Other recent controlled medication fills: Tramadol 50mg, filled 10/20/19, for #90 for a 30 day supply. Last Office Visit: 09/05/2019 Next Office Visit: 11/07/2019 Scheduled Provider(s): Migue Whiteside, Date medication is due for refill: 10/17/2019 Pharmacy: [id number] Is this request for a controlled [...] Results Review. Please approve if appropriate. Thank You, Zack Reeder [facility] Staff Pharmacist Pharmacy Refill Call Center 10/25/2019, 7:50 AM * Telephone Encounter - Tisha Tejal, [facility] - 10/24/2019 8:28 AM EST JM Pending Prescriptions: Disp Refills clonazePAM (KLONOPIN) 0.5 MG Tablet 60 Tab 0 Sig: Take 1 Tab by mouth 2 times a day. Last Office Visit: 09/05/2019 Next Office Visit: 11/07/2019 Scheduled Provider(s): Migue Whiteside, DO If no future appointments scheduled, and last appointment is greater than a year ago, please schedule patient for a follow-up appointment Last date the medication was ordered: 09/18/2019 Pharmacy: Is this request for a controlled substance?Yes and Urine Drug Screen not completed Urine Drug Screen: Results for orders [...] Results Component Value Date/Time CREAT 2.0 (H) 09/10/2019 07:48 AM POTASSIUM 4.9 09/10/2019 07:48 AM TSH 0.88 03/14/2019 01:54 PM LDLCALC UNINTERPRETABLE RESULT 03/14/2019 01:54 PM LDLDIRECT 109 07/14/2017 12:35 PM ALT 18 07/20/2019 10:42 AM HGBA1C 9.4 (H) 08/09/2019 11:02 AM documented in this encounter Plan of Treatment Upcoming Encounters Date Type Specialty Care Team Description 10/29/2019 Office Visit Pharmacy [facility] [place] [address] [place] [address] 10/29/2019 Office Visit Dermatology Apple Kaminski MD [address] [place] [address] [phone] 11/01/2019 Office Visit Orthopedics Zonia Cheema, [address] [place] [address] [phone] 11/07/2019 Office Visit Family Medicine Migue Whiteside, [address] [place] [address] [phone] 11/22/2019 Office Visit Pulmonary Celsa Tafoya CRNP [address] [place] [address] [phone] 11/23/2019 Scheduled Telephone [facility] [place], [facility] Chaser Apprentice [address] [address] [phone] 02/26/2020 Office Visit Cardiology Rey Woodall MD [address] [address] [phone] Health Maintenance Due Date Last Done Comments Zoster Vaccines (2 of 3) 02/05/2016 12/11/2015 CKD PHOS USE SMARTSET 66751 12/29/2018 04/0 01/2018, 08/26/2009, 08/25/2009, Additional history exists DIABETES-FOOT EXAM 01/02/2020 01/01/2019, 0 12/29/2017, 10/21/2016, Additional history exists DIABETES-HGBA1C EVERY 6 MONTHS 02/07/2020 08/09/2019, 03/14/2019, 09/27/2018, Additional history exists CKD GFR USE SMARTSET 66585 03/11/202009/10, 08/09/2019, 07/20/2019, Additional history exists Yearly B-12 03/14/2020 03/14/2019, 05/16/2018 DIABETES-EYE EXAM 04/05/2020 04/05/2019, (Done elsewhere), 12/18/2009, Additional history exists DIABETES-URINE MICROALBUMIN EVERY 12 MONTHS 05/24/2020 05/24/2019, 02/26/2019, 12/23/2018, Additional history exists BREAST CANCER SCREENING DISCUSSION YEARLY AGES 40-75 07/10/2020 07/10/2019, 06/23/2018, 05/09/2015, Additional history exists CKD HGB USE SMARTSET 52077 09/10/202009/10, 07/20/2019, 02/26/2019, Additional history exists PAP [...] Documents on File Type Date 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
--- OUTSIDE RECORDS SUMMARY | 2023-06-01 05:36 | External Medical Summary | Summary of Care ---
Author Name Unknown Organization [place] [address] Care Team Providers Care Tool Room Attendant Name Role Phone Whiteside Kevin Gonzalez DO Primary Care Provider Reason for Visit * Reason Comments Test Results Encounter Details Date Type Department Care Team Description 10/30/2019 Telephone Pulmonary Medicine, [facility] [address] [facility] [place] [address] Celsa Tafoya CRNP [address] [facility] [place] [address] Test Results Allergies Active Allergy Reactions Severity Noted Date Comments Pollen 05/18/2019 Heparin 09/04/2009 Heparin Induced Thrombocytopenia Empagliflozin Other (Please comment) Medium 05/17/2018 3 yeast infections in 6 weeks after starting Morphine And Related 09/16/1997 Hallucinations Tetanus Toxoid Other (Please comment) 06/15/2011 Passed out documented as of this encounter (statuses as of 10/30/2019) Medications Medication Sig Dispensed Refills Start Date [...] 08/09/2019 Active Vitamin D, Ergocalciferol, 1.25 MG (50413 UT) CapsuleIndications:V itamin D deficiency Take 1 [...] as of this encounter (statuses as of 10/30/2019) Active Problems Problem Noted Date 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, NYHA class 1 and CKD stage 3 05/14/2019 Other atherosclerosis of pechanga arteries of extremities, left leg 02/26/2019 Lumbar [...] as of this encounter (statuses as of 10/30/2019) Resolved Problems Problem Noted Date Resolved Date [...] as of this encounter (statuses as of 10/30/2019) Immunizations Name Administration Dates Next Due Pneumococcal [...] Encounters Date Type Specialty Care Team Description 11/01/2019 Office Visit Orthopedics Zonia Cheema, [address] [place] [address] [phone] 11/07/2019 Office Visit Family Medicine Keivn Whiteside DO [address] [place] [address] [phone] 11/22/2019 Office Visit Pulmonary Celsa Tafoya CRNP [address] [place] [address] [phone] 11/23/2019 Scheduled Telephone [facility] [place], [place], [facility] Duco Polisher [address] [facility] [place] [address] [phone] 01/02/2020 Office Visit Pharmacy [facility] [place] [address] [facility] [place] [address] 02/04/2020 Office Visit Dermatology Apple Kaminski MD [address] [place] [address] [phone] 02/26/2020 Office Visit Cardiology Rey Woodall MD [address] [facility] [place] [address] [phone] Health Maintenance Due Date Last Done Comments Zoster Vaccines (2 of 3) 02/05/2016 12/11/2015 CKD PHOS USE SMARTSET 86219 12/29/2018 04/0 01/2018, 08/26/2009, 08/25/2009, Additional history exists DIABETES-FOOT EXAM 01/02/2020 01/01/2019, 0 12/29/2017, 10/21/2016, Additional history exists DIABETES-HGBA1C EVERY 6 MONTHS 02/07/2020 08/09/2019, 03/14/2019, 09/27/2018, Additional history exists CKD GFR USE SMARTSET 34996 03/11/202009/10, 08/09/2019, 07/20/2019, Additional history exists Yearly B-12 03/14/2020 03/14/2019, 05/16/2018 DIABETES-EYE EXAM 04/05/2020 04/05/2019, (Done elsewhere), 12/18/2009, Additional history exists DIABETES-URINE MICROALBUMIN EVERY 12 MONTHS 05/24/2020 05/24/2019, 02/26/2019, 12/23/2018, Additional history exists BREAST CANCER SCREENING DISCUSSION YEARLY AGES 40-75 07/10/2020 07/10/2019, 06/23/2018, 05/09/2015, Additional history exists CKD HGB USE SMARTSET 21981 09/10/202009/10, 07/20/2019, 02/26/2019, Additional history exists PAP [...] Documents on File Type Date Recorded 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
--- OUTSIDE RECORDS SUMMARY | 2023-06-01 05:36 | External Medical Summary | Summary of Care ---
Author Name Unknown Organization [place] [address] Care Team Providers Care Religious Assistant Name Role Phone Kevin Whitesidemelinda Primary Care Provider Reason for Visit * Reason Comments Appointment Encounter Details Date Type Department Care Team Description 10/24/2019 Telephone Dermatology [facility] [address] [facility] [address] [place] [address] Apple Kaminksi MD [address] [place] [address] Appointment Allergies Active Allergy Reactions Severity Noted Date Comments Pollen 05/18/2019 Heparin 09/04/2009 Heparin Induced Thrombocytopenia Empagliflozin Other (Please comment) Medium 05/17/2018 3 yeast infections in 6 weeks after starting Morphine And Related 09/16/1997 Hallucinations Tetanus Toxoid Other (Please comment) 06/15/2011 Passed out documented as of this encounter (statuses as of 10/24/2019) Medications Medication Sig Dispensed Refills Start Date End Date Status PRILOSEC 20 MG PO CPDR one tablet daily 0 Active docusate sodium (STOOL SOFTENER) 100 MG Capsule Take 100 mg by mouth 2 times a day as needed for Constipation. 0 Active cyclobenzaprine (FLEXERIL) 10 MG Tablet TAKE ONE TABLET BY MOUTH AT BEDTIME NEEDED FOR MUSCLE SPASM 90 Tab 2 08/01/2018 Active Nortriptyline HCl (PAMELOR) 50 MG CapsuleIndications:F ibromyalgia Take 1 Cap by mouth at bedtime. 90 Cap 5 08/01/2018 Active ONETOUCH DELICA LANCETS 33G MISC [...] 08/09/2019 Active Vitamin D, Ergocalciferol, 1.25 MG (18849 UT) CapsuleIndications:V itamin D deficiency Take 1 [...] Tab 1 09/02/2019 Active colchicine 0.6 MG TabletIndications:Va sculitis (HCC) Take 1/2 tab twice daily 30 Tab 0 09/10/2019 Active Additional Information Patient not taking. Reported on 10/18/2019 3:20 PM clobetasol propionate (TEMOVATE) 0.05 % creamIndications:Vas culitis (HCC) apply to rash on the legs and arm twice daily x 1-2 weeks. 30 g 5 09/10/2019 Active Additional Information Patient not taking. Reported on 10/18/2019 3:20 PM insulin aspart (INSULIN ASPART) 100 UNIT/ML injection USE IN INSULIN PUMP UP TO 200 UNITS PER DAY 30 mL 7 09/13/2019 Active clonazePAM (KLONOPIN) 0.5 MG TabletIndications:An xiety state TAKE ONE TABLET BY MOUTH TWICE DAILY 60 Tab 0 09/18/2019 Active DULoxetine (CYMBALTA) 60 MG CPEPIndications:Fibr omyalgia,Moderate [...] Pain, Severe. 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 * Telephone Encounter - Clementine Orellana OSA - 10/24/2019 7:31 AM EST Pt calliong requesting an appt. 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 Please call back at [phone]. documented in this encounter Plan of Treatment Upcoming Encounters Date Type Specialty Care Team Description 10/29/2019 Office Visit Pharmacy [facility] [place] [address] [address] [address] 10/29/2019 Office Visit Dermatology Apple Kaminski MD [address] [place] [address] [phone] 11/01/2019 Office Visit Orthopedics Zonia Cheema, [address] [address] [phone] 11/07/2019 Office Visit Family Medicine Kevin Whiteside, [address] [address] [phone] 11/22/2019 Office Visit Pulmonary Celsa Tafoya CRNP [address] [address] [phone] 11/23/2019 Scheduled Telephone [facility] Saira [place] [facility] Platform Loader [address] [address] [phone] 02/26/2020 Office Visit Cardiology Rey Woodall MD [address] [address] [phone] Health Maintenance Due Date Last Done Comments Zoster Vaccines (2 of 3) 02/05/2016 12/11/2015 CKD PHOS USE SMARTSET 24382 12/29/2018 04/0 01/2018, 08/26/2009, 08/25/2009, Additional history exists DIABETES-FOOT EXAM 01/02/2020 01/01/2019, 0 12/29/2017, 10/21/2016, Additional history exists DIABETES-HGBA1C EVERY 6 MONTHS 02/07/2020 08/09/2019, 03/14/2019, 09/27/2018, Additional history exists CKD GFR USE SMARTSET 32964 03/11/202009/10, 08/09/2019, 07/20/2019, Additional history exists Yearly B-12 03/14/2020 03/14/2019, 05/16/2018 DIABETES-EYE EXAM 04/05/2020 04/05/2019, (Done elsewhere), 12/18/2009, Additional history exists DIABETES-URINE MICROALBUMIN EVERY 12 MONTHS 05/24/2020 05/24/2019, 02/26/2019, 12/23/2018, Additional history exists BREAST CANCER SCREENING DISCUSSION YEARLY AGES 40-75 07/10/2020 07/10/2019, 06/23/2018, 05/09/2015, Additional history exists CKD HGB USE SMARTSET 09638 09/10/202009/10, 07/20/2019, 02/26/2019, Additional history exists PAP [...] Documents on File Type Date Recorded 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
--- OUTSIDE RECORDS SUMMARY | 2023-06-01 05:36 | External Medical Summary | Summary of Care ---
Author Name Unknown Organization [place] [address] Care Team Providers Care Cellar Pumper Name Role Phone Carey Whitesidelidia Ocampomelinda Primary Care Provider Reason for Visit * Reason Comments Medication Refill Encounter Details Date Type Department Care Team Description 10/18/2019 Refill [facility] [address] [place] [address] Malissa Castro, LEXI [address] [facility] [place] [address] [phone] Chronic pain syndrome Allergies Active Allergy Reactions Severity Noted Date Comments Pollen 05/18/2019 Heparin 09/04/2009 Heparin Induced Thrombocytopenia Empagliflozin Other (Please comment) Medium 05/17/2018 3 yeast infections in 6 weeks after starting Morphine And Related 09/16/1997 Hallucinations Tetanus Toxoid Other (Please comment) 06/15/2011 Passed out documented as of this encounter (statuses as of 10/19/2019) Medications Medication Sig Dispensed Refills Start Date [...] 08/01/2018 Active Nortriptyline HCl (PAMELOR) 50 MG CapsuleIndications: [...] goal of 7.0%-8.0% ([facility]) Inject 0.5 mg under the skin once a week. 3 Pre-filled Pen Syringe Dosing Unit 12 08/09/2019 Active DULoxetine (CYMBALTA) 30 MG CPEP Take 1 Cap by mouth daily. Take along with the 60mg dose for totally of 90mg daily. Do not cut, crush or chew 90 Cap 5 08/09/2019 Active Vitamin D, Ergocalciferol, 1.25 MG (43920 UT) CapsuleIndications: Vitamin D deficiency Take 1 [...] 7 09/13/2019 Active clonazePAM (KLONOPIN) 0.5 MG TabletIndications:A nxiety state TAKE ONE TABLET BY MOUTH TWICE DAILY 60 Tab 0 09/18/2019 Active DULoxetine (CYMBALTA) 60 MG CPEPIndications:Fib romyalgia,Moderate [...] Pain, Severe. 90 Tab 0 10/19/2019 Active traMADol (ULTRAM) 50 MG TabletIndications:C hronic pain syndrome Take 1 Tab by mouth every 8 hours as needed for Pain, Severe. 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, NYHA class 1 and CKD stage 3 05/14/2019 Other atherosclerosis of [place] arteries of extremities, left leg 02/26/2019 Lumbar [...] as of this encounter (statuses as of 10/19/2019) Resolved Problems Problem Noted Date Resolved Date [...] as of this encounter (statuses as of 10/19/2019) Immunizations Name Administration Dates Next Due Pneumococcal [...] encounter Miscellaneous Notes * Telephone Encounter - Jayme Walsh DO - 10/19/2019 12:34 PM EST Signed Prescriptions: Disp Refills traMADol (ULTRAM) 50 MG Tablet 90 Tab 0 Sig: Take 1 Tab by mouthevery 8 hours as needed for Pain, Severe.Authorizing Provider: JAYME WALSH * Telephone Encounter - Malissa Castro RN - 10/18/2019 5:30 PM EST Patient states she had requested refill of this medication but was advised that it had not been approved by pharmacy. She takes for her fibromyalgia and left knee pain. documented in this encounter Plan of Treatment Upcoming Encounters Date Type Specialty Care Team Description 10/23/2019 Imaging Radiology 10/29/2019 Office Visit [facility] [address] [place] [address] 11/07/2019 Office Visit Family Medicine Kevin Whiteside DO [address] [place] [address] [phone] 11/22/2019 Office Visit Pulmonary Celsa Tafoya CRNP [address] [place] [address] [phone] 11/23/2019 Scheduled Telephone [facility] [place], Saira, Community Health Campaign Developer [address] [place] [address] [phone] 02/26/2020 Office Visit Cardiology Rey Woodall MD [address] [place] [address] [phone] Health Maintenance Due Date Last Done Comments Zoster Vaccines (2 of 3) 02/05/2016 12/11/2015 CKD PHOS USE SMARTSET 28338 12/29/2018 04/0 01/2018, 08/26/2009, 08/25/2009, Additional history exists DIABETES-FOOT EXAM 01/02/2020 01/01/2019, 0 12/29/2017, 10/21/2016, Additional history exists DIABETES-HGBA1C EVERY 6 MONTHS 02/07/2020 08/09/2019, 03/14/2019, 09/27/2018, Additional history exists CKD GFR USE SMARTSET 18504 03/11/202009/10, 08/09/2019, 07/20/2019, Additional history exists Yearly B-12 03/14/2020 03/14/2019, 05/16/2018 DIABETES-EYE EXAM 04/05/2020 04/05/2019, (Done elsewhere), 12/18/2009, Additional history exists DIABETES-URINE MICROALBUMIN EVERY 12 MONTHS 05/24/2020 05/24/2019, 02/26/2019, 12/23/2018, Additional history exists BREAST CANCER SCREENING DISCUSSION YEARLY AGES 40-75 07/10/2020 07/10/2019, 06/23/2018, 05/09/2015, Additional history exists CKD HGB USE SMARTSET 57286 09/10/202009/10, 07/20/2019, 02/26/2019, Additional history exists PAP [...] on File Type Date Recorded Patient Inspector Outside Steam Distribution Expl 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
--- OUTSIDE RECORDS SUMMARY | 2023-06-01 05:36 | External Medical Summary | Summary of Care ---
Author Name Unknown Organization [place] [address] Care Team Providers Care Mason Apprentice Name Role Phone Carey Whitesider Lisa Primary [...] of 7.0%-8.0% ([facility]) Inject 0.5 mg under the skin once a week. 3 Pre-filled Pen Syringe Dosing Unit 12 08/09/2019 Active DULoxetine (CYMBALTA) 30 MG CPEP Take 1 Cap by mouth daily. Take along with the 60mg dose for totally of 90mg daily. Do not cut, crush or chew 90 Cap 5 08/09/2019 Active Vitamin D, Ergocalciferol, 1.25 MG (92833 UT) CapsuleIndications:V itamin D deficiency Take 1 [...] (TEMOVATE) 0.05 % creamIndications:Vas culitis ([facility]) apply to rash on the legs [...] CKD stage 3 05/14/2019 Other atherosclerosis of [place] arteries of extremities, left leg 02/26/2019 Lumbar [...] 10/14/2014 Overview: ICD-10 update of inactive term [place] filter in place 08/19/2014 History of pulmonary [...] Medicine Kevin Whiteside DO [address] [place] [address] [phone] 11/08/2019 Office Visit Orthopedics Zack Teague DO [address] [place] [address] [phone] 11/22/2019 Office Visit Pulmonary Celsa Tafoya CRNP [address] [place] [address] [phone] 11/23/2019 Scheduled Telephone [facility] [place], [place], On License Of [facility] [employer] [address] [place] [address] [phone] 01/02/2020 Office Visit Pharmacy [facility] [place] [address] [place] [address] 02/04/2020 Office Visit Dermatology Apple Kaminski MD [address] [place] [address] [phone] 02/26/2020 Office Visit Cardiology Rey Woodall MD [address] [facility] [place] [address] [phone] Health Maintenance Due Date Last Done Comments Zoster Vaccines (2 of 3) 02/05/2016 12/11/2015 CKD PHOS USE SMARTSET 52699 12/29/2018 04/01/2018, 08/26/2009, 08/25/2009, Additional history exists DIABETES-FOOT EXAM 01/02/2020 01/01/2019, 0 12/29/2017, 10/21/2016, Additional history exists DIABETES-HGBA1C EVERY 6 MONTHS 02/07/2020 08/09/2019, 03/14/2019, 09/27/2018, Additional history exists CKD GFR USE SMARTSET 79742 03/11/202009/10, 08/09/2019, 07/20/2019, Additional history exists Yearly B-12 03/14/2020 03/14/2019, 05/16/2018 DIABETES-EYE EXAM 04/05/2020 04/05/2019, (Done elsewhere), 12/18/2009, Additional history exists DIABETES-URINE MICROALBUMIN EVERY 12 MONTHS 05/24/2020 05/24/2019, 02/26/2019, 12/23/2018, Additional history exists BREAST CANCER SCREENING DISCUSSION YEARLY AGES 40-75 07/10/2020 07/10/2019, 06/23/2018, 05/09/2015, Additional history exists CKD HGB USE SMARTSET 53538 09/10/202009/10, 07/20/2019, 02/26/2019, Additional history exists PAP [...] Documents on File Type Date Recorded Patient Lottery Clerk Expl 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
--- OUTSIDE RECORDS SUMMARY | 2023-06-01 05:36 | External Medical Summary | Summary of Care ---
Author Name Unknown Organization [place] [address] Care Team Providers Care Jig Filler Name Role Phone Whiteside Kevin Ocampomelinda Primary Care Provider Reason for Visit * Reason Comments [facility]: Maintenance Encounter Details Date Type Department Care Team Description 10/18/2019 Home Visit [facility] [address] [facility] [place] [address] Malissa Castro, RN [address] [facility] [place] [address] [phone] Benign hypertensive heart and kidney disease with diastolic CHF, NYHA class 1 and CKD stage 3 ([facility])* Allergies Active Allergy Reactions Severity Noted Date Comments Pollen 05/18/2019 Heparin 09/04/2009 Heparin Induced Thrombocytopenia Empagliflozin Other (Please comment) Medium 05/17/2018 3 yeast infections in 6 weeks after starting Morphine And Related 09/16/1997 Hallucinations Tetanus Toxoid Other (Please comment) 06/15/2011 Passed out documented as of this encounter (statuses as of 10/18/2019) Medications Medication Sig Dispensed Refills Start Date [...] weeks. 60 g 1 02/13/2019 Active Additional information Patient not taking. Reported on 10/18/2019 3:20 [...] or chew 90 Cap 5 08/09/2019 Active traMADol (ULTRAM) 50 MG TabletIndications:Ch ronic pain syndrome Take 1 Tab by mouth every 8 hours as needed for Pain, Severe. 90 Tab 0 08/09/2019 Active Vitamin D, Ergocalciferol, 1.25 MG (78175 UT) CapsuleIndications:V itamin D deficiency Take 1 [...] daily 30 Tab 0 09/10/2019 Active Additional information Patient not taking. Reported on 10/18/2019 3:20 PM clobetasol propionate (TEMOVATE) 0.05 % creamIndications:Vas culitis (HCC) apply to rash on the legs and arm twice daily x 1-2 weeks. 30 g 5 09/10/2019 Active Additional information Patient not taking. 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, NYHA class 1 and CKD stage 3 05/14/2019 Other atherosclerosis of [place] arteries of extremities, left leg 02/26/2019 [...] 10/14/2014 Overview: ICD-10 update of inactive term [place] filter in place 08/19/2014 History of pulmonary [...] as of this encounter (statuses as of 10/18/2019) Resolved Problems Problem Noted Date Resolved Date [...] as of this encounter (statuses as of 10/18/2019) Immunizations Name Administration Dates Next Due Pneumococcal [...] Sign Reading Time Taken Comments Blood Pressure 106/66 10/18/2019 3:18 PM EST Pulse 92 10/18/2019 3:18 PM EST Temperature 36.8 C (98.3 F) 10/18/2019 3:18 PM ES T Respiratory Rate 18 10/18/2019 3:18 PM EST Oxygen Saturation 96% 10/18/2019 3:18 PM EST Inhaled Oxygen Concentration - - Weight - - Height - - Body Mass Index - - documented in this encounter Progress Notes * Malissa Castro RN - 10/18/2019 3:20 PM EST [facility] Fire Lieutenant Monthly Visit Date: 10/18/2019 Time: 3:20 PM Name: Stephanie Camp : 1955 Current Concerns/Driving diagnosis: HF, DMII DM II - patient with insulin pump, reports that her diabetic meds are managed by [facility]. Has an appointment with her next week. Usually blood sugar is in high 100's or low 200's. HF - Patient feels euvolemic today, no edema in feet or ankles, states she can tell if she has abdominal distention when she puts her seat belt on in her car and does not feel bloated today. She takes furosemide 40 mg daily. Has not been weighing herself. Does state that she adheres to low sodium diet and fluid restriction. Vasculitis - has completed treatment prescribed by batch records clerk. She feels that her legs have returned to baseline. No current issues. ELISSA - uses CPAP and nocturnal O2, feels that she is resting well with this. Denies need for O2 during the day. Is irina to walk to her car in the parking lot of her apartment building without stopping to rest. Fibromyalgia - needs refill on her tramadol, states she was notified that it was denied, but last filled in July, prescribed 90 tablets every 8 hours as needed. Will notify PCP. [facility]. Left knee pain - Seeing [facility] orth[facility] for injections. If she fails injections, she feels she will need a left knee replacement. Right knee already done. Physical Exam: BP 106/66 | Pulse 92 | Temp (Src) 98.3 (Tympanic) | Resp 18 | SaO2 96% | LMP 03/11/2003 Pain 0 Physical Exam Constitutional: General: She is not in acute distress. Appearance: She is obese. She is not ill-appearing. HENT: Head: Normocephalic. Right Ear: External ear normal. Left Ear: External ear normal. Neck: Musculoskeletal: Normal range of motion. Cardiovascular: Rate and Rhythm: Normal rate and regular rhythm. Pulmonary: Effort: Pulmonary effort is normal. No respiratory distress. Breath sounds: Rales (few inspiratory crackles at bases) present. No wheezing or rhonchi. Abdominal: General: Bowel sounds are normal. There is no distension. Tenderness: There is no tenderness. There is no guarding. Comments: Large pannus Musculoskeletal: General: No swelling or tenderness. Right lower leg: No edema. Left lower leg: No edema. Skin: General: Skin is warm and dry. Neurological: Mental Status: She is alert and oriented to person, place, and time. Mental status is at baseline. Psychiatric: Mood and Affect: Mood normal. Behavior: Behavior normal. Thought Content: Thought content normal. Judgment: Judgment normal. Problems/Symptoms: Review of Systems Constitutional: Negative. HENT: Positive for congestion (uses netti pot occasionally ). Negative for sinus pressure, sinus pain and sore throat. Eyes: Negative. Respiratory: Positive for shortness of breath (with extended walking, can walk from apartment to parking lot without stopping to rest at baseline). Negative for cough and wheezing. Genitourinary: Negative. Negative for dysuria and hematuria. Musculoskeletal: Positive for arthralgias (left knee), gait problem and myalgias. Skin: Negative. Psychiatric/Behavioral: Positive for sleep disturbance (reports sometimes not being able to sleep for days ). Negative for agitation, behavioral problems, decreased concentration and hallucinations. The patient is nervous/anxious (intermittently, reports occasional panic attacks). Medication Reconciliation: (See medication list) Does patient take medications as ordered: Yes Patient Well Being: PHQ2/9: @[id number]@ Patient driving, has no children, lives in first floor of apartment building. Independent for her ADL's and IADL's, uses pill minder and has no difficulty filling. Has brother that lives locally, sister, too, but in [place] for the winter. Has the patient been feeling optimistic about the future?: Yes (06/20/2019 12:00 PM) Advanced Care Planning: No documentation, not discussed at visit today. Patient's Goals of Care: 1. Wants to remain in her apartment and independent 2. Wants to stay out of the hospital 3. Wants to have left knee replaced Reinforcement/Education: Reviewed HF symptom monitoring: -Weigh self [...] medication regimen. Timing., Dosing. and Purspose. Treatment/Plan: Needs refill on tramadol, encounter sent to PCP Patient advised to weigh daily in the morning after urinating, record daily and report weight gain of > 3 pounds overnight of 5 lbs in 5 days. Low sodium diet Treatment(s) Given: Evaluation Patient's 'Red Flags': 1. Increased weight gain > 3 pounds overnight or 5 pounds in 5 days 2. Increased shortness of breath 3. Increased edema Patient Needs to Remember: Provided toll free number for [facility], , and encouraged to call this number 18/04 for any symptom management needs. Educated on the capability of [facility] to treat many symptoms in the home, especially if reported and treated as soon as they occur. Referrals Needed: None at this time Follow Up: Patient encouraged to call the intake phone number for all urgent but not emergent issues. Is the patient new to [facility] within the last 30 days? No, Assess appropriateness for upcoming telehealth visits. Cancel telehealth visits & schedule home visit with care velvet steamer(s)as indicated. Plan of care communicated to Provider: Yes Scheduled to follow up with patient in 4 weeks with phone call wellness check. . Malissa Castro RN 10/18/2019 3:20 PM documented in this encounter Plan of Treatment Upcoming Encounters Date Type Specialty Care Team Description 10/23/2019 Imaging Radiology 10/29/2019 Office Visit Pharmacy [facility] [place] [address] [place] [address] 11/07/2019 Office Visit Family Medicine Kevin Whiteside DO [address] [place] [address] [phone] 11/22/2019 Office Visit Pulmonary Celsa Tafoya CRNP [address] [place] [address] [phone] 11/23/2019 Scheduled Telephone [facility] [place], [place], [facility] [address] [place] [address] [phone] 02/26/2020 Office Visit Cardiology Rey Woodall MD [address] [place] [address] [phone] Health Maintenance Due Date Last Done Comments Zoster Vaccines (2 of 3) 02/05/2016 12/11/2015 CKD PHOS USE SMARTSET 91304 12/29/2018 04/0 01/2018, 08/26/2009, 08/25/2009, Additional history exists DIABETES-FOOT EXAM 01/02/2020 01/01/2019, 0 12/29/2017, 10/21/2016, Additional history exists DIABETES-HGBA1C EVERY 6 MONTHS 02/07/2020 08/09/2019, 03/14/2019, 09/27/2018, Additional history exists CKD GFR USE SMARTSET 12276 03/11/202009/10, 08/09/2019, 07/20/2019, Additional history exists Yearly B-12 03/14/2020 03/14/2019, 05/16/2018 DIABETES-EYE EXAM 04/05/2020 04/05/2019, (Done elsewhere), 12/18/2009, Additional history exists DIABETES-URINE MICROALBUMIN EVERY 12 MONTHS 05/24/2020 05/24/2019, 02/26/2019, 12/23/2018, Additional history exists BREAST CANCER SCREENING DISCUSSION YEARLY AGES 40-75 07/10/2020 07/10/2019, 06/23/2018, 05/09/2015, Additional history exists CKD HGB USE SMARTSET 34163 09/10/202009/10, 07/20/2019, 02/26/2019, Additional history exists PAP [...] on File Type Date Recorded Patient Deputy Grand Jury Expl 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
--- OUTSIDE RECORDS SUMMARY | 2023-06-01 05:36 | External Medical Summary | Summary of Care ---
Author Name Unknown Organization [place] [address] Care Team Providers Care Lining Ironer Name Role Phone Migue Whiteside DO Primary Care Provider Reason for Visit * Reason Comments Medication Refill Encounter Details Date Type Department Care Team Description 10/12/2019 Refill Family Practice [facility] [address] [place] [address] Migue Whiteside DO [address] [facility] [place] [address] [phone] Type 2 diabetes mellitus with hemoglobin A1c goal of 7.0%-8.0% ([facility]) Allergies Active Allergy Reactions Severity Noted Date Comments Pollen 05/18/2019 Heparin 09/04/2009 Heparin Induced Thrombocytopenia Empagliflozin Other (Please comment) Medium 05/17/2018 3 yeast infections in 6 weeks after starting Morphine And Related 09/16/1997 Hallucinations Tetanus Toxoid Other (Please comment) 06/15/2011 Passed out documented as of this encounter (statuses as of 10/15/2019) Medications Medication Sig Dispensed Refills Start Date [...] 7.0%-8.0% ([facility]) Inject 0.5 mg under the skin once a week. 3 Pre-filled Pen Syringe Dosing Unit 12 08/09/2019 Active DULoxetine (CYMBALTA) 30 MG CPEP Take 1 Cap by mouth daily. Take along with the 60mg dose for totally of 90mg daily. Do not cut, crush or chew 90 Cap 5 08/09/2019 Active traMADol (ULTRAM) 50 MG TabletIndications:C hronic pain syndrome Take 1 Tab by mouth every 8 hours as needed for Pain, Severe. 90 Tab 0 08/09/2019 Active Vitamin D, Ergocalciferol, 1.25 MG (67855 UT) CapsuleIndications: Vitamin D deficiency Take 1 [...] twice daily 30 Tab 0 09/10/2019 Active clobetasol propionate (TEMOVATE) 0.05 % creamIndications:Va [...] a day. 270 Cap 5 10/15/2019 Active gabapentin (NEURONTIN) 300 MG CapsuleIndications: Type 2 diabetes mellitus with hemoglobin A1c goal of 7.0%-8.0% (HCC) Take 1 Cap by mouth 3 times a day. 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 Authorizing Provider: MIGUE WHITESIDE * Telephone Encounter - Sean Kendall [facility] - 10/12/2019 1:51 PM EST Pending Prescriptions: Disp Refills gabapentin (NEURONTIN) 300 MG Capsule 270 Cap5 Sig: Take 1 Cap by mouth 3 times a day. Last Office Visit: 09/05/2019 Next Office Visit: 11/07/2019 Scheduled Provider(s): Migue Whiteside DO If no future appointments scheduled, and last appointment is greater than a year ago, please schedule patient for a follow-up appointment Last date the medication was ordered: 01/01/2019 Pharmacy: [id number] Is this request for a controlled [...] Encounters Date Type Specialty Care Team Description 10/18/2019 Home Visit [facility] Malissa Castro RN [address] [place] [address] [address] [phone] 10/23/2019 Imaging Radiology 10/29/2019 Office Visit Pharmacy [facility] [address] [address] [address] [address] 11/07/2019 Office Visit Family Medicine Migue Whiteside DO [address] [address] [phone] 11/22/2019 Office Visit Pulmonary Celsa Tafoya CRNP [address] [address] [phone] 02/26/2020 Office Visit Cardiology Rey Woodall MD [address] [address] [phone] Health Maintenance Due Date Last Done Comments Zoster Vaccines (2 of 3) 02/05/2016 12/11/2015 CKD PHOS USE SMARTSET 32010 12/29/2018 04/0 01/2018, 08/26/2009, 08/25/2009, Additional history exists DIABETES-FOOT EXAM 01/02/2020 01/01/2019, 0 12/29/2017, 10/21/2016, Additional history exists DIABETES-HGBA1C EVERY 6 MONTHS 02/07/2020 08/09/2019, 03/14/2019, 09/27/2018, Additional history exists CKD GFR USE SMARTSET 90534 03/11/202009/10, 08/09/2019, 07/20/2019, Additional history exists Yearly B-12 03/14/2020 03/14/2019, 05/16/2018 DIABETES-EYE EXAM 04/05/2020 04/05/2019, (Done elsewhere), 12/18/2009, Additional history exists DIABETES-URINE MICROALBUMIN EVERY 12 MONTHS 05/24/2020 05/24/2019, 02/26/2019, 12/23/2018, Additional history exists BREAST CANCER SCREENING DISCUSSION YEARLY AGES 40-75 07/10/2020 07/10/2019, 06/23/2018, 05/09/2015, Additional history exists CKD HGB USE SMARTSET 85677 09/10/202009/10, 07/20/2019, 02/26/2019, Additional history exists PAP SMEAR-EVERY 3 YRS,AGES 21-65 10/03/2022 10/03/2019, 05/11/2013, 03/01/2008, Additional history exists Pneumococcal Vaccine: Pediatrics (0 to 5 Years) and At-Risk Patients (6 to 64 Years) Completed 08/22/2009, 06/15/2006 Influenza Vaccine (FLU shot) Completed , 06/12/2018, 06/12/2018, Additional history exists MENINGOCOCCAL (MENACTRA) Aged Out No longer eligible based on patient's age to complete this topic documented as of this encounter Implants Not on filedocumented as of this encounter Visit Diagnoses Diagnosis Type 2 diabetes mellitus with hemoglobin A1c goal of 7.0%-8.0% (HCC) documented in this encounter Advance Directives Documents on File Type Date Recorded Patient Bus And Rail Operator Expl 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
--- OUTSIDE RECORDS SUMMARY | 2023-06-01 05:36 | External Medical Summary | Summary of Care ---
Author Name Unknown Organization [place] [address] Care Team Providers Care Legal Writing Professor Name Role Phone Kevin Whiteside DO Primary Care Provider Reason for Visit * Reason Comments Medication Pre-auth Encounter Details Date Type Department Care Team Description 10/30/2019 Telephone Family Practice [facility] [address] [place] [address] Kevin Whiteside DO [address] [facility] [place] [address] [phone] Medication Pre-auth Allergies Active Allergy Reactions Severity [...] 08/09/2019 Active Vitamin D, Ergocalciferol, 1.25 MG (43322 UT) CapsuleIndications:V itamin D deficiency Take 1 [...] CKD stage 3 05/14/2019 Other atherosclerosis of [place] arteries of extremities, left leg 02/26/2019 Lumbar [...] Telephone Encounter - Miranda Quick OSA - 11/01/2019 8:01 AM EST Received fax that appeal is approved effective 10/31/19 through 10/31/20. Faxed copy of approval to pharmacy. * Telephone Encounter - Miranda Quick OSA - 10/31/2019 1:12 PM EST Faxed signed letter along with office notes to [facility] to request an appeal to denial. * Telephone Encounter - Apple Kaminski MD - 10/30/2019 10:23 PM EST Letter written please send. * Telephone Encounter - Miranda Quick OSA - 10/30/2019 4:19 PM EST Please write a medical necessity letter and I will fax it to [facility]. * Telephone Encounter - Apple Kaminski MD - 10/30/2019 4:13 PM EST Please appeal. The only other option for her would be prednisone which is not a good option due to her diabetes. * Telephone Encounter - Miranda Quick OSA - 10/30/2019 2:07 PM EST Received fax from [facility] that colchicine is denied. Due to not seeing medical documentation of use fora FDA approved indication. * Telephone Encounter - Miranda Quick OSA - 10/30/2019 10:22 AM EST Submitted prior auth via [employer] for colchicine. Will await response. * Telephone Encounter - Mindy Ibarra, sign shop supervisor - 10/30/2019 9:22 AM EST [facility] calling to inform doctor that the pt's insurance will not pay for this medication without a completed prior authorization. . Please complete with the following information: Patient name: Stephanie Camp ID number: LEXIE HELMS [id number] BIN number: [id number] PCN number: [id number] Group number: [id number] Subscriber name: Stephanie Camp Medication: colchicine 0.6 MG Tablet Reason for PA: Needs auth Pharmacy: [facility] [phone] Rx plan and phone number: Formulary alternatives: NA List of medications pt has tried and failed: NA Thanks, Mindy Ibarra Sound Mixer Pharmacy Refill Call Center 10/30/2019,9:22 AM documented in this encounter Plan of Treatment Upcoming Encounters Date Type Specialty Care Team Description 11/01/2019 Office Visit Orthopedics Zonia Cheema DO [address] [address] [phone] 11/07/2019 Office Visit Family Medicine Kevin Whiteside DO [address] [address] [phone] 11/22/2019 Office Visit Pulmonary Celsa Tafoya CRNP [address] [address] [phone] 11/23/2019 [facility]uled [facility] Senior Graduate Advisor [address] [address] [phone] 01/02/2020 Office Visit Pharmacy [facility] Ordaz [address] [address] [address] [address] 02/04/2020 Office Visit Dermatology Apple Kaminski MD [address] [place] [address], [place] [address] [phone] 02/26/2020 Office Visit Cardiology Rey Woodall MD [address] [place] [address] [phone] Health Maintenance Due Date Last Done Comments Zoster Vaccines (2 of 3) 02/05/2016 12/11/2015 CKD PHOS USE SMARTSET 25106 12/29/2018 04/0 01/2018, 08/26/2009, 08/25/2009, Additional history exists DIABETES-FOOT EXAM 01/02/2020 01/01/2019, 0 12/29/2017, 10/21/2016, Additional history exists DIABETES-HGBA1C EVERY 6 MONTHS 02/07/2020 08/09/2019, 03/14/2019, 09/27/2018, Additional history exists CKD GFR USE SMARTSET 84416 03/11/202009/10, 08/09/2019, 07/20/2019, Additional history exists Yearly B-12 03/14/2020 03/14/2019, 05/16/2018 DIABETES-EYE EXAM 04/05/2020 04/05/2019, (Done elsewhere), 12/18/2009, Additional history exists DIABETES-URINE MICROALBUMIN EVERY 12 MONTHS 05/24/2020 05/24/2019, 02/26/2019, 12/23/2018, Additional history exists BREAST CANCER SCREENING DISCUSSION YEARLY AGES 40-75 07/10/2020 07/10/2019, 06/23/2018, 05/09/2015, Additional history exists CKD HGB USE SMARTSET 21161 09/10/202009/10, 07/20/2019, 02/26/2019, Additional history exists PAP [...] Documents on File Type Date Recorded Patient Blister Rust Eradicator Expl 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
--- OUTSIDE RECORDS SUMMARY | 2023-06-01 05:36 | External Medical Summary | Summary of Care ---
Author Name Unknown Organization [place] [address] Care Team Providers Care Petrography Teacher Name Role Phone Kevin Whiteside DO Primary Care Provider Reason for Visit * Reason Comments Medication Pre-auth Encounter Details Date Type Department Care Team Description 10/30/2019 Telephone Family Practice [facility] [address] [place] [address] Kevin Whiteside DO [address] [facility] [place] [address] [phone] Medication Pre-auth Allergies Active Allergy Reactions Severity [...] 08/09/2019 Active Vitamin D, Ergocalciferol, 1.25 MG (55750 UT) CapsuleIndications:V itamin D deficiency Take 1 [...] CKD stage 3 05/14/2019 Other atherosclerosis of [place] arteries of extremities, left leg 02/26/2019 [...] 06/12/2018 08/26/2018 ESLIE (acute kidney injury) 06/12/20182017 Kidney disease, chronic, [...] signed letter along with office notes to [facility] to request an appeal to denial. * Telephone Encounter - Apple Kaminski MD - 10/30/2019 10:23 PM EST Letter written please send. * Telephone Encounter - Miranda Quick OSA - 10/30/2019 4:19 PM EST Please write a medical necessity letter and I will fax it to [facility]. * Telephone Encounter - Apple Kaminski MD - 10/30/2019 4:13 PM EST Please appeal. The only other option for her would be prednisone which is not a good option due to her diabetes. * Telephone Encounter - Miranda Quick OSA - 10/30/2019 2:07 PM EST Received fax from [facility] that colchicine is denied. Due to not seeing medical documentation of use fora FDA approved indication. * Telephone Encounter - Miranda Quick OSA - 10/30/2019 10:22 AM EST Submitted prior auth via [employer] for colchicine. Will await response. * Telephone Encounter - Mindy Ibarra, tractor crane engineer - 10/30/2019 9:22 AM EST [facility] calling to inform doctor that the pt's insurance will not pay for this medication without a completed prior authorization. . Please complete with the following information: Patient name: Stephanie Camp ID number: LEXIE HELMS [id number] BIN number: [id number] PCN number: [id number] Group number: [id number] Subscriber name: Stephanie Camp Medication: colchicine 0.6 MG Tablet Reason for PA: Needs auth Pharmacy: [facility] [phone] Rx plan and phone number: Formulary alternatives: NA List of medications pt has tried and failed: NA Thanks, Mindy Ibarra Supervisor Component Assembler Pharmacy Refill Call Center 10/30/2019,9:22 AM documented in this encounter Plan of Treatment Upcoming Encounters Date Type Specialty Care Team Description 11/01/2019 Office Visit Orthopedics Zonia Cheema DO [address] [address] [phone] 11/07/2019 Office Visit Family Medicine Kevin Whiteside DO [address] [address] [phone] 11/22/2019 Office Visit Pulmonary Celsa Tafoya CRNP [address] [address] [phone] 11/23/2019 [facility]uled [facility] Hydroelectric Machinery Mechanic Helper [address] [address] [phone] 01/02/2020 Office Visit Pharmacy Danuta Ordaz [address] [address] [address] [address] 02/04/2020 Office Visit Dermatology Apple Kaminski MD [address] [place] [address], [place] [address] [phone] 02/26/2020 Office Visit Cardiology Rey Woodall MD [address] [place] [address] [phone] Health Maintenance Due Date Last Done Comments Zoster Vaccines (2 of 3) 02/05/2016 12/11/2015 CKD PHOS USE SMARTSET 94245 12/29/2018 04/0 01/2018, 08/26/2009, 08/25/2009, Additional history exists DIABETES-FOOT EXAM 01/02/2020 01/01/2019, 0 12/29/2017, 10/21/2016, Additional history exists DIABETES-HGBA1C EVERY 6 MONTHS 02/07/2020 08/09/2019, 03/14/2019, 09/27/2018, Additional history exists CKD GFR USE SMARTSET 99662 03/11/202009/10, 08/09/2019, 07/20/2019, Additional history exists Yearly B-12 03/14/2020 03/14/2019, 05/16/2018 DIABETES-EYE EXAM 04/05/2020 04/05/2019, (Done elsewhere), 12/18/2009, Additional history exists DIABETES-URINE MICROALBUMIN EVERY 12 MONTHS 05/24/2020 05/24/2019, 02/26/2019, 12/23/2018, Additional history exists BREAST CANCER SCREENING DISCUSSION YEARLY AGES 40-75 07/10/2020 07/10/2019, 06/23/2018, 05/09/2015, Additional history exists CKD HGB USE SMARTSET 09171 09/10/202009/10, 07/20/2019, 02/26/2019, Additional history exists PAP [...] on File Type Date Recorded Patient Talent Acquisition Specialist Expl 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
--- OUTSIDE RECORDS SUMMARY | 2023-06-01 05:36 | External Medical Summary | Summary of Care ---
Author Name Unknown Organization [place] [address] Care Team Providers Care Detective Narcotics And Vice Name Role Phone Stevo Kevin Ocampomelinda Primary Care Provider Reason for Visit * Reason Comments Dosage Adjustment In Person (Anticoag Cl inic) Diabetes Follow-Up Encounter Details Date Type Department Care Team Description 10/29/2019 Office Visit Pharmacy, [facility] [address] [facility] [place] [address] [facility] [address] [facility] [place] [address] Uncontrolled type 2 diabetes mellitus with stage 3 chronic kidney disease, with long-term current use of insulin ([facility])* Allergies Active Allergy Reactions Severity Noted Date Comments Pollen 05/18/2019 Heparin 09/04/2009 Heparin Induced Thrombocytopenia Empagliflozin Other (Please comment) Medium 05/17/2018 3 yeast infections in 6 weeks after starting Morphine And Related 09/16/1997 Hallucinations Tetanus Toxoid Other (Please comment) 06/15/2011 Passed out documented as of this encounter (statuses as of 10/29/2019) Medications Medication Sig Dispensed Refills Start Date [...] 08/09/2019 Active Vitamin D, Ergocalciferol, 1.25 MG (80907 UT) CapsuleIndications:V itamin D deficiency Take 1 [...] 09/02/2019 Active colchicine 0.6 MG TabletIndications:Va sculitis ([facility]) Take 1/2 tab twice daily 30 Tab [...] at bedtime. 90 Cap 2 10/25/2019 Active Hospital, Clinic, or Other Facility Administered Medication Ordered Dose Route Frequency Start Date End Date Status levalbuterol (XOPENEX) inhalation solution 0.63 mgIndications:Wheezing 0.63 mg NEBULIZER Q4H PRN 09/12/2019 Ac tive levalbuterol (XOPENEX) inhalation solution 1.25 mgIndications:AVENDAÑO (dyspnea on exertion),Wheezing 1.25 mg NEBULIZER Q4H PRN 09/13/2019 Active documented as of this encounter (statuses as of 10/29/2019) Active Problems Problem Noted Date 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, NYHA class 1 and CKD stage 3 05/14/2019 Other atherosclerosis of [place] arteries of extremities, left leg 02/26/2019 Lumbar [...] as of this encounter (statuses as of 10/29/2019) Resolved Problems Problem Noted Date Resolved Date [...] as of this encounter (statuses as of 10/29/2019) Immunizations Name Administration Dates Next Due Pneumococcal [...] this encounter Progress Notes * Rose Barton, [facility] - 10/29/2019 11:08 AM EST Medication Therapy Disease Management CSII Follow-up Interval History: Stephanie Camp is an 64 year old year old female returning to the Medication Therapy Disease Management Clinic for a diabetes insulin pump follow-up visit. Blood glucose control since last visit: improved Medication intolerance: no Medication compliance: no Medication contraindications: no Complicating factors/cost barriers: no Hospitalization or ED Utilization since last visit: no Hypoglycemia requiring assistance since last visit: no Current Diabetes Medications: Ozempic 0.50 mg weekly Medtronic 630G Insulin Pump (Serial Number: [id number]) Infusion Set: SureT Insulin: Novolog INC: Basal Rate: 4.75 units/hour Bolus: 22 units with breakfast, 22 units with lunch and 22 units with supper and 8 units with bedtime snack Bolus wizard: on and using ICR: 4 ISF: 10 Blood Glucose Goals: 120-150 Active Insulin Time: 4 hours Carelink Blood Glucose Review: Hypoglycemia Assessment: 1. Do you know what the symptoms of hypoglycemia are? No 2. How often can you tell by your symptoms if your blood sugar is low? Often 3. In a typical week, how many times will your blood sugar go below 70 mg/dL? Never 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 Nocturnal hypoxemia G47.34 ELISSA (obstructive sleep apnea) G47.33 Venous insufficiency I87.2 HTN, goal below 130/80 I10 History of pulmonary embolus (PE) Z86.711 Statin intolerance Z78.[address] [place] [address] Z95.828 Type 2 diabetes mellitus with hemoglobin A1c goal of 7.0%-8.0% (HCC) E11.9 Fibromyalgia M79.7 Abnormality of gait R26.9 Restless legs syndrome G25.81 Gastroesophageal reflux disease with esophagitis K21.0 Uncontrolled type 2 diabetes mellitus with stage 3 chronic kidney disease, with long-term current use of insulin ([facility]) E11.22, E11.65, N18.3, Z79.4 Body mass index (BMI) of 50.0 to 59.9 in adult ([facility]) Z68.43 Controlled substance agreement signed Z79.899 Chronic diastolic congestive heart failure ([facility]) I50.32 Thoracic back pain M54.6 Mild episode of recurrent major depressive disorder ([facility]) F33.0 Lumbar radiculopathy M54.16 Other atherosclerosis of [place] arteries of extremities, left leg ([facility]) I70.292 Benign hypertensive heart and kidney disease with diastolic CHF, NYHA class 1 and CKD stage 3 ([facility]) I13.0, I50.30, N18.3 Review of patient's allergies indicates: Allergen Reactions [...] and arm twice daily x 1-2 weeks. (Patient not taking: Reported on 10/18/2019) 30 g 5 colchicine 0.6 MG Tablet Take 1/2 tab twice daily (Patient not taking: Reported on 10/18/2019) 30 Tab 0 levothyroxine (LEVOXYL) 200 MCG Tablet TAKE ONE TABLET BY MOUTH EVERY DAY AT LEAST 30 MINUTES BEFORE BREAKFAST OR OTHER MEDS 90 Tab 4 levothyroxine (LEVOXYL) 25 MCG Tablet TAKE ONE TABLET BY MOUTH IN THE MORNING AT LEAST 30 MINUTES PRIOR TO BREAKFAST OR OTHER MEDS 90 Tab 1 Vitamin D, Ergocalciferol, 1.25 MG (71142 UT) Capsule Take 1 Cap by mouth [...] Toaffected area for up to two weeks. (Patient not taking: Reported on 10/18/2019) 60 g 1 metoprolol tartrate (LOPRESSOR) 25 [...] 20 MG PO CPDR one tablet daily Objective: The ASCVD Risk score (Freddyadrianna JOHNS Jr., et al., 2013) failed to calculate for the following reasons: The patient has a prior CT or stroke diagnosis Estimated body mass index is 56 kg/m as calculated from the following: Height as of 10/03/19: 1.635 m (5' 4.37"). Weight as of 10/03/19: 149.7 kg (330 lb). BP Readings from Last 3 Encounters: 10/18/19 106/66 10/03/19 120/74 09/14/19 130/80 No POC orders found HEMOGLOBIN, A1C(%) Nessa Dt/Tm Resulted Value Status 08/09/19 11:02A 08/09/19 9.4* FINAL 03/14/19 1:54P 03/14/19 9.4* FINAL 09/27/18 1:48P 09/27/18 9.5* FINAL MICROALBUMIN RATIO(mg/g creat) Nessa Dt/Tm Resulted Value Status 05/24/19 2:59P 05/24/19 <16 FINAL 05/01/18 9:13A 05/01/18 <18 FINAL 03/03/17 12:37P 03/03/17 <15 FINAL LDL (CALCULATED)(mg/dL) Nessa Dt/Tm Resulted Value Status 03/14/19 1:54P 03/14/19 FINAL Value: UNINTERPRETABLE RESULT BASIC METAB PANEL, BMP Nessa Dt/Tm Resulted Value Status BUN (mg/dL) 09/10/19 7:48A 09/10/19 34* F CREATININE (mg/dL) 09/10/19 7:48A 09/10/19 2.0* F E GLOM FILT RATE ( ) 09/10/19 7:48A 09/10/19 26.0* F SODIUM (mmol/L) 09/10/19 7:48A 09/10/19 133* F POTASSIUM (mmol/L) 09/10/19 7:48A 09/10/19 4.9 F CHLORIDE (mmol/L) 09/10/19 7:48A 09/10/19 94* F CO2 (mmol/L) 09/10/19 7:48A 09/10/19 25 F ANION GAP (mmol/L) 09/10/19 7:48A 09/10/19 14 F GLUCOSE (mg/dL) 09/10/19 7:48A 09/10/19 265* F CALCIUM (mg/dL) 09/10/19 7:48A 09/10/19 9.4 F ALT(U/L) Nsesa Dt/Tm Resulted Value Status 07/20/19 10:42A 07/20/19 18 FINAL Assessment & Plan: Glycemic control is stable but not at goal Patient agreeable to adjust medications as noted below. Basal settings continued as glucose is stable overnight and between meals. ICR/fixed dose continued as glucose is stable postprandially. ISF strengthened as glucose is not correcting to goal range. Patient to SMBG at least 4 times daily, before each meal and at bedtime. Patient aware to contact clinic if any hypoglycemia before next visit. Reviewed rule of 15s. Reviewed appropriate management of hyperglycemia as noted in pump start documentation. Diabetes Medications: Ozempic 0.50 mg weekly Medtronic 630G Insulin Pump (Serial Number: [id number]) Infusion Set: SureT Insulin: Novolog INC: Basal Rate: 4.75 units/hour Bolus: 22 units with breakfast, 22 units with lunch and 22 units with supper and 8 units with bedtime snack Bolus wizard: on and using ICR: 4 ISF: 8 Blood Glucose Goals: 120-150 Active Insulin Time: 4 hours Diabetes Health Maintenance: up-to-date Return to Clinic: 8 week(s) Next Office Visit: 01/02/2020 Scheduled Provider(s): [facility] Moe Barton RPh Clinical Pharmacist Medication Therapy Disease Management 10/29/2019, 11:08 AM documented in this encounter Plan of Treatment Upcoming Encounters Date Type Specialty Care Team Description 11/01/2019 Office Visit Orthopedics Zonia Cheema DO [address] [place] [address] [phone] 11/07/2019 Office Visit Family Medicine Kevin Whiteside DO [address] [place] [address] [phone] 11/22/2019 Office Visit Pulmonary Celsa Tafoya CRNP [address] [place] [address] [phone] 11/23/2019 [facility] Staff Physician [address] [place] [address] [phone] 01/02/2020 Office Visit Pharmacy [facility] Moe Bobo [address] [place] [address] 02/26/2020 Office Visit Cardiology Rey Woodall MD [address] [place] [address] [phone] Health Maintenance Due Date Last Done Comments Zoster Vaccines (2 of 3) 02/05/2016 12/11/2015 CKD PHOS USE SMARTSET 20827 12/29/2018 04/0 01/2018, 08/26/2009, 08/25/2009, Additional history exists DIABETES-FOOT EXAM 01/02/2020 01/01/2019, 0 12/29/2017, 10/21/2016, Additional history exists DIABETES-HGBA1C EVERY 6 MONTHS 02/07/2020 08/09/2019, 03/14/2019, 09/27/2018, Additional history exists CKD GFR USE SMARTSET 99074 03/11/202009/10, 08/09/2019, 07/20/2019, Additional history exists Yearly B-12 03/14/2020 03/14/2019, 05/16/2018 DIABETES-EYE EXAM 04/05/2020 04/05/2019, (Done elsewhere), 12/18/2009, Additional history exists DIABETES-URINE MICROALBUMIN EVERY 12 MONTHS 05/24/2020 05/24/2019, 02/26/2019, 12/23/2018, Additional history exists BREAST CANCER SCREENING DISCUSSION YEARLY AGES 40-75 07/10/2020 07/10/2019, 06/23/2018, 05/09/2015, Additional history exists CKD HGB USE SMARTSET 04974 09/10/202009/10, 07/20/2019, 02/26/2019, Additional history exists PAP [...] Documents on File Type Date Recorded Patient Clinching Machine Operator Expl anation Advanced Directive 08/22/2009 [...]
--- OUTSIDE RECORDS SUMMARY | 2023-06-01 05:36 | External Medical Summary | Summary of Care ---
Author Name Unknown Organization [place] [address] Care Team Providers Care Mail Processing Machine Operator Name Role Phone Stevo Migue Ocampomelinda Primary Care Provider Reason for Visit * Reason Comments Follow Up Patient here for fol low-up for vasculitis of the lower legs she says has recurred. She had finished a course of colchicine. She is not currently treating with any topicals, too sticky. Encounter Details Date Type Department Care Team Description 10/29/2019 Office Visit Dermatology [facility] [address] [place] [address] Apple Kaminski MD [address] [place] [address] Leukocytoclastic vasculitis (HCC)* Allergies Active Allergy Reactions Severity Noted [...] 08/09/2019 Active Vitamin D, Ergocalciferol, 1.25 MG (89999 UT) CapsuleIndications: Vitamin D deficiency Take 1 [...] tab daily 45 Tab 0 10/29/2019 Active colchicine 0.6 MG TabletIndications:V asculitis ([facility]) Take 1/2 tab twice daily 30 Tab 0 09/10/2019 10/29/19 20 Discontinu ed(Refill) Hospital, Clinic, or Other [...] CKD stage 3 05/14/2019 Other atherosclerosis of [place] arteries of extremities, left leg 02/26/2019 Lumbar [...] Progress Notes * Apple Kaminski MD - 10/29/2019 3:15 PM EST SUBJECTIVE: History of Present Illness: Stephanie Camp is a 64 year old female seen today for follow up of leukocytoclastic vasculitis. Last Office Visit: 09/27/2019. Last attempted treatments include clobetasol cream, colchicine 0.3mg daily and skin initially cleared but recently started to recur on the lower legs and feet. Pt was off colchicine when started to recur. Treatment tolerated well, denies any GI upset or diarrhea. Labs: 09/10/19: ASO titer positive-237 Cryoglobulins positive-polyclonal type III Creatitine 2.0 09/10/19: CBC, BEL, RF, and hepatitis panel -negative U/A-WNL SPEP-no paraprotein Biopsy A. Skin, right forearm: Leukocytoclastic vasculitis [...] Tab 1 Vitamin D, Ergocalciferol, 1.25 MG (89560 UT) Capsule Take 1 Cap by mouth [...] 20 MG PO CPDR one tablet daily ALLERG IES: Jardiance [empagliflozin]; Hay fever [pollen]; Heparin; Morphine and related; and Tetanus toxoid PAST MEDICAL HISTORY: Past Medical History: Diagnosis Date ELSIE (acute kidney injury) ([facility]) 06/12/2018 Allergic rhinitis due to other allergen Backache Diverticulosis of colon 01/28/06 DM type 2, not at goal ([facility]) ELLIE (generalized anxiety disorder) 09/13/2009 Goiter [place] filter in place 08/19/2014 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[facility]) 08/22/2009 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[facility]) 06/12/2018 History of pulmonary embolus (PE) 07/16/2014 HTN, goal below 140/90 Impetigo 09/27/2018 Obesity, BMI not known Perforation of intestine ([facility]) 1996 COLON -- 1996 Pneumonia in aspergillosis(484.6) 09/14/2009 Spontaneous pneumothorax 09/14/2009 Statin intolerance 07/16/2014 Type 2 diabetes mellitus with hemoglobin A1c goal of 7.0%-8.0% ([facility]) 10/14/2014 ICD-10 update of inactive term Vaginal karmen 07/13/2018 OBJECTIVE: GEN: Healthy, alert, no distress, appears oriented, pleasant, cooperative and uses a cane. SKIN: Detailed exam of hair, face including lids and lips, neck, abdomen, bilateral upper ext. (arm, hand, fingers) and bilateral lower ext. (leg, foot, toes) completed and are normal except: 1. Palpable purpura on the bilateral lower legs and dorsal feet. ASSESS MENT/PLAN: 1. leukocytoclastic vasculitis-still likely due to recent strep infection. Restart colchicine 0.3mg once daily-adjusted dose due to kidney disease. Will plan to keep pt on colchicine for the next few months to prevent flares. Repeat BMP and U/A to make sure no renal involvement given possibility of HSP. Pt to have labs donenext week at PCP visit. Trying to avoid prednisone due to diabetes Follow-up: 3 months There were no barriers tolearning and no other pain was related to today's visit. The patient and/or person accompanying patient demonstrates understanding of the visit and treatment. Apple Kaminski MD Ref: SELF[[id number]] NO STREET ADDRESS AVAILABLE None (office) None (fax) PCP: MIGUE WHITESIDE [address] [place] [address] [phone] documented in this encounter Nursing Notes * Yvette Wallace, CHUYITA - 10/29/2019 3:21 PM EST Patient identified by name and date of . Do you have any concerns about pain management for today's visit? No Living Will or Advance Directive for Health Care as noted on problem list. [facility] is a way you can talk to your provider online through e-mail. Would you like to sign up? I can activate it for you? ALREADY ACTIVE Chief Complaint Patient presents with Follow Up Patient here for follow-up for vasculitis of the lower legs she says has recurred. She had finisheda course of colchicine. She is not currently treating with any topicals, too sticky. documented in this encounter Plan of Treatment Upcoming Encounters Date Type Specialty Care Team Description 11/01/2019 Office Visit Orthopedics Zonia Cheema, DO [address] [place] [address] [phone] 11/07/2019 Office Visit Family Medicine Migue Whiteside, [address] [place] [address] [phone] 11/22/2019 Office Visit Pulmonary Celsa Tafoya CRNP [address] [place] [address] [phone] 11/23/2019 [facility] [employer]ct Systems Test Engineer [address] [place] [address] [phone] 01/02/2020 Office Visit Pharmacy [facility] Jeramie [address] [address] 02/04/2020 Office Visit Dermatology Apple Kaminski MD [address] [place] [address] [phone] 02/26/2020 Office Visit Cardiology Rey Woodall MD [address] [place] [address] [phone] Scheduled Orders Name Type Priority Associated Diagnoses Orde r Schedule ROUTINE URINALYSIS Lab Routine Leukocytoclastic vasculitis (HCC) Expected: 11/05/2019 (Approximate), Expires: 11/26/2020 BASIC METAB PANEL, BMP Lab Routine Leukocytoclastic vasculitis (HCC) Expected: 11/05/2019 (Approximate), Expires: 11/26/2020 Health Maintenance Due Date Last Done Comments Zoster Vaccines (2 of 3) 02/05/2016 12/11/2015 CKD PHOS USE SMARTSET 70067 12/29/2018 04/0 01/2018, 08/26/2009, 08/25/2009, Additional history exists DIABETES-FOOT EXAM 01/02/2020 01/01/2019, 0 12/29/2017, 10/21/2016, Additional history exists DIABETES-HGBA1C EVERY 6 MONTHS 02/07/2020 08/09/2019, 03/14/2019, 09/27/2018, Additional history exists CKD GFR USE SMARTSET 03713 03/11/202009/10, 08/09/2019, 07/20/2019, Additional history exists Yearly B-12 03/14/2020 03/14/2019, 05/16/2018 DIABETES-EYE EXAM 04/05/2020 04/05/2019, (Done elsewhere), 12/18/2009, Additional history exists DIABETES-URINE MICROALBUMIN EVERY 12 MONTHS 05/24/2020 05/24/2019, 02/26/2019, 12/23/2018, Additional history exists BREAST CANCER SCREENING DISCUSSION YEARLY AGES 40-75 07/10/2020 07/10/2019, 06/23/2018, 05/09/2015, Additional history exists CKD HGB USE SMARTSET 78437 09/10/202009/10, 07/20/2019, 02/26/2019, Additional history exists PAP [...] Documents on File Type Date Recorded Patient Railroad Track Repair Supervisor Expl 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
--- OUTSIDE RECORDS SUMMARY | 2023-06-01 05:36 | External Medical Summary | Summary of Care ---
Author Name Unknown Organization [place] [address] Care Team Providers Care Tonnage Compilation Clerk Name Role Phone Migue Whiteside DO Primary Care Provider Reason for Visit * Reason Comments Medication Refill Encounter Details Date Type Department Care Team Description 10/24/[address] [facility] [address] [place] [address] Migue Whiteside DO [address] [facility] [place] [address] [phone] Fibromyalgia Allergies Active Allergy Reactions Severity Noted [...] ([facility]) Inject 0.5 mg under the skin once a week. 3 Pre-filled Pen Syringe Dosing Unit 12 08/09/2019 Active DULoxetine (CYMBALTA) 30 MG CPEP Take 1 Cap by mouth daily. Take along with the 60mg dose for totally of 90mg daily. Do not cut, crush or chew 90 Cap 5 08/09/2019 Active Vitamin D, Ergocalciferol, 1.25 MG (20378 UT) CapsuleIndications: Vitamin D deficiency Take 1 [...] clobetasol propionate (TEMOVATE) 0.05 % creamIndications:Va sculitis ([facility]) apply to rash on the legs and [...] at bedtime. 90 Cap 2 10/25/2019 Active Nortriptyline HCl (PAMELOR) 50 MG [...] CKD stage 3 05/14/2019 Other atherosclerosis of [place] arteries of extremities, left leg 02/26/2019 Lumbar [...] 10:00 AM EST Signed Prescriptions: Disp Refills Nortriptyline HCl (PAMELOR) 50 MG Capsule 90 Cap 2 Sig: Take 1 Cap by mouth at bedtime. Authorizing Provider: MIGUE WHITESIDE * Telephone Encounter - Cora Ross [facility] - 10/25/2019 7:37 AM EST Pending Prescriptions: Disp Refills Nortriptyline HCl (PAMELOR) 50 MG Capsule 90 Cap 2 Sig: Take 1 Cap by mouth at bedtime. * Telephone Encounter - Cora Ross RP - 10/25/2019 7:35 AM EST Refill pharmacists currently not authorized to approve refills for this class of medication when used for Fibromyalgia per refill protocol. Please approve if appropriate. Thanks, Cora Ross PharmD Clinical Pharmacist Pharmacy Refill Call Center 10/25/2019, 7:36 AM * Telephone Encounter - Tejal Giles CPhT - 10/24/2019 8:29 AM EST Pending Prescriptions: Disp Refills Nortriptyline HCl (PAMELOR) 50 MG Capsule 90 Cap 5 Sig: Take 1 Cap by mouth at bedtime. Last Office Visit: 09/05/2019 Next Office Visit: 11/07/2019 Scheduled Provider(s): Migue Whiteside, DO If no future appointments scheduled, and last appointment is greater than a year ago, please schedule patient for a follow-up appointment Last date the medication was ordered: 08/01/2018 Pharmacy: Is this request for a controlled substance?No [...] Description 10/29/2019 Office Visit Pharmacy Danuta Ordaz [facility] [address] [facility] [place] [address] 10/29/2019 Office Visit Dermatology Apple Kaminski MD [address] [place] [address] [phone] 11/01/2019 Office Visit Orthopedics Zonia Cheema, DO [address] [place] [address] [phone] 11/07/2019 Office Visit Family Medicine Migue Whiteside, DO [address] [place] [address] [phone] 11/22/2019 Office Visit Pulmonary Celsa Tafoya CRNP [address] [facility] [place] [address] [phone] 11/23/2019 Scheduled Telephone [facility] [place] [place], [facility] Machine Turner [address] [facility] [place] [address] [phone] 02/26/2020 Office Visit Cardiology Rey Woodall MD [address] [facility] [place] [address] [phone] Health Maintenance Due Date Last Done Comments Zoster Vaccines (2 of 3) 02/05/2016 12/11/2015 CKD PHOS USE SMARTSET 07202 12/29/2018 04/0 01/2018, 08/26/2009, 08/25/2009, Additional history exists DIABETES-FOOT EXAM 01/02/2020 01/01/2019, 0 12/29/2017, 10/21/2016, Additional history exists DIABETES-HGBA1C EVERY 6 MONTHS 02/07/2020 08/09/2019, 03/14/2019, 09/27/2018, Additional history exists CKD GFR USE SMARTSET 29533 03/11/202009/10, 08/09/2019, 07/20/2019, Additional history exists Yearly B-12 03/14/2020 03/14/2019, 05/16/2018 DIABETES-EYE EXAM 04/05/2020 04/05/2019, (Done elsewhere), 12/18/2009, Additional history exists DIABETES-URINE MICROALBUMIN EVERY 12 MONTHS 05/24/2020 05/24/2019, 02/26/2019, 12/23/2018, Additional history exists BREAST CANCER SCREENING DISCUSSION YEARLY AGES 40-75 07/10/2020 07/10/2019, 06/23/2018, 05/09/2015, Additional history exists CKD HGB USE SMARTSET 12685 09/10/202009/10, 07/20/2019, 02/26/2019, Additional history exists PAP [...] Documents on File Type Date Recorded Patient Gate Supervisor Expl 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
--- OUTSIDE RECORDS SUMMARY | 2023-06-01 05:37 | External Medical Summary | Summary of Care ---
Author Name Unknown Organization [place] [address] Care Team Providers Care Bowling Ball Grader Name Role Phone Kevin Whiteside DO Primary Care Provider Reason for Visit * Reason Comments [facility]: Acute Encounter Details Date Type Department Care Team Description 08/28/2019 Telephone [facility] [address] [place] [address] [facility], Nurse [address] [place] [address] [phone] [facility]: Acute Allergies Active Allergy Reactions Severity Noted Date Comments Pollen 05/18/2019 Heparin 09/04/2009 Heparin Induced Thrombocytopenia Empagliflozin Other (Please comment) Medium 05/17/2018 3 yeast infections in 6 weeks after starting Morphine And Related 09/16/1997 Hallucinations Tetanus Toxoid Other (Please comment) 06/15/2011 Passed out documented as of this encounter (statuses as of 09/18/2019) Medications Medication Sig Dispensed Refills Start Date [...] 400 Box Dosing Unit 3 08/30/2018 Active DULoxetine (CYMBALTA) 60 MG CPEPIndications:Fibr omyalgia,Moderate episode of recurrent major depressive disorder (HCC),Primary osteoarthritis of both knees Take 1 Cap by mouth daily. Do not cut, crush or chew 90 Cap 5 12/18/2018 Active gabapentin (NEURONTIN) 300 MG CapsuleIndications:T ype 2 diabetes mellitus with hemoglobin A1c goal of 7.0%-8.0% ([facility]) Take 1 Cap by mouth 3 times a day. 270 Cap 5 01/01/2019 Active Blood Glucose Monitoring Suppl (ONETOUCH ULTRA 2) w/Device KIT Use to test BG values 1 Kit 0 01/26/2019 Active metoprolol tartrate (LOPRESSOR) 25 MG TabletIndications:HT N, goal below 130/80,Acute diastolic congestive heart failure (HCC),Body mass index (BMI) of 50.0 to 59.9 in adult ([facility]),Hypoxemia,ELISSA (obstructive sleep apnea),HTN, goal below [...] [facility]) Inject 0.5 mg under the skin [...] 08/09/2019 Active Vitamin D, Ergocalciferol, 1.25 MG (69954 UT) CapsuleIndications:V itamin D deficiency Take 1 Cap by mouth every 4 weeks. 13 Cap 0 08/24/2019 Active documented as of this encounter (statuses as of 09/18/2019) Active Problems Problem Noted Date 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, NYHA class 1 and CKD stage 3 05/14/2019 Other atherosclerosis of [place] arteries of extremities, left leg 02/26/2019 Lumbar [...] as of this encounter (statuses as of 09/18/2019) Resolved Problems Problem Noted Date Resolved Date [...] as of this encounter (statuses as of 09/18/2019) Immunizations Name Administration Dates Next Due Pneumococcal [...] encounter Miscellaneous Notes * Telephone Encounter - Homa, Brianna Sanches RN - 08/28/2019 5:27 PM EST [facility] dressed poultry grader Acute Call Date: 08/28/2019 Time: 5:27 PM Name: Stephanie Camp : 1955 Caller: patient Relationship to No chief complaint on file. HPI: Stephanie Camp is a 64 year old old female that is calling [facility] Intake to report wasgetting ready for bed and noticed red pinpoint velasquez on her legs, abdomen and some on her arms. They are not raised and are pencil point in size. Denies chest pain, SOB, no throat, swollowing for tongue issues. No itching, No fever, no new detergents, meds, or foods ROS: Skin/Integumentary ROS: No edema, No itching and Positive for pencil point under skin (not raised) rash- arms, abdomen, upper legs and lower legs Nursing Assessment: Patient's chief complaint for this call: Other, describe new onset pencil point non raised rash Symptom Assessment Onset of Symptoms: Less than 24 hours Fall within a week of symptom onset: Unknown Pain Denies pain Baseline Assessment Able to performing ADLs at baseline (walking, daily tasks, etc.): Yes Chief Complaint is related to a chronic condition: Unknown Patient prescribed oxygen? Unknown Patient has been ordered DME equipment (assistive devices, respiratory equipment, etc.): Unknown Medication Reconciliation: (See medication list) Received flu shot this season: Unknown Taking medication as ordered: Yes Medications ordered/taking to treat reason for call: No Heart failure symptoms: No COPD exacerbation symptoms: No Reinforcement Education: Watch the rash, call if any us back at [phone] if other symptoms start LES is going out tomorrow to get a picture and send to [facility] Treatment/Plan: (need to report) Level of call: Non-Acute Recommended treatment plan:LES is going out tomorrow to get a picture and send to aStish Lambert Call back instructions provided to patient. documented in this encounter Plan of Treatment Upcoming Encounters Date Type Specialty Care Team Description 09/27/2019 Office Visit Dermatology Apple Kaminski MD [address] [place] [address], [place] [address] [phone] 10/03/2019 Office Visit Gynecology Obstetrics Yumiko Cast [facility] [address] [facility] [place] [address] [phone] 10/09/2019 Home Visit [facility] Teddy Mccrary RN [address] [place] [address] [phone] 10/29/2019 Pharmacy Pharmacy [facility] [address] [place] [address] 11/07/2019 Office Visit Family Medicine Kevin Whiteside DO [address] [place] [address] [phone] 11/22/2019 Office Visit Pulmonary Celsa Tafoya CRNP [address] [place] [address] [phone] 02/26/2020 Office Visit Cardiology Rey Woodall MD [address] [place] [address] [phone] Health Maintenance Due Date Last Done Comments Zoster Vaccines (2 of 3) 02/05/2016 12/11/2015 PAP SMEAR-EVERY 3 YRS,AGES 21-65 05/11/2016 05/11/2013, 03/01/2008, 10/19/2006, Additional history exists CKD PHOS USE SMARTSET 35680 12/29/2018 04/0 01/2018, 08/26/2009, 08/25/2009, Additional history exists DIABETES-FOOT EXAM 01/02/2020 01/01/2019, 0 12/29/2017, 10/21/2016, Additional history exists DIABETES-HGBA1C EVERY 6 MONTHS 02/07/2020 08/09/2019, 03/14/2019, 09/27/2018, Additional history exists CKD GFR USE SMARTSET 08750 03/11/202009/10, 08/09/2019, 07/20/2019, Additional history exists Yearly B-12 03/14/2020 03/14/2019, 05/16/2018 DIABETES-EYE EXAM 04/05/2020 04/05/2019, (Done elsewhere), 12/18/2009, Additional history exists DIABETES-URINE MICROALBUMIN EVERY 12 MONTHS 05/24/2020 05/24/2019, 02/26/2019, 12/23/2018, Additional history exists BREAST CANCER SCREENING DISCUSSION YEARLY AGES 40-75 07/10/2020 07/10/2019, 06/23/2018, 05/09/2015, Additional history exists CKD HGB USE SMARTSET 50315 09/10/202009/10, 07/20/2019, 02/26/2019, Additional history exists Pneumococcal Vaccine: Pediatrics (0 [...] Documents on File Type Date Recorded Patient Advice Clerk Expl 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
--- OUTSIDE RECORDS SUMMARY | 2023-06-01 05:37 | External Medical Summary | Summary of Care ---
Author Name Unknown Organization [place] [address] Care Team Providers Care Primary Clinician Name Role Phone Migue Whiteside DO Primary Care Provider Reason for Visit * Reason Comments eRx-Medication Refill Encounter Details Date Type Department Care Team Description 10/09/2019 Refill Family Practice [facility] [address] [place] [address] Migue Whiteside DO [address] [facility] [place] [address] [phone] Fibromyalgia; Moderate episode of recurrent major depressive [...] as of this encounter (statuses as of 10/11/2019) Medications Medication Sig Dispensed Refills Start Date End Date Status PRILOSEC 20 MG PO CPDR one tablet daily 0 Active docusate sodium (STOOL SOFTENER) 100 MG Capsule Take 100 mg by mouth 2 times a day as needed for Constipation. 0 Active cyclobenzaprine (FLEXERIL) 10 MG Tablet TAKE ONE TABLET BY MOUTH AT BEDTIME NEEDED FOR MUSCLE SPASM 90 Tab 2 8 Active Nortriptyline HCl (PAMELOR) 50 MG CapsuleIndications: Fibromyalgia Take 1 Cap by mouth at bedtime. 90 Cap 5 8 Active ONETOUCH DELICA LANCETS 33G MISC Check blood sugars 3-4 times daily 180 Each 5 8 Active Glucose Blood (ACCU-CHEK HARRIS PLUS) STRP Test sugar 3-4 times a day. 400 Strip 3 8 Active ACCU-CHEK SOFTCLIX LANCETS MISC Test sugar 3-4 times a day. Ok to substitute Fastclix lancets, if needed. 400 Box Dosing Unit 3 8 Active gabapentin (NEURONTIN) 300 MG CapsuleIndications: Type 2 diabetes mellitus with hemoglobin A1c goal of 7.0%-8.0% (HCC) Take 1 Cap by mouth 3 times a day. 270 Cap 5 9 Active Blood Glucose Monitoring Suppl (ONETOUCH ULTRA [...] mouth daily. 90 Tab 3 9 Active Semaglutide,0.25 or 0.5MG/DOS, (OZEMPIC, 0.25 OR 0.5 MG/DOSE,) 2 MG/1.5ML SOPNIndications:Typ e 2 diabetes mellitus with hemoglobin A1c goal of 7.0%-8.0% ([facility]) Inject 0.5 mg under the skin once a week. 3 Pre-filled Pen Syringe Dosing Unit 12 9 Active DULoxetine (CYMBALTA) 30 MG CPEP Take 1 Cap by mouth daily. Take along with the 60mg dose for totally of 90mg daily. Do not cut, crush or chew 90 Cap 5 9 Active traMADol (ULTRAM) 50 MG TabletIndications:C hronic pain syndrome Take 1 Tab by mouth every 8 hours as needed for Pain, Severe. 90 Tab 0 9 Active Vitamin D, Ergocalciferol, 1.25 MG (89374 UT) CapsuleIndications: Vitamin D deficiency Take 1 [...] OTHER MEDS 90 Tab 1 9 Active colchicine 0.6 MG TabletIndications:V asculitis (HCC) Take 1/2 tab twice daily 30 Tab 0 9 Active clobetasol propionate (TEMOVATE) 0.05 % creamIndications:Va sculitis (HCC) apply to rash on the legs and arm twice daily x 1-2 weeks. 30 g 5 9 Active insulin aspart (INSULIN ASPART) 100 UNIT/ML injection USE IN INSULIN PUMP UP TO 200 UNITS PER DAY 30 mL 7 9 Active clonazePAM (KLONOPIN) 0.5 MG TabletIndications:A nxiety state TAKE ONE TABLET BY MOUTH TWICE DAILY 60 Tab 0 9 Active DULoxetine (CYMBALTA) 60 MG CPEPIndications:Fib romyalgia,Moderate episode of recurrent major depressive disorder (HCC),Primary osteoarthritis of both knees Take 1 Cap by mouth daily. Along with 30 mg capsule to total 90 mg daily. 90 Cap 4 0 Active DULoxetine (CYMBALTA) 60 MG CPEPIndications:Fib romyalgia,Moderate episode of recurrent major depressive disorder (HCC),Primary osteoarthritis of both knees Take 1 Cap by mouth daily. 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, NYHA class 1 and CKD stage 3 05/14/2019 Other atherosclerosis of [place] arteries of extremities, left leg 02/26/2019 Lumbar [...] Overview: ICD-10 update of inactive term [place] filter in place 08/19/2014 History of pulmonary [...] as of this encounter (statuses as of 10/11/2019) Resolved Problems Problem Noted Date Resolved Date [...] as of this encounter (statuses as of 10/11/2019) Immunizations Name Administration Dates Next Due Pneumococcal [...] Telephone Encounter - Migue Whiteside DO - 10/11/2019 7:37 AM EST Signed Prescriptions: Disp Refills DULoxetine (CYMBALTA) 60 MG CPEP 90 Cap 4 Sig: Take 1 Cap by mouth daily. Along with 30 mg capsule to total 90 mg daily. Authorizing Provider: MIGUE WHITESIDE * Telephone Encounter - Anne Burroughs RP - 10/11/2019 7:12 AM EST Pending Prescriptions: Disp Refills DULoxetine (CYMBALTA) 60 MG CPEP [Pharmac*90 Cap 4 Sig: Take 1 Cap by mouth daily. Along with 30 mg capsule to total 90 mg daily. * Telephone Encounter - Anne Burroughs RP - 10/11/2019 7:11 AM EST Unable to authorize medication refills for duloxetine at this time. Patient did not meet protocol requirements. Patients recent BMP not within normal limits. Please approve if appropriate. Thanks, Anne Burroughs [facility] Clinical Pharmacist Telepharmacy [phone] 10/11/2019, 7:11 AM * Telephone Encounter - Anne Burroughs RP - 10/11/2019 7:10 AM EST Pending Prescriptions: Disp Refills DULoxetine (CYMBALTA) 60 MG CPEP [Pharmac*90 Cap 4 Sig: TAKE ONE CAPSULE BY MOUTH DAILY. do not cut crush or chew Last Office Visit: 09/05/2019 Next Office Visit: 11/07/2019 Scheduled Provider(s): Migue Whiteside, DO If no future appointments scheduled, and last appointment is greater than a year ago, please schedule patient for a follow-up appointment Last date the medication was ordered: 12/18/2018 Pharmacy: [id number] Is this request for a controlled [...] 10/18/2019 Home Visit [facility] Malissa Castro, RN [address] [place] [address] [phone] 10/23/2019 Imaging Radiology 10/29/2019 Pharmacy Pharmacy [facility] [address] [place] [address] 11/07/2019 Office Visit Family Medicine Migue Whiteside DO [address] [place] [address] [phone] 11/22/2019 Office Visit Pulmonary Celsa Tafoya CRNP [address] [place] [address] [phone] 02/26/2020 Office Visit Cardiology Rey Woodall MD [address] [place] [address] [phone] Health Maintenance Due Date Last Done Comments Zoster Vaccines (2 of 3) 02/05/2016 12/11/2015 CKD PHOS USE SMARTSET 37539 12/29/2018 04/0 01/2018, 08/26/2009, 08/25/2009, Additional history exists DIABETES-FOOT EXAM 01/02/2020 01/01/2019, 0 12/29/2017, 10/21/2016, Additional history exists DIABETES-HGBA1C EVERY 6 MONTHS 02/07/2020 08/09/2019, 03/14/2019, 09/27/2018, Additional history exists CKD GFR USE SMARTSET 00552 03/11/202009/10, 08/09/2019, 07/20/2019, Additional history exists Yearly B-12 03/14/2020 03/14/2019, 05/16/2018 DIABETES-EYE EXAM 04/05/2020 04/05/2019, (Done elsewhere), 12/18/2009, Additional history exists DIABETES-URINE MICROALBUMIN EVERY 12 MONTHS 05/24/2020 05/24/2019, 02/26/2019, 12/23/2018, Additional history exists BREAST CANCER SCREENING DISCUSSION YEARLY AGES 40-75 07/10/2020 07/10/2019, 06/23/2018, 05/09/2015, Additional history exists CKD HGB USE SMARTSET 56796 09/10/202009/10, 07/20/2019, 02/26/2019, Additional history exists PAP [...] both knees Primary localized osteoarthrosis, lower leg documented in this encounter Advance Directives Documents on File Type Date Recorded Patient Defensive Secondary Coach Expl 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
--- OUTSIDE RECORDS SUMMARY | 2023-06-01 05:37 | External Medical Summary | Summary of Care ---
Author Name Unknown Organization [place] [address] Care Team Providers Care Material Coordinator Name Role Phone Kevin Whiteside DO Primary Care Provider Reason for Visit * Reason Comments Appointment lmom 09/17 Encounter Details Date Type Department Care Team Description 09/13/2019 Telephone Pulmonary Medicine, [facility] [address] [facility] [place] [address] Celsa Tafoya CRNP [address] [place] [address] Appointment (lmom 09/17) Allergies Active Allergy Reactions Severity Noted Date Comments Pollen 05/18/2019 Heparin 09/04/2009 Heparin Induced Thrombocytopenia Empagliflozin Other (Please comment) Medium 05/17/2018 3 yeast infections in 6 weeks after starting Morphine And Related 09/16/1997 Hallucinations Tetanus Toxoid Other (Please comment) 06/15/2011 Passed out documented as of this encounter (statuses as of 09/17/2019) Medications Medication Sig Dispensed Refills Start Date [...] 3 08/30/2018 Active DULoxetine (CYMBALTA) 60 MG CPEPIndications:Fib romyalgia,Moderate episode of recurrent major depressive disorder (HCC),Primary osteoarthritis of both knees Take 1 Cap by mouth daily. Do not cut, crush or chew 90 Cap 5 12/18/2018 Active gabapentin (NEURONTIN) 300 MG CapsuleIndications: Type [...] mouth daily. 90 Tab 3 07/10/2019 Active clonazePAM (KLONOPIN) 0.5 MG TabletIndications:A nxiety state TAKE ONE TABLET BY MOUTH TWICE DAILY 60 Tab 1 07/16/2019 Active Semaglutide,0.25 or 0.5MG/DOS, (OZEMPIC, 0.25 OR [...] 08/09/2019 Active Vitamin D, Ergocalciferol, 1.25 MG (02086 UT) CapsuleIndications: Vitamin D deficiency Take 1 [...] OTHER MEDS 90 Tab 1 09/02/2019 Active mupirocin calcium (BACTROBAN) 2 % ointmentIndications :Nostril sore Apply topically to affected area 3 times a day for 14 days. Apply to affected area. 22 g 1 09/05/2019 9 Active colchicine 0.6 MG TabletIndications:V asculitis (HCC) Take 1/2 tab twice daily 30 Tab 0 09/10/2019 Active clobetasol propionate (TEMOVATE) 0.05 % creamIndications:Va sculitis (HCC) apply to rash on the legs and arm twice daily x 1-2 weeks. 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 Left detailed message that we can move 11/26 appt to 11/28 to allow for 60 minutes. * Telephone Encounter - Rema Barroos OSA - 09/13/2019 7:47 AM EST Return in about 3 months (around 12/12/2019) for pulm/sleep return 60 mins. Celsa / pulm documented in this encounter Plan of Treatment Upcoming Encounters Date Type Specialty Care Team Description 09/27/2019 Office Visit Dermatology Apple Kaminski MD [address] [place] [address], [place] [address] [phone] 10/03/2019 Office Visit Gynecology Obstetrics Yumiko Cast, [facility] [place] [address] [phone] 10/09/2019 Home Visit [facility] Teddy Mccrary RN [address] [place] [address] [phone] 10/29/2019 Pharmacy Pharmacy [facility] [address] [place] [address] 11/07/2019 Office Visit Family Medicine Kevin Whiteside DO [address] [place] [address] [phone] 11/27/2019 Office Visit Pulmonary Celsa Tafoya CRNP [address] [place] [address] [phone] 02/26/2020 Office Visit Cardiology Rey Woodall MD [address] [place] [address] [phone] Health Maintenance Due Date Last Done Comments Zoster Vaccines (2 of 3) 02/05/2016 12/11/2015 PAP SMEAR-EVERY 3 YRS,AGES 21-65 05/11/2016 05/11/2013, 03/01/2008, 10/19/2006, Additional history exists CKD PHOS USE SMARTSET 53298 12/29/2018 04/0 01/2018, 08/26/2009, 08/25/2009, Additional history exists DIABETES-FOOT EXAM 01/02/2020 01/01/2019, 0 12/29/2017, 10/21/2016, Additional history exists DIABETES-HGBA1C EVERY 6 MONTHS 02/07/2020 08/09/2019, 03/14/2019, 09/27/2018, Additional history exists CKD GFR USE SMARTSET 45866 03/11/202009/10, 08/09/2019, 07/20/2019, Additional history exists Yearly B-12 03/14/2020 03/14/2019, 05/16/2018 DIABETES-EYE EXAM 04/05/2020 04/05/2019, (Done elsewhere), 12/18/2009, Additional history exists DIABETES-URINE MICROALBUMIN EVERY 12 MONTHS 05/24/2020 05/24/2019, 02/26/2019, 12/23/2018, Additional history exists BREAST CANCER SCREENING DISCUSSION YEARLY AGES 40-75 07/10/2020 07/10/2019, 06/23/2018, 05/09/2015, Additional history exists CKD HGB USE SMARTSET 03969 09/10/202009/10, 07/20/2019, 02/26/2019, Additional history exists Pneumococcal [...] Documents on File Type Date Recorded Patient Playback Operator Expl 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
--- OUTSIDE RECORDS SUMMARY | 2023-06-01 05:37 | External Medical Summary | Summary of Care ---
Author Name Unknown Organization [place] [address] Care Team Providers Care Sheetfed Press Operator Name Role Phone Migue Whiteside DO Primary Care Provider Reason for Visit * Reason Comments eRx-Medication Refill Encounter Details Date Type Department Care Team Description 09/17/2019 Refill Family Practice [facility] [address] [place] [address] Migue Whiteside DO [address] [facility] [place] [address] [phone] Anxiety state Allergies Active Allergy Reactions Severity [...] 5 01/01/2019 Active Blood Glucose Monitoring Suppl (TerraLUXTOUCH ULTRA 2) w/Device KIT Use to test BG values 1 Kit 0 01/26/2019 Active metoprolol tartrate (LOPRESSOR) 25 MG TabletIndications:H TN, goal below 130/80,Acute diastolic congestive heart failure ([facility]),Body mass index (BMI) of 50.0 to 59.9 [...] goal of 7.0%-8.0% ([facility]) Inject 0.5 mg under the skin once [...] 08/09/2019 Active Vitamin D, Ergocalciferol, 1.25 MG (06545 UT) CapsuleIndications: Vitamin D deficiency Take 1 [...] TWICE DAILY 60 Tab 0 09/18/2019 Active clonazePAM (KLONOPIN) 0.5 MG TabletIndications:A nxiety state TAKE ONE TABLET BY MOUTH TWICE DAILY 60 Tab 1 07/16/2019 9 Discontinu ed(Refill) Hospital, Clinic, or Other [...] CKD stage 3 05/14/2019 Other atherosclerosis of [place] arteries of extremities, left leg 02/26/2019 Lumbar [...] Telephone Encounter - Migue Whiteside DO - 09/18/2019 12:35 PM EST Signed Prescriptions: Disp Refills clonazePAM (KLONOPIN) 0.5 MG Tablet 60 Tab 0 Sig: TAKE ONE TABLET BY MOUTH TWICE DAILY Authorizing Provider: MIGUE WHITESIDE * Telephone Encounter - Pop Cruz [facility] - 09/18/2019 11:56 AM EST Pending Prescriptions: Disp Refills clonazePAM (KLONOPIN) 0.5 MG Tablet [Phar*60 Tab 0 Sig: TAKE ONE TABLET BY MOUTH TWICE DAILY Electronically signed by Pop Cruz [facility] at 09/18/2019 11:56 AM EST * Telephone Encounter - Parish Shepherd, crosstie inspector - 09/18/2019 11:52 AM EST Pending Prescriptions: Disp Refills clonazePAM (KLONOPIN) 0.5 MG Tablet [Phar*60 Tab 0 Sig: TAKE ONE TABLET BY MOUTH TWICE DAILY * Telephone Encounter - Parish Shepherd PHARM Tech - 09/18/2019 11:50 AM EST I have reviewed the patients controlled substance dispensing history in the Prescription Drug Monitoring Program in compliance with the [facility] regulations before prescribing a controlled substance. PDMP checked on 09/18/2019. Patient requesting: Clonazepam 0.5mg, filled 08/19/2019, for #60 for a 30 day supply. Other recent controlled medication fills: Tramadol 50mg, filled 08/10/2019, for #90 for a 30 day supply. Last Office Visit: 09/05/2019 Next Office Visit: 11/07/2019 Scheduled Provider(s): Migue Whiteside, DO Date medication is due for refill: 09/17/2019 Pharmacy: [facility] [id number] Is this request for a [...] Review. Please approve if appropriate. Thank you, Parish Shepherd [facility] Refill Call Center 09/18/2019, 11:51 AM documented in this encounter Plan of Treatment Upcoming Encounters Date Type Specialty Care Team Description 09/27/2019 Office Visit Dermatology Apple Kaminski MD [address] [place] [address] [phone] 10/03/2019 Office Visit Gynecology Obstetrics Yumiko Cast, CN [address] [place] [address] [phone] 10/09/2019 Home Visit [facility] Teddy Mccrary, RN [address] [place] [address] [phone] 10/29/2019 Pharmacy Pharmacy [facility] [place] [address] [place] [address] 11/07/2019 Office Visit Family Medicine Migue Whiteside DO [address] [place] [address] [phone] 11/22/2019 Office Visit Pulmonary Celsa Tafoya CRNP [address] [place] [address] [phone] 02/26/2020 Office Visit Cardiology Rey Woodall MD [address] [place] [address] [phone] Health Maintenance Due Date Last Done Comments Zoster Vaccines (2 of 3) 02/05/2016 12/11/2015 PAP SMEAR-EVERY 3 YRS,AGES 21-65 05/11/2016 05/11/2013, 03/01/2008, 10/19/2006, Additional history exists CKD PHOS USE SMARTSET 96799 12/29/2018 04/0 01/2018, 08/26/2009, 08/25/2009, Additional history exists DIABETES-FOOT EXAM 01/02/2020 01/01/2019, 0 12/29/2017, 10/21/2016, Additional history exists DIABETES-HGBA1C EVERY 6 MONTHS 02/07/2020 08/09/2019, 03/14/2019, 09/27/2018, Additional history exists CKD GFR USE SMARTSET 70453 03/11/202009/10, 08/09/2019, 07/20/2019, Additional history exists Yearly B-12 03/14/2020 03/14/2019, 05/16/2018 DIABETES-EYE EXAM 04/05/2020 04/05/2019, (Done elsewhere), 12/18/2009, Additional history exists DIABETES-URINE MICROALBUMIN EVERY 12 MONTHS 05/24/2020 05/24/2019, 02/26/2019, 12/23/2018, Additional history exists BREAST CANCER SCREENING DISCUSSION YEARLY AGES 40-75 07/10/2020 07/10/2019, 06/23/2018, 05/09/2015, Additional history exists CKD HGB USE SMARTSET 05183 09/10/202009/10, 07/20/2019, 02/26/2019, Additional history exists Pneumococcal [...] Documents on File Type Date Recorded Patient Seismology Teacher Expl 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
--- OUTSIDE RECORDS SUMMARY | 2023-06-01 05:37 | External Medical Summary | Summary of Care ---
Author Name Unknown Organization [place] [address] Care Team Providers Care Receptionist Nurse Name Role Phone Stevo Kevin Ocampomelinda Primary Care Provider Reason for Visit * Reason Comments [facility]: Maintenance Encounter Details Date Type Department Care Team Description 09/27/2019 Telephone [facility] [id number], Scheduling [address] [place] [address] [facility]: Maintenance Allergies Active Allergy Reactions Severity Noted Date Comments Pollen 05/18/2019 Heparin 09/04/2009 Heparin Induced Thrombocytopenia Empagliflozin Other (Please comment) Medium 05/17/2018 3 yeast infections in 6 weeks after starting Morphine And Related 09/16/1997 Hallucinations Tetanus Toxoid Other (Please comment) 06/15/2011 Passed out documented as of this encounter (statuses as of 09/27/2019) Medications Medication Sig Dispensed Refills Start Date [...] 5 01/01/2019 Active Blood Glucose Monitoring Suppl ([employer] [place] ULTRA 2) w/Device KIT Use to test [...] goal of 7.0%-8.0% ([facility]) Inject 0.5 mg under the [...] 08/09/2019 Active Vitamin D, Ergocalciferol, 1.25 MG (64005 UT) CapsuleIndications:V itamin D deficiency Take 1 [...] 09/10/2019 Active clobetasol propionate (TEMOVATE) 0.05 % creamIndications:Vas [...] TWICE DAILY 60 Tab 0 09/18/2019 Active Hospital, Clinic, or Other Facility Administered Medication Ordered Dose Route Frequency Start Date End Date Status levalbuterol (XOPENEX) inhalation solution 0.63 mgIndications:Wheezing 0.63 mg NEBULIZER Q4H PRN 09/12/2019 Ac tive levalbuterol (XOPENEX) inhalation solution 1.25 mgIndications:AVENDAÑO (dyspnea on exertion),Wheezing 1.25 mg NEBULIZER Q4H PRN 09/13/2019 Active documented as of this encounter (statuses as of 09/27/2019) Active Problems Problem Noted Date 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, NYHA class 1 and CKD stage 3 05/14/2019 Other atherosclerosis of [place] arteries of extremities, left leg 02/26/2019 Lumbar [...] 10/14/2014 Overview: ICD-10 update of inactive term [place] filter in place 08/19/2014 History of pulmonary [...] as of this encounter (statuses as of 09/27/2019) Resolved Problems Problem Noted Date Resolved Date [...] as of this encounter (statuses as of 09/27/2019) Immunizations Name Administration Dates Next Due Pneumococcal [...] Telephone Encounter - Vickie Madsen OSA - 09/27/2019 3:22 PM EST Outbound call to patient, Ed McCash will not longer be with gus HERNANDEZ with date, time and provider change. Rescheduled; 10/18/19 at 2:00pm with Malissa Castro RNCM Phone number provided for [facility] at [phone]. ELISSA Kaufman documented in this encounter Plan of Treatment Upcoming Encounters Date Type Specialty Care Team Description 10/03/2019 Office Visit Gynecology Obstetrics Yumiko Cast, [address] [place] [address] [phone] 10/18/2019 Home Visit [facility] Malissa Castro RN [address] [place] [address] [phone] 10/29/2019 Pharmacy Pharmacy [facility] [address] [place] [address] 11/07/2019 Office Visit Family Medicine Kevin Whiteside DO [address] [place] [address] [phone] 11/22/2019 Office Visit Pulmonary Celsa Tafoya CRNP [address] [place] [address] [phone] 02/26/2020 Office Visit Cardiology Rey Woodall MD [address] [place] [address] [phone] Health Maintenance Due Date Last Done Comments Zoster Vaccines (2 of 3) 02/05/2016 12/11/2015 PAP SMEAR-EVERY 3 YRS,AGES 21-65 05/11/2016 05/11/2013, 03/01/2008, 10/19/2006, Additional history exists CKD PHOS USE SMARTSET 87032 12/29/2018 04/01/2018, 08/26/2009, 08/25/2009, Additional history exists DIABETES-FOOT EXAM 01/02/2020 01/01/2019, 0 12/29/2017, 10/21/2016, Additional history exists DIABETES-HGBA1C EVERY 6 MONTHS 02/07/2020 08/09/2019, 03/14/2019, 09/27/2018, Additional history exists CKD GFR USE SMARTSET 90030 03/11/202009/10, 08/09/2019, 07/20/2019, Additional history exists Yearly B-12 03/14/2020 03/14/2019, 05/16/2018 DIABETES-EYE EXAM 04/05/2020 04/05/2019, (Done elsewhere), 12/18/2009, Additional history exists DIABETES-URINE MICROALBUMIN EVERY 12 MONTHS 05/24/2020 05/24/2019, 02/26/2019, 12/23/2018, Additional history exists BREAST CANCER SCREENING DISCUSSION YEARLY AGES 40-75 07/10/2020 07/10/2019, 06/23/2018, 05/09/2015, Additional history exists CKD HGB USE SMARTSET 14872 09/10/202009/10, 07/20/2019, 02/26/2019, Additional history exists Pneumococcal [...] Documents on File Type Date Recorded Patient Metallurgical Tester Expl 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
--- OUTSIDE RECORDS SUMMARY | 2023-06-01 05:37 | External Medical Summary | Summary of Care ---
Author Name Unknown Organization [place] [address] Care Team Providers Care Color Maker Name Role Phone Kevin Whiteside DO Primary Care Provider Reason for Visit * Reason Comments Appointment Encounter Details Date Type Department Care Team Description 09/13/2019 Telephone Pulmonary Medicine, [facility] 132 [facility] [place] [address] Celsa Tafoya CRNP [address] [facility] [place] [address] Appointment Allergies Active [...] 5 01/01/2019 Active Blood Glucose Monitoring Suppl (SokikomTOUCH ULTRA 2) w/Device KIT Use to test BG values 1 Kit 0 01/26/2019 Active metoprolol tartrate (LOPRESSOR) 25 MG TabletIndications:H TN, goal below 130/80,Acute diastolic congestive heart failure ([facility]),Body mass index (BMI) of 50.0 to 59.9 in adult ([facility]),Hypoxemia,ELISSA (obstructive sleep apnea),HTN, goal below 140/80 Take [...] of 7.0%-8.0% ([facility]) Inject 0.5 mg under the skin once [...] 08/09/2019 Active Vitamin D, Ergocalciferol, 1.25 MG (41265 UT) CapsuleIndications: Vitamin D deficiency Take 1 [...] CKD stage 3 05/14/2019 Other atherosclerosis of [place] arteries of extremities, left leg 02/26/2019 Lumbar [...] 10/14/2014 Overview: ICD-10 update of inactive term [place] filter in place 08/19/2014 History of pulmonary [...] Telephone Encounter - Rema Barroso OSA - 09/18/2019 9:59 AM EST Swp, appt moved to 11/22 at 3:15 for 60 min with Celsa * Telephone Encounter - Rema Barroso OSA - 09/17/2019 2:18 PM EST Pt needs to be 60 min. Left detailed message that we can move 11/26 appt to 11/28 to allow for 60 minutes. * Telephone Encounter - Rema Barroso OSA - 09/13/2019 7:47 AM EST Return in about 3 months (around 12/12/2019) for pulm/sleep return 60 mins. Celsa / freddy documented in this encounter Plan of Treatment Upcoming Encounters Date Type Specialty Care Team Description 09/27/2019 Office Visit Dermatology Apple Kaminski MD [address] [place] [address] [phone] 10/03/2019 Office Visit Gynecology Obstetrics Yumiko Cast, [facility] [address] [facility] [place] [address] [phone] 10/09/2019 Home Visit [facility] Teddy Mccrary RN [address] [place] [address] [phone] 10/29/2019 Pharmacy Pharmacy [facility] [place] [address] [place] [address] 11/07/2019 Office Visit Family Medicine Kevin Whiteside DO [address] [place] [address] [phone] 11/22/2019 Office Visit Pulmonary Celsa Tafoya CRNP [address] [place] [address] [phone] 02/26/2020 Office Visit Cardiology Rey Woodall MD [address] [place] [address] [phone] Health Maintenance Due Date Last Done Comments Zoster Vaccines (2 of 3) 02/05/2016 12/11/2015 PAP SMEAR-EVERY 3 YRS,AGES 21-65 05/11/2016 05/11/2013, 03/01/2008, 10/19/2006, Additional history exists CKD PHOS USE SMARTSET 84169 12/29/2018 04/0 01/2018, 08/26/2009, 08/25/2009, Additional history exists DIABETES-FOOT EXAM 01/02/2020 01/01/2019, 0 12/29/2017, 10/21/2016, Additional history exists DIABETES-HGBA1C EVERY 6 MONTHS 02/07/2020 08/09/2019, 03/14/2019, 09/27/2018, Additional history exists CKD GFR USE SMARTSET 46368 03/11/202009/10, 08/09/2019, 07/20/2019, Additional history exists Yearly B-12 03/14/2020 03/14/2019, 05/16/2018 DIABETES-EYE EXAM 04/05/2020 04/05/2019, (Done elsewhere), 12/18/2009, Additional history exists DIABETES-URINE MICROALBUMIN EVERY 12 MONTHS 05/24/2020 05/24/2019, 02/26/2019, 12/23/2018, Additional history exists BREAST CANCER SCREENING DISCUSSION YEARLY AGES 40-75 07/10/2020 07/10/2019, 06/23/2018, 05/09/2015, Additional history exists CKD HGB USE SMARTSET 03628 09/10/202009/10, 07/20/2019, 02/26/2019, Additional history exists Pneumococcal [...] Documents on File Type Date Recorded Patient Siding Coreboard Inspector Expl 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
--- OUTSIDE RECORDS SUMMARY | 2023-06-01 05:37 | External Medical Summary | Summary of Care ---
Author Name Unknown Organization [place] [address] Care Team Providers Care Body Joiner Name Role Phone Kevin Whiteside DO Primary Care Provider Reason for Referral * Evaluate & Treat - Unlimited Visits (Within 10 days (routine)) Status Reason Specialty Diagnoses / Procedures Referred By Contact Referred To Contact Pending Review Specialty Services Required Pulmonary Diseases Diagnoses Nocturnal hypoxemia Kevin Whiteside DO [address] [facility] [place] [address] Reason for Visit * Reason Comments [facility]: Maintenance Encounter Details Date Type Department Care Team Description 09/22/2019 Scheduled Telephone [facility] 132 [facility] [place] [address] Teddy Mccrary, RN [address] [place] [address] [phone] Nocturnal hypoxemia* Allergies Active Allergy Reactions Severity Noted Date Comments Pollen 05/18/2019 Heparin 09/04/2009 Heparin Induced Thrombocytopenia Empagliflozin Other (Please comment) Medium 05/17/2018 3 yeast infections in 6 weeks after starting Morphine And Related 09/16/1997 Hallucinations Tetanus Toxoid Other (Please comment) 06/15/2011 Passed out documented as of this encounter (statuses as of 09/24/2019) Medications Medication Sig Dispensed Refills Start Date [...] 5 01/01/2019 Active Blood Glucose Monitoring Suppl ([email or web address] ULTRA 2) w/Device KIT Use to test BG values 1 Kit 0 01/26/2019 Active metoprolol tartrate (LOPRESSOR) 25 MG TabletIndications:HT N, goal below 130/80,Acute diastolic congestive heart failure ([facility]),Body mass index (BMI) of 50.0 to 59.9 in adult ([facility]),Hypoxemia,ELISSA (obstructive sleep apnea),HTN, goal below 140/80 Take [...] A1c goal of 7.0%-8.0% ([facility]) Inject 0.5 mg under the skin once [...] 08/09/2019 Active Vitamin D, Ergocalciferol, 1.25 MG (76116 UT) CapsuleIndications:V itamin D deficiency Take 1 [...] as of this encounter (statuses as of 09/24/2019) Active Problems Problem Noted Date 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, NYHA class 1 and CKD stage 3 05/14/2019 Other atherosclerosis of [place] arteries of extremities, left leg 02/26/2019 Lumbar [...] 10/14/2014 Overview: ICD-10 update of inactive term [place] filter in place 08/19/2014 History of pulmonary [...] as of this encounter (statuses as of 09/24/2019) Resolved Problems Problem Noted Date Resolved Date [...] as of this encounter (statuses as of 09/24/2019) Immunizations Name Administration Dates Next Due Pneumococcal [...] encounter Miscellaneous Notes * Telephone Encounter - Teddy Mccrary RN - 09/22/2019 4:52 PM EST Phone call to pt to update her on the reply from Celsa SIMPSON: "Ed, Would you mind putting in a Pulmonary Referral since she hasn't been evaluated by Pulmonary. Thanksfor the heads up, I'll get the ball rolling then. My gut says this isn't airways related but a formal work up would be helpful." Informed pt I would be pending a pulm referral to her PCP. Pt understands to call the toll free number for [facility], for questions or worsening symptoms. Call 911 for emergencies. Woody Mccrary RN CM documented in this encounter Plan of Treatment Upcoming Encounters Date Type Specialty Care Team Description 09/27/2019 Office Visit Dermatology Apple Kaminski MD [address] [place] [address] [phone] 10/03/2019 Office Visit Gynecology Obstetrics [address]umiko Cast [address] [place] [address] [phone] 10/09/2019 Home Visit [facility] Teddy Mccrary RN [address] [place] [address] [phone] 10/29/2019 Pharmacy Pharmacy [facility] [place] [address] [place] [address] 11/07/2019 Office Visit Family Medicine Kevin Whiteside DO [address] [place] [address] [phone] 11/22/2019 Office Visit Pulmonary Celsa Tafoya CRNP [address] [place] [address] [phone] 02/26/2020 Office Visit Cardiology Rey Woodall MD [address] [place] [address] [phone] Scheduled Referrals Name Type Priority Associated Diagnoses Orde r Schedule PULMONARY REFERRAL OP Referral Within 10 days (routine) Nocturnal hypoxemia Ordered: 09/24/2019 Health Maintenance Due Date Last Done Comments Zoster Vaccines (2 of 3) 02/05/2016 12/11/2015 PAP SMEAR-EVERY 3 YRS,AGES 21-65 05/11/2016 05/11/2013, 03/01/2008, 10/19/2006, Additional history exists CKD PHOS USE SMARTSET 30103 12/29/2018 04/0 01/2018, 08/26/2009, 08/25/2009, Additional history exists DIABETES-FOOT EXAM 01/02/2020 01/01/2019, 0 12/29/2017, 10/21/2016, Additional history exists DIABETES-HGBA1C EVERY 6 MONTHS 02/07/2020 08/09/2019, 03/14/2019, 09/27/2018, Additional history exists CKD GFR USE SMARTSET 59542 03/11/202009/10, 08/09/2019, 07/20/2019, Additional history exists Yearly B-12 03/14/2020 03/14/2019, 05/16/2018 DIABETES-EYE EXAM 04/05/2020 04/05/2019, (Done elsewhere), 12/18/2009, Additional history exists DIABETES-URINE MICROALBUMIN EVERY 12 MONTHS 05/24/2020 05/24/2019, 02/26/2019, 12/23/2018, Additional history exists BREAST CANCER SCREENING DISCUSSION YEARLY AGES 40-75 07/10/2020 07/10/2019, 06/23/2018, 05/09/2015, Additional history exists CKD HGB USE SMARTSET 19408 09/10/202009/10, 07/20/2019, 02/26/2019, Additional history exists Pneumococcal [...] as of this encounter Visit Diagnoses Diagnosis Nocturnal hypoxemia- Primary Hypoxemia documented in this encounter Advance Directives Documents on File Type Date Recorded Patient Final Dressing Cutter Expl 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
--- OUTSIDE RECORDS SUMMARY | 2023-06-01 05:37 | External Medical Summary | Summary of Care ---
Author Name Unknown Organization [place] [address] Care Team Providers Care Parts Puller Name Role Phone Stevo Migue Ocampomelinda Primary Care Provider Reason for Visit * Reason Comments Follow Up vasculitis Encounter Details Date Type Department Care Team Description 09/27/2019 Office Visit Dermatology [facility] [address] [place] [address] Apple Kaminski MD [address] [place] [address] Leukocytoclastic vasculitis (HCC)* Allergies Active [...] 5 01/01/2019 Active Blood Glucose Monitoring Suppl (EveryclickUCH ULTRA 2) [...] 30 Tab 5 04/04/2019 Active Glucose Blood (Clay.ioTOUCH ULTRA BLUE) STRP Check sugars 3-4 times [...] ([facility]) Inject 0.5 mg under the skin once [...] 08/09/2019 Active Vitamin D, Ergocalciferol, 1.25 MG (33153 UT) CapsuleIndications:V itamin D deficiency Take 1 [...] CKD stage 3 05/14/2019 Other atherosclerosis of [place] arteries of extremities, left leg 02/26/2019 Lumbar [...] Progress Notes * Apple Kaminski MD - 09/27/2019 7:45 AM EST SUBJECTIVE: History of Present Illness: Stephanie Camp is a 64 year old female seen today for follow up of leukocytoclastic vasculitis. Last Office Visit: 09/10/2019. Last attempted treatments include clobetasol cream and colchicine 0.3mg daily resulting in much improvement. Treatment tolerated well. Pt states no new lesions developingand all lesions seem to be resolving. Labs: 09/10/19: ASO titer positive-237 Cryoglobulins positive-polyclonal type III Creatitine 2.0 09/10/19: CBC, BEL, RF, and hepatitis panel -negative U/A-WNL SPEP-no paraprotein. A. Skin, right forearm: Leukocytoclastic vasculitis (see comment) Comment: Hematoxylin and eosin stained sections reveal a superficial perivascular infiltrate with neutrophils, karyorrhexis and erythrocyte extravasation. The vasculitis involves primarily the post-capillary venules. The microscopic differential diagnosis includes leukocytoclastic vasculitis induced by a drug, connective tissue disease, cryoglobulin disease, and Henoch-Schoenlein purpura. Direct immunofluorescence may be helpful, especially in the case of Henoch-Schoenlein purpura. Clinical correlation is required REVIEW OF SYSTEMS: SKIN: No other new [...] daily x 1-2 weeks. 30 g 5 colchicine 0.6 MG Tablet Take 1/2 tab twice daily 30 Tab 0 levothyroxine (LEVOXYL) 200 MCG Tablet TAKE ONE TABLET BY MOUTH EVERY DAY AT LEAST 30 MINUTES BEFORE BREAKFAST OR OTHER MEDS 90 Tab 4 levothyroxine (LEVOXYL) 25 MCG Tablet TAKE ONE TABLET BY MOUTH IN THE MORNING AT LEAST 30 MINUTES PRIOR TO BREAKFAST OR OTHER MEDS 90 Tab 1 Vitamin D, Ergocalciferol, 1.25 MG (56264 UT) Capsule Take 1 Cap by mouth [...] 3 Pre-filled Pen Syringe Dosing Unit 12 traMADol (ULTRAM) 50 MG Tablet Take 1 Tab by mouth every 8 hours as needed for Pain, Severe. 90 Tab0 spironolactone (ALDACTONE) 25 MG Tablet Take 1 [...] 90 Tab 3 Blood Glucose Monitoring Suppl (Clay.ioTOUCH ULTRA 2) w/Device KIT Use to test BG values 1 Kit 0 gabapentin (NEURONTIN) 300 MG Capsule Take 1 Cap by mouth 3 times a day. 270 Cap 5 DULoxetine (CYMBALTA) 60 MG CPEP Take 1 Cap by mouth daily. Do not cut, crush or chew 90 Cap 5 ACCU-CHEK SOFTCLIX LANCETS MISC Test sugar 3-4 times a day. Ok to substitute Fastclix lancets, if needed. 400 Box Dosing Unit 3 Glucose Blood (ACCU-CHEK HARRIS PLUS) STRP Test sugar 3-4 times a day. 400 Strip 3 cyclobenzaprine (FLEXERIL) 10 MG Tablet TAKE ONE TABLET BY MOUTH AT BEDTIME NEEDED FOR MUSCLE SPASM 90 Tab 2 Nortriptyline HCl (PAMELOR) 50 MG Capsule Take 1 Cap by mouth at bedtime. 90 Cap 5 ONETOUCH DELICA LANCETS 33G MISC Check blood [...] type 2, not at goal ([facility]) ELLIE (generalized anxiety disorder) 09/13/[address] 08/19/2014 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[facility]) 08/22/2009 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[facility]) 06/12/2018 History of pulmonary embolus (PE) 07/16/2014 HTN, goal below 140/90 Impetigo 09/27/2018 Obesity, BMI not known Perforation of intestine ([facility]) 1996 COLON -- 1996 Pneumonia in aspergillosis(484.6) 09/14/2009 Spontaneous pneumothorax 09/14/2009 Statin intolerance 07/16/2014 Type 2 diabetes mellitus with hemoglobin A1c goal of 7.0%-8.0% ([facility]) 10/14/2014 ICD-10 update of inactive term Vaginal karmen 07/13/2018 OBJECTIVE: GEN: Healthy, alert, no distress, appears oriented, pleasant and cooperative. SKIN: Detailed exam of hair, face including lids and lips, neck, abdomen, bilateral upper ext. (arm, hand, fingers) and bilateral lower ext. (leg, foot, toes) completed and are normal except: 1. Few purpuric macules scattered on the bilateral lower legs, dorsal feet and few on the abdomen-all lesions are resolving. ASSESS MENT/PLAN: 1. leukocytoclastic vasculitis-based on labs likely due to recent strep infection causing a mixed cryoglobulinemia. Continue colchicine 0.3mg by mouth daily x 2 more weeks-dose adjusted from renal compromise. If flares off colchicine pt to call. She has follow-up with PCP in 1 month. Follow-up: as needed There were no barriers tolearning and no other pain was related to today's visit. The patient and/or person accompanying patient demonstrates understanding of the visit and treatment. Apple Kaminski MD Ref: SELF[[id number]] NO STRE[address] ADDRESS AVAILABLE None (office) None (fax) PCP: MIGUE WHITESIDE [address] [address] [phone] documented in this encounter Nursing Notes * ePtty Hicks LPN - 09/27/2019 7:29 AM EST Patient here for follow up of vasculitis on legs. Doing well. Feet are improving but still has someareas not completely healed. documented in this encounter Plan of Treatment Upcoming Encounters Date Type Specialty Care Team Description 10/03/2019 Office Visit Gynecology Obstetrics Yumiko Cast, [facility] [address] [place] [address] [phone] 10/09/2019 Home Visit [facility] Teddy Mccrary, RN [address] [address] [phone] 10/29/2019 Pharmacy Pharmacy [facility] [address] [address] 11/07/2019 Office Visit Family Medicine Migue Whiteside DO [address] [address] [phone] 11/22/2019 Office Visit Pulmonary Celsa Tafoya CRNP [address] [address] 02/26/2020 Office Visit Cardiology Rey Woodall MD [address] [place] [address] Health Maintenance Due Date Last Done Comments Zoster Vaccines (2 of 3) 02/05/2016 12/11/2015 PAP SMEAR-EVERY 3 YRS,AGES 21-65 05/11/2016 05/11/2013, 03/01/2008, 10/19/2006, Additional history exists CKD PHOS USE SMARTSET 23649 12/29/2018 04/0 01/2018, 08/26/2009, 08/25/2009, Additional history exists DIABETES-FOOT EXAM 01/02/2020 01/01/2019, 0 12/29/2017, 10/21/2016, Additional history exists DIABETES-HGBA1C EVERY 6 MONTHS 02/07/2020 08/09/2019, 03/14/2019, 09/27/2018, Additional history exists CKD GFR USE SMARTSET 50328 03/11/202009/10, 08/09/2019, 07/20/2019, Additional history exists Yearly B-12 03/14/2020 03/14/2019, 05/16/2018 DIABETES-EYE EXAM 04/05/2020 04/05/2019, (Done elsewhere), 12/18/2009, Additional history exists DIABETES-URINE MICROALBUMIN EVERY 12 MONTHS 05/24/2020 05/24/2019, 02/26/2019, 12/23/2018, Additional history exists BREAST CANCER SCREENING DISCUSSION YEARLY AGES 40-75 07/10/2020 07/10/2019, 06/23/2018, 05/09/2015, Additional history exists CKD HGB USE SMARTSET 70263 09/10/202009/10, 07/20/2019, 02/26/2019, Additional history exists Pneumococcal [...] File Type Date Recorded Patient Entry Level Buyer Expl 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
--- OUTSIDE RECORDS SUMMARY | 2023-06-01 05:37 | External Medical Summary | Summary of Care ---
Author Name Unknown Organization [place] [address] Care Team Providers Care Photographic Equipment Inspector Name Role Phone Kevin Whiteside DO Primary Care Provider Reason for Referral * Precert (Routine) Status Reason Specialty Diagnoses / Procedures Referred By Contact Referred To Contact Pending Review Precert Radiology Diagnoses Chronic hypoxemic respiratory failure (HCC) Chronic diastolic congestive heart failure (HCC) Ground glass opacity present on imaging of lung Pulmonary nodules History of tobacco use AVENDAÑO (dyspnea on exertion) Procedures CT CHEST WO CONTRAST Celsa [facility] CRNP [address] [address] Reason for Visit * Reason Comments Appointment Encounter Details Date Type Department Care Team Description 09/12/2019 Telephone Pulmonary Medicine, [facility] [address] [place] [address] Celsa Tafoya CRNP [address] [address] [phone] Appointment Allergies Active Allergy Reactions Severity Noted Date Comments Pollen 05/18/2019 Heparin 09/04/2009 Heparin Induced Thrombocytopenia Empagliflozin Other (Please comment) Medium 05/17/2018 3 yeast infections in 6 weeks after starting Morphine And Related 09/16/1997 Hallucinations Tetanus Toxoid Other (Please comment) 06/15/2011 Passed out documented as of this encounter (statuses as of 10/09/2019) Medications Medication Sig Dispensed Refills Start Date [...] 5 01/01/2019 Active Blood Glucose Monitoring Suppl (M.dot ULTRA 2) w/Device KIT Use to test BG values 1 Kit 0 01/26/2019 Active metoprolol tartrate (LOPRESSOR) 25 MG TabletIndications:H TN, goal below 130/80,Acute diastolic congestive heart failure (HCC),Body mass index (BMI) of 50.0 to 59.9 in adult ([facility]),Hypoxemia,ELISSA (obstructive sleep apnea),HTN, goal below 140/80 [...] 08/09/2019 Active Vitamin D, Ergocalciferol, 1.25 MG (44471 UT) CapsuleIndications: Vitamin D deficiency Take 1 [...] 200 units daily 3 Vial 12 03/14/2019 09/13/20 19 Discontinue d(Refill) clonazePAM (KLONOPIN) 0.5 MG TabletIndications:A nxiety state TAKE ONE TABLET BY MOUTH TWICE DAILY 60 Tab 1 07/16/2019 09/17/20 19 Discontinue d(Refill) mupirocin calcium (BACTROBAN) 2 % ointmentIndications :Nostril sore Apply topically to affected area 3 times a day for 14 days. Apply to affected area. 22 g 1 09/05/2019 09/19/20 19 Hospital, Clinic, or Other Facility Administered Medication Ordered Dose Route Frequency Start Date End Date Status levalbuterol (XOPENEX) inhalation solution 0.63 mgIndications:Wheezing 0.63 mg NEBULIZER Q4H PRN 09/12/2019 Ac tive documented as of this encounter (statuses as of 10/09/2019) Active Problems Problem Noted Date Benign hypertensive [...] 10/14/2014 Overview: ICD-10 update of inactive term Dand[place] filter in place 08/19/2014 History of pulmonary [...] as of this encounter (statuses as of 10/09/2019) Resolved Problems Problem Noted Date Resolved Date [...] as of this encounter (statuses as of 10/09/2019) Immunizations Name Administration Dates Next Due Pneumococcal [...] Telephone Encounter - Rema Barroso OSA - 10/09/2019 1:11 PM EST Swp, appt scheduled * Telephone Encounter - Rema Barroso OSA - 10/05/2019 12:[address] Thorax w/out, 1 month or less lmom * Telephone Encounter - Marlene Chou LPN - 10/04/2019 5:29 PM EST Spoke to pt. She is aware of results and agreeable to CT. States her work up revealed that the lesions she had were strep. Linda- Please reach out to pt to schedule CT * Telephone Encounter - Celsa Tafoya CRNP - 10/03/2019 3:22 PM EST Please notify patient of unread [facility]. * Telephone Encounter - Celsa Tafoya CRNP - 09/28/2019 8:43 AM EST 6mwt reviewed. New rx for oxygen written/updated. Recommend f/u CT of chest to reassess GGO/nodules vs pulmonary edema vs air trapping. PFT reviewed, normal. Vasculitis work up? * Telephone Encounter - Rema Barroso OSA - 09/13/2019 7:44 AM ASHLEY Perez at [facility] Radiology will push images through now. Thanks Linda * Telephone Encounter - Love Monge OSA - 09/12/2019 4:52 PM EST Linda - this was in checkout notes. Have CTA images pushed over from [facility] 06/06/18 Do you take care of this? Thanks! documented in this encounter Plan of Treatment Upcoming Encounters Date Type Specialty Care Team Description 10/18/2019 [facility] Visit [facility] Malissa Castro RN [address] [address] [phone] 10/23/2019 Imaging Radiology 10/29/2019 Pharmacy Pharmacy [facility] [address] [address] 11/07/2019 Office Visit Family Medicine Kevin Whiteside DO [address] [address] [phone] 11/22/2019 Office Visit Pulmonary Celsa Tafoya CRNP [address] [address] [phone] 02/26/2020 Office Visit Cardiology Rey Woodall MD [address] [address] [phone] Scheduled Orders Name Type Priority Associated Diagnoses Orde r Schedule CT CHEST WO CONTRAST Medical Imaging Routine Chronic hypoxemic respiratory failure (HCC) Chronic diastolic congestive heart failure (HCC) Ground glass opacity present on imaging of lung Pulmonary nodules History of tobacco use AVENDAÑO (dyspnea on exertion) Expected: 10/05/2019 (Approximate), Expires: 11/27/2019 Health Maintenance Due Date Last Done Comments Zoster Vaccines (2 of 3) 02/05/2016 12/11/2015 PAP SMEAR-EVERY 3 YRS,AGES 21-65 05/11/2016 05/11/2013, 03/01/2008, 10/19/2006, Additional history exists CKD PHOS USE SMARTSET 67799 12/29/2018 04/0 01/2018, 08/26/2009, 08/25/2009, Additional history exists DIABETES-FOOT EXAM 01/02/2020 01/01/2019, 0 12/29/2017, 10/21/2016, Additional history exists DIABETES-HGBA1C EVERY 6 MONTHS 02/07/2020 08/09/2019, 03/14/2019, 09/27/2018, Additional history exists CKD GFR USE SMARTSET 29431 03/11/202009/10, 08/09/2019, 07/20/2019, Additional history exists Yearly B-12 03/14/2020 03/14/2019, 05/16/2018 DIABETES-EYE EXAM 04/05/2020 04/05/2019, (Done elsewhere), 12/18/2009, Additional history exists DIABETES-URINE MICROALBUMIN EVERY 12 MONTHS 05/24/2020 05/24/2019, 02/26/2019, 12/23/2018, Additional history exists BREAST CANCER SCREENING DISCUSSION YEARLY AGES 40-75 07/10/2020 07/10/2019, 06/23/2018, 05/09/2015, Additional history exists CKD HGB USE SMARTSET 65969 09/10/202009/10, 07/20/2019, 02/26/2019, Additional history exists Pneumococcal [...] heart failure (HCC) Chronic diastolic heart failure Ground glass opacity present on imaging of lung Pulmonary nodules Other nonspecific abnormal finding of lung field History of tobacco use Personal history of tobacco use, presenting hazards to health AVENDAÑO (dyspnea on exertion) Other dyspnea and respiratory abnormality documented in this encounter Advance Directives Documents on File Type Date Recorded Patient Bindery Operator Expl 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
--- OUTSIDE RECORDS SUMMARY | 2023-06-01 05:37 | External Medical Summary | Summary of Care ---
Author Name Unknown Organization [facility] [place] [address] Care Team Providers Care Pulp Mill Operator Name Role Phone Kevin Whiteside DO Primary Care Provider Reason for Visit * Reason Comments Driller Operator New * Evaluate & Treat - Unlimited Visits (Within 10 days (routine)) Status Reason Specialty Diagnoses / Procedures Referred By Contact Referred To Contact Authorized Specialty Services Required Obstetrics/Gyne cology Diagnoses Pap smear for cervical cancer screening Kevin Whiteside DO [address] [facility] [place] [address] Encounter Details Date Type Department Care Team Description 10/03/2019 Office Visit [facility] Gynecology/Obstetric s [address] [facility] [place] [address] Yumiko Cast, [facility] [address] [facility] [place] [id number] Women's annual routine gynecological examination* Allergies Active Allergy Reactions Severity Noted Date Comments Pollen 05/18/2019 Heparin 09/04/2009 Heparin Induced Thrombocytopenia Empagliflozin Other (Please comment) Medium 05/17/2018 3 yeast infections in 6 weeks after starting Morphine And Related 09/16/1997 Hallucinations Tetanus Toxoid Other (Please comment) 06/15/2011 Passed out documented as of this encounter (statuses as of 10/10/2019) Medications Medication Sig Dispensed Refills Start Date [...] 5 01/01/2019 Active Blood Glucose Monitoring Suppl (Idea Device ULTRA 2) w/Device KIT Use to test BG values 1 Kit 0 01/26/2019 Active metoprolol tartrate (LOPRESSOR) 25 MG TabletIndications:HT N, goal below 130/80,Acute diastolic congestive heart failure (HCC),Body mass index (BMI) of 50.0 to 59.9 in adult ([facility]),Hypoxemia,ELISSA (obstructive sleep apnea),HTN, goal below [...] of 7.0%-8.0% ([facility]) Inject 0.5 mg under the [...] 08/09/2019 Active Vitamin D, Ergocalciferol, 1.25 MG (75430 UT) CapsuleIndications:V itamin D deficiency Take 1 [...] as of this encounter (statuses as of 10/10/2019) Active Problems Problem Noted Date 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, NYHA class 1 and CKD stage 3 05/14/2019 Other atherosclerosis of [place] arteries of extremities, left leg 02/26/2019 Lumbar [...] 10/14/2014 Overview: ICD-10 update of inactive term [place] filter in place 08/19/2014 History of [...] as of this encounter (statuses as of 10/10/2019) Resolved Problems Problem Noted Date Resolved Date [...] as of this encounter (statuses as of 10/10/2019) Immunizations Name Administration Dates Next Due Pneumococcal [...] Sign Reading Time Taken Comments Blood Pressure 120/74 10/03/2019 3:03 PM EST Pulse - - Temperature - - Respiratory Rate - - Oxygen Saturation - - Inhaled Oxygen Concentration - - Weight 149.7 kg (330 lb) 10/03/2019 3:03 PM EST Height 163.5 cm (5' 4.37") 10/03/2019 3:03 PM ES T Body Mass Index 56 10/03/2019 3:03 PM EST documented in this encounter Progress Notes * Yumiko Cast, JUAN LUIS - 10/03/2019 3:37 PM EST CC: Annual Exam HPI: The patient is a 64 year old postmenopausal female here for an annual exam. She has no complaints. She denies vaginal bleeding, vaginal dryness, or hot flashes. She denies any urinary incontinence. She is not sexually active. She denies note any changes in her GI habits. Her last colonoscopy was 2015. She has been doing her BSE on a monthly basis. Her last Mammogram was Jun 2019. She denies hx of abnormal pap smears. Last pap 2012. Past Medical History: Diagnosis Date ELSIE (acute kidney injury) ([facility]) 06/12/2018 Allergic rhinitis due to other allergen Backache Diverticulosis of colon 01/28/06 DM type 2, not at goal ([facility]) ELLIE (generalized anxiety disorder) 09/13/2009 Goiter [place] filter in place 08/19/2014 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HCC) 08/22/2009 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[facility]) 06/12/2018 History of pulmonary embolus (PE) 07/16/2014 HTN, goal below 140/90 Impetigo 09/27/2018 Obesity, BMI not known Perforation of intestine ([facility]) 1996 COLON -- 1996 Pneumonia [...] TRACHEOSTOMY PLANNED performed by DANNY HOLDER at [facility] KNEE ARTHROSCOPY/DEBRIDEMENT 07/[address] PERMANENT GASTROSTOMY TUBE 09/06/09 GASTROSTOMY WITH CONSTUCTION GASTRIC TUBE performed by AMADOU NUNEZ at [facility] REMOVAL OF THYROID GLAND 06/15/2011 THYROIDECTOMY INCLUDING SUBSTERNAL THYROID CERVICAL APPROACH performed by DANNY HOLDER at [facility] REMOVE GALLBLADDER 09/06/09 CHOLECYSTECTOMY performed by AMADOU NUNEZ at [facility] REPAIR RECURRENT INCISIONAL HERNIA 1998 REVISION OF COLOSTOMY, SIMPLE 1998 SUTURE, LARGE INTESTINE W/COLOSTOMY 1996 perforation R colon with colostomy VENA CAVA FILTER/LIGATION/CLIP 08/19/09 [place] filter placement through the right femoral 08/19/[address] Lerma at [facility] OB History Para Term AB Living 0 SAB TAB Ectopic Multiple Live Births Family Hx: Family History Problem Relation Age of Onset Cancer Father lung - age 74 (smoker) Cancer Mother liver - age 45 Heart Disorder Brother age 45 - possible tumor Diabetes Grandmother (Paternal) Cancer Grandfather (Paternal) bone ca - in 70's Social History Tobacco Use Smoking status: Former Smoker Packs/day: 1.00 Years: 15.00 Pack years: 15.00 Last attempt to quit: 08/26/1997 Years since quittin.1 Smokeless tobacco: Never Used Substance Use Topics Alcohol use: Yes Comment: rare Medications: Current Outpatient Medications Medication Sig Dispense Refill clonazePAM (KLONOPIN) 0.5 MG Tablet TAKE ONE TABLET BY MOUTH TWICE DAILY 60 Tab 0 insulin aspart (INSULIN ASPART) 100 UNIT/ML injection USE IN INSULIN PUMP UP TO 200 UNITS PER DAY 30 mL 7 colchicine 0.6 MG Tablet Take 1/2 tab twice daily 30 Tab 0 levothyroxine (LEVOXYL) 200 MCG Tablet TAKE ONE TABLET BY MOUTH EVERY DAY AT LEAST 30 MINUTES BEFORE BREAKFAST OR OTHER MEDS 90 Tab 4 levothyroxine (LEVOXYL) 25 MCG Tablet TAKE ONE TABLET BY MOUTH IN THE MORNING AT LEAST 30 MINUTES PRIOR TO BREAKFAST OR OTHER MEDS 90 Tab 1 DULoxetine (CYMBALTA) 30 MG CPEP Take 1 Cap by mouth daily. Take along with the 60mg dose for totally of 90mg daily. Do not cut, crush or chew 90 Cap 5 Magnesium Oxide 400 (241.3 mg) Tablet Take 400 mg by mouth daily. 90 Tab 3 furosemide (LASIX) 40 MG Tablet Take 40 mg by mouth daily. 180 Tab 3 traZODone (DESYREL) 50 MG Tablet Take 1 Tab by mouth at bedtime. 30 Tab 5 rOPINIRole (REQUIP) 2 MG Tablet Take 1 Tab by mouth at bedtime. 90 Tab 3 metoprolol tartrate (LOPRESSOR) 25 MG Tablet Take 0.5 Tabs by mouth 2 times a day. 90 Tab 3 gabapentin (NEURONTIN) 300 MG Capsule Take 1 Cap by mouth 3 times a day. 270 Cap 5 DULoxetine (CYMBALTA) 60 MG CPEP Take 1 Cap by mouth daily. Do not cut, crush or chew 90 Cap 5 Nortriptyline HCl (PAMELOR) 50 MG Capsule Take 1 Cap by mouth at bedtime. 90 Cap 5 PRILOSEC 20 MG PO CPDR one tablet daily clobetasol propionate (TEMOVATE) 0.05 % cream apply to rash on the legs and arm twice daily x 1-2 weeks. 30 g 5 Vitamin D, Ergocalciferol, 1.25 MG (99576 UT) Capsule Take 1 Cap by mouth every 4 weeks. 13 Cap 0 Semaglutide,0.25 or 0.5MG/DOS, (OZEMPIC, 0.25 OR 0.5 MG/DOSE,) 2 MG/1.5ML SOPN Inject 0.5 mg under the skin once a week. 3 Pre-filled Pen Syringe Dosing Unit 12 traMADol (ULTRAM) 50 MG Tablet Take 1 Tab by mouth every 8 hours as needed for Pain, Severe. 90 Tab0 spironolactone (ALDACTONE) 25 MG Tablet Take 1 Tab by mouth daily. 90 Tab 3 oxygen GAS 2 L/min(Oxygen). 2 LPM bled through CPAP 11 cwp during all periods of sleep. Glucose Blood (BuddyTVUCH ULTRA BLUE) STRP Check sugars 3-4 times daily 400 Strip 2 Insulin Pen Needle (BD PEN NEEDLE SHORT [...] times a day as needed for Constipation. Allergies: Review of patient's allergies indicates: Allergen Reactions Jardiance [Empagliflozin] Other (Please comment) 3 yeast infections in 6 weeks after starting Hay Fever [Pollen] Heparin Heparin Induced Thrombocytopenia Morphine And Related Hallucinations Tetanus Toxoid Other (Please comment) Passed out ROS: Constitutional: No fatigue, no fever/chills, no night sweats HEENT: No headaches Breasts: No new breast lumps or masses, no pain or discomfort, no nipple discharge Pulmonary: No cough Cardiovascular: No chest pain, no shortness of breath Gastrointestinal: no change in bowel habits Urinary: no pelvic pain/discomfort, no dysuria, no nocturia, no urgency or frequency Genital: denies vaginal bleeding, no vaginal discharge, pruritus or odor, no lesions or irritation Psych: No anxiety, no depression Physical Exam BP 120/74 | Ht 5' 4.37" (1.635m) | Wt 330 lbs (149.687kg) | BMI 56 kg/m | BSA 2.61 m | LMP 03/11/2003 General: awake, alert, and oriented x 3, NAD Neck: supple without adenopathy, thyroid surgically removed due to benign reasons Cardiac: regular rate and rhythm Lungs: clear to auscultation Abdomen: soft, non-tender, protuberant Extremities: no cyanosis or edema Neuro: no focal motor/sensory deficits, gait normal Breasts: no nipple retraction or dimpling, no nipple discharge or bleeding, no axillary or supraclavicular adenopathy, normal to palpation without dominant masses Pelvic: external genitalia and vagina anatomy within normal limits, + vaginal atrophy, no vulvar lesions, no significant vaginal discharge, cervix normal in appearance without lesions or purulent discharge, uterus unable to palpate due to body habitus, adnexa unable to palpate due to body habitus, no abnormal pelvic masses, Pap obtained with cervical broom Assessment/Plan: Women's annual routine gynecological examination (Primary) - PAP SCREEN Follow Up: Return in about 1 year (around 10/03/2020) for Annual. Call the office with any problems, questions, concerns Yumiko Cast CNM documented in this encounter Nursing Notes * Carmen Mart LPN - 10/03/2019 3:01 PM EST Patient identified by name and date of . Patient here for yearly exam. Complaints: Pt new to us, has never seen a celery wrapper. Has been having frequent yeast infections and Uti's. Occasional odor. Last pap: 2012 Last Mammogram: 2019 Last Dexa: none Last Colonoscopy: 2016 Have you completed the patient surveys? yes Type of Contraception: not sa, post Pt here for chlamydia screen. no Have you heard about the Gardasil Vaccine? no Would you be interested in discussing this with your provider? no Does the patient have an advance directed? No, Advance Directive brochure given to patient. My [employer] is a way you can talk to your provider online through e-mail. May I activate it for you? ALREADY ACTIVE Do you need any refills while you are here? no Carmen Mrat LPN 3:02 PM 10/03/2019 documented in this encounter Plan of Treatment Upcoming Encounters Date Type Specialty Care Team Description 10/18/2019 Home Visit [facility] Malissa Castro RN [address] [place] [address] 10/23/2019 Imaging Radiology 10/29/2019 Pharmacy Pharmacy Danuta Ordaz [address] [place] [address] 11/07/2019 Office Visit Family Medicine Kevin Whiteside DO [address] [place] [address] [phone] 11/22/2019 Office Visit Pulmonary Celsa Tafoya CRNP [address] [place] [address] [phone] 02/26/2020 Office Visit Cardiology Rey Woodall MD [address] [place] [address] [phone] Health Maintenance Due Date Last Done Comments Zoster Vaccines (2 of 3) 02/05/2016 12/11/2015 CKD PHOS USE SMARTSET 76317 12/29/2018 04/0 01/2018, 08/26/2009, 08/25/2009, Additional history exists DIABETES-FOOT EXAM 01/02/2020 01/01/2019, 0 12/29/2017, 10/21/2016, Additional history exists DIABETES-HGBA1C EVERY 6 MONTHS 02/07/2020 08/09/2019, 03/14/2019, 09/27/2018, Additional history exists CKD GFR USE SMARTSET 10583 03/11/202009/10, 08/09/2019, 07/20/2019, Additional history exists Yearly B-12 03/14/2020 03/14/2019, 05/16/2018 DIABETES-EYE EXAM 04/05/2020 04/05/2019, (Done elsewhere), 12/18/2009, Additional history exists DIABETES-URINE MICROALBUMIN EVERY 12 MONTHS 05/24/2020 05/24/2019, 02/26/2019, 12/23/2018, Additional history exists BREAST CANCER SCREENING DISCUSSION YEARLY AGES 40-75 07/10/2020 07/10/2019, 06/23/2018, 05/09/2015, Additional history exists CKD HGB USE SMARTSET 89180 09/10/202009/10, 07/20/2019, 02/26/2019, Additional history exists PAP [...] Procedure Name Priority Date/Time Associated Diagnosis Comments PAP SCREEN Routine 10/03/2019 4:44 PM EST Women's annual routine gynecological examination documented in this encounter Results * PAP SCREEN (10/03/2019 4:44 PM EST) Specimen Performing Organization Address City/State/Zipcod e Phone Number [email or web address] documented in this encounter Visit Diagnoses Diagnosis Women's annual routine gynecological examination- Primary documented in this encounter Advance Directives Documents on File Type Date Recorded Patient Lead Janitor Expl 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
--- OUTSIDE RECORDS SUMMARY | 2023-06-01 05:37 | External Medical Summary | Summary of Care ---
Author Name Unknown Organization [place] [address] Care Team Providers Care Steam Plant Operator Name Role Phone Kevin Whiteside DO Primary Care Provider Reason for Visit * Reason Comments Operator Automated Process New * Evaluate & Treat - Unlimited Visits (Within 10 days (routine)) Status Reason Specialty Diagnoses / Procedures Referred By Contact Referred To Contact Authorized Specialty Services Required Obstetrics/Gyne cology Diagnoses Pap smear for cervical cancer screening Kevin Whiteside DO [address] [facility] [place] [address] Encounter Details Date Type Department Care Team Description 10/03/2019 Office Visit [facility] Gynecology/Obstetric s [address] [facility] [place] [address] Yumiko Cast, [facility] [address] [facility] [place] [id number] Women's annual routine gynecological examination* Allergies Active [...] 5 01/01/2019 Active Blood Glucose Monitoring Suppl (Seal Software ULTRA 2) w/Device KIT Use to test [...] of 7.0%-8.0% ([facility]) Inject 0.5 mg under the [...] 08/09/2019 Active Vitamin D, Ergocalciferol, 1.25 MG (90303 UT) CapsuleIndications:V itamin D deficiency Take 1 [...] CKD stage 3 05/14/2019 Other atherosclerosis of [place] arteries of extremities, left leg 02/26/2019 Lumbar [...] 10/14/2014 Overview: ICD-10 update of inactive term [place] filter in place 08/19/2014 History of pulmonary [...] HOSPITAL) ELLIE (generalized anxiety disorder) 09/13/2009 Goiter [place] filter in place 08/19/2014 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HCC) 08/22/2009 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[facility]) [...] normal, repeat 10 yrs/[facility] COLONOSCOPY, GI REFERRAL OP 01/28/06 diverticulosis--repeat 10 years INCISION OF [place], PLANNED 06/03/2011 TRACHEOSTOMY PLANNED performed by DANNY HOLDER at [facility] KNEE ARTHROSCOPY/DEBRIDEMENT 07/[address] L knee cartilage PLACE PERMANENT GASTROSTOMY TUBE 09/06/09 GASTROSTOMY WITH CONSTUCTION GASTRIC TUBE performed by AMADOU NUNEZ at [facility] REMOVAL OF THYROID GLAND 06/15/2011 THYROIDECTOMY INCLUDING SUBSTERNAL THYROID CERVICAL APPROACH performed by DANNY HOLDER at [facility] REMOVE GALLBLADDER 09/06/09 CHOLECYSTECTOMY performed by AMADOU NUNEZ at [facility] REPAIR RECURRENT INCISIONAL HERNIA 1998 REVISION OF COLOSTOMY, SIMPLE 1998 SUTURE, LARGE INTESTINE W/COLOSTOMY 1996 perforation R colon with colostomy VENA CAVA FILTER/LIGATION/CLIP 08/19/09 [place] filter placement through the right femoral 08/19/[address] Lerma at [facility] OB History Para Term AB Living 0 [...] g 5 Vitamin D, Ergocalciferol, 1.25 MG (66732 UT) Capsule Take 1 Cap by mouth [...] during all periods of sleep. Glucose Blood (Origen TherapeuticsUCH ULTRA BLUE) STRP Check sugars 3-4 times [...] new to us, has never seen a photo finish photographer. Has been having frequent yeast infections and [...] Advance Directive brochure given to patient. My [employer] is a way you can talk to your provider online through e-mail. May I activate it for you? ALREADY ACTIVE Do you need any refills while you are here? no Carmen Mart LPN 3:02 PM 10/03/2019 documented in this encounter Plan of Treatment Upcoming Encounters Date Type Specialty Care Team Description 10/18/2019 Home Visit [facility] Malissa Castro RN [address] [place] [address] 10/23/2019 Imaging Radiology 10/29/2019 Pharmacy Pharmacy Danuta Ordaz [address] [place] [address] 11/07/2019 Office Visit Family Medicine Kevin Whiteside DO [address] [place] [address] [phone] 11/22/2019 Office Visit Pulmonary Celsa Tafoya CRNP [address] [place] [address] [phone] 02/26/2020 Office Visit Cardiology Rey Woodlal MD [address] [place] [address] [phone] Health Maintenance Due Date Last Done Comments Zoster Vaccines (2 of 3) 02/05/2016 12/11/2015 CKD PHOS USE SMARTSET 53239 12/29/2018 04/0 01/2018, 08/26/2009, 08/25/2009, Additional history exists DIABETES-FOOT EXAM 01/02/2020 01/01/2019, 0 12/29/2017, 10/21/2016, Additional history exists DIABETES-HGBA1C EVERY 6 MONTHS 02/07/2020 08/09/2019, 03/14/2019, 09/27/2018, Additional history exists CKD GFR USE SMARTSET 54677 03/11/202009/10, 08/09/2019, 07/20/2019, Additional history exists Yearly B-12 03/14/2020 03/14/2019, 05/16/2018 DIABETES-EYE EXAM 04/05/2020 04/05/2019, (Done elsewhere), 12/18/2009, Additional history exists DIABETES-URINE MICROALBUMIN EVERY 12 MONTHS 05/24/2020 05/24/2019, 02/26/2019, 12/23/2018, Additional history exists BREAST CANCER SCREENING DISCUSSION YEARLY AGES 40-75 07/10/2020 07/10/2019, 06/23/2018, 05/09/2015, Additional history exists CKD HGB USE SMARTSET 20462 09/10/202009/10, 07/20/2019, 02/26/2019, Additional history exists PAP [...] File Type Date Recorded Patient Entry Level Recruiter Expl 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
--- OUTSIDE RECORDS SUMMARY | 2023-06-01 05:37 | External Medical Summary | Summary of Care ---
Author Name Unknown Organization [place] [address] Care Team Providers Care Trades Helper Name Role Phone Kevin Whiteside DO Primary Care Provider Reason for Visit * Reason Comments Nitrating Acid Mixer New * Evaluate & Treat - Unlimited Visits (Within 10 days (routine)) Status Reason Specialty Diagnoses / Procedures Referred By Contact Referred To Contact Authorized Specialty Services Required Obstetrics/Gyne cology Diagnoses Pap smear for cervical cancer screening Kevin Whiteside DO [address] [facility] [place] [address] Encounter Details Date Type Department Care Team Description 10/03/2019 Office Visit [facility] Gynecology/Obstetric s 132 [facility] [place] [address] Yumiko Cast, [facility] [address] [facility] [place] [id number] Women's annual routine gynecological examination* Allergies Active Allergy Reactions Severity Noted Date Comments Pollen 05/18/2019 Heparin 09/04/2009 Heparin Induced Thrombocytopenia Empagliflozin Other (Please comment) Medium 05/17/2018 3 yeast infections in 6 weeks after starting Morphine And Related 09/16/1997 Hallucinations Tetanus Toxoid Other (Please comment) 06/15/2011 Passed out documented as of this encounter (statuses as of 10/03/2019) Medications Medication Sig Dispensed Refills Start Date [...] Each 5 08/01/2018 Active Glucose Blood (ACCU-CHEK AHRRIS PLUS) STRP Test sugar 3-4 times a [...] 5 01/01/2019 Active Blood Glucose Monitoring Suppl (Refinery29 ULTRA 2) w/Device KIT Use to test BG values 1 Kit 0 01/26/2019 Active metoprolol tartrate (LOPRESSOR) 25 MG TabletIndications:HT N, goal below 130/80,Acute diastolic congestive heart failure (HCC),Body mass index (BMI) of 50.0 to 59.9 in adult ([facility]),Hypoxemia,ELISSA (obstructive sleep apnea),HTN, goal below 140/80 Take [...] ([facility]) Inject 0.5 mg under the skin once [...] 08/09/2019 Active Vitamin D, Ergocalciferol, 1.25 MG (12548 UT) CapsuleIndications:V itamin D deficiency Take 1 [...] as of this encounter (statuses as of 10/03/2019) Active Problems Problem Noted Date 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, NYHA class 1 and CKD stage 3 05/14/2019 Other atherosclerosis of [place] arteries of extremities, left leg 02/26/2019 Lumbar [...] as of this encounter (statuses as of 10/03/2019) Resolved Problems Problem Noted Date Resolved Date [...] as of this encounter (statuses as of 10/03/2019) Immunizations Name Administration Dates Next Due Pneumococcal [...] ELSIE (acute kidney injury) ([facility]) 06/12/2018 Allergic rhinitis due to other allergen Backache Diverticulosis of colon 01/28/06 DM type 2, not at goal ([facility]) ELLIE (generalized anxiety disorder) 09/13/[address] in [address] 08/19/2014 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HCC) 08/22/2009 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[facility]) 06/12/2018 History of pulmonary embolus (PE) 07/16/2014 HTN, goal below 140/90 Impetigo 09/27/2018 Obesity, BMI not known Perforation of intestine ([facility]) 1996 COLON -- 1996 Pneumonia in aspergillosis(484.6) 09/14/2009 Spontaneous pneumothorax 09/14/2009 Statin intolerance 07/16/2014 Type 2 diabetes mellitus with hemoglobin A1c goal of 7.0%-8.0% (HCC) 10/14/2014 ICD-10 update of inactive term Vaginal karmen 07/13/2018 Past Surgical History: Procedure Laterality Date ARTHROPLASTY KNEE TOTAL Right 07/24/14 R COLONOSCOPY, DIAGNOSTIC (RECTUM) 02/18/2016 normal, repeat 10 yrs/[facility] COLONOSCOPY, GI REFERRAL OP 01/28/06 diverticulosis--repeat 10 years INCISION OF [place], PLANNED 06/03/2011 TRACHEOSTOMY PLANNED performed by DANNY HOLDER at [facility] [address] KNEE ARTHROSCOPY/DEBRIDEMENT 07/[address] PERMANENT GASTROSTOMY TUBE 09/06/09 GASTROSTOMY WITH CONSTUCTION GASTRIC TUBE performed by AMADOU NUNEZ at [facility] [address] REMOVAL OF THYROID GLAND 06/15/2011 THYROIDECTOMY INCLUDING SUBSTERNAL THYROID CERVICAL APPROACH performed by DANNY HOLDER at [facility] [address] REMOVE GALLBLADDER 09/06/09 CHOLECYSTECTOMY performed by AMADOU NUNEZ at [facility] [address] REPAIR RECURRENT INCISIONAL HERNIA 1998 REVISION OF COLOSTOMY, SIMPLE 1998 SUTURE, LARGE INTESTINE W/COLOSTOMY 1996 perforation R colon with colostomy VENA CAVA FILTER/LIGATION/CLIP 08/19/09 Frank filter placement through the right femoral 08/19/[address] Lerma at [facility] OB History Para Term AB Living 0 [...] g 5 Vitamin D, Ergocalciferol, 1.25 MG (10734 UT) Capsule Take 1 Cap by mouth [...] during all periods of sleep. Glucose Blood (XceiveUCH ULTRA BLUE) STRP Check sugars 3-4 times [...] new to us, has never seen a legal process specialist. Has been having frequent yeast infections and [...] Advance Directive brochure given to patient. [facility] is a way you can talk to [...] Malissa Castro RN [address] [place] [address] 10/29/2019 Pharmacy Pharmacy [facility] [place] [address] [place] [address] 11/07/2019 Office Visit Family Medicine Kevin Whiteside DO [address] [place] [address] [phone] 11/22/2019 Office Visit Pulmonary Celsa Tafoya CRNP [address] [place] [address] [phone] 02/26/2020 Office Visit Cardiology Rey Woodall MD [address] [place] [address] [phone] Scheduled Orders Name Type Priority Associated Diagnoses Orde r Schedule PAP SCREEN Pathology Routine Women's annual routine gynecological examination Ordered: 10/03/2019 Health Maintenance Due Date Last Done Comments Zoster Vaccines (2 of 3) 02/05/2016 12/11/2015 PAP SMEAR-EVERY 3 YRS,AGES 21-65 05/11/2016 05/11/2013, 03/01/2008, 10/19/2006, Additional history exists CKD PHOS USE SMARTSET 53823 12/29/201801/2018, 08/26/2009, 08/25/2009, Additional history exists DIABETES-FOOT EXAM 01/02/2020 01/01/2019, 0 12/29/2017, 10/21/2016, Additional history exists DIABETES-HGBA1C EVERY 6 MONTHS 02/07/2020 08/09/2019, 03/14/2019, 09/27/2018, Additional history exists CKD GFR USE SMARTSET 66970 03/11/202009/10, 08/09/2019, 07/20/2019, Additional history exists Yearly B-12 03/14/2020 03/14/2019, 05/16/2018 DIABETES-EYE EXAM 04/05/2020 04/05/2019, (Done elsewhere), 12/18/2009, Additional history exists DIABETES-URINE MICROALBUMIN EVERY 12 MONTHS 05/24/2020 05/24/2019, 02/26/2019, 12/23/2018, Additional history exists BREAST CANCER SCREENING DISCUSSION YEARLY AGES 40-75 07/10/2020 07/10/2019, 06/23/2018, 05/09/2015, Additional history exists CKD HGB USE SMARTSET 27325 09/10/202009/10, 07/20/2019, 02/26/2019, Additional history exists Pneumococcal [...] as of this encounter Visit Diagnoses Diagnosis Women's annual routine gynecological examination- Primary documented in this encounter Advance Directives Documents on File Type Date Recorded Patient Case Planner Expl anation Advanced Directive 08/22/2009 12:00 AM [...]
--- OUTSIDE RECORDS SUMMARY | 2023-06-01 05:38 | External Medical Summary | Summary of Care ---
Author Name Unknown Organization [place] [address] Care Team Providers Care Service Unit Operator Oil Well Name Role Phone Kevin Whiteside DO Primary Care Provider Reason for Visit * Reason Comments Appointment lmom 09/17 Encounter Details Date Type Department Care Team Description 09/13/2019 Telephone Pulmonary Medicine, [facility] 132 [facility] [place] [address] Celsa Tafoya CRNP 132 [place] [address] Appointment (lmom 09/17) Allergies Active Allergy [...] (BMI) of 50.0 to 59.9 in adult ([facility]),Hypoxemia,ELISSA (obstructive sleep apnea),HTN, goal below 140/80 Take [...] ([facility]) Inject 0.5 mg under the skin once [...] 08/09/2019 Active Vitamin D, Ergocalciferol, 1.25 MG (18793 UT) CapsuleIndications: Vitamin D deficiency Take 1 [...] CKD stage 3 05/14/2019 Other atherosclerosis of [place] arteries of extremities, left leg 02/26/2019 Lumbar [...] Barroso OSA - 09/17/2019 2:18 PM EST lmom * Telephone Encounter - Rema Barroso OSA - 09/13/2019 7:47 AM EST Return in about 3 months (around 12/12/2019) for pulm/sleep return 60 mins. Celsa / pulm documented in this encounter Plan of Treatment Upcoming Encounters Date Type Specialty Care Team Description 09/27/2019 Office Visit Dermatology Apple Kaminski MD [address] [place] [address] [phone] 10/03/2019 Office Visit Gynecology Obstetrics Yumiko Cast [address] [place] [address] [phone] 10/09/2019 [facility] Visit [facility] Teddy Mccrary RN [address] [place] [address] [phone] 10/29/2019 Pharmacy Pharmacy [facility] E[place]ramie [address] [place] [address] 11/07/2019 Office Visit Family Medicine Kevin Whiteside DO [address] [place] [address] [phone] 02/26/2020 Office Visit Cardiology Rey Woodall MD [address] [place] [address] [phone] Health Maintenance Due Date Last Done Comments Zoster Vaccines (2 of 3) 02/05/2016 12/11/2015 PAP SMEAR-EVERY 3 YRS,AGES 21-65 05/11/2016 05/11/2013, 03/01/2008, 10/19/2006, Additional history exists CKD PHOS USE SMARTSET 47957 12/29/2018 04/0 01/2018, 08/26/2009, 08/25/2009, Additional history exists DIABETES-FOOT EXAM 01/02/2020 01/01/2019, 0 12/29/2017, 10/21/2016, Additional history exists DIABETES-HGBA1C EVERY 6 MONTHS 02/07/2020 08/09/2019, 03/14/2019, 09/27/2018, Additional history exists CKD GFR USE SMARTSET 71967 03/11/202009/10, 08/09/2019, 07/20/2019, Additional history exists Yearly B-12 03/14/2020 03/14/2019, 05/16/2018 DIABETES-EYE EXAM 04/05/2020 04/05/2019, (Done elsewhere), 12/18/2009, Additional history exists DIABETES-URINE MICROALBUMIN EVERY 12 MONTHS 05/24/2020 05/24/2019, 02/26/2019, 12/23/2018, Additional history exists BREAST CANCER SCREENING DISCUSSION YEARLY AGES 40-75 07/10/2020 07/10/2019, 06/23/2018, 05/09/2015, Additional history exists CKD HGB USE SMARTSET 09879 09/10/202009/10, 07/20/2019, 02/26/2019, Additional history exists Pneumococcal [...] Documents on File Type Date Recorded Patient Steel Layer Expl 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
--- OUTSIDE RECORDS SUMMARY | 2023-06-01 05:38 | External Medical Summary | Summary of Care ---
Author Name Unknown Organization [place] [address] Care Team Providers Care Hyperbaric Technologist Name Role Phone Stevo Kevin Ocampomelinda Primary Care Provider Encounter Details Date Type Department Care Team Description 09/13/2019 Orders Only Pulmonary Medicine, [facility] [place] [address] Tahmina Samuel CRNP 132 [facility] [place] [id number] AVENDAÑO (dyspnea on exertion)*; Wheezing Allergies Active Allergy Reactions Severity Noted Date Comments Pollen 05/18/2019 Heparin 09/04/2009 Heparin Induced Thrombocytopenia Empagliflozin Other (Please comment) Medium 05/17/2018 3 yeast infections in 6 weeks after starting Morphine And Related 09/16/1997 Hallucinations Tetanus Toxoid Other (Please comment) 06/15/2011 Passed out documented as of this encounter (statuses as of 09/13/2019) Medications Medication Sig Dispensed Refills Start Date [...] (BMI) of 50.0 to 59.9 in adult ([facility]),Hypoxemia,ELISSA (obstructive sleep apnea),HTN, goal below 140/80 [...] 3 07/10/2019 Active clonazePAM (KLONOPIN) 0.5 MG TabletIndications:An xiety state TAKE ONE TABLET BY MOUTH TWICE DAILY 60 Tab 1 07/16/2019 Active Semaglutide,0.25 or 0.5MG/DOS, (OZEMPIC, 0.25 OR 0.5 MG/DOSE,) 2 MG/1.5ML SOPNIndications:Type 2 diabetes mellitus with hemoglobin A1c goal of 7.0%-8.0% ([facility]) Inject 0.5 mg under the skin [...] 08/09/2019 Active Vitamin D, Ergocalciferol, 1.25 MG (35355 UT) CapsuleIndications:V itamin D deficiency Take 1 [...] 09/02/2019 Active mupirocin calcium (BACTROBAN) 2 % ointmentIndications: Nostril sore Apply topically to affected area 3 times a day for 14 days. Apply to affected area. 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, NYHA class 1 and CKD stage 3 05/14/2019 Other atherosclerosis of [place] arteries of extremities, left leg 02/26/2019 Lumbar [...] 10/14/2014 Overview: ICD-10 update of inactive term [place] filter in place 08/19/2014 History of pulmonary [...] as of this encounter (statuses as of 09/13/2019) Resolved Problems Problem Noted Date Resolved Date [...] as of this encounter (statuses as of 09/13/2019) Immunizations Name Administration Dates Next Due Pneumococcal [...] Encounters Date Type Specialty Care Team Description 09/14/2019 PulmDiagnostic Pulmonary Function [place] [address] [place] [address] [phone] 09/27/2019 Office Visit Dermatology Apple Kaminski MD [address] [place] [address], [place] [address] [phone] 10/03/2019 Office Visit Gynecology Obstetrics Yumiko Cast [address] [place] [address] [phone] 10/09/2019 Home Visit [facility] Teddy Mccrary RN [address] [place] [address] [phone] 10/29/2019 Pharmacy Pharmacy [facility] [address] [place] [address] 11/07/2019 Office Visit Family Medicine Kevin Whiteside DO [address] [place] [address] [phone] 02/26/2020 Office Visit Cardiology Rey Woodall MD [address] [place] [address] [phone] Health Maintenance Due Date Last Done Comments Zoster Vaccines (2 of 3) 02/05/2016 12/11/2015 PAP SMEAR-EVERY 3 YRS,AGES 21-65 05/11/2016 05/11/2013, 03/01/2008, 10/19/2006, Additional history exists CKD PHOS USE SMARTSET 42675 12/29/2018 04/0 01/2018, 08/26/2009, 08/25/2009, Additional history exists DIABETES-FOOT EXAM 01/02/2020 01/01/2019, 0 12/29/2017, 10/21/2016, Additional history exists DIABETES-HGBA1C EVERY 6 MONTHS 02/07/2020 08/09/2019, 03/14/2019, 09/27/2018, Additional history exists CKD GFR USE SMARTSET 11425 03/11/202009/10, 08/09/2019, 07/20/2019, Additional history exists Yearly B-12 03/14/2020 03/14/2019, 05/16/2018 DIABETES-EYE EXAM 04/05/2020 04/05/2019, (Done elsewhere), 12/18/2009, Additional history exists DIABETES-URINE MICROALBUMIN EVERY 12 MONTHS 05/24/2020 05/24/2019, 02/26/2019, 12/23/2018, Additional history exists BREAST CANCER SCREENING DISCUSSION YEARLY AGES 40-75 07/10/2020 07/10/2019, 06/23/2018, 05/09/2015, Additional history exists CKD HGB USE SMARTSET 21478 09/10/202009/10, 07/20/2019, 02/26/2019, Additional history exists Pneumococcal [...] as of this encounter Visit Diagnoses Diagnosis AVENDAÑO (dyspnea on exertion)- Primary Other dyspnea and respiratory abnormality Wheezing documented in this encounter Advance Directives Documents on File Type Date Recorded Patient Cellar Pumper Expl anation Advanced Directive 08/22/2009 12:00 AM [...]
--- OUTSIDE RECORDS SUMMARY | 2023-06-01 05:38 | External Medical Summary | Summary of Care ---
Author Name Unknown Organization [facility] [address] Care Team Providers Care Ski Production Supervisor Name Role Phone Migue Whiteside Primary Care Provider Reason for Visit * Reason Comments Follow Up Referred by Luz Moyer PA-C re.recurring rash lower legs.Pt.claims rash is also on her arms and lower abdomen.Started as tiny red,bumps then gets bigger and some of them joins together.Some are itchy.Stated that she had the same rash in 2017 went away , recurred 2 weeks ago.Was treated then by with Augmented Betamethasone and seems to have helped.Stated was not given any treatment for present rash. * Evaluate & Treat - Unlimited Visits (Within 3 days (urgent)) Status Reason Specialty Diagnoses / Procedures Referred By Contact Referred To Contact Authorized Specialty Services Required Dermatology Diagnoses Rash and nonspecific skin eruption Luz Moyer PA-C [address] [facility] [address] Encounter Details Date Type Department Care Team Description 09/10/2019 Office Visit Dermatology [facility] [address] [place] [address] Apple Kaminski MD [address] [place] [address] Vasculitis (HCC)*; Dermatitis Allergies Active Allergy Reactions Severity Noted Date Comments Pollen 05/18/2019 Heparin 09/04/2009 Heparin Induced Thrombocytopenia Empagliflozin Other (Please comment) Medium 05/17/2018 3 yeast infections in 6 weeks after starting Morphine And Related 09/16/1997 Hallucinations Tetanus Toxoid Other (Please comment) 06/15/2011 Passed out documented as of this encounter (statuses as of 09/10/2019) Medications Medication Sig Dispensed Refills Start Date [...] 5 01/01/2019 Active Blood Glucose Monitoring Suppl (Teads ULTRA 2) w/Device KIT Use to test BG values 1 Kit 0 01/26/2019 Active metoprolol tartrate (LOPRESSOR) 25 MG TabletIndications:HT N, goal below 130/80,Acute diastolic congestive heart failure (HCC),Body mass index (BMI) of 50.0 to 59.9 in adult ([facility]),Hypoxemia,ELISSA (obstructive sleep apnea),HTN, goal below 140/80 [...] at bedtime. 90 Tab 3 03/07/2019 Active insulin aspart (NOVOLOG) 100 UNIT/ML injection Use in insulin pump up to 200 units daily 3 Vial 12 03/14/2019 Active traZODone (DESYREL) 50 MG Tablet Take 1 Tab by mouth at bedtime. 30 Tab 5 04/04/2019 Active Glucose Blood (AnagranUCH ULTRA BLUE) STRP Check sugars 3-4 times [...] 08/09/2019 Active Vitamin D, Ergocalciferol, 1.25 MG (23757 UT) CapsuleIndications:V itamin D deficiency Take 1 [...] area. 22 g 1 09/05/2019 9 Active sulfamethoxazole-tri methoprim DS (BACTRIM DS) 800-160 MG per tabletIndications:No stril sore Take 1 Tab by mouth 2 times a day for 7 days. Until gone 14 Tab 0 09/05/2019 9 Active colchicine 0.6 MG TabletIndications:Va sculitis (HCC) Take 1/2 tab twice daily 30 Tab 0 09/10/2019 Active clobetasol propionate (TEMOVATE) 0.05 % creamIndications:Vas culitis (HCC) apply to rash on the legs and arm twice daily x 1-2 weeks. 30 g 5 09/10/2019 Active documented as of this encounter (statuses as of 09/10/2019) Active Problems Problem Noted Date 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, NYHA class 1 and CKD stage 3 05/14/2019 Other atherosclerosis of [place] arteries of extremities, left leg 02/26/2019 Lumbar [...] as of this encounter (statuses as of 09/10/2019) Resolved Problems Problem Noted Date Resolved Date [...] as of this encounter (statuses as of 09/10/2019) Immunizations Name Administration Dates Next Due Pneumococcal [...] Travel End documented as of this encounter Patient Instructions * Patient Instructions* Apple Kaminski MD - 09/10/2019 7:47 AM EST Skin Surgery Wound Care Instructions CHANGE DRESSING ONCE DAILY 1. Wash hands and remove the original dressing(s) in 12-24 hours. 2. Gently clean wound(s) with soap and water. Rinse with water and pat the wound dry. 3. Apply a thin layer of Vaseline ointment with a Q-tip. 4. Cover with a bandage if area(s) is not on the face or scalp. A dressing is not required on the face or scalp. Use non-adherent dressing and paper tape if you are sensitive to band-aid adhesive sensitive. WHAT TO EXPECT AFTER SURGERY: 1. Swelling and redness may occur around the wound for several days. If the procedure(s) was around the eye, skin around the eyes is often quite swollen and discolored for several days. 2. Shave biopsy sites will have a yellow center and thin red rim surrounding it. 3. Drainage is to be expected. The drainage may be yellow-green and have a slight odor. As long as the wound itself is healing, you do not have to be concerned about the drainage. 4. If bleeding occurs, apply FIRM CONSTANT PRESSURE to the dressing with fingertips and a dry, clean wash cloth for 20 - 30 minutes. No peeking to see if bleeding has stopped. 5. If you have any concerns about the healing wound, please call at: [place] office or [facility] office documented in this encounter Progress Notes * Apple Kaminski MD - 09/10/2019 7:15 AM EST SUBJECTIVE: History of Present Illness: Stephanie Camp is a 64 year old female seen today for recurrence of a rash. Last Office Visit: 11/04/2016-pt known to Dr. Herron. Pt seen for similar rash in the past by Dr. Herron but had resolved and now recurring 2 weeks ago, sometimes itches. Treated in the past with betamethasone dipropionate cream without improvement. First noticed on the legs and now spreading to the feet, arms and abdomen. Recently started on Bactrim for sore inside the nose, but pt reports rash started before she started taking the Bactrim. Otherwise feels well, denies any recent malaise, fevers, chills or joint aches. 09/02/16 BEL, ANCA, cryoglobulins, complement, SPEP are all negative. Anticardiolipin AB and Anti [id number] 09/03/09 09/03/09 heterozygous for prothrombin gene mutation. Biopsy 09/28/16 A. 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 These histologic findings are more suggestive of an occlusive vasculopathy than a vasculitis. Diagnostic considerations include pro-coagulant states due top factor deficiencies, reaction to medication andcryoglobulinemia. Clinical correlation is required Biopsy 08/09/16 A. Skin, right lateral leg: Ulceration with inflammatory crust, acute and chronic inflammation, and stasis related changes withdermal angioplasia, red blood cell extravasation, and hemosiderin deposition (see comment) Comment: The findings are not entirely specific and may be of a more evolved stage of the underlying process. Occasional small vessels with microthrombi and fibrinoid change of vessels poe are noted, which does raise the possibility of an evolved vasculitis. An evolved lesion of pityriasis lichenoides et varioliformis acuta cannot be excluded. Clinical correlation is required to ensure the specimen is sales representative adding machines of the clinically suspected lesion(s) and/or process. A re-biopsy may be helpful if clinical concern persists. B. Skin, perilesional right lateral leg: Direct immunofluorescence study showing trace granular deposition of IgA in occasional superficial dermal vessels, (see comment) Comment: Direct immunofluorescence study using fluorescein conjugated IgA, IgG, IgM, C3, and fibrinogen showed trace granular deposition of IgA in occasional superficial dermal vessels with 3+ staining of fibrinogen in superficial dermal vessels. There was no evidence of vessel staining for IgG, IgM, or C3. There wasno evidence of intercellular staining in the epidermis with immunoglobulin or complement. There was no evidenceof linear immunoglobulin or complement band at the epidermal junction. The trace granular deposition of IgA in occasional superficial dermal vessels is of uncertain significance as although this finding could represent Henoch-Schonlein purpura in the appropriate clinical setting,the staining is trace and the findings in the accompanying specimen in Part A above are not entirely specific. Moreover, the presence of vascular IgA deposition is not specific for Henoch-Schonlein purpura. In a study of 37 cases of IgA associated leukocytoclastic vasculitis, Giovani and Dinesh found only 15 of 37 cases met clinicopathologic criteria for a diagnosis of Henoch-Schonlein purpura (see reference: Michelle Matute. and Valente Montiel. A clinical and histologic study of 37 cases of immunoglobulin A-associated vasculitis. Am. J. Dermatopathol. 1999. 21, 234-240). Clinical correlation is required. REVIEW OF SYSTEMS: SKIN: No other new or changing moles. HEME/LYMPH: No new or enlarging lumps or bumps. MEDICA TIONS: Current Outpatient Medications Medication Sig Dispense Refill mupirocin calcium (BACTROBAN) 2 % ointment Apply topically to affected area 3 times a day for 14 days. Apply to affected area. 22 g 1 sulfamethoxazole-trimethoprim DS (BACTRIM DS) 800-160 MG per tablet Take 1 Tab by mouth 2 times a day for 7 days. Until gone 14 Tab 0 levothyroxine (LEVOXYL) 200 MCG Tablet TAKE ONE TABLET BY MOUTH EVERY DAY AT LEAST 30 MINUTES BEFORE BREAKFAST OR OTHER MEDS 90 Tab 4 levothyroxine (LEVOXYL) 25 MCG Tablet TAKE ONE TABLET BY MOUTH IN THE MORNING AT LEAST 30 MINUTES PRIOR TO BREAKFAST OR OTHER MEDS 90 Tab 1 Vitamin D, Ergocalciferol, 1.25 MG (02282 UT) Capsule Take 1 Cap by mouth [...] BY MOUTH TWICE DAILY 60 Tab 1 spironolactone (ALDACTONE) 25 MG Tablet Take 1 [...] by mouth at bedtime. 30 Tab 5 insulin aspart (NOVOLOG) 100 UNIT/ML injection Use in insulin pump up to 200 units daily 3 Vial 12 rOPINIRole (REQUIP) 2 MG Tablet Take 1 [...] 90 Tab 3 Blood Glucose Monitoring Suppl (Teads ULTRA 2) w/Device KIT Use to test [...] Date ELSIE (acute kidney injury) ([facility]) 06/12/2018 Allergic rhinitis due to other allergen Backache Diverticulosis of colon 01/28/06 DM type 2, not at goal ([facility]) ELLIE (generalized anxiety disorder) 09/13/[address] filter in [address] 08/19/2014 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[facility]) 08/22/2009 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[facility]) 06/12/2018 History of pulmonary embolus (PE) 07/16/2014 HTN, goal below 140/90 Impetigo 09/27/2018 Obesity, BMI not known Perforation of intestine ([facility]) 1996 COLON -- 1996 Pneumonia in aspergillosis(484.6) 09/14/2009 Spontaneous pneumothorax 09/14/2009 Statin intolerance 07/16/2014 Type 2 diabetes mellitus with hemoglobin A1c goal of 7.0%-8.0% ([facility]) 10/14/2014 ICD-10 update of inactive term Vaginal karmen 07/13/2018 OBJECTIVE: GEN: Healthy, alert, no distress, appears oriented, pleasant and cooperative. SKIN: Detailed exam of hair, face including lids and lips, neck, chest, abdomen, bilateral upper ext. (arm, hand, fingers) and bilateral lower ext. (leg, foot, toes) completed and are normal except: 1. Palpable purpura on the bilateral lower legs, dorsal feet, few on the right forearm and across the abdomen. ASSESS MENT/PLAN: 1. Vasculitis-check CBC, BMP, U/A, ASO titer, BEL, hepatitis panel, cryoglobulins, RF and SPEP to look for possible causes. Punch biopsy was advised. Benefits of establish/confirming diagnosis and risks of scarring, recurrence, need for further treatment were explained and after verbal consent patient chose to proceed with the procedure. Time out called. Patient identified, procedure verified, site identified and verified. Patient and staff present in agreement. Area prepped with alcohol. Anesthesia with 0.5% lidocaine was administered, and a 4mm punch biopsy from the right forearm was performed. Hemostasis was obtained with gelfoam and pressure. The area was covered with a pressure dressing, and post-op instructions were given. Patient tolerated the procedure well without complication and will be contacted withthe pathology. Patient Phone Numbers OK to leave message on answering machine with results of biopsy/labs: Yes Pt is diabetic so will avoid oral prednisone. Clobetasol cream twice daily as needed for flares Start Colchicine 0.3mg once daily to adjust for renal impairment. I have provided a significant and separately identifiable visit with today's procedure because an extensive amount of counseling related to the procedure was required due to number of underlying causes for vasculitis and further lab work-up to rule out underlying causes.. Follow-up: 2-3 week(s) There were no barriers tolearning and no other pain was related to today's visit. The patient and/or person accompanying patient demonstrates understanding of the visit and treatment. Apple Kaminski MD Ref: LUZ MOYER[[id number]] [address] [facility] [place] [address] (office) [phone] (fax) PCP: MIGUE WHITESIDE [address] [place] [address] [phone] documented in this encounter Nursing Notes * Althea Davidson RN - 09/10/2019 7:13 AM EST Patient identified by name and date of . Do you have any concerns about pain management for today's visit? No Living Will or Advance Directive for Health Care as noted on problem list. [facility] is a way you can talk to your provider online through e-mail. Would you like to sign up? I can activate it for you? ALREADY ACTIVE Chief Complaint Patient presents with Follow Up Referred by Luz jiang.recurring rash lower legs.Pt.claims rash is also on her arms and lower abdomen.Started as tiny red,bumps then gets bigger and some of them joins together.Some are itchy.Stated that she had the same rash in 2017 went away , recurred 2 weeks ago.Was treated then by with Augmented Betamethasone and seems to have helped.Stated was not given any treatment for present rash. documented in this encounter Miscellaneous Notes * Result QuickNote - Apple Kaminski MD - 09/10/2019 12:47 PM EST Please call pt and let her know I am still waiting on most of her labs but her kidney function was slightly worse today. I would like her to only take the colchicine 0.3mg (1/2 tab) ONLY ONCE DAILY to adjust for this and will touch base with her when the rest of her labs return. documented in this encounter Plan of Treatment Upcoming Encounters Date Type Specialty Care Team Description 09/12/2019 Office Visit Pulmonary Celsa Tafoya CRNP [address] [place] [address] [phone] 09/27/2019 Office Visit Dermatology Apple Kaminski MD [address] [place] [address] [phone] 10/03/2019 Office Visit Gynecology Obstetrics Yumiko Cast, [facility] [address] [facility] [place] [address] [phone] 10/09/2019 Technical Systems Architect [facility] Teddy Mccrary RN [address] [facility] [place] [address] [phone] 10/29/2019 Pharmacy Pharmacy [facility] [address] [place] [address] 11/07/2019 Office Visit Family Medicine Migue Whiteside DO [address] [place] [address] [phone] 02/26/2020 Office Visit Cardiology Rey Woodall MD [address] [place] [address] [phone] Pending Results Name Type Priority Associated Diagnoses Date /Time STREPTOLYSIN O ANTIBODY Lab Routine Vasculitis ([facility]) 09/10/2019 7:48 AM EST BEL Lab Routine Vasculitis ([facility]) 09/10/2019 7:48 AM EST SERUM PROTEIN, EPG Lab Routine Vasculitis ([facility]) 09/10/2019 7:48 AM EST CRYOGLOBULIN SCREEN Lab Routine Vasculitis ([facility]) 09/10/2019 7:48 AM EST SURGICAL PATHOLOGY Pathology Routine Dermatitis 09/10/2019 2:32 PM EST Scheduled Orders Name Type Priority Associated Diagnoses Orde r Schedule STREPTOLYSIN O ANTIBODY Lab Routine Vasculitis ([facility]) Expected: 09/10/2019 (Approximate), Expires: 12/10/2019 BEL Lab Routine Vasculitis ([facility]) Expected: 09/10/2019 (Approximate), Expires: 12/10/2019 CRYOGLOBULIN SCREEN Lab Routine Vasculitis ([facility]) Expected: 09/10/2019 (Approximate), Expires: 12/10/2019 PUNCH BIOPSY OF SKIN; SINGLE LESION Procedures Routine Dermatitis Ordered: 09/10/2019 Health Maintenance Due Date Last Done Comments Zoster Vaccines (2 of 3) 02/05/2016 12/11/2015 PAP SMEAR-EVERY 3 YRS,AGES 21-65 05/11/2016 05/11/2013, 03/01/2008, 10/19/2006, Additional history exists CKD PHOS USE SMARTSET 13821 12/29/2018 04/0 01/2018, 08/26/2009, 08/25/2009, Additional history exists DIABETES-FOOT EXAM 01/02/2020 01/01/2019, 0 12/29/2017, 10/21/2016, Additional history exists CKD GFR USE SMARTSET 45593 02/07/202008/09, 07/20/2019, 06/15/2019, Additional history exists DIABETES-HGBA1C EVERY 6 MONTHS 02/07/2020 08/09/2019, 03/14/2019, 09/27/2018, Additional history exists Yearly B-12 03/14/2020 03/14/2019, 05/16/2018 DIABETES-EYE EXAM 04/05/2020 04/05/2019, (Done elsewhere), 12/18/2009, Additional history exists DIABETES-URINE MICROALBUMIN EVERY 12 MONTHS 05/24/2020 05/24/2019, 02/26/2019, 12/23/2018, Additional history exists BREAST CANCER SCREENING DISCUSSION YEARLY AGES 40-75 07/10/2020 07/10/2019, 06/23/2018, 05/09/2015, Additional history exists CKD HGB USE SMARTSET 56432 07/20/202007/20, 02/26/2019, 12/23/2018, Additional history exists Pneumococcal Vaccine: Pediatrics (0 [...] Procedure Name Priority Date/Time Associated Diagnosis Comments ROUTINE URINALYSIS Routine 09/10/2019 7: 49 AM EST Vasculitis (HCC) SERUM PROTEIN, EPG Routine 09/10/2019 7: 48 AM EST Vasculitis (HCC) ACUTE HEPATITIS PANEL Routine 09/10/2019 7:48 AM EST Vasculitis (HCC) BASIC METAB PANEL, BMP Routine 09/10/2019 7:48 AM EST Vasculitis (HCC) CBC/DIFF Routine 09/10/2019 7:48 AM EST Vasculitis (HCC) RHEUMATOID FACTOR Routine 09/10/2019 7:4 8 AM EST Vasculitis (HCC) DERM IMAGE (SITE) Routine 09/10/2019 Dermatitis documented in this encounter Results * ROUTINE URINALYSIS (09/10/2019 7:49 AM EST) COLOR, UA COLORLESS(A) YEL [facility] CLARITY, UA CLEAR CLEAR [facility] GLUCOSE, UA NEGATIVE NEG mg/dL [facility] BILIRUBIN, UA NEGATIVE NEG [facility] KETONE, UA NEGATIVE NEG mg/dL [facility] SPECIFIC GRAVITY 1.010 1.003 - 1.030 [facility] BLOOD, UA NEGATIVE NEG [facility] PH, UA 6.5 5.0 - 7.5 units [facility] PROTEIN, UA NEGATIVE NEG mg/dL [facility] UROBILINOGEN, UA NORMAL NORM mg/dL [facility] NITRITE, UA NEGATIVE NEG [facility] ESTERASE, UA NEGATIVE NEG [facility] COMMENT, UA SCREEN NEGATIVE - MICROSCOPIC NOT DONE [facility] Specimen Urine Performing Organization Address City/State/Zipcod e Phone Number [facility], [address] [place] [address] * BASIC METAB PANEL, BMP (09/10/2019 7:48 AM EST) BUN 34(H) 6 - 20 mg/dL [facility] CREATININE 2.0(H) 0.5 - 1.0 mg/dL [facility] E GLOM FILT RATE 26.0(L)Comment:If patient is , multiply estimated GFR by 1.159. >60 [facility] SODIUM 133(L) 135 - 146 mmol/L [facility] POTASSIUM 4.9 3.5 - 5.1 mmol/L [facility] CHLORIDE 94(L) 98 - 107 mmol/L [place] CO2 25 22 - 32 mmol/L [place] ANION GAP 14 7 - 15 mmol/L [place] GLUCOSE 265(H) 70 - 120 mg/dL [place] CALCIUM 9.4 8.4 - 10.2 mg/dL [place] Specimen Performing Organization Address City/[facility]/Zipcod e Phone Number [facility], [address] [place] [address] * RHEUMATOID FACTOR (09/10/2019 7:48 AM EST) Pathologist [facility] RHEUMATOID FACTOR <10 <14 IU/mL [facility] Specimen Performing Organization Address City/[facility] Hospital[facility] e Phone Number [facility], [address] [place] [address] * ACUTE HEPATITIS PANEL (09/10/2019 7:48 AM EST) Pathologist [facility] HEP A AB IGM NEGATIVE NEG [facility] HEP B CORE AB IGM NEGATIVE NEG [facility] HEP B SURFACE AG NEGATIVE NEG [facility] HEPATITIS C ANTIBODY NEGATIVE NEG [facility] Specimen Performing Organization Address City/[facility] e Phone Number [facility], [address] [place] [address] * CBC/DIFF (09/10/2019 7:48 AM EST) Pathologist [facility] WBC 10.23 4.00 - 10.80 K/uL [place] RBC 4.68 3.85 - 5.15 M/uL [place] HGB 13.5 12.0 - 15.3 g/dL [place] HCT 44.1 36.0 - 45.2 % [place] MCV 94.2 81.5 - 97.5 [facility] MCH 28.8 27.0 - 34.0 pg [place] MCHC 30.6(L) 32.0 - 36.0 g/dL [place] RDW 15.9(H) 11.5 - 15.5 % [place] PLATELET COUNT 263 140 - 400 K/uL [place] MPV 10.8 6.6 - 11.1 [facility] NEUTS 63.4 40 - 75 % [place] LYMPHS 25.3 18 - 42 % [place] MONOS 5.6 1 - 11 % [place] EOS 5.0 0 - 6 % [place] BASOS 0.7 0 - 2 % [place] ABS. NEUTS 6.49 1.8 - 7.7 K/uL [place] ABS. LYMPHS 2.59 1.0 - 4.8 K/uL [place] ABS. MONOS 0.57 0.0 - 1.1 K/uL [place] ABS. EOS 0.51 0.0 - 0.7 K/uL [place] ABS. 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
--- OUTSIDE RECORDS SUMMARY | 2023-06-01 05:38 | External Medical Summary ---
Author Name Unknown Address [address] [place] [address] Phone Organization K01:[place] [address] Laboratory Report Ordering Provider Test Date Status MABEL TAYLOR 09/10/2019 07:49:00 Final Observation Date Value Abnormality Reference Status Color Ur Auto 09/10/2019 15:05 COLORLESS Abnormal YEL Final Clarity, Urine 09/10/2019 15:05 CLEAR CLEAR Final Glucose Ur Strip.auto-mCnc 09/10/2019 15:05 NEGATIVE NEG Final Bilirub Ur Ql Strip.auto 09/10/2019 15:05 NEGATIVE NEG Final Ketones Ur Strip.auto-nc 09/10/2019 15:05 NEGATIVE NEG Final Specific gravity, Urine 09/10/2019 15:05 1.010 1.003-1.030 Final Hemoglobin [Presence] in Urine by Automated test strip 09/10/2019 15:05 NEGATIVE NEG Final pH, Urine 09/10/2019 15:05 6.5 5.0-7.5 Final Prot Ur Strip.auto-mCnc 09/10/2019 15:05 NEGATIVE NEG Final Urobilinogen Ur Strip.auto-nc 09/10/2019 15:05 NORMAL NORM Final Nitrite Ur Ql Strip.auto 09/10/2019 15:05 NEGATIVE NEG Final Leukocyte esterase [Presence} in Urine by Automated test strip 09/10/2019 15:05 NEGATIVE NEG Final Annotation Comment 09/10/2019 15:05 SCREEN NEGATIVE - MICROSCOPIC NOT DONE Final Performing Location [place] [id number]
--- OUTSIDE RECORDS SUMMARY | 2023-06-01 05:38 | External Medical Summary ---
Author Name Unknown Address [address] [place] [address] ) Organization K03:[facility] [address] [place] [address] Laboratory Report Ordering Provider Test Date Status MABEL TAYLOR 09/10/2019 07:48:00 Final Observation Date Value Abnormality Reference (Units ) Status Anti-Streptolysin O Ab 09/12/2019 05:39 237 Above high normal <200 (IU/mL) Final Performing Location [facility] [address] [place], [place] [id number]
--- OUTSIDE RECORDS SUMMARY | 2023-06-01 05:38 | External Medical Summary ---
Author Name Unknown Address [facility] [place] [address] Phone Organization K01:[facility] [address] [place] [id number] Laboratory Report Ordering Provider Test Date Status MABEL TAYLOR 09/10/2019 07:48:00 Final Observation Date Value Abnormality Reference Status BEL, RASHAD Screen 09/11/2019 11:11 NEGATIVE Final Performing Location [place] [address] [place] [id number]
--- OUTSIDE RECORDS SUMMARY | 2023-06-01 05:38 | External Medical Summary | Summary of Care ---
Author Name Unknown Organization [place] [address] Care Team Providers Care Fitness Coordinator Name Role Phone Kevin Whiteside DO Primary Care Provider Reason for Visit * Reason Comments Follow Up Encounter Details Date Type Department Care Team Description 09/12/2019 Office Visit Pulmonary Medicine, [facility] [address] [facility] [place] [address] Celsa Tafoya CRNP [address] [place] [address] ELISSA (obstructive sleep apnea)*; Nocturnal hypoxemia; Restless legs syndrome; Wheezing; AVENDAÑO (dyspnea on exertion); Chronic hypoxemic respiratory failure (HCC); Nasal congestion; Chronic diastolic congestive heart failure (HCC); Body mass index (BMI) of 50.0 to 59.9 in adult (HCC) Allergies Active Allergy Reactions Severity Noted Date Comments Pollen 05/18/2019 Heparin 09/04/2009 Heparin Induced Thrombocytopenia Empagliflozin Other (Please comment) Medium 05/17/2018 3 yeast infections in 6 weeks after starting Morphine And Related 09/16/1997 Hallucinations Tetanus Toxoid Other (Please comment) 06/15/2011 Passed out documented as of this encounter (statuses as of 09/12/2019) Medications Medication Sig Dispensed Refills Start Date [...] 5 01/01/2019 Active Blood Glucose Monitoring Suppl ([employer] ULTRA 2) w/Device KIT Use to test BG values 1 Kit 0 01/26/2019 Active metoprolol tartrate (LOPRESSOR) 25 MG TabletIndications:HT N, goal below 130/80,Acute diastolic congestive heart failure (HCC),Body mass index (BMI) of 50.0 to 59.9 in adult ([facility]),Hypoxemia,ELISSA (obstructive sleep apnea),HTN, goal below 140/80 Take [...] of 7.0%-8.0% ([facility]) Inject 0.5 mg under the skin once [...] 08/09/2019 Active Vitamin D, Ergocalciferol, 1.25 MG (39518 UT) CapsuleIndications:V itamin D deficiency Take 1 [...] 1-2 weeks. 30 g 5 09/10/2019 Active Hospital, Clinic, or Other Facility Administered Medication Ordered Dose Route Frequency Start Date End Date Status levalbuterol (XOPENEX) inhalation solution 0.63 mgIndications:Wheezing 0.63 mg NEBULIZER Q4H PRN 09/12/2019 Ac tive documented as of this encounter (statuses as of 09/12/2019) Active Problems Problem Noted Date 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, NYHA class 1 and CKD stage 3 05/14/2019 Other atherosclerosis of [place] arteries of extremities, left leg 02/26/2019 Lumbar [...] 10/14/2014 Overview: ICD-10 update of inactive term [place] filter in place 08/19/2014 History of pulmonary [...] as of this encounter (statuses as of 09/12/2019) Resolved Problems Problem Noted Date Resolved Date [...] as of this encounter (statuses as of 09/12/2019) Immunizations Name Administration Dates Next Due Pneumococcal [...] Sign Reading Time Taken Comments Blood Pressure 126/74 09/12/2019 4:07 PM EST Pulse 93 09/12/2019 4:07 PM EST Temperature - - Respiratory Rate - - Oxygen Saturation 93% 09/12/2019 4:07 PM EST Inhaled Oxygen Concentration - - Weight 153.8 kg (339 lb) 09/12/2019 4:07 PM EST Height - - Body Mass Index 56.41 08/24/2019 2:52 PM EST documented in this encounter Patient Instructions * Patient Instructions* Celsa Tafoya CRNP - 09/12/2019 4:19 PM EST Ask pharmacist for chelated iron recommendations (easier on stomach). Start once a week and increase as tolerated. documented in this encounter Progress Notes * Celsa Tafoya CRNP - 09/12/2019 4:15 PM EST [facility] History: 6 month f/u for ELISSA on CPAP with oxygen and RLS. [facility] has requested pulmonary work up for wheezing. PMH includes CHF, obesity, pneumonia requiring extended ventilation and trach, CKD, DM, HTN, GERD, chronic back pain. Tried iron but caused GI upset/constipation. Ropinirole 2mg and gabapentin 300mg dosed 6pm. Walks within her apartment in evening. Using Raki therapy. RLS noted around 3am. In bed 11p. Attending PT for back pain which has been helpful. Continues nightly CPAP with oxygen. Denies tolerance issues. Compliance Data: Report date: 30 days, 09/11/19 % total days used: 100 % days used > 4 hours: 93 Average hours per day used: 7 hours 30 mins Large leak: 1 mins AHI: 0.3 Equipment: DME Provider: [facility] Oxygen Device/settin cmH20 Was seen by Dermatology who suspects vasculitis with lesions noted on arm, stomach, legs. This was first noted 5-6 years ago. Another outbreak started 3 weeks ago. Was told years ago that she had exercise induced asthma. Smoking history 24 yrs x0.75 ppd, quit 1996 History of pneumonia requiring extended intubation in 2008. Required trach for approx 3 months. Hx of CHF (hospitalized twice, last summer 2017). Suspects environmental/seasonal allergies. Uses occasional antihistamine. Has chronic sinus congestion - uses Afrin. 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 ROS: Constitutional: no night sweats or unexplained weight loss; +/- fatigue ENT: no am headaches, dysphagia, +chronic sinus congestion, +suspected allergies Cardiovascular: no chest pain, palpitations; +lower extremity edema Pulmonary: + baseline shortness of breath, +cough from drainage, -wheezing, - nocturnal symptoms Gastro: no abdominal pain, aerophagia or nocturnal gastric reflux Neuro: No dizziness, lightheadedness or syncope All other systems reviewed and negative. Reviewed changes in PMH, PSH or family history in the interim of care. 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 Nocturnal hypoxemia G47.34 ELISSA (obstructive sleep apnea) G47.33 Venous insufficiency I87.2 HTN, goal below 130/80 I10 History of pulmonary embolus (PE) Z86.711 Statin intolerance Z78.[address] Z95.828 Type 2 diabetes mellitus with hemoglobin A1c goal of 7.0%-8.0% ([facility]) E11.9 Fibromyalgia M79.7 Abnormality of gait R26.9 Restless legs syndrome G25.81 Gastroesophageal reflux disease with esophagitis K21.0 Uncontrolled type 2 diabetes mellitus with stage 3 chronic kidney disease, with long-term current use of insulin ([facility]) E11.22, E11.65, N18.3, Z79.4 Body mass index (BMI) of 50.0 to 59.9 in adult ([facility]) Z68.43 Controlled substance agreement signed Z79.899 Chronic diastolic congestive heart failure ([facility]) I50.32 Thoracic back pain M54.6 Mild episode of recurrent major depressive disorder ([facility]) F33.0 Lumbar radiculopathy M54.16 Other atherosclerosis of [place] arteries of extremities, left leg ([facility]) I70.292 Benign hypertensive heart and kidney disease with diastolic CHF, NYHA class 1 and CKD stage 3 ([facility]) I13.0, I50.30, N18.3 Current Medications: Outpatient Medications Marked as Taking for the 09/12/19 encounter (Office Visit) with TATIANA Negrete Medication Sig clobetasol propionate (TEMOVATE) 0.05 % cream apply to rash on the legs and arm twice daily x 1-2 weeks. colchicine 0.6 MG Tablet Take 1/2 tab twice daily mupirocin calcium (BACTROBAN) 2 % ointment Apply topically to affected area 3 times a day for 14 days. Apply to affected area. sulfamethoxazole-trimethoprim DS (BACTRIM DS) 800-160 MG per tablet Take 1 Tab by mouth 2 timesa day for 7 days. Until gone levothyroxine (LEVOXYL) 200 MCG Tablet TAKE ONE TABLET BY MOUTH EVERY DAY AT LEAST 30 MINUTES BEFORE BREAKFAST OR OTHER MEDS levothyroxine (LEVOXYL) 25 MCG Tablet TAKE ONE TABLET BY MOUTH IN THE MORNING AT LEAST 30 MINUTES PRIOR TO BREAKFAST OR OTHER MEDS Vitamin D, Ergocalciferol, 1.25 MG (26518 UT) Capsule Take 1 Cap by mouth every 4 weeks. DULoxetine (CYMBALTA) 30 MG CPEP Take 1 Cap by mouth daily. Take along with the 60mg dose for totally of 90mg daily. Do not cut, crush or chew Semaglutide,0.25 or 0.5MG/DOS, (OZEMPIC, 0.25 OR 0.5 MG/DOSE,) 2 MG/1.5ML SOPN Inject 0.5 mg under the skin once a week. traMADol (ULTRAM) 50 MG Tablet Take 1 Tab by mouth every 8 hours as needed for Pain, Severe. clonazePAM (KLONOPIN) 0.5 MG Tablet TAKE ONE TABLET BY MOUTH TWICE DAILY spironolactone (ALDACTONE) 25 MG Tablet Take 1 Tab by mouth daily. Magnesium Oxide 400 (241.3 mg) Tablet Take 400 mg by mouth daily. furosemide (LASIX) 40 MG Tablet Take 40 mg by mouth daily. oxygen GAS 2 L/min(Oxygen). 2 LPM bled through CPAP 11 cwp during all periods of sleep. Glucose Blood ([employer] ULTRA BLUE) STRP Check sugars 3-4 times daily traZODone (DESYREL) 50 MG Tablet Take 1 Tab by mouth at bedtime. insulin aspart (NOVOLOG) 100 UNIT/ML injection Use in insulin pump up to 200 units daily rOPINIRole (REQUIP) 2 MG Tablet Take 1 [...] times a day. Blood Glucose Monitoring Suppl ([employer] ULTRA 2) w/Device KIT Use to test BG values gabapentin (NEURONTIN) 300 MG Capsule Take 1 Cap by mouth 3 times a day. DULoxetine (CYMBALTA) 60 MG CPEP Take 1 Cap by mouth daily. Do not cut, crush or chew ACCU-CHEK SOFTCLIX LANCETS MISC Test sugar 3-4 times a day. Ok to substitute Fastclix lancets, if needed. Glucose Blood (ACCU-CHEK HARRIS PLUS) STRP Test sugar 3-4 times a day. cyclobenzaprine (FLEXERIL) 10 MG Tablet TAKE ONE TABLET BY MOUTH AT BEDTIME NEEDED FOR MUSCLE SPASM Nortriptyline HCl (PAMELOR) 50 MG Capsule Take 1 Cap by mouth at bedtime. ONETOUCH DELICA LANCETS 33G MISC Check blood sugars 3-4 times daily docusate sodium (STOOL SOFTENER) 100 MG Capsule Take 100 mg by mouth 2 times a day as needed for Constipation. PRILOSEC 20 MG PO CPDR one tablet daily BP 126/74 | Pulse 93 | Wt 339 lbs (153.769kg) | BMI 56.41 kg/m | BSA 2.66 m | SaO2 93% | LMP 03/11/2003 Constitutional: Alert, oriented and in no acute distress, obese HEENT: MMM, mallimpati 4, erythema patches noted to posterior hard/soft palate Cardio: Regular rate and rhythm. No murmur. Chest: Normal respiratory effort at rest, equal breath sounds, clear to ascultation. Neuro: Fluent speech, no focal motor deficits, gait steady. Psych: Appropriate mood and affect. Diagnostics: Sleep: - 07/2011 (332 lbs) AHI 11.3. Significant hypoxemia - 09/2012 titration 11cwp but was suboptimal - NPO CPAP/2L 03/25/16: <89% 40 mins, CPAP use confirmed, AHI 0.3, no excessive leak - Titration 04/09/19: nasal CPAP 11 cwp with 2 LPM, PLMI 7.8 - Ferritin 03/2019: 49 No prior spirometry/PFT. CTA report 05/2018 reviewed suggesting areas of GGO bilaterally, atelectasis 09/10/19 - EOS 510, Cr 2, CO2 25 02/2019 - TSH 0.88 Assessment & Plan: ELISSA (obstructive sleep apnea) (Primary) Nocturnal hypoxemia Compliant, therapeutic and benefiting from treatment. Continue BIPAP/oxygen during hours of sleep. Restless legs syndrome Doing better. Recommended chelated iron. Wheezing AVENDAÑO (dyspnea on exertion) Likely multifactoral s/t CHF, obesity, and deconditioning with underlying airways disease being a possible contributor. - SPIROMETRY B/A BRONCHODILATOR - DIFFUSION CAPACITY (DLCO) - LUNG VOLUMES (PLETHYSMOGRAPHY) - levalbuterol (XOPENEX) inhalation solution 0.63 mg - IGE - NE REGIONAL RAST Chronic hypoxemic respiratory failure (HCC) Daytime oxygen needs reassessed. May be s/t CHF vs underlying airways disease. Hypercapnia not suspected. - PULMONARY STRESS TESTING Nasal congestion Avoid nasal decongestants. Encouraged daily saline lavage. - IGE - NE REGIONAL RAST Chronic diastolic congestive heart failure (HCC) Continue management per Cardiology/[facility]. Body mass index (BMI) of 50.0 to 59.9 in adult (HCC) Patient Instructions Ask pharmacist for chelated iron recommendations (easier on stomach). Start once a week and increase as tolerated. I plan to review case with Dr. Morris regarding concerns for vasculitis. Consider repeat imaging. A total of 50 minutes were spent with the patient, more than half in [id number] explanation and discussion of the condition and treatment and answering questions. I have advised the patient to contact our office with any new or worsening symptoms. Follow-up after testing. 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 documented in this encounter Plan of Treatment Upcoming Encounters Date Type Specialty Care Team Description 09/14/2019 PulmDiagnostic Pulmonary [facility] [place] [address] [place] [address] [address] [phone] 09/27/2019 Office Visit Dermatology Apple Kaminski MD [address] [place] [address] [phone] 10/03/2019 Office Visit Gynecology Obstetrics Yumiko Cast [facility] [address] [place] [address] [phone] 10/09/2019 Home Visit [facility] Teddy Mccrary RN [address] [place] [address] [address] [phone] 10/29/2019 Pharmacy Pharmacy [facility] [address] [address] 11/07/2019 Office Visit Family Medicine Kevin Whiteside DO [address] [address] [phone] 02/26/2020 Office Visit Cardiology Rey Woodall MD [address] [address] [phone] Scheduled Orders Name Type Priority Associated Diagnoses Orde r Schedule SPIROMETRY B/A BRONCHODILATOR Procedures Routine Wheezing Ordered: 09/12/2019 DIFFUSION CAPACITY (DLCO) Procedures Routine Wheezing Ordered: 09/12/2019 LUNG VOLUMES (PLETHYSMOGRAPHY) Procedures Routine Wheezing Ordered: 09/12/2019 PULMONARY STRESS TESTING Procedures Routine Chronic hypoxemic respiratory failure (HCC) Ordered: 09/12/2019 IGE Lab Routine Wheezing Nasal congestion Ordered: 09/12/2019 NE REGIONAL RAST Lab Routine Wheezing Nasal congestion Ordered: 09/12/2019 Health Maintenance Due Date Last Done Comments Zoster Vaccines (2 of 3) 02/05/2016 12/11/2015 PAP SMEAR-EVERY 3 YRS,AGES 21-65 05/11/2016 05/11/2013, 03/01/2008, 10/19/2006, Additional history exists CKD PHOS USE SMARTSET 05288 12/29/2018 04/0 01/2018, 08/26/2009, 08/25/2009, Additional history exists DIABETES-FOOT EXAM 01/02/2020 01/01/2019, 0 12/29/2017, 10/21/2016, Additional history exists DIABETES-HGBA1C EVERY 6 MONTHS 02/07/2020 08/09/2019, 03/14/2019, 09/27/2018, Additional history exists CKD GFR USE SMARTSET 70661 03/11/202009/10, 08/09/2019, 07/20/2019, Additional history exists Yearly B-12 03/14/2020 03/14/2019, 05/16/2018 DIABETES-EYE EXAM 04/05/2020 04/05/2019, (Done elsewhere), 12/18/2009, Additional history exists DIABETES-URINE MICROALBUMIN EVERY 12 MONTHS 05/24/2020 05/24/2019, 02/26/2019, 12/23/2018, Additional history exists BREAST CANCER SCREENING DISCUSSION YEARLY AGES 40-75 07/10/2020 07/10/2019, 06/23/2018, 05/09/2015, Additional history exists CKD HGB USE SMARTSET 33467 09/10/202009/10, 07/20/2019, 02/26/2019, Additional history exists Pneumococcal [...] apnea)- Primary Obstructive sleep apnea (adult) (pediatric) Nocturnal hypoxemia Hypoxemia Restless legs syndrome Restless legs syndrome (RLS) Wheezing AVENDAÑO (dyspnea on exertion) Other dyspnea and respiratory abnormality Chronic hypoxemic respiratory failure (HCC) Chronic respiratory failure Nasal congestion Other diseases of nasal cavity and sinuses Chronic diastolic congestive heart failure (HCC) Chronic diastolic heart failure Body mass index (BMI) of 50.0 to 59.9 in adult (HCC) documented in this encounter Advance Directives Documents on File Type Date Recorded 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
--- OUTSIDE RECORDS SUMMARY | 2023-06-01 05:38 | External Medical Summary | Summary of Care ---
Author Name Unknown Organization [place] [address] Care Team Providers Care Legal Recovery Specialist Name Role Phone Whiteside Kevin Ocampomelinda Primary Care Provider Reason for Visit * Reason Comments Test Results Encounter Details Date Type Department Care Team Description 09/10/2019 Telephone Dermatology [facility] [address] [facility] [address] [place] [address] Apple Kaminski MD [address] [place] [address] Test Results Allergies Active Allergy [...] 5 01/01/2019 Active Blood Glucose Monitoring Suppl ([employer] ULTRA 2) w/Device KIT Use to test BG values 1 Kit 0 01/26/2019 Active metoprolol tartrate (LOPRESSOR) 25 MG TabletIndications:HT N, goal below 130/80,Acute diastolic congestive heart failure (HCC),Body mass index (BMI) of 50.0 to 59.9 in adult ([facility]),Hypoxemia,ELISSA (obstructive sleep apnea),HTN, goal below 140/80 [...] A1c goal of 7.0%-8.0% ([facility]) Inject 0.5 mg under the skin [...] 08/09/2019 Active Vitamin D, Ergocalciferol, 1.25 MG (81213 UT) CapsuleIndications:V itamin D deficiency Take 1 [...] CKD stage 3 05/14/2019 Other atherosclerosis of [place] arteries of extremities, left leg 02/26/2019 Lumbar [...] Telephone Encounter - Miranda Quick OSA - 09/10/2019 2:54 PM EST Spoke to patient and informed her of Dr. Kaminski message. * Telephone Encounter - Miranda Quick OSA - 09/10/2019 2:54 PM EST ----- Message from Apple Kaminski MD sent at 09/10/2019 12:47 PM EST ----- Please call pt and let her know I am still waiting on most of her labs but her kidney function was slightly worse today. I would like her to only take the colchicine 0.3mg (1/2 tab) ONLY ONCE DAILY to adjust for this and will touch base with her when the rest of her labs return. * Telephone Encounter - Chandni Hall OSA - 09/10/2019 12:52 PM EST Pt is returing missed call and requesting a call back Pt was transferred to her assistant case manager documented in this encounter Plan of Treatment Upcoming Encounters Date Type Specialty Care Team Description 09/12/2019 Office Visit Pulmonary Celsa Tafoya CRNP [address] [address] [phone] 09/27/2019 Office Visit Dermatology Apple Kaminski MD [address] [place] [address] [phone] 10/03/2019 Office Visit Gynecology [facility]stetrics [facility]iko Cast [facility] [address] [facility] [address] [phone] 10/09/2019 Loan Analyst [facility] Teddy Mccrary, LEXI [address] [address] [address] [phone] 10/29/2019 Pharmacy Pharmacy [facility] [address] [address] 11/07/2019 Office Visit Family Medicine Kevin Whiteside DO [address] [address] [phone] 02/26/2020 Office Visit Cardiology Rey Woodall MD [address] [address] [phone] Health Maintenance Due Date Last Done Comments Zoster Vaccines (2 of 3) 02/05/2016 12/11/2015 PAP SMEAR-EVERY 3 YRS,AGES 21-65 05/11/2016 05/11/2013, 03/01/2008, 10/19/2006, Additional history exists CKD PHOS USE SMARTSET 44518 12/29/201801/2018, 08/26/2009, 08/25/2009, Additional history exists DIABETES-FOOT EXAM 01/02/2020 01/01/2019, 0 12/29/2017, 10/21/2016, Additional history exists CKD GFR USE SMARTSET 40741 02/07/202008/09, 07/20/2019, 06/15/2019, Additional history exists DIABETES-HGBA1C EVERY 6 MONTHS 02/07/2020 08/09/2019, 03/14/2019, 09/27/2018, Additional history exists Yearly B-12 03/14/2020 03/14/2019, 05/16/2018 DIABETES-EYE EXAM 04/05/2020 04/05/2019, (Done elsewhere), 12/18/2009, Additional history exists DIABETES-URINE MICROALBUMIN EVERY 12 MONTHS 05/24/2020 05/24/2019, 02/26/2019, 12/23/2018, Additional history exists BREAST CANCER SCREENING DISCUSSION YEARLY AGES 40-75 07/10/2020 07/10/2019, 06/23/2018, 05/09/2015, Additional history exists CKD HGB USE SMARTSET 66483 07/20/202007/20, 02/26/2019, 12/23/2018, Additional history exists Pneumococcal [...] Documents on File Type Date 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
--- OUTSIDE RECORDS SUMMARY | 2023-06-01 05:38 | External Medical Summary ---
Author Name Unknown Address [facility] [address] [id number] Phone Organization K01:[facility] [address] [id number] Laboratory Report Ordering Provider Test Date Status MABEL TAYLOR 09/10/2019 07:48:00 Final Observation Date Value Abnormality Reference Status Protein 09/10/2019 14:37 7.85 6.0-8.3 Final Albumin MFr.DF SerPl Elph 09/11/2019 14:47 3.20 Below low normal 3.3-4.4 Final Alpha1 Glob MFr.DF SerPl ph 09/11/2019 14:47 0.21 0.1-0.3 Final Alpha2 Glob MFr.DF SerPl Elph 09/11/2019 14:47 1.12 Above high normal 0.6-1.0 Final B-Globulin MFr.DF SerPl Elph 09/11/2019 14:47 1.16 0.8-1.3 Final Gamma glob MFr.DF SerPl Elph 09/11/2019 14:47 2.16 Above high normal 0.7-1.7 Final Prot Pattern SerPl Elph-Imp 09/11/2019 14:47 No paraprotein present. There is a polyclonal increase in the gamma globulin fraction. This finding may be seen in association with chronic inflammation, infection, chronic liver disease or collagen disorders. Final Performing Location [place] [address] [address] [facility] [address]
--- OUTSIDE RECORDS SUMMARY | 2023-06-01 05:38 | External Medical Summary ---
Author Name Unknown Address [address] [place], [place] [address] Phone Organization K09:[facility] [address] [place] [address] Laboratory Report Ordering Provider Test Date Status MABEL TAYLOR 09/10/2019 07:48:00 Final Observation Date Value Abnormality Reference Status BUN 09/10/2019 09:11 34 Above high normal 6-20 Final Creatinine 09/10/2019 09:11 2.0 Above high normal 0.5- 1.0 Final E Glom Filt Rate 09/10/2019 09:11 26.0 Below low normal >60 Final Performing Location [facility] [address] [place] [address]
--- OUTSIDE RECORDS SUMMARY | 2023-06-01 05:38 | External Medical Summary ---
Author Name Unknown Address [address] [facility] [place] [address] Phone Organization K09:[facility] [address] [facility] [place] [address] Laboratory Report Ordering Provider Test Date Status MABEL TAYLOR 09/10/2019 07:48:00 Final Observation Date Value Abnormality Reference Status WBC, Total 09/10/2019 08:42 10.23 4.00-10.80 F inal RBC 09/10/2019 08:42 4.68 3.85-5.15 Fin al Hemoglobin 09/10/2019 08:42 13.5 12.0-15.3 Fi nal HCT 09/10/2019 08:42 44.1 36.0-45.2 Fin al MCV 09/10/2019 08:42 94.2 81.5-97.5 Fin al MCH 09/10/2019 08:42 28.8 27.0-34.0 Fin al MCHC 09/10/2019 08:42 30.6 Below low normal 32.0-3 6.0 Final RDW 09/10/2019 08:42 15.9 Above high normal 11.5- 15.5 Final Platelets 09/10/2019 08:42 263 140-400 Fin al MPV 09/10/2019 08:42 10.8 6.6-11.1 Fin al Segs 09/10/2019 08:43 63.4 40-75 Fin al Lymphs % 09/10/2019 08:43 25.3 18-42 Fin al Monos 09/10/2019 08:43 5.6 1-11 Fin al Eosinophils 09/10/2019 08:43 5.0 0-6 F inal Basos 09/10/2019 08:43 0.7 0-2 Fin al Neutrophils Bld 09/10/2019 08:43 6.49 1.8-7.7 Final Lymphs, absolute 09/10/2019 08:43 2.59 1.0-4. 8 Final Monos, Abs 09/10/2019 08:43 0.57 0.0-1.1 Fi nal Eos, Abs 09/10/2019 08:43 0.51 0.0-0.7 Fin rizwan Bartonos, Abs 09/10/2019 08:43 0.07 0.0-0.2 Fi nal Performing Location [facility] [address] [place] [address]
--- OUTSIDE RECORDS SUMMARY | 2023-06-01 05:38 | External Medical Summary | Summary of Care ---
Author Name Unknown Organization [place] [address] Care Team Providers Care Electric Blasting Cap Assembler Name Role Phone Whiteside Kevin Ocampomelinda Primary Care Provider Reason for Visit * Reason Comments Appointment Encounter Details Date Type Department Care Team Description 09/13/2019 Telephone Pulmonary Medicine, [facility] [address] [place] [address] Celsa Tafoya CRNP [address] [facility] [place] [address] Appointment Allergies Active [...] 5 01/01/2019 Active Blood Glucose Monitoring Suppl (FlipterUCH ULTRA 2) w/Device KIT Use to test [...] 08/09/2019 Active Vitamin D, Ergocalciferol, 1.25 MG (44675 UT) CapsuleIndications:V itamin D deficiency Take 1 [...] CKD stage 3 05/14/2019 Other atherosclerosis of [place] arteries of extremities, left leg 02/26/2019 Lumbar [...] 10/14/2014 Overview: ICD-10 update of inactive term Sandy filter in place 08/19/2014 History of pulmonary [...] Pulmonary Function West, [address] [place] [address] [phone] 09/27/2019 Office Visit Dermatology Apple Kaminski MD [address] [place] [address] [phone] 10/03/2019 Office Visit Gynecology Obstetrics Yumiko Cast [address] [place] [address] [phone] 10/09/2019 [facility] Visit [facility] Teddy Mccrary RN [address] [place] [address] [phone] 10/29/2019 Pharmacy Pharmacy [facility] [place] [address] [place] [address] 11/07/2019 Office Visit Family Medicine Kevin Whiteside DO [address] [place] [address] [phone] 02/26/2020 Office Visit Cardiology Rey Woodall MD [address] [place] [address] [phone] Health Maintenance Due Date Last Done Comments Zoster Vaccines (2 of 3) 02/05/2016 12/11/2015 PAP SMEAR-EVERY 3 YRS,AGES 21-65 05/11/2016 05/11/2013, 03/01/2008, 10/19/2006, Additional history exists CKD PHOS USE SMARTSET 83786 12/29/2018 04/01/2018, 08/26/2009, 08/25/2009, Additional history exists DIABETES-FOOT EXAM 01/02/2020 01/01/2019, 0 12/29/2017, 10/21/2016, Additional history exists DIABETES-HGBA1C EVERY 6 MONTHS 02/07/2020 08/09/2019, 03/14/2019, 09/27/2018, Additional history exists CKD GFR USE SMARTSET 88856 03/11/202009/10, 08/09/2019, 07/20/2019, Additional history exists Yearly B-12 03/14/2020 03/14/2019, 05/16/2018 DIABETES-EYE EXAM 04/05/2020 04/05/2019, (Done elsewhere), 12/18/2009, Additional history exists DIABETES-URINE MICROALBUMIN EVERY 12 MONTHS 05/24/2020 05/24/2019, 02/26/2019, 12/23/2018, Additional history exists BREAST CANCER SCREENING DISCUSSION YEARLY AGES 40-75 07/10/2020 07/10/2019, 06/23/2018, 05/09/2015, Additional history exists CKD HGB USE SMARTSET 75869 09/10/202009/10, 07/20/2019, 02/26/2019, Additional history exists Pneumococcal [...] on File Type Date Recorded Patient Sales 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 Aircraft Expl anation Advanced Directive 08/22/2009 12:00 AM [...]
--- OUTSIDE RECORDS SUMMARY | 2023-06-01 05:38 | External Medical Summary | Summary of Care ---
Author Name Unknown Organization [place] [address] Care Team Providers Care Route Delivery Driver Name Role Phone Migue Whiteside DO Primary Care Provider Reason for Visit * Reason Comments eRx-Medication Refill Encounter Details Date Type Department Care Team Description 09/13/[address] [facility] [address] [place] [address] Migue Whiteside DO [address] [facility] [place] [address] [phone] Allergies Active Allergy Reactions Severity Noted Date [...] goal below 130/80,Acute diastolic congestive heart failure ([facility]),Body mass index (BMI) of 50.0 to 59.9 in adult ([facility]),Hypoxemia,ELISSA (obstructive sleep apnea),HTN, goal below 140/80 [...] 08/09/2019 Active Vitamin D, Ergocalciferol, 1.25 MG (53469 UT) CapsuleIndications: Vitamin D deficiency Take 1 [...] PER DAY 30 mL 7 09/13/2019 Active insulin aspart (NOVOLOG) 100 UNIT/ML injection [...] CKD stage 3 05/14/2019 Other atherosclerosis of [place] arteries of extremities, left leg 02/26/2019 Lumbar [...] Telephone Encounter - Migue Whiteside DO - 09/13/2019 11:15 AM EST Signed Prescriptions: Disp Refills insulin aspart (INSULIN ASPART) 100 UNIT/M*30 mL 7 Sig: USE IN INSULIN PUMP UP TO 200 UNITS PER DAYAuthorizing Provider: MIGUE WHITESIDE documented in this encounter Plan of Treatment Upcoming Encounters Date Type Specialty Care Team Description 09/14/2019 PulmDiagnostic Pulmonary Function West, [address] [place] [address] [phone] 09/27/2019 Office Visit Dermatology Apple Kaminski MD [address] [place] [address] [phone] 10/03/2019 Office Visit Gynecology Obstetrics Yumiko [address] [address] [phone] 10/09/2019 Home Visit [facility] Teddy Mccrary RN [address] [place] [address] [phone] 10/29/2019 Pharmacy Pharmacy [facility] [place] [address] [place] [address] 11/07/2019 Office Visit Family Medicine Migue Whiteside DO [address] [place] [address] [phone] 02/26/2020 Office Visit Cardiology Rey Woodall MD [address] [place] [address] [phone] Health Maintenance Due Date Last Done Comments Zoster Vaccines (2 of 3) 02/05/2016 12/11/2015 PAP SMEAR-EVERY 3 YRS,AGES 21-65 05/11/2016 05/11/2013, 03/01/2008, 10/19/2006, Additional history exists CKD PHOS USE SMARTSET 29910 12/29/2018 04/01/2018, 08/26/2009, 08/25/2009, Additional history exists DIABETES-FOOT EXAM 01/02/2020 01/01/2019, 0 12/29/2017, 10/21/2016, Additional history exists DIABETES-HGBA1C EVERY 6 MONTHS 02/07/2020 08/09/2019, 03/14/2019, 09/27/2018, Additional history exists CKD GFR USE SMARTSET 58961 03/11/202009/10, 08/09/2019, 07/20/2019, Additional history exists Yearly B-12 03/14/2020 03/14/2019, 05/16/2018 DIABETES-EYE EXAM 04/05/2020 04/05/2019, (Done elsewhere), 12/18/2009, Additional history exists DIABETES-URINE MICROALBUMIN EVERY 12 MONTHS 05/24/2020 05/24/2019, 02/26/2019, 12/23/2018, Additional history exists BREAST CANCER SCREENING DISCUSSION YEARLY AGES 40-75 07/10/2020 07/10/2019, 06/23/2018, 05/09/2015, Additional history exists CKD HGB USE SMARTSET 81658 09/10/202009/10, 07/20/2019, 02/26/2019, Additional history exists Pneumococcal [...] Documents on File Type Date Recorded Patient Cloth Hand Expl 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
--- OUTSIDE RECORDS SUMMARY | 2023-06-01 05:38 | External Medical Summary ---
Author Name Unknown Address [facility] [place] [address] Phone Organization K01:[place] [address] [place] [id number] Laboratory Report Ordering Provider Test Date Status MABEL TAYLOR 09/10/2019 07:48:00 Final Observation Date Value Abnormality Reference (Units) Status Cryoglob Ser Ql 3D Cold Inc 09/14/2019 15:02 POSITIVE Abnormal XDET Final Cryocrit Ser Spun Westergren 09/14/2019 15:02 <5 <5 (%) Final Cryoglob Typ Ser MONA 09/14/2019 15:02 TYPE III MIXED POLYCLONAL CRYOGLOBULINS ARE PRESENT. Final Performing Location [facility] [address] [facility] [address]
--- OUTSIDE RECORDS SUMMARY | 2023-06-01 05:38 | External Medical Summary | Summary of Care ---
Author Name Unknown Organization [place] [address] Care Team Providers Care Irrigation Service Technician Name Role Phone Kevin Whitesidemelinda Primary Care Provider Reason for Visit * Reason Comments Pulmonary Function Test PFT with broncho dilator Oxygen Assessment 6 minute walk with t itration Encounter Details Date Type Department Care Team Description 09/14/2019 PulmDiagnostic Pulmonary Function Lab, [facility] [address] [place] [address] West, [address] [facility] [place] [address] [phone] Wheezing* Allergies Active Allergy Reactions Severity Noted Date Comments Pollen 05/18/2019 Heparin 09/04/2009 Heparin Induced Thrombocytopenia Empagliflozin Other (Please comment) Medium 05/17/2018 3 yeast infections in 6 weeks after starting Morphine And Related 09/16/1997 Hallucinations Tetanus Toxoid Other (Please comment) 06/15/2011 Passed out documented as of this encounter (statuses as of 09/14/2019) Medications Medication Sig Dispensed Refills Start Date [...] 5 01/01/2019 Active Blood Glucose Monitoring Suppl (Karos HealthTOUCH ULTRA 2) w/Device KIT Use to test [...] 08/09/2019 Active Vitamin D, Ergocalciferol, 1.25 MG (27503 UT) CapsuleIndications:V itamin D deficiency Take 1 [...] as of this encounter (statuses as of 09/14/2019) Active Problems Problem Noted Date 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, NYHA class 1 and CKD stage 3 05/14/2019 Other atherosclerosis of [place] arteries of extremities, left leg 02/26/2019 Lumbar [...] as of this encounter (statuses as of 09/14/2019) Resolved Problems Problem Noted Date Resolved Date [...] as of this encounter (statuses as of 09/14/2019) Immunizations Name Administration Dates Next Due Pneumococcal [...] Sign Reading Time Taken Comments Blood Pressure 130/80 09/14/2019 3:49 PM EST Pulse 114 09/14/2019 3:49 PM EST Temperature - - Respiratory Rate 20 09/14/2019 3:49 PM EST Oxygen Saturation 91% 09/14/2019 3:49 PM EST Inhaled Oxygen Concentration - - Weight 150.4 kg (331 lb 9.2 oz) 09/14/2019 3:49 PM EST Height 163.5 cm (5' 4.37") 09/14/2019 3:49 PM ES T Body Mass Index 56.26 09/14/2019 3:49 PM EST documented in this encounter Nursing Notes * Elida Claire, CURRICULUM DEVELOPER - 09/14/2019 4:03 PM EST Stephanie Camp was identified by name, Date of : (1955), and . Vitals were obtained for testing. BMI: 56.26 kg/m. Pt has a 1 ppd for 15 years smoking history. Pt wears CPAP@ HS with 2 liters bled in. Pt wears 2 liters with exertion and PRN. 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 Vasculitis currently and Strept infection per Dermatology. Spirometry, DLCO, and TGV performed. Spirometry performed before and after a slow volumenebulizer treatment of 1.25 mg Xopenex in 3 ml of NSS. The proper method of use, as well as anticipated side effects, of this svn are discussed and demonstrated to the patient. Patient demonstrates adequate delivery. Exercise oximetry performed on room air x 6 minutes. Pt ambulated with walker 615 feet/ 187 meters. No rest periods were required. Lowest SPO2 on room air was 85%. Pt placed on 2 liters. Pt used own tank. Exercise oximetry performed On 2 liters x 3 minutes. Pt ambulated 360 Feet/ 110 meters. No rest periods were required. Lowest SPO2 on liters was 89 %. Administrations This Visit levalbuterol (XOPENEX) inhalation solution 1.25 mg Admin Date 09/14/2019 Action Given Dose 1.25 mg Route Nebulizer Administered By Elida Claire RRT documented in this encounter Plan of Treatment Upcoming Encounters Date Type Specialty Care Team Description 09/27/2019 Office Visit Dermatology Apple Kaminski MD [address] [place] [address] [phone] 10/03/2019 Office Visit Gynecology Obstetrics Yumiko Cast, [facility] [address] [place] [address] [phone] 10/09/2019 Home Visit [facility] Teddy Mccrary RN [address] [facility] [place] [address] [phone] 10/29/2019 Pharmacy Pharmacy [facility] [place] [address] [place] [address] 11/07/2019 Office Visit Family Medicine Kevin Whiteside DO [address] [place] [address] [phone] 02/26/2020 Office Visit Cardiology Rey Woodall MD [address] [place] [address] [phone] Health Maintenance Due Date Last Done Comments Zoster Vaccines (2 of 3) 02/05/2016 12/11/2015 PAP SMEAR-EVERY 3 YRS,AGES 21-65 05/11/2016 05/11/2013, 03/01/2008, 10/19/2006, Additional history exists CKD PHOS USE SMARTSET 13635 12/29/2018 04/0 01/2018, 08/26/2009, 08/25/2009, Additional history exists DIABETES-FOOT EXAM 01/02/2020 01/01/2019, 0 12/29/2017, 10/21/2016, Additional history exists DIABETES-HGBA1C EVERY 6 MONTHS 02/07/2020 08/09/2019, 03/14/2019, 09/27/2018, Additional history exists CKD GFR USE SMARTSET 75130 03/11/202009/10, 08/09/2019, 07/20/2019, Additional history exists Yearly B-12 03/14/2020 03/14/2019, 05/16/2018 DIABETES-EYE EXAM 04/05/2020 04/05/2019, (Done elsewhere), 12/18/2009, Additional history exists DIABETES-URINE MICROALBUMIN EVERY 12 MONTHS 05/24/2020 05/24/2019, 02/26/2019, 12/23/2018, Additional history exists BREAST CANCER SCREENING DISCUSSION YEARLY AGES 40-75 07/10/2020 07/10/2019, 06/23/2018, 05/09/2015, Additional history exists CKD HGB USE SMARTSET 30082 09/10/202009/10, 07/20/2019, 02/26/2019, Additional history exists Pneumococcal [...] as of this encounter Visit Diagnoses Diagnosis Wheezing- Primary documented in this encounter Administered Medications Active Administered Medications - up to 3 most recent administrations Medication Order MAR Action Action Date Dose Rate Site levalbuterol (XOPENEX) inhalation solution 1.25 mg 1.25 mg, Nebulizer, Q4H PRN PFT ONCE, Starting Jeanette 09/13/19 at 1629, Until Discontinued Given 09/14/2019 3:43 PM EST 1.25 mg documented in this encounter Advance Directives Documents on File Type Date Recorded Patient Shift Mgr Expl 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
--- OUTSIDE RECORDS SUMMARY | 2023-06-01 05:38 | External Medical Summary ---
Author Name Unknown Address [address] [id number] Phone Organization K01:[facility] [address] [id number] Laboratory Report Ordering Provider Test Date Status MABEL TYALOR 09/10/2019 07:48:00 Final Observation Date Value Abnormality Reference Status Hep A IgM 09/10/2019 14:54 NEGATIVE NEG Fin al Hep B Core IgM 09/10/2019 14:54 NEGATIVE NEG Final Hep B surface Ag 09/10/2019 14:54 NEGATIVE NEG Final Hep C Ab 09/10/2019 14:54 NEGATIVE NEG Fin al Performing Location [facility] [address] [facility] [address]
--- OUTSIDE RECORDS SUMMARY | 2023-06-01 05:39 | External Medical Summary | Summary of Care ---
Author Name Unknown Organization [place] [address] Care Team Providers Care Clam Grader Name Role Phone Stevo Kevin Ocampomelinda Primary Care Provider Reason for Visit * Reason Comments Follow Up L knee Encounter Details Date Type Department Care Team Description 09/04/2019 Office Visit Orthopaedics [facility] [address] [place] [address] Zonia Cheema DO [address] [facility] [place] [address] [phone] Primary osteoarthritis of left knee* Allergies Active Allergy Reactions Severity Noted Date Comments Pollen 05/18/2019 Heparin 09/04/2009 Heparin Induced Thrombocytopenia Empagliflozin Other (Please comment) Medium 05/17/2018 3 yeast infections in 6 weeks after starting Morphine And Related 09/16/1997 Hallucinations Tetanus Toxoid Other (Please comment) 06/15/2011 Passed out documented as of this encounter (statuses as of 09/04/2019) Medications Medication Sig Dispensed Refills Start Date [...] 08/09/2019 Active Vitamin D, Ergocalciferol, 1.25 MG (14954 UT) CapsuleIndications:V itamin D deficiency Take 1 [...] OTHER MEDS 90 Tab 1 09/02/2019 Active Hospital, Clinic, or Other Facility Administered Medication Ordered Dose Route Frequency Start Date End Date Status sodium hyaluronate (GELSYN-3) 16.8 MG/2ML inj 16.8 mgIndications:Primary osteoarthritis of left knee 16.8 mg IX ONCE 09/04/2019 09/04/20 19 Ended documented as of this encounter (statuses as of 09/04/2019) Active Problems Problem Noted Date 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 She has noticed significant improvement with injection 1 and 2. She is pleased with her results thus far. Looking forward to today 's injection. No questions concerns or complaints otherwise today. Examination unchanged from previous office note and visit please see for further details and findings Impression left knee osteoarthritis Plan: Today 's findings were discussed with the patient. Ready to proceed for today 's 3rd injection of Gelsyn for the left knee. Time-out performed. Written consent on file. Patient seated and inferolateral approach was utilized for the left knee. Skin was cleansed with alcohol and chlorhexidine x2. Skin was anesthetized with ethyl chloride. I used 1 prepackaged syringes of Gelsyn-3 injected intra-articularly in left knee joint. Patient tolerated procedure very well. Free flowing through the joint. We will follow up in approximately 6 months to be re-evaluated and make sure the injection series was beneficial and potentially begin a new series of knee injections. Call sooner if needed. Sati sfied with today's care. This chart was completed in part utilizing Sqeeqee Speech Voice Recognition Software. Grammatical errors, random [...] documented in this encounter Nursing Notes * Lorraine Gorman TECH - 09/04/2019 9:42 AM EST Pt presents today for gelsyn 3 in L knee. JULIANNA Laura documented in this encounter Plan of Treatment Upcoming Encounters Date Type Specialty Care Team Description 09/05/2019 Office Visit Family Medicine Kriss Moyer PA-C [address] [place] [address] [address] [phone] 09/06/2019 Office Visit Pulmonary Celsa Tafoya CRNP [address] [place] [address] [address] [phone] 10/03/2019 Office Visit Gynecology Obstetrics Yumiko Cast CNM [address] [place] [address] [place] [address] [phone] 10/09/2019 Class 1 Owner [facility] Teddy Mccrary RN [address] [place] [address] [phone] 10/29/2019 Pharmacy Pharmacy [facility] [place] [address] [place] [address] 11/07/2019 Office Visit Family Medicine Kevin Whiteside DO [address] [place] [address] [address] [phone] 02/26/2020 Office Visit Cardiology Rey Woodall MD [address] [place] [address] [phone] Scheduled Orders Name Type Priority Associated Diagnoses Orde r Schedule ARTHROCENT ASP &/OR INJ MAJOR JX/BURSA W/O US Procedures Routine Primary osteoarthritis of left knee Ordered: 09/04/2019 Health Maintenance Due Date Last Done Comments Zoster Vaccines (2 of 3) 02/05/2016 12/11/2015 PAP SMEAR-EVERY 3 YRS,AGES 21-65 05/11/2016 05/11/2013, 03/01/2008, 10/19/2006, Additional history exists CKD PHOS USE SMARTSET 74305 12/29/2018 04/0 01/2018, 08/26/2009, 08/25/2009, Additional history exists DIABETES-FOOT EXAM 01/02/2020 01/01/2019, 0 12/29/2017, 10/21/2016, Additional history exists CKD GFR USE SMARTSET 76296 02/07/202008/09, 07/20/2019, 06/15/2019, Additional history exists DIABETES-HGBA1C EVERY 6 MONTHS 02/07/2020 08/09/2019, 03/14/2019, 09/27/2018, Additional history exists Yearly B-12 03/14/2020 03/14/2019, 05/16/2018 DIABETES-EYE EXAM 04/05/2020 04/05/2019, (Done elsewhere), 12/18/2009, Additional history exists DIABETES-URINE MICROALBUMIN EVERY 12 MONTHS 05/24/2020 05/24/2019, 02/26/2019, 12/23/2018, Additional history exists BREAST CANCER SCREENING DISCUSSION YEARLY AGES 40-75 07/10/2020 07/10/2019, 06/23/2018, 05/09/2015, Additional history exists CKD HGB USE SMARTSET 70312 07/20/202007/20, 02/26/2019, 12/23/2018, Additional history exists Pneumococcal [...] osteoarthrosis, lower leg documented in this encounter Administered Medications Inactive Administered Medications - up to 3 most recent administrations Medication Order MAR Action Action Date Dose Rate Site sodium hyaluronate (GELSYN-3) 16.8 MG/2ML inj 16.8 mg 16.8 mg, Intra-Articular, ONCE, 09/04/19 at 1045, For 1 dose Given 09/04/2019 10:13 AM EST 16.8 mg Knee Left documented in this encounter Advance Directives Documents on File Type Date Recorded Patient Director Sales Expl 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
--- OUTSIDE RECORDS SUMMARY | 2023-06-01 05:39 | External Medical Summary | Summary of Care ---
Author Name Unknown Organization [place] [address] Care Team Providers Care Advanced Manufacturing Technician Name Role Phone Stevo Kevin Ocampomelinda Primary Care Provider Reason for Visit * Reason Comments Follow Up L knee Encounter Details Date Type Department Care Team Description 09/04/2019 Office Visit Orthopaedics [facility] [address] [place] [address] Zonia Cheema DO [address] [facility] [place] [address] [phone] Primary osteoarthritis of left knee* Allergies Active [...] of 7.0%-8.0% ([facility]) Take 1 Cap by mouth 3 times a day. 270 Cap 5 01/01/2019 Active Blood Glucose Monitoring Suppl (ONETOUCH ULTRA 2) w/Device KIT Use to test BG values 1 Kit 0 01/26/2019 Active metoprolol tartrate (LOPRESSOR) 25 MG TabletIndications:HT N, goal below 130/80,Acute diastolic congestive heart failure (HCC),Body mass index (BMI) of 50.0 to 59.9 in adult ([facility]),Hypoxemia,ELISSA (obstructive sleep apnea),HTN, goal below 140/80 [...] 7.0%-8.0% ([facility]) Inject 0.5 mg under the skin [...] 08/09/2019 Active Vitamin D, Ergocalciferol, 1.25 MG (47157 UT) CapsuleIndications:V itamin D deficiency Take 1 [...] This chart was completed in part utilizing Sticky Speech Voice Recognition Software. Grammatical errors, random [...] Medicine Kriss Moyer PA-C [address] [address] [address] [phone] 09/06/2019 Office Visit Pulmonary Celsa Tafoya CRNP [address] [address] [phone] 10/03/2019 Office Visit Gynecology Obstetrics Yumiko Cast CNM [address] [place] [address] [place] [address] [phone] 10/09/2019 Master Yacht [facility] Teddy Mccrary RN [address] [address] [phone] 10/29/2019 Pharmacy Pharmacy [facility] [place] [address] [address] [address] 11/07/2019 Office Visit Family Medicine Kevin Whiteside DO [address] [place] [address] [address] [phone] 02/26/2020 Office Visit Cardiology Rey Woodall MD [address] [place] [address] [phone] Scheduled Orders Name Type Priority Associated Diagnoses Orde r Schedule ARTHROCENT ASP &/OR INJ MAJOR JX/BURSA W/O US Procedures Routine Primary osteoarthritis of left knee Ordered: 09/04/2019 Health Maintenance Due Date Last Done Comments Zoster Vaccines (2 of 3) 02/05/2016 12/11/2015 PAP SMEAR-EVERY 3 YRS,AGES 21-65 05/11/2016 05/11/2013, 03/01/2008, 10/19/2006, Additional history exists CKD PHOS USE SMARTSET 06171 12/29/2018 04/0 01/2018, 08/26/2009, 08/25/2009, Additional history exists DIABETES-FOOT EXAM 01/02/2020 01/01/2019, 0 12/29/2017, 10/21/2016, Additional history exists CKD GFR USE SMARTSET 24315 02/07/202008/09, 07/20/2019, 06/15/2019, Additional history exists DIABETES-HGBA1C EVERY 6 MONTHS 02/07/2020 08/09/2019, 03/14/2019, 09/27/2018, Additional history exists Yearly B-12 03/14/2020 03/14/2019, 05/16/2018 DIABETES-EYE EXAM 04/05/2020 04/05/2019, (Done elsewhere), 12/18/2009, Additional history exists DIABETES-URINE MICROALBUMIN EVERY 12 MONTHS 05/24/2020 05/24/2019, 02/26/2019, 12/23/2018, Additional history exists BREAST CANCER SCREENING DISCUSSION YEARLY AGES 40-75 07/10/2020 07/10/2019, 06/23/2018, 05/09/2015, Additional history exists CKD HGB USE SMARTSET 59514 07/20/202007/20, 02/26/2019, 12/23/2018, Additional history exists Pneumococcal [...] Documents on File Type Date Recorded Patient Water Resource Engineer Expl anation Advanced Directive 08/22/2009 12:00 [...]
--- OUTSIDE RECORDS SUMMARY | 2023-06-01 05:39 | External Medical Summary ---
Author Name Unknown Address [address] [id number] Phone Organization K01:[facility] [address] [id number] Laboratory Report Ordering Provider Test Date Status MABEL TAYLOR 09/10/2019 07:48:00 Final Observation Date Value Abnormality Reference Status Rheumatoid Factor 09/10/2019 14:37 <10 <14 Final Performing Location [facility] [address] [facility] [address]
--- OUTSIDE RECORDS SUMMARY | 2023-06-01 05:39 | External Medical Summary | Summary of Care ---
Author Name Unknown Organization [place] [address] Care Team Providers Care Rate Marker Name Role Phone Kevin Whiteside DO Primary Care Provider Encounter Details Date Type Department Care Team Description 08/29/2019 Home Visit [facility]KAYLA AT HOME [facility] [address] [facility] [place] [address] [facility] [address] [facility] [place] [address] [phone] Benign hypertensive heart and kidney disease with [...] as of this encounter (statuses as of 08/30/2019) Medications Medication Sig Dispensed Refills Start Date End Date Status PRILOSEC 20 MG PO CPDR one tablet daily 0 Active docusate sodium (STOOL SOFTENER) 100 MG Capsule Take 100 mg by mouth 2 times a day as needed for Constipation. 0 Active cyclobenzaprine (FLEXERIL) 10 MG Tablet TAKE ONE TABLET BY MOUTH AT BEDTIME NEEDED FOR MUSCLE SPASM 90 Tab 2 08/01/2018 Active levothyroxine (LEVOXYL) 200 MCG TabletIndications:Po stsurgical hypothyroidism TAKE ONE TABLET BY MOUTH ONE TIME DAILY at least 30 minutes prior to breakfast or other meds 90 Tab 5 08/01/2018 Active Nortriptyline HCl (PAMELOR) 50 MG [...] 5 01/01/2019 Active Blood Glucose Monitoring Suppl (wooju ULTRA 2) w/Device KIT Use to test BG values 1 Kit 0 01/26/2019 Active levothyroxine (LEVOXYL) 25 MCG TabletIndications:Po stsurgical hypothyroidism TAKE ONE TABLET BY MOUTH IN THE MORNING AT LEAST 30 MINUTES PRIOR TO BREAKFAST OR OTHER MEDS 30 Tab 5 02/02/2019 Active metoprolol tartrate (LOPRESSOR) 25 MG TabletIndications:HT N, goal below 130/80,Acute diastolic congestive heart failure (HCC),Body mass index (BMI) of 50.0 to 59.9 in adult ([facility]),Hypoxemia,ELISSA (obstructive sleep apnea),HTN, goal below 140/80 Take [...] 08/09/2019 Active Vitamin D, Ergocalciferol, 1.25 MG (13021 UT) CapsuleIndications:V itamin D deficiency Take 1 Cap by mouth every 4 weeks. 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, NYHA class 1 and CKD stage 3 05/14/2019 Other atherosclerosis of [place] arteries of extremities, left leg 02/26/2019 Lumbar [...] 10/14/2014 Overview: ICD-10 update of inactive term [place] filter in place 08/19/2014 History of pulmonary [...] as of this encounter (statuses as of 08/30/2019) Resolved Problems Problem Noted Date Resolved Date [...] as of this encounter (statuses as of 08/30/2019) Immunizations Name Administration Dates Next Due Pneumococcal [...] Progress Notes * [facility] - 08/29/2019 3:13 PM EST Per intake Brianna Luther this visit was to take a photo of a "rash" that pt suddenly got yesterday andtext pictures to Brian LLAMAS. Pictures taken and sent to PA and RNCM. Per PA Brian Jones doesn't look like zack. Pt not having any pain/itching/swelling/fever. This LES will call tomorrow to check on any spreading or further symptoms. If so then will scheduleher with RN on Tuesday. Pt's RNCM informed of above. documented in this encounter Plan of Treatment Upcoming Encounters Date Type Specialty Care Team Description 09/04/2019 Office Visit Orthopedics Zonia Cheema, DO [address] [place] [address] [phone] 09/06/2019 Office Visit Pulmonary Celsa Tafoya CRNP [address] [place] [address] [address] [phone] 10/03/2019 Office Visit Gynecology Obstetrics Yumiko Cast, [address] [place] [address] [phone] 10/09/2019 Infection Control [facility]n [facility] Teddy Mccrary RN [address] [place] [address] [phone] 10/29/2019 Pharmacy Pharmacy [facility] [address] [place] [address] 11/07/2019 Office Visit Family Medicine Kevin Whiteside DO [address] [place] [address] [address] [phone] 02/26/2020 Office Visit Cardiology Rey Woodall MD [address] [place] [address] [address] [phone] Health Maintenance Due Date Last Done Comments PAP SMEAR-EVERY 3 YRS,AGES 21-65 05/11/2016 05/11/2013, 03/01/2008, 10/19/2006, Additional history exists CKD PHOS USE SMARTSET 87274 12/29/2018 04/01/2018, 08/26/2009, 08/25/2009, Additional history exists DIABETES-FOOT EXAM 01/02/2020 01/01/2019, 0 12/29/2017, 10/21/2016, Additional history exists CKD GFR USE SMARTSET 63154 02/07/202008/09, 07/20/2019, 06/15/2019, Additional history exists DIABETES-HGBA1C EVERY 6 MONTHS 02/07/2020 08/09/2019, 03/14/2019, 09/27/2018, Additional history exists Yearly B-12 03/14/2020 03/14/2019, 05/16/2018 DIABETES-EYE EXAM 04/05/2020 04/05/2019, (Done elsewhere), 12/18/2009, Additional history exists DIABETES-URINE MICROALBUMIN EVERY 12 MONTHS 05/24/2020 05/24/2019, 02/26/2019, 12/23/2018, Additional history exists BREAST CANCER SCREENING DISCUSSION YEARLY AGES 40-75 07/10/2020 07/10/2019, 06/23/2018, 05/09/2015, Additional history exists CKD HGB USE SMARTSET 16272 07/20/202007/20, 02/26/2019, 12/23/2018, Additional history exists Pneumococcal [...] Documents on File Type Date Recorded Patient Travel Agency Manager Expl anation Advanced Directive 08/22/2009 12:00 [...]
--- OUTSIDE RECORDS SUMMARY | 2023-06-01 05:39 | External Medical Summary | Summary of Care ---
Author Name Unknown Organization [place] [address] Care Team Providers Care Plaster And Stucco Worker Name Role Phone Stevo Migue Ocampomelinda Primary Care Provider Reason for Visit * Reason Comments eRx-Medication Refill Encounter Details Date Type Department Care Team Description 08/31/2019 Refill Family Practice [facility] [address] [place] [address] Luis M Chappell MD [address] [place] [id number] POSTSURGICAL HYPOTHYROID Allergies Active Allergy Reactions Severity Noted Date Comments Pollen 05/18/2019 Heparin 09/04/2009 Heparin Induced Thrombocytopenia Empagliflozin Other (Please comment) Medium 05/17/2018 3 yeast infections in 6 weeks after starting Morphine And Related 09/16/1997 Hallucinations Tetanus Toxoid Other (Please comment) 06/15/2011 Passed out documented as of this encounter (statuses as of 09/02/2019) Medications Medication Sig Dispensed Refills Start Date [...] 5 01/01/2019 Active Blood Glucose Monitoring Suppl (PocketGuideUCH ULTRA 2) w/Device KIT Use to test BG values 1 Kit 0 01/26/2019 Active metoprolol tartrate (LOPRESSOR) 25 MG TabletIndications:H TN, goal below 130/80,Acute diastolic congestive heart failure ([facility]),Body mass index (BMI) of 50.0 to 59.9 [...] 08/09/2019 Active Vitamin D, Ergocalciferol, 1.25 MG (62049 UT) CapsuleIndications: Vitamin D deficiency Take 1 [...] OTHER MEDS 90 Tab 1 09/02/2019 Active levothyroxine (LEVOXYL) 25 MCG TabletIndications:P ostsurgical hypothyroidism TAKE ONE TABLET BY MOUTH IN THE MORNING AT LEAST 30 MINUTES PRIOR TO BREAKFAST OR OTHER MEDS 30 Tab 5 02/02/2019 9 Discontinu ed(Refill) documented as of this encounter (statuses as of 09/02/2019) Active Problems Problem Noted Date 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, NYHA class 1 and CKD stage 3 05/14/2019 Other atherosclerosis of [place] arteries of extremities, left leg 02/26/2019 Lumbar [...] goal below 130/80 02/22/2014 Venous insufficiency 02/07/2013 EILSSA (obstructive sleep apnea) 09/16/2011 Overview: CPAP 11 [...] as of this encounter (statuses as of 09/02/2019) Resolved Problems Problem Noted Date Resolved Date [...] as of this encounter (statuses as of 09/02/2019) Immunizations Name Administration Dates Next Due Pneumococcal [...] encounter Miscellaneous Notes * Telephone Encounter - Luz Jurado [facility] - 09/02/2019 1:51 PM EST Signed Prescriptions: Disp Refills levothyroxine (LEVOXYL) 25 MCG Tablet 90 Tab 1 Sig: TAKE ONE TABLET BY MOUTH IN THE MORNING AT LEAST 30 MINUTES PRIOR TO BREAKFAST OR OTHER MEDSAuthorizing Provider: MIGUE WHITESIDE User: LUZ JURADO documented in this encounter Plan of Treatment Upcoming Encounters Date Type Specialty Care Team Description 09/04/2019 Office Visit Orthopedics Zonia Cheema DO [address] [place] [address] [address] [phone] 09/06/2019 Office Visit Pulmonary Celsa Tafoya CRNP [address] [place] [address] [phone] 10/03/2019 Office Visit Gynecology Obstetrics Yumiko Cast, [address] [place] [address] [phone] 10/09/2019 Pmp Certified Project Manager [facility] Teddy Mccrary RN [address] [place] [address] [phone] 10/29/2019 Pharmacy Pharmacy [facility] [address] [place] [address] 11/07/2019 Office Visit Family Medicine Migue Whiteside DO [address] [place] [address] [phone] 02/26/2020 Office Visit Cardiology Rey Woodall MD [address] [place] [address] [phone] Health Maintenance Due Date Last Done Comments PAP SMEAR-EVERY 3 YRS,AGES 21-65 05/11/2016 05/11/2013, 03/01/2008, 10/19/2006, Additional history exists CKD PHOS USE SMARTSET 70058 12/29/2018 04/01/2018, 08/26/2009, 08/25/2009, Additional history exists DIABETES-FOOT EXAM 01/02/2020 01/01/2019, 0 12/29/2017, 10/21/2016, Additional history exists CKD GFR USE SMARTSET 66472 02/07/202008/09, 07/20/2019, 06/15/2019, Additional history exists DIABETES-HGBA1C EVERY 6 MONTHS 02/07/2020 08/09/2019, 03/14/2019, 09/27/2018, Additional history exists Yearly B-12 03/14/2020 03/14/2019, 05/16/2018 DIABETES-EYE EXAM 04/05/2020 04/05/2019, (Done elsewhere), 12/18/2009, Additional history exists DIABETES-URINE MICROALBUMIN EVERY 12 MONTHS 05/24/2020 05/24/2019, 02/26/2019, 12/23/2018, Additional history exists BREAST CANCER SCREENING DISCUSSION YEARLY AGES 40-75 07/10/2020 07/10/2019, 06/23/2018, 05/09/2015, Additional history exists CKD HGB USE SMARTSET 41078 07/20/202007/20, 02/26/2019, 12/23/2018, Additional history exists Pneumococcal [...] on File Type Date Recorded Patient Plant Protection Supervisor Expl anation Advanced Directive 08/22/2009 12:00 [...]
--- OUTSIDE RECORDS SUMMARY | 2023-06-01 05:39 | External Medical Summary | Summary of Care ---
Author Name Unknown Organization [place] [address] Care Team Providers Care Retail Field Supervisor Name Role Phone Whiteside Kevin Ocampomelinda Primary Care Provider Reason for Visit * Reason Comments Follow Up Left Knee Encounter Details Date Type Department Care Team Description 08/28/2019 Office Visit Orthopaedics [facility] [address] [place] [address] Zonia Cheema DO [address] [facility] [place] [address] [phone] Primary osteoarthritis of left knee* Allergies Active Allergy Reactions Severity Noted Date Comments Pollen 05/18/2019 Heparin 09/04/2009 Heparin Induced Thrombocytopenia Empagliflozin Other (Please comment) Medium 05/17/2018 3 yeast infections in 6 weeks after starting Morphine And Related 09/16/1997 Hallucinations Tetanus Toxoid Other (Please comment) 06/15/2011 Passed out documented as of this encounter (statuses as of 08/28/2019) Medications Medication Sig Dispensed Refills Start Date [...] 5 01/01/2019 Active Blood Glucose Monitoring Suppl (eMazeMe ULTRA 2) w/Device KIT Use to test [...] 08/09/2019 Active Vitamin D, Ergocalciferol, 1.25 MG (05089 UT) CapsuleIndications:V itamin D deficiency Take 1 Cap by mouth every 4 weeks. 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 DM type 2, not at goal 05/29/2002200 9 Overview: Modified per Diabetes protocol #14. TENOSYNOVITIS FOOT-ANKLE 12/26/2001 017 Goiter 01/13/2000 06/28/2011 BACKACHE NOS 08/26/1999 05/24/2017 OBESITY, UNSPECIFIED 08/26/1999 12/23/2009 Overview: Per Obesity Taxonomy Perforation of intestine 017 Overview: COLON Diverticulitis documented as of this encounter (statuses as of 08/28/2019) Immunizations Name Administration Dates Next Due Pneumococcal [...] as of this encounter Progress Notes * Zonia Cheema DO - 08/28/2019 7:57 AM EST CLINIC NOTES Orthopaedics [facility] [address] [place] [address] Stephanie Camp [id number] ORTHOPAEDIC SURGERY OUTPATIENT NOTE 08/28/2019 HISTORY: Patient presents for her 2nd Gelsyn injection. She has noticed mild improvement in her knee discomfort. Past Medical History: Diagnosis Date ELSIE (acute kidney injury) (HCC) 06/12/2018 Allergic rhinitis due to other allergen Backache Diverticulosis of colon 01/28/06 DM type 2, not at goal ([facility]) ELLIE (generalized anxiety disorder) 09/13/2009 Goiter Frank [...] A1c goal of 7.0%-8.0% ([facility]) 10/14/2014 ICD-10 update of inactive term Vaginal karmen 07/13/2018 Past Surgical History: Procedure Laterality Date ARTHROPLASTY KNEE TOTAL Right 07/24/14 R COLONOSCOPY, DIAGNOSTIC (RECTUM) 02/18/2016 normal, repeat 10 yrs/[facility] COLONOSCOPY, GI REFERRAL OP 01/28/06 diverticulosis--repeat 10 years INCISION OF WIN[place], PLANNED 06/03/2011 TRACHEOSTOMY PLANNED performed by DANNY HOLDER at [facility] KNEE ARTHROSCOPY/DEBRIDEMENT 07/[address] PERMANENT GASTROSTOMY TUBE 09/06/09 GASTROSTOMY WITH CONSTUCTION GASTRIC TUBE performed by AMADOU NUNEZ at [facility] REMOVAL OF THYROID GLAND 06/15/2011 THYROIDECTOMY INCLUDING SUBSTERNAL THYROID CERVICAL APPROACH performed by DANNY HOLDER at [facility] REMOVE GALLBLADDER 09/06/09 CHOLECYSTECTOMY performed by AMADOU NUNEZ at [facility] REPAIR RECURRENT INCISIONAL HERNIA 1998 REVISION OF COLOSTOMY, SIMPLE 1998 SUTURE, LARGE INTESTINE W/COLOSTOMY 1996 perforation R colon with colostomy VENA CAVA FILTER/LIGATION/CLIP 08/19/09 Frank filter placement through the right femoral 08/19/[address] 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 Employer: [employer] Social Needs Financial resource strain: Not on file Food insecurity: Worry: Not on file Inability: Not on file Transportation needs: Medical: Not on file Non-medical: Not on file Tobacco Use Smoking status: Former Smoker Packs/day: 1.00 Years: 15.00 Pack years: 15.00 Last attempt to quit: 08/26/1997 Years since quittin.0 Smokeless tobacco: Never Used Substance and Sexual Activity Alcohol use: Yes Comment: rare Drug use: No Sexual activity: Not on file Lifestyle Physical activity: Days per week: Not on file Minutes per session: Not on file Stress: Not on file Relationships Social connections: Talks on phone: Not on file Gets together: Not on file Attends mandaeism service: Not on file Active member of [...] 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 Ok to substitute Fastclix lancets, if needed. BLOOD GLUCOSE MONITORING SUPPL (eMazeMe ULTRA 2) W/DEVICE KIT Use to test BG values CLOBETASOL PROPIONATE (TEMOVATE) 0.05 % OINTMENT Apply topically to affected area 2 times a day. Toaffected area for up to two weeks. CLONAZEPAM (KLONOPIN) 0.5 MG TABLET TAKE ONE TABLET BY MOUTH TWICE DAILY CYCLOBENZAPRINE (FLEXERIL) 10 MG TABLET TAKE ONE TABLET BY MOUTH AT BEDTIME NEEDED FOR MUSCLE SPASM DOCUSATE SODIUM (STOOL SOFTENER) 100 MG CAPSULE Take 100 mg by mouth 2 times a day as needed for Constipation. DULOXETINE (CYMBALTA) 30 MG CPEP Take 1 Cap by mouth daily. Take along with the 60mg dose for totally of 90mg daily. Do not cut, crush or chew DULOXETINE (CYMBALTA) 60 MG CPEP Take 1 Cap by mouth daily. Do not cut, crush or chew FUROSEMIDE (LASIX) 40 MG TABLET Take 40 mg by mouth daily. GABAPENTIN (NEURONTIN) 300 MG CAPSULE Take 1 Cap by mouth 3 times a day. GLUCOSE BLOOD (ACCU-CHEK HARRIS PLUS) STRP Test sugar 3-4 times a day. GLUCOSE BLOOD (ONETOUCH ULTRA BLUE) STRP Check sugars 3-4 times daily INSULIN ASPART (NOVOLOG) 100 UNIT/ML INJECTION Use in insulin pump up to 200 units daily INSULIN PEN NEEDLE (BD PEN NEEDLE SHORT U/F) 31G X 8 MM Use 5 times daily with insulin LEVOTHYROXINE (LEVOXYL) 200 MCG TABLET TAKE ONE TABLET BY MOUTH ONE TIME DAILY at least 30 minutes prior to breakfast or other meds LEVOTHYROXINE (LEVOXYL) 25 MCG TABLET TAKE ONE TABLET BY MOUTH IN THE MORNING AT LEAST 30 MINUTES PRIOR TO BREAKFAST OR OTHER MEDS MAGNESIUM OXIDE 400 (241.3 MG) TABLET Take 400 mg by mouth daily. METOPROLOL TARTRATE (LOPRESSOR) 25 MG TABLET Take 0.5 Tabs by mouth 2 times a day. NORTRIPTYLINE HCL (PAMELOR) 50 MG CAPSULE Take 1 Cap by mouth at bedtime. ONETOUCH DELICA LANCETS 33G MISC Check blood sugars 3-4 times daily OXYGEN GAS 2 L/min(Oxygen). 2 LPM bled through CPAP 11 cwp during all periods of sleep. PRILOSEC 20 MG PO CPDR one tablet daily ROPINIROLE (REQUIP) 2 MG TABLET Take 1 Tab by mouth at bedtime. SEMAGLUTIDE,0.25 OR 0.5MG/DOS, (OZEMPIC, 0.25 OR 0.5 MG/DOSE,) 2 MG/1.5ML SOPN Inject 0.5 mg under the skin once a week. SPIRONOLACTONE (ALDACTONE) 25 MG TABLET Take 1 Tab by mouth daily. TRAMADOL (ULTRAM) 50 MG TABLET Take 1 Tab by mouth every 8 hours as needed for Pain, Severe. TRAZODONE (DESYREL) 50 MG TABLET Take 1 Tab by mouth at bedtime. VITAMIN D, ERGOCALCIFEROL, 1.25 MG (55705 UT) CAPSULE Take 1 Cap by mouth every 4 weeks. Modified Medications No medications on file Discontinued Medications No medications on file Review of patient's allergies indicates: Allergen Reactions Jardiance [Empagliflozin] Other (Please comment) 3 yeast infections in 6 weeks after starting Hay Fever [Pollen] Heparin Heparin Induced Thrombocytopenia Morphine And Related Hallucinations Tetanus Toxoid Other (Please comment) Passed out LMP 03/11/2003 REVIEW OF SYSTEMS: Constitutional: Negative. HEENT: Negative. Respiratory: Negative. Skin: Negative. Neurological: Negative. Psychiatric/Behavioral: Negative. Musculoskeletal: Negative except for that mentioned in the HPI. Using ChloraPrep and alcohol swabs the anterolateral aspect of the left knee was prepped. Using a 22 gauge needle Gelsyn was injected into the intra-articular space of the knee. The patient toleratedthe injection well. ASSESSMENT AND PLAN: 64-year-old female with left knee osteoarthritis. The patient follow up for her 3rd and final gels injection next week. documented in this encounter Nursing Notes * Stephon Villela ATC - 08/28/2019 7:57 AM EST Pt reports for follow up Re: L Knee. Patient reports Gelsyn shot made it feel better off and on. PQ: 01/03. Stephon Villela ATC documented in this encounter Plan of Treatment Upcoming Encounters Date Type Specialty Care Team Description 09/04/2019 Office Visit Orthopedics Zonia Cheema DO [address] [place] [address] [phone] 09/06/2019 Office Visit Pulmonary Celsa Tafoya CRNP [address] [place] [address] [address] [phone] 10/03/2019 Office Visit Gynecology Obstetrics Yumiko Cast CNM [address] [place] [address] [place] [address] [phone] 10/29/2019 Pharmacy Pharmacy Danuta Ordaz [facility] [address] [place] [address] 11/07/2019 Office Visit Family Medicine Kevin Whiteside DO [address] [place] [address] [address] [phone] 02/26/2020 Office Visit Cardiology Rey Woodall MD [address] [place] [address] [phone] Scheduled Orders Name Type Priority Associated Diagnoses Orde r Schedule ARTHROCENT ASP &/OR INJ MAJOR JX/BURSA W/O US Procedures Routine Primary osteoarthritis of left knee Ordered: 08/28/2019 Health Maintenance Due Date Last Done Comments PAP SMEAR-EVERY 3 YRS,AGES 21-65 05/11/2016 05/11/2013, 03/01/2008, 10/19/2006, Additional history exists CKD PHOS USE SMARTSET 43421 12/29/201801/2018, 08/26/2009, 08/25/2009, Additional history exists DIABETES-FOOT EXAM 01/02/2020 01/01/2019, 0 12/29/2017, 10/21/2016, Additional history exists CKD GFR USE SMARTSET 76051 02/07/202008/09, 07/20/2019, 06/15/2019, Additional history exists DIABETES-HGBA1C EVERY 6 MONTHS 02/07/2020 08/09/2019, 03/14/2019, 09/27/2018, Additional history exists Yearly B-12 03/14/2020 03/14/2019, 05/16/2018 DIABETES-EYE EXAM 04/05/2020 04/05/2019, (Done elsewhere), 12/18/2009, Additional history exists DIABETES-URINE MICROALBUMIN EVERY 12 MONTHS 05/24/2020 05/24/2019, 02/26/2019, 12/23/2018, Additional history exists BREAST CANCER SCREENING DISCUSSION YEARLY AGES 40-75 07/10/2020 07/10/2019, 06/23/2018, 05/09/2015, Additional history exists CKD HGB USE SMARTSET 75987 07/20/202007/20, 02/26/2019, 12/23/2018, Additional history exists Pneumococcal [...] inj 16.8 mg 16.8 mg, Intra-Articular, ONCE, 08/28/19 at 1145, For 1 dose Given 08/28/2019 11:13 AM EST 16.8 mg Knee Left documented in this encounter Advance Directives Documents on File Type Date Recorded Patient Pipeline Executive Expl anation Advanced Directive 08/22/2009 12:00 [...]
--- OUTSIDE RECORDS SUMMARY | 2023-06-01 05:39 | External Medical Summary | Summary of Care ---
Author Name Unknown Organization [place] [address] Care Team Providers Care Head Of Quality Name Role Phone Whiteside Kevin Ocampomelinda Primary Care Provider Reason for Visit * Reason Comments Follow Up Left Knee Encounter Details Date Type Department Care Team Description 08/28/2019 Office Visit Orthopaedics [facility] [address] [place] [address] Zonia Cehema DO [address] [facility] [place] [address] [phone] Primary osteoarthritis of left knee* Allergies Active [...] 5 01/01/2019 Active Blood Glucose Monitoring Suppl (A's Child ULTRA 2) w/Device KIT Use to test [...] 08/09/2019 Active Vitamin D, Ergocalciferol, 1.25 MG (25641 UT) CapsuleIndications:V itamin D deficiency Take 1 [...] CKD stage 3 05/14/2019 Other atherosclerosis of [place] arteries of extremities, left leg 02/26/2019 [...] 10/14/2014 Overview: ICD-10 update of inactive term [place] filter in place 08/19/2014 History of pulmonary [...] 08/28/2019 7:57 AM EST CLINIC NOTES Orthopaedics [facility] [address] [facility] [place] [address] Stephanie Camp [id number] 1955 ORTHOPAEDIC SURGERY OUTPATIENT NOTE 08/28/2019 HISTORY: Patient presents for her 2nd Gelsyn injection. She has noticed mild improvement in her knee discomfort. Past Medical History: Diagnosis Date ELSIE (acute kidney injury) (HCC) 06/12/2018 Allergic rhinitis due to other allergen Backache Diverticulosis of colon 01/28/06 DM type 2, not at goal ([facility]) ELLIE (generalized anxiety disorder) 09/13/2009 [...] goal of 7.0%-8.0% ([facility]) 10/14/2014 ICD-10 update of inactive term Vaginal karemn 07/13/2018 Past Surgical History: Procedure Laterality Date ARTHROPLASTY KNEE TOTAL Right 07/24/14 R COLONOSCOPY, DIAGNOSTIC (RECTUM) 02/18/2016 normal, repeat 10 yrs/[facility] COLONOSCOPY, GI REFERRAL OP 01/28/06 diverticulosis--repeat 10 years INCISION OF [place], PLANNED 06/03/2011 TRACHEOSTOMY PLANNED performed by DANNY HOLDER at [facility] KNEE ARTHROSCOPY/DEBRIDEMENT 07/[address] PERMANENT GASTROSTOMY TUBE 09/06/09 GASTROSTOMY WITH CONSTUCTION GASTRIC TUBE performed by AMADOU NUNEZ at [facility] REMOVAL OF THYROID GLAND 06/15/2011 THYROIDECTOMY INCLUDING SUBSTERNAL THYROID CERVICAL APPROACH performed by DANNY HOLDER at [facility] REMOVE GALLBLADDER 09/06/09 CHOLECYSTECTOMY performed by AMADOU NUNEZ at [facility] REPAIR RECURRENT INCISIONAL HERNIA 1998 REVISION OF COLOSTOMY, SIMPLE 1998 SUTURE, LARGE INTESTINE W/COLOSTOMY 1996 perforation R colon with colostomy VENA CAVA FILTER/LIGATION/CLIP 08/19/09 Frank filter placement through the right femoral 08/19/[address] 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 BLOOD GLUCOSE MONITORING SUPPL (A's Child ULTRA 2) W/DEVICE KIT Use to test [...] at bedtime. VITAMIN D, ERGOCALCIFEROL, 1.25 MG (62278 UT) CAPSULE Take 1 Cap by mouth [...] Orthopedics Zonia Cheema DO [address] [place] [address] [phone] 09/06/2019 Office Visit Pulmonary Celsa Tafoya CRNP [address] [place] [address] [phone] 10/03/2019 Office Visit Gynecology Obstetrics Yumiko Cast CNM [address] [place] [address] [place] [address] [phone] 10/29/2019 Pharmacy Pharmacy Dan[facility] Ord[facility] [place] [address] [place] [address] 11/07/2019 Office Visit Family Medicine Kevin Whiteside DO [address] [place] [address] [phone] 02/26/2020 Office Visit Cardiology Rey Woodall MD [address] [place] [address] [phone] Scheduled Orders Name Type Priority Associated Diagnoses Orde r Schedule ARTHROCENT ASP &/OR INJ MAJOR JX/BURSA W/O US Procedures Routine Primary osteoarthritis of left knee Ordered: 08/28/2019 Health Maintenance Due Date Last Done Comments PAP SMEAR-EVERY 3 YRS,AGES 21-65 05/11/2016 05/11/2013, 03/01/2008, 10/19/2006, Additional history exists CKD PHOS USE SMARTSET 20285 12/29/201801/2018, 08/26/2009, 08/25/2009, Additional history exists DIABETES-FOOT EXAM 01/02/2020 01/01/2019, 0 12/29/2017, 10/21/2016, Additional history exists CKD GFR USE SMARTSET 00083 02/07/202008/09, 07/20/2019, 06/15/2019, Additional history exists DIABETES-HGBA1C EVERY 6 MONTHS 02/07/2020 08/09/2019, 03/14/2019, 09/27/2018, Additional history exists Yearly B-12 03/14/2020 03/14/2019, 05/16/2018 DIABETES-EYE EXAM 04/05/2020 04/05/2019, (Done elsewhere), 12/18/2009, Additional history exists DIABETES-URINE MICROALBUMIN EVERY 12 MONTHS 05/24/2020 05/24/2019, 02/26/2019, 12/23/2018, Additional history exists BREAST CANCER SCREENING DISCUSSION YEARLY AGES 40-75 07/10/2020 07/10/2019, 06/23/2018, 05/09/2015, Additional history exists CKD HGB USE SMARTSET 52794 07/20/202007/20, 02/26/2019, 12/23/2018, Additional history exists Pneumococcal [...] Documents on File Type Date Recorded Patient Knife Setter Grinder Machine Expl anation Advanced Directive 08/22/2009 12:00 AM [...]
--- OUTSIDE RECORDS SUMMARY | 2023-06-01 05:39 | External Medical Summary | Summary of Care ---
Author Name Unknown Organization [place] [address] Care Team Providers Care It Solutions Architect Name Role Phone Whiteside Kevin Ocampomelinda Primary Care Provider Reason for Visit * Reason Comments [facility]: Maintenance Encounter Details Date Type Department Care Team Description 08/28/2019 Home Visit [facility] [address] [facility] [place] [address] Teddy Mccrary, RN [address] [facility] [place] [address] [phone] Benign hypertensive heart and kidney disease with [...] 5 01/01/2019 Active Blood Glucose Monitoring Suppl (Oncolytics BiotechUCH ULTRA 2) w/Device KIT Use to test [...] 08/09/2019 Active Vitamin D, Ergocalciferol, 1.25 MG (03049 UT) CapsuleIndications:V itamin D deficiency Take 1 Cap by mouth every 4 weeks. 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, NYHA class 1 and CKD stage 3 05/14/2019 Other atherosclerosis of [place] arteries of extremities, left leg 02/26/2019 Lumbar [...] 10/14/2014 Overview: ICD-10 update of inactive term [place] filter in place 08/19/2014 History of pulmonary embolus (PE) 2013 Statin intolerance 07/16/2014 HTN, goal below 130/80 02/22/2014 Venous insufficiency 02/07/2013 ELISSA (obstructive sleep apnea) 09/16/2011 Overview: CPAP 11 cwp Mild, AHI 11.3 but with significant nocturnal hypoxemia Dicks Nocturnal hypoxemia 07/22/2011 Overview: Nocturnal ox 2 LPM 07/20/11 -- mean 84%, low 76%, time <89% 6:21 hours, TNIY 47 DHC Postsurgical hypothyroidism 06/16/2011 ELLIE (generalized [...] Sign Reading Time Taken Comments Blood Pressure 125/76 08/28/2019 11:53 AM EST Pulse 84 08/28/2019 11:53 AM EST Temperature 36 C (96.8 F) 08/28/2019 11:53 AM EST Respiratory Rate 20 08/28/2019 11:53 AM EST Oxygen Saturation 93% 08/28/2019 11:53 AM EST room air Inhaled Oxygen Concentration - - Weight - - Height - - Body Mass Index - - documented in this encounter Progress Notes * Teddy Mccrary RN - 08/28/2019 11:43 AM EST [facility] Custom Studio Coordinator Monthly Visit Date: 08/28/2019 Time: 11:52 AM Name: Stephanie Camp : 1955 Current Concerns: Driving Diagnoses for [facility] Enrollment:O2 dependent,CHF,ELISSA, T2DM,Obesity,CKD Seeing pt today for routine return visit. No c/o's today. Pt had injection into arthrtic left knee this morning at [facility] by ortho, and is in some discomfort from that. T2DM: Pt just met with [facility] yesterday. Using Ozempic 0.5 plus insulin pump for her Novolog. Testing fingerstick glucose 3-4 times daily. Spoke with Rose, discussed upcoming switch of GLP agonist rel/to insurance plan. Discussed possibility of titrating dose of Ozempic from 0.5 mg to 1.0 mg. Pt and Rose to discuss at next visit. Pt has no inhalers on med list, and no diagnosis of asthma or COPD on Epic list, despite hx smokingand pt being O2 dependent. Pt reports she thinks she had albuterol in the past and "it made me very hyper" Physical Exam: [facility] 03/11/2003 Pain 6 Physical Exam HENT: Nose: Congestion ("everything gets plugged up and its hard to breathe") present. Cardiovascular: Rate and Rhythm: Normal rate and regular rhythm. Pulmonary: Effort: No respiratory distress. Breath sounds: Wheezing (Few expiratory sheezes right base) present. No rhonchi or rales. Comments: Pulse ox between 89-93% on room air Abdominal: General: Bowel sounds are normal. Palpations: Abdomen is soft. Tenderness: There is no tenderness. Musculoskeletal: General: Tenderness (right lower fuentes slightly tender) present. Right lower leg: Edema (trace at most) present. Left lower leg: Edema (trace at most) present. Skin: General: Skin is warm. Findings: No bruising. Comments: Had injection into Left knee this morning. Site is without redness or drainage. Pt reports dome pain in Left knee from injection. Neurological: General: No focal deficit present. Mental Status: Mental status is at baseline. Psychiatric: Mood and Affect: Mood normal. Problems/Symptoms: Review of Systems HENT: Positive for congestion. Respiratory: Negative for cough and shortness of breath. Cardiovascular: Negative for chest pain and leg swelling. Gastrointestinal: Negative. Genitourinary: Negative. Musculoskeletal: Positive for arthralgias. Neurological: Negative. Psychiatric/Behavioral: Negative. Medication Reconciliation: (See medication list) Does patient take medications as ordered: Yes Patient Well Being: PHQ2/9: @[id number]@ Stable today. Nothing acute going on Has the patient been feeling optimistic about the future?: Yes (06/20/2019 12:00 PM) Advanced Care Planning: Not addressed this visit Patient's Goals of Care: 1. Less pain in left knee 2. Maintain fluid balance 3. Continue to breathe better Reinforcement/Education: Reinforced medication regimen. Timing. Treatment/Plan: Treatment(s) Given: Evaluation Patient's 'Red Flags': 4. Worsening pain 5. Worsening fluid balance 6. Worsening breathing/wheezing Patient Needs to Remember: Call [facility] for red flags Follow Up: Patient encouraged to call the intake phone number for all urgent but not emergent issues. Is the patient new to [facility] within the last 30 days? No I am Scheduled to follow up with patient in 6 weeks Teddy Mccrary RN 08/28/2019 11:52 AM documented in this encounter Plan of Treatment Upcoming Encounters Date Type Specialty Care Team Description 09/04/2019 Office Visit Orthopedics Zonia Cheema, [address] [place] [address] [phone] 09/06/2019 Office Visit Pulmonary Celsa Tafoya CRNP [address] [place] [address] [phone] 10/03/2019 Office Visit Gynecology Obstetrics Yumiko Cast [address] [place] [address] [phone] 10/09/2019 Custom Studio Coordinator [facility] Teddy Mccrary RN [address] [place] [address] [phone] 10/29/2019 Pharmacy Pharmacy [facility] [address] [place] [address] 11/07/2019 Office Visit Family Medicine Kevin Whiteside, [address] [place] [address] [phone] 02/26/2020 Office Visit Cardiology Rey Woodall MD [address] [place] [address] [phone] Health Maintenance Due Date Last Done Comments PAP SMEAR-EVERY 3 YRS,AGES 21-65 05/11/2016 05/11/2013, 03/01/2008, 10/19/2006, Additional history exists CKD PHOS USE SMARTSET 37854 12/29/2018 04/0 01/2018, 08/26/2009, 08/25/2009, Additional history exists DIABETES-FOOT EXAM 01/02/2020 01/01/2019, 0 12/29/2017, 10/21/2016, Additional history exists CKD GFR USE SMARTSET 78755 02/07/202008/09, 07/20/2019, 06/15/2019, Additional history exists DIABETES-HGBA1C EVERY 6 MONTHS 02/07/2020 08/09/2019, 03/14/2019, 09/27/2018, Additional history exists Yearly B-12 03/14/2020 03/14/2019, 05/16/2018 DIABETES-EYE EXAM 04/05/2020 04/05/2019, (Done elsewhere), 12/18/2009, Additional history exists DIABETES-URINE MICROALBUMIN EVERY 12 MONTHS 05/24/2020 05/24/2019, 02/26/2019, 12/23/2018, Additional history exists BREAST CANCER SCREENING DISCUSSION YEARLY AGES 40-75 07/10/2020 07/10/2019, 06/23/2018, 05/09/2015, Additional history exists CKD HGB USE SMARTSET 48927 07/20/202007/20, 02/26/2019, 12/23/2018, Additional history exists Pneumococcal [...] Documents on File Type Date Recorded Patient Magazine Repairer Expl anation Advanced Directive 08/22/2009 12:00 [...]
--- OUTSIDE RECORDS SUMMARY | 2023-06-01 05:39 | External Medical Summary | Summary of Care ---
Author Name Unknown Organization [place] [address] Care Team Providers Care Sample Finisher Name Role Phone Stevo Kevin Ocampomelinda Primary Care Provider Reason for Visit * Reason Comments Follow Up L knee Encounter Details Date Type Department Care Team Description 09/04/2019 Office Visit Orthopaedics [facility] [address] [place] [address] Zonia Cheema DO [address] [facility] [place] [address] [phone] Primary osteoarthritis of left knee* Allergies Active [...] 50.0 to 59.9 in adult ([facility]),Hypoxemia,ELISSA (obstructive sleep apnea),HTN, goal below [...] goal of 7.0%-8.0% ([facility]) Inject 0.5 mg under the skin once [...] 08/09/2019 Active Vitamin D, Ergocalciferol, 1.25 MG (36717 UT) CapsuleIndications:V itamin D deficiency Take 1 [...] CKD stage 3 05/14/2019 Other atherosclerosis of [place] arteries of extremities, left leg 02/26/2019 Lumbar [...] This chart was completed in part utilizing [employer] Speech Voice Recognition Software. Grammatical errors, random [...] Medicine Kriss Moyer PA-C [address] [place] [address] [phone] 09/06/2019 Office Visit Pulmonary Celsa Tafoya CRNP [address] [place] [address] [phone] 10/03/2019 Office Visit Gynecology Obstetrics Yumiko Cast CNM [address] [place] [address] [place] [address] [phone] 10/09/2019 Independent Living Specialist [facility] Teddy Mccrary RN [address] [place] [address] [phone] 10/29/2019 Pharmacy Pharmacy [facility] [place] [address] [place] [address] 11/07/2019 Office Visit Family Medicine Kevin Whiteside DO [address] [place] [address] [phone] 02/26/2020 Office Visit Cardiology Rey Woodall MD [address] [place] [address] [phone] Scheduled Orders Name Type Priority Associated Diagnoses Orde r Schedule ARTHROCENT ASP &/OR INJ MAJOR JX/BURSA W/O US Procedures Routine Primary osteoarthritis of left knee Ordered: 09/04/2019 Health Maintenance Due Date Last Done Comments Zoster Vaccines (2 of 3) 02/05/2016 12/11/2015 PAP SMEAR-EVERY 3 YRS,AGES 21-65 05/11/2016 05/11/2013, 03/01/2008, 10/19/2006, Additional history exists CKD PHOS USE SMARTSET 73357 12/29/2018 04/0 01/2018, 08/26/2009, 08/25/2009, Additional history exists DIABETES-FOOT EXAM 01/02/2020 01/01/2019, 0 12/29/2017, 10/21/2016, Additional history exists CKD GFR USE SMARTSET 58783 02/07/202008/09, 07/20/2019, 06/15/2019, Additional history exists DIABETES-HGBA1C EVERY 6 MONTHS 02/07/2020 08/09/2019, 03/14/2019, 09/27/2018, Additional history exists Yearly B-12 03/14/2020 03/14/2019, 05/16/2018 DIABETES-EYE EXAM 04/05/2020 04/05/2019, (Done elsewhere), 12/18/2009, Additional history exists DIABETES-URINE MICROALBUMIN EVERY 12 MONTHS 05/24/2020 05/24/2019, 02/26/2019, 12/23/2018, Additional history exists BREAST CANCER SCREENING DISCUSSION YEARLY AGES 40-75 07/10/2020 07/10/2019, 06/23/2018, 05/09/2015, Additional history exists CKD HGB USE SMARTSET 79330 07/20/202007/20, 02/26/2019, 12/23/2018, Additional history exists Pneumococcal [...] on File Type Date Recorded Patient Manager Financial Reporting Expl anation Advanced Directive 08/22/2009 12:00 AM [...]
--- OUTSIDE RECORDS SUMMARY | 2023-06-01 05:39 | External Medical Summary | Summary of Care ---
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 Pt reports that it is the same. Not spreading and no issues. Pt will call if anything changes. Reinforced plan of care. Patient verbalized understanding. Explained/reinforced role of [facility] Steelscope Operator. Encouraged to call with any issues or concerns. Gave 833 number and contact information. documented in this encounter Plan of Treatment Upcoming Encounters Date Type Specialty Care Team Description 09/04/2019 Office Visit Orthopedics Zonia Cheema, [address] [place] [address] [phone] 09/06/2019 Office Visit Pulmonary Celsa Tafoya CRNP [address] [place] [address] [phone] 10/03/2019 Office Visit Gynecology Obstetrics Yumiko Cast CNM [address] [place] [address] [place] [address] [phone] 10/09/2019 Stud Dairy Cattle Farmer [facility] Teddy Mccrary RN [address] [place] [address] [phone] 10/29/2019 Pharmacy Pharmacy [facility] [place] [address] [place] [address] 11/07/2019 Office Visit Family Medicine Kevin Whiteside DO [address] [place] [address] [phone] 02/26/2020 Office Visit Cardiology Rey Woodall MD [address] [place] [address] [phone] Health Maintenance Due Date Last Done Comments PAP SMEAR-EVERY 3 YRS,AGES 21-65 05/11/2016 05/11/2013, 03/01/2008, 10/19/2006, Additional history exists CKD PHOS USE SMARTSET 39428 12/29/2018 04/0 01/2018, 08/26/2009, 08/25/2009, Additional history exists DIABETES-FOOT EXAM 01/02/2020 01/01/2019, 0 12/29/2017, 10/21/2016, Additional history exists CKD GFR USE SMARTSET 46351 02/07/202008/09, 07/20/2019, 06/15/2019, Additional history exists DIABETES-HGBA1C EVERY 6 MONTHS 02/07/2020 08/09/2019, 03/14/2019, 09/27/2018, Additional history exists Yearly B-12 03/14/2020 03/14/2019, 05/16/2018 DIABETES-EYE EXAM 04/05/2020 04/05/2019, (Done elsewhere), 12/18/2009, Additional history exists DIABETES-URINE MICROALBUMIN EVERY 12 MONTHS 05/24/2020 05/24/2019, 02/26/2019, 12/23/2018, Additional history exists BREAST CANCER SCREENING DISCUSSION YEARLY AGES 40-75 07/10/2020 07/10/2019, 06/23/2018, 05/09/2015, Additional history exists CKD HGB USE SMARTSET 48762 07/20/202007/20, 02/26/2019, 12/23/2018, Additional history exists Pneumococcal [...] on File Type Date Recorded Patient Industrial Laborer Expl anation Advanced Directive 08/22/2009 12:00 [...]
--- OUTSIDE RECORDS SUMMARY | 2023-06-01 05:39 | External Medical Summary | Summary of Care ---
Author Name Unknown Organization [place] [address] Care Team Providers Care Rehabilitation Program Coordinator Name Role Phone Kevin Whitesidemelinda Primary Care Provider Reason for Visit * Reason Comments Rash Encounter Details Date Type Department Care Team Description 08/28/2019 Telephone [facility] [address] [place] [address] Mina Jones PA-C [address] [place] [address] [phone] Rash Allergies Active Allergy Reactions Severity Noted Date [...] 5 01/01/2019 Active Blood Glucose Monitoring Suppl ([employer] ULTRA 2) w/Device KIT Use to test [...] 08/09/2019 Active Vitamin D, Ergocalciferol, 1.25 MG (45479 UT) CapsuleIndications:V itamin D deficiency Take 1 Cap by mouth every 4 weeks. 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 No new soaps etc Rash is not itchy or raised No oral paresthesias, throat closure, able to swallow w/o difficulty, no shortness of breath/cp. Aside from the rash is doing well. Will request LES make a visit tomorrow and take a picture. See nursing note from this encounter documented in this encounter Plan of Treatment Upcoming Encounters Date Type Specialty Care Team Description 08/29/2019 Home Visit [facility] Saira Salmon, [facility] Linoleum Layer Helper [address] [facility] [place] [address] [phone] 09/04/2019 Office Visit Orthopedics Zonia Cheema, DO [address] [place] [address] [phone] 09/06/2019 Office Visit Pulmonary Celsa Tafoya CRNP [address] [place] [address] [phone] 10/03/2019 Office Visit Gynecology Obstetrics Yumiko Cast, [address] [place] [address] [phone] 10/09/2019 Student Services Advisor [facility] Teddy Mccrary RN [address] [place] [id number] 10/29/2019 Pharmacy Pharmacy [facility] [address] [place] [address] 11/07/2019 Office Visit Family Medicine Kevin Whiteside, [address] [place] [address] [phone] 02/26/2020 Office Visit Cardiology Rey Woodall MD [address] [place] [address] [phone] Health Maintenance Due Date Last Done Comments PAP SMEAR-EVERY 3 YRS,AGES 21-65 05/11/2016 05/11/2013, 03/01/2008, 10/19/2006, Additional history exists CKD PHOS USE SMARTSET 60028 12/29/2018 04/0 01/2018, 08/26/2009, 08/25/2009, Additional history exists DIABETES-FOOT EXAM 01/02/2020 01/01/2019, 0 12/29/2017, 10/21/2016, Additional history exists CKD GFR USE SMARTSET 21764 02/07/202008/09, 07/20/2019, 06/15/2019, Additional history exists DIABETES-HGBA1C EVERY 6 MONTHS 02/07/2020 08/09/2019, 03/14/2019, 09/27/2018, Additional history exists Yearly B-12 03/14/2020 03/14/2019, 05/16/2018 DIABETES-EYE EXAM 04/05/2020 04/05/2019, (Done elsewhere), 12/18/2009, Additional history exists DIABETES-URINE MICROALBUMIN EVERY 12 MONTHS 05/24/2020 05/24/2019, 02/26/2019, 12/23/2018, Additional history exists BREAST CANCER SCREENING DISCUSSION YEARLY AGES 40-75 07/10/2020 07/10/2019, 06/23/2018, 05/09/2015, Additional history exists CKD HGB USE SMARTSET 47944 07/20/202007/20, 02/26/2019, 12/23/2018, Additional history exists Pneumococcal [...] Documents on File Type Date Recorded Patient Buckle Frame Shaper Expl anation Advanced Directive 08/22/2009 12:00 AM [...]
--- OUTSIDE RECORDS SUMMARY | 2023-06-01 05:39 | External Medical Summary | Summary of Care ---
Author Name Unknown Organization [place] [address] Care Team Providers Care Upper Cutter Out Name Role Phone Migue Whiteside DO Primary Care Provider Reason for Visit * Reason Comments eRx-Medication Refill Encounter Details Date Type Department Care Team Description 08/31/2019 Refill Family Practice [facility] [address] [place] [address] Migue Whiteside DO [address] [facility] [place] [address] [phone] POSTSURGICAL HYPOTHYROID Allergies Active Allergy Reactions Severity [...] of 7.0%-8.0% ([facility]) Take 1 Cap by mouth 3 times a day. 270 Cap 5 01/01/2019 Active Blood Glucose Monitoring Suppl (K1 SpeedUCH ULTRA 2) w/Device KIT Use to test BG values 1 Kit 0 01/26/2019 Active metoprolol tartrate (LOPRESSOR) 25 MG TabletIndications:H TN, goal below 130/80,Acute diastolic congestive heart failure ([facility]),Body mass index (BMI) of 50.0 to 59.9 in adult ([facility]),Hypoxemia,ELISSA (obstructive sleep apnea),HTN, goal below [...] 7.0%-8.0% ([facility]) Inject 0.5 mg under the [...] 08/09/2019 Active Vitamin D, Ergocalciferol, 1.25 MG (10972 UT) CapsuleIndications: Vitamin D deficiency Take 1 Cap by mouth every 4 weeks. 13 Cap 0 08/24/2019 Active levothyroxine (LEVOXYL) 200 MCG TabletIndications:P ostsurgical hypothyroidism TAKE ONE TABLET BY MOUTH EVERY DAY AT LEAST 30 MINUTES BEFORE BREAKFAST OR OTHER MEDS 90 Tab 4 09/02/2019 Active levothyroxine (LEVOXYL) 200 MCG TabletIndications:P ostsurgical hypothyroidism TAKE ONE TABLET BY MOUTH ONE TIME DAILY at least 30 minutes prior to breakfast or other meds 90 Tab 5 08/01/2018 9 Discontinu ed(Refill) levothyroxine (LEVOXYL) 25 MCG TabletIndications:P ostsurgical hypothyroidism [...] CKD stage 3 05/14/2019 Other atherosclerosis of [place] arteries of extremities, left leg 02/26/2019 Lumbar [...] 10/14/2014 Overview: ICD-10 update of inactive term [place] filter in place 08/19/2014 History of pulmonary [...] Notes * Telephone Encounter - Luz Jurado [facility] - 09/02/2019 1:48 PM EST Signed Prescriptions: Disp Refills levothyroxine (LEVOXYL) 200 MCG Tablet 90 Tab 4 Sig: TAKE ONE TABLET BY MOUTH EVERY DAY AT LEAST 30 MINUTES BEFORE BREAKFAST OR OTHER MEDSAuthorizing Provider: MIGUE WHITESIDE User: LUZ JURADO documented in this encounter Plan of Treatment Upcoming Encounters Date Type Specialty Care Team Description 09/04/2019 Office Visit Orthopedics Zonia Cheema DO [address] [place] [address] [phone] 09/06/2019 Office Visit Pulmonary Celsa Tafoya CRNP [address] [place] [address] [phone] 10/03/2019 Office Visit Gynecology Obstetrics Yumiko Cast, [facility] [address] [facility] [place] [address] [phone] 10/09/2019 [facility]cc[facility] [address] [place] [address] 10/29/2019 Pharmacy Pharmacy [facility] [address] [place] [address] 11/07/2019 Office Visit Family Medicine Migue Whiteside DO [address] [place] [address] [phone] 02/26/2020 Office Visit Cardiology Rey Woodall MD [address] [place] [address] [phone] Health Maintenance Due Date Last Done Comments PAP SMEAR-EVERY 3 YRS,AGES 21-65 05/11/2016 05/11/2013, 03/01/2008, 10/19/2006, Additional history exists CKD PHOS USE SMARTSET 39922 12/29/2018 0401/2018, 08/26/2009, 08/25/2009, Additional history exists DIABETES-FOOT EXAM 01/02/2020 01/01/2019, 0 12/29/2017, 10/21/2016, Additional history exists CKD GFR USE SMARTSET 94581 02/07/202008/09, 07/20/2019, 06/15/2019, Additional history exists DIABETES-HGBA1C EVERY 6 MONTHS 02/07/2020 08/09/2019, 03/14/2019, 09/27/2018, Additional history exists Yearly B-12 03/14/2020 03/14/2019, 05/16/2018 DIABETES-EYE EXAM 04/05/2020 04/05/2019, (Done elsewhere), 12/18/2009, Additional history exists DIABETES-URINE MICROALBUMIN EVERY 12 MONTHS 05/24/2020 05/24/2019, 02/26/2019, 12/23/2018, Additional history exists BREAST CANCER SCREENING DISCUSSION YEARLY AGES 40-75 07/10/2020 07/10/2019, 06/23/2018, 05/09/2015, Additional history exists CKD HGB USE SMARTSET 12675 07/20/202007/20, 02/26/2019, 12/23/2018, Additional history exists Pneumococcal [...] Documents on File Type Date Recorded Patient Waterproofer 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
--- OUTSIDE RECORDS SUMMARY | 2023-06-01 05:39 | External Medical Summary | Summary of Care ---
Author Name Unknown Organization [place] [address] Care Team Providers Care Adjuster Piano Action Name Role Phone Kevin Whiteside DO Primary Care Provider Reason for Referral * Evaluate & Treat - Unlimited Visits (Within 3 days (urgent)) Status Reason Specialty Diagnoses / Procedures Referred By Contact Referred To Contact Authorized Specialty Services Required Dermatology Diagnoses Rash and nonspecific skin eruption Kriss Moyer PA-C [address] [facility] [place] [address] Reason for Visit * Reason Comments Other pt c/o pain L nare x 7 days. Encounter Details Date Type Department Care Team Description 09/05/[address] [facility] [address] [place] [address] Kriss Moyer PA-C [address] [facility] [place] [address] [phone] Nostril sore*; Rash and nonspecific skin eruption; Type 2 diabetes mellitus with hemoglobin A1c goal of 7.0%-8.0% ([facility]) Allergies Active Allergy Reactions Severity Noted Date Comments Pollen 05/18/2019 Heparin 09/04/2009 Heparin Induced Thrombocytopenia Empagliflozin Other (Please comment) Medium 05/17/2018 3 yeast infections in 6 weeks after starting Morphine And Related 09/16/1997 Hallucinations Tetanus Toxoid Other (Please comment) 06/15/2011 Passed out documented as of this encounter (statuses as of 09/05/2019) Medications Medication Sig Dispensed Refills Start Date [...] 5 01/01/2019 Active Blood Glucose Monitoring Suppl (QuiklyTOUCH ULTRA 2) w/Device KIT Use to test [...] 08/09/2019 Active Vitamin D, Ergocalciferol, 1.25 MG (34895 UT) CapsuleIndications:V itamin D deficiency Take 1 [...] gone 14 Tab 0 09/05/2019 9 Active documented as of this encounter (statuses as of 09/05/2019) Active Problems Problem Noted Date 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, NYHA class 1 and CKD stage 3 05/14/2019 Other atherosclerosis of [place] arteries of extremities, left leg 02/26/2019 Lumbar [...] as of this encounter (statuses as of 09/05/2019) Resolved Problems Problem Noted Date Resolved Date [...] as of this encounter (statuses as of 09/05/2019) Immunizations Name Administration Dates Next Due Pneumococcal [...] Sign Reading Time Taken Comments Blood Pressure 126/76 09/05/2019 8:20 AM EST Pulse 80 09/05/2019 8:20 AM EST Temperature 36 C (96.8 F) 09/05/2019 8:20 AM EST Respiratory Rate - - Oxygen Saturation - - Inhaled Oxygen Concentration - - Weight - - Height - - Body Mass Index - - documented in this encounter Progress Notes * Kriss Moyer PA-C - 09/05/2019 8:25 AM EST SUBJECTIVE: CC: Stephanie Camp is a 64 year old female who presents with for left nostril sore. HPI: Patient states that for last week she has had sore area of left nostril. Says that over last couple days pain is progressing over left cheek. No sinus congestion, sinus drainage, fever, chills, redness, skin changes, cough. No h/o MRSA. Several hospitalizations in lifetime. Patient has h/o diabetes- following with [facility], has insulin pump. At present insulin is not well controlled. Lower leg rash- ongoing for years. Has seen Dermatology SP in past for this, several biopsies inconclusive. Over last 2 weeks rash is returning, ws resolved for 6 + months. Mild itching with rash. CBC in Jun showed normal H/H. [facility] ROS: See HPI for pertinent positive and negatives No sinus congestion, sinus drainage, fever, chills, redness, skin changes, cough. HISTORY: Past Medical History: Diagnosis Date ELSIE (acute kidney injury) (HCC) 06/12/2018 Allergic rhinitis due to other allergen Backache Diverticulosis of colon 01/28/06 DM type 2, not at goal (HCC) ELLIE (generalized anxiety disorder) 09/13/2009 Goiter [place] filter in place 08/19/2014 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HCC) [...] DIAGNOSTIC (RECTUM) 02/18/2016 normal, repeat 10 yrs/[facility] COLONOSCOPY, GI REFERRAL OP 01/28/06 diverticulosis--repeat 10 years INCISION OF [place], PLANNED 06/03/2011 TRACHEOSTOMY PLANNED performed by DANNY HOLDER at [facility] KNEE ARTHROSCOPY/DEBRIDEMENT 07/[address] PERMANENT GASTROSTOMY TUBE 09/06/09 GASTROSTOMY WITH CONSTUCTION GASTRIC TUBE performed by AMADOU NUNEZ at [facility] REMOVAL OF THYROID GLAND 06/15/2011 THYROIDECTOMY INCLUDING SUBSTERNAL THYROID CERVICAL APPROACH performed by DANNY HOLDER at [facility] REMOVE GALLBLADDER 09/06/09 CHOLECYSTECTOMY performed by AMADOU NUNEZ at [facility] REPAIR RECURRENT INCISIONAL HERNIA 1998 REVISION OF COLOSTOMY, SIMPLE 1998 SUTURE, LARGE INTESTINE W/COLOSTOMY 1996 perforation R colon with colostomy VENA CAVA FILTER/LIGATION/CLIP 08/19/09 Frank filter placement through the right femoral 08/19/[address] Lerma [address] [facility] Social History Tobacco Use Smoking status: Former Smoker Packs/day: 1.00 Years: 15.00 Pack years: 15.00 Last attempt to quit: 08/26/1997 Years since quittin.0 Smokeless tobacco: Never Used Substance Use Topics Alcohol use: Yes Comment: rare Drug use: No Family History Problem Relation Age of Onset Cancer Father lung - age 74 (smoker) Cancer Mother liver - age 45 Heart Disorder Brother age 45 - possible tumor Diabetes Grandmother (Paternal) Cancer Grandfather (Paternal) bone ca - in 70's Outpatient Medications Marked as Taking for the 09/05/19 encounter (Office Visit) with Kriss Moyer PA-C Medication Sig levothyroxine (LEVOXYL) 25 MCG Tablet TAKE ONE TABLET BY MOUTH IN THE MORNING AT LEAST 30 MINUTES PRIOR TO BREAKFAST OR OTHER MEDS Vitamin D, Ergocalciferol, 1.25 MG (96117 UT) Capsule Take 1 Cap by mouth [...] during all periods of sleep. Glucose Blood ([employer] ULTRA BLUE) STRP Check sugars 3-4 times daily traZODone (DESYREL) 50 MG Tablet Take 1 Tab by mouth at bedtime. insulin aspart (NOVOLOG) 100 UNIT/ML injection Use in insulin pump up to 200 units daily rOPINIRole (REQUIP) 2 MG Tablet Take 1 Tab by mouth at bedtime. clobetasol propionate (TEMOVATE) 0.05 % ointment Apply topically to affected area 2 times a day. To affected area for up to two weeks. metoprolol tartrate (LOPRESSOR) 25 MG Tablet Take 0.5 Tabs by mouth 2 times a day. gabapentin (NEURONTIN) 300 MG Capsule Take 1 Cap by mouth 3 times a day. DULoxetine (CYMBALTA) 60 MG CPEP Take 1 Cap by mouth daily. Do not cut, crush or chew cyclobenzaprine (FLEXERIL) 10 MG Tablet TAKE ONE TABLET BY MOUTH AT BEDTIME NEEDED FOR MUSCLE SPASM Nortriptyline HCl (PAMELOR) 50 MG Capsule Take 1 Cap by mouth at bedtime. docusate sodium (STOOL SOFTENER) 100 MG Capsule Take 100 mg by mouth 2 times a day as needed for Constipation. PRILOSEC 20 MG PO CPDR one tablet daily Current Facility-Administered Medications for the 09/05/19 encounter (Office Visit) with Kriss Moyer PA-C Medication [COMPLETED] sodium hyaluronate (GELSYN-3) 16.8 MG/2ML inj 16.8 mg Review of patient's allergies indicates: Allergen Reactions Jardiance [Empagliflozin] Other (Please comment) 3 yeast infections in 6 weeks after starting Hay Fever [Pollen] Heparin Heparin Induced Thrombocytopenia Morphine And Related Hallucinations Tetanus Toxoid Other (Please comment) Passed out OBJECTIVE: BP 126/76 | Pulse 80 | Temp (Src) 96.8 (Tympanic) | LMP 03/11/2003 General appearance: awake, alert, no apparent distress, cooperative Nose: no mucosal edema, no purulent discharge, left inner nares with 3 mm ulceration on lateral side Mouth: no exudate, no erythema, lips, buccal mucosa, and tongue normal and mucous membranes are moist Neck: supple, no adenopathy, thyroid normal size, non-tender, without nodularity Heart: regular rate & rhythm Skin: + several 1 mm erythematous papules scattered over lower legs, non- blanching. Other skin color, texture, turgor are normal ASSESSMENT/PLAN: Nostril sore (Primary) - mupirocin calcium (BACTROBAN) 2 % ointment; Apply topically to affected area 3 times a day for 14days. Apply to affected area. - sulfamethoxazole-trimethoprim DS (BACTRIM DS) 800-160 MG per tablet; Take 1 Tab by mouth 2 times a day for 7 days. Until gone Rash and nonspecific skin eruption - DERMATOLOGY REFERRAL OP- biopsies in past inconclusive, recommend f/u with derm Type 2 diabetes mellitus with hemoglobin A1c goal of 7.0%-8.0% ([facility]) - Hold on any prednisone, following with [facility], poorly controlled Patients goals for plan of care were discussed. Follow up: Instructed to follow up or notify Primary Care Provider if no better in: 2-3 day(s), andto ER immediately if signs and symptoms worsen. Kriss Moyer PA-C [facility] [address] [facility] [place], [address] documented in this encounter Nursing Notes * Charissa Scanlon LPN - 09/05/2019 8:20 AM EST The patient has been properly identified by confirmation of name and date of . Chief Complaint Patient presents with Other pt c/o pain L nare x 7 days. documented in this encounter Plan of Treatment Upcoming Encounters Date Type Specialty Care Team Description 09/06/2019 Office Visit Pulmonary Celsa Tafoya CRNP [address] [place] [address] [phone] 09/10/2019 Office Visit Dermatology Apple Kaminski MD [address] [place] [address] [phone] 10/03/2019 Office Visit Gynecology Obstetrics Yumiko Cast [facility] [address] [place] [address] [phone] 10/09/2019 Fabric Cutter [facility] Teddy Mccrary RN [address] [place] [address] [phone] 10/29/2019 Pharmacy Pharmacy [facility] [address] [place] [address] 11/07/2019 Office Visit Family Medicine Kevin Whiteside DO [address] [place] [address] [phone] 02/26/2020 Office Visit Cardiology Rey Woodall MD [address] [place] [phone] Scheduled Referrals Name Type Priority Associated Diagnoses Orde r Schedule DERMATOLOGY REFERRAL OP Referral Within 3 days (urgent) Rash and nonspecific skin eruption Ordered: 09/05/2019 Health Maintenance Due Date Last Done Comments Zoster Vaccines (2 of 3) 02/05/2016 12/11/2015 PAP SMEAR-EVERY 3 YRS,AGES 21-65 05/11/2016 05/11/2013, 03/01/2008, 10/19/2006, Additional history exists CKD PHOS USE SMARTSET 13527 12/29/2018 04/0 01/2018, 08/26/2009, 08/25/2009, Additional history exists DIABETES-FOOT EXAM 01/02/2020 01/01/2019, 0 12/29/2017, 10/21/2016, Additional history exists CKD GFR USE SMARTSET 77677 02/07/202008/09, 07/20/2019, 06/15/2019, Additional history exists DIABETES-HGBA1C EVERY 6 MONTHS 02/07/2020 08/09/2019, 03/14/2019, 09/27/2018, Additional history exists Yearly B-12 03/14/2020 03/14/2019, 05/16/2018 DIABETES-EYE EXAM 04/05/2020 04/05/2019, (Done elsewhere), 12/18/2009, Additional history exists DIABETES-URINE MICROALBUMIN EVERY 12 MONTHS 05/24/2020 05/24/2019, 02/26/2019, 12/23/2018, Additional history exists BREAST CANCER SCREENING DISCUSSION YEARLY AGES 40-75 07/10/2020 07/10/2019, 06/23/2018, 05/09/2015, Additional history exists CKD HGB USE SMARTSET 07640 07/20/202007/20, 02/26/2019, 12/23/2018, Additional history exists Pneumococcal [...] as of this encounter Visit Diagnoses Diagnosis Nostril sore- Primary Other diseases of nasal cavity and sinuses Rash and nonspecific skin eruption Rash and other nonspecific skin eruption Type 2 diabetes mellitus with hemoglobin A1c goal of 7.0%-8.0% ([facility]) documented in this encounter Advance Directives Documents on File Type Date Recorded 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
--- OUTSIDE RECORDS SUMMARY | 2023-06-01 05:40 | External Medical Summary ---
Author Name Unknown Address [facility] [place] [address] Phone Organization K01:[place] [address] [place] [id number] Laboratory Report Ordering Provider Test Date Status HENRRY TOBARE 07/23/2019 16:38:00 Final Observation Date Value Abnormality Reference Status Bacteria/area UmS Auto 07/23/2019 21:48 >200 Abnormal IRH222 Final WBC No./area UrnS Auto 07/23/2019 21:48 3-5 Abnormal U02 Final RBC No./area UrnS Auto 07/23/2019 21:48 3-5 Abnormal U02 Final Performing Location [facility] [address] [facility] [address]
--- OUTSIDE RECORDS SUMMARY | 2023-06-01 05:40 | External Medical Summary | Summary of Care ---
Author Name Unknown Organization [place] [address] Care Team Providers Care Medical Esthetician Name Role Phone Whiteside Kevin Ocampomelinda Primary Care Provider Reason for Visit * Reason Comments Medication Question Encounter Details Date Type Department Care Team Description 05/01/2019 Telephone Pharmacy, [facility] [address] [facility] [place] [address] [facility] [place] [id number] Medication Question Allergies Active Allergy Reactions Severity Noted Date Comments Pollen 05/18/2019 Heparin 09/04/2009 Heparin Induced Thrombocytopenia Empagliflozin Other (Please comment) Medium 05/17/2018 3 yeast infections in 6 weeks after starting Morphine And Related 09/16/1997 Hallucinations Tetanus Toxoid Other (Please comment) 06/15/2011 Passed out documented as of this encounter (statuses as of 08/17/2019) Medications Medication Sig Dispensed Refills Start Date [...] 5 01/01/2019 Active Blood Glucose Monitoring Suppl (MicroJob ULTRA 2) w/Device KIT Use to test [...] 30 Tab 5 04/04/2019 Active Glucose Blood (G2 MicrosystemsUCH ULTRA BLUE) STRP Check sugars 3-4 times daily 400 Strip 2 04/21/2019 Active documented as of this encounter (statuses as of 08/17/2019) Active Problems Problem Noted Date 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, NYHA class 1 and CKD stage 3 05/14/2019 Other atherosclerosis of [place] arteries of extremities, left leg 02/26/2019 Lumbar [...] 10/14/2014 Overview: ICD-10 update of inactive term [place] filter in place 08/19/2014 History of pulmonary [...] as of this encounter (statuses as of 08/17/2019) Resolved Problems Problem Noted Date Resolved Date [...] as of this encounter (statuses as of 08/17/2019) Immunizations Name Administration Dates Next Due Pneumococcal Polysaccharide PPV23 (Pneumovax) 08/22/2009,06/15/2006 Seasonal Influenza, Quadriva lent, No Preserve, 6 Mons & Above, IM 06/12/2018,07/14/2017 Seasonal Influenza, Quadriva lent, No Preserve, IM [...] encounter Miscellaneous Notes * Telephone Encounter - Gina Castaneda OSA - 05/01/2019 8:56 AM EDT Patient Phone Numbers Triaged call from patient. Reports consistently elevated blood sugars ranging from low 300's to high 400's. Please review. documented in this encounter Plan of Treatment Upcoming Encounters Date Type Specialty Care Team Description 08/21/2019 Office Visit Orthopedics Zonia Cheema, [address] [address] [phone] 08/24/2019 Office Visit Nephrology Gia White MD [address] [place] [address] [phone] 08/27/2019 Pharmacy Pharmacy [facility] [address] [place] [address] 08/28/2019 [facility] Visit [facility] Teddy Mccrary RN [address] [place] [address] [phone] 09/06/2019 Office Visit Pulmonary Celsa Tafoya CRNP [address] [place] [address] [phone] 10/03/2019 Office Visit Gynecology Obstetrics Yumiko Cast, [facility] [address] [facility] [place] [address] [phone] 11/07/2019 Office Visit Family Medicine Kevin Whiteside DO [address] [place] [address] [phone] 02/26/2020 Office Visit Cardiology Rey Woodall MD [address] [place] [address] [phone] Health Maintenance Due Date Last Done Comments PAP SMEAR-EVERY 3 YRS,AGES 21-65 05/11/2016 05/11/2013, 03/01/2008, 10/19/2006, Additional history exists CKD PHOS USE SMARTSET 54402 12/29/2018 04/01/2018, 08/26/2009, 08/25/2009, Additional history exists DIABETES-FOOT EXAM 01/02/2020 01/01/2019, 0 12/29/2017, 10/21/2016, Additional history exists CKD GFR USE SMARTSET 01440 02/07/202008/09, 07/20/2019, 06/15/2019, Additional history exists DIABETES-HGBA1C EVERY 6 MONTHS 02/07/2020 08/09/2019, 03/14/2019, 09/27/2018, Additional history exists Yearly B-12 03/14/2020 03/14/2019, 05/16/2018 DIABETES-EYE EXAM 04/05/2020 04/05/2019, (Done elsewhere), 12/18/2009, Additional history exists DIABETES-URINE MICROALBUMIN EVERY 12 MONTHS 05/24/2020 05/24/2019, 02/26/2019, 12/23/2018, Additional history exists BREAST CANCER SCREENING DISCUSSION YEARLY AGES 40-75 07/10/2020 07/10/2019, 06/23/2018, 05/09/2015, Additional history exists CKD HGB USE SMARTSET 23668 07/20/202007/20, 02/26/2019, 12/23/2018, Additional history exists Pneumococcal [...] Documents on File Type Date Recorded Patient Oncology Nurse Navigator Expl anation Advanced Directive 08/22/2009 12:00 AM [...]
--- OUTSIDE RECORDS SUMMARY | 2023-06-01 05:40 | External Medical Summary | Summary of Care ---
Author Name Unknown Organization [place] [address] Care Team Providers Care Wire Loop Machine Operator Name Role Phone Whiteside Kevin Ocampomelinda Primary Care Provider Reason for Visit * Reason Comments Dosage Adjustment In Person (Anticoag Cl inic) Diabetes Follow-Up Encounter Details Date Type Department Care Team Description 08/27/2019 Pharmacy Pharmacy, [facility] [address] [facility] [place] [address] [facility] [address] [facility] [place] [address] Uncontrolled type 2 diabetes mellitus with stage 3 chronic kidney disease, with long-term current use of insulin ([facility])*; Type 2 diabetes mellitus with hemoglobin A1c goal of 7.0%-8.0% ([facility]) Allergies Active Allergy Reactions Severity Noted Date Comments Pollen 05/18/2019 Heparin 09/04/2009 Heparin Induced Thrombocytopenia Empagliflozin Other (Please comment) Medium 05/17/2018 3 yeast infections in 6 weeks after starting Morphine And Related 09/16/1997 Hallucinations Tetanus Toxoid Other (Please comment) 06/15/2011 Passed out documented as of this encounter (statuses as of 08/27/2019) Medications Medication Sig Dispensed Refills Start Date [...] 5 01/01/2019 Active Blood Glucose Monitoring Suppl (CodeBabyUCH ULTRA 2) w/Device KIT Use to test [...] (BMI) of 50.0 to 59.9 in adult ([facility]),Hypoxemia,ELISSA (obstructive sleep apnea),HTN, goal below [...] 30 Tab 5 04/04/2019 Active Glucose Blood (CodeBabyUCH ULTRA BLUE) STRP Check sugars 3-4 times [...] 08/09/2019 Active Vitamin D, Ergocalciferol, 1.25 MG (26555 UT) CapsuleIndications:V itamin D deficiency Take 1 Cap by mouth every 4 weeks. 13 Cap 0 08/24/2019 Active documented as of this encounter (statuses as of 08/27/2019) Active Problems Problem Noted Date Benign hypertensive [...] as of this encounter (statuses as of 08/27/2019) Resolved Problems Problem Noted Date Resolved Date [...] as of this encounter (statuses as of 08/27/2019) Immunizations Name Administration Dates Next Due Pneumococcal [...] this encounter Progress Notes * Rose Barton, [facility] - 08/27/2019 10:51 AM EST Medication Therapy Disease Management CSII [...] since last visit: no Current Diabetes Medications: Diabetes Medications: Ozempic 0.50 mg weekly Medtronic 630G Insulin Pump (Serial Number: [id number]) Infusion Set: SureT Insulin: Novolog Basal Rate: 4.25 units/hour Bolus: 22 units with breakfast, 22 [...] pulmonary embolus (PE) Z86.711 Statin intolerance Z78.[address] Z95.828 Type 2 diabetes mellitus with hemoglobin A1c goal of 7.0%-8.0% ([facility]) E11.9 Fibromyalgia M79.7 Abnormality of gait R26.9 Restless legs syndrome G25.81 Gastroesophageal reflux disease with esophagitis K21.0 Uncontrolled type 2 diabetes mellitus with stage 3 chronic kidney disease, with long-term current use of insulin ([facility]) E11.22, E11.65, N18.3, Z79.4 Body mass index (BMI) of 50.0 to 59.9 in adult ([facility]) Z68.43 Controlled substance agreement signed Z79.899 Chronic diastolic congestive heart failure ([facility]) I50.32 Thoracic back pain M54.6 Mild episode of recurrent major depressive disorder ([facility]) F33.0 Lumbar radiculopathy M54.16 Other atherosclerosis of [place] arteries of extremities, left leg ([facility]) I70.292 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 Glucose Blood (CodeBabyUCH ULTRA BLUE) STRP Check sugars 3-4 times [...] 2 times a day. 90 Tab 3 levothyroxine (LEVOXYL) 25 MCG Tablet TAKE ONE TABLET BY MOUTH IN THE MORNING AT LEAST 30 MINUTES PRIOR TO BREAKFAST OR OTHER MEDS 30 Tab 5 Blood Glucose Monitoring Suppl (BIGWORDS.comTOUCH ULTRA 2) w/Device KIT Use to test [...] NEEDED FOR MUSCLE SPASM 90 Tab 2 levothyroxine (LEVOXYL) 200 MCG Tablet TAKE ONE TABLET BY MOUTH ONE TIME DAILY at least 30 minutes prior to breakfast or other meds 90 Tab 5 Nortriptyline HCl (PAMELOR) 50 MG Capsule [...] tablet daily Objective: The ASCVD Risk score (Elktonadrianna JOHNS Jr., et al., 2013) failed to calculate for the following reasons: The patient has a prior NH or stroke diagnosis Estimated body mass index is 56.53 kg/m as calculated from the following: Height as of 08/24/19: 1.651 m (5' 5"). Weight as of 08/24/19: 154.1 kg (339 lb 11.2 oz). BP Readings from Last 3 Encounters: 08/24/19 116/64 08/09/19 110/60 07/20/19 124/76 No POC orders found HEMOGLOBIN, A1C(%) Nessa [...] Nessa Dt/Tm Resulted Value Status BUN (mg/dL) 08/09/19 11:02A 08/09/19 35* F CREATININE (mg/dL) 08/09/19 11:02A 08/09/19 1.7* F E GLOM FILT RATE ( ) 08/09/19 11:02A 08/09/19 30.9* F SODIUM (mmol/L) 08/09/19 11:02A 08/09/19 137 F POTASSIUM (mmol/L) 08/09/19 11:02A 08/09/19 4.2 F CHLORIDE (mmol/L) 08/09/19 11:02A 08/09/19 94* F CO2 (mmol/L) 08/09/19 11:02A 08/09/19 27 F ANION GAP (mmol/L) 08/09/19 11:02A 08/09/19 16* F GLUCOSE (mg/dL) 08/09/19 11:02A 08/09/19 179* F CALCIUM (mg/dL) 08/09/19 11:02A 08/09/19 10.1 F ALT(U/L) Nessa Dt/Tm Resulted Value Status 07/20/19 10:42A 07/20/19 18 FINAL Assessment & Plan: Glycemic control is stable but not at goal Patient agreeable to adjust medications as noted below. Basal settings increased as glucose is rising overnight and between meals. ICR/fixed dose continued [...] documentation. Diabetes Medications: Ozempic 0.50 mg weekly DCMobility 630G Insulin Pump (Serial Number: [id number]) Infusion Set: SureT Insulin: Novolog INC: Basal Rate: 4.75 units/hour Bolus: 22 units with breakfast, 22 units with lunch and 22 units with supper and 8 units with bedtime snack Bolus wizard: on and using ICR: 4 ISF: 10 Blood Glucose Goals: 120-150 Active Insulin Time: 4 hours Diabetes Health Maintenance: up-to-date Return to Clinic: 8 week(s) Next Office Visit: 10/29/2019 Scheduled Provider(s): [facility] Rose Barton RPh Clinical Pharmacist Medication Therapy Disease Management 08/27/2019, 10:51 AM documented in this encounter Plan of Treatment Upcoming Encounters Date Type Specialty Care Team Description 08/28/2019 Office Visit Orthopedics Zonia Cheema DO [address] [place] [address] [phone] 08/28/2019 Home Visit [facility] Teddy Mccrary, RN [address] [place] [address] [phone] 09/04/2019 Office Visit Orthopedics Zonia Cheema, DO [address] [place] [address] [phone] 09/06/2019 Office Visit Pulmonary Celsa Tafoya CRNP [address] [place] [address] [phone] 10/03/2019 Office Visit Gynecology Obstetrics Yumiko Cast, [facility] [address] [place] [address] [phone] 10/29/2019 Pharmacy Pharmacy [facility] [address] [place] [address] 11/07/2019 Office Visit Family Medicine Kevin Whiteside, [address] [place] [address] [phone] 02/26/2020 Office Visit Cardiology Rey Woodall MD [address] [place] [address] [phone] Health Maintenance Due Date Last Done Comments PAP SMEAR-EVERY 3 YRS,AGES 21-65 05/11/2016 05/11/2013, 03/01/2008, 10/19/2006, Additional history exists CKD PHOS USE SMARTSET 24220 12/29/2018 04/01/2018, 08/26/2009, 08/25/2009, Additional history exists DIABETES-FOOT EXAM 01/02/2020 01/01/2019, 0 12/29/2017, 10/21/2016, Additional history exists CKD GFR USE SMARTSET 84968 02/07/202008/09, 07/20/2019, 06/15/2019, Additional history exists DIABETES-HGBA1C EVERY 6 MONTHS 02/07/2020 08/09/2019, 03/14/2019, 09/27/2018, Additional history exists Yearly B-12 03/14/2020 03/14/2019, 05/16/2018 DIABETES-EYE EXAM 04/05/2020 04/05/2019, (Done elsewhere), 12/18/2009, Additional history exists DIABETES-URINE MICROALBUMIN EVERY 12 MONTHS 05/24/2020 05/24/2019, 02/26/2019, 12/23/2018, Additional history exists BREAST CANCER SCREENING DISCUSSION YEARLY AGES 40-75 07/10/2020 07/10/2019, 06/23/2018, 05/09/2015, Additional history exists CKD HGB USE SMARTSET 66359 07/20/202007/20, 02/26/2019, 12/23/2018, Additional history exists Pneumococcal [...] Documents on File Type Date Recorded Patient Bat Lathe Operator Expl anation Advanced Directive 08/22/2009 12:00 [...]
--- OUTSIDE RECORDS SUMMARY | 2023-06-01 05:40 | External Medical Summary | Summary of Care ---
Author Name Unknown Organization [place] [address] Care Team Providers Care Chief Lending Officer Name Role Phone Whiteside Kevin Gonzalez DO Primary Care Provider Encounter Details Date Type Department Care Team Description 07/21/2019 Scan Encounter Sleep Disorders, [facility] [address] [facility] [place] [address] [facility] [address] <No scans attached> Allergies Active Allergy Reactions Severity Noted Date Comments Pollen 05/18/2019 Heparin 09/04/2009 Heparin Induced Thrombocytopenia Empagliflozin Other (Please comment) Medium 05/17/2018 3 yeast infections in 6 weeks after starting Morphine And Related 09/16/1997 Hallucinations Tetanus Toxoid Other (Please comment) 06/15/2011 Passed out documented as of this encounter (statuses as of 08/03/2019) Medications Medication Sig Dispensed Refills Start Date [...] 5 01/01/2019 Active Blood Glucose Monitoring Suppl (U4[employer] Networks ULTRA 2) w/Device KIT Use to [...] at bedtime. 30 Tab 5 04/04/2019 Active Semaglutide (OZEMPIC) 0.25 or 0.5 MG/DOSE SOPN Inject 0.25 mg once weekly for 2 weeks and then 0.50 mg weekly 1 Pre-filled Pen Syringe Dosing Unit 5 04/18/2019 Active Additional information Patient taking differently: 0.5 mg QWEEK, Inject 0.50 mg weekly, Reported on 05/18/2019 4:22 PM Glucose Blood ([facility] Michigan[facility]CH ULTRA BLUE) STRP Check sugars 3-4 times daily 400 Strip 2 04/21/2019 Active furosemide (LASIX) 40 MG TabletIndications:Ch ronic diastolic congestive heart failure (HCC) Take 40 mg by mouth daily. 180 Tab 3 05/15/2019 Active oxygen GASIndications:EILSSA (obstructive sleep apnea) 2 L/min(Oxygen). 2 LPM bled through CPAP 11 cwp during all periods of sleep. 0 05/15/2019 Active traMADol (ULTRAM) 50 MG TabletIndications:Ch ronic pain syndrome Take 1 Tab by mouth every 8 hours as needed for Pain, Severe. 90 Tab 0 05/23/2019 Active Vitamin D, Ergocalciferol, 79820 units CapsuleIndications:V itamin D deficiency Take one capsule by mouth once a week 13 Cap 0 06/18/2019 Active Magnesium Oxide 400 (241.3 mg) Tablet Take 400 mg by mouth daily. 90 Tab 3 06/20/2019 Active spironolactone (ALDACTONE) 25 MG Tablet Take 1 Tab by mouth daily. 90 Tab 3 07/10/2019 Active clonazePAM (KLONOPIN) 0.5 MG TabletIndications:An xiety state TAKE ONE TABLET BY MOUTH TWICE DAILY 60 Tab 1 07/16/2019 Active documented as of this encounter (statuses as of 08/03/2019) Active Problems Problem Noted Date 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, NYHA class 1 and CKD stage 3 05/14/2019 Other atherosclerosis of [place] arteries of extremities, left leg 02/26/2019 Lumbar [...] as of this encounter (statuses as of 08/03/2019) Resolved Problems Problem Noted Date Resolved Date [...] as of this encounter (statuses as of 08/03/2019) Immunizations Name Administration Dates Next Due Pneumococcal [...] Encounters Date Type Specialty Care Team Description 08/09/2019 Office Visit Family Medicine Kevin Whiteside DO [address] [place] [address] [phone] 08/24/2019 Office Visit Nephrology Gia White MD [address] [facility] [place] [address] [phone] 08/27/2019 Pharmacy Pharmacy [facility] [address] [place] [address] 08/28/2019 [facility] Teddy Mccrary RN [address] [place] [address] [phone] 11/07/2019 Office Visit Family Medicine Kevin Whiteside DO [address] [place] [address] [phone] 02/26/2020 Office Visit Cardiology Rey Woodall MD [address] [place] [address] [phone] Health Maintenance Due Date Last Done Comments PAP SMEAR-EVERY 3 YRS,AGES 21-65 05/11/2016 05/11/2013, 03/01/2008, 10/19/2006, Additional history exists CKD PHOS USE SMARTSET 99926 12/29/2018 04/0 01/2018, 08/26/2009, 08/25/2009, Additional history exists DIABETES-HGBA1C EVERY 6 MONTHS 09/13/2019 03/14/2019, 09/27/2018, 05/01/2018, Additional history exists DIABETES-FOOT EXAM 01/02/2020 01/01/2019, 0 12/29/2017, 10/21/2016, Additional history exists CKD GFR USE SMARTSET 20483 01/19/202007/20, 06/15/2019, 05/24/2019, Additional history exists Yearly B-12 03/14/2020 03/14/2019, 05/16/2018 DIABETES-EYE EXAM 04/05/2020 04/05/2019, (Done elsewhere), 12/18/2009, Additional history exists DIABETES-URINE MICROALBUMIN EVERY 12 MONTHS 05/24/2020 05/24/2019, 02/26/2019, 12/23/2018, Additional history exists BREAST CANCER SCREENING DISCUSSION YEARLY AGES 40-75 07/10/2020 07/10/2019, 06/23/2018, 05/09/2015, Additional history exists CKD HGB USE SMARTSET 85092 07/20/202007/20, 02/26/2019, 12/23/2018, Additional history exists Pneumococcal [...] File Type Date Recorded Patient Director Of Student Financial Services Expl anation Advanced Directive 08/22/2009 12:00 AM [...]
--- OUTSIDE RECORDS SUMMARY | 2023-06-01 05:40 | External Medical Summary ---
Author Name Unknown Address Unknown Organization R:IT USE ONLY!!! Laboratory Report Ordering Provider Test Date Status RENUKA TOBAR 07/23/2019 16:39:00 Final Observation Date Value Abnormality Reference Status Source 07/23/2019 16:37 CLEAN CATCH URINE Final Bacteria XXX Cult 07/25/2019 15:00 >100,000 COLONIES/ML ESCHERICHIA COLI Abnormal Final Bacteria XXX Cult 07/25/2019 15:00 LESS THAN 10,000 COLONIES/ML MIXED NORMAL MELISSA Final REPORT STATUS 07/26/2019 15:12 07/26/2019 FINAL Final Bacteria Islt Cult 07/25/2019 15:00 ESCHERICHIA COLI Abnormal Final Performing Location IT USE ONLY!!!
--- OUTSIDE RECORDS SUMMARY | 2023-06-01 05:40 | External Medical Summary | Summary of Care ---
Author [place] [address] Care Team Providers Care Granite Polisher Apprentice Name Role Phone Kevin Whiteside DO Primary Care Provider Reason for Visit * Reason Comments Follow Up Encounter Details Date Type Department Care Team Description 08/24/2019 Office Visit Nephrology, [facility] [address] [place] [address] Gia White MD [address] [place] [address] Uncontrolled type 2 diabetes mellitus with stage 3 chronic kidney disease, with long-term current use of insulin (HCC)*; Vitamin D deficiency; HTN, goal below 130/80; Chronic diastolic congestive heart failure (HCC) Allergies Active Allergy Reactions Severity Noted Date Comments Pollen 05/18/2019 Heparin 09/04/2009 Heparin Induced Thrombocytopenia Empagliflozin Other (Please comment) Medium 05/17/2018 3 yeast infections in 6 weeks after starting Morphine And Related 09/16/1997 Hallucinations Tetanus Toxoid Other (Please comment) 06/15/2011 Passed out documented as of this encounter (statuses as of 08/24/2019) Medications Medication Sig Dispensed Refills Start Date End Date Status PRILOSEC 20 MG PO CPDR one tablet daily 0 Active docusate sodium (STOOL SOFTENER) 100 MG Capsule Take 100 mg by mouth 2 times a day as needed for Constipation. 0 Active cyclobenzaprine (FLEXERIL) 10 MG Tablet TAKE ONE TABLET BY MOUTH AT BEDTIME NEEDED FOR MUSCLE SPASM 90 Tab 2 8 Active levothyroxine (LEVOXYL) 200 MCG TabletIndications:P ostsurgical hypothyroidism TAKE ONE TABLET BY MOUTH ONE TIME DAILY at least 30 minutes prior to breakfast or other meds 90 Tab 5 8 Active Nortriptyline HCl (PAMELOR) 50 MG [...] 400 Box Dosing Unit 3 8 Active DULoxetine (CYMBALTA) 60 MG CPEPIndications:Fib romyalgia,Moderate episode of recurrent major depressive disorder (HCC),Primary osteoarthritis of both knees Take 1 Cap by mouth daily. Do not cut, crush or chew 90 Cap 5 9 Active gabapentin (NEURONTIN) 300 MG CapsuleIndications: Type 2 diabetes mellitus with hemoglobin A1c goal of 7.0%-8.0% ([facility]) Take 1 Cap by mouth 3 times a day. 270 Cap 5 9 Active Blood Glucose Monitoring Suppl ([employer] ULTRA 2) w/Device KIT Use to test BG values 1 Kit 0 9 Active levothyroxine (LEVOXYL) 25 MCG TabletIndications:P ostsurgical hypothyroidism TAKE ONE TABLET BY MOUTH IN THE MORNING AT LEAST 30 MINUTES PRIOR TO BREAKFAST OR OTHER MEDS 30 Tab 5 9 Active metoprolol tartrate (LOPRESSOR) 25 MG [...] at bedtime. 90 Tab 3 9 Active insulin aspart (NOVOLOG) 100 UNIT/ML injection Use in insulin pump up to 200 units daily 3 Vial 12 9 Active traZODone (DESYREL) 50 MG Tablet Take 1 Tab by mouth at bedtime. 30 Tab 5 9 Active Glucose Blood (Expect LabsTOUCH ULTRA BLUE) STRP Check sugars 3-4 times [...] mouth daily. 90 Tab 3 9 Active clonazePAM (KLONOPIN) 0.5 MG TabletIndications:A nxiety state TAKE ONE TABLET BY MOUTH TWICE DAILY 60 Tab 1 9 Active Semaglutide,0.25 or 0.5MG/DOS, (OZEMPIC, 0.25 [...] 9 Active Vitamin D, Ergocalciferol, 1.25 MG (09836 UT) CapsuleIndications: Vitamin D deficiency Take 1 Cap by mouth every 4 weeks. 13 Cap 0 9 Active Vitamin D, Ergocalciferol, 16480 units CapsuleIndications: Vitamin D deficiency Take one capsule by mouth once a week 13 Cap 0 9 08/24/20 19 Discontinued documented as of this encounter (statuses as of 08/24/2019) Active Problems Problem Noted Date Benign hypertensive [...] as of this encounter (statuses as of 08/24/2019) Resolved Problems Problem Noted Date Resolved Date [...] as of this encounter (statuses as of 08/24/2019) Immunizations Name Administration Dates Next Due Pneumococcal [...] Reading Time Taken Comments Blood Pressure 116/64 08/24/2019 2:52 PM EST Pulse 80 08/24/2019 2:52 PM EST Temperature 36.3 C (97.3 F) 08/24/2019 2:52 PM ES T Respiratory Rate 20 08/24/2019 2:52 PM EST Oxygen Saturation - - Inhaled Oxygen Concentration - - Weight 154.1 kg (339 lb 11.2 oz) 08/24/2019 2:52 PM EST Height 165.1 cm (5' 5") 08/24/2019 2:52 PM EST Body Mass Index 56.53 08/24/2019 2:52 PM EST documented in this encounter Progress Notes * Gia White MD - 08/24/2019 2:50 PM EST REASON FOR VISIT: CKD 3 HPI: Stephanie Camp is a 64 year old female seen in follow-up in the [facility] Nephrology office. Shehas history of type 2 diabetes for over 20 years recent A1c of 10 on 05/01/2018, no retinopathy buthas neuropathy,ELISSA on CPAP,DVT status post IVC filter, fibromyalgia hypertension and obesity. Her creatinine is fluctuated between 1.1 and 1.7 since 2016. Ultrasound done on 06/06/2018 showedthe right kidney of 10.2 cm and left kidney of 10.9 cm. There was mild He cortical atrophy and mildright-sided hydronephrosis. She was hospitalized at the [facility] for shortness of breath found have acute kidney injury with a creatinine of 1.1to 1.3 in the fall 2017. Recent echocardiogram April 2019 showed EF of 60% and grade 1 diastolic dysfunction. She was hospitalized at [facility] on 05/09/2019 with the weakness and CHF exacerbation. Creatinine peaked at 2.3. She is now taking Lasix 40 mg daily and Aldactone 25 mg daily. She is on chronic oxygen with exercise. Last office visit was in April 2019. In the interim she continues to feel well denies any worsening shortness of breath. No leg swelling. Blood pressure is controlled. She uses oxygen with exertion.No recent hospitalizations or ER visits. Past Medical History: Diagnosis Date ELSIE (acute [...] update of inactive term Vaginal karmen 07/13/2018 Review of Systems: General ROS: negative for - chills or fever Psychological ROS: negative for - mood swings ENT ROS: negative for - nasal congestion or nasal discharge Endocrine ROS: negative Cardiovascular ROS: no chest pain Gastrointestinal ROS: no abdominal pain, change in bowel habits, or black or bloody stools Genito-Urinary ROS: no dysuria, trouble voiding, or hematuria Musculoskeletal ROS: negative for - muscle pain Neurological ROS: no TIA or stroke symptoms Dermatological ROS: negative for rash Family History Problem Relation Age of Onset [...] level: Not on file Occupational History Occupation: [employer] Employer: [employer] Occupation: [employer] Employer: [employer] Social Needs Financial resource strain: Not on [...] file Gets together: Not on file Attends advent service: Not on file Active member of [...] file Social History Narrative 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 90Tab 0 clonazePAM (KLONOPIN) 0.5 MG Tablet TAKE [...] during all periods of sleep. Glucose Blood ([employer]texUCH ULTRA BLUE) STRP Check sugars 3-4 times daily 400 Strip 2 traZODone (DESYREL) 50 MG Tablet Take 1 Tab by mouth at bedtime. 30 Tab 5 insulin aspart (NOVOLOG) 100 UNIT/ML injection Use in insulin pump up to 200 units daily 3 Vial12 rOPINIRole (REQUIP) 2 MG Tablet Take 1 [...] 30 Tab 5 Blood Glucose Monitoring Suppl (ONETOUCH ULTRA 2) [...] 20 MG PO CPDR one tablet daily Filed Vitals: 08/24/19 1452 BP: 116/64 Pulse: 80 Resp: 20 Temp: 36.3 C (97.3 F) Weight: (!) 154.1 kg (339 lb 11.2 oz) Height: 1.651 m (5' 5") PHYSICAL EXAM: GENERAL: Alert, in no acute distress. EYES: PERRL, conjunctivae anicteric. ENT: Mucous membranes moist, oropharynx clear. NECK: Supple, no JVD. LYMPH: No cervical or supraclavicular lymphadenopathy. LUNGS: Clear to auscultation bilaterally, no respiratory distress. CARDIAC: Regular rate and rhythm, normal S1/S2, no murmurs, rubs, or gallops. ABDOMEN: Soft, non-tender, non-distended, bowel sounds present. EXT/MSK: No clubbing, cyanosis, or edema. SKIN: No rash, no jaundice. NEURO: Oriented x3, No tremor, no asterixis. LABS/STUDIES: BUN(mg/dL) Nessa Dt/Tm Resulted Value Status 08/09/19 11:02A 08/09/19 35* FINAL 07/20/19 10:42A 07/20/19 43* FINAL 06/15/19 1:59P 06/15/19 27* FINAL 05/24/19 2:43P 05/24/19 29* FINAL 05/07/19 2:14P 05/07/19 34* FINAL CREATININE(mg/dL) Nessa Dt/Tm Resulted Value Status 08/09/19 11:02A 08/09/19 1.7* FINAL 07/20/19 10:42A 07/20/19 1.7* FINAL 06/15/19 1:59P 06/15/19 1.5* FINAL CREATININE, RD URINE(mg/dL) Nessa Dt/Tm Resulted Value Status 05/24/19 2:59P 05/24/19 76 FINAL CREATININE(mg/dL) Nessa Dt/Tm Resulted Value Status 05/24/19 2:43P 05/24/19 1.7* FINAL E GLOM FILT RATE( ) Nessa Dt/Tm Resulted Value Status 08/09/19 11:02A 08/09/19 30.9* FINAL 07/20/19 10:42A 07/20/19 30.9* FINAL 06/15/19 1:59P 06/15/19 37.0* FINAL 05/24/19 2:43P 05/24/19 31.5* FINAL 05/07/19 2:14P 05/07/19 24.0* FINAL POTASSIUM(mmol/L) Nessa Dt/Tm Resulted Value Status 08/09/19 11:02A 08/09/19 4.2 FINAL 07/20/19 10:42A 07/20/19 5.0 FINAL 06/15/19 1:59P 06/15/19 4.3 FINAL HGB(g/dL) Nessa Dt/Tm Resulted Value Status 07/20/19 10:42A 07/20/19 13.6 FINAL 06/05/18 11:49A 06/05/18 12.9 FINAL 09/23/16 11:23A 09/23/16 14.0 FINAL 07/07/16 11:37A 07/07/16 13.2 FINAL 07/05/16 6:07P 07/05/16 13.5 FINAL MICROALBUMIN RATIO(mg/g creat) Nessa Dt/Tm Resulted Value Low High Status 05/24/19 2:59P 05/24/19 <16 FINAL 05/01/18 9:13A 05/01/18 <18 FINAL 03/03/17 12:37P 6/8/17 <15 FINAL No PROTCREATRAT components found PTH, INTACT(pg/mL) Nessa Dt/Tm Resulted Value Status 05/24/19 2:43P 05/24/19 25 FINAL PHOSPHORUS(mg/dL) Nessa Dt/Tm Resulted Value Status 12/29/17 12:43P 12/29/17 3.3 FINAL ASSESSMENT AND PLAN Stephanie was seen today for follow up. Diagnoses and all orders for this visit: Uncontrolled type 2 diabetes mellitus with stage 3 chronic kidney disease, with long-term current use of insulin ([facility]) Patient with the CKD stage 3 likely due to diabetic nephropathy and chronic NSAID use. Recent creatinine of 1.7. baseline creatinine appears to be 1.5- 1.7. She is no longer taking NSAIDs. She canuse Tylenol for pain control. She knows to limit salt and keep well hydrated but not more than 2 L of water daily. HTN, goal below 140/90 Her blood pressure is controlled with the current regimen which includes metoprolol and Lasix. No changes Chronic diastolic CHF Her symptoms are controlled on diuretics. Continue current dose of Lasix 40 mg daily and Aldactone 25 mg daily. She will continue to monitor her weight. She knows to notify us if she gains over5 lb in 2 days Hyperparathyroidism, secondary renal (HCC) PTH is above target. She is vitamin-D replete. Calcium is borderline high. Will reduce the ergo calciferol 88358 units once a month. Return in 6 months Gia White MD documented in this encounter Nursing Notes * Teri Cullen RN - 08/24/2019 2:52 PM EST Pt here for follow up visit documented in this encounter Plan of Treatment Upcoming Encounters Date Type Specialty Care Team Description 08/27/2019 Pharmacy Pharmacy [facility] [place] [address] [place] [address] 08/28/2019 Office Visit Orthopedics Zonia Cheema, [address] [address] [phone] 08/28/2019 Home Visit [facility] Teddy Mccrary RN [address] [address] [phone] 09/04/2019 Office Visit Orthopedics Zonia Cheema DO [address] [address] [phone] 09/06/2019 Office Visit Pulmonary Celsa Tafoya CRNP [address] [address] [phone] 10/03/2019 Office Visit Gynecology Obstetrics Yumiko Cast, [facility] [address] [facility] [place] [address] [phone] 11/07/2019 Office Visit Family Medicine Kevin Whiteside, [address] [place] [address] [phone] 02/26/2020 Office Visit Cardiology Rey Woodall MD [address] [place] [address] [phone] Health Maintenance Due Date Last Done Comments PAP SMEAR-EVERY 3 YRS,AGES 21-65 05/11/2016 05/11/2013, 03/01/2008, 10/19/2006, Additional history exists CKD PHOS USE SMARTSET 07385 12/29/201801/2018, 08/26/2009, 08/25/2009, Additional history exists DIABETES-FOOT EXAM 01/02/2020 01/01/2019, 0 12/29/2017, 10/21/2016, Additional history exists CKD GFR USE SMARTSET 08204 02/07/202008/09, 07/20/2019, 06/15/2019, Additional history exists DIABETES-HGBA1C EVERY 6 MONTHS 02/07/2020 08/09/2019, 03/14/2019, 09/27/2018, Additional history exists Yearly B-12 03/14/2020 03/14/2019, 05/16/2018 DIABETES-EYE EXAM 04/05/2020 04/05/2019, (Done elsewhere), 12/18/2009, Additional history exists DIABETES-URINE MICROALBUMIN EVERY 12 MONTHS 05/24/2020 05/24/2019, 02/26/2019, 12/23/2018, Additional history exists BREAST CANCER SCREENING DISCUSSION YEARLY AGES 40-75 07/10/2020 07/10/2019, 06/23/2018, 05/09/2015, Additional history exists CKD HGB USE SMARTSET 44644 07/20/202007/20, 02/26/2019, 12/23/2018, Additional history exists Pneumococcal [...] long-term current use of insulin (HCC)- Primary Vitamin D deficiency Unspecified vitamin D deficiency HTN, goal below 130/80 Unspecified essential hypertension Chronic diastolic congestive heart failure (HCC) Chronic diastolic heart failure documented in this encounter Advance Directives Documents on File Type Date Recorded Patient Solar Designer/Installer Expl anation Advanced Directive 08/22/2009 12:00 AM [...]
--- OUTSIDE RECORDS SUMMARY | 2023-06-01 05:40 | External Medical Summary ---
Author Name Unknown Address [facility] [place] [address] Phone Organization K01:[facility] [address] [id number] Laboratory Report Ordering Provider Test Date Status MIGUELONG 08/09/2019 11:02:00 Final Observation Date Value Abnormality Reference Status HbA1C 08/09/2019 19:21 9.4 Above high normal 4.0-5 .6 Final Performing Location [facility] [address] [facility] [address]
--- OUTSIDE RECORDS SUMMARY | 2023-06-01 05:40 | External Medical Summary | Summary of Care ---
Author Name Unknown Organization [place] [address] Care Team Providers Care Dough Panner Name Role Phone Kevin Whiteside DO Primary Care Provider Reason for Visit * Reason Comments Medication Question tramadol/cymbalta in crease Encounter Details Date Type Department Care Team Description 08/09/2019 Telephone Family Practice [facility] [address] [facility] [place] [address] [facility]ide DO [address] [facility] [place] [address] Medication Question (tramadol/cymbalta inc... Allergies Active Allergy Reactions Severity Noted Date Comments Pollen 05/18/2019 Heparin 09/04/2009 Heparin Induced Thrombocytopenia Empagliflozin Other (Please comment) Medium 05/17/2018 3 yeast infections in 6 weeks after starting Morphine And Related 09/16/1997 Hallucinations Tetanus Toxoid Other (Please comment) 06/15/2011 Passed out documented as of this encounter (statuses as of 08/13/2019) Medications Medication Sig Dispensed Refills Start Date [...] 5 01/01/2019 Active Blood Glucose Monitoring Suppl ([employer] CorporationUCH ULTRA 2) w/Device KIT Use to [...] 50.0 to 59.9 in adult ([facility]),Hypoxemia,ELISSA (obstructive sleep apnea),HTN, goal below [...] 30 Tab 5 04/04/2019 Active Glucose Blood ([employer] CorporationUCH ULTRA BLUE) STRP Check sugars 3-4 times daily 400 Strip 2 04/21/2019 Active furosemide (LASIX) 40 MG TabletIndications:Ch ronic diastolic congestive heart failure (HCC) Take 40 mg by mouth daily. 180 Tab 3 05/15/2019 Active oxygen GASIndications:ELISSA (obstructive sleep apnea) 2 L/min(Oxygen). 2 LPM bled through CPAP 11 cwp during all periods of sleep. 0 05/15/2019 Active Vitamin D, Ergocalciferol, 52655 units CapsuleIndications:V itamin D deficiency Take one [...] Pen Syringe Dosing Unit 12 08/09/2019 Active documented as of this encounter (statuses as of 08/13/2019) Active Problems Problem Noted Date 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, NYHA class 1 and CKD stage 3 05/14/2019 Other atherosclerosis of [place] arteries of extremities, left leg 02/26/2019 Lumbar [...] as of this encounter (statuses as of 08/13/2019) Resolved Problems Problem Noted Date Resolved Date [...] as of this encounter (statuses as of 08/13/2019) Immunizations Name Administration Dates Next Due Pneumococcal [...] Telephone Encounter - Kevin Whiteside DO - 08/09/2019 2:03 PM EST Was put in for her - sorry for the delay * Telephone Encounter - Charissa Jason audio engineer - 08/09/2019 12:24 PM EST Pt called stating she was to have been prescribed Tramadol and Duloxetine was to have been increased to 90 mg (from 60 mg). Please review and send to Donald if appropriate. Thank You, Charissa Jason [facility] Glassware Finisher Refill Call Center 08/09/2019, 12:26 PM documented in this encounter Plan of Treatment Upcoming Encounters Date Type Specialty Care Team Description 08/21/2019 Office Visit Orthopedics Zonia Cheema DO [address] [place] [address] 08/24/2019 Office Visit Nephrology Gia White MD [address] [facility] [place] [address] 08/27/2019 Pharmacy Pharmacy [facility] [place] [address] [place] [address] 08/28/2019 Home Visit [facility] Teddy Mccrary, RN [address] [place] [address] [phone] 09/06/2019 Office Visit Pulmonary Celsa Tafoya CRNP [address] [place] [address] [phone] 10/03/2019 Office Visit Gynecology Obstetrics Yumiko Cast, [address] [place] [address] [phone] 11/07/2019 Office Visit Family Medicine Kevin Whiteside DO [address] [place] [address] [phone] 02/26/2020 Office Visit Cardiology Rey Woodall MD [address] [place] [address] [phone] Health Maintenance Due Date Last Done Comments PAP SMEAR-EVERY 3 YRS,AGES 21-65 05/11/2016 05/11/2013, 03/01/2008, 10/19/2006, Additional history exists CKD PHOS USE SMARTSET 10698 12/29/2018 04/01/2018, 08/26/2009, 08/25/2009, Additional history exists DIABETES-FOOT EXAM 01/02/2020 01/01/2019, 0 12/29/2017, 10/21/2016, Additional history exists CKD GFR USE SMARTSET 74672 02/07/202008/09, 07/20/2019, 06/15/2019, Additional history exists DIABETES-HGBA1C [...] Documents on File Type Date Recorded Patient Dispatcher Maintenance Expl anation Advanced Directive 08/22/2009 12:00 AM [...]
--- OUTSIDE RECORDS SUMMARY | 2023-06-01 05:40 | External Medical Summary ---
Author Name Unknown Address [address] [facility] [place] [address] Phone Organization K0G:[facility] [employer] [address] [facility] [place] [address] Laboratory Report Ordering Provider Test Date Status LONG CAMARENA 08/09/2019 11:02:00 Final Observation Date Value Abnormality Reference Status BUN 08/09/2019 13:17 35 Above high normal 6-20 Final Creatinine 08/09/2019 13:17 1.7 Above high normal 0.5- 1.0 Final E Glom Filt Rate 08/09/2019 13:17 30.9 Below low normal >60 Final Performing Location [facility] [employer] [address] [facility] [place] [address]
--- OUTSIDE RECORDS SUMMARY | 2023-06-01 05:40 | External Medical Summary | Summary of Care ---
Author Name Unknown Organization [place] [address] Care Team Providers Care Warehouse Operator Name Role Phone Kevin Whiteside DO Primary Care Provider Reason for Visit * Reason Comments Medication Pre-auth TRAMADOL Encounter Details Date Type Department Care Team Description 08/10/2019 Telephone Family Practice [facility] [address] [place] [address] Kevin Whiteside DO [address] [facility] [place] [address] Medication Pre-auth (TRAMADOL) Allergies Active Allergy Reactions Severity Noted Date [...] 5 01/01/2019 Active Blood Glucose Monitoring Suppl (ZEALER ULTRA 2) w/Device KIT Use to test [...] 50.0 to 59.9 in adult ([facility]),Hypoxemia,ELISSA (obstructive sleep apnea),HTN, goal below 140/80 [...] 30 Tab 5 04/04/2019 Active Glucose Blood (EcosiaUCH ULTRA BLUE) STRP Check sugars 3-4 times daily 400 Strip 2 04/21/2019 Active furosemide (LASIX) 40 MG TabletIndications:Ch ronic diastolic congestive heart failure (HCC) Take 40 mg by mouth daily. 180 Tab 3 05/15/2019 Active oxygen GASIndications:ELISSA (obstructive sleep apnea) 2 L/min(Oxygen). 2 LPM bled through CPAP 11 cwp during all periods of sleep. 0 05/15/2019 Active Vitamin D, Ergocalciferol, 18299 units CapsuleIndications:V itamin D deficiency Take one [...] Pain, Severe. 90 Tab 0 08/09/2019 Active documented as of this encounter (statuses as of 08/17/2019) Active Problems Problem Noted Date 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, NYHA class 1 and CKD stage 3 05/14/2019 Other atherosclerosis of yocha dehe arteries of extremities, left leg 02/26/2019 Lumbar [...] Telephone Encounter - Angi Balderrama LPN - 08/17/2019 4:46 PM EST Called [place] number to ask if this was approved or denied. It was denied. Need urine drug screen documentation. See other encounter on this. * Telephone Encounter - Alvina Camargo LPN - 08/10/2019 9:50 AM EST Prior auth info sent in with note. Awaiting determination. * Telephone Encounter - Jing Pretty CPhT - 08/10/2019 9:11 AM EST [facility] calling to inform doctor that the pt's insurance will not pay for this medication without a completed prior authorization. Please complete prior authorization with the following information: Patient name: Stephanie Camp ID number: [id number] BIN number: [id number] N number: [id number] Subscriber name: Stephanie Camp Medication: TRAMADOL Reason for PA: Opioid Restrictions Pharmacy: [facility] plan and phone number: LEXIE Sam [phone] Form can be obtained by clicking on the following link: [email or web address] Please advise. [facility] Refill Call Center 08/10/2019, 9:11 AM documented in this encounter Plan of Treatment Upcoming Encounters Date Type Specialty Care Team Description 08/21/2019 Office Visit Orthopedics Zonia Cheema DO [address] [place] [address] [phone] 08/24/2019 Office Visit Nephrology Gia White MD [address] [facility] [place] [address] [phone] 08/27/2019 Pharmacy [facility]acy [facility] [address] [place] [address] 08/28/2019 Home Visit [facility] Teddy Mccrary RN [address] [facility] [place] [address] [phone] 09/06/2019 Office Visit Pulmonary Celsa Tafoya CRNP [address] [place] [address] [phone] 10/03/2019 Office Visit Gynecology Obstetrics Yumiko Cast, [address] [place] [address] [phone] 11/07/2019 Office Visit Family Medicine Kevin Whiteside DO [address] [place] [address] [phone] 02/26/2020 Office Visit Cardiology Rey Woodall MD [address] [place] [address] [phone] Health Maintenance Due Date Last Done Comments PAP SMEAR-EVERY 3 YRS,AGES 21-65 05/11/2016 05/11/2013, 03/01/2008, 10/19/2006, Additional history exists CKD PHOS USE SMARTSET 00298 12/29/2018 04/0 01/2018, 08/26/2009, 08/25/2009, Additional history exists DIABETES-FOOT EXAM 01/02/2020 01/01/2019, 0 12/29/2017, 10/21/2016, Additional history exists CKD GFR USE SMARTSET 19336 02/07/202008/09, 07/20/2019, 06/15/2019, Additional history exists DIABETES-HGBA1C EVERY 6 MONTHS 02/07/2020 08/09/2019, 03/14/2019, 09/27/2018, Additional history exists Yearly B-12 03/14/2020 03/14/2019, 05/16/2018 DIABETES-EYE EXAM 04/05/2020 04/05/2019, (Done elsewhere), 12/18/2009, Additional history exists DIABETES-URINE MICROALBUMIN EVERY 12 MONTHS 05/24/2020 05/24/2019, 02/26/2019, 12/23/2018, Additional history exists BREAST CANCER SCREENING DISCUSSION YEARLY AGES 40-75 07/10/2020 07/10/2019, 06/23/2018, 05/09/2015, Additional history exists CKD HGB USE SMARTSET 38049 07/20/202007/20, 02/26/2019, 12/23/2018, Additional history exists Pneumococcal [...] Documents on File Type Date Recorded Patient Organizational Development Consultant Expl anation Advanced Directive 08/22/2009 12:00 [...]
--- OUTSIDE RECORDS SUMMARY | 2023-06-01 05:40 | External Medical Summary | Summary of Care ---
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, NYHA class 1 and CKD stage 3 (HCC); Need for prophylactic vaccination and inoculation against influenza Allergies Active Allergy Reactions Severity Noted Date Comments Pollen 05/18/2019 Heparin 09/04/2009 Heparin Induced Thrombocytopenia Empagliflozin Other (Please comment) Medium 05/17/2018 3 yeast infections in 6 weeks after starting Morphine And Related 09/16/1997 Hallucinations Tetanus Toxoid Other (Please comment) 06/15/2011 Passed out documented as of this encounter (statuses as of 07/24/2019) Medications Medication Sig Dispensed Refills Start Date [...] 5 01/01/2019 Active Blood Glucose Monitoring Suppl (Marcadia BiotechUCH ULTRA 2) w/Device KIT Use to [...] Pen Syringe Dosing Unit 5 04/18/2019 Active Glucose Blood (ExpaniteTOUCH ULTRA BLUE) STRP Check sugars 3-4 times [...] Tab 0 05/23/2019 Active Vitamin D, Ergocalciferol, 62719 units CapsuleIndications:V itamin D deficiency Take one [...] as of this encounter (statuses as of 07/24/2019) Active Problems Problem Noted Date Benign hypertensive [...] 10/14/2014 Overview: ICD-10 update of inactive term [place] filter in place 08/19/2014 History of pulmonary [...] as of this encounter (statuses as of 07/24/2019) Resolved Problems Problem Noted Date Resolved Date [...] as of this encounter (statuses as of 07/24/2019) Immunizations Name Administration Dates Next Due Pneumococcal [...] as of this encounter Progress Notes * Teddy Mccrary RN - 07/23/2019 3:58 PM EDT [facility] Monthly Visit Date: 07/23/2019 Time: 3:58 PM Name: Stephanie Camp : 1955 Current Concerns: Driving Diagnoses for [facility] Enrollment:O2 dependent,CHF,ELISSA, T2DM,Obesity,CKD Seeing pt for flu shot. While here she reports burning upon urination, increased incontinence, NO foul odor. Had her collect urine specimen . Urine clear yellow. I will collect for UA, C&S Physical Exam: LMP 03/11/2003 Pain 5 Physical Exam Deferred (flu shot) Problems/Symptoms: Review of Systems Deferred (flu shot) Medication Reconciliation: (See medication list) Does patient take medications as ordered: Yes Patient Well Being: PHQ2/9: @[id number]@ Flu shot given; UTI symptoms Follow Up: Patient encouraged to call the intake phone number for all urgent but not emergent issues. Scheduled to follow up with patient in 5 weeks Teddy Mccrary RN 07/23/2019 3:58 PM PRE - ADMINISTRATION DOCUMENTATION Are you allergic to latex? No Are you experiencing any cold symptoms or fever? No Have you had Guillain-Adair Syndrome (an illness that causes paralysis) within the last 6 weeks? No Have you had the flu shot in the past? YES Have you ever had a reaction to the flu shot? No Teddy Mccrary RN, 07/23/2019 4:06 PM Immunization Administration Documentation Time Out Procedure Performed: Yes Patient Identified (Ask Name/Date of ): Yes Does the patient have a fever greater than 101 degrees today? No Patient allergic to latex? No VFC Stock: No Immunization(s) verified: Yes, Immunization Name: Flu, VIS Sheet(s) given: Yes Verified Side and Site: Yes Verified Shot(s) with Parent(s)/Patient: Yes documented in this encounter Plan of Treatment Upcoming Encounters Date Type Specialty Care Team Description 07/25/2019 [facility] [address] [place] [address] [phone] 07/25/2019 Office Visit Sleep Disorders Celsa Tafoya CRNP [address] [place] [address] [phone] 08/09/2019 Office Visit Family Kevin Richter DO [address] [place] [address] [phone] 08/24/2019 Office Visit Nephrology Gia White MD [address] [place] [address] [phone] 08/27/2019 Pharmacy Pharmacy [facility] [address] [place] [address] 08/28/2019 Home Visit [facility] Teddy Mccrary RN [address] [place] [address] [phone] 11/07/2019 Office Visit Family Kevin Richter DO [address] [place] [address] [phone] 02/26/2020 Office Visit Cardiology Rey Woodall MD [address] [place] [address] [phone] Scheduled Orders Name Type Priority Associated Diagnoses Orde r Schedule CULTURE QUANT URINE Lab Routine Dysuria Expected: 07/24/2019 (Approximate), Expires: 10/23/2019 URINE MICROSCOPIC Lab Routine Dysuria Expected: 07/24/2019 (Approximate), Expires: 07/22/2020 Health Maintenance Due Date Last Done Comments PAP SMEAR-EVERY 3 YRS,AGES 21-65 05/11/2016 05/11/2013, 03/01/2008, 10/19/2006, Additional history exists CKD PHOS USE SMARTSET 83812 12/29/2018 04/0 01/2018, 08/26/2009, 08/25/2009, Additional history exists DIABETES-HGBA1C EVERY 6 MONTHS 09/13/2019 03/14/2019, 09/27/2018, 05/01/2018, Additional history exists DIABETES-FOOT EXAM 01/02/2020 01/01/2019, 0 12/29/2017, 10/21/2016, Additional history exists CKD GFR USE SMARTSET 93314 01/19/202007/20, 06/15/2019, 05/24/2019, Additional history exists Yearly B-12 03/14/2020 03/14/2019, 05/16/2018 DIABETES-EYE EXAM 04/05/2020 04/05/2019, (Done elsewhere), 12/18/2009, Additional history exists DIABETES-URINE MICROALBUMIN EVERY 12 MONTHS 05/24/2020 05/24/2019, 02/26/2019, 12/23/2018, Additional history exists BREAST CANCER SCREENING DISCUSSION YEARLY AGES 40-75 07/10/2020 07/10/2019, 06/23/2018, 05/09/2015, Additional history exists CKD HGB USE SMARTSET 28176 07/20/202007/20, 02/26/2019, 12/23/2018, Additional history exists Pneumococcal [...] this encounter Visit Diagnoses Diagnosis Dysuria- Primary 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
--- OUTSIDE RECORDS SUMMARY | 2023-06-01 05:40 | External Medical Summary | Summary of Care ---
Author Name Unknown Organization [place] [address] Care Team Providers Care Lead Auditor Name Role Phone Kevin Whiteside DO Primary Care Provider Reason for Visit * Reason Comments NEW PATIENT L knee pain * Evaluate & Treat - Unlimited Visits (Within 10 days (routine)) Status Reason Specialty Diagnoses / Procedures Referred By Contact Referred To Contact Authorized Specialty Services Required Orthopaedic Surgery Diagnoses Chronic pain of left knee Kevin Whiteside DO [address] [place] [address] Encounter Details Date Type Department Care Team Description 08/21/2019 Office Visit Orthopaedics [facility] [address] [place] [address] Zonia Cheema DO [address] [facility] [place] [address] [phone] Primary osteoarthritis of left knee* Allergies Active Allergy Reactions Severity Noted Date Comments Pollen 05/18/2019 Heparin 09/04/2009 Heparin Induced Thrombocytopenia Empagliflozin Other (Please comment) Medium 05/17/2018 3 yeast infections in 6 weeks after starting Morphine And Related 09/16/1997 Hallucinations Tetanus Toxoid Other (Please comment) 06/15/2011 Passed out documented as of this encounter (statuses as of 08/21/2019) Medications Medication Sig Dispensed Refills Start Date [...] 5 01/01/2019 Active Blood Glucose Monitoring Suppl ([employer] Corporation[employer]OUCH ULTRA 2) w/Device KIT Use to [...] 30 Tab 5 04/04/2019 Active Glucose Blood ([employer]UCH ULTRA BLUE) STRP Check sugars 3-4 times daily 400 Strip 2 04/21/2019 Active furosemide (LASIX) 40 MG TabletIndications:Ch ronic diastolic congestive heart failure (HCC) Take 40 mg by mouth daily. 180 Tab 3 05/15/2019 Active oxygen GASIndications:ELISSA (obstructive sleep apnea) 2 L/min(Oxygen). 2 LPM bled through CPAP 11 cwp during all periods of sleep. 0 05/15/2019 Active Vitamin D, Ergocalciferol, 22288 units CapsuleIndications:V itamin D deficiency Take one [...] goal of 7.0%-8.0% ([facility]) Inject 0.5 mg under the skin once [...] Pain, Severe. 90 Tab 0 08/09/2019 Active Hospital, Clinic, or Other Facility Administered Medication Ordered Dose Route Frequency Start Date End Date Status sodium hyaluronate (GELSYN-3) 16.8 MG/2ML inj 16.8 mgIndications:Primary osteoarthritis of left knee 16.8 mg IX ONCE 08/21/2019 08/21/20 19 Ended documented as of this encounter (statuses as of 08/21/2019) Active Problems Problem Noted Date 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, NYHA class 1 and CKD stage 3 05/14/2019 Other atherosclerosis of [place] arteries of extremities, left leg 02/26/2019 Lumbar [...] 10/14/2014 Overview: ICD-10 update of inactive term [place] filter in place 08/19/2014 History of pulmonary [...] as of this encounter (statuses as of 08/21/2019) Resolved Problems Problem Noted Date Resolved Date [...] as of this encounter (statuses as of 08/21/2019) Immunizations Name Administration Dates Next Due Pneumococcal [...] - - Weight 152 kg (335 lb) 08/21/2019 10:07 AM EST Height 165.1 cm (5' 5") 08/21/2019 10:07 AM EST Body Mass Index 55.75 08/21/2019 10:07 AM EST documented in this encounter Progress Notes * German Tapia PA-C - 08/21/2019 10:24 AM EST Chief complaint: Left knee pain HPI: Patient is a 64-year-old male complaining of left knee pain times years. Has prior surgical history with left knee arthroscopy partial meniscectomy that was performed by Dr. Carrillo at [facility]. That was upwards of 5 years ago. She has had corticosteroid injections in the left knee but she is diabetic. She has also utilized multiple series of viscosupplementation has workedwell for her in the past but was advised by her orthopedist that she likely would not benefit from any further injections. She presents to [facility] by request since her other medical providers are in the same building. She has pain along the medial joint line with rest and with weight- bearing activity. Denies any recent injury or fall. Denies any calf pain. No numbness or tingling distally. Advised that she would likely need to proceed with a total joint arthroplasty for left knee. Again, does state that the gel shots are beneficial and possible like to remain conservative with treatment. Nursing Notes: Migdalia Barth LPN 08/21/19 1011 Signed Pt presents for L knee pain x 5-6 years, becoming more severe in the past year. Has hx of R knee replacement 5-6 years ago, unable to have L knee surgery until BSG was under better control, has insulin pump now. nredin CHUYITA Today's Vitals: Ht 5' 5" (1.651m) | Wt 335 lbs (151.955kg) | BMI 55.75 kg/m | BSA 2.64 m | LMP 03/11/2003 Review of patient's allergies indicates: [...] and motor function, calf supple nontender, FHLEHL and TA along the gastroc are intact Respiratory: Patient's breathing unlabored HEENT: Head is atraumatic normocephalic, eyes are equal and round and without scleral injection, oral and nasal cavities are patent without exudate Gait and station: Normal without antalgic findings during ambulation and generalized movements Coordination: Normal and without imbalance Musculoskeletal: Left knee reveals range of motion 0, 0, 115 with tightness along the medial joint line at endpoints. She has tenderness when palpating the medial femoral condyle. Ligamentously stable. Overall fairly negative Radha's and Apley grind. Extensor mechanism intact. Hip and ankle atraumatic X-rays the patient's left knee reveal essentially [id number] joint space narrowing along the medial joint line. She has periarticular osteophytosis. Sclerotic bone change. No advanced subchondral cyst formation. Degenerative changes noted in the patellofemoral joint as well. No evidence of acute findings such as fracture dislocation or subluxation. No other obvious cystic changes or masses identified the bone. Official radiology report listed in the patient's chart. Current Outpatient Medications Medication Sig Dispense Refill DULoxetine (CYMBALTA) 30 MG CPEP Take 1 [...] mg by mouth daily. 90 Tab 3 Vitamin D, Ergocalciferol, 61983 units Capsule Take one capsule by mouth once a week 13 Cap 0 furosemide (LASIX) 40 MG Tablet Take 40 [...] pulmonary embolus (PE) Z86.711 Statin intolerance Z78.[address] Z95.828 Type 2 diabetes mellitus with hemoglobin A1c goal of 7.0%-8.0% ([facility]) E11.9 Fibromyalgia M79.7 Abnormality of gait R26.9 Restless legs syndrome G25.81 Gastroesophageal reflux disease with esophagitis K21.0 Uncontrolled type 2 diabetes mellitus with stage 3 chronic kidney disease, with long-term current use of insulin ([facility]) E11.22, E11.65, N18.3, Z79.4 Body mass index (BMI) of 50.0 to 59.9 in adult ([facility]) Z68.43 Controlled substance agreement signed Z79.899 Chronic diastolic congestive heart failure ([facility]) I50.32 Thoracic back pain M54.6 Mild episode of recurrent major depressive disorder ([facility]) F33.0 Lumbar radiculopathy M54.16 Other atherosclerosis of [place] arteries of extremities, left leg ([facility]) I70.292 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, NYHA class 1 and CKD stage 3 ([facility]) I13.0, I50.30, N18.3 Past Surgical History: Procedure Laterality Date ARTHROPLASTY KNEE TOTAL Right 07/24/14 R COLONOSCOPY, DIAGNOSTIC (RECTUM) 02/18/2016 normal, repeat 10 yrs/[facility] COLONOSCOPY, GI REFERRAL OP 01/28/06 diverticulosis--repeat 10 years INCISION OF [place], PLANNED 06/03/2011 TRACHEOSTOMY PLANNED performed by DANNY HOLDER at [facility] KNEE ARTHROSCOPY/DEBRIDEMENT 07/[address] PERMANENT GASTROSTOMY TUBE 09/06/09 GASTROSTOMY WITH CONSTUCTION GASTRIC TUBE performed by AMADOU NUNEZ at [facility] REMOVAL OF THYROID GLAND 06/15/2011 THYROIDECTOMY INCLUDING SUBSTERNAL THYROID CERVICAL APPROACH performed by DANNY HOLDER at [facility] REMOVE GALLBLADDER 09/06/09 CHOLECYSTECTOMY performed by AMADOU NUNEZ at [facility] REPAIR RECURRENT INCISIONAL HERNIA 1998 REVISION OF COLOSTOMY, SIMPLE 1998 SUTURE, LARGE INTESTINE W/COLOSTOMY 1996 perforation R colon with colostomy VENA CAVA FILTER/LIGATION/CLIP 08/19/09 Frank filter placement through the right femoral 08/19/[address] Lerma at [facility] Impression: Left knee primary osteoarthritis Plan: Today 's findings were discussed with the patient. They were educated regarding their diagnosis. Multiple treatment options discussed and agreed upon, including proceeding with a new series of viscosupplementation injections for left knee Gelsyn-3. She has benefitted well from this in the past. She has failed corticosteroid injections in the past and also medically should avoid the since she does have noted type 2 diabetes. She does not warrant nor would benefit from a knee arthroscopy due to her advancing osteoarthritis. Due to her BMI this time she would likely not qualify for a knee replacement. Her turns will allow her to begin the gel injection series today. Patient agrees to this plan and written consent was obtained. The patient has no other questions or concerns. They will follow up in 1 week to begin a 2nd injection of Gelsyn-3 for the left knee. Pleased with today 's care. Call sooner if needed. Left knee identified. Inferomedial approach utilized. Time-out performed. Skin was cleansed with alcohol and chlorhexidine x2. The skin was anesthetized with ethyl chloride. Injection consisted of 1 prepackaged syringe of Gelsyn-3. She tolerated injection very well was free flowing through the leftknee joint. Hemostasis achieved Band-Aid was applied. This chart was completed in part utilizing [employer] Speech Voice Recognition Software. Grammatical errors, random word insertions, prounoun errors, and incomplete sentences are an occasional consequence of this system due to software limitations, ambient noise, and hardware issues. Any formal questions or concerns about the content, text, or information contained within the body of this dictation should be directly addressed to the provider for clarification. German Tapia PA-C 08/21/2019 10:24 AM documented in this encounter Nursing Notes * Migdalia Barth LPN - 08/21/2019 10:07 AM EST Pt presents for L knee pain x 5-6 years, becoming more severe in the past year. Has hx of R knee replacement 5-6 years ago, unable to have L knee surgery until BSG was under better control, has insulin pump now. janeth BOOGIE documented in this encounter Plan of Treatment Upcoming Encounters Date Type Specialty Care Team Description 08/24/2019 Office Visit Nephrology Gia White MD [address] [place] [address] [phone] 08/27/2019 Pharmacy Pharmacy [facility] [address] [place] [address] 08/28/2019 Office Visit Orthopedics Zonia Cheema, [address] [place] [address] [phone] 08/28/2019 Home Visit [facility] Teddy Mccrary, RN [address] [facility] [place] [address] [phone] 09/04/2019 Office Visit Orthopedics Zonia Cheema, [address] [place] [address] [phone] 09/06/2019 Office Visit Pulmonary Celsa Tafoya CRNP [address] [facility] [place] [address] [phone] 10/03/2019 Office Visit Gynecology Obstetrics Yumiko Cast, [address] [place] [address] [phone] 11/07/2019 Office Visit Family Medicine Kevin Whiteside, [address] [place] [address] [phone] 02/26/2020 Office Visit Cardiology Rey Woodall MD [address] [facility] [place] [address] [phone] Pending Results Name Type Priority Associated Diagnoses Date /Time XR KNEE 3 VIEWS Medical Imaging Routine 07/28 10:22 AM EST Scheduled Orders Name Type Priority Associated Diagnoses Orde r Schedule ARTHROCENT ASP &/OR INJ MAJOR JX/BURSA W/O US Procedures Routine Primary osteoarthritis of left knee Ordered: 08/21/2019 Health Maintenance Due Date Last Done Comments PAP SMEAR-EVERY 3 YRS,AGES 21-65 05/11/2016 05/11/2013, 03/01/2008, 10/19/2006, Additional history exists CKD PHOS USE SMARTSET 71135 12/29/201801/2018, 08/26/2009, 08/25/2009, Additional history exists DIABETES-FOOT EXAM 01/02/2020 01/01/2019, 0 12/29/2017, 10/21/2016, Additional history exists CKD GFR USE SMARTSET 34412 02/07/202008/09, 07/20/2019, 06/15/2019, Additional history exists DIABETES-HGBA1C EVERY 6 MONTHS 02/07/2020 08/09/2019, 03/14/2019, 09/27/2018, Additional history exists Yearly B-12 03/14/2020 03/14/2019, 05/16/2018 DIABETES-EYE EXAM 04/05/2020 04/05/2019, (Done elsewhere), 12/18/2009, Additional history exists DIABETES-URINE MICROALBUMIN EVERY 12 MONTHS 05/24/2020 05/24/2019, 02/26/2019, 12/23/2018, Additional history exists BREAST CANCER SCREENING DISCUSSION YEARLY AGES 40-75 07/10/2020 07/10/2019, 06/23/2018, 05/09/2015, Additional history exists CKD HGB USE SMARTSET 16187 07/20/202007/20, 02/26/2019, 12/23/2018, Additional history exists Pneumococcal [...] inj 16.8 mg 16.8 mg, Intra-Articular, ONCE, 08/21/19 at 1115, For 1 dose Given 08/21/2019 10:43 AM EST 16.8 mg Knee Left documented in this encounter Advance Directives Documents on File Type Date Recorded Patient Lead Net Software Developer Expl anation Advanced Directive 08/22/2009 [...]
--- OUTSIDE RECORDS SUMMARY | 2023-06-01 05:40 | External Medical Summary | Summary of Care ---
Author Name Unknown Organization [place] [address] Care Team Providers Care Star Route Mail Driver Name Role Phone Kevin Whiteside DO Primary Care Provider Reason for Visit * Reason Comments Dosage Adjustment Via Phone (anticoag Cl inic) Encounter Details Date Type Department Care Team Description 07/25/2019 Pharmacy [facility] [address] [facility] [place] [address] [facility] [address] [facility] [address] [phone] Dysuria* Allergies Active Allergy Reactions Severity Noted Date Comments Pollen 05/18/2019 Heparin 09/04/2009 Heparin Induced Thrombocytopenia Empagliflozin Other (Please comment) Medium 05/17/2018 3 yeast infections in 6 weeks after starting Morphine And Related 09/16/1997 Hallucinations Tetanus Toxoid Other (Please comment) 06/15/2011 Passed out documented as of this encounter (statuses as of 07/25/2019) Medications Medication Sig Dispensed Refills Start Date [...] 5 01/01/2019 Active Blood Glucose Monitoring Suppl ([employer] ULTRA 2) w/Device KIT Use to test [...] Dosing Unit 5 04/18/2019 Active Glucose Blood ([employer]CH ULTRA BLUE) STRP [...] Tab 0 05/23/2019 Active Vitamin D, Ergocalciferol, 64827 units CapsuleIndications:V itamin D deficiency Take one [...] TWICE DAILY 60 Tab 1 07/16/2019 Active ciprofloxacin (CIPRO) 250 MG Tablet Take 1 Tab by mouth every 12 hours for 3 days. 6 Tab 0 07/25/2019 9 Active documented as of this encounter (statuses as of 07/25/2019) Active Problems Problem Noted Date 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, NYHA class 1 and CKD stage 3 05/14/2019 Other atherosclerosis of [place] arteries of extremities, left leg 02/26/2019 Lumbar [...] 10/14/2014 Overview: ICD-10 update of inactive term [place] filter in place 08/19/2014 History of pulmonary [...] as of this encounter (statuses as of 07/25/2019) Resolved Problems Problem Noted Date Resolved Date [...] as of this encounter (statuses as of 07/25/2019) Immunizations Name Administration Dates Next Due Pneumococcal [...] this encounter Progress Notes * Hortencia Masters [facility] - 07/25/2019 3:27 PM EDT [facility] Patient Phone Numbers Spoke with patient. She reports she is still having burning with urination. Discussed urine testingresults. Will avoid macrobid d/t kidney function and BActrim d/e hx of hyperkalemia. Will start Cipro 250mg BID x3 days. Pt has had in the past and has previously tolerated. Advised pt to increase fluid intake as well. Pt will call if s/s do not resolve with ABX. For data purposes only: Intervention Type: Acute Issue Medication/Condition: UTI - MRP Indication-Needs additional therapy Action Add medication: Cipro Resolution Pharmacist Resolved. Hortencia Masters, PharmD, [facility] Clinical Pharmacist [facility] 07/25/2019,3:40 PM documented in this encounter Plan of Treatment Upcoming Encounters Date Type Specialty Care Team Description 08/09/2019 Office Visit Family Medicine Kevin Whiteside, DO [address] [place] [address] [phone] 08/24/2019 Office Visit Nephrology Gia White MD [address] [place] [address] [phone] 08/27/2019 Pharmacy Pharmacy [facility] [place] [address] [place] [address] 08/28/2019 Home Visit [facility] Teddy Mccrary RN [address] [place] [address] [phone] 11/07/2019 Office Visit Family Medicine Kevin Whiteside DO [address] [place] [address] [phone] 02/26/2020 Office Visit Cardiology Rey Woodall MD [address] [place] [address] [phone] Health Maintenance Due Date Last Done Comments PAP SMEAR-EVERY 3 YRS,AGES 21-65 05/11/2016 05/11/2013, 03/01/2008, 10/19/2006, Additional history exists CKD PHOS USE SMARTSET 19928 12/29/2018 04/0 01/2018, 08/26/2009, 08/25/2009, Additional history exists DIABETES-HGBA1C EVERY 6 MONTHS 09/13/2019 03/14/2019, 09/27/2018, 05/01/2018, Additional history exists DIABETES-FOOT EXAM 01/02/2020 01/01/2019, 0 12/29/2017, 10/21/2016, Additional history exists CKD GFR USE SMARTSET 53333 01/19/202007/20, 06/15/2019, 05/24/2019, Additional history exists Yearly B-12 03/14/2020 03/14/2019, 05/16/2018 DIABETES-EYE EXAM 04/05/2020 04/05/2019, (Done elsewhere), 12/18/2009, Additional history exists DIABETES-URINE MICROALBUMIN EVERY 12 MONTHS 05/24/2020 05/24/2019, 02/26/2019, 12/23/2018, Additional history exists BREAST CANCER SCREENING DISCUSSION YEARLY AGES 40-75 07/10/2020 07/10/2019, 06/23/2018, 05/09/2015, Additional history exists CKD HGB USE SMARTSET 18461 07/20/202007/20, 02/26/2019, 12/23/2018, Additional history exists Pneumococcal [...] Documents on File Type Date Recorded Patient Program Management Manager Expl anation Advanced Directive 08/22/2009 [...]
--- OUTSIDE RECORDS SUMMARY | 2023-06-01 05:40 | External Medical Summary | Summary of Care ---
Author Name Unknown Organization [place] [address] Care Team Providers Care Insulation Batting Machine Operator Name Role Phone Kevin Whiteside DO Primary Care Provider Reason for Referral * Evaluate & Treat - Unlimited Visits (Within 10 days (routine)) Status Reason Specialty Diagnoses / Procedures Referred By Contact Referred To Contact Authorized Specialty Services Required Orthopaedic Surgery Diagnoses Chronic pain of left knee Kevin Whiteside DO [address] [place] [address] * Evaluate & Treat - Unlimited Visits (Within 10 days (routine)) Status Reason Specialty Diagnoses / Procedures Referred By Contact Referred To Contact Authorized Specialty Services Required Obstetrics/Gyne cology Diagnoses Pap smear for cervical cancer screening Kevin Whiteside DO [address] [address] Reason for Visit * Reason Comments Follow Up pt here to follow up from PT, c/o SOB and pain. pt states lower back pain has improved but now has more pain in upper back and bilateral knee. Encounter Details Date Type Department Care Team Description 08/09/2019 Office Visit [facility] [address] [address] Kevin Whiteside DO [address] [address] [phone] Pap smear for cervical cancer screening*; Type 2 diabetes mellitus with hemoglobin A1c goal of 7.0%-8.0% (HCC); Uncontrolled type 2 diabetes mellitus with stage 3 chronic kidney disease, with long-term current use of insulin (HCC); Body mass index (BMI) of 50.0 to 59.9 in adult (HCC); Chronic pain of left knee; Chronic pain syndrome Allergies Active Allergy Reactions Severity Noted Date Comments Pollen 05/18/2019 Heparin 09/04/2009 Heparin Induced Thrombocytopenia Empagliflozin Other (Please comment) Medium 05/17/2018 3 yeast infections in 6 weeks after starting Morphine And Related 09/16/1997 Hallucinations Tetanus Toxoid Other (Please comment) 06/15/2011 Passed out documented as of this encounter (statuses as of 08/09/2019) Medications Medication Sig Dispensed Refills Start Date [...] 2 08/01/2018 Active levothyroxine (LEVOXYL) 200 MCG TabletIndications:P ostsurgical [...] 5 01/01/2019 Active Blood Glucose Monitoring Suppl (MyoKardiaUCH ULTRA 2) w/Device KIT Use to test BG values 1 Kit 0 01/26/2019 Active levothyroxine (LEVOXYL) 25 MCG TabletIndications:P ostsurgical hypothyroidism TAKE ONE TABLET BY MOUTH IN THE MORNING AT LEAST 30 MINUTES PRIOR TO BREAKFAST OR OTHER MEDS 30 Tab 5 02/02/2019 Active metoprolol tartrate (LOPRESSOR) 25 MG TabletIndications:H [...] 30 Tab 5 04/04/2019 Active Glucose Blood (Freta.láTOUCH ULTRA BLUE) STRP Check sugars 3-4 times daily 400 Strip 2 04/21/2019 Active furosemide (LASIX) 40 MG TabletIndications:C hronic diastolic congestive heart failure (HCC) Take 40 mg by mouth daily. 180 Tab 3 05/15/2019 Active oxygen GASIndications:ELISSA (obstructive sleep apnea) 2 L/min(Oxygen). 2 LPM bled through CPAP 11 cwp during all periods of sleep. 0 05/15/2019 Active Vitamin D, Ergocalciferol, 04531 units CapsuleIndications: Vitamin D deficiency Take one [...] Pain, Severe. 90 Tab 0 08/09/2019 Active Semaglutide (OZEMPIC) 0.25 or 0.5 MG/DOSE SOPN Inject 0.25 mg once weekly for 2 weeks and then 0.50 mg weekly 1 Pre-filled Pen Syringe Dosing Unit 5 04/18/2019 9 Discontinu ed(Refill) traMADol (ULTRAM) 50 MG TabletIndications:C hronic pain syndrome Take 1 Tab by mouth every 8 hours as needed for Pain, Severe. 90 Tab 0 05/23/2019 9 Discontinu ed(Refill) documented as of this encounter (statuses as of 08/09/2019) Active Problems Problem Noted Date 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, NYHA class 1 and CKD stage 3 05/14/2019 Other atherosclerosis of tetlin arteries of extremities, left leg 02/26/2019 Lumbar [...] as of this encounter (statuses as of 08/09/2019) Resolved Problems Problem Noted Date Resolved Date [...] as of this encounter (statuses as of 08/09/2019) Immunizations Name Administration Dates Next Due Pneumococcal [...] Reading Time Taken Comments Blood Pressure 110/60 08/09/2019 10:28 AM EST left forearm Pulse 84 08/09/2019 10:28 AM EST Temperature 36.3 C (97.4 F) 08/09/2019 1 0:28 AM EST Respiratory Rate 18 08/09/2019 10:2 8 AM EST Oxygen Saturation 96% 08/09/2019 10: 28 AM EST Inhaled Oxygen Concentration - - Weight 152.9 kg (337 lb 2 oz) 9 10:28 AM EST Height 165.1 cm (5' 5") 08/09/2019 10:2 8 AM EST Body Mass Index 56.1 08/09/2019 10:28 AM EST documented in this encounter Progress Notes * Kevin Whiteside, - 08/09/2019 10:35 AM EST Nursing Notes: Charissa Scanlon LPN 08/09/19 1032 Signed The patient has been properly identified by confirmation of name and date of . Chief Complaint Patient presents with Follow Up pt here to follow up from PT, c/o SOB and pain. pt states lower back pain has improved but now has more pain in upper back and bilateral knee. ASSESSMENT/PLAN: 1. Pap smear for cervical cancer screening Due for screening tree marker exam/pap smear - NEEDLE BOARD REPAIRER REFERRAL OP 2. Type 2 diabetes mellitus with hemoglobin A1c goal of 7.0%-8.0% ([facility]) A1C within goal range Eye and Foot exams: UTD Micro albumen: within goal, will recheck yearly Will recheck A1C in 3-6 months Medication Changes: none ASA prophylaxis: yes Statin Therapy: yes Patient educated on dietary and exercise goals - BASIC METAB PANEL, BMP; Future - Semaglutide,0.25 or 0.5MG/DOS, (OZEMPIC, 0.25 OR 0.5 MG/DOSE,) 2 MG/1.5ML SOPN; Inject 0.5 mg under the skin once a week. Dispense: 3 Pre-filled Pen Syringe Dosing Unit; Refill: 12 - ALBUMIN / CREATININE RATIO, URINE; Future - BASIC METAB PANEL, BMP 3. Uncontrolled type 2 diabetes mellitus with stage 3 chronic kidney disease, with long-term current use of insulin ([facility]) Last set of labs was markedly worse from a renal standpoint - has f/u with nephrology and advised patient to keep to consistent fluid goals. - HEMOGLOBIN A1C; Future - HEMOGLOBIN A1C 4. Body mass index (BMI) of 50.0 to 59.9 in adult ([facility]) Provided education Patient knows her diet is not well controlled 5. Chronic pain of left knee Would like to have surgical replacement now that DMII is under better control - ORTHOPAEDICS REFERRAL OP 6. Chronic pain syndrome Ongoing severe knee pain that is limiting her ability to get around and to do the therapy that has been helpful for her back. - traMADol (ULTRAM) 50 MG Tablet; Take 1 Tab by mouth every 8 hours as needed for Pain, Severe. Dispense: 90 Tab; Refill: 0 HPI: Stephanie Camp is a 64 year old female who: Presents for eval regarding ongoing pain and disabililty. L knee has been very painful, hx of OA, was advised to have it replaced, but only after her DMII was under better control. ROS: CONSTITUTIONAL: no weight loss, no fevers, [...] numbness PSYCH: no SI/HI PHYSICAL EXAMINATION: BP 110/60[left forearm[ | Pulse 84 | Temp (Src) 97.4 (Tympanic) | Resp 18 | Ht 5' 5" (1.651m) | Wt 337 lbs 2 oz (152.919kg) | BMI 56.1 kg/m | BSA 2.65 m | SaO2 96% | LMP 03/11/2003 GENERAL: alert, healthy, no [...] are normal, no rashes or significant lesions MSK:L knee pain to palpation, pain with walking, reduced ROM. 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 Nocturnal hypoxemia G47.34 ELISSA (obstructive sleep apnea) G47.33 Venous insufficiency I87.2 HTN, goal below 130/80 I10 History of pulmonary embolus (PE) Z86.711 Statin intolerance Z78.[address] [place] filter in place Z95.828 Type 2 diabetes mellitus with hemoglobin A1c goal of 7.0%-8.0% ([facility]) E11.9 Fibromyalgia M79.7 Abnormality of gait R26.9 Restless legs syndrome G25.81 Gastroesophageal reflux disease with esophagitis K21.0 Uncontrolled type 2 diabetes mellitus with stage 3 chronic kidney disease, with long-term current use of insulin ([facility]) E11.22, E11.65, N18.3, Z79.4 Body mass index (BMI) of 50.0 to 59.9 in adult ([facility]) Z68.43 Controlled substance agreement signed Z79.899 Chronic diastolic congestive heart failure ([facility]) I50.32 Thoracic back pain M54.6 Mild episode of recurrent major depressive disorder ([facility]) F33.0 Lumbar radiculopathy M54.16 Other atherosclerosis of tetlin arteries of extremities, left leg ([facility]) I70.292 Benign hypertensive heart and kidney disease with diastolic CHF, NYHA class 1 and CKD stage 3 ([facility]) I13.0, I50.30, N18.3 Past Medical History: Diagnosis Date ELSIE (acute kidney injury) ([facility]) 06/12/2018 Allergic rhinitis due to other allergen Backache Diverticulosis of colon 01/28/06 DM type 2, not at goal ([facility]) ELLIE (generalized anxiety disorder) 09/13/2009 Goiter Frank filter in place 08/19/2014 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[facility]) 08/22/2009 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[facility]) 06/12/2018 History of pulmonary embolus (PE) 07/16/2014 HTN, goal below 140/90 Impetigo 09/27/2018 Obesity, BMI not known Perforation of intestine ([facility]) 1996 COLON -- 1996 Pneumonia in aspergillosis(484.6) 09/14/2009 Spontaneous pneumothorax 09/14/2009 Statin intolerance 07/16/2014 Type 2 diabetes mellitus with hemoglobin A1c goal of 7.0%-8.0% ([facility]) 10/14/2014 ICD-10 update of inactive term Vaginal karmen 07/13/2018 Past Surgical History: Procedure Laterality Date ARTHROPLASTY KNEE TOTAL Right 07/24/14 R COLONOSCOPY, DIAGNOSTIC (RECTUM) 02/18/2016 normal, repeat 10 yrs/[facility] COLONOSCOPY, GI REFERRAL OP 01/28/06 diverticulosis--repeat 10 years INCISION OF [place], PLANNED 06/03/2011 TRACHEOSTOMY PLANNED performed by DANNY HOLDER [place] [facility] KNEE ARTHROSCOPY/DEBRIDEMENT 07/[address] PERMANENT GASTROSTOMY TUBE 09/06/09 GASTROSTOMY WITH CONSTUCTION GASTRIC TUBE performed by AMADOU NUNEZ at [place] [facility] REMOVAL OF THYROID GLAND 06/15/2011 THYROIDECTOMY INCLUDING SUBSTERNAL THYROID CERVICAL APPROACH performed by DANNY HOLDER at [place] [facility] REMOVE GALLBLADDER 12/12/09 CHOLECYSTECTOMY performed by AMADOU NUNEZ at [place] [facility] REPAIR RECURRENT INCISIONAL HERNIA 1998 REVISION OF COLOSTOMY, SIMPLE 1998 SUTURE, LARGE INTESTINE W/COLOSTOMY 1996 perforation R colon with colostomy VENA CAVA FILTER/LIGATION/CLIP 08/19/09 Frank filter placement through the right femoral 08/19/[address] Lerma at [facility] Current Outpatient Medications Medication Sig Dispense Refill [...] daily. 90 Tab 3 Vitamin D, Ergocalciferol, 05922 units Capsule Take one capsule by mouth once a week 13 Cap 0 furosemide (LASIX) 40 MG Tablet Take 40 mg by mouth daily. 180 Tab 3 oxygen GAS 2 L/min(Oxygen). 2 LPM bled through CPAP 11 cwp during all periods of sleep. traZODone (DESYREL) 50 MG Tablet Take 1 Tab by mouth at bedtime. 30 Tab 5 insulin aspart (NOVOLOG) 100 UNIT/ML injection Use in insulin pump up to 200 units daily 3 Vial12 rOPINIRole (REQUIP) 2 MG Tablet Take 1 Tab by mouth at bedtime. 90 Tab 3 clobetasol propionate (TEMOVATE) 0.05 % ointment Apply [...] if needed. 400 Box Dosing Unit 3 cyclobenzaprine (FLEXERIL) 10 MG Tablet TAKE [...] 20 MG PO CPDR one tablet daily Glucose Blood (ONETOUCH ULTRA BLUE) STRP Check sugars 3-4 times daily 400 Strip 2 Insulin Pen Needle (BD PEN NEEDLE SHORT U/F) 31G X 8 MM Use 5 times daily with insulin 200 Box Dosing Unit 11 Glucose Blood (ACCU-CHEK HARRIS PLUS) STRP Test [...] (Please comment) Passed out Kevin Whiteside DO [facility] [address] [facility] [place] [address] (This note was completed using the dictation program Fluency Direct. As such, there may be misspellings, word substitutions, or other variations that should not change the essence of the clinical content of this encounter note.If there is need for further clarification, please direct questions to the provider listed above.) documented in this encounter Nursing Notes * Charissa Scanlon LPN - 08/09/2019 10:27 AM EST The patient has been properly identified by confirmation of name and date of . Chief Complaint Patient presents with Follow Up pt here to follow up from PT, c/o SOB and pain. pt states lower back pain has improved but now has more pain in upper back and bilateral knee. documented in this encounter Plan of Treatment Upcoming Encounters Date Type Specialty Care Team Description 08/21/2019 Office Visit Orthopedics Zonia Cheema DO [address] [address] [phone] 08/24/2019 Office Visit Nephrology Gia White MD [address] [address] [phone] 08/27/2019 Pharmacy Pharmacy [facility] [address] [address] 08/28/2019 Home Visit [facility] Teddy Mccrary RN [address] [address] [phone] 09/06/2019 Office Visit Sleep Disorders Celsa Tafoya CRNP [address] [address] [phone] 10/03/2019 Office Visit Gynecology Obstetrics Yumiko Cast CNM [address] [place] [address] [place] [place] [address] [phone] 11/07/2019 Office Visit Family Medicine Kevin Whiteside DO [address] [address] [phone] 02/26/2020 Office Visit Cardiology Rey Woodall MD [address] [address] [phone] Pending Results Name Type Priority Associated Diagnoses Date /Time HEMOGLOBIN A1C Lab Routine Uncontrolled type 2 diabetes mellitus with stage 3 chronic kidney disease, with long-term current use of insulin (HCC) 08/09/2019 11:02 AM EST Scheduled Orders Name Type Priority Associated Diagnoses Orde r Schedule HEMOGLOBIN A1C Lab Routine Uncontrolled type 2 diabetes mellitus with stage 3 chronic kidney disease, with long-term current use of insulin (HCC) Expected: 08/09/2019 (Approximate), Expires: 08/08/2020 ALBUMIN / CREATININE RATIO, URINE Lab Routine Type 2 diabetes mellitus with hemoglobin A1c goal of 7.0%-8.0% (HCC) Expected: 08/09/2019 (Approximate), Expires: 08/08/2020 Scheduled Referrals Name Type Priority Associated Diagnoses Order Schedule NEEDLE BOARD REPAIRER REFERRAL OP Referral Within 10 days (routine) Pap smear for cervical cancer screening Ordered: 08/09/2019 ORTHOPAEDICS REFERRAL OP Referral Within 10 days (routine) Chronic pain of left knee Ordered: 08/09/2019 Health Maintenance Due Date Last Done Comments PAP SMEAR-EVERY 3 YRS,AGES 21-65 05/11/2016 05/11/2013, 03/01/2008, 10/19/2006, Additional history exists CKD PHOS USE SMARTSET 30947 12/29/2018 04/0 01/2018, 08/26/2009, 08/25/2009, Additional history exists DIABETES-HGBA1C EVERY 6 MONTHS 09/13/2019 03/14/2019, 09/27/2018, 05/01/2018, Additional history exists DIABETES-FOOT EXAM 01/02/2020 01/01/2019, 0 12/29/2017, 10/21/2016, Additional history exists CKD GFR USE SMARTSET 21287 01/19/202007/20, 06/15/2019, 05/24/2019, Additional history exists Yearly B-12 03/14/2020 03/14/2019, 05/16/2018 DIABETES-EYE EXAM 04/05/2020 04/05/2019, (Done elsewhere), 12/18/2009, Additional history exists DIABETES-URINE MICROALBUMIN EVERY 12 MONTHS 05/24/2020 05/24/2019, 02/26/2019, 12/23/2018, Additional history exists BREAST CANCER SCREENING DISCUSSION YEARLY AGES 40-75 07/10/2020 07/10/2019, 06/23/2018, 05/09/2015, Additional history exists CKD HGB USE SMARTSET 31871 07/20/202007/20, 02/26/2019, 12/23/2018, Additional history exists Pneumococcal [...] Diagnosis Comments BASIC METAB PANEL, BMP Routine 08/09/2019 11:02 AM EST Type 2 diabetes mellitus with hemoglobin A1c goal of 7.0%-8.0% ([facility]) documented in this encounter Results * BASIC METAB PANEL, BMP (08/09/2019 11:02 AM EST) BUN 35(H) 6 - 20 mg/dL [facility] CREATININE 1.7(H) 0.5 - 1.0 mg/dL [facility] E GLOM FILT RATE 30.9(L)Comment:If patient is , multiply estimated GFR by 1.159. >60 [facility] SODIUM 137 135 - 146 mmol/L [facility] POTASSIUM 4.2 3.5 - 5.1 mmol/L [facility] CHLORIDE 94(L) 98 - 107 mmol/L [facility] CO2 27 22 - 32 mmol/L [facility] ANION GAP 16(H) 7 - 15 mmol/L [facility] GLUCOSE 179(H) 70 - 120 mg/dL [facility] CALCIUM 10.1 8.4 - 10.2 mg/dL [facility] Specimen Performing Organization Address City/State/Zipcod e Phone Number [facility] [address] [place] [address] documented in this encounter Visit Diagnoses Diagnosis Pap smear for cervical cancer screening- Primary Screening for malignant neoplasm of the cervix Type 2 diabetes mellitus with hemoglobin A1c goal of 7.0%-8.0% (HCC) Uncontrolled type 2 diabetes mellitus with stage 3 chronic kidney disease, with long-term current use of insulin (HCC) Body mass index (BMI) of 50.0 to 59.9 in adult (HCC) Chronic pain of left knee Pain in joint, lower leg Chronic pain syndrome documented in this encounter Advance Directives Documents on File Type Date Recorded Patient Barber Stylist Expl anation Advanced Directive 08/22/2009 12:00 AM [...]
--- OUTSIDE RECORDS SUMMARY | 2023-06-01 05:41 | External Medical Summary | Summary of Care ---
Author Name Unknown Organization [place] [address] Care Team Providers Care Cinder Crusher Operator Name Role Phone Stevo Kevin Ocampomelinda Primary Care Provider Reason for Visit * Reason Comments Test Results Encounter Details Date Type Department Care Team Description 07/23/2019 Telephone Family Practice [facility] [address] [place] [address] Rema Gibbons PA-C [address] [facility] [address] [place] [address] Test Results Allergies Active Allergy Reactions Severity Noted Date Comments Pollen 05/18/2019 Heparin 09/04/2009 Heparin Induced Thrombocytopenia Empagliflozin Other (Please comment) Medium 05/17/2018 3 yeast infections in 6 weeks after starting Morphine And Related 09/16/1997 Hallucinations Tetanus Toxoid Other (Please comment) 06/15/2011 Passed out documented as of this encounter (statuses as of 07/23/2019) Medications Medication Sig Dispensed Refills Start Date [...] Each 5 08/01/2018 Active Glucose Blood (ACCU-CHEK HARRSI PLUS) STRP Test [...] 5 01/01/2019 Active Blood Glucose Monitoring Suppl (WSO2 ULTRA 2) w/Device KIT Use to test [...] Tab 0 05/23/2019 Active Vitamin D, Ergocalciferol, 89143 units CapsuleIndications:V itamin D deficiency Take one [...] as of this encounter (statuses as of 07/23/2019) Active Problems Problem Noted Date 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, NYHA class 1 and CKD stage 3 05/14/2019 Other atherosclerosis of [place] arteries of extremities, left leg 02/26/2019 Lumbar [...] as of this encounter (statuses as of 07/23/2019) Resolved Problems Problem Noted Date Resolved Date [...] as of this encounter (statuses as of 07/23/2019) Immunizations Name Administration Dates Next Due Pneumococcal [...] Miscellaneous Notes * Telephone Encounter - Jennifer Cesar LPN - 07/23/2019 10:35 AM EDT Information given to patient as directed. Patient voices understanding Pt will let Dr Whiteside know if she wants to do PT * Telephone Encounter - Rema Gibbons PA-C - 07/23/2019 8:02 AM EDT Please call patient to advise lab work is stable Keep follow up with Dr. Whiteside Recommend physical therapy documented in this encounter Plan of Treatment Upcoming Encounters Date Type Specialty Care Team Description 07/23/2019 Home Visit [facility] Teddy Mccrary RN [address] [address] [phone] 07/25/2019 Office Visit Sleep Disorders Celsa Tafoya CRNP [address] [address] [phone] 08/09/2019 Office Visit Family Medicine Kevin Whiteside DO [address] [address] [phone] 08/24/2019 Office Visit Nephrology Gia White MD [address] [address] [phone] 08/27/2019 Pharmacy Pharmacy [facility] [address] [address] 08/28/2019 Home Visit [facility] Teddy Mccrary RN [address] [place] [address] [phone] 11/07/2019 Office Visit Family Medicine Kevin Whiteside DO [address] [address] [phone] 02/26/2020 Office Visit Cardiology Rey Woodall MD [address] [place] [address] [phone] Health Maintenance Due Date Last Done Comments PAP SMEAR-EVERY 3 YRS,AGES 21-65 05/11/2016 05/11/2013, 03/01/2008, 10/19/2006, Additional history exists CKD PHOS USE SMARTSET 40182 12/29/2018 04/0 01/2018, 08/26/2009, 08/25/2009, Additional history exists Influenza Vaccine (FLU shot) (#1) 2019 06/12/2018, 06/12/2018, 07/14/2017, Additional history exists DIABETES-HGBA1C EVERY 6 MONTHS 09/13/2019 03/14/2019, 09/27/2018, 05/01/2018, Additional history exists DIABETES-FOOT EXAM 01/02/2020 01/01/2019, 0 12/29/2017, 10/21/2016, Additional history exists CKD GFR USE SMARTSET 26159 01/19/202007/20, 06/15/2019, 05/24/2019, Additional history exists Yearly B-12 03/14/2020 03/14/2019, 05/16/2018 DIABETES-EYE EXAM 04/05/2020 04/05/2019, (Done elsewhere), 12/18/2009, Additional history exists DIABETES-URINE MICROALBUMIN EVERY 12 MONTHS 05/24/2020 05/24/2019, 02/26/2019, 12/23/2018, Additional history exists BREAST CANCER SCREENING DISCUSSION YEARLY AGES 40-75 07/10/2020 07/10/2019, 06/23/2018, 05/09/2015, Additional history exists CKD HGB USE SMARTSET 98878 07/20/202007/20, 02/26/2019, 12/23/2018, Additional history exists Pneumococcal Vaccine: Pediatrics (0 to 5 Years) and At-Risk Patients (6 to 64 Years) Completed 08/22/2009, 06/15/2006 MENINGOCOCCAL (MENACTRA) Aged Out No longer eligible based on patient's age to complete this topic documented as of this encounter Implants Not on filedocumented as of this encounter Advance Directives Documents on File Type Date Recorded Patient Grain Trader Expl anation Advanced Directive 08/22/2009 12:00 AM [...]
--- OUTSIDE RECORDS SUMMARY | 2023-06-01 05:41 | External Medical Summary | Summary of Care ---
Author Name Unknown Organization [place] [address] Care Team Providers Care Electrical Logger Name Role Phone Kevin Whiteside DO Primary Care Provider Reason for Visit * Reason Comments Order Request MAMMOGRAM Encounter Details Date Type Department Care Team Description 07/09/2019 Telephone Family Practice [facility] [address] [place] [address] Kevin Whiteside DO [address] [facility] [place] [address] Order Request (MAMMOGRAM) Allergies Active Allergy Reactions Severity Noted Date Comments Pollen 05/18/2019 Heparin 09/04/2009 Heparin Induced Thrombocytopenia Empagliflozin Other (Please comment) Medium 05/17/2018 3 yeast infections in 6 weeks after starting Morphine And Related 09/16/1997 Hallucinations Tetanus Toxoid Other (Please comment) 06/15/2011 Passed out documented as of this encounter (statuses as of 07/11/2019) Medications Medication Sig Dispensed Refills Start Date [...] 5 9 Active Blood Glucose Monitoring Suppl ([employer] ULTRA 2) w/Device KIT Use to [...] 50.0 to 59.9 in adult ([facility]),Hypoxemia,ELISSA (obstructive sleep apnea),HTN, goal below 140/80 [...] at bedtime. 90 Tab 3 9 Active clonazePAM (KLONOPIN) 0.5 MG TabletIndications:A nxiety state TAKE ONE TABLET BY MOUTH TWICE DAILY 60 Tab 2 9 Active insulin aspart (NOVOLOG) 100 UNIT/ML injection Use in insulin pump up to 200 units daily 3 Vial 12 9 Active traZODone (DESYREL) 50 MG Tablet Take 1 Tab by mouth at bedtime. 30 Tab 5 9 Active Semaglutide (OZEMPIC) 0.25 or 0.5 MG/DOSE SOPN Inject 0.25 mg once weekly for 2 weeks and then 0.50 mg weekly 1 Pre-filled Pen Syringe Dosing Unit 5 9 Active Glucose Blood (GizmozTOUCH ULTRA BLUE) STRP Check sugars 3-4 times daily 400 Strip 2 9 Active furosemide (LASIX) 40 MG TabletIndications:C hronic diastolic congestive heart failure (HCC) Take 40 mg by mouth daily. 180 Tab 3 9 Active oxygen GASIndications:ELISSA (obstructive sleep apnea) 2 L/min(Oxygen). 2 LPM bled through CPAP 11 cwp during all periods of sleep. 0 9 Active traMADol (ULTRAM) 50 MG TabletIndications:C hronic pain syndrome Take 1 Tab by mouth every 8 hours as needed for Pain, Severe. 90 Tab 0 9 Active Vitamin D, Ergocalciferol, 37570 units CapsuleIndications: Vitamin D deficiency Take one capsule by mouth once a week 13 Cap 0 9 Active Magnesium Oxide 400 (241.3 mg) Tablet Take 400 mg by mouth daily. 90 Tab 3 9 Active spironolactone (ALDACTONE) 25 MG Tablet Take 1 Tab by mouth daily. 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 Name of Requesting Provider: STEPHANIE Order Requested: MAMMOGRAM Diagnosis/Reason for Request: ROUTINE Does the order need to be faxed somewhere? If so, where?: Fax Number, if applicable: Call Back Number: [phone] PT SCHEDULED FOR 07/10/19. documented in this encounter Plan of Treatment Upcoming Encounters Date Type Specialty Care Team Description 07/16/2019 Pharmacy Pharmacy [facility] [address] [place] [address] 07/17/2019 Home Visit [facility] Teddy Mccrary, RN [address] [place] [address] [phone] 07/25/2019 Office Visit Sleep Disorders Celsa Tafoya CRNP [address] [place] [address] [phone] 08/24/2019 Office Visit Nephrology Gia White MD [address] [place] [address] [phone] 11/07/2019 Office Visit Family Medicine Kevin Whiteside DO [address] [place] [address] [phone] 02/26/2020 Office Visit Cardiology Rey Woodall MD [address] [place] [address] Health Maintenance Due Date Last Done Comments PAP SMEAR-EVERY 3 YRS,AGES 21-65 05/11/2016 05/11/2013, 03/01/2008, 10/19/2006, Additional history exists CKD PHOS USE SMARTSET 79396 12/29/2018 04/0 01/2018, 08/26/2009, 08/25/2009, Additional history exists Influenza Vaccine (FLU shot) (#1) 2019 06/12/2018, 06/12/2018, 07/14/2017, Additional history exists DIABETES-HGBA1C EVERY 6 MONTHS 09/13/2019 03/14/2019, 09/27/2018, 05/01/2018, Additional history exists CKD GFR USE SMARTSET 37271 12/14/201906/15, 05/24/2019, 05/07/2019, Additional history exists DIABETES-FOOT EXAM 01/02/2020 01/01/2019, 0 12/29/2017, 10/21/2016, Additional history exists CKD HGB USE SMARTSET 05346 02/27/202002/26, 12/23/2018, 12/08/2018, Additional history exists Yearly B-12 03/14/2020 03/14/2019, 05/16/2018 DIABETES-EYE EXAM 04/05/2020 04/05/2019, (Done elsewhere), 12/18/2009, Additional history exists DIABETES-URINE MICROALBUMIN EVERY 12 MONTHS 05/24/2020 05/24/2019, 02/26/2019, 12/23/2018, Additional history exists BREAST CANCER SCREENING DISCUSSION YEARLY AGES 40-75 07/10/2020 07/10/2019, 06/23/2018, 05/09/2015, Additional history exists Pneumococcal Vaccine: Pediatrics (0 to 5 Years) and At-Risk Patients (6 to 64 Years) Completed 08/22/2009, 06/15/2006 *DEPRESSION SCREENING,ANNUAL FOR PTS 12 AND OVER Addressed 06/12/2018 Overridden with the intention of not completing the topic MENINGOCOCCAL (MENACTRA) Aged Out No longer eligible based on patient's age to complete this topic documented as of this encounter Implants Not on filedocumented as of this encounter Procedures Procedure Name Priority Date/Time Associated Diagnosis Comments MAMMOGRAM SCREENING BILATERAL Routine 07/10/2019 2:23 PM EDT Encounter for screening mammogram for breast cancer documented in this encounter Results * MAMMOGRAM SCREENING BILATERAL (07/10/2019 2:23 PM EDT) Specimen Narrative Performed At Result MAMMOGRAM SCREENING BILATERAL History Encounter for screening mammogram for breast cancer The patient has no documented relevant family history. The patient has no documented history of hormone use. The patient has no documented history of relevant surgical procedures. The patient has no documented relevant medical history. Films Compared Compared to: 06/23/2018 MAMMOGRAM SCREENING BILATERAL, 05/09/2015 MAMMOGRAM, DIAGNOSTIC, UNILAT, 07/12/2014 MAMMOGRAM, DIAGNOSTIC, BILAT, 07/04/2014 MAMMOGRAM, SCREENING, BILAT, 02/22/2014 MAMMOGRAM, DIAGNOSTIC, UNILAT, 07/24/2013 MAMMOGRAM, DIAGNOSTIC, UNILAT, 06/29/2013 MAMMOGRAM, SCREENING, BILAT, and 09/16/2011 MAMMOGRAM, SCREENING, BILAT Findings The breasts are almost entirely fatty. No new dominant mass or clustered microcalcifications suspicious for malignancy are identified. Impression Bilateral No mammographic evidence of malignancy. BI-RADS Category: 2 - Benign. Recommendation Screening mammogram in 1 year is recommended for both breasts. This digital mammogram has been analyzed with the computer aided detection system. This notice contains the results of your recent mammogram, including information about breast density. If your mammogram shows that your breast tissue is dense, you should know that dense breast tissue is a common finding and is not abnormal. Statistics show many women could have dense or highly dense breasts. Dense breast tissue can make it harder to find cancer on a mammogram and may be associated with an increased risk of cancer. This information about the result of your mammogram is given to you to raise your awareness and to inform your conversations with your physician. Together, you can decide which screening options are right for you, based on your mammogram results, individual risk factors or physical examination. A report of your results was sent to your physician. Your mammographic breast density on today's study is described above. There are four categories of breast density on mammography. Fatty breasts and those with scattered fibroglandular tissue are not considered dense. Heterogeneously dense or extremely dense tissue is considered "dense". Please understand that assessment of breast density may vary from year to year. documented in this encounter Visit Diagnoses Diagnosis Encounter for screening mammogram for breast cancer- Primary documented in this encounter Advance Directives Documents on File Type Date Recorded Patient Forensic Ballistics Expert Expl anation Advanced Directive 08/22/2009 12:00 [...]
--- OUTSIDE RECORDS SUMMARY | 2023-06-01 05:41 | External Medical Summary ---
Author Name Unknown Address [address] [facility] [place] [address] Phone Organization K0G:[facility] [address] [facility] [place] [address] Laboratory Report Ordering Provider Test Date Status AMPARO GUADALUPE 07/20/2019 10:42:00 Final Observation Date Value Abnormality Reference Status BUN 07/20/2019 12:21 43 Above high normal 6-20 Final Creatinine 07/20/2019 12:21 1.7 Above high normal 0.5- 1.0 Final Performing Location [facility] [address] [place] [address]
--- OUTSIDE RECORDS SUMMARY | 2023-06-01 05:41 | External Medical Summary | Summary of Care ---
Author Name Unknown Organization [place] [address] Care Team Providers Care Application Manager Name Role Phone Kevin Whiteside Primary Care Provider Reason for Visit * Reason Comments [facility]: Maintenance Encounter Details Date Type Department Care Team Description 07/17/2019 [facility] [address] [facility] [place] [address] Teddy Mccrary RN [address] [facility] [place] [address] [phone] Uncontrolled type 2 diabetes mellitus with stage 3 chronic kidney disease, with long-term current use of insulin ([facility])*; Benign hypertensive heart and kidney disease with diastolic CHF, NYHA class 1 and CKD stage 3 ([facility]) Allergies Active Allergy Reactions Severity Noted Date Comments Pollen 05/18/2019 Heparin 09/04/2009 Heparin Induced Thrombocytopenia Empagliflozin Other (Please comment) Medium 05/17/2018 3 yeast infections in 6 weeks after starting Morphine And Related 09/16/1997 Hallucinations Tetanus Toxoid Other (Please comment) 06/15/2011 Passed out documented as of this encounter (statuses as of 07/17/2019) Medications Medication Sig Dispensed Refills Start Date [...] [facility]) Take 1 Cap by mouth 3 times a day. 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, NYHA class 1 and CKD stage 3 05/14/2019 Other atherosclerosis of [place] arteries of extremities, left leg 02/26/2019 Lumbar [...] as of this encounter (statuses as of 07/17/2019) Resolved Problems Problem Noted Date Resolved Date [...] as of this encounter (statuses as of 07/17/2019) Immunizations Name Administration Dates Next Due Pneumococcal [...] Sign Reading Time Taken Comments Blood Pressure 107/60 07/17/2019 1:36 PM EDT Pulse 94 07/17/2019 1:36 PM EDT Temperature 35.9 C (96.7 F) 07/17/2019 1:36 PM ED T Respiratory Rate - - Oxygen Saturation 98% 07/17/2019 1:36 PM EDT room air Inhaled Oxygen Concentration - - Weight - - Height - - Body Mass Index - - documented in this encounter Progress Notes * Teddy Mccrary RN - 07/17/2019 1:27 PM EDT [facility]/Medical Interpreter Monthly Visit Date: 07/17/2019 Time: 1:44 PM Name: Stephanie Camp : 1955 Current Concerns: Seeing pt for routine return visit. Fluid balance looks stable today. Ankles with trace edema bilaterally. Lungs clear. Has been on room air inside since I arrived, pulse ox okay (97-98%) Pt reports weight is 330 lbs today (no change). Pt reports "I feel a little wobbly today; I think its related to the fact that Mary been out of Klonopin for the last 3-4 days." "Im going to diamond picker my meds tomorrow" Renal function labs improved according to 06/15 labs. Reports she's been doing well with sodium and fluid restrictions Physical Exam: BP 107/60 | Pulse 94 | Temp (Src) 96.7 (Tympanic) | SaO2 98[room air[% | LMP 03/11/2003 Pain 6 fibromyalgia (head, neck aches) Physical Exam Constitutional: She is oriented to person, place, and time. Abdominal: Soft. Could not hear any bowel sounds (abd very large) Musculoskeletal: She exhibits edema (trace fooot/anlkle edema). Neurological: She is alert and oriented to person, place, and time. Skin: Skin is warm and dry. Psychiatric: She has a normal mood and affect. Problems/Symptoms: Review of Systems Respiratory: Negative. Cardiovascular: Negative. Gastrointestinal: Negative. Genitourinary: Negative. Pt trated herself for "yeast infection" several week ago, but now feels much better Skin: Negative. Neurological: Negative. Psychiatric/Behavioral: Negative. Medication Reconciliation: (See medication list) Does patient take medications as ordered: Yes Patient Well Being: PHQ2/9: @[id number]@ Pt is stable from fluid retention and respiratory standpoints Has the patient been feeling optimistic about the future?: Yes (06/20/2019 12:00 PM) SNP Member: No Advanced Care Planning: Living Will. 1. Less pain 2. Maintain fluid balance 3. Continue to breathe better Reinforcement/Education: Reinforced medication regimen. Timing. Treatment/Plan: Treatment(s) Given: Evaluation Patient's 'Red Flags': 4. Worsening pain 5. Worsening fluid balance 6. Worsening breathing Patient Needs to Remember: Call [facility] for red flags Follow Up: Patient encouraged to call the intake phone number for all urgent but not emergent issues. Is the patient new to [facility] within the last 30 days? No, Assess appropriateness for upcoming telehealth visits. Cancel telehealth visits & schedule home visit with care trampoline team coach(s)as indicated. Scheduled to follow up with patient in 6 days for flu shot, 5-6 weeks for full return visit. Teddy Mccrary RN 07/17/2019 1:44 PM documented in this encounter Plan of Treatment Upcoming Encounters Date Type Specialty Care Team Description 07/23/2019 Home Visit [facility] Teddy Mccrary RN [address] [place] [address] [phone] 07/25/2019 Office Visit Sleep Disorders Celsa Tafoya CRNP [address] [place] [address] [phone] 08/24/2019 Office Visit Nephrology Gia White MD [address] [place] [address] [phone] 08/27/2019 Pharmacy Pharmacy [facility] [address] [place] [address] 08/28/2019 Home Visit [facility] Teddy Mccrary RN [address] [place] [address] [phone] 11/07/2019 Office Visit Family Medicine Kevin Whiteside DO [address] [place] [address] [phone] 02/26/2020 Office Visit Cardiology Rey Woodall MD [address] [place] [address] [phone] Health Maintenance Due Date Last Done Comments PAP SMEAR-EVERY 3 YRS,AGES 21-65 05/11/2016 05/11/2013, 03/01/2008, 10/19/2006, Additional history exists CKD PHOS USE SMARTSET 99497 12/29/2018 04/0 01/2018, 08/26/2009, 08/25/2009, Additional history exists Influenza Vaccine (FLU shot) (#1) 2019 06/12/2018, 06/12/2018, 07/14/2017, Additional history exists DIABETES-HGBA1C EVERY 6 MONTHS 09/13/2019 03/14/2019, 09/27/2018, 05/01/2018, Additional history exists CKD GFR USE SMARTSET 84337 12/14/201906/15, 05/24/2019, 05/07/2019, Additional history exists DIABETES-FOOT EXAM 01/02/2020 01/01/2019, 0 12/29/2017, 10/21/2016, Additional history exists CKD HGB USE SMARTSET 54772 02/27/202002/26, 12/23/2018, 12/08/2018, Additional history exists Yearly [...] long-term current use of insulin (HCC)- Primary Benign hypertensive heart and kidney disease with diastolic CHF, NYHA class 1 and CKD stage 3 (HCC) documented in this encounter Advance Directives Documents on File Type Date Recorded Patient Tosser Expl anation Advanced Directive 08/22/2009 12:00 AM [...]
--- OUTSIDE RECORDS SUMMARY | 2023-06-01 05:41 | External Medical Summary | Summary of Care ---
Author Name Unknown Organization [place] [address] Care Team Providers Care Gunner'S Mate G Name Role Phone Kevin Whiteside Primary Care Provider Encounter Details Date Type Department Care Team Description 07/03/2019 Orders Only [facility] [address] [place], [place] [id number] Humberto Cahirez CHRA [facility] Other*[id number] Allergies Active Allergy Reactions Severity Noted Date Comments Pollen 05/18/2019 Heparin 09/04/2009 Heparin Induced Thrombocytopenia Empagliflozin Other (Please comment) Medium 05/17/2018 3 yeast infections in 6 weeks after starting Morphine And Related 09/16/1997 Hallucinations Tetanus Toxoid Other (Please comment) 06/15/2011 Passed out documented as of this encounter (statuses as of 07/03/2019) Medications Medication Sig Dispensed Refills Start Date [...] 5 01/01/2019 Active Blood Glucose Monitoring Suppl ([employer]ing ULTRA 2) w/Device KIT Use to test [...] in adult ([facility]),Hypoxemia,ELISSA (obstructive sleep apnea),HTN, goal below 140/80 [...] at bedtime. 90 Tab 3 03/07/2019 Active clonazePAM (KLONOPIN) 0.5 MG TabletIndications:An xiety state TAKE ONE TABLET BY MOUTH TWICE DAILY 60 Tab 2 03/14/2019 Active insulin aspart (NOVOLOG) 100 UNIT/ML injection [...] Pain, Severe. 90 Tab 0 05/23/2019 Active spironolactone (ALDACTONE) 25 MG Tablet Take 1 Tab by mouth daily. 0 05/24/2019 Active Vitamin D, Ergocalciferol, 32390 units CapsuleIndications:V itamin D deficiency Take one capsule by mouth once a week 13 Cap 0 06/18/2019 Active Magnesium Oxide 400 (241.3 mg) Tablet Take 400 mg by mouth daily. 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, NYHA class 1 and CKD stage 3 05/14/2019 Other atherosclerosis of [place] arteries of extremities, left leg 02/26/2019 Lumbar [...] 10/14/2014 Overview: ICD-10 update of inactive term [place] filter in place 08/19/2014 History of pulmonary [...] as of this encounter (statuses as of 07/03/2019) Resolved Problems Problem Noted Date Resolved Date [...] as of this encounter (statuses as of 07/03/2019) Immunizations Name Administration Dates Next Due Pneumococcal [...] Encounters Date Type Specialty Care Team Description 07/03/2019 Home Visit [facility] Teddy Mccrary RN [address] [facility] [place] [address] [phone] 07/10/2019 Office Visit Sleep Disorders Celsa Tafoya CRNP [address] [place] [address] [phone] 07/11/2019 Pharmacy Pharmacy [facility] [address] [facility] [place] [address] 08/24/2019 Office Visit Nephrology Gia White MD [address] [facility] [place] [address] [phone] 11/07/2019 Office Visit Family Medicine [facility]iteside DO [address] [facility] [place] [address] [phone] 02/26/2020 Office Visit Cardiology Rey Woodall MD [address] [facility] [place] [address] [phone] Scheduled Orders Name Type Priority Associated Diagnoses Orde r Schedule MYCODE SUBSEQUENT ADULT Lab Routine [facility] Other*[id number] Every 6 Months for 2 Occurrences starting 07/03/2019 until 07/22/2020 Health Maintenance Due Date Last Done Comments PAP SMEAR-EVERY 3 YRS,AGES 21-65 05/11/2016 05/11/2013, 03/01/2008, 10/19/2006, Additional history exists CKD PHOS USE SMARTSET 37001 12/29/2018 04/0 01/2018, 08/26/2009, 08/25/2009, Additional history exists Influenza Vaccine (FLU shot) (#1) 2019 06/12/2018, 06/12/2018, 07/14/2017, Additional history exists BREAST CANCER SCREENING DISCUSSION YEARLY AGES 40-75 06/23/2019 06/23/2018, 05/09/2015, 07/12/2014, Additional history exists DIABETES-HGBA1C EVERY 6 MONTHS 09/13/2019 03/14/2019, 09/27/2018, 05/01/2018, Additional history exists CKD GFR USE SMARTSET 65084 12/14/201906/15, 05/24/2019, 05/07/2019, Additional history exists DIABETES-FOOT EXAM 01/02/2020 01/01/2019, 0 12/29/2017, 10/21/2016, Additional history exists CKD HGB USE SMARTSET 22488 02/27/202002/26, 12/23/2018, 12/08/2018, Additional history exists Yearly B-12 03/14/2020 03/14/2019, 05/16/2018 DIABETES-EYE EXAM 04/05/2020 04/05/2019, (Done elsewhere), 12/18/2009, Additional history exists DIABETES-URINE MICROALBUMIN EVERY 12 MONTHS 05/24/2020 05/24/2019, 02/26/2019, 12/23/2018, Additional history exists Pneumococcal Vaccine: [...] this encounter Visit Diagnoses Diagnosis [facility] Other*[id number] documented in this encounter Advance Directives Documents on File Type Date Recorded Patient Uniform Patrol Police Officer Expl anation Advanced Directive 08/22/2009 12:00 [...]
--- OUTSIDE RECORDS SUMMARY | 2023-06-01 05:41 | External Medical Summary | Summary of Care ---
Author Name Unknown Organization [place] [address] Care Team Providers Care Salary And Wage Administrator Name Role Phone Migue Whiteside DO Primary Care Provider Reason for Visit * Reason Comments Medication Refill Encounter Details Date Type Department Care Team Description 07/10/2019 Refill Family Practice [facility] [address] [place] [address] Migue Whiteside DO [address] [facility] [place] [address] Allergies Active Allergy Reactions Severity Noted Date Comments Pollen 05/18/2019 Heparin 09/04/2009 Heparin Induced Thrombocytopenia Empagliflozin Other (Please comment) Medium 05/17/2018 3 yeast infections in 6 weeks after starting Morphine And Related 09/16/1997 Hallucinations Tetanus Toxoid Other (Please comment) 06/15/2011 Passed out documented as of this encounter (statuses as of 07/10/2019) Medications Medication Sig Dispensed Refills Start Date [...] goal of 7.0%-8.0% ([facility]) Take 1 Cap by mouth 3 times a day. 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 Authorizing Provider: MIGUE WHITESIDE * Telephone Encounter - Kriss Bishop, director of marketing operations - 07/10/2019 3:00 PM EDT Pharmacy states rx was changed to 25 mg at the hospital. Pending Prescriptions: Disp Refills spironolactone (ALDACTONE) 25 MG Tablet 30 Tab 0 Sig: Take 1 Tab by mouth daily. Last Office Visit: 05/15/2019 Next Office Visit: 11/07/2019 Scheduled Provider(s): Migue Whiteside, DO If no future appointments scheduled, and last appointment is greater than a year ago, please schedule patient for a follow-up appointment Last date the medication was ordered: 05/24/19 Pharmacy: [id number] Is this request for a controlled [...] Results Component Value Date/Time CREAT 1.5 (H) 06/15/2019 01:59 PM POTASSIUM 4.3 06/15/2019 01:59 PM TSH 0.88 03/14/2019 01:54 PM LDLCALC UNINTERPRETABLE RESULT 03/14/2019 01:54 PM LDLDIRECT 109 07/14/2017 12:35 PM ALT 17 05/24/2019 02:43 PM HGBA1C 9.4 (H) 03/14/2019 01:54 PM documented in this encounter Plan of Treatment Upcoming Encounters Date Type Specialty Care Team Description 07/16/2019 Pharmacy Pharmacy [facility] [place] [address] [place] [address] 07/17/2019 Home Visit [facility] Teddy Mccrary RN [address] [place] [address] [phone] 07/25/2019 Office Visit Sleep Disorders Celsa Tafoya CRNP [address] [place] [address] [phone] 08/24/2019 Office Visit Nephrology Gia White MD [address] [facility] [place] [address] 11/07/2019 Office Visit Family Medicine Migue Whiteside DO [address] [place] [address] [phone] 02/26/2020 Office Visit Cardiology Rey Woodall MD [address] [place] [address] Health Maintenance Due Date Last Done Comments PAP SMEAR-EVERY 3 YRS,AGES 21-65 05/11/2016 05/11/2013, 03/01/2008, 10/19/2006, Additional history exists CKD PHOS USE SMARTSET 31732 12/29/2018 04/0 01/2018, 08/26/2009, 08/25/2009, Additional history exists Influenza Vaccine (FLU shot) (#1) 2019 06/12/2018, 06/12/2018, 07/14/2017, Additional history exists BREAST CANCER SCREENING DISCUSSION YEARLY AGES 40-75 06/23/2019 06/23/2018, 05/09/2015, 07/12/2014, Additional history exists DIABETES-HGBA1C EVERY 6 MONTHS 09/13/2019 03/14/2019, 09/27/2018, 05/01/2018, Additional history exists CKD GFR USE SMARTSET 54001 12/14/201906/15, 05/24/2019, 05/07/2019, Additional history exists DIABETES-FOOT EXAM 01/02/2020 01/01/2019, 0 12/29/2017, 10/21/2016, Additional history exists CKD HGB USE SMARTSET 01697 02/27/202002/26, 12/23/2018, 12/08/2018, Additional history exists Yearly [...] Documents on File Type Date Recorded 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
--- OUTSIDE RECORDS SUMMARY | 2023-06-01 05:41 | External Medical Summary ---
Author Name Unknown Address [address] [place] [address] Phone Organization K0G:[facility] 132 [facility] [place] [address] Laboratory Report Ordering Provider Test Date Status AMPARO GUADALUPE 07/20/2019 10:42:00 Final Observation Date Value Abnormality Reference Status WBC, Total 07/20/2019 11:11 11.50 Above high normal 4.00 -10.80 Final RBC 07/20/2019 11:11 4.56 3.85-5.15 Fin al Hemoglobin 07/20/2019 11:11 13.6 12.0-15.3 Fi nal HCT 07/20/2019 11:11 44.1 36.0-45.2 Fin al MCV 07/20/2019 11:11 96.7 81.5-97.5 Fin al MCH 07/20/2019 11:11 29.8 27.0-34.0 Fin al MCHC 07/20/2019 11:11 30.8 Below low normal 32.0-3 6.0 Final RDW 07/20/2019 11:11 15.1 11.5-15.5 Fin al Platelets 07/20/2019 11:11 265 140-400 Fin al MPV 07/20/2019 11:11 9.8 6.6-11.1 Fin al Segs 07/20/2019 11:17 74.3 40-75 Fin al Lymphs % 07/20/2019 11:17 17.1 Below low normal 18-42 Final Monos 07/20/2019 11:17 5.3 1-11 Fin al Eosinophils 07/20/2019 11:17 3.0 0-6 F inal Basos 07/20/2019 11:17 0.3 0-2 Fin al Neutrophils Bld 07/20/2019 11:17 8.53 Above high normal 1.8-7.7 Final Lymphs, absolute 07/20/2019 11:17 1.97 1.0-4. 8 Final Monos, Abs 07/20/2019 11:17 0.61 0.0-1.1 Fi nal Eos, Abs 07/20/2019 11:17 0.35 0.0-0.7 Fin al Basos, Abs 07/20/2019 11:17 0.04 0.0-0.2 Fi nal Performing Location [address] [address]
--- OUTSIDE RECORDS SUMMARY | 2023-06-01 05:41 | External Medical Summary | Summary of Care ---
Author Name Unknown Organization [place] [address] Care Team Providers Care Brass Plater Name Role Phone Kevin Whiteside Primary Care Provider Encounter Details Date Type Department Care Team Description 06/20/2019 [facility] [address] [facility] [place] [address] [facility] [address] [facility] [place] [address] [phone] Benign hypertensive heart and kidney disease with diastolic CHF, NYHA class 1 and CKD stage 3 ([facility]) Allergies Active Allergy Reactions Severity Noted Date Comments Pollen 05/18/2019 Heparin 09/04/2009 Heparin Induced Thrombocytopenia Empagliflozin Other (Please comment) Medium 05/17/2018 3 yeast infections in 6 weeks after starting Morphine And Related 09/16/1997 Hallucinations Tetanus Toxoid Other (Please comment) 06/15/2011 Passed out documented as of this encounter (statuses as of 06/26/2019) Medications Medication Sig Dispensed Refills Start Date [...] 5 01/01/2019 Active Blood Glucose Monitoring Suppl ([employer] ULTRA 2) w/Device KIT Use to test [...] Dosing Unit 5 04/18/2019 Active Glucose Blood (SnaptivaTOUCH ULTRA BLUE) STRP Check sugars 3-4 times [...] daily. 0 05/24/2019 Active Vitamin D, Ergocalciferol, 32970 units CapsuleIndications:V itamin D deficiency Take one capsule by mouth once a week 13 Cap 0 06/18/2019 Active Magnesium Oxide 400 (241.3 mg) Tablet Take 400 mg by mouth daily. 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, NYHA class 1 and CKD stage 3 05/14/2019 Other atherosclerosis of [place] arteries of extremities, left leg 02/26/2019 Lumbar [...] as of this encounter (statuses as of 06/26/2019) Resolved Problems Problem Noted Date Resolved Date [...] as of this encounter (statuses as of 06/26/2019) Immunizations Name Administration Dates Next Due Pneumococcal [...] this encounter Progress Notes * Saira Salmon [facility] Human Resource Professional - 06/20/2019 12:36 PM EDT [facility] Human Resource Professional Visit Date: 06/20/2019 Time: 12:41 PM Name: Stephanie Camp : 1955 Source of Information: patient Condition Changes: Are there any changes in medical condition since last visit? Medications: Are there any changes in medication management since last visit? Magnesium increase Health Concerns: Does the patient have any health concerns since last visit? Plan: SS $992 early senior care Annuity $200 Pt to obtain documentation regarding her POA for her chart. 5 Wishes left for completion/witnesses. Pt will call when 5 Wishes is completed. Follow Up: Patient encouraged to call the intake phone number for all urgent but not emergent issues. Scheduled to follow up with patient as needed. Saira Salmon [facility] Human Resource Professional 06/20/2019 12:41 PM Electronically signed by Saira Salmon [facility] Human Resource Professional at 06/26/2019 6:43 AM EDT documented in this encounter Miscellaneous Notes * ACP (Advance Care Planning) - Saira Salmon [facility] Human Resource Professional - 06/20/2019 12:57 PMEDT 06/20/19 Galdino/Shayy Camp POA medical/financial. Pt will get documents to scan into chart. 5 Wishes left with pt to complete. documented in this encounter Plan of Treatment Upcoming Encounters Date Type Specialty Care Team Description 06/29/2019 Pharmacy Pharmacy [facility] [place] [address] [facility] [place] [address] 07/03/2019 [facility] Teddy Mccrary RN [address] [facility] [place] [address] [phone] 07/10/2019 Office Visit Sleep Disorders Celsa Tafoya CRNP [address] [facility] [place] [address] [phone] 08/24/2019 Office Visit Nephrology [facility] [address] [place] [address] [phone] 11/07/2019 Office Visit Family Medicine Kevin Whiteside DO [facility] [place] [address] [phone] 02/26/2020 Office Visit Cardiology Rey Woodall MD [address] [facility] [place] [address] [phone] Health Maintenance Due Date Last Done Comments PAP SMEAR-EVERY 3 YRS,AGES 21-65 05/11/2016 05/11/2013, 03/01/2008, 10/19/2006, Additional history exists CKD PHOS USE SMARTSET 01282 12/29/2018 04/01/2018, 08/26/2009, 08/25/2009, Additional history exists Influenza Vaccine (FLU shot) (#1) 2019 06/12/2018, 06/12/2018, 07/14/2017, Additional history exists BREAST CANCER SCREENING DISCUSSION YEARLY AGES 40-75 06/23/2019 06/23/2018, 05/09/2015, 07/12/2014, Additional history exists DIABETES-HGBA1C EVERY 6 MONTHS 09/13/2019 03/14/2019, 09/27/2018, 05/01/2018, Additional history exists CKD GFR USE SMARTSET 63622 12/14/201906/15, 05/24/2019, 05/07/2019, Additional history exists DIABETES-FOOT EXAM 01/02/2020 01/01/2019, 0 12/29/2017, 10/21/2016, Additional history exists CKD HGB USE SMARTSET 04532 02/27/202002/26, 12/23/2018, 12/08/2018, Additional history exists Yearly [...] on File Type Date 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
--- OUTSIDE RECORDS SUMMARY | 2023-06-01 05:41 | External Medical Summary | Summary of Care ---
Author Name Unknown Organization [place] [address] Care Team Providers Care Quality Systems Specialist Name Role Phone Kevin Whiteside Primary Care Provider Reason for Visit * Reason Comments Dosage Adjustment In Person (Anticoag Cl inic) Diabetes Follow-Up Encounter Details Date Type Department Care Team Description 07/16/2019 Pharmacy Pharmacy[facility] [address] [facility] [place] [address] [facility] [address] [place] [address] Uncontrolled type 2 diabetes mellitus with stage 3 chronic kidney disease, with long-term current use of insulin ([facility])*; Type 2 diabetes mellitus with hemoglobin A1c goal of 7.0%-8.0% ([facility]) Allergies Active Allergy Reactions Severity Noted Date Comments Pollen 05/18/2019 Heparin 09/04/2009 Heparin Induced Thrombocytopenia Empagliflozin Other (Please comment) Medium 05/17/2018 3 yeast infections in 6 weeks after starting Morphine And Related 09/16/1997 Hallucinations Tetanus Toxoid Other (Please comment) 06/15/2011 Passed out documented as of this encounter (statuses as of 07/16/2019) Medications Medication Sig Dispensed Refills Start Date [...] 5 01/01/2019 Active Blood Glucose Monitoring Suppl (SecernoTOUCH ULTRA 2) w/Device KIT Use to test [...] Dosing Unit 5 04/18/2019 Active Glucose Blood (SecernoTOUCH ULTRA BLUE) STRP Check sugars 3-4 times [...] Tab 0 05/23/2019 Active Vitamin D, Ergocalciferol, 47736 units CapsuleIndications:V itamin D deficiency Take one [...] as of this encounter (statuses as of 07/16/2019) Active Problems Problem Noted Date 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, NYHA class 1 and CKD stage 3 05/14/2019 Other atherosclerosis of [place] arteries of extremities, left leg 02/26/2019 Lumbar [...] 10/14/2014 Overview: ICD-10 update of inactive term [place] filter in place 08/19/2014 History of pulmonary [...] as of this encounter (statuses as of 07/16/2019) Resolved Problems Problem Noted Date Resolved Date [...] as of this encounter (statuses as of 07/16/2019) Immunizations Name Administration Dates Next Due Pneumococcal [...] Progress Notes * Rose Barton, [facility] - 07/16/2019 9:05 AM EDT Medication Therapy Disease Management CSII Follow-up Interval History: Stephanie Camp is an 64 year old year old female returning to the [facility] Management [facility] for a diabetes insulin pump follow-up visit. Blood glucose control since last visit: improved Medication intolerance: no Medication compliance: yes Hospitalization or ED Utilization since last visit: no Hypoglycemia requiring assistance since last visit: no Diabetes Medications: Ozempic 0.50 mg weekly Medtronic 630G Insulin Pump (Serial Number: [id number]) Infusion Set: SureT Insulin: Novolog Basal Rate: 4.25 units/hour Bolus: 20 units with breakfast, 20units with lunch and 20units with supper and 8 units with bedtimesnack Bolus wizard: on and using ICR: 4 ISF: 14 Blood Glucose Goals: 120-150 Active Insulin Time: 4 hours Carelink Blood Glucose Review: s (mg/dL) Hypoglycemia Assessment: 1. Do you know what [...] pulmonary embolus (PE) Z86.711 Statin intolerance Z78.[address] [place] [address] Z95.828 Type 2 diabetes mellitus with hemoglobin A1c goal of 7.0%-8.0% ([facility]) E11.9 Fibromyalgia M79.7 Abnormality of gait R26.9 Restless legs syndrome G25.81 Gastroesophageal reflux disease with esophagitis K21.0 Uncontrolled type 2 diabetes mellitus with stage 3 chronic kidney disease, with long-term current use of insulin ([facility]) E11.22, E11.65, N18.3, Z79.4 Body mass index (BMI) of 50.0 to 59.9 in adult ([facility]) Z68.43 Controlled substance agreement signed Z79.899 Chronic diastolic congestive heart failure ([facility]) I50.32 Thoracic back pain M54.6 Mild episode of recurrent major depressive disorder ([facility]) F33.0 Lumbar radiculopathy M54.16 Other atherosclerosis of [place] arteries of extremities, left leg ([facility]) I70.292 Benign hypertensive heart and kidney disease with diastolic CHF, NYHA class 1 and CKD stage 3 ([facility]) I13.0, I50.30, N18.3 Review of patient's allergies [...] daily. 90 Tab 3 Vitamin D, Ergocalciferol, 31710 units Capsule Take one capsule by mouth once a week 13 Cap 0 traMADol (ULTRAM) 50 MG Tablet Take 1 Tab by mouth every 8 hours as needed for Pain, Severe. 90 Tab0 furosemide (LASIX) 40 MG Tablet Take 40 mg by mouth daily. 180 Tab 3 oxygen GAS 2 L/min(Oxygen). 2 LPM bled through CPAP 11 cwp during all periods of sleep. Glucose Blood (SecernoTOUCH ULTRA BLUE) STRP Check sugars 3-4 times daily 400 Strip 2 Semaglutide (OZEMPIC) 0.25 or 0.5 MG/DOSE SOPN Inject 0.25 mg once weekly for 2 weeks and then 0.50mg weekly (Patient taking differently: 0.5 mg once a week. Inject 0.50 mg weekly) 1 Pre-filled Pen Syringe Dosing Unit 5 traZODone (DESYREL) 50 MG Tablet Take 1 [...] tablet daily Objective: The ASCVD Risk score (Freddy JOHNS JrRonald, et al., 2013) failed to calculate for the following reasons: The patient has a prior VA or stroke diagnosis Estimated body mass index is 54.58 kg/m as calculated from the following: Height as of 01/23/19: 1.651 m (5' 5"). Weight as of 06/15/19: 148.8 kg (328 lb). BP Readings from Last 3 Encounters: 06/15/19 122/80 06/06/19 128/78 05/24/19 108/64 No POC orders found HEMOGLOBIN, A1C(%) Nessa Dt/Tm Resulted Value Status 03/14/19 1:54P 03/14/19 9.4* FINAL 09/27/18 1:48P 09/27/18 9.5* FINAL 05/01/18 9:12A 05/01/18 10.0* FINAL MICROALBUMIN RATIO(mg/g creat) Nessa Dt/Tm Resulted Value Status 05/24/19 2:59P 05/24/19 <16 FINAL 05/01/18 9:13A 05/01/18 <18 FINAL 03/03/17 12:37P 03/03/17 <15 FINAL LDL (CALCULATED)(mg/dL) Nessa Dt/Tm Resulted Value Status 03/14/19 1:54P 03/14/19 FINAL Value: UNINTERPRETABLE RESULT BASIC METAB PANEL, BMP Nessa Dt/Tm Resulted Value Status BUN (mg/dL) 06/15/19 1:59P 06/15/19 27* F CREATININE (mg/dL) 06/15/19 1:59P 06/15/19 1.5* F E GLOM FILT RATE ( ) 06/15/19 1:59P 06/15/19 37.0* F SODIUM (mmol/L) 06/15/19 1:59P 06/15/19 136 F POTASSIUM (mmol/L) 06/15/19 1:59P 06/15/19 4.3 F CHLORIDE (mmol/L) 06/15/19 1:59P 06/15/19 94* F CO2 (mmol/L) 06/15/19 1:59P 06/15/19 24 F ANION GAP (mmol/L) 06/15/19 1:59P 06/15/19 18* F GLUCOSE (mg/dL) 06/15/19 1:59P 06/15/19 270* F CALCIUM (mg/dL) 06/15/19 1:59P 06/15/19 10.1 F ALT(U/L) Nessa Dt/Tm Resulted Value Status 05/24/19 2:43P 05/24/19 17 FINAL Assessment & Plan: Glucose control is stable but not at goal, patient will adjust pump settings as noted below. Basal settings Continued as glucose is stable overnight and between meals. ICR/fixed dose strengthend as glucose is rising postprandially. ISF continued as glucose is correcting to goal range. Patient's BG values much improved since last pump download. Patient is now averaging about 150 mg/dl less on average per reading. Recommending more changes to bolus settings to continue to decrease BG values and patient is agreeable. Patient to SMBG at least 4 times daily, before each meal and at bedtime. Patient aware to contact clinic if any hypoglycemia before next visit. Reviewed rule of 15s. Reviewed appropriate management of hyperglycemia as noted in pump start documentation. Diabetes Medications: Ozempic 0.50 mg weekly Medtronic 630G Insulin Pump (Serial Number: [id number]) Infusion Set: SureT Insulin: Novolog Basal Rate: 4.25 units/hour Bolus: 22 units with breakfast, 22 units with lunch and 22 units with supper and 8 units with bedtime snack Bolus wizard: on and using ICR: 4 ISF: 10 Blood Glucose Goals: 120-150 Active Insulin Time: 4 hours Diabetes Health Maintenance: flu shot- will have tomorrow with home nursing Return to Clinic: 6 week(s) Next Office Visit: 08/27/2019 Scheduled Provider(s): [facility] Jeramie Barton [facility] Clinical Pharmacist Medication Therapy Disease Management 07/16/2019, 9:05 AM documented in this encounter Plan of Treatment Upcoming Encounters Date Type Specialty Care Team Description 07/17/2019 [facility] Teddy Mccrary RN [address] [place] [address] [phone] 07/25/2019 Office Visit Sleep Disorders Celsa Tafoya CRNP [address] [place] [address] [phone] 08/24/2019 Office Visit Nephrology Gia White MD [address] [place] [address] [phone] 08/27/2019 Pharmacy Pharmacy [facility] [address] [place] [address] 11/07/2019 Office Visit Family Medicine Kevin Whiteside DO [address] [place] [address] [phone] 02/26/2020 Office Visit Cardiology Rey Woodall MD [address] [place] [address] [phone] Health Maintenance Due Date Last Done Comments PAP SMEAR-EVERY 3 YRS,AGES 21-65 05/11/2016 05/11/2013, 03/01/2008, 10/19/2006, Additional history exists CKD PHOS USE SMARTSET 29151 12/29/2018 04/0 01/2018, 08/26/2009, 08/25/2009, Additional history exists Influenza Vaccine (FLU shot) (#1) 2019 06/12/2018, 06/12/2018, 07/14/2017, Additional history exists DIABETES-HGBA1C EVERY 6 MONTHS 09/13/2019 03/14/2019, 09/27/2018, 05/01/2018, Additional history exists CKD GFR USE SMARTSET 47243 12/14/201906/15, 05/24/2019, 05/07/2019, Additional history exists DIABETES-FOOT EXAM 01/02/2020 01/01/2019, 0 12/29/2017, 10/21/2016, Additional history exists CKD HGB USE SMARTSET 83145 02/27/202002/26, 12/23/2018, 12/08/2018, Additional history exists Yearly [...] Documents on File Type Date Recorded Patient It Integration Architect Expl anation Advanced Directive 08/22/2009 12:00 [...]
--- OUTSIDE RECORDS SUMMARY | 2023-06-01 05:41 | External Medical Summary ---
Author Name Unknown Address [address] [id number] Phone Organization K01:[facility] [address] [id number] Laboratory Report Ordering Provider Test Date Status AMPARO GUADALUPE 07/20/2019 10:42:00 Final Observation Date Value Abnormality Reference Status Magnesium 07/20/2019 18:17 1.9 1.5-2.6 Fin al Performing Location [address] [address]
--- OUTSIDE RECORDS SUMMARY | 2023-06-01 05:41 | External Medical Summary | Summary of Care ---
Author Name Unknown Organization [place] [address] Care Team Providers Care Shuttler Name Role Phone Kevin Whiteside DO Primary Care Provider Reason for Visit * Reason Comments Order Request MAMMOGRAM Encounter Details Date Type Department Care Team Description 07/09/[address] [facility] [address] [place] [address] Kevin Whiteside DO [address] [facility] [place] [address] Order Request (MAMMOGRAM) Allergies Active Allergy Reactions Severity Noted Date Comments Pollen 05/18/2019 Heparin 09/04/2009 Heparin Induced Thrombocytopenia Empagliflozin Other (Please comment) Medium 05/17/2018 3 yeast infections in 6 weeks after starting Morphine And Related 09/16/1997 Hallucinations Tetanus Toxoid Other (Please comment) 06/15/2011 Passed out documented as of this encounter (statuses as of 07/09/2019) Medications Medication Sig Dispensed Refills Start Date [...] 5 01/01/2019 Active Blood Glucose Monitoring Suppl ([employer] - [place] ULTRA 2) w/Device KIT Use to test [...] daily. 0 05/24/2019 Active Vitamin D, Ergocalciferol, 64633 units CapsuleIndications:V itamin D deficiency Take one capsule by mouth once a week 13 Cap 0 06/18/2019 Active Magnesium Oxide 400 (241.3 mg) Tablet Take 400 mg by mouth daily. 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 documented in this encounter Plan of Treatment Upcoming Encounters Date Type Specialty Care Team Description 07/10/2019 Office Visit Sleep Disorders Celsa Tafoya CRNP [address] [place] [address] [phone] 07/10/2019 Imaging Radiology 07/16/2019 Pharmacy Pharmacy [facility] [address] [place] [address] 07/17/2019 [facility] Teddy Mccrary RN [address] [place] [address] [phone] 08/24/2019 Office Visit Nephrology Gia White MD [address] [place] [address] [phone] 11/07/2019 Office Visit Family Medicine Kevin Whiteside DO [address] [place] [address] [phone] 02/26/2020 Office Visit Cardiology Rey Woodall MD [address] [place] [address] [phone] Scheduled Orders Name Type Priority Associated Diagnoses Orde r Schedule MAMMOGRAM SCREENING BILATERAL Medical Imaging Routine Encounter for screening mammogram for breast cancer Ordered: 07/09/2019 Health Maintenance Due Date Last Done Comments PAP SMEAR-EVERY 3 YRS,AGES 21-65 05/11/2016 05/11/2013, 03/01/2008, 10/19/2006, Additional history exists CKD PHOS USE SMARTSET 73191 12/29/2018 04/0 01/2018, 08/26/2009, 08/25/2009, Additional history exists Influenza Vaccine (FLU shot) (#1) 2019 06/12/2018, 06/12/2018, 07/14/2017, Additional history exists BREAST CANCER SCREENING DISCUSSION YEARLY AGES 40-75 06/23/2019 06/23/2018, 05/09/2015, 07/12/2014, Additional history exists DIABETES-HGBA1C EVERY 6 MONTHS 09/13/2019 03/14/2019, 09/27/2018, 05/01/2018, Additional history exists CKD GFR USE SMARTSET 45569 12/14/201906/15, 05/24/2019, 05/07/2019, Additional history exists DIABETES-FOOT EXAM 01/02/2020 01/01/2019, 0 12/29/2017, 10/21/2016, Additional history exists CKD HGB USE SMARTSET 13191 02/27/202002/26, 12/23/2018, 12/08/2018, Additional history exists Yearly [...] on File Type Date Recorded Patient Rn Hyperbaric Expl anation Advanced Directive 08/22/2009 12:00 AM [...]
--- OUTSIDE RECORDS SUMMARY | 2023-06-01 05:41 | External Medical Summary | Summary of Care ---
Author Name Unknown Organization [place] [address] Care Team Providers Care Thread Roller Name Role Phone Kevin Whiteside Primary Care Provider Reason for Visit * Reason Comments Test Results Advice Encounter Details Date Type Department Care Team Description 06/19/2019 Telephone Cardiology, [facility] [address] [employer] [employer] [place] [address] Marjorie Powell PA-C [address] [employer] [place] [address] Test Results; Advice Allergies Active Allergy Reactions Severity Noted [...] 5 9 Active Blood Glucose Monitoring Suppl ([employer] ULTRA 2) w/Device KIT Use to test [...] Dosing Unit 5 9 Active Glucose Blood (ONETOUCH ULTRA [...] Pain, Severe. 90 Tab 0 9 Active spironolactone (ALDACTONE) 25 MG Tablet Take 1 Tab by mouth daily. 0 9 Active Vitamin D, Ergocalciferol, 66484 units CapsuleIndications: Vitamin D deficiency Take one capsule by mouth once a week 13 Cap 0 9 Active Magnesium Oxide 400 (241.3 mg) Tablet Take 400 mg by mouth daily. 90 Tab 3 9 Active Magnesium Oxide 400 (241.3 mg) Tablet Take 400 mg by mouth every other day. 45 Tab 3 9 06/20/20 19 Discontinued documented as of this encounter [...] encounter Miscellaneous Notes * Telephone Encounter - Anthony Garcia LPN - 06/26/2019 1:38 PM EDT Spoke with pt, aware script was called to pharmacy. * Telephone Encounter - Anthony Garcia LPN - 06/20/2019 12:50 PM EDT Order signed by provider. Attempted to contact pt. No answer. Will try again at a later time. Please advise pt that new script was sent to [facility] pharmacy for increased dose of mag ox. * Telephone Encounter - Anthony Garcia LPN - 06/20/2019 10:55 AM EDT Med order pended. * Telephone Encounter - Tasha Bowens OSA - 06/20/2019 7:36 AM EDT Patient returned the call at 7:34am. I read her the message from Marjorie Powell and patient voiced understanding to the change in medication. Does she need an updated prescription sent for the new dose instruction? Please call the patient back regarding this. Thank you. * Telephone Encounter - Marlene Chou LPN - 06/19/2019 4:30 PM EDT Message left on pts voicemail to call office for below information * Telephone Encounter - Marlene Chou LPN - 06/19/2019 4:28 PM EDT ----- Message from Marjorie Powell PA-C sent at 06/18/2019 11:42 AM EDT ----- Magnesium low normal. Increase mag ox 400 mg - 1 tab EVERY day (currently appears she is taking every other day per med list) Renal function improved. Potassium improved documented in this encounter Plan of Treatment Upcoming Encounters Date Type Specialty Care Team Description 06/29/2019 Pharmacy Pharmacy [facility] [address] [place] [address] 07/03/2019 Home Visit [facility] Teddy Mccrary RN [address] [place] [address] [phone] 07/10/2019 Office Visit Sleep Disorders Celsa Tafoya CRNP [address] [place] [address] [phone] 08/24/2019 Office Visit Nephrology Gia White MD [address] [place] [address] [phone] 11/07/2019 Office Visit Family Medicine Kevin Whiteside DO [address] [place] [address] [phone] 02/26/2020 Office Visit Cardiology Rey Woodall MD [address] [place] [address] [phone] Health Maintenance Due Date Last Done Comments PAP SMEAR-EVERY 3 YRS,AGES 21-65 05/11/2016 05/11/2013, 03/01/2008, 10/19/2006, Additional history exists CKD PHOS USE SMARTSET 38340 12/29/2018 04/0 01/2018, 08/26/2009, 08/25/2009, Additional history exists Influenza Vaccine (FLU shot) (#1) 2019 06/12/2018, 06/12/2018, 07/14/2017, Additional history exists BREAST CANCER SCREENING DISCUSSION YEARLY AGES 40-75 06/23/2019 06/23/2018, 05/09/2015, 07/12/2014, Additional history exists DIABETES-HGBA1C EVERY 6 MONTHS 09/13/2019 03/14/2019, 09/27/2018, 05/01/2018, Additional history exists CKD GFR USE SMARTSET 56896 12/14/201906/15, 05/24/2019, 05/07/2019, Additional history exists DIABETES-FOOT EXAM 01/02/2020 01/01/2019, 0 12/29/2017, 10/21/2016, Additional history exists CKD HGB USE SMARTSET 41458 02/27/202002/26, 12/23/2018, 12/08/2018, Additional history exists Yearly [...] Documents on File Type Date Recorded 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
--- OUTSIDE RECORDS SUMMARY | 2023-06-01 05:41 | External Medical Summary | Summary of Care ---
Author Name Unknown Organization [place] [address] Care Team Providers Care Bush Regenerator Name Role Phone Kevin Whiteside DO Primary Care Provider Reason for Referral * Evaluate & Treat - Unlimited Visits (Within 10 days (routine)) Status Reason Specialty Diagnoses / Procedures Referred By Contact Referred To Contact Authorized Specialty Services Required Physical Therapy Diagnoses Leg cramp Fibromyalgia Rema Gibbons PA-C [address] [place] [address] Reason for Visit * Reason Comments Acute Fibromyalgia worse, cramping in legs and arms Encounter Details Date Type Department Care Team Description 07/20/2019 Office Visit Family Practice [facility] [address] [place] [address] Rema Gibbons PA-C [address] [place] [address] [phone] Leg cramp*; Fibromyalgia Allergies Active Allergy Reactions Severity Noted Date Comments Pollen 05/18/2019 Heparin 09/04/2009 Heparin Induced Thrombocytopenia Empagliflozin Other (Please comment) Medium 05/17/2018 3 yeast infections in 6 weeks after starting Morphine And Related 09/16/1997 Hallucinations Tetanus Toxoid Other (Please comment) 06/15/2011 Passed out documented as of this encounter (statuses as of 07/20/2019) Medications Medication Sig Dispensed Refills Start Date [...] 5 01/01/2019 Active Blood Glucose Monitoring Suppl ([employer] ULTRA 2) w/Device KIT Use to test [...] Tab 0 05/23/2019 Active Vitamin D, Ergocalciferol, 03118 units CapsuleIndications:V itamin D deficiency Take one [...] as of this encounter (statuses as of 07/20/2019) Active Problems Problem Noted Date Benign hypertensive [...] as of this encounter (statuses as of 07/20/2019) Resolved Problems Problem Noted Date Resolved Date [...] as of this encounter (statuses as of 07/20/2019) Immunizations Name Administration Dates Next Due Pneumococcal [...] Reading Time Taken Comments Blood Pressure 124/76 07/20/2019 9:58 AM EDT Pulse 70 07/20/2019 9:58 AM EDT Temperature 36.3 C (97.3 F) 07/20/2019 9:58 AM ED T Respiratory Rate 16 07/20/2019 9:58 AM EDT Oxygen Saturation - - Inhaled Oxygen Concentration - - Weight 152.4 kg (336 lb) 07/20/2019 9:58 AM EDT Height 165.1 cm (5' 5") 07/20/2019 9:58 AM EDT Body Mass Index 55.91 07/20/2019 9:58 AM EDT documented in this encounter Progress Notes * Rema Gibbons PA-C - 07/20/2019 10:06 AM EDT Subjective Stephanie Camp is a 64 year old female. Chief Complaint Patient presents with Acute Fibromyalgia worse, cramping in legs and arms HPI: Polymyalgia, polyarthralgia. Has h/o FMS. Feels like fibromyalgia muscle pain and weakness, worse than usual for her. No fevers, chills. No loss of bowel or bladder control. No numbness or tingling. PMH: 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 Nocturnal hypoxemia G47.34 ELISSA (obstructive sleep apnea) G47.33 Venous insufficiency I87.2 HTN, goal below 130/80 I10 History of pulmonary embolus (PE) Z86.711 Statin intolerance Z78.[address] [address] Z95.828 Type 2 diabetes mellitus with hemoglobin A1c goal of 7.0%-8.0% ([facility]) E11.9 Fibromyalgia M79.7 Abnormality of gait R26.9 Restless legs syndrome G25.81 Gastroesophageal reflux disease with esophagitis K21.0 Uncontrolled type 2 diabetes mellitus with stage 3 chronic kidney disease, with long-term current use of insulin ([facility]) E11.22, E11.65, N18.3, Z79.4 Body mass index (BMI) of 50.0 to 59.9 in adult ([facility]) Z68.43 Controlled substance agreement signed Z79.899 Chronic diastolic congestive heart failure ([facility]) I50.32 Thoracic back pain M54.6 Mild episode of recurrent major depressive disorder ([facility]) F33.0 Lumbar radiculopathy M54.16 Other atherosclerosis of [place] arteries of extremities, left leg ([facility]) I70.292 Benign hypertensive heart and kidney disease with diastolic CHF, NYHA class 1 and CKD stage 3 ([facility]) I13.0, I50.30, N18.3 Current Outpatient Medications Medication Sig Dispense Refill clonazePAM (KLONOPIN) 0.5 MG Tablet TAKE ONE TABLET BY MOUTH TWICE DAILY 60 Tab 1 spironolactone (ALDACTONE) 25 MG Tablet Take 1 Tab by mouth daily. 90 Tab 3 Magnesium Oxide 400 (241.3 mg) Tablet Take 400 mg by mouth daily. 90 Tab 3 Vitamin D, Ergocalciferol, 44006 units Capsule Take one capsule by mouth once a week 13 Cap 0 traMADol (ULTRAM) 50 MG Tablet Take 1 Tab by mouth every 8 hours as needed for Pain, Severe. 90Tab 0 furosemide (LASIX) 40 MG Tablet Take 40 mg by mouth daily. 180 Tab 3 oxygen GAS 2 L/min(Oxygen). 2 LPM bled through CPAP 11 cwp during all periods of sleep. Glucose Blood ([employer] ULTRA BLUE) STRP Check sugars 3-4 times daily 400 Strip 2 Semaglutide (OZEMPIC) 0.25 or 0.5 MG/DOSE SOPN Inject 0.25 mg once weekly for 2 weeks and then 0.50 mg weekly (Patient taking differently: 0.5 mg once [...] History: Diagnosis Date ELSIE (acute kidney injury) ([facility]) 06/12/2018 Allergic rhinitis due to other allergen Backache Diverticulosis of colon 01/28/06 DM type 2, not at goal (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) 06/12/2018 History of pulmonary embolus (PE) 07/16/2014 HTN, goal below 140/90 Impetigo 09/27/2018 Obesity, BMI not known Perforation of intestine ([facility]) 1996 COLON -- 1996 Pneumonia in aspergillosis(484.6) 09/14/2009 Spontaneous pneumothorax 09/14/2009 Statin intolerance 07/16/2014 Type 2 diabetes mellitus with hemoglobin A1c goal of 7.0%-8.0% ([facility]) 10/14/2014 ICD-10 update of inactive term Vaginal karmen 07/13/2018 Past Surgical History: Procedure Laterality Date ARTHROPLASTY KNEE TOTAL Right 07/24/14 R COLONOSCOPY, DIAGNOSTIC (RECTUM) 02/18/2016 normal, repeat 10 yrs/[facility] [place] COLONOSCOPY, GI REFERRAL OP 01/28/06 diverticulosis--repeat 10 years INCISION OF [place], PLANNED 06/03/2011 TRACHEOSTOMY PLANNED performed by DANNY HOLDER at [facility] KNEE ARTHROSCOPY/DEBRIDEMENT 07/[address] PERMANENT GASTROSTOMY TUBE 09/06/09 GASTROSTOMY WITH CONSTUCTION GASTRIC TUBE performed [place] AMADOU NUNEZ [place] [facility] REMOVAL OF THYROID GLAND 06/15/2011 THYROIDECTOMY INCLUDING SUBSTERNAL THYROID CERVICAL APPROACH performed by DANNY HOLDER at [facility] REMOVE GALLBLADDER 09/06/09 CHOLECYSTECTOMY performed by AMADOU NUNEZ at [place] [facility] REPAIR RECURRENT INCISIONAL HERNIA 1998 REVISION OF COLOSTOMY, SIMPLE 1997 SUTURE, LARGE INTESTINE W/COLOSTOMY 1996 perforation R colon with colostomy VENA CAVA FILTER/LIGATION/CLIP 08/19/09 Frank filter placement through the right femoral 08/19/[address] Lerma at [facility] [place] Review of patient's allergies indicates: Allergen Reactions [...] level: Not on file Occupational History Occupation: [employer] Employer: [employer] Occupation: [employer] Employer: [id number] Social Needs Financial resource strain: Not on file Food insecurity: Worry: Not on file Inability: Not on file Transportation needs: Medical: Not on file Non-medical: Not on file Tobacco Use Smoking status: Former Smoker Packs/day: 1.00 Years: 15.00 Pack years: 15.00 Last attempt to quit: 08/26/1997 Years since quittin.9 Smokeless tobacco: Never Used Substance and Sexual Activity Alcohol use: Yes Comment: rare Drug use: No Sexual activity: Not on file Lifestyle Physical activity: Days per week: Not on file Minutes per session: Not on file Stress: Not on file Relationships Social connections: Talks on phone: Not on file Gets together: Not on file Attends jainism service: Not on file Active member of [...] Social History Narrative 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 Musculoskeletal: Positive for arthralgias and myalgias. Negative for joint swelling. Neurological: Positive for weakness and numbness. Objective BP 124/76 | Pulse 70 | Temp (Src) 97.3 (Tympanic) | Resp 16 | Ht 5' 5" (1.651m) | Wt 336 lbs (152.409kg) | BMI 55.91 kg/m | BSA 2.64 m | LMP 03/11/2003 Physical Exam Constitutional: She appears well-developed and well-nourished. No distress. HENT: Head: Normocephalic and atraumatic. Right Ear: External ear normal. Left Ear: External ear normal. Nose: Nose normal. Mouth/Throat: Oropharynx is clear and moist. No oropharyngeal exudate. Cardiovascular: Normal rate and regular rhythm. Exam reveals no gallop and no friction rub. No murmur heard. Pulmonary/Chest: Effort normal and breath sounds normal. She has no wheezes. She has no rales. Musculoskeletal: Normal range of motion. She exhibits tenderness. She exhibits no edema or deformity. Skin: She is not diaphoretic. Nursing note and vitals reviewed. ASSESSMENT/PLAN: Leg cramp (Primary) - CBC/DIFF; Future; Expected date: 07/20/2019 - COMPR METAB PANEL; Future; Expected date: 07/20/2019 - MAGNESIUM; Future; Expected date: 07/20/2019 - PHYSICAL THERAPY REFERRAL OP Fibromyalgia Unfortunately, not much else to offer patient. She is on multiple medications Due to kidney disease, hesitant to increase doses She declines psychology Does agree to try physical therapy Should follow up with PCP - PHYSICAL THERAPY REFERRAL OP Rema Gibbons PA-C documented in this encounter Nursing Notes * Linda Dexter LPN - 07/20/2019 9:51 AM EDT Pt here for arm and leg cramps and fibromyalgia worse in past month, body cramps, has body pains and can't sleep. Has some dizziness off and on and some nausea off and on. documented in this encounter Plan of Treatment Upcoming Encounters Date Type Specialty Care Team Description 07/23/2019 [facility] Teddy Mccrary RN [address] [place] [address] [phone] 07/25/2019 Office Visit Sleep Disorders [facility] [place] [address] [phone] 08/09/2019 Office Visit Family Kevin Richter, [address] [place] [address] [phone] 08/24/2019 Office Visit Nephrology Gia White MD [address] [place] [address] [phone] 08/27/2019 Pharmacy Pharmacy [facility] [address] [place] [address] 08/28/2019 [facility] [place] [address] [phone] 11/07/2019 Office Visit Family Kevin Richter DO [address] [place] [address] [phone] 02/26/2020 Office Visit Cardiology [facility] [place] [address] [phone] Pending Results Name Type Priority Associated Diagnoses Date /Time MAGNESIUM Lab Routine 07/20/2019 10: 42 AM EDT Scheduled Orders Name Type Priority Associated Diagnoses Orde r Schedule MAGNESIUM Lab Routine Leg cramp Expected: 07/20/2019 (Approximate), Expires: 07/19/2020 Scheduled Referrals Name Type Priority Associated Diagnoses Orde r Schedule PHYSICAL THERAPY REFERRAL OP Referral Within 10 days (routine) Leg cramp Fibromyalgia Ordered: 07/20/2019 Health Maintenance Due Date Last Done Comments PAP SMEAR-EVERY 3 YRS,AGES 21-65 05/11/2016 05/11/2013, 03/01/2008, 10/19/2006, Additional history exists CKD PHOS USE SMARTSET 42782 12/29/2018 04/0 01/2018, 08/26/2009, 08/25/2009, Additional history exists Influenza Vaccine (FLU shot) (#1) 2019 06/12/2018, 06/12/2018, 07/14/2017, Additional history exists DIABETES-HGBA1C EVERY 6 MONTHS 09/13/2019 03/14/2019, 09/27/2018, 05/01/2018, Additional history exists CKD GFR USE SMARTSET 74684 12/14/201906/15, 05/24/2019, 05/07/2019, Additional history exists DIABETES-FOOT EXAM 01/02/2020 01/01/2019, 0 12/29/2017, 10/21/2016, Additional history exists CKD HGB USE SMARTSET 13815 02/27/202002/26, 12/23/2018, 12/08/2018, Additional history exists Yearly [...] Procedure Name Priority Date/Time Associated Diagnosis Comments COMPR METAB PANEL Routine 07/20/2019 10: 42 AM EDT CBC/DIFF Routine 07/20/2019 10:42 AM EDT documented in this encounter Results * COMPR METAB PANEL (07/20/2019 10:42 AM EDT) BUN 43(H) 6 - 20 mg/dL [facility] CREATININE 1.7(H) Comment: GFR should be used to assess renal function.Plasm a/Serum creatinine may not be able to properly reflect renal function in some cases. 0.5 - 1.0 mg/dL [facility] E GLOM FILT RATE 30.9(L)Comment:If patient is , multiply estimated GFR by 1.159. >60 [facility] SODIUM 138 135 - 146 mmol/L [facility] POTASSIUM 5.0 3.5 - 5.1 mmol/L [facility] CHLORIDE 96(L) 98 - 107 mmol/L [facility] CO2 25 22 - 32 mmol/L [facility] ANION GAP 17(H) 7 - 15 mmol/L [facility] GLUCOSE 245(H) 70 - 120 mg/dL [facility] ALBUMIN 4.2 3.8 - 5.0 g/dL [facility] AST 22Comment:RESULT MAY BE FALSELY ELEVATED DUE TO HEMOLYSIS 10 - 35 U/L [facility] ALKALINE PHOSPHATASE 101 0 - 153 U/L [facility] BILIRUBIN, TOTAL 0.3 0 - 1.2 mg/dL [facility] CALCIUM 9.8 8.4 - 10.2 mg/dL [facility] PROTEIN 8.4(H) 6.0 - 8.3 g/dL [facility] ALT 18 10 - 35 U/L [facility] Specimen Performing Organization Address City/State/Zipcod e Phone Number [facility], [address] [place] [address] * CBC/DIFF (07/20/2019 10:42 AM EDT) WBC 11.50(H) 4.00 - 10.80 K/uL [facility] RBC 4.56 3.85 - 5.15 M/uL [facility] HGB 13.6 12.0 - 15.3 g/dL [facility] HCT 44.1 36.0 - 45.2 % [facility] MCV 96.7 81.5 - 97.5 fL [facility] MCH 29.8 27.0 - 34.0 pg [facility] MCHC 30.8(L) 32.0 - 36.0 g/dL [facility] RDW 15.1 11.5 - 15.5 % [facility] PLATELET COUNT 265 140 - 400 K/uL [facility] MPV 9.8 6.6 - 11.1 fL [facility] NEUTS 74.3 40 - 75 % [facility] LYMPHS 17.1(L) 18 - 42 % [facility] MONOS 5.3 1 - 11 % [facility] EOS 3.0 0 - 6 % [facility] BASOS 0.3 0 - 2 % [facility] ABS. NEUTS 8.53(H) 1.8 - 7.7 K/uL [facility] ABS. LYMPHS 1.97 1.0 - 4.8 K/uL [facility] ABS. MONOS 0.61 0.0 - 1.1 K/uL [facility] ABS. EOS 0.35 0.0 - 0.7 K/uL [facility] ABS. 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
--- OUTSIDE RECORDS SUMMARY | 2023-06-01 05:41 | External Medical Summary | Summary of Care ---
Author Name Unknown Organization [place] [address] Care Team Providers Care Maintenance Truck Driver Name Role Phone Migue Whiteside DO Primary Care Provider Reason for Visit * Reason Comments eRx-Medication Refill Encounter Details Date Type Department Care Team Description 07/13/2019 Refill Family Practice [facility] [address] [place] [address] Migue Whiteside DO [address] [place] [address] Anxiety state Allergies [...] 5 9 Active Blood Glucose Monitoring Suppl ([employer] ULTRA 2) w/Device KIT Use to test [...] Tab 0 9 Active Vitamin D, Ergocalciferol, 20889 units CapsuleIndications: Vitamin D deficiency Take one [...] TWICE DAILY 60 Tab 1 9 Active clonazePAM (KLONOPIN) 0.5 MG TabletIndications:A nxiety state TAKE ONE TABLET BY MOUTH TWICE DAILY 60 Tab 2 9 07/13/20 19 Discontinued documented as of this encounter (statuses as of 07/16/2019) Active Problems Problem Noted Date 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, NYHA class 1 and CKD stage 3 05/14/2019 Other atherosclerosis of [place] arteries of extremities, left leg 02/26/2019 Lumbar [...] 10/14/2014 Overview: ICD-10 update of inactive term Broussard filter in place 08/19/2014 History of pulmonary [...] Telephone Encounter - Migue Whiteside DO - 07/16/2019 7:23 AM EDT Signed Prescriptions: Disp Refills clonazePAM (KLONOPIN) 0.5 MG Tablet 60 Tab 1 Sig: TAKE ONE TABLET BY MOUTH TWICE DAILY Authorizing Provider: MIGUE WHITESIDE * Telephone Encounter - Argenis Bucio [facility] - 07/15/2019 11:11 AM EDT Pending Prescriptions: Disp Refills clonazePAM (KLONOPIN) 0.5 MG Tablet [Phar*60 Tab 1 Sig: TAKE ONE TABLET BY MOUTH TWICE DAILY * Telephone Encounter - Argenis Bucio [facility] - 07/15/2019 11:11 AM EDT I have reviewed the patients controlled substance dispensing history in the Prescription Drug Monitoring Program in compliance with the [facility] regulations before prescribing a controlled substance. PDMP checked on 07/15/2019. Patient requesting: Clonazepam 0.5mg, filled 05/25/19, for #60 for a 30 day supply. Other recent controlled medication fills: Tramadol 50mg, filled 05/10/19, for #10 for a 5 day supply. Last Office Visit: 05/15/2019 Next Office Visit: 11/07/2019 Scheduled Provider(s): Migue Whiteside, Date medication is due for refill: today Toxicology results: Results for orders placed or [...] Review. Please approve if appropriate. Thank You, Argenis Bucio [facility] Clinical [facility]ist [facility], 11:11 AM documented in this encounter Plan of Treatment Upcoming Encounters Date Type Specialty Care Team Description 07/16/2019 Pharmacy Pharmacy [facility] [address] [place] [address] 07/17/2019 Home Visit [facility] at Home Teddy Mccrary RN [address] [facility] [place] [address] 07/25/2019 Office Visit Sleep Disorders Celsa Tafoya CRNP [address] [place] [address] 08/24/2019 Office Visit Nephrology Gia White MD 21 [facility] [place] [address] 11/07/2019 Office Visit Family Medicine Migue Whiteside DO [address] [place] [address] 02/26/2020 Office Visit Cardiology Rey Woodall MD 132 [facility] [place] [address] Health Maintenance Due Date Last Done Comments PAP SMEAR-EVERY 3 YRS,AGES 21-65 05/11/2016 05/11/2013, 03/01/2008, 10/19/2006, Additional history exists CKD PHOS USE SMARTSET 25609 12/29/2018 0401/2018, 08/26/2009, 08/25/2009, Additional history exists Influenza Vaccine (FLU shot) (#1) 2019 06/12/2018, 06/12/2018, 07/14/2017, Additional history exists DIABETES-HGBA1C EVERY 6 MONTHS 09/13/2019 03/14/2019, 09/27/2018, 05/01/2018, Additional history exists CKD GFR USE SMARTSET 44604 12/14/201906/15, 05/24/2019, 05/07/2019, Additional history exists DIABETES-FOOT EXAM 01/02/2020 01/01/2019, 0 12/29/2017, 10/21/2016, Additional history exists CKD HGB USE SMARTSET 38189 02/27/202002/26, 12/23/2018, 12/08/2018, Additional history exists Yearly [...] Documents on File Type Date Recorded Patient Advertising Traffic Manager Expl anation Advanced Directive 08/22/2009 12:00 [...]
--- OUTSIDE RECORDS SUMMARY | 2023-06-01 05:41 | External Medical Summary | Summary of Care ---
Author Name Unknown Organization [place] [address] Care Team Providers Care Game Advisor Name Role Phone Kevin Whiteside Primary Care Provider Reason for Visit * Reason Comments Pharmacy Questions Encounter Details Date Type Department Care Team Description 06/18/2019 [facility] [address] [facility] [place] [address] [facility] [address] [facility] [place] [address] Pharmacy Questions Allergies Active Allergy Reactions Severity Noted Date Comments Pollen 05/18/2019 Heparin 09/04/2009 Heparin Induced Thrombocytopenia Empagliflozin Other (Please comment) Medium 05/17/2018 3 yeast infections in 6 weeks after starting Morphine And Related 09/16/1997 Hallucinations Tetanus Toxoid Other (Please comment) 06/15/2011 Passed out documented as of this encounter (statuses as of 06/18/2019) Medications Medication Sig Dispensed Refills Start Date [...] of 7.0%-8.0% ([facility]) Take 1 Cap by mouth 3 times a day. 270 Cap 5 01/01/2019 Active Blood Glucose Monitoring Suppl ([employer] ULTRA 2) w/Device KIT Use to test [...] (BMI) of 50.0 to 59.9 in adult ([facility]),Hypoxemia,ELISSA (obstructive sleep apnea),HTN, goal below 140/80 [...] Tab by mouth daily. 0 05/24/2019 Active Magnesium Oxide 400 (241.3 mg) Tablet Take 400 mg by mouth every other day. 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, NYHA class 1 and CKD stage 3 05/14/2019 Other atherosclerosis of [place] arteries of extremities, left leg 02/26/2019 Lumbar [...] 10/14/2014 Overview: ICD-10 update of inactive term [place] filter in place 08/19/2014 History of pulmonary [...] as of this encounter (statuses as of 06/18/2019) Resolved Problems Problem Noted Date Resolved Date [...] as of this encounter (statuses as of 06/18/2019) Immunizations Name Administration Dates Next Due Pneumococcal [...] Notes * Telephone Encounter - Rose Barton [facility] - 06/18/2019 1:49 PM EDT Patient Phone Numbers Spoke to patient via phone. Patient spoke with [employer] and will have supplies shipped over night.Recommend patient take Novolog 35 units with breakfast and dinner and 30 units with lunch until supplies come in and she can get back on the pump. Patient to call with any other questions/concerns. Rose Barton, Pharm D Clinical Pharmacist 06/18/2019, 1:51 PM * Telephone Encounter - Crista Norman [facility] - 06/18/2019 12:58 PM EDT Patient Phone Numbers Patient called stating she ran out of diabetic supplies and they won't arrive for another 3 days. She is asking for a sliding scale to give Novalog because she still has some of her regular pens left. She has tried using old scale, but sugars have been getting up into the 500's. documented in this encounter Plan of Treatment Upcoming Encounters Date Type Specialty Care Team Description 06/20/2019 Home Visit [facility] Saira Salmon, [facility] Corporate Development Intern [address] [place] [address] [phone] 06/29/2019 Pharmacy Pharmacy [facility] [place] [address] 07/03/2019 Home Visit [facility] Home Teddy Mccrary RN 132 [facility] [place] [address] [phone] 07/10/2019 Office Visit Sleep Disorders Celsa Tafoya CRNP [address] [facility] [place] [address] [phone] 08/24/2019 Office Visit Nephrology Gia White MD 21 [place] [address] [phone] 11/07/2019 Office Visit Family Medicine Kevin Whiteside DO [address] [facility] [place] [address] [phone] 02/26/2020 Office Visit Cardiology Rey Woodall MD [address] [facility] [place] [address] [phone] Health Maintenance Due Date Last Done Comments PAP SMEAR-EVERY 3 YRS,AGES 21-65 05/11/2016 05/11/2013, 03/01/2008, 10/19/2006, Additional history exists CKD PHOS USE SMARTSET 40382 12/29/2018 04/01/2018, 08/26/2009, 08/25/2009, Additional history exists Influenza Vaccine (FLU shot) (#1) 2019 06/12/2018, 06/12/2018, 07/14/2017, Additional history exists BREAST CANCER SCREENING DISCUSSION YEARLY AGES 40-75 06/23/2019 06/23/2018, 05/09/2015, 07/12/2014, Additional history exists DIABETES-HGBA1C EVERY 6 MONTHS 09/13/2019 03/14/2019, 09/27/2018, 05/01/2018, Additional history exists CKD GFR USE SMARTSET 47035 12/14/201906/15, 05/24/2019, 05/07/2019, Additional history exists DIABETES-FOOT EXAM 01/02/2020 01/01/2019, 0 12/29/2017, 10/21/2016, Additional history exists CKD HGB USE SMARTSET 62221 02/27/202002/26, 12/23/2018, 12/08/2018, Additional history exists Yearly [...] on File Type Date Recorded Patient Turning Machine Set Up Operator Expl anation Advanced Directive 08/22/2009 12:00 [...]
--- OUTSIDE RECORDS SUMMARY | 2023-06-01 05:42 | External Medical Summary ---
Author Name Unknown Address [facility] [place] [address] Phone Organization K01:[facility] [address] [place] [id number] Laboratory Report Ordering Provider Test Date Status TRACY LARRY 05/24/2019 14:43:00 Final Observation Date Value Abnormality Reference Status 25-OH Vitamin D total 05/24/2019 23:14 41 > 19 Final Performing Location [place] [address] [address] [facility] [address]
--- OUTSIDE RECORDS SUMMARY | 2023-06-01 05:42 | External Medical Summary | Summary of Care ---
Author Name Unknown Organization [place] [address] Care Team Providers Care Vat Washer Name Role Phone Kevin Whiteside Primary Care Provider Reason for Visit * Reason Comments eRx-Medication Refill Encounter Details Date Type Department Care Team Description 06/17/2019 Refill Nephrology 2nd Floor, [place] [address] [place] [address] Kendy White MD [address] [place] [address] Vitamin D deficiency Allergies Active Allergy Reactions [...] 5 9 Active Blood Glucose Monitoring Suppl ([employer] ULTRA 2) w/Device KIT Use to test [...] of 50.0 to 59.9 in adult ([facility]),Hypoxemia,ELISSA (obstructive sleep apnea),HTN, goal [...] Tab by mouth daily. 0 9 Active Magnesium Oxide 400 (241.3 mg) Tablet Take 400 mg by mouth every other day. 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, NYHA class 1 and CKD stage 3 05/14/2019 Other atherosclerosis of [place] arteries of extremities, left leg 02/26/2019 Lumbar [...] encounter Miscellaneous Notes * Telephone Encounter - Kendy White MD - 06/18/2019 10:52 AM EDT Signed Prescriptions: Disp Refills Vitamin D, Ergocalciferol, 49787 units Cap*13 Cap 0 Sig: Take one capsule by mouth once a week Authorizing Provider: KENDY WHITE * Telephone Encounter - Teri Cullen RN - 06/18/2019 8:32 AM EDT Pending Prescriptions: Disp Refills Vitamin D, Ergocalciferol, 70837 units Ca*13 Cap 0 Sig: Take one capsule by mouth once a week * Telephone Encounter - Teri Cullen RN - 06/18/2019 8:31 AM EDT Pending Prescriptions: Disp Refills Vitamin D, Ergocalciferol, 01735 units Ca*13 Cap 0 Sig: Take one capsule by mouth once a week Last Office Visit: 05/24/19 Next Office Visit: No Future Appointments If no future appointments scheduled, and last appointment is greater than a year ago, please schedule patient for a follow-up appointment Last date the medication was ordered: Pharmacy: [id number] Is this request for a controlled [...] Specialty Care Team Description 06/20/2019 [facility] Saira Salmon, [facility] Automotive Repair Technician [address] [place] [address] [phone] 06/29/2019 Pharmacy Pharmacy [facility] [address] [place] [address] 07/03/2019 [facility] Teddy Mccrary RN [address] [facility] [place] [address] [phone] 07/10/2019 Office Visit Sleep Disorders Celsa Tafoya CRNP [address] [place] [address] [phone] 08/24/2019 Office Visit Nephrology Kendy White MD [address] [facility] [place] [address] [phone] 11/07/2019 Office Visit Family Medicine Kevin Whiteside DO [address] [place] [address] [phone] 02/26/2020 Office Visit Cardiology Rey Woodall MD [address] [place] [address] [phone] Health Maintenance Due Date Last Done Comments PAP SMEAR-EVERY 3 YRS,AGES 21-65 05/11/2016 05/11/2013, 03/01/2008, 10/19/2006, Additional history exists CKD PHOS USE SMARTSET 36316 12/29/2018 04/0 01/2018, 08/26/2009, 08/25/2009, Additional history exists Influenza Vaccine (FLU shot) (#1) 2019 06/12/2018, 06/12/2018, 07/14/2017, Additional history exists BREAST CANCER SCREENING DISCUSSION YEARLY AGES 40-75 06/23/2019 06/23/2018, 05/09/2015, 07/12/2014, Additional history exists DIABETES-HGBA1C EVERY 6 MONTHS 09/13/2019 03/14/2019, 09/27/2018, 05/01/2018, Additional history exists CKD GFR USE SMARTSET 34419 12/14/201906/15, 05/24/2019, 05/07/2019, Additional history exists DIABETES-FOOT EXAM 01/02/2020 01/01/2019, 0 12/29/2017, 10/21/2016, Additional history exists CKD HGB USE SMARTSET 88146 02/27/202002/26, 12/23/2018, 12/08/2018, Additional history exists Yearly [...] as of this encounter Visit Diagnoses Diagnosis Vitamin D deficiency Unspecified vitamin D deficiency documented in this encounter Advance Directives Documents on File Type Date Recorded Patient In Flight Refueling Craftsman Expl anation Advanced Directive 08/22/2009 12:00 AM [...]
--- OUTSIDE RECORDS SUMMARY | 2023-06-01 05:42 | External Medical Summary ---
Author Name Unknown Address [facility] [address] [place] [id number] Phone Organization K01:[place] [address] [address] [place] [id number] Laboratory Report Ordering Provider Test Date Status ARI CALDERON 06/15/2019 13:59:00 Final Observation Date Value Abnormality Reference Status Magnesium 06/15/2019 21:03 1.6 1.5-2.6 Fin al Performing Location [address] [address]
--- OUTSIDE RECORDS SUMMARY | 2023-06-01 05:42 | External Medical Summary | Summary of Care ---
Author Name Unknown Organization [place] [address] Care Team Providers Care Bottle Washing Machine Operator Name Role Phone Kevin Whiteside Primary Care Provider Reason for Visit * Reason Comments Follow Up 3 month recheck Encounter Details Date Type Department Care Team Description 06/15/2019 Office Visit Cardiology, [facility] [address] [place] [address] Marjorie Powell PA-C [address] [place] [address] Chronic diastolic congestive heart failure (HCC)*; HTN, goal below 130/80; Statin intolerance; ELISSA (obstructive sleep apnea) Allergies Active Allergy Reactions Severity Noted Date Comments Pollen 05/18/2019 Heparin 09/04/2009 Heparin Induced Thrombocytopenia Empagliflozin Other (Please comment) Medium 05/17/2018 3 yeast infections in 6 weeks after starting Morphine And Related 09/16/1997 Hallucinations Tetanus Toxoid Other (Please comment) 06/15/2011 Passed out documented as of this encounter (statuses as of 06/15/2019) Medications Medication Sig Dispensed Refills Start Date [...] a day. 270 Cap 5 9 Active Vitamin D, Ergocalciferol, 07823 units CapsuleIndications: Vitamin D deficiency Take one capsule by mouth once a week 13 Cap 0 9 Active Blood Glucose Monitoring Suppl (ECO ULTRA 2) w/Device KIT Use to test [...] other day. 45 Tab 3 9 Active Magnesium Oxide 400 (241.3 mg) Tablet Take 400 mg by mouth every other day. 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, NYHA class 1 and CKD stage 3 05/14/2019 Other atherosclerosis of morongo arteries of extremities, left leg 02/26/2019 Lumbar [...] 10/14/2014 Overview: ICD-10 update of inactive term Walbridge filter in place 08/19/2014 History of pulmonary [...] as of this encounter (statuses as of 06/15/2019) Resolved Problems Problem Noted Date Resolved Date [...] as of this encounter (statuses as of 06/15/2019) Immunizations Name Administration Dates Next Due Pneumococcal [...] Sign Reading Time Taken Comments Blood Pressure 122/80 06/15/2019 1:17 PM EDT Pulse 80 06/15/2019 1:17 PM EDT Temperature - - Respiratory Rate 24 06/15/2019 1:17 PM EDT Oxygen Saturation - - Inhaled Oxygen Concentration - - Weight 148.8 kg (328 lb) 06/15/2019 1:17 PM EDT Height - - Body Mass Index 54.58 01/23/2019 3:50 PM EDT documented in this encounter Progress Notes * Marjorie Powell PA-C - 06/15/2019 1:25 PM EDT 06/15/2019 Cardiology F/U: SUBJECTIVE: Stephanie Camp is a 64 year old female here today for routine cardiology follow-up . Last clinic evaluation in February [address] Woodall. History includes: 1.Morbid obesity. [...] multiple factorial etiology 9. Chronic renal insufficiency Admitted this summer due to dehydration and ELSIE. Echo was completed with stable findings. She presents today feeling ok. Notes diffuse chronic pain which she attributes to her fibromyalgia.Notes left arm pain, reproducible with palpitation and movement. No exertional complaints. Trying to lose weight. Down 7 lbs since prior evaluation. Taking meds as prescribed. recent labs demonstrated hyperkalemia and not repeated. No chest pain, shortness of breath, palpitations, dizziness, syncope or near syncope. No orthopnea,PND, or increased lower extremity edema. No fever, chills, cough, hematochezia, melena, or hemoptysis. Review of Systems: See HPI for pertinent positives. All other 10 point review of systems is negative. 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 Nocturnal hypoxemia G47.34 ELISSA (obstructive sleep apnea) G47.33 Venous insufficiency I87.2 HTN, goal below 130/80 I10 History of pulmonary embolus (PE) Z86.711 Statin intolerance Z78.[address] Z95.828 Type 2 diabetes mellitus with hemoglobin A1c goal of 7.0%-8.0% ([facility]) E11.9 Fibromyalgia M79.7 Abnormality of gait R26.9 Restless legs syndrome G25.81 Gastroesophageal reflux disease with esophagitis K21.0 Uncontrolled type 2 diabetes mellitus with stage 3 chronic kidney disease, with long-term current use of insulin ([facility]) E11.22, E11.65, N18.3, Z79.4 Body mass index (BMI) of 50.0 to 59.9 in adult ([facility]) Z68.43 Controlled substance agreement signed Z79.899 Chronic diastolic congestive heart failure ([facility]) I50.32 Thoracic back pain M54.6 Mild episode of recurrent major depressive disorder ([facility]) F33.0 Lumbar radiculopathy M54.16 Other atherosclerosis of morongo arteries of extremities, left leg ([facility]) I70.292 Benign hypertensive heart and kidney disease with diastolic CHF, NYHA class 1 and CKD stage 3 ([facility]) I13.0, I50.30, N18.3 Review of patient's allergies indicates: Allergen Reactions Jardiance [Empagliflozin] Other (Please comment) 3 yeast infections in 6 weeks after starting Hay Fever [Pollen] Heparin Heparin Induced Thrombocytopenia Morphine And Related Hallucinations Tetanus Toxoid Other (Please comment) Passed out Current Outpatient Medications Medication Sig Dispense Refill Magnesium Oxide 400 (241.3 mg) Tablet Take 400 mg by mouth every other day. 45 Tab 3 spironolactone (ALDACTONE) 25 MG Tablet Take 1 Tab by mouth daily. traMADol (ULTRAM) 50 MG Tablet Take 1 Tab by mouth every 8 hours as needed for Pain, Severe. 90Tab 0 furosemide (LASIX) 40 MG Tablet Take 40 mg by mouth daily. 180 Tab 3 oxygen GAS 2 L/min(Oxygen). 2 LPM bled through CPAP 11 cwp during all periods of sleep. Glucose Blood (ehealthtrackerUCH ULTRA BLUE) STRP Check sugars 3-4 times [...] by mouth at bedtime. 30 Tab 5 clonazePAM (KLONOPIN) 0.5 MG Tablet TAKE ONE TABLET BY MOUTH TWICE DAILY 60 Tab 2 insulin aspart (NOVOLOG) 100 UNIT/ML injection Use [...] to test BG values 1 Kit 0 Vitamin D, Ergocalciferol, 37913 units Capsule Take one capsule by mouth once a week 13 Cap 0 gabapentin (NEURONTIN) 300 MG Capsule Take [...] 20 MG PO CPDR one tablet daily OBJECTIVE/PHYSICAL EXAMINATION: BP 122/80 | Pulse 80 | Resp 24 | Wt 328 lbs (148.780kg) | BMI 54.58 kg/m | BSA 2.61 m | LMP 03/11/2003 Wt Readings from Last 3 Encounters: 06/15/19 (!) 148.8 kg (328 lb) 06/06/19 (!) 151 kg (333 lb) 05/24/19 (!) 150.5 kg (331 lb 14.4 oz) BP Readings from Last 4 Encounters: 06/15/19 122/80 06/06/19 128/78 05/24/19 108/64 05/23/19 114/60 General: no acute distress and stated age [...] no joint inflammation, no deforming arthritis Extremities: Trace edema, no cyanosis, pulses intact 2+/4 Neuro: grossly normal exam Data: 2D echocardiogram report reviewed dated May 09, 2019 at [place]: The left ventricle is. Ejection fraction 60-65%. Grade 1 diastolic dysfunction. RV systolic function is normal. Right atrial size is normal. Left atrial is normal. No significant valvular pathology. No evidence of pulmonary hypertension. Lipid Panel Results: LIPID PANEL WITH DIRECT LDL IF TG ABOVE 150 MG/DL Nessa Dt/Tm Resulted Value Status HOURS FASTING (hours) 03/14/19 1:54P 03/14/19 >8 HOURS F TRIGLYCERIDES (mg/dL) 03/14/19 1:54P 03/14/19 232* F CHOLESTEROL (mg/dL) 03/14/19 1:54P 03/14/19 183 F HDL (mg/dL) 03/14/19 1:54P 03/14/19 36* F CHOL/HDL RATIO ( ) 03/14/19 1:54P 03/14/19 5.1 F LDL (CALCULATED) (mg/dL) 03/14/19 1:54P 03/14/19 F Value: UNINTERPRETABLE RESULT LDL DIRECT(REFLEX) (mg/dL) 03/14/19 1:54P 03/14/19 126 F ASSESSMENT: 63 year old female ICD-10-CM 1. Chronic diastolic congestive heart failure (HCC) I50.32 2. HTN, goal below 130/80 I10 3. Statin intolerance Z78.9 4. ELISSA (obstructive sleep apnea) G47.33 PLAN: Stable cardiac symptoms. BP controlled. Appears euvolemic. Recent echo from [place] reviewed. Stable findings. SHe is to continue current medications as listed above. No changes were made at today's visit. Continued weight loss encouraged. Would like to recheck BMP today given hyperkalemia noted on last labs. She is agreeable. Recommend regular aerobic exercise. [place] goal would be minimum of 30 minutes done daily. Exercise can be done in divided time periods if needed. Told to avoid extremes in temperature. The patient agrees to the above plan and will call with additional questions or concerns. ER with all emergencies advised. Follow-up: Return in about 6 months (around 12/14/2019). Marjorie Powell PA-C Department of Cardiology This chart was completed in part utilizing [employer] Speech Voice Recognition Software. Grammatical errors, [...] documented in this encounter Nursing Notes * Vikram Morris LPN - 06/15/2019 1:17 PM EDT Chief Complaint Patient presents with Follow Up 3 month recheck documented in this encounter Plan of Treatment Upcoming Encounters Date Type Specialty Care Team Description 06/20/2019 [facility] Visit [facility] S[facility], [facility] Guest Services Agent [address] [address] [phone] 06/29/2019 Pharmacy Pharmacy [facility] [address] [address] 07/03/2019 Home Visit [facility] Teddy Mccrary, RN [address] [address] [phone] 07/10/2019 Office Visit Sleep Disorders Celsa Tafoya CRNP [address] [facility] [place] [address] [phone] 08/24/2019 Office Visit Nephrology Gia White MD [address] [facility] [place] [address] 11/07/2019 Office Visit Family Medicine Kevin Whiteside DO [address] [facility] [address] [place] [address] 02/26/2020 Office Visit Cardiology Rey Woodall MD [address] [facility] [address] [place] [address] Pending Results Name Type Priority Associated Diagnoses Date /Time MAGNESIUM Lab Routine Chronic diastolic congestive heart failure (HCC) 06/15/2019 1:59 PM EDT Scheduled Orders Name Type Priority Associated Diagnoses Orde r Schedule MAGNESIUM Lab Routine Chronic diastolic congestive heart failure (HCC) Expected: 06/15/2019, Expires: 07/15/2019 Health Maintenance Due Date Last Done Comments PAP SMEAR-EVERY 3 YRS,AGES 21-65 05/11/2016 05/11/2013, 03/01/2008, 10/19/2006, Additional history exists CKD PHOS USE SMARTSET 43952 12/29/2018 04/01/2018, 08/26/2009, 08/25/2009, Additional history exists Influenza Vaccine (FLU shot) (#1) 2019 06/12/2018, 06/12/2018, 07/14/2017, Additional history exists BREAST CANCER SCREENING DISCUSSION YEARLY AGES 40-75 06/23/2019 06/23/2018, 05/09/2015, 07/12/2014, Additional history exists DIABETES-HGBA1C EVERY 6 MONTHS 09/13/2019 03/14/2019, 09/27/2018, 05/01/2018, Additional history exists CKD GFR USE SMARTSET 89659 11/24/201905/24, 05/07/2019, 03/14/2019, Additional history exists DIABETES-FOOT EXAM 01/02/2020 01/01/2019, 0 12/29/2017, 10/21/2016, Additional history exists CKD HGB USE SMARTSET 17620 02/27/202002/26, 12/23/2018, 12/08/2018, Additional history exists Yearly [...] Diagnosis Comments BASIC METAB PANEL, BMP Routine 06/15/2019 1:59 PM EDT Chronic diastolic congestive heart failure (HCC) documented in this encounter Results * BASIC METAB PANEL, BMP (06/15/2019 1:59 PM EDT) BUN 27(H) 6 - 20 mg/dL [facility] CREATININE 1.5(H) Comment: GFR should be used to assess renal function.Plasm a/Serum creatinine may not be able to properly reflect renal function in some cases. 0.5 - 1.0 mg/dL [facility] E GLOM FILT RATE 37.0(L)Comment:If patient is , multiply estimated GFR by 1.159. >60 [facility] SODIUM 136 135 - 146 mmol/L [facility] POTASSIUM 4.3 3.5 - 5.1 mmol/L [facility] CHLORIDE 94(L) 98 - 107 mmol/L [facility] CO2 24 22 - 32 mmol/L [facility] ANION GAP 18(H) 7 - 15 mmol/L [facility] GLUCOSE 270(H) 70 - 120 mg/dL [facility] CALCIUM 10.1 8.4 - 10.2 mg/dL [facility] Specimen Performing Organization Address City/State/Zipcod e Phone Number [facility], [address] [place] [address] documented in this encounter Visit Diagnoses Diagnosis Chronic diastolic congestive heart failure (HCC)- Primary Chronic diastolic heart failure HTN, goal below 130/80 Unspecified essential hypertension Statin intolerance Other drug allergy ELISSA (obstructive sleep apnea) Obstructive sleep apnea (adult) (pediatric) documented in this encounter Advance Directives Documents on File Type Date Recorded Patient Mender Hand Expl anation Advanced Directive 08/22/2009 12:00 [...]
--- OUTSIDE RECORDS SUMMARY | 2023-06-01 05:42 | External Medical Summary ---
Author Name Unknown Address [facility] [place] [address] Phone Organization K01:[place] [address] [place] [id number] Laboratory Report Ordering Provider Test Date Status LONG CAMARENA 05/24/2019 14:59:00 Final Observation Date Value Abnormality Reference Status Albumin, Urine 05/24/2019 22:51 <1.20 Final Creat Ur-sCnc 05/24/2019 22:51 76 Final Microalbumin / Creatinine Ratio 05/24/2019 22:51 <16 <30 Final Performing Location [facility] [address] [facility] [address]
--- OUTSIDE RECORDS SUMMARY | 2023-06-01 05:42 | External Medical Summary | Summary of Care ---
Author Name Unknown Organization [place] [address] Care Team Providers Care Attorney Name Role Phone Migue Whiteside Primary Care Provider Reason for Visit * Reason Comments [facility]: Maintenance Encounter Details Date Type Department Care Team Description 05/23/2019 Telephone [facility] [address] [facility] [place] [address] Brooke Jose, RN [address] [place] [address] [phone] [facility]: Maintenance Allergies Active Allergy Reactions Severity Noted Date Comments Pollen 05/18/2019 Heparin 09/04/2009 Heparin Induced Thrombocytopenia Empagliflozin Other (Please comment) Medium 05/17/2018 3 yeast infections in 6 weeks after starting Morphine And Related 09/16/1997 Hallucinations Tetanus Toxoid Other (Please comment) 06/15/2011 Passed out documented as of this encounter (statuses as of 05/23/2019) Medications Medication Sig Dispensed Refills Start Date [...] a day. 270 Cap 5 9 Active spironolactone (ALDACTONE) 25 MG Tablet Take 0.5 Tabs by mouth daily. 45 Tab 5 9 Active Vitamin D, Ergocalciferol, 14523 units CapsuleIndications: Vitamin D deficiency Take one capsule by mouth once a week 13 Cap 0 9 Active Blood Glucose Monitoring Suppl (Vital MetrixTOMainOne ULTRA 2) w/Device KIT Use to test [...] times daily 400 Strip 2 9 Active Magnesium Oxide 400 (241.3 mg) Tablet Take 400 mg by mouth every other day. 0 9 Active furosemide (LASIX) 40 MG TabletIndications:C [...] Pain, Severe. 90 Tab 0 9 Active traMADol (ULTRAM) 50 MG Tablet 0 9 05/23/20 19 Discontinued documented as of this encounter (statuses as of 05/23/2019) Active Problems Problem Noted Date 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, NYHA class 1 and CKD stage 3 05/14/2019 Other atherosclerosis of [place] arteries of extremities, left leg 02/26/2019 Lumbar [...] as of this encounter (statuses as of 05/23/2019) Resolved Problems Problem Noted Date Resolved Date [...] as of this encounter (statuses as of 05/23/2019) Immunizations Name Administration Dates Next Due Pneumococcal [...] encounter Miscellaneous Notes * Addendum Note - Migue Whiteside DO - 05/23/2019 4:40 PM EDT Addended by: MIGUE WIHTESIDE on: 05/23/2019 04:40 PM Modules accepted: Orders * Telephone Encounter - Brooke Jose RN - 05/23/2019 2:18 PM EDT Saw patient today and she is requesting a refill of her Tramadol. Thank you documented in this encounter Plan of Treatment Upcoming Encounters Date Type Specialty Care Team Description 05/24/2019 Office Visit Nephrology Gia White MD [address] [address] 06/04/2019 [facility] Community Music Therapist [address] [address] 06/12/2019 Home Visit [facility] Teddy Mccrary, RN [address] [place] [address] [phone] 06/15/2019 Office Visit Cardiology Marjorie Powell PA-C [address] [address] [phone] 06/29/2019 Pharmacy Pharmacy [facility] [address] [place] [address] 07/10/2019 Office Visit Sleep Disorders Celsa Tafoya CRNP [address] [address] [phone] 11/07/2019 Office Visit Family Medicine Migue Whiteside DO [address] [place] [address] [phone] Health Maintenance Due Date Last Done Comments PAP SMEAR-EVERY 3 YRS,AGES 21-65 05/11/2016 05/11/2013, 03/01/2008, 10/19/2006, Additional history exists CKD PHOS USE SMARTSET 33892 12/29/2018 04/01/2018, 08/26/2009, 08/25/2009, Additional history exists Influenza Vaccine (FLU shot) (#1) 2019 06/12/2018, 06/12/2018, 07/14/2017, Additional history exists BREAST CANCER SCREENING DISCUSSION YEARLY AGES 40-75 06/23/2019 06/23/2018, 05/09/2015, 07/12/2014, Additional history exists DIABETES-HGBA1C EVERY 6 MONTHS 09/13/2019 03/14/2019, 09/27/2018, 05/01/2018, Additional history exists CKD GFR USE SMARTSET 46338 11/07/201905/07, 03/14/2019, 02/26/2019, Additional history exists DIABETES-FOOT EXAM 01/02/2020 01/01/2019, 0 12/29/2017, 10/21/2016, Additional history exists CKD HGB USE SMARTSET 84138 02/27/202002/26, 12/23/2018, 12/08/2018, Additional history exists DIABETES-URINE MICROALBUMIN EVERY 12 MONTHS 02/27/2020 02/26/2019, 12/23/2018, 12/08/2018, Additional history exists Yearly B-12 03/14/2020 03/14/2019, 05/16/2018 DIABETES-EYE EXAM 04/05/2020 04/05/2019, (Done elsewhere), 12/18/2009, Additional history exists PNEUMOCOCCAL 19-64 MEDIUM RISK Completed 08/22/2009, 06/15/2006 *DEPRESSION SCREENING,ANNUAL FOR PTS 12 AND OVER Addressed 06/12/2018 Overridden with the intention of not completing the topic MENINGOCOCCAL (MENACTRA) Aged Out No longer eligible based on patient's age to complete this topic documented as of this encounter Implants Not on filedocumented as of this encounter Visit Diagnoses Diagnosis Chronic pain syndrome- Primary documented in this encounter Advance Directives Documents on File Type Date Recorded Patient Academic Program Specialist Expl anation Advanced Directive 08/22/2009 12:00 [...]
--- OUTSIDE RECORDS SUMMARY | 2023-06-01 05:42 | External Medical Summary | Summary of Care ---
Author [place] [address] Care Team Providers Care Shuttle Van Driver Name Role Phone Kevin Whiteside DO Primary Care Provider Reason for Visit * Reason Comments Follow Up * Evaluate & Treat - Unlimited Visits (Within 3 days (urgent)) Status Reason Specialty Diagnoses / Procedures Referred By Contact Referred To Contact Authorized Specialty Services Required Nephrology Diagnoses Uncontrolled type 2 diabetes mellitus with stage 3 chronic kidney disease, with long-term current use of insulin ([facility]) Body mass index (BMI) of 50.0 to 59.9 in adult ([facility]) Chronic kidney disease (CKD) stage G3b/A3, moderately decreased glomerular filtration rate (GFR) between 30-44 mL/min/1.73 square meter and albuminuria creatinine ratio greater than 300 mg/g ([facility]) Kevin Whiteside DO [address] [place] [address] Encounter Details Date Type Department Care Team Description 05/24/2019 Office Visit Nephrology, [address] [address] Gia White MD [address] [place] [address] 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, NYHA class 1 and CKD stage 3 ([facility])*; HTN, goal below 130/80; Hyperparathyroidism, secondary renal ([facility]) Allergies Active Allergy Reactions Severity Noted Date Comments Pollen 05/18/2019 Heparin 09/04/2009 Heparin Induced Thrombocytopenia Empagliflozin Other (Please comment) Medium 05/17/2018 3 yeast infections in 6 weeks after starting Morphine And Related 09/16/1997 Hallucinations Tetanus Toxoid Other (Please comment) 06/15/2011 Passed out documented as of this encounter (statuses as of 05/24/2019) Medications Medication Sig Dispensed Refills Start Date [...] Cap 5 9 Active Vitamin D, Ergocalciferol, 36631 units CapsuleIndications: Vitamin D deficiency Take one capsule by mouth once a week 13 Cap 0 9 Active Blood Glucose Monitoring Suppl ([employer] ULTRA 2) w/Device KIT Use to [...] Tab by mouth daily. 0 9 Active spironolactone (ALDACTONE) 25 MG Tablet Take 0.5 Tabs by mouth daily. 45 Tab 5 9 05/24/20 19 Discontinued documented as of this encounter (statuses as of 05/24/2019) Active Problems Problem Noted Date 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, NYHA class 1 and CKD stage 3 05/14/2019 Other atherosclerosis of [place] arteries of extremities, left leg 02/26/2019 Lumbar [...] as of this encounter (statuses as of 05/24/2019) Resolved Problems Problem Noted Date Resolved Date [...] as of this encounter (statuses as of 05/24/2019) Immunizations Name Administration Dates Next Due Pneumococcal [...] Reading Time Taken Comments Blood Pressure 108/64 05/24/2019 2:15 PM EDT Pulse 80 05/24/2019 2:15 PM EDT Temperature 36.6 C (97.9 F) 05/24/2019 2:15 PM ED T Respiratory Rate 24 05/24/2019 2:15 PM EDT Oxygen Saturation - - Inhaled Oxygen Concentration - - Weight 150.5 kg (331 lb 14.4 oz) 05/24/2019 2:15 PM EDT Height - - Body Mass Index 55.23 01/23/2019 3:50 PM EDT documented in this encounter Progress Notes * Gia White MD - 05/24/2019 2:11 PM EDT REASON FOR VISIT: CKD 3 HPI: Stephanie Camp is a 64 year old female seen in follow-up in the [facility] Nephrology office. Shehas history of type 2 diabetes for over 20 years recent A1c of 10 on 05/01/2018, no retinopathy buthas neuropathy, ELISSA on CPAP, DVT status post IVC filter, fibromyalgia hypertension and obesity. Hercreatinine is fluctuated between 1.1 and 1.7 since 2016. Ultrasound done on 06/06/2018 showed the right kidney of 10.2 cm and left kidney of 10.9 cm. There was mild He cortical atrophy and mild right-sided hydronephrosis. She was hospitalized at the [facility] for shortness of breath found have acute kidney injury with a creatinine of 1.1 to 1.3 in the fall 2017. She was treated for CHF with the diuretics and the Lasix has been escalated to 80 mg recently. Recent echocardiogram April 2019 showed EF of 60% and grade 1 diastolic dysfunction. Last office visit was in June 2018. In the interim she was hospitalized at [facility] on 05/09/2019 with the weakness and CHF exacerbation. Creatinine peaked at 2.3. She is now taking Lasix 40 mg daily and Aldactone 25 mg daily. She is on chronic oxygen with exercise. No leg swelling. She has lost about 6 lb since hospital discharge. She is cutting down on salt. Past Medical History: Diagnosis Date ESLIE (acute kidney injury) (HCC) 06/12/2018 Allergic rhinitis due to other allergen Backache Diverticulosis of colon 01/28/06 DM type 2, not at goal (HCC) ELLIE (generalized anxiety disorder) 09/13/2009 Goiter [place] filter in place 08/19/2014 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HCC) 08/22/2009 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HCC) 06/12/2018 History of pulmonary embolus (PE) 07/16/2014 HTN, goal below 140/90 Impetigo 09/27/2018 Obesity, BMI not known Perforation of intestine ([facility]) 1996 COLON -- 1996 Pneumonia in aspergillosis(484.6) 09/14/2009 Spontaneous pneumothorax 09/14/2009 Statin intolerance 07/16/2014 Type 2 diabetes mellitus with hemoglobin A1c goal of 7.0%-8.0% ([facility]) 10/14/2014 ICD-10 update of inactive term Vaginal karmen 07/13/2018 Review of Systems: General ROS: negative for - chills or fever Psychological ROS: negative for - mood swings ENT ROS: negative for - nasal congestion or nasal discharge Endocrine ROS: DM Cardiovascular ROS: no chest pain Gastrointestinal ROS: [...] level: Not on file Occupational History 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 traMADol (ULTRAM) 50 MG Tablet Take 1 Tab by mouth every 8 hours as needed for Pain, Severe. 90Tab 0 furosemide (LASIX) 40 MG Tablet Take 40 mg by mouth daily. 180 Tab 3 oxygen GAS 2 L/min(Oxygen). 2 LPM bled through CPAP 11 cwp during all periods of sleep. Magnesium Oxide 400 (241.3 mg) Tablet Take 400 mg by mouth every other day. Glucose Blood ([employer] ULTRA BLUE) STRP Check sugars 3-4 times [...] 30 Tab 5 Blood Glucose Monitoring Suppl ([employer] ULTRA 2) w/Device KIT Use to test BG values 1 Kit 0 Vitamin D, Ergocalciferol, 63446 units Capsule Take one capsule by mouth [...] PO CPDR one tablet daily Filed Vitals: 05/24/19 1415 BP: 108/64 Pulse: 80 Resp: 24 Temp: 36.6 C (97.9 F) TempSrc: Tympanic Weight: (!) 150.5 kg (331 lb 14.4 oz) PHYSICAL EXAM: GENERAL: Obese, Alert, in no acute distress. EYES: PERRL, [...] LABS/STUDIES: BUN(mg/dL) Nessa Dt/Tm Resulted Value Status 05/07/19 2:14P 05/07/19 34* FINAL 03/14/19 1:54P 03/14/19 34* FINAL 01/12/19 4:01P 01/12/19 54* FINAL 12/18/18 1:36P 12/18/18 35* FINAL 11/06/18 12:41P 11/06/18 43* FINAL CREATININE(mg/dL) Nessa Dt/Tm Resulted Value Status 05/07/19 2:14P 05/07/19 2.1* FINAL 03/14/19 1:54P 03/14/19 1.6* FINAL CREATININE-OUTSIDE LAB(MG/DL) Nessa Dt/Tm Resulted Value Status 02/26/19 02/27/19 2.06* FINAL CREATININE(mg/dL) Nessa Dt/Tm Resulted Value Status 01/12/19 4:01P 01/12/19 1.6* FINAL CREATININE-OUTSIDE LAB(MG/DL) Nessa Dt/Tm Resulted Value Status 12/23/18 12/25/18 2.3* FINAL E GLOM FILT RATE( ) Nessa Dt/Tm Resulted Value Status 05/07/19 2:14P 05/07/19 24.0* FINAL 03/14/19 1:54P 03/14/19 35.3* FINAL 01/12/19 4:01P 01/12/19 34.2* FINAL 12/18/18 1:36P 12/18/18 38.2* FINAL 11/06/18 12:41P 11/06/18 38.2* FINAL POTASSIUM(mmol/L) Nessa Dt/Tm Resulted Value Status 05/07/19 2:14P 05/07/19 4.5 FINAL 03/14/19 1:54P 03/14/19 5.4* FINAL POTASSIUM-OUTSIDE LAB(MMOL/L) Nessa Dt/Tm Resulted Value Status 02/26/19 02/27/19 4.4 FINAL HGB(g/dL) Nessa Dt/Tm Resulted Value Status 06/05/18 11:49A 06/05/18 12.9 FINAL 09/23/16 11:23A 09/23/16 14.0 FINAL 07/07/16 11:37A 07/07/16 13.2 FINAL 07/05/16 6:07P 07/05/16 13.5 FINAL 08/13/11 11:50A 08/13/11 13.5 FINAL MICROALBUMIN RATIO(mg/g creat) Nessa Dt/Tm Resulted Value Low High Status 05/01/18 9:13A 05/01/18 <18 FINAL 03/03/17 12:37P 03/03/17 <15 FINAL 06/24/16 3:28P 06/24/16 <12 FINAL No PROTCREATRAT components found PTH, INTACT(pg/mL) Nessa Dt/Tm Resulted Value Status 08/01/18 8:24A 08/01/18 70* FINAL PHOSPHORUS(mg/dL) Nessa Dt/Tm Resulted Value Status 12/29/17 12:43P 12/29/17 3.3 FINAL ASSESSMENT AND PLAN Stephanie was seen today for follow up. 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 Recent creatinine of 2.1. Unclear baseline due to recent fluctuation in kidney function in setting of diuresis. She is no longer taking NSAIDs. She can use Tylenol for pain control. She knows to limit salt and keep well hydrated but not more than 2 L of water daily. She is repeating a BMP today. I will also check PTH and vitamin-D. HTN, goal below 140/90 Her blood pressure is controlled with the current regimen which includes metoprolol, lisinopril andLasix. Volume overload She appears euvolemic now. Continue current dose of Lasix 40 mg daily and Aldactone 25 mg daily. She will continue to monitor her weight. She knows to notify us if she gains over 5 lb in 2 days Hyperparathyroidism, secondary renal (HCC) PTH is above target. She will continue vitamin-D supplements. Return in 3 months Gia White MD documented in this encounter Nursing Notes * Violet Meier LPN - 05/24/2019 2:11 PM EDT Chief Complaint Patient presents with Follow Up Discharged from [facility] 05/10/19 documented in this encounter Plan of Treatment Upcoming Encounters Date Type Specialty Care Team Description 06/04/2019 [facility] Cigarette Catcher [address] [address] [phone] 06/12/2019 Home Visit [facility] Teddy Mccrary RN [address] [address] [phone] 06/15/2019 Office Visit Cardiology Marjorie Powell PA-C [address] [address] [phone] 06/29/2019 Pharmacy Pharmacy [facility] [address] [address] 07/10/2019 Office Visit Sleep Disorders Celsa Tafoya CRNP [address] [address] [phone] 08/24/2019 Office Visit Nephrology Gia White MD [address] [address] [phone] 11/07/2019 Office Visit Family Medicine Kevin Whiteside DO [address] [address] [phone] Pending Results Name Type Priority Associated Diagnoses Date /Time 25-HYDROXY VITAMIN D Lab Routine 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, NYHA class 1 and CKD stage 3 (HCC) 05/24/2019 2:43 PM EDT PTH, INTACT Lab Routine 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, NYHA class 1 and CKD stage 3 (HCC) 05/24/2019 2:43 PM EDT COMPR METAB PANEL Lab Routine HTN, goal below 130/80 05/24/2019 2:43 PM EDT ALBUMIN / CREATININE RATIO, URINE Lab Routine HTN, goal below 130/80 05/24/2019 2:59 PM EDT Scheduled Orders Name Type Priority Associated Diagnoses Orde r Schedule 25-HYDROXY VITAMIN D Lab Routine 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, NYHA class 1 and CKD stage 3 (HCC) Expected: 05/24/2019 (Approximate), Expires: 08/24/2019 PTH, INTACT Lab Routine 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, NYHA class 1 and CKD stage 3 (HCC) Expected: 05/24/2019 (Approximate), Expires: 08/24/2019 Health Maintenance Due Date Last Done Comments PAP SMEAR-EVERY 3 YRS,AGES 21-65 05/11/2016 05/11/2013, 03/01/2008, 10/19/2006, Additional history exists CKD PHOS USE SMARTSET 93230 12/29/2018 04/0 01/2018, 08/26/2009, 08/25/2009, Additional history exists Influenza Vaccine (FLU shot) (#1) 2019 06/12/2018, 06/12/2018, 07/14/2017, Additional history exists BREAST CANCER SCREENING DISCUSSION YEARLY AGES 40-75 06/23/2019 06/23/2018, 05/09/2015, 07/12/2014, Additional history exists DIABETES-HGBA1C EVERY 6 MONTHS 09/13/2019 03/14/2019, 09/27/2018, 05/01/2018, Additional history exists CKD GFR USE SMARTSET 14643 11/07/201905/07, 03/14/2019, 02/26/2019, Additional history exists DIABETES-FOOT EXAM 01/02/2020 01/01/2019, 0 12/29/2017, 10/21/2016, Additional history exists CKD HGB USE SMARTSET 63955 02/27/202002/26, 12/23/2018, 12/08/2018, Additional history exists DIABETES-URINE [...] 1 and CKD stage 3 (HCC)- Primary HTN, goal below 130/80 Unspecified essential hypertension Hyperparathyroidism, secondary renal (HCC) Secondary hyperparathyroidism (of renal origin) documented in this encounter Advance Directives Documents on File Type Date Recorded Patient Environmental Compliance Inspector Expl anation Advanced Directive 08/22/2009 12:00 [...]
--- OUTSIDE RECORDS SUMMARY | 2023-06-01 05:42 | External Medical Summary | Summary of Care ---
Author Name Unknown [place] [address] Care Team Providers Care Commercial Illustrator Name Role Phone Kevin Whiteside Primary Care Provider Reason for Visit * Reason Comments Medication Question Encounter Details Date Type Department Care Team Description 05/29/2019 Telephone Pharmacy, [place] [address] [id number] [facility] [address] [address] Medication Question Allergies Active Allergy Reactions Severity Noted Date Comments Pollen 05/18/2019 Heparin 09/04/2009 Heparin Induced Thrombocytopenia Empagliflozin Other (Please comment) Medium 05/17/2018 3 yeast infections in 6 weeks after starting Morphine And Related 09/16/1997 Hallucinations Tetanus Toxoid Other (Please comment) 06/15/2011 Passed out documented as of this encounter (statuses as of 05/29/2019) Medications Medication Sig Dispensed Refills Start Date [...] a day. 270 Cap 5 01/01/2019 Active Vitamin D, Ergocalciferol, 39278 units CapsuleIndications:V itamin D deficiency Take one capsule by mouth once a week 13 Cap 0 01/13/2019 Active Blood Glucose Monitoring Suppl ([employer] Networks[employer]CH ULTRA 2) w/Device KIT Use to [...] times daily 400 Strip 2 04/21/2019 Active Magnesium Oxide 400 (241.3 mg) Tablet Take 400 mg by mouth every other day. 0 04/12/2019 Active furosemide (LASIX) 40 MG TabletIndications:Ch ronic [...] Tab by mouth daily. 0 05/24/2019 Active documented as of this encounter (statuses as of 05/29/2019) Active Problems Problem Noted Date 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, NYHA class 1 and CKD stage 3 05/14/2019 Other atherosclerosis of [place] arteries of extremities, left leg 02/26/2019 Lumbar [...] 10/14/2014 Overview: ICD-10 update of inactive term [place] filter in place 08/19/2014 History of pulmonary [...] as of this encounter (statuses as of 05/29/2019) Resolved Problems Problem Noted Date Resolved Date [...] as of this encounter (statuses as of 05/29/2019) Immunizations Name Administration Dates Next Due Pneumococcal [...] Telephone Encounter - Vickie Madsen OSA - 05/29/2019 12:16 PM EDT Outbound call to patient, patient needs rescheduled for ROSA #4 with Saira SALDANA is off all next week. lmom for patient to return call, please offer appointment with Woody Mccrary on 06/06/19 at 2:30pm, then appointment with LES Chávez on 06/12/[address] [facility] at [phone]. * Telephone Encounter - Rose Barton RPh - 05/29/2019 9:33 AM EDT Patient used extra infusion sets due to infilatrations/errors. Requested she contact [employer] her supplier for extras and if they need anything from us they will fax us order forms. Rose Barton, Pharm D Clinical Pharmacist 05/29/2019, 9:34 AM * Telephone Encounter - Stephanie Solitario TECH - 05/29/2019 9:16 AM EDT Pt would like return call to discuss pump issues [phone]. She is having problems getting supplies. She has 1 infusion set left. Insurance is telling her 06/13 is the next time she can get. documented in this encounter Plan of Treatment Upcoming Encounters Date Type Specialty Care Team Description 06/12/2019 Home Visit [facility] Teddy Mccrary, RN [address] [address] [phone] 06/15/2019 Office Visit Cardiology Marjorie Powell PA-C [address] [address] [phone] 06/29/2019 Pharmacy Pharmacy [facility] [address] [address] 07/10/2019 Office Visit Sleep Disorders Celsa Tafoya CRNP [address] [address] [phone] 08/24/2019 Office Visit Nephrology Gia White MD [address] [address] [phone] 11/07/2019 Office Visit Family Medicine Kevin Whiteside DO [address] [address] [phone] Health Maintenance Due Date Last Done Comments PAP SMEAR-EVERY 3 YRS,AGES 21-65 05/11/2016 05/11/2013, 03/01/2008, 10/19/2006, Additional history exists CKD PHOS USE SMARTSET 08415 12/29/2018 04/01/2018, 08/26/2009, 08/25/2009, Additional history exists Influenza Vaccine (FLU shot) (#1) 2019 06/12/2018, 06/12/2018, 07/14/2017, Additional history exists BREAST CANCER SCREENING DISCUSSION YEARLY AGES 40-75 06/23/2019 06/23/2018, 05/09/2015, 07/12/2014, Additional history exists DIABETES-HGBA1C EVERY 6 MONTHS 09/13/2019 03/14/2019, 09/27/2018, 05/01/2018, Additional history exists CKD GFR USE SMARTSET 79609 11/24/201905/24, 05/07/2019, 03/14/2019, Additional history exists DIABETES-FOOT EXAM 01/02/2020 01/01/2019, 0 12/29/2017, 10/21/2016, Additional history exists CKD HGB USE SMARTSET 30547 02/27/202002/26, 12/23/2018, 12/08/2018, Additional history exists Yearly B-12 03/14/2020 03/14/2019, 05/16/2018 DIABETES-EYE EXAM 04/05/2020 04/05/2019, (Done elsewhere), 12/18/2009, Additional history exists DIABETES-URINE MICROALBUMIN EVERY 12 MONTHS 05/24/2020 05/24/2019, 02/26/2019, 12/23/2018, Additional history exists PNEUMOCOCCAL 19-64 MEDIUM RISK [...] Documents on File Type Date Recorded Patient Vocational Adviser Expl anation Advanced Directive 08/22/2009 12:00 [...]
--- OUTSIDE RECORDS SUMMARY | 2023-06-01 05:42 | External Medical Summary ---
Author Name Unknown Address [address] [facility] [place] [id number] Phone Organization K01:[facility] [address] [place] [id number] Laboratory Report Ordering Provider Test Date Status JAKEQUETA TAISANCHEZ 05/24/2019 14:43:00 Final Observation Date Value Abnormality Reference Status PTH-Intact [facility] 05/24/2019 23:14 25 1 5-65 Final Performing Location [place] [address] [facility] [address]
--- OUTSIDE RECORDS SUMMARY | 2023-06-01 05:42 | External Medical Summary | Summary of Care ---
Author Name Unknown Organization [place] [address] Care Team Providers Care Control Clerk Repairs Name Role Phone Kevin Whiteside Primary Care Provider Reason for Visit * Reason Comments [facility]: Maintenance Encounter Details Date Type Department Care Team Description 06/06/2019 Home Visit [facility] [address] [facility] [place] [address] Teddy Mccrary RN [address] [facility] [place] [address] [phone] Chronic diastolic congestive heart failure (HCC)*; Benign hypertensive heart and kidney disease with [...] as of this encounter (statuses as of 06/09/2019) Medications Medication Sig Dispensed Refills Start Date [...] Cap 5 01/01/2019 Active Vitamin D, Ergocalciferol, 71896 units CapsuleIndications:V itamin D deficiency Take one capsule by mouth once a week 13 Cap 0 01/13/2019 Active Blood Glucose Monitoring Suppl ([employer] ULTRA 2) w/Device KIT Use to [...] as of this encounter (statuses as of 06/09/2019) Active Problems Problem Noted Date 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, NYHA class 1 and CKD stage 3 05/14/2019 Other atherosclerosis of [place] arteries of extremities, left leg 02/26/2019 Lumbar [...] 10/14/2014 Overview: ICD-10 update of inactive term [place] filter in place 08/19/2014 History of [...] as of this encounter (statuses as of 06/09/2019) Resolved Problems Problem Noted Date Resolved Date [...] as of this encounter (statuses as of 06/09/2019) Immunizations Name Administration Dates Next Due Pneumococcal [...] Sign Reading Time Taken Comments Blood Pressure 128/78 06/06/2019 3:03 PM EDT Pulse 96 06/06/2019 3:03 PM EDT Temperature 37.2 C (98.9 F) 06/06/2019 3:03 PM ED T Respiratory Rate 16 06/06/2019 3:03 PM EDT Oxygen Saturation 94% 06/06/2019 3:03 PM EDT room air Inhaled Oxygen Concentration - - Weight 151 kg (333 lb) 06/06/2019 3:03 PM EDT Height - - Body Mass Index 55.41 01/23/2019 3:50 PM EDT documented in this encounter Progress Notes * Teddy Mccrary RN - 06/06/2019 2:50 PM EDT [facility] [place] Monthly Visit Date: 06/06/2019 Time: 2:58 PM Name: Stephanie Camp : 1955 Current Concerns: Driving Diagnoses for [facility] Enrollment: O2 dependent, CHF, ELISSA, T2DM, Obesity, CKD Seeing pt for ROSA #4. Fluid balance looks stable today. Ankles with trace edema bilaterally. Lungs clear. Had been on 2L outside when I arrived, but now has been on room air inside. Reports a flare of her fibromyalgia pain ONLY ON THE LEFT SIDE. Shooting stabbing pain. Now 7/10. This past weekend it was worse she reports. (Left leg, breast, ar, back of neck, toes). Took 2 motrin and a flxeril and took a hot shower. The combination did bring some relief. She considered called [facility], but tried the remedies above first. Physical Exam: LMP 03/11/2003 Pain 7 Physical Exam Constitutional: She is oriented to person, place, and time. Eyes: Conjunctivae are normal. Pulmonary/Chest: Effort normal. No respiratory distress. She has no wheezes. She has no rales. Abdominal: Soft. Not able to hear bowel sounds Musculoskeletal: She exhibits edema. She exhibits no tenderness. Neurological: She is alert and oriented to person, place, and time. Skin: Skin is warm and dry. Psychiatric: She has a normal mood and affect. Problems/Symptoms: Review of Systems Respiratory: Negative. Gastrointestinal: Positive for constipation (pt believes tylenol contributes to this). Reports she did have svl BMs in last 24 hours Genitourinary: Negative. Musculoskeletal: Positive for myalgias (see notes above). Neurological: Negative. Psychiatric/Behavioral: Negative. Medication Reconciliation: (See medication list) Does patient take medications as ordered: Yes Patient Well Being: PHQ2/9: @[id number]@ Fluid balance looks stable today. Reports a flare of her fibromyalgia pain SNP Member: No Advanced Care Planning: Not addressed this visit Patient's Goals of Care: 1. Less pain 2. Maintain fluid balance 3. Continue to breathe better Reinforcement/Education: Reinforced medication regimen. Timing. Treatment/Plan: Treatment(s) Given: Evaluation Patient's 'Red Flags': 4. Worsening pain 5. Worsening fluid balance 6. Worsening breathing Patient Needs to Remember: Call [facility] for red flags Follow Up: Patient encouraged to call the intake phone number for all urgent but not emergent issues. Is the patient new to [facility] within the last 30 days? Yes, Is this a Transitions of Care visit? Yes, this is the 2nd visit or later, Yes cellular connectivity. Was their Readmission Risk Score less than 25%? No (22%) LES to see pt for ROSA #5 I am Scheduled to follow up with patient in 3 weeks Teddy Mccrary RN 06/06/2019 2:58 PM documented in this encounter Plan of Treatment Upcoming Encounters Date Type Specialty Care Team Description 06/12/2019 [facility] Visit [facility] Saira Salmon, [facility] Health Quantitative Consultant [address] [place] [address] [phone] 06/15/2019 Office Visit Cardiology Marjorie Powell PA-C [address] [place] [address] [address] [phone] 06/29/2019 Pharmacy Pharmacy [facility] [address] [place] [address] 07/03/2019 Home Visit [facility] Teddy Mccrary RN [address] [place] [address] [phone] 07/10/2019 Office Visit Sleep Disorders Celsa Tafoya CRNP [address] [place] [address] [phone] 08/24/2019 Office Visit Nephrology Gia White MD [address] [place] [address] [phone] 11/07/2019 Office Visit Family Medicine Kevin Whiteside DO [address] [place] [address] [phone] Health Maintenance Due Date Last Done Comments PAP SMEAR-EVERY 3 YRS,AGES 21-65 05/11/2016 05/11/2013, 03/01/2008, 10/19/2006, Additional history exists CKD PHOS USE SMARTSET 14235 12/29/2018 0401/2018, 08/26/2009, 08/25/2009, Additional history exists Influenza Vaccine (FLU shot) (#1) 2019 06/12/2018, 06/12/2018, 07/14/2017, Additional history exists BREAST CANCER SCREENING DISCUSSION YEARLY AGES 40-75 06/23/2019 06/23/2018, 05/09/2015, 07/12/2014, Additional history exists DIABETES-HGBA1C EVERY 6 MONTHS 09/13/2019 03/14/2019, 09/27/2018, 05/01/2018, Additional history exists CKD GFR USE SMARTSET 94685 11/24/201905/24, 05/07/2019, 03/14/2019, Additional history exists DIABETES-FOOT EXAM 01/02/2020 01/01/2019, 0 12/29/2017, 10/21/2016, Additional history exists CKD HGB USE SMARTSET 74304 02/27/202002/26, 12/23/2018, 12/08/2018, Additional history exists Yearly [...] failure (HCC)- Primary Chronic diastolic heart failure 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
--- OUTSIDE RECORDS SUMMARY | 2023-06-01 05:42 | External Medical Summary ---
Author Name Unknown Address [address] [place], [place] [address] Phone Organization K09:[facility] [address] [place] [address] Laboratory Report Ordering Provider Test Date Status TRACY LARRY 05/24/2019 14:43:00 Final Observation Date Value Abnormality Reference Status BUN 05/24/2019 16:48 29 Above high normal 6-20 Final Creatinine 05/24/2019 16:48 1.7 Above high normal 0.5- 1.0 Final Performing Location [facility] [address] [place] [address]
--- OUTSIDE RECORDS SUMMARY | 2023-06-01 05:42 | External Medical Summary | Summary of Care ---
Author Name Unknown Organization [place] [address] Care Team Providers Care Refrigerated Company Driver Name Role Phone Kevin Whiteside Primary Care Provider Reason for Visit * Reason Comments [facility]: Maintenance Encounter Details Date Type Department Care Team Description 05/23/2019 Telephone [facility] [address] [place] [address] [facility], Nurse [address] [place] [address] [phone] [facility]: Maintenance Allergies Active Allergy Reactions Severity Noted Date Comments Pollen 05/18/2019 Heparin 09/04/2009 Heparin Induced Thrombocytopenia Empagliflozin Other (Please comment) Medium 05/17/2018 3 yeast infections in 6 weeks after starting Morphine And Related 09/16/1997 Hallucinations Tetanus Toxoid Other (Please comment) 06/15/2011 Passed out documented as of this encounter (statuses as of 05/30/2019) Medications Medication Sig Dispensed Refills Start Date [...] Cap 5 9 Active Vitamin D, Ergocalciferol, 01337 units CapsuleIndications: Vitamin D deficiency Take one capsule by mouth once a week 13 Cap 0 9 Active Blood Glucose Monitoring Suppl ([employer] ULTRA 2) w/Device KIT Use to test [...] all periods of sleep. 0 9 Active spironolactone (ALDACTONE) 25 MG Tablet Take 0.5 Tabs by mouth daily. 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 Epic reviewed and noted 2 pm with RN. Made aware. No other issues or concerns voiced at time of call. Chrystal Mooney RN [facility] Intake Chart to RN. documented in this encounter Plan of Treatment Upcoming Encounters Date Type Specialty Care Team Description 06/06/2019 Home Visit [facility] Teddy Mccrary RN [address] [place] [address] [phone] 06/12/2019 Home Visit [facility] Saira Salmon, Community [facility] Email Campaign Specialist [address] [place] [address] [phone] 06/15/2019 Office Visit Cardiology Marjorie Powell PA-C [address] [place] [address] [phone] 06/29/2019 Pharmacy Pharmacy [facility] [address] [place] [address] 07/10/2019 Office Visit Sleep Disorders Celsa Tafoya CRNP [address] [place] [address] 08/24/2019 Office Visit Nephrology Gia White MD [address] [facility] [place] [address] 11/07/2019 Office Visit Family Medicine Kevin Whiteside DO [address] [place] [address] [phone] Health Maintenance Due Date Last Done Comments PAP SMEAR-EVERY 3 YRS,AGES 21-65 05/11/2016 05/11/2013, 03/01/2008, 10/19/2006, Additional history exists CKD PHOS USE SMARTSET 73627 12/29/2018 04/0 01/2018, 08/26/2009, 08/25/2009, Additional history exists Influenza Vaccine (FLU shot) (#1) 2019 06/12/2018, 06/12/2018, 07/14/2017, Additional history exists BREAST CANCER SCREENING DISCUSSION YEARLY AGES 40-75 06/23/2019 06/23/2018, 05/09/2015, 07/12/2014, Additional history exists DIABETES-HGBA1C EVERY 6 MONTHS 09/13/2019 03/14/2019, 09/27/2018, 05/01/2018, Additional history exists CKD GFR USE SMARTSET 52197 11/24/201905/24, 05/07/2019, 03/14/2019, Additional history exists DIABETES-FOOT EXAM 01/02/2020 01/01/2019, 0 12/29/2017, 10/21/2016, Additional history exists CKD HGB USE SMARTSET 27412 02/27/202002/26, 12/23/2018, 12/08/2018, Additional history exists Yearly [...] on File Type Date Recorded Patient Business Supervisor Expl anation Advanced Directive 08/22/2009 12:00 [...]
--- OUTSIDE RECORDS SUMMARY | 2023-06-01 05:42 | External Medical Summary | Summary of Care ---
Author [place] [address] Care Team Providers Care Office Coordinator Receptionist Name Role Phone Kevin Whiteside DO [...] of insulin ([facility]) Body mass index (BMI) of 50.0 to 59.9 in adult ([facility]) Chronic kidney disease (CKD) stage G3b/A3, moderately decreased glomerular filtration rate (GFR) between 30-44 mL/min/1.73 square meter and albuminuria creatinine ratio greater than 300 mg/g ([facility]) Kevin Whiteside DO [address] [place] [address] Encounter Details Date Type Department Care Team Description 05/24/2019 Office Visit Nephrology, [address] [address] Gia White MD [address] [place] [address] 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, NYHA class 1 and CKD stage 3 ([facility])*; HTN, goal below 130/80; Hyperparathyroidism, secondary renal ([facility]) Allergies Active Allergy Reactions Severity Noted Date Comments Pollen 05/18/2019 Heparin 09/04/2009 Heparin Induced Thrombocytopenia Empagliflozin Other (Please comment) Medium 05/17/2018 3 yeast infections in 6 weeks after starting Morphine And Related 09/16/1997 Hallucinations Tetanus Toxoid Other (Please comment) 06/15/2011 Passed out documented as of this encounter (statuses as of 05/31/2019) Medications Medication Sig Dispensed Refills Start Date [...] Cap 5 9 Active Vitamin D, Ergocalciferol, 36286 units CapsuleIndications: Vitamin D deficiency Take one capsule by mouth once a week 13 Cap 0 9 Active Blood Glucose Monitoring Suppl ([employer] ULTRA 2) w/Device KIT Use to [...] as of this encounter (statuses as of 05/31/2019) Active Problems Problem Noted Date 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 Shehas history of [...] right-sided hydronephrosis. She was hospitalized at the [facility] for shortness of breath found have [...] In the interim she was hospitalized at [facility] on 05/09/2019 with the weakness and CHF exacerbation. Creatinine peaked at 2.3. She is now taking Lasix 40 mg daily and Aldactone 25 mg daily. She is on chronic oxygen with exercise. No leg swelling. She has lost about 6 lb since hospital discharge. She is cutting down on salt. 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 Glucose Blood ([employer] ULTRA BLUE) STRP Check sugars 3-4 times [...] 30 Tab 5 Blood Glucose Monitoring Suppl ([employer] ULTRA 2) w/Device KIT Use to test BG values 1 Kit 0 Vitamin D, Ergocalciferol, 87144 units Capsule Take one capsule by mouth [...] Patient presents with Follow Up Discharged from [facility] 05/10/19 documented in this encounter Miscellaneous Notes * Result Teri Campbell RN - 05/31/2019 2:39 PM EDT Letter sent * Result Gia Chery MD - 05/31/2019 12:58 PM EDT PTH and vitamin-D are normal. No changes. Gia White MD documented in this encounter Plan of Treatment Upcoming Encounters Date Type Specialty Care Team Description 06/06/2019 Home Visit [facility] Teddy Mccrary RN [address] [place] [address] [phone] 06/12/2019 Home Visit [facility] [place], [place], [facility] House Supervisor [address] [place] [address] [phone] 06/15/2019 Office Visit Cardiology Marjorie Powell PA-C [address] [place] [address] [phone] 06/29/[address] [facility] [address] [place] [address] 07/10/2019 Office Visit Sleep Disorders Celsa Tafoya CRNP [address] [place] [address] [phone] 08/24/2019 Office Visit Nephrology Gia White MD [address] [place] [address] 11/07/2019 Office Visit Family Medicine Kevin Whiteside DO [address] [place] [address] [phone] Health Maintenance Due Date Last Done Comments PAP SMEAR-EVERY 3 YRS,AGES 21-65 05/11/2016 05/11/2013, 03/01/2008, 10/19/2006, Additional history exists CKD PHOS USE SMARTSET 49365 12/29/2018 04/0 01/2018, 08/26/2009, 08/25/2009, Additional history exists Influenza Vaccine (FLU shot) (#1) 2019 06/12/2018, 06/12/2018, 07/14/2017, Additional history exists BREAST CANCER SCREENING DISCUSSION YEARLY AGES 40-75 06/23/2019 06/23/2018, 05/09/2015, 07/12/2014, Additional history exists DIABETES-HGBA1C EVERY 6 MONTHS 09/13/2019 03/14/2019, 09/27/2018, 05/01/2018, Additional history exists CKD GFR USE SMARTSET 97414 11/24/201905/24, 05/07/2019, 03/14/2019, Additional history exists DIABETES-FOOT EXAM 01/02/2020 01/01/2019, 0 12/29/2017, 10/21/2016, Additional history exists CKD HGB USE SMARTSET 25774 02/27/202002/26, 12/23/2018, 12/08/2018, Additional history exists Yearly [...] Procedure Name Priority Date/Time Associated Diagnosis Comments ALBUMIN / CREATININE RATIO, URINE Routine 05/24/2019 2:59 PM EDT HTN, goal below 130/80 25-HYDROXY VITAMIN D Routine 05/24/2019 2:43 PM EDT 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, NYHA class 1 and CKD stage 3 (HCC) COMPR METAB PANEL Routine 05/24/2019 2:4 3 PM EDT HTN, goal below 130/80 PTH, INTACT Routine 05/24/2019 2:43 PM EDT 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, NYHA class 1 and CKD stage 3 (HCC) documented in this encounter Results * ALBUMIN / CREATININE RATIO, URINE (05/24/2019 2:59 PM EDT) ALBUMIN, RD URINE <1.20 mg/dL [facility] CREATININE, RD URINE 76 mg/dL [facility] MICROALBUMIN RATIO <16 Comment: Normal: <30 mg/g creatinine High: 30-300 mg/g creatinine Very High: >300 mg/g creatinine Nephrotic: >2200 mg/g creatinine <30 mg/g creat [facility] Specimen Performing Organization Address City/State/Zipcod e Phone Number [facility], [address] [place] [address] * COMPR METAB PANEL (05/24/2019 2:43 PM EDT) BUN 29(H) 6 - 20 mg/dL [place] CREATININE 1.7(H) Comment: GFR should be used to assess renal function.Plasma /Serum creatinine may not be able to properly reflect renal function in some cases. 0.5 - 1.0 mg/dL [place] E GLOM FILT RATE 31.5(L)Comment:If patient is , multiply estimated GFR by 1.159. >60 [place] SODIUM 136 135 - 146 mmol/L [place] POTASSIUM 5.5(H) 3.5 - 5.1 mmol/L [place] CHLORIDE 93(L) 98 - 107 mmol/L [place] CO2 25 22 - 32 mmol/L [place] ANION GAP 18(H) 7 - 15 mmol/L [place] GLUCOSE 268(H) 70 - 120 mg/dL [place] ALBUMIN 4.3 3.8 - 5.0 g/dL [place] AST 33Comment:RESULT MAY BE FALSELY ELEVATED DUE TO HEMOLYSIS 10 - 35 U/L [place] ALKALINE PHOSPHATASE 92 0 - 153 U/L [place] BILIRUBIN, TOTAL 0.4 0 - 1.2 mg/dL [place] CALCIUM 10.1 8.4 - 10.2 mg/dL [place] PROTEIN 8.2 6.0 - 8.3 g/dL [place] ALT 17 10 - 35 U/L [place] Specimen Performing Organization Address City/[facility] Phone Number [facility], [address] [place] [address] * PTH, INTACT (05/24/2019 2:43 PM EDT) PTH, INTACT 25 15 - 65 pg/mL [facility] TER Specimen Performing Organization Address City/[facility] Phone Number [facility], [address] [place] [facility] [place] [address] * 25-HYDROXY VITAMIN D (05/24/2019 2:43 PM EDT) 25OH VITAMIN D TOTAL 41 Comment: Deficient: <20 ng/mL Insufficient: 20-29 ng/mL Recommended/Optimum:3 0-50 ng/mL Vitamin D intoxication is rare. If suspicious of Vitamin D toxicity, evaluation of serum Calcium and PTH is recommended. 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
--- OUTSIDE RECORDS SUMMARY | 2023-06-01 05:42 | External Medical Summary ---
Author Name Unknown Address [address] [facility] [place] [address] Phone Organization K0G:[facility] [address] [address] Laboratory Report Ordering Provider Test Date Status KVNGARI 06/15/2019 13:59:00 Final Observation Date Value Abnormality Reference Status BUN 06/15/2019 15:42 27 Above high normal 6-20 Final Creatinine 06/15/2019 15:42 1.5 Above high normal 0.5- 1.0 Final Performing Location [facility] [address] [place] [address]
--- OUTSIDE RECORDS SUMMARY | 2023-06-01 05:42 | External Medical Summary | Summary of Care ---
Author Name Unknown Organization [place] [address] Care Team Providers Care Oracle Manufacturing Consultant Name Role Phone Kevin Whiteside Primary Care Provider Reason for Visit * Reason Comments [facility]: Maintenance Encounter Details Date Type Department Care Team Description 06/12/2019 Scheduled Telephone [facility] [address] [place] [address] [facility] Polysomnographic Technician [address] [facility] [place] [address] [phone] Allergies Active Allergy Reactions Severity Noted Date Comments Pollen 05/18/2019 Heparin 09/04/2009 Heparin Induced Thrombocytopenia Empagliflozin Other (Please comment) Medium 05/17/2018 3 yeast infections in 6 weeks after starting Morphine And Related 09/16/1997 Hallucinations Tetanus Toxoid Other (Please comment) 06/15/2011 Passed out documented as of this encounter (statuses as of 06/12/2019) Medications Medication Sig Dispensed Refills Start Date [...] Cap 5 01/01/2019 Active Vitamin D, Ergocalciferol, 04916 units CapsuleIndications:V itamin D deficiency Take one capsule by mouth once a week 13 Cap 0 01/13/2019 Active Blood Glucose Monitoring Suppl (ProfigTOUCH ULTRA 2) w/Device KIT Use to test [...] as of this encounter (statuses as of 06/12/2019) Active Problems Problem Noted Date 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 Pt reports swelling is better. Firbromyalgia pain the same. She is "coping and accepting". Started a fiber shake today to help with constipation. Appt made for next week. Reinforced plan of care. Patient verbalized understanding. Explained/reinforced role of [facility] Polysomnographic Technician. Encouraged to call with any issues or concerns. Gave 833 number and contact information. documented in this encounter Plan of Treatment Upcoming Encounters Date Type Specialty Care Team Description 06/15/2019 Office Visit Cardiology Marjorie Powell PA-C [address] [address] [address] [phone] 06/20/2019 [facility] Visit [facility] [address] [address] [phone] 06/29/2019 Pharmacy Pharmacy [facility] Jeramie [address] [place] [address] 07/03/2019 Home Visit [facility] Teddy Mccrary, RN [address] [address] [phone] 07/10/2019 Office Visit Sleep Disorders Celsa Tafoya CRNP [address] [address] [phone] 08/24/2019 Office Visit Nephrology Gia White MD [address] [address] [phone] 11/07/2019 Office Visit Family Medicine Kevin Whiteside DO [address] [address] [phone] Health Maintenance Due Date Last Done Comments PAP SMEAR-EVERY 3 YRS,AGES 21-65 05/11/2016 05/11/2013, 03/01/2008, 10/19/2006, Additional history exists CKD PHOS USE SMARTSET 22922 12/29/2018 04/0 01/2018, 08/26/2009, 08/25/2009, Additional history exists Influenza Vaccine (FLU shot) (#1) 2019 06/12/2018, 06/12/2018, 07/14/2017, Additional history exists BREAST CANCER SCREENING DISCUSSION YEARLY AGES 40-75 06/23/2019 06/23/2018, 05/09/2015, 07/12/2014, Additional history exists DIABETES-HGBA1C EVERY 6 MONTHS 09/13/2019 03/14/2019, 09/27/2018, 05/01/2018, Additional history exists CKD GFR USE SMARTSET 94226 11/24/201905/24, 05/07/2019, 03/14/2019, Additional history exists DIABETES-FOOT EXAM 01/02/2020 01/01/2019, 0 12/29/2017, 10/21/2016, Additional history exists CKD HGB USE SMARTSET 04468 02/27/202002/26, 12/23/2018, 12/08/2018, Additional history exists Yearly [...] Documents on File Type Date Recorded Patient Wage Hand Expl anation Advanced Directive 08/22/2009 12:00 [...]
--- OUTSIDE RECORDS SUMMARY | 2023-06-01 05:43 | External Medical Summary | Summary of Care ---
Author Name Unknown Organization [place] [address] Care Team Providers Care Principal Consultant Name Role Phone Kevin Whiteside Primary Care Provider Reason for Visit * Reason Comments Dosage Adjustment In Person (Anticoag Cl inic) Diabetes Follow-Up Encounter Details Date Type Department Care Team Description 05/18/2019 Pharmacy Pharmacy, [facility] [address] [facility] [place] [address] [facility] [address] [facility] [place] [address] Uncontrolled type 2 diabetes mellitus with stage 3 chronic kidney disease, with long-term current use of insulin ([facility])*; Type 2 diabetes mellitus with hemoglobin A1c goal of 7.0%-8.0% ([facility]) Allergies Active Allergy Reactions Severity Noted Date Comments Heparin 09/04/2009 Heparin Induced Thrombocytopenia Empagliflozin Other (Please comment) Medium 05/17/2018 3 yeast infections in 6 weeks after starting Morphine And Related 09/16/1997 Hallucinations Tetanus Toxoid Other (Please comment) 06/15/2011 Passed out documented as of this encounter (statuses as of 05/18/2019) Medications Medication Sig Dispensed Refills Start Date [...] a day. 270 Cap 5 01/01/2019 Active spironolactone (ALDACTONE) 25 MG Tablet Take 0.5 Tabs by mouth daily. 45 Tab 5 01/12/2019 Active Vitamin D, Ergocalciferol, 13154 units CapsuleIndications:V itamin D deficiency Take one capsule by mouth once a week 13 Cap 0 01/13/2019 Active Blood Glucose Monitoring Suppl (ONETOUCH ULTRA [...] mouth every other day. 0 04/12/2019 Active traMADol (ULTRAM) 50 MG Tablet 0 05/10/2019 Active furosemide (LASIX) 40 MG TabletIndications:Ch ronic diastolic congestive heart failure (HCC) Take 1 Tab by mouth 2 times a day. 180 Tab 3 05/15/2019 Active oxygen GASIndications:ELISSA (obstructive sleep apnea) 2 L/min(Oxygen). 2 LPM bled through CPAP 11 cwp during all periods of sleep. 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, NYHA class 1 and CKD stage 3 05/14/2019 Other atherosclerosis of [place] arteries of extremities, left leg 02/26/2019 Lumbar [...] as of this encounter (statuses as of 05/18/2019) Resolved Problems Problem Noted Date Resolved Date [...] as of this encounter (statuses as of 05/18/2019) Immunizations Name Administration Dates Next Due Pneumococcal [...] this encounter Progress Notes * Rose Barton, [facility] - 05/18/2019 9:46 AM EDT Medication Therapy Disease Management CSII [...] weekly Medtronic 630G Insulin Pump (Serial Number: [id number]) Infusion Set: SureT Insulin: Novolog Basal Rate: 4.0 units/hour Bolus: 20 units with breakfast, 20units with lunch and 20units with supper and 8 units with bedtimesnack Bolus wizard: on and using ICR: 4 ISF: 14 Blood Glucose Goals: 120-150 Active Insulin Time: 4 hours [facility] Blood Glucose Review: Unable to download pump today due to issues with Medtronic website Average BG values per pump 250-280 s (mg/dL) Hypoglycemia Assessment: 1. Do you [...] A1c goal of 7.0%-8.0% ([facility]) E11.9 Fibromyalgia M79.7 Abnormality of gait R26.9 Restless legs syndrome G25.81 Gastroesophageal reflux disease with esophagitis K21.0 Uncontrolled type 2 diabetes mellitus with stage 3 chronic kidney disease, with long-term current use of insulin ([facility]) E11.22, E11.65, N18.3, Z79.4 Body mass index (BMI) of 50.0 to 59.9 in adult ([facility]) Z68.43 Controlled substance agreement signed Z79.899 Chronic diastolic congestive heart failure ([facility]) I50.32 Thoracic back pain M54.6 Mild episode of recurrent major depressive disorder ([facility]) F33.0 Lumbar radiculopathy M54.16 Other atherosclerosis of [place] arteries of extremities, left leg ([facility]) I70.292 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 180 Tab 3 oxygen GAS 2 L/min(Oxygen). 2 LPM bled through CPAP 11 cwp during all periods of sleep. traMADol (ULTRAM) 50 MG Tablet Magnesium Oxide 400 (241.3 mg) Tablet Take 400 mg by mouth every other day. Glucose Blood (ONETOUCH ULTRA BLUE) STRP Check sugars 3-4 times daily 400 Strip 2 Semaglutide (OZEMPIC) 0.25 or 0.5 MG/DOSE SOPN Inject 0.25 mg once weekly for 2 weeks and then 0.50mg weekly 1 Pre-filled Pen Syringe Dosing Unit [...] 30 Tab 5 Blood Glucose Monitoring Suppl (Defixo ULTRA 2) w/Device KIT Use to test BG values 1 Kit 0 Vitamin D, Ergocalciferol, 86519 units Capsule Take one capsule by mouth once a week 13 Cap 0 spironolactone (ALDACTONE) 25 MG Tablet Take 0.5 Tabs by mouth daily. 45 Tab 5 gabapentin (NEURONTIN) 300 MG Capsule Take 1 [...] Objective: The ASCVD Risk score (Freddy JOHNS Jr., et al., 2013) failed to calculate for the following reasons: The patient has a prior MS or stroke diagnosis Estimated body mass index is 55.75 kg/m as calculated from the following: Height as of 01/23/19: 1.651 m (5' 5"). Weight as of 05/15/19: 152 kg (335 lb). BP Readings from Last 3 Encounters: 05/15/19 112/62 05/14/19 136/68 05/07/19 124/70 No POC orders found HEMOGLOBIN, A1C(%) Nessa Dt/Tm Resulted Value Status 03/14/19 1:54P 03/14/19 9.4* FINAL 09/27/18 1:48P 09/27/18 9.5* FINAL 05/01/18 9:12A 05/01/18 10.0* FINAL MICROALBUMIN RATIO(mg/g creat) Nessa Dt/Tm Resulted Value Status 05/01/18 9:13A 05/01/18 <18 FINAL 03/03/17 12:37P 03/03/17 <15 FINAL 06/24/16 3:28P 06/24/16 <12 FINAL LDL (CALCULATED)(mg/dL) Nessa Dt/Tm Resulted Value Status 03/14/19 1:54P 03/14/19 FINAL Value: UNINTERPRETABLE RESULT BASIC METAB PANEL, BMP Nessa Dt/Tm Resulted Value Status BUN (mg/dL) 05/07/19 2:14P 05/07/19 34* F CREATININE (mg/dL) 05/07/19 2:14P 05/07/19 2.1* F E GLOM FILT RATE ( ) 05/07/19 2:14P 05/07/19 24.0* F SODIUM (mmol/L) 05/07/19 2:14P 05/07/19 136 F POTASSIUM (mmol/L) 05/07/19 2:14P 05/07/19 4.5 F CHLORIDE (mmol/L) 05/07/19 2:14P 05/07/19 92* F CO2 (mmol/L) 05/07/19 2:14P 05/07/19 27 F ANION GAP (mmol/L) 05/07/19 2:14P 05/07/19 17* F GLUCOSE (mg/dL) 05/07/19 2:14P 05/07/19 276* F CALCIUM (mg/dL) 05/07/19 2:14P 05/07/19 9.7 F ALT(U/L) Nessa Dt/Tm Resulted Value Status 10/26/18 9:39A 10/26/18 23 FINAL Assessment & Plan: Glucose control is stable but not at goal, patient will adjust pump settings as noted below. Patient's BG values are improved since last visit. Recommend to increase basal rate slightly more to continue to trend down at this time. Patient is agreeable to changes. Patient to SMBG at least 4 times daily, before each meal and at bedtime. Patient aware to contact clinic if any hypoglycemia before next visit. Reviewed rule of 15s. Reviewed appropriate management of hyperglycemia as noted in pump start documentation. Diabetes Medications: Ozempic 0.50 mg weekly Medtronic 630G Insulin Pump (Serial Number: [id number]) Infusion Set: SureT Insulin: Novolog Basal Rate: 4.25 units/hour Bolus: 20 units with breakfast, 20units with lunch and 20units with supper and 8 units with bedtimesnack Bolus wizard: on and using ICR: 4 ISF: 14 Blood Glucose Goals: 120-150 Active Insulin Time: 4 hours Return to Clinic: 6 week(s) Next Office Visit: 06/29/2019 Scheduled Provider(s): [facility] Jeramie Barton [facility] Clinical Pharmacist Medication Therapy Disease Management 05/18/2019, 9:46 AM documented in this encounter Plan of Treatment Upcoming Encounters Date Type Specialty Care Team Description 05/18/2019 [facility] Visit [facility] Teddy Mccrary RN [address] [address] [phone] 05/21/2019 Office Visit Nephrology Gia White MD [address] [place] [address] [phone] 06/15/2019 Office Visit Cardiology Marjorie Powell PA-C [address] [address] [phone] 06/29/2019 Pharmacy Pharmacy [facility] Jeramie [address] [place] [address] 07/10/2019 Office Visit Sleep Disorders Celsa Tafoya CRNP [address] [address] [phone] 11/07/2019 Office Visit Family Medicine Kevin Whiteside DO [address] [address] [phone] Health Maintenance Due Date Last Done Comments PAP SMEAR-EVERY 3 YRS,AGES 21-65 05/11/2016 05/11/2013, 03/01/2008, 10/19/2006, Additional history exists CKD PHOS USE SMARTSET 20324 12/29/2018 04/0 01/2018, 08/26/2009, 08/25/2009, Additional history exists Influenza Vaccine (FLU shot) (#1) 2019 06/12/2018, 06/12/2018, 07/14/2017, Additional history exists BREAST CANCER SCREENING DISCUSSION YEARLY AGES 40-75 06/23/2019 06/23/2018, 05/09/2015, 07/12/2014, Additional history exists DIABETES-HGBA1C EVERY 6 MONTHS 09/13/2019 03/14/2019, 09/27/2018, 05/01/2018, Additional history exists CKD GFR USE SMARTSET 65931 11/07/201905/07, 03/14/2019, 02/26/2019, Additional history exists DIABETES-FOOT EXAM 01/02/2020 01/01/2019, 0 12/29/2017, 10/21/2016, Additional history exists CKD HGB USE SMARTSET 85604 02/27/202002/26, 12/23/2018, 12/08/2018, Additional history exists DIABETES-URINE [...] Documents on File Type Date Recorded Patient Improvement Analyst Expl anation Advanced Directive 08/22/2009 12:00 [...]
--- OUTSIDE RECORDS SUMMARY | 2023-06-01 05:43 | External Medical Summary | Summary of Care ---
Author Name Unknown Organization [place] [address] Care Team Providers Care Provider Scribe Name Role Phone Kevin Whiteside Primary Care Provider Reason for Visit * Reason Comments [facility]: Maintenance Encounter Details Date Type Department Care Team Description 05/23/2019 Home Visit [facility] [address] 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, NYHA class 1 and CKD stage 3 ([facility]) Allergies Active Allergy Reactions Severity Noted Date [...] Tab 5 01/12/2019 Active Vitamin D, Ergocalciferol, 67691 units CapsuleIndications:V itamin D deficiency Take one capsule by mouth once a week 13 Cap 0 01/13/2019 Active Blood Glucose Monitoring Suppl (Retrotope ULTRA 2) w/Device KIT Use to test [...] CKD stage 3 05/14/2019 Other atherosclerosis of [place] arteries of extremities, left leg 02/26/2019 [...] 10/14/2014 Overview: ICD-10 update of inactive term [place] filter in place 08/19/2014 History of pulmonary [...] Sign Reading Time Taken Comments Blood Pressure 114/60 05/23/2019 1:57 PM EDT Pulse 90 05/23/2019 1:57 PM EDT Temperature - - Respiratory Rate 18 05/23/2019 1:57 PM EDT Oxygen Saturation 93% 05/23/2019 1:57 PM EDT Inhaled Oxygen Concentration - - Weight 150.1 kg (331 lb) 05/23/2019 1:57 PM EDT Height - - Body Mass Index 55.08 01/23/2019 3:50 PM EDT documented in this encounter Progress Notes * Brooke Jose RN - 05/23/2019 1:42 PM EDT [facility] Hydrography Teacher ROSA #3 Visit Date: 05/23/2019 Time: 1:43 PM Name: Stephanie Camp : 1955 Current Concerns: Driving Diagnosis: CHF, Diabetes, ELISSA, CKD Oxygen at night with CPAP at night and with activity during the day. Pt ambulates with a cane or walker. She is able to go short distances without oxygen. Pt is able to bathe independently with use of grab bars and a shower chair. BSBS with a range of 100's- 216- Pt denies any difficulty with insulin pump. Pt states she has been snacking less since having the insulin pump placed. Wt today was 331 with a recent range of 333-337 the past week. Pt states having a history of UTI. No current s/s. Specimen cups left with pt in case symptoms noted. Physical Exam: BP 114/60 | Pulse 90 | Resp 18 | Wt 331 lbs (150.141kg) | BMI 55.08 kg/m | BSA 2.62 m | SaO2 93% | LMP 03/11/2003 Pain 4- in feet, controlled by Tramadol Physical Exam Constitutional: She is oriented to person, place, and time. She appears well- developed and well-nourished. Pulmonary/Chest: Effort normal and breath sounds normal. Abdominal: Soft. Bowel sounds are normal. Neurological: She is alert and oriented to person, place, and time. Skin: Skin is warm and dry. Psychiatric: She has a normal mood and affect. Her behavior is normal. Problems/Symptoms: Review of Systems Constitutional: Negative. HENT: Positive for congestion (Chronic). Eyes: Negative. Respiratory: Positive for cough (Due to post nasal drip) and shortness of breath (With exertion only). Cardiovascular: Positive for leg swelling (+1 pitting to BLE). Negative for chest pain. Gastrointestinal: Negative for diarrhea and vomiting. Endocrine: Negative. Genitourinary: Negative for difficulty urinating and dysuria. Hx UTI's, no current s/s Musculoskeletal: Negative. Skin: Positive for rash (Chronic intermittant to LFA, red, not warm or open. Pt states comes and goes). Allergic/Immunologic: Negative. Neurological: Negative for dizziness and light-headedness. Hematological: Negative. Medication Reconciliation: (See medication list) Does patient take medications as ordered: Yes Patient Well Being: PHQ2/9: @[id number]@ Pt denies any depression or anxiety. SNP Member: No Advanced Care Planning: No documentation, No discussion at this time. Patient's Goals of Care: 1. Maintain diabetes control 2. Increase mobility 3. Decrease in pain Reinforcement/Education: DIABETES: -Blood sugar testing schedule: Twice [...] vertigo Reinforced safety education and fall prevention. Treatment/Plan: Pt to gradually increase activity Continue to weigh self daily Take medications as ordered Treatment(s) Given: Evaluation, Reinforced sodium restriction , Reinforced CHO consistency, Reinforced safety education / fall prevention and Reinforced medication regimen - timing / dosing / purpose Patient's 'Red Flags': 1. Fever 2. Symptomatic hypo/hyperglycemia 3. Increasing shortness of breath with ambulating to mailboxes Patient Needs to Remember: Call [facility] with any red flags or new concerns Referrals Needed: Other None needed at this time Follow Up: Patient encouraged to call the intake phone number for all urgent but not emergent issues. Is this a Transitions of Care visit? Yes, ROSA #3 Scheduled to follow up with patient on 06/04/19 Brooke Jose RN 05/23/2019 1:43 PM documented in this encounter Plan of Treatment Upcoming Encounters Date Type Specialty Care Team Description 05/24/2019 Office Visit Nephrology Gia White MD [address] [address] 06/04/2019 [facility] Health Researcher [address] [place] [address] [phone] 06/12/2019 Home Visit [facility] Teddy Mccrary, RN [address] [address] [phone] 06/15/2019 Office Visit Cardiology Marjorie Powell PA-C [address] [address] [phone] 06/29/2019 Pharmacy Pharmacy [facility] [address] [address] 07/10/2019 Office Visit Sleep Disorders Celsa Tafoya CRNP [address] [address] [phone] 11/07/2019 Office Visit Family Medicine Kevin Whiteside DO [address] [address] [phone] Health Maintenance Due Date Last Done Comments PAP SMEAR-EVERY 3 YRS,AGES 21-65 05/11/2016 05/11/2013, 03/01/2008, 10/19/2006, Additional history exists CKD PHOS USE SMARTSET 34908 12/29/2018 04/0 01/2018, 08/26/2009, 08/25/2009, Additional history exists Influenza Vaccine (FLU shot) (#1) 2019 06/12/2018, 06/12/2018, 07/14/2017, Additional history exists BREAST CANCER SCREENING DISCUSSION YEARLY AGES 40-75 06/23/2019 06/23/2018, 05/09/2015, 07/12/2014, Additional history exists DIABETES-HGBA1C EVERY 6 MONTHS 09/13/2019 03/14/2019, 09/27/2018, 05/01/2018, Additional history exists CKD GFR USE SMARTSET 23267 11/07/201905/07, 03/14/2019, 02/26/2019, Additional history exists DIABETES-FOOT EXAM 01/02/2020 01/01/2019, 0 12/29/2017, 10/21/2016, Additional history exists CKD HGB USE SMARTSET 85484 02/27/202002/26, 12/23/2018, 12/08/2018, Additional history exists DIABETES-URINE [...] hemoglobin A1c goal of 7.0%-8.0% (HCC)- Primary Benign hypertensive heart and kidney disease with diastolic CHF, NYHA class 1 and CKD stage 3 (HCC) documented in this encounter Advance Directives Documents on File Type Date Recorded Patient Lumber Piler Expl anation Advanced Directive 08/22/2009 12:00 AM [...]
--- OUTSIDE RECORDS SUMMARY | 2023-06-01 05:43 | External Medical Summary | Summary of Care ---
Author Name Unknown Organization [place] [address] Care Team Providers Care Rides Supervisor Name Role Phone Kevin Whiteside Primary Care Provider Reason for Visit * Reason Comments [facility]: Maintenance Encounter Details Date Type Department Care Team Description 05/23/2019 Telephone [facility] [address] [place] [address] [facility], Nurse [address] [place] [address] [phone] [facility]: Maintenance Allergies Active Allergy [...] Tab 5 01/12/2019 Active Vitamin D, Ergocalciferol, 52367 units CapsuleIndications:V itamin D deficiency Take one capsule by mouth once a week 13 Cap 0 01/13/2019 Active Blood Glucose Monitoring Suppl (KnowledgeVisionTOLocalMed ULTRA 2) w/Device KIT Use to test [...] (BMI) of 50.0 to 59.9 in adult ([facility]),Hypoxemia,ELISSA (obstructive sleep apnea),HTN, goal below [...] CKD stage 3 05/14/2019 Other atherosclerosis of [place] arteries of extremities, left leg 02/26/2019 Lumbar [...] Encounters Date Type Specialty Care Team Description 05/23/2019 Home Visit [facility] Teddy Mccrary RN [address] [place] [address] [phone] 05/24/2019 Office Visit Nephrology Gia White MD [address] [place] [address] [phone] 06/04/2019 [facility] Field Account Director [address] [place] [address] [phone] 06/12/2019 Home Visit [facility] Teddy Mccrary RN [address] [place] [address] [phone] 06/15/2019 Office Visit Cardiology Marjorie Powell PA-C [address] [place] [address] [phone] 06/29/2019 Pharmacy Pharmacy [facility] Jeramie [address] [place] [address] 07/10/2019 Office Visit Sleep Disorders Celsa Tafoya CRNP [address] [place] [address] [address] [phone] 11/07/2019 Office Visit Family Medicine Kevin Whiteside DO [address] [place] [address] [phone] Health Maintenance Due Date Last Done Comments PAP SMEAR-EVERY 3 YRS,AGES 21-65 05/11/2016 05/11/2013, 03/01/2008, 10/19/2006, Additional history exists CKD PHOS USE SMARTSET 31430 12/29/2018 04/01/2018, 08/26/2009, 08/25/2009, Additional history exists Influenza Vaccine (FLU shot) (#1) 2019 06/12/2018, 06/12/2018, 07/14/2017, Additional history exists BREAST CANCER SCREENING DISCUSSION YEARLY AGES 40-75 06/23/2019 06/23/2018, 05/09/2015, 07/12/2014, Additional history exists DIABETES-HGBA1C EVERY 6 MONTHS 09/13/2019 03/14/2019, 09/27/2018, 05/01/2018, Additional history exists CKD GFR USE SMARTSET 65703 11/07/201905/07, 03/14/2019, 02/26/2019, Additional history exists DIABETES-FOOT EXAM 01/02/2020 01/01/2019, 0 12/29/2017, 10/21/2016, Additional history exists CKD HGB USE SMARTSET 95643 02/27/202002/26, 12/23/2018, 12/08/2018, Additional history exists DIABETES-URINE [...] Documents on File Type Date Recorded Patient Cryptographic Technician Expl anation Advanced Directive 08/22/2009 12:00 [...]
--- OUTSIDE RECORDS SUMMARY | 2023-06-01 05:43 | External Medical Summary | Summary of Care ---
Author Name Unknown Organization [place] [address] Care Team Providers Care High Lift Mule Operator Name Role Phone Kevin Whiteside DO Primary Care Provider Reason for Visit * Reason Comments Previsit Planning Encounter Details Date Type Department Care Team Description 05/23/2019 Telephone Family Practice [facility] [address] [place] [address] Kevin Whiteside DO [address] [facility] [place] [address] Previsit Planning Allergies Active Allergy Reactions Severity Noted Date [...] Tab 5 01/12/2019 Active Vitamin D, Ergocalciferol, 76828 units CapsuleIndications:V itamin D deficiency Take one capsule by mouth once a week 13 Cap 0 01/13/2019 Active Blood Glucose Monitoring Suppl (Animatu Multimedia ULTRA 2) w/Device KIT Use to test [...] CKD stage 3 05/14/2019 Other atherosclerosis of [place] arteries of extremities, left leg 02/26/2019 Lumbar [...] 10/14/2014 Overview: ICD-10 update of inactive term [place] filter in place 08/19/2014 History of pulmonary [...] Telephone Encounter - Sadie Coleman LPN - 05/23/2019 1:53 PM EDT Patient contacted for Care Gaps Comprehensive Care Outreach. Last Office Visit: 05/15/2019 Next Office Visit: 11/07/2019 Scheduled Provider(s): Kevin Whiteside, Health Maintenance Due Topic Date Due PAP SMEAR-EVERY 3 YRS,AGES 21-65 05/11/2016 CKD PHOS USE SMARTSET 80531 12/29/2018 BREAST CANCER SCREENING DISCUSSION YEARLY AGES 40-75 06/23/2019 Outreach action taken: Contacted: Left message. documented in this encounter Plan of Treatment Upcoming Encounters Date Type Specialty Care Team Description 05/24/2019 Office Visit Nephrology Gia White MD [address] [place] [address] [phone] 06/04/2019 Home Visit [facility] Physician [address] [place] [address] [address] [phone] 06/12/2019 Home Visit [facility] Teddy Mccrary RN [address] [place] [address] [phone] 06/15/2019 Office Visit Cardiology Marjorie Powell PA-C [address] [place] [address] [phone] 06/29/2019 Pharmacy Pharmacy [facility] Jeramie [address] [place] [address] 07/10/2019 Office Visit Sleep Disorders Celsa Tafoya CRNP [address] [place] [address] [phone] 11/07/2019 Office Visit Family Medicine Kevin Whiteside DO [address] [place] [address] [phone] Health Maintenance Due Date Last Done Comments PAP SMEAR-EVERY 3 YRS,AGES 21-65 05/11/2016 05/11/2013, 03/01/2008, 10/19/2006, Additional history exists CKD PHOS USE SMARTSET 19656 12/29/201801/2018, 08/26/2009, 08/25/2009, Additional history exists Influenza Vaccine (FLU shot) (#1) 2019 06/12/2018, 06/12/2018, 07/14/2017, Additional history exists BREAST CANCER SCREENING DISCUSSION YEARLY AGES 40-75 06/23/2019 06/23/2018, 05/09/2015, 07/12/2014, Additional history exists DIABETES-HGBA1C EVERY 6 MONTHS 09/13/2019 03/14/2019, 09/27/2018, 05/01/2018, Additional history exists CKD GFR USE SMARTSET 67596 11/07/201905/07, 03/14/2019, 02/26/2019, Additional history exists DIABETES-FOOT EXAM 01/02/2020 01/01/2019, 0 12/29/2017, 10/21/2016, Additional history exists CKD HGB USE SMARTSET 85786 02/27/202002/26, 12/23/2018, 12/08/2018, Additional history exists DIABETES-URINE [...] on File Type Date Recorded Patient Emergency Room Specialist Expl anation Advanced Directive 08/22/2009 12:00 [...]
--- OUTSIDE RECORDS SUMMARY | 2023-06-01 05:43 | External Medical Summary | Summary of Care ---
Author Name Unknown Organization [facility] [address] Care Team Providers Care Men'S Garment Fitter Name Role Phone Kevin Whiteside Primary Care Provider Encounter Details Date Type Department Care Team Description 05/09/2019 Result Scan Unspecified Department <No scans attached> [...] Tab 5 01/12/2019 Active Vitamin D, Ergocalciferol, 43338 units CapsuleIndications:V itamin D deficiency Take one capsule by mouth once a week 13 Cap 0 01/13/2019 Active Blood Glucose Monitoring Suppl (Factory Logic ULTRA 2) w/Device KIT Use to test [...] in adult ([facility]),Hypoxemia,ELISSA (obstructive sleep apnea),HTN, goal below 140/80 [...] Dosing Unit 5 04/18/2019 Active Glucose Blood (GenSight BiologicsUCH ULTRA BLUE) STRP Check sugars 3-4 times daily 400 Strip 2 04/21/2019 Active Magnesium Oxide 400 (241.3 mg) Tablet Take 400 mg by mouth every other day. 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, NYHA class 1 and CKD stage 3 05/14/2019 Other atherosclerosis of [place] arteries of extremities, left leg 02/26/2019 [...] Office Visit Nephrology Gia White MD [address] [place] [address] [phone] 06/04/2019 Home Visit [facility] Rahulrachelelissa Saira, [facility] Home Energy Rater [address] [place] [address] [phone] 06/12/2019 Home Visit [facility] Teddy Mccrary RN [address] [place] [address] [phone] 06/15/2019 Office Visit Cardiology Marjorie Powell PA-C [address] [place] [address] [phone] 06/29/2019 Pharmacy Pharmacy [facility] [address] [place] [address] 07/10/2019 Office Visit Sleep Disorders Celsa Tafoya CRNP [address] [place] [address] [phone] 11/07/2019 Office Visit Family Medicine Kevin Whiteside DO [address] [place] [address] [phone] Health Maintenance Due Date Last Done Comments PAP SMEAR-EVERY 3 YRS,AGES 21-65 05/11/2016 05/11/2013, 03/01/2008, 10/19/2006, Additional history exists CKD PHOS USE SMARTSET 20327 12/29/2018 04/0 01/2018, 08/26/2009, 08/25/2009, Additional history exists Influenza Vaccine (FLU shot) (#1) 2019 06/12/2018, 06/12/2018, 07/14/2017, Additional history exists BREAST CANCER SCREENING DISCUSSION YEARLY AGES 40-75 06/23/2019 06/23/2018, 05/09/2015, 07/12/2014, Additional history exists DIABETES-HGBA1C EVERY 6 MONTHS 09/13/2019 03/14/2019, 09/27/2018, 05/01/2018, Additional history exists CKD GFR USE SMARTSET 48151 11/07/201905/07, 03/14/2019, 02/26/2019, Additional history exists DIABETES-FOOT EXAM 01/02/2020 01/01/2019, 0 12/29/2017, 10/21/2016, Additional history exists CKD HGB USE SMARTSET 10407 02/27/202002/26, 12/23/2018, 12/08/2018, Additional history exists DIABETES-URINE [...] Date/Time Associated Diagnosis Comments ECHOCARDIOLOGY SCANNED RESULT 05/09/2019 documented in this encounter Results * ECHOCARDIOLOGY SCANNED RESULT (05/09/2019) Specimen Narrative Performed At documented in this encounter Advance Directives Documents on File Type Date Recorded Patient Cup Trimming Machine Operator Expl anation Advanced Directive 08/22/2009 [...]
--- OUTSIDE RECORDS SUMMARY | 2023-06-01 05:43 | External Medical Summary | Summary of Care ---
Author Name Unknown Organization [place] [address] Care Team Providers Care Manager Pipeline Name Role Phone Kevin Whiteside DO Primary Care Provider Reason for Visit * Reason Comments Advice Encounter Details Date Type Department Care Team Description 05/18/2019 Telephone Family Practice [facility] [address] [place] [address] Kevin Whiteside, [address] [facility] [place] [address] Advice Allergies Active Allergy Reactions Severity Noted Date Comments Pollen 05/18/2019 Heparin 09/04/2009 Heparin Induced Thrombocytopenia Empagliflozin Other (Please comment) Medium 05/17/2018 3 yeast infections in 6 weeks after starting Morphine And Related 09/16/1997 Hallucinations Tetanus Toxoid Other (Please comment) 06/15/2011 Passed out documented as of this encounter (statuses as of 05/21/2019) Medications Medication Sig Dispensed Refills Start Date [...] Tab 5 01/12/2019 Active Vitamin D, Ergocalciferol, 78668 units CapsuleIndications:V itamin D deficiency Take one capsule by mouth once a week 13 Cap 0 01/13/2019 Active Blood Glucose Monitoring Suppl (Anam Mobile ULTRA 2) w/Device KIT Use to [...] (BMI) of 50.0 to 59.9 in adult ([facility]),Hypoxemia,ELISSA (obstructive sleep apnea),HTN, goal below [...] as of this encounter (statuses as of 05/21/2019) Active Problems Problem Noted Date Benign hypertensive [...] as of this encounter (statuses as of 05/21/2019) Resolved Problems Problem Noted Date Resolved Date [...] as of this encounter (statuses as of 05/21/2019) Immunizations Name Administration Dates Next Due Pneumococcal [...] Miscellaneous Notes * Telephone Encounter - Vera Rico RN - 05/21/2019 1:34 PM EDT Spoke to pt. States understanding. * Telephone Encounter - Kevin Whiteside DO - 05/21/2019 1:21 PM EDT Labs ordered, thank you * Telephone Encounter - Vera Rico RN - 05/18/2019 1:38 PM EDT Attempted to call pt. Pt is being seen by [facility] at home today. Requesting return call to check on symptoms. Pt has apt with nephrology on Tuesday. Dr. Whiteside is back on Tuesday. Will review and will add any lab work he wants to be done along with Nephology. * Telephone Encounter - Little Shaw OSA - 05/18/2019 9:44 AM EDT Patient recently seen after visit in hospital. Discussed Basic lab work and checking liver function. No orders for lab work in chart. Patient would like to get these labs done next week, please call patient when orders are placed. Thank you. documented in this encounter Plan of Treatment Upcoming Encounters Date Type Specialty Care Team Description 05/23/2019 Home Visit [facility] Teddy Mccrary RN [address] [place] [address] [phone] 05/24/2019 Office Visit Nephrology Gia White MD [address] [place] [address] [phone] 06/04/2019 Home Visit [facility] Computer Equipment Installer [address] [place] [address] [phone] 06/12/2019 Home Visit [facility] Teddy Mccrary RN [address] [place] [address] [phone] 06/15/2019 Office Visit [facility]iology [facility] Powell [facility]C [facility] [place] [address] [phone] 06/29/2019 Pharmacy [facility] [place] [address] 07/10/2019 Office Visit Sleep Disorders Celsa Tafoya CRNP [facility] [place] [address] [phone] 11/07/2019 Office Visit Family Medicine Kevin Whiteside DO [address] [place] [address] [phone] Scheduled Orders Name Type Priority Associated Diagnoses Orde r Schedule COMPR METAB PANEL Lab Routine HTN, goal below 130/80 Expected: 05/21/2019 (Approximate), Expires: 05/20/2020 ALBUMIN / CREATININE RATIO, URINE Lab Routine HTN, goal below 130/80 Expected: 05/21/2019 (Approximate), Expires: 05/20/2020 Health Maintenance Due Date Last Done Comments PAP SMEAR-EVERY 3 YRS,AGES 21-65 05/11/2016 05/11/2013, 03/01/2008, 10/19/2006, Additional history exists CKD PHOS USE SMARTSET 82051 12/29/2018 04/0 01/2018, 08/26/2009, 08/25/2009, Additional history exists Influenza Vaccine (FLU shot) (#1) 2019 06/12/2018, 06/12/2018, 07/14/2017, Additional history exists BREAST CANCER SCREENING DISCUSSION YEARLY AGES 40-75 06/23/2019 06/23/2018, 05/09/2015, 07/12/2014, Additional history exists DIABETES-HGBA1C EVERY 6 MONTHS 09/13/2019 03/14/2019, 09/27/2018, 05/01/2018, Additional history exists CKD GFR USE SMARTSET 37902 11/07/201905/07, 03/14/2019, 02/26/2019, Additional history exists DIABETES-FOOT EXAM 01/02/2020 01/01/2019, 0 12/29/2017, 10/21/2016, Additional history exists CKD HGB USE SMARTSET 67243 02/27/202002/26, 12/23/2018, 12/08/2018, Additional history exists DIABETES-URINE [...] encounter Visit Diagnoses Diagnosis HTN, goal below 130/80- Primary Unspecified essential hypertension documented in this encounter Advance Directives Documents on File Type Date Recorded Patient Arrt Technologist Expl anation Advanced Directive 08/22/2009 12:00 AM [...]
--- OUTSIDE RECORDS SUMMARY | 2023-06-01 05:43 | External Medical Summary | Summary of Care ---
Author Name Unknown Organization [place] [address] Care Team Providers Care Data Management Analyst Name Role Phone Kevin Whiteside Primary Care Provider Encounter Details Date Type Department Care Team Description 05/10/2019 Scan Encounter Unspecified Department <No scans attached> Allergies Active Allergy Reactions Severity Noted Date Comments Heparin 09/04/2009 Heparin Induced Thrombocytopenia Empagliflozin Other (Please comment) Medium 05/17/2018 3 yeast infections in 6 weeks after starting Morphine And Related 09/16/1997 Hallucinations Tetanus Toxoid Other (Please comment) 06/15/2011 Passed out documented as of this encounter (statuses as of 05/15/2019) Medications Medication Sig Dispensed Refills Start Date [...] Tab 5 01/12/2019 Active Vitamin D, Ergocalciferol, 59547 units CapsuleIndications: Vitamin D deficiency Take one capsule by mouth once a week 13 Cap 0 01/13/2019 Active Blood Glucose Monitoring Suppl (Corduro ULTRA 2) w/Device KIT Use to test BG values 1 Kit 0 01/26/2019 Active insulin aspart (NOVOLOG FLEXPEN) 100 UNIT/ML SOPN inject 25 units with breakfast, 20 units with lunch and 30 units with dinner plus sliding scale up to 150 units per day. 30 mL 4 01/26/2019 Active levothyroxine (LEVOXYL) 25 MCG TabletIndications:P [...] 200 Box Dosing Unit 11 02/26/2019 Active furosemide (LASIX) 40 MG TabletIndications:C hronic diastolic congestive heart failure (HCC) Take 1.5 Tabs by mouth 2 times a day. 270 Tab 3 03/07/2019 Active rOPINIRole (REQUIP) 2 MG TabletIndications:R estless legs syndrome Take 1 Tab by mouth at bedtime. 90 Tab 3 03/07/2019 Active clonazePAM (KLONOPIN) 0.5 MG TabletIndications:A nxiety state TAKE ONE TABLET BY MOUTH TWICE DAILY 60 Tab 2 03/14/2019 Active insulin aspart (NOVOLOG) 100 UNIT/ML injection Use in insulin pump up to 200 units daily 3 Vial 12 03/14/2019 Active Insulin Degludec (TRESIBA FLEXTOUCH) 200 UNIT/ML SOPNIndications:Typ e 2 diabetes mellitus with hemoglobin A1c goal of 7.0%-8.0% ([facility]),Uncontrolled type 2 diabetes mellitus with stage 3 chronic kidney disease, with long-term current use of insulin ([facility]) Inject up to 160 units subcutaneously once daily as directed 72 mL 3 03/22/2019 Active traZODone (DESYREL) 50 MG Tablet Take 1 Tab by mouth at bedtime. 30 Tab 5 04/04/2019 Active Semaglutide (OZEMPIC) 0.25 or 0.5 MG/DOSE SOPN Inject 0.25 mg once weekly for 2 weeks and then 0.50 mg weekly 1 Pre-filled Pen Syringe Dosing Unit 5 04/18/2019 Active Glucose Blood (ONETOUCH ULTRA BLUE) STRP Check sugars 3-4 times daily 400 Strip 2 04/21/2019 Active oxygen GASIndications:ELISSA (obstructive sleep apnea) 2 LPM bled through CPAP 11 cwp during all periods of sleep. 1 Each 0 04/24/2019 Active Ferrous Sulfate (IRON) 325 (65 Fe) MG TABS Take 1 tablet by mouth daily to every other day based on tolerance. Take with food, juice or vitamin C. 30 Tab 5 04/27/2019 Active Magnesium Oxide 400 (241.3 mg) Tablet Take 400 mg by mouth every other day. 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, NYHA class 1 and CKD stage 3 05/14/2019 Other atherosclerosis of [place] arteries of extremities, left leg 02/26/2019 Lumbar [...] Overview: ICD-10 update of inactive term [place] filter in place 08/19/2014 History of pulmonary [...] as of this encounter (statuses as of 05/15/2019) Resolved Problems Problem Noted Date Resolved Date [...] as of this encounter (statuses as of 05/15/2019) Immunizations Name Administration Dates Next Due Pneumococcal [...] Encounters Date Type Specialty Care Team Description 05/15/2019 Office Visit Family Medicine Kevin Whiteside DO [address] [place] [address] [phone] 05/18/2019 Pharmacy Pharmacy [facility] [address] [place] [address] 05/18/2019 [facility] Visit [facility] Teddy Mccrary RN [address] [place] [address] [phone] 05/21/2019 Office Visit Nephrology Gia White MD [address] [place] [address] [phone] 06/15/2019 Office Visit Cardiology Marjorie Powell PA-C [address] [place] [address] [phone] 07/10/2019 Office Visit Sleep Disorders Celsa Tafoya CRNP [address] [place] [address] [address] [phone] 11/07/2019 Office Visit Family Medicine Kevin Whiteside DO [address] [place] [address] [phone] Health Maintenance Due Date Last Done Comments PAP SMEAR-EVERY 3 YRS,AGES 21-65 05/11/2016 05/11/2013, 03/01/2008, 10/19/2006, Additional history exists CKD PHOS USE SMARTSET 73141 12/29/2018 04/0 01/2018, 08/26/2009, 08/25/2009, Additional history exists Influenza Vaccine (FLU shot) (#1) 2019 06/12/2018, 06/12/2018, 07/14/2017, Additional history exists BREAST CANCER SCREENING DISCUSSION YEARLY AGES 40-75 06/23/2019 06/23/2018, 05/09/2015, 07/12/2014, Additional history exists DIABETES-HGBA1C EVERY 6 MONTHS 09/13/2019 03/14/2019, 09/27/2018, 05/01/2018, Additional history exists CKD GFR USE SMARTSET 33990 11/07/201905/07, 03/14/2019, 02/26/2019, Additional history exists DIABETES-FOOT EXAM 01/02/2020 01/01/2019, 0 12/29/2017, 10/21/2016, Additional history exists CKD HGB USE SMARTSET 72783 02/27/202002/26, 12/23/2018, 12/08/2018, Additional history exists DIABETES-URINE [...] on File Type Date Recorded Patient Oracle Ebs Consultant Expl anation Advanced Directive 08/22/2009 12:00 [...]
--- OUTSIDE RECORDS SUMMARY | 2023-06-01 05:43 | External Medical Summary | Summary of Care ---
Author Name Unknown Organization [place] [address] Care Team Providers Care Clerk Manager Name Role Phone Kevin Whiteside Primary Care Provider Reason for Visit * Reason Comments [facility]: Maintenance Encounter Details Date Type Department Care Team Description 05/23/2019 Telephone [facility] [address] [facility] [place] [address] Brooke Jose, RN [address] [place] [address] [phone] [facility]: Maintenance Allergies Active Allergy [...] Tab 5 01/12/2019 Active Vitamin D, Ergocalciferol, 57802 units CapsuleIndications:V itamin D deficiency Take one capsule by mouth once a week 13 Cap 0 01/13/2019 Active Blood Glucose Monitoring Suppl (IsomarkTOUCH ULTRA 2) w/Device KIT Use to test [...] 50.0 to 59.9 in adult ([facility]),Hypoxemia,ELISSA (obstructive sleep apnea),HTN, goal below [...] CKD stage 3 05/14/2019 Other atherosclerosis of [place] arteries of extremities, left leg 02/26/2019 Lumbar [...] 10/14/2014 Overview: ICD-10 update of inactive term [place] filter in place 08/19/2014 History of pulmonary [...] Nephrology Gia White MD [address] [place] [address] [phone] 06/04/2019 Home Visit [facility] [place], [facility] Senior Sales Consultant [address] [place] [address] [address] [phone] 06/12/2019 Home Visit [facility] Teddy Mccrary RN [address] [place] [address] [address] [phone] 06/15/2019 Office Visit Cardiology Marjorie Powell PA-C [address] [place] [address] [phone] 06/29/2019 Pharmacy Pharmacy [facility] [place] [address] [place] [address] 07/10/2019 Office Visit Sleep Disorders Celsa Tafoya CRNP [address] [place] [address] [phone] 11/07/2019 Office Visit Family Medicine Kevin Whiteside DO [address] [place] [address] [phone] Health Maintenance Due Date Last Done Comments PAP SMEAR-EVERY 3 YRS,AGES 21-65 05/11/2016 05/11/2013, 03/01/2008, 10/19/2006, Additional history exists CKD PHOS USE SMARTSET 25307 12/29/2018 04/0 01/2018, 08/26/2009, 08/25/2009, Additional history exists Influenza Vaccine (FLU shot) (#1) 2019 06/12/2018, 06/12/2018, 07/14/2017, Additional history exists BREAST CANCER SCREENING DISCUSSION YEARLY AGES 40-75 06/23/2019 06/23/2018, 05/09/2015, 07/12/2014, Additional history exists DIABETES-HGBA1C EVERY 6 MONTHS 09/13/2019 03/14/2019, 09/27/2018, 05/01/2018, Additional history exists CKD GFR USE SMARTSET 39838 11/07/201905/07, 03/14/2019, 02/26/2019, Additional history exists DIABETES-FOOT EXAM 01/02/2020 01/01/2019, 0 12/29/2017, 10/21/2016, Additional history exists CKD HGB USE SMARTSET 80430 02/27/202002/26, 12/23/2018, 12/08/2018, Additional history exists DIABETES-URINE [...] Documents on File Type Date Recorded Patient Music Instructor Expl anation Advanced Directive 08/22/2009 12:00 [...]
--- OUTSIDE RECORDS SUMMARY | 2023-06-01 05:43 | External Medical Summary | Summary of Care ---
Author Name Unknown Organization [place] [address] Care Team Providers Care Shaper Hand Name Role Phone Kevin Whiteside DO [...] insulin ([facility]) Body mass index (BMI) of 50.0 to 59.9 in adult ([facility]) Chronic kidney disease (CKD) stage G3b/A3, moderately decreased glomerular filtration rate (GFR) between 30-44 mL/min/1.73 square meter and albuminuria creatinine ratio greater than 300 mg/g ([facility]) Kevin Whiteside DO [address] [address] Reason for Visit * Reason Comments Advice Encounter Details Date Type Department Care Team Description 05/07/2019 Telephone Family Practice [facility] [address] [address] Kevin Whiteside DO [address] [address] [phone] Advice Allergies Active Allergy Reactions Severity Noted Date Comments Heparin 09/04/2009 Heparin Induced Thrombocytopenia Empagliflozin Other (Please comment) Medium 05/17/2018 3 yeast infections in 6 weeks after starting Morphine And Related 09/16/1997 Hallucinations Tetanus Toxoid Other (Please comment) 06/15/2011 Passed out documented as of this encounter (statuses as of 05/14/2019) Medications Medication Sig Dispensed Refills Start Date [...] Tab 5 01/12/2019 Active Vitamin D, Ergocalciferol, 28589 units CapsuleIndications: Vitamin D deficiency Take one capsule by mouth once a week 13 Cap 0 01/13/2019 Active Blood Glucose Monitoring Suppl (GigaPan ULTRA 2) w/Device KIT Use to test [...] of 7.0%-8.0% ([facility]),Uncontrolled type 2 diabetes mellitus with stage 3 chronic kidney disease, with long-term current use of insulin ([facility]) Inject up to 160 units subcutaneously once [...] as of this encounter (statuses as of 05/14/2019) Active Problems Problem Noted Date 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 * Telephone Encounter - Izabela Crump LPN - 05/08/2019 2:[address] Whiteside's message to the patient. Pt stated wasn't currently interested in [facility]. Pt did speak over the phone with Dr. Whiteside to address a few questions. Dr. Whiteside would like to check up on pt on to see how she is feeling. * Telephone Encounter - Teri Cullen RN - 05/08/2019 2:19 PM EDT [place] Gia White MD * Telephone Encounter - Teri Cullen, LEXI - 05/08/2019 9:[address] White, pt has been scheduled with you on 05/21 when [place] [employer]. She is not able to get to [place] to see you. Is this ok? * Telephone Encounter - Vera Rico RN - 05/08/2019 8:46 AM EDT Left detailed message for pt to return call. * Telephone Encounter - Migdalia Whiteside OSA - 05/08/2019 8:23 AM EDT Return pt. Next opening is not till late July, will send to nephro to triage for sooner appt * Telephone Encounter - Kevin Whiteside DO - 05/08/2019 8:23 AM EDT Troponin higher than during her CHF exacerbation last year, in which she had a similar ELSIE (acute kidney injury) picture as well. Please touch bases with patient today to see how she if feeling. If she continues to feel poorly I would recommend proceeding to the hospital for more aggressive diuresis along with IV hydration and monitoring of renal function. [facility] would be an excellent choice for this patient as well - if amenable - could help prevent hospitalizations. * Telephone Encounter - Kevin Whiteside DO - 05/07/2019 4:05 PM EDT Please set up an appointment for the patient with nephrology CURT, worsening renal function/failure. Thank you documented in this encounter Plan of Treatment Upcoming Encounters Date Type Specialty Care Team Description 05/14/2019 Home Visit [facility] Afshin Dyer CRNP [address] [address] [phone] Uncontrolled type 2 diabetes mellitus with stage 3 chronic kidney disease, with long-term current use of insulin ([facility]; Type 2 diabetes mellitus with diabetic dermatitis, with long-term current use of insulin ([facility]); Gastroesophageal reflux disease with esophagitis; Mild episode of recurrent major depressive disorder ([facility]); 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, NYHA class 1 and CKD stage 3 ([facility]); Postsurgical hypothyroidism; Other atherosclerosis of [place] arteries of extremities, left leg ([facility]); Body mass index (BMI) of 50.0 to 59.9 in adult ([facility]) 05/15/2019 Office Visit Family Medicine Kevin Whiteside DO [address] [address] [phone] 05/18/2019 Pharmacy Pharmacy [facility] [address] [address] 05/18/2019 Home Visit [facility] Teddy Mccrary RN [address] [address] [phone] 05/21/2019 Office Visit Nephrology Gia White MD [address] [address] [phone] 06/15/2019 Office Visit Cardiology Marjorie Powell PA-C [address] [address] 07/10/2019 Office Visit Sleep Disorders Celsa Tafoya CRNP [address] [address] 11/07/2019 Office Visit Family Medicine Kevin Whiteside DO [address] [address] [phone] Scheduled Referrals Name Type Priority Associated Diagnoses Orde r Schedule NEPHROLOGY REFERRAL OP Referral Within 3 days (urgent) Uncontrolled type 2 diabetes mellitus with stage 3 chronic kidney disease, with long-term current use of insulin (HCC) Body mass index (BMI) of 50.0 to 59.9 in adult (HCC) Chronic kidney disease (CKD) stage G3b/A3, moderately decreased glomerular filtration rate (GFR) between 30-44 mL/min/1.73 square meter and albuminuria creatinine ratio greater than 300 mg/g (HCC) Ordered: 05/07/2019 Health Maintenance Due Date Last Done Comments PAP SMEAR-EVERY 3 YRS,AGES 21-65 05/11/2016 05/11/2013, 03/01/2008, 10/19/2006, Additional history exists CKD PHOS USE SMARTSET 67153 12/29/2018 0401/2018, 08/26/2009, 08/25/2009, Additional history exists Influenza Vaccine (FLU shot) (#1) 2019 06/12/2018, 06/12/2018, 07/14/2017, Additional history exists BREAST CANCER SCREENING DISCUSSION YEARLY AGES 40-75 06/23/2019 06/23/2018, 05/09/2015, 07/12/2014, Additional history exists DIABETES-HGBA1C EVERY 6 MONTHS 09/13/2019 03/14/2019, 09/27/2018, 05/01/2018, Additional history exists CKD GFR USE SMARTSET 62191 11/07/201905/07, 03/14/2019, 02/26/2019, Additional history exists DIABETES-FOOT EXAM 01/02/2020 01/01/2019, 0 12/29/2017, 10/21/2016, Additional history exists CKD HGB USE SMARTSET 84407 02/27/202002/26, 12/23/2018, 12/08/2018, Additional history exists DIABETES-URINE [...] long-term current use of insulin (HCC)- Primary Body mass index (BMI) of 50.0 to 59.9 in adult (HCC) Chronic kidney disease (CKD) stage G3b/A3, moderately decreased glomerular filtration rate (GFR) between 30-44 mL/min/1.73 square meter and albuminuria creatinine ratio greater than 300 mg/g (HCC) documented in this encounter Advance Directives Documents on File Type Date Recorded Patient Repulping Supervisor Expl anation Advanced Directive 08/22/2009 12:00 [...]
--- OUTSIDE RECORDS SUMMARY | 2023-06-01 05:43 | External Medical Summary | Summary of Care ---
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, NYHA class 1 and CKD stage 3 ([facility]) Allergies Active Allergy Reactions Severity [...] Tab 5 01/12/2019 Active Vitamin D, Ergocalciferol, 30407 units CapsuleIndications:V itamin D deficiency Take one capsule by mouth once a week 13 Cap 0 01/13/2019 Active Blood Glucose Monitoring Suppl (Veristorm ULTRA 2) w/Device KIT Use to test [...] CKD stage 3 05/14/2019 Other atherosclerosis of [place] arteries of extremities, left leg 02/26/2019 Lumbar [...] 10/14/2014 Overview: ICD-10 update of inactive term [place] filter in place 08/19/2014 History of pulmonary [...] 05/23/2019 1:42 PM EDT [facility] Work[employer] ROSA #3 Visit Date: 05/23/2019 Time: 1:43 [...] as ordered: Yes Patient Well Being: PHQ2/9: @[id number]@ Pt denies any depression or anxiety. SNP [...] to mailboxes Patient Needs to Remember: Call [facility] with any red flags or new concerns [...] [id number] 06/04/2019 [facility] Print Project Manager [address] [address] [phone] 06/12/2019 Home Visit [facility] Teddy Mccrary, RN [address] [address] [phone] 06/15/2019 Office Visit Cardiology Marjorie Powell PA-C [address] [address] [phone] 06/29/2019 Pharmacy Pharmacy [facility] [address] [address] 07/10/2019 Office Visit Sleep Disorders Celsa Tafoya CRNP [address] [address] [phone] 11/07/2019 Office Visit Family Medicine Kevin Whiteside DO [address] [address] [phone] Health Maintenance Due Date Last Done Comments PAP SMEAR-EVERY 3 YRS,AGES 21-65 05/11/2016 05/11/2013, 03/01/2008, 10/19/2006, Additional history exists CKD PHOS USE SMARTSET 07597 12/29/2018 04/0 01/2018, 08/26/2009, 08/25/2009, Additional history exists Influenza Vaccine (FLU shot) (#1) 2019 06/12/2018, 06/12/2018, 07/14/2017, Additional history exists BREAST CANCER SCREENING DISCUSSION YEARLY AGES 40-75 06/23/2019 06/23/2018, 05/09/2015, 07/12/2014, Additional history exists DIABETES-HGBA1C EVERY 6 MONTHS 09/13/2019 03/14/2019, 09/27/2018, 05/01/2018, Additional history exists CKD GFR USE SMARTSET 08134 11/07/201905/07, 03/14/2019, 02/26/2019, Additional history exists DIABETES-FOOT EXAM 01/02/2020 01/01/2019, 0 12/29/2017, 10/21/2016, Additional history exists CKD HGB USE SMARTSET 49588 02/27/202002/26, 12/23/2018, 12/08/2018, Additional history exists DIABETES-URINE [...] Documents on File Type Date Recorded Patient Ciaio Lumite Injector Expl anation Advanced Directive 08/22/2009 12:00 AM [...]
--- OUTSIDE RECORDS SUMMARY | 2023-06-01 05:43 | External Medical Summary | Summary of Care ---
Author Name Unknown Organization [place] [address] Care [address] Administrator Name Role Phone eKvin Whiteside Primary Care Provider Reason for Visit * Reason Comments [facility]: Enrollment Encounter Details Date Type Department Care Team Description 05/14/2019 Home Visit [facility] [address] [facility] [address] [address] Af[facility]in Dyer CRNP [address] [facility] [address] [phone] Uncontrolled type 2 diabetes mellitus with stage 3 chronic kidney disease, with long-term current use of insulin ([facility])*; Type 2 diabetes mellitus with diabetic dermatitis, with long-term current use of insulin ([facility]); Gastroesophageal reflux disease with esophagitis; Mild episode of recurrent major depressive disorder ([facility]); 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, NYHA class 1 and CKD stage 3 ([facility]); Postsurgical hypothyroidism; Other atherosclerosis of [place] arteries of extremities, left leg ([facility]); Body mass index (BMI) of 50.0 to 59.9 in adult ([facility]) Allergies Active Allergy Reactions Severity [...] Tab 5 01/12/2019 Active Vitamin D, Ergocalciferol, 70972 units CapsuleIndications: Vitamin D deficiency Take one capsule by mouth once a week 13 Cap 0 01/13/2019 Active Blood Glucose Monitoring Suppl (Meteo-Logic ULTRA 2) w/Device KIT Use to test [...] with hemoglobin A1c goal of 7.0%-8.0% ([facility]),Uncontrolled type 2 diabetes mellitus with stage 3 chronic kidney disease, with long-term current use of insulin ([facility]) Inject up to 160 units subcutaneously once [...] CKD stage 3 05/14/2019 Other atherosclerosis of [place] arteries of extremities, left leg 02/26/2019 Lumbar [...] Sign Reading Time Taken Comments Blood Pressure 136/68 05/14/2019 11:45 AM EDT Pulse 83 05/14/2019 11:45 AM EDT Temperature - - Respiratory Rate 18 05/14/2019 11:45 AM EDT Oxygen Saturation 98% 05/14/2019 11:45 AM EDT Inhaled Oxygen Concentration - - Weight - - Height - - Body Mass Index - - documented in this encounter Progress Notes * Afshin Dyer CRNP - 05/14/2019 11:33 AM EDT Subjective TCO Stephanie Camp is a 64 year old female. Chief Complaint Patient presents with [facility]: Enrollment HPI: Was discharged from the hospital for fluid overload and some dehydration. Starting to feel a little better. Uses 02 when she is active. Using C pap as prescribed. Weights have been stable. BSG'shave been running good, using insulin insulin pump, followed by MTM. 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 Ferrous Sulfate (IRON) 325 (65 Fe) MG TABS Take 1 tablet by mouth daily to every other day based ontolerance. Take with food, juice or vitamin C. (Patient not taking: Reported on 05/07/2019) 30 Tab 5 oxygen GAS 2 LPM bled through CPAP 11 cwp during all periods of sleep. 1 Each 0 Glucose Blood (ONETOUCH ULTRA BLUE) STRP Check sugars 3-4 times daily 400 Strip 2 Semaglutide (OZEMPIC) 0.25 or 0.5 MG/DOSE SOPN Inject 0.25 mg once weekly for 2 weeks and then 0.50mg weekly 1 Pre-filled Pen Syringe Dosing Unit 5 traZODone (DESYREL) 50 MG Tablet Take 1 Tab by mouth at bedtime. 30 Tab 5 Insulin Degludec (TRESIBA FLEXTOUCH) 200 UNIT/ML SOPN Inject up to 160 units subcutaneously once daily as directed (Patient not taking: Reported on 05/03/2019) 72 mL 3 clonazePAM (KLONOPIN) 0.5 MG Tablet TAKE ONE TABLET BY MOUTH TWICE DAILY 60 Tab 2 insulin aspart (NOVOLOG) 100 UNIT/ML injection Use in insulin pump up to 200 units daily 3 Vial 12 furosemide (LASIX) 40 MG Tablet Take 1.5 Tabs by mouth 2 times a day. 270 Tab 3 rOPINIRole (REQUIP) 2 MG Tablet [...] to test BG values 1 Kit 0 insulin aspart (NOVOLOG FLEXPEN) 100 UNIT/ML SOPN inject 25 units with breakfast, 20 units with lunch and 30 units with dinner plus sliding scale up to 150 units per day. (Patient not taking: Reported on 05/03/2019) 30 mL 4 Vitamin D, Ergocalciferol, 28359 units Capsule Take one capsule by mouth [...] comment) Passed out Review of Systems Constitutional: Negative. Eyes: Negative. Respiratory: Positive for shortness of breath. Cardiovascular: Positive for leg swelling. Gastrointestinal: Negative. Genitourinary: Negative. Musculoskeletal: Positive for arthralgias. Skin: Negative. Neurological: Negative. Psychiatric/Behavioral: Negative. Objective BP 136/68 | Pulse 83 | Resp 18 | SaO2 98% | LMP 03/11/2003 Physical Exam Constitutional: She is oriented to person, place, and time. Eyes: Pupils are equal, round, and reactive to light. Neck: No hepatojugular reflux present. Cardiovascular: Normal rate and regular rhythm. Murmur heard. Pulmonary/Chest: Effort normal and breath sounds normal. Neurological: She is alert and oriented to person, place, and time. GCS eye subscore is 4. GCS verbal subscore is 5. GCS motor subscore is 6. Skin: Skin is warm, dry and intact. Psychiatric: She has a normal mood and affect. Her speech is normal and behavior is normal. Judgment and thought content normal. Cognition and memory are normal. ASSESSMENT/PLAN: Uncontrolled type 2 diabetes mellitus with stage 3 chronic kidney disease, with long-term current use of insulin ([facility]) (Primary) 1. Insulin as prescribed. Type 2 diabetes mellitus with diabetic dermatitis, with long-term current use of insulin ([facility]) 1. Insulin as prescribed. Gastroesophageal reflux disease with esophagitis 1. Prilosec as prescribed. Mild episode of recurrent major depressive disorder ([facility]) 1. Cymbalta as prescribed. 2. Nortriptyline as prescribed. 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 Daily weights 2. Spironolactone as prescribed. 3. Lasix as prescribed. 4. Metoprolol as prescribed. Postsurgical hypothyroidism 1. Levoxyl as prescribed. Other atherosclerosis of lime arteries of extremities, left leg ([facility]) 1. Exercise as tolerated 2. Low fat diet. Body mass index (BMI) of 50.0 to 59.9 in adult ([facility]) 1. Exercise as tolerated TATIANA Coronado documented in this encounter Plan of Treatment Upcoming Encounters Date Type Specialty Care Team Description 05/15/2019 Office Visit Family Medicine Kevin Whiteside DO [address] [address] [phone] 05/18/2019 Pharmacy Pharmacy [facility] Ord[facility] [address] [address] 05/18/2019 [facility] Visit [facility] Teddy Mccrary RN [address] [address] [phone] 05/21/2019 Office Visit Nephrology Gia White MD [address] [facility] [address] [address] 06/15/2019 Office Visit Cardiology Marjorie Powell PA-C [address] [address] 07/10/2019 Office Visit Sleep Disorders Celsa Tafoya CRNP [address] [address] 11/07/2019 Office Visit Family Medicine Kevin Whiteside DO [address] [address] Health Maintenance Due Date Last Done Comments PAP SMEAR-EVERY 3 YRS,AGES 21-65 05/11/2016 05/11/2013, 03/01/2008, 10/19/2006, Additional history exists CKD PHOS USE SMARTSET 28272 12/29/2018 04/0 01/2018, 08/26/2009, 08/25/2009, Additional history exists Influenza Vaccine (FLU shot) (#1) 2019 06/12/2018, 06/12/2018, 07/14/2017, Additional history exists BREAST CANCER SCREENING DISCUSSION YEARLY AGES 40-75 06/23/2019 06/23/2018, 05/09/2015, 07/12/2014, Additional history exists DIABETES-HGBA1C EVERY 6 MONTHS 09/13/2019 03/14/2019, 09/27/2018, 05/01/2018, Additional history exists CKD GFR USE SMARTSET 66495 11/07/201905/07, 03/14/2019, 02/26/2019, Additional history exists DIABETES-FOOT EXAM 01/02/2020 01/01/2019, 0 12/29/2017, 10/21/2016, Additional history exists CKD HGB USE SMARTSET 63068 02/27/202002/26, 12/23/2018, 12/08/2018, Additional history exists DIABETES-URINE [...] (HCC)- Primary Type 2 diabetes mellitus with diabetic dermatitis, with long-term current use of insulin (HCC) Gastroesophageal reflux disease with esophagitis Mild episode of recurrent major depressive disorder (HCC) 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
--- OUTSIDE RECORDS SUMMARY | 2023-06-01 05:43 | External Medical Summary | Summary of Care ---
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, NYHA class 1 and CKD stage 3 ([facility]); Chronic diastolic congestive heart failure (HCC); HTN, goal below 130/80; Body mass index (BMI) of 50.0 to 59.9 in adult ([facility]); Type 2 diabetes mellitus with hemoglobin A1c goal of 7.0%-8.0% ([facility]); Uncontrolled type 2 diabetes mellitus with stage 3 chronic kidney disease, with long-term current use of insulin ([facility]); Dyslipidemia; Mild episode of recurrent major depressive disorder ([facility]); ELISSA (obstructive sleep apnea) Allergies Active Allergy [...] NEEDED FOR MUSCLE SPASM 90 Tab 2 08/01/20 18 Active levothyroxine (LEVOXYL) 200 MCG TabletIndications: Postsurgical hypothyroidism TAKE ONE TABLET BY MOUTH ONE TIME DAILY at least 30 minutes prior to breakfast or other meds 90 Tab 5 08/01/20 18 Active Nortriptyline HCl (PAMELOR) 50 MG CapsuleIndications :Fibromyalgia Take 1 Cap by mouth at bedtime. 90 Cap 5 08/01/20 18 Active ONETOUCH DELICA LANCETS 33G MISC Check blood sugars 3-4 times daily 180 Each 5 08/01/20 18 Active Glucose Blood (ACCU-CHEK HARRIS PLUS) STRP Test sugar 3-4 times a day. 400 Strip 3 08/30/20 18 Active ACCU-CHEK SOFTCLIX LANCETS MISC Test sugar 3-4 times a day. Ok to substitute Fastclix lancets, if needed. 400 Box Dosing Unit 3 08/30/20 18 Active DULoxetine (CYMBALTA) 60 MG CPEPIndications:Fi bromyalgia,Moderat e episode of recurrent major depressive disorder (HCC),Primary osteoarthritis of both knees Take 1 Cap by mouth daily. Do not cut, crush or chew 90 Cap 5 12/19/19 19 Active gabapentin (NEURONTIN) 300 MG CapsuleIndications :Type 2 diabetes mellitus with hemoglobin A1c goal of 7.0%-8.0% ([facility]) Take 1 Cap by mouth 3 times a day. 270 Cap 5 01/02/20 19 Active spironolactone (ALDACTONE) 25 MG Tablet Take 0.5 Tabs by mouth daily. 45 Tab 5 01/13/20 19 Active Vitamin D, Ergocalciferol, 87794 units CapsuleIndications :Vitamin D deficiency Take one capsule by mouth once a week 13 Cap 0 01/14/20 19 Active Blood Glucose Monitoring Suppl ([employer] ULTRA 2) w/Device KIT Use to test BG values 1 Kit 0 01/27/20 19 Active levothyroxine (LEVOXYL) 25 MCG TabletIndications: Postsurgical hypothyroidism TAKE ONE TABLET BY MOUTH IN THE MORNING AT LEAST 30 MINUTES PRIOR TO BREAKFAST OR OTHER MEDS 30 Tab 5 02/03/20 19 Active metoprolol tartrate (LOPRESSOR) 25 MG TabletIndications: HTN, goal below 130/80,Acute diastolic congestive heart failure (HCC),Body mass index (BMI) of 50.0 to 59.9 in adult (HCC),Hypoxemia,OS A (obstructive sleep apnea),HTN, goal below 140/80 Take 0.5 Tabs by mouth 2 times a day. 90 Tab 3 02/14/20 19 Active clobetasol propionate (TEMOVATE) 0.05 % ointmentIndication s:Irritant contact dermatitis, unspecified trigger Apply topically to affected area 2 times a day. To affected area for up to two weeks. 60 g 1 02/14/20 19 Active Insulin Pen Needle (BD PEN NEEDLE SHORT U/F) 31G X 8 MM Use 5 times daily with insulin 200 Box Dosing Unit 11 02/27/20 19 Active rOPINIRole (REQUIP) 2 MG TabletIndications: Restless legs syndrome Take 1 Tab by mouth at bedtime. 90 Tab 3 03/07/20 19 Active clonazePAM (KLONOPIN) 0.5 MG TabletIndications: Anxiety state TAKE ONE TABLET BY MOUTH TWICE DAILY 60 Tab 2 03/14/20 19 Active insulin aspart (NOVOLOG) 100 UNIT/ML injection Use in insulin pump up to 200 units daily 3 Vial 12 03/14/20 19 Active traZODone (DESYREL) 50 MG Tablet Take 1 Tab by mouth at bedtime. 30 Tab 5 04/04/20 19 Active Semaglutide (OZEMPIC) 0.25 or 0.5 MG/DOSE SOPN Inject 0.25 mg once weekly for 2 weeks and then 0.50 mg weekly 1 Pre-filled Pen Syringe Dosing Unit 5 04/18/20 19 Active Glucose Blood (ONETOUCH ULTRA BLUE) STRP Check sugars 3-4 times daily 400 Strip 2 04/21/20 19 Active Magnesium Oxide 400 (241.3 mg) Tablet Take 400 mg by mouth every other day. 0 04/12/20 19 Active traMADol (ULTRAM) 50 MG Tablet 0 05/10/20 19 Active furosemide (LASIX) 40 MG TabletIndications: Chronic diastolic congestive heart failure (HCC) Take 1 Tab by mouth 2 times a day. 180 Tab 3 05/15/20 19 Active oxygen GASIndications:ELISSA (obstructive sleep apnea) 2 L/min(Oxygen). 2 LPM bled through CPAP 11 cwp during all periods of sleep. 0 05/15/20 19 Active insulin aspart (NOVOLOG FLEXPEN) 100 UNIT/ML SOPN inject 25 units with breakfast, 20 units with lunch and 30 units with dinner plus sliding scale up to 150 units per day. 30 mL 4 01/27/20 19 019 Discontinued furosemide (LASIX) 40 MG TabletIndications: Chronic diastolic congestive heart failure (HCC) Take 1.5 Tabs by mouth 2 times a day. 270 Tab 3 03/07/20 19 019 Discontinued Insulin Degludec (TRESIBA FLEXTOUCH) 200 UNIT/ML SOPNIndications:Ty pe 2 diabetes mellitus with hemoglobin A1c goal of 7.0%-8.0% ([facility]),Uncontrolled type 2 diabetes mellitus with stage 3 chronic kidney disease, with long-term current use of insulin ([facility]) Inject up to 160 units subcutaneously once daily as directed 72 mL 3 03/22/20 19 019 Discontinued oxygen GASIndications:ELISSA (obstructive sleep apnea) 2 LPM bled through CPAP 11 cwp during all periods of sleep. 1 Each 0 04/24/20 19 019 Discontinued Ferrous Sulfate (IRON) 325 (65 Fe) MG TABS Take 1 tablet by mouth daily to every other day based on tolerance. Take with food, juice or vitamin C. 30 Tab 5 04/27/20 19 019 Discontinued documented as of this encounter (statuses as of 05/15/2019) Active Problems Problem Noted Date 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, NYHA class 1 and CKD stage 3 05/14/2019 Other atherosclerosis of [place] arteries of extremities, left leg 02/26/2019 Lumbar [...] Sign Reading Time Taken Comments Blood Pressure 112/62 05/15/2019 11:03 AM EDT Pulse 94 05/15/2019 11:03 AM EDT Temperature 36.9 C (98.4 F) 05/15/2019 11:03 AM E DT Respiratory Rate 26 05/15/2019 11:03 AM EDT Oxygen Saturation 94% 05/15/2019 11:03 AM EDT on 2L via NC Inhaled Oxygen Concentration - - Weight 152 kg (335 lb) 05/15/2019 11:03 AM EDT Height - - Body Mass Index 55.75 01/23/2019 3:50 PM EDT documented in this encounter Patient Instructions * Patient Instructions* Kevin Whiteside, - 05/15/2019 11:08 AM EDT Taking Medicine Safely Medicine is given to help treat or prevent illness. But if you don't take it correctly, it might not help. It might even harm you. Your doctor or pharmacist can help you learn the right way to take your medicine. Listed below are some tips to help you take medicine safely. Safety Tips Have a routine for taking each medicine. Make it part of something you do each day, such as brushing your teeth or eating a meal. When you go to the hospital or your doctor's office, bring all your current medicines in their original boxes or bottles. If you can't do that, bring an up-to-date list of your medicines. Do not stop taking a prescription medicine unless your doctor tells you to. Doing so could make your condition worse. Do not share medicines. Let your doctor and pharmacist know of any allergies you have. Taking prescription medicines with alcohol, street drugs, herbs, supplements, or even some svfz-bwp-sftzaaa medicines can be harmful. Talk to your doctor or pharmacist before using any of these things while taking a prescription medicine. When filling your prescriptions, try using the same pharmacy for all your medicines. If not, let the pharmacist know what medicines you are already on. Keep medicines out of the reach of children and pets. Do not use medicine that has or that doesn't look or smell right. Get rid of it properly. To find out the right way to get rid of medicine: Call your [facility] or [facility]'s household trash and recycling service and ask if a drug take-back program is available in your community. Call your local pharmacy and ask the right way to get rid of the medicine. Go to http://www.fda.gov/ForConsumers/ConsumerUpdates/xof703253 to learn how to get rid of medicines safely. Using Generic Medicines Medicines have brand names and generic (chemical) names. When a medicine is first made, it is sold only under its brand name. Later, it can be made and sold as a generic. Generic medicines cost less than brand-name medicines and most work just as well. Most people can use the generic medicine instead of the brand-name medicine, unless their doctor says otherwise. 2607-5544 [facility], [address] [place] [address]. All rights reserved. This information is not intended as a substitute for professional medical care. Always follow your healthcare professional's instructions. Coping with Your Diagnosis of a Chronic Health Condition If you have a chronic health condition, you have a problem that may not go away over time. Heart disease, asthma, arthritis, and diabetes are just a few of the chronic conditions that exist. Right now, these conditions have no known cure. But you can take an active role in managing your health. Coping with Your Diagnosis If you've just learned about your health condition, you may be angry, depressed, or afraid. Or you might feel relieved just to know what's wrong. Even if you've known about your health problem for a while, adjusting to it can be hard. But learning about your condition can help you cope. Look for books at your local library. If you have access to a computer, check the Internet. Or contact a group that focuses on your specific problem. Accepting Change Change is hard for most people. Yet right now you may be facing many changes. What you eat or the way you work may change. Your moods, and even your symptoms, might vary from day to day. Although it isn't easy, learning to accept change can help you feel more in control. Taking Control Feeling you have control can make living with your condition easier. Discuss treatment options withyour health care provider. The more you know, the more active you can be in your care. Moving Forward You may wonder whether you will be able to do the things you've always done. That depends on your age, the condition you have, and your goals. To make the most of each day, try to build caring relationships, be active, and eat right. Also, do your best to keep a sense of humor. [facility], [address] [place] [address]. All rights reserved. This information is not intended as a substitute for professional medical care. Always follow your healthcare professional's instructions. Taking an Active Role in Your Medicines Take the time to learn about your medicine. For instance, why are you taking it? What does it do? Work with your doctor or other health care providers to get the answers you need. Talk to your pharmacist about how to take each medicine, and ask for a fact sheet on each one. Ask Questions About Your Medicine What is the name of the medicine? Why do I need to take it? When should I take it? How should I take it: with water? with food? on an empty stomach? How much do I take? What do I do if I miss a dose? What side effects could it cause and which ones should I call the doctor about? Are there any foods or medicines I should avoid while taking this medicine? Keeping track of your medications? Name of medicine: Taken for: Dose: Time(s) to take it: Take an Active Role Fill all your prescriptions at the same pharmacy. This keeps your medicine history in one place. Talk to the pharmacist. Make sure you understand how to take each medicine. Ask for a fact sheet about each one. Tell your doctor and pharmacist about all the prescription and ojpc-fng-dzziszy medicines you take.This includes vitamins and herbal remedies. Tell your doctor and pharmacist if you have any medical conditions or allergies to any medicine or food, or if you are or . Keep a list of all your medicines. Use the sample to the right as a guide for the type of information needed. [facility], [address] [place] [address]. All rights reserved. This information is not intended as a substitute for professional medical care. Always follow your healthcare professional's instructions. documented in this encounter Progress Notes * Kevin Whiteside DO - 05/15/2019 11:07 AM EDT Nursing Notes: Izabela L CHUYITA Crump [birth year] 1106 Signed The patient has been properly identified by confirmation of name and date of . Chief Complaint Patient presents with Hospital Follow-Up fever , chills, since last night ASSESSMENT/PLAN: 1. Hospital discharge follow-up Presents in follow-up from hospitalization with the patient was treated for renal insufficiency andCHF. Patient had increasing creatinine levels indicating acute on chronic kidney failure. She has had trouble balancing between adequate diuresis and not over stressing her renal balance. Has follow-up scheduled with nephrology, overall from a fluid standpoint seems to be stable. - DISCH MED RECON CUR MED LIS 2. 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 Will be seeing Nephrology as scheduled. 3. Chronic diastolic congestive heart failure ([facility]) Was put back on furosemide 40 mg twice daily and spironolactone. Will continue this recommendation and continue to monitor her renal function. - furosemide (LASIX) 40 MG Tablet; Take 1 Tab by mouth 2 times a day. Dispense: 180 Tab; Refill: 3 4. HTN, goal below 130/80 Stable today, blood pressure adequately controlled on current medications. 5. Body mass index (BMI) of 50.0 to 59.9 in adult ([facility]) Provided education. 6. Type 2 diabetes mellitus with hemoglobin A1c goal of 7.0%-8.0% ([facility]) Continuing to monitor hemoglobin A1c, patient is compliant with her medications, using the insulin pump with with Ozempic. 7. Uncontrolled type 2 diabetes mellitus with stage 3 chronic kidney disease, with long-term current use of insulin ([facility]) As above 8. Dyslipidemia Continue to monitor and treat as needed. 9. Mild episode of recurrent major depressive disorder ([facility]) Having worsening of her depression with her frequent hospitalizations and declining kidney functionand overall complexity of medical care. Hoping that through visits with [facility] we can help keep the patient more optimized and reduce hospitalizations. Patient denies suicidal or homicidal ideation. 10. ELISSA (obstructive sleep apnea) Using CPAP, continue - oxygen GAS; 2 L/min(Oxygen). 2 LPM bled through CPAP 11 cwp during all periods of sleep. HPI: Stephanie Camp is a 64 year old female who: Patient presents today in follow-up from her most recent hospitalization. Patient had declining renal function in the setting of chronic kidney failure and was having trouble diuresing well not over volume jorge herself. Medications were tweaked slightly while she was an inpatient but overallthings were not changed very much. ROS: CONSTITUTIONAL: no weight loss, no fevers, no sweats HEENT: no change in vision or hearing, no congestion, no sore throat CARDIAC: no chest pain, no palpitations, no orthopnea, no AVENDAÑO, no syncope RESP: no wheezing and no SOB, +AVENDAÑO (chronic) GI: no pain, no NVDC, no melena/hematochezia SKIN: no rashes MSK: +significant joint or muscle pain and no swelling : no dysuria or discharge NEURO: no memory loss, no numbness PSYCH: no SI/HI PHYSICAL EXAMINATION: BP 112/62 | Pulse 94 | Temp (Src) 98.4 (Tympanic) | Resp 26 | Wt 335 lbs (151.955kg) | BMI 55.75 kg/m | BSA 2.64 m | SaO2 94[on 2L via NC[% | LMP 03/11/2003 GENERAL: obese, alert, healthy, mild distress, well nourished and well developed HEAD: [...] LUNGS: clear to auscultation bilaterally. No wheezing/rales/rhonchi SKIN: skin color, texture, turgor are normal, + venous stasis dermatitis EXTREMITIES: no joint deformities, effusion, or inflammation, +edema, no clubbing, no cyanosis, Full ROM, Pulses Intact, Strength equal bilaterally NEURO: alert & oriented x 3 with fluent speech, no focal motor/sensory deficits, gait normal, reflexes normal and symmetric MSK:markedly reduced exercise capacity Patient Active Problem List Diagnosis Code Primary [...] A1c goal of 7.0%-8.0% ([facility]) E11.9 Fibromyalgia M79.7 Abnormality of gait R26.9 [...] F33.0 Lumbar radiculopathy M54.16 Other atherosclerosis of [place] arteries of extremities, left leg ([facility]) I70.292 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, NYHA class 1 and CKD stage 3 ([facility]) I13.0, I50.30, N18.3 Past Medical History: Diagnosis Date ELSIE (acute kidney injury) ([facility]) 06/12/2018 Allergic rhinitis due to other allergen Backache Diverticulosis of colon 01/28/06 DM type 2, not at goal ([facility]) ELLIE (generalized anxiety disorder) 09/13/2009 Goiter Frank filter in place 08/19/2014 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[facility]) 08/22/2009 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HCC) 06/12/2018 History of pulmonary embolus (PE) 07/16/2014 HTN, goal below 140/90 Impetigo 09/27/2018 Obesity, BMI not known Perforation of intestine ([facility]) 1996 COLON -- 1996 Pneumonia in aspergillosis(484.6) 09/14/2009 Spontaneous pneumothorax 09/14/2009 Statin intolerance 07/16/2014 Type 2 diabetes mellitus with hemoglobin A1c goal of 7.0%-8.0% (HCC) 10/14/2014 ICD-10 update of inactive term Vaginal karmen 07/13/2018 Past Surgical History: Procedure Laterality Date ARTHROPLASTY KNEE TOTAL Right 07/24/14 R COLONOSCOPY, DIAGNOSTIC (RECTUM) 02/18/2016 normal, repeat 10 yrs/[facility] COLONOSCOPY, GI REFERRAL OP 01/28/06 diverticulosis--repeat 10 years INCISION OF [place], PLANNED 06/03/2011 TRACHEOSTOMY PLANNED performed by DANNY HOLDER at [facility] KNEE ARTHROSCOPY/DEBRIDEMENT 07/[address] PERMANENT GASTROSTOMY TUBE 09/06/09 GASTROSTOMY WITH CONSTUCTION GASTRIC TUBE performed by AMADOU NUNEZ at [facility] REMOVAL OF THYROID GLAND 06/15/2011 THYROIDECTOMY INCLUDING SUBSTERNAL THYROID CERVICAL APPROACH performed by DANNY HOLDER at [facility] REMOVE GALLBLADDER 09/06/09 CHOLECYSTECTOMY performed by AMADOU NUNEZ at [facility] REPAIR RECURRENT INCISIONAL HERNIA 1998 REVISION OF COLOSTOMY, SIMPLE 1998 SUTURE, LARGE INTESTINE W/COLOSTOMY 1996 perforation R colon with colostomy VENA CAVA FILTER/LIGATION/CLIP 08/19/09 Kerby filter placement through the right femoral 08/19/[address] Lerma at [facility] Current Outpatient Medications Medication Sig Dispense Refill [...] 30 Tab 5 Blood Glucose Monitoring Suppl ([employer] ULTRA 2) w/Device KIT Use to test BG values 1 Kit 0 Vitamin D, Ergocalciferol, 20966 units Capsule Take one capsule by mouth [...] (Please comment) Passed out Kevin Whiteside DO [facility] [address] [place] [address] (This note was completed using the dictation program Fluency Direct. As such, there may be misspellings, word substitutions, or other variations that should not change the essence of the clinical content of this encounter note.If there is need for further clarification, please direct questions to the provider listed above.) documented in this encounter Nursing Notes * Izabela Crump LPN - 05/15/2019 11:02 AM EDT The patient has been properly identified by confirmation of name and date of . Chief Complaint Patient presents with Hospital Follow-Up fever , chills, since last night documented in this encounter Plan of Treatment Upcoming Encounters Date Type Specialty Care Team Description 05/18/2019 Pharmacy Pharmacy [facility] [address] [address] 05/18/2019 [facility] Teddy Mccrary RN [address] [address] [phone] 05/21/2019 Office Visit Nephrology Gia White MD [address] [address] [phone] 06/15/2019 Office Visit Cardiology Marjorie Powell, EVIN [address] [place] [address] 07/10/2019 Office Visit Sleep Disorders Celsa Tafoya CRNP [address] [place] [address] 11/07/2019 Office Visit Family Medicine Kevin Whiteside DO [address] [place] [address] [phone] Health Maintenance Due Date Last Done Comments PAP SMEAR-EVERY 3 YRS,AGES 21-65 05/11/2016 05/11/2013, 03/01/2008, 10/19/2006, Additional history exists CKD PHOS USE SMARTSET 52175 12/29/2018 04/0 01/2018, 08/26/2009, 08/25/2009, Additional history exists Influenza Vaccine (FLU shot) (#1) 2019 06/12/2018, 06/12/2018, 07/14/2017, Additional history exists BREAST CANCER SCREENING DISCUSSION YEARLY AGES 40-75 06/23/2019 06/23/2018, 05/09/2015, 07/12/2014, Additional history exists DIABETES-HGBA1C EVERY 6 MONTHS 09/13/2019 03/14/2019, 09/27/2018, 05/01/2018, Additional history exists CKD GFR USE SMARTSET 84859 11/07/201905/07, 03/14/2019, 02/26/2019, Additional history exists DIABETES-FOOT EXAM 01/02/2020 01/01/2019, 0 12/29/2017, 10/21/2016, Additional history exists CKD HGB USE SMARTSET 97300 02/27/202002/26, 12/23/2018, 12/08/2018, Additional history exists DIABETES-URINE [...] Hospital discharge follow-up- Primary Other follow-up examination 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, NYHA class 1 and CKD stage 3 (HCC) Chronic diastolic congestive heart failure (HCC) Chronic diastolic heart failure HTN, goal below 130/80 Unspecified essential hypertension Body mass index (BMI) of 50.0 to 59.9 in adult (HCC) Type 2 diabetes mellitus with hemoglobin A1c goal of 7.0%-8.0% (HCC) Uncontrolled type 2 diabetes mellitus with stage 3 chronic kidney disease, with long-term current use of insulin (HCC) Dyslipidemia Other and unspecified hyperlipidemia Mild episode of recurrent major depressive disorder (HCC) ELISSA (obstructive sleep apnea) Obstructive sleep apnea (adult) (pediatric) documented in this encounter Advance Directives Documents on File Type Date Recorded Patient Agent Expl anation Advanced Directive 08/22/2009 12:00 AM [...]
--- OUTSIDE RECORDS SUMMARY | 2023-06-01 05:44 | External Medical Summary | Summary of Care ---
Author Name Unknown Organization [place] [address] Care Team Providers Care Waste Treatment Operator Name Role Phone Kevin Whiteside Primary Care Provider Reason for Visit * Reason Comments [facility]: Acute Encounter Details Date Type Department Care Team Description 05/12/2019 Boring Machine Feeder [facility] 132 [facility] [place] [address] Tasha Kurtz RN 132 [facility] [place] [address] [phone] Chronic diastolic congestive heart failure (HCC)* Allergies Active Allergy Reactions Severity Noted Date Comments Heparin 09/04/2009 Heparin Induced Thrombocytopenia Empagliflozin Other (Please comment) Medium 05/17/2018 3 yeast infections in 6 weeks after starting Morphine And Related 09/16/1997 Hallucinations Tetanus Toxoid Other (Please comment) 06/15/2011 Passed out documented as of this encounter (statuses as of 05/12/2019) Medications Medication Sig Dispensed Refills Start Date [...] Tab 5 01/12/2019 Active Vitamin D, Ergocalciferol, 31721 units CapsuleIndications: Vitamin D deficiency Take one capsule by mouth once a week 13 Cap 0 01/13/2019 Active Blood Glucose Monitoring Suppl (MTPVTOUCH ULTRA 2) w/Device KIT Use to test [...] MG TabletIndications:C hronic diastolic congestive heart failure ([facility]) Take 1.5 Tabs by mouth 2 times [...] hemoglobin A1c goal of 7.0%-8.0% ([facility]),Uncontrolled type 2 diabetes mellitus with stage 3 chronic kidney disease, with long-term current use of insulin ([facility]) Inject up to 160 units subcutaneously [...] as of this encounter (statuses as of 05/12/2019) Active Problems Problem Noted Date Other atherosclerosis of circle arteries of extremities, left leg 02/26/2019 Impetigo 09/27/2018 Lumbar radiculopathy 09/27/2018 Mild episode of recurrent [...] as of this encounter (statuses as of 05/12/2019) Resolved Problems Problem Noted Date Resolved Date Vaginal karmen 07/13/2018 08/26/2018 Hypervolemia 07/13/2018 08/26/2018 [...] as of this encounter (statuses as of 05/12/2019) Immunizations Name Administration Dates Next Due Pneumococcal [...] as of this encounter Progress Notes * Tasha Kurtz RN - 05/12/2019 1:58 PM EDT Patient states she was discharged from [facility] on . States she was dehydrated but also had too much fluid in her body. She is feeling good since discharge to home. She checks weight daily. Weight was 337 lbs today, same as yesterday. She denies increased shortness of breath. Denies chest pain. Denies swelling. Appetite is good. Denies bowel or bladder problems.She is taking her medication as prescribed. CM unable to see D/C instructions but patient states her Lasix was decreased and spironolactone wasincreased.CM reminded her of upcoming appointments. Reviewed HF symptom monitoring: -Weigh self daily [...] [facility] Afshin Dyer CRNP [address] [place] [address] [phone] 05/15/2019 Office Visit Family Medicine Kevin Whiteside DO [address] [place] [address] [phone] 05/18/2019 Pharmacy Pharmacy [facility] [address] [place] [address] 05/18/2019 Home Visit [facility] Teddy Mccrary RN [address] [place] [address] [phone] 05/21/2019 Office Visit Nephrology Gia White MD 21 [facility] [place] [address] [phone] 06/15/2019 Office Visit Cardiology Marjorie Powell PA-C [address] [place] [address] [phone] 07/10/2019 Office Visit Sleep Disorders Celsa Tafoya CRNP [address] [place] [address] [phone] 11/07/2019 Office Visit Family Medicine Kevin Whiteside DO [address] [place] [address] [phone] Health Maintenance Due Date Last Done Comments PAP SMEAR-EVERY 3 YRS,AGES 21-65 05/11/2016 05/11/2013, 03/01/2008, 10/19/2006, Additional history exists CKD PHOS USE SMARTSET 83232 12/29/2018 04/0 01/2018, 08/26/2009, 08/25/2009, Additional history exists Influenza Vaccine (FLU shot) (#1) 2019 06/12/2018, 06/12/2018, 07/14/2017, Additional history exists BREAST CANCER SCREENING DISCUSSION YEARLY AGES 40-75 06/23/2019 06/23/2018, 05/09/2015, 07/12/2014, Additional history exists DIABETES-HGBA1C EVERY 6 MONTHS 09/13/2019 03/14/2019, 09/27/2018, 05/01/2018, Additional history exists CKD GFR USE SMARTSET 67558 11/07/201905/07, 03/14/2019, 02/26/2019, Additional history exists DIABETES-FOOT EXAM 01/02/2020 01/01/2019, 0 12/29/2017, 10/21/2016, Additional history exists CKD HGB USE SMARTSET 41857 02/27/202002/26, 12/23/2018, 12/08/2018, Additional history exists DIABETES-URINE [...] Documents on File Type Date Recorded Patient Crystal Finisher Expl anation Advanced Directive 08/22/2009 12:00 [...]
--- OUTSIDE RECORDS SUMMARY | 2023-06-01 05:44 | External Medical Summary | Summary of Care ---
Author Name Unknown Organization [place] [address] Care Team Providers Care Customer Technical Services Manager Name Role Phone Kevin Whiteside Primary Care Provider Reason for Visit * Reason Comments [facility]: Engagement Encounter Details Date Type Department Care Team Description 05/11/2019 Telephone [facility] [address] [place] [address] [facility], Nurse [address] [place] [address] [phone] [facility]: Engagement Allergies Active Allergy Reactions Severity Noted Date Comments Heparin 09/04/2009 Heparin Induced Thrombocytopenia Empagliflozin Other (Please comment) Medium 05/17/2018 3 yeast infections in 6 weeks after starting Morphine And Related 09/16/1997 Hallucinations Tetanus Toxoid Other (Please comment) 06/15/2011 Passed out documented as of this encounter (statuses as of 05/11/2019) Medications Medication Sig Dispensed Refills Start Date [...] Tab 5 01/12/2019 Active Vitamin D, Ergocalciferol, 00186 units CapsuleIndications: Vitamin D deficiency Take one capsule by mouth once a week 13 Cap 0 01/13/2019 Active Blood Glucose Monitoring Suppl (EcoSynthTOUCH ULTRA 2) w/Device KIT Use to test [...] diastolic congestive heart failure ([facility]) Take 1.5 Tabs by mouth 2 [...] with hemoglobin A1c goal of 7.0%-8.0% ([facility]),Uncontrolled type 2 diabetes mellitus with stage 3 chronic kidney disease, with long-term current use of insulin ([facility]) Inject up to 160 units subcutaneously [...] as of this encounter (statuses as of 05/11/2019) Active Problems Problem Noted Date Other atherosclerosis of [place] arteries of extremities, left leg 02/26/2019 Impetigo [...] 10/14/2014 Overview: ICD-10 update of inactive term [place] filter in place 08/19/2014 History of pulmonary [...] as of this encounter (statuses as of 05/11/2019) Resolved Problems Problem Noted Date Resolved Date [...] as of this encounter (statuses as of 05/11/2019) Immunizations Name Administration Dates Next Due Pneumococcal [...] Miscellaneous Notes * Telephone Encounter - Xiang Elizabeth LPN - 05/11/2019 10:36 AM EDT Spoke with Stephanie about [facility] and the benefits of enrolling in the model of care and she agrees to enroll at this time. Appt is as scheduled. Address confirmed. Number to [facility] given to pt. CM aware. documented in this encounter Plan of Treatment Upcoming Encounters Date Type Specialty Care Team Description 05/12/2019 Sheet Sorter [facility] Tasha Kurtz RN [address] [place] [address] [phone] 05/14/2019 Home Visit [facility] Afshin Dyer CRNP [address] [place] [address] [phone] 05/15/2019 Office Visit Family Medicine Kevin Whiteside DO [address] [place] [address] [phone] 05/18/2019 Pharmacy Pharmacy [facility] [place] [address] [place] [address] 05/18/2019 Home Visit [facility] Teddy Mccrary RN [address] [place] [address] [phone] 05/21/2019 Office Visit Nephrology Gia White MD 21 [facility] [place] [address] [phone] 06/15/2019 Office Visit Cardiology Marjorie Powell PA-C [address] [place] [address] [phone] 07/10/2019 Office Visit Sleep Disorders Celsa Tafoya CRNP [address] [place] [address] [phone] 11/07/2019 Office Visit Family Medicine Kevin Whiteside DO [address] [place] [address] [phone] Health Maintenance Due Date Last Done Comments PAP SMEAR-EVERY 3 YRS,AGES 21-65 05/11/2016 05/11/2013, 03/01/2008, 10/19/2006, Additional history exists CKD PHOS USE SMARTSET 21067 12/29/2018 04/0 01/2018, 08/26/2009, 08/25/2009, Additional history exists Influenza Vaccine (FLU shot) (#1) 2019 06/12/2018, 06/12/2018, 07/14/2017, Additional history exists BREAST CANCER SCREENING DISCUSSION YEARLY AGES 40-75 06/23/2019 06/23/2018, 05/09/2015, 07/12/2014, Additional history exists DIABETES-HGBA1C EVERY 6 MONTHS 09/13/2019 03/14/2019, 09/27/2018, 05/01/2018, Additional history exists CKD GFR USE SMARTSET 21063 11/07/201905/07, 03/14/2019, 02/26/2019, Additional history exists DIABETES-FOOT EXAM 01/02/2020 01/01/2019, 0 12/29/2017, 10/21/2016, Additional history exists CKD HGB USE SMARTSET 33569 02/27/202002/26, 12/23/2018, 12/08/2018, Additional history exists DIABETES-URINE [...] on File Type Date Recorded Patient Director Medical Science Expl anation Advanced Directive 08/22/2009 12:00 [...]
--- OUTSIDE RECORDS SUMMARY | 2023-06-01 05:44 | External Medical Summary | Summary of Care ---
Author Name Unknown Organization [place] [address] Care Team Providers Care Public Health Professor Name Role Phone Kevin Whiteside Primary Care Provider Reason for Visit * Reason Comments [facility]: Screening Encounter Details Date Type Department Care Team Description 05/11/2019 Documentation [facility] 132 [facility] [place] [address] [facility], Nurse [facility] [address] [facility] [place] [address] [phone] Allergies Active Allergy Reactions Severity Noted Date [...] Tab 5 01/12/2019 Active Vitamin D, Ergocalciferol, 72495 units CapsuleIndications: Vitamin D deficiency Take one capsule by mouth once a week 13 Cap 0 01/13/2019 Active Blood Glucose Monitoring Suppl ([employer] ULTRA 2) w/Device KIT Use to [...] of 7.0%-8.0% ([facility]),Uncontrolled type 2 diabetes mellitus with stage 3 chronic kidney disease, with long-term current use of insulin ([facility]) Inject up to 160 units subcutaneously once [...] Problems Problem Noted Date Other atherosclerosis of [place] arteries of extremities, left leg 02/26/2019 Impetigo [...] 10/14/2014 Overview: ICD-10 update of inactive term [place] filter in place 08/19/2014 History of pulmonary [...] as of this encounter Progress Notes * Xiang Elizabeth LPN - 05/11/2019 10:38 AM EDT Stephanie Talbot Sebastianandrews was referred as a potential candidate for enrollment in the [facility] for [facility] by: Case Management. A review of this chart was completed and Stephanie is a candidate for Home Based Medical Care. documented in this encounter Plan of Treatment Upcoming Encounters Date Type Specialty Care Team Description 05/12/2019 Corporate Staff Accountant [facility] Tasha Kurtz RN [address] [place] [address] [phone] 05/14/2019 Home Visit [facility] Afshin Dyre CRNP [address] [place] [address] [phone] 05/15/2019 Office Visit Family Medicine Kevin Whiteside, DO [address] [place] [address] [phone] 05/18/[address] [facility] [place] [address] [place] [address] 05/18/2019 Home [facility] Teddy Mccrary RN 132 [facility] [place] [address] [phone] 05/21/2019 Office Visit Nephrology Gia White MD 21 [facility] [place] [address] [phone] 06/15/2019 Office Visit Cardiology Marjorie Powell PA-C 132 [facility] [place] [address] [phone] 07/10/2019 Office Visit Sleep Disorders [facility] [place] [address] [phone] 11/07/2019 Office Visit Family Medicine Kevin Whiteside, [address] [place] [address] [phone] Health Maintenance Due Date Last Done Comments PAP SMEAR-EVERY 3 YRS,AGES 21-65 05/11/2016 05/11/2013, 03/01/2008, 10/19/2006, Additional history exists CKD PHOS USE SMARTSET 18345 12/29/2018 04/0 01/2018, 08/26/2009, 08/25/2009, Additional history exists Influenza Vaccine (FLU shot) (#1) 2019 06/12/2018, 06/12/2018, 07/14/2017, Additional history exists BREAST CANCER SCREENING DISCUSSION YEARLY AGES 40-75 06/23/2019 06/23/2018, 05/09/2015, 07/12/2014, Additional history exists DIABETES-HGBA1C EVERY 6 MONTHS 09/13/2019 03/14/2019, 09/27/2018, 05/01/2018, Additional history exists CKD GFR USE SMARTSET 94703 11/07/201905/07, 03/14/2019, 02/26/2019, Additional history exists DIABETES-FOOT EXAM 01/02/2020 01/01/2019, 0 12/29/2017, 10/21/2016, Additional history exists CKD HGB USE SMARTSET 60846 02/27/202002/26, 12/23/2018, 12/08/2018, Additional history exists DIABETES-URINE [...] on File Type Date Recorded Patient Farmworker Poultry Expl anation Advanced Directive 08/22/2009 12:00 AM [...]
--- OUTSIDE RECORDS SUMMARY | 2023-06-01 05:44 | External Medical Summary | Summary of Care ---
Author Name Unknown Organization [place] [address] Care Team Providers Care Pipe Layer Helper Name Role Phone Kevin Whiteside DO [...] of insulin ([facility]) Body mass index (BMI) of 50.0 to 59.9 in adult ([facility]) Chronic kidney disease (CKD) stage G3b/A3, moderately decreased glomerular filtration rate (GFR) between 30-44 mL/min/1.73 square meter and albuminuria creatinine ratio greater than 300 mg/g ([facility]) Kevin Whiteside DO [address] [place] [address] Reason for Visit * Reason Comments Advice Encounter Details Date Type Department Care Team Description 05/07/2019 Telephone Family Practice [facility] [address] [place] [address] Kevin Whiteside DO [address] [place] [address] [phone] Advice Allergies Active Allergy Reactions Severity Noted Date Comments Heparin 09/04/2009 Heparin Induced Thrombocytopenia Empagliflozin Other (Please comment) Medium 05/17/2018 3 yeast infections in 6 weeks after starting Morphine And Related 09/16/1997 Hallucinations Tetanus Toxoid Other (Please comment) 06/15/2011 Passed out documented as of this encounter (statuses as of 05/08/2019) Medications Medication Sig Dispensed Refills Start Date [...] Tab 5 01/12/2019 Active Vitamin D, Ergocalciferol, 48976 units CapsuleIndications: Vitamin D deficiency Take one capsule by mouth once a week 13 Cap 0 01/13/2019 Active Blood Glucose Monitoring Suppl (geolad ULTRA 2) w/Device KIT Use to test [...] goal of 7.0%-8.0% ([facility]),Uncontrolled type 2 diabetes mellitus with stage 3 chronic kidney disease, with long-term current use of insulin ([facility]) Inject up to 160 units subcutaneously [...] as of this encounter (statuses as of 05/08/2019) Active Problems Problem Noted Date Other atherosclerosis of [place] arteries of extremities, left leg 02/26/2019 Impetigo [...] 10/14/2014 Overview: ICD-10 update of inactive term [place] filter in place 08/19/2014 History of pulmonary [...] as of this encounter (statuses as of 05/08/2019) Resolved Problems Problem Noted Date Resolved Date [...] as of this encounter (statuses as of 05/08/2019) Immunizations Name Administration Dates Next Due Pneumococcal [...] White MD * Telephone Encounter - Teri Cullen RN - 05/08/2019 9:[address] White, pt has been scheduled with you on 05/21 when you are back in [place]. She is not able to get to [...] Specialty Care Team Description 05/18/2019 Pharmacy Pharmacy [facility] [place] [address] [address] 05/21/2019 Office Visit Nephrology Gia White MD [address] [place] [address] [phone] 06/15/2019 Office Visit Cardiology Marjorie Powell PA-C [address] [place] [address] 07/10/2019 Office Visit Sleep Disorders Celsa Tafoya CRNP [address] [place] [address] 11/07/2019 Office Visit Family Medicine Kevin Whiteside DO [address] [place] [address] Scheduled Referrals Name Type Priority Associated Diagnoses Orde r Schedule NEPHROLOGY REFERRAL OP Referral Within 3 days (urgent) Uncontrolled type 2 diabetes mellitus with stage 3 chronic kidney disease, with long-term current use of insulin ([facility]) Body mass index (BMI) of 50.0 to 59.9 in adult ([facility]) Chronic kidney disease (CKD) stage G3b/A3, moderately decreased glomerular filtration rate (GFR) between 30-44 mL/min/1.73 square meter and albuminuria creatinine ratio greater than 300 mg/g ([facility]) Ordered: 05/07/2019 Health Maintenance Due Date Last Done Comments PAP SMEAR-EVERY 3 YRS,AGES 21-65 05/11/2016 05/11/2013, 03/01/2008, 10/19/2006, Additional history exists CKD PHOS USE SMARTSET 57474 12/29/2018 04/0 01/2018, 08/26/2009, 08/25/2009, Additional history exists Influenza Vaccine (FLU shot) (#1) 2019 06/12/2018, 06/12/2018, 07/14/2017, Additional history exists BREAST CANCER SCREENING DISCUSSION YEARLY AGES 40-75 06/23/2019 06/23/2018, 05/09/2015, 07/12/2014, Additional history exists DIABETES-HGBA1C EVERY 6 MONTHS 09/13/2019 03/14/2019, 09/27/2018, 05/01/2018, Additional history exists CKD GFR USE SMARTSET 42972 11/07/201905/07, 03/14/2019, 02/26/2019, Additional history exists DIABETES-FOOT EXAM 01/02/2020 01/01/2019, 0 12/29/2017, 10/21/2016, Additional history exists CKD HGB USE SMARTSET 60191 02/27/202002/26, 12/23/2018, 12/08/2018, Additional history exists DIABETES-URINE [...] on File Type Date Recorded Patient Embedded Software Architect Expl anation Advanced Directive 08/22/2009 12:00 [...]
--- OUTSIDE RECORDS SUMMARY | 2023-06-01 05:44 | External Medical Summary | Summary of Care ---
Author Name Unknown Organization [place] [address] Care Team Providers Care Sourcing Internship Name Role Phone Kevin Whiteside Primary Care Provider Encounter Details Date Type Department Care Team Description 05/09/2019 Scan Encounter Unspecified Department <No scans attached> Allergies Active Allergy Reactions Severity Noted Date Comments Heparin 09/04/2009 Heparin Induced Thrombocytopenia Empagliflozin Other (Please comment) Medium 05/17/2018 3 yeast infections in 6 weeks after starting Morphine And Related 09/16/1997 Hallucinations Tetanus Toxoid Other (Please comment) 06/15/2011 Passed out documented as of this encounter (statuses as of 05/10/2019) Medications Medication Sig Dispensed Refills Start Date [...] Tab 5 01/12/2019 Active Vitamin D, Ergocalciferol, 23512 units CapsuleIndications: Vitamin D deficiency Take one capsule by mouth once a week 13 Cap 0 01/13/2019 Active Blood Glucose Monitoring Suppl ([employer] ULTRA 2) w/Device KIT Use to test [...] of 7.0%-8.0% ([facility]),Uncontrolled type 2 diabetes mellitus with stage 3 chronic kidney disease, with long-term current use of insulin ([facility]) Inject up to 160 units subcutaneously [...] as of this encounter (statuses as of 05/10/2019) Active Problems Problem Noted Date Other atherosclerosis of [place] arteries of extremities, left leg 02/26/2019 Impetigo [...] 10/14/2014 Overview: ICD-10 update of inactive term [place] filter in place 08/19/2014 History of pulmonary [...] as of this encounter (statuses as of 05/10/2019) Resolved Problems Problem Noted Date Resolved Date [...] as of this encounter (statuses as of 05/10/2019) Immunizations Name Administration Dates Next Due Pneumococcal [...] Specialty Care Team Description 05/18/2019 Pharmacy Pharmacy [facility] [place] [address] [place] [address] 05/21/2019 Office Visit Nephrology Gia White MD 21 [facility] [place] [address] [phone] 06/15/2019 Office Visit Cardiology Marjorie Powell PA-C [address] [place] [address] [phone] 07/10/2019 Office Visit Sleep Disorders Celsa Tafoya CRNP [address] [place] [address] [phone] 11/07/2019 Office Visit Family Medicine Kevin Whiteside DO [address] [place] [address] [phone] Health Maintenance Due Date Last Done Comments PAP SMEAR-EVERY 3 YRS,AGES 21-65 05/11/2016 05/11/2013, 03/01/2008, 10/19/2006, Additional history exists CKD PHOS USE SMARTSET 54368 12/29/2018 04/0 01/2018, 08/26/2009, 08/25/2009, Additional history exists Influenza Vaccine (FLU shot) (#1) 2019 06/12/2018, 06/12/2018, 07/14/2017, Additional history exists BREAST CANCER SCREENING DISCUSSION YEARLY AGES 40-75 06/23/2019 06/23/2018, 05/09/2015, 07/12/2014, Additional history exists DIABETES-HGBA1C EVERY 6 MONTHS 09/13/2019 03/14/2019, 09/27/2018, 05/01/2018, Additional history exists CKD GFR USE SMARTSET 31311 11/07/201905/07, 03/14/2019, 02/26/2019, Additional history exists DIABETES-FOOT EXAM 01/02/2020 01/01/2019, 0 12/29/2017, 10/21/2016, Additional history exists CKD HGB USE SMARTSET 75290 02/27/202002/26, 12/23/2018, 12/08/2018, Additional history exists DIABETES-URINE [...] Documents on File Type Date Recorded Patient Educational Therapy Teacher Expl anation Advanced Directive 08/22/2009 12:00 [...]
--- OUTSIDE RECORDS SUMMARY | 2023-06-01 05:44 | External Medical Summary | Summary of Care ---
Author Name Unknown Organization [place] [address] Care Team Providers Care Office Machine Service Supervisor Name Role Phone Kevin Whiteside Primary [...] A1c goal of 7.0%-8.0% ([facility]) Take 1 Cap by mouth 3 times a day. 270 Cap 5 01/01/2019 Active spironolactone (ALDACTONE) 25 MG Tablet Take 0.5 Tabs by mouth daily. 45 Tab 5 01/12/2019 Active Vitamin D, Ergocalciferol, 56458 units CapsuleIndications: Vitamin D deficiency Take one capsule by mouth once a week 13 Cap 0 01/13/2019 Active Blood Glucose Monitoring Suppl ([place] [email or web address] ULTRA 2) w/Device KIT Use to test [...] hemoglobin A1c goal of 7.0%-8.0% ([facility]),Uncontrolled type 2 diabetes mellitus with stage 3 chronic kidney disease, with long-term current use of insulin ([facility]) Inject up to 160 units subcutaneously once [...] Problems Problem Noted Date Other atherosclerosis of [place] arteries of extremities, left leg 02/26/2019 Impetigo [...] 10/14/2014 Overview: ICD-10 update of inactive term [place] filter in place 08/19/2014 History of pulmonary [...] Care Team Description 05/18/2019 Pharmacy Pharmacy [facility] [place] [address] [address] 05/21/2019 Office Visit Nephrology Gia White MD [address] [facility] [place] [place] [address] [phone] 06/15/2019 Office Visit Cardiology Marjorie Powell PA-C [address] [address] [phone] 07/10/2019 Office Visit Sleep Disorders Celsa Tafoya CRNP [address] [address] [phone] 11/07/2019 Office Visit Family Medicine Kevin Whiteside DO [address] [address] [phone] Health Maintenance Due Date Last Done Comments PAP SMEAR-EVERY 3 YRS,AGES 21-65 05/11/2016 05/11/2013, 03/01/2008, 10/19/2006, Additional history exists CKD PHOS USE SMARTSET 80543 12/29/2018 04/0 01/2018, 08/26/2009, 08/25/2009, Additional history exists Influenza Vaccine (FLU shot) (#1) 2019 06/12/2018, 06/12/2018, 07/14/2017, Additional history exists BREAST CANCER SCREENING DISCUSSION YEARLY AGES 40-75 06/23/2019 06/23/2018, 05/09/2015, 07/12/2014, Additional history exists DIABETES-HGBA1C EVERY 6 MONTHS 09/13/2019 03/14/2019, 09/27/2018, 05/01/2018, Additional history exists CKD GFR USE SMARTSET 43302 11/07/201905/07, 03/14/2019, 02/26/2019, Additional history exists DIABETES-FOOT EXAM 01/02/2020 01/01/2019, 0 12/29/2017, 10/21/2016, Additional history exists CKD HGB USE SMARTSET 55835 02/27/202002/26, 12/23/2018, 12/08/2018, Additional history exists DIABETES-URINE [...] Documents on File Type Date Recorded Patient E Commerce Marketing Analyst Expl anation Advanced Directive 08/22/2009 12:00 [...]
--- OUTSIDE RECORDS SUMMARY | 2023-06-01 05:44 | External Medical Summary | Summary of Care ---
Author Name Unknown Organization [place] [address] Care Team Providers Care Chief Relay Tester Name Role Phone Kevin Whiteside Primary Care Provider Encounter Details Date Type Department Care Team Description 05/09/2019 Documentation [facility] [address], [place] [id number] [facility], Nurse [facility] [address] [place] [address] Allergies Active Allergy Reactions Severity Noted Date Comments Heparin 09/04/2009 Heparin Induced Thrombocytopenia Empagliflozin Other (Please comment) Medium 05/17/2018 3 yeast infections in 6 weeks after starting Morphine And Related 09/16/1997 Hallucinations Tetanus Toxoid Other (Please comment) 06/15/2011 Passed out documented as of this encounter (statuses as of 05/09/2019) Medications Medication Sig Dispensed Refills Start Date [...] Tab 5 01/12/2019 Active Vitamin D, Ergocalciferol, 71518 units CapsuleIndications: Vitamin D deficiency Take one [...] of 7.0%-8.0% ([facility]),Uncontrolled type 2 diabetes mellitus with stage 3 chronic kidney disease, with long-term current use of insulin ([facility]) Inject up to 160 units subcutaneously [...] as of this encounter (statuses as of 05/09/2019) Active Problems Problem Noted Date Other atherosclerosis of [place] arteries of extremities, left leg 02/26/2019 Impetigo [...] as of this encounter (statuses as of 05/09/2019) Resolved Problems Problem Noted Date Resolved Date [...] as of this encounter (statuses as of 05/09/2019) Immunizations Name Administration Dates Next Due Pneumococcal [...] Travel End documented as of this encounter Nursing Notes * Vera Reno LPN - 05/09/2019 8:51 AM EDT Stephanie Camp was referred as a potential candidate for enrollment in the [facility] for [facility] by: Case Management. A review of this chart was completed and Stephanie is a candidate for Home Based Medical Care. [place] Hardware Installer Charlotte Nicholson, RN put in this urgent referral, stated that the patient utilizes at [facility] and she has had 3 Admissions in the last 5 months. Newly diagnosed with Heart Failure , O2 Dependent. HX of Type 2 diabetes, Dyslipidemia, Nocturnal Hypoxemia, ELISSA, Chronic diastolic congestive Heart Failure, venous insufficiency, HTN, Fibromyalgia, Generalized anxiety disorder. Sent to [place] as urgent to Tiffany Elizabeth LPN intake to find a nurse to go in to start services for the patient. documented in this encounter Plan of Treatment Upcoming Encounters Date Type Specialty Care Team Description 05/18/2019 Pharmacy Pharmacy [facility] [place] [address] [place] [address] 05/21/2019 Office Visit Nephrology Gia White MD [address] [address] [phone] 06/15/2019 Office Visit Cardiology Marjorie Powell PA-C [address] [place] [address] [phone] 07/10/2019 Office Visit Sleep Disorders Celsa Tafoya CRNP [address] [place] [address] [phone] 11/07/2019 Office Visit Family Medicine Kevin Whiteside DO [address] [address] [phone] Health Maintenance Due Date Last Done Comments PAP SMEAR-EVERY 3 YRS,AGES 21-65 05/11/2016 05/11/2013, 03/01/2008, 10/19/2006, Additional history exists CKD PHOS USE SMARTSET 37347 12/29/2018 04/01/2018, 08/26/2009, 08/25/2009, Additional history exists Influenza Vaccine (FLU shot) (#1) 2019 06/12/2018, 06/12/2018, 07/14/2017, Additional history exists BREAST CANCER SCREENING DISCUSSION YEARLY AGES 40-75 06/23/2019 06/23/2018, 05/09/2015, 07/12/2014, Additional history exists DIABETES-HGBA1C EVERY 6 MONTHS 09/13/2019 03/14/2019, 09/27/2018, 05/01/2018, Additional history exists CKD GFR USE SMARTSET 99692 11/07/201905/07, 03/14/2019, 02/26/2019, Additional history exists DIABETES-FOOT EXAM 01/02/2020 01/01/2019, 0 12/29/2017, 10/21/2016, Additional history exists CKD HGB USE SMARTSET 82848 02/27/202002/26, 12/23/2018, 12/08/2018, Additional history exists DIABETES-URINE [...] Documents on File Type Date Recorded Patient Fishing Boat Captain Expl anation Advanced Directive 08/22/2009 12:00 [...]
--- OUTSIDE RECORDS SUMMARY | 2023-06-01 05:44 | External Medical Summary | Summary of Care ---
Author Name Unknown Organization [place] [address] Care Team Providers Care Measurer Machine Name Role Phone Kevin Whiteside Primary Care [...] Tab 5 01/12/2019 Active Vitamin D, Ergocalciferol, 85518 units CapsuleIndications: Vitamin D deficiency Take one capsule by mouth once a week 13 Cap 0 01/13/2019 Active Blood Glucose Monitoring Suppl ([employer] ULTRA 2) w/Device KIT Use to test [...] of 7.0%-8.0% ([facility]),Uncontrolled type 2 diabetes mellitus with stage 3 chronic kidney disease, with long-term current use of insulin ([facility]) Inject up to 160 units subcutaneously once [...] Problems Problem Noted Date Other atherosclerosis of [place] arteries of extremities, left leg 02/26/2019 Impetigo [...] 10/14/2014 Overview: ICD-10 update of inactive term [place] filter in place 08/19/2014 History of pulmonary [...] Medicine Kevin Whiteside DO [address] [address] [phone] 05/18/2019 Pharmacy Pharmacy [facility] [address] [address] 05/21/2019 Office Visit Nephrology Gia White MD [address] [facility] [address] [id number] 06/15/2019 Office Visit Cardiology Marjorie Powell PA-C [address] [address] [phone] 07/10/2019 Office Visit Sleep Disorders Celsa Tafoya CRNP [address] [address] [phone] 11/07/2019 Office Visit Family Medicine Kevin Whiteside DO [address] [address] [phone] Health Maintenance Due Date Last Done Comments PAP SMEAR-EVERY 3 YRS,AGES 21-65 05/11/2016 05/11/2013, 03/01/2008, 10/19/2006, Additional history exists CKD PHOS USE SMARTSET 37225 12/29/2018 04/0 01/2018, 08/26/2009, 08/25/2009, Additional history exists Influenza Vaccine (FLU shot) (#1) 2019 06/12/2018, 06/12/2018, 07/14/2017, Additional history exists BREAST CANCER SCREENING DISCUSSION YEARLY AGES 40-75 06/23/2019 06/23/2018, 05/09/2015, 07/12/2014, Additional history exists DIABETES-HGBA1C EVERY 6 MONTHS 09/13/2019 03/14/2019, 09/27/2018, 05/01/2018, Additional history exists CKD GFR USE SMARTSET 26367 11/07/201905/07, 03/14/2019, 02/26/2019, Additional history exists DIABETES-FOOT EXAM 01/02/2020 01/01/2019, 0 12/29/2017, 10/21/2016, Additional history exists CKD HGB USE SMARTSET 38161 02/27/202002/26, 12/23/2018, 12/08/2018, Additional history exists DIABETES-URINE [...] Documents on File Type Date Recorded Patient Volleyball Assistant Coach Expl anation Advanced Directive 08/22/2009 12:00 [...]
--- OUTSIDE RECORDS SUMMARY | 2023-06-01 05:44 | External Medical Summary | Summary of Care ---
Author Name Unknown Organization [place] [address] Care Team Providers Care Stone Sawyer Name Role Phone Kevin Whiteside Primary Care Provider Reason for Visit * Reason Comments [facility]: Acute Encounter Details Date Type Department Care Team Description 05/12/2019 Roofer Vinyl Coating [facility] [address] [facility] [address] [place] [address] Tasha Kurtz RN 132 [facility] [address] [place] [address] [phone] Chronic diastolic congestive heart failure (HCC)* Allergies [...] Tab 5 01/12/2019 Active Vitamin D, Ergocalciferol, 88400 units CapsuleIndications: Vitamin D deficiency Take one capsule by mouth once a week 13 Cap 0 01/13/2019 Active Blood Glucose Monitoring Suppl ([employer] Ada SoftwareTOUCH ULTRA 2) w/Device KIT Use to [...] TabletIndications:C hronic diastolic congestive heart failure ([facility]) Take 1.5 Tabs by mouth 2 [...] A1c goal of 7.0%-8.0% ([facility]),Uncontrolled type 2 diabetes mellitus with stage 3 chronic kidney disease, with long-term current use of insulin ([facility]) Inject up to 160 units subcutaneously [...] Problems Problem Noted Date Other atherosclerosis of [place] arteries of extremities, left leg 02/26/2019 Impetigo [...] EDT Patient states she was discharged from [facility] on . States she was dehydrated [...] Afshin Dyer CRNP [address] [place] [address] [phone] 05/15/2019 Office Visit Family Medicine Kevin Whiteside DO [address] [address] [phone] 05/18/2019 Pharmacy Pharmacy [facility] [address] [address] 05/18/2019 [facility] Visit [facility] Teddy Mccrary RN [address] [place] [address] [phone] 05/21/2019 Office Visit Nephrology Gia White MD [address] [facility] [address] [address] [phone] 06/15/2019 Office Visit Cardiology Marjorie Powell PA-C [address] [address] [phone] 07/10/2019 Office Visit Sleep Disorders Celsa Tafoya CRNP [address] [address] [phone] 11/07/2019 Office Visit Family Medicine Kevin Whiteside DO [address] [address] [phone] Health Maintenance Due Date Last Done Comments PAP SMEAR-EVERY 3 YRS,AGES 21-65 05/11/2016 05/11/2013, 03/01/2008, 10/19/2006, Additional history exists CKD PHOS USE SMARTSET 88250 12/29/2018 04/0 01/2018, 08/26/2009, 08/25/2009, Additional history exists Influenza Vaccine (FLU shot) (#1) 2019 06/12/2018, 06/12/2018, 07/14/2017, Additional history exists BREAST CANCER SCREENING DISCUSSION YEARLY AGES 40-75 06/23/2019 06/23/2018, 05/09/2015, 07/12/2014, Additional history exists DIABETES-HGBA1C EVERY 6 MONTHS 09/13/2019 03/14/2019, 09/27/2018, 05/01/2018, Additional history exists CKD GFR USE SMARTSET 25438 11/07/201905/07, 03/14/2019, 02/26/2019, Additional history exists DIABETES-FOOT EXAM 01/02/2020 01/01/2019, 0 12/29/2017, 10/21/2016, Additional history exists CKD HGB USE SMARTSET 21506 02/27/202002/26, 12/23/2018, 12/08/2018, Additional history exists DIABETES-URINE [...] on File Type Date Recorded Patient Director Behavioral Health Expl anation Advanced Directive 08/22/2009 12:00 AM [...]
--- OUTSIDE RECORDS SUMMARY | 2023-06-01 05:44 | External Medical Summary | Summary of Care ---
Author Name Unknown Organization [place] [address] Care Team Providers Care Yard Jacker Name Role Phone Kevin Whiteside Primary Care Provider Reason for Visit * Reason Comments Referral Encounter Details Date Type Department Care Team Description 05/09/2019 Telephone Internal Medicine [address] [address] Frances Nicholson RN [address] [place] [address] Referral Allergies Active Allergy Reactions Severity [...] Tab 5 01/12/2019 Active Vitamin D, Ergocalciferol, 34020 units CapsuleIndications: Vitamin D deficiency Take one capsule by mouth once a week 13 Cap 0 01/13/2019 Active Blood Glucose Monitoring Suppl ([employer] ULTRA 2) w/Device KIT Use to test [...] goal of 7.0%-8.0% ([facility]),Uncontrolled type 2 diabetes mellitus with stage 3 chronic kidney disease, with long-term current use of insulin ([facility]) Inject up to 160 units [...] CKD stage 3 05/14/2019 Other atherosclerosis of [place] arteries of extremities, left leg 02/26/2019 [...] Miscellaneous Notes * Telephone Encounter - Frances Nicholson RN - 05/09/2019 9:19 AM EDT LINDA Nicholson RN, [facility] Top Lift Nailer [phone] * Telephone Encounter - Frances Nicholson RN - 05/09/2019 9:18 AM EDT Spoke with pt Agreeable to [email or web address] Call placed to [email or web address] and spoke with Vera Referred to [email or web address] and requested urgent referral/appointment Frances Nicholson RN, [facility] Top Lift Nailer [phone] documented in this encounter Plan of Treatment Upcoming Encounters Date Type Specialty Care Team Description 05/14/2019 Home Visit [facility] Afshin Dyer CRNP [address] [address] [phone] Uncontrolled type 2 diabetes mellitus with stage 3 chronic kidney disease, with long-term current use of insulin ([facility])*; Type 2 diabetes mellitus with diabetic dermatitis, with long-term current use of insulin ([facility]); Gastroesophageal reflux disease with esophagitis; Mild episode of recurrent major depressive disorder ([facility]); 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, NYHA class 1 and CKD stage 3 ([facility]); Postsurgical hypothyroidism; Other atherosclerosis of [place] arteries of extremities, left leg ([facility]); Body mass index (BMI) of 50.0 to 59.9 in adult ([facility]) 05/15/2019 Office Visit Family Medicine Kevin Whiteside DO [address] [address] [phone] 05/18/2019 Pharmacy Pharmacy [facility] [address] [address] 05/18/2019 Home Visit [facility] Teddy Mccrary RN [address] [address] [phone] 05/21/2019 Office Visit Nephrology Gia White MD [address] [email or web address] [address] [place] [address] [phone] 06/15/2019 Office Visit Cardiology Marjorie Powell PA-C [address] [address] [phone] 07/10/2019 Office Visit Sleep Disorders Celsa Tafoya CRNP [address] [address] [phone] 11/07/2019 Office Visit Family Medicine Kevin Whiteside DO [address] [address] [phone] Health Maintenance Due Date Last Done Comments PAP SMEAR-EVERY 3 YRS,AGES 21-65 05/11/2016 05/11/2013, 03/01/2008, 10/19/2006, Additional history exists CKD PHOS USE SMARTSET 41431 12/29/2018 04/0 01/2018, 08/26/2009, 08/25/2009, Additional history exists Influenza Vaccine (FLU shot) (#1) 2019 06/12/2018, 06/12/2018, 07/14/2017, Additional history exists BREAST CANCER SCREENING DISCUSSION YEARLY AGES 40-75 06/23/2019 06/23/2018, 05/09/2015, 07/12/2014, Additional history exists DIABETES-HGBA1C EVERY 6 MONTHS 09/13/2019 03/14/2019, 09/27/2018, 05/01/2018, Additional history exists CKD GFR USE SMARTSET 39062 11/07/201905/07, 03/14/2019, 02/26/2019, Additional history exists DIABETES-FOOT EXAM 01/02/2020 01/01/2019, 0 12/29/2017, 10/21/2016, Additional history exists CKD HGB USE SMARTSET 15762 02/27/202002/26, 12/23/2018, 12/08/2018, Additional history exists DIABETES-URINE [...] on File Type Date Recorded Patient Food Counter Attendant Expl anation Advanced Directive 08/22/2009 12:00 [...]
--- OUTSIDE RECORDS SUMMARY | 2023-06-01 05:44 | External Medical Summary | Summary of Care ---
Author Name Unknown Organization [place] [address] Care Team Providers Care Tire Bladder Maker Name Role Phone Kevin Whiteside DO Primary Care Provider Reason for Referral * Evaluate & Treat - Unlimited Visits (Within 3 days (urgent)) Status Reason Specialty Diagnoses / Procedures Referred By Contact Referred To Contact Authorized Specialty Services Required Nephrology Diagnoses Uncontrolled type 2 diabetes mellitus with stage 3 chronic kidney disease, with long-term current use of insulin ([facility]) Body mass index (BMI) of 50.0 to 59.9 in adult ([facility]) Chronic kidney disease (CKD) stage G3b/A3, moderately decreased glomerular filtration rate (GFR) between 30-44 mL/min/1.73 square meter and albuminuria creatinine ratio greater than 300 mg/g ([facility]) Kevin Whiteside DO [address] [address] Reason for Visit * Reason Comments Advice Encounter Details Date Type Department Care Team Description 05/07/2019 Telephone Family Practice [facility] [address] [address] Kevin Whiteside DO [address] [address] [phone] Advice Allergies Active Allergy Reactions Severity Noted [...] Tab 5 01/12/2019 Active Vitamin D, Ergocalciferol, 45408 units CapsuleIndications: Vitamin D deficiency Take one capsule by mouth once a week 13 Cap 0 01/13/2019 Active Blood Glucose Monitoring Suppl (LookIt ULTRA 2) w/Device KIT Use to test [...] A1c goal of 7.0%-8.0% ([facility]),Uncontrolled type 2 diabetes mellitus with stage 3 chronic kidney disease, with long-term current use of insulin ([facility]) Inject up to 160 units [...] Problems Problem Noted Date Other atherosclerosis of [place] arteries of extremities, left leg 02/26/2019 Impetigo [...] on 05/21 when you are back in [place]. She is not able to get to [...] Specialty Care Team Description 05/18/2019 Pharmacy Pharmacy [facility] [place] [address] [address] 05/21/2019 Office Visit Nephrology Gia White MD [address] [address] [phone] 06/15/2019 Office Visit Cardiology Marjorie Powell PA-C [...] use of insulin ([facility]) Body mass index (BMI) of 50.0 to 59.9 in adult (HCC) Chronic kidney disease (CKD) stage G3b/A3, moderately decreased glomerular filtration rate (GFR) between 30-44 mL/min/1.73 square meter and albuminuria creatinine ratio greater than 300 mg/g ([facility]) Ordered: 05/07/2019 Health Maintenance Due Date Last Done Comments PAP SMEAR-EVERY 3 YRS,AGES 21-65 05/11/2016 05/11/2013, 03/01/2008, 10/19/2006, Additional history exists CKD PHOS USE SMARTSET 50488 12/29/2018 04/0 01/2018, 08/26/2009, 08/25/2009, Additional history exists Influenza Vaccine (FLU shot) (#1) 2019 06/12/2018, 06/12/2018, 07/14/2017, Additional history exists BREAST CANCER SCREENING DISCUSSION YEARLY AGES 40-75 06/23/2019 06/23/2018, 05/09/2015, 07/12/2014, Additional history exists DIABETES-HGBA1C EVERY 6 MONTHS 09/13/2019 03/14/2019, 09/27/2018, 05/01/2018, Additional history exists CKD GFR USE SMARTSET 22272 11/07/201905/07, 03/14/2019, 02/26/2019, Additional history exists DIABETES-FOOT EXAM 01/02/2020 01/01/2019, 0 12/29/2017, 10/21/2016, Additional history exists CKD HGB USE SMARTSET 26969 02/27/202002/26, 12/23/2018, 12/08/2018, Additional history exists DIABETES-URINE [...] on File Type Date Recorded Patient Tobacco Cutter Expl anation Advanced Directive 08/22/2009 12:00 [...]
--- OUTSIDE RECORDS SUMMARY | 2023-06-01 05:44 | External Medical Summary | Summary of Care ---
Author Name Unknown Organization [place] [address] Care Team Providers Care Mechanical Sound Technician Name Role Phone Kevin Whiteside Primary Care Provider Reason for Visit * Reason Comments case management Encounter Details Date Type Department Care Team Description 05/08/2019 Telephone Internal Medicine [address] [address] Frances Nicholson RN [address] [place] [address] case management Allergies Active Allergy Reactions Severity Noted Date [...] Tab 5 01/12/2019 Active Vitamin D, Ergocalciferol, 39578 units CapsuleIndications: Vitamin D deficiency Take one capsule by mouth once a week 13 Cap 0 01/13/2019 Active Blood Glucose Monitoring Suppl (emaze ULTRA 2) w/Device KIT Use to test [...] of 7.0%-8.0% ([facility]),Uncontrolled type 2 diabetes mellitus with stage 3 chronic kidney disease, with long-term current use of insulin ([facility]) Inject up to 160 units subcutaneously once [...] Problems Problem Noted Date Other atherosclerosis of ute arteries of extremities, left leg 02/26/2019 Impetigo [...] 10/14/2014 Overview: ICD-10 update of inactive term [place] filter in place 08/19/2014 History of pulmonary [...] Telephone Encounter - Frances Nicholson RN - 05/08/2019 5:17 PM EDT PMH: DM, HTN, SOA with CPAP, history of PE, zoraida filter in place, dyslipidemia-statin intol, GERD, Fibromyalgia, depression/anxiety New-acute diastolic HF and ELSIE sent from PCP office abnormal labs and shortness of breath. x-ray concerning for atypical pneumonia 06/06/18-[facility] admit Acute respiratory failure with hypoxia and hypercapnia: Presented with SOB and hypoxia. O2 sats as low as 86%. ABG demonstrated CO2 retention. Chest x-ray showed cardiomegaly and pulmonary vascular congestion. Acute resp failure probably secondary to CHF. May also have associated obesity hypoventilation syndrome. Echocardiogram demonstrated mild concentric LVH, LVEF 6570%, normal right ventricular size and systolic function. Probable acute left ventricular diastolic heart failure. weight 343 on d/c 06/10/18 d/c from [facility] new on Lasix, potassium and Mg Stopped Metformin and HCTZ 12/08 [facility] admit acute decompensated diastolic HF Consulted Cardiology and nephrology 12/14/18 D/c to home Added Spirolactone Increased Lasix to 80 mg BID (4-6 hours apart) Weekly BMP x 4 weights and home BP cuff D/c weight 351.2 12/18-Dr Whiteside 01/12-cards 01/24-neph 12/23 [facility] admit with Nausea, abd pain, intermittent fever (afebrile in EE), headaches, diffuse body aches. Creat elevated 2.52 on admit UTI- for Klebsiella 12/27-d/c to home 10 days of Omnicef for UTI 2nd set of blood cultures neg d/c weight 157.8 Kg (D/C weight last admit was 159.3) 01/01-Dr Whiteside 01/11-sleep med-but had to alcel sleep study due to hosp 01/12-cards 02/28-[facility] admit for fall-slipped, couldn't get up Fall: Fell after legs slid on the floor Possible related to orthostatic vs mechanical fall Xray hip showed no fracture or dislocation within the pelvis or hips. Xray of knees showed No fractures within the right or left knee. -[id number] 03/04 D/C form [facility] Requip 2 mg HS Lasix decreased to 60 mg, but if weight increases by more than 2 lbs, needs to take extra 20 mg of Lasix Needs BMP in 1 week O2 at HS and with ambulation 03/05-Dr Whiteside Case Management -worsening kidney function C/o malaise body aches Call to pt She reports that she feels better than she did. Reports that she spoke with Dr Whiteside earlier this evening. She feels that she does not need to go to the ER just yet Aware that she needs to stay hydrated -instructed to drink around 60-62 oz/day Question pt if she is using NSAIDs-pt reports that she has been taking Ibuprofen-instructed pt to avoid Advil, Motrin, Aleve and Ibuprofen. Made aware that these meds are damaging to her kidneys Instructed pt to call with any worsening symptoms or any increased SOB, edema, weight gain of 3 lbsor more in 24 hours or 5 lbs or more in a week, unmanaged BS that are >25 x 24 hours or any other concerns Discussed G@Home-pt is agreeable to referral Will call pt again this week Frances Nicholson RN, [facility] Equity Manager [phone] documented in this encounter Plan of Treatment Upcoming Encounters Date Type Specialty Care Team Description 05/18/2019 Pharmacy Pharmacy [facility], [facility] [address] [place] [address] 05/21/2019 Office Visit Nephrology Gia White MD [address] [address] 06/15/2019 Office Visit Cardiology Marjorie Powell PA-C [address] [address] 07/10/2019 Office Visit Sleep Disorders Celsa Tafoya CRNP [address] [place] [address] 11/07/2019 Office Visit Family Medicine Kevin Whiteside DO [address] [address] Health Maintenance Due Date Last Done Comments PAP SMEAR-EVERY 3 YRS,AGES 21-65 05/11/2016 05/11/2013, 03/01/2008, 10/19/2006, Additional history exists CKD PHOS USE SMARTSET 07452 12/29/2018 04/01/2018, 08/26/2009, 08/25/2009, Additional history exists Influenza Vaccine (FLU shot) (#1) 2019 06/12/2018, 06/12/2018, 07/14/2017, Additional history exists BREAST CANCER SCREENING DISCUSSION YEARLY AGES 40-75 06/23/2019 06/23/2018, 05/09/2015, 07/12/2014, Additional history exists DIABETES-HGBA1C EVERY 6 MONTHS 09/13/2019 03/14/2019, 09/27/2018, 05/01/2018, Additional history exists CKD GFR USE SMARTSET 48181 11/07/201905/07, 03/14/2019, 02/26/2019, Additional history exists DIABETES-FOOT EXAM 01/02/2020 01/01/2019, 0 12/29/2017, 10/21/2016, Additional history exists CKD HGB USE SMARTSET 67064 02/27/202002/26, 12/23/2018, 12/08/2018, Additional history exists DIABETES-URINE [...] Documents on File Type Date Recorded Patient Binding Dyer Expl anation Advanced Directive 08/22/2009 12:00 AM [...]
--- OUTSIDE RECORDS SUMMARY | 2023-06-01 05:44 | External Medical Summary | Summary of Care ---
Author Name Unknown Organization [place] [address] Care Team Providers Care Periodicals Clerk Name Role Phone Kevin Whiteside Primary Care Provider Reason for Visit * Reason Comments case management Encounter Details Date Type Department Care Team Description 05/08/2019 Telephone Internal Medicine [address] [address] Frances Nicholson RN [address] [place] [address] case management Allergies Active Allergy [...] Tab 5 01/12/2019 Active Vitamin D, Ergocalciferol, 13383 units CapsuleIndications: Vitamin D deficiency Take one capsule by mouth once a week 13 Cap 0 01/13/2019 Active Blood Glucose Monitoring Suppl (Sonian ULTRA 2) w/Device KIT Use to test [...] 50.0 to 59.9 in adult ([facility]),Hypoxemia,ELISSA (obstructive sleep apnea),HTN, goal below 140/80 Take [...] Problems Problem Noted Date Other atherosclerosis of [place] arteries of extremities, left leg 02/26/2019 Impetigo [...] 10/14/2014 Overview: ICD-10 update of inactive term [place] filter in place 08/19/2014 History of pulmonary [...] of breath. x-ray concerning for atypical pneumonia 06/06/18-[facility] admit Acute respiratory failure with hypoxia and [...] weight 343 on d/c 06/10/18 d/c from [facility] new on Lasix, potassium and Mg Stopped Metformin and HCTZ 12/08 [facility] admit acute decompensated diastolic HF Consulted Cardiology and nephrology 12/14/18 D/c to home Added Spirolactone Increased Lasix to 80 mg BID (4-6 hours apart) Weekly BMP x 4 weights and home BP cuff D/c weight 351.2 12/18-Dr Whiteside 01/12-cards 01/24-neph 12/23 [facility] admit with Nausea, abd pain, intermittent fever (afebrile in EE), headaches, diffuse body aches. Creat elevated 2.52 on admit UTI- for Klebsiella 12/27-d/c to home 10 days of Omnicef for UTI 2nd set of blood cultures neg d/c weight 157.8 Kg (D/C weight last admit was 159.3) 01/01-Dr Whiteside 01/11-sleep med-but had to alcel sleep study due to hosp 01/12-cards 02/28-[facility] admit for fall-slipped, couldn't get up Fall: Fell after legs slid on the floor Possible related to orthostatic vs mechanical fall Xray hip showed no fracture or dislocation within the pelvis or hips. Xray of knees showed No fractures within the right or left knee. -[id number] 03/04 D/C form [facility] Requip 2 mg HS Lasix decreased to [...] pt again this week Frances Nicholson RN, [facility] Tool Analyst [phone] documented in this encounter Plan of Treatment Upcoming Encounters Date Type Specialty Care Team Description 05/18/2019 Pharmacy Pharmacy [facility] [place] [address] [place] [address] [...] Additional history exists CKD PHOS USE SMARTSET 71813 12/29/2018 04/01/2018, 08/26/2009, 08/25/2009, Additional history exists Influenza Vaccine (FLU shot) (#1) 2019 06/12/2018, 06/12/2018, 07/14/2017, Additional history exists BREAST CANCER SCREENING DISCUSSION YEARLY AGES 40-75 06/23/2019 06/23/2018, 05/09/2015, 07/12/2014, Additional history exists DIABETES-HGBA1C EVERY 6 MONTHS 09/13/2019 03/14/2019, 09/27/2018, 05/01/2018, Additional history exists CKD GFR USE SMARTSET 80794 11/07/201905/07, 03/14/2019, 02/26/2019, Additional history exists DIABETES-FOOT EXAM 01/02/2020 01/01/2019, 0 12/29/2017, 10/21/2016, Additional history exists CKD HGB USE SMARTSET 17267 02/27/202002/26, 12/23/2018, 12/08/2018, Additional history exists DIABETES-URINE [...] on File Type Date Recorded Patient Fish Net Stringer Expl anation Advanced Directive 08/22/2009 12:00 AM [...]
--- OUTSIDE RECORDS SUMMARY | 2023-06-01 05:45 | External Medical Summary | Summary of Care ---
Author Name Unknown Organization [place] [address] Care Team Providers Care Tax Form Preparer Name Role Phone Kevin Whiteside Primary Care Provider Encounter Details Date Type Department Care Team Description 05/03/2019 Pool TechnicianHome Inspector Medicine [address] [address] Frances Nicholson RN [address] [place] [address] HF (heart failure) ([facility]; Uncontrolled type 2 diabetes mellitus with stage 3 chronic kidney disease, with long-term current use of insulin ([facility]) Allergies Active Allergy Reactions Severity Noted Date Comments Heparin 09/04/2009 Heparin Induced Thrombocytopenia Empagliflozin Other (Please comment) Medium 05/17/2018 3 yeast infections in 6 weeks after starting Morphine And Related 09/16/1997 Hallucinations Tetanus Toxoid Other (Please comment) 06/15/2011 Passed out documented as of this encounter (statuses as of 05/03/2019) Medications Medication Sig Dispensed Refills Start Date End Date Status PRILOSEC 20 MG PO CPDR one tablet daily 0 Active docusate sodium (STOOL SOFTENER) 100 MG Capsule Take 100 mg by mouth 2 times a day as needed for Constipation. 0 Active MAG64 64 MG TBEC Take 64 mg by mouth 2 times a day. 0 06/10/2018 Active cyclobenzaprine (FLEXERIL) 10 MG Tablet TAKE [...] Tab 5 01/12/2019 Active Vitamin D, Ergocalciferol, 83976 units CapsuleIndications: Vitamin D deficiency Take one capsule by mouth once a week 13 Cap 0 01/13/2019 Active Blood Glucose Monitoring Suppl (Kuwo Science and TechnologyTOUCH ULTRA 2) w/Device KIT Use to [...] MG TabletIndications:C hronic diastolic congestive heart failure ([facility]) Take 1.5 Tabs by mouth 2 times [...] vitamin C. 30 Tab 5 04/27/2019 Active documented as of this encounter (statuses as of 05/03/2019) Active Problems Problem Noted Date Other atherosclerosis of [place] arteries of extremities, left leg 02/26/2019 Impetigo [...] 10/14/2014 Overview: ICD-10 update of inactive term [place] filter in place 08/19/2014 History of pulmonary [...] as of this encounter (statuses as of 05/03/2019) Resolved Problems Problem Noted Date Resolved Date [...] as of this encounter (statuses as of 05/03/2019) Immunizations Name Administration Dates Next Due Pneumococcal [...] of this encounter Progress Notes * Frances Nicholson RN - 05/03/2019 9:05 AM EDT PMH: DM, HTN, SOA with CPAP, history of PE, zoraida filter in place, dyslipidemia-statin intol, GERD, Fibromyalgia, depression/anxiety New-acute diastolic HF and ELSIE sent from PCP office abnormal labs and shortness of breath. x-ray concerning for atypical pneumonia 06/06/18-[facility] admit Acute respiratory failure with hypoxia [...] weight 343 on d/c 06/10/18 d/c from [facility] new on Lasix, potassium and Mg Stopped Metformin and HCTZ 12/08 [facility] admit acute decompensated diastolic HF Consulted Cardiology and nephrology 12/14/18 D/c to home Added Spirolactone Increased Lasix to 80 mg BID (4-6 hours apart) Weekly BMP x 4 weights and home BP cuff D/c weight 351.2 12/18-Dr Whiteside 01/12-cards 01/24-neph 12/23 [facility] admit with Nausea, abd pain, intermittent fever (afebrile in EE), headaches, diffuse body aches. Creat elevated 2.52 on admit UTI- for klebselli 12/27-d/c to home 10 days of Omnicef for UTI 2nd set of blood cultures neg d/c weight 157.8 Kg (D/C weight last admit was 159.3) 01/01-Dr Whiteside 01/11-sleep med-but had to alcel sleep study due to hosp 01/12-cards 02/28-[facility] admit for fall-slipped, couldn't get up Fall: Fell after legs slid on the floor Possible related to orthostatic vs mechanical fall Xray hip showed no fracture or dislocation within the pelvis or hips. Xray of knees showed No fractures within the right or left knee. -[id number] 03/04 D/C form [facility] Requip 2 mg HS Lasix decreased to 60 mg, but if weight increases by more than 2 lbs, needs to take extra 20 mg of Lasix Needs BMP in 1 week O2 at HS and with ambulation 03/05-Dr Whiteside Case Management Assessment/GOALS Is this call for a hospital, [facility] or rehab facility discharge to home? No S: Reports:Pt reports that she now has an insulin pump. Had some high BS overthen weekned 300-400s.Reports that she called into the pharmacist and her insulin was adjusted and her BS are coming down. HS yesterday was 309 and this morning BS was 320. Pt was instructed to call [facility] pharmacist today or early tomorrow with update and michael if BS are not <300. Pt reports that she bought a scale and BP cuff. Says that her weight on was 337 and yesterday it was 338. Says that it was elevated over the weekend, so she took Lasix 80 mg Sat PM and Sun AM and her weight returned to baseline.Reports that when wt up, she felt more SOB, but now back to normal.Now living in new apartment and really likes it, rent much cheaper Weight gain: Denies Weight stable at 338 lbs Increased edema: denies Chest pain denies Increased shortness of breath: denies cough denies dyspnea with daily activities oxygen Has home O2, uses with Bi-PAP at HS and PRN day with activity conserving device (C-PAP / BiPAP) Chills / Sweats / Fever: denies chills/sweats and denies fever Fall: denies any falls since last Care Management encounter Appetite: denies nausea, vomiting, burning, decreased appetite Bowel: denies problems Bladder: denies problems Medications: new on insulin pump and Ozempic Chronic Pain: Chronic pain/neuropathy O: Phone visit for GOALS. Medications: takes all medications as prescribed. A: Patient Centered Prioritized Goals: pt will verbalize s/s needing reported to Dr/CM. Pt's HF and DM will be managed Development of self - management action plan with patient/caregiver/ provider. Patient and caregiver demonstrate basic understanding of their disease process. Exacerbations have been prevented, minimized or reduced in severity. Co-morbid conditions identified and managed. Patient/ caregiver demonstrates adherence to treatment plan. Identified Barriers: Patient/caregiver's lack of understanding of their condition and prescribed treatment plan FUNCTIONAL STATUS: (Definition - assess ability to [...] to communicate, understand instructions, process information. P: Pool Technician Interventions: pt advised to contact [facility] pharmacy today or early tomorrow if BS remain above 300. Reinforce Self Management Action Plan established at previous visit. Reviewed HF symptom monitoring: -Weigh self daily in am, post-void and record -Do not add salt to food, avoid foods high in sodium -Limit fluids to 2 liters per day -Report the following: ->3 lb weight gain in one day or 5 lbs in a week to PCP -increased edema in feet, abdomen or hands -increased SOB and cough, especially if at night -increased fatigue or vertigo DPT-increase Lasix Reinforced safety education / fall prevention PCP Notified of enrollment in CM/HM program: Yes SNP Member? No Re-evaluation of plan of care and progress towards goals achievement:aware of s/s needing reported.Aware of DPT Plan to call patient in 3 months to reassess and update plan of care, instructed to call Pool Technician or Primary Care Provider with change in symptoms or as needed before next follow-up, verbalizes understanding and agrees with plan. Frances Nicholson RN Outpatient Pool Technician documented in this encounter Plan of Treatment Upcoming Encounters Date Type Specialty Care Team Description 05/18/2019 Pharmacy Pharmacy [facility] [place] [address] [id number] 06/15/2019 Office Visit Cardiology Marjorie Powell PA-C [address] [address] [phone] 07/10/2019 Office Visit Sleep Disorders Celsa Tafoya CRNP [address] [address] [phone] Health Maintenance Due Date Last Done Comments PAP SMEAR-EVERY 3 YRS,AGES 21-65 05/11/2016 05/11/2013, 03/01/2008, 10/19/2006, Additional history exists CKD PHOS USE SMARTSET 86812 12/29/2018 04/01/2018, 08/26/2009, 08/25/2009, Additional history exists Influenza Vaccine (FLU shot) (#1) 2019 06/12/2018, 06/12/2018, 07/14/2017, Additional history exists BREAST CANCER SCREENING DISCUSSION YEARLY AGES 40-75 06/23/2019 06/23/2018, 05/09/2015, 07/12/2014, Additional history exists CKD GFR USE SMARTSET 62428 09/13/201903/14, 02/26/2019, 01/12/2019, Additional history exists DIABETES-HGBA1C EVERY 6 MONTHS 09/13/2019 03/14/2019, 09/27/2018, 05/01/2018, Additional history exists DIABETES-FOOT EXAM 01/02/2020 01/01/2019, 0 12/29/2017, 10/21/2016, Additional history exists CKD HGB USE SMARTSET 14467 02/27/202002/26, 12/23/2018, 12/08/2018, Additional history exists DIABETES-URINE [...] as of this encounter Visit Diagnoses Diagnosis HF (heart failure) (HCC)- Primary Heart failure, unspecified Uncontrolled type 2 diabetes mellitus with stage 3 chronic kidney disease, with long-term current use of insulin (HCC) documented in this encounter Advance Directives Documents on File Type Date Recorded Patient Piano Refinisher Expl anation Advanced Directive 08/22/2009 12:00 AM [...]
--- OUTSIDE RECORDS SUMMARY | 2023-06-01 05:45 | External Medical Summary ---
Author Name Unknown Address [address] [id number] Phone Organization K01:[facility] [address] [id number] Laboratory Report Ordering Provider Test Date Status LONG CAMARENA 05/07/2019 14:14:00 Final Observation Date Value Abnormality Reference Status Troponin T 05/07/2019 21:52 28 Above high normal 0-14 Final Performing Location [facility] [address] [facility] [address]
--- OUTSIDE RECORDS SUMMARY | 2023-06-01 05:45 | External Medical Summary | Summary of Care ---
Author Name Unknown Organization [place] [address] Care Team Providers Care Distribution Engineering Technologist Name Role Phone Kevin Whiteside DO Primary Care Provider Reason for Visit * Reason Comments Acute body/muscle aches, d ull headache, joint pain, fatigue x4 days Encounter Details Date Type Department Care Team Description 05/07/2019 Office Visit [facility] [address] [facility] [place] [address] Kevin Whiteside DO [address] [facility] [place] [address] [phone] Uncontrolled type 2 diabetes mellitus with stage 3 chronic kidney disease, with long-term current use of insulin ([facility]; Type 2 diabetes mellitus with hemoglobin A1c goal of 7.0%-8.0% ([facility]); Body mass index (BMI) of 50.0 to 59.9 in adult ([facility]); Mild episode of recurrent major depressive disorder ([facility]); Dysuria; Malaise and fatigue Allergies Active Allergy Reactions Severity Noted Date Comments Heparin 09/04/2009 Heparin Induced Thrombocytopenia Empagliflozin Other (Please comment) Medium 05/17/2018 3 yeast infections in 6 weeks after starting Morphine And Related 09/16/1997 Hallucinations Tetanus Toxoid Other (Please comment) 06/15/2011 Passed out documented as of this encounter (statuses as of 05/07/2019) Medications Medication Sig Dispensed Refills Start Date [...] 5 01/13/20 19 Active Vitamin D, Ergocalciferol, 96276 units CapsuleIndications :Vitamin D deficiency Take one capsule by mouth once a week 13 Cap 0 01/14/20 19 Active Blood Glucose Monitoring Suppl (Tunessence ULTRA 2) w/Device KIT Use to test BG values 1 Kit 0 01/27/20 19 Active insulin aspart (NOVOLOG FLEXPEN) 100 UNIT/ML SOPN inject 25 units with breakfast, 20 units with lunch and 30 units with dinner plus sliding scale up to 150 units per day. 30 mL 4 01/27/20 19 Active levothyroxine (LEVOXYL) 25 MCG [...] Box Dosing Unit 11 02/27/20 19 Active furosemide (LASIX) 40 MG TabletIndications: Chronic diastolic congestive heart failure (HCC) Take 1.5 Tabs by mouth 2 times a day. 270 Tab 3 03/07/20 19 Active rOPINIRole (REQUIP) 2 MG TabletIndications: [...] daily 3 Vial 12 03/14/20 19 Active Insulin Degludec (TRESIBA FLEXTOUCH) 200 UNIT/ML SOPNIndications:Ty [...] as directed 72 mL 3 03/22/20 19 Active traZODone (DESYREL) 50 MG Tablet Take 1 Tab by mouth at bedtime. 30 Tab 5 04/04/20 19 Active Semaglutide (OZEMPIC) 0.25 or 0.5 MG/DOSE SOPN Inject 0.25 mg once weekly for 2 weeks and then 0.50 mg weekly 1 Pre-filled Pen Syringe Dosing Unit 5 04/18/20 Active Glucose Blood (ONETOUCH ULTRA BLUE) STRP Check sugars 3-4 times daily 400 Strip 2 04/21/20 Active oxygen GASIndications:ELISSA (obstructive sleep apnea) 2 LPM bled through CPAP 11 cwp during all periods of sleep. 1 Each 0 04/24/20 Active Ferrous Sulfate (IRON) 325 (65 Fe) MG TABS Take 1 tablet by mouth daily to every other day based on tolerance. Take with food, juice or vitamin C. 30 Tab 5 04/27/20 Active Magnesium Oxide 400 (241.3 mg) Tablet Take 400 mg by mouth every other day. 0 04/12/20 19 Active MAG64 64 MG TBEC Take 64 mg by mouth 2 times a day. 0 06/10/20 18 019 Discontinued documented as of this encounter (statuses as of 05/07/2019) Active Problems Problem Noted Date Other atherosclerosis of [place] arteries of extremities, left leg 02/26/2019 Impetigo [...] 10/14/2014 Overview: ICD-10 update of inactive term Bison filter in place 08/19/2014 History of pulmonary [...] as of this encounter (statuses as of 05/07/2019) Resolved Problems Problem Noted Date Resolved Date [...] as of this encounter (statuses as of 05/07/2019) Immunizations Name Administration Dates Next Due Pneumococcal [...] Reading Time Taken Comments Blood Pressure 124/70 05/07/2019 1:29 PM EDT Pulse 100 05/07/2019 1:29 PM EDT Temperature 36.7 C (98.1 F) 05/07/2019 1:29 PM ED T Respiratory Rate 24 05/07/2019 1:29 PM EDT Oxygen Saturation 93% 05/07/2019 1:29 PM EDT on 2L via NC Inhaled Oxygen Concentration - - Weight 152.4 kg (336 lb) 05/07/2019 1:29 PM EDT Height - - Body Mass Index 55.91 01/23/2019 3:50 PM EDT documented in this encounter Progress Notes * Kevin Whiteside, DO - 05/07/2019 1:42 PM EDT Nursing Notes: Dominick L Alisia, CHUYITA 05/07/19 1332 Signed The patient has been properly identified by confirmation of name and date of . Chief Complaint Patient presents with Acute body/muscle aches, dull headache, joint pain, fatigue x4 days ASSESSMENT/PLAN: 1. Uncontrolled type 2 diabetes mellitus with stage 3 chronic kidney disease, with long-term current use of insulin ([facility]) Recently titrated up and insulin, will check potassium to make sure that those levels are stable, but urine shows no sign of ketosis. - BASIC METAB PANEL, BMP; Future 2. Type 2 diabetes mellitus with hemoglobin A1c goal of 7.0%-8.0% ([facility]) - BASIC METAB PANEL, BMP; Future 3. Body mass index (BMI) of 50.0 to 59.9 in adult ([facility]) Educated 4. Mild episode of recurrent major depressive disorder ([facility]) Stable, continue current medication 5. Dysuria No sign of UTI on urine dip. - ROUTINE URINALYSIS 6. Malaise and fatigue Will check BMP and troponin, at this point looking for Allied iron is as far as the cause for her recent increase in fatigue and malaise. Possible that her potassium is still out of the realm of normal and if so will need to adjust medications such as her potassium-sparing diuretic. HPI: Stephanie Camp is a 64 year old female who: Presents today with fatigue, malaise, muscle aches, pain. No increase in SOB, no increase in AVENDAÑO. No chest pain, no leg pain. Vague lower abdominal pain with dysuria. Hx of UTIs that have presented like this in past. Recently titrated up on insulin. ROS: CONSTITUTIONAL: no weight loss, no fevers, no sweats HEENT: no change in vision or hearing, no congestion, no sore throat CARDIAC: no chest pain, no palpitations, no orthopnea, no AVENDAÑO, no syncope RESP: no wheezing and no SOB GI: no pain, no NVDC, no melena/hematochezia SKIN: no rashes MSK: + all over significant joint or muscle pain and no swelling : + dysuria, no discharge NEURO: no memory loss, no numbness PSYCH: no SI/HI PHYSICAL EXAMINATION: BP 124/70 | Pulse 100 | Temp (Src) 98.1 (Tympanic) | Resp 24 | Wt 336 lbs (152.409kg) | BMI 55.91 kg/m | BSA 2.64 m | SaO2 93[on 2L via NC[% | LMP 03/11/2003 GENERAL: alert, healthy, no [...] auscultation bilaterally. No wheezing/rales/rhonchi ABDOMEN: abdomen soft, mild lower quadrant-tender without rebound, normal bowel sounds and no masses or organomegaly SKIN: skin color, texture, turgor are normal, no rashes or significant lesions EXTREMITIES: no joint deformities, effusion, or inflammation, no edema, no clubbing, no cyanosis, Full ROM, Pulses Intact, Strength equal bilaterally NEURO: alert & oriented x 3 with fluent speech, no focal motor/sensory deficits, gait normal, reflexes normal and symmetric MSK: Myofascial pain Patient Active Problem List Diagnosis Code Primary [...] [facility]) E11.9 Fibromyalgia M79.7 Abnormality of gait R26.9 Restless legs syndrome G25.81 Gastroesophageal reflux disease with esophagitis K21.0 Uncontrolled type 2 diabetes mellitus with stage 3 chronic kidney disease, with long-term current use of insulin ([facility]) E11.22, E11.65, N18.3, Z79.4 Body mass index (BMI) of 50.0 to 59.9 in adult ([facility]) Z68.43 Controlled substance agreement signed Z79.899 Chronic diastolic congestive heart failure ([facility]) I50.32 Thoracic back pain M54.6 Mild episode of recurrent major depressive disorder ([facility]) F33.0 Impetigo L01.00 Lumbar radiculopathy M54.16 Other atherosclerosis of [place] arteries of extremities, left leg ([facility]) I70.292 Past Medical History: Diagnosis Date ELSIE (acute kidney injury) ([facility]) 06/12/2018 Allergic rhinitis due to other allergen Backache Diverticulosis of colon 01/28/06 DM type 2, not at goal (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) 06/12/2018 History of pulmonary embolus (PE) 07/16/2014 HTN, goal below 140/90 Obesity, BMI not known Perforation of intestine ([facility]) 1996 COLON -- 1996 Pneumonia in aspergillosis(484.6) 09/14/2009 Spontaneous pneumothorax 09/14/2009 Statin intolerance 07/16/2014 Type 2 diabetes mellitus with hemoglobin A1c goal of 7.0%-8.0% ([facility]) 10/14/2014 ICD-10 update of inactive term Vaginal karmen 07/13/2018 Past Surgical History: Procedure Laterality Date ARTHROPLASTY KNEE TOTAL Right 07/24/14 R COLONOSCOPY, DIAGNOSTIC (RECTUM) 02/18/2016 normal, repeat 10 yrs/[facility] COLONOSCOPY, GI REFERRAL OP 01/28/06 diverticulosis--repeat 10 years INCISION OF [place], PLANNED 06/03/2011 TRACHEOSTOMY PLANNED performed by DANNY HOLDER at [place] [facility] [place] KNEE ARTHROSCOPY/DEBRIDEMENT 07/[address] PERMANENT GASTROSTOMY TUBE 09/06/09 GASTROSTOMY WITH CONSTUCTION GASTRIC TUBE performed by AMADOU NUNEZ at OR [facility] [place] REMOVAL OF THYROID GLAND 06/15/2011 THYROIDECTOMY INCLUDING SUBSTERNAL THYROID CERVICAL APPROACH performed by DANNY HOLDER at OR [facility] [place] REMOVE GALLBLADDER 09/06/09 CHOLECYSTECTOMY performed by AMADOU NUNEZ at OR [facility] [place] REPAIR RECURRENT INCISIONAL [...] 400 mg by mouth every other day. oxygen GAS 2 LPM bled through CPAP 11 cwp during all periods of sleep. 1 Each 0 Glucose Blood (Tunessence ULTRA BLUE) STRP Check sugars 3-4 times [...] up to 200 units daily 3 Vial12 furosemide (LASIX) 40 MG Tablet Take 1.5 [...] 30 Tab 5 Blood Glucose Monitoring Suppl (Tunessence ULTRA 2) w/Device KIT Use to test BG values 1 Kit 0 Vitamin D, Ergocalciferol, 85427 units Capsule Take one capsule by mouth [...] 3-4 times a day. 400 Strip 3 levothyroxine (LEVOXYL) 200 MCG Tablet TAKE ONE TABLET BY MOUTH ONE TIME DAILY at least 30 minutes prior to breakfast or other meds 90 Tab 5 Nortriptyline HCl (PAMELOR) 50 MG Capsule Take 1 Cap by mouth at bedtime. 90 Cap 5 ONETOUCH DELICA LANCETS 33G MISC Check blood sugars 3-4 times daily 180 Each 5 PRILOSEC 20 MG PO CPDR one tablet daily Ferrous Sulfate (IRON) 325 (65 Fe) MG TABS Take 1 tablet by mouth daily to every other day based ontolerance. Take with food, juice or vitamin C. (Patient not taking: Reported on 05/07/2019) 30 Tab 5 Insulin Degludec (TRESIBA FLEXTOUCH) 200 UNIT/ML SOPN Inject up to 160 units subcutaneously once daily as directed (Patient not taking: Reported on 05/03/2019) 72 mL 3 clobetasol propionate (TEMOVATE) 0.05 % ointment Apply topically to affected area 2 times a day. Toaffected area for up to two weeks. 60 g 1 insulin aspart (NOVOLOG FLEXPEN) 100 UNIT/ML SOPN inject 25 units with breakfast, 20 units with lunch and 30 units with dinner plus sliding scale up to 150 units per day. (Patient not taking: Reported on 05/03/2019) 30 mL 4 cyclobenzaprine (FLEXERIL) 10 MG Tablet TAKE ONE [...] (Please comment) Passed out Kevin Whiteside DO [facility] [address] [facility] [place] [address] (This note was completed using the dictation program Fluency Direct. As such, there may be misspellings, word substitutions, or other variations that should not change the essence of the clinical content of this encounter note.If there is need for further clarification, please direct questions to the provider listed above.) documented in this encounter Nursing Notes * Dominick Tello LPN - 05/07/2019 1:29 PM EDT The patient has been properly identified by confirmation of name and date of . Chief Complaint Patient presents with Acute body/muscle aches, dull headache, joint pain, fatigue x4 days documented in this encounter Miscellaneous Notes * Addendum Note - Regina Stephens PBT - 05/07/2019 2:20 PM EDT Addended by: REGINA STEPHENS on: 05/07/2019 02:20 PM Modules accepted: Orders * Addendum Note - Dominick Tello LPN - 05/07/2019 2:18 PM EDT Addended by: DOMINICK TELLO on: 05/07/2019 02:18 PM Modules accepted: Orders documented in this encounter Plan of Treatment Upcoming Encounters Date Type Specialty Care Team Description 05/18/2019 Pharmacy Pharmacy [facility] [address] [facility] [place] [address] 06/15/2019 Office Visit Cardiology Marjorie Powell PA-C [address] [facility] [place] [address] [phone] 07/10/2019 Office Visit Sleep Disorders Celsa Tafoya CRNP [address] [place] [id number] 11/07/2019 Office Visit Family Medicine Kevin Whiteside DO [address] [place] [address] [phone] Pending Results Name Type Priority Associated Diagnoses Date /Time BASIC METAB PANEL, BMP Lab STAT Uncontrolled type 2 diabetes mellitus with stage 3 chronic kidney disease, with long-term current use of insulin (HCC) 05/07/2019 2:14 PM EDT TROPONIN T, HIGH SENSITIVITY Lab STAT Malaise and fatigue 05/07/2019 2:14 PM EDT Scheduled Orders Name Type Priority Associated Diagnoses Orde r Schedule BASIC METAB PANEL, BMP Lab STAT Uncontrolled type 2 diabetes mellitus with stage 3 chronic kidney disease, with long-term current use of insulin (HCC) Expected: 05/07/2019 (Approximate), Expires: 05/06/2020 TROPONIN T, HIGH SENSITIVITY Lab STAT Malaise and fatigue Expected: 05/07/2019 (Approximate), Expires: 05/06/2020 Health Maintenance Due Date Last Done Comments PAP SMEAR-EVERY 3 YRS,AGES 21-65 05/11/2016 05/11/2013, 03/01/2008, 10/19/2006, Additional history exists CKD PHOS USE SMARTSET 80557 12/29/2018 04/0 01/2018, 08/26/2009, 08/25/2009, Additional history exists Influenza Vaccine (FLU shot) (#1) 2019 06/12/2018, 06/12/2018, 07/14/2017, Additional history exists BREAST CANCER SCREENING DISCUSSION YEARLY AGES 40-75 06/23/2019 06/23/2018, 05/09/2015, 07/12/2014, Additional history exists CKD GFR USE SMARTSET 27820 09/13/201903/14, 02/26/2019, 01/12/2019, Additional history exists DIABETES-HGBA1C EVERY 6 MONTHS 09/13/2019 03/14/2019, 09/27/2018, 05/01/2018, Additional history exists DIABETES-FOOT EXAM 01/02/2020 01/01/2019, 0 12/29/2017, 10/21/2016, Additional history exists CKD HGB USE SMARTSET 77330 02/27/202002/26, 12/23/2018, 12/08/2018, Additional history exists DIABETES-URINE [...] Name Priority Date/Time Associated Diagnosis Comments SITE DIP,DIPSTICK ONLY(35943) Routine 05/07/2019 Dysuria documented in this encounter Results * SITE DIP,DIPSTICK ONLY(75377) (05/07/2019) COLOR, UA yellow yellow - clive CLARITY, UA clear clear - clear GLUCOSE, UA neg neg - neg BILIRUBIN, UA neg neg - neg KETONE, UA neg neg - neg SPECIFIC GRAVITY 1.010 1.003 - 1.030 BLOOD, UA trace non hemolyzed(A) neg - neg PH, UA 6.5 5.0 - 7.5 PROTEIN, UA neg neg - neg UROBILINOGEN, UA normal normal - normal NITRITE, UA neg neg - neg ESTERASE, UA nega neg - neg Specimen Urine documented in this encounter Visit Diagnoses Diagnosis Uncontrolled type 2 diabetes mellitus with stage 3 chronic kidney disease, with long-term current use of insulin ([facility])- Primary Type 2 diabetes mellitus with hemoglobin A1c goal of 7.0%-8.0% (HCC) Body mass index (BMI) of 50.0 to 59.9 in adult (HCC) Mild episode of recurrent major depressive disorder (HCC) Dysuria Malaise and fatigue Other malaise and fatigue documented in this encounter Advance Directives Documents on File Type Date Recorded Patient Signal Intelligence Analyst Expl anation Advanced Directive 08/22/2009 12:00 [...]
--- OUTSIDE RECORDS SUMMARY | 2023-06-01 05:45 | External Medical Summary | Summary of Care ---
Author Name Unknown Organization [place] [address] Care Team Providers Care Digital Computer Systems Analyst Name Role Phone Kevin Whiteside Primary Care Provider Reason for Visit * Reason Comments case management Encounter Details Date Type Department Care Team Description 05/02/2019 Telephone Internal Medicine [address] [address] Frances Nicholson RN [address] [place] [address] case management Allergies Active Allergy Reactions Severity Noted Date Comments Heparin 09/04/2009 Heparin Induced Thrombocytopenia Empagliflozin Other (Please comment) Medium 05/17/2018 3 yeast infections in 6 weeks after starting Morphine And Related 09/16/1997 Hallucinations Tetanus Toxoid Other (Please comment) 06/15/2011 Passed out documented as of this encounter (statuses as of 05/02/2019) Medications Medication Sig Dispensed Refills Start Date [...] Tab 5 01/12/2019 Active Vitamin D, Ergocalciferol, 08577 units CapsuleIndications: Vitamin D deficiency Take one capsule by mouth once a week 13 Cap 0 01/13/2019 Active Blood Glucose Monitoring Suppl (BembaTOUCH ULTRA 2) w/Device KIT Use to test [...] MG TabletIndications:C hronic diastolic congestive heart failure ([facility]) Take 1.5 Tabs by mouth 2 times [...] 7.0%-8.0% ([facility]),Uncontrolled type 2 diabetes mellitus with stage 3 chronic kidney disease, with long-term current use of insulin ([facility]) Inject up to 160 units subcutaneously once [...] as of this encounter (statuses as of 05/02/2019) Active Problems Problem Noted Date Other atherosclerosis of [place] arteries of extremities, left leg 02/26/2019 Impetigo [...] as of this encounter (statuses as of 05/02/2019) Resolved Problems Problem Noted Date Resolved Date [...] as of this encounter (statuses as of 05/02/2019) Immunizations Name Administration Dates Next Due Pneumococcal [...] Telephone Encounter - Frances Nicholson RN - 05/02/2019 4:59 PM EDT Call placed to pt's phone number listed in [facility], No answer, left message on requesting return call. Frances Nicholson RN. [facility] Oil Lease Broker [phone] documented in this encounter Plan of Treatment Upcoming Encounters Date Type Specialty Care Team Description 05/18/2019 Pharmacy Pharmacy [facility] [place] [address] [place] [address] 06/15/2019 Office Visit Cardiology Marjorie Powell PA-C [address] [place] [address] [phone] 07/10/2019 Office Visit Sleep Disorders Celsa Tafoya CRNP 132 [facility] [place] [address] [phone] Health Maintenance Due Date Last Done Comments PAP SMEAR-EVERY 3 YRS,AGES 21-65 05/11/2016 05/11/2013, 03/01/2008, 10/19/2006, Additional history exists CKD PHOS USE SMARTSET 91818 12/29/2018 04/0 01/2018, 08/26/2009, 08/25/2009, Additional history exists Influenza Vaccine (FLU shot) (#1) 2019 06/12/2018, 06/12/2018, 07/14/2017, Additional history exists BREAST CANCER SCREENING DISCUSSION YEARLY AGES 40-75 06/23/2019 06/23/2018, 05/09/2015, 07/12/2014, Additional history exists CKD GFR USE SMARTSET 13697 09/13/201903/14, 02/26/2019, 01/12/2019, Additional history exists DIABETES-HGBA1C EVERY 6 MONTHS 09/13/2019 03/14/2019, 09/27/2018, 05/01/2018, Additional history exists DIABETES-FOOT EXAM 01/02/2020 01/01/2019, 0 12/29/2017, 10/21/2016, Additional history exists CKD HGB USE SMARTSET 24534 02/27/202002/26, 12/23/2018, 12/08/2018, Additional history exists DIABETES-URINE [...] Documents on File Type Date Recorded Patient Insulator Apprentice Expl anation Advanced Directive 08/22/2009 12:00 [...]
--- OUTSIDE RECORDS SUMMARY | 2023-06-01 05:45 | External Medical Summary | Summary of Care ---
Author Name Unknown Organization [place] [address] Care Team Providers Care Licensed Home Inspector Name Role Phone Kevin Whiteside Primary Care Provider Encounter Details Date Type Department Care Team Description 04/23/2019 Scan Encounter Sleep Disorders, [facility] [address] [facility] [place] [address] [facility] [address] <No scans attached> Allergies Active Allergy Reactions Severity Noted Date Comments Heparin 09/04/2009 Heparin Induced Thrombocytopenia Empagliflozin Other (Please comment) Medium 05/17/2018 3 yeast infections in 6 weeks after starting Morphine And Related 09/16/1997 Hallucinations Tetanus Toxoid Other (Please comment) 06/15/2011 Passed out documented as of this encounter (statuses as of 05/01/2019) Medications Medication Sig Dispensed Refills Start Date [...] Tab 5 01/12/2019 Active Vitamin D, Ergocalciferol, 30399 units CapsuleIndications: Vitamin D deficiency Take one capsule by mouth once a week 13 Cap 0 01/13/2019 Active Blood Glucose Monitoring Suppl (NeuroPhage PharmaceuticalsTOUCH ULTRA 2) w/Device KIT Use to [...] MG TabletIndications:C hronic diastolic congestive heart failure ([facility]) Take 1.5 Tabs by mouth 2 times [...] hemoglobin A1c goal of 7.0%-8.0% ([facility]),Uncontrolled type 2 diabetes mellitus with stage 3 chronic kidney disease, with long-term current use of insulin ([facility]) Inject up to 160 units subcutaneously once [...] as of this encounter (statuses as of 05/01/2019) Active Problems Problem Noted Date Other atherosclerosis of [place] arteries of extremities, left leg 02/26/2019 Impetigo [...] as of this encounter (statuses as of 05/01/2019) Resolved Problems Problem Noted Date Resolved Date [...] as of this encounter (statuses as of 05/01/2019) Immunizations Name Administration Dates Next Due Pneumococcal [...] Care Team Description 05/18/2019 Pharmacy Pharmacy [facility] [place] [address] [place] [address] 06/15/2019 Office Visit Cardiology Marjorie Powell PA-C [address] [place] [address] [phone] 07/10/2019 Office Visit Sleep Disorders Celsa Tafoya CRNP [address] [place] [address] [phone] Health Maintenance Due Date Last Done Comments PAP SMEAR-EVERY 3 YRS,AGES 21-65 05/11/2016 05/11/2013, 03/01/2008, 10/19/2006, Additional history exists CKD PHOS USE SMARTSET 63571 12/29/2018 04/0 01/2018, 08/26/2009, 08/25/2009, Additional history exists Influenza Vaccine (FLU shot) (#1) 2019 06/12/2018, 06/12/2018, 07/14/2017, Additional history exists BREAST CANCER SCREENING DISCUSSION YEARLY AGES 40-75 06/23/2019 06/23/2018, 05/09/2015, 07/12/2014, Additional history exists CKD GFR USE SMARTSET 30114 09/13/201903/14, 02/26/2019, 01/12/2019, Additional history exists DIABETES-HGBA1C EVERY 6 MONTHS 09/13/2019 03/14/2019, 09/27/2018, 05/01/2018, Additional history exists DIABETES-FOOT EXAM 01/02/2020 01/01/2019, 0 12/29/2017, 10/21/2016, Additional history exists CKD HGB USE SMARTSET 76735 02/27/202002/26, 12/23/2018, 12/08/2018, Additional history exists DIABETES-URINE [...] Documents on File Type Date Recorded Patient Rust Proofer Expl anation Advanced Directive 08/22/2009 12:00 AM [...]
--- OUTSIDE RECORDS SUMMARY | 2023-06-01 05:45 | External Medical Summary | Summary of Care ---
Author Name Unknown Organization [place] [address] Care Team Providers Care Pen Rider Name Role Phone Kevin Whiteside DO Primary Care Provider Reason for Referral * Evaluate & Treat - Unlimited Visits (Within 3 days (urgent)) Status Reason Specialty Diagnoses / Procedures Referred By Contact Referred To Contact Authorized Specialty Services Required Nephrology Diagnoses Uncontrolled type 2 diabetes mellitus with stage 3 chronic kidney disease, with long-term current use of insulin ([facility]) Body mass index (BMI) of 50.0 to 59.9 in adult ([facility]) Chronic kidney disease (CKD) stage G3b/A3, moderately decreased glomerular filtration rate (GFR) between 30-44 mL/min/1.73 square meter and albuminuria creatinine ratio greater than 300 mg/g ([facility]) Kevin Whiteside DO [address] [address] Encounter Details Date Type Department Care Team Description 05/07/2019 Telephone Family Practice [facility] [address] [address] Kevin Whiteside DO [address] [address] [phone] Allergies Active Allergy Reactions Severity Noted Date [...] Tab 5 01/12/2019 Active Vitamin D, Ergocalciferol, 42014 units CapsuleIndications: Vitamin D deficiency Take one capsule by mouth once a week 13 Cap 0 01/13/2019 Active Blood Glucose Monitoring Suppl ([employer] ULTRA 2) w/Device KIT Use to [...] A1c goal of 7.0%-8.0% ([facility]),Uncontrolled type 2 diabetes mellitus with stage 3 chronic kidney disease, with long-term current use of insulin ([facility]) Inject up to 160 units subcutaneously [...] Problems Problem Noted Date Other atherosclerosis of [place] arteries of extremities, left leg 02/26/2019 Impetigo [...] 05/21 when you are back [place] [employer]. She is not able to get to [...] Specialty Care Team Description 05/18/2019 Pharmacy Pharmacy [facility] [place] [address] [address] 05/21/2019 Office Visit Nephrology Gia White MD [address] [address] [phone] 06/15/2019 Office Visit Cardiology Marjorie [place] PA-C [address] [address] [phone] 07/10/2019 Office Visit Sleep Disorders Celsa Tafoya CRNP [address] [place] [address] [phone] 11/07/2019 Office Visit Family Medicine Kevin Whiteside DO [address] [address] [phone] Scheduled Referrals Name Type Priority Associated Diagnoses [...] ratio greater than 300 mg/g ([facility]) Ordered: 05/07/2019 Health Maintenance Due Date Last Done Comments PAP SMEAR-EVERY 3 YRS,AGES 21-65 05/11/2016 05/11/2013, 03/01/2008, 10/19/2006, Additional history exists CKD PHOS USE SMARTSET 86751 12/29/201801/2018, 08/26/2009, 08/25/2009, Additional history exists Influenza Vaccine (FLU shot) (#1) 2019 06/12/2018, 06/12/2018, 07/14/2017, Additional history exists BREAST CANCER SCREENING DISCUSSION YEARLY AGES 40-75 06/23/2019 06/23/2018, 05/09/2015, 07/12/2014, Additional history exists DIABETES-HGBA1C EVERY 6 MONTHS 09/13/2019 03/14/2019, 09/27/2018, 05/01/2018, Additional history exists CKD GFR USE SMARTSET 05547 11/07/201905/07, 03/14/2019, 02/26/2019, Additional history exists DIABETES-FOOT EXAM 01/02/2020 01/01/2019, 0 12/29/2017, 10/21/2016, Additional history exists CKD HGB USE SMARTSET 82996 02/27/202002/26, 12/23/2018, 12/08/2018, Additional history exists DIABETES-URINE [...] ratio greater than 300 mg/g ([facility]) documented in this encounter Advance Directives Documents on File Type Date Recorded Patient Sheet Metal Erector Expl anation Advanced Directive 08/22/2009 12:00 AM [...]
--- OUTSIDE RECORDS SUMMARY | 2023-06-01 05:45 | External Medical Summary | Summary of Care ---
Author Name Unknown Organization [place] [address] Care Team Providers Care Software Sales Name Role Phone Kevin Whiteside DO [...] insulin ([facility]) Body mass index (BMI) of 50.0 to 59.9 in adult ([facility]) Chronic kidney disease (CKD) stage G3b/A3, moderately decreased glomerular filtration rate (GFR) between 30-44 mL/min/1.73 square meter and albuminuria creatinine ratio greater than 300 mg/g ([facility]) Kevin Whiteside DO [address] [address] Encounter Details Date Type Department Care Team Description 05/07/2019 Telephone Family Practice [facility] [address] [address] Kevin Whiteside DO [address] [address] [phone] Allergies Active Allergy Reactions Severity Noted Date [...] Tab 5 01/12/2019 Active Vitamin D, Ergocalciferol, 69258 units CapsuleIndications: Vitamin D deficiency Take one capsule by mouth once a week 13 Cap 0 01/13/2019 Active Blood Glucose Monitoring Suppl ([employer] ULTRA 2) w/Device KIT Use to test [...] of 7.0%-8.0% ([facility]),Uncontrolled type 2 diabetes mellitus with stage 3 chronic kidney disease, with long-term current use of insulin ([facility]) Inject up to 160 units subcutaneously once [...] Problem Noted Date Other atherosclerosis of [place] arteries of extremities, left leg 02/26/2019 Impetigo [...] Encounters Date Type Specialty Care Team Description 05/11/2019 Office Visit Nephrology Gia White MD [address] [address] [phone] 05/18/2019 Pharmacy Pharmacy [facility] [place] [address] [address] 06/15/2019 Office Visit Cardiology Marjorie Powell PA-C [address] [address] [phone] 07/10/2019 Office Visit Sleep Disorders Celsa Tafoya CRNP [address] [address] [phone] 11/07/2019 Office Visit Family Medicine Kevin Whiteside DO [address] [place] [address] [phone] Scheduled Referrals Name Type Priority Associated Diagnoses [...] Additional history exists CKD PHOS USE SMARTSET 64570 12/29/2018 04/0 01/2018, 08/26/2009, 08/25/2009, Additional history exists Influenza Vaccine (FLU shot) (#1) 2019 06/12/2018, 06/12/2018, 07/14/2017, Additional history exists BREAST CANCER SCREENING DISCUSSION YEARLY AGES 40-75 06/23/2019 06/23/2018, 05/09/2015, 07/12/2014, Additional history exists DIABETES-HGBA1C EVERY 6 MONTHS 09/13/2019 03/14/2019, 09/27/2018, 05/01/2018, Additional history exists CKD GFR USE SMARTSET 31530 11/07/201905/07, 03/14/2019, 02/26/2019, Additional history exists DIABETES-FOOT EXAM 01/02/2020 01/01/2019, 0 12/29/2017, 10/21/2016, Additional history exists CKD HGB USE SMARTSET 52390 02/27/202002/26, 12/23/2018, 12/08/2018, Additional history exists DIABETES-URINE [...] of insulin ([facility])- Primary Body mass index (BMI) of 50.0 to 59.9 in adult ([facility]) Chronic kidney disease (CKD) stage G3b/A3, moderately decreased glomerular filtration rate (GFR) between 30-44 mL/min/1.73 square meter and albuminuria creatinine ratio greater than 300 mg/g ([facility]) documented in this encounter Advance Directives Documents on File Type Date Recorded Patient Audio Visual Specialist Expl anation Advanced Directive 08/22/2009 12:00 [...]
--- OUTSIDE RECORDS SUMMARY | 2023-06-01 05:45 | External Medical Summary | Summary of Care ---
Author Name Unknown Organization [place] [address] Care Team Providers Care Gauger Delivery Name Role Phone Kevin Whiteside DO Primary Care Provider Reason for Referral * Evaluate & Treat - Unlimited Visits (Within 3 days (urgent)) Status Reason Specialty Diagnoses / Procedures Referred By Contact Referred To Contact Authorized Specialty Services Required Nephrology Diagnoses Uncontrolled type 2 diabetes mellitus with stage 3 chronic kidney disease, with long-term current use of insulin ([facility]) Body mass index (BMI) of 50.0 to 59.9 in adult ([facility]) Chronic kidney disease (CKD) stage G3b/A3, moderately decreased glomerular filtration rate (GFR) between 30-44 mL/min/1.73 square meter and albuminuria creatinine ratio greater than 300 mg/g ([facility]) Kevin Whiteside DO [address] [address] Reason for Visit * Reason Comments Advice Encounter Details Date Type Department Care Team Description 05/07/2019 Telephone Family Practice [facility] [address] [address] Kevin Whiteside DO [address] [address] [phone] Advice Allergies Active Allergy Reactions Severity Noted [...] Tab 5 01/12/2019 Active Vitamin D, Ergocalciferol, 60438 units CapsuleIndications: Vitamin D deficiency Take one capsule by mouth once a week 13 Cap 0 01/13/2019 Active Blood Glucose Monitoring Suppl (meets ULTRA 2) w/Device KIT Use to test [...] A1c goal of 7.0%-8.0% ([facility]),Uncontrolled type 2 diabetes mellitus with stage 3 chronic kidney disease, with long-term current use of insulin ([facility]) Inject up to 160 units [...] Problems Problem Noted Date Other atherosclerosis of [place] arteries of extremities, left leg 02/26/2019 [...] 10/14/2014 Overview: ICD-10 update of inactive term Pritchett filter in place 08/19/2014 History of pulmonary [...] Cullen RN - 05/08/2019 2:19 PM EDT RICK White MD * Telephone Encounter - Teri Cullen RN - 05/08/2019 9:[address] White, pt has been scheduled with you on 05/21 when you are back in [employer]. She is not able to get to [...] Specialty Care Team Description 05/18/2019 Pharmacy Pharmacy [address] [place] [address] 05/21/2019 Office Visit Nephrology Gia White MD [address] [address] [phone] 06/15/2019 Office Visit Cardiology Marjorie Powell PA-C [address] [place] [address] [phone] 07/10/2019 Office Visit Sleep Disorders Celsa Tafoya CRNP [address] [place] [address] 11/07/2019 Office Visit Family Medicine Kevin Whiteside DO [address] [place] [address] Scheduled Referrals Name Type Priority Associated Diagnoses Orde r Schedule NEPHROLOGY REFERRAL OP Referral Within 3 days (urgent) Uncontrolled type 2 diabetes mellitus with stage 3 chronic kidney disease, with long-term current use of insulin ([facility]) Body mass index (BMI) of 50.0 to 59.9 in adult ([facility]) Chronic kidney disease (CKD) stage G3b/A3, moderately decreased glomerular filtration rate (GFR) between 30-44 mL/min/1.73 square meter and albuminuria creatinine ratio greater than 300 mg/g ([facility]) Ordered: 05/07/2019 Health Maintenance Due Date Last Done Comments PAP SMEAR-EVERY 3 YRS,AGES 21-65 05/11/2016 05/11/2013, 03/01/2008, 10/19/2006, Additional history exists CKD PHOS USE SMARTSET 56699 12/29/201801/2018, 08/26/2009, 08/25/2009, Additional history exists Influenza Vaccine (FLU shot) (#1) 2019 06/12/2018, 06/12/2018, 07/14/2017, Additional history exists BREAST CANCER SCREENING DISCUSSION YEARLY AGES 40-75 06/23/2019 06/23/2018, 05/09/2015, 07/12/2014, Additional history exists DIABETES-HGBA1C EVERY 6 MONTHS 09/13/2019 03/14/2019, 09/27/2018, 05/01/2018, Additional history exists CKD GFR USE SMARTSET 28049 11/07/201905/07, 03/14/2019, 02/26/2019, Additional history exists DIABETES-FOOT EXAM 01/02/2020 01/01/2019, 0 12/29/2017, 10/21/2016, Additional history exists CKD HGB USE SMARTSET 70549 02/27/202002/26, 12/23/2018, 12/08/2018, Additional history exists DIABETES-URINE [...] Documents on File Type Date Recorded Patient Navigation Officer Expl anation Advanced Directive 08/22/2009 12:00 [...]
--- OUTSIDE RECORDS SUMMARY | 2023-06-01 05:45 | External Medical Summary | Summary of Care ---
Author Name Unknown Organization [place] [address] Care Team Providers Care Apricot Packer Name Role Phone Kevin Whiteside Primary Care Provider Reason for Visit * Reason Comments Dosage Adjustment Via Phone (anticoag Cl inic) Encounter Details Date Type Department Care Team Description 05/01/2019 Pharmacy Pharmacy, [facility] [address] [place] [address] [facility] [address] [place] [address] Uncontrolled type 2 diabetes mellitus with stage 3 chronic kidney disease, with long-term current use of insulin ([facility])*; Type 2 diabetes mellitus with hemoglobin A1c goal of 7.0%-8.0% ([facility]) Allergies Active Allergy Reactions Severity [...] Tab 5 01/12/2019 Active Vitamin D, Ergocalciferol, 49639 units CapsuleIndications: Vitamin D deficiency Take one capsule by mouth once a week 13 Cap 0 01/13/2019 Active Blood Glucose Monitoring Suppl ([employer] ULTRA 2) w/Device KIT Use to [...] MG TabletIndications:C hronic diastolic congestive heart failure ([facility]) Take 1.5 Tabs by mouth [...] hemoglobin A1c goal of 7.0%-8.0% ([facility]),Uncontrolled type 2 diabetes mellitus with stage 3 chronic kidney disease, with long-term current use of insulin ([facility]) Inject up to 160 units [...] Problems Problem Noted Date Other atherosclerosis of [place] arteries of extremities, left leg 02/26/2019 Impetigo [...] 10/14/2014 Overview: ICD-10 update of inactive term Wall filter in place 08/19/2014 History of pulmonary [...] as of this encounter Progress Notes * Dea Vega, [facility] - 05/01/2019 12:36 PM EDT Patient Phone Numbers START: Ozempic 0.25 mg weekly x 2 weeks and then 0.50 mg weekly Medtronic 630G Insulin Pump (Serial Number: [id number]) Infusion Set: SureT Insulin: Novolog Basal Rate: 3.0 units/hour Bolus: 20 units with breakfast, 20units with lunch and 20units with supper and 8 units with bedtimesnack Bolus wizard: on and using ICR: 4 ISF: 14 Blood Glucose Goals: 120-150 Active Insulin Time: 4 hours Spoke with patient via phone. She states that she was not feeing well this weekend. She has not increased her dose of Ozempic. That will be this Tuesday. She states that her BG levels have been high since the weekend. She states that she just changed her infusion site yesterday and is getting NO errors. She has been bolusing with meals. Instructed patient to bolus 10 units now. She is not going to eat a meal Will increase basal rate to 4.0 units per hour. Patient to call tomorrow if BG still does not respond Silvia Mercado RPh, Pharm D, CACP, CDE Clinical Pharmacist 05/01/2019, 12:53 PM documented in this encounter Plan of Treatment Upcoming Encounters Date Type Specialty Care Team Description 05/18/2019 Pharmacy [facility]acy [facility] [place] [address] [address] 06/15/2019 Office Visit Cardiology Marjorie Powell PA-C [address] [address] [phone] 07/10/2019 Office Visit Sleep Disorders Celsa Tafoya CRNP [address] [address] [phone] Health Maintenance Due Date Last Done Comments PAP SMEAR-EVERY 3 YRS,AGES 21-65 05/11/2016 05/11/2013, 03/01/2008, 10/19/2006, Additional history exists CKD PHOS USE SMARTSET 51146 12/29/2018 04/01/2018, 08/26/2009, 08/25/2009, Additional history exists Influenza Vaccine (FLU shot) (#1) 2019 06/12/2018, 06/12/2018, 07/14/2017, Additional history exists BREAST CANCER SCREENING DISCUSSION YEARLY AGES 40-75 06/23/2019 06/23/2018, 05/09/2015, 07/12/2014, Additional history exists CKD GFR USE SMARTSET 83559 09/13/201903/14, 02/26/2019, 01/12/2019, Additional history exists DIABETES-HGBA1C EVERY 6 MONTHS 09/13/2019 03/14/2019, 09/27/2018, 05/01/2018, Additional history exists DIABETES-FOOT EXAM 01/02/2020 01/01/2019, 0 12/29/2017, 10/21/2016, Additional history exists CKD HGB USE SMARTSET 75755 02/27/202002/26, 12/23/2018, 12/08/2018, Additional history exists DIABETES-URINE [...] on File Type Date Recorded Patient Automotive Fleet Supervisor Expl anation Advanced Directive 08/22/2009 12:00 [...]
--- OUTSIDE RECORDS SUMMARY | 2023-06-01 05:45 | External Medical Summary | Summary of Care ---
Author Name Unknown Organization [place] [address] Care Team Providers Care Padded Products Inspector Trimmer Name Role Phone Kevin Whiteside DO Primary Care Provider Reason for Visit * Reason Comments Acute body/muscle aches, d ull headache, joint pain, fatigue x4 days Encounter Details Date Type Department Care Team Description 05/07/2019 Office Visit [facility] [address] [facility] [place] [address] Kevin Whiteside DO 132 [facility] [place] [address] [phone] Uncontrolled type 2 diabetes mellitus with stage 3 chronic kidney disease, with long-term current use of insulin ([facility]; Type 2 diabetes mellitus with hemoglobin A1c goal of 7.0%-8.0% ([facility]); Body mass index (BMI) of 50.0 to 59.9 in adult ([facility]); Mild episode of recurrent major depressive disorder ([facility]); Dysuria; Malaise and fatigue Allergies Active Allergy [...] 5 01/13/20 19 Active Vitamin D, Ergocalciferol, 94948 units CapsuleIndications :Vitamin D deficiency Take one capsule by mouth once a week 13 Cap 0 01/14/20 19 Active Blood Glucose Monitoring Suppl (Grouply ULTRA 2) w/Device KIT Use to test [...] 7.0%-8.0% ([facility]),Uncontrolled type 2 diabetes mellitus with stage 3 chronic kidney disease, with long-term current use of insulin ([facility]) Inject up to 160 units subcutaneously once [...] 10/14/2014 Overview: ICD-10 update of inactive term [place] filter in place 08/19/2014 History of pulmonary [...] ([facility]) Recently titrated up and insulin, will check potassium to make sure that those levels are stable, but urine shows no sign of ketosis. - BASIC METAB PANEL, BMP; Future 2. Type 2 diabetes mellitus with hemoglobin A1c goal of 7.0%-8.0% ([facility]) - BASIC METAB PANEL, BMP; Future 3. Body mass index (BMI) of 50.0 to 59.9 in adult ([facility]) Educated 4. Mild episode of recurrent major depressive disorder ([facility]) Stable, continue current medication 5. Dysuria No [...] ([facility]) E11.9 Fibromyalgia M79.7 Abnormality of gait R26.9 Restless legs syndrome G25.81 Gastroesophageal reflux disease with esophagitis K21.0 Uncontrolled type 2 diabetes mellitus with stage 3 chronic kidney disease, with long-term current use of insulin ([facility]) E11.22, E11.65, N18.3, Z79.4 Body mass index (BMI) of 50.0 to 59.9 in adult ([facility]) Z68.43 Controlled substance agreement signed Z79.899 Chronic diastolic congestive heart failure ([facility]) I50.32 Thoracic back pain M54.6 Mild episode of recurrent major depressive disorder ([facility]) F33.0 Impetigo L01.00 Lumbar radiculopathy M54.16 Other atherosclerosis of [place] arteries of extremities, left leg ([facility]) I70.292 Past Medical History: Diagnosis Date ELSIE (acute kidney injury) ([facility]) 06/12/2018 Allergic rhinitis due to other allergen Backache Diverticulosis of colon 01/28/06 DM type 2, not at goal ([facility]) ELLIE (generalized anxiety disorder) 09/13/2009 Goiter [address] filter in place 08/19/2014 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[facility]) 08/22/2009 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[facility]) 06/12/2018 History of pulmonary embolus (PE) 07/16/2014 HTN, goal below 140/90 Obesity, BMI not known Perforation of intestine ([facility]) 1996 COLON -- 1996 Pneumonia in aspergillosis(484.6) 09/14/2009 Spontaneous pneumothorax 09/14/2009 Statin intolerance 07/16/2014 Type 2 diabetes mellitus with hemoglobin A1c goal of 7.0%-8.0% ([facility]) 10/14/2014 ICD-10 update of inactive term Vaginal karmen 07/13/2018 Past Surgical History: Procedure Laterality Date ARTHROPLASTY KNEE TOTAL Right 07/24/14 R COLONOSCOPY, DIAGNOSTIC (RECTUM) 02/18/2016 normal, repeat 10 yrs/[facility] COLONOSCOPY, GI REFERRAL OP 01/28/06 diverticulosis--repeat 10 years INCISION OF WINDPIPE, PLANNED 06/03/2011 TRACHEOSTOMY PLANNED performed by DANNY HOLDER at OR [facility] KNEE ARTHROSCOPY/DEBRIDEMENT 07/[address] PERMANENT GASTROSTOMY TUBE 09/06/09 GASTROSTOMY WITH CONSTUCTION GASTRIC TUBE performed by AMADOU NUNEZ at OR [facility] REMOVAL OF THYROID GLAND 06/15/2011 THYROIDECTOMY INCLUDING SUBSTERNAL THYROID CERVICAL APPROACH performed by DANNY HOLDER at OR [facility] REMOVE GALLBLADDER 09/06/09 CHOLECYSTECTOMY performed by AMADOU NUNEZ at OR [facility] REPAIR RECURRENT INCISIONAL HERNIA 1998 REVISION OF COLOSTOMY, SIMPLE 1998 SUTURE, LARGE INTESTINE W/COLOSTOMY 1996 perforation R colon with colostomy VENA CAVA FILTER/LIGATION/CLIP 08/19/09 Frank filter placement through the right femoral 08/19/[address] [facility] Current Outpatient Medications Medication Sig Dispense Refill Magnesium Oxide 400 (241.3 mg) Tablet Take 400 mg by mouth every other day. oxygen GAS 2 LPM bled through CPAP 11 cwp during all periods of sleep. 1 Each 0 Glucose Blood (Grouply ULTRA BLUE) STRP Check sugars 3-4 times [...] 30 Tab 5 Blood Glucose Monitoring Suppl (Grouply ULTRA 2) w/Device KIT Use to test BG values 1 Kit 0 Vitamin D, Ergocalciferol, 92964 units Capsule Take one capsule by mouth [...] (Please comment) Passed out Kevin Whiteside DO [facility] [address] [place] [address] (This note was completed using the dictation [...] encounter Miscellaneous Notes * Addendum Note - Dominick Tello LPN - 05/07/2019 2:18 PM EDT Addended by: DOMINICK TELLO on: 05/07/2019 02:18 PM Modules accepted: Orders documented in this encounter Plan of Treatment Upcoming Encounters Date Type Specialty Care Team Description 05/18/2019 Pharmacy Pharmacy [facility] [address] [place] [address] 06/15/2019 Office Visit Cardiology Marjorie Powell PA-C [address] [place] [address] [phone] 07/10/2019 Office Visit Sleep Disorders Celsa Tafoya CRNP [address] [place] [address] [phone] 11/07/2019 Office Visit Family Medicine Kevin Whiteside DO [address] [place] [address] [phone] Pending Results Name Type Priority Associated Diagnoses [...] Additional history exists CKD PHOS USE SMARTSET 15527 12/29/2018 04/01/2018, 08/26/2009, 08/25/2009, Additional history exists Influenza Vaccine (FLU shot) (#1) 2019 06/12/2018, 06/12/2018, 07/14/2017, Additional history exists BREAST CANCER SCREENING DISCUSSION YEARLY AGES 40-75 06/23/2019 06/23/2018, 05/09/2015, 07/12/2014, Additional history exists CKD GFR USE SMARTSET 33574 09/13/201903/14, 02/26/2019, 01/12/2019, Additional history exists DIABETES-HGBA1C EVERY 6 MONTHS 09/13/2019 03/14/2019, 09/27/2018, 05/01/2018, Additional history exists DIABETES-FOOT EXAM 01/02/2020 01/01/2019, 0 12/29/2017, 10/21/2016, Additional history exists CKD HGB USE SMARTSET 33105 02/27/202002/26, 12/23/2018, 12/08/2018, Additional history exists DIABETES-URINE [...] Priority Date/Time Associated Diagnosis Comments SITE DIP,DIPSTICK ONLY(11027) Routine 05/07/2019 Dysuria documented in this encounter Results * SITE DIP,DIPSTICK ONLY(05372) (05/07/2019) COLOR, UA yellow yellow - clive [...] insulin ([facility])- Primary Type 2 diabetes mellitus with hemoglobin A1c goal of 7.0%-8.0% ([facility]) Body mass index (BMI) of 50.0 to 59.9 in adult ([facility]) Mild episode of recurrent major depressive disorder ([facility]) Dysuria Malaise and fatigue Other malaise and fatigue documented in this encounter Advance Directives Documents on File Type Date Recorded Patient Hydrogenation Still Operator Expl anation Advanced Directive 08/22/2009 12:00 [...]
--- OUTSIDE RECORDS SUMMARY | 2023-06-01 05:45 | External Medical Summary | Summary of Care ---
Author Name Unknown Organization [place] [address] Care Team Providers Care Grades 9 Thru 12 Visiting Teacher Name Role Phone Kevin Whiteside DO Primary Care Provider Reason for Referral * Evaluate & Treat - Unlimited Visits (Within 3 days (urgent)) Status Reason Specialty Diagnoses / Procedures Referred By Contact Referred To Contact Authorized Specialty Services Required Nephrology Diagnoses Uncontrolled type 2 diabetes mellitus with stage 3 chronic kidney disease, with long-term current use of insulin ([facility]) Body mass index (BMI) of 50.0 to 59.9 in adult ([facility]) Chronic kidney disease (CKD) stage G3b/A3, moderately decreased glomerular filtration rate (GFR) between 30-44 mL/min/1.73 square meter and albuminuria creatinine ratio greater than 300 mg/g ([facility]) Kevin Whiteside DO [address] [place] [address] Encounter Details Date Type Department Care Team Description 05/07/2019 Telephone Family Practice [facility] [address] [place] [address] [address] Kevin Whiteside DO [address] [place] [address] [phone] Allergies Active Allergy Reactions Severity Noted Date [...] Tab 5 01/12/2019 Active Vitamin D, Ergocalciferol, 86596 units CapsuleIndications: Vitamin D deficiency Take one capsule by mouth once a week 13 Cap 0 01/13/2019 Active Blood Glucose Monitoring Suppl (Liquid5 ULTRA 2) w/Device KIT Use to test [...] A1c goal of 7.0%-8.0% ([facility]),Uncontrolled type 2 diabetes mellitus with stage 3 chronic kidney disease, with long-term current use of insulin ([facility]) Inject up to 160 units subcutaneously once [...] Problems Problem Noted Date Other atherosclerosis of [place] arteries of [...] Specialty Care Team Description 05/18/2019 Pharmacy Pharmacy [facility] [address] [place] [address] 05/21/2019 Office Visit Nephrology Gia White MD [address] [place] [address] [phone] 06/15/2019 Office Visit Cardiology Marjorie Powell PA-C [address] [place] [address] [phone] 07/10/2019 Office Visit Sleep Disorders Celsa Tafoya CRNP [address] [place] [address] [phone] 11/07/2019 Office Visit Family Medicine Kevin Whiteside DO [address] [place] [address] [phone] Scheduled Referrals Name Type Priority Associated Diagnoses [...] ratio greater than 300 mg/g ([facility]) Ordered: 05/07/2019 Health Maintenance Due Date Last Done Comments PAP SMEAR-EVERY 3 YRS,AGES 21-65 05/11/2016 05/11/2013, 03/01/2008, 10/19/2006, Additional history exists CKD PHOS USE SMARTSET 40285 12/29/201801/2018, 08/26/2009, 08/25/2009, Additional history exists Influenza Vaccine (FLU shot) (#1) 2019 06/12/2018, 06/12/2018, 07/14/2017, Additional history exists BREAST CANCER SCREENING DISCUSSION YEARLY AGES 40-75 06/23/2019 06/23/2018, 05/09/2015, 07/12/2014, Additional history exists DIABETES-HGBA1C EVERY 6 MONTHS 09/13/2019 03/14/2019, 09/27/2018, 05/01/2018, Additional history exists CKD GFR USE SMARTSET 79786 11/07/201905/07, 03/14/2019, 02/26/2019, Additional history exists DIABETES-FOOT EXAM 01/02/2020 01/01/2019, 0 12/29/2017, 10/21/2016, Additional history exists CKD HGB USE SMARTSET 01794 02/27/202002/26, 12/23/2018, 12/08/2018, Additional history exists DIABETES-URINE [...] ratio greater than 300 mg/g ([facility]) documented in this encounter Advance Directives Documents on File Type Date Recorded Patient Senior Program Manager Expl anation Advanced Directive 08/22/2009 12:00 [...]
--- OUTSIDE RECORDS SUMMARY | 2023-06-01 05:45 | External Medical Summary | Summary of Care ---
Author Name Unknown Organization [place] [address] Care Team Providers Care Manager Unit Name Role Phone Kevin Whiteside DO Primary Care Provider Reason for Visit * Reason Comments Acute body/muscle aches, d ull headache, joint pain, fatigue x4 days Encounter Details Date Type Department Care Team Description 05/07/2019 Office Visit [facility] [address] [facility] [place] [address] Kevin Whiteside DO [address] [facility] [place] [address] [phone] Uncontrolled type 2 diabetes mellitus with stage 3 chronic kidney disease, with long-term current use of insulin ([facility])*; Type 2 diabetes mellitus with hemoglobin A1c goal of 7.0%-8.0% ([facility]); Body mass index (BMI) of 50.0 to 59.9 in adult ([facility]); Mild episode of recurrent major depressive disorder ([facility]); Dysuria; Malaise and fatigue Allergies Active Allergy [...] 5 01/13/20 19 Active Vitamin D, Ergocalciferol, 39553 units CapsuleIndications :Vitamin D deficiency Take one capsule by mouth once a week 13 Cap 0 01/14/20 19 Active Blood Glucose Monitoring Suppl (BView ULTRA 2) w/Device KIT Use to test [...] A1c goal of 7.0%-8.0% ([facility]),Uncontrolled type 2 diabetes mellitus with stage 3 chronic kidney disease, with long-term current use of insulin ([facility]) Inject up to 160 units subcutaneously [...] Problems Problem Noted Date Other atherosclerosis of [place] arteries of extremities, left leg 02/26/2019 Impetigo [...] 10/14/2014 Overview: ICD-10 update of inactive term Gill filter in place 08/19/2014 History of pulmonary [...] use of insulin ([facility]) Recently titrated up and insulin, will check potassium to make sure that those levels are stable, but urine shows no sign of ketosis. - BASIC METAB PANEL, BMP; Future 2. Type 2 diabetes mellitus with hemoglobin A1c goal of 7.0%-8.0% ([facility]) - BASIC METAB PANEL, BMP; Future 3. Body mass index (BMI) of 50.0 to 59.9 in adult ([facility]) Educated 4. Mild episode of recurrent major depressive disorder ([facility]) Stable, continue current medication 5. Dysuria No [...] goal of 7.0%-8.0% ([facility]) E11.9 Fibromyalgia M79.7 Abnormality of gait R26.9 Restless legs syndrome G25.81 Gastroesophageal reflux disease with esophagitis K21.0 Uncontrolled type 2 diabetes mellitus with stage 3 chronic kidney disease, with long-term current use of insulin ([facility]) E11.22, E11.65, N18.3, Z79.4 Body mass index (BMI) of 50.0 to 59.9 in adult ([facility]) Z68.43 Controlled substance agreement signed Z79.899 Chronic diastolic congestive heart failure ([facility]) I50.32 Thoracic back pain M54.6 Mild episode of recurrent major depressive disorder ([facility]) F33.0 Impetigo L01.00 Lumbar radiculopathy M54.16 Other atherosclerosis of [place] arteries of extremities, left leg ([facility]) I70.292 Past Medical History: Diagnosis Date ELSIE (acute kidney injury) ([facility]) 06/12/2018 Allergic rhinitis due to other allergen Backache Diverticulosis of colon 01/28/06 DM type 2, not at goal ([facility]) ELLIE (generalized anxiety disorder) 09/13/2009 [address] filter in place 08/19/2014 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[facility]) 08/22/2009 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[facility]) 06/12/2018 History of pulmonary embolus (PE) 07/16/2014 HTN, goal below 140/90 Obesity, BMI not known Perforation of intestine ([facility]) 1996 COLON -- 1996 Pneumonia in aspergillosis(484.6) 09/14/2009 Spontaneous pneumothorax 09/14/2009 Statin intolerance 07/16/2014 Type 2 diabetes mellitus with hemoglobin A1c goal of 7.0%-8.0% ([facility]) 10/14/2014 ICD-10 update of inactive term Vaginal karmen 07/13/2018 Past Surgical History: Procedure Laterality Date ARTHROPLASTY KNEE TOTAL Right 07/24/14 R COLONOSCOPY, DIAGNOSTIC (RECTUM) 02/18/2016 normal, repeat 10 yrs/[facility] COLONOSCOPY, GI REFERRAL OP 01/28/06 diverticulosis--repeat 10 years INCISION OF [place], PLANNED 06/03/2011 TRACHEOSTOMY PLANNED performed by DANNY HOLDER at OR [facility] [place] [place] KNEE ARTHROSCOPY/DEBRIDEMENT 07/[address] PERMANENT GASTROSTOMY TUBE 09/06/09 GASTROSTOMY WITH CONSTUCTION GASTRIC TUBE performed by AMADOU NUNEZ at OR [facility] [place] [place] REMOVAL OF THYROID GLAND 06/15/2011 THYROIDECTOMY [...] femoral 08/19/[address] Lerma at [facility] Current Outpatient Medications Medication Sig Dispense Refill Magnesium Oxide 400 (241.3 mg) Tablet Take 400 mg by mouth every other day. oxygen GAS 2 LPM bled through CPAP 11 cwp during all periods of sleep. 1 Each 0 Glucose Blood (BView ULTRA BLUE) STRP Check sugars 3-4 times [...] 30 Tab 5 Blood Glucose Monitoring Suppl (BView ULTRA 2) w/Device KIT Use to test BG values 1 Kit 0 Vitamin D, Ergocalciferol, 66538 units Capsule Take one capsule by mouth [...] (Please comment) Passed out Kevin Whiteside DO [facility] [address] [facility] [place] [address] (This note was completed using the dictation [...] Specialty Care Team Description 05/18/2019 Pharmacy Pharmacy [facility] [address] [facility] [place] [address] 06/15/2019 Office Visit Cardiology Marjorie Powell PA-C [address] [facility] [place] [address] [phone] 07/10/2019 Office Visit Sleep Disorders Celsa Tafoya CRNP [address] [id number] 11/07/2019 Office Visit Family Medicine Kevin Whiteside DO [address] [place] [address] [phone] Pending Results Name Type Priority Associated Diagnoses [...] Additional history exists CKD PHOS USE SMARTSET 55456 12/29/2018 04/0 01/2018, 08/26/2009, 08/25/2009, Additional history exists Influenza Vaccine (FLU shot) (#1) 2019 06/12/2018, 06/12/2018, 07/14/2017, Additional history exists BREAST CANCER SCREENING DISCUSSION YEARLY AGES 40-75 06/23/2019 06/23/2018, 05/09/2015, 07/12/2014, Additional history exists CKD GFR USE SMARTSET 11417 09/13/201903/14, 02/26/2019, 01/12/2019, Additional history exists DIABETES-HGBA1C EVERY 6 MONTHS 09/13/2019 03/14/2019, 09/27/2018, 05/01/2018, Additional history exists DIABETES-FOOT EXAM 01/02/2020 01/01/2019, 0 12/29/2017, 10/21/2016, Additional history exists CKD HGB USE SMARTSET 11451 02/27/202002/26, 12/23/2018, 12/08/2018, Additional history exists DIABETES-URINE [...] Priority Date/Time Associated Diagnosis Comments SITE DIP,DIPSTICK ONLY(11949) Routine 05/07/2019 Dysuria documented in this encounter Results * SITE DIP,DIPSTICK ONLY(83451) (05/07/2019) COLOR, UA yellow yellow - clive [...] current use of insulin ([facility])- Primary Type 2 diabetes mellitus with hemoglobin A1c goal of 7.0%-8.0% ([facility]) Body mass index (BMI) of 50.0 to 59.9 in adult ([facility]) Mild episode of recurrent major depressive disorder ([facility]) Dysuria Malaise and fatigue Other malaise and fatigue documented in this encounter Advance Directives Documents on File Type Date Recorded Patient Fingerprint Classifier Expl anation Advanced Directive 08/22/2009 12:00 AM [...]
--- OUTSIDE RECORDS SUMMARY | 2023-06-01 05:45 | External Medical Summary ---
Author Name Unknown Address [address] [place] [address] Phone Organization K0G:[facility] [employer] [address] [place] [address] Laboratory Report Ordering Provider Test Date Status LONG CAMARENA 05/07/2019 14:14:00 Final Observation Date Value Abnormality Reference Status BUN 05/07/2019 15:16 34 Above high normal 6-20 Final Creatinine 05/07/2019 15:16 2.1 Above high normal 0.5- 1.0 Final Performing Location [facility] [employer] [address] [employer] [facility] [place] [place] [address]
--- OUTSIDE RECORDS SUMMARY | 2023-06-01 05:46 | External Medical Summary | Summary of Care ---
Author Name Unknown Organization [place] [address] Care Team Providers Care Barrel Racer Name Role Phone Migue Whiteside DO Primary Care Provider Reason for Visit * Reason Comments Advice Encounter Details Date Type Department Care Team Description 04/04/2019 Telephone Family Practice [facility] [address] [facility] [place] [address] Migue Whiteside, [address] [facility] [place] [address] Advice Allergies Active Allergy Reactions Severity Noted Date Comments Heparin 09/04/2009 Heparin Induced Thrombocytopenia Empagliflozin Other (Please comment) Medium 05/17/2018 3 yeast infections in 6 weeks after starting Morphine And Related 09/16/1997 Hallucinations Tetanus Toxoid Other (Please comment) 06/15/2011 Passed out documented as of this encounter (statuses as of 04/04/2019) Medications Medication Sig Dispensed Refills Start Date End Date Status PRILOSEC 20 MG PO CPDR one tablet daily 0 Active oxygen GASIndications:ELISSA (obstructive sleep apnea) 4 LPM bled through CPAP 11 cwp during all periods of sleep. 1 Each 0 04/07/2016 Active docusate sodium (STOOL SOFTENER) 100 MG [...] other meds 90 Tab 5 08/01/2018 Active liraglutide (VICTOZA) 18 MG/3ML SOPNIndications:DM type 2, goal: symptom mgmt ([facility]) Inject 1.8 mg under the skin daily. As directed 9 Pre-filled Pen Syringe Dosing Unit 11 08/01/2018 Active Nortriptyline HCl (PAMELOR) 50 MG CapsuleIndications: Fibromyalgia Take 1 Cap by mouth at bedtime. 90 Cap 5 08/01/2018 Active Glucose Blood (ONETOUCH ULTRA BLUE) STRP Check sugars 3-4 times daily 360 Strip 5 08/01/2018 Active ONETOUCH DELICA LANCETS 33G [...] Tab 5 01/12/2019 Active Vitamin D, Ergocalciferol, 77064 units CapsuleIndications: Vitamin D deficiency Take one [...] (BMI) of 50.0 to 59.9 in adult ([facility]),Hypoxemia,ELISSA (obstructive sleep apnea),HTN, goal below 140/80 [...] A1c goal of 7.0%-8.0% ([facility]),Uncontrolled type 2 diabetes mellitus with stage 3 chronic kidney disease, with long-term current use of insulin ([facility]) Inject up to 160 units subcutaneously once daily as directed 72 mL 3 03/22/2019 Active traZODone (DESYREL) 50 MG Tablet Take 1 Tab by mouth at bedtime. 30 Tab 5 04/04/2019 Active documented as of this encounter (statuses as of 04/04/2019) Active Problems Problem Noted Date Other atherosclerosis of [place] arteries of extremities, left leg 02/26/2019 Impetigo [...] as of this encounter (statuses as of 04/04/2019) Resolved Problems Problem Noted Date Resolved Date [...] as of this encounter (statuses as of 04/04/2019) Immunizations Name Administration Dates Next Due Pneumococcal [...] Addendum Note - Migue Whiteside DO - 04/04/2019 4:51 PM EDT Addended by: MIGUE WHITESIDE on: 04/04/2019 04:51 PM Modules accepted: Orders * Telephone Encounter - Migue Whiteside DO - 04/04/2019 4:51 PM EDT Trazodone 50mg 30 min before bed * Telephone Encounter - Claire Costa LPN - 04/04/2019 3:47 PM EDT Pt states that she would like Dr. Whiteside to call something in for her to sleep. She has not slept for 2 days due to a fibro flare. She states she has not had a flare this bad in a long time. Pharm selected. Please advise * Telephone Encounter - Tessa Martínez, ELISSA - 04/04/2019 3:42 PM EDT Reason for patient's call: " Fibromyalgia flare up" and medication gabapentin isn't helping, 1-10 scale pain is 8-10 and unable to sleep Caller was transferred to [facility] at the dedicated phone nurse line. documented in this encounter Plan of Treatment Upcoming Encounters Date Type Specialty Care Team Description 04/05/2019 Pharmacy Pharmacy [facility] [address] [place] [address] 04/18/2019 Pharmacy Pharmacy [facility] [address] [place] [address] 04/24/2019 Office Visit Sleep Disorders Celsa Tafoya CRNP [address] [place] [address] [phone] 06/15/2019 [facility] Visit [facility] [place] [address] [phone] Health Maintenance Due Date Last Done Comments DIABETES-EYE EXAM 02/24/2011 02/24/2010 (Do ne elsewhere), 12/18/2009, 02/18/2008 (Done elsewhere) PAP SMEAR-EVERY 3 YRS,AGES 21-65 05/11/2016 05/11/2013, 03/01/2008, 10/19/2006, Additional history exists CKD PHOS USE SMARTSET 60941 12/29/2018 04/01/2018, 08/26/2009, 08/25/2009, Additional history exists Influenza Vaccine (FLU shot) (#1) 2019 06/12/2018, 06/12/2018, 07/14/2017, Additional history exists BREAST CANCER SCREENING DISCUSSION YEARLY AGES 40-75 06/23/2019 06/23/2018, 05/09/2015, 07/12/2014, Additional history exists CKD GFR USE SMARTSET 74234 09/13/201903/14, 02/26/2019, 01/12/2019, Additional history exists DIABETES-HGBA1C EVERY 6 MONTHS 09/13/2019 03/14/2019, 09/27/2018, 05/01/2018, Additional history exists DIABETES-FOOT EXAM 01/02/2020 01/01/2019, 0 12/29/2017, 10/21/2016, Additional history exists CKD HGB USE SMARTSET 65475 02/27/202002/26, 12/23/2018, 12/08/2018, Additional history exists DIABETES-URINE MICROALBUMIN EVERY 12 MONTHS 02/27/2020 02/26/2019, 12/23/2018, 12/08/2018, Additional history exists Yearly B-12 03/14/2020 03/14/2019, 05/16/2018 PNEUMOCOCCAL 19-64 MEDIUM RISK Completed 08/22/2009, 06/15/2006 *DEPRESSION SCREENING, ANNUAL FOR PTS 18 AND OVER Addressed 06/12/2018 Overridden wi th the intention of not completing the topic MENINGOCOCCAL (MENACTRA) Aged Out No longer eligible based on patient's age to complete this topic documented as of this encounter Implants Not on filedocumented as of this encounter Advance Directives Documents on File Type Date Recorded Patient Pest Control Applicator Expl anation Advanced Directive 08/22/2009 12:00 AM [...]
--- OUTSIDE RECORDS SUMMARY | 2023-06-01 05:46 | External Medical Summary | Summary of Care ---
Author Name Unknown Organization [place] [address] Care Team Providers Care Instrument Panel Assembler Name Role Phone Kevin Whiteside Primary Care Provider Reason for Visit * Reason Comments Test Results Encounter Details Date Type Department Care Team Description 04/27/2019 Telephone Sleep Disorders, [facility] [address] [facility] [place] [address] Celsa Tafoya CRNP [address] [facility] [place] [address] Test Results Allergies Active Allergy Reactions Severity Noted Date Comments Heparin 09/04/2009 Heparin Induced Thrombocytopenia Empagliflozin Other (Please comment) Medium 05/17/2018 3 yeast infections in 6 weeks after starting Morphine And Related 09/16/1997 Hallucinations Tetanus Toxoid Other (Please comment) 06/15/2011 Passed out documented as of this encounter (statuses as of 04/27/2019) Medications Medication Sig Dispensed Refills Start Date [...] Tab 5 01/12/2019 Active Vitamin D, Ergocalciferol, 61665 units CapsuleIndications: Vitamin D deficiency Take one capsule by mouth once a week 13 Cap 0 01/13/2019 Active Blood Glucose Monitoring Suppl ([email or web address] ULTRA 2) w/Device KIT Use to test [...] 50.0 to 59.9 in adult ([facility]),Hypoxemia,ELISSA (obstructive sleep apnea),HTN, goal below [...] hronic diastolic congestive heart failure ([facility]) Take 1.5 Tabs by mouth 2 times [...] hemoglobin A1c goal of 7.0%-8.0% ([facility]),Uncontrolled type 2 diabetes mellitus with stage 3 chronic kidney disease, with long-term current use of insulin ([facility]) Inject up to 160 units [...] as of this encounter (statuses as of 04/27/2019) Active Problems Problem Noted Date Other atherosclerosis [...] as of this encounter (statuses as of 04/27/2019) Resolved Problems Problem Noted Date Resolved Date [...] as of this encounter (statuses as of 04/27/2019) Immunizations Name Administration Dates Next Due Pneumococcal [...] Miscellaneous Notes * Telephone Encounter - Anne Mirza LPN - 04/27/2019 11:45 AM EDT Letter has been mailed to the pt * Telephone Encounter - Celsa Tafoya CRNP - 04/27/2019 8:58 AM EDT Ferritin was low, meaning iron may help with RLS. Will prescribe 325mg iron ([facility]). Take with vit C 200mg (OTC) or juice every other day to daily as tolerated (constipation experienced in past). Can take colace 100mg daily to help with constipation. Dose iron for 1 month and then try stopping ropinirole and dosing gabapentin at 6-7pm and again at 10pm. Do this for about a week and then try cutting out the bedtime dose and moving the earlier doseto 90 minutes prior to typical onset of RLS. Watch fluid status. Please send her letter outlining details (printed). Let her know that the iron was sent to [facility]. Thanks. documented in this encounter Plan of Treatment Upcoming Encounters Date Type Specialty Care Team Description 05/18/2019 Pharmacy Pharmacy [facility] [address] [place] [address] 06/15/2019 Office Visit Cardiology Marjorie Powell PA-C [address] [place] [address] [phone] 07/10/2019 Office Visit Sleep Disorders Celsa Tafoya CRNP [address] [place] [address] [phone] Health Maintenance Due Date Last Done Comments PAP SMEAR-EVERY 3 YRS,AGES 21-65 05/11/2016 05/11/2013, 03/01/2008, 10/19/2006, Additional history exists CKD PHOS USE SMARTSET 27231 12/29/2018 04/0 01/2018, 08/26/2009, 08/25/2009, Additional history exists Influenza Vaccine (FLU shot) (#1) 2019 06/12/2018, 06/12/2018, 07/14/2017, Additional history exists BREAST CANCER SCREENING DISCUSSION YEARLY AGES 40-75 06/23/2019 06/23/2018, 05/09/2015, 07/12/2014, Additional history exists CKD GFR USE SMARTSET 23371 09/13/201903/14, 02/26/2019, 01/12/2019, Additional history exists DIABETES-HGBA1C EVERY 6 MONTHS 09/13/2019 03/14/2019, 09/27/2018, 05/01/2018, Additional history exists DIABETES-FOOT EXAM 01/02/2020 01/01/2019, 0 12/29/2017, 10/21/2016, Additional history exists CKD HGB USE SMARTSET 29734 02/27/202002/26, 12/23/2018, 12/08/2018, Additional history exists DIABETES-URINE [...] on File Type Date Recorded Patient Journeyman Pipefitter Expl anation Advanced Directive 08/22/2009 12:00 AM [...]
--- OUTSIDE RECORDS SUMMARY | 2023-06-01 05:46 | External Medical Summary | Summary of Care ---
Author Name Unknown Organization [place] [address] Care Team Providers Care Control Room Helper Name Role Phone Kevin Whiteside Primary Care Provider Reason for Visit * Reason Comments Dosage Adjustment Via Phone (anticoag Cl inic) Diabetes Follow-Up Encounter Details Date Type Department Care Team Description 04/05/2019 Pharmacy Pharmacy, [facility] [address] [facility] [place] [address] [facility] [address] [facility] [place] [address] Uncontrolled type 2 diabetes mellitus with stage 3 chronic kidney disease, with long-term current use of insulin ([facility]; Type 2 diabetes mellitus with hemoglobin A1c goal of 7.0%-8.0% ([facility]) Allergies Active Allergy Reactions Severity Noted Date Comments Heparin 09/04/2009 Heparin Induced Thrombocytopenia Empagliflozin Other (Please comment) Medium 05/17/2018 3 yeast infections in 6 weeks after starting Morphine And Related 09/16/1997 Hallucinations Tetanus Toxoid Other (Please comment) 06/15/2011 Passed out documented as of this encounter (statuses as of 04/05/2019) Medications Medication Sig Dispensed Refills Start Date [...] MG/3ML SOPNIndications:DM type 2, goal: symptom mgmt ([facility]) Inject 1.8 mg under the skin [...] Tab 5 01/12/2019 Active Vitamin D, Ergocalciferol, 78736 units CapsuleIndications: Vitamin D deficiency Take one [...] mellitus with hemoglobin A1c goal of 7.0%-8.0% ([facility]),Uncontrolled type 2 diabetes mellitus with stage 3 chronic kidney disease, with long-term current use of insulin ([facility]) Inject up to 160 units subcutaneously once daily as directed 72 mL 3 03/22/2019 Active traZODone (DESYREL) 50 MG Tablet Take 1 Tab by mouth at bedtime. 30 Tab 5 04/04/2019 Active documented as of this encounter (statuses as of 04/05/2019) Active Problems Problem Noted Date Other atherosclerosis of [place] arteries of extremities, left leg 02/26/2019 Impetigo [...] as of this encounter (statuses as of 04/05/2019) Resolved Problems Problem Noted Date Resolved Date [...] as of this encounter (statuses as of 04/05/2019) Immunizations Name Administration Dates Next Due Pneumococcal [...] of this encounter Progress Notes * Rose Barton RPh - 04/05/2019 10:19 AM EDT Patient Phone Numbers Left message for patient via answering machine. Patient to call back to discuss insulin pump if anyproblems/concerns. Rose Barton, Pharm D Clinical Pharmacist 04/05/2019, 10:22 AM documented in this encounter Plan of Treatment Upcoming Encounters Date Type Specialty Care Team Description 04/18/2019 Pharmacy Pharmacy [facility] [address] [place] [address] 04/24/2019 Office Visit Sleep Disorders Celsa Tafoya CRNP [address] [place] [address] [phone] 06/15/2019 Office Visit Cardiology Marjorie Powell PA-C [address] [place] [address] [phone] Health Maintenance Due Date Last Done Comments DIABETES-EYE EXAM 02/24/2011 02/24/2010 (Do ne elsewhere), 12/18/2009, 02/18/2008 (Done elsewhere) PAP SMEAR-EVERY 3 YRS,AGES 21-65 05/11/2016 05/11/2013, 03/01/2008, 10/19/2006, Additional history exists CKD PHOS USE SMARTSET 18519 12/29/2018 04/0 01/2018, 08/26/2009, 08/25/2009, Additional history exists Influenza Vaccine (FLU shot) (#1) 2019 06/12/2018, 06/12/2018, 07/14/2017, Additional history exists BREAST CANCER SCREENING DISCUSSION YEARLY AGES 40-75 06/23/2019 06/23/2018, 05/09/2015, 07/12/2014, Additional history exists CKD GFR USE SMARTSET 42636 09/13/201903/14, 02/26/2019, 01/12/2019, Additional history exists DIABETES-HGBA1C EVERY 6 MONTHS 09/13/2019 03/14/2019, 09/27/2018, 05/01/2018, Additional history exists DIABETES-FOOT EXAM 01/02/2020 01/01/2019, 0 12/29/2017, 10/21/2016, Additional history exists CKD HGB USE SMARTSET 86694 02/27/202002/26, 12/23/2018, 12/08/2018, Additional history exists DIABETES-URINE [...] goal of 7.0%-8.0% ([facility]) documented in this encounter Advance Directives Documents on File Type Date Recorded 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
--- OUTSIDE RECORDS SUMMARY | 2023-06-01 05:46 | External Medical Summary | Summary of Care ---
Author Name Unknown Organization [place] [address] Care Team Providers Care Metal Riveter Name Role Phone Kevin Whiteside Primary Care Provider Reason for Visit * Reason Comments Dosage Adjustment In Person (Anticoag Cl inic) Diabetes Follow-Up Encounter Details Date Type Department Care Team Description 04/18/2019 Pharmacy Pharmacy, [facility] [address] [facility] [place] [address] [facility] [address] [facility] [place] [address] Uncontrolled type 2 diabetes mellitus with stage 3 chronic kidney disease, with long-term current use of insulin ([facility])*; Type 2 diabetes mellitus with hemoglobin A1c goal of 7.0%-8.0% ([facility]) Allergies Active Allergy Reactions Severity Noted Date Comments Heparin 09/04/2009 Heparin Induced Thrombocytopenia Empagliflozin Other (Please comment) Medium 05/17/2018 3 yeast infections in 6 weeks after starting Morphine And Related 09/16/1997 Hallucinations Tetanus Toxoid Other (Please comment) 06/15/2011 Passed out documented as of this encounter (statuses as of 04/18/2019) Medications Medication Sig Dispensed Refills Start Date End Date Status PRILOSEC 20 MG PO CPDR one tablet daily 0 Active oxygen GASIndications:ELISSA (obstructive sleep apnea) 4 LPM bled through CPAP 11 cwp during all periods of sleep. 1 Each 0 04/07/20 16 Active docusate sodium (STOOL SOFTENER) 100 MG Capsule Take 100 mg by mouth 2 times a day as needed for Constipation. 0 Active MAG64 64 MG TBEC Take 64 mg by mouth 2 times a day. 0 06/10/20 18 Active cyclobenzaprine (FLEXERIL) 10 MG Tablet TAKE [...] bedtime. 90 Cap 5 08/01/20 18 Active Glucose Blood (ONETOUCH ULTRA BLUE) STRP Check sugars 3-4 times daily 360 Strip 5 08/01/20 18 Active ONETOUCH DELICA LANCETS [...] 5 01/13/20 19 Active Vitamin D, Ergocalciferol, 19559 units CapsuleIndications :Vitamin D deficiency Take one capsule by mouth once a week 13 Cap 0 01/14/20 19 Active Blood Glucose Monitoring Suppl (ONETOUCH ULTRA [...] Syringe Dosing Unit 5 04/18/20 19 Active liraglutide (VICTOZA) 18 MG/3ML SOPNIndications:DM type 2, goal: symptom mgmt (HCC) Inject 1.8 mg under the skin daily. As directed 9 Pre-filled Pen Syringe Dosing Unit 11 08/01/20 18 019 Discontinued documented as of this encounter (statuses as of 04/18/2019) Active Problems Problem Noted Date Other atherosclerosis of [place] arteries of extremities, left leg 02/26/2019 Impetigo [...] 10/14/2014 Overview: ICD-10 update of inactive term [place] filter in place 08/19/2014 History of pulmonary [...] as of this encounter (statuses as of 04/18/2019) Resolved Problems Problem Noted Date Resolved Date [...] as of this encounter (statuses as of 04/18/2019) Immunizations Name Administration Dates Next Due Pneumococcal [...] this encounter Progress Notes * Rose Barton, [facility] - 04/18/2019 11:32 AM EDT Medication Therapy Disease Management CSII Follow-up Interval History: Stephanie Camp is an 64 year old year old female returning to the [facility] for a diabetes insulin pump follow-up visit. Blood glucose control since last visit: stable (i.e. improved, worse, stable) Medication intolerance: no Medication compliance: yes Hospitalization or ED Utilization since last visit: no Hypoglycemia requiring assistance since last visit: no Diabetes Medications: (pump initiation settings scanned in EPIC) Victoza 1.8 mg daily Medtronic 630G Insulin Pump (Serial Number: [id number]) Infusion Set: SureT Insulin: Novolog Basal Rate: 2.6units/hour Bolus: 20 units with breakfast, 20units with lunch and 20units with supper Bolus wizard: on and using ICR: 4 [...] A1c goal of 7.0%-8.0% ([facility]) E11.9 Fibromyalgia M79.7 Abnormality of gait R26.9 Restless legs syndrome G25.81 Gastroesophageal reflux disease with esophagitis K21.0 Uncontrolled type 2 diabetes mellitus with stage 3 chronic kidney disease, with long-term current use of insulin ([facility]) E11.22, E11.65, N18.3, Z79.4 Body mass index (BMI) of 50.0 to 59.9 in adult ([facility]) Z68.43 Controlled substance agreement signed Z79.899 Chronic diastolic congestive heart failure ([facility]) I50.32 Thoracic back pain M54.6 Mild episode of recurrent major depressive disorder ([facility]) F33.0 Impetigo L01.00 Lumbar radiculopathy M54.16 Other atherosclerosis of [place] arteries of extremities, left leg ([facility]) I70.292 Review of patient's allergies indicates: Allergen Reactions Jardiance [Empagliflozin] Other (Please comment) 3 yeast infections in 6 weeks after starting Heparin Heparin Induced Thrombocytopenia Morphine And Related Hallucinations Tetanus Toxoid Other (Please comment) Passed out Current Outpatient Medications Medication Sig Dispense Refill traZODone (DESYREL) 50 MG Tablet Take 1 Tab by mouth at bedtime. 30 Tab 5 Insulin Degludec (TRESIBA FLEXTOUCH) 200 UNIT/ML SOPN Inject up to 160 units subcutaneously once daily as directed 72 mL 3 clonazePAM (KLONOPIN) 0.5 MG [...] 30 Tab 5 Blood Glucose Monitoring Suppl (coin4ceUCH ULTRA 2) w/Device KIT Use to test BG values 1 Kit 0 insulin aspart (NOVOLOG FLEXPEN) 100 UNIT/ML SOPN inject 25 units with breakfast, 20 units with lunch and 30 units with dinner plus sliding scale up to 150 units per day. 30 mL 4 Vitamin D, Ergocalciferol, 93425 units Capsule Take one capsule by mouth [...] NEEDED FOR MUSCLE SPASM 90 Tab 2 Glucose Blood (ONETOUCH ULTRA BLUE) STRP Check sugars 3-4 times daily 360 Strip 5 levothyroxine (LEVOXYL) 200 MCG Tablet TAKE ONE TABLET BY MOUTH ONE TIME DAILY at least 30 minutes prior to breakfast or other meds 90 Tab 5 liraglutide (VICTOZA) 18 MG/3ML SOPN Inject 1.8 mg under the skin daily. As directed 9 Pre-filled Pen Syringe Dosing Unit 11 Nortriptyline HCl (PAMELOR) 50 MG Capsule Take 1 Cap by mouth at bedtime. 90 Cap 5 ONETOUCH DELICA LANCETS 33G MISC Check blood sugars 3-4 times daily 180 Each 5 MAG64 64 MG TBEC Take 64 mg by mouth 2 times a day. docusate sodium (STOOL SOFTENER) 100 MG Capsule Take 100 mg by mouth 2 times a day as needed for Constipation. oxygen GAS 4 LPM bled through CPAP 11 cwp during all periods of sleep. (Patient taking differently:Pt to use Oxygen with activity during the day. 4 LPM bled through CPAP 11 cwp during all periods ofsleep. Indications: 2L during the day, 4L at bedtime) 1 Each 0 PRILOSEC 20 MG PO CPDR one tablet daily Objective: The ASCVD Risk score (Freddyadrianna JOHNS Jr., et al., 2013) failed to calculate for the following reasons: The patient has a prior AL or stroke diagnosis Estimated body mass index is 55.75 kg/m as calculated from the following: Height as of 01/23/19: 1.651 m (5' 5"). Weight as of 03/14/19: 152 kg (335 lb). BP Readings from Last 3 Encounters: 03/14/19 102/60 03/07/19 96/64 02/26/19 146/68 No POC orders found HEMOGLOBIN, A1C(%) Nessa Dt/Tm Resulted Value Status 03/14/19 1:54P 03/14/19 9.4* FINAL 1/2/19 1:48P 09/27/18 9.5* FINAL 05/01/18 9:12A 05/01/18 10.0* FINAL MICROALBUMIN RATIO(mg/g creat) Nessa Dt/Tm Resulted Value Status 05/01/18 9:13A 05/01/18 <18 FINAL 03/03/17 12:37P 03/03/17 <15 FINAL 06/24/16 3:28P 06/24/16 <12 FINAL LDL (CALCULATED)(mg/dL) Nessa Dt/Tm Resulted Value Status 03/14/19 1:54P 03/14/19 FINAL Value: UNINTERPRETABLE RESULT BASIC METAB PANEL, BMP Nessa Dt/Tm Resulted Value Status BUN (mg/dL) 03/14/19 1:54P 03/14/19 34* F CREATININE (mg/dL) 03/14/19 1:54P 03/14/19 1.6* F E GLOM FILT RATE ( ) 03/14/19 1:54P 03/14/19 35.3* F SODIUM (mmol/L) 03/14/19 1:54P 03/14/19 137 F POTASSIUM (mmol/L) 03/14/19 1:54P 03/14/19 5.4* F CHLORIDE (mmol/L) 03/14/19 1:54P 03/14/19 95* F CO2 (mmol/L) 03/14/19 1:54P 03/14/19 20* F ANION GAP (mmol/L) 03/14/19 1:54P 03/14/19 22* F GLUCOSE (mg/dL) 03/14/19 1:54P 03/14/19 169* F CALCIUM (mg/dL) 03/14/19 1:54P 03/14/19 9.9 F ALT(U/L) Nessa Dt/Tm Resulted Value Status 10/26/18 9:39A 10/26/18 23 FINAL Assessment & Plan: Glucose control is stable but not at goal, patient will adjustpump settings as noted below. Basal settings Increased as glucose is rising overnight and between meals. Patient is not entering preset bolus with meals. Reviewed why this is important and why this is probably impacting glucose control negatively at this time. Reinforced that patient is to take preset bolus with 3 meals a day and snack preset bolus with milk at bedtime. Patient agreeable to this plan. Also, recommending rotation from victoza to ozempic to reduce injections.Provided patient with pen teach and reviewed MOA and AE with patient. Patient to SMBG at least 4 times daily, before each meal and at bedtime. Patient aware to contact clinic if any hypoglycemia before next visit. Reviewed rule of 15s. Reviewed appropriate management of hyperglycemia as noted in pump start documentation. Diabetes Medications: (pump initiation settings scanned in EPIC) START: Ozempic 0.25 mg weekly x 2 weeks and then 0.50 mg weekly Medtronic 630G Insulin Pump (Serial Number: [id number]) Infusion Set: SureT Insulin: Novolog Basal Rate: 3.0 units/hour Bolus: 20 units with breakfast, 20units with lunch and 20units with supper and 8 units with bedtimesnack Bolus wizard: on and using ICR: 4 ISF: 14 Blood Glucose Goals: 120-150 Active Insulin Time: 4 hours Return to Clinic: 4 week(s) Next Office Visit: 05/18/2019 Scheduled Provider(s): [facility] Moe Barton RPh Clinical Pharmacist Medication Therapy Disease Management 04/18/2019, 11:32 AM documented in this encounter Plan of Treatment Upcoming Encounters Date Type Specialty Care Team Description 04/24/2019 Office Visit Sleep Disorders Celsa Tafoya CRNP [address] [place] [address] [phone] 05/18/2019 Pharmacy Pharmacy [facility] [address] [address] 06/15/2019 Office Visit Cardiology Marjorie Powell PA-C [address] [place] [address] [phone] Health Maintenance Due Date Last Done Comments PAP SMEAR-EVERY 3 YRS,AGES 21-65 05/11/2016 05/11/2013, 03/01/2008, 10/19/2006, Additional history exists CKD PHOS USE SMARTSET 43252 12/29/2018 04/0 01/2018, 08/26/2009, 08/25/2009, Additional history exists Influenza Vaccine (FLU shot) (#1) 2019 06/12/2018, 06/12/2018, 07/14/2017, Additional history exists BREAST CANCER SCREENING DISCUSSION YEARLY AGES 40-75 06/23/2019 06/23/2018, 05/09/2015, 07/12/2014, Additional history exists CKD GFR USE SMARTSET 77804 09/13/201903/14, 02/26/2019, 01/12/2019, Additional history exists DIABETES-HGBA1C EVERY 6 MONTHS 09/13/2019 03/14/2019, 09/27/2018, 05/01/2018, Additional history exists DIABETES-FOOT EXAM 01/02/2020 01/01/2019, 0 12/29/2017, 10/21/2016, Additional history exists CKD HGB USE SMARTSET 04929 02/27/202002/26, 12/23/2018, 12/08/2018, Additional history exists DIABETES-URINE [...] Documents on File Type Date Recorded Patient Maintenance [employer] Expl anation Advanced Directive 08/22/2009 12:00 [...]
--- OUTSIDE RECORDS SUMMARY | 2023-06-01 05:46 | External Medical Summary | Summary of Care ---
Author Name Unknown Organization [place] [address] Care Team Providers Care Tobacco Sample Puller Name Role Phone Kevin Whiteside Primary Care Provider Reason for Visit * Reason Comments Review Sleep Study Encounter Details Date Type Department Care Team Description 04/24/2019 Office Visit Sleep Disorders, [facility] [address] [facility] [place] [address] Celsa Tafoya CRNP [address] [facility] [place] [address] Restless legs syndrome (RLS)*; ELISSA (obstructive sleep apnea); Nocturnal hypoxemia Allergies Active Allergy Reactions Severity Noted Date Comments Heparin 09/04/2009 Heparin Induced Thrombocytopenia Empagliflozin Other (Please comment) Medium 05/17/2018 3 yeast infections in 6 weeks after starting Morphine And Related 09/16/1997 Hallucinations Tetanus Toxoid Other (Please comment) 06/15/2011 Passed out documented as of this encounter (statuses as of 04/24/2019) Medications Medication Sig Dispensed Refills Start Date [...] 5 01/13/20 19 Active Vitamin D, Ergocalciferol, 23561 units CapsuleIndications :Vitamin D deficiency Take one capsule by mouth once a week 13 Cap 0 01/14/20 19 Active Blood Glucose Monitoring Suppl ([employer] ULTRA 2) w/Device KIT Use to [...] Unit 5 04/18/20 19 Active Glucose Blood (Ug[employer]CH ULTRA BLUE) STRP Check sugars 3-4 times daily 400 Strip 2 04/21/20 Active oxygen GASIndications:ELISSA (obstructive sleep apnea) 2 LPM bled through CPAP 11 cwp during all periods of sleep. 1 Each 0 04/24/20 19 Active oxygen GASIndications:ELISSA (obstructive sleep apnea) 4 LPM bled through CPAP 11 cwp during all periods of sleep. 1 Each 0 04/07/20 16 019 Discontinued documented as of this encounter (statuses as of 04/24/2019) Active Problems Problem Noted Date Other atherosclerosis of [place] arteries of extremities, left leg 02/26/2019 Impetigo [...] 10/14/2014 Overview: ICD-10 update of inactive term [place] filter in place 08/19/2014 History of pulmonary [...] as of this encounter (statuses as of 04/24/2019) Resolved Problems Problem Noted Date Resolved Date [...] as of this encounter (statuses as of 04/24/2019) Immunizations Name Administration Dates Next Due Pneumococcal [...] Reading Time Taken Comments Blood Pressure 110/60 04/24/2019 10:10 AM EDT Pulse 78 04/24/2019 10:10 AM EDT Temperature - - Respiratory Rate 14 04/24/2019 10:10 AM EDT Oxygen Saturation - - Inhaled Oxygen Concentration - - Weight 152 kg (335 lb) 04/24/2019 10:10 AM EDT Height - - Body Mass Index 55.75 01/23/2019 3:50 PM EDT documented in this encounter Patient Instructions * Patient Instructions* Celsa Tafoya CRNP - 04/24/2019 10:41 AM EDT Check ferritin today. If ferritin is recommended, take 325mg iron with vit C 200mg or juice every other day to daily as tolerated. If ferritin is normal, stop ropinirole and dose gabapentin at 7pm. If needed can take another gabapentin or 1/2 dose ropinirole on bad nights. Watch fluid status. documented in this encounter Progress Notes * Celsa Tafoya CRNP - 04/24/2019 10:25 AM EDT SLEEP [facility]INE [facility] History: Routine f/u for ELISSA on CPAP with oxygen and RLS who had recent titration to requalify for oxygen. - 07/2011 (332 lbs) AHI 11.3. Significant hypoxemia - 09/2012 titration 11cwp but was suboptimal - NPO CPAP/2L 03/25/16: <89% 40 mins, CPAP use confirmed, AHI 0.3, no excessive leak - Ferritin 02/2016: 42 - Titration 04/09/19: nasal CPAP 11 cwp with 2 LPM, PLMI 7.8 Failed initial titration d/t insomnia from RLS. Since the ropinirole dose was increased to 2mg. RLS can start 6-7pm. Symptoms have gotten earlier in the evening over the past years. Will walk to counter the symptoms. Ropinirole 2 mg and gabapentin 300 mg dosed 9pm. Takes gabapentin 300mg BID (mid day if needed). Taken for fibromyalgia. Has had constipation on iron. Bedtime 11pm. Can have RLS when in bed. CPAP used 7 nights/week. Denies tolerance issues. Notes benefit with use. May nap, generally 3pm with PAP in place. Compliance Data: Report date: 30 days, 04/23/19 % total days used: 97 % days used > 4 hours: 93 Average hours per day used: 8 hours 25 mins Large leak: 5 mins AHI: 0.2 Equipment: DME Provider: [facility] Oxygen Device/settin [id number] Interface Type: nasal Restless Leg Syndrome Rating Scale (Pt Reported) Overall, how would you rate the RLS discomfort in your legs or arms? (Pt Reported): Severe (Value: 3) Overall, how would you rate the need to move around because of RLS symptoms? (Pt Reported): Severe (Value: 3) How severe was your sleep disturbance due to your RLS symptoms? (Pt Reported): Severe (Value: 3) How severe was your tiredness or sleepiness during the day due to your RLS symptoms? (Pt Reported):Severe (Value: 3) How severe was your RLS as a whole? (Pt Reported): Severe (Value: 3) Overall, how severe was the impact of your RLS symptoms on your ability to carry out your daily affairs, for example, carrying out a satisfactory family, home, social, school, or work? (Pt Reported):Moderate (Value: 2) How severe was your mood disturbance due to your RLS symptoms, for example, angry, depressed, sad, anxious, or irritable? (Pt Reported): Mild (Value: 1) In the past week, overall, how much relief of your RLS arm or leg discomfort did you get from moving around? (Pt Reported): Mild relief (Value: 3) In the past week, how often did you get RLS symptoms? (Pt Reported): Very often (6 to 7 days in 1 week) (Value: 4) In the past week, when you had RLS symptoms, how severe were they are average? (Pt Reported): Severe (3 to 8 hours per 24 hours) (Value: 3) Score: 28 Score Description: Severe Survey Source: Clinic Completion Date: 04/24/2019 10:23:32 AM Functional Outcomes of Sleep Questionnaire (Pt Reported) Do you have difficulty concentrating because you are sleepy or tired? (Pt Reported): No (Value: 4) Do you have difficulty remembering things because you are sleepy or tired? (Pt Reported): No (Value: 4) Do you have difficulty operating a motor vehicle for short distances (less than 100 miles) because you become sleepy? (Pt Reported): No (Value: 4) Do you have difficulty operating a motor vehicle for long distances (more than 100 miles) because you become sleepy? (Pt Reported): Yes, a little (Value: 3) Do you have difficulty visiting family or [...] you are tired or sleepy? (Pt Reported): No (Value: 4) Do you have difficulty being as active as you want to be in the morning because you are tired or sleepy? (Pt Reported): Yes, a little (Value: 3) Has your mood been affected because you are sleepy or tired? (Pt Reported): Yes, a little (Value: 3) Score: 36 Survey Source: Clinic Completion Date: 04/24/2019 10:20:45 AM [place] Sleepiness Scale (Pt Reported) Sitting and reading (Pt Reported): Slight chance of dozing (Value: 1) Watching TV (Pt Reported): Slight chance of dozing (Value: 1) Sitting inactive in a public place, such as a theater or meeting (Pt Reported): No chance of dozing(Value: 0) As a passenger in a car for an hour without a break (Pt Reported): Slight chance of dozing (Value: 1) Lying down to rest in the afternoon when circumstances permit (Pt Reported): High chance of dozing (Value: 3) Sitting and talking to someone (Pt Reported): No chance of dozing (Value: 0) Sitting quietly after lunch without alcohol (Pt Reported): Slight chance of dozing (Value: 1) In a car, while stopped for a few minutes in traffic (Pt Reported): No chance of dozing (Value: 0) Score: 7 Survey Source: Clinic Completion Date: 04/24/2019 10:18:15 AM ROS: Constitutional: no fatigue, night sweats, or unexplained weight loss ENT: no am headaches or sinus congestion Cardiovascular: no chest pain, palpitations, or lower extremity edema Pulmonary: no shortness of breath, cough or wheezing Gastro: no abdominal pain, aerophagia or nocturnal gastric reflux Reviewed changes in PMH, PSH or family history in the interim of care. Current Medications: Outpatient Medications Marked as Taking for the 04/24/19 encounter (Office Visit) with TATIANA Knapp Medication Sig Glucose Blood ([employer]CH ULTRA BLUE) STRP Check sugars 3-4 times daily Semaglutide (OZEMPIC) 0.25 or 0.5 MG/DOSE SOPN Inject 0.25 mg once weekly for 2 weeks and then 0.50 mg weekly traZODone (DESYREL) 50 MG Tablet Take 1 Tab by mouth at bedtime. Insulin Degludec (TRESIBA FLEXTOUCH) 200 UNIT/ML SOPN Inject up to 160 units subcutaneously once daily as directed clonazePAM (KLONOPIN) 0.5 MG Tablet TAKE ONE TABLET BY MOUTH TWICE DAILY insulin aspart (NOVOLOG) 100 UNIT/ML injection Use in insulin pump up to 200 units daily furosemide (LASIX) 40 MG Tablet Take 1.5 [...] Tabs by mouth 2 times a day. levothyroxine (LEVOXYL) 25 MCG Tablet TAKE ONE TABLET BY MOUTH IN THE MORNING AT LEAST 30 MINUTES PRIOR TO BREAKFAST OR OTHER MEDS Blood Glucose Monitoring Suppl ([employer] ULTRA 2) w/Device KIT Use to test BG values insulin aspart (NOVOLOG FLEXPEN) 100 UNIT/ML SOPN inject 25 units with breakfast, 20 units withlunch and 30 units with dinner plus sliding scale up to 150 units per day. Vitamin D, Ergocalciferol, 28695 units Capsule Take one capsule by mouth once a week spironolactone (ALDACTONE) 25 MG Tablet Take 0.5 Tabs by mouth daily. gabapentin (NEURONTIN) 300 MG Capsule Take 1 [...] MOUTH AT BEDTIME NEEDED FOR MUSCLE SPASM levothyroxine (LEVOXYL) 200 MCG Tablet TAKE ONE TABLET BY MOUTH ONE TIME DAILY at least 30 minutes prior to breakfast or other meds Nortriptyline HCl (PAMELOR) 50 MG Capsule Take 1 Cap by mouth at bedtime. ONENex3 CommunicationsUCH DELICA LANCETS 33G MISC Check blood sugars 3-4 times daily MAG64 64 MG TBEC Take 64 mg by mouth 2 times a day. docusate sodium (STOOL SOFTENER) 100 MG Capsule Take 100 mg by mouth 2 times a day as needed for Constipation. oxygen GAS 4 LPM bled through CPAP 11 cwp during all periods of sleep. (Patient taking differently: Pt to use Oxygen with activity during the day. 4 LPM bled through CPAP 11 cwp during all periods of sleep. Indications: 2L during the day, 4L at bedtime) PRILOSEC 20 MG PO CPDR one tablet daily BP 110/60 | Pulse 78 | Resp 14 | Wt 335 lbs (151.955kg) | BMI 55.75 kg/m | BSA 2.64 m | LMP 03/11/2003 Constitutional: Alert, oriented and in no acute distress Cardio: Regular rate and rhythm. Chest: Normal respiratory effort at rest, equal breath sounds, clear to ascultation. Neuro: Fluent speech, no focal motor deficits, gait steady. Psych: Appropriate mood and affect. Assessment & Plan: 1. Restless legs syndrome (RLS) - FERRITIN - IRON SCREEN, INCLUDING TIBC If ferritin is recommended, take 325mg iron with vit C 200mg or juice every other day to daily as tolerated. (constipation) If ferritin is normal, stop ropinirole and dose gabapentin at 7pm. If needed can take another gabapentin. Watch fluid status. Walks, warm soaks Medications/substances that can induce or worsen RLS include: nicotine, caffeine, alcohol, SSRIs, SNRIs, tricyclic antidepressants, lithium, and dopamine D2 receptor antagonists (e.g. neuroleptics and antipsychotics). 2. ELISSA (obstructive sleep apnea) Continue CPAP 11 cwp during all sleep opportunities. 3. Nocturnal hypoxemia 2 LPM bled through CPAP. Encouraged continued use of CPAP to include all periods of sleep. Recommended routine cleaning and change of supplies as needed. Lifestyle modification with diet and exercise changes were encouraged because weight loss often results in improvement of sleep disordered breathing. Avoid driving, operating heavy machinery or engaging in any activity that requires full alertness if feeling sleepy, drowsy or otherwise impaired. Follow-up with Sleep Medicine in 6 wks. Celsa Tafoya MS, [facility] Patient counseling on weight management given. documented in this encounter Nursing Notes * Anne Mirza LPN - 04/24/2019 10:12 AM EDT Chief Complaint Patient presents with Review Sleep Study DME: [employer]PER[employer]- Oxygen @ 2 lpm daytime 4 lpm @ night - CPap humidifier documented in this encounter Plan of Treatment Upcoming Encounters Date Type Specialty Care Team Description 05/18/2019 Pharmacy Pharmacy [place] [place] [address] [place] [address] 06/15/2019 Office Visit Cardiology Marjorie Powell PA-C [address] [place] [address] [phone] 07/10/2019 Office Visit Sleep Disorders Celsa Tafoya CRNP [address] [place] [address] [phone] Pending Results Name Type Priority Associated Diagnoses Date /Time FERRITIN Lab Routine Restless legs syndrome (RLS) 04/24/2019 11:03 AM EDT IRON SCREEN, INCLUDING TIBC Lab Routine Restless legs syndrome (RLS) 04/24/2019 11:03 AM EDT Health Maintenance Due Date Last Done Comments PAP SMEAR-EVERY 3 YRS,AGES 21-65 05/11/2016 05/11/2013, 03/01/2008, 10/19/2006, Additional history exists CKD PHOS USE SMARTSET 13155 12/29/2018 04/0 01/2018, 08/26/2009, 08/25/2009, Additional history exists Influenza Vaccine (FLU shot) (#1) 2019 06/12/2018, 06/12/2018, 07/14/2017, Additional history exists BREAST CANCER SCREENING DISCUSSION YEARLY AGES 40-75 06/23/2019 06/23/2018, 05/09/2015, 07/12/2014, Additional history exists CKD GFR USE SMARTSET 38445 09/13/201903/14, 02/26/2019, 01/12/2019, Additional history exists DIABETES-HGBA1C EVERY 6 MONTHS 09/13/2019 03/14/2019, 09/27/2018, 05/01/2018, Additional history exists DIABETES-FOOT EXAM 01/02/2020 01/01/2019, 0 12/29/2017, 10/21/2016, Additional history exists CKD HGB USE SMARTSET 12781 02/27/202002/26, 12/23/2018, 12/08/2018, Additional history exists DIABETES-URINE [...] encounter Visit Diagnoses Diagnosis Restless legs syndrome (RLS)- Primary ELISSA (obstructive sleep apnea) Obstructive sleep apnea (adult) (pediatric) Nocturnal hypoxemia Hypoxemia documented in this encounter Advance Directives Documents on File Type Date Recorded Patient Director Electronics Expl anation Advanced Directive 08/22/2009 12:00 AM [...]
--- OUTSIDE RECORDS SUMMARY | 2023-06-01 05:46 | External Medical Summary | Summary of Care ---
Author Name Unknown Organization [place] [address] Care Team Providers Care Hydraulic Blocker Name Role Phone Kevin Whiteside Primary Care Provider Reason for Referral * Precert (Routine) Status Reason Specialty Diagnoses / Procedures Referred By Contact Referred To Contact Pending Review Precert Sleep Disorders Diagnoses ELISSA (obstructive sleep apnea) Procedures SLEEP STUDY, W/ CPAP (TREATMENT SETTINGS) Paige Patel MD [address] [place] [address] Reason for Visit * Reason Comments Sleep Apnea Encounter Details Date Type Department Care Team Description 04/10/2019 Office Visit Sleep Lab, [address] [address] Paige Patel MD [address] [place] [address] ELISSA (obstructive sleep apnea)* Allergies Active Allergy Reactions Severity Noted Date Comments Heparin 09/04/2009 Heparin Induced Thrombocytopenia Empagliflozin Other (Please comment) Medium 05/17/2018 3 yeast infections in 6 weeks after starting Morphine And Related 09/16/1997 Hallucinations Tetanus Toxoid Other (Please comment) 06/15/2011 Passed out documented as of this encounter (statuses as of 04/20/2019) Medications Medication Sig Dispensed Refills Start Date [...] Tab 5 01/12/2019 Active Vitamin D, Ergocalciferol, 08097 units CapsuleIndications: Vitamin D deficiency Take one [...] as of this encounter (statuses as of 04/20/2019) Active Problems Problem Noted Date Other atherosclerosis of [place] arteries of extremities, left leg 02/26/2019 Impetigo [...] 10/14/2014 Overview: ICD-10 update of inactive term [place] filter in place 08/19/2014 History of pulmonary [...] as of this encounter (statuses as of 04/20/2019) Resolved Problems Problem Noted Date Resolved Date [...] as of this encounter (statuses as of 04/20/2019) Immunizations Name Administration Dates Next Due Pneumococcal [...] as of this encounter Progress Notes * Paige Patel MD - 04/20/2019 12:42 PM EDT . documented in this encounter Plan of Treatment Upcoming Encounters Date Type Specialty Care Team Description 04/24/2019 Office Visit Sleep Disorders Celsa Tafoya CRNP [address] [place] [address] [phone] 05/18/2019 Pharmacy Pharmacy [facility] [place] [address] [place] [address] 06/15/2019 Office Visit Cardiology Marjorie Powell PA-C [address] [place] [address] [phone] Health Maintenance Due Date Last Done Comments PAP SMEAR-EVERY 3 YRS,AGES 21-65 05/11/2016 05/11/2013, 03/01/2008, 10/19/2006, Additional history exists CKD PHOS USE SMARTSET 91910 12/29/2018 04/0 01/2018, 08/26/2009, 08/25/2009, Additional history exists Influenza Vaccine (FLU shot) (#1) 2019 06/12/2018, 06/12/2018, 07/14/2017, Additional history exists BREAST CANCER SCREENING DISCUSSION YEARLY AGES 40-75 06/23/2019 06/23/2018, 05/09/2015, 07/12/2014, Additional history exists CKD GFR USE SMARTSET 50210 09/13/201903/14, 02/26/2019, 01/12/2019, Additional history exists DIABETES-HGBA1C EVERY 6 MONTHS 09/13/2019 03/14/2019, 09/27/2018, 05/01/2018, Additional history exists DIABETES-FOOT EXAM 01/02/2020 01/01/2019, 0 12/29/2017, 10/21/2016, Additional history exists CKD HGB USE SMARTSET 95751 02/27/202002/26, 12/23/2018, 12/08/2018, Additional history exists DIABETES-URINE [...] on File Type Date Recorded Patient Automatic Oven Operator Expl anation Advanced Directive 08/22/2009 12:00 [...]
--- OUTSIDE RECORDS SUMMARY | 2023-06-01 05:46 | External Medical Summary | Summary of Care ---
Author Name Unknown Organization [place] [address] Care Team Providers Care Tie Knitter Helper Name Role Phone Kevin Whiteside DO Primary Care Provider Encounter Details Date Type Department Care Team Description 04/06/2019 Orders Only [facility] [address] [place] [address] Kevin Whiteside, [address] [facility] [place] [address] Allergies Active Allergy Reactions Severity Noted Date Comments Heparin 09/04/2009 Heparin Induced Thrombocytopenia Empagliflozin Other (Please comment) Medium 05/17/2018 3 yeast infections in 6 weeks after starting Morphine And Related 09/16/1997 Hallucinations Tetanus Toxoid Other (Please comment) 06/15/2011 Passed out documented as of this encounter (statuses as of 04/06/2019) Medications Medication Sig Dispensed Refills Start Date [...] Tab 5 01/12/2019 Active Vitamin D, Ergocalciferol, 31299 units CapsuleIndications: Vitamin D deficiency Take one [...] of 7.0%-8.0% ([facility]),Uncontrolled type 2 diabetes mellitus with stage 3 chronic kidney disease, with long-term current use of insulin ([facility]) Inject up to 160 units subcutaneously once daily as directed 72 mL 3 03/22/2019 Active traZODone (DESYREL) 50 MG Tablet Take 1 Tab by mouth at bedtime. 30 Tab 5 04/04/2019 Active documented as of this encounter (statuses as of 04/06/2019) Active Problems Problem Noted Date Other atherosclerosis of [place] arteries of extremities, left leg 02/26/2019 Impetigo [...] as of this encounter (statuses as of 04/06/2019) Resolved Problems Problem Noted Date Resolved Date [...] as of this encounter (statuses as of 04/06/2019) Immunizations Name Administration Dates Next Due Pneumococcal [...] Encounters Date Type Specialty Care Team Description 04/09/2019 Office Visit Sleep Disorders Paige Patel MD [address] [place] [address] [place] [address] 04/18/2019 Pharmacy Pharmacy [facility] [place] [address] [place] [address] 04/24/2019 Office Visit Sleep Disorders Celsa Tafoya CRNP [address] [place] [address] 06/15/2019 Office Visit Cardiology Marjorie Powell PA-C [address] [place] [address] Health Maintenance Due Date Last Done Comments DIABETES-EYE EXAM 02/24/2011 02/24/2010 (Do ne elsewhere), 12/18/2009, 02/18/2008 (Done elsewhere) PAP SMEAR-EVERY 3 YRS,AGES 21-65 05/11/2016 05/11/2013, 03/01/2008, 10/19/2006, Additional history exists CKD PHOS USE SMARTSET 82169 12/29/2018 04/0 01/2018, 08/26/2009, 08/25/2009, Additional history exists Influenza Vaccine (FLU shot) (#1) 2019 06/12/2018, 06/12/2018, 07/14/2017, Additional history exists BREAST CANCER SCREENING DISCUSSION YEARLY AGES 40-75 06/23/2019 06/23/2018, 05/09/2015, 07/12/2014, Additional history exists CKD GFR USE SMARTSET 61969 09/13/201903/14, 02/26/2019, 01/12/2019, Additional history exists DIABETES-HGBA1C EVERY 6 MONTHS 09/13/2019 03/14/2019, 09/27/2018, 05/01/2018, Additional history exists DIABETES-FOOT EXAM 01/02/2020 01/01/2019, 0 12/29/2017, 10/21/2016, Additional history exists CKD HGB USE SMARTSET 58042 02/27/202002/26, 12/23/2018, 12/08/2018, Additional history exists DIABETES-URINE [...] Associated Diagnosis Comments DIABETIC EYE EXAM Routine 04/05/2019 documented in this encounter Results * DIABETIC EYE EXAM (04/05/2019) Specimen Narrative Performed At Performing Organization Address City/State/Zipcod e Phone Number OUTSIDE LAB (SEE SCANNED REPORT) documented in this encounter Advance Directives Documents on File Type Date Recorded Patient Transportation Maintenance Worker Expl anation Advanced Directive 08/22/2009 [...]
--- OUTSIDE RECORDS SUMMARY | 2023-06-01 05:46 | External Medical Summary ---
Author Name Unknown Address [address] [id number] Phone Organization K01:[facility] [address] [id number] Laboratory Report Ordering Provider Test Date Status VESTA HUDSON 04/24/2019 11:03:00 Final Observation Date Value Abnormality Reference Status Ferritin 04/24/2019 19:59 49.0 13-150 Fin al Performing Location [address] [address]
--- OUTSIDE RECORDS SUMMARY | 2023-06-01 05:46 | External Medical Summary | Summary of Care ---
Author Name Unknown Organization [place] [address] Care Team Providers Care Java Programmer Analyst Name Role Phone Migue Whiteside DO Primary Care Provider Reason for Visit * Reason Comments Medication Refill Encounter Details Date Type Department Care Team Description 04/20/2019 Refill Family Practice [facility] [address] [place] [address] Migue Whiteside DO [address] [facility] [place] [address] Allergies Active Allergy Reactions Severity Noted Date Comments Heparin 09/04/2009 Heparin Induced Thrombocytopenia Empagliflozin Other (Please comment) Medium 05/17/2018 3 yeast infections in 6 weeks after starting Morphine And Related 09/16/1997 Hallucinations Tetanus Toxoid Other (Please comment) 06/15/2011 Passed out documented as of this encounter (statuses as of 04/21/2019) Medications Medication Sig Dispensed Refills Start Date [...] 5 01/13/20 19 Active Vitamin D, Ergocalciferol, 07645 units CapsuleIndications :Vitamin D deficiency Take one capsule by mouth once a week 13 Cap 0 01/14/20 19 Active Blood Glucose Monitoring Suppl ([employer] ULTRA 2) w/Device KIT Use to [...] 59.9 in adult ([facility]),Hypoxemia,OS A (obstructive sleep apnea),HTN, goal [...] insulin 200 Box Dosing Unit 11 02/27/20 Active furosemide (LASIX) 40 MG TabletIndications: Chronic [...] goal of 7.0%-8.0% ([facility]),Uncontrolled type 2 diabetes mellitus with stage 3 chronic kidney disease, with long-term current use of insulin ([facility]) Inject up to 160 units [...] times daily 400 Strip 2 04/21/20 Active Glucose Blood (ONETOUCH ULTRA BLUE) STRP Check sugars 3-4 times daily 360 Strip 5 08/01/20 18 019 Discontinued documented as of this encounter (statuses as of 04/21/2019) Active Problems Problem Noted Date Other atherosclerosis of [place] arteries of extremities, left leg 02/26/2019 Impetigo [...] as of this encounter (statuses as of 04/21/2019) Resolved Problems Problem Noted Date Resolved Date [...] as of this encounter (statuses as of 04/21/2019) Immunizations Name Administration Dates Next Due Pneumococcal [...] Miscellaneous Notes * Telephone Encounter - Ivy Bucio RPh - 04/21/2019 10:09 AM EDT Signed Prescriptions: Disp Refills Glucose Blood (ONETOUCH ULTRA BLUE) STRP 400 St*2 Sig: Check sugars 3-4 times dailyAuthorizing Provider: MIGUE WHITESIDE User: IVY BUCIO------- * Telephone Encounter - Flaca Thayer CPhT - 04/20/2019 3:41 PM EDT Pending Prescriptions: Disp Refills Glucose Blood (ONETOUCH ULTRA BLUE) STRP 400 St*5 Sig: Check sugars 3-4 times daily Last Office Visit: 03/07/2019 Next Office Visit: No Future Appointments If no future appointments scheduled, and last appointment is greater than a year ago, please schedule patient for a follow-up appointment Last date the medication was ordered: 08/01/2018 Patient Phone Numbers Labs: Lab Results Component Value Date/Time CREAT 1.6 (H) 03/14/2019 01:54 PM POTASSIUM 5.4 (H) 03/14/2019 01:54 PM TSH 0.88 03/14/2019 01:54 PM LDLCALC UNINTERPRETABLE RESULT 03/14/2019 01:54 PM LDLDIRECT 109 07/14/2017 12:35 PM ALT 23 10/26/2018 09:39 AM HGBA1C 9.4 (H) 03/14/2019 01:54 PM documented in this encounter Plan of Treatment Upcoming Encounters Date Type Specialty Care Team Description 04/24/2019 Office Visit Sleep Disorders Celsa Tafoya CRNP [address] [place] [address] [phone] 05/18/2019 Pharmacy Pharmacy [facility] [address] [place] [address] 06/15/2019 Office Visit Cardiology Marjorie Powell PA-C [address] [place] [address] [phone] Health Maintenance Due Date Last Done Comments PAP SMEAR-EVERY 3 YRS,AGES 21-65 05/11/2016 05/11/2013, 03/01/2008, 10/19/2006, Additional history exists CKD PHOS USE SMARTSET 96114 12/29/2018 04/0 01/2018, 08/26/2009, 08/25/2009, Additional history exists Influenza Vaccine (FLU shot) (#1) 2019 06/12/2018, 06/12/2018, 07/14/2017, Additional history exists BREAST CANCER SCREENING DISCUSSION YEARLY AGES 40-75 06/23/2019 06/23/2018, 05/09/2015, 07/12/2014, Additional history exists CKD GFR USE SMARTSET 95847 09/13/201903/14, 02/26/2019, 01/12/2019, Additional history exists DIABETES-HGBA1C EVERY 6 MONTHS 09/13/2019 03/14/2019, 09/27/2018, 05/01/2018, Additional history exists DIABETES-FOOT EXAM 01/02/2020 01/01/2019, 0 12/29/2017, 10/21/2016, Additional history exists CKD HGB USE SMARTSET 91304 02/27/202002/26, 12/23/2018, 12/08/2018, Additional history exists DIABETES-URINE [...] Documents on File Type Date Recorded Patient Topper Packer Expl anation Advanced Directive 08/22/2009 12:00 [...]
--- OUTSIDE RECORDS SUMMARY | 2023-06-01 05:46 | External Medical Summary | Summary of Care ---
Author Name Unknown Organization [place] [address] Care Team Providers Care Gasoline Finisher Name Role Phone Migue Whiteside DO Primary Care Provider Reason for Visit * Reason Comments Advice Encounter Details Date Type Department Care Team Description 04/04/2019 Telephone Family Practice [facility] [address] [place] [address] Migue Whiteside, [address] [facility] [place] [address] Advice Allergies [...] MG/3ML SOPNIndications:DM type 2, goal: symptom mgmt ([facility]) Inject 1.8 mg under the skin daily. [...] Tab 5 01/12/2019 Active Vitamin D, Ergocalciferol, 10617 units CapsuleIndications: Vitamin D deficiency Take one [...] Problems Problem Noted Date Other atherosclerosis of [place] arteries of extremities, left leg 02/26/2019 Impetigo [...] Telephone Encounter - Mattie Hilario LPN - 04/04/2019 5:15 PM EDT Pt aware * Addendum Note - Migue Whiteside DO [...] Please advise * Telephone Encounter - Tessa Martínze OSA - 04/04/2019 3:42 PM EDT Reason for patient's call: " Fibromyalgia flare up" and medication gabapentin isn't helping, 1-10 scale pain is 8-10 and unable to sleep Caller was transferred to [facility] at the dedicated phone nurse line. documented in this encounter Plan of Treatment Upcoming Encounters Date Type Specialty Care Team Description 04/05/2019 Pharmacy [facility] [address] [address] [address] 04/18/[facility] [address] [place] [address] 04/24/2019 Office Visit Sleep Disorders Celsa Tafoya CRNP [address] [address] [address] [phone] 06/15/2019 Office Visit Cardiology Marjorie Powell PA-C [address] [address] [address] [phone] Health Maintenance Due Date Last Done Comments DIABETES-EYE EXAM 02/24/2011 02/24/2010 (Do ne elsewhere), 12/18/2009, 02/18/2008 (Done elsewhere) PAP SMEAR-EVERY 3 YRS,AGES 21-65 05/11/2016 05/11/2013, 03/01/2008, 10/19/2006, Additional history exists CKD PHOS USE SMARTSET 05920 12/29/2018 04/0 01/2018, 08/26/2009, 08/25/2009, Additional history exists Influenza Vaccine (FLU shot) (#1) 2019 06/12/2018, 06/12/2018, 07/14/2017, Additional history exists BREAST CANCER SCREENING DISCUSSION YEARLY AGES 40-75 06/23/2019 06/23/2018, 05/09/2015, 07/12/2014, Additional history exists CKD GFR USE SMARTSET 40481 09/13/201903/14, 02/26/2019, 01/12/2019, Additional history exists DIABETES-HGBA1C EVERY 6 MONTHS 09/13/2019 03/14/2019, 09/27/2018, 05/01/2018, Additional history exists DIABETES-FOOT EXAM 01/02/2020 01/01/2019, 0 12/29/2017, 10/21/2016, Additional history exists CKD HGB USE SMARTSET 78855 02/27/202002/26, 12/23/2018, 12/08/2018, Additional history exists DIABETES-URINE [...] on File Type Date Recorded Patient Pipe Inspector Expl anation Advanced Directive 08/22/2009 12:00 [...]
--- OUTSIDE RECORDS SUMMARY | 2023-06-01 05:46 | External Medical Summary ---
Author Name Unknown Address [facility] [place] [address] Phone Organization K01:[facility] [address] [id number] Laboratory Report Ordering Provider Test Date Status VESTA HUDSON 04/24/2019 11:03:00 Final Observation Date Value Abnormality Reference Status Iron 04/24/2019 20:19 74 33-151 Fin al Iron-binding capacity 04/24/2019 20:19 408 2 50-425 Final Transferrin Sat % 04/24/2019 20:19 18 15-55 Final Performing Location [facility] [address] [id number]
--- OUTSIDE RECORDS SUMMARY | 2023-06-01 05:46 | External Medical Summary | Summary of Care ---
Author Name Unknown Organization [place] [address] Care Team Providers Care Back Up Worker Name Role Phone Kevin Whiteside Primary Care Provider Reason for Visit * Reason Comments Oxygen Assessment Encounter Details Date Type Department Care Team Description 03/09/2019 Telephone Sleep Disorders, [facility] [address] [facility] [place] [address] Celsa Tafoya CRNP 132 [facility] [place] [address] Oxygen Assessment Allergies Active Allergy Reactions Severity Noted Date [...] Tab 5 01/12/2019 Active Vitamin D, Ergocalciferol, 39620 units CapsuleIndications:V itamin D deficiency Take one capsule by mouth once a week 13 Cap 0 01/13/2019 Active Blood Glucose Monitoring Suppl (Net[employer]TOUCH ULTRA 2) w/Device KIT Use to test BG values 1 Kit 0 01/26/2019 Active insulin aspart (N[employer]OLOG FLEXPEN) 100 UNIT/ML SOPN inject 25 units with breakfast, 20 units with lunch and 30 units with dinner plus sliding scale up to 150 units per day. 30 mL 4 01/26/2019 Active levothyroxine (LEVOXYL) 25 MCG TabletIndications:Po [...] 11 02/26/2019 Active furosemide (LASIX) 40 MG TabletIndications:Ch ronic diastolic congestive heart failure (HCC) Take 1.5 Tabs by mouth 2 times a day. 270 Tab 3 03/07/2019 Active rOPINIRole (REQUIP) 2 MG TabletIndications:Re stless legs syndrome Take 1 Tab by mouth at bedtime. 90 Tab 3 03/07/2019 Active documented as of this encounter (statuses as of 04/27/2019) Active Problems Problem Noted Date Other atherosclerosis of [place] arteries of extremities, left leg 02/26/2019 Impetigo [...] encounter Miscellaneous Notes * Telephone Encounter - Celsa Tafoya CRNP - 03/09/2019 1:08 PM EDT Received order for evaluating for portable oxygen conserving device from [facility] with dx code CHF. We see her for ELISSA. This needs to go to Dr. Kevin Whiteside who ordered portable oxygen 03/07/19. documented in this encounter Plan of Treatment Upcoming Encounters Date Type Specialty Care Team Description 05/18/2019 Pharmacy Pharmacy [facility] [address] [place] [address] 06/15/2019 Office Visit Cardiology Marjorie Powell PA-C [address] [address] [address] [phone] 07/10/2019 Office Visit Sleep Disorders Celsa Tafoya CRNP [address] [place] [address] [address] [phone] Health Maintenance Due Date Last Done Comments PAP SMEAR-EVERY 3 YRS,AGES 21-65 05/11/2016 05/11/2013, 03/01/2008, 10/19/2006, Additional history exists CKD PHOS USE SMARTSET 13244 12/29/2018 04/0 01/2018, 08/26/2009, 08/25/2009, Additional history exists Influenza Vaccine (FLU shot) (#1) 2019 06/12/2018, 06/12/2018, 07/14/2017, Additional history exists BREAST CANCER SCREENING DISCUSSION YEARLY AGES 40-75 06/23/2019 06/23/2018, 05/09/2015, 07/12/2014, Additional history exists CKD GFR USE SMARTSET 05790 09/13/201903/14, 02/26/2019, 01/12/2019, Additional history exists DIABETES-HGBA1C EVERY 6 MONTHS 09/13/2019 03/14/2019, 09/27/2018, 05/01/2018, Additional history exists DIABETES-FOOT EXAM 01/02/2020 01/01/2019, 0 12/29/2017, 10/21/2016, Additional history exists CKD HGB USE SMARTSET 98773 02/27/202002/26, 12/23/2018, 12/08/2018, Additional history exists DIABETES-URINE [...] Documents on File Type Date Recorded Patient Blue Line Operator Expl anation Advanced Directive 08/22/2009 12:00 [...]
--- OUTSIDE RECORDS SUMMARY | 2023-06-01 05:46 | External Medical Summary | Summary of Care ---
Author Name Unknown Organization [place] [address] Care Team Providers Care Taste Tester Name Role Phone Kevin Whiteside Primary Care Provider Reason for Visit * Reason Comments Review Sleep Study Encounter Details Date Type Department Care Team Description 04/24/2019 Office Visit Sleep Disorders, [facility] [address] [facility] [place] [address] Celsa Tafoya CRNP 132 [facility] [place] [address] Restless legs syndrome (RLS)*; [...] 5 01/13/20 19 Active Vitamin D, Ergocalciferol, 20565 units CapsuleIndications :Vitamin D deficiency Take one capsule by mouth once a week 13 Cap 0 01/14/20 19 Active Blood Glucose Monitoring Suppl ([employer] ULTRA 2) w/Device KIT Use to [...] hemoglobin A1c goal of 7.0%-8.0% ([facility]),Uncontrolled type 2 diabetes mellitus with stage 3 chronic kidney disease, with long-term current use of insulin ([facility]) Inject up to 160 units [...] Unit 5 04/18/20 19 Active Glucose Blood (Woodall Nicholson GroupTOUCH ULTRA BLUE) STRP Check sugars 3-4 [...] Problems Problem Noted Date Other atherosclerosis of [place] arteries of extremities, left leg 02/26/2019 [...] 10/14/2014 Overview: ICD-10 update of inactive term [place] filter in place 08/19/2014 History of pulmonary [...] Source: Clinic Completion Date: 04/24/2019 10:20:45 AM [place] Sleepiness Scale (Pt Reported) Sitting and reading [...] with TATIANA Knapp Medication Sig Glucose Blood ([employer] NetworkUCH ULTRA BLUE) STRP Check sugars 3-4 times [...] OR OTHER MEDS Blood Glucose Monitoring Suppl ([employer] ULTRA 2) w/Device KIT Use to test BG values insulin aspart (NOVOLOG FLEXPEN) 100 UNIT/ML SOPN inject 25 units with breakfast, 20 units withlunch and 30 units with dinner plus sliding scale up to 150 units per day. Vitamin D, Ergocalciferol, 52731 units Capsule Take one capsule by mouth [...] Take 1 Cap by mouth at bedtime. ONEGoodRxUCH DELICA LANCETS 33G MISC Check blood sugars [...] MS, TATIANA [facility] Patient counseling on weight management given. 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- Oxygen @ 2 lpm daytime 4 lpm @ night - CPap humidifier documented in this encounter Plan of Treatment Upcoming Encounters Date Type Specialty Care Team Description 05/18/2019 Pharmacy Pharmacy [place] [place] [address] [place] [address] 06/15/2019 Office Visit Cardiology Marjorie Powell PA-C [address] [place] [address] [phone] 07/10/2019 Office Visit Sleep Disorders Celsa Tafoya CRNP [address] [place] [address] [phone] Pending Results Name Type Priority Associated Diagnoses Date /Time FERRITIN Lab Routine Restless legs syndrome (RLS) 04/24/2019 11:03 AM EDT IRON SCREEN, INCLUDING TIBC Lab Routine Restless legs syndrome (RLS) 04/24/2019 11:03 AM EDT Health Maintenance Due Date Last Done Comments PAP SMEAR-EVERY 3 YRS,AGES 21-65 05/11/2016 05/11/2013, 03/01/2008, 10/19/2006, Additional history exists CKD PHOS USE SMARTSET 40337 12/29/2018 04/0 01/2018, 08/26/2009, 08/25/2009, Additional history exists Influenza Vaccine (FLU shot) (#1) 2019 06/12/2018, 06/12/2018, 07/14/2017, Additional history exists BREAST CANCER SCREENING DISCUSSION YEARLY AGES 40-75 06/23/2019 06/23/2018, 05/09/2015, 07/12/2014, Additional history exists CKD GFR USE SMARTSET 92660 09/13/201903/14, 02/26/2019, 01/12/2019, Additional history exists DIABETES-HGBA1C EVERY 6 MONTHS 09/13/2019 03/14/2019, 09/27/2018, 05/01/2018, Additional history exists DIABETES-FOOT EXAM 01/02/2020 01/01/2019, 0 12/29/2017, 10/21/2016, Additional history exists CKD HGB USE SMARTSET 25027 02/27/202002/26, 12/23/2018, 12/08/2018, Additional history exists DIABETES-URINE [...] Documents on File Type Date Recorded Patient Audit Manager Expl anation Advanced Directive 08/22/2009 12:00 [...]
--- OUTSIDE RECORDS SUMMARY | 2023-06-01 05:47 | External Medical Summary | Summary of Care ---
Author Name Unknown Organization [place] [address] Care Team Providers Care Ballistic Technician Name Role Phone Kevin Whiteside Primary Care Provider Reason for Visit * Reason Comments case management Encounter Details Date Type Department Care Team Description 04/03/2019 Telephone Internal Medicine [address] [address] Frances Nicholson RN [address] [place] [address] case management Allergies Active Allergy Reactions Severity Noted Date Comments Heparin 09/04/2009 Heparin Induced Thrombocytopenia Empagliflozin Other (Please comment) Medium 05/17/2018 3 yeast infections in 6 weeks after starting Morphine And Related 09/16/1997 Hallucinations Tetanus Toxoid Other (Please comment) 06/15/2011 Passed out documented as of this encounter (statuses as of 04/03/2019) Medications Medication Sig Dispensed Refills Start Date [...] MG/3ML SOPNIndications:DM type 2, goal: symptom mgmt ([facility]) Inject 1.8 mg under the skin daily. [...] Tab 5 01/12/2019 Active Vitamin D, Ergocalciferol, 88290 units CapsuleIndications: Vitamin D deficiency Take one [...] with hemoglobin A1c goal of 7.0%-8.0% ([facility]),Uncontrolled type 2 diabetes mellitus with stage 3 chronic kidney disease, with long-term current use of insulin ([facility]) Inject up to 160 units subcutaneously once daily as directed 72 mL 3 03/22/2019 Active documented as of this encounter (statuses as of 04/03/2019) Active Problems Problem Noted Date Other atherosclerosis of [place] arteries of extremities, left leg 02/26/2019 Impetigo [...] as of this encounter (statuses as of 04/03/2019) Resolved Problems Problem Noted Date Resolved Date [...] as of this encounter (statuses as of 04/03/2019) Immunizations Name Administration Dates Next Due Pneumococcal [...] Telephone Encounter - Frances Nicholson RN - 04/03/2019 3:38 PM EDT PMH: DM, HTN, SOA with CPAP, history of PE, frank filter in place, dyslipidemia-statin intol, GERD, Fibromyalgia, depression/anxiety New-acute diastolic HF and ELSIE sent from PCP office abnormal labs and shortness of breath. x-ray concerning for atypical pneumonia 06/06/18-[facility] admit Acute respiratory failure with hypoxia [...] weight 343 on d/c 06/10/18 d/c from [facility] new on Lasix, potassium and Mg Stopped Metformin and HCTZ 12/08 [facility] admit acute decompensated diastolic HF Consulted Cardiology and nephrology 12/14/18 D/c to home Added Spirolactone Increased Lasix to 80 mg BID (4-6 hours apart) Weekly BMP x 4 weights and home BP cuff D/c weight 351.2 12/18-Dr Whiteside 01/12-cards 01/24-neph 12/23 [facility] admit with Nausea, abd pain, intermittent fever (afebrile in EE), headaches, diffuse body aches. Creat elevated 2.52 on admit UTI- for klebselli 12/27-d/c to home 10 days of Omnicef for UTI 2nd set of blood cultures neg d/c weight 157.8 Kg (D/C weight last admit was 159.3) 01/01-Dr Whiteside 01/11-sleep med-but had to alcel sleep study due to hosp 01/12-cards 02/28-[facility] admit for fall-slipped, couldn't get up Fall: Fell after legs slid on the floor Possible related to orthostatic vs mechanical fall Xray hip showed no fracture or dislocation within the pelvis or hips. Xray of knees showed No fractures within the right or left knee. -[id number] 03/04 D/C form [facility] Requip 2 mg HS Lasix decreased to 60 mg, but if weight increases by more than 2 lbs, needs to take extra 20 mg of Lasix Needs BMP in 1 week O2 at HS and with ambulation 03/05-Dr Whiteside ROSA Wk 4 Spoke with pt. Not able to find [facility] for scale/BP cuff-sent scale and cuff back to [facility]. Not sure about weight or BP. Says she doesn't have swelling and not feeling SOB. Using O2 with activity and atnight Reports that BS had been out of control for past few days-up to 500 one time, but this morning it was back in the 200s. Says she has an appt with MTM tomorrow to learn to use the insulin pump No longer using [facility] scale Denies chest pain Denies increased SOB No cough Using O2 with activity and with C-PAP HS Denies increased lower leg edema Denies N/V or decreased intake Denies unmanaged pain-has neuropathy which is chronic Denies diff with bowels or bladder stressed the importance of daily weights and discussed pt buying a scale. Will explore options of BP cuff. Instructed to call if increased SOB, swelling, weakness, dizziness, BS >250 for longer than 24 hour or any other concerns Encouraged to avoid salt/salty foods Stressed safety/fall precautions Call again in 4-6 weeks week Frances Nicholson RN, [facility] Assembly Hand [phone] documented in this encounter Plan of Treatment Upcoming Encounters Date Type Specialty Care Team Description 04/04/2019 Pharmacy Pharmacy [facility] [place] [address] [address] 04/24/2019 Office Visit Sleep Disorders Celsa Tafoya CRNP [address] [address] [phone] 06/15/2019 Office Visit Cardiology Marjorie Powell PA-C [address] [address] [phone] Health Maintenance Due Date Last Done Comments DIABETES-EYE EXAM 02/24/2011 02/24/2010 (Do ne elsewhere), 12/18/2009, 02/18/2008 (Done elsewhere) PAP SMEAR-EVERY 3 YRS,AGES 21-65 05/11/2016 05/11/2013, 03/01/2008, 10/19/2006, Additional history exists CKD PHOS USE SMARTSET 92860 12/29/2018 04/0 01/2018, 08/26/2009, 08/25/2009, Additional history exists Influenza Vaccine (FLU shot) (#1) 2019 06/12/2018, 06/12/2018, 07/14/2017, Additional history exists BREAST CANCER SCREENING DISCUSSION YEARLY AGES 40-75 06/23/2019 06/23/2018, 05/09/2015, 07/12/2014, Additional history exists CKD GFR USE SMARTSET 56869 09/13/201903/14, 02/26/2019, 01/12/2019, Additional history exists DIABETES-HGBA1C EVERY 6 MONTHS 09/13/2019 03/14/2019, 09/27/2018, 05/01/2018, Additional history exists DIABETES-FOOT EXAM 01/02/2020 01/01/2019, 0 12/29/2017, 10/21/2016, Additional history exists CKD HGB USE SMARTSET 16879 02/27/202002/26, 12/23/2018, 12/08/2018, Additional history exists DIABETES-URINE [...] Documents on File Type Date Recorded Patient Aircraft Dispatcher Expl anation Advanced Directive 08/22/2009 12:00 AM [...]
--- OUTSIDE RECORDS SUMMARY | 2023-06-01 05:47 | External Medical Summary | Summary of Care ---
Author Name Unknown Organization [place] [address] Care Team Providers Care Marketing Editor Name Role Phone Kevin Whiteside DO Primary Care Provider Encounter Details Date Type Department Care Team Description 03/30/2019 Telephone Family Practice [facility] [address] [place] [address] Kevin Whiteside, [address] [facility] [address] [address] Allergies Active Allergy Reactions Severity Noted Date Comments Heparin 09/04/2009 Heparin Induced Thrombocytopenia Empagliflozin Other (Please comment) Medium 05/17/2018 3 yeast infections in 6 weeks after starting Morphine And Related 09/16/1997 Hallucinations Tetanus Toxoid Other (Please comment) 06/15/2011 Passed out documented as of this encounter (statuses as of 03/30/2019) Medications Medication Sig Dispensed Refills Start Date [...] MG/3ML SOPNIndications:DM type 2, goal: symptom mgmt ([facility]) Inject 1.8 mg under the skin [...] Tab 5 01/12/2019 Active Vitamin D, Ergocalciferol, 73613 units CapsuleIndications: Vitamin D deficiency Take one [...] as of this encounter (statuses as of 03/30/2019) Active Problems Problem Noted Date Other atherosclerosis of [place] arteries of extremities, left leg 02/26/2019 Impetigo [...] as of this encounter (statuses as of 03/30/2019) Resolved Problems Problem Noted Date Resolved Date [...] as of this encounter (statuses as of 03/30/2019) Immunizations Name Administration Dates Next Due Pneumococcal [...] Telephone Encounter - Jennifer Gann LPN - 03/30/2019 2:42 PM EDT Received email that Tresiba was approved by insurance Patient and pharmacy made aware documented in this encounter Plan of Treatment Upcoming Encounters Date Type Specialty Care Team Description 04/04/2019 Pharmacy Pharmacy [facility] [address] [address] 04/24/2019 Office Visit Sleep Disorders Celsa Tafoya CRNP [address] [address] [phone] 06/15/2019 Office Visit Cardiology Marjorie Powell PA-C [address] [address] [phone] Health Maintenance Due Date Last Done Comments DIABETES-EYE EXAM 02/24/2011 02/24/2010 (Do ne elsewhere), 12/18/2009, 02/18/2008 (Done elsewhere) PAP SMEAR-EVERY 3 YRS,AGES 21-65 05/11/2016 05/11/2013, 03/01/2008, 10/19/2006, Additional history exists CKD PHOS USE SMARTSET 40787 12/29/2018 04/0 01/2018, 08/26/2009, 08/25/2009, Additional history exists Influenza Vaccine (FLU shot) (#1) 2019 06/12/2018, 06/12/2018, 07/14/2017, Additional history exists BREAST CANCER SCREENING DISCUSSION YEARLY AGES 40-75 06/23/2019 06/23/2018, 05/09/2015, 07/12/2014, Additional history exists CKD GFR USE SMARTSET 27006 09/13/201903/14, 02/26/2019, 01/12/2019, Additional history exists DIABETES-HGBA1C EVERY 6 MONTHS 09/13/2019 03/14/2019, 09/27/2018, 05/01/2018, Additional history exists DIABETES-FOOT EXAM 01/02/2020 01/01/2019, 0 12/29/2017, 10/21/2016, Additional history exists CKD HGB USE SMARTSET 09641 02/27/202002/26, 12/23/2018, 12/08/2018, Additional history exists DIABETES-URINE [...] on File Type Date Recorded Patient Rn Family Expl anation Advanced Directive 08/22/2009 12:00 AM [...]
--- OUTSIDE RECORDS SUMMARY | 2023-06-01 05:47 | External Medical Summary | Summary of Care ---
Author Name Unknown Organization [place] [address] Care Team Providers Care Cotton Weigher Operator Name Role Phone Kevin Whiteside Primary Care Provider Encounter Details Date Type Department Care Team Description 03/27/2019 Global CoordinatorFamily Medicine Chair Medicine [address] [address] Frances Nicholson RN [address] [place] [address] HF (heart failure) ([facility])*; Uncontrolled type 2 diabetes mellitus with stage 3 chronic kidney disease, with long-term current use of insulin ([facility]) Allergies Active Allergy Reactions Severity Noted Date Comments Heparin 09/04/2009 Heparin Induced Thrombocytopenia Empagliflozin Other (Please comment) Medium 05/17/2018 3 yeast infections in 6 weeks after starting Morphine And Related 09/16/1997 Hallucinations Tetanus Toxoid Other (Please comment) 06/15/2011 Passed out documented as of this encounter (statuses as of 03/27/2019) Medications Medication Sig Dispensed Refills Start Date [...] type 2, goal: symptom mgmt ([facility]) Inject 1.8 mg under the skin daily. [...] Tab 5 01/12/2019 Active Vitamin D, Ergocalciferol, 14959 units CapsuleIndications: Vitamin D deficiency Take one [...] goal of 7.0%-8.0% ([facility]),Uncontrolled type 2 diabetes mellitus with stage 3 chronic kidney disease, with long-term current use of insulin ([facility]) Inject up to 160 units subcutaneously once daily as directed 72 mL 3 03/22/2019 Active documented as of this encounter (statuses as of 03/27/2019) Active Problems Problem Noted Date Other atherosclerosis of [place] arteries of extremities, left leg 02/26/2019 [...] 10/14/2014 Overview: ICD-10 update of inactive term [place] filter in place 08/19/2014 History of pulmonary [...] as of this encounter (statuses as of 03/27/2019) Resolved Problems Problem Noted Date Resolved Date [...] as of this encounter (statuses as of 03/27/2019) Immunizations Name Administration Dates Next Due Pneumococcal [...] Progress Notes * Frances Nicholson RN - 03/27/2019 4:16 PM EDT PMH: DM, HTN, SOA with CPAP, history of PE, zoraida filter in place, dyslipidemia-statin intol, GERD, Fibromyalgia, depression/anxiety New-acute diastolic HF and ELSIE sent from PCP office abnormal labs and shortness of breath. x-ray concerning for atypical pneumonia 06/06/18-[facility] admit Acute respiratory failure with hypoxia and [...] weight 343 on d/c 06/10/18 d/c from [facility] new on Lasix, potassium and Mg Stopped Metformin and HCTZ 12/08 [facility] admit acute decompensated diastolic HF Consulted Cardiology and nephrology 12/14/18 D/c to home Added Spirolactone Increased Lasix to 80 mg BID (4-6 hours apart) Weekly BMP x 4 weights and home BP cuff D/c weight 351.2 12/18-Dr Whiteside 01/12-cards 01/24-neph 12/23 [facility] admit with Nausea, abd pain, intermittent fever (afebrile in EE), headaches, diffuse body aches. Creat elevated 2.52 on admit UTI- for klebselli 12/27-d/c to home 10 days of Omnicef for UTI 2nd set of blood cultures neg d/c weight 157.8 Kg (D/C weight last admit was 159.3) 01/01-Dr Whiteside 01/11-sleep med-but had to alcel sleep study due to hosp 01/12-cards 02/28-[facility] admit for fall-slipped, couldn't get up Fall: Fell after legs slid on the floor Possible related to orthostatic vs mechanical fall Xray hip showed no fracture or dislocation within the pelvis or hips. Xray of knees showed No fractures within the right or left knee. -[id number] 03/04 D/C form [facility] Requip 2 mg HS Lasix decreased to 60 mg, but if weight increases by more than 2 lbs, needs to take extra 20 mg of Lasix Needs BMP in 1 week O2 at HS and with ambulation 03/05-Dr Whiteside Case Management Assessment/ROSA wk 3 GOALS Is this call for a hospital, alf or rehab facility discharge to home? Yes 03/04/19 D/C from [facility] S: Reports:Pt reports that she hasn't been able to find her moderm for the scale and BP cuff-has a few more boxes to check. Reports her wt as 332. Reports that BS have been up-one day in the 500s, today in the 300s. Says she hopes the insulin pump will be helpful in controlling her BS. Admits that she has not been eating regular meals due to her moving from one apt to another. Also has been dizzywith position changes Weight -per pt 332. Pt has [facility] scale with BP cuff, not transmitting as pt has Lost" the modem when she moved Increased edema: denies Chest pain denies Increased shortness of breath: cough denies dyspnea with daily activities oxygen to wear O2 with activity and HS with C-PAP conserving device (C-PAP / BiPAP) Chills / Sweats / Fever: denies chills/sweats and denies fever Fall: reports 3 falls-poss related to hypotension/hypoxia Appetite: denies nausea, vomiting, burning, decreased appetite Bowel: denies problems Bladder: denies problems Medications: meds reconciled Last cardiology appt, cardiology stopped Lisinopril Chronic Pain: ongoing chronic pain from neuropathy/fibromyalgia O: Phone visit for ROSA wk 3 GOALS Medications: per pt, takes meds as prescribed A: Patient Centered Prioritized Goals: Pt will weigh self daily and verbalize weight gain requiring extra 20 mg of Lasix. Pt will verbalize s/s needing reported to Dr/CM. Pt will keep appts as scheduled. Pt's will work with MTM and improve next HbA1C. Development of self - management action plan [...] to communicate, understand instructions, process information. P: Global Coordinator Interventions: Encouraged pt to search for modem-aware that cannot just replace modem-plan is to return scale and BP cuff if not able to find modem. Discussed need to obtain her own scale to weigh self. Discussed dizziness with position change and advised to schedule nurse visit to check BP-pt will consider if dizziness continues Reinforce Self Management Action Plan established at previous visit Weigh self daily, take an extra 20 mg of Lasix for weight gain of 2 lbs or more in [address]/CM, call with increased SOB, swelling, weakness/dizziness/lightheadedness, fall, BS>250 for longer than 24 hours or any other concerns Continue to avoid salt/salty foods-foods higher than 300mg/serving. Instructed to restrict fluids to 2 qts/day Encouraged to eat regular meals, take meds including insulin at same time daily- pt has not been doing this-admits that she is "off schedule with moving. Reinforced safety education / fall prevention-caution with position changes, use of walker, O2 PCP Notified of enrollment in CM/HM program: Yes SNP Member? No Re-evaluation of plan of care and progress towards goals achievement: Says she will try and find her modem. Aware of s/s needing reported Plan to call patient next week to reassess and update plan of care, instructed to call Case Manageror Primary Care Provider with change in symptoms or as needed before next follow-up, verbalizes understanding and agrees with plan. Frances Nicholson RN Outpatient Global Coordinator documented in this encounter Plan of Treatment Upcoming Encounters Date Type Specialty Care Team Description 04/04/[address] [facility] [address] [address] 04/24/2019 Office Visit Sleep Disorders Celsa Tafoya CRNP [address] [address] [phone] 06/15/2019 Office Visit Cardiology Marjorie Powell PA-C [address] [address] [phone] Health Maintenance Due Date Last Done Comments DIABETES-EYE EXAM 02/24/2011 02/24/2010 (Do ne elsewhere), 12/18/2009, 02/18/2008 (Done elsewhere) PAP SMEAR-EVERY 3 YRS,AGES 21-65 05/11/2016 05/11/2013, 03/01/2008, 10/19/2006, Additional history exists CKD PHOS USE SMARTSET 79113 12/29/2018 04/0 01/2018, 08/26/2009, 08/25/2009, Additional history exists Influenza Vaccine (FLU shot) (#1) 2019 06/12/2018, 06/12/2018, 07/14/2017, Additional history exists BREAST CANCER SCREENING DISCUSSION YEARLY AGES 40-75 06/23/2019 06/23/2018, 05/09/2015, 07/12/2014, Additional history exists CKD GFR USE SMARTSET 54882 09/13/201903/14, 02/26/2019, 01/12/2019, Additional history exists DIABETES-HGBA1C EVERY 6 MONTHS 09/13/2019 03/14/2019, 09/27/2018, 05/01/2018, Additional history exists DIABETES-FOOT EXAM 01/02/2020 01/01/2019, 0 12/29/2017, 10/21/2016, Additional history exists CKD HGB USE SMARTSET 42858 02/27/202002/26, 12/23/2018, 12/08/2018, Additional history exists DIABETES-URINE [...] on File Type Date Recorded Patient Bank 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 Expl anation Advanced Directive 08/22/2009 12:00 [...]
--- OUTSIDE RECORDS SUMMARY | 2023-06-01 05:47 | External Medical Summary | Summary of Care ---
Author Name Unknown Organization [place] [address] Care Team Providers Care Prop Maker Name Role Phone Kevin Whiteside Primary Care Provider Reason for Visit * Reason Comments case management Encounter Details Date Type Department Care Team Description 04/03/2019 Telephone Internal Medicine [address] [address] Frances Nicholson RN [address] [place] [address] case management Allergies Active Allergy [...] MG/3ML SOPNIndications:DM type 2, goal: symptom mgmt ([facility]) Inject 1.8 mg under the [...] Tab 5 01/12/2019 Active Vitamin D, Ergocalciferol, 06518 units CapsuleIndications: Vitamin D deficiency Take one [...] A1c goal of 7.0%-8.0% ([facility]),Uncontrolled type 2 diabetes mellitus with stage 3 chronic kidney disease, with long-term current use of insulin ([facility]) Inject up to 160 units subcutaneously once daily as directed 72 mL 3 03/22/2019 Active documented as of this encounter (statuses as of 04/03/2019) Active Problems Problem Noted Date Other atherosclerosis of [place] arteries of extremities, left leg 02/26/2019 Impetigo [...] Hypervolemia 07/13/2018 08/26/2018 Heparin-induced thrombocytopenia 06/12/2018 08/26/2018 ELSEI (acute kidney injury) 06/12/20182017 Kidney disease, chronic, [...] of breath. x-ray concerning for atypical pneumonia 06/06/18-[facility] admit Acute respiratory failure with hypoxia [...] weight 343 on d/c 06/10/18 d/c from [facility] new on Lasix, potassium and Mg Stopped Metformin and HCTZ 12/08 [facility] admit acute decompensated diastolic HF Consulted Cardiology and nephrology 12/14/18 D/c to home Added Spirolactone Increased Lasix to 80 mg BID (4-6 hours apart) Weekly BMP x 4 weights and home BP cuff D/c weight 351.2 12/18-Dr Whiteside 01/12-cards 01/24-neph 12/23 [facility] admit with Nausea, abd pain, intermittent fever (afebrile in EE), headaches, diffuse body aches. Creat elevated 2.52 on admit UTI- for klebselli 12/27-d/c to home 10 days of Omnicef for UTI 2nd set of blood cultures neg d/c weight 157.8 Kg (D/C weight last admit was 159.3) 01/01-Dr Whiteside 01/11-sleep med-but had to alcel sleep study due to hosp 01/12-cards 02/28-[facility] admit for fall-slipped, couldn't get up Fall: Fell after legs slid on the floor Possible related to orthostatic vs mechanical fall Xray hip showed no fracture or dislocation within the pelvis or hips. Xray of knees showed No fractures within the right or left knee. -[id number] 03/04 D/C form [facility] Requip 2 mg HS Lasix decreased to 60 mg, but if weight increases by more than 2 lbs, needs to take extra 20 mg of Lasix Needs BMP in 1 week O2 at HS and with ambulation 03/05-Dr Whiteside ROSA Wk 4 Spoke with pt. Not able to find [facility] [place] cuff-sent scale and cuff back to [facility]. Not sure about weight or BP. Says [...] use the insulin pump No longer using [facility] scale Denies chest pain Denies increased SOB [...] in 4-6 weeks week Frances Nicholson RN, [facility] [place] [phone] documented in this encounter Plan of Treatment Upcoming Encounters Date Type Specialty Care Team Description 04/04/2019 Pharmacy Pharmacy [facility] [address] [address] 04/24/2019 Office Visit Sleep Disorders Celsa Tafoya CRNP [address] [address] [phone] 06/15/2019 Office Visit Cardiology Marjorie Powell PA-C [address] [address] [phone] Health Maintenance Due Date Last Done Comments DIABETES-EYE EXAM 02/24/2011 02/24/2010 (Do ne elsewhere), 12/18/2009, 02/18/2008 (Done elsewhere) PAP SMEAR-EVERY 3 YRS,AGES 21-65 05/11/2016 05/11/2013, 03/01/2008, 10/19/2006, Additional history exists CKD PHOS USE SMARTSET 40009 12/29/2018 04/0 01/2018, 08/26/2009, 08/25/2009, Additional history exists Influenza Vaccine (FLU shot) (#1) 2019 06/12/2018, 06/12/2018, 07/14/2017, Additional history exists BREAST CANCER SCREENING DISCUSSION YEARLY AGES 40-75 06/23/2019 06/23/2018, 05/09/2015, 07/12/2014, Additional history exists CKD GFR USE SMARTSET 81148 09/13/201903/14, 02/26/2019, 01/12/2019, Additional history exists DIABETES-HGBA1C EVERY 6 MONTHS 09/13/2019 03/14/2019, 09/27/2018, 05/01/2018, Additional history exists DIABETES-FOOT EXAM 01/02/2020 01/01/2019, 0 12/29/2017, 10/21/2016, Additional history exists CKD HGB USE SMARTSET 42513 02/27/202002/26, 12/23/2018, 12/08/2018, Additional history exists DIABETES-URINE [...] on File Type Date Recorded Patient Cloth Folder Machine Expl anation Advanced Directive 08/22/2009 12:00 [...]
--- OUTSIDE RECORDS SUMMARY | 2023-06-01 05:47 | External Medical Summary | Summary of Care ---
Author Name Unknown Organization [place] [address] Care Team Providers Care Quality Assurance/R&D Lab Technician Name Role Phone Kevin Whiteside Primary Care Provider Encounter Details Date Type Department Care Team Description 03/27/2019 Utilization EngineerQuality Systems Specialist Medicine [address] [address] Frances Nicholson RN [address] [place] [address] HF (heart failure) ([facility])*; Uncontrolled type 2 diabetes mellitus with stage 3 chronic kidney disease, with long-term current use of insulin ([facility]) Allergies Active Allergy Reactions Severity [...] Tab 5 01/12/2019 Active Vitamin D, Ergocalciferol, 86946 units CapsuleIndications: Vitamin D deficiency Take one [...] 10/14/2014 Overview: ICD-10 update of inactive term [place] filter in place 08/19/2014 History of pulmonary [...] of breath. x-ray concerning for atypical pneumonia 06/06/18-[facility] admit Acute respiratory failure with hypoxia and [...] weight 343 on d/c 06/10/18 d/c from [facility] new on Lasix, potassium and Mg Stopped Metformin and HCTZ 12/08 [facility] admit acute decompensated diastolic HF Consulted Cardiology and nephrology 12/14/18 D/c to home Added Spirolactone Increased Lasix to 80 mg BID (4-6 hours apart) Weekly BMP x 4 weights and home BP cuff D/c weight 351.2 12/18-Dr Whiteside 01/12-cards 01/24-neph 12/23 [facility] admit with Nausea, abd pain, intermittent fever (afebrile in EE), headaches, diffuse body aches. Creat elevated 2.52 on admit UTI- for klebselli 12/27-d/c to home 10 days of Omnicef for UTI 2nd set of blood cultures neg d/c weight 157.8 Kg (D/C weight last admit was 159.3) 01/01-Dr Whiteside 01/11-sleep med-but had to alcel sleep study due to hosp 01/12-cards 02/28-[facility] admit for fall-slipped, couldn't get up Fall: Fell after legs slid on the floor Possible related to orthostatic vs mechanical fall Xray hip showed no fracture or dislocation within the pelvis or hips. Xray of knees showed No fractures within the right or left knee. -[id number] 03/04 D/C form [facility] Requip 2 mg HS Lasix decreased to 60 mg, but if weight increases by more than 2 lbs, needs to take extra 20 mg of Lasix Needs BMP in 1 week O2 at HS and with ambulation 03/05-Dr Whiteside Case Management Assessment/ROSA wk 3 GOALS Is this call for a hospital, skilled nursing or rehab facility discharge to home? Yes 03/04/19 D/C from [facility] S: Reports:Pt reports that she hasn't been [...] to communicate, understand instructions, process information. P: Utilization Engineer Interventions: Encouraged pt to search for modem-aware [...] agrees with plan. Frances Nicholson RN Outpatient Utilization Engineer documented in this encounter Plan of Treatment Upcoming Encounters Date Type Specialty Care Team Description 04/04/2019 Pharmacy Pharmacy [facility], [facility] [address] [address] 04/24/2019 Office Visit Sleep Disorders Celsa Tafoya CRNP [address] [address] [phone] 06/15/2019 Office Visit Cardiology Marjorie Powell PA-C [address] [address] [phone] Health Maintenance Due Date Last Done Comments DIABETES-EYE EXAM 02/24/2011 02/24/2010 (Do ne elsewhere), 12/18/2009, 02/18/2008 (Done elsewhere) PAP SMEAR-EVERY 3 YRS,AGES 21-65 05/11/2016 05/11/2013, 03/01/2008, 10/19/2006, Additional history exists CKD PHOS USE SMARTSET 68423 12/29/2018 04/0 01/2018, 08/26/2009, 08/25/2009, Additional history exists Influenza Vaccine (FLU shot) (#1) 2019 06/12/2018, 06/12/2018, 07/14/2017, Additional history exists BREAST CANCER SCREENING DISCUSSION YEARLY AGES 40-75 06/23/2019 06/23/2018, 05/09/2015, 07/12/2014, Additional history exists CKD GFR USE SMARTSET 35286 09/13/201903/14, 02/26/2019, 01/12/2019, Additional history exists DIABETES-HGBA1C EVERY 6 MONTHS 09/13/2019 03/14/2019, 09/27/2018, 05/01/2018, Additional history exists DIABETES-FOOT EXAM 01/02/2020 01/01/2019, 0 12/29/2017, 10/21/2016, Additional history exists CKD HGB USE SMARTSET 01778 02/27/202002/26, 12/23/2018, 12/08/2018, Additional history exists DIABETES-URINE [...] Documents on File Type Date Recorded Patient Gear Shaper Expl anation Advanced Directive 08/22/2009 12:00 [...]
--- OUTSIDE RECORDS SUMMARY | 2023-06-01 05:47 | External Medical Summary | Summary of Care ---
Author Name Unknown Organization [place] [address] Care Team Providers Care Electrical Accessories Assembler Name Role Phone Kevin Whiteside DO Primary Care Provider Reason for Visit * Reason Comments [facility] Care Coordination Services Encounter Details Date Type Department Care Team Description 03/26/2019 Telephone Care Coordination [address] [place] [address] Kevin Whiteside DO [address] [place] [address] [facility] Care Coordination Services Allergies Active Allergy Reactions Severity Noted Date Comments Heparin 09/04/2009 Heparin Induced Thrombocytopenia Empagliflozin Other (Please comment) Medium 05/17/2018 3 yeast infections in 6 weeks after starting Morphine And Related 09/16/1997 Hallucinations Tetanus Toxoid Other (Please comment) 06/15/2011 Passed out documented as of this encounter (statuses as of 03/26/2019) Medications Medication Sig Dispensed Refills Start Date [...] Tab 5 01/12/2019 Active Vitamin D, Ergocalciferol, 51447 units CapsuleIndications: Vitamin D deficiency Take one [...] A1c goal of 7.0%-8.0% ([facility]),Uncontrolled type 2 diabetes mellitus with stage 3 chronic kidney disease, with long-term current use of insulin ([facility]) Inject up to 160 units subcutaneously once daily as directed 72 mL 3 03/22/2019 Active documented as of this encounter (statuses as of 03/26/2019) Active Problems Problem Noted Date Other atherosclerosis of [place] arteries of extremities, left leg 02/26/2019 Impetigo [...] as of this encounter (statuses as of 03/26/2019) Resolved Problems Problem Noted Date Resolved Date [...] as of this encounter (statuses as of 03/26/2019) Immunizations Name Administration Dates Next Due Pneumococcal [...] encounter Miscellaneous Notes * Telephone Encounter - Mira Duong, [facility] [employer] Plant Worker - 03/26/2019 10:30 AM EDT LES talked with [facility] and [facility] and stated that they can't just order the modem for pt it has to be the whole system and there is a cost of around $300. Which either [facility] or the pt will be billedfor. LES will talk with CM to let her know and then contact the pt back and have her look harder for this as there will be a charge now. documented in this encounter Plan of Treatment Upcoming Encounters Date Type Specialty Care Team Description 03/27/2019 Pharmacy Pharmacy [facility] [place] [address] [address] 04/24/2019 Office Visit Sleep Disorders Celsa Tafoya CRNP [address] [address] [phone] 06/15/2019 Office Visit Cardiology Marjorie Powell PA-C [address] [address] [phone] Health Maintenance Due Date Last Done Comments DIABETES-EYE EXAM 02/24/2011 02/24/2010 (Do ne elsewhere), 12/18/2009, 02/18/2008 (Done elsewhere) PAP SMEAR-EVERY 3 YRS,AGES 21-65 05/11/2016 05/11/2013, 03/01/2008, 10/19/2006, Additional history exists CKD PHOS USE SMARTSET 73513 12/29/2018 04/0 01/2018, 08/26/2009, 08/25/2009, Additional history exists Influenza Vaccine (FLU shot) (#1) 2019 06/12/2018, 06/12/2018, 07/14/2017, Additional history exists BREAST CANCER SCREENING DISCUSSION YEARLY AGES 40-75 06/23/2019 06/23/2018, 05/09/2015, 07/12/2014, Additional history exists CKD GFR USE SMARTSET 05178 09/13/201903/14, 02/26/2019, 01/12/2019, Additional history exists DIABETES-HGBA1C EVERY 6 MONTHS 09/13/2019 03/14/2019, 09/27/2018, 05/01/2018, Additional history exists DIABETES-FOOT EXAM 01/02/2020 01/01/2019, 0 12/29/2017, 10/21/2016, Additional history exists CKD HGB USE SMARTSET 12560 02/27/202002/26, 12/23/2018, 12/08/2018, Additional history exists DIABETES-URINE [...] Documents on File Type Date Recorded Patient Motor Block Mechanic Expl anation Advanced Directive 08/22/2009 12:00 [...]
--- OUTSIDE RECORDS SUMMARY | 2023-06-01 05:47 | External Medical Summary | Summary of Care ---
Author Name Unknown Organization [place] [address] Care Team Providers Care Quality Assurance Intern Name Role Phone Kevin Whiteside DO Primary Care Provider Encounter Details Date Type Department Care Team Description 03/17/2019 Telephone Family Practice [facility] [address] [place] [address] Kevin Whiteside, [address] [facility] [address] [place] [address] Allergies Active Allergy Reactions Severity Noted Date Comments Heparin 09/04/2009 Heparin Induced Thrombocytopenia Empagliflozin Other (Please comment) Medium 05/17/2018 3 yeast infections in 6 weeks after starting Morphine And Related 09/16/1997 Hallucinations Tetanus Toxoid Other (Please comment) 06/15/2011 Passed out documented as of this encounter (statuses as of 03/28/2019) Medications Medication Sig Dispensed Refills Start Date [...] MG/3ML SOPNIndications:DM type 2, goal: symptom mgmt ([facility]) Inject 1.8 mg under the [...] Tab 5 01/12/2019 Active Vitamin D, Ergocalciferol, 84249 units CapsuleIndications:V itamin D deficiency Take one [...] units daily 3 Vial 12 03/14/2019 Active documented as of this encounter (statuses as of 03/28/2019) Active Problems Problem Noted Date Other atherosclerosis of [place] arteries of extremities, left leg 02/26/2019 Impetigo [...] 10/14/2014 Overview: ICD-10 update of inactive term [place] filter in place 08/19/2014 History of pulmonary [...] as of this encounter (statuses as of 03/28/2019) Resolved Problems Problem Noted Date Resolved Date [...] as of this encounter (statuses as of 03/28/2019) Immunizations Name Administration Dates Next Due Pneumococcal [...] Telephone Encounter - Kevin Whiteside DO - 03/17/2019 11:54 AM EDT No need to re-do at this time, I will get it at the next set of blood work, thank you. * Telephone Encounter - Kevin Whiteside DO - 03/17/2019 11:53 AM EDT ----- Message from JULIANNA Andrade sent at 03/15/2019 11:06 AM EDT ----- Regarding: Lab Anemia panel sample clotted...Would you like lab to recall patient for new specimen? If yes, will you kindly replace order? Thank you, Stanislaw documented in this encounter Plan of Treatment Upcoming Encounters Date Type Specialty Care Team Description 04/04/[address] [facility] [place] [address] [address] 04/24/2019 Office Visit Sleep Disorders Celsa Tafoya CRNP [address] [address] [phone] 06/15/2019 Office Visit Cardiology Marjorie Powell PA-C [address] [address] [phone] Health Maintenance Due Date Last Done Comments DIABETES-EYE EXAM 02/24/2011 02/24/2010 (Do ne elsewhere), 12/18/2009, 02/18/2008 (Done elsewhere) PAP SMEAR-EVERY 3 YRS,AGES 21-65 05/11/2016 05/11/2013, 03/01/2008, 10/19/2006, Additional history exists CKD PHOS USE SMARTSET 10112 12/29/2018 04/0 01/2018, 08/26/2009, 08/25/2009, Additional history exists Influenza Vaccine (FLU shot) (#1) 2019 06/12/2018, 06/12/2018, 07/14/2017, Additional history exists BREAST CANCER SCREENING DISCUSSION YEARLY AGES 40-75 06/23/2019 06/23/2018, 05/09/2015, 07/12/2014, Additional history exists CKD GFR USE SMARTSET 21298 09/13/201903/14, 02/26/2019, 01/12/2019, Additional history exists DIABETES-HGBA1C EVERY 6 MONTHS 09/13/2019 03/14/2019, 09/27/2018, 05/01/2018, Additional history exists DIABETES-FOOT EXAM 01/02/2020 01/01/2019, 0 12/29/2017, 10/21/2016, Additional history exists CKD HGB USE SMARTSET 80111 02/27/202002/26, 12/23/2018, 12/08/2018, Additional history exists DIABETES-URINE [...] Documents on File Type Date Recorded Patient Cash Application 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 Expl anation Advanced Directive 08/22/2009 12:00 [...]
--- OUTSIDE RECORDS SUMMARY | 2023-06-01 05:47 | External Medical Summary | Summary of Care ---
Author Name Unknown Organization [place] [address] Care Team Providers Care Floor Clerk Name Role Phone Kevin Whiteside DO Primary Care Provider Reason for Visit * Reason Comments Medication Question Triseba not sent in to pharmacy yet Encounter Details Date Type Department Care Team Description 03/30/2019 Telephone Family Practice [facility] [address] [employer] [place] [address] Kevin Whiteside, [address] [employer] [facility] [address] [place] [address] [phone] Medication Question (Triseba not sent in t... Allergies Active Allergy Reactions Severity Noted Date Comments Heparin 09/04/2009 Heparin Induced Thrombocytopenia Empagliflozin Other (Please comment) Medium 05/17/2018 3 yeast infections in 6 weeks after starting Morphine And Related 09/16/1997 Hallucinations Tetanus Toxoid Other (Please comment) 06/15/2011 Passed out documented as of this encounter (statuses as of 04/02/2019) Medications Medication Sig Dispensed Refills Start Date [...] SOPNIndications:DM type 2, goal: symptom mgmt ([facility]) Inject 1.8 mg under the skin [...] Tab 5 01/12/2019 Active Vitamin D, Ergocalciferol, 71239 units CapsuleIndications: Vitamin D deficiency Take one [...] A1c goal of 7.0%-8.0% ([facility]),Uncontrolled type 2 diabetes mellitus with stage 3 chronic kidney disease, with long-term current use of insulin ([facility]) Inject up to 160 units subcutaneously once daily as directed 72 mL 3 03/22/2019 Active documented as of this encounter (statuses as of 04/02/2019) Active Problems Problem Noted Date Other atherosclerosis of [place] arteries of extremities, left leg 02/26/2019 Impetigo [...] as of this encounter (statuses as of 04/02/2019) Resolved Problems Problem Noted Date Resolved Date [...] as of this encounter (statuses as of 04/02/2019) Immunizations Name Administration Dates Next Due Pneumococcal [...] encounter Miscellaneous Notes * Telephone Encounter - Amber Prado OSA - 04/02/2019 11:46 AM EDT Reason for patient's call: Triseba not sent in to pharmacy yet Patient stated she needs vials, not flexpens * Telephone Encounter - Jennifer Gann LPN - 03/30/2019 2:42 PM EDT Received email that Tresiba was approved by insurance Patient and pharmacy made aware documented in this encounter Plan of Treatment Upcoming Encounters Date Type Specialty Care Team Description 04/04/2019 Pharmacy [facility]acy [facility] [place] [address] [address] 04/24/2019 Office Visit Sleep Disorders Celsa Tafoya CRNP [address] [address] [phone] 06/15/2019 Office Visit Cardiology Marjorie Powell PA-C [address] [address] [phone] Health Maintenance Due Date Last Done Comments DIABETES-EYE EXAM 02/24/2011 02/24/2010 (Do ne elsewhere), 12/18/2009, 02/18/2008 (Done elsewhere) PAP SMEAR-EVERY 3 YRS,AGES 21-65 05/11/2016 05/11/2013, 03/01/2008, 10/19/2006, Additional history exists CKD PHOS USE SMARTSET 95970 12/29/2018 04/0 01/2018, 08/26/2009, 08/25/2009, Additional history exists Influenza Vaccine (FLU shot) (#1) 2019 06/12/2018, 06/12/2018, 07/14/2017, Additional history exists BREAST CANCER SCREENING DISCUSSION YEARLY AGES 40-75 06/23/2019 06/23/2018, 05/09/2015, 07/12/2014, Additional history exists CKD GFR USE SMARTSET 12999 09/13/201903/14, 02/26/2019, 01/12/2019, Additional history exists DIABETES-HGBA1C EVERY 6 MONTHS 09/13/2019 03/14/2019, 09/27/2018, 05/01/2018, Additional history exists DIABETES-FOOT EXAM 01/02/2020 01/01/2019, 0 12/29/2017, 10/21/2016, Additional history exists CKD HGB USE SMARTSET 14562 02/27/202002/26, 12/23/2018, 12/08/2018, Additional history exists DIABETES-URINE [...] Documents on File Type Date Recorded Patient Snuff Container Inspector Expl anation Advanced Directive 08/22/2009 12:00 [...]
--- OUTSIDE RECORDS SUMMARY | 2023-06-01 05:47 | External Medical Summary | Summary of Care ---
Author Name Unknown Organization [place] [address] Care Team Providers Care Ladle Pourer Name Role Phone Kevin Whiteside DO Primary Care Provider Reason for Visit * Reason Comments Medication Question Triseba not sent in to pharmacy yet Encounter Details Date Type Department Care Team Description 03/30/2019 Telephone Family Practice [facility] [address] [facility] [place] [address] Kevin Whiteside, [address] [facility] [address] [place] [address] [phone] Medication Question (Triseba not sent in t... [...] SOPNIndications:DM type 2, goal: symptom mgmt ([facility]) Inject 1.8 mg under the skin daily. [...] Tab 5 01/12/2019 Active Vitamin D, Ergocalciferol, 12115 units CapsuleIndications: Vitamin D deficiency Take one [...] of 7.0%-8.0% ([facility]),Uncontrolled type 2 diabetes mellitus with stage 3 chronic kidney disease, with long-term current use of insulin ([facility]) Inject up to 160 units subcutaneously once daily as directed 72 mL 3 03/22/2019 Active documented as of this encounter (statuses as of 04/02/2019) Active Problems Problem Noted Date Other atherosclerosis of [place] arteries of extremities, left leg 02/26/2019 Impetigo [...] 10/14/2014 Overview: ICD-10 update of inactive term [place] filter in place 08/19/2014 History of pulmonary [...] Encounter - Chasity Del Toro LPN - 04/02/2019 11:58 AM EDT Pt calling in asking if Tresiba was sent to pharmacy. I advised that it was and she stated she spoke to pharmacist Rose and she informed her she needsvials. I advised she does not need vials for Tresiba, it is a pre-filled pen. Spoke to pharmacist Aravind at [facility] - he states pt already received her Tresiba pens and does not needvials. Spoke to Rose at [facility]. Pt needs to clam picker Novolog vials from pharmacy and bring to appt 04/04 to start pump. Spoke to Aravind again and confirmed Novolog vials are what is needed. He states they will get these ready for pt. Pharmacy aware and verbalized understanding. States she already picked these up a couple weeks ago. Advised that the vials are what she needs to bring to Tuesday appt. * Telephone Encounter - Amber rPado OSA - 04/02/2019 11:46 AM EDT Reason [...] Specialty Care Team Description 04/04/2019 Pharmacy [facility]acy [facility] [place] [address] [address] 04/24/2019 Office Visit Sleep Disorders Celsa Tafoya CRNP [address] [address] [phone] 06/15/2019 Office Visit Cardiology Marjorie Powell PA-C [address] [address] [phone] Health Maintenance Due Date Last Done Comments DIABETES-EYE EXAM 02/24/2011 02/24/2010 (Do ne elsewhere), 12/18/2009, 02/18/2008 (Done elsewhere) PAP SMEAR-EVERY 3 YRS,AGES 21-65 05/11/2016 05/11/2013, 03/01/2008, 10/19/2006, Additional history exists CKD PHOS USE SMARTSET 70259 12/29/2018 04/0 01/2018, 08/26/2009, 08/25/2009, Additional history exists Influenza Vaccine (FLU shot) (#1) 2019 06/12/2018, 06/12/2018, 07/14/2017, Additional history exists BREAST CANCER SCREENING DISCUSSION YEARLY AGES 40-75 06/23/2019 06/23/2018, 05/09/2015, 07/12/2014, Additional history exists CKD GFR USE SMARTSET 56494 09/13/201903/14, 02/26/2019, 01/12/2019, Additional history exists DIABETES-HGBA1C EVERY 6 MONTHS 09/13/2019 03/14/2019, 09/27/2018, 05/01/2018, Additional history exists DIABETES-FOOT EXAM 01/02/2020 01/01/2019, 0 12/29/2017, 10/21/2016, Additional history exists CKD HGB USE SMARTSET 55656 02/27/202002/26, 12/23/2018, 12/08/2018, Additional history exists DIABETES-URINE [...] on File Type Date Recorded Patient Asbestos Shingle Inspector Expl anation Advanced Directive 08/22/2009 12:00 [...]
--- OUTSIDE RECORDS SUMMARY | 2023-06-01 05:47 | External Medical Summary | Summary of Care ---
Author Name Unknown Organization [place] [address] Care Team Providers Care High Court Justice Name Role Phone Kevin Whiteside Primary Care Provider Reason for Visit * Reason Comments Dosage Adjustment In Person (Anticoag Cl inic) Diabetes Follow-Up Insulin Pump Encounter Details Date Type Department Care Team Description 04/04/2019 Pharmacy Pharmacy, [facility] [address] [facility] [place] [address] [facility] [address] [facility] [place] [address] Uncontrolled type 2 diabetes mellitus with stage [...] Tab 5 01/12/2019 Active Vitamin D, Ergocalciferol, 25325 units CapsuleIndications: Vitamin D deficiency Take one capsule by mouth once a week 13 Cap 0 01/13/2019 Active Blood Glucose Monitoring Suppl (Dataminr ULTRA 2) w/Device KIT Use to test [...] use of insulin ([facility]) Inject up to 160 units subcutaneously once daily as directed 72 mL 3 03/22/2019 Active documented as of this encounter (statuses as of 04/04/2019) Active Problems Problem Noted Date Other atherosclerosis of [place] arteries of extremities, left leg 02/26/2019 Impetigo [...] 10/14/2014 Overview: ICD-10 update of inactive term [place] filter in place 08/19/2014 History of [...] this encounter Progress Notes * Rose Barton, [facility] - 04/04/2019 10:46 AM EDT Medication Therapy Disease Management CSII Start Training Stephanie Camp is an 63 year old year old female being seen in the Medication Therapy Disease Management Clinic today for an insulin pump start training. Patient has not completed online My Learning classes for Basics of Insulin Pump Therapy at my.[employer]Hobby/[email or web address] Patient has not read the Basics of Insulin Pump Therapy workbook. Patient has not completed practice exercises for Medtronic 630 G(ie. 530G) pump online or from workbook. Current Diabetes Medications: Tresiba 160 units daily Victoza 1.8 mg daily Novolog 25 units with breakfast, 18 units lunch, 28 units at dinner + CF 1:10 over 120 at meals andbedtime Patient Active Problem List Diagnosis Code Primary [...] major depressive disorder ([facility]) F33.0 Impetigo L01.00 Lumbar radiculopathy M54.16 Other atherosclerosis of [place] arteries of extremities, left leg ([facility]) I70.292 Review of patient's allergies indicates: Allergen Reactions Jardiance [Empagliflozin] Other (Please comment) 3 yeast infections in 6 weeks after starting Heparin Heparin Induced Thrombocytopenia Morphine And Related Hallucinations Tetanus Toxoid Other (Please comment) Passed out Current Outpatient Medications Medication Sig Dispense Refill Insulin Degludec (TRESIBA FLEXTOUCH) 200 UNIT/ML SOPN [...] day. 30 mL 4 Vitamin D, Ergocalciferol, 90371 units Capsule Take one capsule by mouth [...] following reasons: The patient has a prior [place] or stroke diagnosisEstimated body mass index is 55.75 kg/m as calculated from the following: Height as of 01/23/19: 1.651 m (5' 5"). Weight as of 03/14/19: 152 kg (335 lb).BP Readings from Last 3 Encounters: 03/14/19 102/60 03/07/19 96/64 02/26/19 146/68 No POC components found HEMOGLOBIN, A1C(%) Nessa [...] 9:39A 10/26/18 23 FINAL Assessment & Plan: The following education was completed in clinic today: Reviewed pump basics, including: Pump supplies and how to reorder Home screen, pump buttons, battery and reservoir compartments, serial number [id number] help line and clinic phone number for 18/04 support Modes of operation (normal, temp basal, low battery/reservoir, suspend) Status screen Main menu features Initial pump settings programmed as noted below under medications. Reviewed how to update alert type and time/date Basal rate programmed Bolus settings programmed, including: ICR, ISF, BG target & active insulin Taught patient how to use bolus wizard, including: Based on ICR/fixed dose only (no glucose reading) Correction dose only (blood glucose reading, no carb intake) Carb intake plus correction Taught patient how to manage hyperglycemia (blood glucose >250mg/dL), including: If bolus wizard ON, enter blood glucose into pump and deliver correction dose If bolus wizard OFF, give manual bolus using correction scale Recheck blood glucose in 1-2 hours If blood glucose remains >250mg/dL: - give a correction dose via syringe - change infusion set, site, reservoir and insulin Contact clinic if blood glucose remains >250mg/dL despite above Reviewed suspend feature and discussed appropriate use. Patient demonstrated ability to fill reservoir and attach infusion kit (set change) Patient instructed to SMBG at least 4 times daily, before each meal and at bedtime. Diabetes Medications: (pump initiation settings scanned in [employer]) Victoza 1.8 mg daily Medtronic 630G Insulin Pump (Serial Number: [id number]) Infusion Set: SureT Insulin: Novolog Basal Rate: 2.6units/hour Bolus: 20 units with breakfast, 20units with lunch and 20units with supper Bolus wizard: on and using ICR: 4 ISF: 14 Blood Glucose Goals: 120-150 Active Insulin Time: 4 hours Patient hereby agrees they have received the full training today pursuant to the [employer] curriculum for: Pump Only Training (new to pump, previously on MDI) on 04/04/2019, 10:46 AM. Attestation by Rose Barton luis. Return to Clinic: 2 week(s) Next Office Visit: 04/05/2019 Scheduled Provider(s): [facility] [place] Barton luis Clinical Pharmacist Medication Therapy Disease Management 04/04/2019, 10:46 AM documented in this encounter Plan of Treatment Upcoming Encounters Date Type Specialty Care Team Description 04/05/2019 Pharmacy Pharmacy [facility] [address] [address] 04/18/2019 Pharmacy Pharmacy [facility] [place] [address] [address] 04/24/2019 Office Visit Sleep Disorders Celsa Tafoya CRNP [address] [address] [phone] 06/15/2019 Office Visit Cardiology Marjorie Powell PA-C [address] [address] [phone] Health Maintenance Due Date Last Done Comments DIABETES-EYE EXAM 02/24/2011 02/24/2010 (Do ne elsewhere), 12/18/2009, 02/18/2008 (Done elsewhere) PAP SMEAR-EVERY 3 YRS,AGES 21-65 05/11/2016 05/11/2013, 03/01/2008, 10/19/2006, Additional history exists CKD PHOS USE SMARTSET 23977 12/29/2018 04/0 01/2018, 08/26/2009, 08/25/2009, Additional history exists Influenza Vaccine (FLU shot) (#1) 2019 06/12/2018, 06/12/2018, 07/14/2017, Additional history exists BREAST CANCER SCREENING DISCUSSION YEARLY AGES 40-75 06/23/2019 06/23/2018, 05/09/2015, 07/12/2014, Additional history exists CKD GFR USE SMARTSET 44793 09/13/201903/14, 02/26/2019, 01/12/2019, Additional history exists DIABETES-HGBA1C EVERY 6 MONTHS 09/13/2019 03/14/2019, 09/27/2018, 05/01/2018, Additional history exists DIABETES-FOOT EXAM 01/02/2020 01/01/2019, 0 12/29/2017, 10/21/2016, Additional history exists CKD HGB USE SMARTSET 02562 02/27/202002/26, 12/23/2018, 12/08/2018, Additional history exists DIABETES-URINE [...] Documents on File Type Date Recorded Patient Installment Agent Expl anation Advanced Directive 08/22/2009 12:00 [...]
--- OUTSIDE RECORDS SUMMARY | 2023-06-01 05:47 | External Medical Summary | Summary of Care ---
Author Name Unknown Organization [place] [address] Care Team Providers Care Cyber Forensic Specialist Name Role Phone Kevin Whiteside Primary Care Provider Reason for Visit * Reason Comments case management Encounter Details Date Type Department Care Team Description 04/03/2019 Telephone Internal Medicine [address] [address] Frances Nicholson RN [address] [place] [address] case management Allergies Active Allergy [...] MG/3ML SOPNIndications:DM type 2, goal: symptom mgmt ([facility]) Inject 1.8 mg under the [...] A1c goal of 7.0%-8.0% ([facility]) Take 1 Cap by mouth 3 times a day. 270 Cap 5 01/01/2019 Active spironolactone (ALDACTONE) 25 MG Tablet Take 0.5 Tabs by mouth daily. 45 Tab 5 01/12/2019 Active Vitamin D, Ergocalciferol, 37283 units CapsuleIndications: Vitamin D deficiency Take one [...] hemoglobin A1c goal of 7.0%-8.0% ([facility]),Uncontrolled type 2 diabetes mellitus with stage 3 chronic kidney disease, with long-term current use of insulin ([facility]) Inject up to 160 units subcutaneously once daily as directed 72 mL 3 03/22/2019 Active documented as of this encounter (statuses as of 04/03/2019) Active Problems Problem Noted Date Other atherosclerosis of [place] arteries of extremities, left leg 02/26/2019 Impetigo [...] Encounter - Frances Nicholson RN - 04/03/2019 10:42 AM EDT Call placed to pt's phone number listed in [facility], No answer, left message on requesting return call. Frances Nicholson RN. [facility] Manager Pool [phone] documented in this encounter Plan of Treatment Upcoming Encounters Date Type Specialty Care Team Description 04/04/2019 Pharmacy Pharmacy [facility]ie [address] [place] [address] 04/24/2019 Office Visit Sleep Disorders Celsa Tafoya CRNP [address] [address] [phone] 06/15/2019 Office Visit Cardiology Marjorie Powell PA-C [address] [address] [phone] Health Maintenance Due Date Last Done Comments DIABETES-EYE EXAM 02/24/2011 02/24/2010 (Do ne elsewhere), 12/18/2009, 02/18/2008 (Done elsewhere) PAP SMEAR-EVERY 3 YRS,AGES 21-65 05/11/2016 05/11/2013, 03/01/2008, 10/19/2006, Additional history exists CKD PHOS USE SMARTSET 27736 12/29/2018 04/0 01/2018, 08/26/2009, 08/25/2009, Additional history exists Influenza Vaccine (FLU shot) (#1) 2019 06/12/2018, 06/12/2018, 07/14/2017, Additional history exists BREAST CANCER SCREENING DISCUSSION YEARLY AGES 40-75 06/23/2019 06/23/2018, 05/09/2015, 07/12/2014, Additional history exists CKD GFR USE SMARTSET 73482 09/13/201903/14, 02/26/2019, 01/12/2019, Additional history exists DIABETES-HGBA1C EVERY 6 MONTHS 09/13/2019 03/14/2019, 09/27/2018, 05/01/2018, Additional history exists DIABETES-FOOT EXAM 01/02/2020 01/01/2019, 0 12/29/2017, 10/21/2016, Additional history exists CKD HGB USE SMARTSET 37058 02/27/202002/26, 12/23/2018, 12/08/2018, Additional history exists DIABETES-URINE [...] Documents on File Type Date Recorded Patient Lube Worker Expl anation Advanced Directive 08/22/2009 12:00 [...]
--- OUTSIDE RECORDS SUMMARY | 2023-06-01 05:47 | External Medical Summary | Summary of Care ---
Author Name Unknown Organization [place] [address] Care Team Providers Care Back Maker Name Role Phone Kevin Whiteside Primary Care Provider Reason for Visit * Reason Comments case management Encounter Details Date Type Department Care Team Description 04/03/2019 Telephone Internal Medicine [address] [address] Frances Nicholson RN [address] [place] [address] case management Allergies Active Allergy [...] MG/3ML SOPNIndications:DM type 2, goal: symptom mgmt ([facility]) Inject 1.8 mg under the [...] Tab 5 01/12/2019 Active Vitamin D, Ergocalciferol, 96833 units CapsuleIndications: Vitamin D deficiency Take one [...] A1c goal of 7.0%-8.0% ([facility]),Uncontrolled type 2 diabetes mellitus with stage 3 chronic kidney disease, with long-term current use of insulin ([facility]) Inject up to 160 units subcutaneously once daily as directed 72 mL 3 03/22/2019 Active documented as of this encounter (statuses as of 04/03/2019) Active Problems Problem Noted Date Other atherosclerosis of [place] arteries of extremities, left leg 02/26/2019 Impetigo [...] placed to pt's phone number listed in [facility], No answer, left message on requesting return call. Frances Nicholson RN. [facility] Controls Project Engineer [phone] documented in this encounter Plan of Treatment Upcoming Encounters Date Type Specialty Care Team Description 04/04/2019 Pharmacy Pharmacy [facility] Jeramie [address] [address] 04/24/2019 Office Visit Sleep Disorders Celsa Tafoya CRNP [address] [address] [phone] 06/15/2019 Office Visit Cardiology Marjorie Powell PA-C [address] [address] [phone] Health Maintenance Due Date Last Done Comments DIABETES-EYE EXAM 02/24/2011 02/24/2010 (Do ne elsewhere), 12/18/2009, 02/18/2008 (Done elsewhere) PAP SMEAR-EVERY 3 YRS,AGES 21-65 05/11/2016 05/11/2013, 03/01/2008, 10/19/2006, Additional history exists CKD PHOS USE SMARTSET 81896 12/29/2018 04/0 01/2018, 08/26/2009, 08/25/2009, Additional history exists Influenza Vaccine (FLU shot) (#1) 2019 06/12/2018, 06/12/2018, 07/14/2017, Additional history exists BREAST CANCER SCREENING DISCUSSION YEARLY AGES 40-75 06/23/2019 06/23/2018, 05/09/2015, 07/12/2014, Additional history exists CKD GFR USE SMARTSET 14341 09/13/201903/14, 02/26/2019, 01/12/2019, Additional history exists DIABETES-HGBA1C EVERY 6 MONTHS 09/13/2019 03/14/2019, 09/27/2018, 05/01/2018, Additional history exists DIABETES-FOOT EXAM 01/02/2020 01/01/2019, 0 12/29/2017, 10/21/2016, Additional history exists CKD HGB USE SMARTSET 63329 02/27/202002/26, 12/23/2018, 12/08/2018, Additional history exists DIABETES-URINE [...] Documents on File Type Date Recorded Patient Trim Setter Expl anation Advanced Directive 08/22/2009 12:00 [...]
--- OUTSIDE RECORDS SUMMARY | 2023-06-01 05:47 | External Medical Summary | Summary of Care ---
Author Name Unknown Organization [place] [address] Care Team Providers Care Strainer Tender Name Role Phone Kevin Whiteside DO Primary Care Provider Reason for Visit * Reason Comments [facility] Care Coordination Services Encounter Details Date Type Department Care Team Description 03/26/2019 Telephone Care Coordination [address] [place] [address] Kevin Whiteside DO [address] [place] [address] [facility] Care Coordination Services Allergies Active Allergy Reactions [...] Tab 5 01/12/2019 Active Vitamin D, Ergocalciferol, 37002 units CapsuleIndications: Vitamin D deficiency Take one [...] hemoglobin A1c goal of 7.0%-8.0% ([facility]),Uncontrolled type 2 diabetes mellitus with stage 3 chronic kidney disease, with long-term current use of insulin ([facility]) Inject up to 160 units subcutaneously once daily as directed 72 mL 3 03/22/2019 Active documented as of this encounter (statuses as of 03/26/2019) Active Problems Problem Noted Date Other atherosclerosis of [place] arteries of extremities, left leg 02/26/2019 [...] Telephone Encounter - Mira Duong, [facility] Operator - 03/26/2019 10:46 AM EDT LES talked with CM about this modem issue being lost and said to contact pt and if she can't find the modem by tuesday she can call CM/LES to let them know and then mail her scales back to the company. documented in this encounter Plan of Treatment Upcoming Encounters Date Type Specialty Care Team Description 03/27/2019 Pharmacy Pharmacy [facility] Jeramie [address] [address] 04/24/2019 Office Visit Sleep Disorders Celsa Tafoya CRNP [address] [address] [phone] 06/15/2019 Office Visit Cardiology Marjorie Powell PA-C [address] [address] [phone] Health Maintenance Due Date Last Done Comments DIABETES-EYE EXAM 02/24/2011 02/24/2010 (Do ne elsewhere), 12/18/2009, 02/18/2008 (Done elsewhere) PAP SMEAR-EVERY 3 YRS,AGES 21-65 05/11/2016 05/11/2013, 03/01/2008, 10/19/2006, Additional history exists CKD PHOS USE SMARTSET 54707 12/29/2018 04/0 01/2018, 08/26/2009, 08/25/2009, Additional history exists Influenza Vaccine (FLU shot) (#1) 2019 06/12/2018, 06/12/2018, 07/14/2017, Additional history exists BREAST CANCER SCREENING DISCUSSION YEARLY AGES 40-75 06/23/2019 06/23/2018, 05/09/2015, 07/12/2014, Additional history exists CKD GFR USE SMARTSET 04701 09/13/201903/14, 02/26/2019, 01/12/2019, Additional history exists DIABETES-HGBA1C EVERY 6 MONTHS 09/13/2019 03/14/2019, 09/27/2018, 05/01/2018, Additional history exists DIABETES-FOOT EXAM 01/02/2020 01/01/2019, 0 12/29/2017, 10/21/2016, Additional history exists CKD HGB USE SMARTSET 93597 02/27/202002/26, 12/23/2018, 12/08/2018, Additional history exists DIABETES-URINE [...] Documents on File Type Date Recorded Patient Java Analyst Expl anation Advanced Directive 08/22/2009 12:00 [...]
--- OUTSIDE RECORDS SUMMARY | 2023-06-01 05:47 | External Medical Summary | Summary of Care ---
Author Name Unknown Organization [place] [address] Care Team Providers Care Die Maker Trim Name Role Phone Migue Whiteside DO Primary Care Provider Reason for Visit * Reason Comments Advice Encounter Details Date Type Department Care Team Description 04/04/2019 Telephone Family Practice [facility] [address] [facility] [place] [address] Migue Whiteside, [address] [facility] [place] [place] [address] Advice Allergies Active Allergy [...] MG/3ML SOPNIndications:DM type 2, goal: symptom mgmt ([facility]) Inject 1.8 mg under the [...] Tab 5 01/12/2019 Active Vitamin D, Ergocalciferol, 39290 units CapsuleIndications: Vitamin D deficiency Take one [...] 50.0 to 59.9 in adult ([facility]),Hypoxemia,ELISSA (obstructive sleep apnea),HTN, goal below [...] hemoglobin A1c goal of 7.0%-8.0% ([facility]),Uncontrolled type 2 diabetes mellitus [...] Problems Problem Noted Date Other atherosclerosis of [place] arteries of extremities, left leg 02/26/2019 Impetigo [...] unable to sleep Caller was transferred to [facility] at the dedicated phone nurse line. documented in this encounter Plan of Treatment Upcoming Encounters Date Type Specialty Care Team Description 04/05/2019 Pharmacy Pharmacy [facility] [address] [facility] [place] [address] 04/18/2019 Pharmacy Pharmacy [facility] [address] [place] [address] 04/24/2019 Office Visit Sleep Disorders Celsa Tafoya CRNP [address] [address] [phone] 06/15/2019 Office Visit Cardiology [facility] Powell PA-C [address] [facility] [place] [address] [phone] Health Maintenance Due Date Last Done Comments DIABETES-EYE EXAM 02/24/2011 02/24/2010 (Do ne elsewhere), 12/18/2009, 02/18/2008 (Done elsewhere) PAP SMEAR-EVERY 3 YRS,AGES 21-65 05/11/2016 05/11/2013, 03/01/2008, 10/19/2006, Additional history exists CKD PHOS USE SMARTSET 95908 12/29/2018 04/01/2018, 08/26/2009, 08/25/2009, Additional history exists Influenza Vaccine (FLU shot) (#1) 2019 06/12/2018, 06/12/2018, 07/14/2017, Additional history exists BREAST CANCER SCREENING DISCUSSION YEARLY AGES 40-75 06/23/2019 06/23/2018, 05/09/2015, 07/12/2014, Additional history exists CKD GFR USE SMARTSET 21706 09/13/201903/14, 02/26/2019, 01/12/2019, Additional history exists DIABETES-HGBA1C EVERY 6 MONTHS 09/13/2019 03/14/2019, 09/27/2018, 05/01/2018, Additional history exists DIABETES-FOOT EXAM 01/02/2020 01/01/2019, 0 12/29/2017, 10/21/2016, Additional history exists CKD HGB USE SMARTSET 46923 02/27/202002/26, 12/23/2018, 12/08/2018, Additional history exists DIABETES-URINE [...] Documents on File Type Date Recorded Patient Clay Hoister Expl anation Advanced Directive 08/22/2009 12:00 AM [...]
--- OUTSIDE RECORDS SUMMARY | 2023-06-01 05:48 | External Medical Summary ---
Author Name Unknown Address [address] [facility] [place] [address] Phone Organization [id number] Ordaz [address] [place] [address] Laboratory Report Ordering Provider Test Date Status LONG CAMARENA 03/14/2019 13:54:00 Final Observation Date Value Abnormality Reference Status Fasting status Patient Ql Reported 03/14/2019 13:56 >8 HOURS Final Triglyceride 03/14/2019 21:59 232 Above high normal <2 00 Final Performing Location [facility] [place] Ordaz [address] [employer] [place] [address]
--- OUTSIDE RECORDS SUMMARY | 2023-06-01 05:48 | External Medical Summary | Summary of Care ---
Author Name Unknown Organization [place] [address] Care Team Providers Care Lead Miner Blasting Name Role Phone Kevin Whiteside DO Primary Care Provider Reason for Visit * Reason Comments [facility] Care Coordination Services Encounter Details Date Type Department Care Team Description 03/26/2019 Telephone Care Coordination [address] [place] [address] Kevin Whiteside DO [address] [place] [address] [facility] Care Coordination Services Allergies Active Allergy Reactions [...] Tab 5 01/12/2019 Active Vitamin D, Ergocalciferol, 93469 units CapsuleIndications: Vitamin D deficiency Take one [...] Problems Problem Noted Date Other atherosclerosis of [place] arteries of extremities, left leg 02/26/2019 Impetigo [...] Miscellaneous Notes * Telephone Encounter - Mira Duong [facility] - 03/26/2019 10:20 AM EDT LES contacted pt to schedule a home visit. She stated in the move she lost or had thrown away the box and plug for the scales and BP blue tooth. LES will fu with [facility] and see if pt can get a new set. documented in this encounter Plan of Treatment Upcoming Encounters Date Type Specialty Care Team Description 03/27/2019 Pharmacy Pharmacy [facility] Jeramie [address] [address] [address] 04/24/2019 Office Visit Sleep Disorders Celsa Tafoya CRNP [address] [address] [address] [phone] 06/15/2019 Office Visit Cardiology Marjorie Powell PA-C [address] [address] [phone] Health Maintenance Due Date Last Done Comments DIABETES-EYE EXAM 02/24/2011 02/24/2010 (Do ne elsewhere), 12/18/2009, 02/18/2008 (Done elsewhere) PAP SMEAR-EVERY 3 YRS,AGES 21-65 05/11/2016 05/11/2013, 03/01/2008, 10/19/2006, Additional history exists CKD PHOS USE SMARTSET 83526 12/29/2018 04/0 01/2018, 08/26/2009, 08/25/2009, Additional history exists Influenza Vaccine (FLU shot) (#1) 2019 06/12/2018, 06/12/2018, 07/14/2017, Additional history exists BREAST CANCER SCREENING DISCUSSION YEARLY AGES 40-75 06/23/2019 06/23/2018, 05/09/2015, 07/12/2014, Additional history exists CKD GFR USE SMARTSET 45364 09/13/201903/14, 02/26/2019, 01/12/2019, Additional history exists DIABETES-HGBA1C EVERY 6 MONTHS 09/13/2019 03/14/2019, 09/27/2018, 05/01/2018, Additional history exists DIABETES-FOOT EXAM 01/02/2020 01/01/2019, 0 12/29/2017, 10/21/2016, Additional history exists CKD HGB USE SMARTSET 72205 02/27/202002/26, 12/23/2018, 12/08/2018, Additional history exists DIABETES-URINE [...] Documents on File Type Date Recorded Patient Insurance Account Executive Expl anation Advanced Directive 08/22/2009 [...]
--- OUTSIDE RECORDS SUMMARY | 2023-06-01 05:48 | External Medical Summary | Summary of Care ---
Author Name Unknown Organization [place] [address] Care Team Providers Care Adult Live In Caregiver Name Role Phone Migue Whiteside DO Primary Care Provider Reason for Visit * Reason Comments Medication Refill Encounter Details Date Type Department Care Team Description 03/22/2019 Refill Family Practice [facility] [address] [place] [place] [address] Migue Whiteside DO 132 [facility] [place] [address] Type 2 diabetes mellitus with hemoglobin A1c goal of 7.0%-8.0% ([facility])*; Uncontrolled type 2 diabetes mellitus with stage 3 chronic kidney disease, with long-term current use of insulin ([facility]) Allergies Active Allergy Reactions Severity Noted Date Comments Heparin 09/04/2009 Heparin Induced Thrombocytopenia Empagliflozin Other (Please comment) Medium 05/17/2018 3 yeast infections in 6 weeks after starting Morphine And Related 09/16/1997 Hallucinations Tetanus Toxoid Other (Please comment) 06/15/2011 Passed out documented as of this encounter (statuses as of 03/22/2019) Medications Medication Sig Dispensed Refills Start Date [...] meds 90 Tab 5 08/01/20 18 Active liraglutide (VICTOZA) 18 MG/3ML SOPNIndications:DM type 2, goal: symptom mgmt ([facility]) Inject 1.8 mg under the skin daily. As directed 9 Pre-filled Pen Syringe Dosing Unit 11 08/01/20 18 Active Nortriptyline HCl (PAMELOR) 50 [...] 5 01/13/20 19 Active Vitamin D, Ergocalciferol, 16931 units CapsuleIndications :Vitamin D deficiency Take one capsule by mouth once a week 13 Cap 0 01/14/20 19 Active Blood Glucose Monitoring Suppl ([employer] ULTRA 2) w/Device KIT Use to test [...] directed 72 mL 3 03/22/20 19 Active Insulin Degludec (TRESIBA FLEXTOUCH) 200 UNIT/ML SOPN Inject up to 160 units subcutaneously once daily as directed 9 mL 5 11/22/19 19 019 Discontinued documented as of this encounter (statuses as of 03/22/2019) Active Problems Problem Noted Date Other atherosclerosis of [place] arteries of extremities, left leg 02/26/2019 Impetigo [...] 10/14/2014 Overview: ICD-10 update of inactive term [place] filter in place 08/19/2014 History of pulmonary [...] as of this encounter (statuses as of 03/22/2019) Resolved Problems Problem Noted Date Resolved Date [...] as of this encounter (statuses as of 03/22/2019) Immunizations Name Administration Dates Next Due Pneumococcal [...] Notes * Telephone Encounter - Nohemi Hernandez [facility] - 03/22/2019 12:18 PM EDT Signed Prescriptions: Disp Refills Insulin Degludec (TRESIBA FLEXTOUCH) 200 U*72 mL 3 Sig: Inject up to 160 units subcutaneously once daily as directedAuthorizing Provider: MIGUE WHITESIDE User: NOHEMI HERNANDEZ * Telephone Encounter - Yesi Hand [facility] - 03/22/2019 12:06 PM EDT Insurance is requesting a 90-day supply. Pre-edited RXs as such. Please review and approve if appropriate. Pending Prescriptions: Disp Refills Insulin Degludec (TRESIBA FLEXTOUCH) 200 *72 mL 0 Sig: Inject up to 160 units subcutaneously once daily as directed Last Office Visit: 03/07/2019 Next Office Visit: No Future Appointments If no future appointments scheduled, and last appointment is greater than a year ago, please schedule patient for a follow-up appointment Last date the medication was ordered: 11/22/18 Patient Phone Numbers Labs: Lab Results Component [...] Specialty Care Team Description 03/27/2019 Pharmacy Pharmacy [facility] [place] [address] [address] [address] 04/24/2019 Office Visit Sleep Disorders Celsa Tafoya CRNP [address] [address] [address] [phone] 06/15/2019 Office Visit Cardiology Marjorie Powell PA-C [address] [address] [address] [phone] Health Maintenance Due Date Last Done Comments DIABETES-EYE EXAM 02/24/2011 02/24/2010 (Do ne elsewhere), 12/18/2009, 02/18/2008 (Done elsewhere) PAP SMEAR-EVERY 3 YRS,AGES 21-65 05/11/2016 05/11/2013, 03/01/2008, 10/19/2006, Additional history exists CKD PHOS USE SMARTSET 71933 12/29/2018 04/0 01/2018, 08/26/2009, 08/25/2009, Additional history exists BREAST CANCER SCREENING DISCUSSION YEARLY AGES 40-75 06/23/2019 06/23/2018, 05/09/2015, 07/12/2014, Additional history exists CKD GFR USE SMARTSET 42053 09/13/201903/14, 02/26/2019, 01/12/2019, Additional history exists DIABETES-HGBA1C EVERY 6 MONTHS 09/13/2019 03/14/2019, 09/27/2018, 05/01/2018, Additional history exists DIABETES-FOOT EXAM 01/02/2020 01/01/2019, 0 12/29/2017, 10/21/2016, Additional history exists CKD HGB USE SMARTSET 59307 02/27/202002/26, 12/23/2018, 12/08/2018, Additional history exists DIABETES-URINE MICROALBUMIN EVERY 12 MONTHS 02/27/2020 02/26/2019, 12/23/2018, 12/08/2018, Additional history exists Yearly B-12 03/14/2020 03/14/2019, 05/16/2018 PNEUMOCOCCAL 19-64 MEDIUM RISK Completed 08/22/2009, 06/15/2006 *DEPRESSION SCREENING, ANNUAL FOR PTS 18 AND OVER Addressed 06/12/2018 Overridden wi th the intention of not completing the topic Influenza Vaccine (FLU shot) Completed 06/12/2018, 06/12/2018, 07/14/2017, Additional history exists MENINGOCOCCAL (MENACTRA) Aged Out No longer eligible based on patient's age to complete this topic documented as of this encounter Implants Not on filedocumented as of this encounter Visit Diagnoses Diagnosis Type 2 diabetes mellitus with hemoglobin A1c goal of 7.0%-8.0% (HCC)- Primary Uncontrolled type 2 diabetes mellitus with stage 3 chronic kidney disease, with long-term current use of insulin ([facility]) documented in this encounter Advance Directives Documents on File Type Date Recorded Patient Local Hazmat Driver Expl anation Advanced Directive 08/22/2009 12:00 [...]
--- OUTSIDE RECORDS SUMMARY | 2023-06-01 05:48 | External Medical Summary | Summary of Care ---
Author Name Unknown Organization [place] [address] Care Team Providers Care Medicine Assistant Name Role Phone Migue Whiteside DO Primary Care Provider Reason for Visit * Reason Comments eRx-Medication Refill Encounter Details Date Type Department Care Team Description 03/14/2019 Refill Family Practice [facility] [address] [place] [address] Migue Whiteside DO [address] [facility] [place] [address] Anxiety state Allergies Active Allergy Reactions Severity Noted Date Comments Heparin 09/04/2009 Heparin Induced Thrombocytopenia Empagliflozin Other (Please comment) Medium 05/17/2018 3 yeast infections in 6 weeks after starting Morphine And Related 09/16/1997 Hallucinations Tetanus Toxoid Other (Please comment) 06/15/2011 Passed out documented as of this encounter (statuses as of 03/14/2019) Medications Medication Sig Dispensed Refills Start Date [...] Box Dosing Unit 3 08/30/20 18 Active Insulin Degludec (TRESIBA FLEXTOUCH) 200 UNIT/ML SOPN Inject up to 160 units subcutaneously once daily as directed 9 mL 5 11/22/19 19 Active DULoxetine (CYMBALTA) 60 MG CPEPIndications:Fi bromyalgia,Moderat [...] 5 01/13/20 19 Active Vitamin D, Ergocalciferol, 41076 units CapsuleIndications :Vitamin D deficiency Take one capsule by mouth once a week 13 Cap 0 01/14/20 19 Active Blood Glucose Monitoring Suppl (FlyCast ULTRA 2) w/Device KIT Use to test [...] daily 3 Vial 12 03/14/20 19 Active clonazePAM (KLONOPIN) 0.5 MG TabletIndications: Anxiety state TAKE ONE TABLET BY MOUTH TWICE DAILY 180 Tab 3 09/11/20 18 019 Discontinued documented as of this encounter (statuses as of 03/14/2019) Active Problems Problem Noted Date Other atherosclerosis of [place] arteries of extremities, left leg 02/26/2019 Impetigo [...] 10/14/2014 Overview: ICD-10 update of inactive term [place] filter in place 08/19/2014 History of pulmonary [...] as of this encounter (statuses as of 03/14/2019) Resolved Problems Problem Noted Date Resolved Date [...] as of this encounter (statuses as of 03/14/2019) Immunizations Name Administration Dates Next Due Pneumococcal [...] Telephone Encounter - Migue Whiteside DO - 03/14/2019 3:59 PM EDT Signed Prescriptions: Disp Refills clonazePAM (KLONOPIN) 0.5 MG Tablet 60 Tab 2 Sig: TAKE ONE TABLET BY MOUTH TWICE DAILY Authorizing Provider: MIGUE WHITESIDE * Telephone Encounter - Enrique Hardy, [facility] - 03/14/2019 3:42 PM EDT Pending Prescriptions: Disp Refills clonazePAM (KLONOPIN) 0.5 MG Tablet [Phar*60 Tab 2 Sig: TAKE ONE TABLET BY MOUTH TWICE DAILY * Telephone Encounter - Enrique Hardy RPh - 03/14/2019 3:42 PM EDT I have reviewed the patients controlled substance dispensing history in the Prescription Drug Monitoring Program in compliance with the [facility] regulations before prescribing a controlled substance. PDMP checked on 03/14/2019. Patient requesting: Clonazepam 0.5mg, filled 02/12/19, for #60 for a 30 day supply. Other recent controlled medication fills: tramadol 50mg, filled 12/18/18, for #30 for a 7 day supply. lorazepam 1mg, filled 09/27/18, for #1 for a 1 day supply. Last Office Visit: 03/07/2019 Next Office Visit: No Future Appointments Date medication is due for refill: 03/13/19 Toxicology results: Results for orders placed or [...] Results Review. Please approve if appropriate. Thanks, Lois SouzaD Clinical Pharmacist Telepharmacy 03/14/2019, 3:42 PM documented in this encounter Plan of Treatment Upcoming Encounters Date Type Specialty Care Team Description 03/20/2019 Pharmacy [facility]acy [facility] [address] [place] [address] 04/24/2019 Office Visit Sleep Disorders Celsa Tafoya CRNP [address] [address] [phone] 06/15/2019 Office Visit Cardiology Marjorie Powell PA-C [address] [place] [address] [phone] Health Maintenance Due Date Last Done Comments DIABETES-EYE EXAM 02/24/2011 02/24/2010 (Do ne elsewhere), 12/18/2009, 02/18/2008 (Done elsewhere) PAP SMEAR-EVERY 3 YRS,AGES 21-65 05/11/2016 05/11/2013, 03/01/2008, 10/19/2006, Additional history exists CKD PHOS USE SMARTSET 57220 12/29/2018 04/0 01/2018, 08/26/2009, 08/25/2009, Additional history exists DIABETES-HGBA1C EVERY 6 MONTHS 03/27/2019 09/27/2018, 05/01/2018, 12/29/2017, Additional history exists Yearly B-12 05/16/2019 05/16/2018 BREAST CANCER SCREENING DISCUSSION YEARLY AGES 40-75 06/23/2019 06/23/2018, 05/09/2015, 07/12/2014, Additional history exists CKD GFR USE SMARTSET 77846 08/28/201902/26, 01/12/2019, 12/23/2018, Additional history exists DIABETES-FOOT EXAM 01/02/2020 01/01/2019, 0 12/29/2017, 10/21/2016, Additional history exists CKD HGB USE SMARTSET 36451 02/27/202002/26, 12/23/2018, 12/08/2018, Additional history exists DIABETES-URINE MICROALBUMIN EVERY 12 MONTHS 02/27/2020 02/26/2019, 12/23/2018, 12/08/2018, Additional history exists PNEUMOCOCCAL 19-64 MEDIUM RISK [...] Documents on File Type Date Recorded Patient Development Advisor Expl anation Advanced Directive 08/22/2009 12:00 [...]
--- OUTSIDE RECORDS SUMMARY | 2023-06-01 05:48 | External Medical Summary | Summary of Care ---
Author Name Unknown Organization [place] [address] Care Team Providers Care Personal Financial Advisor Name Role Phone Kevin Whiteside Primary Care Provider Encounter Details Date Type Department Care Team Description 03/04/2019 Scan Encounter Unspecified Department <No scans attached> [...] 400 Box Dosing Unit 3 08/30/2018 Active clonazePAM (KLONOPIN) 0.5 MG TabletIndications:A nxiety state TAKE ONE TABLET BY MOUTH TWICE DAILY 180 Tab 3 09/11/2018 Active Insulin Degludec (TRESIBA FLEXTOUCH) 200 UNIT/ML SOPN Inject up to 160 units subcutaneously once daily as directed 9 mL 5 11/22/2018 Active DULoxetine (CYMBALTA) 60 MG CPEPIndications:Fib romyalgia,Moderate [...] Tab 5 01/12/2019 Active Vitamin D, Ergocalciferol, 71071 units CapsuleIndications: Vitamin D deficiency Take one [...] 200 Box Dosing Unit 11 02/26/2019 Active documented as of this encounter (statuses as of 03/14/2019) Active Problems Problem Noted Date Other atherosclerosis of [place] arteries of extremities, left leg 02/26/2019 Impetigo [...] Specialty Care Team Description 03/20/2019 Pharmacy Pharmacy [facility] [place] [address] [place] [address] 04/24/2019 Office Visit Sleep Disorders Celsa Tafoya CRNP [address] [address] [phone] 06/15/2019 Office Visit Cardiology Marjorie Powell PA-C [address] [address] [phone] Health Maintenance Due Date Last Done Comments DIABETES-EYE EXAM 02/24/2011 02/24/2010 (Do ne elsewhere), 12/18/2009, 02/18/2008 (Done elsewhere) PAP SMEAR-EVERY 3 YRS,AGES 21-65 05/11/2016 05/11/2013, 03/01/2008, 10/19/2006, Additional history exists CKD PHOS USE SMARTSET 79432 12/29/2018 04/0 01/2018, 08/26/2009, 08/25/2009, Additional history exists DIABETES-HGBA1C EVERY 6 MONTHS 03/27/2019 09/27/2018, 05/01/2018, 12/29/2017, Additional history exists Yearly B-12 05/16/2019 05/16/2018 BREAST CANCER SCREENING DISCUSSION YEARLY AGES 40-75 06/23/2019 06/23/2018, 05/09/2015, 07/12/2014, Additional history exists CKD GFR USE SMARTSET 37835 08/28/201902/26, 01/12/2019, 12/23/2018, Additional history exists DIABETES-FOOT EXAM 01/02/2020 01/01/2019, 0 12/29/2017, 10/21/2016, Additional history exists CKD HGB USE SMARTSET 58288 02/27/202002/26, 12/23/2018, 12/08/2018, Additional history exists DIABETES-URINE [...] Documents on File Type Date Recorded Patient Valve And Regulator Repairer Expl anation Advanced Directive 08/22/2009 12:00 [...]
--- OUTSIDE RECORDS SUMMARY | 2023-06-01 05:48 | External Medical Summary ---
Author Name Unknown Address [address] [place] [address] Phone Organization K01:[facility] [address] [id number] Laboratory Report Ordering Provider Test Date Status LONG CAMARENA 03/14/2019 13:54:00 Final Observation Date Value Abnormality Reference Status HbA1C 03/14/2019 21:56 9.4 Above high normal 4.0-5 .6 Final Performing Location [facility] [address] [facility] [address]
--- OUTSIDE RECORDS SUMMARY | 2023-06-01 05:48 | External Medical Summary ---
Author Name Unknown Address [address] [id number] Phone Organization K[facility] [address] [id number] Laboratory Report Ordering Provider Test Date Status LONG CAMARENA 03/14/2019 13:54:00 Final Observation Date Value Abnormality Reference Status Vitamin B12 03/14/2019 23:03 727 [id number] F inal Performing Location [facility] [address] [facility] [address]
--- OUTSIDE RECORDS SUMMARY | 2023-06-01 05:48 | External Medical Summary | Summary of Care ---
Author Name Unknown Organization [place] [address] Care Team Providers Care Occupational Rehabilitation Aide Name Role Phone Migue Whiteside Primary Care Provider Reason for Visit * Reason Comments Follow Up * Evaluate & Treat - Unlimited Visits (Within 10 days (routine)) Status Reason Specialty Diagnoses / Procedures Referred By Contact Referred To Contact Authorized Specialty Services Required Cardiovascular Medicine Diagnoses Acute diastolic congestive heart failure (HCC) Sanjiv Tolliver DO [address] [facility] [address] Encounter Details Date Type Department Care Team Description 03/14/2019 Office Visit Cardiology, [facility] [address] [facility] [place] [address] Rey Woodall MD [address] [place] [address] Orthostasis*; Chronic diastolic congestive heart failure (HCC); ELISSA [...] Box Dosing Unit 3 08/30/20 18 Active clonazePAM (KLONOPIN) 0.5 MG TabletIndications: Anxiety state TAKE ONE TABLET BY MOUTH TWICE DAILY 180 Tab 3 09/11/20 18 Active Insulin Degludec (TRESIBA FLEXTOUCH) 200 [...] 5 01/13/20 19 Active Vitamin D, Ergocalciferol, 65144 units CapsuleIndications :Vitamin D deficiency Take one capsule by mouth once a week 13 Cap 0 01/14/20 19 Active Blood Glucose Monitoring Suppl (letsmote.com ULTRA 2) w/Device KIT Use to test [...] mouth at bedtime. 90 Tab 3 03/07/20 Active traMADol (ULTRAM) 50 MG Tablet Take 1 Tab by mouth every 6 hours as needed for Pain. 30 Tab 0 12/19/19 19 019 Discontinued lisinopril (PRINIVIL) 2.5 MG TabletIndications: HTN, goal below 140/80,Acute diastolic congestive heart failure (HCC),Body mass index (BMI) of 50.0 to 59.9 in adult (HCC),Hypoxemia,OS A (obstructive sleep apnea),HTN, goal below 130/80 TAKE ONE TABLET BY MOUTH DAILY 90 Tab 4 03/05/20 19 019 Discontinued documented as of this [...] 76%, time <89% 6:21 hours, TINY [address] [facility] Postsurgical hypothyroidism 06/16/2011 ELLIE (generalized anxiety disorder) [...] Sign Reading Time Taken Comments Blood Pressure 102/60 03/14/2019 1:22 PM EDT Pulse 96 03/14/2019 1:22 PM EDT Temperature - - Respiratory Rate 20 03/14/2019 1:22 PM EDT Oxygen Saturation - - Inhaled Oxygen Concentration - - Weight 152 kg (335 lb) 03/14/2019 1:22 PM EDT Height - - Body Mass Index 55.75 01/23/2019 3:50 PM EDT documented in this encounter Progress Notes * Rey Woodall MD - 03/14/2019 1:15 PM EDT 03/14/2019 Cardiology Follow Up Referring Provider: PCP: MIGUE WHITESIDE [address] [place] [address] [phone] Chief Complaint: Orthostasis SUBJECTIVE: Stephanie Camp is a 63 year old year old female ongoing issue 1.Morbid obesity. 2.Obstructive sleep apnea on CPAP supplementation with nocturnal hypoxia on oxygen administration. 3.Hypertension. 4.Type 2 diabetes mellitus. 5.Chronic fibromyalgia. 6.History of bilateral pneumonia with extensive hospitalization in 2008 requiring extended intubation, [place] filter implantation with pulmonary embolus. 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 8. Chronic diastolic heart failure multiple factorial etiology 9. Chronic renal insufficiency Patient presents now in routine followup. Has been hospitalized recently following on orthostatic fall. Diuretics adjusted slightly downward. Continues to have low blood pressures at home. And dizziness on sudden standing. No tachy palpitations syncope or near or near-syncope weight is down approximately 9 lb. No fevers chills unexplained infections. Patient has been using CPAP faithfully and recently started on O2 supplementation during the day A Complete Review of 10 Systems is as stated above or negative. 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 Nocturnal hypoxemia G47.34 ELISSA (obstructive sleep apnea) G47.33 Venous insufficiency I87.2 HTN, goal below 130/80 I10 History of pulmonary embolus (PE) Z86.711 Statin intolerance Z78.[address] Z95.828 Type 2 diabetes mellitus with hemoglobin A1c goal of 7.0%-8.0% ([facility]) E11.9 Fibromyalgia M79.7 Abnormality of gait R26.9 Restless legs syndrome G25.81 Gastroesophageal reflux disease with esophagitis K21.0 Uncontrolled type 2 diabetes mellitus with stage 3 chronic kidney disease, with long-term current use of insulin ([facility]) E11.22, E11.65, N18.3, Z79.4 Body mass index (BMI) of 50.0 to 59.9 in adult ([facility]) Z68.43 Controlled substance agreement signed Z79.899 Chronic diastolic congestive heart failure ([facility]) I50.32 Thoracic back pain M54.6 Mild episode of recurrent major depressive disorder ([facility]) F33.0 Impetigo L01.00 Lumbar radiculopathy M54.16 Other atherosclerosis of [place] arteries of extremities, left leg ([facility]) I70.292 Review of patient's allergies indicates: Allergen Reactions Jardiance [Empagliflozin] Other (Please comment) 3 yeast infections in 6 weeks after starting Heparin Heparin Induced Thrombocytopenia Morphine And Related Hallucinations Tetanus Toxoid Other (Please comment) Passed out Current Outpatient Medications Medication Sig Dispense Refill furosemide (LASIX) 40 MG Tablet Take 1.5 Tabs by mouth 2 times a day. 270 Tab 3 rOPINIRole (REQUIP) 2 MG Tablet Take 1 Tab by mouth at bedtime. 90 Tab 3 lisinopril (PRINIVIL) 2.5 MG Tablet TAKE ONE TABLET BY MOUTH DAILY 90 Tab 4 Insulin Pen Needle (BD PEN NEEDLE SHORT [...] day. 30 mL 4 Vitamin D, Ergocalciferol, 61926 units Capsule Take one capsule by mouth [...] cut, crush or chew 90 Cap 5 traMADol (ULTRAM) 50 MG Tablet Take 1 Tab by mouth every 6 hours as needed for Pain. 30 Tab 0 Insulin Degludec (TRESIBA FLEXTOUCH) 200 UNIT/ML SOPN Inject up to 160 units subcutaneously once daily as directed 9 mL 5 clonazePAM (KLONOPIN) 0.5 MG Tablet TAKE ONE TABLET BY MOUTH TWICE DAILY 180 Tab 3 ACCU-CHEK SOFTCLIX LANCETS MISC Test sugar 3-4 [...] PO CPDR one tablet daily OBJECTIVE/PHYSICAL EXAMINATION: [facility] 03/11/2003 General: no acute distress and stated [...] intact 2+/4 Neuro: grossly normal exam Data: Lipid Panel Results: LIPID PANEL WITH DIRECT LDL IF TG ABOVE 400 MG/DL Nessa Dt/Tm Resulted Value Status HOURS FASTING (hours) 08/01/18 8:29A 08/01/18 >8 HOURS F TRIGLYCERIDES (mg/dL) 08/01/18 8:29A 08/01/18 283* F CHOLESTEROL (mg/dL) 08/01/18 8:29A 08/01/18 206* F HDL (mg/dL) 08/01/18 8:29A 08/01/18 38* F CHOL/HDL RATIO ( ) 08/01/18 8:29A 08/01/18 5.4 F LDL (CALCULATED) (mg/dL) 08/01/18 8:29A 08/01/18 111 F LDL DIRECT(REFLEX) (mg/dL) 08/01/18 8:29A 08/01/18 F Value: NOT APPLICABLE ASSESSMENT: 63 year old year old female With morbid obesity Pickwickian syndrome chronic diastolic heart failure with recent difficulties with orthostasis. Patient is fluid dependent but requires diuretics to manage chronic right edema anddiastolic heart failure. PLAN: Will discontinue lisinopril being used for renal protective affect in diabetes. No systolic heart failure hypertension current Work as scheduled for today including followup renal function Patient to continue follow blood pressures at home report hypotension DISPOSITION: Return 3 months time Rey Woodall MD [facility] Cardiology, [address] [place] [address] documented in this encounter Nursing Notes * Chrystal Deng LPN - 03/14/2019 1:21 PM EDT Examination Room: 17 Name: Stephanie Camp Date of : (1955). Reason for Visit: follow up Interim Hospitalization(s): February 2018 s/p fall, transported by ambulance Problems/Concerns: lightheaded/dizzy upon standing. Chest Pain/SOB: denies worsening MyGeisigner sign up: NO documented in this encounter Plan of Treatment Upcoming Encounters Date Type Specialty Care Team Description 03/20/2019 Pharmacy Pharmacy [facility] [place] [address] [address] 04/24/2019 Office Visit Sleep Disorders Celsa Tafoya CRNP [address] [address] [phone] 06/15/2019 Office Visit Cardiology Marjorie Powell PA-C [address] [place] [address] [phone] Health Maintenance Due Date Last Done Comments DIABETES-EYE EXAM 02/24/2011 02/24/2010 (Do ne elsewhere), 12/18/2009, 02/18/2008 (Done elsewhere) PAP SMEAR-EVERY 3 YRS,AGES 21-65 05/11/2016 05/11/2013, 03/01/2008, 10/19/2006, Additional history exists CKD PHOS USE SMARTSET 98453 12/29/2018 0401/2018, 08/26/2009, 08/25/2009, Additional history exists DIABETES-HGBA1C EVERY 6 MONTHS 03/27/2019 09/27/2018, 05/01/2018, 12/29/2017, Additional history exists Yearly B-12 05/16/2019 05/16/2018 BREAST CANCER SCREENING DISCUSSION YEARLY AGES 40-75 06/23/2019 06/23/2018, 05/09/2015, 07/12/2014, Additional history exists CKD GFR USE SMARTSET 18990 08/28/201902/26, 01/12/2019, 12/23/2018, Additional history exists DIABETES-FOOT EXAM 01/02/2020 01/01/2019, 0 12/29/2017, 10/21/2016, Additional history exists CKD HGB USE SMARTSET 54524 02/27/202002/26, 12/23/2018, 12/08/2018, Additional history exists DIABETES-URINE [...] as of this encounter Visit Diagnoses Diagnosis Orthostasis- Primary Orthostatic hypotension Chronic diastolic congestive heart failure (HCC) Chronic diastolic heart failure ELISSA (obstructive sleep apnea) Obstructive sleep apnea (adult) (pediatric) documented in this encounter Advance Directives Documents on File Type Date Recorded Patient Hvac Service Manager Expl anation Advanced Directive 08/22/2009 [...]
--- OUTSIDE RECORDS SUMMARY | 2023-06-01 05:48 | External Medical Summary | Summary of Care ---
Author Name Unknown Organization [place] [address] Care Team Providers Care Durable Medical Equipment Technician Name Role Phone Kevin Whiteside Primary Care Provider Encounter Details Date Type Department Care Team Description 03/21/2019 Temporary Help Agency Referral ClerkManager Discovery Medicine [address] [address] Frances Nicholson RN [address] [place] [address] HF (heart failure) ([facility])* Allergies Active Allergy Reactions Severity Noted Date Comments Heparin 09/04/2009 Heparin Induced Thrombocytopenia Empagliflozin Other (Please comment) Medium 05/17/2018 3 yeast infections in 6 weeks after starting Morphine And Related 09/16/1997 Hallucinations Tetanus Toxoid Other (Please comment) 06/15/2011 Passed out documented as of this encounter (statuses as of 03/21/2019) Medications Medication Sig Dispensed Refills Start Date [...] 400 Box Dosing Unit 3 08/30/2018 Active Insulin Degludec (TRESIBA FLEXTOUCH) 200 UNIT/ML [...] Tab 5 01/12/2019 Active Vitamin D, Ergocalciferol, 85175 units CapsuleIndications: Vitamin D deficiency Take one [...] as of this encounter (statuses as of 03/21/2019) Active Problems Problem Noted Date Other atherosclerosis of [place] arteries of extremities, left leg 02/26/2019 Impetigo [...] as of this encounter (statuses as of 03/21/2019) Resolved Problems Problem Noted Date Resolved Date [...] as of this encounter (statuses as of 03/21/2019) Immunizations Name Administration Dates Next Due Pneumococcal [...] Progress Notes * Frances Nicholson RN - 03/21/2019 10:07 AM EDT PMH: DM, HTN, SOA with CPAP, history of PE, frank filter in place, dyslipidemia-statin intol, GERD, Fibromyalgia, depression/anxiety New-acute diastolic HF and ELSIE sent from PCP office abnormal labs and shortness of breath. x-ray concerning for atypical pneumonia 06/06/18-[facility] admit Acute respiratory failure with hypoxia and [...] 343 on d/c 06/10/18 d/c from [facility] new on Lasix, potassium and Mg Stopped Metformin and HCTZ 12/08 [facility] admit acute decompensated diastolic HF Consulted Cardiology and nephrology 12/14/18 D/c to home Added Spirolactone Increased Lasix to 80 mg BID (4-6 hours apart) Weekly BMP x 4 weights and home BP cuff D/c weight 351.2 12/18-Dr Whiteside 01/12-cards 01/24-neph 12/23 [facility] admit with Nausea, abd pain, intermittent fever (afebrile in EE), headaches, diffuse body aches. Creat elevated 2.52 on admit UTI- for klebselli 12/27-d/c to home 10 days of Omnicef for UTI 2nd set of blood cultures neg d/c weight 157.8 Kg (D/C weight last admit was 159.3) 01/01-Dr Whiteside 01/11-sleep med-but had to alcel sleep study due to hosp 01/12-cards 02/28-[facility] admit for fall-slipped, couldn't get up Fall: Fell after legs slid on the floor Possible related to orthostatic vs mechanical fall Xray hip showed no fracture or dislocation within the pelvis or hips. Xray of knees showed No fractures within the right or left knee. -[id number] 03/04 D/C form [facility] Requip 2 mg HS Lasix decreased to 60 mg, but if weight increases by more than 2 lbs, needs to take extra 20 mg of Lasix Needs BMP in 1 week O2 at HS and with ambulation 03/05-Dr Whiteside ROSA Wk 2 Reports that she is currently un packing. Says that she had her big move on Tuesday. Reports that her weight today was 331 Reports that BS have been good-once in a while she gets a high one [facility] scale continues to not transmit. Advised pt to plug modem in-as pt has not done this at her new apartment and to try stepping on thescale to see if it will transmit. Pt thought that she needed to have internet-advised pt that she did not need internet. Pt aslo asking that LES not make home visit tomorrow as she has to clean her old apartment this week and is too busy to meet with LES-says that next week will be ok for LES to make a home visit if scale still not working Denies chest pain Denies increased SOB No cough Using O2 with activity and with C-PAP HS Denies increased lower leg edema Denies N/V or decreased intake Denies unmanaged pain-has neuropathy which is chronic Denies diff with bowels or bladder stressed the importance of daily weights and to report weigh gain of 3 lbs or more in 24 hour or 5 lbs or more in a week, increased SOB, swelling, weakness, dizziness, BS >250 for longer than 24 hour or any other concerns Encouraged to avoid salt/salty foods Stressed safety/fall precautions Call again this week Frances Nicholson RN, [facility] Temporary Help Agency Referral Clerk [phone] documented in this encounter Plan of Treatment Upcoming Encounters Date Type Specialty Care Team Description 03/27/2019 Pharmacy Pharmacy [facility] [place] [address] [place] [address] 04/24/2019 Office Visit Sleep Disorders Celsa Tafoya CRNP [address] [place] [address] [phone] 06/15/2019 Office Visit Cardiology Marjorie Powell PA-C [address] [place] [address] [phone] Health Maintenance Due Date Last Done Comments DIABETES-EYE EXAM 02/24/2011 02/24/2010 (Do ne elsewhere), 12/18/2009, 02/18/2008 (Done elsewhere) PAP SMEAR-EVERY 3 YRS,AGES 21-65 05/11/2016 05/11/2013, 03/01/2008, 10/19/2006, Additional history exists CKD PHOS USE SMARTSET 53992 12/29/2018 04/0 01/2018, 08/26/2009, 08/25/2009, Additional history exists BREAST CANCER SCREENING DISCUSSION YEARLY AGES 40-75 06/23/2019 06/23/2018, 05/09/2015, 07/12/2014, Additional history exists CKD GFR USE SMARTSET 83620 09/13/201903/14, 02/26/2019, 01/12/2019, Additional history exists DIABETES-HGBA1C EVERY 6 MONTHS 09/13/2019 03/14/2019, 09/27/2018, 05/01/2018, Additional history exists DIABETES-FOOT EXAM 01/02/2020 01/01/2019, 0 12/29/2017, 10/21/2016, Additional history exists CKD HGB USE SMARTSET 57298 02/27/202002/26, 12/23/2018, 12/08/2018, Additional history exists DIABETES-URINE [...] (heart failure) (HCC)- Primary Heart failure, unspecified documented in this encounter Advance Directives Documents on File Type Date Recorded Patient Public Health Technologist Expl anation Advanced Directive 08/22/2009 12:00 [...]
--- OUTSIDE RECORDS SUMMARY | 2023-06-01 05:48 | External Medical Summary ---
Author Name Unknown Address [address] [facility] [place] [address] Phone Organization K01:[facility] [address] [id number] Laboratory Report Ordering Provider Test Date Status LONG CAMARENA 03/14/2019 13:54:00 Final Observation Date Value Abnormality Reference Status TSH 03/14/2019 23:03 0.88 0.27-4.2 Fin al T4, Free 03/14/2019 23:03 NOT APPLICABLE 0.9-1.7 Final Performing Location [facility] [address] [facility] [address]
--- OUTSIDE RECORDS SUMMARY | 2023-06-01 05:48 | External Medical Summary | Summary of Care ---
Author Name Unknown Organization [place] [address] Care Team Providers Care Compliance Nurse Name Role Phone Kevin Whiteside Primary Care Provider Reason for Visit * Reason Comments case management Encounter Details Date Type Department Care Team Description 03/13/2019 Telephone Internal Medicine [address] [address] Frances Nicholson RN [address] [place] [address] case management Allergies Active Allergy Reactions Severity Noted Date Comments Heparin 09/04/2009 Heparin Induced Thrombocytopenia Empagliflozin Other (Please comment) Medium 05/17/2018 3 yeast infections in 6 weeks after starting Morphine And Related 09/16/1997 Hallucinations Tetanus Toxoid Other (Please comment) 06/15/2011 Passed out documented as of this encounter (statuses as of 03/13/2019) Medications Medication Sig Dispensed Refills Start Date [...] or chew 90 Cap 5 12/18/2018 Active traMADol (ULTRAM) 50 MG Tablet Take 1 Tab by mouth every 6 hours as needed for Pain. 30 Tab 0 12/18/2018 Active gabapentin (NEURONTIN) 300 MG CapsuleIndications: Type 2 diabetes mellitus with hemoglobin A1c goal of 7.0%-8.0% ([facility]) Take 1 Cap by mouth 3 times a day. 270 Cap 5 01/01/2019 Active spironolactone (ALDACTONE) 25 MG Tablet Take 0.5 Tabs by mouth daily. 45 Tab 5 01/12/2019 Active Vitamin D, Ergocalciferol, 01688 units CapsuleIndications: Vitamin D deficiency Take one capsule by mouth once a week 13 Cap 0 01/13/2019 Active Blood Glucose Monitoring Suppl (ONL TherapeuticsUCH ULTRA 2) w/Device KIT Use to [...] 200 Box Dosing Unit 11 02/26/2019 Active lisinopril (PRINIVIL) 2.5 MG TabletIndications:H TN, goal below 140/80,Acute diastolic congestive heart failure (HCC),Body mass index (BMI) of 50.0 to 59.9 in adult (HCC),Hypoxemia,ELISSA (obstructive sleep apnea),HTN, goal below 130/80 TAKE ONE TABLET BY MOUTH DAILY 90 Tab 4 03/05/2019 Active furosemide (LASIX) 40 MG TabletIndications:C hronic diastolic congestive heart failure (HCC) Take 1.5 Tabs by mouth 2 times a day. 270 Tab 3 03/07/2019 Active rOPINIRole (REQUIP) 2 MG TabletIndications:R estless legs syndrome Take 1 Tab by mouth at bedtime. 90 Tab 3 03/07/2019 Active documented as of this encounter (statuses as of 03/13/2019) Active Problems Problem Noted Date Other atherosclerosis of [place] arteries of extremities, left leg 02/26/2019 Impetigo [...] as of this encounter (statuses as of 03/13/2019) Resolved Problems Problem Noted Date Resolved Date [...] as of this encounter (statuses as of 03/13/2019) Immunizations Name Administration Dates Next Due Pneumococcal [...] Telephone Encounter - Frances Nicholson RN - 03/13/2019 10:56 AM EDT PMH: DM, HTN, SOA with CPAP, history of PE, frank filter in place, dyslipidemia-statin intol, GERD, Fibromyalgia, depression/anxiety New-acute diastolic HF and ELSIE sent from PCP office abnormal labs and shortness of breath. x-ray concerning for atypical pneumonia 06/06/18-[facility] admit Acute respiratory failure with hypoxia and [...] 343 on d/c 06/10/18 d/c from [facility] new on Lasix, potassium and Mg Stopped Metformin and HCTZ 12/08 [facility] admit acute decompensated diastolic HF Consulted Cardiology and nephrology 12/14/18 D/c to home Added Spirolactone Increased Lasix to 80 mg BID (4-6 hours apart) Weekly BMP x 4 weights and home BP cuff D/c weight 351.2 12/18-Dr Whiteside 01/12-cards 01/24-neph 12/23 [facility] admit with Nausea, abd pain, intermittent fever (afebrile in EE), headaches, diffuse body aches. Creat elevated 2.52 on admit UTI- for klebselli 12/27-d/c to home 10 days of Omnicef for UTI 2nd set of blood cultures neg d/c weight 157.8 Kg (D/C weight last admit was 159.3) 01/01-Dr Whiteside 01/11-sleep med-but had to alcel sleep study due to hosp 01/12-cards 02/28-[facility] admit for fall-slipped, couldn't get up Fall: Fell after legs slid on the floor Possible related to orthostatic vs mechanical fall Xray hip showed no fracture or dislocation within the pelvis or hips. Xray of knees showed No fractures within the right or left knee. -[id number] 03/04 D/C form [facility] Requip 2 mg HS Lasix decreased to 60 mg, but if weight increases by more than 2 lbs, needs to take extra 20 mg of Lasix Needs BMP in 1 week O2 at HS and with ambulation 03/05-Dr Whiteside ROSA Wk 1 Reports that she is currently un packing. Says that she had her big move on Tuesday. Reports that her weight has been staying around the same 335-336 [facility] scale continues to not transmit. [facility] has plan to visit pt at her new apartment next week to assess what is happening with the scale. Reports that her BS were god up until today-she over ate some thins she should not have eaten. Denies chest pain Denies increased SOB No [...] than 24 hour or any other concerns Made aware that she can continue to monitor her BP [facility] also Made aware that LES will be contacting to assist/ensure that scale and BP cuff transmitting Encouraged to avoid salt/salty foods Stressed safety/fall precautions Call again this week Frances Nicholson RN, [facility] Refrigeration Lead [phone] documented in this encounter Plan of Treatment Upcoming Encounters Date Type Specialty Care Team Description 03/14/2019 Pharmacy Pharmacy [facility] [address] [place] [address] 03/14/2019 Office Visit Cardiology Rey Woodall MD [address] [place] [address] [phone] 03/20/2019 [facility] [address] [place] [address] 04/24/2019 Office Visit Sleep Disorders Celsa Tafoya CRNP [address] [place] [address] [phone] Health Maintenance Due Date Last Done Comments DIABETES-EYE EXAM 02/24/2011 02/24/2010 (Do ne elsewhere), 12/18/2009, 02/18/2008 (Done elsewhere) PAP SMEAR-EVERY 3 YRS,AGES 21-65 05/11/2016 05/11/2013, 03/01/2008, 10/19/2006, Additional history exists CKD PHOS USE SMARTSET 17630 12/29/2018 04/0 01/2018, 08/26/2009, 08/25/2009, Additional history exists DIABETES-HGBA1C EVERY 6 MONTHS 03/27/2019 09/27/2018, 05/01/2018, 12/29/2017, Additional history exists Yearly B-12 05/16/2019 05/16/2018 BREAST CANCER SCREENING DISCUSSION YEARLY AGES 40-75 06/23/2019 06/23/2018, 05/09/2015, 07/12/2014, Additional history exists CKD GFR USE SMARTSET 13941 08/28/201902/26, 01/12/2019, 12/23/2018, Additional history exists DIABETES-FOOT EXAM 01/02/2020 01/01/2019, 0 12/29/2017, 10/21/2016, Additional history exists CKD HGB USE SMARTSET 78858 02/27/202002/26, 12/23/2018, 12/08/2018, Additional history exists PNEUMOCOCCAL 19-64 [...] Documents on File Type Date Recorded Patient Training Program Developer Expl anation Advanced Directive 08/22/2009 12:00 [...]
--- OUTSIDE RECORDS SUMMARY | 2023-06-01 05:48 | External Medical Summary | Summary of Care ---
Author Name Unknown Organization [place] [address] Care Team Providers Care Bridge Opener Name Role Phone Kevin Whiteside Primary Care Provider Reason for Visit * Reason Comments Dosage Adjustment Via Phone (anticoag Cl inic) Diabetes Follow-Up Encounter Details Date Type Department Care Team Description 03/20/2019 Pharmacy Pharmacy, [facility] [address] [facility] [place] [address] [facility] [address] [facility] [place] [address] Uncontrolled type 2 diabetes mellitus with stage 3 chronic kidney disease, with long-term current use of insulin ([facility])*; Type 2 diabetes mellitus with hemoglobin A1c goal of 7.0%-8.0% ([facility]) Allergies Active Allergy Reactions Severity Noted Date Comments Heparin 09/04/2009 Heparin Induced Thrombocytopenia Empagliflozin Other (Please comment) Medium 05/17/2018 3 yeast infections in 6 weeks after starting Morphine And Related 09/16/1997 Hallucinations Tetanus Toxoid Other (Please comment) 06/15/2011 Passed out documented as of this encounter (statuses as of 03/20/2019) Medications Medication Sig Dispensed Refills Start Date [...] MG/3ML SOPNIndications:DM type 2, goal: symptom mgmt ([facility]) Inject 1.8 mg under the skin [...] Tab 5 01/12/2019 Active Vitamin D, Ergocalciferol, 84819 units CapsuleIndications: Vitamin D deficiency Take one capsule by mouth once a week 13 Cap 0 01/13/2019 Active Blood Glucose Monitoring Suppl ([employer] ULTRA 2) w/Device KIT Use to test [...] as of this encounter (statuses as of 03/20/2019) Active Problems Problem Noted Date Other atherosclerosis of [place] arteries of extremities, left leg 02/26/2019 Impetigo [...] 10/14/2014 Overview: ICD-10 update of inactive term [place] filter in place 08/19/2014 History of pulmonary [...] as of this encounter (statuses as of 03/20/2019) Resolved Problems Problem Noted Date Resolved Date [...] as of this encounter (statuses as of 03/20/2019) Immunizations Name Administration Dates Next Due Pneumococcal [...] Progress Notes * Rose Barton RPh - 03/20/2019 8:21 AM EDT Sent message to [employer] to check on status of pump shipping. Follow up in 1 week for status. Rose Barton, Pharm D Clinical Pharmacist 03/20/2019, 8:21 AM documented in this encounter Plan of Treatment Upcoming Encounters Date Type Specialty Care Team Description 03/27/2019 Pharmacy Pharmacy [facility] [place] [address] [address] 04/24/2019 Office Visit Sleep Disorders Celsa Tafoya CRNP [address] [address] [phone] 06/15/2019 Office Visit Cardiology Marjorie Powell PA-C [address] [address] [phone] Health Maintenance Due Date Last Done Comments DIABETES-EYE EXAM 02/24/2011 02/24/2010 (Do ne elsewhere), 12/18/2009, 02/18/2008 (Done elsewhere) PAP SMEAR-EVERY 3 YRS,AGES 21-65 05/11/2016 05/11/2013, 03/01/2008, 10/19/2006, Additional history exists CKD PHOS USE SMARTSET 45057 12/29/2018 04/0 01/2018, 08/26/2009, 08/25/2009, Additional history exists BREAST CANCER SCREENING DISCUSSION YEARLY AGES 40-75 06/23/2019 06/23/2018, 05/09/2015, 07/12/2014, Additional history exists CKD GFR USE SMARTSET 13442 09/13/201903/14, 02/26/2019, 01/12/2019, Additional history exists DIABETES-HGBA1C EVERY 6 MONTHS 09/13/2019 03/14/2019, 09/27/2018, 05/01/2018, Additional history exists DIABETES-FOOT EXAM 01/02/2020 01/01/2019, 0 12/29/2017, 10/21/2016, Additional history exists CKD HGB USE SMARTSET 33178 02/27/202002/26, 12/23/2018, 12/08/2018, Additional history exists DIABETES-URINE [...] Documents on File Type Date Recorded Patient Oral Surgeon Expl anation Advanced Directive 08/22/2009 12:00 AM [...] patient have Health Care Power of Attor sahkir? No
--- OUTSIDE RECORDS SUMMARY | 2023-06-01 05:48 | External Medical Summary | Summary of Care ---
Author Name Unknown Organization [facility] [address] Care Team Providers Care Taping Foreman Name Role Phone Kevin Whiteside Primary Care Provider Reason for Visit * Reason Comments Dosage Adjustment In Person (Anticoag Cl inic) Diabetes Follow-Up Encounter Details Date Type Department Care Team Description 03/14/2019 Pharmacy Pharmacy, [facility] [address] [facility] [place] [address] [facility] [address] [facility] [place] [address] Uncontrolled type 2 diabetes mellitus with stage 3 chronic kidney disease, with long-term current use of insulin ([facility])*; Type 2 diabetes mellitus with hemoglobin A1c goal of 7.0%-8.0% ([facility]) Allergies Active Allergy Reactions Severity [...] MG/3ML SOPNIndications:DM type 2, goal: symptom mgmt ([facility]) Inject 1.8 mg under the [...] 5 01/13/20 19 Active Vitamin D, Ergocalciferol, 52649 units CapsuleIndications :Vitamin D deficiency Take one capsule by mouth once a week 13 Cap 0 01/14/20 19 Active Blood Glucose Monitoring Suppl ([facility] ULTRA 2) w/Device KIT Use to [...] bedtime. 90 Tab 3 03/07/20 19 Active insulin aspart (NOVOLOG) 100 UNIT/ML injection Use in insulin pump up to 200 units daily 3 Vial 12 03/14/20 19 Active traMADol (ULTRAM) 50 MG Tablet Take [...] Problem Noted Date Other atherosclerosis of [place] arteries of extremities, left leg 02/26/2019 Impetigo [...] this encounter Progress Notes * Rose Barton, [facility] - 03/14/2019 12:47 PM EDT nvoloMedication Therapy Disease Management Diabetes Interval History: Stephanie Camp is an 63 year old year old female returning to the [facility] for a diabetes follow-up appointment. Blood glucose control since last visit: improved Medication intolerance: no Medication compliance: yes Hospitalization or ED Utilization since last visit: no Hypoglycemia requiring assistance since last visit: no Symptoms of hyperglycemia or hypoglycemia present today: no Diet: unchanged Exercise: none Current Diabetes Medications: Tresiba 160 units daily Victoza 1.8 mg daily Increase Novolog 25 units with breakfast, 18 units lunch, 28 units at dinner + CF 1:10 over 120 at meals and bedtime Self-Monitoring Blood Glucose Review: Patient currently tests blood glucose 4 time(s) daily Pre am Post am Pre Lunch Post Lunch Pre pm Post pm HS 308 301 175 268 253 149 170 128 148 129 100 331 129 180 159 216 142 194 118 124 156 127 118 126 89 105 Average 213 #DIV/0! 140 #DIV/0! 127 #DIV/0! 224 Hi 331 0 216 0 149 0 268 Lo 126 0 89 [address] 208[address]75 0 135.4 0 127.4 0 #DIV/0! Range 205 0 127 0 49 0 88 Hypoglycemia: 1. Do you know what the symptoms of hypoglycemia are? Yes 2. How often can you tell by your symptoms if your blood sugar is low? Always 3. In a typical week, how many times will your blood sugar go below 70 mg/dL? Never Active Problem List Orthopedics Primary localized osteoarthrosis, lower leg Fibromyalgia Thoracic back pain Lumbar radiculopathy Cardiac Dyslipidemia Chronic diastolic congestive heart failure ([facility]) Mental Health ELLIE (generalized anxiety disorder) Mild episode of recurrent major depressive disorder ([facility]) Endocrine Postsurgical hypothyroidism Type 2 diabetes mellitus with hemoglobin A1c goal of 7.0%-8.0% ([facility]) Uncontrolled type 2 diabetes mellitus with stage 3 chronic kidney disease, with long-term current use of insulin ([facility]) Pulmonary Nocturnal hypoxemia ELISSA (obstructive sleep apnea) History of pulmonary embolus ([facility]) Vascular Venous insufficiency Frank filter in place Nephrology HTN, goal below 130/80 General Statin intolerance Abnormality of gait Controlled substance agreement signed Neurology Restless legs syndrome Gastrointestinal Gastroesophageal reflux disease with esophagitis Body mass index (BMI) of 50.0 to 59.9 in adult ([facility]) Dermatology Impetigo OTHER Other atherosclerosis of [place] arteries of extremities, left leg ([facility]) Review of patient's allergies indicates: Allergen Reactions [...] day. 30 mL 4 Vitamin D, Ergocalciferol, 95174 units Capsule Take one capsule by mouth [...] daily Objective: The ASCVD Risk score (Freddy ANDREAS Jr., et al., 2013) failed to calculate for the following reasons: The patient has a prior [place] or stroke diagnosis Estimated body mass index is 57.24 kg/m as calculated from the following: Height as of 01/23/19: 1.651 m (5' 5"). Weight as of 03/07/19: 156 kg (344 lb). BP Readings from Last 3 Encounters: 03/07/19 96/64 02/26/19 146/68 02/13/19 126/60 No POC components found HEMOGLOBIN, A1C(%) Nessa Dt/Tm Resulted Value Status 09/27/18 1:48P 09/27/18 9.5* FINAL 05/01/18 9:12A 05/01/18 10.0* FINAL 12/29/17 12:43P 12/29/17 11.6* FINAL MICROALBUMIN RATIO(mg/g creat) Nessa Dt/Tm Resulted Value Status 05/01/18 9:13A 05/01/18 <18 FINAL 03/03/17 12:37P 03/03/17 <15 FINAL 06/24/16 3:28P 06/24/16 <12 FINAL BASIC METAB PANEL, BMP Nessa Dt/Tm Resulted Value Status BUN (mg/dL) 01/12/19 4:01P 01/12/19 54* F CREATININE (mg/dL) 01/12/19 4:01P 01/12/19 1.6* F E GLOM FILT RATE ( ) 01/12/19 4:01P 01/12/19 34.2* F SODIUM (mmol/L) 01/12/19 4:01P 01/12/19 132* F POTASSIUM (mmol/L) 01/12/19 4:01P 01/12/19 5.1 F CHLORIDE (mmol/L) 01/12/19 4:01P 01/12/19 94* F CO2 (mmol/L) 01/12/19 4:01P 01/12/19 20* F ANION GAP (mmol/L) 01/12/19 4:01P 01/12/19 18* F GLUCOSE (mg/dL) 01/12/19 4:01P 01/12/19 281* F CALCIUM (mg/dL) 01/12/19 4:01P 01/12/19 9.3 F ALT(U/L) Nessa Dt/Tm Resulted Value Status 10/26/18 9:39A 10/26/18 23 FINAL LDL (CALCULATED)(mg/dL) Nessa Dt/Tm Resulted Value Status 08/01/18 8:29A 08/01/18 111 FINAL Assessment & Plan:Glycemic control is stable but not at goal. Patient agreeable to continue medications as noted below. Patient's BG values are improved since last appointment and changes. Patient has dropped BG values about 100 points since last visit. Recommending to continue current regimen at this time and patientis agreeable to this plan. Hopefully, will have insulin pump in a few weeks and then will transition to insulin pump Patient is agreeable to SMBG 4 time(s) daily. Patient aware to contact clinic if any hypoglycemia before next visit. Reviewed rule of 15s. Diabetes Medications: Tresiba 160 units daily Victoza 1.8 mg daily Novolog 25 units with breakfast, 18 units lunch, 28 units at dinner + CF 1:10 over 120 at meals andbedtime Diabetes Health Maintenance: due for eye exam Return to clinic: 2 week(s) Next Office Visit: 03/20/2019 Scheduled Provider(s): [facility] Jeramie Barton [facility] Clinical Pharmacist Medication Therapy Disease Management 03/14/2019, 12:47 PM documented in this encounter Plan of Treatment Upcoming Encounters Date Type Specialty Care Team Description 03/20/2019 Pharmacy Pharmacy [facility] Moe Bobo [address] [address] 04/24/2019 Office Visit Sleep Disorders Celsa Tafoya CRNP [address] [address] [phone] Health Maintenance Due Date Last Done Comments DIABETES-EYE EXAM 02/24/2011 02/24/2010 (Do ne elsewhere), 12/18/2009, 02/18/2008 (Done elsewhere) PAP SMEAR-EVERY 3 YRS,AGES 21-65 05/11/2016 05/11/2013, 03/01/2008, 10/19/2006, Additional history exists CKD PHOS USE SMARTSET 10783 12/29/2018 04/01/2018, 08/26/2009, 08/25/2009, Additional history exists DIABETES-HGBA1C EVERY 6 MONTHS 03/27/2019 09/27/2018, 05/01/2018, 12/29/2017, Additional history exists Yearly B-12 05/16/2019 05/16/2018 BREAST CANCER SCREENING DISCUSSION YEARLY AGES 40-75 06/23/2019 06/23/2018, 05/09/2015, 07/12/2014, Additional history exists CKD GFR USE SMARTSET 76942 08/28/201902/26, 01/12/2019, 12/23/2018, Additional history exists DIABETES-FOOT EXAM 01/02/2020 01/01/2019, 0 12/29/2017, 10/21/2016, Additional history exists CKD HGB USE SMARTSET 85434 02/27/202002/26, 12/23/2018, 12/08/2018, Additional history exists PNEUMOCOCCAL [...] Documents on File Type Date Recorded Patient Karate Black Belt Expl anation Advanced Directive 08/22/2009 12:00 AM [...]
--- OUTSIDE RECORDS SUMMARY | 2023-06-01 05:48 | External Medical Summary ---
Author Name Unknown Address [facility] [place] [address] Phone Organization K01:[place] [id number] [address] [place] [id number] Laboratory Report Ordering Provider Test Date Status LONG CAMARENA 03/14/2019 13:54:00 Final Observation Date Value Abnormality Reference Status Folic Acid 03/14/2019 23:03 14.1 >4.5 Fi nal Performing Location [place] [id number]
--- OUTSIDE RECORDS SUMMARY | 2023-06-01 05:48 | External Medical Summary | Summary of Care ---
Author Name Unknown Organization [place] [address] Care Team Providers Care Manager Chemistry Name Role Phone Kevin Whiteside Primary Care Provider Reason for Visit * Reason Comments Dosage Adjustment Via Phone (anticoag Cl inic) Diabetes Follow-Up Encounter Details Date Type Department Care Team Description 03/20/2019 Pharmacy Pharmacy, [facility] [address] [facility] [place] [address] [facility] [address] Uncontrolled type 2 diabetes mellitus with stage 3 chronic kidney disease, with long-term current use of insulin ([facility])*; Type 2 diabetes mellitus with hemoglobin A1c goal of 7.0%-8.0% ([facility]) Allergies Active Allergy Reactions Severity Noted Date [...] MG/3ML SOPNIndications:DM type 2, goal: symptom mgmt ([facility]) Inject 1.8 mg under the skin daily. [...] Tab 5 01/12/2019 Active Vitamin D, Ergocalciferol, 30862 units CapsuleIndications: Vitamin D deficiency Take one capsule by mouth once a week 13 Cap 0 01/13/2019 Active Blood Glucose Monitoring Suppl ([employer] ULTRA 2) w/Device KIT Use to test [...] Overview: ICD-10 update of inactive term [place] filter in place 08/19/2014 History of pulmonary [...] 03/20/2019 8:21 AM EDT Sent message to [employer] to check on status of pump shipping. Follow up in 1 week for status. Pump shipped today 03/20. Rose Barton, Pharm D Clinical Pharmacist 03/20/2019, 8:21 AM documented in this encounter Plan of Treatment Upcoming Encounters Date Type Specialty Care Team Description 03/27/2019 Pharmacy Pharmacy [facility] Jeramie [address] [address] 04/24/2019 Office Visit Sleep Disorders Celsa Tafoya CRNP [address] [address] [phone] 06/15/2019 Office Visit Cardiology Marjorie Powell PA-C [address] [address] [phone] Health Maintenance Due Date Last Done Comments DIABETES-EYE EXAM 02/24/2011 02/24/2010 (Do ne elsewhere), 12/18/2009, 02/18/2008 (Done elsewhere) PAP SMEAR-EVERY 3 YRS,AGES 21-65 05/11/2016 05/11/2013, 03/01/2008, 10/19/2006, Additional history exists CKD PHOS USE SMARTSET 12626 12/29/2018 04/0 01/2018, 08/26/2009, 08/25/2009, Additional history exists BREAST CANCER SCREENING DISCUSSION YEARLY AGES 40-75 06/23/2019 06/23/2018, 05/09/2015, 07/12/2014, Additional history exists CKD GFR USE SMARTSET 24325 09/13/201903/14, 02/26/2019, 01/12/2019, Additional history exists DIABETES-HGBA1C EVERY 6 MONTHS 09/13/2019 03/14/2019, 09/27/2018, 05/01/2018, Additional history exists DIABETES-FOOT EXAM 01/02/2020 01/01/2019, 0 12/29/2017, 10/21/2016, Additional history exists CKD HGB USE SMARTSET 90829 02/27/202002/26, 12/23/2018, 12/08/2018, Additional history exists DIABETES-URINE [...] on File Type Date Recorded Patient Automatic Quilling Machine Operator Expl anation Advanced Directive 08/22/2009 [...]
--- OUTSIDE RECORDS SUMMARY | 2023-06-01 05:48 | External Medical Summary ---
Author Name Unknown Address [address] [facility] [place] [address] Phone Organization [id number]:[facility] Jeramie Ordaz [address] [place] [address] Laboratory Report Ordering Provider Test Date Status LONG CAMARENA 03/14/2019 13:54:00 Final Observation Date Value Abnormality Reference Status BUN 03/14/2019 16:01 34 Above high normal 6-20 Final Creatinine 03/14/2019 16:01 1.6 Above high normal 0.5- 1.0 Final Performing Location [facility] Jeramie Ordaz [address] [facility] [place] [address]
--- OUTSIDE RECORDS SUMMARY | 2023-06-01 05:49 | External Medical Summary | Summary of Care ---
Author Name Unknown Organization [facility] [address] Care Team Providers Care Assurance Manager Name Role Phone Migue Whiteside DO Primary Care Provider Reason for Visit * Reason Comments Hospital Follow-Up fell at home and shaheed t to ER, low bp and o2 Hospital Follow-Up Encounter Details Date Type Department Care Team Description 03/07/[address] [facility] [address] [facility] [place] [address] Migue Whiteside DO [address] [facility] [place] [address] Chronic diastolic congestive heart failure (HCC)*; Hypoxia; Hospital discharge follow-up; Restless legs syndrome Allergies Active Allergy Reactions Severity Noted Date Comments Heparin 09/04/2009 Heparin Induced Thrombocytopenia Empagliflozin Other (Please comment) Medium 05/17/2018 3 yeast infections in 6 weeks after starting Morphine And Related 09/16/1997 Hallucinations Tetanus Toxoid Other (Please comment) 06/15/2011 Passed out documented as of this encounter (statuses as of 03/07/2019) Medications Medication Sig Dispensed Refills Start Date [...] by mouth 2 times a day. 0 09/15/20 18 Active cyclobenzaprine (FLEXERIL) 10 MG Tablet [...] chew 90 Cap 5 12/19/19 19 Active traMADol (ULTRAM) 50 MG Tablet Take 1 Tab by mouth every 6 hours as needed for Pain. 30 Tab 0 12/19/19 19 Active gabapentin (NEURONTIN) 300 MG CapsuleIndications :Type 2 diabetes mellitus with hemoglobin A1c goal of 7.0%-8.0% ([facility]) Take 1 Cap by mouth 3 times a day. 270 Cap 5 01/02/20 19 Active spironolactone (ALDACTONE) 25 MG Tablet Take 0.5 Tabs by mouth daily. 45 Tab 5 01/13/20 19 Active Vitamin D, Ergocalciferol, 83664 units CapsuleIndications :Vitamin D deficiency Take one capsule by mouth once a week 13 Cap 0 01/14/20 19 Active Blood Glucose Monitoring Suppl (Fluid ULTRA 2) w/Device KIT Use to test [...] Box Dosing Unit 11 02/27/20 19 Active lisinopril (PRINIVIL) 2.5 MG TabletIndications: HTN, goal below 140/80,Acute diastolic congestive heart failure (HCC),Body mass index (BMI) of 50.0 to 59.9 in adult (HCC),Hypoxemia,OS A (obstructive sleep apnea),HTN, goal below 130/80 TAKE ONE TABLET BY MOUTH DAILY 90 Tab 4 03/05/20 19 Active furosemide (LASIX) 40 MG TabletIndications: Chronic diastolic congestive heart failure (HCC) Take 1.5 Tabs by mouth 2 times a day. 270 Tab 3 03/07/20 19 Active rOPINIRole (REQUIP) 2 MG TabletIndications: Restless legs syndrome Take 1 Tab by mouth at bedtime. 90 Tab 3 03/07/20 19 Active furosemide (LASIX) 80 MG Tablet Take 1 Tab by mouth 2 times a day. Med was increased during hospitalization 180 Tab 3 01/27/20 19 019 Discontinued rOPINIRole (REQUIP) 2 MG TabletIndications: Restless legs syndrome Take 1 Tab by mouth 3 times a day. 90 Tab 3 02/27/20 19 019 Discontinued furosemide (LASIX) 20 MG Tablet Take 20 mg by mouth 2 times a day. 0 03/05/20 19 019 Discontinued documented as of this encounter (statuses as of 03/07/2019) Active Problems Problem Noted Date Other atherosclerosis of [place] arteries of extremities, left leg 02/26/2019 Impetigo [...] as of this encounter (statuses as of 03/07/2019) Resolved Problems Problem Noted Date Resolved Date [...] as of this encounter (statuses as of 03/07/2019) Immunizations Name Administration Dates Next Due Pneumococcal [...] Sign Reading Time Taken Comments Blood Pressure 96/64 03/07/2019 1:19 PM EDT Pulse 80 03/07/2019 1:19 PM EDT Temperature 36.6 C (97.8 F) 03/07/2019 1:19 PM ED T Respiratory Rate 24 03/07/2019 1:19 PM EDT Oxygen Saturation 98% 03/07/2019 1:19 PM EDT 2L 02 via NC Inhaled Oxygen Concentration - - Weight 156 kg (344 lb) 03/07/2019 1:19 PM EDT Height - - Body Mass Index 57.24 01/23/2019 3:50 PM EDT documented in this encounter Patient Instructions * Patient Instructions* Migue Whiteside, - 03/07/2019 1:36 PM EDT Taking Medicine Safely Medicine is given [...] street drugs, herbs, supplements, or even some owei-dpp-loccyzm medicines can be harmful. Talk to your [...] to get rid of medicine: Call your [facility] or [facility] government's household trash and recycling service and ask if a drug take-back program is available in your community. Call your local pharmacy and ask the right way to get rid of the medicine. Go to http://www.fda.gov/ForConsumers/ConsumerUpdates/fvz919351 to learn how to get rid of [...] brand-name medicine, unless their doctor says otherwise. Vincenzo Mendoza, [address] [place] [address]. All rights reserved. This information is not [...] and pharmacist about all the prescription and hlyi-nuh-dqsfxkz medicines you take.This includes vitamins and herbal remedies. Tell your doctor and pharmacist if you have any medical conditions or allergies to any medicine or food, or if you are or . Keep a list of all your medicines. Use the sample to the right as a guide for the type of information needed. Vincenzo AcostaChan [facility], [address] [place] [address]. All rights reserved. This information is not intended as a substitute for professional medical care. Always follow your healthcare professional's instructions. documented in this encounter Progress Notes * Migue Whiteside DO - 03/07/2019 1:27 PM EDT Nursing Notes: Izabela Crump, COOK TORTILLA 03/07/19 1323 Signed The patient has been properly identified by confirmation of name and date of . Chief Complaint Patient presents with Hospital Follow-Up fell at home and went to ER, low bp and o2 ASSESSMENT/PLAN: 1. Chronic diastolic congestive heart failure (HCC) Patient had fall and low BP along with hypoxic state Seen in hospital, improved on O2 and diuresis Due to low BPs they reduced her dose of Lasix Seeing cards next week, will appreciate their recs in this regard. LE edema slightly worse in legs today than on my last eval, but very simliar. - furosemide (LASIX) 40 MG Tablet; Take 1.5 Tabs by mouth 2 times a day. Dispense: 270 Tab; Refill:3 2. Hypoxia Patient with baseline hypoxia and worsening hypoxia on exertion. Will write RX for oxygen concentrator, portable so she can stay mobile. - OXYGEN 3. Hospital discharge follow-up Educated on discharge recs Discussed the changed dose of lasix. Patient to keep close eye on her sx May need to increase dose again - DISCH MED RECON CUR MED LIS 4. Restless legs syndrome Stable, doing better on the 2mg dose - rOPINIRole (REQUIP) 2 MG Tablet; Take 1 Tab by mouth at bedtime. Dispense: 90 Tab; Refill: 3 HPI: Stephanie Camp is a 63 year old female who: Presents in f/u today from hospital visit for fall, hypoxia, low BP. Had evaluation which revealed low O2 status, but No other acute findings that suggested another etiology. Patient doing ok, no injuries from the fall. Reduced dose of lasix. Has noticed less urination. ROS: CONSTITUTIONAL: no weight loss, no fevers, no sweats HEENT: no change in vision or hearing, no congestion, no sore throat CARDIAC: no chest pain, no palpitations, no orthopnea, no AVENDAÑO, no syncope RESP: no wheezing and + SOB GI: no pain, no NVDC, no melena/hematochezia SKIN: no rashes MSK: no significant joint or muscle pain and no swelling : no dysuria or discharge NEURO: no memory loss, no numbness PSYCH: no SI/HI PHYSICAL EXAMINATION: BP 96/64 | Pulse 80 | Temp (Src) 97.8 (Tympanic) | Resp 24 | Wt 344 lbs (156.037kg) | BMI 57.24 kg/m | BSA 2.67 m | SaO2 98[2L 02 via NC[% | LMP 03/11/2003 GENERAL: alert, [...] EXTREMITIES: no joint deformities, effusion, or inflammation, +2 pitting edema of the R leg, <+1pitting edema of the left LE, no clubbing, no cyanosis, Full ROM, Pulses Intact, Strength equal bilaterally 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 Nocturnal hypoxemia G47.34 ELISSA (obstructive sleep apnea) G47.33 Venous insufficiency I87.2 HTN, goal below 130/80 I10 History of pulmonary embolus (PE) Z86.711 Statin intolerance Z78.[address] Z95.828 Type 2 diabetes mellitus with hemoglobin A1c goal of 7.0%-8.0% ([facility]) E11.9 Fibromyalgia M79.7 Abnormality of gait R26.9 Restless legs syndrome G25.81 Gastroesophageal reflux disease with esophagitis K21.0 Uncontrolled type 2 diabetes mellitus with stage 3 chronic kidney disease, with long-term current use of insulin ([facility]) E11.22, E11.65, N18.3, Z79.4 Body mass index (BMI) of 50.0 to 59.9 in adult ([facility]) Z68.43 Controlled substance agreement signed Z79.899 Chronic diastolic congestive heart failure ([facility]) I50.32 Thoracic back pain M54.6 Mild episode of recurrent major depressive disorder ([facility]) F33.0 Impetigo L01.00 Lumbar radiculopathy M54.16 Other atherosclerosis of [place] arteries of extremities, left leg ([facility]) I70.292 Past Medical History: Diagnosis Date ELSIE (acute kidney injury) ([facility]) 06/12/2018 Allergic rhinitis due to other allergen Backache Diverticulosis of colon 01/28/06 DM type 2, not at goal ([facility]) ELLIE (generalized anxiety disorder) 09/13/2009 [address] filter in place 08/19/2014 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[facility]) 06/12/2018 History of pulmonary embolus (PE) 07/16/2014 HTN, goal below 140/90 Obesity, BMI not known Perforation of intestine ([facility]) 1996 COLON -- 1996 Pneumonia in aspergillosis(484.6) 09/14/2009 Spontaneous pneumothorax 09/14/2009 Statin intolerance 07/16/2014 Type 2 diabetes mellitus with hemoglobin A1c goal of 7.0%-8.0% ([facility]) 10/14/2014 ICD-10 update of inactive term Vaginal karmen 07/13/2018 Past Surgical History: Procedure Laterality Date ARTHROPLASTY KNEE TOTAL Right 07/24/14 R COLONOSCOPY, DIAGNOSTIC (RECTUM) 02/18/2016 normal, repeat 10 yrs/[facility] COLONOSCOPY, GI REFERRAL OP 01/28/06 diverticulosis--repeat 10 years INCISION OF [place], PLANNED 06/03/2011 TRACHEOSTOMY PLANNED performed by DANNY HOLDER at [place] [facility] KNEE ARTHROSCOPY/DEBRIDEMENT 07/[address] PERMANENT GASTROSTOMY TUBE 09/06/09 GASTROSTOMY WITH CONSTUCTION GASTRIC TUBE performed by AMADOU NUNEZ at OR [facility] REMOVAL OF THYROID GLAND 06/15/2011 THYROIDECTOMY INCLUDING SUBSTERNAL THYROID CERVICAL APPROACH performed by DANNY HOLDER at OR [facility] REMOVE GALLBLADDER 09/06/09 CHOLECYSTECTOMY performed by AMADOU NUNEZ at OR [facility] REPAIR RECURRENT INCISIONAL HERNIA 1998 REVISION OF COLOSTOMY, SIMPLE 1998 SUTURE, LARGE INTESTINE W/COLOSTOMY 1996 perforation R colon with colostomy VENA CAVA FILTER/LIGATION/CLIP 08/19/09 [place] filter placement through the right femoral 08/19/[address] Lerma at [facility] Current Outpatient Medications Medication Sig [...] day. 30 mL 4 Vitamin D, Ergocalciferol, 92166 units Capsule Take one capsule by mouth [...] 20 MG PO CPDR one tablet daily oxygen GAS 4 LPM bled through CPAP 11 cwp during all periods of sleep. (Patient taking differently:Pt to use Oxygen with activity during the day. 4 LPM bled through CPAP 11 cwp during all periods ofsleep. Indications: 2L during the day, 4L at bedtime) 1 Each 0 Review of patient's allergies indicates: Allergen Reactions Jardiance [Empagliflozin] Other (Please comment) 3 yeast infections in 6 weeks after starting Heparin Heparin Induced Thrombocytopenia Morphine And Related Hallucinations Tetanus Toxoid Other (Please comment) Passed out Migue Whiteside DO [facility] [address] [facility] [place] [address] (This note was completed using the dictation program Fluency Direct. As such, there may be misspellings, word substitutions, or other variations that should not change the essence of the clinical content of this encounter note.If there is need for further clarification, please direct questions to the provider listed above.) documented in this encounter Nursing Notes * Izabela Crump LPN - 03/07/2019 1:19 PM EDT The patient has been properly identified by confirmation of name and date of . Chief Complaint Patient presents with Hospital Follow-Up fell at home and went to ER, low bp and o2 documented in this encounter Miscellaneous Notes * Addendum Note - Migue Whiteside DO - 03/07/2019 1:57 PM EDT Addended by: MIGUE WHITESIDE on: 03/07/2019 01:57 PM Modules accepted: Orders documented in this encounter Plan of Treatment Upcoming Encounters Date Type Specialty Care Team Description 03/12/2019 Pharmacy Pharmacy [facility] [address] [facility] [place] [address] 03/14/2019 Pharmacy [facility]acy [facility] [address] [place] [address] 03/14/2019 Office Visit Cardiology Rey Woodall MD [address] [place] [address] [phone] 04/24/2019 Office Visit Sleep Disorders Celsa Tafoya CRNP [address] [place] [address] [phone] Health Maintenance Due Date Last Done Comments DIABETES-EYE EXAM 02/24/2011 02/24/2010 (Do ne elsewhere), 12/18/2009, 02/18/2008 (Done elsewhere) PAP SMEAR-EVERY 3 YRS,AGES 21-65 05/11/2016 05/11/2013, 03/01/2008, 10/19/2006, Additional history exists CKD PHOS USE SMARTSET 77638 12/29/2018 04/0 01/2018, 08/26/2009, 08/25/2009, Additional history exists DIABETES-HGBA1C EVERY 6 MONTHS 03/27/2019 09/27/2018, 05/01/2018, 12/29/2017, Additional history exists Yearly B-12 05/16/2019 05/16/2018 BREAST CANCER SCREENING DISCUSSION YEARLY AGES 40-75 06/23/2019 06/23/2018, 05/09/2015, 07/12/2014, Additional history exists CKD GFR USE SMARTSET 40709 08/28/201902/26, 01/12/2019, 12/23/2018, Additional history exists DIABETES-FOOT EXAM 01/02/2020 01/01/2019, 0 12/29/2017, 10/21/2016, Additional history exists CKD HGB USE SMARTSET 14394 02/27/202002/26, 12/23/2018, 12/08/2018, Additional history exists PNEUMOCOCCAL [...] failure (HCC)- Primary Chronic diastolic heart failure Hypoxia Hypoxemia Hospital discharge follow-up Other follow-up examination Restless legs syndrome Restless legs syndrome (RLS) documented in this encounter Advance Directives Documents on File Type Date Recorded Patient Base Engineer Expl anation Advanced Directive 08/22/2009 12:00 [...]
--- OUTSIDE RECORDS SUMMARY | 2023-06-01 05:49 | External Medical Summary | Summary of Care ---
Author Name Unknown Organization [place] [address] Care Team Providers Care Ships Equipment Engineer Name Role Phone Kevin Whiteside Primary Care Provider Reason for Visit * Reason Comments case management Encounter Details Date Type Department Care Team Description 03/08/2019 Telephone Internal Medicine [address] [address] Frances Nicholson RN 132 [place] [address] case management Allergies Active Allergy Reactions Severity Noted Date Comments Heparin 09/04/2009 Heparin Induced Thrombocytopenia Empagliflozin Other (Please comment) Medium 05/17/2018 3 yeast infections in 6 weeks after starting Morphine And Related 09/16/1997 Hallucinations Tetanus Toxoid Other (Please comment) 06/15/2011 Passed out documented as of this encounter (statuses as of 03/08/2019) Medications Medication Sig Dispensed Refills Start Date [...] Tab 5 01/12/2019 Active Vitamin D, Ergocalciferol, 88448 units CapsuleIndications: Vitamin D deficiency Take one capsule by mouth once a week 13 Cap 0 01/13/2019 Active Blood Glucose Monitoring Suppl (TargovaxUCH ULTRA 2) w/Device KIT Use to test [...] as of this encounter (statuses as of 03/08/2019) Active Problems Problem Noted Date Other atherosclerosis of [place] arteries of extremities, left leg 02/26/2019 Impetigo [...] as of this encounter (statuses as of 03/08/2019) Resolved Problems Problem Noted Date Resolved Date [...] as of this encounter (statuses as of 03/08/2019) Immunizations Name Administration Dates Next Due Pneumococcal [...] Telephone Encounter - Frances Nicholson RN - 03/08/2019 12:17 PM EDT PMH: DM, HTN, SOA with CPAP, history of PE, frank filter in place, dyslipidemia-statin intol, GERD, Fibromyalgia, depression/anxiety New-acute diastolic HF and ELSIE sent from PCP office abnormal labs and shortness of breath. x-ray concerning for atypical pneumonia 06/06/18-[facility] admit Acute respiratory failure with hypoxia [...] weight 343 on d/c 06/10/18 d/c from [facility] new on Lasix, potassium and Mg Stopped Metformin and HCTZ 12/08 [facility] admit acute decompensated diastolic HF Consulted Cardiology and nephrology 12/14/18 D/c to home Added Spirolactone Increased Lasix to 80 mg BID (4-6 hours apart) Weekly BMP x 4 weights and home BP cuff D/c weight 351.2 12/18-Dr Whiteside 01/12-cards 01/24-neph 12/23 [facility] admit with Nausea, abd pain, intermittent fever (afebrile in EE), headaches, diffuse body aches. Creat elevated 2.52 on admit UTI- for klebselli 12/27-d/c to home 10 days of Omnicef for UTI 2nd set of blood cultures neg d/c weight 157.8 Kg (D/C weight last admit was 159.3) 01/01-Dr Whiteside 01/11-sleep med-but had to alcel sleep study due to hosp 01/12-cards 02/28-[facility] admit for fall-slipped, couldn't get up Fall: Fell after legs slid on the floor Possible related to orthostatic vs mechanical fall Xray hip showed no fracture or dislocation within the pelvis or hips. Xray of knees showed No fractures within the right or left knee. -[id number] 03/04 D/C form [facility] Requip 2 mg HS Lasix decreased to 60 mg, but if weight increases by more than 2 lbs, needs to take extra 20 mg of Lasix Needs BMP in 1 week O2 at HS and with ambulation 03/05-Dr Whiteside ROSA 03/04 D/C from [facility], 2nd call Reports that she saw Dr Whiteside yesterday and he increased her Lasix to 60 mg 2x/day Says that she wasn't able to weigh as her scale is behind a bunch of boxes as she is moving tomorrow. Reports that since she has been on the O2 with activity, she is feeling much better. Reports thatBS have been excellent since coming out of hosp Denies chest pain Denies increased SOB No cough Using O2 with activity and with C-PAP HS Denies increased lower leg edema Denies N/V or decreased intake Denies unmanaged pain-has neuropathy which is chronic Denies diff with bowels or bladder Instructed pt to attempt to find her scale-stressed the importance of daily weights and to report weigh gain of 3 lbs or more in 24 hour or 5 lbs or more in a week, increased SOB, swelling, weakness,dizziness, BS >250 for longer than 24 hour or any other concerns Pt would also like to continue monitoring her BP-will send request to continue BP monitoring l[facility] Encouraged to avoid salt/salty foods Stressed safety/fall precautions Call next week Frances Nicholson RN, [facility] Swimming Pool Plasterer Helper [phone] documented in this encounter Plan of Treatment Upcoming Encounters Date Type Specialty Care Team Description 03/12/2019 Pharmacy Pharmacy [facility] [address] [facility] [place] [address] 03/14/2019 [facility] [place] [address] 03/14/2019 Office Visit Cardiology Rey Woodall MD [address] [place] [address] [phone] 04/24/2019 Office Visit Sleep Disorders [facility] [place] [address] [phone] Health Maintenance Due Date Last Done Comments DIABETES-EYE EXAM 02/24/2011 02/24/2010 (Do ne elsewhere), 12/18/2009, 02/18/2008 (Done elsewhere) PAP SMEAR-EVERY 3 YRS,AGES 21-65 05/11/2016 05/11/2013, 03/01/2008, 10/19/2006, Additional history exists CKD PHOS USE SMARTSET 96349 12/29/2018 04/0 01/2018, 08/26/2009, 08/25/2009, Additional history exists DIABETES-HGBA1C EVERY 6 MONTHS 03/27/2019 09/27/2018, 05/01/2018, 12/29/2017, Additional history exists Yearly B-12 05/16/2019 05/16/2018 BREAST CANCER SCREENING DISCUSSION YEARLY AGES 40-75 06/23/2019 06/23/2018, 05/09/2015, 07/12/2014, Additional history exists CKD GFR USE SMARTSET 15719 08/28/201902/26, 01/12/2019, 12/23/2018, Additional history exists DIABETES-FOOT EXAM 01/02/2020 01/01/2019, 0 12/29/2017, 10/21/2016, Additional history exists CKD HGB USE SMARTSET 10002 02/27/202002/26, 12/23/2018, 12/08/2018, Additional history exists PNEUMOCOCCAL [...] Documents on File Type Date Recorded Patient Advanced Practice Nurse Psychotherapist Expl anation Advanced Directive 08/22/2009 12:00 AM [...]
--- OUTSIDE RECORDS SUMMARY | 2023-06-01 05:49 | External Medical Summary | Summary of Care ---
Author Name Unknown Organization [place] [address] Care Team Providers Care Linseed Cake Trimmer Name Role Phone Kevin Whiteside Primary Care Provider Encounter Details Date Type Department Care Team Description 03/03/2019 Scan Encounter Unspecified Department <No scans attached> Allergies Active Allergy Reactions Severity Noted Date Comments Heparin 09/04/2009 Heparin Induced Thrombocytopenia Empagliflozin Other (Please comment) Medium 05/17/2018 3 yeast infections in 6 weeks after starting Morphine And Related 09/16/1997 Hallucinations Tetanus Toxoid Other (Please comment) 06/15/2011 Passed out documented as of this encounter (statuses as of 03/05/2019) Medications Medication Sig Dispensed Refills Start Date End Date Status PRILOSEC 20 MG PO CPDR one tablet daily 0 Active oxygen GASIndications:ELISSA (obstructive sleep apnea) 4 LPM bled through CPAP 11 cwp during all periods of sleep. 1 Each 0 6 Active docusate sodium (STOOL SOFTENER) 100 MG Capsule Take 100 mg by mouth 2 times a day as needed for Constipation. 0 Active MAG64 64 MG TBEC Take 64 mg by mouth 2 times a day. 0 8 Active cyclobenzaprine (FLEXERIL) 10 MG Tablet TAKE ONE TABLET BY MOUTH AT BEDTIME NEEDED FOR MUSCLE SPASM 90 Tab 2 8 Active levothyroxine (LEVOXYL) 200 MCG TabletIndications:P ostsurgical hypothyroidism TAKE ONE TABLET BY MOUTH ONE TIME DAILY at least 30 minutes prior to breakfast or other meds 90 Tab 5 8 Active liraglutide (VICTOZA) 18 MG/3ML SOPNIndications:DM type 2, goal: symptom mgmt ([facility]) Inject 1.8 mg under the skin daily. As directed 9 Pre-filled Pen Syringe Dosing Unit 11 8 Active Nortriptyline HCl (PAMELOR) 50 MG CapsuleIndications: Fibromyalgia Take 1 Cap by mouth at bedtime. 90 Cap 5 8 Active Glucose Blood (ONETOUCH ULTRA BLUE) STRP Check sugars 3-4 times daily 360 Strip 5 8 Active ONETOUCH DELICA LANCETS 33G MISC Check blood sugars 3-4 times daily 180 Each 5 8 Active Glucose Blood (ACCU-CHEK HARRIS PLUS) STRP Test sugar 3-4 times a day. 400 Strip 3 8 Active ACCU-CHEK SOFTCLIX LANCETS MISC Test sugar 3-4 times a day. Ok to substitute Fastclix lancets, if needed. 400 Box Dosing Unit 3 8 Active clonazePAM (KLONOPIN) 0.5 MG TabletIndications:A nxiety state TAKE ONE TABLET BY MOUTH TWICE DAILY 180 Tab 3 8 Active lisinopril (PRINIVIL) 2.5 MG TabletIndications:H TN, goal below 140/80,Acute diastolic congestive heart failure (HCC),Body mass index (BMI) of 50.0 to 59.9 in adult ([facility]),Hypoxemia,ELISSA (obstructive sleep apnea),HTN, goal below 130/80 Take 1 Tab by mouth daily. 31 Tab 5 9 Active Insulin Degludec (TRESIBA FLEXTOUCH) 200 UNIT/ML SOPN Inject up to 160 units subcutaneously once daily as directed 9 mL 5 9 Active DULoxetine (CYMBALTA) 60 MG CPEPIndications:Fib romyalgia,Moderate episode of recurrent major depressive disorder ([facility]),Primary osteoarthritis of both knees Take 1 Cap by mouth daily. Do not cut, crush or chew 90 Cap 5 9 Active traMADol (ULTRAM) 50 MG Tablet Take 1 Tab by mouth every 6 hours as needed for Pain. 30 Tab 0 9 Active gabapentin (NEURONTIN) 300 MG CapsuleIndications: Type 2 diabetes mellitus with hemoglobin A1c goal of 7.0%-8.0% ([facility]) Take 1 Cap by mouth 3 times a day. 270 Cap 5 9 Active spironolactone (ALDACTONE) 25 MG Tablet Take 0.5 Tabs by mouth daily. 45 Tab 5 9 Active Vitamin D, Ergocalciferol, 62134 units CapsuleIndications: Vitamin D deficiency Take one capsule by mouth once a week 13 Cap 0 9 Active furosemide (LASIX) 80 MG Tablet Take 1 Tab by mouth 2 times a day. Med was increased during hospitalization 180 Tab 3 9 Active Blood Glucose Monitoring Suppl ([employer] ULTRA 2) w/Device KIT Use to test BG values 1 Kit 0 9 Active insulin aspart (NOVOLOG FLEXPEN) 100 UNIT/ML SOPN inject 25 units with breakfast, 20 units with lunch and 30 units with dinner plus sliding scale up to 150 units per day. 30 mL 4 9 Active levothyroxine (LEVOXYL) 25 MCG [...] two weeks. 60 g 1 9 Active rOPINIRole (REQUIP) 2 MG TabletIndications:R estless legs syndrome Take 1 Tab by mouth 3 times a day. 90 Tab 3 9 Active Insulin Pen Needle (BD PEN NEEDLE SHORT U/F) 31G X 8 MM Use 5 times daily with insulin 200 Box Dosing Unit 11 9 Active documented as of this encounter (statuses as of 03/05/2019) Active Problems Problem Noted Date Other atherosclerosis of [place] arteries of extremities, left leg 02/26/2019 Impetigo [...] as of this encounter (statuses as of 03/05/2019) Resolved Problems Problem Noted Date Resolved Date [...] as of this encounter (statuses as of 03/05/2019) Immunizations Name Administration Dates Next Due Pneumococcal [...] Encounters Date Type Specialty Care Team Description 03/05/2019 Pharmacy [facility] [address] [place] [address] Uncontrolled type 2 diabetes mellitus with stage 3 chronic kidney disease, with long-term current use of insulin ([facility])*; Type 2 diabetes mellitus with hemoglobin A1c goal of 7.0%-8.0% ([facility]) 03/07/2019 Office Visit Family Medicine Kevin Whiteside DO [address] [place] [address] [phone] 03/12/2019 Pharmacy [facility] [address] [place] [address] 03/14/2019 Pharmacy Pharmacy [facility] [address] [place] [address] 03/14/2019 Office Visit Cardiology Rey Woodall MD [address] [place] [address] [phone] 04/24/2019 Office Visit Sleep Disorders Celsa Tafoya CRNP [address] [place] [address] [phone] Health Maintenance Due Date Last Done Comments DIABETES-EYE EXAM 02/24/2011 02/24/2010 (Do ne elsewhere), 12/18/2009, 02/18/2008 (Done elsewhere) PAP SMEAR-EVERY 3 YRS,AGES 21-65 05/11/2016 05/11/2013, 03/01/2008, 10/19/2006, Additional history exists CKD PHOS USE SMARTSET 61158 12/29/2018 04/0 01/2018, 08/26/2009, 08/25/2009, Additional history exists DIABETES-HGBA1C EVERY 6 MONTHS 03/27/2019 09/27/2018, 05/01/2018, 12/29/2017, Additional history exists Yearly B-12 05/16/2019 05/16/2018 BREAST CANCER SCREENING DISCUSSION YEARLY AGES 40-75 06/23/2019 06/23/2018, 05/09/2015, 07/12/2014, Additional history exists CKD GFR USE SMARTSET 69425 08/28/201902/26, 01/12/2019, 12/23/2018, Additional history exists DIABETES-FOOT EXAM 01/02/2020 01/01/2019, 0 12/29/2017, 10/21/2016, Additional history exists CKD HGB USE SMARTSET 37709 02/27/202002/26, 12/23/2018, 12/08/2018, Additional history exists PNEUMOCOCCAL [...] Documents on File Type Date Recorded Patient Stone And Plate Preparer Apprentice Expl anation Advanced Directive 08/22/2009 12:00 [...]
--- OUTSIDE RECORDS SUMMARY | 2023-06-01 05:49 | External Medical Summary | Summary of Care ---
Author Name Unknown Organization [place] [address] Care Team Providers Care Fiberglass Luggage Molder Name Role Phone Kevin Whiteside Primary Care Provider Reason for Visit * Reason Comments Dosage Adjustment Via Phone (anticoag Cl inic) Diabetes Follow-Up Encounter Details Date Type Department Care Team Description 03/05/2019 Pharmacy Pharmacy, [facility] [address] [address] [facility] [address] [place] [address] Uncontrolled type 2 diabetes mellitus with stage 3 chronic kidney disease, with long-term current use of insulin ([facility])*; Type 2 diabetes mellitus with hemoglobin A1c [...] (HCC),Hypoxemia,ELISSA (obstructive sleep apnea),HTN, goal below 130/80 Take [...] Tab 5 9 Active Vitamin D, Ergocalciferol, 28737 units CapsuleIndications: Vitamin D deficiency Take one capsule by mouth once a week 13 Cap 0 9 Active furosemide (LASIX) 80 MG Tablet Take 1 Tab by mouth 2 times a day. Med was increased during hospitalization 180 Tab 3 9 Active Blood Glucose Monitoring Suppl ([employer] ULTRA 2) w/Device KIT Use to test [...] adult ([facility]),Hypoxemia,LEISSA (obstructive sleep apnea),HTN, goal below 140/80 Take [...] Problems Problem Noted Date Other atherosclerosis of [place] arteries of extremities, left leg 02/26/2019 Impetigo [...] Progress Notes * Rose Barton RPh - 03/05/2019 9:33 AM EDT Awaiting pump status reply from [employer]. Follow up in 1 week unless contacted sooner. Rose Barton, Pharm D Clinical Pharmacist 03/05/2019, 9:33 AM documented in this encounter Plan of Treatment Upcoming Encounters Date Type Specialty Care Team Description 03/07/2019 Office Visit Family Medicine Kevin Whiteside DO [address] [place] [address] [phone] 03/12/2019 Pharmacy Pharmacy [facility] [place] [address] [place] [address] 03/14/2019 Pharmacy Pharmacy [facility] [place] [address] [place] [address] 03/14/2019 Office Visit Cardiology Rey Woodall MD [address] [place] [address] [phone] 04/24/2019 Office Visit Sleep Disorders Celsa Tafoya CRNP [address] [place] [address] [phone] Health Maintenance Due Date Last Done Comments DIABETES-EYE EXAM 02/24/2011 02/24/2010 (Do ne elsewhere), 12/18/2009, 02/18/2008 (Done elsewhere) PAP SMEAR-EVERY 3 YRS,AGES 21-65 05/11/2016 05/11/2013, 03/01/2008, 10/19/2006, Additional history exists CKD PHOS USE SMARTSET 80998 12/29/2018 04/0 01/2018, 08/26/2009, 08/25/2009, Additional history exists DIABETES-HGBA1C EVERY 6 MONTHS 03/27/2019 09/27/2018, 05/01/2018, 12/29/2017, Additional history exists Yearly B-12 05/16/2019 05/16/2018 BREAST CANCER SCREENING DISCUSSION YEARLY AGES 40-75 06/23/2019 06/23/2018, 05/09/2015, 07/12/2014, Additional history exists CKD GFR USE SMARTSET 32939 08/28/201902/26, 01/12/2019, 12/23/2018, Additional history exists DIABETES-FOOT EXAM 01/02/2020 01/01/2019, 0 12/29/2017, 10/21/2016, Additional history exists CKD HGB USE SMARTSET 09815 02/27/202002/26, 12/23/2018, 12/08/2018, Additional history exists PNEUMOCOCCAL [...] Documents on File Type Date Recorded Patient Old Coin Dealer Expl anation Advanced Directive 08/22/2009 12:00 AM [...]
--- OUTSIDE RECORDS SUMMARY | 2023-06-01 05:49 | External Medical Summary | Summary of Care ---
Author Name Unknown Organization [place] [address] Care Team Providers Care Caisson Worker Name Role Phone Kevin Whiteside Primary Care Provider Reason for Visit * Reason Comments Dosage Adjustment Via Phone (anticoag Cl inic) Diabetes Follow-Up Encounter Details Date Type Department Care Team Description 03/05/2019 Pharmacy Pharmacy, [facility] [address] [address] [facility] [address] [place] [address] Uncontrolled type 2 diabetes mellitus with stage [...] Tab 5 9 Active Vitamin D, Ergocalciferol, 84147 units CapsuleIndications: Vitamin D deficiency Take one capsule by mouth once a week 13 Cap 0 9 Active furosemide (LASIX) 80 MG Tablet Take 1 Tab by mouth 2 times a day. Med was increased during hospitalization 180 Tab 3 9 Active Blood Glucose Monitoring Suppl ([facility] ULTRA 2) w/Device KIT Use to [...] Problems Problem Noted Date Other atherosclerosis of [place] arteries of extremities, left leg 02/26/2019 Impetigo [...] Medicine Kevin Whiteside DO [address] [place] [address] [phone] 03/12/2019 Pharmacy Pharmacy [facility] [place] [address] [place] [address] 03/14/2019 Pharmacy Pharmacy [facility] [place] [address] [place] [address] 03/14/2019 Office Visit Cardiology Rey Woodall MD [address] [place] [address] [phone] 04/24/2019 Office Visit Sleep Disorders Celsa Tafoya CRNP [address] [place] [address] [phone] Health Maintenance Due Date Last Done Comments DIABETES-EYE EXAM 02/24/2011 02/24/2010 (Do ne elsewhere), 12/18/2009, 02/18/2008 (Done elsewhere) PAP SMEAR-EVERY 3 YRS,AGES 21-65 05/11/2016 05/11/2013, 03/01/2008, 10/19/2006, Additional history exists CKD PHOS USE SMARTSET 75317 12/29/2018 04/0 01/2018, 08/26/2009, 08/25/2009, Additional history exists DIABETES-HGBA1C EVERY 6 MONTHS 03/27/2019 09/27/2018, 05/01/2018, 12/29/2017, Additional history exists Yearly B-12 05/16/2019 05/16/2018 BREAST CANCER SCREENING DISCUSSION YEARLY AGES 40-75 06/23/2019 06/23/2018, 05/09/2015, 07/12/2014, Additional history exists CKD GFR USE SMARTSET 11082 08/28/201902/26, 01/12/2019, 12/23/2018, Additional history exists DIABETES-FOOT EXAM 01/02/2020 01/01/2019, 0 12/29/2017, 10/21/2016, Additional history exists CKD HGB USE SMARTSET 38128 02/27/202002/26, 12/23/2018, 12/08/2018, Additional history exists PNEUMOCOCCAL [...] Documents on File Type Date Recorded Patient Loom Control Chain Builder Expl anation Advanced Directive 08/22/2009 12:00 [...]
--- OUTSIDE RECORDS SUMMARY | 2023-06-01 05:49 | External Medical Summary | Summary of Care ---
Author Name Unknown Organization [place] [address] Care Team Providers Care Home Insurance Agent Name Role Phone Kevin Whiteside Primary Care Provider Reason for Visit * Reason Comments eRx-Medication Refill Encounter Details Date Type Department Care Team Description 03/04/2019 Refill Cardiology, [facility] [address] [place] [address] Michael Saenz PA-C [address] [place] [address] HTN, goal below 140/80; Acute diastolic congestive heart failure (HCC); Body mass index (BMI) of 50.0 to 59.9 in adult (HCC); Hypoxemia; ELISSA (obstructive sleep apnea); HTN, goal below 130/80 Allergies Active Allergy [...] 5 01/13/20 19 Active Vitamin D, Ergocalciferol, 55894 units CapsuleIndications :Vitamin D deficiency Take one capsule by mouth once a week 13 Cap 0 01/14/20 19 Active furosemide (LASIX) 80 MG Tablet Take 1 Tab by mouth 2 times a day. Med was increased during hospitalization 180 Tab 3 01/27/20 19 Active Blood Glucose Monitoring Suppl ([employer] ULTRA 2) w/Device KIT Use to test [...] weeks. 60 g 1 02/14/20 19 Active rOPINIRole (REQUIP) 2 MG TabletIndications: Restless legs syndrome Take 1 Tab by mouth 3 times a day. 90 Tab 3 02/27/20 19 Active Insulin Pen Needle (BD PEN [...] DAILY 90 Tab 4 03/05/20 19 Active lisinopril (PRINIVIL) 2.5 MG TabletIndications: HTN, goal below 140/80,Acute diastolic congestive heart failure (HCC),Body mass index (BMI) of 50.0 to 59.9 in adult (HCC),Hypoxemia,OS A (obstructive sleep apnea),HTN, goal below 130/80 Take 1 Tab by mouth daily. 31 Tab 5 11/02/19 19 019 Discontinued documented as of this encounter (statuses as of 03/05/2019) Active Problems Problem Noted Date Other atherosclerosis of [place] arteries of extremities, left leg 02/26/2019 Impetigo [...] 10/14/2014 Overview: ICD-10 update of inactive term [place] filter in place 08/19/2014 History of pulmonary [...] encounter Miscellaneous Notes * Telephone Encounter - Kendra Hernandez Jr., DO - 03/05/2019 3:52 PM EDT Signed Prescriptions: Disp Refills lisinopril (PRINIVIL) 2.5 MG Tablet 90 Tab 4 Sig: TAKE ONE TABLET BY MOUTH DAILY Authorizing Provider: KENDRA HERNANDEZ JR * Telephone Encounter - Madison Hennessy LPN - 03/05/2019 2:55 PM EDT Pending Prescriptions: Disp Refills lisinopril (PRINIVIL) 2.5 MG Tablet [Phar*90 Tab 4 Sig: TAKE ONE TABLET BY MOUTH DAILY * Telephone Encounter - Madison Hennessy LPN - 03/05/2019 2:54 PM EDT Pending Prescriptions: Disp Refills lisinopril (PRINIVIL) 2.5 MG Tablet [Phar*90 Tab 4 Sig: TAKE ONE TABLET BY MOUTH DAILY Last Office Visit: 01/12/2019 Next Office Visit: 03/14/2019 Scheduled Provider(s): Rey Woodall MD If no future appointments scheduled, and last appointment is greater than a year ago, please schedule patient for a follow-up appointment Last date the medication was ordered: 11/02/2018 Patient Phone Numbers Labs: Lab Results Component Value Date/Time CREAT 2.06 (A) 02/26/2019 CREAT 1.6 (H) 01/12/2019 04:01 PM POTASSIUM 5.1 01/12/2019 04:01 PM TSH 3.14 05/01/2018 09:12 AM LDLCALC 111 08/01/2018 08:29 AM LDLDIRECT 109 07/14/2017 12:35 PM ALT 23 10/26/2018 09:39 AM HGBA1C 9.5 (H) 09/27/2018 01:48 PM documented in this encounter Plan of Treatment Upcoming Encounters Date Type Specialty Care Team Description 03/05/2019 Pharmacy Pharmacy [facility] [address] [place] [address] Uncontrolled type 2 diabetes mellitus with stage 3 chronic kidney disease, with long-term current use of insulin (HCC)*; Type 2 diabetes mellitus with hemoglobin A1c goal of 7.0%-8.0% (HCC) 03/07/2019 Office Visit Family Medicine Kevin Whiteside, [address] [place] [address] [phone] 03/12/2019 Pharmacy Pharmacy [facility] [address] [place] [address] 03/[facility] [address] [place] [address] 03/14/2019 Office Visit Cardiology Rey Woodall MD [address] [place] [address] [phone] 04/24/2019 Office Visit Sleep Disorders Celsa Tafoya CRNP [address] [place] [address] [phone] Health Maintenance Due Date Last Done Comments DIABETES-EYE EXAM 02/24/2011 02/24/2010 (Do ne elsewhere), 12/18/2009, 02/18/2008 (Done elsewhere) PAP SMEAR-EVERY 3 YRS,AGES 21-65 05/11/2016 05/11/2013, 03/01/2008, 10/19/2006, Additional history exists CKD PHOS USE SMARTSET 84288 12/29/201801/2018, 08/26/2009, 08/25/2009, Additional history exists DIABETES-HGBA1C EVERY 6 MONTHS 03/27/2019 09/27/2018, 05/01/2018, 12/29/2017, Additional history exists Yearly B-12 05/16/2019 05/16/2018 BREAST CANCER SCREENING DISCUSSION YEARLY AGES 40-75 06/23/2019 06/23/2018, 05/09/2015, 07/12/2014, Additional history exists CKD GFR USE SMARTSET 44625 08/28/201902/26, 01/12/2019, 12/23/2018, Additional history exists DIABETES-FOOT EXAM 01/02/2020 01/01/2019, 0 12/29/2017, 10/21/2016, Additional history exists CKD HGB USE SMARTSET 90631 02/27/202002/26, 12/23/2018, 12/08/2018, Additional history exists PNEUMOCOCCAL [...] encounter Visit Diagnoses Diagnosis HTN, goal below 140/80 Unspecified essential hypertension Acute diastolic congestive heart failure (HCC) Acute diastolic heart failure Body mass index (BMI) of 50.0 to 59.9 in adult (HCC) Hypoxemia ELISSA (obstructive sleep apnea) Obstructive sleep apnea (adult) (pediatric) HTN, goal below 130/80 Unspecified essential hypertension documented in this encounter Advance Directives Documents on File Type Date Recorded Patient Freight Conductor Expl anation Advanced Directive 08/22/2009 12:00 AM [...]
--- OUTSIDE RECORDS SUMMARY | 2023-06-01 05:49 | External Medical Summary | Summary of Care ---
Author Name Unknown Organization [place] [address] Care Team Providers Care Printing Estimator Name Role Phone Kevin Whiteside Primary Care [...] SOPNIndications:DM type 2, goal: symptom mgmt ([facility]) Inject 1.8 mg under the skin [...] to 59.9 in adult ([facility]),Hypoxemia,ELISSA (obstructive sleep apnea),HTN, goal below 130/80 Take 1 Tab by mouth daily. 31 Tab 5 9 Active Insulin Degludec (TRESIBA FLEXTOUCH) 200 UNIT/ML SOPN Inject up to 160 units subcutaneously once daily as directed 9 mL 5 9 Active DULoxetine (CYMBALTA) 60 MG CPEPIndications:Fib romyalgia,Moderate episode of recurrent major depressive disorder ([facility]),Primary osteoarthritis of both knees Take 1 [...] Tab 5 9 Active Vitamin D, Ergocalciferol, 65429 units CapsuleIndications: Vitamin D deficiency Take one capsule by mouth once a week 13 Cap 0 9 Active furosemide (LASIX) 80 MG Tablet Take 1 Tab by mouth 2 times a day. Med was increased during hospitalization 180 Tab 3 9 Active Blood Glucose Monitoring Suppl ([employer] ULTRA 2) w/Device KIT Use to test [...] Problems Problem Noted Date Other atherosclerosis of [place] arteries of extremities, left leg 02/26/2019 Impetigo [...] Specialty Care Team Description 03/05/2019 [facility] [address] [facility] [address] [place] [address] 03/07/2019 Office Visit Family Medicine Kevin Whiteside, [address] [address] [phone] 03/14/2019 [facility] [address] [place] [address] 03/14/2019 Office Visit Cardiology Rey Woodall MD [address] [address] [phone] 04/24/2019 Office Visit Sleep Disorders Celsa Tafoya CRNP [address] [place] [address] [phone] Health Maintenance Due Date Last Done Comments DIABETES-EYE EXAM 02/24/2011 02/24/2010 (Do ne elsewhere), 12/18/2009, 02/18/2008 (Done elsewhere) PAP SMEAR-EVERY 3 YRS,AGES 21-65 05/11/2016 05/11/2013, 03/01/2008, 10/19/2006, Additional history exists CKD PHOS USE SMARTSET 55557 12/29/2018 04/0 01/2018, 08/26/2009, 08/25/2009, Additional history exists DIABETES-HGBA1C EVERY 6 MONTHS 03/27/2019 09/27/2018, 05/01/2018, 12/29/2017, Additional history exists Yearly B-12 05/16/2019 05/16/2018 BREAST CANCER SCREENING DISCUSSION YEARLY AGES 40-75 06/23/2019 06/23/2018, 05/09/2015, 07/12/2014, Additional history exists CKD GFR USE SMARTSET 58668 08/28/201902/26, 01/12/2019, 12/23/2018, Additional history exists DIABETES-FOOT EXAM 01/02/2020 01/01/2019, 0 12/29/2017, 10/21/2016, Additional history exists CKD HGB USE SMARTSET 17921 02/27/202002/26, 12/23/2018, 12/08/2018, Additional history exists PNEUMOCOCCAL [...] File Type Date Recorded Patient Director Of Sales Expl anation Advanced Directive [...]
--- OUTSIDE RECORDS SUMMARY | 2023-06-01 05:49 | External Medical Summary | Summary of Care ---
Author Name Unknown Organization [place] [address] Care Team Providers Care City Editor Name Role Phone Kevin Whiteside Primary Care Provider Reason for Visit * Reason Comments case management UTC X 1 Encounter Details Date Type Department Care Team Description 03/12/2019 Telephone Care Coordination [address] [place], [place] [id number] Tiburcio Ness RN case management (UTC X 1) Allergies Active Allergy Reactions Severity Noted Date Comments Heparin 09/04/2009 Heparin Induced Thrombocytopenia Empagliflozin Other (Please comment) Medium 05/17/2018 3 yeast infections in 6 weeks after starting Morphine And Related 09/16/1997 Hallucinations Tetanus Toxoid Other (Please comment) 06/15/2011 Passed out documented as of this encounter (statuses as of 03/12/2019) Medications Medication Sig Dispensed Refills Start Date [...] Tab 5 01/12/2019 Active Vitamin D, Ergocalciferol, 14776 units CapsuleIndications: Vitamin D deficiency Take one capsule by mouth once a week 13 Cap 0 01/13/2019 Active Blood Glucose Monitoring Suppl ([employer] ULTRA 2) w/Device KIT Use to test [...] as of this encounter (statuses as of 03/12/2019) Active Problems Problem Noted Date Other atherosclerosis of [place] arteries of extremities, left leg 02/26/2019 [...] Overview: ICD-10 update of inactive term [place] filter in place 08/19/2014 History of pulmonary [...] as of this encounter (statuses as of 03/12/2019) Resolved Problems Problem Noted Date Resolved Date [...] as of this encounter (statuses as of 03/12/2019) Immunizations Name Administration Dates Next Due Pneumococcal [...] encounter Miscellaneous Notes * Telephone Encounter - Tiburcio Ness RN - 03/12/2019 3:21 PM EDT [facility] X 1 Message left on [employer] with contact information, requested a call back. documented in this encounter Plan of Treatment Upcoming Encounters Date Type Specialty Care Team Description 03/12/2019 Pharmacy Pharmacy [facility] [address] [place] [address] Uncontrolled type 2 diabetes mellitus with stage 3 chronic kidney disease, with long-term current use of insulin ([facility])*; Type 2 diabetes mellitus with hemoglobin A1c goal of 7.0%-8.0% ([facility]) 03/14/2019 Pharmacy Pharmacy [facility] [address] [place] [address] 03/14/2019 Office Visit Cardiology Rey Woodall MD [address] [place] [address] [phone] 03/20/2019 [facility] [address] [place] [address] 04/24/2019 Office Visit Sleep Disorders Celsa Tafoya CRNP [address] [place] [address] [phone] Health Maintenance Due Date Last Done Comments DIABETES-EYE EXAM 02/24/2011 02/24/2010 (Do ne elsewhere), 12/18/2009, 02/18/2008 (Done elsewhere) PAP SMEAR-EVERY 3 YRS,AGES 21-65 05/11/2016 05/11/2013, 03/01/2008, 10/19/2006, Additional history exists CKD PHOS USE SMARTSET 25016 12/29/2018 04/0 01/2018, 08/26/2009, 08/25/2009, Additional history exists DIABETES-HGBA1C EVERY 6 MONTHS 03/27/2019 09/27/2018, 05/01/2018, 12/29/2017, Additional history exists Yearly B-12 05/16/2019 05/16/2018 BREAST CANCER SCREENING DISCUSSION YEARLY AGES 40-75 06/23/2019 06/23/2018, 05/09/2015, 07/12/2014, Additional history exists CKD GFR USE SMARTSET 91717 08/28/201902/26, 01/12/2019, 12/23/2018, Additional history exists DIABETES-FOOT EXAM 01/02/2020 01/01/2019, 0 12/29/2017, 10/21/2016, Additional history exists CKD HGB USE SMARTSET 59464 02/27/202002/26, 12/23/2018, 12/08/2018, Additional history exists PNEUMOCOCCAL [...] on File Type Date Recorded Patient Academic Registrar Expl anation Advanced Directive 08/22/2009 12:00 AM [...]
--- OUTSIDE RECORDS SUMMARY | 2023-06-01 05:49 | External Medical Summary | Summary of Care ---
Author Name Unknown Organization [place] [address] Care Team Providers Care Cash Processor Name Role Phone Migue Whiteside DO Primary Care Provider Reason for Visit * Reason Comments Hospital Follow-Up fell at home and shaheed t to ER, low bp and o2 Hospital Follow-Up Encounter Details Date Type Department Care Team Description 03/07/2019 Office Visit [facility] [address] [place] [facility] [place] [address] Migue Whiteside DO [address] [facility] [place] [address] Chronic diastolic congestive [...] 5 01/13/20 19 Active Vitamin D, Ergocalciferol, 65854 units CapsuleIndications :Vitamin D deficiency Take one capsule by mouth once a week 13 Cap 0 01/14/20 19 Active Blood Glucose Monitoring Suppl ([employer] ULTRA 2) w/Device KIT Use to test [...] Problems Problem Noted Date Other atherosclerosis of [place] arteries of extremities, left leg 02/26/2019 Impetigo [...] street drugs, herbs, supplements, or even some pwln-nnv-xpuaasl medicines can be harmful. Talk to your [...] to get rid of medicine: Call your [facility] or [facility] government's household trash and recycling service and ask if a drug take-back program is available in your community. Call your local pharmacy and ask the right way to get rid of the medicine. Go to http://www.fda.gov/ForConsumers/ConsumerUpdates/qea786238 to learn how to get rid of [...] unless their doctor says otherwise. Vincenzo Mendoza, [address] [place] [address]. All rights reserved. This information is not [...] and pharmacist about all the prescription and fdjk-sjm-mcftkrp medicines you take.This includes vitamins and herbal remedies. Tell your doctor and pharmacist if you have any medical conditions or allergies to any medicine or food, or if you are or . Keep a list of all your medicines. Use the sample to the right as a guide for the type of information needed. [facility], [address] [place] [address]. All rights reserved. This information is not intended as a substitute for professional medical care. Always follow your healthcare professional's instructions. documented in this encounter Progress Notes * Migue Whiteside DO - 03/07/2019 1:27 PM EDT Nursing Notes: Izabela Crump, DOORMAKER 03/07/19 1323 Signed The patient has been [...] pulmonary embolus (PE) Z86.711 Statin intolerance Z78.[address] Z95.828 Type 2 diabetes [...] L01.00 Lumbar radiculopathy M54.16 Other atherosclerosis of [place] arteries of extremities, left leg ([facility] [...] normal, repeat 10 yrs/[facility] COLONOSCOPY, GI REFERRAL OP 01/28/06 diverticulosis--repeat 10 years INCISION OF [place], PLANNED 06/03/2011 TRACHEOSTOMY PLANNED performed by DANNY HOLDER at OR [facility] KNEE ARTHROSCOPY/DEBRIDEMENT 07/[address] PERMANENT GASTROSTOMY TUBE 09/06/09 GASTROSTOMY WITH CONSTUCTION GASTRIC TUBE performed by AMADOU NUNEZ at OR [facility] REMOVAL OF THYROID GLAND 06/15/2011 THYROIDECTOMY INCLUDING SUBSTERNAL THYROID CERVICAL APPROACH performed by DANNY HOLDER at OR [facility] REMOVE GALLBLADDER 09/06/09 CHOLECYSTECTOMY performed by AMADOU NUNEZ at OR [facility] REPAIR RECURRENT INCISIONAL HERNIA 1998 REVISION OF COLOSTOMY, SIMPLE 1998 SUTURE, LARGE INTESTINE W/COLOSTOMY 1996 perforation R colon with colostomy VENA CAVA FILTER/LIGATION/CLIP 08/19/09 Lee filter placement through the right femoral 08/19/[address] Lerma [address] [facility] Current Outpatient Medications Medication Sig Dispense [...] day. 30 mL 4 Vitamin D, Ergocalciferol, 99759 units Capsule Take one capsule by mouth [...] (Please comment) Passed out Migue Whiteside DO [facility] [address] [facility] [place] [address] (This note was completed using the dictation [...] Specialty Care Team Description 03/12/[address] [facility] [address] [facility] [place] [address] 03/14/[address] [facility] [address] [place] [address] 03/14/2019 Office Visit Cardiology Rey Woodall MD [address] [address] [phone] 04/24/2019 Office Visit Sleep Disorders Celsa Tafoya CRNP [address] [place] [address] [phone] Health Maintenance Due Date Last Done Comments DIABETES-EYE EXAM 02/24/2011 02/24/2010 (Do ne elsewhere), 12/18/2009, 02/18/2008 (Done elsewhere) PAP SMEAR-EVERY 3 YRS,AGES 21-65 05/11/2016 05/11/2013, 03/01/2008, 10/19/2006, Additional history exists CKD PHOS USE SMARTSET 01377 12/29/2018 04/0 01/2018, 08/26/2009, 08/25/2009, Additional history exists DIABETES-HGBA1C EVERY 6 MONTHS 03/27/2019 09/27/2018, 05/01/2018, 12/29/2017, Additional history exists Yearly B-12 05/16/2019 05/16/2018 BREAST CANCER SCREENING DISCUSSION YEARLY AGES 40-75 06/23/2019 06/23/2018, 05/09/2015, 07/12/2014, Additional history exists CKD GFR USE SMARTSET 16346 08/28/201902/26, 01/12/2019, 12/23/2018, Additional history exists DIABETES-FOOT EXAM 01/02/2020 01/01/2019, 0 12/29/2017, 10/21/2016, Additional history exists CKD HGB USE SMARTSET 34386 02/27/202002/26, 12/23/2018, 12/08/2018, Additional history exists PNEUMOCOCCAL [...] on File Type Date Recorded Patient Master Deputy Sheriff Court Security Expl anation Advanced Directive 08/22/2009 12:00 AM [...]
--- OUTSIDE RECORDS SUMMARY | 2023-06-01 05:49 | External Medical Summary | Summary of Care ---
Author Name Unknown Organization [place] [address] Care Team Providers Care Civil Drafter Name Role Phone Kevin Whiteside Primary Care Provider Reason for Visit * Reason Comments Advice Encounter Details Date Type Department Care Team Description 03/05/2019 Telephone Internal Medicine [address] [address] Frances Nicholson RN [address] [place] [address] Advice Allergies Active Allergy Reactions Severity [...] Tab 5 01/12/2019 Active Vitamin D, Ergocalciferol, 76008 units CapsuleIndications: Vitamin D deficiency Take one capsule by mouth once a week 13 Cap 0 01/13/2019 Active Blood Glucose Monitoring Suppl ([employer] ULTRA 2) w/Device KIT Use to test [...] MOUTH DAILY 90 Tab 4 03/05/2019 Active documented as of this encounter (statuses [...] 10/14/2014 Overview: ICD-10 update of inactive term [place] filter in place 08/19/2014 History of pulmonary [...] Telephone Encounter - Frances Nicholson RN - 03/05/2019 3:38 PM EDT Discharge summary notes indicate that Lasix was being decreased to 60 mg BID -according to of D/C meds, Lasix was decreased from 80 mg BID to 60 mg daily and pt to take an additional 20 mg if weight gainof 2 lbs or more in 24 hours Wanted you to be aware of discrepancy Pt taking 60 mg daily with 20 mg extra for 2 lbs weight gain Frances Nicholson, financial reporting specialist [phone] documented in this encounter Plan of Treatment Upcoming Encounters Date Type Specialty Care Team Description 03/12/[address] [facility] [address] [place] [address] 03/14/[address] [facility] [address] [address] 03/14/2019 Office Visit Cardiology Rey Woodall MD [address] [address] [phone] 04/24/2019 Office Visit Sleep Disorders Celsa Tafoya CRNP [address] [address] [phone] Health Maintenance Due Date Last Done Comments DIABETES-EYE EXAM 02/24/2011 02/24/2010 (Do ne elsewhere), 12/18/2009, 02/18/2008 (Done elsewhere) PAP SMEAR-EVERY 3 YRS,AGES 21-65 05/11/2016 05/11/2013, 03/01/2008, 10/19/2006, Additional history exists CKD PHOS USE SMARTSET 46985 12/29/2018 04/0 01/2018, 08/26/2009, 08/25/2009, Additional history exists DIABETES-HGBA1C EVERY 6 MONTHS 03/27/2019 09/27/2018, 05/01/2018, 12/29/2017, Additional history exists Yearly B-12 05/16/2019 05/16/2018 BREAST CANCER SCREENING DISCUSSION YEARLY AGES 40-75 06/23/2019 06/23/2018, 05/09/2015, 07/12/2014, Additional history exists CKD GFR USE SMARTSET 66787 08/28/201902/26, 01/12/2019, 12/23/2018, Additional history exists DIABETES-FOOT EXAM 01/02/2020 01/01/2019, 0 12/29/2017, 10/21/2016, Additional history exists CKD HGB USE SMARTSET 39851 02/27/202002/26, 12/23/2018, 12/08/2018, Additional history exists PNEUMOCOCCAL [...] Documents on File Type Date Recorded Patient Tapping Machine Operator Automatic Expl anation Advanced Directive 08/22/2009 12:00 AM [...]
--- OUTSIDE RECORDS SUMMARY | 2023-06-01 05:49 | External Medical Summary | Summary of Care ---
Author Name Unknown Organization [place] [address] Care Team Providers Care Head Insulation Board Saw Operator Name Role Phone Kevin Whiteside Primary Care Provider Reason for Visit * Reason Comments Dosage Adjustment Via Phone (anticoag Cl inic) Diabetes Follow-Up Encounter Details Date Type Department Care Team Description 03/12/2019 Pharmacy Pharmacy, [facility] [address] [facility] [place] [address] [facility] [address] [facility] [place] [address] Uncontrolled type 2 diabetes mellitus with stage 3 chronic kidney disease, with long-term current use of insulin ([facility])*; Type 2 diabetes mellitus with hemoglobin A1c goal of 7.0%-8.0% ([facility]) Allergies Active Allergy Reactions Severity Noted Date [...] Tab 5 01/12/2019 Active Vitamin D, Ergocalciferol, 15818 units CapsuleIndications: Vitamin D deficiency Take one capsule by mouth once a week 13 Cap 0 01/13/2019 Active Blood Glucose Monitoring Suppl ([employer] ULTRA 2) w/Device KIT Use to [...] Problems Problem Noted Date Other atherosclerosis of [place] arteries of extremities, left leg 02/26/2019 Impetigo [...] Progress Notes * Rose Barton RPh - 03/12/2019 8:51 AM EDT Sent message to [employer] regarding follow up for shipping of medtronic pump. Follow up in 1 week for status update. Rose Barton, Pharm D Clinical Pharmacist 03/12/2019, 8:51 AM documented in this encounter Plan of Treatment Upcoming Encounters Date Type Specialty Care Team Description 03/14/2019 Pharmacy [facility]acy [facility] [place] [address] [place] [address] 03/14/2019 Office Visit Cardiology Rey Woodall MD [address] [place] [address] [phone] 03/20/2019 Pharmacy [facility] [place] [address] [place] [address] 04/24/2019 Office Visit Sleep Disorders Celsa Tafoya CRNP [address] [place] [address] [phone] Health Maintenance Due Date Last Done Comments DIABETES-EYE EXAM 02/24/2011 02/24/2010 (Do ne elsewhere), 12/18/2009, 02/18/2008 (Done elsewhere) PAP SMEAR-EVERY 3 YRS,AGES 21-65 05/11/2016 05/11/2013, 03/01/2008, 10/19/2006, Additional history exists CKD PHOS USE SMARTSET 13111 12/29/[address] 01/2018, 08/26/2009, 08/25/2009, Additional history exists DIABETES-HGBA1C EVERY 6 MONTHS 03/27/2019 09/27/2018, 05/01/2018, 12/29/2017, Additional history exists Yearly B-12 05/16/2019 05/16/2018 BREAST CANCER SCREENING DISCUSSION YEARLY AGES 40-75 06/23/2019 06/23/2018, 05/09/2015, 07/12/2014, Additional history exists CKD GFR USE SMARTSET 60047 08/28/201902/26, 01/12/2019, 12/23/2018, Additional history exists DIABETES-FOOT EXAM 01/02/2020 01/01/2019, 0 12/29/2017, 10/21/2016, Additional history exists CKD HGB USE SMARTSET 28761 02/27/202002/26, 12/23/2018, 12/08/2018, Additional history exists PNEUMOCOCCAL [...] Documents on File Type Date Recorded Patient Property Management Accountant Expl anation Advanced Directive 08/22/2009 12:00 AM [...]
--- OUTSIDE RECORDS SUMMARY | 2023-06-01 05:49 | External Medical Summary | Summary of Care ---
Author Name Unknown Organization [place] [address] Care Team Providers Care Personal Carer Name Role Phone Kevin Whiteside Primary Care Provider Encounter Details Date Type Department Care Team Description 03/05/2019 Flight Information Exped[facility]asketball [facility] [address] [address] Frances Nicholson RN 132 [place] [address] Hypoxia*; Personal history of fall; Chronic diastolic congestive heart failure (HCC); Uncontrolled [...] TWICE DAILY 180 Tab 3 8 Active Insulin Degludec (TRESIBA FLEXTOUCH) 200 UNIT/ML [...] Tab 5 9 Active Vitamin D, Ergocalciferol, 03589 units CapsuleIndications: Vitamin D deficiency Take one capsule by mouth once a week 13 Cap 0 9 Active furosemide (LASIX) 80 MG Tablet Take 1 Tab by mouth 2 times a day. Med was increased during hospitalization 180 Tab 3 9 Active Blood Glucose Monitoring Suppl ([employer] ULTRA 2) w/Device KIT Use to test [...] Problems Problem Noted Date Other atherosclerosis of [place] arteries of extremities, left leg 02/26/2019 Impetigo [...] 10/14/2014 Overview: ICD-10 update of inactive term [place] filter in place 08/19/2014 History of pulmonary [...] Progress Notes * Frances Nicholson RN - 03/05/2019 12:59 PM EDT PMH: DM, HTN, SOA with CPAP, history of PE, zoraida filter in place, dyslipidemia-statin intol, GERD, Fibromyalgia, depression/anxiety New-acute diastolic HF and ELSIE sent from PCP office abnormal labs and shortness of breath. x-ray concerning for atypical pneumonia 06/06/18-[facility] admit Acute respiratory failure with hypoxia [...] weight 343 on d/c 06/10/18 d/c from [facility] new on Lasix, potassium and Mg Stopped Metformin and HCTZ 12/08 [facility] admit acute decompensated diastolic HF Consulted Cardiology and nephrology 12/14/18 D/c to home Added Spirolactone Increased Lasix to 80 mg BID (4-6 hours apart) Weekly BMP x 4 weights and home BP cuff D/c weight 351.2 12/18-Dr Whiteside 01/12-cards 01/24-neph 12/23 [facility] admit with Nausea, abd pain, intermittent fever (afebrile in EE), headaches, diffuse body aches. Creat elevated 2.52 on admit UTI- for klebselli 12/27-d/c to home 10 days of Omnicef for UTI 2nd set of blood cultures neg d/c weight 157.8 Kg (D/C weight last admit was 159.3) 01/01-Dr Whiteside 01/11-sleep med-but had to alcel sleep study due to hosp 01/12-cards 02/28-[facility] admit for fall-slipped, couldn't get up Fall: Fell after legs slid on the floor Possible related to orthostatic vs mechanical fall Xray hip showed no fracture or dislocation within the pelvis or hips. Xray of knees showed No fractures within the right or left knee. -[id number] 03/04 D/C form [facility] Requip 2 mg HS Lasix decreased to 60 mg, but if weight increases by more than 2 lbs, needs to take extra 20 mg of Lasix Needs BMP in 1 week O2 at HS and with ambulation 03/05-Dr Whiteside Case Management Assessment/ROSA Is this call for a hospital, fci or rehab facility discharge to home? Yes 03/04/19 D/C from [facility] S: Reports:reports that she has to use O2 when moving around as well as at bedtime. O2 company was in today and instructed on use of portable. Aware of Lasix being decreased to 60 mg daily from 80 BID. Aware of need for daily weights and to take an extra 20 mg if weight gain of 2 lbs or more in 24 hours. Did not weigh self today. Reports hosp d/c weigh of 347 (157.6 kg). Continues to be in the process of moving. Has [facility] scale, but weights not coming thru. Aware of PCP and cardiology appts. MTM working to obtain Insulin pump. Weight gain: did not weigh self today Increased edema: denies Chest pain denies Increased shortness of breath: cough denies dyspnea with daily activities oxygen to wear O2 with activity and HS with C-PAP conserving device (C-PAP / BiPAP) Chills / Sweats / Fever: denies chills/sweats and denies fever Fall: reports 3 falls-poss related to hypotension/hypoxia Appetite: denies nausea, vomiting, burning, decreased appetite Bowel: denies problems Bladder: denies problems Medications: Lasix decreased from 80 mg BID to 60 mg daily-may take an extra 20 mg daily for wt gain of 2 lbs or more in 24 hours-Pt instructed to call CM if weight gain and need for extra Lasix Chronic Pain: ongoing chronic pain from neuropathy/fibromyalgia O: Phone visit for ROSA 03/04/19 D/C from [facility]. Medications: Lasix reduced to 60 mg daily from 80 mg BID and takes all medications as prescribed. A: Patient Centered Prioritized Goals: Pt will [...] to communicate, understand instructions, process information. P: Flight Information Expediter Interventions: instructed pt that she needs to be weighing on [facility] scale-weights have not been coming thru and [facility] has contacted pt about home visit to check out scale. Pt asking for [facility] visit to wait until after she moves later this months Reinforce Self Management Action Plan established at [...] Instructed to restrict fluids to 2 qts/day Reinforced safety education / fall prevention PCP Notified of enrollment in CM/HM program: Yes SNP Member? No Re-evaluation of plan of care and progress towards goals achievement:aware of appts. Aware to take extra 20 mg of Lasix for weight gain of 2lbs in 24 hours and also instructed to call CM with weigh gain as [facility] scale not transmitting Plan to call patient again this week to reassess and update plan of care, instructed to call Flight Information Expediter or Primary Care Provider with change in symptoms or as needed before next follow-up, verbalizes understanding and agrees with plan. Frances Nicholson RN Outpatient Flight Information Expediter documented in this encounter Plan of Treatment Upcoming Encounters Date Type Specialty Care Team Description 03/05/2019 Pharmacy Pharmacy [facility] [address] [place] [address] Uncontrolled type 2 diabetes mellitus with stage 3 chronic kidney disease, with long-term current use of insulin ([facility]; Type 2 diabetes mellitus with hemoglobin A1c goal of 7.0%-8.0% ([facility]) 03/07/2019 Office Visit Family Medicine Kevin Whiteside DO [address] [place] [address] [phone] 03/12/2019 Pharmacy Pharmacy [facility] [address] [place] [address] 03/14/2019 Pharmacy [facility] [address] [place] [address] 03/14/2019 Office Visit Cardiology Rey Woodall MD [address] [place] [address] [phone] 04/24/2019 Office Visit Sleep Disorders Celsa Tafoya CRNP [address] [place] [address] [phone] Health Maintenance Due Date Last Done Comments DIABETES-EYE EXAM 02/24/2011 02/24/2010 (Do ne elsewhere), 12/18/2009, 02/18/2008 (Done elsewhere) PAP SMEAR-EVERY 3 YRS,AGES 21-65 05/11/2016 05/11/2013, 03/01/2008, 10/19/2006, Additional history exists CKD PHOS USE SMARTSET 50844 12/29/2018 04/0 01/2018, 08/26/2009, 08/25/2009, Additional history exists DIABETES-HGBA1C EVERY 6 MONTHS 03/27/2019 09/27/2018, 05/01/2018, 12/29/2017, Additional history exists Yearly B-12 05/16/2019 05/16/2018 BREAST CANCER SCREENING DISCUSSION YEARLY AGES 40-75 06/23/2019 06/23/2018, 05/09/2015, 07/12/2014, Additional history exists CKD GFR USE SMARTSET 45671 08/28/201902/26, 01/12/2019, 12/23/2018, Additional history exists DIABETES-FOOT EXAM 01/02/2020 01/01/2019, 0 12/29/2017, 10/21/2016, Additional history exists CKD HGB USE SMARTSET 44050 02/27/202002/26, 12/23/2018, 12/08/2018, Additional history exists PNEUMOCOCCAL [...] as of this encounter Visit Diagnoses Diagnosis Hypoxia- Primary Hypoxemia Personal history of fall Chronic diastolic congestive heart failure (HCC) Chronic diastolic heart failure Uncontrolled type 2 diabetes mellitus with stage 3 chronic kidney disease, with long-term current use of insulin (HCC) documented in this encounter Advance Directives Documents on File Type Date Recorded Patient Manager Leasing Expl anation Advanced Directive 08/22/2009 12:00 AM [...]
--- OUTSIDE RECORDS SUMMARY | 2023-06-01 05:50 | External Medical Summary | Summary of Care ---
Author Name Unknown Organization [place] [address] Care Team Providers Care Surgical Nurse Practitioner Name Role Phone Kevin Whiteside Primary Care Provider Reason for Visit * Reason Comments Dosage Adjustment In Person (Anticoag Cl inic) Diabetes Follow-Up Encounter Details Date Type Department Care Team Description 02/26/2019 Pharmacy Pharmacy, [facility] [address] [facility] [address] [facility] [address] Uncontrolled type 2 diabetes mellitus with stage 3 chronic kidney disease, with long-term current use of insulin ([facility])*; Type 2 diabetes mellitus with hemoglobin A1c goal of 7.0%-8.0% ([facility]) Allergies Active Allergy Reactions Severity Noted Date Comments Heparin 09/04/2009 Heparin Induced Thrombocytopenia Empagliflozin Other (Please comment) Medium 05/17/2018 3 yeast infections in 6 weeks after starting Morphine And Related 09/16/1997 Hallucinations Tetanus Toxoid Other (Please comment) 06/15/2011 Passed out documented as of this encounter (statuses as of 02/26/2019) Medications Medication Sig Dispensed Refills Start Date [...] DAILY 180 Tab 3 09/11/20 18 Active lisinopril (PRINIVIL) 2.5 MG TabletIndications: HTN, goal below 140/80,Acute diastolic congestive heart failure (HCC),Body mass index (BMI) of 50.0 to 59.9 in adult (HCC),Hypoxemia,OS A (obstructive sleep apnea),HTN, goal below 130/80 Take 1 Tab by mouth daily. 31 Tab 5 11/02/19 19 Active Insulin Degludec (TRESIBA FLEXTOUCH) 200 [...] 5 01/13/20 19 Active Vitamin D, Ergocalciferol, 58807 units CapsuleIndications :Vitamin D deficiency Take one capsule by mouth once a week 13 Cap 0 01/14/20 19 Active furosemide (LASIX) 80 MG Tablet Take 1 Tab by mouth 2 times a day. Med was increased during hospitalization 180 Tab 3 01/27/20 19 Active Blood Glucose Monitoring Suppl (yWorldUCH ULTRA 2) w/Device KIT Use to test [...] Box Dosing Unit 11 02/27/20 19 Active Insulin Pen Needle (BD PEN NEEDLE SHORT U/F) 31G X 8 MM Use 5 times daily with insulin 200 Box Dosing Unit 11 08/01/20 18 019 Discontinued documented as of this encounter (statuses as of 02/26/2019) Active Problems Problem Noted Date Other atherosclerosis of [place] arteries of extremities, left leg 02/26/2019 [...] as of this encounter (statuses as of 02/26/2019) Resolved Problems Problem Noted Date Resolved Date [...] as of this encounter (statuses as of 02/26/2019) Immunizations Name Administration Dates Next Due Pneumococcal [...] this encounter Progress Notes * Rose Barton, [facility] - 02/26/2019 10:04 AM EDT Medication Therapy Disease Management Diabetes Interval History: Stephanie Camp is an 63 year old year old female returning to the [facility] Management [facility] for a diabetes follow-up appointment. Blood glucose control since last visit: worse Intolerance: no Medication compliance: yes Hospitalization or ED Utilization since last visit: no Hypoglycemia requiring assistance since last visit: no Symptoms of hyperglycemia or hypoglycemia present today: no Det: uncahnged Exercise: none Current Diabetes Medications: Tresiba 160 units daily Victoza 1.8 mg daily Increase Novolog 25 units with breakfast, 18 units lunch, 28 units at dinner + CF 1:18 over 120 at meals and bedtime Self-Monitoring Blood Glucose Review: Patient currently tests blood glucose 4 time(s) daily Pre am Post am Pre Lunch Post Lunch Pre pm Post pm HS 322 386 395 321 315 270 375 305 347 363 280 260 Average 335 #DIV/0! 350 #DIV/0! 313 #DIV/0! 307 Hi 386 0 395 0 321 0 347 Lo 270 0 280 [address] 342[address]5 0 375 0 #DIV/0! 0 315 Range 116 0 115 0 16 0 87 Hypoglycemia: 1. Do you know what the [...] Cardiac Dyslipidemia Chronic diastolic congestive heart failure ([facility]) Mental Health ELLIE (generalized anxiety disorder) Mild episode of recurrent major depressive disorder ([facility]) Endocrine Postsurgical hypothyroidism Type 2 diabetes mellitus with hemoglobin A1c goal of 7.0%-8.0% ([facility]) Uncontrolled type 2 diabetes mellitus with stage 3 chronic kidney disease, with long-term current use of insulin ([facility]) Pulmonary Nocturnal hypoxemia ELISSA (obstructive sleep apnea) History of pulmonary embolus (PE) Vascular Venous insufficiency [place] filter in place Nephrology HTN, goal below 130/80 General Statin intolerance Abnormality of gait Controlled substance agreement signed Neurology Restless legs syndrome Gastrointestinal Gastroesophageal reflux disease with esophagitis Body mass index (BMI) of 50.0 to 59.9 in adult ([facility]) Dermatology Impetigo OTHER Other atherosclerosis of [place] arteries of extremities, left leg ([facility]) Review of patient's allergies indicates: Allergen Reactions Jardiance [Empagliflozin] Other (Please comment) 3 yeast infections in 6 weeks after starting Heparin Heparin Induced Thrombocytopenia Morphine And Related Hallucinations Tetanus Toxoid Other (Please comment) Passed out Current Outpatient Medications Medication Sig Dispense Refill rOPINIRole (REQUIP) 2 MG Tablet Take 1 Tab by mouth 3 times a day. 90 Tab 3 clobetasol propionate (TEMOVATE) 0.05 [...] to test BG values 1 Kit 0 furosemide (LASIX) 80 MG Tablet Take 1 Tab by mouth 2 times a day. Med was increased during hospitalization 180 Tab 3 insulin aspart (NOVOLOG FLEXPEN) 100 UNIT/ML SOPN inject 25 units with breakfast, 20 units with lunch and 30 units with dinner plus sliding scale up to 150 units per day. 30 mL 4 Vitamin D, Ergocalciferol, 09247 units Capsule Take one capsule by mouth [...] once daily as directed 9 mL 5 lisinopril (PRINIVIL) 2.5 MG Tablet Take 1 Tab by mouth daily. 31 Tab 5 clonazePAM (KLONOPIN) 0.5 MG Tablet [...] sugars 3-4 times daily 360 Strip 5 Insulin Pen Needle (BD PEN NEEDLE SHORT U/F) 31G X 8 MM Use 5 times daily with insulin 200 Box Dosing Unit 11 levothyroxine (LEVOXYL) 200 MCG Tablet TAKE ONE [...] all periods of sleep. 1 Each 0 PRILOSEC 20 MG PO CPDR one tablet daily Objective: The ASCVD Risk score (Freddy JOHNS Jr., et al., 2013) failed to calculate for the following reasons: The patient has a prior SD or stroke diagnosis Estimated body mass index is 57.24 kg/m as calculated from the following: Height as of 01/23/19: 1.651 m (5' 5"). Weight as of an earlier encounter on 02/26/19: 156 kg (344 lb). BP Readings from Last 3 Encounters: 02/26/19 146/68 02/13/19 126/60 01/23/19 114/70 No POC components found HEMOGLOBIN, A1C(%) Nessa [...] but not at goal. Patient agreeable to adjust medications as noted below. Patient's BG values are elevated. Recommending to increase correction factor at this time. Also recommending to try an insulin pump due to high amount of insulin required without controlled BG values. Patient agreed to insulin pump trial after pump demo provided. Will send information to [email or web address]. Patient is agreeable to SMBG 4 time(s) daily. Patient aware to contact clinic if any hypoglycemia before next visit. Reviewed rule of 15s. Diabetes Medications: Tresiba 160 units daily Victoza 1.8 mg daily Increase Novolog 25 units with breakfast, 18 units lunch, 28 units at dinner + CF 1:10 over 120 at meals and bedtime Diabetes Health Maintenance: up to date Return to clinic: 3 week(s) Next Office Visit: 03/14/2019 [facility] Clinical Pharmacist Medication Therapy Disease Management 02/26/2019, 10:05 AM documented in this encounter Plan of Treatment Upcoming Encounters Date Type Specialty Care Team Description 02/28/2019 Office Visit Gynecology Obstetrics Alvina Hi CNM [address] [place] [address] [place] [address] [phone] 03/05/2019 Pharmacy Pharmacy [facility] [address] [place] [address] 03/14/2019 Pharmacy Pharmacy [facility] [place] [address] 03/14/2019 Office Visit Cardiology Rey Woodall MD [address] [place] [address] [phone] 04/24/2019 Office Visit Sleep Disorders Celsa Tafoya CRNP [address] [place] [address] [phone] Health Maintenance Due Date Last Done Comments DIABETES-EYE EXAM 02/24/2011 02/24/2010 (Do ne elsewhere), 12/18/2009, 02/18/2008 (Done elsewhere) PAP SMEAR-EVERY 3 YRS,AGES 21-65 05/11/2016 05/11/2013, 03/01/2008, 10/19/2006, Additional history exists CKD PHOS USE SMARTSET 73335 12/29/2018 04/0 01/2018, 08/26/2009, 08/25/2009, Additional history exists DIABETES-HGBA1C EVERY 6 MONTHS 03/27/2019 09/27/2018, 05/01/2018, 12/29/2017, Additional history exists Yearly B-12 05/16/2019 05/16/2018 BREAST CANCER SCREENING DISCUSSION YEARLY AGES 40-75 06/23/2019 06/23/2018, 05/09/2015, 07/12/2014, Additional history exists CKD GFR USE SMARTSET 42693 07/14/201901/12, 12/23/2018, 12/18/2018, Additional history exists CKD HGB USE SMARTSET 55819 12/24/201912/23, 12/08/2018, 06/06/2018, Additional history exists DIABETES-FOOT EXAM 01/02/2020 01/01/2019, 0 12/29/2017, 10/21/2016, Additional history exists PNEUMOCOCCAL 19-64 MEDIUM RISK [...] on File Type Date Recorded Patient Advertising Account 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 Expl anation Advanced Directive 08/22/2009 12:00 [...]
--- OUTSIDE RECORDS SUMMARY | 2023-06-01 05:50 | External Medical Summary | Summary of Care ---
Author Name Unknown Organization [place] [address] Care Team Providers Care Upholstery Tech Name Role Phone Kevin Whiteside Primary Care Provider Reason for Visit * Reason Comments Dosage Adjustment In Person (Anticoag Cl inic) Diabetes Follow-Up Encounter Details Date Type Department Care Team Description 02/26/2019 Pharmacy Pharm[facility] [address] [facility] [address] Uncontrolled type 2 diabetes mellitus with stage 3 chronic kidney disease, with long-term current use of insulin ([facility])*; Type 2 diabetes mellitus with hemoglobin A1c goal of 7.0%-8.0% ([facility]) Allergies Active Allergy Reactions Severity Noted [...] 5 01/13/20 19 Active Vitamin D, Ergocalciferol, 20341 units CapsuleIndications :Vitamin D deficiency Take one capsule by mouth once a week 13 Cap 0 01/14/20 19 Active furosemide (LASIX) 80 MG Tablet Take 1 Tab by mouth 2 times a day. Med was increased during hospitalization 180 Tab 3 01/27/20 19 Active Blood Glucose Monitoring Suppl (CoursmosUCH ULTRA 2) w/Device KIT Use to test [...] Problems Problem Noted Date Other atherosclerosis of [place] arteries of extremities, left leg 02/26/2019 Impetigo [...] this encounter Progress Notes * Rose Barton, [facility] - 02/26/2019 10:04 AM EDT Medication Therapy [...] Cardiac Dyslipidemia Chronic diastolic congestive heart failure ([facility]) Mental Health ELLIE (generalized anxiety disorder) Mild episode of recurrent major depressive disorder ([facility]) Endocrine Postsurgical hypothyroidism Type 2 diabetes mellitus with hemoglobin A1c goal of 7.0%-8.0% ([facility]) Uncontrolled type 2 diabetes mellitus with stage 3 chronic kidney disease, with long-term current use of insulin ([facility]) Pulmonary Nocturnal hypoxemia ELISSA (obstructive sleep apnea) History of pulmonary embolus (PE) Vascular Venous insufficiency [place] filter in place Nephrology HTN, goal below 130/80 General Statin intolerance Abnormality of gait Controlled substance agreement signed Neurology Restless legs syndrome Gastrointestinal Gastroesophageal reflux disease with esophagitis Body mass index (BMI) of 50.0 to 59.9 in adult ([facility]) Dermatology Impetigo OTHER Other atherosclerosis of [place] arteries of extremities, left leg ([facility]) Review of patient's allergies indicates: Allergen Reactions [...] day. 30 mL 4 Vitamin D, Ergocalciferol, 51642 units Capsule Take one capsule by mouth [...] following reasons: The patient has a prior [place] or stroke diagnosis Estimated body mass index [...] pump demo provided. Will send information to [employer]. Patient is agreeable to SMBG 4 time(s) [...] week(s) Next Office Visit: 03/14/2019 [facility] Clinical Pharmacist Medication Therapy Disease Management 02/26/2019, 10:05 AM documented in this encounter Plan of Treatment Upcoming Encounters Date Type Specialty Care Team Description 02/28/2019 Office Visit Gynecology Obstetrics Alvina Hi CNM [address] [place] [address] [place] [address] [phone] 03/05/2019 Pharmacy Pharmacy [facility] [address] [place] [address] 03/14/2019 [facility]acy [facility] [place] [address] 03/14/2019 Office Visit Cardiology Rey Woodall MD [address] [place] [address] [phone] 04/24/2019 Office Visit Sleep Disorders Celsa Tafoya CRNP [address] [place] [address] [phone] Health Maintenance Due Date Last Done Comments DIABETES-EYE EXAM 02/24/2011 02/24/2010 (Do ne elsewhere), 12/18/2009, 02/18/2008 (Done elsewhere) PAP SMEAR-EVERY 3 YRS,AGES 21-65 05/11/2016 05/11/2013, 03/01/2008, 10/19/2006, Additional history exists CKD PHOS USE SMARTSET 50331 12/29/2018 04/0 01/2018, 08/26/2009, 08/25/2009, Additional history exists DIABETES-HGBA1C EVERY 6 MONTHS 03/27/2019 09/27/2018, 05/01/2018, 12/29/2017, Additional history exists Yearly B-12 05/16/2019 05/16/2018 BREAST CANCER SCREENING DISCUSSION YEARLY AGES 40-75 06/23/2019 06/23/2018, 05/09/2015, 07/12/2014, Additional history exists CKD GFR USE SMARTSET 62567 07/14/201901/12, 12/23/2018, 12/18/2018, Additional history exists CKD HGB USE SMARTSET 51871 12/24/201912/23, 12/08/2018, 06/06/2018, Additional history exists DIABETES-FOOT [...] Documents on File Type Date Recorded Patient Ethanol Operations Manager Expl anation Advanced Directive 08/22/2009 12:00 [...]
--- OUTSIDE RECORDS SUMMARY | 2023-06-01 05:50 | External Medical Summary | Summary of Care ---
Author Name Unknown Organization [place] [address] Care Team Providers Care Automatic Drill Operator Name Role Phone Kevni Whiteside Primary Care Provider Reason for Visit * Reason Comments Advice Encounter Details Date Type Department Care Team Description 02/22/2019 Telephone Internal Medicine [address] [address] Frances Nicholson, RN [address] [place] [address] Advice Allergies Active Allergy Reactions [...] 5 01/13/20 19 Active Vitamin D, Ergocalciferol, 79042 units CapsuleIndications :Vitamin D deficiency Take one capsule by mouth once a week 13 Cap 0 01/14/20 19 Active furosemide (LASIX) 80 MG Tablet Take 1 Tab by mouth 2 times a day. Med was increased during hospitalization 180 Tab 3 01/27/20 19 Active Blood Glucose Monitoring Suppl ([employer] ULTRA 2) w/Device KIT Use to test BG values 1 Kit 0 01/27/20 Active insulin aspart (NOVOLOG FLEXPEN) 100 UNIT/ML [...] Problems Problem Noted Date Other atherosclerosis of [place] arteries of extremities, left leg 02/26/2019 Impetigo [...] Telephone Encounter - Frances Nicholson RN - 02/22/2019 2:06 PM EDT Call from pt -she is reporting that BS has been running in the 300s for approx 2 weeks Reports that BS this AM was 383 and currently is 418 Reports that she is taking Tresibe 140 units/day Along with Novolog with meals Reports that she took 39 units of Novolog with breakfast Has not taken lunchtime Novolg Advised to take lunchtime Novolog and plan lunch-low carbs, foods with protein such as salad with chicken Will notify [facility] aware and contacted pt and scheduled sooner appt Frances Nicholson RN, [facility] Burr Bench Hand [phone] documented in this encounter Plan of Treatment Upcoming Encounters Date Type Specialty Care Team Description 02/26/2019 Pharmacy Pharmacy [place], [facility] [address] [place] [address] Uncontrolled type 2 diabetes mellitus with stage 3 chronic kidney disease, with long-term current use of insulin (HCC)*; Type 2 diabetes mellitus with hemoglobin A1c goal of 7.0%-8.0% ([facility]) 02/28/2019 Office Visit Gynecology Obstetrics Alvina Hi, [facility] [address] [place] [address] [phone] 03/14/2019 Pharmacy Pharmacy [facility] [address] [place] [address] 03/14/2019 Office Visit Cardiology Rey Woodall MD [address] [place] [address] [phone] 04/24/2019 Office Visit Sleep Disorders Celsa Tafoya CRNP [address] [place] [address] [phone] Health Maintenance Due Date Last Done Comments DIABETES-EYE EXAM 02/24/2011 02/24/2010 (Do ne elsewhere), 12/18/2009, 02/18/2008 (Done elsewhere) PAP SMEAR-EVERY 3 YRS,AGES 21-65 05/11/2016 05/11/2013, 03/01/2008, 10/19/2006, Additional history exists CKD PHOS USE SMARTSET 08871 12/29/2018 04/0 01/2018, 08/26/2009, 08/25/2009, Additional history exists DIABETES-HGBA1C EVERY 6 MONTHS 03/27/2019 09/27/2018, 05/01/2018, 12/29/2017, Additional history exists Yearly B-12 05/16/2019 05/16/2018 BREAST CANCER SCREENING DISCUSSION YEARLY AGES 40-75 06/23/2019 06/23/2018, 05/09/2015, 07/12/2014, Additional history exists CKD GFR USE SMARTSET 28538 07/14/201901/12, 12/23/2018, 12/18/2018, Additional history exists CKD HGB USE SMARTSET 84132 12/24/201912/23, 12/08/2018, 06/06/2018, Additional history exists DIABETES-FOOT [...] on File Type Date Recorded Patient Manager Simulation Expl anation Advanced Directive 08/22/2009 12:00 AM [...]
--- OUTSIDE RECORDS SUMMARY | 2023-06-01 05:50 | External Medical Summary | Summary of Care ---
Author Name Unknown Organization [place] [address] Care Team Providers Care Payroll Master Name Role Phone Kevin Whiteside DO Primary Care Provider Encounter Details Date Type Department Care Team Description 02/27/2019 Orders Only Family Practice [facility] [address] [place] [address] Kevin [facility]ide DO [address] [facility] [place] [address] Allergies Active Allergy Reactions Severity Noted Date Comments Heparin 09/04/2009 Heparin Induced Thrombocytopenia Empagliflozin Other (Please comment) Medium 05/17/2018 3 yeast infections in 6 weeks after starting Morphine And Related 09/16/1997 Hallucinations Tetanus Toxoid Other (Please comment) 06/15/2011 Passed out documented as of this encounter (statuses as of 02/27/2019) Medications Medication Sig Dispensed Refills Start Date [...] Tab 5 9 Active Vitamin D, Ergocalciferol, 84328 units CapsuleIndications: Vitamin D deficiency Take one capsule by mouth once a week 13 Cap 0 9 Active furosemide (LASIX) 80 MG Tablet Take 1 Tab by mouth 2 times a day. Med was increased during hospitalization 180 Tab 3 9 Active Blood Glucose Monitoring Suppl ([employer] ULTRA 2) w/Device KIT Use to test [...] as of this encounter (statuses as of 02/27/2019) Active Problems Problem Noted Date Other atherosclerosis [...] Overview: ICD-10 update of inactive term [place] filter in place 08/19/2014 History of pulmonary [...] as of this encounter (statuses as of 02/27/2019) Resolved Problems Problem Noted Date Resolved Date [...] as of this encounter (statuses as of 02/27/2019) Immunizations Name Administration Dates Next Due Pneumococcal [...] Office Visit Gynecology Obstetrics Alvina Hi CNM [address] [place] [address] [place] [address] [phone] 03/05/2019 Pharmacy Pharmacy [facility] [address] [facility] [place] [address] 03/14/2019 Pharmacy Pharmacy [facility] [address] [facility] [place] [address] 03/14/2019 Office Visit Cardiology Rey Woodall MD [address] [place] [address] [phone] 04/24/2019 Office Visit Sleep Disorders Celsa Tafoya CRNP [address] [place] [address] [phone] Health Maintenance Due Date Last Done Comments DIABETES-EYE EXAM 02/24/2011 02/24/2010 (Do ne elsewhere), 12/18/2009, 02/18/2008 (Done elsewhere) PAP SMEAR-EVERY 3 YRS,AGES 21-65 05/11/2016 05/11/2013, 03/01/2008, 10/19/2006, Additional history exists CKD PHOS USE SMARTSET 10410 12/29/2018 04/0 01/2018, 08/26/2009, 08/25/2009, Additional history exists DIABETES-HGBA1C EVERY 6 MONTHS 03/27/2019 09/27/2018, 05/01/2018, 12/29/2017, Additional history exists Yearly B-12 05/16/2019 05/16/2018 BREAST CANCER SCREENING DISCUSSION YEARLY AGES 40-75 06/23/2019 06/23/2018, 05/09/2015, 07/12/2014, Additional history exists CKD GFR USE SMARTSET 23360 07/14/201901/12, 12/23/2018, 12/18/2018, Additional history exists CKD HGB USE SMARTSET 12212 12/24/201912/23, 12/08/2018, 06/06/2018, Additional history exists DIABETES-FOOT [...] Priority Date/Time Associated Diagnosis Comments CHEMISTRY-OUTSIDE Routine 02/26/2019 TSH Routine 02/26/2019 documented in this encounter Results * TSH (02/26/2019) TSH - OUTSIDE LAB 1.960 0.300 - 4.500 UIU/ML OUTSIDE LAB (SEE SCANNED REPORT) Specimen Narrative Performed At Performing Organization Address City/State/Zipcod e Phone Number OUTSIDE LAB (SEE SCANNED REPORT) * CHEMISTRY-OUTSIDE (02/26/2019) CREATININE-OUTSIDE LAB 2.06(A) 0.6 - 1.2 MG/DL OUTSIDE LAB (SEE SCANNED REPORT) GFR ESTIMATED-OUTSIDE LAB 25.0(A) >60 ML/MIN OUTSIDE LAB (SEE SCANNED REPORT) POTASSIUM-OUTSIDE LAB 4.4 3.5 - 5.1 MMOL/L OUTSIDE LAB (SEE SCANNED REPORT) GLUCOSE-OUTSIDE LAB 256(A) 70 - 99 MG/DL OUTSIDE LAB (SEE SCANNED REPORT) HOURS FASTING OUTSIDE LAB (S EE SCANNED REPORT) TRIGLYCERIDES-OUTSID E LAB OUTSIDE LAB (SEE SCANNED REPORT) CHOLESTEROL-OUTSIDE LAB OUTSIDE LAB (SEE SCANNED REPORT) HDL-OUTSIDE LAB OUTSIDE LAB (SEE SCANNED REPORT) CHOL/HDL RATIO-OUTSIDE LAB OUTSIDE LAB (SEE SCANNED REPORT) LDL (CALCULATED)-OUTSIDE LAB OUTSIDE LAB (SEE SCANNED REPORT) LDL (DIRECT MEASURE)-OUTSIDE LAB OUTSIDE LAB (SEE SCANNED REPORT) HEMOGLOBIN, P1Y-HNAXZCM LAB OUTSIDE LAB (SEE SCANNED REPORT) PHOSPHORUS-OUTSIDE LAB OUTSIDE LAB (SEE SCANNED REPORT) PTH-OUTSIDE LAB OUTSIDE LAB (SEE SCANNED REPORT) MICROALBUMIN RATIO-OUTSIDE LAB OUTSIDE LAB (SEE SCANNED REPORT) PROTEIN, UA-OUTSIDE LAB NEGATIVE NEGATIVE OUTSIDE LAB (SEE SCANNED REPORT) HEMOGLOBIN-OUTSIDE LAB 14.2 12.0 - 16.0 G/DL OUTSIDE LAB (SEE SCANNED REPORT) CHEMISTRY COMMENT-OUTSIDE LAB Comment:SEE SCAN [facility]: CMP, CHEM HEMOLYSIS, MG, TSH W REFLEX, CBCD, UA OUTSIDE LAB (SEE SCANNED REPORT) Specimen Narrative Performed At Performing Organization Address City/State/Zipcod e Phone Number OUTSIDE LAB (SEE SCANNED REPORT) documented in this encounter Advance Directives Documents on File Type Date Recorded Patient Hand Stemmer Expl anation Advanced Directive 08/22/2009 12:00 AM [...]
--- OUTSIDE RECORDS SUMMARY | 2023-06-01 05:50 | External Medical Summary | Summary of Care ---
Author Name Unknown Organization [place] [address] Care Team Providers Care Exhibit Carpenter Name Role Phone Kevin Whiteside Primary Care Provider Encounter Details Date Type Department Care Team Description 02/26/2019 Scan Encounter Unspecified Department <No scans attached> Allergies Active Allergy Reactions Severity Noted Date Comments Heparin 09/04/2009 Heparin Induced Thrombocytopenia Empagliflozin Other (Please comment) Medium 05/17/2018 3 yeast infections in 6 weeks after starting Morphine And Related 09/16/1997 Hallucinations Tetanus Toxoid Other (Please comment) 06/15/2011 Passed out documented as of this encounter (statuses as of 02/28/2019) Medications Medication Sig Dispensed Refills Start Date [...] SOPNIndications:DM type 2, goal: symptom mgmt ([facility]) Inject 1.8 mg under the skin daily. [...] RESTORATIVE CARE),Hypoxemia,ELISSA (obstructive sleep apnea),HTN, goal below 130/80 Take 1 Tab by mouth daily. 31 Tab 5 9 Active Insulin Degludec (TRESIBA FLEXTOUCH) 200 UNIT/ML SOPN Inject up to 160 units subcutaneously once daily as directed 9 mL 5 9 Active DULoxetine (CYMBALTA) 60 MG CPEPIndications:Fib romyalgia,Moderate episode of recurrent major depressive disorder ([facility]),Primary osteoarthritis of both knees Take 1 [...] Tab 5 9 Active Vitamin D, Ergocalciferol, 38368 units CapsuleIndications: Vitamin D deficiency Take one capsule by mouth once a week 13 Cap 0 9 Active furosemide (LASIX) 80 MG Tablet Take 1 Tab by mouth 2 times a day. Med was increased during hospitalization 180 Tab 3 9 Active Blood Glucose Monitoring Suppl (OutSystems ULTRA 2) w/Device KIT Use to test [...] as of this encounter (statuses as of 02/28/2019) Active Problems Problem Noted Date Other atherosclerosis of [place] arteries of extremities, left leg 02/26/2019 Impetigo [...] 10/14/2014 Overview: ICD-10 update of inactive term [place] filter in place 08/19/2014 History of pulmonary [...] as of this encounter (statuses as of 02/28/2019) Resolved Problems Problem Noted Date Resolved Date [...] as of this encounter (statuses as of 02/28/2019) Immunizations Name Administration Dates Next Due Pneumococcal [...] Office Visit Gynecology Obstetrics Alvina Hi CNM [address] [place] [address] [phone] 03/05/2019 Pharmacy Pharmacy [facility] [address] [facility] [place] [address] 03/14/2019 Pharmacy Pharmacy [facility] [address] [facility] [place] [address] 03/14/2019 Office Visit Cardiology Rey Woodall MD [address] [facility] [place] [address] [phone] 04/24/2019 Office Visit Sleep Disorders Celsa Tafoya CRNP [address] [facility] [place] [address] [phone] Health Maintenance Due Date Last Done Comments DIABETES-EYE EXAM 02/24/2011 02/24/2010 (Do ne elsewhere), 12/18/2009, 02/18/2008 (Done elsewhere) PAP SMEAR-EVERY 3 YRS,AGES 21-65 05/11/2016 05/11/2013, 03/01/2008, 10/19/2006, Additional history exists CKD PHOS USE SMARTSET 34948 12/29/2018 04/0 01/2018, 08/26/2009, 08/25/2009, Additional history exists DIABETES-HGBA1C EVERY 6 MONTHS 03/27/2019 09/27/2018, 05/01/2018, 12/29/2017, Additional history exists Yearly B-12 05/16/2019 05/16/2018 BREAST CANCER SCREENING DISCUSSION YEARLY AGES 40-75 06/23/2019 06/23/2018, 05/09/2015, 07/12/2014, Additional history exists CKD GFR USE SMARTSET 01354 08/28/201902/26, 01/12/2019, 12/23/2018, Additional history exists DIABETES-FOOT EXAM 01/02/2020 01/01/2019, 0 12/29/2017, 10/21/2016, Additional history exists CKD HGB USE SMARTSET 77939 02/27/202002/26, 12/23/2018, 12/08/2018, Additional history exists PNEUMOCOCCAL [...] Documents on File Type Date Recorded Patient Roofing Sales 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 Expl anation Advanced Directive 08/22/2009 [...]
--- OUTSIDE RECORDS SUMMARY | 2023-06-01 05:50 | External Medical Summary | Summary of Care ---
Author Name Unknown Organization [place] [address] Care Team Providers Care Industrial Roofer Name Role Phone Kevin Whiteside Primary Care Provider Reason for Visit * Reason Comments Dosage Adjustment In Person (Anticoag Cl inic) Diabetes Follow-Up Encounter Details Date Type Department Care Team Description 02/26/2019 Pharm[facility] [address] [facility] [address] Uncontrolled type 2 diabetes mellitus with stage 3 chronic kidney disease, with long-term current use of insulin ([facility]; Type 2 diabetes mellitus with hemoglobin [...] 5 01/13/20 19 Active Vitamin D, Ergocalciferol, 77272 units CapsuleIndications :Vitamin D deficiency Take one capsule by mouth once a week 13 Cap 0 01/14/20 19 Active furosemide (LASIX) 80 MG Tablet Take 1 Tab by mouth 2 times a day. Med was increased during hospitalization 180 Tab 3 01/27/20 19 Active Blood Glucose Monitoring Suppl (EventRadarUCH ULTRA 2) w/Device KIT Use to test [...] this encounter Progress Notes * Rose Barton, [facility] - 02/26/2019 10:04 AM EDT Medication Therapy [...] Dyslipidemia Chronic diastolic congestive heart failure ([facility]) Mental Health ELLEI (generalized anxiety disorder) Mild episode of recurrent major depressive disorder ([facility]) Endocrine Postsurgical hypothyroidism Type 2 diabetes mellitus with hemoglobin A1c goal of 7.0%-8.0% ([facility]) Uncontrolled type 2 diabetes mellitus with stage 3 chronic kidney disease, with long-term current use of insulin ([facility]) Pulmonary Nocturnal hypoxemia ELISSA (obstructive sleep apnea) History of pulmonary embolus (PE) Vascular Venous insufficiency [place] filter in place Nephrology HTN, goal below 130/80 General Statin intolerance Abnormality of gait Controlled substance agreement signed Neurology Restless legs syndrome Gastrointestinal Gastroesophageal reflux disease with esophagitis Body mass index (BMI) of 50.0 to 59.9 in adult ([facility]) Dermatology Impetigo OTHER Other atherosclerosis of [place] arteries of extremities, left leg ([facility]) Review of patient's allergies indicates: Allergen Reactions [...] day. 30 mL 4 Vitamin D, Ergocalciferol, 40073 units Capsule Take one capsule by mouth [...] following reasons: The patient has a prior [place] or stroke diagnosis Estimated body mass index [...] pump demo provided. Will send information to [employer]. Patient is agreeable to SMBG 4 time(s) [...] week(s) Next Office Visit: 03/14/2019 [facility] Clinical Pharmacist Medication Therapy Disease Management 02/26/2019, 10:05 AM documented in this encounter Plan of Treatment Upcoming Encounters Date Type Specialty Care Team Description 02/28/2019 Office Visit Gynecology Obstetrics Alvina Hi CNM [address] [place] [address] [place] [address] [phone] 03/05/2019 Pharmacy Pharmacy [facility] [address] [place] [address] 03/14/2019 Pharmacy [facility] [place] [address] 03/14/2019 Office Visit Cardiology Rey Woodall MD [address] [place] [address] [phone] 04/24/2019 Office Visit Sleep Disorders Celsa Tafoya CRNP [address] [place] [address] [phone] Health Maintenance Due Date Last Done Comments DIABETES-EYE EXAM 02/24/2011 02/24/2010 (Do ne elsewhere), 12/18/2009, 02/18/2008 (Done elsewhere) PAP SMEAR-EVERY 3 YRS,AGES 21-65 05/11/2016 05/11/2013, 03/01/2008, 10/19/2006, Additional history exists CKD PHOS USE SMARTSET 93303 12/29/2018 04/0 01/2018, 08/26/2009, 08/25/2009, Additional history exists DIABETES-HGBA1C EVERY 6 MONTHS 03/27/2019 09/27/2018, 05/01/2018, 12/29/2017, Additional history exists Yearly B-12 05/16/2019 05/16/2018 BREAST CANCER SCREENING DISCUSSION YEARLY AGES 40-75 06/23/2019 06/23/2018, 05/09/2015, 07/12/2014, Additional history exists CKD GFR USE SMARTSET 33856 07/14/201901/12, 12/23/2018, 12/18/2018, Additional history exists CKD HGB USE SMARTSET 04371 12/24/201912/23, 12/08/2018, 06/06/2018, Additional history exists DIABETES-FOOT [...] on File Type Date Recorded Patient Batch Dumper Expl anation Advanced Directive 08/22/2009 12:00 AM [...]
--- OUTSIDE RECORDS SUMMARY | 2023-06-01 05:50 | External Medical Summary | Summary of Care ---
Author Name Unknown Organization [place] [address] Care Team Providers Care Payroll Auditor Name Role Phone Kevin Whiteside Primary Care Provider Reason for Visit * Reason Comments Dosage Adjustment In Person (Anticoag Cl inic) Diabetes Follow-Up Encounter Details Date Type Department Care Team Description 01/26/2019 [facility] [address] [facility] [place] [address] Uncontrolled type 2 diabetes mellitus with stage 3 chronic kidney disease, with long-term current use of insulin ([facility])*; Type 2 diabetes mellitus with hemoglobin A1c goal of 7.0%-8.0% ([facility]) Allergies Active Allergy Reactions Severity Noted [...] 5 01/13/20 19 Active Vitamin D, Ergocalciferol, 30383 units CapsuleIndications :Vitamin D deficiency Take one capsule by mouth once a week 13 Cap 0 01/14/20 19 Active furosemide (LASIX) 80 MG Tablet Take 1 Tab by mouth 2 times a day. Med was increased during hospitalization 180 Tab 3 01/27/20 19 Active Blood Glucose Monitoring Suppl (Logic Product GroupUCH ULTRA 2) w/Device KIT Use to test BG values 1 Kit 0 01/27/20 19 Active insulin aspart (NOVOLOG FLEXPEN) 100 UNIT/ML SOPN inject 25 units with breakfast, 20 units with lunch and 30 units with dinner plus sliding scale up to 150 units per day. 30 mL 4 01/27/20 19 Active Insulin Pen Needle (BD PEN NEEDLE SHORT U/F) 31G X 8 MM Use 5 times daily with insulin 200 Box Dosing Unit 11 08/01/20 18 019 Discontinued levothyroxine (LEVOXYL) 25 MCG TabletIndications: Postsurgical hypothyroidism TAKE ONE TABLET BY MOUTH IN THE MORNING AT LEAST 30 MINUTES PRIOR TO BREAKFAST OR OTHER MEDS 90 Tab 1 08/01/20 18 019 Discontinued rOPINIRole (REQUIP) 1 MG TabletIndications: Restless legs syndrome Take 1 Tab by mouth at bedtime. 90 Tab 4 08/01/20 18 019 Discontinued insulin aspart (NOVOLOG FLEXPEN) 100 UNIT/ML SOPN Inject 18 units breakfast, 10 units with lunch and 20 units with dinner plus sliding scale up to 100 units per day 10 Pre-filled Pen Syringe Dosing Unit 5 08/24/20 18 019 Discontinued Blood Glucose Monitoring Suppl (ACCU-CHEK HARRIS PLUS) w/Device KIT Use to test sugar 3-4 times daily. 1 Kit 0 08/30/20 18 019 Discontinued insulin aspart (NOVOLOG FLEXPEN) 100 UNIT/ML SOPN inject 15 units with breakfast, 10 units with lunch and 18 units with dinner plus sliding scale up to 80 units per day. 15 mL 4 12/02/19 19 019 Discontinued metoprolol tartrate (LOPRESSOR) 25 MG TabletIndications: HTN, goal below 130/80,Acute diastolic congestive heart failure (HCC),Body mass index (BMI) of 50.0 to 59.9 in adult (HCC),Hypoxemia,OS A (obstructive sleep apnea),HTN, goal below 140/80 Take 1 Tab by mouth 2 times a day. 180 Tab 3 01/02/20 19 019 Discontinued cefdinir (OMNICEF) 300 MG CapsuleIndications :UTI symptoms Take 1 Cap by mouth every 12 hours for 7 days. For 10 days. 14 Cap 0 01/24/20 019 documented as of this encounter (statuses as of 02/26/2019) Active Problems Problem Noted Date Other atherosclerosis of [place] arteries of extremities, left leg 02/26/2019 Impetigo [...] this encounter Progress Notes * Rose Barton, [facility] - 01/26/2019 12:36 PM EDT Medication Therapy Disease Management Diabetes Interval History: Stephanie Camp is an 63 year old year old female returning to the [facility] for a diabetes follow-up appointment. Blood glucose control since last visit: worse Medication intolerance: no Medication compliance: yes Hospitalization or ED Utilization since last visit: no Hypoglycemia requiring assistance since last visit: no Symptoms of hyperglycemia or hypoglycemia present today: no Diet: unchanged Exercise: none Current Diabetes Medications: Tresiba 160 units daily Victoza 1.8 mg daily Increase Novolog 18 units with breakfast, 10 units lunch, 22 units at dinner + CF 1:18 over 120 at meals and bedtime Self-Monitoring Blood Glucose Review: Patient currently tests blood glucose 4 time(s) daily Hypoglycemia: 1. Do you know what the [...] Cardiac Dyslipidemia Chronic diastolic congestive heart failure ([facility]) Mental Health ELLIE (generalized anxiety disorder) Mild episode of recurrent major depressive disorder ([facility]) Endocrine Postsurgical hypothyroidism Type 2 diabetes mellitus with hemoglobin A1c goal of 7.0%-8.0% ([facility]) Uncontrolled type 2 diabetes mellitus with stage 3 chronic kidney disease, with long-term current use of insulin ([facility]) Pulmonary Nocturnal hypoxemia ELISSA (obstructive sleep apnea) History of pulmonary embolus (PE) Vascular Venous insufficiency [place] filter in place Nephrology HTN, goal below 130/80 General Statin intolerance Abnormality of gait Controlled substance agreement signed Neurology Restless legs syndrome Gastrointestinal Gastroesophageal reflux disease with esophagitis Body mass index (BMI) of 50.0 to 59.9 in adult ([facility]) Dermatology Impetigo Review of patient's allergies indicates: Allergen Reactions Jardiance [Empagliflozin] Other (Please comment) 3 yeast infections in 6 weeks after starting Heparin Heparin Induced Thrombocytopenia Morphine And Related Hallucinations Tetanus Toxoid Other (Please comment) Passed out Current Outpatient Medications Medication Sig Dispense Refill furosemide (LASIX) 80 MG Tablet Take 1 Tab by mouth 2 times a day. Med was increased during hospitalization 180 Tab 3 cefdinir (OMNICEF) 300 MG Capsule Take 1 Cap by mouth every 12 hours for 7 days. For 10 days. 14 Cap 0 Vitamin D, Ergocalciferol, 57641 units Capsule Take one capsule by mouth once a week 13 Cap 0 spironolactone (ALDACTONE) 25 MG Tablet Take 0.5 Tabs by mouth daily. 45 Tab 5 gabapentin (NEURONTIN) 300 MG Capsule Take 1 Cap by mouth 3 times a day. 270 Cap 5 metoprolol tartrate (LOPRESSOR) 25 MG Tablet Take 1 Tab by mouth 2 times a day. 180 Tab 3 DULoxetine (CYMBALTA) 60 MG CPEP Take 1 Cap by mouth daily. Do not cut, crush or chew 90 Cap 5 traMADol (ULTRAM) 50 MG Tablet Take 1 Tab by mouth every 6 hours as needed for Pain. 30 Tab 0 insulin aspart (NOVOLOG FLEXPEN) 100 UNIT/ML SOPN inject 15 units with breakfast, 10 units with lunch and 18 units with dinner plus sliding scale up to 80 units per day. 15 mL 4 Insulin Degludec (TRESIBA FLEXTOUCH) 200 UNIT/ML SOPN [...] if needed. 400 Box Dosing Unit 3 Blood Glucose Monitoring Suppl (ACCU-CHEK HARRIS PLUS) w/Device KIT Use to test sugar 3-4 times daily. 1 Kit 0 Glucose Blood (ACCU-CHEK HARRIS PLUS) STRP Test sugar 3-4 times a day. 400 Strip 3 insulin aspart (NOVOLOG FLEXPEN) 100 UNIT/ML SOPN Inject 18 units breakfast, 10 units with lunch and 20 units with dinner plus sliding scale up to 100 units per day 10 Pre-filled Pen Syringe Dosing Unit 5 cyclobenzaprine (FLEXERIL) 10 MG Tablet TAKE ONE [...] breakfast or other meds 90 Tab 5 levothyroxine (LEVOXYL) 25 MCG Tablet TAKE ONE TABLET BY MOUTH IN THE MORNING AT LEAST 30 MINUTES PRIOR TO BREAKFAST OR OTHER MEDS 90 Tab 1 liraglutide (VICTOZA) 18 MG/3ML SOPN Inject 1.8 mg under the skin daily. As directed 9 Pre-filled Pen Syringe Dosing Unit 11 Nortriptyline HCl (PAMELOR) 50 MG Capsule Take 1 Cap by mouth at bedtime. 90 Cap 5 ONETOUCH DELICA LANCETS 33G MISC Check blood sugars 3-4 times daily 180 Each 5 rOPINIRole (REQUIP) 1 MG Tablet Take 1 Tab by mouth at bedtime. 90 Tab 4 MAG64 64 MG TBEC Take 64 mg by mouth 2 times a day. docusate sodium (STOOL SOFTENER) 100 MG Capsule Take 100 mg by mouth 2 times a day as needed for Constipation. oxygen GAS 4 LPM bled through CPAP 11 cwp during all periods of sleep. 1 Each 0 PRILOSEC 20 MG PO CPDR one tablet daily Objective: The 10-year ASCVD risk score (Carrolltownadrianna JOHNS Jr., et al., 2013) is: 11.2% Values used to calculate the score: Age: 63 years Sex: Female Is Non- : No Diabetic: Yes Tobacco smoker: No Systolic Blood Pressure: 114 mmHg Is BP treated: Yes HDL Cholesterol: 38 mg/dL Total Cholesterol: 206 mg/dL Estimated body mass index is 56.78 kg/m as calculated from the following: Height as of 01/23/19: 1.651 m (5' 5"). Weight as of 01/23/19: 154.8 kg (341 lb 3.2 oz). BP Readings from Last 3 Encounters: 01/23/19 114/70 01/12/19 116/58 01/01/19 100/62 No POC components found HEMOGLOBIN, A1C(%) Nessa Dt/Tm Resulted Value Status 09/27/18 1:48P 09/27/18 9.5* FINAL 8/6/18 9:12A 05/01/18 10.0* FINAL 12/29/17 12:43P 12/29/17 [...] to adjust medications as noted below. Patient did not bring BG logs to appointment today. Patient states BG values are elevated, 300s in the morning. Suspect possible basal overload, will try to reduce while increase novolog. Patient agreeable to plan. Provided new correction factor sheet. Patient is agreeable to SMBG 3 time(s) daily. Patient aware to contact clinic if any hypoglycemia before next visit. Reviewed rule of 15s. Diabetes Medications: DECREASE: Tresiba 140 units daily Victoza 1.8 mg daily Increase Novolog 25 units with breakfast, 18 units lunch, 28 units at dinner + CF 1:18 over 120 at meals and bedtime Diabetes Health Maintenance: due for eye exam Return to clinic: 8 week(s) Next Office Visit: 03/14/2019 Scheduled Provider(s): [facility] Jeramie Barton [facility] Clinical Pharmacist Medication Therapy Disease Management 01/26/2019, 12:36 PM documented in this encounter Plan of Treatment Upcoming Encounters Date Type Specialty Care Team Description 02/28/2019 Office Visit Gynecology Obstetrics Alvina Hi CNM [address] [place] [address] [place] [address] [phone] 03/05/[facility] [address] [place] [address] 03/14/2019 Pharmacy Pharmacy [facility] [place] [address] [place] [address] 03/14/2019 Office Visit Cardiology Rey Woodall MD [address] [place] [address] [phone] 04/24/2019 Office Visit Sleep Disorders Celsa Tafoya CRNP [address] [place] [address] [phone] Health Maintenance Due Date Last Done Comments DIABETES-EYE EXAM 02/24/2011 02/24/2010 (Do ne elsewhere), 12/18/2009, 02/18/2008 (Done elsewhere) PAP SMEAR-EVERY 3 YRS,AGES 21-65 05/11/2016 05/11/2013, 03/01/2008, 10/19/2006, Additional history exists CKD PHOS USE SMARTSET 03220 12/29/201801/2018, 08/26/2009, 08/25/2009, Additional history exists DIABETES-HGBA1C EVERY 6 MONTHS 03/27/2019 09/27/2018, 05/01/2018, 12/29/2017, Additional history exists Yearly B-12 05/16/2019 05/16/2018 BREAST CANCER SCREENING DISCUSSION YEARLY AGES 40-75 06/23/2019 06/23/2018, 05/09/2015, 07/12/2014, Additional history exists CKD GFR USE SMARTSET 45400 07/14/201901/12, 12/23/2018, 12/18/2018, Additional history exists CKD HGB USE SMARTSET 20642 12/24/201912/23, 12/08/2018, 06/06/2018, Additional history exists DIABETES-FOOT [...] Documents on File Type Date Recorded Patient Client Development Director Expl anation Advanced Directive 08/22/2009 12:00 [...]
--- OUTSIDE RECORDS SUMMARY | 2023-06-01 05:50 | External Medical Summary | Summary of Care ---
Author Name Unknown Organization [place] [address] Care Team Providers Care Chairman Ceo Name Role Phone Kevin Whiteside Primary Care Provider Reason for Visit * Reason Comments No Show Encounter Details Date Type Department Care Team Description 02/28/2019 Telephone [facility] Gynecology/Obstetrics [address] [place] [address] Alvina Hi CN [address] [facility] [place] [address] No Show Allergies Active Allergy Reactions Severity Noted Date [...] [facility]),Hypoxemia,ELISSA (obstructive sleep apnea),HTN, goal below 130/80 [...] Tab 5 9 Active Vitamin D, Ergocalciferol, 64768 units CapsuleIndications: Vitamin D deficiency Take one capsule by mouth once a week 13 Cap 0 9 Active furosemide (LASIX) 80 MG Tablet Take 1 Tab by mouth 2 times a day. Med was increased during hospitalization 180 Tab 3 9 Active Blood Glucose Monitoring Suppl (COADE ULTRA 2) w/Device KIT Use to test [...] Problems Problem Noted Date Other atherosclerosis of [place] arteries of extremities, left leg 02/26/2019 Impetigo [...] 10/14/2014 Overview: ICD-10 update of inactive term [place] filter in place 08/19/2014 History of pulmonary [...] encounter Miscellaneous Notes * Telephone Encounter - Yvette Lester LPN - 02/28/2019 3:32 PM EDT Letter sent documented in this encounter Plan of Treatment Upcoming Encounters Date Type Specialty Care Team Description 03/05[facility] [address] [place] [address] 03/14/[facility] [place] [address] [place] [address] 03/14/2019 Office Visit Cardiology Rey Woodall MD [address] [place] [address] [phone] 04/24/2019 Office Visit Sleep Disorders Celsa Tafoya CRNP [address] [place] [address] [phone] Health Maintenance Due Date Last Done Comments DIABETES-EYE EXAM 02/24/2011 02/24/2010 (Do ne elsewhere), 12/18/2009, 02/18/2008 (Done elsewhere) PAP SMEAR-EVERY 3 YRS,AGES 21-65 05/11/2016 05/11/2013, 03/01/2008, 10/19/2006, Additional history exists CKD PHOS USE SMARTSET 39198 12/29/2018 04/0 01/2018, 08/26/2009, 08/25/2009, Additional history exists DIABETES-HGBA1C EVERY 6 MONTHS 03/27/2019 09/27/2018, 05/01/2018, 12/29/2017, Additional history exists Yearly B-12 05/16/2019 05/16/2018 BREAST CANCER SCREENING DISCUSSION YEARLY AGES 40-75 06/23/2019 06/23/2018, 05/09/2015, 07/12/2014, Additional history exists CKD GFR USE SMARTSET 04676 08/28/201902/26, 01/12/2019, 12/23/2018, Additional history exists DIABETES-FOOT EXAM 01/02/2020 01/01/2019, 0 12/29/2017, 10/21/2016, Additional history exists CKD HGB USE SMARTSET 30666 02/27/202002/26, 12/23/2018, 12/08/2018, Additional history exists PNEUMOCOCCAL [...] Documents on File Type Date Recorded Patient Gristmiller Expl anation Advanced Directive 08/22/2009 12:00 AM [...]
--- OUTSIDE RECORDS SUMMARY | 2023-06-01 05:50 | External Medical Summary | Summary of Care ---
Author Name Unknown Organization [place] [address] Care Team Providers Care Offset Platemaker Name Role Phone Kevin Whiteside Primary Care Provider Encounter Details Date Type Department Care Team Description 02/27/2019 Scan Encounter Unspecified Department <No scans attached> [...] symptom mgmt ([facility]) Inject 1.8 mg under the skin daily. [...] in adult ([facility]),Hypoxemia,ELISSA (obstructive sleep apnea),HTN, goal below 130/80 Take [...] Tab 5 9 Active Vitamin D, Ergocalciferol, 21034 units CapsuleIndications: Vitamin D deficiency Take one capsule by mouth once a week 13 Cap 0 9 Active furosemide (LASIX) 80 MG Tablet Take 1 Tab by mouth 2 times a day. Med was increased during hospitalization 180 Tab 3 9 Active Blood Glucose Monitoring Suppl ([employer] ULTRA 2) [...] Problems Problem Noted Date Other atherosclerosis of [place] arteries of extremities, left leg 02/26/2019 Impetigo [...] 10/14/2014 Overview: ICD-10 update of inactive term [place] filter in place 08/19/2014 History of pulmonary [...] Visit Gynecology Obstetrics Alvina Hi CNM [address] [place] [address] [phone] 03/05/2019 Pharmacy Pharmacy [facility] [address] [facility] [place] [address] 03/14/2019 Pharmacy Pharmacy [facility] [address] [facility] [place] [address] 03/14/2019 Office Visit Cardiology Rey Woodall MD 132 [facility] [place] [address] [phone] 04/24/2019 Office Visit Sleep Disorders Celsa Tafoya CRNP 132 [facility] [place] [address] [phone] Health Maintenance Due Date Last Done Comments DIABETES-EYE EXAM 02/24/2011 02/24/2010 (Do ne elsewhere), 12/18/2009, 02/18/2008 (Done elsewhere) PAP SMEAR-EVERY 3 YRS,AGES 21-65 05/11/2016 05/11/2013, 03/01/2008, 10/19/2006, Additional history exists CKD PHOS USE SMARTSET 64493 12/29/2018 04/0 01/2018, 08/26/2009, 08/25/2009, Additional history exists DIABETES-HGBA1C EVERY 6 MONTHS 03/27/2019 09/27/2018, 05/01/2018, 12/29/2017, Additional history exists Yearly B-12 05/16/2019 05/16/2018 BREAST CANCER SCREENING DISCUSSION YEARLY AGES 40-75 06/23/2019 06/23/2018, 05/09/2015, 07/12/2014, Additional history exists CKD GFR USE SMARTSET 84755 08/28/201902/26, 01/12/2019, 12/23/2018, Additional history exists DIABETES-FOOT EXAM 01/02/2020 01/01/2019, 0 12/29/2017, 10/21/2016, Additional history exists CKD HGB USE SMARTSET 13710 02/27/202002/26, 12/23/2018, 12/08/2018, Additional history exists PNEUMOCOCCAL [...] Documents on File Type Date Recorded Patient Welfare Director Expl anation Advanced Directive 08/22/2009 12:00 [...]
--- OUTSIDE RECORDS SUMMARY | 2023-06-01 05:50 | External Medical Summary | Summary of Care ---
Author Name Unknown Organization [place] [address] Care Team Providers Care Interactive Media Marketing Strategist Name Role Phone Kevin Whiteside Primary Care Provider Reason for Visit * Reason Comments Dosage Adjustment In Person (Anticoag Cl inic) Diabetes Follow-Up Encounter Details Date Type Department Care Team Description 11/22/2018 [address] [address] [facility] [address] [place] [address] Uncontrolled type 2 diabetes mellitus with stage [...] directed 9 mL 5 11/22/19 19 Active Insulin Pen Needle (BD PEN [...] 90 Tab 4 08/01/20 18 019 Discontinued metoprolol tartrate (LOPRESSOR) 25 MG TabletIndications: HTN, goal below 130/80,Acute diastolic congestive heart failure (HCC),Body mass index (BMI) of 50.0 to 59.9 in adult (HCC),Hypoxemia,OS A (obstructive sleep apnea),HTN, goal below 140/80 Take 2 Tabs by mouth 2 times a day. 360 Tab 3 08/01/20 18 019 Discontinued ergocalciferol (VITAMIN D2,DRISDOL,) 07864 UNIT CapsuleIndications :Vitamin D deficiency Take 1 Cap by mouth once a week. 13 Cap 1 08/02/20 18 019 Discontinued insulin aspart (NOVOLOG FLEXPEN) [...] 1 Kit 0 08/30/20 18 019 Discontinued Gabapentin (NEURONTIN) 600 MG TabletIndications: Uncontrolled type 2 diabetes mellitus with stage 3 chronic kidney disease, with long-term current use of insulin (HCC) Take 1 Tab by mouth 3 times a day. 90 Tab 11 09/04/20 18 019 Discontinued furosemide (LASIX) 80 MG TabletIndications: Acute diastolic congestive heart failure (HCC) Take 1 Tab by mouth daily. Take an additional tablet as directed or needed for fluid retention 60 Tab 3 10/23/19 19 019 Discontinued DULoxetine (CYMBALTA) 30 MG CPEPIndications:Fi bromyalgia,Moderat e episode of recurrent major depressive disorder (HCC),Primary osteoarthritis of both knees Take 1 Cap by mouth daily. 90 Cap 1 11/14/19 19 019 Discontinued Insulin Degludec (TRESIBA FLEXTOUCH) 200 UNIT/ML SOPN Inject up to 160 units subcutaneously once daily as directed 9 mL 5 11/20/19 19 019 Discontinued documented as of this encounter (statuses as of 02/26/2019) Active Problems Problem Noted Date Other atherosclerosis of [place] arteries of extremities, left leg 02/26/2019 Impetigo [...] this encounter Progress Notes * Rose Barton, [facility] - 11/22/2018 10:17 AM EST Medication Therapy Disease Management Diabetes Interval History: Stephanie Camp is an 63 year old year old female returning to the Medication Therapy Disease Management [facility] for a diabetes follow-up appointment. Blood glucose control since last visit: stable Medication intolerance: no Medication compliance: yes Hospitalization or ED Utilization since last visit: no Hypoglycemia requiring assistance since last visit: no Symptoms of hyperglycemia or hypoglycemia present today: no Diet: unchanged Exercise: none Current Diabetes Medications: Increase Tresiba 160 units daily Victoza 1.8 mg daily Increase Novolog 18 units with breakfast, 10 units lunch, 20 units at dinner + CF 1:20 over 120 at meals and bedtime Self-Monitoring Blood Glucose Review: Patient currently tests blood glucose 4 time(s) daily Pre am Post am Pre Lunch Post Lunch Pre pm Post pm HS 224 237 270 152 282 266 206 220 253 218 234 201 158 248 176 218 279 259 Average 231 #DIV/0! 193 #DIV/0! 261 #DIV/0! 259 Hi 266 0 224 0 282 0 259 Lo 201 0 152 [address] 228[address]5 0 195.2 0 262.5 0 259 Range 65 0 72 0 48 0 0 Hypoglycemia: 1. Do you know what [...] [facility]) Mental Health ELLIE (generalized anxiety disorder) [...] [facility]) Dermatology Impetigo Review of patient's allergies [...] once daily as directed 9 mL 5 DULoxetine (CYMBALTA) 30 MG CPEP Take 1 Cap by mouth daily. 90 Cap 1 lisinopril (PRINIVIL) 2.5 MG Tablet Take 1 Tab by mouth daily. 31 Tab 5 furosemide (LASIX) 80 MG Tablet Take 1 Tab by mouth daily. Take an additional tablet as directed orneeded for fluid retention 60 Tab 3 clonazePAM (KLONOPIN) 0.5 MG Tablet TAKE ONE TABLET BY MOUTH TWICE DAILY 180 Tab 3 Gabapentin (NEURONTIN) 600 MG Tablet Take 1 Tab by mouth 3 times a day. 90 Tab 11 ACCU-CHEK SOFTCLIX LANCETS MISC Test sugar 3-4 [...] 10 Pre-filled Pen Syringe Dosing Unit 5 ergocalciferol (VITAMIN D2,DRISDOL,) 62639 UNIT Capsule Take 1 Cap by mouth once a week. 13 Cap 1 cyclobenzaprine (FLEXERIL) 10 MG Tablet TAKE [...] 9 Pre-filled Pen Syringe Dosing Unit 11 metoprolol tartrate (LOPRESSOR) 25 MG Tablet Take 2 Tabs by mouth 2 times a day. 360 Tab 3 Nortriptyline HCl (PAMELOR) 50 MG [...] daily Objective: The 10-year ASCVD risk score (Freddy JOHNS Jr., et al., 2013) is: 11.6% Values used to calculate the score: Age: 63 years Sex: Female Is Non- : No Diabetic: Yes Tobacco smoker: No Systolic Blood Pressure: 116 mmHg Is BP treated: Yes HDL Cholesterol: 38 mg/dL Total Cholesterol: 206 mg/dL Estimated body mass index is 59.17 kg/m as calculated from the following: Height as of 08/01/18: 1.631 m (5' 4.21"). Weight as of 11/14/18: 157.4 kg (347 lb). BP Readings from Last 3 Encounters: 11/14/18 116/68 10/26/18 102/58 10/23/18 138/70 No POC orders found HEMOGLOBIN, A1C(%) Nessa Dt/Tm Resulted Value Status 09/27/18 1:48P 09/27/18 9.5* FINAL 05/01/18 9:12A 05/01/18 10.0* FINAL 12/29/17 12:43P 12/29/17 11.6* FINAL MICROALBUMIN RATIO(mg/g creat) Nessa Dt/Tm Resulted Value Status 05/01/18 9:13A 05/01/18 <18 FINAL 03/03/17 12:37P 03/03/17 <15 FINAL 06/24/16 3:28P 06/24/16 <12 FINAL BASIC METAB PANEL, BMP Nessa Dt/Tm Resulted Value Status BUN (mg/dL) 11/06/18 12:41P 11/06/18 43* F CREATININE (mg/dL) 11/06/18 12:41P 11/06/18 1.5* F E GLOM FILT RATE ( ) 11/06/18 12:41P 11/06/18 38.2* F SODIUM (mmol/L) 11/06/18 12:41P 11/06/18 138 F POTASSIUM (mmol/L) 11/06/18 12:41P 11/06/18 4.3 F CHLORIDE (mmol/L) 11/06/18 12:41P 11/06/18 97* F CO2 (mmol/L) 11/06/18 12:41P 11/06/18 26 F ANION GAP (mmol/L) 11/06/18 12:41P 11/06/18 15 F GLUCOSE (mg/dL) 11/06/18 12:41P 11/06/18 194* F CALCIUM (mg/dL) 11/06/18 12:41P 11/06/18 9.9 F ALT(U/L) Nessa Dt/Tm Resulted Value Status 10/26/18 9:39A 10/26/18 23 FINAL LDL (CALCULATED)(mg/dL) Nessa Dt/Tm Resulted Value Status 08/01/18 8:29A 08/01/18 111 FINAL Assessment & Plan:Glycemic control is stable but not at goal. Patient agreeable to adjust medications as noted below. Patient's BG values are slightly improved during the day time. Patient's evening numbers continue to be elevated as compared to the rest of her BG values. Recommending to increase sensitivity and fixed dosing at evening meal. Patient agreeable to this plan. Patient denies hypoglycemia at this time. Patient is agreeable to SMBG 3-4 time(s) daily. Patient aware to contact clinic [...] to clinic: 8 week(s) Next Office Visit: 01/17/2019 [facility] Clinical Pharmacist Medication Therapy Disease Management 11/22/2018, 10:17 AM documented in this encounter Plan of Treatment Upcoming Encounters Date Type Specialty Care Team Description 02/28/2019 Office Visit Gynecology Obstetrics Alvina Hi CNM [address] [place] [address] [phone] 03/05/2019 Pharmacy Pharmacy [facility] 132 [facility] [place] [address] 03/14/2019 Pharmacy Pharmacy [facility] [address] [place] [address] 03/14/2019 Office Visit Cardiology Rey Woodall MD [address] [place] [address] [phone] 04/24/2019 Office Visit [facility] Disorders [facility] [place] [address] [phone] Health Maintenance Due Date Last Done Comments DIABETES-EYE EXAM 02/24/2011 02/24/2010 (Do ne elsewhere), 12/18/2009, 02/18/2008 (Done elsewhere) PAP SMEAR-EVERY 3 YRS,AGES 21-65 05/11/2016 05/11/2013, 03/01/2008, 10/19/2006, Additional history exists CKD PHOS USE SMARTSET 88581 12/29/2018 04/0 01/2018, 08/26/2009, 08/25/2009, Additional history exists DIABETES-HGBA1C EVERY 6 MONTHS 03/27/2019 09/27/2018, 05/01/2018, 12/29/2017, Additional history exists Yearly B-12 05/16/2019 05/16/2018 BREAST CANCER SCREENING DISCUSSION YEARLY AGES 40-75 06/23/2019 06/23/2018, 05/09/2015, 07/12/2014, Additional history exists CKD GFR USE SMARTSET 31336 07/14/201901/12, 12/23/2018, 12/18/2018, Additional history exists CKD HGB USE SMARTSET 01543 12/24/201912/23, 12/08/2018, 06/06/2018, Additional history exists DIABETES-FOOT [...] Documents on File Type Date Recorded Patient Editor & Co Founder Expl anation Advanced Directive 08/22/2009 12:00 AM [...]
--- OUTSIDE RECORDS SUMMARY | 2023-06-01 05:50 | External Medical Summary | Summary of Care ---
Author Name Unknown Organization [place] [address] Care Team Providers Care Thermit Welding Machine Operator Name Role Phone Kevin Whiteside Primary Care Provider Encounter Details Date Type Department Care Team Description 02/26/2019 Result Scan Unspecified Department <No scans attached> [...] SOPNIndications:DM type 2, goal: symptom mgmt ([facility]) Inject 1.8 mg under the skin [...] [facility]),Hypoxemia,ELISSA (obstructive sleep apnea),HTN, goal below 130/80 Take 1 Tab by mouth daily. 31 Tab 5 9 Active Insulin Degludec (TRESIBA FLEXTOUCH) 200 UNIT/ML SOPN Inject up to 160 units subcutaneously once daily as directed 9 mL 5 9 Active DULoxetine (CYMBALTA) 60 MG CPEPIndications:Fib romyalgia,Moderate episode of recurrent major depressive disorder ([facility]),Primary osteoarthritis of both knees Take 1 [...] Tab 5 9 Active Vitamin D, Ergocalciferol, 91843 units CapsuleIndications: Vitamin D deficiency Take one capsule by mouth once a week 13 Cap 0 9 Active furosemide (LASIX) 80 MG Tablet Take 1 Tab by mouth 2 times a day. Med was increased during hospitalization 180 Tab 3 9 Active Blood Glucose Monitoring Suppl ([email or web address] ULTRA 2) w/Device KIT Use to test [...] Visit Gynecology Obstetrics Alvina Hi CNM [address] [place] [address] [phone] 03/05/2019 Pharmacy Pharmacy [facility] 132 [facility] [place] [address] 03/14/2019 Pharmacy Pharmacy [facility] 132 [facility] [place] [address] 03/14/2019 Office Visit Cardiology Rey Woodall MD 132 [facility] [place] [address] [phone] 04/24/2019 Office Visit Sleep Disorders Celsa Tafoya CRNP 132 [facility] [place] [address] [phone] Health Maintenance Due Date Last Done Comments DIABETES-EYE EXAM 02/24/2011 02/24/2010 (Do ne elsewhere), 12/18/2009, 02/18/2008 (Done elsewhere) PAP SMEAR-EVERY 3 YRS,AGES 21-65 05/11/2016 05/11/2013, 03/01/2008, 10/19/2006, Additional history exists CKD PHOS USE SMARTSET 76065 12/29/2018 04/0 01/2018, 08/26/2009, 08/25/2009, Additional history exists DIABETES-HGBA1C EVERY 6 MONTHS 03/27/2019 09/27/2018, 05/01/2018, 12/29/2017, Additional history exists Yearly B-12 05/16/2019 05/16/2018 BREAST CANCER SCREENING DISCUSSION YEARLY AGES 40-75 06/23/2019 06/23/2018, 05/09/2015, 07/12/2014, Additional history exists CKD GFR USE SMARTSET 39297 08/28/201902/26, 01/12/2019, 12/23/2018, Additional history exists DIABETES-FOOT EXAM 01/02/2020 01/01/2019, 0 12/29/2017, 10/21/2016, Additional history exists CKD HGB USE SMARTSET 10289 02/27/202002/26, 12/23/2018, 12/08/2018, Additional history exists PNEUMOCOCCAL [...] Name Priority Date/Time Associated Diagnosis Comments OUTSIDE LAB RESULTS 02/26/2019 documented in this encounter Results * OUTSIDE LAB RESULTS (02/26/2019) Specimen Narrative Performed At documented in this encounter Advance Directives Documents on File Type Date Recorded Patient Trimmer Sawyer Expl anation Advanced Directive 08/22/2009 12:00 AM [...]
--- OUTSIDE RECORDS SUMMARY | 2023-06-01 05:50 | External Medical Summary | Summary of Care ---
Author Name Unknown Organization [place] [address] Care Team Providers Care Air Traffic Control Manager Name Role Phone Kevin Whiteside DO Primary Care Provider Reason for Visit * Reason Comments eRx-Medication Refill Encounter Details Date Type Department Care Team Description 02/24/2019 Refill Family Practice [facility] [address] [facility] [address] Kevin Wh[facility]ide DO [address] [facility] [address] Allergies Active Allergy Reactions Severity Noted [...] 50.0 to 59.9 in adult ([facility]),Hypoxemia,ELISSA (obstructive sleep apnea),HTN, goal below 130/80 Take [...] cut, crush or chew 90 Cap 5 03/25/201 9 Active traMADol (ULTRAM) 50 MG Tablet [...] Tab 5 9 Active Vitamin D, Ergocalciferol, 84968 units CapsuleIndications: Vitamin D deficiency Take one capsule by mouth once a week 13 Cap 0 9 Active furosemide (LASIX) 80 MG Tablet Take 1 Tab by mouth 2 times a day. Med was increased during hospitalization 180 Tab 3 9 Active Blood Glucose Monitoring Suppl ([employer] ULTRA 2) w/Device KIT Use to test [...] 50.0 to 59.9 in adult ([facility]),Hypoxemia,ELISSA (obstructive sleep apnea),HTN, goal below 140/80 Take 0.5 Tabs by mouth 2 times a day. 90 Tab 3 9 Active clobetasol propionate (TEMOVATE) 0.05 % ointmentIndications :Irritant contact dermatitis, unspecified trigger Apply topically to affected area 2 times a day. To affected area for up to two weeks. 60 g 1 9 Active documented as of this encounter (statuses as of 02/26/2019) Active Problems Problem Noted Date Other atherosclerosis of [place] arteries of extremities, left leg [...] encounter Miscellaneous Notes * Telephone Encounter - Neelam Zarco LPN - 02/26/2019 12:10 PM EDT Refused Prescriptions: Disp Refills Insulin Pen Needle (BD PEN NEEDLE SHORT U/* 10 Sig: Use 5 timesdaily with insulinRefused By: NEELAM ZARCO for Refusal: Duplicate Request documented in this encounter Plan of Treatment Upcoming Encounters Date Type Specialty Care Team Description 02/28/2019 Office Visit Gynecology Obstetrics Alvina Hi CNM [address] [place] [phone] 03/05/2019 Pharmacy Pharmacy [facility] [address] [place] [address] 03/14/2019 Pharmacy Pharmacy [facility] 132 [facility] [place] [address] 03/14/2019 Office Visit Cardiology Rey Woodall MD [address] [place] [address] [phone] 04/24/2019 Office Visit Sleep Disorders Celsa Tafoya CRNP [address] [place] [address] [phone] Health Maintenance Due Date Last Done Comments DIABETES-EYE EXAM 02/24/2011 02/24/2010 (Do ne elsewhere), 12/18/2009, 02/18/2008 (Done elsewhere) PAP SMEAR-EVERY 3 YRS,AGES 21-65 05/11/2016 05/11/2013, 03/01/2008, 10/19/2006, Additional history exists CKD PHOS USE SMARTSET 80387 12/29/2018 04/0 01/2018, 08/26/2009, 08/25/2009, Additional history exists DIABETES-HGBA1C EVERY 6 MONTHS 03/27/2019 09/27/2018, 05/01/2018, 12/29/2017, Additional history exists Yearly B-12 05/16/2019 05/16/2018 BREAST CANCER SCREENING DISCUSSION YEARLY AGES 40-75 06/23/2019 06/23/2018, 05/09/2015, 07/12/2014, Additional history exists CKD GFR USE SMARTSET 87706 07/14/201901/12, 12/23/2018, 12/18/2018, Additional history exists CKD HGB USE SMARTSET 82013 12/24/201912/23, 12/08/2018, 06/06/2018, Additional history exists DIABETES-FOOT [...] Documents on File Type Date Recorded Patient Buhr Mill Operator Expl anation Advanced Directive 08/22/2009 [...]
--- OUTSIDE RECORDS SUMMARY | 2023-06-01 05:51 | External Medical Summary | Summary of Care ---
Author Name Unknown Organization [place] [address] Care Team Providers Care Hospital Nurse Name Role Phone Kevin Whiteside DO Primary Care Provider Reason for Visit * Reason Comments Medication Refill Encounter Details Date Type Department Care Team Description 01/26/2019 [facility]ill [facility] [place] [address] [facility] [address] [facility] [place] [address] Allergies Active Allergy Reactions Severity Noted Date Comments Heparin 09/04/2009 Heparin Induced Thrombocytopenia Empagliflozin Other (Please comment) Medium 05/17/2018 3 yeast infections in 6 weeks after starting Morphine And Related 09/16/1997 Hallucinations Tetanus Toxoid Other (Please comment) 06/15/2011 Passed out documented as of this encounter (statuses as of 01/26/2019) Medications Medication Sig Dispensed Refills Start Date [...] SPASM 90 Tab 2 08/01/20 18 Active Insulin Pen Needle (BD PEN NEEDLE SHORT U/F) 31G X 8 MM Use 5 times daily with insulin 200 Box Dosing Unit 11 08/01/20 18 Active levothyroxine (LEVOXYL) 200 MCG TabletIndications: Postsurgical hypothyroidism TAKE ONE TABLET BY MOUTH ONE TIME DAILY at least 30 minutes prior to breakfast or other meds 90 Tab 5 08/01/20 18 Active levothyroxine (LEVOXYL) 25 MCG TabletIndications: Postsurgical hypothyroidism TAKE ONE TABLET BY MOUTH IN THE MORNING AT LEAST 30 MINUTES PRIOR TO BREAKFAST OR OTHER MEDS 90 Tab 1 08/01/20 18 Active liraglutide (VICTOZA) 18 MG/3ML SOPNIndications:DM type 2, goal: symptom mgmt (HCC) Inject 1.8 mg under the skin daily. As directed 9 Pre-filled Pen Syringe Dosing Unit 11 08/01/20 18 Active Nortriptyline HCl (PAMELOR) 50 MG CapsuleIndications :Fibromyalgia Take 1 Cap by mouth at bedtime. 90 Cap 5 08/01/20 18 Active rOPINIRole (REQUIP) 1 MG TabletIndications: Restless legs syndrome Take 1 Tab by mouth at bedtime. 90 Tab 4 08/01/20 18 Active Glucose Blood (ONETOUCH ULTRA BLUE) STRP Check sugars 3-4 times daily 360 Strip 5 08/01/20 18 Active ONETOUCH DELICA LANCETS 33G MISC Check blood sugars 3-4 times daily 180 Each 5 08/01/20 18 Active insulin aspart (NOVOLOG FLEXPEN) 100 UNIT/ML SOPN Inject 18 units breakfast, 10 units with lunch and 20 units with dinner plus sliding scale up to 100 units per day 10 Pre-filled Pen Syringe Dosing Unit 5 08/24/20 18 Active Blood Glucose Monitoring Suppl (ACCU-CHEK HARRIS PLUS) w/Device KIT Use to test sugar 3-4 times daily. 1 Kit 0 08/30/20 18 Active Glucose Blood (ACCU-CHEK HARRIS PLUS) [...] to 59.9 in adult ([facility]),Hypoxemia,OS A (obstructive sleep apnea),HTN, goal below 130/80 Take 1 Tab by mouth daily. 31 Tab 5 11/02/19 19 Active Insulin Degludec (TRESIBA FLEXTOUCH) 200 UNIT/ML SOPN Inject up to 160 units subcutaneously once daily as directed 9 mL 5 11/22/19 19 Active insulin aspart (NOVOLOG FLEXPEN) 100 UNIT/ML SOPN inject 15 units with breakfast, 10 units with lunch and 18 units with dinner plus sliding scale up to 80 units per day. 15 mL 4 12/02/19 19 Active DULoxetine (CYMBALTA) 60 MG CPEPIndications:Fi bromyalgia,Moderat e episode of recurrent major depressive disorder (HCC),Primary osteoarthritis of both knees Take 1 Cap by mouth daily. Do not cut, crush or chew 90 Cap 5 12/19/19 19 Active traMADol (ULTRAM) 50 MG Tablet Take 1 Tab by mouth every 6 hours as needed for Pain. 30 Tab 0 12/19/19 19 Active metoprolol tartrate (LOPRESSOR) 25 MG TabletIndications: HTN, goal below 130/80,Acute diastolic congestive heart failure (HCC),Body mass index (BMI) of 50.0 to 59.9 in adult ([facility]),Hypoxemia,OS A (obstructive sleep apnea),HTN, goal below 140/80 Take 1 Tab by mouth 2 times a day. 180 Tab 3 01/02/20 19 Active gabapentin (NEURONTIN) 300 MG CapsuleIndications :Type 2 diabetes mellitus with hemoglobin A1c goal of 7.0%-8.0% ([facility]) Take 1 Cap by mouth 3 times a day. 270 Cap 5 01/02/20 19 Active spironolactone (ALDACTONE) 25 MG Tablet Take 0.5 Tabs by mouth daily. 45 Tab 5 01/13/20 19 Active Vitamin D, Ergocalciferol, 69923 units CapsuleIndications :Vitamin D deficiency Take one capsule by mouth once a week 13 Cap 0 01/14/20 19 Active cefdinir (OMNICEF) 300 MG CapsuleIndications :UTI symptoms Take 1 Cap by mouth every 12 hours for 7 days. For 10 days. 14 Cap 0 01/24/20 19 019 Active furosemide (LASIX) 80 MG Tablet Take 1 Tab by mouth 2 times a day. Med was increased during hospitalization 180 Tab 3 01/27/20 19 Active furosemide (LASIX) 80 MG Tablet Take 80 mg by mouth 2 times a day. Med was increased during hospitalization 0 019 Discontinued documented as of this encounter (statuses as of 01/26/2019) Active Problems Problem Noted Date Impetigo 09/27/2018 Lumbar radiculopathy 09/27/2018 Mild episode [...] as of this encounter (statuses as of 01/26/2019) Resolved Problems Problem Noted Date Resolved Date [...] as of this encounter (statuses as of 01/26/2019) Immunizations Name Dates Previously Given Next Due Pneumococcal Polysaccharide PPV23 (Pneumovax) 08/22/2009,06/15/2006 Seasonal Influenza, Quadriva lent, No Preserve, 6 Mons & Above, IM 06/12/2018,07/14/2017 Seasonal Influenza, Quadriva lent, No Preserve, IM 06/24/2016,07/24/2015 Seasonal Influenza, Trivalen t, with Preserve, 3yr & Above, Split 06/13/2014,07/07/2012,06/28/2011,,08/01/2009,07/04/2008,2006,10/19/2006,08/07/2004, 2 Varicella Zoster Vaccine (Adult) 12/11/2015 documented as [...] encounter Miscellaneous Notes * Telephone Encounter - Amadou Galeana MD - 01/26/2019 10:15 AM EDT Signed Prescriptions: Disp Refills furosemide (LASIX) 80 MG Tablet 180 Tab3 Sig: Take 1 Tab by mouth 2 times a day. Med was increased during hospitalization Authorizing Provider: AMADOU GALEANA * Telephone Encounter - SlezaMarilee victor CPhT - 01/26/2019 9:05 AM EDT Medication is listed as "Historical". Pt advised of the current dosage, directions, and qty that they are normally prescribed, as reflected in the pending order below. Please review and approve if appropriate. Pending Prescriptions: Disp Refills furosemide (LASIX) 80 MG Tablet Sig: Take 1 Tab by mouth 2 times a day. Med was increased during hospitalization Last Office Visit: 01/01/2019 Next Office Visit: 02/26/2019 Scheduled Provider(s): Kevin Whiteside DO If no future appointments scheduled, and last appointment is greater than a year ago, please schedule patient for a follow-up appointment Last date the medication was ordered: Historical Patient Phone Numbers Labs: Lab Results Component Value Date/Time CREAT 1.6 (H) 01/12/2019 04:01 PM POTASSIUM 5.1 01/12/2019 04:01 PM TSH 3.14 05/01/2018 09:12 AM LDLCALC 111 08/01/2018 08:29 AM LDLDIRECT 109 07/14/2017 12:35 PM ALT 23 10/26/2018 09:39 AM HGBA1C 9.5 (H) 09/27/2018 01:48 PM documented in this encounter Plan of Treatment Upcoming Encounters Date Type Specialty Care Team Description 01/26/2019 [facility] [address] [place] [address] 02/23/2019 Office Visit Sleep Disorders Celsa Tafoya CRNP [address] [place] [address] [phone] 02/26/2019 Office Visit Family Medicine Kevin Whiteside DO [address] [place] [address] [phone] 02/28/2019 Office Visit Gynecology Obstetrics Alvina Hi CNM [address] [place], [place] [address] [address] [phone] 03/14/2019 Office Visit Cardiology Rey Woodall MD [address] [place] [address] [phone] 05/04/2019 Office Visit Sleep Disorders Celsa Tafoya CRNP [address] [place] [address] [phone] Health Maintenance Due Date Last Done Comments DIABETES-EYE EXAM 02/24/2011 02/24/2010 (Do ne elsewhere), 12/18/2009, 02/18/2008 (Done elsewhere) PAP SMEAR-EVERY 3 YRS,AGES 21-65 05/11/2016 05/11/2013, 03/01/2008, 10/19/2006, Additional history exists CKD PHOS USE SMARTSET 71509 12/29/2018 04/0 01/2018, 08/26/2009, 08/25/2009, Additional history exists DIABETES-HGBA1C EVERY 6 MONTHS 03/27/2019 09/27/2018, 05/01/2018, 12/29/2017, Additional history exists Yearly B-12 05/16/2019 05/16/2018 BREAST CANCER SCREENING DISCUSSION YEARLY AGES 40-75 06/23/2019 06/23/2018, 05/09/2015, 07/12/2014, Additional history exists CKD GFR USE SMARTSET 55470 07/14/201901/12, 12/23/2018, 12/18/2018, Additional history exists CKD HGB USE SMARTSET 33538 12/24/201912/23, 12/08/2018, 06/06/2018, Additional history exists DIABETES-FOOT [...] filedocumented as of this encounter Advance Directives Patient has advance care planning documents, and code status on file. For more information, please contact: [place] [phone] Latest Code Status on File Code Status [...]
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
--- OUTSIDE RECORDS SUMMARY | 2023-06-01 05:51 | External Medical Summary | Summary of Care ---
Author Name Unknown Organization [place] [address] Care Team Providers Care Information Technology Professor Name Role Phone Kevin Whiteside Primary Care Provider Reason for Visit * Reason Comments case management Encounter Details Date Type Department Care Team Description 01/30/2019 Telephone Internal Medicine [address] [address] Frances Nicholson RN [address] [place] [address] case management Allergies Active Allergy Reactions Severity Noted Date Comments Heparin 09/04/2009 Heparin Induced Thrombocytopenia Empagliflozin Other (Please comment) Medium 05/17/2018 3 yeast infections in 6 weeks after starting Morphine And Related 09/16/1997 Hallucinations Tetanus Toxoid Other (Please comment) 06/15/2011 Passed out documented as of this encounter (statuses as of 01/30/2019) Medications Medication Sig Dispensed Refills Start Date [...] other meds 90 Tab 5 8 Active levothyroxine (LEVOXYL) 25 MCG TabletIndications:P ostsurgical hypothyroidism TAKE ONE TABLET BY MOUTH IN THE MORNING AT LEAST 30 MINUTES PRIOR TO BREAKFAST OR OTHER MEDS 90 Tab 1 8 Active liraglutide (VICTOZA) 18 MG/3ML SOPNIndications:DM [...] for Pain. 30 Tab 0 9 Active metoprolol tartrate (LOPRESSOR) 25 MG TabletIndications:H TN, goal below 130/80,Acute diastolic congestive heart failure ([facility]),Body mass index (BMI) of 50.0 to 59.9 in adult ([facility]),Hypoxemia,ELISSA (obstructive sleep apnea),HTN, goal below 140/80 Take 1 Tab by mouth 2 times a day. 180 Tab 3 9 Active gabapentin (NEURONTIN) 300 MG CapsuleIndications: Type 2 diabetes mellitus with hemoglobin A1c goal of 7.0%-8.0% ([facility]) Take 1 Cap by mouth 3 times a day. 270 Cap 5 9 Active spironolactone (ALDACTONE) 25 MG Tablet Take 0.5 Tabs by mouth daily. 45 Tab 5 9 Active Vitamin D, Ergocalciferol, 06709 units CapsuleIndications: Vitamin D deficiency Take one capsule by mouth once a week 13 Cap 0 9 Active cefdinir (OMNICEF) 300 MG CapsuleIndications: UTI symptoms Take 1 Cap by mouth every 12 hours for 7 days. For 10 days. 14 Cap 0 9 01/31/20 19 Active furosemide (LASIX) 80 MG Tablet Take 1 Tab by mouth 2 times a day. Med was increased during hospitalization 180 Tab 3 9 Active Blood Glucose Monitoring Suppl (SmuleUCH ULTRA 2) w/Device KIT Use to test BG values 1 Kit 0 9 Active insulin aspart (NOVOLOG FLEXPEN) 100 UNIT/ML SOPN inject 25 units with breakfast, 20 units with lunch and 30 units with dinner plus sliding scale up to 150 units per day. 30 mL 4 9 Active documented as of this encounter (statuses as of 01/30/2019) Active Problems Problem Noted Date Impetigo 09/27/2018 [...] 10/14/2014 Overview: ICD-10 update of inactive term [place] filter in place 08/19/2014 History of pulmonary [...] as of this encounter (statuses as of 01/30/2019) Resolved Problems Problem Noted Date Resolved Date [...] as of this encounter (statuses as of 01/30/2019) Immunizations Name Dates Previously Given Next Due [...] Telephone Encounter - Frances Nicholson RN - 01/30/2019 10:17 AM EDT Call placed to home number listed in Epic. No answer, left message for return call on VM -[facility] scale readings continue to not come thru Requested LES visit to trouble shoot Frances Nicholson RN, [facility] Angle Shear Set Up Operator [phone] documented in this encounter Plan of Treatment Upcoming Encounters Date Type Specialty Care Team Description 02/23/2019 Office Visit Sleep Disorders Celsa Tafoya CRNP [address] [place] [address] [phone] 02/26/2019 Office Visit Family Medicine Kevin Whiteside DO [address] [place] [address] [phone] 02/28/2019 Office [facility]st[facility] [place] [address] [phone] 03/14/2019 Pharmacy Pharmacy [facility] [place] [address] [place] [address] 03/14/2019 Office Visit Cardiology Rey Woodall MD [address] [place] [address] [phone] 05/04/2019 Office Visit Sleep Disorders Celsa Tafoya CRNP [address] [place] [address] [phone] Health Maintenance Due Date Last Done Comments DIABETES-EYE EXAM 02/24/2011 02/24/2010 (Do ne elsewhere), 12/18/2009, 02/18/2008 (Done elsewhere) PAP SMEAR-EVERY 3 YRS,AGES 21-65 05/11/2016 05/11/2013, 03/01/2008, 10/19/2006, Additional history exists CKD PHOS USE SMARTSET 29384 12/29/2018 04/0 01/2018, 08/26/2009, 08/25/2009, Additional history exists DIABETES-HGBA1C EVERY 6 MONTHS 03/27/2019 09/27/2018, 05/01/2018, 12/29/2017, Additional history exists Yearly B-12 05/16/2019 05/16/2018 BREAST CANCER SCREENING DISCUSSION YEARLY AGES 40-75 06/23/2019 06/23/2018, 05/09/2015, 07/12/2014, Additional history exists CKD GFR USE SMARTSET 22758 07/14/201901/12, 12/23/2018, 12/18/2018, Additional history exists CKD HGB USE SMARTSET 47623 12/24/201912/23, 12/08/2018, 06/06/2018, Additional history exists DIABETES-FOOT [...] For more information, please contact: [place] [phone] Latest Code Status on File Code Status [...]
--- OUTSIDE RECORDS SUMMARY | 2023-06-01 05:51 | External Medical Summary | Summary of Care ---
Author Name Unknown Organization [place] [address] Care Team Providers Care Fusing Furnace Loader Name Role Phone Kevin Whiteside DO Primary Care Provider Reason for Visit * Reason Comments Follow Up 3 month return, dizz iness with position changes, 2 falls since last OV Encounter Details Date Type Department Care Team Description 02/26/2019 Office Visit Family [facility] [address] [place] [address] Kevin Whiteside DO [address] [place] [address] [phone] Type 2 diabetes mellitus with hemoglobin A1c goal of 7.0%-8.0% ([facility])*; Uncontrolled type 2 diabetes mellitus with stage 3 chronic kidney disease, with long-term current use of insulin ([facility]); Chronic diastolic congestive heart failure ([facility]); Body mass index (BMI) of 50.0 to 59.9 in adult ([facility]); Other atherosclerosis of [place] arteries of extremities, left leg ([facility]); Foot injury, left, initial encounter; Poor balance; Restless legs syndrome Allergies Active Allergy Reactions [...] e episode of recurrent major depressive disorder ([facility]),Primary osteoarthritis of both knees Take [...] 5 01/13/20 19 Active Vitamin D, Ergocalciferol, 63647 units CapsuleIndications :Vitamin D deficiency Take one capsule by mouth once a week 13 Cap 0 01/14/20 19 Active furosemide (LASIX) 80 MG Tablet Take 1 Tab by mouth 2 times a day. Med was increased during hospitalization 180 Tab 3 01/27/20 19 Active Blood Glucose Monitoring Suppl (SmartLink Radio NetworksTOUCH ULTRA 2) w/Device KIT Use to [...] day. 90 Tab 3 02/27/20 19 Active rOPINIRole (REQUIP) 1 MG TabletIndications: Restless legs syndrome Take 1 Tab by mouth at bedtime. 90 Tab 4 08/01/20 18 019 Discontinued documented as of this encounter (statuses as of 02/26/2019) Active Problems Problem Noted Date Other atherosclerosis of [place] arteries of extremities, left leg 02/26/2019 Impetigo [...] 10/14/2014 Overview: ICD-10 update of inactive term [place] filter in place 08/19/2014 History of [...] Sign Reading Time Taken Comments Blood Pressure 146/68 02/26/2019 9:24 AM EDT Pulse 106 02/26/2019 9:24 AM EDT Temperature 36.5 C (97.7 F) 02/26/2019 9:24 AM ED T Respiratory Rate 28 02/26/2019 9:24 AM EDT Oxygen Saturation 94% 02/26/2019 9:24 AM EDT Inhaled Oxygen Concentration - - Weight 156 kg (344 lb) 02/26/2019 9:24 AM EDT Height - - Body Mass Index 57.24 01/23/2019 3:50 PM EDT documented in this encounter Progress Notes * Kevin Whiteside, DO - 02/26/2019 9:29 AM EDT Nursing Notes: Izabela Crump, CHUYITA 02/26/19 0929 Signed The patient has been properly identified by confirmation of name and date of . Chief Complaint Patient presents with Follow Up 3 month return, dizziness with position changes, 2 falls since last OV ASSESSMENT/PLAN: 1. Type 2 diabetes mellitus with hemoglobin A1c goal of 7.0%-8.0% ([facility]) Uncontrolled, will f/u with MTM today and will follow along with management and titration. Suspect she will improve in balance and vision as BG levels improve. 2. Uncontrolled type 2 diabetes mellitus with stage 3 chronic kidney disease, with long-term current use of insulin ([facility]) Stable - follow with labs prior to next visit Hydrating well, urine output constant, no increase in edema 3. Chronic diastolic congestive heart failure ([facility]) Stable from exam standpoint, lungs clear, pulse ox ok, LE edema stable. 4. Body mass index (BMI) of 50.0 to 59.9 in adult ([facility]) Educated on the risk her weight is causing her, and the ongoing worsening of her mobility, patient to continue to work on diet and weight loss. 5. Other atherosclerosis of [place] arteries of extremities, left leg ([facility]) Not exerting herself enough to experience claudication sx, but may as she moves and begins more exercise, consider PT 6. Foot injury, left, initial encounter On recent trip and fall, stubbed great toe of left foot, no ecchymosis but still having tenderness to palpation of the bone. Will get x-rays to further evaluate. - XR FOOT 3 OR MORE VIEWS 7. Poor balance Will evaluate but suspect that this is some underlying autonomic neuropathy in regards to her increased blood sugars. Will also check lab work on next set of lab work to rule out underlying B12 or folate deficiency. - VITAMIN B12; Future - FOLIC ACID; Future 8. Restless legs syndrome Uncontrolled restless leg syndrome, discussed the pros and cons of going up on medication, will keep a close eye on her but is increase to 2 mg. - rOPINIRole (REQUIP) 2 MG Tablet; Take 1 Tab by mouth 3 times a day. Dispense: 90 Tab; Refill: 3 HPI: Stephanie Camp is a 63 year old female who: Presents today in f/u and to address her worsening vision and balance. Has corresponded with higherblood sugars, for which she is scheduled to f/u with Rose Barton today as well for further titration of her diabetic regimen. Patient reports inconsistent dietary compliance. Activity level low. Her new apt will be on one level which will help with activity without fall risk. Weight somewhat stable, but up a few pounds. Denies SOB, CP. Wasn't able to complete sleep study due to poor sleep. Concerned that her restless leg syndrome is uncontrolled. ROS: CONSTITUTIONAL: no weight loss, no fevers, no sweats HEENT: no change in vision or hearing, no congestion, no sore throat CARDIAC: no chest pain, no palpitations, no orthopnea, no AVENDAÑO, no syncope RESP: no wheezing and no SOB GI: no pain, no NVDC, no melena/hematochezia SKIN: no rashes MSK: Great toe of left roping machine tender : no dysuria or discharge NEURO: no memory loss, no numbness, some imbalance and dizziness PSYCH: no SI/HI PHYSICAL EXAMINATION: BP 146/68 | Pulse 106 | Temp (Src) 97.7 (Tympanic) | Resp 28 | Wt 344 lbs (156.037kg) | BMI 57.24 kg/m | BSA 2.67 m | SaO2 94% | LMP 03/11/2003 GENERAL: Morbidly obese, alert, healthy, no distress, well nourished and [...] gait normal, reflexes normal and symmetric MSK: Tenderness to palpation of great toe of the left foot at the metatarsophalangeal joint Patient Active Problem List Diagnosis Code Primary [...] use of insulin ([facility]) E11.22, E11.65, N18.3, Z79.4 Body mass index (BMI) of 50.0 to 59.9 in adult ([facility]) Z68.43 Controlled substance agreement signed Z79.899 Chronic diastolic congestive heart failure ([facility]) I50.32 Thoracic back pain M54.6 Mild episode of recurrent major depressive disorder ([facility]) F33.0 Impetigo L01.00 Lumbar radiculopathy M54.16 Other atherosclerosis of [place] arteries of extremities, left leg ([facility]) I70.292 Past Medical History: Diagnosis Date [...] DANNY HOLDER at [facility] KNEE ARTHROSCOPY/DEBRIDEMENT 07/[address] PERMANENT GASTROSTOMY TUBE 09/06/09 GASTROSTOMY WITH CONSTUCTION GASTRIC TUBE performed by AMADOU NUNEZ at [facility] REMOVAL OF THYROID GLAND 06/15/2011 THYROIDECTOMY INCLUDING SUBSTERNAL THYROID CERVICAL APPROACH performed by DANNY HOLDER at [facility] REMOVE GALLBLADDER 09/06/09 CHOLECYSTECTOMY performed by AMADOU NUNEZ at [facility] REPAIR RECURRENT INCISIONAL HERNIA 1998 REVISION OF COLOSTOMY, SIMPLE 1998 SUTURE, LARGE INTESTINE W/COLOSTOMY 1996 perforation R colon with colostomy VENA CAVA FILTER/LIGATION/CLIP 08/19/09 Frank filter placement through the right femoral 08/19/[address] Lerma at [facility] Current Outpatient Medications Medication Sig Dispense Refill [...] day. 30 mL 4 Vitamin D, Ergocalciferol, 86399 units Capsule Take one capsule by mouth [...] (Please comment) Passed out Kevin Whiteside DO [facility] [address] [facility] [address] (This note was completed using the dictation program Fluency Direct. As such, there may be misspellings, word substitutions, or other variations that should not change the essence of the clinical content of this encounter note.If there is need for further clarification, please direct questions to the provider listed above.) documented in this encounter Nursing Notes * Izabela Crump LPN - 02/26/2019 9:24 AM EDT The patient has been properly identified by confirmation of name and date of . Chief Complaint Patient presents with Follow Up 3 month return, dizziness with position changes, 2 falls since last OV documented in this encounter Plan of Treatment Upcoming Encounters Date Type Specialty Care Team Description 02/26/2019 [address] [address] Uncontrolled type 2 diabetes mellitus with stage 3 chronic kidney disease, with long-term current use of insulin (HCC)*; Type 2 diabetes mellitus with hemoglobin A1c goal of 7.0%-8.0% (HCC) 02/28/2019 Office Visit Gynecology Obstetrics Alvina Hi, [place] [address] [facility] [place] [address] [phone] 03/14/2019 Pharmacy Pharmacy [facility] [place] [address] [place] [address] 03/14/2019 Office Visit Cardiology Rey Woodall MD [address] [place] [address] [phone] 04/24/2019 Office Visit Sleep Disorders Celsa Tafoya CRNP [address] [place] [address] [phone] Pending Results Name Type Priority Associated Diagnoses Date /Time XR FOOT 3 OR MORE VIEWS Medical Imaging Routine Foot injury, left, initial encounter 02/26/2019 9:57 AM EDT Scheduled Orders Name Type Priority Associated Diagnoses Orde r Schedule VITAMIN B12 Lab Routine Poor balance Expected: 02/26/2019 (Approximate), Expires: 02/26/2020 FOLIC ACID Lab Routine Poor balance Expected: 02/26/2019 (Approximate), Expires: 02/26/2020 LIPID PANEL WITH DIRECT LDL IF TG ABOVE 150 MG/DL Lab Routine Type 2 diabetes mellitus with hemoglobin A1c goal of 7.0%-8.0% (HCC) Uncontrolled type 2 diabetes mellitus with stage 3 chronic kidney disease, with long-term current use of insulin (HCC) Expected: 02/26/2019, Expires: 02/27/2020 CBC/DIFF WITH REFLEX WORKUP OF ANEMIA Lab Routine Type 2 diabetes mellitus with hemoglobin A1c goal of 7.0%-8.0% (HCC) Uncontrolled type 2 diabetes mellitus with stage 3 chronic kidney disease, with long-term current use of insulin (HCC) Expected: 02/26/2019 (Approximate), Expires: 02/27/2020 HEMOGLOBIN A1C Lab Routine Type 2 diabetes mellitus with hemoglobin A1c goal of 7.0%-8.0% (HCC) Uncontrolled type 2 diabetes mellitus with stage 3 chronic kidney disease, with long-term current use of insulin (HCC) Expected: 02/26/2019 (Approximate), Expires: 02/27/2020 BASIC METAB PANEL, BMP Lab Routine Type 2 diabetes mellitus with hemoglobin A1c goal of 7.0%-8.0% (HCC) Uncontrolled type 2 diabetes mellitus with stage 3 chronic kidney disease, with long-term current use of insulin (HCC) Expected: 02/26/2019 (Approximate), Expires: 02/27/2020 TSH WITH FREE T4 IF INDICATED Lab Routine Type 2 diabetes mellitus with hemoglobin A1c goal of 7.0%-8.0% (HCC) Uncontrolled type 2 diabetes mellitus with stage 3 chronic kidney disease, with long-term current use of insulin (HCC) Expected: 02/26/2019 (Approximate), Expires: 02/26/2020 Health Maintenance Due Date Last Done Comments DIABETES-EYE EXAM 02/24/2011 02/24/2010 (Do ne elsewhere), 12/18/2009, 02/18/2008 (Done elsewhere) PAP SMEAR-EVERY 3 YRS,AGES 21-65 05/11/2016 05/11/2013, 03/01/2008, 10/19/2006, Additional history exists CKD PHOS USE SMARTSET 35375 12/29/2018 04/0 01/2018, 08/26/2009, 08/25/2009, Additional history exists DIABETES-HGBA1C EVERY 6 MONTHS 03/27/2019 09/27/2018, 05/01/2018, 12/29/2017, Additional history exists Yearly B-12 05/16/2019 05/16/2018 BREAST CANCER SCREENING DISCUSSION YEARLY AGES 40-75 06/23/2019 06/23/2018, 05/09/2015, 07/12/2014, Additional history exists CKD GFR USE SMARTSET 75760 07/14/201901/12, 12/23/2018, 12/18/2018, Additional history exists CKD HGB USE SMARTSET 75966 12/24/201912/23, 12/08/2018, 06/06/2018, Additional history exists DIABETES-FOOT [...] long-term current use of insulin (HCC) Chronic diastolic congestive heart failure (HCC) Chronic diastolic heart failure Body mass index (BMI) of 50.0 to 59.9 in adult (HCC) Other atherosclerosis of [place] arteries of extremities, left leg (HCC) Foot injury, left, initial encounter Poor balance Other symptoms involving nervous and musculoskeletal systems Restless legs syndrome Restless legs syndrome (RLS) documented in this encounter Advance Directives Documents on File Type Date Recorded Patient Automation And Control Engineer Expl anation Advanced Directive 08/22/2009 12:00 [...]
--- OUTSIDE RECORDS SUMMARY | 2023-06-01 05:51 | External Medical Summary | Summary of Care ---
Author Name Unknown Organization [place] [address] Care Team Providers Care Blasting Contract Man Name Role Phone Kevin Whiteside Primary Care Provider Reason for Visit * Reason Comments Encounter Created in Error Encounter Details Date Type Department Care Team Description 01/30/2019 Telephone Internal Medicine [address] [address] Frances Nicholson RN [address] [place] [address] Encounter Created in Error Allergies Active Allergy [...] goal below 130/80,Acute diastolic congestive heart failure ([facility]),Body mass index (BMI) of 50.0 to 59.9 in adult ([facility]),Hypoxemia,ELISSA (obstructive sleep apnea),HTN, goal below 140/80 Take [...] Tab 5 9 Active Vitamin D, Ergocalciferol, 98582 units CapsuleIndications: Vitamin D deficiency Take one [...] 3 9 Active Blood Glucose Monitoring Suppl (SpiderSuiteUCH ULTRA 2) w/Device KIT Use to test [...] 10/14/2014 Overview: ICD-10 update of inactive term [place] filter in place 08/19/2014 History of [...] Disorders Celsa Tafoya CRNP [address] [place] [address] [phone] 02/26/2019 Office Visit Family Medicine Kevin Whiteside DO [address] [place] [address] [phone] 02/28/2019 Office Visit Gynecology Obstetrics Alvina Hi [address] [place] [address] [phone] 03/14/2019 Pharmacy Pharmacy [facility] [place] [address] [place] [address] 03/14/2019 Office Visit Cardiology Rey Woodall MD [address] [place] [address] [phone] 05/04/2019 Office Visit Sleep Disorders Celsa Tafoya CRNP [address] [place] [address] [phone] Health Maintenance Due Date Last Done Comments DIABETES-EYE EXAM 02/24/2011 02/24/2010 (Do ne elsewhere), 12/18/2009, 02/18/2008 (Done elsewhere) PAP SMEAR-EVERY 3 YRS,AGES 21-65 05/11/2016 05/11/2013, 03/01/2008, 10/19/2006, Additional history exists CKD PHOS USE SMARTSET 09254 12/29/2018 04/0 01/2018, 08/26/2009, 08/25/2009, Additional history exists DIABETES-HGBA1C EVERY 6 MONTHS 03/27/2019 09/27/2018, 05/01/2018, 12/29/2017, Additional history exists Yearly B-12 05/16/2019 05/16/2018 BREAST CANCER SCREENING DISCUSSION YEARLY AGES 40-75 06/23/2019 06/23/2018, 05/09/2015, 07/12/2014, Additional history exists CKD GFR USE SMARTSET 24493 07/14/201901/12, 12/23/2018, 12/18/2018, Additional history exists CKD HGB USE SMARTSET 61812 12/24/201912/23, 12/08/2018, 06/06/2018, Additional history exists DIABETES-FOOT [...] For more information, please contact: [place] [id number] Latest Code Status on File Code Status [...]
--- OUTSIDE RECORDS SUMMARY | 2023-06-01 05:51 | External Medical Summary | Summary of Care ---
Author Name Unknown Organization [place] [address] Care Team Providers Care Delivery Specialist Name Role Phone Kevin Whiteside DO Primary Care Provider Reason for Visit * Reason Comments eRx-Medication Refill Encounter Details Date Type Department Care Team Description 02/02/2019 Refill [facility] [address] [facility] [address] Kevin Whiteside DO [address] [facility] [place] [address] POSTSURGICAL HYPOTHYROID Allergies Active Allergy Reactions Severity Noted Date Comments Heparin 09/04/2009 Heparin Induced Thrombocytopenia Empagliflozin Other (Please comment) Medium 05/17/2018 3 yeast infections in 6 weeks after starting Morphine And Related 09/16/1997 Hallucinations Tetanus Toxoid Other (Please comment) 06/15/2011 Passed out documented as of this encounter (statuses as of 02/02/2019) Medications Medication Sig Dispensed Refills Start Date [...] 50.0 to 59.9 in adult ([facility]),Hypoxemia,OS A (obstructive sleep apnea),HTN, goal below 140/80 [...] 5 01/13/20 19 Active Vitamin D, Ergocalciferol, 64515 units CapsuleIndications :Vitamin D deficiency Take one capsule by mouth once a week 13 Cap 0 01/14/20 19 Active furosemide (LASIX) 80 MG Tablet Take 1 Tab by mouth 2 times a day. Med was increased during hospitalization 180 Tab 3 01/27/20 19 Active Blood Glucose Monitoring Suppl (MicroinoxUCH ULTRA 2) w/Device KIT Use to test [...] MEDS 30 Tab 5 02/03/20 19 Active levothyroxine (LEVOXYL) 25 MCG TabletIndications: Postsurgical hypothyroidism TAKE ONE TABLET BY MOUTH IN THE MORNING AT LEAST 30 MINUTES PRIOR TO BREAKFAST OR OTHER MEDS 90 Tab 1 08/01/20 18 019 Discontinued documented as of this encounter (statuses as of 02/02/2019) Active Problems Problem Noted Date Impetigo 09/27/2018 [...] 10/14/2014 Overview: ICD-10 update of inactive term [place] filter in place 08/19/2014 History of pulmonary [...] as of this encounter (statuses as of 02/02/2019) Resolved Problems Problem Noted Date Resolved Date [...] as of this encounter (statuses as of 02/02/2019) Immunizations Name Dates Previously Given Next Due [...] Miscellaneous Notes * Telephone Encounter - Gin Chappell MD - 02/02/2019 11:31 AM EDT Signed Prescriptions: Disp Refills levothyroxine (LEVOXYL) 25 MCG Tablet 30 Tab 5 Sig: TAKE ONE TABLET BY MOUTH IN THE MORNING AT LEAST 30 MINUTES PRIOR TO BREAKFAST OR OTHER MEDS Authorizing Provider: GIN CHAPPELL * Telephone Encounter - Mattie Hilario LPN - 02/02/2019 10:16 AM EDT Pending Prescriptions: Disp Refills levothyroxine (LEVOXYL) 25 MCG Tablet [Ph*30 Tab 5 Sig: TAKE ONE TABLET BY MOUTH IN THE MORNING AT LEAST 30 MINUTES PRIOR TO BREAKFAST OR OTHER MEDS * Telephone Encounter - Jael Holly LPN - 02/02/2019 9:22 AM EDT Pending Prescriptions: Disp Refills levothyroxine (LEVOXYL) 25 MCG Tablet [Ph*30 Tab 5 Sig: TAKE ONE TABLET BY MOUTH IN THE MORNING AT LEAST 30 MINUTES PRIOR TO BREAKFAST OR OTHER MEDS * Telephone Encounter - Jael Holly LPN - 02/02/2019 9:22 AM EDT Last Office Visit: 01/01/2019 Pending Prescriptions: Disp Refills levothyroxine (LEVOXYL) 25 MCG Tablet [Ph*30 Tab 5 Sig: TAKE ONE TABLET BY MOUTH IN THE MORNING AT LEAST 30 MINUTES PRIOR TO BREAKFAST OR OTHER MEDS Next Office Visit: 02/26/2019 Scheduled Provider(s): Kevin Whiteside DO TSH Results: TSH(uIU/mL) Nessa Dt/Tm Resulted Value Status 05/01/18 9:12A 05/01/18 3.14 FINAL 03/03/17 12:38P 03/03/17 0.60 FINAL 03/25/16 2:13P 03/26/16 1.87 FINAL documented in this encounter Plan of Treatment Upcoming Encounters Date Type Specialty Care Team Description 02/23/2019 Office Visit Sleep Disorders Celsa Tafoya CRNP [address] [place] [address] [phone] 02/26/2019 Office Visit Family Medicine Kevin Whiteside, [address] [place] [address] [phone] 02/28/2019 Office Visit Gynecology Obstetrics Alvina Hi, [facility] [address] [facility] [place] [address] [phone] 03/14/2019 Pharmacy Pharmacy [facility] [address] [place] [address] 03/14/2019 Office Visit Cardiology Rey Woodall MD [address] [place] [address] [phone] 05/04/2019 Office Visit Sleep Disorders eClsa Tafoya CRNP [address] [place] [address] [phone] Health Maintenance Due Date Last Done Comments DIABETES-EYE EXAM 02/24/2011 02/24/2010 (Do ne elsewhere), 12/18/2009, 02/18/2008 (Done elsewhere) PAP SMEAR-EVERY 3 YRS,AGES 21-65 05/11/2016 05/11/2013, 03/01/2008, 10/19/2006, Additional history exists CKD PHOS USE SMARTSET 41134 12/29/2018 04/01/2018, 08/26/2009, 08/25/2009, Additional history exists DIABETES-HGBA1C EVERY 6 MONTHS 03/27/2019 09/27/2018, 05/01/2018, 12/29/2017, Additional history exists Yearly B-12 05/16/2019 05/16/2018 BREAST CANCER SCREENING DISCUSSION YEARLY AGES 40-75 06/23/2019 06/23/2018, 05/09/2015, 07/12/2014, Additional history exists CKD GFR USE SMARTSET 98658 07/14/201901/12, 12/23/2018, 12/18/2018, Additional history exists CKD HGB USE SMARTSET 15979 12/24/201912/23, 12/08/2018, 06/06/2018, Additional history exists DIABETES-FOOT [...] hypothyroidism documented in this encounter Advance Directives Patient has advance care planning documents, and code status on file. For more information, please contact: [place] [id number] Latest Code Status on File Code Status [...]
--- OUTSIDE RECORDS SUMMARY | 2023-06-01 05:51 | External Medical Summary | Summary of Care ---
Author Name Unknown Organization [place] [address] Care Team Providers Care Clinical Applications Manager Name Role Phone Kevin Whietside Primary Care Provider Reason for Visit * Reason Comments Dosage Adjustment In Person (Anticoag Cl inic) Diabetes Follow-Up Encounter Details Date Type Department Care Team Description 01/26/2019 Pharmacy Pharm[facility] [address] [facility] [place] [address] Uncontrolled type 2 diabetes mellitus with stage 3 chronic kidney disease, with long-term current use of insulin ([facility])*; Type 2 diabetes mellitus with hemoglobin A1c goal of 7.0%-8.0% ([facility]) Allergies Active Allergy Reactions Severity Noted [...] to 59.9 in adult ([facility]),Hypoxemia,OS A (obstructive sleep apnea),HTN, goal below 130/80 [...] to 59.9 in adult ([facility]),Hypoxemia,OS A (obstructive sleep apnea),HTN, goal below 140/80 [...] 5 01/13/20 19 Active Vitamin D, Ergocalciferol, 33809 units CapsuleIndications :Vitamin D deficiency Take one [...] 01/27/20 19 Active Blood Glucose Monitoring Suppl (ONETOUCH ULTRA 2) w/Device KIT Use to test BG values 1 Kit 0 01/27/20 19 Active insulin aspart (NOVOLOG FLEXPEN) 100 UNIT/ML SOPN inject 25 units with breakfast, 20 units with lunch and 30 units with dinner plus sliding scale up to 150 units per day. 30 mL 4 01/27/20 19 Active insulin aspart (NOVOLOG FLEXPEN) [...] 15 mL 4 12/02/19 19 019 Discontinued documented as of this [...] 10/14/2014 Overview: ICD-10 update of inactive term [place] filter in place 08/19/2014 History of pulmonary [...] this encounter Progress Notes * Rose Barton, [facility] - 01/26/2019 12:36 PM EDT Medication Therapy [...] Glucose Review: Patient currently tests blood glucose 3 time(s) daily Hypoglycemia: 1. Do you know [...] Cardiac Dyslipidemia Chronic diastolic congestive heart failure ([facility]) Mental Health ELLIE (generalized anxiety disorder) Mild episode of recurrent major depressive disorder ([facility]) Endocrine Postsurgical hypothyroidism Type 2 diabetes mellitus with hemoglobin A1c goal of 7.0%-8.0% ([facility]) Uncontrolled type 2 diabetes mellitus with stage 3 chronic kidney disease, with long-term current use of insulin ([facility]) Pulmonary Nocturnal hypoxemia ELISSA (obstructive sleep apnea) History of pulmonary embolus (PE) Vascular Venous insufficiency [place] filter in place Nephrology HTN, goal below 130/80 General Statin intolerance Abnormality of gait Controlled substance agreement signed Neurology Restless legs syndrome Gastrointestinal Gastroesophageal reflux disease with esophagitis Body mass index (BMI) of 50.0 to 59.9 in adult ([facility]) Dermatology Impetigo Review of patient's allergies indicates: [...] days. 14 Cap 0 Vitamin D, Ergocalciferol, 59670 units Capsule Take one capsule by mouth [...] (Freddy JOHNS Jr., et al., 2013) is: 11.2% [...] (mg/dL) 01/12/19 4:01P 01/12/19 9.3 F ALT(U/L) [facility] Dt/Tm Resulted Value Status 10/26/18 9:39A 10/26/18 [...] week(s) Next Office Visit: 03/14/2019 Scheduled Provider(s): [facility] Jer[place]ie Barton luis Clinical Pharmacist Medication Therapy Disease Management 01/26/2019, 12:36 PM documented in this encounter Plan of Treatment Upcoming Encounters Date Type Specialty Care Team Description 02/23/2019 Office Visit Sleep Disorders Celsa Tafoya CRNP [address] [place] [place] [address] [phone] 02/26/2019 Office Visit Family Medicine Kevin Whiteside DO [address] [address] [phone] 02/28/2019 Office Visit Gynecology Obstetrics Alvina Hi CNM [address] [place] [address] [place] [address] [phone] 03/14/2019 [facility] [place] [address] [place] [address] 03/14/2019 Office Visit Cardiology Rey Woodall MD [address] [place] [address] [phone] 05/04/2019 Office Visit Sleep Disorders Celsa Tafoya CRNP [address] [place] [address] [phone] Health Maintenance Due Date Last Done Comments DIABETES-EYE EXAM 02/24/2011 02/24/2010 (Do ne elsewhere), 12/18/2009, 02/18/2008 (Done elsewhere) PAP SMEAR-EVERY 3 YRS,AGES 21-65 05/11/2016 05/11/2013, 03/01/2008, 10/19/2006, Additional history exists CKD PHOS USE SMARTSET 84593 12/29/2018 04/0 01/2018, 08/26/2009, 08/25/2009, Additional history exists DIABETES-HGBA1C EVERY 6 MONTHS 03/27/2019 09/27/2018, 05/01/2018, 12/29/2017, Additional history exists Yearly B-12 05/16/2019 05/16/2018 BREAST CANCER SCREENING DISCUSSION YEARLY AGES 40-75 06/23/2019 06/23/2018, 05/09/2015, 07/12/2014, Additional history exists CKD GFR USE SMARTSET 06839 07/14/201901/12, 12/23/2018, 12/18/2018, Additional history exists CKD HGB USE SMARTSET 15759 12/24/201912/23, 12/08/2018, 06/06/2018, Additional history exists DIABETES-FOOT [...] (HCC) documented in this encounter Advance Directives Patient has advance care planning documents, and code status on file. For more information, please contact: [place] [phone] Latest Code Status on File Code Status [...]
--- OUTSIDE RECORDS SUMMARY | 2023-06-01 05:51 | External Medical Summary | Summary of Care ---
Author Name Unknown Organization [place] [address] Care Team Providers Care Medical Driver Name Role Phone Kevin Whiteside Primary Care Provider Reason for Visit * Reason Comments Test Results Lab Encounter Details Date Type Department Care Team Description [facility] [address] [place] [address] Francisco Wang PA-C [address] [facility] [address] [place] [address] Test Results Lab Allergies Active Allergy Reactions Severity Noted Date Comments Heparin 09/04/2009 Heparin Induced Thrombocytopenia Empagliflozin Other (Please comment) Medium 05/17/2018 3 yeast infections in 6 weeks after starting Morphine And Related 09/16/1997 Hallucinations Tetanus Toxoid Other (Please comment) 06/15/2011 Passed out documented as of this encounter (statuses as of 01/25/2019) Medications Medication Sig Dispensed Refills Start Date [...] times daily 180 Each 5 8 Active insulin aspart (NOVOLOG FLEXPEN) 100 UNIT/ML SOPN Inject 18 units breakfast, 10 units with lunch and 20 units with dinner plus sliding scale up to 100 units per day 10 Pre-filled Pen Syringe Dosing Unit 5 8 Active Blood Glucose Monitoring Suppl (ACCU-CHEK HARRIS PLUS) w/Device KIT Use to test sugar 3-4 times daily. 1 Kit 0 8 Active Glucose Blood (ACCU-CHEK HARRIS PLUS) [...] [facility]),Hypoxemia,ELISSA (obstructive sleep apnea),HTN, goal below 130/80 Take 1 Tab by mouth daily. 31 Tab 5 9 Active Insulin Degludec (TRESIBA FLEXTOUCH) 200 UNIT/ML SOPN Inject up to 160 units subcutaneously once daily as directed 9 mL 5 9 Active insulin aspart (NOVOLOG FLEXPEN) 100 UNIT/ML SOPN inject 15 units with breakfast, 10 units with lunch and 18 units with dinner plus sliding scale up to 80 units per day. 15 mL 4 9 Active DULoxetine (CYMBALTA) 60 MG CPEPIndications:Fib [...] a day. 270 Cap 5 9 Active furosemide (LASIX) 80 MG Tablet Take 80 mg by mouth 2 times a day. Med was increased during hospitalization 0 Active spironolactone (ALDACTONE) 25 MG Tablet Take 0.5 Tabs by mouth daily. 45 Tab 5 9 Active Vitamin D, Ergocalciferol, 04882 units CapsuleIndications: Vitamin D deficiency Take one capsule by mouth once a week 13 Cap 0 9 Active cefdinir (OMNICEF) 300 MG CapsuleIndications: UTI symptoms Take 1 Cap by mouth every 12 hours for 7 days. For 10 days. 14 Cap 0 9 01/31/20 19 Active documented as of this encounter (statuses as of 01/25/2019) Active Problems Problem Noted Date Impetigo 09/27/2018 [...] 10/14/2014 Overview: ICD-10 update of inactive term [place] filter in place 08/19/2014 History of pulmonary [...] as of this encounter (statuses as of 01/25/2019) Resolved Problems Problem Noted Date Resolved Date [...] as of this encounter (statuses as of 01/25/2019) Immunizations Name Dates Previously Given Next Due [...] encounter Miscellaneous Notes * Telephone Encounter - Emily Bonilla TECH - 01/25/2019 9:14 AM EDT Outgoing call to patient. Verified name and . Informed patient of results. No questions. Done. * Telephone Encounter - Francisco Wang PA-C - 01/25/2019 8:55 AM EDT Can you please call pt? Please verify name & . Advise pt there is minimal bacteria in urine, no infection. Recommend finishing antibiotic if symptoms improving. If not, can stop. Recommend follow-up with primary care provider for persistent symptoms. Thank you! Francisco Wang PA-C [facility] [place] [address] [address] [facility] [id number] Results for orders placed or performed in visit on 01/23/19 SITE DIP,DIPSTICK ONLY([id number]) Result Value Ref Range COLOR, UA yellow yellow - clive CLARITY, UA clear clear - clear GLUCOSE, UA neg neg - neg BILIRUBIN, UA neg neg - neg KETONE, UA neg neg - neg SPECIFIC GRAVITY 1.005 1.003 - 1.030 BLOOD, UA neg neg - neg PH, UA 5.0 5.0 - 7.5 PROTEIN, UA neg neg - neg UROBILINOGEN, UA normal normal - normal NITRITE, UA neg neg - neg ESTERASE, UA neg neg - neg CULTURE QUANT URINE Result Value Ref Range SPECIMEN DESCRIPTION CLEAN CATCH URINE CULTURE LESS THAN 10,000 COLONIES/ML MIXED NORMAL MELISSA REPORT STATUS 01/24/2019 FINAL *Note: Due to a large number of results and/or encounters for the requested time period, some results have not been displayed. A complete set of results can be found in Results Review. documented in this encounter Plan of Treatment Upcoming Encounters Date Type Specialty Care Team Description 01/26/2019 Pharmacy Pharmacy [facility] Jeram[place] [address] [address] 02/23/2019 Office Visit Sleep Disorders Celsa Tafoya CRNP [address] [address] [phone] 02/26/2019 Office Visit Family Medicine Kevin Whiteside DO [address] [address] [phone] 02/28/2019 Office Visit Gynecology Obstetrics Alvina Hi [address] [place] [address] [phone] 03/14/2019 Office Visit Cardiology Rey Woodall MD [address] [address] [phone] 05/04/2019 Office Visit Sleep Disorders Celsa Tafoya CRNP [address] [address] [phone] Health Maintenance Due Date Last Done Comments DIABETES-EYE EXAM 02/24/2011 02/24/2010 (Do ne elsewhere), 12/18/2009, 02/18/2008 (Done elsewhere) PAP SMEAR-EVERY 3 YRS,AGES 21-65 05/11/2016 05/11/2013, 03/01/2008, 10/19/2006, Additional history exists CKD PHOS USE SMARTSET 10924 12/29/2018 04/01/2018, 08/26/2009, 08/25/2009, Additional history exists DIABETES-HGBA1C EVERY 6 MONTHS 03/27/2019 09/27/2018, 05/01/2018, 12/29/2017, Additional history exists Yearly B-12 05/16/2019 05/16/2018 BREAST CANCER SCREENING DISCUSSION YEARLY AGES 40-75 06/23/2019 06/23/2018, 05/09/2015, 07/12/2014, Additional history exists CKD GFR USE SMARTSET 23934 07/14/201901/12, 12/23/2018, 12/18/2018, Additional history exists CKD HGB USE SMARTSET 80989 12/24/201912/23, 12/08/2018, 06/06/2018, Additional history exists DIABETES-FOOT [...] For more information, please contact: [place] [phone] Latest Code Status on File Code Status Date Activated Date Inactivated Comments Full Code 06/15/2011 12:22 PM 06/17/2011 6:44 PM This order reflects the patients wishes and were consensually agreed upon. Full Code 09/12/2009:47 PM 06/03/2011 7:31 AM This order reflects [...]
--- OUTSIDE RECORDS SUMMARY | 2023-06-01 05:51 | External Medical Summary | Summary of Care ---
Author Name Unknown Organization [place] [address] Care Team Providers Care Business Office Assistant Name Role Phone Kevin Whiteside Primary Care Provider Encounter Details Date Type Department Care Team Description 12/13/2018 Telephone Cardiology, [facility] [address] [facility] [address] Isai Saeed Jr., DO [address] [place] [address] Allergies Active Allergy Reactions Severity Noted [...] MUSCLE SPASM 90 Tab 2 08/01/2018 Active Insulin Pen Needle (BD PEN NEEDLE SHORT U/F) 31G X 8 MM Use 5 times daily with insulin 200 Box Dosing Unit 11 08/01/2018 Active levothyroxine (LEVOXYL) 200 MCG TabletIndications:P [...] at bedtime. 90 Cap 5 08/01/2018 Active rOPINIRole (REQUIP) 1 MG TabletIndications:R estless legs syndrome Take 1 Tab by mouth at bedtime. 90 Tab 4 08/01/2018 Active Glucose Blood (ONETOUCH ULTRA BLUE) [...] TWICE DAILY 180 Tab 3 09/11/2018 Active lisinopril (PRINIVIL) 2.5 MG TabletIndications:H TN, goal below 140/80,Acute diastolic congestive heart failure (HCC),Body mass index (BMI) of 50.0 to 59.9 in adult (HCC),Hypoxemia,ELISSA (obstructive sleep apnea),HTN, goal below 130/80 Take 1 Tab by mouth daily. 31 Tab 5 11/02/2018 Active Insulin Degludec (TRESIBA FLEXTOUCH) 200 UNIT/ML SOPN Inject up to 160 units subcutaneously once daily as directed 9 mL 5 11/22/2018 Active documented as of this encounter (statuses [...] 10/14/2014 Overview: ICD-10 update of inactive term [place] filter in place 08/19/2014 History of pulmonary [...] Miscellaneous Notes * Telephone Encounter - Angi Estrada OSA - 12/15/2018 9:42 AM EDT Spoke with pt. Aware of appt. * Telephone Encounter - Angi Estrada OSA - 12/14/2018 4:26 PM EDT LMOM for pt to return call. * Telephone Encounter - Angi Estrada OSA - 12/13/2018 4:19 PM EDT Secured 01/12/19 @ [facility] with Marjorie Powell. Will call pt. * Telephone Encounter - Little Santiago OSA - 12/13/2018 3:54 PM EDT Patient is being discharged from [facility] on 12-14. Asking for discharge appt with cardio within a month. Please advise.. Thank you, documented in this encounter Plan of Treatment Upcoming Encounters Date Type Specialty Care Team Description 02/23/2019 Office Visit Sleep Disorders Celsa Tafoya CRNP [address] [place] [address] [phone] 02/26/2019 Office Visit Family Medicine Kevin Whiteside DO [address] [address] [phone] 02/28/2019 Office Visit Gynecology Obstetrics Alvina Hi, [facility] [address] [facility] [place] [address] [phone] 03/14/2019 Pharmacy Pharmacy [facility] [place] [address] [address] 03/14/2019 Office Visit Cardiology Rey Woodall MD [address] [address] [phone] 05/04/2019 Office Visit Sleep Disorders Celsa Tafoya CRNP [address] [address] [phone] Health Maintenance Due Date Last Done Comments DIABETES-EYE EXAM 02/24/2011 02/24/2010 (Do ne elsewhere), 12/18/2009, 02/18/2008 (Done elsewhere) PAP SMEAR-EVERY 3 YRS,AGES 21-65 05/11/2016 05/11/2013, 03/01/2008, 10/19/2006, Additional history exists CKD PHOS USE SMARTSET 67530 12/29/2018 0401/2018, 08/26/2009, 08/25/2009, Additional history exists DIABETES-HGBA1C EVERY 6 MONTHS 03/27/2019 09/27/2018, 05/01/2018, 12/29/2017, Additional history exists Yearly B-12 05/16/2019 05/16/2018 BREAST CANCER SCREENING DISCUSSION YEARLY AGES 40-75 06/23/2019 06/23/2018, 05/09/2015, 07/12/2014, Additional history exists CKD GFR USE SMARTSET 05379 07/14/201901/12, 12/23/2018, 12/18/2018, Additional history exists CKD HGB USE SMARTSET 15843 12/24/201912/23, 12/08/2018, 06/06/2018, Additional history exists DIABETES-FOOT [...] For more information, please contact: [place] [phone] Latest Code Status on File Code Status [...]
--- OUTSIDE RECORDS SUMMARY | 2023-06-01 05:51 | External Medical Summary | Summary of Care ---
Author Name Unknown Organization [place] [address] Care Team Providers Care Dust Collector Operator Name Role Phone Kevin Whiteside Primary Care Provider Reason for Referral * Precert (Routine) Status Reason Specialty Diagnoses / Procedures Referred By Contact Referred To Contact Pending Review Precert Sleep Disorders Diagnoses ELISSA (obstructive sleep apnea) Procedures SLEEP STUDY, W/ CPAP (TREATMENT SETTINGS) Paige Patel MD [address] [place] [address] Reason for Visit * Reason Comments Possible Sleep Apnea Encounter Details Date Type Department Care Team Description 02/14/2019 Office Visit Sleep Lab, [address] [address] Paige Patel MD [address] [place] [address] ELISSA (obstructive sleep apnea)* Allergies Active Allergy Reactions Severity Noted Date Comments Heparin 09/04/2009 Heparin Induced Thrombocytopenia Empagliflozin Other (Please comment) Medium 05/17/2018 3 yeast infections in 6 weeks after starting Morphine And Related 09/16/1997 Hallucinations Tetanus Toxoid Other (Please comment) 06/15/2011 Passed out documented as of this encounter (statuses as of 02/20/2019) Medications Medication Sig Dispensed Refills Start Date End Date Status PRILOSEC 20 MG PO CPDR one tablet daily 0 Active oxygen GASIndications:ELISSA (obstructive sleep apnea) 4 LPM bled through CPAP 11 cwp during all periods of sleep. 1 Each 0 07/13/201 6 Active docusate sodium (STOOL SOFTENER) 100 [...] [facility]),Hypoxemia,ELISSA (obstructive sleep apnea),HTN, goal below 130/80 Take 1 Tab by mouth daily. 31 Tab 5 9 Active Insulin Degludec (TRESIBA FLEXTOUCH) 200 UNIT/ML SOPN Inject up to 160 units subcutaneously once daily as directed 9 mL 5 9 Active DULoxetine (CYMBALTA) 60 MG CPEPIndications:Fib romyalgia,Moderate episode of recurrent major depressive disorder ([place] [...] Tab 5 9 Active Vitamin D, Ergocalciferol, 63284 units CapsuleIndications: Vitamin D deficiency Take one capsule by mouth once a week 13 Cap 0 9 Active furosemide (LASIX) 80 MG Tablet Take 1 Tab by mouth 2 times a day. Med was increased during hospitalization 180 Tab 3 9 Active Blood Glucose Monitoring Suppl (ONETOUCH [...] as of this encounter (statuses as of 02/20/2019) Active Problems Problem Noted Date Impetigo 09/27/2018 [...] as of this encounter (statuses as of 02/20/2019) Resolved Problems Problem Noted Date Resolved Date [...] as of this encounter (statuses as of 02/20/2019) Immunizations Name Administration Dates Next Due Pneumococcal [...] Progress Notes * Paige Patel MD - 02/20/2019 1:57 PM EDT . documented in this encounter Plan of Treatment Upcoming Encounters Date Type Specialty Care Team Description 02/23/2019 Office Visit Sleep Disorders Celsa Tafoya CRNP [address] [address] [phone] 02/26/2019 Office Visit Family Medicine Kevin Whiteside DO [address] [address] [phone] 02/28/2019 Office Visit Gynecology Obstetrics Alvina Hi, [facility] [address] [place] [address] [phone] 03/14/2019 Pharmacy Pharmacy [facility] [place] [address] [place] [address] 03/14/2019 Office Visit Cardiology Rey Woodall MD [address] [place] [address] [phone] 04/24/2019 Office Visit Sleep Disorders Celsa Tafoya CRNP [address] [place] [address] [phone] Health Maintenance Due Date Last Done Comments DIABETES-EYE EXAM 02/24/2011 02/24/2010 (Do ne elsewhere), 12/18/2009, 02/18/2008 (Done elsewhere) PAP SMEAR-EVERY 3 YRS,AGES 21-65 05/11/2016 05/11/2013, 03/01/2008, 10/19/2006, Additional history exists CKD PHOS USE SMARTSET 05107 12/29/2018 04/0 01/2018, 08/26/2009, 08/25/2009, Additional history exists DIABETES-HGBA1C EVERY 6 MONTHS 03/27/2019 09/27/2018, 05/01/2018, 12/29/2017, Additional history exists Yearly B-12 05/16/2019 05/16/2018 BREAST CANCER SCREENING DISCUSSION YEARLY AGES 40-75 06/23/2019 06/23/2018, 05/09/2015, 07/12/2014, Additional history exists CKD GFR USE SMARTSET 22635 07/14/201901/12, 12/23/2018, 12/18/2018, Additional history exists CKD HGB USE SMARTSET 61467 12/24/201912/23, 12/08/2018, 06/06/2018, Additional history exists DIABETES-FOOT [...] Documents on File Type Date Recorded Patient Dermatology Nurse Expl anation Advanced Directive 08/22/2009 12:00 [...]
--- OUTSIDE RECORDS SUMMARY | 2023-06-01 05:51 | External Medical Summary | Summary of Care ---
Author Name Unknown Organization [place] [address] Care Team Providers Care Telescope Repairer Name Role Phone Kevin Whiteside DO Primary Care Provider Reason for Visit * Reason Comments Blood Pressure Check dizziness, BP was 1 at home this morning, low since last , also has rash on left lower arm x2 weeks Encounter Details Date Type Department Care Team Description 02/13/2019 Office Visit Family [facility] [address] [place] [address] Kevin Whiteside DO [address] [place] [address] [phone] Controlled substance agreement signed*; Dyslipidemia; Type 2 diabetes mellitus with hemoglobin A1c goal of 7.0%-8.0% ([facility]); Uncontrolled type 2 diabetes mellitus with stage 3 chronic kidney disease, with long-term current use of insulin ([facility]); Chronic diastolic congestive heart failure ([facility]); Body mass index (BMI) of 50.0 to 59.9 in adult ([facility]); Mild episode of recurrent major depressive disorder ([facility]); Hammer toe, unspecified laterality; Venous stasis dermatitis of both lower extremities; HTN, goal below 130/80; Acute diastolic congestive heart failure ([facility]); Hypoxemia; ELISSA (obstructive sleep apnea); HTN, goal below 140/80; Irritant contact dermatitis, unspecified trigger Allergies Active Allergy Reactions Severity Noted Date Comments Heparin 09/04/2009 Heparin Induced Thrombocytopenia Empagliflozin Other (Please comment) Medium 05/17/2018 3 yeast infections in 6 weeks after starting Morphine And Related 09/16/1997 Hallucinations Tetanus Toxoid Other (Please comment) 06/15/2011 Passed out documented as of this encounter (statuses as of 02/13/2019) Medications Medication Sig Dispensed Refills Start Date [...] 50.0 to 59.9 in adult ([facility]),Hypoxemia,OS A (obstructive sleep apnea),HTN, goal below 130/80 Take 1 Tab by mouth daily. 31 Tab 5 11/02/19 19 Active Insulin Degludec (TRESIBA FLEXTOUCH) 200 UNIT/ML SOPN Inject up to 160 units subcutaneously once daily as directed 9 mL 5 11/22/19 19 Active DULoxetine (CYMBALTA) 60 MG CPEPIndications:Fi bromyalgia,Moderat e episode of recurrent major depressive disorder ([facility]),Primary osteoarthritis of both knees Take 1 Cap [...] 5 01/13/20 19 Active Vitamin D, Ergocalciferol, 05671 units CapsuleIndications :Vitamin D deficiency Take one capsule by mouth once a week 13 Cap 0 01/14/20 19 Active furosemide (LASIX) 80 MG Tablet Take 1 Tab by mouth 2 times a day. Med was increased during hospitalization 180 Tab 3 01/27/20 19 Active Blood Glucose Monitoring Suppl (Egr RenovationTOUCH ULTRA 2) w/Device KIT Use to test [...] weeks. 60 g 1 02/14/20 19 Active metoprolol tartrate (LOPRESSOR) 25 MG TabletIndications: HTN, goal below 130/80,Acute diastolic congestive heart failure (HCC),Body mass index (BMI) of 50.0 to 59.9 in adult (HCC),Hypoxemia,OS A (obstructive sleep apnea),HTN, goal below 140/80 Take 1 Tab by mouth 2 times a day. 180 Tab 3 01/02/20 19 019 Discontinued documented as of this encounter (statuses as of 02/13/2019) Active Problems Problem Noted Date Impetigo 09/27/2018 [...] 10/14/2014 Overview: ICD-10 update of inactive term [place] filter in place 08/19/2014 History of pulmonary [...] as of this encounter (statuses as of 02/13/2019) Resolved Problems Problem Noted Date Resolved Date [...] as of this encounter (statuses as of 02/13/2019) Immunizations Name Administration Dates Next Due Pneumococcal [...] Reading Time Taken Comments Blood Pressure 126/60 02/13/2019 1:01 PM EDT Pulse 104 02/13/2019 1:01 PM EDT Temperature 36.6 C (97.9 F) 02/13/2019 1:01 PM ED T Respiratory Rate 24 02/13/2019 1:01 PM EDT Oxygen Saturation - - Inhaled Oxygen Concentration - - Weight 155.1 kg (342 lb) 02/13/2019 1:01 PM EDT Height - - Body Mass Index 56.91 01/23/2019 3:50 PM EDT documented in this encounter Progress Notes * Kevin Whiteside, DO - 02/13/2019 1:09 PM EDT Nursing Notes: Izabela Crump, CHUYITA 02/13/19 1304 Signed The patient has been properly identified by confirmation of name and date of . Chief Complaint Patient presents with Blood Pressure Check dizziness, BP was 103/78 at home this morning, low since last ASSESSMENT/PLAN: 1. Controlled substance agreement signed Updated 2. Dyslipidemia Will recheck lab work as indicated, continue current medication. 3. Type 2 diabetes mellitus with hemoglobin A1c goal of 7.0%-8.0% ([facility]) Continue current medication and follow up with hemoglobin A1c as scheduled. 4. Uncontrolled type 2 diabetes mellitus with stage 3 chronic kidney disease, with long-term current use of insulin ([facility]) As above 5. Chronic diastolic congestive heart failure ([facility]) Continue current diuretics and decreased metoprolol dose to 12.5 mg twice daily. Also having patient touch base with Cardiology in regards to this, but at current with patient having symptomatic hypotension and on very small dose of blood pressure medication overall I think that this is our best immediate action. - metoprolol tartrate (LOPRESSOR) 25 MG Tablet; Take 0.5 Tabs by mouth 2 times a day. Dispense: 90 Tab; Refill: 3 6. Body mass index (BMI) of 50.0 to 59.9 in adult ([facility]) Provided education 7. Mild episode of recurrent major depressive disorder ([facility]) Stable on current medication, continue 8. Hammer toe, unspecified laterality Hammertoe that has been worsening over the past 6 months. Patient currently under care with Podiatry. Hoping the patient will be able to get diabetic shoes as this would greatly help her current painin condition. 9. Venous stasis dermatitis of both lower extremities Bilateral venous stasis of both lower extremities with poor blood flow to the feet. Ongoing issues with foot pain and difficulty with walking. 10. HTN, goal below 130/80 As above - metoprolol tartrate (LOPRESSOR) 25 MG Tablet; Take 0.5 Tabs by mouth 2 times a day. Dispense: 90 Tab; Refill: 3 11. Acute diastolic congestive heart failure (HCC) As above - metoprolol tartrate (LOPRESSOR) 25 MG Tablet; Take 0.5 Tabs by mouth 2 times a day. Dispense: 90 Tab; Refill: 3 13. ELISSA (obstructive sleep apnea) Continue use of nighttime CPAP - metoprolol tartrate (LOPRESSOR) 25 MG Tablet; Take 0.5 Tabs by mouth 2 times a day. Dispense: 90 Tab; Refill: 3 15. Irritant contact dermatitis, unspecified trigger Left forearm contact irritant dermatitis, will use clobetasol as needed for up to 2 weeks. - clobetasol propionate (TEMOVATE) 0.05 % ointment; Apply topically to affected area 2 times a day.To affected area for up to two weeks. Dispense: 60 g; Refill: 1 HPI: Stephanie Camp is a 63 year old female who: Presents today in follow-up due to low blood pressure that has been troubling her lately. Patient having lower pressures at home on readings by home nurse and symptomatic hypotension any time she moves from lying down to sitting or sitting to standing. It resolves after a few minutes but is been problematic and decreased her mobility around the house. Has been hydrating like normal in taking her doses of medications as prescribed. Her lower extremity edema has been much better in general on themost current regimen of diuretics. ROS: CONSTITUTIONAL: no weight loss, no fevers, no sweats HEENT: no change in vision or hearing, no congestion, no sore throat CARDIAC: no chest pain, no palpitations, no orthopnea, no AVENDAÑO, no syncope RESP: no wheezing and no SOB GI: no pain, no NVDC, no melena/hematochezia SKIN: Right forearm rash MSK: no significant joint or muscle pain and no swelling : no dysuria or discharge PHYSICAL EXAMINATION: BP 126/60 | Pulse 104 | Temp (Src) 97.9 (Tympanic) | Resp 24 | Wt 342 lbs (155.130kg) | BMI 56.91 kg/m | BSA 2.67 m | LMP 03/11/2003 GENERAL: alert, healthy, no [...] sounds and no masses or organomegaly SKIN: Left forearm erythematous plaque with excoriations, pruritic but not painful EXTREMITIES: no joint deformities, effusion, or inflammation, +1 pitting edema to the level of the knees bilaterally, no clubbing, no cyanosis, Full ROM, Pulses Intact, Strength equal bilaterally 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 Nocturnal hypoxemia G47.34 ELISSA (obstructive sleep apnea) G47.33 Venous insufficiency I87.2 HTN, goal below 130/80 I10 History of pulmonary embolus (PE) Z86.711 Statin intolerance Z78.[address] [place] [address] Z95.828 Type 2 diabetes mellitus with hemoglobin A1c goal of 7.0%-8.0% ([facility]) E11.9 Fibromyalgia M79.7 Abnormality of gait R26.9 Restless legs syndrome G25.81 Gastroesophageal reflux disease with esophagitis K21.0 Uncontrolled type 2 diabetes mellitus with stage 3 chronic kidney disease, with long-term current use of insulin ([facility]) E11.22, E11.65, N18.3, Z79.4 Body mass index (BMI) of 50.0 to 59.9 in adult ([facility]) Z68.43 Controlled substance agreement signed Z79.899 Chronic diastolic congestive heart failure ([facility]) I50.32 Thoracic back pain M54.6 Mild episode of recurrent major depressive disorder ([facility]) F33.0 Impetigo L01.00 Lumbar radiculopathy M54.16 Past Medical History: Diagnosis Date ELSIE (acute kidney injury) ([facility]) 06/12/2018 Allergic rhinitis due to other allergen Backache Diverticulosis of colon 01/28/06 DM type 2, not at goal ([facility]) ELLIE (generalized anxiety disorder) 09/13/2009 [address] [place] filter in place 08/19/2014 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[facility]) 06/12/2018 History of pulmonary embolus (PE) 07/16/2014 HTN, goal below 140/90 Obesity, BMI not known Perforation of intestine ([facility]) 1996 COLON -- 1996 Pneumonia in aspergillosis(484.6) 09/14/2009 Spontaneous pneumothorax 09/14/2009 Statin intolerance 07/16/2014 Type 2 diabetes mellitus with hemoglobin A1c goal of 7.0%-8.0% ([facility]) 10/14/2014 ICD-10 update of inactive term Vaginal karmen 07/13/2018 Past Surgical History: Procedure Laterality Date ARTHROPLASTY KNEE TOTAL Right 07/24/14 R COLONOSCOPY, DIAGNOSTIC (RECTUM) 02/18/2016 normal, repeat 10 yrs/[facility] COLONOSCOPY, GI REFERRAL OP 01/28/06 diverticulosis--repeat 10 years INCISION OF [place], PLANNED 06/03/2011 TRACHEOSTOMY PLANNED performed by DANNY HOLDER at OR [facility] KNEE ARTHROSCOPY/DEBRIDEMENT 07/[address] PERMANENT GASTROSTOMY TUBE 09/06/09 GASTROSTOMY WITH CONSTUCTION GASTRIC TUBE performed by AMADOU NUNEZ at OR [facility] REMOVAL OF THYROID GLAND 06/15/2011 THYROIDECTOMY INCLUDING SUBSTERNAL THYROID CERVICAL APPROACH performed by DANNY HOLDER at OR [facility] REMOVE GALLBLADDER 09/06/09 CHOLECYSTECTOMY performed by AMADOU NUNEZ at OR [facility] REPAIR RECURRENT INCISIONAL HERNIA 1998 REVISION OF COLOSTOMY, SIMPLE 1998 SUTURE, LARGE INTESTINE W/COLOSTOMY 1996 perforation R colon with colostomy VENA CAVA FILTER/LIGATION/CLIP 08/19/09 [place] filter placement through the right femoral 08/19/[address] Lerma at [facility] Current Outpatient Medications Medication Sig Dispense Refill clobetasol propionate (TEMOVATE) 0.05 % ointment Apply [...] 30 Tab 5 Blood Glucose Monitoring Suppl (Familytic ULTRA 2) w/Device KIT Use to test [...] day. 30 mL 4 Vitamin D, Ergocalciferol, 47635 units Capsule Take one capsule by mouth [...] cut, crush or chew 90 Cap 5 Insulin Degludec (TRESIBA FLEXTOUCH) 200 UNIT/ML [...] 3-4 times a day. 400 Strip 3 Glucose Blood (ONETOUCH ULTRA BLUE) STRP [...] 20 MG PO CPDR one tablet daily traMADol (ULTRAM) 50 MG Tablet Take 1 Tab by mouth every 6 hours as needed for Pain. 30 Tab 0 cyclobenzaprine (FLEXERIL) 10 MG Tablet TAKE ONE TABLET BY MOUTH AT BEDTIME NEEDED FOR MUSCLE SPASM 90 Tab 2 oxygen GAS 4 LPM bled through CPAP 11 cwp during all periods of sleep. 1 Each 0 Review of patient's allergies indicates: Allergen Reactions Jardiance [Empagliflozin] Other (Please comment) 3 yeast infections in 6 weeks after starting Heparin Heparin Induced Thrombocytopenia Morphine And Related Hallucinations Tetanus Toxoid Other (Please comment) Passed out Kevin Whiteside DO [address] [address] (This note was completed using the dictation program Fluency Direct. As such, there may be misspellings, word substitutions, or other variations that should not change the essence of the clinical content of this encounter note.If there is need for further clarification, please direct questions to the provider listed above.) documented in this encounter Nursing Notes * Izabela Crump LPN - 02/13/2019 1:01 PM EDT The patient has been properly identified by confirmation of name and date of . Chief Complaint Patient presents with Blood Pressure Check dizziness, BP was 103/78 at home this morning, low since last documented in this encounter Plan of Treatment Upcoming Encounters Date Type Specialty Care Team Description 02/23/2019 Office Visit Sleep Disorders Celsa Tafoya CRNP [address] [place] [address] 02/26/2019 Office Visit Family Medicine Kevin Whiteside DO [address] [place] [address] 02/28/2019 Office Visit Gynecology Obstetrics [address] Hi [address] [place] [address] [phone] 03/14/2019 Pharmacy Pharmacy [facility] [address] [place] [address] 03/14/2019 Office Visit Cardiology Rey Woodall MD [address] [place] [phone] 04/24/2019 Office Visit Sleep Disorders Celsa Tafoya CRNP [address] [place] [id number] Health Maintenance Due Date Last Done Comments DIABETES-EYE EXAM 02/24/2011 02/24/2010 (Do ne elsewhere), 12/18/2009, 02/18/2008 (Done elsewhere) PAP SMEAR-EVERY 3 YRS,AGES 21-65 05/11/2016 05/11/2013, 03/01/2008, 10/19/2006, Additional history exists CKD PHOS USE SMARTSET 11116 12/29/2018 04/0 01/2018, 08/26/2009, 08/25/2009, Additional history exists DIABETES-HGBA1C EVERY 6 MONTHS 03/27/2019 09/27/2018, 05/01/2018, 12/29/2017, Additional history exists Yearly B-12 05/16/2019 05/16/2018 BREAST CANCER SCREENING DISCUSSION YEARLY AGES 40-75 06/23/2019 06/23/2018, 05/09/2015, 07/12/2014, Additional history exists CKD GFR USE SMARTSET 86400 07/14/201901/12, 12/23/2018, 12/18/2018, Additional history exists CKD HGB USE SMARTSET 85340 12/24/201912/23, 12/08/2018, 06/06/2018, Additional history exists DIABETES-FOOT [...] as of this encounter Visit Diagnoses Diagnosis Controlled substance agreement signed- Primary Encounter for long-term (current) use of other medications Dyslipidemia Other and unspecified hyperlipidemia Type 2 diabetes mellitus with hemoglobin A1c goal of 7.0%-8.0% (HCC) Uncontrolled type 2 diabetes mellitus with stage 3 chronic kidney disease, with long-term current use of insulin (HCC) Chronic diastolic congestive heart failure (HCC) Chronic diastolic heart failure Body mass index (BMI) of 50.0 to 59.9 in adult (HCC) Mild episode of recurrent major depressive disorder (HCC) Hammer toe, unspecified laterality Venous stasis dermatitis of both lower extremities HTN, goal below 130/80 Unspecified essential hypertension Acute diastolic congestive heart failure (HCC) Acute diastolic heart failure Hypoxemia ELISSA (obstructive sleep apnea) Obstructive sleep apnea (adult) (pediatric) HTN, goal below 140/80 Unspecified essential hypertension Irritant contact dermatitis, unspecified trigger documented in this encounter Advance Directives Documents on File Type Date Recorded Patient Cad Design Engineer Expl anation Advanced Directive 08/22/2009 12:00 [...]
--- OUTSIDE RECORDS SUMMARY | 2023-06-01 05:51 | External Medical Summary | Summary of Care ---
Author Name Unknown Organization [place] [address] Care Team Providers Care Mountain Or Glacier Guide Name Role Phone Kevin Whiteside Primary Care Provider Reason for Visit * Reason Comments case management Encounter Details Date Type Department Care Team Description 01/30/2019 Telephone Internal Medicine [address] [address] Frances Nicholson RN [address] [place] [address] case management Allergies Active Allergy [...] goal below 130/80,Acute diastolic congestive heart failure ([facility]),Body mass index (BMI) of 50.0 to 59.9 in adult ([facility]),Hypoxemia,ELISSA (obstructive sleep apnea),HTN, goal below 140/80 Take [...] Tab 5 9 Active Vitamin D, Ergocalciferol, 70085 units CapsuleIndications: Vitamin D deficiency Take one [...] 3 9 Active Blood Glucose Monitoring Suppl (TamocoUCH ULTRA 2) w/Device KIT Use to test [...] 10/14/2014 Overview: ICD-10 update of inactive term [place] filter in place 08/19/2014 History of pulmonary [...] Encounter - Frances Nicholson RN - 01/30/2019 1:18 PM EDT PMH: DM, HTN, SOA with [...] alcel sleep study due to hosp 01/12-cards ROSA wk 4 Reports that she got an apt in [place]-will be able to move when lease is up the end of February-rent is significant lower. BS running better with adjustment in insulin. Was seen by podiatry and now needs some testing done-vascular Weight today was 339-per pt, [facility] scale is not reading BP and pulse is reading on [facility] Denies increased SOB Denies increased swelling Denies chest pain Denies N/V or decreased intake Denies fever/chills Denies diff with bowels or bladder Last urine culture was neg Reports ongoing neuropathy pain in legs and feet-currently managed with meds Instructed to call with any s/s of HF exacerbation -Report the following: ->3 lb weight gain in one day or 5 lbs in a week to PCP -increased edema in feet, abdomen or hands -increased SOB and cough, especially if at night -increased fatigue or vertigo Encouraged to avoid salt/salty foods Limit fluids to 2 liters/day Also avoid concentrated sweets Call if BS >250 for longer than 24 hours or any other concerns Call in 4-6 weeks Frances Nicholson RN, [facility] Technical Staff Assistant [phone] documented in this encounter Plan of Treatment Upcoming Encounters Date Type Specialty Care Team Description 02/23/2019 Office Visit Sleep Disorders Celsa Tafoya CRNP [address] [facility] [place] [address] [phone] 02/26/2019 Office Visit Family Medicine Kevin Whiteside DO [address] [place] [address] [phone] 02/28/2019 Office Visit Gynecology Obstetrics Alvina Hi, [facility] [address] [place] [address] [phone] 03/14/2019 Pharmacy Pharmacy [facility] [address] [place] [address] 03/14/2019 Office Visit Cardiology Rey Woodall MD [address] [place] [address] 05/04/2019 Office Visit Sleep Disorders Celsa Tafoya CRNP [address] [place] [address] [phone] Health Maintenance Due Date Last Done Comments DIABETES-EYE EXAM 02/24/2011 02/24/2010 (Do ne elsewhere), 12/18/2009, 02/18/2008 (Done elsewhere) PAP SMEAR-EVERY 3 YRS,AGES 21-65 05/11/2016 05/11/2013, 03/01/2008, 10/19/2006, Additional history exists CKD PHOS USE SMARTSET 08196 12/29/2018 04/01/2018, 08/26/2009, 08/25/2009, Additional history exists DIABETES-HGBA1C EVERY 6 MONTHS 03/27/2019 09/27/2018, 05/01/2018, 12/29/2017, Additional history exists Yearly B-12 05/16/2019 05/16/2018 BREAST CANCER SCREENING DISCUSSION YEARLY AGES 40-75 06/23/2019 06/23/2018, 05/09/2015, 07/12/2014, Additional history exists CKD GFR USE SMARTSET 40053 07/14/201901/12, 12/23/2018, 12/18/2018, Additional history exists CKD HGB USE SMARTSET 28974 12/24/201912/23, 12/08/2018, 06/06/2018, Additional history exists DIABETES-FOOT [...] For more information, please contact: [place] [id number] Latest Code Status on File Code Status [...]
--- OUTSIDE RECORDS SUMMARY | 2023-06-01 05:51 | External Medical Summary | Summary of Care ---
Author Name Unknown Organization [place] [address] Care Team Providers Care Writer Editor Name Role Phone WhitesideKevinmelinda Primary Care Provider Reason for Referral * Precert (Routine) Status Reason Specialty Diagnoses / Procedures Referred By Contact Referred To Contact Pending Review Precert Sleep Disorders Diagnoses ELISSA (obstructive sleep apnea) Nocturnal hypoxemia Restless legs syndrome (RLS) Procedures SLEEP STUDY, W/ CPAP (TREATMENT SETTINGS) Celsa Tafoya CRNP [address] [facility] [place] [address] Encounter Details Date Type Department Care Team Description 02/20/2019 Telephone Sleep Disorders, [facility] [address] [place] [address] Celsa Tafoya CRNP 132 [facility] [place] [address] [phone] Allergies Active Allergy Reactions Severity Noted Date Comments Heparin 09/04/2009 Heparin Induced Thrombocytopenia Empagliflozin Other (Please comment) Medium 05/17/2018 3 yeast infections in 6 weeks after starting Morphine And Related 09/16/1997 Hallucinations Tetanus Toxoid Other (Please comment) 06/15/2011 Passed out documented as of this encounter (statuses as of 02/21/2019) Medications Medication Sig Dispensed Refills Start Date [...] [facility]),Hypoxemia,ELISSA (obstructive sleep apnea),HTN, goal below 130/80 Take 1 Tab by mouth daily. 31 Tab 5 9 Active Insulin Degludec (TRESIBA FLEXTOUCH) 200 UNIT/ML SOPN Inject up to 160 units subcutaneously once daily as directed 9 mL 5 9 Active DULoxetine (CYMBALTA) 60 MG CPEPIndications:Fib romyalgia,Moderate episode of recurrent major depressive disorder (ROPER [...] Tab 5 9 Active Vitamin D, Ergocalciferol, 85898 units CapsuleIndications: Vitamin D deficiency Take one [...] as of this encounter (statuses as of 02/21/2019) Active Problems Problem Noted Date Impetigo 09/27/2018 [...] as of this encounter (statuses as of 02/21/2019) Resolved Problems Problem Noted Date Resolved Date [...] as of this encounter (statuses as of 02/21/2019) Immunizations Name Administration Dates Next Due Pneumococcal [...] Telephone Encounter - Rema Barroso OSA - 02/21/2019 1:25 PM EDT Spoke with pt. 02/23 appt cancelled. Sleep study scheduled 04/09/19 at 8:00PM at [facility]. Pt already has appt with Celsa for 1 yr follow up on April 24, appt kept to review sleep studyresults. * Telephone Encounter - Celsa Tafoya CRNP - 02/21/2019 8:06 AM EDT Order placed. Needs return within 30 days of testing. * Telephone Encounter - Anne Mayes CMA - 02/20/2019 3:22 PM EDT Patient aware of message. She would like to try the titration study again. Please cancel february 23 appointment and schedule study. Patient states she had problems with RLS the night of study * Telephone Encounter - Celsa Tafoya CRNP - 02/20/2019 2:52 PM EDT Pt didn't sleep during titration study required for medicare to keep the oxygen. I can see her Tuesday to further discuss or we can cancel Tuesday's appointment and reschedule the in lab titration withreturn visit within 30 days of testing per Medicare. Please call and offer these options. documented in this encounter Plan of Treatment Upcoming Encounters Date Type Specialty Care Team Description 02/26/2019 Office Visit Family Medicine Kevin Whiteside DO [address] [place] [address] [phone] 02/28/2019 Office Visit Gynecology Obstetrics Alvina Hi [address] [place] [address] [phone] 03/14/2019 Pharmacy Pharmacy [facility] [address] [place] [address] 03/14/2019 Office Visit Cardiology Rey Woodall MD [address] [place] [address] [phone] 04/24/2019 Office Visit Sleep Disorders Celsa Tafoya CRNP [address] [place] [address] [phone] Pending Results Name Type Priority Associated Diagnoses Date /Time SLEEP STUDY, W/ CPAP (TREATMENT SETTINGS) Procedures Routine ELISSA (obstructive sleep apnea) Nocturnal hypoxemia Restless legs syndrome (RLS) 02/21/2019 Health Maintenance Due Date Last Done Comments DIABETES-EYE EXAM 02/24/2011 02/24/2010 (Do ne elsewhere), 12/18/2009, 02/18/2008 (Done elsewhere) PAP SMEAR-EVERY 3 YRS,AGES 21-65 05/11/2016 05/11/2013, 03/01/2008, 10/19/2006, Additional history exists CKD PHOS USE SMARTSET 77115 12/29/2018 04/0 01/2018, 08/26/2009, 08/25/2009, Additional history exists DIABETES-HGBA1C EVERY 6 MONTHS 03/27/2019 09/27/2018, 05/01/2018, 12/29/2017, Additional history exists Yearly B-12 05/16/2019 05/16/2018 BREAST CANCER SCREENING DISCUSSION YEARLY AGES 40-75 06/23/2019 06/23/2018, 05/09/2015, 07/12/2014, Additional history exists CKD GFR USE SMARTSET 89810 07/14/201901/12, 12/23/2018, 12/18/2018, Additional history exists CKD HGB USE SMARTSET 93061 12/24/201912/23, 12/08/2018, 06/06/2018, Additional history exists DIABETES-FOOT [...] (pediatric) Nocturnal hypoxemia Hypoxemia Restless legs syndrome (RLS) documented in this encounter Advance Directives Documents on File Type Date Recorded Patient Security Compliance Engineer Expl anation Advanced Directive 08/22/2009 12:00 [...]
--- OUTSIDE RECORDS SUMMARY | 2023-06-01 05:52 | External Medical Summary | Summary of Care ---
Author Name Unknown Organization [place] [address] Care Team Providers Care International Trade Analyst Name Role Phone Kevin Whiteside Primary Care Provider Encounter Details Date Type Department Care Team Description 01/16/2019 PipelayerPipelayer Practice [facility] [address] [place] [address] Frances Nicholson, RN 132 [facility] [place] [address] Chronic diastolic congestive heart failure (HCC)*; Type 2 diabetes mellitus with hemoglobin A1c goal of 7.0%-8.0% (HCC) Allergies Active Allergy Reactions Severity Noted Date Comments Heparin 09/04/2009 Heparin Induced Thrombocytopenia Empagliflozin Other (Please comment) Medium 05/17/2018 3 yeast infections in 6 weeks after starting Morphine And Related 09/16/1997 Hallucinations Tetanus Toxoid Other (Please comment) 06/15/2011 Passed out documented as of this encounter (statuses as of 01/16/2019) Medications Medication Sig Dispensed Refills Start Date [...] Tab 5 9 Active Vitamin D, Ergocalciferol, 24347 units CapsuleIndications: Vitamin D deficiency Take one capsule by mouth once a week 13 Cap 0 9 Active documented as of this encounter (statuses as of 01/16/2019) Active Problems Problem Noted Date Impetigo 09/27/2018 [...] as of this encounter (statuses as of 01/16/2019) Resolved Problems Problem Noted Date Resolved Date [...] as of this encounter (statuses as of 01/16/2019) Immunizations Name Dates Previously Given Next Due [...] Progress Notes * Frances Nicholson RN - 01/16/2019 10:57 AM EDT PMH: DM, HTN, SOA with CPAP, history of PE, frank filter in place, dyslipidemia-statin intol, GERD, Fibromyalgia, depression/anxiety New-acute diastolic HF and ELSIE sent from PCP office abnormal labs and shortness of breath. x-ray concerning for atypical pneumonia 06/06/18-[facility] admit Acute respiratory failure with hypoxia and [...] weight 343 on d/c 06/10/18 d/c from [facility] new on Lasix, potassium and Mg Stopped Metformin and HCTZ 12/08 [facility] admit acute decompensated diastolic HF Consulted Cardiology and nephrology 12/14/18 D/c to home Added Spirolactone Increased Lasix to 80 mg BID (4-6 hours apart) Weekly BMP x 4 weights and home BP cuff D/c weight 351.2 12/18-Dr Whiteside 01/12-cards 01/24-neph 12/23 [facility] admit with Nausea, abd pain, intermittent fever (afebrile in EE), headaches, diffuse body aches. Creat elevated 2.52 on admit UTI- for klebselli 12/27-d/c to home 10 days of Omnicef for UTI 2nd set of blood cultures neg d/c weight 157.8 Kg (D/C weight last admit was 159.3) 01/01-Dr Whiteside 01/11-sleep med-but had to alcel sleep study due to hosp 01/12-cards Case Management Assessment/GOALS ROSA wk 3 Is this call for a hospital, care home or rehab facility discharge to home? Yes 12/27 D/c from [facility] S: Reports:reports that she has been feeling stressed over getting an appt-says that she had the [facility] have an appointment tomorrow about the apt and hoping she does get the apt. Reports that her BS is elevated, 300+, but she is Not sure as she has been using an "old meter" as she cannot find herusual meter. Says she has an appt with [facility] tomorrow and will get all that straightened out. Made pt aware that [facility] scale/BP not transmitting and provided with number to call Weight gain: Denies Weight stable at 337 lbs Increased edema: reports some ankle edema Chest pain fenies Increased shortness of breath: denies cough denies dyspnea with daily activities oxygen has O2 to use HS Chills / Sweats / Fever: denies chills/sweats and denies fever Fall: denies any falls since last Care Management encounter Appetite: denies nausea, vomiting, burning, decreased appetite Bowel: denies problems Bladder: denies problems Medications: takes all medications as prescribed. Chronic Pain: ongoing fibromyalgia and neuropathy pain Blood Pressure: has [facility] BP cuff that is not transmitting -[facility] has been attempting to contact pt-provided pt with [facility] contact info and asked her to call to get transmission initiated O: Phone visit for GOALS, ROSA wk 3. Medications: takes all medications as prescribed. A: Patient Centered Prioritized Goals: AMP scale and BP cuff will be initiated. Pt will verbalize s/s needing reported. Pt will keep apptsas scheduled. Development of self - management action plan [...] to communicate, understand instructions, process information. P: Pipelayer Interventions: provided pt with [facility] number and advised to call as scle/BP cuff not transmitting-pt has not been answering calls from [facility] as did not recognize number. Requested podiatry referral as pt c/o pain and burning in feet-ongoing Reinforce Self Management Action Plan established at previous visit Reinforced sodium restriction Reinforced safety education / fall prevention Reinforced to call when weight gain of 3 lbs or more in 24 hours or 5 lbs or more in a week also increased SOB, swelling, fatigue, unmanaged BS or any other concerns Call next week PCP Notified of enrollment in CM/HM program: Yes SNP Member? No Re-evaluation of plan of care and progress towards goals achievement:aware of s//s needing reported. Pt to call [facility] to have scale and BP cuff initiated. BS unmanaged-pt to meet with [facility] tomorrow Plan to call patient next week to reassess and update plan of care, instructed to call Case Manageror Primary Care Provider with change in symptoms or as needed before next follow-up, verbalizes understanding and agrees with plan. Frances Nicholson RN Outpatient Pipelayer documented in this encounter Plan of Treatment Upcoming Encounters Date Type Specialty Care Team Description 01/17/2019 Pharmacy Pharmacy [facility] [address] [place] [address] 01/24/2019 Office Visit Nephrology Gia White MD [address] [facility] [place] [phone] 02/23/2019 Office Visit Sleep Disorders Celsa Tafoya CRNP [address] [place] [id number] 02/26/2019 Office Visit Family Medicine Kevin Whiteside, [address] [place] [address] [phone] 02/28/2019 Office Visit Gynecology Obstetrics Alvina Hi, [address] [place] [phone] 03/14/2019 Office Visit Cardiology Rey Woodall MD 132 [facility] [place] [address] 05/04/2019 Office Visit Sleep Disorders Celsa Tafoya CRNP 132 [facility] [place] [address] Health Maintenance Due Date Last Done Comments DIABETES-EYE EXAM 02/24/2011 02/24/2010 (Do ne elsewhere), 12/18/2009, 02/18/2008 (Done elsewhere) PAP SMEAR-EVERY 3 YRS,AGES 21-65 05/11/2016 05/11/2013, 03/01/2008, 10/19/2006, Additional history exists CKD PHOS USE SMARTSET 51469 12/29/2018 04/0 01/2018, 08/26/2009, 08/25/2009, Additional history exists DIABETES-HGBA1C EVERY 6 MONTHS 03/27/2019 09/27/2018, 05/01/2018, 12/29/2017, Additional history exists Yearly B-12 05/16/2019 05/16/2018 BREAST CANCER SCREENING DISCUSSION YEARLY AGES 40-75 06/23/2019 06/23/2018, 05/09/2015, 07/12/2014, Additional history exists CKD GFR USE SMARTSET 49202 07/14/201901/12, 12/23/2018, 12/18/2018, Additional history exists CKD HGB USE SMARTSET 60719 12/24/201912/23, 12/08/2018, 06/06/2018, Additional history exists DIABETES-FOOT [...] failure (HCC)- Primary Chronic diastolic heart failure Type 2 diabetes mellitus with hemoglobin A1c goal of 7.0%-8.0% (HCC) documented in this encounter Advance Directives Patient has advance care planning documents, and code status on file. For more information, please contact: [place] [phone] Latest Code Status on File Code Status [...]
--- OUTSIDE RECORDS SUMMARY | 2023-06-01 05:52 | External Medical Summary | Summary of Care ---
Author Name Unknown Organization [place] [address] Care Team Providers Care Flat Knitter Name Role Phone Kevin Whiteside DO Primary Care Provider Reason for Referral * Evaluate & Treat - Unlimited Visits (Within 10 days (routine)) Status Reason Specialty Diagnoses / Procedures Referred By Contact Referred To Contact Authorized Specialty Services Required Ophthalmology Diagnoses Type 2 diabetes mellitus with hemoglobin A1c goal of 7.0%-8.0% ([facility]) Kevin Whiteside DO [address] [place] [address] Reason for Visit * Reason Comments Referral Requested by Specialist Encounter Details Date Type Department Care Team Description 01/03/2019 Telephone Internal Medicine [address] [address] Frances Nicholson, RN 132 [place] [address] Referral Requested by Specialist Allergies Active Allergy Reactions Severity Noted Date Comments Heparin 09/04/2009 Heparin Induced Thrombocytopenia Empagliflozin Other (Please comment) Medium 05/17/2018 3 yeast infections in 6 weeks after starting Morphine And Related 09/16/1997 Hallucinations Tetanus Toxoid Other (Please comment) 06/15/2011 Passed out documented as of this encounter (statuses as of 01/03/2019) Medications Medication Sig Dispensed Refills Start Date [...] per day. 15 mL 4 9 Active spironolactone (ALDACTONE) 12.5 MG TABS Take by mouth daily. 0 Acti ve DULoxetine (CYMBALTA) 60 MG CPEPIndications:Fib romyalgia,Moderate episode of recurrent major depressive disorder (HCC),Primary osteoarthritis of both knees Take 1 Cap by mouth daily. Do not cut, crush or chew 90 Cap 5 9 Active traMADol (ULTRAM) 50 MG Tablet Take 1 Tab by mouth every 6 hours as needed for Pain. 30 Tab 0 9 Active cefdinir (OMNICEF) 300 MG Capsule Take 300 mg by mouth 2 times a day. 0 9 01/09/20 19 Active metoprolol tartrate (LOPRESSOR) 25 MG TabletIndications:H TN, goal below 130/80,Acute diastolic congestive heart failure (HCC),Body mass index (BMI) of 50.0 to 59.9 in adult ([facility]),Hypoxemia,ELISSA (obstructive sleep apnea),HTN, goal below [...] Med was increased during hospitalization 0 Active documented as of this encounter (statuses as of 01/03/2019) Active Problems Problem Noted Date Impetigo 09/27/2018 [...] as of this encounter (statuses as of 01/03/2019) Resolved Problems Problem Noted Date Resolved Date [...] as of this encounter (statuses as of 01/03/2019) Immunizations Name Dates Previously Given Next Due [...] Telephone Encounter - Frances Nicholson RN - 01/03/2019 1:05 PM EDT Referral and demographics faxed Frances Nicholson RN, [facility] Customer Marketing Assistant [phone] * Telephone Encounter - Kevin Whiteside DO - 01/03/2019 12:56 PM EDT Signed, thank you. * Telephone Encounter - Frances Nicholson RN - 01/03/2019 9:28 AM EDT Pt willing to set up diabetic eye exam Scheduled for 04/05/19 @ 2:15 pm, pt aware Please sign referral if agree -will fax to [facility] [phone] Thanks, Frances Nicholson, shape hand [phone] documented in this encounter Plan of Treatment Upcoming Encounters Date Type Specialty Care Team Description 01/12/2019 Office Visit Cardiology Marjorie Powell PA-C [address] [place] [address] [phone] 01/17/2019 Pharmacy Pharmacy [facility] [address] [place] [address] 01/24/2019 Office Visit Nephrology Gia White MD 21 [facility] [place] [phone] 02/23/2019 Office Visit Sleep Disorders Celsa Tafoya CRNP [address] [place] [address] [phone] 02/26/2019 Office Visit Family Medicine Kevin Whiteside DO [address] [place] [address] 02/28/2019 Office Visit Gynecology Obstetrics [address]vina [address] [place] [address] [phone] 03/14/2019 Office Visit Cardiology Rey Woodall MD [address] [place] [phone] 05/04/2019 Office Visit Sleep Disorders Celsa Tafoya CRNP [address] [place] [address] Scheduled Referrals Name Priority Associated Diagnoses Order S chedule OPHTHALMOLOGY(DIABE EVE-EXTENDED)REFERR AL OP Within 10 days (routine) Type 2 diabetes mellitus with hemoglobin A1c goal of 7.0%-8.0% (HCC) Ordered: 01/03/2019 Health Maintenance Due Date Last Done Comments DIABETES-EYE EXAM 02/24/2011 02/24/2010 (Do ne elsewhere), 12/18/2009, 02/18/2008 (Done elsewhere) PAP SMEAR-EVERY 3 YRS,AGES 21-65 05/11/2016 05/11/2013, 03/01/2008, 10/19/2006, Additional history exists CKD PHOS USE SMARTSET 41012 12/29/2018 04/0 01/2018, 08/26/2009, 08/25/2009, Additional history exists DIABETES-HGBA1C EVERY 6 MONTHS 03/27/2019 09/27/2018, 05/01/2018, 12/29/2017, Additional history exists Yearly B-12 05/16/2019 05/16/2018 BREAST CANCER SCREENING DISCUSSION YEARLY AGES 40-75 06/23/2019 06/23/2018, 05/09/2015, 07/12/2014, Additional history exists CKD GFR USE SMARTSET 27359 06/25/201912/23, 12/18/2018, 12/14/2018, Additional history exists CKD HGB USE SMARTSET 43774 12/24/201912/23, 12/08/2018, 06/06/2018, Additional history exists DIABETES-FOOT [...] Primary documented in this encounter Advance Directives Patient has advance care planning documents, and code status on file. For more information, please contact: [place] [phone] Latest Code Status on File Code Status [...]
--- OUTSIDE RECORDS SUMMARY | 2023-06-01 05:52 | External Medical Summary | Summary of Care ---
Author Name Unknown Organization [place] [address] Care Team Providers Care Principal Strategist Name Role Phone Kevin Whiteside DO Primary Care Provider Encounter Details Date Type Department Care Team Description 01/02/2019 Documentation Care Coordination [address] [place] [address] Kevin Whiteside DO [address] [place] [address] Allergies Active Allergy Reactions Severity Noted [...] 10/14/2014 Overview: ICD-10 update of inactive term [place] filter in place 08/19/2014 History of pulmonary [...] Progress Notes * Mira Duong, Community Health Vice President Of Compliance - 01/03/2019 4:16 PM EDT LES HOME VISIT on 01-02-19~ LES did home visit with patient, 2 cats and CM. Patient lives in the lower apartment. There are steps from the driveway to her apartment. Safety check and LES survey were done. Patients home is somewhat cluttered, but no safety concerns at this time. She has smoke alarm, fire extinguisher, hallways, living room and floors have some clutter but no evidence of gas heat or space heaters. Patient states that the bedroom has good lighting and pt can go into the bathroom with no issues. Bathroom has grab bars and safety features. Kitchen has enough food, items at safe reach to the cupboards withoutusing a step stool. She has everything needed for her safety to live at home. Reinforced safety with patient. She said she does drive and has a car. She is independent in her self- care and does most of her own housework and does laundry. She does not wear glasses. She does get food stamps ($180) and states she doesnt have any current needs at this time. LES gave her a lot of information regarding what foods to avoid that have high sodium, how to read sodium labels, what to avoid to reduce sodium and recipe for making your own low sodium spices and what foods/drinks have high liquid content. She does wear hard soles shoes/slippers in the house. Patient was very pleasant and seemed happy. She did complain that she thought she had yeast infection. CM was going to contact PCP about getting RX. CM will contact JIHAN SALDANA regarding help for housing thepatient. LES did send previously information for the pt to contact. documented in this encounter Plan of Treatment Upcoming Encounters Date Type Specialty Care Team Description 01/12/2019 Office Visit Cardiology Marjorie Powell PA-C [address] [place] [address] [phone] 01/17/2019 Pharmacy Pharmacy [facility] [address] [place] [address] 01/24/2019 Office Visit Nephrology Gia White MD [facility] [place] [address] [phone] 02/23/2019 Office Visit Sleep Disorders Celsa Tafoya CRNP [address] [place] [address] 02/26/2019 Office Visit Family Medicine Kevin Whiteside DO [address] [place] [address] 02/28/2019 Office Visit Gynecology Obstetrics Alvina Hi [facility] [address] [facility] [place] [address] [phone] 03/14/2019 Office Visit Cardiology Rey Woodall MD [address] [place] [address] 05/04/2019 Office Visit Sleep Disorders Celsa Tafoya CRNP [address] [place] [address] [phone] Health Maintenance Due Date Last Done Comments DIABETES-EYE EXAM 02/24/2011 02/24/2010 (Do ne elsewhere), 12/18/2009, 02/18/2008 (Done elsewhere) PAP SMEAR-EVERY 3 YRS,AGES 21-65 05/11/2016 05/11/2013, 03/01/2008, 10/19/2006, Additional history exists CKD PHOS USE SMARTSET 10224 12/29/2018 0401/2018, 08/26/2009, 08/25/2009, Additional history exists DIABETES-HGBA1C EVERY 6 MONTHS 03/27/2019 09/27/2018, 05/01/2018, 12/29/2017, Additional history exists Yearly B-12 05/16/2019 05/16/2018 BREAST CANCER SCREENING DISCUSSION YEARLY AGES 40-75 06/23/2019 06/23/2018, 05/09/2015, 07/12/2014, Additional history exists CKD GFR USE SMARTSET 85463 06/25/201912/23, 12/18/2018, 12/14/2018, Additional history exists CKD HGB USE SMARTSET 69630 12/24/201912/23, 12/08/2018, 06/06/2018, Additional history exists DIABETES-FOOT [...] For more information, please contact: [place] [phone] Latest Code Status on File Code Status [...]
--- OUTSIDE RECORDS SUMMARY | 2023-06-01 05:52 | External Medical Summary | Summary of Care ---
Author Name Unknown Organization [facility] [place] [address] Care Team Providers Care Director Of Graduate Medical Education Name Role Phone Kevin Whiteside Primary Care Provider Reason for Visit * Reason Comments Advice Encounter Details Date Type Department Care Team Description 01/23/2019 Telephone Internal Medicine [address] [address] Frances Nicholson, RN [address] [place] [address] Advice Allergies Active Allergy Reactions Severity Noted Date Comments Heparin 09/04/2009 Heparin Induced Thrombocytopenia Empagliflozin Other (Please comment) Medium 05/17/2018 3 yeast infections in 6 weeks after starting Morphine And Related 09/16/1997 Hallucinations Tetanus Toxoid Other (Please comment) 06/15/2011 Passed out documented as of this encounter (statuses as of 01/24/2019) Medications Medication Sig Dispensed Refills Start Date [...] Tab 5 9 Active Vitamin D, Ergocalciferol, 37929 units CapsuleIndications: Vitamin D deficiency Take one capsule by mouth once a week 13 Cap 0 9 Active cefdinir (OMNICEF) 300 MG CapsuleIndications: UTI symptoms Take 1 Cap by mouth every 12 hours for 7 days. For 10 days. 14 Cap 0 9 01/31/20 19 Active documented as of this encounter (statuses as of 01/24/2019) Active Problems Problem Noted Date Impetigo 09/27/2018 [...] as of this encounter (statuses as of 01/24/2019) Resolved Problems Problem Noted Date Resolved Date [...] as of this encounter (statuses as of 01/24/2019) Immunizations Name Dates Previously Given Next Due [...] Telephone Encounter - Frances Nicholson RN - 01/24/2019 9:27 AM EDT Pt was seen at [facility] and given Omnicef Urine culture done Frances Nicholson RN, [facility] Bottle Booth Attendant [phone] * Telephone Encounter - Frances Nicholson RN - 01/23/2019 11:28 AM EDT FYI Pt c/o dysuria, urgency and frequency BP low, today-89/61 BS have been high in the high 300s Advised pt that she needs to be seen She would like to go to [facility] this afternoon Pt has history of UTI Frances Nicholson RN, [facility] Bottle Booth Attendant [phone] documented in this encounter Plan of Treatment Upcoming Encounters Date Type Specialty Care Team Description 01/24/2019 Office Visit Nephrology Gia White MD 21 [facility] [place] [address] [phone] 01/26/2019 Pharmacy Pharmacy [facility] [place] 132 [facility] [place] [address] 02/23/2019 Office Visit Sleep Disorders Celsa Tafoya CRNP [address] [place] [id number] 02/26/2019 Office Visit Family Medicine Kevin Whiteside DO [address] [place] [address] [phone] 02/28/2019 [facility] 400 [facility] [place] [id number] 03/14/2019 Office Visit Cardiology Rey Woodall MD [address] [place] [address] 05/04/2019 Office Visit Sleep Disorders Celsa Tafoya CRNP [address] [place] [id number] Health Maintenance Due Date Last Done Comments DIABETES-EYE EXAM 02/24/2011 02/24/2010 (Do ne elsewhere), 12/18/2009, 02/18/2008 (Done elsewhere) PAP SMEAR-EVERY 3 YRS,AGES 21-65 05/11/2016 05/11/2013, 03/01/2008, 10/19/2006, Additional history exists CKD PHOS USE SMARTSET 81351 12/29/2018 04/0 01/2018, 08/26/2009, 08/25/2009, Additional history exists DIABETES-HGBA1C EVERY 6 MONTHS 03/27/2019 09/27/2018, 05/01/2018, 12/29/2017, Additional history exists Yearly B-12 05/16/2019 05/16/2018 BREAST CANCER SCREENING DISCUSSION YEARLY AGES 40-75 06/23/2019 06/23/2018, 05/09/2015, 07/12/2014, Additional history exists CKD GFR USE SMARTSET 09670 07/14/201901/12, 12/23/2018, 12/18/2018, Additional history exists CKD HGB USE SMARTSET 97086 12/24/201912/23, 12/08/2018, 06/06/2018, Additional history exists DIABETES-FOOT [...] For more information, please contact: [place] [phone] Latest Code Status on File Code Status [...]
--- OUTSIDE RECORDS SUMMARY | 2023-06-01 05:52 | External Medical Summary | Summary of Care ---
Author Name Unknown Organization [place] [address] Care Team Providers Care Journeyman Power Plant Operator Name Role Phone Kevin Whiteside DO Primary Care Provider Reason for Referral * Evaluate & Treat - Unlimited Visits (Within 10 days (routine)) Status Reason Specialty Diagnoses / Procedures Referred By Contact Referred To Contact Authorized Specialty Services Required Podiatry Diagnoses Pain in both feet Kevin Wh[facility]ide DO [facility] [address] Reason for Visit * Reason Comments Referral Requested by Specialist Encounter Details Date Type Department Care Team Description 01/16/2019 Telephone Family Practice [facility] 132 [facility] [place] [address] Frances Nicholson RN [facility] [place] [address] [phone] Referral Requested by Specialist Allergies Active Allergy Reactions Severity Noted Date Comments Heparin 09/04/2009 Heparin Induced Thrombocytopenia Empagliflozin Other (Please comment) Medium 05/17/2018 3 yeast infections in 6 weeks after starting Morphine And Related 09/16/1997 Hallucinations Tetanus Toxoid Other (Please comment) 06/15/2011 Passed out documented as of this encounter (statuses as of 01/18/2019) Medications Medication Sig Dispensed Refills Start Date [...] Tab 5 9 Active Vitamin D, Ergocalciferol, 99789 units CapsuleIndications: Vitamin D deficiency Take one capsule by mouth once a week 13 Cap 0 9 Active documented as of this encounter (statuses as of 01/18/2019) Active Problems Problem Noted Date Impetigo 09/27/2018 [...] as of this encounter (statuses as of 01/18/2019) Resolved Problems Problem Noted Date Resolved Date [...] as of this encounter (statuses as of 01/18/2019) Immunizations Name Dates Previously Given Next Due [...] Miscellaneous Notes * Telephone Encounter - Telma Batista OSA - 01/18/2019 10:02 AM EDT [facility] * Telephone Encounter - Krissy Baker DO - 01/16/2019 3:38 PM EDT Podiatry referral placed, please schedule * Telephone Encounter - Frances Nicholson RN - 01/16/2019 1:16 PM EDT Pt requesting referral to podiatry -reports having trouble with her feet-painful, other than neuropathy, she is asking if a podiatristcan eval? Pt would like to see podiatry at [facility] Order pend Please sign if agree Thanks, Frances Nicholson, salvage determiner [phone] documented in this encounter Plan of Treatment Upcoming Encounters Date Type Specialty Care Team Description 01/24/2019 Office Visit Nephrology Gia White MD 21 [facility] [place] [phone] 01/26/2019 Pharmacy Pharmacy [facility] [address] [place] [address] 02/23/2019 Office Visit Sleep Disorders Celsa Tafoya CRNP 132 [facility] [place] [address] [phone] 02/26/2019 Office Visit Family Medicine Kevin Whiteside DO [address] [place] [address] [phone] 02/28/2019 [facility] [address] [place] [address] [phone] 03/14/2019 Office Visit Cardiology Rey Woodall MD [address] [place] [phone] 05/04/2019 Office Visit Sleep Disorders Celsa Tafoya CRNP 132 [facility] [place] [address] [phone] Scheduled Referrals Name Priority Associated Diagnoses Order S chedule PODIATRY (DIABETES-EXTENDED) REFERRAL OP Within 10 days (routine) Pain in both feet Ordered: 01/16/2019 Health Maintenance Due Date Last Done Comments DIABETES-EYE EXAM 02/24/2011 02/24/2010 (Do ne elsewhere), 12/18/2009, 02/18/2008 (Done elsewhere) PAP SMEAR-EVERY 3 YRS,AGES 21-65 05/11/2016 05/11/2013, 03/01/2008, 10/19/2006, Additional history exists CKD PHOS USE SMARTSET 43147 12/29/2018 04/0 01/2018, 08/26/2009, 08/25/2009, Additional history exists DIABETES-HGBA1C EVERY 6 MONTHS 03/27/2019 09/27/2018, 05/01/2018, 12/29/2017, Additional history exists Yearly B-12 05/16/2019 05/16/2018 BREAST CANCER SCREENING DISCUSSION YEARLY AGES 40-75 06/23/2019 06/23/2018, 05/09/2015, 07/12/2014, Additional history exists CKD GFR USE SMARTSET 48992 07/14/201901/12, 12/23/2018, 12/18/2018, Additional history exists CKD HGB USE SMARTSET 50542 12/24/201912/23, 12/08/2018, 06/06/2018, Additional history exists DIABETES-FOOT [...] as of this encounter Visit Diagnoses Diagnosis Pain in both feet- Primary Pain in limb documented in this encounter Advance Directives Patient has advance care planning documents, and code status on file. For more information, please contact: [place] [phone] Latest Code Status on File Code Status [...]
--- OUTSIDE RECORDS SUMMARY | 2023-06-01 05:52 | External Medical Summary | Summary of Care ---
Author Name Unknown Organization [place] [address] Care Team Providers Care Electronic Equipment Installer Name Role Phone WhitesideKevin Primary Care Provider Reason for Visit * Reason Comments Hospital Follow-Up Urosepsis/ low BP * Evaluate & Treat - Unlimited Visits (Within 10 days (routine)) Status Reason Specialty Diagnoses / Procedures Referred By Contact Referred To Contact Authorized Specialty Services Required Cardiovascular Medicine Diagnoses Acute diastolic congestive heart failure (HCC) Sanjiv Tolliver DO 132 [facility] [address] Encounter Details Date Type Department Care Team Description 01/12/2019 Office Visit Cardiology, [facility] 132 [facility] [place] [address] Marjorie Powell PA-C 132 [place] [address] Chronic diastolic congestive heart failure (HCC)*; Statin intolerance; HTN, goal below 130/80; Venous insufficiency; ELISSA (obstructive sleep apnea) Allergies Active Allergy Reactions Severity Noted Date Comments Heparin 09/04/2009 Heparin Induced Thrombocytopenia Empagliflozin Other (Please comment) Medium 05/17/2018 3 yeast infections in 6 weeks after starting Morphine And Related 09/16/1997 Hallucinations Tetanus Toxoid Other (Please comment) 06/15/2011 Passed out documented as of this encounter (statuses as of 01/17/2019) Medications Medication Sig Dispensed Refills Start Date [...] day. 270 Cap 5 01/02/20 19 Active furosemide (LASIX) 80 MG Tablet Take 80 mg by mouth 2 times a day. Med was increased during hospitalization 0 Active spironolactone (ALDACTONE) 25 MG Tablet Take 0.5 Tabs by mouth daily. 45 Tab 5 01/13/20 19 Active spironolactone (ALDACTONE) 12.5 MG TABS Take by mouth daily. 0 019 Discontinued Vitamin D, Ergocalciferol, 57013 units CapsuleIndications :Vitamin D deficiency Take one capsule by mouth once a week 13 Cap 0 01/04/20 19 019 Discontinued documented as of this encounter (statuses as of 01/17/2019) Active Problems Problem Noted Date Impetigo 09/27/2018 [...] as of this encounter (statuses as of 01/17/2019) Resolved Problems Problem Noted Date Resolved Date [...] as of this encounter (statuses as of 01/17/2019) Immunizations Name Dates Previously Given Next Due [...] Vital Signs Vital Sign Reading Time Taken Blood Pressure 116/58 01/12/2019 3:08 PM EDT Pulse 100 01/12/2019 3:08 PM EDT Temperature - - Respiratory Rate 16 01/12/2019 3:08 PM EDT Oxygen Saturation - - Inhaled Oxygen Concentration - - Weight 154.6 kg (340 lb 12.8 oz) 2018 3:08 PM EDT Height - - Body Mass Index 58.12 01/12/2019 3:08 PM EDT documented in this encounter Progress Notes * Marjorie Powell PA-C - 01/16/2019 12:36 PM EDT Cardiology Hospital F/U: HPI: Patient is a 63-year-old female here today for close cardiology hospital follow-up. Last clinic evaluation approximately 3 months ago with the undersigned. She carries a history of morbid obesity, chronic respiratory failure/Pickwickian syndrome, diastolic heart failure, and ELISSA. She was admitted to [facility] in November 2018 with complaints of worsening shortness of breath. Hospital records reviewed in detail. She was diagnosed with acute on chronic diastolic heart failure complicated by chronic kidney disease. Cardiology was consulted and she was followed by Dr. Saeed. Symptoms improved with IV Lasix. Creatinine trended down with therapy. Nephrology was consulted. Patient was discharged on Lasix 80 mg twice daily and spironolactone 12.5 mg daily, magnesium 400 mg daily andgabapentin was reduced to hopefully prevent edema re-accumulating. Unfortunately approximately 1 week later patient was readmitted to [facility] with complaints of abdominal pain, fever and chills. She was diagnosed with urosepsis with positive blood cultures. Symptoms improved with antibiotic therapy. Infectious Disease was consulted. Cardiology was not consulted during this admission. She was discharged on same cardiac medications. She presents today feeling relatively well. She is down 8 lb since prior evaluation. She denies recurrent lower extremity edema. Blood pressure is controlled. Shortness of breath at baseline. No chest pain. No orthopnea, PND, lower extremity edema. No fever cough or chills. Review of Systems: See HPI for pertinent positives. All other 10 point review of systems is negative. History is very complex and includes: 1. Morbid obesity. 2. Obstructive sleep apnea on CPAP supplementation with nocturnal hypoxia on oxygen administration. 3. Hypertension. 4. Type 2 diabetes mellitus. 5. Chronic fibromyalgia. 6. History of bilateral pneumonia with extensive hospitalization in 2008 requiring extended intubation, Frank filter implantation with pulmonary embolus. 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 7. Hypertensive heart disease with diastolic HF. Patient Active Problem List Diagnosis Code Primary [...] CENTER) F33.0 Impetigo L01.00 Lumbar radiculopathy M54.16 Review of patient's allergies indicates: Allergen Reactions Jardiance [Empagliflozin] Other (Please comment) 3 yeast infections in 6 weeks after starting Heparin Heparin Induced Thrombocytopenia Morphine And Related Hallucinations Tetanus Toxoid Other (Please comment) Passed out Outpatient Medications Marked as Taking for the 01/12/19 encounter (Office Visit) with Marjorie Powell PA-C Medication Sig spironolactone (ALDACTONE) 25 MG Tablet Take 0.5 Tabs by mouth daily. furosemide (LASIX) 80 MG Tablet Take 80 mg by mouth 2 times a day. Med was increased during hospitalization [DISCONTINUED] Vitamin D, Ergocalciferol, 72819 units Capsule Take one capsule by mouth once a week gabapentin (NEURONTIN) 300 MG Capsule Take 1 Cap by mouth 3 times a day. metoprolol tartrate (LOPRESSOR) 25 MG Tablet Take 1 Tab by mouth 2 times a day. DULoxetine (CYMBALTA) 60 MG CPEP Take 1 Cap by mouth daily. Do not cut, crush or chew traMADol (ULTRAM) 50 MG Tablet Take 1 Tab by mouth every 6 hours as needed for Pain. insulin aspart (NOVOLOG FLEXPEN) 100 UNIT/ML SOPN inject 15 units with breakfast, 10 units withlunch and 18 units with dinner plus sliding scale up to 80 units per day. Insulin Degludec (TRESIBA FLEXTOUCH) 200 UNIT/ML SOPN Inject up to 160 units subcutaneously once daily as directed lisinopril (PRINIVIL) 2.5 MG Tablet Take 1 Tab by mouth daily. clonazePAM (KLONOPIN) 0.5 MG Tablet TAKE ONE TABLET BY MOUTH TWICE DAILY ACCU-CHEK SOFTCLIX LANCETS MISC Test sugar 3-4 times a day. Ok to substitute Fastclix lancets, if needed. Blood Glucose Monitoring Suppl (ACCU-CHEK HARRIS PLUS) w/Device KIT Use to test sugar 3-4 times daily. Glucose Blood (ACCU-CHEK HARRIS PLUS) STRP Test sugar 3-4 times a day. insulin aspart (NOVOLOG FLEXPEN) 100 UNIT/ML SOPN Inject 18 units breakfast, 10 units with lunch and 20 units with dinner plus sliding scale up to 100 units per day cyclobenzaprine (FLEXERIL) 10 MG Tablet TAKE ONE TABLET BY MOUTH AT BEDTIME NEEDED FOR MUSCLE SPASM Glucose Blood (ONETOUCH ULTRA BLUE) STRP Check sugars 3-4 times daily Insulin Pen Needle (BD PEN NEEDLE SHORT U/F) 31G X 8 MM Use 5 times daily with insulin levothyroxine (LEVOXYL) 200 MCG Tablet TAKE ONE TABLET BY MOUTH ONE TIME DAILY at least 30 minutes prior to breakfast or other meds levothyroxine (LEVOXYL) 25 MCG Tablet TAKE ONE TABLET BY MOUTH IN THE MORNING AT LEAST 30 MINUTES PRIOR TO BREAKFAST OR OTHER MEDS liraglutide (VICTOZA) 18 MG/3ML SOPN Inject 1.8 mg under the skin daily. As directed Nortriptyline HCl (PAMELOR) 50 MG Capsule Take 1 Cap by mouth at bedtime. ONETOUCH DELICA LANCETS 33G MISC Check blood sugars 3-4 times daily rOPINIRole (REQUIP) 1 MG Tablet Take 1 Tab by mouth at bedtime. MAG64 64 MG TBEC Take 64 mg by mouth 2 times a day. oxygen GAS 4 LPM bled through CPAP 11 cwp during all periods of sleep. PRILOSEC 20 MG PO CPDR one tablet daily PHYSICAL EXAMINATION: BP 116/58[Dinamap[ | Pulse 100 | Resp 16 | Wt 340 lbs 12.8 oz (154.586kg) | BMI 58.12 kg/m | BSA 2.65 m | LMP 03/11/2003 Wt Readings from Last 3 Encounters: 01/12/19 (!) 154.6 kg (340 lb 12.8 oz) 01/01/19 (!) 155.6 kg (343 lb) 12/18/18 (!) 157.9 kg (348 lb) GEN: A+O x3. NAD. Obese. HEENT exam is normocephalic and atraumatic. Nares without discharge. Throat was clear. Neck was supple without thyromegaly, lymphadenopathy. There is no distinct jugular venous distention at 30 degrees. Lungs revealed diminished breath sounds diffusely, but without rhonchi,rale, or wheeze. Cardiovascular exam is regular with occasional ectopic beats. Heart rate 80 to 100during examination. There is no audible murmur or rub. Abdomen is obese, soft with large panniculus. Extremities - no significant LE edema b/l. . Neurologically, patient is answering questions appropriately. DATA: Echocardiogram as described [facility] in May 2018 demonstrated hyperdynamic LV function. No valvular disease. No overt diastolic dysfunction. IMPRESSION: Complex 63-year-old female 1. chronic diastolic HF, symptoms improving with titration of diuretic. 2. History of hypertensive heart disease/diastolic dysfunction. 3. Morbid obesity - weight loss encouraged. 4. Chronic respiratory failure, hypoventilation syndrome. 5. Statin intolerance RECOMMENDATIONS: Blood work today to monitor electrolytes and renal function on current diuretics. CHF tools discussed including daily weights, salt/sodium/fluid restriction, and use of diuretic protocol. F/U with nephrology as scheduled. The patient agrees to the above plan and will call with additional questions or concerns. ER with all emergencies advised. Check-out note: Blood work today; keep appt as scheduled Marjorie Powell PA-C Department of Cardiology This chart was completed in part utilizing Sharelook Speech Voice Recognition Software. Grammatical errors, random [...] documented in this encounter Nursing Notes * Xenia Lima RN - 01/12/2019 3:02 PM EDT Examination Room: 6 Name: Stephanie Camp Date of : (1955). Reason for Visit: Hospital f/u Interim Hospitalization(s): [facility] [place] x 2 for urosepsis and heart failure Problems/Concerns: Since hospital discharge has been doing ok Chest Pain/SOB: Denied [facility] is a way you can talk to your provider online through e-mail. Would you like to sign up? I can activate it for you? InProcess documented in this encounter Miscellaneous Notes * Result Tasha Hercules RN - 01/17/2019 1:03 PM EDT Letter sent. 01/17/2019 * Result Marjorie Bhatia PA-C - 01/16/2019 4:53 PM EDT Renal dysfunction stable. Potassium upper limit of normal. Continue furosemide and spironolactone as prescribed. Keep f/u with nephrology as scheduled. No changes at this time. documented in this encounter Plan of Treatment Upcoming Encounters Date Type Specialty Care Team Description 01/24/2019 Office Visit Nephrology Gia White MD [address] [place] [address] [phone] 01/26/2019 Pharmacy Pharmacy [facility] [place] [address] [place] [address] 02/23/2019 Office Visit Sleep Disorders Celsa Tafoya CRNP [address] [place] [address] [phone] 02/26/2019 Office Visit Family Medicine Kevin Whiteside DO [address] [place] [address] [phone] 02/28/2019 Office Visit Gynecology Obstetrics Alvina Hi, CNM [address] [place] [address] [phone] 03/14/2019 Office Visit Cardiology Rey Woodall MD [address] [place] [address] 05/04/2019 Office Visit Sleep Disorders Celsa Tafoya CRNP [address] [place] [address] Health Maintenance Due Date Last Done Comments DIABETES-EYE EXAM 02/24/2011 02/24/2010 (Do ne elsewhere), 12/18/2009, 02/18/2008 (Done elsewhere) PAP SMEAR-EVERY 3 YRS,AGES 21-65 05/11/2016 05/11/2013, 03/01/2008, 10/19/2006, Additional history exists CKD PHOS USE SMARTSET 70889 12/29/2018 04/0 01/2018, 08/26/2009, 08/25/2009, Additional history exists DIABETES-HGBA1C EVERY 6 MONTHS 03/27/2019 09/27/2018, 05/01/2018, 12/29/2017, Additional history exists Yearly B-12 05/16/2019 05/16/2018 BREAST CANCER SCREENING DISCUSSION YEARLY AGES 40-75 06/23/2019 06/23/2018, 05/09/2015, 07/12/2014, Additional history exists CKD GFR USE SMARTSET 48176 07/14/201901/12, 12/23/2018, 12/18/2018, Additional history exists CKD HGB USE SMARTSET 89590 12/24/201912/23, 12/08/2018, 06/06/2018, Additional history exists DIABETES-FOOT [...] Diagnosis Comments BASIC METAB PANEL, BMP Routine 01/12/2019 4:01 PM EDT Chronic diastolic congestive heart failure (HCC) documented in this encounter Results * BASIC METAB PANEL, BMP (01/12/2019 4:01 PM EDT) BUN 54(H) 6 - 20 mg/dL [facility] CREATININE 1.6(H) Comment: GFR should be used to assess renal function.Plasma/Serum creatinine may not be able to properly reflect renal function in some cases. 0.5 - 1.0 mg/dL [facility] E GLOM FILT RATE 34.2(L)Comment:If sandy witt is , multiply estimated GFR by 1.159. >60 [facility] SODIUM 132(L) 135 - 146 mmol/L [facility] POTASSIUM 5.1 3.5 - 5.1 mmol/L [facility] CHLORIDE 94(L) 98 - 107 mmol/L [facility] CO2 20(L) 22 - 32 mmol/L [facility] ANION GAP 18(H) 7 - 15 mmol/L [facility] GLUCOSE 281(H) 70 - 120 mg/dL [facility] CALCIUM 9.3 8.4 - 10.2 mg/dL [facility] Performing Organization Address City/State/Zipcod e Phone Number [facility], [address] [facility] [place] [phone] documented in this encounter Visit Diagnoses Diagnosis Chronic diastolic congestive heart failure (HCC)- Primary Chronic diastolic heart failure Statin intolerance Other drug allergy HTN, goal below 130/80 Unspecified essential hypertension Venous insufficiency Unspecified venous (peripheral) insufficiency ELISSA (obstructive sleep apnea) Obstructive sleep apnea (adult) (pediatric) documented in this encounter Advance Directives Patient has advance care planning documents, and code status on file. For more information, please contact: [place] [phone] Latest Code Status on File Code Status [...]
--- OUTSIDE RECORDS SUMMARY | 2023-06-01 05:52 | External Medical Summary | Summary of Care ---
Author Name Unknown [place] [address] Care Team Providers Care Computer Repair Engineer Name Role Phone Kevin Whiteside Primary Care Provider Reason for Visit * Reason Comments eRx-Medication Refill Encounter Details Date Type Department Care Team Description 01/13/2019 Refill Nephrology 2nd Floor, [place] [address] [place] [address] Kendy White MD [address] [place] [address] Vitamin D deficiency Allergies Active Allergy Reactions Severity Noted Date Comments Heparin 09/04/2009 Heparin Induced Thrombocytopenia Empagliflozin Other (Please comment) Medium 05/17/2018 3 yeast infections in 6 weeks after starting Morphine And Related 09/16/1997 Hallucinations Tetanus Toxoid Other (Please comment) 06/15/2011 Passed out documented as of this encounter (statuses as of 01/13/2019) Medications Medication Sig Dispensed Refills Start Date [...] ([facility]),Hypoxemia,OS A (obstructive sleep apnea),HTN, goal below 130/80 [...] ([facility]),Hypoxemia,OS A (obstructive sleep apnea),HTN, goal below 140/80 [...] 5 01/13/20 19 Active Vitamin D, Ergocalciferol, 74278 units CapsuleIndications :Vitamin D deficiency Take one capsule by mouth once a week 13 Cap 0 01/14/20 19 Active Vitamin D, Ergocalciferol, 18981 units CapsuleIndications :Vitamin D deficiency Take one capsule by mouth once a week 13 Cap 0 01/04/20 19 019 Discontinued documented as of this encounter (statuses as of 01/13/2019) Active Problems Problem Noted Date Impetigo 09/27/2018 [...] as of this encounter (statuses as of 01/13/2019) Resolved Problems Problem Noted Date Resolved Date [...] as of this encounter (statuses as of 01/13/2019) Immunizations Name Dates Previously Given Next Due [...] Telephone Encounter - Kendy White MD - 01/13/2019 10:45 AM EDT Signed Prescriptions: Disp Refills Vitamin D, Ergocalciferol, 90012 units Cap*13 Cap 0 Sig: Take one capsule by mouth once a weekAuthorizing Provider: KENDY WHITE documented in this encounter Plan of Treatment Upcoming Encounters Date Type Specialty Care Team Description 01/17/2019 Pharmacy Pharmacy [address] [place] [address] 01/24/2019 Office Visit Nephrology Kendy White MD 21 [facility] [place] [id number] 02/23/2019 Office Visit Sleep Disorders Celsa Tafoya CRNP [address] [facility] [place] [id number] [phone] 02/26/2019 Office Visit Family Medicine Kevin Whiteside, [address] [facility] [place] [address] [phone] 02/28/2019 Office Visit Gynecology Obstetrics Alvina Hi, [address] [place] [id number] 03/14/2019 Office Visit Cardiology Rey Woodall MD [address] [facility] [place] [address] 05/04/2019 Office Visit Sleep Disorders Celsa Tafoya CRNP [address] [facility] [place] [address] Health Maintenance Due Date Last Done Comments DIABETES-EYE EXAM 02/24/2011 02/24/2010 (Do ne elsewhere), 12/18/2009, 02/18/2008 (Done elsewhere) PAP SMEAR-EVERY 3 YRS,AGES 21-65 05/11/2016 05/11/2013, 03/01/2008, 10/19/2006, Additional history exists CKD PHOS USE SMARTSET 43100 12/29/2018 04/0 01/2018, 08/26/2009, 08/25/2009, Additional history exists DIABETES-HGBA1C EVERY 6 MONTHS 03/27/2019 09/27/2018, 05/01/2018, 12/29/2017, Additional history exists Yearly B-12 05/16/2019 05/16/2018 BREAST CANCER SCREENING DISCUSSION YEARLY AGES 40-75 06/23/2019 06/23/2018, 05/09/2015, 07/12/2014, Additional history exists CKD GFR USE SMARTSET 29688 07/14/201901/12, 12/23/2018, 12/18/2018, Additional history exists CKD HGB USE SMARTSET 15071 12/24/201912/23, 12/08/2018, 06/06/2018, Additional history exists DIABETES-FOOT [...] deficiency documented in this encounter Advance Directives Patient has advance care planning documents, and code status on file. For more information, please contact: [place] [phone] Latest Code Status on File Code Status [...]
--- OUTSIDE RECORDS SUMMARY | 2023-06-01 05:52 | External Medical Summary ---
Author Name Unknown Address [address] [place] [facility] [place] [address] Phone Organization K01:[facility] [address] [id number] Laboratory Report Ordering Provider Test Date Status ARI CALDERON 01/12/2019 16:01:00 Final Observation Date Value Abnormality Reference Status BUN 01/12/2019 21:40 54 Above high normal 6-20 Final Creatinine 01/12/2019 21:40 1.6 Above high normal 0.5- 1.0 Final Performing Location [facility] [address] [facility] [address]
--- OUTSIDE RECORDS SUMMARY | 2023-06-01 05:52 | External Medical Summary | Summary of Care ---
Author Name Unknown Organization [place] [address] Care Team Providers Care Bay Stocker Name Role Phone Kevin Whiteside Primary Care Provider Reason for Visit * Reason Comments case management Encounter Details Date Type Department Care Team Description 01/09/2019 Telephone Internal Medicine [address] [address] Frances Nicholson RN [address] [place] [address] case management Allergies Active Allergy Reactions Severity Noted Date Comments Heparin 09/04/2009 Heparin Induced Thrombocytopenia Empagliflozin Other (Please comment) Medium 05/17/2018 3 yeast infections in 6 weeks after starting Morphine And Related 09/16/1997 Hallucinations Tetanus Toxoid Other (Please comment) 06/15/2011 Passed out documented as of this encounter (statuses as of 01/09/2019) Medications Medication Sig Dispensed Refills Start Date [...] (BMI) of 50.0 to 59.9 in adult ([facility]),Hypoxemia,ELISSA (obstructive sleep apnea),HTN, goal below 130/80 Take [...] (BMI) of 50.0 to 59.9 in adult ([facility]),Hypoxemia,ELISSA (obstructive sleep apnea),HTN, goal below 140/80 Take 1 Tab by mouth 2 times a day. 180 Tab 3 9 Active gabapentin (NEURONTIN) 300 MG CapsuleIndications: Type 2 diabetes mellitus with hemoglobin A1c goal of 7.0%-8.0% ([facility]) Take 1 Cap by mouth 3 times a day. 270 Cap 5 9 Active Vitamin D, Ergocalciferol, 12211 units CapsuleIndications: Vitamin D deficiency Take one capsule by mouth once a week 13 Cap 0 9 Active furosemide (LASIX) 80 MG Tablet Take 80 mg by mouth 2 times a day. Med was increased during hospitalization 0 Active documented as of this encounter (statuses as of 01/09/2019) Active Problems Problem Noted Date Impetigo 09/27/2018 [...] as of this encounter (statuses as of 01/09/2019) Resolved Problems Problem Noted Date Resolved Date [...] as of this encounter (statuses as of 01/09/2019) Immunizations Name Dates Previously Given Next Due [...] Telephone Encounter - Frances Nicholson RN - 01/09/2019 5:22 PM EDT PMH: DM, HTN, SOA with CPAP, history of PE, frank filter in place, dyslipidemia-statin intol, GERD, Fibromyalgia, depression/anxiety New-acute diastolic HF and ELSIE sent from PCP office abnormal labs and shortness of breath. x-ray concerning for atypical pneumonia 06/06/18-[facility] admit Acute respiratory failure with hypoxia and [...] on d/c 06/10/18 d/c from [facility] new on Lasix, potassium and Mg Stopped Metformin and HCTZ 12/08 [facility] admit acute decompensated diastolic HF Consulted Cardiology and nephrology 12/14/18 D/c to home Added Spirolactone Increased Lasix to 80 mg BID (4-6 hours apart) Weekly BMP x 4 weights and home BP cuff D/c weight 351.2 12/18-Dr Whiteside 01/12-cards 01/24-neph ROSA wk 2 Says she is feeling OK Having issues with [facility] scale and BP cuff-readings not coming thru Denies increased SOB -has been running back and forth to laundry room all day Uses O2 at HS. Denies increased swelling Denies any N/V or decreased appetite Denies diff with bowels or bladder Ongoing neuropathy, back pain-PCP increased Gabapentin at last OV and pt uses Tramadol for severe pain Reports that she uses cane for ambulation outside Made pt aware that [facility] attempting to contact her for scale instillation Instructed to weigh selt daily and need to report 3 lbs or more weight gain in 24 hours or 5 lbs ormore in a week. Also if more SOB and or more swelling, fatigue bloating or any other concerns. JIHAN SALDANA has met with pt and assisting with finding new lower rent apt Plan to contact pt next week Frances Nicholson RN, [facility] Mortar Mixer [phone] documented in this encounter Plan of Treatment Upcoming Encounters Date Type Specialty Care Team Description 01/12/2019 Office Visit Cardiology Marjorie Powell PA-C [address] [place] [address] [phone] 01/17/2019 Pharmacy Pharmacy [facility] [place] [address] [place] [address] 01/24/2019 Office Visit Nephrology Gia White MD [address] [place] [address] [phone] 02/23/2019 Office Visit Sleep Disorders Celsa Tafoya CRNP [address] [place] [address] [phone] 02/26/2019 Office Visit Family Medicine Kevin Whiteside DO [address] [place] [address] [phone] 02/28/2019 Office Visit Gynecology Obstetrics Alvina Hi, [place] [address] [place] [address] [phone] 03/14/2019 Office Visit Cardiology Rey Woodall MD [address] [place] [address] [phone] 05/04/2019 Office Visit Sleep Disorders Celsa Tafoya CRNP [address] [place] [address] [phone] Health Maintenance Due Date Last Done Comments DIABETES-EYE EXAM 02/24/2011 02/24/2010 (Do ne elsewhere), 12/18/2009, 02/18/2008 (Done elsewhere) PAP SMEAR-EVERY 3 YRS,AGES 21-65 05/11/2016 05/11/2013, 03/01/2008, 10/19/2006, Additional history exists CKD PHOS USE SMARTSET 51365 12/29/2018 04/0 01/2018, 08/26/2009, 08/25/2009, Additional history exists DIABETES-HGBA1C EVERY 6 MONTHS 03/27/2019 09/27/2018, 05/01/2018, 12/29/2017, Additional history exists Yearly B-12 05/16/2019 05/16/2018 BREAST CANCER SCREENING DISCUSSION YEARLY AGES 40-75 06/23/2019 06/23/2018, 05/09/2015, 07/12/2014, Additional history exists CKD GFR USE SMARTSET 61404 06/25/201912/23, 12/18/2018, 12/14/2018, Additional history exists CKD HGB USE SMARTSET 16002 12/24/201912/23, 12/08/2018, 06/06/2018, Additional history exists DIABETES-FOOT [...] For more information, please contact: [place] [phone] Latest Code Status on File Code Status [...]
--- OUTSIDE RECORDS SUMMARY | 2023-06-01 05:52 | External Medical Summary | Summary of Care ---
Author Name Unknown Organization [place] [address] Care Team Providers Care Order Clerk Name Role Phone WhitesideKevin Primary Care Provider Reason for Visit * Reason Comments Hospital Follow-Up Urosepsis/ low BP * Evaluate & Treat - Unlimited Visits (Within 10 days (routine)) Status Reason Specialty Diagnoses / Procedures Referred By Contact Referred To Contact Authorized Specialty Services Required Cardiovascular Medicine Diagnoses Acute diastolic congestive heart failure (HCC) Sanjiv Tolliver [facility] [address] Encounter Details Date Type Department Care Team Description 01/12/2019 Office Visit Cardiology, [facility] 132 [facility] [place] [address] Marjorie Powell PA-C [address] [place] [address] Chronic diastolic congestive heart failure (HCC)*; [...] times a day. 270 Cap 5 01/02/20 Active furosemide (LASIX) 80 MG Tablet Take 80 mg by mouth 2 times a day. Med was increased during hospitalization 0 Active spironolactone (ALDACTONE) 25 MG Tablet Take 0.5 Tabs by mouth daily. 45 Tab 5 01/13/20 19 Active spironolactone (ALDACTONE) 12.5 MG TABS Take by mouth daily. 0 019 Discontinued Vitamin D, Ergocalciferol, 55770 units CapsuleIndications :Vitamin D deficiency Take one [...] failure, and ELISSA. She was admitted to [facility] in November 2018 with complaints of worsening [...] 1 week later patient was readmitted to [facility] with complaints of abdominal pain, fever and [...] 7.0%-8.0% ([facility]) E11.9 Fibromyalgia M79.7 Abnormality of gait R26.9 Restless legs syndrome G25.81 Gastroesophageal reflux disease with esophagitis K21.0 Uncontrolled type 2 diabetes mellitus with stage 3 chronic kidney disease, with long-term current use of insulin ([facility]) E11.22, E11.65, N18.3, Z79.4 Body mass index (BMI) of 50.0 to 59.9 in adult ([facility]) Z68.43 Controlled substance agreement signed Z79.899 Chronic diastolic congestive heart failure ([facility]) I50.32 Thoracic back pain M54.6 Mild episode of recurrent major depressive disorder ([facility]) F33.0 Impetigo L01.00 Lumbar radiculopathy M54.16 Review [...] increased during hospitalization [DISCONTINUED] Vitamin D, Ergocalciferol, 19577 units Capsule Take one capsule by mouth [...] answering questions appropriately. DATA: Echocardiogram as described [facility] in May 2018 demonstrated hyperdynamic LV function. [...] Reason for Visit: Hospital f/u Interim Hospitalization(s): [facility] x 2 for urosepsis and heart failure Problems/Concerns: Since hospital discharge has been doing ok Chest Pain/SOB: Denied [facility] is a way you can talk to your provider online through e-mail. Would you like to sign up? I can activate it for you? InProcess documented in this encounter Miscellaneous Notes * Result QuickNote - Marjorie Powell PA-C - 01/16/2019 4:53 PM EDT Renal dysfunction stable. Potassium upper limit of normal. Continue furosemide and spironolactone as prescribed. Keep f/u with nephrology as scheduled. No changes at this time. documented in this encounter Plan of Treatment Upcoming Encounters Date Type Specialty Care Team Description 01/17/2019 Pharmacy Pharmacy [facility] [place] [address] [place] [address] 01/24/2019 Office Visit Nephrology Gia White MD [address] [place] [address] [phone] 02/23/2019 Office Visit Sleep Disorders Celsa Tafoya CRNP [address] [place] [address] [phone] 02/26/2019 Office Visit Family Medicine Kevin Whiteside DO [address] [place] [address] [phone] 02/28/2019 Office Visit Gynecology Obstetrics Alvina Hi [address] [place] [address] [phone] 03/14/2019 Office Visit Cardiology Rey Woodall MD [address] [place] [address] [phone] 05/04/2019 Office Visit Sleep Disorders Celsa Tafoya CRNP [address] [place] [address] Health Maintenance Due Date Last Done Comments DIABETES-EYE EXAM 02/24/2011 02/24/2010 (Do ne elsewhere), 12/18/2009, 02/18/2008 (Done elsewhere) PAP SMEAR-EVERY 3 YRS,AGES 21-65 05/11/2016 05/11/2013, 03/01/2008, 10/19/2006, Additional history exists CKD PHOS USE SMARTSET 29477 12/29/2018/01/2018, 08/26/2009, 08/25/2009, Additional history exists DIABETES-HGBA1C EVERY 6 MONTHS 03/27/2019 09/27/2018, 05/01/2018, 12/29/2017, Additional history exists Yearly B-12 05/16/2019 05/16/2018 BREAST CANCER SCREENING DISCUSSION YEARLY AGES 40-75 06/23/2019 06/23/2018, 05/09/2015, 07/12/2014, Additional history exists CKD GFR USE SMARTSET 05696 07/14/201901/12, 12/23/2018, 12/18/2018, Additional history exists CKD HGB USE SMARTSET 25744 12/24/201912/23, 12/08/2018, 06/06/2018, Additional history exists DIABETES-FOOT [...] EDT) BUN 54(H) 6 - 20 mg/dL [facility] CREATININE 1.6(H) Comment: GFR should be used to assess renal function.Plasma/Serum creatinine may not be able to properly reflect renal function in some cases. 0.5 - 1.0 mg/dL [facility] E GLOM FILT RATE 34.2(L)Comment:If sandy witt is , multiply estimated GFR by 1.159. >60 [facility] SODIUM 132(L) 135 - 146 mmol/L [facility] POTASSIUM 5.1 3.5 - 5.1 mmol/L [facility] CHLORIDE 94(L) 98 - 107 mmol/L [facility] CO2 20(L) 22 - 32 mmol/L [facility] ANION GAP 18(H) 7 - 15 mmol/L [facility] GLUCOSE 281(H) 70 - 120 mg/dL [facility] CALCIUM 9.3 8.4 - 10.2 mg/dL [facility] Performing Organization Address City/State/Zipcod e Phone Number [facility], [address] [facility] [place] [address] documented in this encounter Visit Diagnoses Diagnosis [...] For more information, please contact: [place] [phone] Latest Code Status on File Code Status [...]
--- OUTSIDE RECORDS SUMMARY | 2023-06-01 05:52 | External Medical Summary ---
Author Name Unknown Address Unknown Organization R:IT USE ONLY!!! Laboratory Report Ordering Provider Test Date Status MARYANN MILLAN 01/23/2019 16:23:00 Final Observation Date Value Abnormality Reference Status Source 01/23/2019 16:23 CLEAN CATCH URINE Final Bacteria XXX Cult 01/24/2019 17:40 LESS THAN 10, 000 COLONIES/ML MIXED NORMAL MELISSA Final REPORT STATUS 01/24/2019 17:40 01/24/2019 FINAL Final Performing Location IT USE ONLY!!!
--- OUTSIDE RECORDS SUMMARY | 2023-06-01 05:52 | External Medical Summary | Summary of Care ---
Author Name Unknown Organization [place] [address] Care Team Providers Care Senior Applications Developer Name Role Phone Kevin Whiteside Primary Care Provider Reason for Visit * Reason Comments case management Encounter Details Date Type Department Care Team Description 01/24/2019 Telephone Internal Medicine [address] [address] Frances Nicholson RN [address] [place] [address] case management Allergies Active Allergy [...] to 59.9 in adult ([facility]),Hypoxemia,ELISSA (obstructive sleep apnea),HTN, goal below [...] to 59.9 in adult ([facility]),Hypoxemia,ELISSA (obstructive sleep apnea),HTN, goal below [...] Tab 5 9 Active Vitamin D, Ergocalciferol, 89135 units CapsuleIndications: Vitamin D deficiency Take one [...] 10/14/2014 Overview: ICD-10 update of inactive term [place] filter in place 08/19/2014 History of pulmonary [...] Encounter - Frances Nicholson RN - 01/24/2019 4:48 PM EDT Call placed to home number listed in Epic. No answer, left message for return call on Frances Nicholson RN, [facility] Supervisor Weaving [phone] documented in this encounter Plan of Treatment Upcoming Encounters Date Type Specialty Care Team Description 01/26/2019 Pharmacy Pharmacy [facility] [place] [address] [place] [address] 02/23/2019 Office Visit Sleep Disorders Celsa Tafoya CRNP [address] [place] [address] [phone] 02/26/2019 Office Visit Family Medicine Kevin Whiteside [address] [place] [address] [phone] 02/28/2019 Office Visit Gynecology Obstetrics Alvina Hi, CNM [address] [place] [address] [phone] 03/14/2019 Office Visit Cardiology Rey Woodall MD [address] [place] [address] 05/04/2019 Office Visit Sleep Disorders Celsa Tafoya CRNP [address] [place] [address] Health Maintenance Due Date Last Done Comments DIABETES-EYE EXAM 02/24/2011 02/24/2010 (Do ne elsewhere), 12/18/2009, 02/18/2008 (Done elsewhere) PAP SMEAR-EVERY 3 YRS,AGES 21-65 05/11/2016 05/11/2013, 03/01/2008, 10/19/2006, Additional history exists CKD PHOS USE SMARTSET 82396 12/29/2018 04/0 01/2018, 08/26/2009, 08/25/2009, Additional history exists DIABETES-HGBA1C EVERY 6 MONTHS 03/27/2019 09/27/2018, 05/01/2018, 12/29/2017, Additional history exists Yearly B-12 05/16/2019 05/16/2018 BREAST CANCER SCREENING DISCUSSION YEARLY AGES 40-75 06/23/2019 06/23/2018, 05/09/2015, 07/12/2014, Additional history exists CKD GFR USE SMARTSET 45996 07/14/201901/12, 12/23/2018, 12/18/2018, Additional history exists CKD HGB USE SMARTSET 02122 12/24/201912/23, 12/08/2018, 06/06/2018, Additional history exists DIABETES-FOOT [...] For more information, please contact: [place] [phone] Latest Code Status on File Code Status [...]
--- OUTSIDE RECORDS SUMMARY | 2023-06-01 05:52 | External Medical Summary | Summary of Care ---
Author Name Unknown Organization [place] [address] Care Team Providers Care Embossing Clerk Name Role Phone Kevin Whiteside Primary Care Provider Reason for Visit * Reason Comments Urinary Tract Infection Symptoms Encounter Details Date Type Department Care Team Description 01/23/2019 Convenient Care Visit [facility] [address] [place] [address] Angi Barr PA-C [address] [place] [address] UTI symptoms* Allergies Active Allergy Reactions Severity Noted Date Comments Heparin 09/04/2009 Heparin Induced Thrombocytopenia Empagliflozin Other (Please comment) Medium 05/17/2018 3 yeast infections in 6 weeks after starting Morphine And Related 09/16/1997 Hallucinations Tetanus Toxoid Other (Please comment) 06/15/2011 Passed out documented as of this encounter (statuses as of 01/23/2019) Medications Medication Sig Dispensed Refills Start Date [...] (BMI) of 50.0 to 59.9 in adult ([facility]),Hypoxemia,ELISSA (obstructive sleep apnea),HTN, goal below [...] (BMI) of 50.0 to 59.9 in adult ([facility]),Hypoxemia,ELISSA (obstructive sleep apnea),HTN, goal below [...] Tab 5 9 Active Vitamin D, Ergocalciferol, 42076 units CapsuleIndications: Vitamin D deficiency Take one capsule by mouth once a week 13 Cap 0 9 Active cefdinir (OMNICEF) 300 MG CapsuleIndications: UTI symptoms Take 1 Cap by mouth every 12 hours for 7 days. For 10 days. 14 Cap 0 9 01/31/20 19 Active documented as of this encounter (statuses as of 01/23/2019) Active Problems Problem Noted Date Impetigo 09/27/2018 [...] 10/14/2014 Overview: ICD-10 update of inactive term [place] filter in place 08/19/2014 History of pulmonary [...] as of this encounter (statuses as of 01/23/2019) Resolved Problems Problem Noted Date Resolved Date [...] as of this encounter (statuses as of 01/23/2019) Immunizations Name Dates Previously Given Next Due [...] Vital Sign Reading Time Taken Blood Pressure 114/70 01/23/2019 3:50 PM EDT Pulse 111 01/23/2019 3:50 PM EDT Temperature 36.4 C (97.6 F) 01/23/2019 3 :50 PM EDT Respiratory Rate 18 01/23/2019 3:50 PM EDT Oxygen Saturation 92% 01/23/2019 3:5 0 PM EDT Inhaled Oxygen Concentration - - Weight 154.8 kg (341 lb 3.2 oz) 019 3:50 PM EDT Height 165.1 cm (5' 5") 01/23/2019 3:50 PM EDT Body Mass Index 56.78 01/23/2019 3:50 PM EDT documented in this encounter Progress Notes * Angi Barr PA-C - 01/23/2019 3:59 PM EDT CONVENIENT CARE PROGRESS NOTE Stephanie Camp is a 63 year old female who presents with urinary tract symptoms. Patient was accompanied by Self. HPI: Pt here c/o suprapubic tenderness, some discomfort with urination Noted she had a recent UTI, says she was septic and admitted to the hospital from 12/30 to 01/03. No hospital record for my review but did note from follow up note, listed as being on omincef for 10 days after hospital dc. Pt noted symptoms started up again 2 days after being on antibiotics, have beenoff and on for the last week almost. Called PCP today and nurse advised visit here. Blood sugars have been elevated as well. ELSIE noted in chart from 05/2018. Prior history of UTI: yes noted above Pt notes she has heart failure and on lasix, always has some urinary frequency. Has chronic low back pain, nothing new. No fever or vomiting. ROS: See HPI for pertinent positives and negatives. Patient denies addtional complaints. 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HCC) 06/12/2018 History of pulmonary embolus (PE) 07/16/2014 HTN, goal below 140/90 Obesity, BMI not known Perforation of intestine ([facility]) 1996 COLON -- 1996 Pneumonia in aspergillosis(484.6) 09/14/2009 Spontaneous pneumothorax 09/14/2009 Statin intolerance 07/16/2014 Type 2 diabetes mellitus with hemoglobin A1c goal of 7.0%-8.0% ([facility]) 10/14/2014 ICD-10 update of inactive term Vaginal karmen 07/13/2018 Past Surgical History: Procedure Laterality Date ARTHROPLASTY KNEE TOTAL Right 07/24/14 R COLONOSCOPY, DIAGNOSTIC (RECTUM) 02/18/2016 normal, repeat 10 yrs/[facility] COLONOSCOPY, GI REFERRAL OP 01/28/06 diverticulosis--repeat 10 years INCISION OF WIN[place], PLANNED 06/03/2011 TRACHEOSTOMY PLANNED performed by DANNY HOLDER at OR [facility] KNEE ARTHROSCOPY/DEBRIDEMENT 07/[address] PERMANENT GASTROSTOMY TUBE 09/06/09 GASTROSTOMY WITH CONSTUCTION GASTRIC TUBE performed by AMADOU NUNEZ at OR [facility] REMOVAL OF THYROID GLAND 06/15/2011 THYROIDECTOMY INCLUDING SUBSTERNAL THYROID CERVICAL APPROACH performed by DANNY HOLDER at OR [facility] REMOVE GALLBLADDER 09/06/09 CHOLECYSTECTOMY performed by AMADOU NUNEZ at OR [facility] REPAIR RECURRENT INCISIONAL HERNIA 1998 REVISION OF COLOSTOMY, SIMPLE 1997 SUTURE, LARGE INTESTINE W/COLOSTOMY 1996 perforation R colon with colostomy VENA CAVA FILTER/LIGATION/CLIP 08/19/09 Frank filter placement through the right femoral 08/19/[address] Lerma at [facility] Social History Socioeconomic History Marital status: Single Spouse name: Not on file Number of children: Not on file Years of education: Not on file Highest education level: Not on file Social Needs Financial resource strain: Not on file Food insecurity - worry: Not on file Food insecurity - inability: Not on file Transportation needs - medical: Not on file Transportation needs - non-medical: Not on file Occupational History Occupation: [employer] Employer: [employer] Occupation: [employer] Employer: [employer] [place][note 2[place]9 Tobacco Use Smoking status: Former Smoker Packs/day: 1.00 Years: 15.00 Pack years: 15.00 Last attempt to quit: 08/26/1997 Years since quittin.4 Smokeless tobacco: Never Used Substance and Sexual Activity Alcohol use: Yes Comment: rare Drug use: No Sexual activity: Not on file Other Topics Concern Not on file Social History Narrative 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 45 Tab 5 furosemide (LASIX) 80 MG Tablet Take 80 mg by mouth 2 times a day. Med was increased during hospitalization gabapentin (NEURONTIN) 300 MG Capsule Take 1 [...] Other (Please comment) Passed out OBJECTIVE: BP 114/70 | Pulse 111 | Temp (Src) 97.6 (Tympanic) | Resp 18 | Ht 5' 5" (1.651m) | Wt 341 lbs 3.2 oz (154.767kg) | BMI 56.78 kg/m | BSA 2.66 m | SaO2 92% | LMP 03/11/2003 Wt Readings from Last 1 Encounters: 01/23/19 (!) 154.8 kg (341 lb 3.2 oz) General appearance: awake, alert, no apparent distress Abdominal Exam: BS x 4. +suprapubic tenderness to palpation, no M/R/G Back: no CVA tenderness, some lower back tenderness noted Respiratory: clear to auscultation, no rhonchi, no wheezes and no crackles Heart: regular rate, regular rhythm, no murmurs , no rubs and no gallops Skin/Integumentary: warm, dry. No rashes or lesions. Results for orders placed or performed in visit on 01/23/19 SITE DIP,DIPSTICK ONLY(03246) Result Value Ref Range COLOR, UA yellow [...] neg ESTERASE, UA neg neg - neg *Note: Due to a large number of results and/or encounters for the requested time period, some results have not been displayed. A complete set of results can be found in Results Review. Assessment: R39.9 Uti symptoms (primary encounter diagnosis) Plan: Site dip,dipstick only(26404) Culture quant urine Cefdinir 300 mg po caps Sig:Take 1 cap by mouth every 12 hours for 7 days. for 10 days. Dipstick not impressive. symptoms started after completion of antibiotic, with recent hopsitalization, will restart omincef. Send culture and call with results. Take medication as directed. Finish full course as prescribed. Drink plenty of fluids and rest. We will call with the results of your urine testing once completed and if needed will make any changes to treatment based on the results of the culture. Follow-up with PCP if not improving within 2-3 days, sooner if worsening (i.e. Fevers, shaking chills, vomiting, back pain) despite above treatment plan Patient goals for plan of care were discussed. Angi Barr PA-C [address] [address] documented in this encounter Nursing Notes * Sadia Aguilar LPN - 01/23/2019 3:50 PM EDT Stephanie Camp,is a 63 year old female, who presents to the walk in clinic today c/o uti symptoms: suprapubic pain, low output, back pain since last Tuesday. Did not use any OTC meds. documented in this encounter Plan of Treatment Upcoming Encounters Date Type Specialty Care Team Description 01/24/2019 Office Visit Nephrology Gia White MD [address] [place] [id number] 01/26/2019 Pharmacy Pharmacy [address] [place] [address] 02/23/2019 Office Visit Sleep Disorders [facility] [place] [address] [phone] 02/26/2019 Office Visit Family Medicine Kevin Whiteside DO [address] [place] [address] [phone] 02/28/2019 Office Visit Gynecology Obstetrics Alvina Hi, [facility] [address] [facility] [place] [address] [phone] 03/14/2019 Office Visit Cardiology Rey Woodall MD [address] [place] [address] 05/04/2019 Office Visit Sleep Disorders [facility] [place] [id number] Scheduled Tests Name Priority Associated Diagnoses Order S chedule CULTURE QUANT URINE Routine UTI symptoms Ordered: 01/23/2019 Health Maintenance Due Date Last Done Comments DIABETES-EYE EXAM 02/24/2011 02/24/2010 (Do ne elsewhere), 12/18/2009, 02/18/2008 (Done elsewhere) PAP SMEAR-EVERY 3 YRS,AGES 21-65 05/11/2016 05/11/2013, 03/01/2008, 10/19/2006, Additional history exists CKD PHOS USE SMARTSET 43437 12/29/2018 04/01/2018, 08/26/2009, 08/25/2009, Additional history exists DIABETES-HGBA1C EVERY 6 MONTHS 03/27/2019 09/27/2018, 05/01/2018, 12/29/2017, Additional history exists Yearly B-12 05/16/2019 05/16/2018 BREAST CANCER SCREENING DISCUSSION YEARLY AGES 40-75 06/23/2019 06/23/2018, 05/09/2015, 07/12/2014, Additional history exists CKD GFR USE SMARTSET 02784 07/14/201901/12, 12/23/2018, 12/18/2018, Additional history exists CKD HGB USE SMARTSET 25068 12/24/201912/23, 12/08/2018, 06/06/2018, Additional history exists DIABETES-FOOT [...] Priority Date/Time Associated Diagnosis Comments SITE DIP,DIPSTICK ONLY(97335) Routine 01/23/2019 4:03 PM EDT UTI symptoms documented in this encounter Results * SITE DIP,DIPSTICK ONLY(77138) (01/23/2019 4:03 PM EDT) COLOR, UA yellow yellow - clive CLARITY, [...] neg ESTERASE, UA neg neg - neg Specimen Urine documented in this encounter Visit Diagnoses Diagnosis UTI symptoms- Primary Other symptoms involving urinary system documented in this encounter Advance Directives Patient has advance care planning documents, and code status on file. For more information, please contact: [place] [phone] Latest Code Status on File Code Status [...]
--- OUTSIDE RECORDS SUMMARY | 2023-06-01 05:53 | External Medical Summary | Summary of Care ---
Author Name Unknown Organization [place] [address] Care Team Providers Care Medical Transcription Editor Name Role Phone Kevin Whiteside Primary Care Provider Reason for Visit * Reason Comments Appointment Encounter Details Date Type Department Care Team Description 12/27/2018 Telephone Sleep Disorders, [facility] [address] [facility] [place] [address] Celsa Tafoya CRNP [address] [place] [address] Appointment Allergies Active Allergy Reactions Severity Noted Date Comments Heparin 09/04/2009 Heparin Induced Thrombocytopenia Empagliflozin Other (Please comment) Medium 05/17/2018 3 yeast infections in 6 weeks after starting Morphine And Related 09/16/1997 Hallucinations Tetanus Toxoid Other (Please comment) 06/15/2011 Passed out documented as of this encounter (statuses as of 12/28/2018) Medications Medication Sig Dispensed Refills Start Date [...] other meds 90 Tab 5 08/01/2018 Active levothyroxine (LEVOXYL) 25 MCG TabletIndications:P ostsurgical hypothyroidism TAKE ONE TABLET BY MOUTH IN THE MORNING AT LEAST 30 MINUTES PRIOR TO BREAKFAST OR OTHER MEDS 90 Tab 1 08/01/2018 Active liraglutide (VICTOZA) 18 MG/3ML SOPNIndications:DM [...] at bedtime. 90 Tab 4 08/01/2018 Active metoprolol tartrate (LOPRESSOR) 25 MG TabletIndications:H TN, goal below 130/80,Acute diastolic congestive heart failure (HCC),Body mass index (BMI) of 50.0 to 59.9 in adult (HCC),Hypoxemia,ELISSA (obstructive sleep apnea),HTN, goal below 140/80 Take 2 Tabs by mouth 2 times a day. 360 Tab 3 08/01/2018 Active Glucose Blood (ONETOUCH ULTRA BLUE) STRP Check sugars 3-4 times daily 360 Strip 5 08/01/2018 Active ONETOUCH DELICA LANCETS 33G MISC Check blood sugars 3-4 times daily 180 Each 5 08/01/2018 Active ergocalciferol (VITAMIN D2,DRISDOL,) 42622 UNIT CapsuleIndications: Vitamin D deficiency Take 1 Cap by mouth once a week. 13 Cap 1 08/02/2018 Active insulin aspart (NOVOLOG FLEXPEN) 100 UNIT/ML SOPN Inject 18 units breakfast, 10 units with lunch and 20 units with dinner plus sliding scale up to 100 units per day 10 Pre-filled Pen Syringe Dosing Unit 5 08/24/2018 Active Blood Glucose Monitoring Suppl (ACCU-CHEK HARRIS PLUS) w/Device KIT Use to test sugar 3-4 times daily. 1 Kit 0 08/30/2018 Active Glucose Blood (ACCU-CHEK HARRIS PLUS) STRP Test sugar 3-4 times a day. 400 Strip 3 08/30/2018 Active ACCU-CHEK SOFTCLIX LANCETS MISC Test sugar 3-4 times a day. Ok to substitute Fastclix lancets, if needed. 400 Box Dosing Unit 3 08/30/2018 Active clonazePAM (KLONOPIN) 0.5 MG TabletIndications:A nxiety state TAKE ONE TABLET BY MOUTH TWICE DAILY 180 Tab 3 09/11/2018 Active furosemide (LASIX) 80 MG TabletIndications:A cute diastolic congestive heart failure (HCC) Take 1 Tab by mouth daily. Take an additional tablet as directed or needed for fluid retention 60 Tab 3 10/23/2018 Active lisinopril (PRINIVIL) 2.5 MG TabletIndications:H TN, [...] as directed 9 mL 5 11/22/2018 Active insulin aspart (NOVOLOG FLEXPEN) 100 UNIT/ML SOPN inject 15 units with breakfast, 10 units with lunch and 18 units with dinner plus sliding scale up to 80 units per day. 15 mL 4 12/01/2018 Active spironolactone (ALDACTONE) 12.5 MG TABS Take by mouth daily. 0 Active gabapentin (NEURONTIN) 100 MG Capsule Take 100 mg by mouth 3 times a day. 0 Active DULoxetine (CYMBALTA) 60 MG CPEPIndications:Fib romyalgia,Moderate episode of recurrent major depressive disorder (HCC),Primary osteoarthritis of both knees Take 1 Cap by mouth daily. Do not cut, crush or chew 90 Cap 5 12/18/2018 Active traMADol (ULTRAM) 50 MG Tablet Take 1 Tab by mouth every 6 hours as needed for Pain. 30 Tab 0 12/18/2018 Active documented as of this encounter (statuses as of 12/28/2018) Active Problems Problem Noted Date Impetigo 09/27/2018 [...] 10/14/2014 Overview: ICD-10 update of inactive term [place] filter in place 08/19/2014 History of pulmonary [...] as of this encounter (statuses as of 12/28/2018) Resolved Problems Problem Noted Date Resolved Date [...] as of this encounter (statuses as of 12/28/2018) Immunizations Name Dates Previously Given Next Due [...] Telephone Encounter - Rema Barroso OSA - 12/28/2018 1:07 PM EDT Pt was admitted to [facility] at time of study. SWP, sleep study rescheduled to 02/14, follow up rescheduled to 02/23 * Telephone Encounter - Rema Barroso OSA - 12/27/2018 12:16 PM EDT Pt was a no show to sleep study at [facility] on 12/25 documented in this encounter Plan of Treatment Upcoming Encounters Date Type Specialty Care Team Description 01/01/2019 Office Visit Family Medicine Kevin Whiteside DO [address] [place] [address] [phone] 01/12/2019 Office Visit Cardiology Marjorie Powell PA-C [address] [place] [address] [phone] 01/17/2019 Pharmacy Pharmacy [facility] [place] [address] [place] [address] 01/24/2019 Office Visit Nephrology Gia White MD [address] [place] [address] 02/23/2019 Office Visit Sleep Disorders Celsa Tafoya CRNP [address] [place] [address] [phone] 02/26/2019 Office Visit Family Medicine Kevin Whiteside DO [address] [place] [address] [phone] 03/14/2019 Office Visit Cardiology Rey Woodall MD [address] [place] [id number] 05/04/2019 Office Visit Sleep Disorders Celsa Tafoya CRNP [address] [place] [address] [phone] Health Maintenance Due Date Last Done Comments DIABETES-EYE EXAM 02/24/2011 02/24/2010 (Do ne elsewhere), 12/18/2009, 02/18/2008 (Done elsewhere) PAP SMEAR-EVERY 3 YRS,AGES 21-65 05/11/2016 05/11/2013, 03/01/2008, 10/19/2006, Additional history exists CKD PHOS USE SMARTSET 50306 12/29/2018 04/01/2018, 08/26/2009, 08/25/2009, Additional history exists DIABETES-FOOT EXAM 12/29/2018 12/29/2017, 0 10/21/2016, 12/11/2015, Additional history exists DIABETES-HGBA1C EVERY 6 MONTHS 03/27/2019 09/27/2018, 05/01/2018, 12/29/2017, Additional history exists Yearly B-12 05/16/2019 05/16/2018 BREAST CANCER SCREENING DISCUSSION YEARLY AGES 40-75 06/23/2019 06/23/2018, 05/09/2015, 07/12/2014, Additional history exists CKD GFR USE SMARTSET 62167 06/25/201912/23, 12/18/2018, 12/14/2018, Additional history exists CKD HGB USE SMARTSET 28187 12/24/201912/23, 12/08/2018, 06/06/2018, Additional history exists PNEUMOCOCCAL 19-64 MEDIUM RISK [...] For more information, please contact: [place] [phone] Latest Code Status on File Code Status [...]
--- OUTSIDE RECORDS SUMMARY | 2023-06-01 05:53 | External Medical Summary | Summary of Care ---
Author Name Unknown Organization [place] [address] Care Team Providers Care Health Director Name Role Phone Kevin Whiteside Primary Care Provider Reason for Visit * Reason Comments Advice Encounter Details Date Type Department Care Team Description 01/02/2019 Telephone Internal Medicine [address] [address] Frances Nicholson, RN [address] [place] [address] Advice Allergies Active Allergy Reactions Severity Noted Date Comments Heparin 09/04/2009 Heparin Induced Thrombocytopenia Empagliflozin Other (Please comment) Medium 05/17/2018 3 yeast infections in 6 weeks after starting Morphine And Related 09/16/1997 Hallucinations Tetanus Toxoid Other (Please comment) 06/15/2011 Passed out documented as of this encounter (statuses as of 01/02/2019) Medications Medication Sig Dispensed Refills Start Date [...] Each 5 08/01/2018 Active ergocalciferol (VITAMIN D2,DRISDOL,) 63768 UNIT CapsuleIndications: Vitamin D deficiency Take 1 [...] TABS Take by mouth daily. 0 Active DULoxetine (CYMBALTA) 60 MG CPEPIndications:Fib romyalgia,Moderate episode of recurrent major depressive disorder (HCC),Primary osteoarthritis of both knees Take 1 Cap by mouth daily. Do not cut, crush or chew 90 Cap 5 12/18/2018 Active traMADol (ULTRAM) 50 MG Tablet Take 1 Tab by mouth every 6 hours as needed for Pain. 30 Tab 0 12/18/2018 Active cefdinir (OMNICEF) 300 MG Capsule Take 300 mg by mouth 2 times a day. 0 12/28/2018 01/09/20 19 Active metoprolol tartrate (LOPRESSOR) 25 MG TabletIndications:H TN, goal below 130/80,Acute diastolic congestive heart failure (HCC),Body mass index (BMI) of 50.0 to 59.9 in adult (HCC),Hypoxemia,ELISSA (obstructive sleep apnea),HTN, goal below 140/80 Take 1 Tab by mouth 2 times a day. 180 Tab 3 01/01/2019 Active gabapentin (NEURONTIN) 300 MG CapsuleIndications: Type 2 diabetes mellitus with hemoglobin A1c goal of 7.0%-8.0% ([facility]) Take 1 Cap by mouth 3 times a day. 270 Cap 5 01/01/2019 Active fluconazole (DIFLUCAN) 150 MG TabletIndications:V aginal karmen Take 1 Tab by mouth once for 1 dose. 1 Tab 1 01/02/2019 01/03/20 19 Active documented as of this encounter (statuses as of 01/02/2019) Active Problems Problem Noted Date Impetigo 09/27/2018 [...] 10/14/2014 Overview: ICD-10 update of inactive term [place] filter in place 08/19/2014 History of pulmonary [...] as of this encounter (statuses as of 01/02/2019) Resolved Problems Problem Noted Date Resolved Date [...] as of this encounter (statuses as of 01/02/2019) Immunizations Name Dates Previously Given Next Due [...] Telephone Encounter - Izabela Crump LPN - 01/02/2019 3:29 PM EDT Pt aware and verbalized understanding. * Telephone Encounter - Kevin Whiteside DO - 01/02/2019 3:18 PM EDT Placed order for 1 dose diflucan with one refill for second dose 3 days later if sx still not resolving. * Telephone Encounter - Frances Nicholson RN - 01/02/2019 2:57 PM EDT Pt c/o vaginal itching, some white discharge Also c/o mouth starting to get sore Pt on Omnicef x 12 days post hosp Please advise Thanks, Frances Nicholson RN, [facility] Patient Relations Liaison [phone] documented in this encounter Plan of Treatment Upcoming Encounters Date Type Specialty Care Team Description 01/12/2019 Office Visit Cardiology Marjorie Powell PA-C [address] [facility] [place] [address] [phone] 01/17/2019 Pharmacy Pharmacy [facility] [address] [place] [address] 01/24/2019 Office Visit [facility] [place] [id number] [phone] 02/23/2019 Office Visit Sleep Disorders Celsa Tafoya CRNP [address] [place] [address] [phone] 02/26/2019 Office Visit Family Medicine Kevin Whiteside DO [address] [place] [address] [phone] 02/28/2019 Office Visit Gynecology Obstetrics Alvina Hi, [facility] [address] [facility] [place] [id number] 03/14/2019 Office Visit Cardiology Rey Woodall MD [address] [place] [phone] 05/04/2019 Office Visit Sleep Disorders Celsa Tafoya CRNP [address] [place] [address] Health Maintenance Due Date Last Done Comments DIABETES-EYE EXAM 02/24/2011 02/24/2010 (Do ne elsewhere), 12/18/2009, 02/18/2008 (Done elsewhere) PAP SMEAR-EVERY 3 YRS,AGES 21-65 05/11/2016 05/11/2013, 03/01/2008, 10/19/2006, Additional history exists CKD PHOS USE SMARTSET 21634 12/29/2018 04/0 01/2018, 08/26/2009, 08/25/2009, Additional history exists DIABETES-HGBA1C EVERY 6 MONTHS 03/27/2019 09/27/2018, 05/01/2018, 12/29/2017, Additional history exists Yearly B-12 05/16/2019 05/16/2018 BREAST CANCER SCREENING DISCUSSION YEARLY AGES 40-75 06/23/2019 06/23/2018, 05/09/2015, 07/12/2014, Additional history exists CKD GFR USE SMARTSET 77902 06/25/201912/23, 12/18/2018, 12/14/2018, Additional history exists CKD HGB USE SMARTSET 26267 12/24/201912/23, 12/08/2018, 06/06/2018, Additional history exists DIABETES-FOOT [...] as of this encounter Visit Diagnoses Diagnosis Vaginal karmen- Primary Candidiasis of vulva and vagina documented in this encounter Advance Directives Patient has advance care planning documents, and code status on file. For more information, please contact: [place] [phone] Latest Code Status on File Code Status [...]
--- OUTSIDE RECORDS SUMMARY | 2023-06-01 05:53 | External Medical Summary | Summary of Care ---
Author Name Unknown Organization [place] [address] Care Team Providers Care Talent Associate Name Role Phone Kevin Whiteside Primary Care Provider Reason for Visit * Reason Comments Advice Encounter Details Date Type Department Care Team Description 01/02/2019 Telephone Internal Medicine [address] [address] Frances Nicholson, RN 132 [place] [address] Advice Allergies Active Allergy Reactions [...] Each 5 08/01/2018 Active ergocalciferol (VITAMIN D2,DRISDOL,) 68420 UNIT CapsuleIndications: Vitamin D deficiency Take 1 [...] 10/14/2014 Overview: ICD-10 update of inactive term [place] filter in place 08/19/2014 History of pulmonary [...] hosp Please advise Thanks, Frances Nicholson RN, [facility] Senior Linux Unix Engineer [phone] documented in this encounter Plan of Treatment Upcoming Encounters Date Type Specialty Care Team Description 01/12/2019 Office Visit Cardiology Marjorie Powell PA-C 132 [facility] [place] [address] [phone] 01/17/2019 Pharmacy Pharmacy [facility] 132 [place] [address] 01/24/2019 Office Visit Nephrology Gia White MD 21 [facility] [place] [id number] [phone] 02/23/2019 Office Visit Sleep Disorders Celsa Tafoya CRNP 132 [place] [id number] [phone] 02/26/2019 Office Visit Family Medicine Kevin Whiteside DO 132 [place] [address] [phone] 02/28/2019 Office Visit Gynecology Obstetrics Al[place]ina Hi, [facility] 400 [facility] [place] [id number] 03/14/2019 Office Visit Cardiology Rey Woodall MD 132 [place] [phone] 05/04/2019 Office Visit Sleep Disorders Celsa Tafoya CRNP 132 [place] [address] Health Maintenance Due Date Last Done Comments DIABETES-EYE EXAM 02/24/2011 02/24/2010 (Do ne elsewhere), 12/18/2009, 02/18/2008 (Done elsewhere) PAP SMEAR-EVERY 3 YRS,AGES 21-65 05/11/2016 05/11/2013, 03/01/2008, 10/19/2006, Additional history exists CKD PHOS USE SMARTSET 45595 12/29/2018 04/0 01/2018, 08/26/2009, 08/25/2009, Additional history exists DIABETES-HGBA1C EVERY 6 MONTHS 03/27/2019 09/27/2018, 05/01/2018, 12/29/2017, Additional history exists Yearly B-12 05/16/2019 05/16/2018 BREAST CANCER SCREENING DISCUSSION YEARLY AGES 40-75 06/23/2019 06/23/2018, 05/09/2015, 07/12/2014, Additional history exists CKD GFR USE SMARTSET 53030 06/25/201912/23, 12/18/2018, 12/14/2018, Additional history exists CKD HGB USE SMARTSET 29301 12/24/201912/23, 12/08/2018, 06/06/2018, Additional history exists DIABETES-FOOT [...] For more information, please contact: [place] [phone] Latest Code Status on File Code Status [...]
--- OUTSIDE RECORDS SUMMARY | 2023-06-01 05:53 | External Medical Summary | Summary of Care ---
Author Name Unknown Organization [place] [address] Care Team Providers Care Producer Arborist Manager Name Role Phone Kevin Whiteside Primary Care Provider Reason for Visit * Reason Comments Appointment Encounter Details Date Type Department Care Team Description 12/27/2018 Telephone [facility] Disorders, [facility] [address] Celsa Tafoya CRNP 132 [place] [address] Appointment Allergies Active Allergy Reactions Severity Noted Date Comments Heparin 09/04/2009 Heparin Induced Thrombocytopenia Empagliflozin Other (Please comment) Medium 05/17/2018 3 yeast infections in 6 weeks after starting Morphine And Related 09/16/1997 Hallucinations Tetanus Toxoid Other (Please comment) 06/15/2011 Passed out documented as of this encounter (statuses as of 12/27/2018) Medications Medication Sig Dispensed Refills Start Date [...] Each 5 08/01/2018 Active ergocalciferol (VITAMIN D2,DRISDOL,) 92767 UNIT CapsuleIndications: Vitamin D deficiency Take 1 [...] as of this encounter (statuses as of 12/27/2018) Active Problems Problem Noted Date Impetigo 09/27/2018 [...] 10/14/2014 Overview: ICD-10 update of inactive term [place] filter in place 08/19/2014 History of pulmonary [...] as of this encounter (statuses as of 12/27/2018) Resolved Problems Problem Noted Date Resolved Date [...] as of this encounter (statuses as of 12/27/2018) Immunizations Name Dates Previously Given Next Due [...] a no show to sleep study at [facility] on 12/25 documented in this encounter Plan of Treatment Upcoming Encounters Date Type Specialty Care Team Description 01/11/2019 Office Visit Sleep Disorders Celsa Tafoya CRNP [address] [place] [address] [phone] 01/12/2019 Office Visit Cardiology Marjorie Powell PA-C 132 [place] [address] [phone] 01/17/2019 Pharmacy Pharmacy [facility] [place] 132 [place] [address] 01/24/2019 Office Visit Nephrology Gia White MD 21 [facility] [place] [address] [phone] 02/26/2019 Office Visit Family Medicine Kevin Whiteside DO 132 [place] [address] [phone] 03/14/2019 Office Visit Cardiology Rey Woodall MD 132 [place] [address] [phone] 05/04/2019 Office Visit Sleep Disorders Celsa Tafoya CRNP 132 [place] [address] Health Maintenance Due Date Last Done Comments DIABETES-EYE EXAM 02/24/2011 02/24/2010 (Do ne elsewhere), 12/18/2009, 02/18/2008 (Done elsewhere) PAP SMEAR-EVERY 3 YRS,AGES 21-65 05/11/2016 05/11/2013, 03/01/2008, 10/19/2006, Additional history exists CKD PHOS USE SMARTSET 74799 12/29/2018 04/0 01/2018, 08/26/2009, 08/25/2009, Additional history exists DIABETES-FOOT EXAM 12/29/2018 12/29/2017, 0 10/21/2016, 12/11/2015, Additional history exists DIABETES-HGBA1C EVERY 6 MONTHS 03/27/2019 09/27/2018, 05/01/2018, 12/29/2017, Additional history exists Yearly B-12 05/16/2019 05/16/2018 BREAST CANCER SCREENING DISCUSSION YEARLY AGES 40-75 06/23/2019 06/23/2018, 05/09/2015, 07/12/2014, Additional history exists CKD GFR USE SMARTSET 22649 06/25/201912/23, 12/18/2018, 12/14/2018, Additional history exists CKD HGB USE SMARTSET 07919 12/24/201912/23, 12/08/2018, 06/06/2018, Additional history exists PNEUMOCOCCAL [...] For more information, please contact: [place] [phone] Latest Code Status on File Code Status [...]
--- OUTSIDE RECORDS SUMMARY | 2023-06-01 05:53 | External Medical Summary | Summary of Care ---
Author Name Unknown Organization [place] [address] Care Team Providers Care Back Padder Name Role Phone Kevin Whiteside DO Primary Care Provider Reason for Referral * Evaluate & Treat - Unlimited Visits (Within 10 days (routine)) Status Reason Specialty Diagnoses / Procedures Referred By Contact Referred To Contact Authorized Specialty Services Required Ophthalmology Diagnoses Type 2 diabetes mellitus with hemoglobin A1c goal of 7.0%-8.0% ([facility]) Kevin Whiteside DO 132 [place] [address] Reason for Visit * Reason Comments Referral Requested by Specialist Encounter Details Date Type Department Care Team Description 01/03/2019 Telephone Internal Medicine [address] [address] Frances Nicholson, RN 132 [place] [address] Referral Requested by Specialist Allergies [...] Referral and demographics faxed Frances Nicholson RN, [facility] [employer] [phone] * Telephone Encounter - Kevin Whiteside DO - 01/03/2019 12:56 PM EDT Signed, thank you. * Telephone Encounter - Frances Nicholson RN - 01/03/2019 9:28 AM EDT Pt willing to set up diabetic eye exam Scheduled for 04/05/19 @ 2:15 pm, pt aware Please sign referral if agree -will fax to [facility] [phone] Thanks, Frances Nicholson, religious education teacher [phone] documented in this encounter Plan of Treatment Upcoming Encounters Date Type Specialty Care Team Description 01/12/2019 Office Visit Cardiology Marjorie Powell PA-C [address] [place] [address] [phone] 01/17/2019 Pharmacy Pharmacy [facility] 132 [place] [address] 01/24/2019 Office Visit Nephrology Gia White MD 21 [facility] [place] [id number] [phone] 02/23/2019 Office Visit Sleep Disorders Celsa Tafoya CRNP [address] [place] [address] [phone] 02/26/2019 Office Visit Family Medicine Kevin Whiteside DO [address] [place] [address] 02/28/2019 Office Visit Gynecology Obstetrics Al[place]ina [address] [place] [address] [phone] 03/14/2019 Office Visit Cardiology Rey Woodall MD [address] [place] [address] [phone] 05/04/2019 Office Visit Sleep Disorders Celsa Tafoya CRNP 132 [place] [address] Scheduled Referrals Name Priority Associated Diagnoses Order [...] Additional history exists CKD PHOS USE SMARTSET 41749 12/29/2018 04/0 01/2018, 08/26/2009, 08/25/2009, Additional history exists DIABETES-HGBA1C EVERY 6 MONTHS 03/27/2019 09/27/2018, 05/01/2018, 12/29/2017, Additional history exists Yearly B-12 05/16/2019 05/16/2018 BREAST CANCER SCREENING DISCUSSION YEARLY AGES 40-75 06/23/2019 06/23/2018, 05/09/2015, 07/12/2014, Additional history exists CKD GFR USE SMARTSET 57327 06/25/201912/23, 12/18/2018, 12/14/2018, Additional history exists CKD HGB USE SMARTSET 88002 12/24/201912/23, 12/08/2018, 06/06/2018, Additional history exists DIABETES-FOOT [...] For more information, please contact: [place] [phone] Latest Code Status on File Code Status [...]
--- OUTSIDE RECORDS SUMMARY | 2023-06-01 05:53 | External Medical Summary | Summary of Care ---
Author Name Unknown Organization [place] [address] Care Team Providers Care Biochemistry Specialist Name Role Phone Kevin Whiteside Primary Care Provider Encounter Details Date Type Department Care Team Description 12/13/2018 Scan Encounter Unspecified Department <No scans attached> Allergies Active Allergy Reactions Severity Noted Date Comments Heparin 09/04/2009 Heparin Induced Thrombocytopenia Empagliflozin Other (Please comment) Medium 05/17/2018 3 yeast infections in 6 weeks after starting Morphine And Related 09/16/1997 Hallucinations Tetanus Toxoid Other (Please comment) 06/15/2011 Passed out documented as of this encounter (statuses as of 12/26/2018) Medications Medication Sig Dispensed Refills Start Date [...] Each 5 08/01/2018 Active ergocalciferol (VITAMIN D2,DRISDOL,) 17412 UNIT CapsuleIndications: Vitamin D deficiency Take 1 [...] per day. 15 mL 4 12/01/2018 Active documented as of this encounter (statuses as of 12/26/2018) Active Problems Problem Noted Date Impetigo 09/27/2018 [...] 10/14/2014 Overview: ICD-10 update of inactive term [place] filter in place 08/19/2014 History of pulmonary [...] as of this encounter (statuses as of 12/26/2018) Resolved Problems Problem Noted Date Resolved Date [...] as of this encounter (statuses as of 12/26/2018) Immunizations Name Dates Previously Given Next Due [...] Celsa Tafoya CRNP [address] [place] [address] [phone] 01/12/2019 Office Visit Cardiology Marjorie Powell PA-C [address] [place] [address] [phone] 01/17/2019 Pharmacy Pharmacy [facility] [place] [address] [place] [address] 01/24/2019 Office Visit Nephrology Gia White MD 21 [facility] [place] [phone] 02/26/2019 Office Visit Family Medicine [facility] DO [facility] [place] [address] [phone] 03/14/2019 Office Visit [facility]iology [facility] [place] [phone] 05/04/2019 Office Visit Sleep Disorders [facility]elsa [facility] CRNP [facility] [place] [address] [phone] Health Maintenance Due Date Last Done Comments DIABETES-EYE EXAM 02/24/2011 02/24/2010 (Do ne elsewhere), 12/18/2009, 02/18/2008 (Done elsewhere) PAP SMEAR-EVERY 3 YRS,AGES 21-65 05/11/2016 05/11/2013, 03/01/2008, 10/19/2006, Additional history exists CKD PHOS USE SMARTSET 86623 12/29/2018 04/0 01/2018, 08/26/2009, 08/25/2009, Additional history exists DIABETES-FOOT EXAM 12/29/2018 12/29/2017, 0 10/21/2016, 12/11/2015, Additional history exists DIABETES-HGBA1C EVERY 6 MONTHS 03/27/2019 09/27/2018, 05/01/2018, 12/29/2017, Additional history exists Yearly B-12 05/16/2019 05/16/2018 BREAST CANCER SCREENING DISCUSSION YEARLY AGES 40-75 06/23/2019 06/23/2018, 05/09/2015, 07/12/2014, Additional history exists CKD GFR USE SMARTSET 13845 06/25/201912/23, 12/18/2018, 12/08/2018, Additional history exists CKD HGB USE SMARTSET 57330 12/24/201912/23, 12/08/2018, 06/06/2018, Additional history exists PNEUMOCOCCAL [...] For more information, please contact: [place] [phone] Latest Code Status on File Code Status [...]
--- OUTSIDE RECORDS SUMMARY | 2023-06-01 05:53 | External Medical Summary | Summary of Care ---
Author Name Unknown Organization [place] [address] Care Team Providers Care Plate Fitter Name Role Phone Kevin Whiteside Primary Care Provider Reason for Visit * Reason Comments case management Encounter Details Date Type Department Care Team Description 01/02/2019 Telephone Internal Medicine [address] [address] Galen Small RN 132 [place] [address] case management Allergies Active Allergy [...] daily 180 Each 5 08/01/20 18 Active ergocalciferol (VITAMIN D2,DRISDOL,) 02952 UNIT CapsuleIndications :Vitamin D deficiency Take 1 Cap by mouth once a week. 13 Cap 1 08/02/20 18 Active insulin aspart (NOVOLOG FLEXPEN) 100 [...] day. 15 mL 4 12/02/19 19 Active spironolactone (ALDACTONE) 12.5 MG TABS Take by mouth daily. 0 Active DULoxetine (CYMBALTA) 60 MG CPEPIndications:Fi bromyalgia,Moderat e episode of recurrent major depressive disorder (HCC),Primary osteoarthritis of both knees Take 1 Cap by mouth daily. Do not cut, crush or chew 90 Cap 5 12/19/19 19 Active traMADol (ULTRAM) 50 MG Tablet Take 1 Tab by mouth every 6 hours as needed for Pain. 30 Tab 0 12/19/19 19 Active cefdinir (OMNICEF) 300 MG Capsule Take 300 mg by mouth 2 times a day. 0 12/29/19 19 019 Active metoprolol tartrate (LOPRESSOR) 25 MG TabletIndications: [...] Med was increased during hospitalization 0 Active furosemide (LASIX) 80 MG TabletIndications: Acute diastolic congestive heart failure (HCC) Take 1 Tab by mouth daily. Take an additional tablet as directed or needed for fluid retention 60 Tab 3 10/23/19 19 019 Discontinued documented as of this [...] Overview: ICD-10 update of inactive term [place] filter in place 08/19/2014 History of pulmonary [...] encounter Miscellaneous Notes * Addendum Note - Galen Small RN - 01/03/2019 8:48 AM EDT Addended by: GALEN SMALL on: 01/03/2019 08:48 AM Modules accepted: Orders * Telephone Encounter - Galen Small RN - 01/02/2019 12:04 PM EDT PMH: DM, HTN, SOA with CPAP, history of PE, zoraida filter in place, dyslipidemia-statin intol, GERD, Fibromyalgia, depression/anxiety New-acute diastolic HF and ELSIE sent from PCP office abnormal labs and shortness of breath. x-ray concerning for atypical pneumonia 06/06/18-[facility] admit Acute respiratory failure with [...] weight 343 on d/c 06/10/18 d/c from [facility] new on Lasix, potassium and Mg Stopped Metformin and HCTZ 12/08 [facility] admit acute decompensated diastolic HF Consulted Cardiology and nephrology 12/14/18 D/c to home Added Spirolactone Increased Lasix to 80 mg BID (4-6 hours apart) Weekly BMP x 4 weights and home BP cuff D/c weight 351.2 12/18-Dr Whiteside 01/12-cards 01/24-neph ROSA wk 1 Home visit with Mira SALDANA -pt lives in 1st floor appt with her 2 cats Pt has her own car and is able to drive Says she is feeling OK Having issues with [facility] scale and BP cuff Denies increased SOB -pt not SOB ambulating within her apartment.. Uses O2 at HS. Has been rescheduled for sleep study that pt missed due to hospitalization Denies increased swelling-minimal edema noted pedal/ankles Denies any N/V or decreased appetite Denies diff with bowels or bladder Ongoing neuropathy, back pain-PCP increased Gabapentin at last OV and pt uses Tramadol for severe pain Reports that she uses cane for ambulation outside [facility] assessment performed LES provided pt with written info on restriction of fluids-encouraged pt to adhere to approx 60-64 Oz/day LES provided pt with written info on salt restriction/foods to avoid. 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 Discussed not adding salt to food. -pt reports that she doesn't had salt when cooking and she reports she thought that using the himalyan salt that she uses less Encouraged pt to read labels and look for foods with 300 mg or less of sodium Assisted pt with [facility] scale and blood pressure cuff set-up Instructed to weigh selft daily and need to report 3 lbs or more weight gain in 24 hours or 5 lbs or more in a week. Also if more SOB and or more swelling, fatigue bloating or any other concerns. Will refer to JIHAN SALDANA to assist with finding low income housing Plan to contact pt again this week Galen Small RN, [facility] Upper Cutter Machine [phone] documented in this encounter Plan of Treatment Upcoming Encounters Date Type Specialty Care Team Description 01/12/2019 Office Visit Cardiology Marjorie Powell, EVIN 132 [facility] [place] [address] [phone] 01/17/2019 Pharmacy [facility] [place] [address] 01/24/2019 Office Visit Nephrology Gia White MD 21 [place], [place] [address] [phone] 02/23/2019 Office Visit Sleep Disorders Celsa Tafoya CRNP [facility] [place] [address] [phone] 02/26/2019 Office Visit Family Medicine Kevin Whiteside DO [address] [place] [address] [phone] 02/28/2019 Office Visit Gynecology Obstetrics Alvina Hi, [address] [id number] [phone] 03/14/2019 Office Visit Cardiology Rey Woodall MD 132 [place] [id number] [phone] 05/04/2019 Office Visit Sleep Disorders Celsa Tafoya CRNP 132 [place] [id number] [phone] Health Maintenance Due Date Last Done Comments DIABETES-EYE EXAM 02/24/2011 02/24/2010 (Do ne elsewhere), 12/18/2009, 02/18/2008 (Done elsewhere) PAP SMEAR-EVERY 3 YRS,AGES 21-65 05/11/2016 05/11/2013, 03/01/2008, 10/19/2006, Additional history exists CKD PHOS USE SMARTSET 17930 12/29/2018 04/0 01/2018, 08/26/2009, 08/25/2009, Additional history exists DIABETES-HGBA1C EVERY 6 MONTHS 03/27/2019 09/27/2018, 05/01/2018, 12/29/2017, Additional history exists Yearly B-12 05/16/2019 05/16/2018 BREAST CANCER SCREENING DISCUSSION YEARLY AGES 40-75 06/23/2019 06/23/2018, 05/09/2015, 07/12/2014, Additional history exists CKD GFR USE SMARTSET 53049 06/25/201912/23, 12/18/2018, 12/14/2018, Additional history exists CKD HGB USE SMARTSET 97951 12/24/201912/23, 12/08/2018, 06/06/2018, Additional history exists DIABETES-FOOT [...] For more information, please contact: [place] [phone] Latest Code Status on File Code Status [...]
--- OUTSIDE RECORDS SUMMARY | 2023-06-01 05:53 | External Medical Summary | Summary of Care ---
Author Name Unknown Organization [place] [address] Care Team Providers Care Tape Recording Machine Operator Name Role Phone Kevin Whiteside Primary Care Provider Reason for Visit * Reason Comments eRx-Medication Refill Encounter Details Date Type Department Care Team Description 01/03/2019 Refill Nephrology 2nd Floor, [place] 21 [place] [address] Kendy White MD 21 [place] [address] Vitamin D deficiency Allergies Active [...] day. 270 Cap 5 01/02/20 19 Active Vitamin D, Ergocalciferol, 17010 units CapsuleIndications :Vitamin D deficiency Take one capsule by mouth once a week 13 Cap 0 01/04/20 19 Active furosemide (LASIX) 80 MG Tablet Take 80 mg by mouth 2 times a day. Med was increased during hospitalization 0 Active ergocalciferol (VITAMIN D2,DRISDOL,) 09955 UNIT CapsuleIndications :Vitamin D deficiency Take 1 Cap by mouth once a week. 13 Cap 1 08/02/20 18 019 Discontinued documented as of this [...] Telephone Encounter - Kendy White MD - 01/03/2019 12:35 PM EDT Signed Prescriptions: Disp Refills Vitamin D, Ergocalciferol, 91112 units Cap*13 Cap 0 Sig: Take one capsule by mouth once a week Authorizing Provider: KENDY WHITE * Telephone Encounter - Teri Cullen RN - 01/03/2019 11:01 AM EDT Pending Prescriptions: Disp Refills Vitamin D, Ergocalciferol, 75805 units Ca*13 Cap 0 Sig: Take one capsule by mouth once a week * Telephone Encounter - Teri Cullen RN - 01/03/2019 10:[address] White, do you want to continue his Vit D? Pending Prescriptions: Disp Refills Vitamin D, Ergocalciferol, 03044 units Ca*13 Cap 0 Sig: Take one capsule by mouth once a week Last Office Visit: 07/13 Next Office Visit: 02/11 If no future appointments scheduled, and last appointment is greater than a year ago, please schedule patient for a follow-up appointment Last date the medication was ordered: Patient Phone Numbers Labs: Lab Results Component Value Date/Time CREAT 2.3 (A) 12/23/2018 CREAT 2.52 (A) 12/23/2018 CREAT 1.5 (H) 12/18/2018 01:36 PM POTASSIUM 4.7 12/18/2018 01:36 PM TSH 3.14 05/01/2018 09:12 AM LDLCALC 111 08/01/2018 08:29 AM LDLDIRECT 109 07/14/2017 12:35 PM ALT 23 10/26/2018 09:39 AM HGBA1C 9.5 (H) 09/27/2018 01:48 PM documented in this encounter Plan of Treatment Upcoming Encounters Date Type Specialty Care Team Description 01/12/2019 Office Visit Cardiology Marjorie Powell PA-C 132 [facility] [place] [address] [phone] 01/17/2019 Pharmacy Pharmacy [facility] [place] [address] [place] [address] 01/24/2019 Office Visit Nephrology [facility] MD 21 [facility] [phone] 02/23/2019 Office Visit Sleep Disorders Celsa Tafoya CRNP 132 [facility] [place] [id number] 02/26/2019 Office Visit Family Medicine Kevin Whiteside DO [address] [place] [address] [phone] 02/28/2019 Office Visit Gynecology Obstetrics Alvina Hi, [facility] 400 [facility] [place] [address] 03/14/2019 Office Visit Cardiology Rey Woodall MD 132 [facility] [place] [address] 05/04/2019 Office Visit Sleep Disorders [facility]elsa [facility]oya CRNP [facility] [place] [address] [phone] Health Maintenance Due Date Last Done Comments DIABETES-EYE EXAM 02/24/2011 02/24/2010 (Do ne elsewhere), 12/18/2009, 02/18/2008 (Done elsewhere) PAP SMEAR-EVERY 3 YRS,AGES 21-65 05/11/2016 05/11/2013, 03/01/2008, 10/19/2006, Additional history exists CKD PHOS USE SMARTSET 74965 12/29/201801/2018, 08/26/2009, 08/25/2009, Additional history exists DIABETES-HGBA1C EVERY 6 MONTHS 03/27/2019 09/27/2018, 05/01/2018, 12/29/2017, Additional history exists Yearly B-12 05/16/2019 05/16/2018 BREAST CANCER SCREENING DISCUSSION YEARLY AGES 40-75 06/23/2019 06/23/2018, 05/09/2015, 07/12/2014, Additional history exists CKD GFR USE SMARTSET 66406 06/25/201912/23, 12/18/2018, 12/14/2018, Additional history exists CKD HGB USE SMARTSET 15418 12/24/201912/23, 12/08/2018, 06/06/2018, Additional history exists DIABETES-FOOT [...] For more information, please contact: [place] [phone] Latest Code Status on File Code Status [...]
--- OUTSIDE RECORDS SUMMARY | 2023-06-01 05:53 | External Medical Summary | Summary of Care ---
Author Name Unknown Organization [place] [address] Care Team Providers Care Bottle Tester Name Role Phone Kevin Whiteside Primary Care Provider Encounter Details Date Type Department Care Team Description 12/09/2018 Scan Encounter Unspecified Department <No scans attached> [...] Each 5 08/01/2018 Active ergocalciferol (VITAMIN D2,DRISDOL,) 17683 UNIT CapsuleIndications: Vitamin D deficiency Take 1 [...] 10/14/2014 Overview: ICD-10 update of inactive term [place] filter in place 08/19/2014 History of pulmonary [...] Encounters Date Type Specialty Care Team Description 01/02/2019 Home Visit Family Medicine Mira Duong, [facility] [address] [facility] [place] [address] [phone] Arrived 01/12/2019 Office Visit Cardiology Marjorie Powell, PAMyraC [address] [facility] [place] [address] [phone] 01/17/2019 Pharmacy Pharmacy [facility] [address] [place] [address] 01/24/2019 Office Visit Nephrology Gia White MD [address] [facility] [place] [id number] 02/23/2019 Office Visit Sleep Disorders [facility] [place] [address] 02/26/2019 Office Visit Family Medicine Kevin Whiteside DO [address] [place] [address] [phone] 02/28/2019 [facility] [address] [place] [address] [phone] 03/14/2019 Office Visit Cardiology Rey Woodall MD [address] [place] [address] 05/04/2019 Office Visit Sleep Disorders Celsa Tafoya CRNP [address] [facility] [place] [address] Health Maintenance Due Date Last Done Comments DIABETES-EYE EXAM 02/24/2011 02/24/2010 (Do ne elsewhere), 12/18/2009, 02/18/2008 (Done elsewhere) PAP SMEAR-EVERY 3 YRS,AGES 21-65 05/11/2016 05/11/2013, 03/01/2008, 10/19/2006, Additional history exists CKD PHOS USE SMARTSET 02608 12/29/2018 04/0 01/2018, 08/26/2009, 08/25/2009, Additional history exists DIABETES-HGBA1C EVERY 6 MONTHS 03/27/2019 09/27/2018, 05/01/2018, 12/29/2017, Additional history exists Yearly B-12 05/16/2019 05/16/2018 BREAST CANCER SCREENING DISCUSSION YEARLY AGES 40-75 06/23/2019 06/23/2018, 05/09/2015, 07/12/2014, Additional history exists CKD GFR USE SMARTSET 47778 06/25/201912/23, 12/18/2018, 12/14/2018, Additional history exists CKD HGB USE SMARTSET 95894 12/24/201912/23, 12/08/2018, 06/06/2018, Additional history exists DIABETES-FOOT [...] For more information, please contact: [place] [phone] Latest Code Status on File Code Status [...]
--- OUTSIDE RECORDS SUMMARY | 2023-06-01 05:53 | External Medical Summary | Summary of Care ---
Author Name Unknown Organization [place] [address] Care Team Providers Care Programmer Developer Name Role Phone Kevin Whiteside DO Primary Care Provider Reason for Referral * Evaluate & Treat - Unlimited Visits (Within 10 days (routine)) Status Reason Specialty Diagnoses / Procedures Referred By Contact Referred To Contact Authorized Specialty Services Required Obstetrics/Gyne cology Diagnoses Pap smear for cervical cancer screening Kevin Whiteside DO [address] [facility] [place] [address] Reason for Visit * Reason Comments Hospital Follow-Up UTI, dehydration, st arting to feel better Hospital Follow-Up Encounter Details Date Type Department Care Team Description 01/01/2019 Office Visit [facility] [address] [place] [address] Kevin Whiteside DO [facility] [place] [address] [phone] DM type 2 nursing care encounter (HCC)*; Hospital discharge follow-up; Body mass index (BMI) of 50.0 to 59.9 in adult ([facility]); Chronic diastolic congestive heart failure (HCC); Type 2 diabetes mellitus with hemoglobin A1c goal of 7.0%-8.0% ([facility]); Uncontrolled type 2 diabetes mellitus with stage 3 chronic kidney disease, with long-term current use of insulin (HCC); Pap smear for cervical cancer screening; HTN, goal below 130/80; Acute diastolic congestive heart failure (HCC); Hypoxemia; ELISSA (obstructive sleep apnea); HTN, goal below 140/80 Allergies Active Allergy Reactions Severity Noted Date Comments Heparin 09/04/2009 Heparin Induced Thrombocytopenia Empagliflozin Other (Please comment) Medium 05/17/2018 3 yeast infections in 6 weeks after starting Morphine And Related 09/16/1997 Hallucinations Tetanus Toxoid Other (Please comment) 06/15/2011 Passed out documented as of this encounter (statuses as of 01/01/2019) Medications Medication Sig Dispensed Refills Start Date [...] 5 08/01/20 18 Active ergocalciferol (VITAMIN D2,DRISDOL,) 65211 UNIT CapsuleIndications :Vitamin D deficiency Take 1 [...] DAILY 180 Tab 3 09/11/20 18 Active furosemide (LASIX) 80 MG TabletIndications: Acute diastolic congestive heart failure (HCC) Take 1 Tab by mouth daily. Take an additional tablet as directed or needed for fluid retention 60 Tab 3 10/23/19 19 Active lisinopril (PRINIVIL) 2.5 MG TabletIndications: [...] in adult ([facility]),Hypoxemia,OS A (obstructive sleep apnea),HTN, goal below 140/80 Take 1 Tab by mouth 2 times a day. 180 Tab 3 01/02/20 19 Active gabapentin (NEURONTIN) 300 MG CapsuleIndications :Type 2 diabetes mellitus with hemoglobin A1c goal of 7.0%-8.0% ([facility]) Take 1 Cap by mouth 3 times a day. 270 Cap 5 01/02/20 19 Active metoprolol tartrate (LOPRESSOR) 25 MG TabletIndications: HTN, goal below 130/80,Acute diastolic congestive heart failure (HCC),Body mass index (BMI) of 50.0 to 59.9 in adult ([facility]),Hypoxemia,OS A (obstructive sleep apnea),HTN, goal below 140/80 Take 2 Tabs by mouth 2 times a day. 360 Tab 3 08/01/20 18 019 Discontinued gabapentin (NEURONTIN) 100 MG Capsule Take 100 mg by mouth 3 times a day. 0 019 Discontinued documented as of this encounter (statuses as of 01/01/2019) Active Problems Problem Noted Date Impetigo 09/27/2018 [...] as of this encounter (statuses as of 01/01/2019) Resolved Problems Problem Noted Date Resolved Date [...] as of this encounter (statuses as of 01/01/2019) Immunizations Name Dates Previously Given Next Due [...] Vital Sign Reading Time Taken Blood Pressure 100/62 01/01/2019 11:03 AM EDT Pulse 90 01/01/2019 11:03 AM EDT Temperature 36.4 C (97.5 F) 01/01/2019 1 1:03 AM EDT Respiratory Rate 24 01/01/2019 11:0 3 AM EDT Oxygen Saturation 94% 01/01/2019 11: 03 AM EDT Inhaled Oxygen Concentration - - Weight 155.6 kg (343 lb) 01/01/2019 11: 03 AM EDT Height - - Body Mass Index 58.49 01/01/2019 11:03 AM EDT documented in this encounter Patient Instructions * Patient Instructions* Izabela Crump LPN - 01/01/2019 11:09 AM EDT Diabetes: Keeping Feet Healthy Inspect [...] calluses yourself. Talk to your doctor or sports physical therapist (a doctor who specializes in foot care) [...] the area doesnt appear to be healing. [phone] [employer], [address] [place] [address], [place] [address]. All rights reserved. This information is not intended as a substitute for professional medical care. Always follow your healthcare professional's instructions. documented in this encounter Progress Notes * Kevin Whiteside, - 01/01/2019 11:12 AM EDT Nursing Notes: Izabela Crump LPN 01/01/19 1109 Signed The patient has been properly identified by confirmation of name and date of . Chief Complaint Patient presents with Hospital Follow-Up UTI, dehydration, starting to feel better ASSESSMENT/PLAN: 1. Hospital discharge follow-up Patient was admitted for urosepsis Still on ABX but doing better now, improving day by day Also had low BP throughout her hospital stay with presyncope Still having that at home, feels unstable at times due to the low BP and feels like she could pass out when she stands up - DISCH MED RECON CUR MED LIS 2. Body mass index (BMI) of 50.0 to 59.9 in adult ([facility]) Provided education 4. Type 2 diabetes mellitus with hemoglobin A1c goal of 7.0%-8.0% ([facility]) - gabapentin (NEURONTIN) 300 MG Capsule; Take 1 Cap by mouth 3 times a day. Dispense: 270 Cap; Refill: 5 5. Uncontrolled type 2 diabetes mellitus with stage 3 chronic kidney disease, with long-term current use of insulin ([facility]) Following up with [facility] pharmacy on the 17 of January, will discuss further with them regarding ongoing management 6. Pap smear for cervical cancer screening Due for screening pap smear Will schedule with [facility], f/u as needed - [facility] REFERRAL OP 7. DM type 2 nursing care encounter (HCC) - DIABETES FOOT EXAM 9. Acute diastolic congestive heart failure (HCC) Ongoing care for her CHF, will be following up with cardiology. - metoprolol tartrate (LOPRESSOR) 25 MG Tablet; Take 1 Tab by mouth 2 times a day. Dispense: 180 Tab; Refill: 3 10. Hypoxemia Improved since discharge, was 85% at hospital on admission 11. ELISSA (obstructive sleep apnea) Continue CPAP therapy 12. HTN, goal below 140/80 Decreasing betablocker due to symptomatic hypotension Fall risk high with her lack of strength and imbalance in addition to her morbid obesity - metoprolol tartrate (LOPRESSOR) 25 MG Tablet; Take 1 Tab by mouth 2 times a day. Dispense: 180 Tab; Refill: 3 HPI: Stephanie Camp is a 63 year old female who: Patient was admitted for urosepsis Still on ABX but doing better now, improving day by day Also had low BP throughout her hospital stay with presyncope Still having that at home, feels unstable at times due to the low BP and feels like she could pass out when she stands up ROS: CONSTITUTIONAL: no weight loss, no fevers, [...] numbness PSYCH: no SI/HI PHYSICAL EXAMINATION: BP 100/62 | Pulse 90 | Temp (Src) 97.5 (Tympanic) | Resp 24 | Wt 343 lbs (155.584kg) | BMI 58.49 kg/m | BSA 2.66 m | SaO2 94% | LMP 03/11/2003 GENERAL: alert, healthy, no [...] non-tender, without nodularity HEART: regular rate & rhythm LUNGS: clear to auscultation bilaterally. No wheezing/rales/rhonchi ABDOMEN: abdomen soft, non-tender, normal bowel sounds and no masses or organomegaly EXTREMITIES: no joint deformities, effusion, or inflammation, +1 edema, no clubbing, no cyanosis, Full ROM, [...] insulin ([facility]) E11.22, E11.65, N18.3, Z79.4 Body mass index (BMI) of 50.0 to 59.9 in adult ([facility]) Z68.43 Controlled substance agreement signed Z79.899 Chronic diastolic congestive heart failure ([facility]) I50.32 Thoracic back pain M54.6 Mild episode of recurrent major depressive disorder ([facility]) F33.0 Impetigo L01.00 Lumbar radiculopathy M54.16 Past Medical History: Diagnosis Date ELSIE (acute kidney injury) ([facility]) 06/12/2018 Allergic rhinitis due to other allergen Backache Diverticulosis of colon 01/28/06 DM type 2, not at goal ([facility]) ELLIE (generalized anxiety disorder) 09/13/2009 Goiter [place] filter in place 08/19/2014 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 COLONOSCOPY, GI REFERRAL OP 01/28/06 diverticulosis--repeat 10 years INCISION OF WIN[place], PLANNED 06/03/2011 TRACHEOSTOMY PLANNED performed by DANNY HOLDER at [facility] KNEE ARTHROSCOPY/DEBRIDEMENT 07/[address] PERMANENT GASTROSTOMY TUBE 09/06/09 GASTROSTOMY WITH CONSTUCTION GASTRIC TUBE performed by AMADOU NUNEZ at [facility] REMOVAL OF THYROID GLAND 06/15/2011 THYROIDECTOMY INCLUDING SUBSTERNAL THYROID CERVICAL APPROACH performed by DANNY HLODER at [facility] REMOVE GALLBLADDER 09/06/09 CHOLECYSTECTOMY performed by AMADOU NUNEZ at [facility] REPAIR RECURRENT INCISIONAL HERNIA 1998 REVISION OF COLOSTOMY, SIMPLE 1998 SUTURE, LARGE INTESTINE W/COLOSTOMY 1996 perforation R colon with colostomy VENA CAVA FILTER/LIGATION/CLIP 08/19/09 Frank filter placement through the right femoral 08/19/[address] [facility] Current Outpatient Medications Medication Sig Dispense Refill gabapentin (NEURONTIN) 300 MG Capsule Take 1 Cap by mouth 3 times a day. 270 Cap 5 metoprolol tartrate (LOPRESSOR) 25 MG Tablet Take 1 Tab by mouth 2 times a day. 180 Tab 3 cefdinir (OMNICEF) 300 MG Capsule Take 300 mg by mouth 2 times a day. DULoxetine (CYMBALTA) 60 MG CPEP Take 1 Cap by mouth daily. Do not cut, crush or chew 90 Cap 5 traMADol (ULTRAM) 50 MG Tablet Take 1 Tab by mouth every 6 hours as needed for Pain. 30 Tab 0 spironolactone (ALDACTONE) 12.5 MG TABS Take by mouth daily. insulin aspart (NOVOLOG FLEXPEN) 100 UNIT/ML SOPN [...] as directed or needed for fluid retention (Patient taking differently: Take 80 mg by mouth 2 times a day. Takean additional tablet as directed or needed for fluid retention) 60 Tab 3 clonazePAM (KLONOPIN) 0.5 MG Tablet TAKE ONE TABLET BY MOUTH TWICE DAILY 180 Tab 3 ACCU-CHEK SOFTCLIX LANCETS MISC Test sugar 3-4 times a day. Ok to substitute Fastclix lancets, if needed. 400 Box Dosing Unit 3 Blood Glucose Monitoring Suppl (ACCU-CHEK HARRIS PLUS) w/Device KIT Use to test sugar 3-4 times daily. 1 Kit 0 insulin aspart (NOVOLOG FLEXPEN) 100 UNIT/ML SOPN Inject 18 units breakfast, 10 units with lunch and 20 units with dinner plus sliding scale up to 100 units per day 10 Pre-filled Pen Syringe Dosing Unit 5 ergocalciferol (VITAMIN D2,DRISDOL,) 60871 UNIT Capsule Take 1 Cap by mouth once a week. 13 Cap1 cyclobenzaprine (FLEXERIL) 10 MG Tablet TAKE ONE TABLET BY MOUTH AT BEDTIME NEEDED FOR MUSCLE SPASM 90 Tab 2 Insulin Pen Needle (BD PEN NEEDLE [...] PO CPDR one tablet daily Glucose Blood (ACCU-CHEK HARRIS PLUS) STRP Test sugar 3-4 times a day. (Patient not taking: Reportedon 01/01/2019) 400 Strip 3 Glucose Blood (ONETOUCH ULTRA BLUE) STRP Check sugars 3-4 times daily (Patient not taking: Reportedon 01/01/2019) 360 Strip 5 Review of patient's allergies indicates: Allergen Reactions Jardiance [Empagliflozin] Other (Please comment) 3 yeast infections in 6 weeks after starting Heparin Heparin Induced Thrombocytopenia Morphine And Related Hallucinations Tetanus Toxoid Other (Please comment) Passed out Kevin Whiteside DO [facility] [address] [facility] [address] (This note was completed using the dictation program Fluency Direct. As such, there may be misspellings, word substitutions, or other variations that should not change the essence of the clinical content of this encounter note.If there is need for further clarification, please direct questions to the provider listed above.) * Izabela Crump LPN - 01/01/2019 11:08 AM EDT DM Foot Exam completed today. Provider aware. Izabela Crump LPN Socks and Shoes Removed for Annual Diabetic Foot Screening RIGHT FOOT: No Reddened, Cracking, Or Open Areas Noted. RIGHT Dorsalis Pedis Pulse: Unable to locate RIGHT Posterior Tibial Pulse: Unable to locate RIGHT Monofilament:Patient reports feeling monofilament pressure on plantar surface of foot LEFT FOOT: No Reddened, Cracking or Open Areas Noted. LEFT Dorsalis Pedis Pulse: Unable to locate LEFT Posterior Tibial Pulse: Unable to locate LEFT Monofilament: Patient reports feeling monofilament pressure on plantar surface of foot documented in this encounter Nursing Notes * Izabela Crump LPN - 01/01/2019 11:03 AM EDT The patient has been properly identified by confirmation of name and date of . Chief Complaint Patient presents with Hospital Follow-Up UTI, dehydration, starting to feel better documented in this encounter Plan of Treatment Upcoming Encounters Date Type Specialty Care Team Description 01/12/2019 Office Visit Cardiology Marjorie Powell PA-C [address] [place] [address] [phone] 01/17/2019 Pharmacy Pharmacy [facility] [place] [address] [place] [address] 01/24/2019 Office Visit Nephrology Gia White MD [address] [place] [address] [phone] 02/23/2019 Office Visit Sleep Disorders Celsa Tafoya CRNP [address] [place] [address] [phone] 02/26/2019 Office Visit Family Medicine Kevin Whiteside, [address] [place] [address] [phone] 02/28/2019 Office Visit Gynecology Obstetrics Alvina Hi, CNM [address] [facility] [place] [address] [phone] 03/14/2019 Office Visit Cardiology Rey Woodall MD [address] [place] [address] 05/04/2019 Office Visit Sleep Disorders Celsa Tafoya CRNP [address] [place] [address] Scheduled Referrals Name Priority Associated Diagnoses Order S chedule [facility] REFERRAL OP Within 10 days (routine) Pap smear for cervical cancer screening Ordered: 01/01/2019 Health Maintenance Due Date Last Done Comments DIABETES-EYE EXAM 02/24/2011 02/24/2010 (Do ne elsewhere), 12/18/2009, 02/18/2008 (Done elsewhere) PAP SMEAR-EVERY 3 YRS,AGES 21-65 05/11/2016 05/11/2013, 03/01/2008, 10/19/2006, Additional history exists CKD PHOS USE SMARTSET 09123 12/29/2018 04/0 01/2018, 08/26/2009, 08/25/2009, Additional history exists DIABETES-FOOT EXAM 12/29/2018 12/29/2017, 0 10/21/2016, 12/11/2015, Additional history exists DIABETES-HGBA1C EVERY 6 MONTHS 03/27/2019 09/27/2018, 05/01/2018, 12/29/2017, Additional history exists Yearly B-12 05/16/2019 05/16/2018 BREAST CANCER SCREENING DISCUSSION YEARLY AGES 40-75 06/23/2019 06/23/2018, 05/09/2015, 07/12/2014, Additional history exists CKD GFR USE SMARTSET 29686 06/25/201912/23, 12/18/2018, 12/14/2018, Additional history exists CKD HGB USE SMARTSET 70504 12/24/201912/23, 12/08/2018, 06/06/2018, Additional history exists PNEUMOCOCCAL [...] mention of complication, not stated as uncontrolled Hospital discharge follow-up Other follow-up examination Body mass index (BMI) of 50.0 to 59.9 in adult (HCC) Chronic diastolic congestive heart failure (HCC) Chronic diastolic heart failure Type 2 diabetes mellitus with hemoglobin A1c goal of 7.0%-8.0% (HCC) Uncontrolled type 2 diabetes mellitus with stage 3 chronic kidney disease, with long-term current use of insulin (HCC) Pap smear for cervical cancer screening Screening for malignant neoplasm of the cervix HTN, goal below 130/80 Unspecified essential hypertension Acute diastolic congestive heart failure (HCC) Acute diastolic heart failure Hypoxemia ELISSA (obstructive sleep apnea) Obstructive sleep apnea (adult) (pediatric) HTN, goal below 140/80 Unspecified essential hypertension documented in this encounter Advance Directives Patient has advance care planning documents, and code status on file. For more information, please contact: [place] [phone] Latest Code Status on File Code Status [...]
--- OUTSIDE RECORDS SUMMARY | 2023-06-01 05:53 | External Medical Summary | Summary of Care ---
Author Name Unknown Organization [place] [address] Care Team Providers Care Directional Survey Drafter Name Role Phone Kevin Whiteside Primary Care Provider Reason for Visit * Reason Comments case management Encounter Details Date Type Department Care Team Description 01/02/2019 Telephone Internal Medicine [address] [address] Galen Small RN 132 [place] [address] case management Allergies Active [...] 5 08/01/20 18 Active ergocalciferol (VITAMIN D2,DRISDOL,) 48814 UNIT CapsuleIndications :Vitamin D deficiency Take 1 [...] 10/14/2014 Overview: ICD-10 update of inactive term [place] filter in place 08/19/2014 History of pulmonary [...] breath. x-ray concerning for atypical pneumonia 06/06/18-[facility] admit Acute respiratory failure with hypoxia [...] 343 on d/c 06/10/18 d/c from [facility] new on Lasix, potassium and Mg Stopped Metformin and HCTZ 12/08 [facility] admit acute decompensated diastolic HF Consulted [...] that she uses cane for ambulation outside [facility] assessment performed LES provided pt with written info on restriction of fluids-encouraged pt to adhere to approx 60-64 Oz/day LES provided pt with written info on salt restriction/foods to avoid. Pt [facility] Discussed not adding salt to food. -pt [...] pt again this week Galen Small RN, [facility] Sewer Pipe Cleaner [phone] documented in this encounter Plan of Treatment Upcoming Encounters Date Type Specialty Care Team Description 01/12/2019 Office Visit Cardiology Marjorie Powell, EVIN [address] [facility] [place] [address] [phone] 01/17/2019 [facility] [place] [address] 01/24/2019 Office Visit Nephrology Gia White MD 21 [place], [place] [address] [phone] 02/23/2019 Office Visit Sleep Disorders [facility]elsa [facility]NP [facility] [place] [address] [phone] 02/26/2019 Office Visit Family Medicine Kevin Whiteside DO [address] [place] [address] [phone] 02/28/2019 Office Visit Gynecology Obstetrics Alvina Hi, [address] [id number] [phone] 03/14/2019 Office Visit Cardiology Rey Woodall MD [address] [place] [id number] [phone] 05/04/2019 Office Visit Sleep Disorders Celsa Tafoya CRNP [address] [place] [id number] [phone] Health Maintenance Due Date Last Done Comments DIABETES-EYE EXAM 02/24/2011 02/24/2010 (Do ne elsewhere), 12/18/2009, 02/18/2008 (Done elsewhere) PAP SMEAR-EVERY 3 YRS,AGES 21-65 05/11/2016 05/11/2013, 03/01/2008, 10/19/2006, Additional history exists CKD PHOS USE SMARTSET 42206 12/29/2018 04/0 01/2018, 08/26/2009, 08/25/2009, Additional history exists DIABETES-HGBA1C EVERY 6 MONTHS 03/27/2019 09/27/2018, 05/01/2018, 12/29/2017, Additional history exists Yearly B-12 05/16/2019 05/16/2018 BREAST CANCER SCREENING DISCUSSION YEARLY AGES 40-75 06/23/2019 06/23/2018, 05/09/2015, 07/12/2014, Additional history exists CKD GFR USE SMARTSET 08327 06/25/201912/23, 12/18/2018, 12/14/2018, Additional history exists CKD HGB USE SMARTSET 67836 12/24/201912/23, 12/08/2018, 06/06/2018, Additional history exists DIABETES-FOOT [...] on file. For more information, please contact: [place] [phone] Latest Code Status on File Code Status [...]
--- OUTSIDE RECORDS SUMMARY | 2023-06-01 05:53 | External Medical Summary | Summary of Care ---
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 0 12/28/2018 01/09/20 19 Active documented as of this encounter [...] 10/14/2014 Overview: ICD-10 update of inactive term [place] filter in place 08/19/2014 History of pulmonary [...] Progress Notes * Frances Nicholson RN - 12/28/2018 3:33 PM EDT PMH: DM, HTN, SOA with CPAP, history of PE, zoraida filter in place, dyslipidemia-statin intol, GERD, Fibromyalgia, depression/anxiety New-acute diastolic HF and ELSIE sent from PCP office abnormal labs and shortness of breath. x-ray concerning for atypical pneumonia 06/06/18-[facility] admit Acute respiratory failure with hypoxia and [...] 343 on d/c 06/10/18 d/c from [facility] new on Lasix, potassium and Mg Stopped Metformin and HCTZ 12/08 [facility] admit acute decompensated diastolic HF Consulted Cardiology and nephrology 12/14/18 D/c to home Added Spirolactone Increased Lasix to 80 mg BID (4-6 hours apart) Weekly BMP x 4 weights and home BP cuff D/c weight 351.2 12/18-Dr Whiteside 01/12-cards 01/24-neph 12/23 [facility] admit-pt presented to ER with Nausea, abd pain, intermittent fever (afebrile in EE), headaches, diffuse body aches. Creat elevated 2.52 on admit poss UTI-Rocephin ID consult for blood cultures +, one for e.coli, coag neg staph and urine culture + for klebselli current blood cultures neg 12/27-d/c to home 10 days of Omnicef for UTI 2nd set of blood cultures neg d/c weight 157.8 Kg (D/C weight last admit was 159.3) 01/01-Dr Whiteside 01/11-sleep med-but had to alcel sleep study due to hosp 01/12-cards D/C weight 347.7 Case Management Assessment/ROSA 12/27/18 D/C from [facility] Is this call for a hospital, custodial or rehab facility discharge to home? Yes 12/27 D/C from [facility] S: Reports:says she still feels pretty achy and is going to talk to Dr Whiteside about increasing her Gabapentin back up to 300 mg TID. Reports that they found she had UTI and that she had something in her blood, but felt it was a contaminant. Says she will slate picker the antibiotic today and is to take it twice a day for 12 days. Weight gain: pt did not weight self today-has received [facility] scale, but has not yet set it up Weight upon d/c from [facility] was 347.7 per hosp records Increased edema: denies Chest pain denies Increased shortness of breath: denies cough denies wheezing denies dyspnea with daily activities oxygen Has home O2 that she uses with C-PAP HS conserving device (C-PAP / BiPAP) Chills / Sweats / Fever: denies chills/sweats and denies fever Fall: denies any falls since last Care Management encounter Appetite: denies nausea, vomiting, burning, decreased appetite Bowel: denies problems Bladder: denies problems Medications: new on Omicef BID x 12 days and takes all medications as prescribed. Chronic Pain: c/o increased neuropathy and back pain-Gabapentin had been decreased last hospitalization O: Phone visit for ROSA 12/27 D/C form [facility]. Medications: meds reconciled A: Patient Centered Prioritized Goals: Pt will weigh self daily and ck BP daily thru [facility]. Pt will verbalize s/s of HF exacerbation needingreported. UTI will resolve. Pt will keep appts as scheduled. Development of self - management action [...] to communicate, understand instructions, process information. P: Hobber Interventions: informed of upcoming appts and that she missed her sleep study and will need to reschedule study along with appt with sleep med. Instructed to use [facility] scale to weigh self. Instructed to obtain antibiotic and take as directed until finished and report any s/s of UTI discussed UTI prevention Reviewed HF symptom monitoring: -Weigh self daily in am, post-void and record -Do not add salt to food, avoid foods high in sodium -Limit fluids to 2 liters per day Instructed in UTI Prevention: -drink plenty of fluids-limit to 2 lit (60-62 oz) due to HF -wear cotton panties -wipe from front to back -avoid delayed bladder emptying Self Management Action Plan established at previous visit Reinforced safety education / fall prevention -Report the following: ->3 lb weight gain in one day or 5 lbs in a week to PCP -increased edema in feet, abdomen or hands -increased SOB and cough, especially if at night -increased fatigue or vertigo: Symptoms of UTI needing reported: -burning with urination -increased urination -cloudy urine -dark urine -foul smelling urine -fever -weakness/change in mental status Instructed in safety/fall prevention Will request LES for home visit Will request [facility] to assist with relocating-moving to low income housing when lease is up in February Pt currently has [employer] Family as health insurance so issues with losing health care have resolved PCP Notified of enrollment in CM/HM program: No SNP Member? No Re-evaluation of plan of care and progress towards goals achievement:aware of appts. Aware of wt gain and s/s of UTI needing reproted. Agreeable to LSE and [facility] LES referrals Plan to call patient next week to reassess and update plan of care, instructed to call Case Manageror Primary Care Provider with change in symptoms or as needed before next follow-up, verbalizes understanding and agrees with plan. Frances Nicholson RN Outpatient Hobber documented in this encounter Plan of Treatment Upcoming Encounters Date Type Specialty Care Team Description 01/01/2019 Office Visit Family Medicine Kevin Whiteside DO [address] [place] [address] [phone] 01/12/2019 Office Visit Cardiology Marjorie Powell PA-C [address] [address] [phone] 01/17/2019 Pharmacy Pharmacy [facility] [address] [address] 01/24/2019 Office Visit Nephrology Gia White MD [address] [facility] [place] [address] [phone] 02/23/2019 Office Visit Sleep Disorders Celsa Tafoya CRNP [address] [address] [phone] 02/26/2019 Office Visit Family Medicine Kevin Whiteside DO [address] [address] [phone] 03/14/2019 Office Visit Cardiology Rey Woodall MD [address] [address] [phone] 05/04/2019 Office Visit Sleep Disorders Celsa Tafoya CRNP [address] [address] [phone] Health Maintenance Due Date Last Done Comments DIABETES-EYE EXAM 02/24/2011 02/24/2010 (Do ne elsewhere), 12/18/2009, 02/18/2008 (Done elsewhere) PAP SMEAR-EVERY 3 YRS,AGES 21-65 05/11/2016 05/11/2013, 03/01/2008, 10/19/2006, Additional history exists CKD PHOS USE SMARTSET 46636 12/29/2018 04/0 01/2018, 08/26/2009, 08/25/2009, Additional history exists DIABETES-FOOT EXAM 12/29/2018 12/29/2017, 0 10/21/2016, 12/11/2015, Additional history exists DIABETES-HGBA1C EVERY 6 MONTHS 03/27/2019 09/27/2018, 05/01/2018, 12/29/2017, Additional history exists Yearly B-12 05/16/2019 05/16/2018 BREAST CANCER SCREENING DISCUSSION YEARLY AGES 40-75 06/23/2019 06/23/2018, 05/09/2015, 07/12/2014, Additional history exists CKD GFR USE SMARTSET 68324 06/25/201912/23, 12/18/2018, 12/14/2018, Additional history exists CKD HGB USE SMARTSET 81496 12/24/201912/23, 12/08/2018, 06/06/2018, Additional history exists PNEUMOCOCCAL [...] unspecified documented in this encounter Advance Directives Patient has advance care planning documents, and code status on file. For more information, please contact: [place] [phone] Latest Code Status on File Code Status [...]
--- OUTSIDE RECORDS SUMMARY | 2023-06-01 05:53 | External Medical Summary | Summary of Care ---
Author Name Unknown Organization [place] [address] Care Team Providers Care Facsimile Operator Name Role Phone Kevin Whiteside Primary Care Provider Encounter Details Date Type Department Care Team Description 12/27/2018 Scan Encounter Unspecified Department <No scans attached> [...] Each 5 08/01/2018 Active ergocalciferol (VITAMIN D2,DRISDOL,) 98531 UNIT CapsuleIndications: Vitamin D deficiency Take 1 [...] Medicine Kevin Whiteside DO [address] [address] [phone] 01/11/2019 Office Visit Sleep Disorders Celsa Tafoya CRNP [address] [address] [phone] 01/12/2019 Office Visit Cardiology Marjorie Powell PA-C [address] [address] [phone] 01/17/2019 Pharmacy Pharmacy [facility] [address] [address] 01/24/2019 Office Visit Nephrology Gia White MD [address] [facility] [place] [address] [phone] 02/26/2019 Office Visit Family Medicine Kevin Whiteside DO [address] [address] [phone] 03/14/2019 Office Visit Cardiology Rey Woodall MD [address] [address] [phone] 05/04/2019 Office Visit Sleep Disorders Celsa Tafoya CRNP [address] [place] [address] [phone] Health Maintenance Due Date Last Done Comments DIABETES-EYE EXAM 02/24/2011 02/24/2010 (Do ne elsewhere), 12/18/2009, 02/18/2008 (Done elsewhere) PAP SMEAR-EVERY 3 YRS,AGES 21-65 05/11/2016 05/11/2013, 03/01/2008, 10/19/2006, Additional history exists CKD PHOS USE SMARTSET 84982 12/29/2018 04/0 01/2018, 08/26/2009, 08/25/2009, Additional history exists DIABETES-FOOT EXAM 12/29/2018 12/29/2017, 0 10/21/2016, 12/11/2015, Additional history exists DIABETES-HGBA1C EVERY 6 MONTHS 03/27/2019 09/27/2018, 05/01/2018, 12/29/2017, Additional history exists Yearly B-12 05/16/2019 05/16/2018 BREAST CANCER SCREENING DISCUSSION YEARLY AGES 40-75 06/23/2019 06/23/2018, 05/09/2015, 07/12/2014, Additional history exists CKD GFR USE SMARTSET 21388 06/25/201912/23, 12/18/2018, 12/14/2018, Additional history exists CKD HGB USE SMARTSET 79617 12/24/201912/23, 12/08/2018, 06/06/2018, Additional history exists PNEUMOCOCCAL [...] For more information, please contact: [place] [phone] Latest Code Status on File Code Status [...]
--- OUTSIDE RECORDS SUMMARY | 2023-06-01 05:54 | External Medical Summary | Summary of Care ---
Author Name Unknown Organization [place] [address] Care Team Providers Care Tassel Clipper Name Role Phone Kevin Whiteside Primary Care Provider Reason for Visit * Reason Comments case management Encounter Details Date Type Department Care Team Description 12/19/2018 Telephone Internal Medicine [address] [address] Frances Nicholson RN [address] [place] [address] case management Allergies Active Allergy Reactions Severity Noted Date Comments Heparin 09/04/2009 Heparin Induced Thrombocytopenia Empagliflozin Other (Please comment) Medium 05/17/2018 3 yeast infections in 6 weeks after starting Morphine And Related 09/16/1997 Hallucinations Tetanus Toxoid Other (Please comment) 06/15/2011 Passed out documented as of this encounter (statuses as of 12/19/2018) Medications Medication Sig Dispensed Refills Start Date [...] Each 5 08/01/2018 Active ergocalciferol (VITAMIN D2,DRISDOL,) 26143 UNIT CapsuleIndications: Vitamin D deficiency Take 1 [...] as of this encounter (statuses as of 12/19/2018) Active Problems Problem Noted Date Impetigo 09/27/2018 [...] as of this encounter (statuses as of 12/19/2018) Resolved Problems Problem Noted Date Resolved Date [...] as of this encounter (statuses as of 12/19/2018) Immunizations Name Dates Previously Given Next Due [...] Telephone Encounter - Frances Nicholson RN - 12/19/2018 10:15 AM EDT Call placed to home number listed in Epic. No answer, left message for return call on Frances Nicholson RN, [facility] Rn Patient Care [phone] documented in this encounter Plan of Treatment Upcoming Encounters Date Type Specialty Care Team Description 12/25/2018 Office Visit Sleep Disorders Paige Patel MD [address] [place] [address] [place] [address] [phone] 12/26/2018 Home Visit Family Medicine Mira Duong, [facility] [employer] [address] [place] [address] 01/11/2019 Office Visit Sleep Disorders Celsa Tafoya CRNP [address] [facility] [place] [address] [phone] 01/12/2019 Office Visit Cardiology Marjorie Powell PA-C [address] [facility] [place] [address] [phone] 01/17/2019 Pharmacy Pharmacy [facility] [address] [place] [address] 01/24/2019 Office Visit Nephrology Gia White MD [address] [facility] [place] [address] [phone] 02/26/2019 Office Visit Family Medicine Kevin Whiteside DO [address] [address] [address] [phone] 03/14/2019 Office Visit Cardiology Rey Woodall MD [address] [address] [phone] 05/04/2019 Office Visit Sleep Disorders Celsa Tafoya CRNP [address] [place] [address] [phone] Health Maintenance Due Date Last Done Comments DIABETES-EYE EXAM 02/24/2011 02/24/2010 (Do ne elsewhere), 12/18/2009, 02/18/2008 (Done elsewhere) PAP SMEAR-EVERY 3 YRS,AGES 21-65 05/11/2016 05/11/2013, 03/01/2008, 10/19/2006, Additional history exists CKD PHOS USE SMARTSET 48551 12/29/2018 04/0 01/2018, 08/26/2009, 08/25/2009, Additional history exists DIABETES-FOOT EXAM 12/29/2018 12/29/2017, 0 10/21/2016, 12/11/2015, Additional history exists DIABETES-HGBA1C EVERY 6 MONTHS 03/27/2019 09/27/2018, 05/01/2018, 12/29/2017, Additional history exists Yearly B-12 05/16/2019 05/16/2018 CKD GFR USE SMARTSET 18980 06/20/201912/18, 12/08/2018, 11/06/2018, Additional history exists BREAST CANCER SCREENING DISCUSSION YEARLY AGES 40-75 06/23/2019 06/23/2018, 05/09/2015, 07/12/2014, Additional history exists CKD HGB USE SMARTSET 61528 12/09/201912/08, 06/06/2018, 06/05/2018, Additional history exists PNEUMOCOCCAL 19-64 MEDIUM RISK [...] For more information, please contact: [place] [phone] Latest Code Status on File Code Status [...]
--- OUTSIDE RECORDS SUMMARY | 2023-06-01 05:54 | External Medical Summary | Summary of Care ---
Author Name Unknown Organization [place] [address] Care Team Providers Care Carbon Plant Grinder Name Role Phone Kevin Whiteside DO Primary Care Provider Reason for Visit * Reason Comments Hospital Follow-Up discharged from [facility] 12/14-admitted for CHF Hospital Follow-Up Encounter Details Date Type Department Care Team Description 12/18/2018 Office Visit [facility] [address] [facility] [place] [address] Kevin [facility] DO [id number] Hospital discharge follow-up*; Mild episode of recurrent major depressive disorder ([facility]); Type 2 diabetes mellitus with hemoglobin A1c goal of 7.0%-8.0% ([facility]); Uncontrolled type 2 diabetes mellitus with stage 3 chronic kidney disease, with long-term current use of insulin ([facility]); HTN, goal below 130/80; Body mass index (BMI) of 50.0 to 59.9 in adult ([facility]); Fibromyalgia; Moderate episode of recurrent major depressive disorder ([facility]); Primary osteoarthritis of both knees Allergies Active Allergy Reactions Severity Noted Date Comments Heparin 09/04/2009 Heparin Induced Thrombocytopenia Empagliflozin Other (Please comment) Medium 05/17/2018 3 yeast infections in 6 weeks after starting Morphine And Related 09/16/1997 Hallucinations Tetanus Toxoid Other (Please comment) 06/15/2011 Passed out documented as of this encounter (statuses as of 12/18/2018) Medications Medication Sig Dispensed Refills Start Date [...] bedtime. 90 Tab 4 08/01/20 18 Active metoprolol tartrate (LOPRESSOR) 25 MG TabletIndications: HTN, goal below 130/80,Acute diastolic congestive heart failure (HCC),Body mass index (BMI) of 50.0 to 59.9 in adult (HCC),Hypoxemia,OS A (obstructive sleep apnea),HTN, goal below 140/80 Take 2 Tabs by mouth 2 times a day. 360 Tab 3 08/01/20 18 Active Glucose Blood (for[MD]UCH ULTRA BLUE) STRP Check sugars 3-4 times daily 360 Strip 5 08/01/20 18 Active ONETOUCH DELICA LANCETS 33G MISC Check blood sugars 3-4 times daily 180 Each 5 08/01/20 18 Active ergocalciferol (VITAMIN D2,DRISDOL,) 55015 UNIT CapsuleIndications :Vitamin D deficiency Take 1 [...] day. 0 Active DULoxetine (CYMBALTA) 60 MG CPEPIndications:Fi bromyalgia,Moderat e episode of recurrent major depressive disorder (HCC),Primary osteoarthritis of both knees Take 1 Cap by mouth daily. Do not cut, crush or chew 90 Cap 5 12/19/19 19 Active traMADol (ULTRAM) 50 MG Tablet Take 1 Tab by mouth every 6 hours as needed for Pain. 30 Tab 0 12/19/19 19 Active DULoxetine (CYMBALTA) 30 MG CPEPIndications:Fi bromyalgia,Moderat e episode of recurrent major depressive disorder (HCC),Primary osteoarthritis of both knees Take 1 Cap by mouth daily. 90 Cap 1 11/14/19 19 019 Discontinued spironolactone (ALDACTONE) 25 MG Tablet 1/2 tablet daily 0 12/16/19 19 019 Discontinued documented as of this encounter (statuses as of 12/18/2018) Active Problems Problem Noted Date Impetigo 09/27/2018 [...] 10/14/2014 Overview: ICD-10 update of inactive term Clay filter in place 08/19/2014 History of pulmonary [...] as of this encounter (statuses as of 12/18/2018) Resolved Problems Problem Noted Date Resolved Date [...] as of this encounter (statuses as of 12/18/2018) Immunizations Name Dates Previously Given Next Due [...] Vital Sign Reading Time Taken Blood Pressure 124/68 12/18/2018 1:00 PM EDT Pulse 88 12/18/2018 1:00 PM EDT Temperature 36.4 C (97.5 F) 12/18/2018 1 :00 PM EDT Respiratory Rate 22 12/18/2018 1:00 PM EDT Oxygen Saturation 97% 12/18/2018 1:0 0 PM EDT Inhaled Oxygen Concentration - - Weight 157.9 kg (348 lb) 12/18/2018 1:0 0 PM EDT Height - - Body Mass Index 59.34 12/18/2018 1:00 PM EDT documented in this encounter Progress Notes * Kevin Whiteside, DO - 12/18/2018 1:12 PM EDT There are no exam notes on file for this visit. ASSESSMENT/PLAN: 1. Hospital discharge follow-up Compliant with meds Continue labs and daily weights as directed Keep all scheduled f/u - DISCH MED RECON CUR MED LIS 2. Mild episode of recurrent major depressive disorder (HCC) Increasing dose of Duloxetine to 60mg to try to help improve her neuropathic and OA pain which has flared since reduction of the Gabapentin. Also giving short PRN supply of ultram. 3. Type 2 diabetes mellitus with hemoglobin A1c goal of 7.0%-8.0% ([facility]) Continue to manage and watch blood sugars 4. Uncontrolled type 2 diabetes mellitus with stage 3 chronic kidney disease, with long-term current use of insulin ([facility]) Following with nephrology, continue labs and f/u 5. HTN, goal below 130/80 Stable, controlled, will monitor 6. Body mass index (BMI) of 50.0 to 59.9 in adult ([facility]) Provided education 7. Fibromyalgia Increased dose of duloxetine to improve pain control - DULoxetine (CYMBALTA) 60 MG CPEP; Take 1 Cap by mouth daily. Do not cut, crush or chew Dispense: 90 Cap; Refill: 5 8. Moderate episode of recurrent major depressive disorder (HCC) - DULoxetine (CYMBALTA) 60 MG CPEP; Take 1 Cap by mouth daily. Do not cut, crush or chew Dispense: 90 Cap; Refill: 5 9. Primary osteoarthritis of both knees - DULoxetine (CYMBALTA) 60 MG CPEP; Take 1 Cap by mouth daily. Do not cut, crush or chew Dispense: 90 Cap; Refill: 5 HPI: Stephanie Camp is a 63 year old female who: Stable following hospitalization for heart failure/volume overload Maintaining weight, doing labs today and weights daily Was reduced in her dose of Gabapentin due to concerns over fluid retention Pain much worse today, patient not sleeping well because of it. Knees bothering her as well. Blood sugars at home have been ok, notes that diet has been off since returning home, but Not adding salt to foods. ROS: CONSTITUTIONAL: no weight loss, no fevers, no sweats HEENT: no change in vision or hearing, no congestion, no sore throat CARDIAC: no chest pain, no palpitations, no orthopnea, no AVENDAÑO, no syncope RESP: no wheezing and no SOB GI: no pain, no NVDC, no melena/hematochezia SKIN: no rashes MSK: Body wide pain, legs, knees an dfeet : no dysuria or discharge NEURO: no memory loss, no numbness, neuropathic pain in feet PSYCH: no SI/HI PHYSICAL EXAMINATION: BP 124/68 | Pulse 88 | Temp (Src) 97.5 (Tympanic) | Resp 22 | Wt 348 lbs (157.852kg) | BMI 59.34 kg/m | BSA 2.67 m | SaO2 97% | LMP 03/11/2003 GENERAL: alert, healthy, in mild pain induced distress, well nourished and well developed HEAD: [...] clear to auscultation bilaterally. No wheezing/rales/rhonchi ABDOMEN: morbidly obese, abdomen soft, non-tender, normal bowel sounds and no masses or organomegaly SKIN: skin color, texture, turgor are normal, no rashes or significant lesions EXTREMITIES: R>L edema, +1 to the knee on the R, non pitting edema on L leg to the knee NEURO: alert & oriented x 3 with fluent speech, no focal motor/sensory deficits, gait normal, reflexes normal and symmetric MSK:reduced strength, ROM limited due to pain and poor strength 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 Nocturnal hypoxemia G47.34 ELISSA (obstructive sleep apnea) G47.33 Venous insufficiency I87.2 HTN, goal below 130/80 I10 History of pulmonary embolus (PE) Z86.711 Statin intolerance Z78.[address] Z95.828 Type 2 diabetes mellitus with hemoglobin A1c goal of 7.0%-8.0% ([facility]) E11.9 Fibromyalgia M79.7 Abnormality of gait R26.9 Restless legs syndrome G25.81 Gastroesophageal reflux disease with esophagitis K21.0 Uncontrolled type 2 diabetes mellitus with stage 3 chronic kidney disease, with long-term current use of insulin ([facility]) E11.22, E11.65, N18.3, Z79.4 Body mass index (BMI) of 50.0 to 59.9 in adult ([facility]) Z68.43 Controlled substance agreement signed Z79.899 Chronic diastolic congestive heart failure ([facility]) I50.32 Thoracic back pain M54.6 Mild episode of recurrent major depressive disorder ([facility]) F33.0 Impetigo L01.00 Lumbar radiculopathy M54.16 Past Medical History: Diagnosis Date ELSIE (acute kidney injury) ([facility]) 06/12/2018 Allergic rhinitis due to other allergen Backache Diverticulosis of colon 01/28/06 DM type 2, not at goal ([facility]) ELLIE (generalized anxiety disorder) 09/13/2009 Goiter [address] filter in place 08/19/2014 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[facility]) 08/22/2009 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[facility]) 06/12/2018 History of pulmonary embolus (PE) 07/16/2014 HTN, goal below 140/90 Obesity, BMI not known Perforation of intestine ([facility]) 1996 COLON -- 1996 Pneumonia in aspergillosis(484.6) 09/14/2009 Spontaneous pneumothorax 09/14/2009 Statin intolerance 07/16/2014 Type 2 diabetes mellitus with hemoglobin A1c goal of 7.0%-8.0% ([facility]) 10/14/2014 ICD-10 update of inactive term Vaginal karmen 07/13/2018 Past Surgical History: Procedure Laterality Date ARTHROPLASTY KNEE TOTAL Right 07/24/14 R COLONOSCOPY, DIAGNOSTIC (RECTUM) 02/18/2016 normal, repeat 10 yrs/[facility] COLONOSCOPY, GI REFERRAL OP 01/28/06 diverticulosis--repeat 10 years INCISION OF [place], PLANNED 06/03/2011 TRACHEOSTOMY PLANNED performed by DANNY HOLDER at [facility] KNEE ARTHROSCOPY/DEBRIDEMENT 07/[address] PERMANENT GASTROSTOMY TUBE 09/06/09 GASTROSTOMY WITH CONSTUCTION GASTRIC TUBE performed by AMADOU NUNEZ at OR [facility] REMOVAL OF THYROID GLAND 06/15/2011 THYROIDECTOMY INCLUDING SUBSTERNAL THYROID CERVICAL APPROACH performed by DANNY HOLDER at OR [facility] REMOVE GALLBLADDER 09/06/09 CHOLECYSTECTOMY performed by AMADOU NUNEZ at [facility] REPAIR RECURRENT INCISIONAL HERNIA 1998 REVISION OF COLOSTOMY, SIMPLE 1997 SUTURE, LARGE INTESTINE W/COLOSTOMY 1996 perforation R colon with colostomy VENA CAVA FILTER/LIGATION/CLIP 08/19/09 Frank filter placement through the right femoral 08/19/[address] Lerma at [facility] Current Outpatient Medications Medication Sig Dispense Refill DULoxetine (CYMBALTA) 60 MG CPEP Take 1 Cap by mouth daily. Do not cut, crush or chew 90 Cap 5 traMADol (ULTRAM) 50 MG Tablet Take 1 Tab by mouth every 6 hours as needed for Pain. 30 Tab 0 gabapentin (NEURONTIN) 100 MG Capsule Take 100 mg by mouth 3 times a day. spironolactone (ALDACTONE) 12.5 MG TABS Take by [...] Syringe Dosing Unit 5 ergocalciferol (VITAMIN D2,DRISDOL,) 93405 UNIT Capsule Take 1 Cap by mouth [...] (Please comment) Passed out Kevin Whiteside DO [facility] 132 [facility] [place] [address] (This note was completed using the dictation program Fluency Direct. As such, there may be misspellings, word substitutions, or other variations that should not change the essence of the clinical content of this encounter note.If there is need for further clarification, please direct questions to the provider listed above.) documented in this encounter Plan of Treatment Upcoming Encounters Date Type Specialty Care Team Description 12/25/2018 Office Visit Sleep Disorders Paige Patel MD [address] [facility] [place] [address] 12/26/2018 Home Visit Family Medicine Mira Duong, Community Health Rehab Manager [address] [place] [address] [phone] 01/11/2019 Office Visit Sleep Disorders Celsa Tafoya CRNP [address] [place] [address] [phone] 01/12/2019 Office Visit Cardiology Marjorie Powell PA-C [address] [place] [address] [phone] 01/17/2019 Pharmacy Pharmacy [facility] [address] [place] [address] 01/24/2019 Office Visit Nephrology Gia White MD [address] [facility] [place] [address] [phone] 02/26/2019 Office Visit Family Medicine Kevin Whiteside DO [address] [place] [address] [phone] 03/14/2019 Office Visit Cardiology Rey Woodall MD [address] [place] [address] [phone] 05/04/2019 Office Visit Sleep Disorders Celsa Tafoya CRNP [address] [place] [address] Health Maintenance Due Date Last Done Comments DIABETES-EYE EXAM 02/24/2011 02/24/2010 (Do ne elsewhere), 12/18/2009, 02/18/2008 (Done elsewhere) PAP SMEAR-EVERY 3 YRS,AGES 21-65 05/11/2016 05/11/2013, 03/01/2008, 10/19/2006, Additional history exists CKD PHOS USE SMARTSET 12874 12/29/2018 04/0 01/2018, 08/26/2009, 08/25/2009, Additional history exists DIABETES-FOOT EXAM 12/29/2018 12/29/2017, 0 10/21/2016, 12/11/2015, Additional history exists DIABETES-HGBA1C EVERY 6 MONTHS 03/27/2019 09/27/2018, 05/01/2018, 12/29/2017, Additional history exists Yearly B-12 05/16/2019 05/16/2018 CKD GFR USE SMARTSET 72612 06/10/201912/08, 11/06/2018, 10/30/2018, Additional history exists BREAST CANCER SCREENING DISCUSSION YEARLY AGES 40-75 06/23/2019 06/23/2018, 05/09/2015, 07/12/2014, Additional history exists CKD HGB USE SMARTSET 93703 12/09/201912/08, 06/06/2018, 06/05/2018, Additional history exists PNEUMOCOCCAL [...] Hospital discharge follow-up- Primary Other follow-up examination Mild episode of recurrent major depressive disorder (HCC) Type 2 diabetes mellitus with hemoglobin A1c goal of 7.0%-8.0% (HCC) Uncontrolled type 2 diabetes mellitus with stage 3 chronic kidney disease, with long-term current use of insulin (HCC) HTN, goal below 130/80 Unspecified essential hypertension Body mass index (BMI) of 50.0 to 59.9 in adult (HCC) Fibromyalgia Mylagia and myositis, unspecified Moderate episode of recurrent major depressive disorder (HCC) Primary osteoarthritis of both knees Primary localized osteoarthrosis, lower leg documented in this encounter Advance Directives Patient has advance care planning documents, and code status on file. For more information, please contact: [place] [phone] Latest Code Status on File Code Status [...]
--- OUTSIDE RECORDS SUMMARY | 2023-06-01 05:54 | External Medical Summary | Summary of Care ---
Author Name Unknown Organization [place] [address] Care Team Providers Care Glue Sprayer Name Role Phone Kevin Whiteside Primary Care Provider Encounter Details Date Type Department Care Team Description 12/23/2018 Scan Encounter Unspecified Department <No scans attached> Allergies Active Allergy Reactions Severity Noted Date Comments Heparin 09/04/2009 Heparin Induced Thrombocytopenia Empagliflozin Other (Please comment) Medium 05/17/2018 3 yeast infections in 6 weeks after starting Morphine And Related 09/16/1997 Hallucinations Tetanus Toxoid Other (Please comment) 06/15/2011 Passed out documented as of this encounter (statuses as of 12/25/2018) Medications Medication Sig Dispensed Refills Start Date [...] Each 5 08/01/2018 Active ergocalciferol (VITAMIN D2,DRISDOL,) 62962 UNIT CapsuleIndications: Vitamin D deficiency Take 1 [...] as of this encounter (statuses as of 12/25/2018) Active Problems Problem Noted Date Impetigo 09/27/2018 [...] as of this encounter (statuses as of 12/25/2018) Resolved Problems Problem Noted Date Resolved Date [...] as of this encounter (statuses as of 12/25/2018) Immunizations Name Dates Previously Given Next Due [...] Office Visit Sleep Disorders Paige Patel MD [address] [place] [address] [place] [address] [phone] 01/11/2019 Office Visit Sleep Disorders Celsa Tafoya CRNP 132 [facility] [place] [address] [phone] 01/12/2019 Office Visit [facility]iology [facility]C [facility] [place] [address] [phone] 01/17/2019 Pharmacy Pharmacy [facility] [address] [place] [address] 01/24/2019 Office Visit Nephrology Gia White MD [address] [facility] [place] [address] [phone] 02/26/2019 Office Visit Family Medicine Kevin Whiteside DO [address] [place] [address] [phone] 03/14/2019 Office Visit Cardiology Rey Woodall MD [address] [place] [address] 05/04/2019 Office Visit Sleep Disorders Celsa Tafoya CRNP 132 [facility] [place] [address] [phone] Health Maintenance Due Date Last Done Comments DIABETES-EYE EXAM 02/24/2011 02/24/2010 (Do ne elsewhere), 12/18/2009, 02/18/2008 (Done elsewhere) PAP SMEAR-EVERY 3 YRS,AGES 21-65 05/11/2016 05/11/2013, 03/01/2008, 10/19/2006, Additional history exists CKD PHOS USE SMARTSET 56634 12/29/2018 04/0 01/2018, 08/26/2009, 08/25/2009, Additional history exists DIABETES-FOOT EXAM 12/29/2018 12/29/2017, 0 10/21/2016, 12/11/2015, Additional history exists DIABETES-HGBA1C EVERY 6 MONTHS 03/27/2019 09/27/2018, 05/01/2018, 12/29/2017, Additional history exists Yearly B-12 05/16/2019 05/16/2018 CKD GFR USE SMARTSET 20347 06/20/201912/18, 12/08/2018, 11/06/2018, Additional history exists BREAST CANCER SCREENING DISCUSSION YEARLY AGES 40-75 06/23/2019 06/23/2018, 05/09/2015, 07/12/2014, Additional history exists CKD HGB USE SMARTSET 06305 12/09/201912/08, 06/06/2018, 06/05/2018, Additional history exists PNEUMOCOCCAL [...] For more information, please contact: [place] [phone] Latest Code Status on File Code Status [...]
--- OUTSIDE RECORDS SUMMARY | 2023-06-01 05:54 | External Medical Summary | Summary of Care ---
Author Name Unknown Organization [place] [address] Care Team Providers Care Grocery Manager Name Role Phone Kevin Whiteside Primary Care Provider Reason for Visit * Reason Comments case management Encounter Details Date Type Department Care Team Description 12/21/2018 Telephone Internal Medicine [address] [address] Frances Nicholson RN [address] [place] [address] case management Allergies Active Allergy Reactions Severity Noted Date Comments Heparin 09/04/2009 Heparin Induced Thrombocytopenia Empagliflozin Other (Please comment) Medium 05/17/2018 3 yeast infections in 6 weeks after starting Morphine And Related 09/16/1997 Hallucinations Tetanus Toxoid Other (Please comment) 06/15/2011 Passed out documented as of this encounter (statuses as of 12/21/2018) Medications Medication Sig Dispensed Refills Start Date [...] Each 5 08/01/2018 Active ergocalciferol (VITAMIN D2,DRISDOL,) 19776 UNIT CapsuleIndications: Vitamin D deficiency Take 1 [...] as of this encounter (statuses as of 12/21/2018) Active Problems Problem Noted Date Impetigo 09/27/2018 [...] as of this encounter (statuses as of 12/21/2018) Resolved Problems Problem Noted Date Resolved Date [...] as of this encounter (statuses as of 12/21/2018) Immunizations Name Dates Previously Given Next Due [...] Telephone Encounter - Frances Nicholson RN - 12/21/2018 10:26 AM EDT PMH: DM, HTN, SOA with CPAP, history of PE, frank filter in place, dyslipidemia-statin intol, GERD, Fibromyalgia, depression/anxiety New-acute diastolic HF and ELSIE sent from PCP office abnormal labs and shortness of breath. x-ray concerning for atypical pneumonia 06/06/18-[facility] admit Acute respiratory failure with hypoxia [...] weight 343 on d/c 06/10/18 d/c from [facility] new on Lasix, potassium and Mg Stopped Metformin and HCTZ 12/08 [facility] admit acute decompensated diastolic HF Consulted Cardiology and nephrology 12/14/18 D/c to home Added Spirolactone Increased Lasix to 80 mg BID (4-6 hours apart) Weekly BMP x 4 weights and home BP cuff D/c weight 351.2 12/18-Dr Whiteside 01/12-cards 5/1-neph ROSA wk 1, 2nd call Spoke with pt Reports that she saw Dr Whiteside in follow-up and had labs done. Also received her scale and BP cuff. Weighed herself today and weight was 336 which seems low-did not come thru on [facility]. Hasn't checked BP as of yet. Doesn't feel like she has any swelling and is feeling much less SOB. Having issues with aches and pains since Gabapentin was cut back. Thinking of joining a gym-Dr Whiteside thought it would be OK. Also uncertain about BS as has 2 meters and they are reading different-one said BS was 225, other saying 195. Had appt with Mr Fonseca at office of aging about her insurance-still trying to sort out it-may lose her healthcare as of 12/24. Awaiting info from medicare and form [place] Denies chest pain Denies increased SOB, no cough/congestion Denies increased swelling-pt reporting very little lower leg edema Denies N/V, admits that appetite is decreased Denies diff with bowels or bladder Admits to increased pain/discomfort since Gabapentin decreased-can use Tramadol, but makes her sleepy Reviewed HF symptom monitoring: -Weigh self daily [...] if at night -increased fatigue or vertigo Aware to have weekly labs done per nephrology Will have LES see if can assist with insurance issues as well-pt working with Mr Fonseca thru [facility] Frances Nicholson RN, [facility] Bindery Machine Feeder [employer] [phone] documented in this encounter Plan of Treatment Upcoming Encounters Date Type Specialty Care Team Description 12/25/2018 Office Visit Sleep Disorders Paige Patel MD [address] [place] [address] 12/26/2018 Home Visit Family Medicine Mira Duong, Community Health Certified Flex Endoscope Reprocessor [address] [place] [address] [phone] 01/11/2019 Office Visit Sleep Disorders Celsa Tafoya CRNP [address] [place] [address] 01/12/2019 Office Visit Cardiology Marjorie Powell PA-C [address] [facility] [place] [address] 01/17/2019 Pharmacy Pharmacy [facility] [place] [address] [facility] [place] [address] 01/24/2019 Office Visit Nephrology Gia White MD [address] [place] [address] 02/26/2019 Office Visit Family Medicine [facility]ide DO [facility] [place] [address] 03/14/2019 Office Visit Cardiology Rey Woodall MD [address] [facility] [place] [address] 05/04/2019 Office Visit Sleep Disorders Celsa Tafoya CRNP [address] [facility] [place] [phone] Health Maintenance Due Date Last Done Comments DIABETES-EYE EXAM 02/24/2011 02/24/2010 (Do ne elsewhere), 12/18/2009, 02/18/2008 (Done elsewhere) PAP SMEAR-EVERY 3 YRS,AGES 21-65 05/11/2016 05/11/2013, 03/01/2008, 10/19/2006, Additional history exists CKD PHOS USE SMARTSET 38700 12/29/2018 04/0 01/2018, 08/26/2009, 08/25/2009, Additional history exists DIABETES-FOOT EXAM 12/29/2018 12/29/2017, 0 10/21/2016, 12/11/2015, Additional history exists DIABETES-HGBA1C EVERY 6 MONTHS 03/27/2019 09/27/2018, 05/01/2018, 12/29/2017, Additional history exists Yearly B-12 05/16/2019 05/16/2018 CKD GFR USE SMARTSET 64045 06/20/201912/18, 12/08/2018, 11/06/2018, Additional history exists BREAST CANCER SCREENING DISCUSSION YEARLY AGES 40-75 06/23/2019 06/23/2018, 05/09/2015, 07/12/2014, Additional history exists CKD HGB USE SMARTSET 84010 12/09/201912/08, 06/06/2018, 06/05/2018, Additional history exists PNEUMOCOCCAL [...] For more information, please contact: [place] [phone] Latest Code Status on File Code Status [...]
--- OUTSIDE RECORDS SUMMARY | 2023-06-01 05:54 | External Medical Summary | Summary of Care ---
Author Name Unknown Organization [place] [address] Care Team Providers Care Foreign Collection Clerk Name Role Phone Kevin Whiteside DO Primary Care Provider Encounter Details Date Type Department Care Team Description 12/25/2018 Orders Only Family Practice [facility] [address] [place] [address] Kevin Whiteside DO [address] [facility] [address] Allergies Active Allergy Reactions Severity [...] Each 5 08/01/2018 Active ergocalciferol (VITAMIN D2,DRISDOL,) 19930 UNIT CapsuleIndications: Vitamin D deficiency Take 1 [...] (BMI) of 50.0 to 59.9 in adult (HCC),Hypoxemia,LEISSA (obstructive sleep apnea),HTN, goal below 130/80 Take [...] Office Visit Sleep Disorders Paige Patel MD [address] [place] [address] [place] [address] [phone] 01/11/2019 Office Visit Sleep Disorders Celsa Tafoya CRNP [address] [place] [phone] 01/12/2019 Office Visit Cardiology Marjorie Powell PA-C [address] [place] [address] [phone] 01/17/2019 Pharmacy Pharmacy [facility] Jeramie [address] [place] [address] 01/24/2019 Office Visit Nephrology Gia White MD 21 [facility] [place] [address] 02/26/2019 Office Visit Family Medicine Kevin Whiteside DO [address] [place] [address] [phone] 03/14/2019 Office Visit Cardiology Rey Woodall MD [address] [place] [address] [phone] 05/04/2019 Office Visit Sleep Disorders Celsa Tafoya CRNP [address] [place] [address] [phone] Health Maintenance Due Date Last Done Comments DIABETES-EYE EXAM 02/24/2011 02/24/2010 (Do ne elsewhere), 12/18/2009, 02/18/2008 (Done elsewhere) PAP SMEAR-EVERY 3 YRS,AGES 21-65 05/11/2016 05/11/2013, 03/01/2008, 10/19/2006, Additional history exists CKD PHOS USE SMARTSET 99370 12/29/2018 04/0 01/2018, 08/26/2009, 08/25/2009, Additional history exists DIABETES-FOOT EXAM 12/29/2018 12/29/2017, 0 10/21/2016, 12/11/2015, Additional history exists DIABETES-HGBA1C EVERY 6 MONTHS 03/27/2019 09/27/2018, 05/01/2018, 12/29/2017, Additional history exists Yearly B-12 05/16/2019 05/16/2018 CKD GFR USE SMARTSET 42594 06/20/201912/18, 12/08/2018, 11/06/2018, Additional history exists BREAST CANCER SCREENING DISCUSSION YEARLY AGES 40-75 06/23/2019 06/23/2018, 05/09/2015, 07/12/2014, Additional history exists CKD HGB USE SMARTSET 38993 12/09/201912/08, 06/06/2018, 06/05/2018, Additional history exists PNEUMOCOCCAL [...] Priority Date/Time Associated Diagnosis Comments CHEMISTRY-OUTSIDE Routine 12/23/2018 documented in this encounter Results * CHEMISTRY-OUTSIDE (12/23/2018) CREATININE-OUTSIDE LAB 2.3(A) 0.6 - 1.3 MG/DL OU TSIDE LAB (SEE SCANNED REPORT) GFR ESTIMATED-OUTSIDE LAB OU TSIDE LAB (SEE SCANNED REPORT) POTASSIUM-OUTSIDE LAB 4.0 3.3 - 5.0 MEQ/L OUT SIDE LAB (SEE SCANNED REPORT) GLUCOSE-OUTSIDE LAB 241(A) 70 - 99 MG/DL OUTSIDE LAB (SEE SCANNED REPORT) HOURS FASTING OUTSIDE LAB (S EE SCANNED REPORT) TRIGLYCERIDES-OUTSIDE LAB OU TSIDE LAB (SEE SCANNED REPORT) CHOLESTEROL-OUTSIDE LAB OUTS SUSAN LAB (SEE SCANNED REPORT) HDL-OUTSIDE LAB OUTSIDE LAB (SEE SCANNED REPORT) CHOL/HDL RATIO-OUTSIDE LAB O UTSIDE LAB (SEE SCANNED REPORT) LDL (CALCULATED)-OUTSIDE LAB OUTSIDE LAB (SEE SCANNED REPORT) LDL (DIRECT MEASURE)-OUTSIDE LAB OUTSIDE LAB (SEE SCANNED REPORT) HEMOGLOBIN, V2R-MUORYJA LAB OUTSIDE LAB (SEE SCANNED REPORT) PHOSPHORUS-OUTSIDE LAB OUTSI DE LAB (SEE SCANNED REPORT) PTH-OUTSIDE LAB OUTSIDE LAB (SEE SCANNED REPORT) MICROALBUMIN RATIO-OUTSIDE LAB OUTSIDE LAB (SEE SCANNED REPORT) PROTEIN, UA-OUTSIDE LAB OUTS SUSAN LAB (SEE SCANNED REPORT) HEMOGLOBIN-OUTSIDE LAB 13.2 12.0 - 16.0 G/DL O UTSIDE LAB (SEE SCANNED REPORT) CHEMISTRY COMMENT-OUTSIDE LAB Comment:SEE SCAN: [facility]: CBCD, INF A, INF B, ISTAT 8 PANEL OUTSIDE LAB (SEE SCANNED REPORT) Narrative Performed At Performing Organization Address City/State/Zipcod e Phone Number OUTSIDE LAB (SEE SCANNED REPORT) documented in this encounter Advance Directives Patient has advance care planning documents, and code status on file. For more information, please contact: [place] [phone] Latest Code Status on File Code Status [...]
--- OUTSIDE RECORDS SUMMARY | 2023-06-01 05:54 | External Medical Summary ---
Author Name Unknown Address [address] [facility] [place] [address] Phone Organization K0G:Jaylan Bobo Ordaz [address] [facility] [place] [address] Laboratory Report Ordering Provider Test Date Status RAUL TAYLOR 12/18/2018 13:36:00 Final Observation Date Value Abnormality Reference Status BUN 12/18/2018 15:42 35 Above high normal 6-20 Final Creatinine 12/18/2018 15:42 1.5 Above high normal 0.5- 1.0 Final Performing Location [facility] [place]amie Ordaz [address] [place] [address]
--- OUTSIDE RECORDS SUMMARY | 2023-06-01 05:54 | External Medical Summary | Summary of Care ---
Author Name Unknown Organization [place] [address] Care Team Providers Care Drug Abuse Counselor Name Role Phone Kevin Whiteside Primary Care Provider Encounter Details Date Type Department Care Team Description 12/14/2018 Scan Encounter Unspecified Department <No scans attached> [...] Tab 3 08/01/20 18 Active Glucose Blood (ONETOUCH ULTRA BLUE) STRP Check sugars 3-4 times daily 360 Strip 5 08/01/20 18 Active ONETOUCH DELICA LANCETS 33G MISC Check blood sugars 3-4 times daily 180 Each 5 08/01/20 18 Active ergocalciferol (VITAMIN D2,DRISDOL,) 62712 UNIT CapsuleIndications :Vitamin D deficiency Take 1 [...] 3-4 times a day. 400 Strip 3 12/05/20 18 Active ACCU-CHEK SOFTCLIX LANCETS MISC Test [...] mL 4 12/02/19 19 Active DULoxetine (CYMBALTA) 30 MG CPEPIndications:Fi bromyalgia,Moderat e episode of recurrent major depressive disorder (HCC),Primary osteoarthritis of both knees Take 1 Cap by mouth daily. 90 Cap 1 11/14/19 19 019 Discontinued documented as of this [...] 10/14/2014 Overview: ICD-10 update of inactive term [place] filter in place 08/19/2014 History of pulmonary [...] Visit Sleep Disorders Paige Patel MD [address] [place] [address] [phone] 12/26/2018 Home Visit Family Medicine Mira Duong, Community Health Paralegal Instructor [address] [place] [address] [phone] 01/11/2019 Office Visit Sleep Disorders Celsa Tafoya CRNP [address] [facility] [place] [address] 01/12/2019 Office Visit Cardiology Marjorie Powell PA-C [address] [facility] [place] [address] [phone] 01/17/2019 Pharmacy Pharmacy [facility] [address] [facility] [place] [address] 01/24/2019 Office Visit Nephrology Gia White MD [address] [facility] [place] [address] [phone] 02/26/2019 Office Visit Family Medicine [facility]ide DO [facility] [place] [address] [phone] 03/14/2019 Office Visit Cardiology Rey Woodall MD [address] [place] [address] 05/04/2019 Office Visit Sleep Disorders [facility]els[facility] CRNP [facility] [place] [address] [phone] Health Maintenance Due Date Last Done Comments DIABETES-EYE EXAM 02/24/2011 02/24/2010 (Do ne elsewhere), 12/18/2009, 02/18/2008 (Done elsewhere) PAP SMEAR-EVERY 3 YRS,AGES 21-65 05/11/2016 05/11/2013, 03/01/2008, 10/19/2006, Additional history exists CKD PHOS USE SMARTSET 00848 12/29/2018 04/0 01/2018, 08/26/2009, 08/25/2009, Additional history exists DIABETES-FOOT EXAM 12/29/2018 12/29/2017, 0 10/21/2016, 12/11/2015, Additional history exists DIABETES-HGBA1C EVERY 6 MONTHS 03/27/2019 09/27/2018, 05/01/2018, 12/29/2017, Additional history exists Yearly B-12 05/16/2019 05/16/2018 CKD GFR USE SMARTSET 86280 06/10/201912/08, 11/06/2018, 10/30/2018, Additional history exists BREAST CANCER SCREENING DISCUSSION YEARLY AGES 40-75 06/23/2019 06/23/2018, 05/09/2015, 07/12/2014, Additional history exists CKD HGB USE SMARTSET 59485 12/09/201912/08, 06/06/2018, 06/05/2018, Additional history exists PNEUMOCOCCAL [...] For more information, please contact: [place] [phone] Latest Code Status on File Code Status [...]
--- OUTSIDE RECORDS SUMMARY | 2023-06-01 05:54 | External Medical Summary | Summary of Care ---
Author Name Unknown Organization [place] [address] Care Team Providers Care Tower Operator Name Role Phone Kevin Whiteside Primary Care Provider Encounter Details Date Type Department Care Team Description 12/25/2018 Scan Encounter Unspecified Department <No scans attached> [...] Each 5 08/01/2018 Active ergocalciferol (VITAMIN D2,DRISDOL,) 59856 UNIT CapsuleIndications: Vitamin D deficiency Take 1 [...] Disorders Celsa Tafoya CRNP [address] [place] [address] [phone] 01/12/2019 Office Visit Cardiology Marjorie Powell PA-C [address] [place] [address] [phone] 01/17/2019 Pharmacy Pharmacy [facility] [address] [place] [address] 01/24/2019 Office Visit Nephrology Gia White MD [address] [place] [address] [phone] 02/26/2019 Office Visit Family Medicine Kevin Whiteside DO [address] [place] [address] 03/14/2019 Office Visit Cardiology Rey Woodall MD [address] [place] [address] [phone] 05/04/2019 Office Visit Sleep Disorders Celsa Tafoya CRNP [address] [place] [address] [phone] Health Maintenance Due Date Last Done Comments DIABETES-EYE EXAM 02/24/2011 02/24/2010 (Do ne elsewhere), 12/18/2009, 02/18/2008 (Done elsewhere) PAP SMEAR-EVERY 3 YRS,AGES 21-65 05/11/2016 05/11/2013, 03/01/2008, 10/19/2006, Additional history exists CKD PHOS USE SMARTSET 65897 12/29/2018 04/0 01/2018, 08/26/2009, 08/25/2009, Additional history exists DIABETES-FOOT EXAM 12/29/2018 12/29/2017, 0 10/21/2016, 12/11/2015, Additional history exists DIABETES-HGBA1C EVERY 6 MONTHS 03/27/2019 09/27/2018, 05/01/2018, 12/29/2017, Additional history exists Yearly B-12 05/16/2019 05/16/2018 BREAST CANCER SCREENING DISCUSSION YEARLY AGES 40-75 06/23/2019 06/23/2018, 05/09/2015, 07/12/2014, Additional history exists CKD GFR USE SMARTSET 97918 06/25/201912/23, 12/18/2018, 12/08/2018, Additional history exists CKD HGB USE SMARTSET 14327 12/24/201912/23, 12/08/2018, 06/06/2018, Additional history exists PNEUMOCOCCAL [...] For more information, please contact: [place] [phone] Latest Code Status on File Code Status [...]
--- OUTSIDE RECORDS SUMMARY | 2023-06-01 05:54 | External Medical Summary | Summary of Care ---
Author Name Unknown Organization [place] [address] Care Team Providers Care Network Architect Name Role Phone Kevin Whiteside Primary Care [...] Each 5 08/01/2018 Active ergocalciferol (VITAMIN D2,DRISDOL,) 14998 UNIT CapsuleIndications: Vitamin D deficiency Take 1 [...] Office Visit Sleep Disorders Paige Patel MD [address] [place] [address] [place] [address] [phone] 01/11/2019 Office Visit Sleep Disorders Celsa Tafoya CRNP [address] [facility] [place] [address] [phone] 01/12/2019 Office Visit Cardiology [facility]C [facility] [place] [address] [phone] 01/17/2019 Pharmacy Pharmacy [facility] [address] [place] [address] 01/24/2019 Office Visit Nephrology Gia White MD 21 [facility] [place] [address] [phone] 02/26/2019 Office Visit Family Medicine Kevin Whiteside DO [address] [place] [address] [phone] 03/14/2019 Office Visit Cardiology Rey Woodall MD [address] [place] [address] 05/04/2019 Office Visit Sleep Disorders Celsa Tafoya CRNP [address] [facility] [place] [address] [phone] Health Maintenance Due Date Last Done Comments DIABETES-EYE EXAM 02/24/2011 02/24/2010 (Do ne elsewhere), 12/18/2009, 02/18/2008 (Done elsewhere) PAP SMEAR-EVERY 3 YRS,AGES 21-65 05/11/2016 05/11/2013, 03/01/2008, 10/19/2006, Additional history exists CKD PHOS USE SMARTSET 82534 12/29/2018 04/0 01/2018, 08/26/2009, 08/25/2009, Additional history exists DIABETES-FOOT EXAM 12/29/2018 12/29/2017, 0 10/21/2016, 12/11/2015, Additional history exists DIABETES-HGBA1C EVERY 6 MONTHS 03/27/2019 09/27/2018, 05/01/2018, 12/29/2017, Additional history exists Yearly B-12 05/16/2019 05/16/2018 CKD GFR USE SMARTSET 03418 06/20/201912/18, 12/08/2018, 11/06/2018, Additional history exists BREAST CANCER SCREENING DISCUSSION YEARLY AGES 40-75 06/23/2019 06/23/2018, 05/09/2015, 07/12/2014, Additional history exists CKD HGB USE SMARTSET 04015 12/09/201912/08, 06/06/2018, 06/05/2018, Additional history exists PNEUMOCOCCAL [...] For more information, please contact: [place] [phone] Latest Code Status on File Code Status [...]
--- OUTSIDE RECORDS SUMMARY | 2023-06-01 05:54 | External Medical Summary | Summary of Care ---
Author Name Unknown Organization [place] [address] Care Team Providers Care Crate Icer Name Role Phone Kevin Whiteside DO Primary Care Provider Encounter Details Date Type Department Care Team Description 12/25/2018 Orders Only Family Practice [facility] [address] [place] [address] Kevin Whiteside DO [address] [facility] [place] [address] Allergies Active Allergy Reactions Severity [...] Each 5 08/01/2018 Active ergocalciferol (VITAMIN D2,DRISDOL,) 53947 UNIT CapsuleIndications: Vitamin D deficiency Take 1 [...] Office Visit Sleep Disorders Paige Patel MD [address] [place] [address] [place] [address] [phone] 01/11/2019 Office Visit Sleep Disorders Celsa Tafoya CRNP [address] [place] [phone] 01/12/2019 Office Visit Cardiology Marjorie Powell PA-C [address] [place] [address] [phone] 01/17/2019 Pharmacy Pharmacy [facility] Jeramie [address] [place] [address] 01/24/2019 Office Visit Nephrology Gia White MD 21 [facility] [place] [address] 02/26/2019 Office Visit Family Medicine Kevin Whiteside DO [address] [place] [address] [phone] 03/14/2019 Office Visit Cardiology Rey Woodall MD [address] [place] [address] [phone] 05/04/2019 Office Visit Sleep Disorders Celsa Tafoya CRNP [address] [place] [address] [phone] Health Maintenance Due Date Last Done Comments DIABETES-EYE EXAM 02/24/2011 02/24/2010 (Do ne elsewhere), 12/18/2009, 02/18/2008 (Done elsewhere) PAP SMEAR-EVERY 3 YRS,AGES 21-65 05/11/2016 05/11/2013, 03/01/2008, 10/19/2006, Additional history exists CKD PHOS USE SMARTSET 38940 12/29/2018 04/0 01/2018, 08/26/2009, 08/25/2009, Additional history exists DIABETES-FOOT EXAM 12/29/2018 12/29/2017, 0 10/21/2016, 12/11/2015, Additional history exists DIABETES-HGBA1C EVERY 6 MONTHS 03/27/2019 09/27/2018, 05/01/2018, 12/29/2017, Additional history exists Yearly B-12 05/16/2019 05/16/2018 CKD GFR USE SMARTSET 49161 06/20/201912/18, 12/08/2018, 11/06/2018, Additional history exists BREAST CANCER SCREENING DISCUSSION YEARLY AGES 40-75 06/23/2019 06/23/2018, 05/09/2015, 07/12/2014, Additional history exists CKD HGB USE SMARTSET 34372 12/09/201912/08, 06/06/2018, 06/05/2018, Additional history exists PNEUMOCOCCAL [...] encounter Results * CHEMISTRY-OUTSIDE (12/23/2018) CREATININE-OUTSIDE LAB 2.52(A) 0.6 - 1.2 MG/DL OU TSIDE LAB (SEE SCANNED REPORT) GFR ESTIMATED-OUTSIDE LAB 19.6 OU TSIDE LAB (SEE SCANNED REPORT) POTASSIUM-OUTSIDE LAB 3.9 3.5 - 5.1 MMOL/L OU TSIDE LAB (SEE SCANNED REPORT) GLUCOSE-OUTSIDE LAB 233(A) 70 - 99 MG/DL OUTSIDE LAB (SEE [...] LAB OUTSIDE LAB (SEE SCANNED REPORT) HEMOGLOBIN, [id number] LAB OUTSIDE LAB (SEE SCANNED REPORT) PHOSPHORUS-OUTSIDE LAB OUTSI DE LAB (SEE SCANNED REPORT) PTH-OUTSIDE LAB OUTSIDE LAB (SEE SCANNED REPORT) MICROALBUMIN RATIO-OUTSIDE LAB OUTSIDE LAB (SEE SCANNED REPORT) PROTEIN, UA-OUTSIDE LAB NEG NEG OUTS SUSAN LAB (SEE SCANNED REPORT) HEMOGLOBIN-OUTSIDE LAB OUTSI DE LAB (SEE SCANNED REPORT) CHEMISTRY COMMENT-OUTSIDE LAB Comment:ED LABS- CMP, CK, CKMB, TROP, NT PRO BNP, LIPASE, UA OUTSIDE LAB (SEE SCANNED REPORT) Narrative Performed At Performing Organization Address City/State/Zipcod e Phone Number OUTSIDE LAB (SEE SCANNED REPORT) documented in this encounter Advance Directives Patient has advance care planning documents, and code status on file. For more information, please contact: [place] [phone] Latest Code Status on File Code Status [...]
--- OUTSIDE RECORDS SUMMARY | 2023-06-01 05:54 | External Medical Summary | Summary of Care ---
Author Name Unknown Organization [place] [address] Care Team Providers Care Rn Mental Health Name Role Phone Kevin Whiteside DO Primary Care Provider Encounter Details Date Type Department Care Team Description 12/26/2018 Orders Only Family Practice [facility] [address] [place] [address] Kevin [facility]ide DO [address] [facility] [place] [address] Allergies Active Allergy Reactions Severity [...] Each 5 08/01/2018 Active ergocalciferol (VITAMIN D2,DRISDOL,) 81439 UNIT CapsuleIndications: Vitamin D deficiency Take 1 [...] Celsa Tafoya CRNP [address] [place] [address] [phone] 01/12/2019 Office Visit Cardiology Marjorie Powell PA-C [address] [place] [address] 01/17/2019 Pharmacy Pharmacy [facility] [address] [place] [address] 01/24/2019 Office Visit Nephrology Gia White MD 21 [facility] [place] [address] [phone] 02/26/2019 Office Visit Family Medicine Kevin Whiteside DO [address] [place] [address] 03/14/2019 Office Visit Cardiology Rey Woodall MD [address] [place] [phone] 05/04/2019 Office Visit Sleep Disorders Celsa Tafoya CRNP [address] [place] [address] [phone] Health Maintenance Due Date Last Done Comments DIABETES-EYE EXAM 02/24/2011 02/24/2010 (Do ne elsewhere), 12/18/2009, 02/18/2008 (Done elsewhere) PAP SMEAR-EVERY 3 YRS,AGES 21-65 05/11/2016 05/11/2013, 03/01/2008, 10/19/2006, Additional history exists CKD PHOS USE SMARTSET 40702 12/29/2018 04/0 01/2018, 08/26/2009, 08/25/2009, Additional history exists DIABETES-FOOT EXAM 12/29/2018 12/29/2017, 0 10/21/2016, 12/11/2015, Additional history exists DIABETES-HGBA1C EVERY 6 MONTHS 03/27/2019 09/27/2018, 05/01/2018, 12/29/2017, Additional history exists Yearly B-12 05/16/2019 05/16/2018 BREAST CANCER SCREENING DISCUSSION YEARLY AGES 40-75 06/23/2019 06/23/2018, 05/09/2015, 07/12/2014, Additional history exists CKD GFR USE SMARTSET 88641 06/25/201912/23, 12/18/2018, 12/08/2018, Additional history exists CKD HGB USE SMARTSET 66952 12/24/201912/23, 12/08/2018, 06/06/2018, Additional history exists PNEUMOCOCCAL [...] Priority Date/Time Associated Diagnosis Comments CHEMISTRY-OUTSIDE Routine 12/14/2018 documented in this encounter Results * CHEMISTRY-OUTSIDE (12/14/2018) CREATININE-OUTSIDE LAB 1.76(A) 0.6 - 1.2 MG/DL OU TSIDE LAB (SEE SCANNED REPORT) GFR ESTIMATED-OUTSIDE LAB 30.2 ML/MIN OU TSIDE LAB (SEE SCANNED REPORT) POTASSIUM-OUTSIDE LAB 3.2(A) 3.5 - 5.1 MMOL/L OU TSIDE LAB (SEE SCANNED REPORT) GLUCOSE-OUTSIDE LAB 148(A) 70 - 99 MG/DL OUTSIDE LAB (SEE [...] LAB OUTSIDE LAB (SEE SCANNED REPORT) HEMOGLOBIN, [id number] LAB OUTSIDE LAB (SEE SCANNED REPORT) PHOSPHORUS-OUTSIDE LAB OUTSI DE LAB (SEE SCANNED REPORT) PTH-OUTSIDE LAB OUTSIDE LAB (SEE SCANNED REPORT) MICROALBUMIN RATIO-OUTSIDE LAB OUTSIDE LAB (SEE SCANNED REPORT) PROTEIN, UA-OUTSIDE LAB OUTS SUSAN LAB (SEE SCANNED REPORT) HEMOGLOBIN-OUTSIDE LAB OUTSI DE LAB (SEE SCANNED REPORT) CHEMISTRY COMMENT-OUTSIDE LAB Comment:SEE SCAN: DIS [facility]: BMP, MG OUTSIDE LAB (SEE SCANNED REPORT) Narrative Performed At Performing Organization Address City/State/Zipcod e Phone Number OUTSIDE LAB (SEE SCANNED REPORT) documented in this encounter Advance Directives Patient has advance care planning documents, and code status on file. For more information, please contact: [place] [phone] Latest Code Status on File Code Status [...]
--- OUTSIDE RECORDS SUMMARY | 2023-06-01 05:54 | External Medical Summary | Summary of Care ---
Author Name Unknown Organization [place] [address] Care Team Providers Care Lawn Sprinkler Servicer Name Role Phone Kevin Whiteside Primary Care Provider Encounter Details Date Type Department Care Team Description 12/12/2018 Scan Encounter Unspecified Department <No scans attached> [...] Each 5 08/01/2018 Active ergocalciferol (VITAMIN D2,DRISDOL,) 37375 UNIT CapsuleIndications: Vitamin D deficiency Take 1 [...] mouth daily. 31 Tab 5 11/02/2018 Active DULoxetine (CYMBALTA) 30 MG CPEPIndications:Fib romyalgia,Moderate episode of recurrent major depressive disorder (HCC),Primary osteoarthritis of both knees Take 1 Cap by mouth daily. 90 Cap 1 11/14/2018 Active Insulin Degludec (TRESIBA FLEXTOUCH) 200 UNIT/ML [...] 10/14/2014 Overview: ICD-10 update of inactive term [place] filter in place 08/19/2014 History of [...] Encounters Date Type Specialty Care Team Description 12/18/2018 Office Visit Family Medicine Kevin Whiteside DO [address] [place] [address] 12/25/2018 Office Visit Sleep Disorders Paige Patel MD [address] [place] [address] 01/11/2019 Office Visit Sleep Disorders Celsa Tafoya CRNP [address] [place] [address] 01/12/2019 Office Visit Cardiology Marjorie Powell PA-C [address] [place] [address] 01/17/2019 Pharmacy Pharmacy [facility] [address] [place] [address] 01/24/2019 Office Visit Nephrology Gia White MD [address] [place] [address] 02/26/2019 Office Visit Family Medicine Kevin Whiteside DO [address] [place] [address] 03/14/2019 Office Visit Cardiology Rey Woodall MD [address] [place] [address] 05/04/2019 Office Visit Sleep Disorders Celsa Tafoya CRNP [address] [place] [address] Health Maintenance Due Date Last Done Comments DIABETES-EYE EXAM 02/24/2011 02/24/2010 (Do ne elsewhere), 12/18/2009, 02/18/2008 (Done elsewhere) PAP SMEAR-EVERY 3 YRS,AGES 21-65 05/11/2016 05/11/2013, 03/01/2008, 10/19/2006, Additional history exists CKD PHOS USE SMARTSET 73095 12/29/2018 04/0 01/2018, 08/26/2009, 08/25/2009, Additional history exists DIABETES-FOOT EXAM 12/29/2018 12/29/2017, 0 10/21/2016, 12/11/2015, Additional history exists DIABETES-HGBA1C EVERY 6 MONTHS 03/27/2019 09/27/2018, 05/01/2018, 12/29/2017, Additional history exists Yearly B-12 05/16/2019 05/16/2018 CKD GFR USE SMARTSET 89332 06/10/201912/08, 11/06/2018, 10/30/2018, Additional history exists BREAST CANCER SCREENING DISCUSSION YEARLY AGES 40-75 06/23/2019 06/23/2018, 05/09/2015, 07/12/2014, Additional history exists CKD HGB USE SMARTSET 22511 12/09/201912/08, 06/06/2018, 06/05/2018, Additional history exists PNEUMOCOCCAL [...] For more information, please contact: [place] [phone] Latest Code Status on File Code Status [...]
--- OUTSIDE RECORDS SUMMARY | 2023-06-01 05:54 | External Medical Summary | Summary of Care ---
Author Name Unknown Organization [place] [address] Care Team Providers Care Band Top Maker Name Role Phone Kevin Whiteside Primary Care Provider Encounter Details Date Type Department Care Team Description 12/15/2018 Grinder LapSurgical Oncologist Medicine [address] [address] Frances Nicholson RN [address] [place] [address] Acute diastolic congestive heart failure (HCC)* Allergies Active Allergy Reactions Severity Noted Date Comments Heparin 09/04/2009 Heparin Induced Thrombocytopenia Empagliflozin Other (Please comment) Medium 05/17/2018 3 yeast infections in 6 weeks after starting Morphine And Related 09/16/1997 Hallucinations Tetanus Toxoid Other (Please comment) 06/15/2011 Passed out documented as of this encounter (statuses as of 12/15/2018) Medications Medication Sig Dispensed Refills Start Date [...] 5 08/01/20 18 Active ergocalciferol (VITAMIN D2,DRISDOL,) 32502 UNIT CapsuleIndications :Vitamin D deficiency Take 1 [...] daily. 31 Tab 5 11/02/19 19 Active DULoxetine (CYMBALTA) 30 MG CPEPIndications:Fi bromyalgia,Moderat e episode of recurrent major depressive disorder (HCC),Primary osteoarthritis of both knees Take 1 Cap by mouth daily. 90 Cap 1 11/14/19 19 Active Insulin Degludec (TRESIBA FLEXTOUCH) 200 [...] mouth 3 times a day. 0 Active Gabapentin (NEURONTIN) 600 MG TabletIndications: Uncontrolled type 2 diabetes mellitus with stage 3 chronic kidney disease, with long-term current use of insulin (HCC) Take 1 Tab by mouth 3 times a day. 90 Tab 11 09/04/20 18 019 Discontinued documented as of this encounter (statuses as of 12/15/2018) Active Problems Problem Noted Date Impetigo 09/27/2018 [...] as of this encounter (statuses as of 12/15/2018) Resolved Problems Problem Noted Date Resolved Date [...] as of this encounter (statuses as of 12/15/2018) Immunizations Name Dates Previously Given Next Due [...] Progress Notes * Frances Nicholson RN - 12/15/2018 11:09 AM EDT PMH: DM, HTN, SOA with CPAP, history of PE, frank filter in place, dyslipidemia-statin intol, GERD, Fibromyalgia, depression/anxiety New-acute diastolic HF and ELSIE sent from PCP office abnormal labs and shortness of breath. x-ray concerning for atypical pneumonia 06/06/18-[facility] admit Acute respiratory failure with hypoxia and [...] weight 343 on d/c 06/10/18 d/c from [facility] new on Lasix, potassium and Mg Stopped Metformin and HCTZ 12/08 [facility] admit acute decompensated diastolic HF Consulted Cardiology and nephrology 12/14/18 D/c to home Added Spirolactone Increased Lasix to 80 mg BID (4-6 hours apart) Weekly BMP x 4 weights and home BP cuff D/c weight 351.2 12/18-Dr Whiteside 01/12-cards 01/24-neph Case Management Assessment/RSOA 12/14 D/C form [facility] Is this call for a hospital, care home or rehab facility discharge to home? Yes 12/14/18 [facility] S: Reports:reports that she feels ok, better, but still seems tired/SOB if up moving around for toolong. Hasn't picked up new meds yet, planning to do that today. Weight, she thinks, is 351 as scaleonly goes to 350. BS 207 this morning. Has C-PAP with O2, but not using O2 during day. Weight gain: pt's home sacle only goes to 350, pt reporting weight of 351? Increased edema: reporting pedal edema Chest pain denies Increased shortness of breath: denies cough denies dyspnea with daily activities oxygen Has Home O2 for use with C-PAP conserving device (C-PAP / BiPAP) Chills / Sweats / Fever: denies chills/sweats and denies fever Fall: denies any falls since last Care Management encounter Appetite: denies nausea, vomiting, burning, decreased appetite Bowel: denies problems Bladder: denies problems Medications: Has not yet obtained new meds and takes all medications as prescribed. Chronic Pain: ongoing neuropathy in feet and ongoing back pain Does Patient have Type 2 DM ? Yes. Does this patient take sulfonylureas and/or basal insulin? Yes. 1. Do you know what the symptoms of hypoglycemia are? yes 2. How often can you tell by your symptoms if your blood sugar is low? Always 3. In a typical week, how many times will your blood sugar go below 70 mg/dL? Never O: Phone visit for ROSA 12/14/18 D/C from [facility]. Medications: meds reconciled A: Patient Centered Prioritized Goals: Pt will verbalize s/s needing reported to Dr/NORMA. Pt will be set up for [facility] daily weights and BPs. Pt will keep appts as scheduled Development of self - management action plan [...] to communicate, understand instructions, process information. P: Grinder Lap Interventions: Pt made aware of upcoming appt-dates and times Discussed [facility] scale and BP cuff-pt agreeable-requested Contacted nephrology as pt was to have weekly BMP x4-ordered pend and signed, pt aware. Instructed pt to obtain new meds-discussed use of Aldactone and increaed Lasix to BID and need ot take dose 4-6 hours apart Discussed reason as to why Gabapentin decreased as causes swelling Instructed in fluid restriction-encouraged to adhere to 6 cups of fluid/day Instructed to adhere to low sodium diet-avoid foods with sodium content of 300 mg or higher per serving Instructed in HF symptom monitoring: -Weigh self daily in am, post-void and record Reinforce Self Management Action Plan established at previous visit -Report the following: ->3 lb weight gain in one day or 5 lbs in a week to PCP -increased edema in feet, abdomen or hands -increased SOB and cough, especially if at night -increased fatigue or vertigo Reinforced safety education / fall prevention Encouraged to avoid concentrated sweets and to report BS >250 x 24 hours PCP Notified of enrollment in CM/HM program: Yes SNP Member? No Re-evaluation of plan of care and progress towards goals achievement:agrees to scale and BP cuff. Aware of s/s needing reported. Aware of med changes/additions. Aware of PCP apts and labs Plan to call patient next week to reassess and update plan of care, instructed to call Case Manageror Primary Care Provider with change in symptoms or as needed before next follow-up, verbalizes understanding and agrees with plan. Frances Nicholson RN Outpatient Grinder Lap documented in this encounter Plan of Treatment Upcoming Encounters Date Type Specialty Care Team Description 12/18/2018 [facility] [place] [address] 12/25/2018 Office Visit Sleep Disorders [facility]ige Patel MD [address] [facility] [place] [address] 01/11/2019 Office Visit Sleep Disorders Celsa Tafoya CRNP [facility] [place] [address] 01/12/2019 Office Visit Cardiology Marjorie Powell PA-C [facility] [place] [address] 01/17/2019 Pharmacy Pharmacy [facility] [address] [place] [address] 01/24/2019 Office Visit Nephrology Gia White MD [address] [place] [address] 02/26/2019 Office Visit Family Medicine Kevin Whiteside DO [address] [place] [address] 03/14/2019 Office Visit Cardiology [facility] [place] [address] [phone] 05/04/2019 Office Visit Sleep Disorders Celsa [facility] CRNP [address] [facility] [place] [address] Health Maintenance Due Date Last Done Comments DIABETES-EYE EXAM 02/24/2011 02/24/2010 (Do ne elsewhere), 12/18/2009, 02/18/2008 (Done elsewhere) PAP SMEAR-EVERY 3 YRS,AGES 21-65 05/11/2016 05/11/2013, 03/01/2008, 10/19/2006, Additional history exists CKD PHOS USE SMARTSET 86101 12/29/2018 04/0 01/2018, 08/26/2009, 08/25/2009, Additional history exists DIABETES-FOOT EXAM 12/29/2018 12/29/2017, 0 10/21/2016, 12/11/2015, Additional history exists DIABETES-HGBA1C EVERY 6 MONTHS 03/27/2019 09/27/2018, 05/01/2018, 12/29/2017, Additional history exists Yearly B-12 05/16/2019 05/16/2018 CKD GFR USE SMARTSET 64029 06/10/201912/08, 11/06/2018, 10/30/2018, Additional history exists BREAST CANCER SCREENING DISCUSSION YEARLY AGES 40-75 06/23/2019 06/23/2018, 05/09/2015, 07/12/2014, Additional history exists CKD HGB USE SMARTSET 31743 12/09/201912/08, 06/06/2018, 06/05/2018, Additional history exists PNEUMOCOCCAL [...] of this encounter Visit Diagnoses Diagnosis Acute diastolic congestive heart failure (HCC)- Primary Acute diastolic heart failure documented in this encounter Advance Directives Patient has advance care planning documents, and code status on file. For more information, please contact: [place] [phone] Latest Code Status on File Code Status [...]
--- OUTSIDE RECORDS SUMMARY | 2023-06-01 05:55 | External Medical Summary | Summary of Care ---
Author Name Unknown Organization [place] [address] Care Team Providers Care Fruit Loader Machine Operator Name Role Phone Kevin Whiteside Primary Care Provider Reason for Visit * Reason Comments Order Request Encounter Details Date Type Department Care Team Description 12/15/2018 Telephone Internal Medicine [address] [address] Frances Nicholson RN [address] [place] [address] Order Request Allergies Active Allergy Reactions [...] Each 5 08/01/2018 Active ergocalciferol (VITAMIN D2,DRISDOL,) 48989 UNIT CapsuleIndications: Vitamin D deficiency Take 1 [...] mouth 3 times a day. 0 Active documented as [...] 10/14/2014 Overview: ICD-10 update of inactive term [place] filter in place 08/19/2014 History of pulmonary [...] Telephone Encounter - Violet Meier LPN - 12/15/2018 12:43 PM EDT Standing weekly BMP order signed. * Telephone Encounter - Frances Nicholson RN - 12/15/2018 11:37 AM EDT Pt was seen by dr Jose while inpt at [facility] Pt was discharged on 12/14 Dr Jose recommended that pt have BMP weekly x4 Please place orders Pt is aware Frances Nicholson RN, [facility] loss prevention operations manager [phone] documented in this encounter Plan of Treatment Upcoming Encounters Date Type Specialty Care Team Description 12/18/2018 Office Visit Family Medicine Kevin Whiteside DO [address] [place] [address] 12/25/2018 Office Visit Sleep Disorders Paige Patel MD [address] [place], [place] [address] [address] 01/11/2019 Office Visit Sleep Disorders Celsa Tafoya CRNP [address] [place] [address] 01/12/2019 Office Visit Cardiology Marjorie Powell, EVIN [address] [facility] [place] [address] [phone] 01/17/2019 Pharmacy Pharmacy [facility] [place] [address] [place] [address] 01/24/2019 Office Visit Nephrology Gia White MD [address] [facility] [place] [address] 02/26/2019 Office Visit Family Medicine Kevin Whiteside DO [address] [place] [address] 03/14/2019 Office Visit Cardiology Rey Woodall MD [address] [facility] [place] [phone] 05/04/2019 Office Visit Sleep Disorders Celsa Tafoya CRNP [address] [facility] [place] [phone] Scheduled Tests Name Priority Associated Diagnoses Order S chedule BASIC METAB PANEL, BMP Routine DM type 2 causing CKD stage 3 (HCC) Every Week for 4 Occurrences starting 12/15/2018 until 02/14/2019 Health Maintenance Due Date Last Done Comments DIABETES-EYE EXAM 02/24/2011 02/24/2010 (Do ne elsewhere), 12/18/2009, 02/18/2008 (Done elsewhere) PAP SMEAR-EVERY 3 YRS,AGES 21-65 05/11/2016 05/11/2013, 03/01/2008, 10/19/2006, Additional history exists CKD PHOS USE SMARTSET 71106 12/29/2018 04/01/2018, 08/26/2009, 08/25/2009, Additional history exists DIABETES-FOOT EXAM 12/29/2018 12/29/2017, 0 10/21/2016, 12/11/2015, Additional history exists DIABETES-HGBA1C EVERY 6 MONTHS 03/27/2019 09/27/2018, 05/01/2018, 12/29/2017, Additional history exists Yearly B-12 05/16/2019 05/16/2018 CKD GFR USE SMARTSET 02299 06/10/201912/08, 11/06/2018, 10/30/2018, Additional history exists BREAST CANCER SCREENING DISCUSSION YEARLY AGES 40-75 06/23/2019 06/23/2018, 05/09/2015, 07/12/2014, Additional history exists CKD HGB USE SMARTSET 21863 12/09/201912/08, 06/06/2018, 06/05/2018, Additional history exists PNEUMOCOCCAL [...] encounter Visit Diagnoses Diagnosis DM type 2 causing CKD stage 3 (HCC)- Primary Type II or unspecified type diabetes mellitus with renal manifestations, not stated as uncontrolled documented in this encounter Advance Directives Patient has advance care planning documents, and code status on file. For more information, please contact: [place] [phone] Latest Code Status on File Code Status [...]
--- OUTSIDE RECORDS SUMMARY | 2023-06-01 05:55 | External Medical Summary | Summary of Care ---
Author Name Unknown Organization [place] [address] Care Team Providers Care Hydroelectric Plant Structural Engineer Name Role Phone Kevin Whiteside Primary Care Provider Reason for Visit * Reason Comments Dosage Adjustment In Person (Anticoag Cl inic) Diabetes Follow-Up Encounter Details Date Type Department Care Team Description 11/22/2018 [facility] [facility] [address] [facility] [address] Uncontrolled type 2 diabetes mellitus with stage [...] as of this encounter (statuses as of 11/22/2018) Medications Medication Sig Dispensed Refills Start Date [...] 5 08/01/20 18 Active ergocalciferol (VITAMIN D2,DRISDOL,) 01249 UNIT CapsuleIndications :Vitamin D deficiency Take 1 [...] Box Dosing Unit 3 08/30/20 18 Active Gabapentin (NEURONTIN) 600 MG TabletIndications: Uncontrolled type 2 diabetes mellitus with stage 3 chronic kidney disease, with long-term current use of insulin (HCC) Take 1 Tab by mouth 3 times a day. 90 Tab 11 09/04/20 18 Active clonazePAM (KLONOPIN) 0.5 MG TabletIndications: [...] 9 mL 5 11/22/19 19 Active Insulin Degludec (TRESIBA FLEXTOUCH) 200 UNIT/ML SOPN Inject up to 160 units subcutaneously once daily as directed 9 mL 5 11/20/19 19 019 Discontinued documented as of this encounter (statuses as of 11/22/2018) Active Problems Problem Noted Date Impetigo 09/27/2018 [...] as of this encounter (statuses as of 11/22/2018) Resolved Problems Problem Noted Date Resolved Date [...] as of this encounter (statuses as of 11/22/2018) Immunizations Name Dates Previously Given Next Due [...] Barton, [facility] - 11/22/2018 10:17 AM EST Medication Therapy [...] currently tests blood glucose 3 time(s) daily Pre am Post am Pre [...] Cardiac Dyslipidemia Chronic diastolic congestive heart failure ([facility]) Mental Health ELLIE (generalized anxiety disorder) Mild episode of recurrent major depressive disorder ([facility]) Endocrine Postsurgical hypothyroidism Type 2 diabetes mellitus with hemoglobin A1c goal of 7.0%-8.0% ([facility]) Uncontrolled type 2 diabetes mellitus with stage 3 chronic kidney disease, with long-term current use of insulin ([facility]) Pulmonary Nocturnal hypoxemia ELISSA (obstructive sleep apnea) History of pulmonary embolus (PE) Vascular Venous insufficiency [place] filter in place Nephrology HTN, goal below 130/80 General Statin intolerance Abnormality of gait Controlled substance agreement signed Neurology Restless legs syndrome Gastrointestinal Gastroesophageal reflux disease with esophagitis Body mass index (BMI) of 50.0 to 59.9 in adult ([facility]) Dermatology Impetigo Review of patient's allergies [...] Syringe Dosing Unit 5 ergocalciferol (VITAMIN D2,DRISDOL,) 03435 UNIT Capsule Take 1 Cap by mouth [...] daily Objective: The 10-year ASCVD risk score ([place] DC Jr., et al., 2013) is: 11.6% Values [...] 12:43P 12/29/17 11.6* FINAL MICROALBUMIN RATIO(mg/g creat) [place] Dt/Tm Resulted Value Status 05/01/18 9:13A 05/01/18 [...] week(s) Next Office Visit: 01/17/2019 [facility] Clinical Pharmacist Medication Therapy Disease Management 11/22/2018, 10:17 AM documented in this encounter Plan of Treatment Upcoming Encounters Date Type Specialty Care Team Description 12/25/2018 Office Visit Sleep Disorders Paige Patel MD [address] [facility] [place] [address] [phone] 01/11/2019 Office Visit Sleep Disorders Celsa Tafoya CRNP [address] [place] [address] 01/17/2019 Pharmacy Pharmacy [facility] [address] [place] [phone] 01/24/2019 Office Visit Nephrology Gia White MD [address] [facility] [place] [address] [phone] 02/26/2019 Office Visit Family Medicine Kevin Whiteside DO [address] [place] [address] 03/14/2019 Office Visit Cardiology Rey Woodall MD [address] [place] [address] 05/04/2019 Office Visit Sleep Disorders Celsa Tafoya CRNP [address] [place] [address] [phone] Health Maintenance Due Date Last Done Comments DIABETES-EYE EXAM 02/24/2011 02/24/2010 (Do ne elsewhere), 12/18/2009, 02/18/2008 (Done elsewhere) PAP SMEAR-EVERY 3 YRS,AGES 21-65 05/11/2016 05/11/2013, 03/01/2008, 10/19/2006, Additional history exists CKD PHOS USE SMARTSET 19929 12/29/2018 04/0 01/2018, 08/26/2009, 08/25/2009, Additional history exists DIABETES-FOOT EXAM 12/29/2018 12/29/2017, 0 10/21/2016, 12/11/2015, Additional history exists DIABETES-HGBA1C EVERY 6 MONTHS 03/27/2019 09/27/2018, 05/01/2018, 12/29/2017, Additional history exists CKD GFR USE SMARTSET 18744 05/06/201911/06, 10/30/2018, 10/26/2018, Additional history exists Yearly B-12 05/16/2019 05/16/2018 CKD HGB USE SMARTSET 70740 06/06/201906/06, 06/05/2018, 12/26/2017, Additional history exists BREAST CANCER SCREENING DISCUSSION YEARLY AGES 40-75 06/23/2019 06/23/2018, 05/09/2015, 07/12/2014, Additional history exists PNEUMOCOCCAL 19-64 MEDIUM RISK [...] For more information, please contact: [place] [phone] Latest Code Status on File Code Status [...]
--- OUTSIDE RECORDS SUMMARY | 2023-06-01 05:55 | External Medical Summary | Summary of Care ---
Author Name Unknown Organization [place] [address] Care Team Providers Care Pantry Goods Worker Name Role Phone Kevin Whiteside DO Primary Care Provider Reason for Referral * Evaluate & Treat - Unlimited Visits (Within 10 days (routine)) Status Reason Specialty Diagnoses / Procedures Referred By Contact Referred To Contact Pending Review Specialty Services Required Physical Therapy Diagnoses Primary osteoarthritis of both knees Lumbar radiculopathy Kevin Whiteside DO [address] [place] [address] Reason for Visit * Reason Comments Pain all over joint pain, and depression Encounter Details Date Type Department Care Team Description 11/14/2018 Office Visit Family Practice [facility] [address] [place] [address] Kevin Whiteside DO [address] [place] [address] [phone] Uncontrolled type 2 diabetes mellitus with stage 3 chronic kidney disease, with long-term current use of insulin ([facility])*; Body mass index (BMI) of 50.0 to 59.9 in adult (HCC); Fibromyalgia; Moderate episode of recurrent major depressive disorder (HCC); Primary osteoarthritis of both knees; Lumbar radiculopathy; Mild episode of recurrent major depressive disorder ([facility]) Allergies Active Allergy Reactions Severity Noted Date Comments Heparin 09/04/2009 Heparin Induced Thrombocytopenia Empagliflozin Other (Please comment) Medium 05/17/2018 3 yeast infections in 6 weeks after starting Morphine And Related 09/16/1997 Hallucinations Tetanus Toxoid Other (Please comment) 06/15/2011 Passed out documented as of this encounter (statuses as of 11/14/2018) Medications Medication Sig Dispensed Refills Start Date [...] SPASM 90 Tab 2 8 Active Insulin Degludec (TRESIBA FLEXTOUCH) 200 UNIT/ML SOPN Inject up to 160 units daily as directed 10 Box Dosing Unit 5 8 Active Insulin Pen Needle (BD [...] at bedtime. 90 Tab 4 8 Active metoprolol tartrate (LOPRESSOR) 25 MG TabletIndications:H TN, goal below 130/80,Acute diastolic congestive heart failure (HCC),Body mass index (BMI) of 50.0 to 59.9 in adult (HCC),Hypoxemia,ELISSA (obstructive sleep apnea),HTN, goal below 140/80 Take 2 Tabs by mouth 2 times a day. 360 Tab 3 8 Active Glucose Blood (ONETOUCH ULTRA BLUE) STRP Check sugars 3-4 times daily 360 Strip 5 8 Active ONETOUCH DELICA LANCETS 33G MISC Check blood sugars 3-4 times daily 180 Each 5 8 Active ergocalciferol (VITAMIN D2,DRISDOL,) 12050 UNIT CapsuleIndications: Vitamin D deficiency Take 1 Cap by mouth once a week. 13 Cap 1 8 Active insulin aspart (NOVOLOG FLEXPEN) 100 [...] 400 Box Dosing Unit 3 8 Active Gabapentin (NEURONTIN) 600 MG TabletIndications:U ncontrolled type 2 diabetes mellitus with stage 3 chronic kidney disease, with long-term current use of insulin (HCC) Take 1 Tab by mouth 3 times a day. 90 Tab 11 8 Active clonazePAM (KLONOPIN) 0.5 MG TabletIndications:A nxiety state TAKE ONE TABLET BY MOUTH TWICE DAILY 180 Tab 3 8 Active furosemide (LASIX) 80 MG TabletIndications:A cute diastolic congestive heart failure (HCC) Take 1 Tab by mouth daily. Take an additional tablet as directed or needed for fluid retention 60 Tab 3 9 Active lisinopril (PRINIVIL) 2.5 MG TabletIndications:H TN, goal below 140/80,Acute diastolic congestive heart failure (HCC),Body mass index (BMI) of 50.0 to 59.9 in adult (HCC),Hypoxemia,ELISSA (obstructive sleep apnea),HTN, goal below 130/80 Take 1 Tab by mouth daily. 31 Tab 5 9 Active DULoxetine (CYMBALTA) 30 MG CPEPIndications:Fib romyalgia,Moderate episode of recurrent major depressive disorder (HCC),Primary osteoarthritis of both knees Take 1 Cap by mouth daily. 90 Cap 1 9 Active sertraline (ZOLOFT) 100 MG TabletIndications:D epression with anxiety TAKE ONE AND ONE-HALF TABLETS BY MOUTH DAILY 135 Tab 1 8 11/14/19 19 Discontinued documented as of this encounter (statuses as of 11/14/2018) Active Problems Problem Noted Date Impetigo 09/27/2018 [...] 10/14/2014 Overview: ICD-10 update of inactive term Madison filter in place 08/19/2014 History of pulmonary embolus (PE) 2013 Statin intolerance 07/16/2014 HTN, goal below 130/80 02/22/2014 Venous insufficiency 02/07/2013 ELISSA (obstructive sleep apnea) 09/16/2011 Overview: CPAP 11 cwp Mild, AHI 11.3 but with significant nocturnal hypoxemia Dicks Nocturnal hypoxemia 07/22/2011 Overview: Nocturnal ox 2 LPM 07/20/11 -- mean 84%, low 76%, time <89% 6:21 hours, TINY [facility] Postsurgical hypothyroidism 06/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 Primary localized osteoarthrosis, lower leg 07/04/2008 documented as of this encounter (statuses as of 11/14/2018) Resolved Problems Problem Noted Date Resolved Date [...] as of this encounter (statuses as of 11/14/2018) Immunizations Name Dates Previously Given Next Due [...] Vital Sign Reading Time Taken Blood Pressure 116/68 11/14/2018 8:22 AM EST Pulse 90 11/14/2018 8:22 AM EST Temperature 36.7 C (98 F) 11/14/2018 8:2 2 AM EST Respiratory Rate 18 11/14/2018 8:22 AM EST Oxygen Saturation 95% 11/14/2018 8:2 2 AM EST Inhaled Oxygen Concentration - - Weight 157.4 kg (347 lb) 11/14/2018 8:2 2 AM EST Height - - Body Mass Index 59.17 11/14/2018 8:22 AM EST documented in this encounter Progress Notes * Kevin Whiteside, DO - 11/14/2018 8:31 AM EST Nursing Notes: Izabela Crump, CHUYITA 11/14/18 0827 Signed The patient has been properly identified by confirmation of name and date of . Chief Complaint Patient presents with Pain all over joint pain, and depression ASSESSMENT/PLAN: 1. Uncontrolled type 2 diabetes mellitus with stage 3 chronic kidney disease, with long-term current use of insulin ([facility]) Continue to manage and monitor, states blood sugar has been improving lately, dietary compliance isvariable. Will get [facility] pharmacy to see here in [facility] if possible to improve compliance. 2. Body mass index (BMI) of 50.0 to 59.9 in adult ([facility]) Provided education. Was seen by weight management in already. 3. Fibromyalgia Ongoing fibromyalgia and depression. We will switch over from sertraline to duloxetine 30 mg and increase to 60 mg when able. - DULoxetine (CYMBALTA) 30 MG CPEP; Take 1 Cap by mouth daily. Dispense: 90 Cap; Refill: 1 4. Moderate episode of recurrent major depressive disorder (HCC) As noted above. - DULoxetine (CYMBALTA) 30 MG CPEP; Take 1 Cap by mouth daily. Dispense: 90 Cap; Refill: 1 5. Primary osteoarthritis of both knees Hoping that we get improvement in pain with Cymbalta. Also will re-place physical therapy referral for ongoing pain in the knees and back. - DULoxetine (CYMBALTA) 30 MG CPEP; Take 1 Cap by mouth daily. Dispense: 90 Cap; Refill: 1 - PHYSICAL THERAPY REFERRAL OP 6. Lumbar radiculopathy Hoping that we get improvement in pain with Cymbalta. Also will re-place physical therapy referral for ongoing pain in the knees and back. - PHYSICAL THERAPY REFERRAL OP HPI: Stephanie Camp is a 63 year old female who presents for: 1. Uncontrolled type 2 diabetes mellitus with stage 3 chronic kidney disease, with long-term current use of insulin ([facility]) Patient is displayed very able dietary control of her type 2 diabetes and her hyperglycemia is resulted in stage 3 chronic kidney disease. 2. Body mass index (BMI) of 50.0 to 59.9 in adult ([facility]) Has work on weight loss over the past years somewhat unsuccessfully. 3. Fibromyalgia Ongoing fibromyalgia osteoarthritis causing pain throughout the body. - DULoxetine (CYMBALTA) 30 MG CPEP; Take 1 Cap by mouth daily. Dispense: 90 Cap; Refill: 1 4. Moderate episode of recurrent major depressive disorder (HCC) Active moderate depression without suicidal or homicidal ideation. Medication has helped but symptoms are still present. - DULoxetine (CYMBALTA) 30 MG CPEP; Take 1 Cap by mouth daily. Dispense: 90 Cap; Refill: 1 5. Primary osteoarthritis of both knees Bilateral knee pain ongoing, has had injections in the past and a right knee replacement. - DULoxetine (CYMBALTA) 30 MG CPEP; Take 1 Cap by mouth daily. Dispense: 90 Cap; Refill: 1 - PHYSICAL THERAPY REFERRAL OP 6. Lumbar radiculopathy Ongoing low back pain that is benefitting from physical therapy, however patient worried that physical therapy will see her any longer. - PHYSICAL THERAPY REFERRAL OP ROS: CONSTITUTIONAL: no significant weight loss, no fevers, no sweats HEENT: no change in vision or hearing, no congestion, no sore throat CARDIAC: no chest pain, no palpitations, no orthopnea, no AVENDAÑO, no syncope RESP: no wheezing and no SOB GI: no pain, no NVDC, no melena/hematochezia SKIN: no rashes MSK: Low back and bilateral knee pain : no dysuria or discharge NEURO: no memory loss, no numbness PSYCH: no SI/HI,+ depression PHYSICAL EXAMINATION: BP 116/68 | Pulse 90 | Temp (Src) 98 (Tympanic) | Resp 18 | Wt 347 lbs (157.398kg) | BMI 59.17 kg/m | BSA 2.67 m | SaO2 95% | LMP 03/11/2003 GENERAL: alert, healthy, no [...] clear to auscultation bilaterally. No wheezing/rales/rhonchi SKIN: Venous stasis skin changes bilaterally in the lower extremities EXTREMITIES: no joint deformities, effusion, or inflammation, no edema, no clubbing, no cyanosis, Full ROM, Pulses Intact, Strength equal bilaterally NEURO: Bilateral lower extremity neuropathy worsen the feet MSK: Left lower back and sacroiliac joint pain and bilateral knee pain with walking. Effusion on right knee. No erythema or joint warmth. 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 Nocturnal hypoxemia G47.34 ELISSA (obstructive sleep apnea) G47.33 Venous insufficiency I87.2 HTN, goal below 130/80 I10 History of pulmonary embolus (PE) Z86.711 Statin intolerance Z78.[address] Z95.828 Type 2 diabetes [...] depressive disorder ([facility]) F33.0 Impetigo L01.00 Lumbar radiculopathy M54.16 Past [...] TRACHEOSTOMY PLANNED performed by DANNY HOLDER at [facility] KNEE ARTHROSCOPY/DEBRIDEMENT 07/[address] PERMANENT GASTROSTOMY TUBE 09/06/09 GASTROSTOMY WITH CONSTUCTION GASTRIC TUBE performed by AMADOU NUNEZ at [facility] REMOVAL OF THYROID GLAND 06/15/2011 THYROIDECTOMY INCLUDING SUBSTERNAL THYROID CERVICAL APPROACH performed by DANNY HOLDER at [facility] REMOVE GALLBLADDER 09/06/09 CHOLECYSTECTOMY performed by AMADOU NUNEZ at [facility] REPAIR RECURRENT INCISIONAL HERNIA 1998 REVISION OF COLOSTOMY, SIMPLE 1998 SUTURE, LARGE INTESTINE W/COLOSTOMY 1996 perforation R colon with colostomy VENA CAVA FILTER/LIGATION/CLIP 08/19/09 Madison filter placement through the right femoral 08/19/[address] Lerma at [facility] Current Outpatient Medications Medication Sig Dispense Refill DULoxetine (CYMBALTA) 30 MG CPEP Take 1 Cap by mouth daily. 90 Cap 1 lisinopril (PRINIVIL) 2.5 MG Tablet Take 1 Tab by mouth daily. 31 Tab 5 furosemide (LASIX) 80 MG Tablet Take 1 Tab by mouth daily. Take an additional tablet as directed or needed for fluid retention 60 Tab 3 clonazePAM [...] Syringe Dosing Unit 5 ergocalciferol (VITAMIN D2,DRISDOL,) 77295 UNIT Capsule Take 1 Cap by mouth once a week. 13 Cap1 cyclobenzaprine (FLEXERIL) 10 MG Tablet TAKE ONE TABLET BY MOUTH AT BEDTIME NEEDED FOR MUSCLE SPASM 90 Tab 2 Glucose Blood (ONETOUCH ULTRA BLUE) STRP Check sugars 3-4 times daily 360 Strip 5 Insulin Degludec (TRESIBA FLEXTOUCH) 200 UNIT/ML SOPN Inject up to 160 units daily as directed 10 Box Dosing Unit 5 Insulin Pen Needle (BD PEN NEEDLE [...] (Please comment) Passed out Kevin Whiteside DO [facility] [address] [facility] [place] [address] (This note was completed using the dictation program Fluency Direct. As such, there may be misspellings, word substitutions, or other variations that should not change the essence of the clinical content of this encounter note.If there is need for further clarification, please direct questions to the provider listed above.) documented in this encounter Nursing Notes * Izabela Crump LPN - 11/14/2018 8:22 AM EST The patient has been properly identified by confirmation of name and date of . Chief Complaint Patient presents with Pain all over joint pain, and depression documented in this encounter Plan of Treatment Upcoming Encounters Date Type Specialty Care Team Description 11/14/2018 Pharmacy Pharmacy [facility] [address] [facility] [place] [address] 11/20/2018 Pharmacy Pharmacy [facility] [address] [facility] [place] [address] [phone] 12/25/2018 Office Visit Sleep Disorders Paige Patel MD [address] [place] [address] [place] [address] [phone] 01/11/2019 Office Visit Sleep Disorders Celsa Tafoya CRNP [address] [facility] [place] [address] [phone] 01/24/2019 Office Visit Nephrology Gia White MD [address] [facility] [place] [address] 02/26/2019 Office Visit Family Medicine Kevin Whiteside DO [address] [place] [address] [phone] 03/14/2019 Office Visit Cardiology Rey Woodall MD [address] [place] [address] [phone] 05/04/2019 Office Visit Sleep Disorders Celsa Tafoya CRNP [address] [place] [address] [phone] Scheduled Referrals Name Priority Associated Diagnoses Order S chedule PHYSICAL THERAPY REFERRAL OP Within 10 days (routine) Primary osteoarthritis of both knees Lumbar radiculopathy Ordered: 11/14/2018 Health Maintenance Due Date Last Done Comments DIABETES-EYE EXAM 02/24/2011 02/24/2010 (Do ne elsewhere), 12/18/2009, 02/18/2008 (Done elsewhere) PAP SMEAR-EVERY 3 YRS,AGES 21-65 05/11/2016 05/11/2013, 03/01/2008, 10/19/2006, Additional history exists CKD PHOS USE SMARTSET 31393 12/29/2018 04/0 01/2018, 08/26/2009, 08/25/2009, Additional history exists DIABETES-FOOT EXAM 12/29/2018 12/29/2017, 0 10/21/2016, 12/11/2015, Additional history exists DIABETES-HGBA1C EVERY 6 MONTHS 03/27/2019 09/27/2018, 05/01/2018, 12/29/2017, Additional history exists CKD GFR USE SMARTSET 05659 05/06/201911/06, 10/30/2018, 10/26/2018, Additional history exists Yearly B-12 05/16/2019 05/16/2018 CKD HGB USE SMARTSET 34405 06/06/201906/06, 06/05/2018, 12/26/2017, Additional history exists BREAST [...] both knees Primary localized osteoarthrosis, lower leg Lumbar radiculopathy Thoracic or lumbosacral neuritis or radiculitis, unspecified Mild episode of recurrent major depressive disorder (HCC) documented in this encounter Advance Directives Patient has advance care planning documents, and code status on file. For more information, please contact: [place] [phone] Latest Code Status on File Code Status [...]
--- OUTSIDE RECORDS SUMMARY | 2023-06-01 05:55 | External Medical Summary | Summary of Care ---
Author Name Unknown Organization [place] [address] Care Team Providers Care Divinity Professor Name Role Phone Kevin Whiteside DO Primary Care Provider Reason for Visit * Reason Comments eRx-Medication Refill Encounter Details Date Type Department Care Team Description 11/30/2018 Refill Pharmacy, [facility] [address] [facility] [address] Kevin Whiteside DO [address] [facility] [place] [address] Allergies Active Allergy Reactions Severity Noted Date Comments Heparin 09/04/2009 Heparin Induced Thrombocytopenia Empagliflozin Other (Please comment) Medium 05/17/2018 3 yeast infections in 6 weeks after starting Morphine And Related 09/16/1997 Hallucinations Tetanus Toxoid Other (Please comment) 06/15/2011 Passed out documented as of this encounter (statuses as of 12/01/2018) Medications Medication Sig Dispensed Refills Start Date [...] Each 5 08/01/2018 Active ergocalciferol (VITAMIN D2,DRISDOL,) 97846 UNIT CapsuleIndications: Vitamin D deficiency Take 1 [...] 400 Box Dosing Unit 3 08/30/2018 Active Gabapentin (NEURONTIN) 600 MG TabletIndications:U ncontrolled type 2 diabetes mellitus with stage 3 chronic kidney disease, with long-term current use of insulin (HCC) Take 1 Tab by mouth 3 times a day. 90 Tab 11 09/04/2018 Active clonazePAM (KLONOPIN) 0.5 MG TabletIndications:A nxiety [...] as of this encounter (statuses as of 12/01/2018) Active Problems Problem Noted Date Impetigo 09/27/2018 [...] as of this encounter (statuses as of 12/01/2018) Resolved Problems Problem Noted Date Resolved Date [...] as of this encounter (statuses as of 12/01/2018) Immunizations Name Dates Previously Given Next Due [...] Telephone Encounter - Jayme Walsh DO - 12/01/2018 7:27 AM EST Signed Prescriptions: Disp Refills insulin aspart (NOVOLOG FLEXPEN) 100 UNIT/*15 mL 4 Sig: inject 15 units with breakfast, 10 units with lunch and 18 units with dinner plus sliding scale up to 80 units per day. Authorizing Provider: JAYME WALSH * Telephone Encounter - Mattie Hilario LPN - 11/30/2018 8:36 AM EST Pending Prescriptions: Disp Refills insulin aspart (NOVOLOG FLEXPEN) 100 UNIT*15 mL 4 Sig: inject 15 units with breakfast, 10 units with lunch and 18 units with dinner plus sliding scale up to 80 units per day. documented in this encounter Plan of Treatment Upcoming Encounters Date Type Specialty Care Team Description 12/25/2018 Office Visit Sleep Disorders Paige Patel MD [address] [facility] [place] [id number] 01/11/2019 Office Visit Sleep Disorders Celsa Tafoya CRNP 132 [facility] [place] [id number] 01/17/2019 Pharmacy Pharmacy [facility] [address] [place] [address] 01/24/2019 Office Visit Nephrology Gia White MD 21 [facility] [place] [address] 02/26/2019 Office Visit Family Medicine Kevin Whiteside DO [address] [place] [address] 03/14/2019 Office Visit Cardiology Rey Woodall MD [address] [place] [address] 05/04/2019 Office Visit Sleep Disorders Celsa Tafoya CRNP 132 [facility] [place] [address] Health Maintenance Due Date Last Done Comments DIABETES-EYE EXAM 02/24/2011 02/24/2010 (Do ne elsewhere), 12/18/2009, 02/18/2008 (Done elsewhere) PAP SMEAR-EVERY 3 YRS,AGES 21-65 05/11/2016 05/11/2013, 03/01/2008, 10/19/2006, Additional history exists CKD PHOS USE SMARTSET 09518 12/29/2018 04/01/2018, 08/26/2009, 08/25/2009, Additional history exists DIABETES-FOOT EXAM 12/29/2018 12/29/2017, 0 10/21/2016, 12/11/2015, Additional history exists DIABETES-HGBA1C EVERY 6 MONTHS 03/27/2019 09/27/2018, 05/01/2018, 12/29/2017, Additional history exists CKD GFR USE SMARTSET 35305 05/06/201911/06, 10/30/2018, 10/26/2018, Additional history exists Yearly B-12 05/16/2019 05/16/2018 CKD HGB USE SMARTSET 86258 06/06/201906/06, 06/05/2018, 12/26/2017, Additional history exists BREAST [...] For more information, please contact: [place] [phone] Latest Code Status on File Code Status [...]
--- OUTSIDE RECORDS SUMMARY | 2023-06-01 05:55 | External Medical Summary | Summary of Care ---
Author Name Unknown Organization [place] [address] Care Team Providers Care President And Chief Operating Officer Name Role Phone Kevin Whiteside Primary Care Provider Reason for Visit * Reason Comments Advice Encounter Details Date Type Department Care Team Description 12/08/2018 Telephone Internal Medicine [address] [address] Frances Nicholson, RN [address] [place] [address] Advice Allergies Active Allergy Reactions Severity Noted Date Comments Heparin 09/04/2009 Heparin Induced Thrombocytopenia Empagliflozin Other (Please comment) Medium 05/17/2018 3 yeast infections in 6 weeks after starting Morphine And Related 09/16/1997 Hallucinations Tetanus Toxoid Other (Please comment) 06/15/2011 Passed out documented as of this encounter (statuses as of 12/08/2018) Medications Medication Sig Dispensed Refills Start Date [...] Each 5 08/01/2018 Active ergocalciferol (VITAMIN D2,DRISDOL,) 93086 UNIT CapsuleIndications: Vitamin D deficiency Take 1 [...] as of this encounter (statuses as of 12/08/2018) Active Problems Problem Noted Date Impetigo 09/27/2018 [...] as of this encounter (statuses as of 12/08/2018) Resolved Problems Problem Noted Date Resolved Date [...] as of this encounter (statuses as of 12/08/2018) Immunizations Name Dates Previously Given Next Due [...] Telephone Encounter - Frances Nicholson RN - 12/08/2018 3:51 PM EDT Called pt Advised ER, pt reports that she will comply Frances Nicholson RN, [facility] Case Manger [phone] * Telephone Encounter - Marjorie Powell PA-C - 12/08/2018 3:44 PM EDT Chart reviewed. Given her current symptoms, failure to improve with titration of oral outpatient diuretic, her history of renal dysfunction, I strongly recommend ER for evaluation and likely admission. * Telephone Encounter - Frances Nicholson RN - 12/08/2018 3:10 PM EDT Call from pt Has been feeling SOB for past 4-5 days-cannot walk across living room Increased lower leg swelling Uncertain about weight gain as her scale only goes to 350 so she knows that she has gained over 5 lbs this week (had been weighing 243) Increased lower leg edema C/o abd bloating C/o increased fatigue Has discomfort between shoulder blades Doubled her Lasix-took 80 mg BID on Tu, Wed and Thurs Very little improvement Please advise ER? Frances Nicholson RN, [facility] Director Of Development And Marketing [phone] documented in this encounter Plan of Treatment Upcoming Encounters Date Type Specialty Care Team Description 12/25/2018 Office Visit Sleep Disorders Paige Patel MD [address] [facility] [place] [id number] 01/11/2019 Office Visit Sleep Disorders Celsa Tafoya CRNP [address] [place] [phone] 01/17/2019 Pharmacy Pharmacy [facility] [address] [place] [address] 01/24/2019 Office Visit Nephrology Gia White MD 21 [facility] [place] [phone] 02/26/2019 Office Visit Family Medicine Kevin Whiteside DO [address] [place] [address] [phone] 03/14/2019 Office Visit Cardiology Rey Woodall MD [address] [place] [address] [phone] 05/04/2019 Office Visit Sleep Disorders Celsa Tafoya CRNP [address] [place] [address] Health Maintenance Due Date Last Done Comments DIABETES-EYE EXAM 02/24/2011 02/24/2010 (Do ne elsewhere), 12/18/2009, 02/18/2008 (Done elsewhere) PAP SMEAR-EVERY 3 YRS,AGES 21-65 05/11/2016 05/11/2013, 03/01/2008, 10/19/2006, Additional history exists CKD PHOS USE SMARTSET 04483 12/29/201801/2018, 08/26/2009, 08/25/2009, Additional history exists DIABETES-FOOT EXAM 12/29/2018 12/29/2017, 0 10/21/2016, 12/11/2015, Additional history exists DIABETES-HGBA1C EVERY 6 MONTHS 03/27/2019 09/27/2018, 05/01/2018, 12/29/2017, Additional history exists CKD GFR USE SMARTSET 29931 05/06/201911/06, 10/30/2018, 10/26/2018, Additional history exists Yearly B-12 05/16/2019 05/16/2018 CKD HGB USE SMARTSET 18378 06/06/201906/06, 06/05/2018, 12/26/2017, Additional history exists BREAST [...] For more information, please contact: [place] [phone] Latest Code Status on File Code Status [...]
--- OUTSIDE RECORDS SUMMARY | 2023-06-01 05:55 | External Medical Summary | Summary of Care ---
Author Name Unknown Organization [place] [address] Care Team Providers Care Jewel Cupping Machine Operator Name Role Phone Kevin Whiteside Primary Care Provider Encounter Details Date Type Department Care Team Description 12/08/2018 Scan Encounter Unspecified Department <No scans attached> Allergies Active Allergy Reactions Severity Noted Date Comments Heparin 09/04/2009 Heparin Induced Thrombocytopenia Empagliflozin Other (Please comment) Medium 05/17/2018 3 yeast infections in 6 weeks after starting Morphine And Related 09/16/1997 Hallucinations Tetanus Toxoid Other (Please comment) 06/15/2011 Passed out documented as of this encounter (statuses as of 12/11/2018) Medications Medication Sig Dispensed Refills Start Date [...] Each 5 08/01/2018 Active ergocalciferol (VITAMIN D2,DRISDOL,) 71655 UNIT CapsuleIndications: Vitamin D deficiency Take 1 [...] as of this encounter (statuses as of 12/11/2018) Active Problems Problem Noted Date Impetigo 09/27/2018 [...] 76%, time <89% 6:21 hours, TINY 47 [facility] Postsurgical hypothyroidism 06/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 Primary localized osteoarthrosis, lower leg 07/04/2008 documented as of this encounter (statuses as of 12/11/2018) Resolved Problems Problem Noted Date Resolved Date [...] as of this encounter (statuses as of 12/11/2018) Immunizations Name Dates Previously Given Next Due [...] Office Visit Sleep Disorders Paige Patel MD [address] [place] [address] [place] [address] 01/11/2019 Office Visit Sleep Disorders Celsa Tafoya CRNP [address] [place] [address] [phone] 01/17/2019 Pharmacy Pharmacy [facility] [address] [place] [address] 01/24/2019 Office Visit Nephrology Gia White MD 21 [facility] [place] [id number] 02/26/2019 Office Visit Family Medicine Kevin Whiteside DO [address] [place] [address] [phone] 03/14/2019 Office Visit Cardiology eRy Woodall MD [address] [place] [address] [phone] 05/04/2019 Office Visit Sleep Disorders Celsa Tafoya CRNP [address] [place] [address] [phone] Health Maintenance Due Date Last Done Comments DIABETES-EYE EXAM 02/24/2011 02/24/2010 (Do ne elsewhere), 12/18/2009, 02/18/2008 (Done elsewhere) PAP SMEAR-EVERY 3 YRS,AGES 21-65 05/11/2016 05/11/2013, 03/01/2008, 10/19/2006, Additional history exists CKD PHOS USE SMARTSET 40686 12/29/2018 04/0 01/2018, 08/26/2009, 08/25/2009, Additional history exists DIABETES-FOOT EXAM 12/29/2018 12/29/2017, 0 10/21/2016, 12/11/2015, Additional history exists DIABETES-HGBA1C EVERY 6 MONTHS 03/27/2019 09/27/2018, 05/01/2018, 12/29/2017, Additional history exists CKD GFR USE SMARTSET 07428 05/06/201911/06, 10/30/2018, 10/26/2018, Additional history exists Yearly B-12 05/16/2019 05/16/2018 CKD HGB USE SMARTSET 44260 06/06/201906/06, 06/05/2018, 12/26/2017, Additional history exists BREAST [...] For more information, please contact: [place] [phone] Latest Code Status on File Code Status [...]
--- OUTSIDE RECORDS SUMMARY | 2023-06-01 05:55 | External Medical Summary | Summary of Care ---
Author Name Unknown Organization [place] [address] Care Team Providers Care Machine Driller Name Role Phone Kevin Whiteside DO Primary Care Provider Encounter Details Date Type Department Care Team Description 12/11/2018 Orders Only Family Practice [facility] [address] [place] [address] Kevin [facility]ide DO [address] [facility] [address] Allergies Active Allergy Reactions [...] Each 5 08/01/2018 Active ergocalciferol (VITAMIN D2,DRISDOL,) 55812 UNIT CapsuleIndications: Vitamin D deficiency Take 1 [...] Office Visit Sleep Disorders Paige Patel MD [address] [place] [address] [place] [address] 01/11/2019 Office Visit Sleep Disorders [facility] [place] [address] [phone] 01/17/2019 Pharmacy Pharmacy [facility] [address] [place] [address] 01/24/2019 Office Visit Nephrology Gia White MD 21 [facility] [place] [id number] [phone] 02/26/2019 Office Visit Family Medicine Kevin Whiteside DO [address] [place] [address] [phone] 03/14/2019 Office Visit Cardiology Rey Woodall MD [address] [place] [address] 05/04/2019 Office Visit Sleep Disorders Celsa Tafoya CRNP [address] [place] [address] [phone] Health Maintenance Due Date Last Done Comments DIABETES-EYE EXAM 02/24/2011 02/24/2010 (Do ne elsewhere), 12/18/2009, 02/18/2008 (Done elsewhere) PAP SMEAR-EVERY 3 YRS,AGES 21-65 05/11/2016 05/11/2013, 03/01/2008, 10/19/2006, Additional history exists CKD PHOS USE SMARTSET 12079 12/29/2018 04/0 01/2018, 08/26/2009, 08/25/2009, Additional history exists DIABETES-FOOT EXAM 12/29/2018 12/29/2017, 0 10/21/2016, 12/11/2015, Additional history exists DIABETES-HGBA1C EVERY 6 MONTHS 03/27/2019 09/27/2018, 05/01/2018, 12/29/2017, Additional history exists CKD GFR USE SMARTSET 57006 05/06/201911/06, 10/30/2018, 10/26/2018, Additional history exists Yearly B-12 05/16/2019 05/16/2018 CKD HGB USE SMARTSET 71521 06/06/201906/06, 06/05/2018, 12/26/2017, Additional history exists BREAST [...] Priority Date/Time Associated Diagnosis Comments CHEMISTRY-OUTSIDE Routine 12/08/2018 documented in this encounter Results * CHEMISTRY-OUTSIDE (12/08/2018) CREATININE-OUTSIDE LAB 1.95(A) 0.6 - 1.2 MG/DL OU TSIDE LAB (SEE SCANNED REPORT) GFR ESTIMATED-OUTSIDE LAB 26.7 >60 ML/MIN OU TSIDE LAB (SEE SCANNED REPORT) POTASSIUM-OUTSIDE LAB 4.1 3.5 - 5.1 MMOL/L OU TSIDE LAB (SEE SCANNED REPORT) GLUCOSE-OUTSIDE LAB 314(A) 70 - 99 MG/DL OUTSIDE LAB (SEE [...] LAB OUTSIDE LAB (SEE SCANNED REPORT) HEMOGLOBIN, [id number] LAB OUTSIDE LAB (SEE SCANNED REPORT) PHOSPHORUS-OUTSIDE LAB OUTSI DE LAB (SEE SCANNED REPORT) PTH-OUTSIDE LAB OUTSIDE LAB (SEE SCANNED REPORT) MICROALBUMIN RATIO-OUTSIDE LAB OUTSIDE LAB (SEE SCANNED REPORT) PROTEIN, UA-OUTSIDE LAB NEGATIVE NEGATIVE MG/DL OU TSIDE LAB (SEE SCANNED REPORT) HEMOGLOBIN-OUTSIDE LAB 12.7 12.0 - 16.0 G/DL O UTSIDE LAB (SEE SCANNED REPORT) CHEMISTRY COMMENT-OUTSIDE LAB Comment:SEE SCAN ER [facility]: CMP, BHB, MG, TROP I, PT INR, PTT, D-DIMER, CBCD, UA OUTSIDE LAB (SEE SCANNED REPORT) Narrative Performed At Performing Organization Address City/State/Zipcod e Phone Number OUTSIDE LAB (SEE SCANNED REPORT) documented in this encounter Advance Directives Patient has advance care planning documents, and code status on file. For more information, please contact: [place] [phone] Latest Code Status on File Code Status [...]
--- OUTSIDE RECORDS SUMMARY | 2023-06-01 05:55 | External Medical Summary | Summary of Care ---
Author Name Unknown Organization [place] [address] Care Team Providers Care Toolroom Machinist Name Role Phone Whiteside Kevin Shermelinda Primary Care Provider Unavailable Reason for Visit * Reason Comments Appointment Encounter Details Date Type Department Care Team Description 11/10/2018 [facility] [place] [address] Sp[facility] [address] [facility] [place] [address] Uncontrolled type 2 diabetes mellitus with stage 3 chronic kidney disease, with long-term current use of insulin ([facility])*; Type 2 diabetes mellitus with hemoglobin A1c goal of 7.0%-8.0% ([facility]) Allergies Active Allergy Reactions Severity Noted Date Comments Heparin 09/04/2009 Heparin Induced Thrombocytopenia Empagliflozin Other (Please comment) Medium 05/17/2018 3 yeast infections in 6 weeks after starting Morphine And Related 09/16/1997 Hallucinations Tetanus Toxoid Other (Please comment) 06/15/2011 Passed out documented as of this encounter (statuses as of 11/10/2018) Medications Medication Sig Dispensed Refills Start Date [...] SPASM 90 Tab 2 08/01/2018 Active Insulin Degludec (TRESIBA FLEXTOUCH) 200 UNIT/ML SOPN Inject up to 160 units daily as directed 10 Box Dosing Unit 5 08/01/2018 Active Insulin Pen Needle (BD PEN NEEDLE SHORT U/F) 31G X 8 MM Use 5 times daily with insulin 200 Box Dosing Unit 11 08/01/2018 Active levothyroxine (LEVOXYL) 200 MCG TabletIndications:Po stsurgical hypothyroidism TAKE ONE TABLET BY MOUTH ONE TIME DAILY at least 30 minutes prior to breakfast or other meds 90 Tab 5 08/01/2018 Active levothyroxine (LEVOXYL) 25 MCG TabletIndications:Po stsurgical [...] 5 08/01/2018 Active rOPINIRole (REQUIP) 1 MG TabletIndications:Re stless legs syndrome Take 1 Tab by mouth at bedtime. 90 Tab 4 08/01/2018 Active sertraline (ZOLOFT) 100 MG TabletIndications:De pression with anxiety TAKE ONE AND ONE-HALF TABLETS BY MOUTH DAILY 135 Tab 1 08/01/2018 Active metoprolol tartrate (LOPRESSOR) 25 MG TabletIndications:HT [...] Each 5 08/01/2018 Active ergocalciferol (VITAMIN D2,DRISDOL,) 46233 UNIT CapsuleIndications:V itamin D deficiency Take 1 Cap [...] 3 08/30/2018 Active Gabapentin (NEURONTIN) 600 MG TabletIndications:Un controlled type 2 diabetes mellitus with stage 3 chronic kidney disease, with long-term current use of insulin (HCC) Take 1 Tab by mouth 3 times a day. 90 Tab 11 09/04/2018 Active clonazePAM (KLONOPIN) 0.5 MG TabletIndications:An xiety state TAKE ONE TABLET BY MOUTH TWICE DAILY 180 Tab 3 09/11/2018 Active furosemide (LASIX) 80 MG TabletIndications:Ac [place] diastolic congestive heart failure (HCC) Take 1 Tab by mouth daily. Take an additional tablet as directed or needed for fluid retention 60 Tab 3 10/23/2018 Active lisinopril (PRINIVIL) 2.5 MG TabletIndications:HT N, goal below 140/80,Acute diastolic congestive heart failure (HCC),Body mass index (BMI) of 50.0 to 59.9 in adult (HCC),Hypoxemia,ELISSA (obstructive sleep apnea),HTN, goal below 130/80 Take 1 Tab by mouth daily. 31 Tab 5 11/02/2018 Active documented as of this encounter (statuses as of 11/10/2018) Active Problems Problem Noted Date Impetigo 09/27/2018 [...] as of this encounter (statuses as of 11/10/2018) Resolved Problems Problem Noted Date Resolved Date [...] as of this encounter (statuses as of 11/10/2018) Immunizations Name Dates Previously Given Next Due [...] as of this encounter Progress Notes * Mar Simeon OSA - 11/10/2018 1:29 PM EST [facility] clinic scheduled patient for her 2 month BG review for 11/20 at 11am.,patient will bring her meter. documented in this encounter Plan of Treatment Upcoming Encounters Date Type Specialty Care Team Description 11/10/2018 Pharmacy Pharmacy Sp, [facility] [address] [facility] [address] [phone] Uncontrolled type 2 diabetes mellitus with stage 3 chronic kidney disease, with long-term current use of insulin ([facility])*; Type 2 diabetes mellitus with hemoglobin A1c goal of 7.0%-8.0% ([facility]) 11/14/2018 Office Visit Family Medicine Kevin Whiteside DO [address] [place] [address] [phone] 11/20/2018 Pharmacy Pharmacy Sp, [facility] [address] [facility] [place] [address] [phone] 12/04/2018 Office Visit Family Kevin Richter DO [address] [place] [address] [phone] 12/25/2018 Office Visit Sleep Disorders Paige Patel MD [address] [place] [address] [place] [phone] 01/11/2019 Office Visit Sleep Disorders Celsa Tafoya CRNP 132 [facility] [place] [address] [phone] 01/24/2019 Office Visit Nephrology Gia White MD [address] [place] [address] [phone] 03/14/2019 Office Visit Cardiology Rey Woodall MD 132 [facility] [place] [address] [phone] 05/04/2019 Office Visit Sleep Disorders Celsa Tafoya CRNP [address] [facility] [place] [address] [phone] Health Maintenance Due Date Last Done Comments DIABETES-EYE EXAM 02/24/2011 02/24/2010 (Do ne elsewhere), 12/18/2009, 02/18/2008 (Done elsewhere) PAP SMEAR-EVERY 3 YRS,AGES 21-65 05/11/2016 05/11/2013, 03/01/2008, 10/19/2006, Additional history exists CKD PHOS USE SMARTSET 76763 12/29/201801/2018, 08/26/2009, 08/25/2009, Additional history exists DIABETES-FOOT EXAM 12/29/2018 12/29/2017, 0 10/21/2016, 12/11/2015, Additional history exists DIABETES-HGBA1C EVERY 6 MONTHS 03/27/2019 09/27/2018, 05/01/2018, 12/29/2017, Additional history exists CKD GFR USE SMARTSET 49323 05/06/201911/06, 10/30/2018, 10/26/2018, Additional history exists Yearly B-12 05/16/2019 05/16/2018 CKD HGB USE SMARTSET 76303 06/06/201906/06, 06/05/2018, 12/26/2017, Additional history exists BREAST [...] For more information, please contact: [place] [phone] Latest Code Status on File Code Status [...]
--- OUTSIDE RECORDS SUMMARY | 2023-06-01 05:55 | External Medical Summary | Summary of Care ---
Author Name Unknown Organization [place] [address] Care Team Providers Care Coil Connector Name Role Phone Migue Whiteside DO Primary Care Provider Reason for Visit * Reason Comments eRx-Medication Refill Encounter Details Date Type Department Care Team Description 11/19/2018 Refill Family Practice [facility] [address] [facility] [address] Migue Whiteside DO [address] [facility] [address] Allergies Active Allergy Reactions Severity Noted Date Comments Heparin 09/04/2009 Heparin Induced Thrombocytopenia Empagliflozin Other (Please comment) Medium 05/17/2018 3 yeast infections in 6 weeks after starting Morphine And Related 09/16/1997 Hallucinations Tetanus Toxoid Other (Please comment) 06/15/2011 Passed out documented as of this encounter (statuses as of 11/20/2018) Medications Medication Sig Dispensed Refills Start Date [...] NEEDED FOR MUSCLE SPASM 90 Tab 2 11/06/20 18 Active Insulin Pen Needle (BD PEN [...] 5 08/01/20 18 Active ergocalciferol (VITAMIN D2,DRISDOL,) 22404 UNIT CapsuleIndications :Vitamin D deficiency Take 1 [...] as directed 9 mL 5 11/20/19 19 Active Insulin Degludec (TRESIBA FLEXTOUCH) 200 UNIT/ML SOPN Inject up to 160 units daily as directed 10 Box Dosing Unit 5 08/01/20 18 019 Discontinued documented as of this encounter (statuses as of 11/20/2018) Active Problems Problem Noted Date Impetigo 09/27/2018 [...] 10/14/2014 Overview: ICD-10 update of inactive term [place] filter in place 08/19/2014 History of [...] as of this encounter (statuses as of 11/20/2018) Resolved Problems Problem Noted Date Resolved Date [...] as of this encounter (statuses as of 11/20/2018) Immunizations Name Dates Previously Given Next Due [...] Telephone Encounter - Migue Whiteside DO - 11/20/2018 8:39 PM EST Signed Prescriptions: Disp Refills Insulin Degludec (TRESIBA FLEXTOUCH) 200 U*9 mL 5 Sig: Inject up to 160 units subcutaneously once daily as directed Authorizing Provider: MIGUE WHITESIDE * Telephone Encounter - Inez Nichole CPhT - 11/20/2018 1:34 PM EST Pt calling to check on status of prescription. Pt can be reached at the following number(s): Patient Phone Numbers Inez Ly CPhT [employer] Pharmacy Refill Call Center 11/20/2018,1:34 PM * Telephone Encounter - Angi Hunt LPN - 11/20/2018 9:54 AM EST Pending Prescriptions: Disp Refills Insulin Degludec (TRESIBA FLEXTOUCH) 200 *9 mL 5 Sig: Inject up to 160 units subcutaneously once daily as directed * Telephone Encounter - Angi Hunt LPN - 11/20/2018 9:54 AM EST Pending Prescriptions: Disp Refills Insulin Degludec (TRESIBA FLEXTOUCH) 200 *9 mL 5 Sig: Inject up to 160 units subcutaneously once daily as directed Last Office Visit: 11/14/2018 Next Office Visit: 02/26/2019 Scheduled Provider(s): Migue Whiteside DO Last date the medication was ordered: 08/01/18 Patient Active Problem List Diagnosis Code Primary [...] of 7.0%-8.0% ([facility]) E11.9 Fibromyalgia M79.7 Abnormality of gait R26.9 Restless legs syndrome G25.81 Gastroesophageal reflux disease with esophagitis K21.0 Uncontrolled type 2 diabetes mellitus with stage 3 chronic kidney disease, with long-term current use of insulin ([facility]) E11.22, E11.65, N18.3, Z79.4 Body mass index (BMI) of 50.0 to 59.9 in adult ([facility]) Z68.43 Controlled substance agreement signed Z79.899 Chronic diastolic congestive heart failure ([facility]) I50.32 Thoracic back pain M54.6 Mild episode of recurrent major depressive disorder (HCC) F33.0 Impetigo L01.00 Lumbar radiculopathy M54.16 Labs: CREATININE(mg/dL) Nessa Dt/Tm Resulted Value Status 11/06/18 12:41P 11/06/18 1.5* FINAL POTASSIUM(mmol/L) Nessa Dt/Tm Resulted Value Status 11/06/18 12:41P 11/06/18 4.3 FINAL TSH(uIU/mL) Nessa Dt/Tm Resulted Value Status 05/01/18 9:12A 05/01/18 3.14 FINAL LDL (CALCULATED)(mg/dL) Nessa Dt/Tm Resulted Value Status 08/01/18 8:29A 08/01/18 111 FINAL LDL DIRECT(REFLEX)(mg/dL) Nessa Dt/Tm Resulted Value Status 08/01/18 8:29A 08/01/18 FINAL Value: NOT APPLICABLE ALT(U/L) Nessa Dt/Tm Resulted Value Status 10/26/18 9:39A 10/26/18 23 FINAL Hemoglobin AIC Results: HEMOGLOBIN, A1C(%) Nessa Dt/Tm Resulted Value Status 09/27/18 1:48P 09/27/18 9.5* FINAL 05/01/18 9:12A 05/01/18 10.0* FINAL 12/29/17 12:43P 12/29/17 11.6* FINAL documented in this encounter Plan of Treatment Upcoming Encounters Date Type Specialty Care Team Description 11/22/2018 Pharmacy Pharmacy [facility] [address] [place] [address] 12/25/2018 Office Visit Sleep Disorders Paige Patel MD [address] [place] [address] [place] [address] 01/11/2019 Office Visit Sleep Disorders Celsa Tafoya CRNP [address] [place] [address] [phone] 01/24/2019 Office Visit Nephrology Gia White MD [address] [facility] [place] [address] 02/26/2019 Office Visit Family Medicine Migue Whiteside DO [address] [place] [address] 03/14/2019 Office Visit Cardiology Rey Woodall MD [address] [place] [address] [phone] 05/04/2019 Office Visit Sleep Disorders Celsa Tafoya CRNP [address] [place] [address] Health Maintenance Due Date Last Done Comments DIABETES-EYE EXAM 02/24/2011 02/24/2010 (Do ne elsewhere), 12/18/2009, 02/18/2008 (Done elsewhere) PAP SMEAR-EVERY 3 YRS,AGES 21-65 05/11/2016 05/11/2013, 03/01/2008, 10/19/2006, Additional history exists CKD PHOS USE SMARTSET 88599 12/29/2018 04/0 01/2018, 08/26/2009, 08/25/2009, Additional history exists DIABETES-FOOT EXAM 12/29/2018 12/29/2017, 0 10/21/2016, 12/11/2015, Additional history exists DIABETES-HGBA1C EVERY 6 MONTHS 03/27/2019 09/27/2018, 05/01/2018, 12/29/2017, Additional history exists CKD GFR USE SMARTSET 19891 05/06/201911/06, 10/30/2018, 10/26/2018, Additional history exists Yearly B-12 05/16/2019 05/16/2018 CKD HGB USE SMARTSET 92550 06/06/201906/06, 06/05/2018, 12/26/2017, Additional history exists BREAST [...] For more information, please contact: [place] [phone] Latest Code Status on File Code Status [...]
--- OUTSIDE RECORDS SUMMARY | 2023-06-01 05:55 | External Medical Summary | Summary of Care ---
Author Name Unknown Organization [place] [address] Care Team Providers Care Soot Blower Name Role Phone Kevin Whiteside Primary Care Provider Encounter Details Date Type Department Care Team Description 12/11/2018 Orders Only Cardiology, [facility] [address] [facility] [place] [address] Rey Woodall MD 132 [place] [address] Allergies Active Allergy Reactions Severity Noted [...] Each 5 08/01/2018 Active ergocalciferol (VITAMIN D2,DRISDOL,) 73346 UNIT CapsuleIndications: Vitamin D deficiency Take 1 [...] Office Visit Sleep Disorders Paige Patel MD [address] [place] [address] [place] [phone] 01/11/2019 Office Visit Sleep Disorders Celsa Tafoya CRNP 132 [facility] [place] [address] [phone] 01/17/2019 Pharmacy Pharmacy [facility] [address] [place] [address] 01/24/2019 Office Visit Nephrology Gia White MD 21 [facility] [place] [id number] [phone] 02/26/2019 Office Visit Family Medicine Kevin Whiteside DO [address] [place] [address] [phone] 03/14/2019 Office Visit Cardiology Rey Woodall MD [address] [place] [address] 05/04/2019 Office Visit Sleep Disorders Celsa Tafoya CRNP [address] [place] [address] [phone] Health Maintenance Due Date Last Done Comments DIABETES-EYE EXAM 02/24/2011 02/24/2010 (Do ne elsewhere), 12/18/2009, 02/18/2008 (Done elsewhere) PAP SMEAR-EVERY 3 YRS,AGES 21-65 05/11/2016 05/11/2013, 03/01/2008, 10/19/2006, Additional history exists CKD PHOS USE SMARTSET 22314 12/29/2018/01/2018, 08/26/2009, 08/25/2009, Additional history exists DIABETES-FOOT EXAM 12/29/2018 12/29/2017, 0 10/21/2016, 12/11/2015, Additional history exists DIABETES-HGBA1C EVERY 6 MONTHS 03/27/2019 09/27/2018, 05/01/2018, 12/29/2017, Additional history exists CKD GFR USE SMARTSET 61503 05/06/201911/06, 10/30/2018, 10/26/2018, Additional history exists Yearly B-12 05/16/2019 05/16/2018 CKD HGB USE SMARTSET 40309 06/06/201906/06, 06/05/2018, 12/26/2017, Additional history exists BREAST [...] encounter Results * CHEMISTRY-OUTSIDE (12/08/2018) CREATININE-OUTSIDE LAB OUTSI DE LAB (SEE SCANNED REPORT) GFR ESTIMATED-OUTSIDE LAB OU TSIDE LAB (SEE SCANNED REPORT) POTASSIUM-OUTSIDE LAB OUTSID E LAB (SEE SCANNED REPORT) GLUCOSE-OUTSIDE LAB OUTSIDE LAB (SEE SCANNED REPORT) HOURS FASTING OUTSIDE LAB (S EE SCANNED REPORT) TRIGLYCERIDES-OUTSIDE LAB OU TSIDE LAB (SEE SCANNED REPORT) CHOLESTEROL-OUTSIDE LAB OUTS SUSAN LAB (SEE SCANNED REPORT) HDL-OUTSIDE LAB OUTSIDE LAB (SEE SCANNED REPORT) CHOL/HDL RATIO-OUTSIDE LAB O UTSIDE LAB (SEE SCANNED REPORT) LDL (CALCULATED)-OUTSIDE LAB OUTSIDE LAB (SEE SCANNED REPORT) LDL (DIRECT MEASURE)-OUTSIDE LAB OUTSIDE LAB (SEE SCA NNED REPORT) HEMOGLOBIN, [id number] LAB OUTSIDE LAB (SEE SCANNED REPORT) PHOSPHORUS-OUTSIDE LAB OUTSI DE LAB (SEE SCANNED REPORT) PTH-OUTSIDE LAB OUTSIDE LAB (SEE SCANNED REPORT) MICROALBUMIN RATIO-OUTSIDE LAB OUTSIDE LAB (SEE SCA NNED REPORT) PROTEIN, UA-OUTSIDE LAB NEGATIVE NEGATIVE OUTS SUSAN LAB (SEE SCANNED REPORT) HEMOGLOBIN-OUTSIDE LAB OUTSI DE LAB (SEE SCANNED REPORT) CHEMISTRY COMMENT-OUTSIDE LAB Comment:SEE SCAN ER [facility]: UA OUTSIDE LAB (SEE SCANNED REPORT) Narrative Performed At Performing Organization Address City/State/Zipcod e Phone Number OUTSIDE LAB (SEE SCANNED REPORT) documented in this encounter Advance Directives Patient has advance care planning documents, and code status on file. For more information, please contact: [place] [phone] Latest Code Status on File Code Status [...]
--- OUTSIDE RECORDS SUMMARY | 2023-06-01 05:55 | External Medical Summary | Summary of Care ---
Author Name Unknown Organization [place] [address] Care Team Providers Care Mechanical Engineering Lecturer Name Role Phone Kevin Whiteside Primary Care Provider Reason for Visit * Reason Comments case management Encounter Details Date Type Department Care Team Description 11/16/2018 Telephone Internal Medicine [address] [address] Frances Nicholson RN 132 [place] [address] case management Allergies Active Allergy Reactions Severity Noted Date Comments Heparin 09/04/2009 Heparin Induced Thrombocytopenia Empagliflozin Other (Please comment) Medium 05/17/2018 3 yeast infections in 6 weeks after starting Morphine And Related 09/16/1997 Hallucinations Tetanus Toxoid Other (Please comment) 06/15/2011 Passed out documented as of this encounter (statuses as of 11/16/2018) Medications Medication Sig Dispensed Refills Start Date [...] Each 5 08/01/2018 Active ergocalciferol (VITAMIN D2,DRISDOL,) 32641 UNIT CapsuleIndications:V itamin D deficiency Take 1 [...] 09/11/2018 Active furosemide (LASIX) 80 MG TabletIndications:Ac ulysses diastolic congestive heart failure (HCC) Take 1 [...] 5 11/02/2018 Active DULoxetine (CYMBALTA) 30 MG CPEPIndications:Fibr omyalgia,Moderate episode of recurrent major depressive disorder (HCC),Primary osteoarthritis of both knees Take 1 Cap by mouth daily. 90 Cap 1 11/14/2018 Active documented as of this encounter (statuses as of 11/16/2018) Active Problems Problem Noted Date Impetigo 09/27/2018 [...] 10/14/2014 Overview: ICD-10 update of inactive term [place] filter in place 08/19/2014 History of pulmonary [...] as of this encounter (statuses as of 11/16/2018) Resolved Problems Problem Noted Date Resolved Date [...] as of this encounter (statuses as of 11/16/2018) Immunizations Name Dates Previously Given Next Due [...] Telephone Encounter - Frances Nicholson RN - 11/16/2018 4:06 PM EST Call placed to pt. No answer, left message on VM requesting return call -assisting pt to sort out insurance. Will refer to Office of aging-Ricardo Fonseca or Giselle to assist pt Frances Nicholson RN, [facility] Sociology Research Assistant [phone] documented in this encounter Plan of Treatment Upcoming Encounters Date Type Specialty Care Team Description 11/22/2018 Pharmacy Pharmacy [facility] Jeramie [address] [place] [address] 12/25/2018 Office Visit Sleep Disorders Paige Patel MD [address] [place] [id number] 01/11/2019 Office Visit Sleep Disorders Celsa Tafoya CRNP [address] [place] [address] [phone] 01/24/2019 Office Visit Nephrology Gia White MD 21 [facility] [place] [phone] 02/26/2019 Office Visit Family Medicine Kevin Whiteside DO [address] [place] [address] [phone] 03/14/2019 Office Visit Cardiology Rey Woodall MD 132 [place] [address] 05/04/2019 Office Visit Sleep Disorders Celsa Tafoya CRNP 132 [place] [address] [phone] Health Maintenance Due Date Last Done Comments DIABETES-EYE EXAM 02/24/2011 02/24/2010 (Do ne elsewhere), 12/18/2009, 02/18/2008 (Done elsewhere) PAP SMEAR-EVERY 3 YRS,AGES 21-65 05/11/2016 05/11/2013, 03/01/2008, 10/19/2006, Additional history exists CKD PHOS USE SMARTSET 13623 12/29/2018 04/0 01/2018, 08/26/2009, 08/25/2009, Additional history exists DIABETES-FOOT EXAM 12/29/2018 12/29/2017, 0 10/21/2016, 12/11/2015, Additional history exists DIABETES-HGBA1C EVERY 6 MONTHS 03/27/2019 09/27/2018, 05/01/2018, 12/29/2017, Additional history exists CKD GFR USE SMARTSET 66295 05/06/201911/06, 10/30/2018, 10/26/2018, Additional history exists Yearly B-12 05/16/2019 05/16/2018 CKD HGB USE SMARTSET 51793 06/06/201906/06, 06/05/2018, 12/26/2017, Additional history exists BREAST [...] For more information, please contact: [place] [phone] Latest Code Status on File Code Status [...]
--- OUTSIDE RECORDS SUMMARY | 2023-06-01 05:55 | External Medical Summary | Summary of Care ---
Author Name Unknown Organization [place] [address] Care Team Providers Care Brush Polisher Name Role Phone Kevin Whiteside Primary Care Provider Reason for Visit * Reason Comments Appointment Encounter Details Date Type Department Care Team Description 11/14/2018 Pharm[address], [facility] [address] [facility] [address] Uncontrolled type 2 diabetes mellitus with stage [...] Each 5 08/01/2018 Active ergocalciferol (VITAMIN D2,DRISDOL,) 70324 UNIT CapsuleIndications:V itamin D deficiency Take 1 [...] 09/11/2018 Active furosemide (LASIX) 80 MG TabletIndications:Ac kiana diastolic congestive heart failure (HCC) Take 1 [...] as of this encounter Progress Notes * Shira Wei OSA - 11/14/2018 3:13 PM EST Called patient and she r/s her DM visit to follow up at [facility]. documented in this encounter Plan of Treatment Upcoming Encounters Date Type Specialty Care Team Description 11/14/2018 Pharmacy Pharmacy [address] [place] [address] Uncontrolled type 2 diabetes mellitus with stage 3 chronic kidney disease, with long-term current use of insulin ([facility])*; Type 2 diabetes mellitus with hemoglobin A1c goal of 7.0%-8.0% ([facility]) 11/22/2018 Pharmacy Pharmacy [facility] 132 [facility] [place] [address] 12/25/2018 Office Visit Sleep Disorders Paige Patel MD [address] [place] [address] [place] [address] [phone] 01/11/2019 Office Visit Sleep Disorders Celsa Tafoya CRNP 132 [facility] [place] [address] [phone] 01/24/2019 Office Visit Nephrology Gia White MD 21 [facility] [place] [address] [phone] 02/26/2019 Office Visit Family Medicine Kevin Whiteside DO 132 [place] [address] [phone] 03/14/2019 Office Visit Cardiology Rey Woodall MD 132 [place] [address] [phone] 05/04/2019 Office Visit Sleep Disorders Celsa Tafoya CRNP 132 [place] [address] Health Maintenance Due Date Last Done Comments DIABETES-EYE EXAM 02/24/2011 02/24/2010 (Do ne elsewhere), 12/18/2009, 02/18/2008 (Done elsewhere) PAP SMEAR-EVERY 3 YRS,AGES 21-65 05/11/2016 05/11/2013, 03/01/2008, 10/19/2006, Additional history exists CKD PHOS USE SMARTSET 61333 12/29/2018 04/0 01/2018, 08/26/2009, 08/25/2009, Additional history exists DIABETES-FOOT EXAM 12/29/2018 12/29/2017, 0 10/21/2016, 12/11/2015, Additional history exists DIABETES-HGBA1C EVERY 6 MONTHS 03/27/2019 09/27/2018, 05/01/2018, 12/29/2017, Additional history exists CKD GFR USE SMARTSET 49876 05/06/201911/06, 10/30/2018, 10/26/2018, Additional history exists Yearly B-12 05/16/2019 05/16/2018 CKD HGB USE SMARTSET 16082 06/06/201906/06, 06/05/2018, 12/26/2017, Additional history exists BREAST [...] For more information, please contact: [place] [phone] Latest Code Status on File Code Status [...]
--- OUTSIDE RECORDS SUMMARY | 2023-06-01 05:55 | External Medical Summary | Summary of Care ---
Author Name Unknown Organization [place] [address] Care Team Providers Care [place] Construction Supervisor Name Role Phone Kevin Whiteside Primary [...] Each 5 08/01/2018 Active ergocalciferol (VITAMIN D2,DRISDOL,) 61364 UNIT CapsuleIndications: Vitamin D deficiency Take 1 [...] 6:21 hours, TINY 47 [facility] Postsurgical hypothyroidism 06/16/2011 ELLIE (generalized anxiety [...] Office Visit Sleep Disorders Paige Patel MD [address] [place] [address] [place] [address] 01/11/2019 Office Visit Sleep Disorders Celsa Tafoya CRNP [address] [place] [address] [phone] 01/17/2019 Pharmacy Pharmacy [facility] [address] [place] [address] 01/24/2019 Office Visit Nephrology Gia White MD 21 [facility] [place] [phone] 02/26/2019 Office Visit Family Medicine Kevin Whiteside DO 132 [place] [address] [phone] 03/14/2019 Office Visit Cardiology Rey Woodall MD 132 [place] [address] [phone] 05/04/2019 Office Visit Sleep Disorders Celsa Tafoya CRNP [address] [place] [address] [phone] Health Maintenance Due Date Last Done Comments DIABETES-EYE EXAM 02/24/2011 02/24/2010 (Do ne elsewhere), 12/18/2009, 02/18/2008 (Done elsewhere) PAP SMEAR-EVERY 3 YRS,AGES 21-65 05/11/2016 05/11/2013, 03/01/2008, 10/19/2006, Additional history exists CKD PHOS USE SMARTSET 80592 12/29/2018 04/0 01/2018, 08/26/2009, 08/25/2009, Additional history exists DIABETES-FOOT EXAM 12/29/2018 12/29/2017, 0 10/21/2016, 12/11/2015, Additional history exists DIABETES-HGBA1C EVERY 6 MONTHS 03/27/2019 09/27/2018, 05/01/2018, 12/29/2017, Additional history exists CKD GFR USE SMARTSET 73743 05/06/201911/06, 10/30/2018, 10/26/2018, Additional history exists Yearly B-12 05/16/2019 05/16/2018 CKD HGB USE SMARTSET 68934 06/06/201906/06, 06/05/2018, 12/26/2017, Additional history exists BREAST [...] For more information, please contact: [place] [phone] Latest Code Status on File Code Status [...]
--- OUTSIDE RECORDS SUMMARY | 2023-06-01 05:56 | External Medical Summary | Summary of Care ---
Author Name Unknown Organization [place] [address] Care Team Providers Care Security Supervisor Name Role Phone Kevin Whiteside Primary Care Provider Reason for Visit * Reason Comments Test Results Encounter Details Date Type Department Care Team Description 10/26/2018 Telephone Cardiology, [facility] [address] [place] [address] Xenia Lima RN 200 [facility], [place] [id number] Test Results Allergies Active Allergy Reactions Severity Noted Date Comments Heparin 09/04/2009 Heparin Induced Thrombocytopenia Empagliflozin Other (Please comment) Medium 05/17/2018 3 yeast infections in 6 weeks after starting Morphine And Related 09/16/1997 Hallucinations Tetanus Toxoid Other (Please comment) 06/15/2011 Passed out documented as of this encounter (statuses as of 10/26/2018) Medications Medication Sig Dispensed Refills Start Date [...] Pen Syringe Dosing Unit 11 08/01/2018 Active lisinopril (PRINIVIL) 10 MG TabletIndications:HT N, goal below 140/80,Acute diastolic congestive heart failure (HCC),Body mass index (BMI) of 50.0 to 59.9 in adult (HCC),Hypoxemia,ELISSA (obstructive sleep apnea),HTN, goal below 130/80 Take 0.5 Tabs by mouth daily. 90 Tab 3 08/01/2018 Active Nortriptyline HCl (PAMELOR) 50 MG [...] Each 5 08/01/2018 Active ergocalciferol (VITAMIN D2,DRISDOL,) 79843 UNIT CapsuleIndications:V itamin D deficiency Take 1 [...] 09/11/2018 Active furosemide (LASIX) 80 MG TabletIndications:Ac [place] diastolic congestive heart failure (HCC) Take 1 Tab by mouth daily. Take an additional tablet as directed or needed for fluid retention 60 Tab 3 10/23/2018 Active documented as of this encounter (statuses as of 10/26/2018) Active Problems Problem Noted Date Impetigo 09/27/2018 [...] as of this encounter (statuses as of 10/26/2018) Resolved Problems Problem Noted Date Resolved Date [...] as of this encounter (statuses as of 10/26/2018) Immunizations Name Dates Previously Given Next Due [...] encounter Miscellaneous Notes * Telephone Encounter - Xenia Lima RN - 10/26/2018 2:30 PM EST Spoke to patient. She is aware to stay on Furosemide daily and agreed to labs early next week Order placed for BMP * Telephone Encounter - Xenia Lima RN - 10/26/2018 2:28 PM EST ----- Message from Marjorie Powell PA-C sent at 10/26/2018 12:53 PM EST ----- Acute renal insufficiency after recent titration of diuretics due to volume overload. As we discussed at office visit, continue furosemide 80 mg for now (previously taking 80 BID). Repeat BMP early next week. documented in this encounter Plan of Treatment Upcoming Encounters Date Type Specialty Care Team Description 12/04/2018 Office Visit Family Medicine Kevin Whiteside DO 132 [place] [address] [phone] 01/24/2019 Office Visit Nephrology Gia White MD 21 [facility] [place] [phone] 03/14/2019 Office Visit Cardiology Rey Woodall MD [address] [place] [address] [phone] 05/04/2019 Office Visit Sleep Disorders Celsa Tafoya CRNP [address] [place] [address] [phone] Scheduled Tests Name Priority Associated Diagnoses Order S chedule BASIC METAB PANEL, BMP Routine Chronic diastolic congestive heart failure (HCC) Expected: 11/02/2018 (Approximate), Expires: 11/24/2019 Health Maintenance Due Date Last Done Comments DIABETES-EYE EXAM 02/24/2011 02/24/2010 (Do ne elsewhere), 12/18/2009, 02/18/2008 (Done elsewhere) PAP SMEAR-EVERY 3 YRS,AGES 21-65 05/11/2016 05/11/2013, 03/01/2008, 10/19/2006, Additional history exists CKD PHOS USE SMARTSET 32292 12/29/2018 04/01/2018, 08/26/2009, 08/25/2009, Additional history exists DIABETES-FOOT EXAM 12/29/2018 12/29/2017, 0 10/21/2016, 12/11/2015, Additional history exists CKD GFR USE SMARTSET 03839 03/27/201909/27, 08/01/2018, 06/27/2018, Additional history exists DIABETES-HGBA1C EVERY 6 MONTHS 03/27/2019 09/27/2018, 05/01/2018, 12/29/2017, Additional history exists Yearly B-12 05/16/2019 05/16/2018 CKD HGB USE SMARTSET 24360 06/06/201906/06, 06/05/2018, 12/26/2017, Additional history exists BREAST [...] For more information, please contact: [place] [phone] Latest Code Status on File Code Status [...]
--- OUTSIDE RECORDS SUMMARY | 2023-06-01 05:56 | External Medical Summary | Summary of Care ---
Author Name Unknown Organization [place] [address] Care Team Providers Care Face Man Name Role Phone Kevin Whiteside DO Primary Care Provider Reason for Visit * Reason Comments FYI Encounter Details Date Type Department Care Team Description 10/03/2018 Telephone Family Practice [facility] [address] [facility] [place] [address] Kevin [facility]ide DO [address] [facility] [address] FYI Allergies Active Allergy Reactions Severity Noted Date Comments Heparin 09/04/2009 Heparin Induced Thrombocytopenia Empagliflozin Other (Please comment) Medium 05/17/2018 3 yeast infections in 6 weeks after starting Morphine And Related 09/16/1997 Hallucinations Tetanus Toxoid Other (Please comment) 06/15/2011 Passed out as of this encounter Medications Medication Sig Dispensed Refills Start Date [...] 2 times a day. 0 06/10/2018 Active furosemide (LASIX) 40 MG TabletIndications:Ac ulysses diastolic congestive heart failure (HCC) Take 80mg 3 days per week and 40mg all other days 35 Tab 5 07/03/2018 Active cyclobenzaprine (FLEXERIL) 10 MG Tablet TAKE [...] Each 5 08/01/2018 Active ergocalciferol (VITAMIN D2,DRISDOL,) 24510 UNIT CapsuleIndications:V itamin D deficiency Take 1 [...] current use of insulin ([facility]) Take 1 Tab by mouth 3 times a day. 90 Tab 11 09/04/2018 Active clonazePAM (KLONOPIN) 0.5 MG TabletIndications:An xiety state TAKE ONE TABLET BY MOUTH TWICE DAILY 180 Tab 3 09/11/2018 Active mupirocin calcium (BACTROBAN) 2 % ointment Apply topically to affected area 3 times a day for 14 days. To affected area for up to 14 days. 22 g 1 09/27/2018 9 Active LORazepam (ATIVAN) 1 MG Tablet Take 1 Tab by mouth once as needed for Anxiety for up to 1 dose. Take 30-60 min before MRI 1 Tab 0 09/27/2018 Active as of this encounter Active Problems Problem Noted Date Impetigo 09/27/2018 [...] Taxonomy. Primary localized osteoarthrosis, lower leg 07/04/2008 as of this encounter Resolved Problems Problem Noted Date Resolved Date [...] Perforation of intestine 017 Overview: COLON Diverticulitis as of this encounter Immunizations Name Dates Previously Given Next Due Pneumococcal Polysaccharide PPV23 (Pneumovax) 08/22/2009,06/15/2006 Seasonal Influenza, Quadriva lent, No Preserve, 6 Mons & Above, IM 06/12/2018,07/14/2017 Seasonal Influenza, Quadriva lent, No Preserve, IM 06/24/2016,07/24/2015 Seasonal Influenza, Trivalen t, with Preserve, 3yr & Above, Split 06/13/2014,07/07/2012,06/28/2011,,08/01/2009,07/04/2008,2006,10/19/2006,08/07/2004, 2 Varicella Zoster Vaccine (Adult) 12/11/2015 as of this encounter Social History Tobacco Use Types Packs/Day Years Used Date Former Smoker 1 15 Quit: 08/26 Smokeless Tobacco: Never Used Alcohol Use Drinks/Week oz/Week Comments Yes rare Sex Assigned at Date Recorded Not on file Job Start Date Occupation Industry Not on file Not on file Not on file Travel History Travel Start Travel End as of this encounter Miscellaneous Notes * Telephone Encounter - Frances Nicholson RN - 10/03/2018 3:42 PM EST Spoke with pt Frances Nicholson RN, [facility] [employer] [phone] * Telephone Encounter - Sue Stoll LPN - 10/03/2018 1:51 PM EST Pt calling and would like to speak with you when you have a moment. She did not say why. Thank you in this encounter Plan of Treatment Upcoming Encounters Date Type Specialty Care Team Description 10/06/2018 [facility] [address] [phone] 10/23/2018 Office Visit Cardiology Marjorie Powell PA-C [address] [place] [address] [phone] 12/04/2018 Office Visit Family Medicine Kevin Whiteside DO [address] [place] [address] [phone] 01/24/2019 Office Visit Nephrology Gia White MD 21 [facility] [place] [address] [phone] 03/14/2019 Office Visit Cardiology Rye Woodall MD [address] [place] [address] [phone] 05/04/2019 Office Visit Sleep Disorders Celsa Tafoya CRNP 132 [facility] [place] [address] [phone] Health Maintenance Due Date Last Done Comments DIABETES-EYE EXAM 02/24/2011 02/24/2010 (Do ne elsewhere), 12/18/2009, 02/18/2008 (Done elsewhere) PAP SMEAR-EVERY 3 YRS,AGES 21-65 05/11/2016 05/11/2013, 03/01/2008, 10/19/2006, Additional history exists CKD PHOS USE SMARTSET 60108 12/29/2018 12/29/2017, 08/26/2009, 08/25/2009, Additional history exists DIABETES-FOOT EXAM 12/29/2018 12/29/2017, 0 10/21/2016, 12/11/2015, Additional history exists CKD GFR USE SMARTSET 05451 03/27/201909/27, 08/01/2018, 06/27/2018, Additional history exists DIABETES-HGBA1C EVERY 6 MONTHS 03/27/2019 09/27/2018, 05/01/2018, 12/29/2017, Additional history exists Yearly B-12 05/16/2019 05/16/2018 CKD HGB USE SMARTSET 61667 06/06/201906/06, 06/05/2018, 12/26/2017, Additional history exists BREAST CANCER SCREENING DISCUSSION YEARLY AGES 40-75 06/23/2019 06/23/2018, 05/09/2015, 07/12/2014, Additional history exists PNEUMOCOCCAL 19-64 MEDIUM RISK Completed 08/22/2009, 06/15/2006 *DEPRESSION SCREENING, ANNUAL FOR PTS 18 AND OVER Addressed 06/12/2018 Overridden wi th the intention of not completing the topic Influenza Vaccine (FLU shot) Completed 06/12/2018, 06/12/2018, 07/14/2017, Additional history exists as of this encounter Implants Not on fileas of this encounter Advance Directives Patient has advance care planning documents, and code status on file. For more information, please contact: [place] [phone] Latest Code Status on File Code Status [...]
--- OUTSIDE RECORDS SUMMARY | 2023-06-01 05:56 | External Medical Summary ---
Author Name Unknown Address 132 [facility] [place] [address] Phone Organization K0G:[facility] [place] [address] [facility] [place] [address] Laboratory Report Ordering Provider Test Date Status ARI CALDERON 10/26/2018 09:39:00 Final Observation Date Value Abnormality Reference Status BUN 10/26/2018 11:12 67 Above high normal 6-20 Final Creatinine 10/26/2018 11:12 2.3 Above high normal 0.5- 1.0 Final Performing Location [facility] [place] [address] [place] [address]
--- OUTSIDE RECORDS SUMMARY | 2023-06-01 05:56 | External Medical Summary ---
Author Name Unknown Address [address] [facility] [place] [address] Phone Organization [facility] [employer] [address] [facility] [place] [address] Laboratory Report Ordering Provider Test Date Status ARI CALDERON 10/30/2018 12:53:00 Final Observation Date Value Abnormality Reference Status BUN 10/30/2018 15:07 66 Above high normal 6-20 Final Creatinine 10/30/2018 15:07 1.7 Above high normal 0.5- 1.0 Final Performing Location [facility] [place] [address] [place] [address]
--- OUTSIDE RECORDS SUMMARY | 2023-06-01 05:56 | External Medical Summary | Summary of Care ---
Author Name Unknown Organization [place] [address] Care Team Providers Care Atomizer Assembler Name Role Phone Kevin Whiteside Primary Care Provider Reason for Visit * Reason Comments Follow Up Congestive Heart Failure Encounter Details Date Type Department Care Team Description 10/26/2018 Office Visit Cardiology, [facility] [address] [place] [place] [address] Marjorei Powell PA-C [address] [facility] [place] [address] [phone] Chronic diastolic congestive heart failure (HCC)*; Dyslipidemia, goal LDL below 100; Acute diastolic (congestive) heart failure (HCC); Dyslipidemia; ELISSA (obstructive sleep apnea); History of pulmonary embolus (PE); HTN, goal below 130/80 Allergies Active Allergy [...] Each 5 08/01/2018 Active ergocalciferol (VITAMIN D2,DRISDOL,) 68183 UNIT CapsuleIndications:V itamin D deficiency Take 1 [...] insulin ([facility]) Take 1 Tab by mouth 3 times [...] Vital Sign Reading Time Taken Blood Pressure 102/58 10/26/2018 9:18 AM EST Pulse 84 10/26/2018 9:18 AM EST Temperature - - Respiratory Rate 16 10/26/2018 9:18 AM EST Oxygen Saturation - - Inhaled Oxygen Concentration - - Weight 157.9 kg (348 lb) 10/26/2018 9:1 8 AM EST Height - - Body Mass Index 59.34 10/26/2018 9:18 AM EST documented in this encounter Progress Notes * Marjorie Powell PA-C - 10/26/2018 12:37 PM EST 10/26/2018 Cardiology F/U: HPI: Patient is a 63-year-old female here today for close cardiology follow-up. Last clinic visit approx 3 days ago when patient presented with concerns regarding worsening SOB, edema, and weight gain, suggestive of acute diastolic HF exacerbation. Furosemide was increased to 80 mg BID x3 days. She returns today for f/u. She is down approx 6 lbs and reports her SOB, edema and abdominal bloating have greatly improved. Urinating frequently. No chest pain. SOB at baseline. She did not have labs prior to appt as requested. History is very complex and includes: 1. Morbid obesity. 2. Obstructive sleep apnea on CPAP supplementation with nocturnal hypoxia on oxygen administration. 3. Hypertension. 4. Type 2 diabetes mellitus. 5. Chronic fibromyalgia. 6. History of bilateral pneumonia with extensive hospitalization in 2008 requiring extended intubation, Tuleta filter implantation with pulmonary embolus. 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 7. Hypertensive heart disease with diastolic HF. Review of Systems: See HPI for pertinent [...] pulmonary embolus (PE) Z86.711 Statin intolerance Z78.[address] Z95.828 Type 2 diabetes mellitus with hemoglobin A1c goal of 7.0%-8.0% ([facility]) E11.9 Fibromyalgia M79.7 Abnormality of gait R26.9 Restless legs syndrome G25.81 Gastroesophageal reflux disease with esophagitis K21.0 Uncontrolled type 2 diabetes mellitus with stage 3 chronic kidney disease, with long-term current use of insulin ([facility]) E11.22, E11.65, N18.3, Z79.4 Body mass index (BMI) of 50.0 to 59.9 in adult ([facility]) Z68.43 Controlled substance agreement signed Z79.899 Chronic diastolic congestive heart failure ([facility]) I50.32 Thoracic back pain M54.6 Mild episode of recurrent major depressive disorder ([facility]) F33.0 Impetigo L01.00 Lumbar radiculopathy M54.16 Review of patient's allergies indicates: Allergen Reactions Jardiance [Empagliflozin] Other (Please comment) 3 yeast infections in 6 weeks after starting Heparin Heparin Induced Thrombocytopenia Morphine And Related Hallucinations Tetanus Toxoid Other (Please comment) Passed out Outpatient Medications Marked as Taking for the 10/26/18 encounter (Office Visit) with Marjorie Powell PA-C Medication Sig furosemide (LASIX) 80 MG Tablet Take 1 Tab by mouth daily. Take an additional tablet as directed or needed for fluid retention clonazePAM (KLONOPIN) 0.5 MG Tablet TAKE ONE TABLET BY MOUTH TWICE DAILY Gabapentin (NEURONTIN) 600 MG Tablet Take 1 Tab by mouth 3 times a day. ACCU-CHEK SOFTCLIX LANCETS MISC Test sugar 3-4 [...] scale up to 100 units per day ergocalciferol (VITAMIN D2,DRISDOL,) 99245 UNIT Capsule Take 1 Cap by mouth once a week. cyclobenzaprine (FLEXERIL) 10 MG Tablet TAKE ONE TABLET BY MOUTH AT BEDTIME NEEDED FOR MUSCLE SPASM Glucose Blood (ONETOUCH ULTRA BLUE) STRP Check sugars 3-4 times daily Insulin Degludec (TRESIBA FLEXTOUCH) 200 UNIT/ML SOPN Inject up to 160 units daily as directed Insulin Pen Needle (BD PEN NEEDLE SHORT [...] mg under the skin daily. As directed lisinopril (PRINIVIL) 10 MG Tablet Take 0.5 Tabs by mouth daily. metoprolol tartrate (LOPRESSOR) 25 MG Tablet Take 2 Tabs by mouth 2 times a day. Nortriptyline HCl (PAMELOR) 50 MG Capsule Take 1 Cap by mouth at bedtime. ONETOUCH DELICA LANCETS 33G MISC Check blood sugars 3-4 times daily rOPINIRole (REQUIP) 1 MG Tablet Take 1 Tab by mouth at bedtime. sertraline (ZOLOFT) 100 MG Tablet TAKE ONE AND ONE-HALF TABLETS BY MOUTH DAILY MAG64 64 MG TBEC Take 64 mg by mouth 2 times a day. docusate sodium (STOOL SOFTENER) 100 MG Capsule Take 100 mg by mouth 2 times a day as needed for Constipation. oxygen GAS 4 LPM bled through CPAP 11 cwp during all periods of sleep. PRILOSEC 20 MG PO CPDR one tablet daily PHYSICAL EXAMINATION: BP 102/58 | Pulse 84 | Resp 16 | Wt 348 lbs (157.852kg) | BMI 59.34 kg/m | BSA 2.67 m | LMP 03/11/2003 Wt Readings from Last 3 Encounters: 10/26/18 (!) 157.9 kg (348 lb) 10/23/18 (!) 160.6 kg (354 lb) 09/27/18 (!) 156.9 kg (346 lb) GEN: A+O x3. NAD. Obese. HEENT [...] answering questions appropriately. DATA: Echocardiogram as described [facility] demonstrated hyperdynamic LV function. No valvular disease. No overt diastolic dysfunction. IMPRESSION: Complex 63-year-old female 1. chronic diastolic HF, symptoms improving with titration of diuretic. 2. History of hypertensive heart disease/diastolic dysfunction. 3. Morbid obesity - weight loss encouraged. 4. Chronic respiratory failure, hypoventilation syndrome. 5. Statin intolerance RECOMMENDATIONS: BMP requested today Reduce furosemide to 80 mg daily (this is still higher dose than previously alternating 40 mg with 80 mg). CHF tools discussed including daily weights, salt/sodium/fluid restriction, and use of diuretic protocol. She will continue all other meds as prescribed. She will call if symptoms worsen/fail to improve. Further recommendations pending review of lab work. The patient agrees to the above plan and will call with additional questions or concerns. ER with all emergencies advised. Check-out note: Blood work today; Keep appt as scheduled. Marjorie Powell PA-C Department of Cardiology This chart was completed in part utilizing [employer] Speech Voice Recognition Software. Grammatical errors, random [...] in this encounter Nursing Notes * Migdalia Grover RN - 10/26/2018 9:17 AM EST Examination Room: 1 Name: Stephanie Camp Date of : (1955). Reason for Visit: follow up chf Interim Hospitalization(s): no Problems/Concerns: PT states a little better with breathing and swelling. Pt down 6 lbs. Chest Pain/SOB: denies cp [facility] is a way you can talk to your provider online through e-mail. Would you like to sign up? I can activate it for you? DECLINES documented in this encounter Miscellaneous Notes * Result QuickNote - Marjorie Powell PA-C - 10/26/2018 12:53 PM EST Acute renal insufficiency after recent titration of diuretics due to volume overload. As we discussed at office visit, continue furosemide 80 mg for now (previously taking 80 BID). Repeat BMP early next week. documented in this encounter Plan of Treatment Upcoming Encounters Date Type Specialty Care Team Description 12/04/2018 Office Visit Family Medicine Kevin Whiteside DO [address] [address] [phone] 01/24/2019 Office Visit Nephrology Gia White MD [address] [place] [address] [phone] 03/14/2019 Office Visit Cardiology Rey Woodall MD [address] [address] [phone] 05/04/2019 Office Visit Sleep Disorders Celsa Tafoya CRNP [address] [place] [address] [phone] Health Maintenance Due Date Last Done Comments DIABETES-EYE EXAM 02/24/2011 02/24/2010 (Do ne elsewhere), 12/18/2009, 02/18/2008 (Done elsewhere) PAP SMEAR-EVERY 3 YRS,AGES 21-65 05/11/2016 05/11/2013, 03/01/2008, 10/19/2006, Additional history exists CKD PHOS USE SMARTSET 74665 12/29/2018 04/0 01/2018, 08/26/2009, 08/25/2009, Additional history exists DIABETES-FOOT EXAM 12/29/2018 12/29/2017, 0 10/21/2016, 12/11/2015, Additional history exists CKD GFR USE SMARTSET 68418 03/27/201909/27, 08/01/2018, 06/27/2018, Additional history exists DIABETES-HGBA1C EVERY 6 MONTHS 03/27/2019 09/27/2018, 05/01/2018, 12/29/2017, Additional history exists Yearly B-12 05/16/2019 05/16/2018 CKD HGB USE SMARTSET 05904 06/06/201906/06, 06/05/2018, 12/26/2017, Additional history exists BREAST [...] Procedure Name Priority Date/Time Associated Diagnosis Comments HEP FUNCTION PANEL Routine 10/26/2018 9: 39 AM EST Dyslipidemia, goal LDL below 100 BASIC METAB PANEL, BMP Routine 10/26/2018 9:39 AM EST Acute diastolic (congestive) heart failure (HCC) documented in this encounter Results * BASIC METAB PANEL, BMP (10/26/2018 9:39 AM EST) BUN 67(H) 6 - 20 mg/dL [facility] CREATININE 2.3(H) Comment: GFR should be used to assess renal function.Plasma/Serum creatinine may not be able to properly reflect renal function in some cases. 0.5 - 1.0 mg/dL [facility] E GLOM FILT RATE 22.1(L)Comment:If sandy witt is , multiply estimated GFR by 1.159. >60 [facility] SODIUM 138 135 - 146 mmol/L [facility] POTASSIUM 4.7 3.5 - 5.1 mmol/L [facility] CHLORIDE 95(L) 98 - 107 mmol/L [facility] CO2 24 22 - 32 mmol/L [facility] ANION GAP 19(H) 7 - 15 mmol/L [facility] GLUCOSE 272(H) 70 - 120 mg/dL [facility] CALCIUM 9.1 8.4 - 10.2 mg/dL [facility] Performing Organization Address [facility] e Phone Number [facility], [address] [place] [address] * HEP FUNCTION PANEL (10/26/2018 9:39 AM EST) ALBUMIN 3.9 3.8 - 5.0 g/dL [facility] AST 31 10 - 35 U/L [facility] ALKALINE PHOSPHATASE 83 0 - 153 U/L [facility] ALT 23 10 - 35 U/L [facility] BILIRUBIN, TOTAL 0.4 0 - 1.2 mg/dL [facility] BILIRUBIN, DIRECT <0.2 0 - 0.3 mg/dL [facility] PROTEIN 8.0 6.0 - 8.3 g/dL [facility] Performing Organization Address [facility] e Phone Number [facility], [address] [place] [address] documented in this encounter Visit Diagnoses Diagnosis Chronic diastolic congestive heart failure (HCC)- Primary Chronic diastolic heart failure Dyslipidemia, goal LDL below 100 Other and unspecified hyperlipidemia Acute diastolic (congestive) heart failure (HCC) Dyslipidemia Other and unspecified hyperlipidemia ELISSA (obstructive sleep apnea) Obstructive sleep apnea (adult) (pediatric) History of pulmonary embolus (PE) Personal history of pulmonary embolism HTN, goal below 130/80 Unspecified essential hypertension documented in this encounter Advance Directives Patient has advance care planning documents, and code status on file. For more information, please contact: [place] [phone] Latest Code Status on File Code Status [...]
--- OUTSIDE RECORDS SUMMARY | 2023-06-01 05:56 | External Medical Summary ---
Author Name Unknown Address [address] [facility] [place] [address] Phone Organization K0G:[facility] [employer] [address] [facility] [place]Bll [place] [address] Laboratory Report Ordering Provider Test Date Status CORETTA STERLING 11/06/2018 12:41:00 Final Observation Date Value Abnormality Reference Status BUN 11/06/2018 14:32 43 Above high normal 6-20 Final Creatinine 11/06/2018 14:32 1.5 Above high normal 0.5- 1.0 Final Performing Location [facility] [address] [place] [address]
--- OUTSIDE RECORDS SUMMARY | 2023-06-01 05:56 | External Medical Summary ---
Author Name Unknown Address [address] [facility] [place] [address] Phone Organization K0G:[facility] [address] [facility] [place] [address] Laboratory Report Ordering Provider Test Date Status ARI CALDERON 10/26/2018 09:39:00 Final Observation Date Value Abnormality Reference Status Albumin 10/26/2018 11:12 3.9 3.8-5.0 Fin al AST (Aspartate aminotransferase) 10/26/2018 11:12 31 10-35 Final Alk Phos 10/26/2018 11:12 83 0-153 Fin al ALT (Alanine aminotransferase) 10/26/2018 11:12 23 10-35 Final Bilirubin, Total 10/26/2018 11:12 0.4 0-1.2 Final Bilirubin, Direct 10/26/2018 11:12 <0.2 0-0.3 Final Protein 10/26/2018 11:12 8.0 6.0-8.3 Fin al Performing Location [facility] [address] [facility] [place] [address]
--- OUTSIDE RECORDS SUMMARY | 2023-06-01 05:56 | External Medical Summary | Summary of Care ---
Author Name Unknown Organization [place] [address] Care Team Providers Care Dressmaking Teacher Name Role Phone Kevin Whiteside DO Primary Care Provider Reason for Visit * Reason Comments Test Results Imaging Study Encounter Details Date Type Department Care Team Description 09/28/2018 Telephone Family Practice [facility] [address] [facility] [place] [address] Kevin Whiteside DO [address] [facility] [place] [address] Test Results Imaging Study Allergies Active Allergy Reactions Severity Noted Date [...] 06/10/2018 Active furosemide (LASIX) 40 MG TabletIndications:Ac mohegan diastolic congestive heart failure (HCC) Take 80mg [...] to 59.9 in adult ([facility]),Hypoxemia,ELISSA (obstructive sleep apnea),HTN, goal below 140/80 Take 2 Tabs by mouth 2 times a day. 360 Tab 3 08/01/2018 Active Glucose Blood (ONETOUCH ULTRA BLUE) STRP Check sugars 3-4 times daily 360 Strip 5 08/01/2018 Active ONETOUCH DELICA LANCETS 33G MISC Check blood sugars 3-4 times daily 180 Each 5 08/01/2018 Active ergocalciferol (VITAMIN D2,DRISDOL,) 14280 UNIT CapsuleIndications:V itamin D deficiency Take 1 [...] use of insulin ([facility]) Take 1 Tab by mouth 3 [...] 10/14/2014 Overview: ICD-10 update of inactive term Alta filter in place 08/19/2014 History of pulmonary [...] Telephone Encounter - Izabela Crump LPN - 09/28/2018 4:31 PM EST Pt aware and verbalized understanding. Pt requested a copy be sent to [facility] in [place]. Copy of results were faxed over as requested. * Telephone Encounter - Kevin Whiteside DO - 09/28/2018 3:55 PM EST Ok to relay results of MRI to patient. Would suggest continuing with physical therapy and gabapentin for the nerve impingement. Likely not a surgical candidate, but we can address in future if her pain is not manageable. No change in plan of care for now. IMPRESSION 1. Multilevel degenerative changes are noted throughout the lumbar spine, with moderate spinal canal stenosis present at L2-3 and L3-4. 2. Neural foraminal narrowing is most pronounced at L3-4 bilaterally, (moderate/severe). 3. There is moderate foraminal narrowing at L2-3, L4-5, L5-S1. in this encounter Plan of Treatment Upcoming Encounters Date Type Specialty Care Team Description 10/06/2018 Pharmacy Pharmacy [facility], [facility] [address] [facility], [place] [address] [phone] 10/23/2018 Office Visit Cardiology Marjorie Powell PA-C [address] [place] [address] [phone] 12/04/2018 Office Visit Family Medicine Kevin Whiteside DO [address] [place] [address] [phone] 01/24/2019 Office Visit Nephrology Gia White MD [address] [facility] [place] [address] [phone] 03/14/2019 Office Visit Cardiology Rey Woodall MD [address] [place] [address] [phone] 05/04/2019 Office Visit Sleep Disorders Celsa Tafoya CRNP [address] [place] [address] [phone] Health Maintenance Due Date Last Done Comments DIABETES-EYE EXAM 02/24/2011 02/24/2010 (Do ne elsewhere), 12/18/2009, 02/18/2008 (Done elsewhere) PAP SMEAR-EVERY 3 YRS,AGES 21-65 05/11/2016 05/11/2013, 03/01/2008, 10/19/2006, Additional history exists CKD PHOS USE SMARTSET 61580 12/29/2018 12/29/2017, 08/26/2009, 08/25/2009, Additional history exists DIABETES-FOOT EXAM 12/29/2018 12/29/2017, 0 10/21/2016, 12/11/2015, Additional history exists CKD GFR USE SMARTSET 97963 03/27/201909/27, 08/01/2018, 06/27/2018, Additional history exists DIABETES-HGBA1C EVERY 6 MONTHS 03/27/2019 09/27/2018, 05/01/2018, 12/29/2017, Additional history exists Yearly B-12 05/16/2019 05/16/2018 CKD HGB USE SMARTSET 43265 06/06/201906/06, 06/05/2018, 12/26/2017, Additional history exists BREAST [...] For more information, please contact: [place] [phone] Latest Code Status on File Code Status [...]
--- OUTSIDE RECORDS SUMMARY | 2023-06-01 05:56 | External Medical Summary | Summary of Care ---
Author Name Unknown Organization [place] [address] Care Team Providers Care Chinese Herbalist Name Role Phone Kevin Whiteside Primary Care Provider Reason for Visit * Reason Comments Appointment Encounter Details Date Type Department Care Team Description 10/10/2018 Pharmacy Pharmacy, [facility] [address] [place] [address] Sp, [facility] [address] [facility] [place], [place] [id number] Uncontrolled type 2 diabetes mellitus with stage 3 chronic kidney disease, with long-term current use of insulin ([facility])*; Type 2 diabetes mellitus with hemoglobin A1c goal of 7.0%-8.0% ([facility]) Allergies Active Allergy Reactions Severity Noted [...] Each 5 08/01/2018 Active ergocalciferol (VITAMIN D2,DRISDOL,) 89881 UNIT CapsuleIndications:V itamin D deficiency Take 1 [...] of insulin ([facility]) Take 1 Tab by mouth 3 [...] Start Travel End as of this encounter Progress Notes * Mar Simeon, ELISSA - 10/10/2018 2:11 PM EST [facility] spoke to patient -rescheduled a 2 month review on 10/25 in the afternoon.,patient acknowledged. in this encounter Plan of Treatment Upcoming Encounters Date Type Specialty Care Team Description 10/10/2018 Pharmacy Pharmacy , [facility] [address] [facility] [place] [address] [phone] Uncontrolled type 2 diabetes mellitus with stage 3 chronic kidney disease, with long-term current use of insulin (HCC)*; Type 2 diabetes mellitus with hemoglobin A1c goal of 7.0%-8.0% (HCC) 10/23/2018 Office Visit Cardiology Marjorie Powell PA-C [address] [place] [address] [phone] 10/25/2018 Pharmacy Pharmacy , [facility] [address] [place] [address] [phone] 12/04/2018 Office Visit Family Medicine Kevin Whiteside DO [address] [place] [address] [address] [phone] 01/24/2019 Office Visit Nephrology Gia White MD [address] [place] [address] [phone] 03/14/2019 Office Visit Cardiology Rey Woodall MD [address] [place] [address] [address] [phone] 05/04/2019 Office Visit Sleep Disorders Celsa Tafoya CRNP [address] [place] [address] [phone] Health Maintenance Due Date Last Done Comments DIABETES-EYE EXAM 02/24/2011 02/24/2010 (Do ne elsewhere), 12/18/2009, 02/18/2008 (Done elsewhere) PAP SMEAR-EVERY 3 YRS,AGES 21-65 05/11/2016 05/11/2013, 03/01/2008, 10/19/2006, Additional history exists CKD PHOS USE SMARTSET 90253 12/29/2018 12/29/2017, 08/26/2009, 08/25/2009, Additional history exists DIABETES-FOOT EXAM 12/29/2018 12/29/2017, 0 10/21/2016, 12/11/2015, Additional history exists CKD GFR USE SMARTSET 71016 03/27/201909/27, 08/01/2018, 06/27/2018, Additional history exists DIABETES-HGBA1C EVERY 6 MONTHS 03/27/2019 09/27/2018, 05/01/2018, 12/29/2017, Additional history exists Yearly B-12 05/16/2019 05/16/2018 CKD HGB USE SMARTSET 04791 06/06/201906/06, 06/05/2018, 12/26/2017, Additional history exists BREAST [...] Implants Not on fileas of this encounter Visit Diagnoses Diagnosis Uncontrolled type 2 diabetes mellitus with stage 3 chronic kidney disease, with long-term current use of insulin (HCC)- Primary Type 2 diabetes mellitus with hemoglobin A1c goal of 7.0%-8.0% (HCC) in this encounter Advance Directives Patient has advance care planning documents, and code status on file. For more information, please contact: [place] [phone] Latest Code Status on File Code Status [...]
--- OUTSIDE RECORDS SUMMARY | 2023-06-01 05:56 | External Medical Summary | Summary of Care ---
Author Name Unknown Organization [place] [address] Care Team Providers Care Black Top Spreader Machine Operator Name Role Phone Kevin Whiteside Primary Care Provider Reason for Visit * Reason Comments Test Results Encounter Details Date Type Department Care Team Description 10/30/2018 Telephone Cardiology, [facility] [address] [place] [address] Michael Saenz PA-C [address] [facility] [place] [address] [phone] Test Results Allergies Active Allergy Reactions Severity Noted Date Comments Heparin 09/04/2009 Heparin Induced Thrombocytopenia Empagliflozin Other (Please comment) Medium 05/17/2018 3 yeast infections in 6 weeks after starting Morphine And Related 09/16/1997 Hallucinations Tetanus Toxoid Other (Please comment) 06/15/2011 Passed out documented as of this encounter (statuses as of 10/30/2018) Medications Medication Sig Dispensed Refills Start Date [...] at bedtime. 90 Tab 4 8 Active sertraline (ZOLOFT) 100 MG TabletIndications:D epression with anxiety TAKE ONE AND ONE-HALF TABLETS BY MOUTH DAILY 135 Tab 1 8 Active metoprolol tartrate (LOPRESSOR) 25 MG [...] Each 5 8 Active ergocalciferol (VITAMIN D2,DRISDOL,) 58762 UNIT CapsuleIndications: Vitamin D deficiency Take 1 [...] mouth daily. 31 Tab 5 9 Active lisinopril (PRINIVIL) 10 MG TabletIndications:H TN, goal below 140/80,Acute diastolic congestive heart failure (HCC),Body mass index (BMI) of 50.0 to 59.9 in adult (HCC),Hypoxemia,ELISSA (obstructive sleep apnea),HTN, goal below 130/80 Take 0.5 Tabs by mouth daily. 90 Tab 3 8 10/30/19 19 Discontinued documented as of this encounter (statuses as of 10/30/2018) Active Problems Problem Noted Date Impetigo 09/27/2018 [...] as of this encounter (statuses as of 10/30/2018) Resolved Problems Problem Noted Date Resolved Date [...] as of this encounter (statuses as of 10/30/2018) Immunizations Name Dates Previously Given Next Due [...] Miscellaneous Notes * Telephone Encounter - Tasha Cartwright RN - 10/30/2018 3:58 PM EST Called, spoke with patient. Patient verbalizing understanding of given results/instruction per message below and will comply. Denies use of potassium supplement, salt substitutes, or regular NSAID use. Verbalizing understanding of lisinopril instruction, new dosage pended. Lab order also pended. * Telephone Encounter - Tasha Cartwright RN - 10/30/2018 3:54 PM EST ----- Message from Michael Saenz PA-C sent at 10/30/2018 3:33 PM EST ----- Inbasket coverage for Mrs. Andre PA-C. Improved renal dysfunction following reduction in furosemidedosing. Mild hyperkalemia observed. Please make sure the patient is not taking supplemental potassium, OTC potassium, salt substitutes or NSAID's. Hold lisinopril x3 days then resume at the reduced dosing of 2.5 mg/day. Repeat PRP in 7 days. documented in this encounter Plan of Treatment Upcoming Encounters Date Type Specialty Care Team Description 12/04/2018 Office Visit Family Medicine Kevin Whiteside DO [address] [place] [address] [phone] 01/24/2019 Office Visit Nephrology Gia White MD [address] [facility] [place] [address] [phone] 03/14/2019 Office Visit Cardiology Rey Woodall MD 132 [facility] [place] [address] [phone] 05/04/2019 Office Visit Sleep Disorders Celsa Tafoya CRNP [address] [place] [address] [phone] Scheduled Tests Name Priority Associated Diagnoses Order S chedule BASIC METAB PANEL, BMP Routine Hyperkalemia Expected: 11/06/2018 (Approximate), Expires: 11/28/2019 Health Maintenance Due Date Last Done Comments DIABETES-EYE EXAM 02/24/2011 02/24/2010 (Do ne elsewhere), 12/18/2009, 02/18/2008 (Done elsewhere) PAP SMEAR-EVERY 3 YRS,AGES 21-65 05/11/2016 05/11/2013, 03/01/2008, 10/19/2006, Additional history exists CKD PHOS USE SMARTSET 05249 12/29/2018 04/0 01/2018, 08/26/2009, 08/25/2009, Additional history exists DIABETES-FOOT EXAM 12/29/2018 12/29/2017, 0 10/21/2016, 12/11/2015, Additional history exists DIABETES-HGBA1C EVERY 6 MONTHS 03/27/2019 09/27/2018, 05/01/2018, 12/29/2017, Additional history exists CKD GFR USE SMARTSET 38546 04/25/201910/26, 09/27/2018, 08/01/2018, Additional history exists Yearly B-12 05/16/2019 05/16/2018 CKD HGB USE SMARTSET 00869 06/06/201906/06, 06/05/2018, 12/26/2017, Additional history exists BREAST [...] as of this encounter Visit Diagnoses Diagnosis Hyperkalemia- Primary Hyperpotassemia HTN, goal below 140/80 Unspecified essential hypertension [...] For more information, please contact: [place] [phone] Latest Code Status on File Code Status [...]
--- OUTSIDE RECORDS SUMMARY | 2023-06-01 05:56 | External Medical Summary | Summary of Care ---
Author Name Unknown Organization [place] [address] Care Team Providers Care Canning Machine Operator Name Role Phone Kevin Whiteside Primary Care Provider Reason for Visit * Reason Comments Follow Up Encounter Details Date Type Department Care Team Description 10/23/2018 Office Visit Cardiology, [facility] [address] [place] [address] Marjorie Powell PA-C [address] [facility] [place] [address] [phone] Acute diastolic (congestive) heart failure (HCC)*; Statin intolerance; ELISSA (obstructive sleep apnea); HTN, goal below 140/90 Allergies Active Allergy Reactions Severity Noted Date Comments Heparin 09/04/2009 Heparin Induced Thrombocytopenia Empagliflozin Other (Please comment) Medium 05/17/2018 3 yeast infections in 6 weeks after starting Morphine And Related 09/16/1997 Hallucinations Tetanus Toxoid Other (Please comment) 06/15/2011 Passed out documented as of this encounter (statuses as of 10/23/2018) Medications Medication Sig Dispensed Refills Start Date [...] 2 times a day. 0 8 Active furosemide (LASIX) 40 MG TabletIndications:A cute diastolic congestive heart failure (HCC) Take 80mg 3 days per week and 40mg all other days 35 Tab 5 8 Active cyclobenzaprine (FLEXERIL) 10 MG Tablet [...] Pen Syringe Dosing Unit 11 8 Active lisinopril (PRINIVIL) 10 MG TabletIndications:H TN, goal below 140/80,Acute diastolic congestive heart failure (HCC),Body mass index (BMI) of 50.0 to 59.9 in adult (HCC),Hypoxemia,ELISSA (obstructive sleep apnea),HTN, goal below 130/80 Take 0.5 Tabs by mouth daily. 90 Tab 3 8 Active Nortriptyline HCl (PAMELOR) 50 MG [...] Each 5 8 Active ergocalciferol (VITAMIN D2,DRISDOL,) 19290 UNIT CapsuleIndications: Vitamin D deficiency Take 1 [...] TWICE DAILY 180 Tab 3 8 Active LORazepam (ATIVAN) 1 MG Tablet Take 1 Tab by mouth once as needed for Anxiety for up to 1 dose. Take 30-60 min before MRI 1 Tab 0 9 10/23/19 19 Discontinued documented as of this encounter (statuses as of 10/23/2018) Active Problems Problem Noted Date Impetigo 09/27/2018 [...] as of this encounter (statuses as of 10/23/2018) Resolved Problems Problem Noted Date Resolved Date [...] as of this encounter (statuses as of 10/23/2018) Immunizations Name Dates Previously Given Next Due [...] Vital Sign Reading Time Taken Blood Pressure 138/70 10/23/2018 2:03 PM EST Pulse 94 10/23/2018 2:03 PM EST Temperature - - Respiratory Rate 18 10/23/2018 2:03 PM EST Oxygen Saturation 93% 10/23/2018 2:0 3 PM EST Inhaled Oxygen Concentration - - Weight 160.6 kg (354 lb) 10/23/2018 2:0 3 PM EST Height - - Body Mass Index 60.37 10/23/2018 2:03 PM EST documented in this encounter Progress Notes * Marjorie Powell PA-C - 10/23/2018 2:09 PM EST 10/23/2018 Cardiology F/U: HPI: Patient is a 63-year-old female here today for routine cardiology follow- up. Last clinic evaluation in June 2018 with the undersigned. Primary stapler hand is Dr. Woodall. History is very complex and includes: 1. [...] Hypertensive heart disease with diastolic HF. Patient presents today feeling poorly. She reports increased SOB over the last few days with associated 10 lb weight gain and increased abdominal bloating. No chest pain. No dizziness. Reports dietary indiscretion with high sodium foods. Symptoms began to worsen on Tuesday. She typically ranges 345 in weight. Today she is 354. She is up approx 16 lbs since visit in June. No palpitations, dizziness, syncope or near syncope. No fever, chills, cough, hematochezia, melena,or hemoptysis. Gabapentin dose was increased in August, but she denies acute worsening symptoms until this past weekend. Review of Systems: See HPI for pertinent [...] of 7.0%-8.0% ([facility]) E11.9 Fibromyalgia M79.7 Abnormality of gait R26.9 Restless legs syndrome G25.81 Gastroesophageal reflux disease with esophagitis K21.0 Uncontrolled type 2 diabetes mellitus with stage 3 chronic kidney disease, with long-term current use of insulin ([facility]) E11.22, E11.65, N18.3, Z79.4 Body mass index (BMI) of 50.0 to 59.9 in adult ([facility]) Z68.43 Controlled substance agreement signed Z79.899 Chronic diastolic congestive heart failure ([facility]) I50.32 Thoracic back pain M54.6 Mild episode of recurrent major depressive disorder ([facility]) F33.0 Impetigo L01.00 Lumbar radiculopathy M54.16 Review of patient's allergies indicates: Allergen Reactions Jardiance [Empagliflozin] Other (Please comment) 3 yeast infections in 6 weeks after starting Heparin Heparin Induced Thrombocytopenia Morphine And Related Hallucinations Tetanus Toxoid Other (Please comment) Passed out Outpatient Medications Marked as Taking for the 10/23/18 encounter (Office Visit) with Marjorie Powell PA-C Medication Sig clonazePAM (KLONOPIN) 0.5 MG Tablet [...] 100 units per day ergocalciferol (VITAMIN D2,DRISDOL,) 62080 UNIT Capsule Take 1 Cap by mouth [...] ONE AND ONE-HALF TABLETS BY MOUTH DAILY furosemide (LASIX) 40 MG Tablet Take 80mg 3 days per week and 40mg all other days MAG64 64 MG TBEC Take 64 mg by mouth 2 times a day. docusate sodium (STOOL SOFTENER) 100 MG Capsule Take 100 mg by mouth 2 times a day as needed for Constipation. oxygen GAS 4 LPM bled through CPAP 11 cwp during all periods of sleep. PRILOSEC 20 MG PO CPDR one tablet daily PHYSICAL EXAMINATION: BP 138/70 | Pulse 94 | Resp 18 | Wt 354 lbs (160.573kg) | BMI 60.37 kg/m | BSA 2.7 m | SaO2 93%| LMP 03/11/2003 Wt Readings from Last 3 Encounters: 10/23/18 (!) 160.6 kg (354 lb) 09/27/18 (!) 156.9 kg (346 lb) 09/04/18 (!) 154.2 kg (340 lb) GEN: A+O x3. NAD. Obese. HEENT [...] is obese, soft with large panniculus. Extremities reveal chronic stasis changes, with 1 to 2+ lower extremity edema. Neurologically, patient is answering questions appropriately. DATA: Recent BMP reviewed from several weeks ago - stable Echocardiogram as described [facility] demonstrated hyperdynamic LV function. No valvular disease. No overt diastolic dysfunction. IMPRESSION: Complex 63-year-old female 1. Acute on chronic diastolic HF exacerbation with evidence of volume overload, 10 lb weight gain over the last few days. 2. History of hypertensive heart disease/diastolic dysfunction. 3. Morbid obesity - weight loss encouraged. 4. Chronic respiratory failure, hypoventilation syndrome. 5. Statin intolerance RECOMMENDATIONS: Options discussed.d Patient previously responded well to IV furosemide in the [place] ER. She does not wish to have dose today. Will try increasing oral diuretics to furosemide 80 mg BID x days, then 80 mg daily. BMP on Tuesday or . If no improvement, consider IV furosemide at f/u. ER with worsening symptoms. Continue all other meds as listed above. CHF tools discussed including daily weights, salt/sodium/fluid restriction, and use of diuretic protocol. The patient agrees to the above plan and will call with additional questions or concerns. ER with all emergencies advised. Follow-up: Return in about 3 days (around 10/26/2018). | Check-out note: Overbook noon on Marjorie Powell PA-C Department of Cardiology This chart was completed in part utilizing [employer] Speech Voice Recognition Software. Grammatical errors, random [...] documented in this encounter Nursing Notes * Tasha Cartwright RN - 10/23/2018 2:05 PM EST Examination Room: 6 Name: Stephanie Camp Date of : (1955). Reason for Visit: Follow up Interim Hospitalization(s): No Problems/Concerns: Does not increase shortness of breath and weight gain today. Noted weight and breathing worsening yesterday. Did take 80mg furosemide today as planned. Swelling noted to bilateral lower extremities. Chest Pain/SOB: Denies chest pain/discomfort. [facility] is a way you can talk to your provider online through e-mail. Would you like to sign up? I can activate it for you? DECLINES documented in this encounter Plan of Treatment Upcoming Encounters Date Type Specialty Care Team Description 10/25/2018 Pharmacy Pharmacy , [facility] [address] [facility] [place], [place] [address] [phone] 10/26/2018 Office Visit Cardiology Marjorie Powell PA-C [address] [facility] [place] [address] [phone] 12/04/2018 Office Visit Family Medicine Kevin Whiteside DO [address] [facility] [place] [address] [phone] 01/24/2019 Office Visit Nephrology Gia White MD 21 [facility] [place] [id number] 03/14/2019 Office Visit Cardiology Rey Woodall MD [address] [facility] [place] [address] [phone] 05/04/2019 Office Visit Sleep Disorders Celsa Tafoya CRNP [address] [facility] [place] [address] [phone] Scheduled Tests Name Priority Associated Diagnoses Order S chedule BASIC METAB PANEL, BMP Routine Acute diastolic (congestive) heart failure (HCC) Expected: 10/25/2018, Expires: 11/23/2018 Health Maintenance Due Date Last Done Comments DIABETES-EYE EXAM 02/24/2011 02/24/2010 (Do ne elsewhere), 12/18/2009, 02/18/2008 (Done elsewhere) PAP SMEAR-EVERY 3 YRS,AGES 21-65 05/11/2016 05/11/2013, 03/01/2008, 10/19/2006, Additional history exists CKD PHOS USE SMARTSET 67435 12/29/2018 04/0 01/2018, 08/26/2009, 08/25/2009, Additional history exists DIABETES-FOOT EXAM 12/29/2018 12/29/2017, 0 10/21/2016, 12/11/2015, Additional history exists CKD GFR USE SMARTSET 77186 03/27/201909/27, 08/01/2018, 06/27/2018, Additional history exists DIABETES-HGBA1C EVERY 6 MONTHS 03/27/2019 09/27/2018, 05/01/2018, 12/29/2017, Additional history exists Yearly B-12 05/16/2019 05/16/2018 CKD HGB USE SMARTSET 32349 06/06/201906/06, 06/05/2018, 12/26/2017, Additional history exists BREAST [...] this encounter Visit Diagnoses Diagnosis Acute diastolic (congestive) heart failure (HCC)- Primary Statin intolerance Other drug allergy ELISSA (obstructive sleep apnea) Obstructive sleep apnea (adult) (pediatric) HTN, goal below 140/90 Unspecified essential hypertension documented in this encounter Advance Directives Patient has advance care planning documents, and code status on file. For more information, please contact: [place] [phone] Latest Code Status on File Code Status [...]
--- OUTSIDE RECORDS SUMMARY | 2023-06-01 05:56 | External Medical Summary | Summary of Care ---
Author Name Unknown Organization [place] [address] Care Team Providers Care Corporate Director Of Human Resources Name Role Phone Kevin Whiteside Primary Care Provider Reason for Referral * Precert (Routine) Status Reason Specialty Diagnoses / Procedures Referred By Contact Referred To Contact Pending Review Precert Sleep Disorders Diagnoses ELISSA (obstructive sleep apnea) Hypoxemia Procedures SLEEP STUDY, W/ CPAP (TREATMENT SETTINGS) Celsa Tafoya CRNP [address] [facility] [place] [address] Reason for Visit * Reason Comments FYI Encounter Details Date Type Department Care Team Description 11/07/2018 Telephone Sleep Disorders, [facility] [address] [place] [address] [facility] [place] [address] [phone] FYI Allergies Active Allergy Reactions Severity Noted Date Comments Heparin 09/04/2009 Heparin Induced Thrombocytopenia Empagliflozin Other (Please comment) Medium 05/17/2018 3 yeast infections in 6 weeks after starting Morphine And Related 09/16/1997 Hallucinations Tetanus Toxoid Other (Please comment) 06/15/2011 Passed out documented as of this encounter (statuses as of 11/08/2018) Medications Medication Sig Dispensed Refills Start Date [...] Each 5 08/01/2018 Active ergocalciferol (VITAMIN D2,DRISDOL,) 52918 UNIT CapsuleIndications:V itamin D deficiency Take 1 [...] 09/11/2018 Active furosemide (LASIX) 80 MG TabletIndications:Ac [place] diastolic congestive heart failure (HCC) Take 1 [...] as of this encounter (statuses as of 11/08/2018) Active Problems Problem Noted Date Impetigo 09/27/2018 [...] as of this encounter (statuses as of 11/08/2018) Resolved Problems Problem Noted Date Resolved Date [...] as of this encounter (statuses as of 11/08/2018) Immunizations Name Dates Previously Given Next Due [...] Telephone Encounter - Rema Barroso OSA - 11/08/2018 2:05 PM EST Swp. Titration sleep study @ [facility] 12/25/18 Follow up @ 01/11 * Telephone Encounter - Celsa Tafoya CRNP - 11/07/2018 4:06 PM EST Please arrange titration study for qualification of oxygen. Return visit within 30 days per Medicare. Thanks * Telephone Encounter - Anne Mayes CMA - 11/07/2018 3:11 PM EST Myriam from [facility] states patient is now medicare and will need to have a titration study done to qualify for oxygen. documented in this encounter Plan of Treatment Upcoming Encounters Date Type Specialty Care Team Description 11/10/2018 Pharmacy Pharmacy [facility] [address] [place] [address] [phone] 11/14/2018 Office Visit Family Medicine Kevin Whiteside, DO [address] [facility] [place] [address] [phone] 12/04/2018 Office Visit Family Medicine [facility]ide, DO [facility] [place] [address] [phone] 12/25/2018 Office Visit Sleep Disorders Paige Patel MD [address] [place] [address] 01/11/2019 Office Visit Sleep Disorders Celsa Tafoya CRNP [address] [facility] [place] [address] [phone] 01/24/2019 Office Visit Nephrology Gia White MD [address] [place] [phone] 03/14/2019 Office Visit Cardiology Rey Woodall MD [address] [facility] [place] [address] [phone] 05/04/2019 Office Visit Sleep Disorders Celsa Tafoya CRNP [address] [facility] [place] [address] [phone] Pending Results Name Priority Associated Diagnoses Date/Ti me SLEEP STUDY, W/ CPAP (TREATMENT SETTINGS) Routine ELISSA (obstructive sleep apnea) Hypoxemia 11/08/2018 Health Maintenance Due Date Last Done Comments DIABETES-EYE EXAM 02/24/2011 02/24/2010 (Do ne elsewhere), 12/18/2009, 02/18/2008 (Done elsewhere) PAP SMEAR-EVERY 3 YRS,AGES 21-65 05/11/2016 05/11/2013, 03/01/2008, 10/19/2006, Additional history exists CKD PHOS USE SMARTSET 12723 12/29/2018 04/0 01/2018, 08/26/2009, 08/25/2009, Additional history exists DIABETES-FOOT EXAM 12/29/2018 12/29/2017, 0 10/21/2016, 12/11/2015, Additional history exists DIABETES-HGBA1C EVERY 6 MONTHS 03/27/2019 09/27/2018, 05/01/2018, 12/29/2017, Additional history exists CKD GFR USE SMARTSET 10962 05/06/201911/06, 10/30/2018, 10/26/2018, Additional history exists Yearly B-12 05/16/2019 05/16/2018 CKD HGB USE SMARTSET 96285 06/06/201906/06, 06/05/2018, 12/26/2017, Additional history exists BREAST [...] apnea)- Primary Obstructive sleep apnea (adult) (pediatric) Hypoxemia documented in this encounter Advance Directives Patient has advance care planning documents, and code status on file. For more information, please contact: [place] [phone] Latest Code Status on File Code Status [...]
--- OUTSIDE RECORDS SUMMARY | 2023-06-01 05:56 | External Medical Summary | Summary of Care ---
Author Name Unknown Organization [place] [address] Care Team Providers Care Waste Management Recycling Technician Name Role Phone Kevin Whiteside Primary Care Provider Reason for Visit * Reason Comments Follow Up Encounter Details Date Type Department Care Team Description 10/23/2018 Office Visit Cardiology, [facility] [address] [place] [address] Kvng Chapman PA-C [address] [facility] [place] [address] [phone] Acute diastolic (congestive) heart failure (HCC)*; Statin intolerance; ELISSA (obstructive sleep apnea); HTN, goal below 140/90; Acute diastolic congestive heart failure (HCC) Allergies Active [...] Each 5 8 Active ergocalciferol (VITAMIN D2,DRISDOL,) 17143 UNIT CapsuleIndications: Vitamin D deficiency Take 1 [...] fluid retention 60 Tab 3 9 Active furosemide (LASIX) 40 MG TabletIndications:A cute diastolic congestive heart failure (HCC) Take 80mg 3 days per week and 40mg all other days 35 Tab 5 8 10/23/19 19 Discontinued LORazepam (ATIVAN) 1 MG Tablet Take 1 [...] 10/14/2014 Overview: ICD-10 update of inactive term [place] filter in place 08/19/2014 History of pulmonary [...] documented in this encounter Progress Notes * Kvng Chapman PA-C - 10/23/2018 2:09 PM EST 10/23/2018 Cardiology F/U: HPI: Patient is a 63-year-old female here today for routine cardiology follow- up. Last clinic evaluation in June 2018 with the undersigned. Primary forest fire fighter is Dr. Woodall. History is very complex and includes: 1. Morbid obesity. 2. Obstructive sleep apnea on CPAP supplementation with nocturnal hypoxia on oxygen administration. 3. Hypertension. 4. Type 2 diabetes mellitus. 5. Chronic fibromyalgia. 6. History of bilateral pneumonia with extensive hospitalization in 2008 requiring extended intubation, [place] filter implantation with pulmonary embolus. Course complicated [...] pulmonary embolus (PE) Z86.711 Statin intolerance Z78.[address] Z95.828 Type 2 diabetes [...] for the 10/23/18 encounter (Office Visit) with Kvng Chapman PA-C Medication Sig clonazePAM (KLONOPIN) 0.5 MG [...] 100 units per day ergocalciferol (VITAMIN D2,DRISDOL,) 13616 UNIT Capsule Take 1 Cap by mouth [...] weeks ago - stable Echocardiogram as described [facility] demonstrated hyperdynamic LV function. No valvular [...] responded well to IV furosemide in the [place]. She does not wish to have [...] 10/26/2018). | Check-out note: Overbook noon on Kvng Chapman PA-C Department of Cardiology This chart was completed in part utilizing [employer] Speech Voice Recognition Software. Grammatical errors, random [...] encounter Miscellaneous Notes * Addendum Note - Kvng Chapman PA-C - 10/23/2018 4:54 PM EST Addended by: KVNG CHAPMAN on: 10/23/2018 04:54 PM Modules accepted: Orders documented in this encounter Plan of Treatment Upcoming Encounters Date Type Specialty Care Team Description 10/25/2018 [facility] [address] [phone] 10/26/2018 Office Visit Cardiology Kvng Chapman PA-C [address] [facility] [place] [address] [phone] 12/04/2018 Office Visit Family Medicine Kevin Whiteside DO [address] [facility] [place] [address] [phone] 01/24/2019 Office Visit Nephrology Gia White MD [address] [facility] [place] [address] 03/14/2019 Office Visit Cardiology Rey Woodall MD [address] [facility] [place] [address] [phone] 05/04/2019 Office Visit Sleep Disorders Celsa Tafoya CRNP [address] [facility] [place] [address] [phone] Scheduled Tests Name Priority Associated Diagnoses Order S chedule BASIC METAB PANEL, BMP Routine Acute diastolic (congestive) heart failure (HCC) Expected: 10/25/2018, Expires: 11/23/2018 Health Maintenance Due Date Last Done Comments DIABETES-EYE EXAM 02/24/2011 02/24/2010 (Do ne elsewhere), 12/18/2009, 02/18/2008 (Done elsewhere) PAP SMEAR-EVERY 3 YRS,AGES 21-65 05/11/2016 05/11/2013, 03/01/2008, 10/19/2006, Additional history exists CKD PHOS USE SMARTSET 81545 12/29/2018 04/0 01/2018, 08/26/2009, 08/25/2009, Additional history exists DIABETES-FOOT EXAM 12/29/2018 12/29/2017, 0 10/21/2016, 12/11/2015, Additional history exists CKD GFR USE SMARTSET 55787 03/27/201909/27, 08/01/2018, 06/27/2018, Additional history exists DIABETES-HGBA1C EVERY 6 MONTHS 03/27/2019 09/27/2018, 05/01/2018, 12/29/2017, Additional history exists Yearly B-12 05/16/2019 05/16/2018 CKD HGB USE SMARTSET 20201 06/06/201906/06, 06/05/2018, 12/26/2017, Additional history exists BREAST [...] HTN, goal below 140/90 Unspecified essential hypertension Acute diastolic congestive heart failure (HCC) Acute diastolic heart failure documented in this encounter Advance Directives Patient has advance care planning documents, and code status on file. For more information, please contact: [place] [phone] Latest Code Status on File Code Status [...]
--- OUTSIDE RECORDS SUMMARY | 2023-06-01 05:56 | External Medical Summary | Summary of Care ---
Author Name Unknown Organization [place] [address] Care Team Providers Care Industrial Economist Name Role Phone Kevin Whiteside Primary Care Provider Encounter Details Date Type Department Care Team Description 10/03/2018 Electronic [facility]ist[facility] [address] [address] Frances Nicholson RN [address] [place] [address] Acute diastolic congestive heart failure (HCC)*; HF (heart failure) (HCC); Uncontrolled type 2 diabetes mellitus with stage 3 chronic kidney disease, with long-term current use of insulin (HCC) Allergies Active Allergy Reactions Severity Noted [...] 06/10/2018 Active furosemide (LASIX) 40 MG TabletIndications:Ac gambell diastolic congestive heart failure (HCC) Take 80mg [...] Each 5 08/01/2018 Active ergocalciferol (VITAMIN D2,DRISDOL,) 50117 UNIT CapsuleIndications:V itamin D deficiency Take 1 [...] of insulin ([facility]) Take 1 Tab by mouth 3 times [...] 10/14/2014 Overview: ICD-10 update of inactive term [place] filter in place 08/19/2014 History of pulmonary [...] Progress Notes * Frances Nicholson RN - 10/03/2018 4:00 PM EST PMH: DM, HTN, SOA with CPAP, history of PE, zoraida filter in place, dyslipidemia-statin intol, GERD, Fibromyalgia, depression/anxiety New-acute diastolic HF and ELSIE sent from PCP office abnormal labs and shortness of breath. x-ray concerning for atypical pneumonia 06/06/18-[facility] admit Acute respiratory failure with hypoxia and [...] 343 on d/c 06/10/18 d/c from [facility] new on Lasix, potassium and Mg Stopped Metformin and HCTZ Case Management Assessment/GOALS Is this call for a hospital, longterm or rehab facility discharge to home? No S: Reports:Pt reports that she has had a lot of stress over the insurance stuff, but will now have Medicare, but has lost her GHP Family insurance and now the [employer] cannot work with her. Says that The [employer] was helping with finding affordable housing as her rent is going up over 900$/mo. Says she has a lease until 03/25. Reports that her BS are up and down due to the stress, but had HbA1C doneand it is getting better. Reports that her breathing and fluid has been stable with her weight running 244-246 daily Weight gain: Denies Weight stable at 244-246 lbs Increased edema: denies Chest pain denies Increased shortness of breath: denies Chills / Sweats / Fever: denies chills/sweats and denies fever Fall: denies any falls since last Care Management encounter Appetite: denies nausea, vomiting, burning, decreased appetite Bowel: denies problems Bladder: denies problems Medications: takes all medications as prescribed. Chronic Pain: chronic pain from fibromyalgia Does Patient have Type 2 DM ? [...] 70 mg/dL? Never O: Phone visit for GOALS. Medications: takes all medications as prescribed. A: Patient Centered Prioritized Goals: pt will verbalize s/s needing reported to Dr/CM. Pt will manage DM with improved HbA1C. Pt will keep appt Development of self - management action plan with patient/caregiver/ provider. Patient and caregiver demonstrate basic understanding of their disease process. Exacerbations have been prevented, minimized or reduced in severity. Co-morbid conditions identified and managed. Patient/ caregiver demonstrates adherence to treatment plan. Identified Barriers: pt with increased stress due to change in health insurance and need for afforbale housing and Patient/caregiver's lack of understanding of their condition [...] to communicate, understand instructions, process information. P: Electronic Publisher Interventions: referred pt to LES as has lost GHP Family and no longer eligible [employer]. Now has Medicare. Seeking affordable housing as rent going up. [employer] was assisting with health insurance and applications for housing Reinforce Self Management Action Plan established at previous visit Reviewed HF symptom monitoring: -Weigh self daily [...] at night -increased fatigue or vertigo Advised of current HbA1c and pt is improving, but room for further improvement. Encouraged to continue with MTM Encouraged avoiding concentrated sweets, portion control and to call with BS >250 x 24 hours Reinforced safety education / fall prevention PCP Notified of enrollment in CM/HM program: Yes SNP Member? No Re-evaluation of plan of care and progress towards goals achievement:pt verbalizes s/s of HF needing reported Plan to call patient in 2-3 months to reassess and update plan of care, instructed to call Electronic Publisher or Primary Care Provider with change in symptoms or as needed before next follow-up, verbalizesunderstanding and agrees with plan. Frances Nicholson RN Outpatient Electronic Publisher in this encounter Plan of Treatment Upcoming Encounters Date Type Specialty Care Team Description 10/06/2018 Pharmacy [facility] [address] [place] [address] [phone] 10/23/2018 Office Visit Cardiology Marjorie Powell PA-C 132 [facility] [place] [address] [phone] 12/04/2018 Office Visit Family Medicine Kevin Whiteside DO [address] [place] [address] [phone] 01/24/2019 Office Visit Nephrology Gia White MD 21 [facility] [place] [address] [phone] 03/14/2019 Office Visit Cardiology Rey Woodall MD [address] [place] [address] [phone] 05/04/2019 Office Visit Sleep Disorders Celsa Tafoya CRNP [address] [place] [address] [phone] Health Maintenance Due Date Last Done Comments DIABETES-EYE EXAM 02/24/2011 02/24/2010 (Do ne elsewhere), 12/18/2009, 02/18/2008 (Done elsewhere) PAP SMEAR-EVERY 3 YRS,AGES 21-65 05/11/2016 05/11/2013, 03/01/2008, 10/19/2006, Additional history exists CKD PHOS USE SMARTSET 78048 12/29/2018 12/29/2017, 08/26/2009, 08/25/2009, Additional history exists DIABETES-FOOT EXAM 12/29/2018 12/29/2017, 0 10/21/2016, 12/11/2015, Additional history exists CKD GFR USE SMARTSET 76481 03/27/201909/27, 08/01/2018, 06/27/2018, Additional history exists DIABETES-HGBA1C EVERY 6 MONTHS 03/27/2019 09/27/2018, 05/01/2018, 12/29/2017, Additional history exists Yearly B-12 05/16/2019 05/16/2018 CKD HGB USE SMARTSET 82582 06/06/201906/06, 06/05/2018, 12/26/2017, Additional history exists BREAST [...] fileas of this encounter Visit Diagnoses Diagnosis Acute diastolic congestive heart failure (HCC)- Primary Acute diastolic heart failure HF (heart failure) (HCC) Heart failure, unspecified Uncontrolled type 2 diabetes mellitus with stage 3 chronic kidney disease, with long-term current use of insulin (HCC) in this encounter Advance Directives Patient has advance care planning documents, and code status on file. For more information, please contact: [place] [phone] Latest Code Status on File Code Status [...]
--- OUTSIDE RECORDS SUMMARY | 2023-06-01 05:57 | External Medical Summary | Summary of Care ---
Author Name Unknown Organization [place] [address] Care Team Providers Care Water Plant Pump Operator Supervisor Name Role Phone Kevin Whiteside DO Primary Care Provider Reason for Visit * Reason Comments Medication Question Pre Cert/Prior Auth FYI Encounter Details Date Type Department Care Team Description 08/30/2018 Telephone Family Practice [facility] [address] [facility] [place] [address] Kevin Wh[facility]ide DO [address] [facility] [place] [address] [phone] Medication Question; Pre Cert/Prior Auth; FYI Allergies Active Allergy Reactions Severity Noted [...] Each 5 8 Active ergocalciferol (VITAMIN D2,DRISDOL,) 15647 UNIT CapsuleIndications: Vitamin D deficiency Take 1 Cap by mouth once a week. 13 Cap 1 8 Active clonazePAM (KLONOPIN) 0.5 MG TabletIndications:A nxiety state TAKE ONE TABLET BY MOUTH TWICE DAILY 60 Tab 0 8 Active insulin aspart (NOVOLOG FLEXPEN) 100 UNIT/ML SOPN Inject 18 units breakfast, 10 units with lunch and 20 units with dinner plus sliding scale up to 100 units per day 10 Pre-filled Pen Syringe Dosing Unit 5 8 Active Blood Glucose Monitoring Suppl (ACCU-CHEK DANIELLE PLUS) w/Device KIT Use to test sugar 3-4 times daily. 1 Kit 0 8 Active Glucose Blood (ACCU-CHEK DANIELLE PLUS) STRP Test sugar 3-4 times a day. 400 Strip 3 8 Active ACCU-CHEK SOFTCLIX LANCETS MISC Test sugar 3-4 times a day. Ok to substitute Fastclix lancets, if needed. 400 Box Dosing Unit 3 8 Active gabapentin (NEURONTIN) 300 MG CapsuleIndications: Neuropathy,Fibromya lgia Take one capsule by mouth three times daily 270 Cap 3 8 09/04/20 18 Discontinued as of this encounter Active Problems Problem Noted Date Mild episode of recurrent major depressi ve [...] 10/14/2014 Overview: ICD-10 update of inactive term [place] filter in place 08/19/2014 History of pulmonary [...] encounter Miscellaneous Notes * Telephone Encounter - Enrique Hardy, [facility] - 09/05/2018 11:29 AM EST Called patient and told her result of B vs D determination. She stated again that she does not havemedicare part B. I advised her to call [employer] customer service number to situate that with them, and that she can probably just call her pharmacy once it is situated to have them reprocess. I told her give us a call back if there's anything we need to do on our end. Thanks, Enrique Hardy PharmD Clinical Pharmacist Pharmacy Refill Call Center 09/05/2018, 11:31 AM * Telephone Encounter - Izabela Crump LPN - 09/05/2018 10:35 AM EST Received fax from [employer] Denying Accu-Check Avia Plus Meter under Part D because it should be covered under Medicare Part B. Message below states that patient Does NOT have part B. Please advise of what to do next. * Telephone Encounter - Enrique Hardy, [facility] - 08/31/2018 9:40 AM EST Submitted PA over the phone. Reference numbers: Test strip #[id number] Lancets #[id number] Meter #[id number] Result of PA will be faxed to office in 24-72 hours at [phone] Thanks, Enrique Hardy PharmD Clinical Pharmacist Pharmacy Refill Call Center 08/31/2018, 9:55 AM * Telephone Encounter - Parish Shepherd PHARM Tech - 08/31/2018 9:06 AM EST Pharmacy calling stating pt needs medicare Part B vs. Part D determination on (ACCU-CHEK DANIELLE PLUS) STRP, (ACCU-CHEK DANIELLE PLUS) w/Device KIT, ACCU-CHEK SOFTCLIX LANCETS [facility] Pharmacy states that pt does not have Part B, stated they tried to resolve with insurance but insurance stated they need to be contacted by 's office. [facility] calling to inform doctor that the pt's insurance will not pay for this medication without a completed prior authorization. Please complete prior authorization with the following information: Patient name: Stephanie Camp ID number: [id number] BIN number: [id number] N number: [id number] Subscriber name: Stephanie Camp Medication: (ACCU-CHEK DANIELLE PLUS) STRP, (ACCU-CHEK DANIELLE PLUS) w/Device KIT, ACCU-CHEK SOFTCLIX LANCETS MISC Reason for PA: Part B vs Part D determination Pharmacy: [id number] Rx plan and phone number: [employer] [phone] Formulary alternatives: n/a List of medications pt has tried and failed: n/a Thank you, Parish Shepherd Incendiary Powder Mixer Refill Call Center 08/31/2018, 9:07 AM * Telephone Encounter - Kevin Whiteside DO - 08/30/2018 5:19 PM EST approved * Telephone Encounter - Masha Pickard CPhT - 08/30/2018 12:49 PM EST Ramiro calling from [facility] to advise that pt has new insurance, and they do not cover OneTouch products. States the preferred is Accu-Chek products. Ramiro suggested switching to the Accu-Chek Danielle Plus meter, and coordinating strips and lancets. Please approve, if appropriate. Thanks, Masha Pickard CPhT Trade Mark Attorney Pharmacy Refill Call Center 08/30/2018, 12:52 PM in this encounter Plan of Treatment Upcoming Encounters Date Type Specialty Care Team Description 09/07/2018 [facility] [address] [phone] 10/23/2018 Office Visit Cardiology Marjorie Powell PA-C [address] [place] [address] [phone] 12/04/2018 Office Visit Family Medicine Kevin Whiteside DO [address] [place] [address] [phone] 01/24/2019 Office Visit Nephrology Gia White MD 21 [facility] [place] [address] 03/14/2019 Office Visit Cardiology Rey Woodall MD [address] [place] [address] [phone] 05/04/2019 Office Visit Sleep Disorders Celsa Tafoya CRNP [address] [facility] [place] [address] [phone] Health Maintenance Due Date Last Done Comments DIABETES-EYE EXAM 02/24/2011 02/24/2010 (Do ne elsewhere), 12/18/2009, 02/18/2008 (Done elsewhere) PAP SMEAR-EVERY 3 YRS,AGES 21-65 05/11/2016 05/11/2013, 03/01/2008, 10/19/2006, Additional history exists DIABETES-HGBA1C EVERY 6 MONTHS 11/01/2018 05/01/2018, 12/29/2017, 07/14/2017, Additional history exists CKD PHOS USE SMARTSET 20589 12/29/2018 12/29/2017, 08/26/2009, 08/25/2009, Additional history exists DIABETES-FOOT EXAM 12/29/2018 12/29/2017, 0 10/21/2016, 12/11/2015, Additional history exists CKD GFR USE SMARTSET 96461 01/29/201908/01, 06/27/2018, 06/12/2018, Additional history exists Yearly B-12 05/16/2019 05/16/2018 CKD HGB USE SMARTSET 97170 06/06/201906/06, 06/05/2018, 12/26/2017, Additional history exists BREAST [...] For more information, please contact: [place] [phone] Latest Code Status on File Code Status [...]
--- OUTSIDE RECORDS SUMMARY | 2023-06-01 05:57 | External Medical Summary | Summary of Care ---
Author Name Unknown Organization [place] [address] Care Team Providers Care Greenkeeper Name Role Phone Kevin Whiteside DO Primary Care Provider Reason for Referral * Evaluate & Treat - Unlimited Visits (Within 10 days (routine)) Status Reason Specialty Diagnoses / Procedures Referred By Contact Referred To Contact Authorized Specialty Services Required Physical Therapy Diagnoses Lumbar radiculopathy Kevin Whiteside DO [address] [place] [address] * Precert (Routine) Status Reason Specialty Diagnoses / Procedures Referred By Contact Referred To Contact Pending Review Precert Radiology Diagnoses Lumbar radiculopathy Procedures MRI L SPINE WO CONTRAST Kevin Whiteside DO [address] [place] [address] Reason for Visit * Reason Comments Lump open sore on left lo wer back since before mani that won't heal and a lump that PT suggests that she has checked on left lower back Encounter Details Date Type Department Care Team Description 09/27/2018 Office Visit Family Practice [facility] [address] [place] [address] Kevin Whiteside DO [address] [place] [address] [phone] Lumbar radiculopathy*; Impetigo Allergies Active Allergy Reactions Severity Noted Date [...] 06/10/2018 Active furosemide (LASIX) 40 MG TabletIndications:Ac [place] diastolic congestive heart failure (HCC) Take 80mg [...] Each 5 08/01/2018 Active ergocalciferol (VITAMIN D2,DRISDOL,) 83314 UNIT CapsuleIndications:V itamin D deficiency Take 1 [...] 10/14/2014 Overview: ICD-10 update of inactive term Collison filter in place 08/19/2014 History of pulmonary [...] Start Travel End as of this encounter Last Filed Vital Signs Vital Sign Reading Time Taken Blood Pressure 146/68 09/27/2018 1:14 PM EST Pulse 88 09/27/2018 1:14 PM EST Temperature 36.6 C (97.9 F) 09/27/2018 1 :14 PM EST Respiratory Rate 18 09/27/2018 1:14 PM EST Oxygen Saturation 93% 09/27/2018 1:1 4 PM EST Inhaled Oxygen Concentration - - Weight 156.9 kg (346 lb) 09/27/2018 1:1 4 PM EST Height - - Body Mass Index 59 09/27/2018 1:14 PM EST in this encounter Progress Notes * Kevin Whiteside, DO - 09/27/2018 1:26 PM EST Nursing Notes: Izabela Crump, CHUYITA 09/27/18 1317 Signed The patient has been properly identified by confirmation of name and date of . Chief Complaint Patient presents with Lump open sore on left lower back since before mani that won't heal and a lump that PT suggests that she has checked on left lower back ASSESSMENT/PLAN: 1. Lumbar radiculopathy Low back pain with radiculopathy Physical therapy has been helping, but pain still persistent, will get MRI of low back to help solidify dx - MRI L SPINE WO CONTRAST - HEMOGLOBIN A1C; Future - BASIC METAB PANEL, BMP; Future - PHYSICAL THERAPY REFERRAL OP - BASIC METAB PANEL, BMP - HEMOGLOBIN A1C 2. Impetigo L lower back impetigo. Will treat with mupirocin and f/u as needed. HPI: Stephanie Camp is a 63 year old female who presents to have a few items evaluated. ROS: CONSTITUTIONAL: no weight loss, no fevers, no sweats HEENT: no change in vision or hearing, no congestion, no sore throat CARDIAC: no chest pain, no palpitations, no orthopnea, no AVENDAÑO, no syncope RESP: no wheezing and no SOB GI: no pain, no NVDC, no melena/hematochezia SKIN: rash on back MSK: + low back pain and radiation in to leg : no dysuria or discharge PHYSICAL EXAMINATION: BP 146/68 | Pulse 88 | Temp (Src) 97.9 (Tympanic) | Resp 18 | Wt 346 lbs (156.945kg) | BMI 59 kg/m | BSA 2.67 m | SaO2 93% | LMP 03/11/2003 GENERAL: alert, healthy, no [...] MSK: 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 Nocturnal hypoxemia G47.34 ELISSA (obstructive sleep apnea) G47.33 Venous insufficiency I87.2 HTN, goal below 130/80 I10 History of pulmonary embolus (PE) Z86.711 Statin intolerance Z78.[address] Z95.828 Type 2 diabetes mellitus with hemoglobin A1c goal of 7.0%-8.0% ([facility]) E11.9 Fibromyalgia M79.7 Abnormality of gait R26.9 Restless legs syndrome G25.81 Gastroesophageal reflux disease with esophagitis K21.0 Uncontrolled type 2 diabetes mellitus with stage 3 chronic kidney disease, with long-term current use of insulin ([facility]) E11.22, E11.65, N18.3, Z79.4 Body mass index (BMI) of 50.0 to 59.9 in adult ([facility]) Z68.43 Controlled substance agreement signed Z79.899 Chronic diastolic congestive heart failure ([facility]) I50.32 Thoracic back pain M54.6 Mild episode of recurrent major depressive disorder ([facility]) F33.0 Impetigo L01.00 Lumbar radiculopathy M54.16 Past Medical History: Diagnosis Date ELSIE (acute kidney injury) ([facility]) 06/12/2018 Allergic rhinitis due to other allergen Backache Diverticulosis of colon 01/28/06 DM type 2, not at goal ([facility]) ELLIE (generalized anxiety disorder) 09/13/[address] filter in [address] 08/19/2014 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HCC) 08/22/2009 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HCC) 06/12/2018 History of pulmonary embolus (PE) 07/16/2014 HTN, goal below 140/90 Obesity, BMI not known Perforation of intestine (HCC) 1996 COLON -- 1997 Pneumonia in aspergillosis(484.6) 09/14/2009 Spontaneous pneumothorax 09/14/2009 Statin intolerance 07/16/2014 Type 2 diabetes mellitus with hemoglobin A1c goal of 7.0%-8.0% (HCC) 10/14/2014 ICD-10 update of inactive term Vaginal karmen 07/13/2018 Past Surgical History: Procedure Laterality Date ARTHROPLASTY KNEE TOTAL Right 07/24/14 R CANCELLED PROCEDURE N/A 06/03/2011 Performed by Danny Holder DO at [place] [facility] CHOLECYSTECTOMY N/A 09/06/2009 Performed by Amadou Smith MD at [facility] COLONOSCOPY, DIAGNOSTIC (RECTUM) 02/18/2016 normal, repeat 10 yrs/[facility] COLONOSCOPY, GI REFERRAL OP 01/28/06 diverticulosis--repeat 10 years GASTROSTOMY WITH CONSTUCTION GASTRIC TUBE N/A 09/06/2009 Performed by Amadou Smith MD at [facility] INCISION OF WIN[place]IPE, PLANNED 06/03/2011 TRACHEOSTOMY PLANNED performed by DANNY HOLDER at [facility] KNEE ARTHROSCOPY/DEBRIDEMENT 07/[address] PERMANENT GASTROSTOMY TUBE 09/06/09 GASTROSTOMY WITH CONSTUCTION GASTRIC TUBE performed by AMADOU SMITH at [facility] REMOVAL OF THYROID GLAND 06/15/2011 THYROIDECTOMY INCLUDING SUBSTERNAL THYROID CERVICAL APPROACH performed by DANNY HOLDER at OR [facility] REMOVE GALLBLADDER 09/06/09 CHOLECYSTECTOMY performed by AMADOU SMITH at [facility] REPAIR RECURRENT INCISIONAL HERNIA 1998 REVISION OF COLOSTOMY, SIMPLE 1998 SUTURE, LARGE INTESTINE W/COLOSTOMY 1996 perforation R colon with colostomy THYROIDECTOMY INCLUDING SUBSTERNAL THYROID CERVICAL APPROACH N/A 06/15/2011 Performed by Danny Holder DO at OR [facility] TRACHEOSTOMY PLANNED N/A 06/03/2011 Performed by Danny Holder DO at OR [facility] VENA CAVA FILTER/LIGATION/CLIP 08/19/09 Collison filter placement through the right femoral 08/19/[address] Lerma at [facility] Current Outpatient Medications Medication Sig Dispense Refill LORazepam (ATIVAN) 1 MG Tablet Take 1 Tab by mouth once as needed for Anxiety for up to 1 dose.Take 30-60 min before MRI 1 Tab 0 mupirocin calcium (BACTROBAN) 2 % ointment Apply topically to affected area 3 times a day for 14 days. To affected area for up to 14 days. 22 g 1 Gabapentin (NEURONTIN) 600 MG Tablet Take 1 [...] Syringe Dosing Unit 5 ergocalciferol (VITAMIN D2,DRISDOL,) 91532 UNIT Capsule Take 1 Cap by mouth [...] 9 Pre-filled Pen Syringe Dosing Unit 11 lisinopril (PRINIVIL) 10 MG Tablet Take 0.5 Tabs by mouth daily. 90 Tab 3 metoprolol [...] by mouth at bedtime. 90 Tab 4 sertraline (ZOLOFT) 100 MG Tablet TAKE ONE AND ONE-HALF TABLETS BY MOUTH DAILY 135 Tab 1 furosemide (LASIX) 40 MG Tablet Take 80mg 3 days per week and 40mg all other days 35 Tab 5 MAG64 64 MG TBEC Take 64 mg by mouth 2 times a day. docusate sodium (STOOL SOFTENER) 100 MG Capsule Take 100 mg by mouth 2 times a day as needed for Constipation. oxygen GAS 4 LPM bled through CPAP 11 cwp during all periods of sleep. 1 Each 0 PRILOSEC 20 MG PO CPDR one tablet daily clonazePAM (KLONOPIN) 0.5 MG Tablet TAKE ONE TABLET BY MOUTH TWICE DAILY 180 Tab 3 Review of patient's allergies indicates: Allergen Reactions Jardiance [Empagliflozin] Other (Please comment) 3 yeast infections in 6 weeks after starting Heparin Heparin Induced Thrombocytopenia Morphine And Related Hallucinations Tetanus Toxoid Other (Please comment) Passed out Kevin Whiteside DO [facility] [address] [facility] [address] (This note was completed using the dictation program Fluency Direct. As such, there may be misspellings, word substitutions, or other variations that should not change the essence of the clinical content of this encounter note.If there is need for further clarification, please direct questions to the provider listed above.) in this encounter Nursing Notes * Izabela Crump LPN - 09/27/2018 1:14 PM EST The patient has been properly identified by confirmation of name and date of . Chief Complaint Patient presents with Lump open sore on left lower back since before mani that won't heal and a lump that PT suggests that she has checked on left lower back in this encounter Plan of Treatment Upcoming Encounters Date Type Specialty Care Team Description 09/28/2018 Imaging Radiology 10/06/2018 Pharmacy Pharmacy , [facility] [address] [address] [phone] 10/23/2018 Office Visit Cardiology Marjorie Powell PA-C [address] [facility] [place] [address] [phone] 12/04/2018 Office Visit Family Medicine Kevin Whiteside DO [address] [facility] [place] [address] [phone] 01/24/2019 Office Visit Nephrology Gia White MD [address] [place] [address] [phone] 03/14/2019 Office Visit Cardiology Rey Woodall MD [address] [facility] [place] [address] [phone] 05/04/2019 Office Visit Sleep Disorders Celsa Tafoya CRNP [address] [facility] [place] [address] [phone] Scheduled Tests Name Priority Associated Diagnoses Order S chedule MRI L SPINE WO CONTRAST Routine Lumbar radiculopathy Ordered: 09/27/2018 Scheduled Referrals Name Priority Associated Diagnoses Order S chedule PHYSICAL THERAPY REFERRAL OP Within 10 days (routine) Lumbar radiculopathy Ordered: 09/27/2018 Health Maintenance Due Date Last Done Comments DIABETES-EYE EXAM 02/24/2011 02/24/2010 (Do ne elsewhere), 12/18/2009, 02/18/2008 (Done elsewhere) PAP SMEAR-EVERY 3 YRS,AGES 21-65 05/11/2016 05/11/2013, 03/01/2008, 10/19/2006, Additional history exists DIABETES-HGBA1C EVERY 6 MONTHS 11/01/2018 05/01/2018, 12/29/2017, 07/14/2017, Additional history exists CKD PHOS USE SMARTSET 68806 12/29/2018 12/29/2017, 08/26/2009, 08/25/2009, Additional history exists DIABETES-FOOT EXAM 12/29/2018 12/29/2017, 0 10/21/2016, 12/11/2015, Additional history exists CKD GFR USE SMARTSET 43766 01/29/201908/01, 06/27/2018, 06/12/2018, Additional history exists Yearly B-12 05/16/2019 05/16/2018 CKD HGB USE SMARTSET 85621 06/06/201906/06, 06/05/2018, 12/26/2017, Additional history exists BREAST [...] Implants Not on fileas of this encounter Procedures Procedure Name Priority Date/Time Associated Diagnosis Comments HEMOGLOBIN A1C Routine 09/27/2018 1:48 PM EST Lumbar radiculopathy BASIC METAB PANEL, BMP Routine 09/27/2018 1:48 PM EST Lumbar radiculopathy in this encounter Results * BASIC METAB PANEL, BMP (09/27/2018 1:48 PM EST) BUN 42(H) 6 - 20 mg/dL [facility] CREATININE 1.6(H) Comment: GFR should be used to assess renal function.Plasma/Serum creatinine may not be able to properly reflect renal function in some cases. 0.5 - 1.0 mg/dL [facility] E GLOM FILT RATE 33.7(L)Comment:If sandy witt is , multiply estimated GFR by 1.159. >60 [facility] SODIUM 141 135 - 146 mmol/L [facility] POTASSIUM 4.9 3.5 - 5.1 mmol/L [facility] CHLORIDE 97(L) 98 - 107 mmol/L [facility] CO2 27 22 - 32 mmol/L [facility] ANION GAP 17(H) 7 - 15 mmol/L [facility] GLUCOSE 164(H) 70 - 120 mg/dL [facility] CALCIUM 9.6 8.4 - 10.2 mg/dL [facility] Performing Organization Address City/[facility]/Zipcod e Phone Number [facility], [address] [place] [address] * HEMOGLOBIN A1C (09/27/2018 1:48 PM EST) HEMOGLOBIN, A1C 9.5(H) Comment: The use of HbA1c to monitor glycemic status is based on normal hemoglobin and HbA composition. This test should not be used in patients with abnormal hemoglobin that affects the half life of the red blood cell or the in vivo glycation rates. 4.0 - 5.6 % [facility] EST AVG GLUCOSE 226(H) <126 [facility] Performing Organization Address City/[facility] e Phone Number [facility], [address] [facility] [place] [address] in this encounter Visit Diagnoses Diagnosis Lumbar radiculopathy- Primary Thoracic or lumbosacral neuritis or radiculitis, unspecified Impetigo in this encounter Advance Directives Patient has advance care planning documents, and code status on file. For more information, please contact: [place] [id number] Latest Code Status on File Code Status [...]
--- OUTSIDE RECORDS SUMMARY | 2023-06-01 05:57 | External Medical Summary | Summary of Care ---
Author Name Unknown Organization [place] [address] Care Team Providers Care Shipyard Painting Supervisor Name Role Phone Kevin Whiteside DO Primary Care Provider Reason for Visit * Reason Comments Test Results Imaging Study Encounter Details Date Type Department Care Team Description 09/28/2018 Telephone Family Practice [facility] [address] [facility] [place] [address] Kevin Wh[facility]ide DO [address] [facility] [place] [address] Test Results Imaging Study [...] 06/10/2018 Active furosemide (LASIX) 40 MG TabletIndications:Ac [place] diastolic congestive heart failure (HCC) Take 80mg [...] Each 5 08/01/2018 Active ergocalciferol (VITAMIN D2,DRISDOL,) 62085 UNIT CapsuleIndications:V itamin D deficiency Take 1 [...] current use of insulin ([facility]) Take 1 Tab by mouth [...] 10/14/2014 Overview: ICD-10 update of inactive term [place] filter in place 08/19/2014 History of pulmonary [...] a copy be sent to [facility] in [place]. Copy of results were faxed over as [...] Pharmacy Pharmacy [facility] [address] [facility], [place] [address] [phone] 10/23/2018 Office Visit Cardiology Marjorie Powell PA-C [address] [place] [address] [phone] 12/04/2018 Office Visit Family Medicine Kevin Whiteside DO [address] [place] [address] [phone] 01/24/2019 Office Visit Nephrology Gia White MD [address] [facility] [place] [address] [phone] 03/14/2019 Office Visit Cardiology Rey Woodall MD [address] [place] [address] [phone] 05/04/2019 Office Visit Sleep Disorders Celsa Tafoya CRNP [address] [place] [address] [phone] Health Maintenance Due Date Last Done Comments DIABETES-EYE EXAM 02/24/2011 02/24/2010 (Do ne elsewhere), 12/18/2009, 02/18/2008 (Done elsewhere) PAP SMEAR-EVERY 3 YRS,AGES 21-65 05/11/2016 05/11/2013, 03/01/2008, 10/19/2006, Additional history exists CKD PHOS USE SMARTSET 43991 12/29/2018 12/29/2017, 08/26/2009, 08/25/2009, Additional history exists DIABETES-FOOT EXAM 12/29/2018 12/29/2017, 0 10/21/2016, 12/11/2015, Additional history exists CKD GFR USE SMARTSET 92884 03/27/201909/27, 08/01/2018, 06/27/2018, Additional history exists DIABETES-HGBA1C EVERY 6 MONTHS 03/27/2019 09/27/2018, 05/01/2018, 12/29/2017, Additional history exists Yearly B-12 05/16/2019 05/16/2018 CKD HGB USE SMARTSET 72540 06/06/201906/06, 06/05/2018, 12/26/2017, Additional history exists BREAST [...] For more information, please contact: [place] [phone] Latest Code Status on File Code Status [...]
--- OUTSIDE RECORDS SUMMARY | 2023-06-01 05:57 | External Medical Summary | Summary of Care ---
Author Name Unknown Organization [place] [address] Care Team Providers Care Molybdenum Steamer Operator Name Role Phone Kevin Whiteside DO Primary Care Provider Reason for Referral * Evaluate & Treat - Unlimited Visits (Within 10 days (routine)) Status Reason Specialty Diagnoses / Procedures Referred By Contact Referred To Contact Authorized Specialty Services Required Physical Therapy Diagnoses Lumbar radiculopathy Kevin Whiteside DO [address] [place] [address] Reason for Visit * Reason Comments Pain low back pain that r adiates down both legs has worsened over the last 2 weeks making her unsteady Encounter Details Date Type Department Care Team Description 09/04/2018 Office Visit Family Practice [facility] [address] [place] [address] Kevin Whiteside DO [address] [place] [address] [phone] Controlled substance agreement signed*; Uncontrolled type 2 diabetes mellitus with stage 3 chronic kidney disease, with long-term current use of insulin (HCC); Lumbar radiculopathy Allergies Active Allergy Reactions Severity [...] Each 5 8 Active ergocalciferol (VITAMIN D2,DRISDOL,) 91536 UNIT CapsuleIndications: Vitamin D deficiency Take 1 [...] a day. 90 Tab 11 8 Active gabapentin (NEURONTIN) 300 MG CapsuleIndications: [...] Vital Sign Reading Time Taken Blood Pressure 130/74 09/04/2018 12:56 PM EST Pulse 96 09/04/2018 12:56 PM EST Temperature 37.1 C (98.7 F) 09/04/2018 1 2:56 PM EST Respiratory Rate 24 09/04/2018 12:5 6 PM EST Oxygen Saturation 93% 09/04/2018 12: 56 PM EST Inhaled Oxygen Concentration - - Weight 154.2 kg (340 lb) 09/04/2018 12: 56 PM EST Height - - Body Mass Index 57.98 09/04/2018 12:56 PM EST in this encounter Progress Notes * Kevin Whiteside, - 09/04/2018 1:11 PM EST Nursing Notes: Izabela Crump LPN 09/04/18 4011 Signed The patient has been properly identified by confirmation of name and date of . Chief Complaint Patient presents with Pain low back pain that radiates down both legs has worsened over the last 2 weeks making her unsteady ASSESSMENT/PLAN: 1. Controlled substance agreement signed Screening patient for benzo compliance - OPIOIDS/BENZO COMPLIANCE MONITORING W/INTERP; Future 2. Uncontrolled type 2 diabetes mellitus with stage 3 chronic kidney disease, with long-term current use of insulin (HCC) 3. Lumbar radiculopathy Will increase dose of neurontin to 600mg TID to help with lumbar radiculopathy. Will also extend referral for low back as well - Gabapentin (NEURONTIN) 600 MG Tablet; Take 1 Tab by mouth 3 times a day. Dispense: 90 Tab; Refill: 11 - PHYSICAL THERAPY REFERRAL OP HPI: Stephanie Camp is a 63 year old female who presents to F/u on her DMII, low back pain, anxiety. ROS: CONSTITUTIONAL: no weight loss, no fevers, no sweats HEENT: no change in vision or hearing, no congestion, no sore throat CARDIAC: no chest pain, no palpitations, no orthopnea, no AVEDNAÑO, no syncope RESP: no wheezing and no SOB GI: no pain, no NVDC, no melena/hematochezia SKIN: no rashes MSK: no significant joint or muscle pain and no swelling : no dysuria or discharge NEURO: no memory loss, no numbness PSYCH: no SI/HI PHYSICAL EXAMINATION: BP 130/74 | Pulse 96 | Temp (Src) 98.7 (Tympanic) | Resp 24 | Wt 340 lbs (154.223kg) | BMI 57.98 kg/m | BSA 2.64 m | SaO2 93[room air[% | LMP 03/11/2003 GENERAL: alert, healthy, no [...] gait normal, reflexes normal and symmetric MSK: bilateral lumbar hypertonicity and pain with bilateral radiculopathy Patient Active Problem List Diagnosis Code Primary [...] major depressive disorder ([facility]) F33.0 Past Medical History: Diagnosis Date ELSIE (acute kidney injury) ([facility]) 06/12/2018 Allergic rhinitis due to other allergen Backache Diverticulosis of colon 01/28/06 DM type 2, not at goal ([facility]) ELLIE (generalized anxiety disorder) 09/13/2009 Goiter [place] filter in place 08/19/2014 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[facility]) 08/22/2009 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[facility]) 06/12/2018 History of pulmonary embolus (PE) 07/16/2014 HTN, goal below 140/90 Obesity, BMI not known Perforation of intestine ([facility]) 1996 COLON -- 1996 Pneumonia in aspergillosis(484.6) 09/14/2009 Spontaneous pneumothorax 09/14/2009 Statin intolerance 07/16/2014 Type 2 diabetes mellitus with hemoglobin A1c goal of 7.0%-8.0% ([facility]) 10/14/2014 ICD-10 update of inactive term Vaginal karmen 07/13/2018 Past Surgical History: Procedure Laterality Date ARTHROPLASTY KNEE TOTAL Right 07/24/14 R CANCELLED PROCEDURE N/A 06/03/2011 Performed by Danny Holder DO at [facility] CHOLECYSTECTOMY N/A 09/06/2009 Performed by Amadou Smiht MD at [facility] COLONOSCOPY, DIAGNOSTIC (RECTUM) 02/18/2016 normal, repeat 10 yrs/[facility] COLONOSCOPY, GI REFERRAL OP 01/28/06 diverticulosis--repeat 10 years GASTROSTOMY WITH CONSTUCTION GASTRIC TUBE N/A 09/06/2009 Performed by Amadou Smith MD at [facility] [place], PLANNED 06/03/2011 TRACHEOSTOMY PLANNED performed by DANNY HOLDER at [facility] KNEE ARTHROSCOPY/DEBRIDEMENT 07/[address] PERMANENT GASTROSTOMY TUBE 09/06/09 GASTROSTOMY WITH CONSTUCTION GASTRIC TUBE performed by AMADOU SMITH at [facility] REMOVAL OF THYROID GLAND 06/15/2011 THYROIDECTOMY INCLUDING SUBSTERNAL THYROID CERVICAL APPROACH performed by DANNY HOLDER at [facility] REMOVE GALLBLADDER 09/06/09 CHOLECYSTECTOMY performed by AMADOU SMITH at [facility] REPAIR RECURRENT INCISIONAL HERNIA 1998 REVISION OF COLOSTOMY, SIMPLE 1998 SUTURE, LARGE INTESTINE W/COLOSTOMY 1996 perforation R colon with colostomy THYROIDECTOMY INCLUDING SUBSTERNAL THYROID CERVICAL APPROACH N/A 06/15/2011 Performed by Danny Holder DO at [facility] TRACHEOSTOMY PLANNED N/A 06/03/2011 Performed by Danny Holder DO at [facility] VENA CAVA FILTER/LIGATION/CLIP 08/19/09 Frank filter placement through the right femoral 08/19/[address] Lerma at [facility] Current Outpatient Medications Medication Sig Dispense Refill Gabapentin (NEURONTIN) 600 MG Tablet Take 1 [...] 10 Pre-filled Pen Syringe Dosing Unit 5 clonazePAM (KLONOPIN) 0.5 MG Tablet TAKE ONE TABLET BY MOUTH TWICE DAILY 60 Tab 0 ergocalciferol (VITAMIN D2,DRISDOL,) 83419 UNIT Capsule Take 1 Cap by mouth [...] (Please comment) Passed out Kevin Whiteside DO [facility] [address] [place] [address] (This note was completed using the dictation program Fluency Direct. As such, there may be misspellings, word substitutions, or other variations that should not change the essence of the clinical content of this encounter note.If there is need for further clarification, please direct questions to the provider listed above.) in this encounter Nursing Notes * Izabela Crump, CHUYITA - 09/04/2018 12:56 PM EST The patient has been properly identified by confirmation of name and date of . Chief Complaint Patient presents with Pain low back pain that radiates down both legs has worsened over the last 2 weeks making her unsteady in this encounter Plan of Treatment Upcoming Encounters Date Type Specialty Care Team Description 09/07/2018 Pharmacy Pharm[facility] [address] [facility] [address] [phone] 10/23/2018 Office Visit Cardiology Marjorie Powell PA-C [address] [place] [address] [phone] 12/04/2018 Office Visit Family Medicine eKvin Whiteside DO [address] [place] [address] [phone] 01/24/2019 Office Visit [facility]phrology [facility] [place] [address] [phone] 03/14/2019 [facility] Visit [facility] [address] [facility] [address] [phone] 05/04/2019 Office Visit Sleep Disorders Celsa Tafoya CRNP [address] [facility] [place] [address] [phone] Pending Results Name Priority Associated Diagnoses Date/Ti me OPIOIDS/BENZO COMPLIANCE MONITORING W/INTERP Routine Controlled substance agreement signed 09/04/2018 2:27 PM EST Scheduled Tests Name Priority Associated Diagnoses Order S chedule OPIOIDS/BENZO COMPLIANCE MONITORING W/INTERP Routine Controlled substance agreement signed Expected: 09/04/2018 (Approximate), Expires: 12/03/2018 Scheduled Referrals Name Priority Associated Diagnoses Order S chedule PHYSICAL THERAPY REFERRAL OP Within 10 days (routine) Lumbar radiculopathy Ordered: 09/04/2018 Health Maintenance Due Date Last Done Comments DIABETES-EYE EXAM 02/24/2011 02/24/2010 (Do ne elsewhere), 12/18/2009, 02/18/2008 (Done elsewhere) PAP SMEAR-EVERY 3 YRS,AGES 21-65 05/11/2016 05/11/2013, 03/01/2008, 10/19/2006, Additional history exists DIABETES-HGBA1C EVERY 6 MONTHS 11/01/2018 05/01/2018, 12/29/2017, 07/14/2017, Additional history exists CKD PHOS USE SMARTSET 27536 12/29/2018 12/29/2017, 08/26/2009, 08/25/2009, Additional history exists DIABETES-FOOT EXAM 12/29/2018 12/29/2017, 0 10/21/2016, 12/11/2015, Additional history exists CKD GFR USE SMARTSET 39157 01/29/201908/01, 06/27/2018, 06/12/2018, Additional history exists Yearly B-12 05/16/2019 05/16/2018 CKD HGB USE SMARTSET 94968 06/06/201906/06, 06/05/2018, 12/26/2017, Additional history exists BREAST [...] fileas of this encounter Visit Diagnoses Diagnosis Controlled substance agreement signed- Primary Encounter for long-term (current) use of other medications Uncontrolled type 2 diabetes mellitus with stage 3 chronic kidney disease, with long-term current use of insulin (HCC) Lumbar radiculopathy Thoracic or lumbosacral neuritis or radiculitis, unspecified in this encounter Advance Directives Patient has advance care planning documents, and code status on file. For more information, please contact: [place] [address] Latest Code Status on File Code Status [...]
--- OUTSIDE RECORDS SUMMARY | 2023-06-01 05:57 | External Medical Summary ---
Author Name Unknown Address [facility] [place] [address] Phone Organization K01:[facility] [address] [facility] [place] [address] Laboratory Report Ordering Provider Test Date Status LONG CAMARENA 09/27/2018 13:48:00 Final Observation Date Value Abnormality Reference Status HbA1C 09/27/2018 21:08 9.5 Above high normal 4.0-5 .6 Final Performing Location [facility] [address] [facility] [address]
--- OUTSIDE RECORDS SUMMARY | 2023-06-01 05:57 | External Medical Summary | Summary of Care ---
Author Name Unknown Organization [place] [address] Care Team Providers Care Street And Building Decorator Name Role Phone Kevin Whiteside DO Primary Care Provider Reason for Visit * Reason Comments Medication Question Pre Cert/Prior Auth FYI Encounter Details Date Type Department Care Team Description 08/30/2018 Telephone Family Practice [facility] [address] [facility] [place] [address] Kevin Wh[facility]ide DO [address] [facility] [place] [address] [phone] Medication Question; Pre Cert/Prior Auth; FYI Allergies [...] Each 5 8 Active ergocalciferol (VITAMIN D2,DRISDOL,) 44511 UNIT CapsuleIndications: Vitamin D deficiency Take 1 [...] 10/14/2014 Overview: ICD-10 update of inactive term [place] filter in place 08/19/2014 History of pulmonary [...] 09/05/2018 10:35 AM EST Received fax from [employer] Denying Accu-Check Avia Plus Meter under Part D because it should be covered under Medicare Part B. Message below states that patient Does NOT have part B. Please advise of what to do next. * Telephone Encounter - Enrique Hardy RPh - 08/31/2018 9:40 AM EST Submitted PA over the phone. Reference numbers: Test strip #[id number] Lancets #[id number] Meter #[id number] Result of PA will be faxed to office in 24-72 hours at [phone] ThanksEnrique PharmD Clinical Pharmacist Pharmacy Refill Call Center 08/31/2018, 9:55 AM * Telephone Encounter - Parish Shepherd PHARM Tech - 08/31/2018 9:06 AM EST Pharmacy calling stating pt needs medicare Part B vs. Part D determination on (ACCU-CHEK DANIELLE PLUS) STRP, (ACCU-CHEK DANIELLE PLUS) w/Device KIT, ACCU-CHEK SOFTCLIX LANCETS MISC Pharmacy states that pt does not have Part B, stated they tried to resolve with insurance but insurance stated they need to be contacted by dr's office. [facility] calling to inform doctor that the pt's insurance will not pay for this medication without a completed prior authorization. Please complete prior authorization with the following information: Patient name: Stephanie Camp ID number: [id number] BIN number: [id number] N number: [id number] Subscriber name: Stephanie Camp Medication: (ACCU-CHEK DANIELLE PLUS) STRP, (ACCU-CHEK DANIELLE PLUS) w/Device KIT, ACCU-CHEK SOFTCLIX LANCETS MISC Reason for PA: Part B vs Part D determination Pharmacy: [facility] [id number] Rx plan and phone number: Vale [phone] Formulary alternatives: n/a List of medications pt has tried and failed: n/a Thank you, Parish Shepherd Racking Technician Refill Call Center 08/31/2018, 9:07 AM * Telephone Encounter - Kevin WhitesideDO - 08/30/2018 5:19 PM EST approved * Telephone Encounter - Masha Pickard CPhT - 08/30/2018 12:49 PM EST Ramiro calling from [facility] to advise that pt has new insurance, and they do not cover OneTouch products. States the preferred is Accu-Chek products. Ramiro suggested switching to the Accu-Chek Danielle Plus meter, and coordinating strips and lancets. Please approve, if appropriate. Thanks, Masha Pickard CPhT [facility]er Pharmacy Refill Call Center 08/30/2018, 12:52 PM in this encounter Plan of Treatment Upcoming Encounters Date Type Specialty Care Team Description 09/07/2018 Pharmacy Pharmacy Sp, [facility] [address] [place] [address] [phone] 10/23/2018 Office Visit Cardiology Marjorie Powell PA-C [address] [place] [address] [phone] 12/04/2018 Office Visit Family Medicine Sergey Whitesidevoliida Gonzalez DO [address] [place] [address] [phone] 01/24/2019 Office Visit Nephrology Gia White MD [address] [facility] [place] [address] [phone] 03/14/2019 Office Visit Cardiology Rey Woodall MD [address] [place] [address] [phone] 05/04/2019 Office Visit Sleep Disorders Celsa Tafoya CRNP [address] [place] [address] [phone] Health Maintenance Due Date Last Done Comments DIABETES-EYE EXAM 02/24/2011 02/24/2010 (Do ne elsewhere), 12/18/2009, 02/18/2008 (Done elsewhere) PAP SMEAR-EVERY 3 YRS,AGES 21-65 05/11/2016 05/11/2013, 03/01/2008, 10/19/2006, Additional history exists DIABETES-HGBA1C EVERY 6 MONTHS 11/01/2018 05/01/2018, 12/29/2017, 07/14/2017, Additional history exists CKD PHOS USE SMARTSET 39343 12/29/2018 12/29/2017, 08/26/2009, 08/25/2009, Additional history exists DIABETES-FOOT EXAM 12/29/2018 12/29/2017, 0 10/21/2016, 12/11/2015, Additional history exists CKD GFR USE SMARTSET 00907 01/29/201908/01, 06/27/2018, 06/12/2018, Additional history exists Yearly B-12 05/16/2019 05/16/2018 CKD HGB USE SMARTSET 62836 06/06/201906/06, 06/05/2018, 12/26/2017, Additional history exists BREAST [...] For more information, please contact: [place] [phone] Latest Code Status on File Code Status [...]
--- OUTSIDE RECORDS SUMMARY | 2023-06-01 05:57 | External Medical Summary | Summary of Care ---
Author Name Unknown Organization [place] [address] Care Team Providers Care Tobacco Wrapping Machine Tender Name Role Phone Kevin Carmona Primary Care Provider Reason for Visit * Reason Comments Test Results Encounter Details Date Type Department Care Team Description 08/29/2018 Telephone [facility] [place] Vineet Fuentes [address] [place] [address] Alvin Galeana MD [address] [place] [address] Test Results Allergies Active Allergy Reactions Severity [...] 06/10/2018 Active furosemide (LASIX) 40 MG TabletIndications:Ac [place] diastolic congestive heart failure (HCC) Take 80mg 3 days per week and 40mg all other days 35 Tab 5 07/03/2018 Active cyclobenzaprine (FLEXERIL) 10 MG Tablet TAKE ONE TABLET BY MOUTH AT BEDTIME NEEDED FOR MUSCLE SPASM 90 Tab 2 08/01/2018 Active gabapentin (NEURONTIN) 300 MG CapsuleIndications:N europathy,Fibromyalg ia Take one capsule by mouth three times daily 270 Cap 3 08/01/2018 Active Insulin Degludec (TRESIBA FLEXTOUCH) 200 [...] Each 5 08/01/2018 Active ergocalciferol (VITAMIN D2,DRISDOL,) 73560 UNIT CapsuleIndications:V itamin D deficiency Take 1 Cap by mouth once a week. 13 Cap 1 08/02/2018 Active clonazePAM (KLONOPIN) 0.5 MG TabletIndications:An xiety state TAKE ONE TABLET BY MOUTH TWICE DAILY 60 Tab 0 08/08/2018 Active insulin aspart (NOVOLOG FLEXPEN) 100 UNIT/ML SOPN Inject 18 units breakfast, 10 units with lunch and 20 units with dinner plus sliding scale up to 100 units per day 10 Pre-filled Pen Syringe Dosing Unit 5 08/24/2018 Active as of this encounter Active Problems [...] Telephone Encounter - Frances Ceballos LPN - 08/30/2018 8:27 AM EST Patient returned call. Informed of message below. Verbalized understanding. Scheduled appt with Dr carmona 09/04 * Telephone Encounter - Olivia White RN - 08/29/2018 4:45 PM EST Attempted to call patient/parent. Message left on answering machine to return call. * Telephone Encounter - Alvin Galeana MD - 08/29/2018 4:38 PM EST X-ray showed arthritis but nothing that would account for onset of leg weakness. Follow up with PCPas scheduled. in this encounter Plan of Treatment Upcoming Encounters Date Type Specialty Care Team Description 09/04/2018 Office Visit Family Medicine Kevin Carmona, [address] [facility] [place] [address] [phone] 09/07/2018 Pharmacy Pharmacy , [facility] [address] [place] [address] [phone] 10/23/2018 Office Visit Cardiology Marjorie Powell PA-C [address] [place] [address] [phone] 01/24/2019 Office Visit [facility]phrology [facility] [address] [facility] [address] [phone] 03/14/2019 Office Visit Cardiology Rey Woodall MD [address] [facility] [place] [address] [phone] 05/04/2019 Office Visit Sleep Disorders Celsa Tafoya CRNP [address] [facility] [place] [address] [phone] Health Maintenance Due Date Last Done Comments DIABETES-EYE EXAM 02/24/2011 02/24/2010 (Do ne elsewhere), 12/18/2009, 02/18/2008 (Done elsewhere) PAP SMEAR-EVERY 3 YRS,AGES 21-65 05/11/2016 05/11/2013, 03/01/2008, 10/19/2006, Additional history exists DIABETES-HGBA1C EVERY 6 MONTHS 11/01/2018 05/01/2018, 12/29/2017, 07/14/2017, Additional history exists CKD PHOS USE SMARTSET 38367 12/29/2018 12/29/2017, 08/26/2009, 08/25/2009, Additional history exists DIABETES-FOOT EXAM 12/29/2018 12/29/2017, 0 10/21/2016, 12/11/2015, Additional history exists CKD GFR USE SMARTSET 98112 01/29/201908/01, 06/27/2018, 06/12/2018, Additional history exists Yearly B-12 05/16/2019 05/16/2018 CKD HGB USE SMARTSET 09123 06/06/201906/06, 06/05/2018, 12/26/2017, Additional history exists BREAST [...] For more information, please contact: [place] [phone] Latest Code Status on File Code Status [...]
--- OUTSIDE RECORDS SUMMARY | 2023-06-01 05:57 | External Medical Summary | Summary of Care ---
Author Name Unknown Organization [place] [address] Care Team Providers Care Vice President Of Communications Name Role Phone Kevin Whiteside DO Primary Care Provider Reason for Visit * Reason Comments Medication Question Pre Cert/Prior Auth FYI Encounter Details Date Type Department Care Team Description 08/30/2018 Telephone Family Practice [facility] [address] [place] [address] Kevin Whiteside DO [address] [facility] [address] [phone] Medication Question; Pre Cert/Prior Auth; FYI Allergies [...] Each 5 08/01/2018 Active ergocalciferol (VITAMIN D2,DRISDOL,) 48757 UNIT CapsuleIndications:V itamin D deficiency Take 1 [...] 08/24/2018 Active Blood Glucose Monitoring Suppl (ACCU-CHEK DANIELLE PLUS) w/Device KIT Use to test sugar 3-4 times daily. 1 Kit 0 08/30/2018 Active Glucose Blood (ACCU-CHEK DANIELLE PLUS) STRP Test sugar 3-4 times a day. 400 Strip 3 08/30/2018 Active ACCU-CHEK SOFTCLIX LANCETS MISC Test sugar 3-4 times a day. Ok to substitute Fastclix lancets, if needed. 400 Box Dosing Unit 3 08/30/2018 Active as of this encounter Active Problems [...] 10/14/2014 Overview: ICD-10 update of inactive term [place] filter in place 08/19/2014 History of pulmonary [...] Miscellaneous Notes * Telephone Encounter - Enrique Hardy RPh - 08/31/2018 9:40 AM EST Submitted PA over the phone. Reference numbers: Test strip #[id number] Lancets #[id number] Meter #[id number] Result of PA will be faxed to office in 24-72 hours at [phone] Thanks, Enrique Hardy PharmD Clinical Pharmacist Pharmacy [...] need to be contacted by dr's office. [facility] calling to inform doctor that the pt's insurance will not pay for this medication without a completed prior authorization. Please complete prior authorization with the following information: Patient name: Stephanie Camp ID number: [id number] BIN number: [id number] PCN number: [id number] Subscriber name: Stephanie Camp Medication: (ACCU-CHEK DANIELLE PLUS) STRP, (ACCU-CHEK DANIELLE PLUS) w/Device KIT, ACCU-CHEK SOFTCLIX LANCETS MISC Reason for PA: Part B vs Part D determination Pharmacy: [facility] [id number]- [place] Rx plan and phone number: Jobyal [phone] Formulary alternatives: n/a List of medications pt has tried and failed: n/a Thank you, Parish Shepherd Cost Accounting Analyst Refill Call Center 08/31/2018, 9:07 AM * Telephone Encounter - Kevin Whiteside DO - 08/30/2018 5:19 PM EST approved * Telephone Encounter - Masha Pickard CPhT - 08/30/2018 12:49 PM EST Ramiro calling from [facility] to advise that pt has new insurance, and they do not cover OneTouch products. States the preferred is Accu-Chek products. Ramiro suggested switching to the Accu-Chek Danielle Plus meter, and coordinating strips and lancets. Please approve, if appropriate. Thanks, Masha Pickard CPhT Pipe Production Worker Pharmacy Refill Call Center 08/30/2018, 12:52 PM in this encounter Plan of Treatment Upcoming Encounters Date Type Specialty Care Team Description 09/04/2018 Office Visit Family Medicine Kevin Whiteside, [address] [place] [address] [phone] 09/07/2018 Pharmacy Pharmacy , [facility] [address] [facility] [address] [phone] 10/23/2018 Office Visit Cardiology Marjorie Powell PA-C [address] [place] [address] [phone] 01/24/2019 Office Visit Nephrology Gia White MD [address] [facility] [place] [id number] 03/14/2019 Office Visit Cardiology Rey Woodall MD [address] [place] [address] [phone] 05/04/2019 Office Visit Sleep Disorders Celsa Tafoya CRNP [address] [place] [address] [phone] Health Maintenance Due Date Last Done Comments DIABETES-EYE EXAM 02/24/2011 02/24/2010 (Do ne elsewhere), 12/18/2009, 02/18/2008 (Done elsewhere) PAP SMEAR-EVERY 3 YRS,AGES 21-65 05/11/2016 05/11/2013, 03/01/2008, 10/19/2006, Additional history exists DIABETES-HGBA1C EVERY 6 MONTHS 11/01/2018 05/01/2018, 12/29/2017, 07/14/2017, Additional history exists CKD PHOS USE SMARTSET 37091 12/29/2018 12/29/2017, 08/26/2009, 08/25/2009, Additional history exists DIABETES-FOOT EXAM 12/29/2018 12/29/2017, 0 10/21/2016, 12/11/2015, Additional history exists CKD GFR USE SMARTSET 87855 01/29/201908/01, 06/27/2018, 06/12/2018, Additional history exists Yearly B-12 05/16/2019 05/16/2018 CKD HGB USE SMARTSET 03835 06/06/201906/06, 06/05/2018, 12/26/2017, Additional history exists BREAST [...] For more information, please contact: [place] [phone] Latest Code Status on File Code Status [...]
--- OUTSIDE RECORDS SUMMARY | 2023-06-01 05:57 | External Medical Summary | Summary of Care ---
Author Name Unknown Organization [place] [address] Care Team Providers Care School Boat Driver Name Role Phone Migue Whiteside DO Primary Care Provider Reason for Visit * Reason Comments eRx-Medication Refill Encounter Details Date Type Department Care Team Description 09/11/2018 Refill [facility] [address] Migue Whiteside DO [address] [facility] [address] Anxiety state Allergies Active Allergy Reactions [...] Each 5 8 Active ergocalciferol (VITAMIN D2,DRISDOL,) 84936 UNIT CapsuleIndications: Vitamin D deficiency Take 1 [...] insulin ([facility]) Take 1 Tab by mouth 3 times a day. 90 Tab 11 8 Active clonazePAM (KLONOPIN) 0.5 MG TabletIndications:A nxiety state TAKE ONE TABLET BY MOUTH TWICE DAILY 180 Tab 3 8 Active clonazePAM (KLONOPIN) 0.5 MG TabletIndications:A nxiety state TAKE ONE TABLET BY MOUTH TWICE DAILY 60 Tab 0 8 09/11/20 18 Discontinued as of this encounter Active [...] 10/14/2014 Overview: ICD-10 update of inactive term [place] filter in place 08/19/2014 History of pulmonary [...] Telephone Encounter - Migue Whiteside DO - 09/11/2018 4:27 PM EST Signed Prescriptions: Disp Refills clonazePAM (KLONOPIN) 0.5 MG Tablet 180 Tab3 Sig: TAKE ONE TABLET BY MOUTH TWICE DAILY Authorizing Provider: MIGUE WHITESIDE * Telephone Encounter - Neelam Zarco LPN - 09/11/2018 1:26 PM EST Pending Prescriptions: Disp Refills clonazePAM (KLONOPIN) 0.5 MG Tablet [Phar*180 Tab3 Sig: TAKE ONE TABLET BY MOUTH TWICE DAILY * Telephone Encounter - Neelam Zarco LPN - 09/11/2018 1:25 PM EST Pending Prescriptions: Disp Refills clonazePAM (KLONOPIN) 0.5 MG Tablet [Phar*60 Tab 0 Sig: TAKE ONE TABLET BY MOUTH TWICE DAILY Last Office Visit: 09/04/2018 Next Office Visit: 12/04/2018 Scheduled Provider(s): Migue Whiteside DO Last date the medication was ordered: 08/08/18 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 Nocturnal hypoxemia G47.34 ELISSA (obstructive sleep apnea) G47.33 Venous insufficiency I87.2 HTN, goal below 130/80 I10 History of pulmonary embolus (PE) Z86.711 Statin intolerance Z78.[address] [address] Z95.828 Type 2 diabetes mellitus with hemoglobin A1c goal of 7.0%-8.0% ([facility]) E11.9 Fibromyalgia M79.7 Abnormality of gait R26.9 Restless legs syndrome G25.81 Gastroesophageal reflux disease with esophagitis K21.0 Uncontrolled type 2 diabetes mellitus with stage 3 chronic kidney disease, with long-term current use of insulin ([facility]) E11.22, E11.65, N18.3, Z79.4 Body mass index (BMI) of 50.0 to 59.9 in adult ([facility]) Z68.43 Controlled substance agreement signed Z79.899 Chronic diastolic congestive heart failure ([facility]) I50.32 Thoracic back pain M54.6 Mild episode of recurrent major depressive disorder ([facility]) F33.0 Labs: CREATININE JOHNNY(mg/dL) Nessa Dt/Tm Resulted Value Status 09/04/18 2:27P 09/08/18 50 FINAL POTASSIUM(mmol/L) Nessa Dt/Tm Resulted Value Status 08/01/18 8:29A 08/01/18 4.4 FINAL TSH(uIU/mL) Nessa Dt/Tm Resulted Value Status 05/01/18 9:12A 05/01/18 3.14 FINAL LDL (CALCULATED)(mg/dL) Nessa Dt/Tm Resulted Value Status 08/01/18 8:29A 08/01/18 111 FINAL LDL DIRECT(REFLEX)(mg/dL) Nessa Dt/Tm Resulted Value Status 08/01/18 8:29A 08/01/18 FINAL Value: NOT APPLICABLE ALT(U/L) Nessa Dt/Tm Resulted Value Status 12/29/17 12:43P 12/29/17 40* FINAL Hemoglobin AIC Results: HEMOGLOBIN, A1C(%) Nessa Dt/Tm Resulted Value Status 05/01/18 9:12A 05/01/18 10.0* FINAL 12/29/17 12:43P 12/29/17 11.6* FINAL 07/14/17 12:35P 07/14/17 9.3* FINAL in this encounter Plan of Treatment Upcoming Encounters Date Type Specialty Care Team Description 09/21/2018 Pharmacy Pharmacy Sp, [facility] [address] [place] [address] [phone] 10/23/2018 Office Visit Cardiology Marjorie Powell PA-C [address] [place] [address] [phone] 12/04/2018 Office Visit Family Medicine Migue Whiteside DO [address] [place] [address] [phone] 01/24/2019 Office Visit Nephrology Gia White MD 21 [facility] [place] [address] 03/14/2019 Office Visit Cardiology Rey Woodall MD [address] [facility] [place] [address] [phone] 05/04/2019 Office Visit Sleep Disorders Celsa Tafoya CRNP [address] [facility] [place] [address] [phone] Health Maintenance Due Date Last Done Comments DIABETES-EYE EXAM 02/24/2011 02/24/2010 (Do ne elsewhere), 12/18/2009, 02/18/2008 (Done elsewhere) PAP SMEAR-EVERY 3 YRS,AGES 21-65 05/11/2016 05/11/2013, 03/01/2008, 10/19/2006, Additional history exists DIABETES-HGBA1C EVERY 6 MONTHS 11/01/2018 05/01/2018, 12/29/2017, 07/14/2017, Additional history exists CKD PHOS USE SMARTSET 55534 12/29/2018 12/29/2017, 08/26/2009, 08/25/2009, Additional history exists DIABETES-FOOT EXAM 12/29/2018 12/29/2017, 0 10/21/2016, 12/11/2015, Additional history exists CKD GFR USE SMARTSET 16309 01/29/201908/01, 06/27/2018, 06/12/2018, Additional history exists Yearly B-12 05/16/2019 05/16/2018 CKD HGB USE SMARTSET 55121 06/06/201906/06, 06/05/2018, 12/26/2017, Additional history exists BREAST [...] fileas of this encounter Visit Diagnoses Diagnosis Anxiety state Anxiety state, unspecified in this encounter Advance Directives Patient has advance care planning documents, and code status on file. For more information, please contact: [place] [phone] Latest Code Status on File Code Status [...]
--- OUTSIDE RECORDS SUMMARY | 2023-06-01 05:57 | External Medical Summary | Summary of Care ---
Author Name Unknown Organization [place] [address] Care Team Providers Care Commodities Trader Name Role Phone Kevin Whiteside Primary Care Provider Reason for Visit * Reason Comments Left Message Encounter Details Date Type Department Care Team Description 09/21/2018 Pharmacy Pharmacy, [facility] [address] [facility] [place] [address] Sp, [facility] [address] [facility] [place] [address] [phone] Uncontrolled type 2 diabetes mellitus with stage 3 chronic kidney disease, with long-term current use of insulin ([facility])*; Type 2 diabetes mellitus with [...] Each 5 08/01/2018 Active ergocalciferol (VITAMIN D2,DRISDOL,) 43144 UNIT CapsuleIndications:V itamin D deficiency Take 1 [...] of insulin ([facility]) Take 1 Tab by mouth 3 times a day. 90 Tab 11 09/04/2018 Active clonazePAM (KLONOPIN) 0.5 MG TabletIndications:An xiety state TAKE ONE TABLET BY MOUTH TWICE DAILY 180 Tab 3 09/11/2018 Active as of this encounter Active Problems [...] 10/14/2014 Overview: ICD-10 update of inactive term [place] filter in place 08/19/2014 History of pulmonary [...] as of this encounter Progress Notes * Crista Norman, ELISSA - 09/21/2018 10:16 AM EST Patient Phone Numbers Called patient - lm offering to reschedule DM appt. Follow up in 2 weeks if no response sooner. in this encounter Plan of Treatment Upcoming Encounters Date Type Specialty Care Team Description 09/21/2018 Pharmacy Pharmacy , [facility] [address] [facility] [place] [address] [phone] Uncontrolled type 2 diabetes mellitus with stage 3 chronic kidney disease, with long-term current use of insulin ([facility])*; Type 2 diabetes mellitus with hemoglobin A1c goal of 7.0%-8.0% ([facility]) 10/06/2018 Pharmacy Pharmacy , [facility] [address] [facility] [place] [address] [phone] 10/23/2018 Office Visit Cardiology Marjorie Powell PA-C [address] [facility] [place] [address] [phone] 12/04/2018 Office Visit Family Medicine Kevin Whiteside DO [address] [facility] [place] [address] [phone] 01/24/2019 Office Visit Nephrology Gia White MD [address] [facility] [place] [id number] 03/14/2019 Office Visit Cardiology Rey Woodall MD [address] [facility] [place] [address] [phone] 05/04/2019 Office Visit Sleep Disorders Celsa Tafoya CRNP [address] [place] [address] [phone] Health Maintenance Due Date Last Done Comments DIABETES-EYE EXAM 02/24/2011 02/24/2010 (Do ne elsewhere), 12/18/2009, 02/18/2008 (Done elsewhere) PAP SMEAR-EVERY 3 YRS,AGES 21-65 05/11/2016 05/11/2013, 03/01/2008, 10/19/2006, Additional history exists DIABETES-HGBA1C EVERY 6 MONTHS 11/01/2018 05/01/2018, 12/29/2017, 07/14/2017, Additional history exists CKD PHOS USE SMARTSET 01501 12/29/2018 12/29/2017, 08/26/2009, 08/25/2009, Additional history exists DIABETES-FOOT EXAM 12/29/2018 12/29/2017, 0 10/21/2016, 12/11/2015, Additional history exists CKD GFR USE SMARTSET 58213 01/29/201908/01, 06/27/2018, 06/12/2018, Additional history exists Yearly B-12 05/16/2019 05/16/2018 CKD HGB USE SMARTSET 35374 06/06/201906/06, 06/05/2018, 12/26/2017, Additional history exists BREAST [...] For more information, please contact: [place] [phone] Latest Code Status on File Code Status [...]
--- OUTSIDE RECORDS SUMMARY | 2023-06-01 05:57 | External Medical Summary | Summary of Care ---
Author Name Unknown Organization [place] [address] Care Team Providers Care Finance Business Manager Name Role Phone Kevin Whiteside DO Primary Care Provider Reason for Visit * Reason Comments Medication Question Encounter Details Date Type Department Care Team Description 08/30/2018 Telephone Family Practice [facility] [address] [facility] [place] [address] Kevin Whiteside DO [address] [facility] [address] Medication Question Allergies Active Allergy Reactions Severity [...] 06/10/2018 Active furosemide (LASIX) 40 MG TabletIndications:Ac kaibab diastolic congestive heart failure (HCC) Take 80mg [...] Each 5 08/01/2018 Active ergocalciferol (VITAMIN D2,DRISDOL,) 46893 UNIT CapsuleIndications:V itamin D deficiency Take 1 [...] Problems Problem Noted Date Resolved Date Vaginal karemn 07/13/2018 08/26/2018 Hypervolemia 07/13/2018 08/26/2018 [...] 08/30/2018 12:49 PM EST Ramiro calling from [facility] to advise that pt has new insurance, and they do not cover OneTouch products. States the preferred is Accu-Chek products. Ramiro suggested switching to the Accu-Chek Danielle Plus meter, and coordinating strips and lancets. Please approve, if appropriate. Thanks, Masha Pickard CPhT Personal Secretary Pharmacy Refill Call Center 08/30/2018, 12:52 PM in this encounter Plan of Treatment Upcoming Encounters Date Type Specialty Care Team Description 09/04/2018 Office Visit Family Medicine Kevin Whiteside DO [address] [place] [address] [phone] 09/07/2018 Pharmacy Pharmacy Sp, [facility] [address] [facility] [place] [address] [phone] 10/23/2018 Office Visit Cardiology Marjorie Powell PA-C [address] [place] [address] [phone] 01/24/2019 [facility] [place] [address] [phone] 03/14/2019 Office Visit Cardiology Rey Woodall MD [address] [place] [address] [phone] 05/04/2019 Office Visit Sleep Disorders Celsa Tafoya CRNP [address] [place] [address] [phone] Health Maintenance Due Date Last Done Comments DIABETES-EYE EXAM 02/24/2011 02/24/2010 (Do ne elsewhere), 12/18/2009, 02/18/2008 (Done elsewhere) PAP SMEAR-EVERY 3 YRS,AGES 21-65 05/11/2016 05/11/2013, 03/01/2008, 10/19/2006, Additional history exists DIABETES-HGBA1C EVERY 6 MONTHS 11/01/2018 05/01/2018, 12/29/2017, 07/14/2017, Additional history exists CKD PHOS USE SMARTSET 62176 12/29/2018 12/29/2017, 08/26/2009, 08/25/2009, Additional history exists DIABETES-FOOT EXAM 12/29/2018 12/29/2017, 0 10/21/2016, 12/11/2015, Additional history exists CKD GFR USE SMARTSET 68754 01/29/201908/01, 06/27/2018, 06/12/2018, Additional history exists Yearly B-12 05/16/2019 05/16/2018 CKD HGB USE SMARTSET 29342 06/06/201906/06, 06/05/2018, 12/26/2017, Additional history exists BREAST [...] For more information, please contact: [place] [phone] Latest Code Status on File Code Status [...]
--- OUTSIDE RECORDS SUMMARY | 2023-06-01 05:57 | External Medical Summary ---
Author Name Unknown Address [address] [facility] [place] [address] Phone Organization K0G:TRIN[facility] Bobo Ordaz [address] [facility] [place] [address] Laboratory Report Ordering Provider Test Date Status LONG CAMARENA 09/27/2018 13:48:00 Final Observation Date Value Abnormality Reference Status BUN 09/27/2018 14:32 42 Above high normal 6-20 Final Creatinine 09/27/2018 14:32 1.6 Above high normal 0.5- 1.0 Final Performing Location [facility] Jeramie Ordaz [address] [place] [address]
--- OUTSIDE RECORDS SUMMARY | 2023-06-01 05:57 | External Medical Summary ---
Author Name Unknown Address [address] [place] [address] Phone Organization K01:[facility] [address] [place] [id number] Laboratory Report Ordering Provider Test Date Status LONG CAMARENA 09/04/2018 14:27:00 Final Observation Date Value Abnormality Reference Status Benzodiaz Cfm Meth Ur 09/07/2018 14:38 LCMSMS Final A-OH Alpraz communication engineer Ur [facility] 09/07/2018 14:38 NEGATIVE NEG Final 7-Aminoclonazepam Ur [facility] 09/07/2018 14:38 >20 Abn ormal NEG Final Nordiazepam communication engineer Ur [facility] 09/07/2018 14:38 NEGATIVE NEG Final Oxazepam communication engineer Ur [facility] 09/07/2018 14:38 NEGATIVE NEG Final Temazepam communication engineer Ur [facility] 09/07/2018 14:38 NEGATIVE NEG Final Lorazepam communication engineer Ur [facility] 09/07/2018 14:38 NEGATIVE NEG Final 1-Hydroxymidazolam Ur [facility] 09/07/2018 14:38 NEGATIVE NEG Final Zolpidem Ur [facility] 09/07/2018 14:38 NEGATIVE NE G Final Zolpidem [id number] e in urine, confirm 09/07/2018 14:38 NEGATIVE NEG Final Testosterone Comment 09/07/2018 14:38 Final Performing Location [address] [address]
--- OUTSIDE RECORDS SUMMARY | 2023-06-01 05:57 | External Medical Summary ---
Author Name Unknown Address [facility] [place] [address] Phone Organization K01:[facility] [address] [id number] Laboratory Report Ordering Provider Test Date Status LONG CAMARENA 09/04/2018 14:27:00 Final Observation Date Value Abnormality Reference Status COMPLIANCE INTERP 09/08/2018 09:07 (NOTE) Final Performing Location [facility] [address] [id number]
--- OUTSIDE RECORDS SUMMARY | 2023-06-01 05:57 | External Medical Summary | Summary of Care ---
Author Name Unknown Organization [place] [address] Care Team Providers Care Grain Trader Name Role Phone Kevin Whiteside DO Primary Care Provider Reason for Visit * Reason Comments Medication Question Encounter Details Date Type Department Care Team Description 08/30/2018 Telephone Family Practice [facility] [address] [facility] [address] Kevin Whiteside DO [address] [facility] [address] Medication Question Allergies Active Allergy Reactions [...] CPDR one tablet daily 0 Active oxygen GASIndications:LEISSA (obstructive sleep apnea) 4 LPM bled through CPAP 11 cwp during all periods of sleep. 1 Each 0 04/07/2016 Active docusate sodium (STOOL SOFTENER) 100 MG Capsule Take 100 mg by mouth 2 times a day as needed for Constipation. 0 Active MAG64 64 MG TBEC Take 64 mg by mouth 2 times a day. 0 06/10/2018 Active furosemide (LASIX) 40 MG TabletIndications:[place] diastolic congestive heart failure (HCC) Take 80mg [...] Each 5 08/01/2018 Active ergocalciferol (VITAMIN D2,DRISDOL,) 13904 UNIT CapsuleIndications:V itamin D deficiency Take 1 [...] encounter Miscellaneous Notes * Telephone Encounter - Parish Shepherd, utility pipe layer - 08/31/2018 9:06 AM EST Pharmacy calling stating pt needs medicare Part B vs. Part D determination on (ACCU-CHEK DANIELLE PLUS) STRP, (ACCU-CHEK DANIELLE PLUS) w/Device KIT, ACCU-CHEK SOFTCLIX LANCETS MISC Pharmacy states that pt does not have Part B, stated they tried to resolve with insurance but insurance stated they need to be contacted by dr's office. [facility] calling to inform doctor that the pt's insurance will not pay for this medication without a completed prior authorization. Please complete prior authorization with the following information: Patient name: Stephanie Camp ID number: [id number] BIN number: [id number] PCN number: [id number] Subscriber name: Stephanie Camp Medication: (ACCU-CHEK DANIELLE PLUS) STRP, (ACCU-CHEK DANIELLE PLUS) w/Device KIT, ACCU-CHEK SOFTCLIX LANCETS MISC Reason for PA: Part B vs Part D determination Pharmacy: [facility] [id number] Rx plan and phone number: [employer] [phone] Formulary alternatives: n/a List of medications pt has tried and failed: n/a Thank you, Parish Shepherd Fixer [facility]ing [facility] Refill Call Center 08/31/2018, 9:07 AM * Telephone Encounter - Kevin Whiteside DO - 08/30/2018 5:19 PM EST approved * Telephone Encounter - Masha Pickard CPhT - 08/30/2018 12:49 PM EST Ramiro calling from [facility] to advise that pt has new insurance, and they do not cover OneTouch products. States the preferred is Accu-Chek products. Ramiro suggested switching to the Accu-Chek Danielle Plus meter, and coordinating strips and lancets. Please approve, if appropriate. Thanks, Masha Pickard CPhT Installation Superintendent Pharmacy Refill Call Center 08/30/2018, 12:52 PM in this encounter Plan of Treatment Upcoming Encounters Date Type Specialty Care Team Description 09/04/2018 Office Visit Family Medicine Kevin Whiteside DO [address] [place] [address] [phone] 09/07/2018 Pharmacy Pharmacy , [facility] [address] [facility] [address] [phone] 10/23/2018 Office Visit Cardiology Marjorie Powell PA-C [address] [place] [address] [phone] 01/24/2019 Office Visit Nephrology Gia White MD 21 [facility] [place] [id number] 03/14/2019 Office Visit Cardiology Rey Woodall MD [address] [place] [address] [phone] 05/04/2019 Office Visit Sleep Disorders Celsa Tafoya CRNP [address] [place] [address] [phone] Health Maintenance Due Date Last Done Comments DIABETES-EYE EXAM 02/24/2011 02/24/2010 (Do ne elsewhere), 12/18/2009, 02/18/2008 (Done elsewhere) PAP SMEAR-EVERY 3 YRS,AGES 21-65 05/11/2016 05/11/2013, 03/01/2008, 10/19/2006, Additional history exists DIABETES-HGBA1C EVERY 6 MONTHS 11/01/2018 05/01/2018, 12/29/2017, 07/14/2017, Additional history exists CKD PHOS USE SMARTSET 42741 12/29/2018 12/29/2017, 08/26/2009, 08/25/2009, Additional history exists DIABETES-FOOT EXAM 12/29/2018 12/29/2017, 0 10/21/2016, 12/11/2015, Additional history exists CKD GFR USE SMARTSET 39671 01/29/201908/01, 06/27/2018, 06/12/2018, Additional history exists Yearly B-12 05/16/2019 05/16/2018 CKD HGB USE SMARTSET 90313 06/06/201906/06, 06/05/2018, 12/26/2017, Additional history exists BREAST [...] For more information, please contact: [place] [phone] Latest Code Status on File Code Status [...]
--- OUTSIDE RECORDS SUMMARY | 2023-06-01 05:58 | External Medical Summary | Summary of Care ---
Author Name Unknown Organization [place] [address] Care Team Providers Care Carpenter Supervisor Name Role Phone Kevin Whiteside Primary Care Provider Reason for Visit * Reason Comments Extremity Weakness BLE weakness Encounter Details Date Type Department Care Team Description 08/26/2018 Office Visit [place] [address] [facility] [place] [address] Amadou Galeana MD [address] [facility] [place] [address] Leg weakness, bilateral*; Fibromyalgia; Abnormality of gait; [place] filter in place; Acute bilateral thoracic back pain; Restless legs syndrome; History of pulmonary embolus (PE); HTN, goal below 130/80; Body mass index (BMI) of 50.0 to 59.9 in adult ([facility]); Mild episode of recurrent major depressive disorder ([facility]); Chronic diastolic congestive heart failure ([facility]); Postsurgical hypothyroidism; ELISSA (obstructive sleep apnea); Type 2 diabetes mellitus with hemoglobin A1c goal of 7.0%-8.0% ([facility]); Uncontrolled type 2 diabetes mellitus with stage 3 chronic kidney disease, with long-term current use of insulin ([facility]) Allergies Active Allergy Reactions Severity Noted Date [...] Each 5 08/01/2018 Active ergocalciferol (VITAMIN D2,DRISDOL,) 05352 UNIT CapsuleIndications:V itamin D deficiency Take 1 [...] 10/14/2014 Overview: ICD-10 update of inactive term [place] filter in place 08/19/2014 History of pulmonary [...] Vital Sign Reading Time Taken Blood Pressure 128/62 08/26/2018 10:27 AM EST Pulse 84 08/26/2018 10:27 AM EST Temperature 36.6 C (97.8 F) 08/26/2018 1 0:27 AM EST Respiratory Rate - - Oxygen Saturation - - Inhaled Oxygen Concentration - - Weight 156.2 kg (344 lb 4.8 oz) 018 10:27 AM EST Height - - Body Mass Index 58.71 08/26/2018 10:27 AM EST in this encounter Progress Notes * Amadou Galeana MD - 08/26/2018 10:49 AM EST SUBJECTIVE: Stephanie Camp is a 63 year old female. CC: Chief Complaint Patient presents with Extremity Weakness BLE weakness Nursing Notes: Tasha Brito LPN 08/26/18 1041 Signed Patient says she's been having trouble with her legs and keeping her balance. HPI: This is a morbidly obese 63 year old female with an extensive medical history including uncontrolled type 2 diabetes, ELISSA, fibromyalgia, generalized deconditions, chronic osteoarthritic pain, and polypharmacy who comes in today wondering why her legs are feeling weak. She has recently been participating in physical therapy for "her trapezius muscles." She feels that it is helping. She walks with a cane. She says that for the past 48 hours her legs "don't want to work." She feels weak when trying to stand up. She has balance issues, but these are longstanding as evidenced by the fact she uses a cane. She wonders if "all this is just from my fibromyalgia?" She does not have particularly good insight. PHM: Patient Active Problem List Diagnosis Code Primary [...] 7.0%-8.0% ([facility]) E11.9 Fibromyalgia M79.7 Abnormality of gait R26.9 Restless legs syndrome G25.81 Gastroesophageal reflux disease with esophagitis K21.0 Uncontrolled type 2 diabetes mellitus with stage 3 chronic kidney disease, with long-term current use of insulin ([facility]) E11.22, E11.65, N18.3, Z79.4 Body mass index (BMI) of 50.0 to 59.9 in adult ([facility]) Z68.43 Controlled substance agreement signed Z79.899 Chronic diastolic congestive heart failure ([facility]) I50.32 Thoracic back pain M54.6 Mild episode of recurrent major depressive disorder ([facility]) F33.0 Past Surgical History: Procedure Laterality Date ARTHROPLASTY KNEE TOTAL Right 07/24/14 R CANCELLED PROCEDURE N/A 06/03/2011 Performed by Danny Holder DO at OR [facility] CHOLECYSTECTOMY N/A 09/06/2009 Performed by Amadou Smith MD at OR [facility] COLONOSCOPY, DIAGNOSTIC (RECTUM) 02/18/2016 normal, repeat 10 yrs/[facility] COLONOSCOPY, GI REFERRAL OP 01/28/06 diverticulosis--repeat 10 years GASTROSTOMY WITH CONSTUCTION GASTRIC TUBE N/A 09/06/2009 Performed by Amadou Smith MD at OR [facility] INCISION OF WINDPIPE, PLANNED 06/03/2011 TRACHEOSTOMY PLANNED performed by DANNY HOLDER at OR [facility] KNEE ARTHROSCOPY/DEBRIDEMENT 07/[address] PERMANENT GASTROSTOMY TUBE 09/06/09 GASTROSTOMY WITH CONSTUCTION GASTRIC TUBE performed by AMADOU SMITH at OR [facility] REMOVAL OF THYROID GLAND 06/15/2011 THYROIDECTOMY INCLUDING SUBSTERNAL THYROID CERVICAL APPROACH performed by DANNY HOLDER at OR [facility] REMOVE GALLBLADDER 09/06/09 CHOLECYSTECTOMY performed by AMADOU SMITH at OR [facility] REPAIR RECURRENT INCISIONAL HERNIA 1998 REVISION OF COLOSTOMY, SIMPLE 1998 SUTURE, LARGE INTESTINE W/COLOSTOMY 1996 perforation R colon with colostomy THYROIDECTOMY INCLUDING SUBSTERNAL THYROID CERVICAL APPROACH N/A 06/15/2011 Performed by Danny Holder DO at OR [facility] TRACHEOSTOMY PLANNED N/A 06/03/2011 Performed by Danny Holder DO at OR [facility] VENA CAVA FILTER/LIGATION/CLIP 08/19/09 Frank filter placement through the right femoral 08/19/[address]erma [address] 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 cyclobenzaprine (FLEXERIL) 10 MG Tablet TAKE ONE TABLET BY MOUTH AT BEDTIME NEEDED FOR MUSCLE SPASM gabapentin (NEURONTIN) 300 MG Capsule Take one capsule by mouth three times daily Glucose Blood (ONETOUCH ULTRA BLUE) STRP Check sugars 3-4 times daily Insulin Degludec (TRESIBA FLEXTOUCH) 200 UNIT/ML SOPN Inject up to 160 units daily as directed levothyroxine (LEVOXYL) 200 MCG [...] heat intol/ 3 p's): Negative Neuro (shaking/weak/fatigu/parasthesi/): see above hpi Skin (rash/easy bruis/xerosis): Negative Psy (si/hi/halluc/): Negative (nocturia/hesit/drib/sexual review): Negative Lymph (swollen glands/b sx's/: Negative OBJECTIVE: BP 128/62 | Pulse 84 | Temp (Src) 97.8 (Tympanic) | Wt 344 lbs 4.8 oz (156.173kg) | BMI 58.71 kg/m | BSA 2.66 m | LMP 03/11/2003 General: alert, morbidly obese, uses cane Skin: skin color, texture, turgor are normal, [...] radial=2/4, carotid=2/4 w/o bruits, posterior tibial=2/4 Abdomen: obese; prior hernia scar well-healed; large pannus Extremities: bilateral lymphedema ASSESSMENT/PLAN: Stephanie was seen today for extremity weakness. Chronic problems are at baseline. The leg weakness islikely multifactorial and related to weight, deconditioning, and polypharmacy. Will check lumbar spine film and CK to ensure nothing more sinister is going on. Discussed with patient who's in agreement with plan. Diagnoses and all orders for this visit: Leg weakness, bilateral - CK; Future - XR L SPINE AP AND LATERAL Fibromyalgia Abnormality of gait Frank filter in place Acute bilateral thoracic back pain Restless legs syndrome History of pulmonary embolus (PE) HTN, goal below 130/80 Body mass index (BMI) of 50.0 to 59.9 in adult (HCC) Mild episode of recurrent major depressive disorder (HCC) Chronic diastolic congestive heart failure (HCC) Postsurgical hypothyroidism ELISSA (obstructive sleep apnea) Type 2 diabetes mellitus with hemoglobin A1c goal of 7.0%-8.0% (HCC) Uncontrolled type 2 diabetes mellitus with stage 3 chronic kidney disease, with long-term current use of insulin ([facility]) Check-out note: X-ray now then lab before leaving Amadou Galeana MD in this encounter Nursing Notes * Tasha Brito, CIRCUS ROUSTABOUT - 08/26/2018 10:28 AM EST Patient says she's been having trouble with her legs and keeping her balance. in this encounter Plan of Treatment Upcoming Encounters Date Type Specialty Care Team Description 08/29/2018 Office Visit Gastroenterology Migdalia Jacobs, DO [address] [place] [address] 09/07/2018 Pharmacy Pharmacy , [facility] [address] [place] [address] [phone] 10/23/2018 Office Visit Cardiology Marjorie Powell PA-C [address] [place] [address] [phone] 01/24/2019 Office Visit Nephrology Gia White MD [address] [place] [address] 03/14/2019 Office Visit Cardiology Rey [facility]all MD [address] [facility] [place] [address] 05/04/2019 Office Visit Sleep Disorders Celsa Tafoya CRNP [address] [facility] [address] Scheduled Tests Name Priority Associated Diagnoses Order S chedule CK Routine Leg weakness, bilateral Expected: 08/26/2018 (Approximate), Expires: 08/26/2019 XR L SPINE AP AND LATERAL Routine Leg weakness, bilateral Ordered: 08/26/2018 Health Maintenance Due Date Last Done Comments DIABETES-EYE EXAM 02/24/2011 02/24/2010 (Do ne elsewhere), 12/18/2009, 02/18/2008 (Done elsewhere) PAP SMEAR-EVERY 3 YRS,AGES 21-65 05/11/2016 05/11/2013, 03/01/2008, 10/19/2006, Additional history exists DIABETES-HGBA1C EVERY 6 MONTHS 11/01/2018 05/01/2018, 12/29/2017, 07/14/2017, Additional history exists CKD PHOS USE SMARTSET 51546 12/29/2018 12/29/2017, 08/26/2009, 08/25/2009, Additional history exists DIABETES-FOOT EXAM 12/29/2018 12/29/2017, 0 10/21/2016, 12/11/2015, Additional history exists CKD GFR USE SMARTSET 86180 01/29/201908/01, 06/27/2018, 06/12/2018, Additional history exists Yearly B-12 05/16/2019 05/16/2018 CKD HGB USE SMARTSET 82140 06/06/201906/06, 06/05/2018, 12/26/2017, Additional history exists BREAST [...] fileas of this encounter Visit Diagnoses Diagnosis Leg weakness, bilateral- Primary Other musculoskeletal symptoms referable to limbs Fibromyalgia Mylagia and myositis, unspecified Abnormality of gait [place] filter in place Other postprocedural status Acute bilateral thoracic back pain Restless legs syndrome Restless legs syndrome (RLS) History of pulmonary embolus (PE) Personal history of pulmonary embolism HTN, goal below 130/80 Unspecified essential hypertension Body mass index (BMI) of 50.0 to 59.9 in adult (HCC) Mild episode of recurrent major depressive disorder (HCC) Chronic diastolic congestive heart failure (HCC) Chronic diastolic heart failure Postsurgical hypothyroidism ELISSA (obstructive sleep apnea) Obstructive sleep apnea (adult) (pediatric) Type 2 diabetes mellitus with hemoglobin A1c goal of 7.0%-8.0% (HCC) Uncontrolled type 2 diabetes mellitus with stage 3 chronic kidney disease, with long-term current use of insulin (HCC) in this encounter Advance Directives Patient has advance care planning documents, and code status on file. For more information, please contact: [place] [phone] Latest Code Status on File Code Status [...]
--- OUTSIDE RECORDS SUMMARY | 2023-06-01 05:58 | External Medical Summary ---
Author Name Unknown Address [address] [id number] Phone Organization K01:[facility] [address] [id number] Laboratory Report Ordering Provider Test Date Status SAMIRA TOBAR 08/26/2018 11:52:00 Final Observation Date Value Abnormality Reference Status CK 08/26/2018 19:23 214 Above high normal 26-19 2 Final Performing Location [facility] [address] [facility] [address]
--- OUTSIDE RECORDS SUMMARY | 2023-06-01 05:58 | External Medical Summary | Summary of Care ---
Author Name Unknown Organization [place] [address] Care Team Providers Care Fur Tinter Name Role Phone Kevin Whiteside Primary Care Provider Reason for Visit * Reason Comments Test Results Encounter Details Date Type Department Care Team Description 08/02/2018 Telephone Nephrology 2nd Floor, [place] [address] [facility] [place] [address] iGa White MD 21 [place] [address] Test Results Allergies Active Allergy Reactions [...] other days 35 Tab 5 07/03/2018 Active insulin aspart (NOVOLOG FLEXPEN) 100 UNIT/ML SOPN Inject 18 units breakfast, 10 units with lunch and 18 units with dinner plus sliding scale up to 100 units per day 10 Pre-filled Pen Syringe Dosing Unit 5 07/13/2018 Active clonazePAM (KLONOPIN) 0.5 MG TabletIndications:An xiety state TAKE ONE TABLET BY MOUTH TWICE DAILY 60 Tab 0 07/18/2018 Active cyclobenzaprine (FLEXERIL) 10 MG Tablet TAKE [...] Each 5 08/01/2018 Active ergocalciferol (VITAMIN D2,DRISDOL,) 87871 UNIT CapsuleIndications:V itamin D deficiency Take 1 Cap by mouth once a week. 13 Cap 1 08/02/2018 Active as of this encounter Active Problems Problem Noted Date Thoracic back pain 07/25/2018 Vaginal karmen 07/13/2018 Hypervolemia 07/13/2018 Chronic diastolic congestive heart failu re 06/12/2018 Heparin-induced thrombocytopenia 018 ELSIE (acute kidney injury) 06/12/2018 Controlled substance agreement signed Body mass [...] 10/14/2014 Overview: ICD-10 update of inactive term [place] filter in place 08/19/2014 History of pulmonary embolus (PE) 2013 Statin intolerance 07/16/2014 HTN, goal below 130/80 02/22/2014 Venous insufficiency 02/07/2013 ELISSA (obstructive sleep apnea) 09/16/2011 Overview: CPAP 11 cwp Mild, AHI 11.3 but with significant nocturnal hypoxemia Dicks Hypoxemia 07/22/2011 Overview: Nocturnal ox 2 LPM 07/20/11 -- mean 84%, low 76%, time <89% 6:21 hours, TINY 47 DHC Postsurgical hypothyroidism 06/16/2011 Depression with anxiety 09/13/2009 DYSLIPIDEMIA, GOAL LDL BELOW 100 009 Overview: Per Lipid Taxonomy. Primary localized osteoarthrosis, lower leg 07/04/2008 ADVANCE DIRECTIVE INFORMATION 03/01/2006 Overview: Pt has booklet. Other allergic rhinitis 12/31/2003 Overview: ICD-10 update of inactive term as of this encounter Resolved Problems Problem Noted Date Resolved Date Kidney disease, chronic, stage III (GFR 30-59 [...] 160 08/16/2007 09/04/2009 Overview: Per Lipid Taxonomy. HTN, goal below 140/90 04/09/2003 0 Overview: [...] Telephone Encounter - Teri Cullen RN - 08/02/2018 10:29 AM EST Reviewed results and new orders with pt. Pt verbalized understanding * Telephone Encounter - Teri Cullen RN - 08/02/2018 10:24 AM EST ----- Message from Gia White MD sent at 08/01/2018 4:38 PM EST ----- Vitamin-D is low. PTH is high. Recommend ergo calciferol 18408 units weekly. Gia White MD in this encounter Plan of Treatment Upcoming Encounters Date Type Specialty Care Team Description 08/03/2018 Pharmacy Pharmacy , [facility] [address] [facility] [address] [phone] 08/29/2018 Office Visit Gastroenterology Migdalia Jacobs, DO [address] [facility], [place] [id number] 10/23/2018 Office Visit Cardiology Marjorie Powell, PA-C [address] [facility] [place] [address] [phone] 01/24/2019 Office Visit Nephrology Gia White MD [address] [place] [address] [phone] 03/14/2019 Office Visit Cardiology Rey Woodall MD [address] [facility] [place] [address] [phone] 05/04/2019 Office Visit Sleep Disorders Celsa Tafoya CRNP [address] [facility] [place] [address] Health Maintenance Due Date Last Done Comments DIABETES-EYE EXAM 02/24/2011 02/24/2010 (Do ne elsewhere), 12/18/2009, 02/18/2008 (Done elsewhere) PAP SMEAR-EVERY 3 YRS,AGES 21-65 05/11/2016 05/11/2013, 03/01/2008, 10/19/2006, Additional history exists DIABETES-HGBA1C EVERY 6 MONTHS 11/01/2018 05/01/2018, 12/29/2017, 07/14/2017, Additional history exists CKD PHOS USE SMARTSET 45538 12/29/2018 12/29/2017, 08/26/2009, 08/25/2009, Additional history exists DIABETES-FOOT EXAM 12/29/2018 12/29/2017, 0 10/21/2016, 12/11/2015, Additional history exists CKD GFR USE SMARTSET 14755 01/29/201908/01, 06/27/2018, 06/12/2018, Additional history exists Yearly B-12 05/16/2019 05/16/2018 CKD HGB USE SMARTSET 19293 06/06/201906/06, 06/05/2018, 12/26/2017, Additional history exists BREAST [...] fileas of this encounter Visit Diagnoses Diagnosis Vitamin D deficiency- Primary Unspecified vitamin D deficiency in this encounter Advance Directives Patient has advance care planning documents, and code status on file. For more information, please contact: [place] [phone] Latest Code Status on File Code Status [...]
--- OUTSIDE RECORDS SUMMARY | 2023-06-01 05:58 | External Medical Summary | Summary of Care ---
Author Name Unknown Organization [place] [address] Care Team Providers Care Home Health Care Respiratory Therapist Name Role Phone Kevin Whiteside Primary Care Provider Reason for Visit * Reason Comments Dosage Adjustment Via Phone (anticoag Cl inic) Diabetes Follow-Up Encounter Details Date Type Department Care Team Description 08/03/2018 Pharmacy Pharmacy, [facility] [address] [facility] [place] [address] Sp, [facility] [address] [facility] [place] [address] [phone] Uncontrolled type 2 diabetes mellitus with stage 3 chronic kidney disease, with long-term current use of insulin ([facility])*; Type 2 diabetes mellitus with hemoglobin A1c goal of 7.0%-8.0% ([facility]) Allergies Active Allergy Reactions Severity Noted [...] 06/10/2018 Active furosemide (LASIX) 40 MG TabletIndications:Ac nez perce diastolic congestive heart failure (HCC) Take 80mg 3 days per week and 40mg all other days 35 Tab 5 07/03/2018 Active insulin aspart (NOVOLOG FLEXPEN) 100 UNIT/ML SOPN Inject 18 units breakfast, 10 units with lunch and 18 units with dinner plus sliding scale up to 100 units per day 10 Pre-filled Pen Syringe Dosing Unit 5 07/13/2018 Active cyclobenzaprine (FLEXERIL) 10 MG Tablet TAKE [...] Each 5 08/01/2018 Active ergocalciferol (VITAMIN D2,DRISDOL,) 29229 UNIT CapsuleIndications:V itamin D deficiency Take 1 [...] of this encounter Progress Notes * Frances Ellis, [facility] - 08/10/2018 8:04 AM EST Diabetes telephone follow - up 08/10/2018 Patient Phone Numbers - Reason for call: Calling patient to follow up on recent blood sugars. No answer, left message. MTM to try to schedule inperson visit + poc a1c. Frances Duong, Pharm D, BCACP Clinical Pharmacist [facility] 08/10/2018, 8:05 AM in this encounter Plan of Treatment Upcoming Encounters Date Type Specialty Care Team Description 08/23/2018 Pharmacy Pharmacy , [facility] [address] [place] [address] [phone] 08/29/2018 Office Visit [facility]enterology Migdalia Jacobs, DO [address] [facility] [id number] 10/23/2018 Office Visit Cardiology Marjorie Powell PA-C [address] [place] [address] [phone] 01/24/2019 Office Visit Nephrology Gia White MD [address] [place], [place] [phone] 03/14/2019 Office Visit Cardiology Rey Woodall MD 132 [facility] [place] [address] [phone] 05/04/2019 Office Visit Sleep Disorders Celsa Tafoya CRNP [address] [facility] [place] [address] [phone] Health Maintenance Due Date Last Done Comments DIABETES-EYE EXAM 02/24/2011 02/24/2010 (Do ne elsewhere), 12/18/2009, 02/18/2008 (Done elsewhere) PAP SMEAR-EVERY 3 YRS,AGES 21-65 05/11/2016 05/11/2013, 03/01/2008, 10/19/2006, Additional history exists DIABETES-HGBA1C EVERY 6 MONTHS 11/01/2018 05/01/2018, 12/29/2017, 07/14/2017, Additional history exists CKD PHOS USE SMARTSET 98306 12/29/2018 12/29/2017, 08/26/2009, 08/25/2009, Additional history exists DIABETES-FOOT EXAM 12/29/2018 12/29/2017, 0 10/21/2016, 12/11/2015, Additional history exists CKD GFR USE SMARTSET 38144 01/29/201908/01, 06/27/2018, 06/12/2018, Additional history exists Yearly B-12 05/16/2019 05/16/2018 CKD HGB USE SMARTSET 73726 06/06/201906/06, 06/05/2018, 12/26/2017, Additional history exists BREAST [...] For more information, please contact: [place] [phone] Latest Code Status on File Code Status [...]
--- OUTSIDE RECORDS SUMMARY | 2023-06-01 05:58 | External Medical Summary | Summary of Care ---
Author Name Unknown Organization [place] [address] Care Team Providers Care Preservationist Name Role Phone Kevin Whiteside Primary Care Provider Reason for Visit * Reason Comments Extremity Weakness BLE weakness Encounter Details Date Type Department Care Team Description 08/26/2018 Office Visit [facility] [address] [facility] [place] [address] Amadou Galeana MD [address] [facility] [place] [address] Leg weakness, bilateral*; Fibromyalgia; Abnormality of gait; [place] filter in place; Acute bilateral thoracic back pain; Restless legs syndrome; History of pulmonary embolus (PE); HTN, goal below 130/80; Body mass index (BMI) of 50.0 to 59.9 in adult ([facility]); Mild episode of recurrent major depressive disorder ([facility]); Chronic diastolic congestive heart failure ([facility]); Postsurgical hypothyroidism; ELISSA (obstructive sleep apnea); Type 2 diabetes mellitus with hemoglobin A1c goal of 7.0%-8.0% ([facility]); Uncontrolled type 2 diabetes mellitus with stage 3 chronic kidney disease, with long-term current use of insulin ([facility]) Allergies Active Allergy [...] Each 5 08/01/2018 Active ergocalciferol (VITAMIN D2,DRISDOL,) 06756 UNIT CapsuleIndications:V itamin D deficiency Take 1 [...] 10/14/2014 Overview: ICD-10 update of inactive term [place] filter in place 08/19/2014 History of pulmonary [...] goal of 7.0%-8.0% ([facility]) E11.9 Fibromyalgia M79.7 Abnormality [...] depressive disorder ([facility]) F33.0 Past Surgical History: Procedure Laterality Date ARTHROPLASTY KNEE TOTAL Right 07/24/14 R CANCELLED PROCEDURE N/A 06/03/2011 [place]formed [place] [facility] [place]LE[place] N/A 09/06/2009 Performed by Amadou Smith MD at [place] [facility] [place]OS[place], DIAGNOSTIC (RECTUM) 02/18/2016 normal, repeat 10 yrs/[facility] COLONOSCOPY, GI REFERRAL OP 01/28/06 diverticulosis--repeat 10 years GASTROSTOMY WITH CONSTUCTION GASTRIC TUBE N/A 09/06/2009 Performed by Amadou Smith MD [place] [facility] [place] INCISION OF WINDPIPE, PLANNED 06/03/2011 TRACHEOSTOMY PLANNED performed by DANNY HOLDER at [place] [facility] [place] KNEE ARTHROSCOPY/DEBRIDEMENT 07/[address] PERMANENT GASTROSTOMY TUBE 09/06/09 GASTROSTOMY WITH CONSTUCTION GASTRIC TUBE performed by AMADOU SMITH at [place] [facility] [place] REMOVAL OF THYROID GLAND 06/15/2011 THYROIDECTOMY INCLUDING SUBSTERNAL THYROID CERVICAL APPROACH performed by DANNY HOLDER at [place] [facility] [place] REMOVE GALLBLADDER 09/06/09 CHOLECYSTECTOMY performed by AMADOU SMITH at [place] [facility] [place] REPAIR RECURRENT INCISIONAL HERNIA 1998 REVISION OF COLOSTOMY, SIMPLE 1998 SUTURE, LARGE INTESTINE W/COLOSTOMY 1996 perforation R colon with colostomy THYROIDECTOMY INCLUDING SUBSTERNAL THYROID CERVICAL APPROACH N/A 06/15/2011 Performed by Danny Holder DO at [place] [facility] [place] TRACHEOSTOMY PLANNED N/A 06/03/2011 Performed by Danny Holder DO at [place] [facility] [place] VENA CAVA FILTER/LIGATION/CLIP 08/19/09 Frank filter placement through the right femoral 08/19/[address] Lerma at [facility] Family History Problem Relation Age of Onset [...] non-medical: Not on file Occupational History Occupation: [employer] Employer: [employer] Occupation: [employer] Employer: [employer] [facility] Tobacco Use Smoking status: Former Smoker Packs/day: 1.00 Years: 15.00 Pack years: 15.00 Last attempt to quit: 08/26/1997 Years since quittin.0 Smokeless tobacco: Never Used Substance and Sexual Activity Alcohol use: Yes Comment: rare Drug use: No Sexual activity: Not on file Other Topics Concern Not on file Social History Narrative 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 [employer] Outpatient Medications Marked as Taking for the 08/26/18 encounter (Office Visit) with Amadou Jerez MD Medication Sig insulin aspart (NOVOLOG FLEXPEN) 100 UNIT/ML SOPN Inject 18 units breakfast, 10 units with lunch and 20 units with dinner plus sliding scale up to 100 units per day clonazePAM (KLONOPIN) 0.5 MG Tablet TAKE ONE TABLET BY MOUTH TWICE DAILY ergocalciferol (VITAMIN D2,DRISDOL,) 17190 UNIT Capsule Take 1 Cap by mouth [...] use of insulin ([facility]) Check-out note: X-ray now then lab before leaving Amadou Galeana MD in this encounter Nursing Notes * Tasha Brito, BANKING ASSISTANT - 08/26/2018 10:28 AM EST Patient says she's been having trouble with her legs and keeping her balance. in this encounter Miscellaneous Notes * Addendum Note - Galen Cabrales TECH - 08/26/2018 11:53 AM EST Addended by: GALEN CABRALES on: 08/26/2018 11:53 AM Modules accepted: Orders in this encounter Plan of Treatment Upcoming Encounters Date Type Specialty Care Team Description 08/29/2018 Office Visit Gastroenterology Migdalia Jacobs, DO [address], [place] [id number] 09/07/2018 Pharmacy Pharmacy , [facility] [address] [place] [address] [phone] 10/23/2018 Office Visit Cardiology Marjorie Powell PA-C 132 [place] [address] [phone] 01/24/2019 Office Visit Nephrology Gia White MD [address] [place] [address] 03/14/2019 Office Visit Cardiology Rey Woodall MD 132 [place] [address] 05/04/2019 Office Visit Sleep Disorders Celsa [facility]af[facility] [address] [facility] [place] [address] Pending Results Name Priority Associated Diagnoses Date/Ti me XR L SPINE AP AND LATERAL Routine Leg weakness, bilateral 08/26/2018 11:43 AM EST Scheduled Tests Name Priority Associated Diagnoses Order S chedule CK Routine Leg weakness, bilateral Expected: 08/26/2018 (Approximate), Expi res: 08/26/2019 Health Maintenance Due Date Last Done Comments DIABETES-EYE EXAM 02/24/2011 02/24/2010 (Do ne elsewhere), 12/18/2009, 02/18/2008 (Done elsewhere) PAP SMEAR-EVERY 3 YRS,AGES 21-65 05/11/2016 05/11/2013, 03/01/2008, 10/19/2006, Additional history exists DIABETES-HGBA1C EVERY 6 MONTHS 11/01/2018 05/01/2018, 12/29/2017, 07/14/2017, Additional history exists CKD PHOS USE SMARTSET 67015 12/29/2018 12/29/2017, 08/26/2009, 08/25/2009, Additional history exists DIABETES-FOOT EXAM 12/29/2018 12/29/2017, 0 10/21/2016, 12/11/2015, Additional history exists CKD GFR USE SMARTSET 01637 01/29/201908/01, 06/27/2018, 06/12/2018, Additional history exists Yearly B-12 05/16/2019 05/16/2018 CKD HGB USE SMARTSET 02607 06/06/201906/06, 06/05/2018, 12/26/2017, Additional history exists BREAST [...] Mylagia and myositis, unspecified Abnormality of gait [place] filter in place Other postprocedural status Acute [...] For more information, please contact: [place] [phone] Latest Code Status on File Code Status [...]
--- OUTSIDE RECORDS SUMMARY | 2023-06-01 05:58 | External Medical Summary | Summary of Care ---
Author Name Unknown Organization [place] [address] Care Team Providers Care Floor Steward/Stewardess Name Role Phone Kevin Whiteside Primary Care Provider Reason for Visit * Reason Comments eRx-Medication Refill Encounter Details Date Type Department Care Team Description 08/16/2018 Refill Family Practice [facility] [address] [facility] [place] [address] Ricardo Mcghee MD [address] [facility] [place] [address] Anxiety state Allergies Active Allergy Reactions [...] Each 5 08/01/2018 Active ergocalciferol (VITAMIN D2,DRISDOL,) 24906 UNIT CapsuleIndications:V itamin D deficiency Take 1 Cap by mouth once a week. 13 Cap 1 08/02/2018 Active clonazePAM (KLONOPIN) 0.5 MG TabletIndications:An xiety state TAKE ONE TABLET BY MOUTH TWICE DAILY 60 Tab 0 08/08/2018 Active as of this encounter Active Problems [...] 10/14/2014 Overview: ICD-10 update of inactive term [place] filter in place 08/19/2014 History of pulmonary [...] Miscellaneous Notes * Telephone Encounter - Angi Jackson LPN - 08/16/2018 2:28 PM EST Refused Prescriptions: Disp Refills clonazePAM (KLONOPIN) 0.5 MG Tablet [Pharm*60 Tab 0 Sig: TAKE ONE TABLET BY MOUTH TWICE DAILY Refused By: ANGI JACKSON PReason for Refusal: Duplicate RequestReason for Refusal Comment: 08/08/18 new script was sent in this encounter Plan of Treatment Upcoming Encounters Date Type Specialty Care Team Description 08/23/2018 Pharmacy Pharmacy Sp, [facility] [address] [facility], [place] [address] [phone] 08/29/2018 Office Visit Gastroenterology Migdalia Jacobs, DO [address] [facility] [address] [phone] 10/23/2018 Office Visit Cardiology Marjorie Powell PA-C [address] [facility] [place] [address] [phone] 01/24/2019 Office Visit Nephrology Gia White MD 21 [facility] [place] [phone] 03/14/2019 Office Visit Cardiology Rey Woodall MD [address] [facility] [place] [address] [phone] 05/04/2019 Office Visit Sleep Disorders Celsa Tafoya CRNP [address] [facility] [place] [address] [phone] Health Maintenance Due Date Last Done Comments DIABETES-EYE EXAM 02/24/2011 02/24/2010 (Do ne elsewhere), 12/18/2009, 02/18/2008 (Done elsewhere) PAP SMEAR-EVERY 3 YRS,AGES 21-65 05/11/2016 05/11/2013, 03/01/2008, 10/19/2006, Additional history exists DIABETES-HGBA1C EVERY 6 MONTHS 11/01/2018 05/01/2018, 12/29/2017, 07/14/2017, Additional history exists CKD PHOS USE SMARTSET 46900 12/29/2018 12/29/2017, 08/26/2009, 08/25/2009, Additional history exists DIABETES-FOOT EXAM 12/29/2018 12/29/2017, 0 10/21/2016, 12/11/2015, Additional history exists CKD GFR USE SMARTSET 62293 01/29/201908/01, 06/27/2018, 06/12/2018, Additional history exists Yearly B-12 05/16/2019 05/16/2018 CKD HGB USE SMARTSET 80912 06/06/201906/06, 06/05/2018, 12/26/2017, Additional history exists BREAST [...] For more information, please contact: [place] [phone] Latest Code Status on File Code Status [...]
--- OUTSIDE RECORDS SUMMARY | 2023-06-01 05:58 | External Medical Summary | Summary of Care ---
Author Name Unknown Organization [place] [address] Care Team Providers Care Offal Baler Name Role Phone Kevin Whiteside Primary Care Provider Reason for Visit * Reason Comments Dosage Adjustment Via Phone (anticoag Cl inic) Diabetes Follow-Up Encounter Details Date Type Department Care Team Description 08/22/2018 Pharmacy Pharmacy, [facility] [address] [facility] [place] [address] Sp, [facility] [address] [facility] [place] [address] [phone] Uncontrolled type 2 diabetes mellitus with stage [...] MUSCLE SPASM 90 Tab 2 8 Active gabapentin (NEURONTIN) 300 MG CapsuleIndications: Neuropathy,Fibromya lgia Take one capsule by mouth three times daily 270 Cap 3 8 Active Insulin Degludec (TRESIBA FLEXTOUCH) [...] Each 5 8 Active ergocalciferol (VITAMIN D2,DRISDOL,) 31312 UNIT CapsuleIndications: Vitamin D deficiency Take 1 [...] Pen Syringe Dosing Unit 5 8 Active insulin aspart (NOVOLOG FLEXPEN) 100 UNIT/ML SOPN Inject 18 units breakfast, 10 units with lunch and 18 units with dinner plus sliding scale up to 100 units per day 10 Pre-filled Pen Syringe Dosing Unit 5 8 08/24/20 18 Discontinued as of this encounter Active [...] 10/14/2014 Overview: ICD-10 update of inactive term [place] filter in place 08/19/2014 History of pulmonary [...] as of this encounter Progress Notes * Krahe Ad, Frances Violettemonique, [facility] - 08/24/2018 11:52 AM EST Diabetes telephone follow - up 08/24/2018 Patient Phone Numbers - Reason for call: Patient had reported high blood sugars this last week. Under a lot of stress bc sister is hospital. Also in a lot of pain. - Current diabetic medications: Increase Tresiba 152 units daily Victoza 1.8 mg daily Novolog 18 units with breakfast, 10 units lunch, 18 units at dinner + CF 1:30 over 120 at meals andbedtime - Glucose review/ SMBG: Running higher lately - lowest reading was 155, also had a 183 in AM. Otherwise, usually running in 200's. Bedtime: 250's last night Breakfast: pre meal 326 this morning - after glass of milk and some cookies at bedtime Therapy Management Assessment/Plan: 1) Diabetes: Increase Tresiba 160 units daily Victoza 1.8 mg daily Increase Novolog 18 units with breakfast, 10 units lunch, 20 units at dinner + CF 1:20 over 120 at meals and bedtime Mailed new correction chart to patient. Follow up in 2 weeks in office. Frances Duong, Pharm D, BCACP Clinical Pharmacist [facility] 08/24/2018, 11:53 AM in this encounter Plan of Treatment Upcoming Encounters Date Type Specialty Care Team Description 08/29/2018 Office Visit Gastroenterology Migdalia Jacobs, [address] [facility] [address] [phone] 09/07/2018 Pharmacy Pharmacy [facility], [facility] [address] [phone] 10/23/2018 Office Visit Cardiology Marjorie Powell PA-C 132 [place] [address] [phone] 01/24/2019 Office Visit Nephrology Gia White MD 21 [place] [address] 03/14/2019 Office Visit Cardiology Rey Woodall MD [address] [place] [address] [phone] 05/04/2019 Office Visit Sleep Disorders Celsa Tafoya CRNP [address] [place] [address] [phone] Health Maintenance Due Date Last Done Comments DIABETES-EYE EXAM 02/24/2011 02/24/2010 (Do ne elsewhere), 12/18/2009, 02/18/2008 (Done elsewhere) PAP SMEAR-EVERY 3 YRS,AGES 21-65 05/11/2016 05/11/2013, 03/01/2008, 10/19/2006, Additional history exists DIABETES-HGBA1C EVERY 6 MONTHS 11/01/2018 05/01/2018, 12/29/2017, 07/14/2017, Additional history exists CKD PHOS USE SMARTSET 11651 12/29/2018 12/29/2017, 08/26/2009, 08/25/2009, Additional history exists DIABETES-FOOT EXAM 12/29/2018 12/29/2017, 0 10/21/2016, 12/11/2015, Additional history exists CKD GFR USE SMARTSET 06183 01/29/201908/01, 06/27/2018, 06/12/2018, Additional history exists Yearly B-12 05/16/2019 05/16/2018 CKD HGB USE SMARTSET 17170 06/06/201906/06, 06/05/2018, 12/26/2017, Additional history exists BREAST [...] For more information, please contact: [place] [phone] Latest Code Status on File Code Status [...]
--- OUTSIDE RECORDS SUMMARY | 2023-06-01 05:58 | External Medical Summary | Summary of Care ---
Author Name Unknown Organization [place] [address] Care Team Providers Care Latent Fingerprint Examiner Name Role Phone Migue Whiteside DO Primary Care Provider Reason for Visit * Reason Comments Medication Refill Encounter Details Date Type Department Care Team Description 08/01/2018 Refill Family Practice [facility] 132 [facility] [place] [address] Migue Whiteside DO [address] [facility] [place] [address] Allergies Active Allergy Reactions Severity [...] other days 35 Tab 5 8 Active insulin aspart (NOVOLOG FLEXPEN) 100 UNIT/ML SOPN Inject 18 units breakfast, 10 units with lunch and 18 units with dinner plus sliding scale up to 100 units per day 10 Pre-filled Pen Syringe Dosing Unit 5 8 Active clonazePAM (KLONOPIN) 0.5 MG TabletIndications:A nxiety state TAKE ONE TABLET BY MOUTH TWICE DAILY 60 Tab 0 8 Active cyclobenzaprine (FLEXERIL) 10 MG [...] 180 Each 5 8 Active Glucose Blood (ONETOUCH ULTRA BLUE) STRP Check sugars four times daily as directed 360 Strip 5 8 08/01/20 18 Discontinued ONETOUCH DELICA LANCETS 33G MISC Check blood sugars twice daily as directed 180 Each 5 8 08/01/20 18 Discontinued as of this encounter Active [...] Telephone Encounter - Migue Whiteside DO - 08/01/2018 2:00 PM EST Signed Prescriptions: Disp Refills Glucose Blood (ONETOUCH ULTRA BLUE) STRP 360 St*5 Sig: Check sugars 3-4 times daily Authorizing Provider: MIGUE WHITESIDE DELICA LANCETS 33G MISC 180 Ea*5 Sig: Check blood sugars 3-4 times daily Authorizing Provider: MIGUE WHITESIDE * Telephone Encounter - Jing Pretty, [facility] - 08/01/2018 1:10 PM EST Pharmacy called to check how many times pt check bs, dr advised 2 times, but pt came into pharmacist and told him 3-4 times. Pre edited. Please approve if appropriate. Pending Prescriptions: Disp Refills Glucose Blood (ONETOUCH ULTRA BLUE) STRP 360 St*5 Sig: Check sugars 3-4 times daily ONETOUCH DELICA LANCETS 33G MISC 180 Ea*5 Sig: Check blood sugars 3-4 times daily Last Office Visit: 08/01/2018 Next Office Visit: No Future Appointments If no future appointments scheduled, and last appointment is greater than a year ago, please schedule patient for a follow-up appointment Last date the medication was ordered: 08/01/18 Patient Phone Numbers Labs: Lab Results Component Value Date/Time CREAT 1.6 (H) 08/01/2018 08:29 AM POTASSIUM 4.4 08/01/2018 08:29 AM TSH 3.14 05/01/2018 09:12 AM LDLCALC 111 08/01/2018 08:29 AM LDLDIRECT 109 07/14/2017 12:35 PM ALT 40 (H) 12/29/2017 12:43 PM HGBA1C 10.0 (H) 05/01/2018 09:12 AM in this encounter Plan of Treatment Upcoming Encounters Date Type Specialty Care Team Description 08/03/2018 Pharmacy Pharmacy Sp, [facility] 200 [place] [address] [phone] 08/29/2018 Office Visit Gastroenterology Migdalia Jacobs, DO [address] [facility] [place] [address] 10/23/2018 Office Visit Cardiology Marjorie Powell PA-C 132 [facility] [place] [address] [phone] 01/24/2019 Office Visit Nephrology Gia White MD 21 [facility] [place], [place] [address] 03/14/2019 Office Visit Cardiology Rey Woodall MD 132 [facility] [place] [address] [phone] 05/04/2019 Office Visit Sleep Disorders Celsa Tafoya CRNP 132 [facility] [place] [address] [phone] Health Maintenance Due Date Last Done Comments DIABETES-EYE EXAM 02/24/2011 02/24/2010 (Do ne elsewhere), 12/18/2009, 02/18/2008 (Done elsewhere) PAP SMEAR-EVERY 3 YRS,AGES 21-65 05/11/2016 05/11/2013, 03/01/2008, 10/19/2006, Additional history exists DIABETES-HGBA1C EVERY 6 MONTHS 11/01/2018 05/01/2018, 12/29/2017, 07/14/2017, Additional history exists CKD GFR USE SMARTSET 93042 12/26/201806/27, 06/12/2018, 06/10/2018, Additional history exists CKD PHOS USE SMARTSET 64770 12/29/2018 12/29/2017, 08/26/2009, 08/25/2009, Additional history exists DIABETES-FOOT EXAM 12/29/2018 12/29/2017, 0 10/21/2016, 12/11/2015, Additional history exists Yearly B-12 05/16/2019 05/16/2018 CKD HGB USE SMARTSET 93915 06/06/201906/06, 06/05/2018, 12/26/2017, Additional history exists BREAST [...] For more information, please contact: [place] [phone] Latest Code Status on File Code Status [...]
--- OUTSIDE RECORDS SUMMARY | 2023-06-01 05:58 | External Medical Summary | Summary of Care ---
Author Name Unknown Organization [place] [address] Care Team Providers Care Ranger Aide Name Role Phone Kevin Whiteside Primary Care Provider Reason for Visit * Reason Comments case management Encounter Details Date Type Department Care Team Description 08/16/2018 Telephone Internal Medicine [address] [address] Frances Nicholson, RN [address] [place] [address] case management Allergies Active Allergy Reactions [...] Each 5 08/01/2018 Active ergocalciferol (VITAMIN D2,DRISDOL,) 70796 UNIT CapsuleIndications:V itamin D deficiency Take 1 [...] encounter Miscellaneous Notes * Telephone Encounter - Farnces Nicholson RN - 08/16/2018 1:02 PM EST Call placed to pt's phone number listed in [facility]. No answer, left message for return call on Frances Nicholson RN, [facility] Head Of Housekeeping [phone] in this encounter Plan of Treatment Upcoming Encounters Date Type Specialty Care Team Description 08/23/2018 Pharmacy Pharmacy Sp, [facility] [address] [place] [address] [phone] 08/29/2018 Office Visit Gastroenterology Migdalia Jacobs, DO [address] [facility] [place] [address] 10/23/2018 Office Visit Cardiology Marjorie Powell PA-C 132 [facility] [place] [address] [phone] 01/24/2019 Office Visit Nephrology Gia White MD 21 [place] [address] 03/14/2019 Office Visit Cardiology Rey Woodall MD 132 [facility] [place] [address] [phone] 05/04/2019 Office Visit Sleep Disorders Celsa Tafoya CRNP 132 [facility] [place] [address] [phone] Health Maintenance Due Date Last Done Comments DIABETES-EYE EXAM 02/24/2011 02/24/2010 (Do ne elsewhere), 12/18/2009, 02/18/2008 (Done elsewhere) PAP SMEAR-EVERY 3 YRS,AGES 21-65 05/11/2016 05/11/2013, 03/01/2008, 10/19/2006, Additional history exists DIABETES-HGBA1C EVERY 6 MONTHS 11/01/2018 05/01/2018, 12/29/2017, 07/14/2017, Additional history exists CKD PHOS USE SMARTSET 81539 12/29/2018 12/29/2017, 08/26/2009, 08/25/2009, Additional history exists DIABETES-FOOT EXAM 12/29/2018 12/29/2017, 0 10/21/2016, 12/11/2015, Additional history exists CKD GFR USE SMARTSET 34633 01/29/201908/01, 06/27/2018, 06/12/2018, Additional history exists Yearly B-12 05/16/2019 05/16/2018 CKD HGB USE SMARTSET 38354 06/06/201906/06, 06/05/2018, 12/26/2017, Additional history exists BREAST [...] For more information, please contact: [place] [phone] Latest Code Status on File Code Status [...]
--- OUTSIDE RECORDS SUMMARY | 2023-06-01 05:58 | External Medical Summary | Summary of Care ---
Author Name Unknown Organization [place] [address] Care Team Providers Care Make Up Operator Name Role Phone Kevin Whiteside Primary Care Provider Reason for Visit * Reason Comments Dosage Adjustment Via Phone (anticoag Cl inic) Diabetes Follow-Up Encounter Details Date Type Department Care Team Description 08/21/2018 Pharmacy Pharmacy, [facility] [address] [facility] [place] [address] Sp, [facility] [address] [facility] [place] [address] [phone] Uncontrolled type 2 diabetes mellitus with stage 3 chronic kidney disease, with long-term current use of insulin ([facility])*; Type 2 diabetes mellitus with hemoglobin A1c goal of 7.0%-8.0% ([facility]) Allergies Active Allergy Reactions [...] 06/10/2018 Active furosemide (LASIX) 40 MG TabletIndications:Ac [place] diastolic congestive heart failure (HCC) Take 80mg [...] Each 5 08/01/2018 Active ergocalciferol (VITAMIN D2,DRISDOL,) 80445 UNIT CapsuleIndications:V itamin D deficiency Take 1 [...] this encounter Progress Notes * Frances Ellis, [facility] - 08/21/2018 4:28 PM EST Patient Phone Numbers [employer] [phone] 4:30 PM - left message for patient to call back and reiterated current doses of Tresiba and Novolog. MTM to follow up tomorrow. Frances Henny Duong, Pharm D, BCACP Clinical Pharmacist [facility] 08/21/2018, 4:30 PM * Shira Wei OSA - 08/21/2018 10:04 AM EST Patient would like a call. States for the past about one week her BG levels have shot up to the 300s and up to 400. She has not been feeling well but otherwise no changes. Wants to discuss with Frances. in this encounter Plan of Treatment Upcoming Encounters Date Type Specialty Care Team Description 08/22/2018 Pharmacy Pharmacy Sp, [facility] [address] [place] [address] [phone] 08/29/2018 Office Visit Gastroenterology Migdalia Jacobs, DO [address] [place] [address] [phone] 10/23/2018 Office Visit Cardiology Marjorie Powell PA-C 132 [facility] [place] [address] [phone] 01/24/2019 Office Visit Nephrology Gia White MD [address] [place], [place] [id number] 03/14/2019 Office Visit Cardiology Rey Woodall MD 132 [facility] [place] [address] [phone] 05/04/2019 Office Visit Sleep Disorders Celsa Tafoya CRNP [address] [facility] [place] [address] [phone] Health Maintenance Due Date Last Done Comments DIABETES-EYE EXAM 02/24/2011 02/24/2010 (Do ne elsewhere), 12/18/2009, 02/18/2008 (Done elsewhere) PAP SMEAR-EVERY 3 YRS,AGES 21-65 05/11/2016 05/11/2013, 03/01/2008, 10/19/2006, Additional history exists DIABETES-HGBA1C EVERY 6 MONTHS 11/01/2018 05/01/2018, 12/29/2017, 07/14/2017, Additional history exists CKD PHOS USE SMARTSET 21027 12/29/2018 12/29/2017, 08/26/2009, 08/25/2009, Additional history exists DIABETES-FOOT EXAM 12/29/2018 12/29/2017, 0 10/21/2016, 12/11/2015, Additional history exists CKD GFR USE SMARTSET 51204 01/29/201908/01, 06/27/2018, 06/12/2018, Additional history exists Yearly B-12 05/16/2019 05/16/2018 CKD HGB USE SMARTSET 65588 06/06/201906/06, 06/05/2018, 12/26/2017, Additional history exists BREAST [...] For more information, please contact: [place] [phone] Latest Code Status on File Code Status [...]
--- OUTSIDE RECORDS SUMMARY | 2023-06-01 05:58 | External Medical Summary | Summary of Care ---
Author Name Unknown Organization [place] [address] Care Team Providers Care Switchboard Operator Receptionist Name Role Phone Migue Whiteside Primary Care Provider Reason for Visit * Reason Comments eRx-Medication Refill Encounter Details Date Type Department Care Team Description 08/06/2018 Refill Family Practice [facility] 132 [facility] [place] [address] Ricardo Mcghee MD 132 [place] [address] Anxiety state Allergies Active Allergy Reactions [...] Pen Syringe Dosing Unit 5 8 Active cyclobenzaprine (FLEXERIL) 10 MG [...] Each 5 8 Active ergocalciferol (VITAMIN D2,DRISDOL,) 70188 UNIT CapsuleIndications: Vitamin D deficiency Take 1 Cap by mouth once a week. 13 Cap 1 8 Active clonazePAM (KLONOPIN) 0.5 MG TabletIndications:A nxiety state TAKE ONE TABLET BY MOUTH TWICE DAILY 60 Tab 0 8 Active clonazePAM (KLONOPIN) 0.5 MG TabletIndications:A nxiety state TAKE ONE TABLET BY MOUTH TWICE DAILY 60 Tab 0 8 08/06/20 18 Discontinued as of this encounter Active [...] Telephone Encounter - Migue Whiteside DO - 08/08/2018 12:48 PM EST Signed Prescriptions: Disp Refills clonazePAM (KLONOPIN) 0.5 MG Tablet 60 Tab 0 Sig: TAKE ONE TABLET BY MOUTH TWICE DAILY Authorizing Provider: MIGUE WHITESIDE * Telephone Encounter - Neelam Zarco LPN - 08/08/2018 7:55 AM EST Pending Prescriptions: Disp Refills clonazePAM (KLONOPIN) 0.5 MG Tablet [Phar*60 Tab 0 Sig: TAKE ONE TABLET BY MOUTH TWICE DAILY * Telephone Encounter - Neelam Zarco LPN - 08/08/2018 7:55 AM EST Pending Prescriptions: Disp Refills clonazePAM (KLONOPIN) 0.5 MG Tablet [Phar*60 Tab 0 Sig: TAKE ONE TABLET BY MOUTH TWICE DAILY Last Office Visit: 08/01/2018 Next Office Visit: No Future Appointments Last date the medication was ordered: 07/18/18 Patient Active Problem List Diagnosis Code Other allergic rhinitis J30.89 ADVANCE DIRECTIVE INFORMATION Primary localized osteoarthrosis, lower leg M17.10 DYSLIPIDEMIA, GOAL LDL BELOW 100 E78.5 Depression with anxiety F41.8 Postsurgical hypothyroidism E89.0 Hypoxemia R09.02 ELISSA (obstructive sleep apnea) G47.33 Venous insufficiency I87.2 HTN, goal below 130/80 I10 History of pulmonary embolus (PE) Z86.711 Statin intolerance Z78.[address] [place] [address] Z95.828 Type 2 diabetes mellitus with hemoglobin A1c goal of 7.0%-8.0% ([facility]) E11.9 Fibromyalgia M79.7 Abnormality of gait R26.9 Restless legs syndrome G25.81 Gastroesophageal reflux disease with esophagitis K21.0 Uncontrolled type 2 diabetes mellitus with stage 3 chronic kidney disease, with long-term current use of insulin ([facility]) E11.22, E11.65, N18.3, Z79.4 Body mass index (BMI) of 50.0 to 59.9 in adult ([facility]) Z68.43 Controlled substance agreement signed Z79.899 Chronic diastolic congestive heart failure ([facility]) I50.32 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[facility]) D75.82 ELSIE (acute kidney injury) ([facility]) N17.9 Vaginal karmen B37.3 Hypervolemia E87.70 Thoracic back pain M54.6 Labs: CREATININE(mg/dL) Nessa Dt/Tm Resulted Value Status 08/01/18 8:29A 08/01/18 1.6* FINAL POTASSIUM(mmol/L) Nessa Dt/Tm Resulted Value Status [...] Encounters Date Type Specialty Care Team Description 08/10/2018 Pharmacy Pharmacy , [facility] [address] [place] [address] [phone] 08/29/2018 Office Visit Gastroenterology Migdalia Jacobs, DO [address] [place] [address] 10/23/2018 Office Visit Cardiology Marjorie Powell PA-C 132 [facility] [place] [address] [phone] 01/24/2019 Office Visit Nephrology Gia White MD 21 [place] [address] [phone] 03/14/2019 Office Visit Cardiology Rey Woodall MD [...] Additional history exists CKD PHOS USE SMARTSET 31355 12/29/2018 12/29/2017, 08/26/2009, 08/25/2009, Additional history exists DIABETES-FOOT EXAM 12/29/2018 12/29/2017, 0 10/21/2016, 12/11/2015, Additional history exists CKD GFR USE SMARTSET 33103 01/29/201908/01, 06/27/2018, 06/12/2018, Additional history exists Yearly B-12 05/16/2019 05/16/2018 CKD HGB USE SMARTSET 45318 06/06/201906/06, 06/05/2018, 12/26/2017, Additional history exists BREAST [...] For more information, please contact: [place] [phone] Latest Code Status on File Code Status [...]
--- OUTSIDE RECORDS SUMMARY | 2023-06-01 05:58 | External Medical Summary | Summary of Care ---
Author Name Unknown Organization [place] [address] Care Team Providers Care Urban Redevelopment Specialist Name Role Phone Kevin Whiteside Primary Care Provider Reason for Visit * Reason Comments Test Results Encounter Details Date Type Department Care Team Description 08/02/2018 Telephone Cardiology, [facility] [address] [facility] [place] [address] Marjorie Powell PA-C [address] [facility] [place] [...] 06/10/2018 Active furosemide (LASIX) 40 MG TabletIndications:Ac [place] diastolic congestive heart failure (HCC) Take 80mg [...] times daily 180 Each 5 08/01/2018 Active as of this encounter Active Problems [...] Telephone Encounter - Marjorie Powell PA-C - 08/02/2018 2:04 PM EST Orders signed for labs. Will verify labs ok prior to script being sent. * Telephone Encounter - Regina Gee LPN - 08/02/2018 1:59 PM EST Patient aware and verbalized understanding, will comply. Agrees to hep panel blood work and script. * Telephone Encounter - Shanna Naik OSA - 08/02/2018 1:57 PM EST Reason for patient's call: Patient calling, returning nurses call Caller was transferred to Regina at the dedicated phone nurse line. * Telephone Encounter - Chrystal Deng LPN - 08/02/2018 1:52 PM EST LMOM for pt to return call to [phone] for information in note. See result information and advise/transfer to triage upon return call. Orders pended for LFT. * Telephone Encounter - Chrystal Deng LPN - 08/02/2018 1:51 PM EST ----- Message from Marjorie Powell PA-C sent at 08/01/2018 2:20 PM EST ----- Triglycerides elevated. Previously intolerant to multiple statins Start fenofibrate/tricor 145 mg daily No recent LFT's on file. Recommend LFT's prior to initiation of therapy if agreeable. in this encounter Plan of Treatment Upcoming Encounters Date Type Specialty Care Team Description 08/29/2018 Office Visit Gastroenterology Migdalia Jacobs, DO [address] [place] [facility] [place] [address] [phone] 10/23/2018 Office Visit Cardiology Marjorie Powell PA-C 132 [facility] [place] [id number] 01/24/2019 Office Visit Nephrology Gia White MD 21 [place] [address] 03/14/2019 Office Visit Cardiology Rey Woodall MD 132 [facility] [place] [id number] 05/04/2019 Office Visit Sleep Disorders Celsa Tafoya CRNP 132 [facility] [place] [id number] Scheduled Tests Name Priority Associated Diagnoses Order S chedule HEP FUNCTION PANEL Routine Dyslipidemia, goal LDL below 100 Expected: 08/02/2018 (Approximate), Expires: 09/01/2019 Health Maintenance Due Date Last Done Comments DIABETES-EYE EXAM 02/24/2011 02/24/2010 (Do ne elsewhere), 12/18/2009, 02/18/2008 (Done elsewhere) PAP SMEAR-EVERY 3 YRS,AGES 21-65 05/11/2016 05/11/2013, 03/01/2008, 10/19/2006, Additional history exists DIABETES-HGBA1C EVERY 6 MONTHS 11/01/2018 05/01/2018, 12/29/2017, 07/14/2017, Additional history exists CKD PHOS USE SMARTSET 58087 12/29/2018 12/29/2017, 08/26/2009, 08/25/2009, Additional history exists DIABETES-FOOT EXAM 12/29/2018 12/29/2017, 0 10/21/2016, 12/11/2015, Additional history exists CKD GFR USE SMARTSET 22245 01/29/201908/01, 06/27/2018, 06/12/2018, Additional history exists Yearly B-12 05/16/2019 05/16/2018 CKD HGB USE SMARTSET 76920 06/06/201906/06, 06/05/2018, 12/26/2017, Additional history exists BREAST [...] fileas of this encounter Visit Diagnoses Diagnosis Dyslipidemia, goal LDL below 100- Primary Other and unspecified hyperlipidemia in this encounter Advance Directives Patient has advance care planning documents, and code status on file. For more information, please contact: [place] [phone] Latest Code Status on File Code Status [...]
--- OUTSIDE RECORDS SUMMARY | 2023-06-01 05:58 | External Medical Summary | Summary of Care ---
Author Name Unknown Organization [place] [address] Care Team Providers Care Director Of Mobile Marketing Name Role Phone Kevin Whiteside Primary Care Provider Reason for Visit * Reason Comments case management Encounter Details Date Type Department Care Team Description 08/16/2018 Telephone Internal Medicine [address] [address] Frances Nicholson, RN [address] [place] [address] case management Allergies Active Allergy Reactions [...] Each 5 08/01/2018 Active ergocalciferol (VITAMIN D2,DRISDOL,) 68078 UNIT CapsuleIndications:V itamin D deficiency Take 1 [...] Telephone Encounter - Frances Nicholson RN - 08/16/2018 2:31 PM EST PMH: DM, HTN, SOA with [...] potassium and Mg Stopped Metformin and HCTZ Spoke with pt She met with Carmen [facility]O [facility] and Carmen was able to get pt's health insurance reinstated. Pt very relieved and thankful Denies chest pain Denies increased edema Denies increased SOB Reports that weight running 343-345 Reports that BS have generally been running less than 200, but have been a little higher last couple days due to "stress" Instructed in s/s of HF exacerbation needing reported ->3 lb weight gain in one day or 5 lbs in a week -increased edema in feet, abdomen or hands -increased SOB and cough, especially if at night -increased fatigue or vertigo Call in 4-6 weeks Frances Nicholson RN Case Manager [phone] in this encounter Plan of Treatment Upcoming Encounters Date Type Specialty Care Team Description 08/23/2018 Pharmacy Pharmacy Sp, [facility] [address] [place] [address] [phone] 08/29/2018 Office Visit Gastroenterology Migdalia Jacobs, DO [address] [place] [address] 10/23/2018 Office Visit Cardiology Marjorie Powell PA-C 132 [facility] [place] [address] [phone] 01/24/2019 Office Visit Nephrology Gia White MD 21 [facility] [address] 03/14/2019 Office Visit Cardiology Rey Woodall MD 132 [facility] [place] [address] 05/04/2019 Office Visit Sleep Disorders Celsa Tafoya CRNP [address] [place] [address] [phone] Health Maintenance Due Date Last Done Comments DIABETES-EYE EXAM 02/24/2011 02/24/2010 (Do ne elsewhere), 12/18/2009, 02/18/2008 (Done elsewhere) PAP SMEAR-EVERY 3 YRS,AGES 21-65 05/11/2016 05/11/2013, 03/01/2008, 10/19/2006, Additional history exists DIABETES-HGBA1C EVERY 6 MONTHS 11/01/2018 05/01/2018, 12/29/2017, 07/14/2017, Additional history exists CKD PHOS USE SMARTSET 30625 12/29/2018 12/29/2017, 08/26/2009, 08/25/2009, Additional history exists DIABETES-FOOT EXAM 12/29/2018 12/29/2017, 0 10/21/2016, 12/11/2015, Additional history exists CKD GFR USE SMARTSET 07115 01/29/201908/01, 06/27/2018, 06/12/2018, Additional history exists Yearly B-12 05/16/2019 05/16/2018 CKD HGB USE SMARTSET 07450 06/06/201906/06, 06/05/2018, 12/26/2017, Additional history exists BREAST [...] For more information, please contact: [place] [phone] Latest Code Status on File Code Status [...]
--- OUTSIDE RECORDS SUMMARY | 2023-06-01 05:59 | External Medical Summary | Summary of Care ---
Author Name Unknown Organization [place] [address] Phone Care Team Providers Care Bike Technician Name Role Phone Kevin Whiteside Primary Care Provider Reason for Visit * Reason Comments case management Encounter Details Date Type Department Care Team Description 07/17/2018 Telephone Internal Medicine [address] [address] Frances Nicholson RN [address] [place] [id number] case management Allergies Active Allergy Reactions Severity Noted Date Comments Empagliflozin Other (Please comment) Medium 05/17/2018 3 yeast infections in 6 weeks after starting Heparin 09/04/2009 Heparin Induced Thrombocytopenia Morphine And Related 09/16/1997 Hallucinations Tetanus Toxoid Other (Please comment) 06/15/2011 Passed out as of this encounter Medications Prescription Sig. Disp. Refills Start Date End Date Status PRILOSEC 20 MG PO CPDR one tablet daily Active oxygen GASIndications:ELISSA (obstructive sleep apnea) 4 LPM bled through CPAP 11 cwp during all periods of sleep. 1 Each 0 04/07/2016 Active docusate sodium (STOOL SOFTENER) 100 MG Capsule Take 100 mg by mouth 2 times a day as needed for Constipation. Active clonazePAM (KLONOPIN) 0.5 MG TabletIndications:An xiety state Take 1 Tab by mouth 2 times a day. 180 Tab 1 07/14/2017 Active levothyroxine (LEVOXYL) 200 MCG TabletIndications:Po stsurgical hypothyroidism Take 1 Tab by mouth daily. (at least 30 min prior to breakfast or other meds) 90 Tab 1 01/26/2018 Active Nortriptyline HCl (PAMELOR) 50 MG CapsuleIndications:F ibromyalgia Take 1 Cap by mouth at bedtime. 90 Cap 1 01/30/2018 Active liraglutide (VICTOZA) 18 MG/3ML SOPNIndications:DM type 2, goal: symptom mgmt (HCC) Inject 1.8 mg under the skin daily. As directed 3 Pre-filled Pen Syringe Dosing Unit 11 02/08/2018 Active ONETOUCH DELICA LANCETS 33G MISC Check blood sugars twice daily as directed 100 Each 5 02/08/2018 Active rOPINIRole (REQUIP) 1 MG TabletIndications:Re stless legs syndrome TAKE ONE TABLET BY MOUTH AT BEDTIME 30 Tab 4 03/09/2018 Active gabapentin (NEURONTIN) 300 MG CapsuleIndications:N europathy,Fibromyalg ia take 1 capsule by mouth twice daily for 2 weeks then switch to 1 three times daily 90 Cap 3 04/11/2018 Active levothyroxine (LEVOXYL) 25 MCG TabletIndications:Po stsurgical hypothyroidism TAKE ONE TABLET BY MOUTH IN THE MORNING AT LEAST 30 MINUTES PRIOR TO BREAKFAST OR OTHER MEDS 90 Tab 1 04/12/2018 Active cyclobenzaprine (FLEXERIL) 10 MG Tablet TAKE ONE TABLET BY MOUTH AT BEDTIME NEEDED FOR MUSCLE SPASM 30 Tab 2 05/01/2018 Active Insulin Pen Needle (BD PEN NEEDLE SHORT U/F) 31G X 8 MM Use 5 times daily with insulin 200 Box Dosing Unit 11 05/16/2018 Active sertraline (ZOLOFT) 100 MG TabletIndications:De pression with anxiety TAKE ONE AND ONE-HALF TABLETS BY MOUTH DAILY 135 Tab 1 06/07/2018 Active MAG64 64 MG TBEC Take 64 mg by mouth 2 times a day. 06/10/2018 Active lisinopril (PRINIVIL) 10 MG TabletIndications:HT N, goal below 140/80,Acute diastolic congestive heart failure (HCC),Body mass index (BMI) of 50.0 to 59.9 in adult (HCC),Hypoxemia,ELISSA (obstructive sleep apnea),HTN, goal below 130/80 Take 0.5 Tabs by mouth daily. 50 Tab 3 06/23/2018 Active metoprolol tartrate (LOPRESSOR) 25 MG TabletIndications:HT N, goal below 130/80,Acute diastolic congestive heart failure (HCC),Body mass index (BMI) of 50.0 to 59.9 in adult ([facility]),Hypoxemia,ELISSA (obstructive sleep apnea),HTN, goal below 140/80 Take 2 Tabs by mouth 2 times a day. 120 Tab 11 06/23/2018 Active Glucose Blood (ONETOUCH ULTRA BLUE) STRP Check sugars four times daily as directed 100 Strip 5 06/27/2018 Active furosemide (LASIX) 40 MG TabletIndications:Ac ulysses diastolic congestive heart failure (HCC) Take 80mg 3 days per week and 40mg all other days 35 Tab 5 07/03/2018 Active Insulin Degludec (TRESIBA FLEXTOUCH) 200 UNIT/ML SOPN Inject up to 160 units daily as directed 10 Box Dosing Unit 5 07/13/2018 Active insulin aspart (NOVOLOG FLEXPEN) 100 UNIT/ML SOPN Inject 18 units breakfast, 10 units with lunch and 18 units with dinner plus sliding scale up to 100 units per day 10 Pre-filled Pen Syringe Dosing Unit 5 07/13/2018 Active Clotrimazole 2 % CREA Administer into the vagina 2 times a day for 7 days. 2 Tube 1 07/13/2018 07/20/2018 Active as of this encounter Active Problems Problem Noted Date Vaginal karmen 07/13/2018 Hypervolemia 07/13/2018 Acute diastolic congestive heart failure (HCC) 06/12/2018 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[facility]) 0 06/12/2018 ELSIE (acute kidney injury) ([facility]) 06/12/20 18 Controlled substance agreement signed Body mass index (BMI) of 50.0 to 59.9 in adult ([facility]) 06/27/2017 Overview: Per Obesity protocol #1 - Per Obesity Taxonomy ICD-10 update of inactive term Uncontrolled type 2 diabetes mellitus with stage 3 chronic kidney disease, with long-term current use of insulin ([facility]) 05/24/2017 Gastroesophageal reflux disease with eso phagitis 03/04/2017 Restless legs syndrome 03/25/2016 Fibromyalgia 02/02/2016 Abnormality of gait 02/02/2016 Type 2 diabetes mellitus with hemoglobin A1c goal of 7.0%-8.0% ([facility]) 10/14/2014 Overview: ICD-10 update of inactive term [...] mass index (BMI) of 40.0-44.9 in adult ([facility] ) 08/17/2010 05/24/2017 Obesity, morbid (more than 1 00 lbs over ideal weight or BMI > 40) ([facility]) 12/23/2009 06/30/2017 Overview: Per Obesity Taxonomy ICD-10 update of inactive term HTN, GOAL BELOW 130/80 10/22/2009 2 Overview: Per HTN Taxonomy. Pneumonia in aspergillosis ([facility]) 09/14/2009 02/15/2017 Venous thrombosis 09/14/2009 10/15/2010 Respiratory failure, acute ([facility]) 09/14/2009 02/15/2017 Spontaneous pneumothorax 09/14/2009 017 Dysuria 08/23/2009 02/15/2017 History of heparin-induced thrombocytopenia 07/2806/12/2018 Type 2 diabetes mellitus wit h hemoglobin A1c goal of less than 7.0% ([facility]) 07/10/2009 10/14/2014 Overview: Modified per Diabetes protocol #14. ICD-10 update of inactive term Dyslipidemia, goal LDL below 160 08/16/2007 09/04/2009 Overview: Per Lipid Taxonomy. HTN, goal below 140/90 04/09/2003 0 Overview: Per HTN Taxonomy. DM type 2, not at goal (HCC) 05/29/2002 Overview: Modified per Diabetes protocol #14. TENOSYNOVITIS FOOT-ANKLE 12/26/2001 017 Goiter 01/13/2000 06/28/2011 BACKACHE NOS 08/26/1999 05/24/2017 OBESITY, UNSPECIFIED 08/26/1999 12/23/2009 Overview: Per Obesity Taxonomy Perforation of intestine (HCC) 0 02/15/2017 Overview: COLON Diverticulitis as of this encounter [...] Assigned at Date Recorded Not on file as of this encounter Miscellaneous Notes * Telephone Encounter - Frances Nicholson RN - 07/17/2018 4:22 PM EDT PMH: DM, HTN, SOA with CPAP, history of PE, frank filter in place, dyslipidemia-statin intol, GERD, Fibromyalgia, depression/anxiety New-acute diastolic HF and ELSIE sent from PCP office abnormal labs and shortness of breath. x-ray concerning for atypical pneumonia 06/06/18-[facility] admit Acute respiratory failure with [...] weight 343 on d/c 06/10/18 d/c from [facility] new on Lasix, potassium and Mg Stopped Metformin and HCTZ ROSA wk 4 Spoke with pt Reports that she has been doing better-breathing is good, weight has stabalized. No lower leg edema. Reports that BS starting to stay more [id number]. Weight 344 Denies chest pain Denies increased SOB-remains SOB with exertion, but improved since increase of Lasix Denies increased edema Denies N/V or decreased intake Denies diff with bowels or bladder Dose have some vaginal itching and was placed on Clotrimazole which has been helpful Denies unmanaged pain-ongoing neuropathy-using Gabapentin Reinforced HF -Weigh self daily in am, post-void and record -Do not add salt to food, avoid foods high in sodium -Limit fluids to 2 liters per day -Report the following: ->3 lb weight gain in one day or 5 lbs in a week -increased edema in feet, abdomen or hands -increased SOB and cough, especially if at night -increased fatigue or vertigo Discussed elevated BS -Avoid concentrated sweets Call if BS >250 x 24 hours Stressed safety/fall precautions Keep follow-up appts with cardiology, PCP and follow-up with [facility] Call in 4-6 weeks Frances Nicholson RN Case Manager [phone] in this encounter Plan of Treatment Upcoming Encounters Date Type Specialty Care Team Description 07/20/2018 Pharmacy Pharmacy [facility] [address] [facility], [place] [address] [phone] 07/21/2018 Office Visit Cardiology Marjorie Powell PA-C [address] [place] [address] [address] [phone] 08/01/2018 Office Visit Family Medicine Kevin Whiteside DO [address] [place] [address] [address] [phone] 08/29/2018 Office Visit [facility]enterology [facility] Jacobs[facility] [address] [facility] [place] [address] 01/24/2019 Office Visit Nephrology Gia White MD [address] [facility] [place] [address] 05/04/2019 Office Visit Sleep Disorders eClsa Tafoya CRNP [address] [facility] [place] [address] [phone] Health Maintenance Due Date Last Done Comments DIABETES-EYE EXAM 02/24/2011 02/24/2010 (Do ne elsewhere), 12/18/2009, 02/18/2008 (Done elsewhere) PAP SMEAR-EVERY 3 YRS,AGES 21-65 05/11/2016 05/11/2013, 03/01/2008, 10/19/2006, Additional history exists DIABETES-HGBA1C EVERY 6 MONTHS 11/01/2018 05/01/2018, 12/29/2017, 07/14/2017, Additional history exists CKD GFR USE SMARTSET 05878 12/26/201806/27, 06/12/2018, 06/05/2018, Additional history exists CKD PHOS USE SMARTSET 69187 12/29/2018 12/29/2017, 08/26/2009, 08/25/2009, Additional history exists DIABETES-FOOT EXAM 12/29/2018 12/29/2017, 0 10/21/2016, 12/11/2015, Additional history exists Yearly B-12 05/16/2019 05/16/2018 CKD HGB USE SMARTSET 25672 06/05/201906/05, 12/26/2017, 05/21/2017, Additional history exists BREAST CANCER SCREENING DISCUSSION [...]
--- OUTSIDE RECORDS SUMMARY | 2023-06-01 05:59 | External Medical Summary ---
Author Name Unknown Address [address] [place] [address] Phone Organization K01:[facility] [address] [facility] [place] [address] Laboratory Report Ordering Provider Test Date Status TRACY LARRY 08/01/2018 08:24:00 Final Observation Date Value Abnormality Reference Status 25-OH Vitamin D total 08/01/2018 13:02 15 Below low n ormal >19 Final Performing Location [facility] [address] [facility] [place] [address]
--- OUTSIDE RECORDS SUMMARY | 2023-06-01 05:59 | External Medical Summary | Summary of Care ---
Author Name Unknown Organization [facility] [place] [address] Phone Care Team Providers Care Palliative Care Coordinator Name Role Phone Kevin Whiteside Primary Care Provider Reason for Visit * Reason Comments NEW PATIENT * Evaluate & Treat - Unlimited Visits (Within 10 days (routine)) Status Reason Specialty Diagnoses / Procedures Referred By Contact Referred To Contact Authorized Specialty Services Required Nephrology Diagnoses ELSIE (acute kidney injury) ([facility]) Sanjiv Tolliver DO [address] [place] [address] Encounter Details Date Type Department Care Team Description 07/13/2018 Office Visit Nephrology, [facility] [address] [place] [address] Gia White MD [address] [place] [address] Kidney disease, chronic, stage III (GFR 30-59 ml/min) ([facility])*;HTN, goal below 140/90;Vaginal karmen;Other hypervolemia Allergies Active Allergy Reactions Severity Noted Date [...] for Constipation. Active clonazePAM (KLONOPIN) 0.5 MG TabletIndications:A nxiety state Take 1 Tab by mouth 2 times a day. 180 Tab 1 07/14/2017 Active levothyroxine (LEVOXYL) 200 MCG TabletIndications:P ostsurgical hypothyroidism Take 1 Tab by mouth daily. (at least 30 min prior to breakfast or other meds) 90 Tab 1 01/26/2018 Active Nortriptyline HCl (PAMELOR) 50 MG CapsuleIndications: [...] 5 02/08/2018 Active rOPINIRole (REQUIP) 1 MG TabletIndications:R estless legs syndrome TAKE ONE TABLET BY MOUTH AT BEDTIME 30 Tab 4 03/09/2018 Active gabapentin (NEURONTIN) 300 MG CapsuleIndications: Neuropathy,Fibromya lgia take 1 capsule by mouth twice daily for 2 weeks then switch to 1 three times daily 90 Cap 3 04/11/2018 Active levothyroxine (LEVOXYL) 25 MCG TabletIndications:P ostsurgical [...] 11 05/16/2018 Active sertraline (ZOLOFT) 100 MG TabletIndications:D epression with anxiety TAKE ONE AND ONE-HALF TABLETS BY MOUTH DAILY 135 Tab 1 06/07/2018 Active MAG64 64 MG TBEC Take 64 mg by mouth 2 times a day. 06/10/2018 Active lisinopril (PRINIVIL) 10 MG TabletIndications:H TN, goal below 140/80,Acute diastolic congestive heart failure (HCC),Body mass index (BMI) of 50.0 to 59.9 in adult (HCC),Hypoxemia,ELISSA (obstructive sleep apnea),HTN, goal below 130/80 Take 0.5 Tabs by mouth daily. 50 Tab 3 06/23/2018 Active metoprolol tartrate (LOPRESSOR) 25 MG TabletIndications:H [...] 5 06/27/2018 Active furosemide (LASIX) 40 MG TabletIndications:A cute diastolic congestive heart failure (HCC) Take 80mg 3 days per week and 40mg all other days 35 Tab 5 07/03/2018 Active Insulin Degludec (TRESIBA FLEXTOUCH) 200 UNIT/ML SOPN Inject up to 160 units daily as directed 10 Box Dosing Unit 5 07/13/2018 Active Clotrimazole 2 % CREA Administer into the vagina 2 times a day for 7 days. 2 Tube 1 07/13/2018 07/20/20 18 Active insulin aspart (NOVOLOG FLEXPEN) 100 UNIT/ML SOPN Inject 15 units breakfast, 10 units with lunch and 18 units with dinner plus sliding scale up to 80 units per day 10 Pre-filled Pen Syringe Dosing Unit 5 06/27/2018 07/13/20 18 Discontinued Insulin Degludec (TRESIBA FLEXTOUCH) 200 UNIT/ML SOPN Inject up to 160 units daily as directed 1 Box Dosing Unit 5 07/03/2018 07/13/20 18 Discontinued as of this encounter Active Problems Problem Noted Date Vaginal karmen 07/13/2018 Hypervolemia 07/13/2018 Acute diastolic congestive heart failure (HCC) 06/12/2018 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HCC) 0 06/12/2018 ELSIE (acute kidney injury) (HCC) 06/12/20 18 Controlled substance agreement signed Body mass index (BMI) of 50.0 to 59.9 in adult ([facility]) 06/27/2017 Overview: Per Obesity protocol #1 - Per Obesity Taxonomy ICD-10 update of inactive term Uncontrolled type 2 diabetes mellitus with stage 3 chronic kidney disease, with long-term current use of insulin ([facility]) 05/24/2017 Gastroesophageal reflux disease with eso phagitis 03/04/2017 Restless legs syndrome 03/25/2016 Fibromyalgia 02/02/2016 Abnormality of gait 02/02/2016 Type 2 diabetes mellitus with hemoglobin A1c goal of 7.0%-8.0% ([facility]) 10/14/2014 Overview: ICD-10 update of inactive term [...] mass index (BMI) of 40.0-44.9 in adult ([facility] ) 08/17/2010 05/24/2017 Obesity, morbid (more than 1 00 lbs over ideal weight or BMI > 40) ([facility]) 12/23/2009 06/30/2017 Overview: Per Obesity Taxonomy ICD-10 update of inactive term HTN, GOAL BELOW 130/80 10/22/2009 2 Overview: Per HTN Taxonomy. Pneumonia in aspergillosis ([facility]) 09/14/2009 02/15/2017 Venous thrombosis 09/14/2009 10/15/2010 Respiratory failure, acute ([facility]) 09/14/2009 02/15/2017 Spontaneous pneumothorax 09/14/2009 017 Dysuria 08/23/2009 02/15/2017 History of heparin-induced thrombocytopenia 07/2806/12/2018 Type 2 diabetes mellitus wit h hemoglobin A1c goal of less than 7.0% ([facility]) 07/10/2009 10/14/2014 Overview: Modified per Diabetes protocol #14. ICD-10 update of inactive term Dyslipidemia, goal LDL below 160 08/16/2007 09/04/2009 Overview: Per Lipid Taxonomy. HTN, goal below 140/90 04/09/2003 0 Overview: Per HTN Taxonomy. DM type 2, not at goal ([facility]) 05/29/2002 Overview: Modified per Diabetes protocol #14. TENOSYNOVITIS FOOT-ANKLE 12/26/2001 017 Goiter 01/13/2000 06/28/2011 BACKACHE NOS 08/26/1999 05/24/2017 OBESITY, UNSPECIFIED 08/26/1999 12/23/2009 Overview: Per Obesity Taxonomy Perforation of intestine ([facility]) 0 02/15/2017 Overview: COLON Diverticulitis as of [...] Not on file as of this encounter Last Filed Vital Signs Vital Sign Reading Time Taken Blood Pressure 126/74 07/13/2018 11:14 AM EDT Pulse 100 07/13/2018 11:14 AM EDT Temperature 36.9 C (98.5 F) 07/13/2018 1 1:14 AM EDT Respiratory Rate 20 07/13/2018 11:1 4 AM EDT Oxygen Saturation - - Inhaled Oxygen Concentration - - Weight 156 kg (344 lb) 07/13/2018 11:14 AM EDT Height - - Body Mass Index 58.66 07/13/2018 11:14 AM EDT in this encounter Progress Notes * Gia White MD - 07/13/2018 11:19 AM EDT Formatting of this note may be different from the original. REASON FOR CONSULT: CKD Requesting physician:Sanjiv Tolliver DO HPI: Stephanie Camp is a 63 year old female seen in initial consultation in the [facility] Nephrology office. She has history of type 2 diabetes for over 20 years recent A1c of 10 on 05/01/2018, no retinopathy but has neuropathy, ELISSA on CPAP, DVT status post IVC filter, fibromyalgia hypertension and obesity. Her creatinine is fluctuated between 1.1 and 1.7 since 2016. Recent creatinine was 1.6 on 06/27/2018. Ultrasound done on 06/06/2018 showed the right kidney of 10.2 cm and left kidney of 10.9 cm. There was mild He cortical atrophy and mild right-sided hydronephrosis. She was recently hospitalized at the [facility] for shortness of breath found have acute kidney injury with a creatinine of 1.1 to 1.3. She was treated for CHF with the diuretics and the Lasixhas been escalated to 80 mg recently. Recent echocardiogram showed EF of 70%. She alternates between advil and motrin 3 pills daily for fibromyalgia. She weighs herself daily, her weight today at home was 346. This appears to be her dry weight. No SOB. She has leg edema. No urinary symptoms except for frequency with lasix. Her BP is well controlled. Her BS is up and down.she recently started tresiba. She is complaining of a general itching and would like urine tested for infection. Review of Systems: General ROS: negative for - chills or fever Psychological ROS: negative for - mood swings ENT ROS: negative for - nasal congestion or nasal discharge Endocrine ROS: negative Cardiovascular ROS: no chest pain or dyspnea on exertion Gastrointestinal ROS: no abdominal pain, change in bowel habits, or black or bloody stools Musculoskeletal ROS: negative for - muscle pain Neurological ROS: no TIA or stroke symptoms Dermatological ROS: negative for rash Past Medical History: Diagnosis Date Allergic rhinitis due to other allergen Backache Diverticulosis of colon 01/28/06 DM type 2, not at goal ([facility]) Goiter Frank filter in place 08/19/2014 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[facility]) 08/22/2009 History of pulmonary embolus (PE) 07/16/2014 HTN, goal below 140/90 Obesity, BMI not known Perforation of intestine ([facility]) 1996 COLON -- 1996 Pneumonia in aspergillosis(484.6) 09/14/2009 Spontaneous pneumothorax 09/14/2009 Statin intolerance 07/16/2014 Type 2 diabetes mellitus with hemoglobin A1c goal of 7.0%-8.0% ([facility]) 10/14/2014 ICD-10 update of inactive term Past Surgical History: Procedure Laterality Date ARTHROPLASTY KNEE TOTAL Right 07/24/14 R COLONOSCOPY, DIAGNOSTIC (RECTUM) 02/18/2016 normal, repeat 10 yrs/[facility] COLONOSCOPY, GI REFERRAL OP 01/28/06 diverticulosis--repeat 10 years INCISION OF [place], PLANNED 06/03/2011 TRACHEOSTOMY PLANNED performed by DANNY HOLDER at [facility] KNEE ARTHROSCOPY/DEBRIDEMENT 07/[address] PERMANENT GASTROSTOMY TUBE 09/06/09 GASTROSTOMY WITH CONSTUCTION GASTRIC TUBE performed by AMADOU NUNEZ at [facility] REMOVAL OF THYROID GLAND 06/15/2011 THYROIDECTOMY INCLUDING SUBSTERNAL THYROID CERVICAL APPROACH performed by DANNY HOLDER at [facility] REMOVE GALLBLADDER 09/06/09 CHOLECYSTECTOMY performed by AMADOU NUNEZ at [facility] REPAIR RECURRENT INCISIONAL HERNIA 1998 REVISION OF [...] Other (Please comment) Passed out Current Outpatient Prescriptions Medication Sig Dispense Refill Clotrimazole 2 % CREA Administer into the vagina 2 times a day for 7 days. 2 Tube 1 Insulin Degludec (TRESIBA FLEXTOUCH) 200 UNIT/ML SOPN Inject up to 160 units daily as directed 10 Box Dosing Unit 5 furosemide (LASIX) 40 MG Tablet Take 80mg 3 days per week and 40mg all other days 35 Tab 5 Glucose Blood (ONETOUCH ULTRA BLUE) STRP Check sugars four times daily as directed 100 Strip 5 lisinopril (PRINIVIL) 10 MG Tablet Take 0.5 Tabs by mouth daily. 50 Tab 3 metoprolol tartrate (LOPRESSOR) 25 MG Tablet Take 2 Tabs by mouth 2 times a day. 120 Tab 11 MAG64 64 MG TBEC Take 64 mg by mouth 2 times a day. sertraline (ZOLOFT) 100 MG Tablet TAKE ONE AND ONE-HALF TABLETS BY MOUTH DAILY 135 Tab 1 Insulin Pen Needle (BD PEN NEEDLE SHORT U/F) 31G X 8 MM Use 5 times daily with insulin 200 Box Dosing Unit 11 cyclobenzaprine (FLEXERIL) 10 MG Tablet TAKE ONE TABLET BY MOUTH AT BEDTIME NEEDED FOR MUSCLE SPASM 30 Tab 2 levothyroxine (LEVOXYL) 25 MCG Tablet TAKE ONE TABLET BY MOUTH IN THE MORNING AT LEAST 30 MINUTES PRIOR TO BREAKFAST OR OTHER MEDS 90 Tab 1 gabapentin (NEURONTIN) 300 MG Capsule take 1 capsule by mouth twice daily for 2 weeks then switch to 1 three times daily 90 Cap 3 rOPINIRole (REQUIP) 1 MG Tablet TAKE ONE TABLET BY MOUTH AT BEDTIME 30 Tab 4 liraglutide (VICTOZA) 18 MG/3ML SOPN Inject 1.8 mg under the skin daily. As directed 3 Pre-filled Pen Syringe Dosing Unit 11 ONETOUCH DELICA LANCETS 33G MISC Check blood sugars twice daily as directed 100 Each 5 Nortriptyline HCl (PAMELOR) 50 MG Capsule Take 1 Cap by mouth at bedtime. 90 Cap 1 levothyroxine (LEVOXYL) 200 MCG Tablet Take 1 Tab by mouth daily. (at least 30 min prior to breakfast or other meds) 90 Tab 1 clonazePAM (KLONOPIN) 0.5 MG Tablet Take 1 Tab by mouth 2 times a day. 180 Tab 1 docusate sodium (STOOL SOFTENER) 100 MG Capsule Take 100 mg by mouth 2 times a day as needed for Constipation. oxygen GAS 4 LPM bled through CPAP 11 cwp during all periods of sleep. 1 Each 0 PRILOSEC 20 MG PO CPDR one tablet daily insulin aspart (NOVOLOG FLEXPEN) 100 UNIT/ML SOPN Inject 18 units breakfast, 10 units with lunch and 18 units with dinner plus sliding scale up to 100 units per day 10 Pre-filled Pen Syringe Dosing Unit 5 Family History Problem Relation Age of Onset Cancer Father lung - age 74 (smoker) Cancer Mother liver - age 45 Heart Disorder Brother age 45 - possible tumor Diabetes Grandmother (Paternal) Cancer Grandfather (Paternal) bone ca - in 70's Older brother had bright's disease. 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 EYES: PERRL, conjunctivae anicteric. ENT: Mucous membranes moist, oropharynx clear. NECK: Supple, no JVD. LYMPH: No cervical or supraclavicular lymphadenopathy. LUNGS: Clear to auscultation bilaterally, no respiratory distress. CARDIAC: Regular rate and rhythm, normal S1/S2, no murmurs, rubs, or gallops. ABDOMEN: Soft, non-tender, non-distended, bowel sounds present. Multiple surgical scars EXT/MSK: No clubbing, cyanosis, or edema. SKIN: No rash, no jaundice. NEURO: Oriented x3, No tremor, no asterixis. LABS/STUDIES: BUN(mg/dL) Nessa Dt/Tm Resulted Value Status 06/27/18 11:12A 06/27/18 47* FINAL 06/12/18 2:14P 06/12/18 35* FINAL 06/05/18 11:49A 06/05/18 16 FINAL 05/16/18 10:51A 05/16/18 32* FINAL 05/01/18 9:A 05/01/18 37* FINAL CREATININE(mg/dL) Nessa Dt/Tm Resulted Value Status 06/27/18 11:12A 06/27/18 1.6* FINAL 06/12/18 2:14P 06/12/18 1.3* FINAL 06/05/18 11:49A 06/05/18 1.1* FINAL 05/16/18 10:51A 05/16/18 1.4* FINAL CREATININE, RD URINE(mg/dL) Nessa Dt/Tm Resulted Value Status 05/01/18 9:13A 05/01/18 67 FINAL E GLOM FILT RATE( ) Nessa Dt/Tm Resulted Value Status 06/27/18 11:12A 06/27/18 35.0* FINAL 06/12/18 2:14P 06/12/18 42.4* FINAL 06/05/18 11:49A 06/05/18 54.0* FINAL 05/16/18 10:51A 05/16/18 39.2* FINAL 05/01/18 9:12A 05/01/18 32.2* FINAL POTASSIUM(mmol/L) Nessa Dt/Tm Resulted Value Status 06/27/18 11:12A 06/27/18 4.3 FINAL 06/12/18 2:14P 06/12/18 4.9 FINAL 06/05/18 11:49A 06/05/18 5.2* FINAL HGB(g/dL) Nessa Dt/Tm Resulted Value Status [...] PTH, INTACT(pg/mL) Nessa Dt/Tm Resulted Value Status 03/03/17 12:38P 03/04/17 19 FINAL PHOSPHORUS(mg/dL) Nessa Dt/Tm Resulted Value Status 12/29/17 12:43P 12/29/17 3.3 FINAL ASSESSMENT/PLAN: Stephanie was seen today for new patient. Diagnoses and all orders for this visit: Kidney disease, chronic, stage III (GFR 30-59 ml/min) ([facility]) Patient with the CKD stage 3 likely due to diabetic nephropathy and chronic NSAID use. Recent creatinine of 1.6 slightly higher than baseline of about 1.1- 1.3. I have asked her to stop taking NSAIDs.She can use Tylenol for pain control. She knows to limit salt and keep well hydrated. She is repeating a BMP in 2 weeks time. I will also check PTH and vitamin-D. She does not have proteinuria on recent urine checked. She has no signs of volume overload or electrolyte imbalance. HTN, goal below 140/90 Her blood pressures were controlled with the current regimen which includes metoprolol, lisinopril and Lasix. Vaginal karmen Patient with the vaginal itching in setting of uncontrolled diabetes. Examination of ext genitalia consistent with the candidiasis. Will start her on clotrimazole cream Volume overload She appears euvolemic now. Continue current dose of Lasix 80 mg 3 times a week and 40 mg the rest of the week. She will continue to monitor her weight. She knows to notify us if she gains over 5 lb in 2 days Return in 6 months Gia White MD in this encounter Nursing Notes * Teri Cullen RN - 07/13/2018 11:14 AM EDT Pt here for new visit Pt has had dm since approx 2001 in this encounter Plan of Treatment Upcoming Encounters Date Type Specialty Care Team Description 07/20/2018 Pharmacy Pharmacy Sp, [facility] [address] [place] [address] [phone] 07/21/2018 Office Visit Cardiology [facility]jorie Powell [facility]-C [address] [facility] [address] [phone] 08/01/2018 Office Visit Family Medicine Kevin Whiteside, [address] [facility] [place] [address] [phone] 08/29/2018 Office Visit Gastroenterology [facility]dalia Jacobs, DO [address] [facility] [address] 01/24/2019 Office Visit Nephrology Gia White MD [address] [facility] [place] [address] 05/04/2019 Office Visit Sleep Disorders [facility]els[facility] Tafoya [facility] [address] [facility] [address] [phone] Pending Results Name Priority Associated Diagnoses Date/Ti me URINE W/ MICROSCOPIC Routine Kidney disease, chronic, stage III (GFR 30-59 ml/min) ([facility]) 07/13/2018 12:22 PM EDT Scheduled Tests Name Priority Associated Diagnoses Order S chedule 25-HYDROXY VITAMIN D Routine Kidney disease, chronic, stage III (GFR 30-59 ml/min) ([facility]) Expected: 07/17/2018 (Approximate), Expires: 10/13/2018 PTH, INTACT Routine Kidney disease, chronic, stage III (GFR 30-59 ml/min) ([facility]) Expected: 07/17/2018 (Approximate), Expires: 10/13/2018 Health Maintenance Due Date Last Done Comments DIABETES-EYE EXAM 02/24/2011 02/24/2010 (Do ne elsewhere), 12/18/2009, 02/18/2008 (Done elsewhere) PAP SMEAR-EVERY 3 YRS,AGES 21-65 05/11/2016 05/11/2013, 03/01/2008, 10/19/2006, Additional history exists DIABETES-HGBA1C EVERY 6 MONTHS 11/01/2018 05/01/2018, 12/29/2017, 07/14/2017, Additional history exists CKD GFR USE SMARTSET 98912 12/26/201806/27, 06/12/2018, 06/05/2018, Additional history exists CKD PHOS USE SMARTSET 30960 12/29/2018 12/29/2017, 08/26/2009, 08/25/2009, Additional history exists DIABETES-FOOT EXAM 12/29/2018 12/29/2017, 0 10/21/2016, 12/11/2015, Additional history exists Yearly B-12 05/16/2019 05/16/2018 CKD HGB USE SMARTSET 73951 06/05/201906/05, 12/26/2017, 05/21/2017, Additional history exists BREAST CANCER SCREENING DISCUSSION YEARLY AGES 40-75 06/23/2019 06/23/2018, 05/09/2015, 07/12/2014, Additional history exists PNEUMOCOCCAL 19-64 MEDIUM RISK Completed 08/22/2009, 06/15/2006 *DEPRESSION SCREENING, ANNUAL FOR PTS 18 AND OVER Addressed 06/12/2018 Overridden wi th the intention of not completing the topic *NEPHROLOGY REFERRAL DUE TO RESISTANT HTN Addressed 06/12/2018 Overridden with the intention of not completing the topic Influenza Vaccine (FLU shot) Completed 06/12/2018, 06/12/2018, 07/14/2017, Additional history exists as of this encounter Implants Not on fileas of this encounter Visit Diagnoses Diagnosis Kidney disease, chronic, sta ge III (GFR 30-59 ml/min) (HCC) - Primary Chronic kidney disease, Stage III (moderate) HTN, goal below 140/90 Unspecified essential hypertension Vaginal karmen Candidiasis of vulva and vagina Other hypervolemia in this encounter
--- OUTSIDE RECORDS SUMMARY | 2023-06-01 05:59 | External Medical Summary ---
Author Name Unknown Address [address] [place] [address] Phone Organization K01:[facility] [address] [place] [id number] Laboratory Report Ordering Provider Test Date Status TRACY LARRY 07/13/2018 12:22:00 Final Observation Date Value Abnormality Reference Status Color of Urine by Auto 07/13/2018 18:01 STRAW Abnormal YEL Final Clarity, Urine 07/13/2018 18:01 CLEAR CLEAR Final Glucose [Mass/volume] in Urine by Automated test strip 07/13/2018 18:01 NEGATIVE NEG Final Bilirubin.total [Presence] in Urine by Automated test strip 07/13/2018 18:01 NEGATIVE NEG Final Ketones [Mass/volume] in Urine by Automated test strip 07/13/2018 18:01 NEGATIVE NEG Final Specific gravity, Urine 07/13/2018 18:01 1.008 1.003-1.030 Final Hemoglobin [Presence] in Urine by Automated test strip 07/13/2018 18:01 NEGATIVE NEG Final pH, Urine 07/13/2018 18:01 5.5 5.0-7.5 Fin al Protein [Mass/volume] in Urine by Automated test strip 07/13/2018 18:01 NEGATIVE NEG Final Urobilinogen [Mass/volume] in Urine by Automated test strip 07/13/2018 18:01 NORMAL NORM Final Nitrite [Presence] in Urine by Automated test strip 07/13/2018 18:01 NEGATIVE NEG Final Leukocyte esterase [Presence] in Urine by Automated test strip 07/13/2018 18:01 SMALL Abnormal NEG Fin al Bacteria [#/area] in Urine sediment by Automated count 07/13/2018 18:01 151-200 Abnormal [id number] Final Leukocytes [#/area] in Urine sediment by Automated count 07/13/2018 18:01 6-9 Abnormal U02 Final Erythrocytes [#/area] in Urine sediment by Automated count 07/13/2018 18:01 0-2 U02 Final Performing Location [facility] [address] [facility] [address]
--- OUTSIDE RECORDS SUMMARY | 2023-06-01 05:59 | External Medical Summary | Summary of Care ---
Author Name Unknown Organization [place] [address] Phone Care Team Providers Care Tribunal Member Name Role Phone Kevin Whiteside DO Primary Care Provider Reason for Visit * Reason Comments ADVICE Encounter Details Date Type Department Care Team Description 07/25/2018 Telephone Family Practice [facility] [address] [facility]ide DO [facility] [address] ADVICE Allergies Active Allergy Reactions Severity Noted Date [...] a day as needed for Constipation. Active liraglutide (VICTOZA) 18 MG/3ML SOPNIndications:DM type 2, goal: symptom mgmt (HCC) Inject 1.8 mg under the skin daily. As directed 3 Pre-filled Pen Syringe Dosing Unit 11 02/08/2018 Active ONETOUCH DELICA LANCETS 33G MISC Check blood sugars twice daily as directed 100 Each 5 02/08/2018 Active rOPINIRole (REQUIP) 1 MG TabletIndications:Res tless legs syndrome TAKE ONE TABLET BY MOUTH AT BEDTIME 30 Tab 4 03/09/2018 Active gabapentin (NEURONTIN) 300 MG CapsuleIndications:Ne uropathy,Fibromyalgia take 1 capsule by mouth twice daily for 2 weeks then switch to 1 three times daily 90 Cap 3 04/11/2018 Active levothyroxine (LEVOXYL) 25 MCG TabletIndications:Pos tsurgical [...] 11 05/16/2018 Active sertraline (ZOLOFT) 100 MG TabletIndications:Dep ression with anxiety TAKE ONE AND ONE-HALF TABLETS BY MOUTH DAILY 135 Tab 1 06/07/2018 Active MAG64 64 MG TBEC Take 64 mg by mouth 2 times a day. 06/10/2018 Active lisinopril (PRINIVIL) 10 MG TabletIndications:HTN , goal below 140/80,Acute diastolic congestive heart failure (HCC),Body mass index (BMI) of 50.0 to 59.9 in adult (HCC),Hypoxemia,ELISSA (obstructive sleep apnea),HTN, goal below 130/80 Take 0.5 Tabs by mouth daily. 50 Tab 3 06/23/2018 Active metoprolol tartrate (LOPRESSOR) 25 MG TabletIndications:HTN , goal below 130/80,Acute diastolic congestive heart failure (HCC),Body mass index (BMI) of 50.0 to 59.9 in adult (HCC),Hypoxemia,ELISSA (obstructive sleep apnea),HTN, goal below 140/80 Take 2 Tabs by mouth 2 times a day. 120 Tab 11 06/23/2018 Active Glucose Blood (TrackRTOUCH ULTRA BLUE) STRP Check sugars four times daily as directed 100 Strip 5 06/27/2018 Active furosemide (LASIX) 40 MG TabletIndications:Acu te diastolic congestive heart failure (HCC) Take 80mg [...] Pen Syringe Dosing Unit 5 07/13/2018 Active Nortriptyline HCl (PAMELOR) 50 MG CapsuleIndications:Fi bromyalgia TAKE ONE CAPSULE BY MOUTH AT BEDTIME 30 Cap 5 07/18/2018 Active levothyroxine (LEVOXYL) 200 MCG TabletIndications:Pos tsurgical hypothyroidism TAKE ONE TABLET BY MOUTH ONE TIME DAILY at least 30 minutes prior to breakfast or other meds 30 Tab 5 07/18/2018 Active clonazePAM (KLONOPIN) 0.5 MG TabletIndications:Anx iety state TAKE ONE TABLET BY MOUTH TWICE DAILY 60 Tab 0 07/18/2018 Active as of this encounter Active Problems Problem Noted Date Thoracic back pain 07/25/2018 Vaginal karmen 07/13/2018 Hypervolemia 07/13/2018 Chronic diastolic congestive heart failu re ([facility]) 06/12/2018 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[facility]) 0 06/12/2018 ELSIE (acute kidney injury) ([facility]) 06/12/20 18 Controlled substance agreement signed Body mass index (BMI) of 50.0 to 59.9 in adult ([facility]) 06/27/2017 Overview: Per Obesity protocol #1 - Per Obesity Taxonomy ICD-10 update of inactive term Uncontrolled type 2 diabetes mellitus with stage 3 chronic kidney disease, with long-term current use of insulin ([facility]) 05/24/2017 Gastroesophageal reflux disease with eso phagitis 03/04/2017 Restless legs syndrome 03/25/2016 Fibromyalgia 02/02/2016 Abnormality of gait 02/02/2016 Type 2 diabetes mellitus with hemoglobin A1c goal of 7.0%-8.0% ([facility]) 10/14/2014 Overview: ICD-10 update of inactive term [...] mass index (BMI) of 40.0-44.9 in adult ([facility] ) 08/17/2010 05/24/2017 Obesity, morbid (more than 1 00 lbs over ideal weight or BMI > 40) ([facility]) 12/23/2009 06/30/2017 Overview: Per Obesity Taxonomy ICD-10 update of inactive term HTN, GOAL BELOW 130/80 10/22/2009 2 Overview: Per HTN Taxonomy. Pneumonia in aspergillosis ([facility]) 09/14/2009 02/15/2017 Venous thrombosis 09/14/2009 10/15/2010 Respiratory failure, acute ([facility]) 09/14/2009 02/15/2017 Spontaneous pneumothorax 09/14/2009 017 Dysuria 08/23/2009 02/15/2017 History of heparin-induced thrombocytopenia 07/2806/12/2018 Type 2 diabetes mellitus wit h hemoglobin A1c goal of less than 7.0% ([facility]) 07/10/2009 10/14/2014 Overview: Modified per Diabetes protocol [...] Telephone Encounter - Migdalia Whiteside OSA - 07/26/2018 9:56 AM EDT Pt aware, would like to use isabel, info faxed * Telephone Encounter - Telma Quinones OSA - 07/25/2018 1:27 PM EDT Keyla from [facility] calling in stating that they received a physical therapy referral from the office but patient has [facility] insurance and they do not participate with them. Patient will need referred elsewhere. Please advise. in this encounter Plan of Treatment Upcoming Encounters Date Type Specialty Care Team Description 08/01/2018 Office Visit Family Medicine Kevin Whiteside DO [address] [place] [address] [phone] 08/03/2018 Pharmacy Pharmacy , [facility] [address] [facility] [place] [address] [phone] 08/29/2018 Office Visit Gastroenterology Migdalia Jacobs, DO [address] [place] [address] 10/23/2018 Office Visit Cardiology Marjorie Powell, PAMyraC 132 [facility] [place] [address] [phone] 01/24/2019 Office Visit Nephrology Gia White MD [address] [place] [address] [phone] 03/14/2019 Office Visit Cardiology Rey Woodall MD 132 [facility] [place] [address] [phone] 05/04/2019 Office Visit Sleep Disorders Celsa Tafoya CRNP [address] [facility] [place] [address] [phone] Health Maintenance Due Date Last Done Comments DIABETES-EYE EXAM 02/24/2011 02/24/2010 (Do ne elsewhere), 12/18/2009, 02/18/2008 (Done elsewhere) PAP SMEAR-EVERY 3 YRS,AGES 21-65 05/11/2016 05/11/2013, 03/01/2008, 10/19/2006, Additional history exists DIABETES-HGBA1C EVERY 6 MONTHS 11/01/2018 05/01/2018, 12/29/2017, 07/14/2017, Additional history exists CKD GFR USE SMARTSET 75209 12/26/201806/27, 06/12/2018, 06/10/2018, Additional history exists CKD PHOS USE SMARTSET 92998 12/29/2018 12/29/2017, 08/26/2009, 08/25/2009, Additional history exists DIABETES-FOOT EXAM 12/29/2018 12/29/2017, 0 10/21/2016, 12/11/2015, Additional history exists Yearly B-12 05/16/2019 05/16/2018 CKD HGB USE SMARTSET 30909 06/06/201906/06, 06/05/2018, 12/26/2017, Additional history exists BREAST [...]
--- OUTSIDE RECORDS SUMMARY | 2023-06-01 05:59 | External Medical Summary | Summary of Care ---
Author Name Unknown Organization [place] [address] Phone Care Team Providers Care Bosom Presser Name Role Phone Kevin Whiteside DO Primary Care Provider Reason for Referral * Evaluate & Treat - Unlimited Visits (Within 10 days (routine)) Status Reason Specialty Diagnoses / Procedures Referred By Contact Referred To Contact Authorized Specialty Services Required Physical Therapy Diagnoses Acute bilateral thoracic back pain Kevin Whiteside DO [address] [place] [address] Reason for Visit * Reason Comments Fall Pt was tripped and f ell on her right elbow and side around 07/01/18, pain between shoulder blades that radiates to right shoulder and up neck Encounter Details Date Type Department Care Team Description 07/25/2018 Office Visit Family Practice [facility] [address] [place] [address] Kevin Whiteside DO 132 [place] [address] Acute bilateral thoracic back pain* Allergies Active Allergy Reactions Severity Noted Date [...] 07/13/2018 Chronic diastolic congestive heart failu re ([facility]) 06/12/2018 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[facility]) 0 06/12/2018 ELSIE (acute kidney injury) ([facility]) 06/12/20 18 Controlled substance agreement signed Body mass index (BMI) of 50.0 to 59.9 in adult ([facility]) 06/27/2017 Overview: Per Obesity protocol #1 - Per Obesity Taxonomy ICD-10 update of inactive term Uncontrolled type 2 diabetes mellitus with stage 3 chronic kidney disease, with long-term current use of insulin ([facility]) 05/24/2017 Gastroesophageal reflux disease with eso phagitis 03/04/2017 Restless legs syndrome 03/25/2016 Fibromyalgia 02/02/2016 Abnormality of gait 02/02/2016 Type 2 diabetes mellitus with hemoglobin A1c goal of 7.0%-8.0% ([facility]) 10/14/2014 Overview: ICD-10 update of inactive term Downing filter in place 08/19/2014 History of pulmonary [...] mass index (BMI) of 40.0-44.9 in adult ([facility] ) 08/17/2010 05/24/2017 Obesity, morbid (more than 1 00 lbs over ideal weight or BMI > 40) ([facility]) 12/23/2009 06/30/2017 Overview: Per Obesity Taxonomy ICD-10 update of inactive term HTN, GOAL BELOW 130/80 10/22/2009 2 Overview: Per HTN Taxonomy. Pneumonia in aspergillosis ([facility]) 09/14/2009 02/15/2017 Venous thrombosis 09/14/2009 10/15/2010 Respiratory failure, acute ([facility]) 09/14/2009 02/15/2017 Spontaneous pneumothorax 09/14/2009 017 Dysuria 08/23/2009 02/15/2017 History of heparin-induced thrombocytopenia 07/2806/12/2018 Type 2 diabetes mellitus wit h hemoglobin A1c goal of less than 7.0% ([facility]) 07/10/2009 10/14/2014 Overview: Modified per Diabetes protocol #14. ICD-10 update of inactive term Dyslipidemia, goal LDL below 160 08/16/2007 09/04/2009 Overview: Per Lipid Taxonomy. HTN, goal below 140/90 04/09/2003 0 Overview: Per HTN Taxonomy. DM type 2, not at goal ([facility]) 05/29/2002 Overview: Modified per Diabetes protocol #14. TENOSYNOVITIS FOOT-ANKLE 12/26/2001 017 Goiter 01/13/2000 06/28/2011 BACKACHE NOS 08/26/1999 05/24/2017 OBESITY, UNSPECIFIED 08/26/1999 12/23/2009 Overview: Per Obesity Taxonomy Perforation of intestine ([facility]) 0 02/15/2017 Overview: COLON Diverticulitis as of [...] Vital Sign Reading Time Taken Blood Pressure 134/70 07/25/2018 12:44 PM EDT Pulse 90 07/25/2018 12:44 PM EDT Temperature 36.4 C (97.5 F) 07/25/2018 1 2:44 PM EDT Respiratory Rate 24 07/25/2018 12:4 4 PM EDT Oxygen Saturation 95% 07/25/2018 12: 44 PM EDT Inhaled Oxygen Concentration - - Weight 153.3 kg (338 lb) 07/25/2018 12: 44 PM EDT Height - - Body Mass Index 57.63 07/25/2018 12:44 PM EDT in this encounter Progress Notes * Kevin Whitesidemelinda, DO - 07/25/2018 12:53 PM EDT Formatting of this note may be different from the original. Nursing Notes: Izabela Crump LPN 07/25/18 1247 Signed The patient has been properly identified by confirmation of name and date of . Chief Complaint Patient presents with Fall Pt was tripped and fell on her right elbow and side around 07/01/18, pain between shoulder blades that radiates to right shoulder and up neck ASSESSMENT/PLAN: 1. Acute bilateral thoracic back pain Thoracic musculoskeletal pain as a result of a strain from a fall. No concern for further bony derangement however she has resulting dysfunction of the musculature of the thoracic spine and would benefit from physical therapy. Consult placed for [facility] for home therapy. - PHYSICAL THERAPY REFERRAL OP HPI: Stephanie Camp is a 63 year old female who presents to the clinic for evaluation of mid backdiscomfort a couple of weeks after a fall that she had. Has been having muscle spasms. ROS: CONSTITUTIONAL: no weight loss, no fevers, [...] numbness PSYCH: no SI/HI PHYSICAL EXAMINATION: BP 134/70 | Pulse 90 | Temp (Src) 97.5 (Tympanic) | Resp 24 | Wt 338 lbs (153.316kg) | BMI 57.63 kg/m | BSA 2.64 m | SaO2 95[room air[% | LMP 03/11/2003 GENERAL: alert, healthy, [...] gait normal, reflexes normal and symmetric MSK: Mid thoracic paraspinal hypertonicity and rhomboid spasms with associated levator scapula there is hypertonicity and tender points. Patient Active Problem List Diagnosis Code Other allergic rhinitis J30.89 ADVANCE DIRECTIVE INFORMATION Primary localized osteoarthrosis, lower leg M17.10 DYSLIPIDEMIA, GOAL LDL BELOW 100 E78.5 Depression with anxiety F41.8 Postsurgical hypothyroidism E89.0 Hypoxemia R09.02 ELISSA (obstructive sleep apnea) G47.33 Venous insufficiency I87.2 HTN, goal below 130/80 I10 History of pulmonary embolus (PE) Z86.711 Statin intolerance Z78.[address] Z95.828 Type 2 diabetes mellitus with hemoglobin A1c goal of 7.0%-8.0% ([facility]) E11.9 Fibromyalgia M79.7 Abnormality of gait R26.9 Restless legs syndrome G25.81 Gastroesophageal reflux disease with esophagitis K21.0 Uncontrolled type 2 diabetes mellitus with stage 3 chronic kidney disease, with long-term current use of insulin ([facility]) E11.22, E11.65, N18.3, Z79.4 Body mass index (BMI) of 50.0 to 59.9 in adult ([facility]) Z68.43 Controlled substance agreement signed Z79.899 Chronic diastolic congestive heart failure ([facility]) I50.32 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[facility]) D75.82 ELSIE (acute kidney injury) ([facility]) N17.9 Vaginal karmen B37.3 Hypervolemia E87.70 Thoracic back pain M54.6 Past Medical History: Diagnosis Date Allergic rhinitis due to other allergen Backache Diverticulosis of colon 01/28/06 DM type 2, not at goal ([facility]) Goiter Downing filter in place 08/19/2014 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[facility]) 08/22/2009 History of pulmonary embolus (PE) 07/16/2014 HTN, goal below 140/90 Obesity, BMI not known Perforation of intestine ([facility]) 1996 COLON -- 1996 Pneumonia in aspergillosis(484.6) 09/14/2009 Spontaneous pneumothorax 09/14/2009 Statin intolerance 07/16/2014 Type 2 diabetes mellitus with hemoglobin A1c goal of 7.0%-8.0% ([facility]) 10/14/2014 ICD-10 update of inactive term Past Surgical History: Procedure Laterality Date ARTHROPLASTY KNEE TOTAL Right 07/24/14 R COLONOSCOPY, DIAGNOSTIC (RECTUM) 02/18/2016 normal, repeat 10 yrs/[facility] COLONOSCOPY, GI REFERRAL OP 01/28/06 diverticulosis--repeat 10 years INCISION OF WINDPIPE, PLANNED 06/03/2011 TRACHEOSTOMY PLANNED performed by DANNY HOLDER at OR [facility] KNEE ARTHROSCOPY/DEBRIDEMENT 07/[address] PERMANENT GASTROSTOMY TUBE 09/06/09 GASTROSTOMY WITH CONSTUCTION GASTRIC TUBE performed by AMADOU NUNEZ at OR [facility] REMOVAL OF THYROID GLAND 06/15/2011 [...] by Dr. Lerma at [facility] Current Outpatient Prescriptions Medication Sig Dispense Refill clonazePAM (KLONOPIN) 0.5 MG Tablet TAKE ONE TABLET BY MOUTH TWICE DAILY 60 Tab 0 levothyroxine (LEVOXYL) 200 MCG Tablet TAKE ONE TABLET BY MOUTH ONE TIME DAILY at least 30 minutes prior to breakfast or other meds 30 Tab 5 Nortriptyline HCl (PAMELOR) 50 MG Capsule TAKE ONE CAPSULE BY MOUTH AT BEDTIME 30 Cap 5 insulin aspart (NOVOLOG FLEXPEN) 100 UNIT/ML SOPN Inject 18 units breakfast, 10 units with lunch and 18 units with dinner plus sliding scale up to 100 units per day 10 Pre-filled Pen Syringe Dosing Unit 5 Insulin Degludec (TRESIBA FLEXTOUCH) 200 UNIT/ML [...] twice daily as directed 100 Each 5 docusate sodium (STOOL SOFTENER) 100 [...] Whiteside DO [facility] [address] [facility] [place] [address] (This note was completed using the dictation program Fluency Direct. As such, there may be misspellings, word substitutions, or other variations that should not change the essence of the clinical content of this encounter note.If there is need for further clarification, please direct questions to the provider listed above.) in this encounter Nursing Notes * Izabela Crump LPN - 07/25/2018 12:44 PM EDT Formatting of this note may be different from the original. The patient has been properly identified by confirmation of name and date of . Chief Complaint Patient presents with Fall Pt was tripped and fell on her right elbow and side around 07/01/18, pain between shoulder blades that radiates to right shoulder and up neck in this encounter Plan of Treatment Upcoming Encounters Date Type Specialty Care Team Description 08/01/2018 Office Visit Family Medicine Kevin Whiteside DO [address] [place] [address] [phone] 08/03/2018 Pharmacy Pharmacy , [facility] [address] [place] [address] [phone] 08/29/2018 Office Visit Gastroenterology Migdalia Jacobs DO [address] [place] [address] 10/23/2018 Office Visit Cardiology Marjorie Powell PA-C [address] [place] [address] [phone] 01/24/2019 Office Visit Nephrology Gia White MD [address] [facility] [place] [address] 03/14/2019 Office Visit Cardiology Rey Woodall MD [address] [place] [address] [phone] 05/04/2019 Office Visit Sleep Disorders Celsa Tafoya CRNP [address] [facility] [place] [address] [phone] Scheduled Referrals Name Priority Associated Diagnoses Order S chedule PHYSICAL THERAPY REFERRAL OP Within 10 days (routine) Acute bilateral thoracic back pain Ordered: 07/25/2018 Health Maintenance Due Date Last Done Comments DIABETES-EYE EXAM 02/24/2011 02/24/2010 (Do ne elsewhere), 12/18/2009, 02/18/2008 (Done elsewhere) PAP SMEAR-EVERY 3 YRS,AGES 21-65 05/11/2016 05/11/2013, 03/01/2008, 10/19/2006, Additional history exists DIABETES-HGBA1C EVERY 6 MONTHS 11/01/2018 05/01/2018, 12/29/2017, 07/14/2017, Additional history exists CKD GFR USE SMARTSET 90908 12/26/201806/27, 06/12/2018, 06/05/2018, Additional history exists CKD PHOS USE SMARTSET 19225 12/29/2018 12/29/2017, 08/26/2009, 08/25/2009, Additional history exists DIABETES-FOOT EXAM 12/29/2018 12/29/2017, 0 10/21/2016, 12/11/2015, Additional history exists Yearly B-12 05/16/2019 05/16/2018 CKD HGB USE SMARTSET 26928 06/05/201906/05, 12/26/2017, 05/21/2017, Additional history exists BREAST [...] of this encounter Visit Diagnoses Diagnosis Acute bilateral thoracic kellie k pain - Primary in this encounter"
--- OUTSIDE RECORDS SUMMARY | 2023-06-01 05:59 | External Medical Summary ---
Author Name Unknown Address Unknown Organization [id number]:Performed at [place] [address] [facility] [place] [address] Laboratory Report Ordering Provider Test Date Status ARI CALDERON 08/01/2018 08:29:00 Final Observation Date Value Abnormality Reference Status Fasting status Patient Ql Reported 08/01/2018 08:31 >8 HOURS Final Triglyceride 08/01/2018 12:24 283 Above high normal <2 00 Final Performing Location Performed at [facility] [place] [address] [address] [place] [address]
--- OUTSIDE RECORDS SUMMARY | 2023-06-01 05:59 | External Medical Summary ---
Author Name Unknown Address [address] [place] [address] Phone Organization [email or web address]:[facility] [address] [facility] [place] [address] Laboratory Report Ordering Provider Test Date Status ARI CALDERON 08/01/2018 08:29:00 Final Observation Date Value Abnormality Reference Status BUN 08/01/2018 09:29 46 Above high normal 6-20 Final Creatinine 08/01/2018 09:29 1.6 Above high normal 0.5- 1.0 Final Performing Location [facility] [employer] [address] [place] [address]
--- OUTSIDE RECORDS SUMMARY | 2023-06-01 05:59 | External Medical Summary | Summary of Care ---
Author Name Unknown Organization [place] [address] Care Team Providers Care Professor Of Nursing Name Role Phone [place] Whiteside DO Primary Care Provider Reason for Visit * Reason Comments Follow Up 3 month follow up-go ing to PT for neck and back pain Encounter Details Date Type Department Care Team Description 08/01/2018 Office Visit [facility] [address] [facility] [address] [place] [facility] DO [address] [facility] [address] [phone] Type 2 diabetes mellitus with hemoglobin A1c goal of 7.0%-8.0% ([facility])*; Uncontrolled type 2 diabetes mellitus with stage 3 chronic kidney disease, with long-term current use of insulin ([facility]); Body mass index (BMI) of 50.0 to 59.9 in adult ([facility]); Neuropathy; Fibromyalgia; POSTSURGICAL HYPOTHYROID; DM type 2, goal: symptom mgmt ([facility]); HTN, goal below 140/80; Acute diastolic congestive heart failure ([facility]); Hypoxemia; ELISSA (obstructive sleep apnea); HTN, goal below 130/80; Restless legs syndrome; Depression with anxiety Allergies Active Allergy Reactions Severity Noted Date [...] times daily 270 Cap 3 8 Active Glucose Blood (ONETOUCH ULTRA BLUE) STRP Check sugars four times daily as directed 360 Strip 5 8 Active Insulin Degludec (TRESIBA FLEXTOUCH) 200 [...] mouth daily. 90 Tab 3 8 Active metoprolol tartrate (LOPRESSOR) 25 MG TabletIndications:H TN, goal below 130/80,Acute diastolic congestive heart failure (HCC),Body mass index (BMI) of 50.0 to 59.9 in adult (HCC),Hypoxemia,ELISSA (obstructive sleep apnea),HTN, goal below 140/80 Take 2 Tabs by mouth 2 times a day. 180 Tab 11 8 Active Nortriptyline HCl (PAMELOR) 50 MG CapsuleIndications: Fibromyalgia Take 1 Cap by mouth at bedtime. 90 Cap 5 8 Active ONETOUCH DELICA LANCETS 33G MISC Check blood sugars twice daily as directed 180 Each 5 8 Active rOPINIRole (REQUIP) 1 MG TabletIndications:R estless legs syndrome Take 1 Tab by mouth at bedtime. 90 Tab 4 8 Active sertraline (ZOLOFT) 100 MG TabletIndications:D epression with anxiety TAKE ONE AND ONE-HALF TABLETS BY MOUTH DAILY 135 Tab 1 8 Active liraglutide (VICTOZA) 18 MG/3ML SOPNIndications:DM type 2, goal: symptom mgmt (HCC) Inject 1.8 mg under the skin daily. As directed 3 Pre-filled Pen Syringe Dosing Unit 11 8 08/01/20 18 Discontinued ONETOUCH DELICA LANCETS 33G MISC Check blood sugars twice daily as directed 100 Each 5 8 08/01/20 18 Discontinued rOPINIRole (REQUIP) 1 MG TabletIndications:R estless legs syndrome TAKE ONE TABLET BY MOUTH AT BEDTIME 30 Tab 4 8 08/01/20 18 Discontinued gabapentin (NEURONTIN) 300 MG CapsuleIndications: Neuropathy,Fibromya lgia take 1 capsule by mouth twice daily for 2 weeks then switch to 1 three times daily 90 Cap 3 8 08/01/20 18 Discontinued levothyroxine (LEVOXYL) 25 MCG TabletIndications:P ostsurgical hypothyroidism TAKE ONE TABLET BY MOUTH IN THE MORNING AT LEAST 30 MINUTES PRIOR TO BREAKFAST OR OTHER MEDS 90 Tab 1 8 08/01/20 18 Discontinued cyclobenzaprine (FLEXERIL) 10 MG Tablet TAKE ONE TABLET BY MOUTH AT BEDTIME NEEDED FOR MUSCLE SPASM 30 Tab 2 8 08/01/20 18 Discontinued Insulin Pen Needle (BD PEN NEEDLE SHORT U/F) 31G X 8 MM Use 5 times daily with insulin 200 Box Dosing Unit 11 8 08/01/20 18 Discontinued sertraline (ZOLOFT) 100 MG TabletIndications:D epression with anxiety TAKE ONE AND ONE-HALF TABLETS BY MOUTH DAILY 135 Tab 1 8 08/01/20 18 Discontinued lisinopril (PRINIVIL) 10 MG TabletIndications:H TN, goal below 140/80,Acute diastolic congestive heart failure (HCC),Body mass index (BMI) of 50.0 to 59.9 in adult (HCC),Hypoxemia,ELISSA (obstructive sleep apnea),HTN, goal below 130/80 Take 0.5 Tabs by mouth daily. 50 Tab 3 8 08/01/20 18 Discontinued metoprolol tartrate (LOPRESSOR) 25 MG TabletIndications:H TN, goal below 130/80,Acute diastolic congestive heart failure (HCC),Body mass index (BMI) of 50.0 to 59.9 in adult (HCC),Hypoxemia,ELISSA (obstructive sleep apnea),HTN, goal below 140/80 Take 2 Tabs by mouth 2 times a day. 120 Tab 11 8 08/01/20 18 Discontinued Glucose Blood (ONETOUCH ULTRA BLUE) STRP Check sugars four times daily as directed 100 Strip 5 8 08/01/20 18 Discontinued Insulin Degludec (TRESIBA FLEXTOUCH) 200 UNIT/ML SOPN Inject up to 160 units daily as directed 10 Box Dosing Unit 5 8 08/01/20 18 Discontinued Nortriptyline HCl (PAMELOR) 50 MG CapsuleIndications: Fibromyalgia TAKE ONE CAPSULE BY MOUTH AT BEDTIME 30 Cap 5 8 08/01/20 18 Discontinued levothyroxine (LEVOXYL) 200 MCG TabletIndications:P ostsurgical hypothyroidism TAKE ONE TABLET BY MOUTH ONE TIME DAILY at least 30 minutes prior to breakfast or other meds 30 Tab 5 8 08/01/20 18 Discontinued as of [...] Vital Sign Reading Time Taken Blood Pressure 132/72 08/01/2018 7:32 AM EST Pulse 88 08/01/2018 7:32 AM EST Temperature - - Respiratory Rate 16 08/01/2018 7:32 AM EST Oxygen Saturation - - Inhaled Oxygen Concentration - - Weight 153.8 kg (339 lb) 08/01/2018 7:3 2 AM EST Height 163.1 cm (5' 4.21") 08/01/2018 7 :32 AM EST Body Mass Index 57.81 08/01/2018 7:32 AM EST in this encounter Progress Notes * [place] Whiteside DO - 08/01/2018 7:45 AM EST Nursing Notes: Mattie Hilario LPN 08/01/18 0734 Signed The patient has been properly identified by confirmation of name and date of . Chief Complaint Patient presents with Follow Up 3 month follow up-going to PT for neck and back pain ASSESSMENT/PLAN: 1. Type 2 diabetes mellitus with hemoglobin A1c goal of 7.0%-8.0% ([facility]) Patient with 2. Uncontrolled type 2 diabetes mellitus with stage 3 chronic kidney disease, with long-term current use of insulin (HCC) Stable CKD, continue good hydration 3. Body mass index (BMI) of 50.0 to 59.9 in adult ([facility]) Educated on diet and weight loss goals - lisinopril (PRINIVIL) 10 MG Tablet; Take 0.5 Tabs by mouth daily. Dispense: 90 Tab; Refill: 3 - metoprolol tartrate (LOPRESSOR) 25 MG Tablet; Take 2 Tabs by mouth 2 times a day. Dispense: 180 Tab; Refill: 11 4. Neuropathy - gabapentin (NEURONTIN) 300 MG Capsule; Take one capsule by mouth three times daily Dispense: 270 Cap; Refill: 3 5. Fibromyalgia Still in pain, but meds helping - gabapentin (NEURONTIN) 300 MG Capsule; Take one capsule by mouth three times daily Dispense: 270 Cap; Refill: 3 - Nortriptyline HCl (PAMELOR) 50 MG Capsule; Take 1 Cap by mouth at bedtime. Dispense: 90 Cap; Refill: 5 6. POSTSURGICAL HYPOTHYROID Stable, on 225mcgrams - levothyroxine (LEVOXYL) 200 MCG Tablet; TAKE ONE TABLET BY MOUTH ONE TIME DAILY at least 30 minutes prior to breakfast or other meds Dispense: 90 Tab; Refill: 5 - levothyroxine (LEVOXYL) 25 MCG Tablet; TAKE ONE TABLET BY MOUTH IN THE MORNING AT LEAST 30 MINUTES PRIOR TO BREAKFAST OR OTHER MEDS Dispense: 90 Tab; Refill: 1 7. DM type 2, goal: symptom mgmt ([facility]) - liraglutide (VICTOZA) 18 MG/3ML SOPN; Inject 1.8 mg under the skin daily. As directed Dispense: 9Pre-filled Pen Syringe Dosing Unit; Refill: 11 8. HTN, goal below 140/80 Good BP today in clinic - lisinopril (PRINIVIL) 10 MG Tablet; Take 0.5 Tabs by mouth daily. Dispense: 90 Tab; Refill: 3 - metoprolol tartrate (LOPRESSOR) 25 MG Tablet; Take 2 Tabs by mouth 2 times a day. Dispense: 180 Tab; Refill: 11 9. Acute diastolic congestive heart failure (HCC) Stable on current meds - lisinopril (PRINIVIL) 10 MG Tablet; Take 0.5 Tabs by mouth daily. Dispense: 90 Tab; Refill: 3 - metoprolol tartrate (LOPRESSOR) 25 MG Tablet; Take 2 Tabs by mouth 2 times a day. Dispense: 180 Tab; Refill: 11 10. Hypoxemia On Cpap with 02, doing well - lisinopril (PRINIVIL) 10 MG Tablet; Take 0.5 Tabs by mouth daily. Dispense: 90 Tab; Refill: 3 - metoprolol tartrate (LOPRESSOR) 25 MG Tablet; Take 2 Tabs by mouth 2 times a day. Dispense: 180 Tab; Refill: 11 11. ELISSA (obstructive sleep apnea) On cpap with O2 - lisinopril (PRINIVIL) 10 MG Tablet; Take 0.5 Tabs by mouth daily. Dispense: 90 Tab; Refill: 3 - metoprolol tartrate (LOPRESSOR) 25 MG Tablet; Take 2 Tabs by mouth 2 times a day. Dispense: 180 Tab; Refill: 11 12. HTN, goal below 130/80 - lisinopril (PRINIVIL) 10 MG Tablet; Take 0.5 Tabs by mouth daily. Dispense: 90 Tab; Refill: 3 - metoprolol tartrate (LOPRESSOR) 25 MG Tablet; Take 2 Tabs by mouth 2 times a day. Dispense: 180 Tab; Refill: 11 13. Restless legs syndrome stable - rOPINIRole (REQUIP) 1 MG Tablet; Take 1 Tab by mouth at bedtime. Dispense: 90 Tab; Refill: 4 14. Depression with anxiety stable - sertraline (ZOLOFT) 100 MG Tablet; TAKE ONE AND ONE-HALF TABLETS BY MOUTH DAILY Dispense: 135 Tab; Refill: 1 HPI: Stephanie Camp is a 63 year old female who presents to The clinic due to upcoming loss of insurance. Would like 3 month refills to give her time to establish other means of insurance or care elsewhere. ROS: CONSTITUTIONAL: no weight loss, no fevers, [...] numbness PSYCH: no SI/HI PHYSICAL EXAMINATION: BP 132/72 | Pulse 88 | Resp 16 | Ht 5' 4.21" (1.631m) | Wt 339 lbs (153.769kg) | BMI 57.81 kg/m |BSA 2.64 m | LMP 03/11/2003 GENERAL: alert, healthy, [...] EXTREMITIES: no joint deformities, effusion, or inflammation, + bilateral LE edema, no clubbing, nocyanosis, Full ROM, Pulses Intact, Strength equal bilaterally Patient Active Problem List Diagnosis Code Other [...] heart failure ([facility]) I50.32 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[facility]) D75.82 ELSIE (acute kidney injury) ([facility]) N17.9 Vaginal karmen B37.3 Hypervolemia E87.70 Thoracic back pain M54.6 Past Medical History: Diagnosis Date Allergic rhinitis due to other allergen Backache Diverticulosis of colon 01/28/06 DM type 2, not at goal ([facility]) Goiter Frank filter in place 08/19/2014 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[facility]) 08/22/2009 History of pulmonary embolus (PE) 07/16/2014 HTN, goal below 140/90 Obesity, BMI not known Perforation of intestine ([facility]) 1996 COLON -- 1996 Pneumonia in aspergillosis(484.6) 09/14/2009 Spontaneous pneumothorax 09/14/2009 Statin intolerance 07/16/2014 Type 2 diabetes mellitus with hemoglobin A1c goal of 7.0%-8.0% ([facility]) 10/14/2014 ICD-10 update of inactive term Past Surgical History: Procedure Laterality Date ARTHROPLASTY KNEE TOTAL Right 07/24/14 R COLONOSCOPY, DIAGNOSTIC (RECTUM) 02/18/2016 normal, repeat 10 yrs/[facility] COLONOSCOPY, GI REFERRAL OP 01/28/06 diverticulosis--repeat 10 years KNEE ARTHROSCOPY/DEBRIDEMENT 07/30 L knee cartilage REPAIR RECURRENT INCISIONAL HERNIA 1998 REVISION OF COLOSTOMY, SIMPLE 1998 SUTURE, LARGE INTESTINE W/COLOSTOMY 1996 perforation R colon with colostomy VENA CAVA FILTER/LIGATION/CLIP 08/19/09 [place] filter placement through the right femoral 08/19/[address] Lerma at [facility] Current Outpatient Medications Medication Sig Dispense Refill cyclobenzaprine (FLEXERIL) 10 MG Tablet TAKE ONE TABLET BY MOUTH AT BEDTIME NEEDED FOR MUSCLE SPASM 90 Tab 2 gabapentin (NEURONTIN) 300 MG Capsule Take one capsule by mouth three times daily 270 Cap 3 Glucose Blood (ONETOUCH ULTRA BLUE) STRP Check sugars four times daily as directed 360 Strip 5 Insulin Degludec (TRESIBA FLEXTOUCH) [...] mouth 2 times a day. 180 Tab 11 Nortriptyline HCl (PAMELOR) 50 MG Capsule Take 1 Cap by mouth at bedtime. 90 Cap 5 ONETOUCH DELICA LANCETS 33G MISC Check blood sugars twice daily as directed 180 Each 5 rOPINIRole (REQUIP) 1 MG Tablet Take 1 Tab by mouth at bedtime. 90 Tab 4 sertraline (ZOLOFT) 100 MG Tablet TAKE ONE AND ONE-HALF TABLETS BY MOUTH DAILY 135 Tab 1 clonazePAM (KLONOPIN) 0.5 MG Tablet TAKE ONE TABLET BY MOUTH TWICE DAILY 60 Tab 0 insulin aspart (NOVOLOG FLEXPEN) 100 UNIT/ML SOPN Inject 18 units breakfast, 10 units with lunch and 18 units with dinner plus sliding scale up to 100 units per day 10 Pre-filled Pen Syringe Dosing Unit 5 furosemide (LASIX) 40 MG [...] (Please comment) Passed out [place] Whiteside DO [facility] [address] [facility] [place] [address] (This note was completed using the dictation program Fluency Direct. As such, there may be misspellings, word substitutions, or other variations that should not change the essence of the clinical content of this encounter note.If there is need for further clarification, please direct questions to the provider listed above.) in this encounter Nursing Notes * Mattie Hilario LPN - 08/01/2018 7:31 AM EST The patient has been properly identified by confirmation of name and date of . Chief Complaint Patient presents with Follow Up 3 month follow up-going to PT for neck and back pain in this encounter Plan of Treatment Upcoming Encounters Date Type Specialty Care Team Description 08/01/2018 Laboratory Laboratory [facility] [address] [place] [address] [phone] HTN, goal below 130/80; Acute diastolic congestive heart failure (HCC) 08/03/2018 Pharmacy Pharmacy Sp, [facility] [address] [place] [address] [phone] 08/29/2018 Office Visit Gastroenterology Migdalia Jacobs, DO [address] [place] [address] 10/23/2018 Office Visit Cardiology Marjorie Powell PA-C [address] [facility] [place] [address] [phone] 01/24/2019 Office Visit Nephrology Gia White MD [address] [facility] [place] [address] [phone] 03/14/2019 Office Visit Cardiology Rey Woodall MD [address] [place] [address] [phone] 05/04/2019 Office Visit Sleep Disorders Celsa Tafoya CRNP [address] [facility] [place] [address] [phone] Health Maintenance Due Date Last Done Comments DIABETES-EYE EXAM 02/24/2011 02/24/2010 (Do ne elsewhere), 12/18/2009, 02/18/2008 (Done elsewhere) PAP SMEAR-EVERY 3 YRS,AGES 21-65 05/11/2016 05/11/2013, 03/01/2008, 10/19/2006, Additional history exists DIABETES-HGBA1C EVERY 6 MONTHS 11/01/2018 05/01/2018, 12/29/2017, 07/14/2017, Additional history exists CKD GFR USE SMARTSET 11346 12/26/201806/27, 06/12/2018, 06/10/2018, Additional history exists CKD PHOS USE SMARTSET 58054 12/29/2018 12/29/2017, 08/26/2009, 08/25/2009, Additional history exists DIABETES-FOOT EXAM 12/29/2018 12/29/2017, 0 10/21/2016, 12/11/2015, Additional history exists Yearly B-12 05/16/2019 05/16/2018 CKD HGB USE SMARTSET 43983 06/06/201906/06, 06/05/2018, 12/26/2017, Additional history exists BREAST [...] fileas of this encounter Visit Diagnoses Diagnosis Type 2 diabetes mellitus with hemoglobin A1c goal of 7.0%-8.0% ([facility])- Primary Uncontrolled type 2 diabetes mellitus with stage 3 chronic kidney disease, with long-term current use of insulin ([facility]) Body mass index (BMI) of 50.0 to 59.9 in adult ([facility]) Neuropathy Mononeuritis of unspecified site Fibromyalgia Mylagia and myositis, unspecified POSTSURGICAL HYPOTHYROID Postsurgical hypothyroidism DM type 2, goal: symptom mgmt (HCC) Type II or unspecified type diabetes mellitus without mention of complication, not stated as uncontrolled HTN, goal below 140/80 Unspecified essential hypertension Acute diastolic congestive heart failure (HCC) Acute diastolic heart failure Hypoxemia ELISSA (obstructive sleep apnea) Obstructive sleep apnea (adult) (pediatric) HTN, goal below 130/80 Unspecified essential hypertension Restless legs syndrome Restless legs syndrome (RLS) Depression with anxiety Dysthymic disorder in this encounter Advance Directives Patient has advance care planning documents, and code status on file. For more information, please contact: [place] [id number] Latest Code Status on File Code Status [...]
--- OUTSIDE RECORDS SUMMARY | 2023-06-01 05:59 | External Medical Summary | Summary of Care ---
Author Name Unknown Organization [place] [address] Phone Care Team Providers Care Fashion Artist Name Role Phone [place] Whiteside Primary Care Provider Reason for Visit * Reason Comments eRx-Medication Refill Encounter Details Date Type Department Care Team Description 07/17/2018 Refill Family Practice [facility] [address] [facility] [place] [address] Teddy De Oliveira MD [address] [facility] [place] [address] [phone] Fibromyalgia;POSTSURGICA L HYPOTHYROID;Anxiety state Allergies Active Allergy Reactions Severity Noted [...] 2 Tube 1 07/13/2018 07/20/20 18 Active Nortriptyline HCl (PAMELOR) 50 MG CapsuleIndications: Fibromyalgia TAKE ONE CAPSULE BY MOUTH AT BEDTIME 30 Cap 5 07/18/2018 Active levothyroxine (LEVOXYL) 200 MCG TabletIndications:P ostsurgical hypothyroidism TAKE ONE TABLET BY MOUTH ONE TIME DAILY at least 30 minutes prior to breakfast or other meds 30 Tab 5 07/18/2018 Active clonazePAM (KLONOPIN) 0.5 MG TabletIndications:A nxiety state TAKE ONE TABLET BY MOUTH TWICE DAILY 60 Tab 0 07/18/2018 Active clonazePAM (KLONOPIN) 0.5 MG TabletIndications:A nxiety state Take 1 Tab by mouth 2 times a day. 180 Tab 1 07/14/2017 07/17/20 18 Discontinued levothyroxine (LEVOXYL) 200 MCG TabletIndications:P ostsurgical hypothyroidism Take 1 Tab by mouth daily. (at least 30 min prior to breakfast or other meds) 90 Tab 1 01/26/2018 07/17/20 18 Discontinued Nortriptyline HCl (PAMELOR) 50 MG CapsuleIndications: Fibromyalgia Take 1 Cap by mouth at bedtime. 90 Cap 1 01/30/2018 07/17/20 18 Discontinued as of this encounter Active Problems Problem Noted Date Vaginal karmen 07/13/2018 Hypervolemia 07/13/2018 Acute diastolic congestive heart failure (HCC) 06/12/2018 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HCC) 0 06/12/2018 ELSIE (acute kidney injury) (HCC) 06/12/20 18 Controlled substance agreement signed Body mass index (BMI) of 50.0 to 59.9 in adult ([facility]) 06/27/2017 Overview: Per Obesity protocol #1 - Per Obesity Taxonomy ICD-10 update of inactive term Uncontrolled type 2 diabetes mellitus with stage 3 chronic kidney disease, with long-term current use of insulin ([facility]) 05/24/2017 Gastroesophageal reflux disease with eso phagitis 03/04/2017 Restless legs syndrome 03/25/2016 Fibromyalgia 02/02/2016 Abnormality of gait 02/02/2016 Type 2 diabetes mellitus with hemoglobin A1c goal of 7.0%-8.0% ([facility]) 10/14/2014 Overview: ICD-10 update of inactive term [place] filter in place 08/19/2014 History of [...] mass index (BMI) of 40.0-44.9 in adult ([facility] ) 08/17/2010 05/24/2017 Obesity, morbid (more than 1 00 lbs over ideal weight or BMI > 40) ([facility]) 12/23/2009 06/30/2017 Overview: Per Obesity Taxonomy ICD-10 update of inactive term HTN, GOAL BELOW 130/80 10/22/2009 2 Overview: Per HTN Taxonomy. Pneumonia in aspergillosis ([facility]) 09/14/2009 02/15/2017 Venous thrombosis 09/14/2009 10/15/2010 Respiratory failure, acute ([facility]) 09/14/2009 02/15/2017 Spontaneous pneumothorax 09/14/2009 017 Dysuria 08/23/2009 02/15/2017 History of heparin-induced thrombocytopenia 07/2806/12/2018 Type 2 diabetes mellitus wit h hemoglobin A1c goal of less than 7.0% ([facility]) 07/10/2009 10/14/2014 Overview: Modified per Diabetes protocol #14. ICD-10 update of inactive term Dyslipidemia, goal LDL below 160 08/16/2007 09/04/2009 Overview: Per Lipid Taxonomy. HTN, goal below 140/90 04/09/2003 0 Overview: Per HTN Taxonomy. DM type 2, not at goal ([facility]) 05/29/2002 Overview: Modified per Diabetes protocol #14. TENOSYNOVITIS FOOT-ANKLE 12/26/2001 017 Goiter 01/13/2000 06/28/2011 BACKACHE NOS 08/26/1999 05/24/2017 OBESITY, UNSPECIFIED 08/26/1999 12/23/2009 Overview: Per Obesity Taxonomy Perforation of intestine ([facility]) 0 02/15/2017 Overview: COLON Diverticulitis [...] Telephone Encounter - Ricardo Martinez MD - 07/18/2018 10:46 PM EDT Signed Prescriptions: Disp RefillsNortriptyline HCl (PAMELOR) 50 MG Capsule 30 Cap 5Sig: TAKE ONE CAPSULE BY MOUTH AT BEDTIMEAuthorizing Provider: RICARDO MARTINEZlevothyroxine (LEVOXYL) 200 MCG Tablet 30 Tab 5Sig: TAKE ONE TABLET BY MOUTH ONE TIME DAILY at least 30minutes prior to breakfast or other meds Authorizing Provider: RICARDO MARTINEZclonazePAM (KLONOPIN) 0.5 MG Tablet 60 Tab 0Sig: TAKE ONE TABLET BY MOUTH TWICE DAILYAuthorizing Provider: RICARDO MARTINEZ * Telephone Encounter - Ricardo Martinez MD - 07/18/2018 10:45 PM EDT "I have reviewed the patient's controlled substance dispensing history in the Prescription Drug Monitoring Program in compliance with the [facility] regulations before prescribing a controlled substance." * Telephone Encounter - Olivia White RN - 07/18/2018 12:34 PM EDT Pending Prescriptions: Disp Refills Nortriptyline HCl (PAMELOR) 50 MG Capsule*30 Cap 5 Sig: TAKE ONE CAPSULE BY MOUTH AT BEDTIME levothyroxine (LEVOXYL) 200 MCG Tablet [P*30 Tab 5 Sig: TAKE ONE TABLET BY MOUTH ONE TIME DAILY at least 30 minutes prior to breakfast or other meds clonazePAM (KLONOPIN) 0.5 MG Tablet [Phar*60 Tab 0 Sig: TAKE ONE TABLET BY MOUTH TWICE DAILY * Telephone Encounter - Olivia White RN - 07/18/2018 12:32 PM EDT Pending Prescriptions: Disp Refills Nortriptyline HCl (PAMELOR) 50 MG Capsule*30 Cap 0 Sig: TAKE ONE CAPSULE BY MOUTH AT BEDTIME levothyroxine (LEVOXYL) 200 MCG Tablet [P*30 Tab 0 Sig: TAKE ONE TABLET BY MOUTH ONE TIME DAILY at least 30 minutes prior to breakfast or other meds clonazePAM (KLONOPIN) 0.5 MG Tablet [Phar*60 Tab 0 Sig: TAKE ONE TABLET BY MOUTH TWICE DAILY Last Office Visit: 06/12/2018 Next Office Visit: 08/01/2018 Scheduled Provider(s): [place] Whiteside DO in this encounter Plan of Treatment Upcoming Encounters Date Type Specialty Care Team Description 07/20/2018 Pharmacy Pharmacy Sp, [facility] [address] [place] [address] [phone] 07/21/2018 Office Visit Cardiology Marjorie Powell PA-C [address] [facility] [place] [address] [phone] 08/01/2018 Office Visit Family Medicine [place] Whiteside DO [address] [place] [address] [phone] 08/29/2018 Office Visit Gastroenterology Migdalia Jacobs DO [address] [place], [place] [id number] 01/24/2019 Office Visit Nephrology Gia White MD [address] [place] [address] 05/04/2019 Office Visit Sleep Disorders Celsa Tafoya CRNP [address] [place] [address] [phone] Health Maintenance Due Date Last Done Comments DIABETES-EYE EXAM 02/24/2011 02/24/2010 (Do ne elsewhere), 12/18/2009, 02/18/2008 (Done elsewhere) PAP SMEAR-EVERY 3 YRS,AGES 21-65 05/11/2016 05/11/2013, 03/01/2008, 10/19/2006, Additional history exists DIABETES-HGBA1C EVERY 6 MONTHS 11/01/2018 05/01/2018, 12/29/2017, 07/14/2017, Additional history exists CKD GFR USE SMARTSET 39047 12/26/201806/27, 06/12/2018, 06/05/2018, Additional history exists CKD PHOS USE SMARTSET 51141 12/29/2018 12/29/2017, 08/26/2009, 08/25/2009, Additional history exists DIABETES-FOOT EXAM 12/29/2018 12/29/2017, 0 10/21/2016, 12/11/2015, Additional history exists Yearly B-12 05/16/2019 05/16/2018 CKD HGB USE SMARTSET 97396 06/05/201906/05, 12/26/2017, 05/21/2017, Additional history exists BREAST [...] fileas of this encounter Visit Diagnoses Diagnosis Fibromyalgia Mylagia and myositis, unspecified POSTSURGICAL HYPOTHYROID Postsurgical hypothyroidism Anxiety state Anxiety state, unspecified in this encounter
--- OUTSIDE RECORDS SUMMARY | 2023-06-01 05:59 | External Medical Summary | Summary of Care ---
Author Name Unknown Organization [place] [address] Care Team Providers Care Head Resident Name Role Phone Kevin Whiteside DO Primary Care Provider Reason for Visit * Reason Comments Medication Question Encounter Details Date Type Department Care Team Description 08/01/2018 Telephone Family Practice [facility] [address] [facility] [address] Kevin Whiteside DO [address] [facility] [address] Medication Question Allergies Active Allergy Reactions [...] 06/10/2018 Active furosemide (LASIX) 40 MG TabletIndications:Ac [place] diastolic congestive heart failure (HCC) Take 80mg [...] times daily 270 Cap 3 08/01/2018 Active Glucose Blood (ONETOUCH ULTRA BLUE) STRP Check sugars four times daily as directed 360 Strip 5 08/01/2018 Active Insulin Degludec (TRESIBA FLEXTOUCH) 200 [...] twice daily as directed 180 Each 5 08/01/2018 Active rOPINIRole (REQUIP) 1 MG [...] a day. 360 Tab 3 08/01/2018 Active as of this encounter Active [...] 10/14/2014 Overview: ICD-10 update of inactive term [place] filter in place 08/19/2014 History of pulmonary [...] Telephone Encounter - Izabela Crump LPN - 08/01/2018 11:35 AM EST Called pharmacy and clarified BID. Orders repeated and verified x2. * Telephone Encounter - Kevin Whiteside DO - 08/01/2018 11:04 AM EST Ok for patient to check BS twice daily instead of 4 times daily. Ok to verbalize change. * Telephone Encounter - Flaca Thayer OSA - 08/01/2018 10:57 AM EST [facility] calling regarding instructions on test strips and lancets: Lancets state check BS twice daily as directed and test strips state to test BS 4 times daily. Which is correct? If appropriate, please send RX to [id number] [address] [place], or pt can be advised at the following numbers: Patient Phone Numbers Thank you, Flaca Thayer [facility] 08/01/2018, 10:57 AM in this encounter Plan of Treatment Upcoming Encounters Date Type Specialty Care Team Description 08/03/2018 Pharmacy Pharmacy [facility] [address] [facility], [place] [id number] 08/29/2018 Office Visit Gastroenterology Migdalia Jacobs, DO [address] [place] [address] 10/23/2018 Office Visit Cardiology Marjorie Powell PAMyraC [address] [facility] [place] [address] [phone] 01/24/2019 Office Visit Nephrology [facility] [place] [id number] 03/14/2019 Office Visit Cardiology Rey Woodall MD [address] [facility] [place] [address] 05/04/2019 Office Visit Sleep Disorders Celsa Tafoya CRNP [address] [facility] [place] [address] Health Maintenance Due Date Last Done Comments DIABETES-EYE EXAM 02/24/2011 02/24/2010 (Do ne elsewhere), 12/18/2009, 02/18/2008 (Done elsewhere) PAP SMEAR-EVERY 3 YRS,AGES 21-65 05/11/2016 05/11/2013, 03/01/2008, 10/19/2006, Additional history exists DIABETES-HGBA1C EVERY 6 MONTHS 11/01/2018 05/01/2018, 12/29/2017, 07/14/2017, Additional history exists CKD GFR USE SMARTSET 42057 12/26/201806/27, 06/12/2018, 06/10/2018, Additional history exists CKD PHOS USE SMARTSET 92039 12/29/2018 12/29/2017, 08/26/2009, 08/25/2009, Additional history exists DIABETES-FOOT EXAM 12/29/2018 12/29/2017, 0 10/21/2016, 12/11/2015, Additional history exists Yearly B-12 05/16/2019 05/16/2018 CKD HGB USE SMARTSET 03063 06/06/201906/06, 06/05/2018, 12/26/2017, Additional history exists BREAST [...] For more information, please contact: [place] [phone] Latest Code Status on File Code Status [...]
--- OUTSIDE RECORDS SUMMARY | 2023-06-01 05:59 | External Medical Summary | Summary of Care ---
Author Name Unknown Organization [place] [address] Care Team Providers Care Net Developer With Wcf Name Role Phone Migue Whiteside DO Primary Care Provider Reason for Visit * Reason Comments Medication Refill 90-DS REQUESTED Encounter Details Date Type Department Care Team Description 08/01/2018 Refill Family Practice [facility] [address] [facility] [address] Migue Whiteside DO [facility] [address] HTN, goal below 130/80; Acute diastolic congestive [...] a day. 360 Tab 3 8 Active metoprolol tartrate (LOPRESSOR) 25 MG TabletIndications:H [place], goal below 130/80,Acute diastolic congestive heart failure (HCC),Body mass index (BMI) of 50.0 to 59.9 in adult (HCC),Hypoxemia,ELISSA (obstructive sleep apnea),HTN, goal below 140/80 Take 2 Tabs by mouth 2 times a day. 180 Tab 11 8 08/01/20 18 Discontinued as of this [...] 10/14/2014 Overview: ICD-10 update of inactive term [place] filter in place 08/19/2014 History of pulmonary [...] Encounter - Migue Whiteside DO - 08/01/2018 11:04 AM EST Signed Prescriptions: Disp Refills metoprolol tartrate (LOPRESSOR) 25 MG Tabl*360 Tab3 Sig: Take 2 Tabs by mouth 2 times a day. Authorizing Provider: MIGUE WHITESIDE * Telephone Encounter - Flaca Thayer OSA - 08/01/2018 10:53 AM EST [facility] REQUESTING 90-DS; Rx ADJUSTED Pending Prescriptions: Disp Refills metoprolol tartrate (LOPRESSOR) 25 MG Tab*360 Tab3 Sig: Take 2 Tabs by mouth 2 times a day. Last Office Visit: 08/01/2018 Next Office Visit: [...] AM TSH 3.14 05/01/2018 09:12 AM LDLCALC 103 10/10/2014 02:32 PM LDLDIRECT 109 07/14/2017 12:35 PM ALT 40 (H) 12/29/2017 12:43 PM HGBA1C 10.0 (H) 05/01/2018 09:12 AM in this encounter Plan of Treatment Upcoming Encounters Date Type Specialty Care Team Description 08/03/2018 Pharmacy Pharmacy Sp, [facility] [address] [place] [address] [phone] 08/29/2018 Office Visit Gastroenterology Migdalia Jacobs, [address] [facility] [address] 10/23/2018 Office Visit Cardiology Marjorie Powell PA-C [address] [facility] [place] [address] [phone] 01/24/2019 Office Visit Nephrology Gia White MD [address] [place] [address] 03/14/2019 Office Visit Cardiology Rey Woodall MD [address] [facility] [place] [address] [phone] 05/04/2019 Office Visit Sleep Disorders Celsa Tafoya CRNP [address] [facility] [place] [address] [phone] Health Maintenance Due Date Last Done Comments DIABETES-EYE EXAM 02/24/2011 02/24/2010 (Do ne elsewhere), 12/18/2009, 02/18/2008 (Done elsewhere) PAP SMEAR-EVERY 3 YRS,AGES 21-65 05/11/2016 05/11/2013, 03/01/2008, 10/19/2006, Additional history exists DIABETES-HGBA1C EVERY 6 MONTHS 11/01/2018 05/01/2018, 12/29/2017, 07/14/2017, Additional history exists CKD GFR USE SMARTSET 69164 12/26/201806/27, 06/12/2018, 06/10/2018, Additional history exists CKD PHOS USE SMARTSET 56959 12/29/2018 12/29/2017, 08/26/2009, 08/25/2009, Additional history exists DIABETES-FOOT EXAM 12/29/2018 12/29/2017, 0 10/21/2016, 12/11/2015, Additional history exists Yearly B-12 05/16/2019 05/16/2018 CKD HGB USE SMARTSET 01916 06/06/201906/06, 06/05/2018, 12/26/2017, Additional history exists BREAST [...] fileas of this encounter Visit Diagnoses Diagnosis HTN, goal below 130/80 Unspecified essential hypertension Acute diastolic congestive heart failure (HCC) Acute diastolic heart failure Body mass index (BMI) of 50.0 to 59.9 in adult (HCC) Hypoxemia ELISSA (obstructive sleep apnea) Obstructive sleep apnea (adult) (pediatric) HTN, goal below 140/80 Unspecified essential hypertension in this encounter Advance Directives Patient has advance care planning documents, and code status on file. For more information, please contact: [place] [phone] Latest Code Status on File Code Status [...]
--- OUTSIDE RECORDS SUMMARY | 2023-06-01 05:59 | External Medical Summary ---
Author Name Unknown Address [facility] [place] [address] Phone Organization K01:[facility] [address] [id number] Laboratory Report Ordering Provider Test Date Status TRACY LARRY 08/01/2018 08:24:00 Final Observation Date Value Abnormality Reference Status PTH-Intact SerPl-nc 08/01/2018 12:28 70 Above high normal 15-65 Final Performing Location [address] [address]
--- OUTSIDE RECORDS SUMMARY | 2023-06-01 05:59 | External Medical Summary | Summary of Care ---
Author Name Unknown Organization [place] [address] Care Team Providers Care Barn And Property Manager Name Role Phone Kevin Whiteside Primary Care Provider Reason for Visit * Reason Comments Congestive Heart Failure NEW PATIENT Encounter Details Date Type Department Care Team Description 07/21/2018 Office Visit Cardiology, [facility] [address] [facility] [place] [address] Marjorie Powell PA-C [address] [facility] [place] [address] HTN, goal below 130/80*; Statin intolerance; History of pulmonary embolus (PE); Chronic diastolic congestive heart failure (HCC) Allergies [...] TWICE DAILY 60 Tab 0 8 Active liraglutide (VICTOZA) 18 MG/3ML SOPNIndications:DM [...] 10/14/2014 Overview: ICD-10 update of inactive term [place] filter in place 08/19/2014 History of pulmonary [...] Used Tobacco Cessation:Counseling Given: Yes Alcohol Use Drinks/Week oz/Week Comments Yes rare Sex Assigned at Date Recorded Not on file Job Start Date Occupation Industry Not on file Not on file Not on file Travel History Travel Start Travel End as of this encounter Last Filed Vital Signs Vital Sign Reading Time Taken Blood Pressure 120/68 07/21/2018 2:31 PM EDT Pulse 92 07/21/2018 2:31 PM EDT Temperature - - Respiratory Rate 22 07/21/2018 2:31 PM EDT Oxygen Saturation - - Inhaled Oxygen Concentration - - Weight 153.7 kg (338 lb 12.8 oz) 2017 2:31 PM EDT Height - - Body Mass Index 57.77 07/21/2018 2:31 PM EDT in this encounter Progress Notes * Marjorie Powell PA-C - 08/01/2018 12:59 PM EST Cardiology F/U: HPI: Patient is a 63-year-old female here today for close cardiology follow-up. Last clinic evaluation in May [address] Woodall. History is very complex and [...] 7. Hypertensive heart disease with diastolic HF. At her last office visit patient is metoprolol was increased to 50 mg twice daily. Furosemide was continued. Patient presents today feeling relatively well. Weight continues to trend down. She is down approx 4 lbs since prior visit. Weighing herself daily. Has upcoming appt with weight loss clinic. No chest pain, worsening shortness of breath, palpitations, dizziness, syncope or near syncope. No orthopnea, PND, or increased lower extremity edema. No fever, chills, cough, hematochezia, melena, or hemoptysis. Review of Systems: See HPI for pertinent positives. All other 10 point review of systems is negative. Patient Active Problem List Diagnosis Code Other allergic rhinitis J30.89 ADVANCE DIRECTIVE INFORMATION Primary localized osteoarthrosis, lower leg M17.10 DYSLIPIDEMIA, GOAL LDL BELOW 100 E78.5 Depression with anxiety F41.8 Postsurgical hypothyroidism E89.0 Hypoxemia R09.02 ELISSA (obstructive sleep apnea) G47.33 Venous insufficiency I87.2 HTN, goal below 130/80 I10 History of pulmonary embolus (PE) Z86.711 Statin intolerance Z78.[address] [place] [address] Z95.828 Type 2 diabetes [...] ([facility]) I50.32 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[facility]) D75.82 ELSIE (acute kidney injury) ([facility]) N17.9 Vaginal karmen B37.3 Hypervolemia E87.70 Thoracic back pain M54.6 Review of patient's allergies indicates: Allergen Reactions Jardiance [Empagliflozin] Other (Please comment) 3 yeast infections in 6 weeks after starting Heparin Heparin Induced Thrombocytopenia Morphine And Related Hallucinations Tetanus Toxoid Other (Please comment) Passed out Outpatient Medications Marked as Taking for the 07/21/18 encounter (Office Visit) with Marjorie Powell PA-C Medication Sig clonazePAM (KLONOPIN) 0.5 MG Tablet TAKE ONE TABLET BY MOUTH TWICE DAILY [DISCONTINUED] levothyroxine (LEVOXYL) 200 MCG Tablet TAKE ONE TABLET BY MOUTH ONE TIME DAILY at least 30 minutes prior to breakfast or other meds [DISCONTINUED] Nortriptyline HCl (PAMELOR) 50 MG Capsule TAKE ONE CAPSULE BY MOUTH AT BEDTIME insulin aspart (NOVOLOG FLEXPEN) 100 UNIT/ML SOPN Inject 18 units breakfast, 10 units with lunch and 18 units with dinner plus sliding scale up to 100 units per day [DISCONTINUED] Insulin Degludec (TRESIBA FLEXTOUCH) 200 UNIT/ML SOPN Inject up to 160 units daily as directed furosemide (LASIX) 40 MG Tablet Take 80mg 3 days per week and 40mg all other days [DISCONTINUED] Glucose Blood (ONETOUCH ULTRA BLUE) STRP Check sugars four times daily as directed [DISCONTINUED] lisinopril (PRINIVIL) 10 MG Tablet Take 0.5 Tabs by mouth daily. [DISCONTINUED] metoprolol tartrate (LOPRESSOR) 25 MG Tablet Take 2 Tabs by mouth 2 times a day. MAG64 64 MG TBEC Take 64 mg by mouth 2 times a day. [DISCONTINUED] sertraline (ZOLOFT) 100 MG Tablet TAKE ONE AND ONE-HALF TABLETS BY MOUTH DAILY [DISCONTINUED] Insulin Pen Needle (BD PEN NEEDLE SHORT U/F) 31G X 8 MM Use 5 times daily with insulin [DISCONTINUED] cyclobenzaprine (FLEXERIL) 10 MG Tablet TAKE ONE TABLET BY MOUTH AT BEDTIME NEEDED FOR MUSCLE SPASM [DISCONTINUED] levothyroxine (LEVOXYL) 25 MCG Tablet TAKE ONE TABLET BY MOUTH IN THE MORNING ATLEAST 30 MINUTES PRIOR TO BREAKFAST OR OTHER MEDS [DISCONTINUED] gabapentin (NEURONTIN) 300 MG Capsule take 1 capsule by mouth twice daily for 2 weeks then switch to 1 three times daily [DISCONTINUED] rOPINIRole (REQUIP) 1 MG Tablet TAKE ONE TABLET BY MOUTH AT BEDTIME [DISCONTINUED] liraglutide (VICTOZA) 18 MG/3ML SOPN Inject 1.8 mg under the skin daily. As directed [DISCONTINUED] ONETOUCH DELICA LANCETS 33G MISC Check blood sugars twice daily as directed docusate sodium (STOOL SOFTENER) 100 MG Capsule Take 100 mg by mouth 2 times a day as needed for Constipation. oxygen GAS 4 LPM bled through CPAP 11 cwp during all periods of sleep. PRILOSEC 20 MG PO CPDR one tablet daily PHYSICAL EXAMINATION: BP 120/68 | Pulse 92 | Resp 22 | Wt 338 lbs 12.8 oz (153.679kg) | BMI 57.77 kg/m | BSA 2.64 m |LMP 03/11/2003 Wt Readings from Last 3 Encounters: 08/01/18 (!) 153.8 kg (339 lb) 07/25/18 (!) 153.3 kg (338 lb) 07/21/18 (!) 153.7 kg (338 lb 12.8 oz) GEN: A+O x3. NAD. Obese. HEENT exam [...] answering questions appropriately. DATA: Echocardiogram as described [facility] demonstrated hyperdynamic LV function. No valvular disease. No overt diastolic dysfunction. IMPRESSION: Complex 63-year-old female 1. Hypertensive heart disease with diastolic heart failure, appears euvolemic. 2. Hypertension - controlled 3. Morbid obesity - weight loss encouraged. Upcoming referral to weight loss management clinic. 4. Chronic respiratory failure, hypoventilation syndrome. 5. Statin intolerance? RECOMMENDATIONS: She is to continue current medications as listed above. No changes were made at today's visit. Update labs, including lipid panel in several weeks. CHF tools discussed including daily weights, salt/sodium/fluid restriction, and use of diuretic protocol. The patient agrees to the above plan and will call with additional questions or concerns. ER with all emergencies advised. Follow-up: Return in about 3 months (around 10/21/2018). | Check-out note: 3 months with F[place], 6-[address] Jose C Powell PA-C Department of Cardiology This chart was completed in part utilizing [employer] Speech Voice Recognition Software. Grammatical errors, random word insertions, prounoun errors, and incomplete sentences are an occasional consequence of this system due to software limitations, ambient noise, and hardware issues. Any formal questions or concerns about the content, text, or information contained within the body of this dictation should be directly addressed to the provider for clarification. in this encounter Nursing Notes * Anthony Garcia LPN - 07/21/2018 2:30 PM EDT Examination Room: 6 Name: Stephanie Camp Date of : (1955). Reason for Visit: f/u Interim Hospitalization(s): denies Problems/Concerns: denies at this time. Chest Pain/SOB: denies chest pain. States SOB only with over exertion. [facility] is a way you can talk to your provider online through e-mail. Would you like to sign up? I can activate it for you? DECLINES in this encounter Plan of Treatment Upcoming Encounters Date Type Specialty Care Team Description 08/03/2018 Pharmacy Pharmacy Sp, [facility] [address] [facility], [place] [address] [phone] 08/29/2018 Office Visit Gastroenterology Migdalia Jacobs, DO [address] [facility] [place] [address] [phone] 10/23/2018 Office Visit Cardiology Marjorie Powell PA-C 132 [facility] [place] [address] [phone] 01/24/2019 Office Visit Nephrology Gia White MD [facility] [address] 03/14/2019 Office Visit Cardiology Rey Woodall MD 132 [facility] [place] [address] [phone] 05/04/2019 Office Visit Sleep Disorders Celsa Tafoya CRNP [facility] [place] [address] [phone] Health Maintenance Due Date Last Done Comments DIABETES-EYE EXAM 02/24/2011 02/24/2010 (Do ne elsewhere), 12/18/2009, 02/18/2008 (Done elsewhere) PAP SMEAR-EVERY 3 YRS,AGES 21-65 05/11/2016 05/11/2013, 03/01/2008, 10/19/2006, Additional history exists DIABETES-HGBA1C EVERY 6 MONTHS 11/01/2018 05/01/2018, 12/29/2017, 07/14/2017, Additional history exists CKD GFR USE SMARTSET 28321 12/26/201806/27, 06/12/2018, 06/10/2018, Additional history exists CKD PHOS USE SMARTSET 42603 12/29/2018 12/29/2017, 08/26/2009, 08/25/2009, Additional history exists DIABETES-FOOT EXAM 12/29/2018 12/29/2017, 0 10/21/2016, 12/11/2015, Additional history exists Yearly B-12 05/16/2019 05/16/2018 CKD HGB USE SMARTSET 35623 06/06/201906/06, 06/05/2018, 12/26/2017, Additional history exists BREAST [...] Implants Not on fileas of this encounter Results * LIPID PANEL WITH DIRECT LDL IF TG ABOVE 400 MG/DL (08/01/2018 8:29 AM EST) HOURS FASTING >8 HOURS hours ISABELA RIZO TRIGLYCERIDES 283(H) Comment: TRIGLYCERIDE REFERENCE RANGES (mg/dL) <150 NORMAL 150-199BORDERLINE HIGH 200-499HIGH >499 VERY HIGH <200 mg/dL [facility] CHOLESTEROL 206(H) Comment: TOTAL CHOLESTEROL REFERENCE RANGES(mg/dL) <200 DESIRABLE 200-239BORDERLINE HIGH >239 HIGH <200 mg/dL [facility] HDL 38(L) Comment: HDL CHOLESTEROL REFERENCE RANGES(mg/dL) <40LOW(UNDESIRABLE) >59HIGH(DESIRABLE) >39 mg/dL [facility] CHOL/HDL RATIO 5.4 [facility] LDL (CALCULATED) 111 Comment: LDL CHOLESTEROL REFERENCE RANGES(mg/dL) <100 OPTIMAL GOAL FOR HIGH RISK PATIENTS 100-129NEAR OR ABOVE NORMAL 130-159BORDERLINE HIGH 160-189HIGH >189 VERY HIGH 0 - 129 mg/dL [facility] LDL DIRECT(REFLEX) NOT APPLICABLE 0 - 129 mg/dL [facility] Performing Organization Address City/State/Zipcod e Phone Number [facility], [address] [place] [address] ISABELA Bobo Rizo, [address] [facility] [place] [address] in this encounter Visit Diagnoses Diagnosis HTN, goal below 130/80- Primary Unspecified essential hypertension Statin intolerance Other drug allergy History of pulmonary embolus (PE) Personal history of pulmonary embolism Chronic diastolic congestive heart failure (HCC) Chronic diastolic heart failure in this encounter Advance Directives Patient has advance care planning documents, and code status on file. For more information, please contact: [place] [phone] Latest Code Status on File Code Status [...]
--- OUTSIDE RECORDS SUMMARY | 2023-06-01 05:59 | External Medical Summary | Summary of Care ---
Author Name Unknown Organization [place] [address] Care Team Providers Care Chart Reader Name Role Phone Kevin Whiteside Primary Care Provider Reason for Visit * Reason Comments case management Encounter Details Date Type Department Care Team Description 08/01/2018 Telephone Internal Medicine [address] [address] Frances Nicholson, RN [address] [place] [address] case management Allergies Active Allergy Reactions [...] 06/10/2018 Active furosemide (LASIX) 40 MG TabletIndications:Ac [place] diastolic congestive heart failure (HCC) Take 80mg [...] mouth daily. 90 Tab 3 08/01/2018 Active metoprolol tartrate (LOPRESSOR) 25 MG TabletIndications:HT N, goal below 130/80,Acute diastolic congestive heart failure (HCC),Body mass index (BMI) of 50.0 to 59.9 in adult (HCC),Hypoxemia,ELISSA (obstructive sleep apnea),HTN, goal below 140/80 Take 2 Tabs by mouth 2 times a day. 180 Tab 11 08/01/2018 Active Nortriptyline HCl (PAMELOR) 50 [...] MOUTH DAILY 135 Tab 1 08/01/2018 Active as of this encounter Active [...] 10/14/2014 Overview: ICD-10 update of inactive term [place] filter in place 08/19/2014 History of [...] Telephone Encounter - Frances Nicholson RN - 08/01/2018 8:43 AM EST PMH: DM, HTN, SOA with CPAP, [...] potassium and Mg Stopped Metformin and HCTZ Met with pt at PCP appt today Pt tearful, upset and reports that she will be losing her health insurance as of 08/04. Says she only gets 2000$/month and cannot afford to purchase her meds. Reports that her BS finally have improved and now she won't be able to afford her medicine Says she has felt alright otherwise Attending Physical therapy Weight today at PCP office is 339 Denies increased edema Denies increased SOB Denies N/V or poor intake Ongoing joint, neck and back pain PCP will do 3 month med fill for t will refer to [facility] to assist with options along with [employer] T[employer]ER Reminded to call with s/s of HF or unmanged Will contact pt in 2-4 weeks Frances Nicholson, cement gun operator [phone] in this encounter Plan of Treatment Upcoming Encounters Date Type Specialty Care Team Description 08/03/2018 Pharmacy Pharmacy Sp, [facility] [address] [place] [address] [phone] 08/29/2018 Office Visit Gastroenterology Migdalia Jacobs, [address] [facility] [place] [address] 10/23/2018 Office Visit Cardiology Marjorie Powell PA-C 132 [facility] [place] [address] [phone] 01/24/2019 Office Visit Nephrology Gia White MD [address] [facility] [place] [facility] [place] [address] 03/14/2019 Office Visit Cardiology Rey Woodall MD [address] [place] [address] [phone] 05/04/2019 Office Visit Sleep Disorders Celsa Tafoya CRNP [address] [facility] [place] [address] [phone] Health Maintenance Due Date Last Done Comments DIABETES-EYE EXAM 02/24/2011 02/24/2010 (Do ne elsewhere), 12/18/2009, 02/18/2008 (Done elsewhere) PAP SMEAR-EVERY 3 YRS,AGES 21-65 05/11/2016 05/11/2013, 03/01/2008, 10/19/2006, Additional history exists DIABETES-HGBA1C EVERY 6 MONTHS 11/01/2018 05/01/2018, 12/29/2017, 07/14/2017, Additional history exists CKD GFR USE SMARTSET 81821 12/26/201806/27, 06/12/2018, 06/10/2018, Additional history exists CKD PHOS USE SMARTSET 43472 12/29/2018 12/29/2017, 08/26/2009, 08/25/2009, Additional history exists DIABETES-FOOT EXAM 12/29/2018 12/29/2017, 0 10/21/2016, 12/11/2015, Additional history exists Yearly B-12 05/16/2019 05/16/2018 CKD HGB USE SMARTSET 67196 06/06/201906/06, 06/05/2018, 12/26/2017, Additional history exists BREAST [...] For more information, please contact: [place] [phone] Latest Code Status on File Code Status [...]
--- OUTSIDE RECORDS SUMMARY | 2023-06-01 05:59 | External Medical Summary | Summary of Care ---
Author Name [place] [address] Phone Care Team Providers Care Microbiology Instructor Name Role Phone Kevin Whiteside Primary Care Provider Reason for Visit * Reason Comments Dosage Adjustment Via Phone (anticoag Cl inic) DIABETES FOLLOW-UP Encounter Details Date Type Department Care Team Description 07/20/2018 Pharmacy Pharmacy, [facility] [address] [facility] [place] [address] [address], [facility] [address] [facility] [place] [address] [phone] Uncontrolled type 2 diabetes mellitus with stage 3 chronic kidney disease, with long-term current use of insulin ([facility])*;Type 2 diabetes mellitus with hemoglobin A1c goal of 7.0%-8.0% ([facility]) Allergies Active Allergy [...] 06/27/2018 Active furosemide (LASIX) 40 MG TabletIndications:[place] diastolic congestive heart failure (HCC) Take [...] days. 2 Tube 1 07/13/2018 07/20/2018 Active Nortriptyline HCl (PAMELOR) 50 MG CapsuleIndications:F ibromyalgia TAKE ONE CAPSULE BY MOUTH AT BEDTIME 30 Cap 5 07/18/2018 Active levothyroxine (LEVOXYL) 200 MCG TabletIndications:Po stsurgical hypothyroidism TAKE ONE TABLET BY MOUTH ONE TIME DAILY at least 30 minutes prior to breakfast or other meds 30 Tab 5 07/18/2018 Active clonazePAM (KLONOPIN) 0.5 MG TabletIndications:An xiety state TAKE ONE TABLET BY MOUTH TWICE DAILY 60 Tab 0 07/18/2018 Active as of this encounter Active Problems Problem Noted Date Vaginal karmen 07/13/2018 Hypervolemia 07/13/2018 Acute diastolic congestive heart failure (HCC) 06/12/2018 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HCC) 0 06/12/2018 ELSIE (acute kidney injury) ([facility]) 06/12/20 18 Controlled substance agreement signed Body mass index (BMI) of 50.0 to 59.9 in adult ([facility]) 06/27/2017 Overview: Per Obesity protocol #1 - Per Obesity Taxonomy ICD-10 update of inactive term Uncontrolled type 2 diabetes mellitus with stage 3 chronic kidney disease, with long-term current use of insulin ([facility]) 05/24/2017 Gastroesophageal reflux disease with eso phagitis 03/04/2017 Restless legs syndrome 03/25/2016 Fibromyalgia 02/02/2016 Abnormality of gait 02/02/2016 Type 2 diabetes mellitus with hemoglobin A1c goal of 7.0%-8.0% ([facility]) 10/14/2014 Overview: ICD-10 update of inactive [...] mass index (BMI) of 40.0-44.9 in adult ([facility] ) 08/17/2010 05/24/2017 Obesity, morbid (more than 1 00 lbs over ideal weight or BMI > 40) ([facility]) 12/23/2009 06/30/2017 Overview: Per Obesity Taxonomy ICD-10 update of inactive term HTN, GOAL BELOW 130/80 10/22/2009 2 Overview: Per HTN Taxonomy. Pneumonia in aspergillosis ([facility]) 09/14/2009 02/15/2017 Venous thrombosis 09/14/2009 10/15/2010 Respiratory failure, acute ([facility]) 09/14/2009 02/15/2017 Spontaneous pneumothorax 09/14/2009 017 Dysuria 08/23/2009 02/15/2017 History of heparin-induced thrombocytopenia 07/2806/12/2018 Type 2 diabetes mellitus wit h hemoglobin A1c goal of less than 7.0% ([facility]) 07/10/2009 10/14/2014 Overview: Modified per Diabetes protocol #14. ICD-10 update of inactive term Dyslipidemia, goal LDL below 160 08/16/2007 09/04/2009 Overview: Per Lipid Taxonomy. HTN, goal below 140/90 04/09/2003 0 Overview: Per HTN Taxonomy. DM type 2, not at goal ([facility]) 05/29/2002 Overview: Modified per Diabetes protocol #14. TENOSYNOVITIS FOOT-ANKLE 12/26/2001 017 Goiter 01/13/2000 06/28/2011 BACKACHE NOS 08/26/1999 05/24/2017 OBESITY, UNSPECIFIED 08/26/1999 12/23/2009 Overview: Per Obesity Taxonomy Perforation of intestine ([facility]) 0 02/15/2017 Overview: COLON Diverticulitis as of [...] Not on file as of this encounter Progress Notes * Frances Ellis, [facility] - 07/20/2018 2:51 PM EDT Formatting of this note may be different from the original. Diabetes telephone follow - up 07/20/2018 Patient Phone Numbers - Reason for call: Following up with patient on blood sugars since insulin changes 1 week ago. - Current diabetic medications: Increase Tresiba 140 units daily Victoza 1.8 mg daily Increase Novolog 18 units with breakfast (increase), 10 units lunch, 18 units at dinner + CF 1:30 over 120 (tighten) at meals and bedtime - Glucose review/ SMBG: Pre am 291 289 261 265 229 242 377 Average 279 Hi [address] 269[address]6 Range 148 Therapy Management Assessment/Plan: 1) Diabetes: Increase Tresiba 152 units daily Victoza 1.8 mg daily Novolog 18 units with breakfast, 10 units lunch, 18 units at dinner + CF 1:30 over 120 at meals andbedtime Follow up in 2 weeks. Frances Duong, Pharm D, BCACP Clinical Pharmacist [facility] 07/20/2018, 2:51 PM in this encounter Plan of Treatment Upcoming Encounters Date Type Specialty Care Team Description 07/21/2018 Office Visit Cardiology Marjorie Powell PA-C [address] [place] [address] [phone] 08/01/2018 Office Visit Family Medicine Kevin Whiteside DO [address] [address] [phone] 08/03/2018 Pharmacy Pharmacy , [facility] [address] [place] [address] [phone] 08/29/2018 Office Visit Gastroenterology [facility]alia Jacobs DO [address] [facility] [address] [phone] 01/24/2019 Office Visit Nephrology Gia White MD [address] [phone] 05/04/2019 Office Visit Sleep Disorders Celsa Tafoya CRNP [address] [address] [phone] Health Maintenance Due Date Last Done Comments DIABETES-EYE EXAM 02/24/2011 02/24/2010 (Do ne elsewhere), 12/18/2009, 02/18/2008 (Done elsewhere) PAP SMEAR-EVERY 3 YRS,AGES 21-65 05/11/2016 05/11/2013, 03/01/2008, 10/19/2006, Additional history exists DIABETES-HGBA1C EVERY 6 MONTHS 11/01/2018 05/01/2018, 12/29/2017, 07/14/2017, Additional history exists CKD GFR USE SMARTSET 55787 12/26/201806/27, 06/12/2018, 06/05/2018, Additional history exists CKD PHOS USE SMARTSET 16379 12/29/2018 12/29/2017, 08/26/2009, 08/25/2009, Additional history exists DIABETES-FOOT EXAM 12/29/2018 12/29/2017, 0 10/21/2016, 12/11/2015, Additional history exists Yearly B-12 05/16/2019 05/16/2018 CKD HGB USE SMARTSET 56578 06/05/201906/05, 12/26/2017, 05/21/2017, Additional history exists BREAST [...] long-term current use of insulin (HCC) - Primary Type 2 diabetes mellitus wit h hemoglobin A1c goal of 7.0%-8.0% (HCC) in this encounter
--- OUTSIDE RECORDS SUMMARY | 2023-06-01 06:00 | External Medical Summary | Summary of Care ---
Author Name Unknown Organization [facility] [place] [address] Phone Care Team Providers Care Actuarial Assistant Name Role Phone Kevin Whiteside Primary Care Provider Reason for Visit * Reason Comments NEW PATIENT * Evaluate & Treat - Unlimited Visits (Within 10 days (routine)) Status Reason Specialty Diagnoses / Procedures Referred By Contact Referred To Contact Authorized Specialty Services Required Nephrology Diagnoses ELSIE (acute kidney injury) ([facility]) Sanjiv Tolliver DO [address] [place] [address] Encounter Details Date Type Department Care Team Description 07/13/2018 Office Visit Nephrology, [facility] [address] [place] [address] Gia White MD [address] [place] [address] Kidney disease, chronic, stage III (GFR 30-59 ml/min) ([facility])*;HTN, goal below 140/90;Vaginal karmen;Other hypervolemia Allergies Active [...] to 59.9 in adult ([facility]) 06/27/2017 Overview: Per Obesity protocol #1 - Per Obesity Taxonomy ICD-10 update of inactive term Uncontrolled type 2 diabetes mellitus with stage 3 chronic kidney disease, with long-term current use of insulin ([facility]) 05/24/2017 Gastroesophageal reflux disease with eso phagitis 03/04/2017 Restless legs syndrome 03/25/2016 Fibromyalgia 02/02/2016 Abnormality of gait 02/02/2016 Type 2 diabetes mellitus with hemoglobin A1c goal of 7.0%-8.0% ([facility]) 10/14/2014 Overview: ICD-10 update of [...] mass index (BMI) of 40.0-44.9 in adult ([facility] ) 08/17/2010 05/24/2017 Obesity, morbid (more than 1 00 lbs over ideal weight or BMI > 40) ([facility]) 12/23/2009 06/30/2017 Overview: Per Obesity Taxonomy ICD-10 update of inactive term HTN, GOAL BELOW 130/80 10/22/2009 2 Overview: Per HTN Taxonomy. Pneumonia in aspergillosis ([facility]) 09/14/2009 02/15/2017 Venous thrombosis 09/14/2009 10/15/2010 Respiratory failure, acute ([facility]) 09/14/2009 02/15/2017 Spontaneous pneumothorax 09/14/2009 017 Dysuria 08/23/2009 02/15/2017 History of heparin-induced thrombocytopenia 07/2806/12/2018 Type 2 diabetes mellitus wit h hemoglobin A1c goal of less than 7.0% ([facility]) 07/10/2009 10/14/2014 Overview: Modified per Diabetes protocol #14. ICD-10 update of inactive term Dyslipidemia, goal LDL below 160 08/16/2007 09/04/2009 Overview: Per Lipid Taxonomy. HTN, goal below 140/90 04/09/2003 0 Overview: Per HTN Taxonomy. DM type 2, not at goal ([facility]) 05/29/2002 Overview: Modified per Diabetes protocol #14. TENOSYNOVITIS FOOT-ANKLE 12/26/2001 017 Goiter 01/13/2000 06/28/2011 BACKACHE NOS 08/26/1999 05/24/2017 OBESITY, UNSPECIFIED 08/26/1999 12/23/2009 Overview: Per Obesity Taxonomy Perforation of intestine ([facility]) 0 02/15/2017 Overview: COLON Diverticulitis [...] female seen in initial consultation in the [facility] Nephrology office. She has history of [...] hydronephrosis. She was recently hospitalized at the [facility] for shortness of breath found have acute [...] type 2, not at goal ([facility]) Goiter Frank filter in place 08/19/2014 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[facility]) 08/22/2009 History of pulmonary embolus [...] TRACHEOSTOMY PLANNED performed by DANNY HOLDER at [facility] KNEE ARTHROSCOPY/DEBRIDEMENT 07/30 L knee [...] N/A Years of education: N/A Occupational History [employer] [place] [address] Social History Main Topics Smoking status: Former Smoker Packs/day: 1.00 Years: 15.00 Quit date: 08/26/1997 Smokeless tobacco: Never Used Alcohol use Yes Comment: rare Drug use: No Sexual activity: Not on file Other Topics Concern Not on file Social History Narrative 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 [employer] Filed Vitals: 07/13/18 1114 BP: 126/74 Pulse: [...] disease, chronic, stage III (GFR 30-59 ml/min) ([facility]) Patient with the CKD stage [...] Care Team Description 07/20/2018 Pharmacy Pharmacy Sp, [facility] [address] [place] [address] [phone] 07/21/2018 Office Visit Cardiology Marjorie Powell PA-C [address] [facility] [place] [address] [phone] 08/01/2018 Office Visit Family Medicine Kevin Whiteside, [address] [facility] [place] [address] [phone] 08/29/2018 Office Visit Gastroenterology Migdalia Jacobs, DO [address] [facility] [address] 01/24/2019 Office Visit Nephrology Gia White MD [address] [facility] [place] [address] 05/04/2019 Office Visit Sleep Disorders Celsa Tafoya CRNP [address] [facility] [place] [address] [phone] Scheduled Tests Name Priority Associated Diagnoses Order S chedule URINE W/ MICROSCOPIC Routine Kidney disease, chronic, stage III (GFR 30-59 ml/min) ([facility]) Ordered: 07/13/2018 25-HYDROXY VITAMIN D Routine Kidney disease, chronic, stage III (GFR 30-59 ml/min) ([facility]) Expected: 07/17/2018 (Approximate), Expires: 10/13/2018 PTH, INTACT Routine Kidney disease, chronic, stage III (GFR 30-59 ml/min) ([facility]) Expected: 07/17/2018 (Approximate), Expires: 10/13/2018 Health Maintenance Due Date Last Done Comments DIABETES-EYE EXAM 02/24/2011 02/24/2010 (Do ne elsewhere), 12/18/2009, 02/18/2008 (Done elsewhere) PAP SMEAR-EVERY 3 YRS,AGES 21-65 05/11/2016 05/11/2013, 03/01/2008, 10/19/2006, Additional history exists DIABETES-HGBA1C EVERY 6 MONTHS 11/01/2018 05/01/2018, 12/29/2017, 07/14/2017, Additional history exists CKD GFR USE SMARTSET 82574 12/26/201806/27, 06/12/2018, 06/05/2018, Additional history exists CKD PHOS USE SMARTSET 62427 12/29/2018 12/29/2017, 08/26/2009, 08/25/2009, Additional history exists DIABETES-FOOT EXAM 12/29/2018 12/29/2017, 0 10/21/2016, 12/11/2015, Additional history exists Yearly B-12 05/16/2019 05/16/2018 CKD HGB USE SMARTSET 91260 06/05/201906/05, 12/26/2017, 05/21/2017, Additional history exists BREAST [...] chronic, sta ge III (GFR 30-59 ml/min) ([facility]) - Primary Chronic kidney disease, Stage III (moderate) HTN, goal below 140/90 Unspecified essential hypertension Vaginal karmen Candidiasis of vulva and vagina Other hypervolemia in this encounter
--- OUTSIDE RECORDS SUMMARY | 2023-06-01 06:00 | External Medical Summary | Summary of Care ---
Author Name Unknown [place] [address] Phone Care Team Providers Care Seed Production Field Supervisor Name Role Phone Kevin Whiteside Primary Care Provider Reason for Visit * Reason Comments Dosage Adjustment Via Phone (anticoag Cl inic) DIABETES FOLLOW-UP Encounter Details Date Type Department Care Team Description 07/06/2018 Pharmacy Pharmacy, [facility] [address] [facility] [place] [address] Sp, [facility] [address] [facility] [place] [address] [phone] Uncontrolled type 2 diabetes mellitus with stage 3 chronic kidney disease, with long-term current use of insulin ([facility])*;Type 2 diabetes mellitus with hemoglobin A1c goal of 7.0%-8.0% ([facility]) Allergies Active Allergy Reactions Severity Noted [...] for Constipation. Active clonazePAM (KLONOPIN) 0.5 MG TabletIndications:Anx iety state Take 1 Tab by mouth 2 times a day. 180 Tab 1 07/14/2017 Active levothyroxine (LEVOXYL) 200 MCG TabletIndications:Pos tsurgical hypothyroidism Take 1 Tab by mouth daily. (at least 30 min prior to breakfast or other meds) 90 Tab 1 01/26/2018 Active Nortriptyline HCl (PAMELOR) 50 MG CapsuleIndications:Fi [...] 1 06/07/2018 Active MAG64 64 MG TBEC 06/10/2018 Active lisinopril (PRINIVIL) 10 MG TabletIndications:HTN [...] 50.0 to 59.9 in adult ([facility]),Hypoxemia,ELISSA (obstructive sleep apnea),HTN, goal below 140/80 Take 2 Tabs by mouth 2 times a day. 120 Tab 11 06/23/2018 Active insulin aspart (NOVOLOG FLEXPEN) 100 UNIT/ML SOPN Inject 15 units breakfast, 10 units with lunch and 18 units with dinner plus sliding scale up to 80 units per day 10 Pre-filled Pen Syringe Dosing Unit 5 06/27/2018 Active Glucose Blood (ONETOUCH ULTRA BLUE) STRP Check sugars four times daily as directed 100 Strip 5 06/27/2018 Active Insulin Degludec (TRESIBA FLEXTOUCH) 200 UNIT/ML SOPN Inject up to 160 units daily as directed 1 Box Dosing Unit 5 07/03/2018 Active furosemide (LASIX) 40 MG TabletIndications:Acu te diastolic congestive heart failure (HCC) Take 80mg 3 days per week and 40mg all other days 35 Tab 5 07/03/2018 Active as of this encounter Active Problems Problem Noted Date Acute diastolic congestive heart failure (HCC) 06/12/2018 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[facility]) 0 06/12/2018 ELSIE (acute kidney injury) ([facility]) 06/12/20 18 Controlled substance agreement signed Body mass index (BMI) of 50.0 to 59.9 in adult ([facility]) 06/27/2017 Overview: Per Obesity protocol #1 - Per Obesity Taxonomy ICD-10 update of inactive term Uncontrolled type 2 diabetes mellitus with stage 3 chronic kidney disease, with long-term current use of insulin ([facility]) 05/24/2017 Gastroesophageal reflux disease with eso phagitis 03/04/2017 Restless legs syndrome 03/25/2016 Fibromyalgia 02/02/2016 Abnormality of gait 02/02/2016 Type 2 diabetes mellitus with hemoglobin A1c goal of 7.0%-8.0% ([facility]) 10/14/2014 Overview: ICD-10 update of inactive term [place] filter in place 08/19/2014 History of pulmonary [...] mass index (BMI) of 40.0-44.9 in adult ([facility] ) 08/17/2010 05/24/2017 Obesity, morbid (more than 1 00 lbs over ideal weight or BMI > 40) ([facility]) 12/23/2009 06/30/2017 Overview: Per Obesity Taxonomy ICD-10 update of inactive term HTN, GOAL BELOW 130/80 10/22/2009 2 Overview: Per HTN Taxonomy. Pneumonia in aspergillosis ([facility]) 09/14/2009 02/15/2017 Venous thrombosis 09/14/2009 10/15/2010 Respiratory failure, acute ([facility]) 09/14/2009 02/15/2017 Spontaneous pneumothorax 09/14/2009 017 Dysuria 08/23/2009 02/15/2017 History of heparin-induced thrombocytopenia 07/2806/12/2018 Type 2 diabetes mellitus wit h hemoglobin A1c goal of less than 7.0% ([facility]) 07/10/2009 10/14/2014 Overview: Modified per Diabetes protocol #14. ICD-10 update of inactive term Dyslipidemia, goal LDL below 160 08/16/2007 09/04/2009 Overview: Per Lipid Taxonomy. HTN, goal below 140/90 04/09/2003 0 Overview: Per HTN Taxonomy. DM type 2, not at goal ([facility]) 05/29/2002 Overview: Modified per Diabetes protocol #14. [...] this encounter Progress Notes * Frances Ellis, [facility] - 07/06/2018 2:08 PM EDT Formatting of this note may be different from the original. Diabetes telephone follow - up 07/06/2018 Patient Phone Numbers - Reason for call: BGs have increased since switching to Tresiba, some into 400's. - Current diabetic medications: Switch to Tresiba 124 units daily TODAY Victoza 1.8 mg daily Novolog 15 units with breakfast, 10 units lunch, 18 units at dinner + CF 1:40 over 120 (tighten) - Glucose review/ SMBG: Patient reports BGs in mid 200's Hypoglycemia: none. Therapy Management Assessment/Plan: 1) Diabetes: Increase Tresiba 136 units daily Victoza 1.8 mg daily Novolog 15 units with breakfast, 10 units lunch, 18 units at dinner + CF 1:40 over 120 (tighten) Follow up in 1 week. Frances Duong, Pharm D, BCACP Clinical Pharmacist Medication Therapy [facility] 07/06/2018 2:09 PM in this encounter Plan of Treatment Upcoming Encounters Date Type Specialty Care Team Description 07/13/2018 Pharmacy Pharmacy Sp, [facility] [address] [place] [address] [phone] 07/13/2018 Office Visit Nephrology Gia White MD [address] [place] [address] [phone] 07/21/2018 Office Visit Cardiology Marjorie Powell PA-C [address] [facility] [place] [address] [phone] 08/01/2018 Office Visit Family Medicine Kevin Whiteside DO [address] [place] [address] [phone] 08/29/2018 Office Visit Gastroenterology Migdalia Jacobs, [address] [place], [place] [id number] 05/04/2019 Office Visit Sleep Disorders Celsa Tafoya CRNP [address] [place] [address] [phone] Health Maintenance Due Date Last Done Comments DIABETES-EYE EXAM 02/24/2011 02/24/2010 (Do ne elsewhere), 12/18/2009, 02/18/2008 (Done elsewhere) PAP SMEAR-EVERY 3 YRS,AGES 21-65 05/11/2016 05/11/2013, 03/01/2008, 10/19/2006, Additional history exists DIABETES-HGBA1C EVERY 6 MONTHS 11/01/2018 05/01/2018, 12/29/2017, 07/14/2017, Additional history exists CKD GFR USE SMARTSET 65026 12/26/201806/27, 06/12/2018, 06/05/2018, Additional history exists CKD PHOS USE SMARTSET 47887 12/29/2018 12/29/2017, 08/26/2009, 08/25/2009, Additional history exists DIABETES-FOOT EXAM 12/29/2018 12/29/2017, 0 10/21/2016, 12/11/2015, Additional history exists Yearly B-12 05/16/2019 05/16/2018 CKD HGB USE SMARTSET 02251 06/05/201906/05, 12/26/2017, 05/21/2017, Additional history exists BREAST [...] wit h hemoglobin A1c goal of 7.0%-8.0% ([facility]) in this encounter
--- OUTSIDE RECORDS SUMMARY | 2023-06-01 06:00 | External Medical Summary | Summary of Care ---
Author Name Unknown Organization [place] [address] Phone Care Team Providers Care Philatelic Consultant Name Role Phone Kevin Whiteside Primary Care Provider Reason for Visit * Reason Comments [facility]: Engagement Encounter Details Date Type Department Care Team Description 07/11/2018 Telephone [facility] [address] [address] Shyann Webster, [place] [address] [place] [address] [facility]: Engagement Allergies Active Allergy [...] congestive heart failure (HCC) 06/12/2018 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[facility]) 0 06/12/2018 ELSIE (acute kidney injury) ([facility]) 06/12/20 18 Controlled substance agreement signed Body mass index (BMI) of 50.0 to 59.9 in adult ([facility]) 06/27/2017 Overview: Per Obesity protocol #1 - Per Obesity Taxonomy ICD-10 update of inactive term Uncontrolled type 2 diabetes mellitus with stage 3 chronic kidney disease, with long-term current use of insulin ([facility]) 05/24/2017 Gastroesophageal reflux disease with eso phagitis 03/04/2017 Restless legs syndrome 03/25/2016 Fibromyalgia 02/02/2016 Abnormality of gait 02/02/2016 Type 2 diabetes mellitus with hemoglobin A1c goal of 7.0%-8.0% ([facility]) 10/14/2014 Overview: ICD-10 update of inactive term [place] filter in place 08/19/2014 History of pulmonary [...] mass index (BMI) of 40.0-44.9 in adult ([facility] ) 08/17/2010 05/24/2017 Obesity, morbid (more than 1 00 lbs over ideal weight or BMI > 40) ([facility]) 12/23/2009 06/30/2017 Overview: Per Obesity Taxonomy ICD-10 update of inactive term HTN, GOAL BELOW 130/80 10/22/2009 2 Overview: Per HTN Taxonomy. Pneumonia in aspergillosis ([facility]) 09/14/2009 02/15/2017 Venous thrombosis 09/14/2009 10/15/2010 Respiratory failure, acute ([facility]) 09/14/2009 02/15/2017 Spontaneous pneumothorax 09/14/2009 017 Dysuria 08/23/2009 02/15/2017 History of heparin-induced thrombocytopenia 07/2806/12/2018 Type 2 diabetes mellitus wit h hemoglobin A1c goal of less than 7.0% ([facility]) 07/10/2009 10/14/2014 Overview: Modified per Diabetes protocol #14. ICD-10 update of inactive term Dyslipidemia, goal LDL below 160 08/16/2007 09/04/2009 Overview: Per Lipid Taxonomy. HTN, goal below 140/90 04/09/2003 0 Overview: Per HTN Taxonomy. DM type 2, not at goal ([facility]) 05/29/2002 Overview: Modified per Diabetes protocol [...] encounter Miscellaneous Notes * Telephone Encounter - Shyann Webster LPN - 07/11/2018 2:51 PM EDT Stephanie Camp was referred as a potential candidate for enrollment in the [facility] for [facility] by: Case Management. A review of this chart was completed and Stephanie is a candidate for Home Based Medical Care. Attempted to contact Stephanie about [facility] and the benefits of enrolling in the program but was not able to contact. Will attempt 2nd call. Phone call to patient left message for a return call to discuss the program was referred by software manager . in this encounter Plan of Treatment Upcoming Encounters Date Type Specialty Care Team Description 07/13/2018 Pharmacy Pharmacy Sp, [facility] [address] [place] [address] [phone] 07/13/2018 Office Visit Nephrology Gia White MD [address] [facility] [place] [address] [phone] 07/21/2018 Office Visit Cardiology Marjorie Powell, EVIN [address] [place] [address] [phone] 08/01/2018 Office Visit Family Medicine Kevin Whiteside, [address] [place] [address] [phone] 08/29/2018 Office Visit Gastroenterology Migdalia Jacobs, DO [address] [facility] [place] [id number] 05/04/2019 Office Visit Sleep Disorders Celsa Tafoya CRNP [address] [place] [address] [phone] Health Maintenance Due Date Last Done Comments DIABETES-EYE EXAM 02/24/2011 02/24/2010 (Do ne elsewhere), 12/18/2009, 02/18/2008 (Done elsewhere) PAP SMEAR-EVERY 3 YRS,AGES 21-65 05/11/2016 05/11/2013, 03/01/2008, 10/19/2006, Additional history exists DIABETES-HGBA1C EVERY 6 MONTHS 11/01/2018 05/01/2018, 12/29/2017, 07/14/2017, Additional history exists CKD GFR USE SMARTSET 76795 12/26/201806/27, 06/12/2018, 06/05/2018, Additional history exists CKD PHOS USE SMARTSET 29587 12/29/2018 12/29/2017, 08/26/2009, 08/25/2009, Additional history exists DIABETES-FOOT EXAM 12/29/2018 12/29/2017, 0 10/21/2016, 12/11/2015, Additional history exists Yearly B-12 05/16/2019 05/16/2018 CKD HGB USE SMARTSET 94556 06/05/201906/05, 12/26/2017, 05/21/2017, Additional history exists BREAST [...]
--- OUTSIDE RECORDS SUMMARY | 2023-06-01 06:00 | External Medical Summary | Summary of Care ---
Author Name Unknown Organization [place] [address] Phone Care Team Providers Care Wound/Ostomy Clinical Nurse Specialist Name Role Phone Kevin Whiteside Primary Care Provider Reason for Visit * Reason Comments ADVICE Fluid Level Update Encounter Details Date Type Department Care Team Description 07/03/2018 [address], [facility] [address] Rey Woodall MD [address] [place] [address] ADVICE (Fluid Level Update) Allergies Active Allergy Reactions Severity Noted Date [...] a day as needed for Constipation. Active insulin glargine (INSULIN GLARGINE) 100 UNIT/ML SOPNIndications:Type 2 diabetes mellitus with hemoglobin A1c goal of 7.0%-8.0% ([facility]) Inject 66 Units under the skin 2 times a day. Titrate by 2 units until SBGM <150 2 Pre-filled Pen Syringe Dosing Unit 11 05/24/2017 Active clonazePAM (KLONOPIN) 0.5 MG TabletIndications:Anx iety [...] 50.0 to 59.9 in adult ([facility]),Hypoxemia,ELISSA (obstructive sleep apnea),HTN, goal below 130/80 Take 0.5 Tabs by mouth daily. 50 Tab 3 06/23/2018 Active metoprolol tartrate (LOPRESSOR) 25 MG TabletIndications:HTN , goal below 130/80,Acute diastolic congestive heart failure (HCC),Body mass index (BMI) of 50.0 to 59.9 in adult ([facility]),Hypoxemia,ELISSA (obstructive sleep apnea),HTN, goal below [...] MG TabletIndications:Acu te diastolic congestive heart failure ([facility]) Take 1 Tab by mouth daily. Take 1 extra tab today, Tuesday and Tuesday, then return to 1 tablet daily 35 Tab 5 06/30/2018 Active as of this encounter Active Problems Problem Noted Date Acute diastolic congestive heart failure ([facility]) 06/12/2018 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[facility]) 0 06/12/2018 ELSIE (acute kidney injury) ([facility]) 06/12/20 18 Controlled substance agreement signed Body mass index (BMI) of 50.0 to 59.9 in adult ([facility]) 06/27/2017 Overview: Per Obesity protocol #1 - Per Obesity Taxonomy ICD-10 update of inactive term Uncontrolled type 2 diabetes mellitus with stage 3 chronic kidney disease, with long-term current use of insulin ([facility]) 05/24/2017 Gastroesophageal reflux disease with eso phagitis 03/04/2017 Restless legs syndrome 03/25/2016 Fibromyalgia 02/02/2016 Abnormality of gait 02/02/2016 Type 2 diabetes mellitus with hemoglobin A1c goal of 7.0%-8.0% ([facility]) 10/14/2014 Overview: ICD-10 update of inactive term [place] filter in place 08/19/2014 History of [...] (BMI) of 40.0-44.9 in adult ([facility] ) 08/17/2010 05/24/2017 Obesity, morbid (more than 1 00 lbs over ideal weight or BMI > 40) ([facility]) 12/23/2009 06/30/2017 Overview: Per Obesity Taxonomy ICD-10 update of inactive term HTN, GOAL BELOW 130/80 10/22/2009 2 Overview: Per HTN Taxonomy. Pneumonia in aspergillosis ([facility]) 09/14/2009 02/15/2017 Venous thrombosis 09/14/2009 10/15/2010 Respiratory failure, acute ([facility]) 09/14/2009 02/15/2017 Spontaneous pneumothorax 09/14/2009 017 Dysuria 08/23/2009 02/15/2017 History of heparin-induced thrombocytopenia 07/2806/12/2018 Type 2 diabetes mellitus wit h hemoglobin A1c goal of less than 7.0% ([facility]) 07/10/2009 10/14/2014 Overview: Modified per Diabetes [...] Telephone Encounter - Rey Woodall MD - 07/03/2018 12:39 PM EDT Change furosemide to 80 mg 3 days per week including today 40 mg all other days * Telephone Encounter - Sue Stoll LPN - 07/03/2018 11:29 AM EDT Pt calling states that her weight Tuesday06/30/18 347 and they it fluctuated between 343 and 347 over the weekend being 346 this morning. * Telephone Encounter - Reymundo Barton OSA - 07/03/2018 11:26 AM EDT Reason for patient's call: medical update -fluid levels Caller was transferred to [facility] at the dedicated phone nurse line. in this encounter Plan of Treatment Upcoming Encounters Date Type Specialty Care Team Description 07/13/2018 Pharmacy Pharmacy Sp, [facility] [address] [facility] [address] [phone] 07/13/2018 Office Visit Nephrology Gia White MD [address] [facility] [place] [id number] 07/21/2018 Office Visit Cardiology Marjorie Powell PA-C [address] [facility] [place] [address] [phone] 08/01/2018 Office Visit Family Medicine Kevin Whiteside, [address] [facility] [place] [address] [phone] 08/29/2018 Office Visit Gastroenterology Migdalia Jacobs, DO [address] [facility], [place] [phone] 05/04/2019 Office Visit Sleep Disorders Celsa Tafoya CRNP [address] [facility] [place] [address] [phone] Health Maintenance Due Date Last Done Comments DIABETES-EYE EXAM 02/24/2011 02/24/2010 (Do ne elsewhere), 12/18/2009, 02/18/2008 (Done elsewhere) PAP SMEAR-EVERY 3 YRS,AGES 21-65 05/11/2016 05/11/2013, 03/01/2008, 10/19/2006, Additional history exists DIABETES-HGBA1C EVERY 6 MONTHS 11/01/2018 05/01/2018, 12/29/2017, 07/14/2017, Additional history exists CKD GFR USE SMARTSET 85308 12/26/201806/27, 06/12/2018, 06/05/2018, Additional history exists CKD PHOS USE SMARTSET 04411 12/29/2018 12/29/2017, 08/26/2009, 08/25/2009, Additional history exists DIABETES-FOOT EXAM 12/29/2018 12/29/2017, 0 10/21/2016, 12/11/2015, Additional history exists Yearly B-12 05/16/2019 05/16/2018 CKD HGB USE SMARTSET 85639 06/05/201906/05, 12/26/2017, 05/21/2017, Additional history exists BREAST [...]
--- OUTSIDE RECORDS SUMMARY | 2023-06-01 06:00 | External Medical Summary | Summary of Care ---
Author Name Unknown Organization [place] [address] Phone Care Team Providers Care House Principal Name Role Phone Kevin Whiteside Primary Care Provider Reason for Visit * Reason Comments case management Encounter Details Date Type Department Care Team Description 06/30/2018 Telephone Internal Medicine [address] [address] Frances Nicholson RN [address] [place] [address] case management Allergies Active Allergy Reactions [...] Active insulin glargine (INSULIN GLARGINE) 100 UNIT/ML SOPNIndications:Typ e 2 diabetes mellitus with hemoglobin A1c goal of 7.0%-8.0% ([facility]) Inject 66 Units under the skin 2 times a day. Titrate by 2 units until SBGM <150 2 Pre-filled Pen Syringe Dosing Unit 11 05/24/2017 Active clonazePAM (KLONOPIN) 0.5 MG TabletIndications:A nxiety [...] TBEC 06/10/2018 Active lisinopril (PRINIVIL) 10 MG TabletIndications:H TN, goal below 140/80,Acute diastolic congestive heart failure (HCC),Body mass index (BMI) of 50.0 to 59.9 in adult ([facility]),Hypoxemia,ELISSA (obstructive sleep apnea),HTN, goal below 130/80 Take 0.5 Tabs by mouth daily. 50 Tab 3 06/23/2018 Active metoprolol tartrate (LOPRESSOR) 25 MG TabletIndications:H TN, goal below 130/80,Acute diastolic congestive heart failure ([facility]),Body mass index (BMI) of 50.0 [...] MG TabletIndications:A cute diastolic congestive heart failure ([facility]) Take 1 Tab by mouth daily. Take 1 extra tab today, Tuesday and Tuesday, then return to 1 tablet daily 35 Tab 5 06/30/2018 Active furosemide (LASIX) 40 MG Tablet 06/10/2018 8 Discontinued as of this encounter Active Problems Problem Noted Date Acute diastolic congestive heart failure ([facility]) 06/12/2018 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[facility]) 0 06/12/2018 ELSIE (acute kidney injury) ([facility]) 06/12/20 18 Controlled substance agreement signed Body mass index (BMI) of 50.0 to 59.9 in adult ([facility]) 06/27/2017 Overview: Per Obesity protocol #1 - Per Obesity Taxonomy ICD-10 update of inactive term Uncontrolled type 2 diabetes mellitus with stage 3 chronic kidney disease, with long-term current use of insulin ([facility]) 05/24/2017 Gastroesophageal reflux disease with eso phagitis 03/04/2017 Restless legs syndrome 03/25/2016 Fibromyalgia 02/02/2016 Abnormality of gait 02/02/2016 Type 2 diabetes mellitus with hemoglobin A1c goal of 7.0%-8.0% ([facility]) 10/14/2014 Overview: ICD-10 update of [...] index (BMI) of 40.0-44.9 in adult ([facility] ) 08/17/2010 05/24/2017 Obesity, morbid (more than 1 00 lbs over ideal weight or BMI > 40) ([facility]) 12/23/2009 06/30/2017 Overview: Per Obesity Taxonomy ICD-10 update of inactive term HTN, GOAL BELOW 130/80 10/22/2009 2 Overview: Per HTN Taxonomy. Pneumonia in aspergillosis ([facility]) 09/14/2009 02/15/2017 Venous thrombosis 09/14/2009 10/15/2010 Respiratory failure, acute ([facility]) 09/14/2009 02/15/2017 Spontaneous pneumothorax 09/14/2009 017 Dysuria 08/23/2009 02/15/2017 History of heparin-induced thrombocytopenia 07/2806/12/2018 Type 2 diabetes mellitus wit h hemoglobin A1c goal of less than 7.0% ([facility]) 07/10/2009 10/14/2014 Overview: Modified per [...] Telephone Encounter - Frances Nicholson RN - 06/30/2018 5:19 PM EDT Call placed to pt's phone number listed in [facility]. No answer, left message for return call on Frances Nicholson RN, [facility] Back Line Cook [phone] in this encounter Plan of Treatment Upcoming Encounters Date Type Specialty Care Team Description 07/03/2018 Pharmacy Pharmacy Sp, [facility] [address] [facility] [place] [address] [phone] 07/13/2018 [facility] [place] [address] [phone] 07/13/2018 Office Visit Nephrology [facility]ia [facility] [place] [phone] 07/21/2018 Office Visit Cardiology Marjorie Powell PA-C [address] [facility] [place] [address] [phone] 08/01/2018 Office Visit Family Medicine Kevin Whiteside DO [address] [place] [address] [phone] 08/29/2018 Office Visit Gastroenterology Migdalia Jacobs, DO [address] [facility] [address] [phone] 05/04/2019 Office Visit Sleep Disorders Celsa Tafoya CRNP [address] [facility] [place] [address] [phone] Health Maintenance Due Date Last Done Comments DIABETES-EYE EXAM 02/24/2011 02/24/2010 (Do ne elsewhere), 12/18/2009, 02/18/2008 (Done elsewhere) PAP SMEAR-EVERY 3 YRS,AGES 21-65 05/11/2016 05/11/2013, 03/01/2008, 10/19/2006, Additional history exists DIABETES-HGBA1C EVERY 6 MONTHS 11/01/2018 05/01/2018, 12/29/2017, 07/14/2017, Additional history exists CKD GFR USE SMARTSET 97400 12/26/201806/27, 06/12/2018, 06/05/2018, Additional history exists CKD PHOS USE SMARTSET 23775 12/29/2018 12/29/2017, 08/26/2009, 08/25/2009, Additional history exists DIABETES-FOOT EXAM 12/29/2018 12/29/2017, 0 10/21/2016, 12/11/2015, Additional history exists Yearly B-12 05/16/2019 05/16/2018 CKD HGB USE SMARTSET 88471 06/05/201906/05, 12/26/2017, 05/21/2017, Additional history exists BREAST [...]
--- OUTSIDE RECORDS SUMMARY | 2023-06-01 06:00 | External Medical Summary | Summary of Care ---
Author Name Unknown Organization [place] [address] Phone Care Team Providers Care Driver Lifter Of Sanitation Truck Name Role Phone Kevin Whiteside Primary Care Provider Encounter Details Date Type Department Care Team Description 07/04/2018 Cook House SupervisorBeveling And Edging Machine Operator Medicine [address] [address] Frances Nicholson RN [address] [place] [address] Acute diastolic congestive heart failure (HCC)*;Uncontrolled type 2 diabetes mellitus with stage 3 [...] congestive heart failure (HCC) 06/12/2018 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[facility]) 0 06/12/2018 ELSIE (acute kidney injury) ([facility]) 06/12/20 18 Controlled substance agreement signed Body mass index (BMI) of 50.0 to 59.9 in adult ([facility]) 06/27/2017 Overview: Per Obesity protocol #1 - Per Obesity Taxonomy ICD-10 update of inactive term Uncontrolled type 2 diabetes mellitus with stage 3 chronic kidney disease, with long-term current use of insulin ([facility]) 05/24/2017 Gastroesophageal reflux disease with eso phagitis 03/04/2017 Restless legs syndrome 03/25/2016 Fibromyalgia 02/02/2016 Abnormality of gait 02/02/2016 Type 2 diabetes mellitus with hemoglobin A1c goal of 7.0%-8.0% ([facility]) 10/14/2014 Overview: ICD-10 update of inactive [...] (BMI) of 40.0-44.9 in adult ([facility] ) 08/17/2010 05/24/2017 Obesity, morbid (more than 1 00 lbs over ideal weight or BMI > 40) ([facility]) 12/23/2009 06/30/2017 Overview: Per Obesity Taxonomy ICD-10 update of inactive term HTN, GOAL BELOW 130/80 10/22/2009 2 Overview: Per HTN Taxonomy. Pneumonia in aspergillosis ([facility]) 09/14/2009 02/15/2017 Venous thrombosis 09/14/2009 10/15/2010 Respiratory failure, acute ([facility]) 09/14/2009 02/15/2017 Spontaneous pneumothorax 09/14/2009 017 Dysuria 08/23/2009 02/15/2017 History of heparin-induced thrombocytopenia 07/2806/12/2018 Type 2 diabetes mellitus wit h hemoglobin A1c goal of less than 7.0% ([facility]) 07/10/2009 10/14/2014 Overview: Modified per Diabetes [...] Progress Notes * Frances Nicholson RN - 07/04/2018 11:48 AM EDT PMH: DM, HTN, SOA with CPAP, history of PE, frank filter in place, dyslipidemia-statin intol, GERD, Fibromyalgia, depression/anxiety New-acute diastolic HF and ELSIE sent from PCP office abnormal labs and shortness of breath. x-ray concerning for atypical pneumonia 06/06/18-[facility] admit Acute respiratory failure with hypoxia and [...] weight 343 on d/c 06/10/18 d/c from [facility] new on Lasix, potassium and Mg Stopped Metformin and HCTZ Case Management Assessment/NEW ASSESSMENT ROSA wk 3 Is this call for a hospital, long-term or rehab facility discharge to home? Yes [facility] S: Reports: reports that she had some SOB and her weight went up last week. Says she was SOB at herappt with wt management and she contacted cardiology and her fluid pill was increased, takes extra on Tue-Tue and Tue. Has been helpful. BS are still up, but MTM has been working with her and she is starting Tresiba Reports that weight today is down 2 lbs from Tuesday Increased edema: reports that she has some lower leg edema, but less than Tuesday Chest pain denies Increased shortness of breath: admits that she was having increased SOB late last week, improved with extra Lasix cough denies dyspnea with daily activities oxygen Has home O2, Uses HS with C-PAP conserving device (C-PAP / BiPAP) Chills / Sweats / Fever: denies chills/sweats and denies fever Fall: denies any falls since last Care Management encounter Appetite: denies nausea, vomiting, burning, decreased appetite Bowel: denies problems Bladder: denies problems Medications: Lasix was increased on . New on Tresiba Chronic Pain: ongoing chronic pain-managed with Gabapentin Does Patient have Type 2 DM ? [...] mg/dL? Never O: Phone visit for ROSA wk 3/NEW ASSESSMENT. Medications: takes all medications as prescribed. A: Patient Centered Prioritized Goals: Pt will continue with daily weights and verbalize s/s of HF needing reported to Dr/CM Development of self - management action plan [...] to communicate, understand instructions, process information. P: Cook House Supervisor Interventions: declined [facility] scale Reinforce Self Management Action Plan established at [...] vertigo Reinforced safety education / fall prevention encouged to avoid concentrated sweets-diet per GI nutrition. Instructed to report unmanaged BS to [facility] PCP Notified of enrollment in CM/HM program: Yes SNP Member? No Re-evaluation of plan of care and progress towards goals achievement:Pt did report increased weight/SOB to cardiology and Lasix increased Plan to call patient again this week to reassess and update plan of care, instructed to call Cook House Supervisor or Primary Care Provider with change in symptoms or as needed before next follow-up, verbalizes understanding and agrees with plan. Frances Nicholson RN Outpatient Cook House Supervisor in this encounter Plan of Treatment Upcoming Encounters Date Type Specialty Care Team Description 07/13/2018 Pharmacy Pharmacy Sp, [facility] [address] [facility] [place] [place] [address] [phone] 07/13/2018 Office Visit Nephrology Gia White MD [address] [place] [address] [phone] 07/21/2018 Office Visit Cardiology Marjorie Powell PA-C [address] [place] [address] [phone] 08/01/2018 Office Visit Family Medicine Kevin Whiteside, [address] [place] [address] [phone] 08/29/2018 Office Visit Gastroenterology Migdalia Jacobs, DO [address] [facility] [place] [phone] 05/04/2019 Office Visit Sleep Disorders Celsa Tafoya, TATIANA [address] [place] [address] [phone] Health Maintenance Due Date Last Done Comments DIABETES-EYE EXAM 02/24/2011 02/24/2010 (Do ne elsewhere), 12/18/2009, 02/18/2008 (Done elsewhere) PAP SMEAR-EVERY 3 YRS,AGES 21-65 05/11/2016 05/11/2013, 03/01/2008, 10/19/2006, Additional history exists DIABETES-HGBA1C EVERY 6 MONTHS 11/01/2018 05/01/2018, 12/29/2017, 07/14/2017, Additional history exists CKD GFR USE SMARTSET 92445 12/26/201806/27, 06/12/2018, 06/05/2018, Additional history exists CKD PHOS USE SMARTSET 08867 12/29/2018 12/29/2017, 08/26/2009, 08/25/2009, Additional history exists DIABETES-FOOT EXAM 12/29/2018 12/29/2017, 0 10/21/2016, 12/11/2015, Additional history exists Yearly B-12 05/16/2019 05/16/2018 CKD HGB USE SMARTSET 68567 06/05/201906/05, 12/26/2017, 05/21/2017, Additional history exists BREAST [...] encounter Visit Diagnoses Diagnosis Acute diastolic congestive h eart failure (HCC) - Primary Acute diastolic heart failure Uncontrolled type 2 diabetes mellitus with stage 3 chronic kidney disease, with long-term current use of insulin (HCC) in this encounter
--- OUTSIDE RECORDS SUMMARY | 2023-06-01 06:00 | External Medical Summary | Summary of Care ---
Author Name Unknown Organization [place] [address] Phone Care Team Providers Care Supervisor [employer] Name Role Phone Kevin Whiteside Primary Care Provider Reason for Visit * Reason Comments ADVICE Fluid Level Update Encounter Details Date Type Department Care Team Description 07/03/2018 Telephone Cardiology, [facility] [address] Rey Woodall MD 132 [place] [address] ADVICE (Fluid Level Update) Allergies Active [...] 50.0 to 59.9 in adult ([facility]),Hypoxemia,ELISSA (obstructive sleep apnea),HTN, goal below [...] days 35 Tab 5 07/03/2018 Active insulin glargine (INSULIN GLARGINE) 100 UNIT/ML SOPNIndications:Typ e 2 diabetes mellitus with hemoglobin A1c goal of 7.0%-8.0% ([facility]) Inject 66 Units under the skin 2 times a day. Titrate by 2 units until SBGM <150 2 Pre-filled Pen Syringe Dosing Unit 11 05/24/2017 8 Discontinued furosemide (LASIX) 40 MG TabletIndications:A cute diastolic congestive heart failure (HCC) Take 1 Tab by mouth daily. Take 1 extra tab today, Tuesday and Tuesday, then return to 1 tablet daily 35 Tab 5 06/30/2018 8 Discontinued as of this encounter Active Problems Problem Noted Date Acute diastolic congestive heart failure (HCC) 06/12/2018 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[facility]) 0 06/12/2018 ELSIE (acute kidney injury) ([facility]) 06/12/20 18 Controlled substance agreement signed Body mass index (BMI) of 50.0 to 59.9 in adult ([facility]) 06/27/2017 Overview: Per Obesity protocol #1 - Per Obesity Taxonomy ICD-10 update of inactive term Uncontrolled type 2 diabetes mellitus with stage 3 chronic kidney disease, with long-term current use of insulin ([facility]) 05/24/2017 Gastroesophageal reflux disease with eso phagitis 03/04/2017 Restless legs syndrome 03/25/2016 Fibromyalgia 02/02/2016 Abnormality of gait 02/02/2016 Type 2 diabetes mellitus with hemoglobin A1c goal of 7.0%-8.0% ([facility]) 10/14/2014 Overview: ICD-10 update of inactive term [place] filter in place 08/19/2014 History of [...] (BMI) of 40.0-44.9 in adult ([facility] ) 08/17/2010 05/24/2017 Obesity, morbid (more than 1 00 lbs over ideal weight or BMI > 40) ([facility]) 12/23/2009 06/30/2017 Overview: Per Obesity Taxonomy ICD-10 update of inactive term HTN, GOAL BELOW 130/80 10/22/2009 2 Overview: Per HTN Taxonomy. Pneumonia in aspergillosis ([facility]) 09/14/2009 02/15/2017 Venous thrombosis 09/14/2009 10/15/2010 Respiratory failure, acute ([facility]) 09/14/2009 02/15/2017 Spontaneous pneumothorax 09/14/2009 017 Dysuria 08/23/2009 02/15/2017 History of heparin-induced thrombocytopenia 07/2806/12/2018 Type 2 diabetes mellitus wit h hemoglobin A1c goal of less than 7.0% ([facility]) 07/10/2009 10/14/2014 Overview: Modified per Diabetes protocol #14. ICD-10 update of inactive term Dyslipidemia, goal LDL below 160 08/16/2007 09/04/2009 Overview: Per Lipid Taxonomy. HTN, goal below 140/90 04/09/2003 0 Overview: Per HTN Taxonomy. DM type 2, not at goal ([facility]) 05/29/2002 Overview: Modified per Diabetes protocol #14. TENOSYNOVITIS FOOT-ANKLE 12/26/2001 017 Goiter 01/13/2000 06/28/2011 BACKACHE NOS 08/26/1999 05/24/2017 OBESITY, UNSPECIFIED 08/26/1999 12/23/2009 Overview: Per Obesity Taxonomy Perforation of intestine ([facility]) 0 02/15/2017 Overview: COLON Diverticulitis [...] encounter Miscellaneous Notes * Addendum Note - Tasha Cuadra RN - 07/03/2018 4:23 PM EDT Addended by: TASHA CUADRA on: 07/03/2018 04:23 PM Modules accepted: Orders * Telephone Encounter - Tasha Cuadra RN - 07/03/2018 4:23 PM EDT Called, spoke with patient. Patient verbalizing understanding of given results/instruction per message below and will comply. * Telephone Encounter - Rey Woodall MD - 07/03/2018 12:39 PM EDT Change furosemide to 80 mg 3 days per week including today 40 mg all other days * Telephone Encounter - StollSue LPN - 07/03/2018 11:29 AM EDT Pt calling states that her weight Tuesday06/30/18 347 and they it fluctuated between 343 and 347 over the weekend being 346 this morning. * Telephone Encounter - MickNormanReymundoELISSA - 07/03/2018 11:26 AM EDT Reason for patient's call: medical update -fluid levels Caller was transferred to [facility] at the dedicated phone nurse line. in this encounter Plan of Treatment Upcoming Encounters Date Type Specialty Care Team Description 07/13/2018 Pharmacy Pharmacy Sp, [facility] [address] [facility] [address] [phone] 07/13/2018 Office Visit Nephrology Gia White MD 21 [facility] [place] [address] [phone] 07/21/2018 Office Visit Cardiology Marjorie Powell PA-C 132 [facility] [place] [address] [phone] 08/01/2018 Office Visit Family Medicine Kevin Whiteside DO [address] [facility] [place] [address] [phone] 08/29/2018 Office Visit Gastroenterology Migdalia Jacobs DO [address] [facility] [place] [address] 05/04/2019 Office Visit Sleep Disorders Celsa Tafoya CRNP 132 [facility] [place] [address] [phone] Health Maintenance Due Date Last Done Comments DIABETES-EYE EXAM 02/24/2011 02/24/2010 (Do ne elsewhere), 12/18/2009, 02/18/2008 (Done elsewhere) PAP SMEAR-EVERY 3 YRS,AGES 21-65 05/11/2016 05/11/2013, 03/01/2008, 10/19/2006, Additional history exists DIABETES-HGBA1C EVERY 6 MONTHS 11/01/2018 05/01/2018, 12/29/2017, 07/14/2017, Additional history exists CKD GFR USE SMARTSET 28055 12/26/201806/27, 06/12/2018, 06/05/2018, Additional history exists CKD PHOS USE SMARTSET 36308 12/29/2018 12/29/2017, 08/26/2009, 08/25/2009, Additional history exists DIABETES-FOOT EXAM 12/29/2018 12/29/2017, 0 10/21/2016, 12/11/2015, Additional history exists Yearly B-12 05/16/2019 05/16/2018 CKD HGB USE SMARTSET 66596 06/05/201906/05, 12/26/2017, 05/21/2017, Additional history exists BREAST [...] Acute diastolic congestive h eart failure (HCC) Acute diastolic heart failure in this encounter
--- OUTSIDE RECORDS SUMMARY | 2023-06-01 06:00 | External Medical Summary | Summary of Care ---
Author Name Unknown [place] [address] Phone Care Team Providers Care Fur Vault Attendant Name Role Phone Kevin Whiteside Primary Care Provider Reason for Visit * Reason Comments Dosage Adjustment Via Phone (anticoag Cl inic) DIABETES FOLLOW-UP Encounter Details Date Type Department Care Team Description 07/03/2018 Pharmacy Pharmacy, [facility] [address] [facility] [place] [address] Sp, [facility] [address] [phone] Uncontrolled type 2 diabetes mellitus with stage 3 chronic kidney disease, with long-term current use of insulin ([facility])*;Type 2 diabetes mellitus with hemoglobin A1c goal of 7.0%-8.0% ([facility]) Allergies Active Allergy Reactions Severity Noted [...] tablet daily 35 Tab 5 06/30/2018 Active Insulin Degludec (TRESIBA FLEXTOUCH) 200 UNIT/ML SOPN Inject up to 160 units daily as directed 1 Box Dosing Unit 5 07/03/2018 Active insulin glargine (INSULIN GLARGINE) 100 UNIT/ML SOPNIndications:Typ e 2 diabetes mellitus with hemoglobin A1c goal of 7.0%-8.0% ([facility]) Inject 66 Units under the skin 2 times a day. Titrate by 2 units until SBGM <150 2 Pre-filled Pen Syringe Dosing Unit 11 05/24/2017 8 Discontinued as of this encounter Active Problems Problem Noted Date Acute diastolic congestive heart failure (HCC) 06/12/2018 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[facility]) 0 06/12/2018 ELSIE (acute kidney injury) ([facility]) 06/12/20 18 Controlled substance agreement signed Body mass index (BMI) of 50.0 to 59.9 in adult ([facility]) 06/27/2017 Overview: Per Obesity protocol #1 - Per Obesity Taxonomy ICD-10 update of inactive term Uncontrolled type 2 diabetes mellitus with stage 3 chronic kidney disease, with long-term current use of insulin ([facility]) 05/24/2017 Gastroesophageal reflux disease with eso phagitis 03/04/2017 Restless legs syndrome 03/25/2016 Fibromyalgia 02/02/2016 Abnormality of gait 02/02/2016 Type 2 diabetes mellitus with hemoglobin A1c goal of 7.0%-8.0% ([facility]) 10/14/2014 Overview: ICD-10 update of inactive [...] mass index (BMI) of 40.0-44.9 in adult ([facility] ) 08/17/2010 05/24/2017 Obesity, morbid (more than 1 00 lbs over ideal weight or BMI > 40) ([facility]) 12/23/2009 06/30/2017 Overview: Per Obesity Taxonomy ICD-10 update of inactive term HTN, GOAL BELOW 130/80 10/22/2009 2 Overview: Per HTN Taxonomy. Pneumonia in aspergillosis ([facility]) 09/14/2009 02/15/2017 Venous thrombosis 09/14/2009 10/15/2010 Respiratory failure, acute ([facility]) 09/14/2009 02/15/2017 Spontaneous pneumothorax 09/14/2009 017 Dysuria 08/23/2009 02/15/2017 History of heparin-induced thrombocytopenia 07/2806/12/2018 Type 2 diabetes mellitus wit h hemoglobin A1c goal of less than 7.0% ([facility]) 07/10/2009 10/14/2014 Overview: Modified per Diabetes protocol #14. ICD-10 update of inactive term Dyslipidemia, goal LDL below 160 08/16/2007 09/04/2009 Overview: Per Lipid Taxonomy. HTN, goal below 140/90 04/09/2003 0 Overview: Per HTN Taxonomy. DM type 2, not at goal ([facility]) 05/29/2002 Overview: Modified per Diabetes protocol #14. TENOSYNOVITIS FOOT-ANKLE 12/26/2001 017 Goiter 01/13/2000 06/28/2011 BACKACHE NOS 08/26/1999 05/24/2017 OBESITY, UNSPECIFIED 08/26/1999 12/23/2009 Overview: Per Obesity Taxonomy Perforation of intestine ([facility]) 0 02/15/2017 Overview: COLON Diverticulitis as [...] this encounter Progress Notes * Frances Ellis, [facility] - 07/03/2018 1:42 PM EDT Formatting of this note may be different from the original. Diabetes telephone follow - up 07/03/2018 Patient Phone Numbers - Reason for call: Out of lantus and to discuss BGs. - Current diabetic medications: Increase Lantus/basaglar - 70 units twice daily (plan to switch to Tresiba when supply runs out) Victoza 1.8 mg daily Novolog 15 units with breakfast, 10 units lunch, 18 units at dinner + CF 1:40 over 120 (tighten) - Glucose review/ SMBG: Patient reports BGs in mid 200's Hypoglycemia: none. Therapy Management Assessment/Plan: 1) Diabetes: Switch to Tresiba 124 units daily TODAY Victoza 1.8 mg daily Novolog 15 units with breakfast, 10 units lunch, 18 units at dinner + CF 1:40 over 120 (tighten) Follow up in 3 days. Frances Duong, Pharm D, BCACP Clinical Pharmacist Medication [facility] 07/03/2018, 1:42 PM * Gina Castaneda OSA - 07/03/2018 10:22 AM EDT Formatting of this note may be different from the original. Patient Phone Numbers Patient calling to discuss new insulin. She's out of Lantus. Having high BS in this encounter Plan of Treatment Upcoming Encounters Date Type Specialty Care Team Description 07/13/2018 Pharmacy Pharmacy , [facility] [address] [phone] 07/13/2018 Office Visit Nephrology Gia White MD [address] [place] [address] [phone] 07/21/2018 Office Visit Cardiology Marjorie Powell PA-C [address] [place] [address] [phone] 08/01/2018 Office Visit Family Medicine Kevin Whiteside DO [address] [place] [address] [phone] 08/29/2018 Office Visit Gastroenterology Migdalia Jacobs, DO [address] [facility] [place] [address] 05/04/2019 Office Visit Sleep Disorders Celsa Tafoya CRNP [address] [place] [address] [phone] Health Maintenance Due Date Last Done Comments DIABETES-EYE EXAM 02/24/2011 02/24/2010 (Do ne elsewhere), 12/18/2009, 02/18/2008 (Done elsewhere) PAP SMEAR-EVERY 3 YRS,AGES 21-65 05/11/2016 05/11/2013, 03/01/2008, 10/19/2006, Additional history exists DIABETES-HGBA1C EVERY 6 MONTHS 11/01/2018 05/01/2018, 12/29/2017, 07/14/2017, Additional history exists CKD GFR USE SMARTSET 68968 12/26/201806/27, 06/12/2018, 06/05/2018, Additional history exists CKD PHOS USE SMARTSET 48424 12/29/2018 12/29/2017, 08/26/2009, 08/25/2009, Additional history exists DIABETES-FOOT EXAM 12/29/2018 12/29/2017, 0 10/21/2016, 12/11/2015, Additional history exists Yearly B-12 05/16/2019 05/16/2018 CKD HGB USE SMARTSET 67562 06/05/201906/05, 12/26/2017, 05/21/2017, Additional history exists BREAST [...] wit h hemoglobin A1c goal of 7.0%-8.0% ([facility]) in this encounter
--- OUTSIDE RECORDS SUMMARY | 2023-06-01 06:00 | External Medical Summary | Summary of Care ---
Author Name Unknown Organization [place] [address] Phone Care Team Providers Care Secretary To Board [employer] Commissioners Name Role Phone Kevin Whiteside Primary Care Provider Reason for Visit * Reason Comments case management Encounter Details Date Type Department Care Team Description 07/07/2018 Telephone Internal Medicine [address] [address] Frances Nicholson RN [address] [place] [address] case management Allergies Active Allergy Reactions [...] failure (HCC) 06/12/2018 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[facility]) 0 06/12/2018 ELSIE (acute kidney injury) ([facility]) 06/12/20 18 Controlled substance agreement signed Body mass index (BMI) of 50.0 to 59.9 in adult ([facility]) 06/27/2017 Overview: Per Obesity protocol #1 - Per Obesity Taxonomy ICD-10 update of inactive term Uncontrolled type 2 diabetes mellitus with stage 3 chronic kidney disease, with long-term current use of insulin ([facility]) 05/24/2017 Gastroesophageal reflux disease with eso phagitis 03/04/2017 Restless legs syndrome 03/25/2016 Fibromyalgia 02/02/2016 Abnormality of gait 02/02/2016 Type 2 diabetes mellitus with hemoglobin A1c goal of 7.0%-8.0% ([facility]) 10/14/2014 Overview: ICD-10 update of inactive term [place] filter in place 08/19/2014 History of pulmonary embolus (PE) 2013 Statin intolerance 07/16/2014 HTN, goal below 130/80 02/22/2014 Venous insufficiency 02/07/2013 ELISSA (obstructive sleep apnea) 09/16/2011 Overview: CPAP 11 cwp Mild, AHI 11.3 but with significant nocturnal hypoxemia Dicks Hypoxemia 07/22/2011 Overview: Nocturnal ox 2 LPM 07/20/11 -- mean 84%, low 76%, time <89% 6:21 hours, TINY [facility] Postsurgical hypothyroidism 06/16/2011 Depression with anxiety 09/13/2009 [...] (BMI) of 40.0-44.9 in adult ([facility] ) 08/17/2010 05/24/2017 Obesity, morbid (more than 1 00 lbs over ideal weight or BMI > 40) ([facility]) 12/23/2009 06/30/2017 Overview: Per Obesity Taxonomy ICD-10 update of inactive term HTN, GOAL BELOW 130/80 10/22/2009 2 Overview: Per HTN Taxonomy. Pneumonia in aspergillosis ([facility]) 09/14/2009 02/15/2017 Venous thrombosis 09/14/2009 10/15/2010 Respiratory failure, acute ([facility]) 09/14/2009 02/15/2017 Spontaneous pneumothorax 09/14/2009 017 Dysuria 08/23/2009 02/15/2017 History of heparin-induced thrombocytopenia 07/2806/12/2018 Type 2 diabetes mellitus wit h hemoglobin A1c goal of less than 7.0% ([facility]) 07/10/2009 10/14/2014 Overview: Modified per Diabetes protocol #14. ICD-10 update of inactive term Dyslipidemia, goal LDL below 160 08/16/2007 09/04/2009 Overview: Per Lipid Taxonomy. HTN, goal below 140/90 04/09/2003 0 Overview: Per HTN Taxonomy. DM type 2, not at goal ([facility]) 05/29/2002 Overview: Modified per Diabetes protocol [...] Telephone Encounter - Frances Nicholson RN - 07/07/2018 3:57 PM EDT PMH: DM, HTN, SOA with CPAP, history of PE, [place] filter in place, dyslipidemia-statin intol, GERD, Fibromyalgia, depression/anxiety New-acute diastolic HF and ELSIE sent from PCP office abnormal labs and shortness of breath. x-ray concerning for atypical pneumonia 06/06/18-[facility] admit Acute respiratory failure with hypoxia and [...] weight 343 on d/c 06/10/18 d/c from [facility] new on Lasix, potassium and Mg Stopped Metformin and HCTZ ROSA wk 3 Spoke with pt She reports that her breathing is much better with the increased Lasix. Less swelling. Started Tresiba last week, but BS still going up into the 400s. Says that she spoke with the [facility] pharmacist and the Tresiba was increased. [place] to call next week Weight 344 Denies chest pain Denies increased SOB-remains SOB with exertion, but improved since increase of Lasix Denies increased edema Denies N/V or decreased intake Denies diff with bowels or bladder Denies unmanaged pain-ongoing neuropathy-using Gabapentin Reinforced HF [...] -increased fatigue or vertigo Discussed elevated BS and to eat high protein snacks if need snack-try and stay under 100 nilda, consider hard boiled egg, or yogurt or sting cheese Avoid concentrated sweets Stressed safety/fall precautions Call next week Frances Nicholson, biztalk software developer [phone] in this encounter Plan of Treatment Upcoming Encounters Date Type Specialty Care Team Description 07/13/2018 Pharmacy Pharmacy , [facility] [address] [place] [address] [phone] 07/13/2018 Office Visit Nephrology Gia White MD [address] [place] [address] 07/21/2018 Office Visit Cardiology Marjorie Powell PA-C [address] [place] [address] [phone] 08/01/2018 Office Visit Family Medicine Kevin Whiteside DO [address] [place] [address] [phone] 08/29/2018 Office Visit Gastroenterology Migdalia Jacobs, DO [address] [facility] [place] [address] 05/04/2019 Office Visit Sleep Disorders Celsa Tafoya CRNP [address] [place] [address] [phone] Health Maintenance Due Date Last Done Comments DIABETES-EYE EXAM 02/24/2011 02/24/2010 (Do ne elsewhere), 12/18/2009, 02/18/2008 (Done elsewhere) PAP SMEAR-EVERY 3 YRS,AGES 21-65 05/11/2016 05/11/2013, 03/01/2008, 10/19/2006, Additional history exists DIABETES-HGBA1C EVERY 6 MONTHS 11/01/2018 05/01/2018, 12/29/2017, 07/14/2017, Additional history exists CKD GFR USE SMARTSET 18493 12/26/201806/27, 06/12/2018, 06/05/2018, Additional history exists CKD PHOS USE SMARTSET 09551 12/29/2018 12/29/2017, 08/26/2009, 08/25/2009, Additional history exists DIABETES-FOOT EXAM 12/29/2018 12/29/2017, 0 10/21/2016, 12/11/2015, Additional history exists Yearly B-12 05/16/2019 05/16/2018 CKD HGB USE SMARTSET 60763 06/05/201906/05, 12/26/2017, 05/21/2017, Additional history exists BREAST [...]
--- OUTSIDE RECORDS SUMMARY | 2023-06-01 06:00 | External Medical Summary | Summary of Care ---
Author Name Unknown Organization [place] [address] Phone Care Team Providers Care Title Closer Name Role Phone Kevin Whiteside DO Primary Care Provider Reason for Visit * Reason Comments MED REQUEST Encounter Details Date Type Department Care Team Description 07/03/2018 Telephone Family Practice [facility] [address] [facility] [address] Kevin Whiteside DO [address] [facility] [address] MED REQUEST Allergies Active Allergy Reactions Severity Noted Date [...] Dosing Unit 5 06/27/2018 Active Glucose Blood ([employer] BLUE) STRP Check sugars four times daily as directed 100 Strip 5 06/27/2018 Active as of this encounter Active Problems Problem Noted Date Acute diastolic congestive heart failure ([facility]) 06/12/2018 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[facility]) 0 06/12/2018 ELSIE (acute kidney injury) ([facility]) 06/12/20 18 Controlled substance agreement signed Body mass index (BMI) of 50.0 to 59.9 in adult ([facility]) 06/27/2017 Overview: Per Obesity protocol #1 - Per Obesity Taxonomy ICD-10 update of inactive term Uncontrolled type 2 diabetes mellitus with stage 3 chronic kidney disease, with long-term current use of insulin ([facility]) 05/24/2017 Gastroesophageal reflux disease with eso phagitis 03/04/2017 Restless legs syndrome 03/25/2016 Fibromyalgia 02/02/2016 Abnormality of gait 02/02/2016 Type 2 diabetes mellitus with hemoglobin A1c goal of 7.0%-8.0% ([facility]) 10/14/2014 Overview: ICD-10 update of inactive term [...] index (BMI) of 40.0-44.9 in adult ([facility] ) 08/17/2010 05/24/2017 Obesity, morbid (more than 1 00 lbs over ideal weight or BMI > 40) ([facility]) 12/23/2009 06/30/2017 Overview: Per Obesity Taxonomy ICD-10 update of inactive term HTN, GOAL BELOW 130/80 10/22/2009 2 Overview: Per HTN Taxonomy. Pneumonia in aspergillosis ([facility]) 09/14/2009 02/15/2017 Venous thrombosis 09/14/2009 10/15/2010 Respiratory failure, acute ([facility]) 09/14/2009 02/15/2017 Spontaneous pneumothorax 09/14/2009 017 Dysuria 08/23/2009 02/15/2017 History of heparin-induced thrombocytopenia 07/2806/12/2018 Type 2 diabetes mellitus wit h hemoglobin A1c goal of less than 7.0% ([facility]) 07/10/2009 10/14/2014 Overview: Modified per Diabetes protocol #14. ICD-10 update of inactive term Dyslipidemia, goal LDL below 160 08/16/2007 09/04/2009 Overview: Per Lipid Taxonomy. HTN, goal below 140/90 04/09/2003 0 Overview: Per HTN Taxonomy. DM type 2, not at goal ([facility]) 05/29/2002 Overview: Modified per Diabetes protocol #14. TENOSYNOVITIS FOOT-ANKLE 12/26/2001 017 Goiter 01/13/2000 06/28/2011 BACKACHE NOS 08/26/1999 05/24/2017 OBESITY, UNSPECIFIED 08/26/1999 12/23/2009 Overview: Per Obesity Taxonomy Perforation of intestine ([facility]) 0 02/15/2017 Overview: COLON Diverticulitis as of [...] encounter Miscellaneous Notes * Telephone Encounter - Mindy Ibarra, needle polisher - 07/03/2018 10:20 AM EDT Per 06/27/18 [facility] clinic encounter patient states she should be on Tresiba. Please advise. Send to [facility] if appropriate. From [facility] Clinic Encounter Notes: "Diabetes Medications: Switch Lantus/basaglar - 66 units twice daily to Tresiba 120 units per day" [facility] Ref[facility] 07/03/2018,10:21 AM in this encounter Plan of Treatment Upcoming Encounters Date Type Specialty Care Team Description 07/13/2018 Pharmacy Pharmacy Sp, [facility] [address] [place] [address] [phone] 07/13/2018 Office Visit Nephrology Gia White MD [address] [place] [address] 07/21/2018 Office Visit Cardiology Marjorie Powell PA-C [address] [place] [address] [phone] 08/01/2018 Office Visit Family Medicine Kevin Whiteside DO [address] [place] [address] [phone] 08/29/2018 Office Visit Gastroenterology Migdalia Jacobs, DO [address] [facility] [place] [address] [phone] 05/04/2019 Office Visit Sleep Disorders Celsa Tafoya CRNP [address] [place] [address] [phone] Health Maintenance Due Date Last Done Comments DIABETES-EYE EXAM 02/24/2011 02/24/2010 (Do ne elsewhere), 12/18/2009, 02/18/2008 (Done elsewhere) PAP SMEAR-EVERY 3 YRS,AGES 21-65 05/11/2016 05/11/2013, 03/01/2008, 10/19/2006, Additional history exists DIABETES-HGBA1C EVERY 6 MONTHS 11/01/2018 05/01/2018, 12/29/2017, 07/14/2017, Additional history exists CKD GFR USE SMARTSET 34318 12/26/201806/27, 06/12/2018, 06/05/2018, Additional history exists CKD PHOS USE SMARTSET 50809 12/29/2018 12/29/2017, 08/26/2009, 08/25/2009, Additional history exists DIABETES-FOOT EXAM 12/29/2018 12/29/2017, 0 10/21/2016, 12/11/2015, Additional history exists Yearly B-12 05/16/2019 05/16/2018 CKD HGB USE SMARTSET 52193 06/05/201906/05, 12/26/2017, 05/21/2017, Additional history exists BREAST [...]
--- OUTSIDE RECORDS SUMMARY | 2023-06-01 06:00 | External Medical Summary | Summary of Care ---
Author Name Unknown Organization [place] [address] Phone Care Team Providers Care Roundsman Name Role Phone Kevin Whiteside Primary Care Provider Reason for Visit * Reason Comments case management Encounter Details Date Type Department Care Team Description 07/07/2018 Telephone Internal Medicine [address] [address] Frances Nicholson RN [address] [place] [id number] case management Allergies Active Allergy Reactions [...] congestive heart failure (HCC) 06/12/2018 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[facility]) 0 06/12/2018 ELSIE (acute kidney injury) ([facility] [...] 10/14/2014 Overview: ICD-10 update of inactive term [place] filter in place 08/19/2014 History of pulmonary embolus (PE) 2013 Statin intolerance 07/16/2014 HTN, goal below 130/80 02/22/2014 Venous insufficiency 02/07/2013 ELISSA (obstructive sleep apnea) 09/16/2011 Overview: CPAP 11 cwp Mild, AHI 11.3 but with significant nocturnal hypoxemia Dicks Hypoxemia 07/22/2011 Overview: Nocturnal ox 2 LPM 07/20/11 -- mean 84%, low 76%, time <89% 6:21 hours, TINY [facility] Postsurgical hypothyroidism 06/16/2011 Depression with anxiety [...] Encounter - Frances Nicholson RN - 07/07/2018 2:39 PM EDT Call placed to pt's phone number listed in [facility]. No answer, left message for return call on Frances Nicholson RN, [facility] Medical Scientific Officer [phone] in this encounter Plan of Treatment Upcoming Encounters Date Type Specialty Care Team Description 07/13/2018 [facility] [address] 07/13/2018 [facility] [address] [facility] [place] [address] 07/21/2018 Office Visit Cardiology Marjorie Powell PA-C [address] [place] [address] [phone] 08/01/2018 Office Visit Family Medicine Kevin Whiteside, [address] [place] [address] [phone] 08/29/2018 Office Visit Gastroenterology Migdalia Jacobs, DO [address] [facility] [place] [address] [phone] 05/04/2019 Office Visit Sleep Disorders Celsa Tafoya CRNP [address] [place] [address] [phone] Health Maintenance Due Date Last Done Comments DIABETES-EYE EXAM 02/24/2011 02/24/2010 (Do ne elsewhere), 12/18/2009, 02/18/2008 (Done elsewhere) PAP SMEAR-EVERY 3 YRS,AGES 21-65 05/11/2016 05/11/2013, 03/01/2008, 10/19/2006, Additional history exists DIABETES-HGBA1C EVERY 6 MONTHS 11/01/2018 05/01/2018, 12/29/2017, 07/14/2017, Additional history exists CKD GFR USE SMARTSET 66455 12/26/201806/27, 06/12/2018, 06/05/2018, Additional history exists CKD PHOS USE SMARTSET 06661 12/29/2018 12/29/2017, 08/26/2009, 08/25/2009, Additional history exists DIABETES-FOOT EXAM 12/29/2018 12/29/2017, 0 10/21/2016, 12/11/2015, Additional history exists Yearly B-12 05/16/2019 05/16/2018 CKD HGB USE SMARTSET 05765 06/05/201906/05, 12/26/2017, 05/21/2017, Additional history exists BREAST [...]
--- OUTSIDE RECORDS SUMMARY | 2023-06-01 06:00 | External Medical Summary | Summary of Care ---
Author Name [place] [address] Phone Care Team Providers Care Fraud Manager Name Role Phone Kevin Whiteside Primary Care Provider Reason for Visit * Reason Comments NEW PATIENT Open to all options for weight loss. * Evaluate & Treat - Unlimited Visits (Within 10 days (routine)) Status Reason Specialty Diagnoses / Procedures Referred By Contact Referred To Contact Pending Review Specialty Services Required GI NUTRITION/IM Diagnoses Acute diastolic congestive heart failure (HCC) Body mass index (BMI) of 50.0 to 59.9 in adult (HCC) Hypoxemia ELISSA (obstructive sleep apnea) HTN, goal below 130/80 HTN, goal below 140/80 Rey Woodall MD [address] [facility] [place] [address] Encounter Details Date Type Department Care Team Description 06/30/2018 Office Visit Nutrition & Weight Management, [facility] [address] [place] [address] Migdalia Jacobs DO [address] [place] [address] Abnormal weight gain*;BMI 50.0-59.9, adult (HCC);Type 2 diabetes mellitus with hemoglobin A1c goal of 7.0%-8.0% (HCC);Gastroesophageal reflux disease with esophagitis;Depression with anxiety;Postsurgical hypothyroidism;ELISSA (obstructive sleep apnea);HTN, goal below 130/80;Chronic diastolic heart failure (HCC) Allergies Active Allergy Reactions [...] goal of 7.0%-8.0% ([facility]) Inject 66 Units under the [...] MG/3ML SOPNIndications:DM type 2, goal: symptom mgmt ([facility]) Inject 1.8 mg under the [...] 5 06/27/2018 Active furosemide (LASIX) 40 MG Tablet 06/10/2018 8 Discontinued as of this encounter Active Problems Problem Noted Date Acute diastolic congestive heart failure (HCC) 06/12/2018 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HCC) 0 06/12/2018 ELSIE (acute kidney injury) (HCC) 06/12/20 18 Controlled substance agreement signed Body mass index (BMI) of 50.0 to 59.9 in adult ([facility]) 06/27/2017 Overview: Per Obesity protocol #1 - Per Obesity Taxonomy ICD-10 update of inactive term Uncontrolled type 2 diabetes mellitus with stage 3 chronic kidney disease, with long-term current use of insulin ([facility]) 05/24/2017 Gastroesophageal reflux disease with eso phagitis 03/04/2017 Restless legs syndrome 03/25/2016 Fibromyalgia 02/02/2016 Abnormality of gait 02/02/2016 Type 2 diabetes mellitus with hemoglobin A1c goal of 7.0%-8.0% ([facility]) 10/14/2014 Overview: ICD-10 update of inactive term [place] filter in place 08/19/2014 History of pulmonary [...] mass index (BMI) of 40.0-44.9 in adult ([facility] ) 08/17/2010 05/24/2017 Obesity, morbid (more than 1 00 lbs over ideal weight or BMI > 40) ([facility]) 12/23/2009 06/30/2017 Overview: Per Obesity Taxonomy ICD-10 update of inactive term HTN, GOAL BELOW 130/80 10/22/2009 2 Overview: Per HTN Taxonomy. Pneumonia in aspergillosis ([facility]) 09/14/2009 02/15/2017 Venous thrombosis 09/14/2009 10/15/2010 Respiratory failure, acute ([facility]) 09/14/2009 02/15/2017 Spontaneous pneumothorax 09/14/2009 017 Dysuria 08/23/2009 02/15/2017 History of heparin-induced thrombocytopenia 07/2806/12/2018 Type 2 diabetes mellitus wit h hemoglobin A1c goal of less than 7.0% ([facility]) 07/10/2009 10/14/2014 Overview: Modified per Diabetes protocol #14. ICD-10 update of inactive term Dyslipidemia, goal LDL below 160 08/16/2007 09/04/2009 Overview: Per Lipid Taxonomy. HTN, goal below 140/90 04/09/2003 0 Overview: Per HTN Taxonomy. DM type 2, not at goal ([facility]) 05/29/2002 Overview: Modified per Diabetes protocol #14. TENOSYNOVITIS FOOT-ANKLE 12/26/2001 017 Goiter 01/13/2000 06/28/2011 BACKACHE NOS 08/26/1999 05/24/2017 OBESITY, UNSPECIFIED 08/26/1999 12/23/2009 Overview: Per Obesity Taxonomy Perforation of intestine ([facility]) 0 02/15/2017 Overview: COLON Diverticulitis [...] Vital Sign Reading Time Taken Blood Pressure 132/74 06/30/2018 9:36 AM EDT Pulse 88 06/30/2018 9:36 AM EDT Temperature - - Respiratory Rate - - Oxygen Saturation - - Inhaled Oxygen Concentration - - Weight 155.8 kg (343 lb 6.4 oz) 018 9:36 AM EDT Height 163.1 cm (5' 4.21") 06/30/2018 9 :36 AM EDT Body Mass Index 58.55 06/30/2018 9:36 AM EDT in this encounter Instructions * Patient Instructions - Migdalia Jacobs DO - 06/30/2018 10:08 AM EDT GOALS: - Do not skip meals--eat 3 meals a day with 1-3 low calorie snacks (100-150 calories per snack) - Eat foods high in vegetables & fruits, lean proteins, healthy fats (olive oils, avocados, etc), fiber, and whole grains - Increase fruit and vegetable servings to 5-6 per day - Drink plenty of water--aim for at least 64oz a day - Limit processed foods, excess sugar, & fried foods - Eat slowly, take 20-30 minutes for each meal - Avoid sugar sweetened drinks including regular sodas, sweet tea, and fruit juice - Diet changes should be seen a new way of eating for life rather than a "diet" to lose weight - Increase physical activity--taking stairs, parking farther away, get 10,000 steps a day - Try to get at least 30min of exercise 5 days a week (can be broken up into 10min intervals throughout the day if needed) in this encounter Progress Notes * Migdalia Jacobs DO - 06/30/2018 9:33 AM EDT Formatting of this note may be different from the original. [facility] CONSULTATION Referring Physician: Rey Woodall MD Source of information: Patient Available records reviewed: Recent provider visits, Imaging and Labs Reason for Referral: Morbid Obesity with co morbid medical problems Stephanie Camp is a 63 year old female with a past medical history for T2DM, diastolic CHF, HTN, hypothyroidism s/p thyroidectomy for goiter, GERD, PE/DVT s/p IVC filter, ELISSA on cpap, anxiety, non-suicidal depression, fibromyalgia, restless leg syndrome, chronic knee pain, s/p R knee replacement,& obesity who presents to the [facility] for further recommendations. 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 Patient is interested in the following treatment options for obesity: medical management and possible medication use. 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 would like her to lose weight - Wt hx: gained weight over the past 10yrs - Highest wt as adult: 343lbs (2017) - Lowest wt as adult: <300lbs (2008) - Wt loss hx: none - Current plan: salt restriction - Barriers: limited mobility - Eating behaviors: cannot identify any Medical problems: Diastolic CHF: follows with cardiology; on lasix HTN: BP controlled on lisinopril & metoprolol T2DM: dx'd ~2003; on insulin & victoza (started 3-4yrs); BG running 395 this morning--talked toPCP this morning Hypothyroidism: s/p total thyroidectomy for goiter Hx of PE/DVT: s/p frank filter, placed 2008 during hospitalization, still in place Fibromyalgia: on gabapentin GERD: sx controlled on PPI RSL/Leg pain: on requip & nortiprtyline Anxiety/depression: on sertraline & clonazepam; no hospitalizations, denies SI/HI Chronic Knee pain: s/p R knee replacement, needs L knee replacement ELISSA: uses CPAP with O2 Had hospitalization in 2008 for severe PNA, complicated by chronic respiratory failure requiring trach & PEG tube (since removed) Had a recent fall yesterday & feels off balance, did not hit head Past Medical History: Diagnosis Date Allergic rhinitis due to other allergen Backache Diverticulosis of colon 01/28/06 DM type 2, not at goal (HCC) Goiter [place] filter in place 08/19/2014 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HCC) [...] TRACHEOSTOMY PLANNED performed by DANNY HOLDER at [facility] KNEE ARTHROSCOPY/DEBRIDEMENT 07/[address] PERMANENT GASTROSTOMY TUBE 09/06/09 GASTROSTOMY WITH CONSTUCTION GASTRIC TUBE performed by AMADOU NUNEZ at [facility] REMOVAL OF THYROID GLAND 06/15/2011 THYROIDECTOMY INCLUDING SUBSTERNAL THYROID CERVICAL APPROACH performed by DANNY HOLDER at [facility] REMOVE GALLBLADDER 09/06/09 CHOLECYSTECTOMY performed by AMADOU NUNEZ at [facility] REPAIR RECURRENT INCISIONAL HERNIA 1998 REVISION OF COLOSTOMY, SIMPLE 1998 SUTURE, LARGE INTESTINE W/COLOSTOMY 1996 perforation R colon with colostomy VENA CAVA FILTER/LIGATION/CLIP 08/19/09 Frank filter placement through the right femoral 08/19/[address] Lerma at [facility] Review of patient's allergies indicates: Allergen Reactions Jardiance [Empagliflozin] Other (Please comment) 3 yeast infections in 6 weeks after starting Heparin Heparin Induced Thrombocytopenia Morphine And Related Hallucinations Tetanus Toxoid Other (Please comment) Passed out Current Outpatient Prescriptions Medication Sig Dispense Refill Glucose Blood (ONETOUCH ULTRA BLUE) STRP Check sugars four times daily as directed 100 Strip 5 insulin aspart (NOVOLOG FLEXPEN) 100 UNIT/ML SOPN Inject 15 units breakfast, 10 units with lunch and 18 units with dinner plus sliding scale up to 80 units per day 10 Pre-filled Pen Syringe Dosing Unit 5 lisinopril (PRINIVIL) 10 MG Tablet Take 0.5 Tabs by mouth daily. 50 Tab 3 metoprolol tartrate (LOPRESSOR) 25 MG Tablet Take 2 Tabs by mouth 2 times a day. 120 Tab 11 furosemide (LASIX) 40 MG Tablet MAG64 64 MG TBEC Insulin Pen Needle (BD PEN NEEDLE SHORT [...] BREAKFAST OR OTHER MEDS 90 Tab 1 rOPINIRole (REQUIP) 1 MG Tablet TAKE ONE [...] 2 times a day. 180 Tab 1 insulin glargine (INSULIN GLARGINE) 100 UNIT/ML SOPN Inject 66 Units under the skin 2 times a day. Titrate by 2 units until SBGM <150 2 Pre-filled Pen Syringe Dosing Unit 11 oxygen GAS 4 LPM bled through CPAP 11 cwp during all periods of sleep. 1 Each 0 PRILOSEC 20 MG PO CPDR one tablet daily sertraline (ZOLOFT) 100 MG Tablet TAKE ONE AND ONE-HALF TABLETS BY MOUTH DAILY 135 Tab 1 gabapentin (NEURONTIN) 300 MG Capsule take 1 capsule by mouth twice daily for 2 weeks then switch to 1 three times daily 90 Cap 3 docusate sodium (STOOL SOFTENER) 100 MG Capsule Take 100 mg by mouth 2 times a day as needed for Constipation. 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 [id number] Social History Main Topics Smoking status: Former Smoker Packs/day: 1.00 Years: 15.00 Quit date: 08/26/1997 Smokeless tobacco: Never Used Alcohol use Yes Comment: rare Drug use: No Sexual activity: Not on file Other Topics Concern Not on file Social History Narrative 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 She denies any heat or cold intolerance, change in her voice, or increase in hair growth. She denies any clinicalsymptoms of depression. No recent abdominal pain or discomfort. No symptoms suggestive of disorded sleep. All other review of systems negative. Weight History: The patient's current body weight is Wt Readings from Last 1 Encounters: 06/30/18 (!) 155.8 kg (343 lb 6.4 oz) Highest body weight is 343 pounds in 2018. Wt Readings from Last 10 Encounters: 06/30/18 (!) 155.8 kg (343 lb 6.4 oz) 06/23/18 (!) 154.7 kg (341 lb) 06/12/18 (!) 154.9 kg (341 lb 7 oz) 06/05/18 (!) 159.9 kg (352 lb 9.6 oz) 05/02/18 (!) 153.8 kg (339 lb) 05/01/18 (!) 153.9 kg (339 lb 4 oz) 03/24/18 (!) 150.7 kg (332 lb 2 oz) 01/26/18 (!) 152 kg (335 lb 2 oz) 12/29/17 (!) 149.3 kg (329 lb 4 oz) 08/29/17 (!) 148.4 kg (327 lb 3.2 oz) Height is Ht Readings from Last 1 Encounters: 06/30/18 1.631 m (5' 4.21") Nursing Notes: Zeb Ibrahim LPN 06/30/18 0979 Unsigned Pt verified identity by last name and date. Chief Complaint Patient presents with NEW PATIENT Open to all options for weight loss. Waist circumference 59 inches Neck circumference 15 inches Sleep Apnea STOP-BANG - has dx of ELISSA & uses CPAP with O2 Current Diet: Describes typical diet history/24 hr recall Breakfast: cheese, 2 fruits & coffee Snacks: none Lunch: sometimes skips; sandwich & occasionally with fruit or vegetables Snacks: popcorn Dinner: chicken or hamburger with mashed potatoes & vegetable Snacks: milk & jeremy crackers or cookie Drinks: coffee & water Restaurant meals: once a week Alcohol: Infrequent Tobacco Use: No Drug Use: No Type of exercise: limited due to pain Exercise: Times per week: - Minutes per day: - Previous Nutritional Intervention: As stated above, the patient has tried multiple commercial and self-directed weight loss programs in the past without significant correction success. The names and dates of these programs are various.She confirms any past pharmacotherapy for weight loss rx--unsure name. Physical Examination: BP 132/74 | Pulse 88 | Ht 5' 4.213" (1.631m) | Wt 343 lbs 6.4 oz (155.765kg) | BMI 58.55 kg/m | BSA 2.66 m | LMP 03/11/2003 PHYSICAL EXAMINATION: General: no acute distress, well groomed, well developed, well nourished HEENT: unremarkable, NC/AT, sclera nonicteric, MMM, neck is supple with full range of motion Heart: normal S-1 and S-2. RRR, no murmurs or ectopy Lungs: normal respiratory effort, clear to auscultation, no wheezing/rhonchi/rales Abdomen: soft, obese, non-distended, non tender, normoactive bowel sounds; no rebound/guarding Extremities: no LE edema, no cyanosis, otherwise normal Skin: warm, dry; no obvious rashes Neuro: no gait abnormality, speech is normal pitch and tone, no gross motor/sensory deficits Psych: normal mood & affect Assessment: Ms. Camp is a 63 year old female with a past medical history listed above, who presents to the [facility] for further recommendations. The plan is as follows: GOALS: - Do not skip meals--eat 3 meals a day with 1-3 low calorie snacks (100-150 calories per snack) - Eat foods high in vegetables & fruits, lean proteins, healthy fats (olive oils, avocados, etc), fiber, and whole grains - Increase fruit and vegetable servings to 5-6 per day - Drink plenty of water--aim for at least 64oz a day - Limit processed foods, excess sugar, & fried foods - Eat slowly, take 20-30 minutes for each meal - Avoid sugar sweetened drinks including regular sodas, sweet tea, and fruit juice - Diet changes should be seen a new way of eating for life rather than a "diet" to lose weight - Increase physical activity--taking stairs, parking farther away, get 10,000 steps a day - Try to get at least 30min of exercise 5 days a week (can be broken up into 10min intervals throughout the day if needed) (R63.5) Abnormal weight gain (primary encounter diagnosis) (Z68.43) BMI 50.0-59.9, adult ([facility]) - pt is interested in medical mgmt - time spent discussing realistic goals & lifestyle changes such as diet & exercise changes - encouraged pt to develop a diet that is high in vegetables & fruits, lean proteins, healthy fats (olive oils, avocados, etc), fiber, and whole grain carbs - limit processed foods, excess sugar, sugar sweetened beverages, & fried foods - diet changes should be seen a new way of eating for life - encouraged pt to increase physical activity (taking stairs, parking farther away, get 10,000 steps a day) & start an exercise program (at least 30min most days of the week of moderate intensityexercise such as walking or using cardio machines with strength training at least 2 days a week) - encouraged pt that the above lifestyle changes will have an overall positive impact on health - possible medical causes/meds contributing to weight gain/difficulty losing weight: - gabapentin - insulin - see goals above - pt received the following handouts that were discussed in detail with pt: myplate, 100 calorie list, sample meal plan, protein list, & recipe of the month - return to clinic in 2mo with provider (E11.9) Type 2 diabetes mellitus with hemoglobin A1c goal of 7.0%-8.0% ([facility]) - poorly controlled-- BG this morning was 395, pt spoke with MTM this morning regarding her elevated BG - last A1C was 10 (04/2018) - currently on insulin & victoza - d/w pt the importance of choosing foods high in protein, vegetables, healthy fats, & whole grains; avoid processed, sugary foods/drinks (K21.0) Gastroesophageal reflux disease with esophagitis - sx controlled on PPI (F41.8) Depression with anxiety - mood reportedly stable on sertraline (less wt gain than most SSRIs) & clonazepam (E89.0) Postsurgical hypothyroidism - last TSH was 3.14 (04/2018) - currently on levothyroxine (G47.33) ELISSA (obstructive sleep apnea) - continue nocturnal CPAP (I10) HTN, goal below 130/80 - BP stable in clinic today - currently on lisinopril & metoprolol (I50.32) Chronic diastolic heart failure (HCC) - pt reports concern that she is accumulating fluid--gained ~2lbs over night; she plans on stoppingby her PCP office after this appt - currently on lasix Pt expressed that she is not feeling well today, feels "wobbly." I expressed my concern that her BGwas very elevated (almost 400) this morning and would be concerned for dehydration or illness triggering hyperglycemia. Pt is also concerned that she is accumulating fluid. I asked the pt if she feels she needs to be seen in the ER and she said no. Pt assured me that she is going to stop by her PCP's office after our appt to discuss her concerns. She did speak with MTM this morning about her hyperglycemia & they made recommendations for insulin changes. I encouraged pt to see PCP or go to the ER if worsening sx. Pt expressed understanding & is agreeable. The patient will return to the [facility] in four weeks. She was given my card and instructed to call in the meantime with any further concerns or questions. Time spent with patient 45 minutes. More than 50% of my time spent with patient providing counseling about the benefits of weight loss, about his/her nutritional status, detailed explanations about calorie count, types of nutrients to choose, and composition of the meals. Motivational interview prov ided in order to prepare the patient to achieve future goals. The patient agreed to try all the plan discussed and return in one month Migdalia Jacobs, in this encounter Nursing Notes * Zeb Ibrahim LPN - 06/30/2018 9:36 AM EDT Formatting of this note may be different from the original. Pt verified identity by last name and date. Chief Complaint Patient presents with NEW PATIENT Open to all options for weight loss. Waist circumference 59 inches Neck circumference 15 inches in this encounter Plan of Treatment Upcoming Encounters Date Type Specialty Care Team Description 07/03/2018 Pharmacy Pharmacy Sp, [facility] [address] [place] [address] [phone] 07/13/2018 Pharmacy Pharmacy Sp, [facility] [address] [place] [address] [phone] 07/13/2018 Office Visit Nephrology Gia White MD [address] [facility] [address] [place] [address] [phone] 07/21/2018 Office Visit Cardiology Marjorie Powell PA-C [address] [place] [address] [phone] 08/01/2018 Office Visit Family Medicine Kevin Whiteside DO [address] [place] [address] [phone] 08/29/2018 Office Visit Gastroenterology Migdalia Jacobs, DO [address] [place] [address] [phone] 05/04/2019 Office Visit Sleep Disorders Celsa Tafoya CRNP [address] [place] [address] [phone] Health Maintenance Due Date Last Done Comments DIABETES-EYE EXAM 02/24/2011 02/24/2010 (Do ne elsewhere), 12/18/2009, 02/18/2008 (Done elsewhere) PAP SMEAR-EVERY 3 YRS,AGES 21-65 05/11/2016 05/11/2013, 03/01/2008, 10/19/2006, Additional history exists DIABETES-HGBA1C EVERY 6 MONTHS 11/01/2018 05/01/2018, 12/29/2017, 07/14/2017, Additional history exists CKD GFR USE SMARTSET 67945 12/26/201806/27, 06/12/2018, 06/05/2018, Additional history exists CKD PHOS USE SMARTSET 78583 12/29/2018 12/29/2017, 08/26/2009, 08/25/2009, Additional history exists DIABETES-FOOT EXAM 12/29/2018 12/29/2017, 0 10/21/2016, 12/11/2015, Additional history exists Yearly B-12 05/16/2019 05/16/2018 CKD HGB USE SMARTSET 27679 06/05/201906/05, 12/26/2017, 05/21/2017, Additional history exists BREAST [...] fileas of this encounter Visit Diagnoses Diagnosis Abnormal weight gain - Prima ry BMI 50.0-59.9, adult (HCC) Body Mass Index 50.0-59.9, adult Type 2 diabetes mellitus wit h hemoglobin A1c goal of 7.0%-8.0% (HCC) Gastroesophageal reflux dise ase with esophagitis Depression with anxiety Dysthymic disorder Postsurgical hypothyroidism ELISSA (obstructive sleep apnea ) Obstructive sleep apnea (adult) (pediatric) HTN, goal below 130/80 Unspecified essential hypertension Chronic diastolic heart fail ure (HCC) Chronic diastolic heart failure in this encounter
--- OUTSIDE RECORDS SUMMARY | 2023-06-01 06:00 | External Medical Summary | Summary of Care ---
Author Name Unknown [place] [address] Phone Care Team Providers Care Special Event Assistant Name Role Phone Kevin Whiteside Primary Care Provider Reason for Visit * Reason Comments Dosage Adjustment In Person (Anticoag Cl inic) DIABETES FOLLOW-UP Encounter Details Date Type Department Care Team Description 07/13/2018 Pharmacy Pharmacy, [facility] [address] [facility] [place] [address] Sp, [facility] [address] [facility] [place] [address] [phone] Uncontrolled type 2 diabetes mellitus with stage 3 chronic kidney disease, with long-term current use of insulin ([facility])*;Type 2 diabetes mellitus with hemoglobin A1c goal of 7.0%-8.0% ([facility]) Allergies Active Allergy Reactions Severity Noted [...] [facility]),Hypoxemia,ELISSA (obstructive sleep apnea),HTN, goal below 140/80 [...] Pen Syringe Dosing Unit 5 07/13/2018 Active insulin aspart (NOVOLOG FLEXPEN) 100 UNIT/ML SOPN Inject 15 units breakfast, 10 units with lunch and 18 units with dinner plus sliding scale up to 80 units per day 10 Pre-filled Pen Syringe Dosing Unit 5 06/27/2018 8 Discontinued Insulin Degludec (TRESIBA FLEXTOUCH) 200 UNIT/ML SOPN Inject up to 160 units daily as directed 1 Box Dosing Unit 5 07/03/2018 8 Discontinued as of this encounter Active Problems Problem Noted Date Acute diastolic congestive heart failure (HCC) 06/12/2018 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HCC) 0 06/12/2018 ELSIE (acute kidney injury) ([facility]) 06/12/20 18 Controlled substance agreement signed Body mass index (BMI) of 50.0 to 59.9 in adult ([facility]) 06/27/2017 Overview: Per Obesity protocol #1 - Per Obesity Taxonomy ICD-10 update of inactive term Uncontrolled type 2 diabetes mellitus with stage 3 chronic kidney disease, with long-term current use of insulin ([facility]) 05/24/2017 Gastroesophageal reflux disease with eso phagitis 03/04/2017 Restless legs syndrome 03/25/2016 Fibromyalgia 02/02/2016 Abnormality of gait 02/02/2016 Type 2 diabetes mellitus with hemoglobin A1c goal of 7.0%-8.0% ([facility]) 10/14/2014 Overview: ICD-10 update of inactive term [place] filter in place 08/19/2014 History of pulmonary embolus (PE) 2013 Statin intolerance 07/16/2014 HTN, goal below 130/80 02/22/2014 Venous insufficiency 02/07/2013 ELISSA (obstructive sleep apnea) 09/16/2011 Overview: CPAP 11 cwp Mild, AHI 11.3 but with significant nocturnal hypoxemia Dicks Hypoxemia 07/22/2011 Overview: Nocturnal ox 2 LPM 07/20/11 -- mean 84%, low 76%, time <89% 6:21 hours, TNIY 47 DHC Postsurgical hypothyroidism 06/16/2011 Depression with [...] index (BMI) of 40.0-44.9 in adult ([facility] ) 08/17/2010 05/24/2017 Obesity, morbid (more than 1 00 lbs over ideal weight or BMI > 40) ([facility]) 12/23/2009 06/30/2017 Overview: Per Obesity Taxonomy ICD-10 update of inactive term HTN, GOAL BELOW 130/80 10/22/2009 2 Overview: Per HTN Taxonomy. Pneumonia in aspergillosis ([facility]) 09/14/2009 02/15/2017 Venous thrombosis 09/14/2009 10/15/2010 Respiratory failure, acute ([facility]) 09/14/2009 02/15/2017 Spontaneous pneumothorax 09/14/2009 017 Dysuria 08/23/2009 02/15/2017 History of heparin-induced thrombocytopenia 07/2806/12/2018 Type 2 diabetes mellitus wit h hemoglobin A1c goal of less than 7.0% ([facility]) 07/10/2009 10/14/2014 Overview: Modified per Diabetes protocol #14. ICD-10 update of inactive term Dyslipidemia, goal LDL below 160 08/16/2007 09/04/2009 Overview: Per Lipid Taxonomy. HTN, goal below 140/90 04/09/2003 0 Overview: Per HTN Taxonomy. DM type 2, not at goal ([facility]) 05/29/2002 Overview: Modified per Diabetes protocol #14. TENOSYNOVITIS FOOT-ANKLE 12/26/2001 017 Goiter 01/13/2000 06/28/2011 BACKACHE NOS 08/26/1999 05/24/2017 OBESITY, UNSPECIFIED 08/26/1999 12/23/2009 Overview: Per Obesity Taxonomy Perforation of intestine ([facility]) 0 02/15/2017 Overview: COLON Diverticulitis as [...] this encounter Progress Notes * Frances Ellis, [facility] - 07/13/2018 10:17 AM EDT Formatting of this note may be different from the original. Medication Therapy Disease Management Diabetes Interval History: Stephanie Camp is an 63 year old year old female returning to the Med[facility] Therapy Disease Management [facility] for a diabetes follow-up appointment. Blood glucose control since last visit: stable Medication intolerance: yes; Jardiance - yeast infection, can't be on metformin bc ELSIE Medication compliance: yes Hospitalization or ED Utilization since last visit: no Hypoglycemia requiring assistance since last visit: no Symptoms of hyperglycemia or hypoglycemia present today: no Diet: eating more salads - lots of fresh veggies this week. Exercise: minimal Current Diabetes Medications: Increase Tresiba 136 units daily Victoza 1.8 mg daily Novolog 15 units with breakfast, 10 units lunch, 18 units at dinner + CF 1:40 over 120 (tighten) Self-Monitoring Blood Glucose Review: Patient currently tests blood glucose 3 time(s) daily Pre am Pre Lunch Pre pm HS 308 268 267 305 428 400 313 273 365 260 283 406 338 296 311 411 322 300 263 209 312 291 Average 301 342 309 305 Hi 428 406 411 305 Lo [address] 295[address]5 344 298.6 305 Range 219 138 151 0 Hypoglycemia: 1. Do you know what the symptoms of hypoglycemia are? Yes 2. How often can you tell by your symptoms if your blood sugar is low? Often 3. In a typical week, how many times will your blood sugar go below 70 mg/dL? Never Patient Active Problem List Diagnosis Code Other [...] insulin ([facility]) E11.22, E11.65, N18.3, Z79.4 Body mass index (BMI) of 50.0 to 59.9 in adult ([facility]) Z68.43 Controlled substance agreement signed Z79.899 Acute diastolic congestive heart failure ([facility]) I50.31 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[facility]) D75.82 ELSIE (acute kidney injury) ([facility]) N17.9 Review of patient's allergies indicates: Allergen Reactions Jardiance [Empagliflozin] Other (Please comment) 3 yeast infections in 6 weeks after starting Heparin Heparin Induced Thrombocytopenia Morphine And Related Hallucinations Tetanus Toxoid Other (Please comment) Passed out Current Outpatient Prescriptions Medication Sig Dispense Refill furosemide (LASIX) 40 MG Tablet Take 80mg 3 days per week and 40mg all other days 35 Tab 5 Insulin Degludec (TRESIBA FLEXTOUCH) 200 UNIT/ML SOPN Inject up to 160 units daily as directed 1 Box Dosing Unit 5 Glucose Blood (ONETOUCH ULTRA BLUE) STRP [...] 120 Tab 11 MAG64 64 MG TBEC sertraline (ZOLOFT) 100 MG Tablet TAKE ONE [...] Objective: The ASCVD Risk score (Freddy JOHNS Jr, et al., 2013) failed to calculate for the following reasons: Cannot find a previous HDL lab Cannot find a previous total cholesterol lab Estimated body mass index is 58.55 kg/(m^2) as calculated from the following: Height as of 06/30/18: 1.631 m (5' 4.21"). Weight as of 06/30/18: 155.8 kg (343 lb 6.4 oz). BP Readings from Last 3 Encounters: 06/30/18 132/74 06/23/18 142/76 06/12/18 130/80 HEMOGLOBIN, A1C(%) Nessa Dt/Tm Resulted Value Status 05/01/18 9:12A 05/01/18 10.0* FINAL 12/29/17 12:43P 12/29/17 11.6* FINAL 07/14/17 12:35P 07/14/17 9.3* FINAL MICROALBUMIN RATIO(mg/g creat) Nessa Dt/Tm Resulted Value Status 05/01/18 9:13A 05/01/18 <18 FINAL 03/03/17 12:37P 03/03/17 <15 FINAL 06/24/16 3:28P 06/24/16 <12 FINAL BASIC METAB PANEL, BMP Nessa Dt/Tm Resulted Value Status BUN (mg/dL) 06/27/18 11:12A 06/27/18 47* F CREATININE (mg/dL) 06/27/18 11:12A 06/27/18 1.6* F E GLOM FILT RATE ( ) 06/27/18 11:12A 06/27/18 35.0* F SODIUM (mmol/L) 06/27/18 11:12A 06/27/18 137 F POTASSIUM (mmol/L) 06/27/18 11:12A 06/27/18 4.3 F CHLORIDE (mmol/L) 06/27/18 11:12A 06/27/18 99 F CO2 (mmol/L) 06/27/18 11:12A 06/27/18 24 F ANION GAP (mmol/L) 06/27/18 11:12A 06/27/18 14 F GLUCOSE (mg/dL) 06/27/18 11:12A 06/27/18 364* F CALCIUM (mg/dL) 06/27/18 11:12A 06/27/18 9.6 F ALT(U/L) Nessa Dt/Tm Resulted Value Status 12/29/17 12:43P 12/29/17 40* FINAL LDL (DIRECT MEASURE)(mg/dL) Nessa Dt/Tm Resulted Value Status 07/14/17 12:35P 07/14/17 109 FINAL Assessment & Plan: Glycemic control is unstable and not at goal. Patient agreeable to adjust medications as noted below. Specifically tightened patient's correctionfactors as BGs are remaining elevated with correction. Also increased breakfast dose of Novolog as BGs are rising from breakfast to lunch. Increase Tresiba slightly. Patient is agreeable to SMBG 3 time(s) daily. Patient aware to contact clinic if any hypoglycemia before next visit. Reviewed rule of 15s. Diabetes Medications: Increase Tresiba 140 units daily Victoza 1.8 mg daily Increase Novolog 18 units with breakfast (increase), 10 units lunch, 18 units at dinner + CF 1:30 over 120 (tighten) at meals and bedtime Diabetes Health Maintenance: due for eye exam. A1c with PCP appt in 3 weeks. Return to clinic: (pt sees PCP in 3 weeks) 8 week(s) - weekly phone call Frances Huerta [facility] Clinical Pharmacist Medication Therapy Disease Management 07/13/2018, 10:17 AM in this encounter Plan of Treatment Upcoming Encounters Date Type Specialty Care Team Description 07/13/2018 Office Visit Nephrology Gia White MD [address] [place] [address] [phone] Arrived 07/21/2018 Office Visit Cardiology Marjorie Powell PA-C [address] [place] [address] [phone] 08/01/2018 Office Visit Family Medicine Kevin Whiteside DO [address] [address] [phone] 08/29/2018 Office Visit Gastroenterology Migdalia Jacobs DO [address] [place] [address] [phone] 05/04/2019 Office Visit Sleep Disorders Celsa Tafoya CRNP [address] [address] [phone] Health Maintenance Due Date Last Done Comments DIABETES-EYE EXAM 02/24/2011 02/24/2010 (Do ne elsewhere), 12/18/2009, 02/18/2008 (Done elsewhere) PAP SMEAR-EVERY 3 YRS,AGES 21-65 05/11/2016 05/11/2013, 03/01/2008, 10/19/2006, Additional history exists DIABETES-HGBA1C EVERY 6 MONTHS 11/01/2018 05/01/2018, 12/29/2017, 07/14/2017, Additional history exists CKD GFR USE SMARTSET 76080 12/26/201806/27, 06/12/2018, 06/05/2018, Additional history exists CKD PHOS USE SMARTSET 33067 12/29/2018 12/29/2017, 08/26/2009, 08/25/2009, Additional history exists DIABETES-FOOT EXAM 12/29/2018 12/29/2017, 0 10/21/2016, 12/11/2015, Additional history exists Yearly B-12 05/16/2019 05/16/2018 CKD HGB USE SMARTSET 58224 06/05/201906/05, 12/26/2017, 05/21/2017, Additional history exists BREAST [...] wit h hemoglobin A1c goal of 7.0%-8.0% ([facility]) in this encounter
--- OUTSIDE RECORDS SUMMARY | 2023-06-01 06:01 | External Medical Summary | Summary of Care ---
Author Name Unknown Organization [place] [address] Phone Care Team Providers Care Shoe Cementer Name Role Phone Kevin Whiteside Primary Care Provider Reason for Visit * Reason Comments case management Encounter Details Date Type Department Care Team Description 06/16/2018 Telephone Internal Medicine [address] [address] Frances Nicholson RN [address] [place] [id number] case management Allergies Active Allergy Reactions [...] of 7.0%-8.0% ([facility]) Inject 66 Units under the [...] as directed 100 Each 5 02/08/2018 Active Glucose Blood (ONETOUCH ULTRA BLUE) STRP Check sugars twice daily as directed 100 Strip 5 02/08/2018 Active rOPINIRole (REQUIP) 1 MG TabletIndications:Res tless legs syndrome TAKE ONE TABLET BY MOUTH AT BEDTIME 30 Tab 4 03/09/2018 Active lisinopril (PRINIVIL) 10 MG TabletIndications:HTN , goal below 140/80 TAKE ONE TABLET BY MOUTH DAILY 90 Tab 3 04/11/2018 Active gabapentin (NEURONTIN) 300 MG CapsuleIndications:Ne uropathy,Fibromyalgia take 1 capsule by mouth twice daily for 2 weeks then switch to 1 three times daily 90 Cap 3 04/11/2018 Active levothyroxine (LEVOXYL) 25 MCG TabletIndications:Pos tsurgical hypothyroidism TAKE ONE TABLET BY MOUTH IN THE MORNING AT LEAST 30 MINUTES PRIOR TO BREAKFAST OR OTHER MEDS 90 Tab 1 04/12/2018 Active metoprolol tartrate (LOPRESSOR) 25 MG TabletIndications:HTN , goal below 130/80 TAKE ONE TABLET BY MOUTH TWICE DAILY 60 Tab 11 04/25/2018 Active cyclobenzaprine (FLEXERIL) 10 MG Tablet TAKE ONE TABLET BY MOUTH AT BEDTIME NEEDED FOR MUSCLE SPASM 30 Tab 2 05/01/2018 Active insulin aspart (NOVOLOG FLEXPEN) 100 UNIT/ML SOPN Inject 5 units breakfast and lunch and 10 units with dinner or as directed up to 50 units per day 5 Pre-filled Pen Syringe Dosing Unit 5 05/16/2018 Active Insulin Pen Needle (BD PEN NEEDLE SHORT U/F) 31G X 8 MM Use 5 times daily with insulin 200 Box Dosing Unit 11 05/16/2018 Active sertraline (ZOLOFT) 100 MG TabletIndications:Dep ression with anxiety TAKE ONE AND ONE-HALF TABLETS BY MOUTH DAILY 135 Tab 1 06/07/2018 Active furosemide (LASIX) 40 MG Tablet 06/10/2018 Active MAG64 64 MG TBEC 06/10/2018 Active Potassium Chloride Aylene ER 20 MEQ TBCR 06/10/2018 Activ e as of this encounter Active Problems Problem Noted Date Acute diastolic congestive heart failure ([facility]) 06/12/2018 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[facility]) 0 06/12/2018 ELSIE (acute kidney injury) ([facility]) 06/12/20 18 Controlled substance agreement signed Body mass index (BMI) of 50.0 to 59.9 in adult ([facility]) 06/27/2017 Overview: Per Obesity protocol #1 - Per Obesity Taxonomy ICD-10 update of inactive term Uncontrolled type 2 diabetes mellitus with stage 3 chronic kidney disease, with long-term current use of insulin ([facility]) 05/24/2017 Gastroesophageal reflux disease with eso phagitis 03/04/2017 Restless legs syndrome 03/25/2016 Fibromyalgia 02/02/2016 Abnormality of gait 02/02/2016 Type 2 diabetes mellitus with hemoglobin A1c goal of 7.0%-8.0% ([facility]) 10/14/2014 Overview: ICD-10 update of inactive term [place] filter in place 08/19/2014 History of [...] index (BMI) of 40.0-44.9 in adult ([facility] ) 08/17/2010 05/24/2017 Obesity, morbid (more than 1 00 lbs over ideal weight or BMI > 40) ([facility]) 12/23/2009 06/30/2017 Overview: Per Obesity Taxonomy ICD-10 update of inactive term HTN, GOAL BELOW 130/80 10/22/2009 2 Overview: Per HTN Taxonomy. Pneumonia in aspergillosis ([facility]) 09/14/2009 02/15/2017 Venous thrombosis 09/14/2009 10/15/2010 Respiratory failure, acute ([facility]) 09/14/2009 02/15/2017 Spontaneous pneumothorax 09/14/2009 017 Dysuria 08/23/2009 02/15/2017 History of heparin-induced thrombocytopenia 07/2806/12/2018 Type 2 diabetes mellitus wit h hemoglobin A1c goal of less than 7.0% ([facility]) 07/10/2009 10/14/2014 Overview: Modified per Diabetes protocol #14. ICD-10 update of inactive term Dyslipidemia, goal LDL below 160 08/16/2007 09/04/2009 Overview: Per Lipid Taxonomy. HTN, goal below 140/90 04/09/2003 0 Overview: Per HTN Taxonomy. DM type 2, not at goal ([facility]) 05/29/2002 Overview: Modified per Diabetes protocol #14. TENOSYNOVITIS FOOT-ANKLE 12/26/2001 017 Goiter 01/13/2000 06/28/2011 BACKACHE NOS 08/26/1999 05/24/2017 OBESITY, UNSPECIFIED 08/26/1999 12/23/2009 Overview: Per Obesity Taxonomy Perforation of intestine ([facility]) 0 02/15/2017 Overview: COLON Diverticulitis [...] Telephone Encounter - Frances Nicholson RN - 06/16/2018 2:32 PM EDT PMH: DM, HTN, SOA with CPAP, history of PE, zora[place] filter in place, dyslipidemia-statin intol, GERD, Fibromyalgia, depression/anxiety New-acute diastolic HF and ELSIE sent from PCP office abnormal labs and shortness of breath. x-ray concerning for atypical pneumonia 06/06/18-[facility] admit Acute respiratory failure [...] weight 343 on d/c 06/10/18 d/c from [facility] new on Lasix, potassium and Mg Stopped Metformin and HCTZ ROSA wk 1 Spoke with pt Says she is feeling pretty good. Not SOB, swelling is down. Lost a couple lbs Weight today is 346 Spoke with MTM today and insulin changed BS are improving since last contact. Running 194-300 No chest pain No increased SOB, has C-PAP Denies increased edema Denies unmanaged pain Denies N/V or decreased intake Denies diff with bowels or bladder Reviewed HF symptom monitoring: -Weigh self daily in am, post-void and record -Do not add salt to food, avoid foods high in sodium -Report the following: ->3 lb weight gain in one day or 5 lbs in a week to PCP -increased edema in feet, abdomen or hands -increased SOB and cough, especially if at night -increased fatigue or vertigo Instructed to call with BS >250 x 24 hours or <70 Stressed safety/fall precautions Call next week Frances Nicholson RN, [facility] [employer] [phone] in this encounter Plan of Treatment Upcoming Encounters Date Type Specialty Care Team Description 06/21/2018 Pharmacy Pharmacy Sp, [facility] [address] [facility] [place] [address] [phone] 06/23/2018 Imaging Radiology 06/23/2018 Office Visit Cardiology Rey Woodall MD [address] [address] [phone] 06/27/2018 Pharmacy Pharmacy , [facility] [address] [facility] [place] [address] [phone] 07/13/2018 Office Visit Nephrology Gia White MD [address] [facility] [place] [address] [phone] 08/01/2018 Office Visit Family Medicine Kevin Whiteside DO [address] [address] [phone] 05/04/2019 Office Visit Sleep Disorders Celsa Tafoya CRNP [address] [address] [phone] Health Maintenance Due Date Last Done Comments DIABETES-EYE EXAM 02/24/2011 02/24/2010 (Do ne elsewhere), 12/18/2009, 02/18/2008 (Done elsewhere) Zoster Vaccines HMT (2 of 3) 02/05/2016 12/11/2015 BREAST CANCER SCREENING DISCUSSION YEARLY AGES 40-75 05/09/2016 05/09/2015, 07/12/2014, 07/04/2014, Additional history exists PAP SMEAR-EVERY 3 YRS,AGES 21-65 05/11/2016 05/11/2013, 03/01/2008, 10/19/2006, Additional history exists DIABETES-HGBA1C EVERY 6 MONTHS 11/01/2018 05/01/2018, 12/29/2017, 07/14/2017, Additional history exists CKD GFR USE SMARTSET 89582 12/10/201806/12, 06/05/2018, 05/16/2018, Additional history exists CKD PHOS USE SMARTSET 32029 12/29/2018 12/29/2017, 08/26/2009, 08/25/2009, Additional history exists DIABETES-FOOT EXAM 12/29/2018 12/29/2017, 0 10/21/2016, 12/11/2015, Additional history exists Yearly B-12 05/16/2019 05/16/2018 CKD HGB USE SMARTSET 09576 06/05/201906/05, 12/26/2017, 05/21/2017, Additional history exists PNEUMOCOCCAL 19-64 MEDIUM RISK Completed 08/22/2009, 06/15/2006 *DEPRESSION SCREENING, ANNUAL FOR PTS 18 AND OVER Addressed 06/12/2018 Overridden wi th the intention of not completing the topic Influenza Vaccine (FLU shot) Completed 06/12/2018, 06/12/2018, 07/14/2017, Additional history exists as of this encounter Implants Not on fileas of this encounter
--- OUTSIDE RECORDS SUMMARY | 2023-06-01 06:01 | External Medical Summary | Summary of Care ---
Author Name Unknown Organization [place] [address] Phone Care Team Providers Care Special Inspector Name Role Phone Kevin Whiteside Primary Care Provider Encounter Details Date Type Department Care Team Description 06/13/2018 [facility] [address] [address] Frances Nicholson RN [address] [place] [address] HF (heart failure) ([facility])*;Uncontrolled type 2 diabetes mellitus with stage 3 chronic kidney disease, with long-term current use of insulin ([facility]) Allergies Active Allergy [...] of 7.0%-8.0% ([facility]) Inject 66 Units under [...] 64 MG TBEC 06/10/2018 Active Potassium Chloride Ayleen ER 20 MEQ TBCR 06/10/2018 Activ e as of this encounter Active Problems Problem Noted Date Acute diastolic congestive heart failure (HCC) 06/12/2018 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[facility]) 0 06/12/2018 ELSIE (acute kidney injury) ([facility]) 06/12/20 18 Controlled substance agreement signed Body mass index (BMI) of 50.0 to 59.9 in adult ([facility]) 06/27/2017 Overview: Per Obesity protocol #1 - Per Obesity Taxonomy ICD-10 update of inactive term Uncontrolled type 2 diabetes mellitus with stage 3 chronic kidney disease, with long-term current use of insulin ([facility]) 05/24/2017 Gastroesophageal reflux disease with eso phagitis 03/04/2017 Restless legs syndrome 03/25/2016 Fibromyalgia 02/02/2016 Abnormality of gait 02/02/2016 Type 2 diabetes mellitus with hemoglobin A1c goal of 7.0%-8.0% ([facility]) 10/14/2014 Overview: ICD-10 update [...] mass index (BMI) of 40.0-44.9 in adult ([facility] ) 08/17/2010 05/24/2017 Obesity, morbid (more than 1 00 lbs over ideal weight or BMI > 40) ([facility]) 12/23/2009 06/30/2017 Overview: Per Obesity Taxonomy ICD-10 update of inactive term HTN, GOAL BELOW 130/80 10/22/2009 2 Overview: Per HTN Taxonomy. Pneumonia in aspergillosis ([facility]) 09/14/2009 02/15/2017 Venous thrombosis 09/14/2009 10/15/2010 Respiratory failure, acute ([facility]) 09/14/2009 02/15/2017 Spontaneous pneumothorax 09/14/2009 017 Dysuria 08/23/2009 02/15/2017 History of heparin-induced thrombocytopenia 07/2806/12/2018 Type 2 diabetes mellitus wit h hemoglobin A1c goal of less than 7.0% ([facility]) 07/10/2009 10/14/2014 Overview: Modified per Diabetes protocol #14. ICD-10 update of inactive term Dyslipidemia, goal LDL below 160 08/16/2007 09/04/2009 Overview: Per Lipid Taxonomy. HTN, goal below 140/90 04/09/2003 0 Overview: Per HTN Taxonomy. DM type 2, not at goal ([facility]) 05/29/2002 Overview: Modified per Diabetes [...] Progress Notes * Frances Nicholson RN - 06/13/2018 2:31 PM EDT PMH: DM, HTN, SOA with CPAP, history of PE, frank filter in place, dyslipidemia-statin intol, GERD, Fibromyalgia, depression/anxiety New-acute diastolic HF and ELSIE sent from PCP office abnormal labs and shortness of breath. x-ray concerning for atypical pneumonia 06/06/18-[facility] admit Acute respiratory failure with [...] weight 343 on d/c 06/10/18 d/c from [facility] new on Lasix, potassium and Mg Stopped Metformin and HCTZ Case Management Assessment/ROSA Is this call for a hospital, jail or rehab facility discharge to home? Yes [facility]: Reports: pt says she got a flu shot yesterday and feels a bit "yucky" today. BS have been up-400s. Says she was taken off her Metformin. yesterday told her to use a sliding scale for her Novolog, but didn't really get direction relating to this. Notes that over the past month has gained 20lbs. Now on Lasix, potassium and Mg Increased edema: reports less lower leg swelling Chest pain denies Increased shortness of breath: denies cough denies dyspnea with daily activities conserving device (C-PAP / BiPAP) Chills / Sweats / Fever: denies chills/sweats and denies fever Fall: denies any recent falls Appetite: denies nausea, vomiting, burning, decreased appetite Bowel: denies problems Bladder: denies problems Medications: new on Lasix, potassium and Mg. Stopped Metformin and HCTZ due to ELSIE Chronic Pain: managed O: Phone visit for ROSA 06/10/18 D/C form [facility]. Medications: meds reconciled A: Patient Centered Prioritized Goals: Pt will weigh self daily and will verbalize s/s neeidng reported to /NORMA relating to HF. Pt's BS will be managed Development of self - [...] to communicate, understand instructions, process information. P: Gas Check Pad Maker Interventions: Message sent to [place] relating to hospitalization and current elevated BS. Instructed pt in sliding scale-how to use and that need to ck BS and take Novolog per directed. Instructed in Self Management Action Plan: Instructed in HF symptom monitoring: -Weigh self daily in am, post-void and record -Report the following: ->3 lb weight gain in one day or 5 lbs in a week to PCP -increased edema in feet, abdomen or hands -increased SOB and cough, especially if at night -increased fatigue or vertigo Instructed in safety education / fall prevention PCP Notified of enrollment in CM/HM program: Yes SNP Member? No Re-evaluation of plan of care and progress towards goals achievement:pt has scale and willing to weigh self daily and verbalizes understanding of weight gain to report. Plan to call patient again this week to reassess and update plan of care, instructed to call Gas Check Pad Maker or Primary Care Provider with change in symptoms or as needed before next follow-up, verbalizes understanding and agrees with plan. Frances Nicholson RN Outpatient Gas Check Pad Maker in this encounter Plan of Treatment Upcoming Encounters Date Type Specialty Care Team Description 06/16/2018 Pharmacy Pharmacy , [facility] [address] [place] [address] [phone] Uncontrolled type 2 diabetes mellitus with stage 3 chronic kidney disease, with long-term current use of insulin (HCC)*;Type 2 diabetes mellitus with hemoglobin A1c goal of 7.0%-8.0% (HCC) 06/21/2018 Pharmacy Pharmacy , [facility] [address] [place] [address] [phone] 06/23/2018 Imaging Radiology 06/23/2018 Office Visit Cardiology Rey Woodall MD [address] [place] [address] [phone] 06/27/2018 Pharmacy Pharmacy , [facility] [address] [place] [address] [phone] 07/13/2018 Office Visit Nephrology Gia White MD [address] [place] [address] [phone] 08/01/2018 Office Visit Family Medicine Kevin Whiteside DO [address] [place] [address] [phone] 05/04/2019 Office Visit Sleep Disorders Celsa Tafoya CRNP [address] [place] [address] [phone] Health Maintenance Due Date Last Done Comments [...] Additional history exists CKD GFR USE SMARTSET 08596 12/10/201806/12, 06/05/2018, 05/16/2018, Additional history exists CKD PHOS USE SMARTSET 70514 12/29/2018 12/29/2017, 08/26/2009, 08/25/2009, Additional history exists DIABETES-FOOT EXAM 12/29/2018 12/29/2017, 0 10/21/2016, 12/11/2015, Additional history exists Yearly B-12 05/16/2019 05/16/2018 CKD HGB USE SMARTSET 18502 06/05/201906/05, 12/26/2017, 05/21/2017, Additional history exists PNEUMOCOCCAL 19-64 MEDIUM RISK Completed 08/22/2009, 06/15/2006 *DEPRESSION SCREENING, ANNUAL FOR PTS 18 AND OVER Addressed 06/12/2018 Overridden wi th the intention of not completing the topic Influenza Vaccine (FLU shot) Completed 06/12/2018, 06/12/2018, 07/14/2017, Additional history exists as of this encounter Implants Not on fileas of this encounter Visit Diagnoses Diagnosis HF (heart failure) (HCC) - P rimary Heart failure, unspecified Uncontrolled type 2 diabetes mellitus with stage 3 chronic kidney disease, with long-term current use of insulin (HCC) in this encounter
--- OUTSIDE RECORDS SUMMARY | 2023-06-01 06:01 | External Medical Summary | Summary of Care ---
Author Name Unknown Organization [place] [address] Phone Care Team Providers Care Copyholder Name Role Phone Kevin Whiteside Primary Care Provider Reason for Visit * Reason Comments TEST RESULTS Encounter Details Date Type Department Care Team Description 06/29/2018 Telephone Cardiology, [facility] [address] [place] [address] Rey Woodall MD [address] [place] [address] TEST RESULTS Allergies Active Allergy Reactions Severity Noted Date [...] of 7.0%-8.0% ([facility]) Inject 66 Units under the skin 2 [...] [place]),Hypoxemia,ELISSA (obstructive sleep apnea),HTN, goal below 130/80 Take [...] Dosing Unit 5 06/27/2018 Active Glucose Blood (Surreal InkUCH ULTRA BLUE) STRP Check sugars four times daily as directed 100 Strip 5 06/27/2018 Active as of this encounter Active Problems Problem Noted Date Acute diastolic congestive heart failure ([facility]) 06/12/2018 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[facility]) 0 06/12/2018 ELSIE (acute kidney injury) ([facility]) 06/12/20 18 Controlled substance agreement signed Body mass index (BMI) of 50.0 to 59.9 in adult ([facility]) 06/27/2017 Overview: Per Obesity protocol #1 - Per Obesity Taxonomy ICD-10 update of inactive term Uncontrolled type 2 diabetes mellitus with stage 3 chronic kidney disease, with long-term current use of insulin ([facility]) 05/24/2017 Gastroesophageal reflux disease with eso phagitis 03/04/2017 Restless legs syndrome 03/25/2016 Fibromyalgia 02/02/2016 Abnormality of gait 02/02/2016 Type 2 diabetes mellitus with hemoglobin A1c goal of 7.0%-8.0% ([facility]) 10/14/2014 Overview: ICD-10 update of inactive term [place] filter in place 08/19/2014 History of [...] mass index (BMI) of 40.0-44.9 in adult ([facility] ) 08/17/2010 05/24/2017 Obesity, morbid (more than 1 00 lbs over ideal weight or BMI > 40) ([facility]) 12/23/2009 06/30/2017 Overview: Per Obesity Taxonomy ICD-10 update of inactive term HTN, GOAL BELOW 130/80 10/22/2009 2 Overview: Per HTN Taxonomy. Pneumonia in aspergillosis ([facility]) 09/14/2009 02/15/2017 Venous thrombosis 09/14/2009 10/15/2010 Respiratory failure, acute ([facility]) 09/14/2009 02/15/2017 Spontaneous pneumothorax 09/14/2009 017 Dysuria 08/23/2009 02/15/2017 History of heparin-induced thrombocytopenia 07/2806/12/2018 Type 2 diabetes mellitus wit h hemoglobin A1c goal of less than 7.0% ([facility]) 07/10/2009 10/14/2014 Overview: Modified per Diabetes protocol #14. ICD-10 update of inactive term Dyslipidemia, goal LDL below 160 08/16/2007 09/04/2009 Overview: Per Lipid Taxonomy. HTN, goal below 140/90 04/09/2003 0 Overview: Per HTN Taxonomy. DM type 2, not at goal ([facility]) 05/29/2002 Overview: Modified per Diabetes protocol #14. [...] Miscellaneous Notes * Telephone Encounter - Migdalia Grover RN - 06/29/2018 8:26 AM EDT Spoke with pt and gave information below. Pt verbalized understanding and will comply. Order placed. * Telephone Encounter - Migdalia Grover RN - 06/29/2018 8:23 AM EDT ----- Message from Rey Woodall MD sent at 06/27/2018 1:26 PM EDT ----- Sugars are elevated, renal function is once again up slightly repeat BMP 1 month in this encounter Plan of Treatment Upcoming Encounters Date Type Specialty Care Team Description 06/30/2018 Office Visit Gastroenterology Migdalia Jacobs, DO [address] [place] [address] 07/13/2018 Pharmacy Pharmacy , [facility] [address] [facility] [address] [phone] 07/13/2018 Office Visit Nephrology Gia White MD [address] [facility] [place] [address] [phone] 07/21/2018 Office Visit Cardiology Marjorie Powell PA-C [address] [facility] [place] [address] [phone] 08/01/2018 Office Visit Family Medicine Kevin Whiteside DO [address] [place] [address] [phone] 05/04/2019 Office Visit Sleep Disorders Celsa Tafoya CRNP [address] [facility] [place] [address] [phone] Scheduled Tests Name Priority Associated Diagnoses Order S chedule BASIC METAB PANEL, BMP Routine Acute diastolic congestive heart failure (HCC) Expected: 07/30/2018 (Approximate), Expires: 07/30/2019 Health Maintenance Due Date Last Done Comments DIABETES-EYE EXAM 02/24/2011 02/24/2010 (Do ne elsewhere), 12/18/2009, 02/18/2008 (Done elsewhere) PAP SMEAR-EVERY 3 YRS,AGES 21-65 05/11/2016 05/11/2013, 03/01/2008, 10/19/2006, Additional history exists DIABETES-HGBA1C EVERY 6 MONTHS 11/01/2018 05/01/2018, 12/29/2017, 07/14/2017, Additional history exists CKD GFR USE SMARTSET 33678 12/26/201806/27, 06/12/2018, 06/05/2018, Additional history exists CKD PHOS USE SMARTSET 82024 12/29/2018 12/29/2017, 08/26/2009, 08/25/2009, Additional history exists DIABETES-FOOT EXAM 12/29/2018 12/29/2017, 0 10/21/2016, 12/11/2015, Additional history exists Yearly B-12 05/16/2019 05/16/2018 CKD HGB USE SMARTSET 78132 06/05/201906/05, 12/26/2017, 05/21/2017, Additional history exists BREAST [...] (HCC) - Primary Acute diastolic heart failure in this encounter
--- OUTSIDE RECORDS SUMMARY | 2023-06-01 06:01 | External Medical Summary | Summary of Care ---
Author Name Unknown [place] [address] Phone Care Team Providers Care National Opelint Analyst Name Role Phone Kevin Whiteside Primary Care Provider Encounter Details Date Type Department Care Team Description 06/06/2018 Result Scan Unspecified Department <No scans attached> [...] goal of 7.0%-8.0% ([facility]) Inject 66 Units under the [...] sugars twice daily as directed 100 Each 02/08/2018 Active Glucose Blood (ONETOUCH ULTRA BLUE) STRP Check sugars twice daily as directed 100 Strip 02/08/2018 Active rOPINIRole (REQUIP) 1 MG TabletIndications:Res [...] [address] Dosing Unit 11 05/16/2018 Active as of this encounter Active Problems Problem Noted Date Acute diastolic congestive heart failure ([facility]) 06/12/2018 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[facility]) 0 06/12/2018 ELSIE (acute kidney injury) ([facility]) 06/12/20 18 Controlled substance agreement signed Body mass index (BMI) of 50.0 to 59.9 in adult ([facility]) 06/27/2017 Overview: Per Obesity protocol #1 - Per Obesity Taxonomy ICD-10 update of inactive term Uncontrolled type 2 diabetes mellitus with stage 3 chronic kidney disease, with long-term current use of insulin ([facility]) 05/24/2017 Gastroesophageal reflux disease with eso phagitis 03/04/2017 Restless legs syndrome 03/25/2016 Fibromyalgia 02/02/2016 Abnormality of gait 02/02/2016 Type 2 diabetes mellitus with hemoglobin A1c goal of 7.0%-8.0% ([facility]) 10/14/2014 Overview: ICD-10 update of inactive term Vernal filter in place 08/19/2014 History of pulmonary [...] mass index (BMI) of 40.0-44.9 in adult ([facility] ) 08/17/2010 05/24/2017 Obesity, morbid (more than 1 00 lbs over ideal weight or BMI > 40) ([facility]) 12/23/2009 06/30/2017 Overview: Per Obesity Taxonomy ICD-10 update of inactive term HTN, GOAL BELOW 130/80 10/22/2009 2 Overview: Per HTN Taxonomy. Pneumonia in aspergillosis ([facility]) 09/14/2009 02/15/2017 Venous thrombosis 09/14/2009 10/15/2010 Respiratory failure, acute ([facility]) 09/14/2009 02/15/2017 Spontaneous pneumothorax 09/14/2009 017 Dysuria 08/23/2009 02/15/2017 History of heparin-induced thrombocytopenia 07/2806/12/2018 Type 2 diabetes mellitus wit h hemoglobin A1c goal of less than 7.0% ([facility]) 07/10/2009 10/14/2014 Overview: Modified per Diabetes protocol #14. ICD-10 update of inactive term Dyslipidemia, goal LDL below 160 08/16/2007 09/04/2009 Overview: Per Lipid Taxonomy. HTN, goal below 140/90 04/09/2003 0 Overview: Per HTN Taxonomy. DM type 2, not at goal ([facility]) 05/29/2002 Overview: Modified per Diabetes protocol #14. TENOSYNOVITIS FOOT-ANKLE 12/26/2001 017 Goiter 01/13/2000 06/28/2011 BACKACHE NOS 08/26/1999 05/24/2017 OBESITY, UNSPECIFIED 08/26/1999 12/23/2009 Overview: Per Obesity Taxonomy Perforation of intestine ([facility]) 0 02/15/2017 Overview: COLON Diverticulitis as of this encounter Immunizations Name Dates Previously Given Next Due Pneumococcal Polysaccharide PPV23 (Pneumovax) 08/22/2009,06/15/2006 Seasonal Influenza, Quadriva lent, No Preserve, 6 Mons & Above, IM 07/14/2017 Seasonal Influenza, Quadriva lent, No Preserve, IM [...] Not on file as of this encounter Plan of Treatment Upcoming Encounters Date Type Specialty Care Team Description 06/21/2018 [facility] [address] [facility] [address] [phone] 06/23/2018 Imaging Radiology 06/23/2018 Office Visit Cardiology Rey Woodall MD [address] [facility] [place] [address] [phone] 06/27/2018 Pharmacy Pharmacy , [facility] [address] [facility] [address] [phone] 07/13/2018 Office Visit Nephrology Gia White MD [address] [place] [address] [phone] 08/01/2018 Office Visit Family Medicine Kevin Whiteside DO [address] [place] [address] [phone] 05/04/2019 Office Visit Sleep Disorders Celsa Tafoya CRNP [address] [facility] [place] [address] [phone] Health Maintenance Due Date Last Done Comments [...] Additional history exists CKD GFR USE SMARTSET 14340 12/10/201806/12, 06/05/2018, 05/16/2018, Additional history exists CKD PHOS USE SMARTSET 65269 12/29/2018 12/29/2017, 08/26/2009, 08/25/2009, Additional history exists DIABETES-FOOT EXAM 12/29/2018 12/29/2017, 0 10/21/2016, 12/11/2015, Additional history exists Yearly B-12 05/16/2019 05/16/2018 CKD HGB USE SMARTSET 17640 06/05/201906/05, 12/26/2017, 05/21/2017, Additional history exists PNEUMOCOCCAL 19-64 MEDIUM RISK Completed 08/22/2009, 06/15/2006 *DEPRESSION SCREENING, ANNUAL FOR PTS 18 AND OVER Addressed 06/12/2018 Overridden wi th the intention of not completing the topic Influenza Vaccine (FLU shot) Completed 06/12/2018, 06/12/2018, 07/14/2017, Additional history exists as of this encounter Implants Not on fileas of this encounter Results * RADIOLOGY SCANNED RESULT (06/06/2018) in this encounter
--- OUTSIDE RECORDS SUMMARY | 2023-06-01 06:01 | External Medical Summary ---
Author Name Unknown Address [address] [place], [place] [address] Phone Organization K09:[facility] [address] [place] [address] Laboratory Report Ordering Provider Test Date Status DIMITRIGINGER PULIDO 06/27/2018 11:12:00 Final Observation Date Value Abnormality Reference Status BUN 06/27/2018 12:29 47 Above high normal 6-20 Final Creatinine 06/27/2018 12:29 1.6 Above high normal 0.5- 1.0 Final Performing Location [facility] [address] [place] [address]
--- OUTSIDE RECORDS SUMMARY | 2023-06-01 06:01 | External Medical Summary | Summary of Care ---
Author Name Unknown [place] [address] Phone Care Team Providers Care Cook Vegetable Name Role Phone Kevin Whiteside Primary Care Provider Reason for Visit * Reason Comments Dosage Adjustment Via Phone (anticoag Cl inic) DIABETES FOLLOW-UP Encounter Details Date Type Department Care Team Description 06/30/2018 Pharmacy Pharmacy, [facility] [address] [facility] [place] [address] Sp, [facility] [address] [facility] [place] [address] [phone] Uncontrolled type 2 diabetes mellitus with stage 3 chronic kidney disease, with long-term current use of insulin ([facility])*;Type 2 diabetes mellitus with hemoglobin A1c goal [...] of 7.0%-8.0% ([facility]) Inject 66 Units under the skin 2 [...] SOPNIndications:DM type 2, goal: symptom mgmt ([facility]) Inject 1.8 mg under the skin daily. [...] to 59.9 in adult ([facility]),Hypoxemia,ELISSA (obstructive sleep apnea),HTN, goal below 130/80 Take 0.5 Tabs by mouth daily. 50 Tab 3 06/23/2018 Active metoprolol tartrate (LOPRESSOR) 25 MG TabletIndications:HTN , goal below 130/80,Acute diastolic congestive heart failure (HCC),Body mass index (BMI) of 50.0 to 59.9 in adult ([facility]),Hypoxemia,ELISSA (obstructive sleep apnea),HTN, goal below 140/80 Take [...] Date Acute diastolic congestive heart failure ([facility]) 06/12/2018 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[facility]) 0 06/12/2018 ELSIE (acute kidney injury) ([facility]) 06/12/20 18 Controlled substance agreement signed Body mass index (BMI) of 50.0 to 59.9 in adult ([facility]) 06/27/2017 Overview: Per Obesity protocol #1 - Per Obesity Taxonomy ICD-10 update of inactive term Uncontrolled type 2 diabetes mellitus with stage 3 chronic kidney disease, with long-term current use of insulin ([facility]) 05/24/2017 Gastroesophageal reflux disease with eso phagitis 03/04/2017 Restless legs syndrome 03/25/2016 Fibromyalgia 02/02/2016 Abnormality of gait 02/02/2016 Type 2 diabetes mellitus with hemoglobin A1c goal of 7.0%-8.0% ([facility]) 10/14/2014 Overview: ICD-10 update of inactive term [place] filter in place 08/19/2014 History of pulmonary [...] 40.0-44.9 in adult ([facility] ) 08/17/2010 05/24/2017 Obesity, morbid (more than 1 00 lbs over ideal weight or BMI > 40) ([facility]) 12/23/2009 06/30/2017 Overview: Per Obesity Taxonomy ICD-10 update of inactive term HTN, GOAL BELOW 130/80 10/22/2009 2 Overview: Per HTN Taxonomy. Pneumonia in aspergillosis ([facility]) 09/14/2009 02/15/2017 Venous thrombosis 09/14/2009 10/15/2010 Respiratory failure, acute ([facility]) 09/14/2009 02/15/2017 Spontaneous pneumothorax 09/14/2009 017 Dysuria 08/23/2009 02/15/2017 History of heparin-induced thrombocytopenia 07/2806/12/2018 Type 2 diabetes mellitus wit h hemoglobin A1c goal of less than 7.0% ([facility]) 07/10/2009 10/14/2014 Overview: Modified per Diabetes protocol [...] encounter Progress Notes * Frances Ellis, [facility] - 06/30/2018 7:50 AM EDT Formatting of this note may be different from the original. Diabetes telephone follow - up 06/30/2018 Patient Phone Numbers - Reason for call: Patient reports high BG of 396 this morning - reports that BGs have been rising all week. - Current diabetic medications: Switch Lantus/basaglar - 66 units twice daily to Tresiba 120 units per day Victoza 1.8 mg daily Increase Novolog 15 units with breakfast, 10 units lunch, 18 units at dinner + CF 1:40 over 120 (tighten) - Glucose review/ SMBG: Breakfast: pre meal 270, 243, 253, 397 Lunch: pre 260, 286, 310 Dinner: pre 316, 349, 313 Bedtime: 429 Hypoglycemia: none. Therapy Management Assessment/Plan: 1) Diabetes: Advised patient to make sure she is drinking water. Confirmed no signs/sx of infectionthat she is aware of. No other known changes causing increased BGs. Will increase basal insulin andreinforced that patient is taking novolog with every single meal. Increase Lantus/basaglar - 70 units twice daily (plan to switch to Tresiba when supply runs out) Victoza 1.8 mg daily Novolog 15 units with breakfast, 10 units lunch, 18 units at dinner + CF 1:40 over 120 (tighten) Follow up in 3 days Frances Duong, Pharm D, BCACP Clinical Pharmacist [facility] 06/30/2018, 7:50 AM * Gina Castaneda, ELISSA - 06/30/2018 7:23 AM EDT Formatting of this note may be different from the original. Patient Phone Numbers Reporting high BS - this morning 396. Consistently running high all day long. in this encounter Plan of Treatment Upcoming Encounters Date Type Specialty Care Team Description 06/30/2018 Office Visit Gastroenterology Migdalia Jacobs, DO [address] [place] [address] [phone] 06/30/2018 Pharmacy Pharmacy , [facility] [address] [facility] [place] [address] [phone] Uncontrolled type 2 diabetes mellitus with stage 3 chronic kidney disease, with long-term current use of insulin ([facility])*;Type 2 diabetes mellitus with hemoglobin A1c goal of 7.0%-8.0% ([facility]) 07/03/2018 Pharmacy Pharmacy , [facility] [address] [facility] [place], [place] [address] [phone] 07/13/2018 Pharmacy Pharmacy , [facility] [address] [facility] [place], [place] [address] [phone] 07/13/2018 Office Visit Nephrology Gia White MD [address] [facility] [place] [phone] 07/21/2018 Office Visit Cardiology Marjorie Powell, EVIN [address] [place] [address] [phone] 08/01/2018 Office Visit Family Medicine Kevin Whiteside DO [address] [place] [address] [phone] 05/04/2019 Office Visit Sleep Disorders Celsa Tafoya CRNP [address] [place] [address] [phone] Health Maintenance Due Date Last Done Comments DIABETES-EYE EXAM 02/24/2011 02/24/2010 (Do ne elsewhere), 12/18/2009, 02/18/2008 (Done elsewhere) PAP SMEAR-EVERY 3 YRS,AGES 21-65 05/11/2016 05/11/2013, 03/01/2008, 10/19/2006, Additional history exists DIABETES-HGBA1C EVERY 6 MONTHS 11/01/2018 05/01/2018, 12/29/2017, 07/14/2017, Additional history exists CKD GFR USE SMARTSET 81497 12/26/201806/27, 06/12/2018, 06/05/2018, Additional history exists CKD PHOS USE SMARTSET 69647 12/29/2018 12/29/2017, 08/26/2009, 08/25/2009, Additional history exists DIABETES-FOOT EXAM 12/29/2018 12/29/2017, 0 10/21/2016, 12/11/2015, Additional history exists Yearly B-12 05/16/2019 05/16/2018 CKD HGB USE SMARTSET 87149 06/05/201906/05, 12/26/2017, 05/21/2017, Additional history exists BREAST [...]
--- OUTSIDE RECORDS SUMMARY | 2023-06-01 06:01 | External Medical Summary | Summary of Care ---
Author Name Unknown Organization [place] [address] Phone Care Team Providers Care Private Banker Name Role Phone Kevin Whiteside Primary Care Provider Reason for Visit * Reason Comments case management Encounter Details Date Type Department Care Team Description 06/20/2018 Telephone Internal Medicine [address] [address] Frances Nicholson RN [address] [place] [id number] case management Allergies Active Allergy Reactions [...] 7.0%-8.0% ([facility]) Inject 66 Units under the [...] Noted Date Acute diastolic congestive heart failure ([facility]) 06/12/2018 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[facility]) 0 06/12/2018 ELSIE (acute kidney injury) ([facility]) 06/12/20 18 Controlled substance agreement signed Body mass index (BMI) of 50.0 to 59.9 in adult ([facility]) 06/27/2017 Overview: Per Obesity protocol #1 - Per Obesity Taxonomy ICD-10 update of inactive term Uncontrolled type 2 diabetes mellitus with stage 3 chronic kidney disease, with long-term current use of insulin ([facility]) 05/24/2017 Gastroesophageal reflux disease with eso phagitis 03/04/2017 Restless legs syndrome 03/25/2016 Fibromyalgia 02/02/2016 Abnormality of gait 02/02/2016 Type 2 diabetes mellitus with hemoglobin A1c goal of 7.0%-8.0% ([facility]) 10/14/2014 Overview: ICD-10 update of inactive term [place] filter in place 08/19/2014 History of pulmonary [...] mass index (BMI) of 40.0-44.9 in adult ([facility] ) 08/17/2010 05/24/2017 Obesity, morbid (more than 1 00 lbs over ideal weight or BMI > 40) ([facility]) 12/23/2009 06/30/2017 Overview: Per Obesity Taxonomy ICD-10 update of inactive term HTN, GOAL BELOW 130/80 10/22/2009 2 Overview: Per HTN Taxonomy. Pneumonia in aspergillosis ([facility]) 09/14/2009 02/15/2017 Venous thrombosis 09/14/2009 10/15/2010 Respiratory failure, acute ([facility]) 09/14/2009 02/15/2017 Spontaneous pneumothorax 09/14/2009 017 Dysuria 08/23/2009 02/15/2017 History of heparin-induced thrombocytopenia 07/2806/12/2018 Type 2 diabetes mellitus wit h hemoglobin A1c goal of less than 7.0% ([facility]) 07/10/2009 10/14/2014 Overview: Modified per Diabetes protocol #14. ICD-10 update of inactive term Dyslipidemia, goal LDL below 160 08/16/2007 09/04/2009 Overview: Per Lipid Taxonomy. HTN, goal below 140/90 04/09/2003 0 Overview: Per HTN Taxonomy. DM type 2, not at goal ([facility]) 05/29/2002 Overview: Modified per Diabetes protocol #14. TENOSYNOVITIS FOOT-ANKLE 12/26/2001 017 Goiter 01/13/2000 06/28/2011 BACKACHE NOS 08/26/1999 05/24/2017 OBESITY, UNSPECIFIED 08/26/1999 12/23/2009 Overview: Per Obesity Taxonomy Perforation of intestine ([facility]) 0 02/15/2017 Overview: COLON Diverticulitis [...] Telephone Encounter - Frances Nicholson RN - 06/20/2018 2:56 PM EDT PMH: DM, HTN, SOA with CPAP, history of PE, zoraida filter in place, dyslipidemia-statin intol, GERD, Fibromyalgia, depression/anxiety New-acute diastolic HF and ELISE sent from PCP office abnormal labs and [...] Mg Stopped Metformin and HCTZ ROSA wk 2 Spoke with pt Says she is feeling OK. No increased SOB, no swelling. BS are not coming down- running 250-350 sinceoff Metformin. MTM to contact her tomorrow Weight today is 344 No chest pain No increased SOB, has C-PAP, confirmed wearing HS with O2 Denies increased edema Denies unmanaged pain Denies [...] BS >250 x 24 hours or <70 Encouraged to avoid concentrated sweets, portion ocntrol Stressed safety/fall precautions Call again this week Frances Nicholson RN, [facility] Drop Hammer Setter Up [phone] in this encounter Plan of Treatment Upcoming Encounters Date Type Specialty Care Team Description 06/21/2018 Pharmacy Pharmacy , [facility] [address] [place] [address] [phone] 06/23/2018 Imaging Radiology 06/23/2018 Office Visit Cardiology Rey Woodall MD [address] [place] [address] [phone] 06/27/2018 Pharmacy Pharmacy Sp, [facility] [address] [facility] [place] [address] [phone] 07/13/2018 Office Visit Nephrology Gia White MD [address] [place] [address] [phone] 08/01/2018 Office Visit Family Medicine Kevin Whiteside DO [address] [place] [address] [phone] 05/04/2019 Office Visit Sleep Disorders Celsa Tafoya CRNP [address] [place] [address] [phone] Health Maintenance Due Date Last Done Comments [...] Additional history exists CKD GFR USE SMARTSET 71763 12/10/201806/12, 06/05/2018, 05/16/2018, Additional history exists CKD PHOS USE SMARTSET 63934 12/29/2018 12/29/2017, 08/26/2009, 08/25/2009, Additional history exists DIABETES-FOOT EXAM 12/29/2018 12/29/2017, 0 10/21/2016, 12/11/2015, Additional history exists Yearly B-12 05/16/2019 05/16/2018 CKD HGB USE SMARTSET 95254 06/05/201906/05, 12/26/2017, 05/21/2017, Additional history exists PNEUMOCOCCAL 19-64 MEDIUM RISK Completed 08/22/2009, 06/15/2006 *DEPRESSION SCREENING, ANNUAL FOR PTS 18 AND OVER Addressed 06/12/2018 Overridden wi th the intention of not completing the topic Influenza Vaccine (FLU shot) Completed 06/12/2018, 06/12/2018, 07/14/2017, Additional history exists as of this encounter Implants Not on fileas of this encounter
--- OUTSIDE RECORDS SUMMARY | 2023-06-01 06:01 | External Medical Summary | Summary of Care ---
Author Name Unknown [place] [address] Phone Care Team Providers Care Clasp Machine Operator Name Role Phone Kevin Whiteside Primary Care Provider Reason for Visit * Reason Comments Dosage Adjustment Via Phone (anticoag Cl inic) DIABETES FOLLOW-UP Encounter Details Date Type Department Care Team Description 06/21/2018 Pharmacy Pharmacy, [facility] [address] [facility] [place] [address] Sp, [facility] [address] [facility] [place] [address] [phone] Uncontrolled type 2 diabetes mellitus with stage 3 chronic kidney disease, with long-term current use of insulin ([facility])*;Type 2 diabetes mellitus with hemoglobin A1c [...] hemoglobin A1c goal of 7.0%-8.0% (HCC) Inject 66 Units under the skin 2 [...] 10/14/2014 Overview: ICD-10 update of inactive term [place] filter in place 08/19/2014 History of pulmonary embolus (PE) 2013 Statin intolerance 07/16/2014 HTN, goal below 130/80 02/22/2014 Venous insufficiency 02/07/2013 ELISSA (obstructive sleep apnea) 09/16/2011 Overview: CPAP 11 cwp Mild, AHI 11.3 but with significant nocturnal hypoxemia Dicks Hypoxemia 07/22/2011 Overview: Nocturnal ox 2 LPM 07/20/11 -- mean 84%, low 76%, time <89% 6:21 hours, TINY [address] [facility] Postsurgical hypothyroidism 06/16/2011 Depression with anxiety [...] type 2, not at goal ([facility]) 05/29/2002 Overview: Modified per Diabetes protocol [...] this encounter Progress Notes * Frances Ellis, [facility] - 06/21/2018 4:29 PM EDT Formatting of this note may be different from the original. Diabetes telephone follow - up 06/21/18 Patient Phone Numbers - Reason for call: Spoke to patient, BGs still elevated but coming down. Has been using sliding scale. - Current diabetic medications: Lantus - 66 units twice daily Victoza 1.8 mg daily discontinued during inpatient stay due to ELSIE Increase Novolog 5 units with breakfast, 8 units lunch, 12 units at dinner + CF 2:50 over 100 (new) SMBG: Patient reports that blood sugars are still high but is not home to check exact numbers. Reports low of 209, high over 300. Therapy Management Assessment/Plan: 1) Diabetes: Patient's BGs still elevated, will increase mealtime Novolog and follow up with patient in 1 week. Lantus/basaglar - 66 units twice daily Victoza 1.8 mg daily discontinued during inpatient stay due to ELSIE Increase Novolog 10 units with breakfast, 10 units lunch, 15 units at dinner + CF 2:50 over 100 (new) Follow up in 1 week in clinic. Frances Duong, Pharm D, BCACP Clinical Pharmacist Medication Therapy Management [facility] 06/21/2018 4:33 PM in this encounter Plan of Treatment Upcoming Encounters Date Type Specialty Care Team Description 06/23/2018 Imaging Radiology 06/23/2018 Office Visit Cardiology Rey Woodall MD [address] [place] [address] [phone] 06/27/2018 Pharm[facility] Pharmacy , [facility] [address] [facility] [address] [phone] 07/13/2018 [facility] [place] [phone] 08/01/2018 Office Visit Family Medicine Kevin Whiteside DO [address] [place] [address] [phone] 05/04/2019 Office Visit Sleep Disorders Celsa Tafoya CRNP [address] [place] [address] [phone] Health Maintenance Due Date Last Done Comments [...] Additional history exists CKD GFR USE SMARTSET 04887 12/10/201806/12, 06/05/2018, 05/16/2018, Additional history exists CKD PHOS USE SMARTSET 26970 12/29/2018 12/29/2017, 08/26/2009, 08/25/2009, Additional history exists DIABETES-FOOT EXAM 12/29/2018 12/29/2017, 0 10/21/2016, 12/11/2015, Additional history exists Yearly B-12 05/16/2019 05/16/2018 CKD HGB USE SMARTSET 29605 06/05/201906/05, 12/26/2017, 05/21/2017, Additional history exists PNEUMOCOCCAL [...]
--- OUTSIDE RECORDS SUMMARY | 2023-06-01 06:01 | External Medical Summary | Summary of Care ---
Author Name Unknown [place] [address] Phone Care Team Providers Care Finishing Trimmer Name Role Phone Kevin Whiteside Primary Care Provider Encounter Details Date Type Department Care Team Description 06/06/2018 Scan Encounter Unspecified Department <No scans attached> [...] 7.0%-8.0% ([facility]) Inject 66 Units under the skin [...] Acute diastolic congestive heart failure ([facility]) 06/12/2018 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[facility]) 0 06/12/2018 ELSIE (acute kidney injury) ([facility]) 06/12/20 18 Controlled substance agreement signed Body mass index (BMI) of 50.0 to 59.9 in adult ([facility]) 06/27/2017 Overview: Per Obesity protocol #1 - Per Obesity Taxonomy ICD-10 update of inactive term Uncontrolled type 2 diabetes mellitus with stage 3 chronic kidney disease, with long-term current use of insulin ([facility]) 05/24/2017 Gastroesophageal reflux disease with eso phagitis 03/04/2017 Restless legs syndrome 03/25/2016 Fibromyalgia 02/02/2016 Abnormality of gait 02/02/2016 Type 2 diabetes mellitus with hemoglobin A1c goal of 7.0%-8.0% ([facility]) 10/14/2014 Overview: ICD-10 update of inactive [...] of 40.0-44.9 in adult ([facility] ) 08/17/2010 05/24/2017 Obesity, morbid (more than 1 00 lbs over ideal weight or BMI > 40) ([facility]) 12/23/2009 06/30/2017 Overview: Per Obesity Taxonomy ICD-10 update of inactive term HTN, GOAL BELOW 130/80 10/22/2009 2 Overview: Per HTN Taxonomy. Pneumonia in aspergillosis ([facility]) 09/14/2009 02/15/2017 Venous thrombosis 09/14/2009 10/15/2010 Respiratory failure, acute ([facility]) 09/14/2009 02/15/2017 Spontaneous pneumothorax 09/14/2009 017 Dysuria 08/23/2009 02/15/2017 History of heparin-induced thrombocytopenia 07/2806/12/2018 Type 2 diabetes mellitus wit h hemoglobin A1c goal of less than 7.0% ([facility]) 07/10/2009 10/14/2014 Overview: Modified per Diabetes protocol #14. ICD-10 update of inactive term Dyslipidemia, goal LDL below 160 08/16/2007 09/04/2009 Overview: Per Lipid Taxonomy. HTN, goal below 140/90 04/09/2003 0 Overview: Per HTN Taxonomy. DM type 2, not at goal ([facility]) 05/29/2002 Overview: Modified per Diabetes protocol #14. TENOSYNOVITIS FOOT-ANKLE 12/26/2001 017 Goiter 01/13/2000 06/28/2011 BACKACHE NOS 08/26/1999 05/24/2017 OBESITY, UNSPECIFIED 08/26/1999 12/23/2009 Overview: Per Obesity Taxonomy Perforation of intestine ([facility]) 0 02/15/2017 Overview: COLON Diverticulitis as [...] Care Team Description 06/21/2018 Pharmacy Pharm[facility] , [facility] [address] [phone] 06/23/2018 Imaging Radiology 06/23/2018 Office Visit Cardiology Rey Woodall MD [address] [facility] [place] [address] [phone] 06/27/2018 Pharmacy Pharmacy , [facility] [address] [facility] [address] [phone] 07/13/2018 Office Visit Nephrology Gia White MD [address] [place] [address] [phone] 08/01/2018 Office Visit Family Medicine Kevin Whiteside DO [address] [place] [address] [phone] 05/04/2019 Office Visit Sleep Disorders Celsa Tafoya CRNP [address] [facility] [place] [address] [phone] Health Maintenance Due Date Last Done Comments [...] Additional history exists CKD GFR USE SMARTSET 28881 12/10/201806/12, 06/05/2018, 05/16/2018, Additional history exists CKD PHOS USE SMARTSET 36042 12/29/2018 12/29/2017, 08/26/2009, 08/25/2009, Additional history exists DIABETES-FOOT EXAM 12/29/2018 12/29/2017, 0 10/21/2016, 12/11/2015, Additional history exists Yearly B-12 05/16/2019 05/16/2018 CKD HGB USE SMARTSET 93835 06/05/201906/05, 12/26/2017, 05/21/2017, Additional history exists PNEUMOCOCCAL 19-64 MEDIUM RISK Completed 08/22/2009, 06/15/2006 *DEPRESSION SCREENING, ANNUAL FOR PTS 18 AND OVER Addressed 06/12/2018 Overridden wi th the intention of not completing the topic Influenza Vaccine (FLU shot) Completed 06/12/2018, 06/12/2018, 07/14/2017, Additional history exists as of this encounter Implants Not on fileas of this encounter
--- OUTSIDE RECORDS SUMMARY | 2023-06-01 06:01 | External Medical Summary | Summary of Care ---
Author Name Unknown Organization [place] [address] Phone Care Team Providers Care Features Reporter Name Role Phone Kevin Whiteside Primary Care Provider Reason for Visit * Reason Comments ADVICE Encounter Details Date Type Department Care Team Description 06/30/2018 [facility], [facility] [address] [facility] [address] Rey Woodall MD [address] [place] [address] Acute diastolic congestive heart failure (HCC)* [...] of 7.0%-8.0% ([facility]) Inject 66 Units under the skin [...] Acute diastolic congestive heart failure ([facility]) 06/12/2018 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[facility]) [...] 76%, time <89% 6:21 hours, [facility] Postsurgical hypothyroidism 06/16/2011 Depression with anxiety [...] Telephone Encounter - Rey Woodall MD - 06/30/2018 11:56 AM EDT Increase furosemide as directed 80 mg per day for 3 days and recontact office for further advice * Telephone Encounter - Rey Woodall MD - 06/30/2018 11:55 AM EDT Signed Prescriptions: Disp Refills furosemide (LASIX) 40 MG Tablet 35 Tab 5 Sig: Take 1 Tab by mouth daily. Take 1 extra tab today, Tuesday and Tuesday, then return to 1 tablet daily Authorizing Provider: REY WOODALL * Telephone Encounter - Chrystal Deng LPN - 06/30/2018 11:11 AM EDT 3 lb weight gain overnight, c/o sob Pt aware of medication change. Updated prescription pended. in this encounter Plan of Treatment Upcoming Encounters Date Type Specialty Care Team Description 06/30/2018 Pharmacy Pharmacy Sp, [facility] [address] [place] [address] [phone] Uncontrolled type 2 diabetes mellitus with stage 3 chronic kidney disease, with long-term current use of insulin ([facility])*;Type 2 diabetes mellitus with hemoglobin A1c goal of 7.0%-8.0% ([facility]) 07/03/2018 Pharmacy Pharmacy Sp, [facility] [address] [place] [address] [phone] 07/13/2018 Pharmacy Pharmacy Sp, [facility] [address] [place] [address] [phone] 07/13/2018 Office Visit Nephrology Gia White MD [address] [facility] [place] [address] [phone] 07/21/2018 Office Visit Cardiology Marjorie Powell PA-C [address] [place] [address] [phone] 08/01/2018 Office Visit Family Medicine Kevin Whiteside DO [address] [address] [address] [phone] 08/29/2018 Office Visit Gastroenterology Migdalia Jacobs DO [address] [facility] [facility] [address] [phone] 05/04/2019 Office Visit Sleep Disorders [facility]elsa [facility]oya CR[facility] [place] [address] [phone] Health Maintenance Due Date Last Done Comments DIABETES-EYE EXAM 02/24/2011 02/24/2010 (Do ne elsewhere), 12/18/2009, 02/18/2008 (Done elsewhere) PAP SMEAR-EVERY 3 YRS,AGES 21-65 05/11/2016 05/11/2013, 03/01/2008, 10/19/2006, Additional history exists DIABETES-HGBA1C EVERY 6 MONTHS 11/01/2018 05/01/2018, 12/29/2017, 07/14/2017, Additional history exists CKD GFR USE SMARTSET 34552 12/26/201806/27, 06/12/2018, 06/05/2018, Additional history exists CKD PHOS USE SMARTSET 16282 12/29/2018 12/29/2017, 08/26/2009, 08/25/2009, Additional history exists DIABETES-FOOT EXAM 12/29/2018 12/29/2017, 0 10/21/2016, 12/11/2015, Additional history exists Yearly B-12 05/16/2019 05/16/2018 CKD HGB USE SMARTSET 50351 06/05/201906/05, 12/26/2017, 05/21/2017, Additional history exists BREAST [...]
--- OUTSIDE RECORDS SUMMARY | 2023-06-01 06:01 | External Medical Summary | Summary of Care ---
Author Name Unknown Organization [place] [address] Phone Care Team Providers Care Sales Porter Name Role Phone Kevin Whiteside Primary Care [...] HTN, goal below 140/80 Rey Woodall MD [address] [place] [address] Reason for Visit * Reason Comments CONSULTATION * Evaluate & Treat - Unlimited Visits (Within 10 days (routine)) Status Reason Specialty Diagnoses / Procedures Referred By Contact Referred To Contact Authorized Specialty Services Required Cardiovascular Medicine Diagnoses Acute diastolic congestive heart failure (HCC) Sanjiv Tolliver DO [address] [place] [address] Encounter Details Date Type Department Care Team Description 06/23/2018 Office Visit Cardiology, [facility] [address] [address] Rey Woodall MD [address] [place] [address] [phone] Acute diastolic congestive heart failure (HCC)*;Body mass index (BMI) of 50.0 to 59.9 in adult (HCC);Hypoxemia;ELISSA (obstructive sleep apnea);HTN, goal below 130/80;HTN, goal below 140/80 Allergies Active Allergy Reactions [...] 7.0%-8.0% ([facility]) Inject 66 Units under the [...] type 2, goal: symptom mgmt ([facility]) Inject 1.8 mg under the [...] a day. 120 Tab 11 06/23/2018 Active lisinopril (PRINIVIL) 10 MG TabletIndications:H TN, goal below 140/80 TAKE ONE TABLET BY MOUTH DAILY 90 Tab 3 04/11/2018 8 Discontinued metoprolol tartrate (LOPRESSOR) 25 MG TabletIndications:H TN, goal below 130/80 TAKE ONE TABLET BY MOUTH TWICE DAILY 60 Tab 11 04/25/2018 8 Discontinued Potassium Chloride Ayleen ER 20 MEQ TBCR 06/10/2018 06/23/20 1 8 Discontinued as of this encounter Active Problems Problem Noted Date Acute diastolic congestive heart failure ([facility]) 06/12/2018 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[facility]) 0 06/12/2018 ELSIE (acute kidney injury) ([facility]) 06/12/20 18 Controlled substance agreement signed Body mass index (BMI) of 50.0 to 59.9 in adult ([facility]) 06/27/2017 Overview: Per Obesity protocol #1 - Per Obesity Taxonomy ICD-10 update of inactive term Uncontrolled type 2 diabetes mellitus with stage 3 chronic kidney disease, with long-term current use of insulin ([facility]) 05/24/2017 Gastroesophageal reflux disease with eso phagitis 03/04/2017 Restless legs syndrome 03/25/2016 Fibromyalgia 02/02/2016 Abnormality of gait 02/02/2016 Type 2 diabetes mellitus with hemoglobin A1c goal of 7.0%-8.0% ([facility]) 10/14/2014 Overview: ICD-10 update of [...] (BMI) of 40.0-44.9 in adult ([facility] ) 08/17/2010 05/24/2017 Obesity, morbid (more than 1 00 lbs over ideal weight or BMI > 40) ([facility]) 12/23/2009 06/30/2017 Overview: Per Obesity Taxonomy ICD-10 update of inactive term HTN, GOAL BELOW 130/80 10/22/2009 2 Overview: Per HTN Taxonomy. Pneumonia in aspergillosis ([facility]) 09/14/2009 02/15/2017 Venous thrombosis 09/14/2009 10/15/2010 Respiratory failure, acute ([facility]) 09/14/2009 02/15/2017 Spontaneous pneumothorax 09/14/2009 017 Dysuria 08/23/2009 02/15/2017 History of heparin-induced thrombocytopenia 07/2806/12/2018 Type 2 diabetes mellitus wit h hemoglobin A1c goal of less than 7.0% ([facility]) 07/10/2009 10/14/2014 Overview: Modified per Diabetes protocol #14. ICD-10 update of inactive term Dyslipidemia, goal LDL below 160 08/16/2007 09/04/2009 Overview: Per Lipid Taxonomy. HTN, goal below 140/90 04/09/2003 0 Overview: Per HTN Taxonomy. DM type 2, not at goal ([facility]) 05/29/2002 Overview: Modified per Diabetes protocol #14. TENOSYNOVITIS FOOT-ANKLE 12/26/2001 017 Goiter 01/13/2000 06/28/2011 BACKACHE NOS 08/26/1999 05/24/2017 OBESITY, UNSPECIFIED 08/26/1999 12/23/2009 Overview: Per Obesity Taxonomy Perforation of intestine ([facility]) 0 02/15/2017 Overview: COLON Diverticulitis [...] Vital Sign Reading Time Taken Blood Pressure 142/76 06/23/2018 9:51 AM EDT Pulse 112 06/23/2018 9:51 AM EDT Temperature - - Respiratory Rate 20 06/23/2018 9:51 AM EDT Oxygen Saturation - - Inhaled Oxygen Concentration - - Weight 154.7 kg (341 lb) 06/23/2018 9:5 1 AM EDT Height - - Body Mass Index 58.53 06/23/2018 9:51 AM EDT in this encounter Progress Notes * Rey Woodall MD - 06/23/2018 10:20 AM EDT See dictated note on 06/23/2018 Rey Woodall MD in this encounter Nursing Notes * Chrystal Deng LPN - 06/23/2018 9:50 AM EDT Examination Room: 17 Name: Stephanie Camp Date of : (1955). Reason for Visit: new patient Interim Hospitalization(s): 06/06/2018 SOB/CHF Problems/Concerns: feeling "bloated" and increased SOB since hospital d/c Chest Pain/SOB: denies CP [facility] is a way you can talk to your provider online through e-mail. Would you like to sign up? I can activate it for you? NO in this encounter Plan of Treatment Upcoming Encounters Date Type Specialty Care Team Description 06/27/2018 Pharmacy Pharmacy Sp, [facility] [address] [facility] [place] [address] [phone] 06/29/2018 Office Visit Gastroenterology Migdalia Jacobs DO [address] [facility] [id number] 07/13/2018 Office Visit Nephrology Gia White MD [address] [facility] [place] [address] [phone] 07/21/2018 Office Visit Cardiology Marjorie Powell PA-C [address] [facility] [place] [address] [phone] 08/01/2018 Office Visit Family Medicine Kevin Whiteside DO [address] [place] [address] [phone] 05/04/2019 Office Visit Sleep Disorders Celsa Tafoya CRNP [address] [facility] [place] [address] [phone] Scheduled Tests Name Priority Associated Diagnoses Order S chedule BASIC METAB PANEL, BMP Routine Acute diastolic congestive heart failure (HCC) Body mass index (BMI) of 50.0 to 59.9 in adult (HCC) Hypoxemia ELISSA (obstructive sleep apnea) HTN, goal below 130/80 HTN, goal below 140/80 Expected: 06/30/2018, Expires: 07/23/2019 Scheduled Referrals Name Priority Associated Diagnoses Order S chedule GI NUTRITION REFERRAL OP Within 10 days (routine) Acute diastolic congestive heart failure (HCC) Body mass index (BMI) of 50.0 to 59.9 in adult (HCC) Hypoxemia ELISSA (obstructive sleep apnea) HTN, goal below 130/80 HTN, goal below 140/80 Ordered: 06/23/2018 Health Maintenance Due Date Last Done Comments [...] Additional history exists CKD GFR USE SMARTSET 33798 12/10/201806/12, 06/05/2018, 05/16/2018, Additional history exists CKD PHOS USE SMARTSET 60446 12/29/2018 12/29/2017, 08/26/2009, 08/25/2009, Additional history exists DIABETES-FOOT EXAM 12/29/2018 12/29/2017, 0 10/21/2016, 12/11/2015, Additional history exists Yearly B-12 05/16/2019 05/16/2018 CKD HGB USE SMARTSET 69864 06/05/201906/05, 12/26/2017, 05/21/2017, Additional history exists PNEUMOCOCCAL [...] (HCC) - Primary Acute diastolic heart failure Body mass index (BMI) of 50. 0 to 59.9 in adult (HCC) Hypoxemia ELISSA (obstructive sleep apnea ) Obstructive sleep apnea (adult) (pediatric) HTN, goal below 130/80 Unspecified essential hypertension HTN, goal below 140/80 Unspecified essential hypertension in this encounter
--- OUTSIDE RECORDS SUMMARY | 2023-06-01 06:01 | External Medical Summary | Summary of Care ---
Author Name Unknown Organization [place] [address] Phone Care Team Providers Care Care Nurse Rn Name Role Phone Kevin Whiteside Primary Care Provider Reason for Visit * Reason Comments ADVICE Encounter Details Date Type Department Care Team Description 06/13/2018 Telephone Internal Medicine [address] [address] Frances Nicholson, RN [address] [place] [address] ADVICE Allergies Active Allergy Reactions Severity [...] Noted Date Acute diastolic congestive heart failure ([facility]) 06/12/2018 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[facility]) [...] Overview: Per Obesity Taxonomy Perforation of intestine ([facility]) 0 02/15/2017 Overview: COLON Diverticulitis [...] Telephone Encounter - Frances Nicholson RN - 06/13/2018 2:45 PM EDT Pt had been admitted to [facility] and discharged to home on 06/[address] [facility], her Metformin was stopped Spoke with pt today and BS are running in the 400s She saw Dr Tolliver yesterday and he advised a sliding scale for her Novolog Pt taking Lantus 66 untis BID Please advise Thanks, Frances Nicholson RN, [facility] Technical Sales Director [phone] in this encounter Plan of Treatment Upcoming Encounters Date Type Specialty Care Team Description 06/16/2018 Pharmacy Pharmacy Sp, [facility] [address] [place] [address] [phone] Uncontrolled type 2 diabetes mellitus with stage 3 chronic kidney disease, with long-term current use of insulin ([facility])*;Type 2 diabetes mellitus with hemoglobin A1c goal of 7.0%-8.0% ([facility]) 06/21/2018 Pharmacy Pharmacy Sp, [facility] [address] [facility] [place] [address] [phone] 06/23/2018 Imaging Radiology 06/23/2018 Office Visit Cardiology Rey Woodall MD [address] [place] [address] [phone] 06/27/2018 Pharmacy Pharmacy , [facility] [address] [place] [address] [phone] 07/13/2018 Office Visit Nephrology Gia White MD [address] [facility] [place] [address] [phone] 08/01/2018 Office Visit Family Medicine Kevin Whiteside DO [address] [address] [phone] 05/04/2019 Office Visit Sleep Disorders Celsa Tafoya CRNP [address] [place] [address] [phone] Health Maintenance Due Date Last Done Comments [...] Additional history exists CKD GFR USE SMARTSET 30405 12/10/201806/12, 06/05/2018, 05/16/2018, Additional history exists CKD PHOS USE SMARTSET 16232 12/29/2018 12/29/2017, 08/26/2009, 08/25/2009, Additional history exists DIABETES-FOOT EXAM 12/29/2018 12/29/2017, 0 10/21/2016, 12/11/2015, Additional history exists Yearly B-12 05/16/2019 05/16/2018 CKD HGB USE SMARTSET 61294 06/05/201906/05, 12/26/2017, 05/21/2017, Additional history exists PNEUMOCOCCAL 19-64 MEDIUM RISK Completed 08/22/2009, 06/15/2006 *DEPRESSION SCREENING, ANNUAL FOR PTS 18 AND OVER Addressed 06/12/2018 Overridden wi th the intention of not completing the topic Influenza Vaccine (FLU shot) Completed 06/12/2018, 06/12/2018, 07/14/2017, Additional history exists as of this encounter Implants Not on fileas of this encounter
--- OUTSIDE RECORDS SUMMARY | 2023-06-01 06:01 | External Medical Summary | Summary of Care ---
Author Name Unknown Organization [place] [address] Phone Care Team Providers Care Ground Support Equipment Mechanic Name Role Phone Kevin Whiteside Primary Care Provider Reason for Visit * Reason Comments Dosage Adjustment In Person (Anticoag Cl inic) DIABETES FOLLOW-UP Encounter Details Date Type Department Care Team Description 06/27/2018 Pharmacy Pharmacy, [facility] [address] [place] [address] Sp, [facility] [address] [place] [address] [phone] Uncontrolled type 2 diabetes mellitus with stage 3 chronic kidney disease, with long-term current use of insulin ([facility])*;Type 2 diabetes mellitus with hemoglobin A1c goal of 7.0%-8.0% ([facility]) Allergies Active Allergy Reactions [...] goal of 7.0%-8.0% ([facility]) Inject 66 Units under the skin [...] MG/3ML SOPNIndications:DM type 2, goal: symptom mgmt ([facility]) Inject 1.8 mg under the skin daily. As directed 3 Pre-filled Pen Syringe Dosing Unit 11 02/08/2018 Active ONETOUCH DELICA LANCETS 33G [facility] Check blood sugars twice daily as directed [...] as directed 100 Strip 5 06/27/2018 Active Glucose Blood (ONETOUCH ULTRA BLUE) STRP Check sugars twice daily as directed 100 Strip 5 02/08/2018 8 Discontinued insulin aspart (NOVOLOG FLEXPEN) 100 UNIT/ML SOPN Inject 5 units breakfast and lunch and 10 units with dinner or as directed up to 50 units per day 5 Pre-filled Pen Syringe Dosing Unit 5 05/16/2018 8 Discontinued as of this encounter Active Problems Problem Noted Date Acute diastolic congestive heart failure (HCC) 06/12/2018 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[facility]) 0 06/12/2018 ELSIE (acute kidney injury) ([facility]) 06/12/20 18 Controlled substance agreement signed Body mass index (BMI) of 50.0 to 59.9 in adult ([facility]) 06/27/2017 Overview: Per Obesity protocol #1 - Per Obesity Taxonomy ICD-10 update of inactive term Uncontrolled type 2 diabetes mellitus with stage 3 chronic kidney disease, with long-term current use of insulin ([facility]) 05/24/2017 Gastroesophageal reflux disease with eso phagitis 03/04/2017 Restless legs syndrome 03/25/2016 Fibromyalgia 02/02/2016 Abnormality of gait 02/02/2016 Type 2 diabetes mellitus with hemoglobin A1c goal of 7.0%-8.0% ([facility]) 10/14/2014 Overview: ICD-10 update of inactive term [place] filter in place 08/19/2014 History of pulmonary [...] mass index (BMI) of 40.0-44.9 in adult ([facility] ) 08/17/2010 05/24/2017 Obesity, morbid (more than 1 00 lbs over ideal weight or BMI > 40) ([facility]) 12/23/2009 06/30/2017 Overview: Per Obesity Taxonomy ICD-10 update of inactive term HTN, GOAL BELOW 130/80 10/22/2009 2 Overview: Per HTN Taxonomy. Pneumonia in aspergillosis ([facility]) 09/14/2009 02/15/2017 Venous thrombosis 09/14/2009 10/15/2010 Respiratory failure, acute ([facility]) 09/14/2009 02/15/2017 Spontaneous pneumothorax 09/14/2009 017 Dysuria 08/23/2009 02/15/2017 History of heparin-induced thrombocytopenia 07/2806/12/2018 Type 2 diabetes mellitus wit h hemoglobin A1c goal of less than 7.0% ([facility]) 07/10/2009 10/14/2014 Overview: Modified per Diabetes protocol #14. ICD-10 update of inactive term Dyslipidemia, goal LDL below 160 08/16/2007 09/04/2009 Overview: Per Lipid Taxonomy. HTN, goal below 140/90 04/09/2003 0 Overview: Per HTN Taxonomy. DM type 2, not at goal ([facility]) 05/29/2002 Overview: Modified per Diabetes protocol #14. TENOSYNOVITIS FOOT-ANKLE 12/26/2001 017 Goiter 01/13/2000 06/28/2011 BACKACHE NOS 08/26/1999 05/24/2017 OBESITY, UNSPECIFIED 08/26/1999 12/23/2009 Overview: Per Obesity Taxonomy Perforation of intestine ([facility]) 0 02/15/2017 Overview: COLON Diverticulitis as [...] [facility], [facility] - 06/27/2018 10:35 AM EDT Formatting of this note may be different from the original. Medication Therapy Disease Management Diabetes Interval History: Stephanie Camp is an 63 year old year old female returning to the [facility] for a diabetes follow-up appointment. Blood glucose control since last visit: worse since being off metformin Medication intolerance: yes; jardiance - yeast infection Medication compliance: yes - but off metformin due to ELSIE Hospitalization or ED Utilization since last visit: yes; ELSIE and pneumonia/elevated troponins Hypoglycemia requiring assistance since last visit: no Symptoms of hyperglycemia or hypoglycemia present today: no Diet: Breakfast: PB on 2 pieces of toast + 1/2 banana, yogurt + 2 poptarts Lunch: skipping sometimes, when she does eat - having sandwich with meat and cheese or soup with raw vegetables, or sweet kale salad Dinner: chicken + instant mashed potatoes + frozen veg (broccoli, singaporean mixed veg) Exercise: none - trouble with back and legs Current Diabetes Medications: Lantus/basaglar - 66 units twice daily Victoza 1.8 mg daily discontinued during inpatient stay due to ELSIE Increase Novolog 10 units with breakfast, 10 units lunch, 15 units at dinner + CF 2:50 over 100 (new) Self-Monitoring Blood Glucose Review: Patient currently tests blood glucose 3 time(s) daily Pre am Pre Lunch Pre pm 06/27 220 268 273 271 324 288 206 347 191 261 252 205 285 389 297 265 390 232 296 347 219 300 360 309 318 255 265 296 329 233 270 281 381 276 194 9/16 276 Average 254 317 300 Hi 309 389 390 Lo [address] 254[address]2 [phone] Range 115 137 199 Hypoglycemia: 1. Do you know what the [...] current use of insulin ([facility]) E11.22, E11.65, N18.3, Z79.4 Body mass index (BMI) of 50.0 to 59.9 in adult ([facility]) Z68.43 Controlled substance agreement signed Z79.899 Acute diastolic congestive heart failure ([facility]) I50.31 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[facility]) D75.82 ELSIE (acute kidney injury) ([facility]) N17.9 Review of patient's allergies indicates: Allergen Reactions Jardiance [Empagliflozin] Other (Please comment) 3 yeast infections in 6 weeks after starting Heparin Heparin Induced Thrombocytopenia Morphine And Related Hallucinations Tetanus Toxoid Other (Please comment) Passed out Current Outpatient Prescriptions Medication Sig Dispense Refill lisinopril (PRINIVIL) 10 MG Tablet Take 0.5 Tabs by mouth daily. 50 Tab 3 metoprolol tartrate (LOPRESSOR) 25 MG Tablet Take 2 Tabs by mouth 2 times a day. 120 Tab 11 furosemide (LASIX) 40 MG Tablet MAG64 64 MG TBEC sertraline (ZOLOFT) 100 MG Tablet TAKE ONE AND ONE-HALF TABLETS BY MOUTH DAILY 135 Tab 1 insulin aspart (NOVOLOG FLEXPEN) 100 UNIT/ML SOPN Inject 5 units breakfast and lunch and 10 units with dinner or as directed up to 50 units per day 5 Pre- filled Pen Syringe Dosing Unit 5 Insulin Pen Needle (BD [...] BY MOUTH AT BEDTIME 30 Tab 4 Glucose Blood (ONETOUCH ULTRA BLUE) STRP Check sugars twice daily as directed 100 Strip 5 liraglutide (VICTOZA) 18 MG/3ML SOPN Inject [...] 2 Pre-filled Pen Syringe Dosing Unit 11 docusate sodium (STOOL SOFTENER) 100 MG Capsule Take 100 mg by mouth 2 times a day as needed for Constipation. oxygen GAS 4 LPM bled through CPAP 11 cwp during all periods of sleep. 1 Each 0 PRILOSEC 20 MG PO CPDR one tablet daily Objective: The ASCVD Risk score (Freddy ANDREAS Jr, et al., 2013) failed to calculate for the following reasons: Cannot find a previous HDL lab Cannot find a previous total cholesterol lab Estimated body mass index is 58.53 kg/(m^2) as calculated from the following: Height as of 06/12/18: 1.626 m (5' 4"). Weight as of 06/23/18: 154.7 kg (341 lb). BP Readings from Last 3 Encounters: 06/23/18 142/76 06/12/18 130/80 06/05/18 150/76 No POC orders found HEMOGLOBIN, A1C(%) Nessa Dt/Tm Resulted Value Status 05/01/18 9:12A 05/01/18 10.0* FINAL 12/29/17 12:43P 12/29/17 11.6* FINAL 07/14/17 12:35P 07/14/17 9.3* FINAL MICROALBUMIN RATIO(mg/g creat) Nessa Dt/Tm Resulted Value Status 05/01/18 9:13A 05/01/18 <18 FINAL 03/03/17 12:37P 03/03/17 <15 FINAL 06/24/16 3:28P 06/24/16 <12 FINAL BASIC METAB PANEL, BMP Nessa Dt/Tm Resulted Value Status BUN (mg/dL) 06/12/18 2:14P 06/12/18 35* F CREATININE (mg/dL) 06/12/18 2:14P 06/12/18 1.3* F E GLOM FILT RATE ( ) 06/12/18 2:14P 06/12/18 42.4* F SODIUM (mmol/L) 06/12/18 2:14P 06/12/18 138 F POTASSIUM (mmol/L) 06/12/18 2:14P 06/12/18 4.9 F CHLORIDE (mmol/L) 06/12/18 2:14P 06/12/18 96* F CO2 (mmol/L) 06/12/18 2:14P 06/12/18 27 F ANION GAP (mmol/L) 06/12/18 2:14P 06/12/18 15 F GLUCOSE (mg/dL) 06/12/18 2:14P 06/12/18 258* F CALCIUM (mg/dL) 06/12/18 2:14P 06/12/18 9.3 F ALT(U/L) Nessa Dt/Tm Resulted Value Status 12/29/17 12:43P 12/29/17 40* FINAL LDL (DIRECT MEASURE)(mg/dL) Nessa Dt/Tm Resulted Value Status 07/14/17 12:35P 07/14/17 109 FINAL CREATININE(mg/dL) Nessa Dt/Tm Resulted Value Status 06/27/18 11:12A 06/27/18 1.6* FINAL 06/12/18 2:14P 06/12/18 1.3* FINAL 06/05/18 11:49A 06/05/18 1.1* FINAL Assessment & Plan: Glycemic control is stable but not at goal. Patient agreeable to adjust medications as noted below. Wanted to get patient back on Metformin, but serum creatinine today is even worse than 1 month ago with ELSIE. Will continue to hold. Patient is agreeable to SMBG 3-4 time(s) daily. Patient aware to contact clinic if any hypoglycemia before next visit. Reviewed rule of 15s. Diabetes Medications: Switch Lantus/basaglar - 66 units twice daily to Tresiba 120 units per day Victoza 1.8 mg daily Increase Novolog 15 units with breakfast, 10 units lunch, 18 units at dinner + CF 1:40 over 120 (tighten) Diabetes Health Maintenance: due for eye exam - aware Return to clinic: 2 week(s) Frances Huerta [facility] Clinical Pharmacist Medication Therapy Disease Management 06/27/2018, 10:35 AM in this encounter Plan of Treatment Upcoming Encounters Date Type Specialty Care Team Description 06/30/2018 Office Visit Gastroenterology Migdalia Jacobs DO [address] [place] [address] 07/13/2018 Pharmacy Pharmacy , [facility] [address] [facility], [place] [address] [phone] 07/13/2018 Office Visit Nephrology Gia White MD [address] [facility] [place] [address] [phone] 07/21/2018 Office Visit Cardiology Marjorie Powell PA-C [address] [place] [address] [phone] 08/01/2018 Office Visit Family Medicine Kevin Whiteside DO [address] [place] [address] [phone] 05/04/2019 Office Visit Sleep Disorders Celsa Tafoya CRNP [address] [place] [address] [phone] Health Maintenance Due Date Last Done Comments DIABETES-EYE EXAM 02/24/2011 02/24/2010 (Do ne elsewhere), 12/18/2009, 02/18/2008 (Done elsewhere) PAP SMEAR-EVERY 3 YRS,AGES 21-65 05/11/2016 05/11/2013, 03/01/2008, 10/19/2006, Additional history exists DIABETES-HGBA1C EVERY 6 MONTHS 11/01/2018 05/01/2018, 12/29/2017, 07/14/2017, Additional history exists CKD GFR USE SMARTSET 35190 12/26/201806/27, 06/12/2018, 06/05/2018, Additional history exists CKD PHOS USE SMARTSET 70104 12/29/2018 12/29/2017, 08/26/2009, 08/25/2009, Additional history exists DIABETES-FOOT EXAM 12/29/2018 12/29/2017, 0 10/21/2016, 12/11/2015, Additional history exists Yearly B-12 05/16/2019 05/16/2018 CKD HGB USE SMARTSET 15905 06/05/201906/05, 12/26/2017, 05/21/2017, Additional history exists BREAST [...]
--- OUTSIDE RECORDS SUMMARY | 2023-06-01 06:02 | External Medical Summary | Summary of Care ---
Author Name Unknown Organization [place] [address] Phone Care Team Providers Care Mud Temperer Name Role Phone Kevin Whiteside Primary Care Provider Reason for Visit * Reason Comments case management Encounter Details Date Type Department Care Team Description 06/13/2018 Telephone Internal Medicine [address] [address] Frances Nicholson RN [address] [place] [id number] case management Allergies Active Allergy Reactions [...] of 7.0%-8.0% ([facility]) Inject 66 Units under the skin 2 [...] 10/14/2014 Overview: ICD-10 update of inactive term [place] filter in place 08/19/2014 History of pulmonary [...] Encounter - Frances Nicholson RN - 06/13/2018 2:25 PM EDT Call placed to phone number listed in [facility]. No answer, left message on requesting return call Frances Nicholson RN, [facility] Busher Helper [phone] in this encounter Plan of Treatment Upcoming Encounters Date Type Specialty Care Team Description 06/23/2018 Imaging Radiology 06/23/2018 Office Visit Cardiology Rey Woodall MD [address] [place] [address] [phone] 06/27/2018 Pharmacy Pharmacy Sp, [facility] [address] [place] [address] [phone] 07/13/2018 Office Visit Nephrology Gia White MD [address] [facility] [place] [address] 08/01/2018 Office Visit Family Medicine Kevin Whiteside DO [address] [place] [address] [phone] 05/04/2019 Office Visit Sleep Disorders Celsa Tafoya CRNP [address] [place] [address] [phone] Health Maintenance Due Date Last Done Comments [...] Additional history exists CKD GFR USE SMARTSET 56558 12/10/201806/12, 06/05/2018, 05/16/2018, Additional history exists CKD PHOS USE SMARTSET 95962 12/29/2018 12/29/2017, 08/26/2009, 08/25/2009, Additional history exists DIABETES-FOOT EXAM 12/29/2018 12/29/2017, 0 10/21/2016, 12/11/2015, Additional history exists Yearly B-12 05/16/2019 05/16/2018 CKD HGB USE SMARTSET 50087 06/05/201906/05, 12/26/2017, 05/21/2017, Additional history exists PNEUMOCOCCAL [...]
--- OUTSIDE RECORDS SUMMARY | 2023-06-01 06:02 | External Medical Summary | Summary of Care ---
Author Name Unknown Organization [place] [address] Phone Care Team Providers Care Supplier Quality Engineer Name Role Phone Kevin Whiteside DO Primary Care Provider Reason for Visit * Reason Comments SHORT OF BREATH pt reports SOB, dry cough, weakness in bilateral legs and low back x2 weeks Encounter Details Date Type Department Care Team Description 06/05/2018 Office Visit Family Practice [facility] [address] [place] [address] Kevin Whiteside DO [address] [place] [address] Chest heaviness*;MyCode Research Other*[id number] Allergies Active Allergy Reactions Severity Noted Date [...] ([facility]) Inject 66 Units under the skin 2 times a day. Titrate by 2 units until SBGM <150 2 Pre-filled Pen Syringe Dosing Unit 11 05/24/2017 Active clonazePAM (KLONOPIN) 0.5 MG TabletIndications:Anx iety state Take 1 Tab by mouth 2 times a day. 180 Tab 1 07/14/2017 Active sertraline (ZOLOFT) 100 MG TabletIndications:Dep ression with anxiety 1 1/2 tabs daily 135 Tab 1 12/29/2017 Active hydrochlorothiazide (HYDRODIURIL) 12.5 MG CapsuleIndications:HT N, goal below 130/80 Take 1 Cap by mouth daily. 90 Cap 3 01/26/2018 Active levothyroxine (LEVOXYL) 200 MCG TabletIndications:Pos tsurgical hypothyroidism Take 1 Tab by mouth daily. (at least 30 min prior to breakfast or other meds) 90 Tab 1 01/26/2018 Active Nortriptyline HCl (PAMELOR) 50 MG CapsuleIndications:Fi bromyalgia Take 1 Cap by mouth at bedtime. 90 Cap 1 01/30/2018 Active liraglutide (VICTOZA) 18 MG/3ML SOPNIndications:DM type 2, goal: symptom mgmt ([facility]) Inject 1.8 mg under the skin daily. As directed 3 Pre-filled Pen Syringe Dosing Unit 11 02/08/2018 Active ONETOUCH DELICA LANCETS 33G MISC Check blood sugars twice daily as directed 100 Each 5 02/08/2018 Active Glucose Blood (ONETOUCH ULTRA BLUE) STRP Check sugars twice daily as directed 100 Strip 5 02/08/2018 Active metFORMIN ER (GLUCOPHAGE XR) 500 MG [id number]:Uncon trolled type 2 diabetes mellitus with stage 3 chronic kidney disease, with long-term current use of insulin (HCC) Take 4 Tabs by mouth daily. 360 Tab 1 03/07/2018 Active rOPINIRole (REQUIP) 1 MG TabletIndications:Res tless [...] 200 Box Dosing Unit 11 05/16/2018 Active azithromycin (ZITHROMAX Z-SANKET) 250 MG Tablet Take two tablets by mouth on first day, then 1 tablet daily until gone 6 Tab 0 06/05/2018 Active as of this encounter Active Problems Problem Noted Date Controlled substance agreement signed Body mass index (BMI) of 50.0 to 59.9 in adult ([facility]) 06/27/2017 Overview: Per Obesity protocol #1 - Per Obesity Taxonomy ICD-10 update of inactive term Uncontrolled type 2 diabetes mellitus with stage 3 chronic kidney disease, with long-term current use of insulin ([facility]) 05/24/2017 Gastroesophageal reflux disease with eso phagitis 03/04/2017 Restless legs syndrome 03/25/2016 Fibromyalgia 02/02/2016 Abnormality of gait 02/02/2016 Type 2 diabetes mellitus with hemoglobin A1c goal of 7.0%-8.0% ([facility]) 10/14/2014 Overview: ICD-10 update of inactive term Crozier filter in place 08/19/2014 History of pulmonary [...] BELOW 100 009 Overview: Per Lipid Taxonomy. History of heparin-induced thrombocytope alba 08/22/2009 Primary localized osteoarthrosis, lower leg 07/04/2008 ADVANCE [...] of 40.0-44.9 in adult ([facility] ) 08/17/2010 05/24/2017 Obesity, morbid (more than 1 00 lbs over ideal weight or BMI > 40) ([facility]) 12/23/2009 06/30/2017 Overview: Per Obesity Taxonomy ICD-10 update of inactive term HTN, GOAL BELOW 130/80 10/22/2009 2 Overview: Per HTN Taxonomy. Pneumonia in aspergillosis ([facility]) 09/14/2009 02/15/2017 Venous thrombosis 09/14/2009 10/15/2010 Respiratory failure, acute ([facility]) 09/14/2009 02/15/2017 Spontaneous pneumothorax 09/14/2009 017 Dysuria 08/23/2009 02/15/2017 Type 2 diabetes mellitus wit h hemoglobin A1c goal of less than 7.0% ([facility]) 07/10/2009 10/14/2014 Overview: Modified per Diabetes protocol #14. ICD-10 update of inactive term Dyslipidemia, goal LDL below 160 08/16/2007 09/04/2009 Overview: Per Lipid Taxonomy. HTN, goal below 140/90 04/09/2003 0 Overview: Per HTN Taxonomy. DM type 2, not at goal ([facility]) 05/29/2002 Overview: Modified per Diabetes protocol #14. TENOSYNOVITIS FOOT-ANKLE 12/26/2001 017 Goiter 01/13/2000 06/28/2011 BACKACHE NOS 08/26/1999 05/24/2017 OBESITY, UNSPECIFIED 08/26/1999 12/23/2009 Overview: Per Obesity Taxonomy Perforation of intestine (HCC) 0 02/15/2017 Overview: COLON Diverticulitis as of this encounter Immunizations Name Dates Previously Given Next Due Pneumococcal Polyvalent Vacc (Pneumovax) 08/22/2009,06/15/2006 Seasonal Influenza, Quadriva lent, No Preserve, 6 Mons & Above, IM 07/14/2017 Seasonal Influenza, Quadriva lent, No Preserve, IM 06/24/2016,07/24/2015 Seasonal Influenza, Trivalen t, with Preserve, 3yr & Above, Split 06/13/2014,07/07/2012,06/28/2011,05/28,08/01/2009,07/04/2008,08/14/20 07,10/19/2006,08/07/2004,09/04/2002 Varicella Zoster Vaccine (Adult) 12/11/2015 as of this encounter Social History Tobacco Use Types Packs/Day Years Used Date Former Smoker 1 15 Quit: 08/26 Smokeless Tobacco: Never Used Alcohol Use Drinks/Week oz/Week Comments Yes rare Sex Assigned at Date Recorded Not on file as of this encounter Last Filed Vital Signs Vital Sign Reading Time Taken Blood Pressure 150/76 06/05/2018 11:00 AM EDT Pulse 106 06/05/2018 11:00 AM EDT Temperature 36.7 C (98.1 F) 06/05/2018 1 1:00 AM EDT Respiratory Rate 36 06/05/2018 11:0 0 AM EDT Oxygen Saturation 91% 06/05/2018 11: 00 AM EDT Inhaled Oxygen Concentration - - Weight 159.9 kg (352 lb 9.6 oz) 018 11:00 AM EDT Height - - Body Mass Index 60.52 06/05/2018 11:00 AM EDT in this encounter Progress Notes * Kevin Whiteside, - 06/05/2018 11:14 AM EDT Formatting of this note may be different from the original. Nursing Notes: Izabela Crump, RESISTOR INSPECTOR 06/05/18 1104 Signed The patient has been properly identified by confirmation of name and date of . Chief Complaint Patient presents with SHORT OF BREATH pt reports SOB, dry cough, weakness in bilateral legs and low back x2 weeks ASSESSMENT/PLAN 1. Chest heaviness O2 level lower than previous, cough, increased malaise CXR showing diffuse interstitial pattern and WBC count elevated could be indicative of atypical pneumonia Will start azithromycin Labs pending for BNP and Trops EKG normal Educated patient that she should have low threshold for going to ER - XR Chest 2 Views - EKG; Future - BASIC METAB PANEL; Future - BNP (NT-pro-BNP); Future - CBC/DIFF; Future - Troponin T, High Sensitivity; Future HPI: Stephanie Camp is a 63 year old female who presents with chief complaint of increasing shortness of breath and chest heaviness for the past 2 weeks. 12 lb weight gain as well. No recent illnesses. Uncontrolled DMII, just started meal time insulin. ROS: See HPI for positives and negatives. Patient denies additional complaints. EXAM: BP 150/76 | Pulse 106 | Temp (Src) 98.1 (Tympanic) | Resp 36 | Wt 352 lbs 9.6 oz (159.938kg) | BMI 60.52 kg/m | BSA 2.69 m | SaO2 91% | LMP 03/11/2003 GENERAL: alert, healthy, in moderate distress, morbidly obese HEAD: Normocephalic, atraumatic EYES: PERRL, EOMI, Conjunctiva [...] rhythm, no murmurs and no gallops LUNGS: decreased air movement, otherwise clear to auscultation MSK/SKIN: pale, clammy PAST MEDICAL HISTORY: Patient Active Problem List Diagnosis Code Other allergic rhinitis J30.89 ADVANCE DIRECTIVE INFORMATION Primary localized osteoarthrosis, lower leg M17.10 History of heparin-induced thrombocytopenia Z86.2 DYSLIPIDEMIA, GOAL LDL BELOW 100 E78.5 Depression with anxiety F41.8 Postsurgical hypothyroidism E89.0 Hypoxemia R09.02 ELISSA (obstructive sleep apnea) G47.33 Venous insufficiency I87.2 HTN, goal below 130/80 I10 History of pulmonary embolus (PE) Z86.711 Statin intolerance Z78.[address] Z95.828 Type 2 diabetes mellitus with hemoglobin A1c goal of 7.0%-8.0% ([facility]) E11.9 Fibromyalgia M79.7 Abnormality of gait R26.9 Restless legs syndrome G25.81 Gastroesophageal reflux disease with esophagitis K21.0 Uncontrolled type 2 diabetes mellitus with stage 3 chronic kidney disease, with long-term current use of insulin ([facility]) E11.22, E11.65, N18.3, Z79.4 Body mass index (BMI) of 50.0 to 59.9 in adult ([facility]) Z68.43 Controlled substance agreement signed Z79.899 Past Surgical History: Procedure Laterality Date ARTHROPLASTY KNEE TOTAL Right 07/24/14 R COLONOSCOPY, DIAGNOSTIC (RECTUM) 02/18/2016 normal, repeat 10 yrs/[facility] COLONOSCOPY, GI REFERRAL OP 01/28/06 diverticulosis--repeat 10 years INCISION OF [place], PLANNED 06/03/2011 TRACHEOSTOMY PLANNED performed by DANNY HOLDER at [facility] KNEE ARTHROSCOPY/DEBRIDEMENT 07/30 L knee [...] at [facility] Review of patient's allergies indicates: Allergen Reactions Jardiance [Empagliflozin] Other (Please comment) 3 yeast infections in 6 weeks after starting Heparin Heparin Induced Thrombocytopenia Morphine And Related Hallucinations Tetanus Toxoid Other (Please comment) Passed out Current Outpatient Prescriptions Medication Sig Dispense Refill insulin aspart (NOVOLOG FLEXPEN) 100 UNIT/ML SOPN [...] NEEDED FOR MUSCLE SPASM 30 Tab 2 metoprolol tartrate (LOPRESSOR) 25 MG Tablet TAKE ONE TABLET BY MOUTH TWICE DAILY 60 Tab 11 levothyroxine (LEVOXYL) 25 MCG Tablet TAKE ONE TABLET BY MOUTH IN THE MORNING AT LEAST 30 MINUTES PRIOR TO BREAKFAST OR OTHER MEDS 90 Tab 1 gabapentin (NEURONTIN) 300 MG Capsule take 1 capsule by mouth twice daily for 2 weeks then switch to 1 three times daily 90 Cap 3 lisinopril (PRINIVIL) 10 MG Tablet TAKE ONE TABLET BY MOUTH DAILY 90 Tab 3 rOPINIRole (REQUIP) 1 MG Tablet TAKE ONE TABLET BY MOUTH AT BEDTIME 30 Tab 4 metFORMIN ER (GLUCOPHAGE XR) 500 MG TB24 Take 4 Tabs by mouth daily. 360 Tab 1 Glucose Blood (ONETOUCH ULTRA BLUE) STRP [...] by mouth at bedtime. 90 Cap 1 hydrochlorothiazide (HYDRODIURIL) 12.5 MG Capsule Take 1 Cap by mouth daily. 90 Cap 3 levothyroxine (LEVOXYL) 200 MCG Tablet Take 1 Tab by mouth daily. (at least 30 min prior to breakfast or other meds) 90 Tab 1 sertraline (ZOLOFT) 100 MG Tablet 1 1/2 tabs daily 135 Tab 1 clonazePAM (KLONOPIN) 0.5 MG [...] 20 MG PO CPDR one tablet daily Kevin Whiteside DO [facility] [address] [place] [address] in this encounter Procedure Notes * Zack Gonzales DO - 06/05/2018 11:18 AM EDT Associated Order(s): EKG REASON FOR STUDY: SOB CONCLUSIONS: Normal sinus rhythm Normal ECG When compared with ECG of 16-JUN-2011 17:29, No significant change was found Ventricular Rate: 100 Atrial Rate: 100 SD Interval: 180 QRS Duration: 84 QT/QTc: 340/438 ms P-R-T [place]: 51 : 44 : 46 degrees in this encounter Nursing Notes * Izabela Crump LPN - 06/05/2018 10:59 AM EDT Formatting of this note may be different from the original. The patient has been properly identified by confirmation of name and date of . Chief Complaint Patient presents with SHORT OF BREATH pt reports SOB, dry cough, weakness in bilateral legs and low back x2 weeks in this encounter Plan of Treatment Upcoming Encounters Date Type Specialty Care Team Description 06/27/2018 Pharmacy Pharmacy Sp, [facility] [address] [place] [address] [phone] 08/01/2018 Office Visit Family Medicine Kevin Whiteside DO [address] [place] [address] [phone] 05/04/2019 Office Visit Sleep Disorders Celsa Tafoya CRNP [address] [place] [address] [address] [phone] Pending Results Name Priority Associated Diagnoses Date/Ti me BNP (NT-PRO-BNP) Routine Chest heaviness 06/05/2018 11:49 AM EDT TROPONIN T, HIGH SENSITIVITY Routine Chest heaviness 06/05/2018 11:49 AM EDT MYCODE INITIAL ADULT Routine MyCode Research Other*[id number] 06/05/2018 11:55 AM EDT Scheduled Tests Name Priority Associated Diagnoses Order S chedule BNP (NT-PRO-BNP) Routine Chest heaviness Expected: 06/05/2018 (Approximate), Expires: 06/05/2019 TROPONIN T, HIGH SENSITIVITY Routine Chest heaviness Expected: 06/05/2018 (Approximate), Expires: 06/05/2019 Health Maintenance Due Date Last Done Comments DIABETES-EYE EXAM 02/24/2011 02/24/2010 (Do ne elsewhere), 12/18/2009, 02/18/2008 (Done elsewhere) Zoster Vaccines HMT (2 of 3) 02/05/2016 12/11/2015 BREAST CANCER SCREENING DISC USSION YEARLY AGES 40-75 05/09/2016 05/09/2015, 07/12/2014, 07/04/2014, Additional history exists PAP SMEAR-EVERY 3 YRS,AGES 21-65 05/11/2016 05/11/2013, 03/01/2008, 10/19/2006, Additional history exists *DEPRESSION SCREENING, UZAIR Amor FOR PTS 18 AND OVER 03/07/2018 Influenza Vaccine (FLU shot) (#1) 2018 07/14/2017, 06/24/2016, 07/24/2015, Additional history exists DIABETES-HGBA1C EVERY 6 MONTHS 11/01/2018 0 05/01/2018, 12/29/2017, 07/14/2017, Additional history exists CKD GFR USE SMARTSET 31562 11/16/201805/16, 05/01/2018, 12/29/2017, Additional history exists CKD HGB USE SMARTSET 96332 12/26/201812/26, 05/21/2017, 05/05/2017, Additional history exists CKD PHOS USE SMARTSET 98836 12/29/2018 04/0 01/2018, 08/26/2009, 08/25/2009, Additional history exists DIABETES-FOOT EXAM 12/29/2018 12/29/2017, 0 10/21/2016, 12/11/2015, Additional history exists Yearly B-12 05/16/2019 05/16/2018 PNEUMOCOCCAL 19-64 MEDIUM RISK Completed 08/22/2009 , 06/15/2006 as of this encounter Implants Not on fileas of this encounter Results * CBC/DIFF (06/05/2018 11:49 AM) Component Value Ref Range WBC 11.21(H) 4.00 - 10.80 K/u L RBC 4.42 3.85 - 5.15 M/uL HGB 12.9 12.0 - 15.3 g/dL HCT 41.9 36.0 - 45.2 % MCV 94.8 81.5 - 97.5 fL MCH 29.2 27.0 - 34.0 pg MCHC 30.8(L) 32.0 - 36.0 g/dL RDW 14.9 11.5 - 15.5 % PLATELET COUNT 301 140 - 400 K/uL MPV 9.3 6.6 - 11.1 fL NEUTS 76.0(H) 40 - 75 % LYMPHS 13.7(L) 18 - 42 % MONOS 6.2 1 - 11 % EOS 3.7 0 - 6 % BASOS 0.4 0 - 2 % ABS. NEUTS 8.51(H) 1.8 - 7.7 K/uL ABS. LYMPHS 1.54 1.0 - 4.8 K/uL ABS. MONOS 0.70 0.0 - 1.1 K/uL ABS. EOS 0.41 0.0 - 0.7 K/uL ABS. BASOS 0.05 0.0 - 0.2 K/uL SMUDGE CELLS PRESENT Specimen Performing Laborator y [employer] LT PHLEB ROOM [facility] Phleb Room [address] [facility] [place] [id number] * BASIC METAB PANEL, [facility] (06/05/2018 11:49 AM) Component Value Ref Range BUN 16 6 - 20 mg/dL CREATININE 1.1(H) Comment: GFR should be used to assess renal function.Plasma/Serum creatinine may not be able to properly reflect renal function in some cases. 0.5 - 1.0 mg/dL E GLOM FILT RATE 54.0(L)Comment:If sandy witt is , multiply estimated GFR by 1.159. >60 SODIUM 138 135 - 146 mmol/L POTASSIUM 5.2(H) 3.5 - 5.1 mmol/L CHLORIDE 99 98 - 107 mmol/L CO2 25 22 - 32 mmol/L ANION GAP 14 7 - 15 mmol/L GLUCOSE 231(H) 70 - 120 mg/dL CALCIUM 9.5 8.4 - 10.2 mg/dL Specimen Performing Laborator y [employer] LAB PROCESSING [facility] Lab Processing [address] [facility] [place] [address] * XR CHEST 2 VIEWS (06/05/2018 11:40 AM) Specimen Performing Laborator y [facility] Impressions IMPRESSION Diffusely increased interstitial lung markings, possibly pulmonary edema or infectious/ atypical pneumonia. Narrative EXAM XR CHEST 2 VIEWS - 06/05/2018 11:40 am HISTORY shortness of breath, low oxygen level COMPARISON CHEST 2 VIEWS AP OR PA AND LATERAL dated 07/16/2014; CHEST 1 VIEW dated 06/16/2011 TECHNIQUE PA and lateral chest. FINDINGS There are diffusely increased interstitial lung markings bilaterally, a new finding since prior exam in 2013.Cardiac silhouette is not enlarged.There is no pleural effusion.No mass like opacity.No acute bony abnormality.Partly visualized inferior vena caval filter noted.Thoracic kyphosis may be positional.Atherosclerotic changes in the aorta.No acute bony abnormality is seen. Procedure Note Interface, Rad In - 06/05/2018 3:23 PM EDT EXAM XR CHEST 2 VIEWS - 06/05/2018 11:40 am HISTORY shortness of breath, low oxygen level COMPARISON CHEST 2 VIEWS AP OR PA AND LATERAL dated 07/16/2014; CHEST 1 VIEW dated06/16/2011 TECHNIQUE PA and lateral chest. FINDINGS There are diffusely increased interstitial lung markings bilaterally, anew finding since prior exam in 2013. Cardiac silhouette is not enlarged.There is no pleural effusion. No mass like opacity. No acute bonyabnormality. Partly visualized inferior vena caval filter noted.Thoracic kyphosis may be positional. Atherosclerotic changes in theaorta. No acute bony abnormality is seen. IMPRESSION IMPRESSION Diffusely increased interstitial lung markings, possibly pulmonary edemaor infectious/ atypical pneumonia. * EKG (06/05/2018 11:18 AM) Specimen Performing Laborator y [facility] Procedure Note Zack Gonzales, - 06/05/2018 11:18 AM EDT REASON FOR STUDY: SOB CONCLUSIONS: Normal sinus rhythm Normal ECG When compared with ECG of 16-JUN-2011 17:29, No significant change was found Ventricular Rate: 100 Atrial Rate: 100 SD Interval: 180 QRS Duration: 84 QT/QTc: 340/438 ms P-R-T [place]: 51 : 44 : 46 degrees in this encounter Visit Diagnoses Diagnosis Chest heaviness - Primary Other chest pain MYCODE RESEARCH OTHER*[id number] in this encounter"
--- OUTSIDE RECORDS SUMMARY | 2023-06-01 06:02 | External Medical Summary | Summary of Care ---
Author Name Unknown Organization [place] [address] Phone Care Team Providers Care Mapper Name Role Phone Kevin Whiteside Primary Care Provider Reason for Referral * Evaluate & Treat - Unlimited Visits (Within 10 days (routine)) Status Reason Specialty Diagnoses / Procedures Referred By Contact Referred To Contact Authorized Specialty Services Required Ophthalmology Diagnoses Uncontrolled type 2 diabetes mellitus with stage 3 chronic kidney disease, with long-term current use of insulin (HCC) Sanjiv Isabel DO [address] [place] [phone] * Evaluate & Treat - Unlimited Visits (Within 10 days (routine)) Status Reason Specialty Diagnoses / Procedures Referred By Contact Referred To Contact Authorized Specialty Services Required Cardiovascular Medicine Diagnoses Acute diastolic congestive heart failure (HCC) Sanjiv Isabel DO [address] [place] [phone] * Evaluate & Treat - Unlimited Visits (Within 10 days (routine)) Status Reason Specialty Diagnoses / Procedures Referred By Contact Referred To Contact Authorized Specialty Services Required Nephrology Diagnoses ELSIE (acute kidney injury) ([facility]) Sanjiv Isabel DO [address] [place] [address] [place] [id number] Reason for Visit * Reason Comments HOSPITAL FOLLOW-UP pt c/o stiff and sor e neck since hospital visit MEDICATION ADMINISTRATION Flu and/or Pne umo Inj HOSPITAL FOLLOW-UP Encounter Details Date Type Department Care Team Description 06/12/2018 Office Visit Family [facility] [address] [facility] [place] [address] Sanjiv Isabel DO [address] [facility] [place] [address] [phone] Acute diastolic congestive heart failure ([facility])*;Uncontrolled type 2 diabetes mellitus with stage 3 chronic kidney disease, with long-term current use of insulin ([facility]);HTN, goal below 130/80;ELSIE (acute kidney injury) ([facility]);Hypomagnesemia;N eed for prophylactic vaccination and inoculation against influenza;DM type 2 nursing care encounter ([facility]);Hospital discharge follow-up;Breast cancer screening Allergies Active Allergy Reactions Severity Noted Date [...] of 7.0%-8.0% ([facility]) Inject 66 Units under the [...] Strip 02/08/2018 Active rOPINIRole (REQUIP) 1 MG TabletIndications:R estless legs syndrome TAKE ONE TABLET BY MOUTH AT BEDTIME 30 Tab 4 03/09/2018 Active lisinopril (PRINIVIL) 10 MG TabletIndications:H TN, goal below 140/80 TAKE ONE TABLET BY MOUTH DAILY 90 Tab 3 04/11/2018 Active gabapentin (NEURONTIN) 300 MG CapsuleIndications: Neuropathy,Fibromya [...] 04/12/2018 Active metoprolol tartrate (LOPRESSOR) 25 MG TabletIndications:H [...] ER 20 MEQ TBCR 06/10/2018 Activ e hydrochlorothiazide (HYDRODIURIL) 12.5 MG CapsuleIndications: HTN, goal below 130/80 Take 1 Cap by mouth daily. 90 Cap 3 01/26/2018 8 Discontinued metFORMIN ER (GLUCOPHAGE XR) 500 MG [id number]:Unc ontrolled type 2 diabetes mellitus with stage 3 chronic kidney disease, with long-term current use of insulin ([facility]) Take 4 Tabs by mouth daily. 360 Tab 1 03/07/2018 8 Discontinued azithromycin (ZITHROMAX Z-SANKET) 250 MG Tablet Take two tablets by mouth on first day, then 1 tablet daily until gone 6 Tab 0 06/05/2018 8 Discontinued as of this encounter Active Problems Problem Noted Date Acute diastolic congestive heart failure ([facility]) 06/12/2018 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[facility]) 0 06/12/2018 ELSIE (acute kidney injury) ([facility]) 06/12/20 18 Controlled substance agreement signed Body mass index (BMI) of 50.0 to 59.9 in adult ([facility]) 06/27/2017 Overview: Per Obesity protocol #1 - Per Obesity Taxonomy ICD-10 update of inactive term Uncontrolled type 2 diabetes mellitus with stage 3 chronic kidney disease, with long-term current use of insulin ([facility]) 05/24/2017 Gastroesophageal reflux disease with eso phagitis 03/04/2017 Restless legs syndrome 03/25/2016 Fibromyalgia 02/02/2016 Abnormality of gait 02/02/2016 Type 2 diabetes mellitus with hemoglobin A1c goal of 7.0%-8.0% ([facility]) 10/14/2014 Overview: ICD-10 update of [...] 76%, time <89% 6:21 hours, TINY [facility] Postsurgical hypothyroidism 06/16/2011 Depression with anxiety [...] mass index (BMI) of 40.0-44.9 in adult ([facility] ) 08/17/2010 05/24/2017 Obesity, morbid (more than 1 00 lbs over ideal weight or BMI > 40) ([facility]) 12/23/2009 06/30/2017 Overview: Per Obesity Taxonomy ICD-10 update of inactive term HTN, GOAL BELOW 130/80 10/22/2009 2 Overview: Per HTN Taxonomy. Pneumonia in aspergillosis ([facility]) 09/14/2009 02/15/2017 Venous thrombosis 09/14/2009 10/15/2010 Respiratory failure, acute ([facility]) 09/14/2009 02/15/2017 Spontaneous pneumothorax 09/14/2009 017 Dysuria 08/23/2009 02/15/2017 History of heparin-induced thrombocytopenia 07/2806/12/2018 Type 2 diabetes mellitus wit h hemoglobin A1c goal of less than 7.0% ([facility]) 07/10/2009 10/14/2014 Overview: Modified per Diabetes protocol #14. ICD-10 update of inactive term Dyslipidemia, goal LDL below 160 08/16/2007 09/04/2009 Overview: Per Lipid Taxonomy. HTN, goal below 140/90 04/09/2003 0 Overview: Per HTN Taxonomy. DM type 2, not at goal ([facility]) 05/29/2002 Overview: Modified per Diabetes [...] Vital Sign Reading Time Taken Blood Pressure 130/80 06/12/2018 1:04 PM EDT Pulse 88 06/12/2018 1:04 PM EDT Temperature 36.1 C (96.9 F) 06/12/2018 1 :04 PM EDT Respiratory Rate 18 06/12/2018 1:04 PM EDT Oxygen Saturation - - Inhaled Oxygen Concentration - - Weight 154.9 kg (341 lb 7 oz) 8 1:04 PM EDT Height 162.6 cm (5' 4") 06/12/2018 1:04 PM EDT Body Mass Index 58.61 06/12/2018 1:04 PM EDT in this encounter Instructions * Patient Instructions - Charissa Scanlon LPN - 06/12/2018 1:00 PM EDT Dear Stephanie Camp, The care of your Diabetes is very important to us. A yearly diabetic eye exam is important to protect your vision. Please tell your Eye Doctor to fax or mail us the results of your Diabetic Eye Exam at your next visit. Our Address and Fax Number are listed below to help. Thank you for helping us to improve your Diabetes Care Our Office Address and Fax Number: Kevin Whiteside DO [facility] [address] [facility] [address] ~~PATIENT INSTRUCTIONS FOR FLU SHOT~~ Possible side [...] OF EYES, FACE OR INSIDE OF NOSE. Taking Medicine Safely Medicine is given to [...] street drugs, herbs, supplements, or even some bgyn-ige-cndvoyu medicines can be harmful. Talk to your [...] to get rid of medicine: Call your [facility] or [facility]'s household trash and recycling service and ask if a drug take-back program is available in your community. Call your local pharmacy and ask the right way to get rid of the medicine. Go to http://www.fda.gov/ForConsumers/ConsumerUpdates/qfc626709 to learn how to get rid of [...] brand-name medicine, unless their doctor says otherwise. 0892-2022 [facility], [address] [place] [address]. All rights reserved. This information is not [...] best to keep a sense of humor. [address] [address]. All rights reserved. This information is not [...] and pharmacist about all the prescription and gcie-xgy-tqvulgw medicines you take.This includes vitamins and herbal remedies. Tell your doctor and pharmacist if you have any medical conditions or allergies to any medicine or food, or if you are or . Keep a list of all your medicines. Use the sample to the right as a guide for the type of information needed. [place] [id number]. All rights reserved. This information is not intended as a substitute for professional medical care. Always follow your healthcare professional's instructions. in this encounter Progress Notes * Sanjiv Isabel, - 06/12/2018 1:50 PM EDT Formatting of this note may be different from the original. SUBJECTIVE: Stephanie Camp is a 63 year old female. Chief Complaint Patient presents with HOSPITAL FOLLOW-UP pt c/o stiff and sore neck since hospital visit MEDICATION ADMINISTRATION Flu and/or Pneumo Inj HOSPITAL FOLLOW-UP Recent Admission: Patient was recently admitted to [facility] 06/06/18. The date of discharge was 06/10/18. Discharge report received and reviewed. HPI: Patient is a 63-year-old female admitted to [facility] hospital on 06/06/2018 with complains of increased dyspnea on exertion, shortness of breath, orthopnea and leg edema x2 weeks. Patient denied chest pain or palpitations. Patient had chest x-ray showing pneumonitis/pulmonary edema. Lab studies on 06/05/2018 showed elevated troponin, BNP 95. Chest x-ray in ER showed pulmonary vascular congestion consistent with CHF, CT of chest was negative for PE. CTA showed ground-glass opacities consistent with inflammatory or infectious pneumonitis, patient treated with IV Levaquin in the ED. Patient admitted to hospital due to acute hypoxic respiratory failure and acute CHF. Hospital course patient treated with IV furosemide with clinical improvement. Echocardiogram showed mild concentric LVH with EF 65-70% . Patient treated for acute kidney injury with serum creatinine on day of admission 1.32. Creatinine increased to 2.10 due to diuretic therapy. Creatinine on day of discharge 1.9 patient had hypomagnesemia with serum magnesium 1.4 patient discharged on furosemide 40 mg 1 tab daily, potassium chloride 20 mEq 1 tab daily and magnesium chloride 1 tab twice daily medications discontinued hydrochlorothiazide 12.5 mg and metformin discontinued due to acute kidney injury. Patient Active Problem List Diagnosis Code Other [...] CENTER) Z68.43 Controlled substance agreement signed Z79.899 Acute diastolic congestive heart failure ([facility]) I50.31 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[facility]) D75.82 Current Outpatient Prescriptions Medication Sig Dispense Refill furosemide (LASIX) 40 MG Tablet MAG64 64 MG TBEC Potassium Chloride Ayleen ER 20 MEQ TBCR sertraline (ZOLOFT) 100 MG Tablet TAKE ONE [...] AT BEDTIME 30 Tab 4 Glucose Blood (Lab4UTOUCH ULTRA BLUE) STRP Check sugars twice daily [...] 2 times a day. 180 Tab 1 oxygen GAS 4 LPM bled through CPAP 11 cwp during all periods of sleep. 1 Each 0 PRILOSEC 20 MG PO CPDR one tablet daily metFORMIN ER (GLUCOPHAGE XR) 500 MG TB24 Take 4 Tabs by mouth daily. 360 Tab 1 insulin glargine (INSULIN GLARGINE) 100 UNIT/ML SOPN Inject 66 Units under the skin 2 times a day. Titrate by 2 units until SBGM <150 2 Pre-filled Pen Syringe Dosing Unit 11 docusate sodium (STOOL SOFTENER) 100 MG Capsule Take 100 mg by mouth 2 times a day as needed for Constipation. Current and discharge medications have been reconciled. Review of patient's allergies indicates: Allergen Reactions Jardiance [Empagliflozin] Other (Please comment) 3 yeast infections in 6 weeks after starting Heparin Heparin Induced Thrombocytopenia Morphine And Related Hallucinations Tetanus Toxoid Other (Please comment) Passed out OBJECTIVE: BP 130/80 | Pulse 88 | Temp (Src) 96.9 (Tympanic) | Resp 18 | Ht 5' 4" (1.626m) | Wt 341 lbs 7 oz (154.875kg) | BMI 58.61 kg/m | BSA 2.64 m | LMP 03/11/2003 Review Of Systems: Skin: negative Eyes: negative Ears/Nose/Throat: Denies nasal congestion sore throat or earache Respiratory: Dyspnea on exertion and shortness of breath improved Cardiovascular: Positive leg edema, denies chest pain or palpitations Gastrointestinal: Denies abdominal pain, nausea vomiting diarrhea constipation Genitourinary: Denies urinary frequency, dysuria urgency or hematuria Musculoskeletal: pt denies significant joint pain or stiffness Neurologic: negative Psychiatric: negative Hematologic/Lymphatic/Immunologic: negative Endocrine: negative PHYSICAL EXAM: General: alert, healthy and no distress Head: Normocephalic, No masses, lesions, tenderness or abnormalities Eye Exam: PERRLA, EOMI, Conjunctiva are pink and non-injected, sclera clear Ears: External ears normal, Canals clear, TM's Normal Nose: no mucosal erythema, no mucosal edema, no purulent discharge, no septal hematoma Oropharynx: no exudate, no erythema, lips, buccal mucosa, and tongue normal and mucous membranes are moist Neck: supple, no adenopathy, no bruits, thyroid normal size, non-tender, without nodularity Lymph: no palpable lymphadenopathy Heart: regular rate & rhythm, no murmurs and no gallops Lungs: chest symmetric with normal AP diameter, no chest deformities noted, no chest wall tenderness, lungs clear to auscultation Pulses: radial=2/4, carotid=2/4 w/o bruits, posterior tibial=2/4 Abdomen: Morbidly obese, abdomen soft, nondistended, non-tender, normal bowel sounds and no masses or organomegaly , bowel sounds x4 normal Back: No CVA tenderness, no tenderness to percussion or palpation Extremities: no joint deformities, effusion, or inflammation, bilateral lower extremity edema 1/4 nonpitting, no clubbing, no cyanosis Neuro Exam: alert & oriented x 3 with fluent speech, no focal motor/sensory deficits, gait normal, reflexes normal and symmetric Skin: skin color, texture, turgor are normal, no rashes or significant lesions ASSESSMENT: I50.31 Acute diastolic congestive heart failure (hcc) (primary encounter diagnosis) Plan: Continue furosemide 40 mg 1 tab once daily, daily weight, return to office if symptoms worsenor persist Cardiology referral op Disch med recon cur med lis E11.22, E11.65, N18.3, Z79.4 Uncontrolled type 2 diabetes mellitus with stage 3 chronic kidney disease, with long-term current use of insulin (hcc) Plan: Discontinue metformin due to acute kidney injury, continue to monitor home glucose, insulin dose titration of NovoLog insulin pre meal as directed Disch med recon cur med lis I10 Htn, goal below 130/80 Plan: Continue present medication Cardiac diet Disch med recon cur med lis N17.9 Elsie (acute kidney injury) (hcc) Plan: Avoid nonsteroidal anti-inflammatory drugs, metformin discontinued Nephrology referral op BMP Disch med recon cur med lis E83.42 Hypomagnesemia Plan: Continue present treatment Repeat magnesium level Disch med recon cur med lis Z23 Need for prophylactic vaccination and inoculation against influenza Plan: Influenza vacc, quad, pf, 6 months & up, 0.5 ml, im Disch med recon cur med lis E11.9 Dm type 2 nursing care encounter ([facility]) Plan: Disch med recon cur med lis Z09 Hospital discharge follow-up Plan: Disch med recon cur med lis PLAN: Continue present medication(s): Referral(s) to: nephrology, cardiology Schedule labs: bmp,magnesium Follow up in 1 month(s). Sanjiv Isabel DO * Charissa Scanlon LPN - 06/12/2018 1:00 PM EDT The importance of having a yearly diabetic eye exam has been discussed with patient. Order and Referral placed along with patient instructions. Provider made aware. Charissa Scanlon LPN PRE - ADMINISTRATION DOCUMENTATION Are you allergic to latex? No Are you experiencing any cold symptoms or fever? No Have you had Guillain-[place] Syndrome (an illness that causes paralysis)? No Have you had the flu shot in the past? YES Have you ever had a reaction to the flu shot? No Charissa Scanlon LPN, 06/12/2018 1:00 PM Immunization Administration Documentation Time Out Procedure Performed: Yes Patient Identified (Ask Name/Date of ): Yes Does the patient have a fever greater than 101 degrees today? No Patient allergic to latex? No VFC Stock: No Immunization(s) verified: Yes, Immunization Name: Flu, VIS Sheet(s) given: Yes Verified Side and Site: Yes Verified Shot(s) with Parent(s)/Patient: Yes in this encounter Nursing Notes * Charissa Scanlon LPN - 06/12/2018 12:59 PM EDT Formatting of this note may be different from the original. The patient has been properly identified by confirmation of name and date of . Chief Complaint Patient presents with HOSPITAL FOLLOW-UP pt c/o stiff and sore neck since hospital visit in this encounter Plan of Treatment Upcoming Encounters Date Type Specialty Care Team Description 06/23/2018 Imaging Radiology 06/23/2018 Office Visit Cardiology Rey Woodall MD [address] [place] [place] [address] 06/27/2018 Pharmacy Pharmacy Sp, [facility] [address] [place] [address] [phone] 07/13/2018 Office Visit Nephrology Gia White MD [address] [place] [address] [phone] 08/01/2018 Office Visit Family Medicine Kevin Whiteside, [address] [place] [address] [phone] 05/04/2019 Office Visit Sleep Disorders Celsa Tafoya CRNP [address] [place] [address] [phone] Scheduled Tests Name Priority Associated Diagnoses Order S chedule MAMMOGRAM SCREENING BILATERAL Routine Breast cancer screening Ordered: 06/12/2018 Scheduled Referrals Name Priority Associated Diagnoses Order S chedule NEPHROLOGY REFERRAL OP Within 10 days (routine) ELSIE (acute kidney injury) (HCC) Ordered: 06/12/2018 CARDIOLOGY REFERRAL OP Within 10 days (routine) Acute diastolic congestive heart failure (HCC) Ordered: 06/12/2018 OPHTHALMOLOGY REFERRAL OP Within 10 days (routine) Uncontrolled type 2 diabetes mellitus with stage 3 chronic kidney disease, with long-term current use of insulin (HCC) Ordered: 06/12/2018 Health Maintenance Due Date Last Done Comments [...] Additional history exists CKD GFR USE SMARTSET 90322 12/03/201806/05, 05/16/2018, 05/01/2018, Additional history exists CKD PHOS USE SMARTSET 83593 12/29/2018 12/29/2017, 08/26/2009, 08/25/2009, Additional history exists DIABETES-FOOT EXAM 12/29/2018 12/29/2017, 0 10/21/2016, 12/11/2015, Additional history exists Yearly B-12 05/16/2019 05/16/2018 CKD HGB USE SMARTSET 10375 06/05/201906/05, 12/26/2017, 05/21/2017, Additional history exists PNEUMOCOCCAL 19-64 MEDIUM RISK Completed 08/22/2009, 06/15/2006 *DEPRESSION SCREENING, ANNUAL FOR PTS 18 AND OVER Addressed 06/12/2018 Overridden wi th the intention of not completing the topic *NEPHROLOGY REFERRAL DUE TO RESISTANT HTN Addressed 06/12/2018 Overridden with the intention of not completing the topic Influenza Vaccine (FLU shot) Addressed 06/12/2018, 07/14/2017, 06/24/2016, Additional history exists Overridden with the intention of not completing the topic as of this encounter Implants Not on fileas of this encounter Results * MAGNESIUM (06/12/2018 2:14 PM) Component Value Ref Range MAGNESIUM 1.6 1.5 - 2.6 mg/dL Specimen Performing Laborator [facility] [employer] [facility] [address] [place] [id number] * BASIC METAB PANEL, BMP (06/12/2018 2:14 PM) Component Value Ref Range BUN 35(H) 6 - 20 mg/dL CREATININE 1.3(H) Comment: GFR should be used to assess renal function.Plasma/Serum creatinine may not be able to properly reflect renal function in some cases. 0.5 - 1.0 mg/dL E GLOM FILT RATE 42.4(L)Comment:If sandy witt is , multiply estimated GFR by 1.159. >60 SODIUM 138 135 - 146 mmol/L POTASSIUM 4.9 3.5 - 5.1 mmol/L CHLORIDE 96(L) 98 - 107 mmol/L CO2 27 22 - 32 mmol/L ANION GAP 15 7 - 15 mmol/L GLUCOSE 258(H) 70 - 120 mg/dL CALCIUM 9.3 8.4 - 10.2 mg/dL Specimen Performing Laborator [facility] [employer] [facility] [address] [place] [address] in this encounter Visit Diagnoses Diagnosis Acute diastolic congestive h eart failure (HCC) - Primary Acute diastolic heart failure Uncontrolled type 2 diabetes mellitus with stage 3 chronic kidney disease, with long-term current use of insulin (HCC) HTN, goal below 130/80 Unspecified essential hypertension ELSIE (acute kidney injury) (H CC) Acute kidney failure, unspecified Hypomagnesemia Disorders of magnesium metabolism Need for prophylactic vaccin ation and inoculation against influenza DM type 2 nursing care encou nter ([facility]) Type II or unspecified type diabetes mellitus without mention of complication, not stated as uncontrolled Hospital discharge follow-up Other follow-up examination Breast cancer screening Breast screening, unspecified in this encounter
--- OUTSIDE RECORDS SUMMARY | 2023-06-01 06:02 | External Medical Summary ---
Author Name Unknown Address [address] [place] [address] Phone Organization [facility] Jeramie Ordaz [address] [facility] [place] [address] Laboratory Report Ordering Provider Test Date Status LONG CAMARENA 06/05/2018 11:49:00 Final Observation Date Value Abnormality Reference Status WBC, Total 06/05/2018 12:12 11.21 Above high normal 4.00 -10.80 Final RBC 06/05/2018 12:12 4.42 3.85-5.15 Fin al Hemoglobin 06/05/2018 12:12 12.9 12.0-15.3 Fi nal HCT 06/05/2018 12:12 41.9 36.0-45.2 Fin al MCV 06/05/2018 12:12 94.8 81.5-97.5 Fin al MCH 06/05/2018 12:12 29.2 27.0-34.0 Fin al MCHC 06/05/2018 12:12 30.8 Below low normal 32.0-3 6.0 Final RDW 06/05/2018 12:12 14.9 11.5-15.5 Fin al Platelets 06/05/2018 12:12 301 140-400 Fin al MPV 06/05/2018 12:12 9.3 6.6-11.1 Fin al Segs 06/05/2018 12:23 76.0 Above high normal 40-75 Final Lymphs % 06/05/2018 12:23 13.7 Below low normal 18-42 Final Monos 06/05/2018 12:23 6.2 1-11 Fin al Eosinophils 06/05/2018 12:23 3.7 0-6 F inal Basos 06/05/2018 12:23 0.4 0-2 Fin al Absolute Segs 06/05/2018 12:23 8.51 Above high normal 1 .8-7.7 Final Lymphs, absolute 06/05/2018 12:23 1.54 1.0-4. 8 Final Monos, Abs 06/05/2018 12:23 0.70 0.0-1.1 Fi nal Eos, Abs 06/05/2018 12:23 0.41 0.0-0.7 Fin al Basos, Abs 06/05/2018 12:23 0.05 0.0-0.2 Fi nal Smudge cells [Presence] in Blood by Light microscopy 06/05/2018 12:23 PRESENT Final Performing Location [address] [address]
--- OUTSIDE RECORDS SUMMARY | 2023-06-01 06:02 | External Medical Summary | Summary of Care ---
Author Name Unknown Organization [place] [address] Phone Care Team Providers Care Data Reviewer Name Role Phone Kevin Whiteside Primary Care Provider Reason for Visit * Reason Comments Dosage Adjustment Via Phone (anticoag Cl inic) DIABETES FOLLOW-UP Encounter Details Date Type Department Care Team Description 06/16/2018 Pharmacy Pharmacy, [facility] [address] [facility] [place] [address] Sp, [facility] [address] [facility] [place] [address] [phone] Uncontrolled type 2 diabetes mellitus with stage 3 chronic kidney disease, with long-term current use of insulin ([facility])*;Type 2 diabetes mellitus with hemoglobin A1c goal [...] Acute diastolic congestive heart failure ([facility]) 06/12/2018 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[facility]) 0 06/12/2018 ELSIE (acute kidney injury) ([facility]) 06/12/20 18 Controlled substance agreement signed Body mass index (BMI) of 50.0 to 59.9 in adult ([facility]) 06/27/2017 Overview: Per Obesity protocol #1 - Per Obesity Taxonomy ICD-10 update of inactive term Uncontrolled type 2 diabetes mellitus with stage 3 chronic kidney disease, with long-term current use of insulin ([facility]) 05/24/2017 Gastroesophageal reflux disease with eso phagitis 03/04/2017 Restless legs syndrome 03/25/2016 Fibromyalgia 02/02/2016 Abnormality of gait 02/02/2016 Type 2 diabetes mellitus with hemoglobin A1c goal of 7.0%-8.0% ([facility]) 10/14/2014 Overview: ICD-10 update of inactive term [place] filter in place 08/19/2014 History of pulmonary embolus (PE) 2013 Statin intolerance 07/16/2014 HTN, goal below 130/80 02/22/2014 Venous insufficiency 02/07/2013 ELISSA (obstructive sleep apnea) 09/16/2011 Overview: CPAP 11 cwp Mild, AHI 11.3 but with significant nocturnal hypoxemia Dicks Hypoxemia 07/22/2011 Overview: Nocturnal ox 2 LPM 07/20/11 -- mean 84%, low 76%, time <89% 6:21 hours, [facility] Postsurgical hypothyroidism 06/16/2011 Depression with anxiety [...] (BMI) of 40.0-44.9 in adult ([facility] ) 08/17/2010 05/24/2017 Obesity, morbid (more than 1 00 lbs over ideal weight or BMI > 40) ([facility]) 12/23/2009 06/30/2017 Overview: Per Obesity Taxonomy ICD-10 update of inactive term HTN, GOAL BELOW 130/80 10/22/2009 2 Overview: Per HTN Taxonomy. Pneumonia in aspergillosis ([facility]) 09/14/2009 02/15/2017 Venous thrombosis 09/14/2009 10/15/2010 Respiratory failure, acute ([facility]) 09/14/2009 02/15/2017 Spontaneous pneumothorax 09/14/2009 017 Dysuria 08/23/2009 02/15/2017 History of heparin-induced thrombocytopenia 07/2806/12/2018 Type 2 diabetes mellitus wit h hemoglobin A1c goal of less than 7.0% ([facility]) 07/10/2009 10/14/2014 Overview: Modified per Diabetes protocol #14. ICD-10 update of inactive term Dyslipidemia, goal LDL below 160 08/16/2007 09/04/2009 Overview: Per Lipid Taxonomy. HTN, goal below 140/90 04/09/2003 0 Overview: Per HTN Taxonomy. DM type 2, not at goal ([facility]) 05/29/2002 Overview: Modified per Diabetes protocol #14. [...] encounter Progress Notes * Frances Ellis, [facility] - 06/16/2018 7:57 AM EDT Formatting of this note may be different from the original. Diabetes telephone follow - up 06/16/2018 Patient Phone Numbers - Reason for call: Patient admitted to [facility] on 06/06 for elevated trops/pneumonia. Patient was discharged 06/10 with instructions to discontinue Metformin due to renal disease and to continue Lantus, Novolog, and Victoza. Patient advised by PCP to start sliding scale for Novolog. product manager advised her to take CF 2:50over 100 in addition to mealtime doses. Based on insulin requirements, patient's CF could be as stringent as 1:12 over 140. 10:42 AM - spoke to patient, BGs still elevated but coming down. Has been using sliding scale. - Current diabetic medications: Lantus/basaglar - 66 units twice daily Victoza 1.8 mg daily discontinued during inpatient stay due to ELSIE Novolog 5 units with breakfast and lunch, 10 units at dinner + CF 2:50 over 100 (new) SMBG: Patient reports BGs in AM usually < 200, throughout the day up to 400's Therapy Management Assessment/Plan: 1) Diabetes: Patient's BGs still elevated, will increase mealtime Novolog and follow up with patient in 1 week. Lantus/basaglar - 66 units twice daily Victoza 1.8 mg daily discontinued during inpatient stay due to ELSIE Increase Novolog 5 units with breakfast, 8 units lunch, 12 units at dinner + CF 2:50 over 100 (new) Frances Duong, Pharm D, BCACP Clinical Pharmacist Medication Therapy [facility] 06/16/2018, 10:42 AM in this encounter Plan of Treatment Upcoming Encounters Date Type Specialty Care Team Description 06/16/2018 Pharmacy Pharmacy Sp, [facility] [address] [facility] [place] [address] [phone] Uncontrolled type 2 diabetes mellitus with stage 3 chronic kidney disease, with long-term current use of insulin (HCC)*;Type 2 diabetes mellitus with hemoglobin A1c goal of 7.0%-8.0% (HCC) 06/21/2018 Pharmacy Pharmacy , [facility] [address] [facility] [place] [address] [phone] 06/23/2018 Imaging Radiology 06/23/2018 Office Visit Cardiology Rey Woodall MD [address] [place] [address] [phone] 06/27/2018 Pharmacy Pharmacy Sp, [facility] [address] [facility] [place] [address] [phone] 07/13/2018 Office Visit Nephrology Gia White MD [address] [place] [address] [phone] 08/01/2018 Office Visit Family Medicine Kevin Whiteside DO [address] [place] [address] [address] [phone] 05/04/2019 Office Visit Sleep Disorders Celsa Tafoya CRNP [address] [place] [address] [phone] Health Maintenance Due Date Last Done Comments [...] Additional history exists CKD GFR USE SMARTSET 95174 12/10/201806/12, 06/05/2018, 05/16/2018, Additional history exists CKD PHOS USE SMARTSET 92219 12/29/2018 12/29/2017, 08/26/2009, 08/25/2009, Additional history exists DIABETES-FOOT EXAM 12/29/2018 12/29/2017, 0 10/21/2016, 12/11/2015, Additional history exists Yearly B-12 05/16/2019 05/16/2018 CKD HGB USE SMARTSET 51553 06/05/201906/05, 12/26/2017, 05/21/2017, Additional history exists PNEUMOCOCCAL [...]
--- OUTSIDE RECORDS SUMMARY | 2023-06-01 06:02 | External Medical Summary | Summary of Care ---
Author Name Unknown Organization [place] [address] Phone Care Team Providers Care Refractory Mixer Name Role Phone Kevin Whiteside Primary Care Provider Reason for Visit * Reason Comments case management Encounter Details Date Type Department Care Team Description 06/13/2018 Telephone Internal Medicine [address] [address] Frances Nicholson RN [address] [place] [id number] case management Allergies Active Allergy Reactions [...] of 7.0%-8.0% ([facility]) Inject 66 Units under [...] Noted Date Acute diastolic congestive heart failure ([facility]) 06/12/2018 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[facility]) 0 06/12/2018 ELSIE (acute kidney injury) ([facility]) 06/12/20 18 Controlled substance agreement signed Body mass index (BMI) of 50.0 to 59.9 in adult ([facility]) 06/27/2017 Overview: Per Obesity protocol #1 - Per Obesity Taxonomy ICD-10 update of inactive term Uncontrolled type 2 diabetes mellitus with stage 3 chronic kidney disease, with long-term current use of insulin ([facility]) 05/24/2017 Gastroesophageal reflux disease with eso phagitis 03/04/2017 Restless legs syndrome 03/25/2016 Fibromyalgia 02/02/2016 Abnormality of gait 02/02/2016 Type 2 diabetes mellitus with hemoglobin A1c goal of 7.0%-8.0% ([facility]) 10/14/2014 Overview: ICD-10 update [...] mass index (BMI) of 40.0-44.9 in adult ([facility] ) 08/17/2010 05/24/2017 Obesity, morbid (more than 1 00 lbs over ideal weight or BMI > 40) ([facility]) 12/23/2009 06/30/2017 Overview: Per Obesity Taxonomy ICD-10 update of inactive term HTN, GOAL BELOW 130/80 10/22/2009 2 Overview: Per HTN Taxonomy. Pneumonia in aspergillosis ([facility]) 09/14/2009 02/15/2017 Venous thrombosis 09/14/2009 10/15/2010 Respiratory failure, acute ([facility]) 09/14/2009 02/15/2017 Spontaneous pneumothorax 09/14/2009 017 Dysuria 08/23/2009 02/15/2017 History of heparin-induced thrombocytopenia 07/2806/12/2018 Type 2 diabetes mellitus wit h hemoglobin A1c goal of less than 7.0% ([facility]) 07/10/2009 10/14/2014 Overview: Modified per Diabetes protocol #14. ICD-10 update of inactive term Dyslipidemia, goal LDL below 160 08/16/2007 09/04/2009 Overview: Per Lipid Taxonomy. HTN, goal below 140/90 04/09/2003 0 Overview: Per HTN Taxonomy. DM type 2, not at goal ([facility]) 05/29/2002 Overview: Modified per Diabetes protocol #14. TENOSYNOVITIS FOOT-ANKLE 12/26/2001 017 Goiter 01/13/2000 06/28/2011 BACKACHE NOS 08/26/1999 05/24/2017 OBESITY, UNSPECIFIED 08/26/1999 12/23/2009 Overview: Per Obesity Taxonomy Perforation of intestine ([facility]) 0 02/15/2017 Overview: COLON [...] Encounter - Frances Nicholson RN - 06/13/2018 4:14 PM EDT Spoke with pt Frances Nicholson RN Case Manager * Telephone Encounter - Nayeli Vega OSA - 06/13/2018 4:04 PM EDT Pt was returning call, please advise [phone] * Telephone Encounter - Frances Nicholson RN - 06/13/2018 2:25 PM EDT Call placed to phone number listed in [facility]. No answer, left message on requesting return call Frances Nicholson RN, [facility] Property Caretaker [phone] in this encounter Plan of Treatment Upcoming Encounters Date Type Specialty Care Team Description 06/16/2018 Pharmacy Pharmacy [facility] [address] [facility] [address] [phone] 06/23/2018 Imaging Radiology 06/23/2018 Office Visit Cardiology Rey Woodall MD [address] [facility] [place] [address] [phone] 06/27/2018 Pharmacy Pharmacy Sp, [facility] [address] [place] [address] [phone] 07/13/2018 Office Visit Nephrology Gia White MD [address] [place] [address] [address] [phone] 08/01/2018 Office Visit Family Medicine Kevin Whiteside, [address] [address] [address] [phone] 05/04/2019 Office Visit Sleep Disorders Celsa Tafoya CRNP [address] [address] [address] [phone] Health Maintenance Due Date Last Done Comments [...] Additional history exists CKD GFR USE SMARTSET 62976 12/10/201806/12, 06/05/2018, 05/16/2018, Additional history exists CKD PHOS USE SMARTSET 20912 12/29/2018 12/29/2017, 08/26/2009, 08/25/2009, Additional history exists DIABETES-FOOT EXAM 12/29/2018 12/29/2017, 0 10/21/2016, 12/11/2015, Additional history exists Yearly B-12 05/16/2019 05/16/2018 CKD HGB USE SMARTSET 90935 06/05/201906/05, 12/26/2017, 05/21/2017, Additional history exists PNEUMOCOCCAL [...]
--- OUTSIDE RECORDS SUMMARY | 2023-06-01 06:02 | External Medical Summary ---
Author Name Unknown Address [address] [facility] [place] [address] Phone Organization K0G:[facility] [address] [facility] [place] [address] Laboratory Report Ordering Provider Test Date Status ISMAEL RODRIGUEZ 06/12/2018 14:14:00 Final Observation Date Value Abnormality Reference Status Magnesium 06/12/2018 15:09 1.6 1.5-2.6 Fin al Performing Location G Jeramie Ord[facility] [address] [facility] [place] [address]
--- OUTSIDE RECORDS SUMMARY | 2023-06-01 06:02 | External Medical Summary ---
Author Name Unknown Address [address] [place] [address] Phone Organization K0G:[facility] [employer] [address] [facility] [address] Laboratory Report Ordering Provider Test Date Status RODNEY RODRIGUEZO 06/12/2018 14:14:00 Final Observation Date Value Abnormality Reference Status BUN 06/12/2018 15:09 35 Above high normal 6-20 Final Creatinine 06/12/2018 15:09 1.3 Above high normal 0.5- 1.0 Final Performing Location [facility] [address] [place] [address]
--- OUTSIDE RECORDS SUMMARY | 2023-06-01 06:02 | External Medical Summary | Summary of Care ---
Author Name Unknown Organization [place] [address] Phone Care Team Providers Care Electrical Contacts Adjuster Name Role Phone Migue Whiteside Primary Care Provider Reason for Visit * Reason Comments eRx-Medication Refill Encounter Details Date Type Department Care Team Description 06/07/2018 Refill Family Practice [facility] [address] [facility] [place] [address] Teddy De Oliveira MD [address] [facility] [place] [address] [phone] Depression with anxiety Allergies Active Allergy Reactions [...] ([facility]) Inject 66 Units under the skin 2 times a day. Titrate by 2 units until SBGM <150 2 Pre-filled Pen Syringe Dosing Unit 11 05/24/2017 Active clonazePAM (KLONOPIN) 0.5 MG TabletIndications:A nxiety state Take 1 Tab by mouth 2 times a day. 180 Tab 1 07/14/2017 Active hydrochlorothiazide (HYDRODIURIL) 12.5 MG CapsuleIndications: HTN, goal below 130/80 Take 1 Cap by mouth daily. 90 Cap 3 01/26/2018 Active levothyroxine (LEVOXYL) 200 MCG TabletIndications:P ostsurgical [...] Active metFORMIN ER (GLUCOPHAGE XR) 500 MG PY10Elzrexmhogl:Unc ontrolled type 2 diabetes mellitus with stage 3 chronic kidney disease, with long-term current use of insulin (HCC) Take 4 Tabs by mouth daily. 360 Tab 1 03/07/2018 Active rOPINIRole (REQUIP) 1 MG TabletIndications:R estless [...] until gone 6 Tab 0 06/05/2018 Active sertraline (ZOLOFT) 100 MG TabletIndications:D epression with anxiety TAKE ONE AND ONE-HALF TABLETS BY MOUTH DAILY 135 Tab 1 06/07/2018 Active sertraline (ZOLOFT) 100 MG TabletIndications:D epression with anxiety 1 1/2 tabs daily 135 Tab 1 12/29/2017 8 Discontinued as of this encounter Active Problems Problem Noted Date Controlled substance agreement signed Body mass index (BMI) of 50.0 to 59.9 in adult ([facility]) 06/27/2017 Overview: Per Obesity protocol #1 - Per Obesity Taxonomy ICD-10 update of inactive term Uncontrolled type 2 diabetes mellitus with stage 3 chronic kidney disease, with long-term current use of insulin ([facility]) 05/24/2017 Gastroesophageal reflux disease with eso phagitis 03/04/2017 Restless legs syndrome 03/25/2016 Fibromyalgia 02/02/2016 Abnormality of gait 02/02/2016 Type 2 diabetes mellitus with hemoglobin A1c goal of 7.0%-8.0% ([facility]) 10/14/2014 Overview: ICD-10 update of inactive term [...] of 40.0-44.9 in adult ([facility] ) 08/17/2010 05/24/2017 Obesity, morbid (more than 1 00 lbs over ideal weight or BMI > 40) ([facility]) 12/23/2009 06/30/2017 Overview: Per Obesity Taxonomy ICD-10 update of inactive term HTN, GOAL BELOW 130/80 10/22/2009 2 Overview: Per HTN Taxonomy. Pneumonia in aspergillosis ([facility]) 09/14/2009 02/15/2017 Venous thrombosis 09/14/2009 10/15/2010 Respiratory failure, acute ([facility]) 09/14/2009 02/15/2017 Spontaneous pneumothorax 09/14/2009 017 Dysuria 08/23/2009 02/15/2017 Type 2 diabetes mellitus wit h hemoglobin A1c goal of less than 7.0% ([facility]) 07/10/2009 10/14/2014 Overview: Modified per Diabetes protocol #14. ICD-10 update of inactive term Dyslipidemia, goal LDL below 160 08/16/2007 09/04/2009 Overview: Per Lipid Taxonomy. HTN, goal below 140/90 04/09/2003 0 Overview: Per HTN Taxonomy. DM type 2, not at goal ([facility]) 05/29/2002 Overview: Modified per Diabetes protocol #14. [...] Telephone Encounter - Migue Whiteside DO - 06/07/2018 9:09 AM EDT Signed Prescriptions: Disp Refills sertraline (ZOLOFT) 100 MG Tablet 135 Tab1 Sig: TAKE ONE AND ONE-HALF TABLETS BY MOUTH DAILY Authorizing Provider: MIGUE WHITESIDE * Telephone Encounter - Jennifer Cesar LPN - 06/07/2018 8:44 AM EDT Pending Prescriptions: Disp Refills sertraline (ZOLOFT) 100 MG Tablet [Pharma*135 Tab1 Sig: TAKE ONE AND ONE-HALF TABLETS BY MOUTH DAILY * Telephone Encounter - Frances Ceballos LPN - 06/07/2018 8:37 AM EDT Pending Prescriptions: Disp Refills sertraline (ZOLOFT) 100 MG Tablet [Pharma*135 Tab1 Sig: TAKE ONE AND ONE-HALF TABLETS BY MOUTH DAILY * Telephone Encounter - Francse Ceballos LPN - 06/07/2018 8:36 AM EDT Formatting of this note may be different from the original. Pending Prescriptions: Disp Refills sertraline (ZOLOFT) 100 MG Tablet [Pharma*135 Tab1 Sig: TAKE ONE AND ONE-HALF TABLETS BY MOUTH DAILY Last Office Visit: 06/05/2018 Next Office Visit: 08/01/2018 Scheduled Provider(s): Migue Whiteside DO Last date the medication was ordered: 12/29/17 Patient Active Problem List Diagnosis Code Other [...] [place]ILL) Z68.43 Controlled substance agreement signed Z79.899 Labs: CREATININE(mg/dL) Nessa Dt/Tm Resulted Value Status 06/05/18 11:49A 06/05/18 1.1* FINAL POTASSIUM(mmol/L) Nessa Dt/Tm Resulted Value Status 06/05/18 11:49A 06/05/18 5.2* FINAL TSH(uIU/mL) Nessa Dt/Tm Resulted Value Status 05/01/18 9:12A 05/01/18 3.14 FINAL LDL (DIRECT MEASURE)(mg/dL) Nessa Dt/Tm Resulted Value Status 07/14/17 12:35P 07/14/17 109 FINAL 10/28/16 1:24P 10/28/16 119 FINAL ALT(U/L) Nessa Dt/Tm Resulted Value Status 12/29/17 12:43P 12/29/17 40* FINAL Hemoglobin AIC Results: HEMOGLOBIN, A1C(%) Nessa Dt/Tm Resulted Value Status 05/01/18 9:12A 05/01/18 10.0* FINAL 12/29/17 12:43P 12/29/17 11.6* FINAL 07/14/17 12:35P 07/14/17 9.3* FINAL in this encounter Plan of Treatment Upcoming Encounters Date Type Specialty Care Team Description 06/27/2018 Pharmacy [facility], [facility] [address] [place] [facility] [address] [phone] 08/01/2018 Office Visit Family Medicine Migue Whiteside DO [address] [address] [address] [phone] 05/04/2019 Office Visit Sleep Disorders Celsa Tafoya CRNP [address] [address] [phone] Health Maintenance Due Date Last Done Comments [...] 2018 07/14/2017, 06/24/2016, 07/24/2015, Additional history exists *NEPHROLOGY REFERRAL DUE TO RESISTANT HTN 06/07/2018 DIABETES-HGBA1C EVERY 6 MONTHS 11/01/2018 0 05/01/2018, 12/29/2017, 07/14/2017, Additional history exists CKD GFR USE SMARTSET 10378 12/03/201806/05, 05/16/2018, 05/01/2018, Additional history exists CKD PHOS USE SMARTSET 23870 12/29/2018 04/0 01/2018, 08/26/2009, 08/25/2009, Additional history exists DIABETES-FOOT EXAM 12/29/2018 12/29/2017, 0 10/21/2016, 12/11/2015, Additional history exists Yearly B-12 05/16/2019 05/16/2018 CKD HGB USE SMARTSET 38274 06/05/201906/05, 12/26/2017, 05/21/2017, Additional history exists PNEUMOCOCCAL 19-64 MEDIUM RISK Completed 08/22/2009 , 06/15/2006 as of this encounter Implants Not on fileas of this encounter Visit Diagnoses Diagnosis Depression with anxiety Dysthymic disorder in this encounter
--- OUTSIDE RECORDS SUMMARY | 2023-06-01 06:02 | External Medical Summary | Summary of Care ---
Author Name Unknown Organization [place] [address] Phone Care Team Providers Care Data Modeling Specialist Name Role Phone WhitesideCareyr Lisa Primary Care Provider Reason for Visit * Reason Comments Dosage Adjustment Via Phone (anticoag Cl inic) DIABETES FOLLOW-UP HOSPITAL FOLLOW-UP Encounter Details Date Type Department Care Team Description 06/13/2018 Pharmacy Pharmacy, [facility] [address] [facility] [place] [address] Sp, [facility] [address] [place] [address] [phone] Type 2 diabetes mellitus with hemoglobin A1c goal of 7.0%-8.0% ([facility])* Allergies Active Allergy Reactions [...] goal of 7.0%-8.0% ([facility]) Inject 66 Units under the skin 2 [...] Date Acute diastolic congestive heart failure ([facility]) 06/12/2018 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[facility]) 0 06/12/2018 ELSIE (acute kidney injury) ([facility]) 06/12/20 18 Controlled substance agreement signed Body mass index (BMI) of 50.0 to 59.9 in adult ([facility]) 06/27/2017 Overview: Per Obesity protocol #1 - Per Obesity Taxonomy ICD-10 update of inactive term Uncontrolled type 2 diabetes mellitus with stage 3 chronic kidney disease, with long-term current use of insulin ([facility]) 05/24/2017 Gastroesophageal reflux disease with eso phagitis 03/04/2017 Restless legs syndrome 03/25/2016 Fibromyalgia 02/02/2016 Abnormality of gait 02/02/2016 Type 2 diabetes mellitus with hemoglobin A1c goal of 7.0%-8.0% ([facility]) 10/14/2014 Overview: ICD-10 update of inactive term [place] filter in place 08/19/2014 History of pulmonary [...] (BMI) of 40.0-44.9 in adult ([facility] ) 08/17/2010 05/24/2017 Obesity, morbid (more than 1 00 lbs over ideal weight or BMI > 40) ([facility]) 12/23/2009 06/30/2017 Overview: Per Obesity Taxonomy ICD-10 update of inactive term HTN, GOAL BELOW 130/80 10/22/2009 2 Overview: Per HTN Taxonomy. Pneumonia in aspergillosis ([facility]) 09/14/2009 02/15/2017 Venous thrombosis 09/14/2009 10/15/2010 Respiratory failure, acute ([facility]) 09/14/2009 02/15/2017 Spontaneous pneumothorax 09/14/2009 017 Dysuria 08/23/2009 02/15/2017 History of heparin-induced thrombocytopenia 07/2806/12/2018 Type 2 diabetes mellitus wit h hemoglobin A1c goal of less than 7.0% ([facility]) 07/10/2009 10/14/2014 Overview: Modified per Diabetes protocol #14. ICD-10 update of inactive term Dyslipidemia, goal LDL below 160 08/16/2007 09/04/2009 Overview: Per Lipid Taxonomy. HTN, goal below 140/90 04/09/2003 0 Overview: Per HTN Taxonomy. DM type 2, not at goal ([facility]) 05/29/2002 Overview: Modified per Diabetes protocol #14. [...] this encounter Progress Notes * Frances Ellis, [facility] - 06/13/2018 3:44 PM EDT Formatting of this note may be different from the original. Diabetes telephone follow - up 06/13/2018 Patient Phone Numbers - Reason for call: Patient admitted to [facility] on 06/06 for elevated trops/pneumonia. Patient was discharged 06/10 with instructions to discontinue Metformin due to renal disease and to continue Lantus, Novolog, and Victoza. Patient advised by PCP to start sliding scale for Novolog. systems program manager advised her to take CF 2:50over 100 in addition to mealtime doses. Based on insulin requirements, patient's CF could be as stringent as 1:12 over 140. - Current diabetic medications: Lantus/basaglar - 66 units twice daily Victoza 1.8 mg daily discontinued during inpatient stay due to ELSIE Novolog 5 units with breakfast and lunch, 10 units at dinner + CF 2:50 over 100 Results for orders placed or performed in visit on 06/12/18 BASIC METAB PANEL, BMP Result Value Ref Range BUN 35 (H) 6 - 20 mg/dL CREATININE 1.3 (H) 0.5 - 1.0 mg/dL E GLOM FILT RATE 42.4 (L) >60 SODIUM 138 135 - 146 mmol/L POTASSIUM 4.9 3.5 - 5.1 mmol/L CHLORIDE 96 (L) 98 - 107 mmol/L CO2 27 22 - 32 mmol/L ANION GAP 15 7 - 15 mmol/L GLUCOSE 258 (H) 70 - 120 mg/dL CALCIUM 9.3 8.4 - 10.2 mg/dL MAGNESIUM Result Value Ref Range MAGNESIUM 1.6 1.5 - 2.6 mg/dL *Note: Due to a large number of results and/or encounters for the requested time period, some results have not been displayed. A complete set of results can be found in Results Review. Therapy Management Assessment/Plan: 1) Diabetes: Left message for patient to call me back. Otherwise will follow up with patient at theend of the week and possibly send new correction scale and/or adjust mealtime novolog doses as needed. Will keep patient off metformin for now, but could be added back as kidney function improves. Follow up in 3 days. Frances Duong, Pharm D, BCACP Clinical Pharmacist [facility]ication [facility] 06/13/2018, 3:46 PM in this encounter Plan of Treatment Upcoming Encounters Date Type Specialty Care Team Description 06/16/2018 Pharmacy Pharmacy , [facility] [address] [facility] [place] [address] [phone] 06/23/2018 Imaging Radiology 06/23/2018 Office Visit Cardiology Rey Woodall MD [address] [place] [address] [phone] 06/27/2018 Pharmacy Pharmacy , [facility] [address] [facility] [place] [address] [phone] 07/13/2018 Office Visit Nephrology Gia White MD [address] [place] [address] [id number] 08/01/2018 Office Visit Family Medicine Kevin Whiteside [address] [place] [address] [phone] 05/04/2019 Office Visit Sleep Disorders Celsa Tafoya CRNP [address] [place] [address] [phone] Health Maintenance Due Date Last Done Comments [...] Additional history exists CKD GFR USE SMARTSET 06272 12/10/201806/12, 06/05/2018, 05/16/2018, Additional history exists CKD PHOS USE SMARTSET 14876 12/29/2018 12/29/2017, 08/26/2009, 08/25/2009, Additional history exists DIABETES-FOOT EXAM 12/29/2018 12/29/2017, 0 10/21/2016, 12/11/2015, Additional history exists Yearly B-12 05/16/2019 05/16/2018 CKD HGB USE SMARTSET 54595 06/05/201906/05, 12/26/2017, 05/21/2017, Additional history exists PNEUMOCOCCAL [...] Visit Diagnoses Diagnosis Type 2 diabetes mellitus wit h hemoglobin A1c goal of 7.0%-8.0% ([facility]) - Primary in this encounter
--- OUTSIDE RECORDS SUMMARY | 2023-06-01 06:02 | External Medical Summary | Summary of Care ---
Author Name Unknown Organization [place] [address] Phone Care Team Providers Care Press Operator Helper Name Role Phone Kevin Whiteside DO Primary Care Provider Encounter Details Date Type Department Care Team Description 06/08/2018 Orders Only Outcomes Research Department [address] [place], [place] [id number] Kevin Whiteside DO [address] [place] [address] [employer] Other*[id number] Allergies Active Allergy Reactions Severity Noted Date [...] of 7.0%-8.0% ([facility]) Inject 66 Units under the skin 2 times a day. Titrate by 2 units until SBGM <150 2 Pre-filled Pen Syringe Dosing Unit 11 05/24/2017 Active clonazePAM (KLONOPIN) 0.5 MG TabletIndications:Anx iety state Take 1 Tab by mouth 2 times a day. 180 Tab 1 07/14/2017 Active hydrochlorothiazide (HYDRODIURIL) 12.5 MG CapsuleIndications:HT N, [...] Active metFORMIN ER (GLUCOPHAGE XR) 500 MG [id number]:Uncon trolled type 2 diabetes mellitus with stage [...] 0 06/05/2018 Active sertraline (ZOLOFT) 100 MG TabletIndications:Dep ression with anxiety TAKE ONE AND ONE-HALF TABLETS BY MOUTH DAILY 135 Tab 1 06/07/2018 Active as of this encounter Active Problems Problem Noted Date Controlled substance agreement signed Body mass index (BMI) of 50.0 to 59.9 in adult ([facility]) 06/27/2017 Overview: Per Obesity protocol #1 - Per Obesity Taxonomy ICD-10 update of inactive term Uncontrolled type 2 diabetes mellitus with stage 3 chronic kidney disease, with long-term current use of insulin ([facility]) 05/24/2017 Gastroesophageal reflux disease with eso phagitis 03/04/2017 Restless legs syndrome 03/25/2016 Fibromyalgia 02/02/2016 Abnormality of gait 02/02/2016 Type 2 diabetes mellitus with hemoglobin A1c goal of 7.0%-8.0% ([facility]) 10/14/2014 Overview: ICD-10 update of inactive term [place] filter in place 08/19/2014 History of [...] [facility] Postsurgical hypothyroidism 06/16/2011 Depression with anxiety 09/13/2009 [...] index (BMI) of 40.0-44.9 in adult ([facility] ) 08/17/2010 05/24/2017 Obesity, morbid (more than 1 00 lbs over ideal weight or BMI > 40) ([facility]) 12/23/2009 06/30/2017 Overview: Per Obesity Taxonomy ICD-10 update of inactive term HTN, GOAL BELOW 130/80 10/22/2009 2 Overview: Per HTN Taxonomy. Pneumonia in aspergillosis ([facility]) 09/14/2009 02/15/2017 Venous thrombosis 09/14/2009 10/15/2010 Respiratory failure, acute ([facility]) 09/14/2009 02/15/2017 Spontaneous pneumothorax 09/14/2009 017 Dysuria 08/23/2009 02/15/2017 Type 2 diabetes mellitus wit h hemoglobin A1c goal of less than 7.0% ([facility]) 07/10/2009 10/14/2014 Overview: Modified per Diabetes protocol #14. ICD-10 update of inactive term Dyslipidemia, goal LDL below 160 08/16/2007 09/04/2009 Overview: Per Lipid Taxonomy. HTN, goal below 140/90 04/09/2003 0 Overview: Per HTN Taxonomy. DM type 2, not at goal ([facility]) 05/29/2002 Overview: Modified per Diabetes [...] Care Team Description 06/27/2018 Pharmacy Pharmacy Sp, [facility] [address] [facility] [address] [phone] 08/01/2018 Office Visit Family Medicine Kevin Whiteside DO [address] [place] [address] [address] [phone] 05/04/2019 Office Visit Sleep Disorders Celsa Tafoya CRNP [address] [place] [address] [address] [phone] Scheduled Tests Name Priority Associated Diagnoses Order S chedule MYCODE SUBSEQUENT ADULT Routine MyCode Research Other*[id number] Every 6 Months for 2 Occurrences starting 06/08/2018 until 06/28/2019 Health Maintenance Due Date Last Done Comments [...] Additional history exists CKD GFR USE SMARTSET 34385 12/03/201806/05, 05/16/2018, 05/01/2018, Additional history exists CKD PHOS USE SMARTSET 40227 12/29/2018 04/0 01/2018, 08/26/2009, 08/25/2009, Additional history exists DIABETES-FOOT EXAM 12/29/2018 12/29/2017, 0 10/21/2016, 12/11/2015, Additional history exists Yearly B-12 05/16/2019 05/16/2018 CKD HGB USE SMARTSET 49196 06/05/201906/05, 12/26/2017, 05/21/2017, Additional history exists PNEUMOCOCCAL 19-64 MEDIUM RISK Completed 08/22/2009 , 06/15/2006 as of this encounter Implants Not on fileas of this encounter Visit Diagnoses Diagnosis MYCODE RESEARCH OTHER*[id number] in this encounter
--- OUTSIDE RECORDS SUMMARY | 2023-06-01 06:02 | External Medical Summary | Summary of Care ---
Author Name Unknown Organization [place] [address] Phone Care Team Providers Care Suction Dredge Dumping Supervisor Name Role Phone Kevin Carmona DO Primary Care Provider Reason for Visit * Reason Comments ADVICE Encounter Details Date Type Department Care Team Description 06/05/2018 Telephone Family Practice [facility] [address] [facility] [address] [facility] [address] [facility] [address] ADVICE Allergies Active Allergy Reactions Severity [...] goal of 7.0%-8.0% ([facility]) Inject 66 Units under the [...] Active metFORMIN ER (GLUCOPHAGE XR) 500 MG [id number]:Uncon trolled type 2 diabetes mellitus with stage [...] to 59.9 in adult ([facility]) 06/27/2017 Overview: Per Obesity protocol #1 - Per Obesity Taxonomy ICD-10 update of inactive term Uncontrolled type 2 diabetes mellitus with stage 3 chronic kidney disease, with long-term current use of insulin ([facility]) 05/24/2017 Gastroesophageal reflux disease with eso phagitis 03/04/2017 Restless legs syndrome 03/25/2016 Fibromyalgia 02/02/2016 Abnormality of gait 02/02/2016 Type 2 diabetes mellitus with hemoglobin A1c goal of 7.0%-8.0% ([facility]) 10/14/2014 Overview: ICD-10 update of inactive term [place] filter in place 08/19/2014 History of pulmonary [...] mass index (BMI) of 40.0-44.9 in adult ([facility] ) 08/17/2010 05/24/2017 Obesity, morbid (more than 1 00 lbs over ideal weight or BMI > 40) ([facility]) 12/23/2009 06/30/2017 Overview: Per Obesity Taxonomy ICD-10 update of inactive term HTN, GOAL BELOW 130/80 10/22/2009 2 Overview: Per HTN Taxonomy. Pneumonia in aspergillosis ([facility]) 09/14/2009 02/15/2017 Venous thrombosis 09/14/2009 10/15/2010 Respiratory failure, acute ([facility]) 09/14/2009 02/15/2017 Spontaneous pneumothorax 09/14/2009 017 Dysuria 08/23/2009 02/15/2017 Type 2 diabetes mellitus wit h hemoglobin A1c goal of less than 7.0% ([facility]) 07/10/2009 10/14/2014 Overview: Modified per Diabetes protocol #14. ICD-10 update of inactive term Dyslipidemia, goal LDL below 160 08/16/2007 09/04/2009 Overview: Per Lipid Taxonomy. HTN, goal below 140/90 04/09/2003 0 Overview: Per HTN Taxonomy. DM type 2, not at goal ([facility]) 05/29/2002 Overview: Modified per Diabetes [...] Telephone Encounter - Izabela Crump LPN - 06/06/2018 12:00 PM EDT Called and advised pt, pt reporting to ER now. Called and spoke to Zeb, ER Charge nurse, and made aware. Faxed office notes, labs, and imaging results to ER. * Telephone Encounter - Kevin Carmona DO - 06/06/2018 11:44 AM EDT Troponin high on testing resulted - please instruct patient to proceed to ED for further work up. Please also call ahead to let ED know that patient with SOB and positive troponin is coming in. Thankyou * Telephone Encounter - Flaca Real LPN - 06/05/2018 10:12 AM EDT Pt has had SOB x 2 weeks She has a dry cough sched today with Dr carmona * Telephone Encounter - Kaelyn Garsia OSA - 06/05/2018 10:10 AM EDT Reason for patient's call: pt having difficulty breathing Caller was transferred to Flaca at the dedicated phone nurse line. in this encounter Plan of Treatment Upcoming Encounters Date Type Specialty Care Team Description 06/27/2018 Pharmacy [facility]acy [facility] [address] [place], [place] [address] [phone] 08/01/2018 Office Visit Family Medicine Kevin Carmona, [address] [place] [address] [address] [phone] 05/04/2019 Office Visit Sleep Disorders Celsa Tafoya CRNP [address] [place] [address] [address] [phone] Health Maintenance Due Date Last Done Comments DIABETES-EYE EXAM 02/24/2011 02/24/2010 (Do ne elsewhere), 12/18/2009, 02/18/2008 (Done elsewhere) Zoster Vaccines HMT (2 of 3) 02/05/2016 12/11/2015 BREAST CANCER SCREENING DISC USSION YEARLY AGES 40-75 05/09/2016 05/09/2015, 07/12/2014, 07/04/2014, Additional history exists PAP SMEAR-EVERY 3 YRS,AGES 21-65 05/11/2016 05/11/2013, 03/01/2008, 10/19/2006, Additional history exists *DEPRESSION SCREENING, ANNUA L FOR PTS 18 AND OVER 03/07/2018 Influenza Vaccine (FLU shot) (#1) 2018 07/14/2017, 06/24/2016, 07/24/2015, Additional history exists DIABETES-HGBA1C EVERY 6 MONTHS 11/01/2018 0 05/01/2018, 12/29/2017, 07/14/2017, Additional history exists CKD GFR USE SMARTSET 85608 12/03/201806/05, 05/16/2018, 05/01/2018, Additional history exists CKD PHOS USE SMARTSET 13523 12/29/2018 04/0 01/2018, 08/26/2009, 08/25/2009, Additional history exists DIABETES-FOOT EXAM 12/29/2018 12/29/2017, 0 10/21/2016, 12/11/2015, Additional history exists Yearly B-12 05/16/2019 05/16/2018 CKD HGB USE SMARTSET 04033 06/05/201906/05, 12/26/2017, 05/21/2017, Additional history exists PNEUMOCOCCAL 19-64 MEDIUM RISK Completed 08/22/2009 , 06/15/2006 as of this encounter Implants Not on fileas of this encounter
--- OUTSIDE RECORDS SUMMARY | 2023-06-01 06:02 | External Medical Summary | Summary of Care ---
Author Name Unknown Organization [place] [address] Phone Care Team Providers Care Patient Intake Coordinator Name Role Phone Kevin Whiteside Primary Care Provider Reason for Visit * Reason Comments case management Encounter Details Date Type Department Care Team Description 06/13/2018 Telephone Internal Medicine [address] [address] Frances Nicholson RN [address] [place] [address] case management Allergies Active Allergy Reactions [...] 7.0%-8.0% ([facility]) Inject 66 Units under the skin [...] Noted Date Acute diastolic congestive heart failure ([facility]) 06/12/2018 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[facility]) 0 06/12/2018 ELSIE (acute kidney injury) ([facility]) 06/12/20 18 Controlled substance agreement signed Body mass index (BMI) of 50.0 to 59.9 in adult ([facility]) 06/27/2017 Overview: Per Obesity protocol #1 - Per Obesity Taxonomy ICD-10 update of inactive term Uncontrolled type 2 diabetes mellitus with stage 3 chronic kidney disease, with long-term current use of insulin ([facility]) 05/24/2017 Gastroesophageal reflux disease with eso phagitis 03/04/2017 Restless legs syndrome 03/25/2016 Fibromyalgia 02/02/2016 Abnormality of gait 02/02/2016 Type 2 diabetes mellitus with hemoglobin A1c goal of 7.0%-8.0% ([facility]) 10/14/2014 Overview: ICD-10 update of inactive term [place] filter in place 08/19/2014 History of pulmonary [...] mass index (BMI) of 40.0-44.9 in adult ([facility] ) 08/17/2010 05/24/2017 Obesity, morbid (more than 1 00 lbs over ideal weight or BMI > 40) ([facility]) 12/23/2009 06/30/2017 Overview: Per Obesity Taxonomy ICD-10 update of inactive term HTN, GOAL BELOW 130/80 10/22/2009 2 Overview: Per HTN Taxonomy. Pneumonia in aspergillosis ([facility]) 09/14/2009 02/15/2017 Venous thrombosis 09/14/2009 10/15/2010 Respiratory failure, acute ([facility]) 09/14/2009 02/15/2017 Spontaneous pneumothorax 09/14/2009 017 Dysuria 08/23/2009 02/15/2017 History of heparin-induced thrombocytopenia 07/2806/12/2018 Type 2 diabetes mellitus wit h hemoglobin A1c goal of less than 7.0% ([facility]) 07/10/2009 10/14/2014 Overview: Modified per Diabetes protocol #14. ICD-10 update of inactive term Dyslipidemia, goal LDL below 160 08/16/2007 09/04/2009 Overview: Per Lipid Taxonomy. HTN, goal below 140/90 04/09/2003 0 Overview: Per HTN Taxonomy. DM type 2, not at goal ([facility]) 05/29/2002 Overview: Modified per Diabetes protocol #14. TENOSYNOVITIS FOOT-ANKLE 12/26/2001 017 Goiter 01/13/2000 06/28/2011 BACKACHE NOS 08/26/1999 05/24/2017 OBESITY, UNSPECIFIED 08/26/1999 12/23/2009 Overview: Per Obesity Taxonomy Perforation of intestine ([facility]) 0 02/15/2017 Overview: COLON Diverticulitis as [...] Miscellaneous Notes * Telephone Encounter - Nayeli Vega OSA - 06/13/2018 4:04 PM EDT Pt was returning call, please advise [phone] * Telephone Encounter - Frances Nicholson RN - 06/13/2018 2:25 PM EDT Call placed to phone number listed in [facility]. No answer, left message on requesting return call Frances Nicholson RN, [facility] Stock Parts Inspector [phone] in this encounter Plan of Treatment Upcoming Encounters Date Type Specialty Care Team Description 06/16/2018 Pharmacy Pharmacy Sp, [facility] [address] [place] [address] [phone] 06/23/2018 Imaging Radiology 06/23/2018 Office Visit Cardiology Rey Woodall MD [address] [place] [address] [address] [phone] 06/27/2018 Pharmacy Pharmacy Sp, [facility] [address] [facility] [place] [address] [phone] 07/13/2018 Office Visit Nephrology Gia White MD [address] [place] [address] [id number] 08/01/2018 Office Visit Family Medicine Kevin Whiteside, [address] [place] [address] [address] [phone] 05/04/2019 Office Visit Sleep Disorders Celsa Tafoya CRNP [address] [place] [address] [phone] Health Maintenance Due Date Last Done Comments [...] Additional history exists CKD GFR USE SMARTSET 02391 12/10/201806/12, 06/05/2018, 05/16/2018, Additional history exists CKD PHOS USE SMARTSET 87167 12/29/2018 12/29/2017, 08/26/2009, 08/25/2009, Additional history exists DIABETES-FOOT EXAM 12/29/2018 12/29/2017, 0 10/21/2016, 12/11/2015, Additional history exists Yearly B-12 05/16/2019 05/16/2018 CKD HGB USE SMARTSET 73346 06/05/201906/05, 12/26/2017, 05/21/2017, Additional history exists PNEUMOCOCCAL [...]
--- OUTSIDE RECORDS SUMMARY | 2023-06-01 06:03 | External Medical Summary | Summary of Care ---
Author Name Unknown Organization [place] [address] Phone Care Team Providers Care Reproductive Surgeon Name Role Phone Kevin Whiteside Primary Care Provider Reason for Visit * Reason Comments FOLLOW UP annual check up Encounter Details Date Type Department Care Team Description 05/02/2018 Office Visit Sleep Disorders, [facility] [address] [facility] [address] Celsa Tafoya CRNP [address] [place] [address] [phone] ELISSA on CPAP*;RLS (restless legs syndrome) Allergies Active Allergy Reactions Severity Noted Date Comments Heparin 09/04/2009 Heparin Induced Thrombocytopenia Morphine And [...] tabs daily 135 Tab 1 12/29/2017 Active BD PEN NEEDLE SHORT U/F 31G X 8 MM use twice daily 100 Box Dosing Unit 11 01/23/2018 Active hydrochlorothiazide (HYDRODIURIL) 12.5 MG CapsuleIndications:HT N, [...] as directed 100 Strip 5 02/08/2018 Active empagliflozin (JARDIANCE) 25 MG TABS Take 1 Tab by mouth daily. 30 Tab 5 03/07/2018 Active metFORMIN ER (GLUCOPHAGE XR) 500 MG [id number]:Uncon trolled type 2 diabetes mellitus with stage [...] MUSCLE SPASM 30 Tab 2 05/01/2018 Active fluconazole (DIFLUCAN) 150 MG Tablet Take 1 Tab by mouth every other day for 2 doses. 2 Tab 0 05/01/2018 05/04/2018 Active as of this encounter Active Problems [...] t, with Preserve, 3yr & Above, Split 06/13/2014,07/07/2012,06/28/2011,05/28,08/01/2009,07/04/2008,08/14/20,10/19/2006,08/07/2004,09/04/2002 Varicella Zoster Vaccine (Adult) 12/11/2015 as of this encounter Social History Tobacco Use Types Packs/Day Years Used Date Former Smoker 1 15 Quit: 08/26 Smokeless Tobacco: Never Used Alcohol Use Drinks/Week oz/Week Comments Yes rare Sex Assigned at Date Recorded Not on file as of this encounter Last Filed Vital Signs Vital Sign Reading Time Taken Blood Pressure 124/72 05/02/2018 2:37 PM EDT Pulse 100 05/02/2018 2:37 PM EDT Temperature - - Respiratory Rate - - Oxygen Saturation - - Inhaled Oxygen Concentration - - Weight 153.8 kg (339 lb) 05/02/2018 2:3 7 PM EDT Height - - Body Mass Index 58.19 05/02/2018 2:37 PM EDT in this encounter Instructions * Patient Instructions - Celsa Tafoya CRNP - 05/02/2018 3:00 PM EDT For RLS: Stop ropinirole. Dose gabapentin 300mg in the evening and bedtime (can continue mid day dosing if needed). in this encounter Progress Notes * Celsa Tafoya CRNP - 05/02/2018 2:49 PM EDT Formatting of this note may be different from the original. SLEEP MEDICINE Name: Stephanie Camp [facility] [place] MR #: [id number] Date: 05/02/2018 HISTORY: Yearly f/u for ELISSA on CPAP with RLS. - 07/2011 (332 lbs) AHI 11.3. Significant hypoxemia - 09/2012 titration 11cwp but was suboptimal - NPO CPAP/2L 03/25/16: <89% 40 mins, CPAP use confirmed, AHI 0.3, no excessive leak DME company: [employer] Settings: CPAP 11 cwp Cleaning: yes CPAP used 7 nights/week. Sleep schedule is 11p - 6a (per cats). Cats will turn off the device or pull off the tubing. Naps some days, generally 30 minutes. Notes that pain from fibromyaligia impacts her sleep at night. Denies drowsy driving or near missed accidents. Ropinerole 1mg taken 7-8pm. Gabapentin taken mid day and at bedtime. RLS symptom onset as early as 8p. EPWORTH SLEEPINESS SCALE: 03/19 Modified FOSQ 10: 38/40 Weight loss efforts: Diabetic clinic for nutritional guidance, no exercise COMPLIANCE DATA 01/24/18 - 04/23/18: Percent of Days with Device Usage - 100% Avg usage days used - 5 hrs 44 mins Percent of days with usage >=4 hours - 88% Avg time in large leak per day - 3 mins AHI 0.1 ROS: Constitutional: no fever, chills, sweats, or unexplained weight loss ENT: no headaches or throat problems; +chronic sinus issues/allergies Cardiovascular: no chest pain, palpitations, or lower extremity edema. Pulmonary: no cough, or wheezing; +baseline AVENDAÑO Other than medication changes, denies change in PMH, PSH or family history in the interim of care. No hospitalizations. Patient Active Problem List Diagnosis Code Other allergic rhinitis J30.89 ADVANCE DIRECTIVE INFORMATION Primary localized osteoarthrosis, lower leg M17.10 History of heparin-induced thrombocytopenia Z86.2 DYSLIPIDEMIA, GOAL LDL BELOW 100 E78.5 Depression with anxiety F41.8 Postsurgical hypothyroidism E89.0 Hypoxemia R09.02 ELISSA (obstructive sleep apnea) G47.33 Venous insufficiency I87.2 HTN, goal below 130/80 I10 History of pulmonary embolus (PE) Z86.711 Statin intolerance Z78.[address] [place] filter [address] Z95.828 Type 2 diabetes [...] CENTER) Z68.43 Controlled substance agreement signed Z79.899 Outpatient Prescriptions Marked as Taking for the 05/02/18 encounter (Office Visit) with TATIANA Negrete Medication Sig cyclobenzaprine (FLEXERIL) 10 MG Tablet TAKE ONE TABLET BY MOUTH AT BEDTIME NEEDED FOR MUSCLE SPASM fluconazole (DIFLUCAN) 150 MG Tablet Take 1 Tab by mouth every other day for 2 doses. metoprolol tartrate (LOPRESSOR) 25 MG Tablet TAKE ONE TABLET BY MOUTH TWICE DAILY levothyroxine (LEVOXYL) 25 MCG Tablet TAKE ONE TABLET BY MOUTH IN THE MORNING AT LEAST 30 MINUTES PRIOR TO BREAKFAST OR OTHER MEDS gabapentin (NEURONTIN) 300 MG Capsule take 1 capsule by mouth twice daily for 2 weeks then switch to 1 three times daily (often skips morning dose) lisinopril (PRINIVIL) 10 MG Tablet TAKE ONE TABLET BY MOUTH DAILY rOPINIRole (REQUIP) 1 MG Tablet TAKE ONE TABLET BY MOUTH AT BEDTIME empagliflozin (JARDIANCE) 25 MG TABS Take 1 Tab by mouth daily. metFORMIN ER (GLUCOPHAGE XR) 500 MG TB24 Take 4 Tabs by mouth daily. Glucose Blood (ONETOUCH ULTRA BLUE) STRP Check sugars twice daily as directed liraglutide (VICTOZA) 18 MG/3ML SOPN Inject 1.8 mg under the skin daily. As directed ONETOUCH DELICA LANCETS 33G MISC Check blood sugars twice daily as directed Nortriptyline HCl (PAMELOR) 50 MG Capsule Take 1 Cap by mouth at bedtime. hydrochlorothiazide (HYDRODIURIL) 12.5 MG Capsule Take 1 Cap by mouth daily. levothyroxine (LEVOXYL) 200 MCG Tablet Take 1 Tab by mouth daily. (at least 30 min prior to breakfast or other meds) BD PEN NEEDLE SHORT U/F 31G X 8 MM use twice daily sertraline (ZOLOFT) 100 MG Tablet 1 1/2 tabs daily clonazePAM (KLONOPIN) 0.5 MG Tablet Take 1 Tab by mouth 2 times a day. insulin glargine (INSULIN GLARGINE) 100 UNIT/ML SOPN Inject 66 Units under the skin 2 times a day. Titrate by 2 units until SBGM <150 docusate sodium (STOOL SOFTENER) 100 MG Capsule Take 100 mg by mouth 2 times a day as needed for Constipation. oxygen GAS 4 LPM bled through CPAP 11 cwp during all periods of sleep. PRILOSEC 20 MG PO CPDR one tablet daily PHYSICAL EXAM: BP 124/72 | Pulse 100 | Wt 339 lbs (153.769kg) | BMI 58.19 kg/m | BSA 2.64 m | LMP 03/11/2003 Constitutional: Alert, oriented in no acute distress, accompanied by self Cardio: Regular rate and rhythm. No edema. Chest: Normal respiratory effort at rest, equal breath sounds, clear to ascultation. Abdomen: Abdomen soft, non-tender and obese. Neuro: Fluent speech, no focal motor deficits, gait steady. Psych: Appropriate mood and affect. ASSESSMENT/PLAN: Encounter Diagnoses Name Primary? ELISSA on CPAP Yes RLS (restless legs syndrome) Encouraged continued use of CPAP to include all periods of sleep. Recommended routine cleaning and change of supplies as needed. Blood pressure was 124/72 today. JNC 7 lists ELISSA as a causal risk factor for hypertension. Effective treatment of hypertension decreases cardiovascular risk/injury. Lifestyle modification with diet and exercise changes were encouraged because weight loss often results in improvement of sleep disordered breathing. Avoid driving, operating heavy machinery or engaging in any activity that requires full alertness if feeling sleepy, drowsy or otherwise impaired. Check ferritin. Stop ropinirole. Increase gabapentin to 300 mg at dinner and 300 mg at bedtime. Follow-up with Sleep Medicine in 12 months. Celsa Tafoya MS, NURSING AGENCY MANAGER Pulmonary & Sleep Medicine [facility] in this encounter Nursing Notes * Evelyne Vee LPN - 05/02/2018 2:38 PM EDT Formatting of this note may be different from the original. Chief Complaint Patient presents with FOLLOW UP annual check up in this encounter Plan of Treatment Upcoming Encounters Date Type Specialty Care Team Description 05/16/2018 Pharmacy Pharmacy Sp, [facility] [address] [facility] [place] [address] [phone] 08/01/2018 Office Visit Family Medicine Kevin Whiteside, [address] [place] [address] [phone] 05/04/2019 Office Visit Sleep Disorders Celsa Tafoya CRNP [address] [place] [address] [phone] Scheduled Tests Name Priority Associated Diagnoses Order S chedule FERRITIN Routine RLS (restless legs syndrome) Expected: 05/02/2018 (Approximate), Expires: 08/02/2018 Health Maintenance Due Date Last Done Comments Yearly B-12 1955 DIABETES-EYE EXAM 02/24/2011 02/24/2010 (Do ne elsewhere), 12/18/2009, 02/18/2008 (Done elsewhere) BREAST CANCER SCREENING DISC USSION YEARLY AGES 40-75 05/09/2016 05/09/2015, 07/12/2014, 07/04/2014, Additional history exists PAP SMEAR-EVERY 3 YRS,AGES 21-65 05/11/2016 05/11/2013, 03/01/2008, 10/19/2006, Additional history exists *DEPRESSION SCREENING, ANNUA L FOR PTS 18 AND OVER 03/07/2018 *TSH FOR THYROID MEDICATION MONITORING YEARLY 03/07/2018 Influenza Vaccine (FLU shot) (#1) 2018 07/14/2017, 06/24/2016, 07/24/2015, Additional history exists DIABETES-LDL EVERY 12 MONTHS 07/14/2018, 10/28/2016, 06/24/2016, Additional history exists CKD GFR USE SMARTSET 72235 11/01/201805/01, 12/29/2017, 12/26/2017, Additional history exists DIABETES-HGBA1C EVERY 6 MONTHS 11/01/2018 0 05/01/2018, 12/29/2017, 07/14/2017, Additional history exists CKD HGB USE SMARTSET 77009 12/26/201812/26, 05/21/2017, 05/05/2017, Additional history exists CKD PHOS USE SMARTSET 15344 12/29/2018 04/0 01/2018, 08/26/2009, 08/25/2009, Additional history exists DIABETES-FOOT EXAM 12/29/2018 12/29/2017, 0 10/21/2016, 12/11/2015, Additional history exists PNEUMOCOCCAL 19-64 MEDIUM RISK Completed 08/22/2009 , 06/15/2006 as of this encounter Implants Not on fileas of this encounter Visit Diagnoses Diagnosis ELISSA on CPAP - Primary Obstructive sleep apnea (adult) (pediatric) RLS (restless legs syndrome) Restless legs syndrome (RLS) in this encounter"
--- OUTSIDE RECORDS SUMMARY | 2023-06-01 06:03 | External Medical Summary | Summary of Care ---
Author Name Unknown Organization [place] [address] Phone Care Team Providers Care Analytical Research Chemist Name Role Phone Sanjiv Tolliver DO Primary Care Provider [phone] Reason for Visit * Reason Comments eRx-Medication Refill Encounter Details Date Type Department Care Team Description 04/10/2018 Refill Family Practice [facility] [address] [place] [address] Teddy De Oliveira MD [address] [facility] [place] [address] [phone] Fibromyalgia*;Neuropathy Allergies Active Allergy Reactions Severity Noted Date [...] of sleep. 1 Each 0 04/07/2016 Active cyclobenzaprine (FLEXERIL) 10 MG Tablet TAKE ONE TABLET BY MOUTH AT BEDTIME NEEDED FOR MUSCLE SPASM 30 Tab 2 10/21/2016 Active docusate sodium (STOOL SOFTENER) 100 MG Capsule Take 100 mg by mouth 2 times a day as needed for Constipation. Active insulin glargine (INSULIN GLARGINE) 100 UNIT/ML SOPNIndications:Typ e 2 diabetes mellitus with hemoglobin A1c goal of 7.0%-8.0% ([facility]) Inject 66 Units under the skin 2 times a day. Titrate by 2 units until SBGM <150 2 Pre-filled Pen Syringe Dosing Unit 11 05/24/2017 Active clonazePAM (KLONOPIN) 0.5 MG TabletIndications:A nxiety state Take 1 Tab by mouth 2 times a day. 180 Tab 1 07/14/2017 Active metoprolol tartrate (LOPRESSOR) 25 MG TabletIndications:H TN, goal below 130/80 Take 1 Tab by mouth 2 times a day. 180 Tab 1 07/14/2017 Active levothyroxine (LEVOXYL) 25 MCG TabletIndications:P ostsurgical hypothyroidism TAKE ONE TABLET BY MOUTH IN THE MORNING AT LEAST 30 MINUTES PRIOR TO BREAKFAST OR OTHER MEDS 90 Tab 0 12/29/2017 Active sertraline (ZOLOFT) 100 MG TabletIndications:D epression with anxiety 1 1/2 tabs daily 135 Tab 1 12/29/2017 Active BD PEN NEEDLE SHORT U/F 31G X 8 MM use twice daily 100 Box Dosing Unit 11 01/23/2018 Active hydrochlorothiazide (HYDRODIURIL) 12.5 MG CapsuleIndications: HTN, [...] daily as directed 100 Strip 02/08/2018 Active empagliflozin (JARDIANCE) 25 MG TABS Take 1 Tab by mouth daily. 30 Tab 5 03/07/2018 Active metFORMIN ER (GLUCOPHAGE XR) 500 MG [id number]:Unc ontrolled type 2 diabetes mellitus with stage 3 chronic kidney disease, with long-term current use of insulin ([facility]) Take 4 Tabs by mouth daily. 360 Tab 1 03/07/2018 Active rOPINIRole (REQUIP) 1 MG TabletIndications:R estless legs syndrome TAKE ONE TABLET BY MOUTH AT BEDTIME 30 Tab 4 03/09/2018 Active ciprofloxacin (CIPRO) 250 MG TabletIndications:A cute cystitis without hematuria Take 1 Tab by mouth every 12 hours. 6 Tab 0 03/24/2018 Active gabapentin (NEURONTIN) 300 MG CapsuleIndications: Neuropathy,Fibromya lgia take 1 capsule by mouth twice daily for 2 weeks then switch to 1 three times daily 90 Cap 3 04/11/2018 Active lisinopril (PRINIVIL) 10 MG TabletIndications:H TN, goal below 140/80 TAKE ONE TABLET BY MOUTH ONE TIME DAILY 90 Tab 1 10/21/2017 8 Discontinued gabapentin (NEURONTIN) 300 MG CapsuleIndications: Neuropathy,Fibromya lgia one pill twice a day x 2 wks Then one pill three times a day 90 Cap 2 12/29/2017 8 Discontinued as of this encounter Active Problems Problem Noted Date Controlled substance agreement signed Body mass index (BMI) of 50.0 to 59.9 in adult ([facility]) 06/27/2017 Overview: Per Obesity protocol #1 - Per Obesity Taxonomy ICD-10 update of inactive term Uncontrolled type 2 diabetes mellitus with stage 3 chronic kidney disease, with long-term current use of insulin ([facility]) 05/24/2017 Gastroesophageal reflux disease with eso phagitis 03/04/2017 Restless legs syndrome 03/25/2016 Fibromyalgia 02/02/2016 Abnormality of gait 02/02/2016 Type 2 diabetes mellitus with hemoglobin A1c goal of 7.0%-8.0% ([facility]) 10/14/2014 Overview: ICD-10 update of inactive term [place] filter in place 08/19/2014 History of pulmonary embolus (PE) 2013 Statin intolerance 07/16/2014 HTN, goal below 130/80 02/22/2014 Venous insufficiency 02/07/2013 ELISSA (obstructive sleep apnea) 09/16/2011 Overview: CPAP 11 cwp Mild, AHI 11.3 but with significant nocturnal hypoxemia Dicks Hypoxemia 07/22/2011 Overview: Nocturnal ox 2 LPM 10/25/11 -- mean 84%, low 76%, time <89% [...] mass index (BMI) of 40.0-44.9 in adult ([facility] ) 08/17/2010 05/24/2017 Obesity, morbid (more than 1 00 lbs over ideal weight or BMI > 40) ([facility]) 12/23/2009 06/30/2017 Overview: Per Obesity Taxonomy ICD-10 update of inactive term HTN, GOAL BELOW 130/80 10/22/2009 2 Overview: Per HTN Taxonomy. Pneumonia in aspergillosis ([facility]) 09/14/2009 02/15/2017 Venous thrombosis 09/14/2009 10/15/2010 Respiratory failure, acute ([facility]) 09/14/2009 02/15/2017 Spontaneous pneumothorax 09/14/2009 017 Dysuria 08/23/2009 02/15/2017 Type 2 diabetes mellitus wit h hemoglobin A1c goal of less than 7.0% ([facility]) 07/10/2009 10/14/2014 Overview: Modified per Diabetes protocol #14. ICD-10 update of inactive term Dyslipidemia, goal LDL below 160 08/16/2007 09/04/2009 Overview: Per Lipid Taxonomy. HTN, goal below 140/90 04/09/2003 0 Overview: Per HTN Taxonomy. DM type 2, not at goal ([facility]) 05/29/2002 Overview: Modified per Diabetes [...] Telephone Encounter - Sanjiv Tolliver DO - 04/11/2018 12:03 PM EDT Signed Prescriptions: Disp Refills gabapentin (NEURONTIN) 300 MG Capsule 90 Cap 3 Sig: take 1 capsule by mouth twice daily for 2 weeks then switch to 1 three times daily Authorizing Provider: SANJIV TOLLIVER * Telephone Encounter - Izabela Crump LPN - 04/11/2018 10:38 AM EDT Pending Prescriptions: Disp Refills gabapentin (NEURONTIN) 300 MG Capsule [Ph*90 Cap 3 Sig: take 1 capsule by mouth twice daily for 2 weeks then switch to 1 three times daily * Telephone Encounter - Neelam Zarco LPN - 04/11/2018 10:35 AM EDT Pending Prescriptions: Disp Refills gabapentin (NEURONTIN) 300 MG Capsule [Ph*90 Cap 3 Sig: take 1 capsule by mouth twice daily for 2 weeks then switch to 1 three times daily * Telephone Encounter - Neelam Zarco LPN - 04/11/2018 10:35 AM EDT Formatting of this note may be different from the original. Pending Prescriptions: Disp Refills gabapentin (NEURONTIN) 300 MG Capsule [Ph*90 Cap 3 Sig: take 1 capsule by mouth twice daily for 2 weeks then switch to 1 three times daily Last Office Visit: 03/24/2018 Next Office Visit: 05/01/2018 Scheduled Provider(s): Kevin Whiteside DO Last date the medication was [...] current use of insulin ([facility]) E11.22, E11.65, N18.3, Z79.4 Body mass index (BMI) of 50.0 to 59.9 in adult ([facility]) Z68.43 Controlled substance agreement signed Z79.899 Labs: CREATININE(mg/dL) Nessa Dt/Tm Resulted Value Status 12/29/17 12:43P 12/29/17 1.1* FINAL POTASSIUM(mmol/L) Nessa Dt/Tm Resulted Value Status 12/29/17 12:43P 12/29/17 4.9 FINAL TSH(uIU/mL) Nessa Dt/Tm Resulted Value Status 03/03/17 12:38P 03/03/17 0.60 FINAL LDL (DIRECT MEASURE)(mg/dL) Nessa Dt/Tm Resulted Value Status 07/14/17 12:35P 07/14/17 109 FINAL 10/28/16 1:24P 10/28/16 119 FINAL ALT(U/L) Nessa Dt/Tm Resulted Value Status 12/29/17 12:43P 12/29/17 40* FINAL Hemoglobin AIC Results: HEMOGLOBIN, A1C(%) Nessa Dt/Tm Resulted Value Status 12/29/17 12:43P 12/29/17 11.6* FINAL 07/14/17 12:35P 07/14/17 9.3* FINAL HEMOGLOBIN, [id number] LAB(%) Nessa Dt/Tm Resulted Value Status 05/05/17 05/06/17 9.7* FINAL in this encounter Plan of Treatment Upcoming Encounters Date Type Specialty Care Team Description 04/25/2018 Pharmacy Pharmacy Sp, [facility] [address] [place] [address] [phone] 05/01/2018 Office Visit Family Medicine Kevin Whiteside DO [address] [place] [address] [phone] 05/02/2018 Office Visit Sleep Disorders Celsa Tafoya CRNP [address] [place] [address] [phone] Health Maintenance Due Date Last Done Comments [...] 2018 07/14/2017, 06/24/2016, 07/24/2015, Additional history exists CKD GFR USE SMARTSET 01435 06/30/201812/29, 12/26/2017, 07/14/2017, Additional history exists DIABETES-HGBA1C EVERY 6 MONTHS 06/30/2018 0 12/29/2017, 07/14/2017, 05/05/2017, Additional history exists DIABETES-LDL EVERY 12 MONTHS 07/14/2018, 10/28/2016, 06/24/2016, Additional history exists CKD HGB USE SMARTSET 58269 12/26/201812/26, 05/21/2017, 05/05/2017, Additional history exists DIABETES-URINE MICROALBUMIN EVERY 12 MONTHS 12/26/2018 12/26/2017, 05/21/2017, 05/05/2017, Additional history exists CKD PHOS USE SMARTSET 76487 12/29/2018 04/0 01/2018, 08/26/2009, 08/25/2009, Additional history exists DIABETES-FOOT EXAM 12/29/2018 12/29/2017, 0 10/21/2016, 12/11/2015, Additional history exists PNEUMOCOCCAL 19-64 MEDIUM RISK Completed 08/22/2009 , 06/15/2006 as of this encounter Implants Not on fileas of this encounter Visit Diagnoses Diagnosis Fibromyalgia - Primary Mylagia and myositis, unspecified Neuropathy Mononeuritis of unspecified site in this encounter
--- OUTSIDE RECORDS SUMMARY | 2023-06-01 06:03 | External Medical Summary | Summary of Care ---
Author Name Unknown Organization [place] [address] Phone Care Team Providers Care Hedge Fund Trader Name Role Phone Kevin Whiteside Primary Care Provider Encounter Details Date Type Department Care Team Description 04/23/2018 Scan Encounter Sleep Disorders, [facility] [address] [facility] [place] [address] [facility]els[facility] [address] [facility] [address] <No scans attached> Allergies Active Allergy [...] goal of 7.0%-8.0% ([facility]) Inject 66 Units under the skin [...] Active metFORMIN ER (GLUCOPHAGE XR) 500 MG [id number]:Uncon trolled type 2 diabetes mellitus with stage [...] TWICE DAILY 60 Tab 11 04/25/2018 Active as of this encounter Active Problems Problem Noted Date Controlled substance agreement signed Body mass index (BMI) of 50.0 to 59.9 in adult ([facility]) 06/27/2017 Overview: Per Obesity protocol #1 - Per Obesity Taxonomy ICD-10 update of inactive term Uncontrolled type 2 diabetes mellitus with stage 3 chronic kidney disease, with long-term current use of insulin ([facility]) 05/24/2017 Gastroesophageal reflux disease with eso phagitis 03/04/2017 Restless legs syndrome 03/25/2016 Fibromyalgia 02/02/2016 Abnormality of gait 02/02/2016 Type 2 diabetes mellitus with hemoglobin A1c goal of 7.0%-8.0% ([facility]) 10/14/2014 Overview: ICD-10 update of inactive [...] mass index (BMI) of 40.0-44.9 in adult ([facility] ) 08/17/2010 05/24/2017 Obesity, morbid (more than 1 00 lbs over ideal weight or BMI > 40) ([facility]) 12/23/2009 06/30/2017 Overview: Per Obesity Taxonomy ICD-10 update of inactive term HTN, GOAL BELOW 130/80 10/22/2009 2 Overview: Per HTN Taxonomy. Pneumonia in aspergillosis ([facility]) 09/14/2009 02/15/2017 Venous thrombosis 09/14/2009 10/15/2010 Respiratory failure, acute ([facility]) 09/14/2009 02/15/2017 Spontaneous pneumothorax 09/14/2009 017 Dysuria 08/23/2009 02/15/2017 Type 2 diabetes mellitus wit h hemoglobin A1c goal of less than 7.0% ([facility]) 07/10/2009 10/14/2014 Overview: Modified per Diabetes protocol #14. ICD-10 update of inactive term Dyslipidemia, goal LDL below 160 08/16/2007 09/04/2009 Overview: Per Lipid Taxonomy. HTN, goal below 140/90 04/09/2003 0 Overview: Per HTN Taxonomy. DM type 2, not at goal ([facility]) 05/29/2002 Overview: Modified per Diabetes protocol #14. TENOSYNOVITIS FOOT-ANKLE 12/26/2001 017 Goiter 01/13/2000 06/28/2011 BACKACHE NOS 08/26/1999 05/24/2017 OBESITY, UNSPECIFIED 08/26/1999 12/23/2009 Overview: Per Obesity Taxonomy Perforation of intestine ([facility]) 0 02/15/2017 Overview: COLON Diverticulitis as [...] Care Team Description 05/16/2018 [facility] [address] [facility] [address] [phone] 08/01/2018 Office Visit Family Medicine Kevin Whiteside, [address] [place] [address] [phone] 05/04/2019 Office Visit Sleep Disorders Celsa Tafoya CRNP [address] [place] [address] [phone] Health Maintenance Due Date Last Done Comments [...] Additional history exists CKD GFR USE SMARTSET 03028 11/01/201805/01, 12/29/2017, 12/26/2017, Additional history exists DIABETES-HGBA1C EVERY 6 MONTHS 11/01/2018 0 05/01/2018, 12/29/2017, 07/14/2017, Additional history exists CKD HGB USE SMARTSET 08099 12/26/201812/26, 05/21/2017, 05/05/2017, Additional history exists CKD PHOS USE SMARTSET 59397 12/29/2018 04/0 01/2018, 08/26/2009, 08/25/2009, Additional history exists DIABETES-FOOT EXAM 12/29/2018 12/29/2017, 0 10/21/2016, 12/11/2015, Additional history exists PNEUMOCOCCAL 19-64 MEDIUM RISK Completed 08/22/2009 , 06/15/2006 as of this encounter Implants Not on fileas of this encounter
--- OUTSIDE RECORDS SUMMARY | 2023-06-01 06:03 | External Medical Summary | Summary of Care ---
Author Name Unknown Organization [place] [address] Phone Care Team Providers Care Appliquer Zigzag Name Role Phone Kevin Whiteside Primary Care Provider Reason for Visit * Reason Comments Dosage Adjustment In Person (Anticoag Cl inic) DIABETES FOLLOW-UP Encounter Details Date Type Department Care Team Description 05/16/2018 Pharmacy Pharmacy, [facility] [address] [facility] [place] [address] Sp, [facility] [address] [facility] [place] [address] [phone] Type 2 diabetes mellitus with hemoglobin A1c goal of 7.0%-8.0% ([facility])* Allergies Active Allergy Reactions Severity Noted Date [...] 1 07/14/2017 Active sertraline (ZOLOFT) 100 MG TabletIndications:D epression with anxiety 1 1/2 tabs daily 135 Tab 1 12/29/2017 Active hydrochlorothiazide (HYDRODIURIL) 12.5 MG CapsuleIndications: HTN, [...] Active metFORMIN ER (GLUCOPHAGE XR) 500 MG IN40Huexnywbdxb:Unc ontrolled type 2 diabetes mellitus with stage 3 chronic kidney disease, with long-term current use of insulin ([facility]) Take 4 Tabs by mouth daily. 360 [...] 200 Box Dosing Unit 11 05/16/2018 Active BD PEN NEEDLE SHORT U/F 31G X 8 MM use twice daily 100 Box Dosing Unit 11 01/23/2018 8 Discontinued empagliflozin (JARDIANCE) 25 MG TABS Take 1 Tab by mouth daily. 30 Tab 5 03/07/2018 8 Discontinued as of this encounter Active [...] 10/14/2014 Overview: ICD-10 update of inactive term [place] filter in place 08/19/2014 History of pulmonary [...] this encounter Progress Notes * Frances Ellis, [facility] - 05/16/2018 10:02 AM EDT Formatting of this note may be different from the original. Medication Therapy Disease Management Diabetes Interval History: Stephanie Camp is an 63 year old year old female returning to the [facility] for a diabetes follow-up appointment. Blood glucose control since last visit: improved, but still poorly controlled Medication intolerance: yes; multiple UTI/yeast infections with Jardiance Medication compliance: yes Hospitalization or ED Utilization since last visit: no Hypoglycemia requiring assistance since last visit: no Symptoms of hyperglycemia or hypoglycemia present today: no Diet: Breakfast: peach + yogurt or cereal or eggs and toast, coffee with half and half AM snack: fruit Lunch: sometimes skips - or just sandwich or fruit or salad Dinner: baked chicken, fish or hamburger with starch (instant potatoes) and veggie (peas, corn or green beans) or salad. HS Snack: milk + rice cakes with nortriptyline Beverages: milk, water, coffee, occasional soda, unsweetened iced tea Exercise: not much - "neuropathy in feet" Current Diabetes Medications: Lantus/basaglar - 66 units twice daily Victoza 1.8 mg daily Increase Metformin 500 mg ER to 4 tablets daily (eGFR 52.7) Start Jardiance 25 mg daily in AM (eGFR 52.7) Self-Monitoring Blood Glucose Review: Patient currently tests blood glucose 3-4 time(s) daily Pre am Pre Lunch Pre pm HS 218 269 202 370 256 232 279 276 181 270 221 266 214 244 233 233 182 265 294 278 210 274 273 269 177 215 253 260 130 201 204 300 152 243 219 265 215 276 310 360 173 255 207 303 183 215 300 296 165 272 206 291 200 271 175 273 188 173 213 167 157 210 255 316 172 293 218 327 272 249 236 300 184 325 227 293 317 300 276 404 285 314 251 267 239 223 254 223 226 229 211 300 221 264 191 253 224 255 215 255 214 201 Average 206 255 241 287 Hi 317 325 310 404 Lo [address] 204.3929 255.85673 240.368 286.952 Range 187 152 135 237 Hypoglycemia: 1. Do you know what the [...] pulmonary embolus (PE) Z86.711 Statin intolerance Z78.[address] [address] Z95.828 Type 2 diabetes [...] SYSTEM) Z68.43 Controlled substance agreement signed Z79.899 Review of patient's allergies indicates: Allergen Reactions Heparin Heparin Induced Thrombocytopenia Morphine And Related Hallucinations Tetanus Toxoid Other (Please comment) Passed out Current Outpatient Prescriptions Medication Sig Dispense Refill cyclobenzaprine (FLEXERIL) 10 [...] BY MOUTH AT BEDTIME 30 Tab 4 empagliflozin (JARDIANCE) 25 MG TABS Take 1 Tab by mouth daily. 30 Tab 5 metFORMIN ER (GLUCOPHAGE XR) 500 MG TB24 Take 4 Tabs by mouth daily. 360 Tab 1 Glucose Blood (SparkflyUCH ULTRA BLUE) STRP Check sugars twice daily as directed 100 Strip 5 liraglutide (VICTOZA) 18 MG/3ML SOPN Inject 1.8 mg under the skin daily. As directed 3 Pre-filled Pen Syringe Dosing Unit 11 Dealer.comTOUCH DELICA LANCETS 33G MISC Check blood sugars [...] breakfast or other meds) 90 Tab 1 BD PEN NEEDLE SHORT U/F 31G X 8 MM use twice daily 100 Box Dosing Unit 11 sertraline (ZOLOFT) 100 MG Tablet 1 1/2 [...] cholesterol lab Estimated body mass index is 58.19 kg/(m^2) as calculated from the following: Height as of 03/24/18: 1.626 m (5' 4"). Weight as of 05/02/18: 153.8 kg (339 lb). BP Readings from Last 3 Encounters: 05/02/18 124/72 05/01/18 128/82 03/24/18 130/78 No POC orders found HEMOGLOBIN, A1C(%) Nessa Dt/Tm Resulted Value Status 05/01/18 9:12A 05/01/18 10.0* FINAL 12/29/17 12:43P 12/29/17 11.6* FINAL 07/14/17 12:35P 07/14/17 9.3* FINAL MICROALBUMIN RATIO(mg/g creat) Nessa Dt/Tm Resulted Value Status 05/01/18 9:13A 05/01/18 <18 FINAL 03/03/17 12:37P 03/03/17 <15 FINAL 06/24/16 3:28P 06/24/16 <12 FINAL BASIC METAB PANEL, BMP Nessa Dt/Tm Resulted Value Status BUN (mg/dL) 05/01/18 9:12A 05/01/18 37* F CREATININE (mg/dL) 05/01/18 9:12A 05/01/18 1.7* F E GLOM FILT RATE ( ) 05/01/18 9:12A 05/01/18 32.2* F SODIUM (mmol/L) 05/01/18 9:12A 05/01/18 136 F POTASSIUM (mmol/L) 05/01/18 9:12A 05/01/18 4.9 F CHLORIDE (mmol/L) 05/01/18 9:12A 05/01/18 98 F CO2 (mmol/L) 05/01/18 9:12A 05/01/18 22 F ANION GAP (mmol/L) 05/01/18 9:12A 05/01/18 16* F GLUCOSE (mg/dL) 05/01/18 9:12A 05/01/18 311* F CALCIUM (mg/dL) 05/01/18 9:12A 05/01/18 9.4 F ALT(U/L) Nessa Dt/Tm Resulted Value Status 12/29/17 12:43P 12/29/17 40* FINAL LDL (DIRECT MEASURE)(mg/dL) Nessa Dt/Tm Resulted Value Status 07/14/17 12:35P 07/14/17 109 FINAL Assessment & Plan: Glycemic control is unstable and not at goal. Patient agreeable to adjust medications as noted below. Will discontinue Jardiance as patient has had 3 yeast infections in the last 6 weeks since startingthe medication and BGs still not well controlled. Will start patient on Novolog insulin - fixed dose for now and plan to add correction factor later. Patient is agreeable to SMBG 4 time(s) daily. Patient aware to contact clinic if any hypoglycemia before next visit. Reviewed rule of 15s. Diabetes Medications: Lantus/basaglar - 66 units twice daily Victoza 1.8 mg daily Metformin 500 mg ER to 4 tablets daily (eGFR 52.7) Discontinue Jardiance 25 mg daily in AM (eGFR 52.7) START Novolog 5 units with breakfast and lunch, 10 units at dinner Diabetes Health Maintenance: due for eye exam - pt informed. Repeat BMP and vit b12 today. Return to clinic: 6 week(s) Frances Huerta [facility] Clinical Pharmacist Medication Therapy Disease Management 05/16/2018, 10:02 AM in this encounter Plan of Treatment Upcoming Encounters Date Type Specialty Care Team Description 06/27/2018 Pharmacy Pharmacy Sp, [facility] [address] [facility], [place] [address] [phone] 08/01/2018 Office Visit Family Medicine Kevin Whiteside DO [address] [place] [address] [phone] 05/04/2019 Office Visit Sleep Disorders Celsa Tafoya CRNP [address] [place] [address] [phone] Health Maintenance Due Date Last Done Comments [...] MONTHS 07/14/2018, 10/28/2016, 06/24/2016, Additional history exists DIABETES-HGBA1C EVERY 6 MONTHS 11/01/2018 0 05/01/2018, 12/29/2017, 07/14/2017, Additional history exists CKD GFR USE SMARTSET 65471 11/16/201805/16, 05/01/2018, 12/29/2017, Additional history exists CKD HGB USE SMARTSET 82966 12/26/201812/26, 05/21/2017, 05/05/2017, Additional history exists CKD PHOS USE SMARTSET 88967 12/29/2018 04/0 01/2018, 08/26/2009, 08/25/2009, Additional history exists DIABETES-FOOT EXAM 12/29/2018 12/29/2017, 0 10/21/2016, 12/11/2015, Additional history exists Yearly B-12 05/16/2019 05/16/2018 PNEUMOCOCCAL 19-64 MEDIUM RISK Completed 08/22/2009 , 06/15/2006 as of this encounter Implants Not on fileas of this encounter Results * VITAMIN B12 (05/16/2018 10:52 AM) Component Value Ref Range VITAMIN B12 303 232 - 1245 pg/mL Specimen Performing Laborator y [facility] [address] [facility] [address] * BASIC METAB PANEL, BMP (05/16/2018 10:51 AM) Component Value Ref Range BUN 32(H) 6 - 20 mg/dL CREATININE 1.4(H) Comment: GFR should be used to assess renal function.Plasma/Serum creatinine may not be able to properly reflect renal function in some cases. 0.5 - 1.0 mg/dL E GLOM FILT RATE 39.2(L)Comment:If pa robinsonnt is , multiply estimated GFR by 1.159. >60 SODIUM 138 135 - 146 mmol/L POTASSIUM 5.0 3.5 - 5.1 mmol/L CHLORIDE 96(L) 98 - 107 mmol/L CO2 24 22 - 32 mmol/L ANION GAP 18(H) 7 - 15 mmol/L GLUCOSE 210(H) 70 - 120 mg/dL CALCIUM 10.1 8.4 - 10.2 mg/dL Specimen Performing Laborator y [facility] [address] [place] [address] in this encounter Visit Diagnoses Diagnosis Type 2 diabetes mellitus wit h hemoglobin A1c goal of 7.0%-8.0% ([facility]) - Primary in this encounter
--- OUTSIDE RECORDS SUMMARY | 2023-06-01 06:03 | External Medical Summary ---
Author Name Unknown Address [facility] [place] [address] Phone Organization K01:[place] [address] [place] [id number] Laboratory Report Ordering Provider Test Date Status LONG CAMARENA 05/01/2018 09:12:00 Final Observation Date Value Abnormality Reference Status HbA1C 05/01/2018 14:15 10.0 Above high normal 4.0-5 .6 Final Performing Location [place] [address] [address] [facility] [address]
--- OUTSIDE RECORDS SUMMARY | 2023-06-01 06:03 | External Medical Summary | Summary of Care ---
Author Name Unknown Organization [place] [address] Phone Care Team Providers Care Naval Marine Engineer Name Role Phone Sanjiv Tolliver DO Primary Care Provider [phone] Reason for Visit * Reason Comments eRx-Medication Refill Encounter Details Date Type Department Care Team Description 04/12/2018 Refill Family Practice [facility] [address] [place] [address] Teddy De Oliveira MD [address] [facility] [place] [address] [phone] POSTSURGICAL HYPOTHYROID Allergies Active Allergy Reactions Severity [...] MG/3ML SOPNIndications:DM type 2, goal: symptom mgmt ([facility]) Inject 1.8 mg under the skin [...] Active metFORMIN ER (GLUCOPHAGE XR) 500 MG MI05Pbrmzpmpgbh:Unc ontrolled type 2 diabetes mellitus with stage [...] 12 hours. 6 Tab 0 03/24/2018 Active lisinopril (PRINIVIL) 10 MG TabletIndications:H TN, [...] OTHER MEDS 90 Tab 1 04/12/2018 Active levothyroxine (LEVOXYL) 25 MCG TabletIndications:P ostsurgical hypothyroidism TAKE ONE TABLET BY MOUTH IN THE MORNING AT LEAST 30 MINUTES PRIOR TO BREAKFAST OR OTHER MEDS 90 Tab 0 12/29/2017 8 Discontinued as of this encounter [...] 10/14/2014 Overview: ICD-10 update of inactive term [place] filter in place 08/19/2014 History of pulmonary [...] not at goal ([facility]) 05/29/2002 Overview: Modified per Diabetes protocol [...] Telephone Encounter - Sanjiv Tolliver DO - 04/12/2018 10:33 AM EDT Signed Prescriptions: Disp Refills levothyroxine (LEVOXYL) 25 MCG Tablet 90 Tab 1 Sig: TAKE ONE TABLET BY MOUTH IN THE MORNING AT LEAST 30 MINUTES PRIOR TO BREAKFAST OR OTHER MEDS Authorizing Provider: SANJIV TOLLIVER * Telephone Encounter - Jennifer Cesar LPN - 04/12/2018 8:46 AM EDT Pending Prescriptions: Disp Refills levothyroxine (LEVOXYL) 25 MCG Tablet [Ph*90 Tab 1 Sig: TAKE ONE TABLET BY MOUTH IN THE MORNING AT LEAST 30 MINUTES PRIOR TO BREAKFAST OR OTHER MEDS * Telephone Encounter - Frances Ceballos LPN - 04/12/2018 8:38 AM EDT Pending Prescriptions: Disp Refills levothyroxine (LEVOXYL) 25 MCG Tablet [Ph*90 Tab 0 Sig: TAKE ONE TABLET BY MOUTH IN THE MORNING AT LEAST 30 MINUTES PRIOR TO BREAKFAST OR OTHER MEDS * Telephone Encounter - Frances Ceballos, CHUYITA - 04/12/2018 8:38 AM EDT Formatting of this note may be different from the original. Pending Prescriptions: Disp Refills levothyroxine (LEVOXYL) 25 MCG Tablet [Ph*90 Tab 0 Sig: TAKE ONE TABLET BY MOUTH IN THE MORNING AT LEAST 30 MINUTES PRIOR TO BREAKFAST OR OTHER MEDS Last Office Visit: 03/24/2018 Next Office Visit: [...] insulin ([facility]) E11.22, E11.65, N18.3, Z79.4 Body mass [...] Nessa Dt/Tm Resulted Value Status 12/29/17 12:43P 4/5/18 40* FINAL Hemoglobin AIC Results: HEMOGLOBIN, A1C(%) Nessa Dt/Tm Resulted Value Status 12/29/17 12:43P 12/29/17 11.6* FINAL 07/14/17 12:35P 07/14/17 9.3* FINAL HEMOGLOBIN, A5C-VYTSYEF LAB(%) Nessa Dt/Tm Resulted Value Status 05/05/17 05/06/17 9.7* FINAL in this encounter Plan of Treatment Upcoming Encounters Date Type Specialty Care Team Description 04/25/2018 Pharmacy Pharmacy Sp, [facility] [address] [facility] [place] [address] [phone] 05/01/2018 Office Visit Family Medicine Kevin Whiteside DO [address] [place] [address] [phone] 05/02/2018 Office Visit Sleep Disorders Celsa Tafoya CRNP [address] [place] [address] [phone] Health Maintenance Due Date Last Done Comments Yearly B-12 1955 DIABETES-EYE EXAM 02/24/2011 02/24/2010 (Do ne elsewhere), 12/18/2009, 02/18/2008 (Done elsewhere) BREAST CANCER SCREENING DISC USSION YEARLY AGES 40-75 05/09/2016 05/09/2015, 07/12/2014, 07/04/2014, Additional history exists PAP SMEAR-EVERY 3 YRS,AGES 21-65 05/11/2016 05/11/2013, 03/01/2008, 10/19/2006, Additional history exists *DEPRESSION SCREENING, ANNUA Zuleyma FOR PTS 18 AND OVER 03/07/2018 *TSH FOR THYROID MEDICATION MONITORING YEARLY 03/07/2018 Influenza Vaccine (FLU shot) (#1) 2018 07/14/2017, 06/24/2016, 07/24/2015, Additional history exists CKD GFR USE SMARTSET 90161 06/30/201812/29, 12/26/2017, 07/14/2017, Additional history exists DIABETES-HGBA1C EVERY 6 MONTHS 06/30/2018 0 12/29/2017, 07/14/2017, 05/05/2017, Additional history exists DIABETES-LDL EVERY 12 MONTHS 07/14/2018, 10/28/2016, 06/24/2016, Additional history exists CKD HGB USE SMARTSET 30097 12/26/201812/26, 05/21/2017, 05/05/2017, Additional history exists DIABETES-URINE MICROALBUMIN EVERY 12 MONTHS 12/26/2018 12/26/2017, 05/21/2017, 05/05/2017, Additional history exists CKD PHOS USE SMARTSET 86405 12/29/2018 04/0 01/2018, 08/26/2009, 08/25/2009, Additional history exists DIABETES-FOOT EXAM 12/29/2018 12/29/2017, 0 10/21/2016, 12/11/2015, Additional history exists PNEUMOCOCCAL 19-64 MEDIUM RISK Completed 08/22/2009 , 06/15/2006 as of this encounter Implants Not on fileas of this encounter Visit Diagnoses Diagnosis POSTSURGICAL HYPOTHYROID Postsurgical hypothyroidism in this encounter
--- OUTSIDE RECORDS SUMMARY | 2023-06-01 06:03 | External Medical Summary | Summary of Care ---
Author Name Unknown Organization [place] [address] Phone Care Team Providers Care Personal Financial Counselor Name Role Phone Sanjiv Tolliver DO Primary Care Provider [phone] Reason for Visit * Reason Comments eRx-Medication Refill Encounter Details Date Type Department Care Team Description 04/09/2018 Refill Family Practice [facility] [address] [facility] [place] [address] Ricardo Mcghee MD [address] [facility] [place] [address] [phone] HTN, goal below 140/80 Allergies Active Allergy [...] 7.0%-8.0% ([facility]) Inject 66 Units under the skin [...] Active metFORMIN ER (GLUCOPHAGE XR) 500 MG NG90Utskelhqytl:Unc ontrolled type 2 diabetes mellitus with stage 3 chronic kidney disease, with long-term current use of insulin ([facility]) Take 4 Tabs by mouth daily. [...] MOUTH DAILY 90 Tab 3 04/11/2018 Active lisinopril (PRINIVIL) 10 MG [...] in adult ([facility]) 06/27/2017 Overview: Per Obesity protocol #1 - Per Obesity Taxonomy ICD-10 update of inactive term Uncontrolled type 2 diabetes mellitus with stage 3 chronic kidney disease, with long-term current use of insulin ([facility]) 05/24/2017 Gastroesophageal reflux disease with eso phagitis 03/04/2017 Restless legs syndrome 03/25/2016 Fibromyalgia 02/02/2016 Abnormality of gait 02/02/2016 Type 2 diabetes mellitus with hemoglobin A1c goal of 7.0%-8.0% ([facility]) 10/14/2014 Overview: ICD-10 update of inactive term [place] filter in place 08/19/2014 History of pulmonary [...] mass index (BMI) of 40.0-44.9 in adult ([facility] ) 08/17/2010 05/24/2017 Obesity, morbid (more than 1 00 lbs over ideal weight or BMI > 40) ([facility]) 12/23/2009 06/30/2017 Overview: Per Obesity Taxonomy ICD-10 update of inactive term HTN, GOAL BELOW 130/80 10/22/2009 2 Overview: Per HTN Taxonomy. Pneumonia in aspergillosis ([facility]) 09/14/2009 02/15/2017 Venous thrombosis 09/14/2009 10/15/2010 Respiratory failure, acute ([facility]) 09/14/2009 02/15/2017 Spontaneous pneumothorax 09/14/2009 017 Dysuria 08/23/2009 02/15/2017 Type 2 diabetes mellitus wit h hemoglobin A1c goal of less than 7.0% ([facility]) 07/10/2009 10/14/2014 Overview: Modified per Diabetes protocol #14. ICD-10 update of inactive term Dyslipidemia, goal LDL below 160 08/16/2007 09/04/2009 Overview: Per Lipid Taxonomy. HTN, goal below 140/90 04/09/2003 0 Overview: Per HTN Taxonomy. DM type 2, not at goal ([facility]) 05/29/2002 Overview: Modified per Diabetes protocol [...] 12:03 PM EDT Signed Prescriptions: Disp Refills lisinopril (PRINIVIL) 10 MG Tablet 90 Tab 3 Sig: TAKE ONE TABLET BY MOUTH DAILY Authorizing Provider: SANJIV TOLLIVER * Telephone Encounter - Mattie Hilario LPN - 04/11/2018 8:48 AM EDT Pending Prescriptions: Disp Refills lisinopril (PRINIVIL) 10 MG Tablet [Pharm*90 Tab 3 Sig: TAKE ONE TABLET BY MOUTH DAILY * Telephone Encounter - Sean Daniels, ELISSA - 04/11/2018 7:34 AM EDT Pending Prescriptions: Disp Refills lisinopril (PRINIVIL) 10 MG Tablet [Pharma*90 Tab 3 Sig: TAKE ONE TABLET BY MOUTH DAILY * Telephone Encounter - Flaca Real LPN - 04/10/2018 4:23 PM EDT Pending Prescriptions: Disp Refills lisinopril (PRINIVIL) 10 MG Tablet [Pharm*90 Tab 3 Sig: TAKE ONE TABLET BY MOUTH DAILY * Telephone Encounter - Flaca Real LPN - 04/10/2018 4:22 PM EDT Pending Prescriptions: Disp Refills lisinopril (PRINIVIL) 10 MG Tablet [Pharm*90 Tab 3 Sig: TAKE ONE TABLET BY MOUTH DAILY Last Office Visit: 03/24/2018 Next Office Visit: 05/01/2018 Scheduled Provider(s): Kevin Whiteside DO lr --18 in this encounter Plan of Treatment Upcoming Encounters Date Type Specialty Care Team Description 04/25/2018 Pharmacy Pharm[facility] Sp, [facility] [address] [facility] [address] [phone] 05/01/2018 Office Visit Family Medicine Kevin Whiteside DO [address] [place] [address] 05/02/2018 Office Visit Sleep Disorders [facility] [place] [address] [phone] Health Maintenance Due Date Last Done Comments [...] Additional history exists CKD GFR USE SMARTSET 90680 06/30/201812/29, 12/26/2017, 07/14/2017, Additional history exists DIABETES-HGBA1C EVERY 6 MONTHS 06/30/2018 0 12/29/2017, 07/14/2017, 05/05/2017, Additional history exists DIABETES-LDL EVERY 12 MONTHS 07/14/2018, 10/28/2016, 06/24/2016, Additional history exists CKD HGB USE SMARTSET 11270 12/26/201812/26, 05/21/2017, 05/05/2017, Additional history exists DIABETES-URINE MICROALBUMIN EVERY 12 MONTHS 12/26/2018 12/26/2017, 05/21/2017, 05/05/2017, Additional history exists CKD PHOS USE SMARTSET 52240 12/29/2018 04/01/2018, 08/26/2009, 08/25/2009, Additional history exists DIABETES-FOOT EXAM 12/29/2018 12/29/2017, 0 10/21/2016, 12/11/2015, Additional history exists PNEUMOCOCCAL 19-64 MEDIUM RISK Completed 08/22/2009 , 06/15/2006 as of this encounter Implants Not on fileas of this encounter Visit Diagnoses Diagnosis HTN, goal below 140/80 Unspecified essential hypertension in this encounter
--- OUTSIDE RECORDS SUMMARY | 2023-06-01 06:03 | External Medical Summary ---
Author Name Unknown Address [address] [place], [place] [address] Phone Organization K09:[facility] [address] [place] [address] Laboratory Report Ordering Provider Test Date Status DORIAN GAMABROWSKI [facility] 05/16/2018 10:51:00 F inal Observation Date Value Abnormality Reference Status BUN 05/16/2018 12:33 32 Above high normal 6-20 Final Creatinine 05/16/2018 12:33 1.4 Above high normal 0.5- 1.0 Final Performing Location [facility] [address] [place] [address]
--- OUTSIDE RECORDS SUMMARY | 2023-06-01 06:03 | External Medical Summary | Summary of Care ---
Author Name Unknown Organization [place] [address] Phone Care Team Providers Care Cricket Coach Name Role Phone Sanjiv Tolliver DO Primary Care Provider [phone] Reason for Visit * Reason Comments eRx-Medication Refill Encounter Details Date Type Department Care Team Description 04/23/2018 Refill Family Practice [facility] [address] [place] [address] Teddy De Oliveira MD [address] [facility] [place] [address] [phone] HTN, goal below 130/80 Allergies Active Allergy [...] ([facility]) Inject 66 Units under the [...] type 2, goal: symptom mgmt ([facility]) Inject 1.8 mg under the [...] Active metFORMIN ER (GLUCOPHAGE XR) 500 MG [id number]:Unc ontrolled type 2 diabetes mellitus with stage [...] TWICE DAILY 60 Tab 11 04/25/2018 Active metoprolol tartrate (LOPRESSOR) 25 MG TabletIndications:H TN, goal below 130/80 Take 1 Tab by mouth 2 times a day. 180 Tab 1 07/14/2017 8 Discontinued as of this encounter Active Problems Problem Noted Date Controlled substance agreement signed Body mass index (BMI) of 50.0 to 59.9 in adult ([facility]) 06/27/2017 Overview: Per Obesity protocol #1 - Per Obesity Taxonomy ICD-10 update of inactive term Uncontrolled type 2 diabetes mellitus with stage 3 chronic kidney disease, with long-term current use of insulin ([facility]) 05/24/2017 Gastroesophageal reflux disease with eso phagitis 03/04/2017 Restless legs syndrome 03/25/2016 Fibromyalgia 02/02/2016 Abnormality of gait 02/02/2016 Type 2 diabetes mellitus with hemoglobin A1c goal of 7.0%-8.0% ([facility]) 10/14/2014 Overview: ICD-10 update of [...] 76%, time <89% 6:21 hours, T[facility] Postsurgical hypothyroidism 06/16/2011 Depression with [...] (BMI) of 40.0-44.9 in adult ([facility] ) 08/17/2010 05/24/2017 Obesity, morbid (more than 1 00 lbs over ideal weight or BMI > 40) ([facility]) 12/23/2009 06/30/2017 Overview: Per Obesity Taxonomy ICD-10 update of inactive term HTN, GOAL BELOW 130/80 10/22/2009 2 Overview: Per HTN Taxonomy. Pneumonia in aspergillosis ([facility]) 09/14/2009 02/15/2017 Venous thrombosis 09/14/2009 10/15/2010 Respiratory failure, acute ([facility]) 09/14/2009 02/15/2017 Spontaneous pneumothorax 09/14/2009 017 Dysuria 08/23/2009 02/15/2017 Type 2 diabetes mellitus wit h hemoglobin A1c goal of less than 7.0% ([facility]) 07/10/2009 10/14/2014 Overview: Modified per Diabetes protocol #14. ICD-10 update of inactive term Dyslipidemia, goal LDL below 160 08/16/2007 09/04/2009 Overview: Per Lipid Taxonomy. HTN, goal below 140/90 04/09/2003 0 Overview: Per HTN Taxonomy. DM type 2, not at goal ([facility]) 05/29/2002 Overview: Modified per Diabetes [...] Telephone Encounter - Sanjiv Tolliver DO - 04/25/2018 10:04 AM EDT Signed Prescriptions: Disp Refills metoprolol tartrate (LOPRESSOR) 25 MG Tabl*60 Tab 11 Sig: TAKE ONE TABLET BY MOUTH TWICE DAILY Authorizing Provider: SANJIV TOLLIVER * Telephone Encounter - Mattie Hilario LPN - 04/25/2018 9:27 AM EDT Pending Prescriptions: Disp Refills metoprolol tartrate (LOPRESSOR) 25 MG Tab*60 Tab 11 Sig: TAKE ONE TABLET BY MOUTH TWICE DAILY * Telephone Encounter - Flaca Real CHUYITA Amor - 04/25/2018 9:05 AM EDT Pending Prescriptions: Disp Refills metoprolol tartrate (LOPRESSOR) 25 MG Tab*60 Tab 11 Sig: TAKE ONE TABLET BY MOUTH TWICE DAILY * Telephone Encounter - Flaca Real CHUYITA Amor - 04/25/2018 9:04 AM EDT Pending Prescriptions: Disp Refills metoprolol tartrate (LOPRESSOR) 25 MG Tab*60 Tab 11 Sig: TAKE ONE TABLET BY MOUTH TWICE DAILY Last Office Visit: 03/24/2018 Next Office Visit: 05/01/2018 Scheduled Provider(s): Kevin Whiteside DO lr 10-19-17 in this encounter Plan of Treatment Upcoming Encounters Date Type Specialty Care Team Description 05/01/2018 Office Visit Family Medicine Kevin Whiteside DO [address] [place] [address] [phone] 05/02/2018 Office Visit Sleep Disorders Celsa Tafoya CRNP [address] [place] [address] [phone] 05/16/2018 Pharmacy Pharmacy , [facility] [address] [place] [address] [phone] Health Maintenance Due Date Last Done Comments [...] Additional history exists CKD GFR USE SMARTSET 85097 06/30/201812/29, 12/26/2017, 07/14/2017, Additional history exists DIABETES-HGBA1C EVERY 6 MONTHS 06/30/2018 0 12/29/2017, 07/14/2017, 05/05/2017, Additional history exists DIABETES-LDL EVERY 12 MONTHS 07/14/2018, 10/28/2016, 06/24/2016, Additional history exists CKD HGB USE SMARTSET 30606 12/26/201812/26, 05/21/2017, 05/05/2017, Additional history exists DIABETES-URINE MICROALBUMIN EVERY 12 MONTHS 12/26/2018 12/26/2017, 05/21/2017, 05/05/2017, Additional history exists CKD PHOS USE SMARTSET 00373 12/29/2018 04/0 01/2018, 08/26/2009, 08/25/2009, Additional history exists DIABETES-FOOT EXAM 12/29/2018 12/29/2017, 0 10/21/2016, 12/11/2015, Additional history exists PNEUMOCOCCAL 19-64 MEDIUM RISK Completed 08/22/2009 , 06/15/2006 as of this encounter Implants Not on fileas of this encounter Visit Diagnoses Diagnosis HTN, goal below 130/80 Unspecified essential hypertension in this encounter
--- OUTSIDE RECORDS SUMMARY | 2023-06-01 06:03 | External Medical Summary ---
Author Name Unknown Address [address] [id number] Phone Organization K01:[facility] [address] [id number] Laboratory Report Ordering Provider Test Date Status LONG CAMARENA 06/05/2018 11:49:00 Final Observation Date Value Abnormality Reference Status Troponin T 06/05/2018 18:44 21 Above high normal 0-14 Final Performing Location [facility] [address] [facility] [address]
--- OUTSIDE RECORDS SUMMARY | 2023-06-01 06:03 | External Medical Summary ---
Author Name Unknown Address [address] [facility] [place] [address] Phone Organization K0G:Jaylan Ordaz [address] [facility] [place] [address] Laboratory Report Ordering Provider Test Date Status LONG CAMARENA 06/05/2018 11:49:00 Final Observation Date Value Abnormality Reference Status BUN 06/05/2018 12:51 16 6-20 Fin al Creatinine 06/05/2018 12:51 1.1 Above high normal 0.5- 1.0 Final Performing Location [facility] Jeramie Ordaz [address] [place] [address]
--- OUTSIDE RECORDS SUMMARY | 2023-06-01 06:03 | External Medical Summary ---
Author Name Unknown Address [address] [facility] [place] [address] Phone Organization K01:[facility] [address] [id number] Laboratory Report Ordering Provider Test Date Status LONG CAMARENA 05/01/2018 09:13:00 Final Observation Date Value Abnormality Reference Status Albumin, Urine 05/01/2018 14:49 <1.20 Final Creatinine [Moles/volume] in Urine 05/01/2018 14:49 67 Final Microalbumin / Creatinine Ratio 05/01/2018 14:49 <18 <30 Final Performing Location [facility] [address] [facility] [address]
--- OUTSIDE RECORDS SUMMARY | 2023-06-01 06:03 | External Medical Summary ---
Author Name Unknown Address [address] [place] [address] Phone Organization K01:[facility] [address] [id number] Laboratory Report Ordering Provider Test Date Status LONG CAMARENA 06/05/2018 11:49:00 Final Observation Date Value Abnormality Reference Status BNP, Pro-hormone 06/05/2018 18:43 95 0-299 Final Performing Location [facility] [address] [facility] [address]
--- OUTSIDE RECORDS SUMMARY | 2023-06-01 06:03 | External Medical Summary ---
Author Name Unknown Address [address] [phone] Phone Organization K01:[facility] [address] [id number] Laboratory Report Ordering Provider Test Date Status DORIAN GAMA [facility] 05/16/2018 10:52:00 F inal Observation Date Value Abnormality Reference Status Vitamin B12 05/16/2018 19:15 [phone] F inal Performing Location [facility] [address] [facility] [address]
--- OUTSIDE RECORDS SUMMARY | 2023-06-01 06:03 | External Medical Summary | Summary of Care ---
Author Name Unknown Organization [place] [address] Phone Care Team Providers Care Tipple Boss Name Role Phone Kevin Whiteside DO Primary Care Provider Reason for Referral * Evaluate & Treat - Unlimited Visits (Within 10 days (routine)) Status Reason Specialty Diagnoses / Procedures Referred By Contact Referred To Contact Authorized Specialty Services Required Ophthalmology Diagnoses DM type 2 nursing care encounter (HCC) Kevin Whiteside DO [address] [place] [address] Reason for Visit * Reason Comments RECHECK 3 mo recheck Encounter Details Date Type Department Care Team Description 05/01/2018 Office Visit Family [facility] [address] [place] [address] Kevin Whiteside DO [address] [place] [place] [address] [phone] DM type 2 nursing care encounter (HCC)*;Uncontrolled type 2 diabetes mellitus with stage 3 chronic kidney disease, with long-term current use of insulin (HCC);Dyslipidemia, goal LDL below 100;Body mass index (BMI) of 50.0 to 59.9 in adult (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 2 Tab 0 05/01/2018 8 Active cyclobenzaprine (FLEXERIL) 10 MG Tablet TAKE ONE TABLET BY MOUTH AT BEDTIME NEEDED FOR MUSCLE SPASM 30 Tab 2 10/21/2016 8 Discontinued ciprofloxacin (CIPRO) 250 MG TabletIndications:A cute cystitis without hematuria Take 1 Tab by mouth every 12 hours. 6 Tab 0 03/24/2018 8 Discontinued cyclobenzaprine (FLEXERIL) 10 MG Tablet TAKE ONE TABLET BY MOUTH AT BEDTIME NEEDED FOR MUSCLE SPASM 30 Tab 2 05/01/2018 8 Discontinued as of this encounter Active [...] 10/14/2014 Overview: ICD-10 update of inactive term Brothers filter in place 08/19/2014 History of pulmonary [...] Overview: Per Obesity Taxonomy Perforation of intestine ([facility]) 0 02/15/2017 Overview: COLON Diverticulitis as [...] Vital Sign Reading Time Taken Blood Pressure 128/82 05/01/2018 8:44 AM EDT Pulse 80 05/01/2018 8:44 AM EDT Temperature 36.1 C (96.9 F) 05/01/2018 8 :44 AM EDT Respiratory Rate 24 05/01/2018 8:44 AM EDT Oxygen Saturation - - Inhaled Oxygen Concentration - - Weight 153.9 kg (339 lb 4 oz) 8 8:44 AM EDT Height - - Body Mass Index 58.23 05/01/2018 8:44 AM EDT in this encounter Instructions * Patient Instructions - Jennifer Cesar LPN - 05/01/2018 8:47 AM EDT Dear Stephanie Camp, The care of [...] Address and Fax Number: Kevin Whiteside DO [address] [address] in this encounter Progress Notes * Kevin Whiteside DO - 05/01/2018 9:01 AM EDT Formatting of this note may be different from the original. Nursing Notes: Jennifer Cesar LPN 05/01/18 0850 Signed Chief Complaint Patient presents with RECHECK 3 mo recheck HPI: Stephanie Camp is a 63 year old female who presents for ROS: CONSTITUTIONAL: no weight loss, no fevers, [...] memory loss, no numbness PSYCH: no SI/HI Patient Active Problem List Diagnosis Code Other allergic rhinitis J30.89 ADVANCE DIRECTIVE INFORMATION Primary localized osteoarthrosis, lower leg M17.10 History of heparin-induced thrombocytopenia Z86.2 DYSLIPIDEMIA, GOAL LDL BELOW 100 E78.5 Depression with anxiety F41.8 Postsurgical hypothyroidism E89.0 Hypoxemia R09.02 ELISSA (obstructive sleep apnea) G47.33 Venous insufficiency I87.2 HTN, goal below 130/80 I10 History of pulmonary embolus (PE) Z86.711 Statin intolerance Z78.[address] Z95.828 Type 2 diabetes [...] HOSPITAL) Z68.43 Controlled substance agreement signed Z79.899 Past Medical History: Diagnosis Date Allergic rhinitis due to other allergen Backache Diverticulosis of colon 01/28/06 DM type 2, not at goal ([facility]) Goiter Frank filter in place 08/19/2014 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[facility]) 08/22/2009 History of pulmonary embolus (PE) 07/16/2014 HTN, goal below 140/90 Obesity, BMI not known Perforation of intestine ([facility]) 1996 COLON -- 1996 Pneumonia in aspergillosis(484.6) 09/14/2009 Spontaneous pneumothorax 09/14/2009 Statin intolerance 07/16/2014 Type 2 diabetes mellitus with hemoglobin A1c goal of 7.0%-8.0% (HCC) 10/14/2014 ICD-10 update of inactive term Past Surgical History: Procedure Laterality Date ARTHROPLASTY KNEE TOTAL Right 07/24/14 R COLONOSCOPY, DIAGNOSTIC (RECTUM) 02/18/2016 normal, repeat 10 yrs/[facility] COLONOSCOPY, GI REFERRAL OP 01/28/06 diverticulosis--repeat 10 years INCISION OF WINDPIPE, PLANNED 06/03/2011 TRACHEOSTOMY PLANNED performed by DANNY HOLDER at [facility] KNEE ARTHROSCOPY/DEBRIDEMENT 07/30 L knee cartilage [...] 09/06/09 CHOLECYSTECTOMY performed by AMADOU NUNEZ at [facility] REPAIR RECURRENT INCISIONAL HERNIA 1998 REVISION OF COLOSTOMY, SIMPLE 1997 SUTURE, LARGE INTESTINE W/COLOSTOMY 1996 perforation R colon with colostomy VENA CAVA FILTER/LIGATION/CLIP 08/19/09 Brothers filter placement through the right femoral 08/19/[address] Lerma at [facility] Current Outpatient Prescriptions Medication Sig Dispense Refill cyclobenzaprine (FLEXERIL) 10 MG Tablet TAKE ONE TABLET BY MOUTH AT BEDTIME NEEDED FOR MUSCLE SPASM 30 Tab 2 fluconazole (DIFLUCAN) 150 MG Tablet Take 1 Tab by mouth every other day for 2 doses. 2 Tab 0 metoprolol tartrate (LOPRESSOR) 25 MG Tablet TAKE [...] 20 MG PO CPDR one tablet daily docusate sodium (STOOL SOFTENER) 100 MG Capsule Take 100 mg by mouth 2 times a day as needed for Constipation. Review of patient's allergies indicates: Allergen Reactions Heparin Heparin Induced Thrombocytopenia Morphine And Related Hallucinations Tetanus Toxoid Other (Please comment) Passed out PHYSICAL EXAMINATION: BP 128/82 | Pulse 80 | Temp (Src) 96.9 (Tympanic) | Resp 24 | Wt 339 lbs 4 oz (153.883kg) | BMI 58.23 kg/m | BSA 2.64 m | LMP 03/11/2003 GENERAL: morbidly obese alert, healthy, no distress, well nourished and [...] no joint deformities, effusion, or inflammation, + edema - pitting +2, no clubbing, nocyanosis, Full ROM, Pulses Intact, Strength equal bilaterally NEURO: alert & oriented x 3 with fluent speech, no focal motor/sensory deficits, gait normal, reflexes normal and symmetric MSK: Poor strength, difficult up from chair due to weight ASSESSMENT/PLAN: 1. DM type 2 nursing care encounter ([facility]) Repeating A1C Started Jardiance 25mg with pharmacy management program Appreciate their continued management - OPHTHALMOLOGY(DIABETES-EXTENDED)REFERRAL OP [[id number]] - HEMOGLOBIN A1C; Future - BASIC METAB PANEL; Future - Albumin / Creatinine Ratio, Urine; Future 2. Uncontrolled type 2 diabetes mellitus with stage 3 chronic kidney disease, with long-term current use of insulin ([facility]) Seeing the pharmacy MTM program, recently put on Jardiance. Despite UTIs, I think her benefit wouldlikely outweigh the risk due to her uncontrolled BS. - HEMOGLOBIN A1C; Future - BASIC METAB PANEL; Future - Albumin / Creatinine Ratio, Urine; Future 3. Dyslipidemia, goal LDL below 100 Dietary modifications in order, does not tolerate statins 4. Body mass index (BMI) of 50.0 to 59.9 in adult ([facility]) Educated on weight loss strategies 5. Hypothyroidism, unspecified type - TSH with Free T4 if indicated; Future 6. 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 ELISSA (obstructive sleep apnea) Seeing sleep med for f/u on restless legs and CPAP therapy 8. Postsurgical hypothyroidism As noted, will get TSH and continue 9. Frank filter in place stable 10. Venous insufficiency Bilateral LE edema, does not tolerate stockings, weight is huge part of her issue, educated 11. HTN, goal below 130/80 Well controlled, continue therapy 12. Gastroesophageal reflux disease with esophagitis Controlled at this time on current therapy 13. Restless legs syndrome Requip working ok along with Gabapentin, F/u in sleep med next week 14. Statin intolerance Myalgias with statin, otherwise would benefit from treatment 15. Fibromyalgia Pain a 2/10, otherwise control is ok Kevin Whiteside DO [facility] [address] [place] [address] (This note was completed using the dictation program Fluency Direct. As such, there may be misspellings, word substitutions, or other variations that should not change the essence of the clinical content of this encounter note.If there is need for further clarification, please direct questions to the provider listed above.) Dr. Kevin Whiteside * Jennifer Cesar LPN - 05/01/2018 8:47 AM EDT The importance of having a yearly diabetic eye exam has been discussed with patient. Order and Referral placed along with patient instructions. Provider made aware. Jennifer Cesar LPN in this encounter Nursing Notes * Jennifer Cesar LPN - 05/01/2018 8:46 AM EDT Formatting of this note may be different from the original. Chief Complaint Patient presents with RECHECK 3 mo recheck in this encounter Plan of Treatment Upcoming Encounters Date Type Specialty Care Team Description 05/02/2018 Office Visit Sleep Disorders Celsa Tafoya CRNP [address] [address] [phone] 05/16/2018 [facility] [address] [facility] [address] [phone] 08/01/2018 Office Visit Family Medicine Kevin Whiteside DO [address] [address] [phone] Pending Results Name Priority Associated Diagnoses Date/Ti me HEMOGLOBIN A1C Routine DM type 2 nursing care encounter (HCC) Uncontrolled type 2 diabetes mellitus with stage 3 chronic kidney disease, with long-term current use of insulin (HCC) 05/01/2018 9:12 AM EDT BASIC METAB PANEL, BMP Routine DM type 2 nursing care encounter (HCC) Uncontrolled type 2 diabetes mellitus with stage 3 chronic kidney disease, with long-term current use of insulin (HCC) 05/01/2018 9:12 AM EDT ALBUMIN / CREATININE RATIO, URINE Routine DM type 2 nursing care encounter (HCC) Uncontrolled type 2 diabetes mellitus with stage 3 chronic kidney disease, with long-term current use of insulin (HCC) 05/01/2018 9:13 AM EDT TSH W/FT4 IF TSH IS INDICATED Routine Hypothyroidism, unspecified type 05/01/2018 9:12 AM EDT Scheduled Tests Name Priority Associated Diagnoses Order S chedule HEMOGLOBIN A1C Routine DM type 2 nursing care encounter (HCC) Uncontrolled type 2 diabetes mellitus with stage 3 chronic kidney disease, with long-term current use of insulin (HCC) Expected: 05/01/2018 (Approximate), Expires: 05/01/2019 BASIC METAB PANEL, BMP Routine DM type 2 nursing care encounter (HCC) Uncontrolled type 2 diabetes mellitus with stage 3 chronic kidney disease, with long-term current use of insulin (HCC) Expected: 05/01/2018 (Approximate), Expires: 05/01/2019 ALBUMIN / CREATININE RATIO, URINE Routine DM type 2 nursing care encounter (HCC) Uncontrolled type 2 diabetes mellitus with stage 3 chronic kidney disease, with long-term current use of insulin (HCC) Expected: 05/01/2018 (Approximate), Expires: 05/01/2019 TSH W/FT4 IF TSH IS INDICATED Routine Hypothyroidism, unspecified type Expected: 05/01/2018 (Approximate), Expires: 05/01/2019 Scheduled Referrals Name Priority Associated Diagnoses Order S chedule OPHTHALMOLOGY(DIABE EVE-EXTENDED)REFERR AL OP Within 10 days (routine) DM type 2 nursing care encounter (HCC) Ordered: 05/01/2018 Health Maintenance Due Date Last Done Comments Yearly B-12 1955 DIABETES-EYE EXAM 02/24/2011 02/24/2010 (Do ne elsewhere), 12/18/2009, 02/18/2008 (Done elsewhere) BREAST CANCER SCREENING DISC USSION YEARLY AGES 40-75 05/09/2016 05/09/2015, 07/12/2014, 07/04/2014, Additional history exists PAP SMEAR-EVERY 3 YRS,AGES 21-65 05/11/2016 05/11/2013, 03/01/2008, 10/19/2006, Additional history exists *DEPRESSION SCREENING, UZAIR Amor FOR PTS 18 AND OVER 03/07/2018 *TSH FOR THYROID MEDICATION MONITORING YEARLY 03/07/2018 Influenza Vaccine (FLU shot) (#1) 2018 07/14/2017, 06/24/2016, 07/24/2015, Additional history exists CKD GFR USE SMARTSET 73576 06/30/201812/29, 12/26/2017, 07/14/2017, Additional history exists DIABETES-HGBA1C EVERY 6 MONTHS 06/30/2018 0 12/29/2017, 07/14/2017, 05/05/2017, Additional history exists DIABETES-LDL EVERY 12 MONTHS 07/14/2018, 10/28/2016, 06/24/2016, Additional history exists CKD HGB USE SMARTSET 73644 12/26/201812/26, 05/21/2017, 05/05/2017, Additional history exists CKD PHOS USE SMARTSET 96128 12/29/2018 04/0 01/2018, 08/26/2009, 08/25/2009, Additional history exists DIABETES-FOOT EXAM 12/29/2018 12/29/2017, 0 10/21/2016, 12/11/2015, Additional history exists PNEUMOCOCCAL 19-64 MEDIUM RISK Completed 08/22/2009 , 06/15/2006 as of this encounter Implants Not on fileas of this encounter Visit Diagnoses Diagnosis DM type 2 nursing care [facility] ([facility]) - Primary Type II or unspecified type diabetes mellitus without mention of complication, not stated as uncontrolled Uncontrolled type 2 diabetes mellitus with stage 3 chronic kidney disease, with long-term current use of insulin ([facility]) Dyslipidemia, goal LDL below 100 Other and unspecified hyperlipidemia Body mass index (BMI) of 50. 0 to 59.9 in adult ([facility]) Hypothyroidism, unspecified type Other custodial (current) dr ug therapy ELISSA (obstructive sleep apnea ) Obstructive sleep apnea (adult) (pediatric) Postsurgical hypothyroidism Frank filter in place Other postprocedural status Venous insufficiency Unspecified venous (peripheral) insufficiency HTN, goal below 130/80 Unspecified essential hypertension Gastroesophageal reflux dise ase with esophagitis Restless legs syndrome Restless legs syndrome (RLS) Statin intolerance Other drug allergy Fibromyalgia Mylagia and myositis, unspecified in this encounter"
--- OUTSIDE RECORDS SUMMARY | 2023-06-01 06:03 | External Medical Summary ---
Author Name Unknown Address [address] [facility] [place] [address] Phone Organization K0G:Jaylan Bobo Ordaz [address] [facility] [place] [address] Laboratory Report Ordering Provider Test Date Status LONG CAMARENA 05/01/2018 09:12:00 Final Observation Date Value Abnormality Reference Status BUN 05/01/2018 10:26 37 Above high normal 6-20 Final Creatinine 05/01/2018 10:26 1.7 Above high normal 0.5- 1.0 Final Performing Location [facility] [place] Jeramie Ordaz [address] [employer] [address]
--- OUTSIDE RECORDS SUMMARY | 2023-06-01 06:03 | External Medical Summary ---
Author Name Unknown Address [facility] [place] [address] Phone Organization K01:[place] [address] [id number] Laboratory Report Ordering Provider Test Date Status MIGUE,ALVES 05/01/2018 09:12:00 Final Observation Date Value Abnormality Reference Status TSH 05/01/2018 19:02 3.14 0.27-4.2 Fin al T4, Free 05/01/2018 19:02 NOT APPLICABLE 0.9-1.7 Final Performing Location [address] [address]
--- OUTSIDE RECORDS SUMMARY | 2023-06-01 06:04 | External Medical Summary ---
Author Name Unknown Address Unknown Organization R:IT USE ONLY!!! Laboratory Report Ordering Provider Test Date Status ISMAEL RODRIGUEZ 03/24/2018 17:14:00 Final Observation Date Value Abnormality Reference Status Source 03/24/2018 17:15 CLEAN CATCH URINE Final Bacteria identified in Unspecified specimen by Culture 03/26/2018 21:59 >100,000 COLONIES/ML CITROBACTER FREUNDII This bacterial species is known to produce a chromosomal AmpC inducible beta lactamase. Penicillin or cephalosporin use, with the exception of cefepime, may result in resistance. Abnormal Final Bacteria identified in Unspecified specimen by Culture 03/26/2018 21:59 LESS THAN 10,000 COLONIES/ML MIXED NORMAL MELISSA Final REPORT STATUS 03/27/2018 14:59 03/27/2018 FINAL Final Bacteria identified in Isolate by Culture 03/26/2018 21:59 CITROBACTER FREUNDII Abnormal Final Performing Location IT USE ONLY!!!
--- OUTSIDE RECORDS SUMMARY | 2023-06-01 06:04 | External Medical Summary | Summary of Care ---
Author Name Unknown Organization [facility] [place] [address] Phone Care Team Providers Care Vegetable Washing Machine Operator Name Role Phone Sanjiv Isabel DO Primary Care Provider Reason for Visit * Reason Comments URINARY TRACT INFECTION SYMPTOMS Encounter Details Date Type Department Care Team Description 03/24/2018 Telephone Family Practice [facility] [address] [facility] [place] [address] [facility] De Oliveira [facility] [address] [facility] [address] [phone] URINARY TRACT INFECTION SYMPTOMS Allergies Active Allergy Reactions Severity Noted Date [...] goal of 7.0%-8.0% ([facility]) Inject 66 Units under the skin 2 times a day. Titrate by 2 units until SBGM <150 2 Pre-filled Pen Syringe Dosing Unit 11 05/24/2017 Active clonazePAM (KLONOPIN) 0.5 MG TabletIndications:Anx iety state Take 1 Tab by mouth 2 times a day. 180 Tab 1 07/14/2017 Active metoprolol tartrate (LOPRESSOR) 25 MG TabletIndications:HTN , goal below 130/80 Take 1 Tab by mouth 2 times a day. 180 Tab 1 07/14/2017 Active lisinopril (PRINIVIL) 10 MG TabletIndications:HTN , goal below 140/80 TAKE ONE TABLET BY MOUTH ONE TIME DAILY 90 Tab 1 10/21/2017 Active levothyroxine (LEVOXYL) 25 MCG TabletIndications:Pos tsurgical hypothyroidism TAKE ONE TABLET BY MOUTH IN THE MORNING AT LEAST 30 MINUTES PRIOR TO BREAKFAST OR OTHER MEDS 90 Tab 0 12/29/2017 Active sertraline (ZOLOFT) 100 MG TabletIndications:Dep ression with anxiety 1 1/2 tabs daily 135 Tab 1 12/29/2017 Active gabapentin (NEURONTIN) 300 MG CapsuleIndications:Ne uropathy,Fibromyalgia one pill twice a day x 2 wks Then one pill three times a day 90 Cap 2 12/29/2017 Active BD PEN NEEDLE SHORT U/F [...] Active metFORMIN ER (GLUCOPHAGE XR) 500 MG [id number]:Uncon trolled type 2 diabetes mellitus with stage 3 chronic kidney disease, with long-term current use of insulin ([facility]) Take 4 Tabs by mouth daily. 360 Tab 1 03/07/2018 Active rOPINIRole (REQUIP) 1 MG TabletIndications:Res tless legs syndrome TAKE ONE TABLET BY MOUTH AT BEDTIME 30 Tab 4 03/09/2018 Active as of this encounter Active Problems Problem Noted Date Controlled substance agreement signed Body mass index (BMI) of 50.0 to 59.9 in adult ([facility]) 06/27/2017 Overview: Per Obesity protocol #1 - Per Obesity Taxonomy ICD-10 update of inactive term Uncontrolled type 2 diabetes mellitus with stage 3 chronic kidney disease, with long-term current use of insulin ([facility]) 05/24/2017 Gastroesophageal reflux disease with eso phagitis 03/04/2017 Restless legs syndrome 03/25/2016 Fibromyalgia 02/02/2016 Abnormality of gait 02/02/2016 Type 2 diabetes mellitus with hemoglobin A1c goal of 7.0%-8.0% ([facility]) 10/14/2014 Overview: ICD-10 update of inactive term [...] (BMI) of 40.0-44.9 in adult ([facility] ) 08/17/2010 05/24/2017 Obesity, morbid (more than 1 00 lbs over ideal weight or BMI > 40) ([facility]) 12/23/2009 06/30/2017 Overview: Per Obesity Taxonomy ICD-10 update of inactive term HTN, GOAL BELOW 130/80 10/22/2009 2 Overview: Per HTN Taxonomy. Pneumonia in aspergillosis ([facility]) 09/14/2009 02/15/2017 Venous thrombosis 09/14/2009 10/15/2010 Respiratory failure, acute ([facility]) 09/14/2009 02/15/2017 Spontaneous pneumothorax 09/14/2009 017 Dysuria 08/23/2009 02/15/2017 Type 2 diabetes mellitus wit h hemoglobin A1c goal of less than 7.0% ([facility]) 07/10/2009 10/14/2014 Overview: Modified per Diabetes protocol #14. ICD-10 update of inactive term Dyslipidemia, goal LDL below 160 08/16/2007 09/04/2009 Overview: Per Lipid Taxonomy. HTN, goal below 140/90 04/09/2003 0 Overview: Per HTN Taxonomy. DM type 2, not at goal ([facility]) 05/29/2002 Overview: Modified per Diabetes protocol #14. TENOSYNOVITIS FOOT-ANKLE 12/26/2001 017 Goiter 01/13/2000 06/28/2011 BACKACHE NOS 08/26/1999 05/24/2017 OBESITY, UNSPECIFIED 08/26/1999 12/23/2009 Overview: Per Obesity Taxonomy Perforation of intestine ([facility]) 0 02/15/2017 Overview: COLON Diverticulitis as of [...] Telephone Encounter - Jennifer Cesar LPN - 03/24/2018 10:03 AM EDT Appt scheduled with Dr Isabel for today * Telephone Encounter - Sue Stoll LPN - 03/24/2018 9:53 AM EDT Pt calling for UTI symptoms, and states that her feet don't look right and are sore for several days. Pt scheduled today 03/24/18 1440. * Telephone Encounter - Xenia Teran OSA - 03/24/2018 9:48 AM EDT Reason for patient's call: UTI Caller was transferred to [facility] at the dedicated phone nurse line. in this encounter Plan of Treatment Upcoming Encounters Date Type Specialty Care Team Description 04/25/2018 Pharmacy Pharmacy Sp, [facility] [address] [place] [address] [phone] 05/01/2018 Office Visit Family Medicine Kevin Whiteside DO [address] [place] [address] [phone] 05/02/2018 Office Visit Sleep Disorders Celsa Tafoya CRNP [address] [place] [address] [phone] Health Maintenance Due Date Last Done Comments [...] Additional history exists CKD GFR USE SMARTSET 06830 06/30/201812/29, 12/26/2017, 07/14/2017, Additional history exists DIABETES-HGBA1C EVERY 6 MONTHS 06/30/2018 0 12/29/2017, 07/14/2017, 05/05/2017, Additional history exists DIABETES-LDL EVERY 12 MONTHS 07/14/2018, 10/28/2016, 06/24/2016, Additional history exists CKD HGB USE SMARTSET 68729 12/26/201812/26, 05/21/2017, 05/05/2017, Additional history exists DIABETES-URINE MICROALBUMIN EVERY 12 MONTHS 12/26/2018 12/26/2017, 05/21/2017, 05/05/2017, Additional history exists CKD PHOS USE SMARTSET 53920 12/29/2018 04/0 01/2018, 08/26/2009, 08/25/2009, Additional history exists DIABETES-FOOT EXAM 12/29/2018 12/29/2017, 0 10/21/2016, 12/11/2015, Additional history exists PNEUMOCOCCAL 19-64 MEDIUM RISK Completed 08/22/2009 , 06/15/2006 as of this encounter Implants Not on fileas of this encounter
--- OUTSIDE RECORDS SUMMARY | 2023-06-01 06:04 | External Medical Summary | Summary of Care ---
Author Name Unknown Organization [place] [address] Phone Care Team Providers Care Squaring Machine Operator Name Role Phone Teddy De Oliveira MD Primary Care Provider [phone] Reason for Visit * Reason Comments eRx-Medication Refill Encounter Details Date Type Department Care Team Description 01/21/2018 Refill Family Practice [facility] [address] [facility] [place] [address] Teddy De Oliveira MD [address] [place] [address] [phone] Allergies Active Allergy Reactions Severity Noted Date [...] of sleep. 1 Each 0 04/07/2016 Active AUG BETAMETHASONE DIPROPIONATE (DIPROLENE AF) 0.05 % creamIndications:Derm atitis Apply to affected areas on legs twice daily as needed 50 g 5 09/28/2016 Active cyclobenzaprine (FLEXERIL) 10 MG Tablet TAKE ONE TABLET BY MOUTH AT BEDTIME NEEDED FOR MUSCLE SPASM 30 Tab 2 10/21/2016 Active Insulin Pen Needle (BD PEN NEEDLE SHORT U/F) 31G X 8 MMIndications:Type 2 diabetes mellitus with hemoglobin A1c goal of 7.0%-8.0% ([facility]) Use 3 times daily (for Lantus twice a day and Victoza daily) and as needed 100 Box Dosing Unit 11 03/03/2017 Active docusate sodium (STOOL SOFTENER) 100 MG Capsule Take 100 mg by mouth 2 times a day as needed for Constipation. Active insulin glargine (INSULIN GLARGINE) 100 UNIT/ML SOPNIndications:Type 2 diabetes mellitus with hemoglobin A1c goal of 7.0%-8.0% ([facility]) Inject 66 Units under the skin 2 times a day. Titrate by 2 units until SBGM <150 2 Pre-filled Pen Syringe Dosing Unit 11 05/24/2017 Active Nortriptyline HCl 50 MG CapsuleIndications:Fi bromyalgia TAKE ONE CAPSULE BY MOUTH AT BEDTIME 30 Cap 11 07/08/2017 Active clonazePAM (KLONOPIN) 0.5 MG TabletIndications:Anx iety [...] breakfast or other meds) 90 Tab 1 07/14/2017 Active metFORMIN ER (GLUCOPHAGE XR) 500 MG [id number]:Uncon trolled type 2 diabetes mellitus with stage 3 chronic kidney disease, with long-term current use of insulin ([facility]) Take 1 Tab by mouth daily. 30 Tab 11 07/14/2017 Active rOPINIRole (REQUIP) 1 MG TabletIndications:Res tless legs syndrome TAKE ONE TABLET BY MOUTH AT BEDTIME 30 Tab 5 09/29/2017 Active lisinopril (PRINIVIL) 10 MG TabletIndications:HTN , goal below 140/80 TAKE ONE TABLET BY MOUTH ONE TIME DAILY 90 Tab 1 10/21/2017 Active liraglutide (VICTOZA) 18 MG/3ML SOPNIndications:DM type 2, goal: symptom mgmt ([facility]) Inject 1.8 mg under the skin daily. If unable to tolerate, decrease dose back to 1.2 mg daily 2 Pre-filled Pen Syringe Dosing Unit 11 11/02/2017 Active levothyroxine (LEVOXYL) 25 MCG TabletIndications:Pos tsurgical hypothyroidism TAKE ONE TABLET BY MOUTH IN THE MORNING AT LEAST 30 MINUTES PRIOR TO BREAKFAST OR OTHER MEDS 90 Tab 0 12/29/2017 Active hydrochlorothiazide (HYDRODIURIL) 12.5 MG CapsuleIndications:HT N, goal below 130/80 Take 1 Cap by mouth daily. 90 Cap 3 12/29/2017 Active sertraline (ZOLOFT) 100 MG TabletIndications:Dep [...] 100 Box Dosing Unit 11 01/23/2018 Active as of this encounter Active Problems Problem Noted Date Controlled substance agreement signed Body mass index (BMI) of 50.0 to 59.9 in adult ([facility]) 06/27/2017 Overview: Per Obesity protocol #1 - Per Obesity Taxonomy ICD-10 update of inactive term Uncontrolled type 2 diabetes mellitus with stage 3 chronic kidney disease, with long-term current use of insulin ([facility]) 05/24/2017 Gastroesophageal reflux disease with eso phagitis 03/04/2017 Restless legs syndrome 03/25/2016 Fibromyalgia 02/02/2016 Abnormality of gait 02/02/2016 Type 2 diabetes mellitus with hemoglobin A1c goal of 7.0%-8.0% ([facility]) 10/14/2014 Overview: ICD-10 update of inactive term Emerson filter in place 08/19/2014 History of pulmonary [...] mass index (BMI) of 40.0-44.9 in adult ([facility] ) 08/17/2010 05/24/2017 Obesity, morbid (more than 1 00 lbs over ideal weight or BMI > 40) ([facility]) 12/23/2009 06/30/2017 Overview: Per Obesity Taxonomy ICD-10 update of inactive term HTN, GOAL BELOW 130/80 10/22/2009 2 Overview: Per HTN Taxonomy. Pneumonia in aspergillosis ([facility]) 09/14/2009 02/15/2017 Venous thrombosis 09/14/2009 10/15/2010 Respiratory failure, acute ([facility]) 09/14/2009 02/15/2017 Spontaneous pneumothorax 09/14/2009 017 Dysuria 08/23/2009 02/15/2017 Type 2 diabetes mellitus wit h hemoglobin A1c goal of less than 7.0% ([facility]) 07/10/2009 10/14/2014 Overview: Modified per Diabetes protocol #14. ICD-10 update of inactive term Dyslipidemia, goal LDL below 160 08/16/2007 09/04/2009 Overview: Per Lipid Taxonomy. HTN, goal below 140/90 04/09/2003 0 Overview: Per HTN Taxonomy. DM type 2, not at goal ([facility]) 05/29/2002 Overview: Modified per Diabetes [...] Miscellaneous Notes * Telephone Encounter - Teddy De Oliveira MD - 01/23/2018 12:12 PM EDT Signed Prescriptions: Disp Refills BD PEN NEEDLE SHORT U/F 31G X 8 MM 100 Jamison*11 Sig: use twice daily Authorizing Provider: TEDDY DE OLIVEIRA * Telephone Encounter - Jennifer Cesar LPN - 01/23/2018 10:23 AM EDT Pending Prescriptions: Disp Refills BD PEN NEEDLE SHORT U/F 31G X 8 MM [Pharm*100 Jamison*11 Sig: use twice daily * Telephone Encounter - Frances Ceballos, CHUYITA - 01/23/2018 10:21 AM EDT Pending Prescriptions: Disp Refills BD PEN NEEDLE SHORT U/F 31G X 8 MM [Pharm*100 Jamison*11 Sig: use twice daily * Telephone Encounter - Frances Ceballos, CHUYITA - 01/23/2018 10:20 AM EDT Formatting of this note may be different from the original. Pending Prescriptions: Disp Refills BD PEN NEEDLE SHORT U/F 31G X 8 MM [Pharm*100 Jamison*11 Sig: use twice daily Last Office Visit: 12/29/2017 Next Office Visit: 01/26/2018 Scheduled Provider(s): Teddy De Oliveira MD Last date the medication was ordered: 03/03/17 Patient Active Problem List Diagnosis Code Other allergic rhinitis J30.89 ADVANCE DIRECTIVE INFORMATION Primary localized osteoarthrosis, lower leg M17.10 History of heparin-induced thrombocytopenia Z86.2 DYSLIPIDEMIA, GOAL LDL BELOW 100 E78.5 Depression with anxiety F41.8 Postsurgical hypothyroidism E89.0 Hypoxemia R09.02 ELISSA (obstructive sleep apnea) G47.33 Venous insufficiency I87.2 HTN, goal below 130/80 I10 History of pulmonary embolus (PE) Z86.711 Statin intolerance Z78.[address] Z95.828 Type 2 diabetes mellitus with hemoglobin A1c goal of 7.0%-8.0% ([facility]) E11.9 Fibromyalgia M79.7 Abnormality of gait R26.9 Restless legs syndrome G25.81 Gastroesophageal reflux disease with esophagitis K21.0 Uncontrolled type 2 diabetes mellitus with stage 3 chronic kidney disease, with long-term current use of insulin ([facility]) E11.22, E11.65, N18.3, Z79.4 Body mass index (BMI) of 50.0 to 59.9 in adult ([facility]) Z68.43 Controlled substance agreement signed Z79.899 Labs: [...] FINAL 07/14/17 12:35P 07/14/17 9.3* FINAL HEMOGLOBIN, [id number] LAB(%) Nessa Dt/Tm Resulted Value Status 05/05/17 05/06/17 9.7* FINAL in this encounter Plan of Treatment Upcoming Encounters Date Type Specialty Care Team Description 01/26/2018 Office Visit Family Practice Teddy De Oliveira MD [address] [place] [address] 01/31/2018 Pharmacy Pharmacy Sp, [facility] [address] [facility], [place] [id number] 2018 Office Visit Sleep Disorders Celsa Tafoya CRNP [address] [place] [address] [facility] Nurse Sleep Disorders [address] [place] [address] Health Maintenance Due Date Last Done Comments Yearly B-12 1955 DIABETES-EYE EXAM 02/24/2011 02/24/2010 (Do ne elsewhere), 12/18/2009, 02/18/2008 (Done elsewhere) BREAST CANCER SCREENING DISC USSION YEARLY AGES 40-75 05/09/2016 05/09/2015, 07/12/2014, 07/04/2014, Additional history exists PAP SMEAR-EVERY 3 YRS,AGES 21-65 05/11/2016 05/11/2013, 03/01/2008, 10/19/2006, Additional history exists CKD GFR USE SMARTSET 19809 06/30/201812/29, 12/26/2017, 07/14/2017, Additional history exists DIABETES-HGBA1C EVERY 6 MONTHS 06/30/2018 0 12/29/2017, 07/14/2017, 05/05/2017, Additional history exists DIABETES-LDL EVERY 12 MONTHS 07/14/2018, 10/28/2016, 06/24/2016, Additional history exists CKD HGB USE SMARTSET 36526 12/26/201812/26, 05/21/2017, 05/05/2017, Additional history exists DIABETES-URINE MICROALBUMIN EVERY 12 MONTHS 12/26/2018 12/26/2017, 05/21/2017, 05/05/2017, Additional history exists CKD PHOS USE SMARTSET 11538 12/29/2018 04/0 01/2018, 08/26/2009, 08/25/2009, Additional history exists DIABETES-FOOT EXAM 12/29/2018 12/29/2017, 0 10/21/2016, 12/11/2015, Additional history exists PNEUMOCOCCAL 19-64 MEDIUM RISK Completed 08/22/2009 , 06/15/2006 Influenza Vaccine (FLU shot) Completed , 06/24/2016, 07/24/2015, Additional history exists as of this encounter Implants Not on fileas of this encounter Insurance Payer Benefit Plan / Group Subscriber ID Type Phone Address [facility]un [facility] startuply [facility] EXTRA [id number] [address] [place] [phone] [facility] [id number] as of this encounter
--- OUTSIDE RECORDS SUMMARY | 2023-06-01 06:04 | External Medical Summary | Summary of Care ---
Author Name Unknown Organization [place] [address] Phone Care Team Providers Care Supervisor Road Administrator Name Role Phone Teddy De Oliveira MD Primary Care Provider [phone] Reason for Visit * Reason Comments Dosage Adjustment In Person (Anticoag Cl inic) Diabetes Education Encounter Details Date Type Department Care Team Description 02/07/2018 Pharmacy Pharmacy, [facility] [address] [place] [address] Sp, [facility] [address] [place] [address] [phone] Uncontrolled type 2 diabetes mellitus with stage 3 chronic kidney disease, with long-term current use of insulin ([facility])*;DM type 2, goal: symptom mgmt ([facility]) Allergies Active Allergy Reactions Severity Noted [...] of 7.0%-8.0% ([facility]) Inject 66 Units under the skin [...] a day. 180 Tab 1 07/14/2017 Active rOPINIRole (REQUIP) 1 MG TabletIndications:R estless legs syndrome TAKE ONE TABLET BY MOUTH AT BEDTIME 30 Tab 5 09/29/2017 Active lisinopril (PRINIVIL) 10 MG TabletIndications:H TN, goal below 140/80 TAKE ONE TABLET BY MOUTH ONE TIME DAILY 90 Tab 1 10/21/2017 Active levothyroxine (LEVOXYL) 25 MCG TabletIndications:P ostsurgical hypothyroidism TAKE ONE TABLET BY MOUTH IN THE MORNING AT LEAST 30 MINUTES PRIOR TO BREAKFAST OR OTHER MEDS 90 Tab 0 12/29/2017 Active sertraline (ZOLOFT) 100 MG TabletIndications:D epression with anxiety 1 1/2 tabs daily 135 Tab 1 12/29/2017 Active gabapentin (NEURONTIN) 300 MG CapsuleIndications: Neuropathy,Fibromya [...] Pen Syringe Dosing Unit 11 02/08/2018 Active metFORMIN ER (GLUCOPHAGE XR) 500 MG [id number]:Unc ontrolled type 2 diabetes mellitus with stage 3 chronic kidney disease, with long-term current use of insulin ([facility]) Take 2 Tabs by mouth daily. 90 Tab 1 02/08/2018 Active ONETOUCH DELICA LANCETS 33G MISC Check blood sugars twice daily as directed 100 Each 02/08/2018 Active Glucose Blood (ONETOUCH ULTRA BLUE) STRP Check sugars twice daily as directed 100 Strip 02/08/2018 Active liraglutide (VICTOZA) 18 MG/3ML SOPNIndications:DM type 2, goal: symptom mgmt ([facility]) Inject 1.8 mg under the skin daily. If unable to tolerate, decrease dose back to 1.2 mg daily 2 Pre-filled Pen Syringe Dosing Unit 11 11/02/2017 8 Discontinued metFORMIN ER (GLUCOPHAGE XR) 500 MG [id number]:Unc ontrolled type 2 diabetes mellitus with stage 3 chronic kidney disease, with long-term current use of insulin ([facility]) Take 1 Tab by mouth daily. 90 Tab 1 01/30/2018 8 Discontinued as of this encounter Active Problems Problem Noted Date Controlled substance agreement signed Body mass index (BMI) of 50.0 to 59.9 in adult ([facility]) 06/27/2017 Overview: Per Obesity protocol #1 - Per Obesity Taxonomy ICD-10 update of inactive term Uncontrolled type 2 diabetes mellitus with stage 3 chronic kidney disease, with long-term current use of insulin ([facility]) 05/24/2017 Gastroesophageal reflux disease with eso phagitis 03/04/2017 Restless legs syndrome 03/25/2016 Fibromyalgia 02/02/2016 Abnormality of gait 02/02/2016 Type 2 diabetes mellitus with hemoglobin A1c goal of 7.0%-8.0% ([facility]) 10/14/2014 Overview: ICD-10 update of inactive [...] of 40.0-44.9 in adult ([facility] ) 08/17/2010 05/24/2017 Obesity, morbid (more than 1 00 lbs over ideal weight or BMI > 40) ([facility]) 12/23/2009 06/30/2017 Overview: Per Obesity Taxonomy ICD-10 update of inactive term HTN, GOAL BELOW 130/80 10/22/2009 2 Overview: Per HTN Taxonomy. Pneumonia in aspergillosis ([facility]) 09/14/2009 02/15/2017 Venous thrombosis 09/14/2009 10/15/2010 Respiratory failure, acute ([facility]) 09/14/2009 02/15/2017 Spontaneous pneumothorax 09/14/2009 017 Dysuria 08/23/2009 02/15/2017 Type 2 diabetes mellitus wit h hemoglobin A1c goal of less than 7.0% ([facility]) 07/10/2009 10/14/2014 Overview: Modified per Diabetes protocol #14. ICD-10 update of inactive term Dyslipidemia, goal LDL below 160 08/16/2007 09/04/2009 Overview: Per Lipid Taxonomy. HTN, goal below 140/90 04/09/200310/22/201 0 Overview: [...] encounter Progress Notes * Frances Ellis, [facility] - 02/07/2018 9:38 AM EDT Formatting of this note may be different from the original. Medication Therapy Disease Management Diabetes History of Present Illness: Stephanie Camp is an 62 year old year old female who presents to the [facility] Management [facility] for an initial diabetes consult. Age of diabetes diagnosis: [id number] Nature of diabetes diagnosis: incidental lab finding Clinical presentation at time of diagnosis: asymptomatic Family history of diabetes: grandmother Previous medication use: actos, glimepiride, prandin History of hypoglycemia requiring assistance or hospitalization: no Microvascular complications: neuropathy, nephropathy Macrovascular complications: htn, dyslipidemia, Symptoms of hyperglycemia or hypoglycemia present today: frequent urination Diet: patient eats 2 meals per day Breakfast: 2 frozen eggo waffles + peanut butter + banana. Coffee with half and half AM snack: popcorn Lunch: usually just a snack - ex. Banana or orange, celery PM snack: orange Dinner: baked chicken, fish or hamburger with starch (instant potatoes) and veggie (peas, corn or green beans). HS Snack: milk + cookie or crackers with nortriptyline Beverages: milk, water, coffee, occasional soda, unsweetened iced tea Exercise: not much - limited by neuropathy/pain in feet from fibromyalgia. Tries to walk outside. Current Diabetes Medications: Lantus 66 units bid not taking due to lack of coverage Metformin 500 mg ER daily Self-Monitoring Blood Glucose Review: Patient currently tests blood glucose 1 time(s) daily Pre am Pre Lunch Pre pm HS 277 401 311 512 367 497 345 389 322 387 297 295 312 344 365 386 256 255 313 327 278 219 348 284 186 234 216 354 382 375 348 247 299 397 Average 312 512 384 497 Hi 397 512 401 497 Lo [address] [phone] #DIV/0! 497 Range 211 0 34 0 Hypoglycemia: 1. Do you know what the symptoms of hypoglycemia are? No 2. How often can you tell by your symptoms if your blood sugar is low? Never 3. In a typical week, how many [...] pulmonary embolus (PE) Z86.711 Statin intolerance Z78.[address] Z95.828 Type 2 diabetes mellitus with hemoglobin A1c goal of 7.0%-8.0% ([facility]) E11.9 Fibromyalgia M79.7 Abnormality of gait R26.9 Restless legs syndrome G25.81 Gastroesophageal reflux disease with esophagitis K21.0 Uncontrolled type 2 diabetes mellitus with stage 3 chronic kidney disease, with long-term current use of insulin ([facility]) E11.22, E11.65, N18.3, Z79.4 Body mass index (BMI) of 50.0 to 59.9 in adult ([facility]) Z68.43 Controlled substance agreement signed Z79.899 Review of patient's allergies indicates: Allergen Reactions Heparin Heparin Induced Thrombocytopenia Morphine And Related Hallucinations Tetanus Toxoid Other (Please comment) Passed out Current Outpatient Prescriptions Medication Sig Dispense Refill BD PEN NEEDLE SHORT U/F 31G X 8 MM use twice daily 100 Box Dosing Unit 11 clonazePAM (KLONOPIN) 0.5 MG Tablet Take 1 Tab by mouth 2 times a day. 180 Tab 1 cyclobenzaprine (FLEXERIL) 10 MG Tablet TAKE ONE TABLET BY MOUTH AT BEDTIME NEEDED FOR MUSCLE SPASM 30 Tab 2 docusate sodium (STOOL SOFTENER) 100 MG Capsule Take 100 mg by mouth 2 times a day as needed for Constipation. gabapentin (NEURONTIN) 300 MG Capsule one pill twice a day x 2 wks Then one pill three times a day 90 Cap 2 hydrochlorothiazide (HYDRODIURIL) 12.5 MG Capsule Take 1 Cap by mouth daily. 90 Cap 3 insulin glargine (INSULIN GLARGINE) 100 UNIT/ML SOPN Inject 66 Units under the skin 2 times a day. Titrate by 2 units until SBGM <150 2 Pre-filled Pen Syringe Dosing Unit 11 levothyroxine (LEVOXYL) 200 MCG Tablet Take 1 Tab by mouth daily. (at least 30 min prior to breakfast or other meds) 90 Tab 1 levothyroxine (LEVOXYL) 25 MCG Tablet TAKE ONE TABLET BY MOUTH IN THE MORNING AT LEAST 30 MINUTES PRIOR TO BREAKFAST OR OTHER MEDS 90 Tab 0 liraglutide (VICTOZA) 18 MG/3ML SOPN Inject 1.8 mg under the skin daily. If unable to tolerate, decrease dose back to 1.2 mg daily 2 Pre-filled Pen Syringe Dosing Unit 11 lisinopril (PRINIVIL) 10 MG Tablet TAKE ONE TABLET BY MOUTH ONE TIME DAILY 90 Tab 1 metFORMIN ER (GLUCOPHAGE XR) 500 MG TB24 Take 1 Tab by mouth daily. 90 Tab 1 metoprolol tartrate (LOPRESSOR) 25 MG Tablet Take 1 Tab by mouth 2 times a day. 180 Tab 1 Nortriptyline HCl (PAMELOR) 50 MG Capsule Take 1 Cap by mouth at bedtime. 90 Cap 1 oxygen GAS 4 LPM bled through CPAP 11 cwp during all periods of sleep. 1 Each 0 PRILOSEC 20 MG PO CPDR one tablet daily rOPINIRole (REQUIP) 1 MG Tablet TAKE ONE TABLET BY MOUTH AT BEDTIME 30 Tab 5 sertraline (ZOLOFT) 100 MG Tablet 1 1/2 tabs daily 135 Tab 1 Objective: The ASCVD Risk score (Freddy JOHNS Jr, et al., 2013) failed to calculate for the following reasons: Cannot find a previous HDL lab Cannot find a previous total cholesterol lab Estimated body mass index is 57.52 kg/(m^2) as calculated from the following: Height as of 07/14/17: 1.626 m (5' 4"). Weight as of 01/26/18: 152 kg (335 lb 2 oz). BP Readings from Last 3 Encounters: 01/26/18 126/80 12/29/17 126/76 08/29/17 126/76 HEMOGLOBIN, A1C(%) Nessa Dt/Tm Resulted Value Status 12/29/17 12:43P 12/29/17 11.6* FINAL (on metformin + lantus) 07/14/17 12:35P 07/14/17 9.3* FINAL 05/05/17 05/06/17 9.7* FINAL MICROALBUMIN RATIO(mg/g creat) Nessa Dt/Tm Resulted Value Status 03/03/17 12:37P 03/03/17 <15 FINAL 06/24/16 3:28P 06/24/16 <12 FINAL 05/15/15 3:43P 05/16/15 <13 FINAL BASIC METAB PANEL, BMP Nessa Dt/Tm Resulted Value Status BUN (mg/dL) 07/14/17 12:35P 07/14/17 22* F CREATININE (mg/dL) 07/14/17 12:35P 07/14/17 1.1* F SODIUM (mmol/L) 07/14/17 12:35P 07/14/17 138 F POTASSIUM (mmol/L) 07/14/17 12:35P 07/14/17 5.0 F CHLORIDE (mmol/L) 07/14/17 12:35P 07/14/17 96* F CO2 (mmol/L) 07/14/17 12:35P 07/14/17 26 F ANION GAP (mmol/L) 07/14/17 12:35P 07/14/17 16* F GLUCOSE (mg/dL) 07/14/17 12:35P 07/14/17 271* F CALCIUM (mg/dL) 07/14/17 12:35P 07/14/17 9.0 F E GLOM FILT RATE ( ) 07/14/17 12:35P 07/14/17 52.6* F ALT(U/L) Nessa Dt/Tm Resulted Value Status 12/29/17 12:43P 12/29/17 40* FINAL LDL (DIRECT MEASURE)(mg/dL) Nessa Dt/Tm Resulted Value Status 07/14/17 12:35P 07/14/17 109 FINAL Assessment & Plan: Glycemic control is unstable and not at goal. Patient agreeable to increase adjust medications as noted below. Patient to increase metformin as renal function has been stable and will tolerate increased metformin dose. Patient has not had prior adverse effects of the medication. Will also restart patient on Victoza as she switches to [facility] family insurance today. Patient will also likely benefit from SGLT2 infuture, but want to minimize number of changes at one time. Patient is agreeable to SMBG 2 time(s) daily. Provided patient with new OneTouch Mini meter and sent in new test strips/lancets to pharmacy Patient aware to contact clinic if any hypoglycemia before next visit. Reviewed rule of 15s. Diabetes Medications: Continue Lantus/basaglar - 66 units twice daily Restart Victoza 1.8 mg daily via weekly titration given Increase Metformin 500 mg ER to 2 tablets daily Diabetes Health Maintenance: due for eye exam Please bill NEW [facility] Family insurance - ID #: [id number] Return to clinic: 4 week(s) Frances Huerta [facility] Clinical Pharmacist Medication Therapy Disease Management 02/07/2018, 9:39 AM in this encounter Plan of Treatment Upcoming Encounters Date Type Specialty Care Team Description 03/07/2018 Pharmacy Pharmacy Sp, [facility] [address] [place] [facility] [address] [phone] 2018 Office Visit Sleep Disorders Celsa Tafoya CRNP [address] [place] [address] [phone] [facility] Nurse Sleep Disorders [address] [place] [address] [phone] 05/01/2018 Office Visit Family [facility] New Provider Kevin Chung [address] [place] [address] [phone] Health Maintenance Due Date Last Done Comments Yearly B-12 1955 DIABETES-EYE EXAM 02/24/2011 02/24/2010 (Do ne elsewhere), 12/18/2009, 02/18/2008 (Done elsewhere) BREAST CANCER SCREENING DISC USSION YEARLY AGES 40-75 05/09/2016 05/09/2015, 07/12/2014, 07/04/2014, Additional history exists PAP SMEAR-EVERY 3 YRS,AGES 21-65 05/11/2016 05/11/2013, 03/01/2008, 10/19/2006, Additional history exists CKD GFR USE SMARTSET 64668 06/30/201812/29, 12/26/2017, 07/14/2017, Additional history exists DIABETES-HGBA1C EVERY 6 MONTHS 06/30/2018 0 12/29/2017, 07/14/2017, 05/05/2017, Additional history exists DIABETES-LDL EVERY 12 MONTHS 07/14/2018, 10/28/2016, 06/24/2016, Additional history exists CKD HGB USE SMARTSET 98217 12/26/201812/26, 05/21/2017, 05/05/2017, Additional history exists DIABETES-URINE MICROALBUMIN EVERY 12 MONTHS 12/26/2018 12/26/2017, 05/21/2017, 05/05/2017, Additional history exists CKD PHOS USE SMARTSET [id number] 12/29/2018 04/0 01/2018, 08/26/2009, 08/25/2009, Additional history [...] current use of insulin (HCC) - Primary DM type 2, goal: symptom mgm t (HCC) Type II or unspecified type diabetes mellitus without mention of complication, not stated as uncontrolled in this encounter
--- OUTSIDE RECORDS SUMMARY | 2023-06-01 06:04 | External Medical Summary | Summary of Care ---
Author Name Unknown Organization [place] [address] Phone Care Team Providers Care Pipe Finishing Supervisor Name Role Phone Teddy De Oliveira MD Primary Care Provider [phone] Reason for Referral * Evaluate & Treat - Unlimited Visits (Within 10 days (routine)) Status Reason Specialty Diagnoses / Procedures Referred By Contact Referred To Contact Pending Review Specialty Services Required Ophthalmology Diagnoses DM type 2 nursing care encounter ([facility]) Teddy De Oliveira MD [address] [place] [address] Reason for Visit * Reason Comments FOLLOW UP one month Encounter Details Date Type Department Care Team Description 01/26/2018 Office Visit Family Practice [facility] [address] [address] Teddy De Oliveira MD [address] [address] [phone] Depression with anxiety*;Type 2 diabetes mellitus with hemoglobin A1c goal of 7.0%-8.0% ([facility]);DM type 2 nursing care encounter ([facility]);HTN, goal below 130/80;POSTSURGICAL HYPOTHYROID;Right knee pain, unspecified chronicity;Gastroesoph ageal reflux disease with esophagitis Allergies Active Allergy Reactions Severity Noted Date [...] 7.0%-8.0% ([facility]) Inject 66 Units under the skin 2 times a day. Titrate by 2 units until SBGM <150 2 Pre-filled Pen Syringe Dosing Unit 11 05/24/2017 Active Nortriptyline HCl 50 MG CapsuleIndications: Fibromyalgia TAKE ONE CAPSULE BY MOUTH AT BEDTIME 30 Cap 11 07/08/2017 Active clonazePAM (KLONOPIN) 0.5 MG TabletIndications:A nxiety state Take 1 Tab by mouth 2 times a day. 180 Tab 1 07/14/2017 Active metoprolol tartrate (LOPRESSOR) 25 MG TabletIndications:H TN, goal below 130/80 Take 1 Tab by mouth 2 times a day. 180 Tab 1 07/14/2017 Active metFORMIN ER (GLUCOPHAGE XR) 500 MG [id number]:Unc ontrolled type 2 diabetes mellitus with stage 3 chronic kidney disease, with long-term current use of insulin (HCC) Take 1 Tab by mouth daily. 30 Tab 11 07/14/2017 Active rOPINIRole (REQUIP) 1 MG TabletIndications:R estless legs syndrome TAKE ONE TABLET BY MOUTH AT BEDTIME 30 Tab 5 09/29/2017 Active lisinopril (PRINIVIL) 10 MG TabletIndications:H TN, goal below 140/80 TAKE ONE TABLET BY MOUTH ONE TIME DAILY 90 Tab 1 10/21/2017 Active liraglutide (VICTOZA) 18 MG/3ML SOPNIndications:DM type 2, goal: symptom mgmt ([facility]) Inject 1.8 mg under the skin daily. If unable to tolerate, decrease dose back to 1.2 mg daily 2 Pre-filled Pen Syringe Dosing Unit 11 11/02/2017 Active levothyroxine (LEVOXYL) 25 MCG TabletIndications:P ostsurgical [...] other meds) 90 Tab 1 01/26/2018 Active AUG BETAMETHASONE DIPROPIONATE (DIPROLENE AF) 0.05 % creamIndications:De rmatitis Apply to affected areas on legs twice daily as needed 50 g 5 09/28/2016 8 Discontinued Insulin Pen Needle (BD PEN NEEDLE SHORT U/F) 31G X 8 MMIndications:Type 2 diabetes mellitus with hemoglobin A1c goal of 7.0%-8.0% ([facility]) Use 3 times daily (for Lantus twice a day and Victoza daily) and as needed 100 Box Dosing Unit 11 03/03/2017 8 Discontinued levothyroxine (LEVOXYL) 200 MCG TabletIndications:P ostsurgical hypothyroidism Take 1 Tab by mouth daily. (at least 30 min prior to breakfast or other meds) 90 Tab 1 07/14/2017 8 Discontinued hydrochlorothiazide (HYDRODIURIL) 12.5 MG CapsuleIndications: HTN, goal below 130/80 Take 1 Cap by mouth daily. 90 Cap 3 12/29/2017 8 Discontinued as of this encounter Active Problems Problem Noted Date Controlled substance agreement signed Body mass index (BMI) of 50.0 to 59.9 in adult ([facility]) 06/27/2017 Overview: Per Obesity protocol #1 - Per Obesity Taxonomy ICD-10 update of inactive term Uncontrolled type 2 diabetes mellitus with stage 3 chronic kidney disease, with long-term current use of insulin ([facility]) 05/24/2017 Gastroesophageal reflux disease with eso phagitis 03/04/2017 Restless legs syndrome 03/25/2016 Fibromyalgia 02/02/2016 Abnormality of gait 02/02/2016 Type 2 diabetes mellitus with hemoglobin A1c goal of 7.0%-8.0% ([facility]) 10/14/2014 Overview: ICD-10 update of inactive term [...] mass index (BMI) of 40.0-44.9 in adult ([facility] ) 08/17/2010 05/24/2017 Obesity, morbid (more than 1 00 lbs over ideal weight or BMI > 40) ([facility]) 12/23/2009 06/30/2017 Overview: Per Obesity Taxonomy ICD-10 update of inactive term HTN, GOAL BELOW 130/80 10/22/2009 2 Overview: Per HTN Taxonomy. Pneumonia in aspergillosis ([facility]) 09/14/2009 02/15/2017 Venous thrombosis 09/14/2009 10/15/2010 Respiratory failure, acute ([facility]) 09/14/2009 02/15/2017 Spontaneous pneumothorax 09/14/2009 017 Dysuria 08/23/2009 02/15/2017 Type 2 diabetes mellitus wit h hemoglobin A1c goal of less than 7.0% ([facility]) 07/10/2009 10/14/2014 Overview: Modified per Diabetes protocol #14. ICD-10 update of inactive term Dyslipidemia, goal LDL below 160 08/16/2007 09/04/2009 Overview: Per Lipid Taxonomy. HTN, goal below 140/90 04/09/2003 0 Overview: Per HTN Taxonomy. DM type 2, not at goal ([facility]) 05/29/2002 Overview: Modified per Diabetes protocol #14. TENOSYNOVITIS FOOT-ANKLE 12/26/2001 017 Goiter 01/13/2000 06/28/2011 BACKACHE NOS 08/26/1999 05/24/2017 OBESITY, UNSPECIFIED 08/26/1999 12/23/2009 Overview: Per Obesity Taxonomy Perforation of intestine ([facility]) 0 02/15/2017 Overview: COLON Diverticulitis as of [...] Vital Sign Reading Time Taken Blood Pressure 126/80 01/26/2018 1:52 PM EDT Pulse 84 01/26/2018 1:52 PM EDT Temperature 36.7 C (98.1 F) 01/26/2018 1 :52 PM EDT Respiratory Rate 20 01/26/2018 1:52 PM EDT Oxygen Saturation - - Inhaled Oxygen Concentration - - Weight 152 kg (335 lb 2 oz) 01/26/2018 1:52 PM EDT Height - - Body Mass Index 57.52 01/26/2018 1:52 PM EDT in this encounter Instructions * Patient Instructions - Jennifer Cesar LPN - 01/26/2018 1:51 PM EDT Dear Stephanie Camp, The care [...] Care Our Office Address and Fax Number: Teddy De Oliveira MD [address] [address] in this encounter Progress Notes * Teddy De Oliveira MD - 01/29/2018 5:15 PM EDT Subjective: Patient here for recheck She had has seen some improvement emotionally with higher dose of sertraline-now on 150 mg daily Reviewed her most recent blood tests She still does very high A1c. She is followed by [facility] pharmacy. She cannot afford Victoza Hopefully she will have another option instead of higher doses insulin. Reviewed her medications Still using oxygen at night Blood pressure doing well Weight is about the same She has considered gastric bypass before. Does not feel it is an option for her Acid reflux under reasonable control Still has significant right knee pain despite right knee replacement-followed by orthopedics Objective: Carotids 2+ bilaterally Lungs clear Cardiac exam with regular rate rhythm Extremities with 1+ pitting edema Assessment: F41.8 Depression with anxiety (primary encounter diagnosis) Continue sertraline 150 mg daily Because of chronic clonazepam, we did med use agreement. Discussed and patient signed this E11.9 Type 2 diabetes mellitus with hemoglobin a1c goal of 7.0%-8.0% ([facility]) E11.9 Dm type 2 nursing care encounter ([facility]) Plan: Ophthalmology(diabetes-extended)referral op I10 Htn, goal below 130/80 Plan: Hydrochlorothiazide 12.5 mg po caps Sig:Take 1 cap by mouth daily. E89.0 Postsurgical hypothyroid Plan: Levothyroxine sodium 200 mcg or tabs Sig:Take 1 tab by mouth daily. (at least 30 min prior to breakfast or other meds) M25.561 Right knee pain, unspecified chronicity Follow with Orthopedics K21.0 Gastroesophageal reflux disease with esophagitis Stable on medication Follow up: Return in about 3 months (around 04/28/2018). * Jennifer Cesar LPN - 01/26/2018 1:51 PM EDT The importance of having a yearly diabetic eye exam has been discussed with patient. Order and Referral placed along with patient instructions. Provider made aware. Jennifer Cesar LPN in this encounter Plan of Treatment Upcoming Encounters Date Type Specialty Care Team Description 01/31/2018 Pharmacy Pharmacy Sp, [facility] [address] [place] [address] [phone] 2018 Office Visit Sleep Disorders Celsa Tafoya CRNP [address] [address] [phone] Marquez, Nurse Sleep Disorders [address] [address] [phone] 05/01/2018 Office Visit Family [facility] New Provider Kevin Chung [address] [address] [phone] Scheduled Referrals Name Priority Associated Diagnoses Order S chedule OPHTHALMOLOGY(DIABE EVE-EXTENDED)REFERR AL OP Within 10 days (routine) DM type 2 nursing care encounter ([facility]) Ordered: 01/26/2018 Health Maintenance Due Date Last Done Comments Yearly B-12 1955 DIABETES-EYE EXAM 02/24/2011 02/24/2010 (Do ne elsewhere), 12/18/2009, 02/18/2008 (Done elsewhere) BREAST CANCER SCREENING DISC USSION YEARLY AGES 40-75 05/09/2016 05/09/2015, 07/12/2014, 07/04/2014, Additional history exists PAP SMEAR-EVERY 3 YRS,AGES 21-65 05/11/2016 05/11/2013, 03/01/2008, 10/19/2006, Additional history exists CKD GFR USE SMARTSET 02255 06/30/201812/29, 12/26/2017, 07/14/2017, Additional history exists DIABETES-HGBA1C EVERY 6 MONTHS 06/30/2018 0 12/29/2017, 07/14/2017, 05/05/2017, Additional history exists DIABETES-LDL EVERY 12 MONTHS 07/14/2018, 10/28/2016, 06/24/2016, Additional history exists CKD HGB USE SMARTSET 95731 12/26/201812/26, 05/21/2017, 05/05/2017, Additional history exists DIABETES-URINE MICROALBUMIN EVERY 12 MONTHS 12/26/2018 12/26/2017, 05/21/2017, 05/05/2017, Additional history exists CKD PHOS USE SMARTSET 60210 12/29/2018 04/0 01/2018, 08/26/2009, 08/25/2009, Additional history exists DIABETES-FOOT EXAM 12/29/2018 12/29/2017, 0 10/21/2016, 12/11/2015, Additional history exists PNEUMOCOCCAL 19-64 MEDIUM RISK Completed 08/22/2009 , 06/15/2006 Influenza Vaccine (FLU shot) Completed , 06/24/2016, 07/24/2015, Additional history exists as of this encounter Implants Not on fileas of this encounter Visit Diagnoses Diagnosis Depression with anxiety - Pr imary Dysthymic disorder Type 2 diabetes mellitus wit h hemoglobin A1c goal of 7.0%-8.0% ([facility]) DM type 2 nursing care encou nter ([facility]) Type II or unspecified type diabetes mellitus without mention of complication, not stated as uncontrolled HTN, goal below 130/80 Unspecified essential hypertension POSTSURGICAL HYPOTHYROID Postsurgical hypothyroidism Right knee pain, unspecified chronicity Gastroesophageal reflux dise ase with esophagitis in this encounter
--- OUTSIDE RECORDS SUMMARY | 2023-06-01 06:04 | External Medical Summary | Summary of Care ---
Author Name Unknown Organization [place] [address] Phone Care Team Providers Care Manager Business Name Role Phone Teddy De Oliveira MD Primary Care Provider [phone] Reason for Visit * Reason Comments MEDICATION REFILL Encounter Details Date Type Department Care Team Description 01/30/2018 Refill Family Practice [facility] [address] [facility] [place] [address] Teddy De Oliveira MD [address] [place] [address] [phone] Uncontrolled type 2 diabetes mellitus with stage 3 chronic kidney disease, with long-term current use of insulin ([facility]);Fibromyalgia Allergies Active Allergy Reactions Severity Noted Date [...] other meds) 90 Tab 1 01/26/2018 Active metFORMIN ER (GLUCOPHAGE XR) 500 MG [id number]:Unc ontrolled type 2 diabetes mellitus with stage 3 chronic kidney disease, with long-term current use of insulin ([facility]) Take 1 Tab by mouth daily. 90 Tab 1 01/30/2018 Active Nortriptyline HCl (PAMELOR) 50 MG CapsuleIndications: Fibromyalgia Take 1 Cap by mouth at bedtime. 90 Cap 1 01/30/2018 Active Nortriptyline HCl 50 MG CapsuleIndications: Fibromyalgia TAKE ONE CAPSULE BY MOUTH AT BEDTIME 30 Cap 11 07/08/2017 8 Discontinued metFORMIN ER (GLUCOPHAGE XR) 500 MG [id number]:Unc ontrolled type 2 diabetes mellitus with stage 3 chronic kidney disease, with long-term current use of insulin ([facility]) Take 1 Tab by mouth daily. 30 Tab 11 07/14/2017 8 Discontinued as of this encounter [...] Notes * Telephone Encounter - Rebecca Starr [facility] - 01/30/2018 10:34 AM EDT Signed Prescriptions: Disp RefillsmetFORMIN ER (GLUCOPHAGE XR) 500 MG TB24 90 Tab 1Sig: Take 1 Tab by mouth daily.Authorizing Provider: TEDDY DE OLIVEIRA Ordering User: REBECCA STARRortriptyline HCl (PAMELOR) 50 MG Capsule 90 Cap 1Sig: Take 1 Cap by mouth at bedtime.Authorizing Provider: TEDDY DE OLIVEIRA Ordering User: REBECCA STARR * Telephone Encounter - Rebecca Starr [facility] - 01/30/2018 10:34 AM EDT Signed Prescriptions: Disp Refills metFORMIN ER (GLUCOPHAGE XR) 500 MG TB24 90 Tab 1 Sig: Take 1 Tab by mouth daily. Authorizing Provider: TEDDY DE OLIVEIRA Ordering User: REBECCA STARR Nortriptyline HCl (PAMELOR) 50 MG Capsule 90 Cap 1 Sig: Take 1 Cap by mouth at bedtime. Authorizing Provider: TEDDY DE OLIVEIRA Ordering User: REBECCA STARR * Telephone Encounter - Rebecca Starr, [facility] - 01/30/2018 10:34 AM EDT Per rx insurance, a new prescription is required every 6 months. Reissuing balance of refills on current script. Thanks, Antione Sepulveda.Ph. Refill Pharmacist Refill Call Center [phone] 01/30/2018,10:34 AM * Telephone Encounter - Flaca Thayer [facility] - 01/30/2018 8:44 AM EDT Formatting of this note may be different from the original. Pt is out of both medications; insurance requires new Rxs as they . Pending Prescriptions: Disp Refills metFORMIN ER (GLUCOPHAGE XR) 500 MG TB24 90 Tab 1 Sig: Take 1 Tab by mouth daily. Nortriptyline HCl (PAMELOR) 50 MG Capsule 90 Cap 1 Sig: Take 1 Cap by mouth at bedtime. Last Office Visit: 01/26/2018 Next Office Visit: 05/01/2018 Scheduled Provider(s): Kevin Whiteside If no future appointments scheduled, and last appointment is greater than a year ago, please schedule patient for a follow-up appointment Last date the medication was ordered: 07/14/2017, 07/08/2017 Patient Phone Numbers Labs: Lab Results Component Value Date/Time CREAT 1.1 (H) 12/29/2017 12:43 PM POTASSIUM 4.9 12/29/2017 12:43 PM TSH 0.60 03/03/2017 12:38 PM LDLCALC 103 10/10/2014 02:32 PM LDLDIRECT 109 07/14/2017 12:35 PM ALT 40 (H) 12/29/2017 12:43 PM HGBA1C 11.6 (H) 12/29/2017 12:43 PM in this encounter Plan of Treatment Upcoming Encounters Date Type Specialty Care Team Description 01/31/2018 Pharmacy [facility] [address] [facility] [place] [address] [phone] 2018 Office Visit Sleep Disorders Celsa Tafoya CRNP [address] [place] [address] [phone] Marquez, Nurse Sleep Disorders [address] [place] [address] [phone] 05/01/2018 Office Visit Family Practice New Provider Fam Kevin Mcdonald [address] [place] [address] [phone] Health Maintenance Due Date Last Done Comments Yearly B-12 1955 DIABETES-EYE EXAM 02/24/2011 02/24/2010 (Do ne elsewhere), 12/18/2009, 02/18/2008 (Done elsewhere) BREAST CANCER SCREENING DISC USSION YEARLY AGES 40-75 05/09/2016 05/09/2015, 07/12/2014, 07/04/2014, Additional history exists PAP SMEAR-EVERY 3 YRS,AGES 21-65 05/11/2016 05/11/2013, 03/01/2008, 10/19/2006, Additional history exists CKD GFR USE SMARTSET 52760 06/30/201812/29, 12/26/2017, 07/14/2017, Additional history exists DIABETES-HGBA1C EVERY 6 MONTHS 06/30/2018 0 12/29/2017, 07/14/2017, 05/05/2017, Additional history exists DIABETES-LDL EVERY 12 MONTHS 07/14/2018, 10/28/2016, 06/24/2016, Additional history exists CKD HGB USE SMARTSET 44187 12/26/201812/26, 05/21/2017, 05/05/2017, Additional history exists DIABETES-URINE MICROALBUMIN EVERY 12 MONTHS 12/26/2018 12/26/2017, 05/21/2017, 05/05/2017, Additional history exists CKD PHOS USE SMARTSET 37020 12/29/2018 04/0 01/2018, 08/26/2009, 08/25/2009, Additional history [...] insulin (HCC) Fibromyalgia Mylagia and myositis, unspecified in this encounter
--- OUTSIDE RECORDS SUMMARY | 2023-06-01 06:04 | External Medical Summary | Summary of Care ---
Author Name Unknown Organization [place] [address] Phone Care Team Providers Care Shared Services And Outsourcing Manager Name Role Phone Sanjiv Isabel DO Primary Care Provider Reason for Visit * Reason Comments URINARY TRACT INFECTION SYMPTOMS pt c/o itching, burning, discharge, cramping x 10 days Sore Foot pt c/o sore R foot t hat is red in color and pt states her foot is numb on bottom. Encounter Details Date Type Department Care Team Description 03/24/2018 Office Visit Family [facility] [address] [place] [address] Sanjiv Isabel DO [address] [place] [address] [phone] Acute cystitis without hematuria*;Vaginal candidiasis;Type 2 diabetes mellitus with hemoglobin A1c goal of 7.0%-8.0% ([facility]);HTN, goal below 130/80;Morbid obesity due to excess calories ([facility]);Other residential (current) drug therapy Allergies Active Allergy Reactions Severity Noted Date [...] 1 07/14/2017 Active lisinopril (PRINIVIL) 10 MG TabletIndications:H TN, [...] Active metFORMIN ER (GLUCOPHAGE XR) 500 MG [id number]:Unc ontrolled type 2 diabetes mellitus with stage 3 chronic kidney disease, with long-term current use of insulin ([facility]) Take 4 Tabs by mouth daily. 360 Tab 1 03/07/2018 Active rOPINIRole (REQUIP) 1 MG TabletIndications:R estless legs syndrome TAKE ONE TABLET BY MOUTH AT BEDTIME 30 Tab 4 03/09/2018 Active ciprofloxacin (CIPRO) 250 MG TabletIndications:A cute cystitis without hematuria Take 1 Tab by mouth every 12 hours. 6 Tab 0 03/24/2018 Active ciprofloxacin (CIPRO) 250 MG Tablet Take 1 Tab by mouth every 12 hours for 3 days. 6 Tab 0 03/24/2018 8 Discontinued fluconazole (DIFLUCAN) 150 MG TabletIndications:V aginal candidiasis Take 1 Tab by mouth once for 1 dose. 1 Tab 0 03/24/2018 8 as of this encounter Active Problems Problem [...] 10/14/2014 Overview: ICD-10 update of inactive term Inman filter in place 08/19/2014 History of pulmonary [...] Vital Sign Reading Time Taken Blood Pressure 130/78 03/24/2018 3:07 PM EDT Pulse 102 03/24/2018 3:07 PM EDT Temperature 36.9 C (98.4 F) 03/24/2018 3 :07 PM EDT Respiratory Rate 18 03/24/2018 3:07 PM EDT Oxygen Saturation - - Inhaled Oxygen Concentration - - Weight 150.7 kg (332 lb 2 oz) 8 3:07 PM EDT Height 162.6 cm (5' 4") 03/24/2018 3:07 PM EDT Body Mass Index 57.01 03/24/2018 3:07 PM EDT in this encounter Instructions * Patient Instructions - Sanjiv Isabel DO - 03/24/2018 3:22 PM EDT BMI (Body Mass Index) is the number obtained by dividing a person's weight in kilograms by his or her height in meters squared. BMI is used in determining obesity. BMI is not used to determine a person's actual percentage of body fat, but it is a good tool to lpta weight in terms of what is healthy and unhealthy. It is used to identify adults at increased risk for developing weight related medical problems. Estimated body mass index is 57.01 kg/(m^2) as calculated from the following: Height as of this encounter: 1.626 m (5' 4"). Weight as of this encounter: 150.7 kg (332 lb 2 oz). Severe Obesity - BMI 40 kg/m2 [...] message program is also available. Go to [email or web address] and seethe message under '[employer] News' for more information and enrollment. Patient [...] permitted. Keep Honest, Accurate Food logs: * [email or web address] * [email or web address] * If you bite it - write [...] using a pedometer * Make it fun! in this encounter Progress Notes * Sanjiv Isabel DO - 04/06/2018 11:10 PM EDT Formatting of this note may be different from the original. Chief Complaint Patient presents with URINARY TRACT INFECTION SYMPTOMS pt c/o itching, burning, discharge, cramping x 10 days Sore Foot pt c/o sore R foot that is red in color and pt states her foot is numb on bottom. HPI: Patient complains of urinary frequency, dysuria and and urgency times 10 days. Patient also lower abdominal cramping, vaginal itching whitish vaginal discharge. Patient has history of diabetes type 2. Last hemoglobin A1c level 11.6 on 12/29/2017. Patient had been previously noncompliant with medication due to cost. Patient now following with [facility] pharmacy for compliance with medications and is doing better with her blood glucose levels. Patient denies polydipsia or blurred vision. Patient hashistory of hypertension. Patient denies chest pain, palpitations, shortness of breath or edema. Patient also complains of foot soreness and redness. Patient denies ulceration. Review of systems otherwise negative Past Medical History: Medication list, PMH, Family history, social history, and problem list have been reviewed and updated in the Electronic Medical Record as noted below. 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 6 Tab 0 rOPINIRole (REQUIP) 1 MG Tablet TAKE ONE TABLET BY MOUTH AT BEDTIME 30 Tab 4 empagliflozin (JARDIANCE) 25 MG TABS Take 1 Tab by mouth daily. 30 Tab 5 metFORMIN ER (GLUCOPHAGE XR) 500 MG TB24 Take 4 Tabs by mouth daily. 360 Tab 1 Glucose Blood (Three MelonsUCH ULTRA BLUE) STRP Check sugars twice daily [...] twice daily 100 Box Dosing Unit 11 gabapentin (NEURONTIN) 300 MG Capsule one pill twice a day x 2 wks Then one pill three times a day 90 Cap 2 levothyroxine (LEVOXYL) 25 MCG Tablet TAKE ONE TABLET BY MOUTH IN THE MORNING AT LEAST 30 MINUTES PRIOR TO BREAKFAST OR OTHER MEDS 90 Tab 0 sertraline (ZOLOFT) 100 MG Tablet 1 1/2 tabs daily 135 Tab 1 lisinopril (PRINIVIL) 10 MG Tablet TAKE ONE TABLET BY MOUTH ONE TIME DAILY 90 Tab 1 clonazePAM (KLONOPIN) 0.5 MG Tablet Take 1 Tab by mouth 2 times a day. 180 Tab 1 metoprolol tartrate (LOPRESSOR) 25 MG [...] times a day as needed for Constipation. cyclobenzaprine (FLEXERIL) 10 MG Tablet TAKE ONE TABLET BY MOUTH AT BEDTIME NEEDED FOR MUSCLE SPASM 30 Tab 2 oxygen GAS 4 LPM bled through CPAP 11 cwp during all periods of sleep. 1 Each 0 PRILOSEC 20 MG PO CPDR one tablet daily Past Medical History: Diagnosis Date Allergic rhinitis due to other allergen Backache Diverticulosis of colon 01/28/06 DM type 2, not at goal ([facility]) Goiter Frank filter in place [...] DIAGNOSTIC (RECTUM) 02/18/2016 normal, repeat 10 yrs/[facility] COLONOSCOPY, GI REFERRAL OP 01/28/06 diverticulosis--repeat 10 years INCISION OF WINDPIPE, PLANNED 06/03/2011 TRACHEOSTOMY PLANNED performed by DANNY HOLDER at [facility] KNEE ARTHROSCOPY/DEBRIDEMENT 07/[address] PERMANENT GASTROSTOMY TUBE 09/06/09 GASTROSTOMY WITH CONSTUCTION GASTRIC TUBE performed by AMADOU NUNEZ at [facility] REMOVAL OF THYROID GLAND 06/15/2011 THYROIDECTOMY INCLUDING SUBSTERNAL THYROID CERVICAL APPROACH performed by DANNY HOLDER at OR [facility] REMOVE GALLBLADDER 09/06/09 CHOLECYSTECTOMY performed by AMADOU NUNEZ at OR [facility] REPAIR RECURRENT INCISIONAL HERNIA 1998 REVISION OF COLOSTOMY, SIMPLE 1997 SUTURE, LARGE INTESTINE W/COLOSTOMY 1996 perforation R colon with colostomy VENA CAVA FILTER/LIGATION/CLIP 08/19/09 Inman filter placement through the right femoral 08/19/[address] Lerma at [facility] Review of patient's allergies indicates: Allergen [...] - in 70's Family Status Relation Status Father Mother Brother Grandmother (Paternal) Grandfather (Paternal) Social History Substance Use Topics Smoking status: Former Smoker Packs/day: 1.00 Years: 15.00 Quit date: 08/26/1997 Smokeless tobacco: Never Used Alcohol use Yes Comment: rare Review of Systems: No nausea, vomiting or diarrhea. No chest pain or shortness of breath, No fatigue. No fevers, chillor night sweats. All other ROS examined in detail and are negative except as documented in HPI. All other systems reviewed and are negative. Objective: BP 130/78 | Pulse 102 | Temp (Src) 98.4 (Tympanic) | Resp 18 | Ht 5' 4" (1.626m) | Wt 332 lbs 2 oz (150.651kg) | BMI 57.01 kg/m | BSA 2.61 m | LMP 03/11/2003 Physical Exam: General: alert, healthy, no distress, well nourished and well developed Head: Normocephalic, No masses, lesions, tenderness or [...] w/o bruits, posterior tibial=2/4 Abdomen: abdomen soft, nondistended, no masses, no hepatosplenomegaly, no rigidity, rebound or guarding, suprapubic tenderness, negative Sonny sign, bowel sounds x4 normal Back: No CVA tenderness, no tenderness to percussion or palpation Extremities: no edema, no clubbing, no cyanosis Neuro Exam: alert & oriented x 3 with fluent speech, no focal motor/sensory deficits, gait normal, reflexes normal and symmetric Skin: skin color, texture, turgor are normal, no rashes or significant lesions ulcerations ASSESSMENT/PLAN: N30.00 Acute cystitis without hematuria (primary encounter diagnosis) Plan: Increase fluids Site dip,dipstick only(83035) Culture quant urine Ciprofloxacin hcl 250 mg po tabs Sig:Take 1 tab by mouth every 12 hours. B37.3 Vaginal candidiasis Plan: Refer to dinkey operator slag if symptoms worsen or persist Fluconazole 150 mg po tabs Sig:Take 1 tab by mouth once for 1 dose. 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 in this encounter Nursing Notes * Charissa Scanlon LPN - 03/24/2018 3:12 PM EDT Formatting of this note may be different from the original. The patient has been properly identified by confirmation of name and date of . Chief Complaint Patient presents with URINARY TRACT INFECTION SYMPTOMS pt c/o itching, burning, discharge, cramping x 10 days Sore Foot pt c/o sore R foot that is red in color and pt states her foot is numb on bottom. in this encounter Plan of Treatment Upcoming Encounters Date Type Specialty Care Team Description 04/25/2018 [facility]acy [facility] [address] [facility] [address] [phone] 05/01/2018 Office Visit Family Medicine Kevin Whiteside, [address] [place] [address] [phone] 05/02/2018 Office Visit Sleep Disorders Celsa Tafoya CRNP [address] [address] [phone] Scheduled Tests Name Priority Associated Diagnoses Order S chedule VITAMIN B12 Routine Other residential (current) drug therapy Expected: 03/24/2018, Expires: 03/24/2019 Health Maintenance Due Date Last Done Comments [...] Additional history exists CKD GFR USE SMARTSET 77346 06/30/201812/29, 12/26/2017, 07/14/2017, Additional history exists DIABETES-HGBA1C EVERY 6 MONTHS 06/30/2018 0 12/29/2017, 07/14/2017, 05/05/2017, Additional history exists DIABETES-LDL EVERY 12 MONTHS 07/14/2018, 10/28/2016, 06/24/2016, Additional history exists CKD HGB USE SMARTSET 27616 12/26/201812/26, 05/21/2017, 05/05/2017, Additional history exists DIABETES-URINE MICROALBUMIN EVERY 12 MONTHS 12/26/2018 12/26/2017, 05/21/2017, 05/05/2017, Additional history exists CKD PHOS USE SMARTSET 92452 12/29/2018 04/0 01/2018, 08/26/2009, 08/25/2009, Additional history exists DIABETES-FOOT EXAM 12/29/2018 12/29/2017, 0 10/21/2016, 12/11/2015, Additional history exists PNEUMOCOCCAL 19-64 MEDIUM RISK Completed 08/22/2009 , 06/15/2006 as of this encounter Implants Not on fileas of this encounter Results * CULTURE QUANT URINE (03/24/2018 5:14 PM) Component Value Ref Range SPECIMEN DESCRIPTION CLEAN CATCH URINE CULTURE >100,000 COLONIES/ML CITROBACTER FREUNDII This bacterial species is known to produce a chromosomal AmpC inducible beta lactamase. Penicillin or cephalosporin use, with the exception of cefepime, may result in resistance. (A) CULTURE LESS THAN 10,000 COLONIES/ML MIX ED NORMAL MELISSA REPORT STATUS 03/27/2018 FINAL ORGANISM CITROBACTER FREUNDII(A) Specimen Performing Laborator y [facility] [address] [place] [address] Organism Antibiotic Method Susceptibility Citrobacter freundii CIPROFLOXACIN SUSCEPTIBLE : SENSITIVE Citrobacter freundii CEFTRIAXONE SUSCEPTIBLE : SENSITIVE Citrobacter freundii CEFEPIME SUSCEPTIBLE : SENSITIVE Citrobacter freundii NITROFURANTOIN SUSCEPTIBLE : SENSITIVE Citrobacter freundii GENTAMICIN SUSCEPTIBLE : SENSITIVE Citrobacter freundii TRIMETH-SULFAMETHOXAZOLE SUSCEPTIBLE : SENSITIVE Comment: >100,000 COLONIES/ML CITROBACTER FREUNDII This bacterial species is known to produce a chromosomal AmpC inducible beta lactamase. Penicillin or cephalosporin use, with the exception of cefepime, may result in resistance. * SITE DIP,DIPSTICK ONLY(36414) (03/24/2018) Component Value Ref Range COLOR, UA yellow yellow - clive CLARITY, UA clear clear - clear GLUCOSE, UA pos neg - neg BILIRUBIN, UA neg neg - neg KETONE, UA neg neg - neg SPECIFIC GRAVITY 1.010 1.003 - 1.030 BLOOD, UA traceComment:non hemo neg - neg PH, UA 6.0 5.0 - 7.5 PROTEIN, UA neg neg - neg UROBILINOGEN, UA normal normal - normal NITRITE, UA neg neg - neg ESTERASE, UA moderate neg - neg Specimen Performing Laborator y Urine in this encounter Visit Diagnoses Diagnosis Acute cystitis without hemat uria - Primary Acute cystitis Vaginal candidiasis Candidiasis of vulva and vagina Type 2 diabetes mellitus wit h hemoglobin A1c goal of 7.0%-8.0% ([facility]) HTN, goal below 130/80 Unspecified essential hypertension Morbid obesity due to excess calories ([facility]) Other terminal press operator (current) dr ayala therapy in this encounter
--- OUTSIDE RECORDS SUMMARY | 2023-06-01 06:04 | External Medical Summary | Summary of Care ---
Author Name Unknown Organization [place] [address] Phone Care Team Providers Care Assistant Front End Manager Name Role Phone Sanjiv Tolliver DO Primary Care Provider [phone] Reason for Visit * Reason Comments eRx-Medication Refill Encounter Details Date Type Department Care Team Description 04/09/2018 Refill Family Practice [facility] [address] [place] [address] Teddy De Oliveira MD [address] [facility] [place] [address] [phone] POSTSURGICAL HYPOTHYROID Allergies Active Allergy Reactions Severity [...] goal of 7.0%-8.0% ([facility]) Inject 66 Units under the [...] Active metFORMIN ER (GLUCOPHAGE XR) 500 MG [id number]:Uncon trolled type 2 diabetes mellitus with stage 3 chronic kidney disease, with long-term current use of insulin ([facility]) Take 4 Tabs by mouth daily. 360 Tab 1 03/07/2018 Active rOPINIRole (REQUIP) 1 MG TabletIndications:Res tless legs syndrome TAKE ONE TABLET BY MOUTH AT BEDTIME 30 Tab 4 03/09/2018 Active ciprofloxacin (CIPRO) 250 MG TabletIndications:Acu te cystitis without hematuria Take 1 Tab by mouth every 12 hours. 6 Tab 0 03/24/2018 Active as of this encounter Active Problems [...] 10/14/2014 Overview: ICD-10 update of inactive term Nucla filter in place 08/19/2014 History of pulmonary [...] encounter Miscellaneous Notes * Telephone Encounter - Flaca Morgan LPN - 04/10/2018 4:27 PM EDT Refused Prescriptions: Disp Refillslevothyroxine (LEVOXYL) 25 MCG Tablet [Pha*90 Tab 0Sig: TAKE ONE TABLET BY MOUTH IN THE MORNING AT LEAST 30MINUTES PRIOR TO BREAKFAST OR OTHER MEDSRefused By: FLACA MORGAN LReason for Refusal: Duplicate Request * Telephone Encounter - Flaca Morgan LPN - 04/10/2018 4:26 PM EDT Pending Prescriptions: Disp Refills levothyroxine (LEVOXYL) 25 MCG Tablet [Ph*90 Tab 3 Sig: TAKE ONE TABLET BY MOUTH IN THE MORNING AT LEAST 30 MINUTES PRIOR TO BREAKFAST OR OTHER MEDS Last Office Visit: 03/24/2018 Next Office Visit: 05/01/2018 Scheduled Provider(s): Kait Espinoza in this encounter Plan of Treatment Upcoming Encounters Date Type Specialty Care Team Description 04/25/2018 [facility] [address] [facility] [address] [phone] 05/01/2018 Office Visit Family Medicine Kevin Whiteside, [address] [address] [address] [phone] 05/02/2018 Office Visit Sleep Disorders Celsa Tafoya CRNP [address] [address] [phone] Health Maintenance Due Date Last Done Comments [...] Additional history exists CKD GFR USE SMARTSET 43611 06/30/201812/29, 12/26/2017, 07/14/2017, Additional history exists DIABETES-HGBA1C EVERY 6 MONTHS 06/30/2018 0 12/29/2017, 07/14/2017, 05/05/2017, Additional history exists DIABETES-LDL EVERY 12 MONTHS 07/14/2018, 10/28/2016, 06/24/2016, Additional history exists CKD HGB USE SMARTSET 62903 12/26/201812/26, 05/21/2017, 05/05/2017, Additional history exists DIABETES-URINE MICROALBUMIN EVERY 12 MONTHS 12/26/2018 12/26/2017, 05/21/2017, 05/05/2017, Additional history exists CKD PHOS USE SMARTSET 86614 12/29/2018 04/0 01/2018, 08/26/2009, 08/25/2009, Additional history exists DIABETES-FOOT EXAM 12/29/2018 12/29/2017, 0 10/21/2016, 12/11/2015, Additional history exists PNEUMOCOCCAL 19-64 MEDIUM RISK Completed 08/22/2009 , 06/15/2006 as of this encounter Implants Not on fileas of this encounter Visit Diagnoses Diagnosis POSTSURGICAL HYPOTHYROID Postsurgical hypothyroidism in this encounter
--- OUTSIDE RECORDS SUMMARY | 2023-06-01 06:04 | External Medical Summary | Summary of Care ---
Author Name Unknown [place] [address] Phone Care Team Providers Care Merchant Patroller Name Role Phone Teddy De Oliveira MD Primary Care Provider Reason for Referral * Evaluate & Treat - Unlimited Visits (Within 10 days (routine)) Status Reason Specialty Diagnoses / Procedures Referred By Contact Referred To Contact Pending Review Specialty Services Required Ophthalmology Diagnoses DM type 2 nursing care encounter ([facility]) Teddy De Oliveira MD [address] [place] [address] Reason for Visit * Reason Comments FOLLOW UP one month Encounter Details Date Type Department Care Team Description 01/26/2018 Office Visit Family Practice [facility] [address] [address] Teddy De Oliveira MD [address] [address] [phone] Depression with anxiety*;Type 2 diabetes mellitus with hemoglobin A1c goal of 7.0%-8.0% ([facility]);DM type 2 nursing care encounter ([facility]);HTN, goal below 130/80;POSTSURGICAL HYPOTHYROID;Right knee pain, unspecified [...] goal of 7.0%-8.0% ([facility]) Inject 66 Units under the skin 2 [...] Active metFORMIN ER (GLUCOPHAGE XR) 500 MG [id number]:Unc ontrolled type 2 diabetes mellitus with stage [...] A1c goal of 7.0%-8.0% ([facility]) Use 3 times daily (for Lantus twice [...] to 59.9 in adult ([facility]) 06/27/2017 Overview: Per Obesity protocol #1 - Per Obesity Taxonomy ICD-10 update of inactive term Uncontrolled type 2 diabetes mellitus with stage 3 chronic kidney disease, with long-term current use of insulin ([facility]) 05/24/2017 Gastroesophageal reflux disease with eso phagitis 03/04/2017 Restless legs syndrome 03/25/2016 Fibromyalgia 02/02/2016 Abnormality of gait 02/02/2016 Type 2 diabetes mellitus with hemoglobin A1c goal of 7.0%-8.0% ([facility]) 10/14/2014 Overview: ICD-10 update of inactive term [...] mass index (BMI) of 40.0-44.9 in adult ([facility] ) 08/17/2010 05/24/2017 Obesity, morbid (more than 1 00 lbs over ideal weight or BMI > 40) ([facility]) 12/23/2009 06/30/2017 Overview: Per Obesity Taxonomy ICD-10 update of inactive term HTN, GOAL BELOW 130/80 10/22/2009 2 Overview: Per HTN Taxonomy. Pneumonia in aspergillosis ([facility]) 09/14/2009 02/15/2017 Venous thrombosis 09/14/2009 10/15/2010 Respiratory failure, acute ([facility]) 09/14/2009 02/15/2017 Spontaneous pneumothorax 09/14/2009 017 Dysuria 08/23/2009 02/15/2017 Type 2 diabetes mellitus wit h hemoglobin A1c goal of less than 7.0% ([facility]) 07/10/2009 10/14/2014 Overview: Modified per Diabetes protocol #14. ICD-10 update of inactive term Dyslipidemia, goal LDL below 160 08/16/2007 09/04/2009 Overview: Per Lipid Taxonomy. HTN, goal below 140/90 04/09/2003 0 Overview: Per HTN Taxonomy. DM type 2, not at goal ([facility]) 05/29/2002 Overview: Modified per Diabetes protocol #14. TENOSYNOVITIS FOOT-ANKLE 12/26/2001 017 Goiter 01/13/2000 06/28/2011 BACKACHE NOS 08/26/1999 05/24/2017 OBESITY, UNSPECIFIED 08/26/1999 12/23/2009 Overview: Per Obesity Taxonomy Perforation of intestine ([facility]) 0 02/15/2017 Overview: COLON Diverticulitis as of [...] and Fax Number: Teddy De Oliveira MD [address] [address] in this encounter Progress Notes * Teddy De Oliveira MD - 01/29/2018 5:15 PM EDT Subjective: Patient here for recheck She had has seen some improvement emotionally with higher dose of sertraline-now on 150 mg daily Reviewed her most recent blood tests She still does very high A1c. She is followed by [facility] pharmacy. She cannot afford Victoza Hopefully she [...] F41.8 Depression with anxiety (primary encounter diagnosis) E11.9 Type 2 diabetes mellitus with hemoglobin a1c goal of 7.0%-8.0% ([facility]) E11.9 Dm type 2 nursing care encounter (formerly [facility]) Plan: Ophthalmology(diabetes-extended)referral op I10 Htn, goal below [...] Care Team Description 01/31/2018 Pharmacy Pharmacy Sp, [facility] [address] [place] [place] [address] [phone] 2018 Office Visit Sleep Disorders Celsa Tafoya CRNP [address] [address] [phone] Marquez, Nurse Sleep Disorders [address] [address] 05/01/2018 Office Visit Family Practice New Provider Kevin Chung [address] [address] [phone] Scheduled Referrals Name Priority Associated Diagnoses Order S chedule OPHTHALMOLOGY(DIABE EVE-EXTENDED)REFERR AL OP Within 10 days (routine) DM type 2 nursing care encounter (HCC) Ordered: 01/26/2018 Health Maintenance Due Date Last Done Comments Yearly B-12 1955 DIABETES-EYE EXAM 02/24/2011 02/24/2010 (Do ne elsewhere), 12/18/2009, 02/18/2008 (Done elsewhere) BREAST CANCER SCREENING DISC USSION YEARLY AGES 40-75 05/09/2016 05/09/2015, 07/12/2014, 07/04/2014, Additional history exists PAP SMEAR-EVERY 3 YRS,AGES 21-65 05/11/2016 05/11/2013, 03/01/2008, 10/19/2006, Additional history exists CKD GFR USE SMARTSET 73906 06/30/201812/29, 12/26/2017, 07/14/2017, Additional history exists DIABETES-HGBA1C EVERY 6 MONTHS 06/30/2018 0 12/29/2017, 07/14/2017, 05/05/2017, Additional history exists DIABETES-LDL EVERY 12 MONTHS 07/14/2018, 10/28/2016, 06/24/2016, Additional history exists CKD HGB USE SMARTSET 04075 12/26/201812/26, 05/21/2017, 05/05/2017, Additional history exists DIABETES-URINE MICROALBUMIN EVERY 12 MONTHS 12/26/2018 12/26/2017, 05/21/2017, 05/05/2017, Additional history exists CKD PHOS USE SMARTSET 98571 12/29/2018 04/0 01/2018, 08/26/2009, 08/25/2009, Additional history [...] h hemoglobin A1c goal of 7.0%-8.0% (HCC) DM type 2 nursing care encou nter (HCC) Type II or unspecified type diabetes mellitus without mention of complication, not stated as uncontrolled HTN, goal below 130/80 Unspecified essential hypertension POSTSURGICAL HYPOTHYROID Postsurgical hypothyroidism Right knee pain, unspecified chronicity Gastroesophageal reflux dise ase with esophagitis in this encounter
--- OUTSIDE RECORDS SUMMARY | 2023-06-01 06:04 | External Medical Summary | Summary of Care ---
Author Name Unknown Organization [place] [address] Phone Care Team Providers Care Reproduction Machine Loader Name Role Phone Teddy De Oliveira MD Primary Care Provider [phone] Encounter Details Date Type Department Care Team Description 01/18/2018 Scan Encounter Unspecified Department <No scans attached> [...] of 7.0%-8.0% ([facility]) Inject 66 Units under the [...] Active metFORMIN ER (GLUCOPHAGE XR) 500 MG [id number]:Uncon trolled type 2 diabetes mellitus with stage 3 chronic kidney disease, with long-term current use of insulin ([facility]) Take 1 Tab by mouth [...] a day 90 Cap 2 12/29/2017 Active as of this encounter Active Problems Problem Noted Date Controlled substance agreement signed Body mass index (BMI) of 50.0 to 59.9 in adult ([facility]) 06/27/2017 Overview: Per Obesity protocol #1 - Per Obesity Taxonomy ICD-10 update of inactive term Uncontrolled type 2 diabetes mellitus with stage 3 chronic kidney disease, with long-term current use of insulin ([facility]) 05/24/2017 Gastroesophageal reflux disease with eso phagitis 03/04/2017 Restless legs syndrome 03/25/2016 Fibromyalgia 02/02/2016 Abnormality of gait 02/02/2016 Type 2 diabetes mellitus with hemoglobin A1c goal of 7.0%-8.0% ([facility]) 10/14/2014 Overview: ICD-10 update of [...] index (BMI) of 40.0-44.9 in adult ([facility] ) 08/17/2010 05/24/2017 Obesity, morbid (more than 1 00 lbs over ideal weight or BMI > 40) ([facility]) 12/23/2009 06/30/2017 Overview: Per Obesity Taxonomy ICD-10 update of inactive term HTN, GOAL BELOW 130/80 10/22/2009 2 Overview: Per HTN Taxonomy. Pneumonia in aspergillosis ([facility]) 09/14/2009 02/15/2017 Venous thrombosis 09/14/2009 10/15/2010 Respiratory failure, acute ([facility]) 09/14/2009 02/15/2017 Spontaneous pneumothorax 09/14/2009 017 Dysuria 08/23/2009 02/15/2017 Type 2 diabetes mellitus wit h hemoglobin A1c goal of less than 7.0% ([facility]) 07/10/2009 10/14/2014 Overview: Modified per Diabetes protocol #14. ICD-10 update of inactive term Dyslipidemia, goal LDL below 160 08/16/2007 09/04/2009 Overview: Per Lipid Taxonomy. HTN, goal below 140/90 04/09/2003 0 Overview: Per HTN Taxonomy. DM type 2, not at goal ([facility]) 05/29/2002 Overview: Modified per Diabetes protocol #14. TENOSYNOVITIS FOOT-ANKLE 12/26/2001 017 Goiter 01/13/2000 06/28/2011 BACKACHE NOS 08/26/1999 05/24/2017 OBESITY, UNSPECIFIED 08/26/1999 12/23/2009 Overview: Per Obesity Taxonomy Perforation of intestine ([facility]) 0 02/15/2017 Overview: COLON Diverticulitis [...] Care Team Description 01/31/2018 Pharmacy Pharmacy Sp[facility] [address] [place] [address] [phone] 2018 Office Visit Sleep Disorders Celsa Tafoya CRNP [address] [address] [phone] Nurse Marquez Sleep Disorders [address] [address] [phone] 05/01/2018 Office Visit [facility] New Provider Kevin Chung [address] [address] [phone] Health Maintenance Due Date Last Done Comments Yearly B-12 1955 DIABETES-EYE EXAM 02/24/2011 02/24/2010 (Do ne elsewhere), 12/18/2009, 02/18/2008 (Done elsewhere) BREAST CANCER SCREENING DISC USSION YEARLY AGES 40-75 05/09/2016 05/09/2015, 07/12/2014, 07/04/2014, Additional history exists PAP SMEAR-EVERY 3 YRS,AGES 21-65 05/11/2016 05/11/2013, 03/01/2008, 10/19/2006, Additional history exists CKD GFR USE SMARTSET 58588 06/30/201812/29, 12/26/2017, 07/14/2017, Additional history exists DIABETES-HGBA1C EVERY 6 MONTHS 06/30/2018 0 12/29/2017, 07/14/2017, 05/05/2017, Additional history exists DIABETES-LDL EVERY 12 MONTHS 07/14/2018, 10/28/2016, 06/24/2016, Additional history exists CKD HGB USE SMARTSET 69774 12/26/201812/26, 05/21/2017, 05/05/2017, Additional history exists DIABETES-URINE MICROALBUMIN EVERY 12 MONTHS 12/26/2018 12/26/2017, 05/21/2017, 05/05/2017, Additional history exists CKD PHOS USE SMARTSET 60857 12/29/2018 04/0 01/2018, 08/26/2009, 08/25/2009, Additional history exists DIABETES-FOOT EXAM 12/29/2018 12/29/2017, 0 10/21/2016, 12/11/2015, Additional history exists PNEUMOCOCCAL 19-64 MEDIUM RISK Completed 08/22/2009 , 06/15/2006 Influenza Vaccine (FLU shot) Completed , 06/24/2016, 07/24/2015, Additional history exists as of this encounter Implants Not on fileas of this encounter Insurance Payer Benefit Plan / Group Subscriber ID Type Phone Address MEDICAID INDIGO [employer] [id number] [facility] [facility] INS [facility] [employer] [id number] as of this encounter
--- OUTSIDE RECORDS SUMMARY | 2023-06-01 06:04 | External Medical Summary | Summary of Care ---
Author Name Unknown Organization [place] [address] Phone Care Team Providers Care Child Nutrition Assistant Name Role Phone Sanjiv Tolliver DO Primary Care Provider Reason for Visit * Reason Comments eRx-Medication Refill Encounter Details Date Type Department Care Team Description 04/01/2018 Refill Family Practice [facility] [address] [place] [address] Teddy De Oliveira MD [address] [facility] [address] [place] [address] [phone] Type 2 diabetes mellitus with hemoglobin A1c goal of 7.0%-8.0% ([facility]) Allergies Active Allergy Reactions Severity Noted [...] of 7.0%-8.0% ([facility]) Inject 66 Units under the skin [...] type 2, goal: symptom mgmt ([facility]) Inject 1.8 mg under the skin [...] Active metFORMIN ER (GLUCOPHAGE XR) 500 MG [id number]:Uncon trolled type 2 diabetes mellitus with stage 3 chronic kidney disease, with long-term current use of insulin ([facility]) Take 4 Tabs by mouth daily. [...] 10/14/2014 Overview: ICD-10 update of inactive term [place] filter in place 08/19/2014 History of pulmonary [...] type 2, not at goal ([facility]) 05/29/2002 Overview: Modified per Diabetes protocol [...] Telephone Encounter - Flaca Morgan LPN - 04/03/2018 2:12 PM EDT Refused Prescriptions: Disp RefillsBD PEN NEEDLE SHORT U/F 31G X 8 MM [Pharma* 10Sig: use three times daily (for lantus twice daily andvictoza once daily) and as neededRefused By: FLACA MORGAN LReason for Refusal: Duplicate Request * Telephone Encounter - Flaca Morgan LPN - 04/03/2018 2:12 PM EDT Pending Prescriptions: Disp Refills BD PEN NEEDLE SHORT U/F 31G X 8 MM [Pharm* 10 Sig: use three times daily (for lantus twice daily and victoza once daily) and as needed Last Office Visit: 03/24/2018 Next Office Visit: 05/01/2018 Scheduled Provider(s): Kevin Whiteside DO in this encounter Plan of Treatment Upcoming Encounters Date Type Specialty Care Team Description 04/25/2018 Pharmacy Pharm[facility] [address] [facility] [address] [phone] 05/01/2018 Office Visit Family Medicine Kevin Whiteside DO [address] [address] [phone] 05/02/2018 Office Visit Sleep Disorders Celsa Tafoya CRNP [address] [address] [phone] Health Maintenance Due Date Last Done Comments [...] Additional history exists CKD GFR USE SMARTSET 99091 06/30/201812/29, 12/26/2017, 07/14/2017, Additional history exists DIABETES-HGBA1C EVERY 6 MONTHS 06/30/2018 0 12/29/2017, 07/14/2017, 05/05/2017, Additional history exists DIABETES-LDL EVERY 12 MONTHS 07/14/2018, 10/28/2016, 06/24/2016, Additional history exists CKD HGB USE SMARTSET 50774 12/26/201812/26, 05/21/2017, 05/05/2017, Additional history exists DIABETES-URINE MICROALBUMIN EVERY 12 MONTHS 12/26/2018 12/26/2017, 05/21/2017, 05/05/2017, Additional history exists CKD PHOS USE SMARTSET 77858 12/29/2018 04/0 01/2018, 08/26/2009, 08/25/2009, Additional history exists DIABETES-FOOT EXAM 12/29/2018 12/29/2017, 0 10/21/2016, 12/11/2015, Additional history exists PNEUMOCOCCAL 19-64 MEDIUM RISK Completed 08/22/2009 , 06/15/2006 as of this encounter Implants Not on fileas of this encounter Visit Diagnoses Diagnosis Type 2 diabetes mellitus wit h hemoglobin A1c goal of 7.0%-8.0% (HCC) in this encounter
--- OUTSIDE RECORDS SUMMARY | 2023-06-01 06:04 | External Medical Summary | Summary of Care ---
Author Name Unknown Organization [place] [address] Phone Care Team Providers Care Director Of Brand Marketing Name Role Phone Teddy De Oliveira MD Primary Care Provider [phone] Reason for Visit * Reason Comments Dosage Adjustment In Person (Anticoag Cl inic) DIABETES FOLLOW-UP Encounter Details Date Type Department Care Team Description 03/07/2018 Pharmacy Pharmacy, [facility] [address] [facility] [place] [address] Sp, [facility] [address] [facility] [address] [place] [address] [phone] Type 2 diabetes mellitus with hemoglobin A1c goal of 7.0%-8.0% ([facility];Uncontrolled type 2 diabetes mellitus with stage 3 chronic kidney disease, with long-term current use of insulin ([facility]) Allergies Active Allergy Reactions Severity Noted Date [...] goal of 7.0%-8.0% ([facility]) Inject 66 Units under the skin [...] type 2, goal: symptom mgmt ([facility]) Inject 1.8 mg under the skin [...] Active metFORMIN ER (GLUCOPHAGE XR) 500 MG [id number]:Unc ontrolled type 2 diabetes mellitus with stage 3 chronic kidney disease, with long-term current use of insulin ([facility]) Take 4 Tabs by mouth daily. 360 Tab 1 03/07/2018 Active metFORMIN ER (GLUCOPHAGE XR) 500 MG [id number]:Unc ontrolled type 2 diabetes mellitus with stage 3 chronic kidney disease, with long-term current use of insulin ([facility]) Take 2 Tabs by mouth daily. 90 Tab 1 02/08/2018 8 Discontinued as of this encounter Active Problems Problem Noted Date Controlled substance agreement signed Body mass index (BMI) of 50.0 to 59.9 in adult ([facility]) 06/27/2017 Overview: Per Obesity protocol #1 - Per Obesity Taxonomy ICD-10 update of inactive term Uncontrolled type 2 diabetes mellitus with stage 3 chronic kidney disease, with long-term current use of insulin ([facility]) 05/24/2017 Gastroesophageal reflux disease with eso phagitis 03/04/2017 Restless legs syndrome 03/25/2016 Fibromyalgia 02/02/2016 Abnormality of gait 02/02/2016 Type 2 diabetes mellitus with hemoglobin A1c goal of 7.0%-8.0% ([facility]) 10/14/2014 Overview: ICD-10 update of inactive [...] of 40.0-44.9 in adult ([facility] ) 08/17/2010 05/24/2017 Obesity, morbid (more than 1 00 lbs over ideal weight or BMI > 40) ([facility]) 12/23/2009 06/30/2017 Overview: Per Obesity Taxonomy ICD-10 update of inactive term HTN, GOAL BELOW 130/80 10/22/2009 2 Overview: Per HTN Taxonomy. Pneumonia in aspergillosis ([facility]) 09/14/2009 02/15/2017 Venous thrombosis 09/14/2009 10/15/2010 Respiratory failure, acute ([facility]) 09/14/2009 02/15/2017 Spontaneous pneumothorax 09/14/2009 017 Dysuria 08/23/2009 02/15/2017 Type 2 diabetes mellitus wit h hemoglobin A1c goal of less than 7.0% ([facility]) 07/10/2009 10/14/2014 Overview: Modified per Diabetes protocol #14. ICD-10 update of inactive term Dyslipidemia, goal LDL below 160 08/16/2007 09/04/2009 Overview: Per Lipid Taxonomy. HTN, goal below 140/90 04/09/2003 0 Overview: Per HTN Taxonomy. DM type 2, not at goal ([facility]) 05/29/2002 Overview: Modified per Diabetes protocol [...] this encounter Progress Notes * Frances Ellis, [facility] - 03/07/2018 9:02 AM EDT Formatting of this note may be different from the original. Medication Therapy Disease Management Diabetes Interval History: Stephanie Camp is an 62 year old year old female returning to the [facility] for a diabetes follow-up appointment. Blood glucose control since last visit: postprandial sugars improved, but all still elevated > 200-300 Medication intolerance: yes; metformin IR Medication compliance: yes Hospitalization or ED Utilization since last visit: no Hypoglycemia requiring assistance since last visit: no Symptoms of hyperglycemia or hypoglycemia present today: no Diet: trying to incorporate more fresh veggies, still not having meals for breakfast/lunch - more carb heavy. Exercise: none Current Diabetes Medications: Continue Lantus/Basaglar - 66 units twice daily Restart Victoza 1.8 mg daily via weekly titration given Increase Metformin 500 mg ER to 2 tablets daily Self-Monitoring Blood Glucose Review: Patient currently tests blood glucose 2 time(s) daily Pre am Pre Lunch Pre pm HS 284 320 222 379 333 245 276 411 276 316 242 324 406 308 Average 305 322 249 344 Hi 333 406 276 411 Lo [phone] #DIV/0! 379 Range 57 161 54 169 Hypoglycemia: 1. Do you know what the symptoms of hypoglycemia are? Yes 2. How often can you tell by your symptoms if your blood sugar is low? hasn't had any lows 3. In a typical week, how many [...] pulmonary embolus (PE) Z86.711 Statin intolerance Z78.[address] Z95.828 Type 2 diabetes [...] HEALTH) Z68.43 Controlled substance agreement signed Z79.899 Review [...] three times a day 90 Cap 2 Glucose Blood (ONETOUCH ULTRA BLUE) STRP Check sugars twice daily as directed 100 Strip 5 hydrochlorothiazide (HYDRODIURIL) 12.5 MG Capsule Take 1 [...] 3 Pre-filled Pen Syringe Dosing Unit 11 lisinopril (PRINIVIL) 10 MG Tablet TAKE ONE TABLET BY MOUTH ONE TIME DAILY 90 Tab 1 metFORMIN ER (GLUCOPHAGE XR) 500 MG TB24 Take 2 Tabs by mouth daily. 90 Tab 1 metoprolol tartrate (LOPRESSOR) 25 MG Tablet Take 1 Tab by mouth 2 times a day. 180 Tab 1 Nortriptyline HCl (PAMELOR) 50 MG Capsule Take 1 Cap by mouth at bedtime. 90 Cap 1 ONETOUCH DELICA LANCETS 33G MISC Check blood sugars twice daily as directed 100 Each 5 oxygen GAS 4 LPM bled through CPAP 11 cwp during all periods of sleep. 1 Each 0 PRILOSEC 20 MG PO CPDR one tablet daily rOPINIRole (REQUIP) 1 MG Tablet TAKE ONE TABLET BY MOUTH AT BEDTIME 30 Tab 5 sertraline (ZOLOFT) 100 MG Tablet 1 1/2 tabs daily 135 Tab 1 Objective: The ASCVD Risk score (Islandiaadrianna JOHNS Jr, et al., 2013) failed to [...] 11.6* FINAL 07/14/17 12:35P 07/14/17 9.3* FINAL 05/05/17 05/06/17 [...] adjust medications as noted below. Patient is agreeable to SMBG 2 time(s) daily. Patient aware to contact clinic if any hypoglycemia before next visit. Reviewed rule of 15s. Diabetes Medications: Lantus/basaglar - 66 units twice daily Victoza 1.8 mg daily Increase Metformin 500 mg ER to 4 tablets daily (eGFR 52.7) Start Jardiance 25 mg daily in AM (eGFR 52.7) Diabetes Health Maintenance: due for eye exam Return to clinic: 6 week(s) Frances Huerta [facility] Clinical Pharmacist Medication Therapy Disease Management 03/07/2018, 9:02 AM in this encounter Plan of Treatment Upcoming Encounters Date Type Specialty Care Team Description 04/25/2018 Pharm[facility] [address] [facility] [place] [address] 05/01/2018 Office Visit Family Medicine New Provider Fam Kevin Mcdonald [address] [address] [phone] 05/02/2018 Office Visit Sleep Disorders Celsa Tafoya CRNP [address] [address] [phone] Health Maintenance Due Date Last Done Comments [...] *TSH FOR THYROID MEDICATION MONITORING YEARLY 03/07/2018 CKD GFR USE SMARTSET 41940 06/30/201812/29, 12/26/2017, 07/14/2017, Additional history exists DIABETES-HGBA1C EVERY 6 MONTHS 06/30/2018 0 12/29/2017, 07/14/2017, 05/05/2017, Additional history exists DIABETES-LDL EVERY 12 MONTHS 07/14/2018, 10/28/2016, 06/24/2016, Additional history exists CKD HGB USE SMARTSET 19740 12/26/201812/26, 05/21/2017, 05/05/2017, Additional history exists DIABETES-URINE MICROALBUMIN EVERY 12 MONTHS 12/26/2018 12/26/2017, 05/21/2017, 05/05/2017, Additional history exists CKD PHOS USE SMARTSET 06916 12/29/201801/2018, 08/26/2009, 08/25/2009, Additional history exists DIABETES-FOOT EXAM 12/29/2018 12/29/2017, 0 10/21/2016, 12/11/2015, Additional history exists PNEUMOCOCCAL 19-64 MEDIUM RISK Completed 08/22/2009 , 06/15/2006 Influenza Vaccine (FLU shot) Completed , 06/24/2016, 07/24/2015, Additional history exists as of this encounter Implants Not on fileas of this encounter Visit Diagnoses Diagnosis Type 2 diabetes mellitus wit h hemoglobin A1c goal of 7.0%-8.0% (HCC) - Primary Uncontrolled type 2 diabetes mellitus with stage 3 chronic kidney disease, with long-term current use of insulin (HCC) in this encounter
--- OUTSIDE RECORDS SUMMARY | 2023-06-01 06:04 | External Medical Summary | Summary of Care ---
Author Name Unknown Organization [place] [address] Phone Care Team Providers Care Associate Director Financial Aid Name Role Phone Teddy De Oliveira MD Primary Care Provider Reason for Visit * Reason Comments Medication Pre-auth Encounter Details Date Type Department Care Team Description 02/09/2018 Telephone Family Practice [facility] [address] [facility] [place] [address] Teddy De Oliveira MD [address] [place] [address] [phone] Medication Pre-auth Allergies Active Allergy Reactions Severity [...] of 7.0%-8.0% ([facility]) Inject 66 Units under the [...] 1 07/14/2017 Active rOPINIRole (REQUIP) 1 MG TabletIndications:Res [...] Active metFORMIN ER (GLUCOPHAGE XR) 500 MG [id number]:Uncon trolled type 2 diabetes mellitus with stage 3 chronic kidney disease, with long-term current use of insulin ([facility]) Take 2 Tabs by mouth daily. 90 Tab 1 02/08/2018 Active ONETOUCH DELICA LANCETS 33G MISC Check blood sugars twice daily as directed 100 Each 5 02/08/2018 Active Glucose Blood (ONETOUCH ULTRA BLUE) STRP Check sugars twice daily as directed 100 Strip 5 02/08/2018 Active as of this encounter Active Problems Problem Noted Date Controlled substance agreement signed Body mass index (BMI) of 50.0 to 59.9 in adult ([facility]) 06/27/2017 Overview: Per Obesity protocol #1 - Per Obesity Taxonomy ICD-10 update of inactive term Uncontrolled type 2 diabetes mellitus with stage 3 chronic kidney disease, with long-term current use of insulin ([facility]) 05/24/2017 Gastroesophageal reflux disease with eso phagitis 03/04/2017 Restless legs syndrome 03/25/2016 Fibromyalgia 02/02/2016 Abnormality of gait 02/02/2016 Type 2 diabetes mellitus with hemoglobin A1c goal of 7.0%-8.0% ([facility]) 10/14/2014 Overview: ICD-10 update of [...] mass index (BMI) of 40.0-44.9 in adult ([facility] ) 08/17/2010 05/24/2017 Obesity, morbid (more than 1 00 lbs over ideal weight or BMI > 40) ([facility]) 12/23/2009 06/30/2017 Overview: Per Obesity Taxonomy ICD-10 update of inactive term HTN, GOAL BELOW 130/80 10/22/2009 2 Overview: Per HTN Taxonomy. Pneumonia in aspergillosis ([facility]) 09/14/2009 02/15/2017 Venous thrombosis 09/14/2009 10/15/2010 Respiratory failure, acute ([facility]) 09/14/2009 02/15/2017 Spontaneous pneumothorax 09/14/2009 017 Dysuria 08/23/2009 02/15/2017 Type 2 diabetes mellitus wit h hemoglobin A1c goal of less than 7.0% ([facility]) 07/10/2009 10/14/2014 Overview: Modified per Diabetes protocol #14. ICD-10 update of inactive term Dyslipidemia, goal LDL below 160 08/16/2007 09/04/2009 Overview: Per Lipid Taxonomy. HTN, goal below 140/90 04/09/2003 0 Overview: Per HTN Taxonomy. DM type 2, not at goal ([facility]) 05/29/2002 Overview: Modified per Diabetes protocol #14. TENOSYNOVITIS FOOT-ANKLE 12/26/2001 017 Goiter 01/13/2000 06/28/2011 BACKACHE NOS 08/26/1999 05/24/2017 OBESITY, UNSPECIFIED 08/26/1999 12/23/2009 Overview: Per Obesity Taxonomy Perforation of intestine ([facility]) 0 02/15/2017 Overview: COLON Diverticulitis [...] Telephone Encounter - Angi Balderrama LPN - 02/13/2018 11:49 AM EDT Would need to get [facility] ID #. This is not in our system. Will call pt and find out, from her insurance card. S/w pt, she got her medication and it was covered. NO need for prior auth. * Telephone Encounter - Inez Nichole CPhT - 02/10/2018 3:42 PM EDT Cover my meds called stating the prior auth for the Victoza was [place] a [place] the patient. However, Cover my meds stated that the patient now uses [facility]. Statingif the patient has [facility] insurance now the prior auth would need to be resubmitted. Cover my meds can be reached at [phone] Ziegler#: [id number]. Please advise. Thanks, Inez Nichole [facility] 02/10/2018,3:44 PM * Telephone Encounter - Jennifer Cesar LPN - 02/09/2018 5:51 PM EDT Received medication pre-auth request from [facility] for Victoza through cover my meds. Ziegler: [id number] Completed cover my meds, awaiting determination in this encounter Plan of Treatment Upcoming Encounters Date Type Specialty Care Team Description 03/07/2018 Pharmacy Pharmacy [facility] [address] [place] [address] [phone] 2018 Office Visit Sleep Disorders Celsa Tafoya CRNP [address] [place] [address] [phone] Nurse Marquez Sleep Disorders [address] [place] [address] [phone] 05/01/2018 Office Visit Family Medicine New Provider Fam Kevin Mcdonald [address] [place] [address] [phone] Health Maintenance Due Date Last Done Comments Yearly B-12 1955 DIABETES-EYE EXAM 02/24/2011 02/24/2010 (Do ne elsewhere), 12/18/2009, 02/18/2008 (Done elsewhere) BREAST CANCER SCREENING DISC USSION YEARLY AGES 40-75 05/09/2016 05/09/2015, 07/12/2014, 07/04/2014, Additional history exists PAP SMEAR-EVERY 3 YRS,AGES 21-65 05/11/2016 05/11/2013, 03/01/2008, 10/19/2006, Additional history exists CKD GFR USE SMARTSET 01380 06/30/201812/29, 12/26/2017, 07/14/2017, Additional history exists DIABETES-HGBA1C EVERY 6 MONTHS 06/30/2018 0 12/29/2017, 07/14/2017, 05/05/2017, Additional history exists DIABETES-LDL EVERY 12 MONTHS 07/14/2018, 10/28/2016, 06/24/2016, Additional history exists CKD HGB USE SMARTSET 23321 12/26/201812/26, 05/21/2017, 05/05/2017, Additional history exists DIABETES-URINE MICROALBUMIN EVERY 12 MONTHS 12/26/2018 12/26/2017, 05/21/2017, 05/05/2017, Additional history exists CKD PHOS USE SMARTSET 90940 12/29/2018 04/0 01/2018, 08/26/2009, 08/25/2009, Additional history exists DIABETES-FOOT EXAM 12/29/2018 12/29/2017, 0 10/21/2016, 12/11/2015, Additional history exists PNEUMOCOCCAL 19-64 MEDIUM RISK Completed 08/22/2009 , 06/15/2006 Influenza Vaccine (FLU shot) Completed , 06/24/2016, 07/24/2015, Additional history exists as of this encounter Implants Not on fileas of this encounter
--- OUTSIDE RECORDS SUMMARY | 2023-06-01 06:04 | External Medical Summary | Summary of Care ---
Author Name Unknown Organization [place] [address] Phone Care Team Providers Care Beam Warper Name Role Phone Teddy De Oliveira MD Primary Care Provider [phone] Reason for Visit * Reason Comments eRx-Medication Refill Encounter Details Date Type Department Care Team Description 03/09/2018 Refill Family Practice [facility] [address] [facility] [place] [address] Teddy De Oliveira MD [address] [place] [address] [phone] Restless legs syndrome Allergies Active Allergy Reactions [...] Active metFORMIN ER (GLUCOPHAGE XR) 500 MG [id number]:Unc ontrolled type 2 diabetes mellitus with stage 3 chronic kidney disease, with long-term current use of insulin ([facility]) Take 4 Tabs by mouth daily. 360 Tab 1 03/07/2018 Active rOPINIRole (REQUIP) 1 MG TabletIndications:R estless legs syndrome TAKE ONE TABLET BY MOUTH AT BEDTIME 30 Tab 4 03/09/2018 Active rOPINIRole (REQUIP) 1 MG TabletIndications:R estless legs syndrome TAKE ONE TABLET BY MOUTH AT BEDTIME 30 Tab 5 09/29/2017 8 Discontinued as of this encounter Active [...] Encounter - Teddy De Oliveira MD - 03/09/2018 1:21 PM EDT Signed Prescriptions: Disp Refills rOPINIRole (REQUIP) 1 MG Tablet 30 Tab 4 Sig: TAKE ONE TABLET BY MOUTH AT BEDTIME Authorizing Provider: TEDDY DE OLIVEIRA * Telephone Encounter - Mattie Hilario LPN - 03/09/2018 12:40 PM EDT Pending Prescriptions: Disp Refills rOPINIRole (REQUIP) 1 MG Tablet [Pharmacy*30 Tab 4 Sig: TAKE ONE TABLET BY MOUTH AT BEDTIME * Telephone Encounter - Flaca Real, CHUYITA - 03/09/2018 12:37 PM EDT Pending Prescriptions: Disp Refills rOPINIRole (REQUIP) 1 MG Tablet [Pharmacy*30 Tab 4 Sig: TAKE ONE TABLET BY MOUTH AT BEDTIME * Telephone Encounter - Flaca Real, CHUYITA - 03/09/2018 12:37 PM EDT Pending Prescriptions: Disp Refills rOPINIRole (REQUIP) 1 MG Tablet [Pharmacy*30 Tab 4 Sig: TAKE ONE TABLET BY MOUTH AT BEDTIME Last Office Visit: 01/26/2018 Next Office Visit: 05/01/2018 Scheduled Provider(s): Kevin Whiteside DO rLr -14- in this encounter Plan of Treatment Upcoming Encounters Date Type Specialty Care Team Description 04/25/2018 Pharmacy Pharmacy [facility] [address] [facility] [place] [address] [phone] 05/01/2018 Office Visit Family Medicine Kevin Whiteside DO [address] [place] [address] [phone] 05/02/2018 Office Visit Sleep Disorders Celsa Tafoya CRNP [address] [place] [address] [phone] Health Maintenance Due Date Last Done Comments Yearly B-12 1955 DIABETES-EYE EXAM 02/24/2011 02/24/2010 (Do ne elsewhere), 12/18/2009, 02/18/2008 (Done elsewhere) BREAST CANCER SCREENING DISC USSION YEARLY AGES 40-75 05/09/2016 05/09/2015, 07/12/2014, 07/04/2014, Additional history exists PAP SMEAR-EVERY 3 YRS,AGES 21-65 05/11/2016 05/11/2013, 03/01/2008, 10/19/2006, Additional history exists *DEPRESSION SCREENING, BILLYUA Zuleyma FOR PTS 18 AND OVER 03/07/2018 *TSH FOR THYROID MEDICATION MONITORING YEARLY 03/07/2018 CKD GFR USE SMARTSET 94479 06/30/201812/29, 12/26/2017, 07/14/2017, Additional history exists DIABETES-HGBA1C EVERY 6 MONTHS 06/30/2018 0 12/29/2017, 07/14/2017, 05/05/2017, Additional history exists DIABETES-LDL EVERY 12 MONTHS 07/14/2018, 10/28/2016, 06/24/2016, Additional history exists CKD HGB USE SMARTSET 68899 12/26/201812/26, 05/21/2017, 05/05/2017, Additional history exists DIABETES-URINE MICROALBUMIN EVERY 12 MONTHS 12/26/2018 12/26/2017, 05/21/2017, 05/05/2017, Additional history exists CKD PHOS USE SMARTSET 30172 12/29/2018 04/0 01/2018, 08/26/2009, 08/25/2009, Additional history exists DIABETES-FOOT EXAM 12/29/2018 12/29/2017, 0 10/21/2016, 12/11/2015, Additional history exists PNEUMOCOCCAL 19-64 MEDIUM RISK Completed 08/22/2009 , 06/15/2006 Influenza Vaccine (FLU shot) Completed , 06/24/2016, 07/24/2015, Additional history exists as of this encounter Implants Not on fileas of this encounter Visit Diagnoses Diagnosis Restless legs syndrome Restless legs syndrome (RLS) in this encounter
--- OUTSIDE RECORDS SUMMARY | 2023-06-01 06:05 | External Medical Summary | Summary of Care ---
Author Name Unknown Organization [place] [address] Phone Care Team Providers Care Family Medicine Resident Name Role Phone Teddy De Oliveira MD Primary Care Provider [phone] Encounter Details Date Type Department Care Team Description 12/26/2017 Scan Encounter Unspecified Department <No scans attached> [...] 7.0%-8.0% ([facility]) Use 3 times daily (for Lantus twice [...] ([facility]) Inject 66 Units under the skin 2 [...] Active metFORMIN ER (GLUCOPHAGE XR) 500 MG [id number]:Uncon trolled type 2 diabetes mellitus with stage 3 chronic kidney disease, with long-term current use of insulin ([facility]) Take [...] Pen Syringe Dosing Unit 11 11/02/2017 Active as of this encounter Active Problems Problem Noted Date Controlled substance agreement signed Body mass index (BMI) of 50.0 to 59.9 in adult ([facility]) 06/27/2017 Overview: Per Obesity protocol #1 - Per Obesity Taxonomy ICD-10 update of inactive term Uncontrolled type 2 diabetes mellitus with stage 3 chronic kidney disease, with long-term current use of insulin ([facility]) 05/24/2017 Gastroesophageal reflux disease with eso phagitis 03/04/2017 Restless legs syndrome 03/25/2016 Fibromyalgia 02/02/2016 Abnormality of gait 02/02/2016 Type 2 diabetes mellitus with hemoglobin A1c goal of 7.0%-8.0% ([facility]) 10/14/2014 Overview: ICD-10 update of inactive term Frank filter in place 08/19/2014 History of pulmonary embolus (PE) 2013 Statin intolerance 07/16/2014 HTN, goal below 130/80 02/22/2014 Kidney disease, chronic, stage III (GFR 30-59 ml/min) 11/19/2013 Overview: Per CKD protocol #1 Venous insufficiency 02/07/2013 ELISSA (obstructive sleep apnea) [...] Resolved Problems Problem Noted Date Resolved Date HTN, goal below 140/80 05/15/2012 4 Overview: Per HTN Protocol #27. Nontoxic uninodular goiter 06/16/201108/17 Body mass index (BMI) of 40.0-44.9 in adult ([facility] ) 08/17/2010 05/24/2017 Obesity, morbid (more than 1 00 lbs over ideal weight or BMI > 40) ([facility]) 12/23/2009 06/30/2017 Overview: Per Obesity Taxonomy ICD-10 update of inactive term HTN, GOAL BELOW 130/80 10/22/2009 2 Overview: Per HTN Taxonomy. Pneumonia in aspergillosis ([facility]) 09/14/2009 02/15/2017 Venous thrombosis 09/14/2009 10/15/2010 Respiratory failure, acute ([facility]) 09/14/2009 02/15/2017 Spontaneous pneumothorax 09/14/2009 017 Dysuria 08/23/2009 02/15/2017 Type 2 diabetes mellitus wit h hemoglobin A1c goal of less than 7.0% ([facility]) 07/10/2009 10/14/2014 Overview: Modified per Diabetes protocol #14. ICD-10 update of inactive term Dyslipidemia, goal LDL below 160 08/16/2007 09/04/2009 Overview: Per Lipid Taxonomy. HTN, goal below 140/90 04/09/2003 0 Overview: Per HTN Taxonomy. DM type 2, not at goal ([facility]) 05/29/2002 Overview: Modified per Diabetes protocol #14. TENOSYNOVITIS FOOT-ANKLE 12/26/2001 017 Goiter 01/13/2000 06/28/2011 BACKACHE NOS 08/26/1999 05/24/2017 OBESITY, UNSPECIFIED 08/26/1999 12/23/2009 Overview: Per Obesity Taxonomy Perforation of intestine ([facility]) 0 02/15/2017 Overview: COLON Diverticulitis as of [...] Encounters Date Type Specialty Care Team Description 01/04/2018 Pharmacy Pharmacy Sp, [facility] [address] [place] [address] [phone] Uncontrolled type 2 diabetes mellitus with stage 3 chronic kidney disease, with long-term current use of insulin ([facility])* 01/10/2018 Office Visit Podiatry Frances Arias, ELENA [address] [place] [address] [phone] 01/18/2018 Pharmacy Pharmacy , [facility] [address] [facility] [place] [address] [phone] 01/26/2018 Office Visit Family Practice Teddy De Oliveira MD [address] [place] [address] [phone] 2018 Office Visit Sleep Disorders Celsa Tafoya CRNP [address] [place] [address] [phone] Nurse Marquez [facility] Disorders [address] [place] [address] [phone] Health Maintenance Due Date Last Done Comments Yearly B-12 1955 DIABETES-EYE EXAM 02/24/2011 02/24/2010 (Do ne elsewhere), 12/18/2009, 02/18/2008 (Done elsewhere) BREAST CANCER SCREENING DISC USSION YEARLY AGES 40-75 05/09/2016 05/09/2015, 07/12/2014, 07/04/2014, Additional history exists PAP SMEAR-EVERY 3 YRS,AGES 21-65 05/11/2016 05/11/2013, 03/01/2008, 10/19/2006, Additional history exists CKD GFR USE SMARTSET 97714 06/30/201812/29, 12/26/2017, 07/14/2017, Additional history exists DIABETES-HGBA1C EVERY 6 MONTHS 06/30/2018 0 12/29/2017, 07/14/2017, 05/05/2017, Additional history exists DIABETES-LDL EVERY 12 MONTHS 07/14/2018, 10/28/2016, 06/24/2016, Additional history exists CKD HGB USE SMARTSET 83958 12/26/201812/26, 05/21/2017, 05/05/2017, Additional history exists DIABETES-URINE MICROALBUMIN EVERY 12 MONTHS 12/26/2018 12/26/2017, 05/21/2017, 05/05/2017, Additional history exists CKD PHOS USE SMARTSET 41634 12/29/2018 04/0 01/2018, 08/26/2009, 08/25/2009, Additional history exists DIABETES-FOOT EXAM 12/29/2018 12/29/2017, 0 10/21/2016, 12/11/2015, Additional history exists PNEUMOCOCCAL 19-64 MEDIUM RISK Completed 08/22/2009 , 06/15/2006 Influenza Vaccine (FLU shot) Completed , 06/24/2016, 07/24/2015, Additional history exists as of this encounter Implants Not on fileas of this encounter Insurance Payer Benefit Plan / Group Subscriber ID Type Phone Address [facility] [employer]TRA [id number] [phone] [place] [id number] [facility] [employer] [id number] as of this encounter
--- OUTSIDE RECORDS SUMMARY | 2023-06-01 06:05 | External Medical Summary | Summary of Care ---
Author Name Unknown Organization [place] [address] Phone Care Team Providers Care Smash Fixer Name Role Phone Teddy De Oliveira MD Primary Care Provider [phone] Reason for Visit * Reason Comments STATUS CHECK Encounter Details Date Type Department Care Team Description 01/18/2018 Pharmacy Pharmacy, [facility] [address] [place] [address] Sp, [facility] [address] [facility] [place] [address] [phone] Type 2 diabetes mellitus with hemoglobin A1c goal of 7.0%-8.0% ([facility])* Allergies Active Allergy Reactions Severity Noted Date [...] 7.0%-8.0% ([facility]) Use 3 times daily (for Lantus twice [...] Active metFORMIN ER (GLUCOPHAGE XR) 500 MG [id number]:Uncon trolled type 2 diabetes mellitus with stage 3 chronic kidney disease, with long-term current use of insulin ([facility]) Take 1 Tab by mouth daily. 30 Tab 11 07/14/2017 Active rOPINIRole (REQUIP) 1 MG TabletIndications:Res tless legs syndrome TAKE ONE TABLET BY MOUTH AT BEDTIME 30 Tab 5 09/29/2017 Active lisinopril (PRINIVIL) 10 MG TabletIndications:HTN , goal below 140/80 TAKE ONE TABLET BY MOUTH ONE TIME DAILY 90 Tab 1 10/21/2017 Active liraglutide (VICTOZA) 18 MG/3ML SOPNIndications:DM type 2, goal: symptom mgmt ([facility]) Inject 1.8 mg under the skin daily. [...] Obesity Taxonomy Perforation of intestine ([facility]) 0 02/15/2017 Overview: COLON Diverticulitis as of [...] Progress Notes * Mar Simeon, ELISSA - 01/18/2018 1:50 PM EDT Scheduled patient for first DM visit for 58 in am-patient will bring her meter with her. * Dea Vega [facility] - 01/18/2018 1:36 PM EDT Agree with plan Dea Vega, PharmD, [facility] Clinical Pharmacist 01/18/2018, 1:36 PM * Mar Simeon OSA - 01/18/2018 1:34 PM EDT Patient loss her job and has no insurance-MTM will follow-up in 30 days to see if patient has acquired insurance. in this encounter Plan of Treatment Upcoming Encounters Date Type Specialty Care Team Description 01/18/2018 Pharmacy Pharmacy [facility] [address] [facility] [place], [place] [address] [phone] Type 2 diabetes mellitus with hemoglobin A1c goal of 7.0%-8.0% ([facility])* 01/26/2018 Office Visit Family Practice Teddy De Oliveira MD [address] [place] [address] [phone] 01/31/2018 Pharmacy Pharmacy Sp, [facility] [address] [facility] [place], [place] [address] [phone] 2018 Office Visit Sleep Disorders Celsa Tafoya CRNP [address] [place] [address] [phone] Marquez, Nurse Sleep Disorders [address] [place] [address] [phone] Health Maintenance Due Date Last Done Comments Yearly B-12 1955 DIABETES-EYE EXAM 02/24/2011 02/24/2010 (Do ne elsewhere), 12/18/2009, 02/18/2008 (Done elsewhere) BREAST CANCER SCREENING DISC USSION YEARLY AGES 40-75 05/09/2016 05/09/2015, 07/12/2014, 07/04/2014, Additional history exists PAP SMEAR-EVERY 3 YRS,AGES 21-65 05/11/2016 05/11/2013, 03/01/2008, 10/19/2006, Additional history exists CKD GFR USE SMARTSET 83394 06/30/201812/29, 12/26/2017, 07/14/2017, Additional history exists DIABETES-HGBA1C EVERY 6 MONTHS 06/30/2018 0 12/29/2017, 07/14/2017, 05/05/2017, Additional history exists DIABETES-LDL EVERY 12 MONTHS 07/14/2018, 10/28/2016, 06/24/2016, Additional history exists CKD HGB USE SMARTSET 50108 12/26/201812/26, 05/21/2017, 05/05/2017, Additional history exists DIABETES-URINE MICROALBUMIN EVERY 12 MONTHS 12/26/2018 12/26/2017, 05/21/2017, 05/05/2017, Additional history exists CKD PHOS USE SMARTSET 07892 12/29/201801/2018, 08/26/2009, 08/25/2009, Additional history exists DIABETES-FOOT EXAM 12/29/2018 12/29/2017, 0 10/21/2016, 12/11/2015, Additional history exists PNEUMOCOCCAL 19-64 MEDIUM RISK Completed 08/22/2009 , 06/15/2006 Influenza Vaccine (FLU shot) Completed , 06/24/2016, 07/24/2015, Additional history exists as of this encounter Implants Not on fileas of this encounter Visit Diagnoses Diagnosis Type 2 diabetes mellitus wit h hemoglobin A1c goal of 7.0%-8.0% ([facility]) - Primary in this encounter Insurance Payer Benefit Plan / Group Subscriber ID Type Phone Address [facility] [employer] [facility] [employer] [id number] [phone] [address] [facility]HAVIORAL MENTAL HEALTH INS [facility] [employer] [id number] as of this encounter
--- OUTSIDE RECORDS SUMMARY | 2023-06-01 06:05 | External Medical Summary | Summary of Care ---
Author Name Unknown Organization [place] [address] Phone Care Team Providers Care Head Esthetician Name Role Phone Teddy De Oliveira MD Primary Care Provider [phone] Reason for Referral * Evaluate & Treat - Unlimited Visits (Within 10 days (routine)) Status Reason Specialty Diagnoses / Procedures Referred By Contact Referred To Contact Authorized Specialty Services Required Pharmacist / Pharmacy Diagnoses DM type 2 nursing care encounter (HCC) Teddy De Oliveira MD [address] [address] * Evaluate & Treat - Unlimited Visits (Within 10 days (routine)) Status Reason Specialty Diagnoses / Procedures Referred By Contact Referred To Contact Authorized Specialty Services Required Ophthalmology Diagnoses DM type 2 nursing care encounter (HCC) Teddy De Oliveira MD [address] [address] Reason for Visit * Reason Comments RECHECK 4 mo EMERGENCY DEPARTMENT FOLLOW-UP Pt was at [facility] ER on 12/04/17 and 12/26/17 Encounter Details Date Type Department Care Team Description 12/29/2017 Office Visit Family [facility] [address] [address] Teddy De Oliveira MD [address] [address] [phone] Depression with anxiety*;Type 2 diabetes mellitus with hemoglobin A1c goal of 7.0%-8.0% (HCC);POSTSURGICAL HYPOTHYROID;HTN, goal below 130/80;DM type 2 nursing care encounter (HCC);Neuropathy;Fibro myalgia;Gastroesophage al reflux disease with esophagitis;Stress reaction;Kidney disease, chronic, stage III (GFR 30-59 ml/min);Body mass index (BMI) of 50.0 to 59.9 in adult ([facility]) Allergies Active Allergy Reactions Severity Noted Date Comments Heparin 09/04/2009 Heparin Induced Thrombocytopenia Morphine And Related 09/16/1997 Hallucinations Tetanus Toxoid Other (Please comment) 06/15/2011 Passed out as of this encounter Medications Prescription Sig. Disp. Refills Start Date End Date Status PRILOSEC 20 MG PO CPDR one tablet daily Active oxygen GASIndications:AMAN (obstructive sleep apnea) 4 LPM bled through [...] A1c goal of 7.0%-8.0% ([facility]) Use 3 times daily (for Lantus twice [...] goal of 7.0%-8.0% ([facility]) Inject 66 Units under the skin 2 [...] Active metFORMIN ER (GLUCOPHAGE XR) 500 MG [id number]:Unc ontrolled type 2 diabetes mellitus with stage [...] 0 12/29/2017 Active hydrochlorothiazide (HYDRODIURIL) 12.5 MG CapsuleIndications: HTN, goal below 130/80 Take 1 Cap by mouth daily. 90 Cap 3 12/29/2017 Active sertraline (ZOLOFT) 100 MG TabletIndications:D epression with anxiety 1 1/2 tabs daily 135 Tab 1 12/29/2017 Active gabapentin (NEURONTIN) 300 MG CapsuleIndications: Neuropathy,Fibromya lgia one pill twice a day x 2 wks Then one pill three times a day 90 Cap 2 12/29/2017 Active hydrochlorothiazide (HYDRODIURIL) 12.5 MG CapsuleIndications: HTN, goal below 130/80 Take 1 Cap by mouth daily. 90 Cap 1 03/31/2017 8 Discontinued traMADol (ULTRAM) 50 MG TabletIndications:F ibromyalgia TAKE ONE TABLET BY MOUTH EVERY SIX HOURS NEEDED FOR PAIN 90 Tab 0 07/14/2017 8 Discontinued sertraline (ZOLOFT) 100 MG TabletIndications:D epression with anxiety Take 1 Tab by mouth daily. 90 Tab 1 07/14/2017 8 Discontinued levothyroxine (LEVOXYL) 25 MCG TabletIndications:P ostsurgical hypothyroidism TAKE ONE TABLET BY MOUTH IN THE MORNING AT LEAST 30 MINUTES PRIOR TO BREAKFAST OR OTHER MEDS 90 Tab 0 08/02/2017 8 Discontinued gabapentin (NEURONTIN) 100 MG CapsuleIndications: DM type 2 with diabetic peripheral neuropathy (HCC) Take 1 Cap by mouth 3 times a day. 90 Cap 2 08/29/2017 8 Discontinued as of this encounter Active Problems Problem Noted Date Controlled substance agreement signed Body mass index (BMI) of 50.0 to 59.9 in adult ([facility]) 06/27/2017 Overview: Per Obesity protocol #1 - Per Obesity Taxonomy ICD-10 update of inactive term Uncontrolled type 2 diabetes mellitus with stage 3 chronic kidney disease, with long-term current use of insulin ([facility]) 05/24/2017 Gastroesophageal reflux disease with eso phagitis 03/04/2017 Restless legs syndrome 03/25/2016 Fibromyalgia 02/02/2016 Abnormality of gait 02/02/2016 Type 2 diabetes mellitus with hemoglobin A1c goal of 7.0%-8.0% ([facility]) 10/14/2014 Overview: ICD-10 update of inactive term Frank filter in place 08/19/2014 History of pulmonary embolus (PE) 2013 Statin intolerance 07/16/2014 HTN, goal below 130/80 02/22/2014 Kidney disease, chronic, stage III (GFR 30-59 ml/min) 11/19/2013 Overview: Per CKD protocol #1 Venous insufficiency 02/07/2013 AMAN (obstructive sleep apnea) 09/16/2011 Overview: CPAP 11 cwp Mild, AHI 11.3 but with significant nocturnal hypoxemia Dicks Hypoxemia 07/22/2011 Overview: Nocturnal ox 2 LPM 07/20/11 -- mean 84%, low 76%, time <89% 6:21 hours, TINY [facility] Postsurgical hypothyroidism 06/16/2011 Depression with [...] mass index (BMI) of 40.0-44.9 in adult ([facility] ) 08/17/2010 05/24/2017 Obesity, morbid (more than 1 00 lbs over ideal weight or BMI > 40) ([facility]) 12/23/2009 06/30/2017 Overview: Per Obesity Taxonomy ICD-10 update of inactive term HTN, GOAL BELOW 130/80 10/22/2009 2 Overview: Per HTN Taxonomy. Pneumonia in aspergillosis ([facility]) 09/14/2009 02/15/2017 Venous thrombosis 09/14/2009 10/15/2010 Respiratory failure, acute ([facility]) 09/14/2009 02/15/2017 Spontaneous pneumothorax 09/14/2009 017 Dysuria 08/23/2009 02/15/2017 Type 2 diabetes mellitus wit h hemoglobin A1c goal of less than 7.0% ([facility]) 07/10/2009 10/14/2014 Overview: Modified per Diabetes protocol #14. ICD-10 update of inactive term Dyslipidemia, goal LDL below 160 08/16/2007 09/04/2009 Overview: Per Lipid Taxonomy. HTN, goal below 140/90 04/09/2003 0 Overview: Per HTN Taxonomy. DM type 2, not at goal ([facility]) 05/29/2002 Overview: Modified per Diabetes protocol #14. [...] Vital Sign Reading Time Taken Blood Pressure 126/76 12/29/2017 11:36 AM EDT Pulse 80 12/29/2017 11:36 AM EDT Temperature 36.1 C (96.9 F) 12/29/2017 1 1:36 AM EDT Respiratory Rate 20 12/29/2017 11:3 6 AM EDT Oxygen Saturation - - Inhaled Oxygen Concentration - - Weight 149.3 kg (329 lb 4 oz) 8 11:36 AM EDT Height - - Body Mass Index 56.52 12/29/2017 11:36 AM EDT in this encounter Instructions * Patient Instructions - Jennifer Cesar LPN - 12/29/2017 11:40 AM EDT Dear Stephanie Camp, The care [...] and Fax Number: Teddy De Oliveira MD [address] [facility] [address] Diabetes: Keeping Feet Healthy Inspect your feet [...] calluses yourself. Talk to your doctor or mill tender (a doctor who specializes in foot care) [...] the area doesnt appear to be healing. [phone] [employer], [address] [place] [address], [place] [address]. All rights reserved. This information is not intended as a substitute for professional medical care. Always follow your healthcare professional's instructions. in this encounter Progress Notes * Teddy De Oliveira MD - 01/01/2018 2:47 PM EDT Subjective: Patient here for hospital recheck. She was in the ER on December 04 for emotional stress. She had increased anxiety and depression along with stress reaction as a result losing her job [employer]. She is feeling somewhat better emotionally. She is on sertraline 100 mg daily Agreeable to increasing the dose for now. She also has fibromyalgia, diabetes has been difficult to control, diabetic neuropathy that causes pain. Despite twice a day Lantus insulin-66 units twice a day along with Victoza and metformin ER 500 mg daily, she still has very high blood sugars. She has been to see [facility] pharmacy in the past, has not been there for a while. She has not had suicidal thoughts Reviewed her emergency room evaluation. She was also seen on December 26 for severely high blood sugars-as high has 538. Blood sugars have been in the 3 100s since that time. Reviewed her medications She does have significant pain especially in the knees shoulders, hands and arms. She has been started on low dose of gabapentin She has had knee replacement x1, does have significant pain in the left knee. Acid reflux under fair control She also has kidney disease that alters medications that can be used for her diabetes She would like to hold off short-acting insulin during meals. She is on CPAP for sleep apnea, uses oxygen at night to treat hypoxemia Objective: Throat unremarkable neck without thyroid gland carotids 2+ bilaterally Lungs clear Cardiac exam with regular rate rhythm no murmur Extremities with 1+ pitting edema Assessment: F41.8 Depression with anxiety (primary encounter diagnosis) Plan: Sertraline hcl 100 mg po tabs Si 1/2 tabs daily Increased dose E11.9 Type 2 diabetes mellitus with hemoglobin a1c goal of 7.0%-8.0% ([facility]) [facility] pharmacy referral done-to help with management of hard to control diabetes Continue present meds E89.0 Postsurgical hypothyroid Plan: Levothyroxine sodium 25 mcg or tabs Sig:Take one tablet by mouth in the morning at least 30 minutesprior to breakfast or other meds I10 Htn, goal below 130/80 Reasonable control Plan: Hydrochlorothiazide 12.5 mg po caps Sig:Take 1 cap by mouth daily. Continue other meds E11.9 Dm type 2 nursing care encounter (hcc) Plan: Hemoglobin a1c Basic metab panel, bmp Hemoglobin a1c Basic metab panel, bmp Ophthalmology(diabetes-extended)referral op Pharmacist meds therapy mgmt referral op Diabetes foot exam G62.9 Neuropathy Plan: Gabapentin 300 mg po caps Sig:One pill twice a day x 2 wks then one pill three times a day Increased dose M79.7 Fibromyalgia Plan: Compr metab panel Gabapentin 300 mg po caps Sig:One pill twice a day x 2 wks then one pill three times a day K21.0 Gastroesophageal reflux disease with esophagitis Continue Prilosec F43.0 Stress reaction Increased dose of Zoloft N18.3 Kidney disease, chronic, stage iii (gfr 30-59 ml/min) Plan: Phosphorus Phosphorus Z68.43 Body mass index (bmi) of 50.0 to 59.9 in adult ([facility]) Z11.59, Z11.8 Special screening examination for viral and chlamydial disease Plan: Hiv ag&ab screen w/ confirmation Hiv ag&ab screen w/ confirmation G47.33 Aman (obstructive sleep apnea) Continue CPAP and oxygen Follow up: Return in about 1 month (around 01/28/2018). * Jennifer Cesar LPN - 12/29/2017 11:40 AM EDT The importance of having a yearly diabetic eye exam has been discussed with patient. Order and Referral placed along with patient instructions. Provider made aware. Jennifer Cesar LPN DM Foot Exam completed today. Provider aware. Jennifer Cesar LPN Socks and Shoes Removed for Annual Diabetic Foot Screening RIGHT FOOT: No Reddened, Cracking, Or Open Areas Noted. Pt c/o pain in both feet RIGHT Dorsalis Pedis Pulse: Palpable RIGHT Posterior Tibial Pulse: Palpable RIGHT Monofilament:Patient reports feeling monofilament pressure on plantar surface of foot LEFT FOOT: No Reddened, Cracking or Open Areas Noted. LEFT Dorsalis Pedis Pulse: Palpable LEFT Posterior Tibial Pulse: Palpable LEFT Monofilament: Patient reports feeling monofilament pressure on plantar surface of foot in this encounter Nursing Notes * Jennifer Cesar LPN - 12/29/2017 11:39 AM EDT Formatting of this note may be different from the original. Chief Complaint Patient presents with RECHECK 4 mo in this encounter Plan of Treatment Upcoming Encounters Date Type Specialty Care Team Description 01/04/2018 Pharmacy Pharmacy [facility] [address] [place] [address] [phone] 01/10/2018 Office Visit Podiatry Frances Arias DPM [address] [place] [address] 01/26/2018 Office Visit Family Practice Teddy De Oliveira MD [address] [address] [phone] 2018 Office Visit Sleep Disorders Celsa Tafoya CRNP [address] [address] [phone] [facility] [address] [address] Scheduled Referrals Name Priority Associated Diagnoses Order S chedule OPHTHALMOLOGY(DIABETES- EXTENDED)REFERRAL OP Within 10 days (routine) DM type 2 nursing care encounter (HCC) Ordered: 12/29/2017 PHARMACIST MEDS THERAPY MGMT REFERRAL OP Within 10 days (routine) DM type 2 nursing care encounter (HCC) Ordered: 12/29/2017 Health Maintenance Due Date Last Done Comments Yearly B-12 1955 DIABETES-EYE EXAM 02/24/2011 02/24/2010 (Do ne elsewhere), 12/18/2009, 02/18/2008 (Done elsewhere) BREAST CANCER SCREENING DISC USSION YEARLY AGES 40-75 05/09/2016 05/09/2015, 07/12/2014, 07/04/2014, Additional history exists PAP SMEAR-EVERY 3 YRS,AGES 21-65 05/11/2016 05/11/2013, 03/01/2008, 10/19/2006, Additional history exists CKD GFR USE SMARTSET 27928 06/30/201812/29, 12/26/2017, 07/14/2017, Additional history exists DIABETES-HGBA1C EVERY 6 MONTHS 06/30/2018 0 12/29/2017, 07/14/2017, 05/05/2017, Additional history exists DIABETES-LDL EVERY 12 MONTHS 07/14/2018, 10/28/2016, 06/24/2016, Additional history exists CKD HGB USE SMARTSET 05903 12/26/201812/26, 05/21/2017, 05/05/2017, Additional history exists DIABETES-URINE MICROALBUMIN EVERY 12 MONTHS 12/26/2018 12/26/2017, 05/21/2017, 05/05/2017, Additional history exists CKD PHOS USE SMARTSET 45995 12/29/2018 04/0 01/2018, 08/26/2009, 08/25/2009, Additional history exists DIABETES-FOOT EXAM 12/29/2018 12/29/2017, 0 10/21/2016, 12/11/2015, Additional history exists PNEUMOCOCCAL 19-64 MEDIUM RISK Completed 08/22/2009 , 06/15/2006 Influenza Vaccine (FLU shot) Completed , 06/24/2016, 07/24/2015, Additional history exists as of this encounter Implants Not on fileas of this encounter Results * COMPR METAB PANEL (12/29/2017 12:43 PM) Component Value Ref Range BUN 24(H) 6 - 20 mg/dL CREATININE 1.1(H) Comment: GFR should be used to assess renal function.Plasma/Serum creatinine may not be able to properly reflect renal function in some cases. 0.5 - 1.0 mg/dL SODIUM 134(L) 135 - 146 mmol/L POTASSIUM 4.9 3.5 - 5.1 mmol/L CHLORIDE 95(L) 98 - 107 mmol/L CO2 25 22 - 32 mmol/L ANION GAP 14 7 - 15 mmol/L GLUCOSE 463(H) 70 - 120 mg/dL ALBUMIN 3.8 3.8 - 5.0 g/dL AST 40(H) 10 - 35 U/L ALKALINE PHOSPHATASE 104 0 - 153 U/L BILIRUBIN, TOTAL 0.3 0 - 1.2 mg/dL CALCIUM 8.9 8.4 - 10.2 mg/dL PROTEIN 7.9 6.0 - 8.3 g/dL ALT 40(H) 10 - 35 U/L E GLOM FILT RATE 53.2(L)Comment:If sandy witt is , multiply estimated GFR by 1.159. >60 Specimen Performing Laborator y [facility] [address] [place] [address] * PHOSPHORUS (12/29/2017 12:43 PM) Component Value Ref Range PHOSPHORUS 3.3 2.5 - 4.8 mg/dL Specimen Performing Laborator [facility] [address] [place] [address] * HIV AG&AB SCREEN W/ CONFIRMATION (12/29/2017 12:43 PM) Component Value Ref Range HIV4G RESULTS NONREACTIVE NR Specimen Performing Laborator y [facility] [address] [place] [address] * HEMOGLOBIN A1C (12/29/2017 12:43 PM) Component Value Ref Range HEMOGLOBIN, A1C 11.6(H) Comment: The use of HbA1c to monitor glycemic status is based on normal hemoglobin and HbA composition. This test should not be used in patients with abnormal hemoglobin that affects the half life of the red blood cell or the in vivo glycation rates. 4.0 - 6.4 % EST AVG GLUCOSE 286(H) <126 MG/DL Specimen Performing Laborator y [facility] [address] [place] [address] in this encounter Visit Diagnoses Diagnosis Depression with anxiety - Pr imary Dysthymic disorder Type 2 diabetes mellitus wit h hemoglobin A1c goal of 7.0%-8.0% ([facility]) POSTSURGICAL HYPOTHYROID Postsurgical hypothyroidism HTN, goal below 130/80 Unspecified essential hypertension DM type 2 nursing care encou nter ([facility]) Type II or unspecified type diabetes mellitus without mention of complication, not stated as uncontrolled Neuropathy Mononeuritis of unspecified site Fibromyalgia Mylagia and myositis, unspecified Gastroesophageal reflux dise ase with esophagitis Stress reaction Unspecified acute reaction to stress Kidney disease, chronic, sta ge III (GFR 30-59 ml/min) Chronic kidney disease, Stage III (moderate) Body mass index (BMI) of 50. 0 to 59.9 in adult ([facility]) Special screening examinatio n for viral and chlamydial disease AMAN (obstructive sleep apnea ) Obstructive sleep apnea (adult) (pediatric) in this encounter Insurance Payer Benefit Plan / Group Subscriber ID Type Phone Address [facility] [employer] [facility] [employer] [facility] EXTRA [id number] [phone] [facility] [place] [address] BEHAVIORAL MENTAL HEALTH INS [facility] [employer] [id number] as of this encounter
--- OUTSIDE RECORDS SUMMARY | 2023-06-01 06:05 | External Medical Summary ---
Author Name Unknown Address [address] [place] [address] Phone Organization K0G:TRIN[facility] [address] [place] [address] [place] [address] Laboratory Report Ordering Provider Test Date Status PRINCE KASI 12/29/2017 12:43:00 Final Observation Date Value Abnormality Reference Status Phosphate 12/29/2017 14:05 3.3 2.5-4.8 Fin al Performing Location [facility] [address] [place] [address]
--- OUTSIDE RECORDS SUMMARY | 2023-06-01 06:05 | External Medical Summary | Summary of Care ---
Author Name Unknown Organization [place] [address] Phone Care Team Providers Care Sizer Hand Name Role Phone Teddy De Oliveira MD Primary Care Provider [phone] Encounter Details Date Type Department Care Team Description 12/04/2017 Scan Encounter Unspecified Department <No scans attached> [...] goal of 7.0%-8.0% ([facility]) Use 3 times daily (for Lantus twice [...] of 7.0%-8.0% ([facility]) Inject 66 Units under the [...] Active metFORMIN ER (GLUCOPHAGE XR) 500 MG [id number]:Uncon trolled type 2 diabetes mellitus with stage [...] SOPNIndications:DM type 2, goal: symptom mgmt ([facility]) Inject 1.8 mg under the skin daily. If unable to tolerate, decrease dose back to 1.2 mg daily 2 Pre-filled Pen Syringe Dosing Unit 11 11/02/2017 Active as of this encounter Active Problems Problem Noted Date Controlled substance agreement signed Body mass index (BMI) of 50.0 to 59.9 in adult ([facility]) 06/27/2017 Overview: Per Obesity protocol #1 - Per Obesity Taxonomy ICD-10 update of inactive term Uncontrolled type 2 diabetes mellitus with stage 3 chronic kidney disease, with long-term current use of insulin ([facility]) 05/24/2017 Gastroesophageal reflux disease with eso phagitis 03/04/2017 Restless legs syndrome 03/25/2016 Fibromyalgia 02/02/2016 Abnormality of gait 02/02/2016 Type 2 diabetes mellitus with hemoglobin A1c goal of 7.0%-8.0% ([facility]) 10/14/2014 Overview: ICD-10 update of [...] index (BMI) of 40.0-44.9 in adult ([facility] ) 08/17/2010 05/24/2017 Obesity, morbid (more than 1 00 lbs over ideal weight or BMI > 40) ([facility]) 12/23/2009 06/30/2017 Overview: Per Obesity Taxonomy ICD-10 update of inactive term HTN, GOAL BELOW 130/80 10/22/2009 2 Overview: Per HTN Taxonomy. Pneumonia in aspergillosis ([facility]) 09/14/2009 02/15/2017 Venous thrombosis 09/14/2009 10/15/2010 Respiratory failure, acute ([facility]) 09/14/2009 02/15/2017 Spontaneous pneumothorax 09/14/2009 017 Dysuria 08/23/2009 02/15/2017 Type 2 diabetes mellitus wit h hemoglobin A1c goal of less than 7.0% ([facility]) 07/10/2009 10/14/2014 Overview: Modified per Diabetes protocol #14. ICD-10 update of inactive term Dyslipidemia, goal LDL below 160 08/16/2007 09/04/2009 Overview: Per Lipid Taxonomy. HTN, goal below 140/90 04/09/2003 0 Overview: Per HTN Taxonomy. DM type 2, not at goal ([facility]) 05/29/2002 Overview: Modified per Diabetes protocol #14. TENOSYNOVITIS FOOT-ANKLE 12/26/2001 017 Goiter 01/13/2000 06/28/2011 BACKACHE NOS 08/26/1999 05/24/2017 OBESITY, UNSPECIFIED 08/26/1999 12/23/2009 Overview: Per Obesity Taxonomy Perforation of intestine ([facility]) 0 02/15/2017 Overview: COLON Diverticulitis [...] Pharmacy Sp, [facility] [address] [place] [address] [phone] Uncontrolled type 2 diabetes mellitus with stage 3 chronic kidney disease, with long-term current use of insulin (HCC)* 01/10/2018 Office Visit Podiatry Frances Arias, ELE[place] [address] [place] [address] [phone] 01/18/2018 Pharmacy Pharmacy , [facility] [address] [facility] [place] [address] [phone] 01/26/2018 Office Visit Family Practice Teddy De Oliveira MD [address] [place] [address] [phone] 2018 Office Visit Sleep Disorders Celsa Tafoya CRNP [address] [place] [address] [phone] Nurse [facility] [address] [place] [address] [phone] Health Maintenance Due Date Last Done Comments Yearly B-12 1955 DIABETES-EYE EXAM 02/24/2011 02/24/2010 (Do ne elsewhere), 12/18/2009, 02/18/2008 (Done elsewhere) BREAST CANCER SCREENING DISC USSION YEARLY AGES 40-75 05/09/2016 05/09/2015, 07/12/2014, 07/04/2014, Additional history exists PAP SMEAR-EVERY 3 YRS,AGES 21-65 05/11/2016 05/11/2013, 03/01/2008, 10/19/2006, Additional history exists CKD GFR USE SMARTSET 43995 06/30/201812/29, 12/26/2017, 07/14/2017, Additional history exists DIABETES-HGBA1C EVERY 6 MONTHS 06/30/2018 0 12/29/2017, 07/14/2017, 05/05/2017, Additional history exists DIABETES-LDL EVERY 12 MONTHS 07/14/2018, 10/28/2016, 06/24/2016, Additional history exists CKD HGB USE SMARTSET 92890 12/26/201812/26, 05/21/2017, 05/05/2017, Additional history exists DIABETES-URINE MICROALBUMIN EVERY 12 MONTHS 12/26/2018 12/26/2017, 05/21/2017, 05/05/2017, Additional history exists CKD PHOS USE SMARTSET 93997 12/29/2018 04/0 01/2018, 08/26/2009, 08/25/2009, Additional history exists DIABETES-FOOT EXAM 12/29/2018 12/29/2017, 0 10/21/2016, 12/11/2015, Additional history exists PNEUMOCOCCAL 19-64 MEDIUM RISK Completed 08/22/2009 , 06/15/2006 Influenza Vaccine (FLU shot) Completed , 06/24/2016, 07/24/2015, Additional history exists as of this encounter Implants Not on fileas of this encounter Insurance Payer Benefit Plan / Group Subscriber ID Type Phone Address [facility] [employer]TRA [id number] [phone] [place] [address] BEHAVIORAL MENTAL HEALTH INS [facility] [id number] as of this encounter
--- OUTSIDE RECORDS SUMMARY | 2023-06-01 06:05 | External Medical Summary ---
Author Name Unknown Address [address] [place] [address] Phone Organization K0G:[facility]IN[facility] [address] [address] Laboratory Report Ordering Provider Test Date Status PRINCE KASI 12/29/2017 12:43:00 Final Observation Date Value Abnormality Reference Status BUN 12/29/2017 14:05 24 Above high normal 6-20 Final Creatinine 12/29/2017 14:05 1.1 Above high normal 0.5- 1.0 Final Performing Location [facility] [employer] [address] [place] [address]
--- OUTSIDE RECORDS SUMMARY | 2023-06-01 06:05 | External Medical Summary ---
Author Name Unknown Address [address] [id number] Phone Organization K01:[facility] [address] [id number] Laboratory Report Ordering Provider Test Date Status PRINCE KASI 12/29/2017 12:43:00 Final Observation Date Value Abnormality Reference Status HIV 1+2 Ab+HIV1 p24 Ag [Presence] in Serum or Plasma by Immunoassay 12/30/2017 10:49 NONREACTIVE NR Fi nal Performing Location [facility] [address] [facility] [address]
--- OUTSIDE RECORDS SUMMARY | 2023-06-01 06:05 | External Medical Summary | Summary of Care ---
Author Name Unknown Organization [place] [address] Phone Care Team Providers Care Practice Administrator Name Role Phone Teddy De Oliveira MD Primary Care Provider [phone] Reason for Visit * Reason Comments eRx-Medication Refill Encounter Details Date Type Department Care Team Description 10/19/2017 Refill Family Practice [facility] [address] [place] [address] Teddy De Oliveira MD [address] [place] [address] [phone] HTN, goal below 140/80* Allergies Active Allergy Reactions Severity Noted Date [...] MUSCLE SPASM 30 Tab 2 10/21/2016 Active liraglutide (VICTOZA) 18 MG/3ML SOPNIndications:DM type 2, goal: symptom mgmt (HCC) Inject 1.8 mg under the skin daily. If unable to tolerate, decrease dose back to 1.2 mg daily 2 Pre-filled Pen Syringe Dosing Unit 11 01/20/2017 Active Insulin Pen Needle (BD PEN NEEDLE SHORT U/F) 31G X 8 MMIndications:Type 2 diabetes mellitus with hemoglobin A1c goal of 7.0%-8.0% ([facility]) Use 3 times daily (for Lantus twice a day and Victoza daily) and as needed 100 Box Dosing Unit 11 03/03/2017 Active docusate sodium (STOOL SOFTENER) 100 MG Capsule Take 100 mg by mouth 2 times a day as needed for Constipation. Active hydrochlorothiazide (HYDRODIURIL) 12.5 MG CapsuleIndications: HTN, goal below 130/80 Take 1 Cap by mouth daily. 90 Cap 1 03/31/2017 Active insulin glargine (INSULIN GLARGINE) 100 UNIT/ML SOPNIndications:Typ e 2 diabetes mellitus with hemoglobin A1c goal of 7.0%-8.0% ([facility]) Inject 66 Units under the skin 2 times a day. Titrate by 2 units until SBGM <150 2 Pre-filled Pen Syringe Dosing Unit 11 05/24/2017 Active Nortriptyline HCl 50 MG CapsuleIndications: Fibromyalgia TAKE ONE CAPSULE BY MOUTH AT BEDTIME 30 Cap 11 07/08/2017 Active traMADol (ULTRAM) 50 MG TabletIndications:F ibromyalgia TAKE ONE TABLET BY MOUTH EVERY SIX HOURS NEEDED FOR PAIN 90 Tab 0 07/14/2017 Active clonazePAM (KLONOPIN) 0.5 MG TabletIndications:A nxiety state Take 1 Tab by mouth 2 times a day. 180 Tab 1 07/14/2017 Active sertraline (ZOLOFT) 100 MG TabletIndications:D epression with anxiety Take 1 Tab by mouth daily. 90 Tab 1 07/14/2017 Active metoprolol tartrate (LOPRESSOR) 25 MG TabletIndications:H TN, goal below 130/80 Take 1 Tab by mouth 2 times a day. 180 Tab 1 07/14/2017 Active levothyroxine (LEVOXYL) 200 MCG TabletIndications:P ostsurgical hypothyroidism Take 1 Tab by mouth daily. (at least 30 min prior to breakfast or other meds) 90 Tab 1 07/14/2017 Active metFORMIN ER (GLUCOPHAGE XR) 500 MG [id number]:Unc ontrolled type 2 diabetes mellitus with stage 3 chronic kidney disease, with long-term current use of insulin ([facility]) Take 1 Tab by mouth daily. 30 Tab 11 07/14/2017 Active levothyroxine (LEVOXYL) 25 MCG TabletIndications:P ostsurgical hypothyroidism TAKE ONE TABLET BY MOUTH IN THE MORNING AT LEAST 30 MINUTES PRIOR TO BREAKFAST OR OTHER MEDS 90 Tab 0 08/02/2017 Active gabapentin (NEURONTIN) 100 MG CapsuleIndications: DM type 2 with diabetic peripheral neuropathy ([facility]) Take 1 Cap by mouth 3 times a day. 90 Cap 2 08/29/2017 Active rOPINIRole (REQUIP) 1 MG TabletIndications:R estless legs syndrome TAKE ONE TABLET BY MOUTH AT BEDTIME 30 Tab 5 09/29/2017 Active lisinopril (PRINIVIL) 10 MG TabletIndications:H TN, goal below 140/80 TAKE ONE TABLET BY MOUTH ONE TIME DAILY 90 Tab 1 10/21/2017 Active lisinopril (PRINIVIL) 10 MG TabletIndications:H TN, goal below 140/80 TAKE ONE TABLET BY MOUTH DAILY 90 Tab 0 08/02/2017 8 Discontinued as of this encounter Active Problems Problem Noted Date Controlled substance agreement signed Body mass index (BMI) of 50.0 to 59.9 in adult ([facility]) 06/27/2017 Overview: Per Obesity protocol #1 - Per Obesity Taxonomy ICD-10 update of inactive term Uncontrolled type 2 diabetes mellitus with stage 3 chronic kidney disease, with long-term current use of insulin ([facility]) 05/24/2017 Gastroesophageal reflux disease with eso phagitis 03/04/2017 Restless legs syndrome 03/25/2016 Fibromyalgia 02/02/2016 Abnormality of gait 02/02/2016 Type 2 diabetes mellitus with hemoglobin A1c goal of 7.0%-8.0% ([facility]) 10/14/2014 Overview: ICD-10 update of inactive term Outlook filter in place 08/19/2014 History of pulmonary [...] time <89% 6:21 hours, ITNY 47 DHC Postsurgical hypothyroidism 06/16/2011 Depression with [...] (BMI) of 40.0-44.9 in adult ([facility] ) 08/17/2010 05/24/2017 Obesity, morbid (more than 1 00 lbs over ideal weight or BMI > 40) ([facility]) 12/23/2009 06/30/2017 Overview: Per Obesity Taxonomy ICD-10 update of inactive term HTN, GOAL BELOW 130/80 10/22/2009 2 Overview: Per HTN Taxonomy. Pneumonia in aspergillosis ([facility]) 09/14/2009 02/15/2017 Venous thrombosis 09/14/2009 10/15/2010 Respiratory failure, acute ([facility]) 09/14/2009 02/15/2017 Spontaneous pneumothorax 09/14/2009 017 Dysuria 08/23/2009 02/15/2017 Type 2 diabetes mellitus wit h hemoglobin A1c goal of less than 7.0% ([facility]) 07/10/2009 10/14/2014 Overview: Modified per Diabetes protocol #14. ICD-10 update of inactive term Dyslipidemia, goal LDL below 160 08/16/2007 09/04/2009 Overview: Per Lipid Taxonomy. HTN, goal below 140/90 04/09/2003 0 Overview: Per HTN Taxonomy. DM type 2, not at goal ([facility]) 05/29/2002 Overview: Modified per Diabetes [...] Telephone Encounter - Ricardo Martinez MD - 10/21/2017 5:11 PM EST Signed Prescriptions: Disp Refills lisinopril (PRINIVIL) 10 MG Tablet 90 Tab 1 Sig: TAKE ONE TABLET BY MOUTH ONE TIME DAILY Authorizing Provider: RICARDO MARTINEZ * Telephone Encounter - Anne Mirza LPN - 10/21/2017 8:46 AM EST Pending Prescriptions: Disp Refills lisinopril (PRINIVIL) 10 MG Tablet [Pharm*90 Tab 1 Sig: TAKE ONE TABLET BY MOUTH ONE TIME DAILY * Telephone Encounter - Neelam Zarco LPN - 10/21/2017 6:36 AM EST Pending Prescriptions: Disp Refills lisinopril (PRINIVIL) 10 MG Tablet [Pharm*90 Tab 1 Sig: TAKE ONE TABLET BY MOUTH ONE TIME DAILY * Telephone Encounter - Neelam Zarco LPN - 10/21/2017 6:35 AM EST Formatting of this note may be different from the original. Pending Prescriptions: Disp Refills lisinopril (PRINIVIL) 10 MG Tablet [Pharm*90 Tab 1 Sig: TAKE ONE TABLET BY MOUTH ONE TIME DAILY Last Office Visit: 08/29/2017 Next Office Visit: 11/15/2017 Scheduled Provider(s): Teddy De Oliveira MD Last date the medication was ordered: 08/02/17 Patient Active Problem List Diagnosis Code Other allergic rhinitis J30.89 ADVANCE DIRECTIVE INFORMATION Primary localized osteoarthrosis, lower leg M17.10 History of heparin-induced thrombocytopenia Z86.2 DYSLIPIDEMIA, GOAL LDL BELOW 100 E78.5 Depression with anxiety F41.8 Postsurgical hypothyroidism E89.0 Hypoxemia R09.02 ELISSA (obstructive sleep apnea) G47.33 Venous insufficiency I87.2 Kidney disease, chronic, stage III (GFR 30-59 ml/min) N18.3 HTN, goal below 130/80 I10 History of pulmonary embolus (PE) Z86.711 Statin intolerance Z78.[address] Z95.828 Type 2 diabetes mellitus with hemoglobin A1c goal of 7.0%-8.0% ([facility]) E11.9 Fibromyalgia M79.7 Abnormality of gait R26.9 Restless legs syndrome G25.81 Gastroesophageal reflux disease with esophagitis K21.0 Uncontrolled type 2 diabetes mellitus with stage 3 chronic kidney disease, with long-term current use of insulin ([facility]) E11.22, E11.65, N18.3, Z79.4 Body mass index (BMI) of 50.0 to 59.9 in adult ([facility]) Z68.43 Controlled substance agreement signed Z79.899 Labs: CREATININE(mg/dL) Nessa Dt/Tm Resulted Value Status 07/14/17 12:35P 07/14/17 1.1* FINAL POTASSIUM(mmol/L) Nessa Dt/Tm Resulted Value Status 07/14/17 12:35P 07/14/17 5.0 FINAL TSH(uIU/mL) Nessa Dt/Tm Resulted Value Status 03/03/17 12:38P 03/03/17 0.60 FINAL LDL (DIRECT MEASURE)(mg/dL) Nessa Dt/Tm Resulted Value Status 07/14/17 12:35P 07/14/17 109 FINAL 10/28/16 1:24P 10/28/16 119 FINAL ALT(U/L) Nessa Dt/Tm Resulted Value Status 07/14/17 12:35P 07/14/17 22 FINAL Hemoglobin AIC Results: HEMOGLOBIN, A1C(%) Nessa Dt/Tm Resulted Value Status 07/14/17 12:35P 07/14/17 9.3* FINAL HEMOGLOBIN, [id number] LAB(%) Nessa Dt/Tm Resulted Value Status 05/05/17 05/06/17 9.7* FINAL HEMOGLOBIN, A1C(%) Nessa Dt/Tm Resulted Value Status 03/03/17 12:38P 03/03/17 9.3* FINAL in this encounter Plan of Treatment Upcoming Encounters Date Type Specialty Care Team Description 11/15/2017 Office Visit Family Practice Teddy De Oliveira MD [address] [place] [address] [phone] 01/10/2018 Office Visit Podiatry Frances Arias DPM [address] [place] [address] [phone] 2018 Office Visit Sleep Disorders Celsa Tafoya CRNP [address] [place] [address] [phone] Marquez Nurse Sleep Disorders [address] [place] [address] [phone] Health Maintenance Due Date Last Done Comments Yearly B-12 1955 CKD PHOS USE SMARTSET 74724 02/24/2010 12/0 09/2008, 08/25/2009, 08/25/2009, Additional history exists DIABETES-EYE EXAM 02/24/2011 02/24/2010 (Do ne elsewhere), 12/18/2009, 02/18/2008 (Done elsewhere) BREAST CANCER SCREENING DISC USSION YEARLY AGES 40-75 05/09/2016 05/09/2015, 07/12/2014, 07/04/2014, Additional history exists PAP SMEAR-EVERY 3 YRS,AGES 21-65 05/11/2016 05/11/2013, 03/01/2008, 10/19/2006, Additional history exists DIABETES-FOOT EXAM 10/21/2017 10/21/2016, 0 12/11/2015, 02/22/2014, Additional history exists CKD GFR USE SMARTSET 73689 01/12/201807/14, 05/21/2017, 05/05/2017, Additional history exists DIABETES-HGBA1C EVERY 6 MONTHS 01/12/2018 1 , 05/05/2017, 03/03/2017, Additional history exists CKD HGB USE SMARTSET 85358 05/21/201805/21, 05/05/2017, 09/23/2016, Additional history exists DIABETES-URINE MICROALBUMIN EVERY 12 MONTHS 05/21/2018 05/21/2017, 05/05/2017, 03/03/2017, Additional history exists DIABETES-LDL EVERY 12 MONTHS 07/14/2018, 10/28/2016, 06/24/2016, Additional history exists COLONOSCOPY-EVERY 10 YRS AGE S 50-75 02/17/2026 02/18/2016, 01/28/2006, 10/27/2005 PNEUMOCOCCAL 19-64 MEDIUM RISK Completed 08/22/2009 , 06/15/2006 Influenza Vaccine (FLU shot) Completed , 06/24/2016, 07/24/2015, Additional history exists as of this encounter Implants Not on fileas of this encounter Visit Diagnoses Diagnosis HTN, goal below 140/80 - Nicolette emi Unspecified essential hypertension in this encounter Insurance Payer Benefit Plan / Group Subscriber ID Type Phone Address [facility] [employer] [facility] [employer] [facility] EXTRA [id number] [phone] [facility] [place] [address] BEHAVIORAL MENTAL HEALTH INS [facility] [id number] as of this encounter
--- OUTSIDE RECORDS SUMMARY | 2023-06-01 06:05 | External Medical Summary ---
Author Name Unknown Address [facility] [place] [address] Phone Organization K01:[place] [address] [place] [id number] Laboratory Report Ordering Provider Test Date Status PRINCE AKSI 12/29/2017 12:43:00 Final Observation Date Value Abnormality Reference Status HbA1C 12/29/2017 19:55 11.6 Above high normal 4.0-6 .4 Final Performing Location [facility] [address] [facility] [facility] [address]
--- OUTSIDE RECORDS SUMMARY | 2023-06-01 06:05 | External Medical Summary | Summary of Care ---
Author Name Unknown Organization [place] [address] Phone Care Team Providers Care Liquid Yeast Supervisor Name Role Phone Teddy De Oliveira MD Primary Care Provider Reason for Visit * Reason Comments APPOINTMENT Encounter Details Date Type Department Care Team Description 01/04/2018 Pharmacy Pharmacy, [facility] [address] [address] Sp, [facility] [address] [address] [phone] Uncontrolled type 2 diabetes mellitus with stage 3 chronic kidney disease, with long-term current use of insulin ([facility])* Allergies Active Allergy Reactions Severity Noted [...] hemoglobin A1c goal of 7.0%-8.0% ([facility]) Use 3 times daily (for Lantus twice a day and Victoza daily) and as needed 100 Box Dosing Unit 11 03/03/2017 Active docusate sodium (STOOL SOFTENER) 100 MG Capsule Take 100 mg by mouth 2 times a day as needed for Constipation. Active insulin glargine (INSULIN GLARGINE) 100 UNIT/ML SOPNIndications:Type 2 diabetes mellitus with hemoglobin A1c goal of 7.0%-8.0% ([facility]) Inject 66 Units under the skin [...] Active metFORMIN ER (GLUCOPHAGE XR) 500 MG [id number]:Uncon trolled type 2 diabetes mellitus with stage 3 chronic kidney disease, with long-term current use of insulin ([facility]) Take 1 Tab by mouth daily. [...] MG/3ML SOPNIndications:DM type 2, goal: symptom mgmt ([facility]) Inject 1.8 mg under the skin [...] 10/14/2014 Overview: ICD-10 update of inactive term [place] filter in place 08/19/2014 History of pulmonary [...] Overview: Per Obesity Taxonomy Perforation of intestine ([facility]) 0 02/15/2017 Overview: COLON Diverticulitis as [...] this encounter Progress Notes * Dea Vega, [facility] - 01/04/2018 11:45 AM EDT Agree with plan Dea Vega, PharmD, [facility] Clinical Pharmacist 01/04/2018, 11:45 AM * Mar Simeon, ELISSA - 01/04/2018 10:46 AM EDT Pharmacist Disease Management Service 01/04/2018 Name: Stephanie Antione [facility] [address] [place] [address] phone: There are no phone numbers on file. Called patient to set up appointment for diabetes education per physician referral. [facility] clinic left a message for patient to call to discuss scheduling a Diabetes appointment, [facility] clinic to follow-up in 2 weeks to schedule,sending out an invite letter . Hemoglobin AIC Results: HEMOGLOBIN, A1C(%) Nessa Dt/Tm Resulted Value Status 12/29/17 12:43P 12/29/17 11.6* FINAL 07/14/17 12:35P 07/14/17 9.3* FINAL HEMOGLOBIN, [id number] LAB(%) Nessa Dt/Tm Resulted Value Status 05/05/17 05/06/17 9.7* FINAL goal A1c per refferal: Glucose Results: GLUCOSE(mg/dL) Nessa Dt/Tm Resulted Value Status 12/29/17 12:43P 12/29/17 463* FINAL GLUCOSE-OUTSIDE LAB(MG/DL) Nessa Dt/Tm Resulted Value Status 12/26/17 12/28/17 527* FINAL GLUCOSE, UA(no units) Nessa Dt/Tm Resulted Value Status 08/29/17 08/29/17 neg FINAL ELISSA [facility] 01/04/2018, 10:46 AM in this encounter Plan of Treatment Upcoming Encounters Date Type Specialty Care Team Description 01/04/2018 Pharmacy Pharmacy , [facility] [address] [facility], [place] [address] [phone] Uncontrolled type 2 diabetes mellitus with stage 3 chronic kidney disease, with long-term current use of insulin (HCC)* 01/10/2018 Office Visit Podiatry Frances Arias DPM [address] [place] [address] 01/18/2018 Pharmacy Pharmacy Sp, [facility] [address] [place] [address] [phone] 01/26/2018 Office Visit Family Practice Teddy De Oliveira MD [address] [place] [address] [phone] 2018 Office Visit Sleep Disorders Celsa Tafoya CRNP [address] [place] [address] [phone] Nurse Mar[facility] [address] [place] [address] [phone] Health Maintenance Due Date Last Done Comments Yearly B-12 1955 DIABETES-EYE EXAM 02/24/2011 02/24/2010 (Do ne elsewhere), 12/18/2009, 02/18/2008 (Done elsewhere) BREAST CANCER SCREENING DISC USSION YEARLY AGES 40-75 05/09/2016 05/09/2015, 07/12/2014, 07/04/2014, Additional history exists PAP SMEAR-EVERY 3 YRS,AGES 21-65 05/11/2016 05/11/2013, 03/01/2008, 10/19/2006, Additional history exists CKD GFR USE SMARTSET 41500 06/30/201812/29, 12/26/2017, 07/14/2017, Additional history exists DIABETES-HGBA1C EVERY 6 MONTHS 06/30/2018 0 12/29/2017, 07/14/2017, 05/05/2017, Additional history exists DIABETES-LDL EVERY 12 MONTHS 07/14/2018, 10/28/2016, 06/24/2016, Additional history exists CKD HGB USE SMARTSET 13984 12/26/201812/26, 05/21/2017, 05/05/2017, Additional history exists DIABETES-URINE MICROALBUMIN EVERY 12 MONTHS 12/26/2018 12/26/2017, 05/21/2017, 05/05/2017, Additional history exists CKD PHOS USE SMARTSET 13039 12/29/2018 04/0 01/2018, 08/26/2009, 08/25/2009, Additional history [...] current use of insulin (HCC) - Primary in this encounter Insurance Payer Benefit Plan / Group Subscriber ID Type Phone Address [facility] [employer] [id number] [phone] [place] [address] BEHAVIORAL MENTAL HEALTH INS [facility] SOLUTIONS [id number] as of this encounter
--- OUTSIDE RECORDS SUMMARY | 2023-06-01 06:05 | External Medical Summary | Summary of Care ---
Author Name Unknown Organization [place] [address] Phone Care Team Providers Care Hydrodynamics Professor Name Role Phone Teddy De Oliveira MD Primary Care Provider [phone] Encounter Details Date Type Department Care Team Description 12/28/2017 Orders Only Family Practice [facility] [address] [facility] [address] Teddy De Oliveira MD [address] [place] [address] [phone] Allergies Active Allergy Reactions Severity Noted Date [...] for Constipation. Active hydrochlorothiazide (HYDRODIURIL) 12.5 MG CapsuleIndications:HT N, [...] 11 07/08/2017 Active traMADol (ULTRAM) 50 MG TabletIndications:Fib romyalgia TAKE ONE TABLET BY MOUTH EVERY SIX HOURS NEEDED FOR PAIN 90 Tab 0 07/14/2017 Active clonazePAM (KLONOPIN) 0.5 MG TabletIndications:Anx iety state Take 1 Tab by mouth 2 times a day. 180 Tab 1 07/14/2017 Active sertraline (ZOLOFT) 100 MG TabletIndications:Dep ression with anxiety Take 1 Tab by mouth [...] Active metFORMIN ER (GLUCOPHAGE XR) 500 MG [id number]:Uncon trolled type 2 diabetes mellitus with stage 3 chronic kidney disease, with long-term current use of insulin ([facility]) Take 1 Tab by mouth daily. 30 Tab 11 07/14/2017 Active levothyroxine (LEVOXYL) 25 MCG TabletIndications:Pos tsurgical hypothyroidism TAKE ONE TABLET BY MOUTH IN THE MORNING AT LEAST 30 MINUTES PRIOR TO BREAKFAST OR OTHER MEDS 90 Tab 0 08/02/2017 Active gabapentin (NEURONTIN) 100 MG CapsuleIndications:DM type 2 with diabetic peripheral neuropathy (HCC) Take 1 Cap by mouth 3 times a day. 90 Cap 2 08/29/2017 Active rOPINIRole (REQUIP) 1 MG TabletIndications:Res tless [...] Encounters Date Type Specialty Care Team Description 12/29/2017 Office Visit Family Practice Teddy De Oliveira MD [address] [place] [address] [phone] 01/10/2018 Office Visit Podiatry Frances Arias DPM [address] [place] [address] [phone] 2018 Office Visit Sleep Disorders Celsa Tafoya CRNP [address] [place] [address] [phone] Marquez, Nurse Sleep Disorders [address] [place] [address] [phone] Pending Results Name Priority Associated Diagnoses Date/Ti me CHEMISTRY-OUTSIDE Routine 12/26/2017 12:00 AM EDT Health Maintenance Due Date Last Done Comments Yearly B-12 1955 CKD PHOS USE SMARTSET 56974 08/26/2010 12/0 09/2008, 08/25/2009, 08/25/2009, Additional history exists DIABETES-EYE EXAM 02/24/2011 02/24/2010 (Do ne elsewhere), 12/18/2009, 02/18/2008 (Done elsewhere) BREAST CANCER SCREENING DISC USSION YEARLY AGES 40-75 05/09/2016 05/09/2015, 07/12/2014, 07/04/2014, Additional history exists PAP SMEAR-EVERY 3 YRS,AGES 21-65 05/11/2016 05/11/2013, 03/01/2008, 10/19/2006, Additional history exists DIABETES-FOOT EXAM 10/21/2017 10/21/2016, 0 12/11/2015, 02/22/2014, Additional history exists CKD GFR USE SMARTSET 97746 01/12/201807/14, 05/21/2017, 05/05/2017, Additional history exists DIABETES-HGBA1C EVERY 6 MONTHS 01/12/2018 1 , 05/05/2017, 03/03/2017, Additional history exists CKD HGB USE SMARTSET 92490 05/21/201805/21, 05/05/2017, 09/23/2016, Additional history exists DIABETES-URINE MICROALBUMIN EVERY 12 MONTHS 05/21/2018 05/21/2017, 05/05/2017, 03/03/2017, Additional history exists DIABETES-LDL EVERY 12 MONTHS 07/14/2018, 10/28/2016, 06/24/2016, Additional history exists PNEUMOCOCCAL 19-64 MEDIUM RISK Completed 08/22/2009 , 06/15/2006 Influenza Vaccine (FLU shot) Completed , 06/24/2016, 07/24/2015, Additional history exists as of this encounter Implants Not on fileas of this encounter Insurance Payer Benefit Plan / Group Subscriber ID Type Phone Address [facility] Coverity O EXTRA [id number] [phone] [facility] [place] [phone] BEHAVIORAL MENTAL HEALTH INS [employer] [id number] as of this encounter
--- OUTSIDE RECORDS SUMMARY | 2023-06-01 06:05 | External Medical Summary | Summary of Care ---
Author Name Unknown Organization [place] [address] Phone Care Team Providers Care Cardiology Clinical Consultant Name Role Phone Teddy De Oliveira MD Primary Care Provider [phone] Reason for Visit * Reason Comments STATUS CHECK Encounter Details Date Type Department Care Team Description 01/18/2018 Pharmacy Pharmacy, [facility] [address] [place] [address] Sp, [facility] [address] [place] [address] [phone] Type 2 diabetes mellitus with hemoglobin A1c goal of 7.0%-8.0% ([facility])* Allergies Active Allergy Reactions Severity Noted [...] goal of 7.0%-8.0% ([facility]) Use 3 times daily (for Lantus twice [...] Active metFORMIN ER (GLUCOPHAGE XR) 500 MG [id number]:Uncon trolled type 2 diabetes mellitus with stage 3 chronic kidney disease, with long-term current use of insulin ([facility]) Take 1 Tab by mouth daily. 30 [...] this encounter Progress Notes * Dea Vega, [facility] - 01/18/2018 1:36 PM EDT Agree with plan Dea Vega, PharmD, [facility] Clinical Pharmacist 01/18/2018, 1:36 PM * Mar Simeon, ELISSA - 01/18/2018 1:34 PM EDT Patient loss her job and has no insurance-MTM will follow-up in 30 days to see if patient has acquired insurance. in this encounter Plan of Treatment Upcoming Encounters Date Type Specialty Care Team Description 01/18/2018 Pharmacy Pharmacy , [facility] [address] [place] [address] [phone] Type 2 diabetes mellitus with hemoglobin A1c goal of 7.0%-8.0% ([facility])* 01/26/2018 Office Visit Family Practice Teddy De Oliveira MD [address] [place] [address] [phone] 02/08/2018 Pharmacy Pharmacy , [facility] [address] [place] [address] [phone] 2018 Office Visit Sleep Disorders Celsa Tafoya CRNP [address] [place] [address] [phone] Nurse Marquez Sleep [facility] [address] [place] [address] [phone] Health Maintenance Due Date Last Done Comments Yearly B-12 1955 DIABETES-EYE EXAM 02/24/2011 02/24/2010 (Do ne elsewhere), 12/18/2009, 02/18/2008 (Done elsewhere) BREAST CANCER SCREENING DISC USSION YEARLY AGES 40-75 05/09/2016 05/09/2015, 07/12/2014, 07/04/2014, Additional history exists PAP SMEAR-EVERY 3 YRS,AGES 21-65 05/11/2016 05/11/2013, 03/01/2008, 10/19/2006, Additional history exists CKD GFR USE SMARTSET 76278 06/30/201812/29, 12/26/2017, 07/14/2017, Additional history exists DIABETES-HGBA1C EVERY 6 MONTHS 06/30/2018 0 12/29/2017, 07/14/2017, 05/05/2017, Additional history exists DIABETES-LDL EVERY 12 MONTHS 07/14/2018, 10/28/2016, 06/24/2016, Additional history exists CKD HGB USE SMARTSET 53037 12/26/201812/26, 05/21/2017, 05/05/2017, Additional history exists DIABETES-URINE MICROALBUMIN EVERY 12 MONTHS 12/26/2018 12/26/2017, 05/21/2017, 05/05/2017, Additional history exists CKD PHOS USE SMARTSET 59951 12/29/2018 04/0 01/2018, 08/26/2009, 08/25/2009, Additional history exists DIABETES-FOOT EXAM 12/29/2018 12/29/2017, 0 10/21/2016, 12/11/2015, Additional history exists PNEUMOCOCCAL 19-64 MEDIUM RISK Completed 08/22/2009 , 06/15/2006 Influenza Vaccine (FLU shot) Completed , 06/24/2016, 07/24/2015, Additional history exists as of this encounter Implants Not on fileas of this encounter Visit Diagnoses Diagnosis Type 2 diabetes mellitus wit h hemoglobin A1c goal of 7.0%-8.0% ([facility]) - Primary in this encounter Insurance Payer Benefit Plan / Group Subscriber ID Type Phone Address [facility] [employer] [facility] [employer] [facility] [id number] [phone] [place] [address] BEHAVIORAL MENTAL HEALTH INS [facility] [employer]UTIONS [id number] as of this encounter
--- OUTSIDE RECORDS SUMMARY | 2023-06-01 06:05 | External Medical Summary | Summary of Care ---
Author Name Unknown Organization [place] [address] Phone Care Team Providers Care Senior Care Provider Name Role Phone Teddy De Oliveira MD Primary Care Provider [phone] Reason for Visit * Reason Comments STATUS CHECK Encounter Details Date Type Department Care Team Description 01/18/2018 Pharmacy Pharmacy, [facility] [address] [facility] [place] [address] [address] [facility] [address] [place] [address] [phone] Type 2 diabetes mellitus with hemoglobin A1c goal of 7.0%-8.0% ([facility])* Allergies Active Allergy Reactions Severity [...] A1c goal of 7.0%-8.0% ([facility]) Use 3 times daily (for Lantus [...] goal of 7.0%-8.0% ([facility]) Inject 66 Units under the [...] Active metFORMIN ER (GLUCOPHAGE XR) 500 MG [id number]:Uncon trolled type 2 diabetes mellitus with stage [...] MG/3ML SOPNIndications:DM type 2, goal: symptom mgmt ([facility]) Inject 1.8 mg under the [...] to 59.9 in adult ([facility]) 06/27/2017 Overview: Per Obesity protocol #1 - Per Obesity Taxonomy ICD-10 update of inactive term Uncontrolled type 2 diabetes mellitus with stage 3 chronic kidney disease, with long-term current use of insulin ([facility]) 05/24/2017 Gastroesophageal reflux disease with eso phagitis 03/04/2017 Restless legs syndrome 03/25/2016 Fibromyalgia 02/02/2016 Abnormality of gait 02/02/2016 Type 2 diabetes mellitus with hemoglobin A1c goal of 7.0%-8.0% ([facility]) 10/14/2014 Overview: ICD-10 update of [...] mass index (BMI) of 40.0-44.9 in adult ([facility] ) 08/17/2010 05/24/2017 Obesity, morbid (more than 1 00 lbs over ideal weight or BMI > 40) ([facility]) 12/23/2009 06/30/2017 Overview: Per Obesity Taxonomy ICD-10 update of inactive term HTN, GOAL BELOW 130/80 10/22/2009 2 Overview: Per HTN Taxonomy. Pneumonia in aspergillosis ([facility]) 09/14/2009 02/15/2017 Venous thrombosis 09/14/2009 10/15/2010 Respiratory failure, acute ([facility]) 09/14/2009 02/15/2017 Spontaneous pneumothorax 09/14/2009 017 Dysuria 08/23/2009 02/15/2017 Type 2 diabetes mellitus wit h hemoglobin A1c goal of less than 7.0% ([facility]) 07/10/2009 10/14/2014 Overview: Modified per Diabetes protocol #14. ICD-10 update of inactive term Dyslipidemia, goal LDL below 160 08/16/2007 09/04/2009 Overview: Per Lipid Taxonomy. HTN, goal below 140/90 04/09/2003 0 Overview: Per HTN Taxonomy. DM type 2, not at goal ([facility]) 05/29/2002 Overview: Modified per Diabetes protocol #14. TENOSYNOVITIS FOOT-ANKLE 12/26/2001 017 Goiter 01/13/2000 06/28/2011 BACKACHE NOS 08/26/1999 05/24/2017 OBESITY, UNSPECIFIED 08/26/1999 12/23/2009 Overview: Per Obesity Taxonomy Perforation of intestine ([facility]) 0 02/15/2017 Overview: COLON Diverticulitis as [...] her meter with her. * Dea Vega [facility] - 01/18/2018 1:36 PM EDT Agree with plan Dea Vega, PharmD, [facility] Clinical Pharmacist 01/18/2018, 1:36 PM * Mar Simeon [facility] - 01/18/2018 1:34 PM EDT Patient loss her job and has no insurance-MTM will follow-up in 30 days to see if patient has acquired insurance. in this encounter Plan of Treatment Upcoming Encounters Date Type Specialty Care Team Description 01/18/2018 Pharmacy Pharmacy [facility] [address] [place], [place] [address] [phone] Type 2 diabetes mellitus with hemoglobin A1c goal of 7.0%-8.0% ([facility])* 01/26/2018 Office Visit Family Practice Teddy De Oliveira MD [address] [place] [address] [phone] 01/31/2018 Pharmacy Pharmacy Sp, [facility] [address] [facility] [place], [place] [address] [phone] 2018 Office Visit Sleep Disorders Celsa Tafoya CRNP [address] [place] [address] [phone] Marquez, Nurse Sleep Disorders [address] [place] [address] [phone] Health Maintenance Due Date Last Done Comments Yearly B-12 1955 DIABETES-EYE EXAM 02/24/2011 02/24/2010 (Do ne elsewhere), 12/18/2009, 02/18/2008 (Done elsewhere) BREAST CANCER SCREENING DISC USSION YEARLY AGES 40-75 05/09/2016 05/09/2015, 07/12/2014, 07/04/2014, Additional history exists PAP SMEAR-EVERY 3 YRS,AGES 21-65 05/11/2016 05/11/2013, 03/01/2008, 10/19/2006, Additional history exists CKD GFR USE SMARTSET 61670 06/30/201812/29, 12/26/2017, 07/14/2017, Additional history exists DIABETES-HGBA1C EVERY 6 MONTHS 06/30/2018 0 12/29/2017, 07/14/2017, 05/05/2017, Additional history exists DIABETES-LDL EVERY 12 MONTHS 07/14/2018, 10/28/2016, 06/24/2016, Additional history exists CKD HGB USE SMARTSET 69420 12/26/201812/26, 05/21/2017, 05/05/2017, Additional history exists DIABETES-URINE MICROALBUMIN EVERY 12 MONTHS 12/26/2018 12/26/2017, 05/21/2017, 05/05/2017, Additional history exists CKD PHOS USE SMARTSET 21875 12/29/201801/2018, 08/26/2009, 08/25/2009, Additional history exists DIABETES-FOOT EXAM 12/29/2018 12/29/2017, 0 10/21/2016, 12/11/2015, Additional history exists PNEUMOCOCCAL 19-64 MEDIUM RISK Completed 08/22/2009 , 06/15/2006 Influenza Vaccine (FLU shot) Completed , 06/24/2016, 07/24/2015, Additional history exists as of this encounter Implants Not on fileas of this encounter Visit Diagnoses Diagnosis Type 2 diabetes mellitus wit h hemoglobin A1c goal of 7.0%-8.0% ([facility]) - Primary in this encounter Insurance Payer Benefit Plan / Group Subscriber ID Type Phone Address [facility] [employer] [facility] [id number] [phone] [facility] [place] [address] BEHAVIORAL MENTAL HEALTH INS [facility] SOLUTIONS [id number] as of this encounter
--- OUTSIDE RECORDS SUMMARY | 2023-06-01 06:05 | External Medical Summary | Summary of Care ---
Author Name Unknown Organization [place] [address] Phone Care Team Providers Care Orthopedic Nurse Name Role Phone Teddy De Oliveira MD Primary Care Provider [phone] Reason for Visit * Reason Comments MEDICATION REFILL Encounter Details Date Type Department Care Team Description 11/01/2017 Refill Family Practice [facility] [address] [place] [address] Teddy De Oliveira MD [address] [place] [address] DM type 2, goal: symptom mgmt (HCC) Allergies Active Allergy Reactions Severity Noted [...] goal of 7.0%-8.0% ([facility]) Use 3 times daily (for Lantus [...] of 7.0%-8.0% ([facility]) Inject 66 Units under the skin [...] Active metFORMIN ER (GLUCOPHAGE XR) 500 MG [id number]:Uncon trolled type 2 diabetes mellitus with stage 3 chronic kidney disease, with long-term current use of insulin ([facility]) Take 1 Tab by mouth daily. [...] encounter Miscellaneous Notes * Telephone Encounter - Ralf Hopkins [facility] - 11/02/2017 8:19 AM EST Signed Prescriptions: Disp Refills liraglutide (VICTOZA) 18 MG/3ML SOPN 2 Pre-*11 Sig: Inject 1.8 mg under the skin daily. If unable to tolerate, decrease dose back to 1.2 mg daily Authorizing Provider: TEDDY DE OLIVEIRA Ordering User: RALF HOPKINS * Telephone Encounter - Sadie Honeycutt [facility] - 11/01/2017 1:17 PM EST Pending Prescriptions: Disp Refills liraglutide (VICTOZA) 18 MG/3ML SOPN 2 Pre-*11 Sig: Inject 1.8 mg under the skin daily. If unable to tolerate, decrease dose back to 1.2 mg daily Last Office Visit: 08/29/2017 Next Office Visit: 12/29/2017 Scheduled Provider(s): Teddy De Oliveira MD If no future appointments scheduled, and last appointment is greater than a year ago, please schedule patient for a follow-up appointment Last date the medication was ordered: 01/20/2017 Phone number(s): There are no phone numbers on file. Labs: ALT(U/L) Nessa Dt/Tm Resulted Value Status 07/14/17 12:35P 07/14/17 22 FINAL CREATININE(mg/dL) Nessa Dt/Tm Resulted Value Status 07/14/17 12:35P 07/14/17 1.1* FINAL LDL (DIRECT MEASURE)(mg/dL) Nessa Dt/Tm Resulted Value Status 07/14/17 12:35P 07/14/17 109 FINAL POTASSIUM(mmol/L) Nessa Dt/Tm Resulted Value Status 07/14/17 12:35P 07/14/17 5.0 FINAL TSH(uIU/mL) Nessa Dt/Tm Resulted Value Status 03/03/17 12:38P 03/03/17 0.60 FINAL Hemoglobin AIC Results: HEMOGLOBIN, A1C(%) Nessa Dt/Tm Resulted Value Status 07/14/17 12:35P 07/14/17 9.3* FINAL HEMOGLOBIN, [id number] LAB(%) Nessa Dt/Tm Resulted Value Status 05/05/17 05/06/17 9.7* FINAL HEMOGLOBIN, A1C(%) Nessa Dt/Tm Resulted Value Status 03/03/17 12:38P 03/03/17 9.3* FINAL in this encounter Plan of Treatment Upcoming Encounters Date Type Specialty Care Team Description 12/29/2017 Office Visit Family Practice Teddy De Oliveira MD [address] [place] [address] [phone] 01/10/2018 Office Visit Podiatry Frances Arias DPM [address] [place] [address] [phone] 2018 Office Visit Sleep Disorders Celsa Tafoya CRNP [address] [place] [address] [phone] Marquez Nurse Sleep Disorders [address] [address] [phone] Health Maintenance Due Date Last Done Comments Yearly B-12 1955 CKD PHOS USE SMARTSET 70936 02/24/2010 12/0 09/2008, 08/25/2009, 08/25/2009, Additional history exists DIABETES-EYE EXAM 02/24/2011 02/24/2010 (Do ne elsewhere), 12/18/2009, 02/18/2008 (Done elsewhere) BREAST CANCER SCREENING DISC USSION YEARLY AGES 40-75 05/09/2016 05/09/2015, 07/12/2014, 07/04/2014, Additional history exists PAP SMEAR-EVERY 3 YRS,AGES 21-65 05/11/2016 05/11/2013, 03/01/2008, 10/19/2006, Additional history exists DIABETES-FOOT EXAM 10/21/2017 10/21/2016, 0 12/11/2015, 02/22/2014, Additional history exists CKD GFR USE SMARTSET 31416 01/12/201807/14, 05/21/2017, 05/05/2017, Additional history exists DIABETES-HGBA1C EVERY 6 MONTHS 01/12/2018 1 , 05/05/2017, 03/03/2017, Additional history exists CKD HGB USE SMARTSET 68065 05/21/201805/21, 05/05/2017, 09/23/2016, Additional history exists DIABETES-URINE MICROALBUMIN EVERY 12 MONTHS 05/21/2018 05/21/2017, 05/05/2017, 03/03/2017, Additional history exists DIABETES-LDL EVERY 12 MONTHS 07/14/2018, 10/28/2016, 06/24/2016, Additional history exists PNEUMOCOCCAL 19-64 MEDIUM RISK Completed 08/22/2009 , 06/15/2006 Influenza Vaccine (FLU shot) Completed , 06/24/2016, 07/24/2015, Additional history exists as of this encounter Implants Not on fileas of this encounter Visit Diagnoses Diagnosis DM type 2, goal: symptom mgm t (HCC) Type II or unspecified type diabetes mellitus without mention of complication, not stated as uncontrolled in this encounter Insurance Payer Benefit Plan / Group Subscriber ID Type Phone Address [facility] [employer] [facility] [employer]TRA [id number] [phone] [facility] [place] [address] BEHAVIORAL MENTAL HEALTH INS [facility] SOLUT[facility] [id number] as of this encounter
--- OUTSIDE RECORDS SUMMARY | 2023-06-01 06:06 | External Medical Summary ---
Author Name Unknown Address [address] [place] [address] Phone Organization [id number] Ordaz [address] [facility] [place] [address] Laboratory Report Ordering Provider Test Date Status PRINCE KASI 07/14/2017 12:35:00 Final Observation Date Value Abnormality Reference Status BUN 07/14/2017 13:46 22 Above high normal 6-20 Final Creatinine 07/14/2017 13:46 1.1 Above high normal 0.5- 1.0 Final Performing Location [facility] Jeramie Ordaz [address] [place] [address]
--- OUTSIDE RECORDS SUMMARY | 2023-06-01 06:06 | External Medical Summary | Summary of Care ---
Author Name Unknown [place] [address] Phone Care Team Providers Care Motor Vehicle Dispatcher Name Role Phone Teddy De Oliveira MD Primary Care Provider Reason for Visit * Reason Comments URINARY TRACT INFECTION SYMPTOMS Ongoing for about 2 weeks. Frequency-but small amounts, burning, itching, foul smelling, tired, body aches, not sleeping to well for last couple of days, headache. No OTC meds. Encounter Details Date Type Department Care Team Description 08/29/2017 Office Visit Family Practice [facility] [address] [facility] [place] [address] Kriss Moyer PA-C [address] [facility] [address] Dysuria*;DM type 2 with diabetic peripheral neuropathy ([facility]);Kidney disease, chronic, stage III (GFR 30-59 ml/min);Type 2 diabetes mellitus with hemoglobin A1c goal of 7.0%-8.0% ([facility]);Uncontrolled type 2 diabetes mellitus with stage 3 chronic kidney disease, with long-term current use of insulin ([facility]);Body mass index (BMI) of 50.0 to 59.9 in adult ([facility]) Allergies Active Allergy [...] with hemoglobin A1c goal of 7.0%-8.0% (HCC) Use 3 times daily (for Lantus twice [...] Active metFORMIN ER (GLUCOPHAGE XR) 500 MG [id number]:Uncon trolled type 2 diabetes mellitus with stage 3 chronic kidney disease, with long-term current use of insulin ([facility]) Take 1 Tab by mouth daily. 30 Tab 11 07/14/2017 Active levothyroxine (LEVOXYL) 25 MCG TabletIndications:Pos tsurgical hypothyroidism TAKE ONE TABLET BY MOUTH IN THE MORNING AT LEAST 30 MINUTES PRIOR TO BREAKFAST OR OTHER MEDS 90 Tab 0 08/02/2017 Active lisinopril (PRINIVIL) 10 MG TabletIndications:HTN , goal below 140/80 TAKE ONE TABLET BY MOUTH DAILY 90 Tab 0 08/02/2017 Active rOPINIRole (REQUIP) 1 MG TabletIndications:Res tless legs syndrome TAKE ONE TABLET BY MOUTH AT BEDTIME 30 Tab 0 08/28/2017 Active gabapentin (NEURONTIN) 100 MG CapsuleIndications:DM type 2 with diabetic peripheral neuropathy (HCC) Take 1 Cap by mouth 3 times a day. 90 Cap 2 08/29/2017 Active ciprofloxacin (CIPRO) 250 MG TabletIndications:Dys uria Take 1 Tab by mouth every 12 hours for 7 days. 14 Tab 0 08/29/2017 09/05/2017 Active as of this encounter Active Problems [...] Sign Reading Time Taken Blood Pressure 126/76 08/29/2017 5:08 PM EST Pulse 104 08/29/2017 5:08 PM EST Temperature 36.6 C (97.9 F) 08/29/2017 5 :08 PM EST Respiratory Rate 20 08/29/2017 5:08 PM EST Oxygen Saturation - - Inhaled Oxygen Concentration - - Weight 148.4 kg (327 lb 3.2 oz) 017 5:08 PM EST Height - - Body Mass Index 56.16 08/29/2017 5:08 PM EST in this encounter Progress Notes * Kriss Moyer PA-C - 08/29/2017 5:20 PM EST Formatting of this note may be different from the original. SUBJECTIVE: CC: Stephanie Camp is a 62 year old female who presents with urinary tract symptoms x 2 weeks HPI: Patient states that 2 weeks ago started with dysuria, urinary urgency, frequency, aches- not sleeping well. Symptoms are just persisting. Last couple days with more chills, headache. No recordedfever. Current temp: 97.9 F, with nothing recently. Bilateral feet pain- has seen podiatry for this. Recommended b vitamins which she did just start. Is crying today. Is really uncomfortable, feet pain is just worsening. Says that will get stabbing pain in bilateral feet, wakes her in middle of night. Diabetes- A1C is improving. Restarted on metformin. Things are going well. Has f/u scheduled in Oct. CKD- recent labs reviewed. GFR 52, creatinine 1.1. HISTORY: Past Medical History: Diagnosis Date Allergic rhinitis due to other allergen Backache Diverticulosis of colon 01/28/06 DM type 2, not at goal ([facility]) Goiter Frank filter in place 08/19/2014 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[facility]) 08/22/2009 History of pulmonary embolus (PE) 07/16/2014 HTN, goal below 140/90 Obesity, BMI not known Perforation of intestine ([facility]) 1996 COLON -- 1996 Pneumonia in aspergillosis(484.6) 09/14/2009 Spontaneous pneumothorax 09/14/2009 Statin intolerance 07/16/2014 Type 2 diabetes mellitus with hemoglobin A1c goal of 7.0%-8.0% ([facility]) 10/14/2014 ICD-10 update of inactive term Past Surgical History: Procedure Laterality Date ARTHROPLASTY KNEE TOTAL Right 07/24/14 R COLONOSCOPY, DIAGNOSTIC (RECTUM) 02/18/2016 normal, repeat 10 yrs/[facility] COLONOSCOPY, GI REFERRAL OP 01/28/06 diverticulosis--repeat 10 years INCISION OF WIN[place], PLANNED 06/03/2011 TRACHEOSTOMY PLANNED performed by DANNY HOLDER at [facility] KNEE ARTHROSCOPY/DEBRIDEMENT 07/[address] PERMANENT GASTROSTOMY TUBE 09/06/09 GASTROSTOMY WITH CONSTUCTION GASTRIC TUBE performed by AMADOU NUNEZ at [facility] REMOVAL OF THYROID GLAND 06/15/2011 THYROIDECTOMY INCLUDING SUBSTERNAL THYROID CERVICAL APPROACH performed by DANNY HOLDER at [facility] REMOVE GALLBLADDER 09/06/09 CHOLECYSTECTOMY performed by AMADOU NUNEZ at [facility] REPAIR RECURRENT INCISIONAL HERNIA 1998 REVISION OF COLOSTOMY, SIMPLE 1998 SUTURE, LARGE INTESTINE W/COLOSTOMY 1996 perforation R colon with colostomy VENA CAVA FILTER/LIGATION/CLIP 08/19/09 Frank filter placement through the right femoral 08/19/[address] Lerma at [facility] Social History Substance Use Topics Smoking status: Former Smoker Packs/day: 1.00 Years: 15.00 Quit date: 08/26/1997 Smokeless tobacco: Never Used Alcohol use Yes Comment: rare Family History Problem Relation Age of Onset Cancer Father lung - age 74 (smoker) Cancer Mother liver - age 45 Heart Disorder Brother age 45 - possible tumor Diabetes Paternal Grandmother Cancer Paternal Grandfather bone ca - in 70's No outpatient prescriptions have been marked as taking for the 08/29/17 encounter (Office Visit) with Kriss Moyer PA-C. Review of patient's allergies indicates: Allergen Reactions Heparin Heparin Induced Thrombocytopenia Morphine And Related Hallucinations Tetanus Toxoid Other (Please comment) Passed out OBJECTIVE: BP 126/76 | Pulse 104 | Temp (Src) 97.9 (Tympanic) | Resp 20 | Wt 327 lbs 3.2 oz (148.417kg) | BMI 56.16 kg/m | BSA 2.59 m | LMP 03/11/2003 General appearance: awake, alert, no apparent distress, cooperative Abdominal Exam: back: CVA tenderness and abd: no suprapubic tenderness to palpation, no R/R/G, +BS Respiratory: clear to auscultation, no rhonchi, no wheezes and no crackles Heart: regular rate and regular rhythm Extremities: no edema, no cyanosis, no abrasions Skin: skin color, texture, turgor are normal, no rashes or significant lesions ASSESSMENT/PLAN: R30.0 Dysuria (primary encounter diagnosis) Plan: Site dip,dipstick only(38962) Ciprofloxacin hcl 250 mg po tabs Sig:Take 1 tab by mouth every 12 hours for 7 days. Push fluids E11.42 Dm type 2 with diabetic peripheral neuropathy (hcc) Plan: Gabapentin 100 mg po caps Sig:Take 1 cap by mouth 3 times a day. Continue b vitamins Patient very uncomfortable today, had 10 minute discussion on options She would like to try medicines at this time N18.3 Kidney disease, chronic, stage iii (gfr 30-59 ml/min) Recent labs stable E11.9 Type 2 diabetes mellitus with hemoglobin a1c goal of 7.0%-8.0% ([facility]) Continue current medicines E11.22, E11.65, N18.3, Z79.4 Uncontrolled type 2 diabetes mellitus with stage 3 chronic kidney disease, with long-term current use of insulin ([facility]) Continue meds Z68.43 Body mass index (bmi) of 50.0 to 59.9 in adult ([facility]) Counseling not appropriate for today Kriss Moyer PA-C [address] [place], [address] in this encounter Nursing Notes * Zeb Ibrahim LPN - 08/29/2017 5:20 PM EST Formatting of this note may be different from the original. The patient has been properly identified by confirmation of name and date of . Chief Complaint Patient presents with URINARY TRACT INFECTION SYMPTOMS Ongoing for about 2 weeks. Frequency-but small amounts, burning, itching, foul smelling, tired, body aches, not sleeping to well for last couple of days, headache. No OTC meds. in this encounter Miscellaneous Notes * Addendum Note - Mann Rodriguez TECH - 08/30/2017 9:24 AM EST Addended by: MANN RODRIGUEZ on: 08/30/2017 09:24 AM Modules accepted: Orders * Addendum Note - Zeb Ibrahim LPN - 08/30/2017 9:17 AM EST Addended by: ZEB IBRAHIM on: 08/30/2017 09:17 AM Modules accepted: Orders in this encounter Plan of Treatment Upcoming Encounters Date Type Specialty Care Team Description 11/15/2017 Office Visit Family Practice Teddy De Oliveira MD [address] [place] [address] [phone] 01/10/2018 Office Visit Podiatry Frances Arias, [place] [address] [place] [address] [phone] 2018 Office Visit Sleep Disorders Celsa Tafoya CRNP [address] [place] [address] [phone] Marquez, Nurse Sleep Disorders [address] [place] [address] [phone] Pending Results Name Priority Associated Diagnoses Date/Ti me CULTURE QUANT URINE Routine Dysuria 08/29/2017 5:43 PM EST Scheduled Tests Name Priority Associated Diagnoses Order S chedule CULTURE QUANT URINE Routine Dysuria Expected: 08/30/2017 (Approximate), Expires: 11/28/2017 Health Maintenance Due Date Last Done Comments CKD PHOS USE SMARTSET 61164 02/24/2010 12/0 09/2008, 08/25/2009, 08/25/2009, Additional history exists DIABETES-EYE EXAM 02/24/2011 02/24/2010 (Do ne elsewhere), 12/18/2009, 02/18/2008 (Done elsewhere) BREAST CANCER SCREENING DISC USSION YEARLY AGES 40-75 05/09/2016 05/09/2015, 07/12/2014, 07/04/2014, Additional history exists PAP SMEAR-EVERY 3 YRS,AGES 21-65 05/11/2016 05/11/2013, 03/01/2008, 10/19/2006, Additional history exists DIABETES-FOOT EXAM 10/21/2017 10/21/2016, 0 12/11/2015, 02/22/2014, Additional history exists CKD GFR USE SMARTSET 47554 01/12/201807/14, 05/21/2017, 05/05/2017, Additional history exists DIABETES-HGBA1C EVERY 6 MONTHS 01/12/2018 1 , 05/05/2017, 03/03/2017, Additional history exists CKD HGB USE SMARTSET 62434 05/21/201805/21, 05/05/2017, 09/23/2016, Additional history exists DIABETES-URINE [...] on fileas of this encounter Results * SITE DIP,DIPSTICK ONLY(51575) (08/29/2017) Component Value Ref Range COLOR, UA yellow yellow - clive CLARITY, UA clear clear - clear GLUCOSE, UA neg neg - neg BILIRUBIN, UA small neg - neg KETONE, UA neg neg - neg SPECIFIC GRAVITY 1.015 1.003 - 1.030 BLOOD, UA trace neg - neg PH, UA 5.0 5.0 - 7.5 PROTEIN, UA neg neg - neg UROBILINOGEN, UA normal normal - normal NITRITE, UA neg neg - neg ESTERASE, UA small neg - neg Specimen Performing Laborator y Urine in this encounter Visit Diagnoses Diagnosis Dysuria - Primary DM type 2 with diabetic aramis pheral neuropathy (HCC) Type II or unspecified type diabetes mellitus with neurological manifestations, not stated as uncontrolled Kidney disease, chronic, sta ge III (GFR 30-59 ml/min) Chronic kidney disease, Stage III (moderate) Type 2 diabetes mellitus wit h hemoglobin A1c goal of 7.0%-8.0% (HCC) Uncontrolled type 2 diabetes mellitus with stage 3 chronic kidney disease, with long-term current use of insulin (HCC) Body mass index (BMI) of 50. 0 to 59.9 in adult (HCC) in this encounter Insurance Payer Benefit Plan / Group Subscriber ID Type Phone Address [facility] [employer] [facility] [id number] [address] [place] [address] [facility] [employer] [id number] as of this encounter"
--- OUTSIDE RECORDS SUMMARY | 2023-06-01 06:06 | External Medical Summary | Summary of Care ---
Author Name Unknown Organization [place] [address] Phone Care Team Providers Care Platen Press Operator Apprentice Name Role Phone Teddy De Oliveira MD Primary Care Provider [phone] Reason for Visit * Reason Comments eRx-Medication Refill Encounter Details Date Type Department Care Team Description 08/01/2017 Refill Family Practice [facility] 132 [facility] [place] [address] Teddy De Oliveira MD 132 [facility] [place] [address] [phone] POSTSURGICAL HYPOTHYROID;HTN, goal below 140/80 Allergies Active Allergy Reactions [...] SOPNIndications:DM type 2, goal: symptom mgmt ([facility]) Inject 1.8 mg under the skin daily. If unable to tolerate, decrease dose back to 1.2 mg daily 2 Pre-filled Pen Syringe Dosing Unit 11 01/20/2017 Active Insulin Pen Needle (BD PEN NEEDLE SHORT U/F) 31G X 8 MMIndications:Type 2 diabetes mellitus with hemoglobin A1c goal of 7.0%-8.0% ([facility]) Use 3 times daily (for Lantus [...] A1c goal of 7.0%-8.0% ([facility]) Inject 66 Units under the skin 2 times a day. Titrate by 2 units until SBGM <150 2 Pre-filled Pen Syringe Dosing Unit 11 05/24/2017 Active rOPINIRole (REQUIP) 1 MG TabletIndications:R estless legs syndrome TAKE ONE TABLET BY MOUTH AT BEDTIME 30 Tab 1 06/28/2017 Active Nortriptyline HCl 50 MG CapsuleIndications: Fibromyalgia [...] Active metFORMIN ER (GLUCOPHAGE XR) 500 MG [id number]:Unc ontrolled type 2 diabetes mellitus with stage 3 chronic kidney disease, with long-term current use of insulin ([facility]) Take 1 Tab by mouth daily. 30 Tab 11 07/14/2017 Active levothyroxine (LEVOXYL) 25 MCG TabletIndications:P ostsurgical hypothyroidism TAKE ONE TABLET BY MOUTH IN THE MORNING AT LEAST 30 MINUTES PRIOR TO BREAKFAST OR OTHER MEDS 90 Tab 0 08/02/2017 Active lisinopril (PRINIVIL) 10 MG TabletIndications:H TN, goal below 140/80 TAKE ONE TABLET BY MOUTH DAILY 90 Tab 0 08/02/2017 Active lisinopril (PRINIVIL) 10 MG TabletIndications:H TN, goal below 140/80 TAKE ONE TABLET BY MOUTH DAILY 90 Tab 1 01/24/2017 7 Discontinued levothyroxine (LEVOXYL) 25 MCG TabletIndications:P ostsurgical hypothyroidism TAKE ONE TABLET BY MOUTH IN THE MORNING AT LEAST 30 MINUTES PRIOR TO BREAKFAST OR OTHER MEDS 90 Tab 1 01/24/2017 7 Discontinued as of this encounter Active Problems Problem Noted Date Controlled substance agreement signed Body mass index (BMI) of 50.0 to 59.9 in adult ([facility]) 06/27/2017 Overview: Per Obesity protocol #1 - Per Obesity Taxonomy ICD-10 update of inactive term Uncontrolled type 2 diabetes mellitus with stage 3 chronic kidney disease, with long-term current use of insulin ([facility]) 05/24/2017 Gastroesophageal reflux disease with eso phagitis 03/04/2017 Restless legs syndrome 03/25/2016 Fibromyalgia 02/02/2016 Abnormality of gait 02/02/2016 Type 2 diabetes mellitus with hemoglobin A1c goal of 7.0%-8.0% ([facility]) 10/14/2014 Overview: ICD-10 update of inactive term [place] filter in place 08/19/2014 History of pulmonary [...] index (BMI) of 40.0-44.9 in adult ([facility] ) 08/17/2010 05/24/2017 Obesity, morbid (more than 1 00 lbs over ideal weight or BMI > 40) ([facility]) 12/23/2009 06/30/2017 Overview: Per Obesity Taxonomy ICD-10 update of inactive term HTN, GOAL BELOW 130/80 10/22/2009 2 Overview: Per HTN Taxonomy. Pneumonia in aspergillosis ([facility]) 09/14/2009 02/15/2017 Venous thrombosis 09/14/2009 10/15/2010 Respiratory failure, acute ([facility]) 09/14/2009 02/15/2017 Spontaneous pneumothorax 09/14/2009 017 Dysuria 08/23/2009 02/15/2017 Type 2 diabetes mellitus wit h hemoglobin A1c goal of less than 7.0% ([facility]) 07/10/2009 10/14/2014 Overview: Modified per Diabetes protocol #14. ICD-10 update of inactive term Dyslipidemia, goal LDL below 160 08/16/2007 09/04/2009 Overview: Per Lipid Taxonomy. HTN, goal below 140/90 04/09/2003 0 Overview: Per HTN Taxonomy. DM type 2, not at goal ([facility]) 05/29/2002 Overview: Modified per Diabetes protocol [...] Teddy De Oliveira MD [address] [place] [address] [phone] 01/10/2018 Office Visit Podiatry Frances Arias DPM [address] [place] [address] 2018 Office Visit Sleep Disorders Celsa Tafoya CRNP [address] [place] [address] [phone] Marquez, Nurse Sleep Disorders [address] [place] [address] [phone] Health Maintenance Due Date Last Done Comments CKD PHOS USE SMARTSET 76714 02/24/2010 12/0 09/2008, 08/25/2009, 08/25/2009, Additional history exists DIABETES-EYE EXAM 02/24/2011 02/24/2010 (Do ne elsewhere), 12/18/2009, 02/18/2008 (Done elsewhere) BREAST CANCER SCREENING DISC USSION YEARLY AGES 40-75 05/09/2016 05/09/2015, 07/12/2014, 07/04/2014, Additional history exists PAP SMEAR-EVERY 3 YRS,AGES 21-65 05/11/2016 05/11/2013, 03/01/2008, 10/19/2006, Additional history exists DIABETES-FOOT EXAM 10/21/2017 10/21/2016, 0 12/11/2015, 02/22/2014, Additional history exists CKD GFR USE SMARTSET 34860 01/12/201807/14, 05/21/2017, 05/05/2017, Additional history exists DIABETES-HGBA1C EVERY 6 MONTHS 01/12/2018 1 , 05/05/2017, 03/03/2017, Additional history exists CKD HGB USE SMARTSET 75789 05/21/201805/21, 05/05/2017, 09/23/2016, Additional history exists DIABETES-URINE [...] Visit Diagnoses Diagnosis POSTSURGICAL HYPOTHYROID Postsurgical hypothyroidism HTN, goal below 140/80 Unspecified essential hypertension in this encounter Insurance Payer Benefit Plan / Group Subscriber ID Type Phone Address [facility] [employer] [facility] [id number] [phone] [facility] [place] [address] [facility]HAVIORAL [facility]ENTAL [facility] INS [facility] [employer] [id number] as of this encounter
--- OUTSIDE RECORDS SUMMARY | 2023-06-01 06:06 | External Medical Summary | Summary of Care ---
Author Name Unknown Organization [place] [address] Phone Care Team Providers Care Application Integration Specialist Name Role Phone Teddy De Oliveira MD Primary Care Provider [phone] Encounter Details Date Type Department Care Team Description 09/15/2017 Orders Only Outcomes Research Department [address] [place] [address] Teddy De Oliveira MD [address] [place] [address] [employer] Research Other*[id number] Allergies Active Allergy Reactions Severity Noted Date [...] goal of 7.0%-8.0% ([facility]) Use 3 times daily (for Lantus [...] Active metFORMIN ER (GLUCOPHAGE XR) 500 MG [id number]:Uncon trolled type 2 diabetes mellitus with stage 3 chronic kidney disease, with long-term current use of insulin ([facility]) Take 1 Tab by mouth daily. [...] CapsuleIndications:DM type 2 with diabetic peripheral neuropathy ([facility]) Take 1 Cap by mouth 3 times a day. 90 Cap 2 08/29/2017 Active as of this encounter Active Problems [...] 10/14/2014 Overview: ICD-10 update of inactive term [place] filter in place 08/19/2014 History of pulmonary [...] Teddy De Oliveira MD [address] [place] [address] [phone] 01/10/2018 Office Visit Podiatry Frances Arias DPM [address] [place] [address] [phone] 2018 Office Visit Sleep Disorders Celsa Tafoya CRNP [address] [place] [address] [phone] Marquez, Nurse Sleep Disorders [address] [place] [address] [phone] Scheduled Tests Name Priority Associated Diagnoses Order S chedule MYCODE INITIAL ADULT Routine [employer] Research Other*[id number] Expected: 09/15/2017, Expires: 10/05/2018 Health Maintenance Due Date Last Done Comments Yearly B-12 1955 CKD PHOS USE SMARTSET 79203 02/24/2010 12/0 09/2008, 08/25/2009, 08/25/2009, Additional history exists DIABETES-EYE EXAM 02/24/2011 02/24/2010 (Do ne elsewhere), 12/18/2009, 02/18/2008 (Done elsewhere) BREAST CANCER SCREENING DISC USSION YEARLY AGES 40-75 05/09/2016 05/09/2015, 07/12/2014, 07/04/2014, Additional history exists PAP SMEAR-EVERY 3 YRS,AGES 21-65 05/11/2016 05/11/2013, 03/01/2008, 10/19/2006, Additional history exists DIABETES-FOOT EXAM 10/21/2017 10/21/2016, 0 12/11/2015, 02/22/2014, Additional history exists CKD GFR USE SMARTSET 70665 01/12/201807/14, 05/21/2017, 05/05/2017, Additional history exists DIABETES-HGBA1C EVERY 6 MONTHS 01/12/2018 1 , 05/05/2017, 03/03/2017, Additional history exists CKD HGB USE SMARTSET 57531 05/21/201805/21, 05/05/2017, 09/23/2016, Additional history exists DIABETES-URINE [...] this encounter Visit Diagnoses Diagnosis MYCODE RESEARCH OTHER*[id number] in this encounter Insurance Payer Benefit Plan / Group Subscriber ID Type Phone Address [facility] [employer] [facility] [employer] [facility] [id number] [phone] [facility] [place] [address] [facility]AVIORAL [facility]ENTAL [facility] [employer] [id number] as of this encounter
--- OUTSIDE RECORDS SUMMARY | 2023-06-01 06:06 | External Medical Summary ---
Author Name Unknown Address Unknown Organization [facility]:Performed at [address] [address] Laboratory Report Ordering Provider Test Date Status THU VO 05/21/2017 11:35:00 Final Observation Date Value Abnormality Reference Status Source 05/21/2017 11:35 CLEAN CATCH URINE Final Bacteria identified in Unspecified specimen by Culture 05/22/2017 12:58 10,000 TO 100,000 COLONIES/ML ESCHERICHIA COLI Abnormal Final Bacteria identified in Unspecified specimen by Culture 05/22/2017 12:58 LESS THAN 10,000 COLONIES/ML MIXED NORMAL MELISSA Final REPORT STATUS 05/23/2017 15:48 05/23/2017 FINAL Final Bacteria identified in Isolate by Culture 05/23/2017 12:31 ESCHERICHIA COLI Abnormal Final Performing Location Performed at [address] [address]
--- OUTSIDE RECORDS SUMMARY | 2023-06-01 06:06 | External Medical Summary | Summary of Care ---
Author Name Unknown Organization [place] [address] Phone Care Team Providers Care Hosiery Bagger Name Role Phone Teddy De Oliveira MD Primary Care Provider [phone] Reason for Visit * Reason Comments LEFT MESSAGE Encounter Details Date Type Department Care Team Description 07/01/2017 Telephone Ancillary department, [address] [address] Kriss Torres, LEXI [address] [place] [id number] LEFT MESSAGE Allergies Active Allergy Reactions Severity Noted Date [...] goal of 7.0%-8.0% ([facility]) Use 3 times daily (for Lantus [...] 11 05/24/2017 Active rOPINIRole (REQUIP) 1 MG TabletIndications:Res tless legs syndrome TAKE ONE TABLET BY MOUTH AT BEDTIME 30 Tab 1 06/28/2017 Active as of this encounter Active Problems [...] 10/14/2014 Overview: ICD-10 update of inactive term [place] filter in place 08/19/2014 History of pulmonary [...] 2, not at goal ([facility]) 05/29/2002 Overview: Modified per Diabetes protocol #14. TENOSYNOVITIS FOOT-ANKLE 12/26/2001 017 Goiter 01/13/2000 06/28/2011 BACKACHE NOS 08/26/1999 05/24/2017 OBESITY, UNSPECIFIED 08/26/1999 12/23/2009 Overview: Per Obesity Taxonomy Perforation of intestine (HCC) 0 02/15/2017 Overview: COLON Diverticulitis as of this encounter Immunizations Name Dates Previously Given Next Due Pneumococcal Polyvalent Vacc (Pneumovax) 08/22/2009,06/15/2006 Seasonal Influenza, Quadriva lent, No Preserve, IM [...] De Oliveira MD [address] [place] [address] 01/10/2018 Office Visit Podiatry Frances Arias DPM [address] [place] [id number] 2018 Office Visit Sleep Disorders Celsa Tafoya CRNP [address] [place] [address] [facility] [address] [place] [address] Health Maintenance Due Date Last Done Comments CKD PHOS USE SMARTSET 04661 02/24/2010 12/0 09/2008, 08/25/2009, 08/25/2009, Additional history exists DIABETES-EYE EXAM 02/24/2011 02/24/2010 (Do ne elsewhere), 12/18/2009, 02/18/2008 (Done elsewhere) BREAST CANCER SCREENING DISC USSION YEARLY AGES 40-75 05/09/2016 05/09/2015, 07/12/2014, 07/04/2014, Additional history exists PAP SMEAR-EVERY 3 YRS,AGES 21-65 05/11/2016 05/11/2013, 03/01/2008, 10/19/2006, Additional history exists DIABETES-FOOT EXAM 10/21/2017 10/21/2016, 0 12/11/2015, 02/22/2014, Additional history exists CKD GFR USE SMARTSET 28624 01/12/201807/14, 05/21/2017, 05/05/2017, Additional history exists DIABETES-HGBA1C EVERY 6 MONTHS 01/12/2018 1 , 05/05/2017, 03/03/2017, Additional history exists CKD HGB USE SMARTSET 86779 05/21/201805/21, 05/05/2017, 09/23/2016, Additional history exists DIABETES-URINE [...] / Group Subscriber ID Type Phone Address [facility] [employer] [facility] [employer] [facility] EXTRA [id number] [phone] [place] [address] [facility] [employer] [id number] as of this encounter
--- OUTSIDE RECORDS SUMMARY | 2023-06-01 06:06 | External Medical Summary | Summary of Care ---
Author Name Unknown Organization [place] [address] Phone Care Team Providers Care Development Writer Name Role Phone Teddy De Oliveira MD Primary Care Provider [phone] Reason for Visit * Reason Comments ADVICE Encounter Details Date Type Department Care Team Description 08/29/2017 Telephone Family Practice [facility] [address] [place] [address] Teddy De Oliveira MD [address] [place] [address] ADVICE Allergies Active Allergy Reactions Severity [...] goal of 7.0%-8.0% ([facility]) Use 3 times daily (for Lantus twice [...] Active metFORMIN ER (GLUCOPHAGE XR) 500 MG [id number]:Uncon trolled type 2 diabetes mellitus with stage 3 chronic kidney disease, with long-term current use of insulin ([facility]) Take 1 Tab [...] AT BEDTIME 30 Tab 0 08/28/2017 Active as of this encounter Active Problems [...] 10/14/2014 Overview: ICD-10 update of inactive term [place] filter in place 08/19/2014 History of [...] not at goal ([facility]) 05/29/2002 Overview: Modified per Diabetes protocol #14. TENOSYNOVITIS FOOT-ANKLE 12/26/2001 017 Goiter 01/13/2000 06/28/2011 BACKACHE NOS 08/26/1999 05/24/2017 OBESITY, UNSPECIFIED 08/26/1999 12/23/2009 Overview: Per Obesity Taxonomy Perforation of intestine ([facility]) 0 02/15/2017 Overview: COLON Diverticulitis as of [...] Telephone Encounter - Jennifer Cesar LPN - 08/29/2017 11:38 AM EST Pt has an appt @ 5:20 pm with Kriss Moyer. Pt aware and agreeable to appt * Telephone Encounter - Teddy De Oliveira MD - 08/29/2017 11:00 AM EST With chills and flank pain, should be seen in the office Most rule out kidney infection or renal calculus * Telephone Encounter - Flaca Real LPN - 08/29/2017 9:31 AM EST UTI: Symptoms: >7 days durations: yes Rigors ( shaking chills): yes Flank pain - midback, severe, new occurring with onset of these symptoms: yes Nausea, vomiting, or abdominal pain: yes- ab pain Bilateral lower quad Temperature > 101F: no Recent onset of or change in vaginal discharge, odor, itching, or dyspareunia: yes History: Never seen in our office before: yes Age < 18 years or > 65 years: no Diabetes:yes Currently : no Immunosuppressed (e.g., steroids, chemotherapy): no Renal calculi or renal insufficiency: no Known functional or structural urologic abnormalities: no Urinary tract catheterization (or other urologic procedure or instrumentation within last 2 weeks):no Discharge from hospital or [facility] within last 2 weeks: no >4 UTI's within last 12 months: yes Failure of antibiotic treatment for UTI within last 3 months: no Acute pyelonephritis within last 3 months: no Contact with a partner infected with an STD: no Pt sched today with rKiss Chauhan At 520 in this encounter Plan of Treatment Upcoming Encounters Date Type Specialty Care Team Description 11/15/[address] [facility] Teddy De Oliveira MD [address] [place] [address] [phone] 01/10/2018 Office Visit Podiatry Frances Arias DPM [address] [place] [id number] Office Visit Sleep Disorders Celsa Tafoya CRNP [address] [place] [address] [phone] [facility] [address] [place] [address] Health Maintenance Due Date Last Done Comments Yearly B-12 1955 CKD PHOS USE SMARTSET 35144 02/24/2010 12/0 09/2008, 08/25/2009, 08/25/2009, Additional history exists DIABETES-EYE EXAM 02/24/2011 02/24/2010 (Do ne elsewhere), 12/18/2009, 02/18/2008 (Done elsewhere) BREAST CANCER SCREENING DISC USSION YEARLY AGES 40-75 05/09/2016 05/09/2015, 07/12/2014, 07/04/2014, Additional history exists PAP SMEAR-EVERY 3 YRS,AGES 21-65 05/11/2016 05/11/2013, 03/01/2008, 10/19/2006, Additional history exists DIABETES-FOOT EXAM 10/21/2017 10/21/2016, 0 12/11/2015, 02/22/2014, Additional history exists CKD GFR USE SMARTSET 47456 01/12/201807/14, 05/21/2017, 05/05/2017, Additional history exists DIABETES-HGBA1C EVERY 6 MONTHS 01/12/2018 1 , 05/05/2017, 03/03/2017, Additional history exists CKD HGB USE SMARTSET 56720 05/21/201805/21, 05/05/2017, 09/23/2016, Additional history exists DIABETES-URINE [...] / Group Subscriber ID Type Phone Address [facility] [employer] [facility] EXTRA [id number] [phone] [facility] [place] [address] [facility] [id number] as of this encounter
--- OUTSIDE RECORDS SUMMARY | 2023-06-01 06:06 | External Medical Summary | Summary of Care ---
Author Name Unknown [place] [address] Phone Care Team Providers Care Transmission Worker Name Role Phone Teddy De Oliveira MD Primary Care Provider [phone] Reason for Visit * Reason Comments URINARY TRACT INFECTION SYMPTOMS Ongoing for about 2 weeks. Frequency-but small amounts, burning, itching, foul smelling, tired, body aches, not sleeping to well for last couple of days, headache. No OTC meds. Encounter Details Date Type Department Care Team Description 08/29/2017 Office Visit Family Practice [facility] [address] [facility] [place] [address] Kriss Moyer PA-C [address] [address] Dysuria*;DM type 2 with diabetic peripheral neuropathy ([facility]);Kidney disease, chronic, stage III (GFR 30-59 ml/min);Type 2 diabetes mellitus with hemoglobin A1c goal of 7.0%-8.0% ([facility]);Uncontrolled type 2 diabetes mellitus with stage 3 chronic kidney disease, with long-term current use of insulin ([facility]);Body mass index (BMI) of 50.0 to 59.9 in adult ([facility]) Allergies Active Allergy Reactions Severity Noted [...] Active metFORMIN ER (GLUCOPHAGE XR) 500 MG [id number]:Uncon trolled type 2 diabetes mellitus with stage 3 chronic kidney disease, with long-term current use of insulin ([facility]) Take 1 Tab by mouth daily. [...] 59.9 in adult ([facility]) 06/27/2017 Overview: Per Obesity protocol #1 - Per Obesity Taxonomy ICD-10 update of inactive term Uncontrolled type 2 diabetes mellitus with stage 3 chronic kidney disease, with long-term current use of insulin ([facility]) 05/24/2017 Gastroesophageal reflux disease with eso phagitis 03/04/2017 Restless legs syndrome 03/25/2016 Fibromyalgia 02/02/2016 Abnormality of gait 02/02/2016 Type 2 diabetes mellitus with hemoglobin A1c goal of 7.0%-8.0% ([facility]) 10/14/2014 Overview: ICD-10 update of inactive [...] (BMI) of 40.0-44.9 in adult ([facility] ) 08/17/2010 05/24/2017 Obesity, morbid (more than 1 00 lbs over ideal weight or BMI > 40) ([facility]) 12/23/2009 06/30/2017 Overview: Per Obesity Taxonomy ICD-10 update of inactive term HTN, GOAL BELOW 130/80 10/22/2009 2 Overview: Per HTN Taxonomy. Pneumonia in aspergillosis ([facility]) 09/14/2009 02/15/2017 Venous thrombosis 09/14/2009 10/15/2010 Respiratory failure, acute ([facility]) 09/14/2009 02/15/2017 Spontaneous pneumothorax 09/14/2009 017 Dysuria 08/23/2009 02/15/2017 Type 2 diabetes mellitus wit h hemoglobin A1c goal of less than 7.0% ([facility]) 07/10/2009 10/14/2014 Overview: Modified per Diabetes protocol #14. ICD-10 update of inactive term Dyslipidemia, goal LDL below 160 08/16/2007 09/04/2009 Overview: Per Lipid Taxonomy. HTN, goal below 140/90 04/09/2003 0 Overview: Per HTN Taxonomy. DM type 2, not at goal ([facility]) 05/29/2002 Overview: Modified per Diabetes protocol #14. TENOSYNOVITIS FOOT-ANKLE 12/26/2001 017 Goiter 01/13/2000 06/28/2011 BACKACHE NOS 08/26/1999 05/24/2017 OBESITY, UNSPECIFIED 08/26/1999 12/23/2009 Overview: Per Obesity Taxonomy Perforation of intestine ([facility]) 0 02/15/2017 Overview: COLON Diverticulitis as [...] be different from the original. SUBJECTIVE: CC: Stephnaie Camp is a 62 year old female [...] not at goal ([facility]) Goiter Frank filter in place 08/19/2014 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[facility]) 08/22/2009 History of pulmonary embolus (PE) [...] TRACHEOSTOMY PLANNED performed by DANNY HOLDER at [facility] KNEE ARTHROSCOPY/DEBRIDEMENT 07/[address] PERMANENT GASTROSTOMY TUBE 09/06/09 GASTROSTOMY WITH CONSTUCTION GASTRIC TUBE performed by AMADOU NUNEZ at [facility] REMOVAL OF THYROID GLAND 06/15/2011 THYROIDECTOMY INCLUDING SUBSTERNAL THYROID CERVICAL APPROACH performed by DANNY HOLDER at [facility] REMOVE GALLBLADDER 09/06/09 CHOLECYSTECTOMY performed by AMADOU NUNEZ at [facility] REPAIR RECURRENT INCISIONAL HERNIA 1998 REVISION OF COLOSTOMY, SIMPLE 1998 SUTURE, LARGE INTESTINE W/COLOSTOMY 1996 perforation R colon with colostomy VENA CAVA FILTER/LIGATION/CLIP 08/19/09 Frank filter placement through the right femoral 08/19/[address] Lerma at [facility] Social History Substance Use Topics Smoking status: [...] Dysuria (primary encounter diagnosis) Plan: Site dip,dipstick only(67348) Ciprofloxacin hcl 250 mg po tabs Sig:Take [...] with hemoglobin a1c goal of 7.0%-8.0% ([facility]) Continue current medicines E11.22, E11.65, N18.3, Z79.4 Uncontrolled type 2 diabetes mellitus with stage 3 chronic kidney disease, with long-term current use of insulin ([facility]) Continue meds Z68.43 Body mass index (bmi) of 50.0 to 59.9 in adult ([facility]) Counseling not appropriate for today [facility] [address] [place], [address] in this encounter Nursing Notes * [...] encounter Miscellaneous Notes * Addendum Note - Zeb Ibrahim LPN - 08/30/2017 9:17 AM EST Addended by: ZEB IBRAHIM on: 08/30/2017 09:17 AM Modules accepted: Orders in this encounter Plan of Treatment Upcoming Encounters Date Type Specialty Care Team Description 11/15/2017 Office Visit [facility] Teddy De Oliveira MD [address] [place] [phone] 01/10/2018 Office Visit Podiatry Frances Arias, ELENA [address] [place] [address] 2018 Office Visit Sleep Disorders Celsa Tafoya CRNP [address] [place] [address] [phone] [facility] [address] [facility] [place] [address] [phone] Scheduled Tests Name Priority Associated Diagnoses Order S chedule CULTURE QUANT URINE Routine Dysuria Expected: 08/30/2017 (Approximate), Expires: 11/28/2017 Health Maintenance Due Date Last Done Comments CKD PHOS USE SMARTSET 75783 02/24/2010 12/0 09/2008, 08/25/2009, 08/25/2009, Additional history exists DIABETES-EYE EXAM 02/24/2011 02/24/2010 (Do ne elsewhere), 12/18/2009, 02/18/2008 (Done elsewhere) BREAST CANCER SCREENING DISC USSION YEARLY AGES 40-75 05/09/2016 05/09/2015, 07/12/2014, 07/04/2014, Additional history exists PAP SMEAR-EVERY 3 YRS,AGES 21-65 05/11/2016 05/11/2013, 03/01/2008, 10/19/2006, Additional history exists DIABETES-FOOT EXAM 10/21/2017 10/21/2016, 0 12/11/2015, 02/22/2014, Additional history exists CKD GFR USE SMARTSET 56108 01/12/201807/14, 05/21/2017, 05/05/2017, Additional history exists DIABETES-HGBA1C EVERY 6 MONTHS 01/12/2018 1 , 05/05/2017, 03/03/2017, Additional history exists CKD HGB USE SMARTSET 07886 05/21/201805/21, 05/05/2017, 09/23/2016, Additional history exists DIABETES-URINE [...] of this encounter Results * SITE DIP,DIPSTICK ONLY(66702) (08/29/2017) Component Value Ref Range COLOR, UA [...] / Group Subscriber ID Type Phone Address [facility] [employer] [facility] [employer] EXTRA [id number] [phone] [facility] [address]ges[place] [address] [facility]AVIORAL MENTAL [facility] INS [facility] [id number] as of this encounter"
--- OUTSIDE RECORDS SUMMARY | 2023-06-01 06:06 | External Medical Summary ---
Author Name Unknown Address [address] [facility] [place] [address] Phone Organization K0G:[facility] [address] [place] [address] [place]on [place]AMAS [address] Laboratory Report Ordering Provider Test Date Status PRINCE KASI 07/14/2017 12:35:00 Final Observation Date Value Abnormality Reference Status ALT (Alanine aminotransferase) 07/14/2017 13:46 22 10-35 Final Performing Location [facility] [address] [place] [address]
--- OUTSIDE RECORDS SUMMARY | 2023-06-01 06:06 | External Medical Summary | Summary of Care ---
Author Name Unknown Organization [place] [address] Phone Care Team Providers Care Protective Signal Installer Helper Name Role Phone Teddy De Oliveira MD Primary Care Provider Reason for Visit * Reason Comments TEST RESULTS urine cx Encounter Details Date Type Department Care Team Description 09/01/2017 Telephone Family Practice [facility] [place] [address] Kriss Moyer PA-C [address] [employer] [facility] [address] [phone] TEST RESULTS (urine cx) Allergies Active Allergy Reactions Severity Noted Date [...] A1c goal of 7.0%-8.0% ([facility]) Use 3 times daily (for Lantus twice [...] goal of 7.0%-8.0% ([facility]) Inject 66 Units under the skin 2 [...] Active metFORMIN ER (GLUCOPHAGE XR) 500 MG [id number]:Uncon trolled type 2 diabetes mellitus with stage 3 chronic kidney disease, with long-term current use of insulin ([facility]) Take 1 Tab by mouth daily. 30 [...] CapsuleIndications:DM type 2 with diabetic peripheral neuropathy ([facility]) Take 1 Cap by [...] 50.0 to 59.9 in adult ([facility]) 06/27/2017 Overview: Per Obesity protocol #1 - Per Obesity Taxonomy ICD-10 update of inactive term Uncontrolled type 2 diabetes mellitus with stage 3 chronic kidney disease, with long-term current use of insulin ([facility]) 05/24/2017 Gastroesophageal reflux disease with eso phagitis 03/04/2017 Restless legs syndrome 03/25/2016 Fibromyalgia 02/02/2016 Abnormality of gait 02/02/2016 Type 2 diabetes mellitus with hemoglobin A1c goal of 7.0%-8.0% ([facility]) 10/14/2014 Overview: ICD-10 update of inactive term [...] (BMI) of 40.0-44.9 in adult ([facility] ) 08/17/2010 05/24/2017 Obesity, morbid (more than 1 00 lbs over ideal weight or BMI > 40) ([facility]) 12/23/2009 06/30/2017 Overview: Per Obesity Taxonomy ICD-10 update of inactive term HTN, GOAL BELOW 130/80 10/22/2009 2 Overview: Per HTN Taxonomy. Pneumonia in aspergillosis ([facility]) 09/14/2009 02/15/2017 Venous thrombosis 09/14/2009 10/15/2010 Respiratory failure, acute ([facility]) 09/14/2009 02/15/2017 Spontaneous pneumothorax 09/14/2009 017 Dysuria 08/23/2009 02/15/2017 Type 2 diabetes mellitus wit h hemoglobin A1c goal of less than 7.0% ([facility]) 07/10/2009 10/14/2014 Overview: Modified per Diabetes protocol #14. ICD-10 update of inactive term Dyslipidemia, goal LDL below 160 08/16/2007 09/04/2009 Overview: Per Lipid Taxonomy. HTN, goal below 140/90 04/09/2003 0 Overview: Per HTN Taxonomy. DM type 2, not at goal ([facility]) 05/29/2002 Overview: Modified per Diabetes protocol #14. [...] Miscellaneous Notes * Telephone Encounter - Corinne Dorantes LPN - 09/02/2017 8:34 AM EST LVM for return call * Telephone Encounter - Kriss Moyer PA-C - 09/01/2017 9:58 PM EST Urine culture POSITIVE for UTI. The bacteria is sensitive to the antibiotic prescribed. Finish entire course of antibiotic and follow up if symptoms persist. in this encounter Plan of Treatment Upcoming Encounters Date Type Specialty Care Team Description 11/15/2017 Office Visit Family Practice [facility] [place] [address] 01/10/2018 Office Visit Podiatry Frances Arias DPM [address] [place] [address] 2018 Office Visit Sleep Disorders Celsa Tafoya CRNP [address] [place] [address] [phone] Nurse [facility] [address] [place] [address] [phone] Health Maintenance Due Date Last Done Comments Yearly B-12 1955 CKD PHOS USE SMARTSET 07425 02/24/2010 12/0 09/2008, 08/25/2009, 08/25/2009, Additional history exists DIABETES-EYE EXAM 02/24/2011 02/24/2010 (Do ne elsewhere), 12/18/2009, 02/18/2008 (Done elsewhere) BREAST CANCER SCREENING DISC USSION YEARLY AGES 40-75 05/09/2016 05/09/2015, 07/12/2014, 07/04/2014, Additional history exists PAP SMEAR-EVERY 3 YRS,AGES 21-65 05/11/2016 05/11/2013, 03/01/2008, 10/19/2006, Additional history exists DIABETES-FOOT EXAM 10/21/2017 10/21/2016, 0 12/11/2015, 02/22/2014, Additional history exists CKD GFR USE SMARTSET 93169 01/12/201807/14, 05/21/2017, 05/05/2017, Additional history exists DIABETES-HGBA1C EVERY 6 MONTHS 01/12/2018 1 , 05/05/2017, 03/03/2017, Additional history exists CKD HGB USE SMARTSET 61652 05/21/201805/21, 05/05/2017, 09/23/2016, Additional history exists DIABETES-URINE [...] / Group Subscriber ID Type Phone Address [facility] [employer] [facility] [employer] [facility] [employer] [id number] [address] [place] [phone] [facility] [id number] as of this encounter
--- OUTSIDE RECORDS SUMMARY | 2023-06-01 06:06 | External Medical Summary ---
Author Name Unknown Address [facility] [address] Phone Organization K01:[facility] [address] [id number] Laboratory Report Ordering Provider Test Date Status PRINCE KASI 07/14/2017 12:35:00 Final Observation Date Value Abnormality Reference Status LDL, (direct) 07/14/2017 17:56 109 0-129 Final Performing Location [facility] [address] [facility] [address]
--- OUTSIDE RECORDS SUMMARY | 2023-06-01 06:06 | External Medical Summary | Summary of Care ---
Author Name Unknown Organization [place] [address] Phone Care Team Providers Care Electronic Repair Troubleshooter Name Role Phone Teddy De Oliveira MD Primary Care Provider [phone] Reason for Visit * Reason Comments URINARY TRACT INFECTION SYMPTOMS Ongoing for about 2 weeks. Frequency-but small amounts, burning, itching, foul smelling, tired, body aches, not sleeping to well for last couple of days, headache. No OTC meds. Encounter Details Date Type Department Care Team Description 08/29/2017 Office Visit Family Practice [facility] 132 [facility] [place] [address] Kriss Moyer PA-C [facility] [address] Dysuria*;DM type 2 with diabetic peripheral neuropathy ([facility]);Kidney disease, chronic, stage III (GFR 30-59 ml/min);Type 2 diabetes mellitus with hemoglobin A1c goal of 7.0%-8.0% ([facility]);Uncontrolled type 2 diabetes mellitus with stage 3 chronic kidney disease, with long-term current use of insulin ([facility]);Body mass index (BMI) of 50.0 to 59.9 in adult ([facility]) Allergies Active Allergy [...] Active metFORMIN ER (GLUCOPHAGE XR) 500 MG [id number]:Uncon trolled type 2 diabetes mellitus with stage [...] not at goal ([facility]) Goiter Frank filter in place 08/19/2014 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[facility]) 08/22/2009 History of pulmonary embolus (PE) [...] TRACHEOSTOMY PLANNED performed by DANNY HOLDER at [facility] KNEE ARTHROSCOPY/DEBRIDEMENT 07/[address] PERMANENT GASTROSTOMY TUBE 09/06/09 GASTROSTOMY WITH CONSTUCTION GASTRIC TUBE performed by AMADOU NUNEZ at [facility] REMOVAL OF THYROID GLAND 06/15/2011 THYROIDECTOMY INCLUDING SUBSTERNAL THYROID CERVICAL APPROACH performed by DANNY HOLDER at [facility] REMOVE GALLBLADDER 09/06/09 CHOLECYSTECTOMY performed by AMADOU NUNEZ at [facility] REPAIR RECURRENT INCISIONAL HERNIA 1998 REVISION OF COLOSTOMY, SIMPLE 1998 SUTURE, LARGE INTESTINE W/COLOSTOMY 1996 perforation R colon with colostomy VENA CAVA FILTER/LIGATION/CLIP 08/19/09 Frank filter placement through the right femoral 08/19/[address] Lerma at [facility] Social History Substance Use Topics Smoking status: [...] Dysuria (primary encounter diagnosis) Plan: Site dip,dipstick only([address]) Ciprofloxacin hcl 250 mg po tabs Sig:Take [...] mellitus with hemoglobin a1c goal of 7.0%-8.0% ([facility]) Continue current medicines E11.22, E11.65, N18.3, Z79.4 Uncontrolled type 2 diabetes mellitus with stage 3 chronic kidney disease, with long-term current use of insulin ([facility]) Continue meds Z68.43 Body mass index (bmi) of 50.0 to 59.9 in adult ([facility]) Counseling not appropriate for today [facility] [address] [place], [address] in this encounter Nursing Notes * [...] headache. No OTC meds. in this encounter Plan of Treatment Upcoming Encounters Date Type Specialty Care Team Description 11/15/2017 Office Visit Family [facility] Teddy De Oliveira MD [address] [place] [address] [phone] 01/10/2018 Office Visit Podiatry Frances Arias DPM [address] [place] [id number] 2018 Office Visit Sleep Disorders Celsa Tafoya CRNP [address] [place] [address] [phone] Nurse [facility] [address] [place] [address] [phone] Health Maintenance Due Date Last Done Comments CKD PHOS USE SMARTSET 12604 02/24/2010 12/0 09/2008, 08/25/2009, 08/25/2009, Additional history exists DIABETES-EYE EXAM 02/24/2011 02/24/2010 (Do ne elsewhere), 12/18/2009, 02/18/2008 (Done elsewhere) BREAST CANCER SCREENING DISC USSION YEARLY AGES 40-75 05/09/2016 05/09/2015, 07/12/2014, 07/04/2014, Additional history exists PAP SMEAR-EVERY 3 YRS,AGES 21-65 05/11/2016 05/11/2013, 03/01/2008, 10/19/2006, Additional history exists DIABETES-FOOT EXAM 10/21/2017 10/21/2016, 0 12/11/2015, 02/22/2014, Additional history exists CKD GFR USE SMARTSET 88337 01/12/201807/14, 05/21/2017, 05/05/2017, Additional history exists DIABETES-HGBA1C EVERY 6 MONTHS 01/12/2018 1 , 05/05/2017, 03/03/2017, Additional history exists CKD HGB USE SMARTSET 75387 05/21/201805/21, 05/05/2017, 09/23/2016, Additional history exists DIABETES-URINE [...] of this encounter Results * SITE DIP,DIPSTICK ONLY(80826) (08/29/2017) Component Value Ref Range COLOR, UA [...] / Group Subscriber ID Type Phone Address [facility] [employer] [facility] [employer] [facility] EXTRA [id number] [phone] [place] [address] BEHAVIORAL MENTAL HEALTH INS [facility] SOLUTIONS [id number] as of this encounter"
--- OUTSIDE RECORDS SUMMARY | 2023-06-01 06:06 | External Medical Summary | Summary of Care ---
Author Name Unknown Organization [place] [address] Phone Care Team Providers Care Exterior Designer Name Role Phone Teddy De Oliveira MD Primary Care Provider [phone] Reason for Visit * Reason Comments eRx-Medication Refill Encounter Details Date Type Department Care Team Description 09/29/2017 Refill Family Practice [facility] 132 [facility] [place] [address] Teddy De Oliveira MD [address] [place] [address] [phone] Restless legs syndrome Allergies Active Allergy Reactions [...] LOCATED WITHIN [facility]) Use 3 times daily (for Lantus twice [...] [facility]) Inject 66 Units under the skin 2 [...] Active metFORMIN ER (GLUCOPHAGE XR) 500 MG [id number]:Unc ontrolled type 2 diabetes mellitus with stage 3 chronic kidney disease, with long-term current use of insulin ([facility]) Take 1 Tab by mouth daily. 30 Tab 11 07/14/2017 Active levothyroxine (LEVOXYL) 25 MCG TabletIndications:P ostsurgical hypothyroidism TAKE ONE TABLET BY MOUTH IN THE MORNING AT LEAST 30 MINUTES PRIOR TO BREAKFAST OR OTHER MEDS 90 Tab 0 08/02/2017 Active lisinopril (PRINIVIL) 10 MG TabletIndications:H TN, goal below 140/80 TAKE ONE TABLET BY MOUTH DAILY 90 Tab 0 08/02/2017 Active gabapentin (NEURONTIN) 100 MG CapsuleIndications: DM type 2 with diabetic peripheral neuropathy ([facility]) Take 1 Cap by mouth 3 times a day. 90 Cap 2 08/29/2017 Active rOPINIRole (REQUIP) 1 MG TabletIndications:R estless legs syndrome TAKE ONE TABLET BY MOUTH AT BEDTIME 30 Tab 5 09/29/2017 Active rOPINIRole (REQUIP) 1 MG TabletIndications:R estless legs syndrome TAKE ONE TABLET BY MOUTH AT BEDTIME 30 Tab 0 08/28/2017 8 Discontinued as of this encounter Active Problems Problem Noted Date Controlled substance agreement signed Body mass index (BMI) of 50.0 to 59.9 in adult ([facility]) 06/27/2017 Overview: Per Obesity protocol #1 - Per Obesity Taxonomy ICD-10 update of inactive term Uncontrolled type 2 diabetes mellitus with stage 3 chronic kidney disease, with long-term current use of insulin ([facility]) 05/24/2017 Gastroesophageal reflux disease with eso phagitis 03/04/2017 Restless legs syndrome 03/25/2016 Fibromyalgia 02/02/2016 Abnormality of gait 02/02/2016 Type 2 diabetes mellitus with hemoglobin A1c goal of 7.0%-8.0% ([facility]) 10/14/2014 Overview: ICD-10 update of inactive term Riddleton filter in place 08/19/2014 History of pulmonary [...] mass index (BMI) of 40.0-44.9 in adult ([facility] ) 08/17/2010 05/24/2017 Obesity, morbid (more than 1 00 lbs over ideal weight or BMI > 40) ([facility]) 12/23/2009 06/30/2017 Overview: Per Obesity Taxonomy ICD-10 update of inactive term HTN, GOAL BELOW 130/80 10/22/2009 2 Overview: Per HTN Taxonomy. Pneumonia in aspergillosis ([facility]) 09/14/2009 02/15/2017 Venous thrombosis 09/14/2009 10/15/2010 Respiratory failure, acute ([facility]) 09/14/2009 02/15/2017 Spontaneous pneumothorax 09/14/2009 017 Dysuria 08/23/2009 02/15/2017 Type 2 diabetes mellitus wit h hemoglobin A1c goal of less than 7.0% ([facility]) 07/10/2009 10/14/2014 Overview: Modified per Diabetes protocol #14. ICD-10 update of inactive term Dyslipidemia, goal LDL below 160 08/16/2007 09/04/2009 Overview: Per Lipid Taxonomy. HTN, goal below 140/90 04/09/2003 0 Overview: Per HTN Taxonomy. DM type 2, not at goal ([facility]) 05/29/2002 Overview: Modified per Diabetes protocol #14. [...] Encounter - Teddy De Oliveira MD - 09/29/2017 2:04 PM EST Signed Prescriptions: Disp Refills rOPINIRole (REQUIP) 1 MG Tablet 30 Tab 5 Sig: TAKE ONE TABLET BY MOUTH AT BEDTIME Authorizing Provider: TEDDY DE OLIVEIRA * Telephone Encounter - Jennifer Cesar LPN - 09/29/2017 1:50 PM EST Pending Prescriptions: Disp Refills rOPINIRole (REQUIP) 1 MG Tablet [Pharmacy*30 Tab 5 Sig: TAKE ONE TABLET BY MOUTH AT BEDTIME * Telephone Encounter - Flaca Real CHUYITA Amor - 09/29/2017 1:44 PM EST Pending Prescriptions: Disp Refills rOPINIRole (REQUIP) 1 MG Tablet [Pharmacy*30 Tab 5 Sig: TAKE ONE TABLET BY MOUTH AT BEDTIME * Telephone Encounter - Flaca Real CHUYITA Amor - 09/29/2017 1:43 PM EST Pending Prescriptions: Disp Refills rOPINIRole (REQUIP) 1 MG Tablet [Pharmacy*30 Tab 5 Sig: TAKE ONE TABLET BY MOUTH AT BEDTIME Last Office Visit: 08/29/2017 Next Office Visit: 11/15/2017 Scheduled Provider(s): Teddy De Oliveira MD Lr 12-3-17 in this encounter Plan of Treatment Upcoming Encounters Date Type Specialty Care Team Description 11/15/2017 Office Visit [facility] Teddy De Oliveira MD [address] [place] [place] [address] [phone] 01/10/2018 Office Visit Podiatry Frances Arias DPM [address] [place] [address] 2018 Office Visit Sleep Disorders Celsa Tafoya CRNP [address] [place] [address] [facility] [address] [place] [address] Health Maintenance Due Date Last Done Comments Yearly B-12 1955 CKD PHOS USE SMARTSET 84575 02/24/2010 12/0 09/2008, 08/25/2009, 08/25/2009, Additional history exists DIABETES-EYE EXAM 02/24/2011 02/24/2010 (Do ne elsewhere), 12/18/2009, 02/18/2008 (Done elsewhere) BREAST CANCER SCREENING DISC USSION YEARLY AGES 40-75 05/09/2016 05/09/2015, 07/12/2014, 07/04/2014, Additional history exists PAP SMEAR-EVERY 3 YRS,AGES 21-65 05/11/2016 05/11/2013, 03/01/2008, 10/19/2006, Additional history exists DIABETES-FOOT EXAM 10/21/2017 10/21/2016, 0 12/11/2015, 02/22/2014, Additional history exists CKD GFR USE SMARTSET 96623 01/12/201807/14, 05/21/2017, 05/05/2017, Additional history exists DIABETES-HGBA1C EVERY 6 MONTHS 01/12/2018 1 , 05/05/2017, 03/03/2017, Additional history exists CKD HGB USE SMARTSET 56935 05/21/201805/21, 05/05/2017, 09/23/2016, Additional history exists DIABETES-URINE [...] Restless legs syndrome (RLS) in this encounter Insurance Payer Benefit Plan / Group Subscriber ID Type Phone Address [facility] [email or web address] [facility] EXTRA [id number] [phone] [facility] [place] [address] BEHAVIORAL MENTAL HEALTH INS [employer] [id number] as of this encounter
--- OUTSIDE RECORDS SUMMARY | 2023-06-01 06:06 | External Medical Summary ---
Author Name Unknown Address [facility] [place] [address] Phone Organization K01:[place] [address] [place] [id number] Laboratory Report Ordering Provider Test Date Status PRINCE KASI 07/14/2017 12:35:00 Final Observation Date Value Abnormality Reference Status HbA1C 07/14/2017 18:00 9.3 Above high normal 4.0-6 .4 Final Performing Location [facility] [address] [facility] [address]
--- OUTSIDE RECORDS SUMMARY | 2023-06-01 06:06 | External Medical Summary | Summary of Care ---
Author Name Unknown Organization [place] [address] Phone Care Team Providers Care Voting Machine Repairer Name Role Phone Teddy De Oliveira MD Primary Care Provider [phone] Reason for Visit * Reason Comments eRx-Medication Refill Encounter Details Date Type Department Care Team Description 08/26/2017 Refill Family Practice [facility] 132 [facility] [place] [address] Teddy De Oliveira MD 132 [place] [address] [phone] Restless legs syndrome Allergies Active Allergy Reactions [...] goal of 7.0%-8.0% ([facility]) Use 3 times daily (for Lantus twice [...] of 7.0%-8.0% ([facility]) Inject 66 Units under the skin 2 [...] Active metFORMIN ER (GLUCOPHAGE XR) 500 MG [id number]:Uncon trolled type 2 diabetes mellitus with stage 3 chronic kidney disease, with long-term current use of insulin ([facility]) Take 1 Tab [...] Encounter - Teddy De Oliveira MD - 08/28/2017 4:41 PM EST Signed Prescriptions: Disp Refills rOPINIRole (REQUIP) 1 MG Tablet 30 Tab 0 Sig: TAKE ONE TABLET BY MOUTH AT BEDTIME Authorizing Provider: TEDDY DE OLIVEIRA * Telephone Encounter - Mattie Hilario LPN - 08/26/2017 2:23 PM EST Pending Prescriptions: Disp Refills rOPINIRole (REQUIP) 1 MG Tablet [Pharmacy*30 Tab 0 Sig: TAKE ONE TABLET BY MOUTH AT BEDTIME * Telephone Encounter - Angi Hunt LPN - 08/26/2017 1:55 PM EST Pending Prescriptions: Disp Refills rOPINIRole (REQUIP) 1 MG Tablet [Pharmacy*30 Tab 0 Sig: TAKE ONE TABLET BY MOUTH AT BEDTIME * Telephone Encounter - Angi Hunt LPN - 08/26/2017 1:55 PM EST Pending Prescriptions: Disp Refills rOPINIRole (REQUIP) 1 MG Tablet [Pharmacy*30 Tab 0 Sig: TAKE ONE TABLET BY MOUTH AT BEDTIME Last Office Visit: 07/14/2017 Next Office Visit: 11/15/2017 Scheduled Provider(s): Teddy De Oliveira MD If no future appointments scheduled, and last appointment is greater than a year ago, please schedule patient for a follow-up appointment Last date the medication was ordered: 06/28/17 Phone number(s): There are no phone numbers [...] Status 07/14/17 12:35P 07/14/17 9.3* FINAL HEMOGLOBIN, [id number] LAB(%) Nessa Dt/Tm Resulted Value Status 05/05/17 05/06/17 9.7* FINAL HEMOGLOBIN, A1C(%) Nessa Dt/Tm Resulted Value Status 03/03/17 12:38P 03/03/17 9.3* FINAL in this encounter Plan of Treatment Upcoming Encounters Date Type Specialty Care Team Description 11/15/2017 Office Visit Family Practice Teddy De Oliveira MD [address] [place] [address] 01/10/2018 Office Visit Podiatry Frances Arias DPM [address] [place] [address] 2018 Office Visit Sleep Disorders Celsa Tafoya CRNP [address] [place] [address] [phone] Nurse [facility] [address] [place] [address] [phone] Health Maintenance Due Date Last Done Comments CKD PHOS USE SMARTSET 52834 02/24/2010 12/0 09/2008, 08/25/2009, 08/25/2009, Additional history exists DIABETES-EYE EXAM 02/24/2011 02/24/2010 (Do ne elsewhere), 12/18/2009, 02/18/2008 (Done elsewhere) BREAST CANCER SCREENING DISC USSION YEARLY AGES 40-75 05/09/2016 05/09/2015, 07/12/2014, 07/04/2014, Additional history exists PAP SMEAR-EVERY 3 YRS,AGES 21-65 05/11/2016 05/11/2013, 03/01/2008, 10/19/2006, Additional history exists DIABETES-FOOT EXAM 10/21/2017 10/21/2016, 0 12/11/2015, 02/22/2014, Additional history exists CKD GFR USE SMARTSET 60868 01/12/201807/14, 05/21/2017, 05/05/2017, Additional history exists DIABETES-HGBA1C EVERY 6 MONTHS 01/12/2018 1 , 05/05/2017, 03/03/2017, Additional history exists CKD HGB USE SMARTSET 67885 05/21/201805/21, 05/05/2017, 09/23/2016, Additional history exists DIABETES-URINE [...] / Group Subscriber ID Type Phone Address [facility] [employer] [facility] EXTRA [id number] [phone] [place] [address] BEHAVIORAL MENTAL HEALTH INS [facility] [id number] as of this encounter
--- OUTSIDE RECORDS SUMMARY | 2023-06-01 06:06 | External Medical Summary ---
Author Name Unknown Address Unknown Organization [id number]:Performed at [place] [address] [place] [facility] [place] [address] Laboratory Report Ordering Provider Test Date Status OPAL ESCOBAR 08/29/2017 17:43:00 Final Observation Date Value Abnormality Reference Status Source 08/30/2017 09:22 CLEAN CATCH URINE Final Bacteria identified in Unspecified specimen by Culture 08/31/2017 10:57 >100,000 COLONIES/ML ESCHERICHIA COLI Abnormal Final Bacteria identified in Unspecified specimen by Culture 08/31/2017 10:57 LESS THAN 10,000 COLONIES/ML MIXED NORMAL MELISSA Final REPORT STATUS 09/01/2017 16:37 09/01/2017 FINAL Final Bacteria identified in Isolate by Culture 09/01/2017 14:30 ESCHERICHIA COLI Abnormal Final Performing Location Performed at [facility] [address] [facility] [address]
--- OUTSIDE RECORDS SUMMARY | 2023-06-01 06:07 | External Medical Summary ---
Author Name Unknown Address Unknown Organization : Laboratory Report Ordering Provider Test Date Status JUAN VASQUEZ 02/15/2017 18:00:00 Final Observation Date Value Abnormality Reference Status Source 02/16/2017 09:31 CLEAN CATCH URINE Final Bacteria identified in Unspecified specimen by Culture 02/19/2017 11:09 10,000 TO 100,000 COLONIES/ML KLEBSIELLA PNEUMONIAE Abnormal Final Bacteria identified in Unspecified specimen by Culture 02/19/2017 11:09 LESS THAN 10,000 COLONIES/ML MIXED NORMAL MELISSA Final REPORT STATUS 02/19/2017 15:49 02/19/2017 FINAL Final Bacteria identified in Isolate by Culture 02/19/2017 11:09 KLEBSIELLA PNEUMONIAE Abnormal Final Performing Location
--- OUTSIDE RECORDS SUMMARY | 2023-06-01 06:07 | External Medical Summary ---
Author Name Unknown Address [address] [facility] [place] [address] Phone Organization K0G:TRINY Bobo Ordaz [address] [facility] [place] [address] Laboratory Report Ordering Provider Test Date Status PRINCE KASI 03/03/2017 12:38:00 Final Observation Date Value Abnormality Reference Status BUN 03/03/2017 15:44 38 Above high normal 6-20 Final Creatinine 03/03/2017 15:44 1.3 Above high normal 0.5- 1.0 Final Performing Location [facility] [employer] [address] [place] [address]
--- OUTSIDE RECORDS SUMMARY | 2023-06-01 06:07 | External Medical Summary ---
Author Name Unknown Address [address] [place] [address] Phone Organization K0G:[facility] [place] [address] Laboratory Report Ordering Provider Test Date Status DANIELLE BENJAMIN MD 07/07/2016 11:37:00 Final Obs # Observation Date Value Abnormality Reference Status Performing Location 0 ESR 07/07/2016 13:07 31 Above high normal 0-20 Final [facility] Jeramie Barnesgail [place] [address]
--- OUTSIDE RECORDS SUMMARY | 2023-06-01 06:07 | External Medical Summary ---
Author Name Unknown Address [facility] [address] [place] [id number] Phone Organization K01:[place] [address] [facility] [address] Laboratory Report Ordering Provider Test Date Status PRINCE TNOY VILLASEÑOR 10/28/2016 13:24:00 Final Obs # Observation Date Value Abnormality Reference Status Performing Location 0 HbA1C 10/28/2016 23:43 8.5 Above high normal 4.0-6.4 Final [facility] [address] [facility] [address]
--- OUTSIDE RECORDS SUMMARY | 2023-06-01 06:07 | External Medical Summary ---
Author Name Unknown Address [address] [facility] [place] [facility] Phone Organization K01:[facility] [address] [facility] [address] Laboratory Report Ordering Provider Test Date Status PRINCE TONY [place]ILL[place]ÑOR 06/24/2016 15:28:00 Final Obs # Observation Date Value Abnormality Reference Status Performing Location 0 Albumin, Urine 06/24/2016 23:11 <1.20 Final [facility] [address] [facility] [address] 1 Creatinine [Moles/volume] in Urine 06/24/2016 23:11 98 Final 2 Microalbumin / Creatinine Ratio 06/24/2016 23:11 <12 <30 Final
--- OUTSIDE RECORDS SUMMARY | 2023-06-01 06:07 | External Medical Summary ---
Author Name Unknown Address [address] [place] [address] Phone Organization K0G:[facility] Jeramie Ordaz [address] [facility] [place] [address] Laboratory Report Ordering Provider Test Date Status OPAL ESCOBAR 09/23/2016 11:23:00 Final Obs # Observation Date Value Abnormality Reference Status Performing Location 0 BUN 09/23/2016 12:09 31 Above high normal 6-20 Final [facility] Jeramie Ordaz [address] [facility] [place] [address] 1 Creatinine 09/23/2016 12:09 1.6 Above high normal 0.5-1.0 Final
--- OUTSIDE RECORDS SUMMARY | 2023-06-01 06:07 | External Medical Summary ---
Author Name Unknown Address [address] [facility] [place] [address] Phone Organization K01:[facility] [address] [facility] [place] [address] Laboratory Report Ordering Provider Test Date Status PRINCE KASI 03/03/2017 12:37:00 Final Observation Date Value Abnormality Reference Status Albumin, Urine 03/03/2017 22:04 <1.20 Final Creatinine [Moles/volume] in Urine 03/03/2017 22:04 81 Final Microalbumin / Creatinine Ratio 03/03/2017 22:04 <15 <30 Final Performing Location [facility] [address] [facility] [address]
--- OUTSIDE RECORDS SUMMARY | 2023-06-01 06:07 | External Medical Summary ---
Author Name Unknown Address [address] [place] [address] Phone Organization K01:[facility] [address] [facility] [address] Laboratory Report Ordering Provider Test Date Status MICHELLE LOPEZ PAC 07/05/2016 18:07:00 Final Obs # Observation Date Value Abnormality Reference Status Performing Location 0 WBC, Total 6 22:14 12.62 Above high normal 4.00-10.80 Final [facility] [address] [facility] [address] 1 RBC 6 22:14 4.54 3.85-5.15 Final 2 Hemoglobin 22:14 13.5 12.0-15.3 Final 3 HCT 6 22:14 42.3 36.0-45.2 Final 4 MCV 6 22:14 93.2 81.5-97.5 Final 5 MCH 6 22:14 29.7 27.0-34.0 Final 6 MCHC 6 22:14 31.9 Below low normal 32.0-36.0 Final 7 RDW 22:14 14.4 11.5-15.5 Final 8 Platelets 6 22:14 294 140-400 Final 9 MPV 6 22:14 10.4 6.6-11.1 Final 10 NEUT 6 22:14 68.0 40-75 Final 11 Lymphs % 22:14 21.2 18-42 Final 12 Monos 6 22:14 4.9 1-11 Final 13 Eosinophils 6 22:14 3.5 0-6 Final 14 Basos 22:14 1.0 0-2 Final 15 Immature Granulocyte, Percent 22:14 1.4 0-2 Final 16 ANEUT 10/10/201 6 22:14 8.58 Above high normal 1.8-7.7 Final 17 Lymphs, absolute 6 22:14 2.68 1.0-4.8 Final 18 Monos, Abs 6 22:14 0.62 0.0-1.1 Final 19 Eos, Abs 6 22:14 0.44 0.0-0.7 Final 20 Basos, Abs 22:14 0.12 0.0-0.2 Final 21 Immature Granulocytes, Number 6 22:14 0.18 0.0-0.2 Final
--- OUTSIDE RECORDS SUMMARY | 2023-06-01 06:07 | External Medical Summary ---
Author Name Unknown Address [address] [place] [id number] Phone Organization [facility] [address] [place] [id number] Laboratory Report Ordering Provider Test Date Status ROJAS YEUNG MD 09/02/2016 10:44:00 Final Obs # Observation Date Value Abnormality Reference Status Performing Location 0 C4 09/02/2016 17:29 25 10-40 Final [facility] [address] [facility] [address]
--- OUTSIDE RECORDS SUMMARY | 2023-06-01 06:07 | External Medical Summary ---
Author Name Unknown Address [address] [place] [phone] Phone Organization K01[facility] [address] [facility] [address] Laboratory Report Ordering Provider Test Date Status PRINCE TONY VILLASEÑOR 10/28/2016 13:24:00 Final Obs # Observation Date Value Abnormality Reference Status Performing Location 0 LDL, (direct) 10/28/2016 23:49 119 0-129 Final [facility] [address] [facility] [address]
--- OUTSIDE RECORDS SUMMARY | 2023-06-01 06:07 | External Medical Summary ---
Author Name Unknown Address [address] [place] [address] Phone Organization [id number]:[facility] Jeramie Ordaz 132 [facility] [place] [address] Laboratory Report Ordering Provider Test Date Status PRINCE TONY VILLASEÑOR 10/28/2016 13:24:00 Final Obs # Observation Date Value Abnormality Reference Status Performing Location 0 BUN 10/28/2016 14:35 17 6-20 Final [facility] Jeramie Ordaz [address] [place] [address] 1 Creatinine 10/28/2016 14:35 1.1 Above high normal 0.5-1.0 Final
--- OUTSIDE RECORDS SUMMARY | 2023-06-01 06:07 | External Medical Summary ---
Author Name Unknown Address [facility] [place] [address] Phone Organization K01:[place] [address] [address] [place] [address] Laboratory Report Ordering Provider Test Date Status ROJAS YEUNG MD 09/02/2016 10:44:00 Final Obs # Observation Date Value Abnormality Reference Status Performing Location 0 Neutrophil cytoplasmic Ab [Presence] in Serum by Immunofluorescence 016 12:53 NEGATIVE NEG Final [place] [address] [address] [facility] [address] 1 Neutrophil cytoplasmic Ab [Presence] in Serum by Immunofluorescence 016 12:53 NEGATIVE NEG Final 2 Testosterone Comment 016 12:53 Negative for ANCA Final
--- OUTSIDE RECORDS SUMMARY | 2023-06-01 06:07 | External Medical Summary ---
Author Name Unknown Address [address] [address] Phone Organization K0G:[facility] Jeramie Ordaz [address] [place] [address] Laboratory Report Ordering Provider Test Date Status OPAL ESCOBAR PAC 09/23/2016 11:23:00 Final Obs # Observation Date Value Abnormality Reference Status Performing Location 0 WBC, Total 6 12:10 11.71 Above high normal 4.00-10.80 Final G Jeramie Ordaz [address] [place] [address] 1 RBC 6 12:10 4.60 3.85-5.15 Final 2 Hemoglobin 6 12:10 14.0 12.0-15.3 Final 3 HCT 6 12:10 42.8 36.0-45.2 Final 4 MCV 6 12:10 93.0 81.5-97.5 Final 5 MCH 6 12:10 30.4 27.0-34.0 Final 6 MCHC 6 12:10 32.7 32.0-36.0 Final 7 RDW 6 12:10 14.6 11.5-15.5 Final 8 Platelets 6 12:10 373 140-400 Final 9 MPV 6 12:10 9.5 6.6-11.1 Final 10 NEUT 6 12:10 71.2 40-75 Final 11 Lymphs % 6 12:10 18.0 18-42 Final 12 Monos 6 12:10 5.6 1-11 Final 13 Eosinophils 6 12:10 4.3 0-6 Final 14 Basos 6 12:10 0.9 0-2 Final 15 ANEUT 6 12:10 8.35 Above high normal 1.8-7.7 Final 16 Lymphs, absolute 6 12:10 2.11 1.0-4.8 Final 17 Monos, Abs 6 12:10 0.65 0.0-1.1 Final 18 Eos, Abs 6 12:10 0.50 0.0-0.7 Final 19 Basos, Abs 6 12:10 0.10 0.0-0.2 Final
--- OUTSIDE RECORDS SUMMARY | 2023-06-01 06:07 | External Medical Summary ---
Author Name Unknown Address [facility] [address] [place] [phone] Phone Organization K01:[facility] [address] [phone] Laboratory Report Ordering Provider Test Date Status ROJAS YEUNG MD 09/02/2016 10:44:00 Final Obs # Observation Date Value Abnormality Reference Status Performing Location 0 BEL, RASHAD Screen 6 10:50 NEGATIVE Final [facility] [address] [facility] [address]
--- OUTSIDE RECORDS SUMMARY | 2023-06-01 06:07 | External Medical Summary ---
Author Name Unknown Address [facility] [address] [place] [phone] Phone Organization K01:[place] [address] [address] [facility] [address] Laboratory Report Ordering Provider Test Date Status MICHELLE LOPEZ 07/05/2016 18:07:00 Final Obs # Observation Date Value Abnormality Reference Status Performing Location 0 BUN 07/05/2016 22:28 32 Above high normal 6-20 Final [facility] [address] [facility] [address] 1 Creatinine 07/05/2016 22:28 1.6 Above high normal 0.5-1.0 Final
--- OUTSIDE RECORDS SUMMARY | 2023-06-01 06:07 | External Medical Summary ---
Author Name Unknown Address 132 [facility] [place] [address] Phone Organization K0G:TRINY Ordaz 132 [facility] [place] [address] Laboratory Report Ordering Provider Test Date Status PRINCE TONY VILLASEÑOR 10/28/2016 13:24:00 Final Obs # Observation Date Value Abnormality Reference Status Performing Location 0 ALT (Alanine aminotransferase) 10/28/2016 14:35 21 10-35 Final [facility] Jeramie Ordaz 132 [facility] [place] [address]
--- OUTSIDE RECORDS SUMMARY | 2023-06-01 06:07 | External Medical Summary ---
Author Name Unknown Address [address] [place] [address] Phone Organization [id number]:[facility] Jeramie John [facility] [place] [address] Laboratory Report Ordering Provider Test Date Status DANIELLE BENJAMIN MD 07/07/2016 11:37:00 Final Obs # Observation Date Value Abnormality Reference Status Performing Location 0 BUN 07/07/2016 12:54 23 Above high normal 6-20 Final [facility] Jeramie Ordaz [address] [place] [address] 1 Creatinine 07/07/2016 12:54 1.0 0.5-1.0 Final
--- OUTSIDE RECORDS SUMMARY | 2023-06-01 06:07 | External Medical Summary ---
Author Name Unknown Address [facility] [place] [address] Phone Organization K01:[place] [address] [address] [place] [id number] Laboratory Report Ordering Provider Test Date Status PRINCE KASI 03/03/2017 12:38:00 Final Observation Date Value Abnormality Reference Status Parathyrin.intact [Mass/volu me] in Serum or Plasma 03/04/2017 08:46 19 15-65 Final Performing Location [address] [address]
--- OUTSIDE RECORDS SUMMARY | 2023-06-01 06:07 | External Medical Summary ---
Author Name Unknown Address [facility] [address] [place] [phone] Phone Organization K01:[place] [address] [address] [place] [phone] Laboratory Report Ordering Provider Test Date Status PRINCE KASI 03/03/2017 12:38:00 Final Observation Date Value Abnormality Reference Status TSH 03/03/2017 22:00 0.60 0.27-4.2 Fin al Performing Location [address] [address]
--- OUTSIDE RECORDS SUMMARY | 2023-06-01 06:07 | External Medical Summary ---
Author Name Unknown Address [facility] [address] [place] [phone] Phone Organization K01:[facility] [address] [facility] [address] Laboratory Report Ordering Provider Test Date Status ROJAS YEUNG MD 09/02/2016 10:44:00 Final Obs # Observation Date Value Abnormality Reference Status Performing Location 0 Cryoglobulin [Presence] in Serum by 3 day cold incubation 09/06/20 16 09:57 NOT DETECTED XDET Final [place] [address] [address] [facility] [address]
--- OUTSIDE RECORDS SUMMARY | 2023-06-01 06:07 | External Medical Summary ---
Author Name Unknown Address [facility] [address] [place] [phone] Phone Organization K01:[facility] [address] [place] [address] Laboratory Report Ordering Provider Test Date Status ROJAS YEUNG MD 09/02/2016 10:44:00 Final Obs # Observation Date Value Abnormality Reference Status Performing Location 0 Protein 2015 16:52 7.1 6.0-8.3 Final [place] [address] [address] [facility] [address] 1 Albumin/Protein.to geovanny [Pure mass fraction] in Serum or Plasma by Electrophoresis 2015 15:02 3.20 Below low normal 3.3-4.4 Final 2 Alpha 1 globulin/Protein.t otal [Pure mass fraction] in Serum or Plasma by Electrophoresis 2015 15:02 0.21 0.1-0.3 Final 3 Alpha 2 globulin/Protein.t otal [Pure mass fraction] in Serum or Plasma by Electrophoresis 2015 15:02 1.06 Above high normal 0.6-1.0 Final 4 Beta globulin/Protein.t otal [Pure mass fraction] in Serum or Plasma by Electrophoresis 2015 15:02 1.10 0.8-1.3 Final 5 Gamma globulin/Protein.t otal [Pure mass fraction] in Serum or Plasma by Electrophoresis 2015 15:02 1.53 0.7-1.7 Final 6 Protein Fractions [Interpretation] in Serum or Plasma by Electrophoresis Narrative 2015 15:02 NO PARAPROTEIN IS DETECTED. Final 7 SPEP interpretation 2015 15:[address] Antione RYAN Final
--- OUTSIDE RECORDS SUMMARY | 2023-06-01 06:07 | External Medical Summary ---
Author Name Unknown Address [address] [address] Phone Organization K0G:TRINY Ordaz [address] [place] [address] Laboratory Report Ordering Provider Test Date Status DANIELLE BENJAMIN MD 07/07/2016 11:37:00 Final Obs # Observation Date Value Abnormality Reference Status Performing Location 0 WBC, Total 07/07/2016 12:13 10.00 4.00-10.80 Final [facility] Jeramie Ordaz [address] [place] [address] 1 RBC 07/07/2016 12:13 4.39 3.85-5.15 Final 2 Hemoglobin 07/07/2016 12:13 13.2 12.0-15.3 Final 3 HCT 07/07/2016 12:13 40.9 36.0-45.2 Final 4 MCV 07/07/2016 12:13 93.2 81.5-97.5 Final 5 MCH 07/07/2016 12:13 30.1 27.0-34.0 Final 6 MCHC 07/07/2016 12:13 32.3 32.0-36.0 Final 7 RDW 07/07/2016 12:13 14.5 11.5-15.5 Final 8 Platelets 07/07/2016 12:13 313 140-400 Final 9 MPV 07/07/2016 12:13 10.0 6.6-11.1 Final 10 NEUT 07/07/2016 13:02 72.7 40-75 Final 11 Lymphs % 07/07/2016 13:02 18.3 18-42 Final 12 Monos 07/07/2016 13:02 4.9 1-11 Final 13 Eosinophils 07/07/2016 13:02 3.5 0-6 Final 14 Basos 07/07/2016 13:02 0.6 0-2 Final 15 ANEUT 07/07/2016 13:02 7.27 1.8-7.7 Final 16 Lymphs, absolute 07/07/2016 13:02 1.83 1.0-4.8 Final 17 Monos, Abs 07/07/2016 13:02 0.49 0.0-1.1 Final 18 Eos, Abs 07/07/2016 13:02 0.35 0.0-0.7 Final 19 Basos, Abs 07/07/2016 13:02 0.06 0.0-0.2 Final
--- OUTSIDE RECORDS SUMMARY | 2023-06-01 06:07 | External Medical Summary ---
Author Name Unknown Address [facility] [place] [address] Phone Organization K01:[place] [address] [address] [place] [phone] Laboratory Report Ordering Provider Test Date Status PRINCE KASI 03/03/2017 12:38:00 Final Observation Date Value Abnormality Reference Status HbA1C 03/03/2017 22:19 9.3 Above high normal 4.0-6 .4 Final Performing Location [place] [address] [address] [facility] [address]
--- OUTSIDE RECORDS SUMMARY | 2023-06-01 06:07 | External Medical Summary ---
Author Name Unknown Address [address] [place] [address] Phone Organization K0G:[facility]amie Ordaz [facility] [place] [address] Laboratory Report Ordering Provider Test Date Status OPAL ESCOBAR 09/23/2016 11:23:00 Final Obs # Observation Date Value Abnormality Reference Status Performing Location 0 CK 09/23/2016 12:09 241 Above high normal 26-192 Final [facility] Jeramie Ordaz [address] [place] [address]
--- OUTSIDE RECORDS SUMMARY | 2023-06-01 06:07 | External Medical Summary ---
Author Name Unknown Address [facility] [place] [address] Phone Organization K01:[place] [address] [address] [place] [phone] Laboratory Report Ordering Provider Test Date Status ROJAS YEUNG MD 09/02/2016 10:44:00 Final Obs # Observation Date Value Abnormality Reference Status Performing Location 0 Complement C3c [Mass/volume] in Serum or Plasma 09/02/2016 17:29 146 90-[address] [address]
--- OUTSIDE RECORDS SUMMARY | 2023-06-01 06:07 | External Medical Summary ---
Author Name Unknown Address [place] [address] Phone Organization K01:[facility] [address] [place] [phone] Laboratory Report Ordering Provider Test Date Status PRINCE TONY VILLASEÑOR 06/24/2016 15:24:00 Final Obs # Observation Date Value Abnormality Reference Status Performing Location 0 ALT (Alanine aminotransferase) 06/24/2016 22:37 28 10-35 Final [facility] 100 [address] [facility] [address]
--- OUTSIDE RECORDS SUMMARY | 2023-06-01 06:07 | External Medical Summary ---
Author Name Unknown Address [facility] [address] [place] [phone] Phone Organization K01:[place] [address] [address] [facility] [address] Laboratory Report Ordering Provider Test Date Status PRINCE TONY VILLASEÑOR 06/24/2016 15:24:00 Final Obs # Observation Date Value Abnormality Reference Status Performing Location 0 HbA1C 06/24/2016 22:38 8.5 Above high normal 4.0-6.4 Final [facility] [address] [facility] [address]
--- OUTSIDE RECORDS SUMMARY | 2023-06-01 06:08 | External Medical Summary ---
Author Name Unknown Address [address] [place] [address] Organization [facility] [address] [place] [address] Laboratory Report Ordering Provider Test Date Status PRINCE TONY VILLASEÑOR [id number] Final Obs # Observation Date Value Abnormality Reference Status Performing Location 0 Albumin, Urine [id number] <1.20 Heather l [address] [address] 1 Creatinine, Urine 241112241218 93 F inal [address] [address] 2 Microalbumin / Creatinine Ratio [id number] <13 <[address] [address]
--- OUTSIDE RECORDS SUMMARY | 2023-06-01 06:08 | External Medical Summary ---
Author Name Unknown Address [address] [place] [address] Phone Organization K09:[facility] [address] [facility] [address] [place] [address] Laboratory Report Ordering Provider Test Date Status PRINCE TONY VILLASEÑOR [id number] Final Obs # Observation Date Value Abnormality Reference Status Performing Location 0 BUN [id number] 23 Above high normal 6-20 Final [facility] [address] [place] [address] 1 Creatinine [id number] 0.9 0.5-1.1 Final [facility] [address] [place] [address]
--- OUTSIDE RECORDS SUMMARY | 2023-06-01 06:08 | External Medical Summary ---
Author Name Unknown Address 132 [facility] [place] [address] Phone Organization K0G:[facility] Jeramie Ordaz 132 [place] [address] Laboratory Report Ordering Provider Test Date Status SILVERIO AMADOR III, [place] [id number] Final Obs # Observation Date Value Abnormality Reference Status Performing Location 0 specimen [id number] URINE Final [facility] Jeramie Ordaz [address] [place] [address] 1 result [id number] LESS THAN 10,000 COLONIES/ ML MIXED MELISSA Final [facility] Jeramie Ordaz [address] [place] [address] 2 report status [id number] 5 FINAL Final [facility] Jeramie Ordaz [address] [place] [address]
--- OUTSIDE RECORDS SUMMARY | 2023-06-01 06:08 | External Medical Summary ---
Author Name Unknown Address [facility] [address] [place] [phone] Phone Organization K01:[place] [address] [address] [facility] [address] Laboratory Report Ordering Provider Test Date Status PRINCE TONY VILLASEÑOR 03/25/2016 14:13:00 Final Obs # Observation Date Value Abnormality Reference Status Performing Location 0 HbA1C 03/25/2016 23:45 9.2 Above high normal 4.0-6.4 Final [facility] [address] [facility] [address]
--- OUTSIDE RECORDS SUMMARY | 2023-06-01 06:08 | External Medical Summary ---
Author Name Unknown Address [facility] [place] [address] Phone Organization K01:[facility] [address] [place] [address] Laboratory Report Ordering Provider Test Date Status PRINCE TONY VILLASEÑOR [id number] Final Obs # Observation Date Value Abnormality Reference Status Performing Location 0 Alanine aminotransferase [Enzymatic activity/volume] in Serum or Plasma by With P-5'-P 074803058684 Final [facility] 100 [address] [facility] [address]
--- OUTSIDE RECORDS SUMMARY | 2023-06-01 06:08 | External Medical Summary ---
Author Name Unknown Address Unknown Organization : Laboratory Report Ordering Provider Test Date Status OPAL ESCOBAR [id number] Final Obs # Observation Date Value Abnormality Reference Status Performing Location 0 specimen [id number] CLEAN CATCH URINE Final 1 result [id number] 10,000 TO 100,000 COLONIES/ML BETA STREPTOCOCCUS GROUP B Final 2 result [id number] LESS THAN 10,000 COLONIES/ML MIXED MELISSA Final 3 report status [id number] 12/05/2015 FINAL Final 4 Bacteria identified in Unspecified specimen by Culture [id number] BETA STREPTOCOCCUS GROUP B Abnormal Final
--- OUTSIDE RECORDS SUMMARY | 2023-06-01 06:08 | External Medical Summary ---
Author Name Unknown Organization K01:[facility], [address] [address] Laboratory Report Ordering Provider Test Date Status KASI VELEZ MD 10/10/2014 14:32:00-0500 Final Obs # Observation Date Value ABNL Reference Status Pe rforming Location 1 HbA1C 10/11/2014 08:56-0500 7.3 H 4.0-6.4 % Final 2 Glucose, estimated average 10/11/2014 08:56-0500 163 H <126 MG/DL Final
--- OUTSIDE RECORDS SUMMARY | 2023-06-01 06:08 | External Medical Summary ---
Author Name Unknown Address [address] [place] [phone] Phone Organization K01:[facility] [address] [facility] [address] Laboratory Report Ordering Provider Test Date Status PRINCE TONY VILLASEÑOR 03/25/2016 14:13:00 Final Obs # Observation Date Value Abnormality Reference Status Performing Location 0 TSH 03/26/2016 01:57 1.87 0.27-4.2 Final [facility] [place] [address] [facility] [address]
--- OUTSIDE RECORDS SUMMARY | 2023-06-01 06:08 | External Medical Summary ---
Author Name Unknown Address [address] [place] [address] Phone Organization K0G:[facility] Jeramie Ordaz 132 [facility] [place] [address] Laboratory Report Ordering Provider Test Date Status PRINCE TONY VILLASEÑOR 03/25/2016 14:13:00 Final Obs # Observation Date Value Abnormality Reference Status Performing Location 0 BUN 03/25/2016 15:13 26 Above high normal 6-20 Final [facility] Jeramie Ordaz [address] [place] [address] 1 Creatinine 03/25/2016 15:13 1.1 Above high normal 0.5-1.0 Final
--- OUTSIDE RECORDS SUMMARY | 2023-06-01 06:08 | External Medical Summary ---
Author Name Unknown Address [facility] N [place] [phone] Phone Organization K01:[facility] [address] [place] [phone] Laboratory Report Ordering Provider Test Date Status PRINCE TONY VILLASEÑOR [id number] Final Obs # Observation Date Value Abnormality Reference Status Performing Location 0 HbA1C [id number] 8.2 Above high normal 4.0-6.4 Final [facility] [address] [facility] [address] 1 Glucose, estimated average 868586068218 189 Above high normal <126 Final [facility] [address] [facility] [address]
--- OUTSIDE RECORDS SUMMARY | 2023-06-01 06:08 | External Medical Summary ---
Author Name Unknown Address [address] [phone] Phone Organization K01:[facility] [address] [place] 0339122 Laboratory Report Ordering Provider Test Date Status VESTA HUDSON 03/12/2016 11:20:00 Final Obs # Observation Date Value Abnormality Reference Status Performing Location 0 Ferritin 03/12/2016 18:07 41.8 13-150 Final [facility] [address] [facility] [address]
--- OUTSIDE RECORDS SUMMARY | 2023-06-01 06:08 | External Medical Summary ---
Author Name Unknown Address [address] [phone] Phone Organization K01:[facility] [address] [facility] [address] Laboratory Report Ordering Provider Test Date Status PRINCE TONY VILLASEÑOR [id number] Final Obs # Observation Date Value Abnormality Reference Status Performing Location 0 HbA1C 974561670490 8.8 Above high normal 4.0-6.4 Final [facility] [address] [facility] [address]
--- OUTSIDE RECORDS SUMMARY | 2023-06-01 06:08 | External Medical Summary ---
Author Name Unknown Address [address] [place] [address] [phone] Phone Organization K01:[facility] [address] [place] 7793722 Laboratory Report Ordering Provider Test Date Status PRINCE TONY VILLASEÑOR [id number] Final Obs # Observation Date Value Abnormality Reference Status Performing Location 0 LDL, (direct) [id number] 120 0-129 Final [facility] [address] [facility] [address]
--- OUTSIDE RECORDS SUMMARY | 2023-06-01 06:08 | External Medical Summary ---
Author Name Unknown Organization K01:[facility], [address] [address] [address] Laboratory Report Ordering Provider Test Date Status KASI VELEZ MD 01/08/2015 11:36:00-0400 Final Obs # Observation Date Value ABNL Reference Status Pe rforming Location 1 HbA1C 01/08/2015 18:58-0400 7.0 H 4.0-6.4 % Final 2 Glucose, estimated average 01/08/2015 18:58-0400 154 H <126 MG/DL Final
--- OUTSIDE RECORDS SUMMARY | 2023-06-01 06:08 | External Medical Summary ---
Author Name Unknown Address [address] [place] [phone] Phone Organization K01:[facility] [address] [facility] [address] Laboratory Report Ordering Provider Test Date Status PRINCE TONY VILLASEÑOR [id number] Final Obs # Observation Date Value Abnormality Reference Status Performing Location 0 LDL, (direct) [id number] 115 0-129 Final [facility] [address] [facility] [address]
--- OUTSIDE RECORDS SUMMARY | 2023-06-01 06:08 | External Medical Summary ---
Author Name Unknown Organization K0G:[facility], [address] [place] [address] [place] [address] Laboratory Report Ordering Provider Test Date Status KASI VELEZ MD 01/08/2015 11:36:00-0400 Final Obs # Observation Date Value ABNL Reference Status Pe rforming Location 1 ALT (Alanine aminotransferase) 01/08/2015 14:41-0400 14 10-35 U/L Final
--- OUTSIDE RECORDS SUMMARY | 2023-06-01 06:08 | External Medical Summary ---
Author Name Unknown Address [facility] [place] [address] Phone Organization K01:[place] [address] [address] [place] [address] Laboratory Report Ordering Provider Test Date Status PRINCE TONY VILLASEÑOR [id number] Final Obs # Observation Date Value Abnormality Reference Status Performing Location 0 Alanine aminotransferase [Enzymatic activity/volume] in Serum or Plasma by With P-5'-P 080810184218 Final [address] [address]
--- OUTSIDE RECORDS SUMMARY | 2023-06-01 06:08 | External Medical Summary ---
Author Name Unknown Address [address] [place] [phone] Phone Organization K01:[facility] [address] [place] [phone] Laboratory Report Ordering Provider Test Date Status PRINCE TONY VILLASEÑOR [id number] Final Obs # Observation Date Value Abnormality Reference Status Performing Location 0 BUN [id number] 18 6-20 Final [facility] [address] [facility] [address] 1 Creatinine 444431694468 1.0 0.5-1.1 Final [facility] [address] [facility] [facility] [address]
--- OUTSIDE RECORDS SUMMARY | 2023-06-01 06:08 | External Medical Summary ---
Author Name Unknown Address [address] [place] [phone] Phone Organization K01:[facility] [address] [facility] [address] Laboratory Report Ordering Provider Test Date Status PRINCE TONY VILLASEÑOR [id number] Final Obs # Observation Date Value Abnormality Reference Status Performing Location 0 HbA1C 108777067527 9.5 Above high normal 4.0-6.4 Final [facility] [address] [facility] [address]
--- OUTSIDE RECORDS SUMMARY | 2023-06-01 06:08 | External Medical Summary ---
Author Name Unknown Address [address] [place] [phone] Phone Organization K01[facility] [address] [facility] [address] Laboratory Report Ordering Provider Test Date Status PRINCE TONY VILLASEÑOR 03/25/2016 14:13:00 Final Obs # Observation Date Value Abnormality Reference Status Performing Location 0 LDL, (direct) 03/26/2016 01:20 119 0-129 Final [facility] [address] [facility] [address]
--- OUTSIDE RECORDS SUMMARY | 2023-06-01 06:08 | External Medical Summary ---
Author Name Unknown Organization K0G:[facility] Jeramie Ordaz, [address], [place] [address] Laboratory Report Ordering Provider Test Date Status KASI VELEZ MD 01/08/2015 11:36:00-0400 Final Obs # Observation Date Value ABNL Reference Status Pe rforming Location 1 BUN 01/08/2015 14:41-0400 16 6-20 mg/dL Final 2 Creatinine 01/08/2015 14:41-0400 1.0 0.5-1.1 mg/dL Final GFR should be used to assess renal function. Plasma/Serum creatinine may not be able to properly reflect renal function in some cases. If patient is , multiply estimated GFR by 1.159.
--- OUTSIDE RECORDS SUMMARY | 2023-06-01 06:08 | External Medical Summary ---
Author Name Unknown Organization K01:[facility], [address] [address] Laboratory Report Ordering Provider Test Date Status KASI VELEZ MD 01/08/2015 11:36:00-0400 Final Obs # Observation Date Value ABNL Reference Status Pe rforming Location 1 LDL, (direct) 01/08/2015 17:51-0400 92 0-129 mg/dL Final LDL CHOLESTEROL REFERENCE RANGES(mg/dL) <100 OPTIMAL GOAL FOR HIGH RISK PATIENTS 100-129 NEAR OR ABOVE NORMAL 130-159 BORDERLINE HIGH 160-189 HIGH >189 VERY HIGH
--- OUTSIDE RECORDS SUMMARY | 2023-06-01 06:08 | External Medical Summary ---
Author Name Unknown Address [address] [facility] [place] [address] Phone Organization K0G:TRINY Ordaz [address] [facility] [place] [address] Laboratory Report Ordering Provider Test Date Status PRINCE TONY VILLASEÑOR 03/25/2016 14:13:00 Final Obs # Observation Date Value Abnormality Reference Status Performing Location 0 ALT (Alanine aminotransferase) 03/25/2016 15:13 29 10-35 Final [facility] Jeramie Ordaz [address] [facility] [place] [address]
--- OUTSIDE RECORDS SUMMARY | 2023-06-01 06:08 | External Medical Summary ---
Author Name Unknown Address [address] [id number] Phone Organization K01:[facility] [address] [facility] [address] Laboratory Report Ordering Provider Test Date Status PRINCE TONY VILLASEÑOR [id number] Final Obs # Observation Date Value Abnormality Reference Status Performing Location 0 LDL, (direct) [id number] 91 0-129 Final [facility] [address] [facility] [address]
--- OUTSIDE RECORDS SUMMARY | 2023-06-01 06:08 | External Medical Summary ---
Author Name Unknown Address [address] [phone] Phone Organization K01:[facility] [address] [facility] [address] Laboratory Report Ordering Provider Test Date Status PRINCE TONY VILLASEÑOR 06/24/2016 15:24:00 Final Obs # Observation Date Value Abnormality Reference Status Performing Location 0 LDL, (direct) 06/24/2016 22:37 124 0-129 Final [facility] [address] [facility] [address]
--- OUTSIDE RECORDS SUMMARY | 2023-06-01 06:08 | External Medical Summary ---
Author Name Unknown Address [address] [id number] Phone Organization K01:[facility] [address] [facility] [address] Laboratory Report Ordering Provider Test Date Status PRINCE TONY VILLASEÑOR [id number] Final Obs # Observation Date Value Abnormality Reference Status Performing Location 0 BUN [id number] 24 Above high normal 6-20 Final [facility] [address] [facility] [address] 1 Creatinine [id number] 0.9 0.5-1.0 Final [facility] [address] [facility] [address]
--- OUTSIDE RECORDS SUMMARY | 2023-06-01 06:08 | External Medical Summary ---
Author Name Unknown Address [address] [place], [place] [address] Phone Organization K09:[facility] [address] [place] [address] Laboratory Report Ordering Provider Test Date Status PRINCE TONY VILLASEÑOR [id number] Final Obs # Observation Date Value Abnormality Reference Status Performing Location 0 Alanine aminotransferase [Enzymatic activity/volume] in Serum or Plasma by With P-5'-P [id number] Final [facility] [place] [address] [place] [address]
--- OUTSIDE RECORDS SUMMARY | 2023-06-01 06:08 | External Medical Summary ---
Author Name Unknown Address [address] [place] [address] Phone Organization K01:[facility] [address] [place] [facility] [place] [address] Laboratory Report Ordering Provider Test Date Status PRINCE TONY VILLASEÑOR 06/24/2016 15:24:00 Final Obs # Observation Date Value Abnormality Reference Status Performing Location 0 BUN 06/24/2016 22:37 18 6-20 Final [facility] [address] [facility] [place] [address] 1 Creatinine 06/24/2016 22:37 1.1 Above high normal 0.5-1.0 Final
--- OUTSIDE RECORDS SUMMARY | 2023-06-01 06:09 | External Medical Summary ---
Author Name PRINCE JIMENEZ Organization K01[facility], [address] [address] Support Name Relationship Address Phone KASI VELEZ MD Unknown Unavailabl e Laboratory Report Ordering Provider Test Date Status KASI VELEZ MD 02/07/2013 14:17:00-0400 Final Obs # Observation Date Value ABNL Reference Status Pe rforming Location 1 HbA1C 02/08/2013 10:36-0400 8.0 H 3.4-6.4 % Final 2 Glucose, estimated average 02/08/2013 10:36-0400 183 H <126 MG/DL Final
--- OUTSIDE RECORDS SUMMARY | 2023-06-01 06:09 | External Medical Summary ---
Author Name PRINCE JIMENEZ Organization K01:[place] [address] [address] Support Name Relationship Address Phone KASI VELEZ MD PROV Unknown Unavailabl e Laboratory Report Ordering Provider Test Date Status KASI VELEZ MD 02/07/2013 14:17:00-0400 Final Obs # Observation Date Value ABNL Reference Status Pe rforming Location 1 ALT (Alanine aminotransferase) 02/07/2013 21:31-0400 15 10-35 U/L Final
--- OUTSIDE RECORDS SUMMARY | 2023-06-01 06:09 | External Medical Summary ---
Author Name Unknown Organization K01:[facility], [address] [address] Laboratory Report Ordering Provider Test Date Status KASI VELEZ MD 02/22/2014 10:05:00-0400 Final Obs # Observation Date Value ABNL Reference Status Pe rforming Location 1 Albumin, Urine 02/22/2014 19:28-0400 0.40 0-2 mg/dL Final 2 Creatinine, Random Urine 02/22/2014 19:28-0400 71 mg/dL Final 3 Microalbumin / Creatinine Ratio 02/22/2014 19:28-0400 6 <31 mg/g creat Final Normal: 0- 29 mg/g creatinine High: 30-300 mg/g creatinine Very High and Nephrotic: >300 mg/g creatinine
--- OUTSIDE RECORDS SUMMARY | 2023-06-01 06:09 | External Medical Summary ---
Author Name Unknown Organization K01:[facility], [address] [address] Laboratory Report Ordering Provider Test Date Status KASI VELEZ MD 06/13/2014 16:47:00-0400 Final Obs # Observation Date Value ABNL Reference Status Pe rforming Location 1 BUN 06/13/2014 22:02-0400 23 H 6-20 mg/dL Final 2 Creatinine 06/13/2014 22:02-0400 1.0 0.5-1.1 mg/dL Final GFR should be used to assess renal function. Plasma/Serum creatinine may not be able to properly reflect renal function in some cases. If patient is , multiply estimated GFR by 1.159.
--- OUTSIDE RECORDS SUMMARY | 2023-06-01 06:09 | External Medical Summary ---
Author Name Unknown Organization K01:[facility], [address] [address] Laboratory Report Ordering Provider Test Date Status KASI VELEZ MD 06/08/2013 09:06:00-0400 Final Obs # Observation Date Value ABNL Reference Status Pe rforming Location 1 ALT (Alanine aminotransferase) 06/08/2013 14:08-0400 16 10-35 U/L Final
--- OUTSIDE RECORDS SUMMARY | 2023-06-01 06:09 | External Medical Summary ---
Author Name Unknown Organization K01:[facility], [address] [address] Laboratory Report Ordering Provider Test Date Status KASI VELEZ MD 11/06/2013 12:13:00-0500 Final Obs # Observation Date Value ABNL Reference Status Pe rforming Location 1 HbA1C 11/06/2013 22:40-0500 7.1 H 3.4-6.4 % Final 2 Glucose, estimated average 11/06/2013 22:40-0500 157 H <126 MG/DL Final
--- OUTSIDE RECORDS SUMMARY | 2023-06-01 06:09 | External Medical Summary ---
Author Name Unknown Organization K01:[facility], [address] [address] Laboratory Report Ordering Provider Test Date Status KASI VELEZ MD 06/13/2014 16:47:00-0400 Final Obs # Observation Date Value ABNL Reference Status Pe rforming Location 1 LDL, (direct) 06/13/2014 22:02-0400 113 0-129 mg/dL Final LDL CHOLESTEROL REFERENCE RANGES(mg/dL) <100 OPTIMAL GOAL FOR HIGH RISK PATIENTS 100-129 NEAR OR ABOVE NORMAL 130-159 BORDERLINE HIGH 160-189 HIGH >189 VERY HIGH
--- OUTSIDE RECORDS SUMMARY | 2023-06-01 06:09 | External Medical Summary ---
Author Name PRINCE JIMENEZ Organization K01:[facility], [address] [address] Support Name Relationship Address Phone KASI VELEZ MD Unknown Unavailabl e Laboratory Report Ordering Provider Test Date Status KASI VELEZ MD 11/16/2012 08:46:00-0500 Final Obs # Observation Date Value ABNL Reference Status Pe rforming Location 1 HbA1C 11/16/2012 13:41-0500 6.8 H 3.4-6.4 % Final 2 Glucose, estimated average 11/16/2012 13:41-0500 148 H <126 MG/DL Final
--- OUTSIDE RECORDS SUMMARY | 2023-06-01 06:09 | External Medical Summary ---
Author Name Unknown Organization K01:[facility], [address] [address] Laboratory Report Ordering Provider Test Date Status KASI VELEZ MD 02/22/2014 10:05:00-0400 Final Obs # Observation Date Value ABNL Reference Status Pe rforming Location 1 BUN 02/22/2014 17:51-0400 22 H 6-20 mg/dL Final 2 Creatinine 02/22/2014 17:51-0400 1.0 0.5-1.1 mg/dL Final GFR should be used to assess renal function. Plasma/Serum creatinine may not be able to properly reflect renal function in some cases. If patient is , multiply estimated GFR by 1.159.
--- OUTSIDE RECORDS SUMMARY | 2023-06-01 06:09 | External Medical Summary ---
Author Name PRINCE JIMENEZ Organization K01:[place] [address] [address] Support Name Relationship Address Phone KASI VELEZ MD Unknown Unavailabl e Laboratory Report Ordering Provider Test Date Status KASI VELEZ MD 02/07/2013 14:17:00-0400 Final Obs # Observation Date Value ABNL Reference Status Pe rforming Location 1 TSH 02/07/2013 21:21-0400 2.64 0.27-4.2 uIU/mL Final
--- OUTSIDE RECORDS SUMMARY | 2023-06-01 06:09 | External Medical Summary ---
Author Name PRINCE JIMENEZ Organization K01:[facility], [address] [address] Support Name Relationship Address Phone KASI VELEZ MD PROV Unknown Unavailabl e Laboratory Report Ordering Provider Test Date Status KASI VELEZ MD 02/07/2013 15:05:00-0400 Final Obs # Observation Date Value ABNL Reference Status Pe rforming Location 1 Albumin, Urine 02/08/2013 07:30-0400 2.80 H 0-2 mg/dL Final 2 Creatinine, Random Urine 02/08/2013 07:30-0400 99 mg/dL Final 3 Microalbumin / Creatinine Ratio 02/08/2013 07:30-0400 28 <31 mg/g creat Final Normal: 0- 29 mg/g creatinine High: 30-300 mg/g creatinine Very High and Nephrotic: >300 mg/g creatinine
--- OUTSIDE RECORDS SUMMARY | 2023-06-01 06:09 | External Medical Summary ---
Author Name PRINCE JIMENEZ Organization K01:[facility], [address] [address] Support Name Relationship Address Phone KASI VELEZ MD PROV Unknown Unavailabl e Laboratory Report Ordering Provider Test Date Status KASI VELEZ MD 07/07/2012 09:56:00-0400 Final Obs # Observation Date Value ABNL Reference Status Pe rforming Location 1 Albumin, Urine 07/07/2012 22:28-0400 <0.30 0-2 mg/dL Final 2 Creatinine, Random Urine 07/07/2012 22:28-0400 71 mg/dL Final 3 Microalbumin / Creatinine Ratio 07/07/2012 22:28-0400 <4 <31 mg/g creat Final Normal: 0- 29 mg/g creatinine High: 30-300 mg/g creatinine Very High and Nephrotic: >300 mg/g creatinine
--- OUTSIDE RECORDS SUMMARY | 2023-06-01 06:09 | External Medical Summary ---
Author Name Unknown Organization K01:[facility], [address] [address] Laboratory Report Ordering Provider Test Date Status KASI VELEZ MD 06/08/2013 09:06:00-0400 Final Obs # Observation Date Value ABNL Reference Status Pe rforming Location 1 HbA1C 06/08/2013 15:-0400 8.1 H 3.4-6.4 % Final 2 Glucose, estimated average 06/08/2013 15:21-0400 186 H <126 MG/DL Final
--- OUTSIDE RECORDS SUMMARY | 2023-06-01 06:09 | External Medical Summary ---
Author Name PRINCE JIMENEZ Organization K01:[facility], [address] [address] Support Name Relationship Address Phone KASI VELEZ MD Unknown Unavailabl e Laboratory Report Ordering Provider Test Date Status KASI VELEZ MD 11/16/2012 08:46:00-0500 Final Obs # Observation Date Value ABNL Reference Status Pe rforming Location 1 LDL, (direct) 11/16/2012 13:15-0500 123 0-129 mg/dL Final LDL CHOLESTEROL REFERENCE RANGES(mg/dL) <100 OPTIMAL GOAL FOR HIGH RISK PATIENTS 100-129 NEAR OR ABOVE NORMAL 130-159 BORDERLINE HIGH 160-189 HIGH >189 VERY HIGH
--- OUTSIDE RECORDS SUMMARY | 2023-06-01 06:09 | External Medical Summary ---
Author Name Unknown Organization K01:[facility], [address] [address] Laboratory Report Ordering Provider Test Date Status KASI VELEZ MD 06/13/2014 16:47:00-0400 Final Obs # Observation Date Value ABNL Reference Status Pe rforming Location 1 ALT (Alanine aminotransferase) 06/13/2014 22:02-0400 18 10-35 U/L Final
--- OUTSIDE RECORDS SUMMARY | 2023-06-01 06:09 | External Medical Summary ---
Author Name PRINCE JIMENEZ Organization K01:[facility], [address] [address] Support Name Relationship Address Phone KASI VELEZ MD Unknown Unavailabl e Laboratory Report Ordering Provider Test Date Status KASI VELEZ MD 02/07/2013 14:17:00-0400 Final Obs # Observation Date Value ABNL Reference Status Pe rforming Location 1 LDL, (direct) 02/07/2013 21:31-0400 110 0-129 mg/dL Final LDL CHOLESTEROL REFERENCE RANGES(mg/dL) <100 OPTIMAL GOAL FOR HIGH RISK PATIENTS 100-129 NEAR OR ABOVE NORMAL 130-159 BORDERLINE HIGH 160-189 HIGH >189 VERY HIGH
--- OUTSIDE RECORDS SUMMARY | 2023-06-01 06:09 | External Medical Summary ---
Author Name Unknown Organization K01:[facility], [address] [address] Laboratory Report Ordering Provider Test Date Status KASI VELEZ MD 06/08/2013 09:06:00-0400 Final Obs # Observation Date Value ABNL Reference Status Pe rforming Location 1 BUN 06/08/2013 14:08-0400 26 H 6-20 mg/dL Final 2 Creatinine 06/08/2013 14:08-0400 1.1 0.5-1.1 mg/dL Final GFR should be used to assess renal function. Plasma/Serum creatinine may not be able to properly reflect renal function in some cases.
--- OUTSIDE RECORDS SUMMARY | 2023-06-01 06:09 | External Medical Summary ---
Author Name Unknown Organization K0G:[facility] Jeramie Ordaz, [address], [place] [address] Laboratory Report Ordering Provider Test Date Status KASI VELEZ MD 10/10/2014 14:32:00-0500 Final Obs # Observation Date Value ABNL Reference Status Pe rforming Location 1 BUN 10/10/2014 16:23-0500 23 H 6-20 mg/dL Final 2 Creatinine 10/10/2014 16:23-0500 1.0 0.5-1.1 mg/dL Final GFR should be used to assess renal function. Plasma/Serum creatinine may not be able to properly reflect renal function in some cases. If patient is , multiply estimated GFR by 1.159.
--- OUTSIDE RECORDS SUMMARY | 2023-06-01 06:09 | External Medical Summary ---
Author Name Unknown Organization K0G:[facility], [address] [place] [address] [place] [address] Laboratory Report Ordering Provider Test Date Status KASI VELEZ MD 10/10/2014 14:32:00-0500 Final Obs # Observation Date Value ABNL Reference Status Pe rforming Location 1 ALT (Alanine aminotransferase) 10/10/2014 16:23-0500 7 L 10-35 U/L Final
--- OUTSIDE RECORDS SUMMARY | 2023-06-01 06:09 | External Medical Summary ---
Author Name Unknown Organization K01:[facility], [address] [address] Laboratory Report Ordering Provider Test Date Status KASI VELEZ MD 02/22/2014 10:05:00-0400 Final Obs # Observation Date Value ABNL Reference Status Pe rforming Location 1 HbA1C 02/22/2014 20:04-0400 7.8 H 3.4-6.4 % Final 2 Glucose, estimated average 02/22/2014 20:04-0400 177 H <126 MG/DL Final
--- OUTSIDE RECORDS SUMMARY | 2023-06-01 06:09 | External Medical Summary ---
Author Name PRINCE JIMENEZ Organization K01:[place] [address] [address] Support Name Relationship Address Phone KASI VELEZ MD [facility] Unknown Unavailabl e Laboratory Report Ordering Provider Test Date Status KASI VELEZ MD 11/16/2012 08:46:00-0500 Final Obs # Observation Date Value ABNL Reference Status Pe rforming Location 1 ALT (Alanine aminotransferase) 11/16/2012 13:15-0500 23 10-35 U/L Final
--- OUTSIDE RECORDS SUMMARY | 2023-06-01 06:09 | External Medical Summary ---
Author Name Unknown Organization [id number] Laboratory Report Ordering Provider Test Date Status KASI VELEZ MD 02/22/2014 10:05:000400 Final Obs # Observation Date Value ABNL Reference Status Pe rforming Location 1 hours fasting 02/22/2014 10:070400 12 hours Final 2 Triglyceride 02/22/2014 17:51-0400 167 <200 mg/dL Final TRIGLYCERIDE REFERENCE RANGES (mg/dL) <150 NORMAL 150-199 BORDERLINE HIGH 200-499 HIGH >499 VERY HIGH TOTAL CHOLESTEROL REFERENCE RANGES(mg/dL) <200 DESIRABLE 200-239 BORDERLINE HIGH >239 HIGH HDL CHOLESTEROL REFERENCE RANGES(mg/dL) <40 LOW(UNDESIRABLE) >59 HIGH(DESIRABLE) LDL CHOLESTEROL REFERENCE RANGES(mg/dL) <100 OPTIMAL GOAL FOR HIGH RISK PATIENTS 100-129 NEAR OR ABOVE NORMAL 130-159 BORDERLINE HIGH 160-189 HIGH >189 VERY HIGH
--- OUTSIDE RECORDS SUMMARY | 2023-06-01 06:09 | External Medical Summary ---
Author Name PRINCE JIMENEZ Organization K01[facility], [address] [address] Support Name Relationship Address Phone KASI VELEZ MD PROV Unknown Unavailabl e Laboratory Report Ordering Provider Test Date Status KASI VELEZ MD 02/07/2013 14:17:00-0400 Final Obs # Observation Date Value ABNL Reference Status Pe rforming Location 1 BUN 02/07/2013 21:31-0400 22 H 6-20 mg/dL Final 2 Creatinine 02/07/2013 21:31-0400 1.0 0.5-1.1 mg/dL Final GFR should be used to assess renal function. Plasma/Serum creatinine may not be able to properly reflect renal function in some cases.
--- OUTSIDE RECORDS SUMMARY | 2023-06-01 06:09 | External Medical Summary ---
Author Name PRINCE JIMENEZ Organization K01:[facility], [address] [address] Support Name Relationship Address Phone KASI VELEZ MD [facility] Unknown Unavailabl e Laboratory Report Ordering Provider Test Date Status KASI VELEZ MD 11/16/2012 08:46:00-0500 Final Obs # Observation Date Value ABNL Reference Status Pe rforming Location 1 BUN 11/16/2012 13:15-0500 18 6-20 mg/dL Final 2 Creatinine 11/16/2012 13:15-0500 0.9 0.5-1.1 mg/dL Final GFR should be used to assess renal function. Plasma/Serum creatinine may not be able to properly reflect renal function in some cases.
--- OUTSIDE RECORDS SUMMARY | 2023-06-01 06:09 | External Medical Summary ---
Author Name PRINCE JIMENEZ Organization K01:[place] [address] [address] Support Name Relationship Address Phone KASI VELEZ MD Unknown Unavailabl e Laboratory Report Ordering Provider Test Date Status KASI VELEZ MD 11/16/2012 08:46:00-0500 Final Obs # Observation Date Value ABNL Reference Status Pe rforming Location 1 TSH 11/16/2012 13:21-0500 4.54 H 0.27-4.2 uIU/mL Final
--- OUTSIDE RECORDS SUMMARY | 2023-06-01 06:09 | External Medical Summary ---
Author Name Unknown Organization K01:[facility], [address] [address] Laboratory Report Ordering Provider Test Date Status KASI VELEZ MD 06/13/2014 16:47:00-0400 Final Obs # Observation Date Value ABNL Reference Status Pe rforming Location 1 HbA1C 06/13/2014 22:46-0400 8.0 H 4.0-6.4 % Final 2 Glucose, estimated average 06/13/2014 22:46-0400 183 H <126 MG/DL Final
--- OUTSIDE RECORDS SUMMARY | 2023-06-01 06:09 | External Medical Summary ---
Author Name Unknown Organization K0G:[facility] Jeramie Ordaz, [address] [place] [address] Laboratory Report Ordering Provider Test Date Status KASI VELEZ MD 06/08/2013 09:06:00-0400 Final Obs # Observation Date Value ABNL Reference Status Pe rforming Location 1 hours fasting 06/08/2013 09:08-0400 12 hours Final 2 Triglyceride 06/08/2013 14:08-0400 169 <200 mg/dL Final TRIGLYCERIDE REFERENCE RANGES (mg/dL) [...]
--- OUTSIDE RECORDS SUMMARY | 2023-06-01 06:09 | External Medical Summary ---
Author Name Unknown Organization K0G:[facility] Jeramie Ordaz, [address] [address] Laboratory Report Ordering Provider Test Date Status KASI VELEZ MD 10/10/2014 14:32:00-0500 Final Obs # Observation Date Value ABNL Reference Status Pe rforming Location 1 hours fasting 10/10/2014 14:34-0500 12 hours Final 2 Triglyceride 10/10/2014 22:39-0500 195 <200 mg/dL Final TRIGLYCERIDE REFERENCE RANGES (mg/dL) [...]
--- OUTSIDE RECORDS SUMMARY | 2023-06-01 06:09 | External Medical Summary ---
Author Name Unknown Organization K01:[facility], [address] [address] Laboratory Report Ordering Provider Test Date Status KASI VELEZ MD 02/22/2014 10:05:00-0400 Final Obs # Observation Date Value ABNL Reference Status Pe rforming Location 1 TSH 02/22/2014 17:58-0400 1.41 0.27-4.2 uIU/mL Final
--- OUTSIDE RECORDS SUMMARY | 2023-06-01 06:09 | External Medical Summary ---
Author Name Unknown Organization K01:[facility], [address] [address] Laboratory Report Ordering Provider Test Date Status KASI VELEZ MD 02/22/2014 10:05:00-0400 Final Obs # Observation Date Value ABNL Reference Status Pe rforming Location 1 ALT (Alanine aminotransferase) 02/22/2014 17:51-0400 18 10-35 U/L Final
--- OUTSIDE RECORDS SUMMARY | 2023-06-01 06:10 | External Medical Summary ---
Author Name KASI VELEZ MD Organization K01:[facility], [address] [address] Support Name Relationship Address Phone KASI VELEZ MD PROV Unknown Unavailab le Laboratory Report Ordering Provider Test Date Status KASI VELEZ MD 08/13/2011 11:47-0500 Final Obs # Observation Date Value ABNL Reference Status Pe rforming Location 1 TSH 08/13/2011 19:18-0500 4.53 H 0.27-4.2 uIU/mL Final
--- OUTSIDE RECORDS SUMMARY | 2023-06-01 06:10 | External Medical Summary ---
Author Name Unknown Organization K01:[facility], [address] [address] Support Name Relationship Address Phone MILA DÍAZ MD PROV Unknown Unavailab le Laboratory Report Ordering Provider Test Date Status MILA DÍAZ MD 06/17/2011 07:54-0400 Final Obs # Observation Date Value ABNL Reference Status Pe rforming Location 1 Calcium, ionized 06/17/2011 08:040 1.24 1.13-1.32 mmol/L Final
--- OUTSIDE RECORDS SUMMARY | 2023-06-01 06:10 | External Medical Summary ---
Author Name PRINCE JIMENEZ Organization K09:[facility] [address] , [place] [address] Support Name Relationship Address Phone PRINCE JIMENEZ, KASI GARZA Unknown Unavailabl e Laboratory Report Ordering Provider Test Date Status KASI VELEZ MD 07/07/2012 08:58:00-0400 Final Obs # Observation Date Value ABNL Reference Status Pe rforming Location 1 ALT (Alanine aminotransferase) 07/07/2012 10:36-0400 15 10-35 U/L Final
--- OUTSIDE RECORDS SUMMARY | 2023-06-01 06:10 | External Medical Summary ---
Author Name Val GUERRA MD Organization K01:[facility] [address] [address] Support Name Relationship Address Phone Val GUERRA MD PROV Unknown Unavailab le Laboratory Report Ordering Provider Test Date Status Val GUERRA MD 08/13/2011 11:50-0500 Final Obs # Observation Date Value ABNL Reference Status Pe rforming Location 1 FERRITIN 08/13/2011 19:17-0500 26.9 13-150 ng/mL Final
--- OUTSIDE RECORDS SUMMARY | 2023-06-01 06:10 | External Medical Summary ---
Author Name PRINCE JIMENEZ Organization K01:[facility], [address] [address] Support Name Relationship Address Phone KASI VELEZ MD [facility] Unknown Unavailabl e Laboratory Report Ordering Provider Test Date Status KASI VELEZ MD 12/23/2011 12:51:00-0400 Final Obs # Observation Date Value ABNL Reference Status Pe rforming Location 1 BUN 12/24/2011 00:45-0400 17 6-20 mg/dL Final 2 Creatinine 12/24/2011 00:45-0400 0.9 0.5-1.1 mg/dL Final GFR should be used to assess renal function. Plasma/Serum creatinine may not be able to properly reflect renal function in some cases.
--- OUTSIDE RECORDS SUMMARY | 2023-06-01 06:10 | External Medical Summary ---
Author Name MATT HOLDER DO Organization K01:[facility], [address] [address] Support Name Relationship Address Phone DANNY HOLDER DO PROV Unknown Unav ailable Laboratory Report Ordering Provider Test Date Status DANNY HOLDER DO 06/17/2011 07:37-0400 Fi nal Obs # Observation Date Value ABNL Reference Status Pe rforming Location 1 Glucose, meter 06/18/2011 12:0 91 70-120 mg/dl Final
--- OUTSIDE RECORDS SUMMARY | 2023-06-01 06:10 | External Medical Summary ---
Author Name SYDNEY JIMENEZ Organization K01:[facility], [address] [address] Support Name Relationship Address Phone INEZ GRIMES MD [facility] Unknown Unavailabl e Laboratory Report Ordering Provider Test Date Status INEZ GRIMES MD 01/04/2012 07:43:00-0400 Final Obs # Observation Date Value ABNL Reference Status Pe rforming Location 1 specimen 01/04/2012 12:27-0400 PRESERVED STOOL Final 2 EIA 01/05/2012 20:00-0400 E.COLI SHIGA TOXIN 1 AND E.COLI SHIGA TOXIN 2 NOT DETECTED. Final 3 result 01/05/2012 09:17-0400 NO SALMONELLA, SHIGELLA OR CAMPYLOBACTER ISOLATED Final 4 report status 01/08/2012 10:34-0400 01/08/2012 FINAL Final
--- OUTSIDE RECORDS SUMMARY | 2023-06-01 06:10 | External Medical Summary ---
Author Name SYDNEY JIMENEZ Organization K01:[facility], [address] [address] Support Name Relationship Address Phone INEZ GRIMES MD [facility] Unknown Unavailabl e Laboratory Report Ordering Provider Test Date Status INEZ GRIMES MD 01/04/2012 07:43:00-0400 Final Obs # Observation Date Value ABNL Reference Status Pe rforming Location 1 specimen 01/04/2012 12:26-0400 STOOL Final 2 result 01/04/2012 23:29-0400 Negative. No C difficile toxin B gene DNA detected by PCR. Final 3 report status 01/04/2012 23:29-0400 01/04/2012 FINAL Final
--- OUTSIDE RECORDS SUMMARY | 2023-06-01 06:10 | External Medical Summary ---
Author Name Val GUERRA MD Organization K01:[facility], [address] [address] Support Name Relationship Address Phone Val GUERRA MD PROV Unknown Unavailab le Laboratory Report Ordering Provider Test Date Status Val GUERRA MD 08/13/2011 11:50-0500 Final Obs # Observation Date Value ABNL Reference Status Pe rforming Location 1 IRON 08/13/2011 19:19-0500 78 30-160 ug/dL Final
--- OUTSIDE RECORDS SUMMARY | 2023-06-01 06:10 | External Medical Summary ---
Author Name MATT HOLDER DO Organization K01:[facility], [address] [address] Support Name Relationship Address Phone DANNY HOLDER DO PROV Unknown Unav ailable Laboratory Report Ordering Provider Test Date Status DANNY HOLDER DO 06/17/2011 11:23-0400 Fi nal Obs # Observation Date Value ABNL Reference Status Pe rforming Location 1 Glucose, meter 06/18/2011 12:-0400 128 H 70-120 mg/dl Final
--- OUTSIDE RECORDS SUMMARY | 2023-06-01 06:10 | External Medical Summary ---
Author Name KASI VELEZ MD Organization K0G:[facility], [address] [place] [address] Support Name Relationship Address Phone KASI VELEZ MD PROV Unknown Unavailab le Laboratory Report Ordering Provider Test Date Status KASI VELEZ MD 08/13/2011 11:47-0500 Final Obs # Observation Date Value ABNL Reference Status Pe rforming Location 1 HOURS FASTING 08/13/20 11:49-05 00 12 hours Final 2 TRIGLYCERIDES 08/13/20 11 19:03-05 00 196 <200 mg/dL Final 3 TRIGLYCERIDES 08/13/20 11 19:03-05 00 Final 4 TRIGLYCERIDES 08/13/20 11 19:03-05 00 TRIGLYCERIDE REFERENCE RANGES (mg/dL) Final 5 TRIGLYCERIDES 08/13/20 11 19:03-05 00 Final 6 TRIGLYCERIDES 08/13/20 11 19:03-05 00 <150 NORMAL Final 7 TRIGLYCERIDES 08/13/20 11 19:03-05 00 150-199 BORDERLINE HIGH Final 8 TRIGLYCERIDES 08/13/20 11 19:03-05 00 200-499 HIGH Final 9 TRIGLYCERIDES 08/13/20 11 19:03-05 00 >499 VERY HIGH Final 10 Cholesterol 08/13/20 11 19:03-05 00 205 H <200 mg/dL Final 11 HDL 08/13/20 11 19:03-05 00 51 40-59 mg/dL Final 12 CHOL/HDL RATIO 08/13/20 11 19:03-05 00 4.0 Final 13 LDL (CALCULATED) 08/13/20 11 19:03-05 00 115 0-129 mg/dL Final 14 LDL (CALCULATED) 08/13/20 11 19:03-05 00 Final 15 LDL (CALCULATED) 08/13/20 11 19:03-05 00 LIPID PANEL REFERENCE RANGES (mg/dL) Final 16 LDL (CALCULATED) 08/13/20 11 19:03-05 00 Final 17 LDL (CALCULATED) 08/13/20 11 19:03-05 00 LDL CHOLESTEROL Final 18 LDL (CALCULATED) 08/13/20 19:03-05 00 <100 OPTIMAL GOAL FOR HIGH RISK PATIENTS Final 19 LDL (CALCULATED) 08/13/20 11 19:03-05 00 100-129 NEAR OR ABOVE NORMAL Final 20 LDL (CALCULATED) 08/13/20 19:03-05 00 130-159 BORDERLINE HIGH Final 21 LDL (CALCULATED) 08/13/20 19:03-05 00 160-189 HIGH Final 22 LDL (CALCULATED) 08/13/20 11 19:03-05 00 >189 VERY HIGH Final 23 LDL (CALCULATED) 08/13/20 19:03-05 00 Final 24 LDL (CALCULATED) 08/13/20 19:03-05 00 TOTAL CHOLESTEROL Final 25 LDL (CALCULATED) 08/13/20 11 19:03-05 00 <200 DESIRABLE Final 26 LDL (CALCULATED) 08/13/20 19:03-05 00 200-239 BORDERLINE HIGH Final 27 LDL (CALCULATED) 08/13/20 19:03-05 00 >239 HIGH Final 28 LDL (CALCULATED) 08/13/20 19:03-05 00 Final 29 LDL (CALCULATED) 08/13/20 19:03-05 00 HDL [id number] Final 30 LDL (CALCULATED) 08/13/20 19:03-05 00 <40 LOW Final 31 LDL (CALCULATED) 08/13/20 19:03-05 00 40-59 NORMAL Final 32 LDL (CALCULATED) 08/13/20 19:03-05 00 >59 HIGH Final
--- OUTSIDE RECORDS SUMMARY | 2023-06-01 06:10 | External Medical Summary ---
Author Name KASI VELEZ MD Organization K09:[facility], [address], [facility] [address] Support Name Relationship Address Phone KASI VELEZ MD PROV Unknown Unavailab le Laboratory Report Ordering Provider Test Date Status KASI VELEZ MD 08/13/2011 11:47-0500 Final Obs # Observation Date Value ABNL Reference Status Pe rforming Location 1 BUN 1 15:07-050 0 18 6-20 mg/dL Final 2 Creatinine 1 15:07-050 0 0.9 0.5-1.1 mg/dL Final 3 Creatinine 1 15:07-050 0 GFR should be used to assess renal function. Plasma/Serum creatinine may not be able to properly reflect renal function in some cases. Final 4 SODIUM 1 15:07-050 0 139 135-146 mmol/L Final 5 POTASSIUM 1 15:07-050 0 4.6 3.5-5.1 mmol/L Final 6 Cl 1 15:07-050 0 102 98-111 mmol/L Final 7 CO2 1 15:07-050 0 25 22-32 mmol/L Final 8 GLUCOSE 1 15:07-050 0 124 H 70-120 mg/dL Final 9 Anion gap 1 15:07-050 0 12 7-15 mmol/L Final 10 Calcium 1 15:07-050 0 9.4 8.3-10.5 mg/dL Final 11 GFR ESTIMATED 1 15:07-050 0 >60.0 >60 mL/min Final
--- OUTSIDE RECORDS SUMMARY | 2023-06-01 06:10 | External Medical Summary ---
Author Name PRINCE JIMENEZ Organization K0G:[facility], [address] [place] [address] Support Name Relationship Address Phone PRINCE JIMENEZ, KASI GARZA Unknown Unavailabl e Laboratory Report Ordering Provider Test Date Status KASI VELEZ MD 07/07/2012 08:58:00-0400 Final Obs # Observation Date Value ABNL Reference Status Pe rforming Location 1 hours fasting 07/07/2012 09:00-0400 12 hours Final 2 Triglyceride 07/07/2012 14:04-0400 113 <200 mg/dL Final TRIGLYCERIDE REFERENCE RANGES (mg/dL) [...]
--- OUTSIDE RECORDS SUMMARY | 2023-06-01 06:10 | External Medical Summary ---
Author Name KASI VELEZ MD Organization K01:[facility], [address] [address] Support Name Relationship Address Phone KASI VELEZ MD PROV Unknown Unavailab le Laboratory Report Ordering Provider Test Date Status KASI VELEZ MD 08/13/2011 11:47-0500 Final Obs # Observation Date Value ABNL Reference Status Pe rforming Location 1 HEMOGLOBIN, A1C 08/13/2011 20:10-0500 6.5 H 3.4-6.4 % Final 2 EST AVG GLUCOSE 08/13/2011 20:10-0500 140 H <126 MG/DL Final
--- OUTSIDE RECORDS SUMMARY | 2023-06-01 06:10 | External Medical Summary ---
Author Name PRINCE JIMENEZ Organization K0G:[facility], [address] [place] [address] Support Name Relationship Address Phone PRINCE JIMENEZ, AKSI GARZA Unknown Unavailabl e Laboratory Report Ordering Provider Test Date Status KASI VELEZ MD 03/24/2012 09:36:00-0400 Final Obs # Observation Date Value ABNL Reference Status Pe rforming Location 1 hours fasting 03/24/2012 09:38-0400 12 hours Final 2 Triglyceride 03/24/2012 19:02-0400 142 <200 mg/dL Final TRIGLYCERIDE REFERENCE RANGES (mg/dL) <150 NORMAL 150-199 BORDERLINE HIGH 200-499 HIGH >499 VERY HIGH TOTAL CHOLESTEROL REFERENCE RANGES(mg/dL) <200 DESIRABLE 200-239 BORDERLINE HIGH >239 HIGH HDL CHOLESTEROL REFERENCE RANGES(mg/dL) <40 LOW >59 HIGH LDL CHOLESTEROL REFERENCE RANGES(mg/dL) <100 OPTIMAL GOAL FOR HIGH RISK PATIENTS 100-129 NEAR OR ABOVE NORMAL 130-159 BORDERLINE HIGH 160-189 HIGH >189 VERY HIGH
--- OUTSIDE RECORDS SUMMARY | 2023-06-01 06:10 | External Medical Summary ---
Author Name PRINCE JIMENEZ Organization K01:[facility], [address] [address] Support Name Relationship Address Phone KASI VELEZ MD Unknown Unavailabl e Laboratory Report Ordering Provider Test Date Status KASI VELEZ MD 03/24/2012 09:36:00-0400 Final Obs # Observation Date Value ABNL Reference Status Pe rforming Location 1 HbA1C 03/24/2012 21:25-0400 8.5 H 3.4-6.4 % Final 2 Glucose, estimated average 03/24/2012 21:25-0400 197 H <126 MG/DL Final
--- OUTSIDE RECORDS SUMMARY | 2023-06-01 06:10 | External Medical Summary ---
Author Name PRINCE JIMENEZ Organization K09:[facility] [address] [place] [address] Support Name Relationship Address Phone KASI VELEZ MD PROV Unknown Unavailabl e Laboratory Report Ordering Provider Test Date Status KASI VELEZ MD 07/07/2012 08:58:00-0400 Final Obs # Observation Date Value ABNL Reference Status Pe rforming Location 1 BUN 07/07/2012 10:36-0400 16 6-20 mg/dL Final 2 Creatinine 07/07/2012 10:36-0400 0.9 0.5-1.1 mg/dL Final GFR should be used to assess renal function. Plasma/Serum creatinine may not be able to properly reflect renal function in some cases.
--- OUTSIDE RECORDS SUMMARY | 2023-06-01 06:10 | External Medical Summary ---
Author Name PRINCE JIMENEZ Organization K01:[facility], [address] [address] Support Name Relationship Address Phone KASI VELEZ MD Unknown Unavailabl e Laboratory Report Ordering Provider Test Date Status KASI VELEZ MD 07/07/2012 08:58:00-0400 Final Obs # Observation Date Value ABNL Reference Status Pe rforming Location 1 HbA1C 07/07/2012 14:03-0400 7.0 H 3.4-6.4 % Final 2 Glucose, estimated average 07/07/2012 14:03-0400 154 H <126 MG/DL Final
--- OUTSIDE RECORDS SUMMARY | 2023-06-01 06:10 | External Medical Summary ---
Author Name KASI VELEZ MD Organization K09:[address] , [facility] [address] Support Name Relationship Address Phone KASI VELEZ MD PROV Unknown Unavailab le Laboratory Report Ordering Provider Test Date Status KASI VELEZ MD 08/13/2011 11:47-0500 Final Obs # Observation Date Value ABNL Reference Status Pe rforming Location 1 ALT (Alanine aminotransferase) 08/13/2011 15:07-0500 19 10-35 U/L Final
--- OUTSIDE RECORDS SUMMARY | 2023-06-01 06:10 | External Medical Summary ---
Author Name Val GUERRA MD Organization K01:[facility], [address] [address] Support Name Relationship Address Phone Val GUERRA MD PROV Unknown Unavailab le Laboratory Report Ordering Provider Test Date Status Val GUERRA MD 08/13/2011 11:50-0500 Final Obs # Observation Date Value ABNL Reference Status Pe rforming Location 1 WBC 08/13/2011 18:07-0500 9.66 4.00-10.80 K/uL Final 2 RBC 08/13/2011 18:07-0500 5.00 3.85-5.15 M/uL Final 3 HGB 08/13/2011 18:07-0500 13.5 12.0-14.5 g/dL Final 4 HCT 08/13/2011 18:07-0500 44.2 36.0-44.5 % Final 5 MCV 08/13/2011 18:07-0500 88.4 81.5-97.5 fL Final 6 MCH 08/13/2011 18:07-0500 27.0 27.0-34.0 pg Final 7 MCHC 08/13/2011 18:07-0500 30.5 L 32.0-36.0 g/dL Final 8 RDW 08/13/2011 18:07-0500 16.3 H 11.5-15.5 % Final 9 PLATELET COUNT 08/13/2011 18:07-0500 287 140-400 K/uL Final 10 MPV 08/13/2011 18:07-0500 10.3 6.6-11.1 fL Final 11 SEGS 08/13/2011 18:07-0500 72 40-75 % Final 12 LYMPHS 08/13/2011 18:07-0500 17 L 18-42 % Final 13 MONOS 08/13/2011 18:07-0500 6 1-11 % Final 14 EOS 08/13/2011 18:07-0500 4 0-6 % Final 15 Basos 08/13/2011 18:07-0500 1 0-2 % Final 16 ABS. SEGS 08/13/2011 18:07-0500 6.97 1.8-7.7 K/uL Final 17 ABS. LYMPHS 08/13/2011 18:07-0500 1.65 1.0-4.8 K/uL Final 18 ABS. MONOS 08/13/2011 18:07-0500 0.54 0.0-1.1 K/uL Final 19 ABS. EOS 08/13/2011 18:07-0500 0.39 0.0-0.7 K/uL Final 20 Basos, Abs 08/13/2011 18:07-0500 0.07 0.0-0.2 K/uL Final
--- OUTSIDE RECORDS SUMMARY | 2023-06-01 06:10 | External Medical Summary ---
Author Name PRINCE JIMENEZ Organization K01:[facility], [address] [address] Support Name Relationship Address Phone KASI VELEZ MD Unknown Unavailabl e Laboratory Report Ordering Provider Test Date Status KASI VELEZ MD 12/23/2011 12:51:00-0400 Final Obs # Observation Date Value ABNL Reference Status Pe rforming Location 1 HbA1C 12/24/2011 01:00-0400 7.4 H 3.4-6.4 % Final 2 Glucose, estimated average 12/24/2011 01:00-0400 166 H <126 MG/DL Final
--- OUTSIDE RECORDS SUMMARY | 2023-06-01 06:10 | External Medical Summary ---
Author Name PRINCE JIMENEZ Organization K01:[place] [address] [address] Support Name Relationship Address Phone KASI VELEZ MD Unknown Unavailabl e Laboratory Report Ordering Provider Test Date Status KASI VELEZ MD 03/24/2012 09:36:00-0400 Final Obs # Observation Date Value ABNL Reference Status Pe rforming Location 1 TSH 03/24/2012 20:26-0400 8.50 H 0.27-4.2 uIU/mL Final
--- OUTSIDE RECORDS SUMMARY | 2023-06-01 06:10 | External Medical Summary ---
Author Name Val GUERRA MD Organization K01:[facility], [address] [address] Support Name Relationship Address Phone Val GUERRA MD PROV Unknown Unavailab le Laboratory Report Ordering Provider Test Date Status Val GUERRA MD 08/13/2011 11:50-0500 Final Obs # Observation Date Value ABNL Reference Status Pe rforming Location 1 IRON BINDING CAP 08/13/2011 19:19-0500 365 228-428 ug/dL Final
--- OUTSIDE RECORDS SUMMARY | 2023-06-01 06:10 | External Medical Summary ---
Author Name PRINCE JIMENEZ Organization K09:[facility] [address] , [place] [address] Support Name Relationship Address Phone PRINCE JIMENEZ, KASI GARZA Unknown Unavailabl e Laboratory Report Ordering Provider Test Date Status KASI VELEZ MD 03/24/2012 09:36:00-0400 Final Obs # Observation Date Value ABNL Reference Status Pe rforming Location 1 ALT (Alanine aminotransferase) 03/24/2012 14:56-0400 25 10-35 U/L Final
--- OUTSIDE RECORDS SUMMARY | 2023-06-01 06:10 | External Medical Summary ---
Author Name PRINCE JIMENEZ Organization K09:[facility] [address] [place] [address] Support Name Relationship Address Phone KASI VELEZ MD PROV Unknown Unavailabl e Laboratory Report Ordering Provider Test Date Status KASI VELEZ MD 03/24/2012 09:36:00-0400 Final Obs # Observation Date Value ABNL Reference Status Pe rforming Location 1 BUN 03/24/2012 14:56-0400 14 6-20 mg/dL Final 2 Creatinine 03/24/2012 14:56-0400 0.9 0.5-1.1 mg/dL Final GFR should be used to assess renal function. Plasma/Serum creatinine may not be able to properly reflect renal function in some cases.
--- OUTSIDE RECORDS SUMMARY | 2023-06-01 06:10 | External Medical Summary ---
Author Name PRINCE JIMENEZ Organization K01:[facility] [address] [address] Support Name Relationship Address Phone KASI VELEZ MD Unknown Unavailabl e Laboratory Report Ordering Provider Test Date Status KASI VELEZ MD 12/23/2011 12:51:00-0400 Final Obs # Observation Date Value ABNL Reference Status Pe rforming Location 1 ALT (Alanine aminotransferase) 12/24/2011 00:45-0400 18 10-35 U/L Final
--- OUTSIDE RECORDS SUMMARY | 2023-06-01 06:10 | External Medical Summary ---
Author Name PRINCE JIMENEZ Organization K0G:[facility], [address] [place] [address] Support Name Relationship Address Phone PRINCE JIMENEZ, KASI GARZA Unknown Unavailabl e Laboratory Report Ordering Provider Test Date Status KASI VELEZ MD 12/23/2011 12:51:00-0400 Final Obs # Observation Date Value ABNL Reference Status Pe rforming Location 1 hours fasting 12/23/2011 12:53-0400 12 hours Final 2 Triglyceride 12/24/2011 00:45-0400 148 <200 mg/dL Final TRIGLYCERIDE REFERENCE RANGES (mg/dL) [...]
--- OUTSIDE RECORDS SUMMARY | 2023-06-01 06:11 | External Medical Summary ---
Author Name Unknown Organization K01:[facility], [address] [id number] Support Name Relationship Address Phone DANNY HOLDER DO PROV Unknown Unav ailable Laboratory Report Ordering Provider Test Date Status DANNY HOLDER DO 06/15/2011 19:14-0400 nal Obs # Observation Date Value ABNL Reference Status Pe rforming Location 1 Glucose, meter 06/16/2011 12:27-0400 180 H 70-120 mg/dl Final
--- OUTSIDE RECORDS SUMMARY | 2023-06-01 06:11 | External Medical Summary ---
Author Name Unknown Organization K01:[facility], [address] [facility] [address] Support Name Relationship Address Phone DEMI PATECARLINEREBECCA Verónica PROV Unknown Unavailabl e Laboratory Report Ordering Provider Test Date Status REBECCA SIMMS DO 06/16/2011 05:24-0400 Final Obs # Observation Date Value ABNL Reference Status Pe rforming Location 1 TSH 06/16/2011 06:29-0400 0.08 L 0.27-4.2 uIU/mL Final
--- OUTSIDE RECORDS SUMMARY | 2023-06-01 06:11 | External Medical Summary ---
Author Name MATT HOLDER DO Organization K01:[facility], [address] [address] Support Name Relationship Address Phone DANNY HOLDER DO PROV Unknown Unav ailable Laboratory Report Ordering Provider Test Date Status DANNY HOLDER DO 06/16/2011 22:07-0400 Fi nal Obs # Observation Date Value ABNL Reference Status Pe rforming Location 1 Glucose, meter 06/17/2011 11:42-0400 140 H 70-120 mg/dl Final
--- OUTSIDE RECORDS SUMMARY | 2023-06-01 06:11 | External Medical Summary ---
Author Name Unknown Organization K01:[facility], [address] [address] Support Name Relationship Address Phone DANNY HOLDER DO PROV Unknown Unav ailable Laboratory Report Ordering Provider Test Date Status DANNY HOLDER DO 06/15/2011 14:20-0400 nal Obs # Observation Date Value ABNL Reference Status Pe rforming Location 1 Glucose, meter 06/16/2011 12:27-0400 185 H 70-120 mg/dl Final
--- OUTSIDE RECORDS SUMMARY | 2023-06-01 06:11 | External Medical Summary ---
Author Name Unknown Organization K01:[facility], [address] [id number] Support Name Relationship Address Phone KASI VELEZ MD PROV Unknown Unavailab le Laboratory Report Ordering Provider Test Date Status KASI VELEZ MD 05/13/2011 14:26-0400 Final Obs # Observation Date Value ABNL Reference Status Pe rforming Location 1 TSH 05/13/2011 21:15-0400 0.47 0.27-4.2 uIU/mL Final
--- OUTSIDE RECORDS SUMMARY | 2023-06-01 06:11 | External Medical Summary ---
Author Name MATT HOLDER DO Organization K01:[facility], [address] [address] Support Name Relationship Address Phone DANNY HOLDER DO PROV Unknown Unav ailable Laboratory Report Ordering Provider Test Date Status DANNY HOLDER DO 06/16/2011 11:37-0400 Fi nal Obs # Observation Date Value ABNL Reference Status Pe rforming Location 1 Glucose, meter 06/17/2011 11:43-0400 129 H 70-120 mg/dl Final
--- OUTSIDE RECORDS SUMMARY | 2023-06-01 06:11 | External Medical Summary ---
Author Name MATT HOLDER DO Organization K01:[facility], [address] [address] Support Name Relationship Address Phone DANNY HOLDER DO PROV Unknown Unav ailable Laboratory Report Ordering Provider Test Date Status DANNY HOLDER DO 06/16/2011 07:34-0400 Fi nal Obs # Observation Date Value ABNL Reference Status Pe rforming Location 1 Glucose, meter 06/17/2011 11:43-0400 146 H 70-120 mg/dl Final
--- OUTSIDE RECORDS SUMMARY | 2023-06-01 06:11 | External Medical Summary ---
Author Name Unknown Organization K01:[facility], [address] [id number] Support Name Relationship Address Phone STEVE VAZQUEZ DO PROV Unknown Unavailable Laboratory Report Ordering Provider Test Date Status STEVE VAZQUEZ DO 06/15/2011 17:-0400 Final Obs # Observation Date Value ABNL Reference Status Pe rforming Location 1 Calcium 06/15/2011 17:55-0400 8.7 8.3-10.5 mg/dL Final
--- OUTSIDE RECORDS SUMMARY | 2023-06-01 06:11 | External Medical Summary ---
Author Name Unknown Organization K01:[facility], [address] [id number] Support Name Relationship Address Phone DANNY HOLDER DO PROV Unknown Unav ailable Laboratory Report Ordering Provider Test Date Status DANNY HOLDER DO 06/15/2011 12:22-0400 nal Obs # Observation Date Value ABNL Reference Status Pe rforming Location 1 Glucose, meter 06/16/2011 12:27-0400 152 H 70-120 mg/dl Final
--- OUTSIDE RECORDS SUMMARY | 2023-06-01 06:11 | External Medical Summary ---
Author Name Unknown Organization [employer] Support Name Relationship Address Phone DANNY HOLDER DO PROV Unknown Unav ailable Laboratory Report Ordering Provider Test Date Status DANNY HOLDER DO 06/15/2011 08:49-0400 Fi nal Obs # Observation Date Value ABNL Reference Status Pe rforming Location 1 Glucose, meter 06/16/2011 05:44-0400 73 70-120 mg/dl Final
--- OUTSIDE RECORDS SUMMARY | 2023-06-01 06:11 | External Medical Summary ---
Author Name Unknown Organization K01:[facility], [address] [id number] Support Name Relationship Address Phone RADHA GONZALEZ MD PROV Unknown Unavai lable Laboratory Report Ordering Provider Test Date Status RADHA GONZALEZ MD 06/16/2011 17:33-0400 Heather l Obs # Observation Date Value ABNL Reference Status Pe rforming Location 1 CK 06/16/2011 18:25-0400 133 34-174 U/L Final 2 CK-MB 06/16/2011 18:29-0400 2.6 0-8.9 ng/mL Final 3 CK-MB Relative Index 06/16/2011 18:29-0400 2.0 0-4 % Final
--- OUTSIDE RECORDS SUMMARY | 2023-06-01 06:11 | External Medical Summary ---
Author Name Unknown Organization K01:[facility], [address] [id number] Support Name Relationship Address Phone MACO GEE MD PROV Unknown Unavailabl e Laboratory Report Ordering Provider Test Date Status MACO GEE MD 06/15/2011 12:25-0400 Final Obs # Observation Date Value ABNL Reference Status Pe rforming Location 1 Calcium 06/15/2011 13:140400 9.0 8.3-10.5 mg/dL Final
--- OUTSIDE RECORDS SUMMARY | 2023-06-01 06:11 | External Medical Summary ---
Author Name Unknown Organization K01:[facility], [address] [facility] [address] Support Name Relationship Address Phone DANNY HOLDER DO PROV Unknown Unav ailable Laboratory Report Ordering Provider Test Date Status DANNY HOLDER DO 05/27/2011 09:42-0400 Fi nal Obs # Observation Date Value ABNL Reference Status Pe rforming Location 1 BUN 1 10:55-040 0 15 6-20 mg/dL Final 2 Creatinine 1 10:55-040 0 0.8 0.5-1.1 mg/dL Final 3 Creatinine 1 10:55-040 0 GFR should be used to assess renal function. Plasma/Serum creatinine may not be able to properly reflect renal function in some cases. Final 4 Sodium 1 10:55-040 0 141 135-146 mmol/L Final 5 Potassium 1 10:55-040 0 4.8 3.5-5.1 mmol/L Final 6 Cl 1 10:55-040 0 101 98-111 mmol/L Final 7 CO2 1 10:55-040 0 31 22-32 mmol/L Final 8 Glucose 1 10:55-040 0 86 70-120 mg/dL Final 9 Anion gap 1 10:55-040 0 9 7-15 mmol/L Final 10 Calcium 1 10:55-040 0 9.5 8.3-10.5 mg/dL Final 11 GFR / 1.73 sq M.predicted 1 10:55-040 0 >60.0 >60 mL/min Final
--- OUTSIDE RECORDS SUMMARY | 2023-06-01 06:11 | External Medical Summary ---
Author Name Unknown Organization K01:[facility], [address] [id number] Support Name Relationship Address Phone MACO GEE MD PROV Unknown Unavailabl e Laboratory Report Ordering Provider Test Date Status MACO GEE MD 06/16/2011 05:24-0400 Final Obs # Observation Date Value ABNL Reference Status Pe rforming Location 1 Calcium 06/16/2011 06:070400 8.6 8.3-10.5 mg/dL Final
--- OUTSIDE RECORDS SUMMARY | 2023-06-01 06:11 | External Medical Summary ---
Author Name Unknown Organization K01:[facility], [address] [id number] Support Name Relationship Address Phone SIMMSREBECCA WALTER DO PROV Unknown Unavailabl e Laboratory Report Ordering Provider Test Date Status REBECCA SIMMS DO 06/16/2011 05:24-0400 Final Obs # Observation Date Value ABNL Reference Status Pe rforming Location 1 T4, Free 06/16/2011 06:29-0400 1.58 0.7-1.7 ng/dL Final
--- OUTSIDE RECORDS SUMMARY | 2023-06-01 06:11 | External Medical Summary ---
Author Name Unknown Organization K0G:[facility], [address] [place] [address] Support Name Relationship Address Phone KASI VELEZ MD PROV Unknown Unavailab le Laboratory Report Ordering Provider Test Date Status KASI VELEZ MD 05/13/2011 14: Final Obs # Observation Date Value ABNL Reference Status Pe rforming Location 1 HOURS FASTING 05/13/20 11 14: 00 12 hours Final 2 Triglyceride 05/13/20 11 : 106 <200 mg/dL Final 3 Triglyceride 05/13/20 11 21: 00 Final 4 Triglyceride 05/13/20 11 21: TRIGLYCERIDE REFERENCE RANGES (mg/dL) Final 5 Triglyceride 05/13/20 11 : 00 Final 6 Triglyceride 05/13/20 11 : 00 <150 NORMAL Final 7 Triglyceride 05/13/20 11 21: 00 150-199 BORDERLINE HIGH Final 8 Triglyceride 05/13/20 11 21: 00 200-499 HIGH Final 9 Triglyceride 05/13/20 11 21: 00 >499 VERY HIGH Final 10 Cholesterol 05/13/20 11 : 00 185 <200 mg/dL Final 11 HDL 05/13/20 11 21: 00 55 40-59 mg/dL Final 12 Cholesterol / HDL ratio 05/13/20 11 21: 00 3.4 Final 13 LDL (calculated) 05/13/20 11 21: 00 109 0-129 mg/dL Final 14 LDL (calculated) 05/13/20 11 21: 00 Final 15 LDL (calculated) 05/13/20 11 21: 00 LIPID PANEL REFERENCE RANGES (mg/dL) Final 16 LDL (calculated) 05/13/20 11 21: 00 Final 17 LDL (calculated) 05/13/20 11 21:-04 00 LDL CHOLESTEROL Final 18 LDL (calculated) 05/13/20 11 21:-04 00 <100 OPTIMAL GOAL FOR HIGH RISK PATIENTS Final 19 LDL (calculated) 05/13/20 11 21:-04 00 100-129 NEAR OR ABOVE NORMAL Final 20 LDL (calculated) 05/13/20 11 21:- 00 130-159 BORDERLINE HIGH Final 21 LDL (calculated) 05/13/20 11 21:26-04 00 160-189 HIGH Final 22 LDL (calculated) 05/13/20 11 21:-04 00 >189 VERY HIGH Final 23 LDL (calculated) 05/13/20 11 21:-04 00 Final 24 LDL (calculated) 05/13/20 11 21:- 00 TOTAL CHOLESTEROL Final 25 LDL (calculated) 05/13/20 11 21:- 00 <200 DESIRABLE Final 26 LDL (calculated) 05/13/20 11 21:-04 00 200-239 BORDERLINE HIGH Final 27 LDL (calculated) 05/13/20 11 21:26-04 00 >239 HIGH Final 28 LDL (calculated) 05/13/20 11 21:26-04 00 Final 29 LDL (calculated) 05/13/20 11 21:-04 00 HDL [id number] Final 30 LDL (calculated) 05/13/20 11 21:-04 00 <40 LOW Final 31 LDL (calculated) 05/13/20 11 21:26-04 00 40-59 NORMAL Final 32 LDL (calculated) 05/13/20 11 21:26-04 00 >59 HIGH Final
--- OUTSIDE RECORDS SUMMARY | 2023-06-01 06:11 | External Medical Summary ---
Author Name Unknown Organization K01:[facility], [address] [facility] [address] Support Name Relationship Address Phone KASI VELEZ MD PROV Unknown Unavailab le Laboratory Report Ordering Provider Test Date Status KASI VELEZ MD 05/13/2011 14:0400 Final Obs # Observation Date Value ABNL Reference Status Pe rforming Location 1 BUN 1 21:-040 0 19 6-20 mg/dL Final 2 Creatinine 1 21:-040 0 0.9 0.5-1.1 mg/dL Final 3 Creatinine 1 21:-040 0 GFR should be used to assess renal function. Plasma/Serum creatinine may not be able to properly reflect renal function in some cases. Final 4 Sodium 1 21:-040 0 144 135-146 mmol/L Final 5 Potassium 1 21:-040 0 4.5 3.5-5.1 mmol/L Final 6 Cl 1 21:-040 0 101 98-111 mmol/L Final 7 CO2 1 21:-040 0 29 22-32 mmol/L Final 8 Glucose 1 21:-040 0 109 70-120 mg/dL Final 9 Anion gap 1 21:-040 0 14 7-15 mmol/L Final 10 Calcium 1 21:-040 0 9.9 8.3-10.5 mg/dL Final 11 GFR / 1.73 sq M.predicted 1 21:-040 0 >60.0 >60 mL/min Final
--- OUTSIDE RECORDS SUMMARY | 2023-06-01 06:11 | External Medical Summary ---
Author Name Unknown Organization K01:[facility], [address] [id number] Support Name Relationship Address Phone KASI VELEZ MD PROV Unknown Unavailab le Laboratory Report Ordering Provider Test Date Status KASI VELEZ MD 12/31/2010 12:14-0400 Final Obs # Observation Date Value ABNL Reference Status Pe rforming Location 1 HbA1C 12/31/2010 22:140 6.4 3.4-6.4 % Final 2 Glucose, estimated average 12/31/2010 22:14-0400 137 H <126 MG/DL Final
--- OUTSIDE RECORDS SUMMARY | 2023-06-01 06:11 | External Medical Summary ---
Author Name Unknown Organization K01:[facility], [address] [id number] Support Name Relationship Address Phone SIMMS REBECCA PATE PROV Unknown Unavailabl e Laboratory Report Ordering Provider Test Date Status REBECCA SIMMS DO 06/16/2011 05:25-0400 Final Obs # Observation Date Value ABNL Reference Status Pe rforming Location 1 Calcium, ionized 06/16/2011 06:06-0400 1.12 L 1.13-1.32 mmol/L Final
--- OUTSIDE RECORDS SUMMARY | 2023-06-01 06:11 | External Medical Summary ---
Author Name Unknown Organization K01:[facility], [address] [id number] Support Name Relationship Address Phone DANNY HOLDER DO PROV Unknown Unav ailable Laboratory Report Ordering Provider Test Date Status DANNY HOLDER DO 05/10/2011 09:-0400 Fi nal Obs # Observation Date Value ABNL Reference Status Pe rforming Location 1 BUN 05/10/2011 10:82-0400 18 6-20 mg/dL Final
--- OUTSIDE RECORDS SUMMARY | 2023-06-01 06:11 | External Medical Summary ---
Author Name Unknown Organization K01:[facility], [address] [id number] Support Name Relationship Address Phone KASI VELEZ MD PROV Unknown Unavailab le Laboratory Report Ordering Provider Test Date Status KASI VELEZ MD 05/13/2011 14:26-0400 Final Obs # Observation Date Value ABNL Reference Status Pe rforming Location 1 HbA1C 05/13/2011 22:55-0400 7.2 H 3.4-6.4 % Final 2 Glucose, estimated average 05/13/2011 22:55-0400 160 H <126 MG/DL Final
--- OUTSIDE RECORDS SUMMARY | 2023-06-01 06:11 | External Medical Summary ---
Author Name Unknown Organization K01:[facility], [address] [address] Support Name Relationship Address Phone RADHA GONZALEZ MD PROV Unknown Unavai lable Laboratory Report Ordering Provider Test Date Status RADHA GONZALEZ MD 06/16/2011 17:33-0400 Heather tom Obs # Observation Date Value ABNL Reference Status Pe rforming Location 1 Troponin T, cardiac 06/16/2011 18:29-0400 <0.010 <0.100 ng/mL Final
--- OUTSIDE RECORDS SUMMARY | 2023-06-01 06:11 | External Medical Summary ---
Author Name MATT HOLDER DO Organization K01:[facility], [address] [address] Support Name Relationship Address Phone DANNY HOLDER DO PROV Unknown Unav ailable Laboratory Report Ordering Provider Test Date Status DANNY HOLDER DO 06/16/2011 16:44-0400 Fi nal Obs # Observation Date Value ABNL Reference Status Pe rforming Location 1 Glucose, meter 06/17/2011 11:43-0400 96 70-120 mg/dl Final
--- OUTSIDE RECORDS SUMMARY | 2023-06-01 06:11 | External Medical Summary ---
Author Name Unknown Organization K01:[facility], [address] [address] Support Name Relationship Address Phone KASI VELEZ MD PROV Unknown Unavailab le Laboratory Report Ordering Provider Test Date Status KASI VELEZ MD 05/13/2011 14:-0400 Final Obs # Observation Date Value ABNL Reference Status Pe rforming Location 1 ALT (Alanine aminotransferase) 05/13/2011 21:-0400 21 10-35 U/L Final
--- OUTSIDE RECORDS SUMMARY | 2023-06-01 06:11 | External Medical Summary ---
Author Name Unknown Organization K01:[facility], [address] [facility] [address] Support Name Relationship Address Phone DANNY HOLDER DO PROV Unknown Unav ailable Laboratory Report Ordering Provider Test Date Status DANNY HOLDER DO 05/10/2011 09:260400 nal Obs # Observation Date Value ABNL Reference Status Pe rforming Location 1 Creatinine 1 10:45-040 0 0.9 0.5-1.1 mg/dL Final 2 Creatinine 1 10:45-040 0 GFR should be used to assess renal function. Plasma/Serum creatinine may not be able to properly reflect renal function in some cases. Final 3 GFR / 1.73 sq M.predicted 1 10:45-040 0 >60.0 >60 mL/min Final
--- OUTSIDE RECORDS SUMMARY | 2023-06-01 06:11 | External Medical Summary ---
Author Name Unknown Organization K01:[facility], [address] [address] Support Name Relationship Address Phone KASI VELEZ MD PROV Unknown Unavailab le Laboratory Report Ordering Provider Test Date Status KASI VELEZ MD 04/28/2011 13:58-0400 Final Obs # Observation Date Value ABNL Reference Status Pe rforming Location 1 Albumin, Urine 04/29/2011 01:110400 0.60 0-2 mg/dL Final 2 Creatinine, Random Urine 04/29/2011 01:11-0400 37 mg/dL Final 3 Microalbumin Ratio 04/29/2011 01:11-0400 16 <31 mg/g creat Final
--- OUTSIDE RECORDS SUMMARY | 2023-06-01 06:12 | External Medical Summary ---
Author Name Unknown Organization [employer] [facility] tem Support Name Relationship Address Phone KASI VELEZ MD PROV Unknown Unavailab le Laboratory Report Ordering Provider Test Date Status KASI VELEZ MD 10/01/2010 12:16-0500 F Obs # Observation Date Value ABNL Reference Status Pe rforming Location 1 BUN SerPl-nc 10/01/2010 15:12-0500 18 6-20 mg/dL Final 2 Creat SerPl-mCnc 10/01/2010 15:12-0500 0.8 0.7-1.5 mg/dL Final 3 Sodium SerPl-sCnc 10/01/2010 15:12-0500 139 135-146 mmol/L Final 4 Potassium SerPl-sCnc 10/01/2010 15:12-0500 4.4 3.5-5.1 mmol/L Final 5 Chloride SerPl-sCnc 10/01/2010 15:12-0500 103 98-111 mmol/L Final 6 CO2 SerPl-sCnc 10/01/2010 15:12-0500 27 22-32 mmol/L Final 7 Glucose SerPl-nc 10/01/2010 15:12-0500 121 H 70-120 mg/dL Final 8 Anion Gap SerPl-sCnc 10/01/2010 15:12-0500 9 7-15 mEq/L Final 9 Calcium SerPl-mCnc 10/01/2010 15:12-0500 9.7 8.3-10.5 mg/dL Final 10 Pred GFR SerPl MDRD-vRate 10/01/2010 15:12-0500 >60.0 >60 mL/min Final
--- OUTSIDE RECORDS SUMMARY | 2023-06-01 06:12 | External Medical Summary ---
Author Name Unknown Organization [employer] [facility] tem Support Name Relationship Address Phone JESSA STEELE RPH Unknown Unavailable Laboratory Report Ordering Provider Test Date Status JESSA STEELE RPH 07/23/2010 10:38-0400 F Obs # Observation Date Value ABNL Reference Status Pe rforming Location 1 PT PPP Qn 07/23/2010 17:130400 28.0 H 12.5-14.3 seconds Final 2 INR PPP Qn 07/23/2010 17:13-0400 2.68 H 0.94-1.12 Final
--- OUTSIDE RECORDS SUMMARY | 2023-06-01 06:12 | External Medical Summary ---
Author Name Unknown Organization K01:[facility], [address] [facility] [address] Support Name Relationship Address Phone KASI VELEZ MD PROV Unknown Unavailab le Laboratory Report Ordering Provider Test Date Status KASI VELEZ MD 12/31/2010 12: Final Obs # Observation Date Value ABNL Reference Status Pe rforming Location 1 BUN 12/31/2010 20:31-0400 15 6-20 mg/dL Final 2 Creatinine 12/31/2010 20:31-0400 0.8 0.7-1.5 mg/dL Final 3 Sodium 12/31/2010 20:31-0400 140 135-146 mmol/L Final 4 Potassium 12/31/2010 20:31-0400 4.8 3.5-5.1 mmol/L Final 5 Cl 12/31/2010 20:31-0400 101 98-111 mmol/L Final 6 CO2 12/31/2010 20:31-0400 29 22-32 mmol/L Final 7 Glucose 12/31/2010 20:31-0400 117 70-120 mg/dL Final 8 Anion gap 12/31/2010 20:31-0400 10 7-15 mmol/L Final 9 Calcium 12/31/2010 20:31-0400 9.8 8.3-10.5 mg/dL Final 10 GFR / 1.73 sq M.predicted 12/31/2010 20:31-0400 >60.0 >60 mL/min Final
--- OUTSIDE RECORDS SUMMARY | 2023-06-01 06:12 | External Medical Summary ---
Author Name Unknown Organization K01:[facility], [address] [address] Support Name Relationship Address Phone KASI VELEZ MD PROV Unknown Unavailab le Laboratory Report Ordering Provider Test Date Status KASI VELEZ MD 12/31/2010 12:14-0400 Final Obs # Observation Date Value ABNL Reference Status Pe rforming Location 1 ALT (Alanine aminotransferase) 12/31/2010 20:31-0400 16 10-35 U/L Final
--- OUTSIDE RECORDS SUMMARY | 2023-06-01 06:12 | External Medical Summary ---
Author Name Unknown Organization [facility] tem Support Name Relationship Address Phone Unavailable PROV Unknown Unavailable Laboratory Report Ordering Provider Test Date Status 06/25/2010 07:57-0400 F Obs # Observation Date Value ABNL Reference Status Pe rforming Location 1 Hgb A1c Fr Bld 06/25/2010 15:13-0400 7.4 H 3.4-6.4 % Final 2 Mean Glucose Bld gHb Est-mCnc 06/25/2010 15:13-0400 166 H <126 MG/DL Final
--- OUTSIDE RECORDS SUMMARY | 2023-06-01 06:12 | External Medical Summary ---
Author Name Unknown Organization [employer] [facility] tem Support Name Relationship Address Phone Unavailable PROV Unknown Unavailable Laboratory Report Ordering Provider Test Date Status 05/05/2010 13:39-0400 F Obs # Observation Date Value ABNL Reference Status Pe rforming Location 1 BUN [facility]Pl-[facility] 05/05/2010 21:53-0400 18 6-20 mg/dL Final 2 Creat [facility]Pl-[facility] 05/05/2010 21:53-0400 0.8 0.7-1.5 mg/dL Final 3 Sodium [facility] 05/05/2010 21:53-0400 140 135-146 mmol/L Final [address] [facility] 05/05/2010 21:53-0400 4.7 3.5-5.1 mmol/L Final 5 Chloride [facility] 05/05/2010 21:53-0400 102 98-111 mmol/L Final 6 CO2 [facility] 05/05/2010 21:53-0400 24 22-32 mmol/L Final 7 Glucose [facility]Pl-[facility] 05/05/2010 21:53-0400 121 H 70-120 mg/dL Final [address] [facility] 05/05/2010 21:53-0400 14 7-15 mEq/L Final [address] [facility] 05/05/2010 21:53-0400 9.9 8.3-10.5 mg/dL Final 10 Pred GFR SerPl MDRD-vRate 05/05/2010 21:53-0400 >60.0 >60 mL/min Final
--- OUTSIDE RECORDS SUMMARY | 2023-06-01 06:12 | External Medical Summary ---
Author Name Unknown Organization [employer] [facility] tem Support Name Relationship Address Phone JESSA STEELE RPH Unknown Unavailable Laboratory Report Ordering Provider Test Date Status JESSA STEELE RPH 09/16/2010 07:48-0500 F Obs # Observation Date Value ABNL Reference Status Pe rforming Location 1 PT PPP Qn 09/16/2010 14:40-0500 26.5 H 12.5-14.3 seconds Final 2 INR PPP Qn 09/16/2010 14:40-0500 2.50 H 0.94-1.12 Final
--- OUTSIDE RECORDS SUMMARY | 2023-06-01 06:12 | External Medical Summary ---
Author Name Unknown Organization [employer] [facility] tem Support Name Relationship Address Phone KASI VELEZ MD PROV Unknown Unavailab le Laboratory Report Ordering Provider Test Date Status KASI VELEZ MD 10/01/2010 12:16-0500 F Obs # Observation Date Value ABNL Reference Status Pe rforming Location 1 ALT SerPl-cCnc 10/01/2010 15:12-0500 18 10-35 U/L Final
--- OUTSIDE RECORDS SUMMARY | 2023-06-01 06:12 | External Medical Summary ---
Author Name Unknown Organization [employer] [facility] tem Support Name Relationship Address Phone Unavailable PROV Unknown Unavailable Laboratory Report Ordering Provider Test Date Status 06/25/2010 07:57-0400 F Obs # Observation Date Value ABNL Reference Status Pe rforming Location 1 BUN [facility] 06/25/2010 11:42-0400 21 H 6-20 mg/dL Final 2 Creat [facility] 06/25/2010 11:42-0400 0.8 0.7-1.5 mg/dL Final 3 Sodium [facility] 06/25/2010 11:42-0400 137 135-146 mmol/L Final 4 Potassium [facility] 06/25/2010 11:42-0400 4.3 3.5-5.1 mmol/L Final 5 Chloride [facility] 06/25/2010 11:42-0400 98 98-111 mmol/L Final 6 CO2 [facility] 06/25/2010 11:42-0400 28 22-32 mmol/L Final 7 Glucose [facility] 06/25/2010 11:42-0400 141 H 70-120 mg/dL Final 8 Anion Gap [facility] 06/25/2010 11:42-0400 11 7-15 mEq/L Final 9 Calcium [facility] 06/25/2010 11:42-0400 10.2 8.3-10.5 mg/dL Final 10 Pred GFR SerPl MDRD-vRate 06/25/2010 11:42-0400 >60.0 >60 mL/min Final
--- OUTSIDE RECORDS SUMMARY | 2023-06-01 06:12 | External Medical Summary ---
Author Name Unknown Organization [employer] [facility] tem Support Name Relationship Address Phone KASI VELEZ MD PROV Unknown Unavailab le Laboratory Report Ordering Provider Test Date Status KASI VELEZ MD 10/01/2010 12:16-0500 F Obs # Observation Date Value ABNL Reference Status Pe rforming Location 1 Hgb A1c Fr Bld 10/01/2010 22:40-0500 7.4 H 3.4-6.4 % Final 2 Mean Glucose Bld gHb Est-mCnc 10/01/2010 22:40-0500 166 H <126 MG/DL Final
--- OUTSIDE RECORDS SUMMARY | 2023-06-01 06:12 | External Medical Summary ---
Author Name Unknown Organization [employer] [facility] tem Support Name Relationship Address Phone Unavailable PROV Unknown Unavailable Laboratory Report Ordering Provider Test Date Status 05/05/2010 13:39-0400 F Obs # Observation Date Value ABNL Reference Status Pe rforming Location [address] [facility] SerPl-[facility] 05/05/2010 21:50-0400 0.66 0.27-4.2 uIU/mL Final
--- OUTSIDE RECORDS SUMMARY | 2023-06-01 06:12 | External Medical Summary ---
Author Name Unknown Organization [employer] [facility] tem Support Name Relationship Address Phone KASI VELEZ MD PROV Unknown Unavailab le Laboratory Report Ordering Provider Test Date Status KASI VELEZ MD 10/01/2010 12:16-0500 F Obs # Observation Date Value ABNL Reference Status Pe rforming Location 1 TSH SerPl-aCnc 10/01/2010 20:37-0500 0.04 L 0.27-4.2 uIU/mL Final 2 TSH SerPl-aCnc 10/01/2010 20:37-0500 Final RESULTS RECHECKED
--- OUTSIDE RECORDS SUMMARY | 2023-06-01 06:12 | External Medical Summary ---
Author Name Unknown Organization K0G:[facility], [address] [place] [address] Support Name Relationship Address Phone KASI VELEZ MD PROV Unknown Unavailab le Laboratory Report Ordering Provider Test Date Status KASI VELEZ MD 12/31/2010 12: Final Obs # Observation Date Value ABNL Reference Status Pe rforming Location 1 HOURS FASTING 01/01/20 11 12:15-04 00 12 hours Final 2 Triglyceride 01/01/20 11 20:31-04 00 113 60-245 mg/dL Final 3 Cholesterol 01/01/20 11 20:31-04 00 187 <200 mg/dL Final 4 HDL 01/01/20 11 20:31- 00 61 H 40-59 mg/dL Final 5 Cholesterol / HDL ratio 01/01/20 11 20:31-04 00 3.1 Final 6 LDL (calculated) 01/01/20 11 20:31- 00 103 0-129 mg/dL Final 7 LDL (calculated) 01/01/20 11 20:31- 00 Final 8 LDL (calculated) 01/01/20 11 20:31-04 00 LIPID PANEL REFERENCE RANGES (mg/dL) Final 9 LDL (calculated) 01/01/20 11 20:31-04 00 Final 10 LDL (calculated) 01/01/20 11 20:31-04 00 LDL CHOLESTEROL Final 11 LDL (calculated) 01/01/20 11 20:31- 00 <100 OPTIMAL GOAL FOR HIGH RISK PATIENTS Final 12 LDL (calculated) 01/01/20 11 20:31- 00 100-129 NEAR OR ABOVE NORMAL Final 13 LDL (calculated) 01/01/20 11 20:31-04 00 130-159 BORDERLINE HIGH Final 14 LDL (calculated) 01/01/20 11 20:31-04 00 160-189 HIGH Final 15 LDL (calculated) 01/01/20 11 20:31- 00 >189 VERY HIGH Final 16 LDL (calculated) 01/01/20 11 20:31-04 00 Final 17 LDL (calculated) 01/01/20 11 20:31-04 00 TOTAL CHOLESTEROL Final 18 LDL (calculated) 01/01/20 11 20:31-04 00 <200 DESIRABLE Final 19 LDL (calculated) 01/01/20 11 20:31-04 00 200-239 BORDERLINE HIGH Final 20 LDL (calculated) 01/01/20 11 20:31-04 00 >239 HIGH Final 21 LDL (calculated) 01/01/20 11 20:31-04 00 Final 22 LDL (calculated) 01/01/20 11 20:31-04 00 HDL [id number] Final 23 LDL (calculated) 01/01/20 11 20:31-04 00 <40 LOW Final 24 LDL (calculated) 01/01/20 11 20:31-04 00 40-59 NORMAL Final 25 LDL (calculated) 01/01/20 11 20:31-04 00 >59 HIGH Final
--- OUTSIDE RECORDS SUMMARY | 2023-06-01 06:12 | External Medical Summary ---
Author Name Unknown Organization [employer] [facility] tem Support Name Relationship Address Phone Unavailable PROV Unknown Unavailable Laboratory Report Ordering Provider Test Date Status 06/25/2010 07:53-0400 F Obs # Observation Date Value ABNL Reference Status Pe rforming Location 1 PT PPP Qn 06/25/2010 13:07 25.6 H 12.5-14.3 seconds Final 2 INR PPP Qn 06/25/2010 13:070 2.39 H 0.94-1.12 Final
--- OUTSIDE RECORDS SUMMARY | 2023-06-01 06:12 | External Medical Summary ---
Author Name Unknown Organization [employer] [facility] tem Support Name Relationship Address Phone Unavailable PROV Unknown Unavailable Laboratory Report Ordering Provider Test Date Status 05/05/2010 13:41-0400 F Obs # Observation Date Value ABNL Reference Status Pe rforming Location 1 PT PPP Qn 05/05/2010 20:01-0400 24.3 H 12.5-14.3 seconds Final 2 INR PPP Qn 05/05/2010 20:01-0400 2.23 H 0.90-1.09 Final
--- OUTSIDE RECORDS SUMMARY | 2023-06-01 06:12 | External Medical Summary ---
Author Name Unknown Organization [employer] [facility] tem Support Name Relationship Address Phone Unavailable PROV Unknown Unavailable Laboratory Report Ordering Provider Test Date Status 06/25/2010 07:57-0400 F Obs # Observation Date Value ABNL Reference Status Pe rforming Location 1 ALT SerPl-cCnc 06/25/2010 11:42-0400 16 10-35 U/L Final
--- OUTSIDE RECORDS SUMMARY | 2023-06-01 06:12 | External Medical Summary ---
Author Name Unknown Organization [employer] [facility] tem Support Name Relationship Address Phone JESSA STEELE RPH Unknown Unavailable Laboratory Report Ordering Provider Test Date Status JESSA STEELE RPH 08/17/2010 14:30-0500 F Obs # Observation Date Value ABNL Reference Status Pe rforming Location 1 PT PPP Qn 08/17/2010 22:01-0500 28.4 H 12.5-14.3 seconds Final 2 INR PPP Qn 08/17/2010 22:01-0500 2.73 H 0.94-1.12 Final
--- OUTSIDE RECORDS SUMMARY | 2023-06-01 06:12 | External Medical Summary ---
Author Name Unknown Organization [employer] [facility] tem Support Name Relationship Address Phone Unavailable PROV Unknown Unavailable Laboratory Report Ordering Provider Test Date Status 05/28/2010 07:52-0400 F Obs # Observation Date Value ABNL Reference Status Pe rforming Location 1 PT PPP Qn 05/28/2010 13:50-0400 25.1 H 12.5-14.3 seconds Final 2 INR PPP Qn 05/28/2010 13:50-0400 2.33 H 0.94-1.12 Final
--- OUTSIDE RECORDS SUMMARY | 2023-06-01 06:12 | External Medical Summary ---
Author Name Unknown Organization [employer] [facility] tem Support Name Relationship Address Phone Unavailable PROV Unknown Unavailable Laboratory Report Ordering Provider Test Date Status 06/25/2010 07:57-0400 F Obs # Observation Date Value ABNL Reference Status Pe rforming Location 1 HOURS FASTING 06/25/2010 13:51-0400 hours Final NOT PROVIDED
--- OUTSIDE RECORDS SUMMARY | 2023-06-01 06:12 | External Medical Summary ---
Author Name Unknown Organization [employer] [facility] tem Support Name Relationship Address Phone KASI VELEZ MD PROV Unknown Unavailab le Laboratory Report Ordering Provider Test Date Status KASI VELEZ MD 10/01/2010 12:16-0500 F Obs # Observation Date Value ABNL Reference Status Pe rforming Location 1 LDLc SerPl Direct Assay-mCnc 10/01/2010 18:11-0500 134 H 0-129 mg/dL Final
== END 2023-05-28 09:49 | disposition home or self-care (01) | DRG 638 ==
LOC: EDINP 18:47 → ED 18:47 → SUATTDRO 21:26 → 2N 05-26 12:57

== ENCOUNTER 2023-08-01 08:49 | Inpatient (IN) ==
[2023-08-01] MEDS ORDERED: SODIUM CHLORIDE 0.9% 1,000 ML IV SCH (09:30)
--- NOTE | 2023-08-01 09:39 | Emergency Department Note ---
Impression & Plan Weakness, Acute dehydration, Acute hyperglycemia, Leukocytosis, Hypomagnesemia ED Provider Note NAME: GEENA MAC AGE: 68 SEX: F : 1955 ARRIVES VIA: Walk-In INFORMANT: [Patient] ED PROVIDER(S): [Zachariah Gage MD] CHIEF COMPLAINT: Hyperglycemia HISTORY OF PRESENT ILLNESS: The patient is a 68-year-old female who presents to the ER with a high blood sugar. She is a diabetic. The patient was at same-day surgery for a carotid procedure but, because of the high sugar, the case was canceled. Her sugar was over 500. She received a total of 18 units of subcu insulin before being sent to our ED. Her sugar was at around 400 when she was moved from the same-day surgical unit to the ER. As per the nursing staff in our ED, the sugar is now in the upper 300s. The patient complains of extreme thirst. She is tired. She feels weak. There has been no fever, no respiratory complaints. No urinary complaints. She states that her sugar has been abnormally high for about 2 or 3 weeks. It has been in the 300 range. PMHx/PSHx/Social Hx: See Below PHYSICAL EXAM: GENERAL: Patient is in no acute distress. HEENT: No acute trauma, normocephalic atraumatic, mucous membranes dry, no nasal congestion. NECK: No stridor, no adenopathy, no meningismus, trachea is midline. LUNGS: Clear to auscultation bilaterally, no wheeze, no rhonchi, breath sounds equal. HEART: Without murmurs gallops or rubs, regular rate and rhythm. ABDOMEN: Soft, nontender, no peritonitis. Obese. EXTREMITIES: No cyanosis, full range of motion of all the joints without pain or difficulty. There is some mild erythema and warmth to the right anterior distal leg near the ankle, the patient states this is a chronic skin change for her. NEUROLOGIC: Oriented x 3, no acute motor or sensory deficits, no focal weakness. She does seem sleepy. SKIN: No jaundice, no diaphoresis. DIFFERENTIAL DIAGNOSIS: DKA, hyperglycemia, renal insufficiency/failure, dehydration, electrolyte imbalance, viral illness, bacteremia, UTI, among others. EMERGENCY DEPARTMENT PROCEDURES: MEDICAL DECISION MAKING: There is a mild leukocytosis, this could be consistent with infection or just the stress of her current situation. There is a normal hemoglobin and platelet count. No coagulopathy. Patient did have an elevation to her creatinine although, this is baseline. Blood sugar was initially close to 400, a repeat after treatment showed reduction of the sugar to around 260. There was no elevation to the lactic acid, this certainly makes severe sepsis less likely. Magnesium somewhat low at 1.6, no concerning liver enzyme elevation. Patient did have a lower TSH however, the T4 was normal. Urinalysis showed glucose, no obvious infection. Chest film did not show pneumonia per my review. On exam, there was no obvious source for infection. The patient seemed sleepy and tired. Patient received IV saline, 2.5 L. She was given IV magnesium. The patient feels improved but is still quite weak and washed out. Her blood pressure is borderline low. I do think she deserves further IV hydration, she requires a hospital stay. The source for the hyperglycemia is unclear. I have not been able to identify a bacterial infectious source. I spoke with the patient, I did speak with case management, the on-call hospitalist was consulted. Prior/Outside records/notes reviewed: Same-day surgery note. Recent family practice note. ECG per my interpretation: Indication was weakness. The ECG shows a normal sinus rhythm with a rate of 85. There is no ST elevation, no PVCs. The QTc is 442. Continuous Cardiac Monitoring per my interpretation: An order was placed for continuous cardiac monitoring. The monitor shows a rate of 88 with normal sinus rhythm. Imaging/x-ray results per my interpretation: Chest x-ray showed some changes consistent with her larger body habitus, no obvious pneumonia Chronic Medical/Social conditions affecting care: Diabetes, obesity. Care/Management discussed with: Case management, the on-call hospitalist. Level of care consideration(s): After review of the information above and other included data: --I feel the patient can be managed safely as an outpatient DISPOSITION: Admitted Past Med/Surg History Medical History Mitral valve stenosis Echo 06/2023: Borderline mild mitral stenosis secondary to severe mitral annular calcification Chronic hypoxemic respiratory failure Cataract, bilateral Lumbago with sciatica Lower extremity pain, bilateral Neuropathy feet On home oxygen therapy 3L continuous CHF (congestive heart failure) Follows with Dr. Woodall Subclavian artery stenosis Cerebrovascular duplex study 06/2023: Retrograde flow in the right vertebral artery. 50-69% proximal right subclavian artery stenosis. Antegrade flow in the left vertebral artery. Normal flow in the left subclavian artery. Carotid stenosis, right Cerebrovascular duplex 07/11/23: 80-99% R ICA stenosis. No hemodynamically significant stenosis in the LICA. Diabetes mellitus, type II CKD (chronic kidney disease), stage III Follows with [facility] ELISSA on CPAP CPAP + 3L O2 (O2 is continuous) HTN (hypertension) HLD (hyperlipidemia) Morbid obesity HIT (heparin-induced thrombocytopenia) 2009, [facility] then life flight to [place] > "resolved" Depression with anxiety Hypothyroidism History of pulmonary embolism 2008 s/p zoraida filter GERD (gastroesophageal reflux disease) RLS (restless legs syndrome) History of DVT (deep vein thrombosis) 2008 (during ICU [place] admission/PNA) Presence of IVC filter 2008 Fibromyalgia Surgical History Family history of reaction to anesthesia Brother/niece- PONV Brother- "wakes up violent" History of arthroscopy left ankle History of cholecystectomy History of colon resection secondary to R colon perforation, resected treated with colostomy and eventual reversal in 2008, Dr. Lerma History of colonoscopy History of colostomy reversal History of incisional hernia repair History of thyroidectomy, total 2011 History of tooth extraction History of total right knee replacement History of tracheostomy 06/2009 (per [facility] records), secondary to acute respiratory failure in setting of PNA, reversed a few months later Nausea and vomiting after administration of anesthetic agent Family History Father , age 74 Lung cancer Mother , age 45 Cirrhosis Social History Smoking Status: Former smoker Tobacco Type: Cigarettes Second Hand Exposure: Yes (as a child); Do You Dip or Chew Tobacco: No; Hx Alcohol Use: No Hx Substance Use: No Preferred Language: Polish Communication Ability: Effective Drilling Foreman Required: No Beliefs That Will Affect Care: None marital status: Single Current Living Situation: Alone Current Living Situation Comment: apartment How many Children do You have: 0 Feels Safe at Home: Yes Assistive Devices: Glasses, Oxygen - Continuous and Walker Allergies Allergies Allergy/AdvReac Type Severity Reaction Status Date / Time morphine Allergy Severe Swelling, Verified 08/01/23 05:43 "Violent reaction- almost " dapagliflozin [From Farxiga] Allergy Intermediate Yeast Verified 08/01/23 05:43 infections tetanus toxoid, adsorbed Allergy Intermediate Passed Verified 08/01/23 05:43 out, "got sick" as child bupropion [From Wellbutrin] AdvReac Intermediate Recurrent Verified 08/01/23 05:43 falls as per patient codeine AdvReac Intermediate Hallucinati Verified 08/01/23 05:43 ons empagliflozin AdvReac Intermediate Yeast Verified 08/01/23 05:43 [From Jardiance] infections heparin AdvReac Intermediate HIT, Verified 08/01/23 05:43 "Fluid in lungs" hydrocodone [From Vicodin] AdvReac Intermediate Drowsy Verified 08/01/23 05:43 Home Meds Home Medications Medication Instructions Recorded Confirmed levothyroxine 200 mcg tablet 200 mcg PO QAM 06/09/18 08/01/23 omeprazole 20 mg capsule,delayed 20 mg PO QAM 06/09/18 08/01/23 release dicyclomine 20 mg tablet 20 mg PO QID PRN abdominal pain 03/27/21 08/01/23 docusate sodium 100 mg capsule 100 mg PO BID PRN Constipation 03/27/21 08/01/23 (Colace) insulin aspart U-100 100 unit/mL 6 - 8 unit subcut DIRECTED 03/27/21 08/01/23 (3 mL) subcutaneous pen (Novolog FlexPen U-100 Insulin aspart) levothyroxine 50 mcg tablet 50 mcg PO QAM 03/27/21 08/01/23 meclizine 12.5 mg tablet 12.5 mg PO TID PRN Dizziness 03/27/21 08/01/23 ropinirole 2 mg tablet 2 mg PO HS 09/20/21 08/01/23 potassium chloride 20 mEq 20 meq PO BID 07/14/22 08/01/23 tablet,extended release(part/cryst) metformin 500 mg tablet,extended 500 mg PO QAM 07/15/22 08/01/23 release 24 hr magnesium oxide 400 mg (241.3 mg 400 mg PO BID 08/16/22 08/01/23 magnesium) tablet acetaminophen 500 mg tablet 500 - 1,000 mg PO Q6H PRN Pain 03/05/23 08/01/23 apixaban 5 mg tablet (Eliquis) 5 mg PO BID 03/05/23 08/01/23 cholecalciferol (vitamin D3) 25 25 mcg PO QAM 03/05/23 08/01/23 mcg (1,000 unit) capsule (Vitamin D3) tramadol 50 mg tablet 50 mg PO TID PRN Pain 03/05/23 08/01/23 trazodone 100 mg tablet 100 mg PO HS 03/05/23 08/01/23 duloxetine 60 mg capsule,delayed 60 mg PO QAM 03/23/23 08/01/23 release duloxetine 30 mg capsule,delayed 30 mg PO QAM 05/25/23 08/01/23 release oxycodone 5 mg tablet 5 mg PO Q6H PRN Pain 05/25/23 08/01/23 tirzepatide 2.5 mg/0.5 mL 2.5 mg subcut WK 05/25/23 08/01/23 subcutaneous pen injector (Kevan) aspirin 81 mg tablet,delayed 81 mg PO QAM 07/15/23 08/01/23 release atorvastatin 20 mg tablet 20 mg PO QAM 07/15/23 08/01/23 clopidogrel 75 mg tablet (Plavix) 75 mg PO QAM 07/15/23 08/01/23 insulin degludec 100 unit/mL (3 35 unit subcut HS 07/15/23 08/01/23 mL) subcutaneous pen (Tresiba FlexTouch U-100 insulin) Previous Rx's Medication Instructions Recorded clonazepam 0.5 mg tablet 0.5 mg PO BID PRN anxiety #0 tabs 03/28/21 furosemide 40 mg tablet 60 mg (1.5 x 40 mg) PO BID #120 07/22/22 tabs baclofen 10 mg tablet 10 mg PO BID PRN muscle spasm #30 03/11/23 tabs gabapentin 300 mg capsule 600 mg (2 x 300 mg) PO TID #30 caps 03/11/23 Results & Data (ED) Vital Signs Vital Signs - 24 hr 08/01/23 08:50 08/01/23 09:00 08/01/23 09:00 Temperature 36.5 C Temperature Source Temporal Artery Scan Pulse Rate 86 86 Pulse Rate [Apical] Pulse Rate from SpO2 Sensor 86 Pulse Rhythm Regular Respiratory Rate 20 15 Respiratory Effort / Characteristics Non-Labored Spontaneous Respiratory Depth Normal Blood Pressure 110/70 110/70 Blood Pressure [Right Arm] Blood Pressure Mean 83 80 Blood Pressure Mean [Right Arm] Pulse Oximetry 97 97 Oxygen Delivery Method Room Air Sepsis Recent Fever Within 48 Hours No Sepsis New/Unexplained Change in Mental Status No Sepsis Action Taken by Nursing No Action Required 08/01/23 09:03 08/01/23 09:30 08/01/23 11:56 Temperature Temperature Source Pulse Rate 88 90 Pulse Rate [Apical] 90 Pulse Rate from SpO2 Sensor 88 Pulse Rhythm Respiratory Rate 22 20 Respiratory Effort / Characteristics Respiratory Depth Blood Pressure Blood Pressure [Right Arm] 94/62 L Blood Pressure Mean Blood Pressure Mean [Right Arm] 72 Pulse Oximetry 93 94 Oxygen Delivery Method Room Air Sepsis Recent Fever Within 48 Hours Sepsis New/Unexplained Change in Mental Status Sepsis Action Taken by Nursing 08/01/23 11:57 Temperature Temperature Source Pulse Rate Pulse Rate [Apical] Pulse Rate from SpO2 Sensor Pulse Rhythm Respiratory Rate Respiratory Effort / Characteristics Respiratory Depth Blood Pressure Blood Pressure [Right Arm] Blood Pressure Mean Blood Pressure Mean [Right Arm] Pulse Oximetry 93 Oxygen Delivery Method Room Air Sepsis Recent Fever Within 48 Hours Sepsis New/Unexplained Change in Mental Status Sepsis Action Taken by [facility] Medications Current Medication List: was personally reviewed by me Laboratory Data Attestation: I reviewed the patient's lab results. 08/01/23 10:01 08/01/23 10:01 Lab Results 08/01/23 08/01/23 08/01/23 Range/Units 09:04 10:01 12:36 WBC 10.82 H (4.8-10.8) K/ul RBC 4.75 (4.20-5.40) M/uL Hgb 14.2 (12.0-16.0) g/dl Hct 43.4 (37.0-47.0) % MCV 91.4 (80.0-100.0) fL MCH 29.9 (25.0-34.0) pg MCHC 32.7 (32.0-36.0) g/dL RDW Std Deviation 46.8 H (36.4-46.3) fL RDW Coeff of Adolfo 13.8 (11.5-14.5) % Plt Count 285 (130-400) K/uL MPV 10.5 (9.4-12.4) fL Immature Gran % (Auto) 0.7 % Neut % (Auto) 70.2 % Lymph % (Auto) 18.3 % [place] % (Auto) 6.0 % Eos % (Auto) 4.2 % Baso % (Auto) 0.6 % Neut # (Auto) 7.59 H (1.40-6.50) K/uL Lymph # (Auto) 1.98 (1.20-3.40) K/uL [place] # (Auto) 0.65 H (0.11-0.59) K/uL Eos # (Auto) 0.45 (0.00-0.50) K/uL Baso # (Auto) 0.07 (0.00-0.20) K/uL Immature Gran # (Auto) 0.08 (0.01-0.20) K/uL PT 10.9 (9.0-12.0) Seconds INR 1.0 (0.9-1.1) APTT 25.6 (21.0-31.0) Seconds PTT Ratio 0.9 Sodium 136 (136-145) mmol/L Potassium 3.6 (3.5-5.1) mmol/L Chloride 94 L (98-107) mmol/L Carbon Dioxide 34 H (21-32) mmol/L Anion Gap 8 (3-11) BUN 39 H (6-23) mg/dl Creatinine 1.69 H (0.6-1.2) mg/dl Est Cr Clr Drug Dosing 44.0 ml/min Est GFR ( Amer) 35.5 ml/min Est GFR (Non-Af Amer) 30.7 ml/min BUN/Creatinine Ratio 23.1 H (10-20) Glucose 361 H* (70-99(Fasting)) mg/dl POC Glucose 386 H* 264 H (70-99) mg/dl Lactate 1.9 (0.4-2.0) mmol/L Calcium 9.5 (8.6-10.3) mg/dl Magnesium 1.6 L (1.7-2.4) mg/dl Total Bilirubin 0.4 (0.2-1.0) mg/dl AST 11 L (13-39) U/L ALT 11 (7-52) U/L Alkaline Phosphatase 123 H (34-104) U/L Troponin I High Sens 7.6 (0-14) pg/ml Total Protein 8.0 (6.0-8.3) gm/dl Albumin 4.1 (3.4-5.0) gm/dl Globulin 3.9 (2.5-4.0) gm/dl Albumin/Globulin Ratio 1.1 (0.9-2) TSH 0.229 L (0.300-4.500) uIu/ml Free T4 1.44 (0.61-1.60) ng/dl Urine Color Urine Appearance (Clear) Urine pH (4.5-7.5) Ur Specific [place] (1.000-1.030) Urine Protein (Negative) Urine Glucose (UA) (Negative) Urine Ketones (Negative) Urine Blood (Negative) Urine Nitrite (Negative) Urine Bilirubin (Negative) Urine Urobilinogen (Negative) Ur Leukocyte Esterase (Negative) 08/01/23 Range/Units Unknown WBC (4.8-10.8) K/ul RBC (4.20-5.40) M/uL Hgb (12.0-16.0) g/dl Hct (37.0-47.0) % MCV (80.0-100.0) fL MCH (25.0-34.0) pg MCHC (32.0-36.0) g/dL RDW Std Deviation (36.4-46.3) fL RDW Coeff of Adolfo (11.5-14.5) % Plt Count (130-400) K/uL MPV (9.4-12.4) fL Immature Gran % (Auto) % Neut % (Auto) % Lymph % (Auto) % [place] % (Auto) % Eos % (Auto) % Baso % (Auto) % Neut # (Auto) (1.40-6.50) K/uL Lymph # (Auto) (1.20-3.40) K/uL [place] # (Auto) (0.11-0.59) K/uL Eos # (Auto) (0.00-0.50) K/uL Baso # (Auto) (0.00-0.20) K/uL Immature Gran # (Auto) (0.01-0.20) K/uL PT (9.0-12.0) Seconds INR (0.9-1.1) APTT (21.0-31.0) Seconds PTT Ratio Sodium (136-145) mmol/L Potassium (3.5-5.1) mmol/L Chloride (98-107) mmol/L Carbon Dioxide (21-32) mmol/L Anion Gap (3-11) BUN (6-23) mg/dl Creatinine (0.6-1.2) mg/dl Est Cr Clr Drug Dosing ml/min Est GFR ( Amer) ml/min Est GFR (Non-Af Amer) ml/min BUN/Creatinine Ratio (10-20) Glucose (70-99(Fasting)) mg/dl POC Glucose (70-99) mg/dl Lactate (0.4-2.0) mmol/L Calcium (8.6-10.3) mg/dl Magnesium (1.7-2.4) mg/dl Total Bilirubin (0.2-1.0) mg/dl AST (13-39) U/L ALT (7-52) U/L Alkaline Phosphatase (34-104) U/L Troponin I High Sens (0-14) pg/ml Total Protein (6.0-8.3) gm/dl Albumin (3.4-5.0) gm/dl Globulin (2.5-4.0) gm/dl Albumin/Globulin Ratio (0.9-2) TSH (0.300-4.500) uIu/ml Free T4 (0.61-1.60) ng/dl Urine Color Yellow Urine Appearance Clear (Clear) Urine pH 6.0 (4.5-7.5) Ur Specific [place] 1.014 (1.000-1.030) Urine Protein Negative (Negative) Urine Glucose (UA) 2+ H (Negative) Urine Ketones Negative (Negative) Urine Blood Negative (Negative) Urine Nitrite Negative (Negative) Urine Bilirubin Negative (Negative) Urine Urobilinogen Negative (Negative) Ur Leukocyte Esterase Negative (Negative) Administered Medications Discontinued Medications Sodium Chloride (Nss) 1,000 mls @ 999 mls/hr IV .Q1H1M ROBERT Stop: 08/01/23 10:30 Last Infusion: 08/01/23 11:46 Dose: Infused Documented By: Admin: 08/01/23 09:42 Dose: 999 mls/hr Documented By: HS Sodium Chloride (Nss) 1,000 mls @ 999 mls/hr IV .Q1H1M ONE Stop: 08/01/23 11:50 Last Infusion: 08/01/23 12:31 Dose: Infused Documented By: Admin: 08/01/23 11:38 Dose: 999 mls/hr Documented By: ANGELO Magnesium Sulfate/Dextrose (Magnesium Sulfate / D5w) 1 gm in 100 mls @ 100 mls/hr IV NOW STA Stop: 08/01/23 12:09 Last Infusion: 08/01/23 12:38 Dose: Infused Documented By: Admin: 08/01/23 11:38 Dose: 100 mls/hr Documented By: ANGELO Imaging Data Radiologist's Impression: Chest X-Ray 08/01/23 09:30 SINGLE VIEW CHEST CLINICAL HISTORY: Generalized weakness. FINDINGS: An AP, portable, upright chest radiograph is compared to study dated 03/23/2023. Surgical clips are seen in the lower neck. The heart is enlarged and atherosclerotic calcification of the thoracic aorta. There is prominence of the pulmonary vasculature. Chronic interstitial thickening is similar to previous. There is bibasilar scarring/atelectasis. No airspace consolidation or large pleural effusion is identified. No pneumothorax is seen. The skeletal structures are osteopenic. The bony thorax is grossly intact. IMPRESSION: 1. Cardiomegaly with prominence of the pulmonary vasculature. Correlate clinically for evidence of mild fluid overload/congestive change. 2. Chronic interstitial changes are similar to previous. No airspace consolidation or large pleural effusion is identified. ACT 112: Negative or not required by law. Electronically signed by: Zachariah Borden M.D. 08/01/2023 10:52 AM Discharge Plan Visit Data Chief Complaint: Hyperglycemia Stated Complaint: illness ED Provider: Zachariah Gage Discharge Problem: Weakness, Acute dehydration, Acute hyperglycemia, Leukocytosis, Hypomagnesemia Patient Disposition: Admitted As Inpatient Condition: Fair Forms Stand Alone Forms: My [facility] Mobile Pulse Prescriptions Prescriptions: No Action levothyroxine 200 mcg Tablet 200 mcg PO QAM Rx Instructions: TOTAL DOSE 250 MCG--TAKES WITH 25 MCG TAB. omeprazole 20 mg Capsule,Delayed Release(Dr/Ec) 20 mg PO QAM insulin aspart U-100 [Novolog FlexPen U-100 Insulin] 100 unit/mL (3 mL) insulin pen 6 - 8 unit SUBCUT DIRECTED Patient Comments: takes 6 units with breakfast/lunch and 8 units with dinner dicyclomine 20 mg tablet 20 mg PO QID PRN (Reason: abdominal pain) levothyroxine 50 mcg tablet 50 mcg PO QAM Rx Instructions: TOTAL DOSE 250 MCG--TAKES WITH 200 MCG TAB. docusate sodium [Colace] 100 mg capsule 100 mg PO BID PRN (Reason: Constipation) meclizine 12.5 mg tablet 12.5 mg PO TID PRN (Reason: Dizziness) clonazepam 0.5 mg Tablet 0.5 mg PO BID PRN (Reason: anxiety) Qty: 0 0RF ropinirole 2 mg Tablet 2 mg PO HS potassium chloride 20 mEq tablet,ER particles/crystals 20 meq PO BID metformin 500 mg tablet extended release 24 hr 500 mg PO QAM furosemide 40 mg tablet 60 mg PO BID Qty: 120 0RF oxycodone 5 mg tablet 5 mg PO Q6H PRN (Reason: Pain) duloxetine 30 mg capsule,delayed release(DR/EC) 30 mg PO QAM Rx Instructions: TOTAL DOSE 90 MG--TAKES WITH 60 MG CAP. Mounjaro 2.5 mg/0.5 mL pen injector 2.5 mg SUBCUT WK Patient Comments: takes tue. morning insulin degludec [Tresiba FlexTouch U-100] 100 unit/mL (3 mL) insulin pen 35 unit SUBCUT HS atorvastatin 20 mg Tablet 20 mg PO QAM clopidogrel [Plavix] 75 mg Tablet 75 mg PO QAM aspirin [Aspir-81] 81 mg Tablet,Delayed Release (Dr/Ec) 81 mg PO QAM magnesium oxide 400 mg (241.3 mg magnesium) tablet 400 mg PO BID tramadol 50 mg tablet 50 mg PO TID PRN (Reason: Pain) trazodone 100 mg tablet 100 mg PO HS acetaminophen 500 mg Tablet 500 - 1,000 mg PO Q6H PRN (Reason: Pain) cholecalciferol (vitamin D3) [Vitamin D3] 25 mcg (1,000 unit) Capsule 25 mcg PO QAM Eliquis 5 mg Tablet 5 mg PO BID baclofen 10 mg Tablet 10 mg PO BID PRN (Reason: muscle spasm) Qty: 30 0RF gabapentin 300 mg capsule 600 mg PO TID Qty: 30 0RF duloxetine 60 mg capsule,delayed release(DR/EC) 60 mg PO QAM Rx Instructions: TOTAL DOSE 90 MG--TAKES WITH 30 MG CAP. Referrals Referrals: Galdino Andujar DO [Primary Care Provider] - Discharge Problem: Leukocytosis Qualifiers: Leukocytosis type: unspecified Qualified Code(s): D72.829 - Elevated white blood cell count, unspecified
[2023-08-01 10:34] LABS: Basophils # (auto) 0.07 K/uL (0.00-0.20); Basophils % (auto) 0.6 %; Eosinophils # (auto) 0.45 K/uL (0.00-0.50); Eosinophils % (auto) 4.2 %; Hematocrit (blood only) 43.4 % (37.0-47.0); Hemoglobin 14.2 g/dl (12.0-16.0); Immature Granulocytes # (auto) 0.08 K/uL (0.01-0.20); Immature Granulocytes % (auto) 0.7 %; Lymphocytes # (auto) 1.98 K/uL (1.20-3.40); Lymphocytes % (auto) 18.3 %; Mean Corpuscular Hemoglobin 29.9 pg (25.0-34.0); Mean Corpuscular Hgb Conc 32.7 g/dL (32.0-36.0); Mean Corpuscular Volume 91.4 fL (80.0-100.0); Mean Platelet Volume 10.5 fL (9.4-12.4); Monocytes # (auto) 0.65 K/uL (0.11-0.59); Neutrophils # (auto) 7.59 K/uL (1.40-6.50); Neutrophils % (auto) 70.2 %; Platelet Count 285 K/uL (130-400); RDW Coefficient of Variation 13.8 % (11.5-14.5); RDW Standard Deviation 46.8 fL (36.4-46.3); Red Blood Count 4.75 M/uL (4.20-5.40); White Blood Count 10.82 K/ul (4.8-10.8)
[2023-08-01 10:40] LABS: Appearance Urine Clear (Clear); Bilirubin Urine Negative (Negative); Blood Urine Negative (Negative); Color Urine Yellow; Glucose Urine UA 2+ (Negative); Ketones Urine Negative (Negative); Leukocyte Esterase Urine Negative (Negative); Nitrite Urine Negative (Negative); Protein Urine Negative (Negative); Specific Gravity Urine 1.014 (1.000-1.030); Urobilinogen Urine Negative (Negative)
[2023-08-01] MEDS ORDERED: SODIUM CHLORIDE 0.9% 1,000 ML IV ONE (10:50)
[2023-08-01 10:51] LABS: Albumin Globulin Ratio 1.1 (0.9-2); Albumin Level 4.1 gm/dl (3.4-5.0); BUN Creatinine Ratio 23.1 (10-20); Bilirubin,Total 0.4 mg/dl (0.2-1.0); Calcium 9.5 mg/dl (8.6-10.3); Est GFR (African American) 35.5 ml/min; Est GFR (Non-African American) 30.7 ml/min; Globulin 3.9 gm/dl (2.5-4.0); Magnesium 1.6 mg/dl (1.7-2.4); Potassium 3.6 mmol/L (3.5-5.1); Troponin I High Sensitivity 7.6 pg/ml (0-14)
--- NOTE | 2023-08-01 10:54 | XRay Report ---
SINGLE VIEW CHEST CLINICAL HISTORY: Generalized weakness. FINDINGS: An AP, portable, upright chest radiograph is compared to study dated 03/23/2023. Surgical cl ips are seen in the lower neck. The heart is enlarged and atherosclerotic calcification of the thorac ic aorta. There is prominence of the pulmonary vasculature. Chronic interstitial thickening is simila r to previous. There is bibasilar scarring/atelectasis. No airspace consolidation or large pleural ef fusion is identified. No pneumothorax is seen. The skeletal structures are osteopenic. The bony thora x is grossly intact. IMPRESSION: 1. Cardiomegaly with prominence of the pulmonary vasculature. Correlate clinically for evidence of mi ld fluid overload/congestive change. 2. Chronic interstitial changes are similar to previous. No airspace consolidation or large pleural e ffusion is identified. ACT 112: Negative or not required by law. Electronically signed by: Zachariah Borden M.D. 08/01/2023 10:52 AM
[2023-08-01 10:58] LABS: Partial Thromboplastin Ratio 0.9; Partial Thromboplastin Time 25.6 Seconds (21.0-31.0); Prothrombin Time 10.9 Seconds (9.0-12.0)
[2023-08-01 11:00] LABS: Thyroid Stimulating Hormone 0.229 uIu/ml (0.300-4.500)
[2023-08-01] MEDS ORDERED: MAGNESIUM SULFATE / D5W 1 GM/100 ML BAG IV STA (11:10)
[2023-08-01 11:36] LABS: T4 Free Thyroxine 1.44 ng/dl (0.61-1.60)
[2023-08-01] MEDS ORDERED: SODIUM CHLORIDE 0.9% 500 ML IV ONE (13:41)
[2023-08-01] MEDS ORDERED: GLUCOSE 10 TAB/TUBE PO PRN (14:56)
[2023-08-01] MEDS ORDERED: GLUCOSE 40% GEL 15 GM TUBE PO PRN (14:56)
[2023-08-01] MEDS ORDERED: CARBOHYDRATES FOR HYPOGLYCEMIA PO PRN (14:56)
[2023-08-01] MEDS ORDERED: ALUMINUM/MAGNESIUM SUSP 30 ML UDC PO PRN (14:56)
[2023-08-01] MEDS ORDERED: DEXTROSE 50% 50 ML SYRINGE IV PRN (14:56)
[2023-08-01] MEDS ORDERED: PHARMACY GLYCEMIC MGMT CONSULT PRN (14:56)
[2023-08-01] MEDS ORDERED: MAGNESIUM HYDROXIDE SUSP 30 ML UDC PO PRN (14:56)
[2023-08-01] MEDS ORDERED: GLUCAGON FOR INJ 1 MG VIAL SQ PRN (14:56)
[2023-08-01] MEDS ORDERED: POTASSIUM CHLORIDE CRTAB 20 MEQ TABCR PO STA (15:01)
[2023-08-01] MEDS ORDERED: MAGNESIUM SULFATE / D5W 1 GM/100 ML BAG IV ONE (15:01)
--- NOTE | 2023-08-01 15:26 | History & Physical Report ---
Date of Service August 01, 2023 Assessment & Plan (1) Weakness: Plan High blood glucose level Uncontrolled T2DM Generalized weakness Patient presenting from the outpatient surgery office due to high blood glucose, her Elective right carotid artery surgery was canceled today. Received 18 units of insulin at the outpatient office, her admitting blood glucose was above 500. Lactate and urinary ketones negative. Patient received 2.5 L of fluid in the ED. Blood glucose down to 264 at the time of my bedside exam. Likely secondary to 10 being held about 2 weeks ago prior to her elective surgery. Sliding scale insulin, hold oral meds, will hold further IV fluid due to slight congestive changes and chest x-ray Glycemic pharmacy consult. Patient will likely need close follow-up with endocrinology upon discharge. Monitor replete electrolytes. PT/OT. Patient lives alone at home, complaining of weakness and tiredness. CM to assist with DC planning. diabete educator consult. Congestive changes noted in the CXR: Could not appreciate crackles on exam, does not look volume overloaded. We will hold on further IV fluid resuscitation here. Patient reports taking her Lasix daily. Has as needed metolazone for increased weight gain. Denies any chest pain or increased shortness of breath. She uses 3 L oxygen at baseline for her chronic hypoxemic respiratory failure. June 2023 echo with EF of 55%. Leukocytosis: Leukocytes minimally elevated, Procalcitonin negative, denies any signs and symptoms of infection, will monitor off of antibiotic.Labs in a.m. Follow admitting blood culture. Urine analysis normal. Other chronic medical conditions: As mentioned in HPI. Continue with/resume home meds as and when able. DVT prophylaxis: Patient on Eliquis due to history of blood clot. Full code History of Present Illness Chief Complaint: Weakness, high blood sugar Primary Care Provider: Galdino Andujar DO 68-year-old lady with PMH of T2DM c/b peripheral angiopathy, lumbar radiculopathy, fibromyalgia, HTN, HLD, chronic hypoxemic respiratory failure on 3 L oxygen at baseline, ILD, ELISSA on CPAP 11, recurrent DVT, venous insufficiency, carotid artery stenosis x right, moderate obesity, GERD, CKD stage III, heparin-induced thrombocytopenia presented to the ED at referral of outpatient surgery office due to high blood glucose level. Patient reports her sugar has been higher since last 2 to 3 days, above 300+ yesterday, about 400+ today morning and over 500+ at outpatient surgery office today. She has right sided carotid artery surgery scheduled for today which was canceled due to her high blood glucose level. For preparation for surgery today, her Mounjaro was held 2 weeks ago per pt. Patient reports feeling weak, tired, lack of energy since last few days. Uses rollator at baseline. Denies fever/cough/sore throat/chest pain/palpitation/increasing shortness of breath. Patient reports baseline appetite, no changes in bowel or bladder habit. Patient does have generalized pain from history of fibromyalgia and neuropathy. Medications were reviewed with the patient at bedside. Full code Plan of care discussed with the patient, she voiced understanding and was agreeable to the plan of care. Allergies Allergy/AdvReac Type Severity Reaction Status Date / Time morphine Allergy Severe Swelling, Verified 08/01/23 05:43 "Violent reaction- almost " dapagliflozin [From Farxiga] Allergy Intermediate Yeast Verified 08/01/23 05:43 infections tetanus toxoid, adsorbed Allergy Intermediate Passed Verified 08/01/23 05:43 out, "got sick" as child bupropion [From Wellbutrin] AdvReac Intermediate Recurrent Verified 08/01/23 05:43 falls as per patient codeine AdvReac Intermediate Hallucinati Verified 08/01/23 05:43 ons empagliflozin AdvReac Intermediate Yeast Verified 08/01/23 05:43 [From Jardiance] infections heparin AdvReac Intermediate HIT, Verified 08/01/23 05:43 "Fluid in lungs" hydrocodone [From Vicodin] AdvReac Intermediate Drowsy Verified 08/01/23 05:43 Home Medications Medication Instructions Recorded Confirmed Type levothyroxine 200 mcg tablet 200 mcg PO QAM 06/09/18 08/01/23 History omeprazole 20 mg capsule,delayed 20 mg PO QAM 06/09/18 08/01/23 History release dicyclomine 20 mg tablet 20 mg PO QID PRN abdominal pain 03/27/21 08/01/23 History docusate sodium 100 mg capsule 100 mg PO BID PRN Constipation 03/27/21 08/01/23 History (Colace) insulin aspart U-100 100 unit/mL 6 - 8 unit subcut DIRECTED 03/27/21 08/01/23 History (3 mL) subcutaneous pen (Novolog FlexPen U-100 Insulin aspart) levothyroxine 50 mcg tablet 50 mcg PO QAM 03/27/21 08/01/23 History meclizine 12.5 mg tablet 12.5 mg PO TID PRN Dizziness 03/27/21 08/01/23 History clonazepam 0.5 mg tablet 0.5 mg PO BID PRN anxiety #0 tabs 03/28/21 08/01/23 Rx ropinirole 2 mg tablet 2 mg PO HS 09/20/21 08/01/23 History potassium chloride 20 mEq 20 meq PO BID 07/14/22 08/01/23 History tablet,extended release(part/cryst) metformin 500 mg tablet,extended 500 mg PO QAM 07/15/22 08/01/23 History release 24 hr furosemide 40 mg tablet 60 mg (1.5 x 40 mg) PO BID #120 07/22/22 08/01/23 Rx tabs magnesium oxide 400 mg (241.3 mg 400 mg PO BID 08/16/22 08/01/23 History magnesium) tablet acetaminophen 500 mg tablet 500 - 1,000 mg PO Q6H PRN Pain 03/05/23 08/01/23 History apixaban 5 mg tablet (Eliquis) 5 mg PO BID 03/05/23 08/01/23 History cholecalciferol (vitamin D3) 25 25 mcg PO QAM 03/05/23 08/01/23 History mcg (1,000 unit) capsule (Vitamin D3) tramadol 50 mg tablet 50 mg PO TID PRN Pain 03/05/23 08/01/23 History trazodone 100 mg tablet 100 mg PO HS 03/05/23 08/01/23 History baclofen 10 mg tablet 10 mg PO BID PRN muscle spasm #30 03/11/23 08/01/23 Rx tabs gabapentin 300 mg capsule 600 mg (2 x 300 mg) PO TID #30 caps 03/11/23 08/01/23 Rx duloxetine 60 mg capsule,delayed 60 mg PO QAM 03/23/23 08/01/23 History release duloxetine 30 mg capsule,delayed 30 mg PO QAM 05/25/23 08/01/23 History release oxycodone 5 mg tablet 5 mg PO Q6H PRN Pain 05/25/23 08/01/23 History tirzepatide 2.5 mg/0.5 mL 2.5 mg subcut WK 05/25/23 08/01/23 History subcutaneous pen injector (Mounjaro) aspirin 81 mg tablet,delayed 81 mg PO QAM 07/15/23 08/01/23 History release atorvastatin 20 mg tablet 20 mg PO QAM 07/15/23 08/01/23 History clopidogrel 75 mg tablet (Plavix) 75 mg PO QAM 07/15/23 08/01/23 History insulin degludec 100 unit/mL (3 35 unit subcut HS 07/15/23 08/01/23 History mL) subcutaneous pen (Tresiba FlexTouch U-100 insulin) Past Med/Surg History Medical History Mitral valve stenosis Echo 06/2023: Borderline mild mitral stenosis secondary to severe mitral annular calcification Chronic hypoxemic respiratory failure Cataract, bilateral Lumbago with sciatica Lower extremity pain, bilateral Neuropathy feet On home oxygen therapy 3L continuous CHF (congestive heart failure) Follows with Dr. Woodall Subclavian artery stenosis Cerebrovascular duplex study 06/2023: Retrograde flow in the right vertebral artery. 50-69% proximal right subclavian artery stenosis. Antegrade flow in the left vertebral artery. Normal flow in the left subclavian artery. Carotid stenosis, right Cerebrovascular duplex 07/11/23: 80-99% R ICA stenosis. No hemodynamically significant stenosis in the LICA. Diabetes mellitus, type II CKD (chronic kidney disease), stage III Follows with [facility] ELISSA on CPAP CPAP + 3L O2 (O2 is continuous) HTN (hypertension) HLD (hyperlipidemia) Morbid obesity HIT (heparin-induced thrombocytopenia) 2008, [facility] then life flight to [place] > "resolved" Depression with anxiety Hypothyroidism History of pulmonary embolism 2008 s/p zoraida filter GERD (gastroesophageal reflux disease) RLS (restless legs syndrome) History of DVT (deep vein thrombosis) 2008 (during ICU [place] admission/PNA) Presence of IVC filter 2008 Fibromyalgia Surgical History Family history of reaction to anesthesia Brother/niece- PONV Brother- "wakes up violent" History of arthroscopy left ankle History of cholecystectomy History of colon resection secondary to R colon perforation, resected treated with colostomy and eventual reversal in 2008, Dr. Lerma History of colonoscopy History of colostomy reversal History of incisional hernia repair History of thyroidectomy, total 2010 History of tooth extraction History of total right knee replacement History of tracheostomy 06/2009 (per [facility] records), secondary to acute respiratory failure in setting of PNA, reversed a few months later Nausea and vomiting after administration of anesthetic agent Family History Father , age 74 Lung cancer Mother , age 45 Cirrhosis Social History Smoking Status: Former smoker Tobacco Type: Cigarettes Second Hand Exposure: Yes (as a child); Do You Dip or Chew Tobacco: No; Hx Alcohol Use: No Hx Substance Use: No Preferred Language: Guatemalan Communication Ability: Effective Corporate Manager Required: No Beliefs That Will Affect Care: None marital status: Single Current Living Situation: Alone Current Living Situation Comment: apartment How many Children do You have: 0 Feels Safe at Home: Yes Assistive Devices: Glasses, Oxygen - Continuous and Walker Review of Systems Review of Systems: negative otherwise mentioned in HPI. Physical Exam Physical Exam: GENERAL: Alert and oriented x3. NAD, on 3L NC, appears weak/tired. Obesity class III. HEENT: No pallor, no icterus. Pupils equal, round and reactive to light. Oral mucosa moist. NECK: No JVD, no neck masses. HEART: S1 and S2 heard. Regular rate and rhythm. No murmur, no gallop. RESPIRATORY SYSTEM: Normal AP diameter. No accessory muscle use. decreased breath sounds likely 2/2 morbid obesity. ABDOMEN: Soft, bowel sounds present, nontender, no distention. CENTRAL NERVOUS SYSTEM: No facial droop. Speech is clear. Obeys simple commands. Moves extremities. EXTREMITIES: No edema, chronic skin changes noted. Results & Data Results & Data Vital Signs (Past 12 Hours) Vital Signs Temp Pulse Pulse Resp BP BP Pulse Ox 08/01/23 11:57 93 08/01/23 11:56 90 20 94/62 L 94 08/01/23 09:30 90 22 93 08/01/23 09:03 88 08/01/23 09:00 110/70 08/01/23 09:00 86 15 97 08/01/23 08:50 36.5 C 86 20 110/70 97 O2 Del Method 08/01/23 11:57 Room Air 08/01/23 11:56 Room Air 08/01/23 09:30 08/01/23 09:03 08/01/23 09:00 08/01/23 09:00 08/01/23 08:50 Room Air Code Status & VTE Plan VTE Prophylaxis Plan VTE Prophylaxis will be ordered: Yes
[2023-08-01] MEDS ORDERED: MECLIZINE 12.5 MG TAB PO PRN (17:24)
[2023-08-01] MEDS ORDERED: BACLOFEN 10 MG TAB PO PRN (17:24)
[2023-08-01] MEDS: ACETAMINOPHEN 325 MG TAB PO PRN (17:39)
[2023-08-01] MEDS: INSULIN ASPART PER UNIT CHARGE SC SCH ×2 (18:49→22:21)
[2023-08-01] MEDS ORDERED: LANTUS PER UNIT CHARGE SQ SCH (21:00)
[2023-08-01] MEDS: traMADol HCL 50 MG TABLET PO PRN (22:24)
[2023-08-01] MEDS: clonazePAM 0.5 MG TAB PO PRN (22:25)
[2023-08-01] MEDS: traZODone HCL 100 MG TAB PO SCH (22:25)
[2023-08-01] MEDS: rOPINIRole HCL 2 MG TABLET PO SCH (22:25)
[2023-08-01] MEDS: MAGNESIUM OXIDE 400 MG TAB PO SCH (22:26)
[2023-08-01] MEDS: GABAPENTIN 300 MG CAP PO SCH (22:26)
[2023-08-01] MEDS: APIXABAN 5 MG TABLET PO SCH (22:26)
[2023-08-02] MEDS: LEVOTHYROXINE SODIUM 200 MCG TABLET PO SCH (05:26)
[2023-08-02] MEDS: LEVOTHYROXINE SODIUM 50 MCG TABLET PO SCH (05:26)
[2023-08-02] MEDS: ACETAMINOPHEN 325 MG TAB PO PRN (05:28)
[2023-08-02 06:41] LABS: Hematocrit (blood only) 38.6 % (37.0-47.0); Hemoglobin 12.4 g/dl (12.0-16.0); Mean Corpuscular Hemoglobin 29.8 pg (25.0-34.0); Mean Corpuscular Hgb Conc 32.1 g/dL (32.0-36.0); Mean Corpuscular Volume 92.8 fL (80.0-100.0); Mean Platelet Volume 10.4 fL (9.4-12.4); Platelet Count 254 K/uL (130-400); RDW Coefficient of Variation 13.9 % (11.5-14.5); RDW Standard Deviation 47.6 fL (36.4-46.3); Red Blood Count 4.16 M/uL (4.20-5.40)
[2023-08-02 07:29] LABS: BUN Creatinine Ratio 20.9 (10-20); Calcium 8.5 mg/dl (8.6-10.3); Creatinine Clr Calc Pharmacy 51.3 ml/min; Est GFR (African American) 41.7 ml/min; Magnesium 1.8 mg/dl (1.7-2.4); Phosphorus 3.5 mg/dl (2.5-4.9)
[2023-08-02 07:34] LABS: Estimated Average Glucose 235 mg/dl; Hemoglobin A1C 9.8 % (4.5-5.6)
[2023-08-02] MEDS: APIXABAN 5 MG TABLET PO SCH ×2 (08:35→21:45)
[2023-08-02] MEDS: GABAPENTIN 300 MG CAP PO SCH ×3 (08:35→21:45)
[2023-08-02] MEDS: ASPIRIN 81 MG ECTAB PO SCH (08:36)
[2023-08-02] MEDS: DICYCLOMINE HCL 20 MG TAB PO PRN (08:36)
[2023-08-02] MEDS: PANTOprazole 40 MG TAB PO SCH (08:36)
[2023-08-02] MEDS: DULoxetine HCL 60 MG CAP PO SCH (08:36)
[2023-08-02] MEDS: MAGNESIUM OXIDE 400 MG TAB PO SCH ×2 (08:36→21:44)
[2023-08-02] MEDS: DULoxetine HCL 30 MG CAP PO SCH (08:36)
[2023-08-02] MEDS: CLOPIDOGREL BISULFATE 75 MG TAB PO SCH (08:36)
[2023-08-02] MEDS: ATORVASTATIN 20 MG TAB PO SCH (08:36)
[2023-08-02] MEDS: CHOLECALCIFEROL 1,000 UNITS 25 MCG TAB PO SCH (08:36)
[2023-08-02] MEDS ORDERED: LANTUS PER UNIT CHARGE SQ SCH ×2 (09:00→21:00)
[2023-08-02] MEDS: clonazePAM 0.5 MG TAB PO PRN ×2 (09:23→21:44)
[2023-08-02] MEDS: INSULIN ASPART PER UNIT CHARGE SC SCH ×4 (09:23→20:38)
--- NOTE | 2023-08-02 13:34 | Electrocardiogram Report ---
Test Reason : Blood Pressure : / mmHG Vent. Rate : 085 BPM Atrial Rate : 085 BPM P-R Int : 176 ms QRS Dur : 078 ms QT Int : 372 ms P-R-T Axes : 052 008 033 degrees QTc Int : 442 ms Normal sinus rhythm Normal ECG When compared with ECG of 25-MAY-2023 20:12, No significant change was found Confirmed by Bright David ([id number]) on 08/02/2023 1:33:39 PM Referred By: REFERRED SELF Confirmed By:Bright David
--- NOTE | 2023-08-02 14:44 | Pharmacy Report ---
Pharmacy Glycemic Short Note 2 - Date of Service August 02, 2023 - Glycemic Short BSG Results (Last 24 hours): 08/01/23 08/01/23 08/01/23 17:42 20:32 22:04 Glucose POC Glucose 292 H 271 H 230 H 08/02/23 08/02/23 08/02/23 01:16 05:38 08:28 Glucose 291 H POC Glucose 225 H 294 H 08/02/23 08/02/23 12:19 12:21 Glucose POC Glucose 358 H* 331 H* OUTPATIENT ANTIDIABETIC REGIMEN: * Per diabetes note (07/26/23) * Tresiba 40 units SC HS * Novolog 6 units SC with breakfast/lunch * Novolog 8 units SC with dinner * Novolog CF 25 if BSG greater than 150 mg/dL before meals * Metformin ER 500mg QAM * Mounjaro 2.5mg SC QWK (Increase to 5mg on 07/27) * HbA1c 9.8% (08/02/23) ASSESSMENT: * Stephanie is a 68 YOF admitted with hyperglycemia following a cancelled procedure due to hyperglycemia with a history of T2DM. Pharmacy was consulted for glycemic management while inpatient. * She was initiated on Lantus 20 units BID and Novolog at weight based stress of 1 * Fasting BSG this AM elevated significantly increased Lantus dose to 40 units QAM based on previous admissions data and tightened Novolog to weight based stress of 2. Allowed for additional Lantus at bedtime based on bedtime BSG * Lunch time BSG significantly elevated, tightened Novolog parameters further to CF 15 and CR 5 which worked well for her on previous admissions * Plan for an IV bolus at dinner if still elevated, added overnight Novolog checks as well. PLAN FOR INPATIENT GLYCEMIC CONTROL: * Hold outpatient oral diabetes medications * Basal insulin * Lantus 40 units SQ QAM * Lantus 0-20 units HS (see eMAR for additional details) * Bolus insulin * NovoLog per scale ACHS or Q6hrs while NPO * Goal Range: Low 110 mg/dL - High 140 mg/dL * Correction Factor: 15 mg/dL/unit * Nutritional / Prandial insulin per carb ratio of 1 unit per 5 grams CHO consumed
--- NOTE | 2023-08-02 15:32 | Hospitalist Progress Note ---
Date of Service August 02, 2023 Assessment & Plan (1) Weakness: Plan per admitting service notes with addendum: Hyperglycemia Uncontrolled T2DM Generalized weakness Likely secondary to Mounjaro being held about 2 weeks ago prior to her elective surgery. Patient presenting from the outpatient surgery office due to high blood glucose, her Elective right carotid artery surgery was canceled today. Received 18 units of insulin at the outpatient office, her admitting blood glucose was above 500. Lactate and urinary ketones negative. 08/02 A1c 9.8 Pharmacy glycemic consult on board community health educator also consulted We will need to increase insulin Lantus and insulin sliding scale as Mounjaro will need to be held until patient's elective carotid artery stroke No signs of infection at this time Hypertension -Monitor Chronic hypoxic respiratory failure, on 3 L of oxygen Interstitial lung disease -Stable Obstructive sleep apnea Recurrent DVT -Eliquis 5 mg twice daily History of heparin-induced thrombocytopenia DVT prophylaxis: Patient on Eliquis due to history of blood clot. Full code Disposition Pending lives at home Admission and Anticipated Discharge Date Admission Date: August 01, 2023 Subjective Follow-up for hyperglycemia, etc. Seen resting in chair, comfortable, not in distress States that she feels tired, but otherwise fine no chest pain, dyspnea, palpitations, dizziness No fevers or chills, abdominal pain, problems with urination No other new symptoms Review of Systems Review of Systems: all noted and negative except for above Physical Exam Physical Exam: General- oriented x 3, not in distress, speaks in sentences with no effort or accessory muscle use Eyes- anicteric Neck- no JVD Lungs- clear breath sounds bilaterally, no rales/wheezes Heart- normal rate, regular rhythm; no murmurs Abdomen- normal bowel sounds, nondistended, soft, nontender Extremities- no pretibial edema, no calf tenderness Neuro- alert, oriented x 3; no gross focal neurologic deficits Skin- warm & dry Results & Data Results & Data Vital Signs (Past 12 Hours) Vital Signs Temp Pulse Pulse Resp BP BP Pulse Ox 08/02/23 15:09 81 08/02/23 11:30 36.8 C 78 20 146/66 H 98 08/02/23 08:45 08/02/23 07:54 36.5 C 85 20 152/65 H 95 08/02/23 07:30 80 O2 Del Method O2 Flow Rate 08/02/23 15:09 11/07/23 11:30 Nasal Cannula 3 08/02/23 08:45 Nasal Cannula 3 08/02/23 07:54 Nasal Cannula 3 08/02/23 07:30 all noted and reviewed including below
[2023-08-02] MEDS: rOPINIRole HCL 2 MG TABLET PO SCH (21:44)
[2023-08-02] MEDS: traZODone HCL 100 MG TAB PO SCH (21:44)
[2023-08-02] MEDS: traMADol HCL 50 MG TABLET PO PRN (21:44)
[2023-08-03] MEDS: INSULIN ASPART PER UNIT CHARGE SC SCH ×4 (00:29→13:17)
[2023-08-03] MEDS: LEVOTHYROXINE SODIUM 50 MCG TABLET PO SCH (05:29)
[2023-08-03] MEDS: LEVOTHYROXINE SODIUM 200 MCG TABLET PO SCH (05:29)
[2023-08-03] MEDS ORDERED: LANTUS PER UNIT CHARGE SQ SCH (09:00)
[2023-08-03] MEDS: CLOPIDOGREL BISULFATE 75 MG TAB PO SCH (09:36)
[2023-08-03] MEDS: ATORVASTATIN 20 MG TAB PO SCH (09:36)
[2023-08-03] MEDS: DULoxetine HCL 60 MG CAP PO SCH (09:36)
[2023-08-03] MEDS: ASPIRIN 81 MG ECTAB PO SCH (09:36)
[2023-08-03] MEDS: PANTOprazole 40 MG TAB PO SCH (09:36)
[2023-08-03] MEDS: DICYCLOMINE HCL 20 MG TAB PO PRN (09:37)
[2023-08-03] MEDS: GABAPENTIN 300 MG CAP PO SCH ×2 (09:37→13:18)
[2023-08-03] MEDS: MAGNESIUM OXIDE 400 MG TAB PO SCH (09:37)
[2023-08-03] MEDS: APIXABAN 5 MG TABLET PO SCH (09:37)
[2023-08-03] MEDS: DULoxetine HCL 30 MG CAP PO SCH (09:37)
[2023-08-03] MEDS: CHOLECALCIFEROL 1,000 UNITS 25 MCG TAB PO SCH (09:37)
[2023-08-03 09:40] LABS: Lyme Ab IgG w/WB Rflx Negative (Negative)
[2023-08-03 09:44] LABS: Lyme Ab IgM w/WB Rflx Equivocal (Negative)
[2023-08-03] MEDS: ACETAMINOPHEN 325 MG TAB PO PRN (09:50)
--- NOTE | 2023-08-03 14:31 | Discharge Summary ---
Date of Service August 03, 2023 Admission HPI Per Admitting Provider 68-year-old lady with PMH of T2DM c/b peripheral angiopathy, lumbar radiculopathy, fibromyalgia, HTN, HLD, chronic hypoxemic respiratory failure on 3 L oxygen at baseline, ILD, ELISSA on CPAP 11, recurrent DVT, venous i nsufficiency, carotid artery stenosis x right, moderate obesity, GERD, CKD stage III, heparin-induced thrombocytopenia presented to the ED at referral of outpatient surgery office due to high blood glucose level. Patient reports her sugar has been higher since last 2 to 3 days, above 300+ yesterday, about 400+ today morning and over 500+ at outpatient surgery office today. She has right sided carotid artery surgery scheduled for today which was canceled due to her high blood glucose level. For preparation for surgery today, her Mounjaro was held 2 weeks ago per pt. Patient reports feeling weak, tired, lack of energy since last few days. Uses rollator at baseline. Denies fever/cough/sore throat/chest pain/palpitation/increasing shortness of breath. Patient reports baseline appetite, no changes in bowel or bladder habit. Patient does have generalized pain from history of fibromyalgia and neuropathy. Medications were reviewed with the patient at bedside. Full code Plan of care discussed with the patient, she voiced understanding and was agreeable to the plan of care. Admission Exam Per Admitting Provider GENERAL: Alert and oriented x3. NAD, on 3L NC, appears weak/tired. Obesity class III. HEENT: No pallor, no icterus. Pupils equal, round and reactive to light. Oral mucosa moist. NECK: No JVD, no neck masses. HEART: S1 and S2 heard. Regular rate and rhythm. No murmur, no gallop. RESPIRATORY SYSTEM: Normal AP diameter. No accessory muscle use. decreased br eath sounds likely 2/2 morbid obesity. ABDOMEN: Soft, bowel sounds present, nontender, no distention. CENTRAL NERVOUS SYSTEM: No facial droop. Speech is clear. Obeys simple commands. Moves extremities. EXTREMITIES: No edema, chronic skin changes noted. Principal Diagnosis High blood glucose level Uncontrolled T2DM Generalized weakness Discharge Exam Constitutional: Alert, oriented x3; morbidly obese. Respiratory: normal respiratory effort, lungs clear to auscultation, no wheeze, rales, rhonchi. Normal insp/exp effort, no accessory muscle use Cardiovascular: RRR, no murmur, no edema Vessels: no JVD or carotid bruit Chest: normal inspection of chest Abdomen: normal bowel sounds, soft, nontender, no hepatosplenomegaly Musculoskeletal: no cyanosis or clubbing, extremities motor strength 5/5 Skin: no rashes, warm and dry normal turgor Neurologic: PERRL, EOMI, accommodation nl, no face palsy, no dysarthria CN's II- XI intact bilaterally and moves all extremities Psychiatric: A+Ox3, euthymic affect Discharge Data Allergies Allergy/AdvReac Type Severity Reaction Status Date / Time morphine Allergy Severe Swelling, Verified 08/01/23 16:47 "Violent reaction- almost " dapagliflozin [From Farxiga] Allergy Intermediate Yeast Verified 08/01/23 16:47 infections tetanus toxoid, adsorbed Allergy Intermediate Passed Verified 08/01/23 16:47 out, "got sick" as child bupropion [From Wellbutrin] AdvReac Intermediate Recurrent Verified 08/01/23 16:47 falls as per patient codeine AdvReac Intermediate Hallucinati Verified 08/01/23 16:47 ons empagliflozin AdvReac Intermediate Yeast Verified 08/01/23 16:47 [From Jardiance] infections heparin AdvReac Intermediate HIT, Verified 08/01/23 16:47 "Fluid in lungs" hydrocodone [From Vicodin] AdvReac Intermediate Drowsy Verified 08/01/23 16:47 Hospital Course (1) Weakness: Plan Hyperglycemia Uncontrolled T2DM Generalized weakness Likely secondary to Mounjaro being held about 2 weeks ago prior to her elective surgery. Patient presenting from the outpatient surgery office due to high blood glucose, her Elective right carotid artery surgery was canceled on day of admission Received 18 units of insulin at the outpatient office, her admitting blood glucose was above 500. Lactate and urinary ketones negative. At discharge, patient was placed on following regimen. 1) Lantus 40 units at at bedtime 2) NovoLog 8 units for breakfast and lunch and 10 units for dinner. Patient was also given following instructions; Your blood glucose level might decreased after you initiate Mounjaro; please decrease the dose of insulin based on following instructions to prevent hypo glycemic events: Please measure your fasting blood glucose every morning. If your blood glucose is still less than 80 Mg per DL; decrease the dose of degludec by 2 units gradually. If your fasting blood glucose is greater than 140 for 2 consecutive days; you can increase degludec by 2 units. Also check your postprandial sugar; if it is less than 80mg/dl, decrease the dose of NovoLog by 2 units. If it is greater than 180; you can increase NovoLog by 2 units. Lyme IgM Equivocal-Lyme IgM was equivocal. Patient given 10 days of doxycycline. Follow-up with PCP for final results. Please note the above document was generated using voice recognition software. It may contain grammatical, syntax or spelling errors. Any formal questions or concerns about the content, text or information contained within the body of this dictation should be directly addressed to the provider for clarification Total Time Total Time Spent Total Time Spent (In Minutes): 45 Total Time Includes: Examination of the Patient, Discharge Planning, Medication Reconciliation, Communication With Other Providers and Other Discharge Plan Discharge Items Patient Disposition: Home - Self-Care Reason For Visit: HIGH GLUCOSE LEVEL, WEAKNESS Discharge Diagnosis: Hypoglycemia Equivocal Lyme test Condition on Discharge: Fair Activity: Resume your previous activity Non-emergency contact: Primary Care Provider Call non-emergency contact if: you have any medication questions Follow-up/Referrals: Galdino Andujar DO [Primary Care Provider] - (Date & Time 08/05/2023 1:00 PM Provider Smitha Napier [address] [place] [address] [place] [address] Date & Time 08/05/2023 1:40 PM Provider Galdino Andujar DO [address] ) Diet: Regular Addtl Attending Provider Instructions: You were admitted to the hospital due to high glucose level. Following changes have been made to your insulin regimen: 1) take Lantus 40 units at at bedtime 2) take NovoLog 8 units for breakfast and lunch and 10 units for dinner. Your blood glucose level might decreased after you initiate Mounjaro; please decrease the dose of insulin based on following instructions to prevent hypo glycemic events: Please measure your fasting blood glucose every morning. If your blood glucose is still less than 80 Mg per DL; decrease the dose of degludec by 2 units gradually. If your fasting blood glucose is greater than 140 for 2 consecutive days; you can increase degludec by 2 units. Also check your postprandial sugar; if it is less than 80mg/dl, decrease the dose of NovoLog by 2 units. If it is greater than 180; you can increase NovoLog by 2 units. Pending Studies at Discharge: No Stand-Alone Forms: My [facility], Smoking Cessation Medications and DC Order Prescriptions: New doxycycline hyclate 100 mg capsule 100 mg PO BID 10 Days Qty: 20 0RF Continued levothyroxine 200 mcg Tablet 200 mcg PO QAM Rx Instructions: TOTAL DOSE 250 MCG--TAKE WITH 25 MCG TAB. omeprazole 20 mg Capsule,Delayed Release(Dr/Ec) 20 mg PO QAM dicyclomine 20 mg tablet 20 mg PO QID PRN (Reason: abdominal pain) levothyroxine 50 mcg tablet 50 mcg PO QAM Rx Instructions: TOTAL DOSE 250 MCG--TAKE WITH 200 MCG TAB. docusate sodium [Colace] 100 mg capsule 100 mg PO BID PRN (Reason: Constipation) meclizine 12.5 mg tablet 12.5 mg PO TID PRN (Reason: Dizziness) clonazepam 0.5 mg Tablet 0.5 mg PO BID PRN (Reason: anxiety) Qty: 0 0RF ropinirole 2 mg Tablet 2 mg PO HS potassium chloride 20 mEq tablet,ER particles/crystals 20 meq PO BID metformin 500 mg tablet extended release 24 hr 500 mg PO QAM furosemide 40 mg tablet 60 mg PO BID Qty: 120 0RF oxycodone 5 mg tablet 5 mg PO Q6H PRN (Reason: Pain) duloxetine 30 mg capsule,delayed release(DR/EC) 30 mg PO QAM Rx Instructions: TOTAL DOSE 90 MG--TAKE WITH 60 MG CAP. Mounjaro 2.5 mg/0.5 mL pen injector 2.5 mg SUBCUT WK Patient Comments: takes tue. morning Rx Instructions: TAKE THIS MED EVERY TUESDAY insulin degludec [Tresiba FlexTouch U-100] 100 unit/mL (3 mL) insulin pen 40 unit SUBCUT HS atorvastatin 20 mg Tablet 20 mg PO QAM clopidogrel [Plavix] 75 mg Tablet 75 mg PO QAM aspirin 81 mg Tablet,Delayed Release (Dr/Ec) 81 mg PO QAM magnesium oxide 400 mg (241.3 mg magnesium) tablet 400 mg PO BID tramadol 50 mg tablet 50 mg PO TID PRN (Reason: Pain) trazodone 100 mg tablet 100 mg PO HS acetaminophen 500 mg Tablet 500 - 1,000 mg PO Q6H PRN (Reason: Pain) cholecalciferol (vitamin D3) [Vitamin D3] 25 mcg (1,000 unit) Capsule 25 mcg PO QAM Eliquis 5 mg Tablet 5 mg PO BID baclofen 10 mg Tablet 10 mg PO BID PRN (Reason: muscle spasm) Qty: 30 0RF gabapentin 300 mg capsule 600 mg PO TID Qty: 30 0RF duloxetine 60 mg capsule,delayed release(DR/EC) 60 mg PO QAM Rx Instructions: TOTAL DOSE 90 MG--TAKE WITH 30 MG CAP. Changed insulin aspart U-100 [Novolog FlexPen U-100 Insulin] 100 unit/mL (3 mL) insulin pen 8 unit SUBCUT BIDM Qty: 15 0RF Rx Instructions: TAKE 8 UNITS WITH BREAKFAST AND LUNCH. insulin aspart U-100 [Novolog FlexPen U-100 Insulin] 100 unit/mL (3 mL) Insulin Pen 10 sliding scale dose SUBCUT .EVENING MEAL Qty: 15 0RF Discharge Orders: Discharge Order (Routine); Ordered 08/03/23 Ordered By: Main Carmichael Admission Data Admit Date/Time: 08/02/23 17:42 Attending Provider: Main Carmichael Admit Provider: Juan Gr Primary Care Provider: Galdino Andujar Other Providers: Iliana Castellanos Robin A. Other Interventions: Discharge Summary Assessment (RN) Last Done: 08/03/23 13:52
[2023-08-08 17:36] LABS: 18KDIGG Band NON-REACTIVE; 23KDIGG Band NON-REACTIVE; 23KDIGM Band NON-REACTIVE; 28KDIGG Band NON-REACTIVE; 30KDIGG Band NON-REACTIVE; 39KDIGG Band NON-REACTIVE; 39KDIGM Band REACTIVE; 41KDIGG Band REACTIVE; 41KDIGM Band NON-REACTIVE; 45KDIGG Band NON-REACTIVE; 58KDIGG Band REACTIVE; 66KDIGG Band NON-REACTIVE; 93KDIGG Band NON-REACTIVE; Lyme Antibodies, WB IgG NEGATIVE (NEGATIVE); Lyme Antibodies, WB IgM NEGATIVE (NEGATIVE)
== END 2023-08-03 15:43 | disposition home or self-care (01) | DRG 638 ==
LOC: EDACCT# → ED 08:49 → EDINP 08:49 → SUATTDRO 14:57 → 2N 17:14 → SUATTDRO 08-02 17:42

== ENCOUNTER 2023-09-06 05:59 | Inpatient (IN) ==
--- NOTE | 2023-08-31 09:44 | Anesthesiology Consultation ---
Date of Service August 31, 2023 Assessment & Plan Chart Review Chart Review: Acceptable Risk for Surgery and Patient NOT seen in Pre Admission Testing Consults Requested none Patient previously canceled due to glucose >500. Recent bloodwork reveals glucose 90s-250s. Patient should have glucose checked morning of surgery. Appropriate to proceed. History Surgery Operation Date: 09/06/23 09:20 Proposed Procedures p Right Carotid Angiogram, Possible Right Transcarotid Artery Revascularization - Mirza Tang MD Height/Weight Height: 5 ft 5 in Weight: 132.903 kg Allergies Allergy/AdvReac Type Severity Reaction Status Date / Time morphine Allergy Severe Swelling, Verified 08/31/23 09:07 "Violent reaction- almost " dapagliflozin [From Farxiga] Allergy Intermediate Yeast Verified 08/31/23 09:07 infections tetanus toxoid, adsorbed Allergy Intermediate Passed Verified 08/31/23 09:07 out, "got sick" as child bupropion [From Wellbutrin] AdvReac Intermediate Recurrent Verified 08/31/23 09:07 falls as per patient codeine AdvReac Intermediate Hallucinati Verified 08/31/23 09:07 ons empagliflozin AdvReac Intermediate Yeast Verified 08/31/23 09:07 [From Jardiance] infections heparin AdvReac Intermediate HIT, Verified 08/31/23 09:07 "Fluid in lungs" hydrocodone [From Vicodin] AdvReac Intermediate Drowsy Verified 08/31/23 09:07 Medications Home Medications Medication Instructions Recorded Confirmed Last Taken levothyroxine 200 mcg tablet 200 mcg PO QAM 06/09/18 08/31/23 08/01/23 03:45 omeprazole 20 mg capsule,delayed 20 mg PO QAM 06/09/18 08/31/23 08/01/23 03:45 release dicyclomine 20 mg tablet 20 mg PO QID PRN abdominal pain 03/27/21 08/31/23 Unknown docusate sodium 100 mg capsule 100 mg PO BID PRN Constipation 03/27/21 08/31/23 07/31/23 10:00 (Colace) levothyroxine 50 mcg tablet 50 mcg PO QAM 03/27/21 08/31/23 08/01/23 03:45 meclizine 12.5 mg tablet 12.5 mg PO TID PRN Dizziness 03/27/21 08/31/23 Unknown clonazepam 0.5 mg tablet 0.5 mg PO BID PRN anxiety #0 tabs 03/28/21 08/31/23 08/01/23 03:45 ropinirole 2 mg tablet 2 mg PO HS 09/20/21 08/31/23 07/31/23 20:00 potassium chloride 20 mEq 20 meq PO BID 07/14/22 08/31/23 07/31/23 20:00 tablet,extended release(part/cryst) metformin 500 mg tablet,extended 500 mg PO QAM 07/15/22 08/31/23 07/29/23 10:00 release 24 hr furosemide 40 mg tablet 60 mg (1.5 x 40 mg) PO BID #120 07/22/22 08/31/23 07/31/23 20:00 tabs magnesium oxide 400 mg (241.3 mg 400 mg PO BID 08/16/22 08/31/23 07/31/23 20:00 magnesium) tablet acetaminophen 500 mg tablet 500 - 1,000 mg PO Q6H PRN Pain 03/05/23 08/31/23 Un known apixaban 5 mg tablet (Eliquis) 5 mg PO BID 03/05/23 08/31/23 07/29/23 10:00 cholecalciferol (vitamin D3) 25 25 mcg PO QAM 03/05/23 08/31/23 07/31/23 10:00 mcg (1,000 unit) capsule (Vitamin D3) tramadol 50 mg tablet 50 mg PO TID PRN Pain 03/05/23 08/31/23 07/31/23 20:00 trazodone 100 mg tablet 100 mg PO HS 03/05/23 08/31/23 07/31/23 20:00 baclofen 10 mg tablet 10 mg PO BID PRN muscle spasm #30 03/11/23 08/31/23 Unknown tabs gabapentin 300 mg capsule 600 mg (2 x 300 mg) PO TID #30 caps 03/11/23 08/31/23 08/01/23 03:45 duloxetine 60 mg capsule,delayed 60 mg PO QAM 03/23/23 08/31/23 08/01/23 03:45 release duloxetine 30 mg capsule,delayed 30 mg PO QAM 05/25/23 08/31/23 08/01/23 03:45 release oxycodone 5 mg tablet 5 mg PO Q6H PRN Pain 05/25/23 08/31/23 Unknown aspirin 81 mg tablet,delayed 81 mg PO QAM 07/15/23 08/31/23 08/01/23 03:45 release atorvastatin 20 mg tablet 20 mg PO QAM 07/15/23 08/31/23 08/01/23 03:45 clopidogrel 75 mg tablet (Plavix) 75 mg PO QAM 07/15/23 08/31/23 07/30/23 10:00 insulin degludec 100 unit/mL (3 45 unit subcut HS 07/15/23 08/31/23 07/31/23 19:00 mL) subcutaneous pen (Tresiba FlexTouch U-100 insulin) insulin aspart U-100 100 unit/mL 8 unit (0.08 mL) subcut BIDM #15 mL 08/03/23 08/31/23 07/31/23 19:00 (3 mL) subcutaneous pen (Novolog FlexPen U-100 Insulin aspart) insulin aspart U-100 100 unit/mL 10 sliding scale dose subcut 08/03/23 08/31/23 Unknown (3 mL) subcutaneous pen (Novolog .EVENING MEAL #15 mL FlexPen U-100 Insulin aspart) tirzepatide 5 mg/0.5 mL 5 mg subcut WK 08/31/23 08/31/23 Unknown subcutaneous pen injector (Kevan) Past Medical History Medical History Hypomagnesemia Mitral valve stenosis Echo 06/2023: Borderline mild mitral stenosis secondary to severe mitral annular calcification Chronic hypoxemic respiratory failure Cataract, bilateral Lumbago with sciatica Lower extremity pain, bilateral Neuropathy feet On home oxygen therapy 3L continuous CHF (congestive heart failure) Follows with Dr. Woodall Subclavian artery stenosis Cerebrovascular duplex study 06/2023: Retrograde flow in the right vertebral artery. 50-69% proximal right subclavian artery stenosis. Antegrade flow in the left vertebral artery. Normal flow in the left subclavian artery. Carotid stenosis, right Cerebrovascular duplex 07/11/23: 80-99% R ICA stenosis. No hemodynamically significant stenosis in the LICA. Diabetes mellitus, type II CKD (chronic kidney disease), stage III Follows with [facility] ELISSA on CPAP CPAP + 3L O2 (O2 is continuous) HTN (hypertension) HLD (hyperlipidemia) Morbid obesity HIT (heparin-induced thrombocytopenia) 2009, [facility] then life flight to [place] > "resolved" Depression with anxiety Hypothyroidism History of pulmonary embolism 2008 s/p zoraida filter GERD (gastroesophageal reflux disease) RLS (restless legs syndrome) History of DVT (deep vein thrombosis) 2008 (during ICU [place] admission/PNA) Presence of IVC filter 2008 Fibromyalgia Past Family History Family History Father , age 74 Lung cancer Mother , age 45 Cirrhosis Past Surgical History Surgical History Family history of reaction to anesthesia Brother/niece- PONV Brother- "wakes up violent" History of colostomy reversal History of tooth extraction History of arthroscopy left ankle History of incisional hernia repair Nausea and vomiting after administration of anesthetic agent History of colonoscopy History of cholecystectomy History of total right knee replacement History of tracheostomy 06/2009 (per [facility] records), secondary to acute respiratory failure in setting of PNA, reversed a few months later History of thyroidectomy, total 2010 History of colon resection secondary to R colon perforation, resected treated with colostomy and eventual reversal in 2008, Dr. Lerma Social History Smoking Status: Former smoker tobacco type: cigarettes Smoking cigarettes per day: 1997 Do You Dip or Chew Tobacco: No Hx Alcohol Use: No Alcohol type: wine alcohol intake frequency: holidays/special occasions only substance use type: does not use Testing Laboratory Results Laboratory Tests 08/01/23 08/02/23 08/02/23 10:01 05:38 05:38 WBC 9.90 Hgb 12.4 Hct 38.6 Plt Count 254 PT 10.9 INR 1.0 APTT 25.6 Sodium 137 Potassium 4.0 Chloride 100 Carbon Dioxide 31 BUN 31 H Creatinine 1.48 H Glucose 291 H Hemoglobin A1c 9.8 H TSH 0.229 L Free T4 1.44 Electrocardiogram Date: 08/01/23 Findings: + NSR @ Echocardiogram Date: 07/14/23 EF: 55-59 LV Function: normal Valvular Disease: + MS (mild)
[2023-09-06] MEDS ORDERED: SODIUM CHLORIDE 0.9% 1000ML IV SCH (06:00)
[2023-09-06 06:55] LABS: BUN Creatinine Ratio 13.3 (10-20); Calcium 9.5 mg/dl (8.6-10.3); Creatinine Clr Calc Pharmacy 38.1 ml/min; Est GFR (African American) 29.7 ml/min; Est GFR (Non-African American) 25.6 ml/min
[2023-09-06] MEDS ORDERED: DEXAMETHASONE SOD INJ 4 MG/ML VIAL ONE (06:59)
[2023-09-06] MEDS ORDERED: ROCURONIUM BROMIDE 10 MG/ML 5 ML VIAL IV ONE (06:59)
[2023-09-06] MEDS ORDERED: PROPOFOL IV EMULSION 10 MG/ML 20 ML VIAL IV ONE (06:59)
[2023-09-06] MEDS ORDERED: LIDOCAINE 2% 2 ML VIAL/AMP(20MG/ML) INFIL ONE (06:59)
[2023-09-06] MEDS ORDERED: ONDANSETRON INJ 2 MG/ML 2 ML VIAL ONE ×2 (06:59→14:56)
[2023-09-06] MEDS ORDERED: PHENYLEPHRINE HCL 25 MG/250 ML NSS IV ONE (07:03)
[2023-09-06] MEDS ORDERED: NITROGLYCERIN/D5W 100 MCG/ML BTL ONE (07:03)
[2023-09-06] MEDS ORDERED: SUGAMMADEX SODIUM 200 MG/2 ML VIAL IV ONE (07:05)
[2023-09-06] MEDS ORDERED: fentaNYL citrate PF 100 MCG/2 ML VIAL ONE ×2 (07:05→14:43)
[2023-09-06] MEDS ORDERED: MIDAZOLAM HCL 1 MG/ML 2ML VIAL ONE (07:05)
[2023-09-06] MEDS ORDERED: GLYCOPYRROLATE 0.2 MG/ML VIAL ONE (07:14)
[2023-09-06] MEDS ORDERED: HEPARIN SOD (PORCINE) 1000 UNIT/ML ONE (07:16)
--- NOTE | 2023-09-06 07:32 | History & Physical Report ---
Date of Service September 06, 2023 Assessment & Plan (1) Carotid stenosis, right: Plan: When patient was seen in our office 6 months ago, her ultrasound had demonstrated similar velocities. Due to concern for near occlusion, we did have the patient undergo an MRA for further evaluation, which appeared to have a degree of stenosis of just over 50%. The images for the MRA were difficult to view, the patient was advised to return in 6 months for reevaluation with fermin floyd. This follow-up ultrasound results are nearly identical to previous, and due to concern for significant risk of CVA, we recommend that she undergo a right carotid artery diagnostic angio, with intention to simultaneously perform TCAR if the degree of stenosis is verified. The procedure risks benefits and alternatives were discussed at length with the patient by myself at Dr. Tang's request. Her brother was present with her as well. Patient expresses understanding and agreement to proceed. Accommodations will be made regarding her decreased renal function, as well as her heparin allergy. She will stop her Eliquis for 2 days prior to the procedure. She will begin taking statin medication, aspirin, and Plavix which we sent to the pharmacy for her today. We will also request cardiac clearance from Dr. Rey Woodall. Patient is agreeable to this plan. She is advised to call here with any other questions. History of Present Illness Chief Complaint: Right internal carotid artery stenoss Primary Care Provider: Galdino Andujar DO Ms. Camp is a middle-aged female who presents to Dr. Tang's vascular surgery clinic today for a follow-up appointment regarding her history of carotid stenosis. Patient states that she occasionally suffers from some dizziness or vertigo, and unfortunately did have a fall not that long ago. Otherwise she denies any symptoms of cerebrovascular insufficiency including amaurosis, unilateral extremity weakness numbness or tingling, difficulty speaking or swallowing, facial droop, sudden onset confusion, other complaints. Her carotid ultrasound performed prior to today's appointment continues to demonstrate 80 to 99% stenosis in the right ICA, with velocities similar to her last ultrasound here 6 months ago, with peak systolic velocity of 480 cm/s with an end-diastolic velocity of 140 cm/s, and an ICA/CCA ratio of 6.4. Allergies Allergy/AdvReac Type Severity Reaction Status Date / Time morphine Allergy Severe Swelling, Verified 09/06/23 06:26 "Violent reaction- almost " dapagliflozin [From Farxiga] Allergy Intermediate Yeast Verified 09/06/23 06:26 infections tetanus toxoid, adsorbed Allergy Intermediate Passed Verified 09/06/23 06:26 out, "got sick" as child bupropion [From Wellbutrin] AdvReac Intermediate Recurrent Verified 09/06/23 06:26 falls as per patient codeine AdvReac Intermediate Hallucinati Verified 09/06/23 06:26 ons empagliflozin AdvReac Intermediate Yeast Verified 09/06/23 06:26 [From Jardiance] infections heparin AdvReac Intermediate HIT, Verified 09/06/23 06:26 "Fluid in lungs" hydrocodone [From Vicodin] AdvReac Intermediate Drowsy Verified 09/06/23 06:26 Home Medications Medication Instructions Recorded Confirmed Type levothyroxine 200 mcg tablet 200 mcg PO QAM 06/09/18 09/06/23 History omeprazole 20 mg capsule,delayed 20 mg PO QAM 06/09/18 09/06/23 History release dicyclomine 20 mg tablet 20 mg PO QID PRN abdominal pain 03/27/21 09/06/23 History docusate sodium 100 mg capsule 100 mg PO BID PRN Constipation 03/27/21 09/06/23 History (Colace) levothyroxine 50 mcg tablet 50 mcg PO QAM 03/27/21 09/06/23 History meclizine 12.5 mg tablet 12.5 mg PO TID PRN Dizziness 03/27/21 09/06/23 History clonazepam 0.5 mg tablet 0.5 mg PO BID PRN anxiety #0 tabs 03/28/21 09/06/23 Rx ropinirole 2 mg tablet 2 mg PO HS 09/20/21 09/06/23 History potassium chloride 20 mEq 20 meq PO BID 07/14/22 09/06/23 History tablet,extended release(part/cryst) metformin 500 mg tablet,extended 500 mg PO QAM 07/15/22 09/06/23 History release 24 hr furosemide 40 mg tablet 60 mg (1.5 x 40 mg) PO BID #120 07/22/22 09/06/23 Rx tabs magnesium oxide 400 mg (241.3 mg 400 mg PO BID 08/16/22 09/06/23 History magnesium) tablet acetaminophen 500 mg tablet 500 - 1,000 mg PO Q6H PRN Pain 03/05/23 09/06/23 History apixaban 5 mg tablet (Eliquis) 5 mg PO BID 03/05/23 09/06/23 History cholecalciferol (vitamin D3) 25 25 mcg PO QAM 03/05/23 09/06/23 History mcg (1,000 unit) capsule (Vitamin D3) tramadol 50 mg tablet 50 mg PO TID PRN Pain 03/05/23 09/06/23 History trazodone 100 mg tablet 100 mg PO HS 03/05/23 09/06/23 History baclofen 10 mg tablet 10 mg PO BID PRN muscle spasm #30 03/11/23 09/06/23 Rx tabs gabapentin 300 mg capsule 600 mg (2 x 300 mg) PO TID #30 caps 03/11/23 09/06/23 Rx duloxetine 60 mg capsule,delayed 60 mg PO QAM 03/23/23 09/06/23 History release duloxetine 30 mg capsule,delayed 30 mg PO QAM 05/25/23 09/06/23 History release oxycodone 5 mg tablet 5 mg PO Q6H PRN Pain 05/25/23 09/06/23 History aspirin 81 mg tablet,delayed 81 mg PO QAM 07/15/23 09/06/23 History release atorvastatin 20 mg tablet 20 mg PO QAM 07/15/23 09/06/23 History clopidogrel 75 mg tablet (Plavix) 75 mg PO QAM 07/15/23 09/06/23 History insulin degludec 100 unit/mL (3 45 unit subcut HS 07/15/23 09/06/23 History mL) subcutaneous pen (Tresiba FlexTouch U-100 insulin) insulin aspart U-100 100 unit/mL 8 unit (0.08 mL) subcut BIDM #15 mL 08/03/23 09/06/23 Rx (3 mL) subcutaneous pen (Novolog FlexPen U-100 Insulin aspart) insulin aspart U-100 100 unit/mL 10 sliding scale dose subcut 08/03/23 09/06/23 Rx (3 mL) subcutaneous pen (Novolog .EVENING MEAL #15 mL FlexPen U-100 Insulin aspart) tirzepatide 5 mg/0.5 mL 5 mg subcut WK 08/31/23 09/06/23 History subcutaneous pen injector (Kevan) Past Med/Surg History Medical History Hypomagnesemia Mitral valve stenosis Echo 06/2023: Borderline mild mitral stenosis secondary to severe mitral annular calcification Chronic hypoxemic respiratory failure Cataract, bilateral Lumbago with sciatica Lower extremity pain, bilateral Neuropathy feet On home oxygen therapy 3L continuous CHF (congestive heart failure) Follows with Dr. Woodall Subclavian artery stenosis Cerebrovascular duplex study 06/2023: Retrograde flow in the right vertebral artery. 50-69% proximal right subclavian artery stenosis. Antegrade flow in the left vertebral artery. Normal flow in the left subclavian artery. Carotid stenosis, right Cerebrovascular duplex 07/11/23: 80-99% R ICA stenosis. No hemodynamically significant stenosis in the LICA. Diabetes mellitus, type II CKD (chronic kidney disease), stage III Follows with [facility] ELISSA on CPAP CPAP + 3L O2 (O2 is continuous) HTN (hypertension) HLD (hyperlipidemia) Morbid obesity HIT (heparin-induced thrombocytopenia) 2009, [facility] then life flight to [place] > "resolved" Depression with anxiety Hypothyroidism History of pulmonary embolism 2008 s/p zoraida filter GERD (gastroesophageal reflux disease) RLS (restless legs syndrome) History of DVT (deep vein thrombosis) 2008 (during ICU [place] admission/PNA) Presence of IVC filter 2008 Fibromyalgia Surgical History Family history of reaction to anesthesia Brother/niece- PONV Brother- "wakes up violent" History of colostomy reversal History of tooth extraction History of arthroscopy left ankle History of incisional hernia repair Nausea and vomiting after administration of anesthetic agent History of colonoscopy History of cholecystectomy History of total right knee replacement History of tracheostomy 06/2009 (per [facility] records), secondary to acute respiratory failure in setting of PNA, reversed a few months later History of thyroidectomy, total 2010 History of colon resection secondary to R colon perforation, resected treated with colostomy and eventual reversal in 2008, Dr. Lerma Family History Father , age 74 Lung cancer Mother , age 45 Cirrhosis Social History Smoking Status: Former smoker Tobacco Type: Cigarettes Cigarettes Per Day: 1996; Second Hand Exposure: Yes (very little in the past); Do You Dip or Chew Tobacco: No; Hx Alcohol Use: No Preferred Language: Kinyarwanda Communication Ability: Effective State Pilot Required: No Beliefs That Will Affect Care: None marital status: Single Current Living Situation: Alone Current Living Situation Comment: apartment How many Children do You have: 0 Feels Safe at Home: Yes Safety Concerns: Feels Safe At This Time Assistive Devices: CPAP, Glasses, Oxygen - Continuous and Walker Assistive Devices Comment: reading glasses Review of Systems All systems reviewed & are unremarkable except as noted in HPI & below Physical Exam Physical Exam: Constitutional: In general patient is an obese and mildly chronically ill- appearing middle-aged female in no distress. She is alert and oriented without any focal neurological deficits. She ambulates with a walker. She does have oxygen on via nasal cannula at 3 L/min. She states this has been chronic for her. She does not have carotid bruit. Her heart is regular, her lungs are clear but significantly decreased. Her abdomen is soft nontender with normoactive bowel sounds in all 4 quadrants. Lower extremities a pulses are +1. Results & Data Vital Signs (Past 12 Hours) Vital Signs Temp Pulse Resp BP BP Pulse Ox O2 Del Method 09/06/23 06:33 Nasal Cannula, CPAP 09/06/23 06:33 36.7 C 82 18 151/77 H 101/72 95 Nasal Cannula, CPAP O2 Flow Rate 09/06/23 06:33 3 09/06/23 06:33
--- NOTE | 2023-09-06 07:32 | History & Physical Bridge Note ---
Date of Service September 06, 2023 History & Physical Bridge Note I have examined the patient, reviewed the History & Physical and in the interval since the performance of the History & Physical I have noted the following changes of clinical significance: no changes noted
[2023-09-06] MEDS ORDERED: GELATIN SPONGE SZ 100 ONE (07:38)
[2023-09-06] MEDS ORDERED: BUPIVACAINE/EPINEPHRINE 0.5% MPF 1:200,000 30 ML VIAL ONE (07:38)
[2023-09-06] MEDS ORDERED: ceFAZolin 330 MG/ML 1 GM VIAL ONE (07:38)
[2023-09-06] MEDS ORDERED: THROMBIN FOR SOLN 20000 UNIT KIT ONE (07:39)
[2023-09-06] MEDS ORDERED: [UNRECOGNIZED DRUG - REMARK] IV ONE (08:00)
[2023-09-06] MEDS ORDERED: ARGATROBAN IV SCH (08:00)
[2023-09-06] MEDS ORDERED: SODIUM CHLORIDE IV SCH (08:00)
[2023-09-06] MEDS ORDERED: [UNRECOGNIZED DRUG - OTHER] IV SCH (08:00)
--- OUTSIDE RECORDS SUMMARY | 2023-09-06 08:05 | External Medical Summary | Summary of Care ---
Author Name Unknown Organization [facility] Address [address] [place] [place] [place] [address] Phone [phone] Care Team Providers Care Outreach Analyst Name Role Phone Galdino Andujar DO Primary Care Provider [phone] Reason for Visit * Reason Onset Date Comments [facility]: Maintenance 09/05/2023 Encounter Details Date Type Department Care Team (Late st Contact Info) Description 09/05/2023 Telephone [facility], [facility] [address] [place] [id number] [facility], Nurse [address] [place] [address] [facility]: Maintenance Allergies Active Allergy Reactions Criticality Noted Date Comments Bupropion High 12/26/2021 Other [...] as of this encounter (statuses as of 09/05/2023) Medications Medication Sig Dispensed Refills Start Date End Date Status ONETOUCH DELICA LANCETS 33G MISC Check blood sugars 3-4 times daily 180 Each 5 08/01/2018 Active oxygen GASIndications:ELISSA (obstructive sleep apnea) Use 3 L/min(Oxygen) as directed continuous. 0 11/28/2019 Active CPAP every night at bedtime. 0 Active Dicyclomine HCl 20 MG Oral Tablet (Bentyl)Indications :Irritable bowel syndrome, unspecified type Take 1 Tablet (20 mg) by mouth 4 times a day as needed for Cramping. 180 Tablet 3 08/25/2022 Active Meclizine HCl 12.5 MG Oral Tablet (Antivert)Indicatio ns:Vertigo Take 1 Tablet (12.5 mg) by mouth 3 times a day as needed for Dizziness. 30 Tablet 1 08/25/2022 Active Potassium Chloride Ayleen ER 20 MEQ Oral Tablet Extended ReleaseIndications: Benign hypertensive heart and kidney disease with diastolic CHF, NYHA class 1 and CKD stage 3 ([facility]),Chronic diastolic congestive heart failure ([facility]) TAKE 1 TABLET BY MOUTH IN THE MORNING AND AT BEDTIME 60 Tablet 5 03/16/2023 Active Acetaminophen 500 MG Oral Tablet (Tylenol) Take 2 Tablets by mouth in the morning and 2 Tablets at noon and 2 Tablets before bedtime. 100 Tablet 0 03/18/2023 Active DIURETIC TITRATION PLAN If no improvement on day 3, contact heart failure managing provider. 1 Each 0 03/18/2023 Active Docusate Sodium 100 MG Oral Capsule (Colace) Take 1 Capsule by mouth in the morning and 1 Capsule before bedtime. 0 04/14/2023 Active DULoxetine HCl 60 MG Oral Capsule Delayed Release Particles (Cymbalta) Take 1 Capsule by mouth in the morning. Take with 30mg cap to equal 90mg daily. 30 Capsule 5 04/22/2023 Active NovoLOG FlexPen 100 UNIT/ML Subcutaneous Solution Pen-injector (insulin aspart)Indications: Type 2 diabetes mellitus with hemoglobin A1c goal of 7.0%-8.0% ([facility]) Inject 8 units with breakfast and 8units lunch and 10 units with dinner + sliding scale 1 units for every 25 units BG > 150. 150 mL 3 05/16/2023 Active metFORMIN HCl ER 500 MG Oral Tablet Extended Release 24 Hour (Glucophage XR)Indications:Type 2 diabetes mellitus with hemoglobin A1c goal of less than 8.0% ([facility]) TAKE 1 TABLET BY MOUTH ONCE DAILY IN THE MORNING 30 Tablet 5 05/22/2023 Active Furosemide 40 MG Oral Tablet (Lasix)Indications: Chronic diastolic congestive heart failure (HCC) TAKE 1 AND 1/2 TABLETS BY MOUTH IN THE MORNING AND AT BEDTIME 84 Tablet 5 05/20/2023 Active Cholecalciferol 25 MCG (1000 UT) Oral Capsule TAKE 1 TABLET BY MOUTH ONCE DAILY IN THE MORNING 30 Capsule 05/22/2023 Active DULoxetine HCl 30 MG Oral Capsule Delayed Release Particles (Cymbalta)Indicatio ns:Fibromyalgia,Pete or depressive disorder, recurrent, moderate (HCC) TAKE 1 CAPSULE BY MOUTH ONCE DAILY IN THE MORNING 30 Capsule 5 05/23/2023 Active OneTouch Verio In Vitro Strip (Glucose Blood)Indications:H ypoglycemia,Type 2 diabetes mellitus with stage 3b chronic kidney disease, with long-term current use of insulin (HCC) Use up to 4 times a day E11.9 in case of dexcom failure 100 Strip 11 05/31/2023 Active Dexcom G7 Sensor Use as directed. (From [employer]) 0 06/01/2023 Active Levothyroxine Sodium 200 MCG Oral Tablet (Levoxyl)Indication s:Postsurgical hypothyroidism TAKE 1 TABLET BY MOUTH ONCE DAILY IN THE MORNING 30 Tablet 5 06/16/2023 Active oxyCODONE HCl 5 MG Oral Tablet (Oxy IR)Indications:Lumb ar radiculopathy Take 1 Tablet by mouth every 6 hours as needed for Pain, Severe. 45 Tablet 0 07/08/2023 Active traMADol HCl 50 MG Oral Tablet (Ultram)Indications :Lumbar radiculopathy,Prima ry osteoarthritis of left knee Take 1 Tablet by mouth every 8 hours as needed for Pain, Severe. 90 Tablet 0 07/08/2023 Active Eliquis 5 MG Oral Tablet (Apixaban) TAKE 1 TABLET BY MOUTH IN THE MORNING AND AT BEDTIME 60 Tablet 5 07/12/2023 Active Magnesium Oxide 400 MG Oral TabletIndications: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, NYHA class 1 and CKD stage 3 (HCC),Chronic diastolic congestive heart failure (HCC) TAKE 1 TABLET BY MOUTH IN THE MORNING AND AT BEDTIME 60 Tablet 5 07/12/2023 Active Levothyroxine Sodium 50 MCG Oral Tablet (Levoxyl)Indication s:Hyperparathyroidi sm, secondary renal (HCC) Take 1 Tablet by mouth daily first thing in the morning. Take with Levothyroxine 200 mcg dose 30 Tablet 5 07/12/2023 Active Gabapentin 300 MG Oral Capsule (Neurontin)Indicati ons:Fibromyalgia TAKE 2 CAPSULES BY MOUTH IN THE MORNING, NOON AND BEDTIME] 168 Capsule 5 07/12/2023 Active Omeprazole 20 MG Oral Capsule Delayed Release (PriLOSEC)Indicatio ns:Gastroesophageal reflux disease with esophagitis without hemorrhage TAKE 1 CAPSULE BY MOUTH ONCE DAILY IN THE MORNING 30 Capsule 3 07/12/2023 Active Mounjaro 5 MG/0.5ML Subcutaneous Solution Pen-injector (Tirzepatide) Inject 5 mg under the skin once a week. 2 mL 11 07/14/2023 4 Active BD Pen Needle Short U/F 31G X 8 MM (Insulin Pen Needle) use five times daily 500 Each 3 07/20/2023 Active Baclofen 10 MG Oral Tablet (Lioresal) Take 1 Tablet by mouth 2 times a day as needed for Muscle spasms. 60 Tablet 5 07/20/2023 Active Plavix 75 MG Oral Tablet Take 1 Tablet by mouth daily. 0 07/11/2023 Active Aspirin 81 MG Oral Tablet Delayed Release Take 1 Tablet by mouth in the morning. 0 Active Tresiba FlexTouch 100 UNIT/ML Subcutaneous Solution Pen-injector (Insulin Degludec)Indication s:Type 2 diabetes mellitus with hemoglobin A1c goal of 7.0%-8.0% ([facility]) INJECT 50 UNITS UNDER THE SKIN IN THE EVENING 60 mL 3 08/04/2023 Active Additional Information Patient taking differently: INJECT 45 UNITS UNDER THE SKIN IN THE EVENING, Reported on 08/05/2023 Atorvastatin Calcium 20 MG Oral Tablet (Lipitor) Take 1 Tablet by mouth in the morning. Prescribed by Carmen Waggoner PA-C. 0 Active Ondansetron HCl 4 MG Oral Tablet (Zofran) Take 1 Tablet by mouth every 6 hours as needed for Nausea. 0 Active clonazePAM 0.5 MG Oral Tablet (KlonoPIN)Indicatio ns:Restless legs syndrome,Anxiety state TAKE 1 TABLET BY MOUTH IN THE MORNING AND AT BEDTIME 60 Tablet 0 08/11/2023 Active Senna-Time S 8.6-50 MG Oral Tablet (senna-docusate) TAKE 1 TABLET BY MOUTH IN THE MORNING AND AT BEDTIME 60 Tablet 5 08/15/2023 Active traZODone HCl 100 MG Oral Tablet (Desyrel)Indication s:Primary insomnia TAKE 1 TABLET BY MOUTH AT BEDTIME 30 Tablet 5 08/15/2023 Active rOPINIRole HCl 2 MG Oral Tablet (Requip)Indications :Restless legs syndrome Take 1 Tablet by mouth at bedtime. 30 Tablet 5 08/20/2023 Active documented as of this encounter (statuses as of 09/05/2023) Active Problems Problem Noted Date Diagnosed Date Body mass index (BMI) of 45.0 to 49.9 in adult 1 10/08/2022 Overview: Per Obesity protocol - Per Obesity Taxonomy ICD-10 update of inactive term DM peripheral angiopathy 07/13/2023 Last Assessment & Plan: Now followed by vascular, reports upcoming carotid surgery at [facility]. She states she has rx for atorvastatin and plavix to spanish moss picker at pharmacy. Type 2 diabetes mellitus wit h stage 3b chronic kidney disease, with long-term current use of insulin 09/29/2022 Last Assessment & Plan: "RED FLAG" Diabetic symptoms: Other: none Goal HgbA1c <7 Diabetic Complications Vascular (examples: PVD, PAD, CAD, CVA) Renal (example: CKD, Proteinuria, Dialysis) Medication Regimen Metformin Basal/Long Acting Insulin Bolus/Short Acting Insulin GLP-1 Agonist (ex: Victoza, Trulicity, Ozempic) DM Secondary Prevention Routine Podiatry Care Additional Comments Last hgba1c 03/05/23--7.1 Statin intolerant Following with MTM Anxiety state 09/29/2022 Sacroiliitis, not elsewhere classified Last Assessment & Plan: Has been having more back pain as of recently. Taking tramadol with minimal relief. Finished a course of steroids. No longer taking gabapentin due to other medication interactions. -has an appointment with her pain doctor next week -will also discuss pain control with her PCP next week ILD (interstitial lung disease) 08/11/2022 Last Assessment & Plan: Followed by pulm Stable today Moderate episode of recurrent major depressive d isorder 08/11/2022 Last Assessment & Plan: She continues duloxetine. Sertraline also in pill packs but not in Epic list--d/c by pcp. See phone note, will taper off and monitor. Primary osteoarthritis of both knees 08/11/2022 Last Assessment & Plan: Declines PT, reports it causes too much pain. Following with orthopedics Chronic kidney disease, stage 3b 07/05/2022 Overview: Per CKD protocol Encounter for long-term (current) use of other m edications 01/07/2022 Overview: Dr Andujar Type 2 diabetes mellitus wit h hemoglobin A1c goal of less than 8.0% [...] Tresiba DM Secondary Prevention Recurrent deep vein thrombos is (DVT) of both lower extremities 01/07/2022 Last Assessment & Plan: Continue Eliquis Chronic hypoxemic respiratory failure 01/07/2022 Last Assessment & Plan: At baseline. -continue O2 3 L at all times. 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 Stable. -continue Eliquis -likely no Wili or beta-faviola due to hypotension. Statin intolerance Carotid artery stenosis, asymptomatic, right 03/2022 Last Assessment & Plan: MRI neck this coming week F/u scheduled with Dr. Tang Spinal stenosis of lumbar re gion without neurogenic claudication 07/15/2020 Last Assessment & Plan: Reports injection did not help pain. Using tramadol and tylenol with relief. Will use oxycodone for severe pain. Continues duloxetine. Primary osteoarthritis of left knee 11/20/2019 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/2019 Vasculitis 11/07/2019 Hypertensive heart and kidne y disease with chronic diastolic congestive heart failure and stage 3b chronic kidney disease 05/14/2019 Last Assessment & Plan: "RED FLAG" HF Symptoms: Leg Swelling (Examples: "I can't wear certain socks or shoes", "My pants feel tight") Abdominal Bloating (Examples: "I can't wear certain pants", "My belly feels hard", "I look ") Medication Regimen: Beta Faviola Therapy: No beta-faviola secondary to --unknown WILI Inhibitor/ARB Therapy: No WILI/ARB/ARNI secondary to: --unknown Diuretic therapy: Lasix Self - Management Plan Add metolazone (Zaroxolyn) 2.5-5mg for 1 days. If using a potassium supplement, double the dose of the supplement will be given on the day of and on the day after the metolazone Exacerbation Plan BMP Pro-BNP Additional Comments: Stable today Lumbar radiculopathy 09/27/2018 Last Assessment & Plan: Upcoming appt with pain mgmt Currently using tramadol with tylenol q 8 hours Continues duloxetine--dose to be lowered in future d/t starting sertraline. Baclofen to use prn. Reports she is using ibuprofen prn severe pain "as last resort" since it does help. Use with caution d/t CKD--defer to pcp Controlled substance agreement signed 07/14/2017 Gastroesophageal reflux disease with esophagitis 03/04/2017 Last Assessment & Plan: Continue omeprazole Restless legs syndrome 03/25/2016 Last Assessment & Plan: Continue Requip Fibromyalgia 02/02/2016 Last Assessment & Plan: Continue tramadol Abnormality of gait 02/02/2016 Last Assessment & Plan: Home PT to start [place] filter in place 08/19/2014 History of pulmonary embolus (PE) 07/16/2014 Last Assessment & Plan: Continue Eliquis Statin intolerance 07/16/2014 Essential hypertension with goal blood pressure less than 140/90 02/22/2014 Last Assessment & Plan: BP stable -continue diuretics Venous insufficiency 02/07/2013 ELISSA (obstructive sleep apnea) 09/16/2011 Overview: CPAP 11 cwp Mild, AHI 11.3 but with significant nocturnal hypoxemia Dicks Last Assessment & Plan: Continue CPAP Postsurgical hypothyroidism 06/16/2011 Last Assessment & Plan: TSH 1.1 in 11/18 -continue Synthroid Dyslipidemia 09/04/2009 Overview: Per Lipid Taxonomy. Last Assessment & Plan: Planning to start atorvastatin, rx evidently given by vascular, has to spanish moss picker rx documented as of this encounter (statuses as of 09/05/2023) Resolved Problems Problem Noted Date Diagnosed Date Resolved Date Food insecurity 03/07/2023 04/07/2023 Overview: Per [facility] Protocol Food insecurity 11/08/2022 12/08/2022 Overview: Per [facility] Protocol Type 2 diabetes mellitus wit h stage 3b chronic kidney disease 01/07/2022 06/21/2023 Type 2 diabetes mellitus wit h diabetic chronic kidney disease 12/31/2021 07/27/2022 Last Assessment & Plan: Last hgba1c 7.6. 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 11/01/2022 Acute deep vein thrombosis ( DVT) of proximal vein of lower extremity, unspecified laterality 12/03/2021 03/12/2022 Hypotension 12/19/2020 01/07/2022 Uncontrolled type 2 diabetes mellitus with stage 4 chronic kidney disease, with long-term current use of insulin 01/07/2020 020 Overview: Per CKD protocol Chronic respiratory failure with hypoxia 11/07/2019 12/19/2020 Other atherosclerosis of [place] arteries of extremities, left leg 02/26/2019 11/20/2019 Impetigo 09/27/2018 05/14/2019 Mild episode of recurrent ma janae depressive disorder 08/26/2018 08/30/2022 Last Assessment & Plan: Sx controlled with duloxetine, nortriptyline Thoracic back pain 07/25/2018 Overview: Acute. Vaginal karmen 07/13/2018 08/26/2018 Hypervolemia 07/13/2018 08/26/2018 Chronic diastolic congestive heart failure 06/12/2018 03/20/2023 Heparin-induced thrombocytopenia 06/12/2018 08/26/2018 ELSIE (acute kidney injury) 06/12/2018 Morbid obesity with BMI of 50.0-59.9, adult 06/27/2017 08/11/2023 Overview: Per Obesity protocol #1 - Per Obesity Taxonomy ICD-10 update of inactive term Uncontrolled type 2 diabetes mellitus with stage 3 chronic kidney disease, with long-term current use of insulin 05/24/2017 020 Overview: Per CKD protocol Type 2 diabetes mellitus wit h hemoglobin A1c goal of 7.0%-8.0% 10/14/2014 01/07/2022 Overview: ICD-10 update of inactive term Kidney disease, chronic, sta ge III (GFR 30-59 ml/min) 11/19/2013 01/06/2018 Overview: Per CKD protocol #1 HTN, goal below 140/80 05/15/201202/22 Overview: Per HTN Protocol #27. Nocturnal hypoxemia 07/22/2011 07/15/20 20 Overview: Nocturnal ox 2 LPM 07/20/11 -- mean 84%, low 76%, time <89% 6:21 hours, TINY 47 DHC Nontoxic uninodular goiter 06/16/2011 1 10/17/2010 Body mass index (BMI) of 40.0-44.9 in adult 08/17/2010 05/24/2017 Obesity, morbid (more than 1 00 lbs over ideal weight or BMI > 40) 12/23/2009 06/30/2017 Overview: Per Obesity Taxonomy ICD-10 update of inactive term HTN, GOAL BELOW 130/80 10/22/200905/18 Overview: Per HTN Taxonomy. Pneumonia in aspergillosis 09/14/2009 0 02/15/2017 Venous thrombosis 09/14/2009 10/15/2010 Respiratory failure, acute 09/14/2009 0 02/15/2017 Spontaneous pneumothorax 09/14/2009 ELLIE (generalized anxiety disorder) 09/13/2009 07/02/2022 Last Assessment & Plan: Sx controlled with Klonopin Dysuria 08/23/2009 02/15/2017 History of heparin-induced thrombocytopenia 08/22/2009 06/12/2018 Type 2 diabetes mellitus wit h hemoglobin A1c goal of less than 7.0% 07/10/2009 10/14/2014 Overview: Modified per Diabetes protocol #14. ICD-10 update of inactive term Primary localized osteoarthrosis, lower leg 07/04/2008 11/20/2019 Dyslipidemia, goal LDL below 160 08/16/2007 09/04/2009 Overview: Per Lipid Taxonomy. ADVANCE DIRECTIVE INFORMATION 03/01/2006 08/26/2018 Overview: Pt has booklet. Other allergic rhinitis 12/31/2003 12/09/2017 Overview: ICD-10 update of inactive term HTN, goal below 140/90 04/09/200310/22 Overview: Per HTN Taxonomy. DM type 2, not at goal 05/29/200207/10 Overview: Modified per Diabetes protocol #14. TENOSYNOVITIS FOOT-ANKLE 12/26/2001 Goiter 01/13/2000 06/28/2011 BACKACHE NOS 08/26/1999 05/24/2017 OBESITY, UNSPECIFIED 08/26/1999 010 Overview: Per Obesity Taxonomy Perforation of intestine Overview: COLON Diverticulitis documented as of this encounter (statuses as of 09/05/2023) Immunizations Name Administration Dates Next Due COVID-19 mRNA, LNP-s, No Pre serve, 2-Dose Series (Realtime Technology) 01/08/2021,12/18/2020 COVID-19, LNP-s, No Preserve , Navarro-sucrose, Ages 12+ (Pfizer) 2022,10/01/2021 COVID-19, MRNA-LNP, 23-24, P F, 30 MCG/0.3 mL, 12 YRS AND ABOVE, IM (PFIZER-Comirnaty) 07/26/2023 Pneumococcal Conjugate Vacci ne, 20-valent ([id number]) 03/12/2022 Pneumococcal Polysaccharide PPV23 (Pneumovax) 08/22/2009,06/15/2006 SEASONAL INFLUENZA, PF, 6 M & Above, IM , (FLULAVAL or FLUZONE) 07/23/2019,06/12/2018,07/14/2017 Season Influenza, Quad, PF, Adjuvanted, 65+ Yrs, IM (FLUAD) 06/13/2020 Seasonal Influenza, Quadriva lent Hd (Fluzone Hd) 06/21/2023,06/18/2022,07/20/2021 Seasonal Influenza, Quadriva lent, No Preserve, IM [...] = 0.6 oz pur e alcohol) rare PHQ-2 Answer Date Recorded PHQ Adult Total Score 0 07/26/2023 Hunger Vital Sign Answer Date Recorded Within the past 12 months, y ou worried that your food would run out before you got the money to buy more. Never true 07/26/20 23 Within the past 12 months, t he food you bought just didn't last and you didn't have money to get more. Never true 07/26/2023 Sex and Gender Information Value Date Recorded Sex Assigned at Female 11/07/2019 2:21 PM EST Gender Identity Female 11/07/2019 2:21 PM EST Sexual Orientation Straight 11/07/2019 2: 21 PM EST Job Start Date Occupation Industry Not on file Not on file Not on file documented as of this encounter Miscellaneous Notes * Telephone Encounter - Rosemary Aguayo RN - 09/05/2023 11:13 AM EST Received call from pt who is calling to request if she can have a [facility] appt with RN to check on her later this week? She states that she is having surgery tomorrow on her carotid artery and would like for a nurse to do a HV. Will route to the pt's [facility] care team so they can determine which day someone can be scheduled this week to see the pt post op. Rosemary WALTERS, RN [facility] Intake Triage Coordinator [phone] documented in this encounter Plan of Treatment Upcoming Encounters Date Type Department Care Team (Late st Contact Info) Description 09/06/2023 9:00 AM EST Scheduled Telephone [facility], [address] [place] [address] [facility] [address] [facility] [place] [address] 09/08/2023 10:00 AM EST Office Visit Podiatry [facility] [address] [place] [address] Frances Arias DPM 132 [facility] [place] [address] 09/13/2023 9:20 AM EST Office Visit Family Practice 65 [facility] [address] [place] [address] Galdino Andujar, DO [address] [place] [address] 09/30/2023 1:00 PM EST Office Visit Family Practice 65 [facility] [address] [place] [address] Galdino Andujar, DO [address] [place] [address] 09/30/2023 1:40 PM EST Office Visit Family Practice 65 [facility] [address] [place] [address] College, Pharmacist [address] [place] [address] 10/06/2023 10:00 AM EST Home Visit [facility], [facility] [address] [place] [address] Vera Capellan, RN [address] [place] [address] 10/20/2023 12:30 PM EST Telemedicine Orthopaedics [facility] [address] [place] [address] Andrea Paez PA-C [address] [place] [address] 11/11/2023 2:00 PM EST Nurse Only Ancillary 65 [facility] [address] [place] [address] College, Nurse Annual Wellness Visit [address] [facility] [address] [facility], [place] [address] 01/11/2024 1:00 PM EDT Office Visit Cardiology, [facility] [address] [place] [address] Marjorie Powell PA-C [address] [place] [address] Scheduled Procedures Name Priority Associated Diagnoses Date/Ti me COLONOSCOPY FLEXIBLE PROXIMAL DIAGNOSTIC Recall Colon cancer screening Health Maintenance Due Date Last Done Comments Cologuard 2000 Fecal Occult Blood Test 2000 Sigmoidoscopy 2000 Hepatitis B (1 of 3 - Risk 3-dose series) 2015 Diabetic Foot Exam 11/01/2023 11/01/2022, 0 01/07/2022, 01/14/2021, Additional history exists TSH 11/01/2023 11/01/2022, 12/25, 12/25/2020, Additional history exists GFR 01/24/2024 07/25/2023, 02/25, 12/08/2022, Additional history exists HbA1c 01/24/2024 07/25/2023, 02/24, 02/11/2023, Additional history exists CKD PHOS USE SMARTSET 95714 02/12/202401/24, 01/07/2022, 03/12/2021, Additional history exists Mammogram 04/21/2024 04/21/2023, 01/24, 10/01/2020, Additional history exists Diabetic Eye Exam 05/09/2024 05/09/2023, , 04/14/2021, Additional history exists CKD HGB USE SMARTSET 34361 07/25/202407/25, 03/17/2023, 03/17/2023, Additional history exists Depression Screening 07/26/2024 07/26/2023, 06/12/20 18 Albumin/Creatinine Ratio 08/05/2024 023, 11/01/2022, 01/07/2022, Additional history exists Colonoscopy 02/17/2026 02/18/2016, 01/25, 01/28/2006, Additional history exists Colorectal Cancer Screening 02/17/2026 Zoster Vaccines Completed 05/08/2020, 10/27, 12/11/2015 Pneumococcal Vaccine: 65+ Years Completed 03/12/2022, 08/22/2009, 06/15/2006 Influenza Vaccine (FLU shot) Completed , 06/18/2022, 07/20/2021, Additional history exists COVID-19 Vaccine Completed 07/26/2023, , 10/01/2021, Additional history exists GARDASIL-HPV IMMUNIZATION SERIES Aged Out No longer eligible based on patient's age to complete this topic MENINGOCOCCAL (MENACTRA/MENVEO) Aged Out No longer eligible based on patient's age to complete this topic documented as of this encounter Medical Devices Not on filedocumented as of this encounter Advance Directives Documents on File Type Date Recorded Patient Head Piece Assembler Expl anation POLST 03/19/2020 4:25 PM POLST [...] the patient have Health Care Power of Form Raiser? No Healthcare Agents on File Name Relationship Healthcare Agent Relationship Communication Galdino Camp Other - (no specific identity) Health Care Power of Form Raiser Princess Allen Other - (no specific identity) Health Care Power of Form Raiser Care Teams Outreach Analyst Relationship Specialty Start Date End Date Galdino Andujar DO [address] [place] [address] PCP - General Internal Medicine 01/07/22 documented as of this encounter
--- OUTSIDE RECORDS SUMMARY | 2023-09-06 08:05 | External Medical Summary | Summary of Care ---
Author Name Unknown Organization [facility] Address [address] [place] [address] Phone [phone] Care Team Providers Care [employer] Name Role Phone PratimaGaldino DO Primary Care Provider [phone] Reason for Visit * Reason Onset Date Comments Appointment 10/09/2021 Encounter Details Date Type Department Care Team (Late st Contact Info) Description 10/09/2021 [facility] [address] [place] [phone] Celsa Tafoya CRNP [address] [place] [address] Appointment Allergies Active Allergy Reactions Criticality Noted Date [...] as of this encounter (statuses as of 09/02/2023) Medications Medication Sig Dispensed Refills Start Date End Date Status ONETOUCH DELICA LANCETS 33G MISC Check blood sugars 3-4 times daily 180 Each 5 8 Active oxygen GASIndications:ELISSA (obstructive sleep apnea) Use 3 L/min(Oxygen) as directed continuous. 0 0 Active CPAP every night at bedtime. 0 Active docusate sodium (STOOL SOFTENER) 100 MG Capsule Take 1 Capsule (100 mg) by mouth in the morning and 1 Capsule (100 mg) before bedtime. 0 022 Discontinued(Me dication List Clean Up) ACCU-CHEK SOFTCLIX LANCETS MISC Test blood sugar three or four times daily as directed 400 Each 3 0 022 Discontinued(Me dication List Clean Up) omeprazole (PRILOSEC) 20 MG CPDR Take 1 Cap by mouth daily. 90 Cap 3 0 022 Discontinued(Re fill) DIURETIC TITRATION PLANIndications:Ch ronic diastolic congestive heart failure (HCC) If no improvement on day 3, contact heart failure managing provider. 1 Each 0 0 023 Discontinued(Me dication List Clean Up) Blood Glucose Monitoring Suppl (Cell[employer] ULTRA 2) w/Device KIT Use to test BG values 1 Kit 0 0 023 Discontinued(Me dication List Clean Up) clobetasol propionate (TEMOVATE) 0.05 % creamIndications:L ichen planus Apply to rash on the hands and dorsal feet twice daily x 1 week, then as needed for flares. 30 g 1 0 022 Discontinued(Pa tient preference/disc ontinuation) Magnesium Oxide 400 (241.3 Mg) MG Oral TabletIndications: Hypomagnesemia Take 400 mg by mouth daily. 90 Tab 0 0 022 Discontinued(Pa tient preference/disc ontinuation) DULoxetine HCl 60 MG Oral Capsule Delayed Release Particles (CYMBALTA)Indicati ons:Fibromyalgia,M oderate episode of recurrent major depressive disorder (HCC),Primary osteoarthritis of both knees Take 1 Cap by mouth daily. Along with 30 mg capsule to total 90 mg daily. 90 Cap 3 1 022 Discontinued(Re fill) rOPINIRole HCl 2 MG Oral Tablet (Requip)Indication s:Restless legs syndrome Take 1 Tab by mouth at bedtime. 90 Tab 3 1 022 Discontinued(Re fill) Acetaminophen 500 MG Oral Tablet Take 1 Tablet by mouth every 6 hours as needed. 0 023 Discontinued(Ct dication/Dose Changed) Tresiba FlexTouch 100 UNIT/ML Subcutaneous Solution Pen-injector (Insulin Degludec)Indicatio ns:Type 2 diabetes mellitus with hemoglobin A1c goal of 7.0%-8.0% (HCC) Inject 60 Units under the skin daily. 45 mL 3 1 022 Discontinued(Re fill) Meclizine HCl 12.5 MG Oral Tablet (Antivert)Indicati ons:Vertigo Take 1 Tab by mouth 3 times a day as needed for Dizziness. 30 Tab 1 1 022 Discontinued(Re fill) Levothyroxine Sodium 50 MCG Oral Tablet (Levoxyl)Indicatio ns:Hyperparathyroi dism, secondary renal (HCC) Take 1 Tab by mouth daily. (at least 30 min prior to breakfast or other meds) 30 Tab 11 1 022 Discontinued(Re fill) Colchicine 0.6 MG Oral TabletIndications: Leukocytoclastic vasculitis (HCC) Take 1/2 tab daily 45 Tab 1 1 022 Discontinued([place] preference/disc ontinuation) Dicyclomine HCl 20 MG Oral Tablet (Bentyl) Take 1 Tab by mouth 4 times a day as needed for Pain, Mild. For abdominal pain 120 Tab 11 1 022 Discontinued(Re fill) Nortriptyline HCl 50 MG Oral Capsule (Pamelor)Indicatio ns:Fibromyalgia Take 1 Cap by mouth at bedtime. 90 Cap 1 1 022 Discontinued(Re fill) Nerve Pain Relief Sublingual Tablet SublingualIndicati ons:pt taking Nervive, nerve relief tablets at bedtime Take by mouth . 0 022 Discontinued(Ct dication List Clean Up) NovoLOG FlexPen 100 UNIT/ML Subcutaneous Solution Pen-injector (insulin aspart)Indications :Type 2 diabetes mellitus with hemoglobin A1c goal of 7.0%-8.0% (HCC) Inject 40 units with meals + sliding scale 1 units for every 25 units BG > 150. 121 mL 3 1 022 Discontinued(Re fill) Furosemide 40 MG Oral Tablet (Lasix)Indications :Chronic diastolic congestive heart failure (HCC) Take 0.5 Tabs by mouth 2 times a day. May take an additional 20 mg 2 to 3 days per week as needed for worsening swelling 135 Tab 3 1 022 Discontinued(Re fill) Levothyroxine Sodium 200 MCG Oral Tablet (Levoxyl)Indicatio ns:Postsurgical hypothyroidism TAKE ONE TABLET BY MOUTH IN THE MORNING AT LEAST 30 MINUTES PRIOR TO BREAKFAST OR OTHER MEDS 90 Tab 1 1 022 Discontinued(Re fill) Gabapentin 300 MG Oral Capsule (Neurontin) Take 300 mg by mouth 2 times a day. 0 Discontinued(Re fill) metOLazone 2.5 MG Oral Tablet (Zaroxolyn) Take 2.5 mg by mouth daily as needed. Do not take unless instructed by provider 0 Discontinued(Re fill) traMADol HCl 50 MG Oral Tablet (Ultram)Indication s:Chronic pain syndrome Take 1 Tab by mouth every 8 hours as needed for Pain, Severe. 90 Tab 0 1 022 Discontinued(Re fill) Trulicity 4.5 MG/0.5ML Subcutaneous Solution Pen-injector (Dulaglutide) Inject 1 pen under the skin weekly 2 mL 5 1 022 Discontinued(Re fill) traZODone HCl 50 MG Oral Tablet (Desyrel) Take 1 Tablet by mouth at bedtime. 90 Tablet 1 1 022 Discontinued(Re fill) DULoxetine HCl 30 MG Oral Capsule Delayed Release Particles (Cymbalta) TAKE ONE CAPSULE BY MOUTH ONE TIME DAILY. TAKE WITH 60 MG CAPSULE FOR A TOTAL OF 90 MG 90 Capsule 1 1 022 Discontinued(Re fill) Ondansetron HCl 4 MG Oral Tablet (Zofran)Indication s:Vertigo Take 1 Tablet by mouth every 6 hours as needed for Nausea. 30 Tablet 6 1 022 Discontinued(Re fill) Cyclobenzaprine HCl 10 MG Oral Tablet (Flexeril)Indicati ons:Spinal stenosis of lumbar region without neurogenic claudication,Lumba r radiculopathy TAKE ONE TABLET BY MOUTH AT BEDTIME NEEDED FOR SPASM 30 Tablet 0 1 022 Discontinued(Re fill) BD Pen Needle Short U/F 31G X 8 MM (Insulin Pen Needle) use five times daily 200 Each 5 1 022 Discontinued(Re fill) clonazePAM 0.5 MG Oral Tablet (KlonoPIN)Indicati ons:Anxiety state Take 1 Tablet by mouth 2 times a day. 60 Tablet 0 1 022 Discontinued(Re fill) Potassium Chloride Ayleen ER 10 MEQ Oral Tablet Extended Release Take 10 mEq by mouth every other day. 0 022 Discontinued(Me dication/Dose Changed) Cholecalciferol 125 MCG (5000 UT) Oral Capsule Take 1,000 Units by mouth daily. 0 022 Discontinued Lidocaine 4 % External Patch ( Lidocaine Patch) Place topically on the skin 1 Patch daily . 0 022 Discontinued([place] preference/disc ontinuation) Azithromycin 500 MG Oral Tablet (Zithromax) Take by mouth 500 mg daily . 0 022 Discontinued(Me dication List Clean Up) Cefdinir 300 MG Oral Capsule (Omnicef) Take by mouth 300 mg 2 times a day . 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 She states she has rx for atorvastatin and plavix to tack picker at pharmacy. Type 2 diabetes mellitus [...] 08/11/2022 Last Assessment & Plan: Followed by pulailyn [...] 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 Atherosclerosis of [place] ronary artery without angina pectoris 12/31/2021 [...] Assessment & Plan: Home PT to start [place] filter in place 08/19/2014 History of pulmonary [...] rx evidently given by vascular, has to tack picker rx documented as of this encounter (statuses as of 09/02/2023) Resolved Problems Problem Noted Date Diagnosed Date [...] with duloxetine, nortriptyline Thoracic back pain 07/25/2018 0 Overview: Acute. Vaginal karmen 07/13/2018 08/26/2018 Hypervolemia [...] Overview: Pt has booklet. Other allergic rhinitis 12/31/200309/2017 Overview: ICD-10 update of inactive term HTN, goal below 140/90 04/09/200310/22 Overview: Per HTN Taxonomy. DM type 2, not at goal 05/29/200207/10 Overview: Modified per Diabetes protocol #14. TENOSYNOVITIS FOOT-ANKLE 12/26/2001 Goiter 01/13/2000 06/28/2011 BACKACHE NOS 08/26/1999 05/24/2017 OBESITY, UNSPECIFIED 08/26/1999 010 Overview: Per Obesity Taxonomy Perforation of intestine Overview: COLON Diverticulitis documented as of this encounter (statuses as of 09/02/2023) Immunizations Name Administration Dates Next Due COVID-19 mRNA, LNP-s, No Pre serve, 2-Dose Series (Webalo) 01/08/2021,12/18/2020 COVID-19, LNP-s, No Preserve , Navarro-sucrose, Ages 12+ (Pfizer) 2022,10/01/2021 COVID-19, MRNA-LNP, 23-24, P F, 30 MCG/0.3 mL, 12 YRS AND ABOVE, IM ([employer]-Comirnat) 07/26/2023 Pneumococcal Conjugate Vacci ne, 20-valent ([id number]) 03/12/2022 Pneumococcal Polysaccharide PPV23 (Pneumovax) 08/22/2009,06/15/2006 SEASONAL [...] encounter Miscellaneous Notes * Telephone Encounter - Sade Cast, ELISSA - 09/02/2023 7:08 PM EST Pt seen on 02/18/[address] Sanchez. * Telephone Encounter - Xavier Peterson OSA - 10/09/2021 9:34 AM EST Lmom to on license of [facility] PFT/6 MIN walk, Pulmonary appointment and One year return with Celsa. documented in this encounter Plan of Treatment Upcoming Encounters Date Type Department Care Team (Late st Contact Info) Description 09/06/2023 9:00 AM EST Scheduled Telephone [facility] [address] [facility] [place] [address] [facility] Nurse Triage [address] [facility] [place] [address] 09/08/2023 10:00 AM EST Office Visit Podiatry [facility] [address] [place] [address] Frances Arias DPM [address] [place] [address] 09/13/2023 9:20 AM EST Office Visit Family Practice [address] [place] [address] [facility] [phone] Galdino Andujar, DO 293 [place] [address] 09/30/2023 1:00 PM EST Office Visit Family Practice [address] [facility] [address] [facility] [place] [phone] Galdino Andujar, DO 293 [place] [address] 09/30/2023 1:40 PM EST Office Visit Family Practice 65 [facility] 293 [facility] [place] [phone] College, Pharmacist [address], [place] [address] 10/06/2023 10:00 AM EST [facility] [address] [facility] [place] [address] Vera Capellan RN 132 [facility] [place] [address] 10/20/2023 12:30 PM EST Telemedicine Orthopaedics [facility] [address] [facility] [place] [address] Andrea Paez PA-C [address] [place] [address] 11/11/2023 2:00 PM EST Nurse Only Ancillary [address], [place] [address] College, Nurse Annual Wellness Visit [address], [place] [address] 01/11/2024 1:00 PM EDT Office Visit Cardiology, [facility] [address] [facility] [place] [address] Marjorie Powell PA-C [address] [place] [address] Scheduled Procedures Name Priority Associated Diagnoses Date/Ti [...] Additional history exists CKD PHOS USE SMARTSET 82041 02/12/202401/24, 01/07/2022, 03/12/2021, Additional history exists Mammogram 04/21/2024 04/21/2023, 01/24, 10/01/2020, Additional history exists Diabetic Eye Exam 05/09/2024 05/09/2023, , 04/14/2021, Additional history exists CKD HGB USE SMARTSET 94737 07/25/202407/25, 03/17/2023, 03/17/2023, Additional history exists Depression [...] Not on filedocumented as of this encounter Additional Health Concerns Infection Onset Date Last Indicated Resolved Time Respiratory Rule-Out 10/11/2022 10/11/2022 023 6:36 PM EST documented as of this encounter Advance Directives Documents on File Type Date Recorded Patient Geospatial Imagery Intelligence Analyst Expl anation POLST 03/19/2020 4:25 PM [...] the patient have Health Care Power of Orchid Superintendent? No Healthcare Agents on File Name Relationship Healthcare Agent Relationship Communication Galdino Camp Other - (no specific identity) Health Care Power of Orchid Superintendent Princess Thrashery Other - (no specific identity) Health Care Power of Orchid Superintendent Care Teams [employer] Relationship Specialty Start Date End Date Galdino Andujar DO [address] [facility] [place] [address] PCP - General Internal Medicine 01/07/22 documented as of this encounter
--- OUTSIDE RECORDS SUMMARY | 2023-09-06 08:06 | External Medical Summary | Summary of Care ---
Author Name Unknown Organization [facility] Address [address] [place] [address] Phone [phone] Care Team Providers Care Book Critic Name Role Phone Galdino Andujar DO Primary Care Provider Reason for Visit * Reason Comments eRx-Medication Refill Encounter Details Date Type Department Care Team (Late st Contact Info) Description 08/15/2023 Refill [facility], [facility] [address] [facility] [place] [address] Galdino Andujar DO [address] [place] [address] Primary insomnia Allergies Active Allergy Reactions Criticality Noted Date [...] as of this encounter (statuses as of 08/15/2023) Medications Medication Sig Dispensed Refills Start Date End Date Status ONETOUCH DELICA LANCETS 33G MISC Check blood sugars 3-4 times daily 180 Each 5 8 Active oxygen GASIndications:ELISSA (obstructive sleep apnea) Use 3 L/min(Oxygen) as directed continuous. 0 0 Active CPAP every night at bedtime. 0 Active rOPINIRole HCl 2 MG Oral [...] for Dizziness. 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 100 Tablet 0 3 Active DIURETIC TITRATION PLAN If no improvement on day 3, contact heart failure managing provider. 1 Each 0 3 Active Docusate Sodium 100 MG Oral Capsule (Colace) Take 1 Capsule by mouth in the morning and 1 Capsule before bedtime. 0 3 Active DULoxetine HCl 60 MG Oral Capsule Delayed Release Particles (Cymbalta) Take 1 Capsule by mouth in the morning. Take with 30mg cap to equal 90mg daily. 30 Capsule 5 3 Active NovoLOG FlexPen 100 UNIT/ML Subcutaneous Solution Pen-injector (insulin aspart)Indications :Type 2 diabetes mellitus with hemoglobin A1c goal of 7.0%-8.0% ([facility]) Inject 8 units with breakfast and 8units [...] THE MORNING 30 Tablet 5 3 Active Furosemide 40 MG Oral Tablet (Lasix)Indications :Chronic diastolic congestive heart failure (HCC) TAKE 1 AND 1/2 TABLETS BY MOUTH IN THE MORNING AND AT BEDTIME 84 Tablet 5 3 Active Cholecalciferol 25 MCG (1000 UT) Oral Capsule TAKE 1 TABLET BY MOUTH ONCE DAILY IN THE MORNING 30 Capsule 5 3 Active DULoxetine HCl 30 MG Oral Capsule Delayed Release Particles (Cymbalta)Indicati ons:Fibromyalgia,M ajor depressive disorder, recurrent, moderate ([facility]) TAKE 1 CAPSULE BY MOUTH ONCE DAILY IN THE MORNING 30 Capsule 5 3 Active OneTouch Verio In Vitro Strip (Glucose Blood)Indications: Hypoglycemia,Type 2 diabetes mellitus with stage 3b chronic kidney disease, with long-term current use of insulin ([facility]) Use up to 4 times a day E11.9 in case of dexcom failure 100 Strip 11 3 Active Dexcom G7 Sensor Use as directed. (From [facility]) 0 3 Active Levothyroxine Sodium 200 MCG Oral Tablet (Levoxyl)Indicatio ns:Postsurgical hypothyroidism TAKE 1 TABLET BY MOUTH ONCE DAILY IN THE MORNING 30 Tablet 5 3 Active oxyCODONE HCl 5 MG Oral Tablet (Oxy IR)Indications:Lum bar radiculopathy Take 1 Tablet by mouth every 6 hours as needed for Pain, Severe. 45 Tablet 0 3 Active traMADol HCl 50 MG Oral Tablet (Ultram)Indication s:Lumbar radiculopathy,Prim elif osteoarthritis of left knee Take 1 Tablet by mouth every 8 hours as needed for Pain, Severe. 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 Take with Levothyroxine 200 mcg dose 30 Tablet 5 3 Active Gabapentin 300 MG Oral Capsule (Neurontin)Indicat ions:Fibromyalgia TAKE 2 CAPSULES BY MOUTH IN THE MORNING, NOON AND BEDTIME] 168 Capsule 5 3 Active Omeprazole 20 MG Oral Capsule Delayed Release (PriLOSEC)Indicati ons:Gastroesophage al reflux disease with esophagitis without hemorrhage TAKE 1 CAPSULE BY MOUTH ONCE DAILY IN THE MORNING 30 Capsule 3 3 Active Mounjaro 5 MG/0.5ML Subcutaneous Solution Pen-injector (Tirzepatide) Inject 5 mg under the skin once a week. 2 mL 11 3 024 Active BD Pen Needle Short U/F 31G X 8 MM (Insulin Pen Needle) use five times daily 500 Each 3 3 Active Baclofen 10 MG Oral Tablet (Lioresal) Take 1 Tablet by mouth 2 times a day as needed for Muscle spasms. 60 Tablet 5 3 Active Plavix 75 MG Oral Tablet Take 1 Tablet by mouth daily. 0 3 Active Aspirin 81 MG Oral Tablet Delayed Release Take 1 Tablet by mouth in the morning. 0 Active Tresiba FlexTouch 100 UNIT/ML Subcutaneous Solution Pen-injector (Insulin Degludec)Indicatio ns:Type 2 diabetes mellitus with hemoglobin A1c goal of 7.0%-8.0% ([facility]) INJECT 50 UNITS UNDER THE SKIN IN THE EVENING 60 mL 3 3 Active Additional Information Patient taking differently: INJECT [...] 0 Active clonazePAM 0.5 MG Oral Tablet (KlonoPIN)Indicati [...] AT BEDTIME 30 Tablet 5 3 Active Senna-Time S 8.6-50 MG Oral Tablet (senna-docusate) TAKE 1 TABLET BY MOUTH IN THE MORNING AND AT BEDTIME 60 Tablet 5 3 023 Discontinued traZODone HCl 100 MG Oral Tablet (Desyrel)Indicatio ns:Primary insomnia TAKE 1 TABLET BY MOUTH AT BEDTIME 30 Tablet 5 3 023 Discontinued documented as of this encounter (statuses as of 08/15/2023) Active Problems Problem Noted Date Diagnosed Date Body mass index (BMI) of 45.0 to 49.9 in adult 1 10/08/2022 Overview: Per Obesity protocol - Per Obesity Taxonomy ICD-10 update of inactive term DM peripheral angiopathy 07/13/2023 Last Assessment & Plan: Now followed by vascular, reports upcoming carotid surgery at [facility]. She states she has rx for atorvastatin and plavix to pickle maker at pharmacy. Type 2 diabetes mellitus wit [...] 08/11/2022 Last Assessment & Plan: Followed by freddy [...] 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 Atherosclerosis of [place] co ronary artery without angina pectoris 12/31/2021 [...] Assessment & Plan: Home PT to start [place] filter in place 08/19/2014 History of [...] rx evidently given by vascular, has to pickle maker rx documented as of this encounter (statuses as of 08/15/2023) Resolved Problems Problem Noted Date Diagnosed Date [...] HTN Protocol #27. Nocturnal hypoxemia 07/22/2011 07/15/20 Overview: Nocturnal ox 2 LPM 07/20/11 -- [...] as of this encounter (statuses as of 08/15/2023) Immunizations Name Administration Dates Next Due COVID-19 mRNA, LNP-s, No Pre serve, 2-Dose Series (ShoutOut) 01/08/2021,12/18/2020 COVID-19, LNP-s, No Preserve , Navarro-sucrose, Ages 12+ (Pfizer) 2022,10/01/2021 COVID-19, MRNA-LNP, 23-24, P F, 30 MCG/0.3 mL, 12 YRS AND ABOVE, IM (Mercantec-Comirnaty) 07/26/2023 Pneumococcal Conjugate Vacci ne, 20-valent ([id number]) 03/12/2022 Pneumococcal Polysaccharide PPV23 (Pneumovax) 08/22/2009,06/15/2006 SEASONAL [...] Miscellaneous Notes * Telephone Encounter - Ingrid ReneCHUYITA - 08/15/2023 2:35 PM ESTPending Prescriptions: Disp Refills Senna-Time S 8.6-50 MG Oral Tablet [Pharma*60 Tab*5 Sig: TAKE 1 TABLET BY MOUTH IN THE MORNING AND AT BEDTIME traZODone HCl 100 MG Oral Tablet [Pharmacy*30 Tab*5 Sig: TAKE 1 TABLET BY MOUTH AT BEDTIME * Telephone Encounter - Ingrid Rene LPN - 08/15/2023 2:35 PM EST Did you pend patient's preferred pharmacy and medication before forwarding?yes Pharmacy: [facility] [address] Pending Prescriptions: Disp Refills Senna-Time S 8.6-50 MG Oral Tablet (senna*60 Tab*5 Sig: TAKE 1 TABLET BY MOUTH IN THE MORNING AND AT BEDTIME traZODone HCl 100 MG Oral Tablet (Desyrel*30 Tab*5 Sig: TAKE 1 TABLET BY MOUTH AT BEDTIME Last Visit: Visit date not found (in office), 07/12/2023 (telemedicine) Next Visit: 08/24/2023 If no future appointments scheduled, and last [...] Labs: Lab Results Component Value Date/Time CREAT 1.84 (A) 07/25/2023 12:00 AM CREAT 2.0 (H) 05/06/2020 08:46 AM POTASSIUM 3.9 07/25/2023 12:00 AM POTASSIUM 4.0 05/06/2020 08:46 AM TSH 1.10 11/01/2022 02:13 PM TSH 5.35 (H) 05/06/2020 08:46 AM LDLCALC 120 07/02/2022 03:11 PM LDLCALC UNINTERPRETABLE RESULT 03/14/2019 01:54 PM LDLDIRECT 126 03/14/2019 01:54 PM LDLDIRECT 109 07/14/2017 12:35 PM ALT 17 03/17/2023 12:37 PM ALT 27 05/06/2020 08:46 AM HGBA1C 9.2 (A) 07/25/2023 12:00 AM HGBA1C 7.3 (H) 01/23/2020 11:11 AM Ingrid Rene LPN [facility] 08/15/2023,2:35 PM * Telephone Encounter - Carmel Taylor RPh - 08/15/2023 11:11 AM EST Pending Prescriptions: Disp Refills Senna-Time S 8.6-50 MG Oral Tablet [Pharma*60 Tab*5 Sig: TAKE 1TABLET BY MOUTH IN THE MORNING AND AT BEDTIME traZODone HCl 100 MG Oral Tablet [Pharmacy*30 Tab*5 Sig: TAKE 1 TABLET BY MOUTH AT BEDTIME documented in this encounter Plan of Treatment Upcoming Encounters Date Type Department Care Team (Late st Contact Info) Description 08/24/2023 2:00 PM EST Home Visit [facility], [facility] [address] [place] [address] Vera Capellan, RN [address] [place] [address] 09/06/2023 9:00 AM EST Scheduled Telephone [facility], [facility] [address] [place] [address] [facility] Nurse Triage [address] [place] [address] 09/08/2023 10:00 AM EST Office Visit Podiatry [facility] [address] [place] [address] Frances Arias DPM [address] [place] [address] 09/13/2023 9:20 AM EST Office Visit Family Practice [address] [place] [phone] Galdino Andujar, DO 293 [place] [address] 09/30/2023 1:00 PM EST Office Visit Family Practice 65 [facility] 293 [facility] [place] [phone] Galdino Andujar, DO 293 [facility] [place] [address] 09/30/2023 1:40 PM EST Office Visit Family Practice 65 [facility] 293 [facility] [place] [address] College, Pharmacist [address] [place] [address] 10/20/2023 12:30 PM EST Telemedicine Orthopaedics [facility] 132 [facility] [place] [address] Andrea Paez PA-C [address] [place] [address] 11/11/2023 2:00 PM EST Nurse Only Ancillary 65 [facility] 293 [facility], [place] [address] College, Nurse Annual Wellness Visit 65 [facility] 293 [facility], [place] [address] 01/11/2024 1:00 PM EDT Office Visit Cardiology, [facility] 132 [facility] [place] [address] Marjorie Powell, EVIN 132 [facility] [place] [address] Scheduled Procedures Name Priority Associated Diagnoses Date/Ti [...] Additional history exists CKD PHOS USE SMARTSET 47627 02/12/202401/24, 01/07/2022, 03/12/2021, Additional history exists Mammogram 04/21/2024 04/21/2023, 01/24, 10/01/2020, Additional history exists Diabetic Eye Exam 05/09/2024 05/09/2023, , 04/14/2021, Additional history exists CKD HGB USE SMARTSET 72177 07/25/202407/25, 03/17/2023, 03/17/2023, Additional history exists Depression [...] of this encounter Visit Diagnoses Diagnosis Primary insomnia Persistent disorder of initiating or maintaining sleep documented in this encounter Advance Directives Documents on File Type Date Recorded Patient Deicer Finisher Expl anation POLST 03/19/2020 4:25 PM [...] the patient have Health Care Power of Washer Meat? No Healthcare Agents on File Name Relationship Healthcare Agent Relationship Communication Galdino Camp Other - (no specific identity) Health Care Power of Washer Meat Princess Allen Other - (no specific identity) Health Care Power of Washer Meat Care Teams Book Critic Relationship Specialty Start Date End Date Galdino Andujar DO [address] [place] [address] PCP - General Internal Medicine 01/07/22 documented as of this encounter
--- OUTSIDE RECORDS SUMMARY | 2023-09-06 08:06 | External Medical Summary | Summary of Care ---
Author Name Unknown Organization [facility] Address [address] [place] [address] Phone [phone] Care Team Providers Care Career Guidance Counselor Name Role Phone Pratima Galdino Neal DO Primary Care Provider [phone] Reason for Visit * Reason Comments Nutritional Services Documentation Encounter Details Date Type Department Care Team (Late st Contact Info) Description 08/12/2023 3:00 PM [facility] Nutrition Services Nutrition Services 65 [facility] [address] [place] [address] Gayathri Christensen RDN [address] [place] [address] Allergies Active Allergy Reactions Criticality Noted Date [...] as of this encounter (statuses as of 08/12/2023) Medications Medication Sig Dispensed Refills Start Date [...] for Dizziness. 30 Tablet 1 08/25/2022 Active Senna-Time S 8.6-50 MG Oral Tablet (senna-docusate) TAKE 1 TABLET BY MOUTH IN THE MORNING AND AT BEDTIME 60 Tablet 5 02/10/2023 Active traZODone HCl 100 MG Oral Tablet (Desyrel)Indication s:Primary insomnia TAKE 1 TABLET BY MOUTH AT BEDTIME 30 Tablet 5 02/10/2023 Active Potassium Chloride Ayleen ER 20 MEQ [...] of 7.0%-8.0% ([facility]) Inject 8 units with breakfast and 8units lunch and 10 units with dinner + sliding scale 1 units for every 25 units BG > 150. 150 mL 3 05/16/2023 Active metFORMIN HCl ER 500 MG Oral Tablet Extended Release 24 Hour (Glucophage XR)Indications:Type 2 diabetes mellitus with hemoglobin A1c goal of less than 8.0% ([facility]) TAKE 1 TABLET BY MOUTH ONCE [...] (Cymbalta)Indicatio ns:Fibromyalgia,Pete or depressive disorder, recurrent, moderate ([facility]) TAKE 1 CAPSULE BY MOUTH ONCE DAILY IN THE MORNING 30 Capsule 5 05/23/2023 Active OneTouch Verio In Vitro Strip (Glucose Blood)Indications:H ypoglycemia,Type 2 diabetes mellitus with stage 3b chronic kidney disease, with long-term current use of insulin ([facility]) Use up to 4 times a day E11.9 in case of dexcom failure 100 Strip 11 05/31/2023 Active Dexcom G7 Sensor Use as directed. (From [facility]) 0 06/01/2023 Active Levothyroxine Sodium 200 MCG [...] Oral Tablet (Levoxyl)Indication s:Hyperparathyroidi sm, secondary renal ([facility]) Take 1 Tablet by mouth daily first [...] of 7.0%-8.0% ([facility]) INJECT 50 UNITS UNDER THE SKIN IN THE EVENING 60 mL 3 08/04/2023 Active Additional Information Patient taking differently: INJECT 45 UNITS UNDER THE SKIN IN THE EVENING, Reported on 08/05/2023 Doxycycline Hyclate 100 MG Oral Capsule Take 1 Capsule by mouth in the morning and 1 Capsule before bedtime. 0 08/03/2023 3 Active Atorvastatin Calcium 20 MG Oral Tablet (Lipitor) [...] AT BEDTIME 60 Tablet 0 08/11/2023 Active documented as of this encounter (statuses as of 08/12/2023) Active Problems Problem Noted Date Diagnosed Date Body mass index (BMI) of 45.0 to 49.9 in adult 1 10/08/2022 Overview: Per Obesity protocol - Per Obesity Taxonomy ICD-10 update of inactive term DM peripheral angiopathy 07/13/2023 Last Assessment & Plan: Now followed by vascular, reports upcoming carotid surgery at [facility]. She states she has rx for atorvastatin and plavix to tile picker at pharmacy. 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 Atherosclerosis of [place] co ronary artery without angina pectoris 12/31/2021 [...] Assessment & Plan: Home PT to start [place] filter in place 08/19/2014 History of pulmonary [...] rx evidently given by vascular, has to tile picker rx documented as of this encounter (statuses as of 08/12/2023) Resolved Problems Problem Noted Date Diagnosed Date [...] Pt has booklet. Other allergic rhinitis 12/31/2003 1209/2017 Overview: ICD-10 update of inactive term HTN, goal below 140/90 04/09/200310/22 Overview: Per HTN Taxonomy. DM type 2, not at goal 05/29/200207/10 Overview: Modified per Diabetes protocol #14. TENOSYNOVITIS FOOT-ANKLE 12/26/2001 Goiter 01/13/2000 06/28/2011 BACKACHE NOS 08/26/1999 05/24/2017 OBESITY, UNSPECIFIED 08/26/1999 010 Overview: Per Obesity Taxonomy Perforation of intestine Overview: COLON Diverticulitis documented as of this encounter (statuses as of 08/12/2023) Immunizations Name Administration Dates Next Due COVID-19 mRNA, LNP-s, No Pre serve, 2-Dose Series (Ulthera) 01/08/2021,12/18/2020 COVID-19, LNP-s, No Preserve , Navarro-sucrose, Ages 12+ (Pfizer) 2022,10/01/2021 COVID-19, MRNA-LNP, 23-24, P F, 30 MCG/0.3 mL, 12 YRS AND ABOVE, IM (PFIZER-Comirnat) 07/26/2023 Pneumococcal Conjugate Vacci ne, 20-valent ([id number]) 03/12/2022 Pneumococcal Polysaccharide PPV23 (Pneumovax) 08/22/2009,06/15/2006 SEASONAL [...] as of this encounter Progress Notes * Gayathri Christensen, RDN - 08/12/2023 3:29 PM EST [facility] Phone Outreach Contacted patient for nutrition follow up. Latest Reference Range & Units 11/01/22 14:13 02/11/23 11:31 03/05/23 00:00 07/25/23 00:00 Hemoglobin A1C 4.0 - 5.6 % 6.9 (H) 7.7 (H) HEMOGLOBIN, D1S-HJCIPCK LAB 4.5 - 5.6 % 7.1 (E) 9.2 ! (E) (H): Data is abnormally high !: Data is abnormal (E): External lab result Out of target, reviewed. Patient states she is not feeling very well. Offered nutrition services via [facility], patient declined and patient reports she has "been down that road before". Patient reports she knows what she should and should not eat. Patient without any additional questions/concerns at this time. Patient verbalized understanding to call dietitian at [address] [place] [address] if nutrition questions/concerns arise. Encouraged patient to reach out to [address] [place] [address] or [facility] with any concerns,---patient verbalized understanding. Gayathri Christensen RDN NUTRITION SERVICES [address] [place] [address] documented in this encounter Plan of Treatment Upcoming Encounters Date Type Department Care Team (Late st Contact Info) Description 08/24/2023 2:00 PM EST Home Visit [facility], [facility] [address] [place] [address] Vera Capellan RN [address] [place] [address] 09/06/2023 9:00 AM EST Scheduled Telephone [facility], [facility] [address] [place] [address] [facility] Nurse Triage [address] [place] [address] 09/08/2023 10:00 AM EST Office Visit Podiatry [facility] [address] [place] [address] Frances Arias DPM 132 [facility] [place] [address] 09/13/2023 9:20 AM EST Office Visit Family Practice [address] [place] [address] [facility], [place] [phone] Galdino Andujar DO 293 [facility], [place] [address] 09/30/2023 1:00 PM EST Office Visit Family Practice [address] [place] [address] [facility], [place] [address] Galdino Andujar, 293 [place] [address] 09/30/2023 1:40 PM EST Office Visit Family Practice [address] [place] [address] College, Pharmacist [address] [place] [address] 10/20/2023 12:30 PM EST Telemedicine Orthopaedics [facility] 132 [facility] [place] [address] Andrea Paez PA-C [address] [place] [address] 11/11/2023 2:00 PM EST Nurse Only Ancillary [address], [place] [address] College, Nurse Annual Wellness Visit [address] [place] [address] 01/11/2024 1:00 PM EDT Office Visit Cardiology, [facility] 132 [facility] [place] [address] Marjorie Powell PA-C 132 [facility] [place] [address] Scheduled Procedures Name Priority Associated Diagnoses Date/Ti [...] Additional history exists CKD PHOS USE SMARTSET 45740 02/12/202401/24, 01/07/2022, 03/12/2021, Additional history exists Mammogram 04/21/2024 04/21/2023, 01/24, 10/01/2020, Additional history exists Diabetic Eye Exam 05/09/2024 05/09/2023, , 04/14/2021, Additional history exists CKD HGB USE SMARTSET 99806 07/25/202407/25, 03/17/2023, 03/17/2023, Additional history exists Depression [...] Documents on File Type Date Recorded Patient Rouge Mixer Expl anation POLST 03/19/2020 4:25 PM POLST [...] the patient have Health Care Power of Elementary Education Tutor? No Healthcare Agents on File Name Relationship Healthcare Agent Relationship Communication Galdino Camp Other - (no specific identity) Health Care Power of Elementary Education Tutor Princess Other - (no specific identity) Health Care Power of Elementary Education Tutor Care Teams Career Guidance Counselor Relationship Specialty Start Date End Date Galdino Andujar DO [address] [place] [address] PCP - General Internal Medicine 01/07/22 documented as of this encounter
--- OUTSIDE RECORDS SUMMARY | 2023-09-06 08:06 | External Medical Summary | Summary of Care ---
Author Name Unknown Organization [facility] Address [address] [place] [address] Phone [phone] Care Team Providers Care Inspecting Machine Adjuster Name Role Phone Galdino Andujar DO Primary Care Provider [phone] Reason for Visit * Reason Onset Date Comments Medication Refill 08/19/2023 Encounter Details Date Type Department Care Team (Late st Contact Info) Description 08/19/2023 Refill Family Practice 65 [facility] [place] [address] [place] [phone] Galdino Andujar DO [address] [place] [address] Restless legs syndrome Allergies Active Allergy Reactions Criticality Noted Date [...] as of this encounter (statuses as of 08/20/2023) Medications Medication Sig Dispensed Refills Start Date [...] [facility] [place]Chronic diastolic congestive heart failure ([facility]) TAKE 1 TABLET BY MOUTH IN THE [...] ([facility]) Inject 8 units with breakfast and 8units lunch and 10 units with dinner + sliding scale 1 units for every 25 units BG > 150. 150 mL 3 3 Active metFORMIN HCl ER 500 MG Oral Tablet Extended Release 24 Hour (Glucophage XR)Indications:Type 2 diabetes mellitus with hemoglobin A1c goal of less than 8.0% ([facility]) TAKE 1 TABLET BY MOUTH ONCE DAILY [...] Dexcom G7 Sensor Use as directed. (From [facility]) 0 3 Active Levothyroxine Sodium 200 MCG [...] once a week. 2 mL 11 3 07/13/20 24 Active BD Pen Needle Short U/F 31G [...] ([facility]) INJECT 50 UNITS UNDER THE SKIN IN [...] AT BEDTIME 30 Tablet 5 3 Active rOPINIRole HCl 2 MG Oral Tablet (Requip)Indications :Restless legs syndrome Take 1 Tablet by mouth at bedtime. 30 Tablet 5 3 Active rOPINIRole HCl 2 MG Oral Tablet (Requip)Indications :Restless legs syndrome Take 1 Tablet (2 mg) by mouth at bedtime. 30 Tablet 5 2 08/19/20 23 Discontinu ed(Refill) documented as of this encounter (statuses as of 08/20/2023) Active Problems Problem Noted Date Diagnosed Date Body mass index (BMI) of 45.0 to 49.9 in adult 1 10/08/2022 Overview: Per Obesity protocol - Per Obesity Taxonomy ICD-10 update of inactive term DM peripheral angiopathy 07/13/2023 Last Assessment & Plan: Now followed by vascular, reports upcoming carotid surgery at [facility]. She states she has rx for atorvastatin and plavix to pickler helper at pharmacy. 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 Atherosclerosis of platinum co ronary artery without angina pectoris 12/31/2021 [...] rx evidently given by vascular, has to pickler helper rx documented as of this encounter (statuses as of 08/20/2023) Resolved Problems Problem Noted Date Diagnosed Date [...] Overview: Pt has booklet. Other allergic rhinitis 12/31/2003/2018 Overview: ICD-10 update of inactive term HTN, goal below 140/90 04/09/200310/22 Overview: Per HTN Taxonomy. DM type 2, not at goal 05/29/200207/10 Overview: Modified per Diabetes protocol #14. TENOSYNOVITIS FOOT-ANKLE 12/26/2001 Goiter 01/13/2000 06/28/2011 BACKACHE NOS 08/26/1999 05/24/2017 OBESITY, UNSPECIFIED 08/26/1999 010 Overview: Per Obesity Taxonomy Perforation of intestine Overview: COLON Diverticulitis documented as of this encounter (statuses as of 08/20/2023) Immunizations Name Administration Dates Next Due COVID-19 mRNA, LNP-s, No Pre serve, 2-Dose Series (Fiz) 01/08/2021,12/18/2020 COVID-19, LNP-s, No Preserve , Navarro-sucrose, Ages 12+ (Pfizer) 2022,10/01/2021 COVID-19, MRNA-LNP, 23-24, P F, 30 MCG/0.3 mL, 12 YRS AND ABOVE, IM (PFIZER-Comirnat) 07/26/2023 Pneumococcal Conjugate Vacci ne, 20-valent ([id number]) 03/12/2022 Pneumococcal Polysaccharide PPV23 (Pneumovax) 08/22/2009,06/15/2006 SEASONAL [...] encounter Miscellaneous Notes * Telephone Encounter - Callum Zuñiga RPh - 08/20/2023 8:42 AM EST Refill pharmacists currently not authorized to approve refills for this class of medication per refill protocol. Please approve if appropriate. Thanks, Callum Zuñiga, Antione.Ph. Clinical Pharmacist [facility] [phone] 08/20/2023,8:42 AM * Telephone Encounter - Callum Zuñiga RPh - 08/20/2023 8:42 AM ESTPending Prescriptions: Disp Refills rOPINIRole HCl 2 MG Oral Tablet (Requip) 30 Tab*5 Sig: Take 1 Tablet by mouth at bedtime. * Telephone Encounter - Nallely Hernández CPhT - 08/19/2023 11:01 AM EST Did you pend patient's preferred pharmacy and medication before forwarding?yes Pharmacy: [facility] [address] Pending Prescriptions: Disp Refills rOPINIRole HCl 2 MG Oral Tablet (Requip) 30 Tab*5 Sig: Take 1 Tablet by mouth at bedtime. Last Visit: 08/05/2023 (in office), 08/04/2023 (telemedicine) Next Visit: 09/13/2023 If no future appointments scheduled, and last appointment is greater than a year ago, please schedule patient for a follow-up appointment Last date the medication was ordered: 08/25/2022 Is this request for a controlled substance?No [...] 2:00 PM EST Home Visit [facility] [address] [place] [address] Vera Capellan RN [address] [place] [address] 09/06/2023 9:00 AM EST Scheduled Telephone [facility] [address] [address] [address] [facility] Nurse Triage [address] [place] [address] 09/08/2023 10:00 AM EST Office Visit Podiatry [facility] 132 [facility] [place] [address] Frances Arias DPM 132 [facility] [place] [address] 09/13/2023 9:20 AM EST Office Visit Family Practice 65 [facility] 293 [place] [phone] Galdino Andujar, DO 293 [facility] [place] [address] 09/30/2023 1:00 PM EST Office Visit Family Practice [address] [place] [phone] Galdino Andujar, DO 293 [facility] [place] [address] 09/30/2023 1:40 PM EST Office Visit Family Practice [address] [place] [phone] College, Pharmacist [address] [place] [address] 10/20/2023 12:30 PM EST Telemedicine Orthopaedics [facility] 132 [facility] [place] [address] Andrea Paez PA-C [address] [place] [address] 11/11/2023 2:00 PM EST Nurse Only Ancillary [address], [place] [address] College, Nurse Annual Wellness Visit [address], [place] [address] 01/11/2024 1:00 PM EDT Office Visit Cardiology, [facility] [address] [place] [address] Marjorie Powell, EVIN [address] [place] [address] Scheduled Procedures Name Priority Associated Diagnoses Date/Ti [...] Additional history exists CKD PHOS USE SMARTSET 29991 02/12/202401/24, 01/07/2022, 03/12/2021, Additional history exists Mammogram 04/21/2024 04/21/2023, 01/24, 10/01/2020, Additional history exists Diabetic Eye Exam 05/09/2024 05/09/2023, , 04/14/2021, Additional history exists CKD HGB USE SMARTSET 61961 07/25/202407/25, 03/17/2023, 03/17/2023, Additional history exists Depression [...] on File Type Date Recorded Patient Electric Motor Assembler And Tester Expl anation POLST 03/19/2020 4:25 PM [...] the patient have Health Care Power of Global Supply Chain Vice President? No Healthcare Agents on File Name Relationship Healthcare Agent Relationship Communication Galdino Camp Other - (no specific identity) Health Care Power of Global Supply Chain Vice President Princess Allen Other - (no specific identity) Health Care Power of Global Supply Chain Vice President Care Teams Inspecting Machine Adjuster Relationship Specialty Start Date End Date Galdino Andujar DO [address] [place] [address] PCP - General Internal Medicine 01/07/22 documented as of this encounter
--- OUTSIDE RECORDS SUMMARY | 2023-09-06 08:06 | External Medical Summary | Summary of Care ---
Author Name Unknown Organization [facility] Address [address] [place] [address] Phone [phone] Care Team Providers Care Grocery Bagger Name Role Phone Galdino Andujar DO Primary Care Provider [phone] Reason for Visit * Reason Comments [facility]: Maintenance Encounter Details Date Type Department Care Team (Late st Contact Info) Description 08/24/2023 2:00 PM EST Home Visit [facility], [facility] [address] [place] [address] Vera Capellan, RN [address] [place] [address] Allergies Active Allergy Reactions Criticality Noted Date [...] as of this encounter (statuses as of 08/24/2023) Medications Medication Sig Dispensed Refills Start Date [...] stage 3 ([facility]),Chronic diastolic congestive heart failure ([facility]) TAKE 1 TABLET BY MOUTH IN [...] ([facility]) Inject 8 units with breakfast and 8units lunch and 10 units with dinner + sliding scale 1 units for every 25 units BG > 150. 150 mL 3 05/16/2023 Active metFORMIN HCl ER 500 MG Oral Tablet Extended Release 24 Hour (Glucophage XR)Indications:Type 2 diabetes mellitus with hemoglobin A1c goal of less than 8.0% ([facility]) TAKE 1 TABLET BY MOUTH ONCE DAILY [...] DAILY IN THE MORNING 30 Capsule 5 05/22/2023 Active DULoxetine HCl 30 MG Oral [...] Dexcom G7 Sensor Use as directed. (From [facility]) 0 06/01/2023 Active Levothyroxine Sodium 200 [...] 7.0%-8.0% ([facility]) INJECT 50 UNITS UNDER THE SKIN IN [...] as of this encounter (statuses as of 08/24/2023) Active Problems Problem Noted Date Diagnosed Date Body mass index (BMI) of 45.0 to 49.9 in adult 1 10/08/2022 Overview: Per Obesity protocol - Per Obesity Taxonomy ICD-10 update of inactive term DM peripheral angiopathy 07/13/2023 Last Assessment & Plan: Now followed by vascular, reports upcoming carotid surgery at [facility]. She states she has rx for atorvastatin and plavix to pickling operator at pharmacy. 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 Atherosclerosis of elim ira co ronary artery without angina pectoris 12/31/2021 [...] rx evidently given by vascular, has to pickling operator rx documented as of this encounter (statuses as of 08/24/2023) Resolved Problems Problem Noted Date Diagnosed Date [...] as of this encounter (statuses as of 08/24/2023) Immunizations Name Administration Dates Next Due COVID-19 mRNA, LNP-s, No Pre serve, 2-Dose Series (BlockScore) 01/08/2021,12/18/2020 COVID-19, LNP-s, No Preserve , Navarro-sucrose, Ages 12+ (Pfizer) 2022,10/01/2021 COVID-19, MRNA-LNP, 23-24, P F, 30 MCG/0.3 mL, 12 YRS AND ABOVE, IM (PFIZER-Comirnaty) 07/26/2023 Pneumococcal Conjugate Vacci ne, 20-valent ([id number]) 03/12/2022 Pneumococcal Polysaccharide PPV23 (Pneumovax) 08/22/2009,06/15/2006 SEASONAL [...] Reading Time Taken Comments Blood Pressure 140/70 08/24/2023 12:33 PM EST Pulse 70 08/24/2023 12:33 PM EST Temperature 36.2 C (97.1 F) 08/24/2023 1 2:33 PM EST Respiratory Rate 18 08/24/2023 12:3 3 PM EST Oxygen Saturation 98% 08/24/2023 12: 33 PM EST o2 on at 3 l/min via nc Inhaled Oxygen Concentration - - Weight 132.9 kg (293 lb) 08/24/2023 12: 33 PM EST Height - - Body Mass Index 48.76 08/05/2023 1:06 PM EST documented in this encounter Progress Notes * Vera Capellan RN - 08/24/2023 2:00 PM EST Images from the original note were not included. [facility] Vocal Artist Visit Date: 08/24/2023 Time: 12:46 PM Name: Stephanie Camp : 1955 Current Concerns: Pt seen for return [facility] visit/[facility] PMHx-DM type II, CKD stage III, Diastolic CHF, chronic hypoxic respiratory failure, HTN, recurrent DVT, IVC filter, Hyperlipidemia, Statin Intolerance, GERD, right Carotid Artery Stenosis, Lumbar Disc Disease, Restless Leg Syndrome, Sleep Apnea on CPAP, Heparin Induced Thrombocytopenia, and ambulatory dysfunction Pt admitted to [facility] 08/01 - 08/03/23 for hyperglycemia, weakness and fatigue - went in for scheduled R carotid artery stenting but unable to be done d/t hyperglycemia Also found Lyme's and was treated with Doxy x 10 days Today pt reports she has completed abx for Lymes and URI She continues to have a congested nose and cough with yellow mucus - she states it has gotten better but has not completely resolved yet - she had Covid/Flu/RSV testing done and negative Blood sugars have been ranging mostly in the 200's Physical Exam: BP 140/70 | Pulse 70 | Temp 36.2 C (97.1 F) | Resp 18 | Wt 132.9 kg (293 lb) | LMP 03/11/2003 |SpO2 98% Comment: o2 on at 3 l/min via nc | BMI 48.76 kg/m | BSA 2.47 m Pain 0 Physical Exam Constitutional: General: [...] present. Neurological: Mental Status: She is alert. Problems/Symptoms: Review of Systems HENT: Positive for congestion. Eyes: Negative. Respiratory: Positive for cough (with yellow mucus) and shortness of breath (AVENDAÑO - at baseline). Cardiovascular: Positive for leg swelling. Gastrointestinal: Negative. Endocrine: Negative. Genitourinary: Negative. Musculoskeletal: Positive for arthralgias, back pain and gait problem. Skin: Negative. Neurological: Positive for numbness. Psychiatric/Behavioral: Negative. Medication Reconciliation: (See medication list) Does patient take medications as ordered: Yes Patient Well Being: PHQ2/9: No questionnaires available. No change in living situation Denies falls [facility]-10 Completed this Visit: No. Routine visit and No falls since last visit Advanced Care Planning: POLST. Patient's Goals of Care: Feel better Reinforcement/Education: Educated on home safety: Create a fall proof home Clear floors of clutter, loose wires, throw rugs, and cords. Make sure halls, stairways, and entrances are well lit. Install a nightlight in your bedroom, hallway and bathroom. Install grab bars or handrails in the bathroom and on stairs. Use a non-skid tub/shower mat. Avoid climbing on a chair; instead use a step stool with a high handrail. Keep sidewalks and steps in good repair Keep steps and sidewalks free of snow and ice. Using aids to support and prevent falls If you have poor balance or have fallen in the past, consider additional support such as a cane or walker. Use a cane with good support and that is the proper length for you. Use a walker if a cane doesnt provide enough support. Avoid medications that increase the risk of falling by causing dizziness, change in sensation or slowed reflexes. Certain medicines may cause falls - blood pressure pills, heart medicines, water pills, or sleepingpills. Be sure to understand each medicine that [...] fall prevention. and Reinforced medication regimen. Timing., Dosing., and Purspose. Treatment/Plan: Continues meds as prescribed Pill packs from [employer] Continue to check blood sugars 4x a day MTM for DM management Wear oxygen at 2 lmin via [place] Low na diet Weight self daily via [facility] scale Compression stockings on in am, off in pm Keep all appts as scheduled Home Interventions Provided: Home Intervention: Other; Evaluation Reinforced current Plan of Care, including self-management and medication regimen Patient's 'Red Flags': Increased SOB Wt up to 315 lbs Increased edema Patient Needs to Remember: Call [facility] at with any new or worsening health concerns or problems, red flag symptoms. Referrals Needed: Other none Follow Up: Is there cellular connectivity/connectivity in the home? Yes Does the patient have internet in the home? Yes Patient encouraged to call the intake phone number for all urgent but not emergent issues. Is the patient new to [facility] within the last 30 days? No, Assess appropriateness for upcoming telehealth visits. Cancel telehealth visits & schedule home visit with care steam drier tender(s)as indicated. Provider is in agreement with Plan of Care: Yes Scheduled to follow up with patient in 5 weeks. Vera Capellan RN 08/24/2023 12:46 PM documented in this encounter Plan of Treatment Upcoming Encounters Date Type Department Care Team (Late st Contact Info) Description 09/06/2023 9:00 AM EST Scheduled Telephone ising at [place], [facility] 132 [facility] [place] [address] [facility] Nurse Triage 132 [facility] [place] [address] 09/08/2023 10:00 AM EST Office Visit Podiatry [facility] 132 [facility] [place] [address] Frances Arias DPM 132 [facility] [place] [address] 09/13/2023 9:20 AM EST Office Visit Family Practice 65 [facility] 293 [place] [address] Galdino Andujar, DO 293 [place] [address] 09/30/2023 1:00 PM EST Office Visit Family Practice 65 [facility] 293 [place] [phone] Galdino Andujar, DO 293 [facility] [address] 09/30/2023 1:40 PM EST Office Visit Family Practice 65 [facility] 293 [place] [address] College, Pharmacist [address] [place] [address] 10/06/2023 10:00 AM EST [facility] Visit [facility], [facility] 132 [facility] [place] [address] Vera Capellan, RN 132 [facility] [place] [address] 10/20/2023 12:30 PM EST Telemedicine Orthopaedics [facility] [address] [place] [address] Andrea Paez PA-C [address] [place] [address] 11/11/2023 2:00 PM EST Nurse Only Ancillary 65 [facility] 293 [place] [address] College, Nurse Annual Wellness Visit 65 [facility] 293 [facility], [place] [address] 01/11/2024 1:00 PM EDT Office Visit Cardiology, [facility] [address] [place] [address] Marjorie Powell PA-C [address] [place] [address] Scheduled Procedures Name Priority Associated Diagnoses Date/Ti [...] Additional history exists CKD PHOS USE SMARTSET 80316 02/12/202401/24, 01/07/2022, 03/12/2021, Additional history exists Mammogram 04/21/2024 04/21/2023, 01/24, 10/01/2020, Additional history exists Diabetic Eye Exam 05/09/2024 05/09/2023, , 04/14/2021, Additional history exists CKD HGB USE SMARTSET 12077 07/25/202407/25, 03/17/2023, 03/17/2023, Additional history exists Depression [...] on File Type Date Recorded Patient Ice Rink Attendant Expl anation POLST 03/19/2020 4:25 PM POLST [...] the patient have Health Care Power of Film And Video Editor? No Healthcare Agents on File Name Relationship Healthcare Agent Relationship Communication Galdino Camp Other - (no specific identity) Health Care Power of Film And Video Editor Princess Allen Other - (no specific identity) Health Care Power of Film And Video Editor Care Teams Grocery Bagger Relationship Specialty Start Date End Date Galdino Andujar DO [address] [place] [address] PCP - General Internal Medicine 01/07/22 documented as of this encounter
--- OUTSIDE RECORDS SUMMARY | 2023-09-06 08:06 | External Medical Summary | Summary of Care ---
Author Name Unknown Organization [facility] Address [address] [place] [address] Phone [phone] Care Team Providers Care Bilingual Manager Name Role Phone Galdino Andujar DO Primary Care Provider [phone] Reason for Visit * Reason Onset Date Comments Advice 08/16/2023 Mobilty seat Encounter Details Date Type Department Care Team (Late st Contact Info) Description 08/16/2023 Telephone Family Practice 65 [facility] [place] [address] [place] [address] Galdino Andujar DO [address] [place] [address] Advice (Mobilty seat) Allergies Active Allergy Reactions Criticality Noted Date [...] as of this encounter (statuses as of 08/16/2023) Medications Medication Sig Dispensed Refills Start Date [...] NYHA class 1 and CKD stage 3 ([facility]),Chronic diastolic congestive heart failure ([facility]) TAKE 1 TABLET BY MOUTH IN THE [...] [facility]) Inject 8 units with breakfast and 8units [...] ONCE DAILY IN THE MORNING 30 Tablet 05/22/2023 Active Furosemide 40 MG Oral Tablet [...] ONCE DAILY IN THE MORNING 30 Capsule 05/23/2023 Active OneTouch Verio In Vitro Strip (Glucose Blood)Indications:H ypoglycemia,Type 2 diabetes mellitus with stage 3b chronic kidney disease, with long-term current use of insulin (HCC) Use up to 4 times a day E11.9 in case of dexcom failure 100 Strip 11 05/31/2023 Active Dexcom G7 Sensor Use as directed. (From [facility]) 0 06/01/2023 Active Levothyroxine Sodium 200 MCG [...] [facility]IN [facility]) INJECT 50 UNITS UNDER THE SKIN IN [...] AT BEDTIME 30 Tablet 5 08/15/2023 Active documented as of this encounter (statuses as of 08/16/2023) Active Problems Problem Noted Date Diagnosed Date Body mass index (BMI) of 45.0 to 49.9 in adult 1 10/08/2022 Overview: Per Obesity protocol - Per Obesity Taxonomy ICD-10 update of inactive term DM peripheral angiopathy 07/13/2023 Last Assessment & Plan: Now followed by vascular, reports upcoming carotid surgery at [facility]. She states she has rx for atorvastatin and plavix to bead picker at pharmacy. 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 Atherosclerosis of [place] ronary artery without angina pectoris 12/31/2021 [...] rx evidently given by vascular, has to bead picker rx documented as of this encounter (statuses as of 08/16/2023) Resolved Problems Problem Noted Date Diagnosed Date [...] as of this encounter (statuses as of 08/16/2023) Immunizations Name Administration Dates Next Due COVID-19 mRNA, LNP-s, No Pre serve, 2-Dose Series ([employer]) 01/08/2021,12/18/2020 COVID-19, LNP-s, No Preserve , Navarro-sucrose, Ages 12+ (Pfizer) 2022,10/01/2021 COVID-19, MRNA-LNP, 23-24, P F, 30 MCG/0.3 mL, 12 YRS AND ABOVE, IM (PFIZER-Comirnaty) 07/26/2023 Pneumococcal Conjugate Vacci ne, 20-valent ([id number]) 03/12/2022 Pneumococcal Polysaccharide PPV23 (Pneumovax) 08/22/2009,06/15/2006 SEASONAL [...] Telephone Encounter - Shira Gross LPN - 08/16/2023 3:01 PM EST Called, left message for patient to return call. Left message stating that I would finish paperwork. Thank you * Telephone Encounter - Irina Vergara OSA - 08/16/2023 11:07 AM EST Pt calling in regards to a mobility chair. States she spoke with [employer] who states they have not received the required the paperwork from [place] that they need. States she KNOWS Shira sent a copy. They can be reached [phone]. Please call so they can advise what is needed Please advise. documented in this encounter Plan of Treatment Upcoming Encounters Date Type Department Care Team (Late st Contact Info) Description 08/24/2023 2:00 PM EST Home Visit [facility] [address] [place] [address] Vera Capellan, RN [address] [place] [address] 09/06/2023 9:00 AM EST Scheduled Telephone [facility] [address] [place] [address] [facility] [place] [address] 09/08/2023 10:00 AM EST Office Visit Podiatry [facility] [address] [place] [address] Farnces Arias DPM [facility] [place] [address] 09/13/2023 9:20 AM EST Office Visit Family Practice [address] [place] [address] Galdino Andujar, DO 293 [facility] [place] [address] 09/30/2023 1:00 PM EST Office Visit Family Practice 65 [facility] 293 [place] [address] Galdino Andujar, DO 293 [facility] [place] [address] 09/30/2023 1:40 PM EST Office Visit Family Practice 65 [facility] 293 [place] [address] College, Pharmacist [address] [place] [address] 10/20/2023 12:30 PM EST Telemedicine Orthopaedics [facility] 132 [facility] [place] [address] Andrea Paez PA-C [address] [place] [address] 11/11/2023 2:00 PM EST Nurse Only Ancillary 65 [facility] 293 [facility], [place] [address] College, Nurse Annual Wellness Visit 65 [facility] [address] [facility], [place] [address] 01/11/2024 1:00 PM EDT Office Visit Cardiology, [facility] 132 [facility] [place] [address] Marjorie Powell PA-C 132 [facility] [place] [address] Scheduled Procedures Name Priority Associated Diagnoses Date/Ti [...] Additional history exists CKD PHOS USE SMARTSET 84776 02/12/202401/24, 01/07/2022, 03/12/2021, Additional history exists Mammogram 04/21/2024 04/21/2023, 01/24, 10/01/2020, Additional history exists Diabetic Eye Exam 05/09/2024 05/09/2023, , 04/14/2021, Additional history exists CKD HGB USE SMARTSET 83044 07/25/202407/25, 03/17/2023, 03/17/2023, Additional history exists Depression [...] on File Type Date Recorded Patient Dredge Operator Supervisor Expl anation POLST 03/19/2020 4:25 PM [...] the patient have Health Care Power of Packer? No Healthcare Agents on File Name Relationship Healthcare Agent Relationship Communication Galdino Camp Other - (no specific identity) Health Care Power of Packer Prinecss Allen Other - (no specific identity) Health Care Power of Packer Care Teams Bilingual Manager Relationship Specialty Start Date End Date Galdino Andujar DO [address] [place] [address] PCP - General Internal Medicine 01/07/22 documented as of this encounter
--- OUTSIDE RECORDS SUMMARY | 2023-09-06 08:07 | External Medical Summary | Summary of Care ---
Author Name Unknown Organization [facility] Address [address] [facility] [address] Phone [phone] Care Team Providers Care Machine Package Sealer Name Role Phone Galdino Andujar DO Primary Care Provider [phone] Reason for Visit * Reason Onset Date Comments [facility]: Maintenance 08/07/2023 Encounter Details Date Type Department Care Team (Late st Contact Info) Description 08/07/2023 4:00 PM EST Scheduled Telephone [facility], [facility] 132 [facility] [place] [address] [facility], Nurse [facility] 132 [facility] [place] [address] Allergies Active Allergy Reactions Criticality Noted Date [...] as of this encounter (statuses as of 08/07/2023) Medications Medication Sig Dispensed Refills Start Date [...] 7.0%-8.0% ([facility]) Inject 8 units with breakfast and 8units lunch and 10 units with dinner + sliding scale 1 units for every 25 units BG > 150. 150 mL 3 05/16/2023 Active metFORMIN HCl ER 500 MG Oral Tablet Extended Release 24 Hour (Glucophage XR)Indications:Type 2 diabetes mellitus with hemoglobin A1c goal of less than 8.0% ([facility]) TAKE 1 TABLET BY MOUTH ONCE DAILY IN THE MORNING 30 Tablet 05/22/2023 Active Furosemide 40 MG Oral Tablet (Lasix)Indications: Chronic diastolic congestive heart failure (HCC) TAKE 1 AND 1/2 TABLETS BY MOUTH IN THE MORNING AND AT BEDTIME 84 Tablet 05/20/2023 Active Cholecalciferol 25 MCG (1000 UT) [...] of insulin ([facility]) Use up to 4 times a day E11.9 in case of dexcom failure 100 Strip 11 05/31/2023 Active Dexcom G7 Sensor Use as directed. (From [facility]) 0 06/01/2023 Active Levothyroxine Sodium 200 MCG [...] ([facility]) Take 1 Tablet by mouth daily [...] THE MORNING 30 Capsule 3 07/12/2023 Active clonazePAM 0.5 MG Oral Tablet (KlonoPIN)Indicatio ns:Restless legs syndrome,Anxiety state TAKE 1 TABLET BY MOUTH IN THE MORNING AND AT BEDTIME 60 Tablet 0 07/12/2023 Active Mounjaro 5 MG/0.5ML Subcutaneous Solution [...] of 7.0%-8.0% ([facility]) INJECT 50 UNITS UNDER THE SKIN [...] hours as needed for Nausea. 0 Active documented as of this encounter (statuses as of 08/07/2023) Active Problems Problem Noted Date Diagnosed Date DM peripheral angiopathy 07/13/2023 Last Assessment & Plan: Now followed by vascular, reports upcoming carotid surgery at [facility]. She states she has rx for atorvastatin and plavix to cherry picker operator at pharmacy. Type 2 diabetes mellitus [...] Anxiety state 09/29/2022 Sacroiliitis, not elsewhere classified 3 Last Assessment & Plan: Has been having [...] 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 Atherosclerosis of [place] co ronary artery without angina pectoris 12/31/2021 [...] to pcp Controlled substance agreement signed 07/14/2017 Morbid obesity with BMI of 50.0-59.9, adult 10/2016 Overview: Per Obesity protocol #1 - Per Obesity Taxonomy ICD-10 update of inactive term Gastroesophageal reflux disease with esophagitis 03/04/2017 Last Assessment & Plan: Continue omeprazole Restless legs syndrome 03/25/2016 Last Assessment & Plan: Continue Requip Fibromyalgia 02/02/2016 Last Assessment & Plan: Continue tramadol Abnormality of gait 02/02/2016 Last Assessment & Plan: Home PT to start [place] filter in place 08/19/2014 History of pulmonary [...] rx evidently given by vascular, has to cherry picker operator rx documented as of this encounter (statuses as of 08/07/2023) Resolved Problems Problem Noted Date Diagnosed Date [...] 06/12/2018 08/26/2018 ELSIE (acute kidney injury) 06/12/2018 Uncontrolled type 2 diabetes mellitus with stage [...] as of this encounter (statuses as of 08/07/2023) Immunizations Name Administration Dates Next Due COVID-19 mRNA, LNP-s, No Pre serve, 2-Dose Series (IM5) 01/08/2021,12/18/2020 COVID-19, LNP-s, No Preserve , Navarro-sucrose, Ages 12+ (IM5) 2022,10/01/2021 COVID-19, MRNA-LNP, 23-24, P F, 30 MCG/0.3 mL, 12 YRS AND ABOVE, IM (PFIZER-Comirnaty) 07/26/2023 Pneumococcal Conjugate Vacci ne, 20-valent ([id number]) 03/12/2022 Pneumococcal Polysaccharide PPV23 (Pneumovax) 08/22/2009,06/15/2006 SEASONAL [...] encounter Miscellaneous Notes * Telephone Encounter - Eugenie Romero RN - 08/07/2023 8:45 AM EST Communication Note Name: Stephanie Camp Situation: Phone call for follow up on bsg post ROSA visit. Background: PMHx-DM type II, CKD stage III, Diastolic CHF, chronic hypoxic respiratory failure, HTN, recurrent DVT, IVC filter, Hyperlipidemia, Statin Intolerance, GERD, right Carotid Artery Stenosis, Lumbar Disc Disease, Restless Leg Syndrome, Sleep Apnea on CPAP, Heparin Induced Thrombocytopenia,and ambulatory dysfunction [facility] admission 08/01-08/03/23 Scheduled for R carotid artery stenting, procedure cx due hyperglycemia, weakness and fatigue Lyme testing was equivocal tx with doxcycline x 10 days. Glucose improved with insulin dosing adjustments. Drivers of Prior Utilization: Cellulitis, utis, CHF, respiratory failure, abdominal pain Assessment: Feeling the same as yesterday "crappy". Throat is not sore today, just scratchy. States she had a dry cough overnight. She did tolerate her CPAP and had humidification on. Denies fever/chills, nausea, vomiting. States she didn't sleep well last night due her back pain flaring. Denies acute or concerning changes in condition today. States she is going to try and go back to bed and sleep. Bsg was steady throughout the night Pt states it stayed right below the 250 kathleen. This morning it was just under 250. Denies any needs today. Recommendation: Continue to monitor bsg, report episodes of hypoglycemia(<100 symptomatic) or persistent hyperglycemia(>250) Continue management with [facility] pharmacy for DM medication management s/p hospitalizatio Complete course of doxycycline Continue to wear oxygen as directed Call [facility] at with any new or worsening health concerns or problems, red flag symptoms. documented in this encounter Plan of Treatment Upcoming Encounters Date Type Department Care Team (Late st Contact Info) Description 09/06/2023 9:00 AM EST Scheduled Telephone [facility], [facility] [address] [place] [address] [facility] Nurse T[facility] [address] [place] [address] 09/08/2023 10:00 AM EST Office Visit Podiatry [facility] [address] [place] [address] Frances Arias DPM 132 [facility] [place] [address] 09/13/2023 9:20 AM EST Office Visit Family Practice [address] [place] [address] 293 [place] [address] Galdino Andujar DO 293 [facility] [place] [address] 09/30/2023 1:00 PM EST Office Visit Family Practice [address] [place] [address] 293 [place] [address] Galdino Andujar DO 293 [facility] [place] [address] 09/30/2023 1:40 PM EST Office Visit Family Practice [address] [place] [address] College, Pharmacist [address] [place] [address] 10/20/2023 12:30 PM EST Telemedicine Orthopaedics [facility] 132 [facility] [place] [address] Andrea Paez PA-C [address] [place] [address] 11/11/2023 2:00 PM EST Nurse Only Ancillary [address] [place] [address] College, Nurse Annual Wellness Visit [address] [place] [address] 01/11/2024 1:00 PM EDT Office Visit Cardiology, [facility] 132 [facility] [place] [address] Marjorie Powell PA-C 132 [facility] [place] [address] Scheduled Procedures Name Priority Associated Diagnoses Date/Ti me COLONOSCOPY FLEXIBLE PROXIMAL DIAGNOSTIC Recall Colon cancer screening Health Maintenance Due Date Last Done Comments Cologuard 2000 Fecal Occult Blood Test 2000 Sigmoidoscopy 2000 Hepatitis B (1 of 3 - Risk 3-dose series) 2015 Diabetic Foot Exam 11/01/2023 11/01/2022, 0 01/07/2022, 01/14/2021, Additional history exists TSH 11/01/2023 11/01/2022, 0412/2021, 12/25/2020, Additional history exists GFR 01/24/2024 07/25/2023, 02/25, 12/08/2022, Additional history exists HbA1c 01/24/2024 07/25/2023, 02/24, 02/11/2023, Additional history exists CKD PHOS USE SMARTSET 28202 02/12/202401/24, 01/07/2022, 03/12/2021, Additional history exists Mammogram 04/21/2024 04/21/2023, 01/24, 10/01/2020, Additional history exists Diabetic Eye Exam 05/09/2024 05/09/2023, , 04/14/2021, Additional history exists CKD HGB USE SMARTSET 14885 07/25/202407/25, 03/17/2023, 03/17/2023, Additional history exists Depression [...] Documents on File Type Date Recorded Patient Spring Upholsterer Expl anation POLST 03/19/2020 4:25 PM POLST [...] patient have Health Care Power of Sales Product Specialist? No Healthcare Agents on File Name Relationship Healthcare Agent Relationship Communication Galdino Camp Other - (no specific identity) Health Care Power of Sales Product Specialist Princess Allen Other - (no specific identity) Health Care Power of Sales Product Specialist Care Teams Machine Package Sealer Relationship Specialty Start Date End Date Galdino Andujar DO [address] [place] [address] PCP - General Internal Medicine 01/07/22 documented as of this encounter
--- OUTSIDE RECORDS SUMMARY | 2023-09-06 08:07 | External Medical Summary | Summary of Care ---
Author Name Unknown Organization [facility] Address [address] [facility] [place] [address] Phone [phone] Care Team Providers Care District Service Manager Name Role Phone Galdino Andujar DO Primary Care Provider Reason for Visit * Reason Onset Date Comments [facility]: Maintenance 08/06/2023 Encounter Details Date Type Department Care Team (Late st Contact Info) Description 08/06/2023 Telephone [facility], [facility] 132 [facility] [place] [address] Angi Herrrea RN [address] [place] [address] [facility]: Maintenance Allergies Active Allergy [...] as of this encounter (statuses as of 08/06/2023) Medications Medication Sig Dispensed Refills Start Date [...] hemoglobin A1c goal of 7.0%-8.0% (HCC) Inject 8 units with breakfast and 8units [...] use of insulin ([facility]) Use up to 4 times a day E11.9 in case of dexcom failure 100 Strip 11 05/31/2023 Active Dexcom G7 Sensor Use as directed. (From [facility]) 0 06/01/2023 Active Levothyroxine Sodium 200 [...] (Levoxyl)Indication s:Hyperparathyroidi sm, secondary renal ([facility]) Take 1 Tablet by mouth daily [...] goal of 7.0%-8.0% ([facility]) INJECT 50 UNITS UNDER THE SKIN IN THE EVENING 60 mL 3 08/04/2023 Active Additional Information Patient taking differently: INJECT 45 UNITS UNDER THE SKIN IN THE EVENING, Reported on 08/05/2023 Doxycycline Hyclate 100 MG Oral Capsule Take 1 Capsule by mouth in the morning and 1 Capsule before bedtime. 0 08/03/2023 3 Active documented as of this encounter (statuses as of 08/06/2023) Active Problems Problem Noted Date Diagnosed Date DM peripheral angiopathy 07/13/2023 Last Assessment & Plan: Now followed by vascular, reports upcoming carotid surgery at [facility]. She states she has rx for atorvastatin and plavix to medicinal plant picker at pharmacy. 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 Atherosclerosis of [place] ronary artery without angina pectoris 12/31/2021 [...] Assessment & Plan: Home PT to start [place] filter in place 08/19/2014 History of pulmonary [...] rx evidently given by vascular, has to medicinal plant picker rx documented as of this encounter (statuses as of 08/06/2023) Resolved Problems Problem Noted Date Diagnosed Date [...] as of this encounter (statuses as of 08/06/2023) Immunizations Name Administration Dates Next Due COVID-19 mRNA, LNP-s, No Pre serve, 2-Dose Series (4tiitoo) 01/08/2021,12/18/2020 COVID-19, LNP-s, No Preserve , Navarro-sucrose, Ages 12+ (4tiitoo) 2022,10/01/2021 COVID-19, MRNA-LNP, 23-24, P F, 30 MCG/0.3 mL, 12 YRS AND ABOVE, IM (Mowbly-Comirnat) 07/26/2023 Pneumococcal Conjugate Vacci ne, 20-valent ([id number]) 03/12/2022 Pneumococcal Polysaccharide PPV23 (Pneumovax) 08/22/2009,06/15/2006 SEASONAL [...] Miscellaneous Notes * Telephone Encounter - Angi Herrera RN - 08/06/2023 2:59 PM EST Phone call to pt to follow up on triage message to cancel appt for today. Reinforced importance of post hospital follow up with med rec to ensure proper dosing of medications. Pt reluctantly agreed. documented in this encounter Plan of Treatment Upcoming Encounters Date Type Department Care Team (Late st Contact Info) Description 09/06/2023 9:00 AM EST Scheduled Telephone [facility], [facility] [address] [place] [address] [facility] Nurse Triage [address] [place] [address] 09/08/2023 10:00 AM EST Office Visit Podiatry [facility] [address] [place] [address] Frances Arias DPM [address] [place] [address] 09/13/2023 9:20 AM EST Office Visit Family Practice 65 [facility] 293 [facility] [place] [address] Galdino Andujar, DO 293 [facility] [place] [address] 09/30/2023 1:00 PM EST Office Visit Family Practice 65 [facility] [address] [facility] [place] [address] Galdino Andujar, DO 293 [facility] [place] [address] 09/30/2023 1:40 PM EST Office Visit Family Practice 65 [facility] 293 [place] [address] [place], Pharmacist [address] [place] [address] 10/20/2023 12:30 PM EST Telemedicine Orthopaedics [facility] 132 [facility] [place] [address] Andrea Paez PA-C [address] [place] [address] 11/11/2023 2:00 PM EST Nurse Only Ancillary 65 [facility] 293 [place] [address] [place], Nurse Annual Wellness Visit [address], [place] [address] 01/11/2024 1:00 PM EDT Office Visit Cardiology, [facility] 132 [facility] [place] [address] Marjorie Powell PA-C [address] [place] [address] Scheduled Procedures Name Priority Associated Diagnoses Date/Ti [...] Additional history exists CKD PHOS USE SMARTSET 49240 02/12/202401/24, 01/07/2022, 03/12/2021, Additional history exists Mammogram 04/21/2024 04/21/2023, 01/24, 10/01/2020, Additional history exists Diabetic Eye Exam 05/09/2024 05/09/2023, , 04/14/2021, Additional history exists CKD HGB USE SMARTSET 77100 07/25/202407/25, 03/17/2023, 03/17/2023, Additional history exists Depression [...] Documents on File Type Date Recorded Patient [place] Traffic Checker Expl anation POLST 03/19/2020 4:25 PM POLST [...] the patient have Health Care Power of Business Intelligence Etl Developer? No Healthcare Agents on File Name Relationship Healthcare Agent Relationship Communication Galdino Camp Other - (no specific identity) Health Care Power of Business Intelligence Etl Developer Princess Allen Other - (no specific identity) Health Care Power of Business Intelligence Etl Developer Care Teams District Service Manager Relationship Specialty Start Date End Date Galdino Andujar DO [address] [place] [address] PCP - General Internal Medicine 01/07/22 documented as of this encounter
--- OUTSIDE RECORDS SUMMARY | 2023-09-06 08:07 | External Medical Summary | Summary of Care ---
Author Name Unknown Organization [facility] Address [address] [place] [address] Phone [phone] Care Team Providers Care Dump Motorman Name Role Phone Galdino Andujar DO Primary Care Provider [phone] Reason for Visit * Reason Comments [facility]: Acute ROSA Encounter Details Date Type Department Care Team (Late st Contact Info) Description 08/06/2023 2:00 PM EST [facility] [address] [facility], Nurse [facility] [address] [place] [address] Allergies Active Allergy Reactions Criticality Noted Date [...] (Cymbalta)Indicatio ns:Fibromyalgia,Pete or depressive disorder, recurrent, moderate ([facility]) TAKE 1 CAPSULE BY MOUTH ONCE DAILY IN THE MORNING 30 Capsule 5 05/23/2023 Active OneTouch Verio In Vitro Strip (Glucose Blood)Indications:H ypoglycemia,Type 2 diabetes mellitus with stage 3b chronic kidney disease, with long-term current use of insulin ([facility]) Use up to 4 times a day E11.9 in case of dexcom failure 100 Strip 11 05/31/2023 Active Dexcom G7 Sensor Use as directed. (From [facility]) 0 06/01/2023 Active Levothyroxine Sodium 200 [...] goal of 7.0%-8.0% ([facility]) INJECT 50 UNITS UNDER THE SKIN [...] by vascular, reports upcoming carotid surgery at [facility]. She states she has rx for atorvastatin and plavix to fruit picker at pharmacy. 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 Atherosclerosis of [place] ronary artery without angina pectoris 12/31/2021 [...] rx evidently given by vascular, has to fruit picker rx documented as of this encounter [...] mRNA, LNP-s, No Pre serve, 2-Dose Series (InstaGIS) 01/08/2021,12/18/2020 COVID-19, LNP-s, No Preserve , Navarro-sucrose, Ages 12+ (Pfizer) 2022,10/01/2021 COVID-19, MRNA-LNP, 23-24, P F, 30 MCG/0.3 mL, 12 YRS AND ABOVE, IM (PFIZER-Comirnaty) 07/26/2023 Pneumococcal Conjugate Vacci ne, 20-valent ([id number]) 03/12/2022 Pneumococcal Polysaccharide PPV23 (Pneumovax) 08/22/2009,06/15/2006 SEASONAL [...] Sign Reading Time Taken Comments Blood Pressure 100/74 08/06/2023 2:10 PM EST Pulse 92 08/06/2023 2:10 PM EST Temperature 37 C (98.6 F) 08/06/2023 2:10 PM EST Respiratory Rate 20 08/06/2023 2:10 PM EST Oxygen Saturation 94% 08/06/2023 2:10 PM EST 3 liters Inhaled Oxygen Concentration - - Weight - - Height - - Body Mass Index - - documented in this encounter Progress Notes * Eugenie Romero RN - 08/06/2023 2:00 PM EST [facility] [employer] [employer] ROSA Visit Date: 08/06/2023 Time: 2:09 PM Name: Stephanie Camp : 1955 SITUATION: Patient is being seen for [facility] RNCM ROSA visit. BACKGROUND: PMHx-DM type II, CKD stage III, Diastolic CHF, chronic hypoxic respiratory failure, HTN, recurrent DVT, IVC filter, Hyperlipidemia, Statin Intolerance, GERD, right Carotid Artery Stenosis, Lumbar Disc Disease, Restless Leg Syndrome, Sleep Apnea on CPAP, Heparin Induced Thrombocytopenia, and ambulatory dysfunction [facility] admission 08/01-08/03/23 Scheduled for R carotid artery stenting, procedure cx due hyperglycemia, weakness and fatigue Lyme testing was equivocal tx with doxcycline x 10 days. Glucose improved with insulin dosing adjustments. Drivers of Prior Utilization: Cellulitis, utis, CHF, respiratory failure, abdominal pain ASSESSMENT: Patient presents in recliner chair on oxygen via NC, eating saltine crackers with peanut butter and sliced apples. States this is her lunch today. Feeling about the same today, "still crappy". Denies acute changes in condition since PCP visit 08/05/23. DM Bsg 245 -non fasting today--Dexcom in place. Has a back up one touch verio glucometer. States bsg have been ranging around the mid 200's. Followed by [facility] for DM management Tresiba-45 units once a day at bedtime Novolog-8 [id number] Mounjaro-Stopped Mounjaro 3 weeks prior to surgery and feels this contributed to her elevating bsg.Restarted yesterday morning Denies hypoglycemia since discharge home Alarm on CGM set at low of 80 and high 250. Treats lows with orange juice and will then try to eat some protein(peanut butter is her go to) States she calls Frances [facility] pharmacy, with elevated alarm triggers for recommendations. If it is after hours or weekends she calls [facility]. URI--started on doxycycline during hospitalization as noted above due to Lyme results. Influenza A/B RSV SARS-COV2, PCR collected in PCP office--NEGATIVE. Pt denies increased sob, congestion, chest tightness, fever today. Occasional chills. Ongoing runny nose, post nasal drip and sore,scratchy throat. Denies issues or difficulty swallowing or eating, States she had some mild GI upset and feels her medications are the culprit. She took Zofran this morning with relief. Patient has a bottle of zofran in her prn bottles container. Chronic respiratory failure--Wearing oxygen 3 liter via NC 18/04--states it has been 3 liters for approximately 1 year. RECOMMENDATION: Continue to monitor bsg, report episodes of hypoglycemia(<100 symptomatic) or persistent hyperglycemia(>250) Continue management with [facility] pharmacy for DM medication management s/p hospitalizatio Complete course of doxycycline Continue to wear oxygen as directed Continue to take medications as directed-pills pack through [facility] Keep physician follow up to determine next steps to reschedule carotid surgery RNCM follow up call in 1 day Physical Exam: BP 100/74 (BP Site: Right Arm, BP Position: Sitting, BP Cuff Size: Large) | Pulse 92 | Temp 37 C (98.6 F) (Tympanic) | Resp 20 | LMP 03/11/2003 | SpO2 94% Comment: 3 liters Pain 0 Physical Exam Constitutional: Appearance: Normal appearance. She is obese. Cardiovascular: Rate and Rhythm: Normal rate and regular rhythm. Pulses: Normal pulses. Heart sounds: Normal heart sounds. Pulmonary: Effort: Pulmonary effort is normal. Breath sounds: Normal breath sounds. Comments: diminished Abdominal: General: Bowel sounds are normal. Musculoskeletal: Right lower leg: Edema (trace) present. Left lower leg: Edema (trace) present. Skin: General: Skin is warm and dry. Neurological: Mental Status: She is alert and oriented to person, place, and time. Psychiatric: Mood and Affect: Mood normal. Problems/Symptoms: Review of Systems Constitutional: Positive for chills. Negative for appetite change and fever. HENT: Positive for postnasal drip and sore throat. Negative for congestion, sinus pressure, sinus pain and trouble swallowing. Respiratory: Positive for shortness of breath (at baseline). Negative for cough and choking. Cardiovascular: Negative for chest pain and leg swelling. Gastrointestinal: Negative for abdominal pain, constipation, diarrhea, nausea and vomiting. Genitourinary: Negative for frequency and urgency. Skin: Negative. Neurological: Negative for dizziness and light-headedness. Medication Reconciliation: (See medication list) Does patient take medications as ordered: Yes Patient Well Being: PHQ2/9: No questionnaires available. [facility]-10 Completed this Visit: Yes. [facility]-10: Reason Completed: Status post ED visit/hospital admission [facility]-10 ([facility]) Fall Risk Assessment Tool Age 65+: Yes (08/06/231599) Diagnosis (3 or more co-existing): Yes (08/06/231599) Prior history of falls within 3 months: Yes (08/06/231599) Incontinence: No (08/06/231599) Visual impairment: No (08/06/231599) Impaired functional mobility: Yes (08/06/231599) Environmental hazards: Yes (08/06/231599) Poly Pharmacy (4 or more prescriptions - any type): Yes (08/06/231599) Pain affecting level of function: No (08/06/231599) Cognitive impairment: No (08/06/231599) Score - a score of 4 or more is considered at risk for fallin (08/06/231599) [facility]-10 Interventions: Fall education provided, reviewed/provided Fall brochure [...] that will be right for you. DIABETES: -Notify [facility] pharmacy blood sugar is consistently above goal or call [facility] if after hours, weekends orunable to connect with pharmacist. -Hypoglycemia (low blood sugar) action plan: If [...] Reinforced medication regimen. Timing., Dosing., and Purspose. Home Interventions Provided: Reinforced current Plan of Care, including self-management and medication regimen Patient's 'Red Flags': Increased shortness of breath, inability to tolerate or wear oxygen Weight increase to 315 lbs Increased edema Patient Needs to Remember: Call [facility] at with any new or worsening health concerns or problems, red flag symptoms. Referrals Needed: N/a Follow Up: Is there cellular connectivity/connectivity in the home? Yes Does the patient have internet in the home? Yes Patient encouraged to call the intake phone number for all urgent but not emergent issues. Is the patient new to [facility] within the last 30 days? No, Assess appropriateness for upcoming telehealth visits. Cancel telehealth visits & schedule home visit with care master steam yacht(s)as indicated. Provider is in agreement with Plan of Care: Yes Scheduled to follow up with patient in 1 day Eugenie Romero RN 08/06/2023 12:47 PM documented in this encounter Plan of Treatment Upcoming Encounters Date Type Department Care Team (Late st Contact Info) Description 08/07/2023 4:00 PM EST Scheduled Telephone [facility] [place], [address] [place] [address] [facility], Nurse [facility] [address] [place] [address] 09/06/2023 9:00 AM EST Scheduled Telephone [facility], [facility] [address] [place] [address] [facility] Triage 132 [facility] [place] [address] 09/08/2023 10:00 AM EST Office Visit Podiatry [facility] 132 [facility] [place] [address] Frances Arias DPM 132 [facility] [place] [address] 09/13/2023 9:20 AM EST Office Visit Family Practice [address] [place] [address] Galdino Andujar, DO 293 [facility] [place] [address] 09/30/2023 1:00 PM EST Office Visit Family Practice 65 [facility] 293 [place] [address] Galdino Andujar, DO 293 [place] [address] 09/30/2023 1:40 PM EST Office Visit Family Practice 65 [facility] 293 [place] [address] College, Pharmacist [address] [place] [address] 10/20/2023 12:30 PM EST Telemedicine Orthopaedics [facility] 132 [facility] [place] [address] Andrea Paez PA-C [address] [place] [address] 11/11/2023 2:00 PM EST Nurse Only Ancillary 65 [facility] 293 [facility], [place] [address] College, Nurse Annual Wellness Visit [address] [facility] [address] [facility], [place] [address] 01/11/2024 1:00 PM EDT Office Visit Cardiology, [facility] [address] [facility] [place] [address] Marjorie [place] PA-C [address] [place] [address] Scheduled Procedures Name Priority Associated Diagnoses Date/Ti [...] Additional history exists CKD PHOS USE SMARTSET 88407 02/12/202401/24, 01/07/2022, 03/12/2021, Additional history exists Mammogram 04/21/2024 04/21/2023, 01/24, 10/01/2020, Additional history exists Diabetic Eye Exam 05/09/2024 05/09/2023, , 04/14/2021, Additional history exists CKD HGB USE SMARTSET 44731 07/25/202407/25, 03/17/2023, 03/17/2023, Additional history exists Depression [...] Documents on File Type Date Recorded Patient Circle Beveler Expl anation POLST 03/19/2020 4:25 PM POLST [...] the patient have Health Care Power of Librarian Assistant? No Healthcare Agents on File Name Relationship Healthcare Agent Relationship Communication Galdino Camp Other - (no specific identity) Health Care Power of Librarian Assistant Princess Thrashery Other - (no specific identity) Health Care Power of Librarian Assistant Care Teams Dump Motorman Relationship Specialty Start Date End Date Galdino Andujar DO [address] [place] [address] PCP - General Internal Medicine 01/07/22 documented as of this encounter
--- OUTSIDE RECORDS SUMMARY | 2023-09-06 08:07 | External Medical Summary | Summary of Care ---
Author Name Unknown Organization [facility] Address [address] [place] [address] Phone [phone] Care Team Providers Care Federal Mediation Commissioner Name Role Phone Lexii Andujar DO Primary Care Provider [phone] Reason for Visit * Reason Comments eRx-Medication Refill Encounter Details Date Type Department Care Team (Late st Contact Info) Description 08/10/2023 Refill Family Practice [address] [place] [address] [place] [phone] Lexii Andujar DO [address] [place] [address] Restless legs syndrome; Anxiety state Allergies Active Allergy Reactions Criticality Noted Date [...] as of this encounter (statuses as of 08/11/2023) Medications Medication Sig Dispensed Refills Start Date [...] for Dizziness. 30 Tablet 1 2 Active Senna-Time S 8.6-50 MG Oral Tablet (senna-docusate) TAKE 1 TABLET BY MOUTH IN THE MORNING AND AT BEDTIME 60 Tablet 5 3 Active traZODone HCl 100 MG Oral Tablet (Desyrel)Indicatio ns:Primary insomnia TAKE 1 TABLET BY MOUTH AT BEDTIME 30 Tablet 5 3 Active Potassium Chloride Ayleen ER [...] 7.0%-8.0% ([facility]) Inject 8 units with breakfast and 8units lunch and 10 units with dinner + sliding scale 1 units for every 25 units BG > 150. 150 mL 3 3 Active metFORMIN HCl ER 500 MG Oral Tablet Extended Release 24 Hour (Glucophage XR)Indications:Typ e 2 diabetes mellitus with hemoglobin A1c goal of less than 8.0% ([facility]) TAKE 1 TABLET BY MOUTH ONCE DAILY IN THE MORNING 30 Tablet 5 3 Active Furosemide 40 MG Oral Tablet (Lasix)Indications :Chronic diastolic congestive heart failure ([facility]) TAKE 1 AND 1/2 TABLETS BY MOUTH IN THE MORNING AND AT BEDTIME 84 Tablet 5 3 Active Cholecalciferol 25 MCG (1000 UT) Oral Capsule TAKE 1 TABLET BY MOUTH ONCE DAILY IN THE MORNING 30 Capsule 3 Active DULoxetine HCl 30 MG Oral Capsule Delayed Release Particles (Cymbalta)Indicati ons:Fibromyalgia,M ajor depressive disorder, recurrent, moderate ([facility]) TAKE 1 CAPSULE BY MOUTH ONCE DAILY IN THE MORNING 30 Capsule 5 3 Active OneTouch Verio In Vitro Strip (Glucose Blood)Indications: Hypoglycemia,Type 2 diabetes mellitus with stage 3b chronic kidney disease, with long-term current use of insulin ([facility]) Use up to 4 times a day E11.9 in case of dexcom failure 100 Strip 11 3 Active Dexcom G7 Sensor Use as directed. (From [facility]) 0 3 Active Levothyroxine Sodium 200 [...] 7.0%-8.0% ([facility]) INJECT 50 UNITS UNDER THE SKIN IN THE EVENING 60 mL 3 3 Active Additional Information Patient taking differently: INJECT 45 UNITS UNDER THE SKIN IN THE EVENING, Reported on 08/05/2023 Doxycycline Hyclate 100 MG Oral Capsule Take 1 Capsule by mouth in the morning and 1 Capsule before bedtime. 0 3 023 Active Atorvastatin Calcium 20 MG Oral Tablet [...] BEDTIME 60 Tablet 0 3 023 Discontinued documented as of this encounter (statuses as of 08/11/2023) Active Problems Problem Noted Date Diagnosed Date Body mass index (BMI) of 45.0 to 49.9 in adult 1 10/08/2022 Overview: Per Obesity protocol - Per Obesity Taxonomy ICD-10 update of inactive term DM peripheral angiopathy 07/13/2023 Last Assessment & Plan: Now followed by vascular, reports upcoming carotid surgery at [facility]. She states she has rx for atorvastatin and plavix to black pickler at pharmacy. 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 Atherosclerosis of [place] co ronary artery without angina pectoris 12/31/2021 [...] Assessment & Plan: Home PT to start [place] filter in place 08/19/2014 History of pulmonary [...] rx evidently given by vascular, has to black pickler rx documented as of this encounter (statuses as of 08/11/2023) Resolved Problems Problem Noted Date Diagnosed Date [...] as of this encounter (statuses as of 08/11/2023) Immunizations Name Administration Dates Next Due COVID-19 mRNA, LNP-s, No Pre serve, 2-Dose Series (DocASAP) 01/08/2021,12/18/2020 COVID-19, LNP-s, No Preserve , Navarro-sucrose, Ages 12+ (Pfizer) 2022,10/01/2021 COVID-19, MRNA-LNP, 23-24, P F, 30 MCG/0.3 mL, 12 YRS AND ABOVE, IM ([employer]-Comirnaty) 07/26/2023 Pneumococcal Conjugate Vacci ne, 20-valent ([id number]) 03/12/2022 Pneumococcal Polysaccharide PPV23 (Pneumovax) 08/22/2009,06/15/2006 SEASONAL [...] Telephone Encounter - Lexii Andujar DO - 08/11/2023 1:55 PM ESTSigned Prescriptions: Disp Refills clonazePAM 0.5 MG Oral Tablet (KlonoPIN) 60 Tab*0 Sig: TAKE 1 TABLET BY MOUTH IN THE MORNING AND AT BEDTIMEAuthorizing Provider: LEXII ANDUJAR * Telephone Encounter - Alvin Darby [facility] - 08/11/2023 10:48 AM EST Pending Prescriptions: Disp Refills clonazePAM 0.5 MG Oral Tablet [Pharmacy Me*60 Tab*0 Sig: TAKE 1 TABLET BY MOUTH IN THE MORNING AND AT BEDTIME * Telephone Encounter - Alvin Darby [facility] - 08/11/2023 10:46 AM EST I have reviewed the patients controlled substance dispensing history in the Prescription Drug Monitoring Program in compliance with the [facility] regulations before prescribing a controlled substance. PDMP checked on 08/11/2023. Pending Prescriptions: Disp Refills clonazePAM 0.5 MG Oral Tablet (KlonoPIN) *60 Tab*0 Sig: TAKE 1 TABLET BY MOUTH IN THE MORNING AND AT BEDTIME Last Visit: 08/05/2023 (in office), 08/04/2023 (telemedicine) Next Visit: 09/13/2023 Date medication was last filled: 07/13 Date medication is due for refill: 08/09 Pharmacy: [facility] [address] Is this request for a controlled [...] Results Review. Please approve if appropriate. Thanks, Alvin Darby, PharmD Clinical Pharmacist [facility](formerly telepharmacy) [phone] 08/11/2023, 10:47 AM documented in this encounter Plan of Treatment Upcoming Encounters Date Type Department Care Team (Late st Contact Info) Description 08/24/2023 2:00 PM EST [facility] Visit [facility] [place], [facility] [address] [place] [address] Vera Capellan, RN [address] [place] [address] 09/06/2023 9:00 AM EST Scheduled Telephone [facility], [facility] [address] [place] [address] [facility] [address] [place] [address] 09/08/2023 10:00 AM EST Office Visit Podiatry [facility] [address] [place] [address] Frances Arias DPM [address] [place] [address] 09/13/2023 9:20 AM EST Office Visit Family Practice 65 [facility] 293 [place] [phone] Lexii Andujar, DO 293 [place] [address] 09/30/2023 1:00 PM EST Office Visit Family Practice 65 [facility] 293 [place] [phone] Lexii Andujar, DO 293 [place] [address] 09/30/2023 1:40 PM EST Office Visit Family Practice 65 [facility] 293 [place] [phone] [place], Pharmacist [address] [place] [address] 10/20/2023 12:30 PM EST Telemedicine Orthopaedics [facility] 132 [facility] [place] [address] Andrea Paez PA-C [address] [place] [address] 11/11/2023 2:00 PM EST Nurse Only Ancillary 65 [facility] 293 [facility], [place] [address] College, Nurse Annual Wellness Visit [address], [place] [address] 01/11/2024 1:00 PM EDT Office Visit Cardiology, [facility] [address] [place] [address] aMrjorie [place] PA-C [address] [place] [address] Scheduled Procedures Name Priority Associated Diagnoses Date/Ti [...] Additional history exists CKD PHOS USE SMARTSET 04325 02/12/202401/24, 01/07/2022, 03/12/2021, Additional history exists Mammogram 04/21/2024 04/21/2023, 01/24, 10/01/2020, Additional history exists Diabetic Eye Exam 05/09/2024 05/09/2023, , 04/14/2021, Additional history exists CKD HGB USE SMARTSET 16016 07/25/202407/25, 03/17/2023, 03/17/2023, Additional history exists Depression [...] on File Type Date Recorded 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 No Healthcare Agents on File Name Relationship Healthcare Agent Relationship Communication Lexii Camp Other - (no specific identity) Health Care Power of Police And Fire Dispatcher Princess Allen Other - (no specific identity) Health Care Power of Police And Fire Dispatcher Care Teams Federal Mediation Commissioner Relationship Specialty Start Date End Date Lexii Andujar DO [address] [place] [address] PCP - General Internal Medicine 01/07/22 documented as of this encounter
--- OUTSIDE RECORDS SUMMARY | 2023-09-06 08:07 | External Medical Summary | Summary of Care ---
Author Name Unknown Organization [facility] Address [address] [place] [address] Phone [phone] Care Team Providers Care Learning Support Resource Room Teacher Name Role Phone Galdino Andujar DO Primary Care Provider [phone] Reason for Visit * Reason Comments Dosage Adjustment In Person (Anticoag Cl inic) Medication Management Encounter Details Date Type Department Care Team (Late st Contact Info) Description 08/05/2023 1:00 PM [facility] Pharmacy Family Practice 65 [facility] [address] [place] [address] [place], Pharmacist [address] [address] Encounter for long-term (current) use of medications* Allergies Active Allergy Reactions Criticality Noted Date [...] as of this encounter (statuses as of 08/05/2023) Medications Medication Sig Dispensed Refills Start Date [...] of 7.0%-8.0% ([facility]) Inject 6 with breakfast and lunch and 8 units with dinner + sliding scale 1 [...] use of insulin ([facility]) Use up to 4 times a day E11.9 in case of dexcom failure 100 Strip 11 3 Active Dexcom G7 Sensor Use as directed. (From [facility]) 0 3 Active Levothyroxine Sodium 200 MCG [...] Oral Tablet (Levoxyl)Indication s:Hyperparathyroidi sm, secondary renal ([facility]) Take 1 Tablet by mouth daily [...] AT BEDTIME 60 Tablet 0 3 Active Mounjaro 5 MG/0.5ML Subcutaneous Solution [...] goal of 7.0%-8.0% ([facility]) INJECT 50 UNITS UNDER THE SKIN IN THE EVENING 60 mL 3 3 Active Additional Information Patient taking differently: INJECT 45 UNITS UNDER THE SKIN IN THE EVENING, Reported on 08/05/2023 metOLazone 2.5 MG Oral Tablet (Zaroxolyn) Take 1 Tablet (2.5 mg) by mouth daily as needed (leg edema). Do not take unless instructed by provider 15 Tablet 5 2 08/05/20 Discontinu ed(Medicat ion List Clean Up) Ondansetron HCl 4 MG Oral TabletIndications:V ertigo Take 1 Tablet (4 mg) by mouth every 6 hours as needed for Nausea. 90 Tablet 6 2 08/05/20 Discontinu ed(Medicat ion List Clean Up) documented as of this encounter (statuses as of 08/05/2023) Active Problems Problem Noted Date Diagnosed Date DM peripheral angiopathy 07/13/2023 Last Assessment & Plan: Now followed by vascular, reports upcoming carotid surgery at [facility] [place]. She states she has rx for atorvastatin and plavix to brain picker at pharmacy. 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 Atherosclerosis of [place] co ronary artery without angina pectoris 12/31/2021 [...] rx evidently given by vascular, has to brain picker rx documented as of this encounter (statuses as of 08/05/2023) Resolved Problems Problem Noted Date Diagnosed Date [...] as of this encounter (statuses as of 08/05/2023) Immunizations Name Administration Dates Next Due COVID-19 mRNA, LNP-s, No Pre serve, 2-Dose Series ([facility]) 01/08/2021,12/18/2020 COVID-19, LNP-s, No Preserve , Navarro-sucrose, Ages 12+ (Pfizer) 2022,10/01/2021 COVID-19, MRNA-LNP, 23-24, P F, 30 MCG/0.3 mL, 12 YRS AND ABOVE, IM ([facility]) 07/26/2023 Pneumococcal Conjugate Vacci ne, 20-valent ([id number]) 03/12/2022 Pneumococcal Polysaccharide PPV23 (Pneumovax) 08/22/2009,06/15/2006 SEASONAL [...] as of this encounter Progress Notes * Henny Duong, Frances Valle, [facility] - 08/05/2023 8:33 AM EST Medication Therapy Disease [facility] - Medication Reconciliation Stephanie Camp is an 68 year old being seen for medication reconciliation. Prescription insurance information: LEXIE Pino Do you have any other prescription coverage: Yes, dual eligible Preferred pharmacy: [facility] [x] Problem list reviewed [x] Allergies reviewed and updated if needed [x] Drug interaction check completed [x] HEDIS list addressed Immunizations: Up to Date Date of Hospital Admission/Primary Diagnosis: [facility] [place] 08/02/23 - hyperglycemia Date of Discharge from Hospital: 08/04/23 Medication changes during admission/on discharge: Added: doxycycline 100mg twice daily for 10 days Modified: increased Novolog Discontinued: none Does the patient currently have all of their medications in their home?: Yes Does patient have any troubles obtaining medications?: No Medication Organization/Adherence: Has home care nurse or caregiver: no Patient uses a pill box? Yes, refill(s) completed by pharmacist When you are at home, how often do you miss doses of medications? Less than once a week Reports specifically missing this morning's medications due to falling asleep and then having to [place] to leave How difficult is it for you to pay for your medications? Not difficult at all How often do you experience side effects from your medications? Less than once a week Reports specifically drowsiness due to gabapentin (noon dose) Labs/Vitals/Risk Scores: The ASCVD Risk score (Marylu FRANK, et al., 2019) failed to calculate for the following reasons: The patient has a prior [place] or stroke diagnosis BP Readings from Last 3 Encounters: 07/26/23 116/60 07/25/23 134/72 07/12/23 134/76 Recent Labs Units 07/25/23 0000 03/05/23 0000 02/11/23 1131 HEMOGLOBIN A1C - [facility] % -- -- 7.7* HEMOGLOBIN, [id number] 9.2* 7.1 -- Recent Labs Units 07/25/23 0000 03/17/23 1237 12/08/22 1515 ESTIMATED GLOMERULAR FILTRATION RATE - [facility] mL/min -- 35* 33* EGFR-OUTSIDE LAB ML/MIN 27.7 -- -- Serum creatinine: 1.84 mg/dL (A) 07/25/23 0000 Estimated creatinine clearance: 40.9 mL/min (A) Assessment & Plan: Medication discrepancies identified: added doxycycline to med list from hospital from [place]. Dose/frequency of medications appropriate for current renal function? no; patient taking ibuprofen at home for pain Other medication problems identified: hyperglycemia - addressed in MTM note Patient education provided: none Referral pended for follow up management of: N/A Summary- Changes & Recommendations: Med rec completed with patient. Repeat med rec visit in 1 year Frances Huerta [facility] Clinical Pharmacist - General Practice Medication Therapy Management Clinic 08/05/2023, 8:33 AM documented in this encounter Plan of Treatment Upcoming Encounters Date Type Department Care Team (Late st Contact Info) Description 08/06/2023 2:00 PM EST [facility] Visit [facility], [facility] [address] [place] [address] [facility], Nurse [facility] [address] [place] [address] 08/08/2023 2:00 PM EST Nurse Only Ancillary [address] [place] [address] [place], Nurse Annual Wellness Visit [address] [place] [address], [place] [address] 09/06/2023 9:00 AM EST Scheduled Telephone [facility], [facility] [address] [place] [address] [facility] Nurse Triage [address] [place] [address] 09/08/2023 10:00 AM EST Office Visit Podiatry [facility] [address] [place] [address] Frances Arias DPM 132 [facility] [place] [address] 09/13/2023 9:20 AM EST Office Visit Family Practice [address] [place] [address] 293 [place] [address] Galdino Andujar, 293 [place] [address] 09/30/2023 1:00 PM EST Office Visit Family Practice 65 [facility] 293 [place] [phone] Galdino Andujar, DO 293 [place] [address] 09/30/2023 1:40 PM EST Office Visit Family Practice 65 [facility] 293 [place] [phone] College, Pharmacist [address] [place] [address] 10/20/2023 12:30 PM EST Telemedicine Orthopaedics [facility] [address] [place] [address] Andrea Paez PA-C [address] [place] [address] 01/11/2024 1:00 PM EDT Office Visit Cardiology, [facility] [address] [place] [address] Marjorie Powell PA-C 132 [facility] [place] [address] Scheduled Procedures Name Priority Associated Diagnoses Date/Ti me COLONOSCOPY FLEXIBLE PROXIMAL DIAGNOSTIC Recall Colon cancer screening Health Maintenance Due Date Last Done Comments Cologuard 2000 Fecal Occult Blood Test 2000 Sigmoidoscopy 2000 Hepatitis B (1 of 3 - Risk 3-dose series) 2015 Albumin/Creatinine Ratio 11/01/2023 023, 01/07/2022, 05/24/2019, Additional history exists Diabetic Foot Exam 11/01/2023 11/01/2022, 0 01/07/2022, 01/14/2021, Additional history exists TSH 11/01/2023 11/01/2022, 12/25, 12/25/2020, Additional history exists GFR 01/24/2024 07/25/2023, 02/25, 12/08/2022, Additional history exists HbA1c 01/24/2024 07/25/2023, 02/24, 02/11/2023, Additional history exists CKD PHOS USE SMARTSET 58084 02/12/202401/24, 01/07/2022, 03/12/2021, Additional history exists Mammogram 04/21/2024 04/21/2023, 01/24, 10/01/2020, Additional history exists Diabetic Eye Exam 05/09/2024 05/09/2023, , 04/14/2021, Additional history exists CKD HGB USE SMARTSET 91494 07/25/202407/25, 03/17/2023, 03/17/2023, Additional history exists Depression Screening 07/26/2024 07/26/2023, 06/12/20 18 Colonoscopy 02/17/2026 02/18/2016, 01/25, 01/28/2006, Additional history [...] Documents on File Type Date Recorded Patient 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 No Healthcare Agents on File Name Relationship Healthcare Agent Relationship Communication Galdino Camp Other - (no specific identity) Health Care Power of Pre Parole Counseling Aide Princess Other - (no specific identity) Health Care Power of Pre Parole Counseling Aide Care Teams Learning Support Resource Room Teacher Relationship Specialty Start Date End Date Galdino Andujar DO [address] [place] [address] PCP - General Internal Medicine 01/07/22 documented as of this encounter
--- OUTSIDE RECORDS SUMMARY | 2023-09-06 08:07 | External Medical Summary | Summary of Care ---
Author Name Unknown Organization [facility] Address [address] [place] [address] Phone [phone] Care Team Providers Care House Mother Name Role Phone Galdino Andujar DO Primary Care Provider [phone] Reason for Visit * Reason Onset Date Comments Scan To Read 05/09/2023 Encounter Details Date Type Department Care Team (Late st Contact Info) Description 05/09/2023 Telephone Family Practice 65 [facility] [address] [place] [address] Galdino Andujar DO [address] [place] [address] Scan To Read Allergies Active Allergy Reactions Criticality Noted Date [...] as of this encounter (statuses as of 08/08/2023) Medications Medication Sig Dispensed Refills Start Date [...] 90mg daily. 30 Capsule 5 04/22/2023 Active documented as of this encounter (statuses as of 08/08/2023) Active Problems Problem Noted Date Diagnosed Date DM peripheral angiopathy 07/13/2023 Last Assessment & Plan: Now followed by vascular, reports upcoming carotid surgery at [facility]. She states she has rx for atorvastatin and plavix to cotton picker at pharmacy. 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 Atherosclerosis of [place] co ronary artery without angina pectoris 12/31/2021 [...] Assessment & Plan: Home PT to start [place] filter in place 08/19/2014 History of pulmonary [...] rx evidently given by vascular, has to cotton picker rx documented as of this encounter (statuses as of 08/08/2023) Resolved Problems Problem Noted Date Diagnosed Date [...] as of this encounter (statuses as of 08/08/2023) Immunizations Name Administration Dates Next Due COVID-19 mRNA, LNP-s, No Pre serve, 2-Dose Series (Pfizer) 01/08/2021,12/18/2020 COVID-19, LNP-s, No Preserve , Navarro-sucrose, Ages 12+ (Pfizer) 2022,10/01/2021 Pneumococcal Conjugate Vacci ne, 20-valent ([id number]) 03/12/2022 Pneumococcal Polysaccharide PPV23 (Pneumovax) 08/22/2009,06/15/2006 SEASONAL [...] Miscellaneous Notes * Telephone Encounter - Ricardo Mathis MD - 05/09/2023 5:26 PM EDT Retinal Scan Imaging Stephanie Camp [id number] Retinal Scan Interpretation: There is no retinopathy in both eyes Diabetes Retinal Imaging Care Plan: The retinal scan results are normal - I will forward this encounter to the Ophthalmology DM Letter Pool [[id number]], they will send a normal retinal scan letter to the patient, and the patient will be seen back for a yearly scan. Ricardo Mathis MD 05/09/2023 5:26 PM * Telephone Encounter - Rosario Saldana RT (R) - 05/09/2023 3:11 PM EDT A Diabetic Telemed Eye image was taken and requires your interpretation for Dr Andujar. Please [place]ina[place] for image. Patient prefers to be seen at [facility] if a follow-up appointment is needed. documented in this encounter Plan of Treatment Upcoming Encounters Date Type Department Care Team (Late st Contact Info) Description 08/24/2023 2:00 PM EST Home Visit [facility], [facility] [address] [place] [address] Vera Capellan, RN [address] [place] [address] 09/06/2023 9:00 AM EST Scheduled Telephone [facility], [facility] [address] [place] [address] [facility] Nurse Triage 132 [facility] [place] [address] 09/08/2023 10:00 AM EST Office Visit Podiatry [facility] 132 [facility] [place] [address] Frances Arias, ELENA [facility] [address] 09/13/2023 9:20 AM EST Office Visit Family Practice [address] [place] [phone] Galdino Andujar, DO 293 [place] [address] 09/30/2023 1:00 PM EST Office Visit Family Practice 65 [facility] 293 [facility], [place] [phone] Galdino Andujar, DO 293 [place] [address] 09/30/2023 1:40 PM EST Office Visit Family Practice [address], [place] [phone] College, Pharmacist [address] [place] [address] 10/20/2023 12:30 PM EST Telemedicine Orthopaedics [facility] 132 [facility] [place] [address] Andrea Paez PA-C [address] [place] [id number] 11/11/2023 2:00 PM EST Nurse Only Ancillary [address], [place] [address] College, Nurse Annual Wellness Visit [address] [address] 01/11/2024 1:00 PM EDT Office Visit Cardiology, [facility] [address] [place] [address] Marjorie Powell PA-C [address] [place] [address] Scheduled Procedures Name Priority Associated Diagnoses [...] Additional history exists CKD PHOS USE SMARTSET 52089 02/12/202401/24, 01/07/2022, 03/12/2021, Additional history exists Mammogram 04/21/2024 04/21/2023, 01/24, 10/01/2020, Additional history exists Diabetic Eye Exam 05/09/2024 05/09/2023, , 04/14/2021, Additional history exists CKD HGB USE SMARTSET 31234 07/25/202407/25, 03/17/2023, 03/17/2023, Additional history exists Depression Screening 07/26/2024 07/26/2023, 06/12/20 18 Albumin/Creatinine Ratio 08/05/20242 023, 11/01/2022, 01/07/2022, Additional history exists Colonoscopy [...] on File Type Date Recorded Patient Lockstitch Lining Maker Expl anation POLST 03/19/2020 4:25 PM POLST [...] the patient have Health Care Power of Railroad Repairer? No Healthcare Agents on File Name Relationship Healthcare Agent Relationship Communication Galdino Camp Other - (no specific identity) Health Care Power of Railroad Repairer Princess Allen Other - (no specific identity) Health Care Power of Railroad Repairer Care Teams House Mother Relationship Specialty Start Date End Date Galdino nAdujar DO [address] [place] [address] PCP - General Internal Medicine 01/07/22 documented as of this encounter
--- OUTSIDE RECORDS SUMMARY | 2023-09-06 08:08 | External Medical Summary ---
Author Name Unknown Address Unknown Organization K01:[facility] [place] - [address] [place] [address] Laboratory Report Ordering Provider Test Date Status JAG SHULTZ 08/05/2023 14:06:28 Final Normal: <30 mg/g creatinine< br/>High: 30-300 mg/g creatinine
Very High: >300 mg/g creatinine
Nephrotic: >2200 mg/g creatinine Observation Date Value Abnormality Reference (Units ) Status Albumin, Urine 08/05/2023 14:06:28 1.43 (mg/dL) Final Creatinine, Urine 08/05/2023 14:06:28 103 (mg/dL) Final Albumin/Creatinine [Mass Ratio] in Urine 08/05/2023 14:06:28 14 <30 (mg/g Creat) Final Performing Location [facility] [place] - [address] [place] [address]
--- OUTSIDE RECORDS SUMMARY | 2023-09-06 08:08 | External Medical Summary | Summary of Care ---
Author Name Unknown Organization [facility] Address [address] [place] [address] Phone [phone] Care Team Providers Care Carpet Inspector Name Role Phone ZiaandrewsGaldino DO Primary Care Provider [phone] Reason for Visit * Reason Onset Date Comments Appointment 08/02/2023 Encounter Details Date Type Department Care Team (Late st Contact Info) Description 08/02/2023 Telephone [facility], [facility] [phone] Simi [place], [facility] A R Collections Rep Appointment Allergies Active Allergy Reactions Criticality Noted [...] as of this encounter (statuses as of 08/02/2023) Medications Medication Sig Dispensed Refills Start Date [...] for Nausea. 90 Tablet 6 08/25/2022 Active Senna-Time S 8.6-50 MG Oral [...] ([facility]) Inject 6 with breakfast and lunch and 8 units with dinner + sliding scale 1 units for every 25 units BG > 150. 150 mL 3 05/16/2023 Active metFORMIN HCl ER 500 MG Oral Tablet Extended Release 24 Hour (Glucophage XR)Indications:Type 2 diabetes mellitus with hemoglobin A1c goal of less than 8.0% ([facility]) TAKE 1 TABLET BY MOUTH ONCE DAILY [...] insulin ([facility]) Use up to 4 times a day E11.9 in case of dexcom failure 100 Strip 11 05/31/2023 Active Dexcom G7 Sensor Use as directed. (From Jose Daniel) 0 06/01/2023 Active Levothyroxine Sodium 200 MCG [...] 07/20/2023 Active Plavix 75 MG Oral Tablet 1 Tablet. 0 07/11/2023 Active Aspirin 81 MG Oral Tablet Delayed Release Take 1 Tablet by mouth in the morning. 0 Active Tresiba FlexTouch 100 UNIT/ML Subcutaneous Solution Pen-injector (Insulin Degludec)Indication s:Type 2 diabetes mellitus with hemoglobin A1c goal of 7.0%-8.0% ([facility]) INJECT 40 UNITS UNDER THE SKIN IN THE EVENING 60 mL 3 07/26/2023 Active documented as of this encounter (statuses as of 08/02/2023) Active Problems Problem Noted Date Diagnosed Date DM peripheral angiopathy 07/13/2023 Last Assessment & Plan: Now followed by vascular, reports upcoming carotid surgery at [facility]. She states she has rx for atorvastatin and plavix to apple picker at pharmacy. 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 Atherosclerosis of [place] co ronary artery without angina pectoris [...] Morbid obesity with BMI of 50.0-59.9, adult 1010/2016 Overview: Per Obesity protocol #1 - Per Obesity Taxonomy ICD-10 update of inactive term Gastroesophageal reflux disease with esophagitis 03/04/2017 Last Assessment & Plan: Continue omeprazole Restless legs syndrome 03/25/2016 Last Assessment & Plan: Continue Requip Fibromyalgia 02/02/2016 Last Assessment & Plan: Continue tramadol Abnormality of gait 02/02/2016 Last Assessment & Plan: Home PT to start [place] filter in place 08/19/2014 History of pulmonary [...] rx evidently given by vascular, has to apple picker rx documented as of this encounter (statuses as of 08/02/2023) Resolved Problems Problem Noted Date Diagnosed Date [...] as of this encounter (statuses as of 08/02/2023) Immunizations Name Administration Dates Next Due COVID-19 mRNA, LNP-s, No Pre serve, 2-Dose Series ([facility]) 01/08/2021,12/18/2020 COVID-19, LNP-s, No Preserve , Navarro-sucrose, Ages 12+ (Pfizer) 2022,10/01/2021 COVID-19, MRNA-LNP, 23-24, P F, 30 MCG/0.3 mL, 12 YRS AND ABOVE, IM ([facility]) 07/26/2023 Pneumococcal Conjugate Vacci ne, 20-valent ([id number]) 03/12/2022 Pneumococcal Polysaccharide PPV23 (Pneumovax) 08/22/2009,06/15/2006 SEASONAL [...] Miscellaneous Notes * Telephone Encounter - Simi Land, [facility] A R Collections Rep - 08/02/2023 9:00 AM EST Outbound call to patient made aware that Vera may be there around 10:00 am. Patient stated she did not have her surgery he sugar was up to 400 and is not sure when she is going to have the surgery now. Simi Land, ELISSA documented in this encounter Plan of Treatment Upcoming Encounters Date Type Department Care Team (Late st Contact Info) Description 08/03/2023 10:00 AM EST [facility] [address] [place] [address] Vera Capellan RN 132 [facility] [place] [address] 08/04/2023 1:40 PM EST Telemedicine Family Practice 65 [facility] 293 [facility], [place] [address] College, Pharmacist [address] [place] [address] 08/08/2023 2:00 PM EST Nurse Only Ancillary 65 [facility] 293 [facility], [place] [address] College, Nurse Annual Wellness Visit [address] [place] [address] 09/06/2023 9:00 AM EST Scheduled Telephone [facility], [facility] 132 [facility] [place] [address] [facility] Nurse Triage 132 [facility] [place] [address] 09/30/2023 1:00 PM EST Office Visit Family Practice 65 [facility] 293 [place] [phone] Galdino Andujar, 293 [place] [address] 09/30/2023 1:40 PM EST Office Visit Family Practice 65 [facility] 293 [facility], [place] [address] College, Pharmacist [address] [place] [address] 10/20/2023 12:30 PM EST Telemedicine Orthopaedics [facility] 132 [facility] [place] [address] Andrea Paez PA-C [address] [place] [address] 01/11/2024 1:00 PM EDT Office Visit Cardiology, [facility] 132 [facility] [place] [address] Marjorie Powell PA-C 132 [facility] [place] [address] Scheduled Procedures Name Priority Associated Diagnoses Date/Ti [...] Additional history exists CKD PHOS USE SMARTSET 54626 02/12/202401/24, 01/07/2022, 03/12/2021, Additional history exists Mammogram 04/21/2024 04/21/2023, 01/24, 10/01/2020, Additional history exists Diabetic Eye Exam 05/09/2024 05/09/2023, , 04/14/2021, Additional history exists CKD HGB USE SMARTSET 44581 07/25/202407/25, 03/17/2023, 03/17/2023, Additional history exists Depression [...] Documents on File Type Date Recorded Patient Mortgage Consultant Expl anation POLST 03/19/2020 4:25 PM [...] the patient have Health Care Power of Puller Through? No Healthcare Agents on File Name Relationship Healthcare Agent Relationship Communication Galdino Camp Other - (no specific identity) Health Care Power of Puller Through Princess Other - (no specific identity) Health Care Power of Puller Through Care Teams Carpet Inspector Relationship Specialty Start Date End Date Galdino Andujar DO 293 [place] [address] PCP - General Internal Medicine 01/07/22 documented as of this encounter
--- OUTSIDE RECORDS SUMMARY | 2023-09-06 08:08 | External Medical Summary | Summary of Care ---
Author Name Unknown Organization [facility] Address [address] [place] [address] Phone [phone] Care Team Providers Care Code Clerk Name Role Phone Galdino Andujar DO Primary Care Provider [phone] Reason for Visit * Reason Comments Dosage Adjustment Via Phone (anticoag Cl inic) Diabetes Follow-Up Encounter Details Date Type Department Care Team (Late st Contact Info) Description 08/04/2023 1:40 PM EST Telemedicine Family Practice 65 [facility], [place] [address] [place] [phone] [place], Pharmacist [address] [address] Type 2 diabetes mellitus with hemoglobin A1c goal of 7.0%-8.0% ([facility])* Allergies Active Allergy Reactions Criticality Noted Date [...] as of this encounter (statuses as of 08/04/2023) Medications Medication Sig Dispensed Refills Start Date End Date Status ONETOUCH [place]UL[place] LANCETS 33G [facility] Check blood sugars [...] for Nausea. 90 Tablet 6 2 Active Senna-Time S 8.6-50 MG Oral [...] of 7.0%-8.0% ([facility]) Inject 6 with breakfast and lunch [...] Dexcom G7 Sensor Use as [facility]. [facility] 0 3 Active Levothyroxine Sodium 200 MCG [...] 3 Active Plavix 75 MG Oral Tablet 1 Tablet. 0 3 Active Aspirin 81 MG Oral Tablet Delayed Release Take 1 Tablet by mouth in the morning. 0 Active Tresiba FlexTouch 100 UNIT/ML Subcutaneous Solution Pen-injector (Insulin Degludec)Indication s:Type 2 diabetes mellitus with hemoglobin A1c goal of 7.0%-8.0% (HCC) INJECT 50 UNITS UNDER THE SKIN IN THE EVENING 60 mL 3 3 Active Tresiba FlexTouch 100 UNIT/ML Subcutaneous Solution Pen-injector (Insulin Degludec)Indication s:Type 2 diabetes mellitus with hemoglobin A1c goal of 7.0%-8.0% (HCC) INJECT 40 UNITS UNDER THE SKIN IN THE EVENING 60 mL 3 3 08/04/20 23 Discontinu ed(Refill) documented as of this encounter (statuses as of 08/04/2023) Active Problems Problem Noted Date Diagnosed Date DM peripheral angiopathy 07/13/2023 Last Assessment & Plan: Now followed by vascular, reports upcoming carotid surgery at [facility]. She states she has rx for atorvastatin and plavix to potato picker at pharmacy. 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 Atherosclerosis of [place] co ronary artery without angina pectoris 12/31/2021 [...] Assessment & Plan: Home PT to start [place] filter in place 08/19/2014 History of pulmonary [...] rx evidently given by vascular, has to potato picker rx documented as of this encounter (statuses as of 08/04/2023) Resolved Problems Problem Noted Date Diagnosed Date [...] Overview: Pt has booklet. Other allergic rhinitis 12/31/20032018 Overview: ICD-10 update of inactive term HTN, goal below 140/90 04/09/200310/22 Overview: Per HTN Taxonomy. DM type 2, not at goal 05/29/200207/10 Overview: Modified per Diabetes protocol #14. TENOSYNOVITIS FOOT-ANKLE 12/26/2001 Goiter 01/13/2000 06/28/2011 BACKACHE NOS 08/26/1999 05/24/2017 OBESITY, UNSPECIFIED 08/26/1999 010 Overview: Per Obesity Taxonomy Perforation of intestine Overview: COLON Diverticulitis documented as of this encounter (statuses as of 08/04/2023) Immunizations Name Administration Dates Next Due COVID-19 mRNA, LNP-s, No Pre serve, 2-Dose Series (Contractually) 01/08/2021,12/18/2020 COVID-19, LNP-s, No Preserve , Navarro-sucrose, Ages 12+ (Pfizer) 2022,10/01/2021 COVID-19, MRNA-LNP, 23-24, P F, 30 MCG/0.3 mL, 12 YRS AND ABOVE, IM (PFIZER-Comirnaty) 07/26/2023 Pneumococcal Conjugate Vacci ne, 20-valent ([id number]) 03/12/2022 Pneumococcal Polysaccharide PPV23 (Pneumovax) 08/22/2009,06/15/2006 SEASONAL [...] Progress Notes * Frances Ellis, [facility] - 08/04/2023 2:14 PM EST Images from the original note were not included. Diabetes telephone follow - up 08/04/2023 Patient Phone Numbers - Reason for contacting patient: Following up with patient on hospitalization. Has been off mounjaro for 2 weeks now due to potential surgery (which wasn't done due to high sugars). - Current diabetic medications: Novolog - 6 units with breakfast, 6 units lunch and 8 units with supper + SS 1:25 >150 before meals --> increased by hospital to 8 units, at breakfast and lunch and 10 units at supper Increase Tresiba 40 units at bedtime Mounjaro 2.5mg weekly on Tuesday (increase to 5mg weekly on 07/27) Metformin ER 500 mg 1 tablet daily eGFR 33 mL/min 12/08/22 - Glucose review/ SMBG: Breakfast: pre meal 269 when she got up. Lunch: post lunch 322 Therapy Management Assessment/Plan: 1) Diabetes: Advised patient to restart mounjaro and increase tresiba. Novolog - 8 units with breakfast, 8 units lunch and 10 units with supper + SS 1:25 >150 before meals Increase Tresiba 45 units at bedtime today Restart Mounjaro 5mg weekly on Fridays - starting tomorrow Metformin ER 500 mg 1 tablet daily eGFR 33 mL/min 12/08/22 Follow up in 1 day Frances Huerta [facility], Pharm D Clinical Pharmacist Medication Therapy Management [facility] 08/04/2023, 2:15 PM documented in this encounter Plan of Treatment Upcoming Encounters Date Type Department Care Team (Late st Contact Info) Description 08/05/2023 1:00 PM EST Pharmacy Family Practice [address] [phone] [place], Pharmacist [address] [address] 08/05/2023 1:40 PM EST Office Visit Family Practice [address] [place] [phone] Galdino Andujar DO [address] [place] [address] 08/06/2023 2:00 PM EST Home Visit [facility], [facility] 132 [facility] [place] [address] [facility], Nurse [facility] 132 [facility] [place] [address] 08/08/2023 2:00 PM EST Nurse Only Ancillary [address], [place] [address] [place], Nurse Annual Wellness Visit [address], [place] [address] 09/06/2023 9:00 AM EST Scheduled Telephone [facility], [facility] 132 [facility] [place] [address] [facility] Nurse Triage 132 [facility] [place] [address] 09/30/2023 1:00 PM EST Office Visit Family Practice 65 [facility] 293 [facility], [place] [phone] Galdino Andujar, 293 [facility] [place], [place] [address] 09/30/2023 1:40 PM EST Office Visit Family Practice 65 [facility] 293 [facility], [place] [address] [place], Pharmacist [address] [place] [address] 10/20/2023 12:30 PM EST Telemedicine Orthopaedics [facility] 132 [facility] [place] [address] Andrea Paez PA-C [address] [place] [address] 01/11/2024 1:00 PM EDT Office Visit Cardiology, [facility] 132 [facility] [place] [address] Marjorie Powell PA-C [address] [place] [address] Scheduled Procedures Name Priority Associated Diagnoses Date/Ti [...] Additional history exists CKD PHOS USE SMARTSET 32151 02/12/202401/24, 01/07/2022, 03/12/2021, Additional history exists Mammogram 04/21/2024 04/21/2023, 01/24, 10/01/2020, Additional history exists Diabetic Eye Exam 05/09/2024 05/09/2023, , 04/14/2021, Additional history exists CKD HGB USE SMARTSET 15327 07/25/202407/25, 03/17/2023, 03/17/2023, Additional history exists Depression [...] A1c goal of 7.0%-8.0% ([facility])- Primary documented in this encounter Advance Directives Documents on File Type Date Recorded Patient Home Lending Officer Expl anation POLST 03/19/2020 4:25 PM [...] patient have Health Care Power of Business Ethics Professor? No Healthcare Agents on File Name Relationship Healthcare Agent Relationship Communication Galdino Camp Other - (no specific identity) Health Care Power of Business Ethics Professor Princess Other - (no specific identity) Health Care Power of Business Ethics Professor Care Teams Code Clerk Relationship Specialty Start Date End Date Galdino Andujar DO [address] [place] [address] PCP - General Internal Medicine 01/07/22 documented as of this encounter
--- OUTSIDE RECORDS SUMMARY | 2023-09-06 08:08 | External Medical Summary | Summary of Care ---
Author Name Unknown Organization [facility] Address [address] [facility] [address] Phone [phone] Care Team Providers Care Basket Grader Name Role Phone Galdino Andujar DO Primary Care Provider [phone] Reason for Visit * Reason Onset Date Comments [facility]: Maintenance 08/05/2023 Encounter Details Date Type Department Care Team (Late st Contact Info) Description 08/05/2023 3:00 PM EST Scheduled Telephone [facility], [facility] [address] [place] [address] Coordinator, [facility] [address] [place] [address] Allergies Active Allergy Reactions Criticality Noted Date [...] ([facility]) Inject 6 with breakfast and lunch and 8 units with dinner + sliding scale 1 units for every 25 units BG > 150. 150 mL 3 05/16/2023 Active metFORMIN HCl ER 500 MG Oral Tablet Extended Release 24 Hour (Glucophage XR)Indications:Type 2 diabetes mellitus with hemoglobin A1c goal of less than 8.0% ([facility]) TAKE 1 TABLET BY MOUTH [...] THE EVENING 60 mL 3 08/04/2023 Active documented as of this encounter (statuses as of 08/05/2023) Active Problems Problem Noted Date Diagnosed Date DM peripheral angiopathy 07/13/2023 Last Assessment & Plan: Now followed by vascular, reports upcoming carotid surgery at [facility]. 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 Atherosclerosis of [place] co ronary artery without angina pectoris 12/31/2021 [...] rx evidently given by vascular, has to quill picking machine operator rx documented as of this encounter [...] mRNA, LNP-s, No Pre serve, 2-Dose Series ([place]) 01/08/2021,12/18/2020 COVID-19, LNP-s, No Preserve , Navarro-sucrose, Ages 12+ (Pfizer) 2022,10/01/2021 COVID-19, MRNA-LNP, 23-24, P F, 30 MCG/0.3 mL, 12 YRS AND ABOVE, IM (TrialScope-Comirnat) 07/26/2023 Pneumococcal Conjugate Vacci ne, 20-valent ([id number]) 03/12/2022 Pneumococcal Polysaccharide PPV23 (Pneumovax) 08/22/2009,06/15/2006 SEASONAL [...] encounter Miscellaneous Notes * Telephone Encounter - Eunice De La Torre RN - 08/05/2023 9:35 AM EST Call not made Patient did not have her surgery due to elevated blood sugar in 400's. Has appts today with PCP Dr Andujar and [facility] pharmacy Teams message sent to [facility] Triage Nurse. Aware surgery not completed, and acute RNCM ROSA visit scheduled for weekend, . Should this be cancelled ? Brandie De La Torre RN, BSN [facility] Intake Triage Coordinator [phone] documented in this encounter Plan of Treatment Upcoming Encounters Date Type Department Care Team (Late st Contact Info) Description 08/05/2023 1:00 PM EST Pharmacy Family Practice [address] [place] [address] 293 [place] [address] [place], Pharmacist [address] [place] [address] Medication Therapy Disease [facility] - Medication Reconciliation 08/05/2023 1:40 PM EST Office Visit Family Practice [address] [place] [address] [place] [address] Galdino Andujar, DO 293 [facility] [place] [address] 08/06/2023 2:00 PM EST Home Visit [facility], [facility] [place] [address] [facility], Nurse [facility] [place] [address] 08/08/2023 2:00 PM EST Nurse Only Ancillary [address], [place] [address] [place], Nurse Annual Wellness Visit [address], [place] [address] 09/06/2023 9:00 AM EST Scheduled Telephone [facility], [facility] [place] [address] [facility] Nurse Triage [facility] [address] 09/30/2023 1:00 PM EST Office Visit Family Practice [address] [place] [address] Galdino Andujar, DO 293 [facility], [place] [address] 09/30/2023 1:40 PM EST Office Visit Family Practice [address] [place] [address] [place], Pharmacist [address] [place] [address] 10/20/2023 12:30 PM EST Telemedicine Orthopaedics [facility] 132 [employer] [place] [address] Andrea Paez PA-C [address] [place] [address] 01/11/2024 1:00 PM EDT Office Visit Cardiology, [facility] [address] [place] [address] Marjorie Powell PA-C [address] [place] [address] Scheduled Procedures Name Priority Associated Diagnoses Date/Ti [...] Additional history exists CKD PHOS USE SMARTSET 70152 02/12/202401/24, 01/07/2022, 03/12/2021, Additional history exists Mammogram 04/21/2024 04/21/2023, 01/24, 10/01/2020, Additional history exists Diabetic Eye Exam 05/09/2024 05/09/2023, , 04/14/2021, Additional history exists CKD HGB USE SMARTSET 81722 07/25/202407/25, 03/17/2023, 03/17/2023, Additional history exists Depression [...] Documents on File Type Date Recorded Patient Process Coordinator Expl anation POLST 03/19/2020 4:25 PM [...] the patient have Health Care Power of Wind Science And Planning? No Healthcare Agents on File Name Relationship Healthcare Agent Relationship Communication Galdino Camp Other - (no specific identity) Health Care Power of Wind Science And Planning Princess Allen Other - (no specific identity) Health Care Power of Wind Science And Planning Care Teams Basket Grader Relationship Specialty Start Date End Date Galdino Andujar DO [address] [place] [address] PCP - General Internal Medicine 01/07/22 documented as of this encounter
--- OUTSIDE RECORDS SUMMARY | 2023-09-06 08:08 | External Medical Summary | Summary of Care ---
Author Name Unknown Organization [facility] Address [address] [place] [address] Phone [phone] Care Team Providers [employer] Name Role Phone Galdino Andujar DO Primary Care Provider [phone] Reason for Referral * Evaluate & Treat - Unlimited Visits (Within 10 days (routine)) - Authorized Specialty Diagnoses / Procedures Referred By Ethan chao Referred To Contact Podiatry Diagnoses Toenail deformity Galdino Andujar DO [address] [place] [address] Referral ID Status Reason Start Date Expiration Date Visits Requested Visits Authorized [id number] Authorized Specialty Services Required 3 [phone] Question Answer Referral Priority Within 10 days (routine) Where should this appointment be scheduled? External Which condition are you referring this patient for? Toenail Removal Reason for Visit * Reason Onset Date Comments Hospital Follow-Up Hospital Follow-Up 08/05/2023 Encounter Details Date Type Department Care Team (Latest Contact Info) Description 08/05/2023 1:40 PM EST Office Visit Family Practice [address] [place] [address] [place] [address] Galdino Andujar DO [address] [place] [address] Hyperglycemia*; Type 2 diabetes mellitus with stage 3b chronic kidney disease, with long-term current use of insulin (HCC); 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 3b chronic kidney disease (HCC); Fair[place] filter in place; Recurrent deep vein thrombosis (DVT) of both lower extremities (HCC); Acute cough; Chronic hypoxemic respiratory failure (HCC); ILD (interstitial lung disease) (HCC); Moderate episode of recurrent major depressive disorder (HCC); DM peripheral angiopathy (HCC); Dyslipidemia; Postsurgical hypothyroidism; Toenail deformity; Statin intolerance; Fibromyalgia; Restless legs syndrome; Gastroesophageal reflux disease with esophagitis without hemorrhage; Heparin induced thrombocytopenia (HIT) ([facility]); Carotid artery stenosis, asymptomatic, right; Atherosclerosis of rosebud coronary artery of rosebud heart without angina pectoris; Anxiety state; Hospital discharge follow-up Allergies Active Allergy Reactions Criticality Noted Date [...] ([facility]) Inject 6 with breakfast and lunch and [...] Dexcom G7 Sensor Use as directed. (From [facility]) 0 3 Active Levothyroxine Sodium 200 [...] and 1 Capsule before bedtime. 0 3 08/13/20 23 Active metOLazone 2.5 MG Oral Tablet (Zaroxolyn) Take 1 Tablet (2.5 mg) by mouth daily as needed (leg edema). Do not take unless instructed by provider 15 Tablet 5 2 08/05/20 Discontinu ed(Medicat ion List Clean Up) Ondansetron HCl 4 MG Oral TabletIndications:V ertigo Take 1 Tablet (4 mg) by mouth every 6 hours as needed for Nausea. 90 Tablet 6 2 08/05/20 23 Discontinu ed(Medicat ion List Clean Up) documented as of this encounter (statuses as of 08/05/2023) Active Problems Problem Noted Date Diagnosed Date DM peripheral angiopathy 07/13/2023 Last Assessment & Plan: Now followed by vascular, reports upcoming carotid surgery at [facility]. 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 rx documented as of [...] mRNA, LNP-s, No Pre serve, 2-Dose Series ([employer]) 01/08/2021,12/18/2020 COVID-19, LNP-s, No Preserve , Navarro-sucrose, Ages 12+ ([employer]) 2022,10/01/2021 COVID-19, MRNA-LNP, 23-24, P F, 30 MCG/0.3 mL, 12 YRS AND ABOVE, IM ([employer]) 07/26/2023 Pneumococcal Conjugate Vacci ne, 20-valent ([id number]) 03/12/2022 Pneumococcal Polysaccharide PPV23 (Pneumovax) 08/22/2009,06/15/2006 SEASONAL [...] Reading Time Taken Comments Blood Pressure 118/60 08/05/2023 1:06 PM EST Pulse 92 08/05/2023 1:06 PM EST Temperature 36.1 C (97 F) 08/05/2023 1:06 PM EST Respiratory Rate 16 08/05/2023 1:06 PM EST Oxygen Saturation 96% 08/05/2023 1:06 PM EST 3 LPM Inhaled Oxygen Concentration - - Weight 135.9 kg (299 lb 9.6 oz) 08/05/2023 1:06 PM EST Height 165.1 cm (5' 5") 08/05/2023 1:06 PM EST Body Mass Index 49.86 08/05/2023 1:06 PM EST documented in this encounter Progress Notes * Galdino Andujar, - 08/05/2023 1:46 PM EST SUBJECTIVE: Stephanie Camp is a 68 year old female. Chief Complaint Patient presents with Hospital Follow-Up Hospital Follow-Up Recent Admission: Patient was recently admitted to [facility] . The date of discharge was 08/03/2023. Discharge report received and reviewed. HPI: Patient is a 68 year old female with a history of DM type II, CKD stage III, Diastolic CHF, chronichypoxic respiratory failure, HTN, recurrent DVT, IVC filter, Hyperlipidemia, Statin Intolerance, GERD, right Carotid Artery Stenosis, Lumbar Disc Disease, Restless Leg Syndrome, Sleep Apnea on CPAP, Heparin Induced Thrombocytopenia, and ambulatory dysfunction that is seen for hospital follow up. The patient was admitted for weakness, and fatigue that was present for a few days prior to admission.Patient presented for right carotid stenting and her glucose was over 500. Procedure was canceled and patient was admitted. Lyme testing was equivocal and doxycycline was started for 10 day course. Chronic shortness of breath is unchanged. Glucose improving with insulin adjustments. No chest pain is present. Weight is stable. Nonproductive cough has been present for two days. Patient Active Problem List Diagnosis Code Dyslipidemia E78.5 Postsurgical hypothyroidism E89.0 ELISSA (obstructive sleep apnea) G47.33 Venous insufficiency I87.2 Essential hypertension with goal blood pressure less than 140/90 I10 History of pulmonary embolus (PE) Z86.711 Statin intolerance Z78.[address] Z95.828 Fibromyalgia M79.7 Abnormality of gait R26.9 Restless legs syndrome G25.81 Gastroesophageal reflux disease with esophagitis K21.00 Morbid obesity with BMI of 50.0-59.9, adult ([facility]) E66.01, Z68.43 Controlled substance agreement signed Z79.899 Lumbar radiculopathy M54.16 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 3b chronic kidney disease ([facility]) I13.0, I50.32, N18.32 Hyperparathyroidism, secondary renal ([facility]) N25.81 Vasculitis ([facility]) I77.6 Primary osteoarthritis of left knee M17.12 Spinal stenosis of lumbar region without neurogenic claudication M48.061 Heparin induced thrombocytopenia (HIT) ([facility]) D75.829 Atherosclerosis of rosebud coronary artery without angina pectoris I25.10 Carotid artery stenosis, asymptomatic, right I65.21 Encounter for long-term (current) use of other medications Z79.899 Type 2 diabetes mellitus with hemoglobin A1c goal of less than 8.0% ([facility]) E11.9 Recurrent deep vein thrombosis (DVT) of both lower extremities ([facility]) I82.403 Chronic hypoxemic respiratory failure ([facility]) J96.11 Chronic kidney disease, stage 3b ([facility]) N18.32 ILD (interstitial lung disease) ([facility]) J84.9 Moderate episode of recurrent major depressive disorder ([facility]) F33.1 Primary osteoarthritis of both knees M17.0 Type 2 diabetes mellitus with stage 3b chronic kidney disease, with long-term current use of insulin ([facility]) E11.22, N18.32, Z79.4 Anxiety state F41.1 Sacroiliitis, not elsewhere classified (HCC) M46.1 DM peripheral angiopathy (HCC) E11.51 Current Outpatient Medications Medication Sig Dispense Refill rOPINIRole HCl 2 MG Oral Tablet (Requip) [...] as needed for Dizziness. 30 Tablet 1 Senna-Time S 8.6-50 MG Oral Tablet (senna-docusate) TAKE 1 TABLET BY MOUTH IN THE MORNING AND AT BEDTIME 60 Tablet 5 traZODone HCl 100 MG Oral Tablet (Desyrel) TAKE 1 TABLET BY MOUTH AT BEDTIME 30 Tablet 5 Potassium Chloride Ayleen ER 20 MEQ Oral Tablet Extended Release TAKE 1 TABLET BY MOUTH IN THE MORNING AND AT BEDTIME 60 Tablet 5 Acetaminophen 500 MG Oral Tablet (Tylenol) Take 2 Tablets by mouth in the morning and 2 Tablets at noon and 2 Tablets before bedtime. 100 Tablet 0 Docusate Sodium 100 MG Oral Capsule (Colace) Take 1 Capsule by mouth in the morning and 1 Capsule before bedtime. DULoxetine HCl 60 MG Oral Capsule Delayed Release Particles (Cymbalta) Take 1 Capsule by mouth in the morning. Take with 30mg cap to equal 90mg daily. 30 Capsule 5 NovoLOG FlexPen 100 UNIT/ML Subcutaneous Solution Pen-injector (insulin aspart) Inject 6 with breakfast and lunch and 8 units with dinner + sliding scale 1 units for every 25 units BG > 150. 150 mL 3 metFORMIN HCl ER 500 MG Oral Tablet Extended Release 24 Hour (Glucophage XR) TAKE 1 TABLET BY MOUTHONCE DAILY IN THE MORNING 30 Tablet 5 Furosemide 40 MG Oral Tablet (Lasix) TAKE 1 AND 1/2 TABLETS BY MOUTH IN THE MORNING AND AT BEDTIME 84 Tablet 5 Cholecalciferol 25 MCG (1000 UT) Oral Capsule TAKE 1 TABLET BY MOUTH ONCE DAILY IN THE MORNING 30 Capsule 5 DULoxetine HCl 30 MG Oral Capsule Delayed Release Particles (Cymbalta) TAKE 1 CAPSULE BY MOUTH ONCEDAILY IN THE MORNING 30 Capsule 5 Levothyroxine Sodium 200 MCG Oral Tablet (Levoxyl) TAKE 1 TABLET BY MOUTH ONCE DAILY IN THE [id number] Tablet 5 oxyCODONE HCl 5 MG Oral Tablet (Oxy IR) Take 1 Tablet by mouth every 6 hours as needed for Pain, Severe. 45 Tablet 0 traMADol HCl 50 MG Oral Tablet (Ultram) Take 1 Tablet by mouth every 8 hours as needed for Pain, Severe. 90 Tablet 0 Eliquis 5 MG Oral Tablet (Apixaban) TAKE 1 TABLET BY MOUTH IN THE MORNING AND AT BEDTIME 60 Tablet 5 Magnesium Oxide 400 MG Oral Tablet TAKE 1 TABLET BY MOUTH IN THE MORNING AND AT BEDTIME 60 Tablet 5 Levothyroxine Sodium 50 MCG Oral Tablet (Levoxyl) Take 1 Tablet by mouth daily first thing in the morning. Take with Levothyroxine 200 mcg dose 30 Tablet 5 Gabapentin 300 MG Oral Capsule (Neurontin) TAKE 2 CAPSULES BY MOUTH IN THE MORNING, NOON AND BEDTIME] 168 Capsule 5 Omeprazole 20 MG Oral Capsule Delayed Release (PriLOSEC) TAKE 1 CAPSULE BY MOUTH ONCE DAILY IN THE MORNING 30 Capsule 3 clonazePAM 0.5 MG Oral Tablet (KlonoPIN) TAKE 1 TABLET BY MOUTH IN THE MORNING AND AT BEDTIME 60 Tablet 0 Mounjaro 5 MG/0.5ML Subcutaneous Solution Pen-injector (Tirzepatide) Inject 5 mg under the skin once a week. 2 mL 11 Baclofen 10 MG Oral Tablet (Lioresal) Take 1 Tablet by mouth 2 times a day as needed for Muscle spasms. 60 Tablet 5 Plavix 75 MG Oral Tablet Take 1 Tablet by mouth daily. Aspirin 81 MG Oral Tablet Delayed Release Take 1 Tablet by mouth in the morning. Tresiba FlexTouch 100 UNIT/ML Subcutaneous Solution Pen-injector (Insulin Degludec) INJECT 50 UNITSUNDER THE SKIN IN THE EVENING (Patient taking differently: INJECT 45 UNITS UNDER THE SKIN IN THE EVENING) 60 mL 3 Doxycycline Hyclate 100 MG Oral Capsule Take 1 Capsule by mouth in the morning and 1 Capsule beforebedtime. ONETOUCH DELICA LANCETS 33G MISC Check blood sugars 3-4 times daily 180 Each 5 oxygen GAS Use 3 L/min(Oxygen) as directed continuous. CPAP every night at bedtime. DIURETIC TITRATION PLAN If no improvement on day 3, contact heart failure managing provider. 1 Each0 OneTouch Verio In Vitro Strip (Glucose Blood) Use up to 4 times a day E11.9 in case of dexcom failure 100 Strip 11 Dexcom G7 Sensor Use as directed. (From [facility]) BD Pen Needle Short U/F 31G X 8 MM (Insulin Pen Needle) use five times daily 500 Each 3 No current facility-administered medications for this [...] Other (Please comment) Passed out OBJECTIVE: BP 118/60 | Pulse 92 | Temp 36.1 C (97 F) | Resp 16 | Ht 1.651 m (5' 5") | Wt 135.9 kg (299 lb 9.6 oz) | LMP 03/11/2003 | SpO2 96% Comment: 3 LPM | BMI 49.86 kg/m | BSA 2.5 m REVIEW OF SYSTEMS: Review of Systems Constitutional: Positive for fatigue. Negative for appetite change, chills, fever and unexpected weight change. HENT: Positive for postnasal drip and rhinorrhea. Negative for congestion, sore throat and trouble [...] concentration and sleep disturbance. PHYSICAL EXAM: BP 118/60 | Pulse 92 | Temp 36.1 C (97 F) | Resp 16 | Ht 1.651 m (5' 5") | Wt 135.9 kg (299 lb 9.6 oz) | LMP 03/11/2003 | SpO2 96% Comment: 3 LPM | BMI 49.86 kg/m | BSA 2.5 m Physical Exam Vitals and nursing note reviewed. Constitutional: General: She is not in acute distress. Appearance: Normal appearance. She is not toxic-appearing. HENT: Head: Normocephalic and atraumatic. Cardiovascular: Rate and Rhythm: Normal rate and regular rhythm. Heart sounds: No murmur heard. No gallop. Pulmonary: Effort: Pulmonary effort is normal. Breath sounds: Normal breath sounds. No wheezing, rhonchi or rales. Abdominal: General: Bowel sounds are normal. There is no distension. Palpations: Abdomen is soft. Tenderness: There is no abdominal tenderness. Musculoskeletal: Comments: Trace bilateral leg edema is present Feet: Comments: Right 1st toenail deformity present Neurological: Mental Status: She is alert and oriented to person, place, and time. Mental status is at baseline. Gait: Gait abnormal. Psychiatric: Mood and Affect: Mood normal. Behavior: Behavior normal. Thought Content: Thought content normal. ASSESSMENT/PLAN Hyperglycemia (Primary) Glucose improving with insulin adjustment Continue to follow with MTM Type 2 diabetes mellitus with stage 3b chronic kidney disease, with long-term current use of insulin (HCC) Continue Tresiba, Novolog, and Monjaro 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 3b chronic kidney disease (HCC) Continue Furosemide Fairfax filter in place Recurrent deep vein thrombosis (DVT) of both lower extremities ([facility]) Continue Apixaban Acute cough - INFLUENZA A/B RSV SARS-COV2,PCR; Future; Expected date: 08/05/2023 Chronic hypoxemic respiratory failure (HCC) Continue Oxygen 2 L NC ILD (interstitial lung disease) ([facility]) Moderate episode of recurrent major depressive disorder ([facility]) Continue Duloxetine, and Trazodone DM peripheral angiopathy ([facility]) - ALBUMIN / CREATININE RATIO, URINE; Future; Expected date: 08/05/2023 Continue Gabapentin Dyslipidemia Postsurgical hypothyroidism Continue Levothyroxine Toenail deformity - PODIATRY REFERRAL OP Statin intolerance Fibromyalgia Restless legs syndrome Continue Ropinirole Gastroesophageal reflux disease with esophagitis without hemorrhage Continue Omeprazole Heparin induced thrombocytopenia (HIT) ([facility]) Carotid artery stenosis, asymptomatic, right Will need to reschedule right TCAR Atherosclerosis of rosebud coronary artery of rosebud heart without angina pectoris Continue ASA Anxiety state Continue Clonazepam Hospital discharge follow-up - DISCH MED RECON CUR MED LIS Follow Up: Return in about 1 month (around 09/04/2023), or if symptoms worsen or fail to improve. Galdino Andujar DO * Frances Ellis RPh - 08/05/2023 1:06 PM EST Started with a cold since coming home from hospital. Sore/rasp throat, runny nose, post-nasal drip.Has felt some chills. Restarted mounjaro today - 5mg. BG in office 298 - reports fingersticks have been about 40 pts lower than dexcom lately. Doxycycline for Lyme in hospital documented in this encounter Nursing Notes * Shira Gross LPN - 08/05/2023 1:36 PM EST URI symptoms started two days ago documented in this encounter Plan of Treatment Upcoming Encounters Date Type Department Care Team (Late st Contact Info) Description 08/05/2023 3:00 PM EST Scheduled Telephone [facility], [facility] [address] [place] [address] Coordinator, [place] [address] [place] [address] 08/06/2023 2:00 PM EST Home Visit [facility] [place], [facility] [address] [place] [address] [facility], Nurse [address] [place] [address] 08/08/2023 2:00 PM EST Nurse Only Ancillary [address] [facility] [address] [facility], [place] [address] College, Nurse Annual Wellness Visit [address], [place] [address] 09/06/2023 9:00 AM EST Scheduled Telephone [facility], [facility] [address] [facility] [place] [address] [facility] Nurse Triage [address] [facility] [place] [address] 09/08/2023 10:00 AM EST Office Visit Podiatry [facility] [address] [facility] [place] [address] Frances Arias DPM [address] [facility] [place] [address] 09/13/2023 9:20 AM EST Office Visit Family Practice [address] [place] [address] Galdino Andujar, DO [address] [place] [address] 09/30/2023 1:00 PM EST Office Visit Family Practice [address] [facility] [address] [place] [address] Galdino Andujar, DO [address] [place] [address] 09/30/2023 1:40 PM EST Office Visit Family Practice [address] [facility] [address] [place] [address] College, Pharmacist [address] [place] [address] 10/20/2023 12:30 PM EST Telemedicine Orthopaedics [facility] [address] [facility] [place] [address] Andrea Paez PA-C [address] [place] [address] 01/11/2024 1:00 PM EDT Office Visit Cardiology, [facility] [address] [place] [address] Marjorie Powell PA-C [address] [place] [address] Pending Results Name Type Priority Associated Diagnoses Date /Time ALBUMIN / CREATININE RATIO, URINE Lab Routine DM peripheral angiopathy (HCC) 08/05/2023 2:06 PM EST INFLUENZA A/B RSV SARS-COV2,PCR Lab Routine Acute cough 08/05/2023 2:04 PM EST Scheduled Orders Name Type Priority Associated Diagnoses Orde r Schedule ALBUMIN / CREATININE RATIO, URINE Lab Routine DM peripheral angiopathy (HCC) Expected: 08/05/2023 (Approximate), Expires: 08/05/2024 INFLUENZA A/B RSV SARS-COV2,PCR Lab Routine Acute cough Expected: 08/05/2023 (Approximate), Expires: 08/04/2024 Scheduled Procedures Name Priority Associated Diagnoses Date/Ti me COLONOSCOPY FLEXIBLE PROXIMAL DIAGNOSTIC Recall Colon cancer screening Scheduled Referrals Name Type Priority Associated Diagnoses Orde r Schedule PODIATRY REFERRAL OP Referral Within 10 days (routine) Toenail deformity Ordered: 08/05/2023 Health Maintenance Due Date Last Done Comments [...] Additional history exists CKD PHOS USE SMARTSET 93775 02/12/202401/24, 01/07/2022, 03/12/2021, Additional history exists Mammogram 04/21/2024 04/21/2023, 01/24, 10/01/2020, Additional history exists Diabetic Eye Exam 05/09/2024 05/09/2023, , 04/14/2021, Additional history exists CKD HGB USE SMARTSET 20698 07/25/202407/25, 03/17/2023, 03/17/2023, Additional history exists Depression [...] Diagnoses Diagnosis Hyperglycemia- Primary Other abnormal glucose Type 2 diabetes mellitus with stage 3b chronic kidney disease, with long-term current use of insulin (HCC) 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 3b chronic kidney disease (HCC) Frank filter in place Other postprocedural status Recurrent deep vein thrombosis (DVT) of both lower extremities (HCC) Acute cough Chronic hypoxemic respiratory failure (HCC) Chronic respiratory failure ILD (interstitial lung disease) (HCC) Postinflammatory pulmonary fibrosis Moderate episode of recurrent major depressive disorder (HCC) DM peripheral angiopathy (HCC) Type II or unspecified type diabetes mellitus with peripheral circulatory disorders, not stated as uncontrolled Dyslipidemia Other and unspecified hyperlipidemia Postsurgical hypothyroidism Toenail deformity Unspecified disease of nail Statin intolerance Other drug allergy Fibromyalgia Mylagia and myositis, unspecified Restless legs syndrome Restless legs syndrome (RLS) Gastroesophageal reflux disease with esophagitis without hemorrhage 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) 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HIT) Carotid artery stenosis, asymptomatic, right Atherosclerosis of rosebud coronary artery of rosebud heart without angina pectoris Anxiety state Anxiety state, unspecified Hospital discharge follow-up Other follow-up examination documented in this encounter Advance Directives Documents on File Type Date Recorded Patient Incident Coordinator Expl anation POLST 03/19/2020 4:25 PM [...] the patient have Health Care Power of Jr. Systems Administrator? No Healthcare Agents on File Name Relationship Healthcare Agent Relationship Communication Galdino Camp Other - (no specific identity) Health Care Power of Jr. Systems Administrator Princess Allen Other - (no specific identity) Health Care Power of Jr. Systems Administrator Care Teams [employer] Relationship Specialty Start Date End Date Galdino Andujar DO [address] [place] [address] PCP - General Internal Medicine 01/07/22 documented as of this encounter
--- OUTSIDE RECORDS SUMMARY | 2023-09-06 08:08 | External Medical Summary ---
Author Name Unknown Address Unknown Organization K01:LABORATORY C - [address] [facility] [id number] Laboratory Report Ordering Provider Test Date Status JAG SHULTZ 08/05/2023 14:04:14 Final Observation Date Value Abnormality Reference (Units ) Status SARS Coronavirus 2 08/05/2023 14:04:14 Negative N egative Final No SARS-CoV2 Coronavirus RNA detected by PCR (amplified probe).
This express test was developed and its performance characteristics determined by [employer]. It has not been cleared or approved [...] SARS-CoV-2 diagnosis, surveillance, and travel within the [place] and to most countries. Please check with local testing authorities about requirements before travel.

The validation of bronchial specimens, tracheal aspirates, and sputum for this assay was developed and performance characteristics determined by [employer]. The validation of alternate specimen types has not been cleared or approved by the U.S. Food and Drug Administration (FDA). It has been determined that such clearance is not necessary. Influenza virus A RNA [Prese nce] in Specimen by [facility] with probe detection 08/05/2023 14:04:14 Negative Negative Final No Influenza A RNA detected by PCR (amplified probe) Influenza virus B RNA [Prese nce] in Specimen by [employer] with probe detection 08/05/2023 14:04:14 Negative Negative Final No Influenza B RNA detected by PCR (amplified probe) Respiratory syncytial virus RNA [Identifier] in Specimen by [facility] with probe detection 08/05/2023 14:04:14 Negative Negative Final No Respiratory Syncytial Vir us RNA detected by PCR (amplified probe) Performing Location [facility] [place] [address] [address] [facility] [address]
[2023-09-06] MEDS ORDERED: SURGICEL ABSORB HEMOSTAT 2IN X 14IN TOP ONE (11:18)
[2023-09-06] MEDS ORDERED: ARISTA ABSORBABLE HEMOSTAT 3GM TOP ONE (11:19)
--- NOTE | 2023-09-06 11:26 | Post Operative Brief Note ---
Immediate Post Op Note v1 Date of Surgery September 06, 2023 Pre & Post Diagnosis Operation Date: 09/06/23 08:00 Pre-Op Diagnosis: Occlusion and Stenosis of Bilateral Carotid Artery Post-Op Diagnosis: Occlusion and Stenosis of Bilateral Carotid Artery I identified the patient and participated in the time-out.: Yes Procedure Operation Date: 09/06/23 08:00 Actual Procedures p Right Carotid Angiogram, Right Transcarotid Artery Revascularization, Right arterial and femoral ultrasound(Right) - Mirza Tang MD Surgeon Mirza Tang MD Commercial Loan Processor MD Say LRonaldMinarchick,PAC Estimated Blood Loss 100 Findings Consistent with Post-Op Diagnosis Anesthesia Type General Complications none Disposition Accompanied Patient To Recovery: No Disposition: Recovery Room
[2023-09-06] MEDS ORDERED: PROTHROMBIN COMP CONC- KCENTRA 5,000 UNITS in SYRINGE 0 ML IV ONE (12:15)
[2023-09-06] MEDS ORDERED: TRANEXAMIC ACID / 0.7% NACL 1,000 MG/100 ML BAG IV STA (12:46)
[2023-09-06] MEDS ORDERED: TRANEXAMIC ACID / 0.7% NACL 1000MG/100ML BAG IV ONE (12:47)
--- NOTE | 2023-09-06 13:43 | Operative Report ---
Post Operative Report Pre & Post Diagnosis Operation Date: 09/06/23 08:00 Pre-Op Diagnosis: Right internal carotid artery stenosis Post-Op Diagnosis: Right internal carotid artery stenosis I identified the patient and participated in the time-out.: Yes Procedure Operation Date: 09/06/23 08:00 Actual Procedures p Right Carotid Angiogram, Right Transcarotid Artery Revascularization, Right arterial and femoral ultrasound(Right) - Mirza Tang MD Surgeon Mirza Tang MD Patient Insurance Clerk MD Walt DealMinarchick,PAC Estimated Blood Loss 200 Findings See Below 1. Right internal carotid artery with significant stenosis on diagnostic cerebral angiogram 2. Right internal carotid artery TCAR stent with good wall apposition on completion angiogram Fluids 1.3L crystalloid, 5,000 units of K-centra, 1 gram of TXA Specimens None Drains 5F arterial line, right femoral artery Anesthesia Type General Complications None immediately evident Disposition Accompanied Patient To Recovery: Yes Disposition: Recovery Room Indications Ms. Camp is a 68 year old female who follows at our vascular surgery clinic for her history of carotid stenosis. Patient states that she occasionally suffers from some dizziness or vertigo, and unfortunately did have a fall not that long ago. Otherwise she denies any symptoms of cerebrovascular insufficiency including amaurosis, unilateral extremity weakness numbness or tingling, difficulty speaking or swallowing, facial droop, sudden onset confusion, other complaints. Her carotid ultrasound performed prior to her clinic appointment did demonstrate significant high grade stenosis of the right ICA, with velocities similar to her last ultrasound 6 months prior. She presented for diagnostic aortic arch/cerebral angiogram through transfemoral catheter, as well as possible transcarotid arterial revascularization (TCAR). Description of Procedure The patient was brought to the operating room, where lines were placed and general anesthesia was accomplished by anesthesia team. A shoulder roll was placed and the neck was rotated towards the left side of the patient. The right neck and bilateral groins were prepped and patient was draped in the usual sterile fashion. A timeout was performed identifying the correct patient by name, procedure, and location of procedure and all were in agreement. Right femoral arterial and venous access was obtained under ultrasound guidance. A micropuncture needle was used to access and a wire and 5F sheath were placed using modified Seldinger technique. Using the right femoral artery access, JB2 catheter over a wire was used to guide the wire into the right innominate artery. The catheter was placed proximal to the right common carotid artery and a diagnostic cerebral angiogram was performed, revealing significant focal stenosis of the right internal carotid artery. 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 She had received an argatroban bolus and was on a continuous argatroban infusion. We then turned our attention back to the right neck. A 4cm transverse incision was made between the sternal and clavicular heads of the sternocleidomastoid muscle. The muscle heads were retracted to each side and the carotid sheath was identified. Using blunt dissection, the carotid sheath was opened and 3cm of common carotid artery (CCA) were isolated. Umbilical tape was placed around the proximal CCA under direct visualization. A 5-0 prolene U-stitch was pre-placed in the anterior wall of the CCA to facilitate hemostasis after removal of the arterial sheath at completion of the procedure. We then turned our attention back to the right femoral vein sheath. The 5F venous sheath was exchanged with the [employer] Venous Return Sheath over an 0.035" wire. Blood was aspirated from the flow line and the sheath was flushed with normal saline.The sheath was secured to the patient's skin with a 2-0 silk stitch to maintain position in the vessel. We turned our attention back to the neck. ACT was confirmed to be above 250 seconds prior to access of the right common carotid artery. A 4-Greek non- stiffened micropuncture set was used, puncturing through the skin and then through the artery with a 21G needle through the pre-placed U-stitch while holding gentle traction on the umbilical tape to stabilize the CCA within the incision. The micropuncture wire was advanced 3-4cm into the CCA and the 21G needle removed. A skin perri was made over the puncture site to allow easier passage of the sheath. The micropuncture sheath was advanced 3cm into the CCA and the wire and dilator were removed. A cerebral angiogram was obtained after ensuring there were no air bubbles in the system. The J-tipped guidewire up to the CCA, proximal to the lesion. The transcarotid arterial sheath footplate was removed and the sheath was advanced through the skin to the 3cm marker and the 0.035" wire and dilator were removed. Arterial sheath position was assessed under fluoroscopy. The arterial sheath was sutured to the patient at two sites. The Flow Controller was connected to the transcarotid arterial sheath, prepared by passively allowing arterial blood to backfill the line and then it was connected to the venous return sheath. The CCA was clamped proximally with a Aba tourniquet to ensure active flow reversal. Normal saline was delivered into the venous flow line to confirm adequate flow reversal. A TCAR timeout was performed, goal was heart rate was >70bpm and systolic BP was >140mmHg. Patient had been pretreated with glycopyrrolate and atropine was available given HR was in the high 60s. The lesion was crossed with an 0.014" guidewire and pre- dilation balloon angioplasty was performed with a 4.5x25mm [employer] rapid exchange balloon to 8 atmospheres. An 8x40mm ENROUTE transcarotid stent was placed, covering the right internal carotid artery lesion. It was extended proximally with an 8x30mm ENROUTE transcarotid stent given there was contrast visualized just proximal to the stent, concerning for possible dissection. A completion angiogram was performed showing appropriate stent position with good wall apposition. There was no evidence of residual dissection on completion angiogram. Post-dilation balloon angioplasty was not required. At TCAR case completion, antegrade flow was restored by releasing the tourniquet on the CCA and closing the stopcocks to the flow lines. The total clamp time was 23 minutes. The transcarotid arterial sheath was removed and the pre-placed suture was tied. A single 6-0 prolene stitch was also placed to achieve hemostasis at the sheath site. A repeat ACT was obtained and was supratherapeutic. After multiple ACT levels were obtained, patient remained supratherapeutic. We gave 5,000 units of K-centra and 1g of TXA. We were able to obtain hemostasis at the neck however ACT was still supratherapeutic. We opted to keep the right femoral artery sheath in place, transduced to an arterial line. After allowing additional time for reversal of the argatroban and adequate hemostasis of the neck, the neck incision was irrigated with antibiotic solution and closed primarily. 20cc of 0.50% marcaine with epinephrine were used for loca l anesthesia around skin edges. The platysma was approximated with 3-0 Vicryl running suture and the skin was closed with 4-0 running Vicryl suture and covered with Dermabond. The skin puncture site was also closed with Dermabond. A pressure dressing was placed over the neck incision. The right femoral vein sheath was removed and manual pressure held. A pressure dressing was placed. The right femoral artery sheath was sutured in place with a 2-0 Nylon and secured with dry gauze and Tegaderm. The arterial line khris back and flushed easily. The patient tolerated the procedure well and was extubated in the operating room. The patient was moving all four extremities to command prior to transfer to the recovery room. All counts were correct at the end of the procedure. Fluoroscopy time was 11.2 minutes, radiation dose was 296 mGy and 18cc of contrast were used. Dr. Tang was present and participated in all critical parts of the procedure. I attest to the content of the Intraoperative Record and any orders documented therein. Any exceptions are noted below.
[2023-09-06] MEDS ORDERED: NovoLIN-R INSULIN PER UNIT CHARGE ONE (14:23)
[2023-09-06] MEDS ORDERED: HYDROmorphone INJ 2 MG/ML SYR/VIAL IV PRN (14:39)
[2023-09-06] MEDS ORDERED: ePHEDrine sulfate 50 MG/ML AMP IV PRN (14:39)
[2023-09-06] MEDS ORDERED: ATROPINE SULFATE 0.1 MG/ML 10ML SYR IV PRN (14:39)
[2023-09-06] MEDS ORDERED: ONDANSETRON INJ 2 MG/ML 2 ML VIAL IV PRN (14:39)
[2023-09-06] MEDS ORDERED: fentaNYL citrate PF 100 MCG/2 ML VIAL IV PRN (14:39)
[2023-09-06] MEDS ORDERED: PROMETHAZINE HCL 12.5 MG in SODIUM CHLORIDE 0.9% 50 ML IV PRN (14:39)
[2023-09-06] MEDS ORDERED: NovoLIN-R INSULIN PER UNIT CHARGE SC STA (15:03)
[2023-09-06] MEDS ORDERED: MECLIZINE 12.5 MG TAB PO PRN (15:59)
[2023-09-06] MEDS ORDERED: DICYCLOMINE HCL 20 MG TAB PO PRN (15:59)
[2023-09-06] MEDS ORDERED: NON-FORMULARY MEDICATION (Insulin Aspart U-100 [Novolog Flexpen U-100 Insulin] 100 unit/mL SQ SCH ×2 (15:59→17:00)
[2023-09-06] MEDS ORDERED: PHARMACY GLYCEMIC MGMT CONSULT PRN (15:59)
[2023-09-06] MEDS ORDERED: DOCUSATE SODIUM 100 MG CAP PO PRN (15:59)
[2023-09-06] MEDS ORDERED: BACLOFEN 10 MG TAB PO PRN (15:59)
[2023-09-06] MEDS ORDERED: INSULIN HUMAN REGULAR SC SCH (16:30)
[2023-09-06] MEDS: LACTATED RINGER'S 1,000 ML IV SCH ×2 (17:43→23:37)
[2023-09-06] MEDS: oxyCODONE HCL IR 5 MG TAB (IMMEDIATE RELEASE) PO PRN (17:43)
[2023-09-06] MEDS: INSULIN ASPART PER UNIT CHARGE SC SCH ×3 (17:44→23:37)
[2023-09-06] MEDS: clonazePAM 0.5 MG TAB PO PRN (17:44)
--- NOTE | 2023-09-06 19:15 | Critical Care Consultation ---
Date of Consultation September 06, 2023 Assessment & Plan (1) Carotid artery stenosis: (2) Right knee DJD: (3) Type 2 diabetes, uncontrolled, with neuropathy: (4) CHF (congestive heart failure): (5) Sleep apnea: (6) Chronic diastolic heart failure: (7) HTN (hypertension): (8) HLD (hyperlipidemia): (9) Morbid obesity: (10) HIT (heparin-induced thrombocytopenia): (11) Hypothyroidism: (12) RLS (restless legs syndrome): Plan Reason Critically Ill: 68 YOF admitted to ICU s/p TCAR for right sided carotid artery stenosis. Neuro - Acute surgical pain, chronic pain, fibromyalgia CAM ICU: Negative - tiered pain control per primary service - Follow for oversedation with acute addition of narcotics to morbidly obese female with ELISSA- Rescue Narcan available - Will have nursing hold her trazodone and tramadol this evening unless definitely required Cardiac - Carotid Artery Stenosis- s/p TCAR, HFpEF- chronic, HTN, HLD - S/p TCAR monitor surgical sites - hemodynamic support per primary service- currently without need of vasoactive medications - Follow hemodynamics Respiratory - ELISSA, chronic hypoxic respiratory failure - Likely secondary to morbid obesity - Will place on CPAP 11cm or autopap - Highly recommend that patient wears her CPAP while on further sedating medications while napping and at night sleeping GI - GERD - PPI while on triple therapy RENAL/LYTES - CKD - no acute needs - ICU electrolyte protocol - No acute needs - remove abdalla when appropriate per primary service ENDO - DMII, Hypothyroidism - Insulin sliding scale - goal BG <180mg/DL HEME - DVT history, HIT history, on chronic anticoagulation - Currently on ASA/Plavix - restart Eliquis when hemostasis ensured and per primary surgical service ID - No acute needs LINES/IV ACCESS - PIV, Femoral arterial line, Abdalla catheter - Continue use of thee lines DVT PROPHYLAXIS - SCDs, ASA, Plavix, - chemoprophylaxis/systemic anticoagulation on hold post surgery at this time- restart per primary service when appropriate DISPO: ICU overnight for hemodynamic monitoring and frequent neurological and neurovascular examinations I have personally spent 40 minutes of critical care time in the direct management of this patient. This is a life/limb threatening event. This includes time spent evaluating patient, direct bedside care, chart review, placing orders, interpretation of diagnostic studies, discussion with consultants, patient, and family members, as well as other required patient management activities. This time is exclusive of all separately billable procedures, and teaching time and separate from and in addition to any other critical care service time. Thank you for allowing us to participate in the care of this patient. Please refer to my attending physician's documentation for any further recommendations. Supervising Physician Co-Signing Physician Notes I have personally evaluated and examined this patient 09/07/23: Postop day #1. I agree with assessment and plan of Mellissa SIMPSON. Patient anticipated uneventful postoperative course, critical care will sign off History of Present Illness Reason for Consultation: s/p RIGHT TCAR Elective Requesting Physician: Mirza Tang MD Attending Physician: Mirza Tang MD History of Present Illness 68 YOF with medical history of: Morbid Obesity, Chronic respiratory failure, HFpEF (50-60), DMII, Hypothyroidism, Fibromyalgia with RLS, ELISSA on CPAP, CKD III, HTN, DVT BLE recurrent, zoraida filter placement, Heparin Induced Thrombocytopenia, Carotid Artery Stenosis. Patient is POD #0 from RIGHT sided TCAR done with argatroban for history of HIT. She arrived to the ICU with right femoral arterial line in place and extubated. Patient evaluated in the ICU. She is awake, pain controlled, right neck incision is intact with some bruising and dressing wrapped with Coban. Right leg arterial access with some mild oozing and with re-inforced pressure dressing in place. She is warm and w ith 2+ pulses throughout. Admitted to ICU for postop monitoring, will order CPAP for night as well as when napping. CODE: FULL Allergies Allergy/AdvReac Type Severity Reaction Status Date / Time morphine Allergy Severe Swelling, Verified 09/06/23 06:26 "Violent reaction- almost " dapagliflozin [From Farxiga] Allergy Intermediate Yeast Verified 09/06/23 06:26 infections tetanus toxoid, adsorbed Allergy Intermediate Passed Verified 09/06/23 06:26 out, "got sick" as child bupropion [From Wellbutrin] AdvReac Intermediate Recurrent Verified 09/06/23 06:26 falls as per patient codeine AdvReac Intermediate Hallucinati Verified 09/06/23 06:26 ons empagliflozin AdvReac Intermediate Yeast Verified 09/06/23 06:26 [From Jardiance] infections heparin AdvReac Intermediate HIT, Verified 12/12/23 06:26 "Fluid in lungs" hydrocodone [From Vicodin] AdvReac Intermediate Drowsy Verified 09/06/23 06:26 Home Medications Medication Instructions Recorded Confirmed Type levothyroxine 200 mcg tablet 200 mcg PO QAM 06/09/18 09/06/23 History omeprazole 20 mg capsule,delayed 20 mg PO QAM 06/09/18 09/06/23 History release dicyclomine 20 mg tablet 20 mg PO QID PRN abdominal pain 03/27/21 09/06/23 History docusate sodium 100 mg capsule 100 mg PO BID PRN Constipation 03/27/21 09/06/23 History (Colace) levothyroxine 50 mcg tablet 50 mcg PO QAM 03/27/21 09/06/23 History meclizine 12.5 mg tablet 12.5 mg PO TID PRN Dizziness 03/27/21 09/06/23 History clonazepam 0.5 mg tablet 0.5 mg PO BID PRN anxiety #0 tabs 03/28/21 09/06/23 Rx ropinirole 2 mg tablet 2 mg PO HS 09/20/21 09/06/23 History potassium chloride 20 mEq 20 meq PO BID 07/14/22 09/06/23 History tablet,extended release(part/cryst) metformin 500 mg tablet,extended 500 mg PO QAM 07/15/22 09/06/23 History release 24 hr furosemide 40 mg tablet 60 mg (1.5 x 40 mg) PO BID #120 07/22/22 09/06/23 Rx tabs magnesium oxide 400 mg (241.3 mg 400 mg PO BID 08/16/22 09/06/23 History magnesium) tablet acetaminophen 500 mg tablet 500 - 1,000 mg PO Q6H PRN Pain 03/05/23 09/06/23 History apixaban 5 mg tablet (Eliquis) 5 mg PO BID 03/05/23 09/06/23 History cholecalciferol (vitamin D3) 25 25 mcg PO QAM 03/05/23 09/06/23 History mcg (1,000 unit) capsule (Vitamin D3) tramadol 50 mg tablet 50 mg PO TID PRN Pain 03/05/23 09/06/23 History trazodone 100 mg tablet 100 mg PO HS 03/05/23 09/06/23 History baclofen 10 mg tablet 10 mg PO BID PRN muscle spasm #30 03/11/23 09/06/23 Rx tabs gabapentin 300 mg capsule 600 mg (2 x 300 mg) PO TID #30 caps 03/11/23 09/06/23 Rx duloxetine 60 mg capsule,delayed 60 mg PO QAM 03/23/23 09/06/23 History release duloxetine 30 mg capsule,delayed 30 mg PO QAM 05/25/23 09/06/23 History release oxycodone 5 mg tablet 5 mg PO Q6H PRN Pain 05/25/23 09/06/23 History aspirin 81 mg tablet,delayed 81 mg PO QAM 07/15/23 09/06/23 History release atorvastatin 20 mg tablet 20 mg PO QAM 07/15/23 09/06/23 History clopidogrel 75 mg tablet (Plavix) 75 mg PO QAM 07/15/23 09/06/23 History insulin degludec 100 unit/mL (3 45 unit subcut HS 07/15/23 09/06/23 History mL) subcutaneous pen (Tresiba FlexTouch U-100 insulin) insulin aspart U-100 100 unit/mL 8 unit (0.08 mL) subcut BIDM #15 mL 08/03/23 09/06/23 Rx (3 mL) subcutaneous pen (Novolog FlexPen U-100 Insulin aspart) insulin aspart U-100 100 unit/mL 10 sliding scale dose subcut 08/03/23 09/06/23 Rx (3 mL) subcutaneous pen (Novolog .EVENING MEAL #15 mL FlexPen U-100 Insulin aspart) tirzepatide 5 mg/0.5 mL 5 mg subcut WK 08/31/23 09/06/23 History subcutaneous pen injector (Mounjaro) Patient History Medical History Hypomagnesemia Mitral valve stenosis Echo 06/2023: Borderline mild mitral stenosis secondary to severe mitral annular calcification Chronic hypoxemic respiratory failure Cataract, bilateral Lumbago with sciatica Lower extremity pain, bilateral Neuropathy feet On home oxygen therapy 3L continuous CHF (congestive heart failure) Follows with Dr. Woodall Subclavian artery stenosis Cerebrovascular duplex study 06/2023: Retrograde flow in the right vertebral artery. 50-69% proximal right subclavian artery stenosis. Antegrade flow in the left vertebral artery. Normal flow in the left subclavian artery. Carotid stenosis, right Cerebrovascular duplex 07/11/23: 80-99% R ICA stenosis. No hemodynamically significant stenosis in the LICA. Diabetes mellitus, type II CKD (chronic kidney disease), stage III Follows with [facility] ELISSA on CPAP CPAP + 3L O2 (O2 is continuous) HTN (hypertension) HLD (hyperlipidemia) Morbid obesity HIT (heparin-induced thrombocytopenia) 2008, [facility] then life flight to [facility] > "resolved" Depression with anxiety Hypothyroidism History of pulmonary embolism 2008 s/p zoraida filter GERD (gastroesophageal reflux disease) RLS (restless legs syndrome) History of DVT (deep vein thrombosis) 2008 (during ICU [facility] admission/PNA) Presence of IVC filter 2008 Fibromyalgia Surgical History Family history of reaction to anesthesia Brother/niece- PONV Brother- "wakes up violent" History of colostomy reversal History of tooth extraction History of arthroscopy left ankle History of incisional hernia repair Nausea and vomiting after administration of anesthetic agent History of colonoscopy History of cholecystectomy History of total right knee replacement History of tracheostomy 06/2009 (per [facility] records), secondary to acute respiratory failure in setting of PNA, reversed a few months later History of thyroidectomy, total 2010 History of colon resection secondary to R colon perforation, resected treated with colostomy and eventual reversal in 2008, Dr. Lerma Family History Father , age 74 Lung cancer Mother , age 45 Cirrhosis Social History Smoking Status: Former smoker Tobacco Type: Cigarettes Cigarettes Per Day: 1996; Second Hand Exposure: Yes (very little in the past); Do You Dip or Chew Tobacco: No; Hx Alcohol Use: No Preferred Language: Lithuanian Communication Ability: Effective Food Preparation Worker Required: No Beliefs That Will Affect Care: Spiritual marital status: Single Current Living Situation: Alone Current Living Situation Comment: apartment How many Children do You have: 0 Feels Safe at Home: Yes Safety Concerns: Feels Safe At This Time Assistive Devices: CPAP, Glasses, Oxygen - Continuous and Walker Assistive Devices Comment: reading glasses Review of Systems Review of Systems: REVIEW OF SYSTEMS: Constitutional: No fever, sweats or chills Eyes: No diplopia, no worsening or blurred vision ENT: normal hearing, no trouble swallowing Respiratory: (+) ELISSA, No cough, sputum, dyspnea at rest or on exertion Cardiovascular: No chest pain, tightness or palpitations Abdomen: No pain, nausea, vomiting, diarrhea or constipation Musculoskeletal: (+) chronic pain in knees, fibromyalgia, restless legs, No joint pain, calf pain, swelling Neurologic: No weakness, numbness/tingling, or balance problems Physical Exam Physical Exam: PHYSICAL EXAM: General: Sleeping on arrival, easily awakened, hypersensitive to any touch Head: Normocephalic, atraumatic ENT: PERRLA, EOMI, no pharyngeal exudate, mucous membranes moist Neuro: AAO x 3, speech clear and appropriate, strength intact bilaterally 5/5, sensation intact and equal all extremities and dermatomes, no pronator drift Chest: equal rise and fall of the chest, no accessory muscle use, no heaves or thrills, lungs difficult to examine secondary to body habitus Cardiac: Regular rate and rhythm, telemetry reviewed- NSR, skin warm dry, cap refill <3 seconds, peripheral pulses +2 no JVD, no murmur, cardiac auscultation difficult secondary to body habitus GI: NABS x 4 quadrants, soft, nontender to palpation, no rebound, guarding or tenderness : Abdalla to gravity draining clive colored urine Skin: incisions intact no strike-thorugh noted on pressure dressings. Results & Data Results & Data Vital Signs (Past 12 Hours) Vital Signs Temp Pulse Pulse Resp BP BP Pulse Ox 09/06/23 18:15 82 16 92 09/06/23 18:00 136/71 09/06/23 18:00 82 22 97 09/06/23 17:45 82 16 93 09/06/23 17:30 129/60 09/06/23 17:30 83 16 92 09/06/23 17:15 82 18 91 09/06/23 17:00 132/55 L 09/06/23 17:00 81 16 90 09/06/23 16:45 83 17 92 09/06/23 16:30 145/58 H 09/06/23 16:30 80 13 90 09/06/23 16:30 09/06/23 16:15 77 12 94 09/06/23 16:00 77 14 95 09/06/23 16:00 124/69 09/06/23 15:58 135/63 09/06/23 15:58 78 15 96 09/06/23 15:47 78 12 97 09/06/23 15:15 80 12 121/69 97 09/06/23 15:05 37.0 C 78 12 136/64 96 09/06/23 14:55 82 12 129/66 99 09/06/23 14:45 83 12 133/68 99 09/06/23 14:35 86 12 112/59 L 94 09/06/23 14:25 86 14 121/76 100 09/06/23 14:15 108 H 16 119/80 100 09/06/23 14:08 36.0 C L 94 H 20 151/70 H 100 O2 Del Method O2 Flow Rate 09/06/23 18:15 09/06/23 18:00 09/06/23 18:00 09/06/23 17:45 09/06/23 17:30 09/06/23 17:30 09/06/23 17:15 09/06/23 17:00 09/06/23 17:00 09/06/23 16:45 09/06/23 16:30 09/06/23 16:30 09/06/23 16:30 Nasal Cannula 2 09/06/23 16:15 09/06/23 16:00 Nasal Cannula 3 09/06/23 16:00 09/06/23 15:58 09/06/23 15:58 09/06/23 15:47 09/06/23 15:15 Nasal Cannula 3.5 09/06/23 15:05 Nasal Cannula 3.5 09/06/23 14:55 Nasal Cannula 3.5 09/06/23 14:45 Nasal Cannula 3.5 09/06/23 14:35 Nasal Cannula 3 09/06/23 14:25 Oxymask 4 09/06/23 14:15 Oxymask 4 09/06/23 14:08 Oxymask 6 Laboratory Results Abnormal lab results 09/06/23 09/06/23 09/06/23 Range/Units 06:25 06:28 09:16 Activ Coag Time Kaolin 617 H (94-140) SECONDS Chloride 97 L (98-107) mmol/L BUN 26 H (6-23) mg/dl Creatinine 1.96 H (0.6-1.2) mg/dl Glucose 191 H (70-99(Fasting)) mg/dl POC Glucose 199 H (70-99) mg/dl 09/06/23 09/06/23 09/06/23 Range/Units 09:45 10:28 10:46 Activ Coag Time Kaolin 455 H 666 H 552 H (94-140) SECONDS Chloride (98-107) mmol/L BUN (6-23) mg/dl Creatinine (0.6-1.2) mg/dl Glucose (70-99(Fasting)) mg/dl POC Glucose (70-99) mg/dl 09/06/23 09/06/23 09/06/23 Range/Units 11:04 11:34 11:47 Activ Coag Time Kaolin 471 H 477 H 417 H (94-140) SECONDS Chloride (98-107) mmol/L BUN (6-23) mg/dl Creatinine (0.6-1.2) mg/dl Glucose (70-99(Fasting)) mg/dl POC Glucose (70-99) mg/dl 09/06/23 09/06/23 09/06/23 Range/Units 12:27 13:06 14:19 Activ Coag Time Kaolin 385 H 320 H (94-140) SECONDS Chloride (98-107) mmol/L BUN (6-23) mg/dl Creatinine (0.6-1.2) mg/dl Glucose (70-99(Fasting)) mg/dl POC Glucose 288 H (70-99) mg/dl 09/06/23 09/06/23 Range/Units 16:55 16:57 Activ Coag Time Kaolin (94-140) SECONDS Chloride (98-107) mmol/L BUN (6-23) mg/dl Creatinine (0.6-1.2) mg/dl Glucose (70-99(Fasting)) mg/dl POC Glucose 312 H* 296 H (70-99) mg/dl Diagnostic Findings none performed in past 24 hours Medications Administered Clonazepam (Clonazepam 0.5 Mg Tab) 0.5 mg PO BID PRN PRN Reason: anxiety Stop: 10/06/23 15:58 Last Admin: 09/06/23 17:44 Dose: 0.5 mg Documented By: NATA Lactated Ringer's (Lr) 1,000 mls @ 125 mls/hr IV .Q8H [facility] Stop: 10/06/23 15:58 Last Admin: 09/06/23 17:43 Dose: 125 mls/hr Documented By: NATA Insulin Aspart (Insulin Aspart Per Unit Charge) 0 units SC ACHS [facility] Stop: 10/06/23 17:14 Last Admin: 09/06/23 17:44 Dose: 11 units Documented By: NATA Co-signed By: TAZ Oxycodone HCl (Oxycodone Hcl Ir 5 Mg Tab (Immediate Release)) 5 mg PO Q6H PRN PRN Reason: Pain Stop: 09/20/23 15:58 Last Admin: 09/06/23 17:43 Dose: 5 mg Documented By: NATA Discontinued Medications Argatroban (Argatroban Bolus From Bag--Use In Pci/Financial Recording Clerk) 350 mcg.per.kg IV ONE ONE Stop: 09/06/23 08:01 Last Admin: 09/06/23 08:29 Dose: 350 mcg.per.kg Documented By: [id number] Co-signed By: [id number] Bupivacaine HCl/Epinephrine Bitart (Bupivacaine/Epinephrine 0.5% Mpf 1:200,000 30 Ml Vial) Confirm Administered Dose 30 ml .ROUTE .STK-MED ONE Stop: 09/06/23 07:39 Last Admin: 09/06/23 13:21 Dose: 20 ml Documented By: TONIO Cefazolin Sodium (Cefazolin 330 Mg/Ml 1 Gm Vial) Confirm Administered Dose 990 mg .ROUTE .STK-MED ONE Stop: 09/06/23 07:39 Last Admin: 09/06/23 13:16 Dose: 990 mg Documented By: TONIO Fentanyl Citrate (Fentanyl Citrate Pf 100 Mcg/2 Ml Vial) 50 mcg IV Q5M PRN PRN Reason: PACU Use Only-Pain Stop: 09/06/23 22:40 Last Admin: 09/06/23 14:45 Dose: 50 mcg Documented By: SANTI Fentanyl Citrate (Fentanyl Citrate Pf 100 Mcg/2 Ml Vial) Confirm Administered Dose 100 mcg .ROUTE .STK-MED ONE Stop: 09/06/23 14:44 Last Admin: 09/06/23 14:47 Dose: Not Given Documented By: WT Gelatin (Gelatin Sponge Sz 100) Confirm Administered Dose 1 each .ROUTE .STK-MED ONE Stop: 09/06/23 07:39 Last Admin: 09/06/23 13:02 Dose: 1 each Documented By: TONIO Cefazolin Sodium (Ancef 3000mg) 72.5 mls @ 130 mls/hr IV PREOP ROBERT; Protocol Stop: 09/06/23 18:00 Last Infusion: 09/06/23 13:36 Dose: Infused Documented By: Admin: 09/06/23 08:23 Dose: 130 mls/hr Documented By: [id number] Sodium Chloride (Nss) 1,000 mls @ 50 mls/hr IV .Q20H ROBERT Stop: 09/07/23 01:59 Last Infusion: 09/06/23 17:33 Dose: Infused Documented By: Admin: 09/06/23 06:56 Dose: 50 mls/hr Documented By: HARRIET Argatroban 250 mg/ Sodium (Chloride) 250 mls @ 201 mls/hr IV .Q1H15M ROBERT; Protocol Stop: 09/06/23 09:14 Last Titration: 09/06/23 17:33 Dose: Infused Documented By: NATA Co-signed By: TAZ Admin: 09/06/23 08:40 Dose: 25 mcg/kg/min, 201 mls/hr Documented By: [id number] Co-signed By: [id number] Idarucizumab 5 gm/ Syringe 100 mls @ 10 mls/min IV 1200 ONE; Protocol Stop: 09/06/23 12:09 Last Admin: 09/06/23 17:32 Dose: Not Given Documented By: NATA Prothrombin Complex Concent ( (Human) 5,000 units/ Syringe) 200 mls @ 10 mls/min IV 1215 ONE; Protocol Stop: 09/06/23 12:34 Last Admin: 09/06/23 12:12 Dose: 10 mls/min Documented By: [id number] Tranexamic Acid (Tranexamic Acid / 0.7% Nacl) 1,000 mg in 100 mls @ 600 mls/hr IV NOW STA Stop: 09/06/23 12:55 Last Infusion: 09/06/23 17:33 Dose: Infused Documented By: Admin: 09/06/23 12:48 Dose: 600 mls/hr Documented By: [email or web address] Insulin Human Regular (Novolin-R Insulin Per Unit Charge) Confirm Administered Dose 10 units .ROUTE .STK-MED ONE Stop: 09/06/23 14:24 Last Admin: 09/06/23 15:09 Dose: Not Given Documented By: SANTI Insulin Human Regular (Novolin-R Insulin Per Unit Charge) 10 units SC NOW STA Stop: 09/06/23 15:04 Last Admin: 09/06/23 15:08 Dose: 10 units Documented By: SANTI Co-signed By: [email or web address] Miscellaneous (Surgicel Absorb Hemostat 2in X 14in) 1 each TOP ONCE ONE Stop: 09/06/23 11:19 Last Admin: 09/06/23 11:18 Dose: 1 each Documented By: TONIO Miscellaneous (Dexter Absorbable Hemostat 3gm) 1 each TOP ONCE ONE Stop: 09/06/23 11:20 Last Admin: 09/06/23 11:20 Dose: 1 each Documented By: TONIO Ondansetron HCl (Ondansetron Inj 2 Mg/Ml 2 Ml Vial) 4 mg IV ONCE PRN PRN Reason: PACU Use Only-Nausea/Vomiting Stop: 09/06/23 22:40 Last Admin: 09/06/23 14:58 Dose: 4 mg Documented By: SANTI Ondansetron HCl (Ondansetron Inj 2 Mg/Ml 2 Ml Vial) Confirm Administered Dose 4 mg .ROUTE .STK-MED ONE Stop: 09/06/23 14:57 Last Admin: 09/06/23 14:58 Dose: Not Given Documented By: SANTI Thrombin (Thrombin For Soln [id number] Unit Kit) Confirm Administered Dose 20,000 units .ROUTE .STK-MED ONE Stop: 09/06/23 07:40 Last Admin: 09/06/23 13:03 Dose: 20,000 units Documented By: TONIO Coding Level of Care Code 33280 CRITICAL CARE 1ST 30-74M Diagnoses Carotid artery stenosis I65.29 Right knee DJD M17.11 Type 2 diabetes, uncontrolled, with neuropathy E11.40; E11.65 CHF (congestive heart failure) I50.9 Heart failure chronicity: acute on chronic Heart failure type: unspecified Sleep apnea G47.30 Chronic diastolic heart failure I50.32 HTN (hypertension) I10 HLD (hyperlipidemia) E78.5 Morbid obesity E66.01 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
[2023-09-06] MEDS ORDERED: NALOXONE HCL 0.4 MG/1 ML VIAL/CARP IV PRN (19:29)
[2023-09-06] MEDS: ceFAZolin 2000MG 2,000 MG/15 ML SYR IV SCH (20:27)
[2023-09-06] MEDS: FUROSEMIDE 20 MG TAB PO SCH (20:28)
[2023-09-06] MEDS: POTASSIUM CHLORIDE CRTAB 20 MEQ TABCR PO SCH (20:28)
[2023-09-06] MEDS: MAGNESIUM OXIDE 400 MG TAB PO SCH (20:28)
[2023-09-06] MEDS: rOPINIRole HCL 2 MG TABLET PO SCH (20:29)
[2023-09-06] MEDS: GABAPENTIN 300 MG CAP PO SCH (20:30)
[2023-09-06] MEDS: traZODone HCL 100 MG TAB PO SCH (20:31)
[2023-09-06] MEDS ORDERED: LANTUS PER UNIT CHARGE SC STA (20:42)
[2023-09-06] MEDS ORDERED: NON-FORMULARY MEDICATION (Insulin Degludec [Tresiba Flextouch U-100] 100 unit/mL (3 mL) in SQ SCH (21:00)
--- NOTE | 2023-09-06 22:12 | Communication Note ---
Date of Service: September 06, 2023 Discontinuation of femoral arterial sheath/transduced arterial line secondary to malfunction. Dr. Tang was notified by RN and ordered to remove. Assisted secondary to location, patient bleeding noted earlier and habitus. Dressing was removed noting old clot and moderate amount of soaked gauze. Site was viewed directly with well formed clot around the site. Sutures were cut line was pulled with direct firm pressure immediately placed directly over artery. Firm direct pressure was held for 15 minutes without note of bleeding or oozing. Tra nsparent pressure dressing was placed over site. Patient was instructed to hold pressure over groin when coughing, moving around in bed or bearing down. Jordan SIMPSON ([facility]
[2023-09-07] MEDS: INSULIN ASPART PER UNIT CHARGE SC SCH ×5 (04:31→20:24)
[2023-09-07] MEDS: ceFAZolin 2000MG 2,000 MG/15 ML SYR IV SCH (04:32)
--- OUTSIDE RECORDS SUMMARY | 2023-09-07 05:18 | External Medical Summary | Summary of Care ---
Author Name Unknown Organization [facility] Address [address] [place] [address] Phone [phone] Care Team Providers Care Digitizer Name Role Phone Lexii Andujar DO Primary Care Provider [phone] Reason for Visit * Reason Onset Date Comments Medication Refill 09/05/2023 Encounter Details Date Type Department Care Team (Late st Contact Info) Description 09/05/2023 Refill Family Practice [address] [place] [address] [place] [address] Lexii Andujar DO [address] [place] [address] Lumbar radiculopathy; Primary osteoarthritis of left knee Allergies Active Allergy Reactions Criticality Noted Date [...] as of this encounter (statuses as of 09/06/2023) Medications Medication Sig Dispensed Refills Start Date End Date Status ONETOUCH DELICA LANCETS 33G MISC Check blood sugars 3-4 times daily 180 Each 5 11/06/201 8 Active oxygen GASIndications:ELISSA (obstructive sleep apnea) [...] ([facility]),Chronic diastolic congestive heart failure ([facility]) TAKE 1 TABLET BY MOUTH [...] goal of 7.0%-8.0% ([facility]) Inject 8 units with breakfast and 8units lunch and 10 units with dinner + sliding scale 1 units for every 25 units BG > 150. 150 mL 3 3 Active metFORMIN HCl ER 500 MG Oral Tablet Extended Release 24 Hour (Glucophage XR)Indications:Type 2 diabetes mellitus with hemoglobin A1c goal of less than 8.0% ([facility]) TAKE 1 TABLET BY MOUTH [...] Dexcom G7 Sensor Use as directed. (From [facility]) 0 3 Active Levothyroxine Sodium 200 MCG Oral Tablet (Levoxyl)Indication s:Postsurgical hypothyroidism TAKE 1 TABLET BY MOUTH ONCE DAILY IN THE MORNING 30 Tablet 5 3 Active Eliquis 5 MG [...] goal of 7.0%-8.0% ([facility]) INJECT 50 UNITS UNDER THE [...] at bedtime. 30 Tablet 5 3 Active oxyCODONE HCl [...] Pain, Severe. 90 Tablet 0 3 Active oxyCODONE HCl 5 MG Oral Tablet (Oxy IR)Indications:Lumb ar radiculopathy Take 1 Tablet by mouth every 6 hours as needed for Pain, Severe. 45 Tablet 0 3 09/05/20 Discontinu ed(Refill) traMADol HCl 50 MG Oral Tablet (Ultram)Indications :Lumbar radiculopathy,Prima ry osteoarthritis of left knee Take 1 Tablet by mouth every 8 hours as needed for Pain, Severe. 90 Tablet 0 3 09/05/20 Discontinu ed(Refill) documented as of this encounter (statuses as of 09/06/2023) Active Problems Problem Noted Date Diagnosed Date Body mass index (BMI) of 45.0 to 49.9 in adult 1 10/08/2022 Overview: Per Obesity protocol - Per Obesity Taxonomy ICD-10 update of inactive term DM peripheral angiopathy 07/13/2023 Last Assessment & Plan: Now followed by vascular, reports upcoming carotid surgery at [facility]. She states she has rx for atorvastatin and plavix to corn picker at pharmacy. 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 Other allergic rhinitis 12/31/2003 12/0 09/2017 Overview: ICD-10 update of inactive term HTN, goal below 140/90 04/09/200310/22 Overview: Per HTN Taxonomy. DM type 2, not at goal 05/29/200207/10 Overview: Modified per Diabetes protocol #14. TENOSYNOVITIS FOOT-ANKLE 12/26/2001 Goiter 01/13/2000 06/28/2011 BACKACHE NOS 08/26/1999 05/24/2017 OBESITY, UNSPECIFIED 08/26/1999 010 Overview: Per Obesity Taxonomy Perforation of intestine Overview: COLON Diverticulitis documented as of this encounter (statuses as of 09/06/2023) Immunizations Name Administration Dates Next Due COVID-19 mRNA, LNP-s, No Pre serve, 2-Dose Series (Vovici) 01/08/2021,12/18/2020 COVID-19, LNP-s, No Preserve , Navarro-sucrose, Ages 12+ (Pfizer) 2022,10/01/2021 COVID-19, MRNA-LNP, 23-24, P F, 30 MCG/0.3 mL, 12 YRS AND ABOVE, IM (PFIZER-Comirnaty) 07/26/2023 Pneumococcal Conjugate Vacci ne, 20-valent ([id number]) 03/12/2022 Pneumococcal Polysaccharide PPV23 (Pneumovax) 08/22/2009,06/15/2006 Season Influenza, Quad, PF, Adjuvanted, 65+ Yrs, IM (FLUAD) 06/13/2020 Seasonal Influenza, PF, 6 M & above, IM , (FluLaval or Fluzone) 07/23/2019,06/12/2018,07/14/2017 Seasonal Influenza, Quadriva lent Hd (Fluzone [...] Telephone Encounter - Lexii Andujar DO - 09/06/2023 11:59 AM ESTSigned Prescriptions: Disp Refills oxyCODONE HCl 5 MG Oral Tablet (Oxy IR) 45 Tab*0 Sig: Take 1 Tablet by mouth every 6 hours as needed for Pain, Severe.Authorizing Provider: LEXII ANDUJAR traMADolHCl 50 MG Oral Tablet (Ultram) 90 Tab*0 Sig: Take 1 Tablet by mouth every 8 hours as needed for Pain , Severe.Authorizing Provider: LEXII ANDUJAR * Telephone Encounter - Argenis Bucio [facility] - 09/06/2023 8:48 AM ESTPending Prescriptions: Disp Refills oxyCODONE HCl 5 MG Oral Tablet (Oxy IR) 45 Tab*0 Sig: Take 1 Tablet by mouth every 6 hours as needed for Pain, Severe. traMADol HCl 50 MG Oral Tablet (Ultram) 90 Tab*0 Sig: Take 1 Tablet by mouth every 8 hours as needed for Pain, Severe. * Telephone Encounter - Argenis Bucio [facility] - 09/06/2023 8:47 AM EST I have reviewed the patients controlled substance dispensing history in the Prescription Drug Monitoring Program in compliance with the [facility] regulations before prescribing a controlled substance. PDMP checked on 09/06/2023. Pending Prescriptions: Disp Refills oxyCODONE HCl 5 MG Oral Tablet (Oxy IR) 45 Tab*0 Sig: Take 1 Tablet by mouth every 6 hours as needed for Pain, Severe. traMADol HCl 50 MG Oral Tablet (Ultram) 90 Tab*0 Sig: Take 1 Tablet by mouth every 8 hours as needed for Pain, Severe. Last Visit: 08/05/2023 (in office), 08/04/2023 (telemedicine) Next Visit: 09/13/2023 Date medication was last filled: 07/12 (Oxy), 07/12 (Tram) Date medication is due for refill: 07/24, 08/11 Pharmacy: [address] Is this request for a controlled [...] approve if appropriate. Thank You, Argenis Bucio [facility] Clinical Pharmacist [facility] ([facility]) (formerly Telepharmacy) [phone] 09/06/2023, 8:47 AM * Telephone Encounter - Clementine Gonzalez CPhT - 09/05/2023 10:48 AM EST Did you pend patient's preferred pharmacy and medication before forwarding?yes Pharmacy: [address] Pending Prescriptions: Disp Refills oxyCODONE HCl 5 MG Oral Tablet (Oxy IR) 45 Tab*0 Sig: Take 1 Tablet by mouth every 6 hours as needed for Pain, Severe. traMADol HCl 50 MG Oral Tablet (Ultram) 90 Tab*0 Sig: Take 1 Tablet by mouth every 8 hours as needed for Pain, Severe. Last Visit: 08/05/2023 (in office), 08/04/2023 (telemedicine) Next Visit: 09/13/2023 If no future appointments scheduled, and last appointment is greater than a year ago, please schedule patient for a follow-up appointment Last date the medication was ordered: 07/08/23 Is this request for a controlled substance?Take 1 Tablet by mouth every 8 hours as needed for Pain,Severe. Urine Drug Screen: Results for orders placed [...] Care Team (Late st Contact Info) Description 09/08/2023 10:00 AM EST Office Visit Podiatry [facility] [address] [facility] [place] [address] Frances Arias DPM [facility] [address] 09/13/2023 9:20 AM EST Office Visit Family Practice [address] [place] [address] [address] [place] [address] Lexii Andujar DO [address] [place] [address] 09/13/2023 10:30 AM EST Scheduled Telephone [facility] [place] [address] [facility] 132 [facility] [place] [address] 09/30/2023 1:00 PM EST Office Visit Family Practice [address] [place] [address] [address] [place] [address] Lexii Andujar, 293 [place] [address] 09/30/2023 1:40 PM EST Office Visit Family Practice [address] [place] [address] [address] [facility], [place] [address] College, Pharmacist [address] [place] [address] 10/06/2023 10:00 AM EST Home Visit [facility] 132 [facility] [place] [address] Vera Capellan, RN 132 [facility] [place] [address] 10/20/2023 12:30 PM EST Telemedicine Orthopaedics [facility] 132 [facility] [place] [address] Andrea Paez PA-C [address] [place] [address] 11/11/2023 2:00 PM EST Nurse Only Ancillary [address], [place] [address] College, Nurse Annual Wellness Visit [address] [address] 01/11/2024 1:00 PM EDT Office Visit Cardiology, [facility] 132 [facility] [place] [address] Marjorie Powell PA-C 132 [facility] [place] [address] Scheduled Procedures Name Priority Associated Diagnoses Date/Ti [...] Additional history exists CKD PHOS USE SMARTSET 67586 02/12/202401/24, 01/07/2022, 03/12/2021, Additional history exists Mammogram 04/21/2024 04/21/2023, 01/24, 10/01/2020, Additional history exists Diabetic Eye Exam 05/09/2024 05/09/2023, , 04/14/2021, Additional history exists CKD HGB USE SMARTSET 10496 07/25/202407/25, 03/17/2023, 03/17/2023, Additional history exists Depression [...] File Type Date Recorded Patient Emergency Medicine Physician Assistant Expl anation POLST 03/19/2020 4:25 PM [...] the patient have Health Care Power of Vacuum Plastic Forming Machine Operator? No Healthcare Agents on File Name Relationship Healthcare Agent Relationship Communication Lexii Camp Other - (no specific identity) Health Care Power of Vacuum Plastic Forming Machine Operator Princess Other - (no specific identity) Health Care Power of Vacuum Plastic Forming Machine Operator Care Teams Digitizer Relationship Specialty Start Date End Date Lexii Andujar DO [address] [place] [address] PCP - General Internal Medicine 01/07/22 documented as of this encounter
[2023-09-07] MEDS: LEVOTHYROXINE SODIUM 200 MCG TABLET PO SCH (06:22)
[2023-09-07] MEDS: LEVOTHYROXINE SODIUM 50 MCG TABLET PO SCH (06:22)
[2023-09-07] MEDS: LACTATED RINGER'S 1,000 ML IV SCH ×3 (08:14→23:01)
[2023-09-07] MEDS: PANTOprazole 40 MG TAB PO SCH (08:14)
[2023-09-07] MEDS: ASPIRIN 81 MG ECTAB PO SCH (08:14)
[2023-09-07] MEDS: MAGNESIUM OXIDE 400 MG TAB PO SCH ×2 (08:15→20:15)
[2023-09-07] MEDS: CLOPIDOGREL BISULFATE 75 MG TAB PO SCH (08:15)
[2023-09-07] MEDS: GABAPENTIN 300 MG CAP PO SCH ×3 (08:16→20:16)
[2023-09-07] MEDS: ATORVASTATIN 20 MG TAB PO SCH (08:16)
[2023-09-07] MEDS: CHOLECALCIFEROL 1,000 UNITS 25 MCG TAB PO SCH (08:16)
[2023-09-07] MEDS: DULoxetine HCL 60 MG CAP PO SCH (08:17)
[2023-09-07] MEDS: POTASSIUM CHLORIDE CRTAB 20 MEQ TABCR PO SCH ×2 (08:17→20:15)
[2023-09-07] MEDS: DULoxetine HCL 30 MG CAP PO SCH (08:17)
[2023-09-07] MEDS: oxyCODONE HCL IR 5 MG TAB (IMMEDIATE RELEASE) PO PRN ×2 (08:30→16:59)
[2023-09-07] MEDS ORDERED: LANTUS PER UNIT CHARGE SC ONE ×2 (09:00→21:00)
[2023-09-07] MEDS ORDERED: ONDANSETRON INJ 2 MG/ML 2 ML VIAL IV PRN (13:19)
[2023-09-07] MEDS ORDERED: ONDANSETRON INJ 2 MG/ML 2 ML VIAL ONE (13:21)
--- NOTE | 2023-09-07 14:52 | Pharmacy Report ---
Pharmacy Glycemic Short Note 2 - Date of Service September 07, 2023 - Glycemic Short BSG Results (Last 24 hours): 09/06/23 09/06/23 09/06/23 16:55 16:57 20:34 POC Glucose 312 H* 296 H 282 H 09/06/23 09/07/23 09/07/23 23:20 04:18 07:14 POC Glucose 256 H 242 H 209 H 09/07/23 11:35 POC Glucose 207 H OUTPATIENT ANTIDIABETIC REGIMEN: * Tresiba 45 units Q HS * Novolog 8 units with breakfast, 8 units with lunch and 10 units with evening meal * Mounjaro 5mg SQ weekly ASSESSMENT: * Type 2 diabetic admitted to ICU s/p TCAR for right sided carotid artery stenosis * Patient did become hyperglycemic following surgery, likely due to surgical stressors and receipt of dexamethasone 8mg IV aramis-op * Patient received 45 units basal insulin last evening as well as 22 units of Novolog correction overnight; fasting BSG 209 this AM. Will give scaled dose of Lantus this evening as effects of steroid should dissipate over the day today * Will escalate the Novolog doses today given BSGs elevated above goal; will reassess tomorrow PLAN FOR INPATIENT GLYCEMIC CONTROL: * Hold outpatient oral diabetes medications * Basal insulin * Lantus 20 units SQ x 1 this AM; 0-40 units this evening depending on BSG * Bolus insulin * NovoLog per scale ACHS or Q6hrs while NPO * Goal Range: Low 120 mg/dL - High 160 mg/dL * Correction Factor: 12 mg/dL/unit * Nutritional / Prandial insulin per carb ratio of 1 unit per 4 grams CHO consumed
--- NOTE | 2023-09-07 15:04 | Surgery Progress Note ---
Date of Service September 07, 2023 Assessment & Plan (1) Carotid stenosis, right: Plan: Pt is now POD #1 after R TCAR. Argatroban was required for her procedure yesterday d/t her heparin allergy. May have some old blood in her throat from intubation/extubation, as she appears to be coughing up small amts of dark clots, no BRB. Pt VSS, saturation 100% on 4 L O2, usually on 3L at home. Discussed with Dr Tang, recommends H&H, PRP, and observation for changing sx. Zofran ordered for nausea Admission and Anticipated Discharge Date Admission Date: September 06, 2023 Subjective 68 yo f POD #1 after R TCAR, seen in f/u today. Pt admits pain in R neck incision, nausea, and coughing up blood clots. States the nausea started after lunch today, as did the coughing. Denies BURROWS or other neuro complaints. Deneis any problems with R groin punctures. Review of Systems Review of Systems: All systems reviewed & are unremarkable except as noted in HPI & below Physical Exam Constitutional: + morbidly obese Neck: trachea midline R supraclavicular incision C/D/I with mild local ecchymosis and minimal swelling. + tenderness. Cardiovascular: Rate/Rhythm: regular rate and regular rhythm Vessels: + abnormal peripheral pulses Extremities: normal capillary refill; no edema Gastrointestinal (Abdomen): Inspection/Auscultation: abdomen normal to inspection and normal bowel sounds Percussion/Palpation: abdomen soft; abdomen nontender Musculoskeletal: no cyanosis or clubbing, extremities motor strength 5/5 Skin: no rashes, warm and dry + incision (punctures with dressings in place. no overt hematoma) Neurologic: moves all extremities and awake; no focal motor deficits and not confused Psychiatric: Orientation: alert and oriented x 3 Affect: + tearful affect Results & Data Vital Signs (Past 12 Hours) Vital Signs Temp Pulse Resp BP Pulse Ox O2 Del Method O2 Flow Rate 09/07/23 14:01 83 15 98 09/07/23 14:01 110/55 L 09/07/23 14:00 81 18 96 09/07/23 13:00 79 10 L 100 09/07/23 12:00 113/53 L 09/07/23 12:00 84 13 100 09/07/23 11:00 118/52 L 09/07/23 11:00 83 18 100 Nasal Cannula 2 09/07/23 10:00 110/57 L 09/07/23 10:00 81 15 94 09/07/23 09:00 79 12 100 09/07/23 09:00 113/52 L 09/07/23 08:14 36.7 C 09/07/23 08:01 80 11 L 09/07/23 08:01 97/65 L 09/07/23 08:00 74 18 09/07/23 07:40 Nasal Cannula 2 09/07/23 07:01 74 13 09/07/23 07:01 92/62 L 09/07/23 07:00 72 13 09/07/23 06:15 80 15 98 09/07/23 06:00 114/62 09/07/23 06:00 75 16 96 09/07/23 05:45 77 16 97 09/07/23 05:30 75 21 97 09/07/23 05:00 75 15 98 09/07/23 05:00 115/51 L 09/07/23 04:30 72 12 100 09/07/23 04:00 74 14 96 09/07/23 04:00 132/60 09/07/23 03:30 36.8 C 73 15 89 L 09/07/23 03:09 70 18 91 09/07/23 03:00 123/63 09/07/23 03:00 69 16 95 FiO2 09/07/23 14:01 09/07/23 14:01 09/07/23 14:00 09/07/23 13:00 09/07/23 12:00 09/07/23 12:00 09/07/23 11:00 09/07/23 11:00 09/07/23 10:00 09/07/23 10:00 09/07/23 09:00 09/07/23 09:00 09/07/23 08:14 09/07/23 08:01 09/07/23 08:01 09/07/23 08:00 09/07/23 07:40 09/07/23 07:01 09/07/23 07:01 09/07/23 07:00 09/07/23 06:15 09/07/23 06:00 09/07/23 06:00 09/07/23 05:45 09/07/23 05:30 09/07/23 05:00 09/07/23 05:00 09/07/23 04:30 09/07/23 04:00 09/07/23 04:00 09/07/23 03:30 09/07/23 03:09 35 09/07/23 03:00 09/07/23 03:00
[2023-09-07 15:40] LABS: Hematocrit (blood only) 34.6 % (37.0-47.0); Hemoglobin 10.8 g/dl (12.0-16.0)
[2023-09-07 15:57] LABS: BUN Creatinine Ratio 19.5 (10-20); Calcium 8.8 mg/dl (8.6-10.3); Creatinine Clr Calc Pharmacy 44.2 ml/min; Est GFR (African American) 35.5 ml/min; Est GFR (Non-African American) 30.7 ml/min; Potassium 4.4 mmol/L (3.5-5.1)
[2023-09-07] MEDS: rOPINIRole HCL 2 MG TABLET PO SCH (20:15)
[2023-09-07] MEDS: traZODone HCL 100 MG TAB PO SCH (20:17)
[2023-09-07] MEDS: clonazePAM 0.5 MG TAB PO PRN (20:42)
[2023-09-07] MEDS: traMADol HCL 50 MG TABLET PO PRN (22:59)
[2023-09-08] MEDS: oxyCODONE HCL IR 5 MG TAB (IMMEDIATE RELEASE) PO PRN (04:17)
[2023-09-08] MEDS: LEVOTHYROXINE SODIUM 50 MCG TABLET PO SCH (04:19)
[2023-09-08] MEDS: LEVOTHYROXINE SODIUM 200 MCG TABLET PO SCH (05:20)
[2023-09-08] MEDS: LACTATED RINGER'S 1,000 ML IV SCH (08:13)
[2023-09-08] MEDS: INSULIN ASPART PER UNIT CHARGE SC SCH ×4 (08:14→21:41)
[2023-09-08] MEDS: MAGNESIUM OXIDE 400 MG TAB PO SCH ×2 (08:15→21:43)
[2023-09-08] MEDS: ASPIRIN 81 MG ECTAB PO SCH (08:15)
[2023-09-08] MEDS: DULoxetine HCL 30 MG CAP PO SCH (08:16)
[2023-09-08] MEDS: PANTOprazole 40 MG TAB PO SCH (08:16)
[2023-09-08] MEDS: CLOPIDOGREL BISULFATE 75 MG TAB PO SCH (08:16)
[2023-09-08] MEDS: CHOLECALCIFEROL 1,000 UNITS 25 MCG TAB PO SCH (08:16)
[2023-09-08] MEDS: DULoxetine HCL 60 MG CAP PO SCH (08:16)
[2023-09-08] MEDS: GABAPENTIN 300 MG CAP PO SCH ×3 (08:17→21:44)
[2023-09-08] MEDS: POTASSIUM CHLORIDE CRTAB 20 MEQ TABCR PO SCH ×2 (08:17→21:44)
[2023-09-08] MEDS: ATORVASTATIN 20 MG TAB PO SCH (08:17)
[2023-09-08] MEDS ORDERED: LANTUS PER UNIT CHARGE SC ONE (09:00)
--- NOTE | 2023-09-08 11:33 | Pharmacy Report ---
Pharmacy Glycemic Short Note 2 - Date of Service September 08, 2023 - Glycemic Short BSG Results (Last 24 hours): 09/07/23 09/07/23 09/07/23 11:35 15:11 15:56 Glucose 244 H POC Glucose 207 H 207 H 09/07/23 09/08/23 09/08/23 20:21 07:17 11:26 Glucose POC Glucose 232 H 167 H 202 H OUTPATIENT ANTIDIABETIC REGIMEN: * Tresiba 45 units Q HS * Novolog 8 units with breakfast, 8 units with lunch and 10 units with evening meal * Mounjaro 5mg SQ weekly ASSESSMENT: 09/08 * Glycemic control improving * 122 units SQ given over last 24 hrs while tolerating a diet * Fasting BSG 167 this AM with 60 units basal on board; will begin transition back to outpt HS dose now as the effects of steroid should be minimal * Post-prandial BSGs did not climb substantially yesterday, leading me to believe primary deficit was basal insulin; will continue same Novolog doses today however lower goal range to allow for a few extra units 09/07 * Type 2 diabetic admitted to ICU s/p TCAR for right sided carotid artery stenosis * Patient did become hyperglycemic following surgery, likely due to surgical stressors and receipt of dexamethasone 8mg IV aramis-op * Patient received 45 units basal insulin last evening as well as 22 units of Novolog correction overnight; fasting BSG 209 this AM. Will give scaled dose of Lantus this evening as effects of steroid should dissipate over the day today * Will escalate the Novolog doses today given BSGs elevated above goal; will reassess tomorrow PLAN FOR INPATIENT GLYCEMIC CONTROL: * Hold outpatient oral diabetes medications * Basal insulin * Lantus 5 units SQ x 1 this AM; 0-45 units this evening depending on BSG * Bolus insulin * NovoLog per scale ACHS or Q6hrs while NPO * Goal Range: Low 110 mg/dL - High 140 mg/dL * Correction Factor: 12 mg/dL/unit * Nutritional / Prandial insulin per carb ratio of 1 unit per 4 grams CHO consumed
[2023-09-08] MEDS: traMADol HCL 50 MG TABLET PO PRN (12:48)
--- NOTE | 2023-09-08 13:21 | Surgery Progress Note ---
Date of Service September 08, 2023 Assessment & Plan (1) Carotid stenosis, right: Plan: Pt is now POD #2 after R TCAR. Feeling better today. Will send to floor and d/c tomorrow Admission and Anticipated Discharge Date Admission Date: September 06, 2023 Subjective Patient got out of bed today. No complaints. No focal neuro deficits. Physical Exam Constitutional: WD/WN, vitals as above Respiratory: normal respiratory effort; no respiratory distress Cardiovascular: Rate/Rhythm: regular rate and regular rhythm Extremities: normal capillary refill Skin: + incision puncture site without complications Neurologic: CN's II-XI intact bilaterally and moves all extremities; no focal motor deficits Psychiatric: Orientation: alert and oriented x 3 Results & Data Vital Signs (Past 12 Hours) Vital Signs Temp Pulse Resp BP Pulse Ox O2 Del Method O2 Flow Rate 09/08/23 11:00 79 14 100 09/08/23 10:00 74 15 100 09/08/23 09:00 70 14 09/08/23 09:00 130/84 09/08/23 08:01 123/67 09/08/23 08:01 73 21 100 09/08/23 08:00 72 14 100 09/08/23 07:24 Nasal Cannula 3 09/08/23 07:23 36.7 C 09/08/23 07:01 68 14 100 Nasal Cannula 3 09/08/23 07:01 116/83 09/08/23 07:00 68 15 09/08/23 06:01 36.5 C 68 15 133/71 100 09/08/23 06:00 67 15 100 09/08/23 05:01 36.6 C 82 14 129/49 L 100 09/08/23 04:00 36.5 C 82 16 130/51 L 99 09/08/23 03:00 84 14 126/53 L 96 09/08/23 02:41 82 21 96 09/08/23 02:00 36.6 C 83 16 122/51 L 96 FiO2 09/08/23 11:00 09/08/23 10:00 09/08/23 09:00 09/08/23 09:00 09/08/23 08:01 09/08/23 08:01 09/08/23 08:00 09/08/23 07:24 09/08/23 07:23 09/08/23 07:01 09/08/23 07:01 09/08/23 07:00 09/08/23 06:01 09/08/23 06:00 09/08/23 05:01 09/08/23 04:00 09/08/23 03:00 09/08/23 02:41 30 09/08/23 02:00
[2023-09-08] MEDS ORDERED: LANTUS PER UNIT CHARGE SC SCH (21:00)
[2023-09-08] MEDS: APIXABAN 5 MG TABLET PO SCH (21:42)
[2023-09-08] MEDS: traZODone HCL 100 MG TAB PO SCH (21:43)
[2023-09-08] MEDS: FUROSEMIDE 20 MG TAB PO SCH (21:43)
[2023-09-08] MEDS: rOPINIRole HCL 2 MG TABLET PO SCH (21:44)
--- OUTSIDE RECORDS SUMMARY | 2023-09-08 23:29 | External Medical Summary | Summary of Care ---
Author Name Unknown Organization [facility] Address [address] [place] [place] [place] [id number] Phone [phone] Care Team Providers Care Truck Car And Bus Cleaner Name Role Phone Galdino Andujar DO Primary Care Provider [phone] Reason for Visit * Reason Onset Date Comments [facility]: Maintenance 09/05/2023 Encounter Details Date Type Department Care Team (Late st Contact Info) Description 09/05/2023 Telephone [facility], [facility] [address] [place] [id number] [facility], Nurse [address] [place] [address] [facility]: [...] goal of 7.0%-8.0% ([facility]) Inject 8 units with breakfast and 8units lunch and 10 units with dinner + sliding scale 1 units for every 25 units BG > 150. 150 mL 3 3 Active metFORMIN HCl ER 500 MG Oral Tablet Extended Release 24 Hour (Glucophage XR)Indications:Type 2 diabetes mellitus with hemoglobin A1c goal of less than 8.0% ([facility]) TAKE 1 TABLET BY [...] Dexcom G7 Sensor Use as directed. 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 Atherosclerosis of [place] co ronary artery without angina pectoris 12/31/2021 [...] rx evidently given by vascular, has to picking crew supervisor rx documented as of this encounter (statuses [...] mRNA, LNP-s, No Pre serve, 2-Dose Series ([employer]) 01/08/2021,12/18/2020 COVID-19, LNP-s, No Preserve , Navarro-sucrose, Ages 12+ ([employer]) 2022,10/01/2021 COVID-19, MRNA-LNP, 23-24, P F, 30 MCG/0.3 mL, 12 YRS AND ABOVE, IM ([facility]) 07/26/2023 Pneumococcal Conjugate Vacci ne, 20-valent ([id number]) 03/12/2022 Pneumococcal Polysaccharide PPV23 (Pneumovax) 08/22/2009,06/15/2006 Season [...] Telephone Encounter - Vera Capellan RN - 09/06/2023 3:23 PM EST Scheduling, is there anything available for Telemed or Tuesday? Or in person for Sathish Lundberg PA-C? I am booked both days. Thank you * Telephone Encounter - Rosemary Aguayo RN - 09/05/2023 11:13 AM EST Received call from pt who is calling to request if she can have a [facility] appt with RN to check on her later this week? She states that she is having surgery tomorrow on her carotid artery and would like for a nurse to do a HV. Will route to the pt's [facility] care team so they can determine which day someone can be scheduled this week to see the pt post op. Rosemary WALTERS, RN [facility] Intake Triage Coordinator [phone] documented in this encounter Plan of Treatment Upcoming Encounters Date Type Department Care Team (Late st Contact Info) Description 09/08/2023 10:00 AM EST Office Visit Podiatry [facility] 132 [facility] [place] [address] Frances Arias DPM 132 [facility] [place] [address] 09/13/2023 9:20 AM EST Office Visit Family Practice [address] [place] [address], [place] [phone] Galdino Andujar, 293 [place] [address] 09/13/2023 10:30 AM EST Scheduled Telephone [facility], [facility] 132 [facility] [place] [address] [facility] Nurse Triage 132 [facility] [place] [address] 09/30/2023 1:00 PM EST Office Visit Family Practice [address] [place] [address] 293 [place] [address] Galdino Andujar, 293 [place] [address] 09/30/2023 1:40 PM EST Office Visit Family Practice 65 [facility] 293 [place] [address] College, Pharmacist [address] [place] [address] 10/06/2023 10:00 AM EST Home Visit [facility], [facility] 132 [facility] [place] [address] Vera Capellan, RN 132 [facility] [place] [address] 10/20/2023 12:30 PM EST Telemedicine Orthopaedics [facility] 132 [facility] [place] [address] Andrea Paez PA-C [address] [place] [address] 11/11/2023 2:00 PM EST Nurse Only Ancillary 65 [facility] 293 [place] [address] College, Nurse Annual Wellness Visit [address] [address] 01/11/2024 1:00 PM EDT Office Visit Cardiology, [facility] 132 [facility] [place] [address] Marjorie Powell, PADar 132 [facility] [place] [address] Scheduled Procedures Name Priority Associated Diagnoses Date/Ti [...] Additional history exists CKD PHOS USE SMARTSET 86527 02/12/202401/24, 01/07/2022, 03/12/2021, Additional history exists Mammogram 04/21/2024 04/21/2023, 01/24, 10/01/2020, Additional history exists Diabetic Eye Exam 05/09/2024 05/09/2023, , 04/14/2021, Additional history exists CKD HGB USE SMARTSET 72628 07/25/202407/25, 03/17/2023, 03/17/2023, Additional history exists Depression [...] on File Type Date Recorded Patient Superintendent Job Expl anation POLST 03/19/2020 4:25 PM POLST [...] the patient have Health Care Power of Dredge Pipe Installer? No Healthcare Agents on File Name Relationship Healthcare Agent Relationship Communication Galdino Camp Other - (no specific identity) Health Care Power of Dredge Pipe Installer Princess Allen Other - (no specific identity) Health Care Power of Dredge Pipe Installer Care Teams Truck Car And Bus Cleaner Relationship Specialty Start Date End Date Galdino Andujar DO 293 [place] [address] PCP - General Internal Medicine 01/07/22 documented as of this encounter
--- OUTSIDE RECORDS SUMMARY | 2023-09-08 23:29 | External Medical Summary | Summary of Care ---
Author Name Unknown Organization [facility] Address [address] [place] [address] Phone [phone] Care Team Providers Care Engineer [employer] Name Role Phone PratimaGaldino DO Primary Care Provider [phone] Reason for Visit * Reason Onset Date Comments Appointment 09/07/2023 Encounter Details Date Type Department Care Team (Late st Contact Info) Description 09/07/2023 Telephone [facility], [facility] [facility] [address] [place] [address] [phone] Services, Scheduling [address] [place] [address] Appointment (//) Allergies Active Allergy Reactions Criticality Noted Date [...] as of this encounter (statuses as of 09/07/2023) Medications Medication Sig Dispensed Refills Start Date [...] congestive heart failure ([facility]) TAKE 1 TABLET BY MOUTH IN THE [...] of 7.0%-8.0% ([facility]) Inject 8 units with breakfast and 8units lunch and 10 units with dinner + sliding scale 1 units for every 25 units BG > 150. 150 mL 3 05/16/2023 Active metFORMIN HCl ER 500 MG Oral Tablet Extended Release 24 Hour (Glucophage XR)Indications:Type 2 diabetes mellitus with hemoglobin A1c goal of less than 8.0% ([facility]) TAKE 1 TABLET BY MOUTH ONCE DAILY [...] Dexcom G7 Sensor Use as directed. (From [facility]) 0 06/01/2023 Active Levothyroxine Sodium 200 MCG Oral Tablet (Levoxyl)Indication s:Postsurgical hypothyroidism TAKE 1 TABLET BY MOUTH ONCE DAILY IN THE MORNING 30 Tablet 5 06/16/2023 Active Eliquis 5 MG Oral Tablet (Apixaban) [...] of 7.0%-8.0% ([facility]) INJECT 50 UNITS UNDER THE SKIN IN [...] at bedtime. 30 Tablet 5 08/20/2023 Active oxyCODONE HCl 5 MG Oral Tablet (Oxy IR)Indications:Lumb ar radiculopathy Take 1 Tablet by mouth every 6 hours as needed for Pain, Severe. 45 Tablet 0 09/06/2023 Active traMADol HCl 50 MG Oral Tablet (Ultram)Indications :Lumbar radiculopathy,Prima ry osteoarthritis of left knee Take 1 Tablet by mouth every 8 hours as needed for Pain, Severe. 90 Tablet 0 09/06/2023 Active documented as of this encounter (statuses as of 09/07/2023) Active Problems Problem Noted Date Diagnosed Date Body mass index (BMI) of 45.0 to 49.9 in adult 1 10/08/2022 Overview: Per Obesity protocol - Per Obesity Taxonomy ICD-10 update of inactive term DM peripheral angiopathy 07/13/2023 Last Assessment & Plan: Now followed by vascular, reports upcoming carotid surgery at [facility]. She states she has rx for atorvastatin and plavix to pick up operator at pharmacy. 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 Atherosclerosis of [place] co ronary artery without angina pectoris 12/31/2021 [...] rx evidently given by vascular, has to pick up operator rx documented as of this encounter (statuses as of 09/07/2023) Resolved Problems Problem Noted Date Diagnosed Date [...] as of this encounter (statuses as of 09/07/2023) Immunizations Name Administration Dates Next Due COVID-19 mRNA, LNP-s, No Pre serve, 2-Dose Series ([employer]) 01/08/2021,12/18/2020 COVID-19, LNP-s, No Preserve , Navarro-sucrose, Ages 12+ ([employer]) 2022,10/01/2021 COVID-19, MRNA-LNP, 23-24, P F, 30 MCG/0.3 mL, 12 YRS AND ABOVE, IM ([facility]Com[facility]) 07/26/2023 Pneumococcal Conjugate Vacci ne, 20-valent ([id number]) 03/12/2022 Pneumococcal Polysaccharide PPV23 (Pneumovax) 08/22/2009,06/15/2006 Season [...] encounter Miscellaneous Notes * Telephone Encounter - Brandie No OSA - 09/07/2023 9:49 AM EST Request to schedule a visit with Toño on or Tue after guillermo is out of hospital from her surgery per her request. Called her about appt on Tue at 3 and she was still IP so I sent note to Toño in appt note to call ahead before going just in case she is not dc yet documented in this encounter Plan of Treatment Upcoming Encounters Date Type Department Care Team (Late st Contact Info) Description 09/08/2023 10:00 AM EST Office Visit Podiatry [facility] [address] [place] [address] Frances Arias DPM 132 [place] [address] 09/09/2023 3:00 PM EST Home Visit [facility] [address] [place] [address] Sathish Lundberg PA-C [address] [place] [address] 09/13/2023 9:20 AM EST Office Visit Family Practice [address] [facility] 293 [place] [address] Galdino Andujar, DO 293 [facility] [place] [address] 09/13/2023 10:30 AM EST Scheduled Telephone [facility], [facility] [address] [place] [address] [facility] Nurse [facility]riage [facility] [place] [address] 09/30/2023 1:00 PM EST Office Visit Family Practice [address] [facility] 293 [place] [address] Galdino Andujar, DO 293 [facility] [place] [address] 09/30/2023 1:40 PM EST Office Visit Family Practice [address] [place] [address] College, Pharmacist [address] [place] [address] 10/06/2023 10:00 AM EST Home Visit [facility], [facility] [address] [place] [address] Vera Capellan, RN [address] [place] [address] 10/20/2023 12:30 PM EST Telemedicine Orthopaedics [facility] [address] [place] [address] Andrea Paez PA-C [address] [place] [address] 11/11/2023 2:00 PM EST Nurse Only Ancillary [address] [facility] 293 [place] [address] College, Nurse Annual Wellness Visit 65 [facility] 293 [facility], [place] [address] 01/11/2024 1:00 PM EDT Office Visit Cardiology, [facility] [address] [place] [address] Marjorie Powell PA-C [address] [place] [address] Scheduled Procedures Name Priority Associated Diagnoses Date/Ti [...] Additional history exists CKD PHOS USE SMARTSET 67077 02/12/202401/24, 01/07/2022, 03/12/2021, Additional history exists Mammogram 04/21/2024 04/21/2023, 01/24, 10/01/2020, Additional history exists Diabetic Eye Exam 05/09/2024 05/09/2023, , 04/14/2021, Additional history exists CKD HGB USE SMARTSET 60712 07/25/202407/25, 03/17/2023, 03/17/2023, Additional history exists Depression [...] Documents on File Type Date Recorded Patient Auditor Supervisor Expl anation POLST 03/19/2020 4:25 PM [...] the patient have Health Care Power of Anesthesiologist Physician? No Healthcare Agents on File Name Relationship Healthcare Agent Relationship Communication Galdino Camp Other - (no specific identity) Health Care Power of Anesthesiologist Physician Princess Allen Other - (no specific identity) Health Care Power of Anesthesiologist Physician Care Teams Engineer Geophysical Laboratory Relationship Specialty Start Date End Date Galdino Andujar DO [address] [place] [address] PCP - General Internal Medicine 01/07/22 documented as of this encounter
--- OUTSIDE RECORDS SUMMARY | 2023-09-08 23:29 | External Medical Summary | Summary of Care ---
Author Name Unknown Organization [facility] Address [address] [place] [facility] [place] [address] Phone [phone] Care Team Providers Care Wood Cabinet Finisher Name Role Phone Galdino Andujar DO Primary Care Provider Reason for Visit * Reason Onset Date Comments [facility]: Maintenance 09/05/2023 Encounter Details Date Type Department Care Team (Late st Contact Info) Description 09/05/2023 Telephone [facility], [facility] [address] [place] [phone] [facility], Nurse [address] [place] [address] [facility]: [...] ([facility]),Chronic diastolic congestive heart failure ([facility]) TAKE 1 TABLET BY MOUTH IN [...] goal of 7.0%-8.0% ([facility]) Inject 8 units with breakfast and 8units lunch and 10 units with dinner + sliding scale 1 units for every 25 units BG > 150. 150 mL 3 3 Active metFORMIN HCl ER 500 MG Oral Tablet Extended Release 24 Hour (Glucophage XR)Indications:Type 2 diabetes mellitus with hemoglobin A1c goal of less than 8.0% ([facility]) TAKE 1 TABLET BY [...] Dexcom G7 Sensor Use as directed. (From [facility]) 0 3 Active Levothyroxine Sodium 200 [...] goal of 7.0%-8.0% ([facility]) INJECT 50 UNITS UNDER THE SKIN [...] by vascular, reports upcoming carotid surgery at [facility]. She states she has rx for atorvastatin and plavix to pickle cutter at pharmacy. 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 Atherosclerosis of [place] co ronary artery without angina pectoris 12/31/2021 [...] evidently given by vascular, has to pickle cutter rx documented as of this encounter (statuses [...] mRNA, LNP-s, No Pre serve, 2-Dose Series ([employer]) 01/08/2021,12/18/2020 COVID-19, LNP-s, No Preserve , Navarro-sucrose, Ages 12+ ([employer]) 2022,10/01/2021 COVID-19, MRNA-LNP, 23-24, P F, 30 MCG/0.3 mL, 12 YRS AND ABOVE, IM ([facility]) 07/26/2023 Pneumococcal Conjugate Vacci ne, 20-valent ([id number]) 03/12/2022 Pneumococcal Polysaccharide PPV23 (Pneumovax) 08/22/2009,06/15/2006 Season [...] to request if she can have a [facility] appt with RN to check on her later this week? She states that she is having surgery tomorrow on her carotid artery and would like for a nurse to do a HV. Will route to the pt's [facility] care team so they can determine which day someone can be scheduled this week to see the pt post op. Rosemary WALTERS, RN [facility] Intake Triage Coordinator [phone] documented in this encounter Plan of Treatment Upcoming Encounters Date Type Department Care Team (Late st Contact Info) Description 09/08/2023 10:00 AM EST Office Visit Podiatry [facility] 132 [facility] [place] [address] Frances Arias DPM 132 [facility] [place] [address] 09/13/2023 9:20 AM EST Office Visit Family Practice [address] [place] [address], [place] [phone] Galdino Andujar, 293 [facility] [place] [address] 09/13/2023 10:30 AM EST Scheduled Telephone [facility], [facility] 132 [facility] [place] [address] [facility] Nurse Triage 132 [facility] [place] [address] 09/30/2023 1:00 PM EST Office Visit Family Practice [address] [place] [address] 293 [facility] [place] [address] Galdino Andujar, 293 [facility] [place] [address] 09/30/2023 1:40 PM EST Office Visit Family Practice 65 [facility] 293 [facility] [place] [address] College, Pharmacist [address] [place] [address] 10/06/2023 10:00 AM EST Home Visit [facility], [facility] 132 [facility] [place] [address] Vera Capellan, RN 132 [facility] [place] [address] 10/20/2023 12:30 PM EST Telemedicine Orthopaedics [facility] 132 [facility] [place] [address] Andrea Paez PA-C [address] [place] [address] 11/11/2023 2:00 PM EST Nurse Only Ancillary 65 [facility] 293 [place] [address] College, Nurse Annual Wellness Visit [address] [address] 01/11/2024 1:00 PM EDT Office Visit Cardiology, [facility] 132 [facility] [place] [address] Marjorie Powell, PADar 132 [facility] [place] [address] Scheduled Procedures Name Priority Associated Diagnoses Date/Ti [...] Additional history exists CKD PHOS USE SMARTSET 89213 02/12/202401/24, 01/07/2022, 03/12/2021, Additional history exists Mammogram 04/21/2024 04/21/2023, 01/24, 10/01/2020, Additional history exists Diabetic Eye Exam 05/09/2024 05/09/2023, , 04/14/2021, Additional history exists CKD HGB USE SMARTSET 97981 07/25/202407/25, 03/17/2023, 03/17/2023, Additional history exists Depression [...] on File Type Date Recorded Patient Service Desk Lead Expl anation POLST 03/19/2020 4:25 PM [...] patient have Health Care Power of Rn Medication? No Healthcare Agents on File Name Relationship Healthcare Agent Relationship Communication Galdino Camp Other - (no specific identity) Health Care Power of Rn Medication Princess Allen Other - (no specific identity) Health Care Power of Rn Medication Care Teams Wood Cabinet Finisher Relationship Specialty Start Date End Date Galdino Andujar DO [address] [place] [address] PCP - General Internal Medicine 01/07/22 documented as of this encounter
[2023-09-09] MEDS: oxyCODONE HCL IR 5 MG TAB (IMMEDIATE RELEASE) PO PRN (01:20)
[2023-09-09] MEDS: LEVOTHYROXINE SODIUM 200 MCG TABLET PO SCH (05:37)
[2023-09-09] MEDS: LEVOTHYROXINE SODIUM 50 MCG TABLET PO SCH (05:37)
[2023-09-09] MEDS: traMADol HCL 50 MG TABLET PO PRN (07:38)
[2023-09-09] MEDS: DULoxetine HCL 30 MG CAP PO SCH (08:07)
[2023-09-09] MEDS: POTASSIUM CHLORIDE CRTAB 20 MEQ TABCR PO SCH (08:07)
[2023-09-09] MEDS: ATORVASTATIN 20 MG TAB PO SCH (08:07)
[2023-09-09] MEDS: CLOPIDOGREL BISULFATE 75 MG TAB PO SCH (08:07)
[2023-09-09] MEDS: DULoxetine HCL 60 MG CAP PO SCH (08:07)
[2023-09-09] MEDS: ASPIRIN 81 MG ECTAB PO SCH (08:08)
[2023-09-09] MEDS: GABAPENTIN 300 MG CAP PO SCH (08:08)
[2023-09-09] MEDS: MAGNESIUM OXIDE 400 MG TAB PO SCH (08:08)
[2023-09-09] MEDS: PANTOprazole 40 MG TAB PO SCH (08:08)
[2023-09-09] MEDS: CHOLECALCIFEROL 1,000 UNITS 25 MCG TAB PO SCH (08:08)
[2023-09-09] MEDS: FUROSEMIDE 20 MG TAB PO SCH (08:09)
[2023-09-09] MEDS: APIXABAN 5 MG TABLET PO SCH (08:10)
[2023-09-09] MEDS ORDERED: metFORMIN HCL ER 500 MG TABCR PO SCH (09:00)
[2023-09-09] MEDS: INSULIN ASPART PER UNIT CHARGE SC SCH (09:12)
--- NOTE | 2023-09-09 09:28 | Surgery Progress Note ---
Date of Service September 09, 2023 Assessment & Plan (1) Carotid stenosis, right: Plan: Pt is now POD #3 after R TCAR, doing well post op. Discussed with tano Salgado for d/c home today. Admission and Anticipated Discharge Date Admission Date: September 06, 2023 Subjective 68 yo f POD#3 after R TCAR, seen in f/u today. Pt states feeling ok, just tired, as she did not sleep well last night. Would like to go home. Review of Systems Review of Systems: All systems reviewed & are unremarkable except as noted in HPI & below Physical Exam Constitutional: + morbidly obese Neck: trachea midline (R supraclavicular incision C/D/I, moderate local ecchymosis tenderness) Cardiovascular: Rate/Rhythm: regular rate and regular rhythm Vessels: + abnormal peripheral pulses Extremities: normal capillary refill; no edema Gastrointestinal (Abdomen): Inspection/Auscultation: abdomen normal to inspection and normal bowel sounds Percussion/Palpation: abdomen soft; ab domen nontender Musculoskeletal: no cyanosis or clubbing, extremities motor strength 5/5 Skin: no rashes, warm and dry + incision (punctures with dressings in place. no overt hematoma) Neurologic: moves all extremities and awake; no focal motor deficits and not confused Psychiatric: Orientation: alert and oriented x 3 Affect: + tearful affect Results & Data Vital Signs (Past 12 Hours) Vital Signs Temp Pulse Pulse Resp BP Pulse Ox O2 Del Method 09/09/23 07:00 36.6 C 81 18 145/68 H 100 Nasal Cannula 09/09/23 00:22 74 17 100 09/08/23 21:45 Room Air O2 Flow Rate FiO2 09/09/23 07:00 3 09/09/23 00:22 30 09/08/23 21:45
--- NOTE | 2023-09-09 09:29 | Discharge Summary ---
Date of Service September 09, 2023 Admission HPI Per Admitting Provider Ms. Camp is a middle-aged female who presents to Dr. Tang's vascular surgery clinic today for a follow-up appointment regarding her history of carotid stenosis. Patient states that she occasionally suffers from some dizziness or vertigo, and unfortunately did have a fall not that long ago. Otherwise she denies any symptoms of cerebrovascular insufficiency including amaurosis, unilateral extremity weakness numbness or tingling, difficulty speaking or swallowing, facial droop, sudden onset confusion, other complaints. Her carotid ultrasound performed prior to today's appointment continues to demonstrate 80 to 99% stenosis in the right ICA, with velocities similar to her last ultrasound here 6 months ago, with peak systolic velocity of 480 cm/s with an end-diastolic velocity of 140 cm/s, and an ICA/CCA ratio of 6.4. Admission Exam Per Admitting Provider Constitutional: In general patient is an obese and mildly chronically ill- appearing middle-aged female in no distress. She is alert and oriented without any focal neurological deficits. She ambulates with a walker. She does have oxygen on via nasal cannula at 3 L/min. She states this has been chronic for her. She does not have carotid bruit. Her heart is regular, her lungs are clear but significantly decreased. Her abdomen is soft nontender with normoactive bowel sounds in all 4 quadrants. Lower extremities a pulses are +1. Principal Diagnosis 1. s/p R TCAR 2. RICAS Discharge Exam Constitutional + morbidly obese Neck trachea midline (R supraclavicular incision C/D/I, moderate local ecchymosis tenderness) Cardiovascular Rate/Rhythm: regular rate and regular rhythm Vessels: + abnormal peripheral pulses Extremities: normal capillary refill; no edema Gastrointestinal (Abdomen) Inspection/Auscultation: abdomen normal to inspection and normal bowel sounds Percussion/Palpation: abdomen soft; abdomen nontender Musculoskeletal no cyanosis or clubbing, extremities motor strength 5/5 Skin no rashes, warm and dry + incision (punctures with dressings in place. no overt hematoma) Neurologic moves all extremities and awake; no focal motor deficits and not confused Psychiatric Orientation: alert and oriented x 3 Affect: + tearful affect Discharge Data Allergies Allergy/AdvReac Type Severity Reaction Status Date / Time morphine Allergy Severe Swelling, Verified 09/06/23 06:26 "Violent reaction- almost " dapagliflozin [From Farxiga] Allergy Intermediate Yeast Verified 09/06/23 06:26 infections tetanus toxoid, adsorbed Allergy Intermediate Passed Verified 09/06/23 06:26 out, "got sick" as child bupropion [From Wellbutrin] AdvReac Intermediate Recurrent Verified 09/06/23 06:26 falls as per patient codeine AdvReac Intermediate Hallucinati Verified 09/06/23 06:26 ons empagliflozin AdvReac Intermediate Yeast Verified 09/06/23 06:26 [From Jardiance] infections heparin AdvReac Intermediate HIT, Verified 09/06/23 06:26 "Fluid in lungs" hydrocodone [From Vicodin] AdvReac Intermediate Drowsy Verified 09/06/23 06:26 Consultations 09/06/23 15:59 Consult [employer] Routine Procedures Performed Operation Date: 09/06/23 08:00 Actual Procedures p Right Carotid Angiogram, Right Transcarotid Artery Revascularization, Right arterial and femoral ultrasound(Right) - Mirza Tang MD Ordered Studies 09/06/23 07:15 EV angio carotid external RT Routine US EV guide vascular access Routine Hospital Course (1) Carotid stenosis, right: Pt is now POD #3 after R TCAR, doing well post op. Discussed with tano Salgado for d/c home today. Total Time Total Time Spent Total Time Spent (In Minutes): 0 Discharge Plan Discharge Items Patient Disposition: Home - Self-Care Reason For Visit: Occlusion and Stenosis of Bilateral Carotid Arteri Discharge Diagnosis: 1. s/p R TCAR 2. R ICA Stenosis Activity: Per Instructions section Non-emergency contact: Primary Care Provider and Surgeon Call non-emergency contact if: you have any medication questions, your pain is not controlled, your pain is worsening, your pain is concerning for you, you have a fever, your wound has increased redness and your wound has increased drainage Follow-up/Referrals: Mirza Tang MD [Physician] - (Follow up with Dr Tang or Carmen Waggoner PA-C, in 2 weeks. ) Galdino Andujar DO [Primary Care Provider] - (Follow up with your PCP within 2 weeks) Diet: Carb Consistent or DM2 and Heart Healthy Addtl Attending Provider Instructions: SPECIAL CARE INSTRUCTIONS: Medications: * Continue to take Aspirin, plavix, and statin medication as directed. DO NOT STOP these medications without speaking to Dr Tang's office. Incision Care: * You may shower, but do not rub incision. You may let the warm soapy water run over it. Be sure to dry the incision well after bathing. * Do not shave directly over the incision until it is healed. * DO NOT IMMERSE THE INCISION IN A TUB/POOL/etc. UNTIL HEALED. Restrictions: * Do not drive for at least one week or if you are still taking any narcotic pain medication. * Do not lift anything heavier than a gallon of milk for one week after going home. Possible Complications: * Numbness - It is normal to have some numbness around the incision. Numbness can extend beyond the incision to areas of the neck, ear and face. The numbness is due to bruising of nerves during the surgery and will gradually improve over a period of months. * Hoarseness/Difficulty Speaking and Swallowing - The bruising of nerves in the neck can also cause a hoarse voice, difficulty speaking or swallowing. This may improve over time, HOWEVER, if it continues for more than a few days please contact our office ([phone]). * Excessive Swelling - There will be some swelling immediately after surgery which usually resolves within one week. If you notice that the swelling is getting worse, notify your surgeon ([phone]). * Drainage/Bleeding - If there is any drainage or bleeding, it should be a very small amount (less than a teaspoon per day). If you have excessive bleeding or drainage from the incision, call your surgeon ([phone]) right away. ACTIVATION OF EMERGENCY MEDICAL SYSTEM: Call 911, immediately, if you experience any of the following: Warning Signs and Symptoms of Stroke: * Sudden numbness or weakness of the face, arm or leg, especially on one side of the body * Sudden confusion, trouble speaking or understanding * Sudden trouble seeing in one or both eyes * Sudden trouble walking, dizziness, loss of balance or coordination * Sudden severe headache with no cause Do not delay calling 911 if you experience any warning signs or symptoms of a stroke. Delay in seeking medical attention may affect what treatments can be given to you. Risk Factors for Stroke: You can reduce your chances of stroke by working with your medical provider to adopt a healthy lifestyle. Some specific ways to lower your chance of stroke are: * If you are a smoker, now is the time to stop smoking cigarettes * If you are diabetic, improve the control of your blood sugars * Avoid excessive amounts of alcohol * Control high blood pressure * Lose weight if you are overweight * Be sure to lead an active lifestyle * Eat a healthy diet low in salt, cholesterol and fat You should know about other risk factors for stroke that you are unable to control. These include: * Age 55 years or older * Male gender * Certain racial groups: , or / * Family History of Stroke, Mini stroke or Heart Attack * Sickle Cell Disease You will be receiving a call from the Vascular Surgery Nurse after you are discharged. FOLLOW UP VISIT: It is important for you to keep your follow up appointments with your medical provider. Keep any scheduled doctor appointments. Pending Studies at Discharge: No Stand-Alone Forms: My [facility], Smoking Cessation Medications and DC Order Prescriptions: Continued levothyroxine 200 mcg Tablet 200 mcg PO QAM Rx Instructions: TOTAL DOSE 250 MCG--TAKE WITH 25 MCG TAB. omeprazole 20 mg Capsule,Delayed Release(Dr/Ec) 20 mg PO QAM dicyclomine 20 mg tablet 20 mg PO QID PRN (Reason: abdominal pain) levothyroxine 50 mcg tablet 50 mcg PO QAM Rx Instructions: TOTAL DOSE 250 MCG--TAKE WITH 200 MCG TAB. docusate sodium [Colace] 100 mg capsule 100 mg PO BID PRN (Reason: Constipation) meclizine 12.5 mg tablet 12.5 mg PO TID PRN (Reason: Dizziness) clonazepam 0.5 mg Tablet 0.5 mg PO BID PRN (Reason: anxiety) Qty: 0 0RF ropinirole 2 mg Tablet 2 mg PO HS potassium chloride 20 mEq tablet,ER particles/crystals 20 meq PO BID metformin 500 mg tablet extended release 24 hr 500 mg PO QAM furosemide 40 mg tablet 60 mg PO BID Qty: 120 0RF oxycodone 5 mg tablet 5 mg PO Q6H PRN (Reason: Pain) duloxetine 30 mg capsule,delayed release(DR/EC) 30 mg PO QAM Rx Instructions: TOTAL DOSE 90 MG--TAKE WITH 60 MG CAP. insulin degludec [Tresiba FlexTouch U-100] 100 unit/mL (3 mL) insulin pen 45 unit SUBCUT HS atorvastatin 20 mg Tablet 20 mg PO QAM clopidogrel [Plavix] 75 mg Tablet 75 mg PO QAM aspirin 81 mg Tablet,Delayed Release (Dr/Ec) 81 mg PO QAM insulin aspart U-100 [Novolog FlexPen U-100 Insulin] 100 unit/mL (3 mL) insulin pen 8 unit SUBCUT BIDM Qty: 15 0RF Rx Instructions: TAKE 8 UNITS WITH BREAKFAST AND LUNCH. insulin aspart U-100 [Novolog FlexPen U-100 Insulin] 100 unit/mL (3 mL) Insulin Pen 10 sliding scale dose SUBCUT .EVENING MEAL Qty: 15 0RF Mounjaro 5 mg/0.5 mL Pen Injector 5 mg SUBCUT WK Patient Comments: takes on fridays>last dose 08/26/23 magnesium oxide 400 mg (241.3 mg magnesium) tablet 400 mg PO BID tramadol 50 mg tablet 50 mg PO TID PRN (Reason: Pain) trazodone 100 mg tablet 100 mg PO HS acetaminophen 500 mg Tablet 500 - 1,000 mg PO Q6H PRN (Reason: Pain) cholecalciferol (vitamin D3) [Vitamin D3] 25 mcg (1,000 unit) Capsule 25 mcg PO QAM Eliquis 5 mg Tablet 5 mg PO BID baclofen 10 mg Tablet 10 mg PO BID PRN (Reason: muscle spasm) Qty: 30 0RF gabapentin 300 mg capsule 600 mg PO TID Qty: 30 0RF duloxetine 60 mg capsule,delayed release(DR/EC) 60 mg PO QAM Rx Instructions: TOTAL DOSE 90 MG--TAKE WITH 30 MG CAP. Discharge Orders: Discharge Order (Routine); Ordered 09/09/23 Ordered By: Carmen Waggoner Admission Data Admit Date/Time: 09/06/23 07:33 Attending Provider: Mirza Tang Admit Provider: Mirza Tang Primary Care Provider: Galdino Andujar Other Providers: Callum Gilmore; Ozzie Saucedo; David Gamboa; Gabriel Beckham; Deepika Contreras Muqueet; Jordan Mariee; Azalea Lay; Xenia Whittaker; Isai Meyers; Humberto Latham; Stacie Stanley
== END 2023-09-09 12:34 | disposition home or self-care (01) | DRG 35 ==
LOC: ASU 05:59 → 1E 11:04 → 3N 09-08 15:12
PROC: EV.TCAR (2023-09-06 08:00)

== ENCOUNTER 2023-09-19 23:08 | Inpatient (IN) ==
--- OUTSIDE RECORDS SUMMARY | 2023-09-19 23:12 | External Medical Summary | Summary of Care ---
Author Name Unknown Organization [facility] Address [address] [place] [address] Phone [phone] Care Team Providers Care Returner Name Role Phone Galdino Andujar DO Primary Care Provider [phone] Reason for Visit * Reason Onset Date Comments Hospital Follow-Up Hospital Follow-Up 09/13/2023 Encounter Details Date Type Department Care Team (Latest Contact Info) Description 09/13/2023 9:20 AM EST Office Visit Family Practice [address] [place] [address] [place] [address] Galdino Andujar DO [address] [place] [address] H/O transcarotid artery revascularization (TCAR)*; 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 3b chronic kidney disease ([facility]); Type 2 diabetes mellitus with stage 3b chronic kidney disease, with long-term current use of insulin ([facility]); Chronic hypoxemic respiratory failure ([facility]); ILD (interstitial lung disease) ([facility]); Moderate episode of recurrent major depressive disorder ([facility]); DM peripheral angiopathy ([facility]); Dyslipidemia; Postsurgical hypothyroidism; History of pulmonary embolus (PE); Fibromyalgia; Abnormality of gait; Gastroesophageal reflux disease with esophagitis without hemorrhage; Hyperparathyroidism, secondary renal ([facility]); Spinal stenosis of lumbar region without neurogenic claudication; Heparin induced thrombocytopenia (HIT) ([facility]); Atherosclerosis of [place] coronary artery of [place] heart without angina pectoris; Anxiety state; Frank filter in place; Recurrent deep vein thrombosis (DVT) of both lower extremities ([facility]); Nausea; Hospital discharge follow-up Allergies Active Allergy Reactions [...] as of this encounter (statuses as of 09/13/2023) Medications Medication Sig Dispensed Refills Start Date End Date Status [facility] [place] Check blood sugars 3-4 times daily [...] for Cramping. 180 Tablet 3 2 Active Acetaminophen 500 MG Oral Tablet (Tylenol) Take 2 Tablets by mouth in the morning and 2 Tablets at noon and 2 Tablets before bedtime. 100 Tablet 0 3 Active DIURETIC TITRATION PLAN If no improvement on day 3, contact heart failure managing provider. 1 Each 0 3 Active NovoLOG FlexPen 100 UNIT/ML Subcutaneous Solution Pen-injector (insulin aspart)Indications: Type 2 diabetes mellitus with hemoglobin A1c goal of 7.0%-8.0% ([facility]) Inject 8 units with breakfast [...] Dexcom G7 Sensor Use as directed. (From [facility]) 0 3 Active Levothyroxine Sodium 200 [...] goal of 7.0%-8.0% ([facility]) INJECT 50 UNITS UNDER THE [...] hours as needed for Nausea. 0 Active Senna-Time S 8.6-50 MG Oral Tablet [...] Pain, Severe. 90 Tablet 0 3 Active Potassium Chloride Ayleen ER 20 MEQ Oral Tablet Extended ReleaseIndications: Benign hypertensive heart and kidney disease with diastolic CHF, NYHA class 1 and CKD stage 3 (HCC),Chronic diastolic congestive heart failure (HCC) TAKE 1 TABLET BY MOUTH IN THE MORNING AND AT BEDTIME 60 Tablet 5 3 Active DULoxetine HCl 60 MG Oral Capsule Delayed Release Particles (Cymbalta)Indicatio ns:Fibromyalgia,Pete or depressive disorder, recurrent, moderate (HCC) TAKE 1 CAPSULE BY MOUTH ONCE DAILY IN THE MORNING 30 Capsule 5 3 Active clonazePAM 0.5 MG Oral Tablet (KlonoPIN)Indicatio ns:Restless legs syndrome,Anxiety state TAKE 1 TABLET BY MOUTH IN THE MORNING AND AT BEDTIME 60 Tablet 0 3 Active Meclizine HCl 12.5 MG Oral Tablet (Antivert)Indicatio ns:Vertigo Take 1 Tablet (12.5 mg) by mouth 3 times a day as needed for Dizziness. 30 Tablet 1 2 09/13/20 23 Discontinu ed(Medicat ion List Clean Up) Docusate Sodium 100 MG Oral Capsule (Colace) Take 1 Capsule by mouth in the morning and 1 Capsule before bedtime. 0 3 09/13/20 23 Discontinu ed(Medicat ion List Clean Up) Hospital, Clinic, or Other Facility Administered Medication Ordered Dose Route Frequency Start Date End Date Status ondansetron (Zofran) tab 4 mgIndications:Nausea 4 mg OR ONCE 09/13/2023 09/13/2023 Ende d documented as of this encounter (statuses as of 09/13/2023) Active Problems Problem Noted Date Diagnosed Date Body mass index (BMI) of 45.0 to 49.9 in adult 1 10/08/2022 Overview: Per Obesity protocol - Per Obesity Taxonomy ICD-10 update of inactive term DM peripheral angiopathy 07/13/2023 Last Assessment & Plan: Now followed by vascular, reports upcoming carotid surgery at [facility]. She states she has rx for atorvastatin and plavix to pick up attendant at pharmacy. 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 Atherosclerosis of [place] co ronary artery without angina pectoris 12/31/2021 [...] given by vascular, has to pick up attendant rx documented as of this encounter (statuses as of 09/13/2023) Resolved Problems Problem Noted Date Diagnosed Date [...] as of this encounter (statuses as of 09/13/2023) Immunizations Name Administration Dates Next Due COVID-19 mRNA, LNP-s, No Pre serve, 2-Dose Series (Launchpilots) 01/08/2021,12/18/2020 COVID-19, LNP-s, No Preserve , Navarro-sucrose, Ages 12+ (Pfizer) 2022,10/01/2021 COVID-19, MRNA-LNP, 23-24, P F, 30 MCG/0.3 mL, 12 YRS AND ABOVE, IM (PFIZER-Comirnaty) 07/26/2023 Pneumococcal Conjugate Vacci ne, 20-valent ([id number]) 03/12/2022 Pneumococcal Polysaccharide PPV23 (Pneumovax) 08/22/2009,06/15/2006 Season [...] Answer Date Recorded PHQ Adult Total Score 2 09/13/2023 Hunger Vital Sign Answer Date Recorded Within the past 12 months, y ou worried that your food would run out before you got the money to buy more. Never true 09/13/20 23 Within the past 12 months, t he food you bought just didn't last and you didn't have money to get more. Never true 09/13/2023 Sex and Gender Information Value Date Recorded Sex Assigned at Female 11/07/2019 2:21 PM EST Gender Identity Female 11/07/2019 2:21 PM EST Sexual Orientation Straight 11/07/2019 2: 21 PM EST Job Start Date Occupation Industry Not on file Not on file Not on file documented as of this encounter Last Filed Vital Signs Vital Sign Reading Time Taken Comments Blood Pressure 122/60 09/13/2023 8:59 AM EST Pulse 100 09/13/2023 8:59 AM EST Temperature 35.8 C (96.4 F) 09/13/2023 8:59 AM ES T Respiratory Rate 16 09/13/2023 8:59 AM EST Oxygen Saturation 94% 09/13/2023 8:59 AM EST with 3 LPM Inhaled Oxygen Concentration - - Weight 134 kg (295 lb 8 oz) 09/13/2023 8:[address] Height 165.1 cm (5' 5") 09/13/2023 8:59 AM EST Body Mass Index 49.17 09/13/2023 8:59 AM EST documented in this encounter Progress Notes * Shira Gross LPN - 09/13/2023 10:54 AM EST Genet per order. * Galdino Andujar DO - 09/13/2023 9:45 AM EST SUBJECTIVE: Stephanie Camp is a 68 year old female. Chief Complaint Patient presents with Hospital Follow-Up Hospital Follow-Up Recent Admission: Patient was recently admitted to [facility]. The date of discharge was 09/09/2023. Discharge report received and reviewed. HPI: Patient [...] seen for hospital follow up. The patient had right Transcarotid Artery Revascularization done on 09/09/2023 at [facility]. Chronic anderson has worsened. Chronic shortness of breath is unchanged. Right incisional chest pain is improving. Weight is stable and appetite is fair. Patient Active Problem List Diagnosis Code Dyslipidemia E78.5 Postsurgical hypothyroidism E89.0 ELISSA (obstructive sleep apnea) G47.33 Venous insufficiency I87.2 Essential hypertension with goal blood pressure less than 140/90 I10 History of pulmonary embolus (PE) Z86.711 Statin intolerance Z78.[address] Z95.828 Fibromyalgia M79.7 Abnormality of gait R26.9 Restless legs syndrome G25.81 Gastroesophageal reflux disease with esophagitis K21.00 Controlled substance agreement signed Z79.899 Lumbar radiculopathy M54.16 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 3b chronic kidney disease ([facility]) I13.0, I50.32, N18.32 Hyperparathyroidism, secondary renal ([facility]) N25.81 Vasculitis ([facility]) I77.6 Primary osteoarthritis of left knee M17.12 Spinal stenosis of lumbar region without neurogenic claudication M48.061 Heparin induced thrombocytopenia (HIT) ([facility]) D75.829 Atherosclerosis of [place] coronary artery without angina pectoris I25.10 Carotid artery stenosis, asymptomatic, right I65.21 Encounter for long-term (current) use of other medications Z79.899 Type 2 diabetes mellitus with hemoglobin A1c goal of less than 8.0% ([facility]) E11.9 Recurrent deep vein thrombosis (DVT) of both lower extremities ([facility]) I82.403 Chronic hypoxemic respiratory failure ([facility]) J96.11 Chronic kidney disease, stage 3b ([facility]) N18.32 ILD (interstitial lung disease) ([facility]) J84.9 Moderate episode of recurrent major depressive disorder ([facility]) F33.1 Primary osteoarthritis of both knees M17.0 Type 2 diabetes mellitus with stage 3b chronic kidney disease, with long-term current use of insulin ([facility]) E11.22, N18.32, Z79.4 Anxiety state F41.1 Sacroiliitis, not elsewhere classified ([facility]) M46.1 DM peripheral angiopathy ([facility]) E11.51 Body mass index (BMI) of 45.0 to 49.9 in adult ([facility]) Z68.42 Current Outpatient Medications Medication Sig Dispense Refill Acetaminophen 500 MG Oral Tablet (Tylenol) Take 2 Tablets by mouth in the morning and 2 Tablets at noon and 2 Tablets before bedtime. 100 Tablet 0 NovoLOG FlexPen 100 UNIT/ML Subcutaneous Solution Pen-injector (insulin aspart) Inject 8 units withbreakfast and 8units lunch and 10 units with [...] TABLET BY MOUTH ONCE DAILY IN THE [id number] Tablet 5 Eliquis 5 MG Oral Tablet [...] DAILY IN THE MORNING 30 Capsule 3 Mounjaro 5 MG/0.5ML Subcutaneous Solution Pen-injector (Tirzepatide) [...] SKIN IN THE EVENING) 60 mL 3 Atorvastatin Calcium 20 MG Oral Tablet (Lipitor) Take 1 Tablet by mouth in the morning. Prescribed by Carmen Waggoner PA-C. Senna-Time S 8.6-50 MG Oral Tablet (senna-docusate) TAKE 1 TABLET BY MOUTH IN THE MORNING AND AT BEDTIME 60 Tablet 5 traZODone HCl 100 MG Oral Tablet (Desyrel) TAKE 1 TABLET BY MOUTH AT BEDTIME 30 Tablet 5 rOPINIRole HCl 2 MG Oral Tablet (Requip) Take 1 Tablet by mouth at bedtime. 30 Tablet 5 oxyCODONE HCl 5 MG Oral Tablet (Oxy IR) Take 1 Tablet by mouth every 6 hours as needed for Pain, Severe. 45 Tablet 0 traMADol HCl 50 MG Oral Tablet (Ultram) Take 1 Tablet by mouth every 8 hours as needed for Pain, Severe. 90 Tablet 0 Potassium Chloride Ayleen ER 20 MEQ Oral Tablet Extended Release TAKE 1 TABLET BY MOUTH IN THE MORNING AND AT BEDTIME 60 Tablet 5 DULoxetine HCl 60 MG Oral Capsule Delayed Release Particles (Cymbalta) TAKE 1 CAPSULE BY MOUTH ONCEDAILY IN THE MORNING 30 Capsule 5 clonazePAM 0.5 MG Oral Tablet (KlonoPIN) TAKE 1 TABLET BY MOUTH IN THE MORNING AND AT BEDTIME 60 Tablet 0 [employer] LANCETS 33G MISC Check blood sugars 3-4 times daily 180 Each 5 oxygen GAS Use 3 L/min(Oxygen) as directed continuous. CPAP every night at bedtime. Dicyclomine HCl 20 MG Oral Tablet (Bentyl) Take 1 Tablet (20 mg) by mouth 4 times a day as needed for Cramping. 180 Tablet 3 DIURETIC TITRATION PLAN If no improvement on day 3, contact heart failure managing provider. 1 Each0 OneTouch Verio In Vitro Strip (Glucose Blood) Use up to 4 times a day E11.9 in case of dexcom failure 100 Strip 11 Dexcom G7 Sensor Use as directed. (From [facility]) BD Pen Needle Short U/F 31G X 8 MM (Insulin Pen Needle) use five times daily 500 Each 3 Ondansetron HCl 4 MG Oral Tablet (Zofran) Take 1 Tablet by mouth every 6 hours as needed for Nausea. No current facility-administered medications for this visit. [...] Other (Please comment) Passed out OBJECTIVE: BP 122/60 | Pulse 100 | Temp 35.8 C (96.4 F) | Resp 16 | Ht 1.651 m (5' 5") | Wt 134 kg (295 lb8 oz) | LMP 03/11/2003 | SpO2 94% Comment: with 3 LPM | BMI 49.17 kg/m | BSA 2.48 m REVIEW OF SYSTEMS: Review of Systems Constitutional: Positive for appetite change and fatigue. Negative for chills, fever and unexpectedweight change. HENT: Negative for congestion, sore throat and trouble swallowing. Respiratory: Positive for shortness of breath. Negative for cough and wheezing. Cardiovascular: Negative for chest pain, palpitations and leg swelling. Gastrointestinal: Negative for abdominal pain, blood in stool, constipation, diarrhea, nausea and vomiting. Genitourinary: Negative for dysuria and hematuria. Musculoskeletal: Positive for arthralgias, back pain and gait problem. Neurological: Negative for dizziness, syncope and headaches. Psychiatric/Behavioral: Negative for confusion, decreased concentration and sleep disturbance. PHYSICAL EXAM: BP 122/60 | Pulse 100 | Temp 35.8 C (96.4 F) | Resp 16 | Ht 1.651 m (5' 5") | Wt 134 kg (295 lb8 oz) | LMP 03/11/2003 | SpO2 94% Comment: with 3 LPM | BMI 49.17 kg/m | BSA 2.48 m Physical Exam Vitals and nursing note [...] Left lower leg: Edema present. Skin: Comments: Right chest incision is healing well. Check ecchymosis improving Neurological: Mental Status: She is alert and oriented to person, place, and time. Mental status is at baseline. Motor: No weakness. Gait: Gait abnormal. Psychiatric: Mood and Affect: Mood normal. Behavior: Behavior normal. Thought Content: Thought content normal. ASSESSMENT/PLAN H/O transcarotid artery revascularization (TCAR) (Primary) Follow with Dr. Tang as scheduled 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 3b chronic kidney disease (HCC) Continue Continue Furosemide Type 2 diabetes mellitus with stage 3b chronic kidney disease, with long-term current use of insulin (HCC) Continue Monjaro, Tresiba, Novolog, and Metformin Chronic hypoxemic respiratory failure (HCC) Continue Oxygen ILD (interstitial lung disease) (HCC) Moderate episode of recurrent major depressive disorder (HCC) Continue Duloxetine and Trazodone DM peripheral angiopathy (HCC) Continue ASA Dyslipidemia Continue Atorvastatin Postsurgical hypothyroidism Continue Levothyroxine History of pulmonary embolus (PE) Continue Apixaban Fibromyalgia Continue Baclofen Abnormality of gait Gastroesophageal reflux disease with esophagitis without hemorrhage Continue Omeprazole Hyperparathyroidism, secondary renal (HCC) Spinal stenosis of lumbar region without neurogenic claudication Continue Oxycodone and Baclofen 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) Atherosclerosis of [place] coronary artery of tu[place] heart without angina pectoris Continue ASA Anxiety state Continue Clonazepam Frank filter in place Recurrent deep vein thrombosis (DVT) of both lower extremities (HCC) Continue Apixaban Nausea Hospital discharge follow-up - DISCH MED RECON CUR MED LIS Follow Up: Return if symptoms worsen or fail to improve. I spent a total of 40-54 minutes (exact time 45 mins) minutes on the date of service in preparation, delivery, and documentation of the care provided to Stephanie Camp excluding any time spent in performance of separately billed services. Galdino Andujar DO Patient location: CLINIC. I was in the same facility as the patient. documented in this encounter Plan of Treatment Upcoming Encounters Date Type Department Care Team (Late st Contact Info) Description 09/14/2023 9:30 AM EST Scheduled Telephone [facility] [place], [address] [place] [address] [facility] Nurse Triage [address] [facility] [place] [address] 09/30/2023 1:00 PM EST Office Visit Family Practice [address] [facility] [address] [facility], [place] [address] Galdino Andujar, [address] [facility], [place] [address] 09/30/2023 1:40 PM EST Office Visit Family Practice [address] [facility] [address] [facility], [place] [phone] College, Pharmacist [address], [place] [address] 10/06/2023 10:00 AM EST Home Visit [facility], [facility] [address] [facility] [place] [address] Vera Capellan RN [address] [facility] [place] [address] 10/20/2023 12:30 PM EST Telemedicine Orthopaedics [facility] [address] [facility] [place] [address] Andrea Paez PA-C [address] [place] [address] 11/11/2023 2:00 PM EST Nurse Only Ancillary [address], [place] [address] College, Nurse Annual Wellness Visit [address] [place], [place] [address] [address] 01/11/2024 1:00 PM EDT Office Visit Cardiology, [facility] [address] [facility] [place] [address] Marjorie Powell PADar [address] [place] [address] Pending Results Name Type Priority Associated Diagnoses Date /Time CBC WITH WBC DIFFERENTIAL Lab Routine 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 3b chronic kidney disease (HCC) 09/13/2023 10:05 AM EST BASIC METABOLIC PANEL Lab Routine 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 3b chronic kidney disease (HCC) 09/13/2023 10:05 AM EST CBC Lab Routine 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 3b chronic kidney disease (HCC) 09/13/2023 10:05 AM EST DIFFERENTIAL, AUTOMATED Lab Routine 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 3b chronic kidney disease (HCC) 09/13/2023 10:05 AM EST Scheduled Orders Name Type Priority Associated Diagnoses Orde r Schedule CBC WITH WBC DIFFERENTIAL Lab Routine 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 3b chronic kidney disease (HCC) Expected: 09/13/2023 (Approximate), Expires: 09/13/2024 BASIC METABOLIC PANEL Lab Routine 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 3b chronic kidney disease (HCC) Expected: 09/13/2023 (Approximate), Expires: 09/12/2024 Scheduled Procedures Name Priority Associated Diagnoses Date/Ti me COLONOSCOPY FLEXIBLE PROXIMAL DIAGNOSTIC Recall Colon cancer screening Health Maintenance Due Date Last Done Comments Cologuard 2000 Fecal Occult Blood Test 2000 Sigmoidoscopy 2000 Hepatitis B (1 of 3 - Risk 3-dose series) 2015 Diabetic Foot Exam 11/01/2023 11/01/2022, 0 01/07/2022, 01/14/2021, Additional history exists TSH 11/01/2023 11/01/2022, 12/25, 12/25/2020, Additional history exists HbA1c 01/24/2024 07/25/2023, 02/24, 02/11/2023, Additional history exists CKD PHOS USE SMARTSET 82072 02/12/202401/24, 01/07/2022, 03/12/2021, Additional history exists GFR 03/08/2024 09/07/2023, 06/28, 03/17/2023, Additional history exists Mammogram 04/21/2024 04/21/2023, 01/24, 10/01/2020, Additional history exists Diabetic Eye Exam 05/09/2024 05/09/2023, , 04/14/2021, Additional history exists CKD HGB USE SMARTSET 17233 07/25/202407/25, 03/17/2023, 03/17/2023, Additional history exists Albumin/Creatinine Ratio 08/05/2024 023, 11/01/2022, 01/07/2022, Additional history exists Depression Screening 09/13/2024 09/13/2023, 06/12/20 18 Colonoscopy 02/17/2026 02/18/2016, 01/25, 01/28/2006, [...] as of this encounter Visit Diagnoses Diagnosis H/O transcarotid artery revascularization (TCAR)- Primary Hypertensive heart and kidney disease with [...] Mylagia and myositis, unspecified Abnormality of gait Gastroesophageal reflux disease with esophagitis without hemorrhage Hyperparathyroidism, secondary renal (HCC) Secondary hyperparathyroidism (of renal origin) Spinal stenosis of lumbar region without neurogenic claudication Spinal stenosis, lumbar region, without neurogenic claudication 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) 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HIT) Atherosclerosis of [place] coronary artery of [place] heart without angina pectoris Anxiety state Anxiety state, unspecified Frank filter in place Other postprocedural status Recurrent deep vein thrombosis (DVT) of both lower extremities (HCC) Nausea Nausea alone Hospital discharge follow-up Other follow-up examination documented in this encounter Administered Medications Inactive Administered Medications - up to 3 most recent administrations Medication Order MAR Action Action Date Dose Rate Site ondansetron (Zofran) tab 4 mg 4 mg, Oral, ONCE, On Tue09/13/23 at 1030, For 1 dose Given 09/13/2023 10:50 AM EST 4 mg documented in this encounter Advance Directives Documents on File Type Date Recorded 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 No Healthcare Agents on File Name Relationship Healthcare Agent Relationship Communication Galdino Camp Other - (no specific identity) Health Care Power of Card Scraper Princess Allen Other - (no specific identity) Health Care Power of Card Scraper Care Teams Returner Relationship Specialty Start Date End Date Galdino Andujar DO [address] [place] [address] PCP - General Internal Medicine 01/07/22 documented as of this encounter
--- OUTSIDE RECORDS SUMMARY | 2023-09-19 23:12 | External Medical Summary | Summary of Care ---
Author Name Unknown Organization [facility] Address [address] [place] [address] Phone [phone] Care Team Providers Care Racecar Driver Name Role Phone Galdino Andujar DO Primary Care Provider [phone] Reason for Visit * Reason Onset Date Comments Test Results 09/14/202309/14 Encounter Details Date Type Department Care Team (Late st Contact Info) Description 09/14/2023 Telephone Family Practice 65 [facility], [place] [address] [place] [address] Galdino Andujar DO [address] [place] [address] Test Results (09/14) Allergies Active Allergy Reactions Criticality Noted Date [...] as of this encounter (statuses as of 09/14/2023) Medications Medication Sig Dispensed Refills Start Date [...] > 150. 150 mL 3 3 Active Furosemide 40 MG Oral Tablet [...] IN THE MORNING 30 Capsule 3 Active OneTouch Verio In Vitro Strip (Glucose Blood)Indications:H ypoglycemia,Type 2 diabetes mellitus with stage 3b chronic kidney disease, with long-term current use of insulin (HCC) Use up to 4 times a day E11.9 in case of dexcom failure 100 Strip 11 3 Active Dexcom G7 Sensor Use as directed. (From Gaboro) 0 3 Active Levothyroxine Sodium 200 MCG [...] Oral Tablet (Levoxyl)Indication s:Hyperparathyroidi sm, secondary renal ([facility]) Take 1 Tablet by mouth daily first [...] the skin once a week. 2 mL 3 07/13/20 24 Active BD Pen Needle [...] of 7.0%-8.0% ([facility]) INJECT 50 UNITS UNDER THE SKIN IN [...] AT BEDTIME 60 Tablet 0 3 Active metFORMIN HCl ER 500 MG Oral Tablet Extended Release 24 Hour (Glucophage XR)Indications:Type 2 diabetes mellitus with hemoglobin A1c goal of less than 8.0% ([facility]) TAKE 1 TABLET BY MOUTH ONCE DAILY IN THE MORNING 30 Tablet 5 3 09/14/20 23 Discontinu ed(Medicat ion List Clean Up) documented as of this encounter (statuses as of 09/14/2023) Active Problems Problem Noted Date Diagnosed Date Body mass index (BMI) of 45.0 to 49.9 in adult 1 10/08/2022 Overview: Per Obesity protocol - Per Obesity Taxonomy ICD-10 update of inactive term DM peripheral angiopathy 07/13/2023 Last Assessment & Plan: Now followed by vascular, reports upcoming carotid surgery at [facility]. She states she has rx for atorvastatin and plavix to picking tech at pharmacy. 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 Atherosclerosis of [place] ronary artery without angina pectoris 12/31/2021 [...] evidently given by vascular, has to picking tech rx documented as of this encounter (statuses as of 09/14/2023) Resolved Problems Problem Noted Date Diagnosed Date [...] as of this encounter (statuses as of 09/14/2023) Immunizations Name Administration Dates Next Due COVID-19 mRNA, LNP-s, No Pre serve, 2-Dose Series (Syapse) 01/08/2021,12/18/2020 COVID-19, LNP-s, No Preserve , Navarro-sucrose, Ages 12+ (Syapse) 2022,10/01/2021 COVID-19, MRNA-LNP, 23-24, P F, 30 MCG/0.3 mL, 12 YRS AND ABOVE, IM (PFIZER-Comirnat) 07/26/2023 Pneumococcal Conjugate Vacci ne, 20-valent ([id number]) 03/12/2022 Pneumococcal Polysaccharide PPV23 (Pneumovax) 08/22/2009,06/15/2006 Season [...] Miscellaneous Notes * Telephone Encounter - Flaca Springer LPN - 09/14/2023 12:33 PM EST Call placed to patient and relayed information from Dr. Andujar. Patient acknowledged understanding and states she will comply. Medication list updated. * Telephone Encounter - Flaca Springer LPN - 09/14/2023 12:31 PM EST ----- Message from Galdino Andujar DO sent at 09/14/2023 12:18 PM EST ----- CKD is stable. All other labs are stable Stop Metformin documented in this encounter Plan of Treatment Upcoming Encounters Date Type Department Care Team (Late st Contact Info) Description 09/30/2023 1:00 PM EST Office Visit Family Practice [address] [facility], [place] [address] [place] [phone] Galdino Andujar DO [address] [place] [address] 09/30/2023 1:40 PM EST Office Visit Family Practice 65 [facility] 293 [place] [id number] College, Pharmacist [address] [place] [address] 10/06/2023 10:00 AM EST Home Visit [facility], [facility] 132 [facility] [place] [address] Vera Capellan RN 132 [facility] [place] [address] 10/20/2023 12:30 PM EST Telemedicine Orthopaedics [facility] 132 [facility] [place] [address] Andrea Paez PA-C [address] [place] [address] 11/11/2023 2:00 PM EST Nurse Only Ancillary 65 [facility] 293 [place] [address] [place], Nurse Annual Wellness Visit [address] [place] [address] 01/11/2024 1:00 PM EDT Office Visit Cardiology, [facility] 132 [facility] [place] [address] Marjorie Powell PA-C 132 [facility] [place] [address] Scheduled Procedures Name Priority Associated Diagnoses Date/Ti [...] Additional history exists CKD PHOS USE SMARTSET 06823 02/12/202401/24, 01/07/2022, 03/12/2021, Additional history exists GFR 03/14/2024 09/13/2023, 08/26, 07/25/2023, Additional history exists Mammogram 04/21/2024 04/21/2023, 01/24, 10/01/2020, Additional history exists Diabetic Eye Exam 05/09/2024 05/09/2023, , 04/14/2021, Additional history exists Albumin/Creatinine Ratio 08/05/2024 023, 11/01/2022, 01/07/2022, Additional history exists CKD HGB USE SMARTSET 51869 09/13/202409/13, 09/13/2023, 07/25/2023, Additional history exists Depression Screening 09/13/2024 09/13/2023, [...] on File Type Date Recorded Patient Weight Checker Andre echevarria POL 03/19/2020 4:25 PM POLST [...] the patient have Health Care Power of Puffer Tender? No Healthcare Agents on File Name Relationship Healthcare Agent Relationship Communication Galdino Camp Other - (no specific identity) Health Care Power of Puffer Tender Princess Other - (no specific identity) Health Care Power of Puffer Tender Care Teams Racecar Driver Relationship Specialty Start Date End Date Galdino Andujar DO [address] [place] [address] PCP - General Internal Medicine 01/07/22 documented as of this encounter
--- OUTSIDE RECORDS SUMMARY | 2023-09-19 23:12 | External Medical Summary | Summary of Care ---
Author Name Unknown Organization [facility] Address [address] [facility] [address] Phone [phone] Care Team Providers Care Gun Stocker Name Role Phone Galdino Andujar DO Primary Care Provider [phone] Reason for Visit * Reason Onset Date Comments [facility]: Maintenance 09/14/2023 Encounter Details Date Type Department Care Team (Late st Contact Info) Description 09/14/2023 9:30 AM EST Scheduled Telephone [facility], [facility] 132 [facility] [place] [address] [facility] 132 [facility] [place] [address] Allergies Active Allergy Reactions Criticality Noted Date [...] as of this encounter (statuses as of 09/15/2023) Medications Medication Sig Dispensed Refills Start Date [...] for Cramping. 180 Tablet 3 08/25/2022 Active Acetaminophen 500 MG Oral Tablet (Tylenol) Take 2 Tablets by mouth in the morning and 2 Tablets at noon and 2 Tablets before bedtime. 100 Tablet 0 03/18/2023 Active DIURETIC TITRATION PLAN If no improvement on day 3, contact heart failure managing provider. 1 Each 0 03/18/2023 Active NovoLOG FlexPen 100 UNIT/ML Subcutaneous Solution [...] Sensor Use as directed. (From Gaboro) 0 06/01/2023 Active Levothyroxine Sodium 200 MCG [...] NYHA class 1 and CKD stage 3 ([facility]),Chronic diastolic congestive heart failure (HCC) TAKE 1 TABLET BY MOUTH IN THE MORNING AND AT BEDTIME 60 Tablet 5 07/12/2023 Active Levothyroxine Sodium 50 MCG Oral Tablet (Levoxyl)Indication s:Hyperparathyroidi sm, secondary renal ([facility]) Take 1 Tablet by mouth daily first [...] with hemoglobin A1c goal of 7.0%-8.0% ([facility]) INJECT 50 UNITS UNDER THE SKIN IN [...] Pain, Severe. 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, NYHA class 1 and CKD stage 3 (HCC),Chronic diastolic congestive heart failure (HCC) TAKE 1 TABLET BY MOUTH IN THE MORNING AND AT BEDTIME 60 Tablet 5 09/12/2023 Active DULoxetine HCl 60 MG Oral Capsule Delayed Release Particles (Cymbalta)Indicatio ns:Fibromyalgia,Pete or depressive disorder, recurrent, moderate (HCC) TAKE 1 CAPSULE BY MOUTH ONCE DAILY IN THE MORNING 30 Capsule 5 09/12/2023 Active clonazePAM 0.5 MG Oral Tablet (KlonoPIN)Indicatio ns:Restless legs syndrome,Anxiety state TAKE 1 TABLET BY MOUTH IN THE MORNING AND AT BEDTIME 60 Tablet 0 09/12/2023 Active documented as of this encounter (statuses as of 09/15/2023) Active Problems Problem Noted Date Diagnosed Date Body mass index (BMI) of 45.0 to 49.9 in adult 1 10/08/2022 Overview: Per Obesity protocol - Per Obesity Taxonomy ICD-10 update of inactive term DM peripheral angiopathy 07/13/2023 Last Assessment & Plan: Now followed by vascular, reports upcoming carotid surgery at [facility]. She states she has rx for atorvastatin [...] 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 Atherosclerosis of [place] ronary artery without angina pectoris 12/31/2021 [...] Assessment & Plan: Home PT to start [place] filter in place 08/19/2014 History of pulmonary [...] as of this encounter (statuses as of 09/15/2023) Resolved Problems Problem Noted Date Diagnosed Date [...] as of this encounter (statuses as of 09/15/2023) Immunizations Name Administration Dates Next Due COVID-19 mRNA, LNP-s, No Pre serve, 2-Dose Series (SkyPhrase) 01/08/2021,12/18/2020 COVID-19, LNP-s, No Preserve , Navarro-sucrose, Ages 12+ (Pfizer) 2022,10/01/2021 COVID-19, MRNA-LNP, 23-24, P F, 30 MCG/0.3 mL, 12 YRS AND ABOVE, IM (PFIZER-Comirnaty) 07/26/2023 Pneumococcal Conjugate Vacci ne, 20-valent ([id number]) 03/12/2022 Pneumococcal Polysaccharide PPV23 (Pneumovax) 08/22/2009,06/15/2006 Season [...] Telephone Encounter - Rosio Galan RN - 09/14/2023 1:00 PM EST [facility] Monthly Visit Date: 09/14/2023 Time: 1:00 PM Name: Stephanie Camp : 1955 Monthly follow up call to Stephanie, agreed to telephonic assessment, aware that call is being recorded for training purposes. Problems/Symptoms: HPI: Stephanie reports feeling good today, was discharged from the hospital about a week ago and was taken off of her Metformin, very happy about that. Wears O2@ 3lpm continuously, denies any open areas/rashes to body, no fever/chills, appetite is fair, sleeps well at night, uses walker at all times Constitutional: Weight at 295 lbs, no weakness, and some fatigue, naps during the day Resp: no cough, no sputum, no wheezing, no hemoptysis, and + dyspnea with exertion Cardiac: no chest pain, no orthopnea, no palpitations, + PND, and + chronic dependent edema GI: no pain, no heartburn, no diarrhea, no constipation, no blood/melena, no nausea, no vomiting, LBM was yesterday, is urinating wnl's Musculoskeletal: no swelling and + generalized arthritic pain, has fibromyalgia Neuro: no memory loss, no falling, no vertigo, and + numbness/tingling to both hands/feet Medication Reconciliation: Does patient take medications as ordered: Yes, Romelia Bryant sets up daily pill packs No refills needed at this time Has appointment with [facility] in September 2023 Rosio Galan RN 09/14/2023 documented in this encounter Plan of Treatment Upcoming Encounters Date Type Department Care Team (Late st Contact Info) Description 09/30/2023 1:00 PM EST Office Visit Family Practice 65 [facility] 293 [facility] [place] [address] Galdino Andujar, 293 [place] [address] 09/30/2023 1:40 PM EST Office Visit Family Practice 65 [facility] 293 [facility] [place] [address] College, Pharmacist [address] [address] 10/06/2023 10:00 AM EST Home Visit [facility] 132 [facility] [place] [address] Vera Capellan RN [address] [facility] [place] [address] 10/20/2023 12:30 PM EST Telemedicine Orthopaedics [facility] 132 [facility] [place] [address] Andrea Paez PA-C [address] [place] [phone] 11/11/2023 2:00 PM EST Nurse Only Ancillary 65 [facility] 293 [facility], [place] [address] College, Nurse Annual Wellness Visit [address] [place] [address] [place] [address] 01/11/2024 1:00 PM EDT Office Visit Cardiology, [facility] 132 [place] [address] Marjorie oPwell, EVIN [address] [place] [address] Scheduled Procedures Name Priority Associated Diagnoses Date/Ti [...] Additional history exists CKD PHOS USE SMARTSET 58786 02/12/202401/24, 01/07/2022, 03/12/2021, Additional history exists GFR 03/14/2024 09/13/2023, 08/26, 07/25/2023, Additional history exists Mammogram 04/21/2024 04/21/2023, 01/24, 10/01/2020, Additional history exists Diabetic Eye Exam 05/09/2024 05/09/2023, , 04/14/2021, Additional history exists Albumin/Creatinine Ratio 08/05/2024 023, 11/01/2022, 01/07/2022, Additional history exists CKD HGB USE SMARTSET 05179 09/13/202409/13, 09/13/2023, 07/25/2023, Additional history exists Depression Screening 09/13/2024 09/13/2023, 06/12/20 18 Colonoscopy 02/17/2026 02/18/2016, 0501/2016, 01/28/2006, Additional history exists Colorectal Cancer Screening [...] on File Type Date Recorded Patient Pattern Repair Person Expl anation POLST 03/19/2020 4:25 PM [...] the patient have Health Care Power of [place] Cutting Machine Operator? No Healthcare Agents on File Name Relationship Healthcare Agent Relationship Communication Galdino Camp Other - (no specific identity) Health Care Power of [place] Cutting Machine Operator Princesseugene Allen Other - (no specific identity) Health Care Power of [place] Cutting Machine Operator Care Teams Gun Stocker Relationship Specialty Start Date End Date Galdino Andjuar DO [address] [place] [address] PCP - General Internal Medicine 01/07/22 documented as of this encounter
--- OUTSIDE RECORDS SUMMARY | 2023-09-19 23:13 | External Medical Summary ---
Author Name Unknown Address Unknown Organization [id number]:[facility] - [address] [facility]. [facility] [address] Laboratory Report Ordering Provider Test Date Status JAG SHULTZ 09/13/2023 10:05:00 Final Observation Date Value Abnormality Reference (Units ) Status SYNC LEUKOCYTES IN BLOOD BY AUTOMATED COUNT 09/13/2023 10:05:00 12.24 Above high normal 4.00-10.80 (K/uL) Final Segs 09/13/2023 10:05:00 68.8 40.0-75.0 (%) Final Lymphs % 09/13/2023 10:05:00 20.5 18.0-42.0 (%) Final Monos 09/13/2023 10:05:00 5.9 1.0-11.0 (%) Final Eosinophils 09/13/2023 10:05:00 3.8 0.0-6.0 (%) Final Basos 09/13/2023 10:05:00 0.3 0.0-2.0 (%) Final Immature Granulocyte, Percent 09/13/2023 10:05:00 0.7 0.0-2.0 (%) Final Absolute Segs 09/13/2023 10:05:00 8.43 Above high normal 1.80-7.70 (K/uL) Final Lymphs, absolute 09/13/2023 10:05:00 2.51 1.00-4.80 (K/ul) Final Monos, Abs 09/13/2023 10:05:00 0.72 0.00-1.10 (K/uL) Final Eos, Abs 09/13/2023 10:05:00 0.46 0.00-0.70 (K/uL) Final Basos, Abs 09/13/2023 10:05:00 0.04 0.00-0.20 (K/uL) Final Immature Granulocytes, Number 09/13/2023 10:05:00 0.08 0.00-0.20 (K/uL) Final Performing Location [facility] - [address] [facility] [address]
--- OUTSIDE RECORDS SUMMARY | 2023-09-19 23:13 | External Medical Summary | Summary of Care ---
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 30 Tablet 1 2 Active Acetaminophen 500 MG Oral Tablet [...] 1 Capsule before bedtime. 0 3 Active NovoLOG FlexPen 100 UNIT/ML Subcutaneous Solution Pen-injector (insulin aspart)Indications :Type 2 diabetes mellitus with hemoglobin A1c goal of 7.0%-8.0% ([facility]) Inject 8 units with breakfast and 8units lunch and 10 units with dinner + sliding scale 1 units for every 25 units BG > 150. 150 mL 3 3 Active metFORMIN HCl ER 500 MG Oral Tablet Extended Release 24 Hour (Glucophage XR)Indications:Typ e 2 diabetes mellitus with hemoglobin A1c goal of less than 8.0% ([facility]) TAKE 1 TABLET BY MOUTH ONCE DAILY [...] (Cymbalta)Indicati ons:Fibromyalgia,M ajor depressive disorder, recurrent, moderate (HCC) TAKE 1 CAPSULE BY MOUTH ONCE DAILY IN THE MORNING 30 Capsule 5 3 Active OneTouch Lexi In Vitro Strip (Glucose Blood)Indications: Hypoglycemia,Type 2 diabetes mellitus with stage 3b chronic kidney disease, with long-term current use of insulin (HCC) Use up to 4 times a day E11.9 in case of dexcom failure 100 Strip 11 3 Active Dexcom G7 Sensor Use as directed. (From [facility]) 0 3 Active Levothyroxine Sodium 200 [...] [facility] INJECT 50 UNITS UNDER THE SKIN IN [...] (Requip)Indication s:Restless legs syndrome Take 1 Tablet by mouth [...] 3 ([facility]),Chronic diastolic congestive heart failure (HCC) TAKE 1 TABLET BY MOUTH IN THE MORNING AND AT BEDTIME 60 Tablet 5 3 Active DULoxetine HCl 60 MG Oral Capsule Delayed Release Particles (Cymbalta)Indicati ons:Fibromyalgia,M ajor depressive disorder, recurrent, moderate (HCC) TAKE 1 CAPSULE BY MOUTH ONCE DAILY IN THE MORNING 30 Capsule 5 3 Active clonazePAM 0.5 MG Oral Tablet (KlonoPIN)Indicati ons:Restless legs syndrome,Anxiety state TAKE 1 TABLET BY MOUTH IN THE MORNING AND AT BEDTIME 60 Tablet 0 3 Active Potassium Chloride Ayleen ER 20 MEQ Oral Tablet Extended ReleaseIndications :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 Take with 30mg cap to equal 90mg daily. 30 Capsule 5 3 023 Discontinued clonazePAM 0.5 MG Oral Tablet (KlonoPIN)Indicati ons:Restless legs syndrome,Anxiety state TAKE 1 TABLET BY MOUTH IN THE MORNING AND AT BEDTIME 60 Tablet 0 3 023 Discontinued documented as of this encounter (statuses as of 09/12/2023) Active Problems Problem Noted Date Diagnosed Date Body mass index (BMI) of 45.0 to 49.9 in adult 1 10/08/2022 Overview: Per Obesity protocol - Per Obesity Taxonomy ICD-10 update of inactive term DM peripheral angiopathy 07/13/2023 Last Assessment & Plan: Now followed by vascular, reports upcoming carotid surgery at [facility]. She states she has rx for atorvastatin and plavix to picking supervisor at pharmacy. 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 Atherosclerosis of [place] ronary artery without angina pectoris 12/31/2021 [...] evidently given by vascular, has to picking supervisor rx documented as of this encounter (statuses as of 09/12/2023) Resolved Problems Problem Noted Date Diagnosed Date [...] as of this encounter (statuses as of 09/12/2023) Immunizations Name Administration Dates Next Due COVID-19 mRNA, LNP-s, No Pre serve, 2-Dose Series (Scrip-t) 01/08/2021,12/18/2020 COVID-19, LNP-s, No Preserve , Navarro-sucrose, Ages 12+ (Scrip-t) 2022,10/01/2021 COVID-19, MRNA-LNP, 23-24, P F, 30 MCG/0.3 mL, 12 YRS AND ABOVE, IM (PFIZER-Comirnaty) 07/26/2023 Pneumococcal Conjugate Vacci ne, 20-valent ([id number]) 03/12/2022 Pneumococcal Polysaccharide PPV23 (Pneumovax) 08/22/2009,06/15/2006 Season [...] Telephone Encounter - Lexii Andujar DO - 09/12/2023 3:13 PM ESTSigned Prescriptions: Disp Refills Potassium Chloride Ayleen ER 20 MEQ Oral Tab*60 Tab*5 Sig: TAKE 1 TABLET BY MOUTH IN THE MORNING AND AT BEDTIMEAuthorizing Provider: LEXII ANDUJAR DULoxetine HCl 60MG Oral Capsule Delayed *30 Cap*5 Sig: TAKE 1 CAPSULE BY MOUTH ONCE DAILY IN THE MORNINGAuthorizingProvider: LEXII ANDUJAR clonazePAM 0.5 MG Oral Tablet (KlonoPIN) 60 Tab*0 Sig: TAKE 1 TABLETBY MOUTH IN THE MORNING AND AT BEDTIMEAuthorizing Provider: LEXII ANDUJAR * Telephone Encounter - Lexii Andujar DO - 09/12/2023 3:11 PM EST I have reviewed the patients controlled substance dispensing history in the Prescription Drug Monitoring Program in compliance with the [facility] regulations before prescribing a controlled substance. Last Tox Screen Results: Results for orders placed or performed in visit on 11/29/22 PAIN MANAGEMENT DRUG PANEL, URINE W/ INTERPRETATION Result Value Compliance Interpretation Based on the medication information provided: The presence of tramadol and o-desmethyltramadol is CONSISTENT with tramadol use. The presence of 7-aminoclonazepam is CONSISTENT with clonazepam use. Amphetamines Screen, U Negative Benzodiazepines Screen, U Refer to confirmation results (A) Cannabinoids Screen, U Negative Cocaine Metabolite Screen, U Negative Fentanyl Screen, U Negative Hydrocodone Screen, U Negative Methadone Metabolite Screen, U Negative Morphine/Codeine Screen, U Negative Oxycodone Screen, U Negative Valid Interpretation Normal Creatinine, U 32 Narrative Cutoff Concentrations: Drug Level Amphetamines [...] can be found in Results Review. Medication due today * Telephone Encounter - Julia Bravo LPN - 09/12/2023 2:02 PM ESTPending Prescriptions: Disp Refills Potassium Chloride Ayleen ER 20 MEQ Oral Tab*60 Tab*5 Sig: TAKE 1 TABLET BY MOUTH IN THE MORNING AND AT BEDTIME DULoxetine HCl 60 MG Oral Capsule Delayed *30 Cap*5 Sig: TAKE 1 CAPSULE BY MOUTH ONCE DAILY IN THE MORNING clonazePAM 0.5 MG Oral Tablet [Pharmacy Me*60 Tab*0 Sig: TAKE 1 TABLET BY MOUTH IN THE MORNING AND AT BEDTIME ---- * Telephone Encounter - Julia Bravo LPN - 09/12/2023 1:59 PM EST Did you pend patient's preferred pharmacy and medication before forwarding?yes Pharmacy: [facility] [place] [address] [address] [facility] Pending Prescriptions: Disp Refills Potassium Chloride Ayleen ER 20 MEQ Oral Ta*60 Tab*5 Sig: TAKE 1 TABLET BY MOUTH IN THE MORNING AND AT BEDTIME DULoxetine HCl 60 MG Oral Capsule Delayed*30 Cap*5 Sig: TAKE 1 CAPSULE BY MOUTH ONCE DAILY IN THE MORNING clonazePAM 0.5 MG Oral Tablet (KlonoPIN) *60 Tab*0 Sig: TAKE 1 TABLET BY MOUTH IN THE MORNING AND AT BEDTIME Last Visit: Visit date not found (in office), 07/12/2023 (telemedicine) Next Visit: 09/13/2023 If no future appointments scheduled, and last appointment is greater than a year ago, please schedule patient for a follow-up appointment Last date the medication was ordered: 08/11/2023 Is this request for a controlled substance?Yes, What was the last refill date 08/11/2023 w/ quantity 60 and dosage 0.5 mg and Urine Drug Screen Not completed Urine Drug Screen: Results for orders placed or performed in visit on 11/29/22 PAIN MANAGEMENT DRUG PANEL, URINE W/ INTERPRETATION Result Value Compliance Interpretation Based on the medication information provided: The presence of tramadol and o-desmethyltramadol is CONSISTENT with tramadol use. The presence of 7-aminoclonazepam is CONSISTENT with clonazepam use. Amphetamines Screen, U Negative Benzodiazepines Screen, U Refer to confirmation results (A) Cannabinoids Screen, U Negative Cocaine Metabolite Screen, U Negative Fentanyl Screen, U Negative Hydrocodone Screen, U Negative Methadone Metabolite Screen, U Negative Morphine/Codeine Screen, U Negative Oxycodone Screen, U Negative Valid Interpretation Normal Creatinine, U 32 Narrative Cutoff Concentrations: Drug Level Amphetamines [...] AM HGBA1C 7.3 (H) 01/23/2020 11:11 AM * [facility]12/[facility]23 7:54 AM EST Pending Prescriptions: Disp Refills Potassium Chloride Ayleen ER 20 MEQ Oral Tab*60 Tab*5 Sig: TAKE 1TABLET BY MOUTH IN THE MORNING AND AT BEDTIME DULoxetine HCl 60 MG Oral Capsule Delayed *30 Cap*5 Sig: TAKE 1 CAPSULE BY MOUTH ONCE DAILY IN THE MORNING clonazePAM 0.5 MG Oral Tablet [Pharmacy Me*60 Tab*0 Sig: TAKE 1 TABLET BY MOUTH IN THE MORNING AND AT BEDTIME documented in this encounter Plan of Treatment Upcoming Encounters Date Type Department Care Team (Late st Contact Info) Description 09/13/2023 9:20 AM EST Office Visit Family Practice [facility] [address] [place] [address] Lexii Andujar DO [address] [place] [address] 09/13/2023 10:30 AM EST Scheduled Telephone [facility], [facility] [address] [place] [address] [facility] Nurse Triage 132 [facility] [place] [address] 09/30/2023 1:00 PM EST Office Visit Family Practice [facility] [address] [place] [phone] Lexii Andujar, DO 293 [place] [address] 09/30/2023 1:40 PM EST Office Visit Family Practice [facility] [address] [place] [phone] College, Pharmacist [address] [place] [address] 10/06/2023 10:00 AM EST [facility] 132 [facility] [place] [address] Vera Capellan RN [facility] [address] 10/20/2023 12:30 PM EST Telemedicine Orthopaedics [facility] 132 [facility] [place] [address] Andrea Paez PA-C [address] [place] [address] 11/11/2023 2:00 PM EST Nurse Only Ancillary [facility] 293 [facility], [place] [address] College, Nurse Annual Wellness Visit [address], [place] [address] 01/11/2024 1:00 PM EDT Office Visit Cardiology, [facility] 132 [facility] [place] [address] Marjorie Powell PA-C 132 [facility] [place] [address] Scheduled Procedures Name Priority Associated Diagnoses Date/Ti [...] Additional history exists CKD PHOS USE SMARTSET 20273 02/12/202401/24, 01/07/2022, 03/12/2021, Additional history exists Mammogram 04/21/2024 04/21/2023, 01/24, 10/01/2020, Additional history exists Diabetic Eye Exam 05/09/2024 05/09/2023, , 04/14/2021, Additional history exists CKD HGB USE SMARTSET 84896 07/25/202407/25, 03/17/2023, 03/17/2023, Additional history exists Depression [...] heart failure (HCC) Chronic diastolic heart failure Fibromyalgia Mylagia and myositis, unspecified Major depressive disorder, recurrent, moderate (HCC) Major depressive disorder, recurrent episode, moderate Restless legs syndrome Restless legs syndrome (RLS) Anxiety state Anxiety state, unspecified documented in this encounter Advance Directives Documents on File Type Date Recorded Patient Chemist Internship Expl anation POLST 03/19/2020 4:25 PM POLST [...] the patient have Health Care Power of Overage Shortage And Damage Clerk? No Healthcare Agents on File Name Relationship Healthcare Agent Relationship Communication Lexii Camp Other - (no specific identity) Health Care Power of Overage Shortage And Damage Clerk Princess Thrashery Other - (no specific identity) Health Care Power of Overage Shortage And Damage Clerk Care Teams Adventure Therapist Relationship Specialty Start Date End Date Lexii Andujar DO [address] [place] [address] PCP - General Internal Medicine 01/07/22 documented as of this encounter
--- OUTSIDE RECORDS SUMMARY | 2023-09-19 23:13 | External Medical Summary ---
Author Name Unknown Address Unknown Organization K01:[facility] - [address] [place] [address] Laboratory Report Ordering Provider Test Date Status JAG SHULTZ 09/13/2023 10:05:00 Final Observation Date Value Abnormality Reference (Units ) Status BUN 09/13/2023 10:05:00 31 Above high normal 6-20 (mg/dL) Final Creatinine 09/13/2023 10:05:00 1.6 Above high normal 0.5-1.0 (mg/dL) Final Glomerular filtration rate/1.73 sq M.predicted [Volume Rate/Area] in Serum, Plasma or Blood by Creatinine-based formula (CKD-EPI) 09/13/2023 10:05:00 36 Below low normal >=60 (mL/min) Final eGFR is calculated based on the CKD-EPI 2020 equation SODIUM 09/13/2023 10:05:00 137 135-146 (m mol/L) Final Potassium 09/13/2023 10:05:00 4.2 3.5-5.1 (m mol/L) Final Cl 09/13/2023 10:05:00 96 Below low normal 98- 107 (mmol/L) Final CO2 09/13/2023 10:05:00 31 22-32 (mmo l/L) Final Anion gap 09/13/2023 10:05:00 10 7-15 (mmol /L) Final Glucose 09/13/2023 10:05:00 179 Above high normal 70 -120 (mg/dL) Final Calcium 09/13/2023 10:05:00 9.5 8.4-10.2 ( mg/dL) Final Performing Location [facility] - [address] [place] [address]
--- OUTSIDE RECORDS SUMMARY | 2023-09-19 23:13 | External Medical Summary ---
Author Name Unknown Address Unknown Organization K01:[facility] - [address] [facility] [address] Laboratory Report Ordering Provider Test Date Status JAG SHULTZ 09/13/2023 10:05:00 Final Observation Date Value Abnormality Reference (Units ) Status WBC, Total 09/13/2023 10:05:00 12.24 Above high normal 4.00-10.80 (K/uL) Final RBC 09/13/2023 10:05:00 3.55 3.85-5.15 (M/uL) Final Hemoglobin 09/13/2023 10:05:00 10.8 Below low normal 12.0-15.3 (g/dL) Final HCT 09/13/2023 10:05:00 35.1 Below low normal 36.0-45.2 (%) Final MCV 09/13/2023 10:05:00 98.9 81.5-97.5 (fL) Final MCH 09/13/2023 10:05:00 30.4 27.0-34.0 (pg) Final MCHC 09/13/2023 10:05:00 30.8 32.0-36.0 (g/dL) Final RDW 09/13/2023 10:05:00 14.1 11.5-15.5 (%) Final Platelets 09/13/2023 10:05:00 352 140-400 (K/uL) Final MPV 09/13/2023 10:05:00 10.6 6.6-11.1 (fL) Final Nucleated erythrocytes/100 leukocytes [Ratio] in Blood by Automated count 09/13/2023 10:05:00 0 <=0 (/100 WBCs) Final Performing Location [facility] - [address] [place] [address]
--- OUTSIDE RECORDS SUMMARY | 2023-09-19 23:13 | External Medical Summary | Summary of Care ---
Author Name Unknown Organization [facility] Address [address] [place] [address] Phone [phone] Care Team Providers Care Skip Hoist Engineer Name Role Phone Galdino Andujar DO Primary Care Provider [phone] Reason for Visit * Reason Onset Date Comments [facility]: Maintenance 09/13/2023 Encounter Details Date Type Department Care Team (Late st Contact Info) Description 09/13/2023 Telephone [facility], [facility] 132 [place] [address] [facility], Nurse [facility] 132 [place] [address] [facility]: Maintenance Allergies Active Allergy [...] Dexcom G7 Sensor Use as directed. (From [facility]) 0 06/01/2023 Active Levothyroxine Sodium 200 [...] reports upcoming carotid surgery at [facility]. She states she has rx for atorvastatin [...] 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 Atherosclerosis of [place] co ronary artery without angina pectoris 12/31/2021 [...] (PFIZER-Comirnaty) 07/26/2023 Pneumococcal Conjugate Vacci ne, 20-valent ([id number]) 03/12/2022 Pneumococcal Polysaccharide PPV23 (Pneumovax) 08/22/2009,06/15/2006 Season [...] Telephone Encounter - Rosio Galan RN - 09/13/2023 12:21 PM EST Patient currently at PCP appointment will schedule triage call for tomorrow. ROMEO Capps Sewer System Supervisor [facility] documented in this encounter Plan of Treatment Upcoming Encounters Date Type Department Care Team (Late st Contact Info) Description 09/14/2023 9:30 AM EST Scheduled Telephone [facility], [facility] 132 [facility] [place] [address] [facility] 132 [facility] [place] [address] 09/30/2023 1:00 PM EST Office Visit Family Practice [facility] [address] [place] [address] Galdino Andujar DO 293 [facility], [place] [address] 09/30/2023 1:40 PM EST Office Visit Family Practice [facility] [address] [place] [address] College, Pharmacist [address] [address] 10/06/2023 10:00 AM EST [facility] Visit [facility], [facility] 132 [facility] [place] [address] Vera Capellan RN 132 [facility] [place] [address] 10/20/2023 12:30 PM EST Telemedicine Orthopaedics [facility] 132 [facility] [place] [address] Andrea Paez PA-C [address] [place] [address] 11/11/2023 2:00 PM EST Nurse Only Ancillary [facility] 293 [facility], [place] [address] [place], Nurse Annual Wellness Visit 65 [address] [address] 01/11/2024 1:00 PM EDT Office Visit Cardiology, [facility] 132 [facility] [place] [address] Marjorie Powell, PADar 132 [facility] [place] [address] Scheduled Procedures Name Priority Associated Diagnoses Date/Ti [...] Additional history exists CKD PHOS USE SMARTSET 63787 02/12/202401/24, 01/07/2022, 03/12/2021, Additional history exists GFR 03/08/2024 09/07/2023, 06/28, 03/17/2023, Additional history exists Mammogram 04/21/2024 04/21/2023, 01/24, 10/01/2020, Additional history exists Diabetic Eye Exam 05/09/2024 05/09/2023, , 04/14/2021, Additional history exists CKD HGB USE SMARTSET 10918 07/25/202407/25, 03/17/2023, 03/17/2023, Additional history exists Albumin/Creatinine [...] Documents on File Type Date Recorded Patient Rehabilitation Aide Expl anation POLST 03/19/2020 4:25 PM [...] the patient have Health Care Power of Framing Carpenter? No Healthcare Agents on File Name Relationship Healthcare Agent Relationship Communication Galdino Camp Other - (no specific identity) Health Care Power of Framing Carpenter Princess Other - (no specific identity) Health Care Power of Framing Carpenter Care Teams Skip Hoist Engineer Relationship Specialty Start Date End Date Galdino Andujar DO [address] [place] [address] PCP - General Internal Medicine 01/07/22 documented as of this encounter
--- OUTSIDE RECORDS SUMMARY | 2023-09-19 23:13 | External Medical Summary | Summary of Care ---
Author Name Unknown Organization [facility] Address [address] [place] [address] Phone [phone] Care Team Providers Care Data Processing Equipment Repairer Name Role Phone PratimaGaldino DO Primary Care Provider [phone] Reason for Visit * Reason Onset Date Comments Appointment 09/08/2023 Encounter Details Date Type Department Care Team (Late st Contact Info) Description 09/08/2023 Telephone [facility], [facility] [address] [facility] [place] [address] Services, Scheduling [address] [place] [address] Appointment Allergies Active Allergy Reactions Criticality Noted [...] as of this encounter (statuses as of 09/08/2023) Medications Medication Sig Dispensed Refills Start Date End Date Status VALENTINATOUCH DELFRANTZ LANCETS 33G MISC Check blood sugars [...] [facility] [place]),Chronic diastolic congestive heart failure (HCC) TAKE 1 [...] ([facility]) Inject 8 units with breakfast and 8units lunch and 10 units with dinner + sliding scale 1 units for every 25 units BG > 150. 150 mL 3 05/16/2023 Active metFORMIN HCl ER 500 MG Oral Tablet Extended Release 24 Hour (Glucophage XR)Indications:Type 2 diabetes mellitus with hemoglobin A1c goal of less than 8.0% ([facility]) TAKE 1 TABLET BY MOUTH ONCE DAILY [...] G7 Sensor Use as directed. (From [facility]) 0 06/01/2023 Active Levothyroxine Sodium 200 [...] ([facility]) INJECT 50 UNITS UNDER THE SKIN IN [...] as of this encounter (statuses as of 09/08/2023) Active Problems Problem Noted Date Diagnosed Date Body mass index (BMI) of 45.0 to 49.9 in adult 1 10/08/2022 Overview: Per Obesity protocol - Per Obesity Taxonomy ICD-10 update of inactive term DM peripheral angiopathy 07/13/2023 Last Assessment & Plan: Now followed by vascular, reports upcoming carotid surgery at [facility]. She states she has rx for atorvastatin and plavix to cigar packer and picker at pharmacy. 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 Atherosclerosis of [place] co ronary artery without angina pectoris [...] rx evidently given by vascular, has to cigar packer and picker rx documented as of this encounter (statuses as of 09/08/2023) Resolved Problems Problem Noted Date Diagnosed Date [...] as of this encounter (statuses as of 09/08/2023) Immunizations Name Administration Dates Next Due COVID-19 mRNA, LNP-s, No Pre serve, 2-Dose Series ([employer]) 01/08/2021,12/18/2020 COVID-19, LNP-s, No Preserve , Navarro-sucrose, Ages 12+ (Pfizer) 2022,10/01/2021 COVID-19, MRNA-LNP, 23-24, P F, 30 MCG/0.3 mL, 12 YRS AND ABOVE, IM (PFIZER-Comirnaty) 07/26/2023 Pneumococcal Conjugate Vacci ne, 20-valent ([id number]) 03/12/2022 Pneumococcal Polysaccharide PPV23 (Pneumovax) 08/22/2009,06/15/2006 Season [...] money to buy more. Never true 07/26/20 Within the past 12 months, t he [...] Miscellaneous Notes * Telephone Encounter - Migdalia Sher OSA - 09/08/2023 1:21 PM EST Incoming call from Pt will be discharged from hospital and wanted to schedule appt,. Appt was scheduled previously for 09/09/23 @ 3pm. Advised that if she is not going to be home by then to contact us. documented in this encounter Plan of Treatment Upcoming Encounters Date Type Department Care Team (Late st Contact Info) Description 09/09/2023 3:00 PM EST Home Visit [facility] [address] [place] [address] Sathish Lundberg PA-C 132 [place] [address] 09/13/2023 9:20 AM EST Office Visit Family Practice 65 [facility] [phone] Galdino Andujar, 293 [facility], [place] [address] 09/13/2023 10:30 AM EST Scheduled Telephone [facility], [facility] 132 [facility] [place] [address] [facility] Nurse Triage 132 [facility] [place] [address] 09/30/2023 1:00 PM EST Office Visit Family Practice [address], [place] [address] Galdino Andujar, DO 293 [place] [address] 09/30/2023 1:40 PM EST Office Visit Family Practice [address] [place] [address], [place] [phone] College, Pharmacist [address], [place] [address] 10/06/2023 10:00 AM EST Home Visit [facility], [facility] 132 [facility] [place] [address] Vera Capellan RN 132 [facility] [place] [address] 10/20/2023 12:30 PM EST Telemedicine Orthopaedics [facility] 132 [facility] [place] [address] Andrea Paez PA-C [address] [place] [address] 11/11/2023 2:00 PM EST Nurse Only Ancillary [address], [place] [address] College, Nurse Annual Wellness Visit [address] [address] 01/11/2024 1:00 PM EDT Office Visit Cardiology, [facility] [address] [place] [address] Marjorie Powell, EVIN [address] [place] [address] Scheduled Procedures Name Priority Associated Diagnoses Date/Ti [...] Additional history exists CKD PHOS USE SMARTSET 65562 02/12/202401/24, 01/07/2022, 03/12/2021, Additional history exists Mammogram 04/21/2024 04/21/2023, 01/24, 10/01/2020, Additional history exists Diabetic Eye Exam 05/09/2024 05/09/2023, , 04/14/2021, Additional history exists CKD HGB USE SMARTSET 75992 07/25/202407/25, 03/17/2023, 03/17/2023, Additional history exists Depression [...] Documents on File Type Date Recorded Patient Exhibit Display 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 Expl anation POLST 03/19/2020 4:25 PM POLST [...] patient have Health Care Power of Design Printing Machine Set Up Operator? No Healthcare Agents on File Name Relationship Healthcare Agent Relationship Communication Galdino Camp Other - (no specific identity) Health Care Power of Design Printing Machine Set Up Operator Princess Allen Other - (no specific identity) Health Care Power of Design Printing Machine Set Up Operator Care Teams Data Processing Equipment Repairer Relationship Specialty Start Date End Date Galdino Andujar DO [address] [place] [address] PCP - General Internal Medicine 01/07/22 documented as of this encounter
--- OUTSIDE RECORDS SUMMARY | 2023-09-19 23:13 | External Medical Summary | Summary of Care ---
Author Name Unknown Organization [facility] Address [address] [place] [address] Phone [phone] Care Team Providers Care Tube Splicer Name Role Phone Lexii Andujar DO Primary Care Provider [phone] Reason for Visit * Reason Comments eRx-Medication Refill Encounter Details Date Type Department Care Team (Late st Contact Info) Description 09/09/2023 [facility] [address] [facility] [address] Lexii Andujar DO [address] [place] [address] Benign hypertensive heart and kidney disease with [...] End Date Status DEMIAN BISWAS LANCBETTY 33G [facility] Check blood sugars 3-4 times daily 180 [...] goal of 7.0%-8.0% ([facility]) Inject 8 units with breakfast and 8units lunch and 10 units with dinner + sliding scale 1 units for every 25 units BG > 150. 150 mL 3 3 Active metFORMIN HCl ER 500 MG Oral Tablet Extended Release 24 Hour (Glucophage XR)Indications:Typ e 2 diabetes mellitus with hemoglobin A1c goal of less than 8.0% ([facility]) TAKE 1 TABLET BY MOUTH [...] Dexcom G7 Sensor Use as directed. (From [facility]) 0 3 Active Levothyroxine Sodium [...] A1c goal of 7.0%-8.0% ([facility]) INJECT 50 UNITS UNDER THE [...] 1 and CKD stage 3 ([facility]),Chronic diastolic congestive heart failure (HCC) [...] by vascular, reports upcoming carotid surgery at [facility]. She states she has rx [...] 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 Atherosclerosis of [place] co ronary artery without angina pectoris 12/31/2021 [...] mRNA, LNP-s, No Pre serve, 2-Dose Series ([employer]) 01/08/2021,12/18/2020 COVID-19, LNP-s, No Preserve , Navarro-sucrose, Ages 12+ ([employer]) 2022,10/01/2021 COVID-19, MRNA-LNP, 23-24, P F, 30 MCG/0.3 mL, 12 YRS AND ABOVE, IM (PFIZER-Comirnaty) 07/26/2023 Pneumococcal Conjugate Vacci ne, 20-valent ([id number]) 03/12/2022 Pneumococcal Polysaccharide PPV23 (Pneumovax) 08/22/2009,06/15/2006 Season [...] encounter Miscellaneous Notes * Telephone Encounter - Misti Prado PHARM Tech - 09/12/2023 4:03 PM EST Pt calling to request clonazePAM 0.5 MG Oral Tablet (KlonoPIN) . Informed pt that RX is available at their pharmacy. Pt verbalized understanding and stated they will check with their pharmacy regarding this medication. Thank you, Misti Prado Screen Printing Paster I [facility] (formerly Telepharmacy) 09/12/2023,4:03 PM * Telephone Encounter - Lexii Andujar DO [...] Drug Monitoring Program in compliance with the [facility] regulations before prescribing a controlled [...] and medication before forwarding?yes Pharmacy: [facility] [address] [facility] Pending Prescriptions: Disp Refills Potassium Chloride Ayleen [...] 11:11 AM * Telephone Encounter - Pop Greer [facility] - 09/12/2023 7:54 AM EST Pending Prescriptions: [...] AM EST Office Visit Family Practice 65 [facility] 293 [place] [address] Leixi Andujar, DO 293 [facility] [place] [address] 09/13/2023 10:30 AM EST Scheduled Telephone [facility], [facility] 132 [facility] [address] [facility] Nurse Triage 132 [facility] [place] [address] 09/30/2023 1:00 PM EST Office Visit Family Practice 65 [facility] 293 [place] [address] Lexii Andujar, DO 293 [facility] [place] [address] 09/30/2023 1:40 PM EST Office Visit Family Practice [address] [place] [address], [place] [address] College, Pharmacist [address] [place] [address] 10/06/2023 10:00 AM EST [facility] Visit [facility], [facility] 132 [facility] [place] [address] Vera Capellan RN 132 [facility] [place] [address] 10/20/2023 12:30 PM EST Telemedicine Orthopaedics [facility] 132 [facility] [place] [address] Andrea Paez PA-C [address] [place] [address] 11/11/2023 2:00 PM EST Nurse Only Ancillary 65 [facility] 293 [facility], [place] [address] College, Nurse Annual Wellness Visit 65 [facility] 293 [facility], [place] [address] 01/11/2024 1:00 PM EDT Office Visit Cardiology, [facility] [address] [place] [address] Marjorie Powell PA-C [address] [place] [address] Scheduled Procedures Name Priority Associated Diagnoses Date/Ti [...] Additional history exists CKD PHOS USE SMARTSET 68581 02/12/202401/24, 01/07/2022, 03/12/2021, Additional history exists Mammogram 04/21/2024 04/21/2023, 01/24, 10/01/2020, Additional history exists Diabetic Eye Exam 05/09/2024 05/09/2023, , 04/14/2021, Additional history exists CKD HGB USE SMARTSET 78786 07/25/202407/25, 03/17/2023, 03/17/2023, Additional history exists Depression [...] on File Type Date Recorded Patient Call Center Coordinator Expl anation POL 03/19/2020 4:25 PM POLST [...] the patient have Health Care Power of Mathematician? No Healthcare Agents on File Name Relationship Healthcare Agent Relationship Communication Lexii Camp Other - (no specific identity) Health Care Power of Mathematician Princess Allen Other - (no specific identity) Health Care Power of Mathematician Care Teams Tube Splicer Relationship Specialty Start Date End Date Lexii Andujar DO [address] [place] [address] PCP - General Internal Medicine 01/07/22 documented as of this encounter
--- OUTSIDE RECORDS SUMMARY | 2023-09-19 23:13 | External Medical Summary | Summary of Care ---
Author Name Unknown Organization [facility] Address [address] [place] [facility] [place] [address] Phone [phone] Care Team Providers Care Stripper Latex Name Role Phone Galdino Andujar DO Primary Care Provider [phone] Reason for Visit * Reason Onset Date Comments [facility]: Maintenance 09/13/2023 Encounter Details Date Type Department Care Team (Late st Contact Info) Description 09/13/2023 10:30 AM EST Scheduled Telephone [facility], [facility] 132 [facility] [place] [address] [facility] Nurse Triage 132 [facility] [place] [address] Allergies Active Allergy Reactions Criticality Noted Date [...] Dexcom G7 Sensor Use as directed. (From [facility]) 0 06/01/2023 Active Levothyroxine Sodium [...] by vascular, reports upcoming carotid surgery at [facility]. She states she has rx for atorvastatin and plavix to picker tender helper at pharmacy. 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 Atherosclerosis of [place] co ronary artery without angina pectoris 12/31/2021 [...] Assessment & Plan: Home PT to start [place] filter in place 08/19/2014 History of pulmonary [...] rx evidently given by vascular, has to picker tender helper rx documented as of this encounter [...] (PFIZER-Comirnaty) 07/26/2023 Pneumococcal Conjugate Vacci ne, 20-valent ([id number]) 03/12/2022 Pneumococcal Polysaccharide PPV23 (Pneumovax) 08/22/2009,06/15/2006 Season [...] Encounter - Rosio Galan RN - 09/13/2023 1:05 PM EST Patient has PCP appointment today, will call tomorrow for Triage follow up. ROMEO Capps Crew Member [facility] documented in this encounter Plan of Treatment Upcoming Encounters Date Type Department Care Team (Late st Contact Info) Description 09/14/2023 9:30 AM EST Scheduled Telephone [facility], [facility] 132 [facility] [place] [address] [facility] Nurse Triage 132 [facility] [place] [address] 09/30/2023 1:00 PM EST Office Visit Family Practice 65 [facility] 293 [place] [phone] Galdino Andujar DO 293 [facility] [place] [address] 09/30/2023 1:40 PM EST Office Visit Family Practice 65 [facility] 293 [place] [address] College, Pharmacist [address] [place] [address] 10/06/2023 10:00 AM EST [facility] Visit [facility], [facility] 132 [facility] [place] [address] Vera Capellan RN 132 [facility] [place] [address] 10/20/2023 12:30 PM EST Telemedicine Orthopaedics [facility] 132 [facility] [place] [address] Andrea Paez PA-C [address] [place] [address] 11/11/2023 2:00 PM EST Nurse Only Ancillary 65 [facility] 293 [facility] [address] [place], Nurse Annual Wellness Visit [address] [place] [address] 01/11/2024 1:00 PM EDT Office Visit Cardiology, [facility] 132 [facility] [place] [address] Marjorie Powell, PADar 132 [facility] [place] [address] Scheduled Procedures Name Priority Associated Diagnoses Date/Ti [...] Additional history exists CKD PHOS USE SMARTSET 54414 02/12/202401/24, 01/07/2022, 03/12/2021, Additional history exists GFR 03/08/2024 09/07/2023, 06/28, 03/17/2023, Additional history exists Mammogram 04/21/2024 04/21/2023, 01/24, 10/01/2020, Additional history exists Diabetic Eye Exam 05/09/2024 05/09/2023, , 04/14/2021, Additional history exists CKD HGB USE SMARTSET 23396 07/25/202407/25, 03/17/2023, 03/17/2023, Additional history exists Albumin/Creatinine [...] on File Type Date Recorded Patient Lead Massage Therapist Expl anation POLST 03/19/2020 4:25 PM [...] the patient have Health Care Power of Culvert Installer? No Healthcare Agents on File Name Relationship Healthcare Agent Relationship Communication Galdino Camp Other - (no specific identity) Health Care Power of Culvert Installer Princess Other - (no specific identity) Health Care Power of Culvert Installer Care Teams Stripper Latex Relationship Specialty Start Date End Date Galdino Andujar DO 293 [place] [address] PCP - General Internal Medicine 01/07/22 documented as of this encounter
--- OUTSIDE RECORDS SUMMARY | 2023-09-19 23:13 | External Medical Summary | Summary of Care ---
Author Name Unknown Organization [facility] Address [address] [place] [address] Phone [phone] Care Team Providers Care Head Lineman Name Role Phone Galdino Andujar DO Primary Care Provider [phone] Reason for Visit * Reason Comments Dosage Adjustment In Person (Anticoag Cl inic) Medication Management Encounter Details Date Type Department Care Team (Late st Contact Info) Description 09/13/2023 9:00 AM [facility] Pharm[facility] Family Practice [address] [facility] [address] [place] [address] [place], Pharmacist [address] [address] Encounter for long-term (current) use of medications*; Type 2 diabetes mellitus with stage 3b chronic kidney disease, with long-term current use of insulin (HCC) Allergies Active Allergy Reactions Criticality Noted Date [...] End Date Status DEMIAN BISWAS LANCETS 33G [facility] Check blood sugars 3-4 times daily 180 [...] Dexcom G7 Sensor Use as directed. (From [facility]) 0 3 Active Levothyroxine Sodium 200 [...] 3 Active clonazePAM 0.5 MG Oral Tablet (KlonoPIN)Macrinatio ns:Restless legs syndrome,Anxiety state TAKE 1 TABLET BY MOUTH IN THE MORNING AND AT BEDTIME 60 Tablet 0 3 Active Meclizine HCl 12.5 MG Oral Tablet (Antivert)Indicatio ns:Vertigo Take 1 Tablet (12.5 mg) by mouth 3 times a day as needed for Dizziness. 30 Tablet 1 2 09/13/20 Discontinu ed(Medicat ion List Clean Up) Docusate Sodium 100 MG Oral Capsule (Colace) Take 1 Capsule by mouth in the morning and 1 Capsule before bedtime. 0 3 09/13/20 Discontinu ed(Medicat ion List Clean Up) documented [...] vascular, reports upcoming carotid surgery at [facility]. She states she has rx for atorvastatin and plavix to fruit picker machine operator at pharmacy. Type 2 diabetes [...] Last Assessment & Plan: Followed by freddy Gonzalez today Moderate episode of recurrent major depressive [...] given by vascular, has to fruit picker machine operator rx documented as of this [...] mRNA, LNP-s, No Pre serve, 2-Dose Series (Odilo) 01/08/2021,12/18/2020 COVID-19, LNP-s, No Preserve , Navarro-sucrose, Ages 12+ (Pfizer) 2022,10/01/2021 COVID-19, MRNA-LNP, 23-24, P F, 30 MCG/0.3 mL, 12 YRS AND ABOVE, IM (PFIZER-Comirnat) 07/26/2023 Pneumococcal Conjugate Vacci ne, 20-valent (Edaiyez23) 03/12/2022 Pneumococcal Polysaccharide PPV23 (Pneumovax) 08/22/2009,06/15/2006 Season [...] Progress Notes * Henny Duong, Frances Valle, [facility] - 09/13/2023 8:05 AM EST Medication Therapy [facility] - Medication Reconciliation Stephanie Camp is an 68 year old being seen for medication reconciliation after vascular surgery. Prescription insurance information: LEX[employer] Pino Do you have any other prescription coverage: Yes, medicaid Preferred pharmacy: [facility] ([facility]ill [facility]) [x] Problem list reviewed [x] Allergies reviewed and updated if needed [x] Drug interaction check completed [x] HEDIS list addressed Immunizations: Up to Date Date of Hospital Admission/Primary Diagnosis: Vascular surgery 09/06-09/09/23 at [facility] Date of Discharge from Hospital: 09/09/23 Medication changes during admission/on discharge: Added: atorvastatin 20mg daily, clopidogrel 75mg daily, aspirin 81mg daily (added end of June inpreparation for procedure) - patient is to continue these until follow up Modified: Eliquis listed to be held for 2 days but patient reports they told her not to Discontinued: patient receieved argatroban in hospital - report excess bleeding in the OR but nothing listed in the [facility] record. Hgb dropped from 13.2 to 10.6, no blood administered Does the patient currently have all of their medications in their home?: Yes, needs novolog refill and [facility] has it filled 09/10. Does patient have any troubles obtaining medications?: No Labs/Vitals/Risk Scores: The ASCVD Risk score (Marylu DK, et al., 2019) failed to calculate for the following reasons: The patient has a prior [place] or stroke diagnosis BP Readings from Last 3 Encounters: 09/13/23 122/60 08/24/23 140/70 08/06/23 100/74 Recent Labs Units 07/25/23 0000 03/05/23 0000 02/11/23 1131 HEMOGLOBIN A1C - [facility] % -- -- 7.7* HEMOGLOBIN, [id number] LAB 9.2* 7.1 -- Recent Labs Units 09/07/23 0000 07/25/23 0000 03/17/23 1237 ESTIMATED GLOMERULAR FILTRATION RATE - [facility] mL/min -- -- 35* EGFR-[facility] LAB 30.7 27.7 -- Serum creatinine: 1.69 mg/dL 09/07/23 0000 Estimated creatinine clearance: 44.2 mL/min Assessment & Plan: Medication discrepancies identified: not on docusate alone - just in combo with senna-S. Dose/frequency of medications appropriate for current renal function? yes Other medication problems identified: constipation coming out of the hospital - recommended MiralaxPRN until bowels return to normal. Patient education provided: regarding blood sugars and constipation especially with increased pain med requirements post-op. Patient also not eating much. Also reinforced taking acetaminophen with tramadol or oxycodone and making sure > 4- 6 hrs between doses. Referral pended for follow up management of: N/A Summary- Changes & Recommendations: ROSA Med rec completed with patient. Will follow up on sugars in 2 weeks and patient to call [employer] and trouble shoot her erin in the meantime. Repeat med rec visit in 1 year Frances Huerta [facility] Clinical Pharmacist - Mechanical Car Checker Medication Therapy Management Clinic 09/13/2023, 8:05 AM documented in this encounter Plan of Treatment Upcoming Encounters Date Type Department Care Team (Late st Contact Info) Description 09/13/2023 10:30 AM EST Scheduled Telephone [facility] [address] [facility] [address] [facility] Nurse Triage [address] [place] [address] 09/30/2023 1:00 PM EST Office Visit Family Practice [address] [place] [phone] Galdino Andujar DO [address] [place] [address] 09/30/2023 1:40 PM EST Office Visit Family Practice [address] [place] [address] [phone] College, Pharmacist [address] [place] [address] 10/06/2023 10:00 AM EST Home Visit [facility] [place] [address] [place] [address] Vera Capellan, RN [address] [place] [address] 10/20/2023 12:30 PM EST Telemedicine Orthopaedics [facility] [address] [facility] [place] [address] Andrea Paez PA-C [address] [place] [address] 11/11/2023 2:00 PM EST Nurse Only Ancillary [address] [facility] [address] [facility], [place] [address] College, Nurse Annual Wellness Visit [address], [place] [address] 01/11/2024 1:00 PM EDT Office Visit Cardiology, [facility] [address] [facility] [place] [address] Marjorie Powell PA-C [address] [facility] [place] [address] Scheduled Procedures Name Priority Associated Diagnoses Date/Ti [...] Additional history exists CKD PHOS USE SMARTSET 19776 02/12/202401/24, 01/07/2022, 03/12/2021, Additional history exists GFR 03/08/2024 09/07/2023, 06/28, 03/17/2023, Additional history exists Mammogram 04/21/2024 04/21/2023, 01/24, 10/01/2020, Additional history exists Diabetic Eye Exam 05/09/2024 05/09/2023, , 04/14/2021, Additional history exists CKD HGB USE SMARTSET 54210 07/25/202407/25, 03/17/2023, 03/17/2023, Additional history exists Albumin/Creatinine [...] Procedure Name Priority Date/Time Associated Diagnosis Comments CREATININE Routine 09/07/2023 documented in this encounter Results * CREATININE (09/07/2023) CREATININE-OU[facility] 1.69 EGFR-OUTSIDE LAB 30.7 Blood Venous blood specimen / Unknown 09/07/2023 History Per Patient LAB BLOOD ORDERABLES documented in this encounter Visit Diagnoses Diagnosis Encounter for long-term (current) use of medications- Primary Encounter for long-term (current) use of other medications Type 2 diabetes mellitus with stage 3b chronic kidney disease, with long-term current use of insulin (HCC) documented in this encounter Advance Directives Documents on File Type Date Recorded Patient Verifier Operator Expl anation POLST 03/19/2020 4:25 PM [...] the patient have Health Care Power of Organization Development Consultant? No Healthcare Agents on File Name Relationship Healthcare Agent Relationship Communication Galdino Camp Other - (no specific identity) Health Care Power of Organization Development Consultant Princesseugene Allen Other - (no specific identity) Health Care Power of Organization Development Consultant Care Teams Head Lineman Relationship Specialty Start Date End Date Galdino Andujar DO [address] [place] [address] PCP - General Internal Medicine 01/07/22 documented as of this encounter
[2023-09-19] MEDS ORDERED: ACETAMINOPHEN 500 MG TAB PO STA (23:30)
[2023-09-19] MEDS ORDERED: SODIUM CHLORIDE 0.9% 500 ML IV SCH (23:30)
--- NOTE | 2023-09-19 23:38 | Emergency Department Note ---
History of Present Illness General Chief complaint: Flu Like Symptoms Stated complaint: FLU SYMPTOMS Time Seen by Provider: 09/19/23 23:21 History of Present Illness Maximum Pain Intensity: 2 This is a 68-year-old female that presents to the emergency department via ambulance with complaints of "flulike symptoms". The patient notes that her aunt called EMS. Patient notes that EMS picked her up from her place of living as she began with feeling body aches, chills, fever, sore throat, and overall unwell. He notes that she also has abdominal discomfort. Patient does note she often wears 2 to 3 L of oxygen at baseline but reportedly when EMS arrived she was not wearing oxygen and was found to be 80% on room air. 2 L prehospital increased patient's oxygenation to 90% with a pulse of 110 prehospital. Patient does note that earlier this month she had carotid artery surgery. She denies any headache. Home Medications Medication Instructions Recorded Confirmed Type apixaban 5 mg tablet (Eliquis) 5 mg PO BID 09/20/23 09/20/23 History aspirin 81 mg tablet,delayed 81 mg PO DAILY 09/20/23 09/20/23 History release atorvastatin 20 mg tablet 20 mg PO DAILY 09/20/23 09/20/23 History baclofen 10 mg tablet 10 mg PO BID PRN Muscle Spasm 09/20/23 09/20/23 History clonazepam 0.5 mg tablet 0.5 mg PO BID 09/20/23 09/20/23 History clopidogrel 75 mg tablet 75 mg PO DAILY 09/20/23 09/20/23 History duloxetine 60 mg capsule,delayed 60 mg PO DAILY 09/20/23 09/20/23 History release furosemide 40 mg tablet 60 mg PO BID 09/20/23 09/20/23 History gabapentin 300 mg capsule 600 mg PO TID 09/20/23 09/20/23 History insulin aspart U-100 100 unit/mL 8 unit subcut UD 09/20/23 09/20/23 History (3 mL) subcutaneous pen (Novolog FlexPen U-100 Insulin aspart) insulin degludec 100 unit/mL (3 50 unit subcut HS 09/20/23 09/20/23 History mL) subcutaneous pen (Tresiba FlexTouch U-100 insulin) levothyroxine 200 mcg tablet 200 mcg PO DAILY 09/20/23 09/20/23 History levothyroxine 50 mcg tablet 50 mcg PO DAILY 09/20/23 09/20/23 History magnesium oxide 400 mg (241.3 mg 400 mg PO BID 09/20/23 09/20/23 History magnesium) tablet omeprazole 20 mg capsule,delayed 20 mg PO DAILY 09/20/23 09/20/23 History release oxycodone 5 mg tablet 5 mg PO Q6H PRN Pain 09/20/23 09/20/23 History potassium chloride 20 mEq 20 meq PO BID 09/20/23 09/20/23 History tablet,extended release(part/cryst) ropinirole 2 mg tablet 2 mg PO HS 09/20/23 09/20/23 History sennosides 8.6 mg-docusate sodium 1 tab PO BID 09/20/23 09/20/23 History 50 mg tablet (Senna-Time S) tirzepatide 5 mg/0.5 mL 5 mg subcut WK 09/20/23 09/20/23 History subcutaneous pen injector (Kevan) tramadol 50 mg tablet 50 mg PO TID PRN Pain 09/20/23 09/20/23 History trazodone 100 mg tablet 100 mg PO HS 09/20/23 09/20/23 History Allergies Allergy/AdvReac Type Severity Reaction Status Date / Time morphine Allergy Severe Swelling, Verified 09/06/23 06:26 "Violent reaction- almost " dapagliflozin [From Farxiga] Allergy Intermediate Yeast Verified 09/06/23 06:26 infections tetanus toxoid, adsorbed Allergy Intermediate Passed Verified 09/06/23 06:26 out, "got sick" as child bupropion [From Wellbutrin] AdvReac Intermediate Recurrent Verified 09/06/23 06:26 falls as per patient codeine AdvReac Intermediate Hallucinati Verified 09/06/23 06:26 ons empagliflozin AdvReac Intermediate Yeast Verified 09/06/23 06:26 [From Jardiance] infections heparin AdvReac Intermediate HIT, Verified 09/06/23 06:26 "Fluid in lungs" hydrocodone [From Vicodin] AdvReac Intermediate Drowsy Verified 09/06/23 06:26 Past Med/Surg History Medical History Hypomagnesemia Mitral valve stenosis Echo 06/2023: Borderline mild mitral stenosis secondary to severe mitral annular calcification Chronic hypoxemic respiratory failure Cataract, bilateral Lumbago with sciatica Lower extremity pain, bilateral Neuropathy feet On home oxygen therapy 3L continuous CHF (congestive heart failure) Follows with Dr. Woodall Subclavian artery stenosis Cerebrovascular duplex study 06/2023: Retrograde flow in the right vertebral artery. 50-69% proximal right subclavian artery stenosis. Antegrade flow in the left vertebral artery. Normal flow in the left subclavian artery. Carotid stenosis, right Cerebrovascular duplex 07/11/23: 80-99% R ICA stenosis. No hemodynamically significant stenosis in the LICA. Diabetes mellitus, type II CKD (chronic kidney disease), stage III Follows with [facility] on CPAP CPAP + 3L O2 (O2 is continuous) HTN (hypertension) HLD (hyperlipidemia) Morbid obesity HIT (heparin-induced thrombocytopenia) 2008, [facility] then life flight to [place] > "resolved" Depression with anxiety Hypothyroidism History of pulmonary embolism 2008 s/p zoraida filter GERD (gastroesophageal reflux disease) RLS (restless legs syndrome) History of DVT (deep vein thrombosis) 2008 (during ICU [place] admission/PNA) Presence of IVC filter 2008 Fibromyalgia Surgical History Family history of reaction to anesthesia Brother/niece- PONV Brother- "wakes up violent" History of colostomy reversal History of tooth extraction History of arthroscopy left ankle History of incisional hernia repair Nausea and vomiting after administration of anesthetic agent History of colonoscopy History of cholecystectomy History of total right knee replacement History of tracheostomy 06/2009 (per [facility] records), secondary to acute respiratory failure in setting of PNA, reversed a few months later History of thyroidectomy, total 2010 History of colon resection secondary to R colon perforation, resected treated with colostomy and eventual reversal in 2008, Dr. Lerma Family History Father , age 74 Lung cancer Mother , age 45 Cirrhosis Social History Smoking Status: Former smoker Tobacco Type: Cigarettes Cigarettes Per Day: 1996; Second Hand Exposure: Yes (very little in the past); Do You Dip or Chew Tobacco: No; Hx Alcohol Use: No Preferred Language: Wolof Communication Ability: Effective Staff Accountant Required: No Beliefs That Will Affect Care: Spiritual marital status: Single Current Living Situation: Alone Current Living Situation Comment: apartment How many Children do You have: 0 Feels Safe at Home: Yes Assistive Devices: Oxygen - Continuous, Walker and Wheelchair Review of Systems A total of 10 systems reviewed and were otherwise negative Physical Exam Vital Signs Vital Signs - 24 hr 09/19/23 23:12 09/19/23 23:28 09/20/23 01:16 Temperature 38.1 C H Temperature Source Oral Pulse Rate 114 H 115 H 104 H Pulse Rate from SpO2 Sensor 103 H Respiratory Rate 22 13 Blood Pressure 113/92 116/95 Blood Pressure Mean 99 102 Pulse Oximetry 91 95 Oxygen Delivery Method Nasal Cannula Nasal Cannula Oxygen Flow Rate 3 3 Sepsis Recent Fever Within 48 Hours Yes Sepsis New/Unexplained Change in Mental Status N/A Sepsis Action Taken by Nursing No Action Required 09/20/23 01:20 09/20/23 02:00 09/20/23 03:30 Temperature Temperature Source Pulse Rate 98 H 93 H Pulse Rate from SpO2 Sensor 98 H 93 H Respiratory Rate 28 H 21 Blood Pressure Blood Pressure Mean Pulse Oximetry 92 92 94 Oxygen Delivery Method Nasal Cannula Nasal Cannula Nasal Cannula Oxygen Flow Rate 3 2 2 Sepsis Recent Fever Within 48 Hours Sepsis New/Unexplained Change in Mental Status Sepsis Action Taken by Nursing 09/20/23 03:54 09/20/23 04:30 09/20/23 05:00 Temperature Temperature Source Pulse Rate 88 93 H 85 Pulse Rate from SpO2 Sensor Respiratory Rate 16 18 Blood Pressure 130/67 Blood Pressure Mean 88 Pulse Oximetry 93 Oxygen Delivery Method Nasal Cannula Oxygen Flow Rate 3 Sepsis Recent Fever Within 48 Hours Sepsis New/Unexplained Change in Mental Status Sepsis Action Taken by Nursing VITAL SIGNS - Vital signs and nursing notes were reviewed. Tachycardic and febrile. GENERAL -68-year-old female appearing her stated age who is in no acute distress. Communicates well with provider and answers questions appropriately. SKIN - Without rashes. No meningeal or petechial rash. There is a well healing surgical incision overlying the right superior chest wall just inferior to the clavicle with an overlying vertically oriented blue bandage. HEAD - NC/AT. EYES - PERRL with EOMI bilaterally. Sclera anicteric. EARS - No deformities of external structures noted on gross examination bilaterally. NOSE - Midline and without cyanosis. No epistaxis or purulent drainage noted. MOUTH/OROPHARYNX - Without perioral cyanosis. NECK - Neck with FROM. No nuchal rigidity. LUNGS - Chest wall symmetric without accessory muscle use, intercostals retractions, or central cyanosis. Normal vesicular breath sounds CTA B/L. No wheezes, rales, or rhonchi appreciated. CARDIAC - RRR ABDOMEN - Abdominal contour normal without pulsations or visible masses. BS normoactive all four quadrants. Patient is tender throughout the abdomen upon palpation. No palpable masses, hepatosplenomegaly, or ascites noted. EXTREMITIES - No clubbing or peripheral cyanosis. +5/5 strength noted in UE/LE bilaterally. NEUROLOGIC - Cranial nerves II through XII grossly intact. PSYCH - A&O, patient is tired appearing and has her eyes closed during much of the exam. She does answer questions when asked. Course Administered Medications Piperacillin Sod/Tazobactam (Sod 4.5 gm/ Dextrose) 100 mls @ 25 mls/hr IV Q8H [facility]; Protocol Stop: 09/30/23 06:29 Last Admin: 09/20/23 06:40 Dose: 25 mls/hr Documented By: DANIKA Levothyroxine Sodium (Levothyroxine Sodium 50 Mcg Tablet) 50 mcg PO DAILYBB [facility] Stop: 10/20/23 06:29 Last Admin: 09/20/23 06:43 Dose: 50 mcg Documented By: DANIKA Levothyroxine Sodium (Levothyroxine Sodium 200 Mcg Tablet) 200 mcg PO DAILYBB [facility] Stop: 10/20/23 06:29 Last Admin: 09/20/23 06:43 Dose: 200 mcg Documented By: DANIKA Discontinued Medications Acetaminophen (Acetaminophen 500 Mg Tab) 500 mg PO NOW STA Stop: 09/19/23 23:31 Last Admin: 09/19/23 23:56 Dose: 500 mg Documented By: DANIKA Sodium Chloride (Nss) 500 mls @ 500 mls/hr IV .Q1H ROBERT Stop: 09/20/23 00:29 Last Infusion: 09/20/23 01:00 Dose: Infused Documented By: Admin: 09/19/23 23:57 Dose: 500 mls/hr Documented By: DANIKA Piperacillin Sod/Tazobactam Sod (Zosyn) 4.5 gm in 100 mls @ 200 mls/hr IV NOW ONE Stop: 09/20/23 00:42 Last Infusion: 09/20/23 03:00 Dose: Infused Documented By: Admin: 09/20/23 01:14 Dose: 200 mls/hr Documented By: DANIKA Ketorolac Tromethamine (Ketorolac Tromethamine 15 Mg/Ml Vial) 15 mg IV NOW ONE Stop: 09/20/23 05:19 Last Admin: 09/20/23 06:04 Dose: 15 mg Documented By: DANIKA Medical Decision Making Laboratory Data 09/20/23 07:54 09/20/23 07:54 Lab Results 09/19/23 09/19/23 09/19/23 Range/Units 23:14 23:14 23:14 WBC (4.8-10.8) K/ul RBC (4.20-5.40) M/uL Hgb (12.0-16.0) g/dl Hct (37.0-47.0) % MCV (80.0-100.0) fL MCH (25.0-34.0) pg MCHC (32.0-36.0) g/dL RDW Std Deviation (36.4-46.3) fL RDW Coeff of Adolfo (11.5-14.5) % Plt Count (130-400) K/uL MPV (9.4-12.4) fL Immature Gran % (Auto) % Neut % (Auto) % Lymph % (Auto) % [place] % (Auto) % Eos % (Auto) % Baso % (Auto) % Neut # (Auto) (1.40-6.50) K/uL Lymph # (Auto) (1.20-3.40) K/uL [place] # (Auto) (0.11-0.59) K/uL Eos # (Auto) (0.00-0.50) K/uL Baso # (Auto) (0.00-0.20) K/uL Immature Gran # (Auto) (0.01-0.20) K/uL PT (9.0-12.0) Seconds INR (0.9-1.1) APTT (21-31) Seconds PTT Ratio Sodium (136-145) mmol/L Potassium (3.5-5.1) mmol/L Chloride (98-107) mmol/L Carbon Dioxide (21-32) mmol/L Anion Gap (3-11) BUN (6-23) mg/dl Creatinine (0.6-1.2) mg/dl Est Cr Clr Drug Dosing ml/min Est GFR ( Amer) ml/min Est GFR (Non-Af Amer) ml/min BUN/Creatinine Ratio (10-20) Glucose (70-99(Fasting)) mg/dl Lactate (0.4-2.0) mmol/L Calcium (8.6-10.3) mg/dl Magnesium (1.7-2.4) mg/dl Total Bilirubin (0.2-1.0) mg/dl Direct Bilirubin (0-0.2) mg/dl AST (13-39) U/L ALT (7-52) U/L Alkaline Phosphatase (34-104) U/L Troponin I High Sens (0-14) pg/ml Total Protein (6.0-8.3) gm/dl Albumin (3.4-5.0) gm/dl Procalcitonin (0-0.5) ng/ml Urine Color Urine Appearance (Clear) Urine pH (4.5-7.5) Ur Specific [place] (1.000-1.030) Urine Protein (Negative) Urine Glucose (UA) (Negative) Urine Ketones (Negative) Urine Blood (Negative) Urine Nitrite (Negative) Urine Bilirubin (Negative) Urine Urobilinogen (Negative) Ur Leukocyte Esterase (Negative) Urine WBC (Auto) (0-5) /hpf Urine RBC (Auto) (0-4) /hpf U Hyaline Cast (Auto) (0-5) /lpf U Epithel Cells (Auto) (0-5) /lpf Urine Bacteria (Auto) (Negative) Adenovirus (PCR) Not Detected (NotDetected) B. pertussis DNA (PCR) Not Detected (NotDetected) B.parapertussis DNA PCR Not Detected (NotDetected) C. pneumoniae DNA (PCR) Not Detected (NotDetected) Coronavirus OC43 (PCR) Not Detected (NotDetected) Coronavirus HKU1 (PCR) Not Detected (NotDetected) Coronavirus 229E (PCR) Not Detected (NotDetected) SARS-CoV-2 (PCR) NEGATIVE Not Detected (Negative) Coronavirus NL63 (PCR) Not Detected (NotDetected) Human Metapneumovir PCR Not Detected (NotDetected) Influenza Type A (PCR) Negative Not Detected (Neg) Influenza Type B (PCR) Negative (Neg) M. pneumoniae (PCR) (NotDetected) Parainfluenza 1 (PCR) (NotDetected) Parainfluenza 2 (PCR) (NotDetected) Parainfluenza 3 (PCR) (NotDetected) Parainfluenza 4 (PCR) (NotDetected) RSV (RT-PCR) (Neg) RSV (PCR) (NotDetected) Entero/Rhino (PCR) (NotDetected) Group A Strep (PCR) (NotDetected) 09/19/23 09/19/23 09/19/23 Range/Units 23:14 23:53 23:55 WBC 18.23 H (4.8-10.8) K/ul RBC 3.37 L (4.20-5.40) M/uL Hgb 10.0 L (12.0-16.0) g/dl Hct 32.4 L (37.0-47.0) % MCV 96.1 (80.0-100.0) fL MCH 29.7 (25.0-34.0) pg MCHC 30.9 L (32.0-36.0) g/dL RDW Std Deviation 50.6 H (36.4-46.3) fL RDW Coeff of Adolfo 14.6 H (11.5-14.5) % Plt Count 318 (130-400) K/uL MPV 9.6 (9.4-12.4) fL Immature Gran % (Auto) 0.7 % Neut % (Auto) 88.3 % Lymph % (Auto) 4.1 % [place] % (Auto) 6.4 % Eos % (Auto) 0.2 % Baso % (Auto) 0.3 % Neut # (Auto) 16.11 H (1.40-6.50) K/uL Lymph # (Auto) 0.74 L (1.20-3.40) K/uL [place] # (Auto) 1.16 H (0.11-0.59) K/uL Eos # (Auto) 0.03 (0.00-0.50) K/uL Baso # (Auto) 0.06 (0.00-0.20) K/uL Immature Gran # (Auto) 0.13 (0.01-0.20) K/uL PT 12.1 H (9.0-12.0) Seconds INR 1.1 (0.9-1.1) APTT 30 (21-31) Seconds PTT Ratio 1.1 Sodium 136 (136-145) mmol/L Potassium 3.9 (3.5-5.1) mmol/L Chloride 97 L (98-107) mmol/L Carbon Dioxide 32 (21-32) mmol/L Anion Gap 7 (3-11) BUN 21 (6-23) mg/dl Creatinine 1.69 H (0.6-1.2) mg/dl Est Cr Clr Drug Dosing 45.2 ml/min Est GFR ( Amer) 35.5 ml/min Est GFR (Non-Af Amer) 30.7 ml/min BUN/Creatinine Ratio 12.4 (10-20) Glucose 213 H (70-99(Fasting)) mg/dl Lactate 1.6 (0.4-2.0) mmol/L Calcium 8.3 L (8.6-10.3) mg/dl Magnesium 1.6 L (1.7-2.4) mg/dl Total Bilirubin 0.9 (0.2-1.0) mg/dl Direct Bilirubin 0.2 (0-0.2) mg/dl AST 10 L (13-39) U/L ALT 7 (7-52) U/L Alkaline Phosphatase 80 (34-104) U/L Troponin I High Sens 9.2 (0-14) pg/ml Total Protein 6.6 (6.0-8.3) gm/dl Albumin 3.3 L (3.4-5.0) gm/dl Procalcitonin 0.14 (0-0.5) ng/ml Urine Color Urine Appearance (Clear) Urine pH (4.5-7.5) Ur Specific [place] (1.000-1.030) Urine Protein (Negative) Urine Glucose (UA) (Negative) Urine Ketones (Negative) Urine Blood (Negative) Urine Nitrite (Negative) Urine Bilirubin (Negative) Urine Urobilinogen (Negative) Ur Leukocyte Esterase (Negative) Urine WBC (Auto) (0-5) /hpf Urine RBC (Auto) (0-4) /hpf U Hyaline Cast (Auto) (0-5) /lpf U Epithel Cells (Auto) (0-5) /lpf Urine Bacteria (Auto) (Negative) Adenovirus (PCR) (NotDetected) B. pertussis DNA (PCR) (NotDetected) B.parapertussis DNA PCR (NotDetected) C. pneumoniae DNA (PCR) (NotDetected) Coronavirus OC43 (PCR) (NotDetected) Coronavirus HKU1 (PCR) (NotDetected) Coronavirus 229E (PCR) (NotDetected) SARS-CoV-2 (PCR) (Negative) Coronavirus NL63 (PCR) (NotDetected) Human Metapneumovir PCR (NotDetected) Influenza Type A (PCR) (Neg) Influenza Type B (PCR) Not Detected (Neg) M. pneumoniae (PCR) Not Detected (NotDetected) Parainfluenza 1 (PCR) Not Detected (NotDetected) Parainfluenza 2 (PCR) Not Detected (NotDetected) Parainfluenza 3 (PCR) Not Detected (NotDetected) Parainfluenza 4 (PCR) Not Detected (NotDetected) RSV (RT-PCR) Negative (Neg) RSV (PCR) Not Detected (NotDetected) Entero/Rhino (PCR) Not Detected (NotDetected) Group A Strep (PCR) NOT DETECTED (NotDetected) 09/20/23 Range/Units 01:00 WBC (4.8-10.8) K/ul RBC (4.20-5.40) M/uL Hgb (12.0-16.0) g/dl Hct (37.0-47.0) % MCV (80.0-100.0) fL MCH (25.0-34.0) pg MCHC (32.0-36.0) g/dL RDW Std Deviation (36.4-46.3) fL RDW Coeff of Adolfo (11.5-14.5) % Plt Count (130-400) K/uL MPV (9.4-12.4) fL Immature Gran % (Auto) % Neut % (Auto) % Lymph % (Auto) % [place] % (Auto) % Eos % (Auto) % Baso % (Auto) % Neut # (Auto) (1.40-6.50) K/uL Lymph # (Auto) (1.20-3.40) K/uL [place] # (Auto) (0.11-0.59) K/uL Eos # (Auto) (0.00-0.50) K/uL Baso # (Auto) (0.00-0.20) K/uL Immature Gran # (Auto) (0.01-0.20) K/uL PT (9.0-12.0) Seconds INR (0.9-1.1) APTT (21-31) Seconds PTT Ratio Sodium (136-145) mmol/L Potassium (3.5-5.1) mmol/L Chloride (98-107) mmol/L Carbon Dioxide (21-32) mmol/L Anion Gap (3-11) BUN (6-23) mg/dl Creatinine (0.6-1.2) mg/dl Est Cr Clr Drug Dosing ml/min Est GFR ( Amer) ml/min Est GFR (Non-Af Amer) ml/min BUN/Creatinine Ratio (10-20) Glucose (70-99(Fasting)) mg/dl Lactate (0.4-2.0) mmol/L Calcium (8.6-10.3) mg/dl Magnesium (1.7-2.4) mg/dl Total Bilirubin (0.2-1.0) mg/dl Direct Bilirubin (0-0.2) mg/dl AST (13-39) U/L ALT (7-52) U/L Alkaline Phosphatase (34-104) U/L Troponin I High Sens (0-14) pg/ml Total Protein (6.0-8.3) gm/dl Albumin (3.4-5.0) gm/dl Procalcitonin (0-0.5) ng/ml Urine Color [place] Urine Appearance Turbid A (Clear) Urine pH 8.0 H (4.5-7.5) Ur Specific [place] 1.019 (1.000-1.030) Urine Protein 4+ H (Negative) Urine Glucose (UA) Negative (Negative) Urine Ketones Negative (Negative) Urine Blood 3+ H (Negative) Urine Nitrite Positive A (Negative) Urine Bilirubin Negative (Negative) Urine Urobilinogen Negative (Negative) Ur Leukocyte Esterase 3+ H (Negative) Urine WBC (Auto) >30 H (0-5) /hpf Urine RBC (Auto) >30 H (0-4) /hpf U Hyaline Cast (Auto) 1-5 (0-5) /lpf U Epithel Cells (Auto) 0-5 (0-5) /lpf Urine Bacteria (Auto) 4+ H (Negative) Adenovirus (PCR) (NotDetected) B. pertussis DNA (PCR) (NotDetected) B.parapertussis DNA PCR (NotDetected) C. pneumoniae DNA (PCR) (NotDetected) Coronavirus OC43 (PCR) (NotDetected) Coronavirus HKU1 (PCR) (NotDetected) Coronavirus 229E (PCR) (NotDetected) SARS-CoV-2 (PCR) (Negative) Coronavirus NL63 (PCR) (NotDetected) Human Metapneumovir PCR (NotDetected) Influenza Type A (PCR) (Neg) Influenza Type B (PCR) (Neg) M. pneumoniae (PCR) (NotDetected) Parainfluenza 1 (PCR) (NotDetected) Parainfluenza 2 (PCR) (NotDetected) Parainfluenza 3 (PCR) (NotDetected) Parainfluenza 4 (PCR) (NotDetected) RSV (RT-PCR) (Neg) RSV (PCR) (NotDetected) Entero/Rhino (PCR) (NotDetected) Group A Strep (PCR) (NotDetected) Imaging Data My Impression: Cxr: Per my interpretation: Cardiomegaly. There is prominence of the pulmonary vasculature. Chronic interstitial appearance similar to previous. Radiologist's Impression: Chest X-Ray 09/19/23 23:13 XR chest 1V not portable HISTORY: 68 years-old Female flu like symptoms COMPARISON: CT abdomen and pelvis 09/20/2023, chest radiograph 08/01/20002019 TECHNIQUE: AP view of the chest FINDINGS: Cardiac silhouette is enlarged. Unchanged bilateral hilar prominence with chronic reticular interstitial opacities. No pneumothorax, pleural effusion or lobar airspace consolidation. Degenerative changes of the shoulders and spine. Stent graft from the right neck with adjacent surgical clips. IMPRESSION: 1. Cardiomegaly without acute process. 2. Chronic interstitial lung disease. ACT 112: Negative or not required by law. The above report was generated using voice recognition software. It may contain grammatical, syntax or spelling errors. Electronically signed by: Enrico Gilliland M.D. 09/20/2023 7:36 AM Abdomen/Pelvis CT 09/20/23 00:41 Exam(s): CT ABDOMEN + PELVIS Without Contrast EXAM: CT Abdomen and Pelvis Without Intravenous Contrast CLINICAL HISTORY: Reason for exam: abd pain, fever. TECHNIQUE: Axial computed tomography images of the abdomen and pelvis without intravenous contrast. Automated exposure control was utilized for the study. A dose lowering technique was utilized adhering to the principles of ALARA. COMPARISON: 03/13/2023. FINDINGS: Lung bases: Multifocal bilateral lower lobe atelectasis with interstitial prominence suggestive of interstitial lung disease versus pulmonary fibrosis. Due to thickening of interstitial septa and fullness of the central vessels , cannot exclude vascular congestion. Heart: Mild cardiomegaly with coronary artery calcifications. ABDOMEN: Liver: Unremarkable. Gallbladder and bile ducts: Status post cholecystectomy. No ductal dilation. Pancreas: Unremarkable. No ductal dilation. Spleen: The spleen measures 14.3 cm consistent with mild spinal megaly. Adrenals: Unremarkable. No mass. Kidneys and ureters: Right perinephric stranding with moderate to severe hydronephrosis. No significant enlargement of the right ureter, finding suggestive of right etiology. These findings are stable or slightly progressed in the interval. Due to progressed perinephric stranding, cannot exclude infectious process / pyelonephritis. Stomach and bowel: Moderate to abundant fecal debris within the colon. No obstruction. No mucosal thickening. PELVIS: Appendix: Normal appendix. Bladder: Unremarkable. No stones. Reproductive: Unremarkable as visualized. ABDOMEN and PELVIS: Intraperitoneal space: Unremarkable. No free air. No significant fluid collection. Bones/joints: Advanced degenerative disease of the spine. Soft tissues: Unremarkable. Vasculature: Calcified atherosclerotic disease of aorta with no aneurysm. IVC filter in place . Lymph nodes: Unremarkable. No enlarged lymph nodes. IMPRESSION: 1. Right-sided hydronephrosis, unchanged in the interval. Progressed perinephric and periureteral stranding which may indicate infectious process such as pyelonephritis, clinical correlation recommended. 2. Possible mild constipation. No acute appendicitis or bowel obstruction. 3. Mild splenomegaly. Status post cholecystectomy. Electronically signed by: Nanette Holliday MD 09/20/23 01:21 AM MDM Narrative Patient was seen and evaluated as above in room B10. Review was performed of nursing notes and vital signs. I did review pertinent previous visits and patient history. After obtaining a thorough history and physical examination the above work up was performed. Patient presents to us today for evaluation of feeling unwell. She has bodyaches, chills, fever, sore throat as well as abdominal pain. The patient is tachycardic and febrile on arrival. Acetaminophen was ordered. Fluids were ordered however care was taken to adjust amount noting the patient's history of heart failure. Options of care were discussed with the patient. IV access was established. Labs were drawn. Leukocytosis noted at 18.23. Anemia also noted and similar to earlier this month where it was 10.8. Creatinine is similar to baseline. Hyperglycemia noted. Troponin within normal range. Procalcitonin 0.14. Lactate within normal range. Urinalysis suggest infection. BioFire panel was negative as well as strep test. CT scan was obtained of the abdomen/pelvis and is as above. There is comment of right-sided hydronephrosis unchanged in the interval. Progress perinephric and periureteral stranding may indicate infectious process such as pyelonephritis which I agree with clinically. I suspect the patient does have a UTI that has ascended to the kidneys as the cause of the fever and septic presentation. She was provided IV antibiotics while here in the emergency department. The patient will require hospitalization. Case discussed with the hospitalist service. Please refer to further documentation regarding her stay. EKG reveals what appears to be a sinus rhythm at a rate of 114 bpm. QTc 438. QRS 74. GCS: 15 In the evaluation and treatment of this patient the following differential diagnoses were entertained: Bacteremia, UTI, pyelonephritis, bowel obstruction, pneumonia, postop infection, among others Impression & Plan Sepsis, Acute pyelonephritis Discharge Plan Visit Data Chief Complaint: Flu Like Symptoms Stated Complaint: FLU SYMPTOMS ED Provider: Marleny Lockwood ED Midlevel Provider: Gabriel Naidu Discharge Problem: Sepsis, Acute pyelonephritis Patient Disposition: Admitted As Inpatient Condition: Good Discharge Instructions Interventions: ED Discharge Assessment Last Done: 09/20/23 06:06
[2023-09-19 23:55] LABS: Influenza A virus by PCR Negative (Neg); Influenza B virus by PCR Negative (Neg); RSV by PCR Negative (Neg); SARS CoV2 RNA(COVID-19) Ceph NEGATIVE (Negative)
--- NOTE | 2023-09-20 00:04 | Emergency Department Note ---
ED Visit Note I was consulted by the Advanced Practice Provider. I personally made/approved the management plan and take responsibility for the patient management. I performed a substantive portion of the visit. This includes the aspects of: -History/Physical/Personally seeing the patient -MDM -I independently interpreted the following studies: Portable chest x-ray .
[2023-09-20 00:10] LABS: Basophils # (auto) 0.06 K/uL (0.00-0.20); Basophils % (auto) 0.3 %; Eosinophils # (auto) 0.03 K/uL (0.00-0.50); Eosinophils % (auto) 0.2 %; Hematocrit (blood only) 32.4 % (37.0-47.0); Immature Granulocytes # (auto) 0.13 K/uL (0.01-0.20); Immature Granulocytes % (auto) 0.7 %; Lymphocytes # (auto) 0.74 K/uL (1.20-3.40); Lymphocytes % (auto) 4.1 %; Mean Corpuscular Hemoglobin 29.7 pg (25.0-34.0); Mean Corpuscular Hgb Conc 30.9 g/dL (32.0-36.0); Mean Corpuscular Volume 96.1 fL (80.0-100.0); Mean Platelet Volume 9.6 fL (9.4-12.4); Monocytes # (auto) 1.16 K/uL (0.11-0.59); Monocytes % (auto) 6.4 %; Neutrophils # (auto) 16.11 K/uL (1.40-6.50); Neutrophils % (auto) 88.3 %; Platelet Count 318 K/uL (130-400); RDW Coefficient of Variation 14.6 % (11.5-14.5); RDW Standard Deviation 50.6 fL (36.4-46.3); Red Blood Count 3.37 M/uL (4.20-5.40); White Blood Count 18.23 K/ul (4.8-10.8)
[2023-09-20] MEDS ORDERED: PIPERACILLIN/TAZOBACTAM 4.5 GM/100 ML BAG IV ONE (00:13)
[2023-09-20 00:27] LABS: Albumin Level 3.3 gm/dl (3.4-5.0); BUN Creatinine Ratio 12.4 (10-20); Bilirubin Direct 0.2 mg/dl (0-0.2); Bilirubin,Total 0.9 mg/dl (0.2-1.0); Calcium 8.3 mg/dl (8.6-10.3); Creatinine Clr Calc Pharmacy 45.2 ml/min; Est GFR (African American) 35.5 ml/min; Est GFR (Non-African American) 30.7 ml/min; Magnesium 1.6 mg/dl (1.7-2.4); Potassium 3.9 mmol/L (3.5-5.1); Total Protein 6.6 gm/dl (6.0-8.3)
[2023-09-20 00:34] LABS: Troponin I High Sensitivity 9.2 pg/ml (0-14)
[2023-09-20 00:36] LABS: INR 1.1 (0.9-1.1); Partial Thromboplastin Ratio 1.1; Partial Thromboplastin Time 30 Seconds (21-31); Prothrombin Time 12.1 Seconds (9.0-12.0)
[2023-09-20 01:06] LABS: Adenovirus PCR Not Detected (NotDetected); Bordetella parapertussis PCR Not Detected (NotDetected); Bordetella pertussis PCR Not Detected (NotDetected); Chlamydia pneumoniae PCR Not Detected (NotDetected); Coronavirus 229E PCR Not Detected (NotDetected); Coronavirus CoV-2 (COVID19)PCR Not Detected (NotDetected); Coronavirus HKU1 PCR Not Detected (NotDetected); Coronavirus NL63 PCR Not Detected (NotDetected); Coronavirus OC43PCR Not Detected (NotDetected); Human Metapneumovirus PCR Not Detected (NotDetected); Influenza A PCR Not Detected (NotDetected); Influenza B PCR Not Detected (NotDetected); Mycoplasma pneumoniae PCR Not Detected (NotDetected); Parainfluenza Virus 1 PCR Not Detected (NotDetected); Parainfluenza Virus 2 PCR Not Detected (NotDetected); Parainfluenza Virus 3 PCR Not Detected (NotDetected); Parainfluenza Virus 4 PCR Not Detected (NotDetected); Respiratory Syncytial VirusPCR Not Detected (NotDetected); Rhinovirus/Enterovirus PCR Not Detected (NotDetected)
--- NOTE | 2023-09-20 01:23 | CT Scan Report ---
Exam(s): CT ABDOMEN + PELVIS Without Contrast EXAM: CT Abdomen and Pelvis Without Intravenous Contrast CLINICAL HISTORY: Reason for exam: abd pain, fever. TECHNIQUE: Axial computed tomography images of the abdomen and pelvis without intravenous contrast. Automated exposure control was utilized for the study. A dose lowering technique was utilized adhering to the principles of ALARA. COMPARISON: 03/13/2023. FINDINGS: Lung bases: Multifocal bilateral lower lobe atelectasis with interstitial prominence suggestive of interstitial lung disease versus pulmonary fibrosis. Due to thickening of interstitial septa and fullness of the central vessels , cannot exclude vascular congestion. Heart: Mild cardiomegaly with coronary artery calcifications. ABDOMEN: Liver: Unremarkable. Gallbladder and bile ducts: Status post cholecystectomy. No ductal dilation. Pancreas: Unremarkable. No ductal dilation. Spleen: The spleen measures 14.3 cm consistent with mild spinal megaly. Adrenals: Unremarkable. No mass. Kidneys and ureters: Right perinephric stranding with moderate to severe hydronephrosis. No significant enlargement of the right ureter, finding suggestive of right etiology. These findings are stable or slightly progressed in the interval. Due to progressed perinephric stranding, cannot exclude infectious process / pyelonephritis. Stomach and bowel: Moderate to abundant fecal debris within the colon. No obstruction. No mucosal thickening. PELVIS: Appendix: Normal appendix. Bladder: Unremarkable. No stones. Reproductive: Unremarkable as visualized. ABDOMEN and PELVIS: Intraperitoneal space: Unremarkable. No free air. No significant fluid collection. Bones/joints: Advanced degenerative disease of the spine. Soft tissues: Unremarkable. Vasculature: Calcified atherosclerotic disease of aorta with no aneurysm. IVC filter in place . Lymph nodes: Unremarkable. No enlarged lymph nodes. IMPRESSION: 1. Right-sided hydronephrosis, unchanged in the interval. Progressed perinephric and periureteral stranding which may indicate infectious process such as pyelonephritis, clinical correlation recommended. 2. Possible mild constipation. No acute appendicitis or bowel obstruction. 3. Mild splenomegaly. Status post cholecystectomy. Electronically signed by: Nanette Holliday MD 09/20/23 01:21 AM
[2023-09-20 01:26] LABS: Appearance Urine Turbid (Clear); Bacteria Urine Automated 4+ (Negative); Bilirubin Urine Negative (Negative); Blood Urine 3+ (Negative); Color Urine Orange; Epithelial Cell Urine Auto 0-5 /lpf (0-5); Glucose Urine UA Negative (Negative); Ketones Urine Negative (Negative); Leukocyte Esterase Urine 3+ (Negative); Nitrite Urine Positive (Negative); RBC Urine Automated >30 /hpf (0-4); Specific Gravity Urine 1.019 (1.000-1.030); Urobilinogen Urine Negative (Negative); WBC Urine Automated >30 /hpf (0-5)
[2023-09-20 01:27] LABS: Protein Urine 4+ (Negative)
[2023-09-20] MEDS ORDERED: KETOROLAC TROMETHAMINE 15 MG/ML VIAL IV ONE (05:18)
--- NOTE | 2023-09-20 05:54 | History & Physical Report ---
Date of Service September 20, 2023 Assessment & Plan (1) Illness: Plan: 68-year-old female with past medical history significant for type 2 diabetes, chronic hypoxic respiratory failure on 3 L oxygen, hyperlipidemia, postsurgical hypothyroidism, hyperparathyroidism secondary to renal disease, chronic kidney disease stage IIIb, interstitial lung disease, obstructive sleep apnea on CPAP, chronic diastolic CHF, history of DVT and PE s/p IVC filter, history of heparin- induced thrombocytopenia, venous insufficiency, hypertension, right carotid artery stenosis, morbid obesity, GERD, fibromyalgia, restless leg syndrome, osteoarthritis, lumbar radiculopathy, depression, statin intolerance, abnormality of gait ambulates with walker, anxiety, presents for flu like symptoms and found to have UTI Illness Not feeling well Flulike symptoms Most from UTI Empirically started Zosyn Follow the cultures Follow the response Obstructive sleep apnea CPAP nightly Chronic respiratory failure History of interstitial lung disease Continue oxygen supplementation Chronic diastolic CHF Continue home Lasix and potassium supplements Monitor for volume overload Diabetes Continue home long-acting insulin Sliding scale Will monitor CKD stage III Presented creatinine 1.69 Around baseline Will follow labs Recent right carotid carotid artery procedure Procedure site seems okay History of DVT and PE S/p IVC filter On Eliquis Hypothyroidism On Synthyroid Hypertension On diuretics Will monitor History of depression anxiety On requesting, trazodone and Klonopin Restless leg syndrome On ropinirole DVT prophylaxis on Eliquis Disposition Med/tele Full code History of Present Illness Chief Complaint: Weakness and not feeling well Primary Care Provider: Galdino Andujar DO 68-year-old female with past medical history significant for type 2 diabetes, chronic hypoxic respiratory failure on 3 L oxygen, hyperlipidemia, postsurgical hypothyroidism, hyperparathyroidism secondary to renal disease, chronic kidney disease stage IIIb, interstitial lung disease, obstructive sleep apnea on CPAP, chronic diastolic CHF, history of DVT and PE s/p IVC filter, history of heparin- induced thrombocytopenia, venous insufficiency, hypertension, right carotid artery stenosis, morbid obesity, GERD, fibromyalgia, restless leg syndrome, osteoarthritis, lumbar radiculopathy, depression, statin intolerance, abnormality of gait ambulates with walker, anxiety, presents for flu like symptoms and found to have UTI. Patient having fevers, body aches, nausea, abdominal discomfort, weakness and not feeling well. Currently sleeping. Denies any headache. No blurred visions. No runny nose or sore throat. No headaches. No chest pain or shortness of breath currently. Normal bowel and bladder movements. Hemodynamically stable. Past medical history. As mentioned above Past surgical history. Right total knee arthroplasty. Colonoscopy. Injection of lumbosacral spine. Left knee arthroscopy. Gastrotomy tube placement. Thyroidectomy. Cholecystectomy. Repair of recurrent incisional hernia. Revision of colostomy. Injection of sacroiliac joint. Perforation right colon with colostomy. Right Transcath stent carotid artery with embolic protection on September 06, 2023. Green filter placement through right femoral on July 2009 Social history. Quit smoking 1996. Smoked 1 pack at 15 years. Alcohol rarely. No drug use. Family history. Brother has COPD. Brother from heart disorder. Father had lung cancer. Mother had liver cancer. Paternal grandfather had bone cancer. Allergies Allergy/AdvReac Type Severity Reaction Status Date / Time morphine Allergy Severe Swelling, Verified 09/06/23 06:26 "Violent reaction- almost " dapagliflozin [From Farxiga] Allergy Intermediate Yeast Verified 09/06/23 06:26 infections tetanus toxoid, adsorbed Allergy Intermediate Passed Verified 09/06/23 06:26 out, "got sick" as child bupropion [From Wellbutrin] AdvReac Intermediate Recurrent Verified 09/06/23 06:26 falls as per patient codeine AdvReac Intermediate Hallucinati Verified 09/06/23 06:26 ons empagliflozin AdvReac Intermediate Yeast Verified 09/06/23 06:26 [From Jardiance] infections heparin AdvReac Intermediate HIT, Verified 09/06/23 06:26 "Fluid in lungs" hydrocodone [From Vicodin] AdvReac Intermediate Drowsy Verified 09/06/23 06:26 Home Medications Medication Instructions Recorded Confirmed Type apixaban 5 mg tablet (Eliquis) 5 mg PO BID 09/20/23 09/20/23 History aspirin 81 mg tablet,delayed 81 mg PO DAILY 09/20/23 09/20/23 History release atorvastatin 20 mg tablet 20 mg PO DAILY 09/20/23 09/20/23 History baclofen 10 mg tablet 10 mg PO BID PRN Muscle Spasm 09/20/23 09/20/23 History clonazepam 0.5 mg tablet 0.5 mg PO BID 09/20/23 09/20/23 History clopidogrel 75 mg tablet 75 mg PO DAILY 09/20/23 09/20/23 History duloxetine 60 mg capsule,delayed 60 mg PO DAILY 09/20/23 09/20/23 History release furosemide 40 mg tablet 60 mg PO BID 09/20/23 09/20/23 History gabapentin 300 mg capsule 600 mg PO TID 09/20/23 09/20/23 History insulin aspart U-100 100 unit/mL 8 unit subcut UD 09/20/23 09/20/23 History (3 mL) subcutaneous pen (Novolog FlexPen U-100 Insulin aspart) insulin degludec 100 unit/mL (3 50 unit subcut HS 09/20/23 09/20/23 History mL) subcutaneous pen (Tresiba FlexTouch U-100 insulin) levothyroxine 200 mcg tablet 200 mcg PO DAILY 09/20/23 09/20/23 History levothyroxine 50 mcg tablet 50 mcg PO DAILY 09/20/23 09/20/23 History magnesium oxide 400 mg (241.3 mg 400 mg PO BID 09/20/23 09/20/23 History magnesium) tablet omeprazole 20 mg capsule,delayed 20 mg PO DAILY 09/20/23 09/20/23 History release oxycodone 5 mg tablet 5 mg PO Q6H PRN Pain 09/20/23 09/20/23 History potassium chloride 20 mEq 20 meq PO BID 09/20/23 09/20/23 History tablet,extended release(part/cryst) ropinirole 2 mg tablet 2 mg PO HS 09/20/23 09/20/23 History sennosides 8.6 mg-docusate sodium 1 tab PO BID 09/20/23 09/20/23 History 50 mg tablet (Senna-Time S) tirzepatide 5 mg/0.5 mL 5 mg subcut WK 09/20/23 09/20/23 History subcutaneous pen injector (Mounjaro) tramadol 50 mg tablet 50 mg PO TID PRN Pain 09/20/23 09/20/23 History trazodone 100 mg tablet 100 mg PO HS 09/20/23 09/20/23 History Past Med/Surg History Medical History Hypomagnesemia Mitral valve stenosis Echo 06/2023: Borderline mild mitral stenosis secondary to severe mitral annular calcification Chronic hypoxemic respiratory failure Cataract, bilateral Lumbago with sciatica Lower extremity pain, bilateral Neuropathy feet On home oxygen therapy 3L continuous CHF (congestive heart failure) Follows with Dr. Woodall Subclavian artery stenosis Cerebrovascular duplex study 06/2023: Retrograde flow in the right vertebral artery. 50-69% proximal right subclavian artery stenosis. Antegrade flow in the left vertebral artery. Normal flow in the left subclavian artery. Carotid stenosis, right Cerebrovascular duplex 07/11/23: 80-99% R ICA stenosis. No hemodynamically significant stenosis in the LICA. Diabetes mellitus, type II CKD (chronic kidney disease), stage III Follows with [facility] ELISSA on CPAP CPAP + 3L O2 (O2 is continuous) HTN (hypertension) HLD (hyperlipidemia) Morbid obesity HIT (heparin-induced thrombocytopenia) 2009, [facility] then life flight to [place] > "resolved" Depression with anxiety Hypothyroidism History of pulmonary embolism 2008 s/p zoraida filter GERD (gastroesophageal reflux disease) RLS (restless legs syndrome) History of DVT (deep vein thrombosis) 2008 (during ICU [place] admission/PNA) Presence of IVC filter 2008 Fibromyalgia Surgical History Family history of reaction to anesthesia Brother/niece- PONV Brother- "wakes up violent" History of colostomy reversal History of tooth extraction History of arthroscopy left ankle History of incisional hernia repair Nausea and vomiting after administration of anesthetic agent History of colonoscopy History of cholecystectomy History of total right knee replacement History of tracheostomy 06/2009 (per [facility] records), secondary to acute respiratory failure in setting of PNA, reversed a few months later History of thyroidectomy, total 2010 History of colon resection secondary to R colon perforation, resected treated with colostomy and eventual reversal in 2008, Dr. 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 ENT- oropharynx clear Neck- supple, no JVD. Lungs- clear to auscultation no wheezing or crackles. Heart- regular rhythm; no murmur, no gallop.Right carotid procedure site no erythema seen. Abdomen- normal bowel sounds, soft, nontender, no distension. Extremities- trace pretibial edema, no erythema seen. Neuro- alert, oriented x 3; PERRL, no facial palsy; no dysarthria; moves extremities. Results & Data Results & Data Vital Signs (Past 12 Hours) Vital Signs Temp Pulse Resp BP Pulse Ox O2 Del Method O2 Flow Rate 09/20/23 05:00 85 18 130/67 93 Nasal Cannula 3 09/20/23 04:30 93 H 16 09/20/23 03:54 88 09/20/23 03:30 93 H 21 94 Nasal Cannula 2 09/20/23 02:00 98 H 28 H 92 Nasal Cannula 2 09/20/23 01:20 92 Nasal Cannula 3 09/20/23 01:16 104 H 13 116/95 95 Nasal Cannula 3 09/19/23 23:28 115 H 09/19/23 23:12 38.1 C H 114 H 22 113/92 91 Nasal Cannula 3 Diagnostic Findings Laboratory Results WBC 18.23 K/ul (4.8-10.8) H 09/19/23 23:53 RBC 3.37 M/uL (4.20-5.40) L 09/19/23 23:53 Hgb 10.0 g/dl (12.0-16.0) L 09/19/23 23:53 Hct 32.4 % (37.0-47.0) L 09/19/23 23:53 MCV 96.1 fL (80.0-100.0) 09/19/23 23:53 MCH 29.7 pg (25.0-34.0) 09/19/23 23:53 MCHC 30.9 g/dL (32.0-36.0) L 09/19/23 23:53 RDW Std Deviation 50.6 fL (36.4-46.3) H 09/19/23 23:53 RDW Coeff of Adolfo 14.6 % (11.5-14.5) H 09/19/23 23:53 Plt Count 318 K/uL (130-400) 09/19/23 23:53 MPV 9.6 fL (9.4-12.4) 09/19/23 23:53 Immature Gran % (Auto) 0.7 % 09/19/23 23:53 Neut % (Auto) 88.3 % 09/19/23 23:53 Lymph % (Auto) 4.1 % 09/19/23 23:53 [place] % (Auto) 6.4 % 09/19/23 23:53 Eos % (Auto) 0.2 % 09/19/23 23:53 Baso % (Auto) 0.3 % 09/19/23 23:53 Neut # (Auto) 16.11 K/uL (1.40-6.50) H 09/19/23 23:53 Lymph # (Auto) 0.74 K/uL (1.20-3.40) L 09/19/23 23:53 [place] # (Auto) 1.16 K/uL (0.11-0.59) H 09/19/23 23:53 Eos # (Auto) 0.03 K/uL (0.00-0.50) 09/19/23 23:53 Baso # (Auto) 0.06 K/uL (0.00-0.20) 09/19/23 23:53 Immature Gran # (Auto) 0.13 K/uL (0.01-0.20) 09/19/23 23:53 PT 12.1 Seconds (9.0-12.0) H 09/19/23 23:53 INR 1.1 (0.9-1.1) 09/19/23 23:53 APTT 30 Seconds (21-31) 09/19/23 23:53 PTT Ratio 1.1 09/19/23 23:53 Sodium 136 mmol/L (136-145) 09/19/23 23:53 Potassium 3.9 mmol/L (3.5-5.1) 09/19/23 23:53 Chloride 97 mmol/L (98-107) L 09/19/23 23:53 Carbon Dioxide 32 mmol/L (21-32) 09/19/23 23:53 Anion Gap 7 (3-11) 09/19/23 23:53 BUN 21 mg/dl (6-23) 09/19/23 23:53 Creatinine 1.69 mg/dl (0.6-1.2) H 09/19/23 23:53 Est Cr Clr Drug Dosing 45.2 ml/min 09/19/23 23:53 Est GFR ( Amer) 35.5 ml/min 09/19/23 23:53 Est GFR (Non-Af Amer) 30.7 ml/min 09/19/23 23:53 BUN/Creatinine Ratio 12.4 (10-20) 09/19/23 23:53 Glucose 213 mg/dl (70-99(Fasting)) H 09/19/23 23:53 Lactate 1.6 mmol/L (0.4-2.0) 09/19/23 23:53 Calcium 8.3 mg/dl (8.6-10.3) L 09/19/23 23:53 Magnesium 1.6 mg/dl (1.7-2.4) L 09/19/23 23:53 Total Bilirubin 0.9 mg/dl (0.2-1.0) 09/19/23 23:53 Direct Bilirubin 0.2 mg/dl (0-0.2) 09/19/23 23:53 AST 10 U/L (13-39) L 09/19/23 23:53 ALT 7 U/L (7-52) 09/19/23 23:53 Alkaline Phosphatase 80 U/L (34-104) 09/19/23 23:53 Troponin I High Sens 9.2 pg/ml (0-14) 09/19/23 23:53 Total Protein 6.6 gm/dl (6.0-8.3) 09/19/23 23:53 Albumin 3.3 gm/dl (3.4-5.0) L 09/19/23 23:53 Procalcitonin 0.14 ng/ml (0-0.5) 09/19/23 23:53 Urine Color [place] 09/20/23 01:00 Urine Appearance Turbid (Clear) A 09/20/23 01:00 Urine pH 8.0 (4.5-7.5) H 09/20/23 01:00 Ur Specific [place] 1.019 (1.000-1.030) 09/20/23 01:00 Urine Protein 4+ (Negative) H 09/20/23 01:00 Urine Glucose (UA) Negative (Negative) 09/20/23 01:00 Urine Ketones Negative (Negative) 09/20/23 01:00 Urine Blood 3+ (Negative) H 09/20/23 01:00 Urine Nitrite Positive (Negative) A 09/20/23 01:00 Urine Bilirubin Negative (Negative) 09/20/23 01:00 Urine Urobilinogen Negative (Negative) 09/20/23 01:00 Ur Leukocyte Esterase 3+ (Negative) H 09/20/23 01:00 Urine WBC (Auto) >30 /hpf (0-5) H 09/20/23 01:00 Urine RBC (Auto) >30 /hpf (0-4) H 09/20/23 01:00 U Hyaline Cast (Auto) 1-5 /lpf (0-5) 09/20/23 01:00 U Epithel Cells (Auto) 0-5 /lpf (0-5) 09/20/23 01:00 Urine Bacteria (Auto) 4+ (Negative) H 09/20/23 01:00 Adenovirus (PCR) Not Detected (NotDetected) 09/19/23 23:14 B. pertussis DNA (PCR) Not Detected (NotDetected) 09/19/23 23:14 B.parapertussis DNA PCR Not Detected (NotDetected) 09/19/23 23:14 C. pneumoniae DNA (PCR) Not Detected (NotDetected) 09/19/23 23:14 Coronavirus OC43 (PCR) Not Detected (NotDetected) 09/19/23 23:14 Coronavirus HKU1 (PCR) Not Detected (NotDetected) 09/19/23 23:14 Coronavirus 229E (PCR) Not Detected (NotDetected) 09/19/23 23:14 SARS-CoV-2 (PCR) NEGATIVE (Negative) 09/19/23 23:14 SARS-CoV-2 (PCR) Not Detected (NotDetected) 09/19/23 23:14 Coronavirus NL63 (PCR) Not Detected (NotDetected) 09/19/23 23:14 Human Metapneumovir PCR Not Detected (NotDetected) 09/19/23 23:14 Influenza Type A (PCR) Negative (Neg) 09/19/23 23:14 Influenza Type A (PCR) Not Detected (NotDetected) 09/19/23 23:14 Influenza Type B (PCR) Negative (Neg) 09/19/23 23:14 Influenza Type B (PCR) Not Detected (NotDetected) 09/19/23 23:14 M. pneumoniae (PCR) Not Detected (NotDetected) 09/19/23 23:14 Parainfluenza 1 (PCR) Not Detected (NotDetected) 09/19/23 23:14 Parainfluenza 2 (PCR) Not Detected (NotDetected) 09/19/23 23:14 Parainfluenza 3 (PCR) Not Detected (NotDetected) 09/19/23 23:14 Parainfluenza 4 (PCR) Not Detected (NotDetected) 09/19/23 23:14 RSV (RT-PCR) Negative (Neg) 09/19/23 23:14 RSV (PCR) Not Detected (NotDetected) 09/19/23 23:14 Entero/Rhino (PCR) Not Detected (NotDetected) 09/19/23 23:14 Group A Strep (PCR) NOT DETECTED (NotDetected) 09/19/23 23:55 Impressions Abdomen/Pelvis CT 09/20/23 00:41 Exam(s): CT ABDOMEN + PELVIS Without Contrast EXAM: CT Abdomen and Pelvis Without Intravenous Contrast CLINICAL HISTORY: Reason for exam: abd pain, fever. TECHNIQUE: Axial computed tomography images of the abdomen and pelvis without intravenous contrast. Automated exposure control was utilized for the study. A dose lowering technique was utilized adhering to the principles of ALARA. COMPARISON: 03/13/2023. FINDINGS: Lung bases: Multifocal bilateral lower lobe atelectasis with interstitial prominence suggestive of interstitial lung disease versus pulmonary fibrosis. Due to thickening of interstitial septa and fullness of the central vessels , cannot exclude vascular congestion. Heart: Mild cardiomegaly with coronary artery calcifications. ABDOMEN: Liver: Unremarkable. Gallbladder and bile ducts: Status post cholecystectomy. No ductal dilation. Pancreas: Unremarkable. No ductal dilation. Spleen: The spleen measures 14.3 cm consistent with mild spinal megaly. Adrenals: Unremarkable. No mass. Kidneys and ureters: Right perinephric stranding with moderate to severe hydronephrosis. No significant enlargement of the right ureter, finding suggestive of right etiology. These findings are stable or slightly progressed in the interval. Due to progressed perinephric stranding, cannot exclude infectious process / pyelonephritis. Stomach and bowel: Moderate to abundant fecal debris within the colon. No obstruction. No mucosal thickening. PELVIS: Appendix: Normal appendix. Bladder: Unremarkable. No stones. Reproductive: Unremarkable as visualized. ABDOMEN and PELVIS: Intraperitoneal space: Unremarkable. No free air. No significant fluid collection. Bones/joints: Advanced degenerative disease of the spine. Soft tissues: Unremarkable. Vasculature: Calcified atherosclerotic disease of aorta with no aneurysm. IVC filter in place . Lymph nodes: Unremarkable. No enlarged lymph nodes. IMPRESSION: 1. Right-sided hydronephrosis, unchanged in the interval. Progressed perinephric and periureteral stranding which may indicate infectious process such as pyelonephritis, clinical correlation recommended. 2. Possible mild constipation. No acute appendicitis or bowel obstruction. 3. Mild splenomegaly. Status post cholecystectomy. Electronically signed by: Nanette Holliday MD 09/20/23 01:21 AM ECG Additional Comments: ECG. Accelerated junctional rhythm with rate of 114. Nonspecific ST abnormalities. Code Status & VTE Plan VTE Prophylaxis Plan VTE Prophylaxis will be ordered: Yes
[2023-09-20] MEDS ORDERED: BACLOFEN 10 MG TAB PO PRN (06:07)
[2023-09-20] MEDS ORDERED: GLUCOSE 40% GEL 15 GM TUBE PO PRN (06:07)
[2023-09-20] MEDS ORDERED: CARBOHYDRATES FOR HYPOGLYCEMIA PO PRN (06:07)
[2023-09-20] MEDS ORDERED: POLYETHYLENE (MIRALAX) 17 GM PACK PO PRN (06:07)
[2023-09-20] MEDS ORDERED: DEXTROSE 50% 50 ML SYRINGE IV PRN (06:07)
[2023-09-20] MEDS ORDERED: NITROGLYCERIN SL 0.4 MG/TAB TAB SL PRN (06:07)
[2023-09-20] MEDS ORDERED: GLUCAGON FOR INJ 1 MG VIAL SQ PRN (06:07)
[2023-09-20] MEDS ORDERED: GLUCOSE 10 TAB/TUBE PO PRN (06:07)
[2023-09-20] MEDS: PIPERACILLIN/TAZOBACTAM 4.5 GM in DEXTROSE 5% MINI-B 100 ML IV SCH ×3 (06:40→22:52)
[2023-09-20] MEDS: LEVOTHYROXINE SODIUM 200 MCG TABLET PO SCH (06:43)
[2023-09-20] MEDS: LEVOTHYROXINE SODIUM 50 MCG TABLET PO SCH (06:43)
--- NOTE | 2023-09-20 07:38 | XRay Report ---
XR chest 1V not portable HISTORY: 68 years-old Female flu like symptoms COMPARISON: CT abdomen and pelvis 09/20/2023, chest radiograph 08/01/20002019 TECHNIQUE: AP view of the chest FINDINGS: Cardiac silhouette is enlarged. Unchanged bilateral hilar prominence with chronic reticular interstit ial opacities. No pneumothorax, pleural effusion or lobar airspace consolidation. Degenerative change s of the shoulders and spine. Stent graft from the right neck with adjacent surgical clips. IMPRESSION: 1. Cardiomegaly without acute process. 2. Chronic interstitial lung disease. ACT 112: Negative or not required by law. The above report was generated using voice recognition software. It may contain grammatical, syntax o r spelling errors. Electronically signed by: Enrico Gilliland M.D. 09/20/2023 7:36 AM
[2023-09-20 08:13] LABS: Basophils # (auto) 0.05 K/uL (0.00-0.20); Basophils % (auto) 0.4 %; Eosinophils # (auto) 0.13 K/uL (0.00-0.50); Eosinophils % (auto) 0.9 %; Hematocrit (blood only) 32.6 % (37.0-47.0); Immature Granulocytes # (auto) 0.09 K/uL (0.01-0.20); Immature Granulocytes % (auto) 0.6 %; Lymphocytes # (auto) 1.04 K/uL (1.20-3.40); Lymphocytes % (auto) 7.3 %; Mean Corpuscular Hemoglobin 30.2 pg (25.0-34.0); Mean Corpuscular Hgb Conc 30.7 g/dL (32.0-36.0); Mean Corpuscular Volume 98.5 fL (80.0-100.0); Mean Platelet Volume 9.7 fL (9.4-12.4); Monocytes # (auto) 0.82 K/uL (0.11-0.59); Monocytes % (auto) 5.8 %; Neutrophils # (auto) 12.07 K/uL (1.40-6.50); Platelet Count 292 K/uL (130-400); RDW Coefficient of Variation 14.9 % (11.5-14.5); Red Blood Count 3.31 M/uL (4.20-5.40)
[2023-09-20 08:29] LABS: BUN Creatinine Ratio 12.6 (10-20); Calcium 8.1 mg/dl (8.6-10.3); Creatinine Clr Calc Pharmacy 38.6 ml/min; Est GFR (African American) 29.4 ml/min; Est GFR (Non-African American) 25.3 ml/min; Magnesium 1.9 mg/dl (1.7-2.4); Potassium 3.7 mmol/L (3.5-5.1)
[2023-09-20 08:47] LABS: Estimated Average Glucose 169 mg/dl; Hemoglobin A1C 7.5 % (4.5-5.6)
[2023-09-20] MEDS: ACETAMINOPHEN 325 MG TAB PO PRN ×3 (09:27→21:12)
[2023-09-20] MEDS: oxyCODONE HCL IR 5 MG TAB (IMMEDIATE RELEASE) PO PRN ×2 (09:47→15:39)
[2023-09-20] MEDS: FUROSEMIDE 20 MG TAB PO SCH ×2 (10:27→15:41)
[2023-09-20] MEDS: POTASSIUM CHLORIDE CRTAB 20 MEQ TABCR PO SCH ×2 (10:28→15:41)
[2023-09-20] MEDS: clonazePAM 0.5 MG TAB PO SCH ×2 (10:28→21:12)
[2023-09-20] MEDS: CLOPIDOGREL BISULFATE 75 MG TAB PO SCH (10:28)
[2023-09-20] MEDS: GABAPENTIN 300 MG CAP PO SCH ×3 (10:28→20:43)
[2023-09-20] MEDS: DOCUSATE SODIUM/SENNA 50/8.6MG TAB PO SCH ×2 (10:29→21:12)
[2023-09-20] MEDS: ASPIRIN 81 MG ECTAB PO SCH (10:29)
[2023-09-20] MEDS: ATORVASTATIN 20 MG TAB PO SCH (10:29)
[2023-09-20] MEDS: APIXABAN 5 MG TABLET PO SCH ×2 (10:30→20:42)
[2023-09-20] MEDS: MAGNESIUM OXIDE 400 MG TAB PO SCH ×2 (10:30→20:43)
[2023-09-20] MEDS: DULoxetine HCL 60 MG CAP PO SCH (10:30)
[2023-09-20] MEDS: PANTOprazole 40 MG TAB PO SCH (10:31)
[2023-09-20] MEDS: INSULIN ASPART PER UNIT CHARGE SC SCH ×4 (10:38→21:11)
[2023-09-20] MEDS: traMADol HCL 50 MG TABLET PO PRN ×2 (11:22→21:12)
--- NOTE | 2023-09-20 11:59 | Electrocardiogram Report ---
Test Reason : Blood Pressure : / mmHG Vent. Rate : 114 BPM Atrial Rate : 000 BPM P-R Int : 000 ms QRS Dur : 074 ms QT Int : 318 ms P-R-T Axes : 000 032 052 degrees QTc Int : 438 ms Poor data quality, interpretation may be adversely affected Sinus tachycardia Nonspecific ST abnormality Abnormal ECG Confirmed by Mina Palmer ([id number] on 09/20/2023 11:59:23 AM Referred By: REFERRED SELF Confirmed By:Axel Palmer
[2023-09-20 13:42] LABS: A calco-baum cmplx NotReported Not Detected (NotDetected); Bact fragilis Not Reported Not Detected (NotDetected); Blood Culture Id Panel See PCR Comment (NotDetected); C auris Not Reported Not Detected (NotDetected); CTX-M Resistant Gene Not Detected (NotDetected); Calbicans Not Reported Not Detected (NotDetected); Candida glabrata Not Reported Not Detected (NotDetected); Candida krusei Not Reported Not Detected (NotDetected); Cneoformans/gatti Not Reported Not Detected (NotDetected); Cparapsilosis Not Reported Not Detected (NotDetected); E cloacae compx Not Reported Not Detected (NotDetected); Efaecalis Not Reported Not Detected (NotDetected); Efaecium Not Reported Not Detected (NotDetected); Enterobacterales DETECTED (NotDetected); Enterobacterales Not Reported DETECTED (NotDetected); Escherichia coli Not Reported Not Detected (NotDetected); H influenzae Not Reported Not Detected (NotDetected); IMP Resistant Gene Not Detected (NotDetected); K aerogenes Not Reported Not Detected (NotDetected); KPC Resistant Gene Not Detected (NotDetected); Koxytoca Not Reported DETECTED (NotDetected); Kpneumoniae grp Not Reported Not Detected (NotDetected); Lmonocyt Not Reported Not Detected (NotDetected); N meningitidis Not Reported Not Detected (NotDetected); NDM Resistant Gene Not Detected (NotDetected); OXA 48 Like Resistant Gene Not Detected (NotDetected); P aeruginosa Not Reported Not Detected (NotDetected); Proteus spp Not Reported Not Detected (NotDetected); Salmonella spp Not Reported Not Detected (NotDetected); Smarcescens Not Reported Not Detected (NotDetected); Staph lugdunensis Not Reported Not Detected (NotDetected); Staph spp. Not Reported Not Detected (NotDetected); Staphaureus Not Reported Not Detected (NotDetected); Staphepi Not Reported Not Detected (NotDetected); Stenmaltophilia Not Reported Not Detected (NotDetected); Strep agal(GrpB) Not Reported Not Detected (NotDetected); Strep pneum Not Reported Not Detected (NotDetected); Strep pyog (GrpA) Not Reported Not Detected (NotDetected); Strep spp Not Reported Not Detected (NotDetected); VIM Resistant Gene Not Detected (NotDetected); mcr-1 Colistin Resistant Gene Not Detected (NotDetected)
[2023-09-20] MEDS: traZODone HCL 100 MG TAB PO SCH (20:42)
[2023-09-20] MEDS: rOPINIRole HCL 2 MG TABLET PO SCH (20:42)
[2023-09-20] MEDS: LANTUS PER UNIT CHARGE SC SCH (21:11)
[2023-09-21] MEDS: oxyCODONE HCL IR 5 MG TAB (IMMEDIATE RELEASE) PO PRN ×2 (00:55→12:37)
[2023-09-21] MEDS: ACETAMINOPHEN 325 MG TAB PO PRN (00:55)
[2023-09-21] MEDS: traMADol HCL 50 MG TABLET PO PRN ×2 (05:55→16:32)
[2023-09-21] MEDS: LEVOTHYROXINE SODIUM 200 MCG TABLET PO SCH (05:56)
[2023-09-21] MEDS: PIPERACILLIN/TAZOBACTAM 4.5 GM in DEXTROSE 5% MINI-B 100 ML IV SCH ×3 (05:56→20:05)
[2023-09-21] MEDS: LEVOTHYROXINE SODIUM 50 MCG TABLET PO SCH (05:56)
[2023-09-21 07:45] LABS: Hematocrit (blood only) 28.4 % (37.0-47.0); Hemoglobin 8.9 g/dl (12.0-16.0); Mean Corpuscular Hemoglobin 29.9 pg (25.0-34.0); Mean Corpuscular Hgb Conc 31.3 g/dL (32.0-36.0); Mean Corpuscular Volume 95.3 fL (80.0-100.0); Platelet Count 255 K/uL (130-400); RDW Coefficient of Variation 14.9 % (11.5-14.5); RDW Standard Deviation 51.9 fL (36.4-46.3); Red Blood Count 2.98 M/uL (4.20-5.40); White Blood Count 11.83 K/ul (4.8-10.8)
[2023-09-21 07:58] LABS: BUN Creatinine Ratio 13.2 (10-20); Creatinine Clr Calc Pharmacy 26.8 ml/min; Est GFR (African American) 23.9 ml/min; Est GFR (Non-African American) 20.6 ml/min; Magnesium 1.9 mg/dl (1.7-2.4); Phosphorus 3.8 mg/dl (2.5-4.9); Potassium 3.9 mmol/L (3.5-5.1)
[2023-09-21] MEDS: DULoxetine HCL 60 MG CAP PO SCH (08:20)
[2023-09-21] MEDS: APIXABAN 5 MG TABLET PO SCH ×2 (08:20→20:04)
[2023-09-21] MEDS: ATORVASTATIN 20 MG TAB PO SCH (08:20)
[2023-09-21] MEDS: ASPIRIN 81 MG ECTAB PO SCH (08:20)
[2023-09-21] MEDS: FUROSEMIDE 20 MG TAB PO SCH ×2 (08:20→16:33)
[2023-09-21] MEDS: GABAPENTIN 300 MG CAP PO SCH ×3 (08:20→20:04)
[2023-09-21] MEDS: PANTOprazole 40 MG TAB PO SCH (08:20)
[2023-09-21] MEDS: MAGNESIUM OXIDE 400 MG TAB PO SCH ×2 (08:20→20:03)
[2023-09-21] MEDS: CLOPIDOGREL BISULFATE 75 MG TAB PO SCH (08:21)
[2023-09-21] MEDS: clonazePAM 0.5 MG TAB PO SCH ×2 (08:25→20:06)
[2023-09-21] MEDS: DOCUSATE SODIUM/SENNA 50/8.6MG TAB PO SCH ×2 (08:25→21:16)
[2023-09-21] MEDS: POTASSIUM CHLORIDE CRTAB 20 MEQ TABCR PO SCH ×2 (08:26→16:35)
[2023-09-21] MEDS: INSULIN ASPART PER UNIT CHARGE SC SCH ×4 (09:09→20:50)
--- NOTE | 2023-09-21 12:30 | Hospitalist Progress Note ---
Date of Service September 21, 2023 Assessment & Plan (1) Illness: Plan: 68-year-old female with past medical history significant for type 2 diabetes, chronic hypoxic respiratory failure on 3 L oxygen, hyperlipidemia, postsurgical hypothyroidism, hyperparathyroidism secondary to renal disease, chronic kidney disease stage IIIb, interstitial lung disease, obstructive sleep apnea on CPAP, chronic diastolic CHF, history of DVT and PE s/p IVC filter, history of heparin- induced thrombocytopenia, venous insufficiency, hypertension, right carotid artery stenosis, morbid obesity, GERD, fibromyalgia, restless leg syndrome, osteoarthritis, lumbar radiculopathy, depression, statin intolerance, abnormality of gait ambulates with walker, anxiety, presents for flu like symptoms and found to have UTI Gram negat. bacilli bacteremia UTI Flulike symptoms Empirically started Zosyn Follow the cultures Follow the response ucultx and blood cultx - positive for gram negat. bacilli repeat blood cultx obtained cont. IV zosyn for now, change abx when organism and sensitivities available - consider ID consult Obstructive sleep apnea CPAP nightly Chronic respiratory failure History of interstitial lung disease Continue oxygen supplementation Chronic diastolic CHF - on home Lasix and potassium supplements- hold lasix for now d/t ELSIE Monitor for volume overload Diabetes Continue home long-acting insulin Sliding scale Will monitor ELSIE on CKD stage III Creatinine 1.69 on admission, now increased to 2.3 - hold lasix, will consult nephro - monitor BMP Recent right carotid carotid artery procedure Procedure site looks good - she is supposed to follow up w/ Dr. Tang - consulted however he is actually not available at this time, will need to follow up as outpt History of DVT and PE S/p IVC filter On Eliquis Hypothyroidism On Synthyroid Hypertension On diuretics Will monitor History of depression anxiety On requesting, trazodone and Klonopin Restless leg syndrome On ropinirole DVT prophylaxis on Eliquis Disposition Med/tele Full code Admission and Anticipated Discharge Date Admission Date: September 20, 2023 Subjective Pt seen in follow up of UTI, gram negat. bacilli bacteremia Laying in bed in NAD, overall feels weak and uncomfortable. but w/o any acute chest pain, or shortness of breath, or abd. pain Pt was febrile overnight Cont. on chronic oxygen, Cr increased Review of Systems Review of Systems: All systems reviewed & are unremarkable except as noted in Subjective Physical Exam Physical Exam: General- obese F in NAD, on suppl. O2 Head- atraumatic Eyes- PERRL. ENT- oropharynx clear Neck- supple, no JVD. Lungs- clear to auscultation no wheezing or crackles. Heart- regular rhythm; no murmur, no gallop.Right carotid procedure site no erythema seen. Abdomen- normal bowel sounds, soft, nontender, no distension. + obese abdomen Extremities- trace pretibial edema, no erythema seen. Neuro- alert, oriented x 3; PERRL, no facial palsy; no dysarthria; moves extremities. Results & Data Results & Data Vital Signs (Past 12 Hours) Vital Signs Temp Pulse Pulse Resp BP Pulse Ox O2 Del Method 09/21/23 12:02 36.7 C 88 17 135/62 94 Nasal Cannula 09/21/23 09:08 36.9 C 86 14 125/61 94 Nasal Cannula 09/21/23 07:32 Nasal Cannula, CPAP 09/21/23 06:53 88 09/21/23 04:20 37.4 C 97 H 18 143/62 H 95 Nasal Cannula 09/21/23 01:00 101 H 09/21/23 00:54 38.8 C H 105 H 24 119/63 91 Nasal Cannula 09/21/23 00:26 37.5 C 105 H 16 83/47 L 9 L Nasal Cannula O2 Flow Rate 09/21/23 12:02 4 09/21/23 09:08 4 09/21/23 07:32 3 09/21/23 06:53 09/21/23 04:20 4 09/21/23 01:00 09/21/23 00:54 4 09/21/23 00:26 4 Laboratory Results 09/21/23 09/21/23 09/21/23 Range/Units 12:13 08:31 07:13 WBC 11.83 H (4.8-10.8) K/ul RBC 2.98 L (4.20-5.40) M/uL Hgb 8.9 L (12.0-16.0) g/dl Hct 28.4 L (37.0-47.0) % MCV 95.3 (80.0-100.0) fL MCH 29.9 (25.0-34.0) pg MCHC 31.3 L (32.0-36.0) g/dL RDW Std Deviation 51.9 H (36.4-46.3) fL RDW Coeff of Adolfo 14.9 H (11.5-14.5) % Plt Count 255 (130-400) K/uL MPV 10.0 (9.4-12.4) fL Sodium 136 (136-145) mmol/L Potassium 3.9 (3.5-5.1) mmol/L Chloride 98 (98-107) mmol/L Carbon Dioxide 32 (21-32) mmol/L Anion Gap 6 (3-11) BUN 31 H (6-23) mg/dl Creatinine 2.35 H D (0.6-1.2) mg/dl Est Cr Clr Drug Dosing 26.8 ml/min Est GFR ( Amer) 23.9 ml/min Est GFR (Non-Af Amer) 20.6 ml/min BUN/Creatinine Ratio 13.2 (10-20) Glucose 115 H (70-99(Fasting)) mg/dl POC Glucose 127 H 114 H (70-99) mg/dl Calcium 8.0 L (8.6-10.3) mg/dl Phosphorus 3.8 (2.5-4.9) mg/dl Magnesium 1.9 (1.7-2.4) mg/dl Enterobacterales (PCR) (NotDetected) Klebsiella oxytoca PCR (NotDetected) mcr-1 Colistin Res Gene PCR (NotDetected) blaIMP Car res Gene PCR (NotDetected) KPC-Carbap Res Gene PCR (NotDetected) blaNDM Car Res Gene PCR (NotDetected) OXA-48 Carbapenem Resis Gene (PCR) (NotDetected) blaVIM Car Res Gene PCR (NotDetected) CTX-M Gene Resistance (PCR) (NotDetected) Bld Cult ID Panel PCR (NotDetected) 09/20/23 09/20/23 09/19/23 Range/Units 20:30 17:08 23:49 WBC (4.8-10.8) K/ul RBC (4.20-5.40) M/uL Hgb (12.0-16.0) g/dl Hct (37.0-47.0) % MCV (80.0-100.0) fL MCH (25.0-34.0) pg MCHC (32.0-36.0) g/dL RDW Std Deviation (36.4-46.3) fL RDW Coeff of Adolfo (11.5-14.5) % Plt Count (130-400) K/uL MPV (9.4-12.4) fL Sodium (136-145) mmol/L Potassium (3.5-5.1) mmol/L Chloride (98-107) mmol/L Carbon Dioxide (21-32) mmol/L Anion Gap (3-11) BUN (6-23) mg/dl Creatinine (0.6-1.2) mg/dl Est Cr Clr Drug Dosing ml/min Est GFR ( Amer) ml/min Est GFR (Non-Af Amer) ml/min BUN/Creatinine Ratio (10-20) Glucose (70-99(Fasting)) mg/dl POC Glucose 126 H 181 H (70-99) mg/dl Calcium (8.6-10.3) mg/dl Phosphorus (2.5-4.9) mg/dl Magnesium (1.7-2.4) mg/dl Enterobacterales (PCR) DETECTED A (NotDetected) Klebsiella oxytoca PCR DETECTED A (NotDetected) mcr-1 Colistin Res Gene PCR Not Detected (NotDetected) blaIMP Car res Gene PCR Not Detected (NotDetected) KPC-Carbap Res Gene PCR Not Detected (NotDetected) blaNDM Car Res Gene PCR Not Detected (NotDetected) OXA-48 Carbapenem Resis Gene (PCR) Not Detected (NotDetected) blaVIM Car Res Gene PCR Not Detected (NotDetected) CTX-M Gene Resistance (PCR) Not Detected (NotDetected) Bld Cult ID Panel PCR See PCR Comment (NotDetected) Medications Administered Current Inpatient Medications Acetaminophen (Acetaminophen 325 Mg Tab) 650 mg PO Q4H PRN PRN Reason: Pain or Fever Stop: 10/20/23 06:06 Last Admin: 09/21/23 00:55 Dose: 650 mg Apixaban (Apixaban 5 Mg Tablet) 5 mg PO BID [facility] Stop: 10/20/23 08:59 Last Admin: 09/21/23 08:20 Dose: 5 mg Aspirin (Aspirin 81 Mg Ectab) 81 mg PO DAILY [facility] Stop: 10/20/23 08:59 Last Admin: 09/21/23 08:20 Dose: 81 mg Atorvastatin Calcium (Atorvastatin 20 Mg Tab) 20 mg PO DAILY [facility] Stop: 10/20/23 08:59 Last Admin: 09/21/23 08:20 Dose: 20 mg Baclofen (Baclofen 10 Mg Tab) 10 mg PO BID PRN PRN Reason: Muscle Spasm Stop: 10/20/23 06:06 Clonazepam (Clonazepam 0.5 Mg Tab) 0.5 mg PO BID [facility] Stop: 10/20/23 08:59 Last Admin: 09/21/23 08:25 Dose: 0.5 mg Clopidogrel Bisulfate (Clopidogrel Bisulfate 75 Mg Tab) 75 mg PO DAILY [facility] Stop: 10/20/23 08:59 Last Admin: 09/21/23 08:21 Dose: 75 mg Dextrose (Dextrose 50% 50 Ml Syringe) 25 - 50 ml IV UD PRN; Protocol PRN Reason: Hypoglycemia Protocol Stop: 10/20/23 06:06 Duloxetine HCl (Duloxetine Hcl 60 Mg Cap) 60 mg PO DAILY [facility] Stop: 10/20/23 08:59 Last Admin: 09/21/23 08:20 Dose: 60 mg Furosemide (Furosemide 20 Mg Tab) 60 mg PO BID17 ROBERT Stop: 10/20/23 08:59 Last Admin: 09/21/23 08:20 Dose: 60 mg Gabapentin (Gabapentin 300 Mg Cap) 600 mg PO TID ROBERT Stop: 10/20/23 08:59 Last Admin: 09/21/23 08:20 Dose: 600 mg Glucagon (Glucagon For Inj 1 Mg Vial) 1 mg SQ UD PRN; Protocol PRN Reason: Hypoglycemia Protocol Stop: 10/20/23 06:06 Glucose (Glucose 10 Tab/Tube) 4 - 8 tab PO UD PRN; Protocol PRN Reason: Hypoglycemia Treatment Stop: 10/20/23 06:06 Glucose (Glucose 40% Gel 15 Gm Tube) 15 - 30 gm PO UD PRN; Protocol PRN Reason: Hypoglycemia Protocol Stop: 10/20/23 06:06 Piperacillin Sod/Tazobactam (Sod 4.5 gm/ Dextrose) 100 mls @ 25 mls/hr IV Q8H [facility]; Protocol Stop: 09/30/23 06:29 Last Infusion: 09/21/23 09:58 Dose: Infused Insulin Aspart (Insulin Aspart Per Unit Charge) 0 units SC ACHS [facility] Stop: 10/20/23 07:29 Last Admin: 09/21/23 09:09 Dose: 7 units Insulin Glargine (Lantus Per Unit Charge) 50 units SC HS [facility] Stop: 10/20/23 20:59 Last Admin: 09/20/23 21:11 Dose: 50 units Levothyroxine Sodium (Levothyroxine Sodium 50 Mcg Tablet) 50 mcg PO DAILYBB [facility] Stop: 10/20/23 06:29 Last Admin: 09/21/23 05:56 Dose: 50 mcg Levothyroxine Sodium (Levothyroxine Sodium 200 Mcg Tablet) 200 mcg PO DAILYBB [facility] Stop: 10/20/23 06:29 Last Admin: 09/21/23 05:56 Dose: 200 mcg Magnesium Oxide (Magnesium Oxide 400 Mg Tab) 400 mg PO BID [facility] Stop: 10/20/23 08:59 Last Admin: 09/21/23 08:20 Dose: 400 mg Miscellaneous (Carbohydrates For Hypoglycemia ) 15 - 30 gm PO UD PRN PRN Reason: Hypoglycemia Protocol Stop: 10/20/23 06:06 Nitroglycerin (Nitroglycerin Sl 0.4 Mg/Tab Tab) 0.4 mg SL Q5M PRN PRN Reason: Chest Pain Stop: 10/20/23 06:06 Oxycodone HCl (Oxycodone Hcl Ir 5 Mg Tab (Immediate Release)) 5 mg PO Q6H PRN PRN Reason: Pain Stop: 10/04/23 06:06 Last Admin: 09/21/23 00:55 Dose: 5 mg Pantoprazole Sodium (Pantoprazole 40 Mg Tab) 40 mg PO DAILY [facility] Stop: 10/20/23 08:59 Last Admin: 09/21/23 08:20 Dose: 40 mg Polyethylene Glycol (Polyethylene (Miralax) 17 Gm Pack) 17 gm PO DAILY PRN PRN Reason: Constipation Stop: 10/20/23 06:06 Potassium Chloride (Potassium Chloride Crtab 20 Meq Tabcr) 20 meq PO BIDM [facility] Stop: 10/20/23 07:59 Last Admin: 09/21/23 08:26 Dose: 20 meq Ropinirole HCl (Ropinirole Hcl 2 Mg Tablet) 2 mg PO HS [facility] Stop: 10/20/23 20:59 Last Admin: 09/20/23 20:42 Dose: 2 mg Senna/Docusate Sodium (Docusate Sodium/Senna 50/8.6mg Tab) 1 tab PO BID ROBERT Stop: 10/20/23 08:59 Last Admin: 09/21/23 08:25 Dose: 1 tab Tramadol HCl (Tramadol Hcl 50 Mg Tablet) 50 mg PO TID PRN PRN Reason: Pain Stop: 10/20/23 06:06 Last Admin: 09/21/23 05:55 Dose: 50 mg Trazodone HCl (Trazodone Hcl 100 Mg Tab) 100 mg PO ROBERT Stop: 10/20/23 20:59 Last Admin: 09/20/23 20:42 Dose: 100 mg
[2023-09-21] MEDS: POLYETHYLENE (MIRALAX) 17 GM PACK PO SCH (12:36)
[2023-09-21] MEDS ORDERED: ALBUMIN 25% 25 GM/100 ML VIAL IV ONE (19:54)
[2023-09-21] MEDS: traZODone HCL 100 MG TAB PO SCH (20:03)
[2023-09-21] MEDS: rOPINIRole HCL 2 MG TABLET PO SCH (20:03)
[2023-09-21] MEDS: LANTUS PER UNIT CHARGE SC SCH (20:36)
[2023-09-22] MEDS: PIPERACILLIN/TAZOBACTAM 4.5 GM in DEXTROSE 5% MINI-B 100 ML IV SCH (06:11)
[2023-09-22] MEDS: LEVOTHYROXINE SODIUM 50 MCG TABLET PO SCH (06:12)
[2023-09-22] MEDS: LEVOTHYROXINE SODIUM 200 MCG TABLET PO SCH (06:13)
[2023-09-22 07:30] LABS: Hemoglobin 8.6 g/dl (12.0-16.0); Mean Corpuscular Hemoglobin 29.4 pg (25.0-34.0); Mean Corpuscular Hgb Conc 30.7 g/dL (32.0-36.0); Mean Corpuscular Volume 95.6 fL (80.0-100.0); Mean Platelet Volume 10.1 fL (9.4-12.4); Platelet Count 255 K/uL (130-400); RDW Coefficient of Variation 14.7 % (11.5-14.5); Red Blood Count 2.93 M/uL (4.20-5.40); White Blood Count 8.88 K/ul (4.8-10.8)
[2023-09-22 07:34] LABS: BUN Creatinine Ratio 14.8 (10-20); Calcium 8.1 mg/dl (8.6-10.3); Creatinine Clr Calc Pharmacy 37.5 ml/min; Est GFR (African American) 28.5 ml/min; Est GFR (Non-African American) 24.6 ml/min; Magnesium 1.9 mg/dl (1.7-2.4); Phosphorus 3.6 mg/dl (2.5-4.9); Potassium 3.7 mmol/L (3.5-5.1)
[2023-09-22] MEDS: GABAPENTIN 300 MG CAP PO SCH ×3 (08:07→20:24)
[2023-09-22] MEDS: ASPIRIN 81 MG ECTAB PO SCH (08:07)
[2023-09-22] MEDS: POLYETHYLENE (MIRALAX) 17 GM PACK PO SCH (08:07)
[2023-09-22] MEDS: DULoxetine HCL 60 MG CAP PO SCH (08:07)
[2023-09-22] MEDS: MAGNESIUM OXIDE 400 MG TAB PO SCH ×2 (08:08→20:23)
[2023-09-22] MEDS: APIXABAN 5 MG TABLET PO SCH ×2 (08:08→20:22)
[2023-09-22] MEDS: CLOPIDOGREL BISULFATE 75 MG TAB PO SCH (08:08)
[2023-09-22] MEDS: ATORVASTATIN 20 MG TAB PO SCH (08:08)
[2023-09-22] MEDS: PANTOprazole 40 MG TAB PO SCH (08:08)
[2023-09-22] MEDS: clonazePAM 0.5 MG TAB PO SCH ×2 (08:13→20:25)
[2023-09-22] MEDS: DOCUSATE SODIUM/SENNA 50/8.6MG TAB PO SCH ×2 (08:13→20:23)
[2023-09-22] MEDS: POTASSIUM CHLORIDE CRTAB 20 MEQ TABCR PO SCH ×2 (08:13→16:11)
[2023-09-22] MEDS: INSULIN ASPART PER UNIT CHARGE SC SCH ×4 (09:26→21:07)
[2023-09-22] MEDS ORDERED: bisacodyL 10 MG SUPP PR PRN (10:38)
[2023-09-22] MEDS ORDERED: LACTULOSE SYRUP 20 GM/30 ML UDC PO ONE (10:45)
[2023-09-22] MEDS ORDERED: cefTRIAXone SODIUM 2,000 MG in DEXTROSE 5 % MINI-B 50 ML IV SCH (12:00)
--- NOTE | 2023-09-22 12:24 | XRay Report ---
XR ribs RT min 2V w CXR1V HISTORY: 68 years-old Female pain, s/p fall acute chest pain status post fall COMPARISON: 09/19/2023 TECHNIQUE: AP view of the chest with 4 views of the right ribs FINDINGS: Cardiac silhouette is enlarged. Unchanged bilateral hilar prominence with chronic reticular interstit ial opacities. No pneumothorax, pleural effusion or lobar airspace consolidation. There are degenerat martinez changes of the shoulders and spine. Cholecystectomy. IVC filter. Stent graft within the right nec k with adjacent surgical clips. No acute displaced rib fracture identified. IMPRESSION: 1. Cardiomegaly without acute process. 2. Chronic interstitial lung disease. 3. No acute displaced rib fracture or pneumothorax. ACT 112: Negative or not required by law. The above report was generated using voice recognition software. It may contain grammatical, syntax o r spelling errors. Electronically signed by: Enrico Gilliland M.D. 09/22/2023 12:23 PM
--- NOTE | 2023-09-22 13:08 | Nephrology Consultation ---
Date of Consultation September 22, 2023 Assessment & Plan (1) Acute on chronic kidney failure: Patient with acute kidney injury on CKD likely due to ischemic ATN in setting of Klebsiella bacteremia. Creatinine of 2 today. Baseline creatinine around 1.7. Electrolytes are stable. She is slightly hypervolemic. Given chronic hypoxic respiratory failure, we cannot thrive introduce her diuretics. No indication for dialysis at the moment -Avoid nephrotoxins such as contrast. -Daily BMP (2) Sepsis: Patient with sepsis due to Klebsiella pneumonia UTI and bacteremia. He is getting ceftriaxone per primary team dosed for current eGFR. (3) Acute on chronic diastolic heart failure: Patient with chronic CHF. Her diuretics were held due to sepsis. Will Restart her Lasix this afternoon. Monitor intake output. History of Present Illness Reason for Consultation: Acute [id number] CKD Requesting Physician: Juan Gr MD Attending Physician: Juan Gr MD History of Present Illness 68-year-old female being seen for acute kidney injury on CKD. Past medical history of type 2 diabetes, chronic hypoxic respiratory failure on 3 L oxygen, hyperlipidemia, postsurgical hypothyroidism, chronic kidney disease stage IIIb baseline creatinine around 1.7, interstitial lung disease, obstructive sleep apnea on CPAP, chronic diastolic CHF, history of DVT and PE s/p IVC filter, history of heparin-induced thrombocytopenia, venous insufficiency, hypertension and recent right carotid artery repair complicated by bleeding who was admitted with UTI. She is growing Klebsiella both in the urine and blood. Creatinine has been fluctuating up to 2.35 yesterday but slightly better to eat today. Patient normally takes Lasix 60 mg twice daily at home. Her diuretics are on hold now. She reports breathing to be at baseline. Legs are slightly swollen. She was net +1.4 L yesterday. She has moderate anemia with hemoglobin of 8.6. Allergies Allergy/AdvReac Type Severity Reaction Status Date / Time morphine Allergy Severe Swelling, Verified 09/06/23 06:26 "Violent reaction- almost " dapagliflozin [From Farxiga] Allergy Intermediate Yeast Verified 09/06/23 06:26 infections tetanus toxoid, adsorbed Allergy Intermediate Passed Verified 09/06/23 06:26 out, "got sick" as child bupropion [From Wellbutrin] AdvReac Intermediate Recurrent Verified 09/06/23 06:26 falls as per patient codeine AdvReac Intermediate Hallucinati Verified 09/06/23 06:26 ons empagliflozin AdvReac Intermediate Yeast Verified 09/06/23 06:26 [From Jardiance] infections heparin AdvReac Intermediate HIT, Verified 09/06/23 06:26 "Fluid in lungs" hydrocodone [From Vicodin] AdvReac Intermediate Drowsy Verified 09/06/23 06:26 Home Medications Medication Instructions Recorded Confirmed Type apixaban 5 mg tablet (Eliquis) 5 mg PO BID 09/20/23 09/20/23 History aspirin 81 mg tablet,delayed 81 mg PO DAILY 09/20/23 09/20/23 History release atorvastatin 20 mg tablet 20 mg PO DAILY 09/20/23 09/20/23 History baclofen 10 mg tablet 10 mg PO BID PRN Muscle Spasm 09/20/23 09/20/23 History clonazepam 0.5 mg tablet 0.5 mg PO BID 09/20/23 09/20/23 History clopidogrel 75 mg tablet 75 mg PO DAILY 09/20/23 09/20/23 History duloxetine 60 mg capsule,delayed 60 mg PO DAILY 09/20/23 09/20/23 History release furosemide 40 mg tablet 60 mg PO BID 09/20/23 09/20/23 History gabapentin 300 mg capsule 600 mg PO TID 09/20/23 09/20/23 History insulin aspart U-100 100 unit/mL 8 unit subcut UD 09/20/23 09/20/23 History (3 mL) subcutaneous pen (Novolog FlexPen U-100 Insulin aspart) insulin degludec 100 unit/mL (3 50 unit subcut HS 09/20/23 09/20/23 History mL) subcutaneous pen (Tresiba FlexTouch U-100 insulin) levothyroxine 200 mcg tablet 200 mcg PO DAILY 09/20/23 09/20/23 History levothyroxine 50 mcg tablet 50 mcg PO DAILY 09/20/23 09/20/23 History magnesium oxide 400 mg (241.3 mg 400 mg PO BID 09/20/23 09/20/23 History magnesium) tablet omeprazole 20 mg capsule,delayed 20 mg PO DAILY 09/20/23 09/20/23 History release oxycodone 5 mg tablet 5 mg PO Q6H PRN Pain 09/20/23 09/20/23 History potassium chloride 20 mEq 20 meq PO BID 09/20/23 09/20/23 History tablet,extended release(part/cryst) ropinirole 2 mg tablet 2 mg PO HS 09/20/23 09/20/23 History sennosides 8.6 mg-docusate sodium 1 tab PO BID 09/20/23 09/20/23 History 50 mg tablet (Senna-Time S) tirzepatide 5 mg/0.5 mL 5 mg subcut WK 09/20/23 09/20/23 History subcutaneous pen injector (Mounjaro) tramadol 50 mg tablet 50 mg PO TID PRN Pain 09/20/23 09/20/23 History trazodone 100 mg tablet 100 mg PO HS 09/20/23 09/20/23 History Patient History Medical History Hypomagnesemia Mitral valve stenosis Echo 06/2023: Borderline mild mitral stenosis secondary to severe mitral annular calcification Chronic hypoxemic respiratory failure Cataract, bilateral Lumbago with sciatica Lower extremity pain, bilateral Neuropathy feet On home oxygen therapy 3L continuous CHF (congestive heart failure) Follows with Dr. Woodall Subclavian artery stenosis Cerebrovascular duplex study 06/2023: Retrograde flow in the right vertebral artery. 50-69% proximal right subclavian artery stenosis. Antegrade flow in the left vertebral artery. Normal flow in the left subclavian artery. Carotid stenosis, right Cerebrovascular duplex 07/11/23: 80-99% R ICA stenosis. No hemodynamically significant stenosis in the LICA. Diabetes mellitus, type II CKD (chronic kidney disease), stage III Follows with [facility] ELISSA on CPAP CPAP + 3L O2 (O2 is continuous) HTN (hypertension) HLD (hyperlipidemia) Morbid obesity HIT (heparin-induced thrombocytopenia) 2008, [facility] then life flight to [place] > "resolved" Depression with anxiety Hypothyroidism History of pulmonary embolism 2008 s/p zoraida filter GERD (gastroesophageal reflux disease) RLS (restless legs syndrome) History of DVT (deep vein thrombosis) 2008 (during ICU [place] admission/PNA) Presence of IVC filter 2008 Fibromyalgia Surgical History Family history of reaction to anesthesia Brother/niece- PONV Brother- "wakes up violent" History of colostomy reversal History of tooth extraction History of arthroscopy left ankle History of incisional hernia repair Nausea and vomiting after administration of anesthetic agent History of colonoscopy History of cholecystectomy History of total right knee replacement History of tracheostomy 06/2009 (per [facility] records), secondary to acute respiratory failure in setting of PNA, reversed a few months later History of thyroidectomy, total 2010 History of colon resection secondary to R colon perforation, resected treated with colostomy and eventual reversal in 2008, Dr. Lerma Family History Father , age 74 Lung cancer Mother , age 45 Cirrhosis Social History Smoking Status: Never smoker Tobacco Type: Cigarettes Cigarettes Per Day: 1996; Second Hand Exposure: No; Do You Dip or Chew Tobacco: No; Tobacco Cessation Education Requested by Patient: No Hx Alcohol Use: No Hx Substance Use: No Preferred Language: Wolof Communication Ability: Effective Helmet Coverer Required: No Beliefs That Will Affect Care: None marital status: Single Current Living Situation: Alone Current Living Situation Comment: apartment How many Children do You have: 0 Feels Safe at Home: Yes Safety Concerns: Feels Safe At This Time Assistive Devices: Glasses, Oxygen - Continuous, Walker and Wheelchair Assistive Devices Comment: Rollator Review of Systems 2 Review of Systems: All other systems were reviewed and negative except as noted in HPI Physical Exam 2 Physical Exam: General exam: Appears comfortable, no acute distress on oxygen NC HEENT: Pupils are equal and reactive to light Neck: No JVD, neck is supple trachea is midline Respiratory system: Crackles bilaterally. Gastrointestinal: Abdomen is soft, non distended, non tender, bowel sounds are present CVS: Regular rate and rhythm. No murmurs, rubs or gallops Musculoskeletal: No joint or muscle tenderness Extremities: Non tender, no edema, peripheral pulses are present Neuro: Oriented, no tremors, no focal neurological deficits Skin: No rashes Results & Data Vital Signs (Past 12 Hours) Vital Signs Temp Pulse Pulse Resp BP BP Pulse Ox 09/22/23 12:13 36.9 C 82 19 105/77 92 09/22/23 09:50 09/22/23 09:45 93 H 09/22/23 07:12 37.2 C 91 H 20 105/63 94 09/22/23 03:30 37.0 C 95 H 14 101/56 L 94 O2 Del Method O2 Flow Rate 09/22/23 12:13 Nasal Cannula 3 09/22/23 09:50 Nasal Cannula, CPAP 5 09/22/23 09:45 09/22/23 07:12 Nasal Cannula 5 09/22/23 03:30 Nasal Cannula 2 Laboratory Results 09/22/23 06:36 09/22/23 06:36 WBC 8.88 RBC 2.93 L MCV 95.6 MCH 29.4 MCHC 30.7 L RDW Std Deviation 52.0 H RDW Coeff of Adolfo 14.7 H Plt Count 255 MPV 10.1 Phosphorus 3.6
[2023-09-22] MEDS: oxyCODONE HCL IR 5 MG TAB (IMMEDIATE RELEASE) PO PRN ×2 (13:34→23:50)
--- NOTE | 2023-09-22 13:56 | Infectious Disease Consult ---
Date of Service September 22, 2023 Telehealth Information I performed this visit using a real-time telehealth connection between my location and the patients location ([facility]). After connecting through interactive tele-video, patient was identified by name and date of and/or wristband check.Patient (or authorized healthcare electronics parts sales representative) was informed that this was a telemedicine visit and it was being conducted confidentially over secure lines. My office door was closed and no one else was present in the room with me.Patient (or authorized healthcare electronics parts sales representative) provided consent to proceed with the visit, expressed an understanding of privacy and security of the telemedicine visit, and gave permission to have a hospital electronics parts sales representative in the room in order to assist with the visit and to conduct portions of the visit, as needed. I informed the patient (or authorized healthcare electronics parts sales representative) that I reviewed their record and presented the opportunity for them to ask any questions regarding the visit today. The patient agreed to participate. Assessment & Plan (1) Acute pyelonephritis: (2) UTI due to Klebsiella species: (3) Bacteremia due to Gram-negative bacteria: Plan Recommend treating with oral ciprofloxacin 500 mg PO BID for a total of [address] indicated pyelonephritis .Side effects of ciprofloxacin discussed and patient made aware .Thank you for allowing us to participate in the care of this patient ID will sign off History of Present Illness History of Present Illness 68 y/o F with PMHx significant for type 2 diabetes, chronic hypoxic respiratory failure on 3 L oxygen, hyperlipidemia, postsurgical hypothyroidism, hyperparathyroidism secondary to renal disease, chronic kidney disease stage IIIb, interstitial lung disease, obstructive sleep apnea on CPAP, chronic diastolic CHF, history of DVT and PE s/p IVC filter, history of heparin-induced thrombocytopenia, venous insufficiency, hypertension, right carotid artery stenosis, morbid obesity, GERD, fibromyalgia, restless leg syndrome, osteoarthritis, lumbar radiculopathy, depression, statin intolerance, abnormality of gait ambulates with walker, anxiety, presents with nausea,fever,chills and muscle aches.She denies supra-pubic pain and dysuria and found to have UTI secondary to klebsiella oxytocia and klebsiella bacteremia she is on ceftriaxone Allergies Allergy/AdvReac Type Severity Reaction Status Date / Time morphine Allergy Severe Swelling, Verified 09/06/23 06:26 "Violent reaction- almost " dapagliflozin [From [facility]] Allergy Intermediate Yeast Verified 09/06/23 06:26 infections tetanus toxoid, adsorbed Allergy Intermediate Passed Verified 09/06/23 06:26 out, "got sick" as child bupropion [From Wellbutrin] AdvReac Intermediate Recurrent Verified 09/06/23 06:26 falls as per patient codeine AdvReac Intermediate Hallucinati Verified 09/06/23 06:26 ons empagliflozin AdvReac Intermediate Yeast Verified 09/06/23 06:26 [From Jardiance] infections heparin AdvReac Intermediate HIT, Verified 09/06/23 06:26 "Fluid in lungs" hydrocodone [From Vicodin] AdvReac Intermediate Drowsy Verified 09/06/23 06:26 Home Medications Medication Instructions Recorded Confirmed Type apixaban 5 mg tablet (Eliquis) 5 mg PO BID 09/20/23 09/20/23 History aspirin 81 mg tablet,delayed 81 mg PO DAILY 09/20/23 09/20/23 History release atorvastatin 20 mg tablet 20 mg PO DAILY 09/20/23 09/20/23 History baclofen 10 mg tablet 10 mg PO BID PRN Muscle Spasm 09/20/23 09/20/23 History clonazepam 0.5 mg tablet 0.5 mg PO BID 09/20/23 09/20/23 History clopidogrel 75 mg tablet 75 mg PO DAILY 09/20/23 09/20/23 History duloxetine 60 mg capsule,delayed 60 mg PO DAILY 09/20/23 09/20/23 History release furosemide 40 mg tablet 60 mg PO BID 09/20/23 09/20/23 History gabapentin 300 mg capsule 600 mg PO TID 09/20/23 09/20/23 History insulin aspart U-100 100 unit/mL 8 unit subcut UD 09/20/23 09/20/23 History (3 mL) subcutaneous pen (Novolog FlexPen U-100 Insulin aspart) insulin degludec 100 unit/mL (3 50 unit subcut HS 09/20/23 09/20/23 History mL) subcutaneous pen (Tresiba FlexTouch U-100 insulin) levothyroxine 200 mcg tablet 200 mcg PO DAILY 09/20/23 09/20/23 History levothyroxine 50 mcg tablet 50 mcg PO DAILY 09/20/23 09/20/23 History magnesium oxide 400 mg (241.3 mg 400 mg PO BID 09/20/23 09/20/23 History magnesium) tablet omeprazole 20 mg capsule,delayed 20 mg PO DAILY 09/20/23 09/20/23 History release oxycodone 5 mg tablet 5 mg PO Q6H PRN Pain 09/20/23 09/20/23 History potassium chloride 20 mEq 20 meq PO BID 09/20/23 09/20/23 History tablet,extended release(part/cryst) ropinirole 2 mg tablet 2 mg PO HS 09/20/23 09/20/23 History sennosides 8.6 mg-docusate sodium 1 tab PO BID 09/20/23 09/20/23 History 50 mg tablet (Senna-Time S) tirzepatide 5 mg/0.5 mL 5 mg subcut WK 09/20/23 09/20/23 History subcutaneous pen injector (Mounjaro) tramadol 50 mg tablet 50 mg PO TID PRN Pain 09/20/23 09/20/23 History trazodone 100 mg tablet 100 mg PO HS 09/20/23 09/20/23 History Patient History Medical History (Updated 09/22/23 @ 14:38 by Clover Wang MD) Acute pyelonephritis Hypomagnesemia Mitral valve stenosis Echo 06/2023: Borderline mild mitral stenosis secondary to severe mitral annular calcification Chronic hypoxemic respiratory failure Cataract, bilateral Lumbago with sciatica Lower extremity pain, bilateral Neuropathy feet On home oxygen therapy 3L continuous CHF (congestive heart failure) Follows with Dr. Woodall Subclavian artery stenosis Cerebrovascular duplex study 06/2023: Retrograde flow in the right vertebral artery. 50-69% proximal right subclavian artery stenosis. Antegrade flow in the left vertebral artery. Normal flow in the left subclavian artery. Carotid stenosis, right Cerebrovascular duplex 07/11/23: 80-99% R ICA stenosis. No hemodynamically significant stenosis in the LICA. Diabetes mellitus, type II CKD (chronic kidney disease), stage III Follows with [facility] ELISSA on CPAP CPAP + 3L O2 (O2 is continuous) HTN (hypertension) HLD (hyperlipidemia) Morbid obesity HIT (heparin-induced thrombocytopenia) 2008, [facility] then life flight to [place] > "resolved" Depression with anxiety Hypothyroidism History of pulmonary embolism 2008 s/p zoraida filter GERD (gastroesophageal reflux disease) RLS (restless legs syndrome) History of DVT (deep vein thrombosis) 2008 (during ICU [place] admission/PNA) Presence of IVC filter 2009 Fibromyalgia Surgical History Family history of reaction to anesthesia Brother/niece- PONV Brother- "wakes up violent" History of colostomy reversal History of tooth extraction History of arthroscopy left ankle History of incisional hernia repair Nausea and vomiting after administration of anesthetic agent History of colonoscopy History of cholecystectomy History of total right knee replacement History of tracheostomy 06/2009 (per [facility] records), secondary to acute respiratory failure in setting of PNA, reversed a few months later History of thyroidectomy, total 2010 History of colon resection secondary to R colon perforation, resected treated with colostomy and eventual reversal in 2008, Dr. Lerma Family History Father , age 74 Lung cancer Mother , age 45 Cirrhosis Social History Smoking Status: Never smoker Tobacco Type: Cigarettes Cigarettes Per Day: 1996; Second Hand Exposure: No; Do You Dip or Chew Tobacco: No; Tobacco Cessation Education Requested by Patient: No Hx Alcohol Use: No Hx Substance Use: No Preferred Language: Ethiopian Communication Ability: Effective Bread Wrapper Operator Required: No Beliefs That Will Affect Care: None marital status: Single Current Living Situation: Alone Current Living Situation Comment: apartment How many Children do You have: 0 Feels Safe at Home: Yes Safety Concerns: Feels Safe At This Time Assistive Devices: Glasses, Oxygen - Continuous, Walker and Wheelchair Assistive Devices Comment: Rollator Review of Systems Patient denies dysuria or abdominal pain Physical Exam Patient lying in bed in no acute respiratory distress drowsy but answers questions appropriately Results & Data Vital Signs (Past 12 Hours) Vital Signs Temp Pulse Pulse Resp BP BP Pulse Ox 09/22/23 12:13 36.9 C 82 19 105/77 92 09/22/23 09:50 09/22/23 09:45 93 H 09/22/23 07:12 37.2 C 91 H 20 105/63 94 09/22/23 03:30 37.0 C 95 H 14 101/56 L 94 O2 Del Method O2 Flow Rate 09/22/23 12:13 Nasal Cannula 3 09/22/23 09:50 Nasal Cannula, CPAP 5 09/22/23 09:45 09/22/23 07:12 Nasal Cannula 5 09/22/23 03:30 Nasal Cannula 2 Laboratory Results Kleb oxyto RX M.I.C. --- --------- Amox/Clav S <=8/4 Amp/Sul S <=8/4 Cefazolin R 16 Cefepime S <=2 Ceftriaxone S <=1 Ciprofloxacin S <=0.25 Ertapenem S <=0.5 Gentamicin S <=4 Levofloxacin S <=0.5 Meropenem S <=1 Nitrofurantoin S <=32 Tobramycin S <=4 Trimeth/Sulfa S <=2/38 Pip/Tazo S <=16 S = SENSITIVE I = INTERMEDIATE R = RESISTANT Diagnostic Findings IMPRESSION: 1. Right-sided hydronephrosis, unchanged in the interval. Progressed perinephric and periureteral stranding which may indicate infectious process such as pyelonephritis, clinical correlation recommended. 2. Possible mild constipation. No acute appendicitis or bowel obstruction. 3. Mild splenomegaly. Status post cholecystectomy. ECG Additional Comments: No QT prolongation
--- NOTE | 2023-09-22 15:45 | Hospitalist Progress Note ---
Date of Service September 22, 2023 Assessment & Plan (1) Illness: Plan: per previous hospitalist notes with addendum: 68-year-old female with past medical history significant for type 2 diabetes, chronic hypoxic respiratory failure on 3 L oxygen, hyperlipidemia, postsurgical hypothyroidism, hyperparathyroidism secondary to renal disease, chronic kidney disease stage IIIb, interstitial lung disease, obstructive sleep apnea on CPAP, chronic diastolic CHF, history of DVT and PE s/p IVC filter, history of heparin- induced thrombocytopenia, venous insufficiency, hypertension, right carotid artery stenosis, morbid obesity, GERD, fibromyalgia, restless leg syndrome, osteoarthritis, lumbar radiculopathy, depression, statin intolerance, abnormality of gait ambulates with walker, anxiety, presents for flu like symptoms and found to have UTI KLEBSIELLA UTI, PYELONEPHRITIS BACTEREMIA Flulike symptoms Empirically started Zosyn ucultx and blood cultx - positive for Klebsiella repeat blood cultx negative so far ID consulted recommend Cipro PO x 14 days ACUTE KIDNEY INJURY likely ATN from Bacteremia Nephro consulted crea improved to 2.0 resume Lasix 30mg IV BID Obstructive sleep apnea CPAP nightly Chronic respiratory failure History of interstitial lung disease Continue oxygen supplementation Chronic diastolic CHF - Lasix resumed Diabetes Continue home long-acting insulin Sliding scale Will monitor ELSIE on CKD stage III management per above Recent right carotid carotid artery procedure Procedure site looks good - she is supposed to follow up w/ Dr. Tang - consulted however he is actually not available at this time, will need to follow up as outpt History of DVT and PE S/p IVC filter On Eliquis Hypothyroidism On Synthyroid Hypertension On diuretics Will monitor History of depression anxiety On trazodone and Klonopin Restless leg syndrome On ropinirole DVT prophylaxis on Eliquis Disposition Med/tele Full code Admission and Anticipated Discharge Date Admission Date: September 20, 2023 Subjective ff up for bacteremia, pyelonephritis, etc seen resting in commode not in distress was weak and fell in the bathroom this morning landing on her buttocks no LOC states she still feels weak has generalized pain, chronic, not worsening has some R rib pain no abdominal pain, nausea, fever/chills, nausea no other symptoms Review of Systems Review of Systems: all noted and negative except for above Physical Exam Physical Exam: General- oriented x 3, not in distress, speaks in sentences with no effort or accessory muscle use Eyes- anicteric Neck- no JVD Lungs- clear breath sounds bilaterally, no rales/wheezes Heart- normal rate, regular rhythm; no murmurs Abdomen- normal bowel sounds, nondistended, soft, mild R CVA tenderness Extremities- no pretibial edema, no calf tenderness Neuro- alert, oriented x 3; no gross focal neurologic deficits Skin- warm & dry Results & Data Results & Data Vital Signs (Past 12 Hours) Vital Signs Temp Pulse Pulse Resp BP BP Pulse Ox 09/22/23 12:13 36.9 C 82 19 105/77 92 09/22/23 09:50 09/22/23 09:45 93 H 09/22/23 07:12 37.2 C 91 H 20 105/63 94 O2 Del Method O2 Flow Rate 09/22/23 12:13 Nasal Cannula 3 09/22/23 09:50 Nasal Cannula, CPAP 5 09/22/23 09:45 09/22/23 07:12 Nasal Cannula 5 all noted and reviewed including below
[2023-09-22] MEDS: FUROSEMIDE 40 MG/4 ML VIAL IV SCH (16:11)
[2023-09-22] MEDS: traMADol HCL 50 MG TABLET PO PRN (17:12)
[2023-09-22] MEDS: ACETAMINOPHEN 325 MG TAB PO PRN ×2 (17:12→23:50)
[2023-09-22] MEDS: CIPROFLOXACIN 250 MG TAB PO SCH (20:22)
[2023-09-22] MEDS: rOPINIRole HCL 2 MG TABLET PO SCH (20:24)
[2023-09-22] MEDS: traZODone HCL 100 MG TAB PO SCH (20:25)
[2023-09-22] MEDS ORDERED: FUROSEMIDE INJ 20 MG/2 ML VIAL IV SCH (21:00)
[2023-09-22] MEDS: LANTUS PER UNIT CHARGE SC SCH (21:07)
[2023-09-23] MEDS: traZODone HCL 100 MG TAB PO SCH ×2 (00:25→19:40)
[2023-09-23] MEDS: clonazePAM 0.5 MG TAB PO SCH ×3 (00:25→19:42)
[2023-09-23] MEDS: LEVOTHYROXINE SODIUM 200 MCG TABLET PO SCH (04:57)
[2023-09-23] MEDS: LEVOTHYROXINE SODIUM 50 MCG TABLET PO SCH (04:57)
[2023-09-23] MEDS: traMADol HCL 50 MG TABLET PO PRN ×2 (04:57→21:14)
[2023-09-23] MEDS: POTASSIUM CHLORIDE CRTAB 20 MEQ TABCR PO SCH ×2 (08:45→16:30)
[2023-09-23] MEDS: oxyCODONE HCL IR 5 MG TAB (IMMEDIATE RELEASE) PO PRN (08:45)
[2023-09-23] MEDS: GABAPENTIN 300 MG CAP PO SCH ×3 (08:45→19:39)
[2023-09-23] MEDS: APIXABAN 5 MG TABLET PO SCH ×2 (08:46→19:40)
[2023-09-23] MEDS: DULoxetine HCL 60 MG CAP PO SCH (08:46)
[2023-09-23] MEDS: DOCUSATE SODIUM/SENNA 50/8.6MG TAB PO SCH ×2 (08:46→19:41)
[2023-09-23] MEDS: CIPROFLOXACIN 250 MG TAB PO SCH ×2 (08:46→19:39)
[2023-09-23] MEDS: ATORVASTATIN 20 MG TAB PO SCH (08:46)
[2023-09-23] MEDS: FUROSEMIDE 40 MG/4 ML VIAL IV SCH ×2 (08:46→16:29)
[2023-09-23] MEDS: PANTOprazole 40 MG TAB PO SCH (08:46)
[2023-09-23] MEDS: ASPIRIN 81 MG ECTAB PO SCH (08:46)
[2023-09-23] MEDS: MAGNESIUM OXIDE 400 MG TAB PO SCH ×2 (08:46→19:41)
[2023-09-23] MEDS: CLOPIDOGREL BISULFATE 75 MG TAB PO SCH (08:46)
[2023-09-23] MEDS: POLYETHYLENE (MIRALAX) 17 GM PACK PO SCH (08:47)
[2023-09-23] MEDS: INSULIN ASPART PER UNIT CHARGE SC SCH ×4 (09:43→21:13)
--- NOTE | 2023-09-23 12:23 | Nephrology Progress Note ---
Date of Service September 23, 2023 Assessment & Plan (1) Acute on chronic kidney failure: Plan: Patient with acute kidney injury on CKD likely due to ischemic ATN in setting of Klebsiella bacteremia. Creatinine of 2 recently. Baseline creatinine around 1.7. Electrolytes are stable. She is slightly hypervolemic. Given chronic hypoxic respiratory failure, we cannot thrive introduce her diuretics. No indication for dialysis at the moment -Avoid nephrotoxins such as contrast. -Daily BMP (2) Sepsis: Plan: Patient with sepsis due to Klebsiella pneumonia UTI and bacteremia. She is getting ceftriaxone per primary team dosed for current eGFR. (3) Acute on chronic diastolic heart failure: Plan: Patient with chronic CHF. Her diuretics were held due to sepsis. Monitor intake output. Admission and Anticipated Discharge Date Admission Date: September 20, 2023 Subjective Seen for acute kidney injury on CKD. He feels better today. No shortness of breath. No leg swelling. She is making urine about 550 mL yesterday. Review of Systems 2 Review of Systems: All other systems were reviewed and negative except as noted in HPI Physical Exam 2 Physical Exam: General exam: Appears comfortable, no acute distress on oxygen NC HEENT: Pupils are equal and reactive to light Neck: No JVD, neck is supple trachea is midline Respiratory system: Crackles bilaterally. Gastrointestinal: Abdomen is soft, non distended, non tender, bowel sounds are present CVS: Regular rate and rhythm. No murmurs, rubs or gallops Musculoskeletal: No joint or muscle tenderness Extremities: Non tender, no edema, peripheral pulses are present Neuro: Oriented, no tremors, no focal neurological deficits Skin: No rashes Results & Data Vital Signs (Past 12 Hours) Vital Signs Temp Pulse Pulse Resp BP BP Pulse Ox 09/23/23 11:39 37.4 C 91 H 16 119/55 L 90 09/23/23 08:02 88 09/23/23 07:58 37.1 C 91 H 16 166/82 H 91 09/23/23 04:45 37.5 C 89 18 119/52 L 95 O2 Del Method O2 Flow Rate 09/23/23 11:39 Nasal Cannula 3 09/23/23 08:02 09/23/23 07:58 Nasal Cannula 3 09/23/23 04:45 Nasal Cannula 3 Laboratory Results 09/22/23 06:36
--- NOTE | 2023-09-23 16:46 | Hospitalist Progress Note ---
Date of Service September 23, 2023 Assessment & Plan (1) Illness: Plan: per previous hospitalist notes with addendum: 68-year-old female with past medical history significant for type 2 diabetes, chronic hypoxic respiratory failure on 3 L oxygen, hyperlipidemia, postsurgical hypothyroidism, hyperparathyroidism secondary to renal disease, chronic kidney disease stage IIIb, interstitial lung disease, obstructive sleep apnea on CPAP, chronic diastolic CHF, history of DVT and PE s/p IVC filter, history of heparin- induced thrombocytopenia, venous insufficiency, hypertension, right carotid artery stenosis, morbid obesity, GERD, fibromyalgia, restless leg syndrome, osteoarthritis, lumbar radiculopathy, depression, statin intolerance, abnormality of gait ambulates with walker, anxiety, presents for flu like symptoms and found to have UTI KLEBSIELLA UTI, PYELONEPHRITIS BACTEREMIA Flulike symptoms Empirically started Zosyn ucultx and blood cultx - positive for Klebsiella repeat blood cultx negative so far ID consulted recommend Cipro PO x 14 days Stable overall Continue p.o. Cipro ACUTE KIDNEY INJURY likely ATN from Bacteremia Nephro consulted Lasix 30mg IV BID Check BMP tomorrow Obstructive sleep apnea CPAP nightly Chronic respiratory failure History of interstitial lung disease Continue oxygen supplementation Chronic diastolic CHF - Lasix resumed Diabetes Continue home long-acting insulin Sliding scale Will monitor ELSIE on CKD stage III management per above Recent right carotid carotid artery procedure Procedure site looks good - she is supposed to follow up w/ Dr. Tang - consulted however he is actually not available at this time, will need to follow up as outpt History of DVT and PE S/p IVC filter On Eliquis Hypothyroidism On Synthyroid Hypertension On diuretics Will monitor History of depression anxiety On trazodone and Klonopin Restless leg syndrome On ropinirole DVT prophylaxis on Eliquis Disposition Med/tele Full code Admission and Anticipated Discharge Date Admission Date: September 20, 2023 Subjective Follow-up for UTI, bacteremia, etc. Seen resting in bedside chair, comfortable, not in distress States she still feels weak overall No abdominal pain, problems urination, fevers or chills No shortness of breath, No other new symptoms Review of Systems Review of Systems: all noted and negative except for above Physical Exam Physical Exam: General- oriented x 3, not in distress, speaks in sentences with no effort or accessory muscle use Eyes- anicteric Neck- no JVD Lungs- clear breath sounds bilaterally, no rales/wheezes Heart- normal rate, regular rhythm; no murmurs Abdomen- normal bowel sounds, nondistended, soft, mild R CVA tenderness Extremities- no pretibial edema, no calf tenderness Neuro- alert, oriented x 3; no gross focal neurologic deficits Skin- warm & dry Results & Data Results & Data Vital Signs (Past 12 Hours) Vital Signs Temp Pulse Pulse Resp BP Pulse Ox O2 Del Method 09/23/23 15:30 36.9 C 77 16 143/52 H 97 Nasal Cannula 09/23/23 14:50 87 09/23/23 13:28 Nasal Cannula 09/23/23 11:39 37.4 C 91 H 16 119/55 L 90 Nasal Cannula 09/23/23 08:02 88 09/23/23 07:58 37.1 C 91 H 16 166/82 H 91 Nasal Cannula O2 Flow Rate 09/23/23 15:30 3 09/23/23 14:50 09/23/23 13:28 3 09/23/23 11:39 3 09/23/23 08:02 09/23/23 07:58 3 all noted and reviewed including below
[2023-09-23] MEDS: rOPINIRole HCL 2 MG TABLET PO SCH (19:40)
[2023-09-23] MEDS: LANTUS PER UNIT CHARGE SC SCH (21:13)
[2023-09-24] MEDS: oxyCODONE HCL IR 5 MG TAB (IMMEDIATE RELEASE) PO PRN ×3 (05:57→18:44)
[2023-09-24] MEDS: LEVOTHYROXINE SODIUM 50 MCG TABLET PO SCH (05:57)
[2023-09-24] MEDS: LEVOTHYROXINE SODIUM 200 MCG TABLET PO SCH (05:57)
[2023-09-24 07:12] LABS: BUN Creatinine Ratio 12.6 (10-20); Calcium 8.5 mg/dl (8.6-10.3); Creatinine Clr Calc Pharmacy 42.7 ml/min; Est GFR (African American) 34.1 ml/min; Est GFR (Non-African American) 29.4 ml/min; Potassium 3.9 mmol/L (3.5-5.1)
[2023-09-24] MEDS: GABAPENTIN 300 MG CAP PO SCH ×3 (08:42→21:11)
[2023-09-24] MEDS: CIPROFLOXACIN 250 MG TAB PO SCH ×2 (08:42→21:12)
[2023-09-24] MEDS: PANTOprazole 40 MG TAB PO SCH (08:46)
[2023-09-24] MEDS: DULoxetine HCL 60 MG CAP PO SCH (08:46)
[2023-09-24] MEDS: ASPIRIN 81 MG ECTAB PO SCH (08:46)
[2023-09-24] MEDS: CLOPIDOGREL BISULFATE 75 MG TAB PO SCH (08:46)
[2023-09-24] MEDS: ATORVASTATIN 20 MG TAB PO SCH (08:46)
[2023-09-24] MEDS: APIXABAN 5 MG TABLET PO SCH ×2 (08:47→21:12)
[2023-09-24] MEDS: DOCUSATE SODIUM/SENNA 50/8.6MG TAB PO SCH ×2 (08:47→21:12)
[2023-09-24] MEDS: MAGNESIUM OXIDE 400 MG TAB PO SCH ×2 (08:47→21:11)
[2023-09-24] MEDS: INSULIN ASPART PER UNIT CHARGE SC SCH ×4 (08:53→21:09)
[2023-09-24] MEDS: POTASSIUM CHLORIDE CRTAB 20 MEQ TABCR PO SCH ×2 (08:53→18:29)
[2023-09-24] MEDS: clonazePAM 0.5 MG TAB PO SCH ×2 (08:53→21:17)
[2023-09-24] MEDS: FUROSEMIDE 40 MG/4 ML VIAL IV SCH ×2 (08:54→18:24)
[2023-09-24] MEDS: POLYETHYLENE (MIRALAX) 17 GM PACK PO SCH (08:56)
--- NOTE | 2023-09-24 10:42 | Nephrology Progress Note ---
Date of Service September 24, 2023 Assessment & Plan (1) Acute on chronic kidney failure: Plan: Patient with acute kidney injury on CKD likely due to ischemic ATN in setting of Klebsiella bacteremia. Creatinine of 1.75 today. Baseline creatinine around 1.7. Electrolytes are stable. She is slightly hypervolemic. She was net -1 L yesterday. -Continue Lasix 40 mg twice daily IV -Avoid nephrotoxins such as contrast. -Daily BMP (2) Sepsis: Plan: Patient with sepsis due to Klebsiella pneumonia UTI and bacteremia. She is getting ceftriaxone per primary team dosed for current eGFR. (3) Acute on chronic diastolic heart failure: Plan: Patient with chronic CHF. Continue Lasix as above. She is diuresing well. Monitor intake output. Admission and Anticipated Discharge Date Admission Date: September 20, 2023 Subjective Seen for acute kidney injury on CKD. She feels better today although complains of exertional fatigue. She was net -1 L yesterday. Review of Systems 2 Review of Systems: All other systems were reviewed and negative except as noted in HPI Physical Exam 2 Physical Exam: General exam: Appears comfortable, no acute distress on oxygen NC HEENT: Pupils are equal and reactive to light Neck: No JVD, neck is supple trachea is midline Respiratory system: Crackles bilaterally. Gastrointestinal: Abdomen is soft, non distended, non tender, bowel sounds are present CVS: Regular rate and rhythm. No murmurs, rubs or gallops Musculoskeletal: No joint or muscle tenderness Extremities: Non tender, no edema, peripheral pulses are present Neuro: Oriented, no tremors, no focal neurological deficits Skin: No rashes Results & Data Vital Signs (Past 12 Hours) Vital Signs Temp Pulse Pulse Resp BP Pulse Ox O2 Del Method 09/24/23 08:04 36.7 C 88 16 115/46 L 95 Nasal Cannula 09/24/23 07:32 81 09/24/23 03:12 36.7 C 89 20 109/68 97 Nasal Cannula 09/24/23 00:00 36.9 C 84 18 102/58 L 95 Nasal Cannula O2 Flow Rate 09/24/23 08:04 3 09/24/23 07:32 09/24/23 03:12 3 09/24/23 00:00 3 Laboratory Results 09/24/23 06:35
--- NOTE | 2023-09-24 19:38 | Hospitalist Progress Note ---
Date of Service September 24, 2023 Assessment & Plan (1) Illness: Plan: per previous hospitalist notes with addendum: 68-year-old female with past medical history significant for type 2 diabetes, chronic hypoxic respiratory failure on 3 L oxygen, hyperlipidemia, postsurgical hypothyroidism, hyperparathyroidism secondary to renal disease, chronic kidney disease stage IIIb, interstitial lung disease, obstructive sleep apnea on CPAP, chronic diastolic CHF, history of DVT and PE s/p IVC filter, history of heparin- induced thrombocytopenia, venous insufficiency, hypertension, right carotid artery stenosis, morbid obesity, GERD, fibromyalgia, restless leg syndrome, osteoarthritis, lumbar radiculopathy, depression, statin intolerance, abnormality of gait ambulates with walker, anxiety, presents for flu like symptoms and found to have UTI KLEBSIELLA UTI, PYELONEPHRITIS BACTEREMIA Flulike symptoms Empirically started Zosyn ucultx and blood cultx - positive for Klebsiella repeat blood cultx negative so far ID consulted recommend Cipro PO x 14 days Remains stable Continue p.o. Cipro ACUTE KIDNEY INJURY likely ATN from Bacteremia Nephro consulted Creatinine improving 1.7 Lasix 30mg IV BID Check BMP tomorrow Obstructive sleep apnea CPAP nightly Chronic respiratory failure History of interstitial lung disease Continue oxygen supplementation Chronic diastolic CHF - Lasix resumed Diabetes Continue home long-acting insulin Sliding scale Will monitor ELSIE on CKD stage III management per above Recent right carotid carotid artery procedure Procedure site looks good - she is supposed to follow up w/ Dr. Tang - consulted however he is actually not available at this time, will need to follow up as outpt History of DVT and PE S/p IVC filter On Eliquis Hypothyroidism On Synthyroid Hypertension On diuretics Will monitor History of depression anxiety On trazodone and Klonopin Restless leg syndrome On ropinirole DVT prophylaxis on Eliquis Disposition Med/tele Full code Admission and Anticipated Discharge Date Admission Date: September 20, 2023 Subjective Follow-up for UTI, bacteremia, etc. Seen resting in bed, comfortable, not in distress States that she feels that she is improving gradually but still weak No problems with urination Having some low back pain No other new symptoms Review of Systems Review of Systems: all noted and negative except for above Physical Exam Physical Exam: General- oriented x 3, not in distress, speaks in sentences with no effort or accessory muscle use Eyes- anicteric Neck- no JVD Lungs- clear breath sounds bilaterally, no rales/wheezes Heart- normal rate, regular rhythm; no murmurs Abdomen- normal bowel sounds, nondistended, soft, nontender Extremities- no pretibial edema, no calf tenderness Neuro- alert, oriented x 3; no gross focal neurologic deficits Skin- warm & dry Results & Data Results & Data Vital Signs (Past 12 Hours) Vital Signs Temp Pulse Pulse Resp BP Pulse Ox O2 Del Method 09/24/23 16:12 81 09/24/23 15:00 36.6 C 81 16 113/70 95 Nasal Cannula 09/24/23 12:36 36.6 C 79 16 161/65 H 95 Nasal Cannula 09/24/23 08:04 36.7 C 88 16 115/46 L 95 Nasal Cannula 09/24/23 08:00 Nasal Cannula O2 Flow Rate 09/24/23 16:12 09/24/23 15:00 3 09/24/23 12:36 3 09/24/23 08:04 3 09/24/23 08:00 3 all noted and reviewed including below
[2023-09-24] MEDS: traZODone HCL 100 MG TAB PO SCH (21:11)
[2023-09-24] MEDS: rOPINIRole HCL 2 MG TABLET PO SCH (21:12)
[2023-09-24] MEDS: LANTUS PER UNIT CHARGE SC SCH (21:17)
[2023-09-25] MEDS: LEVOTHYROXINE SODIUM 200 MCG TABLET PO SCH (05:48)
[2023-09-25] MEDS: LEVOTHYROXINE SODIUM 50 MCG TABLET PO SCH (05:48)
[2023-09-25 06:35] LABS: BUN Creatinine Ratio 10.6 (10-20); Calcium 8.8 mg/dl (8.6-10.3); Creatinine Clr Calc Pharmacy 43.9 ml/min; Est GFR (African American) 35.3 ml/min; Est GFR (Non-African American) 30.5 ml/min
[2023-09-25] MEDS: APIXABAN 5 MG TABLET PO SCH ×2 (09:39→20:55)
[2023-09-25] MEDS: DULoxetine HCL 60 MG CAP PO SCH (09:40)
[2023-09-25] MEDS: DOCUSATE SODIUM/SENNA 50/8.6MG TAB PO SCH ×2 (09:40→20:56)
[2023-09-25] MEDS: CIPROFLOXACIN 250 MG TAB PO SCH ×2 (09:40→20:58)
[2023-09-25] MEDS: ASPIRIN 81 MG ECTAB PO SCH (09:40)
[2023-09-25] MEDS: ATORVASTATIN 20 MG TAB PO SCH (09:41)
[2023-09-25] MEDS: GABAPENTIN 300 MG CAP PO SCH ×3 (09:41→20:59)
[2023-09-25] MEDS: PANTOprazole 40 MG TAB PO SCH (09:41)
[2023-09-25] MEDS: CLOPIDOGREL BISULFATE 75 MG TAB PO SCH (09:41)
[2023-09-25] MEDS: MAGNESIUM OXIDE 400 MG TAB PO SCH ×2 (09:42→20:56)
[2023-09-25] MEDS: FUROSEMIDE 40 MG/4 ML VIAL IV SCH ×2 (09:42→18:27)
[2023-09-25] MEDS: POLYETHYLENE (MIRALAX) 17 GM PACK PO SCH (09:43)
[2023-09-25] MEDS: INSULIN ASPART PER UNIT CHARGE SC SCH ×4 (09:48→21:04)
[2023-09-25] MEDS: POTASSIUM CHLORIDE CRTAB 20 MEQ TABCR PO SCH ×2 (09:49→18:33)
[2023-09-25] MEDS: clonazePAM 0.5 MG TAB PO SCH ×2 (09:50→21:00)
--- NOTE | 2023-09-25 11:54 | Nephrology Progress Note ---
Date of Service September 25, 2023 Assessment & Plan (1) Acute on chronic kidney failure: Plan: Patient with acute kidney injury on CKD likely due to ischemic ATN in setting of Klebsiella bacteremia. Creatinine of 1.7 today. Baseline creatinine around 1.7. Electrolytes are stable. She is slightly hypervolemic. She was net -1 L yesterday. -Continue Lasix 30 mg twice daily IV -Avoid nephrotoxins such as contrast. -Daily BMP -From renal standpoint patient can be discharged to rehab (2) Sepsis: Plan: Patient with sepsis due to Klebsiella pneumonia UTI and bacteremia. She is getting ceftriaxone per primary team dosed for current eGFR. (3) Acute on chronic diastolic heart failure: Plan: Patient with chronic CHF. Continue Lasix as above. She is diuresing well. Monitor intake output. Admission and Anticipated Discharge Date Admission Date: September 20, 2023 Subjective Seen for ELSIE and volume overload. She feels better today. Still has some weakness. She is ambulating with a walker. Review of Systems 2 Review of Systems: All other systems were reviewed and negative except as noted in HPI Physical Exam 2 Physical Exam: General exam: Appears comfortable, no acute distress on oxygen NC HEENT: Pupils are equal and reactive to light Neck: No JVD, neck is supple trachea is midline Respiratory system: Crackles bilaterally. Gastrointestinal: Abdomen is soft, non distended, non tender, bowel sounds are present CVS: Regular rate and rhythm. No murmurs, rubs or gallops Musculoskeletal: No joint or muscle tenderness Extremities: Non tender, no edema, peripheral pulses are present Neuro: Oriented, no tremors, no focal neurological deficits Skin: No rashes Results & Data Vital Signs (Past 12 Hours) Vital Signs Temp Pulse Pulse Resp BP Pulse Ox O2 Del Method 09/25/23 11:27 36.5 C 80 16 94/58 L 100 Nasal Cannula 09/25/23 07:53 36.5 C 74 16 105/63 92 Nasal Cannula 09/25/23 07:35 76 09/25/23 03:58 36.7 C 78 20 126/74 97 Nasal Cannula 09/25/23 00:43 78 O2 Flow Rate 09/25/23 11:27 3 09/25/23 07:53 3 09/25/23 07:35 09/25/23 03:58 3 09/25/23 00:43 Laboratory Results 09/25/23 05:46
--- NOTE | 2023-09-25 19:31 | Hospitalist Progress Note ---
Date of Service September 25, 2023 delayed entry date of service noted above Assessment & Plan (1) Illness: Plan: per previous hospitalist notes with addendum: 68-year-old female with past medical history significant for type 2 diabetes, chronic hypoxic respiratory failure on 3 L oxygen, hyperlipidemia, postsurgical hypothyroidism, hyperparathyroidism secondary to renal disease, chronic kidney disease stage IIIb, interstitial lung disease, obstructive sleep apnea on CPAP, chronic diastolic CHF, history of DVT and PE s/p IVC filter, history of heparin- induced thrombocytopenia, venous insufficiency, hypertension, right carotid artery stenosis, morbid obesity, GERD, fibromyalgia, restless leg syndrome, osteoarthritis, lumbar radiculopathy, depression, statin intolerance, abnormality of gait ambulates with walker, anxiety, presents for flu like symptoms and found to have UTI KLEBSIELLA UTI, PYELONEPHRITIS BACTEREMIA Flulike symptoms Empirically started Zosyn ucultx and blood cultx - positive for Klebsiella repeat blood cultx negative so far ID consulted recommend Cipro PO x 14 days Continue Cipro ACUTE KIDNEY INJURY likely ATN from Bacteremia Nephro consulted Creatinine improving 1.7 Lasix 30mg IV BID Check BMP tomorrow Obstructive sleep apnea CPAP nightly Chronic respiratory failure History of interstitial lung disease Continue oxygen supplementation Chronic diastolic CHF - Lasix resumed Diabetes Continue home long-acting insulin Sliding scale Continue to monitor ELSIE on CKD stage III - management per above Recent right carotid carotid artery procedure Procedure site looks good - she is supposed to follow up w/ Dr. Tang - consulted however he is actually not available at this time, will need to follow up as outpt History of DVT and PE S/p IVC filter On Eliquis Hypothyroidism On Synthyroid Hypertension On diuretics Will monitor History of depression anxiety On trazodone and Klonopin Restless leg syndrome On ropinirole DVT prophylaxis on Eliquis Disposition Will need acute rehab or assisted facility Admission and Anticipated Discharge Date Admission Date: September 20, 2023 Subjective Follow-up for UTI, bacteremia, etc. Resting in bed, comfortable, not in distress Feeling she is improving overall Back pain improving, no plans urination Still on the weak side No other symptoms Review of Systems Review of Systems: all noted and negative except for above Physical Exam Physical Exam: General- oriented x 3, not in distress, speaks in sentences with no effort or accessory muscle use Eyes- anicteric Neck- no JVD Lungs- clear breath sounds bilaterally Heart- normal rate, regular rhythm; no murmurs Abdomen- normal bowel sounds, nondistended, soft, nontender Extremities- no pretibial edema, no calf tenderness Neuro- alert, oriented x 3; no gross focal neurologic deficits Skin- warm & dry Results & Data Results & Data Vital Signs (Past 12 Hours) Vital Signs Temp Pulse Pulse Resp BP Pulse Ox O2 Del Method 09/25/23 18:08 80 09/25/23 15:02 36.5 C 77 16 143/61 H 95 Nasal Cannula 09/25/23 11:27 36.5 C 80 16 94/58 L 100 Nasal Cannula 09/25/23 08:00 Nasal Cannula 09/25/23 07:53 36.5 C 74 16 105/63 92 Nasal Cannula 09/25/23 07:35 76 O2 Flow Rate 09/25/23 18:08 09/25/23 15:02 3 09/25/23 11:27 3 09/25/23 08:00 3 09/25/23 07:53 3 09/25/23 07:35 all noted and reviewed including below
[2023-09-25] MEDS: rOPINIRole HCL 2 MG TABLET PO SCH (20:56)
[2023-09-25] MEDS: traZODone HCL 100 MG TAB PO SCH (20:57)
[2023-09-25] MEDS: LANTUS PER UNIT CHARGE SC SCH (21:04)
[2023-09-25] MEDS: oxyCODONE HCL IR 5 MG TAB (IMMEDIATE RELEASE) PO PRN (23:26)
[2023-09-26] MEDS: traMADol HCL 50 MG TABLET PO PRN (04:46)
[2023-09-26] MEDS: LEVOTHYROXINE SODIUM 200 MCG TABLET PO SCH (05:56)
[2023-09-26] MEDS: LEVOTHYROXINE SODIUM 50 MCG TABLET PO SCH (05:56)
[2023-09-26] MEDS: oxyCODONE HCL IR 5 MG TAB (IMMEDIATE RELEASE) PO PRN ×2 (08:01→17:20)
[2023-09-26] MEDS: clonazePAM 0.5 MG TAB PO SCH ×2 (08:02→21:31)
[2023-09-26] MEDS: GABAPENTIN 300 MG CAP PO SCH ×3 (08:02→21:31)
[2023-09-26] MEDS: POTASSIUM CHLORIDE CRTAB 20 MEQ TABCR PO SCH ×2 (08:02→17:21)
[2023-09-26] MEDS: MAGNESIUM OXIDE 400 MG TAB PO SCH ×2 (08:03→21:32)
[2023-09-26] MEDS: ASPIRIN 81 MG ECTAB PO SCH (08:03)
[2023-09-26] MEDS: DULoxetine HCL 60 MG CAP PO SCH (08:03)
[2023-09-26] MEDS: DOCUSATE SODIUM/SENNA 50/8.6MG TAB PO SCH ×2 (08:03→21:33)
[2023-09-26] MEDS: CIPROFLOXACIN 250 MG TAB PO SCH ×2 (08:03→21:31)
[2023-09-26] MEDS: ATORVASTATIN 20 MG TAB PO SCH (08:04)
[2023-09-26] MEDS: CLOPIDOGREL BISULFATE 75 MG TAB PO SCH (08:04)
[2023-09-26] MEDS: APIXABAN 5 MG TABLET PO SCH ×2 (08:04→21:32)
[2023-09-26] MEDS: PANTOprazole 40 MG TAB PO SCH (08:04)
[2023-09-26] MEDS: FUROSEMIDE 40 MG/4 ML VIAL IV SCH ×2 (08:06→17:20)
[2023-09-26 09:00] LABS: BUN Creatinine Ratio 9.8 (10-20); Creatinine Clr Calc Pharmacy 40.7 ml/min; Est GFR (African American) 32.3 ml/min; Est GFR (Non-African American) 27.9 ml/min; Potassium 3.9 mmol/L (3.5-5.1)
[2023-09-26] MEDS: POLYETHYLENE (MIRALAX) 17 GM PACK PO SCH ×2 (09:13→15:32)
[2023-09-26] MEDS: INSULIN ASPART PER UNIT CHARGE SC SCH ×4 (09:16→21:30)
--- NOTE | 2023-09-26 14:59 | Hospitalist Progress Note ---
Date of Service September 26, 2023 Assessment & Plan (1) Illness: Plan: per previous hospitalist notes with addendum: 68-year-old female with past medical history significant for type 2 diabetes, chronic hypoxic respiratory failure on 3 L oxygen, hyperlipidemia, postsurgical hypothyroidism, hyperparathyroidism secondary to renal disease, chronic kidney disease stage IIIb, interstitial lung disease, obstructive sleep apnea on CPAP, chronic diastolic CHF, history of DVT and PE s/p IVC filter, history of heparin- induced thrombocytopenia, venous insufficiency, hypertension, right carotid artery stenosis, morbid obesity, GERD, fibromyalgia, restless leg syndrome, osteoarthritis, lumbar radiculopathy, depression, statin intolerance, abnormality of gait ambulates with walker, anxiety, presents for flu like symptoms and found to have UTI KLEBSIELLA UTI, PYELONEPHRITIS BACTEREMIA Flulike symptoms Empirically started Zosyn ucultx and blood cultx - positive for Klebsiella repeat blood cultx negative so far ID consulted recommend Cipro PO x 14 days stable Cipro Day 5/14 ACUTE KIDNEY INJURY likely ATN from Bacteremia Nephro consulted Creatinine improving 1.7 Lasix 30mg IV BID Check BMP tomorrow Obstructive sleep apnea CPAP nightly Chronic respiratory failure History of interstitial lung disease Continue oxygen supplementation Chronic diastolic CHF - Lasix resumed Diabetes Continue home long-acting insulin Sliding scale Continue to monitor ELSIE on CKD stage III - management per above Recent right carotid carotid artery procedure Procedure site looks good - she is supposed to follow up w/ Dr. Tang - consulted however he is actually not available at this time, will need to follow up as outpt History of DVT and PE S/p IVC filter On Eliquis Hypothyroidism On Synthyroid Hypertension On diuretics Will monitor History of depression anxiety On trazodone and Klonopin Restless leg syndrome On ropinirole DVT prophylaxis on Eliquis Disposition Will need acute rehab or usp facility Admission and Anticipated Discharge Date Admission Date: September 20, 2023 Subjective ff up for UTI, bacteremia, etc. Resting in bed, comfortable, not in distress Feels okay overall No new symptoms Review of Systems Review of Systems: all noted and negative except for above Physical Exam Physical Exam: General- oriented x 3, not in distress, speaks in sentences with no effort or accessory muscle use Eyes- anicteric Neck- no JVD Lungs- clear breath sounds bilaterally, no rales/wheezes Heart- normal rate, regular rhythm; no murmurs Abdomen- normal bowel sounds, nondistended, soft, no tenderness Extremities- no pretibial edema, no calf tenderness Neuro- alert, oriented x 3; no gross focal neurologic deficits Skin- warm & dry Results & Data Results & Data Vital Signs (Past 12 Hours) Vital Signs Temp Pulse Pulse Resp BP Pulse Ox O2 Del Method 09/26/23 14:54 81 09/26/23 11:51 36.7 C 95 H 20 171/76 H 96 Nasal Cannula 09/26/23 08:09 Nasal Cannula 09/26/23 07:48 36.8 C 80 20 124/66 97 Nasal Cannula 09/26/23 07:13 80 O2 Flow Rate 09/26/23 14:54 09/26/23 11:51 3 09/26/23 08:09 3 09/26/23 07:48 3 09/26/23 07:13
[2023-09-26] MEDS: LANTUS PER UNIT CHARGE SC SCH (21:31)
[2023-09-26] MEDS: rOPINIRole HCL 2 MG TABLET PO SCH (21:33)
[2023-09-26] MEDS: traZODone HCL 100 MG TAB PO SCH (21:33)
[2023-09-27] MEDS: oxyCODONE HCL IR 5 MG TAB (IMMEDIATE RELEASE) PO PRN ×3 (00:20→22:05)
[2023-09-27] MEDS: LEVOTHYROXINE SODIUM 50 MCG TABLET PO SCH (05:38)
[2023-09-27] MEDS: LEVOTHYROXINE SODIUM 200 MCG TABLET PO SCH (05:38)
[2023-09-27] MEDS: CLOPIDOGREL BISULFATE 75 MG TAB PO SCH (08:32)
[2023-09-27] MEDS: POLYETHYLENE (MIRALAX) 17 GM PACK PO SCH (08:32)
[2023-09-27] MEDS: DOCUSATE SODIUM/SENNA 50/8.6MG TAB PO SCH ×2 (08:32→21:10)
[2023-09-27] MEDS: GABAPENTIN 300 MG CAP PO SCH ×3 (08:33→21:11)
[2023-09-27] MEDS: APIXABAN 5 MG TABLET PO SCH ×2 (08:33→21:10)
[2023-09-27] MEDS: PANTOprazole 40 MG TAB PO SCH (08:33)
[2023-09-27] MEDS: CIPROFLOXACIN 250 MG TAB PO SCH ×2 (08:33→21:11)
[2023-09-27] MEDS: DULoxetine HCL 60 MG CAP PO SCH (08:33)
[2023-09-27] MEDS: ATORVASTATIN 20 MG TAB PO SCH (08:33)
[2023-09-27] MEDS: ASPIRIN 81 MG ECTAB PO SCH (08:33)
[2023-09-27] MEDS: MAGNESIUM OXIDE 400 MG TAB PO SCH ×2 (08:33→21:10)
--- NOTE | 2023-09-27 08:34 | Nephrology Progress Note ---
Date of Service September 27, 2023 Assessment & Plan (1) Acute on chronic kidney failure: Plan: Patient with acute kidney injury on CKD likely due to ischemic ATN in setting of Klebsiella bacteremia. Creatinine of 1.8 yesterday. Peak creatinine 2.4. Baseline creatinine around 1.7. Electrolytes are stable. She is slightly hypervolemic. She was net -900mL yesterday. -will tomorrow am resume prior OP regimen > lasix 60 mg po bid17 and K 20 Eq bid >>>f/u pending labs from this am which are essentially stable kidneywise -Avoid nephrotoxins such as contrast. -Daily BMP NEPHROLOGY D/C RECOMMENDATIONS (PRELIMINARY) -bmp at pcp f/u appt w/in one week after rehab d/c -bmp q M/Th while at rehab -[facility] d/c appt w/ any [facility] ordnance technician 3-4 wks after d/c w/ BMP drawn up to 5 days before OV and to be ordered by neph RN (2) Sepsis: Plan: Patient with sepsis due to Klebsiella pneumonia UTI and bacteremia. She is getting ceftriaxone per primary team dosed for current eGFR. (3) Acute on chronic diastolic heart failure: Plan: Patient with chronic CHF. Continue Lasix as above. She is diuresing well. Monitor intake output. Admission and Anticipated Discharge Date Admission Date: September 20, 2023 Subjective states her breathing and exertional dyspnea are at baseline; on 3L 02nc at home Review of Systems 2 Review of Systems: All systems reviewed & are unremarkable except as noted in Subjective Physical Exam 2 Constitutional: well developed and well nourished Eyes: EOM intact bilaterally ENMT: Ears: no external ear abnormality Nose: no external nose abnormality Mouth: + dry oral mucous membranes Neck: no nuchal rigidity Respiratory: normal respiratory effort Auscultation: + diminished lung sounds Gastrointestinal (Abdomen): Inspection/Auscultation: normal bowel sounds P ercussion/Palpation: abdomen soft; abdomen nontender Musculoskeletal: Extremities: strength 5/5 throughout Skin: no rashes, warm and dry Neurologic: milan, fluent speech, no tremor Results & Data Vital Signs (Past 12 Hours) Vital Signs Temp Pulse Pulse Resp BP BP Pulse Ox 09/27/23 07:44 36.5 C 83 20 121/68 95 09/27/23 07:38 85 09/27/23 04:14 36.6 C 86 18 107/52 L 96 09/26/23 23:29 36.7 C 77 18 98/57 L 94 09/26/23 22:59 74 09/26/23 21:30 88 101/62 O2 Del Method O2 Flow Rate 09/27/23 07:44 Nasal Cannula 3 09/27/23 07:38 09/27/23 04:14 Nasal Cannula 3 09/26/23 23:29 Nasal Cannula 3 09/26/23 22:59 09/26/23 21:30 Laboratory Results 09/22/23 06:36 09/27/23 08:45
[2023-09-27] MEDS: clonazePAM 0.5 MG TAB PO SCH ×2 (08:45→21:09)
[2023-09-27] MEDS: POTASSIUM CHLORIDE CRTAB 20 MEQ TABCR PO SCH ×2 (08:45→16:03)
[2023-09-27] MEDS: INSULIN ASPART PER UNIT CHARGE SC SCH ×4 (08:45→21:09)
[2023-09-27 09:25] LABS: Calcium 9.1 mg/dl (8.6-10.3); Creatinine Clr Calc Pharmacy 45.3 ml/min; Est GFR (African American) 36.9 ml/min; Est GFR (Non-African American) 31.8 ml/min; Potassium 3.8 mmol/L (3.5-5.1)
[2023-09-27] MEDS: FUROSEMIDE 20 MG TAB PO SCH ×2 (10:05→18:20)
--- NOTE | 2023-09-27 18:49 | Hospitalist Progress Note ---
Date of Service September 27, 2023 Assessment & Plan (1) Illness: Plan: per previous hospitalist notes with addendum: 68-year-old female with past medical history significant for type 2 diabetes, chronic hypoxic respiratory failure on 3 L oxygen, hyperlipidemia, postsurgical hypothyroidism, hyperparathyroidism secondary to renal disease, chronic kidney disease stage IIIb, interstitial lung disease, obstructive sleep apnea on CPAP, chronic diastolic CHF, history of DVT and PE s/p IVC filter, history of heparin- induced thrombocytopenia, venous insufficiency, hypertension, right carotid artery stenosis, morbid obesity, GERD, fibromyalgia, restless leg syndrome, osteoarthritis, lumbar radiculopathy, depression, statin intolerance, abnormality of gait ambulates with walker, anxiety, presents for flu like symptoms and found to have UTI KLEBSIELLA UTI, PYELONEPHRITIS BACTEREMIA urine culture and blood culture - positive for Klebsiella repeat blood cultx negative so far ID consulted recommend Cipro PO x 14 days stable Cipro 500 mg p.o. twice daily day 03/09 ACUTE KIDNEY INJURY likely ATN from Bacteremia Nephro consulted Creatinine improving 1.6 Resume usual Lasix 60 mg p.o. twice daily Will need to monitor BMP while at this rehab or nursing home facility Obstructive sleep apnea CPAP nightly Chronic respiratory failure History of interstitial lung disease Continue oxygen supplementation Chronic diastolic CHF -Usual Lasix resumed Diabetes Continue home long-acting insulin Sliding scale Continue to monitor ELSIE on CKD stage III - management per above Recent right carotid carotid artery procedure Procedure site looks good - she is supposed to follow up w/ Dr. Tang - consulted however he is actually not available at this time, will need to follow up as outpt History of DVT and PE S/p IVC filter On Eliquis Hypothyroidism On Synthyroid Hypertension On diuretics Will monitor History of depression anxiety On trazodone and Klonopin Restless leg syndrome On ropinirole DVT prophylaxis on Eliquis Disposition Will need acute rehab or nursing home facility PT OT evaluation in progress Admission and Anticipated Discharge Date Admission Date: September 20, 2023 Subjective Follow-up for UTI, bacteremia, etc. Seen resting in bed, comfortable, not in distress States she feels fine overall Weakness seems to be improving No other new symptom Review of Systems Review of Systems: all noted and negative except for above Physical Exam Physical Exam: General- oriented x 3, not in distress, speaks in sentences with no effort or accessory muscle use Eyes- anicteric Neck- no JVD Lungs- clear breath sounds bilaterally Heart- normal rate, regular rhythm; no murmurs Abdomen- normal bowel sounds, nondistended, soft, nontender Extremities-mild pretibial edema, no calf tenderness Neuro- alert, oriented x 3; no gross focal neurologic deficits Skin- warm & dry Results & Data Results & Data Vital Signs (Past 12 Hours) Vital Signs Temp Pulse Pulse Resp BP Pulse Ox O2 Del Method 09/27/23 17:04 79 09/27/23 15:44 36.5 C 83 16 124/74 97 Nasal Cannula 09/27/23 11:39 77 09/27/23 11:16 36.6 C 91 H 20 97/53 L 93 Nasal Cannula 09/27/23 09:30 Nasal Cannula 09/27/23 07:44 36.5 C 83 20 121/68 95 Nasal Cannula 09/27/23 07:38 85 O2 Flow Rate 09/27/23 17:04 09/27/23 15:44 3 09/27/23 11:39 09/27/23 11:16 3 09/27/23 09:30 3 09/27/23 07:44 3 09/27/23 07:38 all noted and reviewed including below
[2023-09-27] MEDS: LANTUS PER UNIT CHARGE SC SCH (21:09)
[2023-09-27] MEDS: rOPINIRole HCL 2 MG TABLET PO SCH (21:09)
[2023-09-27] MEDS: traZODone HCL 100 MG TAB PO SCH (21:11)
[2023-09-28] MEDS: traMADol HCL 50 MG TABLET PO PRN (01:03)
[2023-09-28] MEDS: LEVOTHYROXINE SODIUM 200 MCG TABLET PO SCH (06:05)
[2023-09-28] MEDS: LEVOTHYROXINE SODIUM 50 MCG TABLET PO SCH (06:05)
[2023-09-28] MEDS: oxyCODONE HCL IR 5 MG TAB (IMMEDIATE RELEASE) PO PRN ×3 (06:05→19:41)
[2023-09-28] MEDS: DULoxetine HCL 60 MG CAP PO SCH (08:11)
[2023-09-28] MEDS: CIPROFLOXACIN 250 MG TAB PO SCH ×2 (08:11→20:57)
[2023-09-28] MEDS: CLOPIDOGREL BISULFATE 75 MG TAB PO SCH (08:11)
[2023-09-28] MEDS: APIXABAN 5 MG TABLET PO SCH ×2 (08:11→20:57)
[2023-09-28] MEDS: ASPIRIN 81 MG ECTAB PO SCH (08:11)
[2023-09-28] MEDS: PANTOprazole 40 MG TAB PO SCH (08:11)
[2023-09-28] MEDS: MAGNESIUM OXIDE 400 MG TAB PO SCH ×2 (08:11→20:59)
[2023-09-28] MEDS: GABAPENTIN 300 MG CAP PO SCH ×3 (08:12→20:58)
[2023-09-28] MEDS: ATORVASTATIN 20 MG TAB PO SCH (08:12)
[2023-09-28] MEDS: POLYETHYLENE (MIRALAX) 17 GM PACK PO SCH (08:13)
[2023-09-28] MEDS: DOCUSATE SODIUM/SENNA 50/8.6MG TAB PO SCH ×2 (08:18→20:58)
[2023-09-28] MEDS: ACETAMINOPHEN 325 MG TAB PO PRN (08:18)
[2023-09-28] MEDS: clonazePAM 0.5 MG TAB PO SCH ×2 (08:18→20:57)
[2023-09-28] MEDS: POTASSIUM CHLORIDE CRTAB 20 MEQ TABCR PO SCH ×2 (08:18→18:21)
[2023-09-28] MEDS: FUROSEMIDE 20 MG TAB PO SCH ×2 (08:30→18:20)
[2023-09-28] MEDS: INSULIN ASPART PER UNIT CHARGE SC SCH ×4 (09:09→20:56)
--- NOTE | 2023-09-28 11:04 | XRay Report ---
LEFT KNEE 3 VIEWS CLINICAL HISTORY: Fall with left knee pain. FINDINGS: AP, crosstable lateral, and sunrise views of the left knee are compared to study dated 2020. The skeletal structures are osteopenic. No fracture is seen. There is advanced degenerative lenin rowing in the medial and patellofemoral compartments. Minimal narrowing is seen in the lateral compar tment. Bony sclerosis and osteochondral irregularity is noted in the medial compartment. There are ma rginal osteophytes and patellar enthesophyte. A small joint effusion is observed. Mild soft tissue sw elling is seen around the knee. IMPRESSION: 1. Mild soft tissue swelling with no acute bony abnormality identified. 2. Osteopenia and degenerative change as above. Electronically signed by: Zachariah Borden M.D. 09/28/2023 11:02 AM
--- NOTE | 2023-09-28 13:24 | Consultation ---
Date of Consultation September 28, 2023 Assessment & Plan (1) Internal carotid artery stent present: Pt now 3 weeks s/p uncomplicated R TCAR, doing well post op. No new sx and her incision is healing nicely. Will see in office in 6 weeks with carotid US for reeval. Pt agreeable. Please call if needed. History of Present Illness Reason for Consultation: recent R TCAR Attending Physician: Main Carmichael MD History of Present Illness 68 yo f with multiple medical problems, s/p uncomplicated R TCAR on 09/06/[address] Tang, seen in f/u today. Pt was admitted wtih fever and UTI, now improving. She denies any sx of cerebrovascular insufficiency, including amaurosis, unilateral extremity weakness numbness or tingling, difficulty spe aking or swallowing, facial droop, sudden onset confusion, other complaints. No concerns regarding her incision. Allergies Allergy/AdvReac Type Severity Reaction Status Date / Time morphine Allergy Severe Swelling, Verified 09/06/23 06:26 "Violent reaction- almost " dapagliflozin [From Farxiga] Allergy Intermediate Yeast Verified 09/06/23 06:26 infections tetanus toxoid, adsorbed Allergy Intermediate Passed Verified 09/06/23 06:26 out, "got sick" as child bupropion [From Wellbutrin] AdvReac Intermediate Recurrent Verified 09/06/23 06:26 falls as per patient codeine AdvReac Intermediate Hallucinati Verified 09/06/23 06:26 ons empagliflozin AdvReac Intermediate Yeast Verified 09/06/23 06:26 [From Jardiance] infections heparin AdvReac Intermediate HIT, Verified 09/06/23 06:26 "Fluid in lungs" hydrocodone [From Vicodin] AdvReac Intermediate Drowsy Verified 09/06/23 06:26 Home Medications Medication Instructions Recorded Confirmed Type apixaban 5 mg tablet (Eliquis) 5 mg PO BID 09/20/23 09/20/23 History aspirin 81 mg tablet,delayed 81 mg PO DAILY 09/20/23 09/20/23 History release atorvastatin 20 mg tablet 20 mg PO DAILY 09/20/23 09/20/23 History baclofen 10 mg tablet 10 mg PO BID PRN Muscle Spasm 09/20/23 09/20/23 History clonazepam 0.5 mg tablet 0.5 mg PO BID 09/20/23 09/20/23 History clopidogrel 75 mg tablet 75 mg PO DAILY 09/20/23 09/20/23 History duloxetine 60 mg capsule,delayed 60 mg PO DAILY 09/20/23 09/20/23 History release furosemide 40 mg tablet 60 mg PO BID 09/20/23 09/20/23 History gabapentin 300 mg capsule 600 mg PO TID 09/20/23 09/20/23 History insulin aspart U-100 100 unit/mL 8 unit subcut UD 09/20/23 09/20/23 History (3 mL) subcutaneous pen (Novolog FlexPen U-100 Insulin aspart) insulin degludec 100 unit/mL (3 50 unit subcut HS 09/20/23 09/20/23 History mL) subcutaneous pen (Tresiba FlexTouch U-100 insulin) levothyroxine 200 mcg tablet 200 mcg PO DAILY 09/20/23 09/20/23 History levothyroxine 50 mcg tablet 50 mcg PO DAILY 09/20/23 09/20/23 History magnesium oxide 400 mg (241.3 mg 400 mg PO BID 09/20/23 09/20/23 History magnesium) tablet omeprazole 20 mg capsule,delayed 20 mg PO DAILY 09/20/23 09/20/23 History release oxycodone 5 mg tablet 5 mg PO Q6H PRN Pain 09/20/23 09/20/23 History potassium chloride 20 mEq 20 meq PO BID 09/20/23 09/20/23 History tablet,extended release(part/cryst) ropinirole 2 mg tablet 2 mg PO HS 09/20/23 09/20/23 History sennosides 8.6 mg-docusate sodium 1 tab PO BID 09/20/23 09/20/23 History 50 mg tablet (Senna-Time S) tirzepatide 5 mg/0.5 mL 5 mg subcut WK 09/20/23 09/20/23 History subcutaneous pen injector (Mounjaro) tramadol 50 mg tablet 50 mg PO TID PRN Pain 09/20/23 09/20/23 History trazodone 100 mg tablet 100 mg PO HS 09/20/23 09/20/23 History Patient History Medical History Acute pyelonephritis Hypomagnesemia Mitral valve stenosis Echo 06/2023: Borderline mild mitral stenosis secondary to severe mitral annular calcification Chronic hypoxemic respiratory failure Cataract, bilateral Lumbago with sciatica Lower extremity pain, bilateral Neuropathy feet On home oxygen therapy 3L continuous CHF (congestive heart failure) Follows with Dr. Woodall Subclavian artery stenosis Cerebrovascular duplex study 06/2023: Retrograde flow in the right vertebral artery. 50-69% proximal right subclavian artery stenosis. Antegrade flow in the left vertebral artery. Normal flow in the left subclavian artery. Carotid stenosis, right Cerebrovascular duplex 07/11/23: 80-99% R ICA stenosis. No hemodynamically significant stenosis in the LICA. Diabetes mellitus, type II CKD (chronic kidney disease), stage III Follows with [facility] ELISSA on CPAP CPAP + 3L O2 (O2 is continuous) HTN (hypertension) HLD (hyperlipidemia) Morbid obesity HIT (heparin-induced thrombocytopenia) 2008, [facility] then life flight to [place] > "resolved" Depression with anxiety Hypothyroidism History of pulmonary embolism 2008 s/p zoraida filter GERD (gastroesophageal reflux disease) RLS (restless legs syndrome) History of DVT (deep vein thrombosis) 2008 (during ICU [facility] admission/PNA) Presence of IVC filter 2008 Fibromyalgia Surgical History Family history of reaction to anesthesia Brother/niece- PONV Brother- "wakes up violent" History of colostomy reversal History of tooth extraction History of arthroscopy left ankle History of incisional hernia repair Nausea and vomiting after administration of anesthetic agent History of colonoscopy History of cholecystectomy History of total right knee replacement History of tracheostomy 06/2009 (per [facility] records), secondary to acute respiratory failure in setting of PNA, reversed a few months later History of thyroidectomy, total 2010 History of colon resection secondary to R colon perforation, resected treated with colostomy and eventual reversal in 2008, Dr. Lerma Family History Father , age 74 Lung cancer Mother , age 45 Cirrhosis Social History Smoking Status: Never smoker Tobacco Type: Cigarettes Cigarettes Per Day: 1996; Second Hand Exposure: No; Do You Dip or Chew Tobacco: No; Tobacco Cessation Education Requested by Patient: No Hx Alcohol Use: No Hx Substance Use: No Preferred Language: Taiwanese Communication Ability: Effective Log Processor Operator Required: No Beliefs That Will Affect Care: None marital status: Single Current Living Situation: Alone Current Living Situation Comment: apartment How many Children do You have: 0 Feels Safe at Home: Yes Safety Concerns: Feels Safe At This Time Assistive Devices: Glasses, Oxygen - Continuous, Walker and Wheelchair Assistive Devices Comment: Rollator Review of Systems Review of Systems: All systems reviewed & are unremarkable except as noted in HPI & below Physical Exam Constitutional: WD/WN, vitals as above + obese, cooperative and comfortable; not in distress Neck: trachea midline r supraclavicular incision C/D/I. Suture knot visible laterally, removed easily . No erythema, edema, ecchymosis, drainage, tenderness. Results & Data Vital Signs (Past 12 Hours) Vital Signs Temp Pulse Pulse Resp BP Pulse Ox O2 Del Method 09/28/23 11:38 36.6 C 82 16 112/54 L 93 Nasal Cannula 09/28/23 11:08 Nasal Cannula 09/28/23 10:09 85 09/28/23 08:04 36.7 C 85 16 111/64 94 Nasal Cannula 09/28/23 02:52 36.5 C 87 18 103/51 L 97 Nasal Cannula O2 Flow Rate 09/28/23 11:38 3 09/28/23 11:08 3 09/28/23 10:09 09/28/23 08:04 3 09/28/23 02:52 2
--- NOTE | 2023-09-28 13:41 | Hospitalist Progress Note ---
Date of Service September 28, 2023 Assessment & Plan (1) Illness: Plan: 68-year-old female with past medical history significant for type 2 diabetes, chronic hypoxic respiratory failure on 3 L oxygen, hyperlipidemia, postsurgical hypothyroidism, hyperparathyroidism secondary to renal disease, chronic kidney disease stage IIIb, interstitial lung disease, obstructive sleep apnea on CPAP, chronic diastolic CHF, history of DVT and PE s/p IVC filter, history of heparin- induced thrombocytopenia, venous insufficiency, hypertension, right carotid artery stenosis, morbid obesity, GERD, fibromyalgia, restless leg syndrome, osteoarthritis, lumbar radiculopathy, depression, statin intolerance, abnormality of gait ambulates with walker, anxiety, presents for flu like symptoms and found to have UTI KLEBSIELLA UTI, PYELONEPHRITIS BACTEREMIA Patient presented with flulike symptoms. urine culture and blood culture - positive for Klebsiella repeat blood cultx no growth till date ID recommend Cipro PO x 14 days ACUTE KIDNEY INJURY likely ATN from Bacteremia Nephro consulted for comanagement Creatinine improving 1.6 Resume usual Lasix 60 mg p.o. twice daily Obstructive sleep apnea CPAP nightly Chronic respiratory failure History of interstitial lung disease Continue oxygen supplementation Chronic diastolic CHF Appear: Appreciated -Usual Lasix resumed Diabetes Continue home long-acting insulin Sliding scale Continue to monitor ELSIE on CKD stage III - management per above Recent right carotid carotid artery procedure Procedure site looks good Vascular surgery consulted.Recommend to follow-up in the office in 6 weeks. History of DVT and PE S/p IVC filter On Eliquis Hypothyroidism On Synthyroid Hypertension On diuretics Will monitor History of depression anxiety On trazodone and Klonopin Restless leg syndrome On ropinirole DVT prophylaxis on Eliquis Disposition Will need acute rehab or jail facility Case management on board. Time spent evaluating patient, direct bedside care, chart review, placing orders, interpretation of diagnostic studies, discussion with consultants, patient, and family members, as well as other required patient management activities is 50-minute Please note the above document was generated using voice recognition software. It may contain grammatical, syntax or spelling errors. Any formal questions or concerns about the content, text or information contained within the body of this dictation should be directly addressed to the provider for clarification Admission and Anticipated Discharge Date Admission Date: September 20, 2023 Subjective Patient seen and examined at bedside. She reports pain in her left knee on movement. She denies fever, chills, chest pain or shortness of breath. Review of Systems Review of Systems: All systems reviewed & are unremarkable except as noted in Subjective Physical Exam Physical Exam: Constitutional: Alert, oriented x 3; not in any distress. Morbidly obese. Respiratory: normal respiratory effort, lungs clear to auscultation, no wheeze, rales, rhonchi. Normal insp/exp effort, no accessory muscle use Cardiovascular: RRR, no murmur, no edema Vessels: no JVD or carotid bruit Chest: normal inspection of chest Abdomen: Soft, nontender. Musculoskeletal: Mild tenderness present on palpation of left knee. Skin: no rashes, warm and dry normal turgor Results & Data Results & Data Vital Signs (Past 12 Hours) Vital Signs Temp Pulse Pulse Resp BP Pulse Ox O2 Del Method 09/28/23 11:38 36.6 C 82 16 112/54 L 93 Nasal Cannula 09/28/23 11:08 Nasal Cannula 09/28/23 10:09 85 09/28/23 08:04 36.7 C 85 16 111/64 94 Nasal Cannula 09/28/23 02:52 36.5 C 87 18 103/51 L 97 Nasal Cannula O2 Flow Rate 09/28/23 11:38 3 09/28/23 11:08 3 09/28/23 10:09 09/28/23 08:04 3 09/28/23 02:52 2
[2023-09-28] MEDS: LANTUS PER UNIT CHARGE SC SCH (20:56)
[2023-09-28] MEDS: rOPINIRole HCL 2 MG TABLET PO SCH (20:59)
[2023-09-28] MEDS: traZODone HCL 100 MG TAB PO SCH (20:59)
[2023-09-29] MEDS: LEVOTHYROXINE SODIUM 50 MCG TABLET PO SCH (06:13)
[2023-09-29] MEDS: LEVOTHYROXINE SODIUM 200 MCG TABLET PO SCH (06:13)
[2023-09-29] MEDS: traMADol HCL 50 MG TABLET PO PRN (06:13)
[2023-09-29 06:17] LABS: Basophils # (auto) 0.06 K/uL (0.00-0.20); Basophils % (auto) 0.6 %; Eosinophils # (auto) 0.55 K/uL (0.00-0.50); Eosinophils % (auto) 5.7 %; Hematocrit (blood only) 32.6 % (37.0-47.0); Hemoglobin 9.7 g/dl (12.0-16.0); Immature Granulocytes # (auto) 0.21 K/uL (0.01-0.20); Immature Granulocytes % (auto) 2.2 %; Lymphocytes # (auto) 2.46 K/uL (1.20-3.40); Lymphocytes % (auto) 25.7 %; Mean Corpuscular Hemoglobin 28.3 pg (25.0-34.0); Mean Corpuscular Hgb Conc 29.8 g/dL (32.0-36.0); Mean Platelet Volume 9.5 fL (9.4-12.4); Monocytes % (auto) 6.3 %; Neutrophils # (auto) 5.71 K/uL (1.40-6.50); Neutrophils % (auto) 59.5 %; Platelet Count 475 K/uL (130-400); RDW Coefficient of Variation 14.6 % (11.5-14.5); RDW Standard Deviation 51.3 fL (36.4-46.3); Red Blood Count 3.43 M/uL (4.20-5.40); White Blood Count 9.59 K/ul (4.8-10.8)
[2023-09-29 06:32] LABS: BUN Creatinine Ratio 12.3 (10-20); Calcium 8.9 mg/dl (8.6-10.3); Creatinine Clr Calc Pharmacy 39.6 ml/min; Est GFR (African American) 31.5 ml/min; Est GFR (Non-African American) 27.1 ml/min; Potassium 3.5 mmol/L (3.5-5.1)
[2023-09-29] MEDS: GABAPENTIN 300 MG CAP PO SCH ×3 (09:23→20:26)
[2023-09-29] MEDS: MAGNESIUM OXIDE 400 MG TAB PO SCH ×2 (09:23→20:25)
[2023-09-29] MEDS: APIXABAN 5 MG TABLET PO SCH ×2 (09:24→20:26)
[2023-09-29] MEDS: DOCUSATE SODIUM/SENNA 50/8.6MG TAB PO SCH ×2 (09:24→20:27)
[2023-09-29] MEDS: FUROSEMIDE 20 MG TAB PO SCH ×2 (09:25→18:15)
[2023-09-29] MEDS: CIPROFLOXACIN 250 MG TAB PO SCH ×2 (09:25→20:27)
[2023-09-29] MEDS: ATORVASTATIN 20 MG TAB PO SCH (09:26)
[2023-09-29] MEDS: ASPIRIN 81 MG ECTAB PO SCH (09:26)
[2023-09-29] MEDS: DULoxetine HCL 60 MG CAP PO SCH (09:26)
[2023-09-29] MEDS: PANTOprazole 40 MG TAB PO SCH (09:26)
[2023-09-29] MEDS: CLOPIDOGREL BISULFATE 75 MG TAB PO SCH (09:26)
[2023-09-29] MEDS: POLYETHYLENE (MIRALAX) 17 GM PACK PO SCH (09:27)
[2023-09-29] MEDS: INSULIN ASPART PER UNIT CHARGE SC SCH ×4 (09:27→20:25)
[2023-09-29] MEDS: POTASSIUM CHLORIDE CRTAB 20 MEQ TABCR PO SCH ×2 (09:30→18:17)
[2023-09-29] MEDS: clonazePAM 0.5 MG TAB PO SCH ×2 (09:35→20:25)
[2023-09-29] MEDS ORDERED: CALAMINE/PRAMOXINE LOTION 180 APPLN/180 ML BTL EXT PRN (09:55)
[2023-09-29] MEDS: DICLOFENAC SOD 1% GEL 100 GM TUBE EXT SCH ×2 (11:09→20:28)
--- NOTE | 2023-09-29 11:39 | Nephrology Progress Note ---
Date of Service September 29, 2023 Assessment & Plan Admission and Anticipated Discharge Date Admission Date: September 20, 2023 Subjective Assessment & Plan (1) Acute on chronic kidney failure: Plan: Patient with acute kidney injury on CKD likely due to ischemic ATN in setting of Klebsiella bacteremia. Creatinine of 1.8 yesterday and today. Peak creatinine 2.4. Baseline creatinine around 1.7-1.8. Electrolytes are stable. She is slightly hypervolemic. NEPHROLOGY D/C RECOMMENDATIONS bmp at pcp f/u appt w/in one week after rehab d/c bmp weekly while at rehab [facility] d/c appt w/ [facility] 3-4 wks after d/c w/ BMP drawn up to 5 days before OV and to be ordered by neph RN Diuretics and K same as before. (2) Sepsis: Plan: Patient with sepsis due to Klebsiella pneumonia UTI and bacteremia. She is getting ceftriaxone per primary team dosed for current eGFR. (3) Acute on chronic diastolic heart failure: Plan: Patient with chronic CHF. Continue Lasix 60 bid as above. She is diuresing well. Monitor intake output. Subjective States her breathing and exertional dyspnea are at baseline. Feels stronger now. making urine . on 3L 02nc at home and here Review of Systems Review of Systems: All systems reviewed & are unremarkable except as noted in Subjective Physical Exam Constitutional: well developed and well nourished. obese++ Eyes: EOM intact bilaterally ENMT: Ears: no external ear abnormality Nose: no external nose abnormality Mouth: + dry oral mucous membranes Neck: no nuchal rigidity Respiratory: normal respiratory effort Auscultation: + diminished lung sounds Gastrointestinal (Abdomen): Inspection/Auscultation: normal bowel sounds Percussion/Palpation: abdomen soft; abdomen nontender Musculoskeletal: Extremities: 1+ edema Skin: no rashes, warm and dry Neurologic: milan, fluent speech, no tremor Results & Data Vital Signs (Past 12 Hours) Vital Signs Temp Pulse Pulse Resp BP BP Pulse Ox 09/29/23 08:03 36.7 C 89 18 161/94 H 100 09/29/23 07:30 09/29/23 07:16 93 H 09/29/23 04:00 36.6 C 79 20 99/56 L 97 09/29/23 00:33 101/66 09/29/23 00:19 36.7 C 80 20 91/43 L 94 O2 Del Method O2 Flow Rate 09/29/23 08:03 Nasal Cannula 3 09/29/23 07:30 Nasal Cannula 3 09/29/23 07:16 09/29/23 04:00 Nasal Cannula 3 09/29/23 00:33 09/29/23 00:19 Nasal Cannula 2
--- NOTE | 2023-09-29 13:42 | Hospitalist Progress Note ---
Date of Service September 29, 2023 Assessment & Plan (1) Illness: Plan: 68-year-old female with past medical history significant for type 2 diabetes, chronic hypoxic respiratory failure on 3 L oxygen, hyperlipidemia, postsurgical hypothyroidism, hyperparathyroidism secondary to renal disease, chronic kidney disease stage IIIb, interstitial lung disease, obstructive sleep apnea on CPAP, chronic diastolic CHF, history of DVT and PE s/p IVC filter, history of heparin- induced thrombocytopenia, venous insufficiency, hypertension, right carotid artery stenosis, morbid obesity, GERD, fibromyalgia, restless leg syndrome, osteoarthritis, lumbar radiculopathy, depression, statin intolerance, abnormality of gait ambulates with walker, anxiety, presents for flu like symptoms and found to have UTI KLEBSIELLA UTI, PYELONEPHRITIS BACTEREMIA Patient presented with flulike symptoms. urine culture and blood culture - positive for Klebsiella repeat blood cultx no growth till date ID recommend Cipro PO x 14 days ACUTE KIDNEY INJURY likely ATN from Bacteremia Nephro consulted for comanagement Creatinine improving 1.6 Resume usual Lasix 60 mg p.o. twice daily Obstructive sleep apnea CPAP nightly Chronic respiratory failure History of interstitial lung disease Continue oxygen supplementation Chronic diastolic CHF Appear: Appreciated -Usual Lasix resumed Diabetes Continue home long-acting insulin Sliding scale Continue to monitor ELSIE on CKD stage III - management per above Recent right carotid carotid artery procedure Procedure site looks good Vascular surgery consulted.Recommend to follow-up in the office in 6 weeks. History of DVT and PE S/p IVC filter On Eliquis Hypothyroidism On Synthyroid Hypertension On diuretics Will monitor History of depression anxiety On trazodone and Klonopin Restless leg syndrome On ropinirole DVT prophylaxis on Eliquis Disposition Will need acute rehab or [facility] facility Case management on board. Please note the above document was generated using voice recognition software. It may contain grammatical, syntax or spelling errors. Any formal questions or concerns about the content, text or information contained within the body of this dictation should be directly addressed to the provider for clarification Admission and Anticipated Discharge Date Admission Date: September 20, 2023 Subjective Patient seen and examined at bedside. She is sitting up on the chair; not in distress. Review of Systems Review of Systems: All systems reviewed & are unremarkable except as noted in Subjective Physical Exam Physical Exam: Constitutional: Alert, oriented x 3; not in any distress. Morbidly obese. Respiratory: normal respiratory effort, lungs clear to auscultation, no wheeze, rales, rhonchi. Normal insp/exp effort, no accessory muscle use Cardiovascular: RRR, no murmur, no edema Vessels: no JVD or carotid bruit Chest: normal inspection of chest Abdomen: Soft, nontender. Musculoskeletal: Mild tenderness present on palpation of left knee. Skin: no rashes, warm and dry normal turgor Results & Data Results & Data Vital Signs (Past 12 Hours) Vital Signs Temp Pulse Pulse Resp BP Pulse Ox O2 Del Method 09/29/23 11:51 36.5 C 92 H 18 158/82 H 96 Nasal Cannula 09/29/23 08:03 36.7 C 89 18 161/94 H 100 Nasal Cannula 09/29/23 07:30 Nasal Cannula 09/29/23 07:16 93 H 09/29/23 04:00 36.6 C 79 20 99/56 L 97 Nasal Cannula O2 Flow Rate 09/29/23 11:51 3 09/29/23 08:03 3 09/29/23 07:30 3 09/29/23 07:16 09/29/23 04:00 3
[2023-09-29] MEDS: ONDANSETRON 4 MG OD TAB PO PRN (15:30)
[2023-09-29] MEDS: LANTUS PER UNIT CHARGE SC SCH (20:25)
[2023-09-29] MEDS: traZODone HCL 100 MG TAB PO SCH (20:26)
[2023-09-29] MEDS: rOPINIRole HCL 2 MG TABLET PO SCH (20:28)
[2023-09-30] MEDS: oxyCODONE HCL IR 5 MG TAB (IMMEDIATE RELEASE) PO PRN ×2 (01:57→12:09)
[2023-09-30] MEDS: LEVOTHYROXINE SODIUM 50 MCG TABLET PO SCH (05:40)
[2023-09-30] MEDS: LEVOTHYROXINE SODIUM 200 MCG TABLET PO SCH (05:40)
[2023-09-30 06:03] LABS: Basophils # (auto) 0.06 K/uL (0.00-0.20); Basophils % (auto) 0.6 %; Eosinophils # (auto) 0.49 K/uL (0.00-0.50); Eosinophils % (auto) 5.1 %; Hematocrit (blood only) 32.7 % (37.0-47.0); Hemoglobin 9.9 g/dl (12.0-16.0); Immature Granulocytes # (auto) 0.14 K/uL (0.01-0.20); Immature Granulocytes % (auto) 1.5 %; Lymphocytes # (auto) 2.21 K/uL (1.20-3.40); Lymphocytes % (auto) 23.2 %; Mean Corpuscular Hgb Conc 30.3 g/dL (32.0-36.0); Mean Corpuscular Volume 95.9 fL (80.0-100.0); Mean Platelet Volume 9.4 fL (9.4-12.4); Monocytes # (auto) 0.56 K/uL (0.11-0.59); Monocytes % (auto) 5.9 %; Neutrophils # (auto) 6.06 K/uL (1.40-6.50); Neutrophils % (auto) 63.7 %; Platelet Count 452 K/uL (130-400); RDW Coefficient of Variation 14.6 % (11.5-14.5); RDW Standard Deviation 51.4 fL (36.4-46.3); Red Blood Count 3.41 M/uL (4.20-5.40); White Blood Count 9.52 K/ul (4.8-10.8)
[2023-09-30 06:19] LABS: BUN Creatinine Ratio 12.2 (10-20); Calcium 8.7 mg/dl (8.6-10.3); Creatinine Clr Calc Pharmacy 37.7 ml/min; Est GFR (African American) 29.7 ml/min; Est GFR (Non-African American) 25.6 ml/min; Potassium 3.7 mmol/L (3.5-5.1)
[2023-09-30] MEDS: ASPIRIN 81 MG ECTAB PO SCH (07:43)
[2023-09-30] MEDS: ATORVASTATIN 20 MG TAB PO SCH (07:44)
[2023-09-30] MEDS: DOCUSATE SODIUM/SENNA 50/8.6MG TAB PO SCH ×2 (07:44→21:00)
[2023-09-30] MEDS: DULoxetine HCL 60 MG CAP PO SCH (07:44)
[2023-09-30] MEDS: PANTOprazole 40 MG TAB PO SCH (07:44)
[2023-09-30] MEDS: CIPROFLOXACIN 250 MG TAB PO SCH ×2 (07:44→20:22)
[2023-09-30] MEDS: FUROSEMIDE 20 MG TAB PO SCH ×2 (07:44→16:55)
[2023-09-30] MEDS: GABAPENTIN 300 MG CAP PO SCH ×3 (07:45→20:22)
[2023-09-30] MEDS: MAGNESIUM OXIDE 400 MG TAB PO SCH ×2 (07:45→20:23)
[2023-09-30] MEDS: CLOPIDOGREL BISULFATE 75 MG TAB PO SCH (07:45)
[2023-09-30] MEDS: POLYETHYLENE (MIRALAX) 17 GM PACK PO SCH (07:46)
[2023-09-30] MEDS: APIXABAN 5 MG TABLET PO SCH ×2 (07:46→20:22)
[2023-09-30] MEDS: POTASSIUM CHLORIDE CRTAB 20 MEQ TABCR PO SCH ×2 (07:54→16:54)
[2023-09-30] MEDS: clonazePAM 0.5 MG TAB PO SCH ×2 (07:56→20:22)
[2023-09-30] MEDS: INSULIN ASPART PER UNIT CHARGE SC SCH ×5 (08:51→20:47)
[2023-09-30] MEDS: DICLOFENAC SOD 1% GEL 100 GM TUBE EXT SCH ×2 (09:40→20:24)
[2023-09-30] MEDS: ONDANSETRON 4 MG OD TAB PO PRN (09:44)
--- NOTE | 2023-09-30 10:27 | Nephrology Progress Note ---
Date of Service September 30, 2023 Assessment & Plan Admission and Anticipated Discharge Date Admission Date: September 20, 2023 Subjective Assessment & Plan (1) Acute on chronic kidney failure: Plan: Patient with acute kidney injury on CKD likely due to ischemic ATN in setting of Klebsiella bacteremia. Creatinine of 1.8 yesterday and today. Peak creatinine 2.4. Baseline creatinine around 1.7-1.8. Electrolytes are stable. NEPHROLOGY D/C RECOMMENDATIONS bmp at pcp f/u appt w/in one week after rehab d/c bmp weekly while at rehab [facility] d/c appt w/ any [facility] face hardener 3-4 wks after d/c w/ BMP drawn up to 5 days before OV and to be ordered by neph RN Diuretics and K same as before.Creat very slowly rising . for now no need to change any lasix dose but may need adjustment in the coming days as outpt (2) Sepsis: Plan: Patient with sepsis due to Klebsiella pneumonia UTI and bacteremia. She is getting ceftriaxone per primary team dosed for current eGFR. (3) Acute on chronic diastolic heart failure: Plan: Patient with chronic CHF. Continue Lasix 60 bid as above. She is diuresing well. Monitor intake output. Subjective States her breathing and exertional dyspnea are at baseline. Feels stronger now. making urine . on 3L 02nc at home and here. waiting for ? rehab placement Review of Systems Review of Systems: All systems reviewed & are unremarkable except as noted in Subjective Physical Exam Constitutional: well developed and well nourished. obese++ Eyes: EOM intact bilaterally ENMT: Ears: no external ear abnormality Nose: no external nose abnormality Mouth: + dry oral mucous membranes Neck: no nuchal rigidity Respiratory: normal respiratory effort Auscultation: + diminished lung sounds Gastrointestinal (Abdomen): Inspection/Auscultation: normal bowel sounds Percussion/Palpation: abdomen soft; abdomen nontender Musculoskeletal: Extremities: 1+ edema Skin: no rashes, warm and dry Neurologic: milan, fluent speech, no tremor Results & Data Vital Signs (Past 12 Hours) Vital Signs Temp Pulse Pulse Pulse Resp BP Pulse Ox 09/30/23 09:01 91 H 09/30/23 07:57 36.4 C L 88 18 100/66 98 09/30/23 07:15 09/30/23 04:00 36.6 C 90 20 130/78 96 09/30/23 00:00 36.8 C 84 18 107/67 97 O2 Del Method O2 Flow Rate 09/30/23 09:01 09/30/23 07:57 Nasal Cannula 3 09/30/23 07:15 Nasal Cannula 3 09/30/23 04:00 Nasal Cannula 3 09/30/23 00:00 Nasal Cannula 3
--- NOTE | 2023-09-30 12:34 | Hospitalist Progress Note ---
Date of Service September 30, 2023 Assessment & Plan (1) Illness: Plan: 68-year-old female with past medical history significant for type 2 diabetes, chronic hypoxic respiratory failure on 3 L oxygen, hyperlipidemia, postsurgical hypothyroidism, hyperparathyroidism secondary to renal disease, chronic kidney disease stage IIIb, interstitial lung disease, obstructive sleep apnea on CPAP, chronic diastolic CHF, history of DVT and PE s/p IVC filter, history of heparin- induced thrombocytopenia, venous insufficiency, hypertension, right carotid artery stenosis, morbid obesity, GERD, fibromyalgia, restless leg syndrome, osteoarthritis, lumbar radiculopathy, depression, statin intolerance, abnormality of gait ambulates with walker, anxiety, presents for flu like symptoms and found to have UTI KLEBSIELLA UTI, PYELONEPHRITIS BACTEREMIA Patient presented with flulike symptoms. urine culture and blood culture - positive for Klebsiella repeat blood cultx no growth till date Infectious disease recommends ciprofloxacin for total of 14 days. ACUTE KIDNEY INJURY likely ATN from Bacteremia Nephro consulted for comanagement Creatinine around baseline. Resume usual Lasix 60 mg p.o. twice daily Obstructive sleep apnea CPAP nightly Chronic respiratory failure History of interstitial lung disease Continue oxygen supplementation Chronic diastolic CHF Appear: Appreciated -Usual home dose of Lasix resumed Type II diabetes Continue home long-acting insulin Sliding scale Continue to monitor ELSIE on CKD stage III - management per above Recent right carotid carotid artery procedure Procedure site looks good Vascular surgery consulted.Recommend to follow-up in the office in 6 weeks. History of DVT and PE S/p IVC filter On Eliquis Hypothyroidism On Synthyroid Hypertension On diuretics Will monitor History of depression anxiety On trazodone and Klonopin Restless leg syndrome On ropinirole DVT prophylaxis on Eliquis Disposition As per ; patient denied acute rehab. Possible discharge home with home health tomorrow if patient is not approved for SNF. Please note the above document was generated using voice recognition software. It may contain grammatical, syntax or spelling errors. Any formal questions or concerns about the content, text or information contained within the body of this dictation should be directly addressed to the provider for clarification Admission and Anticipated Discharge Date Admission Date: September 20, 2023 Subjective Seen and examined at bedside. She is lying in the bed comfortably; not in distress. She denies fever, chills, chest pain, shortness of breath or abdominal pain. Review of Systems Review of Systems: All systems reviewed & are unremarkable except as noted in Subjective Physical Exam Physical Exam: Constitutional: Alert, oriented x 3; not in any distress. Morbidly obese. Respiratory: normal respiratory effort, lungs clear to auscultation, no wheeze, rales, rhonchi. Normal insp/exp effort, no accessory muscle use Cardiovascular: RRR, no murmur, no edema Vessels: no JVD or carotid bruit Chest: normal inspection of chest Abdomen: Soft, nontender. Musculoskeletal: Mild tenderness present on palpation of left knee. Skin: no rashes, warm and dry normal turgor Results & Data Results & Data Vital Signs (Past 12 Hours) Vital Signs Temp Pulse Pulse Pulse Resp BP Pulse Ox 09/30/23 12:03 36.6 C 88 19 132/83 99 09/30/23 09:01 91 H 09/30/23 07:57 36.4 C L 88 18 100/66 98 09/30/23 07:15 09/30/23 04:00 36.6 C 90 20 130/78 96 O2 Del Method O2 Flow Rate 09/30/23 12:03 Nasal Cannula 3 09/30/23 09:01 09/30/23 07:57 Nasal Cannula 3 09/30/23 07:15 Nasal Cannula 3 09/30/23 04:00 Nasal Cannula 3
[2023-09-30] MEDS: rOPINIRole HCL 2 MG TABLET PO SCH (20:23)
[2023-09-30] MEDS: traZODone HCL 100 MG TAB PO SCH (20:23)
[2023-09-30] MEDS: LANTUS PER UNIT CHARGE SC SCH (20:43)
[2023-10-01] MEDS: traMADol HCL 50 MG TABLET PO PRN (01:26)
[2023-10-01] MEDS: LEVOTHYROXINE SODIUM 50 MCG TABLET PO SCH (06:12)
[2023-10-01] MEDS: LEVOTHYROXINE SODIUM 200 MCG TABLET PO SCH (06:12)
[2023-10-01 07:14] LABS: Basophils # (auto) 0.09 K/uL (0.00-0.20); Basophils % (auto) 0.9 %; Eosinophils # (auto) 0.57 K/uL (0.00-0.50); Eosinophils % (auto) 5.6 %; Hematocrit (blood only) 31.1 % (37.0-47.0); Hemoglobin 9.6 g/dl (12.0-16.0); Immature Granulocytes # (auto) 0.12 K/uL (0.01-0.20); Immature Granulocytes % (auto) 1.2 %; Lymphocytes # (auto) 2.34 K/uL (1.20-3.40); Lymphocytes % (auto) 22.8 %; Mean Corpuscular Hgb Conc 30.9 g/dL (32.0-36.0); Mean Platelet Volume 9.6 fL (9.4-12.4); Monocytes # (auto) 0.67 K/uL (0.11-0.59); Monocytes % (auto) 6.5 %; Neutrophils # (auto) 6.46 K/uL (1.40-6.50); Platelet Count 473 K/uL (130-400); RDW Coefficient of Variation 14.4 % (11.5-14.5); RDW Standard Deviation 49.7 fL (36.4-46.3); Red Blood Count 3.31 M/uL (4.20-5.40); White Blood Count 10.25 K/ul (4.8-10.8)
[2023-10-01 07:32] LABS: BUN Creatinine Ratio 13.6 (10-20); Calcium 9.1 mg/dl (8.6-10.3); Creatinine Clr Calc Pharmacy 40.2 ml/min; Est GFR (African American) 32.1 ml/min; Est GFR (Non-African American) 27.7 ml/min; Potassium 3.5 mmol/L (3.5-5.1)
[2023-10-01] MEDS: POLYETHYLENE (MIRALAX) 17 GM PACK PO SCH (08:12)
[2023-10-01] MEDS: ASPIRIN 81 MG ECTAB PO SCH (08:14)
[2023-10-01] MEDS: clonazePAM 0.5 MG TAB PO SCH ×2 (08:14→19:42)
[2023-10-01] MEDS: PANTOprazole 40 MG TAB PO SCH (08:15)
[2023-10-01] MEDS: ATORVASTATIN 20 MG TAB PO SCH (08:15)
[2023-10-01] MEDS: MAGNESIUM OXIDE 400 MG TAB PO SCH ×2 (08:15→19:37)
[2023-10-01] MEDS: CLOPIDOGREL BISULFATE 75 MG TAB PO SCH (08:16)
[2023-10-01] MEDS: DULoxetine HCL 60 MG CAP PO SCH (08:16)
[2023-10-01] MEDS: GABAPENTIN 300 MG CAP PO SCH ×3 (08:17→19:37)
[2023-10-01] MEDS: DOCUSATE SODIUM/SENNA 50/8.6MG TAB PO SCH ×2 (08:17→19:42)
[2023-10-01] MEDS: FUROSEMIDE 20 MG TAB PO SCH ×2 (08:18→16:22)
[2023-10-01] MEDS: POTASSIUM CHLORIDE CRTAB 20 MEQ TABCR PO SCH ×2 (08:22→16:22)
[2023-10-01] MEDS ORDERED: CIPROFLOXACIN 500 MG TAB PO SCH (09:00)
[2023-10-01] MEDS: CIPROFLOXACIN 250 MG TAB PO SCH ×2 (09:56→21:23)
[2023-10-01] MEDS: APIXABAN 5 MG TABLET PO SCH ×2 (09:56→19:38)
[2023-10-01] MEDS: DICLOFENAC SOD 1% GEL 100 GM TUBE EXT SCH ×2 (09:57→19:37)
[2023-10-01] MEDS: oxyCODONE HCL IR 5 MG TAB (IMMEDIATE RELEASE) PO PRN (10:02)
[2023-10-01] MEDS: INSULIN ASPART PER UNIT CHARGE SC SCH ×4 (10:03→20:52)
[2023-10-01] MEDS ORDERED: HYDROCORTISONE 1% OINT 30 GM TUBE EXT PRN (11:59)
--- NOTE | 2023-10-01 13:50 | Hospitalist Progress Note ---
Date of Service October 01, 2023 Assessment & Plan (1) Illness: Plan: 68-year-old female with past medical history significant for type 2 diabetes, chronic hypoxic respiratory failure on 3 L oxygen, hyperlipidemia, postsurgical hypothyroidism, hyperparathyroidism secondary to renal disease, chronic kidney disease stage IIIb, interstitial lung disease, obstructive sleep apnea on CPAP, chronic diastolic CHF, history of DVT and PE s/p IVC filter, history of heparin- induced thrombocytopenia, venous insufficiency, hypertension, right carotid artery stenosis, morbid obesity, GERD, fibromyalgia, restless leg syndrome, osteoarthritis, lumbar radiculopathy, depression, statin intolerance, abnormality of gait ambulates with walker, anxiety, presents for flu like symptoms and found to have UTI Sepsis POA KLEBSIELLA UTI, PYELONEPHRITIS BACTEREMIA Patient presented with flulike symptoms. urine culture and blood culture - positive for Klebsiella repeat blood cultx no growth till date Infectious disease recommends ciprofloxacin for total of 14 days. End date is October 03, 2023. ACUTE KIDNEY INJURY likely ATN from Bacteremia Nephro consulted for comanagement Creatinine around baseline. Resume usual Lasix 60 mg p.o. twice daily Obstructive sleep apnea CPAP nightly Chronic respiratory failure History of interstitial lung disease Continue oxygen supplementation Chronic diastolic CHF Appear: Appreciated -Usual home dose of Lasix resumed Type II diabetes Continue home long-acting insulin Sliding scale Continue to monitor ELSIE on CKD stage III - management per above Recent right carotid carotid artery procedure Procedure site looks good Vascular surgery consulted.Recommend to follow-up in the office in 6 weeks. History of DVT and PE S/p IVC filter On Eliquis Hypothyroidism On Synthyroid Hypertension On diuretics Will monitor History of depression anxiety On trazodone and Klonopin Restless leg syndrome On ropinirole DVT prophylaxis on Eliquis Disposition As per ; patient denied acute rehab. Potential discharge in a.m. Please note the above document was generated using voice recognition software. It may contain grammatical, syntax or spelling errors. Any formal questions or concerns about the content, text or information contained within the body of this dictation should be directly addressed to the provider for clarification Admission and Anticipated Discharge Date Admission Date: September 20, 2023 Subjective Patient seen and examined at bedside. Comfortable; not in distress. Denies fever, chills, chest pain, shortness of breath, abdominal pain or urinary symptoms. No significant overnight events Review of Systems Review of Systems: All systems reviewed & are unremarkable except as noted in Subjective Physical Exam Physical Exam: Constitutional: Alert, oriented x 3; not in any distress. Morbidly obese. Respiratory: normal respiratory effort, lungs clear to auscultation, no wheeze, rales, rhonchi. Normal insp/exp effort, no accessory muscle use Cardiovascular: RRR, no murmur, no edema Vessels: no JVD or carotid bruit Chest: normal inspection of chest Abdomen: Soft, nontender. Musculoskeletal: Mild tenderness present on palpation of left knee. Skin: no rashes, warm and dry normal turgor Results & Data Results & Data Vital Signs (Past 12 Hours) Vital Signs Temp Pulse Pulse Pulse Resp BP BP 10/01/23 11:45 36.6 C 85 18 94/62 L 10/01/23 07:49 36.7 C 85 20 138/78 10/01/23 07:43 10/01/23 07:12 98 H 10/01/23 04:00 36.8 C 87 20 120/62 Pulse Ox O2 Del Method O2 Flow Rate 10/01/23 11:45 99 Room Air 3 10/01/23 07:49 98 Nasal Cannula 3 10/01/23 07:43 Nasal Cannula 2 10/01/23 07:12 10/01/23 04:00 96 Nasal Cannula 3
[2023-10-01] MEDS: traZODone HCL 100 MG TAB PO SCH (19:37)
[2023-10-01] MEDS: rOPINIRole HCL 2 MG TABLET PO SCH (19:37)
[2023-10-01] MEDS: LANTUS PER UNIT CHARGE SC SCH (20:52)
[2023-10-02] MEDS: traMADol HCL 50 MG TABLET PO PRN (01:41)
[2023-10-02] MEDS: LEVOTHYROXINE SODIUM 200 MCG TABLET PO SCH (05:26)
[2023-10-02] MEDS: LEVOTHYROXINE SODIUM 50 MCG TABLET PO SCH (05:26)
[2023-10-02 05:57] LABS: Basophils # (auto) 0.07 K/uL (0.00-0.20); Basophils % (auto) 0.6 %; Eosinophils % (auto) 5.6 %; Hematocrit (blood only) 33.4 % (37.0-47.0); Hemoglobin 9.9 g/dl (12.0-16.0); Immature Granulocytes # (auto) 0.09 K/uL (0.01-0.20); Immature Granulocytes % (auto) 0.8 %; Lymphocytes % (auto) 20.4 %; Mean Corpuscular Hemoglobin 28.4 pg (25.0-34.0); Mean Corpuscular Hgb Conc 29.6 g/dL (32.0-36.0); Mean Platelet Volume 9.5 fL (9.4-12.4); Monocytes # (auto) 0.59 K/uL (0.11-0.59); Monocytes % (auto) 5.5 %; Neutrophils # (auto) 7.22 K/uL (1.40-6.50); Neutrophils % (auto) 67.1 %; Platelet Count 455 K/uL (130-400); RDW Coefficient of Variation 14.3 % (11.5-14.5); RDW Standard Deviation 50.4 fL (36.4-46.3); Red Blood Count 3.48 M/uL (4.20-5.40); White Blood Count 10.77 K/ul (4.8-10.8)
[2023-10-02 06:09] LABS: BUN Creatinine Ratio 16.7 (10-20); Calcium 8.9 mg/dl (8.6-10.3); Creatinine Clr Calc Pharmacy 49.3 ml/min; Est GFR (African American) 41.1 ml/min; Est GFR (Non-African American) 35.4 ml/min; Potassium 3.6 mmol/L (3.5-5.1)
[2023-10-02] MEDS: DOCUSATE SODIUM/SENNA 50/8.6MG TAB PO SCH (08:43)
[2023-10-02] MEDS: ATORVASTATIN 20 MG TAB PO SCH (08:44)
[2023-10-02] MEDS: MAGNESIUM OXIDE 400 MG TAB PO SCH (08:44)
[2023-10-02] MEDS: APIXABAN 5 MG TABLET PO SCH (08:44)
[2023-10-02] MEDS: CLOPIDOGREL BISULFATE 75 MG TAB PO SCH (08:44)
[2023-10-02] MEDS: CIPROFLOXACIN 250 MG TAB PO SCH (08:44)
[2023-10-02] MEDS: GABAPENTIN 300 MG CAP PO SCH ×2 (08:44→13:08)
[2023-10-02] MEDS: ASPIRIN 81 MG ECTAB PO SCH (08:45)
[2023-10-02] MEDS: PANTOprazole 40 MG TAB PO SCH (08:45)
[2023-10-02] MEDS: DULoxetine HCL 60 MG CAP PO SCH (08:45)
[2023-10-02] MEDS: POLYETHYLENE (MIRALAX) 17 GM PACK PO SCH (08:45)
[2023-10-02] MEDS: FUROSEMIDE 20 MG TAB PO SCH (08:49)
[2023-10-02] MEDS: POTASSIUM CHLORIDE CRTAB 20 MEQ TABCR PO SCH (08:55)
[2023-10-02] MEDS: clonazePAM 0.5 MG TAB PO SCH (08:55)
[2023-10-02] MEDS: INSULIN ASPART PER UNIT CHARGE SC SCH ×2 (08:56→13:08)
[2023-10-02] MEDS: DICLOFENAC SOD 1% GEL 100 GM TUBE EXT SCH (10:19)
--- NOTE | 2023-10-02 13:12 | Discharge Summary ---
Date of Service October 02, 2023 Admission HPI Per Admitting Provider 68-year-old female with past medical history significant for type 2 diabetes, chronic hypoxic respiratory failure on 3 L oxygen, hyperlipidemia, postsurgical hypothyroidism, hyperparathyroidism secondary to renal disease, chronic kidney disease stage IIIb, interstitial lung disease, obstructive sleep apnea on CPAP, chronic diastolic CHF, history of DVT and PE s/p IVC filter, history of heparin- induced thrombocytopenia, venous insufficiency, hypertension, right carotid artery stenosis, morbid obesity, GERD, fibromyalgia, restless leg syndrome, osteoarthritis, lumbar radiculopathy, depression, statin intolerance, abnormality of gait ambulates with walker, anxiety, presents for flu like symptoms and found to have UTI. Patient having fevers, body aches, nausea, abdominal discomfort, weakness and not feeling well. Currently sleeping. Denies any headache. No blurred visions. No runny nose or sore throat. No headaches. No chest pain or shortness of breath currently. Normal bowel and bladder movements. Hemodynamically stable. Past medical history. As mentioned above Past surgical history. Right total knee arthroplasty. Colonoscopy. Injection of lumbosacral spine. Left knee arthroscopy. Gastrotomy tube placement. Thyroidectomy. Cholecystectomy. Repair of recurrent incisional hernia. Revision of colostomy. Injection of sacroiliac joint. Perforation right colon with colostomy. Right Transcath stent carotid artery with embolic protection on September 06, 2023. Green filter placement through right femoral on July 2009 Social history. Quit smoking 1996. Smoked 1 pack at 15 years. Alcohol rarely. No drug use. Family history. Brother has COPD. Brother from heart disorder. Father had lung cancer. Mother had liver cancer. Paternal grandfather had bone cancer. Admission Exam Per Admitting Provider General- Not in distress Head- atraumatic Eyes- PERRL. ENT- oropharynx clear Neck- supple, no JVD. Lungs- clear to auscultation no wheezing or crackles. Heart- regular rhythm; no murmur, no gallop.Right carotid procedure site no erythema seen. Abdomen- normal bowel sounds, soft, nontender, no distension. Extremities- trace pretibial edema, no erythema seen. Neuro- alert, oriented x 3; PERRL, no facial palsy; no dysarthria; moves extremities. Principal Diagnosis Sepsis POA KLEBSIELLA UTI, PYELONEPHRITIS BACTEREMIA Discharge Exam Constitutional: Alert, oriented x 3; not in any distress. Morbidly obese. Respiratory: normal respiratory effort, lungs clear to auscultation, no wheeze, rales, rhonchi. Normal insp/exp effort, no accessory muscle use Cardiovascular: RRR, no murmur, no edema Vessels: no JVD or carotid bruit Chest: normal inspection of chest Abdomen: Soft, nontender. Musculoskeletal: Mild tenderness present on palpation of left knee. Skin: no rashes, warm and dry normal turgor Discharge Data Allergies Allergy/AdvReac Type Severity Reaction Status Date / Time morphine Allergy Severe Swelling, Verified 09/06/23 06:26 "Violent reaction- almost " dapagliflozin [From Farxiga] Allergy Intermediate Yeast Verified 09/06/23 06:26 infections tetanus toxoid, adsorbed Allergy Intermediate Passed Verified 09/06/23 06:26 out, "got sick" as child bupropion [From Wellbutrin] AdvReac Intermediate Recurrent Verified 09/06/23 06:26 falls as per patient codeine AdvReac Intermediate Hallucinati Verified 09/06/23 06:26 ons empagliflozin AdvReac Intermediate Yeast Verified 09/06/23 06:26 [From Jardiance] infections heparin AdvReac Intermediate HIT, Verified 09/06/23 06:26 "Fluid in lungs" hydrocodone [From Vicodin] AdvReac Intermediate Drowsy Verified 09/06/23 06:26 Consultations 09/20/23 01:34 ED Decision to Admit Stat 09/20/23 14:21 Consult Vascular Surgery Routine 09/21/23 18:57 Consult Nephrology Routine 09/22/23 09:40 Consult Infectious Diseases Routine Ordered Studies 09/20/23 00:41 CT abd pelvis wo con Stat Hospital Course (1) Illness: 68-year-old female with past medical history significant for type 2 diabetes, chronic hypoxic respiratory failure on 3 L oxygen, hyperlipidemia, postsurgical hypothyroidism, hyperparathyroidism secondary to renal disease, chronic kidney disease stage IIIb, interstitial lung disease, obstructive sleep apnea on CPAP, chronic diastolic CHF, history of DVT and PE s/p IVC filter, history of heparin- induced thrombocytopenia, venous insufficiency, hypertension, right carotid artery stenosis, morbid obesity, GERD, fibromyalgia, restless leg syndrome, osteoarthritis, lumbar radiculopathy, depression, statin intolerance, abnormality of gait ambulates with walker, anxiety, presents for flu like symptoms and found to have UTI Sepsis POA KLEBSIELLA UTI, PYELONEPHRITIS BACTEREMIA Patient presented with flulike symptoms. urine culture and blood culture - positive for Klebsiella repeat blood cultx no growth till date Infectious disease recommends ciprofloxacin for total of 14 days. End date is October 03, 2023. At discharge, patient was afebrile, hemodynamically stable and saturating at 3 L of nasal cannula which is her baseline. ACUTE KIDNEY INJURY likely ATN from Bacteremia Nephro consulted for comanagement Creatinine around baseline. Resume usual Lasix 60 mg p.o. twice daily No other medication changes were done during the discharge. Patient to follow-up with PCP after discharge. Please note the above document was generated using voice recognition software. It may contain grammatical, syntax or spelling errors. Any formal questions or concerns about the content, text or information contained within the body of this dictation should be directly addressed to the provider for clarification Total Time Total Time Spent Total Time Spent (In Minutes): 35 Total Time Includes: Examination of the Patient, Discharge Planning, Medication Reconciliation, Communication With Other Providers and Other Discharge Plan Discharge Items Patient Disposition: Home - Self-Care Reason For Visit: WEAKNESS, UTI Discharge Diagnosis: Sepsis Klebsiella UTI Condition on Discharge: Good Activity: Resume your previous activity Non-emergency contact: Primary Care Provider Call non-emergency contact if: you have any medication questions and your symptoms worsen Follow-up/Referrals: Galdino Andujar DO [Primary Care Provider] - Addtl Attending Provider Instructions: You were admitted to the hospital due to sepsis. The cause for the sepsis due to urinary tract infection. You are prescribed ciprofloxacin 500 mg to be taken for 2 more days. An appointment will be set up with your primary care doctor for sometime next week. Please go to that appointment. Pending Studies at Discharge: No Stand-Alone Forms: [employer], Smoking Cessation Medications and DC Order Prescriptions: New ciprofloxacin HCl 500 mg tablet 500 mg PO BID 2 Days Qty: 4 0RF Continued atorvastatin 20 mg tablet 20 mg PO DAILY clonazepam 0.5 mg tablet 0.5 mg PO BID sennosides-docusate sodium [Senna-Time S] 8.6-50 mg tablet 1 tab PO BID clopidogrel 75 mg tablet 75 mg PO DAILY aspirin 81 mg tablet,delayed release (DR/EC) 81 mg PO DAILY tramadol 50 mg tablet 50 mg PO TID PRN (Reason: Pain) potassium chloride 20 mEq tablet,ER particles/crystals 20 meq PO BID magnesium oxide 400 mg (241.3 mg magnesium) tablet 400 mg PO BID trazodone 100 mg tablet 100 mg PO HS baclofen 10 mg tablet 10 mg PO BID PRN (Reason: Muscle Spasm) levothyroxine 50 mcg tablet 50 mcg PO DAILY ropinirole 2 mg tablet 2 mg PO HS gabapentin 300 mg capsule 600 mg PO TID omeprazole 20 mg capsule,delayed release(DR/EC) 20 mg PO DAILY levothyroxine 200 mcg tablet 200 mcg PO DAILY Rx Instructions: Total 250mcg po daily oxycodone 5 mg tablet 5 mg PO Q6H PRN (Reason: Pain) duloxetine 60 mg capsule,delayed release(DR/EC) 60 mg PO DAILY Eliquis 5 mg tablet 5 mg PO BID insulin degludec [Tresiba FlexTouch U-100] 100 unit/mL (3 mL) insulin pen 50 unit SUBCUT HS Mounjaro 5 mg/0.5 mL pen injector 5 mg SUBCUT WK furosemide 40 mg tablet 60 mg PO BID insulin aspart U-100 [Novolog FlexPen U-100 Insulin] 100 unit/mL (3 mL) insulin pen 8 unit SUBCUT UD Rx Instructions: 8units with breakfast and lunch and 10units with dinner Discharge Orders: Discharge Order (Routine); Ordered 10/02/23 Ordered By: Main Carmichael Admission Data Admit Date/Time: 09/20/23 05:28 Attending Provider: Main Carmichael Admit Provider: Abhilash Montes Primary Care Provider: Galdino Andujar Other Providers: Abhilash Montes; Mirza Tang; Gia White Andrea F.; Carmelo Rodriguez; Henrry Bernal; Zachery Duncan I.; Jorge Rose II; Clover Wang; Michael Rodas; Rubén Krishnan; Kathie Mccarthy; [facility] Other Interventions: Discharge Summary Assessment (RN) Last Done: 10/02/23 12:37
== END 2023-10-02 13:34 | disposition home health service (06) | DRG 871 ==
LOC: ED 23:08 → SUATTDRO 09-20 05:28 → EDINP 09-20 05:28 → 2N 09-20 06:06

== ENCOUNTER 2023-10-24 13:37 | Inpatient (IN) ==
[2023-10-24 14:51] LABS: Basophils # (auto) 0.05 K/uL (0.00-0.20); Basophils % (auto) 0.4 %; Eosinophils # (auto) 0.21 K/uL (0.00-0.50); Eosinophils % (auto) 1.5 %; Hematocrit (blood only) 36.4 % (37.0-47.0); Hemoglobin 10.9 g/dl (12.0-16.0); Immature Granulocytes # (auto) 0.07 K/uL (0.01-0.20); Immature Granulocytes % (auto) 0.5 %; Lymphocytes # (auto) 1.54 K/uL (1.20-3.40); Lymphocytes % (auto) 10.9 %; Mean Corpuscular Hemoglobin 27.1 pg (25.0-34.0); Mean Corpuscular Hgb Conc 29.9 g/dL (32.0-36.0); Mean Corpuscular Volume 90.5 fL (80.0-100.0); Mean Platelet Volume 10.3 fL (9.4-12.4); Monocytes % (auto) 7.8 %; Neutrophils # (auto) 11.14 K/uL (1.40-6.50); Neutrophils % (auto) 78.9 %; Platelet Count 349 K/uL (130-400); RDW Coefficient of Variation 14.2 % (11.5-14.5); RDW Standard Deviation 47.2 fL (36.4-46.3); Red Blood Count 4.02 M/uL (4.20-5.40); White Blood Count 14.11 K/ul (4.8-10.8)
--- NOTE | 2023-10-24 15:01 | Electrocardiogram Report ---
Test Reason : Blood Pressure : / mmHG Vent. Rate : 096 BPM Atrial Rate : 096 BPM P-R Int : 148 ms QRS Dur : 074 ms QT Int : 344 ms P-R-T Axes : -01 015 038 degrees QTc Int : 434 ms Normal sinus rhythm Normal ECG When compared with ECG of 19-SEP-2023 23:11, No significant change was found Confirmed by Bright David ([id number]) on 10/24/2023 3:00:44 PM Referred By: Confirmed By:Bright David
[2023-10-24 15:06] LABS: Alanine Aminotransferase 9 U/L (7-52); Albumin Globulin Ratio 0.9 (0.9-2); Albumin Level 3.5 gm/dl (3.4-5.0); Alkaline Phosphatase 97 U/L (34-104); Anion Gap 7 (3-11); Aspartate Aminotransferase 13 U/L (13-39); BUN Creatinine Ratio 16.4 (10-20); Bilirubin,Total 0.6 mg/dl (0.2-1.0); Blood Urea Nitrogen 30 mg/dl (6-23); Calcium 9.4 mg/dl (8.6-10.3); Carbon Dioxide 32 mmol/L (21-32); Chloride 96 mmol/L (98-107); Est GFR (African American) 32.3 ml/min; Est GFR (Non-African American) 27.9 ml/min; Glucose 188 mg/dl (70-99(Fasting)); Potassium 4.3 mmol/L (3.5-5.1); Sodium 135 mmol/L (136-145); Total Protein 7.5 gm/dl (6.0-8.3)
[2023-10-24 15:37] LABS: Influenza A virus by PCR Negative (Neg); Influenza B virus by PCR Negative (Neg); RSV by PCR Negative (Neg); SARS CoV2 RNA(COVID-19) Ceph NEGATIVE (Negative)
[2023-10-24] MEDS ORDERED: PIPERACILLIN/TAZOBACTAM 4.5 GM/100 ML BAG IV ONE (16:18)
--- NOTE | 2023-10-24 16:45 | Emergency Department Note ---
Impression & Plan ELSIE (acute kidney injury), Weakness, Diarrhea, Hydronephrosis ED Provider Note NAME: GEENA MAC AGE: 68 SEX: F : 1955 ARRIVES VIA: Ambulance INFORMANT: Patient, ED PROVIDER(S): Sathish Lee MD CHIEF COMPLAINT: Abdominal pain, diarrhea MEDICAL DECISION MAKING: Patient presents due to concern for abdominal pain associated diarrhea. IV was established and blood work was obtained. CT abdomen pelvis was ordered given the patient's diffuse abdominal pain. Patient's blood work shows a white count of 14 with anemia chronic and stable hemoglobin of 10.9. Platelet count is unremarkable. Kidney function slightly worse from comparison of 1.5 today is 1.8. Procalcitonin 1.1. Patient's urinalysis was pending COVID flu and RSV negative. CT abdomen pelvis does not show any significant changes. Pro-Freddie lactate cultures ordered in addition to empiric Zosyn given the patient's prior history of Klebsiella bacteremia. 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 Patient has had prior associated similar findings on prior CT noted during the patient's most recent admission August into September. Per review of the records it does not appear as though urology saw the patient at that time. Patient does not have any flank pain or dysuria. Patient did have stool studies ordered and I did speak with the on-call hospitalist TATIANA Cedeno the patient was admitted by Dr. Eli. Discussion w/ other healthcare providers: TATIANA Cedneo and Dr. Eli inpatient medicine service [facility] Prior /Outside records reviewed: I reviewed a discharge summary from October 02, 2023. The patient had been admitted at that time due to concern for flulike symptoms and found to have a UTI. Patient ended up having Klebsiella UTI pyelonephritis and bacteremia. Patient was discharged on ciprofloxacin. Differential diagnosis: Infection, dehydration, metabolic abnormality, hypo/hyperglycemia, electrolyte imbalance, anemia, UTI, pneumonia, thyroid dysfunction among others were considered. Diagnostics, as interpreted by me: ECG: Normal sinus rhythm, rate of 96, normal intervals, normal axis no ST elevations. Cardiac monitoring: An order was placed for continuous cardiac monitoring. The monitor shows a rate of with rhythm. Patient was placed on pulse oximetry Medical decision rules: None Imaging studies: I informally interpreted the patient's CT abdomen pelvis which does show right- sided hydronephrosis with formal report to follow. HPI: Patient presents due to concern for abdominal pain and diarrhea. The patient is also had associated weakness and fatigue. The patient relates that she has had diarrhea about 3-4 times daily for the last 3 weeks. The patient did have an admission last month for "blood infection." Patient denies any chest pains or shortness of breath. The patient does wear chronic oxygen at all times and does have a known history of CHF. Per EMS the patient had a temperature of 100.3. Home health reported the patient did have softer blood pressures at 100/60. The patient has not had significant appetite and poor p.o. intake. Patient denies any blood in the stools. The patient does complain of lower abdominal pain. Patient states that she was concerned as she has had a prior bowel surgery for perforation. PAST MEDICAL HISTORY: See Below PAST SURGICAL HISTORY: See Below SOCIAL HISTORY: See Below HOME MEDICATIONS: See Below ALLERGIES: See Below VITALS: See Below PHYSICAL EXAMINATION: GENERAL: NAD, non-toxic. Nasal cannula in place. EYE EXAM: Normal conjunctiva. PERRL, no anisocoria and EOM's grossly intact w/o pain. OROPHARYNX: Moist mucus membranes, grossly normal dentition. NECK: Trachea midline, no stridor. Supple, no nuchal rigidity, no adenopathy, non-tender. No signs of meningismus. FROM of the neck with good chin to chest and neck extension. LUNGS: Clear to auscultation. Normal chest wall mechanics. HEART: NSR, no MRG. ABDOMEN: Abdomen soft, diffuse tenderness noted most prominent in suprapubic area lower abdomen,, no masses, no rebound or guarding. BACK: No CVA TTP. SKIN: No rashes and no bruising. No obvious intertriginous rash or redness noted to the abdomen or groin area UPPER EXTREMITIES: Upper extremities are grossly normal. LOWER EXTREMITIES: Grossly normal, no edema. NEURO EXAM: A&O x3, cranial nerves II-XII grossly intact, normal speech, moves all 4 extremities. Past Med/Surg History Medical History Acute pyelonephritis Hypomagnesemia Mitral valve stenosis Echo 06/2023: Borderline mild mitral stenosis secondary to severe mitral annular calcification Chronic hypoxemic respiratory failure Cataract, bilateral Lumbago with sciatica Lower extremity pain, bilateral Neuropathy feet On home oxygen therapy 3L continuous CHF (congestive heart failure) Follows with Dr. Woodall Subclavian artery stenosis Cerebrovascular duplex study 06/2023: Retrograde flow in the right vertebral artery. 50-69% proximal right subclavian artery stenosis. Antegrade flow in the left vertebral artery. Normal flow in the left subclavian artery. Carotid stenosis, right Cerebrovascular duplex 07/11/23: 80-99% R ICA stenosis. No hemodynamically significant stenosis in the LICA. Diabetes mellitus, type II CKD (chronic kidney disease), stage III Follows with [facility] ELISSA on CPAP CPAP + 3L O2 (O2 is continuous) HTN (hypertension) HLD (hyperlipidemia) Morbid obesity HIT (heparin-induced thrombocytopenia) 2009, [facility] then life flight to [place] > "resolved" Depression with anxiety Hypothyroidism History of pulmonary embolism 2008 s/p zoraida filter GERD (gastroesophageal reflux disease) RLS (restless legs syndrome) History of DVT (deep vein thrombosis) 2008 (during ICU [place] admission/PNA) Presence of IVC filter 2008 Fibromyalgia Surgical History Family history of reaction to anesthesia Brother/niece- PONV Brother- "wakes up violent" History of colostomy reversal History of tooth extraction History of arthroscopy left ankle History of incisional hernia repair Nausea and vomiting after administration of anesthetic agent History of colonoscopy History of cholecystectomy History of total right knee replacement History of tracheostomy 06/2009 (per [facility] records), secondary to acute respiratory failure in setting of PNA, reversed a few months later History of thyroidectomy, total 2010 History of colon resection secondary to R colon perforation, resected treated with colostomy and eventual reversal in 2008, Dr. Lerma Family History Father , age 74 Lung cancer Mother , age 45 Cirrhosis Social History Smoking Status: Former smoker Tobacco Type: Cigarettes Cigarettes Per Day: 1996; Smoking End Date: 1996; Second Hand Exposure: No; Do You Dip or Chew Tobacco: No; Hx Alcohol Use: No Hx Substance Use: No Preferred Language: Bermudian Communication Ability: Effective School Health Assistant Required: No Beliefs That Will Affect Care: None marital status: Single Current Living Situation: Alone Current Living Situation Comment: Lives by self in apartment How many Children do You have: 0 Other Information That Helps Us Care for You: No Feels Safe at Home: Yes Safety Concerns: Feels Safe At This Time Assistive Devices: Oxygen - Continuous and Walker Allergies Allergies Allergy/AdvReac Type Severity Reaction Status Date / Time morphine Allergy Severe Swelling, Verified 10/24/23 17:29 "Violent reaction- almost " dapagliflozin [From Farxiga] Allergy Intermediate Yeast Verified 10/24/23 17:29 infections tetanus toxoid, adsorbed Allergy Intermediate Passed Verified 10/24/23 17:29 out, "got sick" as child bupropion [From Wellbutrin] AdvReac Intermediate Recurrent Verified 10/24/23 17:29 falls as per patient codeine AdvReac Intermediate Hallucinati Verified 10/24/23 17:29 ons empagliflozin AdvReac Intermediate Yeast Verified 10/24/23 17:29 [From Jardiance] infections heparin AdvReac Intermediate HIT, Verified 10/24/23 17:29 "Fluid in lungs" hydrocodone [From Vicodin] AdvReac Intermediate Drowsy Verified 10/24/23 17:29 Home Meds Home Medications Medication Instructions Recorded Confirmed aspirin 81 mg tablet,delayed 81 mg PO DAILY 09/20/23 10/24/23 release atorvastatin 20 mg tablet 20 mg PO DAILY 09/20/23 10/24/23 baclofen 10 mg tablet 10 mg PO BID PRN Muscle Spasm 09/20/23 10/24/23 clonazepam 0.5 mg tablet 0.5 mg PO BID 09/20/23 10/24/23 clopidogrel 75 mg tablet 75 mg PO DAILY 09/20/23 10/24/23 duloxetine 60 mg capsule,delayed See Rx Instructions .Route .COMPLEX 09/20/23 10/24/23 release furosemide 40 mg tablet 60 mg PO BID 09/20/23 10/24/23 gabapentin 300 mg capsule 600 mg PO TID 09/20/23 10/24/23 insulin aspart U-100 100 unit/mL 8 unit subcut UD 09/20/23 10/24/23 (3 mL) subcutaneous pen (Novolog FlexPen U-100 Insulin aspart) insulin degludec 100 unit/mL (3 50 unit subcut HS 12/26/23 01/29/24 mL) subcutaneous pen (Tresiba FlexTouch U-100 insulin) levothyroxine 200 mcg tablet See Rx Instructions .Route .COMPLEX 09/20/23 10/24/23 levothyroxine 50 mcg tablet See Rx Instructions .Route .COMPLEX 09/20/23 10/24/23 magnesium oxide 400 mg (241.3 mg 400 mg PO BID 09/20/23 10/24/23 magnesium) tablet omeprazole 20 mg capsule,delayed 20 mg PO DAILY 09/20/23 10/24/23 release oxycodone 5 mg tablet 5 mg PO Q6H PRN Pain 09/20/23 10/24/23 potassium chloride 20 mEq 20 meq PO BID 09/20/23 10/24/23 tablet,extended release(part/cryst) ropinirole 2 mg tablet 2 mg PO HS 09/20/23 10/24/23 sennosides 8.6 mg-docusate sodium 1 tab PO BID 09/20/23 10/24/23 50 mg tablet (Senna-Time S) tirzepatide 5 mg/0.5 mL 5 mg subcut WK 09/20/23 10/24/23 subcutaneous pen injector (Mounjaro) tramadol 50 mg tablet 50 mg PO TID PRN Pain 09/20/23 10/24/23 trazodone 100 mg tablet 100 mg PO HS 09/20/23 10/24/23 Vit D3 1000iu 200+50 Softge 1 tab PO QAM 10/24/23 10/24/23 apixaban 2.5 mg tablet (Eliquis) 2.5 mg PO BID 10/24/23 10/24/23 dicyclomine 20 mg tablet 20 mg PO QID PRN abdominal cramping 10/24/23 10/24/23 duloxetine 30 mg capsule,delayed See Rx Instructions .Route .COMPLEX 10/24/23 10/24/23 release triamcinolone acetonide 0.5 % 1 applic topical BID PRN chest rash 10/24/23 10/24/23 topical cream Results & Data (ED) Vital Signs Vital Signs - 24 hr 10/24/23 13:41 10/24/23 17:06 10/24/23 17:37 Temperature 36.3 C L Temperature Source Temporal Artery Scan Pulse Rate 92 H 81 Pulse Rate [Right Finger] 79 Respiratory Rate 18 16 Respiratory Effort / Characteristics Non-Labored Spontaneous Non-Labored Spontaneous Respiratory Depth Normal Normal Blood Pressure 141/75 H Blood Pressure [Right Arm] 125/55 L Blood Pressure Mean 97 Blood Pressure Mean [Right Arm] 78 Blood Pressure Position Sitting Pulse Oximetry 97 97 Oxygen Delivery Method Room Air Nasal Cannula Oxygen Flow Rate 4 Sepsis Recent Fever Within 48 Hours Yes Sepsis New/Unexplained Change in Mental Status N/A Sepsis Action Taken by Nursing No Action Required 10/24/23 17:44 Temperature Temperature Source Pulse Rate Pulse Rate [Right Finger] 81 Respiratory Rate 22 Respiratory Effort / Characteristics Respiratory Depth Blood Pressure Blood Pressure [Right Arm] 92/59 L Blood Pressure Mean Blood Pressure Mean [Right Arm] 70 Blood Pressure Position Pulse Oximetry 98 Oxygen Delivery Method Oxymask Oxygen Flow Rate 4 Sepsis Recent Fever Within 48 Hours Sepsis New/Unexplained Change in Mental Status Sepsis Action Taken by [facility] Medications Current Medication List: was personally reviewed by me Laboratory Data Attestation: I reviewed the patient's lab results. 10/25/23 06:13 10/25/23 06:13 Lab Results 10/24/23 10/24/23 10/24/23 Range/Units 14:12 14:31 16:04 WBC 14.11 H (4.8-10.8) K/ul RBC 4.02 L (4.20-5.40) M/uL Hgb 10.9 L (12.0-16.0) g/dl Hct 36.4 L (37.0-47.0) % MCV 90.5 (80.0-100.0) fL MCH 27.1 (25.0-34.0) pg MCHC 29.9 L (32.0-36.0) g/dL RDW Std Deviation 47.2 H (36.4-46.3) fL RDW Coeff of Adolfo 14.2 (11.5-14.5) % Plt Count 349 (130-400) K/uL MPV 10.3 (9.4-12.4) fL Immature Gran % (Auto) 0.5 % Neut % (Auto) 78.9 % Lymph % (Auto) 10.9 % Barton % (Auto) 7.8 % Eos % (Auto) 1.5 % Baso % (Auto) 0.4 % Neut # (Auto) 11.14 H (1.40-6.50) K/uL Lymph # (Auto) 1.54 (1.20-3.40) K/uL Barton # (Auto) 1.10 H (0.11-0.59) K/uL Eos # (Auto) 0.21 (0.00-0.50) K/uL Baso # (Auto) 0.05 (0.00-0.20) K/uL Immature Gran # (Auto) 0.07 (0.01-0.20) K/uL Sodium 135 L (136-145) mmol/L Potassium 4.3 (3.5-5.1) mmol/L Chloride 96 L (98-107) mmol/L Carbon Dioxide 32 (21-32) mmol/L Anion Gap 7 (3-11) BUN 30 H (6-23) mg/dl Creatinine 1.83 H (0.6-1.2) mg/dl Est Cr Clr Drug Dosing Not Reportable Est GFR ( Amer) 32.3 ml/min Est GFR (Non-Af Amer) 27.9 ml/min BUN/Creatinine Ratio 16.4 (10-20) Glucose 188 H (70-99(Fasting)) mg/dl Lactate (0.4-2.0) mmol/L Calcium 9.4 (8.6-10.3) mg/dl Magnesium 1.7 (1.7-2.4) mg/dl Total Bilirubin 0.6 (0.2-1.0) mg/dl AST 13 (13-39) U/L ALT 9 (7-52) U/L Alkaline Phosphatase 97 (34-104) U/L Total Protein 7.5 (6.0-8.3) gm/dl Albumin 3.5 (3.4-5.0) gm/dl Globulin 4.0 (2.5-4.0) gm/dl Albumin/Globulin Ratio 0.9 (0.9-2) Procalcitonin 0.13 (0-0.5) ng/ml Urine Color Dark Yellow Urine Appearance Turbid A (Clear) Urine pH 5.5 (4.5-7.5) Ur Specific Bim 1.017 (1.000-1.030) Urine Protein 3+ H (Negative) Urine Glucose (UA) Negative (Negative) Urine Ketones Negative (Negative) Urine Blood 3+ H (Negative) Urine Nitrite Negative (Negative) Urine Bilirubin Negative (Negative) Urine Urobilinogen Negative (Negative) Ur Leukocyte Esterase 3+ H (Negative) Urine WBC (Auto) >30 H (0-5) /hpf Urine RBC (Auto) >30 H (0-4) /hpf U Hyaline Cast (Auto) 5-10 H (0-5) /lpf U Epithel Cells (Auto) >30 H (0-5) /lpf Urine Bacteria (Auto) Negative (Negative) SARS-CoV-2 (PCR) NEGATIVE (Negative) Influenza Type A (PCR) Negative (Neg) Influenza Type B (PCR) Negative (Neg) RSV (RT-PCR) Negative (Neg) 10/24/23 Range/Units 17:41 WBC (4.8-10.8) K/ul RBC (4.20-5.40) M/uL Hgb (12.0-16.0) g/dl Hct (37.0-47.0) % MCV (80.0-100.0) fL MCH (25.0-34.0) pg MCHC (32.0-36.0) g/dL RDW Std Deviation (36.4-46.3) fL RDW Coeff of Adolfo (11.5-14.5) % Plt Count (130-400) K/uL MPV (9.4-12.4) fL Immature Gran % (Auto) % Neut % (Auto) % Lymph % (Auto) % Barton % (Auto) % Eos % (Auto) % Baso % (Auto) % Neut # (Auto) (1.40-6.50) K/uL Lymph # (Auto) (1.20-3.40) K/uL Barton # (Auto) (0.11-0.59) K/uL Eos # (Auto) (0.00-0.50) K/uL Baso # (Auto) (0.00-0.20) K/uL Immature Gran # (Auto) (0.01-0.20) K/uL Sodium (136-145) mmol/L Potassium (3.5-5.1) mmol/L Chloride (98-107) mmol/L Carbon Dioxide (21-32) mmol/L Anion Gap (3-11) BUN (6-23) mg/dl Creatinine (0.6-1.2) mg/dl Est Cr Clr Drug Dosing Est GFR ( Amer) ml/min Est GFR (Non-Af Amer) ml/min BUN/Creatinine Ratio (10-20) Glucose (70-99(Fasting)) mg/dl Lactate 1.3 (0.4-2.0) mmol/L Calcium (8.6-10.3) mg/dl Magnesium (1.7-2.4) mg/dl Total Bilirubin (0.2-1.0) mg/dl AST (13-39) U/L ALT (7-52) U/L Alkaline Phosphatase (34-104) U/L Total Protein (6.0-8.3) gm/dl Albumin (3.4-5.0) gm/dl Globulin (2.5-4.0) gm/dl Albumin/Globulin Ratio (0.9-2) Procalcitonin (0-0.5) ng/ml Urine Color Urine Appearance (Clear) Urine pH (4.5-7.5) Ur Specific Bim (1.000-1.030) Urine Protein (Negative) Urine Glucose (UA) (Negative) Urine Ketones (Negative) Urine Blood (Negative) Urine Nitrite (Negative) Urine Bilirubin (Negative) Urine Urobilinogen (Negative) Ur Leukocyte Esterase (Negative) Urine WBC (Auto) (0-5) /hpf Urine RBC (Auto) (0-4) /hpf U Hyaline Cast (Auto) (0-5) /lpf U Epithel Cells (Auto) (0-5) /lpf Urine Bacteria (Auto) (Negative) SARS-CoV-2 (PCR) (Negative) Influenza Type A (PCR) (Neg) Influenza Type B (PCR) (Neg) RSV (RT-PCR) (Neg) Administered Medications Apixaban (Apixaban 2.5 Mg Tab) 2.5 mg PO BID [facility] Stop: 11/23/23 20:59 Last Admin: 10/24/23 22:22 Dose: 2.5 mg Documented By: NDL Clonazepam (Clonazepam 0.5 Mg Tab) 0.5 mg PO BID ROBERT Stop: 11/23/23 20:59 Last Admin: 10/24/23 21:46 Dose: 0.5 mg Documented By: NDL Gabapentin (Gabapentin 600 Mg Tab) 600 mg PO TID [facility] Stop: 11/23/23 20:59 Last Admin: 10/24/23 22:23 Dose: 600 mg Documented By: DEVONTE Insulin Aspart (Insulin Aspart Per Unit Charge) 0 units SC ACHS [facility] Stop: 11/23/23 20:59 Last Admin: 10/24/23 21:47 Dose: 2 units Documented By: DEVONTE Co-signed By: RUTH Insulin Glargine (Lantus Per Unit Charge) 21 units SQ BID [facility] Stop: 11/23/23 20:59 Last Admin: 10/24/23 21:47 Dose: 21 units Documented By: DEVONTE Co-signed By: RUTH Levothyroxine Sodium (Levothyroxine Sodium 50 Mcg Tablet) 50 mcg PO DAILYBB [facility] Stop: 11/24/23 06:29 Last Admin: 10/25/23 05:55 Dose: 50 mcg Documented By: DEVONTE Levothyroxine Sodium (Levothyroxine Sodium 200 Mcg Tablet) 200 mcg PO DAILYBB [facility] Stop: 11/24/23 06:29 Last Admin: 10/25/23 05:56 Dose: 200 mcg Documented By: DEVONTE Magnesium Oxide (Magnesium Oxide 400 Mg Tab) 400 mg PO BID [facility] Stop: 11/23/23 20:59 Last Admin: 10/24/23 22:23 Dose: 400 mg Documented By: DEVONTE Oxycodone HCl (Oxycodone Hcl Ir 5 Mg Tab (Immediate Release)) 5 mg PO Q6H PRN PRN Reason: Pain Stop: 11/07/23 20:29 Last Admin: 10/25/23 04:15 Dose: 5 mg Documented By: Admin: 10/24/23 21:46 Dose: 5 mg Documented By: DEVONTE Ropinirole HCl (Ropinirole Hcl 2 Mg Tablet) 2 mg PO HS [facility] Stop: 11/23/23 20:59 Last Admin: 10/24/23 22:22 Dose: 2 mg Documented By: DEVONTE Senna/Docusate Sodium (Docusate Sodium/Senna 50/8.6mg Tab) 1 tab PO BID [facility] Stop: 11/23/23 20:59 Last Admin: 10/24/23 22:22 Dose: 1 tab Documented By: DEVONTE Trazodone HCl (Trazodone Hcl 100 Mg Tab) 100 mg PO HS ROBERT Stop: 11/23/23 20:59 Last Admin: 10/24/23 22:23 Dose: 100 mg Documented By: NDL Discontinued Medications Piperacillin Sod/Tazobactam Sod (Zosyn) 4.5 gm in 100 mls @ 200 mls/hr IV NOW ONE Stop: 10/24/23 16:47 Last Infusion: 10/24/23 18:21 Dose: Infused Documented By: Admin: 10/24/23 17:41 Dose: 200 mls/hr Documented By: ASW Imaging Data Radiologist's Impression: Abdomen/Pelvis CT 10/24/23 16:20 CT SCAN OF THE ABDOMEN AND PELVIS WITHOUT IV CONTRAST CLINICAL HISTORY: Generalized abdominal pain. COMPARISON STUDY: Abdominal CT dated 09/20/2023. TECHNIQUE: CT scan of the abdomen and pelvis is performed from the lung bases to the proximal femora. Images are reviewed in the axial, sagittal, and coronal planes. IV contrast was not administered for this examination. Note that the examination was performed in suboptimal fashion without oral and IV contrast. A dose lowering technique was utilized adhering to the principles of ALARA. CT DOSE: 1465.17 mGy.cm FINDINGS: Lung bases: The heart is normal in size and without pericardial effusion. The coronary arteries and mitral annulus are densely calcified. The lung bases are clear noting bibasilar scarring/atelectasis. Liver: The unenhanced liver is mildly enlarged measuring 19.8 cm in length. The liver is otherwise normal in contour and attenuation. There is no intrahepatic biliary ductal dilatation. Gallbladder: Surgically absent noting clips in the gallbladder fossa. Spleen: Normal in size and attenuation. Pancreas: The unenhanced pancreas is moderately atrophic and grossly unremarkable. Adrenal glands: Unremarkable. Kidneys: The unenhanced kidneys are atrophic. Moderate right-sided hydronephrosis is similar to previous. The right ureter is normal in caliber, with no obstructing stone or lesion identified. This likely represents a UVJ type obstruction. No hydronephrosis is seen on the left. There are no renal calculi identified. There is no evidence of contour deforming renal mass lesion. There is asymmetric perinephric stranding on the right. Abdominal vasculature: The abdominal aorta is normal in course and caliber noting advanced atherosclerotic calcification. An infrarenal IVC filter is in place. Bowel: There is postoperative change from sigmoid colon resection with colocolonic anastomosis. No bowel obstruction is seen. There is mild to moderate colonic fecal retention. Duodenal diverticula are incidentally noted. The appendix is well-visualized and normal. Peritoneum: There is no intraperitoneal free air or abdominal ascites. There is a fat-containing umbilical hernia. There is diastases of the rectus musculature with protrusion of abdominal contents. There is a also a small hernia in the right central pelvis seen on image #[id number]. Lymphadenopathy: None. Pelvic viscera: The the bladder is decompressed and not well assessed. Uterus and adnexa are normal as visualized. Skeletal structures: The skeletal structures are osteopenic. There is moderate lumbosacral spondylosis. No lytic or blastic lesions are seen. IMPRESSION: 1. Moderate right-sided hydronephrosis is similar to previous and likely represents a UPJ type obstruction. There is asymmetric right-sided perinephric stranding. Correlate with clinical findings and urinalysis or evidence of superimposed urinary tract infection. 2. Hepatomegaly. 3. Additional findings as above. ACT 112: Negative or not required by law. Electronically signed by: Zachariah Borden M.D. 10/24/2023 5:06 PM Discharge Plan Visit Data Chief Complaint: Diarrhea Stated Complaint: WEAKNESS, DIARRHEA, FATIGUE ED Provider: Sathish Lee Discharge Problem: ELSIE (acute kidney injury), Weakness, Diarrhea, Hydronephrosis Patient Disposition: Admitted As Inpatient Discharge Instructions Interventions: ED Discharge Assessment Last Done: 10/24/23 18:40 Discharge Problem: Diarrhea Qualifiers: Diarrhea type: unspecified type Qualified Code(s): R19.7 - Diarrhea, unspecified Hydronephrosis Qualifiers: Hydronephrosis type: unspecified Qualified Code(s): N13.30 - Unspecified hydronephrosis
--- NOTE | 2023-10-24 17:07 | CT Scan Report ---
CT SCAN OF THE ABDOMEN AND PELVIS WITHOUT IV CONTRAST CLINICAL HISTORY: Generalized abdominal pain. COMPARISON STUDY: Abdominal CT dated 09/20/2023. TECHNIQUE: CT scan of the abdomen and pelvis is performed from the lung bases to the proximal femora. Images are reviewed in the axial, sagittal, and coronal planes. IV contrast was not administered for this examination. Note that the examination was performed in suboptimal fashion without oral and IV contrast. A dose lowering technique was utilized adhering to the principles of ALARA. CT DOSE: 1465.17 mGy.cm FINDINGS: Lung bases: The heart is normal in size and without pericardial effusion. The coronary arteries and m itral annulus are densely calcified. The lung bases are clear noting bibasilar scarring/atelectasis. Liver: The unenhanced liver is mildly enlarged measuring 19.8 cm in length. The liver is otherwise no rmal in contour and attenuation. There is no intrahepatic biliary ductal dilatation. Gallbladder: Surgically absent noting clips in the gallbladder fossa. Spleen: Normal in size and attenuation. Pancreas: The unenhanced pancreas is moderately atrophic and grossly unremarkable. Adrenal glands: Unremarkable. Kidneys: The unenhanced kidneys are atrophic. Moderate right-sided hydronephrosis is similar to previ ous. The right ureter is normal in caliber, with no obstructing stone or lesion identified. This like ly represents a UVJ type obstruction. No hydronephrosis is seen on the left. There are no renal calcu li identified. There is no evidence of contour deforming renal mass lesion. There is asymmetric perin ephric stranding on the right. Abdominal vasculature: The abdominal aorta is normal in course and caliber noting advanced atheroscle rotic calcification. An infrarenal IVC filter is in place. Bowel: There is postoperative change from sigmoid colon resection with colocolonic anastomosis. No winston wel obstruction is seen. There is mild to moderate colonic fecal retention. Duodenal diverticula are incidentally noted. The appendix is well-visualized and normal. Peritoneum: There is no intraperitoneal free air or abdominal ascites. There is a fat-containing umbi lical hernia. There is diastases of the rectus musculature with protrusion of abdominal contents. The re is a also a small hernia in the right central pelvis seen on image #308. Lymphadenopathy: None. Pelvic viscera: The the bladder is decompressed and not well assessed. Uterus and adnexa are normal a s visualized. Skeletal structures: The skeletal structures are osteopenic. There is moderate lumbosacral spondylosi s. No lytic or blastic lesions are seen. IMPRESSION: 1. Moderate right-sided hydronephrosis is similar to previous and likely represents a UPJ type obstru ction. There is asymmetric right-sided perinephric stranding. Correlate with clinical findings and ur inalysis or evidence of superimposed urinary tract infection. 2. Hepatomegaly. 3. Additional findings as above. ACT 112: Negative or not required by law. Electronically signed by: Zachariah Borden M.D. 10/24/2023 5:06 PM
--- NOTE | 2023-10-24 18:10 | History & Physical Report ---
Date of Service October 24, 2023 Assessment & Plan (1) Weakness: Plan: Mulitifactorial. She has ongoing diarrhea for the past two weeks while recovering from a prolonged hospitalization with bacteremia. She has no evidence of infection today or sepsis. TSH WNL in outpt lab report. New proteinuria and RBCs also in urine. Has ongoing CKD. She also has anemia which is new in the last two months. She was also supposed to go to rehab but went home with HH from the hospital bc of insurance reasons. Will repeat therapy evals and (2) Diarrhea: Plan: Stool studies pending, rule out cdiff (3) CHF (congestive heart failure): Plan: chronic, stable. Will hold her lasix with ongoing diarrhea. (4) Polypharmacy: Plan: Likely contributing to weakness. She is on 3 blood thinners including apixaban (recently reduced by PCP), Plavix and asa. Would have her discuss with her binding dyer which antiplatelet to keep on board between Plavix and ASA. Especially in setting of anemia. She is also on multiple mood altering drugs including oxycodone, gabapentin, tramadol, trazodone, clonazepam, etc. Tapering this may help overall level of weakness and fatigue and improve her function. Especially with underlying obesity and ELISSA. (5) Type 2 diabetes, uncontrolled, with neuropathy: Plan: Hold home agents and continuw with basal/bolus insulin while admitted. (6) Abnormal finding on urinalysis: Plan: She has evidence of new proteinuria. Will reassess with spot protein/creat ratio and urine micoscopy with ongoing hematuria and proteinuria to rule out glomerular damage. Will hold off on abx at this time. (7) Sleep apnea: Plan: Chronic, compliant with CPAP qHS (8) CKD (chronic kidney disease), stage III: Plan: chronic, stable creatinine. Cont to monitor. (9) Hypothyroidism: Plan: chronic, stable. Cont thyroid replacement per home regimen. (10) Depression with anxiety: Plan: chronic, tearful because of being readmitted again. Stable. Cont home regimen. (11) Presence of IVC filter: (12) Morbid obesity: Plan: Reports losing >200 lbs, continues on Mounjaro which she missed last week because she was feeling unwell. DVT proph: Heparin Full Code as confirmed on admission Social: she lives at home with her cat. Has a brother who recently had surgery who lives with his locally in [facility]. I spent a total of75 minutes coordinating, documenting, and providing care for this patient excluding time spent in the performance of separately billed services Shantell Eli DO [facility] History of Present Illness Chief Complaint: diarrhea, weakness Primary Care Provider: Galdino Andujar DO 68 yo F presents with weakness and ongoing diarrhea that began approximately one week after returning home from the hospital. She underwent a TCAR procedure for carotid disease by Dr. Tang on 09/06/23 without issues. She was anemia at this time, and H/H hasn't seemed to recover with the additional hospitalization. Iron deficiency is present on outpatient labwork, also. Last CSP was in January 2016 revealing a normal end to end colonic anastomosis. She presented for LEONEL and UTI on 09/20 and was found to have sepsis acute pyelonephritis with bacteremia present. She was treated successfully with antibiotics and acute on chronic kidney disease was treated and was sent home with home health on 10/02/23. She went to see her outpatient physician on Tuesday for the diarrhea. Stool studies were ordered but she was unable to give a sample at that time. She reports ongoing watery, nonbloody diarrhea 3-4 times daily associated with a crampy R>L abdominal pain. Has a h/o complicated diverticulitis with partial colectomy in the past. +fevers, low appetite, denies vomiting, +diarrhea 3-4 episodes per day. She has a h/o partial colectomy on the right >10 yrs ago for complicated diverticulitis. Her overwhelming fatigue and increasing weakness and abdominal pain brought her here today. VSS reveal hypotension with BP 96/63 and HR 81. CBC reveals a leukocytosis to 14K and ongoing anemia. Although her H/H is not at her baseline, which is normal as of 6 months ago, it is stable to where it has been recently. Outpatient record review also reveals evidence of iron deficiency and PCP put her on iron supplementation which she has not yet started. Chem panel is reflective of mild dehydration and creatinine is at baseline. She may have a possible UTI with urine appearing turbid, 3+LE, +WBC, +RBC. She has evidence of new proteinuria. Allergies Allergy/AdvReac Type Severity Reaction Status Date / Time morphine Allergy Severe Swelling, Verified 10/24/23 17:29 "Violent reaction- almost " dapagliflozin [From Farxiga] Allergy Intermediate Yeast Verified 10/24/23 17:29 infections tetanus toxoid, adsorbed Allergy Intermediate Passed Verified 10/24/23 17:29 out, "got sick" as child bupropion [From Wellbutrin] AdvReac Intermediate Recurrent Verified 10/24/23 17:29 falls as per patient codeine AdvReac Intermediate Hallucinati Verified 10/24/23 17:29 ons empagliflozin AdvReac Intermediate Yeast Verified 10/24/23 17:29 [From Jardiance] infections heparin AdvReac Intermediate HIT, Verified 10/24/23 17:29 "Fluid in lungs" hydrocodone [From Vicodin] AdvReac Intermediate Drowsy Verified 10/24/23 17:29 Home Medications Medication Instructions Recorded Confirmed Type aspirin 81 mg tablet,delayed 81 mg PO DAILY 09/20/23 10/24/23 History release atorvastatin 20 mg tablet 20 mg PO DAILY 09/20/23 10/24/23 History baclofen 10 mg tablet 10 mg PO BID PRN Muscle Spasm 09/20/23 10/24/23 History clonazepam 0.5 mg tablet 0.5 mg PO BID 09/20/23 10/24/23 History clopidogrel 75 mg tablet 75 mg PO DAILY 09/20/23 10/24/23 History duloxetine 60 mg capsule,delayed See Rx Instructions .Route .COMPLEX 09/20/23 10/24/23 History release furosemide 40 mg tablet 60 mg PO BID 09/20/23 10/24/23 History gabapentin 300 mg capsule 600 mg PO TID 09/20/23 10/24/23 History insulin aspart U-100 100 unit/mL 8 unit subcut UD 09/20/23 10/24/23 History (3 mL) subcutaneous pen (Novolog FlexPen U-100 Insulin aspart) insulin degludec 100 unit/mL (3 50 unit subcut HS 09/20/23 10/24/23 History mL) subcutaneous pen (Tresiba FlexTouch U-100 insulin) levothyroxine 200 mcg tablet See Rx Instructions .Route .COMPLEX 09/20/23 10/24/23 History levothyroxine 50 mcg tablet See Rx Instructions .Route .COMPLEX 09/20/23 10/24/23 History magnesium oxide 400 mg (241.3 mg 400 mg PO BID 09/20/23 10/24/23 History magnesium) tablet omeprazole 20 mg capsule,delayed 20 mg PO DAILY 09/20/23 10/24/23 History release oxycodone 5 mg tablet 5 mg PO Q6H PRN Pain 09/20/23 10/24/23 History potassium chloride 20 mEq 20 meq PO BID 09/20/23 10/24/23 History tablet,extended release(part/cryst) ropinirole 2 mg tablet 2 mg PO HS 09/20/23 10/24/23 History sennosides 8.6 mg-docusate sodium 1 tab PO BID 09/20/23 10/24/23 History 50 mg tablet (Senna-Time S) tirzepatide 5 mg/0.5 mL 5 mg subcut WK 09/20/23 10/24/23 History subcutaneous pen injector (Mounjaro) tramadol 50 mg tablet 50 mg PO TID PRN Pain 09/20/23 10/24/23 History trazodone 100 mg tablet 100 mg PO HS 09/20/23 10/24/23 History Vit D3 1000iu 200+50 Softge 1 tab PO QAM 10/24/23 10/24/23 History apixaban 2.5 mg tablet (Eliquis) 2.5 mg PO BID 10/24/23 10/24/23 History dicyclomine 20 mg tablet 20 mg PO QID PRN abdominal cramping 10/24/23 10/24/23 History duloxetine 30 mg capsule,delayed See Rx Instructions .Route .COMPLEX 10/24/23 10/24/23 History release triamcinolone acetonide 0.5 % 1 applic topical BID PRN chest rash 10/24/23 10/24/23 History topical cream Past Med/Surg History Medical History Acute pyelonephritis Hypomagnesemia Mitral valve stenosis Echo 06/2023: Borderline mild mitral stenosis secondary to severe mitral annular calcification Chronic hypoxemic respiratory failure Cataract, bilateral Lumbago with sciatica Lower extremity pain, bilateral Neuropathy feet On home oxygen therapy 3L continuous CHF (congestive heart failure) Follows with Dr. Woodall Subclavian artery stenosis Cerebrovascular duplex study 06/2023: Retrograde flow in the right vertebral artery. 50-69% proximal right subclavian artery stenosis. Antegrade flow in the left vertebral artery. Normal flow in the left subclavian artery. Carotid stenosis, right Cerebrovascular duplex 07/11/23: 80-99% R ICA stenosis. No hemodynamically significant stenosis in the LICA. Diabetes mellitus, type II CKD (chronic kidney disease), stage III Follows with [facility] ELISSA on CPAP CPAP + 3L O2 (O2 is continuous) HTN (hypertension) HLD (hyperlipidemia) Morbid obesity HIT (heparin-induced thrombocytopenia) 2009, [facility] then life flight to [facility] > "resolved" Depression with anxiety Hypothyroidism History of pulmonary embolism 2008 s/p zoraida filter GERD (gastroesophageal reflux disease) RLS (restless legs syndrome) History of DVT (deep vein thrombosis) 2008 (during ICU [facility] admission/PNA) Presence of IVC filter 2008 Fibromyalgia Surgical History Family history of reaction to anesthesia Brother/niece- PONV Brother- "wakes up violent" History of colostomy reversal History of tooth extraction History of arthroscopy left ankle History of incisional hernia repair Nausea and vomiting after administration of anesthetic agent History of colonoscopy History of cholecystectomy History of total right knee replacement History of tracheostomy 06/2009 (per [facility] records), secondary to acute respiratory failure in setting of PNA, reversed a few months later History of thyroidectomy, total 2010 History of colon resection secondary to R colon perforation, resected treated with colostomy and eventual reversal in 2008, Dr. Lerma Family History Father , age 74 Lung cancer Mother , age 45 Cirrhosis Social History Smoking Status: Never smoker Tobacco Type: Cigarettes Cigarettes Per Day: 1996; Second Hand Exposure: No; Do You Dip or Chew Tobacco: No; Hx Alcohol Use: No Hx Substance Use: No Preferred Language: Central [place] Communication Ability: Effective Cell Plasterer Required: No Beliefs That Will Affect Care: None marital status: Single Current Living Situation: Alone Current Living Situation Comment: apartment How many Children do You have: 0 Feels Safe at Home: Yes Assistive Devices: Glasses, Oxygen - Continuous, Walker and Wheelchair Physical Exam Physical Exam: CONSTITUTIONAL: morbid obesity, vitals as above, generally ill-appearing and fatigued EYES: normal conjunctivae, no scleral icterus ENT: external ear and nose normal, MMM NECK: trachea midline RESPIRATORY: clear to auscultation bilaterally, no crackles, rales or wheezes, normal respiratory effort CARDIOVASCULAR: regular rate and rhythm, S1 and 2 heard without murmurs, gallops or rubs, no JVD, no peripheral edema CHEST: inspection of chest was normal GASTROINTESTINAL: soft, generalized TTP, no CVA tenderness, ND, no guarding MUSCULOSKELETAL: strength 5/5 throughout, can sit up independently but is generally weak, head is normocephalic and atraumatic SKIN: warm and dry NEUROLOGIC: CN 2-12 grossly intact, no sensory deficit, normal cognition, normal speech, no tremor PSYCHIATRIC: alert cooperative and oriented to person, place and time. Euthymic mood, makes good eye contact, language grossly intact, recent and remote memory grossly intact. Results & Data Results & Data Vital Signs (Past 12 Hours) Vital Signs Temp Pulse Pulse Resp BP BP Pulse Ox 10/24/23 17:44 81 22 92/59 L 98 10/24/23 17:06 79 16 125/55 L 97 10/24/23 13:41 36.3 C L 92 H 18 141/75 H 97 O2 Del Method O2 Flow Rate 10/24/23 17:44 Oxymask 4 10/24/23 17:06 Nasal Cannula 4 10/24/23 13:41 Room Air Laboratory Results Short CBC 10/24/23 Range/Units 14:31 WBC 14.11 H (4.8-10.8) K/ul Hgb 10.9 L (12.0-16.0) g/dl Hct 36.4 L (37.0-47.0) % Plt Count 349 (130-400) K/uL BMP 10/24/23 14:31 Sodium 135 L Potassium 4.3 Chloride 96 L Carbon Dioxide 32 BUN 30 H Creatinine 1.83 H Glucose 188 H Calcium 9.4 Liver Function 10/24/23 Range/Units 14:31 Total Bilirubin 0.6 (0.2-1.0) mg/dl AST 13 (13-39) U/L ALT 9 (7-52) U/L Alkaline Phosphatase 97 (34-104) U/L Albumin 3.5 (3.4-5.0) gm/dl Diagnostic Findings Abdomen/Pelvis CT 10/24/23 16:20 CT SCAN OF THE ABDOMEN AND PELVIS WITHOUT IV CONTRAST CLINICAL HISTORY: Generalized abdominal pain. COMPARISON STUDY: Abdominal CT dated 09/20/2023. TECHNIQUE: CT scan of the abdomen and pelvis is performed from the lung bases to the proximal femora. Images are reviewed in the axial, sagittal, and coronal planes. IV contrast was not administered for this examination. Note that the examination was performed in suboptimal fashion without oral and IV contrast. A dose lowering technique was utilized adhering to the principles of ALARA. CT DOSE: 1465.17 mGy.cm FINDINGS: Lung bases: The heart is normal in size and without pericardial effusion. The coronary arteries and mitral annulus are densely calcified. The lung bases are clear noting bibasilar scarring/atelectasis. Liver: The unenhanced liver is mildly enlarged measuring 19.8 cm in length. The liver is otherwise normal in contour and attenuation. There is no intrahepatic biliary ductal dilatation. Gallbladder: Surgically absent noting clips in the gallbladder fossa. Spleen: Normal in size and attenuation. Pancreas: The unenhanced pancreas is moderately atrophic and grossly unremarkable. Adrenal glands: Unremarkable. Kidneys: The unenhanced kidneys are atrophic. Moderate right-sided hydronephr osis is similar to previous. The right ureter is normal in caliber, with no obstructing stone or lesion identified. This likely represents a UVJ type obstruction. No hydronephrosis is seen on the left. There are no renal calculi identified. There is no evidence of contour deforming renal mass lesion. There is asymmetric perinephric stranding on the right. Abdominal vasculature: The abdominal aorta is normal in course and caliber noting advanced atherosclerotic calcification. An infrarenal IVC filter is in place. Bowel: There is postoperative change from sigmoid colon resection with colocol onic anastomosis. No bowel obstruction is seen. There is mild to moderate colonic fecal retention. Duodenal diverticula are incidentally noted. The appendix is well-visualized and normal. Peritoneum: There is no intraperitoneal free air or abdominal ascites. There is a fat-containing umbilical hernia. There is diastases of the rectus musculature with protrusion of abdominal contents. There is a also a small hernia in the right central pelvis seen on image #308. Lymphadenopathy: None. Pelvic viscera: The the bladder is decompressed and not well assessed. Uterus and adnexa are normal as visualized. Skeletal structures: The skeletal structures are osteopenic. There is moderate lumbosacral spondylosis. No lytic or blastic lesions are seen. IMPRESSION: 1. Moderate right-sided hydronephrosis is similar to previous and likely represents a UPJ type obstruction. There is asymmetric right-sided perinephric stranding. Correlate with clinical findings and urinalysis or evidence of s uperimposed urinary tract infection. 2. Hepatomegaly. 3. Additional findings as above. ACT 112: Negative or not required by law. Electronically signed by: Zachariah Borden M.D. 10/24/2023 5:06 PM Code Status & VTE Plan VTE Prophylaxis Plan VTE Prophylaxis will be ordered: Yes (3) CHF (congestive heart failure) Heart failure chronicity: acute on chronic Heart failure type: unspecified Qualified Code(s): I50.9 - Heart failure, unspecified
[2023-10-24 18:29] LABS: Appearance Urine Turbid (Clear); Bacteria Urine Automated Negative (Negative); Bilirubin Urine Negative (Negative); Blood Urine 3+ (Negative); Color Urine Dark Yellow; Epithelial Cell Urine Auto >30 /lpf (0-5); Glucose Urine UA Negative (Negative); Ketones Urine Negative (Negative); Leukocyte Esterase Urine 3+ (Negative); Nitrite Urine Negative (Negative); Protein Urine 3+ (Negative); RBC Urine Automated >30 /hpf (0-4); Specific Gravity Urine 1.017 (1.000-1.030); Urobilinogen Urine Negative (Negative); WBC Urine Automated >30 /hpf (0-5); pH Urine 5.5 (4.5-7.5)
[2023-10-24] MEDS ORDERED: GLUCOSE 40% GEL 15 GM TUBE PO PRN (18:56)
[2023-10-24] MEDS ORDERED: GLUCOSE 10 TAB/TUBE PO PRN (18:56)
[2023-10-24] MEDS ORDERED: CARBOHYDRATES FOR HYPOGLYCEMIA PO PRN (18:56)
[2023-10-24] MEDS ORDERED: DEXTROSE 50% 50 ML SYRINGE IV PRN (18:56)
[2023-10-24] MEDS ORDERED: GLUCAGON FOR INJ 1 MG VIAL SQ PRN (18:56)
[2023-10-24 20:13] LABS: Magnesium 1.7 mg/dl (1.7-2.4)
[2023-10-24] MEDS ORDERED: DICYCLOMINE HCL 20 MG TAB PO PRN (20:30)
[2023-10-24] MEDS ORDERED: BACLOFEN 10 MG TAB PO PRN (20:30)
--- OUTSIDE RECORDS SUMMARY | 2023-10-24 20:42 | External Medical Summary | Summary of Care ---
Author Name Unknown Organization [facility] Address [address] [place] [address] Phone [phone] Care Team Providers Care Dinkey Brakeman Name Role Phone Galdino Andujar DO Primary Care Provider [phone] Reason for Visit * Reason Comments Dosage Adjustment In Person (Anticoag Cl inic) Diabetes Follow-Up Encounter Details Date Type Department Care Team (Late st Contact Info) Description 10/20/2023 8:30 AM [facility] Pharmacy Family Practice 65 [facility] [address] [place] [address] [place], Pharmacist [address] [address] Type 2 diabetes mellitus with stage 3b chronic kidney disease, with long-term current use of insulin (HCC)*; Dyslipidemia Allergies Active Allergy Reactions Criticality Noted Date [...] as of this encounter (statuses as of 10/20/2023) Medications Medication Sig Dispensed Refills Start Date End Date Status ONETOUCH DELICA LANCETS 33G [facility] Check blood sugars 3-4 times daily 180 Each 5 8 Active oxygen GASIndications:ELISSA (obstructive sleep apnea) Use 3 L/min(Oxygen) as directed continuous. 0 0 Active CPAP every night at bedtime. 0 Active Acetaminophen 500 MG Oral Tablet (Tylenol) [...] of 7.0%-8.0% ([facility]) Inject 8 units with breakfast [...] Dexcom G7 Sensor Use as directed. (From [facility]) 0 3 Active Levothyroxine Sodium 200 MCG Oral Tablet (Levoxyl)Indication s:Postsurgical hypothyroidism TAKE 1 TABLET BY MOUTH ONCE DAILY IN THE MORNING 30 Tablet 5 3 Active Magnesium Oxide 400 [...] goal of 7.0%-8.0% ([facility]) INJECT 50 UNITS UNDER THE SKIN IN THE EVENING 60 mL 3 3 Active Atorvastatin Calcium 20 MG Oral [...] at bedtime. 30 Tablet 5 3 Active traMADol HCl [...] THE MORNING 30 Capsule 5 3 Active polyethylene glycol 3350 119 gram OR POWD Take by mouth as needed for Constipation. 0 Active Triamcinolone Acetonide 0.5 % External Cream (Aristocort)Indicat ions:Dermatitis Apply topically to affected area 2 times a day. Chest rash 60 g 0 4 Active Apixaban 2.5 MG Oral Tablet (Eliquis) Take 1 Tablet by mouth in the morning and 1 Tablet before bedtime. 60 Tablet 11 4 Active clonazePAM 0.5 MG Oral Tablet (KlonoPIN)Indicatio ns:Restless legs syndrome,Anxiety state TAKE 1 TABLET BY MOUTH IN THE MORNING AND AT BEDTIME 60 Tablet 0 4 Active Furosemide 40 MG Oral Tablet (Lasix)Indications: Chronic diastolic congestive heart failure (HCC) TAKE 1 AND 1/2 TABLETS BY MOUTH IN THE MORNING AND AT BEDTIME 84 Tablet 5 4 Active DULoxetine HCl 30 MG Oral Capsule Delayed Release Particles (Cymbalta)Indicatio ns:Fibromyalgia,Pete or depressive disorder, recurrent, moderate (HCC) TAKE 1 CAPSULE BY MOUTH ONCE DAILY IN THE MORNING 30 Capsule 5 4 Active Ferrous Sulfate 325 (65 Fe) MG Oral Tablet (Feosol)Indications :Anemia Take 1 Tablet by mouth in the morning and 1 Tablet before bedtime. 0 4 Active Dicyclomine HCl 20 MG Oral Tablet (Bentyl)Indications :Irritable bowel syndrome, unspecified type Take 1 Tablet (20 mg) by mouth 4 times a day as needed for Cramping. 180 Tablet 3 2 10/20/19 24 Discontinu ed(Refill) oxyCODONE HCl 5 MG Oral Tablet (Oxy IR)Indications:Lumb ar radiculopathy Take 1 Tablet by mouth every 6 hours as needed for Pain, Severe. 45 Tablet 0 3 10/20/19 24 Discontinu ed(Refill) documented as of this encounter (statuses as of 10/20/2023) Active Problems Problem Noted Date Diagnosed Date Iron deficiency 10/20/2023 Morbid (severe) obesity due to excess calories 0 10/04/2023 Body mass index (BMI) of 45.0 to 49.9 in adult 1 10/08/2022 Overview: Per Obesity protocol - Per Obesity Taxonomy ICD-10 update of inactive term DM peripheral angiopathy 07/13/2023 Last Assessment & Plan: Now followed by vascular, reports upcoming carotid surgery at [facility]. She states she has rx for atorvastatin and plavix to berry picker at pharmacy. Type 2 diabetes mellitus wit h stage 3b chronic kidney disease, with long-term current use of insulin 09/29/2022 Last Assessment & Plan: "RED FLAG" Diabetic symptoms: Other: none Goal HgbA1c <8 Diabetic Complications Vascular (examples: PVD, PAD, CAD, CVA) Renal (example: CKD, Proteinuria, Dialysis) Medication Regimen Basal/Long Acting Insulin GLP-1 Agonist (ex: Victoza, Trulicity, Ozempic) DM Secondary Prevention Moderate-High Intensity Statin Additional Comments Follows with MTM Using dexcom CGM Anxiety state 09/29/2022 Sacroiliitis, not elsewhere classified [...] 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 Atherosclerosis of [place] co ronary artery without angina pectoris 12/31/2021 [...] socks or shoes", "My pants feel tight") Increased dyspnea on exertion (Example: "I can't walk to the kitchen or up the stairs") Medication Regimen: Beta Faviola Therapy: No beta-faviola secondary to unknown WILI Inhibitor/ARB Therapy: No WILI/ARB/ARNI secondary to: unknown Diuretic therapy: Lasix SGLT2 Inhibitor: No Current SGLT2 (Describe in the Comments) Remote Patient Monitoring Vendor: No Connected RPM Device(s): No current devices Self - Management Plan Double dose of Furosemide for 3 days Exacerbation Plan BMP Pro-BNP Chest X-Ray Additional Comments: Stable today Lumbar radiculopathy 09/27/2018 [...] rx evidently given by vascular, has to berry picker rx documented as of this encounter (statuses as of 10/20/2023) Resolved Problems Problem Noted Date Diagnosed Date Resolved Date Acute combined systolic and diastolic congestive heart failure 10/04/2023 10/04/2023 Food insecurity 03/07/2023 04/07/2023 Overview: Per Fresh [...] as of this encounter (statuses as of 10/20/2023) Immunizations Name Administration Dates Next Due COVID-19 mRNA, LNP-s, No Pre serve, 2-Dose Series ([employer]) 01/08/2021,12/18/2020 COVID-19, LNP-s, No Preserve , Navarro-sucrose, Ages 12+ (Pfizer) 2022,10/01/2021 COVID-19, MRNA-LNP, 23-24, P F, 30 MCG/0.3 mL, 12 YRS AND ABOVE, IM (PFIZER-Comirnaty) 07/26/2023 Pneumococcal Conjugate Vacci ne, 20-valent ([id number]) 03/12/2022 Pneumococcal Polysaccharide PPV23 (Pneumovax) 08/22/2009,06/15/2006 Season [...] Date Recorded PHQ Adult Total Score 2 10/20/2023 Hunger Vital Sign Answer Date Recorded Within the past 12 months, y ou worried that your food would run out before you got the money to buy more. Never true 10/20/19 24 Within the past 12 months, t he food you bought just didn't last and you didn't have money to get more. Never true 10/20/2023 Sex and Gender Information Value Date Recorded Sex Assigned at Female 11/07/2019 2:21 PM EST Gender Identity Female 11/07/2019 2:21 PM EST Sexual Orientation Straight 11/07/2019 2: 21 PM EST Job Start Date Occupation Industry Not on file Not on file Not on file documented as of this encounter Progress Notes * Henny Duong, Frances Valle, [facility] - 10/20/2023 8:44 AM EST Images from the original note were not included. Medication Therapy Disease Management [facility] - Diabetes Management Progress Note Stephanie Camp, identified by name and date of , is a 68 year old female being seen for diabetes management/education. Patient presents for return diabetic visit. DIABETES: Current diabetic medications: Novolog - 8 units with breakfast, 8 [...] Hyperglycemia symptoms present: none Recent Labs Units 09/20/23 0000 07/25/23 0000 03/05/23 0000 HEMOGLOBIN, [id number] LAB 7.5* 9.2* 7.1 Recent Labs Units 10/13/23 1113 09/13/23 1005 09/07/23 0000 ESTIMATED GLOMERULAR FILTRATION RATE - [facility] mL/min 32* 36* -- EGFR-OUTSIDE LAB -- -- 30.7 CREATININE - [facility] mg/dL 1.7* 1.6* -- CREATININE-OUTSIDE LAB -- -- 1.69 HYPERTENSION: Patient on ACEi/ARB: no, not indicated BP Readings from Last 3 Encounters: 10/20/23 100/58 10/06/23 102/64 10/04/23 120/62 Blood pressure at goal: yes HYPERLIPIDEMIA: Patient is taking moderate or high intensity statin: yes HEALTH MAINTENANCE REVIEW: Health Maintenance Due Topic Date Due Hepatitis B (1 of 3 - Risk 3-dose series) Never done ASSESSMENT & PLAN: ICD-10-CM 1. Type 2 diabetes mellitus with stage 3b chronic kidney disease, with long-term current use of insulin (HCC) E11.22 N18.32 Z79.4 2. Dyslipidemia E78.5 BG Readings - Blood sugars improved. Last A1c down 1.5%. Was able to get Dexcom connected to Clarity again at appt. Medications - Reviewed current regimen, patient is adherent to regimen. Continue current regimen atthis time. Will consider going up on mounjaro at next appt. Diet, Exercise, Lifestyle - No significant lifestyle changes since last visit. Discussed with patient. Patient is agreeable to SMBG with CGM. Patient aware to contact clinic if any hypoglycemia before next visit. MEDICATION CHANGES: no change Diabetic Medications: Tresiba 45 units at bedtime today Mounjaro 5mg weekly on Fridays Metformin ER 500 mg 1 tablet daily eGFR 32 mL/min 10/13/23 HEALTH MAINTENANCE INTERVENTIONS: Labs: Ordered & Scheduled: Lipid Panel Immunizations: Up to Date Foot Exam: Up to Date Eye Exam: Up to Date Annual Wellness Visit: Up to Date FOLLOW UP: Return to clinic in 3 weeks with LUCI Huerta RPh Clinical Pharmacist - Assistant Press Operator Offset Medication Therapy Management Clinic 10/20/2023, 8:44 AM documented in this encounter Plan of Treatment Upcoming Encounters Date Type Department Care Team (Late st Contact Info) Description 10/24/2023 12:30 PM EST Home Visit [facility], [facility] [address] [place] [address] Vera Capellan, RN [address] [place] [address] 10/28/2023 10:00 AM EST Telemedicine Pulmonary Medicine, [place] [address] [place] [address] Ricardo Garrett MD [address], [place] [id number] Cart, Telemed Pulm Gw [address] [place] [address] 11/02/2023 1:00 PM EST Office Visit Nephrology, [facility] [place] [address] [facility] [place] [address] Erik Lenz MD 200 [facility] [place] [address] 11/11/2023 2:00 PM EST Nurse Only Ancillary 65 [facility] 293 [place] [address] College, Nurse Annual Wellness Visit [address] [place] [address] 11/11/2023 2:50 PM EST Pharmacy Family Practice 65 [facility] [address] [place] [address] College, Pharmacist [address] [place] [address] 01/11/2024 1:00 PM EDT Office Visit Cardiology, [facility] 132 [facility] [place] [address] Marjorie Powell PA-C [address] [address] 01/19/2024 9:00 AM EDT Office Visit Family Practice [address], [place] [address] [facility], [place] [phone] Galdino Andujar, [address] [place] [address] Scheduled Orders Name Type Priority Associated Diagnoses Orde r Schedule LIPID PANEL WITH DIRECT LDL IF TG IS HIGH Lab Routine Type 2 diabetes mellitus with stage 3b chronic kidney disease, with long-term current use of insulin (HCC) Dyslipidemia Expected: 10/20/2023, Expires: 10/20/2024 Scheduled Procedures Name Priority Associated Diagnoses Date/Ti me COLONOSCOPY FLEXIBLE PROXIMAL DIAGNOSTIC Recall Colon cancer screening Health Maintenance Due Date Last Done Comments Cologuard 2000 Fecal Occult Blood Test 2000 Sigmoidoscopy 2000 Hepatitis B (1 of 3 - Risk 3-dose series) 2015 CKD PHOS USE SMARTSET 45623 02/12/202401/24, 01/07/2022, 03/12/2021, Additional history exists HbA1c 03/21/2024 09/20/2023, 06/28, 03/05/2023, Additional history exists GFR 04/12/2024 10/13/2023, 08/26, 09/07/2023, Additional history exists Mammogram 04/21/2024 04/21/2023, 01/24, 10/01/2020, Additional history exists Diabetic Eye Exam 05/09/2024 05/09/2023, , 04/14/2021, Additional history exists Albumin/Creatinine Ratio 08/05/20242 023, 11/01/2022, 01/07/2022, Additional history exists Diabetic Foot Exam 10/04/2024 10/04/2023, 0 11/01/2022, 01/07/2022, Additional history exists CKD HGB USE SMARTSET 83324 10/13/202410/13, 10/13/2023, 09/13/2023, Additional history exists TSH 10/13/2024 10/13/2023, 02/0 02/2023, 01/07/2022, Additional history exists Depression Screening 10/20/2024 10/20/2023, 06/12/20 18 Colonoscopy 02/17/2026 02/18/2016, 01/25, 01/28/2006, [...] Date/Time Associated Diagnosis Comments HEMOGLOBIN A1C Routine 09/20/2023 documented in this encounter Results * (ABNORMAL) HEMOGLOBIN A1C (09/20/2023) HEMOGLOBIN, [id number] LAB 7.5(H) Blood Venous blood specimen / Unknown 09/20/2023 History Per Patient LAB BLOOD ORDERABLES documented in this encounter Visit Diagnoses Diagnosis Type 2 diabetes mellitus with stage 3b chronic kidney disease, with long-term current use of insulin (HCC)- Primary Dyslipidemia Other and unspecified hyperlipidemia documented in this encounter Advance Directives Documents on File Type Date Recorded 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 No Healthcare Agents on File Name Relationship Healthcare Agent Relationship Communication Galdino Camp Other - (no specific identity) Health Care Power of Transcript Evaluator Princess Other - (no specific identity) Health Care Power of Transcript Evaluator Care Teams Dinkey Brakeman Relationship Specialty Start Date End Date Galdino Andujar DO [address] [place] [address] PCP - General Internal Medicine 01/07/22 documented as of this encounter
--- OUTSIDE RECORDS SUMMARY | 2023-10-24 20:42 | External Medical Summary ---
Author Name Unknown Address Unknown Organization [id number]:LABORATORY [facility] - [address] [address] Laboratory Report Ordering Provider Test Date Status JAG SHULTZ 10/13/2023 11:13:00 Final Observation Date Value Abnormality Reference (Units ) Status Folic Acid 10/13/2023 11:13:00 8.7 >4.5 (ng/ mL) Final Performing Location LABORATORY [facility] - [address] [place] [address]
--- OUTSIDE RECORDS SUMMARY | 2023-10-24 20:42 | External Medical Summary ---
Author Name Unknown Address Unknown Organization [id number]:LABORATORY [facility] - [address] [facility] [address] Laboratory Report Ordering Provider Test Date Status JAG SHULTZ 10/13/2023 11:13:00 Final Observation Date Value Abnormality Reference (Units ) Status Retic, % (auto) 10/13/2023 11:13:00 2.49 Above high normal 0.80-1.90 (%) Final Reticulocytes, Absolute 10/13/2023 11:13:00 89.6 31.3-100.1 (K/uL) Final Reticulocyte fraction, immature 10/13/2023 11:13:00 18.0 2.5-20.6 (%) Final Reticulocyte HGB 10/13/2023 11:13:00 27.2 Below low normal 29.7-37.4 (pg) Final Performing Location LABORATORY [facility] - [address] [place] [address]
--- OUTSIDE RECORDS SUMMARY | 2023-10-24 20:42 | External Medical Summary ---
Author Name Unknown Address Unknown Organization [id number]:LABORATORY [facility] - [address] [place] [address] Laboratory Report Ordering Provider Test Date Status JAG SHULTZ 10/13/2023 11:13:00 Final Observation Date Value Abnormality Reference (Units ) Status Ferritin 10/13/2023 11:13:00 36 13-150 (ng /mL) Final Postmenopausal women have hi gher ferritin levels than pre-menopausal women. The above reference interval is based on pre-menopausal women. Performing Location LABORATORY [facility] - [address] [place] [address]
--- OUTSIDE RECORDS SUMMARY | 2023-10-24 20:42 | External Medical Summary | Summary of Care ---
Author Name Unknown Organization [facility] Address [address] [place] [address] Phone [phone] Care Team Providers Care Dairy Inspector Name Role Phone Galdino Andujar DO Primary Care Provider [phone] Reason for Visit * Reason Onset Date Comments Test Results 10/14/202310/14 Encounter Details Date Type Department Care Team (Late st Contact Info) Description 10/14/2023 Telephone Family Practice 65 [facility] [place] [address] [place] [address] Galdino Andujar DO [address] [place] [address] Test Results (10/14) Allergies Active Allergy Reactions Criticality Noted Date [...] as of this encounter (statuses as of 10/14/2023) Medications Medication Sig Dispensed Refills Start Date [...] goal of 7.0%-8.0% ([facility]) Inject 8 units with breakfast and 8units lunch and 10 units with dinner + sliding scale 1 units for every 25 units BG > 150. 150 mL 3 05/16/2023 Active Cholecalciferol 25 MCG (1000 UT) Oral Capsule TAKE 1 TABLET BY MOUTH ONCE DAILY IN THE MORNING 30 Capsule 5 05/22/2023 Active OneTouch Verio In Vitro Strip (Glucose [...] THE MORNING 30 Tablet 5 06/16/2023 Active Magnesium Oxide 400 MG Oral TabletIndications:B [...] goal of 7.0%-8.0% ([facility]) INJECT 50 UNITS UNDER THE SKIN IN THE EVENING 60 mL 3 08/04/2023 Active Atorvastatin Calcium 20 MG Oral Tablet [...] THE MORNING 30 Capsule 5 09/12/2023 Active polyethylene glycol 3350 119 gram OR POWD Take by mouth as needed for Constipation. 0 Active Triamcinolone Acetonide 0.5 % External Cream (Aristocort)Indicat ions:Dermatitis Apply topically to affected area 2 times a day. Chest rash 60 g 0 10/04/2023 Active Apixaban 2.5 MG Oral Tablet (Eliquis) Take 1 Tablet by mouth in the morning and 1 Tablet before bedtime. 60 Tablet 11 10/04/2023 Active clonazePAM 0.5 MG Oral Tablet (KlonoPIN)Indicatio ns:Restless legs syndrome,Anxiety state TAKE 1 TABLET BY MOUTH IN THE MORNING AND AT BEDTIME 60 Tablet 0 10/10/2023 Active Furosemide 40 MG Oral Tablet (Lasix)Indications: Chronic diastolic congestive heart failure (HCC) TAKE 1 AND 1/2 TABLETS BY MOUTH IN THE MORNING AND AT BEDTIME 84 Tablet 5 10/10/2023 Active DULoxetine HCl 30 MG Oral Capsule Delayed Release Particles (Cymbalta)Indicatio ns:Fibromyalgia,Pete or depressive disorder, recurrent, moderate (HCC) TAKE 1 CAPSULE BY MOUTH ONCE DAILY IN THE MORNING 30 Capsule 5 10/10/2023 Active Ferrous Sulfate 325 (65 Fe) MG Oral Tablet (Feosol)Indications :Anemia Take 1 Tablet by mouth in the morning and 1 Tablet before bedtime. 0 10/14/2023 Active documented as of this encounter (statuses as of 10/14/2023) Active Problems Problem Noted Date Diagnosed Date Morbid (severe) obesity due to excess calories 0 10/04/2023 Body mass index (BMI) of 45.0 to 49.9 in adult 1 10/08/2022 Overview: Per Obesity protocol - Per Obesity Taxonomy ICD-10 update of inactive term DM peripheral angiopathy 07/13/2023 Last Assessment & Plan: Now followed by vascular, reports upcoming carotid surgery at [facility]. She states she has rx for atorvastatin and plavix to picker at pharmacy. Type 2 diabetes mellitus [...] evidently given by vascular, has to picker rx documented as of this encounter (statuses as of 10/14/2023) Resolved Problems Problem Noted Date Diagnosed Date [...] as of this encounter (statuses as of 10/14/2023) Immunizations Name Administration Dates Next Due COVID-19 mRNA, LNP-s, No Pre serve, 2-Dose Series ([employer]) 01/08/2021,12/18/2020 COVID-19, LNP-s, No Preserve , Navarro-sucrose, Ages 12+ (Pfizer) 2022,10/01/2021 COVID-19, MRNA-LNP, 23-24, P F, 30 MCG/0.3 mL, 12 YRS AND ABOVE, IM ([employer]-Comirnat) 07/26/2023 Pneumococcal Conjugate Vacci ne, 20-valent ([id number]) 03/12/2022 Pneumococcal Polysaccharide PPV23 (Pneumovax) 08/22/2009,06/15/2006 Season [...] Date Recorded PHQ Adult Total Score 2 10/04/2023 Hunger Vital Sign Answer Date Recorded Within the past 12 months, y ou worried that your food would run out before you got the money to buy more. Never true 10/04/19 24 Within the past 12 months, t he food you bought just didn't last and you didn't have money to get more. Never true 10/04/2023 Sex and Gender Information Value Date Recorded Sex Assigned at Female 11/07/2019 2:21 PM EST Gender Identity Female 11/07/2019 2:21 PM EST Sexual Orientation Straight 11/07/2019 2: 21 PM EST Job Start Date Occupation Industry Not on file Not on file Not on file documented as of this encounter Miscellaneous Notes * Telephone Encounter - Shira Gross LPN - 10/14/2023 1:01 PM EST Patient is aware and will comply. Thank you * Telephone Encounter - Shira Gross LPN - 10/14/2023 12:59 PM EST ----- Message from Galdino Andujar DO sent at 10/14/2023 12:17 PM EST ----- Iron level is low Start Ferrous Sulfate 325 mg daily CKD is stable All other labs are stable. Continue current medications. Repeat CBC, iron screen and Ferritin in 2 months documented in this encounter Plan of Treatment Upcoming Encounters Date Type Department Care Team (Late st Contact Info) Description 10/18/2023 1:00 PM EST Office Visit Family Practice [address], [place] [address] [place] [phone] Galdino Andujar DO [address] [place] [address] 10/18/2023 1:00 PM EST Pharmacy Family Practice 65 [facility] 293 [facility], [place] [id number] College, Pharmacist [address] [place] [address] 10/20/2023 12:30 PM EST Telemedicine Orth[facility] 132 [facility] [place] [address] Andrea Paez PA-C [address] [place] [address] 10/24/2023 12:30 PM EST [facility] [address] [facility] [place] [address] Vera Capellan RN 132 [facility] [place] [address] 11/02/2023 1:00 PM EST Office Visit Nephrology, [facility] [address] [facility] [place] [address] Erik Lenz MD 200 [facility] [place] [address] 11/11/2023 2:00 PM EST Nurse Only Ancillary [address], [place] [address] College, Nurse Annual Wellness Visit [address], [place] [address] 01/11/2024 1:00 PM EDT Office Visit Cardiology, [facility] 132 [facility] [place] [address] Marjorie Powell, PADar 132 [facility] [place] [address] Scheduled Orders Name Type Priority Associated Diagnoses Orde r Schedule CBC Lab Routine Anemia Expected: 12/13/2023, Expires: 10/13/2024 IRON SCREEN, INCLUDING TIBC Lab Routine Anemia Expected: 12/13/2023, Expires: 10/13/2024 FERRITIN Lab Routine Anemia Expected: 12/13/2023, Expires: 10/13/2024 Scheduled Procedures Name Priority Associated Diagnoses Date/Ti me COLONOSCOPY FLEXIBLE PROXIMAL DIAGNOSTIC Recall Colon cancer screening Health Maintenance Due Date Last Done Comments Cologuard 2000 Fecal Occult Blood Test 2000 Sigmoidoscopy 2000 Hepatitis B (1 of 3 - Risk 3-dose series) 2015 HbA1c 01/24/2024 07/25/2023, 02/24, 02/11/2023, Additional history exists CKD PHOS USE SMARTSET 02545 02/12/202401/24, 01/07/2022, 03/12/2021, Additional history exists GFR 04/12/2024 10/13/2023, 08/26, 09/07/2023, Additional history exists Mammogram 04/21/2024 04/21/2023, 01/24, 10/01/2020, Additional history exists Diabetic Eye Exam 05/09/2024 05/09/2023, , 04/14/2021, Additional history exists Albumin/Creatinine Ratio 08/05/202408/05/ 023, 11/01/2022, 01/07/2022, Additional history exists Depression Screening 10/04/2024 10/04/2023, 06/12/20 18 Diabetic Foot Exam 10/04/2024 10/04/2023, 0 11/01/2022, 01/07/2022, Additional history exists CKD HGB USE SMARTSET 46701 10/13/202410/13, 10/13/2023, 09/13/2023, Additional history exists TSH 10/13/2024 10/13/2023, 02/0 02/2023, 01/07/2022, Additional history exists Colonoscopy 02/17/2026 02/18/2016, 05/01/2016, 01/28/2006, Additional history exists Colorectal Cancer Screening [...] as of this encounter Visit Diagnoses Diagnosis Anemia- Primary Anemia, unspecified documented in this encounter Advance Directives Documents on File Type Date Recorded Patient Pinmaker Expl anation POLST 03/19/2020 4:25 PM POLST [...] patient have Health Care Power of Hide Inspector And Sorter? No Healthcare Agents on File Name Relationship Healthcare Agent Relationship Communication Galdino Camp Other - (no specific identity) Health Care Power of Hide Inspector And Sorter Princess Allen Other - (no specific identity) Health Care Power of Hide Inspector And Sorter Care Teams Dairy Inspector Relationship Specialty Start Date End Date Galdino Andujar DO [address] [place] [address] PCP - General Internal Medicine 01/07/22 documented as of this encounter
--- OUTSIDE RECORDS SUMMARY | 2023-10-24 20:42 | External Medical Summary ---
Author Name Unknown Address Unknown Organization K01:[facility] [place] [address] [facility] [place] [address] Laboratory Report Ordering Provider Test Date Status CONCEPCIÓN TREVIÑO 10/13/2023 11:13:00 Final Observation Date Value Abnormality Reference (Units ) Status MYCODE SPECIMEN-SST 10/13/2023 11:13:00 Freezing of extracted DNA, whole blood and/or serum. Final Performing Location LABORATORY [facility] - [address] [place] [address]
--- OUTSIDE RECORDS SUMMARY | 2023-10-24 20:42 | External Medical Summary | Summary of Care ---
Author Name Unknown Organization [facility] Address [address] [place] [address] Phone [phone] Care Team Providers Care Enterprise Systems Manager Name Role Phone Galdino Andujar DO Primary Care Provider [phone] Reason for Referral * Evaluate & Treat - Unlimited Visits (Within 10 days (routine)) - Authorized Specialty Diagnoses / Procedures Referred By Ethan chao Referred To Contact Pulmonary Diseases / Pulmonary Diagnoses ILD (interstitial lung disease) (HCC) ELISSA (obstructive sleep apnea) Galdino Andujar DO [address] [place] [address] Referral ID Status Reason Start Date Expiration Date Visits Requested Visits Authorized [id number] Authorized Specialty Services Required 10/20/[phone] Question Answer Referral Priority Within 10 days (routine) Where should this appointment be scheduled? [facility] Reason for Referral? Other Reason for Visit * Reason Comments Follow Up Encounter Details Date Type Department Care Team (Latest Contact Info) Description 10/20/2023 8:00 AM EST Office Visit Family Practice [address] [facility] [place] [address] [place] [address] Galdino Andujar DO [address] [place] [address] 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 3b chronic kidney disease (HCC)*; Recurrent deep vein thrombosis (DVT) of both lower extremities (HCC); Atherosclerosis of houlton coronary artery of houlton heart without angina pectoris; Type 2 diabetes mellitus with stage 3b chronic kidney disease, with long-term current use of insulin ([facility]); Chronic hypoxemic respiratory failure ([facility]); Moderate episode of recurrent major depressive disorder ([facility]); DM peripheral angiopathy ([facility]); Dyslipidemia; History of pulmonary embolus (PE); Austin filter in place; Fibromyalgia; Statin intolerance; Gastroesophageal reflux disease with esophagitis without hemorrhage; Hyperparathyroidism, secondary renal ([facility]); Spinal stenosis of lumbar region without neurogenic claudication; Heparin induced thrombocytopenia (HIT) ([facility]); Anxiety state; Iron deficiency; Diarrhea, unspecified type; Lumbar radiculopathy; Irritable bowel syndrome, unspecified type; ILD (interstitial lung disease) ([facility]); ELISSA (obstructive sleep apnea) Allergies Active Allergy Reactions Criticality Noted Date [...] End Date Status [facility] Check blood sugars 3-4 times daily [...] Dexcom G7 Sensor Use as directed. (From [facility]) 0 3 Active Levothyroxine Sodium 200 [...] Oral Tablet (Levoxyl)Indication s:Hyperparathyroidi sm, secondary renal ([facility]) Take 1 Tablet by mouth daily [...] (Cymbalta)Indicatio ns:Fibromyalgia,Pete or depressive disorder, recurrent, moderate ([facility]) TAKE 1 CAPSULE BY MOUTH ONCE [...] 1 Tablet before bedtime. 0 4 Active oxyCODONE HCl 5 MG Oral Tablet (Oxy IR)Indications:Spin al stenosis of lumbar region without neurogenic claudication,Lumbar radiculopathy Take 1 Tablet by mouth every 6 hours as needed for Pain, Severe. 45 Tablet 0 4 Active Dicyclomine HCl 20 MG Oral Tablet (Bentyl)Indications :Irritable bowel syndrome, unspecified type Take 1 Tablet by mouth 4 times a day as needed for Cramping. 180 Tablet 3 4 Active Dicyclomine HCl 20 MG Oral [...] reports upcoming carotid surgery at [facility]. She states she has rx for atorvastatin [...] 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 Atherosclerosis of houlton co ronary artery without angina pectoris 12/31/2021 [...] 09/27/2018 05/14/2019 Mild episode of recurrent ma jnaae depressive disorder 08/26/2018 08/30/2022 Last Assessment & [...] mRNA, LNP-s, No Pre serve, 2-Dose Series ([employer]) 01/08/2021,12/18/2020 COVID-19, LNP-s, No Preserve , Navarro-sucrose, Ages 12+ (Pfizer) 2022,10/01/2021 COVID-19, MRNA-LNP, 23-24, P F, 30 MCG/0.3 mL, 12 YRS AND ABOVE, IM ([facility] 07/26/2023 Pneumococcal Conjugate Vacci ne, 20-valent ([id number]) 03/12/2022 Pneumococcal Polysaccharide PPV23 (Pneumovax) 08/22/2009,06/15/2006 Season [...] Reading Time Taken Comments Blood Pressure 100/58 10/20/2023 8:10 AM EST Pulse 80 10/20/2023 8:10 AM EST Temperature 36.7 C (98 F) 10/20/2023 8:10 AM EST Respiratory Rate 16 10/20/2023 8:10 AM EST Oxygen Saturation 94% 10/20/2023 8:10 AM EST 3 LPM Inhaled Oxygen Concentration - - Weight 129.2 kg (284 lb 12.8 oz) 10/20/2023 8:10 AM EST Height 165.1 cm (5' 5") 10/20/2023 8:10 AM EST Body Mass Index 47.39 10/20/2023 8:10 AM EST documented in this encounter Progress Notes * Galdino Andujar DO - 10/20/2023 8:45 AM EST SUBJECTIVE: Stephanie Camp is a 68 year old female. Chief Complaint Patient presents with Follow Up HPI: Patient is a 68 year old female with a history of DM type II, CKD stage III, Diastolic CHF, Transcarotid Artery Revascularization done on 09/09/2023, chronic hypoxic respiratory failure, HTN, recurrent DVT, IVC filter, Hyperlipidemia, Statin Intolerance, GERD, right Carotid Artery Stenosis, Lumbar Disc DIsease, Restless leg Syndrome, Sleep Apnea on CPAP, Heparin Induced Thrombocytopenia, and Ambulatory Dysfunction that is seen for follow up. She has diarrhea since she was on Cipro for Pyelonephritis. No fever or chills. No blood in the stool. Chronic shortness of breath is stable. Patient hasintermittent nausea Weight continues to decrease. Patient Active Problem List Diagnosis Code Dyslipidemia E78.5 Postsurgical hypothyroidism E89.0 ELISSA (obstructive sleep apnea) G47.33 Venous insufficiency I87.2 Essential hypertension with goal blood pressure less than 140/90 I10 History of pulmonary embolus (PE) Z86.711 Statin intolerance Z78.[address] Z95.828 Fibromyalgia M79.7 Abnormality of gait R26.9 Restless legs syndrome G25.81 Gastroesophageal reflux disease with esophagitis K21.00 Controlled substance agreement signed Z79.899 Lumbar radiculopathy M54.16 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 3b chronic kidney disease ([facility]) I13.0, I50.32, N18.32 Hyperparathyroidism, secondary renal ([facility]) N25.81 Vasculitis ([facility]) I77.6 Primary osteoarthritis of left knee M17.12 Spinal stenosis of lumbar region without neurogenic claudication M48.061 Heparin induced thrombocytopenia (HIT) ([facility]) D75.829 Atherosclerosis of houlton coronary artery without angina pectoris I25.10 Carotid artery stenosis, asymptomatic, right I65.21 Encounter for long-term (current) use of other medications Z79.899 Type 2 diabetes mellitus with hemoglobin A1c goal of less than 8.0% ([facility]) E11.9 Recurrent deep vein thrombosis (DVT) of both lower extremities ([facility]) I82.403 Chronic hypoxemic respiratory failure ([facility]) J96.11 Chronic kidney disease, stage 3b ([facility]) N18.32 ILD (interstitial lung disease) ([facility]) J84.9 Moderate episode of recurrent major depressive disorder ([facility]) F33.1 Primary osteoarthritis of both knees M17.0 Type 2 diabetes mellitus with stage 3b chronic kidney disease, with long-term current use of insulin ([facility]) E11.22, N18.32, Z79.4 Anxiety state F41.1 Sacroiliitis, not elsewhere classified ([facility]) M46.1 DM peripheral angiopathy ([facility]) E11.51 Body mass index (BMI) of 45.0 to 49.9 in adult ([facility]) Z68.42 Morbid (severe) obesity due to excess calories ([facility]) E66.01 Iron deficiency E61.1 Current Outpatient Medications Medication Sig Dispense Refill CPAP every night at bedtime. Acetaminophen 500 MG Oral Tablet (Tylenol) Take 2 Tablets by mouth in the morning and 2 Tablets at noon and 2 Tablets before bedtime. 100 Tablet 0 NovoLOG FlexPen 100 UNIT/ML Subcutaneous Solution Pen-injector (insulin aspart) Inject 8 units withbreakfast and 8units lunch and 10 units with dinner + sliding scale 1 units for every 25 units BG > 150. 150 mL 3 Cholecalciferol 25 MCG (1000 UT) Oral Capsule TAKE 1 TABLET BY MOUTH ONCE DAILY IN THE MORNING 30 Capsule 5 Levothyroxine Sodium 200 MCG Oral Tablet (Levoxyl) TAKE 1 TABLET BY MOUTH ONCE DAILY IN THE [id number] Tablet 5 Magnesium Oxide 400 MG Oral [...] IN THE MORNING 30 Capsule 3 Baclofen 10 MG Oral Tablet (Lioresal) Take [...] 50 UNITSUNDER THE SKIN IN THE EVENING 60 mL 3 Atorvastatin Calcium 20 MG Oral Tablet (Lipitor) Take 1 Tablet by mouth in the morning. Prescribed by Carmen Waggoner PA-C. Ondansetron HCl 4 MG Oral Tablet (Zofran) Take 1 Tablet by mouth every 6 hours as needed for Nausea. Senna-Time S 8.6-50 MG Oral Tablet (senna-docusate) TAKE 1 TABLET BY MOUTH IN THE MORNING AND AT BEDTIME 60 Tablet 5 traZODone HCl 100 MG Oral Tablet (Desyrel) TAKE 1 TABLET BY MOUTH AT BEDTIME 30 Tablet 5 rOPINIRole HCl 2 MG Oral Tablet (Requip) Take 1 Tablet by mouth at bedtime. 30 Tablet 5 traMADol HCl 50 MG [...] ONCEDAILY IN THE MORNING 30 Capsule 5 polyethylene glycol 3350 119 gram OR POWD Take by mouth as needed for Constipation. Apixaban 2.5 MG Oral Tablet (Eliquis) Take 1 Tablet by mouth in the morning and 1 Tablet before bedtime. 60 Tablet 11 clonazePAM 0.5 MG Oral Tablet (KlonoPIN) TAKE 1 TABLET BY MOUTH IN THE MORNING AND AT BEDTIME 60 Tablet 0 Furosemide 40 MG Oral Tablet (Lasix) TAKE 1 AND 1/2 TABLETS BY MOUTH IN THE MORNING AND AT BEDTIME 84 Tablet 5 DULoxetine HCl 30 MG Oral Capsule Delayed Release Particles (Cymbalta) TAKE 1 CAPSULE BY MOUTH ONCEDAILY IN THE MORNING 30 Capsule 5 oxyCODONE HCl 5 MG Oral Tablet (Oxy IR) Take 1 Tablet by mouth every 6 hours as needed for Pain, Severe. 45 Tablet 0 Dicyclomine HCl 20 MG Oral Tablet (Bentyl) Take 1 Tablet by mouth 4 times a day as needed for Cramping. 180 Tablet 3 ONETOUCH DELICA LANCETS 33G [facility] Check blood sugars 3-4 times daily 180 Each 5 oxygen GAS Use 3 L/min(Oxygen) as directed continuous. DIURETIC TITRATION PLAN If no improvement on day 3, contact heart failure managing provider. 1 Each0 OneTouch Verio In Vitro Strip (Glucose Blood) Use up to 4 times a day E11.9 in case of dexcom failure 100 Strip 11 Dexcom G7 Sensor Use as directed. (From [facility]) Mounjaro 5 MG/0.5ML Subcutaneous Solution Pen-injector (Tirzepatide) Inject 5 mg under the skin once a week. 2 mL 11 BD Pen Needle Short U/F 31G X 8 MM (Insulin Pen Needle) use five times daily 500 Each 3 Triamcinolone Acetonide 0.5 % External Cream (Aristocort) Apply topically to affected area 2 times a day. Chest rash 60 g 0 Ferrous Sulfate 325 (65 Fe) MG Oral Tablet (Feosol) Take 1 Tablet by mouth in the morning and 1 Tablet before bedtime. No current facility-administered medications for this visit. The patient's medication list was reviewed and updated as needed. Past Medical History: Diagnosis Date ELSIE (acute kidney injury) ([facility]) 06/12/2018 Allergic rhinitis due to other allergen Chronic hypoxemic respiratory failure ([facility]) 01/07/2022 Diverticulosis of colon 01/28/2006 Essential hypertension with goal blood pressure less than 140/90 02/22/2014 ELLIE (generalized anxiety disorder) 09/13/2009 Goiter [address] filter in place 08/19/2014 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[facility]) 08/22/2009 History of pulmonary embolus (PE) 07/16/2014 HTN, goal below 140/90 Impetigo 09/27/2018 Obesity, BMI not known Perforation of intestine ([facility]) 1996 COLON -- 1996 Pneumonia in aspergillosis(484.6) 09/14/2009 Recurrent deep vein thrombosis (DVT) of both lower extremities ([facility]) 01/07/2022 Sleep apnea, obstructive Spinal stenosis of lumbar region without neurogenic claudication 07/15/2020 Spontaneous pneumothorax 09/14/2009 Statin intolerance 07/16/2014 Type 2 diabetes mellitus with hemoglobin A1c goal of less than 8.0% ([facility]) 01/07/2022 Past Surgical History: Procedure Laterality Date ARTHROPLASTY KNEE TOTAL Right 07/24/2014 R COLONOSCOPY, DIAGNOSTIC (RECTUM) 02/18/2016 normal, repeat 10 yrs/[facility] COLONOSCOPY, GI REFERRAL OP 01/28/2006 diverticulosis--repeat 10 years INCISION OF WINDPIPE, PLANNED 06/03/2011 TRACHEOSTOMY PLANNED performed by DANNY HOLDER at OR [facility] [place] INJECT DX/THER SUBSTANCE INTERLAMINAR LUMBAR/SACRAL W IMAGE GUIDE 05/26/2020 INJECTION SPINE LUMBAR OR SACRAL performed by Raj Ahn DO at OR [facility] INJECT DX/THER SUBSTANCE INTERLAMINAR LUMBAR/SACRAL W IMAGE GUIDE 05/14/2021 INJECTION SPINE LUMBAR OR SACRAL performed by Raj Ahn DO at OR [facility] INJECT DX/THER SUBSTANCE INTERLAMINAR LUMBAR/SACRAL W IMAGE GUIDE 08/13/2021 INJECTION SPINE LUMBAR OR SACRAL performed by Raj Ahn DO at OR [facility] KNEE ARTHROSCOPY/DEBRIDEMENT 07/27/[address] PERMANENT GASTROSTOMY TUBE 09/06/2009 GASTROSTOMY WITH CONSTUCTION GASTRIC TUBE performed by AMADOU NUNEZ at [facility] REMOVAL OF THYROID GLAND 06/15/2011 THYROIDECTOMY INCLUDING SUBSTERNAL THYROID CERVICAL APPROACH performed by DANNY HOLDER at OR [facility] [place] REMOVE GALLBLADDER 09/06/2009 CHOLECYSTECTOMY performed by AMADOU NUNEZ at [facility] REPAIR RECURRENT INCISIONAL HERNIA 09/26/1998 REVISION OF COLOSTOMY, SIMPLE 09/26/1997 SACROILIAC JOINT INJECT W/GUIDANCE 07/28/2020 INJECTION SACROILIAC JOINT performed by Pillow Callum Ahn DO at OR [facility] SACROILIAC JOINT INJECT W/GUIDANCE 03/03/2022 INJECTION SACROILIAC JOINT performed by Pillow Callum Ahn DO at OR [facility] SACROILIAC JOINT INJECT W/GUIDANCE 05/04/2023 INJECTION SACROILIAC JOINT performed by Pillow Callum Ahn DO at OR [facility] SUTURE, LARGE INTESTINE W/COLOSTOMY 09/26/1996 perforation R colon with colostomy TRANSCATH STENT-CAROTID ARTERY, W/EMBOL PROTECTION Right 09/06/2023 Dr. Tang VENA CAVA FILTER/LIGATION/CLIP 08/19/2009 Frank filter placement through the right femoral 08/19/[address] Lerma at [facility] Review of patient's allergies indicates: Allergen Reactions [...] chest pain and palpitations. Gastrointestinal: Positive for diarrhea and nausea. Negative for abdominal pain, blood in stool, constipation and vomiting. Genitourinary: Negative for dysuria and hematuria. Musculoskeletal: Positive for arthralgias, back pain and gait problem. Neurological: Negative for dizziness, syncope and headaches. Psychiatric/Behavioral: Positive for dysphoric mood. Negative for confusion, decreased concentration and sleep disturbance. The patient is not nervous/anxious. OBJECTIVE: BP 100/58 | Pulse 80 | Temp 36.7 C (98 F) | Resp 16 | Ht 1.651 m (5' 5") | Wt 129.2 kg (284 lb 12.8 oz) | LMP 03/11/2003 | SpO2 94% Comment: 3 LPM | BMI 47.39 kg/m | BSA 2.43 m Physical Exam Vitals and nursing note [...] is depressed. Affect is blunt and flat. PLAN AND ASSESSMENT: 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 3b chronic kidney disease (HCC) (Primary) Continue Furosemide Recurrent deep vein thrombosis (DVT) of both lower extremities (HCC) Continue Apixaban S/p IVC filter Atherosclerosis of houlton coronary artery of houlton heart without angina pectoris Continue ASA Type 2 diabetes mellitus with stage 3b chronic kidney disease, with long-term current use of insulin (HCC) Continue Hubert Horton, and Novolog Continue to follow with MTM Chronic hypoxemic respiratory failure (HCC) Continue Oxygen Moderate episode of recurrent major depressive disorder (HCC) Continue Duloxetine DM peripheral angiopathy (HCC) Dyslipidemia Continue Atorvastatin History of pulmonary embolus (PE) Continue Apixaban Austin filter in place Fibromyalgia Statin intolerance Gastroesophageal reflux disease with esophagitis without hemorrhage Continue Omeprazole Hyperparathyroidism, secondary renal (HCC) Spinal stenosis of lumbar region without neurogenic claudication - oxyCODONE HCl 5 MG Oral Tablet (Oxy IR); Take 1 Tablet by mouth every 6 hours as needed for Pain,Severe. 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 Irritable bowel syndrome, unspecified type - Dicyclomine HCl 20 MG Oral Tablet (Bentyl); Take 1 Tablet by mouth 4 times a day as needed for Cramping. I have reviewed the patients controlled substance dispensing history in the Prescription Drug Monitoring Program in compliance with the [facility] regulations before prescribing a controlled substance. Last [...] results can be found in Results Review. Follow Up: Return in about 3 months (around 01/19/2024), or if symptoms worsen or fail to improve. Galdino Andujar DO 8:45 AM 10/20/2023 documented in this encounter Nursing Notes * Shira Gross LPN - 10/20/2023 8:07 AM EST Here for follow up, can't afford to purchase ferrous sulfate documented in this encounter Plan of Treatment Upcoming Encounters Date Type Department Care Team (Late st Contact Info) Description 10/24/2023 12:30 PM EST Home Visit [facility] [address] [facility] [place] [address] Vera Capellan RN [address] [facility] [place] [address] 10/28/2023 10:00 AM EST Telemedicine Pulmonary Medicine, [place] [address] [place] [address] Ricardo Garrett MD [address] [place] [address] Cart, Telemed Pulm Gw [address] [facility] [place] [address] 11/02/2023 1:00 PM EST Office Visit Nephrology, [facility] [address] [place] [address] Erik [place]enz MD [address] [place] [address] 11/11/2023 2:00 PM EST Nurse Only Ancillary 65 [facility] [address] [facility] [place] [address] College, Nurse Annual Wellness Visit 65 [facility] [address] [facility] [place] [address] 01/11/2024 1:00 PM EDT Office Visit Cardiology, [facility] [address] [facility] [place] [address] Marjorie Powell PA-C [address] [place] [address] 01/19/2024 9:00 AM EDT Office Visit Family Practice [address] [place] [address] [address] [facility] [place] [address] Galdino Andujar, [address] [place] [address] Scheduled Orders Name Type Priority Associated Diagnoses Orde r Schedule GASTROINTESTINAL PATHOGEN PANEL, STOOL Lab Routine Diarrhea, unspecified type Expected: 10/20/2023 (Approximate), Expires: 10/19/2024 CLOSTRIDIUM DIFFICILE, PCR Lab Routine Diarrhea, unspecified type Expected: 10/20/2023 (Approximate), Expires: 10/19/2024 MAGNESIUM Lab Routine Diarrhea, unspecified type Expected: 10/20/2023 (Approximate), Expires: 10/19/2024 Scheduled Procedures Name Priority Associated Diagnoses Date/Ti me COLONOSCOPY FLEXIBLE PROXIMAL DIAGNOSTIC Recall Colon cancer screening Scheduled Referrals Name Type Priority Associated Diagnoses Orde r Schedule PULMONARY REFERRAL OP Referral Within 10 days (routine) ILD (interstitial lung disease) (HCC) ELISSA (obstructive sleep apnea) Ordered: 10/20/2023 Health Maintenance Due Date Last Done Comments Cologuard 2000 Fecal Occult Blood Test 2000 Sigmoidoscopy 2000 Hepatitis B (1 of 3 - Risk 3-dose series) 2015 CKD PHOS USE SMARTSET 29130 02/12/202401/24, 01/07/2022, 03/12/2021, Additional history exists HbA1c 03/21/2024 09/20/2023, 06/28, 03/05/2023, Additional history exists GFR 04/12/2024 10/13/2023, 08/26, 09/07/2023, Additional history exists Mammogram 04/21/2024 04/21/2023, 01/24, 10/01/2020, Additional history exists Diabetic Eye Exam 05/09/2024 05/09/2023, , 04/14/2021, Additional history exists Albumin/Creatinine Ratio 08/05/2024 023, 11/01/2022, 01/07/2022, Additional history exists Diabetic Foot Exam 10/04/2024 10/04/2023, 0 11/01/2022, 01/07/2022, Additional history exists CKD HGB USE SMARTSET 69862 10/13/202410/13, 10/13/2023, 09/13/2023, Additional history exists TSH 10/13/2024 10/13/2023, 0202/2023, 01/07/2022, Additional history exists Depression Screening 10/20/2024 [...] stage 3b chronic kidney disease (HCC)- Primary Recurrent deep vein thrombosis (DVT) of both lower extremities (HCC) Atherosclerosis of houlton coronary artery of houlton heart without angina pectoris Type 2 diabetes mellitus with stage 3b chronic kidney disease, with long-term current use of insulin (HCC) Chronic hypoxemic respiratory failure (HCC) Chronic respiratory failure Moderate episode of recurrent major depressive disorder (HCC) DM peripheral angiopathy (HCC) Type II or unspecified type diabetes mellitus with peripheral circulatory disorders, not stated as uncontrolled Dyslipidemia Other and unspecified hyperlipidemia History of pulmonary embolus (PE) Personal history of pulmonary embolism Frank filter in place Other postprocedural status Fibromyalgia Mylagia and myositis, unspecified Statin intolerance Other drug allergy Gastroesophageal reflux disease with esophagitis without hemorrhage Hyperparathyroidism, secondary renal (HCC) Secondary hyperparathyroidism (of renal origin) Spinal stenosis of lumbar region without neurogenic claudication Spinal stenosis, lumbar region, without neurogenic claudication 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) 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HIT) Anxiety state Anxiety state, unspecified Iron deficiency Iron deficiency anemia, unspecified Diarrhea, unspecified type Lumbar radiculopathy Thoracic or lumbosacral neuritis or radiculitis, unspecified Irritable bowel syndrome, unspecified type ILD (interstitial lung disease) (HCC) Postinflammatory pulmonary fibrosis ELISSA (obstructive sleep apnea) Obstructive sleep apnea (adult) (pediatric) documented in this encounter Advance Directives Documents on File Type Date Recorded 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 No Healthcare Agents on File Name Relationship Healthcare Agent Relationship Communication Galdino Camp Other - (no specific identity) Health Care Power of Laryngologist Princess Allen Other - (no specific identity) Health Care Power of Laryngologist Care Teams Enterprise Systems Manager Relationship Specialty Start Date End Date Galdino Andujar DO [address] [facility] [place] [address] PCP - General Internal Medicine 01/07/22 documented as of this encounter
--- OUTSIDE RECORDS SUMMARY | 2023-10-24 20:43 | External Medical Summary ---
Author Name Unknown Address Unknown Organization [id number]:LAB[facility]ATORY [facility] - [address] [facility]. [facility] [address] Laboratory Report Ordering Provider Test Date Status JAG SHULTZ 10/13/2023 11:13:00 Final Observation Date Value Abnormality Reference (Units ) Status SYNC LEUKOCYTES IN BLOOD BY AUTOMATED COUNT 10/13/2023 11:13:00 11.87 Above high normal 4.00-10.80 (K/uL) Final Segs 10/13/2023 11:13:00 73.9 40.0-75.0 (%) Final Lymphs % 10/13/2023 11:13:00 13.6 Below low normal 18.0-42.0 (%) Final Monos 10/13/2023 11:13:00 7.0 1.0-11.0 (%) Final Eosinophils 10/13/2023 11:13:00 4.5 0.0-6.0 (%) Final Basos 10/13/2023 11:13:00 0.6 0.0-2.0 (%) Final Immature Granulocyte, Percent 10/13/2023 11:13:00 0.4 0.0-2.0 (%) Final Absolute Segs 10/13/2023 11:13:00 8.77 Above high normal 1.80-7.70 (K/uL) Final Lymphs, absolute 10/13/2023 11:13:00 1.62 1.00-4.80 (K/ul) Final Monos, Abs 10/13/2023 11:13:00 0.83 0.00-1.10 (K/uL) Final Eos, Abs 10/13/2023 11:13:00 0.53 0.00-0.70 (K/uL) Final Basos, Abs 10/13/2023 11:13:00 0.07 0.00-0.20 (K/uL) Final Immature Granulocytes, Number 10/13/2023 11:13:00 0.05 0.00-0.20 (K/uL) Final Performing Location LABORATORY [facility] - [address] [facility] [address]
--- OUTSIDE RECORDS SUMMARY | 2023-10-24 20:43 | External Medical Summary ---
Author Name Unknown Address Unknown Organization [id number]:[facility] - [address] [facility] [address] [facility] [address] [facility] [address] Laboratory Report Ordering Provider Test Date Status JAG SHULTZ 10/13/2023 11:13:00 Final Observation Date Value Abnormality Reference (Units ) Status WBC, Total 10/13/2023 11:13:00 11.87 Above high normal 4.00-10.80 (K/uL) Final RBC 10/13/2023 11:13:00 3.60 3.85-5.15 (M/uL) Final Hemoglobin 10/13/2023 11:13:00 10.4 Below low normal 12.0-15.3 (g/dL) Final HCT 10/13/2023 11:13:00 35.0 Below low normal 36.0-45.2 (%) Final MCV 10/13/2023 11:13:00 97.2 81.5-97.5 (fL) Final MCH 10/13/2023 11:13:00 28.9 27.0-34.0 (pg) Final MCHC 10/13/2023 11:13:00 29.7 32.0-36.0 (g/dL) Final RDW 10/13/2023 11:13:00 14.2 11.5-15.5 (%) Final Platelets 10/13/2023 11:13:00 440 Above high normal 140-400 (K/uL) Final MPV 10/13/2023 11:13:00 10.5 6.6-11.1 (fL) Final Nucleated erythrocytes/100 leukocytes [Ratio] in Blood by Automated count 10/13/2023 11:13:00 0 <=0 (/100 WBCs) Final Performing Location LABORATORY [facility] - [address] [place] [address]
--- OUTSIDE RECORDS SUMMARY | 2023-10-24 20:43 | External Medical Summary | Summary of Care ---
Author Name Unknown Organization [facility] Address [address] [place] [address] Phone [phone] Care Team Providers Care Sample Washer Name Role Phone Lexii Andujar DO Primary Care Provider [phone] Reason for Visit * Reason Comments eRx-Medication Refill Encounter Details Date Type Department Care Team (Late st Contact Info) Description 10/05/2023 Refill Family Practice [address] [place] [address] [place] [phone] Lexii Andujar DO [address] [place] [address] Restless legs syndrome; Anxiety state Allergies Active [...] as of this encounter (statuses as of 10/10/2023) Medications Medication Sig Dispensed Refills Start Date [...] goal of 7.0%-8.0% ([facility]) INJECT 50 UNITS UNDER THE SKIN [...] Active Triamcinolone Acetonide 0.5 % External Cream (Aristocort)Indica tions:Dermatitis Apply topically to affected area 2 times a day. Chest rash 60 g 0 4 Active Apixaban 2.5 MG Oral Tablet (Eliquis) Take 1 Tablet by mouth in the morning and 1 Tablet before bedtime. 60 Tablet 11 4 Active clonazePAM 0.5 MG Oral Tablet (KlonoPIN)Indicati ons:Restless legs syndrome,Anxiety state TAKE 1 TABLET BY MOUTH IN THE MORNING AND AT BEDTIME 60 Tablet 0 4 Active clonazePAM 0.5 MG Oral Tablet (KlonoPIN)Indicati ons:Restless legs syndrome,Anxiety state TAKE 1 TABLET BY MOUTH IN THE MORNING AND AT BEDTIME 60 Tablet 0 3 024 Discontinued documented as of this encounter (statuses as of 10/10/2023) Active Problems Problem Noted Date Diagnosed Date [...] has rx for atorvastatin and plavix to bulk picker at pharmacy. 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 Atherosclerosis of [place] co ronary artery without angina pectoris 12/31/2021 Last Assessment & Plan: No chest pain. Stable. -continue Eliquis -likely no Wiil or beta-faviola due to hypotension. Statin intolerance [...] Assessment & Plan: Home PT to start [place] filter in place 08/19/2014 History of pulmonary [...] rx evidently given by vascular, has to bulk picker rx documented as of this encounter (statuses as of 10/10/2023) Resolved Problems Problem Noted Date Diagnosed Date [...] with long-term current use of insulin 01/07/2020 10/06/2 020 Overview: Per CKD protocol Chronic respiratory [...] as of this encounter (statuses as of 10/10/2023) Immunizations Name Administration Dates Next Due COVID-19 mRNA, LNP-s, No Pre serve, 2-Dose Series ([employer]) 01/08/2021,12/18/2020 COVID-19, LNP-s, No Preserve , Navarro-sucrose, Ages 12+ (Pfizer) 2022,10/01/2021 COVID-19, MRNA-LNP, 23-24, P F, 30 MCG/0.3 mL, 12 YRS AND ABOVE, IM (PFIZER-Comirnaty) 07/26/2023 Pneumococcal Conjugate Vacci ne, 20-valent ([id number]) 03/12/2022 Pneumococcal Polysaccharide PPV23 (Pneumovax) 08/22/2009,06/15/2006 Season [...] Telephone Encounter - Lexii Andujar DO - 10/10/2023 7:50 AM ESTSigned Prescriptions: Disp Refills clonazePAM 0.5 MG Oral Tablet (KlonoPIN) 60 Tab*0 Sig: TAKE 1 TABLET BY MOUTH IN THE MORNING AND AT BEDTIMEAuthorizing Provider: LEXII ANDUJAR * Telephone Encounter - Lexii Andujar DO - 10/10/2023 7:49 AM EST I have reviewed the patients controlled substance dispensing history in the Prescription Drug Monitoring Program in compliance with the [facility] regulations before prescribing a controlled substance. [...] Medication due today * Telephone Encounter - Nathaly Mitchell [facility] - 10/06/2023 12:03 PM ESTPending Prescriptions: Disp Refills clonazePAM 0.5 MG Oral Tablet [Pharmacy Me*60 Tab*0 Sig: TAKE 1 TABLET BY MOUTH IN THE MORNING AND AT BEDTIME * Telephone Encounter - Nathaly Mitchell RP - 10/06/2023 12:02 PM EST I have reviewed the patients controlled substance dispensing history in the Prescription Drug Monitoring Program in compliance with the [facility] regulations before prescribing a controlled substance. PDMP checked on 10/06/2023. Pending Prescriptions: Disp Refills clonazePAM 0.5 MG Oral Tablet (KlonoPIN) *60 Tab*0 Sig: TAKE 1 TABLET BY MOUTH IN THE MORNING AND AT BEDTIME Last Visit: 10/04/2023 (in office), 08/04/2023 (telemedicine) Next Visit: 10/18/2023 Date medication was last filled: 09/13/23 Date medication is due for refill: 10/10/23 Pharmacy: [facility] [address] Is this request for a controlled [...] Results Review. Please approve if appropriate. Thanks, Nathaly Mitchell, PharmD Clinical Pharmacist [facility] ([facility] - [facility]) [phone] 10/06/2023 12:02 PM documented in this encounter Plan of Treatment Upcoming Encounters Date Type Department Care Team ([facility] st Contact Info) Description 10/13/2023 8:50 AM EST Laboratory Lab Mobile Phlebotomy [facility] [address] [place] [address] [facility], [facility] Mobile Home Draw [address] [place] [address] 10/18/2023 1:00 PM EST Office Visit Family Practice [address] [facility] [address] [place] [phone] Lexii Andujar, [address] [place] [address] 10/18/2023 1:00 PM EST Pharmacy Family Practice [address] [facility] [address] [place] [phone] College, Pharmacist [address] [address] 10/20/2023 12:30 PM EST Telemedicine Orthopaedics [facility] [address] [place] [address] Andrea Paez PA-C [address] [place] [address] 10/24/2023 12:30 PM EST [facility] [address] [place] [address] Vera Capellan RN [address] [place] [address] 11/02/2023 1:00 PM EST Office Visit Nephrology, [facility] [address] [place] [address] Erik Lenz MD [address] [facility] [place] [address] 11/11/2023 2:00 PM EST Nurse Only Ancillary [address] [facility] [address] [facility] [address] College, Nurse Annual Wellness Visit [address] [facility] [address] [place] [address] 01/11/2024 1:00 PM EDT Office Visit Cardiology, [facility] [address] [place] [address] Marjorie Powell PA-C [address] [place] [address] Scheduled Procedures Name Priority Associated Diagnoses Date/Ti me COLONOSCOPY FLEXIBLE PROXIMAL DIAGNOSTIC Recall Colon cancer screening Health Maintenance Due Date Last Done Comments Cologuard 2000 Fecal Occult Blood Test 2000 Sigmoidoscopy 2000 Hepatitis B (1 of 3 - Risk 3-dose series) 2015 TSH 11/01/2023 11/01/2022, 12/25, 12/25/2020, Additional history exists HbA1c 01/24/2024 07/25/2023, 02/24, 02/11/2023, Additional history exists CKD PHOS USE SMARTSET 32573 02/12/202401/24, 01/07/2022, 03/12/2021, Additional history exists GFR 03/14/2024 09/13/2023, 08/26, 07/25/2023, Additional history exists Mammogram 04/21/2024 04/21/2023, 01/24, 10/01/2020, Additional history exists Diabetic Eye Exam 05/09/2024 05/09/2023, , 04/14/2021, Additional history exists Albumin/Creatinine Ratio 08/05/20242 023, 11/01/2022, 01/07/2022, Additional history exists CKD HGB USE SMARTSET 43242 09/13/202409/13, 09/13/2023, 07/25/2023, Additional history exists Depression Screening 10/04/2024 10/04/2023, 06/12/20 18 Diabetic Foot Exam 10/04/2024 10/04/2023, 0 11/01/2022, 01/07/2022, Additional history exists Colonoscopy 02/17/2026 [...] on File Type Date Recorded Patient Survey Field Technician Expl anation POLST 03/19/2020 4:25 PM [...] the patient have Health Care Power of Pvc Monitor? No Healthcare Agents on File Name Relationship Healthcare Agent Relationship Communication Lexii Camp Other - (no specific identity) Health Care Power of Pvc Monitor Princess Staplesfany Other - (no specific identity) Health Care Power of Pvc Monitor Care Teams Sample Washer Relationship Specialty Start Date End Date Lexii Andujar DO [address] [place] [address] PCP - General Internal Medicine 01/07/22 documented as of this encounter
--- OUTSIDE RECORDS SUMMARY | 2023-10-24 20:43 | External Medical Summary | Summary of Care ---
Author Name Unknown Organization [facility] Address [address] [facility] [place] [address] Phone [phone] Care Team Providers Care Hog Feeder Name Role Phone Galdino Andujar DO Primary Care Provider [phone] Reason for Visit * Reason Onset Date Comments [facility]: Maintenance 10/08/2023 Encounter Details Date Type Department Care Team (Late st Contact Info) Description 10/08/2023 2:00 PM EST Scheduled Telephone [facility], [facility] [address] [facility] [place] [address] [facility], Nurse [facility] [address] [facility] [place] [address] Allergies Active Allergy Reactions Criticality Noted Date [...] as of this encounter (statuses as of 10/08/2023) Medications Medication Sig Dispensed Refills Start Date [...] CKD stage 3 ([facility]),Chronic diastolic congestive heart failure (HCC) TAKE 1 TABLET BY MOUTH IN THE MORNING AND AT BEDTIME 60 Tablet 5 07/12/2023 Active Levothyroxine Sodium 50 MCG Oral Tablet (Levoxyl)Indication s:Hyperparathyroidi sm, secondary renal ([facility]) Take 1 Tablet by mouth daily first [...] of 7.0%-8.0% ([facility]) INJECT 50 UNITS UNDER THE SKIN IN [...] AT BEDTIME 60 Tablet 0 09/12/2023 Active polyethylene glycol 3350 119 gram [...] before bedtime. 60 Tablet 11 10/04/2023 Active documented as of this encounter (statuses as of 10/08/2023) Active Problems Problem Noted Date Diagnosed Date Morbid (severe) obesity due to excess calories 0 10/04/2023 Body mass index (BMI) of 45.0 to 49.9 in adult 1 10/08/2022 Overview: Per Obesity protocol - Per Obesity Taxonomy ICD-10 update of inactive term DM peripheral angiopathy 07/13/2023 Last Assessment & Plan: Now followed by vascular, reports upcoming carotid surgery at [facility]. She states she has rx [...] 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 Atherosclerosis of [place] co ronary artery without angina pectoris 12/31/2021 [...] Assessment & Plan: Home PT to start [place] filter in place 08/19/2014 History of [...] as of this encounter (statuses as of 10/08/2023) Resolved Problems Problem Noted Date Diagnosed Date [...] as of this encounter (statuses as of 10/08/2023) Immunizations Name Administration Dates Next Due COVID-19 mRNA, LNP-s, No Pre serve, 2-Dose Series ([employer]) 01/08/2021,12/18/2020 COVID-19, LNP-s, No Preserve , Navarro-sucrose, Ages 12+ (Pfizer) 2022,10/01/2021 COVID-19, MRNA-LNP, 23-24, P F, 30 MCG/0.3 mL, 12 YRS AND ABOVE, IM (wikifolio-Comirnat) 07/26/2023 Pneumococcal Conjugate Vacci ne, 20-valent ([id number]) 03/12/2022 Pneumococcal Polysaccharide PPV23 (Pneumovax) 08/22/2009,06/15/2006 Season [...] encounter Miscellaneous Notes * Telephone Encounter - Aniya Nassar RN - 10/08/2023 5:59 PM EST [facility] Telephonic Nurse Follow-Up Call [facility] Subprogram: Focused Care Management (3-9 months) Follow Up Call Type: Routine follow up call / Status Check Acute issue requiring follow-up call: Other: left foot pain Objective: 10/06/2023 10:12 AM 10/04/2023 3:08 PM 09/13/2023 8:59 AM 08/24/2023 12:33 PM 08/06/2023 2:10 PM VITALS ACROSS ENCOUNTERS BP 102/64 120/62 122/60 140/70 100/74 Pulse 90 91 100 70 92 Weight 131.5 kg 134 kg 132.9 kg BMI 49.17 BMI 48.24 kg/m2 49.17 kg/m2 48.76 kg/m2 Lab Results Component Value Date WBC AUTO - [facility] 12.24 (H) 09/13/2023 Lab Results Component Value Date WBC AUTO - [facility] 12.24 (H) 09/13/2023 HGB - [facility] 10.8 (L) 09/13/2023 PLATELET AUTO - [facility] 352 09/13/2023 Lab Results Component Value Date SODIUM - [facility] 137 09/13/2023 POTASSIUM - [facility] 4.2 09/13/2023 CO2 - [facility] 31 09/13/2023 CREATININE - [facility] 1.6 (H) 09/13/2023 ESTIMATED GLOMERULAR FILTRATION RATE - [facility] 36 (L) 09/13/2023 Lab Results Component Value Date LEFT VENTRICULAR EJECTION FRACTION 55 07/14/2023 Remote Patient Monitoring: NONE Oxygen Needs: NO supplemental oxygen needs identified DME Needs: NO DME needs identified Medications: No medication or dose adjustments made during acute episode Subjective: Condition Status: Improvement in symptoms but not at baseline Current Concerns: Spoke to patient she did not go to ED yesterday She rested her foot most of the day States it is better today Was not able to weight bare yesterday but can today Denies trauma or falls Does have some edema Advised RICE Pt aware to call [facility] with any concerns Disposition: Routed to [place] and/or [facility] Care Team for further advice Future Visits Scheduled: Future Appointments-next 60 days Date/Time Provider Specialty Dept Phone 10/13/2023 8:50 AM [facility], [facility] Mobile Home Draw Laboratory Processing [phone] 10/18/2023 1:00 PM (Arrive by 12:45 PM) Galdino Andujar DO Family Medicine [phone] 10/18/2023 1:00 PM (Arrive by 12:45 PM) College, Pharmacist [address] [facility] Family Medicine [phone] 10/20/2023 12:30 PM Andrea Paez PA-C Orthopedics [phone] 10/24/2023 12:30 PM Vera Capellan RN [facility] [phone] 11/02/2023 1:00 PM (Arrive by 12:45 PM) Erik Lenz MD Nephrology [phone] 11/11/2023 2:00 PM College, Nurse Annual Wellness Visit [address] [facility] Ancillary [phone] 01/11/2024 1:00 PM (Arrive by 12:45 PM) Marjorie Powell PA-C Cardiology [phone] Aniya Nassar RN documented in this encounter Plan of Treatment Upcoming Encounters Date Type Department Care Team (Late st Contact Info) Description 10/13/2023 8:50 AM EST Laboratory Lab Mobile Phlebotomy [facility] [address] [place] [address] [facility], [facility] Mobile Home Draw [address] [place] [address] 10/18/2023 1:00 PM EST Office Visit Family Practice 65 [facility] [address] [place] [phone] Galdino Andujar, [address] [place] [address] 10/18/2023 1:00 PM EST Pharmacy Family Practice [address] [phone] College, Pharmacist [address] [address] 10/20/2023 12:30 PM EST Telemedicine Orthopaedics [facility] [address] [place] [address] Andrea Paez PA-C [address] [place], [place] [phone] 10/24/2023 12:30 PM EST [facility] Visit [facility] [address] [place] [address] Vera Capellan, RN [address] [place] [address] 11/02/2023 1:00 PM EST Office Visit Nephrology, [facility] [address] [place] [address] Erik Lenz MD 200 [facility] [place] [address] 11/11/2023 2:00 PM EST Nurse Only Ancillary 65 [facility] [address] [facility] [address] College, Nurse Annual Wellness Visit [address] [place] [address] 01/11/2024 1:00 PM EDT Office Visit Cardiology, [facility] [address] [place] [address] Marjorie Powell PA-C [address] [place] [address] Scheduled Procedures Name Priority Associated Diagnoses Date/Ti me COLONOSCOPY FLEXIBLE PROXIMAL DIAGNOSTIC Recall Colon cancer screening Health Maintenance Due Date Last Done Comments Cologuard 2000 Fecal Occult Blood Test 2000 Sigmoidoscopy 2000 Hepatitis B (1 of 3 - Risk 3-dose series) 2015 TSH 11/01/2023 11/01/2022, 12/25, 12/25/2020, Additional history exists HbA1c 01/24/2024 07/25/2023, 02/24, 02/11/2023, Additional history exists CKD PHOS USE SMARTSET 15975 02/12/202401/24, 01/07/2022, 03/12/2021, Additional history exists GFR 03/14/2024 09/13/2023, 08/26, 07/25/2023, Additional history exists Mammogram 04/21/2024 04/21/2023, 01/24, 10/01/2020, Additional history exists Diabetic Eye Exam 05/09/2024 05/09/2023, , 04/14/2021, Additional history exists Albumin/Creatinine Ratio 08/05/20242 023, 11/01/2022, 01/07/2022, Additional history exists CKD HGB USE SMARTSET 79744 09/13/202409/13, 09/13/2023, 07/25/2023, Additional history exists Depression [...] Documents on File Type Date Recorded Patient Contact Center Assistant Expl anation POLST 03/19/2020 4:25 PM [...] patient have Health Care Power of Medical Staff Services Coordinator? No Healthcare Agents on File Name Relationship Healthcare Agent Relationship Communication Galdino Camp Other - (no specific identity) Health Care Power of Medical Staff Services Coordinator Princess Allen Other - (no specific identity) Health Care Power of Medical Staff Services Coordinator Care Teams Hog Feeder Relationship Specialty Start Date End Date Galdino Andujar DO [address] [place] [facility] [place] [address] PCP - General Internal Medicine 01/07/22 documented as of this encounter
--- OUTSIDE RECORDS SUMMARY | 2023-10-24 20:43 | External Medical Summary ---
Author Name Unknown Address Unknown Organization K01:LABORATORY [facility] - [address] [facility] [address] [place] [address] Laboratory Report Ordering Provider Test Date Status JAG SHULTZ 10/13/2023 11:13:00 Final Observation Date Value Abnormality Reference (Units ) Status Iron 10/13/2023 11:13:00 31 Below low normal 33-151 (ug/dL) Final Iron-binding capacity 10/13/2023 11:13:00 336 250-425 (ug/dL) Final Transferrin Sat % 10/13/2023 11:13:00 9 Below low normal 15-55 (%) Final Performing Location LABORATORY [facility] - [address] [place] [address]
--- OUTSIDE RECORDS SUMMARY | 2023-10-24 20:43 | External Medical Summary | Summary of Care ---
Author Name Unknown Organization [facility] Address [address] [place] [address] Phone [phone] Care Team Providers Care Reading Teacher Name Role Phone Lexii Andujar DO Primary Care Provider Reason for Visit * Reason Comments eRx-Medication Refill Encounter Details Date Type Department Care Team (Late st Contact Info) Description 10/07/2023 Refill [facility], [facility] [address] [place] [address] Lexii Andujar DO [address] [place] [address] Chronic diastolic congestive heart failure (HCC); Fibromyalgia; Major depressive disorder, recurrent, moderate (HCC) Allergies Active Allergy Reactions Criticality Noted [...] of 7.0%-8.0% ([facility]) Inject 8 units with breakfast [...] Dexcom G7 Sensor Use as directed. (From [facility]) 0 3 Active Levothyroxine Sodium [...] of 7.0%-8.0% ([facility]) INJECT 50 UNITS UNDER THE [...] 4 Active Furosemide 40 MG Oral Tablet (Lasix)Indications :Chronic diastolic congestive heart failure (HCC) TAKE 1 AND 1/2 TABLETS BY MOUTH IN THE MORNING AND AT BEDTIME 84 Tablet 5 4 Active DULoxetine HCl 30 MG Oral Capsule Delayed Release Particles (Cymbalta)Indicati ons:Fibromyalgia,M ajor depressive disorder, recurrent, moderate (HCC) TAKE 1 CAPSULE BY MOUTH ONCE DAILY IN THE MORNING 30 Capsule 5 4 Active Furosemide 40 MG Oral Tablet (Lasix)Indications :Chronic diastolic congestive heart failure (HCC) TAKE 1 AND 1/2 TABLETS BY MOUTH IN THE MORNING AND AT BEDTIME 84 Tablet 5 3 024 Discontinued DULoxetine HCl 30 MG Oral Capsule Delayed Release Particles (Cymbalta)Indicati ons:Fibromyalgia,M ajor depressive disorder, recurrent, moderate (HCC) TAKE 1 CAPSULE BY MOUTH ONCE DAILY IN THE MORNING 30 Capsule 5 3 024 Discontinued documented as of this [...] by vascular, reports upcoming carotid surgery at [facility]. She states she has rx [...] 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 Atherosclerosis of [place] ronary artery without angina pectoris 12/31/2021 [...] Assessment & Plan: Home PT to start [place] filter in place 08/19/2014 History of pulmonary [...] mRNA, LNP-s, No Pre serve, 2-Dose Series ([employer]) 01/08/2021,12/18/2020 COVID-19, LNP-s, No Preserve , Navarro-sucrose, Ages 12+ ([employer]) 2022,10/01/2021 COVID-19, MRNA-LNP, 23-24, P F, 30 MCG/0.3 mL, 12 YRS AND ABOVE, IM (PFIZER-Comirnat) 07/26/2023 Pneumococcal Conjugate Vacci ne, 20-valent ([id number]) 03/12/2022 Pneumococcal Polysaccharide PPV23 (Pneumovax) 08/22/2009,06/15/2006 Season [...] Encounter - Lexii Andujar DO - 10/10/2023 10:33 AM ESTSigned Prescriptions: Disp Refills Furosemide 40 MG Oral Tablet (Lasix) 84 Tab*5 Sig: TAKE 1 AND 1/2 TABLETS BY MOUTH IN THE MORNING AND AT BEDTIMEAuthorizing Provider: LEXII ANDUJAR DULoxetine HCl 30 MG Oral Capsule Delayed *30 Cap*5 Sig: TAKE 1 CAPSULE BY MOUTH ONCE DAILY IN THE MORNINGAuthorizing Provider: LEXII ANDUJAR ------ * Telephone Encounter - Mattie Mao, CHUYITA - 10/10/2023 8:49 AM EST Did you pend patient's preferred pharmacy and medication before forwarding?yes Pharmacy: [facility] [address] [facility] Pending Prescriptions: Disp Refills Furosemide 40 MG Oral Tablet (Lasix) [Pha*84 Tab*5 Sig: TAKE 1 AND 1/2 TABLETS BY MOUTH IN THE MORNING AND AT BEDTIME DULoxetine HCl 30 MG Oral Capsule Delayed*30 Cap*5 Sig: TAKE 1 CAPSULE BY MOUTH ONCE DAILY IN THE MORNING Last Visit: Visit date not found (in office), Visit date not found (telemedicine) Next Visit: Visit date not found If no future appointments scheduled, and last appointment is greater than a year ago, please schedule patient for a follow-up appointment Last date the medication was ordered: 05/20/23 Is this request for a controlled substance?No [...] Results Component Value Date/Time CREAT 1.6 (H) 09/13/2023 10:05 AM CREAT 1.69 09/07/2023 12:00 AM CREAT 2.0 (H) 05/06/2020 08:46 AM POTASSIUM 4.2 09/13/2023 10:05 AM POTASSIUM 3.9 07/25/2023 12:00 AM POTASSIUM [...] AM * Telephone Encounter - Pop Greer RP - 10/10/2023 7:48 AM EST Pending Prescriptions: Disp Refills Furosemide 40 MG Oral Tablet [Pharmacy Med*84 Tab*5 Sig: TAKE 1AND 1/2 TABLETS BY MOUTH IN THE MORNING AND AT BEDTIME DULoxetine HCl 30 MG Oral Capsule Delayed *30 Cap*5 Sig: TAKE 1 CAPSULE BY MOUTH ONCE DAILY IN THE MORNING documented in this encounter Plan of Treatment Upcoming Encounters Date Type Department Care Team (Late st Contact Info) Description 10/13/2023 8:50 AM EST Laboratory Lab [facility] [address] [place] [address] [facility], [facility] Mobile Home Draw [address] [place] [address] 10/18/2023 1:00 PM EST Office Visit Family Practice 65 [facility] 293 [facility] [place] [phone] Lexii Andujar, 293 [place] [address] 10/18/2023 1:00 PM EST Pharmacy Family Practice 65 [facility] 293 [facility] [place] [phone] [place], Pharmacist [address] [place] [address] 10/20/2023 12:30 PM EST Telemedicine Orthopaedics [facility] 132 [facility] [address] Andrea Paez PA-C [address] [place] [address] 10/24/2023 12:30 PM EST Home Visit [facility], [facility] 132 [place] [address] Vera Capellan RN 132 [facility] [address] 11/02/2023 1:00 PM EST Office Visit Nephrology, [facility] [address] [place] [address] Erik Lenz MD [address] [place] [address] 11/11/2023 2:00 PM EST Nurse Only Ancillary 65 [facility] 293 [facility], [place] [address] College, Nurse Annual Wellness Visit [address] [place], [place] [address] 01/11/2024 1:00 PM EDT Office Visit Cardiology, [facility] [address] [place] [address] Marjorie Powell PA-C [address] [place] [address] Scheduled Procedures Name Priority Associated Diagnoses Date/Ti me COLONOSCOPY FLEXIBLE PROXIMAL DIAGNOSTIC Recall Colon cancer screening Health Maintenance Due Date Last Done Comments Cologuard 2000 Fecal Occult Blood Test 2000 Sigmoidoscopy 2000 Hepatitis B (1 of 3 - Risk 3-dose series) 2015 TSH 11/01/2023 11/01/2022, 12/25, 12/25/2020, Additional history exists HbA1c 01/24/2024 07/25/2023, 02/24, 02/11/2023, Additional history exists CKD PHOS USE SMARTSET 72740 02/12/202401/24, 01/07/2022, 03/12/2021, Additional history exists GFR 03/14/2024 09/13/2023, 08/26, 07/25/2023, Additional history exists Mammogram 04/21/2024 04/21/2023, 01/24, 10/01/2020, Additional history exists Diabetic Eye Exam 05/09/2024 05/09/2023, , 04/14/2021, Additional history exists Albumin/Creatinine Ratio 08/05/20242 023, 11/01/2022, 01/07/2022, Additional history exists CKD HGB USE SMARTSET 38251 09/13/202409/13, 09/13/2023, 07/25/2023, Additional history exists Depression [...] Documents on File Type Date Recorded Patient Shearing Machine Tender Expl anation POLST 03/19/2020 4:25 PM [...] patient have Health Care Power of Linen Manager? No Healthcare Agents on File Name Relationship Healthcare Agent Relationship Communication Lexii Camp Other - (no specific identity) Health Care Power of Linen Manager Princess Allen Other - (no specific identity) Health Care Power of Linen Manager Care Teams Reading Teacher Relationship Specialty Start Date End Date Lexii Andujar DO [address] [place] [address] PCP - General Internal Medicine 01/07/22 documented as of this encounter
--- OUTSIDE RECORDS SUMMARY | 2023-10-24 20:43 | External Medical Summary | Summary of Care ---
Author Name Unknown Organization [facility] Address [address] [place] [address] Phone [phone] Care Team Providers Care Global Sales Manager Name Role Phone PratimaGaldino DO Primary Care Provider [phone] Encounter Details Date Type Department Care Team (Late st Contact Info) Description 10/10/2023 Orders Only Outcomes Research Department [address] [place] [address] Mariam Mandujano CHRA MyCode Research Other*[id number] Allergies Active Allergy Reactions Criticality Noted Date [...] 7.0%-8.0% ([facility]) Inject 8 units with breakfast and 8units [...] by vascular, reports upcoming carotid surgery at [facility]. She states she has rx for atorvastatin and plavix to pickling solution maker at pharmacy. 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 Atherosclerosis of [place] co ronary artery without angina pectoris 12/31/2021 [...] Assessment & Plan: Home PT to start [place] filter in place 08/19/2014 History of pulmonary [...] evidently given by vascular, has to pickling solution maker rx documented as of this encounter [...] mRNA, LNP-s, No Pre serve, 2-Dose Series ([employer]) 01/08/2021,12/18/2020 COVID-19, LNP-s, No Preserve , Navarro-sucrose, Ages 12+ (Pfizer) 2022,10/01/2021 COVID-19, MRNA-LNP, 23-24, P F, 30 MCG/0.3 mL, 12 YRS AND ABOVE, IM (PFIZER-Comirnaty) 07/26/2023 Pneumococcal Conjugate Vacci ne, 20-valent ([id number]) 03/12/2022 Pneumococcal Polysaccharide PPV23 (Pneumovax) 08/22/2009,06/15/2006 Season [...] 8:50 AM EST Laboratory Lab Mobile Phlebotomy [facility] [address] [place] [address] [facility] Mobile Home Draw [address] [place] [address] 10/18/2023 1:00 PM EST Office Visit Family Practice [address] [place] [address] [address] [place] [phone] Galdino Andujar, [address] [place] [address] 10/18/2023 1:00 PM EST Pharmacy Family Practice [address] [place] [address] [address] [place] [address] College, Pharmacist [address] [address] 10/20/2023 12:30 PM EST Telemedicine Orthopaedics [facility] 132 [facility] [place] [address] Andrea Paez PA-C [address] [facility] 240 [place] [address] 10/24/2023 12:30 PM EST Home Visit [facility], [facility] 132 [facility] [place] [address] Vera Capellan, RN [address] [facility] [place] [address] 11/02/2023 1:00 PM EST Office Visit Nephrology, [facility] 200 [place] [address] Erik Lenz MD 200 [facility] [place] [address] 11/11/2023 2:00 PM EST Nurse Only Ancillary 65 [facility] 293 [place] [address] College, Nurse Annual Wellness Visit 65 [facility] 293 [place] [address] 01/11/2024 1:00 PM EDT Office Visit Cardiology, [facility] 132 [facility] [place] [address] Marjorie Powell, EVIN [facility] [place] [address] Scheduled Orders Name Type Priority Associated Diagnoses Orde r Schedule MYCODE SUBSEQUENT ADULT Lab Routine MyCode Research Other*[id number] Every 6 Months for 2 Occurrences starting 10/10/2023 until 10/29/2024 Scheduled Procedures Name Priority Associated Diagnoses Date/Ti me COLONOSCOPY FLEXIBLE PROXIMAL DIAGNOSTIC Recall Colon cancer screening Health Maintenance Due Date Last Done Comments Cologuard 2000 Fecal Occult Blood Test 2000 Sigmoidoscopy 2000 Hepatitis B (1 of 3 - Risk 3-dose series) 2015 TSH 11/01/2023 11/01/2022, 12/25, 12/25/2020, Additional history exists HbA1c 01/24/2024 07/25/2023, 02/24, 02/11/2023, Additional history exists CKD PHOS USE SMARTSET 69820 02/12/202401/24, 01/07/2022, 03/12/2021, Additional history exists GFR 03/14/2024 09/13/2023, 08/26, 07/25/2023, Additional history exists Mammogram 04/21/2024 04/21/2023, 01/24, 10/01/2020, Additional history exists Diabetic Eye Exam 05/09/2024 05/09/2023, , 04/14/2021, Additional history exists Albumin/Creatinine Ratio 08/05/2024 023, 11/01/2022, 01/07/2022, Additional history exists CKD HGB USE SMARTSET 65121 09/13/202409/13, 09/13/2023, 07/25/2023, Additional history exists Depression [...] this encounter Visit Diagnoses Diagnosis MyCode Research Other*[id number] documented in this encounter Advance Directives Documents on File Type Date Recorded Patient Glove Operator Expl anation POLST 03/19/2020 4:25 PM [...] the patient have Health Care Power of Real Estate Operations Manager? No Healthcare Agents on File Name Relationship Healthcare Agent Relationship Communication Galdino Camp Other - (no specific identity) Health Care Power of Real Estate Operations Manager Princess Allen Other - (no specific identity) Health Care Power of Real Estate Operations Manager Care Teams Global Sales Manager Relationship Specialty Start Date End Date Galdino Andujar DO [address] [place] [address] PCP - General Internal Medicine 01/07/22 documented as of this encounter
--- OUTSIDE RECORDS SUMMARY | 2023-10-24 20:43 | External Medical Summary ---
Author Name Unknown Address Unknown Organization K01:[facility] [address] [facility] [address] Laboratory Report Ordering Provider Test Date Status CONCEPCIÓN TREVIÑO 10/13/2023 11:13:00 Final Observation Date Value Abnormality Reference (Units ) Status MYCODE SPECIMEN-SST 10/13/2023 11:13:00 Freezing of extracted DNA, whole blood and/or serum. Final Performing Location [facility] - [address] [place] [address]
--- OUTSIDE RECORDS SUMMARY | 2023-10-24 20:43 | External Medical Summary | Summary of Care ---
Author Name Unknown Organization [facility] Address [address] [place] [address] Phone [phone] Care Team Providers Care Hoistman Name Role Phone Galdino Andujar DO Primary Care Provider [phone] Reason for Visit * Reason Onset Date Comments Advice 10/07/2023 Leg pain Information 10/07/202310/07 Encounter Details Date Type Department Care Team (Late st Contact Info) Description 10/07/2023 Telephone Family Practice 65 [facility] [address] [place] [phone] Galdino Andujar DO [address] [place] [address] Advice (Leg pain); Information (10/07) Allergies Active Allergy Reactions Criticality Noted Date [...] as of this encounter (statuses as of 10/07/2023) Medications Medication Sig Dispensed Refills Start Date [...] Dexcom G7 Sensor Use as directed. (From [facility]) 0 06/01/2023 Active Levothyroxine Sodium 200 MCG [...] ([facility]) INJECT 50 UNITS UNDER THE SKIN IN [...] as of this encounter (statuses as of 10/07/2023) Active Problems Problem Noted Date Diagnosed Date Morbid (severe) obesity due to excess calories 0 10/04/2023 Body mass index (BMI) of 45.0 to 49.9 in adult 1 10/08/2022 Overview: Per Obesity protocol - Per Obesity Taxonomy ICD-10 update of inactive term DM peripheral angiopathy 07/13/2023 Last Assessment & Plan: Now followed by vascular, reports upcoming carotid surgery at [facility]. She states she has rx for atorvastatin and plavix to picker machine operator at pharmacy. Type 2 [...] 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 Atherosclerosis of [place] co ronary artery without angina pectoris 12/31/2021 [...] Assessment & Plan: Home PT to start [place] filter in place 08/19/2014 History of pulmonary [...] evidently given by vascular, has to picker machine operator rx documented as of this encounter (statuses as of 10/07/2023) Resolved Problems Problem Noted Date Diagnosed Date [...] as of this encounter (statuses as of 10/07/2023) Immunizations Name Administration Dates Next Due COVID-19 mRNA, LNP-s, No Pre serve, 2-Dose Series ([employer]) 01/08/2021,12/18/2020 COVID-19, LNP-s, No Preserve , Navarro-sucrose, Ages 12+ (Pfizer) 2022,10/01/2021 COVID-19, MRNA-LNP, 23-24, P F, 30 MCG/0.3 mL, 12 YRS AND ABOVE, IM (PFIZER-Comirnaty) 07/26/2023 Pneumococcal Conjugate Vacci ne, 20-valent ([id number]) 03/12/2022 Pneumococcal Polysaccharide PPV23 (Pneumovax) 08/22/2009,06/15/2006 Season [...] Telephone Encounter - Shira Gross LPN - 10/07/2023 4:31 PM EST Patient states she is feeling a little better now but is shaky. Blood sugar is currently 163. * Telephone Encounter - Galdino Andujar DO - 10/07/2023 4:28 PM EST Patient is already on two narcotics There is no additional medication to add. Patient will need to return to the ED * Telephone Encounter - Eunice De La Torre RN - 10/07/2023 3:14 PM EST No acute nurse available to see patient today, provider for the region is on PTO [facility] does not have ability to go venous dopplers in the home, and no agency does home dopplers or ultrasounds anymore, they all have stopped doing them. Patient would have to call EMS or be driven to an ED Brandie De La Torre RN, BSN [facility] Intake Triage Coordinator [phone] * Telephone Encounter - Renato Evelin, LPN - 10/07/2023 1:15 PM EST Per V/O Dr Andujar can [facility] go to access patient? Is venous doppler available to [facility]? Thank you * Telephone Encounter - Shira Gross LPN - 10/07/2023 1:14 PM EST States at this point she can't walk, would need ems. States pain is "unreal". Thank you * Telephone Encounter - Irina Perrin OSA - 10/07/2023 1:12 PM EST Returned call * Telephone Encounter - Galdino Andujar DO - 10/07/2023 1:11 PM EST Check Venous Doppler to assess for DVT * Telephone Encounter - Flaca Springer LPN - 10/07/2023 11:04 AM EST Call placed to patient for details. Stated when she went to get up last night she had severe pain in her left foot/ankle. States she was unable to put weight on it. Took a tramadol with very minimal relief. States still painful to put weight on. Left ankle slightly swollen, painful to bend her toes. Reports very painful outer aspect of ankle. Denies injury. Using ice. Rates pain as 11/10. States she "can take a lot of pain, but this almost put her on the floor". * Telephone Encounter - Irina Vergara OSA - 10/07/2023 10:41 AM EST Pt left voicemail stating her leg/ankle/and foot are extremely painful and she is asking a someone call her back enmanuel. documented in this encounter Plan of Treatment Upcoming Encounters Date Type Department Care Team (Late st Contact Info) Description 10/08/2023 2:00 PM EST Scheduled Telephone [facility], [facility] 132 [facility] [place] [address] [facility], Nurse [facility] 132 [facility] [place] [address] 10/13/2023 8:50 AM EST Laboratory Lab Mobile Phlebotomy [facility] [address] [place] [address] [facility], [facility] Mobile Home Draw [address] [place], [place] [address] 10/18/2023 1:00 PM EST Office Visit Family Practice [address] [place] [address] [address] [place] [phone] Galdino Andujar, [address] [place] [address] 10/18/2023 1:00 PM EST Pharmacy Family Practice 65 [facility] [address] [place] [address] College, Pharmacist [address] [address] 10/20/2023 12:30 PM EST Telemedicine Orthopaedics [facility] 132 [facility] [address] Andrea Paez PA-C [address] [place] [address] 10/24/2023 12:30 PM EST Home Visit [facility], [facility] [address] [place] [address] Vera Capellan, RN [address] [place] [address] 11/02/2023 1:00 PM EST Office Visit Nephrology, [facility] 200 [facility] [place] [address] Erik Lenz MD 200 [facility] [place] [address] 11/11/2023 2:00 PM EST Nurse Only Ancillary 65 [facility] 293 [place] [address] College, Nurse Annual Wellness Visit [address] [address] 01/11/2024 1:00 PM EDT Office Visit Cardiology, [facility] [address] [place] [address] Marjorie Powell, PAMyraC 132 [facility] [place] [address] Scheduled Procedures Name Priority Associated Diagnoses Date/Ti me COLONOSCOPY FLEXIBLE PROXIMAL DIAGNOSTIC Recall Colon cancer screening Health Maintenance Due Date Last Done Comments Cologuard 2000 Fecal Occult Blood Test 2000 Sigmoidoscopy 2000 Hepatitis B (1 of 3 - Risk 3-dose series) 2015 TSH 11/01/2023 11/01/2022, 12/25, 12/25/2020, Additional history exists HbA1c 01/24/2024 07/25/2023, 02/24, 02/11/2023, Additional history exists CKD PHOS USE SMARTSET 58062 02/12/202401/24, 01/07/2022, 03/12/2021, Additional history exists GFR 03/14/2024 09/13/2023, 08/26, 07/25/2023, Additional history exists Mammogram 04/21/2024 04/21/2023, 01/24, 10/01/2020, Additional history exists Diabetic Eye Exam 05/09/2024 05/09/2023, , 04/14/2021, Additional history exists Albumin/Creatinine Ratio 08/05/2024 023, 11/01/2022, 01/07/2022, Additional history exists CKD HGB USE SMARTSET 77440 09/13/202409/13, 09/13/2023, 07/25/2023, Additional history exists Depression [...] Documents on File Type Date Recorded Patient Facility Examiner Expl anation POLST 03/19/2020 4:25 PM POLST [...] patient have Health Care Power of Medical Videographer? No Healthcare Agents on File Name Relationship Healthcare Agent Relationship Communication Galdino Camp Other - (no specific identity) Health Care Power of Medical Videographer Princess Other - (no specific identity) Health Care Power of Medical Videographer Care Teams Hoistman Relationship Specialty Start Date End Date Galdino Andujar DO 293 [place] [address] PCP - General Internal Medicine 01/07/22 documented as of this encounter
--- OUTSIDE RECORDS SUMMARY | 2023-10-24 20:43 | External Medical Summary | Summary of Care ---
Author Name Unknown Organization [facility] Address [address] [place] [address] Phone [phone] Care Team Providers Care Developmental Writing Instructor Name Role Phone Galdino Andujar DO Primary Care Provider [phone] Reason for Visit * Reason Onset Date Comments Advice 10/07/2023 Leg pain Information 10/07/202310/07 Encounter Details Date Type Department Care Team (Late st Contact Info) Description 10/07/2023 Telephone Family Practice 65 [facility] [place] [address] [place] [phone] Galdino Andujar DO [address] [place] [address] Advice (Leg pain); Information (10/07) [...] 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 Atherosclerosis of chemehuevi co ronary artery without angina pectoris 12/31/2021 [...] Assessment & Plan: Home PT to start Endeavor filter in place 08/19/2014 History of pulmonary [...] mRNA, LNP-s, No Pre serve, 2-Dose Series ([employer]) 01/08/2021,12/18/2020 COVID-19, LNP-s, No Preserve , Navarro-sucrose, Ages 12+ (Pfizer) 2022,10/01/2021 COVID-19, MRNA-LNP, 23-24, P F, 30 MCG/0.3 mL, 12 YRS AND ABOVE, IM (PFIZER-Comirnaty) 07/26/2023 Pneumococcal Conjugate Vacci ne, 20-valent ([id number]) 03/12/2022 Pneumococcal Polysaccharide PPV23 (Pneumovax) 08/22/2009,06/15/2006 Season [...] Encounter - Galdino Andujar DO - 10/07/2023 4:47 PM EST Noted * Telephone Encounter - Shira [...] to the ED * Telephone Encounter - Euniec De La Torre RN - 10/07/2023 3:14 PM EST No acute nurse available to see patient today, provider for the region is on PTO [facility] does not have ability to go venous dopplers in the home, and no agency does home dopplers or ultrasounds anymore, they all have stopped doing them. Patient would have to call EMS or be driven to an ED Brandie De La Torre RN, BSN [facility] Triage Coordinator [phone] * Telephone Encounter - Shira Gross LPN - 10/07/2023 1:15 PM EST Per [...] 2:00 PM EST Scheduled Telephone [facility] [place], [facility] 132 [facility] [place] [address] [facility], Nurse [facility] 132 [place] [address] 10/13/2023 8:50 AM EST Laboratory Lab Mobile Phlebotomy [facility] [address] [place] [address] [facility], [facility] Mobile Home Draw [address] [place] [address] 10/18/2023 1:00 PM EST Office Visit Family Practice [address] [place] [phone] Galdino Andujar DO [address] [place] [address] 10/18/2023 1:00 PM EST Pharmacy Family Practice [address] [place] [address] 293 [place] [phone] College, Pharmacist [address] [place] [address] 10/20/2023 12:30 PM EST Telemedicine Orthopaedics [facility] 132 [place] [address] Andrea Paez PA-C [address] [place] [address] 10/24/2023 12:30 PM EST Home Visit [facility], [facility] 132 [facility] [place] [address] Vera Capellan RN 132 [facility] [place] [address] 11/02/2023 1:00 PM EST Office Visit Nephrology, [facility] 200 [place] [address] Erik Lenz MD 200 [place] [address] 11/11/2023 2:00 PM EST Nurse Only Ancillary 65 [facility] [address] [place] [address] Gays, Nurse Annual Wellness Visit [address] [address] 01/11/2024 1:00 PM EDT Office Visit Cardiology, [facility] 132 [facility] [place] [address] Marjorie Powell PA-C 132 [facility] [address] Scheduled Procedures Name Priority Associated Diagnoses Date/Ti me COLONOSCOPY FLEXIBLE PROXIMAL DIAGNOSTIC Recall Colon cancer screening Health Maintenance Due Date Last Done Comments Cologuard 2000 Fecal Occult Blood Test 2000 Sigmoidoscopy 2000 Hepatitis B (1 of 3 - Risk 3-dose series) 2015 TSH 11/01/2023 11/01/2022, 12/25, 12/25/2020, Additional history exists HbA1c 01/24/2024 07/25/2023, 02/24, 02/11/2023, Additional history exists CKD PHOS USE SMARTSET 52268 02/12/202401/24, 01/07/2022, 03/12/2021, Additional history exists GFR 03/14/2024 09/13/2023, 08/26, 07/25/2023, Additional history exists Mammogram 04/21/2024 04/21/2023, 01/24, 10/01/2020, Additional history exists Diabetic Eye Exam 05/09/2024 05/09/2023, , 04/14/2021, Additional history exists Albumin/Creatinine Ratio 08/05/2024 023, 11/01/2022, 01/07/2022, Additional history exists CKD HGB USE SMARTSET 75036 09/13/202409/13, 09/13/2023, 07/25/2023, Additional history exists Depression [...] on File Type Date Recorded Patient Senior Ui Ux Designer Expl anation POLST 03/19/2020 4:25 PM POLST [...] the patient have Health Care Power of Job Printer? No Healthcare Agents on File Name Relationship Healthcare Agent Relationship Communication Galdino Camp Other - (no specific identity) Health Care Power of Job Printer Princess Other - (no specific identity) Health Care Power of Job Printer Care Teams Developmental Writing Instructor Relationship Specialty Start Date End Date Galdino Andujar DO 293 [facility] [place] [address] PCP - General Internal Medicine 01/07/22 documented as of this encounter
--- OUTSIDE RECORDS SUMMARY | 2023-10-24 20:43 | External Medical Summary ---
Author Name Unknown Address Unknown Organization K01:LABORATORY [facility] - [address] [place] [address] [place] [address] Laboratory Report Ordering Provider Test Date Status JAG SHULTZ 10/13/2023 11:13:00 Final Observation Date Value Abnormality Reference (Units ) Status TSH 10/13/2023 11:13:00 0.27 0.27-4.20 (uIU/mL) Final Performing Location LABORATORY C - [address] [place] [address]
--- OUTSIDE RECORDS SUMMARY | 2023-10-24 20:43 | External Medical Summary | Summary of Care ---
Author Name Unknown Organization [facility] Address [address] [place] [address] Phone [phone] Care Team Providers Care Tree Shear Operator Name Role Phone Galdino Andujar DO Primary Care Provider [phone] Reason for Visit * Reason Onset Date Comments Advice 10/07/2023 Leg pain Information 10/07/202310/07 Encounter Details Date Type Department Care Team (Late st Contact Info) Description 10/07/2023 Telephone Family Practice 65 [facility] [place] [address] [place] [phone] Galdino Andujar DO 293 [place] [address] Advice (Leg pain); Information (10/07) [...] of 7.0%-8.0% ([facility]) INJECT 50 UNITS UNDER THE [...] vascular, reports upcoming carotid surgery at [facility]. 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 Atherosclerosis of qagan tayagungin co ronary artery without angina pectoris 12/31/2021 [...] Assessment & Plan: Home PT to start Gregory filter in place 08/19/2014 History of [...] rx evidently given by vascular, has to merchandise pickup/receiving associate rx documented as of this encounter (statuses [...] mRNA, LNP-s, No Pre serve, 2-Dose Series ([employer]) 01/08/2021,12/18/2020 COVID-19, LNP-s, No Preserve , Navarro-sucrose, Ages 12+ (Pfizer) 2022,10/01/2021 COVID-19, MRNA-LNP, 23-24, P F, 30 MCG/0.3 mL, 12 YRS AND ABOVE, IM (PFIZER-Comirnaty) 07/26/2023 Pneumococcal Conjugate Vacci ne, 20-valent ([id number]) 03/12/2022 Pneumococcal Polysaccharide PPV23 (Pneumovax) 08/22/2009,06/15/2006 Season [...] provider for the region is on PTO [facility] does not have ability to go venous dopplers in the home, and no agency does home dopplers or ultrasounds anymore, they all have stopped doing them. Patient would have to call EMS or be driven to an ED Brandie De La Torre RN, BSN [facility] Intake Triage Coordinator [phone] * Telephone Encounter - Shira Gross LPN - 10/07/2023 1:15 PM EST Per V/O Dr Andujar can [facility] go to access patient? Is venous doppler available to [facility]? Thank you * Telephone Encounter - Renato Shira KochCHUYITA - 10/07/2023 1:14 PM EST States at [...] PM EST Scheduled Telephone [facility], [facility] [address] [place] [address] Region, Nurse [facility] [address] [place] [address] 10/13/2023 8:50 AM EST Laboratory Lab Mobile Phlebotomy [facility] [address] [place] [address] [facility], [facility] Mobile Home Draw [address] [place], [place] [phone] 10/18/2023 1:00 PM EST Office Visit Family Practice [address] [place] [address] [address] [place] [phone] Galdino Andujar DO 293 [place] [address] 10/18/2023 1:00 PM EST Pharmacy Family Practice [address] [place] [address] [address] [place] [phone] College, Pharmacist [address] [place] [address] 10/20/2023 12:30 PM EST Telemedicine Orthopaedics [facility] 132 [facility] [place] [address] Andrea Paez PA-C [address] [place] [address] 10/24/2023 12:30 PM EST Home Visit [facility], [facility] [address] [place] [address] Vera Capellan, LEXI 132 [facility] [place] [address] 11/02/2023 1:00 PM EST Office Visit Nephrology, Gregorio Jaycee [address] [place] [address] Erik Lenz MD [address] [place] [address] 11/11/2023 2:00 PM EST Nurse Only Ancillary 65 [facility] 293 [facility] [place] [address] College, Nurse Annual Wellness Visit 65 [facility] 293 [facility] [place] [address] 01/11/2024 1:00 PM EDT Office Visit Cardiology, [facility] 132 [address] [facility] [place] [address] Marjorie Powell, EVIN [address] [place] [address] Scheduled Procedures Name Priority Associated Diagnoses Date/Ti me COLONOSCOPY FLEXIBLE PROXIMAL DIAGNOSTIC Recall Colon cancer screening Health Maintenance Due Date Last Done Comments Cologuard 2000 Fecal Occult Blood Test 2000 Sigmoidoscopy 2000 Hepatitis B (1 of 3 - Risk 3-dose series) 2015 TSH 11/01/2023 11/01/2022, 12/25, 12/25/2020, Additional history exists HbA1c 01/24/2024 07/25/2023, 02/24, 02/11/2023, Additional history exists CKD PHOS USE SMARTSET 08880 02/12/202401/24, 01/07/2022, 03/12/2021, Additional history exists GFR 03/14/2024 09/13/2023, 08/26, 07/25/2023, Additional history exists Mammogram 04/21/2024 04/21/2023, 01/24, 10/01/2020, Additional history exists Diabetic Eye Exam 05/09/2024 05/09/2023, , 04/14/2021, Additional history exists Albumin/Creatinine Ratio 08/05/2024 023, 11/01/2022, 01/07/2022, Additional history exists CKD HGB USE SMARTSET 52210 09/13/202409/13, 09/13/2023, 07/25/2023, Additional history exists Depression [...] File Type Date Recorded Patient Security Systems Integrator Expl anation POLST 03/19/2020 4:25 PM POLST [...] patient have Health Care Power of Health Care Legal Assistant? No Healthcare Agents on File Name Relationship Healthcare Agent Relationship Communication Galdino Camp Other - (no specific identity) Health Care Power of Health Care Legal Assistant Princess Other - (no specific identity) Health Care Power of Health Care Legal Assistant Care Teams Tree Shear Operator Relationship Specialty Start Date End Date Galdino Andujar DO [address] [place] [address] PCP - General Internal Medicine 01/07/22 documented as of this encounter
--- OUTSIDE RECORDS SUMMARY | 2023-10-24 20:44 | External Medical Summary | Summary of Care ---
Author Name Unknown Organization [facility] Address [address] [place] [address] Phone [phone] Care Team Providers Care Electronic Scale Assembler And Tester Name Role Phone Galdino Andujar DO Primary Care Provider [phone] Reason for Visit * Reason Onset Date Comments Advice 10/07/2023 Leg pain Information 10/07/202310/07 Encounter Details Date Type Department Care Team (Late st Contact Info) Description 10/07/2023 Telephone Family Practice 65 [facility] [place] [address] [place] [phone] Galdino Andujar DO [address] [place] [address] Advice (Leg pain); Information (10/07) [...] 7.0%-8.0% ([facility]) INJECT 50 UNITS UNDER THE SKIN [...] by vascular, reports upcoming carotid surgery at [facility]. 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 Atherosclerosis of comanche co ronary artery without angina pectoris 12/31/2021 [...] Assessment & Plan: Home PT to start Seneca filter in place 08/19/2014 History of pulmonary [...] mRNA, LNP-s, No Pre serve, 2-Dose Series ([employer]) 01/08/2021,12/18/2020 COVID-19, LNP-s, No Preserve , Navarro-sucrose, Ages 12+ (Pfizer) 2022,10/01/2021 COVID-19, MRNA-LNP, 23-24, P F, 30 MCG/0.3 mL, 12 YRS AND ABOVE, IM (PFIZER-Comirnaty) 07/26/2023 Pneumococcal Conjugate Vacci ne, 20-valent ([id number]) 03/12/2022 Pneumococcal Polysaccharide PPV23 (Pneumovax) 08/22/2009,06/15/2006 Season [...] provider for the region is on PTO [facility] does not have ability to go venous dopplers in the home, and no agency does home dopplers or ultrasounds anymore, they all have stopped doing them. Patient would have to call EMS or be driven to an ED Brandie De La Torre RN, BSN [facility] Intake Triage Coordinator [phone] * Telephone Encounter - Shira Gross LPN [...] PM EST Scheduled Telephone [facility], [facility] 132 [facility] [place] [address] [facility], Nurse [facility] 132 [facility] [place] [address] 10/13/2023 8:50 AM EST Laboratory Lab Mobile Phlebotomy [facility] [address] [place] [address] [facility], [facility] Mobile Home Draw [address] [place] [address] 10/18/2023 1:00 PM EST Office Visit Family Practice 65 [facility] [address] [place] [phone] Galdino Andujar, 293 [place] [address] 10/18/2023 1:00 PM EST Pharmacy Family Practice 65 [facility] 293 [place] [phone] College, Pharmacist [address] [address] 10/20/2023 12:30 PM EST Telemedicine Orthopaedics [facility] 132 [place] [address] Andrea Paez PA-C [address] [place] [address] 10/24/2023 12:30 PM EST Home Visit [facility], [facility] 132 [facility] [place] [address] Vera Capellan, RN 132 [facility] [place] [address] 11/02/2023 1:00 PM EST Office Visit Nephrology, Greg[facility] Champion [address] [place], [place] [address] Erik Lenz MD 200 [facility] [place] [address] 11/11/2023 2:00 PM EST Nurse Only Ancillary 65 [address] [place], [place] [address] College, Nurse Annual Wellness Visit 65 [facility] 293 [facility], [place] [address] 01/11/2024 1:00 PM EDT Office Visit Cardiology, [facility] [address] [place] [address] Marjorie Powell PA-C [address] [place] [address] Scheduled Procedures Name Priority Associated Diagnoses Date/Ti me COLONOSCOPY FLEXIBLE PROXIMAL DIAGNOSTIC Recall Colon cancer screening Health Maintenance Due Date Last Done Comments Cologuard 2000 Fecal Occult Blood Test 2000 Sigmoidoscopy 2000 Hepatitis B (1 of 3 - Risk 3-dose series) 2015 TSH 11/01/2023 11/01/2022, 12/25, 12/25/2020, Additional history exists HbA1c 01/24/2024 07/25/2023, 02/24, 02/11/2023, Additional history exists CKD PHOS USE SMARTSET 70118 02/12/202401/24, 01/07/2022, 03/12/2021, Additional history exists GFR 03/14/2024 09/13/2023, 08/26, 07/25/2023, Additional history exists Mammogram 04/21/2024 04/21/2023, 01/24, 10/01/2020, Additional history exists Diabetic Eye Exam 05/09/2024 05/09/2023, , 04/14/2021, Additional history exists Albumin/Creatinine Ratio 08/05/20242 023, 11/01/2022, 01/07/2022, Additional history exists CKD HGB USE SMARTSET 56492 09/13/202409/13, 09/13/2023, 07/25/2023, Additional history exists Depression [...] File Type Date Recorded Patient E Commerce Merchant Expl anation POLST 03/19/2020 4:25 PM POLST [...] the patient have Health Care Power of Captain'S Assistant? No Healthcare Agents on File Name Relationship Healthcare Agent Relationship Communication Galdino Camp Other - (no specific identity) Health Care Power of Captain'S Assistant Princess Allen Other - (no specific identity) Health Care Power of Captain'S Assistant Care Teams Electronic Scale Assembler And Tester Relationship Specialty Start Date End Date Galdino Andujar DO [address] [place] [address] PCP - General Internal Medicine 01/07/22 documented as of this encounter
--- OUTSIDE RECORDS SUMMARY | 2023-10-24 20:44 | External Medical Summary | Summary of Care ---
Author Name Unknown Organization [facility] Address [address] [place] [address] Phone [phone] Care Team Providers Care Rubber Production Machine Operator Name Role Phone Galdino Andujar DO Primary Care Provider [phone] Reason for Visit * Reason Onset Date Comments [facility]: Maintenance 10/05/2023 Encounter Details Date Type Department Care Team (Late st Contact Info) Description 10/05/2023 2:30 PM EST Scheduled Telephone [facility], [facility] [address] [facility] [place] [address] [facility] [address] [facility] [place] [address] Allergies Active Allergy Reactions Criticality Noted Date [...] as of this encounter (statuses as of 10/05/2023) Medications Medication Sig Dispensed Refills Start Date [...] (Levoxyl)Indication s:Hyperparathyroidi sm, secondary renal ([facility]) Take 1 Tablet by mouth daily first [...] 7.0%-8.0% ([facility]) INJECT 50 UNITS UNDER THE [...] AT BEDTIME 60 Tablet 0 09/12/2023 Active Ciprofloxacin HCl 500 MG Oral Tablet (Cipro) Take 1 Tablet by mouth in the morning and 1 Tablet before bedtime. 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 Type 2 diabetes mellitus wit [...] rx evidently given by vascular, has to supervisor cap and hat production rx documented as of this encounter (statuses as of 10/05/2023) Resolved Problems Problem Noted Date Diagnosed Date [...] as of this encounter (statuses as of 10/05/2023) Immunizations Name Administration Dates Next Due COVID-19 mRNA, LNP-s, No Pre serve, 2-Dose Series (eYeka) 01/08/2021,12/18/2020 COVID-19, LNP-s, No Preserve , Navarro-sucrose, Ages 12+ (Pfizer) 2022,10/01/2021 COVID-19, MRNA-LNP, 23-24, P F, 30 MCG/0.3 mL, 12 YRS AND ABOVE, IM (PFIZER-Comirnaty) 07/26/2023 Pneumococcal Conjugate Vacci ne, 20-valent ([id number]) 03/12/2022 Pneumococcal Polysaccharide PPV23 (Pneumovax) 08/22/2009,06/15/2006 Season [...] Miscellaneous Notes * Telephone Encounter - Jennifer Sweet CM - 10/05/2023 10:05 AM EST Pt noted on SNF list. Pt was at [facility]. Pt dc home on 10/02. Patient scheduled for return hv tomorrow CW will route to care team as LINDA Sweet Station Master isinger at [email or web address] documented in this encounter Plan of Treatment Upcoming Encounters Date Type Department Care Team (Late st Contact Info) Description 10/06/2023 10:00 AM EST Home Visit [facility] at [place], [facility] 132 [place] [address] Vera Capellan, RN 132 [place] [address] 10/13/2023 8:50 AM EST Laboratory Lab Mobile Phlebotomy [facility] 100 [address] [facility] [place] [address] [facility], [facility] Mobile Home Draw [address] [place] [address] 10/18/2023 1:00 PM EST Office Visit Family Practice 65 [facility] 293 [place] [address] Galdino Andujar DO 293 [place] [address] 10/20/2023 12:30 PM EST Telemedicine Orthopaedics [facility] 132 [facility] [place] [address] Andrea Paez PA-C [address] [place] [address] 11/02/2023 1:00 PM EST Office Visit Nephrology, [facility] 200 [facility] [place] [address] Erik Lenz MD 200 [place] [address] 11/11/2023 2:00 PM EST Nurse Only Ancillary 65 [facility] 293 [place] [place] [address] College, Nurse Annual Wellness Visit [address] [place] [address] 01/11/2024 1:00 PM EDT Office Visit Cardiology, [facility] 132 [facility] [place] [address] Marjorie Powell PA-C [address] [place] [address] Scheduled Procedures Name Priority Associated Diagnoses Date/Ti me COLONOSCOPY FLEXIBLE PROXIMAL DIAGNOSTIC Recall Colon cancer screening Health Maintenance Due Date Last Done Comments Cologuard 2000 Fecal Occult Blood Test 2000 Sigmoidoscopy 2000 Hepatitis B (1 of 3 - Risk 3-dose series) 2015 TSH 11/01/2023 11/01/2022, 12/25, 12/25/2020, Additional history exists HbA1c 01/24/2024 07/25/2023, 02/24, 02/11/2023, Additional history exists CKD PHOS USE SMARTSET 29899 02/12/202401/24, 01/07/2022, 03/12/2021, Additional history exists GFR 03/14/2024 09/13/2023, 08/26, 07/25/2023, Additional history exists Mammogram 04/21/2024 04/21/2023, 01/24, 10/01/2020, Additional history exists Diabetic Eye Exam 05/09/2024 05/09/2023, , 04/14/2021, Additional history exists Albumin/Creatinine Ratio 08/05/2024 023, 11/01/2022, 01/07/2022, Additional history exists CKD HGB USE SMARTSET 79624 09/13/202409/13, 09/13/2023, 07/25/2023, Additional history exists Depression [...] Documents on File Type Date Recorded Patient Outplacement Consultant Andre echevarria POLST 03/19/2020 4:25 PM POLST [...] the patient have Health Care Power of Curriculum And Assessment Director? No Healthcare Agents on File Name Relationship Healthcare Agent Relationship Communication Galdino Camp Other - (no specific identity) Health Care Power of Curriculum And Assessment Director Princesseugene Allen Other - (no specific identity) Health Care Power of Curriculum And Assessment Director Care Teams Rubber Production Machine Operator Relationship Specialty Start Date End Date Galdino Andujar DO [address] [place] [address] PCP - General Internal Medicine 01/07/22 documented as of this encounter
--- OUTSIDE RECORDS SUMMARY | 2023-10-24 20:44 | External Medical Summary | Summary of Care ---
Author Name Unknown Organization [facility] Address [address] [place] [address] Phone [phone] Care Team Providers Care Metal Filer Name Role Phone Galdino Andujar DO Primary Care Provider [phone] Reason for Visit * Reason Onset Date Comments [facility]: Maintenance 10/05/2023 Encounter Details Date Type Department Care Team (Late st Contact Info) Description 10/05/2023 2:30 PM EST Scheduled Telephone [facility], [facility] [address] [facility] [place] [address] [facility] [address] [facility] [place] [address] Allergies Active Allergy Reactions Criticality Noted Date [...] Oral Tablet (Levoxyl)Indication s:Hyperparathyroidi sm, secondary renal ([facility]) Take 1 Tablet by mouth [...] 7.0%-8.0% ([facility]) INJECT 50 UNITS UNDER [...] by vascular, reports upcoming carotid surgery at [facility]. She states she has rx [...] 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 Atherosclerosis of [place] ronary artery without angina pectoris 12/31/2021 [...] mRNA, LNP-s, No Pre serve, 2-Dose Series (Valopaa) 01/08/2021,12/18/2020 COVID-19, LNP-s, No Preserve , Navarro-sucrose, Ages 12+ (Pfizer) 2022,10/01/2021 COVID-19, MRNA-LNP, 23-24, P F, 30 MCG/0.3 mL, 12 YRS AND ABOVE, IM (PFIZER-Comirnaty) 07/26/2023 Pneumococcal Conjugate Vacci ne, 20-valent ([id number]) 03/12/2022 Pneumococcal Polysaccharide PPV23 (Pneumovax) 08/22/2009,06/15/2006 Season [...] noted on SNF list. Pt was at [facility]. Pt dc home on 10/02. Patient scheduled for return hv tomorrow CW will route to care team as LINDA Sweet Director Food And Beverage [facility] [email or web address] documented in this encounter Plan of Treatment Upcoming Encounters Date Type Department Care Team (Late st Contact Info) Description 10/06/2023 10:00 AM EST Home Visit ising at [place], [facility] 132 [place] [address] Vera Capellan, RN 132 [place] [address] 10/13/2023 8:50 AM EST Laboratory Lab Mobile Phlebotomy [facility] [address] [facility] [place] [address] [facility] Mobile Home Draw [address] [place] [address] 10/18/2023 1:00 PM EST Office Visit Family Practice 65 [facility] [address] [place] [address] Galdino Andujar DO [address] [place] [address] 10/20/2023 12:30 PM EST Telemedicine Orthopaedics [facility] 132 [facility] [place] [address] Andrea Paez PA-C [address] [place] [address] 11/02/2023 1:00 PM EST Office Visit Nephrology, [facility] 200 [facility] [place] [address] Erik Lenz MD 200 [facility] [place] [address] 11/11/2023 2:00 PM EST Nurse Only Ancillary 65 [facility] 293 [place] [address] College, Nurse Annual Wellness Visit [address] [place] [address] 01/11/2024 1:00 PM EDT Office Visit Cardiology, [facility] 132 [facility] [place] [address] Marjorie Powell PA-C [address] [place] [address] Scheduled Procedures Name Priority Associated Diagnoses Date/Ti me COLONOSCOPY FLEXIBLE PROXIMAL DIAGNOSTIC Recall Colon cancer screening Health Maintenance Due Date Last Done Comments Cologuard 2000 Fecal Occult Blood Test 2000 Sigmoidoscopy 2000 Hepatitis B (1 of 3 - Risk 3-dose series) 2015 TSH 11/01/2023 11/01/2022, 12/25, 12/25/2020, Additional history exists HbA1c 01/24/2024 07/25/2023, 02/24, 02/11/2023, Additional history exists CKD PHOS USE SMARTSET 80358 02/12/202401/24, 01/07/2022, 03/12/2021, Additional history exists GFR 03/14/2024 09/13/2023, 08/26, 07/25/2023, Additional history exists Mammogram 04/21/2024 04/21/2023, 01/24, 10/01/2020, Additional history exists Diabetic Eye Exam 05/09/2024 05/09/2023, , 04/14/2021, Additional history exists Albumin/Creatinine Ratio 08/05/2024 023, 11/01/2022, 01/07/2022, Additional history exists CKD HGB USE SMARTSET 70623 09/13/202409/13, 09/13/2023, 07/25/2023, Additional history exists Depression [...] Documents on File Type Date Recorded Patient Outdoor Power Equipment Mechanic Andre echevarria POLST 03/19/2020 4:25 PM POLST [...] the patient have Health Care Power of Hose Maker? No Healthcare Agents on File Name Relationship Healthcare Agent Relationship Communication Galdino Camp Other - (no specific identity) Health Care Power of Hose Maker Princesseugene Allen Other - (no specific identity) Health Care Power of Hose Maker Care Teams Metal Filer Relationship Specialty Start Date End Date Galdino Andujar DO [address] [place] [address] PCP - General Internal Medicine 01/07/22 documented as of this encounter
--- OUTSIDE RECORDS SUMMARY | 2023-10-24 20:44 | External Medical Summary | Summary of Care ---
Author Name Unknown Organization [facility] Address [address] [place] [address] Phone [phone] Care Team Providers Care Local Company Hazmat Driver Name Role Phone Galdino Andujar DO Primary Care Provider [phone] Reason for Visit * Reason Onset Date Comments Appointment 10/04/2023 Encounter Details Date Type Department Care Team (Late st Contact Info) Description 10/04/2023 Telephone General Internal Medicine [facility] 200 [facility] [place] [address] Galdino Andujar DO [address] [place] [address] Appointment Allergies Active Allergy Reactions Criticality Noted [...] Use as directed. (From Jose Daniel) 0 3 Active Levothyroxine Sodium 200 MCG [...] AT BEDTIME 60 Tablet 0 3 Active Ciprofloxacin HCl 500 MG Oral Tablet (Cipro) Take 1 Tablet by mouth in the morning and 1 Tablet before bedtime. 0 4 10/05/19 24 Active polyethylene glycol 3350 119 gram OR POWD Take by mouth as needed for Constipation. 0 Active Eliquis 5 MG Oral Tablet (Apixaban) TAKE 1 TABLET BY MOUTH IN THE MORNING AND AT BEDTIME 60 Tablet 5 3 10/04/19 24 Discontinu ed(Medicat ion/Dose Changed) documented as of [...] reports upcoming carotid surgery at [facility]. She states she has rx for atorvastatin and plavix to belt picker at pharmacy. 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 Atherosclerosis of [place] co ronary artery without angina pectoris 12/31/2021 [...] Assessment & Plan: Home PT to start [place] filter in place 08/19/2014 History of [...] rx evidently given by vascular, has to belt picker rx documented as of this encounter [...] mRNA, LNP-s, No Pre serve, 2-Dose Series ([place] Infinite) 01/08/2021,12/18/2020 COVID-19, LNP-s, No Preserve , Navarro-sucrose, Ages 12+ (Pfizer) 2022,10/01/2021 COVID-19, MRNA-LNP, 23-24, P F, 30 MCG/0.3 mL, 12 YRS AND ABOVE, IM ([employer]ardLoop-Comirunc health nash) 07/26/2023 Pneumococcal Conjugate Vacci ne, 20-valent ([id number]) 03/12/2022 Pneumococcal Polysaccharide PPV23 (Pneumovax) 08/22/2009,06/15/2006 Season [...] encounter Miscellaneous Notes * Addendum Note - Anthony Dickey LPN - 10/05/2023 11:59 AM ESTAddended by: ANTHONY DICKEY on: 10/05/2023 11:59 AM Modules accepted: Orders * Telephone Encounter - Anthony Dickey LPN - 10/04/2023 3:15 PM EST Please contact pt to schedule hospital follow up per note below. Please make pt aware of lab order to be completed before appointment. Thanks. * Telephone Encounter - Tee Flowers RN - 10/04/2023 1:56 PM EST Patient discharged from [facility] 10/02/23. Nephrology consulted and recommends: hospital d/c appt w/ [facility] packaging engineer 3-4 wks after d/c w/ BMP drawn up to 5 days before OV and to be ordered by neph nurse. Please assist with these recommendations. Thank you documented in this encounter Plan of Treatment Upcoming Encounters Date Type Department Care Team (Louise Contact Info) Description 10/05/2023 2:30 PM EST Scheduled Telephone [facility], [facility] [address] [facility] [place] [address] Jennifer Sweet CM [address] [facility] [place] [address] 10/06/2023 10:00 AM EST Home Visit [facility], [facility] 132 [facility] [place] [address] Vera Capellan, RN 132 [place] [address] 10/13/2023 8:50 AM EST Laboratory Lab Mobile Phlebotomy [facility] [address] [place], [place] [phone] [facility], [facility] Mobile Home Draw [address] [place] [address] 10/18/2023 1:00 PM EST Office Visit Family Practice [address] [place] [address] 293 [place] [address] Galdino Andujar, 293 [place] [address] 10/20/2023 12:30 PM EST Telemedicine Orthopaedics [facility] 132 [facility] [place] [address] Andrea Paez PA-C [address] [place] [address] 11/02/2023 1:00 PM EST Office Visit Nephrology, [facility] 200 [facility] [place] [address] Erik Lenz MD 200 [facility] [place] [address] 11/11/2023 2:00 PM EST Nurse Only Ancillary 65 [facility] 293 [facility], [place] [address] College, Nurse Annual Wellness Visit 65 [facility] 293 [facility], [place] [address] 01/11/2024 1:00 PM EDT Office Visit Cardiology, [facility] [address] [place] [address] Marjorie Powell PA-C [address] [place] [address] Scheduled Procedures Name Priority Associated Diagnoses Date/Ti me COLONOSCOPY FLEXIBLE PROXIMAL DIAGNOSTIC Recall Colon cancer screening Health Maintenance Due Date Last Done Comments Cologuard 2000 Fecal Occult Blood Test 2000 Sigmoidoscopy 2000 Hepatitis B (1 of 3 - Risk 3-dose series) 2015 TSH 11/01/2023 11/01/2022, 12/25, 12/25/2020, Additional history exists HbA1c 01/24/2024 07/25/2023, 02/24, 02/11/2023, Additional history exists CKD PHOS USE SMARTSET 93143 02/12/202401/24, 01/07/2022, 03/12/2021, Additional history exists GFR 03/14/2024 09/13/2023, 08/26, 07/25/2023, Additional history exists Mammogram 04/21/2024 04/21/2023, 01/24, 10/01/2020, Additional history exists Diabetic Eye Exam 05/09/2024 05/09/2023, , 04/14/2021, Additional history exists Albumin/Creatinine Ratio 08/05/20242 023, 11/01/2022, 01/07/2022, Additional history exists CKD HGB USE SMARTSET 13530 09/13/202409/13, 09/13/2023, 07/25/2023, Additional history exists Depression [...] encounter Visit Diagnoses Diagnosis Chronic kidney disease, stage 3b (HCC)- Primary documented in this encounter Advance Directives Documents on File Type Date Recorded Patient Compressor Engineer Expl anation POLST 03/19/2020 4:25 PM [...] the patient have Health Care Power of Investment Counselor? No Healthcare Agents on File Name Relationship Healthcare Agent Relationship Communication Galdino Camp Other - (no specific identity) Health Care Power of Investment Counselor Princess Allen Other - (no specific identity) Health Care Power of Investment Counselor Care Teams Local Company Hazmat Driver Relationship Specialty Start Date End Date Galdino Andujar DO [address] [place] [address] PCP - General Internal Medicine 01/07/22 documented as of this encounter
--- OUTSIDE RECORDS SUMMARY | 2023-10-24 20:44 | External Medical Summary | Summary of Care ---
Author Name Unknown Organization [facility] Address [address] [place] [address] Phone [phone] Care Team Providers Care Grinding Room Supervisor Name Role Phone Galdino Andujar DO Primary Care Provider [phone] Reason for Visit * Reason Onset Date Comments Advice 10/07/2023 Leg pain Information 10/07/202310/07 Encounter Details Date Type Department Care Team (Late st Contact Info) Description 10/07/2023 Telephone Family Practice 65 [facility] [address] [place] [phone] Galdino Andujar DO [address] [place] [address] Advice (Leg pain); Information (10/07) [...] rx for atorvastatin and plavix to picker / packer at pharmacy. Type 2 diabetes mellitus wit [...] Assessment & Plan: Home PT to start [place] filter in place 08/19/2014 History of pulmonary [...] evidently given by vascular, has to picker / packer rx documented as of this encounter (statuses [...] mRNA, LNP-s, No Pre serve, 2-Dose Series (Fiber Options) 01/08/2021,12/18/2020 COVID-19, LNP-s, No Preserve , Navarro-sucrose, Ages 12+ (Pfizer) 2022,10/01/2021 COVID-19, MRNA-LNP, 23-24, P F, 30 MCG/0.3 mL, 12 YRS AND ABOVE, IM (PFIZER-Comirnaty) 07/26/2023 Pneumococcal Conjugate Vacci ne, 20-valent ([id number]) 03/12/2022 Pneumococcal Polysaccharide PPV23 (Pneumovax) 08/22/2009,06/15/2006 Season [...] provider for the region is on PTO [facility] does not have ability to go venous dopplers in the home, and no agency does home dopplers or ultrasounds anymore, they all have stopped doing them. Patient would have to call EMS or be driven to an ED Brandie De La Torre RN, BSN [facility] Intake Triage Coordinator [phone] * Telephone Encounter - Shira Gross LPN [...] PM EST Scheduled Telephone [facility], [facility] 132 [facility] [place] [address] [facility], Nurse [facility] 132 [facility] [place] [address] 10/13/2023 8:50 AM EST Laboratory Lab Mobile Phlebotomy [facility] [address] [place] [address] [facility] Mobile Home Draw [address] [place] [address] 10/18/2023 1:00 PM EST Office Visit Family Practice 65 [facility] [address] [place] [phone] Galdino Andujar, [address] [place] [address] 10/18/2023 1:00 PM EST Pharmacy Family Practice 65 [facility] [address] [place] [phone] College, Pharmacist [address] [address] 10/20/2023 12:30 PM EST Telemedicine Orthopaedics [facility] 132 [place] [address] Andrea Paez PA-C [address] [place] [address] 10/24/2023 12:30 PM EST Home Visit [facility], [facility] 132 [facility] [place] [address] Vera Capellan, RN 132 [place] [address] 11/02/2023 1:00 PM EST Office Visit Nephrology, Greg[facility] Champion 200 [address] Perez [place], [place] [address] Erik Lenz MD 200 [facility] [place] [address] 11/11/2023 2:00 PM EST Nurse Only Ancillary 65 [address] [place], [place] [address] College, Nurse Annual Wellness Visit 65 [facility] 293 [facility], [place] [address] 01/11/2024 1:00 PM EDT Office Visit Cardiology, [facility] [address] [place] [address] Marjorie Powell PA-C [address] [place] [address] Scheduled Procedures Name Priority Associated Diagnoses Date/Ti me COLONOSCOPY FLEXIBLE PROXIMAL DIAGNOSTIC Recall Colon cancer screening Health Maintenance Due Date Last Done Comments Cologuard 2000 Fecal Occult Blood Test 2000 Sigmoidoscopy 2000 Hepatitis B (1 of 3 - Risk 3-dose series) 2015 TSH 11/01/2023 11/01/2022, 12/25, 12/25/2020, Additional history exists HbA1c 01/24/2024 07/25/2023, 02/24, 02/11/2023, Additional history exists CKD PHOS USE SMARTSET 04597 02/12/202401/24, 01/07/2022, 03/12/2021, Additional history exists GFR 03/14/2024 09/13/2023, 08/26, 07/25/2023, Additional history exists Mammogram 04/21/2024 04/21/2023, 01/24, 10/01/2020, Additional history exists Diabetic Eye Exam 05/09/2024 05/09/2023, , 04/14/2021, Additional history exists Albumin/Creatinine Ratio 08/05/20242 023, 11/01/2022, 01/07/2022, Additional history exists CKD HGB USE SMARTSET 80453 09/13/202409/13, 09/13/2023, 07/25/2023, Additional history exists Depression [...] Documents on File Type Date Recorded Patient Sash Finisher Expl anation POLST 03/19/2020 4:25 PM [...] the patient have Health Care Power of Ops Manager? No Healthcare Agents on File Name Relationship Healthcare Agent Relationship Communication Galdino Camp Other - (no specific identity) Health Care Power of Ops Manager Princess Allen Other - (no specific identity) Health Care Power of Ops Manager Care Teams Grinding Room Supervisor Relationship Specialty Start Date End Date Galdino Andujar DO [address] [place] [address] PCP - General Internal Medicine 01/07/22 documented as of this encounter
--- OUTSIDE RECORDS SUMMARY | 2023-10-24 20:44 | External Medical Summary | Summary of Care ---
Author Name Unknown Organization [facility] Address [address] [place] [address] Phone [phone] Care Team Providers Care Buffing Line Set Up Worker Name Role Phone Galdino Andujar DO Primary Care Provider [phone] Reason for Visit * Reason Comments [facility]: Maintenance Encounter Details Date Type Department Care Team (Late st Contact Info) Description 10/06/2023 10:00 AM EST [facility] Visit [facility], [facility] [address] [place] [address] Vera Capellan, RN [address] [place] [address] Allergies Active Allergy Reactions Criticality Noted Date [...] as of this encounter (statuses as of 10/06/2023) Medications Medication Sig Dispensed Refills Start Date [...] as of this encounter (statuses as of 10/06/2023) Active Problems Problem Noted Date Diagnosed Date Morbid (severe) obesity due to excess calories 0 10/04/2023 Body mass index (BMI) of 45.0 to 49.9 in adult 1 10/08/2022 Overview: Per Obesity protocol - Per Obesity Taxonomy ICD-10 update of inactive term DM peripheral angiopathy 07/13/2023 Last Assessment & Plan: Now followed by vascular, reports upcoming carotid surgery at [facility]. She states she has rx for atorvastatin and plavix to brick picker at pharmacy. 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 Atherosclerosis of [place] co ronary artery without angina pectoris 12/31/2021 [...] rx evidently given by vascular, has to brick picker rx documented as of this encounter (statuses as of 10/06/2023) Resolved Problems Problem Noted Date Diagnosed Date [...] as of this encounter (statuses as of 10/06/2023) Immunizations Name Administration Dates Next Due COVID-19 mRNA, LNP-s, No Pre serve, 2-Dose Series ([employer]) 01/08/2021,12/18/2020 COVID-19, LNP-s, No Preserve , Navarro-sucrose, Ages 12+ (Pfizer) 2022,10/01/2021 COVID-19, MRNA-LNP, 23-24, P F, 30 MCG/0.3 mL, 12 YRS AND ABOVE, IM ([employer]) 07/26/2023 Pneumococcal Conjugate Vacci ne, 20-valent ([id number]) 03/12/2022 Pneumococcal Polysaccharide PPV23 (Pneumovax) 08/22/2009,06/15/2006 Season [...] money to buy more. Never true 10/04/19 Within the past 12 months, t he [...] Sign Reading Time Taken Comments Blood Pressure 102/64 10/06/2023 10:12 AM EST Pulse 90 10/06/2023 10:12 AM EST Temperature 36 C (96.8 F) 10/06/2023 10: 12 AM EST Respiratory Rate 18 10/06/2023 10:1 2 AM EST Oxygen Saturation 95% 10/06/2023 10: 12 AM EST o2 on at 3 l/min via nc Inhaled Oxygen Concentration - - Weight - - Height - - Body Mass Index - - documented in this encounter Progress Notes * Vera Capellan RN - 10/06/2023 9:29 AM EST [facility] Client Program Manager ROSA Visit Date: 10/06/2023 Time: 9:29 AM Name: Stephanie Camp : 1955 Current Concerns: Pt seen for ROSA #2 Admitted to [facility] 09/20 - 10/02/23 for right pyelonephritis, ELSIE Pt reports she had passed out in her bathroom, woke up and pressed her life alert button for the ambulance D/c home on cipro - has one day left and then completed course Saw PCP two days ago and labs attempted at that time - unsuccessful and requested attempt today Attempted x 2 of right wrist and right AC without success Does have mobile lab set up. - will keep this appt Eliquis dose was cut in half per pt Pt has pill packs from [facility] and is cutting the 5mg tabs in half until new packs come Pt reports she is fatigued and weak No new pain - has chronic back pain Urinating without issues Bowels moving regularly Eating and drinking as normal Getting home health PT and OT through [facility] Physical Exam: BP 102/64 | Pulse 90 | Temp 36 C (96.8 F) | Resp 18 | LMP 03/11/2003 [...] Negative. Respiratory: Positive for shortness of breath (AVENDAÑO- at baseline). Cardiovascular: Positive for leg swelling. Gastrointestinal: Negative. Genitourinary: Negative. Musculoskeletal: Positive for arthralgias, back pain and gait problem. Skin: Negative. Neurological: Positive for weakness (generalized). Psychiatric/Behavioral: Negative. Medication Reconciliation: (See medication list) Does patient take medications as ordered: Yes Patient Well Being: PHQ2/9: No questionnaires available. No change in living situation No falls since home from hospital [facility] Completed this Visit: Yes. [facility]: Reason Completed: Status post ED visit/hospital admission [facility] ([facility]) Fall Risk Assessment Tool Age 65+: Yes (10/06/23999) Diagnosis (3 or more co-existing): Yes (10/06/23999) Prior history of falls within 3 months: Yes (10/06/23999) Incontinence: Yes (10/06/23999) Visual impairment: No (10/06/23999) Impaired functional mobility: Yes (10/06/23999) Environmental hazards: Yes (10/06/23999) Poly Pharmacy (4 or more prescriptions - any type): Yes (10/06/23999) Pain affecting level of function: Yes (10/06/23999) Cognitive impairment: No (10/06/23999) Score - a score of 4 or more is considered at risk for fallin (10/06/23999) [facility]10 Interventions: Fall education provided, reviewed/provided Fall brochure Advanced Care Planning: POLST. Patient's Goals of Care: Feel better Reinforcement/Education: DIABETES: -Blood sugar testing schedule: [...] Continues meds as prescribed Pill packs from [facility] Continue to check blood sugars 4x a day MT for DM management Wear oxygen at 2 lmin via NC Low na diet Weight self daily via [facility] scale Compression stockings on in am, off in pm Keep all appts as scheduled Home Interventions Provided: Home Intervention: Other; eval Reinforced current Plan of Care, including self-management and medication regimen Patient's 'Red Flags': Increased SOB Wt up 3 lbs in 24 hrs or 5 lbs in one week Increased edema Feeling lightheaded or dizzy Patient Needs to Remember: Call [place] [...] emergent issues. Is the patient new to [facility] within the last 30 days? No, Assess appropriateness for upcoming telehealth visits. Cancel telehealth visits & schedule home visit with care steam table attendant(s)as indicated. Provider is in agreement with Plan of Care: Yes Scheduled to follow up with patient in 2 weeks. Vera Capellan RN 10/06/2023 9:29 AM documented in this encounter Plan of Treatment Upcoming Encounters Date Type Department Care Team (Late st Contact Info) Description 10/07/2023 7:40 AM EST Laboratory Laboratory [facility] [address] [place] [phone] [place], Lab Scenery [address] [place] [address] 10/13/2023 8:50 AM EST Laboratory Lab Mobile Phlebotomy [facility] [address] [place] [address] [facility], [facility] Mobile Home Draw [address] [place] [address] 10/18/2023 1:00 PM EST Office Visit Family Practice [address] [place] [address] [address] [place] [address] Galdino Andujar DO [address] [place] [address] 10/18/2023 1:00 PM EST Pharmacy Family Practice [address] [place] [address] [address] [place] [address] College, Pharmacist [address] [place] [address] 10/20/2023 12:30 PM EST Telemedicine Orthopaedics [facility] 132 [facility] [place] [address] Andrea Paez PA-C [address] [place] [address] 10/24/2023 12:30 PM EST [facility] 132 [facility] [place] [address] Vera Capellan RN 132 [facility] [place] [address] 11/02/2023 1:00 PM EST Office Visit Nephrology, Gregorio Champion 200 [facility] [place], [place] [address] Erik Lenz MD 200 [facility] [place], [place] [address] 11/11/2023 2:00 PM EST Nurse Only Ancillary 65 [facility] 293 [place] [place] [address] College, Nurse Annual Wellness Visit 65 [facility] 293 [facility] [place] [address] 01/11/2024 1:00 PM EDT Office Visit Cardiology, [facility] [address] [facility] [place] [address] Marjorie Powell, PADar [address] [place] [address] Scheduled Procedures Name Priority Associated Diagnoses Date/Ti me COLONOSCOPY FLEXIBLE PROXIMAL DIAGNOSTIC Recall Colon cancer screening Health Maintenance Due Date Last Done Comments Cologuard 2000 Fecal Occult Blood Test 2000 Sigmoidoscopy 2000 Hepatitis B (1 of 3 - Risk 3-dose series) 2015 TSH 11/01/2023 11/01/2022, 12/25, 12/25/2020, Additional history exists HbA1c 01/24/2024 07/25/2023, 02/24, 02/11/2023, Additional history exists CKD PHOS USE SMARTSET 55474 02/12/202401/24, 01/07/2022, 03/12/2021, Additional history exists GFR 03/14/2024 09/13/2023, 08/26, 07/25/2023, Additional history exists Mammogram 04/21/2024 04/21/2023, 01/24, 10/01/2020, Additional history exists Diabetic Eye Exam 05/09/2024 05/09/2023, , 04/14/2021, Additional history exists Albumin/Creatinine Ratio 08/05/2024 023, 11/01/2022, 01/07/2022, Additional history exists CKD HGB USE SMARTSET 63447 09/13/202409/13, 09/13/2023, 07/25/2023, Additional history exists Depression [...] Documents on File Type Date Recorded Patient Card Boxer Expl anation POLST 03/19/2020 4:25 PM POLST [...] the patient have Health Care Power of Care Center Manager? No Healthcare Agents on File Name Relationship Healthcare Agent Relationship Communication Galdino Camp Other - (no specific identity) Health Care Power of Care Center Manager Princess Allen Other - (no specific identity) Health Care Power of Care Center Manager Care Teams Buffing Line Set Up Worker Relationship Specialty Start Date End Date Galdino Andujar DO [address] [place] [address] PCP - General Internal Medicine 01/07/22 documented as of this encounter
--- OUTSIDE RECORDS SUMMARY | 2023-10-24 20:44 | External Medical Summary | Summary of Care ---
Author Name Unknown Organization [facility] Address [address] [place] [address] Phone [phone] Care Team Providers Care Packing Line Worker Name Role Phone Galdino Andujar DO Primary Care Provider [phone] Reason for Visit * Reason Onset Date Comments Advice 10/07/2023 Leg pain Information 10/07/202310/07 Encounter Details Date Type Department Care Team (Late st Contact Info) Description 10/07/2023 Telephone Family Practice 65 [facility] [place] [address] [place] [phone] Galdino Andujar DO [address] [place] [address] Advice (Leg pain); Information (10/07) [...] goal of 7.0%-8.0% ([facility]) INJECT 50 UNITS UNDER THE [...] has rx for atorvastatin and plavix to sisal picker at pharmacy. 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 Atherosclerosis of [place] co ronary artery without angina pectoris 12/31/2021 [...] Assessment & Plan: Home PT to start [place] filter in place 08/19/2014 History of pulmonary [...] rx evidently given by vascular, has to sisal picker rx documented as of this encounter [...] mRNA, LNP-s, No Pre serve, 2-Dose Series ([employer]) 01/08/2021,12/18/2020 COVID-19, LNP-s, No Preserve , Navarro-sucrose, Ages 12+ (Pfizer) 2022,10/01/2021 COVID-19, MRNA-LNP, 23-24, P F, 30 MCG/0.3 mL, 12 YRS AND ABOVE, IM (P[employer]ER-Comirnaty) 07/26/2023 Pneumococcal Conjugate Vacci ne, 20-valent ([id number]) 03/12/2022 Pneumococcal Polysaccharide PPV23 (Pneumovax) 08/22/2009,06/15/2006 Season [...] encounter Miscellaneous Notes * Telephone Encounter - Euince De La Torre RN - 10/07/2023 3:14 PM EST No acute nurse available to see patient today, provider for the region is on PTO [facility] does not have ability to go venous dopplers in the home, and no agency does home dopplers or ultrasounds anymore, they all have stopped doing them. Patient would have to call EMS or be driven to an ED Brandie De La Torre RN, BSN [facility] Intake Triage Coordinator [phone] * Telephone Encounter - Shira Gross LPN [...] PM EST Scheduled Telephone [facility], [facility] 132 [facility] [place] [address] [facility], Nurse [facility] 132 [facility] [place] [address] 10/13/2023 8:50 AM EST Laboratory Lab Mobile Phlebotomy [facility] [address] [place] [address] [facility], [facility] Mobile Home Draw [address] [place] [address] 10/18/2023 1:00 PM EST Office Visit Family Practice 65 [facility] [address] [place] [phone] Galdino Andujar, [address] [place] [address] 10/18/2023 1:00 PM EST Pharmacy Family Practice 65 [facility] [address] [place] [phone] College, Pharmacist [address] [address] 10/20/2023 12:30 PM EST Telemedicine Orthopaedics [facility] 132 [place] [address] Andrea Paez PA-C [address] [place] [address] 10/24/2023 12:30 PM EST Home Visit [facility], [facility] 132 [facility] [place] [address] Vera Capellan, RN 132 [facility] [address] 11/02/2023 1:00 PM EST Office Visit Nephrology, Gregorio Champion [address] [place], [place] [address] Erik Lenz MD 200 [facility] [place] [address] 11/11/2023 2:00 PM EST Nurse Only Ancillary [address] [place], [place] [address] College, Nurse Annual Wellness Visit 65 [facility] 293 [facility], [place] [address] 01/11/2024 1:00 PM EDT Office Visit Cardiology, [facility] [address] [place] [address] Marjorie Powell PA-C [address] [place] [address] Scheduled Procedures Name Priority Associated Diagnoses Date/Ti me COLONOSCOPY FLEXIBLE PROXIMAL DIAGNOSTIC Recall Colon cancer screening Health Maintenance Due Date Last Done Comments Cologuard 2000 Fecal Occult Blood Test 2000 Sigmoidoscopy 2000 Hepatitis B (1 of 3 - Risk 3-dose series) 2015 TSH 11/01/2023 11/01/2022, 12/25, 12/25/2020, Additional history exists HbA1c 01/24/2024 07/25/2023, 02/24, 02/11/2023, Additional history exists CKD PHOS USE SMARTSET 84622 02/12/202401/24, 01/07/2022, 03/12/2021, Additional history exists GFR 03/14/2024 09/13/2023, 08/26, 07/25/2023, Additional history exists Mammogram 04/21/2024 04/21/2023, 01/24, 10/01/2020, Additional history exists Diabetic Eye Exam 05/09/2024 05/09/2023, , 04/14/2021, Additional history exists Albumin/Creatinine Ratio 08/05/20242 023, 11/01/2022, 01/07/2022, Additional history exists CKD HGB USE SMARTSET 86997 09/13/202409/13, 09/13/2023, 07/25/2023, Additional history exists Depression [...] Documents on File Type Date Recorded 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 No Healthcare Agents on File Name Relationship Healthcare Agent Relationship Communication Galdino Camp Other - (no specific identity) Health Care Power of Exercise Science Instructor Princess Allen Other - (no specific identity) Health Care Power of Exercise Science Instructor Care Teams Packing Line Worker Relationship Specialty Start Date End Date Galdino Andujar DO [address] [place] [address] PCP - General Internal Medicine 01/07/22 documented as of this encounter
--- OUTSIDE RECORDS SUMMARY | 2023-10-24 20:44 | External Medical Summary | Summary of Care ---
Author Name Unknown Organization [facility] Address [address] [place] [address] Phone [phone] Care Team Providers Care Stove Polisher Name Role Phone Galdino Andujar DO Primary Care Provider [phone] Reason for Referral * Ancillary Services (Within 10 days (routine)) - Authorized Specialty Diagnoses / Procedures Referred By Contac t Referred To Contact Spring Fitter Helper Diagnoses Type 2 diabetes mellitus with stage 3b chronic kidney disease, with long-term current use of insulin (HCC) DM peripheral angiopathy (HCC) Chronic hypoxemic respiratory failure (HCC) Morbid (severe) obesity due to excess calories (HCC) ILD (interstitial lung disease) (HCC) Hyperparathyroidism, secondary renal (HCC) 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) Frank filter in place 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 Nga Comments Is Patient homebound? Yes All sections [...] on the next service day for the [facility] Home Phlebotomy does not service every geographical location on a daily basis. Contact [facility] Client Services at to find out service days for a specific location. Medical Laboratory Patient Name: Stephanie Camp : 1955 Sex: female Address [address] [facility] [address] [facility] [address] Provider: Self? Galdino Andujar DO? Diagnosis: N10 Acute pyelonephritis (primary encounter diagnosis) E11.22,N18.32,Z79.4 Type 2 diabetes mellitus with stage 3b chronic kidney disease, with long-term current use of insulin ([facility]) I13.0,I50.32,N18.32 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 3b chronic kidney disease (HCC) E11.51 DM peripheral angiopathy ([facility]) J96.11 Chronic hypoxemic respiratory failure ([facility]) E66.01 Morbid (severe) obesity due to excess calories ([facility]) J84.9 ILD (interstitial lung disease) ([facility]) N25.81 Hyperparathyroidism, secondary renal ([facility]) F33.1 Moderate episode of recurrent major depressive disorder ([facility]) D75.829 Heparin induced thrombocytopenia (HIT) ([facility]) F41.1 Anxiety state M46.1 Sacroiliitis, not elsewhere classified ([facility]) E78.5 Dyslipidemia I65.21 Carotid artery stenosis, asymptomatic, right E89.0 Postsurgical hypothyroidism Z86.711 History of pulmonary embolus (PE) M79.7 Fibromyalgia R26.9 Abnormality of gait G25.81 Restless legs syndrome M48.061 Spinal stenosis of lumbar region without neurogenic claudication M17.0 Primary osteoarthritis of both knees Z95.828 [place] filter in place D50.8 Other iron deficiency anemia E11.9 DM type 2 nursing care encounter ([facility]) L30.9 Dermatitis B37.31 Vaginal candidiasis Z09 Hospital discharge follow-up Tests Requested ALL LABS ORDERED BY DR ANDUJAR ON 10/04/2023 Reason for Visit * Reason Onset Date Comments Hospital Follow-Up Hospital Follow-Up 10/04/2023 Encounter Details Date Type Department Care Team (Latest Contact Info) Description 10/04/2023 3:00 PM EST Office Visit Family [facility] [address] [place] [address] [place] [address] Galdino Andujar, [address] [place] [address] Acute pyelonephritis*; Type 2 diabetes mellitus with stage 3b chronic kidney disease, with long-term current use of insulin (HCC); 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 3b chronic kidney disease (HCC); DM peripheral angiopathy (HCC); Chronic hypoxemic respiratory failure (HCC); Morbid (severe) obesity due to excess calories ([facility]); ILD (interstitial lung disease) ([facility]); Hyperparathyroidism, secondary renal ([facility]); Moderate episode of recurrent major depressive disorder ([facility]); Heparin induced thrombocytopenia (HIT) ([facility]); Anxiety state; Sacroiliitis, not elsewhere classified ([facility]); Dyslipidemia; Carotid artery stenosis, asymptomatic, right; Postsurgical hypothyroidism; History of pulmonary embolus (PE); Fibromyalgia; Abnormality of gait; Restless legs syndrome; Spinal stenosis of lumbar region without neurogenic claudication; Primary osteoarthritis of both knees; [place] filter in place; Other iron deficiency anemia; DM type 2 nursing care encounter ([facility]); Dermatitis; Vaginal candidiasis; Hospital discharge follow-up Allergies Active Allergy Reactions [...] ([facility]),Chronic diastolic congestive heart failure (HCC) TAKE 1 TABLET BY MOUTH IN THE MORNING AND AT BEDTIME 60 Tablet 5 3 Active Levothyroxine Sodium 50 MCG Oral Tablet (Levoxyl)Indication s:Hyperparathyroidi sm, secondary renal ([facility]) Take 1 Tablet by mouth daily first [...] goal of 7.0%-8.0% ([facility]) INJECT 50 UNITS UNDER THE SKIN [...] before bedtime. 60 Tablet 11 4 Active Eliquis 5 MG Oral Tablet (Apixaban) TAKE 1 TABLET BY MOUTH IN THE MORNING AND AT BEDTIME 60 Tablet 5 3 10/04/19 24 Discontinue d(Medicatio n/Dose Changed) Fluconazole 150 MG Oral Tablet (Diflucan)Indicatio ns:Vaginal candidiasis Take 1 Tablet by mouth once for 1 dose. 1 Tablet 0 4 10/04/19 24 documented as of this encounter (statuses as [...] by vascular, reports upcoming carotid surgery at [facility]. She states she has rx for atorvastatin and plavix to parts picker at pharmacy. Type 2 diabetes mellitus [...] Assessment & Plan: Home PT to start [place] filter in place 08/19/2014 History of pulmonary [...] rx evidently given by vascular, has to parts picker rx documented as of this encounter [...] mRNA, LNP-s, No Pre serve, 2-Dose Series (Pikanote) 01/08/2021,12/18/2020 COVID-19, LNP-s, No Preserve , Navarro-sucrose, Ages 12+ (Pfizer) 2022,10/01/2021 COVID-19, MRNA-LNP, 23-24, P F, 30 MCG/0.3 mL, 12 YRS AND ABOVE, IM (PFIZER-Comirnaty) 07/26/2023 Pneumococcal Conjugate Vacci ne, 20-valent ([id number]) 03/12/2022 Pneumococcal Polysaccharide PPV23 (Pneumovax) 08/22/2009,06/15/2006 Season [...] Reading Time Taken Comments Blood Pressure 120/62 10/04/2023 3:08 PM EST Pulse 91 10/04/2023 3:08 PM EST Temperature 35.7 C (96.2 F) 10/04/2023 3:08 PM ES T Respiratory Rate - - Oxygen Saturation 98% 10/04/2023 3:08 PM EST Inhaled Oxygen Concentration - - Weight 131.5 kg (289 lb 14.4 oz) 10/04/2023 3:08 PM EST Height - - Body Mass Index 48.24 09/13/2023 8:59 AM EST documented in this encounter Patient Instructions * Patient Instructions* Shira De La Rosa RN - 10/04/2023 3:36 PM EST Diabetes: Keeping Feet Healthy Inspect [...] calluses yourself. Talk to your doctor or vendor manager (a doctor who specializes in foot care) [...] the area doesnt appear to be healing. [id number] [employer], [address] [place] [address]. All rights reserved. This information is not intended as a substitute for professional medical care. Always follow your healthcare professional's instructions. documented in this encounter Progress Notes * Galdino Andujar, - 10/04/2023 3:58 PM EST SUBJECTIVE: Stephanie Camp is a 68 year old female. Chief Complaint Patient presents with Hospital Follow-Up Hospital Follow-Up Recent Admission: Patient was recently admitted to [facility]. The date of discharge was 10/02/2023. Discharge report received and reviewed. HPI: Patient [...] follow up. The patient was admitted to [facility] from 09/20/2023- 10/02/2023 due to right pyelonephritis. The patient had Klebsiella bacteremia and ELSIE as well. Renal function improved while hospitalized. Repeat blood cultures were negative. Cipro will be finished tomorrow. Patient has white vaginal drainage for a few days. Chronic anderson has worsened. Chronic shortness of breath is unchanged. Weight is stable and appetite is fair. Patient has bleeding from left arm cgm site that required removal of CGM and need ed pressure applied today Patient Active Problem List Diagnosis Code Dyslipidemia E78.5 Postsurgical hypothyroidism E89.0 ELISSA (obstructive sleep apnea) G47.33 Venous insufficiency I87.2 Essential hypertension with goal blood pressure less than 140/90 I10 History of pulmonary embolus (PE) Z86.711 Statin intolerance Z78.[address] [place] filter [address] Z95.828 Fibromyalgia M79.7 Abnormality of gait R26.9 Restless legs syndrome G25.81 Gastroesophageal reflux disease with esophagitis K21.00 Controlled substance agreement signed Z79.899 Lumbar radiculopathy M54.16 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 3b chronic kidney disease (HCC) I13.0, I50.32, N18.32 Hyperparathyroidism, secondary renal ([facility]) N25.81 Vasculitis ([facility]) I77.6 Primary osteoarthritis of left knee M17.12 Spinal stenosis of lumbar region without neurogenic claudication M48.061 Heparin induced thrombocytopenia (HIT) ([facility]) D75.829 Atherosclerosis of [place] coronary artery without angina pectoris I25.10 Carotid [...] not elsewhere classified ([facility]) M46.1 DM peripheral angiopathy ([facility]) E11.51 Body mass index (BMI) of 45.0 to 49.9 in adult ([facility]) Z68.42 Morbid (severe) obesity due to excess calories ([facility]) E66.01 Current Outpatient Medications Medication Sig Dispense Refill Dicyclomine HCl 20 MG Oral Tablet (Bentyl) Take 1 Tablet (20 mg) by mouth 4 times a day as needed for Cramping. 180 Tablet 3 Acetaminophen 500 MG Oral Tablet (Tylenol) [...] units BG > 150. 150 mL 3 Furosemide 40 MG Oral Tablet (Lasix) TAKE [...] TABLET BY MOUTH ONCE DAILY IN THE [id number] Tablet 5 Eliquis 5 MG Oral Tablet [...] MORNING AND AT BEDTIME 60 Tablet 0 Ciprofloxacin HCl 500 MG Oral Tablet (Cipro) Take 1 Tablet by mouth in the morning and 1 Tablet before bedtime. polyethylene glycol 3350 119 gram OR POWD Take by mouth as needed for Constipation. ONETOUCH DELICA LANCETS [...] G7 Sensor Use as directed. (From [facility]) BD Pen Needle Short U/F 31G [...] Other (Please comment) Passed out OBJECTIVE: BP 120/62 (BP Site: Left Arm, BP Position: Sitting, BP Cuff Size: Thigh) | Pulse 91 | Temp 35.7 C(96.2 F) | Wt 131.5 kg (289 lb 14.4 oz) | LMP 03/11/2003 | SpO2 98% | BMI 48.24 kg/m | BSA 2.46m REVIEW OF SYSTEMS: Review of Systems Constitutional: Positive for fatigue. Negative for chills, fever and unexpected weight change. HENT: Negative for congestion, sore throat and trouble swallowing. Respiratory: Positive for shortness of breath. Negative for cough and wheezing. Cardiovascular: Positive for leg swelling. Negative for chest pain and palpitations. Gastrointestinal: Negative for abdominal pain, blood in stool, constipation, diarrhea, nausea and vomiting. Genitourinary: Positive for vaginal discharge. Negative for dysuria and hematuria. Musculoskeletal: Positive for arthralgias, back pain and gait problem. Neurological: Negative for dizziness, syncope and headaches. Psychiatric/Behavioral: Positive for dysphoric mood. Negative for confusion, decreased concentration and sleep disturbance. PHYSICAL EXAM: BP 120/62 (BP Site: Left Arm, BP Position: Sitting, BP Cuff Size: Thigh) | Pulse 91 | Temp 35.7 C(96.2 F) | Wt 131.5 kg (289 lb 14.4 oz) | LMP 03/11/2003 | SpO2 98% | BMI 48.24 kg/m | BSA 2.46m Physical Exam Vitals and nursing note reviewed. [...] lower leg: Edema present. Skin: Comments: Maculopapular erythematous upper chest dermatitis is present Single puncture at left arm cgm site. Ecchymosis on all limbs. Neurological: Mental Status: She is alert. Mental status is at baseline. Motor: No weakness. Gait: Gait abnormal. Psychiatric: Mood and Affect: Mood is depressed. Affect is blunt and flat. Speech: Speech normal. Behavior: Behavior normal. Cognition and Memory: Cognition normal. ASSESSMENT: Acute pyelonephritis (Primary) Finish Cipro Type 2 diabetes mellitus with stage 3b chronic kidney disease, with long-term current use of insulin ([facility]) - COMPREHENSIVE METABOLIC PANEL; Future; Expected date: 10/04/2023 Continue Tresiba, Mounjaro, and Novolog Weight continues to decrease 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 3b chronic kidney disease (HCC) - COMPREHENSIVE METABOLIC PANEL; Future; Expected date: 10/04/2023 Continue Furosemide DM peripheral angiopathy (HCC) Chronic hypoxemic respiratory failure (HCC) Continue Oxygen Morbid (severe) obesity due to excess calories (HCC) ILD (interstitial lung disease) (HCC) Hyperparathyroidism, secondary renal (HCC) Moderate episode of recurrent major depressive disorder (HCC) Continue Duloxetine 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) Anxiety state Continue Clonazepam Sacroiliitis, not elsewhere classified (HCC) Dyslipidemia Carotid artery stenosis, asymptomatic, right Postsurgical hypothyroidism - TSH WITH FREE T4 IF INDICATED; Future; Expected date: 10/04/2023 History of pulmonary embolus (PE) Decrease Apixaban to 2.5 mg two times a day for DVT / PE prophylaxis Fibromyalgia Abnormality of gait Restless legs syndrome Spinal stenosis of lumbar region without neurogenic claudication Continue Oxycodone,Tramadol, Gabapentin, and Duloxetine Primary osteoarthritis of both knees Frank filter in place Other iron deficiency anemia - CBC WITH WBC DIFFERENTIAL; Future; Expected date: 10/04/2023 - IRON SCREEN, INCLUDING TIBC; Future; Expected date: 10/04/2023 - FERRITIN; Future; Expected date: 10/04/2023 - VITAMIN B12; Future; Expected date: 10/04/2023 - FOLIC ACID; Future; Expected date: 10/04/2023 - RETICULOCYTE PANEL; Future; Expected date: 10/04/2023 DM type 2 nursing care encounter (HCC) - DIABETES FOOT EXAM Dermatitis - Triamcinolone Acetonide 0.5 % External Cream (Aristocort); Apply topically to affected area 2 times a day. Chest rash Vaginal candidiasis - Fluconazole 150 MG Oral Tablet (Diflucan); Take 1 Tablet by mouth once for 1 dose. Hospital discharge follow-up - DISCH MED RECON CUR MED LIS Other orders - Apixaban 2.5 MG Oral Tablet (Eliquis); Take 1 Tablet by mouth in the morning and 1 Tablet before bedtime. Follow Up: Return in about 2 weeks (around 10/18/2023), or if symptoms worsen or fail to improve. I spent a total of 40-54 minutes (exact time 53 mins) minutes on the date of service in preparation, delivery, and documentation of the care provided to Stephanie Camp excluding any time spent in performance of separately billed services. Galdino Andujar DO * Shira De La Rosa RN - 10/04/2023 3:25 PM EST Hospital discharge ? Yeast infection-burning, itching, whitish/clumpy discharge. Itching on chest. Right upper arm-had placed a dexcom 7 sensor yesterday-has been bleeding excessively since-dressingremove and cleansed-pressure dressing applied. Bruising noted around sensor opening. Left forearm-IV site-open and bleeding small amount on and off-cleansed and neopsorin and bandaid applied. DM Foot Exam completed today. Provider aware. Shira De La Rosa RN Socks and Shoes Removed for Annual Diabetic Foot Screening RIGHT FOOT: Area of Concern: great toe nail-discolored, small cut on bottom of foot . RIGHT Dorsalis Pedis Pulse: Palpable RIGHT Posterior Tibial Pulse: Palpable RIGHT Monofilament:Patient reports difficulty feeling monofilament at Great toe- plantar surface, Ball of Foot-base of great toe, Ball of Foot-base of 3rd toe, and Ball of Foot-base of little toe LEFT FOOT: No Reddened, Cracking or Open Areas Noted. LEFT Dorsalis Pedis Pulse: Palpable LEFT Posterior Tibial Pulse: Palpable LEFT Monofilament:Patient reports feeling monofilament pressure on plantar surface of foot Do you need diabetic shoes: No * Frances Ellis RPh - 10/04/2023 3:01 PM EST Oxycodone before bed and tramadol during the day documented in this encounter Plan of Treatment Upcoming Encounters Date Type Department Care Team (Late st Contact Info) Description 10/05/2023 2:30 PM EST Scheduled Telephone [facility], [facility] [address] [facility] [address] Jennifer Sweet, [address] [facility] [place] [phone] 10/06/2023 10:00 AM EST Home Visit [facility] at [facility] [address] [facility] [place] [address] Vera Capellan, RN [address] [facility] [place] [address] 10/13/2023 8:50 AM EST Laboratory Lab Mobile Phlebotomy [facility] [address] [place] [address] [facility] Mobile Home Draw [address] [place] [address] 10/18/2023 1:00 PM EST Office Visit Family Practice [address] [facility] [address] [place] [address] Galdino Andujar, [address] [place] [address] 10/20/2023 12:30 PM EST Telemedicine Orthopaedics [facility] [address] [facility] [address] Andrea Paez PA-C [address] [place] [address] 11/11/2023 2:00 PM EST Nurse Only Ancillary [address] [facility] [address] [place] [address] College, Nurse Annual Wellness Visit [address] [place] [address] 01/11/2024 1:00 PM EDT Office Visit Cardiology, [facility] [address] [facility] [place] [address] Marjorie Powell PA-C [address] [employer] [place] [address] Scheduled Orders Name Type Priority Associated Diagnoses Orde r Schedule COMPREHENSIVE METABOLIC PANEL Lab Routine Type 2 diabetes mellitus with stage 3b chronic kidney disease, with long-term current use of insulin (HCC) 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 3b chronic kidney disease (HCC) Expected: 10/04/2023 (Approximate), Expires: 10/03/2024 CBC WITH WBC DIFFERENTIAL Lab Routine Other iron deficiency anemia Expected: 10/04/2023 (Approximate), Expires: 10/04/2024 IRON SCREEN, INCLUDING TIBC Lab Routine Other iron deficiency anemia Expected: 10/04/2023 (Approximate), Expires: 10/03/2024 FERRITIN Lab Routine Other iron deficiency anemia Expected: 10/04/2023 (Approximate), Expires: 10/03/2024 VITAMIN B12 Lab Routine Other iron deficiency anemia Expected: 10/04/2023 (Approximate), Expires: 10/03/2024 FOLIC ACID Lab Routine Other iron deficiency anemia Expected: 10/04/2023 (Approximate), Expires: 10/03/2024 RETICULOCYTE PANEL Lab Routine Other iron deficiency anemia Expected: 10/04/2023 (Approximate), Expires: 10/03/2024 TSH WITH FREE T4 IF INDICATED Lab Routine Postsurgical hypothyroidism Expected: 10/04/2023 (Approximate), Expires: 10/03/2024 Scheduled Procedures Name Priority Associated Diagnoses Date/Ti me COLONOSCOPY FLEXIBLE PROXIMAL DIAGNOSTIC Recall Colon cancer screening Scheduled Referrals Name Type Priority Associated Diagnoses Orde r Schedule HOME PHLEBOTOMY REFERRAL OP Referral Within 10 days (routine) Type 2 diabetes mellitus with stage 3b chronic kidney disease, with long-term current use of insulin (HCC) DM peripheral angiopathy (HCC) Chronic hypoxemic respiratory failure (HCC) Morbid (severe) obesity due to excess calories (HCC) ILD (interstitial lung disease) (HCC) Hyperparathyroidism, secondary renal (HCC) 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) [place] filter in place 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 3b chronic kidney disease (HCC) Abnormality of gait Spinal stenosis of lumbar region without neurogenic claudication Acute pyelonephritis Hospital discharge follow-up Ordered: 10/04/2023 Health Maintenance Due Date Last Done Comments Cologuard 2000 Fecal Occult Blood Test 2000 Sigmoidoscopy 2000 Hepatitis B (1 of 3 - Risk 3-dose series) 2015 TSH 11/01/2023 11/01/2022, 12/25, 12/25/2020, Additional history exists HbA1c 01/24/2024 07/25/2023, 02/24, 02/11/2023, Additional history exists CKD PHOS USE SMARTSET 11766 02/12/202401/24, 01/07/2022, 03/12/2021, Additional history exists GFR 03/14/2024 09/13/2023, 08/26, 07/25/2023, Additional history exists Mammogram 04/21/2024 04/21/2023, 01/24, 10/01/2020, Additional history exists Diabetic Eye Exam 05/09/2024 05/09/2023, , 04/14/2021, Additional history exists Albumin/Creatinine Ratio 08/05/2024 023, 11/01/2022, 01/07/2022, Additional history exists CKD HGB USE SMARTSET 09388 09/13/202409/13, 09/13/2023, 07/25/2023, Additional history exists Depression [...] of this encounter Visit Diagnoses Diagnosis Acute pyelonephritis- Primary Acute pyelonephritis without lesion of renal medullary necrosis Type 2 diabetes mellitus with stage 3b chronic kidney disease, with long-term current use of insulin (HCC) 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 3b chronic kidney disease (HCC) DM peripheral angiopathy ([facility]) Type II or unspecified type diabetes mellitus with peripheral circulatory disorders, not stated as uncontrolled Chronic hypoxemic respiratory failure (HCC) Chronic respiratory failure Morbid (severe) obesity due to excess calories (HCC) ILD (interstitial lung disease) ([facility]) Postinflammatory pulmonary fibrosis Hyperparathyroidism, secondary renal (HCC) Secondary hyperparathyroidism (of renal origin) Moderate episode of recurrent major depressive disorder ([facility]) 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) 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HIT) Anxiety state Anxiety state, unspecified Sacroiliitis, not elsewhere classified ([facility]) Sacroiliitis, not elsewhere classified Dyslipidemia Other and unspecified hyperlipidemia Carotid artery stenosis, asymptomatic, right Postsurgical hypothyroidism History of pulmonary embolus (PE) Personal history of pulmonary embolism Fibromyalgia Mylagia and myositis, unspecified Abnormality of gait Restless legs syndrome Restless legs syndrome (RLS) Spinal stenosis of lumbar region without neurogenic claudication Spinal stenosis, lumbar region, without neurogenic claudication Primary osteoarthritis of both knees Primary localized osteoarthrosis, lower leg [place] filter in place Other postprocedural status Other iron deficiency anemia DM type 2 nursing care encounter ([facility]) Type II or unspecified type diabetes mellitus without mention of complication, not stated as uncontrolled Dermatitis Contact dermatitis and other eczema, due to unspecified cause Vaginal candidiasis Candidiasis of vulva and vagina Hospital discharge follow-up Other follow-up examination documented in this encounter Advance Directives Documents on File Type Date Recorded Patient Weight Control Engineer Expl anation POLST 03/19/2020 4:25 PM [...] the patient have Health Care Power of Cognos Consultant? No Healthcare Agents on File Name Relationship Healthcare Agent Relationship Communication Galdino Camp Other - (no specific identity) Health Care Power of Cognos Consultant Princess Allen Other - (no specific identity) Health Care Power of Cognos Consultant Care Teams Stove Polisher Relationship Specialty Start Date End Date Galdino Andujar DO [address] [place] [address] PCP - General Internal Medicine 01/07/22 documented as of this encounter
--- OUTSIDE RECORDS SUMMARY | 2023-10-24 20:45 | External Medical Summary | Summary of Care ---
Author Name Unknown Organization [facility] Address [address] [place] [address] Phone [phone] Care Team Providers Care Consultative Sales Associate Name Role Phone Galdino Andujar DO Primary Care Provider [phone] Reason for Visit * Reason Onset Date Comments Medical Records Request 10/04/2023 Note erick Salazar Encounter Details Date Type Department Care Team (Late st Contact Info) Description 10/04/2023 Telephone Family Practice 65 [facility] [place] [address] [place] [phone] Galdino Andujar DO [address] [place], [place] [phone] Medical Records Request (Note from Martin) Allergies Active Allergy Reactions Criticality Noted Date [...] as of this encounter (statuses as of 10/04/2023) Medications Medication Sig Dispensed Refills Start Date [...] CKD stage 3 ([facility]),Chronic diastolic congestive heart failure (HCC) TAKE 1 TABLET BY MOUTH IN THE MORNING AND AT BEDTIME 60 Tablet 5 07/12/2023 Active Levothyroxine Sodium 50 MCG Oral Tablet (Levoxyl)Indication s:Hyperparathyroidi sm, secondary renal ([facility]) Take 1 Tablet by mouth daily [...] as of this encounter (statuses as of 10/04/2023) Active Problems Problem Noted Date Diagnosed Date [...] has rx for atorvastatin and plavix to crop picker at pharmacy. 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 Last Assessment & Plan: Planning to start atorvastatin, rx evidently given by vascular, has to crop picker rx documented as of this encounter (statuses as of 10/04/2023) Resolved Problems Problem Noted Date Diagnosed Date [...] with duloxetine, nortriptyline Thoracic back pain 07/25/2018 07/30/202 0 Overview: Acute. Vaginal karmen 07/13/2018 08/26/2018 [...] as of this encounter (statuses as of 10/04/2023) Immunizations Name Administration Dates Next Due COVID-19 mRNA, LNP-s, No Pre serve, 2-Dose Series ([employer]) 01/08/2021,12/18/2020 COVID-19, LNP-s, No Preserve , Navarro-sucrose, Ages 12+ (Pfizer) 2022,10/01/2021 COVID-19, MRNA-LNP, 23-24, P F, 30 MCG/0.3 mL, 12 YRS AND ABOVE, IM (PFIZER-Comirnaty) 07/26/2023 Pneumococcal Conjugate Vacci ne, 20-valent ([id number]) 03/12/2022 Pneumococcal Polysaccharide PPV23 (Pneumovax) 08/22/2009,06/15/2006 Season [...] Miscellaneous Notes * Telephone Encounter - Irina Perrin OSA - 10/04/2023 11:46 AM EST Arcadio from [facility] would like documentation sent to him power wheel chair Martin said the faxed an evaluation over in March for MD to sign. I do not see it. So he said he will just get a whole new eval done for her since she wasn't sure that the one in March would even work He will have a whole new one done documented in this encounter Plan of Treatment Upcoming Encounters Date Type Department Care Team (Late st Contact Info) Description 10/04/2023 3:00 PM EST Office Visit Family Practice [address] [phone] Galdino Andujar, [address] [place] [address] 10/04/2023 3:40 PM EST Pharmacy Family Practice 65 [facility] [address] [place] [address] College, Pharmacist [address] [address] 10/05/2023 2:30 PM EST Scheduled Telephone [facility], [facility] [address] [place] [address] Jennifer Sweet, [address] [place] [address] 10/06/2023 10:00 AM EST Home Visit [facility], [facility] [address] [place] [address] Vera Capellan, RN [address] [place] [address] 10/20/2023 12:30 PM EST Telemedicine Orthopaedics [facility] 132 [facility] [place] [address] Andrea Paez PA-C [address] [place] [phone] 11/11/2023 2:00 PM EST Nurse Only Ancillary 65 [facility] 293 [place] [address] College, Nurse Annual Wellness Visit [address] [address] 01/11/2024 1:00 PM EDT Office Visit Cardiology, [facility] 132 [facility] [place] [address] Marjorie Powell PA-C 132 [facility] [place] [address] Scheduled Procedures Name Priority Associated Diagnoses Date/Ti [...] Additional history exists CKD PHOS USE SMARTSET 07118 02/12/202401/24, 01/07/2022, 03/12/2021, Additional history exists GFR 03/14/2024 09/13/2023, 08/26, 07/25/2023, Additional history exists Mammogram 04/21/2024 04/21/2023, 01/24, 10/01/2020, Additional history exists Diabetic Eye Exam 05/09/2024 05/09/2023, , 04/14/2021, Additional history exists Albumin/Creatinine Ratio 08/05/2024 023, 11/01/2022, 01/07/2022, Additional history exists CKD HGB USE SMARTSET 32550 09/13/202409/13, 09/13/2023, 07/25/2023, Additional history exists Depression [...] on File Type Date Recorded Patient Field Reporter Expl anation POLST 03/19/2020 4:25 PM POLST [...] the patient have Health Care Power of Oracle Erp Architect? No Healthcare Agents on File Name Relationship Healthcare Agent Relationship Communication Galdino Camp Other - (no specific identity) Health Care Power of Oracle Erp Architect Princess Allen Other - (no specific identity) Health Care Power of Oracle Erp Architect Care Teams Consultative Sales Associate Relationship Specialty Start Date End Date Galdino Andujar DO [address] [place] [address] PCP - General Internal Medicine 01/07/22 documented as of this encounter
--- OUTSIDE RECORDS SUMMARY | 2023-10-24 20:45 | External Medical Summary | Summary of Care ---
Author Name Unknown Organization [facility] Address [address] [place] [address] Phone [phone] Care Team Providers Care Movement Therapist Name Role Phone Galdino Andujar DO Primary Care Provider [phone] Reason for Visit * Reason Onset Date Comments Hospital Follow-Up 10/03/2023 Encounter Details Date Type Department Care Team (Late st Contact Info) Description 10/03/2023 Telephone Family Practice 65 [facility] [place] [address] [place] [address] Galdino Andujar DO [address] [place] [address] Hospital Follow-Up Allergies Active Allergy Reactions Criticality Noted Date [...] as of this encounter (statuses as of 10/03/2023) Medications Medication Sig Dispensed Refills Start Date [...] Oral Tablet (Levoxyl)Indication s:Hyperparathyroidi sm, secondary renal ([facility]) Take 1 Tablet by mouth [...] goal of 7.0%-8.0% ([facility]) INJECT 50 UNITS UNDER THE [...] as of this encounter (statuses as of 10/03/2023) Active Problems Problem Noted Date Diagnosed Date Body mass index (BMI) of 45.0 to 49.9 in adult 1 10/08/2022 Overview: Per Obesity protocol - Per Obesity Taxonomy ICD-10 update of inactive term DM peripheral angiopathy 07/13/2023 Last Assessment & Plan: Now followed by vascular, reports upcoming carotid surgery at [facility]. She states she has rx for atorvastatin and plavix to cone picker at pharmacy. 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 Atherosclerosis of upper [place] co ronary artery without angina pectoris 12/31/2021 [...] Assessment & Plan: Home PT to start Bowie filter in place 08/19/2014 History of pulmonary [...] rx evidently given by vascular, has to cone picker rx documented as of this encounter (statuses as of 10/03/2023) Resolved Problems Problem Noted Date Diagnosed Date [...] as of this encounter (statuses as of 10/03/2023) Immunizations Name Administration Dates Next Due COVID-19 mRNA, LNP-s, No Pre serve, 2-Dose Series ([employer]) 01/08/2021,12/18/2020 COVID-19, LNP-s, No Preserve , Navarro-sucrose, Ages 12+ (Pfizer) 2022,10/01/2021 COVID-19, MRNA-LNP, 23-24, P F, 30 MCG/0.3 mL, 12 YRS AND ABOVE, IM ([facility]) 07/26/2023 Pneumococcal Conjugate Vacci ne, 20-valent ([id number]) 03/12/2022 Pneumococcal Polysaccharide PPV23 (Pneumovax) 08/22/2009,06/15/2006 Season [...] - Shira De La Rosa RN - 10/03/2023 3:43 PM EST Transitions of Care Note Reason for Referral:Recent Admission Phone visit for follow up: ROSA Admitted to: [facility], Date: 09/20/2023 Discharged to: home with home [facility], Date: 10/02/2023 Diagnosis driving hospitalization: Sepsis Klebsiella UTI Source/Contact: Patient SUBJECTIVE Consent: Verbal consent for review of hospital discharge: Yes REVIEW OF SYSTEMS Patient/Other Reports: Current patient/caregiver problems or concerns: Pt states she is doing ok. Feels tired and a littleachy but better than prior to going to the hospital. [facility] was there today and she will be starting Tuesday with PT. She finished her antibiotic today. She gets help through [employer]a girl comes 5 hours a week to help around the house, shopping, etc. Blood sugars running in the mid 100's. States her medicaid and SNAP was discontinued because she didn't get the paperwork in on time-asking if anyone here did that-told her she would have to call the assistance office and they would be able to assist her. States she may have a yeast infection-burning/itching- whitish, clumpy discharge-has follow up appt tomorrow with Dr Andujar. CV: Denies problems Pulmonary: Denies problems Chills/Sweats/Fever:Denies chills/sweats Denies fever Appetite:Denies problems such as nausea, vomiting, burning, decreased appetite Current diet: diabetic diet Bowel: denies problems Bladder: denies problems Wound (If applicable): N/A Pain:Denies Sleep:Denies problems FUNCTIONAL STATUS: ADL'S: Needs Assistance With:N/A as pt is independent IADL'S: Needs Assistance With:Grocery Shopping and Routine Housework Cognitive and Mental Health: denies problems, alert and oriented x 3, and able to communicate, understand instructions, process information. MEDICATION RECONCILIATION Medications: Discharge med list reviewed with patient or caregiver Reviewed and updated all prescription and OTC medications in Epic New medication(s) filled since hospitalization- ciprofloxcin 500 mg bid-finished today Reports all medications taken as prescribed. Denies side effects OBJECTIVE ASSESSMENT Medication Risk Assessment: Taking sedatives/hypnotics/narcotic analgesics and increased fall risk Did patient fail outpatient treatment? No Discharge instructions available for review? Yes PLAN Symptom Monitoring Interventions:Member/caregiver education - signs and symptoms to contact PrimaryCare (DO NOT DELETE-Three victoria symptoms patient is to report to PCP) 1. Chest pain/sob 2. Fever/n/v/d 3. Increased pain, weakness, urinary symptoms Electrician RefineryIntegrity Analyst of Care interventions/Action Plan: Medication reconciliation and 5 - 7 day follow-up with PCP in place - Date: 10/04/2023 Educated on role of ROSA completed with patient/caregiver. Educated patient/caregiver on patient right to have input on ROSA plan of care. Verification of Home Health/DME if indicated: YES [facility] Identified Care Gaps: Yes Care Gaps closed this call: Appointment made or confirmed, Medication adherence, Plan of care optimization, Post discharge appointment, and Transition of Care follow-up communication Re-evaluation of Plan of Care and progress towards goals achievement: Patient education this visit: Verbal, Scheduled follow up appt with Dr Andujar and pharmacist for 10/04/23. To call sooner with any problems or concerns. Discussed calling the assistance office to help continue her medicaid and SNAP. To call if fever returns, difficulty urinating or other problems. Plan to follow-up as previously scheduled, instructed to call Primary Care Provider with change in symptoms or as needed before next follow-up, discharge needs met, verbalizes understanding and agrees with plan. Shira De La Rosa RN * Telephone Encounter - Shira eD La Rosa RN - 10/03/2023 9:17 AM EST Transitions of Care Note Reason for Referral:Recent Admission Phone visit for follow up: ROSA Admitted to: [facility], Date: 09/20/2023 Discharged to: Home with Home Health Services, Date: 10/02/2023 Diagnosis driving hospitalization: Sepsis Klebsiella UTI Source/Contact: Patient [facility] currently with pt-told I would call back at a later time. documented in this encounter Plan of Treatment Upcoming Encounters Date Type Department Care Team (Late st Contact Info) Description 10/04/2023 3:00 PM EST Office Visit Family Practice [address] [place] [address] [address] [place] [phone] Galdino Andujar, [address] [place] [address] 10/04/2023 3:40 PM EST Pharmacy Family Practice [address] [place] [address] [address] [place] [phone] College, Pharmacist [address] [place] [address] 10/05/2023 2:30 PM EST Scheduled Telephone [facility], [facility] [address] [facility] [place] [address] Jennifer Sweet, [address] [facility] [place] [address] 10/06/2023 10:00 AM EST Home Visit [facility], [facility] 132 [facility] [place] [address] Vera Capellan, RN 132 [facility] [place] [address] 10/20/2023 12:30 PM EST Telemedicine Orthopaedics [facility] 132 [facility] [place] [address] Andrea Paez PA-C [address] [place] [address] 11/11/2023 2:00 PM EST Nurse Only Ancillary [address] [facility], [place] 293 [place] [address] College, Nurse Annual Wellness Visit [address] [facility] 293 [facility], [place] [address] 01/11/2024 1:00 PM EDT Office Visit Cardiology, [facility] [address] [place] [address] Marjorie Powell, EVIN [address] [place] [address] Scheduled Procedures Name Priority Associated Diagnoses Date/Ti [...] Additional history exists CKD PHOS USE SMARTSET 43118 02/12/202401/24, 01/07/2022, 03/12/2021, Additional history exists GFR 03/14/2024 09/13/2023, 08/26, 07/25/2023, Additional history exists Mammogram 04/21/2024 04/21/2023, 01/24, 10/01/2020, Additional history exists Diabetic Eye Exam 05/09/2024 05/09/2023, , 04/14/2021, Additional history exists Albumin/Creatinine Ratio 08/05/202408/05/2 023, 11/01/2022, 01/07/2022, Additional history exists CKD HGB USE SMARTSET 82773 09/13/202409/13, 09/13/2023, 07/25/2023, Additional history exists Depression [...] Documents on File Type Date Recorded Patient Weaving Inspector Expl anation POLST 03/19/2020 4:25 PM [...] the patient have Health Care Power of V Belt Mold Assembler And Curer? No Healthcare Agents on File Name Relationship Healthcare Agent Relationship Communication Galdino Camp Other - (no specific identity) Health Care Power of V Belt Mold Assembler And Curer Princess Staplesfany Other - (no specific identity) Health Care Power of V Belt Mold Assembler And Curer Care Teams Movement Therapist Relationship Specialty Start Date End Date Galdino Andujar DO [address] [place] [address] PCP - General Internal Medicine 01/07/22 documented as of this encounter
--- OUTSIDE RECORDS SUMMARY | 2023-10-24 20:45 | External Medical Summary | Summary of Care ---
Author Name Unknown Organization [facility] Address [address] [place] [address] Phone [phone] Care Team Providers Care Licensed Pharmacist Name Role Phone Galdino Andujar DO Primary Care Provider Reason for Visit * Reason Onset Date Comments Appointment 10/04/2023 Encounter Details Date Type Department Care Team (Late st Contact Info) Description 10/04/2023 Telephone General Internal Medicine [facility] [address] [facility] [place] [address] Galdino Andujar DO [address] [place] [address] Appointment Allergies Active Allergy Reactions Criticality Noted [...] mouth as needed for Constipation. 0 Active documented as of this encounter [...] vascular, reports upcoming carotid surgery at [facility]. She states she has rx for atorvastatin and plavix to pear picker at pharmacy. 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 Atherosclerosis of [place] co ronary artery without angina pectoris 12/31/2021 [...] rx evidently given by vascular, has to pear picker rx documented as of this encounter [...] mRNA, LNP-s, No Pre serve, 2-Dose Series ([employer]) 01/08/2021,12/18/2020 COVID-19, LNP-s, No Preserve , Navarro-sucrose, Ages 12+ (Pfizer) 2022,10/01/2021 COVID-19, MRNA-LNP, 23-24, P F, 30 MCG/0.3 mL, 12 YRS AND ABOVE, IM ([employer]) 07/26/2023 Pneumococcal Conjugate Vacci ne, 20-valent ([id number]) 03/12/2022 Pneumococcal Polysaccharide PPV23 (Pneumovax) 08/22/2009,06/15/2006 Season [...] encounter Miscellaneous Notes * Telephone Encounter - Kyeona Dickey LPN - 10/04/2023 3:15 PM EST Please contact pt to schedule hospital follow up per note below. Please make pt aware of lab order to be completed before appointment. Thanks. * Telephone Encounter - Tee Flowers RN - 10/04/2023 1:56 PM EST Patient discharged from [facility] 10/02/23. Nephrology consulted and recommends: hospital d/c appt w/ any [facility] estimate clerk 3-4 wks after d/c w/ BMP drawn up to 5 days before OV and to be ordered by neph nurse. Please assist with these recommendations. Thank you documented in this encounter Plan of Treatment Upcoming Encounters Date Type Department Care Team (Late st Contact Info) Description 10/04/2023 3:40 PM EST Pharmacy Family Practice 65 [facility] 293 [place] [address] College, Pharmacist [address] [place] [address] Arrived 10/05/2023 2:30 PM EST Scheduled Telephone [facility], [facility] [address] [facility] [place] [address] Jennifer Sweet, CM [address] [facility] [place] [address] 10/06/2023 10:00 AM EST Home Visit [facility], [facility] 132 [facility] [place] [address] Vera Capellan RN 132 [facility] [place] [address] 10/20/2023 12:30 PM EST Telemedicine Orthopaedics [facility] 132 [facility] [place] [address] Andrea Paez PA-C [address] [place] [address] 11/11/2023 2:00 PM EST Nurse Only Ancillary 65 [facility] 293 [facility], [place] [address] College, Nurse Annual Wellness Visit [address], [place] [address] 01/11/2024 1:00 PM EDT Office Visit Cardiology, [facility] 132 [facility] [place] [address] Marjorie Powell PA-C 132 [facility] [place] [address] Scheduled Orders Name Type Priority Associated Diagnoses Orde r Schedule BASIC METABOLIC PANEL Lab Routine Chronic kidney disease, stage 3b (HCC) Expected: 10/04/2023 (Approximate), Expires: 10/04/2024 Scheduled Procedures Name Priority Associated Diagnoses Date/Ti [...] Additional history exists CKD PHOS USE SMARTSET 56624 02/12/202401/24, 01/07/2022, 03/12/2021, Additional history exists GFR 03/14/2024 09/13/2023, 08/26, 07/25/2023, Additional history exists Mammogram 04/21/2024 04/21/2023, 01/24, 10/01/2020, Additional history exists Diabetic Eye Exam 05/09/2024 05/09/2023, , 04/14/2021, Additional history exists Albumin/Creatinine Ratio 08/05/2024 023, 11/01/2022, 01/07/2022, Additional history exists CKD HGB USE SMARTSET 65865 09/13/202409/13, 09/13/2023, 07/25/2023, Additional history exists Depression [...] Documents on File Type Date Recorded Patient Languages And Literature Instructor Expl anation POLST 03/19/2020 4:25 PM [...] the patient have Health Care Power of Hydrodynamicist? No Healthcare Agents on File Name Relationship Healthcare Agent Relationship Communication Galdino Camp Other - (no specific identity) Health Care Power of Hydrodynamicist Princess Other - (no specific identity) Health Care Power of Hydrodynamicist Care Teams Licensed Pharmacist Relationship Specialty Start Date End Date Galdino Andujar DO [address] [place] [address] PCP - General Internal Medicine 01/07/22 documented as of this encounter
--- OUTSIDE RECORDS SUMMARY | 2023-10-24 20:45 | External Medical Summary | Summary of Care ---
Author Name Unknown Organization [facility] Address [address] [place] [address] Phone [phone] Care Team Providers Care Home Care Music Therapist Name Role Phone ZiaandrewsGaldino DO Primary Care Provider [phone] Reason for Visit * Reason Onset Date Comments [facility]: Maintenance 09/30/2023 Encounter Details Date Type Department Care Team (Late st Contact Info) Description 09/30/2023 Telephone [facility], [facility] [address] [place] [address] [facility] Nurse [facility] [address] [place] [address] [facility]: Maintenance Allergies Active Allergy [...] as of this encounter (statuses as of 09/30/2023) Medications Medication Sig Dispensed Refills Start Date [...] (Levoxyl)Indication s:Hyperparathyroidi sm, secondary renal ([facility]) Take 1 Tablet by mouth daily [...] of 7.0%-8.0% ([facility]) INJECT 50 UNITS UNDER THE SKIN [...] as of this encounter (statuses as of 09/30/2023) Active Problems Problem Noted Date Diagnosed Date [...] 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 Atherosclerosis of lower [place] co ronary artery without angina pectoris 12/31/2021 [...] Assessment & Plan: Home PT to start [place] filter in place 08/19/2014 History of pulmonary [...] as of this encounter (statuses as of 09/30/2023) Resolved Problems Problem Noted Date Diagnosed Date [...] as of this encounter (statuses as of 09/30/2023) Immunizations Name Administration Dates Next Due COVID-19 mRNA, LNP-s, No Pre serve, 2-Dose Series ([employer]) 01/08/2021,12/18/2020 COVID-19, LNP-s, No Preserve , Navarro-sucrose, Ages 12+ (Pfizer) 2022,10/01/2021 COVID-19, MRNA-LNP, 23-24, P F, 30 MCG/0.3 mL, 12 YRS AND ABOVE, IM (PFIZER-Comirnaty) 07/26/2023 Pneumococcal Conjugate Vacci ne, 20-valent ([id number]) 03/12/2022 Pneumococcal Polysaccharide PPV23 (Pneumovax) 08/22/2009,06/15/2006 Season [...] Telephone Encounter - Lisandra Saucedo LPN - 09/30/2023 9:48 AM EST Per Christine patient d/c to [facility] Added to Jennifer sweet to follow d/c plan documented in this encounter Plan of Treatment Upcoming Encounters Date Type Department Care Team (Late st Contact Info) Description 10/05/2023 2:30 PM EST Scheduled Telephone [facility], [facility] [address] [facility] [place] [address] Jennifer Sweet, [address] [facility] [place] [address] 10/06/2023 10:00 AM EST Home Visit [facility], [facility] [address] [facility] [place] [address] Vera Capellan RN [address] [facility] [place] [address] 10/20/2023 12:30 PM EST Telemedicine Orthopaedics [facility] [address] [facility] [place] [address] Andrea Paez PA-C [address] [place] [address] 11/11/2023 2:00 PM EST Nurse Only Ancillary [facility] [address] [facility], Nurse Annual Wellness Visit [address] [facility], [place] [address] 01/11/2024 1:00 PM EDT Office Visit Cardiology, [facility] [address] [place] [address] Marjorie Powell, PADar [address] [place] [address] Scheduled Procedures Name Priority Associated Diagnoses Date/Ti [...] Additional history exists CKD PHOS USE SMARTSET 98925 02/12/202401/24, 01/07/2022, 03/12/2021, Additional history exists GFR 03/14/2024 09/13/2023, 08/26, 07/25/2023, Additional history exists Mammogram 04/21/2024 04/21/2023, 01/24, 10/01/2020, Additional history exists Diabetic Eye Exam 05/09/2024 05/09/2023, , 04/14/2021, Additional history exists Albumin/Creatinine Ratio 08/05/202408/05/2 023, 11/01/2022, 01/07/2022, Additional history exists CKD HGB USE SMARTSET 94382 09/13/202409/13, 09/13/2023, 07/25/2023, Additional history exists Depression [...] File Type Date Recorded Patient Registered Nurse Practitioner Expl anation POLST 03/19/2020 4:25 PM POLST [...] the patient have Health Care Power of Ammonia Nitrate Operator? No Healthcare Agents on File Name Relationship Healthcare Agent Relationship Communication Galdino Camp Other - (no specific identity) Health Care Power of Ammonia Nitrate Operator Princess Allen Other - (no specific identity) Health Care Power of Ammonia Nitrate Operator Care Teams Home Care Music Therapist Relationship Specialty Start Date End Date Galdino Andujar DO [address] [place] [address] PCP - General Internal Medicine 01/07/22 documented as of this encounter
--- OUTSIDE RECORDS SUMMARY | 2023-10-24 20:45 | External Medical Summary | Summary of Care ---
Author Name Unknown Organization [facility] Address [address] [place] [address] Phone [phone] Care Team Providers Care Lead Designer Name Role Phone Galdino Andujar DO Primary Care Provider [phone] Reason for Referral * Ancillary Services (Within 10 days (routine)) - Authorized Specialty Diagnoses / Procedures Referred By Contac t Referred To Contact Radiology Practitioner Assistant Diagnoses Type 2 diabetes mellitus with stage [...] Hospital discharge follow-up Galdino Andujar DO [address] [place] [address] Referral ID Status Reason Start Date Expiration Date Visits Requested Visits Authorized [id number] Authorized Ancillary Services Required 10/04/2023 999 999 [...] on the next service day for the [facility]lebotomy does not service every geographical location on a daily basis. Contact [facility] Client Services at to find out service days for a specific location. Medical Laboratory Patient Name: Stephanie Camp : 1955 Sex: female Address [address] [facility] [address] [facility] [address] Provider: Self? Galdino Andujar DO? Diagnosis: N10 Acute pyelonephritis (primary encounter diagnosis) E11.22,N18.32,Z79.4 Type 2 diabetes mellitus with stage 3b chronic kidney disease, with long-term current use of insulin ([facility]) I13.0,I50.32,N18.32 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 3b chronic kidney disease (HCC) E11.51 DM peripheral angiopathy ([facility]) J96.11 Chronic hypoxemic respiratory failure ([facility]) E66.01 Morbid (severe) obesity due to excess calories ([facility]) J84.9 ILD (interstitial lung disease) ([facility]) N25.81 Hyperparathyroidism, secondary renal ([facility]) F33.1 Moderate episode of recurrent major depressive disorder ([facility]) D75.829 Heparin induced thrombocytopenia (HIT) ([facility]) F41.1 Anxiety state M46.1 Sacroiliitis, not elsewhere classified ([facility]) E78.5 Dyslipidemia I65.21 Carotid artery stenosis, asymptomatic, right E89.0 Postsurgical hypothyroidism Z86.711 History of pulmonary embolus (PE) M79.7 Fibromyalgia R26.9 Abnormality of gait G25.81 Restless legs syndrome M48.061 Spinal stenosis of lumbar region without neurogenic claudication M17.0 Primary osteoarthritis of both knees Z95.[address] D50.8 Other iron deficiency anemia E11.9 DM type 2 nursing care encounter ([facility]) L30.9 Dermatitis B37.31 Vaginal candidiasis Z09 Hospital discharge follow-up Tests Requested ALL LABS ORDERED BY DR ANDUJAR ON 10/04/2023 Reason for Visit * Reason Onset Date Comments Hospital Follow-Up Hospital Follow-Up 10/04/2023 Encounter Details Date Type Department Care Team (Latest Contact Info) Description 10/04/2023 3:00 PM EST Office Visit Family [facility] [address] [place] [address] [place] [address] Galdino Andujar, [address] [place] [address] Acute pyelonephritis*; Type 2 diabetes mellitus with stage 3b chronic kidney disease, with long-term current use of insulin (HCC); 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 3b chronic kidney disease (HCC); DM peripheral angiopathy (HCC); Chronic hypoxemic respiratory failure (HCC); Morbid (severe) obesity due to excess calories ([facility]); ILD (interstitial lung disease) ([facility]); Hyperparathyroidism, secondary renal ([facility]); Moderate episode of recurrent major depressive disorder ([facility]); Heparin induced thrombocytopenia (HIT) ([facility]); Anxiety state; Sacroiliitis, not elsewhere classified ([facility]); Dyslipidemia; Carotid artery stenosis, asymptomatic, right; Postsurgical hypothyroidism; History of pulmonary embolus (PE); Fibromyalgia; Abnormality of gait; Restless legs syndrome; Spinal stenosis of lumbar region without neurogenic claudication; Primary osteoarthritis of both knees; [place] filter in place; Other iron deficiency anemia; DM type 2 nursing care encounter ([facility]); Dermatitis; Vaginal candidiasis; Hospital discharge follow-up Allergies [...] CKD stage 3 ([facility]),Chronic diastolic congestive heart failure (HCC) TAKE 1 TABLET BY MOUTH IN THE MORNING AND AT BEDTIME 60 Tablet 5 3 Active Levothyroxine Sodium 50 MCG Oral Tablet (Levoxyl)Indication s:Hyperparathyroidi sm, secondary renal ([facility]) Take 1 Tablet by mouth daily [...] 7.0%-8.0% ([facility]) INJECT 50 UNITS UNDER THE SKIN [...] mouth as needed for Constipation. 0 Active Fluconazole 150 MG Oral Tablet (Diflucan)Indicatio ns:Vaginal candidiasis Take 1 Tablet by mouth once for 1 dose. 1 Tablet 0 4 10/04/19 24 Active Triamcinolone Acetonide 0.5 % External Cream [...] carotid surgery at [facility]. She states she has rx for atorvastatin [...] 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 Atherosclerosis of [place] co ronary artery without angina pectoris 12/31/2021 [...] mRNA, LNP-s, No Pre serve, 2-Dose Series ([employer]) 01/08/2021,12/18/2020 COVID-19, LNP-s, No Preserve , Navarro-sucrose, Ages 12+ (Pfizer) 2022,10/01/2021 COVID-19, MRNA-LNP, 23-24, P F, 30 MCG/0.3 mL, 12 YRS AND ABOVE, IM (PFIZER-Comirnaty) 07/26/2023 Pneumococcal Conjugate Vacci ne, 20-valent ([id number]) 03/12/2022 Pneumococcal Polysaccharide PPV23 (Pneumovax) 08/22/2009,06/15/2006 Season [...] calluses yourself. Talk to your doctor or asphalt coater (a doctor who specializes in foot care) [...] the area doesnt appear to be healing. [phone] [employer], [address] [place] [address]. All rights reserved. This information is not intended as a substitute for professional medical care. Always follow your healthcare professional's instructions. documented in this encounter Progress Notes * Galdino Andujar, - 10/04/2023 3:58 PM EST SUBJECTIVE: Stephanie Camp is a 68 year old female. Chief Complaint Patient presents with Hospital Follow-Up Hospital Follow-Up Recent Admission: Patient was recently admitted to [facility]. The date of discharge was 10/02/2023. Discharge [...] follow up. The patient was admitted to [facility] from 09/20/2023- 10/02/2023 due to right pyelonephritis. [...] (HCC) I13.0, I50.32, N18.32 Hyperparathyroidism, secondary renal ([facility]) N25.81 Vasculitis ([facility]) I77.6 Primary osteoarthritis of left knee M17.12 Spinal stenosis of lumbar region without neurogenic claudication M48.061 Heparin induced thrombocytopenia (HIT) ([facility]) D75.829 Atherosclerosis of [place] coronary artery without angina pectoris I25.10 Carotid artery stenosis, asymptomatic, right I65.21 Encounter for long-term (current) use of other medications Z79.899 Type 2 diabetes mellitus with hemoglobin A1c goal of less than 8.0% ([facility]) E11.9 Recurrent deep vein thrombosis (DVT) of both lower extremities ([facility]) I82.403 Chronic hypoxemic respiratory failure ([facility]) J96.11 Chronic kidney disease, stage 3b ([facility]) N18.32 ILD (interstitial lung disease) ([facility]) J84.9 Moderate episode of recurrent major depressive disorder ([facility]) F33.1 Primary osteoarthritis of both knees M17.0 Type 2 diabetes mellitus with stage 3b chronic kidney disease, with long-term current use of insulin ([facility]) E11.22, N18.32, Z79.4 Anxiety state F41.1 Sacroiliitis, not elsewhere classified ([facility]) M46.1 DM peripheral angiopathy ([facility]) E11.51 Body mass index (BMI) of 45.0 to 49.9 in adult ([facility]) Z68.42 Morbid (severe) obesity due to excess calories ([facility]) E66.01 Current Outpatient Medications Medication Sig Dispense [...] TABLET BY MOUTH ONCE DAILY IN THE [id number] Tablet 5 Eliquis 5 MG Oral Tablet [...] needed for Constipation. ONETOUCH DELICA LANCETS [address] [facility] Check blood sugars 3-4 times daily 180 [...] G7 Sensor Use as directed. (From [facility]) BD Pen Needle Short U/F 31G X [...] 98% | BMI 48.24 kg/m | BSA 2.46 m Physical Exam Vitals and nursing note [...] of insulin ([facility]) - COMPREHENSIVE METABOLIC PANEL; Future; Expected date: [...] (HCC) Continue Duloxetine Heparin induced thrombocytopenia (HIT) ([facility]) Anxiety state Continue Clonazepam Sacroiliitis, not elsewhere [...] need diabetic shoes: No * Frances Ellis [facility] - 10/04/2023 3:01 PM EST Oxycodone before bed and tramadol during the day documented in this encounter Plan of Treatment Upcoming Encounters Date Type Department Care Team (Late st Contact Info) Description 10/05/2023 2:30 PM EST Scheduled Telephone [facility], [facility] [address] [facility] [place] [address] Jennifer Sweet, [address] [facility] [place] [id number] 10/06/2023 10:00 AM EST Home Visit [facility], [facility] [address] [facility] [place] [address] Vera Capellan, RN [address] [facility] [place] [address] 10/18/2023 1:00 PM EST Office Visit Family Practice [address] [facility] [address] [place] [address] Galdino Andujar, [address] [place] [address] 10/20/2023 12:30 PM EST Telemedicine Orthopaedics [facility] [address] [facility] [place] [address] Andrea Paez PA-C [address] [place] [address] 11/11/2023 2:00 PM EST Nurse Only Ancillary [address], [place] [address] College, Nurse Annual Wellness Visit [address] [place] [address], [place] [address] 01/11/2024 1:00 PM EDT Office Visit Cardiology, [facility] [address] [facility] [place] [address] Marjorie Powell PA-C [address] [facility] [place] [address] Scheduled Orders Name Type Priority Associated Diagnoses [...] renal (HCC) 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) [place] filter in place Hypertensive heart and kidney [...] Additional history exists CKD PHOS USE SMARTSET 44440 02/12/202401/24, 01/07/2022, 03/12/2021, Additional history exists GFR 03/14/2024 09/13/2023, 08/26, 07/25/2023, Additional history exists Mammogram 04/21/2024 04/21/2023, 01/24, 10/01/2020, Additional history exists Diabetic Eye Exam 05/09/2024 05/09/2023, , 04/14/2021, Additional history exists Albumin/Creatinine Ratio 08/05/2024 023, 11/01/2022, 01/07/2022, Additional history exists CKD HGB USE SMARTSET 07892 09/13/202409/13, 09/13/2023, 07/25/2023, Additional history exists Depression Screening 09/13/2024 10/04/2023, 06/12/20 18 Diabetic Foot Exam 10/04/2024 [...] chronic kidney disease (HCC) DM peripheral angiopathy (HCC) Type II or unspecified type diabetes mellitus with peripheral circulatory disorders, not stated as uncontrolled Chronic hypoxemic respiratory failure (HCC) Chronic respiratory failure Morbid (severe) obesity due to excess calories (HCC) ILD (interstitial lung disease) (HCC) Postinflammatory pulmonary fibrosis Hyperparathyroidism, secondary renal (HCC) Secondary hyperparathyroidism (of renal origin) Moderate episode of recurrent major depressive disorder (HCC) 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) 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HIT) Anxiety state Anxiety state, unspecified Sacroiliitis, not elsewhere classified (HCC) Sacroiliitis, not elsewhere classified Dyslipidemia Other and [...] both knees Primary localized osteoarthrosis, lower leg Frank filter in place Other postprocedural status Other iron deficiency anemia DM type 2 nursing care encounter (HCC) Type II or unspecified type diabetes mellitus without mention of complication, not stated as uncontrolled Dermatitis Contact dermatitis and other eczema, due to unspecified cause Vaginal candidiasis Candidiasis of vulva and vagina Hospital discharge follow-up Other follow-up examination documented in this encounter Advance Directives Documents on File Type Date Recorded Patient Manager Quality Expl anation POLST 03/19/2020 4:25 PM POLST [...] the patient have Health Care Power of Palletizer Operator? No Healthcare Agents on File Name Relationship Healthcare Agent Relationship Communication Galdino Camp Other - (no specific identity) Health Care Power of Palletizer Operator Princess Allen Other - (no specific identity) Health Care Power of Palletizer Operator Care Teams Lead Designer Relationship Specialty Start Date End Date Galdino Andujar DO [address] [place] [address] PCP - General Internal Medicine 01/07/22 documented as of this encounter
--- OUTSIDE RECORDS SUMMARY | 2023-10-24 20:46 | External Medical Summary | Summary of Care ---
Author Name Unknown Organization [facility] Address [address] [place] [address] Phone [phone] Care Team Providers Care Supervisor Fruit Grading Name Role Phone Galdino Andujar DO Primary Care Provider [phone] Encounter Details Date Type Department Care Team (Latest Contact Info) Description 09/09/2023 3:00 PM EST [facility] [address] [place] [address] Sathish Lundberg PA-C [address] [facility] [place] [address] H/O transcarotid artery revascularization (TCAR)*; Hypertensive heart [...] as of this encounter (statuses as of 09/22/2023) Medications Medication Sig Dispensed Refills Start Date End Date Status VALENTINAOBEYGRABIEL BISWAS LANCBETTY 33G [facility] [...] A1c goal of 7.0%-8.0% ([facility]) Inject 8 units with breakfast and [...] A1c goal of 7.0%-8.0% ([facility]) INJECT 50 UNITS UNDER THE SKIN [...] as of this encounter (statuses as of 09/22/2023) Active Problems Problem Noted Date Diagnosed Date Body mass index (BMI) of 45.0 to 49.9 in adult 1 10/08/2022 Overview: Per Obesity protocol - Per Obesity Taxonomy ICD-10 update of inactive term DM peripheral angiopathy 07/13/2023 Last Assessment & Plan: Now followed by vascular, reports upcoming carotid surgery at [facility]. She states she has rx for atorvastatin and plavix to continuous pickling line pickler at pharmacy. 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 Atherosclerosis of [place] co ronary artery without angina pectoris 12/31/2021 [...] Assessment & Plan: Home PT to start [place] filter in place 08/19/2014 History of pulmonary [...] rx evidently given by vascular, has to continuous pickling line pickler rx documented as of this encounter (statuses as of 09/22/2023) Resolved Problems Problem Noted Date Diagnosed Date [...] 6:21 hours, TINY [facility] Nontoxic uninodular goiter 06/16/2011 1 10/17/2010 Body [...] as of this encounter (statuses as of 09/22/2023) Immunizations Name Administration Dates Next Due COVID-19 mRNA, LNP-s, No Pre serve, 2-Dose Series ([facility]) 01/08/2021,12/18/2020 COVID-19, LNP-s, No Preserve , Navarro-sucrose, Ages 12+ (Pfizer) 2022,10/01/2021 COVID-19, MRNA-LNP, 23-24, P F, 30 MCG/0.3 mL, 12 YRS AND ABOVE, IM (PFIZER-Comirnaty) 07/26/2023 Pneumococcal Conjugate Vacci ne, 20-valent ([id number]) 03/12/2022 Pneumococcal Polysaccharide PPV23 (Pneumovax) 08/22/2009,06/15/2006 Season [...] Pressure - - Pulse - - Temperature 36.2 C (97.2 F) 09/22/2023 8:22 AM ES T Respiratory Rate - - Oxygen Saturation 98% 09/22/2023 8:22 AM EST Inhaled Oxygen Concentration - - Weight - - Height - - Body Mass Index - - documented in this encounter Progress Notes * Sathish Lundberg PA-C - 09/09/2023 2:21 PM EST Images from the original note were not included. [facility] Problem Oriented Charting Provider Visit Date: 09/22/2023 Time: 8:23 AM [facility] Sub-Program: Focused Care Management (3-9 months) [facility] Episode Start Date: No linked episodes Assessment and Plan #1 H/O transcarotid artery revascularization (TCAR) (Primary) #2 Hypertensive heart and kidney disease with chronic [...] Pro-BNP Chest X-Ray Additional Comments: Stable today #3 Type 2 diabetes mellitus with stage 3b chronic kidney disease, with long-term current use of insulin ([facility]) Assessment & Plan: "RED FLAG" Diabetic symptoms: Other: none Goal HgbA1c <8 Diabetic Complications Vascular (examples: PVD, PAD, CAD, CVA) Renal (example: CKD, Proteinuria, Dialysis) Medication Regimen Basal/Long Acting Insulin GLP-1 Agonist (ex: Victoza, Trulicity, Ozempic) DM Secondary Prevention Moderate-High Intensity Statin Additional Comments Follows with MTM Using dexcom CGM Additional Medical Decision Makin/12-09/09/23 - [facility] scheduled TCAR, Dr tang Following closely with PCP at [address] Continues on chronic o2 3L Scheduled appointments in the next 60 days: Future Appointments-next 60 days Date/Time Provider Specialty Dept Phone 09/30/2023 1:00 PM (Arrive by 12:45 PM) Galdino Andujar DO Family Medicine [phone] 09/30/2023 1:40 PM (Arrive by 1:25 PM) [place], Pharmacist 65 [facility] Family Medicine [phone] 10/06/2023 10:00 AM Vera Capellan RN [facility] [phone] 10/20/2023 12:30 PM Andrea Paez PA-C Orthopedics [phone] 11/11/2023 2:00 PM College, Nurse Annual Wellness Visit 65 [facility] Ancillary [phone] 01/11/2024 1:00 PM (Arrive by 12:45 PM) Marjorie Powell PA-C Cardiology [phone] A total of 30 minutes was spent face to face (via video-based telemedicine if designated as a telemedicine visit) Subjective Subjective Is this a Telemedicine Visit? No, this is an Home Visit. Reason For [facility] Visit: Follow-Up Current Concerns: Stephanie Camp is a 68 year old female seen today for a [facility] provider visit. Today's concerns are: Denies concerns Just returned home earlier today from [facility] following scheduled TCAR Denies pain, reports having pain medicine prior to leaving hospital this morning Ongoing AVENDAÑO, but no worse than usual Denies SOB at rest Denies chest pain Denies n/v, constipation Additional Objective Objective Vitals: 09/22/23 0822 Temp: 36.2 C (97.2 F) SpO2: 98% Last Weights: Wt Readings from Last 3 Encounters: 09/13/23 134 kg (295 lb 8 oz) 08/24/23 132.9 kg (293 lb) 08/05/23 135.9 kg (299 lb 9.6 oz) Last BPs: BP Readings from Last 4 Encounters: 09/13/23 122/60 08/24/23 140/70 08/06/23 100/74 08/05/23 118/60 General: alert and no distress Neuro: alert & oriented x 3 with fluent speech Heart: regular rate & rhythm and no murmur Chest: right supraclavicular incision cdi Lungs: no chest wall tenderness, lungs clear to auscultation Abdomen: abdomen soft, non-tender, obese, normal bowel sounds, and no rebound or guarding Ext: +edema bilat LE Lab Review: I have reviewed the following results: Imaging results in the last 6 months XR KNEE 3 VIEWS Result Date: 04/23/2023 IMPRESSION: Osteoarthritis with progression compared to prior study. THIS DOCUMENT HAS BEEN ELECTRONICALLY SIGNED BY KARY DE LA ROSA MD BMP results Recent Labs Units 09/13/23 1005 09/07/23 0000 07/25/23 0000 03/17/23 1237 12/08/22 1515 11/01/22 1413 SODIUM - [facility] mmol/L 137 -- -- 141 -- 139 POTASSIUM - [facility] mmol/L 4.2 -- -- 4.0 -- 4.5 POTASSIUM-OUTSIDE LAB MMOL/L -- -- 3.9 -- -- -- CHLORIDE - [facility] mmol/L 96* -- -- 98 -- 96* CO2 - [facility] mmol/L 31 -- -- 31 -- 31 CREATININE - [facility] mg/dL 1.6* -- -- 1.6* 1.7* 1.6* CREATININE-OUTSIDE LAB -- 1.69 1.84* -- -- -- BUN - [facility] mg/dL 31* -- -- 25* 25* 25* Lipid panel results Recent Labs Units 07/02/22 1511 CHOLESTEROL - [facility] mg/dL 208* LDL CHOLESTEROL (CALCULATED) - [facility] mg/dL 120 HDL CHOLESTEROL - [facility] mg/dL 44* TRIGLYCERIDES - [facility] mg/dL 220* CBC results Recent Labs Units 09/13/23 1005 07/25/23 0000 03/17/23 1237 11/01/22 1413 WBC AUTO - [facility] K/uL 12.24* -- 12.35* 11.31* HGB - [facility] g/dL 10.8* -- 13.2 13.3 HEMOGLOBIN-OUTSIDE LAB G/DL -- 13.0 -- -- HCT - [facility] % 35.1* -- 43.3 43.5 PLATELET AUTO - [facility] K/uL 352 -- 286 339 HbA1c results Recent Labs Units 07/25/23 0000 03/05/23 0000 02/11/23 1131 HEMOGLOBIN A1C - [facility] % -- -- 7.7* HEMOGLOBIN, S3A-HIVYMON LAB 9.2* 7.1 -- Sathish Lundberg PA-C 8:23 AM *Communication sent to PCP (via autofax if [facility]), [facility] Health Care Team members,relevant Specialty Care Physicians* documented in this encounter Miscellaneous Notes * Assessment & Plan Note - Sathish Lundberg PA-C - 09/22/2023 8:22 AM EST Associated Problem(s): 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 3b chronic kidney disease (HCC) "RED FLAG" HF Symptoms: Leg Swelling (Examples: [...] Pro-BNP Chest X-Ray Additional Comments: Stable today * Assessment & Plan Note - Sathish Lundberg PA-C - 09/22/2023 8:19 AM EST Associated Problem(s): Type 2 diabetes mellitus with stage 3b chronic kidney disease, with long-term current use of insulin (HCC) "RED FLAG" Diabetic symptoms: Other: none Goal HgbA1c <8 Diabetic Complications Vascular (examples: PVD, PAD, CAD, CVA) Renal (example: CKD, Proteinuria, Dialysis) Medication Regimen Basal/Long Acting Insulin GLP-1 Agonist (ex: Victoza, Trulicity, Ozempic) DM Secondary Prevention Moderate-High Intensity Statin Additional Comments Follows with MTM Using dexcom CGM documented in this encounter Plan of Treatment Upcoming Encounters Date Type Department Care Team (Late st Contact Info) Description 09/30/2023 1:00 PM EST Office Visit Family Practice [address] [place] [phone] Galdino Andujar, 293 [facility] [place] [address] 09/30/2023 1:40 PM EST Office Visit Family Practice [address] [place] [address] [address] [facility] [phone] College, Pharmacist [address] [address] 10/06/2023 10:00 AM EST Home Visit [facility] 132 [facility] [place] [address] Vera Capellan RN [address] [facility] [place] [address] 10/20/2023 12:30 PM EST Telemedicine Orthopaedics [facility] 132 [facility] [place] [address] Andrea Paez PA-C [address] [place] [address] 11/11/2023 2:00 PM EST Nurse Only Ancillary [address] [address] College, Nurse Annual Wellness Visit [address] [place], [place] [address] [address] 01/11/2024 1:00 PM EDT Office Visit Cardiology, [facility] 132 [facility] [place] [address] Marjorie Powell PA-C [address] [place] [address] Scheduled Procedures Name Priority Associated Diagnoses Date/Ti [...] [address] 02/12/202401/24, 01/07/2022, 03/12/2021, Additional history exists GFR 03/14/2024 09/13/2023, 08/26, 07/25/2023, Additional history exists Mammogram 04/21/2024 04/21/2023, 01/24, 10/01/2020, Additional history exists Diabetic Eye Exam 05/09/2024 05/09/2023, , 04/14/2021, Additional history exists Albumin/Creatinine Ratio 08/05/2024 023, 11/01/2022, 01/07/2022, Additional history exists CKD HGB USE SMARTSET 61956 09/13/202409/13, 09/13/2023, 07/25/2023, Additional history exists Depression [...] Documents on File Type Date Recorded Patient Transport Coordinator Expl anation POLST 03/19/2020 4:25 PM [...] the patient have Health Care Power of Statistician Theoretical? No Healthcare Agents on File Name Relationship Healthcare Agent Relationship Communication Galdino Camp Other - (no specific identity) Health Care Power of Statistician Theoretical Princess Allen Other - (no specific identity) Health Care Power of Statistician Theoretical Care Teams Supervisor Fruit Grading Relationship Specialty Start Date End Date Galdino Andujar DO [address] [place] [address] PCP - General Internal Medicine 01/07/22 documented as of this encounter
--- OUTSIDE RECORDS SUMMARY | 2023-10-24 20:46 | External Medical Summary | Summary of Care ---
Author Name Unknown Organization [facility] Address [address] [place] [address] Phone [phone] Care Team Providers Care Calculator Operator Name Role Phone Galdino Andujar DO Primary Care Provider [phone] Reason for Visit * Reason Onset Date Comments FYI 09/29/2023 Encounter Details Date Type Department Care Team (Late st Contact Info) Description 09/29/2023 Telephone Family Practice 65 [facility] [place] [address] [place] [address] Galdino Andujar DO [address] [place] [address] Allergies Active Allergy Reactions Criticality Noted Date [...] as of this encounter (statuses as of 09/29/2023) Medications Medication Sig Dispensed Refills Start Date [...] Oral Tablet (Levoxyl)Indication s:Hyperparathyroidi sm, secondary renal ([facility]) Take 1 Tablet by mouth [...] goal of 7.0%-8.0% ([facility]) INJECT 50 UNITS UNDER THE [...] as of this encounter (statuses as of 09/29/2023) Active Problems Problem Noted Date Diagnosed Date [...] thrombocytopenia (HIT) 2 Atherosclerosis of [place] co ronary artery without angina pectoris 12/31/2021 [...] Assessment & Plan: Home PT to start [place] filter in place 08/19/2014 History of pulmonary [...] as of this encounter (statuses as of 09/29/2023) Resolved Problems Problem Noted Date Diagnosed Date [...] as of this encounter (statuses as of 09/29/2023) Immunizations Name Administration Dates Next Due COVID-19 mRNA, LNP-s, No Pre serve, 2-Dose Series ([employer]) 01/08/2021,12/18/2020 COVID-19, LNP-s, No Preserve , Navarro-sucrose, Ages 12+ (Pfizer) 2022,10/01/2021 COVID-19, MRNA-LNP, 23-24, P F, 30 MCG/0.3 mL, 12 YRS AND ABOVE, IM (PFIZER-Comirnat) 07/26/2023 Pneumococcal Conjugate Vacci ne, 20-valent ([id number]) 03/12/2022 Pneumococcal Polysaccharide PPV23 (Pneumovax) 08/22/2009,06/15/2006 Season [...] Telephone Encounter - Shira Gross LPN - 09/29/2023 12:55 PM EST Noted. Thank you * Telephone Encounter - Irina Vergara OSA - 09/29/2023 12:07 PM EST Called to confirm appt for tomorrow, however; pt advised she is admitted. States she has been in the hospital since . . documented in this encounter Plan of Treatment Upcoming Encounters Date Type Department Care Team (Late st Contact Info) Description 10/06/2023 10:00 AM EST Home Visit [facility], [facility] 132 [facility] [place] [address] Vera Capellan RN 132 [facility] [place] [address] 10/20/2023 12:30 PM EST Telemedicine Orthopaedics [facility] 132 [facility] [place] [address] Andrea Paez PA-C [address] [place] [address] 11/11/2023 2:00 PM EST Nurse Only Ancillary 65 [facility] 293 [facility], [place] [address] College, Nurse Annual Wellness Visit [address] [address] 01/11/2024 1:00 PM EDT Office Visit Cardiology, [facility] [address] [place] [address] Marjorie Powell PA-C [address] [place] [address] Scheduled Procedures Name Priority Associated Diagnoses Date/Ti [...] Additional history exists CKD PHOS USE SMARTSET 29567 02/12/202401/24, 01/07/2022, 03/12/2021, Additional history exists GFR 03/14/2024 09/13/2023, 08/26, 07/25/2023, Additional history exists Mammogram 04/21/2024 04/21/2023, 01/24, 10/01/2020, Additional history exists Diabetic Eye Exam 05/09/2024 05/09/2023, , 04/14/2021, Additional history exists Albumin/Creatinine Ratio 08/05/20242 023, 11/01/2022, 01/07/2022, Additional history exists CKD HGB USE SMARTSET 22369 09/13/202409/13, 09/13/2023, 07/25/2023, Additional history exists Depression [...] Documents on File Type Date Recorded Patient Dinkey Operator Expl anation POL 03/19/2020 4:25 PM POLST [...] the patient have Health Care Power of Change Control Manager? No Healthcare Agents on File Name Relationship Healthcare Agent Relationship Communication Galdino Camp Other - (no specific identity) Health Care Power of Change Control Manager Princess Allen Other - (no specific identity) Health Care Power of Change Control Manager Care Teams Calculator Operator Relationship Specialty Start Date End Date Galdino Andujar DO [address] [place] [address] PCP - General Internal Medicine 01/07/22 documented as of this encounter
--- OUTSIDE RECORDS SUMMARY | 2023-10-24 20:46 | External Medical Summary | Summary of Care ---
Author Name Unknown Organization [facility] Address [address] [place] [address] Phone [phone] Care Team Providers Care Mold Maker Name Role Phone Galdino Andujar DO Primary Care Provider [phone] Reason for Visit * Reason Onset Date Comments Test Results 07/25/2023 Abnl glucose Encounter Details Date Type Department Care Team (Late st Contact Info) Description 07/25/2023 Telephone Family Practice 65 [facility] [place] [address] [place] [address] Galdino Andujar DO [address] [place] [address] Test Results (Abnl glucose) Allergies Active Allergy Reactions Criticality Noted Date [...] Muscle spasms. 60 Tablet 5 07/20/2023 Active documented as of this encounter (statuses [...] has rx for atorvastatin and plavix to pharmacy picking technician at pharmacy. 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 Atherosclerosis of [place] co ronary artery without angina pectoris 12/31/2021 [...] Assessment & Plan: Home PT to start [place] filter in place 08/19/2014 History of pulmonary [...] rx evidently given by vascular, has to pharmacy picking technician rx documented as of this encounter (statuses [...] mRNA, LNP-s, No Pre serve, 2-Dose Series ([employer]) 01/08/2021,12/18/2020 COVID-19, LNP-s, No Preserve , Navarro-sucrose, Ages 12+ ([employer]) 2022,10/01/2021 Pneumococcal Conjugate Vacci ne, 20-valent ([id number]) 03/12/2022 Pneumococcal Polysaccharide PPV23 (Pneumovax) 08/22/2009,06/15/2006 Season [...] Miscellaneous Notes * Telephone Encounter - Frances Ellis [facility] - 07/25/2023 8:03 PM EDT Noted - patient has inperson visit tomorrow. Frances Duong, Pharm D, BCACP Clinical Pharmacist [address] [facility] - [facility] 07/25/2023, 8:03 PM Ph. [phone] * Telephone Encounter - Archana Pierre OSA - 07/25/2023 11:12 AM EDT Kate / [facility] Vascular Surgery calling to report abnl glucose lvl. Pt's BG was noted to be 391 at 0930 this AM. She will fax a copy of the labs to PCP as well. If anyquestions, pls call her back at [phone]. Thx. documented in this encounter Plan of Treatment Upcoming Encounters Date Type Department Care Team (Late st Contact Info) Description 10/06/2023 10:00 AM EST Home Visit [facility] at Home, [facility] 132 [facility] [place] [address] Vera Capellan RN 132 [facility] [place] [address] 10/20/2023 12:30 PM EST Telemedicine Orthopaedics [facility] 132 [facility] [place] [address] Andrea Paez PA-C [address] [place] [address] 11/11/2023 2:00 PM EST Nurse Only Ancillary 65 [facility] [address] [facility] [address] College, Nurse Annual Wellness Visit 65 [facility] [address] [facility] [address] 01/11/2024 1:00 PM EDT Office Visit Cardiology, [facility] [address] [place] [address] Marjorie Powell, EVIN [address] [place] [address] Scheduled Procedures Name Priority Associated Diagnoses Date/Ti [...] Additional history exists CKD PHOS USE SMARTSET 13386 02/12/202401/24, 01/07/2022, 03/12/2021, Additional history exists GFR 03/14/2024 09/13/2023, 08/26, 07/25/2023, Additional history exists Mammogram 04/21/2024 04/21/2023, 01/24, 10/01/2020, Additional history exists Diabetic Eye Exam 05/09/2024 05/09/2023, , 04/14/2021, Additional history exists Albumin/Creatinine Ratio 08/05/202408/05/2 023, 11/01/2022, 01/07/2022, Additional history exists CKD HGB USE SMARTSET 34261 09/13/202409/13, 09/13/2023, 07/25/2023, Additional history exists Depression [...] on File Type Date Recorded Patient Tire Changer Aircraft Expl anation POLST 03/19/2020 4:25 PM POLST [...] the patient have Health Care Power of Mobile Home Servicer? No Healthcare Agents on File Name Relationship Healthcare Agent Relationship Communication Galdino Camp Other - (no specific identity) Health Care Power of Mobile Home Servicer Princess Allen Other - (no specific identity) Health Care Power of Mobile Home Servicer Care Teams Mold Maker Relationship Specialty Start Date End Date Galdino Andujar DO [address] [place] [address] PCP - General Internal Medicine 01/07/22 documented as of this encounter
[2023-10-24] MEDS ORDERED: MAGNESIUM OXIDE 400 MG TAB PO SCH (21:00)
[2023-10-24] MEDS: clonazePAM 0.5 MG TAB PO SCH (21:46)
[2023-10-24] MEDS: oxyCODONE HCL IR 5 MG TAB (IMMEDIATE RELEASE) PO PRN (21:46)
[2023-10-24] MEDS: INSULIN ASPART PER UNIT CHARGE SC SCH (21:47)
[2023-10-24] MEDS: LANTUS PER UNIT CHARGE SQ SCH (21:47)
[2023-10-24 22:04] LABS: Bacteria Urine Automated Negative (Negative); Epithelial Cell Urine Auto >30 /lpf (0-5); WBC Urine Automated >30 /hpf (0-5)
[2023-10-24] MEDS: rOPINIRole HCL 2 MG TABLET PO SCH (22:22)
[2023-10-24] MEDS: APIXABAN 2.5 MG TAB PO SCH (22:22)
[2023-10-24] MEDS: DOCUSATE SODIUM/SENNA 50/8.6MG TAB PO SCH (22:22)
[2023-10-24] MEDS: GABAPENTIN 600 MG TAB PO SCH (22:23)
[2023-10-24] MEDS: traZODone HCL 100 MG TAB PO SCH (22:23)
[2023-10-24 22:26] LABS: RBC Urine Automated >30 /hpf (0-4)
[2023-10-24 22:27] LABS: Creatinine Urine Random 94.6 mg/dl; Protein Creatinine Ratio Urine 3.8 (0-0.2); Total Protein Urine Random 357.8 mg/dl (0-11.9)
[2023-10-25] MEDS: oxyCODONE HCL IR 5 MG TAB (IMMEDIATE RELEASE) PO PRN (04:15)
[2023-10-25] MEDS: LEVOTHYROXINE SODIUM 50 MCG TABLET PO SCH (05:55)
[2023-10-25] MEDS: LEVOTHYROXINE SODIUM 200 MCG TABLET PO SCH (05:56)
--- NOTE | 2023-10-25 07:06 | XRay Report ---
XR chest 1V portable HISTORY: weakness, fatigue COMPARISON: Chest and right rib series 09/22/2023. FINDINGS: No pneumothorax. No pleural effusion is. The heart remains mildly enlarged. Diffuse interst itial thickening persists. There are low lung volumes again noted. No new focal lung consolidations i dentified. No evidence for pulmonary edema. There are surgical clips again noted within the neck base . Right common carotid artery stent is partially visualized. No acute fractures. IMPRESSION: 1. No significant change compared to the prior study. 2. Low lung volumes with diffuse interstitial thickening persists. This suggests chronic interstitial lung disease. 3. Stable cardiomegaly. ACT 112: Negative or not required by law. Electronically signed by: Ernesto France M.D. 10/25/2023 7:05 AM
[2023-10-25 07:14] LABS: Hematocrit (blood only) 31.4 % (37.0-47.0); Hemoglobin 9.8 g/dl (12.0-16.0); Mean Corpuscular Hemoglobin 27.8 pg (25.0-34.0); Mean Corpuscular Hgb Conc 31.2 g/dL (32.0-36.0); Mean Platelet Volume 10.6 fL (9.4-12.4); Platelet Count 288 K/uL (130-400); RDW Coefficient of Variation 14.2 % (11.5-14.5); Red Blood Count 3.53 M/uL (4.20-5.40); White Blood Count 11.71 K/ul (4.8-10.8)
[2023-10-25 07:27] LABS: BUN Creatinine Ratio 17.7 (10-20); Calcium 9.1 mg/dl (8.6-10.3); Creatinine Clr Calc Pharmacy 41.2 ml/min; Est GFR (African American) 34.1 ml/min; Est GFR (Non-African American) 29.4 ml/min; Potassium 3.8 mmol/L (3.5-5.1)
[2023-10-25] MEDS: ASPIRIN 81 MG ECTAB PO SCH (09:25)
[2023-10-25] MEDS: GABAPENTIN 600 MG TAB PO SCH ×3 (09:25→20:47)
[2023-10-25] MEDS: PANTOprazole 40 MG TAB PO SCH (09:25)
[2023-10-25] MEDS: ATORVASTATIN 20 MG TAB PO SCH (09:25)
[2023-10-25] MEDS: CLOPIDOGREL BISULFATE 75 MG TAB PO SCH (09:25)
[2023-10-25] MEDS: DOCUSATE SODIUM/SENNA 50/8.6MG TAB PO SCH ×2 (09:25→20:46)
[2023-10-25] MEDS: DULoxetine HCL 60 MG CAP PO SCH (09:25)
[2023-10-25] MEDS: APIXABAN 2.5 MG TAB PO SCH ×2 (09:25→20:45)
[2023-10-25] MEDS: DULoxetine HCL 30 MG CAP PO SCH (09:25)
[2023-10-25] MEDS: clonazePAM 0.5 MG TAB PO SCH ×2 (09:31→20:46)
[2023-10-25] MEDS: INSULIN ASPART PER UNIT CHARGE SC SCH ×4 (09:31→20:44)
[2023-10-25] MEDS: LANTUS PER UNIT CHARGE SQ SCH ×2 (09:32→20:59)
--- NOTE | 2023-10-25 10:47 | Nephrology Consultation ---
Date of Consultation October 25, 2023 Assessment & Plan (1) Abnormal finding on urinalysis: new microhematuria, pyuria, and proteinuria on dipstick on specimen full of skin cells and w/ notable inflammation though no evidence of infection. This is presenting 3 wks after completing course of abtx for Klebsiella bacteremia/pyelonephritis. DDx includes post infectious GN (though Klebsiella is not particularly known to do this), IgA vasculitis or C3 GN or less likely a lupus GN or IgA nephropathy >> any/all of these can be provoked/brought out by antecedent illness. would expect with most of these dxs more robust blood pressure, even HTN. My index of suspicion is low for these. However these new findings certainly need to be followed carefully. -check complement levels and ESR to start -repeat for UACM and prot/creat and ensure clean catch specimen/no hat -no urgent need for renal bx or coburn serologic w/u at this time Care coordinated w/ Dr Borden (2) Hypotension: BP has been soft overnight/through the day > often in 90s this PM hospitalist started pt on NS at 80 ml/hr and cefdinir; cxs remain negative >low threshold for TTE given malaise, generalized aches, hypotension, recent bacteremia (3) CKD (chronic kidney disease), stage III: baseline creatinine 1.7 > historically non protienuric CKD 3B; follows w/ Dr Lenz in CKD clinic. 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 per radiology reports versus duplicated R renal collecting system; present since at least 2018; not noted on [address] scans >stable; not likely a clinical issue here acutely History of Present Illness Reason for Consultation: CKD, microscopic Hematuria, Proteinuria Requesting Physician: Dr Borden Attending Physician: Pablo Borden MD History of Present Illness 68 y/o F whom I'm asked to see for CKD, microscopic hematuria, proteinuria was admitted last evening w/ multifactorial generalized weakness, fatigue, increasing abdominal pain after recent extended admission for bacteremia/pyelonephritis. Weakness contributors include diarrhea, new anemia, hypotension w/o evidence of sepsis, lack of access to rehab therapy for insurance reasons. Past medical history includes type 2 diabetes, chronic hypoxic respiratory failure on 3 L oxygen, hyperlipidemia, postsurgical hypothyroidism, chronic kidney disease stage IIIb baseline creatinine around 1.7, interstitial lung disease, obstructive sleep apnea on CPAP, chronic HFpEF, history of DVT and PE s/p IVC filter, history of heparin-induced thrombocytopenia, venous insufficiency, hypertension and 09/06/23 right carotid artery repair complicated by bleeding, R subclavian stenosis, chronic ambulatory dysfunction/walker dependent; anxiety, OA, lumbar radiculopathy, remote R colon perforation from complicated diverticulitis with partial colectomy/colostmy, now reversed and c/b recurrent incisional hernias. IVC filter from 07/2009. also s/p thyroidectomy. She was admitted here 09/20-10/02/23 for Klebsiella oxytoca pyelonephritis and bacteremia, treated w/ ceftriaxone then cipro for 14 days per ID recs through 10/03/23. She had ELSIE from ischemic ATN that admission w/ presenting creat 1.7, peak creat 2.4, d/c creat 1.5. She developed diarrhea approximately one week after returning home from the hospital. On presentation last evening, she reported watery, nonbloody diarrhea 3-4 times daily associated with a crampy R>L abdominal pain. however no BM since arrival. felt feverish day before admission and states EMS told her she had temp 38.1. ongoing poor po intake; no emesis. not sob. states urine studies were collected both in a hat. no rash; endorses worse/new generalized body aches/joint pains flu-like Allergies Allergy/AdvReac Type Severity Reaction Status Date / Time morphine Allergy Severe Swelling, Verified 10/24/23 17:29 "Violent reaction- almost " dapagliflozin [From Farxiga] Allergy Intermediate Yeast Verified 10/24/23 17:29 infections tetanus toxoid, adsorbed Allergy Intermediate Passed Verified 10/24/23 17:29 out, "got sick" as child bupropion [From Wellbutrin] AdvReac Intermediate Recurrent Verified 10/24/23 17:29 falls as per patient codeine AdvReac Intermediate Hallucinati Verified 10/24/23 17:29 ons empagliflozin AdvReac Intermediate Yeast Verified 10/24/23 17:29 [From Jardiance] infections heparin AdvReac Intermediate HIT, Verified 10/24/23 17:29 "Fluid in lungs" hydrocodone [From Vicodin] AdvReac Intermediate Drowsy Verified 10/24/23 17:29 Home Medications Medication Instructions Recorded Confirmed Type aspirin 81 mg tablet,delayed 81 mg PO DAILY 09/20/23 10/24/23 History release atorvastatin 20 mg tablet 20 mg PO DAILY 09/20/23 10/24/23 History baclofen 10 mg tablet 10 mg PO BID PRN Muscle Spasm 09/20/23 10/24/23 History clonazepam 0.5 mg tablet 0.5 mg PO BID 09/20/23 10/24/23 History clopidogrel 75 mg tablet 75 mg PO DAILY 09/20/23 10/24/23 History duloxetine 60 mg capsule,delayed See Rx Instructions .Route .COMPLEX 09/20/23 10/24/23 History release furosemide 40 mg tablet 60 mg PO BID 09/20/23 10/24/23 History gabapentin 300 mg capsule 600 mg PO TID 09/20/23 10/24/23 History insulin aspart U-100 100 unit/mL 8 unit subcut UD 09/20/23 10/24/23 History (3 mL) subcutaneous pen (Novolog FlexPen U-100 Insulin aspart) insulin degludec 100 unit/mL (3 50 unit subcut HS 09/20/23 10/24/23 History mL) subcutaneous pen (Tresiba FlexTouch U-100 insulin) levothyroxine 200 mcg tablet See Rx Instructions .Route .COMPLEX 09/20/23 10/24/23 History levothyroxine 50 mcg tablet See Rx Instructions .Route .COMPLEX 09/20/23 10/24/23 History magnesium oxide 400 mg (241.3 mg 400 mg PO BID 09/20/23 10/24/23 History magnesium) tablet omeprazole 20 mg capsule,delayed 20 mg PO DAILY 09/20/23 10/24/23 History release oxycodone 5 mg tablet 5 mg PO Q6H PRN Pain 09/20/23 10/24/23 History potassium chloride 20 mEq 20 meq PO BID 09/20/23 10/24/23 History tablet,extended release(part/cryst) ropinirole 2 mg tablet 2 mg PO HS 09/20/23 10/24/23 History sennosides 8.6 mg-docusate sodium 1 tab PO BID 09/20/23 10/24/23 History 50 mg tablet (Senna-Time S) tirzepatide 5 mg/0.5 mL 5 mg subcut WK 09/20/23 10/24/23 History subcutaneous pen injector (Mounjose martinro) tramadol 50 mg tablet 50 mg PO TID PRN Pain 09/20/23 10/24/23 History trazodone 100 mg tablet 100 mg PO HS 09/20/23 10/24/23 History Vit D3 1000iu 200+50 Softge 1 tab PO QAM 10/24/23 10/24/23 History apixaban 2.5 mg tablet (Eliquis) 2.5 mg PO BID 10/24/23 10/24/23 History dicyclomine 20 mg tablet 20 mg PO QID PRN abdominal cramping 10/24/23 10/24/23 History duloxetine 30 mg capsule,delayed See Rx Instructions .Route .COMPLEX 10/24/23 10/24/23 History release triamcinolone acetonide 0.5 % 1 applic topical BID PRN chest rash 10/24/23 10/24/23 History topical cream Patient History Medical History Acute pyelonephritis Hypomagnesemia Mitral valve stenosis Echo 06/2023: Borderline mild mitral stenosis secondary to severe mitral annular calcification Chronic hypoxemic respiratory failure Cataract, bilateral Lumbago with sciatica Lower extremity pain, bilateral Neuropathy feet On home oxygen therapy 3L continuous CHF (congestive heart failure) Follows with Dr. Woodall Subclavian artery stenosis Cerebrovascular duplex study 06/2023: Retrograde flow in the right vertebral artery. 50-69% proximal right subclavian artery stenosis. Antegrade flow in the left vertebral artery. Normal flow in the left subclavian artery. Carotid stenosis, right Cerebrovascular duplex 07/11/23: 80-99% R ICA stenosis. No hemodynamically significant stenosis in the LICA. Diabetes mellitus, type II CKD (chronic kidney disease), stage III Follows with [facility] ELISSA on CPAP CPAP + 3L O2 (O2 is continuous) HTN (hypertension) HLD (hyperlipidemia) Morbid obesity HIT (heparin-induced thrombocytopenia) 2008, [facility] then life flight to [place] > "resolved" Depression with anxiety Hypothyroidism History of pulmonary embolism 2008 s/p zoraida filter GERD (gastroesophageal reflux disease) RLS (restless legs syndrome) History of DVT (deep vein thrombosis) 2008 (during ICU [place] admission/PNA) Presence of IVC filter 2009 Fibromyalgia Surgical History Family history of reaction to anesthesia Brother/niece- PONV Brother- "wakes up violent" History of colostomy reversal History of tooth extraction History of arthroscopy left ankle History of incisional hernia repair Nausea and vomiting after administration of anesthetic agent History of colonoscopy History of cholecystectomy History of total right knee replacement History of tracheostomy 06/2009 (per [facility] records), secondary to acute respiratory failure in setting of PNA, reversed a few months later History of thyroidectomy, total 2010 History of colon resection secondary to R colon perforation, resected treated with colostomy and eventual reversal in 2008, Dr. Lerma Family History Father , age 74 Lung cancer Mother , age 45 Cirrhosis Social History Smoking Status: Former smoker Tobacco Type: Cigarettes Cigarettes Per Day: 1996; Smoking End Date: 1996; Second Hand Exposure: No; Do You Dip or Chew Tobacco: No; Hx Alcohol Use: No Hx Substance Use: No Preferred Language: Lebanese Communication Ability: Effective Radiographer Cardiac Catheterization Required: No Beliefs That Will Affect Care: None marital status: Single Current Living Situation: Alone Current Living Situation Comment: Lives by self in apartment How many Children do You have: 0 Other Information That Helps Us Care for You: No Feels Safe at Home: Yes Safety Concerns: Feels Safe At This Time Assistive Devices: Oxygen - Continuous, Walker and Wheelchair Review of Systems 2 Review of Systems: All systems reviewed & are unremarkable except as noted in HPI & below Physical Exam 2 Constitutional: well developed, well nourished, + acute distress (tearful at times/ frustrated w/ her course) and cooperative Eyes: EOM intact bilaterally ENMT: Ears: no external ear abnormality Nose: no external nose abnormality Mouth: + dry oral mucous membranes Neck: no nuchal rigidity Respiratory: normal respiratory effort Auscultation: + diminished lung sounds Cardiovascular: Rate/Rhythm: regular rate and regular rhythm Extremities: n o edema Gastrointestinal (Abdomen): Inspection/Auscultation: normal bowel sounds P ercussion/Palpation: abdomen soft; abdomen nontender Musculoskeletal: Extremities: strength 5/5 throughout Skin: no rashes, warm and dry Neurologic: milan, fluent speech, no tremor Results & Data Vital Signs (Past 12 Hours) Vital Signs Temp Pulse Pulse Resp BP Pulse Ox O2 Del Method 10/25/23 07:35 37.2 C 89 20 93/51 L 96 Nasal Cannula 10/25/23 07:21 88 10/25/23 04:00 37.1 C 83 18 121/66 97 Nasal Cannula 10/25/23 00:51 87 10/24/23 23:18 37.5 C 84 18 103/55 L 97 CPAP 10/24/23 23:15 82 25 H 97 O2 Flow Rate 10/25/23 07:35 4 10/25/23 07:21 10/25/23 04:00 4 10/25/23 00:51 10/24/23 23:18 11 10/24/23 23:15 3 Laboratory Results 10/25/23 06:13 10/25/23 06:13 UA tubid dk yellow, 3+ protein, 3+ blood, 1017, 3+LE, >30 wbc/rbc/epi's; no nitrites, no bacteria 3.8 gm protein on spot ratio with >[address] a/p non con Lung bases: The heart is normal in size and without pericardial effusion. The coronary arteries and mitral annulus are densely calcified. The lung bases are clear noting bibasilar scarring/atelectasis. Liver: The unenhanced liver is mildly enlarged measuring 19.8 cm in length. The liver is otherwise normal in contour and attenuation. There is no intrahepatic biliary ductal dilatation. Gallbladder: Surgically absent noting clips in the gallbladder fossa. Spleen: Normal in size and attenuation. Pancreas: The unenhanced pancreas is moderately atrophic and grossly unremarkable. Adrenal glands: Unremarkable. Kidneys: The unenhanced kidneys are atrophic. Moderate right-sided hydronephrosis is similar to previous. The right ureter is normal in caliber, with no obstructing stone or lesion identified. This likely represents a UVJ type obstruction. No hydronephrosis is seen on the left. There are no renal calculi identified. There is no evidence of contour deforming renal mass lesion. There is asymmetric perinephric stranding on the right. Abdominal vasculature: The abdominal aorta is normal in course and caliber noting advanced atherosclerotic calcification. An infrarenal IVC filter is in place. Bowel: There is postoperative change from sigmoid colon resection with colocolonic anastomosis. No bowel obstruction is seen. There is mild to moderate colonic fecal retention. Duodenal diverticula are incidentally noted. The appendix is well-visualized and normal. Peritoneum: There is no intraperitoneal free air or abdominal ascites. There is a fat-containing umbilical hernia. There is diastases of the rectus musculature with protrusion of abdominal contents. There is a also a small hernia in the right central pelvis seen on image #[id number]. Lymphadenopathy: None. Pelvic viscera: The the bladder is decompressed and not well assessed. Uterus and adnexa are normal as visualized. Skeletal structures: The skeletal structures are osteopenic. There is moderate lumbosacral spondylosis. No lytic or blastic lesions are seen. IMPRESSION: 1. Moderate right-sided hydronephrosis is similar to previous and likely represents a UPJ type obstruction. There is asymmetric right-sided perinephric stranding. Correlate with clinical findings and urinalysis or evidence of superimposed urinary tract infection. 2. Hepatomegaly. (4) Hydronephrosis Hydronephrosis type: unspecified Qualified Code(s): N13.30 - Unspecified hydronephrosis
[2023-10-25] MEDS ORDERED: SODIUM CHLORIDE 0.9% 1,000 ML IV ONE (12:03)
[2023-10-25] MEDS: CEFDINIR 300 MG CAP PO SCH ×2 (12:57→20:46)
[2023-10-25] MEDS: ADVANCED PROBIOTIC 1250 MG CAPSULE PO SCH (12:58)
--- NOTE | 2023-10-25 14:18 | Hospitalist Progress Note ---
Date of Service October 25, 2023 Assessment & Plan (1) Weakness: Plan: Abdominal pain, diarrhea Likely overflow diarrhea due to fecal retention Recent hospitalization for bacteremia treated with antibiotics --CT ABD:There is postoperative change from sigmoid colon resection with colocolonic anastomosis. No bowel obstruction is seen. There is mild to moderate colonic fecal retention. Duodenal diverticula are incidentally noted. The appendix is well-visualized and normal. There is no intraperitoneal free air or abdominal ascites. There is a fat-containing umbilical hernia. There is diastases of the rectus musculature with protrusion of abdominal contents. There is a also a small hernia in the right central pelvis seen on image #[id number]. Moderate right-sided hydronephrosis is similar to previous and likely represents a UPJ type obstruction. There is asymmetric right-sided perinephric stranding. Correlate with clinical findings and urinalysis or evidence of superimposed urinary tract infection. Hepatomegaly. 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 Will hold her lasix with ongoing diarrhea Monitor volume status Resume diuretics as able (4) Polypharmacy: Plan: Likely contributing to weakness. Mood disorder Fibromyalgia Restless leg syndrome Patient states medications were unchanged recently and has been on them for a long time (trazodone, clonazepam, duloxetine) Continue home medications Oral pain medications for excessive sedation Carotid artery disease S/P transcarotid artery revascularization in 09/06/23 On aspirin, Plavix, Lipitor Also on Eliquis (H/O PE, DVT S/P IVC Filter)--recently decreased dose to 2.5 mg twice daily by PCP (5) Type 2 diabetes, uncontrolled, with neuropathy: Plan: Hold home agents Continue insulin while hospitalized Monitor blood glucose levels (6) Abnormal finding on urinalysis: Plan: Management as above (7) Sleep apnea: Plan: Chronic, compliant with CPAP qHS Chronic hypoxic respiratory failure--on 3 L supplemental oxygen at baseline H/O interstitial lung disease (8) CKD (chronic kidney disease), stage III: Plan: Management as above (9) Hypothyroidism: Plan: Postsurgical hypothyroidism Hyperparathyroidism secondary to CKD chronic, stable. Continue levothyroxine (10) Depression with anxiety: Plan: Continue home medications (11) Presence of IVC filter: (12) Morbid obesity: Plan: BMI 46 continues on Mounjaro CODE STATUS Full code DVT Px: Eliquis Admission and Anticipated Discharge Date Admission Date: October 24, 2023 Subjective Patient is seen and examined at bedside States having nausea associate with right lower quadrant abdominal discomfort No diarrhea since hospitalization States having generalized weakness Denies any chest pain, dyspnea No other complaints Review of Systems Review of Systems: All systems reviewed & are unremarkable except as noted in Subjective Physical Exam Physical Exam: Physical Exam: Vitals signs as noted above General Appearance:Obese, no apparent distress Head: normocephalic, Atraumatic Eyes: normal inspection, EOMI Neck: supple, Trachea midline Respiratory/Chest: Normal breath sounds, minimal basal crackles, No accessory muscle use Cardiovascular: S1, S2, No murmur Abdomen/GI:Soft, mild RLQ tender, + abdominal wall hernia, bowel sounds present Extremities/Musculoskeletal:normal inspection, RLE Chronic edema--chronic unchanged per patient Neurologic/Psych:AAOX3, grossly no focal neurological deficits Skin: normal color, warm Results & Data Results & Data Vital Signs (Past 12 Hours) Vital Signs Temp Pulse Pulse Resp BP Pulse Ox O2 Del Method 10/25/23 11:04 37.1 C 83 20 102/61 95 Nasal Cannula 10/25/23 10:48 Nasal Cannula 10/25/23 07:35 37.2 C 89 20 93/51 L 96 Nasal Cannula 10/25/23 07:21 88 10/25/23 04:00 37.1 C 83 18 121/66 97 Nasal Cannula O2 Flow Rate 10/25/23 11:04 4 10/25/23 10:48 4 10/25/23 07:35 4 10/25/23 07:21 10/25/23 04:00 4 Laboratory Results Short CBC 10/24/23 10/25/23 Range/Units 14:31 06:13 WBC 14.11 H 11.71 H (4.8-10.8) K/ul Hgb 10.9 L 9.8 L (12.0-16.0) g/dl Hct 36.4 L 31.4 L (37.0-47.0) % Plt Count 349 288 (130-400) K/uL BMP 10/24/23 10/25/23 14:31 06:13 Sodium 135 L 136 Potassium 4.3 3.8 Chloride 96 L 97 L Carbon Dioxide 32 32 BUN 30 H 31 H Creatinine 1.83 H 1.75 H Glucose 188 H 171 H Calcium 9.4 9.1 Liver Function 10/24/23 Range/Units 14:31 Total Bilirubin 0.6 (0.2-1.0) mg/dl AST 13 (13-39) U/L ALT 9 (7-52) U/L Alkaline Phosphatase 97 (34-104) U/L Albumin 3.5 (3.4-5.0) gm/dl Urine 10/24/23 Range/Units 16:04 Urine Color Dark Yellow Urine Appearance Turbid A (Clear) Urine pH 5.5 (4.5-7.5) Ur Specific [place] 1.017 (1.000-1.030) Urine Protein 3+ H (Negative) Urine Glucose (UA) Negative (Negative) (2) Diarrhea Diarrhea type: unspecified type Qualified Code(s): R19.7 - Diarrhea, unspecified (3) CHF (congestive heart failure) Heart failure chronicity: acute on chronic Heart failure type: unspecified Qualified Code(s): I50.9 - Heart failure, unspecified
[2023-10-25] MEDS ORDERED: POLYETHYLENE (MIRALAX) 17 GM PACK PO PRN (14:28)
[2023-10-25 18:47] LABS: Appearance Urine Cloudy (Clear); Bacteria Urine Automated Negative (Negative); Bilirubin Urine Negative (Negative); Blood Urine 2+ (Negative); Color Urine Yellow; Epithelial Cell Urine Auto >30 /lpf (0-5); Glucose Urine UA Negative (Negative); Ketones Urine Negative (Negative); Leukocyte Esterase Urine 1+ (Negative); Nitrite Urine Negative (Negative); Protein Urine Trace (Negative); Specific Gravity Urine 1.013 (1.000-1.030); Urobilinogen Urine Negative (Negative); WBC Urine Automated >30 /hpf (0-5); pH Urine 5.5 (4.5-7.5)
[2023-10-25 19:06] LABS: Creatinine Urine Random 112.7 mg/dl; Protein Creatinine Ratio Urine 0.3 (0-0.2); Total Protein Urine Random 33.6 mg/dl (0-11.9)
[2023-10-25] MEDS: rOPINIRole HCL 2 MG TABLET PO SCH (20:47)
[2023-10-25] MEDS: traZODone HCL 100 MG TAB PO SCH (20:48)
[2023-10-25] MEDS: ACETAMINOPHEN 325 MG TAB PO PRN (20:48)
[2023-10-26] MEDS: oxyCODONE HCL IR 5 MG TAB (IMMEDIATE RELEASE) PO PRN ×2 (00:15→16:16)
[2023-10-26] MEDS: ACETAMINOPHEN 325 MG TAB PO PRN ×2 (04:15→20:58)
[2023-10-26] MEDS: LEVOTHYROXINE SODIUM 50 MCG TABLET PO SCH (04:16)
[2023-10-26] MEDS: LEVOTHYROXINE SODIUM 200 MCG TABLET PO SCH (04:16)
[2023-10-26 07:16] LABS: Hematocrit (blood only) 30.7 % (37.0-47.0); Hemoglobin 9.4 g/dl (12.0-16.0); Mean Corpuscular Hemoglobin 27.3 pg (25.0-34.0); Mean Corpuscular Hgb Conc 30.6 g/dL (32.0-36.0); Mean Corpuscular Volume 89.2 fL (80.0-100.0); Mean Platelet Volume 10.3 fL (9.4-12.4); Platelet Count 289 K/uL (130-400); RDW Coefficient of Variation 14.2 % (11.5-14.5); RDW Standard Deviation 46.2 fL (36.4-46.3); Red Blood Count 3.44 M/uL (4.20-5.40); White Blood Count 8.78 K/ul (4.8-10.8)
[2023-10-26 07:19] LABS: BUN Creatinine Ratio 18.2 (10-20); Calcium 9.2 mg/dl (8.6-10.3); Creatinine Clr Calc Pharmacy 50.3 ml/min; Est GFR (African American) 43.5 ml/min; Est GFR (Non-African American) 37.5 ml/min; Magnesium 1.8 mg/dl (1.7-2.4); Potassium 3.6 mmol/L (3.5-5.1)
--- NOTE | 2023-10-26 09:24 | Nephrology Progress Note ---
Date of Service October 26, 2023 Assessment & Plan (1) Abnormal finding on urinalysis: Plan: new microhematuria, pyuria, and proteinuria on dipstick on specimen full of skin cells and w/ notable inflammation though no evidence of infection. This is presenting 3 wks after completing course of abtx for Klebsiella bacteremia/pyelonephritis. DDx includes post infectious GN (though Klebsiella is not particularly known to do this), IgA vasculitis or C3 GN or less likely a lupus GN or IgA nephropathy >> any/all of these can be provoked/brought out by antecedent illness. would expect with most of these dxs more robust blood pressure, even HTN. My index of suspicion is low for these. However these new findings certainly need to be followed carefully. -f/u pending complement levels; ESR markedly elevated at 61 but not elevated in vasculitis range > not definitive but somewhat reassuring -repeat UACM and prot/creat clean catch show 300 mg proteinuria and ongoing blood and dipstick proteinuria along with ongoing pyuria and inflammation without evidence of infection -no urgent need for renal bx or coburn serologic w/u at this time (2) Hypotension: Plan: BP had been soft overnight/through the day > often in 90s > had one L NS -improved today; cxs remain negative >low threshold for TTE given malaise, generalized aches, hypotension, recent bacteremia (3) CKD (chronic kidney disease), stage III: Plan: baseline creatinine 1.7 > historically non protienuric CKD 3B; follows w/ Dr eLnz in CKD clinic. 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/possibly congenital per radiology reports versus duplicated R renal collecting system; present since at least 2018; not noted on [address] scans >stable; not likely a clinical issue here acutely Admission and Anticipated Discharge Date Admission Date: October 24, 2023 Subjective seen on afternoon rounds; feeling a bit better > able to hold head up more readily; sitting up in chair w/o c/o; one BM only since admission Review of Systems 2 Review of Systems: All systems reviewed & are unremarkable except as noted in Subjective Physical Exam 2 Constitutional: well developed, well nourished and cooperative; no acute distress Eyes: EOM intact bilaterally ENMT: Ears: no external ear abnormality Nose: no external nose abnormality Mouth: + dry oral mucous membranes Neck: no nuchal rigidity Respiratory: normal respiratory effort Auscultation: + diminished lung sounds Cardiovascular: Rate/Rhythm: regular rate and regular rhythm Extremities: n o edema Gastrointestinal (Abdomen): Inspection/Auscultation: normal bowel sounds P ercussion/Palpation: abdomen soft; abdomen nontender Musculoskeletal: Extremities: strength 5/5 throughout Skin: no rashes, warm and dry Results & Data Vital Signs (Past 12 Hours) Vital Signs Temp Pulse Pulse Resp BP Pulse Ox O2 Del Method 10/26/23 08:34 36.7 C 75 18 108/69 93 Nasal Cannula 10/26/23 07:10 79 10/26/23 03:59 36.7 C 77 18 106/67 98 Nasal Cannula 10/25/23 22:48 36.3 C L 75 18 100/57 L 94 Room Air 10/25/23 22:44 75 21 95 O2 Flow Rate 10/26/23 08:34 4 10/26/23 07:10 10/26/23 03:59 4 10/25/23 22:48 10/25/23 22:44 3 Laboratory Results 10/26/23 06:39 10/26/23 06:39 (4) Hydronephrosis Hydronephrosis type: unspecified Qualified Code(s): N13.30 - Unspecified hydronephrosis
[2023-10-26] MEDS: DULoxetine HCL 30 MG CAP PO SCH (09:32)
[2023-10-26] MEDS: PANTOprazole 40 MG TAB PO SCH (09:33)
[2023-10-26] MEDS: ASPIRIN 81 MG ECTAB PO SCH (09:33)
[2023-10-26] MEDS: GABAPENTIN 600 MG TAB PO SCH ×3 (09:33→20:58)
[2023-10-26] MEDS: DULoxetine HCL 60 MG CAP PO SCH (09:33)
[2023-10-26] MEDS: CLOPIDOGREL BISULFATE 75 MG TAB PO SCH (09:33)
[2023-10-26] MEDS: ATORVASTATIN 20 MG TAB PO SCH (09:33)
[2023-10-26] MEDS: DOCUSATE SODIUM/SENNA 50/8.6MG TAB PO SCH ×2 (09:33→20:58)
[2023-10-26] MEDS: CEFDINIR 300 MG CAP PO SCH ×2 (09:34→20:58)
[2023-10-26] MEDS: APIXABAN 2.5 MG TAB PO SCH ×2 (09:34→20:58)
[2023-10-26] MEDS: clonazePAM 0.5 MG TAB PO SCH ×2 (09:43→20:58)
[2023-10-26] MEDS: LANTUS PER UNIT CHARGE SQ SCH ×2 (09:43→20:57)
[2023-10-26] MEDS: INSULIN ASPART PER UNIT CHARGE SC SCH ×4 (09:44→20:57)
[2023-10-26 11:19] LABS: Cdiff Toxin B Gene (2yr or >) Positive Cdiff Gene (Neg)
[2023-10-26 11:47] LABS: Adenovirus F 40/41 PCR Not Detected (NotDetected); Astrovirus PCR Not Detected (NotDetected); Campylobacter PCR Not Detected (NotDetected); Cryptosporidium PCR Not Detected (NotDetected); Cyclospora cayetanensis PCR Not Detected (NotDetected); Entamoeba histolytica PCR Not Detected (NotDetected); Enteroaggregative E.coli(EAEC) Not Detected (NotDetected); Enteropathogenic E.coli (EPEC) Not Detected (NotDetected); Enterotoxigenic E.coli (ETEC) Not Detected (NotDetected); Giardia lamblia PCR Not Detected (NotDetected); Norovirus GI/GII PCR Not Detected (NotDetected); Plesiomonas shigelloides PCR Not Detected (NotDetected); Rotavirus A PCR Not Detected (NotDetected); Salmonella PCR Not Detected (NotDetected); Sapovirus PCR Not Detected (NotDetected); Shiga-like Toxin E.coli (STEC) Not Detected (NotDetected); Shigella/Enteroinvasive E.coli Not Detected (NotDetected); Vibrio cholerae PCR Not Detected (NotDetected); Vibrio species PCR Not Detected (NotDetected); Yersinia enterocolitica PCR Not Detected (NotDetected)
[2023-10-26] MEDS: ADVANCED PROBIOTIC 1250 MG CAPSULE PO SCH (11:55)
[2023-10-26 12:15] LABS: Cdiff Antigen Negative; Cdiff Toxin A+B Negative Cdiff Toxin (Negative)
[2023-10-26] MEDS ORDERED: MICONAZOLE NITRATE POWDER 85 GM EXT PRN (13:26)
--- NOTE | 2023-10-26 15:22 | Hospitalist Progress Note ---
Date of Service October 26, 2023 Assessment & Plan (1) Weakness: Plan: Abdominal pain, diarrhea Likely overflow diarrhea due to fecal retention Recent hospitalization for bacteremia treated with antibiotics --CT ABD:There is postoperative change from sigmoid colon resection with colocolonic anastomosis. No bowel obstruction is seen. There is mild to moderate colonic fecal retention. Duodenal diverticula are incidentally noted. The appendix is well-visualized and normal. There is no intraperitoneal free air or abdominal ascites. There is a fat-containing umbilical hernia. There is diastases of the rectus musculature with protrusion of abdominal contents. There is a also a small hernia in the right central pelvis seen on image #308. Moderate right-sided hydronephrosis is similar to previous and likely represents a UPJ type obstruction. There is asymmetric right-sided perinephric stranding. Correlate with clinical findings and urinalysis or evidence of superimposed urinary tract infection. Hepatomegaly. --Stool study showed: Positive C. difficile gene, negative toxin but otherwise negative for infection Continue bowel regimen Gentle IV fluids as needed Advance diet as tolerated Added p.o. 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 Will hold her lasix with ongoing diarrhea Monitor volume status Resume diuretics as able (4) Polypharmacy: Plan: Likely contributing to weakness. Mood disorder Fibromyalgia Restless leg syndrome Patient states medications were unchanged recently and has been on them for a long time (trazodone, clonazepam, duloxetine) Continue home medications Hold pain medications for excessive sedation Carotid artery disease S/P transcarotid artery revascularization in 09/06/23 On aspirin, Plavix, Lipitor Also on Eliquis (H/O PE, DVT S/P IVC Filter)--recently decreased dose to 2.5 mg twice daily by PCP (5) Type 2 diabetes, uncontrolled, with neuropathy: Plan: Hold home agents Continue insulin while hospitalized Monitor blood glucose levels (6) Abnormal finding on urinalysis: Plan: Management as above (7) Sleep apnea: Plan: Chronic, compliant with CPAP qHS Chronic hypoxic respiratory failure--on 3 L supplemental oxygen at baseline H/O interstitial lung disease (8) CKD (chronic kidney disease), stage III: Plan: Management as above (9) Hypothyroidism: Plan: Postsurgical hypothyroidism Hyperparathyroidism secondary to CKD chronic, stable. Continue levothyroxine (10) Depression with anxiety: Plan: Continue home medications (11) Presence of IVC filter: (12) Morbid obesity: Plan: BMI 46 continues on Mounjaro CODE STATUS Full code DVT Px: Eliquis Admission and Anticipated Discharge Date Admission Date: October 24, 2023 Subjective Patient is seen and examined at bedside States having 1 bowel movement Also reports abdominal discomfort No other complaints Denies any chest pain, dyspnea Review of Systems Review of Systems: All systems reviewed & are unremarkable except as noted in Subjective Physical Exam Physical Exam: Physical Exam: Vitals signs as noted above General Appearance:Obese, no apparent distress Head: normocephalic, Atraumatic Eyes: normal inspection, EOMI Neck: supple, Trachea midline Respiratory/Chest: Normal breath sounds, minimal basal crackles, No accessory muscle use Cardiovascular: S1, S2, No murmur Abdomen/GI:Soft, mild RLQ tender, + abdominal wall hernia, bowel sounds present Extremities/Musculoskeletal:normal inspection, RLE Chronic edema--chronic unchanged per patient Neurologic/Psych:AAOX3, grossly no focal neurological deficits Skin: normal color, warm Results & Data Results & Data Vital Signs (Past 12 Hours) Vital Signs Temp Pulse Pulse Resp BP Pulse Ox O2 Del Method 10/26/23 12:03 37.0 C 76 18 108/53 L 95 Nasal Cannula 10/26/23 10:33 Nasal Cannula 10/26/23 08:34 36.7 C 75 18 108/69 93 Nasal Cannula 10/26/23 07:10 79 10/26/23 03:59 36.7 C 77 18 106/67 98 Nasal Cannula O2 Flow Rate 10/26/23 12:03 4 10/26/23 10:33 4 10/26/23 08:34 4 10/26/23 07:10 10/26/23 03:59 4 Laboratory Results Short CBC 10/26/23 Range/Units 06:39 WBC 8.78 (4.8-10.8) K/ul Hgb 9.4 L (12.0-16.0) g/dl Hct 30.7 L (37.0-47.0) % Plt Count 289 (130-400) K/uL BMP 10/26/23 06:39 Sodium 138 Potassium 3.6 Chloride 100 Carbon Dioxide 31 BUN 26 H Creatinine 1.43 H D Glucose 126 H Calcium 9.2 Urine 10/25/23 Range/Units 18:35 Urine Color Yellow Urine Appearance Cloudy A (Clear) Urine pH 5.5 (4.5-7.5) Ur Specific [place] 1.013 (1.000-1.030) Urine Protein Trace H (Negative) Urine Glucose (UA) Negative (Negative) (2) Diarrhea Diarrhea type: unspecified type Qualified Code(s): R19.7 - Diarrhea, unspecified (3) CHF (congestive heart failure) Heart failure chronicity: acute on chronic Heart failure type: unspecified Qualified Code(s): I50.9 - Heart failure, unspecified
[2023-10-26] MEDS: VANCOMYCIN HCL 125 MG/2.5ML SOLN PO SCH (18:24)
[2023-10-26] MEDS: CHERRY SYRUP 5 ML UDP PO SCH (18:24)
[2023-10-26] MEDS: rOPINIRole HCL 2 MG TABLET PO SCH (20:58)
[2023-10-26] MEDS: traZODone HCL 100 MG TAB PO SCH (20:58)
[2023-10-27] MEDS: CHERRY SYRUP 5 ML UDP PO SCH ×4 (00:13→17:59)
[2023-10-27] MEDS: VANCOMYCIN HCL 125 MG/2.5ML SOLN PO SCH ×4 (00:13→17:54)
[2023-10-27] MEDS: LEVOTHYROXINE SODIUM 50 MCG TABLET PO SCH (05:43)
[2023-10-27] MEDS: LEVOTHYROXINE SODIUM 200 MCG TABLET PO SCH (05:43)
[2023-10-27] MEDS: oxyCODONE HCL IR 5 MG TAB (IMMEDIATE RELEASE) PO PRN ×2 (05:53→20:34)
[2023-10-27 07:12] LABS: Hematocrit (blood only) 30.8 % (37.0-47.0); Hemoglobin 9.6 g/dl (12.0-16.0); Mean Corpuscular Hemoglobin 27.8 pg (25.0-34.0); Mean Corpuscular Hgb Conc 31.2 g/dL (32.0-36.0); Mean Corpuscular Volume 89.3 fL (80.0-100.0); Mean Platelet Volume 10.4 fL (9.4-12.4); Platelet Count 293 K/uL (130-400); RDW Coefficient of Variation 14.1 % (11.5-14.5); Red Blood Count 3.45 M/uL (4.20-5.40); White Blood Count 8.63 K/ul (4.8-10.8)
[2023-10-27 07:50] LABS: BUN Creatinine Ratio 15.6 (10-20); Calcium 9.2 mg/dl (8.6-10.3); Creatinine Clr Calc Pharmacy 51.1 ml/min; Est GFR (African American) 44.3 ml/min; Est GFR (Non-African American) 38.2 ml/min; Potassium 3.4 mmol/L (3.5-5.1)
[2023-10-27] MEDS: DULoxetine HCL 30 MG CAP PO SCH (08:45)
[2023-10-27] MEDS: CLOPIDOGREL BISULFATE 75 MG TAB PO SCH (08:45)
[2023-10-27] MEDS ORDERED: POTASSIUM CHLORIDE CRTAB 20 MEQ TABCR PO ONE (08:45)
[2023-10-27] MEDS: ATORVASTATIN 20 MG TAB PO SCH (08:45)
[2023-10-27] MEDS: DULoxetine HCL 60 MG CAP PO SCH (08:45)
[2023-10-27] MEDS: ADVANCED PROBIOTIC 1250 MG CAPSULE PO SCH (08:45)
[2023-10-27] MEDS: ASPIRIN 81 MG ECTAB PO SCH (08:45)
[2023-10-27] MEDS: PANTOprazole 40 MG TAB PO SCH (08:45)
[2023-10-27] MEDS: APIXABAN 2.5 MG TAB PO SCH ×2 (08:46→20:37)
[2023-10-27] MEDS: CEFDINIR 300 MG CAP PO SCH (08:46)
[2023-10-27] MEDS: GABAPENTIN 600 MG TAB PO SCH ×3 (08:47→20:36)
[2023-10-27] MEDS: LANTUS PER UNIT CHARGE SQ SCH ×2 (08:58→20:33)
[2023-10-27] MEDS: INSULIN ASPART PER UNIT CHARGE SC SCH ×4 (08:58→20:33)
--- NOTE | 2023-10-27 10:04 | Nephrology Progress Note ---
Date of Service October 27, 2023 Assessment & Plan (1) Abnormal finding on urinalysis: Plan: new microhematuria, pyuria, and proteinuria on dipstick on specimen full of skin cells and w/ notable inflammation though no evidence of infection. This is presenting 3 wks after completing course of abtx for Klebsiella bacteremia/pyelonephritis. DDx includes post infectious GN (though Klebsiella is not particularly known to do this), IgA vasculitis or C3 GN or less likely a lupus GN or IgA nephropathy >> any/all of these can be provoked/brought out by antecedent illness. would expect with most of these dxs more robust blood pressure, even HTN. My index of suspicion is low for these. Likeliest cause is antiplatelet and anticoagulation therapy, new/intensified since August carotid procedure However these new findings certainly need to be followed carefully. -f/u pending complement levels; ESR markedly elevated at 61 but not elevated in vasculitis range > not definitive but somewhat reassuring -repeat UACM and prot/creat clean catch show 300 mg proteinuria and ongoing blood and dipstick proteinuria along with ongoing pyuria and inflammation without evidence of infection -no urgent need for renal bx or coburn serologic w/u at this time Will sign off; care coordinated with Dr. Borden Nephrology discharge recommendations - resume OP lasix tomorrow or day after with bid17 dosing bASIC metabolic panel at 1 week follow-up with PCP Hospital discharge appointment with Dr. Delfin Champion 3 weeks after hospital discharge with basic metabolic panel, urinalysis with microscopy, ACR to be ordered by nephro nurse and drawn no more than 3 to 5 days before appointment (2) CKD (chronic kidney disease), stage III: Plan: baseline creatinine 1.7 > historically non protienuric CKD 3B; follows w/ Dr Lenz in CKD clinic. had stage 1 ELSIE last month w/ pyelonephritis admission -Currently better than baseline since she is off of lasix and diarrhea has resolved -daily bmp while in house -resume OP lasix tomorrow -resumed OP K today (20 mEq bid), in addition to the 40 mEq she had x 1 today to start this evening (3) Hypotension: Plan: Improving past 48 hours. BP had been soft overnight/through the day > often in 90s > had one L NS -improved today; cxs remain negative though she is positive for C. difficile gene >low threshold for TTE given malaise, generalized aches, hypotension, recent bacteremia (4) Hydronephrosis: Plan: R sided hydronephrosis reflecting chronic UPJ obstruction likely/possibly congenital per radiology reports versus duplicated R renal collecting system; present since at least 2018; not noted on [address] scans >stable; not likely a clinical issue here acutely Admission and Anticipated Discharge Date Admission Date: October 24, 2023 Subjective 1 BM overnight, no shortness of breath. Some mild abdominal pain and decreased flatulence. Edema controlled but leg pain starting (saw her after she had been sitting up for several hours which she says can cause this pain). Patient wondering if antiplatelet therapy/anticoagulants contribute to new hematuria. Ambulated with PT today Review of Systems 2 Review of Systems: All systems reviewed & are unremarkable except as noted in Subjective Physical Exam 2 Constitutional: well developed (Up in chair on O2 NC ), well nourished and cooperative; no acute distress Eyes: EOM intact bilaterally ENMT: Ears: no external ear abnormality Nose: no external nose abnormality Mouth: + dry oral mucous membranes Neck: no nuchal rigidity Respiratory: normal respiratory effort Auscultation: + diminished lung sounds Cardiovascular: Rate/Rhythm: regular rate and regular rhythm Extremities: n o edema Gastrointestinal (Abdomen): Inspection/Auscultation: normal bowel sounds P ercussion/Palpation: abdomen soft; abdomen nontender Musculoskeletal: Extremities: strength 5/5 throughout Skin: no rashes, warm and dry Results & Data Vital Signs (Past 12 Hours) Vital Signs Temp Pulse Pulse Resp BP Pulse Ox O2 Del Method 10/27/23 07:55 37.1 C 87 18 114/68 96 Nasal Cannula 10/27/23 07:34 85 10/27/23 03:30 36.7 C 80 18 107/63 96 Nasal Cannula 10/26/23 23:07 100 H 10/26/23 22:12 37.0 C 83 16 141/83 H 97 Nasal Cannula O2 Flow Rate 10/27/23 07:55 4 10/27/23 07:34 10/27/23 03:30 10/26/23 23:07 10/26/23 22:12 4 Laboratory Results 10/27/23 06:25 10/27/23 06:25 (4) Hydronephrosis Hydronephrosis type: unspecified Qualified Code(s): N13.30 - Unspecified hydronephrosis
[2023-10-27] MEDS: clonazePAM 0.5 MG TAB PO SCH ×2 (10:07→20:34)
[2023-10-27] MEDS: DOCUSATE SODIUM/SENNA 50/8.6MG TAB PO SCH ×2 (10:08→20:36)
[2023-10-27] MEDS ORDERED: POTASSIUM CHLORIDE CRTAB 20 MEQ TABCR PO SCH (10:15)
[2023-10-27 12:57] LABS: Complement C3 162 mg/dL (83-193)
--- NOTE | 2023-10-27 16:01 | Hospitalist Progress Note ---
Date of Service October 27, 2023 Assessment & Plan (1) Weakness: Plan: Abdominal pain, diarrhea Likely overflow diarrhea due to fecal retention Recent hospitalization for bacteremia treated with antibiotics --CT ABD:There is postoperative change from sigmoid colon resection with colocolonic anastomosis. No bowel obstruction is seen. There is mild to moderate colonic fecal retention. Duodenal diverticula are incidentally noted. The appendix is well-visualized and normal. There is no intraperitoneal free air or abdominal ascites. There is a fat-containing umbilical hernia. There is diastases of the rectus musculature with protrusion of abdominal contents. There is a also a small hernia in the right central pelvis seen on image #308. Moderate right-sided hydronephrosis is similar to previous and likely represents a UPJ type obstruction. There is asymmetric right-sided perinephric stranding. Correlate with clinical findings and urinalysis or evidence of superimposed urinary tract infection. Hepatomegaly. --Stool study showed: Positive C. difficile gene, negative toxin but otherwise negative for infection Continue bowel regimen Gentle IV fluids as needed Tolerating regular diet Added p.o. 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 CKD III Appreciate nephrology help for further workup Monitor renal function Avoid nephrotoxic agents as able Cr 1.4 today Patient on dual antiplatelet therapy (aspirin, Plavix), anticoagulation with Eliquis (PCP decreased the dose recently to 2.5 mg twice daily) Advised to discuss with vascular surgery/PCP to adjust her DAPT, Eliquis to minimize microscopic hematuria Needs basic metabolic panel in 1 week upon discharge Needs follow-up with nephrology on discharge Resume Lasix as able once diarrhea improves in 1-2 days Chronic obstructive uropathy Right-sided hydronephrosis on CT--chronic unchanged Bladder scan as needed Will advise follow-up with urology as outpatient (2) Diarrhea: Plan: Management as above (3) CHF (congestive heart failure): Plan: chronic, stable. Will hold her lasix with ongoing diarrhea Monitor volume status Resume diuretics as able (4) Polypharmacy: Plan: Likely contributing to weakness. Mood disorder Fibromyalgia Restless leg syndrome Patient states medications were unchanged recently and has been on them for a long time (trazodone, clonazepam, duloxetine) Continue home medications Hold pain medications for excessive sedation Carotid artery disease S/P transcarotid artery revascularization in 09/06/23 On aspirin, Plavix, Lipitor Also on Eliquis (H/O PE, DVT S/P IVC Filter)--recently decreased dose to 2.5 mg twice daily by PCP (5) Type 2 diabetes, uncontrolled, with neuropathy: Plan: Hold home agents Continue insulin while hospitalized Monitor blood glucose levels (6) Abnormal finding on urinalysis: Plan: Management as above (7) Sleep apnea: Plan: Chronic, compliant with CPAP qHS Chronic hypoxic respiratory failure--on 3 L supplemental oxygen at baseline H/O interstitial lung disease (8) CKD (chronic kidney disease), stage III: Plan: Management as above (9) Hypothyroidism: Plan: Postsurgical hypothyroidism Hyperparathyroidism secondary to CKD chronic, stable. Continue levothyroxine (10) Depression with anxiety: Plan: Continue home medications (11) Presence of IVC filter: (12) Morbid obesity: Plan: BMI 46 continues on Mounjaro CODE STATUS Full code DVT Px: Eliquis Disposition Rehab when accepted Case management to help with discharge plan Admission and Anticipated Discharge Date Admission Date: October 24, 2023 Subjective Patient is seen and examined at bedside Had 1 bowel movement yesterday but none this morning Still has some abdominal discomfort Discussed with nephrology today next Denies any chest pain, dyspnea, dizziness, nausea, vomiting Review of Systems Review of Systems: All systems reviewed & are unremarkable except as noted in Subjective Physical Exam Physical Exam: Physical Exam: Vitals signs as noted above General Appearance:Obese, no apparent distress Head: normocephalic, Atraumatic Eyes: normal inspection, EOMI Neck: supple, Trachea midline Respiratory/Chest: Normal breath sounds, minimal basal crackles, No accessory muscle use Cardiovascular: S1, S2, No murmur Abdomen/GI:Soft, non tender, + abdominal wall hernia, bowel sounds present Extremities/Musculoskeletal:normal inspection, RLE Chronic edema--chronic unchanged per patient Neurologic/Psych:AAOX3, grossly no focal neurological deficits Skin: normal color, warm Results & Data Results & Data Vital Signs (Past 12 Hours) Vital Signs Temp Pulse Pulse Resp BP Pulse Ox O2 Del Method 10/27/23 15:37 36.7 C 80 16 99/53 L 96 Nasal Cannula 10/27/23 11:36 36.8 C 80 18 144/67 H 97 Nasal Cannula 10/27/23 08:00 Nasal Cannula 10/27/23 07:55 37.1 C 87 18 114/68 96 Nasal Cannula 10/27/23 07:34 85 O2 Flow Rate 10/27/23 15:37 4 10/27/23 11:36 4 10/27/23 08:00 4 10/27/23 07:55 4 10/27/23 07:34 Laboratory Results Short CBC 10/27/23 Range/Units 06:25 WBC 8.63 (4.8-10.8) K/ul Hgb 9.6 L (12.0-16.0) g/dl Hct 30.8 L (37.0-47.0) % Plt Count 293 (130-400) K/uL BMP 10/27/23 06:25 Sodium 137 Potassium 3.4 L Chloride 100 Carbon Dioxide 30 BUN 22 Creatinine 1.41 H Glucose 182 H Calcium 9.2 (2) Diarrhea Diarrhea type: unspecified type Qualified Code(s): R19.7 - Diarrhea, unspecified (3) CHF (congestive heart failure) Heart failure chronicity: acute on chronic Heart failure type: unspecified Qualified Code(s): I50.9 - Heart failure, unspecified
[2023-10-27] MEDS: traZODone HCL 100 MG TAB PO SCH (20:36)
[2023-10-27] MEDS: POTASSIUM CHLORIDE CRTAB 20 MEQ TABCR PO SCH (20:37)
[2023-10-27] MEDS: rOPINIRole HCL 2 MG TABLET PO SCH (20:37)
[2023-10-28] MEDS: VANCOMYCIN HCL 125 MG/2.5ML SOLN PO SCH ×3 (00:02→11:39)
[2023-10-28] MEDS: CHERRY SYRUP 5 ML UDP PO SCH ×3 (00:03→11:39)
[2023-10-28] MEDS: oxyCODONE HCL IR 5 MG TAB (IMMEDIATE RELEASE) PO PRN (04:29)
[2023-10-28] MEDS: LEVOTHYROXINE SODIUM 50 MCG TABLET PO SCH (05:56)
[2023-10-28] MEDS: LEVOTHYROXINE SODIUM 200 MCG TABLET PO SCH (06:07)
[2023-10-28 07:00] LABS: Hematocrit (blood only) 33.1 % (37.0-47.0); Hemoglobin 9.8 g/dl (12.0-16.0); Mean Corpuscular Hemoglobin 26.8 pg (25.0-34.0); Mean Corpuscular Hgb Conc 29.6 g/dL (32.0-36.0); Mean Corpuscular Volume 90.4 fL (80.0-100.0); Platelet Count 349 K/uL (130-400); RDW Coefficient of Variation 13.9 % (11.5-14.5); RDW Standard Deviation 46.4 fL (36.4-46.3); Red Blood Count 3.66 M/uL (4.20-5.40); White Blood Count 8.32 K/ul (4.8-10.8)
--- NOTE | 2023-10-28 07:19 | Hospitalist Progress Note ---
Date of Service October 28, 2023 Assessment & Plan (1) Weakness: Plan: Abdominal pain, diarrhea Likely overflow diarrhea due to fecal retention Recent hospitalization for bacteremia treated with antibiotics --CT ABD:There is postoperative change from sigmoid colon resection with colocolonic anastomosis. No bowel obstruction is seen. There is mild to moderate colonic fecal retention. Duodenal diverticula are incidentally noted. The appendix is well-visualized and normal. There is no intraperitoneal free air or abdominal ascites. There is a fat-containing umbilical hernia. There is diastases of the rectus musculature with protrusion of abdominal contents. There is a also a small hernia in the right central pelvis seen on image #308. Moderate right-sided hydronephrosis is similar to previous and likely represents a UPJ type obstruction. There is asymmetric right-sided perinephric stranding. Correlate with clinical findings and urinalysis or evidence of superimposed urinary tract infection. Hepatomegaly. --Stool study showed: Positive C. difficile gene, negative toxin but otherwise negative for infection Continue bowel regimen Gentle IV fluids as needed Tolerating regular diet Added p.o. vancomycin empirically Hold magnesium oxide likely contributing to diarrhea Monitor volume status #Generalized weakness Likely deconditioning due to prolonged hospitalization recently Ruled out infectious source Outpatient TSH normal within normal limits per record Fall precautions PT OT as able #abnormal UA, new microscopic hematuria, pyuria, proteinuria #CKD III B Recently completed antibiotic treatment for Klebsiella UTI/pyelonephritis Per nephrology, ?postinfectious glomerulonephritis,IGA vasculitis, however, most would have more "robust blood pressure" per Nephrology Suspicion is thought to be on antiplatelet and anticoagulation therapy Nephrology recommendations -Resume OP lasix BID -BMP in 1 week with follow up PCP -Resumed OP K 20meq BID -Follow up Dr. Lenz in 3 weeks with labs Monitor renal function Avoid nephrotoxic agents as able Cr 1.4 today Patient on dual antiplatelet therapy (aspirin, Plavix), anticoagulation with Eliquis (PCP decreased the dose recently to 2.5 mg twice daily) Advised to discuss with vascular surgery/PCP to adjust her DAPT, Eliquis to minimize microscopic hematuria #Chronic obstructive uropathy #Right-sided hydronephrosis on CT--chronic unchanged Bladder scan as needed Consult to Urology, any further intervention, imaging to evaluate new UA findings UTI ruled out Blood culture negative to date Urine culture negative Discontinue Omnicef (2) Diarrhea: Plan: Management as above (3) CHF (congestive heart failure): Plan: chronic, stable. Will hold her lasix with ongoing diarrhea Monitor volume status Resume diuretics as able (4) Polypharmacy: Plan: Likely contributing to weakness. Mood disorder Fibromyalgia Restless leg syndrome Patient states medications were unchanged recently and has been on them for a long time (trazodone, clonazepam, duloxetine) Continue home medications Hold pain medications for excessive sedation Carotid artery disease S/P transcarotid artery revascularization in 09/06/23 On aspirin, Plavix, Lipitor Also on Eliquis (H/O PE, DVT S/P IVC Filter)--recently decreased dose to 2.5 mg twice daily by PCP (5) Type 2 diabetes, uncontrolled, with neuropathy: Plan: Hold home agents Continue insulin while hospitalized Monitor blood glucose levels (6) Abnormal finding on urinalysis: Plan: Management as above (7) Sleep apnea: Plan: Chronic, compliant with CPAP qHS Chronic hypoxic respiratory failure--on 3 L supplemental oxygen at baseline H/O interstitial lung disease (8) CKD (chronic kidney disease), stage III: Plan: Management as above (9) Hypothyroidism: Plan: Postsurgical hypothyroidism Hyperparathyroidism secondary to CKD chronic, stable. Continue levothyroxine (10) Depression with anxiety: Plan: Continue home medications (11) Presence of IVC filter: (12) Morbid obesity: Plan: BMI 46 continues on Mounjaro CODE STATUS Full code DVT Px: Eliquis Disposition Rehab when accepted Case management to help with discharge plan Admission and Anticipated Discharge Date Admission Date: October 24, 2023 Results & Data Results & Data Vital Signs (Past 12 Hours) Vital Signs Temp Pulse Pulse Resp BP Pulse Ox O2 Del Method 10/28/23 07:00 70 10/28/23 03:07 36.8 C 72 18 116/62 97 Nasal Cannula 10/27/23 23:47 36.7 C 79 18 114/52 L 98 Nasal Cannula 10/27/23 21:59 80 10/27/23 20:30 Nasal Cannula 10/27/23 19:47 36.8 C 81 20 144/68 H 99 Nasal Cannula O2 Flow Rate 10/28/23 07:00 10/28/23 03:07 4 10/27/23 23:47 4 10/27/23 21:59 10/27/23 20:30 4 10/27/23 19:47 4 (2) Diarrhea Diarrhea type: unspecified type Qualified Code(s): R19.7 - Diarrhea, unspecified (3) CHF (congestive heart failure) Heart failure chronicity: acute on chronic Heart failure type: unspecified Qualified Code(s): I50.9 - Heart failure, unspecified
[2023-10-28 07:37] LABS: BUN Creatinine Ratio 12.6 (10-20); Calcium 9.5 mg/dl (8.6-10.3); Creatinine Clr Calc Pharmacy 45.4 ml/min; Est GFR (African American) 38.3 ml/min; Magnesium 1.7 mg/dl (1.7-2.4); Potassium 4.3 mmol/L (3.5-5.1)
[2023-10-28] MEDS: ADVANCED PROBIOTIC 1250 MG CAPSULE PO SCH (09:09)
[2023-10-28] MEDS: ATORVASTATIN 20 MG TAB PO SCH (09:10)
[2023-10-28] MEDS: APIXABAN 2.5 MG TAB PO SCH (09:10)
[2023-10-28] MEDS: GABAPENTIN 600 MG TAB PO SCH ×2 (09:10→12:47)
[2023-10-28] MEDS: CLOPIDOGREL BISULFATE 75 MG TAB PO SCH (09:11)
[2023-10-28] MEDS: ASPIRIN 81 MG ECTAB PO SCH (09:11)
[2023-10-28] MEDS: DOCUSATE SODIUM/SENNA 50/8.6MG TAB PO SCH (09:11)
[2023-10-28] MEDS: POTASSIUM CHLORIDE CRTAB 20 MEQ TABCR PO SCH (09:11)
[2023-10-28] MEDS: PANTOprazole 40 MG TAB PO SCH (09:11)
[2023-10-28] MEDS: DULoxetine HCL 60 MG CAP PO SCH (09:12)
[2023-10-28] MEDS: DULoxetine HCL 30 MG CAP PO SCH (09:12)
[2023-10-28] MEDS: INSULIN ASPART PER UNIT CHARGE SC SCH ×2 (09:17→12:47)
[2023-10-28] MEDS: clonazePAM 0.5 MG TAB PO SCH (09:17)
[2023-10-28] MEDS: LANTUS PER UNIT CHARGE SQ SCH (09:18)
--- NOTE | 2023-10-28 09:45 | Urology Consultation ---
Date of Consultation October 28, 2023 Assessment & Plan (1) Hydronephrosis: (2) Abnormal finding on urinalysis: 68 yo/F admitted for abdominal pain, diarrhea and weakness. Urology is consulted for UPJ obstruction, microscopic hematuria Afebrile and hemodynamically stable Labscreatinine 1.59, WBC 8.32, hemoglobin 9.8 CT imaging reviewed and discussed moderate right-sided hydronephrosis, right ureter normal in caliber with no obstructing stones visualized, appears similar to previous exams and likely represents a UPJ obstruction, there is right-sided perinephric stranding Right UPJ obstruction appears chronic/stable She is afebrile and without flank pain Urine and blood cultures from admission showed no growth No acute intervention at this time She does have microscopic hematuria on multiple UAs-- recommend outpatient hematuria work-up Patient also evaluated by nephrology for microhematuria and proteinuriapossible postinfectious GN or other vasculitis or nephropathy Continue supportive care and medical management per hospital medicine service Will arrange outpatient follow-up with our service will sign off, contact us with any additional questions or concerns History of Present Illness Attending Physician: Keya Adorno MD History of Present Illness This is a 68-year-old female with past medical history of morbid obesity, type 2 diabetes, chronic hypoxic respiratory failure on supplemental oxygen, interstitial lung disease, obstructive sleep apnea on CPAP, CHF, CKD, history of DVT and PE, and multiple other comorbidities who presented to the emergency department on 10/24/2023 with complaint of abdominal pain, diarrhea, and weakness. She was admitted to the medicine service for diarrhea and weakness. She was hospitalized 09/19/2023 through 10/02/2023 with Klebsiella oxytoca UTI, pyelonephritis and bacteremia. She was treated with ceftriaxone then ciprofloxacin for 14 days to complete on 10/03/2023 per ID recommendations. Urology consulted for UPJ obstruction, microscopic hematuria. CT A/P 10/24/2023 showed moderate right-sided hydronephrosis, right ureter is normal in caliber with no obstructing stones visualized, appears similar to previous exams and likely representing a UPJ obstruction, there is right-sided perinephric stranding. UA + protein, 3+ blood, 3+ leukocyte esterase, >30 WBC, >30 RBC, greater than 30 epithelial cells, negative bacteria UA 10/25/2023trace protein, 2+ blood, 1+ leukocyte Estrace, >30 WBC, 10-30 RBC, >30 epithelials, negative bacteria Urine culture 10/24/2023 with more than 3 types of organisms present, all high counts mixed probable skin jaylin Blood cultures 10/24/2023 no growth x 48 hours Urine culture 10/25/2023 showed no growth Patient seen and examined at bedside. She is awake, alert and sitting up in bedside chair. Denies flank pain. Continues to have some abdominal pain. Voiding without difficulty. No dysuria or gross hematuria. Denies nausea, vomiting, fever or chills. Reports history of UTIs. Former history of tobacco use, quit in 1996. Denies history of stones. No known family history of malignancy. Allergies Allergy/AdvReac Type Severity Reaction Status Date / Time morphine Allergy Severe Swelling, Verified 10/24/23 17:29 "Violent reaction- almost " dapagliflozin [From Farxiga] Allergy Intermediate Yeast Verified 10/24/23 17:29 infections tetanus toxoid, adsorbed Allergy Intermediate Passed Verified 10/24/23 17:29 out, "got sick" as child bupropion [From Wellbutrin] AdvReac Intermediate Recurrent Verified 10/24/23 17:29 falls as per patient codeine AdvReac Intermediate Hallucinati Verified 10/24/23 17:29 ons empagliflozin AdvReac Intermediate Yeast Verified 10/24/23 17:29 [From Jardiance] infections heparin AdvReac Intermediate HIT, Verified 10/24/23 17:29 "Fluid in lungs" hydrocodone [From Vicodin] AdvReac Intermediate Drowsy Verified 10/24/23 17:29 Home Medications Medication Instructions Recorded Confirmed Type aspirin 81 mg tablet,delayed 81 mg PO DAILY 09/20/23 10/24/23 History release atorvastatin 20 mg tablet 20 mg PO DAILY 09/20/23 10/24/23 History baclofen 10 mg tablet 10 mg PO BID PRN Muscle Spasm 09/20/23 10/24/23 History clonazepam 0.5 mg tablet 0.5 mg PO BID 09/20/23 10/24/23 History clopidogrel 75 mg tablet 75 mg PO DAILY 09/20/23 10/24/23 History duloxetine 60 mg capsule,delayed See Rx Instructions .Route .COMPLEX 09/20/23 10/24/23 History release furosemide 40 mg tablet 60 mg PO BID 09/20/23 10/24/23 History gabapentin 300 mg capsule 600 mg PO TID 09/20/23 10/24/23 History insulin aspart U-100 100 unit/mL 8 unit subcut UD 09/20/23 10/24/23 History (3 mL) subcutaneous pen (Novolog FlexPen U-100 Insulin aspart) insulin degludec 100 unit/mL (3 50 unit subcut HS 09/20/23 10/24/23 History mL) subcutaneous pen (Tresiba FlexTouch U-100 insulin) levothyroxine 200 mcg tablet See Rx Instructions .Route .COMPLEX 09/20/23 History levothyroxine 50 mcg tablet See Rx Instructions .Route .COMPLEX 09/20/23 10/24/23 History magnesium oxide 400 mg (241.3 mg 400 mg PO BID 09/20/23 10/24/23 History magnesium) tablet omeprazole 20 mg capsule,delayed 20 mg PO DAILY 09/20/23 10/24/23 History release oxycodone 5 mg tablet 5 mg PO Q6H PRN Pain 09/20/23 10/24/23 History potassium chloride 20 mEq 20 meq PO BID 09/20/23 10/24/23 History tablet,extended release(part/cryst) ropinirole 2 mg tablet 2 mg PO HS 09/20/23 10/24/23 History sennosides 8.6 mg-docusate sodium 1 tab PO BID 09/20/23 10/24/23 History 50 mg tablet (Senna-Time S) tirzepatide 5 mg/0.5 mL 5 mg subcut WK 09/20/23 10/24/23 History subcutaneous pen injector (Mounjaro) tramadol 50 mg tablet 50 mg PO TID PRN Pain 09/20/23 10/24/23 History trazodone 100 mg tablet 100 mg PO HS 09/20/23 10/24/23 History Vit D3 1000iu 200+50 Softge 1 tab PO QAM 10/24/23 10/24/23 History apixaban 2.5 mg tablet (Eliquis) 2.5 mg PO BID 10/24/23 10/24/23 History dicyclomine 20 mg tablet 20 mg PO QID PRN abdominal cramping 10/24/23 10/24/23 History duloxetine 30 mg capsule,delayed See Rx Instructions .Route .COMPLEX 10/24/23 10/24/23 History release triamcinolone acetonide 0.5 % 1 applic topical BID PRN chest rash 10/24/23 10/24/23 History topical cream Patient History Medical History Acute pyelonephritis Hypomagnesemia Mitral valve stenosis Echo 06/2023: Borderline mild mitral stenosis secondary to severe mitral annular calcification Chronic hypoxemic respiratory failure Cataract, bilateral Lumbago with sciatica Lower extremity pain, bilateral Neuropathy feet On home oxygen therapy 3L continuous CHF (congestive heart failure) Follows with Dr. Woodall Subclavian artery stenosis Cerebrovascular duplex study 06/2023: Retrograde flow in the right vertebral artery. 50-69% proximal right subclavian artery stenosis. Antegrade flow in the left vertebral artery. Normal flow in the left subclavian artery. Carotid stenosis, right Cerebrovascular duplex 07/11/23: 80-99% R ICA stenosis. No hemodynamically significant stenosis in the LICA. Diabetes mellitus, type II CKD (chronic kidney disease), stage III Follows with [facility] ELISSA on CPAP CPAP + 3L O2 (O2 is continuous) HTN (hypertension) HLD (hyperlipidemia) Morbid obesity HIT (heparin-induced thrombocytopenia) 2009, [facility] then life flight to [place] > "resolved" Depression with anxiety Hypothyroidism History of pulmonary embolism 2008 s/p zoraida filter GERD (gastroesophageal reflux disease) RLS (restless legs syndrome) History of DVT (deep vein thrombosis) 2008 (during ICU [place] admission/PNA) Presence of IVC filter 2008 Fibromyalgia Surgical History Family history of reaction to anesthesia Brother/niece- PONV Brother- "wakes up violent" History of colostomy reversal History of tooth extraction History of arthroscopy left ankle History of incisional hernia repair Nausea and vomiting after administration of anesthetic agent History of colonoscopy History of cholecystectomy History of total right knee replacement History of tracheostomy 06/2009 (per [facility] records), secondary to acute respiratory failure in setting of PNA, reversed a few months later History of thyroidectomy, total 2010 History of colon resection secondary to R colon perforation, resected treated with colostomy and eventual reversal in 2008, Dr. 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: No Beliefs That Will Affect Care: None marital status: Single Current Living Situation: Alone Current Living Situation Comment: Lives by self in apartment How many Children do You have: 0 Other Information That Helps Us Care for You: No Feels Safe at Home: Yes Safety Concerns: Feels Safe At This Time Assistive Devices: Oxygen - Continuous, Walker and Wheelchair Review of Systems Review of Systems: All systems reviewed & are unremarkable except as noted in HPI & below Physical Exam Constitutional: well developed, well nourished and + obese; no acute distress Eyes: no scleral abnormality Respiratory: normal respiratory effort; no respiratory distress and no labored breathing Gastrointestinal (Abdomen): Inspection/Auscultation: abdomen normal to inspection Musculoskeletal: Head/Neck/Chest: normocephalic Neurologic: moves all extremities and awake Psychiatric: Orientation: alert and oriented x 3 Results & Data Vital Signs (Past 12 Hours) Vital Signs Temp Pulse Pulse Resp BP Pulse Ox O2 Del Method 10/28/23 08:19 36.8 C 78 18 110/66 96 Nasal Cannula 10/28/23 07:00 70 10/28/23 03:07 36.8 C 72 18 116/62 97 Nasal Cannula 10/27/23 23:47 36.7 C 79 18 114/52 L 98 Nasal Cannula 10/27/23 21:59 80 O2 Flow Rate 10/28/23 08:19 4 10/28/23 07:00 10/28/23 03:07 4 10/27/23 23:47 4 10/27/23 21:59 PG Care Time/CCT Total # of Minutes Spent Total Time Spent with Patient: Total time spent is greater than 50% in coordination of care (as documented) at patient's floor/unit and/or counseling patient: Coding Level of Care Code 89674 INT INP/OBS CARE 2/55MIN Diagnoses Hydronephrosis N13.30 Hydronephrosis type: unspecified Abnormal finding on urinalysis R82.90 (1) Hydronephrosis Hydronephrosis type: unspecified Qualified Code(s): N13.30 - Unspecified hydronephrosis
--- NOTE | 2023-10-28 17:24 | Discharge Summary ---
Discharge Summary Date of Service October 28, 2023 Notes For Next Care Provider Medication Changes From Visit Vancomycin 125 q6h x 7 days Admission HPI Per Admitting Provider 68 yo F presents with weakness and ongoing diarrhea that began approximately one week after returning home from the hospital. She underwent a TCAR procedure for carotid disease by Dr. Tang on 09/06/23 w ithout issues. She was anemia at this time, and H/H hasn't seemed to recover with the additional hospitalization. Iron deficiency is present on outpatient labwork, also. Last CSP was in January 2016 revealing a normal end to end colonic anastomosis. She presented for LEONEL and UTI on 09/20 and was found to have sepsis acute pyelonephritis with bacteremia present. She was treated successfully with antibiotics and acute on chronic kidney disease was treated and was sent home with home health on 10/02/23. She went to see her outpatient physician on Tuesday for the diarrhea. Stool studies were ordered but she was unable to give a sample at that time. She reports ongoing watery, nonbloody diarrhea 3-4 times daily associated with a crampy R>L abdominal pain. Has a h/o complicated diverticulitis with partial colectomy in the past. +fevers, low appetite, denies vomiting, +diarrhea 3-4 episodes per day. She has a h/o partial colectomy on the right >10 yrs ago for complicated diverticulitis. Her overwhelming fatigue and increasing weakness and abdominal pain brought her here today. VSS reveal hypotension with BP 96/63 and HR 81. CBC reveals a leukocytosis to 14K and ongoing anemia. Although her H/H is not at her baseline, which is normal as of 6 months ago, it is stable to where it has been recently. Outpatient record review also reveals evidence of iron deficiency and PCP put her on iron supplementation which she has not yet started. Chem panel is reflective of mild dehydration and creatinine is at baseline. She may have a possible UTI with urine appearing turbid, 3+LE, +WBC, +RBC. She has evidence of new proteinuria. Principal Dx & Hospital Course #1 = Principal Diagnosis (1) Weakness: (2) Diarrhea: (3) CHF (congestive heart failure): (4) Polypharmacy: (5) Type 2 diabetes, uncontrolled, with neuropathy: (6) Abnormal finding on urinalysis: (7) Sleep apnea: (8) CKD (chronic kidney disease), stage III: (9) Hypothyroidism: (10) Depression with anxiety: (11) Presence of IVC filter: (12) Morbid obesity: Plan Ms. Camp is a 68 year old woman with complex medical history who was admitted for weakness and ongoing diarrhea that began approximately one week after returning home from the hospital. Patient was noted to have proteinuria, hematu elana, and pyuria on exam. UTI was ruled out and nephrology was consulted for concerns of glomerulonephritis. Patient's course otherwise notable for ongoing diarrhea. C diff gene was positive, and given symptoms, it was elected to start patient on PO vancomycin, with improvement in bowel symptoms. Nephrology ultimately thought the abnormal UA symptoms are likely secondary to ongoing DAPT and eliquis. Additionally, Urology was consulted to assess if further imaging needed to happen inpatient regarding imaging findings of ongoing UPJ obstruction and associated hydronephrosis. It was felt patient can follow up as an OP for further work up. Patient was to go to [facility] for rehab and it was strongly recommended; however, she noted that she had no one to care for "cats" and declined rehab r equesting home health services. On day of discharge, patient had one episode of controlled diarhea, but otherwise reported feeling stronger than admission. She denied chest pain, palpitations or other acute concerns. #Abdominal pain, diarrhea #Likely overflow diarrhea due to fecal retention #C. Difficle infection #IBS Recent hospitalization for bacteremia treated with antibiotics --CT ABD:There is postoperative change from sigmoid colon resection with colocolonic anastomosis. No bowel obstruction is seen. There is mild to moderate colonic fecal retention. Duodenal diverticula are incidentally noted. The appendix is well-visualized and normal. There is no intraperitoneal free air or abdominal ascites. There is a fat-containing umbilical hernia. There is diastases of the rectus musculature with protrusion of abdominal contents. There is a also a small hernia in the right central pelvis seen on image #308. Moderate right-sided hydronephrosis is similar to previous and likely represents a UPJ type obstruction. There is asymmetric right-sided perinephric stranding. Correlate with clinical findings and urinalysis or evidence of superimposed urinary tract infection. Hepatomegaly. --Stool study showed: Positive C. difficile gene, negative toxin but otherwise negative for infection Continue OP bowel regimen Continue PO vancomycin empirically x 7 days OP Enouraged OP follow up with PCP/consider GI #Generalized weakness Likely deconditioning due to prolonged hospitalization recently Ruled out infectious source Outpatient TSH normal within normal limits per record Fall precautions PT OT : home with home health #abnormal UA, new microscopic hematuria, pyuria, proteinuria #CKD III B Recently completed antibiotic treatment for Klebsiella UTI/pyelonephritis Per nephrology, ?postinfectious glomerulonephritis,IGA vasculitis, however, most would have more "robust blood pressure" per Nephrology Suspicion is thought to be on antiplatelet and anticoagulation therapy Nephrology recommendations -Resume OP lasix BID -BMP in 1 week with follow up PCP -Resumed OP K 20meq BID -Follow up Dr. Lenz in 3 weeks with labs Patient on dual antiplatelet therapy (aspirin, Plavix), anticoagulation with Eliquis (PCP decreased the dose recently to 2.5 mg twice daily) Advised to discuss with vascular surgery/PCP to adjust her DAPT, Eliquis to minimize microscopic hematuria #Chronic obstructive uropathy #Right-sided hydronephrosis on CT--chronic unchanged Bladder scan as needed Consult to Urology, any further intervention, imaging to evaluate new UA f indings -Plan for OP hematuria work up, Blood culture negative to date Urine culture negative #Chronic Heart failure with preserved EF Hold lasix and resume day after discharge Carotid artery disease S/P transcarotid artery revascularization in 09/06/23 On aspirin, Plavix, Lipitor Also on Eliquis (H/O PE, DVT S/P IVC Filter)--recently decreased dose to 2.5 mg twice daily by PCP #Type 2 diabetes, uncontrolled, with neuropathy: Resume home agents #ELISSA #Chronic hypoxic respiratory failure--on 3 L supplemental oxygen at baseline #H/O interstitial lung disease Chronic, compliant with CPAP qHS Continue Home O2 #CKD (chronic kidney disease), stage III: stable #Postsurgical hypothyroidism #Hyperparathyroidism secondary to CKD chronic, stable. Continue levothyroxine #Depression with anxiety: Continue home medications #Morbid obesity: BMI 46 continues on Mounjaro Continue all other home medications as prescribed. Discharge Exam Constitutional WD/WN, vitals as above conversational, alter oriented Respiratory normal respiratory effort, lungs clear to auscultation Cardiovascular RRR, no murmur Gastrointestinal (Abdomen) normal bowel sounds, soft, nontender, no hepatosplenomegaly Musculoskeletal bilateral nonpitting edema, stable per patient, Updated Medication List Medication Instructions Recorded Confirmed Type aspirin 81 mg tablet,delayed 81 mg PO DAILY 09/20/23 10/24/23 History release atorvastatin 20 mg tablet 20 mg PO DAILY 09/20/23 10/24/23 History baclofen 10 mg tablet 10 mg PO BID PRN Muscle Spasm 09/20/23 10/24/23 History clonazepam 0.5 mg tablet 0.5 mg PO BID 09/20/23 10/24/23 History clopidogrel 75 mg tablet 75 mg PO DAILY 09/20/23 10/24/23 History duloxetine 60 mg capsule,delayed See Rx Instructions .Route .COMPLEX 09/20/23 10/24/23 History release furosemide 40 mg tablet 60 mg PO BID 09/20/23 10/24/23 History gabapentin 300 mg capsule 600 mg PO TID 09/20/23 10/24/23 History insulin aspart U-100 100 unit/mL 8 unit subcut UD 09/20/23 10/24/23 History (3 mL) subcutaneous pen (Novolog FlexPen U-100 Insulin aspart) insulin degludec 100 unit/mL (3 50 unit subcut HS 09/20/23 10/24/23 History mL) subcutaneous pen (Tresiba FlexTouch U-100 insulin) levothyroxine 200 mcg tablet See Rx Instructions .Route .COMPLEX 09/20/23 10/24/23 History levothyroxine 50 mcg tablet See Rx Instructions .Route .COMPLEX 09/20/23 10/24/23 History magnesium oxide 400 mg (241.3 mg 400 mg PO BID 09/20/23 10/24/23 History magnesium) tablet omeprazole 20 mg capsule,delayed 20 mg PO DAILY 09/20/23 10/24/23 History release oxycodone 5 mg tablet 5 mg PO Q6H PRN Pain 09/20/23 10/24/23 History potassium chloride 20 mEq 20 meq PO BID 09/20/23 10/24/23 History tablet,extended release(part/cryst) ropinirole 2 mg tablet 2 mg PO HS 09/20/23 10/24/23 History sennosides 8.6 mg-docusate sodium 1 tab PO BID 09/20/23 10/24/23 History 50 mg tablet (Senna-Time S) tirzepatide 5 mg/0.5 mL 5 mg subcut WK 09/20/23 10/24/23 History subcutaneous pen injector (Mounjaro) tramadol 50 mg tablet 50 mg PO TID PRN Pain 09/20/23 10/24/23 History trazodone 100 mg tablet 100 mg PO HS 09/20/23 10/24/23 History Vit D3 1000iu 200+50 Softge 1 tab PO QAM 10/24/23 10/24/23 History apixaban 2.5 mg tablet (Eliquis) 2.5 mg PO BID 10/24/23 10/24/23 History dicyclomine 20 mg tablet 20 mg PO QID PRN abdominal cramping 10/24/23 10/24/23 History duloxetine 30 mg capsule,delayed See Rx Instructions .Route .COMPLEX 10/24/23 10/24/23 History release triamcinolone acetonide 0.5 % 1 applic topical BID PRN chest rash 10/24/23 10/24/23 History topical cream vancomycin 125 mg capsule 125 mg PO Q6H 7 days #28 caps 10/28/23 Rx Hospital Stay Data Consultations 10/24/23 17:16 ED Decision to Admit Stat 10/25/23 08:26 Consult Nephrology Routine 10/27/23 16:57 Consult Urology Routine Diagnostic Imagining Performed 10/24/23 16:20 CT abd pelvis wo con Stat Pending Results Patient Have Any Pending Studies at Discharge: Yes (Complement levels ) Discharge Instructions Given to Patient (Per Discharging Provider) You were admitted for weakness and low blood pressure. Your urine was noted to have protein, white cells, and blood cells, but no new infection. You were seen by the kidney doctor to make sure kidney function stable and the abnormal urine findings were investigated. It was determined there was no urgent need for biopsy. Please resume Lasix 60mg two times a day on 10/29. Please continue potassium supplement. You will need to follow up in 1 week with lab work with your PCP. Plan for hospital follow up in [address] Lenz, nephrology. Please follow up with Urology as directed. Please continue your eliquis, plavix, and aspirin. Ultimately there were no changes to your home regimen. You were also noted to have diarrhea and concern for C. Diff infection. Please package pick up the following: Vancomycin 125mg every 6 hours, you will complete a total of 7 more days. Home Health Attestation I certify that this patient is under my care and that I, or a physicians research program assistant working with me, had a face to-face encounter that meets the home health [id number] encounter requirements with this patient. The encounter with the patient was in whole, or in part, for the following medical condition, which is the primary reason for home health care (list medical condition): UTI, recent bacteremia; resumption of care I certify that, based on my findings, the following services are medically necessary home health services: My clinical findings support the need for the above services because: Home Safety Assessment OT Assess ADL Status and Restore Function w ADLs PT Assessment for Endurance / Balance / Strength PT Eval for Safety and Mobility PT Eval for Safety, Gait Training, Assistive Devices PT Gait and Balance Training, Strengthening and Safety Vital Signs Further, I certify that my clinical findings support that this patient is homebound (i.e. absences from home require considerable and taxing effort and are for medical reasons or buddhism services or infrequently or of short duration when for other reasons) because: Transportation Assistance/Unable to Leave Home Unassisted Certification for Home Health Services: Based on the above findings, I certify that this patient is confined to the home and needs intermittent long term care, physical therapy and/or speech therapy or continues to need occupational therapy. The patient is under my care, and I have initiated the establishment of the plan of care. This patient will be followed by a physician who will periodically review the plan of care. Total Time Total Time Spent Total Time Spent (In Minutes): 45
== END 2023-10-28 13:59 | disposition home health service (06) | DRG 699 ==
LOC: ED 13:37 → EDINP 18:08 → SUATTDRO 18:08 → 2N 18:40

== ENCOUNTER 2023-11-20 08:53 | Inpatient (IN) ==
--- OUTSIDE RECORDS SUMMARY | 2023-11-20 09:00 | External Medical Summary | Summary of Care ---
Author Name Unknown Organization [facility] Address [address] [place] [address] Phone [phone] Care Team Providers Care Workforce Development Vice President Name Role Phone Galdino Andujar DO Primary Care Provider [phone] Reason for Visit * Reason Onset Date Comments [facility]: Maintenance 11/15/2023 Encounter Details Date Type Department Care Team (Late st Contact Info) Description 11/15/2023 Telephone [facility], [facility] [address] [place] [address] [id number] [place] [address] [facility]: Maintenance Allergies Active Allergy [...] as of this encounter (statuses as of 11/15/2023) Medications Medication Sig Dispensed Refills Start Date [...] of 7.0%-8.0% ([facility]) Inject 8 units with breakfast [...] use of insulin ([facility]) Use up to 4 times a day E11.9 in case of dexcom failure 100 Strip 11 05/31/2023 Active Dexcom G7 Sensor Use as directed. (From [facility]) 0 06/01/2023 Active Levothyroxine Sodium 200 [...] THE MORNING AND AT BEDTIME 60 Tablet 07/12/2023 Active Levothyroxine Sodium 50 MCG Oral [...] week. 2 mL 11 07/14/2023 4 Active Additional Information Patient taking differently:5 mg Subcutaneous QWEEK,, Reported on 11/07/2023 BD Pen Needle Short U/F 31G X [...] of 7.0%-8.0% ([facility]) INJECT 50 UNITS UNDER THE [...] at bedtime. 30 Tablet 5 08/20/2023 Active traMADol HCl 50 MG Oral Tablet [...] THE MORNING 30 Capsule 5 09/12/2023 Active Triamcinolone Acetonide 0.5 % External Cream (Aristocort)Indicat ions:Dermatitis Apply topically to affected area 2 times a day. Chest rash 60 g 0 10/04/2023 Active Apixaban 2.5 MG Oral Tablet (Eliquis) Take 1 Tablet by mouth in the morning and 1 Tablet before bedtime. 60 Tablet 11 10/04/2023 Active Furosemide 40 MG Oral Tablet (Lasix)Indications: [...] 1 Tablet before bedtime. 0 10/14/2023 Active oxyCODONE HCl 5 MG Oral Tablet (Oxy IR)Indications:Spin al stenosis of lumbar region without neurogenic claudication,Lumbar radiculopathy Take 1 Tablet by mouth every 6 hours as needed for Pain, Severe. 45 Tablet 0 10/20/2023 Active Dicyclomine HCl 20 MG Oral Tablet (Bentyl)Indications :Irritable bowel syndrome, unspecified type Take 1 Tablet by mouth 4 times a day as needed for Cramping. 180 Tablet 3 10/20/2023 Active clonazePAM 0.5 MG Oral Tablet (KlonoPIN)Indicatio ns:Restless legs syndrome,Anxiety state TAKE 1 TABLET BY MOUTH IN THE MORNING AND AT BEDTIME 60 Tablet 0 11/04/2023 Active documented as of this encounter (statuses as of 11/15/2023) Active Problems Problem Noted Date Diagnosed Date Iron deficiency 10/20/2023 Morbid (severe) obesity due to excess calories 0 10/04/2023 Body mass index (BMI) of 45.0 to 49.9 in adult 1 10/08/2022 Overview: Per Obesity protocol - Per Obesity Taxonomy ICD-10 update of inactive term DM peripheral angiopathy 07/13/2023 Last Assessment & Plan: Now followed by vascular, reports upcoming carotid surgery at [facility]. She states she has rx for atorvastatin and plavix to fish bait picker at pharmacy. 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 Atherosclerosis of [place]on[place] artery without angina pectoris 12/31/2021 [...] Assessment & Plan: Home PT to start [place] filter in place 08/19/2014 History of pulmonary embolus (PE) 07/16/2014 Last Assessment & Plan: Continue Eliquis Essential hypertension with goal blood pressure less [...] rx evidently given by vascular, has to fish bait picker rx documented as of this encounter (statuses as of 11/15/2023) Resolved Problems Problem Noted Date Diagnosed Date [...] 01/07/2022 Overview: ICD-10 update of inactive term Statin intolerance 07/16/2014 4 Kidney disease, chronic, sta ge III (GFR [...] as of this encounter (statuses as of 11/15/2023) Immunizations Name Administration Dates Next Due COVID-19 mRNA, LNP-s, No Pre serve, 2-Dose Series (Toppr) 01/08/2021,12/18/2020 COVID-19, LNP-s, No Preserve , Navarro-sucrose, Ages 12+ (Pfizer) 2022,10/01/2021 COVID-19, MRNA-LNP, 23-24, P F, 30 MCG/0.3 mL, 12 YRS AND ABOVE, IM (PFIZER-Comirnaty) 07/26/2023 Pneumococcal Conjugate Vacci ne, 20-valent ([id number]) 03/12/2022 Pneumococcal Polysaccharide PPV23 (Pneumovax) 08/22/2009,06/15/2006 Season [...] Date Smoking Tobacco: Former Cigarettes 1 15 1 10/27/1981 - 08/26/1997 Passive Smoke Exposure: Past Smokeless Tobacco: [...] Female 11/07/2019 2:21 PM EST Sexual Orientation Not on file Job Start Date Occupation Industry Not on file Not on file Not on file documented as of this encounter Miscellaneous Notes * Telephone Encounter - Lisandra Saucedo, BAG BUILDER - 11/15/2023 12:10 PM EST Images from the original note were not included. [facility] Remote Patient Monitoring Able to contact patient: Trigger type: Abnormal reading(s): AMC (Advanced Monitored Caregiving): Scale: Baseline weight: 0 lbs Trigger weight: 277.4 lbs; weight increased 11 lbs in 2 day(s) Trigger priority per AMC: moderate Patient takes diuretic medication: Yes, reviewed current diuretic use: Name of medication: Torsemide Dose: 60mg Frequency: BID Symptom review: None states the 11/13 weight not accurate it wasn't working correctly will adjust in [facility] Diet Reviewed: Yes. Patient has had any foods high in sodium: No Fluid Intake Reviewed: Yes. Patient is on a fluid restriction: Yes, restriction amount in milliliters or liters: 64 oz Adherent to restriction: Yes Self-Management Plan Reviewed: Red Flags: weight gain to 315lb SOB abdominal pain DTP (Diuretic Titration Protocol): Describe DTP: Name of medication(s): Metolazone Dose: 2.5mg Frequency: as directed Used in past 2 weeks: No Risk assignment recommendation: Moderate risk findings (check as applicable): [x] Moderate trigger priority on AMC [] Confirmed tympanic equivalent temperature 100.4-101.9 F onehour post administration of antipyretic [] Weight gain of 2.1-4.9 lbs over 1-2 days [] Confirmed new sustained resting HR greater than 105 WITHOUT symptoms [] Weight gain of greater than or equal to 5 lbs in 5 days WITHOUT heart failure symptoms [] Confirmed new sustained resting HRT less than 60 WITHOUT symptoms [] Moderate heart failure symptoms [] Confirmed SBP less than 90 WITHOUT symptoms [] Moderate COPD symptoms [] Confirmed SBP greater than 170 WITHOUT symptoms [] Confirmed new SpO2 90-93% [] Confirmed DBP greater than 90 WITHOUT symptoms High risk findings (check as applicable): [] High trigger priority on AMC [] Confirmed tympanic equivalent temperature greater than or equal to 102 F on hour post administration of antipyretic [] Weight gain of greater than or equal to 5 lbs over 1-2 days [] Confirmed tympanic equivalent temperature less than 96 F [] Weight gain of greater than or equal to 5 lbs in 5 days WITH heart failure symptoms [] Confirmednew sustained resting HR greater than 105 WITH symptoms [] Severe heart failure symptoms [] Confirmed new sustained resting HR less than 60 WITH symptoms [] Severe COPD symptoms [] Confirmed SBP less than 90 WITH symptoms [] Confirmed new SpO2 less than 90% [] Confirmed SBP greater than 170 WITH symptoms [] Confirmed DBP greater than 90 WITH symptoms Additional risk selection justification: Spoke to patient last BM yesterday denies increased SOB oredema will adjust AMC due to not accurate per patient on 11/13 will call with any urgent issues Overall risk and identified plan: Moderate risk: Route to RNCM (Registered Nurse Director Custom) and Advance Practitioner documented in this encounter Plan of Treatment Upcoming Encounters Date Type Department Care Team (Late st Contact Info) Description 12/01/2023 9:00 AM EST Office Visit Nephrology, [facility] [address] [place] [address] Erik Lenz MD [address] [place] [address] 12/06/2023 2:40 PM EDT Office Visit Family Practice [address] [facility] [address] [place] [phone] Galdino Andujar, [address] [facility], [place] [address] 12/06/2023 3:20 PM EDT Office Visit Family Practice [address] [facility] [address] [place] [phone] College, Pharmacist [address] [place] [address] 01/05/2024 2:00 PM EDT Nurse Only Ancillary [address] [facility] [address] [place] [address] [place], Nurse Annual Wellness Visit [address] [place] [address] 01/11/2024 1:00 PM EDT Office Visit Cardiology, [facility] [address] [facility] [place] [address] Marjorie Powell, PADar [address] [facility] [place] [address] 01/19/2024 9:00 AM EDT Office Visit Family Practice [address] [facility] [address] [place] [address] Galdino Andujar, [address] [place] [address], [place] [address] Scheduled Procedures Name Priority Associated Diagnoses Date/Ti me COLONOSCOPY FLEXIBLE PROXIMAL DIAGNOSTIC Recall Colon cancer screening Health Maintenance Due Date Last Done Comments Cologuard 2000 Fecal Occult Blood Test 2000 Sigmoidoscopy 2000 CKD PHOS USE SMARTSET 09910 02/12/2024 0505/2023, 01/07/2022, 03/12/2021, Additional history exists HbA1c 03/21/2024 09/20/2023, 06/28, 03/05/2023, Additional history exists Mammogram 04/21/2024 04/21/2023, 01/24, 10/01/2020, Additional history exists GFR 05/07/2024 11/07/2023, 09/26, 09/13/2023, Additional history exists Diabetic Eye Exam 05/09/2024 05/09/2023, , 05/24/2022, Additional history exists Albumin/Creatinine Ratio 08/05/2024 023, 11/01/2022, 01/07/2022, Additional history exists Diabetic Foot Exam 10/04/2024 10/04/2023, 0 11/01/2022, 01/07/2022, Additional history exists TSH 10/13/2024 10/13/2023, 02/0 02/2023, 01/07/2022, Additional history exists Depression Screening 10/20/2024 10/20/2023, 06/12/20 18 CKD HGB USE SMARTSET 02995 11/07/202411/07, 11/07/2023, 10/13/2023, Additional history exists Colonoscopy 02/17/2026 02/18/2016, 01/25, [...] on File Type Date Recorded Patient Senior It Assistant Expl anation POLST 03/19/2020 4:25 PM [...] the patient have Health Care Power of Ocean Freight Manager? No Healthcare Agents on File Name Relationship Healthcare Agent Relationship Communication Galdino Camp Other - (no specific identity) Health Care Power of Ocean Freight Manager Princess Other - (no specific identity) Health Care Power of Ocean Freight Manager Care Teams Workforce Development Vice President Relationship Specialty Start Date End Date Galdino Andujar DO [address] [place] [address] PCP - General Internal Medicine 01/07/22 documented as of this encounter
--- NOTE | 2023-11-20 09:12 | Emergency Department Note ---
Impression & Plan Fall ADMIT ED Provider Note HPI: History obtained from patient. The patient is a 68-year-old female with morbid obesity, type 2 diabetes, history of DVT on Eliquis currently, CKD, who presents emergency department after a fall. Patient states that earlier this morning she was walking to feed her cats when her knees "both buckled" and she fell on her bilateral knees. Patient states that she is unsure of how she landed after that and is unsure whether or not she hit her head. On arrival here to the ED the patient is anxious appearing and tearful, she states she has some pain in her right knee, patient is hypertensive on arrival at 159/126, she is otherwise hemodynamically stable and saturating well on baseline nasal cannula oxygen. ROS: - Per HPI Differential Diagnosis: Knee fracture, knee dislocation, intracranial hemorrhage to include subdural hematoma, skull fracture, acute on chronic ambulatory dysfunction, amongst other potential pathologies. *Outpatient medications and allergy history reviewed. PE: General: Alert, morbidly obese, anxious appearing HEENT: Normocephalic, trachea midline Eyes: Extraocular eye movement is intact, no scleral erythema Pulmonary: Clear to auscultation bilaterally, no wheezing Cardio: Regular rate and rhythm GI: Abdomen is soft to palpation : No suprapubic tenderness MSK: No evidence of trauma or malformation of the extremities, no edema, range of motion is intact in the bilateral knees Skin: No evidence of rash Neuro: Alert, no focal deficits Psychiatric: Anxious appearing, intermittently tearful, overall cooperative INDEPENDENT INTERPRETATIONS: investment specialist: (As interpreted by myself): - An order was placed for continuous cardiac monitoring - Patient was noted to be in sinus rhythm with a rate of 85 EKG: (As interpreted by myself): Rate: 86 Rhythm: Sinus rhythm Intervals: Within normal limits ST changes: No ST elevation Time: 0903 Interventions provided in ED: -IV fentanyl Medical Decision Making: IV was established and lab work obtained, patient was placed on cardiac cath tech. Lab work shows a mild leukocytosis at 12.25, hemoglobin is stable at 11.5, platelet count is normal, CMP does not show any critical findings, baseline chronic kidney disease, troponin is negative, EKG shows sinus rhythm without any acute ischemic changes per my interpretation. CT imaging of the head does not show any evidence of acute intracranial process. X-ray imaging of the bilateral knees does not show any evidence of fracture or dislocation. On my reassessment I discussed discharge options with the patient and she initially was agreeable for discharge. I was informed by the bedside RN that the patient then became tearful and when she attempted to ambulate at the bedside she stated she was unable to stand and felt unsteady to go home. Upon review of her previous visits here to the hospital she was recommended for inpatient rehabilitation earlier this month and declined. I discussed the patient's presentation with the [facility] hospitalist service, case was discussed with Homa Suarez PA-C, patient will be admitted to the hospitalist service for acute on chronic ambulatory dysfunction with mechanical fall with plan for PT/OT evaluation. I did recommend patient go to inpatient physical therapy as previously advised, she states that she would be agreeable to this. Patient was therefore placed for admission in stable condition. Consultants/Discussions held with other healthcare providers: -Hospitalist service, Dr. Montes Disposition discussion held by myself with: -Patient Diagnosis: 1. Acute on chronic ambulatory dysfunction 2. Mechanical fall, acute 3. Bilateral knee contusions, acute 4. Leukocytosis, acute, nonspecific Disposition: Admission Michael He DO Emergency Medicine Past Med/Surg History Medical History (Updated 11/20/23 @ 14:25 by Tiny Suarez PA-C) UTI due to Klebsiella species Hypotension Acute pyelonephritis Hypomagnesemia Mitral valve stenosis Echo 06/2023: Borderline mild mitral stenosis secondary to severe mitral annular calcification Chronic hypoxemic respiratory failure Cataract, bilateral Lumbago with sciatica Lower extremity pain, bilateral Neuropathy feet On home oxygen therapy 3L continuous CHF (congestive heart failure) Follows with Dr. Woodall Subclavian artery stenosis Cerebrovascular duplex study 06/2023: Retrograde flow in the right vertebral artery. 50-69% proximal right subclavian artery stenosis. Antegrade flow in the left vertebral artery. Normal flow in the left subclavian artery. Carotid stenosis, right Cerebrovascular duplex 07/11/23: 80-99% R ICA stenosis. No hemodynamically significant stenosis in the LICA. Diabetes mellitus, type II CKD (chronic kidney disease), stage III Follows with [facility] ELISSA on CPAP CPAP + 3L O2 (O2 is continuous) HTN (hypertension) HLD (hyperlipidemia) Morbid obesity HIT (heparin-induced thrombocytopenia) 2008, [facility] then life flight to [place] > "resolved" Depression with anxiety Hypothyroidism History of pulmonary embolism 2008 s/p zoraida filter GERD (gastroesophageal reflux disease) RLS (restless legs syndrome) History of DVT (deep vein thrombosis) 2008 (during ICU [facility] admission/PNA) Presence of IVC filter 2008 Fibromyalgia Surgical History Family history of reaction to anesthesia Brother/niece- PONV Brother- "wakes up violent" History of colostomy reversal History of tooth extraction History of arthroscopy left ankle History of incisional hernia repair Nausea and vomiting after administration of anesthetic agent History of colonoscopy History of cholecystectomy History of total right knee replacement History of tracheostomy 06/2009 (per [facility] records), secondary to acute respiratory failure in setting of PNA, reversed a few months later History of thyroidectomy, total 2010 History of colon resection secondary to R colon perforation, resected treated with colostomy and eventual reversal in 2008, Dr. Lerma Family History Father , age 74 Lung cancer Mother , age 45 Cirrhosis Social History Smoking Status: Never smoker Tobacco Type: Cigarettes Cigarettes Per Day: 1996; Second Hand Exposure: No; Do You Dip or Chew Tobacco: No; Hx Alcohol Use: No Hx Substance Use: No Preferred Language: Danish Communication Ability: Effective Cargo Services Coordinator Required: No Beliefs That Will Affect Care: None marital status: Single Current Living Situation: Alone Current Living Situation Comment: Lives by self in apartment How many Children do You have: 0 Feels Safe at Home: Yes Assistive Devices: Oxygen - Continuous, Walker and Wheelchair Allergies Allergies Allergy/AdvReac Type Severity Reaction Status Date / Time morphine Allergy Severe Swelling, Verified 11/20/23 10:52 "Violent reaction- almost " dapagliflozin [From Farxiga] Allergy Intermediate Yeast Verified 11/20/23 10:52 infections tetanus toxoid, adsorbed Allergy Intermediate Passed Verified 11/20/23 10:52 out, "got sick" as child bupropion [From Wellbutrin] AdvReac Intermediate Recurrent Verified 11/20/23 10:52 falls as per patient codeine AdvReac Intermediate Hallucinati Verified 11/20/23 10:52 ons empagliflozin AdvReac Intermediate Yeast Verified 11/20/23 10:52 [From Jardiance] infections heparin AdvReac Intermediate HIT, Verified 11/20/23 10:52 "Fluid in lungs" hydrocodone [From Vicodin] AdvReac Intermediate Drowsy Verified 11/20/23 10:52 Home Meds Home Medications Medication Instructions Recorded Confirmed aspirin 81 mg tablet,delayed 81 mg PO DAILY 09/20/23 11/20/23 release atorvastatin 20 mg tablet 20 mg PO DAILY 09/20/23 11/20/23 baclofen 10 mg tablet 10 mg PO BID PRN Muscle Spasm 09/20/23 11/20/23 clonazepam 0.5 mg tablet 0.5 mg PO BID 09/20/23 11/20/23 clopidogrel 75 mg tablet 75 mg PO DAILY 09/20/23 11/20/23 duloxetine 60 mg capsule,delayed See Rx Instructions .Route .COMPLEX 09/20/23 11/20/23 release furosemide 40 mg tablet 60 mg PO BID 09/20/23 11/20/23 gabapentin 300 mg capsule 600 mg PO TID 09/20/23 11/20/23 insulin aspart U-100 100 unit/mL 8 unit subcut UD 09/20/23 11/20/23 (3 mL) subcutaneous pen (Novolog FlexPen U-100 Insulin aspart) insulin degludec 100 unit/mL (3 50 unit subcut HS 09/20/23 11/20/23 mL) subcutaneous pen (Tresiba FlexTouch U-100 insulin) levothyroxine 200 mcg tablet See Rx Instructions .Route .COMPLEX 09/20/23 11/20/23 levothyroxine 50 mcg tablet See Rx Instructions .Route .COMPLEX 09/20/23 11/20/23 magnesium oxide 400 mg (241.3 mg 400 mg PO BID 09/20/23 11/20/23 magnesium) tablet omeprazole 20 mg capsule,delayed 20 mg PO DAILY 09/20/23 11/20/23 release oxycodone 5 mg tablet 5 mg PO Q6H PRN Pain 09/20/23 11/20/23 potassium chloride 20 mEq 20 meq PO BID 09/20/23 11/20/23 tablet,extended release(part/cryst) ropinirole 2 mg tablet 2 mg PO HS 09/20/23 11/20/23 sennosides 8.6 mg-docusate sodium 1 tab PO BID 09/20/23 11/20/23 50 mg tablet (Senna-Time S) tirzepatide 5 mg/0.5 mL 5 mg subcut WK 09/20/23 11/20/23 subcutaneous pen injector (Kevan) tramadol 50 mg tablet 50 mg PO TID PRN Pain 09/20/23 11/20/23 trazodone 100 mg tablet 100 mg PO HS 09/20/23 11/20/23 Vit D3 1000iu 200+50 Softge 1 tab PO QAM 10/24/23 11/20/23 apixaban 2.5 mg tablet (Eliquis) 2.5 mg PO BID 10/24/23 11/20/23 dicyclomine 20 mg tablet 20 mg PO QID PRN abdominal cramping 10/24/23 11/20/23 duloxetine 30 mg capsule,delayed See Rx Instructions .Route .COMPLEX 10/24/23 11/20/23 release triamcinolone acetonide 0.5 % 1 applic topical BID PRN chest rash 10/24/23 11/20/23 topical cream Results & Data (ED) Vital Signs Vital Signs - 24 hr 11/20/23 08:58 11/20/23 09:07 11/20/23 09:17 Temperature 36.9 C Temperature Source Oral Pulse Rate 84 86 82 Pulse Rate [Right Finger] Respiratory Rate 22 22 Respiratory Effort / Characteristics Non-Labored Spontaneous Respiratory Depth Normal Respiratory Pattern Regular Blood Pressure 159/126 H Blood Pressure [Right Radial Artery] Blood Pressure Mean 137 Blood Pressure Mean [Right Radial Artery] Pulse Oximetry 100 100 Oxygen Delivery Method Nasal Cannula Nasal Cannula Oxygen Flow Rate 4 4 Sepsis Recent Fever Within 48 Hours Yes Sepsis New/Unexplained Change in Mental Status N/A Sepsis Action Taken by Nursing No Action Required 11/20/23 12:08 11/20/23 14:10 Temperature Temperature Source Pulse Rate Pulse Rate [Right Finger] 78 80 Respiratory Rate 18 16 Respiratory Effort / Characteristics Respiratory Depth Respiratory Pattern Blood Pressure Blood Pressure [Right Radial Artery] 105/64 100/58 L Blood Pressure Mean Blood Pressure Mean [Right Radial Artery] 77 72 Pulse Oximetry 97 98 Oxygen Delivery Method Nasal Cannula Nasal Cannula Oxygen Flow Rate 4 4 Sepsis Recent Fever Within 48 Hours Sepsis New/Unexplained Change in Mental Status Sepsis Action Taken by Nursing Laboratory Data 11/20/23 09:00 11/20/23 10:19 Lab Results 11/20/23 11/20/23 11/20/23 Range/Units 09:00 10:19 14:24 WBC 12.25 H (4.8-10.8) K/ul RBC 4.28 (4.20-5.40) M/uL Hgb 11.5 L (12.0-16.0) g/dl Hct 38.7 (37.0-47.0) % MCV 90.4 (80.0-100.0) fL MCH 26.9 (25.0-34.0) pg MCHC 29.7 L (32.0-36.0) g/dL RDW Std Deviation 50.7 H (36.4-46.3) fL RDW Coeff of Adolfo 15.5 H (11.5-14.5) % Plt Count 300 (130-400) K/uL MPV 10.2 (9.4-12.4) fL Immature Gran % (Auto) 0.9 % Neut % (Auto) 66.5 % Lymph % (Auto) 22.4 % Hanson % (Auto) 5.6 % Eos % (Auto) 4.3 % Baso % (Auto) 0.3 % Neut # (Auto) 8.14 H (1.40-6.50) K/uL Lymph # (Auto) 2.75 (1.20-3.40) K/uL Hanson # (Auto) 0.68 H (0.11-0.59) K/uL Eos # (Auto) 0.53 H (0.00-0.50) K/uL Baso # (Auto) 0.04 (0.00-0.20) K/uL Immature Gran # (Auto) 0.11 (0.01-0.20) K/uL PT 11.2 (9.0-12.0) Seconds INR 1.0 (0.9-1.1) Sodium 141 (136-145) mmol/L Potassium TNP 3.5 Chloride 98 (98-107) mmol/L Carbon Dioxide 35 H (21-32) mmol/L Anion Gap 8 (3-11) BUN 28 H (6-23) mg/dl Creatinine 1.55 H (0.6-1.2) mg/dl Est Cr Clr Drug Dosing 43.5 ml/min Est GFR ( Amer) 39.5 ml/min Est GFR (Non-Af Amer) 34.1 ml/min BUN/Creatinine Ratio 18.1 (10-20) Glucose 121 H (70-99(Fasting)) mg/dl POC Glucose 110 H (70-99) mg/dl Calcium 9.6 (8.6-10.3) mg/dl Total Bilirubin 0.4 (0.2-1.0) mg/dl AST TNP 11 L ALT 6 L (7-52) U/L Alkaline Phosphatase 88 (34-104) U/L Troponin I High Sens 6.0 (0-14) pg/ml Total Protein 7.8 (6.0-8.3) gm/dl Albumin 3.8 (3.4-5.0) gm/dl Globulin 4.0 (2.5-4.0) gm/dl Albumin/Globulin Ratio 1.0 (0.9-2) Lipase 21 (11-82) U/L Administered Medications Discontinued Medications Fentanyl Citrate (Fentanyl Citrate Pf 100 Mcg/2 Ml Vial) 50 mcg IV NOW STA Stop: 11/20/23 10:56 Last Admin: 11/20/23 11:39 Dose: 50 mcg Documented By: TITUS Sodium Chloride (Nss) 500 mls @ 999 mls/hr IV .Q31M STA Stop: 11/20/23 09:39 Last Infusion: 11/20/23 10:20 Dose: Infused Documented By: Admin: 11/20/23 09:39 Dose: 999 mls/hr Documented By: TITUS Imaging Data Radiologist's Impression: Knee X-Ray 11/20/23 09:08 XR knee RT 1 or 2V routine, XR knee LT 1 or 2V routine CLINICAL HISTORY: fall. Bilateral knee pain. COMPARISON STUDY: Left knee 09/28/2023. Right knee 10/24/2020. FINDINGS: There is a right total knee arthroplasty. The hardware is intact. Small bilateral knee effusions. Mild anterior soft tissue swelling. Tricompartmental osteoarthritis within the left knee most pronounced at the medial compartment. No acute fracture or dislocation within the right or left knee. IMPRESSION: 1. No acute fractures within the right or left knee. 2. Small bilateral knee effusions. ACT 112: Negative or not required by law. Electronically signed by: Ernesto France M.D. 11/20/2023 9:51 AM Knee X-Ray 11/20/23 09:08 XR knee RT 1 or 2V routine, XR knee LT 1 or 2V routine CLINICAL HISTORY: fall. Bilateral knee pain. COMPARISON STUDY: Left knee 09/28/2023. Right knee 10/24/2020. FINDINGS: There is a right total knee arthroplasty. The hardware is intact. Small bilateral knee effusions. Mild anterior soft tissue swelling. Tricompartmental osteoarthritis within the left knee most pronounced at the medial compartment. No acute fracture or dislocation within the right or left knee. IMPRESSION: 1. No acute fractures within the right or left knee. 2. Small bilateral knee effusions. ACT 112: Negative or not required by law. Electronically signed by: Ernesto France M.D. 11/20/2023 9:[address] 11/20/23 09:[address] DOSE: 580.53 mGy.cm HISTORY: fall TECHNIQUE: Multiaxial CT images of the head were performed without the use of intravenous contrast. Automated exposure control was utilized for this study. A dose lowering technique was utilized adhering to the principles of ALARA. Comparison: Head CT 06/09/2023. Findings: The paranasal sinuses and mastoid air cells are clear. The calvarium and skull base are intact. There is no mass, hematoma, midline shift, acute infarct. White matter hypodensity is nonspecific but suggestive of microvascular ischemic change. The ventricles and sulci demonstrate mild age-related involutional changes. Impression: No acute intracranial abnormality. Atrophy and microvascular ischemic changes. ACT 112: Negative or not required by law. Electronically signed by: Ernesto France M.D. 11/20/2023 9:47 AM Discharge Plan Visit Data Chief Complaint: Fall ED Provider: Michael He Discharge Problem: Fall Patient Disposition: Home - Self-Care Condition: Good Discharge Instructions Vincenzo/Other Patient Handouts: Knee Pain, ED Fall Prevention Activity Restrictions/Additional Instructions: Please follow-up with your primary care doctor in 2 to 3 days for reassessment. Please return to the emergency room if you have any new or worsening symptoms. Forms Stand Alone Forms: [facility], Important Visit Information Prescriptions Prescriptions: No Action atorvastatin 20 mg tablet 20 mg PO DAILY clonazepam 0.5 mg tablet 0.5 mg PO BID sennosides-docusate sodium [Senna-Time S] 8.6-50 mg tablet 1 tab PO BID clopidogrel 75 mg tablet 75 mg PO DAILY aspirin 81 mg tablet,delayed release (DR/EC) 81 mg PO DAILY tramadol 50 mg tablet 50 mg PO TID PRN (Reason: Pain) potassium chloride 20 mEq tablet,ER particles/crystals 20 meq PO BID magnesium oxide 400 mg (241.3 mg magnesium) tablet 400 mg PO BID trazodone 100 mg tablet 100 mg PO HS baclofen 10 mg tablet 10 mg PO BID PRN (Reason: Muscle Spasm) levothyroxine 50 mcg tablet See Rx Instructions .ROUTE .COMPLEX Rx Instructions: Take 50mcg w/ 200mcg by mouth to equal 250mcg once every morning ropinirole 2 mg tablet 2 mg PO HS gabapentin 300 mg capsule 600 mg PO TID omeprazole 20 mg capsule,delayed release(DR/EC) 20 mg PO DAILY levothyroxine 200 mcg tablet See Rx Instructions .ROUTE .COMPLEX Rx Instructions: Take 200mcg w/ 50mcg by mouth to equal 250mcg once every morning oxycodone 5 mg tablet 5 mg PO Q6H PRN (Reason: Pain) duloxetine 60 mg capsule,delayed release(DR/EC) See Rx Instructions .ROUTE .COMPLEX Rx Instructions: Take 60mg w/ 30mg by mouth to equal 90mg once every morning insulin degludec [Tresiba FlexTouch U-100] 100 unit/mL (3 mL) insulin pen 50 unit SUBCUT HS Mounjaro 5 mg/0.5 mL pen injector 5 mg SUBCUT WK Rx Instructions: tuesday furosemide 40 mg tablet 60 mg PO BID insulin aspart U-100 [Novolog FlexPen U-100 Insulin] 100 unit/mL (3 mL) insulin pen 8 unit SUBCUT UD Rx Instructions: 8units with breakfast and lunch and 10units with dinner triamcinolone acetonide 0.5 % cream 1 applic TOPICAL BID PRN (Reason: chest rash) dicyclomine 20 mg tablet 20 mg PO QID PRN (Reason: abdominal cramping) duloxetine 30 mg capsule,delayed release(DR/EC) See Rx Instructions .ROUTE .COMPLEX Rx Instructions: Take 30mg w/ 60mg by mouth to equal 90mg once every morning Eliquis 2.5 mg tablet 2.5 mg PO BID Vit D3 1000iu 200+50 Softge 1 tab PO QAM Referrals Referrals: Galdino Andujar DO [Primary Care Provider] - Discharge Problem: Fall Qualifiers: Encounter type: initial encounter Qualified Code(s): W19.XXXA - Unspecified fall, initial encounter
[2023-11-20 09:24] LABS: Basophils # (auto) 0.04 K/uL (0.00-0.20); Basophils % (auto) 0.3 %; Eosinophils # (auto) 0.53 K/uL (0.00-0.50); Eosinophils % (auto) 4.3 %; Hematocrit (blood only) 38.7 % (37.0-47.0); Hemoglobin 11.5 g/dl (12.0-16.0); Immature Granulocytes # (auto) 0.11 K/uL (0.01-0.20); Immature Granulocytes % (auto) 0.9 %; Lymphocytes # (auto) 2.75 K/uL (1.20-3.40); Lymphocytes % (auto) 22.4 %; Mean Corpuscular Hemoglobin 26.9 pg (25.0-34.0); Mean Corpuscular Hgb Conc 29.7 g/dL (32.0-36.0); Mean Corpuscular Volume 90.4 fL (80.0-100.0); Mean Platelet Volume 10.2 fL (9.4-12.4); Monocytes # (auto) 0.68 K/uL (0.11-0.59); Monocytes % (auto) 5.6 %; Neutrophils # (auto) 8.14 K/uL (1.40-6.50); Neutrophils % (auto) 66.5 %; Platelet Count 300 K/uL (130-400); RDW Coefficient of Variation 15.5 % (11.5-14.5); RDW Standard Deviation 50.7 fL (36.4-46.3); Red Blood Count 4.28 M/uL (4.20-5.40); White Blood Count 12.25 K/ul (4.8-10.8)
[2023-11-20] MEDS: SODIUM CHLORIDE 0.9% 500 ML IV STA (09:39)
[2023-11-20 09:46] LABS: Alanine Aminotransferase 6 U/L (7-52); Albumin Level 3.8 gm/dl (3.4-5.0); Alkaline Phosphatase 88 U/L (34-104); Anion Gap 8 (3-11); BUN Creatinine Ratio 18.1 (10-20); Bilirubin,Total 0.4 mg/dl (0.2-1.0); Blood Urea Nitrogen 28 mg/dl (6-23); Calcium 9.6 mg/dl (8.6-10.3); Carbon Dioxide 35 mmol/L (21-32); Chloride 98 mmol/L (98-107); Creatinine Clr Calc Pharmacy 43.5 ml/min; Est GFR (African American) 39.5 ml/min; Est GFR (Non-African American) 34.1 ml/min; Glucose 121 mg/dl (70-99(Fasting)); Lipase 21 U/L (11-82); Sodium 141 mmol/L (136-145); Total Protein 7.8 gm/dl (6.0-8.3)
--- NOTE | 2023-11-20 09:48 | CT Scan Report ---
HEAD CT NONCONTRAST CT DOSE: 580.53 mGy.cm HISTORY: fall TECHNIQUE: Multiaxial CT images of the head were performed without the use of intravenous contrast. A utomated exposure control was utilized for this study. A dose lowering technique was utilized adheri ng to the principles of ALARA. Comparison: Head CT 06/09/2023. Findings: The paranasal sinuses and mastoid air cells are clear. The calvarium and skull base are int act. There is no mass, hematoma, midline shift, acute infarct. White matter hypodensity is nonspecifi c but suggestive of microvascular ischemic change. The ventricles and sulci demonstrate mild age-rela dorita involutional changes. Impression: No acute intracranial abnormality. Atrophy and microvascular ischemic changes. ACT 112: Negative or not required by law. Electronically signed by: Ernesto France M.D. 11/20/2023 9:47 AM
[2023-11-20 09:49] LABS: Prothrombin Time 11.2 Seconds (9.0-12.0)
--- NOTE | 2023-11-20 09:52 | XRay Report ---
XR knee RT 1 or 2V routine, XR knee LT 1 or 2V routine CLINICAL HISTORY: fall. Bilateral knee pain. COMPARISON STUDY: Left knee 09/28/2023. Right knee 10/24/2020. FINDINGS: There is a right total knee arthroplasty. The hardware is intact. Small bilateral knee effu sions. Mild anterior soft tissue swelling. Tricompartmental osteoarthritis within the left knee most pronounced at the medial compartment. No acute fracture or dislocation within the right or left knee. IMPRESSION: 1. No acute fractures within the right or left knee. 2. Small bilateral knee effusions. ACT 112: Negative or not required by law. Electronically signed by: Ernesto France M.D. 11/20/2023 9:51 AM
[2023-11-20 10:49] LABS: Potassium 3.5 mmol/L (3.5-5.1)
[2023-11-20] MEDS: fentaNYL citrate PF 100 MCG/2 ML VIAL IV STA (11:39)
[2023-11-20] MEDS ORDERED: GLUCOSE 10 TAB/TUBE PO PRN (13:10)
[2023-11-20] MEDS ORDERED: GLUCOSE 40% GEL 15 GM TUBE PO PRN (13:10)
[2023-11-20] MEDS ORDERED: GLUCAGON FOR INJ 1 MG VIAL SQ PRN (13:10)
[2023-11-20] MEDS ORDERED: CARBOHYDRATES FOR HYPOGLYCEMIA PO PRN (13:10)
[2023-11-20] MEDS ORDERED: DEXTROSE 50% 50 ML SYRINGE IV PRN (13:10)
--- NOTE | 2023-11-20 13:23 | History & Physical Report ---
Date of Service November 20, 2023 Assessment & Plan (1) Ambulatory dysfunction: Plan: This is a 68 y/o female with a history of chronic respiratory failure due to probable interstitial lung disease, on chronic O2 at 4 L, ELISSA on CPAP, chronic diastolic heart failure, PVD, HTN, hyperlipidemia, insulin-requiring DM, CKD with baseline creatinine ~1.6, prior DVT/PE, s/p IVC filter placement and on Eliquis, hx HIT, hypothyroidism, fibromyalgia, RLS and depression who presents to the ED today after a fall at home. Work-up in the ED was negative for acute injury, but pt reported severe pain in her knees when she attempted an ambulatory trial in the ED. She feels like she unsafe to return home on her own so she was referred for admission and possible rehab placement. Of note, it appears that she was originally supposed go to [facility] for rehab after her admission in late Sep (d/c on 10/28) but she declined this option as she had no one to take care of her cats. She is willing to consider possible rehab placement today. - Admit to med surg - PT/OT evaluations - Fall precautions - Pain control prn (2) Weakness: Plan: Suspect multifactorial including complex medical history, polypharmacy, recent hospitalization/deconditioning. See plan for #1 (3) Type 2 diabetes, uncontrolled, with neuropathy: Plan: Chronic, pt reports sugars have been stable for her since being discharged (4) Chronic diastolic heart failure: Plan: Chronic, stable Continue furosemide (5) Chronic respiratory failure: Plan: On 4 L O2 chronically (6) CKD (chronic kidney disease), stage III: Plan: Chronic, stable. Baseline creatinine around 1.6 (7) ELISSA on CPAP: Plan: Chronic - has had difficulty using CPAP recently due to epistaxis but willing to try using while here (8) HTN (hypertension): Plan: Chronic, stable (9) Hypothyroidism: Plan: Chronic, stable Continue levothyroxine (10) Depression with anxiety: Plan: Anxious and tearful today about her fall and inability to walk Continue outpatient meds (11) History of pulmonary embolism: Plan: Has IVC filter in place Continue Eliquis Plan Pt seen and reviewed with collaborating physician, Dr. Montes. Plan of care discussed and as outlined above. Code Status: Full code DVT Prophylaxis: continue Eliquis, has IVC filter Jaylen Suarez PA-C History of Present Illness Chief Complaint: "my knees gave out and I fell" Primary Care Provider: Galdino Andujar DO This is a 68 y/o female with a history of chronic respiratory failure due to probable interstitial lung disease, on chronic O2 at 4 L, ELISSA on CPAP, chronic diastolic heart failure, PVD, HTN, hyperlipidemia, insulin-requiring DM, CKD with baseline creatinine ~1.6, prior DVT/PE, s/p IVC filter placement and on Eliquis, hx HIT, hypothyroidism, fibromyalgia, RLS and depression who presents to the ED today after a fall at home. Pt reports that she was going to feed her cats when her legs gave out on her and she fell, landing directly on both knees. She is being followed with home PT, who she reports last saw her two days ago (on Tuesday), and she had been doing well and improving. However, over the last two days, she has noted increasing LE weakness of unclear etiology. She reports significant pain in her bilateral knees with weightbearing and does not feel that she is safe to return home so we were consulted to admit pt for PT/OT evaluations and possible rehab placement. This morning when she fell, she denies any syncopal event, chest pain, palpitations, shortness of breath, fevers, chills. Pt was recently admitted to this facility 10/24/23-10/28/23 due to weakness that was thought to be multifactorial and ongoing diarrhea that was found to be secondary to C. diff colitis. Pt was originally supposed to go [facility] at discharge for rehab, which was strongly recommended, but she noted that she has no one to care for her two cats so she opted go to home with home health services instead. Pt reports that she had been doing well since discharge until the last two days when developed LE weakness. Her sugars have been stable with only one "low" blood glucose of around 90. The diarrhea has resolved with treatment of the C. diff though she notes that her BMs remain somewhat sporadic. Denies recent illness. Has had trouble tolerating the CPAP recently due to intermittent epistaxis. Current O2 demand is 4L, which she was on at discharge. She was recently started on iron supplement by her PCP office. Allergies Allergy/AdvReac Type Severity Reaction Status Date / Time morphine Allergy Severe Swelling, Verified 11/20/23 10:52 "Violent reaction- almost " dapagliflozin [From Farxiga] Allergy Intermediate Yeast Verified 11/20/23 10:52 infections tetanus toxoid, adsorbed Allergy Intermediate Passed Verified 11/20/23 10:52 out, "got sick" as child bupropion [From Wellbutrin] AdvReac Intermediate Recurrent Verified 11/20/23 1 0:52 falls as per patient codeine AdvReac Intermediate Hallucinati Verified 11/20/23 10:52 ons empagliflozin AdvReac Intermediate Yeast Verified 11/20/23 10:52 [From Jardiance] infections heparin AdvReac Intermediate HIT, Verified 11/20/23 10:52 "Fluid in lungs" hydrocodone [From Vicodin] AdvReac Intermediate Drowsy Verified 11/20/23 10:52 Home Medications Medication Instructions Recorded Confirmed Type aspirin 81 mg tablet,delayed 81 mg PO DAILY 09/20/23 11/20/23 History release atorvastatin 20 mg tablet 20 mg PO DAILY 09/20/23 11/20/23 History baclofen 10 mg tablet 10 mg PO BID PRN Muscle Spasm 09/20/23 11/20/23 History clonazepam 0.5 mg tablet 0.5 mg PO BID 09/20/23 11/20/23 History clopidogrel 75 mg tablet 75 mg PO DAILY 09/20/23 11/20/23 History duloxetine 60 mg capsule,delayed See Rx Instructions .Route .COMPLEX 09/20/23 11/20/23 History release furosemide 40 mg tablet 60 mg PO BID 09/20/23 11/20/23 History gabapentin 300 mg capsule 600 mg PO TID 09/20/23 11/20/23 History insulin aspart U-100 100 unit/mL 8 unit subcut UD 09/20/23 11/20/23 History (3 mL) subcutaneous pen (Novolog FlexPen U-100 Insulin aspart) insulin degludec 100 unit/mL (3 50 unit subcut HS 09/20/23 11/20/23 History mL) subcutaneous pen (Tresiba FlexTouch U-100 insulin) levothyroxine 200 mcg tablet See Rx Instructions .Route .COMPLEX 09/20/23 11/20/23 History levothyroxine 50 mcg tablet See Rx Instructions .Route .COMPLEX 09/20/23 11/20/23 History magnesium oxide 400 mg (241.3 mg 400 mg PO BID 09/20/23 11/20/23 History magnesium) tablet omeprazole 20 mg capsule,delayed 20 mg PO DAILY 09/20/23 11/20/23 History release oxycodone 5 mg tablet 5 mg PO Q6H PRN Pain 09/20/23 11/20/23 History potassium chloride 20 mEq 20 meq PO BID 09/20/23 11/20/23 History tablet,extended release(part/cryst) ropinirole 2 mg tablet 2 mg PO HS 09/20/23 11/20/23 History sennosides 8.6 mg-docusate sodium 1 tab PO BID 09/20/23 11/20/23 History 50 mg tablet (Senna-Time S) tirzepatide 5 mg/0.5 mL 5 mg subcut WK 09/20/23 11/20/23 History subcutaneous pen injector (Mounjaro) tramadol 50 mg tablet 50 mg PO TID PRN Pain 09/20/23 11/20/23 History trazodone 100 mg tablet 100 mg PO HS 09/20/23 11/20/23 History Vit D3 1000iu 200+50 Softge 1 tab PO QAM 10/24/23 11/20/23 History apixaban 2.5 mg tablet (Eliquis) 2.5 mg PO BID 10/24/23 11/20/23 History dicyclomine 20 mg tablet 20 mg PO QID PRN abdominal cramping 10/24/23 11/20/23 History duloxetine 30 mg capsule,delayed See Rx Instructions .Route .COMPLEX 10/24/23 11/20/23 History release triamcinolone acetonide 0.5 % 1 applic topical BID PRN chest rash 10/24/23 11/20/23 History topical cream Past Med/Surg History Medical History (Updated 11/20/23 @ 14:25 by iTny Suarez PA-C) UTI due to Klebsiella species Hypotension Acute pyelonephritis Hypomagnesemia Mitral valve stenosis Echo 06/2023: Borderline mild mitral stenosis secondary to severe mitral annular calcification Chronic hypoxemic respiratory failure Cataract, bilateral Lumbago with sciatica Lower extremity pain, bilateral Neuropathy feet On home oxygen therapy 3L continuous CHF (congestive heart failure) Follows with Dr. Woodall Subclavian artery stenosis Cerebrovascular duplex study 06/2023: Retrograde flow in the right vertebral artery. 50-69% proximal right subclavian artery stenosis. Antegrade flow in the left vertebral artery. Normal flow in the left subclavian artery. Carotid stenosis, right Cerebrovascular duplex 07/11/23: 80-99% R ICA stenosis. No hemodynamically significant stenosis in the LICA. Diabetes mellitus, type II CKD (chronic kidney disease), stage III Follows with [facility] ELISSA on CPAP CPAP + 3L O2 (O2 is continuous) HTN (hypertension) HLD (hyperlipidemia) Morbid obesity HIT (heparin-induced thrombocytopenia) 2008, [facility] then life flight to [place] > "resolved" Depression with anxiety Hypothyroidism History of pulmonary embolism 2008 s/p zoraida filter GERD (gastroesophageal reflux disease) RLS (restless legs syndrome) History of DVT (deep vein thrombosis) 2008 (during ICU [place] admission/PNA) Presence of IVC filter 2008 Fibromyalgia Surgical History Family history of reaction to anesthesia Brother/niece- PONV Brother- "wakes up violent" History of colostomy reversal History of tooth extraction History of arthroscopy left ankle History of incisional hernia repair Nausea and vomiting after administration of anesthetic agent History of colonoscopy History of cholecystectomy History of total right knee replacement History of tracheostomy 06/2009 (per [facility] records), secondary to acute respiratory failure in setting of PNA, reversed a few months later History of thyroidectomy, total 2010 History of colon resection secondary to R colon perforation, resected treated with colostomy and eventual reversal in 2008, Dr. Lerma Family History Father , age 74 Lung cancer Mother , age 45 Cirrhosis Social History Smoking Status: Former smoker Tobacco Type: Cigarettes Cigarettes Per Day: 1996; Second Hand Exposure: No; Do You Dip or Chew Tobacco: No; Hx Alcohol Use: No Hx Substance Use: No Preferred Language: Polish Communication Ability: Effective Bookstore Clerk Required: No Beliefs That Will Affect Care: None marital status: Single Current Living Situation: Alone Current Living Situation Comment: Lives by self in apartment How many Children do You have: 0 Feels Safe at Home: Yes Assistive Devices: Oxygen - Continuous, Walker and Wheelchair Review of Systems Review of Systems: All systems reviewed & are unremarkable except as noted in HPI & below Constitutional: + weakness; no fever and no chills Ear, Nose, Mouth, Throat: no nasal congestion, no nasal discharge and no sore throat Respiratory: no cough and no dyspnea Cardiovascular: no chest pain, no palpitations and no syncope Gastrointestinal: no vomiting and no diarrhea/loose stools Genitourinary: no dysuria and no hematuria Musculoskeletal: + joint pain (bilateral knees) Integumentary: no yellowing of the skin Neurologic: + unsteadiness, + falls and + generalize d weakness Psychiatric: + depression and + anxiety Physical Exam Physical Exam: General: awake, alert, anxious and tearful HEENT: no scleral icterus, moist oral mucosa Neck: trachea midline Heart: RRR Lungs: CTA bilaterally Abdomen: soft, obese, NT, +BS Extremities: mild bilateral knee tenderness but no significant swelling or ecchymosis Skin: right knee with well-healed scar, no abrasions noted Neurologic: moving all extremities Results & Data Results & Data Vital Signs (Past 12 Hours) Vital Signs Temp Pulse Pulse Resp BP BP Pulse Ox 11/20/23 12:08 78 18 105/64 97 11/20/23 09:17 82 22 100 11/20/23 09:07 86 11/20/23 08:58 36.9 C 84 22 159/126 H 100 O2 Del Method O2 Flow Rate 11/20/23 12:08 Nasal Cannula 4 11/20/23 09:17 Nasal Cannula 4 11/20/23 09:07 11/20/23 08:58 Nasal Cannula 4 Laboratory Results Laboratory Results - last 24 hr 11/20/23 11/20/23 09:00 10:19 WBC 12.25 H RBC 4.28 Hgb 11.5 L Hct 38.7 MCV 90.4 MCH 26.9 MCHC 29.7 L RDW Std Deviation 50.7 H RDW Coeff of Adolfo 15.5 H Plt Count 300 MPV 10.2 Immature Gran % (Auto) 0.9 Neut % (Auto) 66.5 Lymph % (Auto) 22.4 [place] % (Auto) 5.6 Eos % (Auto) 4.3 Baso % (Auto) 0.3 Neut # (Auto) 8.14 H Lymph # (Auto) 2.75 [place] # (Auto) 0.68 H Eos # (Auto) 0.53 H Baso # (Auto) 0.04 Immature Gran # (Auto) 0.11 PT 11.2 INR 1.0 Sodium 141 Potassium TNP 3.5 Chloride 98 Carbon Dioxide 35 H Anion Gap 8 BUN 28 H Creatinine 1.55 H Est Cr Clr Drug Dosing 43.5 Est GFR ( Amer) 39.5 Est GFR (Non-Af Amer) 34.1 BUN/Creatinine Ratio 18.1 Glucose 121 H Calcium 9.6 Total Bilirubin 0.4 AST TNP 11 L ALT 6 L Alkaline Phosphatase 88 Troponin I High Sens 6.0 Total Protein 7.8 Albumin 3.8 Globulin 4.0 Albumin/Globulin Ratio 1.0 Lipase 21 Diagnostic Findings Knee X-Ray 11/20/23 09:08 XR knee RT 1 or 2V routine, XR knee LT 1 or 2V routine CLINICAL HISTORY: fall. Bilateral knee pain. COMPARISON STUDY: Left knee 09/28/2023. Right knee 10/24/2020. FINDINGS: There is a right total knee arthroplasty. The hardware is intact. Small bilateral knee effusions. Mild anterior soft tissue swelling. Tricompartmental osteoarthritis within the left knee most pronounced at the medial compartment. No acute fracture or dislocation within the right or left knee. IMPRESSION: 1. No acute fractures within the right or left knee. 2. Small bilateral knee effusions. ACT 112: Negative or not required by law. Electronically signed by: Ernesto France M.D. 11/20/2023 9:51 AM Knee X-Ray 11/20/23 09:08 XR knee RT 1 or 2V routine, XR knee LT 1 or 2V routine CLINICAL HISTORY: fall. Bilateral knee pain. COMPARISON STUDY: Left knee 09/28/2023. Right knee 10/24/2020. FINDINGS: There is a right total knee arthroplasty. The hardware is intact. Small bilateral knee effusions. Mild anterior soft tissue swelling. Tricompartmental osteoarthritis within the left knee most pronounced at the medial compartment. No acute fracture or dislocation within the right or left knee. IMPRESSION: 1. No acute fractures within the right or left knee. 2. Small bilateral knee effusions. ACT 112: Negative or not required by law. Electronically signed by: Ernesto France M.D. 11/20/2023 9:[address] 11/20/23 09:[address] DOSE: 580.53 mGy.cm HISTORY: fall TECHNIQUE: Multiaxial CT images of the head were performed without the use of intravenous contrast. Automated exposure control was utilized for this study. A dose lowering technique was utilized adhering to the principles of ALARA. Comparison: Head CT 06/09/2023. Findings: The paranasal sinuses and mastoid air cells are clear. The calvarium and skull base are intact. There is no mass, hematoma, midline shift, acute infarct. White matter hypodensity is nonspecific but suggestive of microvascular ischemic change. The ventricles and sulci demonstrate mild age-related involutional changes. Impression: No acute intracranial abnormality. Atrophy and microvascular ischemic changes. ACT 112: Negative or not required by law. Electronically signed by: Ernesto France M.D. 11/20/2023 9:47 AM Medications Administered Discontinued Medications Fentanyl Citrate (Fentanyl Citrate Pf 100 Mcg/2 Ml Vial) 50 mcg IV NOW STA Stop: 11/20/23 10:56 Last Admin: 11/20/23 11:39 Dose: 50 mcg Documented By: TITUS Sodium Chloride (Nss) 500 mls @ 999 mls/hr IV .Q31M STA Stop: 11/20/23 09:39 Last Infusion: 11/20/23 10:20 Dose: Infused Documented By: Admin: 11/20/23 09:39 Dose: 999 mls/hr Documented By: TITUS Code Status & VTE Plan VTE Prophylaxis Plan VTE Prophylaxis will be ordered: Yes Supervising Physician Co-Signing Physician Notes Care coordinated with Erick Franks PA-C. Agree with above note. Patient seen and examined. Please refer to her notes for full details. Vital signs reviewed. Physical exam: General exam: Alert and oriented. Not in acute distress. CVS: S1 and S2 heard, regular rate and rhythm, no murmurs. RS: Clear to auscultation, no wheezing or crackles. ABD: Soft, bowel sounds present, nontender, no distention. COMMANDING [employer]FF[employer]: Nonfocal. EXT: lower extremity edema present. Painful lower extremity movements, no erythema. Labs: Reviewed. Assessment and plan: 68F with multiple medical probelms as mentioned in hand p comes becuse of fall today morning. Cruzito says her knees are weak and she fell on the knees and rolled down. Didnot hit her head and no loss of consiousness. Complaining of suzie in the knees. Has some abdominal discomfort. No chest pain or sob. Afebrile. Hemodynamics ok. Fall Knee pain weakness xray knees no acute findings recent admission for weakness and seems refused to go to rehab will do pt/ot pain control. DM on lantus and ISS will consult glycemic pharmacy close monitor Other diagnosis and plan of care as per Erick Franks PA. Abhilash parker MD. (5) Chronic respiratory failure Respiratory failure complication: hypoxia Qualified Code(s): J96.11 - Chronic respiratory failure with hypoxia (6) CKD (chronic kidney disease), stage III Chronic kidney disease stage 3 subtype: unspecified whether 3a or 3b Qualified Code(s): N18.30 - Chronic kidney disease, stage 3 unspecified (8) HTN (hypertension) Hypertension type: primary hypertension Qualified Code(s): I10 - Essential (primary) hypertension (9) Hypothyroidism Hypothyroidism type: unspecified Qualified Code(s): E03.9 - Hypothyroidism, unspecified
--- NOTE | 2023-11-20 13:51 | Electrocardiogram Report ---
Test Reason : Blood Pressure : / mmHG Vent. Rate : 086 BPM Atrial Rate : 000 BPM P-R Int : 000 ms QRS Dur : 070 ms QT Int : 374 ms P-R-T Axes : 000 025 050 degrees QTc Int : 447 ms Poor data quality, interpretation may be adversely affected Sinus rhythm Low voltage QRS Abnormal ECG When compared with ECG of 24-OCT-2023 14:14, No significant change Confirmed by Bright David ([id number]) on 11/20/2023 1:51:16 PM Referred By: REFERRED SELF Confirmed By:Bright David
--- OUTSIDE RECORDS SUMMARY | 2023-11-20 16:23 | External Medical Summary | Summary of Care ---
Author Name Unknown Organization [facility] Address [address] [place] [address] Phone [phone] Care Team Providers Care Watch Inspector Final Movement Name Role Phone Lexii Andujar DO Primary Care Provider [phone] Reason for Visit * Reason Onset Date Comments Medication Refill 11/18/2023 Encounter Details Date Type Department Care Team (Late st Contact Info) Description 11/18/2023 Refill Family Practice [address] [place] [address] [place] [phone] Lexii Andujar DO [address] [place], [place] [id number] Lumbar radiculopathy; Primary osteoarthritis of left knee [...] as of this encounter (statuses as of 11/20/2023) Medications Medication Sig Dispensed Refills Start Date [...] Dexcom G7 Sensor Use as directed. (From [facility]) 0 3 Active Levothyroxine Sodium 200 [...] 2 mL 11 3 07/13/20 24 Active Additional Information Patient taking differently:5 mg [...] at bedtime. 30 Tablet 5 3 Active Potassium Chloride [...] THE MORNING 30 Capsule 5 3 Active Triamcinolone Acetonide 0.5 % External Cream (Aristocort)Indicat ions:Dermatitis Apply topically to affected area 2 times a day. Chest rash 60 g 0 4 Active Apixaban 2.5 MG Oral Tablet (Eliquis) Take 1 Tablet by mouth in the morning and 1 Tablet before bedtime. 60 Tablet 11 4 Active Furosemide 40 MG Oral Tablet [...] for Cramping. 180 Tablet 3 4 Active clonazePAM 0.5 MG Oral Tablet (KlonoPIN)Indicatio ns:Restless legs syndrome,Anxiety state TAKE 1 TABLET BY MOUTH IN THE MORNING AND AT BEDTIME 60 Tablet 0 4 Active traMADol HCl 50 MG Oral Tablet (Ultram)Indications :Lumbar radiculopathy,Prima ry osteoarthritis of left knee Take 1 Tablet by mouth every 8 hours as needed for Pain, Severe. 90 Tablet 0 4 Active traMADol HCl 50 MG Oral Tablet (Ultram)Indications :Lumbar radiculopathy,Prima ry osteoarthritis of left knee Take 1 Tablet by mouth every 8 hours as needed for Pain, Severe. 90 Tablet 0 3 11/18/19 24 Discontinu ed(Refill) documented as of this encounter (statuses as of 11/20/2023) Active Problems Problem Noted Date Diagnosed Date Iron deficiency 10/20/2023 Morbid (severe) obesity due to excess calories 0 10/04/2023 Body mass index (BMI) of 45.0 to 49.9 in adult 1 10/08/2022 Overview: Per Obesity protocol - Per Obesity Taxonomy ICD-10 update of inactive term DM peripheral angiopathy 07/13/2023 Last Assessment & Plan: Now followed by vascular, reports upcoming carotid surgery at [facility]. 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 Atherosclerosis of [place] ronary artery without angina pectoris [...] Assessment & Plan: Home PT to start [place] filter in place 08/19/2014 History of [...] rx evidently given by vascular, has to mixing picker tender rx documented as of this encounter (statuses as of 11/20/2023) Resolved Problems Problem Noted Date Diagnosed Date [...] as of this encounter (statuses as of 11/20/2023) Immunizations Name Administration Dates Next Due COVID-19 mRNA, LNP-s, No Pre serve, 2-Dose Series (FlowMedica) 01/08/2021,12/18/2020 COVID-19, LNP-s, No Preserve , Navarro-sucrose, Ages 12+ (Pfizer) 2022,10/01/2021 COVID-19, MRNA-LNP, 23-24, P F, 30 MCG/0.3 mL, 12 YRS AND ABOVE, IM (PFIZER-Comirnaty) 07/26/2023 Pneumococcal Conjugate Vacci ne, 20-valent ([id number]) 03/12/2022 Pneumococcal Polysaccharide PPV23 (Pneumovax) 08/22/2009,06/15/2006 Season [...] Telephone Encounter - Lexii Andujar DO - 11/20/2023 9:59 AM ESTSigned Prescriptions: Disp Refills traMADol HCl 50 MG Oral Tablet (Ultram) 90 Tab*0 Sig: Take 1 Tablet by mouth every 8 hours as needed for Pain, Severe.Authorizing Provider: LEXII ANDUJAR--------- * Telephone Encounter - Lexii Andujar DO - 11/20/2023 9:57 AM EST I have reviewed the patients controlled substance dispensing history in the Prescription Drug Monitoring Program in compliance with the [facility] regulations before prescribing a controlled [...] results can be found in Results Review. Due 10/05/2023 * Telephone Encounter - Zack Lindsey [facility] - 11/19/2023 7:04 AM ESTPending Prescriptions: Disp Refills traMADol HCl 50 MG Oral Tablet (Ultram) 90 Tab*0 Sig: Take 1 Tablet by mouth every 8 hours as needed for Pain, Severe. * Telephone Encounter - Zack Lindsey, [facility] - 11/19/2023 7:03 AM EST I have reviewed the patients controlled substance dispensing history in the Prescription Drug Monitoring Program in compliance with the [facility] regulations before prescribing a controlled substance. PDMP checked on 11/19/2023. Pending Prescriptions: Disp Refills traMADol HCl 50 MG Oral Tablet (Ultram) 90 Tab*0 Sig: Take 1 Tablet by mouth every 8 hours as needed for Pain, Severe. Last Visit: 11/07/2023 (in office), 08/04/2023 (telemedicine) Next Visit: 12/06/2023 Date medication was last filled: 09/06/23 Date medication is due for refill: 10/05/23 Pharmacy: [facility] [address] Is this request for a controlled [...] approve if appropriate. Thank You, Zack Reeder [facility] Clinical Pharmacist [facility] ([facility]) (formerly Telepharmacy) 11/19/2023, 7:03 AM * Telephone Encounter - SandraEvelyne, ventilation worker - 11/18/2023 2:52 PM EST Did you pend patient's preferred pharmacy and medication before forwarding?yes [facility] [place] [id number] [facility] Pending Prescriptions: Disp Refills traMADol HCl 50 MG Oral Tablet (Ultram) 90 Tab*0 Sig: Take 1 Tablet by mouth every 8 hours as needed for Pain, Severe. Last Visit: 11/07/2023 (in office), 08/04/2023 (telemedicine) Next Visit: 12/06/2023 If no future appointments scheduled, and last appointment is greater than a year ago, please schedule patient for a follow-up appointment Last date the medication was ordered: 09/06/2023 Is this request for a controlled substance?Yes, What was the last refill date 09/06/2023 w/ quantity 90 and dosage 50mg and Urine Drug Screen was completed Urine Drug [...] Results Component Value Date/Time CREAT 1.6 (H) 11/07/2023 04:43 PM CREAT 1.69 09/07/2023 12:00 AM CREAT 2.0 (H) 05/06/2020 08:46 AM POTASSIUM 4.3 11/07/2023 04:43 PM POTASSIUM 3.9 07/25/2023 12:00 AM POTASSIUM 4.0 05/06/2020 08:46 AM TSH 0.27 10/13/2023 11:13 AM TSH 5.35 (H) 05/06/2020 08:46 AM LDLCALC 60 11/07/2023 04:43 PM LDLCALC UNINTERPRETABLE RESULT 03/14/2019 01:54 PM LDLDIRECT 126 03/14/2019 01:54 PM LDLDIRECT 109 07/14/2017 12:35 PM ALT 14 11/07/2023 04:43 PM ALT 27 05/06/2020 08:46 AM HGBA1C 7.5 (H) 09/20/2023 12:00 AM HGBA1C 7.3 (H) 01/23/2020 11:11 AM documented in this encounter Plan of Treatment Upcoming Encounters Date Type Department Care Team (Late st Contact Info) Description 12/01/2023 9:00 AM EST Office Visit [facility] [address] [place], [place] [address] Erik Lenz MD [address] [place] [address] 12/06/2023 2:40 PM EDT Office Visit Family Practice [address], [place] [address] [place] [address] Lexii Andujar, [address] [facility], [place] [address] 12/06/2023 3:20 PM EDT Office Visit Family Practice [facility] [address] [place] [phone] College, Pharmacist [address] [place] [address] 01/05/2024 2:00 PM EDT Nurse Only Ancillary [facility] [address] [place] [address] College, Nurse Annual Wellness Visit [address] [place] [address] 01/11/2024 3:30 PM EDT Office Visit Cardiology, [facility] [address] [facility] [place] [address] Marjorie Powell, PA-C [facility] [place] [address] 01/19/2024 9:00 AM EDT Office Visit Family Practice [facility] [address] [place] [address] Lexii Andujar, [address] [place] [address] Scheduled Procedures Name Priority Associated Diagnoses Date/Ti me COLONOSCOPY FLEXIBLE PROXIMAL DIAGNOSTIC Recall Colon cancer screening Health Maintenance Due Date Last Done Comments Cologuard 2000 Fecal Occult Blood Test 2000 Sigmoidoscopy 2000 CKD PHOS USE SMARTSET 34664 02/12/202401/24, 01/07/2022, 03/12/2021, Additional history exists HbA1c [...] 10/20/2023, 06/12/20 18 CKD HGB USE SMARTSET [id number] 11/07/202411/07, 11/07/2023, 10/13/2023, Additional history exists Colonoscopy [...] Documents on File Type Date Recorded Patient Veneer Gluer Expl anation POLST 03/19/2020 4:25 PM POLST [...] patient have Health Care Power of Director Money? No Healthcare Agents on File Name Relationship Healthcare Agent Relationship Communication Lexii Camp Other - (no specific identity) Health Care Power of Director Money Princess Other - (no specific identity) Health Care Power of Director Money Care Teams Watch Inspector Final Movement Relationship Specialty Start Date End Date Lexii Andujar DO [address] [place] [address] PCP - General Internal Medicine 01/07/22 documented as of this encounter
[2023-11-20] MEDS: INSULIN ASPART PER UNIT CHARGE SC SCH (17:15)
[2023-11-20] MEDS: GABAPENTIN 600 MG TAB PO STA (18:04)
[2023-11-20] MEDS: LEVOTHYROXINE SODIUM 50 MCG TABLET PO SCH (18:04)
[2023-11-20] MEDS: DULoxetine HCL 60 MG CAP PO SCH (18:04)
[2023-11-20] MEDS: DULoxetine HCL 30 MG CAP PO SCH (18:04)
[2023-11-20] MEDS: LEVOTHYROXINE SODIUM 200 MCG TABLET PO SCH (18:04)
[2023-11-20] MEDS: FUROSEMIDE 20 MG TAB PO SCH (18:04)
[2023-11-20] MEDS: traMADol HCL 50 MG TABLET PO PRN (18:57)
[2023-11-20] MEDS ORDERED: PHARMACY GLYCEMIC MGMT CONSULT PRN (20:53)
[2023-11-20] MEDS: APIXABAN 2.5 MG TAB PO SCH (21:07)
[2023-11-20] MEDS: DOCUSATE SODIUM/SENNA 50/8.6MG TAB PO SCH (21:07)
[2023-11-20] MEDS: MAGNESIUM OXIDE 400 MG TAB PO SCH (21:08)
[2023-11-20] MEDS: GABAPENTIN 600 MG TAB PO SCH (21:08)
[2023-11-20] MEDS: POTASSIUM CHLORIDE CRTAB 20 MEQ TABCR PO SCH (21:09)
[2023-11-20] MEDS: rOPINIRole HCL 2 MG TABLET PO SCH (21:09)
[2023-11-20] MEDS: traZODone HCL 100 MG TAB PO SCH (21:09)
[2023-11-20] MEDS: BACLOFEN 10 MG TAB PO PRN (21:10)
[2023-11-20] MEDS: clonazePAM 0.5 MG TAB PO SCH (21:11)
[2023-11-20] MEDS: LANTUS PER UNIT CHARGE SQ SCH (21:18)
[2023-11-21] MEDS: SODIUM CHLORIDE 0.65% NA SOLN 45 ML (OCEAN) PRN (00:58)
[2023-11-21] MEDS: ACETAMINOPHEN 325 MG TAB PO PRN (01:05)
--- NOTE | 2023-11-21 02:17 | CT Scan Report ---
Exam(s): CT HEAD Without Contrast EXAM: CT Head Without Intravenous Contrast CLINICAL HISTORY: Reason for exam: [email or web address], Eliquis. TECHNIQUE: Axial computed tomography images of the head/brain without intravenous contrast. CTDI is 45.98 mGy and DLP is 799.24 mGy-cm. Automated exposure control was utilized for the study. A dose lowering technique was utilized adhering to the principles of ALARA. Mild motion artifact. COMPARISON: Head CT 06/09/23. FINDINGS: Brain: No mass effect or acute infarct. No acute hemorrhage. Mild atrophy and chronic white matter disease. No interval change. Ventricles: No hydrocephalus or midline shift. Bones/joints: No acute bony lesion. Soft tissues: No scalp hematoma. Sinuses: Clear. Mastoid air cells: No mastoid effusion. IMPRESSION: 1. Stable age-related findings. 2. No acute infarct, bleed, acute intracranial abnormality, or interval change. Electronically signed by: Annabelle Iyer M.D. 11/21/23 02:16 AM
[2023-11-21] MEDS: ASPIRIN 81 MG ECTAB PO SCH (08:21)
[2023-11-21] MEDS: CLOPIDOGREL BISULFATE 75 MG TAB PO SCH (08:21)
[2023-11-21] MEDS: ATORVASTATIN 20 MG TAB PO SCH (08:21)
[2023-11-21] MEDS: PANTOprazole 40 MG TAB PO SCH (08:21)
[2023-11-21 09:48] LABS: Estimated Average Glucose 169 mg/dl; Hemoglobin A1C 7.5 % (4.5-5.6)
--- NOTE | 2023-11-21 10:20 | Pharmacy Report ---
Pharmacy Glycemic Short Note 2 - Date of Service November 21, 2023 - Glycemic Short BSG Results (Last 24 hours): 11/20/23 11/20/23 11/20/23 14:24 15:55 16:29 POC Glucose 110 H 83 83 11/20/23 11/21/23 20:59 07:40 POC Glucose 117 H 117 H OUTPATIENT ANTIDIABETIC REGIMEN: * Tresiba 50 units SQ HS * Novolog 8 units SQ breakfast/lunch, 10 units dinner * tirzepatide 5mg SQ weekly HbA1C: 7.5% (11/20/23) ASSESSMENT: * Pt is a 68 year old female known to the glycemic pharmacy service admitted with ambulatory dysfunction. History of DM2. Pharmacy consulted to assist with inpatient glycemic management. * BSGs 69-200-041oo/dL since admission. Received 15 units of Lantus last night and no bolus insulin. * Ordered a diet, other stressors stable. * Lantus 15 units again this AM (fasting BSG within goal range and decreased PO yesterday). Will plan for an HS Lantus scale tonight depending on BSG. Novolog moderate stress scale for now. PLAN FOR INPATIENT GLYCEMIC CONTROL: * Hold outpatient oral diabetes medications * Basal insulin * Lantus 15 units SQ x 1 this AM then Lantus BID per scale (15/25 units) depending on BSG * Bolus insulin * NovoLog per scale ACHS or Q6hrs while NPO * Goal Range: Low 110 mg/dL - High 140 mg/dL * Correction Factor: 20 mg/dL/unit * Nutritional / Prandial insulin per carb ratio of 1 unit per 7 grams CHO consumed
[2023-11-21] MEDS: DICYCLOMINE HCL 20 MG TAB PO PRN (11:59)
--- NOTE | 2023-11-21 19:11 | Hospitalist Progress Note ---
Date of Service November 21, 2023 delayed entry date of service noted above Assessment & Plan (1) Ambulatory dysfunction: Plan: (1) Ambulatory dysfunction: Plan: per admitting service notes with addendum: This is a 68 y/o female with a history of chronic respiratory failure due to probable interstitial lung disease, on chronic O2 at 4 L, ELISSA on CPAP, chronic diastolic heart failure, PVD, HTN, hyperlipidemia, insulin-requiring DM, CKD with baseline creatinine ~1.6, prior DVT/PE, s/p IVC filter placement and on Eliquis, hx HIT, hypothyroidism, fibromyalgia, RLS and depression who presents to the ED today after a fall at home. Work-up in the ED was negative for acute injury, but pt reported severe pain in her knees when she attempted an ambulatory trial in the ED. She feels like she unsafe to return home on her own so she was referred for admission and possible rehab placement. Of note, it appears that she was originally supposed go to [facility] for rehab after her admission in late Sep (d/c on 10/28) but she declined this option as she had no one to take care of her cats. She is willing to consider possible rehab placement today. - Admit to med surg - PT/OT evaluations - Fall precautions - Pain control prn 11/21 pain well controlled Hip xray ordered continiue pain meds PT/OT eval will likely need Acute Rehab/SNF (2) Weakness: Plan: Suspect multifactorial including complex medical history, polypharmacy, recent hospitalization/deconditioning. See plan for #1 (3) Type 2 diabetes, uncontrolled, with neuropathy: Plan: Chronic, pt reports sugars have been stable for her since being discharged (4) Chronic diastolic heart failure: Plan: Chronic, stable Continue furosemide (5) Chronic respiratory failure: Plan: On 4 L O2 chronically (6) CKD (chronic kidney disease), stage III: Plan: Chronic, stable. Baseline creatinine around 1.6 (7) ELISSA on CPAP: Plan: Chronic - has had difficulty using CPAP recently due to epistaxis but willing to try using while here (8) HTN (hypertension): Plan: Chronic, stable (9) Hypothyroidism: Plan: Chronic, stable Continue levothyroxine (10) Depression with anxiety: Plan: Anxious and tearful today about her fall and inability to walk Continue outpatient meds mood stable now (11) History of pulmonary embolism: Plan: Has IVC filter in place Continue Eliquis Plan Code Status: Full code DVT Prophylaxis: continue Eliquis, has IVC filter Disposition will need Acute Rehab or SNF (2) Weakness: Plan: Suspect multifactorial including complex medical history, polypharmacy, recent hospitalization/deconditioning. See plan for #1 (3) Type 2 diabetes, uncontrolled, with neuropathy: Plan: Chronic, pt reports sugars have been stable for her since being discharged (4) Chronic diastolic heart failure: Plan: Chronic, stable Continue furosemide (5) Chronic respiratory failure: Plan: On 4 L O2 chronically (6) CKD (chronic kidney disease), stage III: Plan: Chronic, stable. Baseline creatinine around 1.6 (7) ELISSA on CPAP: Plan: Chronic - has had difficulty using CPAP recently due to epistaxis but willing to try using while here (8) HTN (hypertension): Plan: Chronic, stable (9) Hypothyroidism: Plan: Chronic, stable Continue levothyroxine (10) Depression with anxiety: Plan: Anxious and tearful today about her fall and inability to walk Continue outpatient meds (11) History of pulmonary embolism: Plan: Has IVC filter in place Continue Eliquis Plan Pt seen and reviewed with collaborating physician, Dr. Montes. Plan of care discussed and as outlined above. Code Status: Full code DVT Prophylaxis: continue Criseldaquis, has IVC filter Admission and Anticipated Discharge Date Admission Date: November 20, 2023 Subjective Follow-up for status post fall, etc. Resting in chair, comfortable, no distress Still having some bilateral knee pain no chest pain, dyspnea, palpitations, dizziness No other new symptoms Review of Systems Review of Systems: all noted and negative except for above Physical Exam Physical Exam: General- oriented x 3, not in distress, speaks in sentences with no effort or accessory muscle use Eyes- anicteric Neck- no JVD Lungs- clear breath sounds bilaterally, no rales/wheezes Heart- normal rate, regular rhythm; no murmurs Abdomen- normal bowel sounds, nondistended, soft, nontender Extremities- no pretibial edema, no calf tenderness Neuro- alert, oriented x 3; no gross focal neurologic deficits Skin- warm & dry Results & Data Results & Data Vital Signs (Past 12 Hours) Vital Signs Temp Pulse Pulse Resp BP Pulse Ox O2 Del Method 11/21/23 15:18 36.4 C L 97 H 18 106/65 99 Nasal Cannula 11/21/23 11:22 36.6 C 80 12 140/80 100 Nasal Cannula 11/21/23 09:23 Nasal Cannula 11/21/23 07:52 36.8 C 84 16 112/66 95 Nasal Cannula O2 Flow Rate 11/21/23 15:18 4 11/21/23 11:22 4 11/21/23 09:23 4 11/21/23 07:52 4 all noted and reviewed including below (5) Chronic respiratory failure Respiratory failure complication: hypoxia Qualified Code(s): J96.11 - Chronic respiratory failure with hypoxia (6) CKD (chronic kidney disease), stage III Chronic kidney disease stage 3 subtype: unspecified whether 3a or 3b Qualified Code(s): N18.30 - Chronic kidney disease, stage 3 unspecified (8) HTN (hypertension) Hypertension type: primary hypertension Qualified Code(s): I10 - Essential (primary) hypertension (9) Hypothyroidism Hypothyroidism type: unspecified Qualified Code(s): E03.9 - Hypothyroidism, unspecified
[2023-11-21] MEDS: LANTUS PER UNIT CHARGE SQ SCH (21:18)
--- NOTE | 2023-11-22 07:39 | XRay Report ---
XR hip LT 2V w pelvis CLINICAL HISTORY: Left hip pain. Evaluate for fracture. COMPARISON: Pelvis and right hip radiographs June 09, 2023. CT of the abdomen and pelvis Januar 2023. FINDINGS: Sacroiliac joints and symphysis pubis are intact. There is no fracture within the pelvis o r hips. Hip joint spaces are preserved. There is no evidence for avascular necrosis of the femoral he ads. No osseous lesions are identified. Left hip joint space is preserved. There is mild osteophytosi s of the left hip. IMPRESSION: 1. No fractures within the pelvis or hips. 2. Mild left hip osteoarthritis. ACT 112: Negative or not required by law. Electronically signed by: David Lugo M.D. 11/22/2023 7:38 AM
--- NOTE | 2023-11-22 08:48 | Pharmacy Report ---
Pharmacy Glycemic Short Note 2 - Date of Service November 22, 2023 - Glycemic Short BSG Results (Last 24 hours): 11/21/23 11/21/23 11/21/23 11:35 16:39 20:41 POC Glucose 197 H 163 H 150 H 11/22/23 07:44 POC Glucose 166 H OUTPATIENT ANTIDIABETIC REGIMEN: * Tresiba 50 units SQ HS * Novolog 8 units SQ breakfast/lunch, 10 units dinner * tirzepatide 5mg SQ weekly HbA1C: 7.5% (11/20/23) ASSESSMENT: 11/22/23: * Patient received 57 units of insulin yesterday (35 units of basal and 22 units of prandial/correctional bolus) * Prior inpatient glycemic data suggests current regimen could be intensified - anticipate increase in basal and tightening of Novolog parameters today * Basal scale slightly adjusted and carb ratio tightened with lunch 11/21/23: * Pt is a 68 year old female known to the glycemic pharmacy service admitted with ambulatory dysfunction. History of DM2. Pharmacy consulted to assist with inpatient glycemic management. * BSGs 32-038-591nt/dL since admission. Received 15 units of Lantus last night and no bolus insulin. * Ordered a diet, other stressors stable. * Lantus 15 units again this AM (fasting BSG within goal range and decreased PO yesterday). Will plan for an HS Lantus scale tonight depending on BSG. Novolog moderate stress scale for now. PLAN FOR INPATIENT GLYCEMIC CONTROL: * Basal insulin * Lantus BID per scale (15/20/25 units) depending on BSG * Bolus insulin - tighten * NovoLog per scale ACHS or Q6hrs while NPO * Goal Range: Low 110 mg/dL - High 140 mg/dL * Correction Factor: 20 mg/dL/unit * Nutritional / Prandial insulin per carb ratio of 1 unit per 6 grams CHO consumed
[2023-11-22 13:13] LABS: Basophils # (auto) 0.07 K/uL (0.00-0.20); Basophils % (auto) 0.7 %; Eosinophils # (auto) 0.63 K/uL (0.00-0.50); Eosinophils % (auto) 5.9 %; Hematocrit (blood only) 41.2 % (37.0-47.0); Hemoglobin 12.3 g/dl (12.0-16.0); Immature Granulocytes # (auto) 0.06 K/uL (0.01-0.20); Immature Granulocytes % (auto) 0.6 %; Lymphocytes # (auto) 2.13 K/uL (1.20-3.40); Mean Corpuscular Hemoglobin 27.2 pg (25.0-34.0); Mean Corpuscular Hgb Conc 29.9 g/dL (32.0-36.0); Mean Corpuscular Volume 91.2 fL (80.0-100.0); Mean Platelet Volume 10.4 fL (9.4-12.4); Monocytes % (auto) 6.6 %; Neutrophils # (auto) 7.08 K/uL (1.40-6.50); Neutrophils % (auto) 66.2 %; Platelet Count 288 K/uL (130-400); RDW Coefficient of Variation 15.8 % (11.5-14.5); RDW Standard Deviation 51.9 fL (36.4-46.3); Red Blood Count 4.52 M/uL (4.20-5.40); White Blood Count 10.67 K/ul (4.8-10.8)
[2023-11-22 13:37] LABS: BUN Creatinine Ratio 17.3 (10-20); Calcium 9.6 mg/dl (8.6-10.3); Creatinine Clr Calc Pharmacy 41.6 ml/min; Est GFR (African American) 37.4 ml/min; Est GFR (Non-African American) 32.3 ml/min; Potassium 3.8 mmol/L (3.5-5.1)
[2023-11-22] MEDS ORDERED: PROMETHAZINE HCL 6.25 MG in SODIUM CHLORIDE 0.9% 50 ML IV PRN (18:01)
--- NOTE | 2023-11-22 19:06 | Hospitalist Progress Note ---
Date of Service November 22, 2023 Assessment & Plan (1) Ambulatory dysfunction: Plan: per admitting service notes with addendum: This is a 68 y/o female with a history of chronic respiratory failure due to probable interstitial lung disease, on chronic O2 at 4 L, ELISSA on CPAP, chronic diastolic heart failure, PVD, HTN, hyperlipidemia, insulin-requiring DM, CKD with baseline creatinine ~1.6, prior DVT/PE, s/p IVC filter placement and on Eliquis, hx HIT, hypothyroidism, fibromyalgia, RLS and depression who presents to the ED today after a fall at home. Work-up in the ED was negative for acute injury, but pt reported severe pain in her knees when she attempted an ambulatory trial in the ED. She feels like she unsafe to return home on her own so she was referred for admission and possible rehab placement. Of note, it appears that she was originally supposed go to [facility] for rehab after her admission in late Sep (d/c on 10/28) but she declined this option as she had no one to take care of her cats. She is willing to consider possible rehab placemen t today. - Admit to med surg - PT/OT evaluations - Fall precautions - Pain control prn 11/22 pain well controlled Hip xray: no fractures, (+) osteoarthritis continiue pain meds PT/OT eval will likely need Acute Rehab/SNF (2) Weakness: Plan: Suspect multifactorial including complex medical history, polypharmacy, recent hospitalization/deconditioning. See plan for #1 (3) Type 2 diabetes, uncontrolled, with neuropathy: Plan: Chronic, pt reports sugars have been stable for her since being discharged (4) Chronic diastolic heart failure: Plan: Chronic, stable Continue furosemide (5) Chronic respiratory failure: Plan: On 4 L O2 chronically (6) CKD (chronic kidney disease), stage III: Plan: Chronic, stable. Baseline creatinine around 1.6 (7) ELISSA on CPAP: Plan: Chronic - has had difficulty using CPAP recently due to epistaxis but willing to try using while here (8) HTN (hypertension): Plan: Chronic, stable (9) Hypothyroidism: Plan: Chronic, stable Continue levothyroxine (10) Depression with anxiety: Plan: Anxious and tearful today about her fall and inability to walk Continue outpatient meds mood stable now (11) History of pulmonary embolism: Plan: Has IVC filter in place Continue Eliquis Plan Code Status: Full code DVT Prophylaxis: continue Eliquis, has IVC filter Disposition will need Acute Rehab or SNF Admission and Anticipated Discharge Date Admission Date: November 20, 2023 Subjective ff up for ambulatory dysfunction, etc seen resting in bed, comfortable states she feels ok overall except for BL knee pain also has L inguinal discomfort no chest pain, dyspnea, palpitations, dizziness no nausea/vomiting, abdominal pain no other symptoms Review of Systems Review of Systems: all noted and negative except for above Physical Exam Physical Exam: General- oriented x 3, not in distress, speaks in sentences with no effort or accessory muscle use Eyes- anicteric Neck- no JVD Lungs- clear breath sounds bilaterally, no rales/wheezes Heart- normal rate, regular rhythm; no murmurs Abdomen- normal bowel sounds, nondistended, soft, nontender Extremities- no pretibial edema, no calf tenderness knees: no erythema/warmth/tenderness Neuro- alert, oriented x 3; no gross focal neurologic deficits Skin- warm & dry Results & Data Results & Data Vital Signs (Past 12 Hours) Vital Signs Temp Pulse Resp BP BP Pulse Ox O2 Del Method 11/22/23 16:08 36.3 C L 80 16 129/73 100 Nasal Cannula 11/22/23 08:13 Nasal Cannula 11/22/23 07:29 36.6 C 90 16 101/63 99 Room Air O2 Flow Rate 11/22/23 16:08 4 11/22/23 08:13 4 11/22/23 07:29 all noted and reviewed including below (5) Chronic respiratory failure Respiratory failure complication: hypoxia Qualified Code(s): J96.11 - Chronic respiratory failure with hypoxia (6) CKD (chronic kidney disease), stage III Chronic kidney disease stage 3 subtype: unspecified whether 3a or 3b Qualified Code(s): N18.30 - Chronic kidney disease, stage 3 unspecified (8) HTN (hypertension) Hypertension type: primary hypertension Qualified Code(s): I10 - Essential (primary) hypertension (9) Hypothyroidism Hypothyroidism type: unspecified Qualified Code(s): E03.9 - Hypothyroidism, unspecified
[2023-11-23] MEDS: MAGNESIUM HYDROXIDE SUSP 30 ML UDC PO PRN (05:25)
[2023-11-23] MEDS: LANTUS PER UNIT CHARGE SQ SCH (08:44)
--- NOTE | 2023-11-23 12:10 | Hospitalist Progress Note ---
Date of Service November 23, 2023 Assessment & Plan (1) Ambulatory dysfunction: Plan: per admitting service notes with addendum: This is a 68 y/o female with a history of chronic respiratory failure due to probable interstitial lung disease, on chronic O2 at 4 L, ELISSA on CPAP, chronic diastolic heart failure, PVD, HTN, hyperlipidemia, insulin-requiring DM, CKD with baseline creatinine ~1.6, prior DVT/PE, s/p IVC filter placement and on Eliquis, hx HIT, hypothyroidism, fibromyalgia, RLS and depression who presents to the ED today after a fall at home. Work-up in the ED was negative for acute injury, but pt reported severe pain in her knees when she attempted an ambulatory trial in the ED. She feels like she unsafe to return home on her own so she was referred for admission and possible rehab placement. Of note, it appears that she was originally supposed go to [facility] for rehab after her admission in late Sep (d/c on 10/28) but she declined this option as she had no one to take care of her cats. She is willing to consider possible rehab placemen t today. - Admit to med surg - PT/OT evaluations - Fall precautions - Pain control prn -Pt likely to need Rehab (2) Weakness: Plan: Suspect multifactorial including complex medical history, polypharmacy, recent hospitalization/deconditioning. See plan for #1 (3) Type 2 diabetes, uncontrolled, with neuropathy: Plan: Chronic, pt reports sugars have been stable for her since being discharged (4) Chronic diastolic heart failure: Plan: Chronic, stable Continue furosemide (5) Chronic respiratory failure: Plan: On 4 L O2 chronically (6) CKD (chronic kidney disease), stage III: Plan: Chronic, stable. Baseline creatinine around 1.6 (7) ELISSA on CPAP: Plan: Chronic - has had difficulty using CPAP recently due to epistaxis but willing to try using while here (8) HTN (hypertension): Plan: Chronic, stable (9) Hypothyroidism: Plan: Chronic, stable Continue levothyroxine (10) Depression with anxiety: Plan: mood stable continue meds (11) History of pulmonary embolism: Plan: Has IVC filter in place Continue Eliquis (12) Constipation: Plan: pt received milk of mag this a.m. will trial dulcolax this afternoon Plan Code Status: Full code DVT Prophylaxis: continue Eliquis, has IVC filter Disposition will need Acute Rehab or SNF Admission and Anticipated Discharge Date Admission Date: November 20, 2023 Supervising Physician Co-Signing Physician Notes I have seen and discussed the case with the collaborating EVIN. I agree with the above progress note. I have reviewed and confirmed the patients medical history, the findings on physical examination, and the patients diagnosis and treatment plan with Aj CLEARY and agree with the information documented. In short, Ms Camp is a 68 y/o female with a history of chronic respiratory failure due to probable interstitial lung disease, on chronic O2 at 4 L, ELISSA on CPAP, chronic diastolic heart failure, PVD, HTN, hyperlipidemia, insulin- requiring DM, CKD with baseline creatinine ~1.6, prior DVT/PE, s/p IVC filter placement and on Eliquis, hx HIT, hypothyroidism, fibromyalgia, RLS and depression who was admitted for evaluation of bilateral knee pain after mechanical fall. Patient with prior right knee replacement and needs left knee, however was informed that her weight/comorbidities are limiting factor. Pain improved today. Exam with no swollen joints nor bruising of knee, nontender to palpation, slight pain on PROM/AROM, but improved from prior days reportedly. Plan for dispo to rehab and OP ortho follow up. Rest of plan as above. I spent a total of 15 minutes coordinating, documenting, and providing care for this patient excluding time spent in the performance of separately billed services. All of the aforementioned completed while collaborating with the assigned advanced practitioner for a full treatment plan Subjective Patient was seen and examined in 307. Follow-up ambulatory dysfunction. Denies fever, chills, sweats, lightheadedness, dizziness, chest pain, shortness with, nausea, vomiting or abdominal pain. She has not moved her bowels in 4 to 5 days. She states she tried milk of mag this morning. She is awaiting rehab. Review of Systems Review of Systems: All systems reviewed & are unremarkable except as noted in HPI & below Physical Exam Physical Exam: Gen: WD/WN, F, NAD, A&O x3 HEENT: Normocephalic, atraumatic, conjunctivae moist, sclerae anicteric, mucous membranes moist. Lung: Clear to Auscultation bilaterally, no wheezes/rales/rhonchi Heart: Regular rate, regular rhythm, no murmurs, rubs, or gallops Abdomen: obese, Soft, NT, ND +BS x 4 Extremities: No edema Skin: Warm, no rash, negative turgor. Results & Data Results & Data Vital Signs (Past 12 Hours) Vital Signs Temp Pulse Resp BP Pulse Ox O2 Del Method O2 Flow Rate 11/23/23 08:03 Nasal Cannula 4 11/23/23 07:34 36.9 C 90 18 109/75 100 Nasal Cannula 4 Medications Administered Current Inpatient Medications Acetaminophen (Acetaminophen 325 Mg Tab) 650 mg PO QID PRN PRN Reason: pain/fever Stop: 12/21/23 00:53 Last Admin: 11/23/23 05:25 Dose: 650 mg Apixaban (Apixaban 2.5 Mg Tab) 2.5 mg PO BID ROBERT Stop: 12/20/23 20:59 Last Admin: 11/23/23 08:47 Dose: 2.5 mg Aspirin (Aspirin 81 Mg Ectab) 81 mg PO DAILY ROBERT Stop: 12/21/23 08:59 Last Admin: 11/23/23 08:48 Dose: 81 mg Atorvastatin Calcium (Atorvastatin 20 Mg Tab) 20 mg PO DAILY ROBERT Stop: 12/21/23 08:59 Last Admin: 11/23/23 08:49 Dose: 20 mg Baclofen (Baclofen 10 Mg Tab) 10 mg PO BID PRN PRN Reason: Muscle Spasm Stop: 12/20/23 16:24 Last Admin: 11/20/23 21:10 Dose: 10 mg Bisacodyl (Bisacodyl 5 Mg Tabec) 5 mg PO DAILY PRN PRN Reason: Constipation Stop: 12/23/23 10:01 Clonazepam (Clonazepam 0.5 Mg Tab) 0.5 mg PO BID ROBERT Stop: 12/20/23 20:59 Last Admin: 11/23/23 08:50 Dose: 0.5 mg Clopidogrel Bisulfate (Clopidogrel Bisulfate 75 Mg Tab) 75 mg PO DAILY ROBERT Stop: 12/21/23 08:59 Last Admin: 11/23/23 08:48 Dose: 75 mg Dextrose (Dextrose 50% 50 Ml Syringe) 25 - 50 ml IV UD PRN; Protocol PRN Reason: Hypoglycemia Protocol Stop: 12/20/23 13:09 Dicyclomine HCl (Dicyclomine Hcl 20 Mg Tab) 20 mg PO QID PRN PRN Reason: abdominal cramping Stop: 12/20/23 16:24 Last Admin: 11/21/23 11:59 Dose: 20 mg Duloxetine HCl (Duloxetine Hcl 60 Mg Cap) 60 mg PO DAILY [facility] Stop: 12/20/23 16:59 Last Admin: 11/23/23 08:48 Dose: 60 mg Duloxetine HCl (Duloxetine Hcl 30 Mg Cap) 30 mg PO DAILY ROBERT Stop: 12/20/23 16:59 Last Admin: 11/23/23 08:49 Dose: 30 mg Furosemide (Furosemide 20 Mg Tab) 60 mg PO BID17 ROBERT Stop: 12/20/23 16:59 Last Admin: 11/23/23 08:49 Dose: 60 mg Gabapentin (Gabapentin 600 Mg Tab) 600 mg PO TID [facility] Stop: 12/20/23 20:59 Last Admin: 11/23/23 08:47 Dose: 600 mg Glucagon (Glucagon For Inj 1 Mg Vial) 1 mg SQ UD PRN; Protocol PRN Reason: Hypoglycemia Protocol Stop: 12/20/23 13:09 Glucose (Glucose 10 Tab/Tube) 4 - 8 tab PO UD PRN; Protocol PRN Reason: Hypoglycemia Treatment Stop: 12/20/23 13:09 Glucose (Glucose 40% Gel 15 Gm Tube) 15 - 30 gm PO UD PRN; Protocol PRN Reason: Hypoglycemia Protocol Stop: 12/20/23 13:09 Promethazine HCl 6.25 mg/ (Sodium Chloride) 50.25 mls @ 201 mls/hr IV Q6H PRN PRN Reason: Nausea And Vomiting Stop: 12/22/23 18:00 Insulin Aspart (Insulin Aspart Per Unit Charge) 0 units SC ACHS [facility] Stop: 12/20/23 16:29 Last Admin: 11/23/23 08:43 Dose: 13 units Insulin Glargine (Lantus Per Unit Charge) 25 units SQ BID [facility] Stop: 12/20/23 20:59 Last Admin: 11/23/23 08:44 Dose: 25 units Levothyroxine Sodium (Levothyroxine Sodium 50 Mcg Tablet) 50 mcg PO DAILYBB [facility] Stop: 12/20/23 16:59 Last Admin: 11/23/23 05:26 Dose: 50 mcg Levothyroxine Sodium (Levothyroxine Sodium 200 Mcg Tablet) 200 mcg PO DAILYBB [facility] Stop: 12/20/23 16:59 Last Admin: 11/23/23 05:26 Dose: 200 mcg Magnesium Hydroxide (Magnesium Hydroxide Susp 30 Ml Udc) 30 ml PO Q6H PRN PRN Reason: Constipation Stop: 12/22/23 17:58 Last Admin: 11/23/23 05:25 Dose: 30 ml Magnesium Oxide (Magnesium Oxide 400 Mg Tab) 400 mg PO BID ROBERT Stop: 12/20/23 20:59 Last Admin: 11/23/23 08:46 Dose: 400 mg Miscellaneous (Carbohydrates For Hypoglycemia ) 15 - 30 gm PO UD PRN PRN Reason: Hypoglycemia Protocol Stop: 12/20/23 13:09 Miscellaneous Information (Pharmacy Glycemic Mgmt Consult) 1 each N/A UD PRN; Protocol PRN Reason: Consult Stop: 12/20/23 20:52 Pantoprazole Sodium (Pantoprazole 40 Mg Tab) 40 mg PO DAILY [facility]; Protocol Stop: 12/21/23 08:59 Last Admin: 11/23/23 08:48 Dose: 40 mg Potassium Chloride (Potassium Chloride Crtab 20 Meq Tabcr) 20 meq PO BID ROBERT Stop: 12/20/23 20:59 Last Admin: 11/23/23 08:47 Dose: 20 meq Ropinirole HCl (Ropinirole Hcl 2 Mg Tablet) 2 mg PO HS ROBERT Stop: 12/20/23 20:59 Last Admin: 11/22/23 21:29 Dose: 2 mg Senna/Docusate Sodium (Docusate Sodium/Senna 50/8.6mg Tab) 1 tab PO BID ROBERT Stop: 12/20/23 20:59 Last Admin: 11/23/23 08:47 Dose: 1 tab Sodium Chloride (Sodium Chloride 0.65% Na Soln 45 Ml (Mcnary)) 2 sprays NA TID PRN PRN Reason: Nasal Congestion Stop: 12/21/23 00:12 Last Admin: 11/21/23 00:58 Dose: 2 sprays Tramadol HCl (Tramadol Hcl 50 Mg Tablet) 50 mg PO TID PRN PRN Reason: Pain Stop: 12/20/23 16:24 Last Admin: 11/23/23 09:37 Dose: 50 mg Trazodone HCl (Trazodone Hcl 100 Mg Tab) 100 mg PO HS ROBERT Stop: 12/20/23 20:59 Last Admin: 11/22/23 21:29 Dose: 100 mg (5) Chronic respiratory failure Respiratory failure complication: hypoxia Qualified Code(s): J96.11 - Chronic respiratory failure with hypoxia (6) CKD (chronic kidney disease), stage III Chronic kidney disease stage 3 subtype: unspecified whether 3a or 3b Qualified Code(s): N18.30 - Chronic kidney disease, stage 3 unspecified (8) HTN (hypertension) Hypertension type: primary hypertension Qualified Code(s): I10 - Essential (primary) hypertension (9) Hypothyroidism Hypothyroidism type: unspecified Qualified Code(s): E03.9 - Hypothyroidism, unspecified
[2023-11-23] MEDS: DICLOFENAC SOD 1% GEL 100 GM TUBE EXT SCH (15:08)
[2023-11-24] MEDS: LANTUS PER UNIT CHARGE SQ SCH ×2 (08:03→22:02)
--- NOTE | 2023-11-24 11:17 | Pharmacy Report ---
Pharmacy Glycemic Short Note 2 - Date of Service November 24, 2023 - Glycemic Short BSG Results (Last 24 hours): 11/23/23 11/23/23 11/23/23 11:20 16:23 20:55 POC Glucose 169 H 110 H 178 H 11/24/23 11/24/23 07:18 11:10 POC Glucose 199 H 168 H OUTPATIENT ANTIDIABETIC REGIMEN: * Tresiba 50 units SQ HS * Novolog 8 units SQ breakfast/lunch, 10 units dinner * tirzepatide 5mg SQ weekly HbA1C: 7.5% (11/20/23) ASSESSMENT: 11/24/23: * BSGs ranging 110-181 mg/dL yesterday w/ elevated fasting BSG this morning of 199 mg/dL * Received 88 units of insulin (50 units of basal and 38 units of prandial/correctional bolus) * Will increase basal and tighten carb ratio 11/22/23: * Patient received 57 units of insulin yesterday (35 units of basal and 22 units of prandial/correctional bolus) * Prior inpatient glycemic data suggests current regimen could be intensified - anticipate increase in basal and tightening of Novolog parameters today * Basal scale slightly adjusted and carb ratio tightened with lunch 11/21/23: * Pt is a 68 year old female known to the glycemic pharmacy service admitted with ambulatory dysfunction. History of DM2. Pharmacy consulted to assist with inpatient glycemic management. * BSGs 87-338-217ck/dL since admission. Received 15 units of Lantus last night and no bolus insulin. * Ordered a diet, other stressors stable. * Lantus 15 units again this AM (fasting BSG within goal range and decreased PO yesterday). Will plan for an HS Lantus scale tonight depending on BSG. Novolog moderate stress scale for now. PLAN FOR INPATIENT GLYCEMIC CONTROL: * Basal insulin * Lantus 25-30-35 units SC BID * Bolus insulin - tighten * NovoLog per scale ACHS or Q6hrs while NPO * Goal Range: Low 110 mg/dL - High 140 mg/dL * Correction Factor: 20 mg/dL/unit * Nutritional / Prandial insulin per carb ratio of 1 unit per 5 grams CHO consumed
--- NOTE | 2023-11-24 13:56 | Hospitalist Progress Note ---
Date of Service November 24, 2023 Assessment & Plan (1) Ambulatory dysfunction: Plan: This is a 68 y/o female with a history of chronic respiratory failure due to probable interstitial lung disease, on chronic O2 at 4 L, ELISSA on CPAP, chronic diastolic heart failure, PVD, HTN, hyperlipidemia, insulin-requiring DM, CKD with baseline creatinine ~1.6, prior DVT/PE, s/p IVC filter placement and on Eliquis, hx HIT, hypothyroidism, fibromyalgia, RLS and depression who presents to the ED today after a fall at home. Work-up in the ED was negative for acute injury, but pt reported severe pain in her knees when she attempted an ambulatory trial in the ED. She feels like she unsafe to return home on her own so she was referred for admission and possible rehab placement. Of note, it appears that she was originally supposed go to [facility] for rehab after her admission in late Sep (d/c on 10/28) but she declined this option as she had no one to take care of her cats. She is willing to consider possible rehab placement today. Ongoing bilateral knee pain, h/o R TKA by Dr. Carrillo years ago and following with [facility] for L knee OA with plans for possible future L TKA but process complicated by BMI and other comorbidities. Patient has been losing weight, due to re-evaluate possibility of TKA but interested in second opinion. Routine consult placed for [facility]. - Fall precautions - Pain control prn -Accepted to rehab, bed not available until early next week (2) Weakness: Plan: Suspect multifactorial including complex medical history, polypharmacy, recent hospitalization/deconditioning. See plan for #1 (3) Type 2 diabetes, uncontrolled, with neuropathy: Plan: Chronic, pt reports sugars have been stable for her since being discharged (4) Chronic diastolic heart failure: Plan: Chronic, stable Continue furosemide (5) Chronic respiratory failure: Plan: On 4 L O2 chronically (6) CKD (chronic kidney disease), stage III: Plan: Chronic, stable. Baseline creatinine around 1.6 (7) ELISSA on CPAP: Plan: Chronic - has had difficulty using CPAP recently due to epistaxis but willing to try using while here (8) HTN (hypertension): Plan: Chronic, stable (9) Hypothyroidism: Plan: Chronic, stable Continue levothyroxine (10) Depression with anxiety: Plan: mood stable continue meds (11) History of pulmonary embolism: Plan: Has IVC filter in place Continue Eliquis (12) Constipation: Plan: Had BM 11/23, continue bowel regimen Plan Code Status: Full code DVT Prophylaxis: continue Eliquis, has IVC filter Disposition awaiting SNF rehab, bed available early next week Patient seen in collaboration with Dr. Adorno. Please see addendum. I spent a total of 45 minutes coordinating, documenting, and providing care for this patient excluding time spent in the performance of separately billed services. Admission and Anticipated Discharge Date Admission Date: November 20, 2023 Supervising Physician Co-Signing Physician Notes I have seen and discussed the case with the collaborating EVIN. I agree with the above progress note. I have reviewed and confirmed the patients medical history, the findings on physical examination, and the patients diagnosis and treatment plan with Aj CLEARY and agree with the information documented. In short, Ms Camp is a 68 y/o female with a history of chronic respiratory failure due to probable interstitial lung disease, on chronic O2 at 4 L, ELISSA on CPAP, chronic diastolic heart failure, PVD, HTN, hyperlipidemia, insulin-requir ing DM, CKD with baseline creatinine ~1.6, prior DVT/PE, s/p IVC filter placement and on Eliquis, hx HIT, hypothyroidism, fibromyalgia, RLS and depression who was admitted for evaluation of bilateral knee pain after mechanical fall. Patient with prior right knee replacement and needs left knee, however was informed that her weight/comorbidities are limiting factor. Pain improved today. Exam with no swollen joints nor bruising of knee, nontender to palpation, slight pain on PROM/AROM. Sitting in bedside chair today. Plan for dispo to rehab and OP ortho follow up. Rest of plan as above. I spent a total of 15 minutes coordinating, documenting, and providing care for this patient excluding time spent in the performance of separately billed services. All of the aforementioned completed while collaborating with the assigned advanced practitioner for a full treatment plan Subjective Patient was seen and examined in 307 in follow-up for ambulatory dysfunction. No acute events overnight. Still with chronic knee pain, participating with PT/OT. Denies fever, chills, lightheadedness, CP, SOB, N/V, abdominal pain, dysuria. Had a bowel movement. Otherwise resting comfortably. Awaiting rehab placement. Review of Systems Review of Systems: At least ten systems reviewed and negative except as noted in the HPI. Physical Exam Physical Exam: Gen: WD/WN, F, NAD, A&O x3, resting comfortably HEENT: Normocephalic, atraumatic, conjunctivae moist, sclerae anicteric, mucous membranes moist. Lung: Clear to Auscultation bilaterally, no wheezes/rales/rhonchi Heart: Regular rate, regular rhythm, no murmurs, rubs, or gallops Abdomen: obese, Soft, NT, ND +BS x 4 Extremities: Bilateral knee pain with ROM, no edema Skin: Warm, no rash Results & Data Results & Data Vital Signs (Past 12 Hours) Vital Signs Temp Pulse Resp BP Pulse Ox O2 Del Method O2 Flow Rate 11/24/23 07:53 Nasal Cannula 4 11/24/23 07:52 36.4 C L 93 H 18 151/78 H 100 Nasal Cannula 4 Diagnostic Findings Knee X-Ray 11/20/23 09:08 XR knee RT 1 or 2V routine, XR knee LT 1 or 2V routine CLINICAL HISTORY: fall. Bilateral knee pain. COMPARISON STUDY: Left knee 09/28/2023. Right knee 10/24/2020. FINDINGS: There is a right total knee arthroplasty. The hardware is intact. Small bilateral knee effusions. Mild anterior soft tissue swelling. Tricompartmental osteoarthritis within the left knee most pronounced at the medial compartment. No acute fracture or dislocation within the right or left knee. IMPRESSION: 1. No acute fractures within the right or left knee. 2. Small bilateral knee effusions. ACT 112: Negative or not required by law. Electronically signed by: Ernesto France M.D. 11/20/2023 9:51 AM Knee X-Ray 11/20/23 09:08 XR knee RT 1 or 2V routine, XR knee LT 1 or 2V routine CLINICAL HISTORY: fall. Bilateral knee pain. COMPARISON STUDY: Left knee 09/28/2023. Right knee 10/24/2020. FINDINGS: There is a right total knee arthroplasty. The hardware is intact. Small bilateral knee effusions. Mild anterior soft tissue swelling. Tricompartmental osteoarthritis within the left knee most pronounced at the medial compartment. No acute fracture or dislocation within the right or left knee. IMPRESSION: 1. No acute fractures within the right or left knee. 2. Small bilateral knee effusions. ACT 112: Negative or not required by law. Electronically signed by: Ernesto France M.D. 11/20/2023 9:[address] 11/20/23 09:[address] DOSE: 580.53 mGy.cm HISTORY: fall TECHNIQUE: Multiaxial CT images of the head were performed without the use of intravenous contrast. Automated exposure control was utilized for this study. A dose lowering technique was utilized adhering to the principles of ALARA. Comparison: Head CT 06/09/2023. Findings: The paranasal sinuses and mastoid air cells are clear. The calvarium and skull base are intact. There is no mass, hematoma, midline shift, acute infarct. White matter hypodensity is nonspecific but suggestive of microvascular ischemic change. The ventricles and sulci demonstrate mild age-related involutional changes. Impression: No acute intracranial abnormality. Atrophy and microvascular ischemic changes. ACT 112: Negative or not required by law. Electronically signed by: Ernesto France M.D. 11/20/2023 9:[address] 11/21/23 01:14 Exam(s): CT HEAD Without Contrast EXAM: CT Head Without Intravenous Contrast CLINICAL HISTORY: Reason for exam: Prince mcfadden. TECHNIQUE: Axial computed tomography images of the head/brain without intravenous contrast. CTDI is 45.98 mGy and DLP is 799.24 mGy-cm. Automated exposure control was utilized for the study. A dose lowering technique was utilized adhering to the principles of ALARA. Mild motion artifact. COMPARISON: Head CT 06/09/23. FINDINGS: Brain: No mass effect or acute infarct. No acute hemorrhage. Mild atrophy and chronic white matter disease. No interval change. Ventricles: No hydrocephalus or midline shift. Bones/joints: No acute bony lesion. Soft tissues: No scalp hematoma. Sinuses: Clear. Mastoid air cells: No mastoid effusion. IMPRESSION: 1. Stable age-related findings. 2. No acute infarct, bleed, acute intracranial abnormality, or interval change. Electronically signed by: Annabelle Iyer M.D. 11/21/23 02:16 AM Hip/Pelvis X-Ray 11/21/23 19:11 XR hip LT 2V w pelvis CLINICAL HISTORY: Left hip pain. Evaluate for fracture. COMPARISON: Pelvis and right hip radiographs June 09, 2023. CT of the abdomen and pelvis October 24, 2023. FINDINGS: Sacroiliac joints and symphysis pubis are intact. There is no fracture within the pelvis or hips. Hip joint spaces are preserved. There is no evidence for avascular necrosis of the femoral heads. No osseous lesions are identified. Left hip joint space is preserved. There is mild osteophytosis of the left hip. IMPRESSION: 1. No fractures within the pelvis or hips. 2. Mild left hip osteoarthritis. ACT 112: Negative or not required by law. Electronically signed by: David Lugo M.D. 11/22/2023 7:38 AM (5) Chronic respiratory failure Respiratory failure complication: hypoxia Qualified Code(s): J96.11 - Chronic respiratory failure with hypoxia (6) CKD (chronic kidney disease), stage III Chronic kidney disease stage 3 subtype: unspecified whether 3a or 3b Qualified Code(s): N18.30 - Chronic kidney disease, stage 3 unspecified (8) HTN (hypertension) Hypertension type: primary hypertension Qualified Code(s): I10 - Essential (primary) hypertension (9) Hypothyroidism Hypothyroidism type: unspecified Qualified Code(s): E03.9 - Hypothyroidism, u nspecified
[2023-11-24] MEDS: ONDANSETRON 4 MG OD TAB PO PRN (21:21)
[2023-11-24] MEDS: oxyCODONE HCL IR 5 MG TAB (IMMEDIATE RELEASE) PO STA (22:02)
--- NOTE | 2023-11-24 22:33 | CT Scan Report ---
Exam(s): CT ABDOMEN + PELVIS Without Contrast EXAM: CT Abdomen and Pelvis Without Intravenous Contrast CLINICAL HISTORY: Reason for exam: severe abdominal pain. TECHNIQUE: Axial computed tomography images of the abdomen and pelvis without intravenous contrast. CTDI is 28.28 mGy and DLP is 1479.25 mGy-cm. Automated exposure control was utilized for the study. A dose lowering technique was utilized adhering to the principles of ALARA. COMPARISON: 10/24/2023 FINDINGS: ABDOMEN: Liver: Unremarkable. Gallbladder and bile ducts: Cholecystectomy. Pancreas: Unremarkable. Spleen: Unremarkable. Adrenals: Unremarkable. Kidneys and ureters: Moderate right-sided hydronephrosis with perinephric fat stranding to the level of the UPJ. No obstructing stone. Left kidney is unremarkable. Stomach and bowel: Ventral hernia containing nonobstructed transverse colon. PELVIS: Appendix: No findings to suggest acute appendicitis. Bladder: Unremarkable. Reproductive: Unremarkable as visualized. ABDOMEN and PELVIS: Intraperitoneal space: Unremarkable. No free air. No significant fluid collection. Bones/joints: Moderate degenerative changes in the spine. Soft tissues: See above. Vasculature: Aortobiiliac atherosclerotic calcifications. IVC filter in place. Lymph nodes: Unremarkable. IMPRESSION: Moderate right-sided hydronephrosis with perinephric fat stranding to the level of the UPJ. No obstructing stone. Electronically signed by: Addy Quinones MD 11/24/23 22:32 PM
[2023-11-24 22:47] LABS: Basophils # (auto) 0.06 K/uL (0.00-0.20); Basophils % (auto) 0.4 %; Eosinophils # (auto) 0.41 K/uL (0.00-0.50); Eosinophils % (auto) 2.6 %; Hemoglobin 12.8 g/dl (12.0-16.0); Immature Granulocytes # (auto) 0.07 K/uL (0.01-0.20); Immature Granulocytes % (auto) 0.5 %; Lymphocytes # (auto) 1.07 K/uL (1.20-3.40); Lymphocytes % (auto) 6.9 %; Mean Corpuscular Hemoglobin 27.2 pg (25.0-34.0); Mean Corpuscular Hgb Conc 30.5 g/dL (32.0-36.0); Mean Corpuscular Volume 89.2 fL (80.0-100.0); Mean Platelet Volume 10.4 fL (9.4-12.4); Monocytes # (auto) 0.84 K/uL (0.11-0.59); Monocytes % (auto) 5.4 %; Neutrophils # (auto) 13.09 K/uL (1.40-6.50); Neutrophils % (auto) 84.2 %; Platelet Count 298 K/uL (130-400); RDW Coefficient of Variation 15.2 % (11.5-14.5); RDW Standard Deviation 49.8 fL (36.4-46.3); Red Blood Count 4.71 M/uL (4.20-5.40); White Blood Count 15.54 K/ul (4.8-10.8)
[2023-11-24 22:58] LABS: Bilirubin,Total 0.4 mg/dl (0.2-1.0); Calcium 9.7 mg/dl (8.6-10.3); Magnesium 1.8 mg/dl (1.7-2.4)
[2023-11-24 23:04] LABS: BUN Creatinine Ratio 15.6 (10-20); Creatinine Clr Calc Pharmacy 35.1 ml/min; Est GFR (African American) 30.5 ml/min; Est GFR (Non-African American) 26.3 ml/min; Globulin 4.1 gm/dl (2.5-4.0); Total Protein 8.1 gm/dl (6.0-8.3)
[2023-11-25] MEDS: INSULIN ASPART PER UNIT CHARGE SC SCH (00:14)
[2023-11-25] MEDS: PIPER/TAZO 4.5g in D5W MINI-B 100 ML IV ONE (00:15)
[2023-11-25] MEDS: SODIUM CHLORIDE 0.9% 1,000 ML IV SCH ×2 (00:16→02:40)
[2023-11-25] MEDS: SODIUM CHLORIDE 0.9% 500 ML IV SCH (00:16)
[2023-11-25 00:23] LABS: Appearance Urine Turbid (Clear); Bacteria Urine Automated Negative (Negative); Bilirubin Urine Negative (Negative); Blood Urine 3+ (Negative); Color Urine Orange; Glucose Urine UA Negative (Negative); Ketones Urine Negative (Negative); Leukocyte Esterase Urine 3+ (Negative); Nitrite Urine Negative (Negative); Protein Urine 3+ (Negative); Specific Gravity Urine 1.011 (1.000-1.030); Urobilinogen Urine Negative (Negative); WBC Urine Automated >30 /hpf (0-5)
[2023-11-25 00:42] LABS: RBC Urine Automated >30 /hpf (0-4)
[2023-11-25] MEDS ORDERED: VANCOMYCIN CONSULT ACTIVE PRN (02:39)
[2023-11-25] MEDS: ACETAMINOPHEN 1,000 MG/100 ML VIAL IV STA ×2 (03:10→15:58)
[2023-11-25 03:33] LABS: iSTAT Arterial Blood Gas HCO3 28 meg/L (19-24); iSTAT Arterial Blood Gas pCO2 41 mmHg (35-46); iSTAT Arterial Blood Gas pH 7.45 (7.35-7.45); iSTAT Arterial Blood Gas pO2 71 mmHg (80-95); iSTAT Carbon Dioxide 30 mmol/L (24-31); iSTAT Hematocrit 34 % (37-47); iSTAT Hemoglobin 11.6 g/dl (12.0-16.0); iSTAT Potassium 3.8 mmol/L (3.3-5.0); iSTAT Sodium 134 mmol/L (135-144)
[2023-11-25] MEDS: VANCOMYCIN HCL 2,250 MG in SODIUM CHLORIDE 0.9% 500 ML IV STA (04:09)
[2023-11-25] MEDS: PIPERACILLIN/TAZOBACTAM 4.5 GM in DEXTROSE 5% MINI-B 100 ML IV SCH (05:25)
[2023-11-25 05:45] LABS: Hematocrit (blood only) 35.5 % (37.0-47.0); Hemoglobin 10.7 g/dl (12.0-16.0); Mean Corpuscular Hgb Conc 30.1 g/dL (32.0-36.0); Mean Corpuscular Volume 89.6 fL (80.0-100.0); Mean Platelet Volume 10.1 fL (9.4-12.4); Platelet Count 278 K/uL (130-400); RDW Coefficient of Variation 15.4 % (11.5-14.5); RDW Standard Deviation 50.7 fL (36.4-46.3); Red Blood Count 3.96 M/uL (4.20-5.40)
[2023-11-25 05:59] LABS: BUN Creatinine Ratio 16.6 (10-20); Calcium 8.4 mg/dl (8.6-10.3); Creatinine Clr Calc Pharmacy 38.5 ml/min; Est GFR (African American) 31.5 ml/min; Est GFR (Non-African American) 27.1 ml/min; Magnesium 1.5 mg/dl (1.7-2.4); Potassium 3.9 mmol/L (3.5-5.1)
[2023-11-25 06:06] LABS: Basophils # (auto) 0.04 K/uL (0.00-0.20); Basophils % (auto) 0.3 %; Eosinophils # (auto) 0.16 K/uL (0.00-0.50); Eosinophils % (auto) 1.3 %; Immature Granulocytes # (auto) 0.07 K/uL (0.01-0.20); Immature Granulocytes % (auto) 0.6 %; Lymphocytes # (auto) 0.55 K/uL (1.20-3.40); Lymphocytes % (auto) 4.4 %; Monocytes # (auto) 0.32 K/uL (0.11-0.59); Monocytes % (auto) 2.5 %; Neutrophils # (auto) 11.46 K/uL (1.40-6.50); Neutrophils % (auto) 90.9 %; Troponin I High Sensitivity 10.3 pg/ml (0-14)
--- NOTE | 2023-11-25 07:27 | Communication Note ---
Date of Service: November 25, 2023 Last night patient complained of abdominal pain.gave po oxy. did labs and ct abd/pelvis. labs showed leukocytosis, lactic acid was 3.2 Cr .19(ELSIE on CKD )ct abd/pelvis showed previous right upj obstruction. placed on zosyn and gave fluids. later she spiked temp. tachycardia, had transient hypotension . Gave litre fluid bolus.Saw patient. Says her abdominal pain improved. somewhat drowsy. not using cpap. aded iv vanco. transferred to tele. UA came back positive. Morning Labs improving. Abg ok.held lasix and potassium supplements. cut back on fluids.Urology consult.Close monitor. Notified Am providers.
--- NOTE | 2023-11-25 08:39 | Urology Consultation ---
<Statement entered by Al Arriaga MD - 11/25/23 12:20> I have discussed Ms. Camp's case with TATIANA Wilkinson and agree with the above documentation. With new fevers and tachycardia, there is concern for possible urinary infection. The hydronephrosis raises concern for right-sided obstruction. We will plan on right ureteral stent placement to decompress the urinary tract and allow maximal drainage. -Al Arriaga MD. Date of Consultation November 25, 2023 Assessment & Plan (1) Hydronephrosis: (2) Fever: 68 yo/F admitted for weakness and ambulatory dysfunction. Urology consulted for right flank pain and right UPJ obstruction Patient developed right flank/abdominal pain yesterday evening Workup included CT imaging which showed known right UPJ obstruction, right perinephric stranding, similar to prior CT exam on 10/24 Patient developed fever and tachycardia overnight Urinalysis showed 3+ LE, >30 WBC, >30 RBC, 10-20 epithelials, negative for bacteria Urine and blood cultures are pending and she was started on antibiotics Today she reports abdominal pain is improved, has minimal left flank/abdominal pain today Remains tachycardic, Temp 38.0 this am, Tmax 39.2 (@0200) Labs today-creatinine 1.87, WBC 12.6, hemoglobin 10.7 Recommend further work-up for fever to rule out other etiologies UA had blood, leukocytes, and pyuria, but was negative for bacteria- possible contamination (10-20 epithelials) vs infection Continue broad-spectrum antibiotics and follow cultures Her right UPJ is chronic/stable However, she may require right ureteral stent placement if she clinically worsens with fever, concern for UTI, persistent flank pain Discussed possible right ureteral stent placement with patient if indicated and she verbalized understanding Recommend keep NPO for now while pending further work-up for fever Patient's respiratory PCR panel was negative Remains tachycardic, intermittent fever since overnight Discussed plan of care with Dr. Arriaga Will plan for cystoscopy, retrograde pyelogram and right ureteral stent placement in OR today See attending note for further details History of Present Illness Reason for Consultation: acute r flank pain, chronic r hydro/UPJ obstruction Requesting Physician: Dr. Adorno Attending Physician: Keya Adorno MD History of Present Illness This is a 68-year-old female with past medical history of morbid obesity, type 2 diabetes, chronic hypoxic respiratory failure on supplemental oxygen, interstitial lung disease, obstructive sleep apnea on CPAP, CHF, CKD, history of DVT and PE, and multiple other comorbidities who presented to the emergency department on 11/20/23 for weakness, fall and ambulatory dysfunction and was admitted to the hospital medicine service for further evaluation. Of note, she was hospitalized 09/19/2023 through 10/02/2023 with Klebsiella oxytoca UTI, pyelonephritis and bacteremia. She was hospitalized again 10/24/23-10/28/23 for abdominal pain, diarrhea and weakness. Urology was consulted during her previous admission for right UPJ obstruction and microscopic hematuria and has been undergoing outpatient work-up with our service. Urology consulted for acute right flank pain, chronic right hydro/UPJ obstruction. Patient developed right flank pain yesterday evening. CT A/P 11/24/23 showed moderate right-sided hydronephrosis with perinephric fat stranding to the level of the UPJ, no obstructing stones; similar to prior exam on 10/24/2023. She became hypotensive, tachycardic and febrile overnight (Tmax 39.2) Urinalysis 11/24 noted turbid urine, 3+ protein, 3+ blood, 3+ leukocyte esterase, >30 WBC, >30 RBC, 10-20 epithelial cells; negative for bacteria Urine and blood cultures are pending Patient was started on IV Zosyn and Vancomycin Patient seen and examined at bedside this morning. She is awake and resting in bed, no apparent distress. She reports abdominal pain started yesterday evening. Improved at present. When asked where pain is located she points to her left side. Voiding without difficulty. Denies dysuria or hematuria. She reports fever/chills starting yesterday evening. Denies nausea or vomiting. Denies cough or worsening shortness of breath. Wears supplemental oxygen at baseline. Allergies Allergy/AdvReac Type Severity Reaction Status Date / Time morphine Allergy Severe Swelling, Verified 11/20/23 10:52 "Violent reaction- almost " dapagliflozin [From Farxiga] Allergy Intermediate Yeast Verified 11/20/23 10:52 infections tetanus toxoid, adsorbed Allergy Intermediate Passed Verified 11/20/23 10:52 out, "got sick" as child bupropion [From Wellbutrin] AdvReac Intermediate Recurrent Verified 11/20/23 10:52 falls as per patient codeine AdvReac Intermediate Hallucinati Verified 11/20/23 10:52 ons empagliflozin AdvReac Intermediate Yeast Verified 11/20/23 10:52 [From Jardiance] infections heparin AdvReac Intermediate HIT, Verified 11/20/23 10:52 "Fluid in lungs" hydrocodone [From Vicodin] AdvReac Intermediate Drowsy Verified 11/20/23 10:52 Home Medications Medication Instructions Recorded Confirmed Type aspirin 81 mg tablet,delayed 81 mg PO DAILY 09/20/23 11/20/23 History release atorvastatin 20 mg tablet 20 mg PO DAILY 09/20/23 11/20/23 History baclofen 10 mg tablet 10 mg PO BID PRN Muscle Spasm 09/20/23 11/20/23 History clonazepam 0.5 mg tablet 0.5 mg PO BID 09/20/23 11/20/23 History clopidogrel 75 mg tablet 75 mg PO DAILY 09/20/23 11/20/23 History duloxetine 60 mg capsule,delayed See Rx Instructions .Route .COMPLEX 09/20/23 11/20/23 History release furosemide 40 mg tablet 60 mg PO BID 09/20/23 11/20/23 History gabapentin 300 mg capsule 600 mg PO TID 09/20/23 11/20/23 History insulin aspart U-100 100 unit/mL 8 unit subcut UD 09/20/23 11/20/23 History (3 mL) subcutaneous pen (Novolog FlexPen U-100 Insulin aspart) insulin degludec 100 unit/mL (3 50 unit subcut HS 09/20/23 11/20/23 History mL) subcutaneous pen (Tresiba FlexTouch U-100 insulin) levothyroxine 200 mcg tablet See Rx Instructions .Route .COMPLEX 09/20/23 11/20/23 History levothyroxine 50 mcg tablet See Rx Instructions .Route .COMPLEX 09/20/23 11/20/23 History magnesium oxide 400 mg (241.3 mg 400 mg PO BID 09/20/23 11/20/23 History magnesium) tablet omeprazole 20 mg capsule,delayed 20 mg PO DAILY 09/20/23 11/20/23 History release oxycodone 5 mg tablet 5 mg PO Q6H PRN Pain 09/20/23 11/20/23 History potassium chloride 20 mEq 20 meq PO BID 09/20/23 11/20/23 History tablet,extended release(part/cryst) ropinirole 2 mg tablet 2 mg PO HS 09/20/23 11/20/23 History sennosides 8.6 mg-docusate sodium 1 tab PO BID 09/20/23 11/20/23 History 50 mg tablet (Senna-Time S) tirzepatide 5 mg/0.5 mL 5 mg subcut WK 09/20/23 11/20/23 History subcutaneous pen injector (Mounjaro) tramadol 50 mg tablet 50 mg PO TID PRN Pain 09/20/23 11/20/23 History trazodone 100 mg tablet 100 mg PO HS 09/20/23 11/20/23 History Vit D3 1000iu 200+50 Softge 1 tab PO QAM 10/24/23 11/20/23 History apixaban 2.5 mg tablet (Eliquis) 2.5 mg PO BID 10/24/23 11/20/23 History dicyclomine 20 mg tablet 20 mg PO QID PRN abdominal cramping 10/24/23 11/20/23 History duloxetine 30 mg capsule,delayed See Rx Instructions .Route .COMPLEX 10/24/23 11/20/23 History release triamcinolone acetonide 0.5 % 1 applic topical BID PRN chest rash 10/24/23 11/20/23 History topical cream Patient History Medical History UTI due to Klebsiella species Hypotension Acute pyelonephritis Hypomagnesemia Mitral valve stenosis Echo 06/2023: Borderline mild mitral stenosis secondary to severe mitral annular calcification Chronic hypoxemic respiratory failure Cataract, bilateral Lumbago with sciatica Lower extremity pain, bilateral Neuropathy feet On home oxygen therapy 3L continuous CHF (congestive heart failure) Follows with Dr. Woodall Subclavian artery stenosis Cerebrovascular duplex study 06/2023: Retrograde flow in the right vertebral artery. 50-69% proximal right subclavian artery stenosis. Antegrade flow in the left vertebral artery. Normal flow in the left subclavian artery. Carotid stenosis, right Cerebrovascular duplex 07/11/23: 80-99% R ICA stenosis. No hemodynamically significant stenosis in the LICA. Diabetes mellitus, type II CKD (chronic kidney disease), stage III Follows with [facility] on CPAP CPAP + 3L O2 (O2 is continuous) HTN (hypertension) HLD (hyperlipidemia) Morbid obesity HIT (heparin-induced thrombocytopenia) 2009, [facility] then life flight to [place] > "resolved" Depression with anxiety Hypothyroidism History of pulmonary embolism 2008 s/p zoraida filter GERD (gastroesophageal reflux disease) RLS (restless legs syndrome) History of DVT (deep vein thrombosis) 2008 (during ICU [place] admission/PNA) Presence of IVC filter 2008 Fibromyalgia Surgical History Family history of reaction to anesthesia Brother/niece- PONV Brother- "wakes up violent" History of colostomy reversal History of tooth extraction History of arthroscopy left ankle History of incisional hernia repair Nausea and vomiting after administration of anesthetic agent History of colonoscopy History of cholecystectomy History of total right knee replacement History of tracheostomy 06/2009 (per [facility] records), secondary to acute respiratory failure in setting of PNA, reversed a few months later History of thyroidectomy, total 2010 History of colon resection secondary to R colon perforation, resected treated with colostomy and eventual reversal in 2008, Dr. Lerma Family History Father , age 74 Lung cancer Mother , age 45 Cirrhosis Social History Smoking Status: Former smoker Tobacco Type: Cigarettes Cigarettes Per Day: 1996; Second Hand Exposure: No; Do You Dip or Chew Tobacco: No; Hx Alcohol Use: No Hx Substance Use: No Preferred Language: [place] Communication Ability: Effective Pillow Agent Required: No Beliefs That Will Affect Care: None marital status: Single Current Living Situation: Alone Current Living Situation Comment: Lives by self in apartment How many Children do You have: 0 Feels Safe at Home: Yes Assistive Devices: Oxygen - Continuous, Walker and Other Review of Systems Review of Systems: All systems reviewed & are unremarkable except as noted in HPI & below Physical Exam Constitutional: + morbidly obese; no acute distress Respiratory: no respiratory distress and no labored breathing Supplemental oxygen in place Cardiovascular: Rate/Rhythm: + tachycardic Gastrointestinal (Abdomen): Inspection/Auscultation: abdomen normal to inspection Percussion/Palpation: abdomen soft; abdomen nontender Musculoskeletal: Head/Neck/Chest: normocephalic Skin: mild erythema noted at her right ankle area Neurologic: moves all extremities and awake Psychiatric: Orientation: alert and oriented x 3 Genitourinary: Mild tenderness to palpation over the left flank Results & Data Vital Signs (Past 12 Hours) Vital Signs Temp Pulse Pulse Pulse Resp BP BP 11/25/23 07:50 38.0 C H 120 H 18 132/56 L 11/25/23 07:11 11/25/23 05:33 37.2 C 112 H 20 118/55 L 11/25/23 04:15 11/25/23 04:09 37.3 C 112 H 138/64 11/25/23 03:47 38.7 C H 113 H 24 130/62 11/25/23 03:17 118 H 22 132/72 11/25/23 02:56 38 C H 117 H 138/79 11/25/23 02:45 117 H 11/25/23 02:19 124 H 11/25/23 02:18 67/47 L 11/25/23 02:04 39.2 C H 117 H 99/35 L 11/24/23 22:50 Pulse Ox O2 Del Method O2 Flow Rate 11/25/23 07:50 95 Nasal Cannula 4 11/25/23 07:11 Nasal Cannula 5 11/25/23 05:33 92 Nasal Cannula 5 11/25/23 04:15 Nasal Cannula 4 11/25/23 04:09 11/25/23 03:47 93 Nasal Cannula 4 11/25/23 03:17 95 Nasal Cannula 4 11/25/23 02:56 94 Nasal Cannula 4 11/25/23 02:45 11/25/23 02:19 11/25/23 02:18 11/25/23 02:04 97 Nasal Cannula 4 11/24/23 22:50 Nasal Cannula 4 PG Care Time/CCT Total # of Minutes Spent Total Time Spent with Patient: Total time spent is greater than 50% in coordination of care (as documented) at patient's floor/unit and/or counseling patient: Coding Level of Care Code 86888 INT INP/OBS CARE 2/55MIN Diagnoses Hydronephrosis N13.30 Hydronephrosis type: unspecified Fever R50.9 (1) Hydronephrosis Hydronephrosis type: unspecified Qualified Code(s): N13.30 - Unspecified hydronephrosis
[2023-11-25 08:59] LABS: C Reactive Protein 6.34 mg/dl (0-0.5)
--- NOTE | 2023-11-25 09:01 | Ultrasound Report ---
RIGHT LOWER EXTREMITY VENOUS DOPPLER HISTORY: Right leg edema erythema/pain COMPARISON STUDY: None. FINDINGS: There is normal compressibility, flow, and augmentation within the right lower extremity de ep venous system. IMPRESSION: No DVT within the right lower extremity ACT 112: Negative or not required by law. Electronically signed by: Ernesto France M.D. 11/25/2023 9:00 AM
--- NOTE | 2023-11-25 09:07 | XRay Report ---
XR knee RT 1 or 2V routine CLINICAL HISTORY: assess effusion/septic joint?. Right knee pain. COMPARISON STUDY: Right knee 11/20/2023. FINDINGS: There is again noted a right total knee arthroplasty. The hardware is intact. No fracture o r dislocation. No abnormal periprosthetic lucency. No significant soft tissue swelling. No knee effus ion. IMPRESSION: 1. Right total knee arthroplasty. The hardware appears intact. 2. No knee effusion. ACT 112: Negative or not required by law. Electronically signed by: Ernesto France M.D. 11/25/2023 9:06 AM
[2023-11-25] MEDS: MAGNESIUM SULFATE / D5W 1 GM/100 ML BAG IV SCH (09:22)
[2023-11-25] MEDS ORDERED: VANCOMYCIN HCL 1,000 MG in SODIUM CHLORIDE 0.9% 250 ML IV SCH (10:00)
--- NOTE | 2023-11-25 10:18 | Orthopedic Consultation ---
Date of Consultation November 25, 2023 Assessment & Plan (1) Left knee DJD: 68-year-old ill-appearing, obese, white female with below-stated past medical history and ongoing illness. Patient currently febrile and somnolent answering some questions appropriately with complaints of knee pain. Patient with history of right total knee arthroplasty performed by Dr. Carrillo in 2013. Patient was slated to be taken to surgery in 2017 for her left knee but was canceled for unknown reasons. Currently she has tricompartmental arthritis of the left knee with minimal effusion. Another knee film was taken today of the right knee which showed no effusion and hardware intact. The right total knee prosthesis is well-seated and in good alignment. I cannot appreciate any lucencies or loosening of the prosthesis at this time. No fractures. I do not feel that either knee has infection ongoing. Her knee pain seems to be over the medial aspect of the joint lines bilaterally. With her mild confusion during her exam, it is hard to determine where some of the discomfort is coming from. She does have some weakness with straight leg raise. With her ongoing fevers at this time, I do not feel she is a candidate for any type of steroid injection in the left knee. She does not feel unstable bilaterally. She would definitely benefit from a left total knee arthroplasty however with her comorbidities, I feel that she may be a better candidate to have this done at a tertiary facility. She currently sees [facility] orthopedics and they may be able to have this taken care of in the future when she is more stable to be done at [facility]. I discussed this with Dr. White as well as Dr. Carrillo's team which they concur. I would also consider getting some dedicated lumbar spine films with noted degenerative changes suggested on the CT scan of the abd/pelvis CT. some of her weakness may be coming from her low back. Her exam is somewhat limited with her feeling supported today. I will see if I can have our on-call PA stop by and see her tomorrow or Tuesday to see if her mentation is better and to reexamine her. No use of NSAIDs secondary to her CKD. Consider Voltaren gel in the interim on the left knee. Intermittent heat and ice to the knees if she will tolerate. History of Present Illness Reason for Consultation: Left knee pain Attending Physician: Keya Adorno MD History of Present Illness Patient is a 68-year-old white female who was admitted several days ago with past medical history of chronic respiratory failure due to probable interstitial lung disease, on chronic O2 at 4 L, ELISSA on CPAP, chronic diastolic heart failure, PVD, HTN, hyperlipidemia, insulin-requiring DM, CKD with baseline creatinine ~1.6, prior DVT/PE, s/p IVC filter placement and on Eliquis, hx HIT, hypothyroidism, fibromyalgia, RLS and depression who presents to the ED today after a fall at home. Currently the patient is febrile and is very somnolent ; she answers some questions appropriately but cannot really stay awake during the interview. She is not a very good historian at this time. Most of history is taken from the chart. Patient apparently was having home health come to her house on a regular basis with physical therapy attending as well. Patient was progressing well however after several days she was having increased pain in both knees and was having some difficulty ambulating. She has been using a walker for ambulation at home. Apparently she was going to feed her cats and doing so she ended up feeling like her legs gave out from under her and she fell to the floor. She was thusly admitted. We have been asked to see her for her left knee pain. Allergies Allergy/AdvReac Type Severity Reaction Status Date / Time morphine Allergy Severe Swelling, Verified 11/20/23 10:52 "Violent reaction- almost " dapagliflozin [From Farxiga] Allergy Intermediate Yeast Verified 11/20/23 10:52 infections tetanus toxoid, adsorbed Allergy Intermediate Passed Verified 11/20/23 10:52 out, "got sick" as child bupropion [From Wellbutrin] AdvReac Intermediate Recurrent Verified 11/20/23 10:52 falls as per patient codeine AdvReac Intermediate Hallucinati Verified 11/20/23 10:52 ons empagliflozin AdvReac Intermediate Yeast Verified 11/20/23 10:52 [From Jardiance] infections heparin AdvReac Intermediate HIT, Verified 11/20/23 10:52 "Fluid in lungs" hydrocodone [From Vicodin] AdvReac Intermediate Drowsy Verified 11/20/23 10:52 Home Medications Medication Instructions Recorded Confirmed Type aspirin 81 mg tablet,delayed 81 mg PO DAILY 09/20/23 11/20/23 History release atorvastatin 20 mg tablet 20 mg PO DAILY 09/20/23 11/20/23 History baclofen 10 mg tablet 10 mg PO BID PRN Muscle Spasm 09/20/23 11/20/23 History clonazepam 0.5 mg tablet 0.5 mg PO BID 09/20/23 11/20/23 History clopidogrel 75 mg tablet 75 mg PO DAILY 09/20/23 11/20/23 History duloxetine 60 mg capsule,delayed See Rx Instructions .Route .COMPLEX 09/20/23 11/20/23 History release furosemide 40 mg tablet 60 mg PO BID 09/20/23 11/20/23 History gabapentin 300 mg capsule 600 mg PO TID 09/20/23 11/20/23 History insulin aspart U-100 100 unit/mL 8 unit subcut UD 09/20/23 11/20/23 History (3 mL) subcutaneous pen (Novolog FlexPen U-100 Insulin aspart) insulin degludec 100 unit/mL (3 50 unit subcut HS 09/20/23 11/20/23 History mL) subcutaneous pen (Tresiba FlexTouch U-100 insulin) levothyroxine 200 mcg tablet See Rx Instructions .Route .COMPLEX 09/20/23 11/20/23 History levothyroxine 50 mcg tablet See Rx Instructions .Route .COMPLEX 09/20/23 11/20/23 History magnesium oxide 400 mg (241.3 mg 400 mg PO BID 09/20/23 11/20/23 History magnesium) tablet omeprazole 20 mg capsule,delayed 20 mg PO DAILY 09/20/23 11/20/23 History release oxycodone 5 mg tablet 5 mg PO Q6H PRN Pain 09/20/23 11/20/23 History potassium chloride 20 mEq 20 meq PO BID 09/20/23 11/20/23 History tablet,extended release(part/cryst) ropinirole 2 mg tablet 2 mg PO HS 09/20/23 11/20/23 History sennosides 8.6 mg-docusate sodium 1 tab PO BID 09/20/23 11/20/23 History 50 mg tablet (Senna-Time S) tirzepatide 5 mg/0.5 mL 5 mg subcut WK 09/20/23 11/20/23 History subcutaneous pen injector (Kevan) tramadol 50 mg tablet 50 mg PO TID PRN Pain 09/20/23 11/20/23 History trazodone 100 mg tablet 100 mg PO HS 09/20/23 11/20/23 History Vit D3 1000iu 200+50 Softge 1 tab PO QAM 10/24/23 11/20/23 History apixaban 2.5 mg tablet (Eliquis) 2.5 mg PO BID 10/24/23 11/20/23 History dicyclomine 20 mg tablet 20 mg PO QID PRN abdominal cramping 10/24/23 11/20/23 History duloxetine 30 mg capsule,delayed See Rx Instructions .Route .COMPLEX 10/24/23 11/20/23 History release triamcinolone acetonide 0.5 % 1 applic topical BID PRN chest rash 10/24/23 11/20/23 History topical cream Patient History Medical History (Updated 11/26/23 @ 09:20 by David Gamboa MD) Septic shock Sepsis secondary to UTI Transient hypotension UTI due to Klebsiella species Hypotension Acute pyelonephritis Hypomagnesemia Mitral valve stenosis Echo 06/2023: Borderline mild mitral stenosis secondary to severe mitral annular calcification Chronic hypoxemic respiratory failure Cataract, bilateral Lumbago with sciatica Lower extremity pain, bilateral Neuropathy feet On home oxygen therapy 3L continuous CHF (congestive heart failure) Follows with Dr. Woodall Subclavian artery stenosis Cerebrovascular duplex study 06/2023: Retrograde flow in the right vertebral artery. 50-69% proximal right subclavian artery stenosis. Antegrade flow in the left vertebral artery. Normal flow in the left subclavian artery. Carotid stenosis, right Cerebrovascular duplex 07/11/23: 80-99% R ICA stenosis. No hemodynamically significant stenosis in the LICA. Diabetes mellitus, type II CKD (chronic kidney disease), stage III Follows with [facility] ELISSA on CPAP CPAP + 3L O2 (O2 is continuous) HTN (hypertension) HLD (hyperlipidemia) Morbid obesity HIT (heparin-induced thrombocytopenia) 2008, [facility] then life flight to [facility] > "resolved" Depression with anxiety Hypothyroidism History of pulmonary embolism 2008 s/p zoraida filter GERD (gastroesophageal reflux disease) RLS (restless legs syndrome) History of DVT (deep vein thrombosis) 2008 (during ICU [facility] admission/PNA) Presence of IVC filter 2008 Fibromyalgia Surgical History Family history of reaction to anesthesia Brother/niece- PONV Brother- "wakes up violent" History of colostomy reversal History of tooth extraction History of arthroscopy left ankle History of incisional hernia repair Nausea and vomiting after administration of anesthetic agent History of colonoscopy History of cholecystectomy History of total right knee replacement History of tracheostomy 06/2009 (per [facility] records), secondary to acute respiratory failure in setting of PNA, reversed a few months later History of thyroidectomy, total 2010 History of colon resection secondary to R colon perforation, resected treated with colostomy and eventual reversal in 2008, Dr. 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 Currently she is sitting up in bed and is very somnolent. She does answer some questions appropriately but with ongoing fevers and illness she is feeding off to sleep during the conversation easily. She currently states she does not feel well during the time she is awake. On examination of her knees this morning, she has a well-healed incision over her right knee from previous TKA done by Dr. Carrillo. The knee is not erythematous. There is no overt effusion noted. Patient is able to follow some commands. She is able to do a straight leg raise somewhat with the right lower extremity and the left. This is weakened and she states she feels weak in general. Quadriceps muscles are firing and I can feel no discrepancies around the superior pole of the patella. Medial and lateral collateral ligaments feel stable of the right knee. She does complain of some medial joint line pain during exam. I cannot reproduce the pain on palpation of the medial collateral. The pain appears to be over the joint line at this time. Flexion to approximately 85 degrees with the right knee with full extension. I cannot appreciate any anterior posterior shift with the right knee. Left knee appears the same as size. No overt swelling. Tender on palpation over the medial joint line. With the same pain reproduced testing collateral ligaments of which appear stable. No obvious anterior posterior shifting. She has approximately 40 degrees of flexion in the left knee before having moderate pain. She does have full extension. With her fever of 38, her whole body does feel warm to the touch. Knees feel warm to the touch equally. Calves are soft and nontender. Patient denies gross sensory loss or motor loss but states she feels weak. Results & Data Vital Signs (Past 12 Hours) Vital Signs Temp Pulse Pulse Pulse Resp BP BP 11/25/23 09:44 113 H 11/25/23 07:50 38.0 C H 120 H 18 132/56 L 11/25/23 07:11 11/25/23 05:33 37.2 C 112 H 20 118/55 L 11/25/23 04:15 11/25/23 04:09 37.3 C 112 H 138/64 11/25/23 03:47 38.7 C H 113 H 24 130/62 11/25/23 03:17 118 H 22 132/72 11/25/23 02:56 38 C H 117 H 138/79 11/25/23 02:45 117 H 11/25/23 02:19 124 H 11/25/23 02:18 67/47 L 11/25/23 02:04 39.2 C H 117 H 99/35 L 11/24/23 22:50 Pulse Ox O2 Del Method O2 Flow Rate 11/25/23 09:44 11/25/23 07:50 95 Nasal Cannula 4 11/25/23 07:11 Nasal Cannula 5 11/25/23 05:33 92 Nasal Cannula 5 11/25/23 04:15 Nasal Cannula 4 11/25/23 04:09 11/25/23 03:47 93 Nasal Cannula 4 11/25/23 03:17 95 Nasal Cannula 4 11/25/23 02:56 94 Nasal Cannula 4 11/25/23 02:45 11/25/23 02:19 11/25/23 02:18 11/25/23 02:04 97 Nasal Cannula 4 11/24/23 22:50 Nasal Cannula 4 Laboratory Results Laboratory Results WBC 12.60 K/ul (4.8-10.8) H 11/25/23 05:19 RBC 3.96 M/uL (4.20-5.40) L 11/25/23 05:19 Hgb 10.7 g/dl (12.0-16.0) L 11/25/23 05:19 POC Hgb 11.6 g/dl (12.0-16.0) L 11/25/23 03:04 Hct 35.5 % (37.0-47.0) L 11/25/23 05:19 POC Hct 34 % (37-47) L 11/25/23 03:04 MCV 89.6 fL (80.0-100.0) 11/25/23 05:19 MCH 27.0 pg (25.0-34.0) 11/25/23 05:19 MCHC 30.1 g/dL (32.0-36.0) L 11/25/23 05:19 RDW Std Deviation 50.7 fL (36.4-46.3) H 11/25/23 05:19 RDW Coeff of Adolfo 15.4 % (11.5-14.5) H 11/25/23 05:19 Plt Count 278 K/uL (130-400) 11/25/23 05:19 MPV 10.1 fL (9.4-12.4) 11/25/23 05:19 Immature Gran % (Auto) 0.6 % 11/25/23 05:19 Neut % (Auto) 90.9 % 11/25/23 05:19 Lymph % (Auto) 4.4 % 11/25/23 05:19 Noble % (Auto) 2.5 % 11/25/23 05:19 Eos % (Auto) 1.3 % 11/25/23 05:19 Baso % (Auto) 0.3 % 11/25/23 05:19 Neut # (Auto) 11.46 K/uL (1.40-6.50) H 11/25/23 05:19 Lymph # (Auto) 0.55 K/uL (1.20-3.40) L 11/25/23 05:19 Noble # (Auto) 0.32 K/uL (0.11-0.59) 11/25/23 05:19 Eos # (Auto) 0.16 K/uL (0.00-0.50) 11/25/23 05:19 Baso # (Auto) 0.04 K/uL (0.00-0.20) 11/25/23 05:19 Immature Gran # (Auto) 0.07 K/uL (0.01-0.20) 11/25/23 05:19 ESR 67 mm/hr (0-30) H 11/25/23 05:19 PT 11.2 Seconds (9.0-12.0) 11/20/23 09:00 INR 1.0 (0.9-1.1) 11/20/23 09:00 POC pH 7.45 (7.35-7.45) 11/25/23 03:04 POC pCO2 41 mmHg (35-46) 11/25/23 03:04 POC pO2 71 mmHg (80-95) L 11/25/23 03:04 POC HCO3 28 adam/L (19-24) H 11/25/23 03:04 POC Total CO2 30 mmol/L (24-31) 11/25/23 03:04 POC Base Excess 4.0 adam/L (-9-1.8) H 11/25/23 03:04 POC ABG O2 Sat 95.0 % (90-95) 11/25/23 03:04 POC Sodium 134 mmol/L (135-144) L 11/25/23 03:04 Sodium 135 mmol/L (136-145) L 11/25/23 05:19 POC Potassium 3.8 mmol/L (3.3-5.0) 11/25/23 03:04 Potassium 3.9 mmol/L (3.5-5.1) 11/25/23 05:19 Chloride 99 mmol/L (98-107) 11/25/23 05:19 Carbon Dioxide 30 mmol/L (21-32) 11/25/23 05:19 Anion Gap 6 (3-11) 11/25/23 05:19 BUN 31 mg/dl (6-23) H 11/25/23 05:19 Creatinine 1.87 mg/dl (0.6-1.2) H 11/25/23 05:19 Est Cr Clr Drug Dosing 38.5 ml/min 11/25/23 05:19 Est GFR ( Amer) 31.5 ml/min 11/25/23 05:19 Est GFR (Non-Af Amer) 27.1 ml/min 11/25/23 05:19 BUN/Creatinine Ratio 16.6 (10-20) 11/25/23 05:19 Glucose 162 mg/dl (70-99(Fasting)) H 11/25/23 05:19 POC Glucose 146 mg/dl (70-99) H 11/25/23 05:19 Estimat Average Glucose 169 mg/dl 11/20/23 09:00 Hemoglobin A1c 7.5 % (4.5-5.6) H 11/20/23 09:00 Lactate 1.5 mmol/L (0.4-2.0) 11/25/23 05:19 Calcium 8.4 mg/dl (8.6-10.3) L 11/25/23 05:19 Magnesium 1.5 mg/dl (1.7-2.4) L 11/25/23 05:19 Total Bilirubin 0.4 mg/dl (0.2-1.0) 11/24/23 22:25 AST 11 U/L (13-39) L 11/24/23 22:25 ALT 9 U/L (7-52) 11/24/23 22:25 Alkaline Phosphatase 101 U/L (34-104) 11/24/23 22:25 Troponin I High Sens 10.3 pg/ml (0-14) 11/25/23 05:19 C-Reactive Protein 6.34 mg/dl (0-0.5) H 11/25/23 05:19 Total Protein 8.1 gm/dl (6.0-8.3) 11/24/23 22:25 Albumin 4.0 gm/dl (3.4-5.0) 11/24/23 22:25 Globulin 4.1 gm/dl (2.5-4.0) H 11/24/23 22:25 Albumin/Globulin Ratio 1.0 (0.9-2) 11/24/23 22:25 Lipase 11 U/L (11-82) 11/25/23 05:19 Urine Color Bruner 11/25/23 00:13 Urine Appearance Turbid (Clear) A 11/25/23 00:13 Urine pH 7.0 (4.5-7.5) 11/25/23 00:13 Ur Specific [place] 1.011 (1.000-1.030) 11/25/23 00:13 Urine Protein 3+ (Negative) H 11/25/23 00:13 Urine Glucose (UA) Negative (Negative) 11/25/23 00:13 Urine Ketones Negative (Negative) 11/25/23 00:13 Urine Blood 3+ (Negative) H 11/25/23 00:13 Urine Nitrite Negative (Negative) 11/25/23 00:13 Urine Bilirubin Negative (Negative) 11/25/23 00:13 Urine Urobilinogen Negative (Negative) 11/25/23 00:13 Ur Leukocyte Esterase 3+ (Negative) H 11/25/23 00:13 Urine WBC (Auto) >30 /hpf (0-5) H 11/25/23 00:13 Urine RBC (Auto) >30 /hpf (0-4) H 11/25/23 00:13 U Hyaline Cast (Auto) 1-5 /lpf (0-5) 11/25/23 00:13 U Epithel Cells (Auto) 10-20 /lpf (0-5) H 11/25/23 00:13 Urine Bacteria (Auto) Negative (Negative) 11/25/23 00:13 Urine Yeast Not Reportable 11/25/23 00:13 Impressions Hip/Pelvis X-Ray 11/21/23 19:11 XR hip LT 2V w pelvis CLINICAL HISTORY: Left hip pain. Evaluate for fracture. COMPARISON: Pelvis and right hip radiographs June 09, 2023. CT of the abdomen and pelvis October 24, 2023. FINDINGS: Sacroiliac joints and symphysis pubis are intact. There is no fracture within the pelvis or hips. Hip joint spaces are preserved. There is no evidence for avascular necrosis of the femoral heads. No osseous lesions are identified. Left hip joint space is preserved. There is mild osteophytosis of the left hip. IMPRESSION: 1. No fractures within the pelvis or hips. 2. Mild left hip osteoarthritis. ACT 112: Negative or not required by law. Electronically signed by: David Lugo M.D. 11/22/2023 7:38 AM Venous Doppler Study 11/25/23 07:38 RIGHT LOWER EXTREMITY VENOUS DOPPLER HISTORY: Right leg edema erythema/pain COMPARISON STUDY: None. FINDINGS: There is normal compressibility, flow, and augmentation within the right lower extremity deep venous system. IMPRESSION: No DVT within the right lower extremity ACT 112: Negative or not required by law. Electronically signed by: Ernesto France M.D. 11/25/2023 9:00 AM XR knee RT 1 or 2V routine, XR knee LT 1 or 2V routine CLINICAL HISTORY: fall. Bilateral knee pain. COMPARISON STUDY: Left knee 09/28/2023. Right knee 10/24/2020. FINDINGS: There is a right total knee arthroplasty. The hardware is intact. Small bilateral knee effusions. Mild anterior soft tissue swelling. Tricompartm ental osteoarthritis within the left knee most pronounced at the medial compartment. No acute fracture or dislocation within the right or left knee. IMPRESSION: 1. No acute fractures within the right or left knee. 2. Small bilateral knee effusions. ACT 112: Negative or not required by law. Electronically signed by: Ernesto France M.D. 11/20/2023 9:51 AM Knee X-Ray 11/25/23 07:58 XR knee RT 1 or 2V routine CLINICAL HISTORY: assess effusion/septic joint?. Right knee pain. COMPARISON STUDY: Right knee 11/20/2023. FINDINGS: There is again noted a right total knee arthroplasty. The hardware is intact. No fracture or dislocation. No abnormal periprosthetic lucency. No significant soft tissue swelling. No knee effusion. IMPRESSION: 1. Right total knee arthroplasty. The hardware appears intact. 2. No knee effusion. ACT 112: Negative or not required by law. Electronically signed by: Ernesto France M.D. 11/25/2023 9:06 AM
[2023-11-25 10:47] LABS: Adenovirus PCR Not Detected (NotDetected); Bordetella parapertussis PCR Not Detected (NotDetected); Bordetella pertussis PCR Not Detected (NotDetected); Chlamydia pneumoniae PCR Not Detected (NotDetected); Coronavirus 229E PCR Not Detected (NotDetected); Coronavirus CoV-2 (COVID19)PCR Not Detected (NotDetected); Coronavirus HKU1 PCR Not Detected (NotDetected); Coronavirus NL63 PCR Not Detected (NotDetected); Coronavirus OC43PCR Not Detected (NotDetected); Human Metapneumovirus PCR Not Detected (NotDetected); Influenza A PCR Not Detected (NotDetected); Influenza B PCR Not Detected (NotDetected); Mycoplasma pneumoniae PCR Not Detected (NotDetected); Parainfluenza Virus 1 PCR Not Detected (NotDetected); Parainfluenza Virus 2 PCR Not Detected (NotDetected); Parainfluenza Virus 3 PCR Not Detected (NotDetected); Parainfluenza Virus 4 PCR Not Detected (NotDetected); Respiratory Syncytial VirusPCR Not Detected (NotDetected); Rhinovirus/Enterovirus PCR Not Detected (NotDetected)
--- NOTE | 2023-11-25 12:35 | Anesthesiology Consultation ---
Date of Service November 25, 2023 History Surgery Operation Date: 11/25/23 11:45 Proposed Procedures p Cystoscopy, Retrograde Pyelogram, Right Ureteral Stent Placement - Al Arriaga MD Height/Weight Height: 5 ft 5 in Weight: 126 kg Allergies Allergy/AdvReac Type Severity Reaction Status Date / Time morphine Allergy Severe Swelling, Verified 11/20/23 10:52 "Violent reaction- almost " dapagliflozin [From Farxiga] Allergy Intermediate Yeast Verified 11/20/23 10:52 infections tetanus toxoid, adsorbed Allergy Intermediate Passed Verified 11/20/23 10:52 out, "got sick" as child bupropion [From Wellbutrin] AdvReac Intermediate Recurrent Verified 11/20/23 10:52 falls as per patient codeine AdvReac Intermediate Hallucinati Verified 11/20/23 10:52 ons empagliflozin AdvReac Intermediate Yeast Verified 11/20/23 10:52 [From Jardiance] infections heparin AdvReac Intermediate HIT, Verified 11/20/23 10:52 "Fluid in lungs" hydrocodone [From Vicodin] AdvReac Intermediate Drowsy Verified 11/20/23 10:52 Medications Home Medications Medication Instructions Recorded Confirmed Last Taken aspirin 81 mg tablet,delayed 81 mg PO DAILY 09/20/23 11/20/23 11/19/23 release atorvastatin 20 mg tablet 20 mg PO DAILY 09/20/23 11/20/23 11/19/23 baclofen 10 mg tablet 10 mg PO BID PRN Muscle Spasm 09/20/23 11/20/23 Unknown clonazepam 0.5 mg tablet 0.5 mg PO BID 09/20/23 11/20/23 11/19/23 clopidogrel 75 mg tablet 75 mg PO DAILY 09/20/23 11/20/23 11/19/23 duloxetine 60 mg capsule,delayed See Rx Instructions .Route .COMPLEX 09/20/23 11/20/23 11/19/23 release furosemide 40 mg tablet 60 mg PO BID 09/20/23 11/20/23 11/19/23 gabapentin 300 mg capsule 600 mg PO TID 09/20/23 11/20/23 11/19/23 insulin aspart U-100 100 unit/mL 8 unit subcut UD 09/20/23 11/20/23 11/19/23 (3 mL) subcutaneous pen (Novolog FlexPen U-100 Insulin aspart) insulin degludec 100 unit/mL (3 50 unit subcut HS 09/20/23 11/20/23 11/19/23 mL) subcutaneous pen (Tresiba FlexTouch U-100 insulin) levothyroxine 200 mcg tablet See Rx Instructions .Route .COMPLEX 09/20/23 11/20/23 11/19/23 levothyroxine 50 mcg tablet See Rx Instructions .Route .COMPLEX 09/20/23 11/20/23 11/19/23 magnesium oxide 400 mg (241.3 mg 400 mg PO BID 09/20/23 11/20/23 11/19/23 magnesium) tablet omeprazole 20 mg capsule,delayed 20 mg PO DAILY 09/20/23 11/20/23 11/19/23 release oxycodone 5 mg tablet 5 mg PO Q6H PRN Pain 09/20/23 11/20/23 Unknown potassium chloride 20 mEq 20 meq PO BID 09/20/23 11/20/23 11/19/23 tablet,extended release(part/cryst) ropinirole 2 mg tablet 2 mg PO HS 09/20/23 11/20/23 11/19/23 sennosides 8.6 mg-docusate sodium 1 tab PO BID 09/20/23 11/20/23 11/19/23 50 mg tablet (Senna-Time S) tirzepatide 5 mg/0.5 mL 5 mg subcut WK 09/20/23 11/20/23 11/16/23 subcutaneous pen injector (Kevan) tramadol 50 mg tablet 50 mg PO TID PRN Pain 09/20/23 11/20/23 Unknown trazodone 100 mg tablet 100 mg PO HS 09/20/23 11/20/23 11/19/23 Vit D3 1000iu 200+50 Softge 1 tab PO QAM 10/24/23 11/20/23 11/19/23 apixaban 2.5 mg tablet (Eliquis) 2.5 mg PO BID 10/24/23 11/20/23 11/19/23 dicyclomine 20 mg tablet 20 mg PO QID PRN abdominal cramping 10/24/23 11/20/23 Unknown duloxetine 30 mg capsule,delayed See Rx Instructions .Route .COMPLEX 10/24/23 11/20/23 11/19/23 release triamcinolone acetonide 0.5 % 1 applic topical BID PRN chest rash 10/24/23 11/20/23 Unknown topical cream Active Medications Generic Name Dose Route Start Last Admin Trade Name Freq PRN Reason Stop Dose Admin Acetaminophen 650 mg 11/21/23 00:54 11/25/23 08:11 Acetaminophen 325 Mg Tab PO 12/21/23 00:53 650 mg QID PRN Administration pain/fever Apixaban 2.5 mg 11/20/23 21:00 11/25/23 09:29 Apixaban 2.5 Mg Tab PO 12/20/23 20:59 2.5 mg BID ROBERT Administration Aspirin 81 mg 11/21/23 09:00 11/25/23 09:29 Aspirin 81 Mg Ectab PO 12/21/23 08:59 81 mg DAILY ROBERT Administration Atorvastatin Calcium 20 mg 11/21/23 09:00 11/25/23 09:29 Atorvastatin 20 Mg Tab PO 12/21/23 08:59 20 mg DAILY ROBERT Administration Baclofen 10 mg 11/20/23 16:25 11/20/23 21:10 Baclofen 10 Mg Tab PO 12/20/23 16:24 10 mg BID PRN Administration Muscle Spasm Clonazepam 0.5 mg 11/20/23 21:00 11/25/23 08:12 Clonazepam 0.5 Mg Tab PO 12/20/23 20:59 0.5 mg BID ROBERT Administration Clopidogrel Bisulfate 75 mg 11/21/23 09:00 11/25/23 09:29 Clopidogrel Bisulfate 75 Mg Tab PO 12/21/23 08:59 75 mg DAILY ROBERT Administration Diclofenac Sodium 2 gm 11/23/23 13:45 11/25/23 11:15 Diclofenac Sod 1% Gel 100 Gm Tube EXT 12/23/23 13:44 2 gm Q6 ROBERT Administration Protocol Dicyclomine HCl 20 mg 11/20/23 16:25 11/21/23 11:59 Dicyclomine Hcl 20 Mg Tab PO 12/20/23 16:24 20 mg QID PRN Administration abdominal cramping Duloxetine HCl 60 mg 11/20/23 17:00 11/25/23 09:28 Duloxetine Hcl 60 Mg Cap PO 12/20/23 16:59 60 mg DAILY ROBERT Administration Duloxetine HCl 30 mg 11/20/23 17:00 11/25/23 09:29 Duloxetine Hcl 30 Mg Cap PO 12/20/23 16:59 30 mg DAILY ROBERT Administration Gabapentin 600 mg 11/20/23 21:00 11/25/23 09:28 Gabapentin 600 Mg Tab PO 12/20/23 20:59 600 mg TID ROBERT Administration Piperacillin Sod/Tazobactam 100 mls @ 25 mls/hr 11/25/23 06:00 11/25/23 09:25 Sod 4.5 gm/ Dextrose IV 12/05/23 05:59 Infused Q[facility] Infusion Protocol Sodium Chloride 1,000 mls @ 50 mls/hr 11/25/23 00:30 11/25/23 07:17 Nss IV 12/25/23 00:29 50 mls/hr .Q20H ROBERT Infusion Insulin Aspart 0 units 11/25/23 00:00 11/25/23 12:23 Insulin Aspart Per Unit Charge SC 12/25/23 00:00 Not Given Q6 ROBERT Insulin Glargine 0 units 11/24/23 21:00 11/25/23 08:11 Lantus Per Unit Charge SQ 12/20/23 20:59 30 units BID ROBERT Administration Protocol Levothyroxine Sodium 50 mcg 11/20/23 17:00 11/25/23 05:31 Levothyroxine Sodium 50 Mcg Tablet PO 12/20/23 16:59 50 mcg DAILYBB ROBERT Administration Levothyroxine Sodium 200 mcg 11/20/23 17:00 11/25/23 05:31 Levothyroxine Sodium 200 Mcg Tablet PO 12/20/23 16:59 200 mcg DAILYBB ROBERT Administration Magnesium Hydroxide 30 ml 11/22/23 17:59 11/23/23 05:25 Magnesium Hydroxide Susp 30 Ml Udc PO 12/22/23 17:58 30 ml Q6H PRN Administration Constipation Magnesium Oxide 400 mg 11/20/23 21:00 11/25/23 09:28 Magnesium Oxide 400 Mg Tab PO 12/20/23 20:59 400 mg BID ROBERT Administration Ondansetron HCl 4 mg 11/24/23 20:39 11/24/23 21:21 Ondansetron 4 Mg Od Tab PO 12/24/23 20:38 4 mg Q8H PRN Administration Nausea And Vomiting Pantoprazole Sodium 40 mg 11/21/23 09:00 03/01/24 09:28 Pantoprazole 40 Mg Tab PO 12/21/23 08:59 40 mg DAILY ROBERT Administration Protocol Ropinirole HCl 2 mg 11/20/23 21:00 11/24/23 22:53 Ropinirole Hcl 2 Mg Tablet PO 12/20/23 20:59 2 mg HS ROBERT Administration Senna/Docusate Sodium 1 tab 11/20/23 21:00 11/25/23 09:29 Docusate Sodium/Senna 50/8.6mg Tab PO 12/20/23 20:59 1 tab BID ROBERT Administration Sodium Chloride 2 sprays 11/21/23 00:13 11/21/23 00:58 Sodium Chloride 0.65% Na Soln 45 Ml ([place]) NA 12/21/23 00:12 2 sprays TID PRN Administration Nasal Congestion Tramadol HCl 50 mg 11/20/23 16:25 11/24/23 20:08 Tramadol Hcl 50 Mg Tablet PO 12/20/23 16:24 50 mg TID PRN Administration Pain Trazodone HCl 100 mg 11/20/23 21:00 11/24/23 22:54 Trazodone Hcl 100 Mg Tab PO 12/20/23 20:59 100 mg HS ROBERT Administration Past Medical History Medical History UTI due to Klebsiella species Hypotension Acute pyelonephritis Hypomagnesemia Mitral valve stenosis Echo 06/2023: Borderline mild mitral stenosis secondary to severe mitral annular calcification Chronic hypoxemic respiratory failure Cataract, bilateral Lumbago with sciatica Lower extremity pain, bilateral Neuropathy feet On home oxygen therapy 3L continuous CHF (congestive heart failure) Follows with Dr. Woodall Subclavian artery stenosis Cerebrovascular duplex study 06/2023: Retrograde flow in the right vertebral artery. 50-69% proximal right subclavian artery stenosis. Antegrade flow in the left vertebral artery. Normal flow in the left subclavian artery. Carotid stenosis, right Cerebrovascular duplex 07/11/23: 80-99% R ICA stenosis. No hemodynamically significant stenosis in the LICA. Diabetes mellitus, type II CKD (chronic kidney disease), stage III Follows with [facility] on CPAP CPAP + 3L O2 (O2 is continuous) HTN (hypertension) HLD (hyperlipidemia) Morbid obesity HIT (heparin-induced thrombocytopenia) 2008, [facility] then life flight to [place] > "resolved" Depression with anxiety Hypothyroidism History of pulmonary embolism 2008 s/p zoraida filter GERD (gastroesophageal reflux disease) RLS (restless legs syndrome) History of DVT (deep vein thrombosis) 2008 (during ICU [place] admission/PNA) Presence of IVC filter 2008 Fibromyalgia Past Family History Family History Father , age 74 Lung cancer Mother , age 45 Cirrhosis Past Surgical History Surgical History Family history of reaction to anesthesia Brother/niece- PONV Brother- "wakes up violent" History of colostomy reversal History of tooth extraction History of arthroscopy left ankle History of incisional hernia repair Nausea and vomiting after administration of anesthetic agent History of colonoscopy History of cholecystectomy History of total right knee replacement History of tracheostomy 06/2009 (per [facility] records), secondary to acute respiratory failure in setting of PNA, reversed a few months later History of thyroidectomy, total 2010 History of colon resection secondary to R colon perforation, resected treated with colostomy and eventual reversal in 2008, Dr. Lrema Social History Smoking Status: Former smoker tobacco type: cigarettes Smoking cigarettes per day: 1997 Do You Dip or Chew Tobacco: No Hx Alcohol Use: No Alcohol type: wine alcohol intake frequency: holidays/special occasions only Hx Substance Use: No substance use type: does not use Physical Exam Vital Signs Last Vital Signs Temp 37.2 C 11/25/23 10:38 Pulse 126 H 11/25/23 10:38 Resp 18 11/25/23 10:38 BP 118/51 L 11/25/23 10:38 Pulse Ox 94 11/25/23 10:38 O2 Del Method Nasal Cannula 11/25/23 10:38 O2 Flow Rate 6 11/25/23 10:38 Testing Laboratory Results 11/25/23 05:19 11/25/23 05:19 PT 11.2 Seconds (9.0-12.0) 11/20/23 09:00 INR 1.0 (0.9-1.1) 11/20/23 09:00 Hemoglobin A1c 7.5 % (4.5-5.6) H 11/20/23 09:00 Urine Color [place] 11/25/23 00:13 Urine Appearance Turbid (Clear) A 11/25/23 00:13 Urine pH 7.0 (4.5-7.5) 11/25/23 00:13 Ur Specific [place] 1.011 (1.000-1.030) 11/25/23 00:13 Urine Protein 3+ (Negative) H 11/25/23 00:13 Urine Glucose (UA) Negative (Negative) 11/25/23 00:13 Urine Ketones Negative (Negative) 11/25/23 00:13 Urine Nitrite Negative (Negative) 11/25/23 00:13 Ur Leukocyte Esterase 3+ (Negative) H 11/25/23 00:13 Urine WBC (Auto) >30 /hpf (0-5) H 11/25/23 00:13 Urine RBC (Auto) >30 /hpf (0-4) H 11/25/23 00:13 U Hyaline Cast (Auto) 1-5 /lpf (0-5) 11/25/23 00:13 U Epithel Cells (Auto) 10-20 /lpf (0-5) H 11/25/23 00:13 Urine Bacteria (Auto) Negative (Negative) 11/25/23 00:13 11/25/23 11/25/23 12:09 05:19 POC Glucose 115 H 146 H
--- NOTE | 2023-11-25 12:52 | Electrocardiogram Report ---
Test Reason : Blood Pressure : / mmHG Vent. Rate : 113 BPM Atrial Rate : 113 BPM P-R Int : 164 ms QRS Dur : 078 ms QT Int : 324 ms P-R-T Axes : 033 013 054 degrees QTc Int : 444 ms Sinus tachycardia Low voltage QRS Borderline ECG When compared with ECG of 20-NOV-2023 09:03, No significant change was found Confirmed by Alvin Dyer ([id number]) on 11/25/2023 12:52:24 PM Referred By: REFERRED SELF Confirmed By:Alvin Dyer
[2023-11-25] MEDS ORDERED: fentaNYL citrate PF 100 MCG/2 ML VIAL ONE (13:20)
[2023-11-25] MEDS ORDERED: ONDANSETRON INJ 2 MG/ML 2 ML VIAL ONE (13:20)
[2023-11-25] MEDS ORDERED: LIDOCAINE 2% 2 ML VIAL/AMP(20MG/ML) INFIL ONE (13:20)
[2023-11-25] MEDS ORDERED: PROPOFOL IV EMULSION 10 MG/ML 20 ML VIAL IV ONE (13:20)
[2023-11-25] MEDS ORDERED: KETAMINE HCL 10MG/ML SYR ONE (13:26)
[2023-11-25] MEDS ORDERED: MIDAZOLAM HCL 1 MG/ML 2ML VIAL ONE (13:38)
[2023-11-25] MEDS ORDERED: ATROPINE SULFATE 0.1 MG/ML 10ML SYR IV PRN (13:39)
[2023-11-25] MEDS ORDERED: fentaNYL citrate PF 100 MCG/2 ML VIAL IV PRN (13:39)
[2023-11-25] MEDS ORDERED: ePHEDrine sulfate 50 MG/ML AMP IV PRN (13:39)
[2023-11-25] MEDS ORDERED: PROMETHAZINE HCL 6.25 MG in SODIUM CHLORIDE 0.9% 50 ML IV PRN (13:39)
--- NOTE | 2023-11-25 14:09 | Operative Report ---
PG Post Operative Report Pre & Post Diagnosis Operation Date: 11/25/23 11:45 Pre-Op Diagnosis: right hydronephrosis Post-Op Diagnosis: right hydronephrosis I identified the patient and participated in the time-out.: Yes Procedure Operation Date: 11/25/23 11:45 Actual Procedures p Cystoscopy, Retrograde Pyelogram, Right Ureteral Stent Placement(Right) - Al Arriaga MD Surgeon Al Arriaga MD [facility] Consultant None Estimated Blood Loss 0 Findings Consistent with Post-Op Diagnosis Specimens Urine from right kidney for culture Drains 16 Tajik Fernandez catheter per urethra 6 Tajik by 24 cm double-J ureteral stent in the right ureter Anesthesia Type MAC Complications none Disposition Accompanied Patient To Recovery: Yes Disposition: Recovery Room Indications This is a 68-year-old female previously followed by urology for 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 While in the hospital she developed fevers and chills as well as tachycardia. Urinalysis was concerning for possible infection. She is brought to the OR today for right ureteral stent placement for maximal source control. Description of Procedure The patient was identified in the holding area and informed consent was confirmed. She was marked on the right side, then was taken to the operating room where anesthesia was initiated. She was placed in the dorsal lithotomy position with all pressure points appropriately padded. She was prepped and draped in the usual sterile fashion and a preoperative timeout was performed. A well-lubricated cystoscope was inserted per urethra and panendoscopy was performed. The urethra was normal in appearance. The bladder was of normal size with ureteral orifices in orthotopic position. The urine in the bladder was somewhat turbid with a fair amount of sediment. The right ureteral orifice was identified and cannulated with a 5 Tajik open- ended catheter. A retrograde pyelogram was performed demonstrating hydronephrosis of the right kidney. A 0.038" ZIPwire was advanced to the level of the kidney under fluoroscopic guidance. Over the wire, a 6 Tajik x 24 centimeter double-J ureteral stent was advanced. When the wire was removed, the proximal curl was visualized in the kidney with x-ray, and the distal curl visualized in the bladder with the cystoscope. There was drainage of purulent urine from the kidney through the stent. A sample of this was collected and sent for culture. A 16 Taj[place] Fernandez catheter was inserted per urethra. 10 mL was used to inflate the balloon. The catheter was attached to gravity drainage. The patient was then awakened from anesthesia and was brought to the PACU in stable condition. I attest to the content of the Intraoperative Record and any orders documented therein. Any exceptions are noted below.
[2023-11-25] MEDS: DIATRIZOATE MEGLUMINE 30% 100ML VIAL INSTIL PRN (14:11)
--- NOTE | 2023-11-25 14:37 | Fluoroscopy Report ---
FL retrograde includes kub CLINICAL HISTORY: LT STENT PLACEMENT COMPARISON STUDY: None. FLUOROSCOPY TIME: 14 seconds FLUOROSCOPY IMAGES: 3 Ka,r: 9.9 mGy FINDINGS: Retrograde opacification of the right renal collecting system followed by placement of a ri ght ureteral stent. Only the proximal portion of the stent is identified but appears in good position . An IVC filter is noted. IMPRESSION: Fluoroscopic assistance as above. ACT 112: Negative or not required by law. Electronically signed by: Ernesto France M.D. 11/25/2023 2:35 PM
--- NOTE | 2023-11-25 14:47 | Pharmacy Report ---
Pharmacy PK ABX Note - Date of Service November 25, 2023 - Assessment and Plan Assessment * Ms Camp is a 68 year old F receiving vancomycin/Zosyn. * Pt reported abd pain last night. Labs showed leukocytosis, elevated lactate, positive UA. Pt was tachycardic, febrile. * Urology consult in place. Pt went to OR today for stent placement. * Blood, urine cultures pending Plan Vancomycin * Loading dose: 2250 mg IV x 1 * Maintenance dose: 1000 mg IV every 24 hours * Regimen is predicted to achieve target AUC/ABBEY of 400-600 mg/L.hr for several days. Will consider reducing dose in 2-3 days, as AUC may be supratherapeutic once vanc reaches steady-state. * Will evaluate a vanc level in 1-2 days if pt remains hospitalized and on vanc therapy. Pharmacy will continue to follow and will adjust dose/frequency as necessary. Thank you. Pharmacy has transitioned to AUC monitoring for vancomycin. AUC/ABBEY is the preferred PK/PD target and is associated with decreased risk of nephrotoxicity compared to traditional trough targets.
--- NOTE | 2023-11-25 15:09 | Anesthesiology Progress Note ---
Date of Service November 25, 2023 Anesthesia Post Procedure Vital Signs Vital Signs: Temp Pulse Pulse Pulse Resp BP BP 11/25/23 15:04 37.6 C H 117 H 22 95/57 L 11/25/23 14:45 120 H 22 100/55 L 11/25/23 14:35 118 H 22 101/50 L 11/25/23 14:25 37.3 C 117 H 24 104/48 L 11/25/23 14:15 120 H 22 118/54 L 11/25/23 14:05 37 C 120 H 22 154/50 H 11/25/23 12:43 36.9 C 117 H 28 H 125/57 L 11/25/23 10:38 37.2 C 126 H 18 118/51 L 11/25/23 09:44 113 H 11/25/23 08:52 37.1 C 11/25/23 07:50 38.0 C H 120 H 18 132/56 L 11/25/23 07:11 11/25/23 05:33 37.2 C 112 H 20 118/55 L 11/25/23 04:15 11/25/23 04:09 37.3 C 112 H 138/64 11/25/23 03:47 38.7 C H 113 H 24 130/62 11/25/23 03:17 118 H 22 132/72 11/25/23 02:56 38 C H 117 H 138/79 11/25/23 02:45 117 H 11/25/23 02:19 124 H 11/25/23 02:18 67/47 L 11/25/23 02:04 39.2 C H 117 H 99/35 L 11/24/23 22:50 11/24/23 20:35 36.5 C 93 H 18 137/83 Pulse Ox O2 Del Method O2 Flow Rate 11/25/23 15:04 91 Oxymask 8 11/25/23 14:45 91 Nasal Cannula 6 11/25/23 14:35 92 Oxymask 4 11/25/23 14:25 92 Oxymask 4 11/25/23 14:15 93 Oxymask 4 11/25/23 14:05 93 Oxymask 6 11/25/23 12:43 91 Nasal Cannula 6 11/25/23 10:38 94 Nasal Cannula 6 11/25/23 09:44 11/25/23 08:52 03/01/24 07:50 95 Nasal Cannula 4 11/25/23 07:11 Nasal Cannula 5 11/25/23 05:33 92 Nasal Cannula 5 11/25/23 04:15 Nasal Cannula 4 11/25/23 04:09 11/25/23 03:47 93 Nasal Cannula 4 11/25/23 03:17 95 Nasal Cannula 4 11/25/23 02:56 94 Nasal Cannula 4 11/25/23 02:45 11/25/23 02:19 11/25/23 02:18 11/25/23 02:04 97 Nasal Cannula 4 11/24/23 22:50 Nasal Cannula 4 11/24/23 20:35 100 Nasal Cannula 4 Pain Intensity Bilateral Knee: Pain Intensity: 4 Left Abdomen: Pain Intensity: 6 Right Flank: Pain Intensity: 2 Transfer of Care Handoff Completed per policy Notes Mental Status: alert / awake / arousable and participated in evaluation Nausea / Vomiting: adequately controlled Pain: adequately controlled Airway Patency, RR, SpO2: stable & adequate BP & HR: stable & adequate Hydration State: stable & adequate Anesthetic Complications: no major complications apparent and Pt Satisfied with anesthetic care
--- NOTE | 2023-11-25 16:43 | XRay Report ---
SINGLE VIEW CHEST CLINICAL HISTORY: Respiratory failure. FINDINGS: An AP, portable, supine chest radiograph is compared to study dated 10/24/2023. Correlation is made with chest CT dated 09/24/2021. The examination is degraded by portable technique and patient rotation. Surgical clips are noted in the lower neck. The heart is enlarged and noting atherosclero tic calcification of the thoracic aorta. Changes of chronic interstitial lung disease are similar to previous. There is increasing interstitial thickening as compared to previous. No lobar consolidation or large pleural effusion is identified. No pneumothorax is seen. The skeletal structures are osteop enic. The bony thorax is grossly intact. IMPRESSION: 1. Cardiomegaly and changes of chronic lung disease as above. 2. Interstitial thickening appears modestly increased from previous. This may be related to supine po sitioning. Correlate clinically for evidence of fluid overload/congestive change or possibly a mild p neumonitis. Radiographic follow-up is recommended. ACT 112: Negative or not required by law. Electronically signed by: Zachariah Borden M.D. 11/25/2023 4:41 PM
[2023-11-25] MEDS: SODIUM CHLORIDE 0.9% 1,000 ML IV ONE (16:56)
--- NOTE | 2023-11-25 17:16 | Hospitalist Progress Note ---
Date of Service November 25, 2023 Assessment & Plan (1) Ambulatory dysfunction: (2) Weakness: (3) Type 2 diabetes, uncontrolled, with neuropathy: (4) Chronic diastolic heart failure: (5) Chronic respiratory failure: (6) CKD (chronic kidney disease), stage III: (7) ELISSA on CPAP: (8) HTN (hypertension): Plan: Chronic, stable (9) Hypothyroidism: (10) Depression with anxiety: (11) History of pulmonary embolism: (12) Constipation: Plan This is a 68 y/o female with a history of chronic respiratory failure due to probable interstitial lung disease, on chronic O2 at 4 L, ELISSA on CPAP, chronic diastolic heart failure, PVD, HTN, hyperlipidemia, insulin-requiring DM, CKD with baseline creatinine ~1.6, prior DVT/PE, s/p IVC filter placement and on Eliquis, hx HIT, hypothyroidism, fibromyalgia, RLS and depression who presents to the ED today after a fall at home. Work-up in the ED was negative for acute injury, but pt reported severe pain in her knees when she attempted an ambulatory trial in the ED. She feels like she unsafe to return home on her own so she was referred for admission and possible rehab placement. Of note, it appears that she was originally supposed go to [facility] for rehab after her admission in late Sep (d/c on 10/28) but she declined this option as she had no one to take care of her cats. She is willing to consider possible rehab placement 11/24. Course complicated by abdominal/flank pain overnight, hypotension, and encephalopathy. CT abd pelvis with right hydronephrosis with UPJ obstruction. Urology consulted and stent placed with return of purulent urine. Suspect likely source of sepsis #Acute toxic metabolic encephalopathy 2/2 infection manage as follows delirium precautions NPO for now #Sepsis, likely secondary to acute on chronic UPJ obstruction #Right hydronephrosis s/p stent placement -CT scan with the same chronic findings as prior exams, however given clinical deterioration consulted urology -s/p stent placement 11/24 -notable hypotensive s/p procedure -Continue Vanc Zosyn -Follow cultures -1.25 L bolus with plans for IV 125cc/hr hydration -Cannot safely achieve 3L bolus 2/2 chronic comorbidities and resp failure, will monitor closely -NPO for now -Other infectious work up: knee less suspicious for infectious eitology at this time, likely above urologic source, ortho following #Acute on chronic respiratory failure, multifactorial #Chronic heart failure with preserved ejection fraction On 4 L O2 chronically Chronic, stable Patient now s/p stent placement, after procedure requiring CPAP Needing to push fluid, however, concern for volume overload, will need to likely diurese once sepsis resolves Wean o2 as able ABG ordered BiPAP now #Chronic, stable. Baseline creatinine around 1.6 Avoid nephrotoxic agents iso sepsis #Ambulatory dysfunction #Severe left knee osteoarthritis Ongoing bilateral knee pain, h/o R TKA by Dr. Carrillo years ago and following with [facility] for L knee OA with plans for possible future L TKA but process complicated by BMI and other comorbidities. Patient has been losing weight, due to re-evaluate possibility of TKA but interested in second opinion. Routine consult placed for [facility]. - Fall precautions - Pain control prn -Accepted to rehab, bed not available until early next week -Ortho following: consider lumbar imaging when patient stable #DMTII Chronic, pt reports sugars have been stable for her since being discharged SSI #Hypothyroidism Chronic, stable Continue levothyroxine #depression mood stable continue meds #Constipation bowel regimen #Prior PE IVC filter, continue eliquis Code Status: Full code DVT Prophylaxis: continue Eliquis, has IVC filter Disposition managing new sepsis as above Admission and Anticipated Discharge Date Admission Date: November 20, 2023 Subjective Patient evaluated at bedside before and after stent placement Appeared ill, toxic answered yes no questions in the am Endorsed pain along flank/epigastrum Physical Exam Constitutional: ill, appearing; not conversational like prior days Respiratory: rapid breathing Cardiovascular: tachcyardic Gastrointestinal (Abdomen): tenderness over flank/epigastrum Results & Data Results & Data Vital Signs (Past 12 Hours) Vital Signs Temp Pulse Pulse Resp BP BP Pulse Ox 11/25/23 16:51 37.7 C H 103 H 20 86/47 L 96 11/25/23 15:52 38.5 C H 116 H 21 103/50 L 97 11/25/23 15:36 115 H 26 H 95 11/25/23 15:26 37.5 C 116 H 21 89/50 L 92 11/25/23 15:04 37.6 C H 117 H 22 95/57 L 91 11/25/23 14:45 120 H 22 100/55 L 91 11/25/23 14:35 118 H 22 101/50 L 92 11/25/23 14:25 37.3 C 117 H 24 104/48 L 92 11/25/23 14:15 120 H 22 118/54 L 93 11/25/23 14:05 37 C 120 H 22 154/50 H 93 11/25/23 12:43 36.9 C 117 H 28 H 125/57 L 91 11/25/23 10:38 37.2 C 126 H 18 118/51 L 94 11/25/23 09:44 113 H 11/25/23 08:52 37.1 C 11/25/23 07:50 38.0 C H 120 H 18 132/56 L 95 11/25/23 07:11 11/25/23 05:33 37.2 C 112 H 20 118/55 L 92 O2 Del Method O2 Flow Rate FiO2 11/25/23 16:51 CPAP 8 50 11/25/23 15:52 CPAP 8 50 11/25/23 15:36 50 11/25/23 15:26 Oxymask 8 11/25/23 15:04 Oxymask 8 11/25/23 14:45 Nasal Cannula 6 11/25/23 14:35 Oxymask 4 11/25/23 14:25 Oxymask 4 11/25/23 14:15 Oxymask 4 11/25/23 14:05 Oxymask 6 11/25/23 12:43 Nasal Cannula 6 11/25/23 10:38 Nasal Cannula 6 11/25/23 09:44 11/25/23 08:52 11/25/23 07:50 Nasal Cannula 4 11/25/23 07:11 Nasal Cannula 5 11/25/23 05:33 Nasal Cannula 5 Laboratory Results Short CBC 11/24/23 11/25/23 Range/Units 22:25 05:19 WBC 15.54 H 12.60 H (4.8-10.8) K/ul Hgb 12.8 10.7 L (12.0-16.0) g/dl Hct 42.0 35.5 L (37.0-47.0) % Plt Count 298 278 (130-400) K/uL BMP 11/24/23 11/25/23 22:25 05:19 Sodium 137 135 L Potassium 4.0 3.9 Chloride 94 L 99 Carbon Dioxide 34 H 30 BUN 30 H 31 H Creatinine 1.92 H 1.87 H Glucose 219 H 162 H Calcium 9.7 8.4 L Liver Function 11/24/23 Range/Units 22:25 Total Bilirubin 0.4 (0.2-1.0) mg/dl AST 11 L (13-39) U/L ALT 9 (7-52) U/L Alkaline Phosphatase 101 (34-104) U/L Albumin 4.0 (3.4-5.0) gm/dl Urine 11/25/23 Range/Units 00:13 Urine Color [place] Urine Appearance Turbid A (Clear) Urine pH 7.0 (4.5-7.5) Ur Specific [place] 1.011 (1.000-1.030) Urine Protein 3+ H (Negative) Urine Glucose (UA) Negative (Negative) Medications Administered Home Medications Medication Instructions Recorded Confirmed Last Taken aspirin 81 mg tablet,delayed 81 mg PO DAILY 09/20/23 11/20/23 11/19/23 release atorvastatin 20 mg tablet 20 mg PO DAILY 09/20/23 11/20/23 11/19/23 baclofen 10 mg tablet 10 mg PO BID PRN Muscle Spasm 09/20/23 11/20/23 Unknown clonazepam 0.5 mg tablet 0.5 mg PO BID 09/20/23 11/20/23 11/19/23 clopidogrel 75 mg tablet 75 mg PO DAILY 09/20/23 11/20/23 11/19/23 duloxetine 60 mg capsule,delayed See Rx Instructions .Route .COMPLEX 09/20/23 11/20/23 11/19/23 release furosemide 40 mg tablet 60 mg PO BID 09/20/23 11/20/23 11/19/23 gabapentin 300 mg capsule 600 mg PO TID 09/20/23 11/20/23 11/19/23 insulin aspart U-100 100 unit/mL 8 unit subcut UD 09/20/23 11/20/23 11/19/23 (3 mL) subcutaneous pen (Novolog FlexPen U-100 Insulin aspart) insulin degludec 100 unit/mL (3 50 unit subcut HS 09/20/23 11/20/23 11/19/23 mL) subcutaneous pen (Tresiba FlexTouch U-100 insulin) levothyroxine 200 mcg tablet See Rx Instructions .Route .COMPLEX 09/20/23 11/20/23 11/19/23 levothyroxine 50 mcg tablet See Rx Instructions .Route .COMPLEX 09/20/23 11/20/23 11/19/23 magnesium oxide 400 mg (241.3 mg 400 mg PO BID 09/20/23 11/20/23 11/19/23 magnesium) tablet omeprazole 20 mg capsule,delayed 20 mg PO DAILY 09/20/23 11/20/23 11/19/23 release oxycodone 5 mg tablet 5 mg PO Q6H PRN Pain 09/20/23 11/20/23 Unknown potassium chloride 20 mEq 20 meq PO BID 09/20/23 11/20/23 11/19/23 tablet,extended release(part/cryst) ropinirole 2 mg tablet 2 mg PO HS 09/20/23 11/20/23 11/19/23 sennosides 8.6 mg-docusate sodium 1 tab PO BID 09/20/23 11/20/23 11/19/23 50 mg tablet (Senna-Time S) tirzepatide 5 mg/0.5 mL 5 mg subcut WK 09/20/23 11/20/23 11/16/23 subcutaneous pen injector (Kevan) tramadol 50 mg tablet 50 mg PO TID PRN Pain 09/20/23 11/20/23 Unknown trazodone 100 mg tablet 100 mg PO HS 09/20/23 11/20/23 11/19/23 Vit D3 1000iu 200+50 Softge 1 tab PO QAM 10/24/23 11/20/23 11/19/23 apixaban 2.5 mg tablet (Eliquis) 2.5 mg PO BID 10/24/23 11/20/23 11/19/23 dicyclomine 20 mg tablet 20 mg PO QID PRN abdominal cramping 10/24/23 11/20/23 Unknown duloxetine 30 mg capsule,delayed See Rx Instructions .Route .COMPLEX 10/24/23 11/20/23 11/19/23 release triamcinolone acetonide 0.5 % 1 applic topical BID PRN chest rash 10/24/23 11/20/23 Unknown topical cream Active Medications Generic Name Dose Route Start Last Admin Trade Name Freq PRN Reason Stop Dose Admin Acetaminophen 650 mg 11/21/23 00:54 11/25/23 08:11 Acetaminophen 325 Mg Tab PO 12/21/23 00:53 650 mg QID PRN Administration pain/fever Apixaban 2.5 mg 11/20/23 21:00 11/25/23 09:29 Apixaban 2.5 Mg Tab PO 12/20/23 20:59 2.5 mg BID ROBERT Administration Aspirin 81 mg 11/21/23 09:00 11/25/23 09:29 Aspirin 81 Mg Ectab PO 12/21/23 08:59 81 mg DAILY ROBERT Administration Atorvastatin Calcium 20 mg 11/21/23 09:00 11/25/23 09:29 Atorvastatin 20 Mg Tab PO 12/21/23 08:59 20 mg DAILY ROBERT Administration Baclofen 10 mg 11/20/23 16:25 11/20/23 21:10 Baclofen 10 Mg Tab PO 12/20/23 16:24 10 mg BID PRN Administration Muscle Spasm Clonazepam 0.5 mg 11/20/23 21:00 11/25/23 08:12 Clonazepam 0.5 Mg Tab PO 12/20/23 20:59 0.5 mg BID ROBERT Administration Clopidogrel Bisulfate 75 mg 11/21/23 09:00 11/25/23 09:29 Clopidogrel Bisulfate 75 Mg Tab PO 12/21/23 08:59 75 mg DAILY ROBERT Administration Diclofenac Sodium 2 gm 11/23/23 13:45 11/25/23 11:15 Diclofenac Sod 1% Gel 100 Gm Tube EXT 12/23/23 13:44 2 gm Q6 ROBERT Administration Protocol Dicyclomine HCl 20 mg 11/20/23 16:25 11/21/23 11:59 Dicyclomine Hcl 20 Mg Tab PO 12/20/23 16:24 20 mg QID PRN Administration abdominal cramping Duloxetine HCl 60 mg 11/20/23 17:00 11/25/23 09:28 Duloxetine Hcl 60 Mg Cap PO 12/20/23 16:59 60 mg DAILY ROBERT Administration Duloxetine HCl 30 mg 11/20/23 17:00 11/25/23 09:29 Duloxetine Hcl 30 Mg Cap PO 12/20/23 16:59 30 mg DAILY ROBERT Administration Gabapentin 600 mg 11/20/23 21:00 11/25/23 17:00 Gabapentin 600 Mg Tab PO 12/20/23 20:59 Not Given TID ROBERT Piperacillin Sod/Tazobactam 100 mls @ 25 mls/hr 11/25/23 06:00 11/25/23 13:46 Sod 4.5 gm/ Dextrose IV 12/05/23 05:59 25 mls/hr Q8H ROBERT Administration Protocol Sodium Chloride 1,000 mls @ 150 mls/hr 11/25/23 00:30 11/25/23 17:01 Nss IV 12/25/23 00:29 0 mls/hr .[id number] ROBERT Infusion Insulin Aspart 0 units 11/25/23 00:00 11/25/23 12:23 Insulin Aspart Per Unit Charge SC 12/25/23 00:00 Not Given Q6 ROBERT Insulin Glargine 0 units 11/24/23 21:00 11/25/23 08:11 Lantus Per Unit Charge SQ 12/20/23 20:59 30 units BID ROBERT Administration Protocol Levothyroxine Sodium 50 mcg 11/20/23 17:00 11/25/23 05:31 Levothyroxine Sodium 50 Mcg Tablet PO 12/20/23 16:59 50 mcg DAILYBB ROBERT Administration Levothyroxine Sodium 200 mcg 11/20/23 17:00 11/25/23 05:31 Levothyroxine Sodium 200 Mcg Tablet PO 12/20/23 16:59 200 mcg DAILYBB ROBERT Administration Magnesium Hydroxide 30 ml 11/22/23 17:59 11/23/23 05:25 Magnesium Hydroxide Susp 30 Ml Udc PO 12/22/23 17:58 30 ml Q6H PRN Administration Constipation Magnesium Oxide 400 mg 11/20/23 21:00 11/25/23 09:28 Magnesium Oxide 400 Mg Tab PO 12/20/23 20:59 400 mg BID ROBERT Administration Ondansetron HCl 4 mg 11/24/23 20:39 11/24/23 21:21 Ondansetron 4 Mg Od Tab PO 12/24/23 20:38 4 mg Q8H PRN Administration Nausea And Vomiting Pantoprazole Sodium 40 mg 11/21/23 09:00 11/25/23 09:28 Pantoprazole 40 Mg Tab PO 12/21/23 08:59 40 mg DAILY ROBERT Administration Protocol Ropinirole HCl 2 mg 11/20/23 21:00 11/24/23 22:53 Ropinirole Hcl 2 Mg Tablet PO 12/20/23 20:59 2 mg HS ROBERT Administration Senna/Docusate Sodium 1 tab 11/20/23 21:00 11/25/23 09:29 Docusate Sodium/Senna 50/8.6mg Tab PO 12/20/23 20:59 1 tab BID ROBERT Administration Sodium Chloride 2 sprays 11/21/23 00:13 11/21/23 00:58 Sodium Chloride 0.65% Na Soln 45 Ml ([place]) NA 12/21/23 00:12 2 sprays TID PRN Administration Nasal Congestion Tramadol HCl 50 mg 11/20/23 16:25 11/24/23 20:08 Tramadol Hcl 50 Mg Tablet PO 12/20/23 16:24 50 mg TID PRN Administration Pain Trazodone HCl 100 mg 11/20/23 21:00 11/24/23 22:54 Trazodone Hcl 100 Mg Tab PO 12/20/23 20:59 100 mg HS ROBERT Administration (5) Chronic respiratory failure Respiratory failure complication: hypoxia Qualified Code(s): J96.11 - Chronic respiratory failure with hypoxia (6) CKD (chronic kidney disease), stage III Chronic kidney disease stage 3 subtype: unspecified whether 3a or 3b Qualified Code(s): N18.30 - Chronic kidney disease, stage 3 unspecified (8) HTN (hypertension) Hypertension type: primary hypertension Qualified Code(s): I10 - Essential (primary) hypertension (9) Hypothyroidism Hypothyroidism type: unspecified Qualified Code(s): E03.9 - Hypothyroidism, unspecified
--- NOTE | 2023-11-25 18:00 | Communication Note ---
Date of Service: November 25, 2023 Evaluated patient about 60 min after arriving to floor. Patient hypotensive to 60s SBP. Tachycardic 120s. On CPAP initially. Ordered rainbow labs. ABG. Transitioned to Bipap. CXR ordered with increased intersitial markings Nearly 1/2 L NS bolused, however, no improvement in SBP and aggressive fluids limited 2/2 HFpEF/resp status ICU consulted for pressor support and management of septic shock
--- NOTE | 2023-11-25 18:38 | Critical Care Consultation ---
Date of Consultation November 25, 2023 Assessment & Plan (1) Acute CHF: (2) Transient hypotension: (3) Sepsis secondary to UTI: Plan 68-year-old female with history of morbid obesity, ELISSA on CPAP, chronic hypoxic respiratory failure and CKD stage III who presented to the ICU after having a transient episode of postoperative hypotension due to placement of a J stent for ureteral obstruction. Systolic blood pressures improved significantly with 1 L fluid. Will hold on further crystalloid infusion given history of diastolic heart failure and cor pulmonale. Continue vancomycin and Zosyn. De-escalate antibiotics based on cultures from urine and blood. She did have urine cultures from August which grew back Klebsiella oxytoca which were largely pansensitive. Continue BiPAP with sleep and as needed. Wean FiO2 as able. She has a prior history of PE. Will hold Eliquis at this time given urologic procedure and hematuria. She has an IVC filter from before. Due to hypoactive delirium, will hold on any sedative-hypnotics. If patient has worsening agitation, can consider Precedex Will monitor hemodynamics and urine output closely while in ICU. Plan of care discussed with the hospitalist, bedside RN, RT and overnight ICU JOHN. History of Present Illness Reason for Consultation: Hypotension and hypoxia Attending Physician: Keya Adorno MD History of Present Illness 68-year-old female with a past medical history of chronic respiratory failure on supplemental oxygen ELISSA on CPAP, chronic diastolic heart failure, hypertension and hyperlipidemia who presents to the ICU due to transient hypotension on the floor status post stenting of the right ureter by urology in the OR. Patient had systolic blood pressures in the 60s and increased confusion. She received 1 L of fluids and was transferred to the ICU. Her blood pressure has improved significantly and her systolics are currently in the 170s. She remains on BiPAP, but is alert and awake. She is a bit slow to answer questions but does answer appropriately when redirected. She denies any shortness of breath or chest pain. No recent fevers, chills or night sweats. She is currently on broad-spectrum antibiotics and has 2 peripheral IVs placed. Allergies Allergy/AdvReac Type Severity Reaction Status Date / Time morphine Allergy Severe Swelling, Verified 11/20/23 10:52 "Violent reaction- almost " dapagliflozin [From [facility]] Allergy Intermediate Yeast Verified 11/20/23 10:52 infections tetanus toxoid, adsorbed Allergy Intermediate Passed Verified 11/20/23 10:52 out, "got sick" as child bupropion [From Wellbutrin] AdvReac Intermediate Recurrent Verified 11/20/23 10:52 falls as per patient codeine AdvReac Intermediate Hallucinati Verified 11/20/23 10:52 ons empagliflozin AdvReac Intermediate Yeast Verified 11/20/23 10:52 [From Jardiance] infections heparin AdvReac Intermediate HIT, Verified 11/20/23 10:52 "Fluid in lungs" hydrocodone [From Vicodin] AdvReac Intermediate Drowsy Verified 11/20/23 10:52 Home Medications Medication Instructions Recorded Confirmed Type aspirin 81 mg tablet,delayed 81 mg PO DAILY 09/20/23 11/20/23 History release atorvastatin 20 mg tablet 20 mg PO DAILY 09/20/23 11/20/23 History baclofen 10 mg tablet 10 mg PO BID PRN Muscle Spasm 09/20/23 11/20/23 History clonazepam 0.5 mg tablet 0.5 mg PO BID 09/20/23 11/20/23 History clopidogrel 75 mg tablet 75 mg PO DAILY 09/20/23 11/20/23 History duloxetine 60 mg capsule,delayed See Rx Instructions .Route .COMPLEX 09/20/23 11/20/23 History release furosemide 40 mg tablet 60 mg PO BID 09/20/23 11/20/23 History gabapentin 300 mg capsule 600 mg PO TID 09/20/23 11/20/23 History insulin aspart U-100 100 unit/mL 8 unit subcut UD 09/20/23 11/20/23 History (3 mL) subcutaneous pen (Novolog FlexPen U-100 Insulin aspart) insulin degludec 100 unit/mL (3 50 unit subcut HS 09/20/23 11/20/23 History mL) subcutaneous pen (Tresiba FlexTouch U-100 insulin) levothyroxine 200 mcg tablet See Rx Instructions .Route .COMPLEX 09/20/23 11/20/23 History levothyroxine 50 mcg tablet See Rx Instructions .Route .COMPLEX 09/20/23 11/20/23 History magnesium oxide 400 mg (241.3 mg 400 mg PO BID 09/20/23 11/20/23 History magnesium) tablet omeprazole 20 mg capsule,delayed 20 mg PO DAILY 09/20/23 11/20/23 History release oxycodone 5 mg tablet 5 mg PO Q6H PRN Pain 09/20/23 11/20/23 History potassium chloride 20 mEq 20 meq PO BID 09/20/23 11/20/23 History tablet,extended release(part/cryst) ropinirole 2 mg tablet 2 mg PO HS 09/20/23 11/20/23 History sennosides 8.6 mg-docusate sodium 1 tab PO BID 09/20/23 11/20/23 History 50 mg tablet (Senna-Time S) tirzepatide 5 mg/0.5 mL 5 mg subcut WK 09/20/23 11/20/23 History subcutaneous pen injector (Mounjaro) tramadol 50 mg tablet 50 mg PO TID PRN Pain 09/20/23 11/20/23 History trazodone 100 mg tablet 100 mg PO HS 09/20/23 11/20/23 History Vit D3 1000iu 200+50 Softge 1 tab PO QAM 10/24/23 11/20/23 History apixaban 2.5 mg tablet (Eliquis) 2.5 mg PO BID 10/24/23 11/20/23 History dicyclomine 20 mg tablet 20 mg PO QID PRN abdominal cramping 10/24/23 11/20/23 History duloxetine 30 mg capsule,delayed See Rx Instructions .Route .COMPLEX 10/24/23 11/20/23 History release triamcinolone acetonide 0.5 % 1 applic topical BID PRN chest rash 10/24/23 11/20/23 History topical cream Patient History Medical History (Updated 11/25/23 @ 18:50 by David Gamboa MD) Sepsis secondary to UTI Transient hypotension UTI due to Klebsiella species Hypotension Acute pyelonephritis Hypomagnesemia Mitral valve stenosis Echo 06/2023: Borderline mild mitral stenosis secondary to severe mitral annular calcification Chronic hypoxemic respiratory failure Cataract, bilateral Lumbago with sciatica Lower extremity pain, bilateral Neuropathy feet On home oxygen therapy 3L continuous CHF (congestive heart failure) Follows with Dr. Woodall Subclavian artery stenosis Cerebrovascular duplex study 06/2023: Retrograde flow in the right vertebral artery. 50-69% proximal right subclavian artery stenosis. Antegrade flow in the left vertebral artery. Normal flow in the left subclavian artery. Carotid stenosis, right Cerebrovascular duplex 07/11/23: 80-99% R ICA stenosis. No hemodynamically significant stenosis in the LICA. Diabetes mellitus, type II CKD (chronic kidney disease), stage III Follows with [facility] ELISSA on CPAP CPAP + 3L O2 (O2 is continuous) HTN (hypertension) HLD (hyperlipidemia) Morbid obesity HIT (heparin-induced thrombocytopenia) 2009, [facility] then life flight to [place] > "resolved" Depression with anxiety Hypothyroidism History of pulmonary embolism 2008 s/p zoraida filter GERD (gastroesophageal reflux disease) RLS (restless legs syndrome) History of DVT (deep vein thrombosis) 2008 (during ICU [place] admission/PNA) Presence of IVC filter 2008 Fibromyalgia Surgical History Family history of reaction to anesthesia Brother/niece- PONV Brother- "wakes up violent" History of colostomy reversal History of tooth extraction History of arthroscopy left ankle History of incisional hernia repair Nausea and vomiting after administration of anesthetic agent History of colonoscopy History of cholecystectomy History of total right knee replacement History of tracheostomy 06/2009 (per [facility] records), secondary to acute respiratory failure in setting of PNA, reversed a few months later History of thyroidectomy, total 2010 History of colon resection secondary to R colon perforation, resected treated with colostomy and eventual reversal in 2008, Dr. Lerma Family History Father , age 74 Lung cancer Mother , age 45 Cirrhosis Social History Smoking Status: Former smoker Tobacco Type: Cigarettes Cigarettes Per Day: 1996; Second Hand Exposure: No; Do You Dip or Chew Tobacco: No; Hx Alcohol Use: No Hx Substance Use: No Preferred Language: Korean Communication Ability: Effective Musical Performer Required: No Beliefs That Will Affect Care: None marital status: Single Current Living Situation: Alone Current Living Situation Comment: Lives by self in apartment How many Children do You have: 0 Feels Safe at Home: Yes Assistive Devices: Oxygen - Continuous, Walker and Other Review of Systems Review of Systems: All systems reviewed & are unremarkable except as noted in HPI & below Physical Exam Physical Exam: Constitutional: Patient appears to be of their stated age. Morbidly obese. Eyes: Pupils are equal round and reactive to light. Conjunctivae are normal. Anicteric sclera. Ears nose, mouth and throat: Mallampati class 2. Normal posterior oropharynx. Uvula is midline. BiPAP mask in place Neck: Trachea is midline. Visual inspection is normal. Respiratory: Mild crackles bilaterally. Cardiovascular: Regular rate and rhythm. No murmurs. No edema. Gastrointestinal: Normal bowel sounds, soft, nontender and nondistended. No hepatosplenomegaly noted. Musculoskeletal: No cyanosis. Patient is able to move all extremities. Strength is 5 out of 5 in the upper and lower extremities. Skin: No rashes, warm dry and intact. Neurologic: No obvious focal neurological deficits seen. Psychiatric: Alert and oriented x3 with a euthymic affect. Results & Data Results & Data Vital Signs (Past 12 Hours) Vital Signs Temp Pulse Pulse Resp BP BP Pulse Ox 11/25/23 18:03 79 11/25/23 17:36 66/34 L 11/25/23 17:35 91/47 L 11/25/23 17:24 97 H 18 98 11/25/23 17:21 69/43 L 11/25/23 17:13 37.3 C 96 H 23 75/43 L 96 11/25/23 16:51 37.7 C H 103 H 20 86/47 L 96 11/25/23 15:52 38.5 C H 116 H 21 103/50 L 97 11/25/23 15:36 115 H 26 H 95 11/25/23 15:26 37.5 C 116 H 21 89/50 L 92 11/25/23 15:04 37.6 C H 117 H 22 95/57 L 91 11/25/23 14:45 120 H 22 100/55 L 91 11/25/23 14:35 118 H 22 101/50 L 92 11/25/23 14:25 37.3 C 117 H 24 104/48 L 92 11/25/23 14:15 120 H 22 118/54 L 93 11/25/23 14:05 37 C 120 H 22 154/50 H 93 11/25/23 12:43 36.9 C 117 H 28 H 125/57 L 91 11/25/23 10:38 37.2 C 126 H 18 118/51 L 94 11/25/23 09:44 113 H 11/25/23 08:52 37.1 C 11/25/23 07:50 38.0 C H 120 H 18 132/56 L 95 11/25/23 07:11 O2 Del Method O2 Flow Rate FiO2 11/25/23 18:03 11/25/23 17:36 11/25/23 17:35 11/25/23 17:24 50 11/25/23 17:21 11/25/23 17:13 CPAP 8 50 11/25/23 16:51 CPAP 8 50 11/25/23 15:52 CPAP 8 50 11/25/23 15:36 50 11/25/23 15:26 Oxymask 8 11/25/23 15:04 Oxymask 8 11/25/23 14:45 Nasal Cannula 6 11/25/23 14:35 Oxymask 4 11/25/23 14:25 Oxymask 4 11/25/23 14:15 Oxymask 4 11/25/23 14:05 Oxymask 6 11/25/23 12:43 Nasal Cannula 6 11/25/23 10:38 Nasal Cannula 6 11/25/23 09:44 11/25/23 08:52 11/25/23 07:50 Nasal Cannula 4 11/25/23 07:11 Nasal Cannula 5 Coding Level of Care Code 30913 IN/OBS CONSULT LVL 4,60M Diagnoses Acute CHF I50.9 Transient hypotension I95.9 Sepsis secondary to UTI A41.9; N39.0
[2023-11-25 19:17] LABS: Alanine Aminotransferase 15 U/L (7-52); Albumin Globulin Ratio 0.9 (0.9-2); Albumin Level 2.9 gm/dl (3.4-5.0); Alkaline Phosphatase 69 U/L (34-104); Anion Gap 7 (3-11); Bilirubin,Total 0.8 mg/dl (0.2-1.0); Blood Urea Nitrogen 34 mg/dl (6-23); Carbon Dioxide 27 mmol/L (21-32); Chloride 100 mmol/L (98-107); Creatinine Clr Calc Pharmacy 29.6 ml/min; Est GFR (African American) 22.9 ml/min; Est GFR (Non-African American) 19.8 ml/min; Globulin 3.3 gm/dl (2.5-4.0); Glucose 119 mg/dl (70-99(Fasting)); Magnesium 1.9 mg/dl (1.7-2.4); Phosphorus 3.2 mg/dl (2.5-4.9); Sodium 134 mmol/L (136-145); Total Protein 6.2 gm/dl (6.0-8.3)
[2023-11-25 19:21] LABS: Basophils # (auto) 0.06 K/uL (0.00-0.20); Basophils % (auto) 0.2 %; Eosinophils # (auto) 0.19 K/uL (0.00-0.50); Eosinophils % (auto) 0.7 %; Hematocrit (blood only) 31.7 % (37.0-47.0); Hemoglobin 9.9 g/dl (12.0-16.0); Immature Granulocytes # (auto) 0.26 K/uL (0.01-0.20); Lymphocytes # (auto) 0.27 K/uL (1.20-3.40); Mean Corpuscular Hemoglobin 27.8 pg (25.0-34.0); Mean Corpuscular Hgb Conc 31.2 g/dL (32.0-36.0); Mean Platelet Volume 10.7 fL (9.4-12.4); Monocytes # (auto) 0.61 K/uL (0.11-0.59); Monocytes % (auto) 2.3 %; Neutrophils % (auto) 94.8 %; Platelet Count 296 K/uL (130-400); RDW Coefficient of Variation 15.8 % (11.5-14.5); RDW Standard Deviation 51.6 fL (36.4-46.3); Red Blood Count 3.56 M/uL (4.20-5.40); Toxic Vacuolation 1+; White Blood Count 26.59 K/ul (4.8-10.8)
[2023-11-25] MEDS: SODIUM CHLORIDE 0.9% 500 ML IV ONE (19:40)
[2023-11-25] MEDS: ICU Protocol for HYPERglycemia SCH (19:44)
[2023-11-25] MEDS ORDERED: Nursing to Pharmacy Communication SCH (19:45)
[2023-11-25] MEDS: VANCOMYCIN HCL 1,000 MG in SODIUM CHLORIDE 0.9% 250 ML IV SCH (19:58)
[2023-11-25 20:32] LABS: Potassium 4.5 mmol/L (3.5-5.1)
[2023-11-25] MEDS: PLASMA-LYTE A 1,000 ML IV ONE (20:46)
[2023-11-26] MEDS: ACETAMINOPHEN 1,000 MG/100 ML VIAL IV STA (02:04)
[2023-11-26] MEDS: PLASMA-LYTE A 500 ML IV ONE (03:04)
[2023-11-26] MEDS ORDERED: STAT IV Infusion **Titration per Protocol STA (03:28)
[2023-11-26] MEDS: NOREPINEPHRINE/D5W 4 MG/250 ML PLCT IV SCH (03:37)
[2023-11-26] MEDS: NOREPINEPHRINE/D5W 4 MG/250 ML IV ONE (03:37)
[2023-11-26 03:55] LABS: Base Excess VBG 0.9 mEq/L; HCO3 VBG 28 mmol/L; Oxygen Saturation VBG 93.5 %; PCO2 VBG 51 mmHg (38-50); PO2 VBG 62 mmHg; pH VBG 7.34 (7.36-7.41)
[2023-11-26 04:12] LABS: Hematocrit (blood only) 30.5 % (37.0-47.0); Hemoglobin 9.2 g/dl (12.0-16.0); Mean Corpuscular Hemoglobin 27.3 pg (25.0-34.0); Mean Corpuscular Hgb Conc 30.2 g/dL (32.0-36.0); Mean Corpuscular Volume 90.5 fL (80.0-100.0); Mean Platelet Volume 10.7 fL (9.4-12.4); Platelet Count 248 K/uL (130-400); RDW Coefficient of Variation 15.9 % (11.5-14.5); RDW Standard Deviation 53.1 fL (36.4-46.3); Red Blood Count 3.37 M/uL (4.20-5.40); White Blood Count 20.79 K/ul (4.8-10.8)
[2023-11-26 04:22] LABS: BUN Creatinine Ratio 15.7 (10-20); Calcium 7.9 mg/dl (8.6-10.3); Creatinine Clr Calc Pharmacy 28.3 ml/min; Est GFR (African American) 21.7 ml/min; Est GFR (Non-African American) 18.7 ml/min; Magnesium 1.9 mg/dl (1.7-2.4); Phosphorus 3.7 mg/dl (2.5-4.9); Potassium 4.3 mmol/L (3.5-5.1)
[2023-11-26 04:41] LABS: Basophils # (auto) 0.06 K/uL (0.00-0.20); Basophils % (auto) 0.3 %; Eosinophils # (auto) 0.48 K/uL (0.00-0.50); Eosinophils % (auto) 2.3 %; Immature Granulocytes # (auto) 0.15 K/uL (0.01-0.20); Immature Granulocytes % (auto) 0.7 %; Lymphocytes # (auto) 0.24 K/uL (1.20-3.40); Lymphocytes % (auto) 1.2 %; Monocytes # (auto) 0.54 K/uL (0.11-0.59); Monocytes % (auto) 2.6 %; Neutrophils # (auto) 19.32 K/uL (1.40-6.50); Neutrophils % (auto) 92.9 %
--- NOTE | 2023-11-26 05:05 | Procedure Note ---
Procedure Note Date of Service November 26, 2023 Note ARTERIAL LINE PROCEDURE NOTE: Procedure: Arterial Line Placement Proceduralist: Jordan SIMPSON ([facility]) Attending: Dr. Gamboa Indication: Monitoring on Pressors, need for accurate blood pressure Anesthesia: [x]Lidocaine 1% Verbal Consent was obtained as delegated to me by Dr. Gamboa from patient. Indication, risks, and benefits were explained to include but not limited to: Pain, Damage to surrounding vessels/nerves, infection, bleeding, blood clot in the artery, further procedures needed if complications occur. A time-out was completed verifying correct patient, procedure, site. Allens test was performed to ensure adequate perfusion. 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 The Left wrist was then prepped and draped in the usual sterile fashion. Ultrasound guidance was used to aid needle placement. A 20g Arrow arterial line was introduced into the LEFT RADIAL artery. Catheter was threaded, and the needle was removed with appropriate blood return. Good waveform was observed. The patient tolerated the procedure well. The line was secured using suture and covered with sterile dressing. Attempts x2 Blood Loss: Minimal Complications: None immediately observed Artery Identified: YES Line confirmed in Artery with ultrasound: YES Complications: NONE Patient tolerated procedure: WELL Coding CPT Codes Tubes, Drains, and Vasc Access - Tubes, Drains, and Vasc Access: [id number] Arterial Cath/Cannulation Sampling/Monitoring/Transfusion ([id number]) [facility] Procedure Codes (Charges) Tubes, Drains, and Vasc Access Procedure 1: Tubes, Drains, and Vasc Access: [id number] Arterial Cath/Cannulation Sampling/Monitoring/Transfusion
--- NOTE | 2023-11-26 05:20 | Communication Note ---
Date of Service: November 26, 2023 0400- Patient Blood pressure again became low in the 80s/40s and not responsive to volume challenge. Her blood pressure measurements have been obtained via NIBP on the forearm secondary to body habitus and upper arms not lending to good fit of bp cuffs. She has had blood pressure variability with low as well as high values through her hospitalization. With her current clinical state accurate BP monitoring will be imperative at this juncture. As she is now remaining hypotensive despite volume replacement, vasopressors will be added. Arterial line access will be obtained, see separate procedure note, to allow for accurate blood pressure monitoring and maintaining maps >65. O: She is awake, oriented, conversant, moving all extremities skin is warm and dry. No evidence of bleeding or hematomas, urine has cleared and is more clive colored, lungs are clear and is oxygenating well on CPAP/BIPAP as well as NC. Will obtain AM labs now to include lactic acid, VBG, iCA, BMP, MG, Phos, CBC and T&C A/P 1.) Shock likely septic at this time with source to be clearly identified at this time. - blood cultures remain with NGTD - Urine was turbid from stent placement yesterday, but UA with out bacteria and culture with NGTD - Organ dysfunction noted with ELSIE - Random Cortisol >20 - Lactate <2.0 - Acid base status acceptable - Electrolytes acceptable to include iCA. - Continue ABX coverage with Zosyn and Vancomycin- consider changing Vanco with renal function- defer to day team physicians Continue supportive care to defend MAP of >65, she may need central access with CVL or PICC line depending her vasopressor requirements. CC Time- 30 additional minutes [facility]
[2023-11-26 06:34] LABS: Thyroid Stimulating Hormone 0.205 uIu/ml (0.300-4.500)
--- NOTE | 2023-11-26 07:06 | Hospitalist Progress Note ---
Date of Service November 26, 2023 Assessment & Plan (1) Ambulatory dysfunction: (2) Weakness: (3) Type 2 diabetes, uncontrolled, with neuropathy: (4) Chronic diastolic heart failure: (5) Chronic respiratory failure: (6) CKD (chronic kidney disease), stage III: (7) ELISSA on CPAP: (8) HTN (hypertension): (9) Hypothyroidism: (10) Depression with anxiety: (11) History of pulmonary embolism: (12) Constipation: Plan This is a 68 y/o female with a history of chronic respiratory failure due to probable interstitial lung disease, on chronic O2 at 4 L, ELISSA on CPAP, chronic diastolic heart failure, PVD, HTN, hyperlipidemia, insulin-requiring DM, CKD with baseline creatinine ~1.6, prior DVT/PE, s/p IVC filter placement and on Eliquis, hx HIT, hypothyroidism, fibromyalgia, RLS and depression who presents to the ED today after a fall at home. Work-up in the ED was negative for acute injury, but pt reported severe pain in her knees when she attempted an ambulatory trial in the ED. She feels like she unsafe to return home on her own so she was referred for admission and possible rehab placement. Of note, it appears that she was originally supposed go to [facility] for rehab after her admission in late Sep (d/c on 10/28) but she declined this option as she had no one to take care of her cats. She is willing to consider possible rehab placement 11/24. Course complicated by abdominal/flank pain overnight, hypotension, and encephalopathy. CT abd pelvis with right hydronephrosis with UPJ obstruction. Urology consulted and stent placed with return of purulent urine. 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 #Right hydronephrosis s/p stent placement -CT scan with the same chronic findings as prior exams, however given clinical deterioration consulted urology -s/p stent placement 11/24 -notable hypotensive s/p procedure -Continue Vanc Zosyn -Follow cultures -1.25 L bolus with plans for IV 125cc/hr hydration -Cannot safely achieve 3L bolus 2/2 chronic comorbidities and resp failure, will monitor closely -NPO for now -Other infectious work up: knee less suspicious for infectious etiology at this time, likely above urologic source, ortho following -ICU consulted -Pressors per ICU, central line placed -Following infectious work up #ELSIE on Chronic, stable. Baseline creatinine around 1.6 Avoid nephrotoxic agents iso sepsis Cr up to 2.54 s/p stenting procure, prerenal 2/2 hypotension Urine studies ordered Consult nephrology 2/2 ELSIE and volume concerns IV hydration at this time, strict I/Os #Acute on chronic respiratory failure, multifactorial #Chronic heart failure with preserved ejection fraction On 4 L O2 chronically Chronic, stable Patient now s/p stent placement, after procedure requiring CPAP Needing to push fluid, however, concern for volume overload, will need to likely diurese once sepsis resolves Wean o2 as able ABG ordered BiPAP now #Ambulatory dysfunction #Severe left knee osteoarthritis Ongoing bilateral knee pain, h/o R TKA by Dr. Crarillo years ago and following with [facility] ortho for L knee OA with plans for possible future L TKA but process complicated by BMI and other comorbidities. Patient has been losing weight, due to re-evaluate possibility of TKA but interested in second opinion. Routine consult placed for [facility] ortho. - Fall precautions - Pain control prn -Accepted to rehab, bed not available until early next week -Ortho following: consider lumbar imaging when patient stable #DMTII Chronic, pt reports sugars have been stable for her since being discharged SSI #Hypothyroidism Chronic, stable Continue levothyroxine #depression mood stable continue meds #Constipation bowel regimen #Prior PE IVC filter, continue eliquis Code Status: Full code DVT Prophylaxis: continue Eliquis, has IVC filter Disposition managing new sepsis as above Admission and Anticipated Discharge Date Admission Date: November 20, 2023 Subjective Patient evaluated at bedside in ICU More conversational, responded appropriately; however, tearful. Denies chest pain, nausea, vomiting; endorses frustration with abdalla Physical Exam Constitutional: hypotensive, on levophed Respiratory: diminished 2/2 habitus, effort Gastrointestinal (Abdomen): normal bowel sounds, soft, nontender, no hepatosplenomegaly large hernia palpated, stable since prior exam Results & Data Results & Data Vital Signs (Past 12 Hours) Vital Signs Temp Pulse Resp BP Pulse Ox O2 Del Method FiO2 11/26/23 06:15 84/52 L 11/26/23 06:15 98 H 23 97 11/26/23 06:01 37.1 C 11/26/23 06:00 106 H 26 H 97 11/26/23 06:00 91/53 L 11/26/23 05:51 98 H 23 98 45 11/26/23 05:45 81/46 L 11/26/23 05:45 104 H 24 94 11/26/23 05:30 60/39 L 11/26/23 05:30 103 H 26 H 92 11/26/23 05:15 71/57 L 11/26/23 05:15 102 H 21 93 11/26/23 05:00 82/47 L 11/26/23 05:00 102 H 21 92 11/26/23 04:45 84/60 L 11/26/23 04:45 101 H 25 H 91 11/26/23 04:31 101 H 19 89 L 11/26/23 04:31 82/52 L 11/26/23 04:30 102 H 16 91 11/26/23 04:18 94/50 L 11/26/23 04:18 97 H 17 96 11/26/23 04:16 70/43 L 11/26/23 04:16 95 H 19 96 11/26/23 04:15 93 H 18 97 11/26/23 04:10 96 H 17 95 11/26/23 04:10 85/47 L 11/26/23 04:00 105/54 L 11/26/23 04:00 93 H 17 96 11/26/23 03:45 105/47 L 11/26/23 03:45 93 H 21 93 11/26/23 03:30 88/43 L 11/26/23 03:30 93 H 20 95 11/26/23 03:23 74/38 L 11/26/23 03:23 98 H 20 95 11/26/23 03:20 97 H 21 96 11/26/23 03:20 65/26 L 11/26/23 03:17 64/36 L 11/26/23 03:17 95 H 26 H 95 11/26/23 03:16 95 H 22 97 11/26/23 03:16 64/32 L 11/26/23 03:15 96 H 20 98 11/26/23 03:00 88/48 L 11/26/23 03:00 100 H 21 98 11/26/23 02:58 85/33 L 11/26/23 02:58 101 H 16 98 11/26/23 02:56 68/36 L 11/26/23 02:56 102 H 19 99 11/26/23 02:51 79/45 L 11/26/23 02:51 103 H 24 95 11/26/23 02:48 49/22 L 11/26/23 02:48 103 H 16 99 11/26/23 02:47 53/32 L 11/26/23 02:47 104 H 26 H 99 11/26/23 02:45 104 H 20 99 11/26/23 02:33 81/37 L 11/26/23 02:33 108 H 18 99 11/26/23 02:32 65/38 L 11/26/23 02:32 109 H 19 98 11/26/23 02:30 60/41 L 11/26/23 02:30 110 H 17 98 11/26/23 02:16 108 H 21 94 11/26/23 02:16 93/43 L 11/26/23 02:15 108 H 29 H 98 11/26/23 02:02 106 H 15 96 11/26/23 02:02 109/40 L 11/26/23 02:00 79/60 L 11/26/23 02:00 106 H 19 96 11/26/23 01:48 82/68 L 11/26/23 01:48 107 H 23 93 11/26/23 01:47 108 H 21 95 11/26/23 01:46 108 H 24 89 L 11/26/23 01:46 74/60 L 11/26/23 01:45 108 H 16 98 11/26/23 01:30 105 H 23 100 11/26/23 01:30 114/82 11/26/23 01:22 100 H 11/26/23 01:20 100 H 22 100 45 11/26/23 01:15 111/85 11/26/23 01:15 105 H 24 99 11/26/23 01:00 119/61 11/26/23 01:00 102 H 23 100 11/26/23 00:45 106/73 11/26/23 00:45 101 H 23 100 11/26/23 00:30 105/59 L 11/26/23 00:30 100 H 22 100 11/26/23 00:16 101 H 22 100 11/26/23 00:16 126/53 L 11/26/23 00:15 101 H 21 100 11/26/23 00:01 102 H 21 97 11/26/23 00:01 124/42 L 11/26/23 00:00 103 H 21 97 11/25/23 23:47 36.7 C 11/25/23 23:45 117/66 11/25/23 23:45 102 H 18 100 11/25/23 23:30 102/66 11/25/23 23:30 97 H 21 98 11/25/23 23:15 84/59 L 11/25/23 23:15 97 H 21 99 11/25/23 23:00 99/65 L 11/25/23 23:00 96 H 21 100 11/25/23 22:45 101 H 22 96 11/25/23 22:45 96/53 L 11/25/23 22:30 95/77 L 11/25/23 22:30 99 H 21 99 11/25/23 22:15 81/66 L 11/25/23 22:15 99 H 26 H 99 11/25/23 22:00 101/79 11/25/23 22:00 103 H 21 97 11/25/23 21:45 113/55 L 11/25/23 21:45 98 H 21 94 11/25/23 21:30 97 H 23 92 11/25/23 21:30 123/54 L 11/25/23 21:15 97 H 22 93 11/25/23 21:15 105/50 L 11/25/23 21:00 126/52 L 11/25/23 21:00 99 H 21 97 11/25/23 20:46 106/63 11/25/23 20:46 98 H 28 H 96 11/25/23 20:45 101 H 21 100 11/25/23 20:30 100 H 19 100 11/25/23 20:30 96/53 L 11/25/23 20:16 91/52 L 11/25/23 20:16 100 H 17 100 11/25/23 20:15 98 H 18 100 11/25/23 20:13 37.7 C H 11/25/23 20:01 108/50 L 11/25/23 20:01 97 H 18 90 11/25/23 20:00 98 H 16 100 11/25/23 19:55 40/33 L 11/25/23 19:55 96 H 18 81 L 11/25/23 19:49 87/40 L 11/25/23 19:49 98 H 24 100 11/25/23 19:46 77/37 L 11/25/23 19:46 100 H 18 93 11/25/23 19:45 98 H 18 100 11/25/23 19:34 103/43 L 11/25/23 19:34 99 H 17 99 11/25/23 19:30 99 H 17 100 11/25/23 19:28 BiPAP 50 11/25/23 19:24 100 H 21 96 11/25/23 19:24 77/40 L 11/25/23 19:23 98 H 15 98 11/25/23 19:23 81/40 L 11/25/23 19:19 86/44 L 11/25/23 19:19 100 H 21 99 11/25/23 19:16 76/48 L 11/25/23 19:16 100 H 16 100 11/25/23 19:15 100 H 20 100 11/25/23 19:10 98 H 19 100 11/25/23 19:01 158/62 H 11/25/23 19:01 96 H 19 98 11/25/23 19:00 99 H 14 95 Laboratory Results Short CBC 11/25/23 11/26/23 Range/Units 18:41 03:44 WBC 26.59 H D 20.79 H (4.8-10.8) K/ul Hgb 9.9 L 9.2 L (12.0-16.0) g/dl Hct 31.7 L 30.5 L (37.0-47.0) % Plt Count 296 248 (130-400) K/uL BMP 11/25/23 11/25/23 11/26/23 18:41 19:54 03:44 Sodium 134 L 136 Potassium TNP 4.5 4.3 Chloride 100 102 Carbon Dioxide 27 26 BUN 34 H 40 H Creatinine 2.43 H D 2.54 H Glucose 119 H 117 H Calcium 8.0 L 7.9 L Liver Function 11/25/23 11/25/23 Range/Units 18:41 19:54 Total Bilirubin 0.8 (0.2-1.0) mg/dl AST TNP 24 ALT 15 (7-52) U/L Alkaline Phosphatase 69 (34-104) U/L Albumin 2.9 L (3.4-5.0) gm/dl Medications Administered Home Medications Medication Instructions Recorded Confirmed Last Taken aspirin 81 mg tablet,delayed 81 mg PO DAILY 09/20/23 11/20/23 11/19/23 release atorvastatin 20 mg tablet 20 mg PO DAILY 09/20/23 11/20/23 11/19/23 baclofen 10 mg tablet 10 mg PO BID PRN Muscle Spasm 09/20/23 11/20/23 Unknown clonazepam 0.5 mg tablet 0.5 mg PO BID 09/20/23 11/20/23 11/19/23 clopidogrel 75 mg tablet 75 mg PO DAILY 09/20/23 11/20/23 11/19/23 duloxetine 60 mg capsule,delayed See Rx Instructions .Route .COMPLEX 09/20/23 11/20/23 11/19/23 release furosemide 40 mg tablet 60 mg PO BID 09/20/23 11/20/23 11/19/23 gabapentin 300 mg capsule 600 mg PO TID 09/20/23 11/20/23 11/19/23 insulin aspart U-100 100 unit/mL 8 unit subcut UD 09/20/23 11/20/23 11/19/23 (3 mL) subcutaneous pen (Novolog FlexPen U-100 Insulin aspart) insulin degludec 100 unit/mL (3 50 unit subcut HS 09/20/23 11/20/23 11/19/23 mL) subcutaneous pen (Tresiba FlexTouch U-100 insulin) levothyroxine 200 mcg tablet See Rx Instructions .Route .COMPLEX 09/20/23 11/20/23 11/19/23 levothyroxine 50 mcg tablet See Rx Instructions .Route .COMPLEX 09/20/23 11/20/23 11/19/23 magnesium oxide 400 mg (241.3 mg 400 mg PO BID 09/20/23 11/20/23 11/19/23 magnesium) tablet omeprazole 20 mg capsule,delayed 20 mg PO DAILY 09/20/23 11/20/23 11/19/23 release oxycodone 5 mg tablet 5 mg PO Q6H PRN Pain 09/20/23 11/20/23 Unknown potassium chloride 20 mEq 20 meq PO BID 09/20/23 11/20/23 11/19/23 tablet,extended release(part/cryst) ropinirole 2 mg tablet 2 mg PO HS 09/20/23 11/20/23 11/19/23 sennosides 8.6 mg-docusate sodium 1 tab PO BID 09/20/23 11/20/23 11/19/23 50 mg tablet (Senna-Time S) tirzepatide 5 mg/0.5 mL 5 mg subcut WK 09/20/23 11/20/23 11/16/23 subcutaneous pen injector (Kevan) tramadol 50 mg tablet 50 mg PO TID PRN Pain 09/20/23 11/20/23 Unknown trazodone 100 mg tablet 100 mg PO HS 09/20/23 11/20/23 11/19/23 Vit D3 1000iu 200+50 Softge 1 tab PO QAM 10/24/23 11/20/23 11/19/23 apixaban 2.5 mg tablet (Eliquis) 2.5 mg PO BID 10/24/23 11/20/23 11/19/23 dicyclomine 20 mg tablet 20 mg PO QID PRN abdominal cramping 10/24/23 11/20/23 Unknown duloxetine 30 mg capsule,delayed See Rx Instructions .Route .COMPLEX 10/24/23 11/20/23 11/19/23 release triamcinolone acetonide 0.5 % 1 applic topical BID PRN chest rash 10/24/23 11/20/23 Unknown topical cream Active Medications Generic Name Dose Route Start Last Admin Trade Name Jose PRN Reason Stop Dose Admin Acetaminophen 650 mg 11/21/23 00:54 11/25/23 08:11 Acetaminophen 325 Mg Tab PO 12/21/23 00:53 650 mg QID PRN Administration pain/fever Apixaban 2.5 mg 11/20/23 21:00 11/25/23 09:29 Apixaban 2.5 Mg Tab PO 12/20/23 20:59 2.5 mg BID ROBERT Administration Aspirin 81 mg 11/21/23 09:00 11/25/23 09:29 Aspirin 81 Mg Ectab PO 12/21/23 08:59 81 mg DAILY ROBERT Administration Atorvastatin Calcium 20 mg 11/21/23 09:00 11/25/23 09:29 Atorvastatin 20 Mg Tab PO 12/21/23 08:59 20 mg DAILY ROBERT Administration Baclofen 10 mg 11/20/23 16:25 11/20/23 21:10 Baclofen 10 Mg Tab PO 12/20/23 16:24 10 mg BID PRN Administration Muscle Spasm Clopidogrel Bisulfate 75 mg 11/21/23 09:00 11/25/23 09:29 Clopidogrel Bisulfate 75 Mg Tab PO 12/21/23 08:59 75 mg DAILY ROBERT Administration Diclofenac Sodium 2 gm 11/23/23 13:45 11/26/23 05:30 Diclofenac Sod 1% Gel 100 Gm Tube EXT 12/23/23 13:44 2 gm Q6 ROBERT Administration Protocol Dicyclomine HCl 20 mg 11/20/23 16:25 11/21/23 11:59 Dicyclomine Hcl 20 Mg Tab PO 12/20/23 16:24 20 mg QID PRN Administration abdominal cramping Duloxetine HCl 60 mg 11/20/23 17:00 11/25/23 09:28 Duloxetine Hcl 60 Mg Cap PO 12/20/23 16:59 60 mg DAILY ROBERT Administration Duloxetine HCl 30 mg 11/20/23 17:00 11/25/23 09:29 Duloxetine Hcl 30 Mg Cap PO 12/20/23 16:59 30 mg DAILY ROBERT Administration Gabapentin 600 mg 11/20/23 21:00 11/25/23 17:00 Gabapentin 600 Mg Tab PO 12/20/23 20:59 Not Given TID ROBERT Piperacillin Sod/Tazobactam 100 mls @ 25 mls/hr 11/25/23 06:00 11/26/23 05:30 Sod 4.5 gm/ Dextrose IV 12/05/23 05:59 25 mls/hr Q8H ROBERT Administration Protocol Vancomycin HCl 1,000 mg/ 270 mls @ 200 mls/hr 11/25/23 20:00 11/25/23 21:41 Sodium Chloride IV 12/05/23 19:59 Infused Q24H ROBERT Infusion Norepinephrine Bitartrate 4 mg in 250 mls @ 47.25 mls/hr 11/26/23 03:30 11/26/23 06:38 Levophed/D5w IV 12/26/23 03:29 0.1 mcg/kg/min .Q5H18M ROBERT 47.3 mls/hr Titration Protocol 0.1 MCG/KG/MIN Insulin Aspart 0 units 11/25/23 00:00 11/26/23 05:30 Insulin Aspart Per Unit Charge SC 12/25/23 00:00 Not Given Q6 ROBERT Insulin Glargine 0 units 11/24/23 21:00 11/25/23 08:11 Lantus Per Unit Charge SQ 12/20/23 20:59 30 units BID ROBERT Administration Protocol Levothyroxine Sodium 50 mcg 11/20/23 17:00 11/26/23 05:54 Levothyroxine Sodium 50 Mcg Tablet PO 12/20/23 16:59 50 mcg DAILYBB ROBERT Administration Levothyroxine Sodium 200 mcg 11/20/23 17:00 11/26/23 05:54 Levothyroxine Sodium 200 Mcg Tablet PO 12/20/23 16:59 200 mcg DAILYBB ROBERT Administration Magnesium Hydroxide 30 ml 11/22/23 17:59 11/23/23 05:25 Magnesium Hydroxide Susp 30 Ml Udc PO 12/22/23 17:58 30 ml Q6H PRN Administration Constipation Magnesium Oxide 400 mg 11/20/23 21:00 11/25/23 09:28 Magnesium Oxide 400 Mg Tab PO 12/20/23 20:59 400 mg BID ROBERT Administration Miscellaneous 1 each 11/25/23 21:00 11/25/23 19:44 Icu Protocol For Hyperglycemia N/A 11/27/23 20:59 Not Given ACHS [facility] Ondansetron HCl 4 mg 11/24/23 20:39 11/24/23 21:21 Ondansetron 4 Mg Od Tab PO 12/24/23 20:38 4 mg Q8H PRN Administration Nausea And Vomiting Pantoprazole Sodium 40 mg 11/21/23 09:00 11/25/23 09:28 Pantoprazole 40 Mg Tab PO 12/21/23 08:59 40 mg DAILY ROBERT Administration Protocol Ropinirole HCl 2 mg 11/20/23 21:00 11/25/23 19:47 Ropinirole Hcl 2 Mg Tablet PO 12/20/23 20:59 Not Given HS ROBERT Senna/Docusate Sodium 1 tab 11/20/23 21:00 11/25/23 19:47 Docusate Sodium/Senna 50/8.6mg Tab PO 12/20/23 20:59 Not Given BID ROBERT Sodium Chloride 2 sprays 11/21/23 00:13 11/21/23 00:58 Sodium Chloride 0.65% Na Soln 45 Ml ([place]) NA 12/21/23 00:12 2 sprays TID PRN Administration Nasal Congestion (5) Chronic respiratory failure Respiratory failure complication: hypoxia Qualified Code(s): J96.11 - Chronic respiratory failure with hypoxia (6) CKD (chronic kidney disease), stage III Chronic kidney disease stage 3 subtype: unspecified whether 3a or 3b Qualified Code(s): N18.30 - Chronic kidney disease, stage 3 unspecified (8) HTN (hypertension) Hypertension type: primary hypertension Qualified Code(s): I10 - Essential (primary) hypertension (9) Hypothyroidism Hypothyroidism type: unspecified Qualified Code(s): E03.9 - Hypothyroidism, unspecified
[2023-11-26 07:10] LABS: T4 Free Thyroxine 1.05 ng/dl (0.61-1.60)
[2023-11-26] MEDS: MIDODRINE HCL 2.5 MG TAB PO SCH (08:10)
--- NOTE | 2023-11-26 08:41 | Urology Progress Note ---
Date of Service November 26, 2023 Assessment & Plan (1) Sepsis secondary to UTI: Plan: S/p right ureteral stent placement on 11/25/2023, ongoing septic picture. Agree with broad-spectrum antibiotics while urine and blood cultures return. Continue supportive care with pressors and fluid resuscitation. No plan for further urologic intervention at this time, would maintain Fernandez catheter and ureteral stent until she is clinically improved. Urology will follow along Admission and Anticipated Discharge Date Admission Date: November 20, 2023 Subjective Feeling tired, slightly confused, not having any pain, tolerating the stent catheter well Admitted to the ICU overnight due to ongoing hypotension, currently requiring pressors Increased leukocytosis s/p ureteral stent placement although now gradually downtrending to (26.5 to 20.79) Creatinine increased to 2.54 this morning, baseline close to 1.5 Urine cultures from 11/24 pending, blood cultures from with no growth at 24 hours. Physical Exam Physical Exam: Ill-appearing, NAD Genitourinary: Fernandez catheter draining clear urine Results & Data Vital Signs (Past 12 Hours) Vital Signs Temp Pulse Resp BP Pulse Ox O2 Del Method O2 Flow Rate 11/26/23 07:57 Nasal Cannula 4 11/26/23 07:55 37.9 C H 11/26/23 07:45 113 H 23 103/59 L 93 11/26/23 07:38 112 H 20 89/61 L 100 11/26/23 07:34 106 H 25 H 80/52 L 87 L 11/26/23 07:19 112 H 27 H 121/61 90 11/26/23 07:00 113 H 23 91/69 L 94 11/26/23 06:15 84/52 L 11/26/23 06:15 98 H 23 97 11/26/23 06:01 37.1 C 11/26/23 06:00 106 H 26 H 97 11/26/23 06:00 91/53 L 11/26/23 05:51 98 H 23 98 11/26/23 05:45 81/46 L 11/26/23 05:45 104 H 24 94 11/26/23 05:30 60/39 L 11/26/23 05:30 103 H 26 H 92 11/26/23 05:15 71/57 L 11/26/23 05:15 102 H 21 93 11/26/23 05:00 82/47 L 11/26/23 05:00 102 H 21 92 11/26/23 04:45 84/60 L 11/26/23 04:45 101 H 25 H 91 11/26/23 04:31 101 H 19 89 L 11/26/23 04:31 82/52 L 11/26/23 04:30 102 H 16 91 11/26/23 04:18 94/50 L 11/26/23 04:18 97 H 17 96 11/26/23 04:16 70/43 L 11/26/23 04:16 95 H 19 96 11/26/23 04:15 93 H 18 97 11/26/23 04:10 96 H 17 95 11/26/23 04:10 85/47 L 11/26/23 04:00 105/54 L 11/26/23 04:00 93 H 17 96 11/26/23 03:45 105/47 L 11/26/23 03:45 93 H 21 93 11/26/23 03:30 88/43 L 11/26/23 03:30 93 H 20 95 11/26/23 03:23 74/38 L 11/26/23 03:23 98 H 20 95 11/26/23 03:20 97 H 21 96 11/26/23 03:20 65/26 L 11/26/23 03:17 64/36 L 11/26/23 03:17 95 H 26 H 95 11/26/23 03:16 95 H 22 97 11/26/23 03:16 64/32 L 11/26/23 03:15 96 H 20 98 11/26/23 03:00 88/48 L 11/26/23 03:00 100 H 21 98 11/26/23 02:58 85/33 L 11/26/23 02:58 101 H 16 98 11/26/23 02:56 68/36 L 11/26/23 02:56 102 H 19 99 11/26/23 02:51 79/45 L 11/26/23 02:51 103 H 24 95 11/26/23 02:48 49/22 L 11/26/23 02:48 103 H 16 99 11/26/23 02:47 53/32 L 11/26/23 02:47 104 H 26 H 99 11/26/23 02:45 104 H 20 99 11/26/23 02:33 81/37 L 11/26/23 02:33 108 H 18 99 11/26/23 02:32 65/38 L 11/26/23 02:32 109 H 19 98 11/26/23 02:30 60/41 L 11/26/23 02:30 110 H 17 98 11/26/23 02:16 108 H 21 94 11/26/23 02:16 93/43 L 11/26/23 02:15 108 H 29 H 98 11/26/23 02:02 106 H 15 96 11/26/23 02:02 109/40 L 11/26/23 02:00 79/60 L 11/26/23 02:00 106 H 19 96 11/26/23 01:48 82/68 L 11/26/23 01:48 107 H 23 93 11/26/23 01:47 108 H 21 95 11/26/23 01:46 108 H 24 89 L 11/26/23 01:46 74/60 L 11/26/23 01:45 108 H 16 98 11/26/23 01:30 105 H 23 100 11/26/23 01:30 114/82 11/26/23 01:22 100 H 11/26/23 01:20 100 H 22 100 11/26/23 01:15 111/85 11/26/23 01:15 105 H 24 99 11/26/23 01:00 119/61 11/26/23 01:00 102 H 23 100 11/26/23 00:45 106/73 11/26/23 00:45 101 H 23 100 11/26/23 00:30 105/59 L 11/26/23 00:30 100 H 22 100 11/26/23 00:16 101 H 22 100 11/26/23 00:16 126/53 L 11/26/23 00:15 101 H 21 100 11/26/23 00:01 102 H 21 97 11/26/23 00:01 124/42 L 11/26/23 00:00 103 H 21 97 11/25/23 23:47 36.7 C 11/25/23 23:45 117/66 11/25/23 23:45 102 H 18 100 11/25/23 23:30 102/66 11/25/23 23:30 97 H 21 98 11/25/23 23:15 84/59 L 11/25/23 23:15 97 H 21 99 11/25/23 23:00 99/65 L 11/25/23 23:00 96 H 21 100 11/25/23 22:45 101 H 22 96 11/25/23 22:45 96/53 L 11/25/23 22:30 95/77 L 11/25/23 22:30 99 H 21 99 11/25/23 22:15 81/66 L 11/25/23 22:15 99 H 26 H 99 11/25/23 22:00 101/79 11/25/23 22:00 103 H 21 97 11/25/23 21:45 113/55 L 11/25/23 21:45 98 H 21 94 11/25/23 21:30 97 H 23 92 11/25/23 21:30 123/54 L 11/25/23 21:15 97 H 22 93 11/25/23 21:15 105/50 L 11/25/23 21:00 126/52 L 11/25/23 21:00 99 H 21 97 11/25/23 20:46 106/63 11/25/23 20:46 98 H 28 H 96 11/25/23 20:45 101 H 21 100 FiO2 11/26/23 07:57 11/26/23 07:55 11/26/23 07:45 11/26/23 07:38 11/26/23 07:34 11/26/23 07:19 11/26/23 07:00 11/26/23 06:15 11/26/23 06:15 11/26/23 06:01 11/26/23 06:00 11/26/23 06:00 11/26/23 05:51 45 11/26/23 05:45 11/26/23 05:45 11/26/23 05:30 11/26/23 05:30 11/26/23 05:15 11/26/23 05:15 11/26/23 05:00 11/26/23 05:00 11/26/23 04:45 11/26/23 04:45 11/26/23 04:31 11/26/23 04:31 11/26/23 04:30 11/26/23 04:18 11/26/23 04:18 11/26/23 04:16 11/26/23 04:16 11/26/23 04:15 11/26/23 04:10 11/26/23 04:10 11/26/23 04:00 11/26/23 04:00 11/26/23 03:45 11/26/23 03:45 11/26/23 03:30 11/26/23 03:30 11/26/23 03:23 11/26/23 03:23 11/26/23 03:20 11/26/23 03:20 11/26/23 03:17 11/26/23 03:17 11/26/23 03:16 11/26/23 03:16 11/26/23 03:15 11/26/23 03:00 11/26/23 03:00 11/26/23 02:58 11/26/23 02:58 11/26/23 02:56 11/26/23 02:56 11/26/23 02:51 11/26/23 02:51 11/26/23 02:48 11/26/23 02:48 11/26/23 02:47 11/26/23 02:47 11/26/23 02:45 11/26/23 02:33 11/26/23 02:33 11/26/23 02:32 11/26/23 02:32 11/26/23 02:30 11/26/23 02:30 11/26/23 02:16 11/26/23 02:16 11/26/23 02:15 11/26/23 02:02 11/26/23 02:02 11/26/23 02:00 11/26/23 02:00 11/26/23 01:48 11/26/23 01:48 11/26/23 01:47 11/26/23 01:46 11/26/23 01:46 11/26/23 01:45 11/26/23 01:30 11/26/23 01:30 11/26/23 01:22 11/26/23 01:20 45 11/26/23 01:15 11/26/23 01:15 11/26/23 01:00 11/26/23 01:00 11/26/23 00:45 11/26/23 00:45 11/26/23 00:30 11/26/23 00:30 11/26/23 00:16 11/26/23 00:16 11/26/23 00:15 11/26/23 00:01 11/26/23 00:01 11/26/23 00:00 11/25/23 23:47 11/25/23 23:45 11/25/23 23:45 11/25/23 23:30 11/25/23 23:30 11/25/23 23:15 11/25/23 23:15 11/25/23 23:00 11/25/23 23:00 11/25/23 22:45 11/25/23 22:45 11/25/23 22:30 11/25/23 22:30 11/25/23 22:15 11/25/23 22:15 11/25/23 22:00 11/25/23 22:00 11/25/23 21:45 11/25/23 21:45 11/25/23 21:30 11/25/23 21:30 11/25/23 21:15 11/25/23 21:15 11/25/23 21:00 11/25/23 21:00 11/25/23 20:46 11/25/23 20:46 11/25/23 20:45 PG Care Time/CCT Total # of Minutes Spent Total Time Spent with Patient: Total time spent is greater than 50% in coordination of care (as documented) at patient's floor/unit and/or counseling patient: Coding Level of Care Code 03295 SUB INP/OBS CARE 10/20MIN Diagnoses Sepsis secondary to UTI A41.9; N39.0
[2023-11-26 09:08] LABS: Total Protein Urine Random 105.6 mg/dl (0-11.9); Urine Potassium 54.5 mmol/L
[2023-11-26 09:13] LABS: Creatinine Urine Random 57.5 mg/dl; Protein Creatinine Ratio Urine 1.8 (0-0.2)
--- NOTE | 2023-11-26 09:20 | Critical Care Progress Note ---
Date of Service November 26, 2023 Assessment & Plan (1) Acute CHF: (2) Transient hypotension: (3) Sepsis secondary to UTI: (4) Septic shock: (5) Polypharmacy: Plan 68-year-old female with history of morbid obesity, ELISSA on CPAP, chronic hypoxic respiratory failure and CKD stage III who presented to the ICU after having a transient episode of postoperative hypotension due to placement of a J stent for ureteral obstruction. Blood pressures have decreased overnight and she has remained persistently hypotensive likely due to septic shock. Arterial line in place. Will continue to wean Levophed as possible. She received several boluses of crystalloids overnight. Continue vancomycin and Zosyn. De-escalate antibiotics based on cultures from urine and blood. She did have urine cultures from August which grew back Klebsiella oxytoca which were largely pansensitive. Continue BiPAP with sleep and as needed. Wean FiO2 as able. She has a prior history of PE. Hematuria appears resolved. Restart Eliquis 2.5 mg twice daily for history of DVT. She has an IVC filter in place. Will consider restarting Plavix and aspirin tomorrow. Patient on numerous chronic sedating meds including Klonopin, tramadol, oxycodone, gabapentin and baclofen. Will restart at lower doses of gabapentin and Klonopin due to her renal failure. Patient with evidence of worsening creatinine likely due to ischemic ATN from sepsis. Will follow urine output closely. Repeat BMP later today Will monitor hemodynamics and urine output closely while in ICU. CRITICAL CARE TIME - I have personally spent 38 minutes of critical care time in the direct management of this patient. This is a life/limb threatening event. This includes time spent evaluating patient, direct bedside care, chart review, placing orders, interpretation of diagnostic studies, discussion with consultants, patient, and family members, as well as other required patient management activities. This time is exclusive of all separately billable procedures, and teaching time and separate from and in addition to any other critical care service time. Admission and Anticipated Discharge Date Admission Date: November 20, 2023 Subjective Patient's mental status significantly improved today. She she complains of diffuse pain. She has a history of fibromyalgia. She is currently requiring low-dose Levophed. She has an arterial line placed Review of Systems Review of Systems: All systems reviewed & are unremarkable except as noted in HPI & below Physical Exam Physical Exam: Constitutional: Patient appears to be of their stated age. Morbidly obese. Eyes: Pupils are equal round and reactive to light. Conjunctivae are normal. Anicteric sclera. Ears nose, mouth and throat: Mallampati class 2. Normal posterior oropharynx. Uvula is midline. BiPAP mask in place Neck: Trachea is midline. Visual inspection is normal. Respiratory: Mild crackles bilaterally. Cardiovascular: Regular rate and rhythm. No murmurs. No edema. Gastrointestinal: Normal bowel sounds, soft, nontender and nondistended. No hepatosplenomegaly noted. Musculoskeletal: No cyanosis. Patient is able to move all extremities. Strength is 5 out of 5 in the upper and lower extremities. Skin: No rashes, warm dry and intact. Neurologic: No obvious focal neurological deficits seen. Psychiatric: Alert and oriented x3 with a euthymic affect. Results & Data Results & Data Vital Signs (Past 12 Hours) Vital Signs Temp Pulse Resp BP Pulse Ox O2 Del Method O2 Flow Rate 11/26/23 08:40 111 H 11/26/23 07:57 Nasal Cannula 4 11/26/23 07:55 37.9 C H 11/26/23 07:45 113 H 23 103/59 L 93 11/26/23 07:38 112 H 20 89/61 L 100 11/26/23 07:34 106 H 25 H 80/52 L 87 L 11/26/23 07:19 112 H 27 H 121/61 90 11/26/23 07:00 113 H 23 91/69 L 94 11/26/23 06:15 84/52 L 11/26/23 06:15 98 H 23 97 11/26/23 06:01 37.1 C 11/26/23 06:00 106 H 26 H 97 11/26/23 06:00 91/53 L 11/26/23 05:51 98 H 23 98 11/26/23 05:45 81/46 L 11/26/23 05:45 104 H 24 94 11/26/23 05:30 60/39 L 11/26/23 05:30 103 H 26 H 92 11/26/23 05:15 71/57 L 11/26/23 05:15 102 H 21 93 11/26/23 05:00 82/47 L 11/26/23 05:00 102 H 21 92 11/26/23 04:45 84/60 L 11/26/23 04:45 101 H 25 H 91 11/26/23 04:31 101 H 19 89 L 11/26/23 04:31 82/52 L 11/26/23 04:30 102 H 16 91 11/26/23 04:18 94/50 L 11/26/23 04:18 97 H 17 96 11/26/23 04:16 70/43 L 11/26/23 04:16 95 H 19 96 11/26/23 04:15 93 H 18 97 11/26/23 04:10 96 H 17 95 11/26/23 04:10 85/47 L 11/26/23 04:00 105/54 L 11/26/23 04:00 93 H 17 96 11/26/23 03:45 105/47 L 11/26/23 03:45 93 H 21 93 11/26/23 03:30 88/43 L 11/26/23 03:30 93 H 20 95 11/26/23 03:23 74/38 L 11/26/23 03:23 98 H 20 95 11/26/23 03:20 97 H 21 96 11/26/23 03:20 65/26 L 11/26/23 03:17 64/36 L 11/26/23 03:17 95 H 26 H 95 11/26/23 03:16 95 H 22 97 11/26/23 03:16 64/32 L 11/26/23 03:15 96 H 20 98 11/26/23 03:00 88/48 L 11/26/23 03:00 100 H 21 98 11/26/23 02:58 85/33 L 11/26/23 02:58 101 H 16 98 11/26/23 02:56 68/36 L 11/26/23 02:56 102 H 19 99 11/26/23 02:51 79/45 L 11/26/23 02:51 103 H 24 95 11/26/23 02:48 49/22 L 11/26/23 02:48 103 H 16 99 11/26/23 02:47 53/32 L 11/26/23 02:47 104 H 26 H 99 11/26/23 02:45 104 H 20 99 11/26/23 02:33 81/37 L 11/26/23 02:33 108 H 18 99 11/26/23 02:32 65/38 L 11/26/23 02:32 109 H 19 98 11/26/23 02:30 60/41 L 11/26/23 02:30 110 H 17 98 11/26/23 02:16 108 H 21 94 11/26/23 02:16 93/43 L 11/26/23 02:15 108 H 29 H 98 11/26/23 02:02 106 H 15 96 11/26/23 02:02 109/40 L 11/26/23 02:00 79/60 L 11/26/23 02:00 106 H 19 96 11/26/23 01:48 82/68 L 11/26/23 01:48 107 H 23 93 11/26/23 01:47 108 H 21 95 11/26/23 01:46 108 H 24 89 L 11/26/23 01:46 74/60 L 11/26/23 01:45 108 H 16 98 11/26/23 01:30 105 H 23 100 11/26/23 01:30 114/82 11/26/23 01:22 100 H 11/26/23 01:20 100 H 22 100 11/26/23 01:15 111/85 11/26/23 01:15 105 H 24 99 11/26/23 01:00 119/61 11/26/23 01:00 102 H 23 100 11/26/23 00:45 106/73 11/26/23 00:45 101 H 23 100 11/26/23 00:30 105/59 L 11/26/23 00:30 100 H 22 100 11/26/23 00:16 101 H 22 100 11/26/23 00:16 126/53 L 11/26/23 00:15 101 H 21 100 11/26/23 00:01 102 H 21 97 11/26/23 00:01 124/42 L 11/26/23 00:00 103 H 21 97 11/25/23 23:47 36.7 C 11/25/23 23:45 117/66 11/25/23 23:45 102 H 18 100 11/25/23 23:30 102/66 11/25/23 23:30 97 H 21 98 11/25/23 23:15 84/59 L 11/25/23 23:15 97 H 21 99 11/25/23 23:00 99/65 L 11/25/23 23:00 96 H 21 100 11/25/23 22:45 101 H 22 96 11/25/23 22:45 96/53 L 11/25/23 22:30 95/77 L 11/25/23 22:30 99 H 21 99 11/25/23 22:15 81/66 L 11/25/23 22:15 99 H 26 H 99 11/25/23 22:00 101/79 11/25/23 22:00 103 H 21 97 11/25/23 21:45 113/55 L 11/25/23 21:45 98 H 21 94 11/25/23 21:30 97 H 23 92 11/25/23 21:30 123/54 L FiO2 11/26/23 08:40 11/26/23 07:57 11/26/23 07:55 11/26/23 07:45 11/26/23 07:38 11/26/23 07:34 11/26/23 07:19 11/26/23 07:00 11/26/23 06:15 11/26/23 06:15 11/26/23 06:01 11/26/23 06:00 11/26/23 06:00 11/26/23 05:51 45 11/26/23 05:45 11/26/23 05:45 11/26/23 05:30 11/26/23 05:30 11/26/23 05:15 11/26/23 05:15 11/26/23 05:00 11/26/23 05:00 11/26/23 04:45 11/26/23 04:45 11/26/23 04:31 11/26/23 04:31 11/26/23 04:30 11/26/23 04:18 11/26/23 04:18 11/26/23 04:16 11/26/23 04:16 11/26/23 04:15 11/26/23 04:10 11/26/23 04:10 11/26/23 04:00 11/26/23 04:00 11/26/23 03:45 11/26/23 03:45 11/26/23 03:30 11/26/23 03:30 11/26/23 03:23 11/26/23 03:23 11/26/23 03:20 11/26/23 03:20 11/26/23 03:17 11/26/23 03:17 11/26/23 03:16 11/26/23 03:16 11/26/23 03:15 11/26/23 03:00 11/26/23 03:00 11/26/23 02:58 11/26/23 02:58 11/26/23 02:56 11/26/23 02:56 11/26/23 02:51 11/26/23 02:51 11/26/23 02:48 11/26/23 02:48 11/26/23 02:47 11/26/23 02:47 11/26/23 02:45 11/26/23 02:33 11/26/23 02:33 11/26/23 02:32 11/26/23 02:32 11/26/23 02:30 11/26/23 02:30 11/26/23 02:16 11/26/23 02:16 11/26/23 02:15 11/26/23 02:02 11/26/23 02:02 11/26/23 02:00 11/26/23 02:00 11/26/23 01:48 11/26/23 01:48 11/26/23 01:47 11/26/23 01:46 11/26/23 01:46 11/26/23 01:45 11/26/23 01:30 11/26/23 01:30 11/26/23 01:22 11/26/23 01:20 45 11/26/23 01:15 11/26/23 01:15 11/26/23 01:00 11/26/23 01:00 11/26/23 00:45 11/26/23 00:45 11/26/23 00:30 11/26/23 00:30 11/26/23 00:16 11/26/23 00:16 11/26/23 00:15 11/26/23 00:01 11/26/23 00:01 11/26/23 00:00 11/25/23 23:47 11/25/23 23:45 11/25/23 23:45 11/25/23 23:30 11/25/23 23:30 11/25/23 23:15 11/25/23 23:15 11/25/23 23:00 11/25/23 23:00 11/25/23 22:45 11/25/23 22:45 11/25/23 22:30 11/25/23 22:30 11/25/23 22:15 11/25/23 22:15 11/25/23 22:00 11/25/23 22:00 11/25/23 21:45 11/25/23 21:45 11/25/23 21:30 11/25/23 21:30 Coding Level of Care Code 79925 CRITICAL CARE 1ST 30-74M Diagnoses Acute CHF I50.9 Transient hypotension I95.9 Sepsis secondary to UTI A41.9; N39.0 Septic shock A41.9; R65.21 Polypharmacy Z79.899
[2023-11-26] MEDS: PHENTOLAMINE MESYLATE SQ ONE (10:23)
[2023-11-26] MEDS: LANTUS PER UNIT CHARGE SQ SCH (10:47)
[2023-11-26] MEDS: NITROGLYCERIN 2% OINTMENT 30GM TUBE EXT ONE (10:47)
--- NOTE | 2023-11-26 10:51 | Procedure Note ---
Procedure Note Date of Service November 26, 2023 Note INTERNAL JUGULAR CENTRAL LINE PROCEDURE NOTE: Procedure: Internal Jugular Central Line Placement Indication: Central Drug Administration, Poor Venous Access, Multiple Lab Draws Necessary, etc. Anesthesia: 8 ml Lidocaine 1% Consent was signed and placed on the chart prior to procedure. Indication, risks, and benefits were explained at length. A time-out was completed verifying correct patient, procedure, site, positioning, and implants(s) or special equipment if applicable. Patients right neck was cleansed and draped in the typical sterile fashion using Chloraprep. The Internal Jugular Vein and Carotid Artery were identified using ultrasound. The superficial tissue was anesthetized using 8 mL of 1% lidocaine without epinephrine under direct visualization with the ultrasound. After adequate anesthetization was achieved, the Internal Jugular vein was cannulated under direct ultrasound guidance using an introducer needle on a syringe. Good venous blood return was maintained prior to removal of syringe from introducer needle. Using Seldinger Technique, a guide wire was advanced through the introducer needle without resistance. The introducer needle was removed and ultrasound images were obtained of the guide wire within the Internal Jugular Vein and saved to the patients medical record. A small incision was made in penetrating fashion at the guide wire insertion site utilizing an 11 blade scalpel. The dilator was advanced to the vessel without resistance. The dilator was exchanged for the triple lumen catheter which was advanced into the vessel without resistance. The guide wire was removed intact from the catheter without issue. Claves were placed on each catheter tip with confirmation of good blood flow from each lumen. Each port was easily flushed with sterile saline. The catheter was placed at 6 cm and sutured in place. BioPatch was applied to the catheter and a sterile Tegaderm dressing was applied over the catheter with careful attention to sterility. Patient tolerated procedure well. No immediate complications were met. Postprocedure chest x-ray is pending. Coding CPT Codes Tubes, Drains, and Vasc Access - Tubes, Drains, and Vasc Access: [id number] Place catheter in vein superior or inferior vena cava ([id number]) Tubes, Drains, and Vasc Access - Tubes, Drains, and Vasc Access: [id number] Ultrasound Guidance For Vascular ([id number]) [facility] [place] Procedure Codes (Charges) Tubes, Drains, and Vasc Access Procedure 1: Tubes, Drains, and Vasc Access: [id number] Place catheter in vein superior or inferior vena cava Procedure 2: Tubes, Drains, and Vasc Access: [id number] Ultrasound Guidance For Vascular
--- NOTE | 2023-11-26 10:52 | Communication Note ---
Date of Service: November 26, 2023 Around 10 AM the patient had extravasation of Levophed into her left forearm around the left forearm IV site. She has significant pain. Pulses are intact. There is some evidence of bruising around the site. Phentolamine injection subcutaneously was initiated and nitroglycerin paste will be placed over the site. Every hour neurovascular checks of the left arm will be performed.
[2023-11-26] MEDS: clonazePAM 0.25 MG TAB PO SCH (10:56)
[2023-11-26] MEDS: GABAPENTIN 300 MG CAP PO SCH (10:56)
--- NOTE | 2023-11-26 11:16 | XRay Report ---
XR chest 1V portable HISTORY: 68 years-old Female central line status post placement of a right IJ central venous cathete r. COMPARISON: 11/25/2023 TECHNIQUE: AP view the chest FINDINGS: Cardiac silhouette is enlarged. Pulmonary vascular congestion with interstitial coarsening. Surgical clips project over the midline upper thorax. Right carotid stent graft. Status post placement of a ri ght IJ central venous catheter with the distal tip in expected location of the right brachiocephalic vein. No postprocedural pneumothorax. Mixed interstitial and alveolar opacities are generally unchang ed. Bones appear grossly intact. IMPRESSION: 1. Status post placement of a right IJ central venous catheter. No postprocedural pneumothorax identi fied. 2. Cardiomegaly with unchanged mixed interstitial and alveolar pulmonary opacities. ACT 112: Negative or not required by law. The above report was generated using voice recognition software. It may contain grammatical, syntax o r spelling errors. Electronically signed by: Enrico Gilliland M.D. 11/26/2023 11:15 AM
[2023-11-26] MEDS: HYDROmorphone INJ 0.5 MG/0.5 ML SYR ONE (11:41)
[2023-11-26 11:46] LABS: BUN Creatinine Ratio 16.5 (10-20); Calcium 8.3 mg/dl (8.6-10.3); Creatinine Clr Calc Pharmacy 29.4 ml/min; Est GFR (African American) 22.2 ml/min; Est GFR (Non-African American) 19.2 ml/min; Potassium 4.1 mmol/L (3.5-5.1)
[2023-11-26] MEDS: HYDROmorphone INJ 0.5 MG/0.5 ML SYR IV STA (11:49)
--- NOTE | 2023-11-26 12:10 | Pharmacy Report ---
Pharmacy Glycemic Short Note 2 - Date of Service November 26, 2023 - Glycemic Short BSG Results (Last 24 hours): 11/25/23 11/25/23 11/25/23 12:09 12:54 17:55 Glucose POC Glucose 115 H 125 H 125 H 11/25/23 11/25/23 11/25/23 18:41 19:43 23:44 Glucose 119 H POC Glucose 94 100 H 11/26/23 11/26/23 11/26/23 03:44 05:26 08:10 Glucose 117 H POC Glucose 116 H 120 H 11/26/23 11/26/23 11:15 11:54 Glucose 164 H POC Glucose 157 H OUTPATIENT ANTIDIABETIC REGIMEN: * Tresiba 50 units SQ HS * Novolog 8 units SQ breakfast/lunch, 10 units dinner * tirzepatide 5mg SQ weekly HbA1C: 7.5% (11/20/23) ASSESSMENT: 11/26/23: * Patient decompensated and transferred to ICU yesterday, NPO, received 31 units of insulin yesterday, 30 units basal. * Patient remains in ICU today, NPO, will give reduced dose of basal, 25 units SC Daily, will titrate back up as patient improves, diet resumes etc. 11/24/23: * BSGs ranging 110-181 mg/dL yesterday w/ elevated fasting BSG this morning of 199 mg/dL * Received 88 units of insulin (50 units of basal and 38 units of prandial/correctional bolus) * Will increase basal and tighten carb ratio 11/22/23: * Patient received 57 units of insulin yesterday (35 units of basal and 22 units of prandial/correctional bolus) * Prior inpatient glycemic data suggests current regimen could be intensified - anticipate increase in basal and tightening of Novolog parameters today * Basal scale slightly adjusted and carb ratio tightened with lunch 11/21/23: * Pt is a 68 year old female known to the glycemic pharmacy service admitted with ambulatory dysfunction. History of DM2. Pharmacy consulted to assist with inpatient glycemic management. * BSGs 55-106-276hn/dL since admission. Received 15 units of Lantus last night and no bolus insulin. * Ordered a diet, other stressors stable. * Lantus 15 units again this AM (fasting BSG within goal range and decreased PO yesterday). Will plan for an HS Lantus scale tonight depending on BSG. Novolog moderate stress scale for now. PLAN FOR INPATIENT GLYCEMIC CONTROL: * Basal insulin * Lantus 25 SC QAM * Bolus insulin * NovoLog per scale ACHS or Q6hrs while NPO * Goal Range: Low 110 mg/dL - High 140 mg/dL * Correction Factor: 20 mg/dL/unit * Nutritional / Prandial insulin per carb ratio of 1 unit per 5 grams CHO consumed
--- NOTE | 2023-11-26 13:22 | Nephrology Consultation ---
Date of Consultation November 26, 2023 Assessment & Plan (1) Septic shock: continue vancomycin and zosyn; continue pressor support as needed; has already had adequate crystalloid resuscitation (2) Sepsis secondary to UTI: as above (3) Acute on chronic kidney failure: Stage 1 nonoliguric ELSIE from ischemic ATN in the setting of septic shock baseline creatinine about 1.6; up to 2.4-2.5 in the wake of stenting and septic shock proteinuria and hematuria not meaningful in current state after instrumentation >dose vanco if at all possible by level chemistries and volume status acceptable >continue close monitoring of hemodynamics and urine output Care coordinated w/ Dr Gamboa History of Present Illness Reason for Consultation: ELSIE on CKD s/p stenting, volume issues Requesting Physician: Dr Adorno Attending Physician: Keya Adorno MD History of Present Illness 68 y/o F whom I'm asked to see for ELSIE on CKD and volume management was admitted to the ICU yesterday with septic shock from UTI after R stenting procedure yesterday in an effort to better control her infection; admitted here originally 11/20 after a fall at home w/ resultant severe BL knee pain w/ ambulation. PMH includes CKD 3b w/ baseline creatinine around 1.7, IDDM, HFpEF, HTN, PVD, HLOSA on CPAP and with chronic hypoxic respiratory failure d/t presumed ILD on 4L 02NC at home, PE on eliquis and s/p IVC filter, hx of HIT, s/p 09/17/23 R carotid artery repair [facility] c/b bleeding; R subclavian stenosis, class 3 obesity, FMA, RLS, chronic ambulatory dysfunction / walker dependent, OA, remote R colon perforation from complicated diverticulitis s/p partial colectomy/-ostomy w/ reversal c/b incisional hernias; also s/p thyroidectomy. Orthopedics evaluated both knees and does not feel that either is actively infected. Admitted here recently 10/24-10/28 for weakness and diarrhea w/ rehab stay recommended but refused by pt d/t concern for her pet cats. Also admitted here 09/20-10/02/23 for Klebsiella oxytoca pyelonephritis and bacteremia, treated w/ ceftriaxone then cipro for 14 days per ID recs and c/b ELSIE from ischemic ATN w/ peak creatinine 2.4, d/c creat 1.5. Today her creatinine is 2.5, up from 1.9 yesterday AM and 1.6 at 11/20 admission. she has made 985 mL urine today so far and is 4.4L + today so far and 6.6L+ on the admission. since the procedure early yesterday afternoon she has received 1.5L NS, 2L plasmalyte, in addition to being on levophed; also on zosyn and vancomycin. blood cultures were negative; a urine culture yesterday in OR is growing GNR. She c/o chills and generalized body aches. no n, no flank pain or abdominal tenderness. no orthopnea or dyspnea; no cough. no rash. Allergies Allergy/AdvReac Type Severity Reaction Status Date / Time morphine Allergy Severe Swelling, Verified 11/20/23 10:52 "Violent reaction- almost " dapagliflozin [From Farxiga] Allergy Intermediate Yeast Verified 11/20/23 10:52 infections tetanus toxoid, adsorbed Allergy Intermediate Passed Verified 11/20/23 10:52 out, "got sick" as child bupropion [From Wellbutrin] AdvReac Intermediate Recurrent Verified 11/20/23 10:52 falls as per patient codeine AdvReac Intermediate Hallucinati Verified 11/20/23 10:52 ons empagliflozin AdvReac Intermediate Yeast Verified 11/20/23 10:52 [From Jardiance] infections heparin AdvReac Intermediate HIT, Verified 11/20/23 10:52 "Fluid in lungs" hydrocodone [From Vicodin] AdvReac Intermediate Drowsy Verified 11/20/23 10:52 Home Medications Medication Instructions Recorded Confirmed Type aspirin 81 mg tablet,delayed 81 mg PO DAILY 09/20/23 11/20/23 History release atorvastatin 20 mg tablet 20 mg PO DAILY 09/20/23 11/20/23 History baclofen 10 mg tablet 10 mg PO BID PRN Muscle Spasm 09/20/23 11/20/23 History clonazepam 0.5 mg tablet 0.5 mg PO BID 09/20/23 11/20/23 History clopidogrel 75 mg tablet 75 mg PO DAILY 09/20/23 11/20/23 History duloxetine 60 mg capsule,delayed See Rx Instructions .Route .COMPLEX 09/20/23 11/20/23 History release furosemide 40 mg tablet 60 mg PO BID 09/20/23 11/20/23 History gabapentin 300 mg capsule 600 mg PO TID 09/20/23 11/20/23 History insulin aspart U-100 100 unit/mL 8 unit subcut UD 09/20/23 11/20/23 History (3 mL) subcutaneous pen (Novolog FlexPen U-100 Insulin aspart) insulin degludec 100 unit/mL (3 50 unit subcut HS 09/20/23 11/20/23 History mL) subcutaneous pen (Tresiba FlexTouch U-100 insulin) levothyroxine 200 mcg tablet See Rx Instructions .Route .COMPLEX 09/20/23 11/20/23 History levothyroxine 50 mcg tablet See Rx Instructions .Route .COMPLEX 09/20/23 11/20/23 History magnesium oxide 400 mg (241.3 mg 400 mg PO BID 09/20/23 11/20/23 History magnesium) tablet omeprazole 20 mg capsule,delayed 20 mg PO DAILY 09/20/23 11/20/23 History release oxycodone 5 mg tablet 5 mg PO Q6H PRN Pain 09/20/23 11/20/23 History potassium chloride 20 mEq 20 meq PO BID 09/20/23 11/20/23 History tablet,extended release(part/cryst) ropinirole 2 mg tablet 2 mg PO HS 09/20/23 11/20/23 History sennosides 8.6 mg-docusate sodium 1 tab PO BID 09/20/23 11/20/23 History 50 mg tablet (Senna-Time S) tirzepatide 5 mg/0.5 mL 5 mg subcut WK 09/20/23 11/20/23 History subcutaneous pen injector (Kevan) tramadol 50 mg tablet 50 mg PO TID PRN Pain 09/20/23 11/20/23 History trazodone 100 mg tablet 100 mg PO HS 09/20/23 11/20/23 History Vit D3 1000iu 200+50 Softge 1 tab PO QAM 10/24/23 11/20/23 History apixaban 2.5 mg tablet (Eliquis) 2.5 mg PO BID 10/24/23 11/20/23 History dicyclomine 20 mg tablet 20 mg PO QID PRN abdominal cramping 10/24/23 11/20/23 History duloxetine 30 mg capsule,delayed See Rx Instructions .Route .COMPLEX 10/24/23 11/20/23 History release triamcinolone acetonide 0.5 % 1 applic topical BID PRN chest rash 10/24/23 11/20/23 History topical cream Patient History Medical History Septic shock Sepsis secondary to UTI Transient hypotension UTI due to Klebsiella species Hypotension Acute pyelonephritis Hypomagnesemia Mitral valve stenosis Echo 06/2023: Borderline mild mitral stenosis secondary to severe mitral annular calcification Chronic hypoxemic respiratory failure Cataract, bilateral Lumbago with sciatica Lower extremity pain, bilateral Neuropathy feet On home oxygen therapy 3L continuous CHF (congestive heart failure) Follows with Dr. Woodall Subclavian artery stenosis Cerebrovascular duplex study 06/2023: Retrograde flow in the right vertebral artery. 50-69% proximal right subclavian artery stenosis. Antegrade flow in the left vertebral artery. Normal flow in the left subclavian artery. Carotid stenosis, right Cerebrovascular duplex 07/11/23: 80-99% R ICA stenosis. No hemodynamically significant stenosis in the LICA. Diabetes mellitus, type II CKD (chronic kidney disease), stage III Follows with [facility] ELISSA on CPAP CPAP + 3L O2 (O2 is continuous) HTN (hypertension) HLD (hyperlipidemia) Morbid obesity HIT (heparin-induced thrombocytopenia) 2008, [facility] then life flight to [place] > "resolved" Depression with anxiety Hypothyroidism History of pulmonary embolism 2008 s/p zoraida filter GERD (gastroesophageal reflux disease) RLS (restless legs syndrome) History of DVT (deep vein thrombosis) 2008 (during ICU [place] admission/PNA) Presence of IVC filter 2008 Fibromyalgia Surgical History Family history of reaction to anesthesia Brother/niece- PONV Brother- "wakes up violent" History of colostomy reversal History of tooth extraction History of arthroscopy left ankle History of incisional hernia repair Nausea and vomiting after administration of anesthetic agent History of colonoscopy History of cholecystectomy History of total right knee replacement History of tracheostomy 06/2009 (per [facility] records), secondary to acute respiratory failure in setting of PNA, reversed a few months later History of thyroidectomy, total 2010 History of colon resection secondary to R colon perforation, resected treated with colostomy and eventual reversal in 2008, Dr. Lerma Family History Father , age 74 Lung cancer Mother , age 45 Cirrhosis Social History Smoking Status: Former smoker Tobacco Type: Cigarettes Cigarettes Per Day: 1996; Second Hand Exposure: No; Do You Dip or Chew Tobacco: No; Hx Alcohol Use: No Hx Substance Use: No Preferred Language: Slovenian Communication Ability: Effective Horse Buyer Required: No Beliefs That Will Affect Care: None marital status: Single Current Living Situation: Alone Current Living Situation Comment: Lives by self in apartment How many Children do You have: 0 Feels Safe at Home: Yes Assistive Devices: Oxygen - Continuous, Walker and Other Review of Systems 2 Review of Systems: All systems reviewed & are unremarkable except as noted in HPI & below Physical Exam 2 Constitutional: well developed, well nourished, + acute distress (looks uncomfortable), + ill appearing, + morbidly obese and cooperative Eyes: EOM intact bilaterally ENMT: Ears: no external ear abnormality Nose: no external nose abnormality Mouth: + dry oral mucous membranes Neck: no nuchal rigidity Respiratory: normal respiratory effort Auscultation: + diminished lung sounds Cardiovascular: Rate/Rhythm: + tachycardic Extremities: no edema Gastrointestinal (Abdomen): Inspection/Auscultation: normal bowel sounds P ercussion/Palpation: abdomen soft; abdomen nontender Musculoskeletal: Extremities: strength 5/5 throughout Skin: no rashes, warm and dry Neurologic: milan, fluent speech, no tremor Results & Data Vital Signs (Past 12 Hours) Vital Signs Temp Pulse Resp BP Pulse Ox O2 Del Method O2 Flow Rate 11/26/23 12:16 37.9 C H 11/26/23 12:00 113 H 21 97/55 L 92 11/26/23 11:52 113 H 21 92/55 L 92 11/26/23 11:30 116 H 24 98/45 L 90 11/26/23 11:15 115 H 20 93/55 L 91 11/26/23 11:00 115 H 28 H 108/55 L 89 L 11/26/23 10:54 115 H 20 87/45 L 92 11/26/23 10:30 116 H 24 107/50 L 91 11/26/23 10:23 116 H 20 92/71 L 90 11/26/23 09:58 115 H 15 84/55 L 96 11/26/23 09:31 116 H 30 H 98/63 L 90 11/26/23 09:00 114 H 26 H 81/59 L 93 11/26/23 08:40 111 H 11/26/23 08:30 112 H 25 H 85/58 L 94 11/26/23 08:04 112 H 26 H 94/73 L 95 11/26/23 07:57 Nasal Cannula 4 11/26/23 07:55 37.9 C H 11/26/23 07:45 113 H 23 103/59 L 93 11/26/23 07:38 112 H 20 89/61 L 100 11/26/23 07:34 106 H 25 H 80/52 L 87 L 11/26/23 07:19 112 H 27 H 121/61 90 11/26/23 07:00 113 H 23 91/69 L 94 11/26/23 06:15 84/52 L 11/26/23 06:15 98 H 23 97 11/26/23 06:01 37.1 C 11/26/23 06:00 106 H 26 H 97 11/26/23 06:00 91/53 L 11/26/23 05:51 98 H 23 98 11/26/23 05:45 81/46 L 11/26/23 05:45 104 H 24 94 11/26/23 05:30 60/39 L 11/26/23 05:30 103 H 26 H 92 11/26/23 05:15 71/57 L 11/26/23 05:15 102 H 21 93 11/26/23 05:00 82/47 L 11/26/23 05:00 102 H 21 92 11/26/23 04:45 84/60 L 11/26/23 04:45 101 H 25 H 91 11/26/23 04:31 101 H 19 89 L 11/26/23 04:31 82/52 L 11/26/23 04:30 102 H 16 91 11/26/23 04:18 94/50 L 11/26/23 04:18 97 H 17 96 11/26/23 04:16 70/43 L 11/26/23 04:16 95 H 19 96 11/26/23 04:15 93 H 18 97 11/26/23 04:10 96 H 17 95 11/26/23 04:10 85/47 L 11/26/23 04:00 105/54 L 11/26/23 04:00 93 H 17 96 11/26/23 03:45 105/47 L 11/26/23 03:45 93 H 21 93 11/26/23 03:30 88/43 L 11/26/23 03:30 93 H 20 95 11/26/23 03:23 74/38 L 11/26/23 03:23 98 H 20 95 11/26/23 03:20 97 H 21 96 11/26/23 03:20 65/26 L 11/26/23 03:17 64/36 L 11/26/23 03:17 95 H 26 H 95 11/26/23 03:16 95 H 22 97 11/26/23 03:16 64/32 L 11/26/23 03:15 96 H 20 98 11/26/23 03:00 88/48 L 11/26/23 03:00 100 H 21 98 11/26/23 02:58 85/33 L 11/26/23 02:58 101 H 16 98 11/26/23 02:56 68/36 L 11/26/23 02:56 102 H 19 99 11/26/23 02:51 79/45 L 11/26/23 02:51 103 H 24 95 11/26/23 02:48 49/22 L 11/26/23 02:48 103 H 16 99 11/26/23 02:47 53/32 L 11/26/23 02:47 104 H 26 H 99 11/26/23 02:45 104 H 20 99 11/26/23 02:33 81/37 L 11/26/23 02:33 108 H 18 99 11/26/23 02:32 65/38 L 11/26/23 02:32 109 H 19 98 11/26/23 02:30 60/41 L 11/26/23 02:30 110 H 17 98 11/26/23 02:16 108 H 21 94 11/26/23 02:16 93/43 L 11/26/23 02:15 108 H 29 H 98 11/26/23 02:02 106 H 15 96 11/26/23 02:02 109/40 L 11/26/23 02:00 79/60 L 11/26/23 02:00 106 H 19 96 11/26/23 01:48 82/68 L 11/26/23 01:48 107 H 23 93 11/26/23 01:47 108 H 21 95 11/26/23 01:46 108 H 24 89 L 11/26/23 01:46 74/60 L 11/26/23 01:45 108 H 16 98 11/26/23 01:30 105 H 23 100 11/26/23 01:30 114/82 11/26/23 01:22 100 H 11/26/23 01:20 100 H 22 100 11/26/23 01:15 111/85 11/26/23 01:15 105 H 24 99 11/26/23 01:00 119/61 11/26/23 01:00 102 H 23 100 FiO2 11/26/23 12:16 11/26/23 12:00 11/26/23 11:52 11/26/23 11:30 11/26/23 11:15 11/26/23 11:00 11/26/23 10:54 11/26/23 10:30 11/26/23 10:23 11/26/23 09:58 11/26/23 09:31 11/26/23 09:00 11/26/23 08:40 11/26/23 08:30 11/26/23 08:04 11/26/23 07:57 11/26/23 07:55 11/26/23 07:45 11/26/23 07:38 11/26/23 07:34 11/26/23 07:19 11/26/23 07:00 11/26/23 06:15 11/26/23 06:15 11/26/23 06:01 11/26/23 06:00 11/26/23 06:00 11/26/23 05:51 45 11/26/23 05:45 11/26/23 05:45 11/26/23 05:30 11/26/23 05:30 11/26/23 05:15 11/26/23 05:15 11/26/23 05:00 11/26/23 05:00 11/26/23 04:45 11/26/23 04:45 11/26/23 04:31 11/26/23 04:31 11/26/23 04:30 11/26/23 04:18 11/26/23 04:18 11/26/23 04:16 11/26/23 04:16 11/26/23 04:15 11/26/23 04:10 11/26/23 04:10 11/26/23 04:00 11/26/23 04:00 11/26/23 03:45 11/26/23 03:45 11/26/23 03:30 11/26/23 03:30 11/26/23 03:23 11/26/23 03:23 11/26/23 03:20 11/26/23 03:20 11/26/23 03:17 11/26/23 03:17 11/26/23 03:16 11/26/23 03:16 11/26/23 03:15 11/26/23 03:00 11/26/23 03:00 11/26/23 02:58 11/26/23 02:58 11/26/23 02:56 11/26/23 02:56 11/26/23 02:51 11/26/23 02:51 11/26/23 02:48 11/26/23 02:48 11/26/23 02:47 11/26/23 02:47 11/26/23 02:45 11/26/23 02:33 11/26/23 02:33 11/26/23 02:32 11/26/23 02:32 11/26/23 02:30 11/26/23 02:30 11/26/23 02:16 11/26/23 02:16 11/26/23 02:15 11/26/23 02:02 11/26/23 02:02 11/26/23 02:00 11/26/23 02:00 11/26/23 01:48 11/26/23 01:48 11/26/23 01:47 11/26/23 01:46 11/26/23 01:46 11/26/23 01:45 11/26/23 01:30 11/26/23 01:30 11/26/23 01:22 11/26/23 01:20 45 11/26/23 01:15 11/26/23 01:15 11/26/23 01:00 11/26/23 01:00 Laboratory Results 11/26/23 03:44 11/26/23 11:15 11/24 UA reviewed > 3+ blood and dipstick protein and LE w/ no bacteria Diagnostic Findings cxr today 1. Status post placement of a right IJ central venous catheter. No postprocedural pneumothorax identified. 2. Cardiomegaly with unchanged mixed interstitial and alveolar pulmonary opacities. CT non con Moderate right-sided hydronephrosis with perinephric fat stranding to the level of the UPJ. No obstructing stone. (3) Acute on chronic kidney failure Acute renal failure type: with other specified pathological lesion
[2023-11-26] MEDS: HYDROmorphone INJ 0.5 MG/0.5 ML SYR IV PRN (17:01)
[2023-11-27 04:20] LABS: Basophils # (auto) 0.02 K/uL (0.00-0.20); Basophils % (auto) 0.2 %; Eosinophils # (auto) 0.97 K/uL (0.00-0.50); Eosinophils % (auto) 7.9 %; Hematocrit (blood only) 30.7 % (37.0-47.0); Hemoglobin 9.6 g/dl (12.0-16.0); Immature Granulocytes # (auto) 0.05 K/uL (0.01-0.20); Immature Granulocytes % (auto) 0.4 %; Lymphocytes # (auto) 0.96 K/uL (1.20-3.40); Lymphocytes % (auto) 7.8 %; Mean Corpuscular Hemoglobin 27.4 pg (25.0-34.0); Mean Corpuscular Hgb Conc 31.3 g/dL (32.0-36.0); Mean Corpuscular Volume 87.5 fL (80.0-100.0); Mean Platelet Volume 10.5 fL (9.4-12.4); Monocytes # (auto) 0.41 K/uL (0.11-0.59); Monocytes % (auto) 3.3 %; Neutrophils # (auto) 9.87 K/uL (1.40-6.50); Neutrophils % (auto) 80.4 %; Platelet Count 285 K/uL (130-400); RDW Coefficient of Variation 15.9 % (11.5-14.5); Red Blood Count 3.51 M/uL (4.20-5.40); White Blood Count 12.28 K/ul (4.8-10.8)
[2023-11-27 04:34] LABS: BUN Creatinine Ratio 19.5 (10-20); Calcium 8.5 mg/dl (8.6-10.3); Creatinine Clr Calc Pharmacy 35.7 ml/min; Est GFR (African American) 28.1 ml/min; Est GFR (Non-African American) 24.3 ml/min; Phosphorus 3.6 mg/dl (2.5-4.9); Potassium 3.8 mmol/L (3.5-5.1)
--- NOTE | 2023-11-27 06:56 | Hospitalist Progress Note ---
Date of Service November 27, 2023 Assessment & Plan (1) Ambulatory dysfunction: (2) Weakness: (3) Type 2 diabetes, uncontrolled, with neuropathy: (4) Chronic diastolic heart failure: (5) Chronic respiratory failure: (6) CKD (chronic kidney disease), stage III: (7) ELISSA on CPAP: (8) HTN (hypertension): (9) Hypothyroidism: (10) Depression with anxiety: (11) History of pulmonary embolism: (12) Constipation: Plan This is a 68 y/o female with a history of chronic respiratory failure due to probable interstitial lung disease, on chronic O2 at 4 L, ELISSA on CPAP, chronic diastolic heart failure, PVD, HTN, hyperlipidemia, insulin-requiring DM, CKD with baseline creatinine ~1.6, prior DVT/PE, s/p IVC filter placement and on Eliquis, hx HIT, hypothyroidism, fibromyalgia, RLS and depression who presents to the ED today after a fall at home. Work-up in the ED was negative for acute injury, but pt reported severe pain in her knees when she attempted an ambulatory trial in the ED. She feels like she unsafe to return home on her own so she was referred for admission and possible rehab placement. Of note, it appears that she was originally supposed go to [facility] for rehab after her admission in late Sep (d/c on 10/28) but she declined this option as she had no one to take care of her cats. She is willing to consider possible rehab placement 11/24. Course complicated by abdominal/flank pain overnight, hypotension, and encephalopathy. CT abd pelvis with right hydronephrosis with UPJ obstruction. Urology consulted and stent placed with return of purulent urine. Suspect likely source of sepsis Patient hypotensive and not fluid responsive, transferred to ICU #Acute toxic metabolic encephalopathy 10/28 infection *improved manage as follows delirium precautions Diet in place #Septic shock, likely secondary to acute on chronic UPJ obstruction #Right hydronephrosis s/p stent placement -CT scan with the same chronic findings as prior exams, however given clinical deterioration consulted urology -s/p stent placement 11/24 -notable hypotensive s/p procedure -Discontinue Vanc Zosyn for CTX -Follow cultures: serratia in urine obtained from stent placement -Other infectious work up: knee less suspicious for infectious etiology at this time, likely above urologic source, ortho following -ICU consulted, transferred to ICU on 11/24 -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 Baseline creatinine around 1.6 *improving Avoid nephrotoxic agents iso sepsis Cr up to 2.54 s/p stenting procure, prerenal 2/2 hypotension Consult nephrology 2/2 ELSIE and volume concerns: CTM to trend BMP IV hydration at this time, strict I/Os #Acute on chronic respiratory failure, multifactorial *back to baseline, #Chronic heart failure with preserved ejection fraction On 4 L O2 chronically Chronic, stable Patient now s/p stent placement, after procedure requiring CPAP Needing to push fluid, however, concern for volume overload, will need to likely diurese once sepsis resolves Wean o2 as able #Ambulatory dysfunction #Severe left knee osteoarthritis Ongoing bilateral knee pain, h/o R TKA by Dr. Carrillo years ago and following with [facility] for L knee OA with plans for possible future L TKA but process complicated by BMI and other comorbidities. Patient has been losing weight, due to re-evaluate possibility of TKA but interested in second opinion. Routine consult placed for [facility] ortho. - Fall precautions - Pain control prn -Accepted to rehab, bed not available until early next week -Ortho following: consider lumbar imaging when patient stable, will need follow up at tertiary center given complex comorbities #DMTII Chronic, pt reports sugars have been stable for her since being discharged SSI #Hypothyroidism Chronic, stable; TSH low, decrease levothyroxine from 250->200meq Continue levothyroxine #depression mood stable continue meds #Constipation bowel regimen #Prior PE IVC filter, continue eliquis Code Status: Full code DVT Prophylaxis: continue Eliquis, has IVC filter Disposition managing new sepsis as above, transfer to PCU Admission and Anticipated Discharge Date Admission Date: November 20, 2023 Subjective Patient evaluated at bedside in ICU Reports pain but correlates it to chronic longstanding discomfort Denies any other acute concerns off pressor support since 529, pressures better, on midodrine TID Physical Exam Constitutional: WD/WN, vitals as above Respiratory: decreased secondary to effort Cardiovascular: tachycardic Gastrointestinal (Abdomen): normal bowel sounds, soft, nontender, no h epatosplenomegaly Results & Data Results & Data Vital Signs (Past 12 Hours) Vital Signs Temp Pulse Resp BP Pulse Ox O2 Del Method O2 Flow Rate 11/27/23 06:00 109/83 11/27/23 06:00 96 H 28 H 91 11/27/23 05:30 87/72 L 11/27/23 05:30 94 H 24 87 L 11/27/23 05:00 92/65 L 11/27/23 05:00 92 H 20 99 11/27/23 04:30 86/63 L 11/27/23 04:30 93 H 20 97 11/27/23 04:02 37.0 C 11/27/23 04:00 94/65 L 11/27/23 04:00 94 H 26 H 99 11/27/23 03:30 87/58 L 11/27/23 03:30 93 H 25 H 95 11/27/23 03:00 89 23 98 11/27/23 03:00 80/58 L 11/27/23 02:50 92 H 24 100 3 11/27/23 02:30 77/52 L 11/27/23 02:30 93 H 14 88 L 11/27/23 02:00 93/53 L 11/27/23 02:00 87 23 97 11/27/23 01:30 90/57 L 11/27/23 01:30 94 H 21 95 11/27/23 01:04 87/53 L 11/27/23 01:04 91 H 23 11/27/23 01:00 93 H 24 99 11/27/23 00:31 96 H 27 H 93 11/27/23 00:31 129/65 11/27/23 00:21 97 H 11/27/23 00:00 83/52 L 11/27/23 00:00 96 H 19 96 11/26/23 23:50 91 H 22 93 11/26/23 23:30 96 H 24 96 11/26/23 23:30 85/56 L 11/26/23 23:00 95 H 20 96 11/26/23 23:00 120/67 11/26/23 22:30 117/59 L 11/26/23 22:30 93 H 20 96 11/26/23 22:00 112/68 11/26/23 22:00 93 H 23 94 11/26/23 21:30 99 H 25 H 89 L 11/26/23 21:30 130/70 11/26/23 21:00 96 H 22 92 11/26/23 21:00 92/58 L 11/26/23 20:30 98/59 L 11/26/23 20:30 99 H 24 93 11/26/23 20:00 94/58 L 11/26/23 20:00 96 H 18 93 11/26/23 19:49 37.1 C 11/26/23 19:41 Nasal Cannula 5 11/26/23 19:30 88/53 L 11/26/23 19:30 96 H 22 95 11/26/23 19:00 110/58 L 11/26/23 19:00 95 H 21 98 FiO2 11/27/23 06:00 11/27/23 06:00 11/27/23 05:30 11/27/23 05:30 11/27/23 05:00 11/27/23 05:00 11/27/23 04:30 11/27/23 04:30 11/27/23 04:02 11/27/23 04:00 11/27/23 04:00 11/27/23 03:30 11/27/23 03:30 11/27/23 03:00 11/27/23 03:00 11/27/23 02:50 11/27/23 02:30 11/27/23 02:30 11/27/23 02:00 11/27/23 02:00 11/27/23 01:30 11/27/23 01:30 11/27/23 01:04 11/27/23 01:04 11/27/23 01:00 11/27/23 00:31 11/27/23 00:31 11/27/23 00:21 11/27/23 00:00 11/27/23 00:00 11/26/23 23:50 35 11/26/23 23:30 11/26/23 23:30 11/26/23 23:00 11/26/23 23:00 11/26/23 22:30 11/26/23 22:30 11/26/23 22:00 11/26/23 22:00 11/26/23 21:30 11/26/23 21:30 11/26/23 21:00 11/26/23 21:00 11/26/23 20:30 11/26/23 20:30 11/26/23 20:00 11/26/23 20:00 11/26/23 19:49 11/26/23 19:41 11/26/23 19:30 11/26/23 19:30 11/26/23 19:00 11/26/23 19:00 Laboratory Results Short CBC 11/27/23 Range/Units 03:58 WBC 12.28 H (4.8-10.8) K/ul Hgb 9.6 L (12.0-16.0) g/dl Hct 30.7 L (37.0-47.0) % Plt Count 285 (130-400) K/uL BMP 11/26/23 11/27/23 11:15 03:58 Sodium 135 L 136 Potassium 4.1 3.8 Chloride 100 102 Carbon Dioxide 27 28 BUN 41 H 40 H Creatinine 2.49 H 2.05 H D Glucose 164 H 140 H Calcium 8.3 L 8.5 L Medications Administered Home Medications Medication Instructions Recorded Confirmed Last Taken aspirin 81 mg tablet,delayed 81 mg PO DAILY 09/20/23 11/20/23 11/19/23 release atorvastatin 20 mg tablet 20 mg PO DAILY 09/20/23 11/20/23 11/19/23 baclofen 10 mg tablet 10 mg PO BID PRN Muscle Spasm 09/20/23 11/20/23 Unknown clonazepam 0.5 mg tablet 0.5 mg PO BID 09/20/23 11/20/23 11/19/23 clopidogrel 75 mg tablet 75 mg PO DAILY 09/20/23 11/20/23 11/19/23 duloxetine 60 mg capsule,delayed See Rx Instructions .Route .COMPLEX 09/20/23 11/20/23 11/19/23 release furosemide 40 mg tablet 60 mg PO BID 09/20/23 11/20/23 11/19/23 gabapentin 300 mg capsule 600 mg PO TID 09/20/23 11/20/23 11/19/23 insulin aspart U-100 100 unit/mL 8 unit subcut UD 09/20/23 11/20/23 11/19/23 (3 mL) subcutaneous pen (Novolog FlexPen U-100 Insulin aspart) insulin degludec 100 unit/mL (3 50 unit subcut HS 09/20/23 11/20/23 11/19/23 mL) subcutaneous pen (Tresiba FlexTouch U-100 insulin) levothyroxine 200 mcg tablet See Rx Instructions .Route .COMPLEX 09/20/23 11/20/23 11/19/23 levothyroxine 50 mcg tablet See Rx Instructions .Route .COMPLEX 09/20/23 11/20/23 11/19/23 magnesium oxide 400 mg (241.3 mg 400 mg PO BID 09/20/23 11/20/23 11/19/23 magnesium) tablet omeprazole 20 mg capsule,delayed 20 mg PO DAILY 09/20/23 11/20/23 11/19/23 release oxycodone 5 mg tablet 5 mg PO Q6H PRN Pain 09/20/23 11/20/23 Unknown potassium chloride 20 mEq 20 meq PO BID 09/20/23 11/20/23 11/19/23 tablet,extended release(part/cryst) ropinirole 2 mg tablet 2 mg PO HS 09/20/23 11/20/23 11/19/23 sennosides 8.6 mg-docusate sodium 1 tab PO BID 09/20/23 11/20/23 11/19/23 50 mg tablet (Senna-Time S) tirzepatide 5 mg/0.5 mL 5 mg subcut WK 09/20/23 11/20/23 11/16/23 subcutaneous pen injector (Kevan) tramadol 50 mg tablet 50 mg PO TID PRN Pain 09/20/23 11/20/23 Unknown trazodone 100 mg tablet 100 mg PO HS 09/20/23 11/20/23 11/19/23 Vit D3 1000iu 200+50 Softge 1 tab PO QAM 10/24/23 11/20/23 11/19/23 apixaban 2.5 mg tablet (Eliquis) 2.5 mg PO BID 10/24/23 11/20/23 11/19/23 dicyclomine 20 mg tablet 20 mg PO QID PRN abdominal cramping 10/24/23 11/20/23 Unknown duloxetine 30 mg capsule,delayed See Rx Instructions .Route .COMPLEX 10/24/23 11/20/23 11/19/23 release triamcinolone acetonide 0.5 % 1 applic topical BID PRN chest rash 10/24/23 11/20/23 Unknown topical cream Active Medications Generic Name Dose Route Start Last Admin Trade Name Freq PRN Reason Stop Dose Admin Acetaminophen 650 mg 11/21/23 00:54 11/26/23 20:03 Acetaminophen 325 Mg Tab PO 12/21/23 00:53 650 mg QID PRN Administration pain/fever Apixaban 2.5 mg 11/20/23 21:00 11/26/23 20:01 Apixaban 2.5 Mg Tab PO 12/20/23 20:59 2.5 mg BID ROBERT Administration Aspirin 81 mg 11/21/23 09:00 11/25/23 09:29 Aspirin 81 Mg Ectab PO 12/21/23 08:59 81 mg DAILY ROBERT Administration Atorvastatin Calcium 20 mg 11/21/23 09:00 11/26/23 08:11 Atorvastatin 20 Mg Tab PO 12/21/23 08:59 20 mg DAILY ROBERT Administration Baclofen 10 mg 11/20/23 16:25 11/20/23 21:10 Baclofen 10 Mg Tab PO 12/20/23 16:24 10 mg BID PRN Administration Muscle Spasm Clonazepam 0.25 mg 11/26/23 09:15 11/26/23 20:03 Clonazepam 0.25 Mg Tab PO 12/26/23 09:14 0.25 mg BID ROBERT Administration Clopidogrel Bisulfate 75 mg 11/21/23 09:00 11/25/23 09:29 Clopidogrel Bisulfate 75 Mg Tab PO 12/21/23 08:59 75 mg DAILY ROBERT Administration Diclofenac Sodium 2 gm 11/23/23 13:45 11/27/23 06:00 Diclofenac Sod 1% Gel 100 Gm Tube EXT 12/23/23 13:44 2 gm Q6 ROBERT Administration Protocol Dicyclomine HCl 20 mg 11/20/23 16:25 11/26/23 20:00 Dicyclomine Hcl 20 Mg Tab PO 12/20/23 16:24 20 mg QID PRN Administration abdominal cramping Duloxetine HCl 60 mg 11/20/23 17:00 11/26/23 09:19 Duloxetine Hcl 60 Mg Cap PO 12/20/23 16:59 60 mg DAILY ROBERT Administration Duloxetine HCl 30 mg 11/20/23 17:00 11/26/23 09:19 Duloxetine Hcl 30 Mg Cap PO 12/20/23 16:59 30 mg DAILY ROBERT Administration Gabapentin 300 mg 11/26/23 09:30 11/26/23 20:00 Gabapentin 300 Mg Cap PO 12/26/23 09:29 300 mg BID ROBERT Administration Hydromorphone HCl 0.5 mg 11/26/23 16:52 11/26/23 23:52 Hydromorphone Inj 0.5 Mg/0.5 Ml Syr IV 12/10/23 16:51 0.5 mg Q6H PRN Administration Severe Pain (Scale 7, 8, 9,10) Piperacillin Sod/Tazobactam 100 mls @ 25 mls/hr 11/25/23 06:00 11/27/23 05:59 Sod 4.5 gm/ Dextrose IV 12/05/23 05:59 25 mls/hr Q8H ROBERT Administration Protocol Norepinephrine Bitartrate 4 mg in 250 mls @ 0 mls/hr 11/26/23 03:30 11/27/23 05:46 Levophed/D5w IV 12/26/23 03:29 0 mcg/kg/min .Q0M ROBERT 0 mls/hr Titration Protocol 0 MCG/KG/MIN Insulin Aspart 0 units 11/25/23 00:00 11/27/23 05:06 Insulin Aspart Per Unit Charge SC 12/25/23 00:00 Not Given Q6 ROBERT Insulin Glargine 25 units 11/26/23 09:00 11/26/23 10:47 Lantus Per Unit Charge SQ 12/26/23 08:59 25 units DAILY ROBERT Administration Protocol Levothyroxine Sodium 50 mcg 11/20/23 17:00 11/26/23 05:54 Levothyroxine Sodium 50 Mcg Tablet PO 12/20/23 16:59 50 mcg DAILYBB ROBERT Administration Levothyroxine Sodium 200 mcg 11/20/23 17:00 11/27/23 06:01 Levothyroxine Sodium 200 Mcg Tablet PO 12/20/23 16:59 200 mcg DAILYBB ROBERT Administration Magnesium Hydroxide 30 ml 11/22/23 17:59 11/23/23 05:25 Magnesium Hydroxide Susp 30 Ml Udc PO 12/22/23 17:58 30 ml Q6H PRN Administration Constipation Magnesium Oxide 400 mg 11/20/23 21:00 11/25/23 09:28 Magnesium Oxide 400 Mg Tab PO 12/20/23 20:59 400 mg BID ROBERT Administration Midodrine 5 mg 11/26/23 08:00 11/26/23 17:47 Midodrine Hcl 2.5 Mg Tab PO 12/26/23 07:59 5 mg TID@0800,1200,1700 ROBERT Administration Ondansetron HCl 4 mg 11/24/23 20:39 11/24/23 21:21 Ondansetron 4 Mg Od Tab PO 12/24/23 20:38 4 mg Q8H PRN Administration Nausea And Vomiting Pantoprazole Sodium 40 mg 11/21/23 09:00 11/26/23 08:12 Pantoprazole 40 Mg Tab PO 12/21/23 08:59 40 mg DAILY ROBERT Administration Protocol Ropinirole HCl 2 mg 11/20/23 21:00 11/26/23 20:00 Ropinirole Hcl 2 Mg Tablet PO 12/20/23 20:59 2 mg HS ROBERT Administration Senna/Docusate Sodium 1 tab 11/20/23 21:00 11/26/23 20:03 Docusate Sodium/Senna 50/8.6mg Tab PO 12/20/23 20:59 1 tab BID ROBERT Administration Sodium Chloride 2 sprays 11/21/23 00:13 11/21/23 00:58 Sodium Chloride 0.65% Na Soln 45 Ml (Alger) NA 12/21/23 00:12 2 sprays TID PRN Administration Nasal Congestion (5) Chronic respiratory failure Respiratory failure complication: hypoxia Qualified Code(s): J96.11 - Chronic respiratory failure with hypoxia (6) CKD (chronic kidney disease), stage III Chronic kidney disease stage 3 subtype: unspecified whether 3a or 3b Qualified Code(s): N18.30 - Chronic kidney disease, stage 3 unspecified (8) HTN (hypertension) Hypertension type: primary hypertension Qualified Code(s): I10 - Essential (primary) hypertension (9) Hypothyroidism Hypothyroidism type: unspecified Qualified Code(s): E03.9 - Hypothyroidism, unspecified
--- NOTE | 2023-11-27 08:28 | Urology Progress Note ---
Date of Service November 27, 2023 Assessment & Plan (1) Sepsis secondary to UTI: Plan: S/p right ureteral stent placement on 11/25/2023 Agree with broad-spectrum antibiotics while cultures finalize. Continue ongoing supportive care with weaning pressors as possible. No plan for further urologic intervention at this time, would maintain Fernandez catheter and ureteral stent until she is clinically improved. Further urologic intervention will be coordinated as an outpatient. Urology will sign off for now, but please call with any questions or concerns. Admission and Anticipated Discharge Date Admission Date: November 20, 2023 Subjective Feeling tired, reports pain in the shoulders and lower extremities. Tolerating the stent and Fernandez without any issues Tmax over the last 24 hours of 37.9 C, has been hypotensive Creatinine improving (2.05 today down from 2.54), leukocytosis improving as well (12.28 down from 20.79) Blood cultures from negative, urine culture from 11/24 with gram-negative bacilli Physical Exam Physical Exam: Ill-appearing, NAD, resting in bed Genitourinary: Fernandez catheter draining clear yellow urine Results & Data Vital Signs (Past 12 Hours) Vital Signs Temp Pulse Resp BP Pulse Ox O2 Flow Rate FiO2 11/27/23 07:00 96 H 11/27/23 06:00 109/83 11/27/23 06:00 96 H 28 H 91 11/27/23 05:30 87/72 L 11/27/23 05:30 94 H 24 87 L 11/27/23 05:00 92/65 L 11/27/23 05:00 92 H 20 99 11/27/23 04:30 86/63 L 11/27/23 04:30 93 H 20 97 11/27/23 04:02 37.0 C 11/27/23 04:00 94/65 L 11/27/23 04:00 94 H 26 H 99 11/27/23 03:30 87/58 L 11/27/23 03:30 93 H 25 H 95 11/27/23 03:00 89 23 98 11/27/23 03:00 80/58 L 11/27/23 02:50 92 H 24 100 3 11/27/23 02:30 77/52 L 11/27/23 02:30 93 H 14 88 L 11/27/23 02:00 93/53 L 11/27/23 02:00 87 23 97 11/27/23 01:30 90/57 L 11/27/23 01:30 94 H 21 95 11/27/23 01:04 87/53 L 11/27/23 01:04 91 H 23 11/27/23 01:00 93 H 24 99 11/27/23 00:31 96 H 27 H 93 11/27/23 00:31 129/65 11/27/23 00:21 97 H 11/27/23 00:00 83/52 L 11/27/23 00:00 96 H 19 96 11/26/23 23:50 91 H 22 93 35 11/26/23 23:30 96 H 24 96 11/26/23 23:30 85/56 L 11/26/23 23:00 95 H 20 96 11/26/23 23:00 120/67 11/26/23 22:30 117/59 L 11/26/23 22:30 93 H 20 96 11/26/23 22:00 112/68 11/26/23 22:00 93 H 23 94 11/26/23 21:30 99 H 25 H 89 L 11/26/23 21:30 130/70 11/26/23 21:00 96 H 22 92 11/26/23 21:00 92/58 L 11/26/23 20:30 98/59 L 11/26/23 20:30 99 H 24 93 PG Care Time/CCT Total # of Minutes Spent Total Time Spent with Patient: Total time spent is greater than 50% in coordination of care (as documented) at patient's floor/unit and/or counseling patient: Coding Level of Care Code 65074 SUB INP/OBS CARE 10/20MIN Diagnoses Sepsis secondary to UTI A41.9; N39.0
--- NOTE | 2023-11-27 08:37 | Orthopedic Progress Note ---
Date of Service November 27, 2023 Assessment & Plan (1) Left knee DJD: Plan: Critically ill female currently in the ICU due to persistent hypotension and septic shock likely secondary to UTI growing gram-negative bacilli with complaints of bilateral knee pain. I was asked to reevaluate the patient as her exam was limited on Tuesday given her mental state. Currently she seems to be more alert than she was at that time however history and exam is still limited. In regards to her right knee patient reports ongoing pain in her knee for some time. Past history of total knee replacement on the right with Dr. Carrillo. X- rays without effusion, no evidence of loosening. Does not seem to be significantly worse than her baseline at this time however her history is limited. If symptoms worsen or develops effusion could consider aspiration to rule out septic total knee however at this time low concern for infection. 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 She has had little relief with injections in the past. Knee pain is likely multifactorial with history of fibromyalgia as well. Could have a radicular component from her back however given her current health status difficult to fully assess. Based on her x-rays and response to conservative management she would be a candidate for knee replacement however with her multiple comorbidities including diabetes and morbid obesity would be at significant risk for complication. This may be best undertaken at a tertiary care facility as an outpatient. She already follows with [facility] orthopedics with Dr. Teague. Recommend continued conservative management at this time including ice, Voltaren gel as needed. Avoid NSAIDs due to ELSIE on CKD. Would avoid steroid injection in the left knee at this time. (2) Ambulatory dysfunction: Admission and Anticipated Discharge Date Admission Date: November 20, 2023 Subjective 68-year-old female critically ill currently in the ICU for septic shock and persistent hypotension on pressor support with complaints of left greater than right knee pain. I was asked to reevaluate the patient when she is more alert from her exam the other day. Patient is somewhat somnolent however answers questions appropriately.. History is limited. Patient does have history of prior total knee arthroplasty in the right knee. In regards to her right knee she states she has had pain off and on for several years. Not significantly worse than her baseline. Her left knee she has end-stage osteoarthritis. She has been following with Dr. Peralta with [facility] orthopedics. She has had previous injections into her knee with little relief. Review of Systems Review of Systems: All systems reviewed & are unremarkable except as noted in Subjective Physical Exam Physical Exam: Ill-appearing obese female. No acute distress. Musculoskeletal: Right knee: Well-healed surgical incision. No effusion. No erythema. Knee is stable to valgus and varus stress test. Range of motion 0 to 120 degrees with mild pain with range of motion. Left knee: Mild effusion tenderness medial joint line. Stable to valgus and varus stress test. Range of motion is 0 to 100 degrees Exam is limited due to current health condition. Results & Data Vital Signs (Past 12 Hours) Vital Signs Temp Pulse Resp BP Pulse Ox O2 Flow Rate FiO2 11/27/23 07:00 96 H 11/27/23 06:00 109/83 11/27/23 06:00 96 H 28 H 91 11/27/23 05:30 87/72 L 11/27/23 05:30 94 H 24 87 L 11/27/23 05:00 92/65 L 11/27/23 05:00 92 H 20 99 11/27/23 04:30 86/63 L 11/27/23 04:30 93 H 20 97 11/27/23 04:02 37.0 C 11/27/23 04:00 94/65 L 11/27/23 04:00 94 H 26 H 99 11/27/23 03:30 87/58 L 11/27/23 03:30 93 H 25 H 95 11/27/23 03:00 89 23 98 11/27/23 03:00 80/58 L 11/27/23 02:50 92 H 24 100 3 11/27/23 02:30 77/52 L 11/27/23 02:30 93 H 14 88 L 11/27/23 02:00 93/53 L 11/27/23 02:00 87 23 97 11/27/23 01:30 90/57 L 11/27/23 01:30 94 H 21 95 11/27/23 01:04 87/53 L 11/27/23 01:04 91 H 23 11/27/23 01:00 93 H 24 99 11/27/23 00:31 96 H 27 H 93 11/27/23 00:31 129/65 11/27/23 00:21 97 H 11/27/23 00:00 83/52 L 11/27/23 00:00 96 H 19 96 11/26/23 23:50 91 H 22 93 35 11/26/23 23:30 96 H 24 96 11/26/23 23:30 85/56 L 11/26/23 23:00 95 H 20 96 11/26/23 23:00 120/67 11/26/23 22:30 117/59 L 11/26/23 22:30 93 H 20 96 11/26/23 22:00 112/68 11/26/23 22:00 93 H 23 94 11/26/23 21:30 99 H 25 H 89 L 11/26/23 21:30 130/70 11/26/23 21:00 96 H 22 92 11/26/23 21:00 92/58 L Laboratory Results Lab Results 11/20/23 11/20/23 11/20/23 Range/Units 09:00 10:19 14:24 WBC 12.25 H (4.8-10.8) K/ul RBC 4.28 (4.20-5.40) M/uL Hgb 11.5 L (12.0-16.0) g/dl POC Hgb (12.0-16.0) g/dl Hct 38.7 (37.0-47.0) % POC Hct (37-47) % MCV 90.4 (80.0-100.0) fL MCH 26.9 (25.0-34.0) pg MCHC 29.7 L (32.0-36.0) g/dL RDW Std Deviation 50.7 H (36.4-46.3) fL RDW Coeff of Adolfo 15.5 H (11.5-14.5) % Plt Count 300 (130-400) K/uL MPV 10.2 (9.4-12.4) fL Immature Gran % (Auto) 0.9 % Neut % (Auto) 66.5 % Lymph % (Auto) 22.4 % [place] % (Auto) 5.6 % Eos % (Auto) 4.3 % Baso % (Auto) 0.3 % Neut # (Auto) 8.14 H (1.40-6.50) K/uL Lymph # (Auto) 2.75 (1.20-3.40) K/uL [place] # (Auto) 0.68 H (0.11-0.59) K/uL Eos # (Auto) 0.53 H (0.00-0.50) K/uL Baso # (Auto) 0.04 (0.00-0.20) K/uL Immature Gran # (Auto) 0.11 (0.01-0.20) K/uL Toxic Vacuolation ESR (0-30) mm/hr PT 11.2 (9.0-12.0) Seconds INR 1.0 (0.9-1.1) POC pH (7.35-7.45) POC pCO2 (35-46) mmHg POC pO2 (80-95) mmHg POC HCO3 (19-24) adam/L POC Total CO2 (24-31) mmol/L POC Base Excess (-9-1.8) adam/L POC ABG O2 Sat (90-95) % VBG pH (7.36-7.41) VBG pCO2 (38-50) mmHg VBG pO2 mmHg VBG HCO3 mmol/L VBG O2 Saturation % VBG Base Excess mEq/L POC Sodium (135-144) mmol/L Sodium 141 (136-145) mmol/L POC Potassium (3.3-5.0) mmol/L Potassium TNP 3.5 Chloride 98 (98-107) mmol/L Carbon Dioxide 35 H (21-32) mmol/L Anion Gap 8 (3-11) BUN 28 H (6-23) mg/dl Creatinine 1.55 H (0.6-1.2) mg/dl Est Cr Clr Drug Dosing 43.5 ml/min Est GFR ( Amer) 39.5 ml/min Est GFR (Non-Af Amer) 34.1 ml/min BUN/Creatinine Ratio 18.1 (10-20) Glucose 121 H (70-99(Fasting)) mg/dl POC Glucose 110 H (70-99) mg/dl POC Glucose (other) (70-99) mg/dl Estimat Average Glucose 169 mg/dl Hemoglobin A1c 7.5 H (4.5-5.6) % Lactate (0.4-2.0) mmol/L Calcium 9.6 (8.6-10.3) mg/dl Ionized Calcium (1.12-1.32) mmol/L Phosphorus (2.5-4.9) mg/dl Magnesium (1.7-2.4) mg/dl Total Bilirubin 0.4 (0.2-1.0) mg/dl AST TNP 11 L ALT 6 L (7-52) U/L Alkaline Phosphatase 88 (34-104) U/L Troponin I High Sens 6.0 (0-14) pg/ml C-Reactive Protein (0-0.5) mg/dl Total Protein 7.8 (6.0-8.3) gm/dl Albumin 3.8 (3.4-5.0) gm/dl Globulin 4.0 (2.5-4.0) gm/dl Albumin/Globulin Ratio 1.0 (0.9-2) Lipase 21 (11-82) U/L TSH (0.300-4.500) uIu/ml Free T4 (0.61-1.60) ng/dl Random Cortisol mcg/dl Urine Color Urine Appearance (Clear) Urine pH (4.5-7.5) Ur Specific [place] (1.000-1.030) Urine Protein (Negative) Urine Glucose (UA) (Negative) Urine Ketones (Negative) Urine Blood (Negative) Urine Nitrite (Negative) Urine Bilirubin (Negative) Urine Urobilinogen (Negative) Ur Leukocyte Esterase (Negative) Urine WBC (Auto) (0-5) /hpf Urine RBC (Auto) (0-4) /hpf U Hyaline Cast (Auto) (0-5) /lpf U Epithel Cells (Auto) (0-5) /lpf Urine Bacteria (Auto) (Negative) Urine Yeast Ur Random Creatinine mg/dl U Random Total Protein (0-11.9) mg/dl Protein/Creatinin Ratio (0-0.2) Urine Sodium mmol/L Urine Potassium mmol/L Urine Chloride mmol/L Nasal Screen MRSA (PCR) (Negative) Adenovirus (PCR) (NotDetected) B. pertussis DNA (PCR) (NotDetected) B.parapertussis DNA PCR (NotDetected) C. pneumoniae DNA (PCR) (NotDetected) Coronavirus OC43 (PCR) (NotDetected) Coronavirus HKU1 (PCR) (NotDetected) Coronavirus 229E (PCR) (NotDetected) SARS-CoV-2 (PCR) (NotDetected) Coronavirus NL63 (PCR) (NotDetected) Human Metapneumovir PCR (NotDetected) Influenza Type A (PCR) (NotDetected) Influenza Type B (PCR) (NotDetected) M. pneumoniae (PCR) (NotDetected) Parainfluenza 1 (PCR) (NotDetected) Parainfluenza 2 (PCR) (NotDetected) Parainfluenza 3 (PCR) (NotDetected) Parainfluenza 4 (PCR) (NotDetected) RSV (PCR) (NotDetected) Entero/Rhino (PCR) (NotDetected) Blood Type Antibody Screen 11/20/23 11/20/23 11/20/23 Range/Units 15:55 16:29 20:59 WBC (4.8-10.8) K/ul RBC (4.20-5.40) M/uL Hgb (12.0-16.0) g/dl POC Hgb (12.0-16.0) g/dl Hct (37.0-47.0) % POC Hct (37-47) % MCV (80.0-100.0) fL MCH (25.0-34.0) pg MCHC (32.0-36.0) g/dL RDW Std Deviation (36.4-46.3) fL RDW Coeff of Adolfo (11.5-14.5) % Plt Count (130-400) K/uL MPV (9.4-12.4) fL Immature Gran % (Auto) % Neut % (Auto) % Lymph % (Auto) % [place] % (Auto) % Eos % (Auto) % Baso % (Auto) % Neut # (Auto) (1.40-6.50) K/uL Lymph # (Auto) (1.20-3.40) K/uL [place] # (Auto) (0.11-0.59) K/uL Eos # (Auto) (0.00-0.50) K/uL Baso # (Auto) (0.00-0.20) K/uL Immature Gran # (Auto) (0.01-0.20) K/uL Toxic Vacuolation ESR (0-30) mm/hr PT (9.0-12.0) Seconds INR (0.9-1.1) POC pH (7.35-7.45) POC pCO2 (35-46) mmHg POC pO2 (80-95) mmHg POC HCO3 (19-24) adam/L POC Total CO2 (24-31) mmol/L POC Base Excess (-9-1.8) adam/L POC ABG O2 Sat (90-95) % VBG pH (7.36-7.41) VBG pCO2 (38-50) mmHg VBG pO2 mmHg VBG HCO3 mmol/L VBG O2 Saturation % VBG Base Excess mEq/L POC Sodium (135-144) mmol/L Sodium (136-145) mmol/L POC Potassium (3.3-5.0) mmol/L Potassium Chloride (98-107) mmol/L Carbon Dioxide (21-32) mmol/L Anion Gap (3-11) BUN (6-23) mg/dl Creatinine (0.6-1.2) mg/dl Est Cr Clr Drug Dosing ml/min Est GFR ( Amer) ml/min Est GFR (Non-Af Amer) ml/min BUN/Creatinine Ratio (10-20) Glucose (70-99(Fasting)) mg/dl POC Glucose 83 83 117 H (70-99) mg/dl POC Glucose (other) (70-99) mg/dl Estimat Average Glucose mg/dl Hemoglobin A1c (4.5-5.6) % Lactate (0.4-2.0) mmol/L Calcium (8.6-10.3) mg/dl Ionized Calcium (1.12-1.32) mmol/L Phosphorus (2.5-4.9) mg/dl Magnesium (1.7-2.4) mg/dl Total Bilirubin (0.2-1.0) mg/dl AST ALT (7-52) U/L Alkaline Phosphatase (34-104) U/L Troponin I High Sens (0-14) pg/ml C-Reactive Protein (0-0.5) mg/dl Total Protein (6.0-8.3) gm/dl Albumin (3.4-5.0) gm/dl Globulin (2.5-4.0) gm/dl Albumin/Globulin Ratio (0.9-2) Lipase (11-82) U/L TSH (0.300-4.500) uIu/ml Free T4 (0.61-1.60) ng/dl Random Cortisol mcg/dl Urine Color Urine Appearance (Clear) Urine pH (4.5-7.5) Ur Specific [place] (1.000-1.030) Urine Protein (Negative) Urine Glucose (UA) (Negative) Urine Ketones (Negative) Urine Blood (Negative) Urine Nitrite (Negative) Urine Bilirubin (Negative) Urine Urobilinogen (Negative) Ur Leukocyte Esterase (Negative) Urine WBC (Auto) (0-5) /hpf Urine RBC (Auto) (0-4) /hpf U Hyaline Cast (Auto) (0-5) /lpf U Epithel Cells (Auto) (0-5) /lpf Urine Bacteria (Auto) (Negative) Urine Yeast Ur Random Creatinine mg/dl U Random Total Protein (0-11.9) mg/dl Protein/Creatinin Ratio (0-0.2) Urine Sodium mmol/L Urine Potassium mmol/L Urine Chloride mmol/L Nasal Screen MRSA (PCR) (Negative) Adenovirus (PCR) (NotDetected) B. pertussis DNA (PCR) (NotDetected) B.parapertussis DNA PCR (NotDetected) C. pneumoniae DNA (PCR) (NotDetected) Coronavirus OC43 (PCR) (NotDetected) Coronavirus HKU1 (PCR) (NotDetected) Coronavirus 229E (PCR) (NotDetected) SARS-CoV-2 (PCR) (NotDetected) Coronavirus NL63 (PCR) (NotDetected) Human Metapneumovir PCR (NotDetected) Influenza Type A (PCR) (NotDetected) Influenza Type B (PCR) (NotDetected) M. pneumoniae (PCR) (NotDetected) Parainfluenza 1 (PCR) (NotDetected) Parainfluenza 2 (PCR) (NotDetected) Parainfluenza 3 (PCR) (NotDetected) Parainfluenza 4 (PCR) (NotDetected) RSV (PCR) (NotDetected) Entero/Rhino (PCR) (NotDetected) Blood Type Antibody Screen 11/21/23 11/21/23 11/21/23 Range/Units 07:40 11:35 16:39 WBC (4.8-10.8) K/ul RBC (4.20-5.40) M/uL Hgb (12.0-16.0) g/dl POC Hgb (12.0-16.0) g/dl Hct (37.0-47.0) % POC Hct (37-47) % MCV (80.0-100.0) fL MCH (25.0-34.0) pg MCHC (32.0-36.0) g/dL RDW Std Deviation (36.4-46.3) fL RDW Coeff of Adolfo (11.5-14.5) % Plt Count (130-400) K/uL MPV (9.4-12.4) fL Immature Gran % (Auto) % Neut % (Auto) % Lymph % (Auto) % [place] % (Auto) % Eos % (Auto) % Baso % (Auto) % Neut # (Auto) (1.40-6.50) K/uL Lymph # (Auto) (1.20-3.40) K/uL [place] # (Auto) (0.11-0.59) K/uL Eos # (Auto) (0.00-0.50) K/uL Baso # (Auto) (0.00-0.20) K/uL Immature Gran # (Auto) (0.01-0.20) K/uL Toxic Vacuolation ESR (0-30) mm/hr PT (9.0-12.0) Seconds INR (0.9-1.1) POC pH (7.35-7.45) POC pCO2 (35-46) mmHg POC pO2 (80-95) mmHg POC HCO3 (19-24) adam/L POC Total CO2 (24-31) mmol/L POC Base Excess (-9-1.8) adam/L POC ABG O2 Sat (90-95) % VBG pH (7.36-7.41) VBG pCO2 (38-50) mmHg VBG pO2 mmHg VBG HCO3 mmol/L VBG O2 Saturation % VBG Base Excess mEq/L POC Sodium (135-144) mmol/L Sodium (136-145) mmol/L POC Potassium (3.3-5.0) mmol/L Potassium Chloride (98-107) mmol/L Carbon Dioxide (21-32) mmol/L Anion Gap (3-11) BUN (6-23) mg/dl Creatinine (0.6-1.2) mg/dl Est Cr Clr Drug Dosing ml/min Est GFR ( Amer) ml/min Est GFR (Non-Af Amer) ml/min BUN/Creatinine Ratio (10-20) Glucose (70-99(Fasting)) mg/dl POC Glucose 117 H 197 H 163 H (70-99) mg/dl POC Glucose (other) (70-99) mg/dl Estimat Average Glucose mg/dl Hemoglobin A1c (4.5-5.6) % Lactate (0.4-2.0) mmol/L Calcium (8.6-10.3) mg/dl Ionized Calcium (1.12-1.32) mmol/L Phosphorus (2.5-4.9) mg/dl Magnesium (1.7-2.4) mg/dl Total Bilirubin (0.2-1.0) mg/dl AST ALT (7-52) U/L Alkaline Phosphatase (34-104) U/L Troponin I High Sens (0-14) pg/ml C-Reactive Protein (0-0.5) mg/dl Total Protein (6.0-8.3) gm/dl Albumin (3.4-5.0) gm/dl Globulin (2.5-4.0) gm/dl Albumin/Globulin Ratio (0.9-2) Lipase (11-82) U/L TSH (0.300-4.500) uIu/ml Free T4 (0.61-1.60) ng/dl Random Cortisol mcg/dl Urine Color Urine Appearance (Clear) Urine pH (4.5-7.5) Ur Specific [place] (1.000-1.030) Urine Protein (Negative) Urine Glucose (UA) (Negative) Urine Ketones (Negative) Urine Blood (Negative) Urine Nitrite (Negative) Urine Bilirubin (Negative) Urine Urobilinogen (Negative) Ur Leukocyte Esterase (Negative) Urine WBC (Auto) (0-5) /hpf Urine RBC (Auto) (0-4) /hpf U Hyaline Cast (Auto) (0-5) /lpf U Epithel Cells (Auto) (0-5) /lpf Urine Bacteria (Auto) (Negative) Urine Yeast Ur Random Creatinine mg/dl U Random Total Protein (0-11.9) mg/dl Protein/Creatinin Ratio (0-0.2) Urine Sodium mmol/L Urine Potassium mmol/L Urine Chloride mmol/L Nasal Screen MRSA (PCR) (Negative) Adenovirus (PCR) (NotDetected) B. pertussis DNA (PCR) (NotDetected) B.parapertussis DNA PCR (NotDetected) C. pneumoniae DNA (PCR) (NotDetected) Coronavirus OC43 (PCR) (NotDetected) Coronavirus HKU1 (PCR) (NotDetected) Coronavirus 229E (PCR) (NotDetected) SARS-CoV-2 (PCR) (NotDetected) Coronavirus NL63 (PCR) (NotDetected) Human Metapneumovir PCR (NotDetected) Influenza Type A (PCR) (NotDetected) Influenza Type B (PCR) (NotDetected) M. pneumoniae (PCR) (NotDetected) Parainfluenza 1 (PCR) (NotDetected) Parainfluenza 2 (PCR) (NotDetected) Parainfluenza 3 (PCR) (NotDetected) Parainfluenza 4 (PCR) (NotDetected) RSV (PCR) (NotDetected) Entero/Rhino (PCR) (NotDetected) Blood Type Antibody Screen 11/21/23 11/22/23 11/22/23 Range/Units 20:41 07:44 11:50 WBC (4.8-10.8) K/ul RBC (4.20-5.40) M/uL Hgb (12.0-16.0) g/dl POC Hgb (12.0-16.0) g/dl Hct (37.0-47.0) % POC Hct (37-47) % MCV (80.0-100.0) fL MCH (25.0-34.0) pg MCHC (32.0-36.0) g/dL RDW Std Deviation (36.4-46.3) fL RDW Coeff of Adolfo (11.5-14.5) % Plt Count (130-400) K/uL MPV (9.4-12.4) fL Immature Gran % (Auto) % Neut % (Auto) % Lymph % (Auto) % [place] % (Auto) % Eos % (Auto) % Baso % (Auto) % Neut # (Auto) (1.40-6.50) K/uL Lymph # (Auto) (1.20-3.40) K/uL [place] # (Auto) (0.11-0.59) K/uL Eos # (Auto) (0.00-0.50) K/uL Baso # (Auto) (0.00-0.20) K/uL Immature Gran # (Auto) (0.01-0.20) K/uL Toxic Vacuolation ESR (0-30) mm/hr PT (9.0-12.0) Seconds INR (0.9-1.1) POC pH (7.35-7.45) POC pCO2 (35-46) mmHg POC pO2 (80-95) mmHg POC HCO3 (19-24) adam/L POC Total CO2 (24-31) mmol/L POC Base Excess (-9-1.8) adam/L POC ABG O2 Sat (90-95) % VBG pH (7.36-7.41) VBG pCO2 (38-50) mmHg VBG pO2 mmHg VBG HCO3 mmol/L VBG O2 Saturation % VBG Base Excess mEq/L POC Sodium (135-144) mmol/L Sodium (136-145) mmol/L POC Potassium (3.3-5.0) mmol/L Potassium Chloride (98-107) mmol/L Carbon Dioxide (21-32) mmol/L Anion Gap (3-11) BUN (6-23) mg/dl Creatinine (0.6-1.2) mg/dl Est Cr Clr Drug Dosing ml/min Est GFR ( Amer) ml/min Est GFR (Non-Af Amer) ml/min BUN/Creatinine Ratio (10-20) Glucose (70-99(Fasting)) mg/dl POC Glucose 150 H 166 H 172 H (70-99) mg/dl POC Glucose (other) (70-99) mg/dl Estimat Average Glucose mg/dl Hemoglobin A1c (4.5-5.6) % Lactate (0.4-2.0) mmol/L Calcium (8.6-10.3) mg/dl Ionized Calcium (1.12-1.32) mmol/L Phosphorus (2.5-4.9) mg/dl Magnesium (1.7-2.4) mg/dl Total Bilirubin (0.2-1.0) mg/dl AST ALT (7-52) U/L Alkaline Phosphatase (34-104) U/L Troponin I High Sens (0-14) pg/ml C-Reactive Protein (0-0.5) mg/dl Total Protein (6.0-8.3) gm/dl Albumin (3.4-5.0) gm/dl Globulin (2.5-4.0) gm/dl Albumin/Globulin Ratio (0.9-2) Lipase (11-82) U/L TSH (0.300-4.500) uIu/ml Free T4 (0.61-1.60) ng/dl Random Cortisol mcg/dl Urine Color Urine Appearance (Clear) Urine pH (4.5-7.5) Ur Specific [place] (1.000-1.030) Urine Protein (Negative) Urine Glucose (UA) (Negative) Urine Ketones (Negative) Urine Blood (Negative) Urine Nitrite (Negative) Urine Bilirubin (Negative) Urine Urobilinogen (Negative) Ur Leukocyte Esterase (Negative) Urine WBC (Auto) (0-5) /hpf Urine RBC (Auto) (0-4) /hpf U Hyaline Cast (Auto) (0-5) /lpf U Epithel Cells (Auto) (0-5) /lpf Urine Bacteria (Auto) (Negative) Urine Yeast Ur Random Creatinine mg/dl U Random Total Protein (0-11.9) mg/dl Protein/Creatinin Ratio (0-0.2) Urine Sodium mmol/L Urine Potassium mmol/L Urine Chloride mmol/L Nasal Screen MRSA (PCR) (Negative) Adenovirus (PCR) (NotDetected) B. pertussis DNA (PCR) (NotDetected) B.parapertussis DNA PCR (NotDetected) C. pneumoniae DNA (PCR) (NotDetected) Coronavirus OC43 (PCR) (NotDetected) Coronavirus HKU1 (PCR) (NotDetected) Coronavirus 229E (PCR) (NotDetected) SARS-CoV-2 (PCR) (NotDetected) Coronavirus NL63 (PCR) (NotDetected) Human Metapneumovir PCR (NotDetected) Influenza Type A (PCR) (NotDetected) Influenza Type B (PCR) (NotDetected) M. pneumoniae (PCR) (NotDetected) Parainfluenza 1 (PCR) (NotDetected) Parainfluenza 2 (PCR) (NotDetected) Parainfluenza 3 (PCR) (NotDetected) Parainfluenza 4 (PCR) (NotDetected) RSV (PCR) (NotDetected) Entero/Rhino (PCR) (NotDetected) Blood Type Antibody Screen 11/22/23 11/22/23 11/22/23 Range/Units 12:23 16:29 20:54 WBC 10.67 (4.8-10.8) K/ul RBC 4.52 (4.20-5.40) M/uL Hgb 12.3 (12.0-16.0) g/dl POC Hgb (12.0-16.0) g/dl Hct 41.2 (37.0-47.0) % POC Hct (37-47) % MCV 91.2 (80.0-100.0) fL MCH 27.2 (25.0-34.0) pg MCHC 29.9 L (32.0-36.0) g/dL RDW Std Deviation 51.9 H (36.4-46.3) fL RDW Coeff of Adolfo 15.8 H (11.5-14.5) % Plt Count 288 (130-400) K/uL MPV 10.4 (9.4-12.4) fL Immature Gran % (Auto) 0.6 % Neut % (Auto) 66.2 % Lymph % (Auto) 20.0 % [place] % (Auto) 6.6 % Eos % (Auto) 5.9 % Baso % (Auto) 0.7 % Neut # (Auto) 7.08 H (1.40-6.50) K/uL Lymph # (Auto) 2.13 (1.20-3.40) K/uL [place] # (Auto) 0.70 H (0.11-0.59) K/uL Eos # (Auto) 0.63 H (0.00-0.50) K/uL Baso # (Auto) 0.07 (0.00-0.20) K/uL Immature Gran # (Auto) 0.06 (0.01-0.20) K/uL Toxic Vacuolation ESR (0-30) mm/hr PT (9.0-12.0) Seconds INR (0.9-1.1) POC pH (7.35-7.45) POC pCO2 (35-46) mmHg POC pO2 (80-95) mmHg POC HCO3 (19-24) adam/L POC Total CO2 (24-31) mmol/L POC Base Excess (-9-1.8) adam/L POC ABG O2 Sat (90-95) % VBG pH (7.36-7.41) VBG pCO2 (38-50) mmHg VBG pO2 mmHg VBG HCO3 mmol/L VBG O2 Saturation % VBG Base Excess mEq/L POC Sodium (135-144) mmol/L Sodium 136 (136-145) mmol/L POC Potassium (3.3-5.0) mmol/L Potassium 3.8 Chloride 96 L (98-107) mmol/L Carbon Dioxide 31 (21-32) mmol/L Anion Gap 9 (3-11) BUN 28 H (6-23) mg/dl Creatinine 1.62 H (0.6-1.2) mg/dl Est Cr Clr Drug Dosing 41.6 ml/min Est GFR ( Amer) 37.4 ml/min Est GFR (Non-Af Amer) 32.3 ml/min BUN/Creatinine Ratio 17.3 (10-20) Glucose 191 H (70-99(Fasting)) mg/dl POC Glucose 139 H 159 H (70-99) mg/dl POC Glucose (other) (70-99) mg/dl Estimat Average Glucose mg/dl Hemoglobin A1c (4.5-5.6) % Lactate (0.4-2.0) mmol/L Calcium 9.6 (8.6-10.3) mg/dl Ionized Calcium (1.12-1.32) mmol/L Phosphorus (2.5-4.9) mg/dl Magnesium (1.7-2.4) mg/dl Total Bilirubin (0.2-1.0) mg/dl AST ALT (7-52) U/L Alkaline Phosphatase (34-104) U/L Troponin I High Sens (0-14) pg/ml C-Reactive Protein (0-0.5) mg/dl Total Protein (6.0-8.3) gm/dl Albumin (3.4-5.0) gm/dl Globulin (2.5-4.0) gm/dl Albumin/Globulin Ratio (0.9-2) Lipase (11-82) U/L TSH (0.300-4.500) uIu/ml Free T4 (0.61-1.60) ng/dl Random Cortisol mcg/dl Urine Color Urine Appearance (Clear) Urine pH (4.5-7.5) Ur Specific [place] (1.000-1.030) Urine Protein (Negative) Urine Glucose (UA) (Negative) Urine Ketones (Negative) Urine Blood (Negative) Urine Nitrite (Negative) Urine Bilirubin (Negative) Urine Urobilinogen (Negative) Ur Leukocyte Esterase (Negative) Urine WBC (Auto) (0-5) /hpf Urine RBC (Auto) (0-4) /hpf U Hyaline Cast (Auto) (0-5) /lpf U Epithel Cells (Auto) (0-5) /lpf Urine Bacteria (Auto) (Negative) Urine Yeast Ur Random Creatinine mg/dl U Random Total Protein (0-11.9) mg/dl Protein/Creatinin Ratio (0-0.2) Urine Sodium mmol/L Urine Potassium mmol/L Urine Chloride mmol/L Nasal Screen MRSA (PCR) (Negative) Adenovirus (PCR) (NotDetected) B. pertussis DNA (PCR) (NotDetected) B.parapertussis DNA PCR (NotDetected) C. pneumoniae DNA (PCR) (NotDetected) Coronavirus OC43 (PCR) (NotDetected) Coronavirus HKU1 (PCR) (NotDetected) Coronavirus 229E (PCR) (NotDetected) SARS-CoV-2 (PCR) (NotDetected) Coronavirus NL63 (PCR) (NotDetected) Human Metapneumovir PCR (NotDetected) Influenza Type A (PCR) (NotDetected) Influenza Type B (PCR) (NotDetected) M. pneumoniae (PCR) (NotDetected) Parainfluenza 1 (PCR) (NotDetected) Parainfluenza 2 (PCR) (NotDetected) Parainfluenza 3 (PCR) (NotDetected) Parainfluenza 4 (PCR) (NotDetected) RSV (PCR) (NotDetected) Entero/Rhino (PCR) (NotDetected) Blood Type Antibody Screen 11/23/23 11/23/23 11/23/23 Range/Units 07:38 11:20 16:23 WBC (4.8-10.8) K/ul RBC (4.20-5.40) M/uL Hgb (12.0-16.0) g/dl POC Hgb (12.0-16.0) g/dl Hct (37.0-47.0) % POC Hct (37-47) % MCV (80.0-100.0) fL MCH (25.0-34.0) pg MCHC (32.0-36.0) g/dL RDW Std Deviation (36.4-46.3) fL RDW Coeff of Adolfo (11.5-14.5) % Plt Count (130-400) K/uL MPV (9.4-12.4) fL Immature Gran % (Auto) % Neut % (Auto) % Lymph % (Auto) % [place] % (Auto) % Eos % (Auto) % Baso % (Auto) % Neut # (Auto) (1.40-6.50) K/uL Lymph # (Auto) (1.20-3.40) K/uL [place] # (Auto) (0.11-0.59) K/uL Eos # (Auto) (0.00-0.50) K/uL Baso # (Auto) (0.00-0.20) K/uL Immature Gran # (Auto) (0.01-0.20) K/uL Toxic Vacuolation ESR (0-30) mm/hr PT (9.0-12.0) Seconds INR (0.9-1.1) POC pH (7.35-7.45) POC pCO2 (35-46) mmHg POC pO2 (80-95) mmHg POC HCO3 (19-24) adam/L POC Total CO2 (24-31) mmol/L POC Base Excess (-9-1.8) adam/L POC ABG O2 Sat (90-95) % VBG pH (7.36-7.41) VBG pCO2 (38-50) mmHg VBG pO2 mmHg VBG HCO3 mmol/L VBG O2 Saturation % VBG Base Excess mEq/L POC Sodium (135-144) mmol/L Sodium (136-145) mmol/L POC Potassium (3.3-5.0) mmol/L Potassium Chloride (98-107) mmol/L Carbon Dioxide (21-32) mmol/L Anion Gap (3-11) BUN (6-23) mg/dl Creatinine (0.6-1.2) mg/dl Est Cr Clr Drug Dosing ml/min Est GFR ( Amer) ml/min Est GFR (Non-Af Amer) ml/min BUN/Creatinine Ratio (10-20) Glucose (70-99(Fasting)) mg/dl POC Glucose 181 H 169 H 110 H (70-99) mg/dl POC Glucose (other) (70-99) mg/dl Estimat Average Glucose mg/dl Hemoglobin A1c (4.5-5.6) % Lactate (0.4-2.0) mmol/L Calcium (8.6-10.3) mg/dl Ionized Calcium (1.12-1.32) mmol/L Phosphorus (2.5-4.9) mg/dl Magnesium (1.7-2.4) mg/dl Total Bilirubin (0.2-1.0) mg/dl AST ALT (7-52) U/L Alkaline Phosphatase (34-104) U/L Troponin I High Sens (0-14) pg/ml C-Reactive Protein (0-0.5) mg/dl Total Protein (6.0-8.3) gm/dl Albumin (3.4-5.0) gm/dl Globulin (2.5-4.0) gm/dl Albumin/Globulin Ratio (0.9-2) Lipase (11-82) U/L TSH (0.300-4.500) uIu/ml Free T4 (0.61-1.60) ng/dl Random Cortisol mcg/dl Urine Color Urine Appearance (Clear) Urine pH (4.5-7.5) Ur Specific [place] (1.000-1.030) Urine Protein (Negative) Urine Glucose (UA) (Negative) Urine Ketones (Negative) Urine Blood (Negative) Urine Nitrite (Negative) Urine Bilirubin (Negative) Urine Urobilinogen (Negative) Ur Leukocyte Esterase (Negative) Urine WBC (Auto) (0-5) /hpf Urine RBC (Auto) (0-4) /hpf U Hyaline Cast (Auto) (0-5) /lpf U Epithel Cells (Auto) (0-5) /lpf Urine Bacteria (Auto) (Negative) Urine Yeast Ur Random Creatinine mg/dl U Random Total Protein (0-11.9) mg/dl Protein/Creatinin Ratio (0-0.2) Urine Sodium mmol/L Urine Potassium mmol/L Urine Chloride mmol/L Nasal Screen MRSA (PCR) (Negative) Adenovirus (PCR) (NotDetected) B. pertussis DNA (PCR) (NotDetected) B.parapertussis DNA PCR (NotDetected) C. pneumoniae DNA (PCR) (NotDetected) Coronavirus OC43 (PCR) (NotDetected) Coronavirus HKU1 (PCR) (NotDetected) Coronavirus 229E (PCR) (NotDetected) SARS-CoV-2 (PCR) (NotDetected) Coronavirus NL63 (PCR) (NotDetected) Human Metapneumovir PCR (NotDetected) Influenza Type A (PCR) (NotDetected) Influenza Type B (PCR) (NotDetected) M. pneumoniae (PCR) (NotDetected) Parainfluenza 1 (PCR) (NotDetected) Parainfluenza 2 (PCR) (NotDetected) Parainfluenza 3 (PCR) (NotDetected) Parainfluenza 4 (PCR) (NotDetected) RSV (PCR) (NotDetected) Entero/Rhino (PCR) (NotDetected) Blood Type Antibody Screen 11/23/23 11/24/23 11/24/23 Range/Units 20:55 07:18 11:10 WBC (4.8-10.8) K/ul RBC (4.20-5.40) M/uL Hgb (12.0-16.0) g/dl POC Hgb (12.0-16.0) g/dl Hct (37.0-47.0) % POC Hct (37-47) % MCV (80.0-100.0) fL MCH (25.0-34.0) pg MCHC (32.0-36.0) g/dL RDW Std Deviation (36.4-46.3) fL RDW Coeff of Adolfo (11.5-14.5) % Plt Count (130-400) K/uL MPV (9.4-12.4) fL Immature Gran % (Auto) % Neut % (Auto) % Lymph % (Auto) % [place] % (Auto) % Eos % (Auto) % Baso % (Auto) % Neut # (Auto) (1.40-6.50) K/uL Lymph # (Auto) (1.20-3.40) K/uL [place] # (Auto) (0.11-0.59) K/uL Eos # (Auto) (0.00-0.50) K/uL Baso # (Auto) (0.00-0.20) K/uL Immature Gran # (Auto) (0.01-0.20) K/uL Toxic Vacuolation ESR (0-30) mm/hr PT (9.0-12.0) Seconds INR (0.9-1.1) POC pH (7.35-7.45) POC pCO2 (35-46) mmHg POC pO2 (80-95) mmHg POC HCO3 (19-24) adam/L POC Total CO2 (24-31) mmol/L POC Base Excess (-9-1.8) adam/L POC ABG O2 Sat (90-95) % VBG pH (7.36-7.41) VBG pCO2 (38-50) mmHg VBG pO2 mmHg VBG HCO3 mmol/L VBG O2 Saturation % VBG Base Excess mEq/L POC Sodium (135-144) mmol/L Sodium (136-145) mmol/L POC Potassium (3.3-5.0) mmol/L Potassium Chloride (98-107) mmol/L Carbon Dioxide (21-32) mmol/L Anion Gap (3-11) BUN (6-23) mg/dl Creatinine (0.6-1.2) mg/dl Est Cr Clr Drug Dosing ml/min Est GFR ( Amer) ml/min Est GFR (Non-Af Amer) ml/min BUN/Creatinine Ratio (10-20) Glucose (70-99(Fasting)) mg/dl POC Glucose 178 H 199 H 168 H (70-99) mg/dl POC Glucose (other) (70-99) mg/dl Estimat Average Glucose mg/dl Hemoglobin A1c (4.5-5.6) % Lactate (0.4-2.0) mmol/L Calcium (8.6-10.3) mg/dl Ionized Calcium (1.12-1.32) mmol/L Phosphorus (2.5-4.9) mg/dl Magnesium (1.7-2.4) mg/dl Total Bilirubin (0.2-1.0) mg/dl AST ALT (7-52) U/L Alkaline Phosphatase (34-104) U/L Troponin I High Sens (0-14) pg/ml C-Reactive Protein (0-0.5) mg/dl Total Protein (6.0-8.3) gm/dl Albumin (3.4-5.0) gm/dl Globulin (2.5-4.0) gm/dl Albumin/Globulin Ratio (0.9-2) Lipase (11-82) U/L TSH (0.300-4.500) uIu/ml Free T4 (0.61-1.60) ng/dl Random Cortisol mcg/dl Urine Color Urine Appearance (Clear) Urine pH (4.5-7.5) Ur Specific [place] (1.000-1.030) Urine Protein (Negative) Urine Glucose (UA) (Negative) Urine Ketones (Negative) Urine Blood (Negative) Urine Nitrite (Negative) Urine Bilirubin (Negative) Urine Urobilinogen (Negative) Ur Leukocyte Esterase (Negative) Urine WBC (Auto) (0-5) /hpf Urine RBC (Auto) (0-4) /hpf U Hyaline Cast (Auto) (0-5) /lpf U Epithel Cells (Auto) (0-5) /lpf Urine Bacteria (Auto) (Negative) Urine Yeast Ur Random Creatinine mg/dl U Random Total Protein (0-11.9) mg/dl Protein/Creatinin Ratio (0-0.2) Urine Sodium mmol/L Urine Potassium mmol/L Urine Chloride mmol/L Nasal Screen MRSA (PCR) (Negative) Adenovirus (PCR) (NotDetected) B. pertussis DNA (PCR) (NotDetected) B.parapertussis DNA PCR (NotDetected) C. pneumoniae DNA (PCR) (NotDetected) Coronavirus OC43 (PCR) (NotDetected) Coronavirus HKU1 (PCR) (NotDetected) Coronavirus 229E (PCR) (NotDetected) SARS-CoV-2 (PCR) (NotDetected) Coronavirus NL63 (PCR) (NotDetected) Human Metapneumovir PCR (NotDetected) Influenza Type A (PCR) (NotDetected) Influenza Type B (PCR) (NotDetected) M. pneumoniae (PCR) (NotDetected) Parainfluenza 1 (PCR) (NotDetected) Parainfluenza 2 (PCR) (NotDetected) Parainfluenza 3 (PCR) (NotDetected) Parainfluenza 4 (PCR) (NotDetected) RSV (PCR) (NotDetected) Entero/Rhino (PCR) (NotDetected) Blood Type Antibody Screen 11/24/23 11/24/23 11/24/23 Range/Units 16:24 20:33 22:25 WBC 15.54 H (4.8-10.8) K/ul RBC 4.71 (4.20-5.40) M/uL Hgb 12.8 (12.0-16.0) g/dl POC Hgb (12.0-16.0) g/dl Hct 42.0 (37.0-47.0) % POC Hct (37-47) % MCV 89.2 (80.0-100.0) fL MCH 27.2 (25.0-34.0) pg MCHC 30.5 L (32.0-36.0) g/dL RDW Std Deviation 49.8 H (36.4-46.3) fL RDW Coeff of Adolfo 15.2 H (11.5-14.5) % Plt Count 298 (130-400) K/uL MPV 10.4 (9.4-12.4) fL Immature Gran % (Auto) 0.5 % Neut % (Auto) 84.2 % Lymph % (Auto) 6.9 % [place] % (Auto) 5.4 % Eos % (Auto) 2.6 % Baso % (Auto) 0.4 % Neut # (Auto) 13.09 H (1.40-6.50) K/uL Lymph # (Auto) 1.07 L (1.20-3.40) K/uL [place] # (Auto) 0.84 H (0.11-0.59) K/uL Eos # (Auto) 0.41 (0.00-0.50) K/uL Baso # (Auto) 0.06 (0.00-0.20) K/uL Immature Gran # (Auto) 0.07 (0.01-0.20) K/uL Toxic Vacuolation ESR (0-30) mm/hr PT (9.0-12.0) Seconds INR (0.9-1.1) POC pH (7.35-7.45) POC pCO2 (35-46) mmHg POC pO2 (80-95) mmHg POC HCO3 (19-24) adam/L POC Total CO2 (24-31) mmol/L POC Base Excess (-9-1.8) adam/L POC ABG O2 Sat (90-95) % VBG pH (7.36-7.41) VBG pCO2 (38-50) mmHg VBG pO2 mmHg VBG HCO3 mmol/L VBG O2 Saturation % VBG Base Excess mEq/L POC Sodium (135-144) mmol/L Sodium 137 (136-145) mmol/L POC Potassium (3.3-5.0) mmol/L Potassium 4.0 Chloride 94 L (98-107) mmol/L Carbon Dioxide 34 H (21-32) mmol/L Anion Gap 9 (3-11) BUN 30 H (6-23) mg/dl Creatinine 1.92 H (0.6-1.2) mg/dl Est Cr Clr Drug Dosing 35.1 ml/min Est GFR ( Amer) 30.5 ml/min Est GFR (Non-Af Amer) 26.3 ml/min BUN/Creatinine Ratio 15.6 (10-20) Glucose 219 H (70-99(Fasting)) mg/dl POC Glucose 132 H 163 H (70-99) mg/dl POC Glucose (other) (70-99) mg/dl Estimat Average Glucose mg/dl Hemoglobin A1c (4.5-5.6) % Lactate 3.2 H* (0.4-2.0) mmol/L Calcium 9.7 (8.6-10.3) mg/dl Ionized Calcium (1.12-1.32) mmol/L Phosphorus (2.5-4.9) mg/dl Magnesium 1.8 (1.7-2.4) mg/dl Total Bilirubin 0.4 (0.2-1.0) mg/dl AST 11 L ALT 9 (7-52) U/L Alkaline Phosphatase 101 (34-104) U/L Troponin I High Sens (0-14) pg/ml C-Reactive Protein (0-0.5) mg/dl Total Protein 8.1 (6.0-8.3) gm/dl Albumin 4.0 (3.4-5.0) gm/dl Globulin 4.1 H (2.5-4.0) gm/dl Albumin/Globulin Ratio 1.0 (0.9-2) Lipase (11-82) U/L TSH (0.300-4.500) uIu/ml Free T4 (0.61-1.60) ng/dl Random Cortisol mcg/dl Urine Color Urine Appearance (Clear) Urine pH (4.5-7.5) Ur Specific [place] (1.000-1.030) Urine Protein (Negative) Urine Glucose (UA) (Negative) Urine Ketones (Negative) Urine Blood (Negative) Urine Nitrite (Negative) Urine Bilirubin (Negative) Urine Urobilinogen (Negative) Ur Leukocyte Esterase (Negative) Urine WBC (Auto) (0-5) /hpf Urine RBC (Auto) (0-4) /hpf U Hyaline Cast (Auto) (0-5) /lpf U Epithel Cells (Auto) (0-5) /lpf Urine Bacteria (Auto) (Negative) Urine Yeast Ur Random Creatinine mg/dl U Random Total Protein (0-11.9) mg/dl Protein/Creatinin Ratio (0-0.2) Urine Sodium mmol/L Urine Potassium mmol/L Urine Chloride mmol/L Nasal Screen MRSA (PCR) (Negative) Adenovirus (PCR) (NotDetected) B. pertussis DNA (PCR) (NotDetected) B.parapertussis DNA PCR (NotDetected) C. pneumoniae DNA (PCR) (NotDetected) Coronavirus OC43 (PCR) (NotDetected) Coronavirus HKU1 (PCR) (NotDetected) Coronavirus 229E (PCR) (NotDetected) SARS-CoV-2 (PCR) (NotDetected) Coronavirus NL63 (PCR) (NotDetected) Human Metapneumovir PCR (NotDetected) Influenza Type A (PCR) (NotDetected) Influenza Type B (PCR) (NotDetected) M. pneumoniae (PCR) (NotDetected) Parainfluenza 1 (PCR) (NotDetected) Parainfluenza 2 (PCR) (NotDetected) Parainfluenza 3 (PCR) (NotDetected) Parainfluenza 4 (PCR) (NotDetected) RSV (PCR) (NotDetected) Entero/Rhino (PCR) (NotDetected) Blood Type Antibody Screen 11/24/23 11/25/23 11/25/23 Range/Units 23:59 00:13 03:04 WBC (4.8-10.8) K/ul RBC (4.20-5.40) M/uL Hgb (12.0-16.0) g/dl POC Hgb 11.6 L (12.0-16.0) g/dl Hct (37.0-47.0) % POC Hct 34 L (37-47) % MCV (80.0-100.0) fL MCH (25.0-34.0) pg MCHC (32.0-36.0) g/dL RDW Std Deviation (36.4-46.3) fL RDW Coeff of Adolfo (11.5-14.5) % Plt Count (130-400) K/uL MPV (9.4-12.4) fL Immature Gran % (Auto) % Neut % (Auto) % Lymph % (Auto) % [place] % (Auto) % Eos % (Auto) % Baso % (Auto) % Neut # (Auto) (1.40-6.50) K/uL Lymph # (Auto) (1.20-3.40) K/uL [place] # (Auto) (0.11-0.59) K/uL Eos # (Auto) (0.00-0.50) K/uL Baso # (Auto) (0.00-0.20) K/uL Immature Gran # (Auto) (0.01-0.20) K/uL Toxic Vacuolation ESR (0-30) mm/hr PT (9.0-12.0) Seconds INR (0.9-1.1) POC pH 7.45 (7.35-7.45) POC pCO2 41 (35-46) mmHg POC pO2 71 L (80-95) mmHg POC HCO3 28 H (19-24) adam/L POC Total CO2 30 (24-31) mmol/L POC Base Excess 4.0 H (-9-1.8) adam/L POC ABG O2 Sat 95.0 (90-95) % VBG pH (7.36-7.41) VBG pCO2 (38-50) mmHg VBG pO2 mmHg VBG HCO3 mmol/L VBG O2 Saturation % VBG Base Excess mEq/L POC Sodium 134 L (135-144) mmol/L Sodium (136-145) mmol/L POC Potassium 3.8 (3.3-5.0) mmol/L Potassium Chloride (98-107) mmol/L Carbon Dioxide (21-32) mmol/L Anion Gap (3-11) BUN (6-23) mg/dl Creatinine (0.6-1.2) mg/dl Est Cr Clr Drug Dosing ml/min Est GFR ( Amer) ml/min Est GFR (Non-Af Amer) ml/min BUN/Creatinine Ratio (10-20) Glucose (70-99(Fasting)) mg/dl POC Glucose 202 H (70-99) mg/dl POC Glucose (other) (70-99) mg/dl Estimat Average Glucose mg/dl Hemoglobin A1c (4.5-5.6) % Lactate (0.4-2.0) mmol/L Calcium (8.6-10.3) mg/dl Ionized Calcium (1.12-1.32) mmol/L Phosphorus (2.5-4.9) mg/dl Magnesium (1.7-2.4) mg/dl Total Bilirubin (0.2-1.0) mg/dl AST ALT (7-52) U/L Alkaline Phosphatase (34-104) U/L Troponin I High Sens (0-14) pg/ml C-Reactive Protein (0-0.5) mg/dl Total Protein (6.0-8.3) gm/dl Albumin (3.4-5.0) gm/dl Globulin (2.5-4.0) gm/dl Albumin/Globulin Ratio (0.9-2) Lipase (11-82) U/L TSH (0.300-4.500) uIu/ml Free T4 (0.61-1.60) ng/dl Random Cortisol mcg/dl Urine Color [place] Urine Appearance Turbid A (Clear) Urine pH 7.0 (4.5-7.5) Ur Specific [place] 1.011 (1.000-1.030) Urine Protein 3+ H (Negative) Urine Glucose (UA) Negative (Negative) Urine Ketones Negative (Negative) Urine Blood 3+ H (Negative) Urine Nitrite Negative (Negative) Urine Bilirubin Negative (Negative) Urine Urobilinogen Negative (Negative) Ur Leukocyte Esterase 3+ H (Negative) Urine WBC (Auto) >30 H (0-5) /hpf Urine RBC (Auto) >30 H (0-4) /hpf U Hyaline Cast (Auto) 1-5 (0-5) /lpf U Epithel Cells (Auto) 10-20 H (0-5) /lpf Urine Bacteria (Auto) Negative (Negative) Urine Yeast Not Reportable Ur Random Creatinine mg/dl U Random Total Protein (0-11.9) mg/dl Protein/Creatinin Ratio (0-0.2) Urine Sodium mmol/L Urine Potassium mmol/L Urine Chloride mmol/L Nasal Screen MRSA (PCR) (Negative) Adenovirus (PCR) (NotDetected) B. pertussis DNA (PCR) (NotDetected) B.parapertussis DNA PCR (NotDetected) C. pneumoniae DNA (PCR) (NotDetected) Coronavirus OC43 (PCR) (NotDetected) Coronavirus HKU1 (PCR) (NotDetected) Coronavirus 229E (PCR) (NotDetected) SARS-CoV-2 (PCR) (NotDetected) Coronavirus NL63 (PCR) (NotDetected) Human Metapneumovir PCR (NotDetected) Influenza Type A (PCR) (NotDetected) Influenza Type B (PCR) (NotDetected) M. pneumoniae (PCR) (NotDetected) Parainfluenza 1 (PCR) (NotDetected) Parainfluenza 2 (PCR) (NotDetected) Parainfluenza 3 (PCR) (NotDetected) Parainfluenza 4 (PCR) (NotDetected) RSV (PCR) (NotDetected) Entero/Rhino (PCR) (NotDetected) Blood Type Antibody Screen 11/25/23 11/25/23 11/25/23 Range/Units 05:19 12:09 12:54 WBC 12.60 H (4.8-10.8) K/ul RBC 3.96 L (4.20-5.40) M/uL Hgb 10.7 L (12.0-16.0) g/dl POC Hgb (12.0-16.0) g/dl Hct 35.5 L (37.0-47.0) % POC Hct (37-47) % MCV 89.6 (80.0-100.0) fL MCH 27.0 (25.0-34.0) pg MCHC 30.1 L (32.0-36.0) g/dL RDW Std Deviation 50.7 H (36.4-46.3) fL RDW Coeff of Adolfo 15.4 H (11.5-14.5) % Plt Count 278 (130-400) K/uL MPV 10.1 (9.4-12.4) fL Immature Gran % (Auto) 0.6 % Neut % (Auto) 90.9 % Lymph % (Auto) 4.4 % [place] % (Auto) 2.5 % Eos % (Auto) 1.3 % Baso % (Auto) 0.3 % Neut # (Auto) 11.46 H (1.40-6.50) K/uL Lymph # (Auto) 0.55 L (1.20-3.40) K/uL [place] # (Auto) 0.32 (0.11-0.59) K/uL Eos # (Auto) 0.16 (0.00-0.50) K/uL Baso # (Auto) 0.04 (0.00-0.20) K/uL Immature Gran # (Auto) 0.07 (0.01-0.20) K/uL Toxic Vacuolation ESR 67 H (0-30) mm/hr PT (9.0-12.0) Seconds INR (0.9-1.1) POC pH (7.35-7.45) POC pCO2 (35-46) mmHg POC pO2 (80-95) mmHg POC HCO3 (19-24) adam/L POC Total CO2 (24-31) mmol/L POC Base Excess (-9-1.8) adam/L POC ABG O2 Sat (90-95) % VBG pH (7.36-7.41) VBG pCO2 (38-50) mmHg VBG pO2 mmHg VBG HCO3 mmol/L VBG O2 Saturation % VBG Base Excess mEq/L POC Sodium (135-144) mmol/L Sodium 135 L (136-145) mmol/L POC Potassium (3.3-5.0) mmol/L Potassium 3.9 Chloride 99 (98-107) mmol/L Carbon Dioxide 30 (21-32) mmol/L Anion Gap 6 (3-11) BUN 31 H (6-23) mg/dl Creatinine 1.87 H (0.6-1.2) mg/dl Est Cr Clr Drug Dosing 38.5 ml/min Est GFR ( Amer) 31.5 ml/min Est GFR (Non-Af Amer) 27.1 ml/min BUN/Creatinine Ratio 16.6 (10-20) Glucose 162 H (70-99(Fasting)) mg/dl POC Glucose 146 H 115 H 125 H (70-99) mg/dl POC Glucose (other) (70-99) mg/dl Estimat Average Glucose mg/dl Hemoglobin A1c (4.5-5.6) % Lactate 1.5 (0.4-2.0) mmol/L Calcium 8.4 L (8.6-10.3) mg/dl Ionized Calcium (1.12-1.32) mmol/L Phosphorus (2.5-4.9) mg/dl Magnesium 1.5 L (1.7-2.4) mg/dl Total Bilirubin (0.2-1.0) mg/dl AST ALT (7-52) U/L Alkaline Phosphatase (34-104) U/L Troponin I High Sens 10.3 (0-14) pg/ml C-Reactive Protein 6.34 H (0-0.5) mg/dl Total Protein (6.0-8.3) gm/dl Albumin (3.4-5.0) gm/dl Globulin (2.5-4.0) gm/dl Albumin/Globulin Ratio (0.9-2) Lipase 11 (11-82) U/L TSH (0.300-4.500) uIu/ml Free T4 (0.61-1.60) ng/dl Random Cortisol mcg/dl Urine Color Urine Appearance (Clear) Urine pH (4.5-7.5) Ur Specific [place] (1.000-1.030) Urine Protein (Negative) Urine Glucose (UA) (Negative) Urine Ketones (Negative) Urine Blood (Negative) Urine Nitrite (Negative) Urine Bilirubin (Negative) Urine Urobilinogen (Negative) Ur Leukocyte Esterase (Negative) Urine WBC (Auto) (0-5) /hpf Urine RBC (Auto) (0-4) /hpf U Hyaline Cast (Auto) (0-5) /lpf U Epithel Cells (Auto) (0-5) /lpf Urine Bacteria (Auto) (Negative) Urine Yeast Ur Random Creatinine mg/dl U Random Total Protein (0-11.9) mg/dl Protein/Creatinin Ratio (0-0.2) Urine Sodium mmol/L Urine Potassium mmol/L Urine Chloride mmol/L Nasal Screen MRSA (PCR) (Negative) Adenovirus (PCR) (NotDetected) B. pertussis DNA (PCR) (NotDetected) B.parapertussis DNA PCR (NotDetected) C. pneumoniae DNA (PCR) (NotDetected) Coronavirus OC43 (PCR) (NotDetected) Coronavirus HKU1 (PCR) (NotDetected) Coronavirus 229E (PCR) (NotDetected) SARS-CoV-2 (PCR) (NotDetected) Coronavirus NL63 (PCR) (NotDetected) Human Metapneumovir PCR (NotDetected) Influenza Type A (PCR) (NotDetected) Influenza Type B (PCR) (NotDetected) M. pneumoniae (PCR) (NotDetected) Parainfluenza 1 (PCR) (NotDetected) Parainfluenza 2 (PCR) (NotDetected) Parainfluenza 3 (PCR) (NotDetected) Parainfluenza 4 (PCR) (NotDetected) RSV (PCR) (NotDetected) Entero/Rhino (PCR) (NotDetected) Blood Type Antibody Screen 11/25/23 11/25/23 11/25/23 Range/Units 17:55 18:41 19:43 WBC 26.59 H D (4.8-10.8) K/ul RBC 3.56 L (4.20-5.40) M/uL Hgb 9.9 L (12.0-16.0) g/dl POC Hgb (12.0-16.0) g/dl Hct 31.7 L (37.0-47.0) % POC Hct (37-47) % MCV 89.0 (80.0-100.0) fL MCH 27.8 (25.0-34.0) pg MCHC 31.2 L (32.0-36.0) g/dL RDW Std Deviation 51.6 H (36.4-46.3) fL RDW Coeff of Adolfo 15.8 H (11.5-14.5) % Plt Count 296 (130-400) K/uL MPV 10.7 (9.4-12.4) fL Immature Gran % (Auto) 1.0 % Neut % (Auto) 94.8 % Lymph % (Auto) 1.0 % [place] % (Auto) 2.3 % Eos % (Auto) 0.7 % Baso % (Auto) 0.2 % Neut # (Auto) 25.20 H (1.40-6.50) K/uL Lymph # (Auto) 0.27 L (1.20-3.40) K/uL [place] # (Auto) 0.61 H (0.11-0.59) K/uL Eos # (Auto) 0.19 (0.00-0.50) K/uL Baso # (Auto) 0.06 (0.00-0.20) K/uL Immature Gran # (Auto) 0.26 H (0.01-0.20) K/uL Toxic Vacuolation 1+ ESR (0-30) mm/hr PT (9.0-12.0) Seconds INR (0.9-1.1) POC pH (7.35-7.45) POC pCO2 (35-46) mmHg POC pO2 (80-95) mmHg POC HCO3 (19-24) adam/L POC Total CO2 (24-31) mmol/L POC Base Excess (-9-1.8) adam/L POC ABG O2 Sat (90-95) % VBG pH (7.36-7.41) VBG pCO2 (38-50) mmHg VBG pO2 mmHg VBG HCO3 mmol/L VBG O2 Saturation % VBG Base Excess mEq/L POC Sodium (135-144) mmol/L Sodium 134 L (136-145) mmol/L POC Potassium (3.3-5.0) mmol/L Potassium TNP Chloride 100 (98-107) mmol/L Carbon Dioxide 27 (21-32) mmol/L Anion Gap 7 (3-11) BUN 34 H (6-23) mg/dl Creatinine 2.43 H D (0.6-1.2) mg/dl Est Cr Clr Drug Dosing 29.6 ml/min Est GFR ( Amer) 22.9 ml/min Est GFR (Non-Af Amer) 19.8 ml/min BUN/Creatinine Ratio 14.0 (10-20) Glucose 119 H (70-99(Fasting)) mg/dl POC Glucose 125 H 94 (70-99) mg/dl POC Glucose (other) (70-99) mg/dl Estimat Average Glucose mg/dl Hemoglobin A1c (4.5-5.6) % Lactate 1.4 (0.4-2.0) mmol/L Calcium 8.0 L (8.6-10.3) mg/dl Ionized Calcium (1.12-1.32) mmol/L Phosphorus 3.2 (2.5-4.9) mg/dl Magnesium 1.9 (1.7-2.4) mg/dl Total Bilirubin 0.8 (0.2-1.0) mg/dl AST TNP ALT 15 (7-52) U/L Alkaline Phosphatase 69 (34-104) U/L Troponin I High Sens (0-14) pg/ml C-Reactive Protein (0-0.5) mg/dl Total Protein 6.2 D (6.0-8.3) gm/dl Albumin 2.9 L (3.4-5.0) gm/dl Globulin 3.3 (2.5-4.0) gm/dl Albumin/Globulin Ratio 0.9 (0.9-2) Lipase (11-82) U/L TSH (0.300-4.500) uIu/ml Free T4 (0.61-1.60) ng/dl Random Cortisol 26.12 mcg/dl Urine Color Urine Appearance (Clear) Urine pH (4.5-7.5) Ur Specific [place] (1.000-1.030) Urine Protein (Negative) Urine Glucose (UA) (Negative) Urine Ketones (Negative) Urine Blood (Negative) Urine Nitrite (Negative) Urine Bilirubin (Negative) Urine Urobilinogen (Negative) Ur Leukocyte Esterase (Negative) Urine WBC (Auto) (0-5) /hpf Urine RBC (Auto) (0-4) /hpf U Hyaline Cast (Auto) (0-5) /lpf U Epithel Cells (Auto) (0-5) /lpf Urine Bacteria (Auto) (Negative) Urine Yeast Ur Random Creatinine mg/dl U Random Total Protein (0-11.9) mg/dl Protein/Creatinin Ratio (0-0.2) Urine Sodium mmol/L Urine Potassium mmol/L Urine Chloride mmol/L Nasal Screen MRSA (PCR) (Negative) Adenovirus (PCR) (NotDetected) B. pertussis DNA (PCR) (NotDetected) B.parapertussis DNA PCR (NotDetected) C. pneumoniae DNA (PCR) (NotDetected) Coronavirus OC43 (PCR) (NotDetected) Coronavirus HKU1 (PCR) (NotDetected) Coronavirus 229E (PCR) (NotDetected) SARS-CoV-2 (PCR) (NotDetected) Coronavirus NL63 (PCR) (NotDetected) Human Metapneumovir PCR (NotDetected) Influenza Type A (PCR) (NotDetected) Influenza Type B (PCR) (NotDetected) M. pneumoniae (PCR) (NotDetected) Parainfluenza 1 (PCR) (NotDetected) Parainfluenza 2 (PCR) (NotDetected) Parainfluenza 3 (PCR) (NotDetected) Parainfluenza 4 (PCR) (NotDetected) RSV (PCR) (NotDetected) Entero/Rhino (PCR) (NotDetected) Blood Type Antibody Screen 11/25/23 11/25/23 11/25/23 Range/Units 19:54 23:44 Unknown WBC (4.8-10.8) K/ul RBC (4.20-5.40) M/uL Hgb (12.0-16.0) g/dl POC Hgb (12.0-16.0) g/dl Hct (37.0-47.0) % POC Hct (37-47) % MCV (80.0-100.0) fL MCH (25.0-34.0) pg MCHC (32.0-36.0) g/dL RDW Std Deviation (36.4-46.3) fL RDW Coeff of Adolfo (11.5-14.5) % Plt Count (130-400) K/uL MPV (9.4-12.4) fL Immature Gran % (Auto) % Neut % (Auto) % Lymph % (Auto) % [place] % (Auto) % Eos % (Auto) % Baso % (Auto) % Neut # (Auto) (1.40-6.50) K/uL Lymph # (Auto) (1.20-3.40) K/uL [place] # (Auto) (0.11-0.59) K/uL Eos # (Auto) (0.00-0.50) K/uL Baso # (Auto) (0.00-0.20) K/uL Immature Gran # (Auto) (0.01-0.20) K/uL Toxic Vacuolation ESR (0-30) mm/hr PT (9.0-12.0) Seconds INR (0.9-1.1) POC pH (7.35-7.45) POC pCO2 (35-46) mmHg POC pO2 (80-95) mmHg POC HCO3 (19-24) adam/L POC Total CO2 (24-31) mmol/L POC Base Excess (-9-1.8) adam/L POC ABG O2 Sat (90-95) % VBG pH (7.36-7.41) VBG pCO2 (38-50) mmHg VBG pO2 mmHg VBG HCO3 mmol/L VBG O2 Saturation % VBG Base Excess mEq/L POC Sodium (135-144) mmol/L Sodium (136-145) mmol/L POC Potassium (3.3-5.0) mmol/L Potassium 4.5 Chloride (98-107) mmol/L Carbon Dioxide (21-32) mmol/L Anion Gap (3-11) BUN (6-23) mg/dl Creatinine (0.6-1.2) mg/dl Est Cr Clr Drug Dosing ml/min Est GFR ( Amer) ml/min Est GFR (Non-Af Amer) ml/min BUN/Creatinine Ratio (10-20) Glucose (70-99(Fasting)) mg/dl POC Glucose 100 H (70-99) mg/dl POC Glucose (other) (70-99) mg/dl Estimat Average Glucose mg/dl Hemoglobin A1c (4.5-5.6) % Lactate (0.4-2.0) mmol/L Calcium (8.6-10.3) mg/dl Ionized Calcium (1.12-1.32) mmol/L Phosphorus (2.5-4.9) mg/dl Magnesium (1.7-2.4) mg/dl Total Bilirubin (0.2-1.0) mg/dl AST 24 ALT (7-52) U/L Alkaline Phosphatase (34-104) U/L Troponin I High Sens (0-14) pg/ml C-Reactive Protein (0-0.5) mg/dl Total Protein (6.0-8.3) gm/dl Albumin (3.4-5.0) gm/dl Globulin (2.5-4.0) gm/dl Albumin/Globulin Ratio (0.9-2) Lipase (11-82) U/L TSH (0.300-4.500) uIu/ml Free T4 (0.61-1.60) ng/dl Random Cortisol mcg/dl Urine Color Urine Appearance (Clear) Urine pH (4.5-7.5) Ur Specific [place] (1.000-1.030) Urine Protein (Negative) Urine Glucose (UA) (Negative) Urine Ketones (Negative) Urine Blood (Negative) Urine Nitrite (Negative) Urine Bilirubin (Negative) Urine Urobilinogen (Negative) Ur Leukocyte Esterase (Negative) Urine WBC (Auto) (0-5) /hpf Urine RBC (Auto) (0-4) /hpf U Hyaline Cast (Auto) (0-5) /lpf U Epithel Cells (Auto) (0-5) /lpf Urine Bacteria (Auto) (Negative) Urine Yeast Ur Random Creatinine mg/dl U Random Total Protein (0-11.9) mg/dl Protein/Creatinin Ratio (0-0.2) Urine Sodium mmol/L Urine Potassium mmol/L Urine Chloride mmol/L Nasal Screen MRSA (PCR) Negative (Negative) Adenovirus (PCR) (NotDetected) B. pertussis DNA (PCR) (NotDetected) B.parapertussis DNA PCR (NotDetected) C. pneumoniae DNA (PCR) (NotDetected) Coronavirus OC43 (PCR) (NotDetected) Coronavirus HKU1 (PCR) (NotDetected) Coronavirus 229E (PCR) (NotDetected) SARS-CoV-2 (PCR) (NotDetected) Coronavirus NL63 (PCR) (NotDetected) Human Metapneumovir PCR (NotDetected) Influenza Type A (PCR) (NotDetected) Influenza Type B (PCR) (NotDetected) M. pneumoniae (PCR) (NotDetected) Parainfluenza 1 (PCR) (NotDetected) Parainfluenza 2 (PCR) (NotDetected) Parainfluenza 3 (PCR) (NotDetected) Parainfluenza 4 (PCR) (NotDetected) RSV (PCR) (NotDetected) Entero/Rhino (PCR) (NotDetected) Blood Type Antibody Screen 11/25/23 11/26/23 11/26/23 Range/Units Unknown 03:44 03:47 WBC 20.79 H (4.8-10.8) K/ul RBC 3.37 L (4.20-5.40) M/uL Hgb 9.2 L (12.0-16.0) g/dl POC Hgb (12.0-16.0) g/dl Hct 30.5 L (37.0-47.0) % POC Hct (37-47) % MCV 90.5 (80.0-100.0) fL MCH 27.3 (25.0-34.0) pg MCHC 30.2 L (32.0-36.0) g/dL RDW Std Deviation 53.1 H (36.4-46.3) fL RDW Coeff of Adolfo 15.9 H (11.5-14.5) % Plt Count 248 (130-400) K/uL MPV 10.7 (9.4-12.4) fL Immature Gran % (Auto) 0.7 % Neut % (Auto) 92.9 % Lymph % (Auto) 1.2 % [place] % (Auto) 2.6 % Eos % (Auto) 2.3 % Baso % (Auto) 0.3 % Neut # (Auto) 19.32 H (1.40-6.50) K/uL Lymph # (Auto) 0.24 L (1.20-3.40) K/uL [place] # (Auto) 0.54 (0.11-0.59) K/uL Eos # (Auto) 0.48 (0.00-0.50) K/uL Baso # (Auto) 0.06 (0.00-0.20) K/uL Immature Gran # (Auto) 0.15 (0.01-0.20) K/uL Toxic Vacuolation ESR (0-30) mm/hr PT (9.0-12.0) Seconds INR (0.9-1.1) POC pH (7.35-7.45) POC pCO2 (35-46) mmHg POC pO2 (80-95) mmHg POC HCO3 (19-24) adam/L POC Total CO2 (24-31) mmol/L POC Base Excess (-9-1.8) adam/L POC ABG O2 Sat (90-95) % VBG pH 7.34 L (7.36-7.41) VBG pCO2 51 H (38-50) mmHg VBG pO2 62 mmHg VBG HCO3 28 mmol/L VBG O2 Saturation 93.5 % VBG Base Excess 0.9 mEq/L POC Sodium (135-144) mmol/L Sodium 136 (136-145) mmol/L POC Potassium (3.3-5.0) mmol/L Potassium 4.3 Chloride 102 (98-107) mmol/L Carbon Dioxide 26 (21-32) mmol/L Anion Gap 8 (3-11) BUN 40 H (6-23) mg/dl Creatinine 2.54 H (0.6-1.2) mg/dl Est Cr Clr Drug Dosing 28.3 ml/min Est GFR ( Amer) 21.7 ml/min Est GFR (Non-Af Amer) 18.7 ml/min BUN/Creatinine Ratio 15.7 (10-20) Glucose 117 H (70-99(Fasting)) mg/dl POC Glucose (70-99) mg/dl POC Glucose (other) (70-99) mg/dl Estimat Average Glucose mg/dl Hemoglobin A1c (4.5-5.6) % Lactate 1.7 (0.4-2.0) mmol/L Calcium 7.9 L (8.6-10.3) mg/dl Ionized Calcium 1.15 (1.12-1.32) mmol/L Phosphorus 3.7 (2.5-4.9) mg/dl Magnesium 1.9 (1.7-2.4) mg/dl Total Bilirubin (0.2-1.0) mg/dl AST ALT (7-52) U/L Alkaline Phosphatase (34-104) U/L Troponin I High Sens (0-14) pg/ml C-Reactive Protein (0-0.5) mg/dl Total Protein (6.0-8.3) gm/dl Albumin (3.4-5.0) gm/dl Globulin (2.5-4.0) gm/dl Albumin/Globulin Ratio (0.9-2) Lipase (11-82) U/L TSH 0.205 L (0.300-4.500) uIu/ml Free T4 1.05 (0.61-1.60) ng/dl Random Cortisol mcg/dl Urine Color Urine Appearance (Clear) Urine pH (4.5-7.5) Ur Specific [place] (1.000-1.030) Urine Protein (Negative) Urine Glucose (UA) (Negative) Urine Ketones (Negative) Urine Blood (Negative) Urine Nitrite (Negative) Urine Bilirubin (Negative) Urine Urobilinogen (Negative) Ur Leukocyte Esterase (Negative) Urine WBC (Auto) (0-5) /hpf Urine RBC (Auto) (0-4) /hpf U Hyaline Cast (Auto) (0-5) /lpf U Epithel Cells (Auto) (0-5) /lpf Urine Bacteria (Auto) (Negative) Urine Yeast Ur Random Creatinine mg/dl U Random Total Protein (0-11.9) mg/dl Protein/Creatinin Ratio (0-0.2) Urine Sodium mmol/L Urine Potassium mmol/L Urine Chloride mmol/L Nasal Screen MRSA (PCR) Negative (Negative) Adenovirus (PCR) Not Detected (NotDetected) B. pertussis DNA (PCR) Not Detected (NotDetected) B.parapertussis DNA PCR Not Detected (NotDetected) C. pneumoniae DNA (PCR) Not Detected (NotDetected) Coronavirus OC43 (PCR) Not Detected (NotDetected) Coronavirus HKU1 (PCR) Not Detected (NotDetected) Coronavirus 229E (PCR) Not Detected (NotDetected) SARS-CoV-2 (PCR) Not Detected (NotDetected) Coronavirus NL63 (PCR) Not Detected (NotDetected) Human Metapneumovir PCR Not Detected (NotDetected) Influenza Type A (PCR) Not Detected (NotDetected) Influenza Type B (PCR) Not Detected (NotDetected) M. pneumoniae (PCR) Not Detected (NotDetected) Parainfluenza 1 (PCR) Not Detected (NotDetected) Parainfluenza 2 (PCR) Not Detected (NotDetected) Parainfluenza 3 (PCR) Not Detected (NotDetected) Parainfluenza 4 (PCR) Not Detected (NotDetected) RSV (PCR) Not Detected (NotDetected) Entero/Rhino (PCR) Not Detected (NotDetected) Blood Type O Positive Antibody Screen NEGATIVE 11/26/23 11/26/23 11/26/23 Range/Units 05:26 08:10 08:27 WBC (4.8-10.8) K/ul RBC (4.20-5.40) M/uL Hgb (12.0-16.0) g/dl POC Hgb (12.0-16.0) g/dl Hct (37.0-47.0) % POC Hct (37-47) % MCV (80.0-100.0) fL MCH (25.0-34.0) pg MCHC (32.0-36.0) g/dL RDW Std Deviation (36.4-46.3) fL RDW Coeff of Adolfo (11.5-14.5) % Plt Count (130-400) K/uL MPV (9.4-12.4) fL Immature Gran % (Auto) % Neut % (Auto) % Lymph % (Auto) % [place] % (Auto) % Eos % (Auto) % Baso % (Auto) % Neut # (Auto) (1.40-6.50) K/uL Lymph # (Auto) (1.20-3.40) K/uL [place] # (Auto) (0.11-0.59) K/uL Eos # (Auto) (0.00-0.50) K/uL Baso # (Auto) (0.00-0.20) K/uL Immature Gran # (Auto) (0.01-0.20) K/uL Toxic Vacuolation ESR (0-30) mm/hr PT (9.0-12.0) Seconds INR (0.9-1.1) POC pH (7.35-7.45) POC pCO2 (35-46) mmHg POC pO2 (80-95) mmHg POC HCO3 (19-24) adam/L POC Total CO2 (24-31) mmol/L POC Base Excess (-9-1.8) adam/L POC ABG O2 Sat (90-95) % VBG pH (7.36-7.41) VBG pCO2 (38-50) mmHg VBG pO2 mmHg VBG HCO3 mmol/L VBG O2 Saturation % VBG Base Excess mEq/L POC Sodium (135-144) mmol/L Sodium (136-145) mmol/L POC Potassium (3.3-5.0) mmol/L Potassium Chloride (98-107) mmol/L Carbon Dioxide (21-32) mmol/L Anion Gap (3-11) BUN (6-23) mg/dl Creatinine (0.6-1.2) mg/dl Est Cr Clr Drug Dosing ml/min Est GFR ( Amer) ml/min Est GFR (Non-Af Amer) ml/min BUN/Creatinine Ratio (10-20) Glucose (70-99(Fasting)) mg/dl POC Glucose 116 H 120 H (70-99) mg/dl POC Glucose (other) (70-99) mg/dl Estimat Average Glucose mg/dl Hemoglobin A1c (4.5-5.6) % Lactate (0.4-2.0) mmol/L Calcium (8.6-10.3) mg/dl Ionized Calcium (1.12-1.32) mmol/L Phosphorus (2.5-4.9) mg/dl Magnesium (1.7-2.4) mg/dl Total Bilirubin (0.2-1.0) mg/dl AST ALT (7-52) U/L Alkaline Phosphatase (34-104) U/L Troponin I High Sens (0-14) pg/ml C-Reactive Protein (0-0.5) mg/dl Total Protein (6.0-8.3) gm/dl Albumin (3.4-5.0) gm/dl Globulin (2.5-4.0) gm/dl Albumin/Globulin Ratio (0.9-2) Lipase (11-82) U/L TSH (0.300-4.500) uIu/ml Free T4 (0.61-1.60) ng/dl Random Cortisol mcg/dl Urine Color Urine Appearance (Clear) Urine pH (4.5-7.5) Ur Specific [place] (1.000-1.030) Urine Protein (Negative) Urine Glucose (UA) (Negative) Urine Ketones (Negative) Urine Blood (Negative) Urine Nitrite (Negative) Urine Bilirubin (Negative) Urine Urobilinogen (Negative) Ur Leukocyte Esterase (Negative) Urine WBC (Auto) (0-5) /hpf Urine RBC (Auto) (0-4) /hpf U Hyaline Cast (Auto) (0-5) /lpf U Epithel Cells (Auto) (0-5) /lpf Urine Bacteria (Auto) (Negative) Urine Yeast Ur Random Creatinine 57.5 mg/dl U Random Total Protein 105.6 H (0-11.9) mg/dl Protein/Creatinin Ratio 1.8 H (0-0.2) Urine Sodium 22 mmol/L Urine Potassium 54.5 mmol/L Urine Chloride 15 mmol/L Nasal Screen MRSA (PCR) (Negative) Adenovirus (PCR) (NotDetected) B. pertussis DNA (PCR) (NotDetected) B.parapertussis DNA PCR (NotDetected) C. pneumoniae DNA (PCR) (NotDetected) Coronavirus OC43 (PCR) (NotDetected) Coronavirus HKU1 (PCR) (NotDetected) Coronavirus 229E (PCR) (NotDetected) SARS-CoV-2 (PCR) (NotDetected) Coronavirus NL63 (PCR) (NotDetected) Human Metapneumovir PCR (NotDetected) Influenza Type A (PCR) (NotDetected) Influenza Type B (PCR) (NotDetected) M. pneumoniae (PCR) (NotDetected) Parainfluenza 1 (PCR) (NotDetected) Parainfluenza 2 (PCR) (NotDetected) Parainfluenza 3 (PCR) (NotDetected) Parainfluenza 4 (PCR) (NotDetected) RSV (PCR) (NotDetected) Entero/Rhino (PCR) (NotDetected) Blood Type Antibody Screen 11/26/23 11/26/23 11/26/23 Range/Units 11:15 11:54 17:44 WBC (4.8-10.8) K/ul RBC (4.20-5.40) M/uL Hgb (12.0-16.0) g/dl POC Hgb (12.0-16.0) g/dl Hct (37.0-47.0) % POC Hct (37-47) % MCV (80.0-100.0) fL MCH (25.0-34.0) pg MCHC (32.0-36.0) g/dL RDW Std Deviation (36.4-46.3) fL RDW Coeff of Adolfo (11.5-14.5) % Plt Count (130-400) K/uL MPV (9.4-12.4) fL Immature Gran % (Auto) % Neut % (Auto) % Lymph % (Auto) % [place] % (Auto) % Eos % (Auto) % Baso % (Auto) % Neut # (Auto) (1.40-6.50) K/uL Lymph # (Auto) (1.20-3.40) K/uL [place] # (Auto) (0.11-0.59) K/uL Eos # (Auto) (0.00-0.50) K/uL Baso # (Auto) (0.00-0.20) K/uL Immature Gran # (Auto) (0.01-0.20) K/uL Toxic Vacuolation ESR (0-30) mm/hr PT (9.0-12.0) Seconds INR (0.9-1.1) POC pH (7.35-7.45) POC pCO2 (35-46) mmHg POC pO2 (80-95) mmHg POC HCO3 (19-24) adam/L POC Total CO2 (24-31) mmol/L POC Base Excess (-9-1.8) adam/L POC ABG O2 Sat (90-95) % VBG pH (7.36-7.41) VBG pCO2 (38-50) mmHg VBG pO2 mmHg VBG HCO3 mmol/L VBG O2 Saturation % VBG Base Excess mEq/L POC Sodium (135-144) mmol/L Sodium 135 L (136-145) mmol/L POC Potassium (3.3-5.0) mmol/L Potassium 4.1 Chloride 100 (98-107) mmol/L Carbon Dioxide 27 (21-32) mmol/L Anion Gap 8 (3-11) BUN 41 H (6-23) mg/dl Creatinine 2.49 H (0.6-1.2) mg/dl Est Cr Clr Drug Dosing 29.4 ml/min Est GFR ( Amer) 22.2 ml/min Est GFR (Non-Af Amer) 19.2 ml/min BUN/Creatinine Ratio 16.5 (10-20) Glucose 164 H (70-99(Fasting)) mg/dl POC Glucose 157 H 177 H (70-99) mg/dl POC Glucose (other) (70-99) mg/dl Estimat Average Glucose mg/dl Hemoglobin A1c (4.5-5.6) % Lactate 1.3 (0.4-2.0) mmol/L Calcium 8.3 L (8.6-10.3) mg/dl Ionized Calcium (1.12-1.32) mmol/L Phosphorus (2.5-4.9) mg/dl Magnesium (1.7-2.4) mg/dl Total Bilirubin (0.2-1.0) mg/dl AST ALT (7-52) U/L Alkaline Phosphatase (34-104) U/L Troponin I High Sens (0-14) pg/ml C-Reactive Protein (0-0.5) mg/dl Total Protein (6.0-8.3) gm/dl Albumin (3.4-5.0) gm/dl Globulin (2.5-4.0) gm/dl Albumin/Globulin Ratio (0.9-2) Lipase (11-82) U/L TSH (0.300-4.500) uIu/ml Free T4 (0.61-1.60) ng/dl Random Cortisol mcg/dl Urine Color Urine Appearance (Clear) Urine pH (4.5-7.5) Ur Specific [place] (1.000-1.030) Urine Protein (Negative) Urine Glucose (UA) (Negative) Urine Ketones (Negative) Urine Blood (Negative) Urine Nitrite (Negative) Urine Bilirubin (Negative) Urine Urobilinogen (Negative) Ur Leukocyte Esterase (Negative) Urine WBC (Auto) (0-5) /hpf Urine RBC (Auto) (0-4) /hpf U Hyaline Cast (Auto) (0-5) /lpf U Epithel Cells (Auto) (0-5) /lpf Urine Bacteria (Auto) (Negative) Urine Yeast Ur Random Creatinine mg/dl U Random Total Protein (0-11.9) mg/dl Protein/Creatinin Ratio (0-0.2) Urine Sodium mmol/L Urine Potassium mmol/L Urine Chloride mmol/L Nasal Screen MRSA (PCR) (Negative) Adenovirus (PCR) (NotDetected) B. pertussis DNA (PCR) (NotDetected) B.parapertussis DNA PCR (NotDetected) C. pneumoniae DNA (PCR) (NotDetected) Coronavirus OC43 (PCR) (NotDetected) Coronavirus HKU1 (PCR) (NotDetected) Coronavirus 229E (PCR) (NotDetected) SARS-CoV-2 (PCR) (NotDetected) Coronavirus NL63 (PCR) (NotDetected) Human Metapneumovir PCR (NotDetected) Influenza Type A (PCR) (NotDetected) Influenza Type B (PCR) (NotDetected) M. pneumoniae (PCR) (NotDetected) Parainfluenza 1 (PCR) (NotDetected) Parainfluenza 2 (PCR) (NotDetected) Parainfluenza 3 (PCR) (NotDetected) Parainfluenza 4 (PCR) (NotDetected) RSV (PCR) (NotDetected) Entero/Rhino (PCR) (NotDetected) Blood Type Antibody Screen 11/26/23 11/27/23 11/27/23 Range/Units 23:47 03:58 07:26 WBC 12.28 H (4.8-10.8) K/ul RBC 3.51 L (4.20-5.40) M/uL Hgb 9.6 L (12.0-16.0) g/dl POC Hgb (12.0-16.0) g/dl Hct 30.7 L (37.0-47.0) % POC Hct (37-47) % MCV 87.5 (80.0-100.0) fL MCH 27.4 (25.0-34.0) pg MCHC 31.3 L (32.0-36.0) g/dL RDW Std Deviation 51.0 H (36.4-46.3) fL RDW Coeff of Adolfo 15.9 H (11.5-14.5) % Plt Count 285 (130-400) K/uL MPV 10.5 (9.4-12.4) fL Immature Gran % (Auto) 0.4 % Neut % (Auto) 80.4 % Lymph % (Auto) 7.8 % [place] % (Auto) 3.3 % Eos % (Auto) 7.9 % Baso % (Auto) 0.2 % Neut # (Auto) 9.87 H (1.40-6.50) K/uL Lymph # (Auto) 0.96 L (1.20-3.40) K/uL [place] # (Auto) 0.41 (0.11-0.59) K/uL Eos # (Auto) 0.97 H (0.00-0.50) K/uL Baso # (Auto) 0.02 (0.00-0.20) K/uL Immature Gran # (Auto) 0.05 (0.01-0.20) K/uL Toxic Vacuolation ESR (0-30) mm/hr PT (9.0-12.0) Seconds INR (0.9-1.1) POC pH (7.35-7.45) POC pCO2 (35-46) mmHg POC pO2 (80-95) mmHg POC HCO3 (19-24) adam/L POC Total CO2 (24-31) mmol/L POC Base Excess (-9-1.8) adam/L POC ABG O2 Sat (90-95) % VBG pH (7.36-7.41) VBG pCO2 (38-50) mmHg VBG pO2 mmHg VBG HCO3 mmol/L VBG O2 Saturation % VBG Base Excess mEq/L POC Sodium (135-144) mmol/L Sodium 136 (136-145) mmol/L POC Potassium (3.3-5.0) mmol/L Potassium 3.8 Chloride 102 (98-107) mmol/L Carbon Dioxide 28 (21-32) mmol/L Anion Gap 6 (3-11) BUN 40 H (6-23) mg/dl Creatinine 2.05 H D (0.6-1.2) mg/dl Est Cr Clr Drug Dosing 35.7 ml/min Est GFR ( Amer) 28.1 ml/min Est GFR (Non-Af Amer) 24.3 ml/min BUN/Creatinine Ratio 19.5 (10-20) Glucose 140 H (70-99(Fasting)) mg/dl POC Glucose 96 (70-99) mg/dl POC Glucose (other) 186 H (70-99) mg/dl Estimat Average Glucose mg/dl Hemoglobin A1c (4.5-5.6) % Lactate (0.4-2.0) mmol/L Calcium 8.5 L (8.6-10.3) mg/dl Ionized Calcium (1.12-1.32) mmol/L Phosphorus 3.6 (2.5-4.9) mg/dl Magnesium 2.0 (1.7-2.4) mg/dl Total Bilirubin (0.2-1.0) mg/dl AST ALT (7-52) U/L Alkaline Phosphatase (34-104) U/L Troponin I High Sens (0-14) pg/ml C-Reactive Protein (0-0.5) mg/dl Total Protein (6.0-8.3) gm/dl Albumin (3.4-5.0) gm/dl Globulin (2.5-4.0) gm/dl Albumin/Globulin Ratio (0.9-2) Lipase (11-82) U/L TSH (0.300-4.500) uIu/ml Free T4 (0.61-1.60) ng/dl Random Cortisol mcg/dl Urine Color Urine Appearance (Clear) Urine pH (4.5-7.5) Ur Specific [place] (1.000-1.030) Urine Protein (Negative) Urine Glucose (UA) (Negative) Urine Ketones (Negative) Urine Blood (Negative) Urine Nitrite (Negative) Urine Bilirubin (Negative) Urine Urobilinogen (Negative) Ur Leukocyte Esterase (Negative) Urine WBC (Auto) (0-5) /hpf Urine RBC (Auto) (0-4) /hpf U Hyaline Cast (Auto) (0-5) /lpf U Epithel Cells (Auto) (0-5) /lpf Urine Bacteria (Auto) (Negative) Urine Yeast Ur Random Creatinine mg/dl U Random Total Protein (0-11.9) mg/dl Protein/Creatinin Ratio (0-0.2) Urine Sodium mmol/L Urine Potassium mmol/L Urine Chloride mmol/L Nasal Screen MRSA (PCR) (Negative) Adenovirus (PCR) (NotDetected) B. pertussis DNA (PCR) (NotDetected) B.parapertussis DNA PCR (NotDetected) C. pneumoniae DNA (PCR) (NotDetected) Coronavirus OC43 (PCR) (NotDetected) Coronavirus HKU1 (PCR) (NotDetected) Coronavirus 229E (PCR) (NotDetected) SARS-CoV-2 (PCR) (NotDetected) Coronavirus NL63 (PCR) (NotDetected) Human Metapneumovir PCR (NotDetected) Influenza Type A (PCR) (NotDetected) Influenza Type B (PCR) (NotDetected) M. pneumoniae (PCR) (NotDetected) Parainfluenza 1 (PCR) (NotDetected) Parainfluenza 2 (PCR) (NotDetected) Parainfluenza 3 (PCR) (NotDetected) Parainfluenza 4 (PCR) (NotDetected) RSV (PCR) (NotDetected) Entero/Rhino (PCR) (NotDetected) Blood Type Antibody Screen
--- NOTE | 2023-11-27 10:30 | Critical Care Progress Note ---
Date of Service November 27, 2023 Assessment & Plan (1) Acute CHF: (2) Transient hypotension: (3) Sepsis secondary to UTI: (4) Septic shock: (5) Polypharmacy: Plan 68-year-old female with history of morbid obesity, ELISSA on CPAP, chronic hypoxic respiratory failure and CKD stage III who presented to the ICU after having a transient episode of postoperative hypotension due to placement of a J stent for ureteral obstruction. Blood pressure is improving off vasopressors. Will continue monitoring closely. Monitor urine output. Hold antihypertensives at this time. Blood cultures growing gram-negative rods with the source being a complicated urinary tract infection due to recent ureteral instrumentation. Continue broad-spectrum antibiotics. Continue Eliquis. Continue BiPAP as needed. Continue lower doses chronic sedative hypnotics including Klonopin, gabapentin. Creatinine has significantly improved. No further ICU needs at this time. Patient stable for downgrade. ICU team will sign off. Please call with questions. Admission and Anticipated Discharge Date Admission Date: November 20, 2023 Subjective Patient remains off pressors this morning. Arterial line in place. Confusion improved. Review of Systems Review of Systems: All systems reviewed & are unremarkable except as noted in HPI & below Physical Exam Physical Exam: Constitutional: Patient appears to be of their stated age. Morbidly obese. Eyes: Pupils are equal round and reactive to light. Conjunctivae are normal. Anicteric sclera. Ears nose, mouth and throat: Mallampati class 2. Normal posterior oropharynx. Uvula is midline. BiPAP mask in place Neck: Trachea is midline. Visual inspection is normal. Respiratory: Mild crackles bilaterally. Cardiovascular: Regular rate and rhythm. No murmurs. No edema. Gastrointestinal: Normal bowel sounds, soft, nontender and nondistended. No hepatosplenomegaly noted. Musculoskeletal: No cyanosis. Patient is able to move all extremities. Stren gth is 5 out of 5 in the upper and lower extremities. Skin: No rashes, warm dry and intact. Neurologic: No obvious focal neurological deficits seen. Psychiatric: Alert and oriented x3 with a euthymic affect. Results & Data Results & Data Vital Signs (Past 12 Hours) Vital Signs Temp Pulse Resp BP Pulse Ox O2 Flow Rate FiO2 11/27/23 09:00 102 H 91 11/27/23 08:36 102 H 16 90/54 L 91 11/27/23 08:01 102 H 16 76/40 L 11/27/23 07:30 99 H 15 95/53 L 86 L 11/27/23 07:00 99 H 25 H 104/50 L 91 11/27/23 07:00 96 H 11/27/23 06:00 109/83 11/27/23 06:00 96 H 28 H 91 11/27/23 05:30 87/72 L 11/27/23 05:30 94 H 24 87 L 11/27/23 05:00 92/65 L 11/27/23 05:00 92 H 20 99 11/27/23 04:30 86/63 L 11/27/23 04:30 93 H 20 97 11/27/23 04:02 37.0 C 11/27/23 04:00 94/65 L 11/27/23 04:00 94 H 26 H 99 11/27/23 03:30 87/58 L 11/27/23 03:30 93 H 25 H 95 11/27/23 03:00 89 23 98 11/27/23 03:00 80/58 L 11/27/23 02:50 92 H 24 100 3 11/27/23 02:30 77/52 L 11/27/23 02:30 93 H 14 88 L 11/27/23 02:00 93/53 L 11/27/23 02:00 87 23 97 11/27/23 01:30 90/57 L 11/27/23 01:30 94 H 21 95 11/27/23 01:04 87/53 L 11/27/23 01:04 91 H 23 11/27/23 01:00 93 H 24 99 11/27/23 00:31 96 H 27 H 93 11/27/23 00:31 129/65 11/27/23 00:21 97 H 11/27/23 00:00 83/52 L 11/27/23 00:00 96 H 19 96 11/26/23 23:50 91 H 22 93 35 11/26/23 23:30 96 H 24 96 11/26/23 23:30 85/56 L 11/26/23 23:00 95 H 20 96 11/26/23 23:00 120/67 11/26/23 22:30 117/59 L 11/26/23 22:30 93 H 20 96 Coding Level of Care Code 41924 SUB INP/OBS CARE 10/20MIN Diagnoses Acute CHF I50.9 Transient hypotension I95.9 Sepsis secondary to UTI A41.9; N39.0 Septic shock A41.9; R65.21 Polypharmacy Z79.899
[2023-11-27] MEDS ORDERED: Nursing to Pharmacy Communication SCH (11:00)
[2023-11-27] MEDS: INSULIN ASPART PER UNIT CHARGE SC SCH (11:34)
--- NOTE | 2023-11-27 11:43 | Pharmacy Report ---
Pharmacy Glycemic Short Note 2 - Date of Service November 27, 2023 - Glycemic Short BSG Results (Last 24 hours): 11/26/23 11/26/23 11/26/23 11:15 11:54 17:44 Glucose 164 H POC Glucose 157 H 177 H POC Glucose (other) 11/26/23 11/27/23 11/27/23 23:47 03:58 07:26 Glucose 140 H POC Glucose 96 POC Glucose (other) 186 H 11/27/23 11:22 Glucose POC Glucose 91 POC Glucose (other) OUTPATIENT ANTIDIABETIC REGIMEN: * Tresiba 50 units SQ HS * Novolog 8 units SQ breakfast/lunch, 10 units dinner * tirzepatide 5mg SQ weekly HbA1C: 7.5% (11/20/23) ASSESSMENT: 11/27/23: * Blood sugars well controlled - reduce basal this AM for BSGs in 90s and NPO. * Diet resumed at Lunch, will put on PRN Lantus dose tonight * Pt improving, downgraded from ICU status 11/26/23: * Patient decompensated and transferred to ICU yesterday, NPO, received 31 units of insulin yesterday, 30 units basal. * Patient remains in ICU today, NPO, will give reduced dose of basal, 25 units SC Daily, will titrate back up as patient improves, diet resumes etc. 11/24/23: * BSGs ranging 110-181 mg/dL yesterday w/ elevated fasting BSG this morning of 199 mg/dL * Received 88 units of insulin (50 units of basal and 38 units of prandial/correctional bolus) * Will increase basal and tighten carb ratio 11/22/23: * Patient received 57 units of insulin yesterday (35 units of basal and 22 units of prandial/correctional bolus) * Prior inpatient glycemic data suggests current regimen could be intensified - anticipate increase in basal and tightening of Novolog parameters today * Basal scale slightly adjusted and carb ratio tightened with lunch 11/21/23: * Pt is a 68 year old female known to the glycemic pharmacy service admitted with ambulatory dysfunction. History of DM2. Pharmacy consulted to assist with inpatient glycemic management. * BSGs 77-238-125xx/dL since admission. Received 15 units of Lantus last night and no bolus insulin. * Ordered a diet, other stressors stable. * Lantus 15 units again this AM (fasting BSG within goal range and decreased PO yesterday). Will plan for an HS Lantus scale tonight depending on BSG. Novolog moderate stress scale for now. PLAN FOR INPATIENT GLYCEMIC CONTROL: * Basal insulin * Lantus 10 units SQ this AM, 10 units HS for BSG > 180mg/dl * Further dosing 3/4 AM * Bolus insulin * NovoLog per scale ACHS or Q6hrs while NPO * Goal Range: Low 110 mg/dL - High 140 mg/dL * Correction Factor: 20 mg/dL/unit * Nutritional / Prandial insulin per carb ratio of 1 unit per 5 grams CHO consumed
[2023-11-27] MEDS: cefTRIAXone SODIUM 2,000 MG in DEXTROSE 5 % MINI-B 50 ML IV SCH (11:58)
[2023-11-27] MEDS: GABAPENTIN 300 MG CAP PO SCH (16:00)
--- NOTE | 2023-11-27 16:43 | Nephrology Progress Note ---
Date of Service November 27, 2023 Assessment & Plan (1) Acute on chronic kidney failure: Plan: improving Stage 1 nonoliguric ELSIE from ischemic ATN in the setting of septic shock, still with relative hypotension but no longer pressor dependent baseline creatinine about 1.6; up to 2.4-2.5 in the wake of stenting and septic shock, s/p more than adequate crystalloid resuscitation proteinuria and hematuria not meaningful in current state after instrumentation > Now on ceftriaxone rather than vanco and zosyn chemistries and volume status acceptable -BP maintained currently with Midodrine which she appears to be tolerating >continue close monitoring of hemodynamics and urine output Daily basic metabolic panel Admission and Anticipated Discharge Date Admission Date: November 20, 2023 Subjective Downgraded from ICU level of care and less confused today. Off of pressors but blood pressures are still soft at times. Denies shortness of breath provided she stays on 3 to 4 L of oxygen. No uncontrolled pain currently Review of Systems 2 Review of Systems: All systems reviewed & are unremarkable except as noted in Subjective Physical Exam 2 Constitutional: well developed, well nourished, + ill appearing, + morbidly obese and cooperative Eyes: EOM intact bilaterally ENMT: Ears: no external ear abnormality Nose: no external nose abnormality Mouth: + dry oral mucous membranes Neck: no nuchal rigidity Respiratory: normal respiratory effort Auscultation: + diminished lung sounds Cardiovascular: Rate/Rhythm: regular rate and regular rhythm Extremities: n o edema Gastrointestinal (Abdomen): Inspection/Auscultation: normal bowel sounds P ercussion/Palpation: abdomen soft; abdomen nontender Musculoskeletal: Extremities: strength 5/5 throughout Skin: no rashes, warm and dry Neurologic: Moves all extremities, fluent speech, oriented x 3 Results & Data Vital Signs (Past 12 Hours) Vital Signs Temp Pulse Resp BP Pulse Ox O2 Del Method O2 Flow Rate 11/27/23 12:23 94 H 92/56 L 96 11/27/23 11:47 37.1 C 11/27/23 11:00 96 H 91/45 L 97 11/27/23 10:24 96 H 93/48 L 95 11/27/23 10:01 98 H 99/50 L 100 11/27/23 09:00 Nasal Cannula 3 11/27/23 09:00 102 H 91 11/27/23 08:36 102 H 16 90/54 L 91 11/27/23 08:01 102 H 16 76/40 L 11/27/23 08:00 37.7 C H 11/27/23 07:30 99 H 15 95/53 L 86 L 11/27/23 07:00 99 H 25 H 104/50 L 91 11/27/23 07:00 96 H 11/27/23 06:00 109/83 11/27/23 06:00 96 H 28 H 91 11/27/23 05:30 87/72 L 11/27/23 05:30 94 H 24 87 L 11/27/23 05:00 92/65 L 11/27/23 05:00 92 H 20 99 Laboratory Results 11/27/23 03:58 11/27/23 03:58 (1) Acute on chronic kidney failure Acute renal failure type: with other specified pathological lesion
[2023-11-27] MEDS: LANTUS PER UNIT CHARGE SC SCH (20:03)
[2023-11-28 04:37] LABS: Hematocrit (blood only) 29.4 % (37.0-47.0); Mean Corpuscular Hemoglobin 26.9 pg (25.0-34.0); Mean Corpuscular Hgb Conc 30.6 g/dL (32.0-36.0); Mean Corpuscular Volume 87.8 fL (80.0-100.0); Mean Platelet Volume 10.3 fL (9.4-12.4); Platelet Count 253 K/uL (130-400); RDW Coefficient of Variation 15.7 % (11.5-14.5); RDW Standard Deviation 50.4 fL (36.4-46.3); Red Blood Count 3.35 M/uL (4.20-5.40); White Blood Count 7.25 K/ul (4.8-10.8)
[2023-11-28 04:52] LABS: Calcium 8.5 mg/dl (8.6-10.3); Creatinine Clr Calc Pharmacy 44.4 ml/min; Est GFR (African American) 36.9 ml/min; Est GFR (Non-African American) 31.8 ml/min; Magnesium 1.8 mg/dl (1.7-2.4); Phosphorus 3.1 mg/dl (2.5-4.9); Potassium 3.6 mmol/L (3.5-5.1)
--- NOTE | 2023-11-28 14:26 | Nephrology Progress Note ---
Date of Service November 28, 2023 Assessment & Plan Admission and Anticipated Discharge Date Admission Date: November 20, 2023 Subjective Assessment & Plan (1) Acute on chronic kidney failure: Plan: Nonoliguric ELSIE from ischemic ATN in the setting of septic shock. Now Out of ICU and BP seems acceptable on Midodrine. baseline creatinine about 1.6--peak up to 2.5 in the wake of stenting and septic shock. Got lot of IV fluids for Septic shock. proteinuria and hematuria not meaningful in current state after instrumentation BP maintained currently with Midodrine which she appears to be tolerating continue close monitoring of hemodynamics and urine output ( Has badalla) Daily basic metabolic panel Creat now down to baseline of 1.6. No need of Iv fluids. decision about abdalla as per urology Subjective Downgraded from ICU to regular floor now. BP better. Off of pressors. making urine. Labs better. Denies shortness of breath provided she stays on 3 to 4 L of oxygen. No uncontrolled pain currently Review of Systems Review of Systems: All systems reviewed & are unremarkable except as noted in Subjective Physical Exam Constitutional: well developed, well nourished, + ill appearing, + morbidly obese and cooperative Eyes: EOM intact bilaterally ENMT: Ears: no external ear abnormality Nose: no external nose abnormality Mouth: + dry oral mucous membranes Neck: no nuchal rigidity Respiratory: normal respiratory effort Auscultation: + diminished lung sounds Cardiovascular: Rate/Rhythm: regular rate and regular rhythm Extremities: no edema Gastrointestinal (Abdomen): Inspection/Auscultation: normal bowel sounds Percussion/Palpation: abdomen soft; abdomen nontender Musculoskeletal: Extremities: strength 5/5 throughout Skin: no rashes, warm and dry Neurologic: Moves all extremities, fluent speech, oriented x 3 Results & Data Vital Signs (Past 12 Hours) Vital Signs Temp Pulse Pulse Resp BP BP Pulse Ox 11/28/23 11:00 36.6 C 87 22 115/72 96 11/28/23 08:00 36.7 C 74 22 101/59 L 97 11/28/23 04:00 92 H 30 H 94 11/28/23 03:28 36.9 C 89 25 H 92/59 L 91 11/28/23 03:26 92/59 L 11/28/23 03:26 90 23 92 11/28/23 03:00 90 23 92 O2 Del Method O2 Flow Rate 11/28/23 11:00 Nasal Cannula 4 11/28/23 08:00 Nasal Cannula 4 11/28/23 04:00 11/28/23 03:28 Nasal Cannula 4 11/28/23 03:26 11/28/23 03:26 11/28/23 03:00
--- NOTE | 2023-11-28 15:21 | Hospitalist Progress Note ---
Date of Service November 28, 2023 Assessment & Plan (1) Ambulatory dysfunction: (2) Weakness: (3) Type 2 diabetes, uncontrolled, with neuropathy: (4) Chronic diastolic heart failure: (5) Chronic respiratory failure: (6) CKD (chronic kidney disease), stage III: (7) ELISSA on CPAP: (8) HTN (hypertension): (9) Hypothyroidism: (10) Depression with anxiety: (11) History of pulmonary embolism: (12) Constipation: Plan This is a 68 y/o female with a history of chronic respiratory failure due to probable interstitial lung disease, on chronic O2 at 4 L, ELISSA on CPAP, chronic diastolic heart failure, PVD, HTN, hyperlipidemia, insulin-requiring DM, CKD with baseline creatinine ~1.6, prior DVT/PE, s/p IVC filter placement and on Eliquis, hx HIT, hypothyroidism, fibromyalgia, RLS and depression who presents to the ED today after a fall at home. Work-up in the ED was negative for acute injury, but pt reported severe pain in her knees when she attempted an ambulatory trial in the ED. She feels like she unsafe to return home on her own so she was referred for admission and possible rehab placement. Of note, it appears that she was originally supposed go to [facility] for rehab after her admission in late Sep (d/c on 10/28) but she declined this option as she had no one to take care of her cats. She is willing to consider possible rehab placement 11/24. Course complicated by abdominal/flank pain overnight, hypotension, and encephalopathy. CT abd pelvis with right hydronephrosis with UPJ obstruction. Urology consulted and stent placed with return of purulent urine. Suspect likely source of sepsis Patient hypotensive and not fluid responsive, transferred to ICU #Acute toxic metabolic encephalopathy 10/28 infection *improved manage as follows delirium precautions Diet in place Resume home fibromyalgia regimen #Septic shock, likely secondary to acute on chronic UPJ obstruction #Right hydronephrosis s/p stent placement -CT scan with the same chronic findings as prior exams, however given clinical deterioration consulted urology -s/p stent placement 11/24 -notable hypotensive s/p procedure -Discontinue Vanc Zosyn for CTX -Follow cultures: serratia in urine obtained from stent placement -Other infectious work up: knee less suspicious for infectious etiology at this time, likely above urologic source, ortho following -ICU consulted, transferred to ICU on 11/24 -Pressor discontinued wad impregnator, 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 at this time -Following infectious work up, cultures with serratia sensitive to CTX will continue at this time -Can discharge with course of cipro v cedfidinir Midodrine 5mg TID continue Await recommendations from Urology for follow up post stent #ELSIE on Chronic, stable. Baseline creatinine around 1.6 *improving Avoid nephrotoxic agents iso sepsis Cr up to 2.54 s/p stenting procure, prerenal 2/2 hypotension Consult nephrology 2/2 ELSIE and volume concerns: CTM to trend BMP IV hydration at this time, strict I/Os Hold lasix at this time #Acute on chronic respiratory failure, multifactorial *back to baseline, #Chronic heart failure with preserved ejection fraction On 4 L O2 chronically Chronic, stable Patient now s/p stent placement, after procedure requiring CPAP Needing to push fluid, however, concern for volume overload, will need to likely diurese once sepsis resolves Wean o2 as able #Ambulatory dysfunction #Severe left knee osteoarthritis Ongoing bilateral knee pain, h/o R TKA by Dr. Carrillo years ago and following with [facility] ortho for L knee OA with plans for possible future L TKA but process complicated by BMI and other comorbidities. Patient has been losing weight, due to re-evaluate possibility of TKA but interested in second opinion. Routine consult placed for [facility] ortho. - Fall precautions - Pain control prn -Accepted to rehab, bed not available until early next week -Ortho following: will need OP follow up to discuss surgical intervention #DMTII Chronic, pt reports sugars have been stable for her since being discharged SSI #Hypothyroidism Chronic, stable; TSH low, decrease levothyroxine from 250->200meq Continue levothyroxine #depression mood stable continue meds #Constipation bowel regimen #Prior PE IVC filter, continue eliquis Code Status: Full code DVT Prophylaxis: continue Eliquis, has IVC filter Disposition managing new sepsis as above, transfer to PCU Admission and Anticipated Discharge Date Admission Date: November 20, 2023 Subjective Patient evaluated in beside chair Reports being in pain, however, endorses that pain is chronic fobromyalgia pain Agreeable to central line removal Physical Exam Constitutional: WD/WN, vitals as above tearful Respiratory: normal respiratory effort, lungs clear to auscultation baseline O2 Cardiovascular: RRR, no murmur, no edema Results & Data Results & Data Vital Signs (Past 12 Hours) Vital Signs Temp Pulse Pulse Resp BP BP Pulse Ox 11/28/23 11:00 36.6 C 87 22 115/72 96 11/28/23 08:00 36.7 C 74 22 101/59 L 97 11/28/23 04:00 92 H 30 H 94 11/28/23 03:28 36.9 C 89 25 H 92/59 L 91 11/28/23 03:26 92/59 L 11/28/23 03:26 90 23 92 O2 Del Method O2 Flow Rate 11/28/23 11:00 Nasal Cannula 4 11/28/23 08:00 Nasal Cannula 4 11/28/23 04:00 11/28/23 03:28 Nasal Cannula 4 11/28/23 03:26 11/28/23 03:26 Laboratory Results Short CBC 11/28/23 Range/Units 04:22 WBC 7.25 (4.8-10.8) K/ul Hgb 9.0 L (12.0-16.0) g/dl Hct 29.4 L (37.0-47.0) % Plt Count 253 (130-400) K/uL BMP 11/28/23 04:22 Sodium 138 Potassium 3.6 Chloride 103 Carbon Dioxide 30 BUN 36 H Creatinine 1.64 H D Glucose 99 Calcium 8.5 L Medications Administered Home Medications Medication Instructions Recorded Confirmed Last Taken aspirin 81 mg tablet,delayed 81 mg PO DAILY 09/20/23 11/20/23 11/19/23 release atorvastatin 20 mg tablet 20 mg PO DAILY 09/20/23 11/20/23 11/19/23 baclofen 10 mg tablet 10 mg PO BID PRN Muscle Spasm 09/20/23 11/20/23 Unknown clonazepam 0.5 mg tablet 0.5 mg PO BID 09/20/23 11/20/23 11/19/23 clopidogrel 75 mg tablet 75 mg PO DAILY 09/20/23 11/20/23 11/19/23 duloxetine 60 mg capsule,delayed See Rx Instructions .Route .COMPLEX 09/20/23 11/20/23 11/19/23 release furosemide 40 mg tablet 60 mg PO BID 09/20/23 11/20/23 11/19/23 gabapentin 300 mg capsule 600 mg PO TID 09/20/23 11/20/2311/19/24 insulin aspart U-100 100 unit/mL 8 unit subcut UD 09/20/23 11/20/23 11/19/23 (3 mL) subcutaneous pen (Novolog FlexPen U-100 Insulin aspart) insulin degludec 100 unit/mL (3 50 unit subcut HS 09/20/23 11/20/23 11/19/23 mL) subcutaneous pen (Tresiba FlexTouch U-100 insulin) levothyroxine 200 mcg tablet See Rx Instructions .Route .COMPLEX 09/20/23 11/20/23 11/19/23 levothyroxine 50 mcg tablet See Rx Instructions .Route .COMPLEX 09/20/23 11/20/23 11/19/23 magnesium oxide 400 mg (241.3 mg 400 mg PO BID 09/20/23 11/20/23 11/19/23 magnesium) tablet omeprazole 20 mg capsule,delayed 20 mg PO DAILY 09/20/23 11/20/23 11/19/23 release oxycodone 5 mg tablet 5 mg PO Q6H PRN Pain 09/20/23 11/20/23 Unknown potassium chloride 20 mEq 20 meq PO BID 09/20/23 11/20/23 11/19/23 tablet,extended release(part/cryst) ropinirole 2 mg tablet 2 mg PO HS 09/20/23 11/20/23 11/19/23 sennosides 8.6 mg-docusate sodium 1 tab PO BID 09/20/23 11/20/23 11/19/23 50 mg tablet (Senna-Time S) tirzepatide 5 mg/0.5 mL 5 mg subcut WK 09/20/23 11/20/23 11/16/23 subcutaneous pen injector (Kevan) tramadol 50 mg tablet 50 mg PO TID PRN Pain 09/20/23 11/20/23 Unknown trazodone 100 mg tablet 100 mg PO HS 09/20/23 11/20/23 11/19/23 Vit D3 1000iu 200+50 Softge 1 tab PO QAM 10/24/23 11/20/23 11/19/23 apixaban 2.5 mg tablet (Eliquis) 2.5 mg PO BID 10/24/23 11/20/23 11/19/23 dicyclomine 20 mg tablet 20 mg PO QID PRN abdominal cramping 10/24/23 11/20/23 Unknown duloxetine 30 mg capsule,delayed See Rx Instructions .Route .COMPLEX 10/24/2311/19/23 release triamcinolone acetonide 0.5 % 1 applic topical BID PRN chest rash 10/24/23 11/20/23 Unknown topical cream Active Medications Generic Name Dose Route Start Last Admin Trade Name Jose PRN Reason Stop Dose Admin Acetaminophen 650 mg 11/21/23 00:54 11/27/23 20:31 Acetaminophen 325 Mg Tab PO 12/21/23 00:53 650 mg QID PRN Administration pain/fever Apixaban 2.5 mg 11/20/23 21:00 11/28/23 09:09 Apixaban 2.5 Mg Tab PO 12/20/23 20:59 2.5 mg BID ROBERT Administration Aspirin 81 mg 11/21/23 09:00 11/28/23 09:09 Aspirin 81 Mg Ectab PO 12/21/23 08:59 81 mg DAILY ROBERT Administration Atorvastatin Calcium 20 mg 11/21/23 09:00 11/28/23 09:09 Atorvastatin 20 Mg Tab PO 12/21/23 08:59 20 mg DAILY ROBERT Administration Baclofen 10 mg 11/20/23 16:25 11/28/23 07:41 Baclofen 10 Mg Tab PO 12/20/23 16:24 10 mg BID PRN Administration Muscle Spasm Clonazepam 0.25 mg 11/26/23 09:15 11/28/23 09:09 Clonazepam 0.25 Mg Tab PO 12/26/23 09:14 0.25 mg BID ROBERT Administration Clopidogrel Bisulfate 75 mg 11/21/23 09:00 11/28/23 07:41 Clopidogrel Bisulfate 75 Mg Tab PO 12/21/23 08:59 75 mg DAILY ROBERT Administration Diclofenac Sodium 2 gm 11/23/23 13:45 11/28/23 12:31 Diclofenac Sod 1% Gel 100 Gm Tube EXT 12/23/23 13:44 2 gm Q6 ROBERT Administration Protocol Dicyclomine HCl 20 mg 11/20/23 16:25 11/26/23 20:00 Dicyclomine Hcl 20 Mg Tab PO 12/20/23 16:24 20 mg QID PRN Administration abdominal cramping Duloxetine HCl 60 mg 11/20/23 17:00 11/28/23 09:10 Duloxetine Hcl 60 Mg Cap PO 12/20/23 16:59 60 mg DAILY ROBERT Administration Duloxetine HCl 30 mg 11/20/23 17:00 11/28/23 07:41 Duloxetine Hcl 30 Mg Cap PO 12/20/23 16:59 30 mg DAILY ROBERT Administration Hydromorphone HCl 0.5 mg 11/26/23 16:52 11/28/23 08:59 Hydromorphone Inj 0.5 Mg/0.5 Ml Syr IV 12/10/23 16:51 0.5 mg Q6H PRN Administration Severe Pain (Scale 7, 8, 9,10) Ceftriaxone Sodium 2,000 mg/ 50 mls @ 100 mls/hr 11/27/23 11:30 11/28/23 14:05 Dextrose IV 12/07/23 11:29 Infused Q24H ROBERT Infusion Protocol Insulin Aspart 0 units 11/27/23 11:30 11/28/23 12:32 Insulin Aspart Per Unit Charge SC 12/25/23 00:00 11 units ACHS ROBERT Administration Insulin Glargine 0 units 11/27/23 21:00 11/27/23 20:03 Lantus Per Unit Charge SC 12/27/23 20:59 Not Given HS ROBERT Protocol Levothyroxine Sodium 200 mcg 11/20/23 17:00 11/28/23 07:37 Levothyroxine Sodium 200 Mcg Tablet PO 12/20/23 16:59 200 mcg DAILYBB ROBERT Administration Magnesium Hydroxide 30 ml 11/22/23 17:59 11/23/23 05:25 Magnesium Hydroxide Susp 30 Ml Udc PO 12/22/23 17:58 30 ml Q6H PRN Administration Constipation Magnesium Oxide 400 mg 11/20/23 21:00 11/28/23 09:08 Magnesium Oxide 400 Mg Tab PO 12/20/23 20:59 400 mg BID ROBERT Administration Midodrine 5 mg 11/26/23 08:00 11/28/23 12:32 Midodrine Hcl 2.5 Mg Tab PO 12/26/23 07:59 5 mg TID@0800,1200,1700 ROBERT Administration Ondansetron HCl 4 mg 11/24/23 20:39 11/28/23 10:50 Ondansetron 4 Mg Od Tab PO 12/24/23 20:38 4 mg Q8H PRN Administration Nausea And Vomiting Pantoprazole Sodium 40 mg 11/21/23 09:00 11/28/23 09:09 Pantoprazole 40 Mg Tab PO 12/21/23 08:59 40 mg DAILY ROBERT Administration Protocol Ropinirole HCl 2 mg 11/20/23 21:00 11/27/23 20:29 Ropinirole Hcl 2 Mg Tablet PO 12/20/23 20:59 2 mg HS ROBERT Administration Senna/Docusate Sodium 1 tab 11/20/23 21:00 11/28/23 07:41 Docusate Sodium/Senna 50/8.6mg Tab PO 12/20/23 20:59 1 tab BID ROBERT Administration Sodium Chloride 2 sprays 11/21/23 00:13 11/21/23 00:58 Sodium Chloride 0.65% Na Soln 45 Ml ([place]) NA 12/21/23 00:12 2 sprays TID PRN Administration Nasal Congestion (5) Chronic respiratory failure Respiratory failure complication: hypoxia Qualified Code(s): J96.11 - Chronic respiratory failure with hypoxia (6) CKD (chronic kidney disease), stage III Chronic kidney disease stage 3 subtype: unspecified whether 3a or 3b Qualified Code(s): N18.30 - Chronic kidney disease, stage 3 unspecified (8) HTN (hypertension) Hypertension type: primary hypertension Qualified Code(s): I10 - Essential (primary) hypertension (9) Hypothyroidism Hypothyroidism type: unspecified Qualified Code(s): E03.9 - Hypothyroidism, unspecified
--- NOTE | 2023-11-28 16:47 | Electrocardiogram Report ---
Test Reason : Blood Pressure : / mmHG Vent. Rate : 095 BPM Atrial Rate : 095 BPM P-R Int : 164 ms QRS Dur : 082 ms QT Int : 346 ms P-R-T Axes : 061 017 064 degrees QTc Int : 434 ms Normal sinus rhythm Low voltage QRS Borderline ECG When compared with ECG of 25-NOV-2023 05:29, No significant change was found Confirmed by Alvin Dyer [id number]) on 11/28/2023 4:47:09 PM Referred By: REFERRED SELF Confirmed By:Alvin Dyer
[2023-11-28] MEDS: GABAPENTIN 300 MG CAP PO SCH (19:33)
[2023-11-28] MEDS: traZODone HCL 50 MG TAB PO SCH (19:34)
[2023-11-29] MEDS: traMADol HCL 50 MG TABLET PO PRN (00:28)
[2023-11-29] MEDS: LORazepam 0.5 MG TAB PO STA (00:46)
[2023-11-29 06:24] LABS: BUN Creatinine Ratio 21.6 (10-20); Creatinine Clr Calc Pharmacy 59.6 ml/min; Est GFR (African American) 51.2 ml/min; Est GFR (Non-African American) 44.2 ml/min; Magnesium 1.8 mg/dl (1.7-2.4); Phosphorus 3.4 mg/dl (2.5-4.9); Potassium 3.7 mmol/L (3.5-5.1)
[2023-11-29 06:53] LABS: Hematocrit (blood only) 31.4 % (37.0-47.0); Hemoglobin 9.6 g/dl (12.0-16.0); Mean Corpuscular Hemoglobin 26.7 pg (25.0-34.0); Mean Corpuscular Hgb Conc 30.6 g/dL (32.0-36.0); Mean Corpuscular Volume 87.2 fL (80.0-100.0); Mean Platelet Volume 10.3 fL (9.4-12.4); Platelet Count 279 K/uL (130-400); RDW Coefficient of Variation 15.4 % (11.5-14.5); RDW Standard Deviation 49.4 fL (36.4-46.3); White Blood Count 6.54 K/ul (4.8-10.8)
[2023-11-29] MEDS: LANTUS PER UNIT CHARGE SC SCH (09:11)
[2023-11-29 09:18] LABS: Urea Nitrogen, Random Urine 479 mg/dL
--- NOTE | 2023-11-29 12:34 | Nephrology Progress Note ---
Date of Service November 29, 2023 Assessment & Plan Admission and Anticipated Discharge Date Admission Date: November 20, 2023 Subjective Assessment & Plan (1) Acute on chronic kidney failure: Plan: Nonoliguric ELSIE from ischemic ATN in the setting of septic shock. Now Out of ICU and BP seems acceptable on Midodrine. baseline creatinine about 1.6--peak up to 2.5 in the wake of stenting and septic shock. Got lot of IV fluids for Septic shock. proteinuria and hematuria not meaningful in current state after instrumentation BP maintained currently with Midodrine which she appears to be tolerating continue close monitoring of hemodynamics and urine output ( Has abdalla) Daily basic metabolic panel Creat now better than even baseline now at 1.25. She does have some excess fluid leftover from Sepsis Hydration--lasix 40 mg iv x 1. She was on Lasix 60 bid at home. Subjective Downgraded from ICU to regular floor now. BP better. Off of pressors. making urine. Labs better. Denies shortness of breath provided she stays on 3 to 4 L of oxygen. No uncontrolled pain currently Review of Systems Review of Systems: All systems reviewed & are unremarkable except as noted in Subjective Physical Exam Constitutional: well developed, well nourished, + ill appearing, + morbidly obese and cooperative Eyes: EOM intact bilaterally ENMT: Ears: no external ear abnormality Nose: no external nose abnormality Mouth: + dry oral mucous membranes Neck: no nuchal rigidity Respiratory: normal respiratory effort Auscultation: + diminished lung sounds Cardiovascular: Rate/Rhythm: regular rate and regular rhythm Extremities: 1+ edema Gastrointestinal (Abdomen): Inspection/Auscultation: normal bowel sounds Percussion/Palpation: abdomen soft; abdomen nontender Musculoskeletal: Extremities: strength 5/5 throughout Skin: no rashes, warm and dry Neurologic: Moves all extremities, fluent speech, oriented x 3 Results & Data Vital Signs (Past 12 Hours) Vital Signs Temp Pulse Pulse Resp BP Pulse Ox O2 Del Method 11/29/23 11:01 36.5 C 75 18 128/65 96 Nasal Cannula 11/29/23 09:00 Nasal Cannula 11/29/23 09:00 75 11/29/23 06:54 36.5 C 73 18 121/72 95 Nasal Cannula 11/29/23 04:21 104/61 11/29/23 04:06 36.6 C 78 22 194/87 H 97 Nasal Cannula O2 Flow Rate 11/29/23 11:01 4 11/29/23 09:00 4 11/29/23 09:00 11/29/23 06:54 4 11/29/23 04:21 11/29/23 04:06 4
--- NOTE | 2023-11-29 12:59 | Psychiatric Consultation ---
Date of Consultation November 29, 2023 Impression / Recommendations Impression 68 yo female with similar presentation as last year where becomes overwhelmed in the context of ongoing hospitalization and makes suicidal statements that later clarifies aren't acute and certainly denies intent but rather refelct her frustration and hopelessness of medical condition/pain. (1) Major depression, recurrent: Plan Dr. Adorno updated, patient is not viewed as an acute risk of self-harm in the hospital and feel 1-on-1 can be discontinued unless other medical indication. Therefore, she would be psychiatrically stable for discharge to appropriate rehab setting. She remains on Cymbalta 90 mg for neuropathy/depression, I defer dosing to hospitalist and feel addressing pain via neurontin and other means probably more effective way of mitigating her mood symptoms rather than cross taper to Zoloft as significant adjustment component that should improve as medical conditions stabilize. liaison to check on availability of Medicare therapist through [facility] as often a waitlist. CPT Code Overall, I spent a total of 60 minutes with this case, including review of chart, direct evaluation of the patient, counseling the patient, coordination with nursing,coordination of care with hospitalist service, [and documentation.] Psych History Identifying Data per hospitalist: This is a 68 y/o female with a history of chronic respiratory failure due to probable interstitial lung disease, on chronic O2 at 4 L, ELISSA on CPAP, chronic diastolic heart failure, PVD, HTN, hyperlipidemia, insulin- requiring DM, CKD with baseline creatinine ~1.6, prior DVT/PE, s/p IVC filter placement and on Eliquis, hx HIT, hypothyroidism, fibromyalgia, RLS and depression. She presented to the ED on 11/20/23 after a fall at home. Chief Complaint "[]". History of Present Illness The patient is growing increasingly frustrated with her medical decline and feels that her pain in often not acknowledged. She admits making statements yesterday re: overdosing on pills out of frustration. She understands that she probably won't be able to return home immediately and says probably best since brother who is main assistance is recovering from back surgery. RE: med safety they are blister packed and she gets 30 days at a time. She is still taking Cymbalta as prescribed and is unsure if it is helpful for her diabetic neuropathy but finds some relief with gabapentin but "there's still my fibromyalgia." She'd be open to resuming therapy if covered by insurance and copays manageable. Confirmed hx as per liaison: Met with pt. for initial consult. Pt lying in bed. 1:1 sitter in room. Willing to speak with liaison at this time. Tearful throughout conversation. Pt confirms making suicidal statements earlier in the day. States currently having SI but states she would never act on it. States main stressor is pain and is unable to deal with it any longer. Pt also states "I have been tired for a very long time" and "Every time I get something fixed another problem happens" referring to her physical health. Pt rates depression and anxiety 05/05. States she lives for her 2 cats and would never hurt herself because there would be nobody else to care for them. Denies any other protective factors. Denies any specific supports. Denies SIB/HI/halluc/delus. Denies recent SI at home prior to being in the hospital. States she lives alone. Pt states her therapist (Dr. Garcia) is helpful but she hasnt been able to meet for awhile due to money. Willing to try another therapist that is better with her insurance if possible. Denies any recent psychiatric medication changes through her pcp. Denies any substance use. Denies acces to firearms. PHQ-9 score: 13, #9=1. Willing to speak with psychiatrist and try recommendations. Pt aware liaison to see her again if she would need anything. Reviewed hx from previous psych consultation from February [address] Santacruz: Psychiatric history notable for no prior suicide attempts, no family hx of suicide, no access to guns, no prior inpatient psychiatric admissions, hx zoloft trial in the past (worked well) and fluoxetine (didn't work). Allergies Allergy/AdvReac Type Severity Reaction Status Date / Time morphine Allergy Severe Swelling, Verified 11/20/23 10:52 "Violent reaction- almost " dapagliflozin [From Farxiga] Allergy Intermediate Yeast Verified 11/20/23 10:52 infections tetanus toxoid, adsorbed Allergy Intermediate Passed Verified 11/20/23 10:52 out, "got sick" as child bupropion [From Wellbutrin] AdvReac Intermediate Recurrent Verified 11/20/23 10:52 falls as per patient codeine AdvReac Intermediate Hallucinati Verified 11/20/23 10:52 ons empagliflozin AdvReac Intermediate Yeast Verified 11/20/23 10:52 [From Jardiance] infections heparin AdvReac Intermediate HIT, Verified 11/20/23 10:52 "Fluid in lungs" hydrocodone [From Vicodin] AdvReac Intermediate Drowsy Verified 11/20/23 10:52 Home Medications Medication Instructions Recorded Confirmed Type aspirin 81 mg tablet,delayed 81 mg PO DAILY 09/20/23 11/20/23 History release atorvastatin 20 mg tablet 20 mg PO DAILY 09/20/23 11/20/23 History baclofen 10 mg tablet 10 mg PO BID PRN Muscle Spasm 09/20/23 11/20/23 History clonazepam 0.5 mg tablet 0.5 mg PO BID 09/20/23 11/20/23 History clopidogrel 75 mg tablet 75 mg PO DAILY 09/20/23 11/20/23 History duloxetine 60 mg capsule,delayed See Rx Instructions .Route .COMPLEX 09/20/23 11/20/23 History release furosemide 40 mg tablet 60 mg PO BID 09/20/23 11/20/23 History gabapentin 300 mg capsule 600 mg PO TID 09/20/23 11/20/23 History insulin aspart U-100 100 unit/mL 8 unit subcut UD 09/20/23 11/20/23 History (3 mL) subcutaneous pen (Novolog FlexPen U-100 Insulin aspart) insulin degludec 100 unit/mL (3 50 unit subcut HS 09/20/23 11/20/23 History mL) subcutaneous pen (Tresiba FlexTouch U-100 insulin) levothyroxine 200 mcg tablet See Rx Instructions .Route .COMPLEX 09/20/23 11/20/23 History levothyroxine 50 mcg tablet See Rx Instructions .Route .COMPLEX 09/20/23 11/20/23 History magnesium oxide 400 mg (241.3 mg 400 mg PO BID 09/20/23 11/20/23 History magnesium) tablet omeprazole 20 mg capsule,delayed 20 mg PO DAILY 09/20/23 11/20/23 History release oxycodone 5 mg tablet 5 mg PO Q6H PRN Pain 09/20/23 11/20/23 History potassium chloride 20 mEq 20 meq PO BID 09/20/23 11/20/23 History tablet,extended release(part/cryst) ropinirole 2 mg tablet 2 mg PO HS 09/20/23 11/20/23 History sennosides 8.6 mg-docusate sodium 1 tab PO BID 09/20/23 11/20/23 History 50 mg tablet (Senna-Time S) tirzepatide 5 mg/0.5 mL 5 mg subcut WK 09/20/23 11/20/23 History subcutaneous pen injector (Mounjaro) tramadol 50 mg tablet 50 mg PO TID PRN Pain 09/20/23 11/20/23 History trazodone 100 mg tablet 100 mg PO HS 09/20/23 11/20/23 History Vit D3 1000iu 200+50 Softge 1 tab PO QAM 10/24/23 11/20/23 History apixaban 2.5 mg tablet (Eliquis) 2.5 mg PO BID 10/24/23 11/20/23 History dicyclomine 20 mg tablet 20 mg PO QID PRN abdominal cramping 10/24/23 11/20/23 History duloxetine 30 mg capsule,delayed See Rx Instructions .Route .COMPLEX 10/24/23 11/20/23 History release triamcinolone acetonide 0.5 % 1 applic topical BID PRN chest rash 10/24/23 11/20/23 History topical cream Patient History Medical History Septic shock Sepsis secondary to UTI Transient hypotension UTI due to Klebsiella species Hypotension Acute pyelonephritis Hypomagnesemia Mitral valve stenosis Echo 06/2023: Borderline mild mitral stenosis secondary to severe mitral annular calcification Chronic hypoxemic respiratory failure Cataract, bilateral Lumbago with sciatica Lower extremity pain, bilateral Neuropathy feet On home oxygen therapy 3L continuous CHF (congestive heart failure) Follows with Dr. Woodall Subclavian artery stenosis Cerebrovascular duplex study 06/2023: Retrograde flow in the right vertebral artery. 50-69% proximal right subclavian artery stenosis. Antegrade flow in the left vertebral artery. Normal flow in the left subclavian artery. Carotid stenosis, right Cerebrovascular duplex 07/11/23: 80-99% R ICA stenosis. No hemodynamically significant stenosis in the LICA. Diabetes mellitus, type II CKD (chronic kidney disease), stage III Follows with [facility] ELISSA on CPAP CPAP + 3L O2 (O2 is continuous) HTN (hypertension) HLD (hyperlipidemia) Morbid obesity HIT (heparin-induced thrombocytopenia) 2009, [facility] then life flight to [place] > "resolved" Depression with anxiety Hypothyroidism History of pulmonary embolism 2008 s/p zoraida filter GERD (gastroesophageal reflux disease) RLS (restless legs syndrome) History of DVT (deep vein thrombosis) 2008 (during ICU [place] admission/PNA) Presence of IVC filter 2008 Fibromyalgia Surgical History Family history of reaction to anesthesia Brother/niece- PONV Brother- "wakes up violent" History of colostomy reversal History of tooth extraction History of arthroscopy left ankle History of incisional hernia repair Nausea and vomiting after administration of anesthetic agent History of colonoscopy History of cholecystectomy History of total right knee replacement History of tracheostomy 06/2009 (per [facility] records), secondary to acute respiratory failure in setting of PNA, reversed a few months later History of thyroidectomy, total 2010 History of colon resection secondary to R colon perforation, resected treated with colostomy and eventual reversal in 2008, Dr. 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: No Beliefs That Will Affect Care: None marital status: Single Current Living Situation: Alone Current Living Situation Comment: Lives by self in apartment How many Children do You have: 0 Feels Safe at Home: Yes Assistive Devices: Oxygen - Continuous, Walker and Other Physical Exam Psychiatric: Orientation: alert Apperance: appropriately groomed Eye Contact: + fair eye contact Motor Behavior: no abnormal motor movements Speech: normal rate/rhythm/volume of speech Affect: + depressed affect Mood: + depressed mood Thought Process: goal directed thought process Thought Content: reality based without delusions Suicidal Thoughts: denies suicidal thoughts (but hopeless at times, chronic intermittent triggered by hospital) Homicidal Thoughts: denies homicidal thoughts Hallucinations: no auditory hallucinations and no visual hallucinations Cognition: attention grossly intact and language grossly intact Estimated Intelligence: consistent with education level Vital Signs (Past 24 Hours): Last Vital Signs Temp 36.5 C 11/29/23 11:01 Pulse 75 11/29/23 11:01 Resp 18 11/29/23 11:01 BP 128/65 11/29/23 11:01 Pulse Ox 96 11/29/23 11:01 O2 Del Method Nasal Cannula 11/29/23 11:01 O2 Flow Rate 4 11/29/23 11:01 FiO2 35 11/26/23 23:50 Review of Systems All systems reviewed & are unremarkable except as noted in HPI & below Results & Data (PSY) Laboratory Results 11/29/23 11/29/23 11/29/23 Range/Units 11:31 07:26 06:32 WBC 6.54 (4.8-10.8) K/ul RBC 3.60 L (4.20-5.40) M/uL Hgb 9.6 L (12.0-16.0) g/dl Hct 31.4 L (37.0-47.0) % MCV 87.2 (80.0-100.0) fL MCH 26.7 (25.0-34.0) pg MCHC 30.6 L (32.0-36.0) g/dL RDW Std Deviation 49.4 H (36.4-46.3) fL RDW Coeff of Adolfo 15.4 H (11.5-14.5) % Plt Count 279 (130-400) K/uL MPV 10.3 (9.4-12.4) fL Sodium (136-145) mmol/L Potassium (3.5-5.1) mmol/L Chloride (98-107) mmol/L Carbon Dioxide (21-32) mmol/L Anion Gap (3-11) BUN (6-23) mg/dl Creatinine (0.6-1.2) mg/dl Est Cr Clr Drug Dosing ml/min Est GFR ( Amer) ml/min Est GFR (Non-Af Amer) ml/min BUN/Creatinine Ratio (10-20) Glucose (70-99(Fasting)) mg/dl POC Glucose 120 H 119 H (70-99) mg/dl Calcium (8.6-10.3) mg/dl Phosphorus (2.5-4.9) mg/dl Magnesium (1.7-2.4) mg/dl Ur Random Urea Nitrogn mg/dL 11/29/23 11/28/23 11/28/23 Range/Units 05:27 19:59 17:06 WBC (4.8-10.8) K/ul RBC (4.20-5.40) M/uL Hgb (12.0-16.0) g/dl Hct (37.0-47.0) % MCV (80.0-100.0) fL MCH (25.0-34.0) pg MCHC (32.0-36.0) g/dL RDW Std Deviation (36.4-46.3) fL RDW Coeff of Adolfo (11.5-14.5) % Plt Count (130-400) K/uL MPV (9.4-12.4) fL Sodium 139 (136-145) mmol/L Potassium 3.7 (3.5-5.1) mmol/L Chloride 106 (98-107) mmol/L Carbon Dioxide 27 (21-32) mmol/L Anion Gap 6 (3-11) BUN 27 H (6-23) mg/dl Creatinine 1.25 H D (0.6-1.2) mg/dl Est Cr Clr Drug Dosing 59.6 ml/min Est GFR ( Amer) 51.2 ml/min Est GFR (Non-Af Amer) 44.2 ml/min BUN/Creatinine Ratio 21.6 H (10-20) Glucose 102 H (70-99(Fasting)) mg/dl POC Glucose 124 H 110 H (70-99) mg/dl Calcium 9.0 (8.6-10.3) mg/dl Phosphorus 3.4 (2.5-4.9) mg/dl Magnesium 1.8 (1.7-2.4) mg/dl Ur Random Urea Nitrogn mg/dL 11/26/23 Range/Units 08:27 WBC (4.8-10.8) K/ul RBC (4.20-5.40) M/uL Hgb (12.0-16.0) g/dl Hct (37.0-47.0) % MCV (80.0-100.0) fL MCH (25.0-34.0) pg MCHC (32.0-36.0) g/dL RDW Std Deviation (36.4-46.3) fL RDW Coeff of Adolfo (11.5-14.5) % Plt Count (130-400) K/uL MPV (9.4-12.4) fL Sodium (136-145) mmol/L Potassium (3.5-5.1) mmol/L Chloride (98-107) mmol/L Carbon Dioxide (21-32) mmol/L Anion Gap (3-11) BUN (6-23) mg/dl Creatinine (0.6-1.2) mg/dl Est Cr Clr Drug Dosing ml/min Est GFR ( Amer) ml/min Est GFR (Non-Af Amer) ml/min BUN/Creatinine Ratio (10-20) Glucose (70-99(Fasting)) mg/dl POC Glucose (70-99) mg/dl Calcium (8.6-10.3) mg/dl Phosphorus (2.5-4.9) mg/dl Magnesium (1.7-2.4) mg/dl Ur Random Urea Nitrogn 479 mg/dL Medications Administered Acetaminophen (Acetaminophen 325 Mg Tab) 650 mg PO QID PRN PRN Reason: pain/fever Stop: 12/21/23 00:53 Last Admin: 11/28/23 20:38 Dose: 650 mg Documented By: MLVinicius Admin: 11/27/23 20:31 Dose: 650 mg Documented By: Admin: 11/27/23 14:01 Dose: 650 mg Documented By: Admin: 11/27/23 07:28 Dose: 650 mg Documented By: Admin: 11/26/23 20:03 Dose: 650 mg Documented By: Admin: 11/26/23 15:03 Dose: 650 mg Documented By: Admin: 11/26/23 09:19 Dose: 650 mg Documented By: Admin: 11/25/23 08:11 Dose: 650 mg Documented By: Admin: 11/24/23 14:33 Dose: 650 mg Documented By: Admin: 11/23/23 14:38 Dose: 650 mg Documented By: Admin: 11/23/23 05:25 Dose: 650 mg Documented By: Admin: 11/22/23 17:59 Dose: 650 mg Documented By: Admin: 11/22/23 09:20 Dose: 650 mg Documented By: Admin: 11/22/23 01:07 Dose: 650 mg Documented By: Admin: 11/21/23 01:05 Dose: 650 mg Documented By: DINORAH Apixaban (Apixaban 2.5 Mg Tab) 2.5 mg PO BID ROBERT Stop: 12/20/23 20:59 Last Admin: 11/29/23 09:22 Dose: 2.5 mg Documented By: Admin: 11/28/23 19:34 Dose: 2.5 mg Documented By: Admin: 11/28/23 09:09 Dose: 2.5 mg Documented By: GPYamilka Admin: 11/27/23 20:29 Dose: 2.5 mg Documented By: Admin: 11/27/23 09:19 Dose: 2.5 mg Documented By: Admin: 11/26/23 20:01 Dose: 2.5 mg Documented By: Admin: 11/25/23 09:29 Dose: 2.5 mg Documented By: Admin: 11/24/23 22:53 Dose: 2.5 mg Documented By: Admin: 11/24/23 09:05 Dose: 2.5 mg Documented By: Admin: 11/23/23 21:16 Dose: 2.5 mg Documented By: Admin: 11/23/23 08:47 Dose: 2.5 mg Documented By: Admin: 11/22/23 21:29 Dose: 2.5 mg Documented By: Admin: 11/22/23 08:25 Dose: 2.5 mg Documented By: Admin: 11/21/23 21:21 Dose: 2.5 mg Documented By: Admin: 11/21/23 08:22 Dose: 2.5 mg Documented By: Admin: 11/20/23 21:07 Dose: 2.5 mg Documented By: DINORAH Aspirin (Aspirin 81 Mg Ectab) 81 mg PO DAILY ROBERT Stop: 12/21/23 08:59 Last Admin: 11/29/23 09:22 Dose: 81 mg Documented By: Admin: 11/28/23 09:09 Dose: 81 mg Documented By: Admin: 11/25/23 09:29 Dose: 81 mg Documented By: Admin: 11/24/23 09:07 Dose: 81 mg Documented By: Admin: 11/23/23 08:48 Dose: 81 mg Documented By: Admin: 11/22/23 08:23 Dose: 81 mg Documented By: Admin: 11/21/23 08:21 Dose: 81 mg Documented By: CMV Atorvastatin Calcium (Atorvastatin 20 Mg Tab) 20 mg PO DAILY ROBERT Stop: 12/21/23 08:59 Last Admin: 11/29/23 09:22 Dose: 20 mg Documented By: Admin: 11/28/23 09:09 Dose: 20 mg Documented By: Admin: 11/27/23 07:33 Dose: 20 mg Documented By: Admin: 11/26/23 08:11 Dose: 20 mg Documented By: Admin: 11/25/23 09:29 Dose: 20 mg Documented By: Admin: 11/24/23 09:06 Dose: 20 mg Documented By: Admin: 11/23/23 08:49 Dose: 20 mg Documented By: Admin: 11/22/23 08:25 Dose: 20 mg Documented By: Admin: 11/21/23 08:21 Dose: 20 mg Documented By: CMV Baclofen (Baclofen 10 Mg Tab) 10 mg PO BID PRN PRN Reason: Muscle Spasm Stop: 12/20/23 16:24 Last Admin: 11/28/23 20:36 Dose: 10 mg Documented By: Admin: 11/28/23 07:41 Dose: 10 mg Documented By: Admin: 11/20/23 21:10 Dose: 10 mg Documented By: DINORAH Clonazepam (Clonazepam 0.25 Mg Tab) 0.25 mg PO BID ROBERT Stop: 12/26/23 09:14 Last Admin: 11/29/23 09:21 Dose: 0.25 mg Documented By: Admin: 11/28/23 19:37 Dose: 0.25 mg Documented By: Admin: 11/28/23 09:09 Dose: 0.25 mg Documented By: Admin: 11/27/23 20:32 Dose: 0.25 mg Documented By: Admin: 11/27/23 07:28 Dose: 0.25 mg Documented By: Admin: 11/26/23 20:03 Dose: 0.25 mg Documented By: Admin: 11/26/23 10:56 Dose: 0.25 mg Documented By: DIANA Clopidogrel Bisulfate (Clopidogrel Bisulfate 75 Mg Tab) 75 mg PO DAILY [facility] Stop: 12/21/23 08:59 Last Admin: 11/29/23 09:22 Dose: 75 mg Documented By: Admin: 11/28/23 07:41 Dose: 75 mg Documented By: Admin: 11/25/23 09:29 Dose: 75 mg Documented By: Admin: 11/24/23 09:06 Dose: 75 mg Documented By: Admin: 11/23/23 08:48 Dose: 75 mg Documented By: Admin: 11/22/23 08:23 Dose: 75 mg Documented By: Admin: 11/21/23 08:21 Dose: 75 mg Documented By: EASTON Diclofenac Sodium (Diclofenac Sod 1% Gel 100 Gm Tube) 2 gm EXT Q6 [facility]; Protocol Stop: 12/23/23 13:44 Last Admin: 11/29/23 12:29 Dose: 2 gm Documented By: Admin: 11/29/23 06:33 Dose: 2 gm Documented By: Admin: 11/29/23 00:28 Dose: 2 gm Documented By: Admin: 11/28/23 17:43 Dose: Not Given Documented By: Admin: 11/28/23 12:31 Dose: 2 gm Documented By: Admin: 11/28/23 06:27 Dose: 2 gm Documented By: Admin: 11/28/23 00:46 Dose: Not Given Documented By: Admin: 11/27/23 18:06 Dose: 2 gm Documented By: Admin: 11/27/23 11:59 Dose: 2 gm Documented By: Admin: 11/27/23 06:00 Dose: 2 gm Documented By: Admin: 11/27/23 00:01 Dose: 2 gm Documented By: Admin: 11/26/23 17:47 Dose: 2 gm Documented By: Admin: 11/26/23 11:49 Dose: 2 gm Documented By: Admin: 11/26/23 05:30 Dose: 2 gm Documented By: Admin: 11/25/23 23:46 Dose: Not Given Documented By: Admin: 11/25/23 19:41 Dose: 2 gm Documented By: Admin: 11/25/23 11:15 Dose: 2 gm Documented By: Admin: 11/25/23 05:25 Dose: 2 gm Documented By: Admin: 11/24/23 22:56 Dose: 2 gm Documented By: Admin: 11/24/23 17:00 Dose: 2 gm Documented By: Admin: 11/24/23 12:19 Dose: 2 gm Documented By: Admin: 11/24/23 05:23 Dose: 2 gm Documented By: Admin: 11/24/23 00:03 Dose: 2 gm Documented By: Admin: 11/23/23 18:06 Dose: 2 gm Documented By: Admin: 11/23/23 15:08 Dose: 2 gm Documented By: GASTON Dicyclomine HCl (Dicyclomine Hcl 20 Mg Tab) 20 mg PO QID PRN PRN Reason: abdominal cramping Stop: 12/20/23 16:24 Last Admin: 11/26/23 20:00 Dose: 20 mg Documented By: Admin: 11/21/23 11:59 Dose: 20 mg Documented By: CMV Duloxetine HCl (Duloxetine Hcl 60 Mg Cap) 60 mg PO DAILY ROBERT Stop: 12/20/23 16:59 Last Admin: 11/29/23 09:21 Dose: 60 mg Documented By: Admin: 11/28/23 09:10 Dose: 60 mg Documented By: Admin: 11/27/23 07:33 Dose: 60 mg Documented By: Admin: 11/26/23 09:19 Dose: 60 mg Documented By: Admin: 11/25/23 09:28 Dose: 60 mg Documented By: Admin: 11/24/23 09:06 Dose: 60 mg Documented By: Admin: 11/23/23 08:48 Dose: 60 mg Documented By: Admin: 11/22/23 08:24 Dose: 60 mg Documented By: Admin: 11/21/23 08:20 Dose: 60 mg Documented By: Admin: 11/20/23 18:04 Dose: 60 mg Documented By: JANET Duloxetine HCl (Duloxetine Hcl 30 Mg Cap) 30 mg PO DAILY ROBERT Stop: 12/20/23 16:59 Last Admin: 11/29/23 09:23 Dose: 30 mg Documented By: Admin: 11/28/23 07:41 Dose: 30 mg Documented By: Admin: 11/27/23 07:33 Dose: 30 mg Documented By: Admin: 11/26/23 09:19 Dose: 30 mg Documented By: Admin: 11/25/23 09:29 Dose: 30 mg Documented By: Admin: 11/24/23 09:06 Dose: 30 mg Documented By: Admin: 11/23/23 08:49 Dose: 30 mg Documented By: Admin: 11/22/23 08:23 Dose: 30 mg Documented By: Admin: 11/21/23 08:20 Dose: 30 mg Documented By: Admin: 11/20/23 18:04 Dose: 30 mg Documented By: JANET Gabapentin (Gabapentin 300 Mg Cap) 600 mg PO TID ROBERT Stop: 12/28/23 20:59 Last Admin: 11/29/23 09:22 Dose: 600 mg Documented By: Admin: 11/28/23 19:33 Dose: 600 mg Documented By: KARINA Hydromorphone HCl (Hydromorphone Inj 0.5 Mg/0.5 Ml Syr) 0.5 mg IV Q6H PRN PRN Reason: Severe Pain (Scale 7, 8, 9,10) Stop: 12/10/23 16:51 Last Admin: 11/29/23 04:16 Dose: 0.5 mg Documented By: MLVinicius Admin: 11/28/23 08:59 Dose: 0.5 mg Documented By: Admin: 11/28/23 01:33 Dose: 0.5 mg Documented By: Admin: 11/27/23 18:06 Dose: 0.5 mg Documented By: Admin: 11/27/23 10:02 Dose: 0.5 mg Documented By: Admin: 11/26/23 23:52 Dose: 0.5 mg Documented By: Admin: 11/26/23 17:01 Dose: 0.5 mg Documented By: DIANA Ceftriaxone Sodium 2,000 mg/ (Dextrose) 50 mls @ 100 mls/hr IV Q24H [facility]; Protocol Stop: 12/07/23 11:29 Last Admin: 11/29/23 12:29 Dose: 100 mls/hr Documented By: Infusion: 11/28/23 14:05 Dose: Infused Documented By: Admin: 11/28/23 12:32 Dose: 100 mls/hr Documented By: GPYamilka Infusion: 11/27/23 13:41 Dose: Infused Documented By: Admin: 11/27/23 11:58 Dose: 100 mls/hr Documented By: DIANA Insulin Aspart (Insulin Aspart Per Unit Charge) 0 units SC ACHS ROBERT Stop: 12/25/23 00:00 Last Admin: 11/29/23 09:12 Dose: 7 units Documented By: NICOLE Co-signed By: GNIA Admin: 11/28/23 20:41 Dose: Not Given Documented By: Admin: 11/28/23 17:43 Dose: 3 units Documented By: REINA Co-signed By: WAYLON Admin: 11/28/23 12:32 Dose: 11 units Documented By: REINA Co-signed By: MARIANNE Admin: 11/28/23 08:58 Dose: 5 units Documented By: REINA Co-signed By: ALVIN Admin: 11/27/23 20:03 Dose: Not Given Documented By: Admin: 11/27/23 17:09 Dose: Not Given Documented By: Admin: 11/27/23 11:34 Dose: Not Given Documented By: DIANA Insulin Glargine (Lantus Per Unit Charge) 0 units SC HS [facility]; Protocol Stop: 12/27/23 20:59 Last Admin: 11/28/23 20:42 Dose: Not Given Documented By: Admin: 11/27/23 20:03 Dose: Not Given Documented By: PINKY Insulin Glargine (Lantus Per Unit Charge) 10 units SC DAILY ROBERT Stop: 12/29/23 08:59 Last Admin: 11/29/23 09:11 Dose: 10 units Documented By: NICOLE Co-signed By: GINA Levothyroxine Sodium (Levothyroxine Sodium 200 Mcg Tablet) 200 mcg PO DAILYBB [facility] Stop: 12/20/23 16:59 Last Admin: 11/29/23 06:33 Dose: 200 mcg Documented By: Admin: 11/28/23 07:37 Dose: 200 mcg Documented By: Admin: 11/27/23 06:01 Dose: 200 mcg Documented By: Admin: 11/26/23 05:54 Dose: 200 mcg Documented By: Admin: 11/25/23 05:31 Dose: 200 mcg Documented By: Admin: 11/24/23 05:23 Dose: 200 mcg Documented By: Admin: 11/23/23 05:26 Dose: 200 mcg Documented By: Admin: 11/22/23 05:28 Dose: 200 mcg Documented By: Admin: 11/21/23 05:21 Dose: 200 mcg Documented By: Admin: 11/20/23 18:04 Dose: 200 mcg Documented By: JANET Magnesium Hydroxide (Magnesium Hydroxide Susp 30 Ml Udc) 30 ml PO Q6H PRN PRN Reason: Constipation Stop: 12/22/23 17:58 Last Admin: 11/23/23 05:25 Dose: 30 ml Documented By: JESICA Magnesium Oxide (Magnesium Oxide 400 Mg Tab) 400 mg PO BID ROBERT Stop: 12/20/23 20:59 Last Admin: 11/29/23 09:23 Dose: 400 mg Documented By: Admin: 11/28/23 19:35 Dose: 400 mg Documented By: Admin: 11/28/23 09:08 Dose: 400 mg Documented By: GPYamilka Admin: 11/27/23 20:29 Dose: 400 mg Documented By: Admin: 11/25/23 09:28 Dose: 400 mg Documented By: Admin: 11/24/23 22:54 Dose: 400 mg Documented By: Admin: 11/24/23 09:05 Dose: 400 mg Documented By: Admin: 11/23/23 21:15 Dose: 400 mg Documented By: Admin: 11/23/23 08:46 Dose: 400 mg Documented By: Admin: 11/22/23 21:29 Dose: 400 mg Documented By: Admin: 11/22/23 08:21 Dose: 400 mg Documented By: Admin: 11/21/23 21:21 Dose: 400 mg Documented By: Admin: 11/21/23 08:22 Dose: 400 mg Documented By: Admin: 11/20/23 21:08 Dose: 400 mg Documented By: DINROAH Midodrine (Midodrine Hcl 2.5 Mg Tab) 5 mg PO TID@0800,1200,1700 [facility] Stop: 12/26/23 07:59 Last Admin: 11/29/23 12:29 Dose: 5 mg Documented By: Admin: 11/29/23 09:23 Dose: 5 mg Documented By: Admin: 11/28/23 17:43 Dose: 5 mg Documented By: Admin: 11/28/23 12:32 Dose: 5 mg Documented By: Admin: 11/28/23 10:23 Dose: 5 mg Documented By: Admin: 11/27/23 18:06 Dose: 5 mg Documented By: Admin: 11/27/23 11:58 Dose: 5 mg Documented By: Admin: 11/27/23 07:33 Dose: 5 mg Documented By: Admin: 11/26/23 17:47 Dose: 5 mg Documented By: Admin: 11/26/23 11:49 Dose: 5 mg Documented By: Admin: 11/26/23 08:10 Dose: 5 mg Documented By: DIANA Ondansetron HCl (Ondansetron 4 Mg Od Tab) 4 mg PO Q8H PRN PRN Reason: Nausea And Vomiting Stop: 12/24/23 20:38 Last Admin: 11/29/23 12:52 Dose: 4 mg Documented By: Admin: 11/28/23 10:50 Dose: 4 mg Documented By: Admin: 11/24/23 21:21 Dose: 4 mg Documented By: BINA Pantoprazole Sodium (Pantoprazole 40 Mg Tab) 40 mg PO DAILY [facility]; Protocol Stop: 12/21/23 08:59 Last Admin: 11/29/23 09:22 Dose: 40 mg Documented By: Admin: 11/28/23 09:09 Dose: 40 mg Documented By: GPYamilka Admin: 11/27/23 07:29 Dose: 40 mg Documented By: Admin: 11/26/23 08:12 Dose: 40 mg Documented By: Admin: 11/25/23 09:28 Dose: 40 mg Documented By: Admin: 11/24/23 09:06 Dose: 40 mg Documented By: Admin: 11/23/23 08:48 Dose: 40 mg Documented By: Admin: 11/22/23 08:24 Dose: 40 mg Documented By: Admin: 11/21/23 08:21 Dose: 40 mg Documented By: EASTON Ropinirole HCl (Ropinirole Hcl 2 Mg Tablet) 2 mg PO HS ROBERT Stop: 12/20/23 20:59 Last Admin: 11/28/23 19:34 Dose: 2 mg Documented By: Admin: 11/27/23 20:29 Dose: 2 mg Documented By: Admin: 11/26/23 20:00 Dose: 2 mg Documented By: Admin: 11/25/23 19:47 Dose: Not Given Documented By: Admin: 11/24/23 22:53 Dose: 2 mg Documented By: Admin: 11/23/23 21:16 Dose: 2 mg Documented By: Admin: 11/22/23 21:29 Dose: 2 mg Documented By: Admin: 11/21/23 21:21 Dose: 2 mg Documented By: Admin: 11/20/23 21:09 Dose: 2 mg Documented By: RES Senna/Docusate Sodium (Docusate Sodium/Senna 50/8.6mg Tab) 1 tab PO BID ROBERT Stop: 12/20/23 20:59 Last Admin: 11/29/23 09:22 Dose: 1 tab Documented By: Admin: 11/28/23 19:35 Dose: 1 tab Documented By: Admin: 11/28/23 07:41 Dose: 1 tab Documented By: Admin: 11/27/23 20:29 Dose: Not Given Documented By: Admin: 11/27/23 07:28 Dose: 1 tab Documented By: Admin: 11/26/23 20:03 Dose: 1 tab Documented By: Admin: 11/26/23 09:19 Dose: 1 tab Documented By: Admin: 11/25/23 19:47 Dose: Not Given Documented By: [email or web address] Admin: 11/25/23 09:29 Dose: 1 tab Documented By: Admin: 11/24/23 22:53 Dose: 1 tab Documented By: Admin: 11/24/23 09:05 Dose: 1 tab Documented By: Admin: 11/23/23 21:15 Dose: 1 tab Documented By: Admin: 11/23/23 08:47 Dose: 1 tab Documented By: Admin: 11/22/23 21:29 Dose: 1 tab Documented By: Admin: 11/22/23 08:23 Dose: 1 tab Documented By: Admin: 11/21/23 21:21 Dose: 1 tab Documented By: Admin: 11/21/23 08:22 Dose: 1 tab Documented By: Admin: 11/20/23 21:07 Dose: 1 tab Documented By: DINORAH Sodium Chloride (Sodium Chloride 0.65% Na Soln 45 Ml ([place])) 2 sprays NA TID PRN PRN Reason: Nasal Congestion Stop: 12/21/23 00:12 Last Admin: 11/21/23 00:58 Dose: 2 sprays Documented By: DINORAH Tramadol HCl (Tramadol Hcl 50 Mg Tablet) 50 mg PO Q4H PRN PRN Reason: Pain Stop: 12/28/23 15:16 Last Admin: 11/29/23 00:28 Dose: 50 mg Documented By: KARINA Trazodone HCl (Trazodone Hcl 50 Mg Tab) 50 mg PO QPM ROBERT Stop: 12/28/23 20:59 Last Admin: 11/28/23 19:34 Dose: 50 mg Documented By: KARINA Coding Level of Care Code 06489 [facility] Intl Hosp Care Lvl 2 Diagnoses Major depression, recurrent F33.9
[2023-11-29] MEDS: FUROSEMIDE 40 MG/4 ML VIAL IV ONE (13:12)
--- NOTE | 2023-11-29 16:13 | Hospitalist Progress Note ---
Date of Service November 29, 2023 Assessment & Plan (1) Ambulatory dysfunction: (2) Weakness: (3) Type 2 diabetes, uncontrolled, with neuropathy: (4) Chronic diastolic heart failure: (5) Chronic respiratory failure: (6) CKD (chronic kidney disease), stage III: (7) ELISSA on CPAP: (8) HTN (hypertension): (9) Hypothyroidism: (10) Depression with anxiety: (11) History of pulmonary embolism: (12) Constipation: Plan This is a 68 y/o female with a history of chronic respiratory failure due to probable interstitial lung disease, on chronic O2 at 4 L, ELISSA on CPAP, chronic diastolic heart failure, PVD, HTN, hyperlipidemia, insulin-requiring DM, CKD with baseline creatinine ~1.6, prior DVT/PE, s/p IVC filter placement and on Eliquis, hx HIT, hypothyroidism, fibromyalgia, RLS and depression who presents to the ED today after a fall at home. Work-up in the ED was negative for acute injury, but pt reported severe pain in her knees when she attempted an ambulatory trial in the ED. She feels like she unsafe to return home on her own so she was referred for admission and possible rehab placement. Of note, it appears that she was originally supposed go to [facility] for rehab after her admission in late Sep (d/c on 10/28) but she declined this option as she had no one to take care of her cats. She is willing to consider possible rehab placement 11/24. Course complicated by abdominal/flank pain overnight, hypotension, and encephalopathy on 11/25. CT abd pelvis with right hydronephrosis with UPJ obstruction. Urology consulted and stent placed on 11/25 with return of purulent urine. Suspect likely source of sepsis After stent placement, patient hypotensive and not fluid responsive, transferred to ICU on 11/25 for management of septic shock. On 11/26, patient with central line placement and required brief pressor support which discontinued the morning of 11/27. Patient deemed stable for transfer. Overnight of 11/27, patient with suicidal ideation prompting 1:1 sitter. Psych evaluated and deemed 1:1 support no longer necessary, #depression Reported SI overnight, bried 1:1, now clear by Psych continue meds -Resume Gabapentin 600mg TID dosing (downtitrated in ICU) -Resume home trazadone 50mg (home is 100mg) -Medicare waiting list for therapist pending #Acute toxic metabolic encephalopathy 2/2 infection *improved manage as follows delirium precautions Diet in place Resume home fibromyalgia regimen #Septic shock, likely secondary to acute on chronic UPJ obstruction #Right hydronephrosis s/p stent placement -CT scan with the same chronic findings as prior exams, however given clinical deterioration consulted urology -s/p stent placement 11/24 -notable hypotensive s/p procedure -Discontinue Vanc Zosyn for CTX -Follow cultures: serratia in urine obtained from stent placement -Other infectious work up: knee less suspicious for infectious etiology at this time, likely above urologic source, ortho following -ICU consulted, transferred to ICU on 11/24 -Pressor discontinued net repairer, 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 at this time -Following infectious work up, cultures with serratia sensitive to CTX will continue at this time -Can discharge with course of cipro v cefdinir Continue Midodrine 5mg TID Await recommendations from Urology for follow up post stent #ELSIE on Chronic, stable. Baseline creatinine around 1.6 *improving Avoid nephrotoxic agents iso sepsis Cr up to 2.54 s/p stenting procure, prerenal 2/2 hypotension Consult nephrology 2/2 ELSIE and volume concerns: CTM to trend BMP -Now with signs of volume overload iso resuscitation -IV lasix 40mg x 1 -Consider resuming 60mg BID per nephrology recommendations and hemodynamics #Acute on chronic respiratory failure, multifactorial *back to baseline, #Acute on Chronic heart failure with preserved ejection fraction On 4 L O2 chronically Iatrogenic iso IVF for sepsis Patient now s/p stent placement, after procedure requiring CPAP Needing to push fluid, however, concern for volume overload, will need to likely diurese once sepsis resolves =Iv lasix x 1 as above Resume home dosing as hemodynamics allow #Ambulatory dysfunction #Severe left knee osteoarthritis Ongoing bilateral knee pain, h/o R TKA by Dr. Carrillo years ago and following with [facility] ortho for L knee OA with plans for possible future L TKA but process complicated by BMI and other comorbidities. Patient has been losing weight, due to re-evaluate possibility of TKA but interested in second opinion. Routine consult placed for [facility] ortho. - Fall precautions - Pain control prn -Accepted to rehab, bed not available until early next week -Ortho following: will need OP follow up to discuss surgical intervention #DMTII Chronic, pt reports sugars have been stable for her since being discharged SSI #Hypothyroidism Chronic, stable; TSH low, decrease levothyroxine from 250->200meq Continue levothyroxine #Constipation bowel regimen #Prior PE IVC filter, continue eliquis Code Status: Full code DVT Prophylaxis: continue Eliquis, has IVC filter Disposition Still on midodrine at this time, adjusting lasix, will need rehab when clear Admission and Anticipated Discharge Date Admission Date: November 20, 2023 Subjective Patient evaluated at bedside Reported with SI overnight. This morning she states she is better, but she just felt so "downright depressed" She denies abdominal pain, chest pain, or other acute concerns Denies any active si at this time Pleading for abdalla removal on exam, given clear urine and clinical improvement will remove Physical Exam Constitutional: WD/WN, vitals as above Respiratory: trace bibasilar crackles Cardiovascular: RRR, 1+ BLE edema Genitourinary: abdalla with clear urine output Results & Data Results & Data Vital Signs (Past 12 Hours) Vital Signs Temp Pulse Pulse Resp BP Pulse Ox O2 Del Method 11/29/23 15:10 81 11/29/23 12:00 36.7 C 77 18 107/66 97 Nasal Cannula 11/29/23 11:01 36.5 C 75 18 128/65 96 Nasal Cannula 11/29/23 09:00 Nasal Cannula 11/29/23 09:00 75 11/29/23 06:54 36.5 C 73 18 121/72 95 Nasal Cannula 11/29/23 04:21 104/61 O2 Flow Rate 11/29/23 15:10 11/29/23 12:00 4 11/29/23 11:01 4 11/29/23 09:00 4 11/29/23 09:00 11/29/23 06:54 4 11/29/23 04:21 Laboratory Results Short CBC 11/29/23 Range/Units 06:32 WBC 6.54 (4.8-10.8) K/ul Hgb 9.6 L (12.0-16.0) g/dl Hct 31.4 L (37.0-47.0) % Plt Count 279 (130-400) K/uL BMP 11/29/23 05:27 Sodium 139 Potassium 3.7 Chloride 106 Carbon Dioxide 27 BUN 27 H Creatinine 1.25 H D Glucose 102 H Calcium 9.0 Medications Administered Home Medications Medication Instructions Recorded Confirmed Last Taken aspirin 81 mg tablet,delayed 81 mg PO DAILY 09/20/23 11/20/23 11/19/23 release atorvastatin 20 mg tablet 20 mg PO DAILY 09/20/23 11/20/23 11/19/23 baclofen 10 mg tablet 10 mg PO BID PRN Muscle Spasm 09/20/23 11/20/23 Unknown clonazepam 0.5 mg tablet 0.5 mg PO BID 09/20/23 11/20/23 11/19/23 clopidogrel 75 mg tablet 75 mg PO DAILY 09/20/23 11/20/23 11/19/23 duloxetine 60 mg capsule,delayed See Rx Instructions .Route .COMPLEX 09/20/23 11/20/23 11/19/23 release furosemide 40 mg tablet 60 mg PO BID 09/20/23 11/20/23 11/19/23 gabapentin 300 mg capsule 600 mg PO TID 09/20/23 11/20/23 11/19/23 insulin aspart U-100 100 unit/mL 8 unit subcut UD 09/20/23 11/20/23 11/19/23 (3 mL) subcutaneous pen (Novolog FlexPen U-100 Insulin aspart) insulin degludec 100 unit/mL (3 50 unit subcut HS 09/20/23 11/20/23 11/19/23 mL) subcutaneous pen (Tresiba FlexTouch U-100 insulin) levothyroxine 200 mcg tablet See Rx Instructions .Route .COMPLEX 09/20/23 11/20/23 11/19/23 levothyroxine 50 mcg tablet See Rx Instructions .Route .COMPLEX 09/20/23 11/20/23 11/19/23 magnesium oxide 400 mg (241.3 mg 400 mg PO BID 09/20/23 11/20/23 11/19/23 magnesium) tablet omeprazole 20 mg capsule,delayed 20 mg PO DAILY 09/20/23 11/20/23 11/19/23 release oxycodone 5 mg tablet 5 mg PO Q6H PRN Pain 09/20/23 11/20/23 Unknown potassium chloride 20 mEq 20 meq PO BID 09/20/23 11/20/23 11/19/23 tablet,extended release(part/cryst) ropinirole 2 mg tablet 2 mg PO HS 09/20/23 11/20/23 11/19/23 sennosides 8.6 mg-docusate sodium 1 tab PO BID 09/20/23 11/20/23 11/19/23 50 mg tablet (Senna-Time S) tirzepatide 5 mg/0.5 mL 5 mg subcut WK 09/20/23 11/20/23 11/16/23 subcutaneous pen injector (Kevan) tramadol 50 mg tablet 50 mg PO TID PRN Pain 09/20/23 11/20/23 Unknown trazodone 100 mg tablet 100 mg PO HS 09/20/23 11/20/23 11/19/23 Vit D3 1000iu 200+50 Softge 1 tab PO QAM 10/24/23 11/20/23 11/19/23 apixaban 2.5 mg tablet (Eliquis) 2.5 mg PO BID 10/24/23 11/20/23 11/19/23 dicyclomine 20 mg tablet 20 mg PO QID PRN abdominal cramping 10/24/23 11/20/23 Unknown duloxetine 30 mg capsule,delayed See Rx Instructions .Route .COMPLEX 10/24/23 0 11/20/23 11/19/23 release triamcinolone acetonide 0.5 % 1 applic topical BID PRN chest rash 10/24/23 11/20/23 Unknown topical cream Active Medications Generic Name Dose Route Start Last Admin Trade Name Freq PRN Reason Stop Dose Admin Acetaminophen 650 mg 11/21/23 00:54 11/28/23 20:38 Acetaminophen 325 Mg Tab PO 12/21/23 00:53 650 mg QID PRN Administration pain/fever Apixaban 2.5 mg 11/20/23 21:00 11/29/23 09:22 Apixaban 2.5 Mg Tab PO 12/20/23 20:59 2.5 mg BID ROBERT Administration Aspirin 81 mg 11/21/23 09:00 11/29/23 09:22 Aspirin 81 Mg Ectab PO 12/21/23 08:59 81 mg DAILY ROBERT Administration Atorvastatin Calcium 20 mg 11/21/23 09:00 11/29/23 09:22 Atorvastatin 20 Mg Tab PO 12/21/23 08:59 20 mg DAILY ROBERT Administration Baclofen 10 mg 11/20/23 16:25 11/28/23 20:36 Baclofen 10 Mg Tab PO 12/20/23 16:24 10 mg BID PRN Administration Muscle Spasm Clonazepam 0.25 mg 11/26/23 09:15 11/29/23 09:21 Clonazepam 0.25 Mg Tab PO 12/26/23 09:14 0.25 mg BID ROBERT Administration Clopidogrel Bisulfate 75 mg 11/21/23 09:00 11/29/23 09:22 Clopidogrel Bisulfate 75 Mg Tab PO 12/21/23 08:59 75 mg DAILY ROBERT Administration Diclofenac Sodium 2 gm 11/23/23 13:45 11/29/23 12:29 Diclofenac Sod 1% Gel 100 Gm Tube EXT 12/23/23 13:44 2 gm Q6 ROBERT Administration Protocol Dicyclomine HCl 20 mg 11/20/23 16:25 11/26/23 20:00 Dicyclomine Hcl 20 Mg Tab PO 12/20/23 16:24 20 mg QID PRN Administration abdominal cramping Duloxetine HCl 60 mg 11/20/23 17:00 11/29/23 09:21 Duloxetine Hcl 60 Mg Cap PO 12/20/23 16:59 60 mg DAILY ROBERT Administration Duloxetine HCl 30 mg 11/20/23 17:00 11/29/23 09:23 Duloxetine Hcl 30 Mg Cap PO 12/20/23 16:59 30 mg DAILY ROBERT Administration Gabapentin 600 mg 11/28/23 21:00 11/29/23 14:15 Gabapentin 300 Mg Cap PO 12/28/23 20:59 600 mg TID ROBERT Administration Hydromorphone HCl 0.5 mg 11/26/23 16:52 11/29/23 04:16 Hydromorphone Inj 0.5 Mg/0.5 Ml Syr IV 12/10/23 16:51 0.5 mg Q6H PRN Administration Severe Pain (Scale 7, 8, 9,10) Ceftriaxone Sodium 2,000 mg/ 50 mls @ 100 mls/hr 11/27/23 11:30 11/29/23 13:06 Dextrose IV 12/07/23 11:29 Infused Q24H ROBERT Infusion Protocol Insulin Aspart 0 units 11/27/23 11:30 11/29/23 13:11 Insulin Aspart Per Unit Charge SC 12/25/23 00:00 6 units ACHS ROBERT Administration Insulin Glargine 10 units 11/29/23 09:00 11/29/23 09:11 Lantus Per Unit Charge SC 12/29/23 08:59 10 units DAILY ROBERT Administration Levothyroxine Sodium 200 mcg 11/20/23 17:00 11/29/23 06:33 Levothyroxine Sodium 200 Mcg Tablet PO 12/20/23 16:59 200 mcg DAILYBB ROBERT Administration Magnesium Hydroxide 30 ml 11/22/23 17:59 11/23/23 05:25 Magnesium Hydroxide Susp 30 Ml Udc PO 12/22/23 17:58 30 ml Q6H PRN Administration Constipation Magnesium Oxide 400 mg 11/20/23 21:00 11/29/23 09:23 Magnesium Oxide 400 Mg Tab PO 12/20/23 20:59 400 mg BID ROBERT Administration Midodrine 5 mg 11/26/23 08:00 11/29/23 12:29 Midodrine Hcl 2.5 Mg Tab PO 12/26/23 07:59 5 mg TID@0800,1200,1700 ROBERT Administration Ondansetron HCl 4 mg 11/24/23 20:39 11/29/23 12:52 Ondansetron 4 Mg Od Tab PO 12/24/23 20:38 4 mg Q8H PRN Administration Nausea And Vomiting Pantoprazole Sodium 40 mg 11/21/23 09:00 11/29/23 09:22 Pantoprazole 40 Mg Tab PO 12/21/23 08:59 40 mg DAILY ROBERT Administration Protocol Ropinirole HCl 2 mg 11/20/23 21:00 11/28/23 19:34 Ropinirole Hcl 2 Mg Tablet PO 12/20/23 20:59 2 mg HS ROBERT Administration Senna/Docusate Sodium 1 tab 11/20/23 21:00 11/29/23 09:22 Docusate Sodium/Senna 50/8.6mg Tab PO 12/20/23 20:59 1 tab BID ROBERT Administration Sodium Chloride 2 sprays 11/21/23 00:13 11/21/23 00:58 Sodium Chloride 0.65% Na Soln 45 Ml ([place]) NA 12/21/23 00:12 2 sprays TID PRN Administration Nasal Congestion Tramadol HCl 50 mg 11/28/23 15:17 11/29/23 00:28 Tramadol Hcl 50 Mg Tablet PO 12/28/23 15:16 50 mg Q4H PRN Administration Pain Trazodone HCl 50 mg 11/28/23 21:00 11/28/23 19:34 Trazodone Hcl 50 Mg Tab PO 12/28/23 20:59 50 mg QPM ROBERT Administration (5) Chronic respiratory failure Respiratory failure complication: hypoxia Qualified Code(s): J96.11 - Chronic respiratory failure with hypoxia (6) CKD (chronic kidney disease), stage III Chronic kidney disease stage 3 subtype: unspecified whether 3a or 3b Qualified Code(s): N18.30 - Chronic kidney disease, stage 3 unspecified (8) HTN (hypertension) Hypertension type: primary hypertension Qualified Code(s): I10 - Essential (primary) hypertension (9) Hypothyroidism Hypothyroidism type: unspecified Qualified Code(s): E03.9 - Hypothyroidism, unspecified
[2023-11-30] MEDS: bisacodyL 5 MG TABEC PO PRN (05:32)
--- NOTE | 2023-11-30 08:38 | Pharmacy Report ---
Pharmacy Glycemic Short Note 2 - Date of Service November 30, 2023 - Glycemic Short BSG Results (Last 24 hours): 11/29/23 11/29/23 11/29/23 11:31 16:30 19:29 POC Glucose 120 H 89 121 H 11/30/23 11/30/23 06:55 07:50 POC Glucose 131 H 139 H OUTPATIENT ANTIDIABETIC REGIMEN: * Tresiba 50 units SQ HS * Novolog 8 units SQ breakfast/lunch, 10 units dinner * tirzepatide 5mg SQ weekly HbA1C: 7.5% (11/20/23) ASSESSMENT: 11/30/23: * Blood sugars have been very well-controlled over past 48 hours, ranging 89-131 mg/dL * Will continue glycemic consult, as prior inpatient insulin needs have been much higher than current ones * Will increase basal by 20% today given rising fasting BSG. Continue current Novolog parameters. * ELSIE resolved 11/27/23: * Blood sugars well controlled - reduce basal this AM for BSGs in 90s and NPO. * Diet resumed at Lunch, will put on PRN Lantus dose tonight * Pt improving, downgraded from ICU status Background: * Pt is a 68 year old female known to the glycemic pharmacy service admitted with ambulatory dysfunction. History of DM2. Pharmacy consulted to assist with inpatient glycemic management. * BSGs [phone]/dL since admission. Received 15 units of Lantus last night and no bolus insulin. * Ordered a diet, other stressors stable. * Lantus 15 units again this AM (fasting BSG within goal range and decreased PO yesterday). Will plan for an HS Lantus scale tonight depending on BSG. Novolog moderate stress scale for now. PLAN FOR INPATIENT GLYCEMIC CONTROL: * Basal insulin * Lantus 12 units SC daily * Bolus insulin * NovoLog per scale ACHS or Q6hrs while NPO * Goal Range: Low 110 mg/dL - High 140 mg/dL * Correction Factor: 20 mg/dL/unit * Nutritional / Prandial insulin per carb ratio of 1 unit per 5 grams CHO consumed
[2023-11-30] MEDS: LANTUS PER UNIT CHARGE SC SCH (08:43)
[2023-11-30 11:02] LABS: Basophils # (auto) 0.04 K/uL (0.00-0.20); Basophils % (auto) 0.5 %; Eosinophils # (auto) 0.78 K/uL (0.00-0.50); Hemoglobin 10.3 g/dl (12.0-16.0); Immature Granulocytes # (auto) 0.08 K/uL (0.01-0.20); Lymphocytes # (auto) 2.53 K/uL (1.20-3.40); Lymphocytes % (auto) 32.3 %; Mean Corpuscular Hemoglobin 26.7 pg (25.0-34.0); Mean Corpuscular Hgb Conc 29.4 g/dL (32.0-36.0); Mean Corpuscular Volume 90.7 fL (80.0-100.0); Monocytes # (auto) 0.58 K/uL (0.11-0.59); Monocytes % (auto) 7.4 %; Neutrophils # (auto) 3.82 K/uL (1.40-6.50); Neutrophils % (auto) 48.8 %; Platelet Count 326 K/uL (130-400); RDW Coefficient of Variation 15.3 % (11.5-14.5); RDW Standard Deviation 50.4 fL (36.4-46.3); Red Blood Count 3.86 M/uL (4.20-5.40); White Blood Count 7.83 K/ul (4.8-10.8)
[2023-11-30 11:12] LABS: BUN Creatinine Ratio 15.9 (10-20); Calcium 9.3 mg/dl (8.6-10.3); Est GFR (African American) 45.4 ml/min; Est GFR (Non-African American) 39.2 ml/min; Potassium 3.4 mmol/L (3.5-5.1)
[2023-11-30] MEDS: NYSTATIN SUSP 500,000 U/5 ML UDC PO SCH (17:22)
--- NOTE | 2023-11-30 18:44 | Hospitalist Progress Note ---
Date of Service November 30, 2023 Assessment & Plan (1) Ambulatory dysfunction: Plan: per previous hospitalist notes with addendum: (1) Ambulatory dysfunction: (2) Weakness: (3) Type 2 diabetes, uncontrolled, with neuropathy: (4) Chronic diastolic heart failure: (5) Chronic respiratory failure: (6) CKD (chronic kidney disease), stage III: (7) ELISSA on CPAP: (8) HTN (hypertension): (9) Hypothyroidism: (10) Depression with anxiety: (11) History of pulmonary embolism: (12) Constipation: Plan This is a 68 y/o female with a history of chronic respiratory failure due to probable interstitial lung disease, on chronic O2 at 4 L, ELISSA on CPAP, chronic diastolic heart failure, PVD, HTN, hyperlipidemia, insulin-requiring DM, CKD with baseline creatinine ~1.6, prior DVT/PE, s/p IVC filter placement and on Eliquis, hx HIT, hypothyroidism, fibromyalgia, RLS and depression who presents to the ED today after a fall at home. Work-up in the ED was negative for acute injury, but pt reported severe pain in her knees when she attempted an ambulatory trial in the ED. She feels like she unsafe to return home on her own so she was referred for admission and possible rehab placement. Of note, it appears that she was originally supposed go to [facility] for rehab after her admission in late Sep (d/c on 10/28) but she declined this option as she had no one to take care of her cats. She is willing to consider possible rehab placement 11/24. Course complicated by abdominal/flank pain overnight, hypotension, and encephalopathy on 11/25. CT abd pelvis with right hydronephrosis with UPJ obstruction. Urology consulted and stent placed on 11/25 with return of purulent urine. Suspect likely source of sepsis After stent placement, patient hypotensive and not fluid responsive, transferred to ICU on 11/25 for management of septic shock. On 11/26, patient with central line placement and required brief pressor support which discontinued the morning of 11/27. Patient deemed stable for transfer. Overnight of 11/27, patient with suicidal ideation prompting 1:1 sitter. Psych evaluated and deemed 1:1 support no longer necessary, #Ambulatory dysfunction #Severe left knee osteoarthritis Ongoing bilateral knee pain, h/o R TKA by Dr. Carrillo years ago and following with [facility] for L knee OA with plans for possible future L TKA but process complicated by BMI and other comorbidities. Patient has been losing weight, due to re-evaluate possibility of TKA but interested in second opinion. Routine consult placed for [facility]. - Fall precautions - Pain control prn -Accepted to rehab, bed not available until early next week -Ortho following: will need OP follow up to discuss surgical intervention #Septic shock, likely secondary to acute on chronic UPJ obstruction #Right hydronephrosis s/p stent placement -CT scan with the same chronic findings as prior exams, however given clinical deterioration consulted urology -s/p stent placement 11/24 -notable hypotensive s/p procedure -Discontinue Vanc Zosyn for CTX -Follow cultures: serratia in urine obtained from stent placement -Other infectious work up: knee less suspicious for infectious etiology at this time, likely above urologic source, ortho following -ICU consulted, transferred to ICU on 11/24 -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, 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 at this time -Following infectious work up, cultures with serratia sensitive to CTX will cont inue at this time -Can discharge with course of cipro v cefdinir Continue Midodrine 5mg TID Await recommendations from Urology for follow up post stent 11/29 continue Ceftriaxone IV continue Midodrine #Acute on chronic respiratory failure, multifactorial *back to baseline, #Acute on Chronic heart failure with preserved ejection fraction On 4 L O2 chronically Iatrogenic iso IVF for sepsis Patient now s/p stent placement, after procedure requiring CPAP Needing to push fluid, however, concern for volume overload, will need to likely diurese once sepsis resolves =Iv lasix x 1 as above Resume home dosing as hemodynamics allow 3/6 on 4 L O2 Nephro on board for diuresis #ELSIE on Chronic, stable. Baseline creatinine around 1.6 *improving Avoid nephrotoxic agents iso sepsis Cr up to 2.54 s/p stenting procure, prerenal 2/2 hypotension Consult nephrology 2/2 ELSIE and volume concerns: CTM to trend BMP -Now with signs of volume overload iso resuscitation -IV lasix 40mg x 1 -Consider resuming 60mg BID per nephrology recommendations and hemodynamics 3/6 improved now at 1.3 Nephro following #Acute toxic metabolic encephalopathy 2/2 infection *improved manage as follows delirium precautions Diet in place Resume home fibromyalgia regimen 3/6 resolved #depression Reported SI overnight, bried 1:1, now clear by Psych continue meds -Resume Gabapentin 600mg TID dosing (downtitrated in ICU) -Resume home trazadone 50mg (home is 100mg) -Medicare waiting list for therapist pending #DMTII Chronic, pt reports sugars have been stable for her since being discharged [facility] #Hypothyroidism Chronic, stable; TSH low, decrease levothyroxine from 250->200meq Continue levothyroxine #Constipation bowel regimen #Prior PE IVC filter, continue eliquis Code Status: Full code DVT Prophylaxis: continue Eliquis, has IVC filter Disposition Still on midodrine at this time, adjusting lasix, will need rehab when clear Plan Pt seen and reviewed with collaborating physician, Dr. Montes. Plan of care discussed and as outlined above. Code Status: Full code DVT Prophylaxis: continue Eliquis, has IVC filter Jaylen Suarez PA-C Admission and Anticipated Discharge Date Admission Date: November 20, 2023 Subjective ff up for sepsis, etc seen resting in bed, comfortable was having abdominal pain earlier, improved report pain on the R LE, chronic reports pain on the roof of the mouth and under the tongue no chest pain, dyspnea, palpitations, dizziness no other symptoms Review of Systems Review of Systems: all noted and negative except for above Physical Exam Physical Exam: General- oriented x 3, not in distress, speaks in sentences with no effort or accessory muscle use Mouth- (+) thrush under the tongue Eyes- anicteric Neck- no JVD Lungs- clear breath sounds bilaterally, no rales/wheezes Heart- normal rate, regular rhythm; no murmurs Abdomen- normal bowel sounds, nondistended, soft, nontender Extremities- mild pretibial edema, no calf tenderness Neuro- alert, oriented x 3; no gross focal neurologic deficits Skin- warm & dry Results & Data Results & Data Vital Signs (Past 12 Hours) Vital Signs Temp Pulse Pulse Resp BP BP Pulse Ox 11/30/23 15:17 36.6 C 76 19 98/50 L 99 11/30/23 15:05 79 11/30/23 11:33 36.5 C 86 19 119/66 100 11/30/23 09:00 11/30/23 07:50 100 H 11/30/23 07:21 36.6 C 71 20 102/54 L 98 O2 Del Method O2 Flow Rate 11/30/23 15:17 Nasal Cannula 4 11/30/23 15:05 11/30/23 11:33 Nasal Cannula 4 11/30/23 09:00 Nasal Cannula 4 11/30/23 07:50 11/30/23 07:21 Nasal Cannula 4 all noted and reviewed including below
[2023-12-01 06:23] LABS: BUN Creatinine Ratio 14.1 (10-20); Creatinine Clr Calc Pharmacy 58.3 ml/min; Est GFR (African American) 49.7 ml/min; Est GFR (Non-African American) 42.9 ml/min; Potassium 3.5 mmol/L (3.5-5.1)
--- NOTE | 2023-12-01 09:17 | Nephrology Progress Note ---
Date of Service December 01, 2023 Assessment & Plan (1) Acute on chronic kidney failure: Plan: resolved Stage 1 nonoliguric ELSIE from ischemic ATN in the setting of septic shock, still with relative hypotension at times but no longer pressor dependent as she was early this admission baseline creatinine about 1.6; up to 2.4-2.5 in the wake of stenting and septic shock, s/p more than adequate crystalloid resuscitation proteinuria and hematuria not meaningful in current state after instrumentation > Now on ceftriaxone rather than vanco and zosyn chemistries and volume status acceptable -BP maintained currently with Midodrine which she appears to be tolerating >> will lower to bid Daily basic metabolic panel Will sign off NEPHRO d/c recs -hospital d/c nephro visit w/ Dr Lenz in about 3 weeks w/ bmp, pth, 25OHD, phos, urorisk < a 24 hr urine; may need to enlist [email or web address] to help her get supplies/set up for 24 hr urine study; pls do 24 hr urine 10 days before clinic appt -bmp at pcp f/u visit -could consider d/c on bid midodrine if needed -resume lasix but increase from 60->>80 mg bid17 and K 20 mEq but increase to three times daily at d/c Admission and Anticipated Discharge Date Admission Date: November 20, 2023 Subjective Seen on mid day rounds. States she is feeling and doing much better. Still with mild lower extremity edema. No nausea vomiting. Feels her breathing is at baseline. Denies new or worrisome voiding problems Review of Systems 2 Review of Systems: All systems reviewed & are unremarkable except as noted in Subjective Physical Exam 2 Constitutional: well developed, well nourished, + morbidly obese and cooperative; no acute distress Eyes: EOM intact bilaterally ENMT: Ears: no external ear abnormality Nose: no external nose abnormality Mouth: + dry oral mucous membranes Neck: no nuchal rigidity Respiratory: normal respiratory effort Auscultation: + diminished lung sounds and + crackles ( bibasilar) Cardiovascular: Rate/Rhythm: regular rate and regular rhythm Extremities: + edema ( trace bilateral ankle) Gastrointestinal (Abdomen): Inspection/Auscultation: normal bowel sounds P ercussion/Palpation: abdomen soft; abdomen nontender Musculoskeletal: Extremities: strength 5/5 throughout Skin: no rashes, warm and dry Neurologic: moves all extremities, fluent speech, no tremor, generalized weakness /walker dependent Results & Data Vital Signs (Past 12 Hours) Vital Signs Temp Pulse Pulse Resp BP Pulse Ox O2 Del Method 12/01/23 07:49 36.2 C L 75 17 111/56 L 97 Room Air 12/01/23 03:09 36.5 C 69 18 125/64 94 CPAP 12/01/23 00:20 80 11/30/23 23:50 74 18 98 11/30/23 23:13 36.7 C 96 H 18 127/71 97 Nasal Cannula O2 Flow Rate 12/01/23 07:49 12/01/23 03:09 12/01/23 00:20 11/30/23 23:50 4 11/30/23 23:13 4 Laboratory Results 11/30/23 10:22 12/01/23 05:33 (1) Acute on chronic kidney failure Acute renal failure type: with other specified pathological lesion
--- NOTE | 2023-12-01 17:45 | Hospitalist Progress Note ---
Date of Service December 01, 2023 Assessment & Plan (1) Ambulatory dysfunction: Plan: per previous hospitalist notes with addendum: (1) Ambulatory dysfunction: (2) Weakness: (3) Type 2 diabetes, uncontrolled, with neuropathy: (4) Chronic diastolic heart failure: (5) Chronic respiratory failure: (6) CKD (chronic kidney disease), stage III: (7) ELISSA on CPAP: (8) HTN (hypertension): (9) Hypothyroidism: (10) Depression with anxiety: (11) History of pulmonary embolism: (12) Constipation: Plan This is a 68 y/o female with a history of chronic respiratory failure due to probable interstitial lung disease, on chronic O2 at 4 L, ELISSA on CPAP, chronic diastolic heart failure, PVD, HTN, hyperlipidemia, insulin-requiring DM, CKD with baseline creatinine ~1.6, prior DVT/PE, s/p IVC filter placement and on Eliquis, hx HIT, hypothyroidism, fibromyalgia, RLS and depression who presents to the ED today after a fall at home. Work-up in the ED was negative for acute injury, but pt reported severe pain in her knees when she attempted an ambulatory trial in the ED. She feels like she unsafe to return home on her own so she was referred for admission and possible rehab placement. Of note, it appears that she was originally supposed go to [facility] for rehab after her admission in late Sep (d/c on 10/28) but she declined this option as she had no one to take care of her cats. She is willing to consider possible rehab placement 11/24. Course complicated by abdominal/flank pain overnight, hypotension, and encephalopathy on 11/25. CT abd pelvis with right hydronephrosis with UPJ obstruction. Urology consulted and stent placed on 11/25 with return of purulent urine. Suspect likely source of sepsis After stent placement, patient hypotensive and not fluid responsive, transferred to ICU on 11/25 for management of septic shock. On 11/26, patient with central line placement and required brief pressor support which discontinued the morning of 11/27. Patient deemed stable for transfer. Overnight of 11/27, patient with suicidal ideation prompting 1:1 sitter. Psych evaluated and deemed 1:1 support no longer necessary, #Ambulatory dysfunction #Severe left knee osteoarthritis Ongoing bilateral knee pain, h/o R TKA by Dr. Carrillo years ago and following with [facility] for L knee OA with plans for possible future L TKA but process complicated by BMI and other comorbidities. Patient has been losing weight, due to re-evaluate possibility of TKA but interested in second opinion. Routine consult placed for [facility]. - Fall precautions - Pain control prn -Accepted to rehab, bed not available until early next week -Ortho following: will need OP follow up to discuss surgical intervention #Septic shock, likely secondary to acute on chronic UPJ obstruction #Right hydronephrosis s/p stent placement -CT scan with the same chronic findings as prior exams, however given clinical deterioration consulted urology -s/p stent placement 11/24 -notable hypotensive s/p procedure -Discontinue Vanc Zosyn for CTX -Follow cultures: serratia in urine obtained from stent placement -Other infectious work up: knee less suspicious for infectious etiology at this time, likely above urologic source, ortho following -ICU consulted, transferred to ICU on 11/24 -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, 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 at this time -Following infectious work up, cultures with serratia sensitive to CTX will continue at this time -Can discharge with course of cipro v cefdinir Continue Midodrine 5mg TID Await recommendations from Urology for follow up post stent 11/30 continue Ceftriaxone IV continue Midodrine #Acute on chronic respiratory failure, multifactorial *back to baseline, #Acute on Chronic heart failure with preserved ejection fraction On 4 L O2 chronically Iatrogenic iso IVF for sepsis Patient now s/p stent placement, after procedure requiring CPAP Needing to push fluid, however, concern for volume overload, will need to likely diurese once sepsis resolves =Iv lasix x 1 as above Resume home dosing as hemodynamics allow 11/29 on 4 L O2 Nephro on board, given IV Lasix resume PO Lasix upon discharge #ELSIE on Chronic stable. Baseline creatinine around 1.6 *improving Avoid nephrotoxic agents iso sepsis Cr up to 2.54 s/p stenting procure, prerenal 2/2 hypotension Consult nephrology 2/2 ELSIE and volume concerns: CTM to trend BMP -Now with signs of volume overload iso resuscitation -IV lasix 40mg x 1 -Consider resuming 60mg BID per nephrology recommendations and hemodynamics 11/30 improved now at 1.0 #Acute toxic metabolic encephalopathy 2/2 infection *improved manage as follows delirium precautions Diet in place Resume home fibromyalgia regimen 11/29 resolved #depression Reported SI overnight, bried 1:1, now clear by Psych continue meds -Resume Gabapentin 600mg TID dosing (downtitrated in ICU) -Resume home trazadone 50mg (home is 100mg) -Medicare waiting list for therapist pending #DMTII Chronic, pt reports sugars have been stable for her since being discharged [facility] #Hypothyroidism Chronic, stable; TSH low, decrease levothyroxine from 250->200meq Continue levothyroxine #Constipation bowel regimen #Prior PE IVC filter, continue eliquis Code Status: Full code DVT Prophylaxis: continue Eliquis, has IVC filter Disposition Still on midodrine at this time, adjusting lasix, will need rehab when clear Plan Pt seen and reviewed with collaborating physician, Dr. Montes. Plan of care discussed and as outlined above. Code Status: Full code DVT Prophylaxis: continue Eliquis, has IVC filter Jaylen Suarez PA-C Admission and Anticipated Discharge Date Admission Date: November 20, 2023 Subjective ff up for sepsis, etc seen resting in chair, on 2L comfortable, not in distress states she feels improved compared to yesterday abdominal pain improving no chest pain, dyspnea, palpitations, dizziness no other new symptoms Review of Systems Review of Systems: all noted and negative except for above Physical Exam Physical Exam: General- oriented x 3, not in distress, speaks in sentences with no effort or accessory muscle use Eyes- anicteric Neck- no JVD Lungs- clear breath sounds bilaterally, no rales/wheezes Heart- normal rate, regular rhythm; no murmurs Abdomen- normal bowel sounds, nondistended, soft, nontender Extremities- no pretibial edema, no calf tenderness Neuro- alert, oriented x 3; no gross focal neurologic deficits Skin- warm & dry Results & Data Results & Data Vital Signs (Past 12 Hours) Vital Signs Temp Pulse Pulse Resp BP BP Pulse Ox 12/01/23 15:02 36.4 C L 70 18 115/55 L 99 12/01/23 11:42 36.4 C L 81 20 187/96 H 100 12/01/23 09:00 76 12/01/23 07:49 36.2 C L 75 17 111/56 L 97 O2 Del Method O2 Flow Rate 12/01/23 15:02 Nasal Cannula 4 03/07/24 11:42 Room Air 4 12/01/23 09:00 12/01/23 07:49 Room Air all noted and reviewed including below
[2023-12-02 06:46] LABS: BUN Creatinine Ratio 12.2 (10-20); Calcium 8.9 mg/dl (8.6-10.3); Creatinine Clr Calc Pharmacy 60.5 ml/min; Est GFR (African American) 52.2 ml/min
[2023-12-02] MEDS ORDERED: BENZOCAINE 20% (ORAJEL) 11.9 GM TUBE MT PRN (19:20)
--- NOTE | 2023-12-02 19:22 | Hospitalist Progress Note ---
Date of Service December 02, 2023 Assessment & Plan (1) Ambulatory dysfunction: Plan: per previous hospitalist notes with addendum: (1) Ambulatory dysfunction: (2) Weakness: (3) Type 2 diabetes, uncontrolled, with neuropathy: (4) Chronic diastolic heart failure: (5) Chronic respiratory failure: (6) CKD (chronic kidney disease), stage III: (7) ELISSA on CPAP: (8) HTN (hypertension): (9) Hypothyroidism: (10) Depression with anxiety: (11) History of pulmonary embolism: (12) Constipation: Plan This is a 68 y/o female with a history of chronic respiratory failure due to probable interstitial lung disease, on chronic O2 at 4 L, ELISSA on CPAP, chronic diastolic heart failure, PVD, HTN, hyperlipidemia, insulin-requiring DM, CKD with baseline creatinine ~1.6, prior DVT/PE, s/p IVC filter placement and on Eliquis, hx HIT, hypothyroidism, fibromyalgia, RLS and depression who presents to the ED today after a fall at home. Work-up in the ED was negative for acute injury, but pt reported severe pain in her knees when she attempted an ambulatory trial in the ED. She feels like she unsafe to return home on her own so she was referred for admission and possible rehab placement. Of note, it appears that she was originally supposed go to [facility] for rehab after her admission in late Sep (d/c on 10/28) but she declined this option as she had no one to take care of her cats. She is willing to consider possible rehab placement 11/24. Course complicated by abdominal/flank pain overnight, hypotension, and encephalopathy on 11/25. CT abd pelvis with right hydronephrosis with UPJ obstruction. Urology consulted and stent placed on 11/25 with return of purulent urine. Suspect likely source of sepsis After stent placement, patient hypotensive and not fluid responsive, transferred to ICU on 11/25 for management of septic shock. On 11/26, patient with central line placement and required brief pressor support which discontinued the morning of 11/27. Patient deemed stable for transfer. Overnight of 11/27, patient with suicidal ideation prompting 1:1 sitter. Psych evaluated and deemed 1:1 support no longer necessary, #Ambulatory dysfunction #Severe left knee osteoarthritis Ongoing bilateral knee pain, h/o R TKA by Dr. Carrillo years ago and following with [facility] for L knee OA with plans for possible future L TKA but process complicated by BMI and other comorbidities. Patient has been losing weight, due to re-evaluate possibility of TKA but interested in second opinion. Routine consult placed for [facility]. - Fall precautions - Pain control prn -Accepted to rehab, bed not available until early next week -Ortho following: will need OP follow up to discuss surgical intervention #Septic shock, likely secondary to acute on chronic UPJ obstruction #Right hydronephrosis s/p stent placement -CT scan with the same chronic findings as prior exams, however given clinical deterioration consulted urology -s/p stent placement 11/24 -notable hypotensive s/p procedure -Discontinue Vanc Zosyn for CTX -Follow cultures: serratia in urine obtained from stent placement -Other infectious work up: knee less suspicious for infectious etiology at this time, likely above urologic source, ortho following -ICU consulted, transferred to ICU on 11/24 -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, 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 at this time -Following infectious work up, cultures with serratia sensitive to CTX will continue at this time -Can discharge with course of cipro v cefdinir Continue Midodrine 5mg TID Await recommendations from Urology for follow up post stent 12/01 continue Ceftriaxone IV, last day tomorrow continue Midodrine #Acute on chronic respiratory failure, multifactorial *back to baseline, #Acute on Chronic heart failure with preserved ejection fraction On 4 L O2 chronically Iatrogenic iso IVF for sepsis Patient now s/p stent placement, after procedure requiring CPAP Needing to push fluid, however, concern for volume overload, will need to likely diurese once sepsis resolves =Iv lasix x 1 as above Resume home dosing as hemodynamics allow 12/01 on 4 L O2 Nephro on board, given IV Lasix resume PO Lasix upon discharge #ELSIE on Chronic stable. Baseline creatinine around 1.6 *improving Avoid nephrotoxic agents iso sepsis Cr up to 2.54 s/p stenting procure, prerenal 2/2 hypotension Consult nephrology 2/2 ELSIE and volume concerns: CTM to trend BMP -Now with signs of volume overload iso resuscitation -IV lasix 40mg x 1 -Consider resuming 60mg BID per nephrology recommendations and hemodynamics 12/01 improved now at 1.0 #Acute toxic metabolic encephalopathy 2/2 infection *improved manage as follows delirium precautions Diet in place Resume home fibromyalgia regimen 3/8 resolved #depression Reported SI overnight, bried 1:1, now clear by Psych continue meds -Resume Gabapentin 600mg TID dosing (downtitrated in ICU) -Resume home trazadone 50mg (home is 100mg) -Medicare waiting list for therapist pending #DMTII Chronic, pt reports sugars have been stable for her since being discharged [facility] #Hypothyroidism Chronic, stable; TSH low, decrease levothyroxine from 250->200meq Continue levothyroxine #Constipation bowel regimen #Prior PE IVC filter, continue eliquis Code Status: Full code DVT Prophylaxis: continue Eliquis, has IVC filter Disposition Still on midodrine at this time, adjusting lasix, will need rehab when clear Plan Pt seen and reviewed with collaborating physician, Dr. Montes. Plan of care discussed and as outlined above. Code Status: Full code DVT Prophylaxis: continue Eliquis, has IVC filter Jaylen Suarez PA-C Admission and Anticipated Discharge Date Admission Date: November 20, 2023 Subjective Follow-up for sepsis, UTI, etc. Resting in bed, comfortable, not in distress States she feels okay overall Weakness improving No abdominal pain No other new symptoms Review of Systems Review of Systems: all noted and negative except for above Physical Exam Physical Exam: General- oriented x 3, not in distress, speaks in sentences with no effort or accessory muscle use Eyes- anicteric Neck- no JVD Lungs- clear BS BL Heart- normal rate, regular rhythm; no murmurs Abdomen- normal bowel sounds, nondistended, soft, nontender Extremities- no pretibial edema, no calf tenderness Neuro- alert, oriented x 3; no gross focal neurologic deficits Skin- warm & dry Results & Data Results & Data Vital Signs (Past 12 Hours) Vital Signs Temp Pulse Pulse Resp BP BP Pulse Ox 12/02/23 17:11 12/02/23 15:37 76 12/02/23 14:58 36.6 C 76 19 141/61 H 100 12/02/23 12:28 12/02/23 11:19 36.7 C 74 18 159/64 H 100 12/02/23 07:26 37.0 C 75 19 120/61 97 O2 Del Method O2 Flow Rate 12/02/23 17:11 Nasal Cannula 4 12/02/23 15:37 12/02/23 14:58 Nasal Cannula 4.0 12/02/23 12:28 Nasal Cannula 4 12/02/23 11:19 Nasal Cannula 4.0 12/02/23 07:26 Nasal Cannula 4.0 all noted and reviewed including below
[2023-12-03 05:22] LABS: BUN Creatinine Ratio 12.4 (10-20); Calcium 8.9 mg/dl (8.6-10.3); Creatinine Clr Calc Pharmacy 61.5 ml/min; Est GFR (African American) 53.2 ml/min; Est GFR (Non-African American) 45.9 ml/min; Potassium 3.8 mmol/L (3.5-5.1)
--- NOTE | 2023-12-03 15:22 | Hospitalist Progress Note ---
Date of Service December 03, 2023 Assessment & Plan (1) Ambulatory dysfunction: Plan: per previous hospitalist notes with addendum: (1) Ambulatory dysfunction: (2) Weakness: (3) Type 2 diabetes, uncontrolled, with neuropathy: (4) Chronic diastolic heart failure: (5) Chronic respiratory failure: (6) CKD (chronic kidney disease), stage III: (7) ELISSA on CPAP: (8) HTN (hypertension): (9) Hypothyroidism: (10) Depression with anxiety: (11) History of pulmonary embolism: (12) Constipation: Plan This is a 68 y/o female with a history of chronic respiratory failure due to probable interstitial lung disease, on chronic O2 at 4 L, ELISSA on CPAP, chronic diastolic heart failure, PVD, HTN, hyperlipidemia, insulin-requiring DM, CKD with baseline creatinine ~1.6, prior DVT/PE, s/p IVC filter placement and on Eliquis, hx HIT, hypothyroidism, fibromyalgia, RLS and depression who presents to the ED today after a fall at home. Work-up in the ED was negative for acute injury, but pt reported severe pain in her knees when she attempted an ambulatory trial in the ED. She feels like she unsafe to return home on her own so she was referred for admission and possible rehab placement. Of note, it appears that she was originally supposed go to [facility] for rehab after her admission in late Sep (d/c on 10/28) but she declined this option as she had no one to take care of her cats. She is willing to consider possible rehab placement 11/24. Course complicated by abdominal/flank pain overnight, hypotension, and encephalopathy on 11/25. CT abd pelvis with right hydronephrosis with UPJ obstruction. Urology consulted and stent placed on 11/25 with return of purulent urine. Suspect likely source of sepsis After stent placement, patient hypotensive and not fluid responsive, transferred to ICU on 11/25 for management of septic shock. On 11/26, patient with central line placement and required brief pressor support which discontinued the morning of 11/27. Patient deemed stable for transfer. Overnight of 11/27, patient with suicidal ideation prompting 1:1 sitter. Psych evaluated and deemed 1:1 support no longer necessary, #Ambulatory dysfunction #Severe left knee osteoarthritis Ongoing bilateral knee pain, h/o R TKA by Dr. Carrillo years ago and following with [facility] for L knee OA with plans for possible future L TKA but process complicated by BMI and other comorbidities. Patient has been losing weight, due to re-evaluate possibility of TKA but interested in second opinion. Routine consult placed for [facility]. - Fall precautions - Pain control prn -Accepted to rehab, bed not available until early next week -Ortho following: will need OP follow up to discuss surgical intervention #Septic shock, likely secondary to acute on chronic UPJ obstruction #Right hydronephrosis s/p stent placement -CT scan with the same chronic findings as prior exams, however given clinical deterioration consulted urology -s/p stent placement 11/24 -notable hypotensive s/p procedure -Discontinue Vanc Zosyn for CTX -Follow cultures: serratia in urine obtained from stent placement -Other infectious work up: knee less suspicious for infectious etiology at this time, likely above urologic source, ortho following -ICU consulted, transferred to ICU on 11/24 -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, 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 at this time -Following infectious work up, cultures with serratia sensitive to CTX will continue at this time -Can discharge with course of cipro v cefdinir Continue Midodrine 5mg TID Await recommendations from Urology for follow up post stent 12/02 last day of Ceftriaxone IV today continue Midodrine- decrease to 2.5mg BID #Acute on chronic respiratory failure, multifactorial *back to baseline, #Acute on Chronic heart failure with preserved ejection fraction On 4 L O2 chronically Iatrogenic iso IVF for sepsis Patient now s/p stent placement, after procedure requiring CPAP Needing to push fluid, however, concern for volume overload, will need to likely diurese once sepsis resolves =Iv lasix x 1 as above Resume home dosing as hemodynamics allow 12/02 on 3 L O2 Nephro on board, given IV Lasix resume PO Lasix upon discharge #ELSIE on Chronic stable. Baseline creatinine around 1.6 *improving Avoid nephrotoxic agents iso sepsis Cr up to 2.54 s/p stenting procure, prerenal 2/2 hypotension Consult nephrology 2/2 ELSIE and volume concerns: CTM to trend BMP -Now with signs of volume overload iso resuscitation -IV lasix 40mg x 1 -Consider resuming 60mg BID per nephrology recommendations and hemodynamics 12/02 improved now at 1.0 #Acute toxic metabolic encephalopathy 2/2 infection *improved manage as follows delirium precautions Diet in place Resume home fibromyalgia regimen 12/02 resolved #depression Reported SI overnight, bried 1:1, now clear by Psych continue meds -Resume Gabapentin 600mg TID dosing (downtitrated in ICU) -Resume home trazadone 50mg (home is 100mg) -Medicare waiting list for therapist pending #DMTII Chronic, pt reports sugars have been stable for her since being discharged [facility] #Hypothyroidism Chronic, stable; TSH low, decrease levothyroxine from 250->200meq Continue levothyroxine #Constipation bowel regimen #Prior PE IVC filter, continue eliquis Code Status: Full code DVT Prophylaxis: continue Eliquis, has IVC filter Disposition transition to SNF on Tuesday Plan Pt seen and reviewed with collaborating physician, Dr. Montes. Plan of care discussed and as outlined above. Code Status: Full code DVT Prophylaxis: continue Eliquis, has IVC filter Jaylen Suarez PA-C Admission and Anticipated Discharge Date Admission Date: November 20, 2023 Subjective Follow-up for UTI, etc. Resting bedside chair, resting, having ice cream On 4 L of oxygen Comfortable, not in distress States she feels improved overall no chest pain, dyspnea, palpitations, dizziness No other new symptom Review of Systems Review of Systems: all noted and negative except for above Physical Exam Physical Exam: General- oriented x 3, not in distress, speaks in sentences with no effort or accessory muscle use Eyes- anicteric Neck- no JVD Lungs- clear breath sounds bilaterally, no rales/wheezes Heart- normal rate, regular rhythm; no murmurs Abdomen- normal bowel sounds, nondistended, soft, nontender Extremities- no pretibial edema, no calf tenderness Neuro- alert, oriented x 3; no gross focal neurologic deficits Skin- warm & dry Results & Data Results & Data Vital Signs (Past 12 Hours) Vital Signs Temp Pulse Resp BP BP Pulse Ox O2 Del Method 12/03/23 11:11 36.4 C L 86 18 154/72 H 100 Nasal Cannula 12/03/23 10:46 Nasal Cannula 12/03/23 07:19 36.5 C 76 18 162/72 H 100 Nasal Cannula O2 Flow Rate 12/03/23 11:11 4 12/03/23 10:46 4 12/03/23 07:19 4 all noted and reviewed including below
[2023-12-04 05:21] LABS: BUN Creatinine Ratio 14.4 (10-20); Calcium 8.8 mg/dl (8.6-10.3); Creatinine Clr Calc Pharmacy 69.7 ml/min; Est GFR (African American) 63.9 ml/min; Est GFR (Non-African American) 55.2 ml/min; Potassium 3.9 mmol/L (3.5-5.1)
--- NOTE | 2023-12-04 13:41 | Pharmacy Report ---
Pharmacy Glycemic Short Note 2 - Date of Service December 04, 2023 - Glycemic Short BSG Results (Last 24 hours): 12/03/23 12/03/23 12/04/23 16:05 20:31 04:32 Glucose 145 H POC Glucose 154 H 137 H 12/04/23 12/04/23 07:53 11:46 Glucose POC Glucose 139 H 175 H OUTPATIENT ANTIDIABETIC REGIMEN: * Tresiba 50 units SQ HS * Novolog 8 units SQ breakfast/lunch, 10 units dinner * tirzepatide 5mg SQ weekly HbA1C: 7.5% (11/20/23) ASSESSMENT: 12/03: * Blood sugars have been stable on current regimen * No changes at current time- monitor lunch BSG 11/30/23: * Blood sugars have been very well-controlled over past 48 hours, ranging 89-131 mg/dL * Will continue glycemic consult, as prior inpatient insulin needs have been much higher than current ones * Will increase basal by 20% today given rising fasting BSG. Continue current Novolog parameters. * ELSIE resolved 11/27/23: * Blood sugars well controlled - reduce basal this AM for BSGs in 90s and NPO. * Diet resumed at Lunch, will put on PRN Lantus dose tonight * Pt improving, downgraded from ICU status Background: * Pt is a 68 year old female known to the glycemic pharmacy service admitted with ambulatory dysfunction. History of DM2. Pharmacy consulted to assist with inpatient glycemic management. * BSGs [phone]/dL since admission. Received 15 units of Lantus last night and no bolus insulin. * Ordered a diet, other stressors stable. * Lantus 15 units again this AM (fasting BSG within goal range and decreased PO yesterday). Will plan for an HS Lantus scale tonight depending on BSG. Novolog moderate stress scale for now. PLAN FOR INPATIENT GLYCEMIC CONTROL: * Basal insulin * Lantus 12 units SC daily * Bolus insulin * NovoLog per scale ACHS or Q6hrs while NPO * Goal Range: Low 110 mg/dL - High 140 mg/dL * Correction Factor: 20 mg/dL/unit * Nutritional / Prandial insulin per carb ratio of 1 unit per 5 grams CHO consumed
--- NOTE | 2023-12-04 14:59 | Hospitalist Progress Note ---
Date of Service December 04, 2023 Assessment & Plan (1) Ambulatory dysfunction: Plan: per previous hospitalist notes with addendum: (1) Ambulatory dysfunction: (2) Weakness: (3) Type 2 diabetes, uncontrolled, with neuropathy: (4) Chronic diastolic heart failure: (5) Chronic respiratory failure: (6) CKD (chronic kidney disease), stage III: (7) ELISSA on CPAP: (8) HTN (hypertension): (9) Hypothyroidism: (10) Depression with anxiety: (11) History of pulmonary embolism: (12) Constipation: Plan This is a 68 y/o female with a history of chronic respiratory failure due to probable interstitial lung disease, on chronic O2 at 4 L, ELISSA on CPAP, chronic diastolic heart failure, PVD, HTN, hyperlipidemia, insulin-requiring DM, CKD with baseline creatinine ~1.6, prior DVT/PE, s/p IVC filter placement and on Eliquis, hx HIT, hypothyroidism, fibromyalgia, RLS and depression who presents to the ED today after a fall at home. Work-up in the ED was negative for acute injury, but pt reported severe pain in her knees when she attempted an ambulatory trial in the ED. She feels like she unsafe to return home on her own so she was referred for admission and possible rehab placement. Of note, it appears that she was originally supposed go to [facility] for rehab after her admission in late Sep (d/c on 10/28) but she declined this option as she had no one to take care of her cats. She is willing to consider possible rehab placement 11/24. Course complicated by abdominal/flank pain overnight, hypotension, and encephalopathy on 11/25. CT abd pelvis with right hydronephrosis with UPJ obstruction. Urology consulted and stent placed on 11/25 with return of purulent urine. Suspect likely source of sepsis After stent placement, patient hypotensive and not fluid responsive, transferred to ICU on 11/25 for management of septic shock. On 11/26, patient with central line placement and required brief pressor support which discontinued the morning of 11/27. Patient deemed stable for transfer. Overnight of 11/27, patient with suicidal ideation prompting 1:1 sitter. Psych evaluated and deemed 1:1 support no longer necessary, #Ambulatory dysfunction #Severe left knee osteoarthritis Ongoing bilateral knee pain, h/o R TKA by Dr. Carrillo years ago and following with [facility] for L knee OA with plans for possible future L TKA but process complicated by BMI and other comorbidities. Patient has been losing weight, due to re-evaluate possibility of TKA but interested in second opinion. Routine consult placed for [facility]. - Fall precautions - Pain control prn -Accepted to rehab, bed not available until early next week -Ortho following: will need OP follow up to discuss surgical intervention 12/03 will need to transition to SNF/Acute Rehab #Septic shock, likely secondary to acute on chronic UPJ obstruction #Right hydronephrosis s/p stent placement -CT scan with the same chronic findings as prior exams, however given clinical deterioration consulted urology -s/p stent placement 11/24 -notable hypotensive s/p procedure -Discontinue Vanc Zosyn for CTX -Follow cultures: serratia in urine obtained from stent placement -Other infectious work up: knee less suspicious for infectious etiology at this time, likely above urologic source, ortho following -ICU consulted, transferred to ICU on 11/24 -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, 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 at 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 time -Following infectious work up, cultures with serratia sensitive to CTX will continue at this time -Can discharge with course of cipro v cefdinir Continue Midodrine 5mg TID Await recommendations from Urology for follow up post stent 12/02 last day of Ceftriaxone IV today continue Midodrine- decrease to 2.5mg BID #Acute on chronic respiratory failure, multifactorial *back to baseline, #Acute on Chronic heart failure with preserved ejection fraction On 4 L O2 chronically Iatrogenic iso IVF for sepsis Patient now s/p stent placement, after procedure requiring CPAP Needing to push fluid, however, concern for volume overload, will need to likely diurese once sepsis resolves =Iv lasix x 1 as above Resume home dosing as hemodynamics allow 12/02 on 3 L O2 Nephro on board, given IV Lasix resume PO Lasix upon discharge #ELSIE on Chronic stable. Baseline creatinine around 1.6 *improving Avoid nephrotoxic agents iso sepsis Cr up to 2.54 s/p stenting procure, prerenal 2/2 hypotension Consult nephrology 2/2 ELSIE and volume concerns: CTM to trend BMP -Now with signs of volume overload iso resuscitation -IV lasix 40mg x 1 -Consider resuming 60mg BID per nephrology recommendations and hemodynamics 12/02 improved now at 1.0 #Acute toxic metabolic encephalopathy 2/2 infection *improved manage as follows delirium precautions Diet in place Resume home fibromyalgia regimen 12/02 resolved #depression Reported SI overnight, bried 1:1, now clear by Psych continue meds -Resume Gabapentin 600mg TID dosing (downtitrated in ICU) -Resume home trazadone 50mg (home is 100mg) -Medicare waiting list for therapist pending #DMTII Chronic, pt reports sugars have been stable for her since being discharged [facility] #Hypothyroidism Chronic, stable; TSH low, decrease levothyroxine from 250->200meq Continue levothyroxine #Constipation bowel regimen #Prior PE IVC filter, continue eliquis Code Status: Full code DVT Prophylaxis: continue Eliquis, has IVC filter Disposition transition to SNF on Tuesday Plan Pt seen and reviewed with collaborating physician, Dr. Montse. Plan of care discussed and as outlined above. Code Status: Full code DVT Prophylaxis: continue Eliquis, has IVC filter Jaylen Suarez PA-C Admission and Anticipated Discharge Date Admission Date: November 20, 2023 Subjective ff up for UTI, etc seen resting in bed, comfortable feels fine overall has L knee pain after walking no chest pain, dyspnea, palpitations, dizziness no other new symptoms Review of Systems Review of Systems: all noted and negative except for above Physical Exam Physical Exam: General- oriented x 3, not in distress, speaks in sentences with no effort or accessory muscle use Eyes- anicteric Neck- no JVD Lungs- clear breath sounds bilaterally, no rales/wheezes Heart- normal rate, regular rhythm; no murmurs Abdomen- normal bowel sounds, nondistended, soft, nontender Extremities- no pretibial edema, no calf tenderness Neuro- alert, oriented x 3; no gross focal neurologic deficits Skin- warm & dry Results & Data Results & Data Vital Signs (Past 12 Hours) Vital Signs Temp Pulse Resp BP BP Pulse Ox O2 Del Method 12/04/23 11:16 Nasal Cannula 12/04/23 11:09 36.6 C 75 18 173/63 H 98 Nasal Cannula 12/04/23 07:08 36.8 C 78 20 152/65 H 96 Nasal Cannula 12/04/23 04:00 36.9 C 75 22 104/65 91 Nasal Cannula O2 Flow Rate 12/04/23 11:16 3 12/04/23 11:09 12/04/23 07:08 3 12/04/23 04:00 3 all noted and reviewed including below
[2023-12-04] MEDS ORDERED: SODIUM CHLORIDE 0.65% NA SOLN 45 ML (OCEAN) PRN (20:33)
[2023-12-04] MEDS: MICONAZOLE NITRATE 2% VAG CR 45 GM TUBE PV SCH (22:26)
[2023-12-04] MEDS: FLUTICASONE PROPIONATE NA SPR 16 GM BTL SCH (22:26)
[2023-12-04] MEDS: OXYMETAZOLINE 0.05% 30 ML BTL STA (22:55)
[2023-12-05 01:02] LABS: Appearance Urine Clear (Clear); Bacteria Urine Automated Negative (Negative); Bilirubin Urine Negative (Negative); Blood Urine 3+ (Negative); Cast Urine Automated 0 /lpf (0-5); Color Urine Yellow; Epithelial Cell Urine Auto 20-30 /lpf (0-5); Glucose Urine UA Negative (Negative); Ketones Urine Negative (Negative); Leukocyte Esterase Urine 1+ (Negative); Nitrite Urine Negative (Negative); Protein Urine Trace (Negative); RBC Urine Automated >30 /hpf (0-4); Specific Gravity Urine 1.009 (1.000-1.030); Urobilinogen Urine Negative (Negative)
[2023-12-05 06:41] LABS: BUN Creatinine Ratio 12.4 (10-20); Creatinine Clr Calc Pharmacy 59.8 ml/min; Est GFR (African American) 53.2 ml/min; Est GFR (Non-African American) 45.9 ml/min; Potassium 4.1 mmol/L (3.5-5.1)
--- NOTE | 2023-12-05 12:40 | Pharmacy Report ---
Pharmacy Glycemic Short Note 2 - Date of Service December 05, 2023 - Glycemic Short BSG Results (Last 24 hours): 12/04/23 12/04/23 12/05/23 16:21 20:42 05:39 Glucose 154 H POC Glucose 128 H 134 H 12/05/23 12/05/23 07:30 11:31 Glucose POC Glucose 176 H 208 H OUTPATIENT ANTIDIABETIC REGIMEN: * Tresiba 50 units SQ HS * Novolog 8 units SQ breakfast/lunch, 10 units dinner * tirzepatide 5mg SQ weekly HbA1C: 7.5% (11/20/23) ASSESSMENT: 12/05/23: * Stephanie received 39 units of insulin yesterday (12 were basal) * Fasting BSGs slightly elevated this AM, has historically needed significantly more basal insulin and takes more outpatient. Will add a basal scale at bedtime based on BSG and attempt to transition basal regimen back to bedtime dosing as she does outpatient. Unclear reason for decreased basal needs, potentially decreased PO intake with NPO status? or insulin accumulation from ELSIE? * Lunchtime BSGs persistently elevated, will tighten carbohydrate ratio to cover 12/04/23: * Blood sugars have been stable on current regimen * No changes at current time- monitor lunch BSG 11/30/23: * Blood sugars have been very well-controlled over past 48 hours, ranging 89-131 mg/dL * Will continue glycemic consult, as prior inpatient insulin needs have been much higher than current ones * Will increase basal by 20% today given rising fasting BSG. Continue current Novolog parameters. * ELSIE resolved 11/27/23: * Blood sugars well controlled - reduce basal this AM for BSGs in 90s and NPO. * Diet resumed at Lunch, will put on PRN Lantus dose tonight * Pt improving, downgraded from ICU status Background: * Pt is a 68 year old female known to the glycemic pharmacy service admitted with ambulatory dysfunction. History of DM2. Pharmacy consulted to assist with inpatient glycemic management. * BSGs [phone]/dL since admission. Received 15 units of Lantus last night and no bolus insulin. * Ordered a diet, other stressors stable. * Lantus 15 units again this AM (fasting BSG within goal range and decreased PO yesterday). Will plan for an HS Lantus scale tonight depending on BSG. Novolog moderate stress scale for now. PLAN FOR INPATIENT GLYCEMIC CONTROL: * Basal insulin * Lantus 12 units SC daily * Bolus insulin * NovoLog per scale ACHS or Q6hrs while NPO * Goal Range: Low 110 mg/dL - High 140 mg/dL * Correction Factor: 20 mg/dL/unit * Nutritional / Prandial insulin per carb ratio of 1 unit per 5 grams CHO consumed
--- NOTE | 2023-12-05 18:55 | Hospitalist Progress Note ---
Date of Service December 05, 2023 Assessment & Plan (1) Ambulatory dysfunction: Plan: (1) Ambulatory dysfunction: Plan: per previous hospitalist notes with addendum: (1) Ambulatory dysfunction: (2) Weakness: (3) Type 2 diabetes, uncontrolled, with neuropathy: (4) Chronic diastolic heart failure: (5) Chronic respiratory failure: (6) CKD (chronic kidney disease), stage III: (7) ELISSA on CPAP: (8) HTN (hypertension): (9) Hypothyroidism: (10) Depression with anxiety: (11) History of pulmonary embolism: (12) Constipation: Plan This is a 68 y/o female with a history of chronic respiratory failure due to probable interstitial lung disease, on chronic O2 at 4 L, ELISSA on CPAP, chronic diastolic heart failure, PVD, HTN, hyperlipidemia, insulin-requiring DM, CKD with baseline creatinine ~1.6, prior DVT/PE, s/p IVC filter placement and on Eliquis, hx HIT, hypothyroidism, fibromyalgia, RLS and depression who presents to the ED today after a fall at home. Work-up in the ED was negative for acute injury, but pt reported severe pain in her knees when she attempted an ambulatory trial in the ED. She feels like she unsafe to return home on her own so she was referred for admission and possible rehab placement. Of note, it appears that she was originally supposed go to [facility] for rehab after her admission in late Sep (d/c on 10/28) but she declined this option as she had no one to take care of her cats. She is willing to consider possible rehab placement 11/24. Course complicated by abdominal/flank pain overnight, hypotension, and encephalopathy on 11/25. CT abd pelvis with right hydronephrosis with UPJ obstruction. Urology consulted and stent placed on 11/25 with return of purulent urine. Suspect likely source of sepsis After stent placement, patient hypotensive and not fluid responsive, transferred to ICU on 11/25 for management of septic shock. On 11/26, patient with central line placement and required brief pressor support which discontinued the morning of 11/27. Patient deemed stable for transfer. Overnight of 11/27, patient with suicidal ideation prompting 1:1 sitter. Psych evaluated and deemed 1:1 support no longer necessary, #Ambulatory dysfunction #Severe left knee osteoarthritis Ongoing bilateral knee pain, h/o R TKA by Dr. Carrillo years ago and following with [facility] for L knee OA with plans for possible future L TKA but process complicated by BMI and other comorbidities. Patient has been losing weight, due to re-evaluate possibility of TKA but interested in second opinion. Routine consult placed for [facility]. - Fall precautions - Pain control prn -Accepted to rehab, bed not available until early next week -Ortho following: will need OP follow up to discuss surgical intervention 12/04 will need to transition to SNF/Acute Rehab #Septic shock, likely secondary to acute on chronic UPJ obstruction #Right hydronephrosis s/p stent placement -CT scan with the same chronic findings as prior exams, however given clinical deterioration consulted urology -s/p stent placement 11/24 -notable hypotensive s/p procedure -Discontinue Vanc Zosyn for CTX -Follow cultures: serratia in urine obtained from stent placement -Other infectious work up: knee less suspicious for infectious etiology at this time, likely above urologic source, ortho following -ICU consulted, transferred to ICU on 11/24 -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, 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 at this time -Following infectious work up, cultures with serratia sensitive to CTX will continue at this time -Can discharge with course of cipro v cefdinir Continue Midodrine 5mg TID Await recommendations from Urology for follow up post stent 12/04 Completed IV ceftriaxone course Midodrine discontinued as BP stable #Acute on chronic respiratory failure, multifactorial *back to baseline, #Acute on Chronic heart failure with preserved ejection fraction On 4 L O2 chronically Iatrogenic iso IVF for sepsis Patient now s/p stent placement, after procedure requiring CPAP Needing to push fluid, however, concern for volume overload, will need to likely diurese once sepsis resolves =Iv lasix x 1 as above Resume home dosing as hemodynamics allow 12/04 on 3 L O2 Nephro on board, given IV Lasix resume PO Lasix tomorrow #ELSIE on Chronic stable. Baseline creatinine around 1.6 *improving Avoid nephrotoxic agents iso sepsis Cr up to 2.54 s/p stenting procure, prerenal 2/2 hypotension Consult nephrology 2/2 ELSIE and volume concerns: CTM to trend BMP -Now with signs of volume overload iso resuscitation -IV lasix 40mg x 1 -Consider resuming 60mg BID per nephrology recommendations and hemodynamics 12/04 improved now at 1.0 #Acute toxic metabolic encephalopathy 2/2 infection *improved manage as follows delirium precautions Diet in place Resume home fibromyalgia regimen 12/04 resolved #depression Reported SI overnight, bried 1:1, now clear by Psych continue meds -Resume Gabapentin 600mg TID dosing (downtitrated in ICU) -Resume home trazadone 50mg (home is 100mg) -Medicare waiting list for therapist pending #DMTII Chronic, pt reports sugars have been stable for her since being discharged [facility] #Hypothyroidism Chronic, stable; TSH low, decrease levothyroxine from 250->200meq Continue levothyroxine #Constipation bowel regimen #Prior PE IVC filter, continue eliquis Code Status: Full code DVT Prophylaxis: continue Eliquis, has IVC filter Disposition transition to SNF on Tuesday Plan Pt seen and reviewed with collaborating physician, Dr. Montes. Plan of care discussed and as outlined above. Code Status: Full code DVT Prophylaxis: continue Eliquis, has IVC filter (2) Weakness: Plan: Suspect multifactorial including complex medical history, polypharmacy, recent hospitalization/deconditioning. See plan for #1 (3) Type 2 diabetes, uncontrolled, with neuropathy: Plan: Chronic, pt reports sugars have been stable for her since being discharged (4) Chronic diastolic heart failure: Plan: Chronic, stable Continue furosemide (5) Chronic respiratory failure: Plan: On 4 L O2 chronically (6) CKD (chronic kidney disease), stage III: Plan: Chronic, stable. Baseline creatinine around 1.6 (7) ELISSA on CPAP: Plan: Chronic - has had difficulty using CPAP recently due to epistaxis but willing to try using while here (8) HTN (hypertension): Plan: Chronic, stable (9) Hypothyroidism: Plan: Chronic, stable Continue levothyroxine (10) Depression with anxiety: Plan: Anxious and tearful today about her fall and inability to walk Continue outpatient meds (11) History of pulmonary embolism: Plan: Has IVC filter in place Continue Eliquis Plan Pt seen and reviewed with collaborating physician, Dr. Montes. Plan of care discussed and as outlined above. Code Status: Full code DVT Prophylaxis: continue Eliquis, has IVC filter Admission and Anticipated Discharge Date Admission Date: November 20, 2023 Subjective Follow-up for sepsis, UTI, etc. Seen resting in chair, comfortable, not in distress States she feels fine overall Knee feels better today no chest pain, dyspnea, palpitations, dizziness No other new symptoms Review of Systems Review of Systems: all noted and negative except for above Physical Exam Physical Exam: General- oriented x 3, not in distress, speaks in sentences with no effort or accessory muscle use Eyes- anicteric Neck- no JVD Lungs- clear breath sounds bilaterally, no rales/wheezes Heart- normal rate, regular rhythm; no murmurs Abdomen- normal bowel sounds, nondistended, soft, nontender Extremities- no pretibial edema, no calf tenderness Neuro- alert, oriented x 3; no gross focal neurologic deficits Skin- warm & dry Results & Data Results & Data Vital Signs (Past 12 Hours) Vital Signs Temp Pulse Resp BP BP Pulse Ox O2 Del Method 12/05/23 16:43 36.7 C 82 20 130/66 98 Nasal Cannula 12/05/23 11:00 36.9 C 74 18 162/61 H 135/70 97 Nasal Cannula 12/05/23 08:00 Nasal Cannula 12/05/23 07:19 36.8 C 88 18 144/59 H 96 Nasal Cannula O2 Flow Rate 12/05/23 16:43 3 12/05/23 11:00 3 12/05/23 08:00 3 12/05/23 07:19 3 all noted and reviewed including below (5) Chronic respiratory failure Respiratory failure complication: hypoxia Qualified Code(s): J96.11 - Chronic respiratory failure with hypoxia (6) CKD (chronic kidney disease), stage III Chronic kidney disease stage 3 subtype: unspecified whether 3a or 3b Qualified Code(s): N18.30 - Chronic kidney disease, stage 3 unspecified (8) HTN (hypertension) Hypertension type: primary hypertension Qualified Code(s): I10 - Essential (primary) hypertension (9) Hypothyroidism Hypothyroidism type: unspecified Qualified Code(s): E03.9 - Hypothyroidism, unspecified
[2023-12-05] MEDS: LANTUS PER UNIT CHARGE SC SCH (20:59)
[2023-12-06 07:07] LABS: BUN Creatinine Ratio 13.6 (10-20); Creatinine Clr Calc Pharmacy 61.4 ml/min; Est GFR (African American) 54.9 ml/min; Est GFR (Non-African American) 47.4 ml/min; Potassium 4.2 mmol/L (3.5-5.1)
[2023-12-06] MEDS: LOPERAMIDE HCL 2 MG CAP PO STA (12:53)
[2023-12-06] MEDS: LOPERAMIDE HCL 2 MG CAP PO PRN (14:38)
--- NOTE | 2023-12-06 19:04 | Hospitalist Progress Note ---
Date of Service December 06, 2023 Assessment & Plan (1) Ambulatory dysfunction: Plan: (1) Ambulatory dysfunction: Plan: per previous hospitalist notes with addendum: (1) Ambulatory dysfunction: (2) Weakness: (3) Type 2 diabetes, uncontrolled, with neuropathy: (4) Chronic diastolic heart failure: (5) Chronic respiratory failure: (6) CKD (chronic kidney disease), stage III: (7) ELISSA on CPAP: (8) HTN (hypertension): (9) Hypothyroidism: (10) Depression with anxiety: (11) History of pulmonary embolism: (12) Constipation: Plan This is a 68 y/o female with a history of chronic respiratory failure due to probable interstitial lung disease, on chronic O2 at 4 L, ELISSA on CPAP, chronic diastolic heart failure, PVD, HTN, hyperlipidemia, insulin-requiring DM, CKD with baseline creatinine ~1.6, prior DVT/PE, s/p IVC filter placement and on Eliquis, hx HIT, hypothyroidism, fibromyalgia, RLS and depression who presents to the ED today after a fall at home. Work-up in the ED was negative for acute injury, but pt reported severe pain in her knees when she attempted an ambulatory trial in the ED. She feels like she unsafe to return home on her own so she was referred for admission and possible rehab placement #Ambulatory dysfunction #Severe left knee osteoarthritis Ongoing bilateral knee pain, h/o R TKA by Dr. Carrillo years ago and following with [facility] ortho for L knee OA with plans for possible future L TKA but process complicated by BMI and other comorbidities. Patient has been losing weight, due to re-evaluate possibility of TKA but interested in second opinion. Routine consult placed for [facility]. - Fall precautions - Pain control prn -Accepted to rehab, bed not available until early next week -Ortho following: will need OP follow up to discuss surgical intervention 12/05 will need to transition to SNF/Acute Rehab #Septic shock, likely secondary to acute on chronic UPJ obstruction #Right hydronephrosis s/p stent placement -CT scan with the same chronic findings as prior exams, however given clinical deterioration consulted urology -s/p stent placement 11/24 -notable hypotensive s/p procedure -Discontinue Vanc Zosyn for CTX -Follow cultures: serratia in urine obtained from stent placement -Other infectious work up: knee less suspicious for infectious etiology at this time, likely above urologic source, ortho following -ICU consulted, transferred to ICU on 11/24 -Pressor 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 inspector, 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 at this time -Following infectious work up, cultures with serratia sensitive to CTX will continue at this time -Can discharge with course of cipro v cefdinir Continue Midodrine 5mg TID Await recommendations from Urology for follow up post stent 12/05 Completed IV ceftriaxone course Midodrine discontinued as BP stable #Acute on chronic respiratory failure, multifactorial *back to baseline, #Acute on Chronic heart failure with preserved ejection fraction On 4 L O2 chronically Iatrogenic iso IVF for sepsis Patient now s/p stent placement, after procedure requiring CPAP Needing to push fluid, however, concern for volume overload, will need to likely diurese once sepsis resolves =Iv lasix x 1 as above Resume home dosing as hemodynamics allow 12/05 on 3 L O2-baseline Nephro on board, given IV Lasix resume PO Lasix #ELSIE on Chronic stable. Baseline creatinine around 1.6 *improving Avoid nephrotoxic agents iso sepsis Cr up to 2.54 s/p stenting procure, prerenal 2/2 hypotension Consult nephrology 2/2 ELSIE and volume concerns: CTM to trend BMP -Now with signs of volume overload iso resuscitation -IV lasix 40mg x 1 -Consider resuming 60mg BID per nephrology recommendations and hemodynamics 12/05 improved now at 1.0 Monitor closely as an outpatient #Acute toxic metabolic encephalopathy 2/2 infection *improved manage as follows delirium precautions Diet in place Resume home fibromyalgia regimen 12/05 resolved #depression Reported SI overnight, bried 1:1, now clear by Psych continue meds -Resume Gabapentin 600mg TID dosing (downtitrated in ICU) -Resume home trazadone 50mg (home is 100mg) -Medicare waiting list for therapist pending Buttock cleft skin irritation Protective cream applied Wound care consulted #DMTII Chronic, pt reports sugars have been stable for her since being discharged [facility] #Hypothyroidism Chronic, stable; TSH low, decrease levothyroxine from 250->200meq Continue levothyroxine #Constipation bowel regimen #Prior PE IVC filter, continue eliquis Code Status: Full code DVT Prophylaxis: continue Eliquis, has IVC filter Disposition Anticipate transition to SNF tomorrow as per case management Plan Code Status: Full code DVT Prophylaxis: continue Eliquis, has IVC filter (2) Weakness: Plan: Suspect multifactorial including complex medical history, polypharmacy, recent hospitalization/deconditioning. See plan for #1 (3) Type 2 diabetes, uncontrolled, with neuropathy: Plan: Chronic, pt reports sugars have been stable for her since being discharged (4) Chronic diastolic heart failure: Plan: Chronic, stable Continue furosemide (5) Chronic respiratory failure: Plan: On 4 L O2 chronically (6) CKD (chronic kidney disease), stage III: Plan: Chronic, stable. Baseline creatinine around 1.6 (7) ELISSA on CPAP: Plan: Chronic - has had difficulty using CPAP recently due to epistaxis but willing to try using while here (8) HTN (hypertension): Plan: Chronic, stable (9) Hypothyroidism: Plan: Chronic, stable Continue levothyroxine (10) Depression with anxiety: Plan: Anxious and tearful today about her fall and inability to walk Continue outpatient meds (11) History of pulmonary embolism: Plan: Has IVC filter in place Continue Prince Plan Pt seen and reviewed with collaborating physician, Dr. Montes. Plan of care discussed and as outlined above. Code Status: Full code DVT Prophylaxis: continue vito Morrison IVC filter Admission and Anticipated Discharge Date Admission Date: November 20, 2023 Subjective Follow-up for UTI, etc. Seen resting in bed, comfortable, not in distress States she feels fine overall Reports some discomfort around the superior buttock cleft area no chest pain, dyspnea, palpitations, dizziness No other symptoms Review of Systems Review of Systems: all noted and negative except for above Physical Exam Physical Exam: General- oriented x 3, not in distress, speaks in sentences with no effort or accessory muscle use Eyes- anicteric Neck- no JVD Lungs- clear breath sounds bilaterally, no crackles or wheezes Heart- normal rate, regular rhythm; no murmurs Abdomen- normal bowel sounds, nondistended, soft, no tenderness Extremities- no pretibial edema, no calf tenderness Buttock-very mild erythema on the superior part of the cleft Neuro- alert, oriented x 3; no gross focal neurologic deficits Skin- warm & dry Results & Data Results & Data Vital Signs (Past 12 Hours) Vital Signs Temp Pulse Pulse Resp BP BP Pulse Ox 12/06/23 15:03 36.7 C 84 18 114/70 114/70 96 03/12/24 11:05 36.7 C 77 18 134/79 95 12/06/23 08:00 12/06/23 07:24 36.7 C 83 18 129/75 96 O2 Del Method O2 Flow Rate 12/06/23 15:03 Room Air 3 12/06/23 11:05 Nasal Cannula 3 12/06/23 08:00 Nasal Cannula 3 12/06/23 07:24 Nasal Cannula 3 all noted and reviewed including below (5) Chronic respiratory failure Respiratory failure complication: hypoxia Qualified Code(s): J96.11 - Chronic respiratory failure with hypoxia (6) CKD (chronic kidney disease), stage III Chronic kidney disease stage 3 subtype: unspecified whether 3a or 3b Qualified Code(s): N18.30 - Chronic kidney disease, stage 3 unspecified (8) HTN (hypertension) Hypertension type: primary hypertension Qualified Code(s): I10 - Essential (primary) hypertension (9) Hypothyroidism Hypothyroidism type: unspecified Qualified Code(s): E03.9 - Hypothyroidism, unspecified
[2023-12-07] MEDS: POTASSIUM CHLORIDE CRTAB 20 MEQ TABCR PO SCH (09:31)
[2023-12-07] MEDS: FUROSEMIDE 40 MG TAB PO SCH (09:31)
--- NOTE | 2023-12-07 11:16 | Discharge Summary ---
Discharge Summary Date of Service December 07, 2023 Notes For Next Care Provider Medication Changes From Visit Reduced levothyroxine 250-->200mcg Reduced Trazodone 100mg-->50mg Resumed all home medications upon discharge Completed course of IV CTX Admission HPI Per Admitting Provider This is a 68 y/o female with a history of chronic respiratory failure due to probable interstitial lung disease, on chronic O2 at 4 L, ELISSA on CPAP, chronic diastolic heart failure, PVD, HTN, hyperlipidemia, insulin-requiring DM, CKD with baseline creatinine ~1.6, prior DVT/PE, s/p IVC filter placement and on Eliquis, hx HIT, hypothyroidism, fibromyalgia, RLS and depression who presents to the ED today after a fall at home. Pt reports that she was going to feed her cats when her legs gave out on her and she fell, landing directly on both knees. She is being followed with home PT, who she reports last saw her two days ago (on Tuesday), and she had been doing well and improving. However, over the last two days, she has noted increasing LE weakness of unclear etiology. She reports significant pain in her bilateral knees with weightbearing and does not feel that she is safe to return home so we were consulted to admit pt for PT/OT evaluations and possible rehab placement. This morning when she fell, she denies any syncopal event, chest pain, palpitations, shortness of breath, fevers, c hills. Pt was recently admitted to this facility 10/24/23-10/28/23 due to weakness that was thought to be multifactorial and ongoing diarrhea that was found to be secondary to C. diff colitis. Pt was originally supposed to go [facility] at discharge for rehab, which was strongly recommended, but she noted that she has no one to care for her two cats so she opted go to home with home health service s instead. Pt reports that she had been doing well since discharge until the last two days when developed LE weakness. Her sugars have been stable with only one "low" blood glucose of around 90. The diarrhea has resolved with treatment of the C. diff though she notes that her BMs remain somewhat sporadic. Denies recent illness. Has had trouble tolerating the CPAP recently due to intermittent epistaxis. Current O2 demand is 4L, which she was on at discharge. She was recently started on iron supplement by her PCP office. Principal Dx & Hospital Course #1 = Principal Diagnosis (1) Ambulatory dysfunction: (2) Weakness: (3) Type 2 diabetes, uncontrolled, with neuropathy: (4) Chronic diastolic heart failure: (5) Chronic respiratory failure: (6) CKD (chronic kidney disease), stage III: (7) ELISSA on CPAP: (8) HTN (hypertension): Chronic, stable (9) Hypothyroidism: (10) Depression with anxiety: (11) History of pulmonary embolism: Plan Ms. Camp 68 y/o female with a history of chronic respiratory failure due to probable interstitial lung disease, on chronic O2 at 4 L, ELISSA on CPAP, chronic diastolic heart failure, PVD, HTN, hyperlipidemia, insulin-requiring DM, CKD with baseline creatinine ~1.6, prior DVT/PE, s/p IVC filter placement and on Eliquis, hx HIT, hypothyroidism, fibromyalgia, RLS and depression who presents to the ED today after a fall at home. Work-up in the ED was negative for acute injury, but pt reported severe pain in her knees when she attempted an ambulatory trial in the ED. She feels like she unsafe to return home on her own so she was referred for admission and possible rehab placement. Course complicated by abdominal/flank pain overnight, hypotension, and encephalopathy on 11/25. CT abd pelvis with right hydronephrosis with UPJ obstruction. Urology consulted and stent placed on 11/25 with return of purulent urine. Suspect likely source of sepsis After stent placement, patient hypotensive and not fluid responsive, transferred to ICU on 11/25 for management of septic shock. On 11/26, patient with central line placement and required brief pressor support which discontinued the morning of 11/27. Patient deemed stable for transfer. Overnight of 11/27, patient with suicidal ideation prompting 1:1 sitter. Psych evaluated and deemed 1:1 support no longer necessary. Patient completed IV antibiotics and home regimen reinstated. Patient required course of IV diuersis given acute on chronic heart failure due to volume from sepsis experienced earlier in the admission. On day of discharge, patient was feeling well, on 2L oxygen at bedside, eating well, and denied any acute concerns. #Ambulatory dysfunction #Severe left knee osteoarthritis Ongoing bilateral knee pain, h/o R TKA by Dr. Carrillo years ago and following with [facility] for L knee OA with plans for possible future L TKA but process complicated by BMI and other comorbidities. Patient has been losing weight, due to re-evaluate possibility of TKA but interested in second opinion. Routine c onsult placed for [facility] ortho. - Fall precautions - Pain control prn -Accepted to rehab, bed not available until early next week -Ortho following: follow up with OP ortho Discharge to rehab #Septic shock, likely secondary to acute on chronic UPJ obstruction #Right hydronephrosis s/p stent placement -CT scan with the same chronic findings as prior exams, however given clinical deterioration consulted urology -s/p stent placement 11/24 -notable hypotensive s/p procedure -Discontinue Vanc Zosyn for CTX -Follow cultures: serratia in urine obtained from stent placement -Other infectious work up: knee less suspicious for infectious etiology at this time, likely above urologic source, ortho following -ICU consulted, transferred to ICU on 11/24 -Pressor discontinued stone grader, 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 at this time -Following infectious work up, cultures with serratia sensitive to CTX will continue at this time, completed CTX course inpatient Discontinued Midodrine 5mg TID Follow up 1-2 weeks post dischage with urology for stent management #Acute on chronic respiratory failure, multifactorial *back to baseline, #Acute on Chronic heart failure with preserved ejection fraction On 4 L O2 chronically Iatrogenic iso IVF for sepsis Patient now s/p stent placement, after procedure requiring CPAP Needing to push fluid, however, concern for volume overload, will need to likely diurese once sepsis resolves Resume home Lasix #ELSIE on CKD Resolved stable. Baseline creatinine around 1.6 *improving Avoid nephrotoxic agents iso sepsis Cr up to 2.54 s/p stenting procure, prerenal 2/2 hypotension Consult nephrology 2/2 ELSIE and volume concerns: CTM to trend BMP -Now with signs of volume overload iso resuscitation -IV lasix 40mg x 1 Resume home 60mg BID per nephrology recommendations and hemodynamics #Acute toxic metabolic encephalopathy 2/2 infection *resolved manage as follows delirium precautions Diet in place Resume home fibromyalgia regimen #depression Reported SI overnight, bried 1:1, now clear by Psych continue meds -Resume Gabapentin 600mg TID dosing -Decrease home trazadone to 50mg -Medicare waiting list for therapist pending #Buttock cleft skin irritation Protective cream applied Wound care consulted #DMTII Chronic, pt reports sugars have been stable for her since being discharged SSI #Hypothyroidism Chronic, stable; TSH low, decrease levothyroxine from 250->200meq Continue levothyroxine #Constipation bowel regimen #Prior PE IVC filter, continue eliquis Discharge to rehab Discharge Exam Constitutional WD/WN, vitals as above Respiratory normal respiratory effort, lungs clear to auscultation 2L NC Cardiovascular RRR, no murmur, no edema Updated Medication List Medication Instructions Recorded Confirmed Type aspirin 81 mg tablet,delayed 81 mg PO DAILY 09/20/23 11/20/23 History release atorvastatin 20 mg tablet 20 mg PO DAILY 09/20/23 11/20/23 History baclofen 10 mg tablet 10 mg PO BID PRN Muscle Spasm 09/20/23 11/20/23 History clonazepam 0.5 mg tablet 0.5 mg PO BID 09/20/23 11/20/23 History clopidogrel 75 mg tablet 75 mg PO DAILY 09/20/23 11/20/23 History duloxetine 60 mg capsule,delayed See Rx Instructions .Route .COMPLEX 09/20/23 11/20/23 History release furosemide 40 mg tablet 60 mg PO BID 09/20/23 11/20/23 History gabapentin 300 mg capsule 600 mg PO TID 09/20/23 11/20/23 History insulin aspart U-100 100 unit/mL 8 unit subcut UD 09/20/23 11/20/23 History (3 mL) subcutaneous pen (Novolog FlexPen U-100 Insulin aspart) insulin degludec 100 unit/mL (3 50 unit subcut HS 09/20/23 11/20/23 History mL) subcutaneous pen (Tresiba FlexTouch U-100 insulin) magnesium oxide 400 mg (241.3 mg 400 mg PO BID 09/20/23 11/20/23 History magnesium) tablet omeprazole 20 mg capsule,delayed 20 mg PO DAILY 09/20/23 11/20/23 History release oxycodone 5 mg tablet 5 mg PO Q6H PRN Pain 09/20/23 11/20/23 History potassium chloride 20 mEq 20 meq PO BID 09/20/23 11/20/23 History tablet,extended release(part/cryst) ropinirole 2 mg tablet 2 mg PO HS 09/20/23 11/20/23 History sennosides 8.6 mg-docusate sodium 1 tab PO BID 09/20/23 11/20/23 History 50 mg tablet (Senna-Time S) tirzepatide 5 mg/0.5 mL 5 mg subcut WK 09/20/23 11/20/23 History subcutaneous pen injector (Mounjaro) tramadol 50 mg tablet 50 mg PO TID PRN Pain 09/20/23 11/20/23 History Vit D3 1000iu 200+50 Softge 1 tab PO QAM 10/24/23 11/20/23 History apixaban 2.5 mg tablet (Eliquis) 2.5 mg PO BID 10/24/23 11/20/23 History dicyclomine 20 mg tablet 20 mg PO QID PRN abdominal cramping 10/24/23 11/20/23 History duloxetine 30 mg capsule,delayed See Rx Instructions .Route .COMPLEX 10/24/23 11/20/23 History release triamcinolone acetonide 0.5 % 1 applic topical BID PRN chest rash 10/24/23 11/20/23 History topical cream levothyroxine 200 mcg tablet 200 mcg PO DAILYBB #30 tabs 12/07/23 11/20/23 Rx trazodone 100 mg tablet 50 mg (1/2 x 100 mg) PO HS #30 tabs 12/07/23 11/20/23 Rx Hospital Stay Data Consultations 11/20/23 12:25 ED Decision to Admit Stat 11/20/23 12:53 ED Decision to Admit Stat 11/24/23 16:05 Consult Orthopedic Surgery Routine 11/25/23 17:25 Consult Hot Water Heater Installer Stat 11/26/23 07:01 Consult Nephrology Routine 12/03/23 07:17 Consult Behavioral Health Liaison Routine Procedures Performed Operation Date: 11/25/23 11:45 Actual Procedures p Cystoscopy, Retrograde Pyelogram, Right Ureteral Stent Placement(Right) - Al Arriaga MD Diagnostic Imagining Performed 11/20/23 09:10 CT head/brain wo con Stat 11/21/23 01:14 CT head/brain wo con Stat 11/24/23 21:45 CT Abd and Pelvis [CT abd pelvis wo con] Stat 11/25/23 FL retrograde includes kub Routine 11/25/23 07:38 US venous doppler LE RT Routine Pending Results Patient Have Any Pending Studies at Discharge: No Discharge Instructions Given to Patient (Per Discharging Provider) You were initially admitted for fall at home and noted to have severe osteoarthritis in left knee. Your course was prolonged due to infection of right kidney, which required stent to be placed and help drain infection by Urology team. You completed your course of antibiotics while admitted. You will need close follow up with Urology to discuss next steps for stent. You will need to follow up with your PCP and ortho providers. No new medications were added. Medication Changes: Reduced levothyroxine 250meq to 200meq daily Reduce trazodone 50mg Please resume all other home medications as previously prescribed. Total Time Total Time Spent Total Time Spent (In Minutes): 45
== END 2023-12-07 11:45 | DRG 987 ==
LOC: ED 08:53 → 3E 13:09 → SUATTDRO 13:09 → 3E 15:21 → 4W 11-25 02:43 → 1E 11-25 18:01 → 4W 11-28 06:39

== ENCOUNTER 2024-01-16 05:05 | Inpatient (IN) ==
--- OUTSIDE RECORDS SUMMARY | 2024-01-16 05:12 | External Medical Summary | Summary of Care ---
Author Name Unknown Organization [facility] Address [address] [place] [address] Phone [phone] Care Team Providers Care French Binding Folder Name Role Phone Galdino Andujar DO Primary Care Provider [phone] Encounter Details Date Type Department Care Team (Late st Contact Info) Description 11/26/2023 Result Scan Unspecified Department <No scans attached> Allergies Active Allergy Reactions Criticality Noted Date [...] as of this encounter (statuses as of 01/12/2024) Medications Medication Sig Dispensed Refills Start Date [...] goal of 7.0%-8.0% ([facility]) Inject 8 units with breakfast and 8units lunch and 10 units with dinner + sliding scale 1 units for every 25 units BG > 150. 150 mL 3 05/16/2023 Active OneTouch Verio In Vitro Strip (Glucose Blood)Indications:Hy poglycemia,Type 2 diabetes mellitus with stage 3b chronic kidney disease, with long-term current use of insulin ([facility]) Use up to 4 times a day E11.9 in case of dexcom failure 100 Strip 11 05/31/2023 Active Dexcom G7 Sensor Use as directed. (From [facility]) 0 06/01/2023 Active Levothyroxine Sodium 200 MCG Oral Tablet (Levoxyl)Indications :Postsurgical hypothyroidism TAKE 1 TABLET BY MOUTH ONCE DAILY IN THE MORNING 30 Tablet 5 06/16/2023 Active Magnesium Oxide 400 MG Oral TabletIndications:Be nign hypertensive heart and kidney disease with diastolic CHF, NYHA class 1 and CKD stage 3 ([facility]),Chronic diastolic congestive heart failure (HCC) TAKE 1 TABLET BY MOUTH IN THE MORNING AND AT BEDTIME 60 Tablet 5 07/12/2023 Active Gabapentin 300 MG Oral Capsule (Neurontin)Indicatio ns:Fibromyalgia TAKE 2 CAPSULES BY MOUTH IN THE MORNING, NOON AND BEDTIME] 168 Capsule 5 07/12/2023 Active Mounjaro 5 MG/0.5ML Subcutaneous Solution Pen-injector (Tirzepatide) Inject 5 mg under the skin once a week. 2 mL 11 07/14/2023 Active Additional Information Patient taking differently:5 mg [...] A1c goal of 7.0%-8.0% ([facility]) INJECT 50 UNITS UNDER THE [...] AT BEDTIME 60 Tablet 5 08/15/2023 Active rOPINIRole HCl 2 MG Oral Tablet (Requip)Indications: Restless legs syndrome Take 1 Tablet by mouth at bedtime. 30 Tablet 5 08/20/2023 Active Potassium Chloride Ayleen ER 20 MEQ Oral Tablet Extended ReleaseIndications: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, NYHA class 1 and CKD stage 3 ([facility]),Chronic diastolic congestive heart failure (HCC) TAKE 1 TABLET BY MOUTH IN THE MORNING AND AT BEDTIME 60 Tablet 5 09/12/2023 Active DULoxetine HCl 60 MG Oral Capsule Delayed Release Particles (Cymbalta)Indication s:Fibromyalgia,Major depressive disorder, recurrent, moderate (HCC) TAKE 1 CAPSULE BY MOUTH ONCE DAILY IN THE MORNING 30 Capsule 5 09/12/2023 Active Triamcinolone Acetonide 0.5 % External Cream (Aristocort)Indicati ons:Dermatitis Apply topically to affected area 2 times a day. Chest rash 60 g 0 10/04/2023 Active Apixaban 2.5 MG Oral Tablet (Eliquis) Take 1 Tablet by mouth in the morning and 1 Tablet before bedtime. 60 Tablet 11 10/04/2023 Active Furosemide 40 MG Oral Tablet (Lasix)Indications:C hronic diastolic congestive heart failure (HCC) TAKE 1 AND 1/2 TABLETS BY MOUTH IN THE MORNING AND AT BEDTIME 84 Tablet 5 10/10/2023 Active DULoxetine HCl 30 MG Oral Capsule Delayed Release Particles (Cymbalta)Indication s:Fibromyalgia,Major depressive disorder, recurrent, moderate (HCC) TAKE 1 CAPSULE BY MOUTH ONCE DAILY IN THE MORNING 30 Capsule 5 10/10/2023 Active Ferrous Sulfate 325 (65 Fe) MG Oral Tablet (Feosol)Indications: Anemia Take 1 Tablet by mouth in the morning and 1 Tablet before bedtime. 0 10/14/2023 Active Dicyclomine HCl 20 MG Oral Tablet (Bentyl)Indications: Irritable bowel syndrome, unspecified type Take 1 Tablet by mouth 4 times a day as needed for Cramping. 180 Tablet 3 10/20/2023 Active traMADol HCl 50 MG Oral Tablet (Ultram)Indications: Lumbar radiculopathy,Primar y osteoarthritis of left knee Take 1 Tablet by mouth every 8 hours as needed for Pain, Severe. 90 Tablet 0 11/20/2023 Active documented as of this encounter (statuses as of 01/12/2024) Active Problems Problem Noted Date Diagnosed Date Hydronephrosis of right kidney 12/22/2023 Iron deficiency 10/20/2023 Morbid (severe) obesity due to excess calories 0 10/04/2023 Body mass index (BMI) of 45.0 to 49.9 in adult 1 10/08/2022 Overview: Per Obesity protocol - Per Obesity Taxonomy ICD-10 update of inactive term DM peripheral angiopathy 07/13/2023 Last Assessment & Plan: Now followed by vascular, reports upcoming carotid surgery at [facility]. She states she has rx for atorvastatin and plavix to curing pickling packer at pharmacy. 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 Atherosclerosis of [place] co ronary artery without angina pectoris 12/31/2021 [...] rx evidently given by vascular, has to curing pickling packer rx documented as of this encounter (statuses as of 01/12/2024) Resolved Problems Problem Noted Date Diagnosed Date [...] as of this encounter (statuses as of 01/12/2024) Immunizations Name Administration Dates Next Due COVID-19 mRNA, LNP-s, No Pre serve, 2-Dose Series (ByteActive) 01/08/2021,12/18/2020 COVID-19, LNP-s, No Preserve , Navarro-sucrose, Ages 12+ (Pfizer) 2022,10/01/2021 COVID-19, MRNA-LNP, 23-24, P F, 30 MCG/0.3 mL, 12 YRS AND ABOVE, IM (PFIZER-Comirnaty) 07/26/2023 Pneumococcal Conjugate Vacci ne, 20-valent ([id number]) 03/12/2022 Pneumococcal Polysaccharide PPV23 (Pneumovax) 08/22/2009,06/15/2006 Season [...] Care Team (Late st Contact Info) Description 01/19/2024 8:30 AM EDT Office Visit Family Practice [address] [facility] [address] [facility] [place] [address] College, Pharmacist [address] [place] [address] 01/19/2024 9:00 AM EDT Office Visit Family Practice [address] [facility] [address] [facility] [place] [address] Galdino Andujar, [address] [place] [address] 02/14/2024 1:00 PM EDT Nurse Only Ancillary [address] [facility] [address] [facility] [place] [address] College, Nurse Annual Wellness Visit [address] [place] [address] 07/17/2024 1:30 PM EDT Office Visit Cardiology, [facility] [address] [facility] [place] [address] Marjorie Powell PA-C [address] [facility] [place] [id number] 09/12/2024 11:00 AM EST Office Visit Nephrology, Gregorio Champion [address] [facility] [place] [address] Erik Lenz MD [address] [facility] [place] [address] Scheduled Procedures Name Priority Associated Diagnoses Date/Ti me COLONOSCOPY FLEXIBLE PROXIMAL DIAGNOSTIC Recall Colon cancer screening Health Maintenance Due Date Last Done Comments Cologuard 2000 Fecal Occult Blood Test 2000 Sigmoidoscopy 2000 Mammogram 04/21/2024 04/21/2023, 01/24, 10/01/2020, Additional history exists Diabetic Eye Exam 05/09/2024 05/09/2023, , 05/24/2022, Additional history exists HbA1c 06/23/2024 12/22/2023, 08/27, 07/25/2023, Additional history exists GFR 06/27/2024 12/27/2023, 11/25, 11/07/2023, Additional history exists Albumin/Creatinine Ratio 08/05/2024 023, 11/01/2022, 01/07/2022, Additional history exists Diabetic Foot Exam 10/04/2024 10/04/2023, 0 11/01/2022, 01/07/2022, Additional history exists CKD HGB USE SMARTSET 90390 12/21/202412/21, 12/22/2023, 11/07/2023, Additional history exists TSH 12/21/2024 12/22/2023, 09/26, 11/01/2022, Additional history exists CKD PHOS USE SMARTSET 01994 12/26/2024 04/0 10/2023, 02/11/2023, 01/07/2022, Additional history exists Colonoscopy 02/17/2026 02/18/2016, [...] Date/Time Associated Diagnosis Comments EKG SCANNED RESULT 11/26/2023 documented in this encounter Results * EKG SCANNED RESULT (11/26/2023) 11/26/2023 No Physician Data Unknown EKG documented in this encounter Advance Directives Documents on File Type Date Recorded Patient Supervisor Dyer Expl anation POLST 03/19/2020 4:25 PM [...] the patient have Health Care Power of Concreter? No Healthcare Agents on File Name Relationship Healthcare Agent Relationship Communication Galdino Camp Other - (no specific identity) Health Care Power of Concreter Princess Allen Other - (no specific identity) Health Care Power of Concreter Care Teams French Binding Folder Relationship Specialty Start Date End Date Galdino Andujar DO [address] [place] [address] PCP - General Internal Medicine 01/07/22 documented as of this encounter
--- OUTSIDE RECORDS SUMMARY | 2024-01-16 05:13 | External Medical Summary | Summary of Care ---
Author Name Unknown Organization [facility] Address [address] [place] [address] Phone [phone] Care Team Providers Care Customer Order Clerk Name Role Phone Pratima Galdino Neal DO Primary Care Provider [phone] Encounter Details Date Type Department Care Team (Late st Contact Info) Description 12/30/2023 1:00 PM EDT Home Visit Care Coordination and Integration [address], [place] [phone] Angi Hagen, Community Health Vehicle Fare Collector [address], [place] [phone] Allergies Active Allergy Reactions Criticality Noted Date [...] as of this encounter (statuses as of 12/30/2023) Medications Medication Sig Dispensed Refills Start Date [...] of 7.0%-8.0% ([facility]) INJECT 50 UNITS UNDER [...] [facility]),Chronic diastolic congestive heart failure ([facility]) TAKE 1 TABLET BY MOUTH IN THE MORNING AND AT BEDTIME 60 Tablet 5 09/12/2023 Active DULoxetine HCl 60 MG Oral Capsule Delayed Release Particles (Cymbalta)Indication s:Fibromyalgia,Major depressive disorder, recurrent, moderate ([facility]) TAKE 1 CAPSULE BY MOUTH [...] Pain, Severe. 90 Tablet 0 11/20/2023 Active oxyCODONE HCl 5 MG Oral Tablet (Oxy IR)Indications:Spina l stenosis of lumbar region without neurogenic claudication,Lumbar radiculopathy Take 1 Tablet by mouth every 6 hours as needed for Pain, Severe. 45 Tablet 0 12/22/2023 Active clonazePAM 0.5 MG Oral Tablet (KlonoPIN)Indication s:Restless legs syndrome,Anxiety state Take 1 Tablet by mouth in the morning and 1 Tablet at noon and 1 Tablet before bedtime. 90 Tablet 0 12/22/2023 Active traZODone HCl 50 MG Oral Tablet (Desyrel) Take 1 Tablet by mouth at bedtime. 30 Tablet 5 12/22/2023 Active Omeprazole 20 MG Oral Capsule Delayed Release (PriLOSEC)Indication s:Gastroesophageal reflux disease with esophagitis without hemorrhage TAKE 1 CAPSULE BY MOUTH ONCE DAILY IN THE MORNING 30 Capsule 3 12/30/2023 Active Cholecalciferol 25 MCG (1000 UT) Oral Capsule Take 1 capsule by mouth daily in the morning 30 Capsule 5 12/30/2023 Active documented as of this encounter (statuses as of 12/30/2023) Active Problems Problem Noted Date Diagnosed Date [...] by vascular, reports upcoming carotid surgery at [facility]. She states she has [...] as of this encounter (statuses as of 12/30/2023) Resolved Problems Problem Noted Date Diagnosed Date [...] as of this encounter (statuses as of 12/30/2023) Immunizations Name Administration Dates Next Due COVID-19 mRNA, LNP-s, No Pre serve, 2-Dose Series (RingTu) 01/08/2021,12/18/2020 COVID-19, LNP-s, No Preserve , Navarro-sucrose, Ages 12+ (Pfizer) 2022,10/01/2021 COVID-19, MRNA-LNP, 23-24, P F, 30 MCG/0.3 mL, 12 YRS AND ABOVE, IM (Xanga-Comirnat) 07/26/2023 Pneumococcal Conjugate Vacci ne, 20-valent ([id number]) 03/12/2022 Pneumococcal Polysaccharide PPV23 (Pneumovax) 08/22/2009,06/15/2006 Season [...] Sign Reading Time Taken Comments Blood Pressure 140/60 12/30/2023 1:41 PM EDT Pulse 78 12/30/2023 1:41 PM EDT Temperature 36.3 C (97.3 F) 12/30/2023 1:41 PM ED T Respiratory Rate - - Oxygen Saturation 97% 12/30/2023 1:41 PM EDT Inhaled Oxygen Concentration - - Weight - - Height - - Body Mass Index - - documented in this encounter Progress Notes * Angi Hagen, Community Health Vehicle Fare Collector - 12/30/2023 1:16 PM EDT Telemedicine visit: No Community Health Vehicle Fare Collector (LES) documentation: CHW facilitated weekly home visit/vital check with patient. When CHW arrived patient was on the phone with the assistance office and they stated that she no longer qualified for medicaid. Patient became very tearful and upset and started crying. Patient is feeling very overwhelmed and doesn't know what she is going to do and how she is going to pay for her O2 and Insulin. CHW suggested applying for PACE and patient was in agreement to do that. CHW left PACE phone number to apply over the phone.Patient was in agreement to call to apply. Patient calmed down after a while. CHW did a safety check and asked patient is she was having thoughts to hurt herself and patient replied "I am just so tired" Angi Hagen- Community Health Worker 1 Support Services/[employer] [facility] [email or web address] documented in this encounter Plan of Treatment Upcoming Encounters Date Type Department Care Team (Late st Contact Info) Description 01/06/2024 11:00 AM EDT Home Visit Care Coordination and Integration [address] [place] [address] Angi Hagen, Community Health Vehicle Fare Collector [address] [place] [address] 01/06/2024 1:00 PM EDT Office Visit Family Practice 65 [facility] [address] [place] [phone] Galdino Andujar, DO 293 [facility] [place] [address] 01/11/2024 3:30 PM EDT Office Visit [facility], [facility] [address] Marjorie Powell PA-C 132 [place] [address] 01/19/2024 9:00 AM EDT Office Visit Family Practice 65 [facility] 293 [place] [address] Galdino Andujar, 293 [facility] [place] [address] 02/14/2024 1:00 PM EDT Nurse Only Ancillary 65 [facility] 293 [place] [address] College, Nurse Annual Wellness Visit [address] [place] [address] 09/12/2024 11:00 AM EST Office Visit Nephrology, [address], [place] [address] Erik Lenz MD [address] [place] [address] Scheduled Procedures Name Priority Associated Diagnoses Date/Ti [...] 10/04/2023, 0 11/01/2022, 01/07/2022, Additional history exists Depression Screening 10/20/2024 10/20/2023, 06/12/20 18 CKD HGB USE SMARTSET 57692 12/21/202412/21, 12/22/2023, 11/07/2023, Additional history exists TSH 12/21/2024 12/22/2023, 09/26, 11/01/2022, Additional history exists CKD PHOS USE SMARTSET 82946 12/26/2024 04/0 10/2023, 02/11/2023, 01/07/2022, Additional history [...] on File Type Date Recorded Patient Car Supervisor Expl anation POLST 03/19/2020 4:25 PM [...] the patient have Health Care Power of Five Roll Refiner Batch Mixer? No Healthcare Agents on File Name Relationship Healthcare Agent Relationship Communication Galdino Camp Other - (no specific identity) Health Care Power of Five Roll Refiner Batch Mixer Princess Allen Other - (no specific identity) Health Care Power of Five Roll Refiner Batch Mixer Care Teams Customer Order Clerk Relationship Specialty Start Date End Date Galdino Andujar DO [address] [place] [address] PCP - General Internal Medicine 01/07/22 documented as of this encounter
--- OUTSIDE RECORDS SUMMARY | 2024-01-16 05:13 | External Medical Summary | Summary of Care ---
Author Name Unknown Organization [facility] Address [address] [place] [address] Phone [phone] Care Team Providers Care Apprentice Carpenter Name Role Phone PratimaGaldino DO Primary Care Provider [phone] Encounter Details Date Type Department Care Team (Late st Contact Info) Description 01/10/2024 1:00 PM EDT Home Visit Care Coordination and Integration [address] [place] [address] Crystal Love [facility] Software Test Specialist [address], [place] [phone] Allergies Active Allergy Reactions Criticality Noted Date [...] as of this encounter (statuses as of 01/10/2024) Medications Medication Sig Dispensed Refills Start Date [...] goal of 7.0%-8.0% ([facility]) Inject 8 units with breakfast and 8units lunch and 10 units with dinner + sliding scale 1 units for every 25 units BG > 150. 150 mL 3 05/16/2023 Active OneTouch Verio In Vitro Strip (Glucose Blood)Indications:Hy poglycemia,Type 2 diabetes mellitus with stage 3b chronic kidney disease, with long-term current use of insulin ([facility]) Use up to 4 times [...] goal of 7.0%-8.0% ([facility]) INJECT 50 UNITS UNDER THE [...] Particles (Cymbalta)Indication s:Fibromyalgia,Major depressive disorder, recurrent, moderate ([facility]) TAKE 1 CAPSULE BY MOUTH [...] as of this encounter (statuses as of 01/10/2024) Active Problems Problem Noted Date Diagnosed Date [...] has rx for atorvastatin and plavix to shredder picker at pharmacy. 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 Atherosclerosis of [place] co ronary artery without angina pectoris 12/31/2021 [...] rx evidently given by vascular, has to shredder picker rx documented as of this encounter (statuses as of 01/10/2024) Resolved Problems Problem Noted Date Diagnosed Date [...] as of this encounter (statuses as of 01/10/2024) Immunizations Name Administration Dates Next Due COVID-19 mRNA, LNP-s, No Pre serve, 2-Dose Series (Net Element) 01/08/2021,12/18/2020 COVID-19, LNP-s, No Preserve , Navarro-sucrose, Ages 12+ (Pfizer) 2022,10/01/2021 COVID-19, MRNA-LNP, 23-24, P F, 30 MCG/0.3 mL, 12 YRS AND ABOVE, IM ([facility]) 07/26/2023 Pneumococcal Conjugate Vacci ne, 20-valent ([id number]) 03/12/2022 Pneumococcal Polysaccharide PPV23 (Pneumovax) 08/22/2009,06/15/2006 Season [...] money to buy more. Never true 10/20/19 Within the past 12 months, t he [...] Reading Time Taken Comments Blood Pressure 120/62 01/10/2024 1:24 PM EDT Pulse 92 01/10/2024 1:24 PM EDT Temperature 35.7 C (96.2 F) 01/10/2024 1:24 PM ED T Respiratory Rate 20 01/10/2024 1:24 PM EDT Oxygen Saturation 96% 01/10/2024 1:24 PM EDT Inhaled Oxygen Concentration - - Weight - - Height - - Body Mass Index - - documented in this encounter Progress Notes * Crystal Love Community Health Software Test Specialist - 01/10/2024 1:26 PM EDT Telemedicine visit: No Community Health Software Test Specialist (LES) documentation: CHW visit completed this date per CORI Pradhan Vitals were taken with everything in normal range Pt. Stated she did hear back on Tuesday from [place] and there was a mistake on her paperwork. Her MA wasreinstated and she is receiving food stamps. Pt was very pleasant and upbeat this date with the knowledge she has more financial assistance. Pt states she caught her right, big toe and tore the nail off. CHW educated pt. On what to look forin case of infection and to contact her CM or PCP if she notices redness, swelling or any dischargefrom toe. documented in this encounter Plan of Treatment Upcoming Encounters Date Type Department Care Team (Late st Contact Info) Description 01/11/2024 3:30 PM EDT Office Visit Cardiology, [facility] 132 [facility] [place] [address] Marjorie Powell PA-C [facility] [place] [address] 01/19/2024 8:30 AM EDT Office Visit Family Practice 65 [facility] 293 [place] [phone] [place], Pharmacist [address] [place] [address] 01/19/2024 9:00 AM EDT Office Visit Family Practice 65 [facility] 293 [place] [phone] Galdino Andujar, 293 [facility] [place] [address] 02/14/2024 1:00 PM EDT Nurse Only Ancillary 65 [facility] 293 [place] [address] [place], Nurse Annual Wellness Visit [address] [place] [address] 09/12/2024 11:00 AM EST Office Visit Nephrology, [facility] [address] [place] [address] Erki Lenz MD [address] [place] [address] Scheduled Procedures Name Priority Associated Diagnoses Date/Ti [...] Additional history exists CKD HGB USE SMARTSET 89704 12/21/202412/21, 12/22/2023, 11/07/2023, Additional history exists TSH 12/21/2024 12/22/2023, 09/26, 11/01/2022, Additional history exists CKD PHOS USE SMARTSET 02349 12/26/2024 04/0 10/2023, 02/11/2023, 01/07/2022, Additional history [...] Documents on File Type Date Recorded Patient Anthropologist Physical Expl anation POLST 03/19/2020 4:25 PM POLST [...] the patient have Health Care Power of Bread Dumper? No Healthcare Agents on File Name Relationship Healthcare Agent Relationship Communication Galdino Camp Other - (no specific identity) Health Care Power of Bread Dumper Princess Other - (no specific identity) Health Care Power of Bread Dumper Care Teams Apprentice Carpenter Relationship Specialty Start Date End Date Galdino Andujar DO [address] [place] [address] PCP - General Internal Medicine 01/07/22 documented as of this encounter
--- OUTSIDE RECORDS SUMMARY | 2024-01-16 05:13 | External Medical Summary ---
Author Name Unknown Address Unknown Organization K01:[facility] [place] - [address] [place] [address] Laboratory Report Ordering Provider Test Date Status JAG SHULTZ 12/27/2023 10:28:50 Final Observation Date Value Abnormality Reference (Units ) Status Parathyrin.intact [Mass/volume] in Serum or Plasma 12/27/2023 10:28:50 61 15-65 (pg/mL) Final Performing Location [facility] [place] - [address] [place] [address]
--- OUTSIDE RECORDS SUMMARY | 2024-01-16 05:13 | External Medical Summary | Summary of Care ---
Author Name Unknown Organization [facility] Address [address] [place] [address] Phone [phone] Care Team Providers Care Top Distribution Executive Name Role Phone Lexii Andujar DO Primary Care Provider [phone] Reason for Visit * Reason Comments eRx-Medication Refill Encounter Details Date Type Department Care Team (Late st Contact Info) Description 12/29/2023 Refill [facility], [facility] [address] [facility] [address] Lexii Andujar DO [address] [place] [address] Gastroesophageal reflux disease with esophagitis without hemorrhage Allergies Active Allergy Reactions Criticality Noted Date [...] 7.0%-8.0% ([facility]) Inject 8 units with breakfast and 8units lunch and 10 units with dinner + sliding scale 1 units for every 25 units BG > 150. 150 mL 3 3 Active OneTouch Verio In Vitro Strip (Glucose Blood)Indications: Hypoglycemia,Type 2 diabetes mellitus with stage 3b chronic kidney disease, with long-term current use of insulin ([facility]) Use up to 4 times a day E11.9 in case of dexcom failure 100 Strip 11 3 Active Dexcom G7 Sensor Use as directed. 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, NYHA class 1 and CKD stage 3 ([facility]),Chronic diastolic congestive heart failure ([facility]) TAKE 1 TABLET BY MOUTH IN THE MORNING AND AT BEDTIME 60 Tablet 5 3 Active Gabapentin 300 MG Oral Capsule (Neurontin)Indicat ions:Fibromyalgia TAKE 2 CAPSULES BY MOUTH IN THE MORNING, NOON AND BEDTIME] 168 Capsule 5 3 Active Mounjaro 5 MG/0.5ML Subcutaneous Solution [...] of 7.0%-8.0% ([facility]) INJECT 50 UNITS UNDER THE SKIN [...] AT BEDTIME 60 Tablet 5 3 Active rOPINIRole HCl 2 MG Oral Tablet (Requip)Indication s:Restless legs syndrome Take 1 Tablet by mouth at bedtime. 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 0 4 Active Dicyclomine HCl 20 MG Oral Tablet (Bentyl)Indication s:Irritable bowel syndrome, unspecified type Take 1 Tablet by mouth 4 times a day as needed for Cramping. 180 Tablet 3 4 Active traMADol HCl 50 MG Oral Tablet (Ultram)Indication s:Lumbar radiculopathy,Prim elif osteoarthritis of left knee Take 1 Tablet by mouth every 8 hours as needed for Pain, Severe. 90 Tablet 0 4 Active oxyCODONE HCl 5 MG Oral Tablet (Oxy IR)Indications:Spi nal stenosis of lumbar region without neurogenic claudication,Lumba r radiculopathy Take 1 Tablet by mouth every 6 hours as needed for Pain, Severe. 45 Tablet 0 4 Active clonazePAM 0.5 MG Oral Tablet (KlonoPIN)Indicati ons:Restless legs syndrome,Anxiety state Take 1 Tablet by mouth in the morning and 1 Tablet at noon and 1 Tablet before bedtime. 90 Tablet 0 4 Active traZODone HCl 50 MG Oral Tablet (Desyrel) Take 1 Tablet by mouth at bedtime. 30 Tablet 5 4 Active Omeprazole 20 MG Oral Capsule Delayed Release (PriLOSEC)Indicati ons:Gastroesophage al reflux disease with esophagitis without hemorrhage TAKE 1 CAPSULE BY MOUTH ONCE DAILY IN THE MORNING 30 Capsule 3 4 Active Cholecalciferol 25 MCG (1000 UT) Oral Capsule TAKE 1 TABLET BY MOUTH ONCE DAILY IN THE MORNING 30 Capsule 5 3 12/30/19 24 Discontinued Omeprazole 20 MG Oral Capsule Delayed Release (PriLOSEC)Indicati ons:Gastroesophage al reflux disease with esophagitis without hemorrhage TAKE 1 CAPSULE BY MOUTH ONCE DAILY IN THE MORNING 30 Capsule 3 3 12/30/19 24 Discontinued documented as of this encounter (statuses [...] carotid surgery at [facility]. She states she has rx for atorvastatin and plavix to case picker at pharmacy. 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 Atherosclerosis of [place] co ronary artery without angina pectoris 12/31/2021 [...] Assessment & Plan: Home PT to start Chana filter in place 08/19/2014 History of pulmonary [...] rx evidently given by vascular, has to case picker rx documented as of this encounter [...] mRNA, LNP-s, No Pre serve, 2-Dose Series (21GRAMS) 01/08/2021,12/18/2020 COVID-19, LNP-s, No Preserve , Navarro-sucrose, Ages 12+ (Pfizer) 2022,10/01/2021 COVID-19, MRNA-LNP, 23-24, P F, 30 MCG/0.3 mL, 12 YRS AND ABOVE, IM (PFIZER-Comirnaty) 07/26/2023 Pneumococcal Conjugate Vacci ne, 20-valent ([id number]) 03/12/2022 Pneumococcal Polysaccharide PPV23 (Pneumovax) 08/22/2009,06/15/2006 Season [...] Telephone Encounter - Lexii Andujar DO - 12/30/2023 7:51 AM EDTSigned Prescriptions: Disp Refills Omeprazole 20 MG Oral Capsule Delayed Rele*30 Cap*3 Sig: TAKE 1 CAPSULE BY MOUTH ONCE DAILY IN THE MORNINGAuthorizing Provider: LEXII ANDUJAR * Telephone Encounter - Mattie Mao LPN - 12/29/2023 3:46 PM EDT Did you pend patient's preferred pharmacy and medication before forwarding?yes Pharmacy: [facility] [address]- [place] Pending Prescriptions: Disp Refills Omeprazole 20 MG Oral Capsule Delayed Rel*30 Cap*3 Sig: TAKE 1 CAPSULE BY MOUTH ONCE DAILY IN THE MORNING Last Visit: Visit date not found (in office), 07/12/2023 (telemedicine) Next Visit: Visit date not found [...] Results Component Value Date/Time CREAT 1.7 (H) 12/27/2023 10:28 AM CREAT 1.69 09/07/2023 12:00 AM CREAT 2.0 (H) 05/06/2020 08:46 AM POTASSIUM 4.4 12/27/2023 10:28 AM POTASSIUM 3.9 07/25/2023 12:00 AM POTASSIUM 4.0 05/06/2020 08:46 AM TSH 1.36 12/22/2023 11:39 AM TSH 5.35 (H) 05/06/2020 08:46 AM LDLCALC 60 11/07/2023 04:43 PM LDLCALC UNINTERPRETABLE RESULT 03/14/2019 01:54 PM LDLDIRECT 126 03/14/2019 01:54 PM LDLDIRECT 109 07/14/2017 12:35 PM ALT 10 12/22/2023 11:39 AM ALT 27 05/06/2020 08:46 AM HGBA1C 7.2 (H) 12/22/2023 11:39 AM HGBA1C 7.5 (H) 09/20/2023 12:00 AM HGBA1C 7.3 (H) 01/23/2020 11:11 AM * Telephone Encounter - Pop Greer [facility] - 12/29/2023 3:27 PM EDT Pending Prescriptions: Disp Refills Omeprazole 20 MG Oral Capsule Delayed Rele*30 Cap*3 Sig: TAKE 1CAPSULE BY MOUTH ONCE DAILY IN THE MORNING documented in this encounter Plan of Treatment Upcoming Encounters Date Type Department Care Team (Late st Contact Info) Description 12/30/2023 1:00 PM EDT Home Visit Care Coordination and Integration [address] [place] [address] Angi Hagen, Community Health Staple Laster [address] [place] [address] 01/06/2024 11:00 AM EDT Home Visit Care Coordination and Integration [address] [place] [address] Angi Hagen, Community Health Staple Laster [address] [place] [address] 01/06/2024 1:00 PM EDT Office Visit Family Practice 65 [facility] 293 [facility] [place] [phone] Lexii Andujar, DO [address] [place] [address] 01/11/2024 3:30 PM EDT Office Visit Cardiology, [facility] 132 [facility] [place] [address] Marjorie Powell PA-C 132 [facility] [place] [address] 01/19/2024 9:00 AM EDT Office Visit Family Practice 65 [facility] 293 [facility] [place] [phone] Lexii Andujar, DO [address] [place] [address] 02/14/2024 1:00 PM EDT Nurse Only Ancillary [address] [place] [address] College, Nurse Annual Wellness Visit [address] [place] [address] 09/12/2024 11:00 AM EST Office Visit Nephrology, [facility] [address] [place], [place] [address] Erik Lenz MD [address] [place] [address] Scheduled Procedures Name Priority Associated Diagnoses Date/Ti [...] 10/20/2023, 06/12/20 18 CKD HGB USE SMARTSET 56183 12/21/202412/21, 12/22/2023, 11/07/2023, Additional history exists TSH 12/21/2024 12/22/2023, 09/26, 11/01/2022, Additional history exists CKD PHOS USE SMARTSET 31457 12/26/2024 04/0 10/2023, 02/11/2023, 01/07/2022, Additional history [...] Gastroesophageal reflux disease with esophagitis without hemorrhage documented in this encounter Advance Directives Documents on File Type Date Recorded Patient Manager Willow Expl anation POLST 03/19/2020 4:25 PM POLST [...] the patient have Health Care Power of Spotter Driver? No Healthcare Agents on File Name Relationship Healthcare Agent Relationship Communication Lexii Camp Other - (no specific identity) Health Care Power of Spotter Driver Princesseugene Allen Other - (no specific identity) Health Care Power of Spotter Driver Care Teams Top Distribution Executive Relationship Specialty Start Date End Date Lexii Andujar DO [address] [place] [address] PCP - General Internal Medicine 01/07/22 documented as of this encounter
--- OUTSIDE RECORDS SUMMARY | 2024-01-16 05:13 | External Medical Summary ---
Author Name Unknown Address Unknown Organization K09:[facility] [place] [address] Laboratory Report Ordering Provider Test Date Status JAG SHULTZ 12/27/2023 10:28:50 Final Observation Date Value Abnormality Reference (Units ) Status Phosphate 12/27/2023 10:28:50 4.4 2.5-4.8 (m g/dL) Final Performing Location [facility] [place] [address]
--- OUTSIDE RECORDS SUMMARY | 2024-01-16 05:13 | External Medical Summary ---
Author Name Unknown Address Unknown Organization K01:[facility] [place] - [address] [place] [address] Laboratory Report Ordering Provider Test Date Status LEXIIFRANCIADEVIN 12/27/2023 10:28:50 Final Deficient: <20 ng/mL
Ins ufficient: 20-29 ng/mL
Recommended/Optimum:30-50 ng/mL

Vitamin D intoxication is rare. If suspicious of Vitamin D toxicity, evaluation of serum Calcium and PTH is recommended. Observation Date Value Abnormality Reference (Units ) Status 25-OH Vitamin D total 12/27/2023 10:28:50 40 >19 (ng/mL) Final Performing Location LABORATORY C - [address] [place] [address]
--- OUTSIDE RECORDS SUMMARY | 2024-01-16 05:13 | External Medical Summary ---
Author Name Unknown Address Unknown Organization K09:[facility] [place] [address] Laboratory Report Ordering Provider Test Date Status JAG SHULTZ 12/27/2023 10:28:50 Final Observation Date Value Abnormality Reference (Units ) Status BUN 12/27/2023 10:28:50 26 Above high normal 6-20 (mg/dL) Final Creatinine 12/27/2023 10:28:50 1.7 Above high normal 0.5-1.0 (mg/dL) Final Glomerular filtration rate/1.73 sq M.predicted [Volume Rate/Area] in Serum, Plasma or Blood by Creatinine-based formula (CKD-EPI) 12/27/2023 10:28:50 32 Below low normal >=60 (mL/min) Final eGFR is calculated based on the CKD-EPI 2020 equation Sodium 12/27/2023 10:28:50 139 135-146 (m mol/L) Final Potassium 12/27/2023 10:28:50 4.4 3.5-5.1 (m mol/L) Final Cl 12/27/2023 10:28:50 96 Below low normal 98- 107 (mmol/L) Final CO2 12/27/2023 10:28:50 31 22-32 (mmo l/L) Final Anion gap 12/27/2023 10:28:50 12 7-15 (mmol /L) Final Glucose 12/27/2023 10:28:50 134 Above high normal 70 -120 (mg/dL) Final Calcium 12/27/2023 10:28:50 9.3 8.4-10.2 ( mg/dL) Final Performing Location [facility] [place] [address]
--- OUTSIDE RECORDS SUMMARY | 2024-01-16 05:13 | External Medical Summary | Summary of Care ---
Author Name Unknown Organization [facility] Address [address] [place] [address] Phone [phone] Care Team Providers Care Psychologist Counseling Name Role Phone PratimaGaldino DO Primary Care Provider [phone] Reason for Visit * Reason Onset Date Comments Appointment 01/06/2024 Encounter Details Date Type Department Care Team (Late st Contact Info) Description 01/06/2024 Telephone [facility] [place] [address] [place] [address] [phone] Services, Scheduling [address] [place] [address] Appointment (//) Allergies Active Allergy Reactions Criticality [...] as of this encounter (statuses as of 01/06/2024) Medications Medication Sig Dispensed Refills Start Date [...] goal of 7.0%-8.0% ([facility]) Inject 8 units with breakfast and 8units lunch and 10 units with dinner + sliding scale 1 units for every 25 units BG > 150. 150 mL 3 05/16/2023 Active OneTouch Verio In Vitro Strip (Glucose Blood)Indications:Hy poglycemia,Type 2 diabetes mellitus with stage 3b chronic kidney disease, with long-term current use of insulin ([facility]) Use up to 4 times a day E11.9 in case of dexcom failure 100 Strip 11 05/31/2023 Active Dexcom G7 Sensor Use as directed. 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..] as of this encounter (statuses as of 01/06/2024) Active Problems Problem Noted Date Diagnosed Date [...] by vascular, reports upcoming carotid surgery at [facility]. She states she has rx for atorvastatin and plavix to supervisor opening and picking at pharmacy. 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) 07/26/2023 Pneumococcal Conjugate Vacci ne, 20-valent ([id number]) 03/12/2022 Pneumococcal Polysaccharide PPV23 (Pneumovax) 08/22/2009,06/15/2006 Season [...] Telephone Encounter - Brandie No OSA - 01/06/2024 8:27 AM EDT Incoming call from Stephanie to cx appt today and rs dt other dr appt today documented in this encounter Plan of Treatment Upcoming Encounters Date Type Department Care Team (Late st Contact Info) Description 01/06/2024 1:00 PM EDT Office Visit Family Practice [address] [place] [phone] Galdino Andujar, DO [address] [place] [address] 01/06/2024 1:40 PM EDT Office Visit Family Practice [address] [facility] [address] [place] [phone] College, Pharmacist [address] [address] 01/10/2024 1:00 PM EDT Home Visit Care Coordination and Integration [address] [place] [address] Angi Hagen, Community Health Remediation Project Engineer [address] [place] [address] 01/11/2024 3:30 PM EDT Office Visit Cardiology, [facility] [address] [facility] [place] [address] Marjorie Powell, PAMyraC [address] [place] [address] 01/19/2024 9:00 AM EDT Office Visit Family Practice 65 [facility] [address] [place] [phone] Galdino Andujar, [address] [place] [address] 02/14/2024 1:00 PM EDT Nurse Only Ancillary [address] [facility] [address] [place] [address] College, Nurse Annual Wellness Visit [address] [address] 09/12/2024 11:00 AM EST Office Visit Nephrology, [facility] [place] [address] [place] [address] Erik Lenz MD [address] [facility] [place] [address] Scheduled Procedures Name Priority Associated Diagnoses Date/Ti [...] Additional history exists CKD HGB USE SMARTSET 26259 12/21/202412/21, 12/22/2023, 11/07/2023, Additional history exists TSH 12/21/2024 12/22/2023, 09/26, 11/01/2022, Additional history exists CKD PHOS USE SMARTSET 99845 12/26/2024 04/0 10/2023, 02/11/2023, 01/07/2022, Additional history [...] on File Type Date Recorded Patient Home Health Aide Caregiver Expl anation POLST 03/19/2020 4:25 PM POLST [...] the patient have Health Care Power of Cylindrical Mixer? No Healthcare Agents on File Name Relationship Healthcare Agent Relationship Communication Galdino Camp Other - (no specific identity) Health Care Power of Cylindrical Mixer Princess Other - (no specific identity) Health Care Power of Cylindrical Mixer Care Teams Psychologist Counseling Relationship Specialty Start Date End Date Galdino Andujar DO [address] [place] [id number] PCP - General Internal Medicine 01/07/22 documented as of this encounter
--- OUTSIDE RECORDS SUMMARY | 2024-01-16 05:13 | External Medical Summary | Summary of Care ---
Author Name Unknown Organization [facility] Address [address] [place] [address] Phone [phone] Care Team Providers Care Tire Shop Mechanic Name Role Phone Galdino Andujar DO Primary Care Provider [phone] Reason for Visit * Reason Onset Date Comments Test Results 12/28/202312/27 Encounter Details Date Type Department Care Team (Late st Contact Info) Description 12/28/2023 Telephone Family Practice 65 [facility] [place] [address] [place] [phone] Galdino Andujar DO [address] [place], [place] [phone] Test Results (12/27) Allergies Active Allergy Reactions Criticality Noted Date [...] as of this encounter (statuses as of 12/28/2023) Medications Medication Sig Dispensed Refills Start Date [...] insulin ([facility]) Use up to 4 times a day E11.9 in case of dexcom failure 100 Strip 11 05/31/2023 Active Dexcom G7 Sensor Use as directed. 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 2 mL 07/14/2023 Active Additional Information Patient taking differently:5 [...] Particles (Cymbalta)Indication s:Fibromyalgia,Major depressive disorder, recurrent, moderate ([facility]) TAKE 1 CAPSULE BY MOUTH ONCE DAILY [...] at bedtime. 30 Tablet 5 12/22/2023 Active documented as of this encounter (statuses as of 12/28/2023) Active Problems Problem Noted Date Diagnosed Date [...] by vascular, reports upcoming carotid surgery at [facility]. She states she has rx for atorvastatin and plavix to pickle processor at pharmacy. 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 Atherosclerosis of [place] ronary artery without angina pectoris 12/31/2021 [...] Assessment & Plan: Home PT to start [place] filter in place 08/19/2014 History of pulmonary [...] evidently given by vascular, has to pickle processor rx documented as of this encounter (statuses as of 12/28/2023) Resolved Problems Problem Noted Date Diagnosed Date [...] time <89% 6:21 hours, TNIY 47 DHC Nontoxic uninodular goiter 06/16/2011 1 [...] as of this encounter (statuses as of 12/28/2023) Immunizations Name Administration Dates Next Due COVID-19 mRNA, LNP-s, No Pre serve, 2-Dose Series ([facility]) 01/08/2021,12/18/2020 COVID-19, LNP-s, No Preserve , Navarro-sucrose, Ages 12+ (Pfizer) 2022,10/01/2021 COVID-19, MRNA-LNP, 23-24, P F, 30 MCG/0.3 mL, 12 YRS AND ABOVE, IM ([employer]Comirnaty) 07/26/2023 Pneumococcal Conjugate Vacci ne, 20-valent ([id number]) 03/12/2022 Pneumococcal Polysaccharide PPV23 (Pneumovax) 08/22/2009,06/15/2006 Season [...] Telephone Encounter - Galdino Andujar DO - 12/28/2023 1:08 PM EDT Noted * Telephone Encounter - Flaca Springer LPN - 12/28/2023 12:55 PM EDT Call placed to patient and relayed information from Dr. Andujar. Pt acknowledged understanding. Pt reports her anxiety is a little better. She she has not started increase the increase in clonazepam - waiting for delivery from pharmacy. States she will call pharmacy to check on delivery and will contact office if assistance is needed. * Telephone Encounter - Irina Perrin OSA - 12/28/2023 12:07 PM EDT Returning call * Telephone Encounter - Flaca Springer LPN - 12/28/2023 10:24 AM EDT Call placed to patient - no answer. Message left to return call to [phone]. * Telephone Encounter - Flaca Springer LPN - 12/28/2023 10:22 AM EDT ----- Message from Galdino Andujar DO sent at 12/28/2023 8:07 AM EDT ----- CKD is stable. PTH, Vitamin and Phosphorus are normal. See if anxiety has improved with additional dose of Clonazepam . documented in this encounter Plan of Treatment Upcoming Encounters Date Type Department Care Team (Late st Contact Info) Description 12/30/2023 1:00 PM EDT Home Visit Care Coordination and Integration [address] [place] [address] Angi Hagen, Community Health Critical Care Nurse Specialist [address] [place] [address] 01/06/2024 11:00 AM EDT Home Visit Care Coordination and Integration [address] [place] [address] Angi Hagen, Community Health Critical Care Nurse Specialist [address] [place] [address] 01/06/2024 1:00 PM EDT Office Visit Family Practice [address] [place] [address] 293 [place] [phone] Galdino Andujar DO [address] [place] [address] 01/11/2024 3:30 PM EDT Office Visit Cardiology, [facility] 132 [facility] [place] [address] Marjorie Powell, PA-C 132 [facility] [place] [address] 01/19/2024 9:00 AM EDT Office Visit Family Practice 65 [facility] 293 [place] [phone] Galdino Andujar, DO [address] [place] [address] 02/14/2024 1:00 PM EDT Nurse Only Ancillary 65 [facility] [address] [place] [address] College, Nurse Annual Wellness Visit [address] [address] 09/12/2024 11:00 AM EST Office Visit Nephrology, [facility] 200 [facility] [place] [address] Erik Lenz MD 200 [facility] [place] [address] Scheduled Procedures Name Priority Associated Diagnoses Date/Ti [...] history exists Depression Screening 10/20/2024 10/20/2023, 06/12/20 CKD HGB USE SMARTSET 96431 12/21/202412/21, 12/22/2023, 11/07/2023, Additional history exists TSH 12/21/2024 12/22/2023, 09/26, 11/01/2022, Additional history exists CKD PHOS USE SMARTSET 01675 12/26/2024 04/0 10/2023, 02/11/2023, 01/07/2022, Additional history [...] Documents on File Type Date Recorded Patient Varnisher Plasticoater Expl anation POLST 03/19/2020 4:25 PM POLST [...] the patient have Health Care Power of Sorting Grapple Operator? No Healthcare Agents on File Name Relationship Healthcare Agent Relationship Communication Galdino Camp Other - (no specific identity) Health Care Power of Sorting Grapple Operator Princess Other - (no specific identity) Health Care Power of Sorting Grapple Operator Care Teams Tire Shop Mechanic Relationship Specialty Start Date End Date Galdino Andujar DO [address] [place] [address] PCP - General Internal Medicine 01/07/22 documented as of this encounter
--- OUTSIDE RECORDS SUMMARY | 2024-01-16 05:13 | External Medical Summary | Summary of Care ---
Author Name Unknown Organization [facility] Address [address] [place] [address] Phone [phone] Care Team Providers Care It Project Manager Name Role Phone Galdino Andujar DO Primary Care Provider [phone] Reason for Visit * Reason Comments Outpatient Testing Hospital Follow-Up Encounter Details Date Type Department Care Team (Late st Contact Info) Description 12/27/2023 10:40 AM EDT Office Visit NephrologyGregorio [address] [place] [address] Erik Lenz MD [address] [facility] [place] [address] Stage 3b chronic kidney disease (HCC)*; Hyperparathyroidism, secondary renal (HCC); Vitamin D deficiency; Chronic diastolic congestive heart failure (HCC); HTN, goal below 130/80 Allergies Active Allergy Reactions Criticality Noted Date [...] as of this encounter (statuses as of 12/27/2023) Medications Medication Sig Dispensed Refills Start Date End Date Status ONETOUCH DELICA LANCBETTY 33G MISC Check blood sugars 3-4 times [...] of 7.0%-8.0% ([facility]) Inject 8 units with breakfast [...] Dexcom G7 Sensor Use as directed. (From [facility]) 0 06/01/2023 Active Levothyroxine Sodium 200 MCG Oral Tablet (Levoxyl)Indications :Postsurgical hypothyroidism TAKE 1 TABLET BY MOUTH ONCE DAILY IN THE MORNING 30 Tablet 5 06/16/2023 Active Magnesium Oxide 400 MG Oral TabletIndications:Be nign hypertensive heart and kidney disease with diastolic CHF, NYHA class 1 and CKD stage 3 ([facility]),Chronic diastolic congestive heart failure (HCC) [...] goal of 7.0%-8.0% ([facility]) INJECT 50 UNITS UNDER THE [...] class 1 and CKD stage 3 ([facility]),Chronic diastolic congestive heart failure ([facility]) TAKE 1 TABLET BY MOUTH [...] as of this encounter (statuses as of 12/27/2023) Active Problems Problem Noted Date Diagnosed Date [...] vascular, reports upcoming carotid surgery at [facility]. She states she has rx for atorvastatin and plavix to grape picker at pharmacy. 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 [place] ronary artery without angina pectoris [...] Assessment & Plan: Home PT to start [place] filter in place 08/19/2014 History of [...] rx evidently given by vascular, has to grape picker rx documented as of this encounter (statuses as of 12/27/2023) Resolved Problems Problem Noted Date Diagnosed Date [...] as of this encounter (statuses as of 12/27/2023) Immunizations Name Administration Dates Next Due COVID-19 mRNA, LNP-s, No Pre serve, 2-Dose Series (MediSwipe) 01/08/2021,12/18/2020 COVID-19, LNP-s, No Preserve , Navarro-sucrose, Ages 12+ (Pfizer) 2022,10/01/2021 COVID-19, MRNA-LNP, 23-24, P F, 30 MCG/0.3 mL, 12 YRS AND ABOVE, IM (PFIZER-Comirnaty) 07/26/2023 Pneumococcal Conjugate Vacci ne, 20-valent ([id number]) 03/12/2022 Pneumococcal Polysaccharide PPV23 (Pneumovax) 08/22/2009,06/15/2006 Season [...] Sign Reading Time Taken Comments Blood Pressure 90/57 12/27/2023 10:37 AM EDT Pulse 85 12/27/2023 10:37 AM EDT Temperature 36.1 C (96.9 F) 12/27/2023 1 0:37 AM EDT Respiratory Rate - - Oxygen Saturation - - Inhaled Oxygen Concentration - - Weight 126.2 kg (278 lb 4.8 oz) 024 10:37 AM EDT Height - - Body Mass Index 46.31 12/22/2023 10:41 AM EDT documented in this encounter Progress Notes * Erik Lenz MD - 12/27/2023 10:51 AM EDT Background-----68-year-old female with 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 She has history of type 2 diabetes for over 20 years mostly uncontrolled in the past, no retinopathy but has neuropathy, ELISSA on CPAP, DVT status post IVC filter, fibromyalgia hypertension and obesity. Ultrasound done on 06/06/2018 showed the right kidney of 10.2 cm and left kidney of 10.9 cm. There was mild cortical atrophy and mild right-sided hydronephrosis. Echocardiogram April 2019 showed EF of 60% and grade 1 diastolic dysfunction. She was hospitalized at [facility] on 05/09/2019 with the weakness and CHF exacerbation. Creatinine peaked at 2.3. Last office visit was in 2021-- saw her in the hospital November 2023 for acute kidney injury in the setting of urosepsis related with right sided hydronephrosis. She did have a right ureteric stent andwill be getting that forever with stent exchange every 3 months and next 1 will be in February 2024. Cre atinine peaked at 2.4 but it is back to her baseline of 1.6 already. She is back on usual dose of Lasix 60 twice daily. Review of Systems: General ROS: negative for [...] Diagnosis Date ELSIE (acute kidney injury) ([facility]) 06/12/2018 Allergic rhinitis due to other allergen Chronic hypoxemic respiratory failure ([facility]) 01/07/2022 Diverticulosis of colon 01/28/2006 Essential hypertension with goal blood pressure less than 140/90 02/22/2014 ELLIE (generalized anxiety disorder) 09/13/2009 Goiter [place] filter in place 08/19/2014 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[facility]) 08/22/2009 History of pulmonary embolus (PE) 07/16/2014 HTN, goal below 140/90 Impetigo 09/27/2018 Obesity, BMI not known Perforation of intestine ([facility]) 1996 COLON -- 1996 Pneumonia in aspergillosis(484.6) 09/14/2009 Recurrent deep vein thrombosis (DVT) of both lower extremities ([facility]) 01/07/2022 Sleep apnea, obstructive Spinal stenosis of lumbar region without neurogenic claudication 07/15/2020 Spontaneous pneumothorax 09/14/2009 Statin intolerance 07/16/2014 Type 2 diabetes mellitus with hemoglobin A1c goal of less than 8.0% ([facility]) 01/07/2022 Past Surgical History: Procedure Laterality Date ARTHROPLASTY KNEE TOTAL Right 07/24/2014 R COLONOSCOPY, DIAGNOSTIC (RECTUM) 02/18/2016 normal, repeat 10 yrs/[facility] COLONOSCOPY, GI REFERRAL OP 01/28/2006 diverticulosis--repeat 10 years INCISION OF [place], PLANNED 06/03/2011 TRACHEOSTOMY PLANNED performed by DANNY HOLDER at [facility] INJECT DX/THER SUBSTANCE INTERLAMINAR LUMBAR/SACRAL W IMAGE GUIDE 05/26/2020 INJECTION SPINE LUMBAR OR SACRAL performed by Raj Callum Ahn, DO at OR [facility] INJECT DX/THER SUBSTANCE INTERLAMINAR LUMBAR/SACRAL W IMAGE GUIDE 05/14/2021 INJECTION SPINE LUMBAR OR SACRAL performed by Raj Ahn, DO at OR [facility] INJECT DX/THER SUBSTANCE INTERLAMINAR LUMBAR/SACRAL W IMAGE GUIDE 08/13/2021 INJECTION SPINE LUMBAR OR SACRAL performed by [place] Callum Ahn DO at OR [facility] KNEE ARTHROSCOPY/DEBRIDEMENT 07/27/[address] PERMANENT GASTROSTOMY TUBE 09/06/2009 GASTROSTOMY WITH CONSTUCTION GASTRIC TUBE performed by AMADOU NUNEZ at [facility] REMOVAL OF THYROID GLAND 06/15/2011 THYROIDECTOMY INCLUDING SUBSTERNAL THYROID CERVICAL APPROACH performed by DANNY HOLDER at [facility] REMOVE GALLBLADDER 09/06/2009 CHOLECYSTECTOMY performed by AMADOU NUNEZ at [facility] REPAIR RECURRENT INCISIONAL HERNIA 09/26/1998 REVISION OF COLOSTOMY, SIMPLE 09/26/1997 SACROILIAC JOINT INJECT W/GUIDANCE 07/28/2020 INJECTION SACROILIAC JOINT performed by Raj Ahn DO at OR [facility] SACROILIAC JOINT INJECT W/GUIDANCE 03/03/2022 INJECTION SACROILIAC JOINT performed by Raj Ahn DO at OR [facility] SACROILIAC JOINT INJECT W/GUIDANCE 05/04/2023 INJECTION SACROILIAC JOINT performed by Raj Callum Ahn DO at OR [facility] SUTURE, LARGE INTESTINE W/COLOSTOMY 09/26/1996 perforation R colon with colostomy TRANSCATH STENT-CAROTID ARTERY, W/EMBOL PROTECTION Right 09/06/2023 Dr. Tang VENA CAVA FILTER/LIGATION/CLIP 08/19/2009 [place] filter placement through the right femoral 08/19/[address] [facility] Review of patient's allergies indicates: Allergen [...] Outpatient Medications Medication Sig Dispense Refill ONETOUCH DELICA LANCETS 33G MISC Check blood sugars 3-4 times daily 180 Each 5 oxygen GAS Use 3 L/min(Oxygen) as directed continuous. CPAP every night at bedtime. Acetaminophen 500 MG Oral Tablet (Tylenol) Take 2 Tablets by mouth in the morning and 2 Tablets at noon and 2 Tablets before bedtime. 100 Tablet 0 DIURETIC TITRATION PLAN If no improvement on day 3, contact heart failure managing provider. 1 Each0 NovoLOG FlexPen 100 UNIT/ML Subcutaneous Solution Pen-injector (insulin aspart) Inject 8 units withbreakfast and 8units lunch and 10 units with dinner + sliding scale 1 units for every 25 units BG > 150. 150 mL 3 Cholecalciferol 25 MCG (1000 UT) Oral Capsule TAKE 1 TABLET BY MOUTH ONCE DAILY IN THE MORNING 30 Capsule 5 OneTouch Verio In Vitro Strip (Glucose Blood) Use up to 4 times a day E11.9 in case of dexcom failure 100 Strip 11 Dexcom G7 Sensor Use as directed. (From [facility]) Levothyroxine Sodium 200 MCG Oral Tablet (Levoxyl) TAKE 1 TABLET BY MOUTH ONCE DAILY IN THE [id number] Tablet 5 Magnesium Oxide 400 MG Oral Tablet TAKE 1 TABLET BY MOUTH IN THE MORNING AND AT BEDTIME 60 Tablet 5 Gabapentin 300 MG Oral Capsule (Neurontin) TAKE 2 CAPSULES BY MOUTH IN THE MORNING, NOON AND BEDTIME] 168 Capsule 5 Omeprazole 20 MG Oral Capsule Delayed Release (PriLOSEC) TAKE 1 CAPSULE BY MOUTH ONCE DAILY IN THE MORNING 30 Capsule 3 Mounjaro 5 MG/0.5ML Subcutaneous Solution Pen-injector (Tirzepatide) Inject 5 mg under the skin once a week. (Patient taking differently: Inject 5 mg under the skin once a week. ) 2 mL 11 BD Pen Needle Short U/F 31G X 8 MM (Insulin Pen Needle) use five times daily 500 Each 3 Baclofen 10 MG Oral Tablet (Lioresal) [...] MORNING AND AT BEDTIME 60 Tablet 5 rOPINIRole HCl 2 MG Oral Tablet (Requip) Take 1 Tablet by mouth at bedtime. 30 Tablet 5 Potassium Chloride Ayleen ER 20 MEQ Oral Tablet Extended Release TAKE 1 TABLET BY MOUTH IN THE MORNING AND AT BEDTIME 60 Tablet 5 DULoxetine HCl 60 MG Oral Capsule Delayed Release Particles (Cymbalta) TAKE 1 CAPSULE BY MOUTH ONCEDAILY IN THE MORNING 30 Capsule 5 Triamcinolone Acetonide 0.5 % External Cream (Aristocort) Apply topically to affected area 2 times a day. Chest rash 60 g 0 Apixaban 2.5 MG Oral Tablet (Eliquis) Take 1 Tablet by mouth in the morning and 1 Tablet before bedtime. 60 Tablet 11 Furosemide 40 MG Oral Tablet (Lasix) TAKE 1 AND 1/2 TABLETS BY MOUTH IN THE MORNING AND AT BEDTIME 84 Tablet 5 DULoxetine HCl 30 MG Oral Capsule Delayed Release Particles (Cymbalta) TAKE 1 CAPSULE BY MOUTH ONCEDAILY IN THE MORNING 30 Capsule 5 Ferrous Sulfate 325 (65 Fe) MG Oral Tablet (Feosol) Take 1 Tablet by mouth in the morning and 1 Tablet before bedtime. Dicyclomine HCl 20 MG Oral Tablet (Bentyl) Take 1 Tablet by mouth 4 times a day as needed for Cramping. 180 Tablet 3 traMADol HCl 50 MG Oral Tablet (Ultram) Take 1 Tablet by mouth every 8 hours as needed for Pain, Severe. 90 Tablet 0 oxyCODONE HCl 5 MG Oral Tablet (Oxy IR) Take 1 Tablet by mouth every 6 hours as needed for Pain, Severe. 45 Tablet 0 clonazePAM 0.5 MG Oral Tablet (KlonoPIN) Take 1 Tablet by mouth in the morning and 1 Tablet at noonand 1 Tablet before bedtime. 90 Tablet 0 traZODone HCl 50 MG Oral Tablet (Desyrel) Take 1 Tablet by mouth at bedtime. 30 Tablet 5 No current facility-administered medications for this visit. Family History Problem Relation Age of Onset [...] level: Not on file Occupational History Occupation: [employer] Employer: [employer] Occupation: [employer] Employer: [employer] 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 Chest bilateral clear to auscultation CVS S1-S2 regular Abdomen is soft nontender obese Extremities shows trace edema obesity related Skin no rashes noted Recent Labs Units 12/22/23 1139 11/07/23 1643 10/13/23 1113 SODIUM - [facility] mmol/L 140 136 137 POTASSIUM - [facility] mmol/L 4.5 4.3 4.0 CHLORIDE - [facility] mmol/L 96* 94* 98 CO2 - [facility] mmol/L 35* 29 28 BUN - [facility] mg/dL 27* 22* 22* CREATININE - [facility] mg/dL 1.7* 1.6* 1.7* ESTIMATED GLOMERULAR FILTRATION RATE - [facility] mL/min 32* 34* 32* Recent Labs Units 12/22/23 1139 11/07/23 1643 10/13/23 1113 HGB g/dL 11.8* 11.2* 10.4* FERRITIN - [facility] ng/mL 77 -- 36 TRANSFERRIN SATURATION PERCENT - [facility] % 10* -- 9* Recent Labs Units 12/22/23 1139 11/07/23 1643 10/13/23 1113 03/17/23 1237 02/11/23 1131 11/01/22 1413 08/13/22 0902 07/02/22 1511 05/12/22 1504 01/07/22 1156 CALCIUM - [facility] mg/dL 9.4 9.3 9.4 < > -- 9.7 < > 9.1 < > 9.4 PHOSPHORUS - [facility] mg/dL -- -- -- -- 3.9 -- -- -- -- 3.0 25-HYDROXY VITAMIN D - [facility] ng/mL -- -- -- -- -- 34 -- 29 -- -- < > = values in this interval not displayed. Recent Labs Units 12/22/23 1139 09/20/23 0000 07/25/23 0000 HEMOGLOBIN A1C - [facility] % 7.2* -- -- HEMOGLOBIN, [id number] LAB -- 7.5* 9.2* Recent Labs Units 08/05/23 1406 11/01/22 1418 01/07/22 1206 ALBUMIN / CREATININE RATIO, URINE - [facility] mg/g Creat 14 <17 <16 ASSESSMENT/PLAN: Stage 3b chronic kidney disease (HCC) (Primary) Patient with the CKD stage 3 to 4 likely due to diabetic nephropathy and chronic NSAID use. She is no longer taking NSAIDs. She can use Tylenol for pain control. She knows to limit salt and keep wellhydrated but not more than 2 L of water daily. Repeat labs as below. Reviewed hospital admission for urosepsis, ELSIE and rt Hydronephrosis and S/p rt ureteric stent. BP runs low and not on any meds. Labs done was reviewed and shows creatinine of 1.7 GFR of 32 which is stable . This is back to baseline. During this recent hospital admission she did have a peak creatinine of 2.4. Hyperparathyroidism, secondary renal (HCC) - BASIC METABOLIC PANEL - PTH - 25-HYDROXY VITAMIN D - PHOSPHORUS Vitamin D deficiency - 25-HYDROXY VITAMIN D Chronic diastolic congestive heart failure (HCC) Her symptoms are controlled on diuretics. Continue current dose of Lasix 60 mg twice daily. Adjusted by Cardiology. HTN, goal below 130/80 Blood pressure is on the low side. Not on Wili or Arb because of low blood pressure but she does take Lasix 60 twice daily. Follow Up: Return in about 6 months (around 06/27/2024) for Clinic Visit. | For: Clinic Visit Erik Lenz MD documented in this encounter Nursing Notes * Keyona Dickey LPN - 12/27/2023 10:36 AM EDT Chief Complaint Patient presents with Outpatient Testing Hospital Follow-Up Was in [facility] and had a kidney infection. Pt has stent in kidney. documented in this encounter Plan of Treatment Upcoming Encounters Date Type Department Care Team (Late st Contact Info) Description 12/30/2023 1:00 PM EDT Home Visit Care Coordination and Integration [address] [place] [address] Angi Hagen, Community Health Supervisor Quality Control [address] [place] [address] 01/06/2024 11:00 AM EDT Home Visit Care Coordination and Integration [address] [place] [address] Angi Hagen, Community Health Supervisor Quality Control [address] [place] [address] 01/06/2024 1:00 PM EDT Office Visit Family Practice [address] [facility] [address] [place] [phone] Galdino Andujar, DO [address] [facility] [place] [address] 01/11/2024 3:30 PM EDT Office Visit Cardiology, [facility] [address] [place] [address] Marjorie Powell PA-C [address] [place] [address] 01/19/2024 9:00 AM EDT Office Visit Family Practice 65 [facility] [address] [place] [address] Galdino Andujar, DO [address] [place] [address] 02/14/2024 1:00 PM EDT Nurse Only Ancillary 65 [facility] [address] [place] [address] College, Nurse Annual Wellness Visit [address] [place] [address] 09/12/2024 11:00 AM EST Office Visit Nephrology, [address] [place] [address] Erik Lenz MD 200 [facility] [place] [address] Pending Results Name Type Priority Associated Diagnoses Date /Time BASIC METABOLIC PANEL Lab Routine Hyperparathyroidism, secondary renal (HCC) 12/27/2023 10:28 AM EDT PTH Lab Routine Hyperparathyroidism, secondary renal (HCC) 12/27/2023 10:28 AM EDT 25-HYDROXY VITAMIN D Lab Routine Vitamin D deficiency Hyperparathyroidism, secondary renal (HCC) 12/27/2023 10:28 AM EDT PHOSPHORUS Lab Routine Hyperparathyroidism, secondary renal (HCC) 12/27/2023 10:28 AM EDT Scheduled Procedures Name Priority Associated Diagnoses Date/Ti me COLONOSCOPY FLEXIBLE PROXIMAL DIAGNOSTIC Recall Colon cancer screening Health Maintenance Due Date Last Done Comments Cologuard 2000 Fecal Occult Blood Test 2000 Sigmoidoscopy 2000 CKD PHOS USE SMARTSET 88416 02/12/202401/24, 01/07/2022, 03/12/2021, Additional history exists Mammogram 04/21/2024 04/21/2023, 01/24, 10/01/2020, Additional history exists Diabetic Eye Exam 05/09/2024 05/09/2023, , 05/24/2022, Additional history exists GFR 06/23/2024 12/22/2023, 10/27, 10/13/2023, Additional history exists HbA1c 06/23/2024 12/22/2023, 08/27, 07/25/2023, Additional history exists Albumin/Creatinine Ratio 08/05/2024 023, 11/01/2022, 01/07/2022, Additional history exists Diabetic Foot Exam 10/04/2024 10/04/2023, 0 11/01/2022, 01/07/2022, Additional history exists Depression Screening 10/20/2024 10/20/2023, 06/12/20 18 CKD HGB USE SMARTSET 33954 12/21/202412/21, 12/22/2023, 11/07/2023, Additional history exists TSH 12/21/2024 12/22/2023, 09/26, 11/01/2022, Additional history exists Colonoscopy 02/17/2026 02/18/2016, [...] Stage 3b chronic kidney disease (HCC)- Primary Hyperparathyroidism, secondary renal (HCC) Secondary hyperparathyroidism (of renal origin) Vitamin D deficiency Unspecified vitamin D deficiency Chronic diastolic congestive heart failure (HCC) Chronic diastolic heart failure HTN, goal below 130/80 Unspecified essential hypertension documented in this encounter Advance Directives Documents on File Type Date Recorded Patient Senior Mechanical Development Engineer Expl anation POLST 03/19/2020 4:25 PM [...] the patient have Health Care Power of Technical Testing Engineer? No Healthcare Agents on File Name Relationship Healthcare Agent Relationship Communication Galdino Camp Other - (no specific identity) Health Care Power of Technical Testing Engineer Princess Allen Other - (no specific identity) Health Care Power of Technical Testing Engineer Care Teams It Project Manager Relationship Specialty Start Date End Date Galdino Andujar DO [address] [place] [address] PCP - General Internal Medicine 01/07/22 documented as of this encounter
--- OUTSIDE RECORDS SUMMARY | 2024-01-16 05:13 | External Medical Summary | Summary of Care ---
Author Name Unknown Organization [facility] Address [address] [place] [address] Phone [phone] Care Team Providers Care Induction Coordination Power Engineer Name Role Phone ZiaandrewsLexii DO Primary Care Provider Reason for Visit * Reason Comments eRx-Medication Refill Encounter Details Date Type Department Care Team (Late st Contact Info) Description 12/29/2023 Refill [facility], [facility] [address] [place] [id number] Lucia Garcia CRNP [address] [place] [id number] Allergies Active Allergy Reactions Criticality Noted Date [...] ([facility]) INJECT 50 UNITS UNDER THE [...] [facility]Chronic diastolic congestive heart failure ([facility]) TAKE 1 TABLET BY MOUTH IN THE MORNING AND AT BEDTIME 60 Tablet 5 3 Active DULoxetine HCl 60 MG Oral Capsule Delayed Release Particles (Cymbalta)Indicati ons:Fibromyalgia,M ajor depressive disorder, recurrent, moderate ([facility]) TAKE 1 CAPSULE BY MOUTH [...] daily in the morning 30 Capsule 5 4 Active Cholecalciferol 25 MCG (1000 UT) Oral Capsule TAKE 1 TABLET BY MOUTH ONCE DAILY IN THE MORNING 30 Capsule 5 3 12/30/19 24 Discontinued documented as of [...] rx for atorvastatin and plavix to picker box operator at pharmacy. 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 Atherosclerosis of [place] co ronary artery without angina pectoris 12/31/2021 [...] Assessment & Plan: Home PT to start [place] filter in place 08/19/2014 History of pulmonary [...] evidently given by vascular, has to picker box operator rx documented as of this encounter [...] mRNA, LNP-s, No Pre serve, 2-Dose Series (Adaptive TCR) 01/08/2021,12/18/2020 COVID-19, LNP-s, No Preserve , Navarro-sucrose, Ages 12+ (Adaptive TCR) 2022,10/01/2021 COVID-19, MRNA-LNP, 23-24, P F, 30 MCG/0.3 mL, 12 YRS AND ABOVE, IM (PFIZER-Comirnaty) 07/26/2023 Pneumococcal Conjugate Vacci ne, 20-valent ([id number]) 03/12/2022 Pneumococcal Polysaccharide PPV23 (Pneumovax) 08/22/2009,06/15/2006 Season [...] Encounter - Lexii Andujar DO - 12/30/2023 7:54 AM EDTSigned Prescriptions: Disp Refills Cholecalciferol 25 MCG (1000 UT) Oral Caps*30 Cap*5 Sig: Take 1 capsule by mouth daily in the morningAuthorizing Provider: LEXII ANDUJAR * Telephone Encounter - Mattie Mao LPN - 12/29/2023 3:47 PM EDT Did you pend patient's preferred pharmacy and medication before forwarding?yes Pharmacy: [facility] [address] Pending Prescriptions: Disp Refills Cholecalciferol 25 MCG (1000 UT) Oral Cap*30 Cap*5 Sig: Take 1 capsule by mouth daily in the morning Last Visit: Visit date not found (in office), 07/12/2023 (telemedicine) Next Visit: Visit date not found If no future appointments scheduled, and last appointment is greater than a year ago, please schedule patient for a follow-up appointment Last date the medication was ordered: 05/22/23 Is this request for a controlled substance?No [...] AM * Telephone Encounter - Pop Greer [facility] - 12/29/2023 3:27 PM EDT Pending Prescriptions: Disp Refills Cholecalciferol 25 MCG (1000 UT) Oral Caps*30 Cap*5 Sig: Take 1capsule by mouth daily in the morning documented in this encounter Plan of Treatment Upcoming Encounters Date Type Department Care Team (Late st Contact Info) Description 12/30/2023 1:00 PM EDT Home Visit [facility] [address] [place] [address] Angi Hagen, Community Health Operational Communication Chief [address] [place] [address] 01/06/2024 11:00 AM EDT Home Visit [facility] Integration [address] [place] [address] Angi Hagen, Community Health Operational Communication Chief [address] [place] [address] 01/06/2024 1:00 PM EDT Office Visit Family Practice [address] [facility] [address] [place] [address] Lexii Andujar, DO [address] [facility] [place] [address] 01/11/2024 3:30 PM EDT Office Visit [facility], [facility] [address] Marjorie Powell PA-C [address] [facility] [address] 01/19/2024 9:00 AM EDT Office Visit Family Practice [address] [facility] [address] [place] [address] Lexii Andujar, DO [address] [facility] [place] [address] 02/14/2024 1:00 PM EDT Nurse Only Ancillary 65 [facility] [address] [place] [address] College, Nurse Annual Wellness Visit [address] [place] [address] 09/12/2024 11:00 AM EST [facility] [address] [place] [address] Erik Lenz MD [address] [place] [address] Scheduled Procedures Name Priority Associated Diagnoses Date/Ti [...] 10/20/2023, 06/12/20 18 CKD HGB USE SMARTSET 15836 12/21/202412/21, 12/22/2023, 11/07/2023, Additional history exists TSH 12/21/2024 12/22/2023, 09/26, 11/01/2022, Additional history exists CKD PHOS USE SMARTSET 12634 12/26/2024 04/0 10/2023, 02/11/2023, 01/07/2022, Additional history [...] on File Type Date Recorded Patient Computer Numerical Control Operator Expl anation POLST 03/19/2020 4:25 PM [...] the patient have Health Care Power of Die Sizer? No Healthcare Agents on File Name Relationship Healthcare Agent Relationship Communication Lexii Camp Other - (no specific identity) Health Care Power of Die Sizer Princess Allen Other - (no specific identity) Health Care Power of Die Sizer Care Teams Induction Coordination Power Engineer Relationship Specialty Start Date End Date Lexii Andujar DO [address] [place] [address] PCP - General Internal Medicine 01/07/22 documented as of this encounter
--- OUTSIDE RECORDS SUMMARY | 2024-01-16 05:14 | External Medical Summary ---
Author Name Unknown Address Unknown Organization [id number]:[facility] [place] [address] [place] [address] Laboratory Report Ordering Provider Test Date Status JAG SHULTZ 12/22/2023 11:39:05 Final Observation Date Value Abnormality Reference (Units ) Status HbA1C 12/22/2023 11:39:05 7.2 Above high normal 4. 0-5.6 (%) Final The use of HbA1c to monitor glycemic status is based on normal hemoglobin and HbA composition. This test should not be used in patients with abnormal hemoglobin that affects the half life of the red blood cell or the in vivo glycation rates. Glucose, estimated average 12/22/2023 11:39:05 160 Above high normal <126 (mg/dL) Adrián astorga Performing Location [facility] [place] [address] [place] [address]
--- OUTSIDE RECORDS SUMMARY | 2024-01-16 05:14 | External Medical Summary ---
Author Name Unknown Address Unknown Organization [id number]:[facility] [place] [address] [facility] [address] Laboratory Report Ordering Provider Test Date Status JAG SHULTZ 12/22/2023 11:39:05 Final Observation Date Value Abnormality Reference (Units ) Status WBC, Total 12/22/2023 11:39:05 9.99 4.00-10.80 (K/uL) Final RBC 12/22/2023 11:39:05 4.30 3.85-5.15 (M/uL) Final Hemoglobin 12/22/2023 11:39:05 11.8 Below low normal 12.0-15.3 (g/dL) Final HCT 12/22/2023 11:39:05 39.9 36.0-45.2 (%) Final MCV 12/22/2023 11:39:05 92.8 81.5-97.5 (fL) Final MCH 12/22/2023 11:39:05 27.4 27.0-34.0 (pg) Final MCHC 12/22/2023 11:39:05 29.6 32.0-36.0 (g/dL) Final RDW 12/22/2023 11:39:05 16.4 11.5-15.5 (%) Final Platelets 12/22/2023 11:39:05 351 140-400 (K/uL) Final MPV 12/22/2023 11:39:05 11.0 6.6-11.1 (fL) Final Nucleated erythrocytes/100 leukocytes [Ratio] in Blood by Automated count 12/22/2023 11:39:05 0 <=0 (/100 WBCs) Final Performing Location [facility] [place] [address] [place] [address]
--- OUTSIDE RECORDS SUMMARY | 2024-01-16 05:14 | External Medical Summary ---
Author Name Unknown Address Unknown Organization [id number]:[facility] [place] - [address] [place] [address] [place] [address] Laboratory Report Ordering Provider Test Date Status TORRES HOPSON 12/22/2023 11:39:05 Final Observation Date Value Abnormality Reference (Units ) Status TSH 12/22/2023 11:39:05 1.36 0.27-4.20 (uIU/mL) Final Performing Location [facility] [place] - [address] [place] [address]
--- OUTSIDE RECORDS SUMMARY | 2024-01-16 05:14 | External Medical Summary | Summary of Care ---
Author Name Unknown Organization [facility] Address [address] [place] [address] Phone [phone] Care Team Providers Care Agronomy Specialist Name Role Phone Galdino Andujar DO Primary Care Provider [phone] Reason for Visit * Reason Onset Date Comments Follow Up Hospital Follow-Up 12/22/2023 Encounter Details Date Type Department Care Team (Latest Contact Info) Description 12/22/2023 10:40 AM EDT Office Visit Family Practice [address] [place] [address] [place] [address] aGldino Andujar DO [address] [place] [address] Fall, subsequent encounter*; Ambulatory dysfunction; ELSIE (acute kidney injury) ([facility]); 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 3b chronic kidney disease ([facility]); Type 2 diabetes mellitus with stage 3b chronic kidney disease, with long-term current use of insulin ([facility]); Spinal stenosis of lumbar region without neurogenic claudication; Lumbar radiculopathy; Hydronephrosis of right kidney; Chronic hypoxemic respiratory failure ([facility]); ILD (interstitial lung disease) ([facility]); Body mass index (BMI) of 45.0 to 49.9 in adult ([facility]); ELISSA (obstructive sleep apnea); Essential hypertension with goal blood pressure less than 140/90; History of pulmonary embolus (PE); Fibromyalgia; Restless legs syndrome; Gastroesophageal reflux disease with esophagitis without hemorrhage; Heparin induced thrombocytopenia (HIT) ([facility]); Primary osteoarthritis of both knees; Iron deficiency; Anxiety state; [place] filter in place; Recurrent deep vein thrombosis (DVT) of both lower extremities (HCC); Hospital discharge follow-up; Postsurgical hypothyroidism Allergies Active Allergy Reactions Criticality Noted Date [...] as of this encounter (statuses as of 12/24/2023) Medications Medication Sig Dispensed Refills Start Date [...] of 7.0%-8.0% ([facility]) Inject 8 units with breakfast and 8units [...] use of insulin ([facility]) Use up to 4 times a day E11.9 in case of dexcom failure 100 Strip 11 3 Active Dexcom G7 Sensor Use as directed. (From [facility]) 0 3 Active Levothyroxine Sodium 200 MCG Oral Tablet (Levoxyl)Indication s:Postsurgical hypothyroidism TAKE 1 TABLET BY MOUTH ONCE DAILY IN THE MORNING 30 Tablet 5 3 Active Magnesium Oxide 400 MG Oral TabletIndications: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, NYHA class 1 and CKD stage 3 ([facility]),Chronic diastolic congestive heart failure (HCC) TAKE 1 [...] goal of 7.0%-8.0% ([facility]) INJECT 50 UNITS UNDER THE SKIN IN THE EVENING 60 mL 3 3 Active Atorvastatin Calcium 20 MG Oral Tablet (Lipitor) Take 1 Tablet by mouth in the morning. Prescribed by Carmen Minarchick PA-C. 0 Active Ondansetron HCl 4 MG [...] at bedtime. 30 Tablet 5 4 Active traZODone HCl 100 MG Oral Tablet (Desyrel)Indication s:Primary insomnia TAKE 1 TABLET BY MOUTH AT BEDTIME 30 Tablet 5 3 12/22/19 24 Discontinu ed(Medicat ion/Dose Changed) oxyCODONE HCl 5 MG Oral Tablet (Oxy IR)Indications:Spin al stenosis of lumbar region without neurogenic claudication,Lumbar radiculopathy Take 1 Tablet by mouth every 6 hours as needed for Pain, Severe. 45 Tablet 0 4 12/22/19 24 Discontinu ed(Refill) clonazePAM 0.5 MG Oral Tablet (KlonoPIN)Indicatio ns:Restless legs syndrome,Anxiety state TAKE 1 TABLET BY MOUTH IN THE MORNING AND AT BEDTIME 60 Tablet 0 4 12/22/19 24 Discontinu ed(Refill) documented as of this encounter (statuses as of 12/24/2023) Active Problems Problem Noted Date Diagnosed Date [...] reports upcoming carotid surgery at [facility]. 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 Atherosclerosis of tejon co ronary artery without angina pectoris 12/31/2021 [...] Assessment & Plan: Home PT to start [place] filter in place 08/19/2014 History of [...] as of this encounter (statuses as of 12/24/2023) Resolved Problems Problem Noted Date Diagnosed Date [...] as of this encounter (statuses as of 12/24/2023) Immunizations Name Administration Dates Next Due COVID-19 mRNA, LNP-s, No Pre serve, 2-Dose Series ([employer]) 01/08/2021,12/18/2020 COVID-19, LNP-s, No Preserve , Navarro-sucrose, Ages 12+ (Pfizer) 2022,10/01/2021 COVID-19, MRNA-LNP, 23-24, P F, 30 MCG/0.3 mL, 12 YRS AND ABOVE, IM (PFIZER-Comirnaty) 07/26/2023 Pneumococcal Conjugate Vacci ne, 20-valent ([id number]) 03/12/2022 Pneumococcal Polysaccharide PPV23 (Pneumovax) 08/22/2009,06/15/2006 Season [...] Sign Reading Time Taken Comments Blood Pressure 138/76 12/22/2023 10:41 AM EDT Pulse 88 12/22/2023 10:41 AM EDT Temperature 36.4 C (97.6 F) 12/22/2023 1 0:41 AM EDT Respiratory Rate 14 12/22/2023 10:4 1 AM EDT Oxygen Saturation 95% 12/22/2023 10: 41 AM EDT Inhaled Oxygen Concentration - - Weight 124.8 kg (275 lb 3.2 oz) 024 10:41 AM EDT Height 165.1 cm (5' 5") 12/22/2023 10:4 1 AM EDT Body Mass Index 45.8 12/22/2023 10:41 AM EDT documented in this encounter Progress Notes * Galdino Andujar, - 12/22/2023 11:23 AM EDT SUBJECTIVE: Stephanie Camp is a 68 year old female. Chief Complaint Patient presents with Follow Up Hospital Follow-Up Recent Admission: Patient was recently admitted to [facility]. The date of discharge was 12/15/2023. Discharge report received and reviewed. HPI: Patient is a 68 year old female with a history of DM type II, CKD stage III, Diastolic CHF, Transcarotid Artery Revascularization done on 09/09/2023, chronic hypoxic respiratory failure, HTN, recurrent DVT, IVC filter, Hyperlipidemia, GERD, Lumbar Disc Disease, Restless Leg Syndrome, Sleep Apnea onCPAP, Heparin Induced Thrombocytopenia, and Ambulatory Dysfunction that is seen for hospital followup. The patient was admitted to [facility] due to fall and lower extremity weakness. Patient required Cystoscopy and right ureter stent placement on 11/26/2023 due to persistent right hydronephrosis. She required stay in ICU due to sepsis from urinary tract. Patient was treated with Physical Therapy and tra nsferred to SNF on 12/07/2023 Fatigue is unchanged. Chronic shortness of breath is stable. No chest pain is present. Weight continues to decrease. SHe has worsening anxiety. Patient Active Problem List Diagnosis Code Dyslipidemia E78.5 Postsurgical hypothyroidism E89.0 ELISSA (obstructive sleep apnea) G47.33 Venous insufficiency I87.2 Essential hypertension with goal blood pressure less than 140/90 I10 History of pulmonary embolus (PE) Z86.[address] [place] [address] Z95.828 Fibromyalgia M79.7 Abnormality of gait R26.9 Restless legs syndrome G25.81 Gastroesophageal reflux disease with esophagitis K21.00 Controlled substance agreement signed Z79.899 Lumbar radiculopathy M54.16 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 3b chronic kidney disease ([facility]) I13.0, I50.32, N18.32 Hyperparathyroidism, secondary renal ([facility]) N25.81 Vasculitis ([facility]) I77.6 Primary osteoarthritis of left knee M17.12 Spinal stenosis of lumbar region without neurogenic claudication M48.061 Heparin induced thrombocytopenia (HIT) ([facility]) D75.829 Atherosclerosis of tejon coronary artery without angina pectoris I25.10 Carotid artery stenosis, asymptomatic, right I65.21 Encounter for long-term (current) use of other medications Z79.899 Type 2 diabetes mellitus with hemoglobin A1c goal of less than 8.0% ([facility]) E11.9 Recurrent deep vein thrombosis (DVT) of both lower extremities ([facility]) I82.403 Chronic hypoxemic respiratory failure ([facility]) J96.11 Chronic kidney disease, stage 3b ([facility]) N18.32 ILD (interstitial lung disease) ([facility]) J84.9 Moderate episode of recurrent major depressive disorder ([facility]) F33.1 Primary osteoarthritis of both knees M17.0 Type 2 diabetes mellitus with stage 3b chronic kidney disease, with long-term current use of insulin ([facility]) E11.22, N18.32, Z79.4 Anxiety state F41.1 Sacroiliitis, not elsewhere classified ([facility]) M46.1 DM peripheral angiopathy ([facility]) E11.51 Body mass index (BMI) of 45.0 to 49.9 in adult ([facility]) Z68.42 Morbid (severe) obesity due to excess calories ([facility]) E66.01 Iron deficiency E61.1 Hydronephrosis of right kidney N13.30 Current Outpatient Medications Medication Sig Dispense Refill [...] TABLET BY MOUTH ONCE DAILY IN THE [id number] Tablet 5 Magnesium Oxide 400 MG Oral [...] once a week. ) 2 mL 11 Baclofen 10 MG Oral Tablet (Lioresal) Take 1 Tablet by mouth 2 times a day as needed for Muscle spasms. 60 Tablet 5 Aspirin 81 MG Oral Tablet Delayed Release Take 1 Tablet by mouth in the morning. Atorvastatin Calcium 20 MG Oral Tablet (Lipitor) [...] ONCEDAILY IN THE MORNING 30 Capsule 5 Apixaban 2.5 MG Oral Tablet (Eliquis) Take [...] the morning and 1 Tablet before bedtime. oxyCODONE HCl 5 MG Oral Tablet (Oxy IR) Take 1 Tablet by mouth every 6 hours as needed for Pain, Severe. 45 Tablet 0 Dicyclomine HCl 20 MG Oral Tablet (Bentyl) Take 1 Tablet by mouth 4 times a day as needed for Cramping. 180 Tablet 3 clonazePAM 0.5 MG Oral Tablet (KlonoPIN) TAKE 1 TABLET BY MOUTH IN THE MORNING AND AT BEDTIME 60 Tablet 0 traMADol HCl 50 MG [...] Dexcom G7 Sensor Use as directed. (From [facility]) BD Pen Needle Short U/F 31G X 8 MM (Insulin Pen Needle) use five times daily 500 Each 3 Plavix 75 MG Oral Tablet Take 1 Tablet by mouth daily. Tresiba FlexTouch 100 UNIT/ML Subcutaneous Solution Pen-injector (Insulin Degludec) INJECT 50 UNITSUNDER THE SKIN IN THE EVENING 60 mL 3 Triamcinolone Acetonide 0.5 % External Cream (Aristocort) Apply topically to affected area 2 times a day. Chest rash 60 g 0 No current facility-administered medications for this visit. [...] Other (Please comment) Passed out OBJECTIVE: BP 138/76 | Pulse 88 | Temp 36.4 C (97.6 F) (Tympanic) | Resp 14 | Ht 1.651 m (5' 5") | Wt 124.8 kg (275 lb 3.2 oz) | LMP 03/11/2003 | SpO2 95% | BMI 45.80 kg/m | BSA 2.39 m REVIEW OF SYSTEMS: Review of Systems Constitutional: Positive for fatigue and unexpected weight change. Negative for appetite change, chills and fever. HENT: Negative for congestion, sore throat and trouble swallowing. Respiratory: Positive for shortness of breath. Negative for cough and wheezing. Cardiovascular: Positive for leg swelling. Negative for chest pain and palpitations. Gastrointestinal: Negative for abdominal pain, blood in stool, constipation, diarrhea, nausea and vomiting. Genitourinary: Negative for dysuria, frequency and hematuria. Musculoskeletal: Positive for back pain, gait problem and myalgias. Chronic bilateral knee pain continues to worsen Neurological: Negative for dizziness, syncope and headaches. Psychiatric/Behavioral: Positive for decreased concentration and dysphoric mood. Negative for self-injury, sleep disturbance and suicidal ideas. The patient is nervous/anxious. PHYSICAL EXAM: BP 138/76 | Pulse 88 | Temp 36.4 C (97.6 F) (Tympanic) | Resp 14 | Ht 1.651 m (5' 5") | Wt 124.8 kg (275 lb 3.2 oz) | LMP 03/11/2003 | SpO2 95% | BMI 45.80 kg/m | BSA 2.39 m Physical Exam Vitals and nursing note [...] alert. Mental status is at baseline. Motor: Weakness present. Gait: Gait abnormal. Psychiatric: Mood and Affect: Mood is depressed. Affect is flat. ASSESSMENT/PLAN Fall, subsequent encounter (Primary) Continue Physical Therapy Ambulatory dysfunction ELSIE (acute kidney injury) ([facility]) Resolved post right Ureter stent 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 3b chronic kidney disease (HCC) Continue Furosemide Type 2 diabetes mellitus with stage 3b chronic kidney disease, with long-term current use of insulin (HCC) Continue Tresiba, Novolog,and Monjaro Increase Monjaro as tolerated Weight is coming down Spinal stenosis of lumbar region without neurogenic claudication Continue Gabapentin, and Oxycodone Lumbar radiculopathy Hydronephrosis of right kidney Stent change per Urology in 3 months Chronic hypoxemic respiratory failure (HCC) Continue Oxygen ILD (interstitial lung disease) ([facility]) Body mass index (BMI) of 45.0 to 49.9 in adult (HCC) Weight coming down ELISSA (obstructive sleep apnea) Essential hypertension with goal blood pressure less than 140/90 History of pulmonary embolus (PE) Fibromyalgia Restless legs syndrome Continue Ropinirole Gastroesophageal reflux disease with esophagitis without hemorrhage Continue Omeprazole Heparin induced thrombocytopenia (HIT) ([facility]) Primary osteoarthritis of both knees Iron deficiency Anxiety state Decrease Trazodone to 50 mg daily Increase Clonazepam to 0.5 mg three times a day [place] filter in place Recurrent deep vein thrombosis (DVT) of both lower extremities ([facility]) Hospital discharge follow-up - DISCH MED RECON CUR MED LIS Follow Up: Return in about 2 weeks (around 01/05/2024), or if symptoms worsen or fail to improve. Galdino Andujar DO documented in this encounter Nursing Notes * Shira Gross LPN - 12/22/2023 10:40 AM EDT Here for post hospital follow up, post fall. documented in this encounter Miscellaneous Notes * Result Encounter Note - Shira Gross LPN - 12/23/2023 2:25 PM EDT See telephone encounter. documented in this encounter Plan of Treatment Upcoming Encounters Date Type Department Care Team (Late st Contact Info) Description 12/27/2023 10:40 AM EDT Office Visit Nephrology, [facility] [address] [place] [address] Erik Lenz MD [address] [place] [address] 12/30/2023 1:00 PM EDT Home Visit Care Coordination and Integration [address] [facility] [place] [address] Angi Hagen, [facility] [employer] Technician [address] [place] [address] 01/06/2024 11:00 AM EDT Home Visit Care Coordination and Integration [address] [facility] [place] [address] Angi Hagen, [employer] Technician [address] [place] [address] 01/06/2024 1:00 PM EDT Office Visit Family Practice [address] [facility] [address] [place] [place] [address] Galdino Andujar DO [address] [place] [address] 01/11/2024 3:30 PM EDT Office Visit Cardiology, [facility] [address] [place] [address] Marjorie Powell PA-C [address] [place] [address] 01/19/2024 9:00 AM EDT Office Visit Family Practice [address] [facility] [address] [facility] [place] [address] Galdino Andujar, [address] [place] [address] 02/14/2024 1:00 PM EDT Nurse Only Ancillary [address] [facility] [address] [place] [place] [address] College, Nurse Annual Wellness Visit [address] [place] [address] Scheduled Procedures Name Priority Associated Diagnoses Date/Ti me COLONOSCOPY FLEXIBLE PROXIMAL DIAGNOSTIC Recall Colon cancer screening Health Maintenance Due Date Last Done Comments Cologuard 2000 Fecal Occult Blood Test 2000 Sigmoidoscopy 2000 CKD PHOS USE SMARTSET 07527 02/12/202401/24, 01/07/2022, 03/12/2021, Additional history exists Mammogram [...] 10/20/2023, 06/12/20 18 CKD HGB USE SMARTSET 53077 12/21/202412/21, 12/22/2023, 11/07/2023, Additional history exists TSH [...] Date/Time Associated Diagnosis Comments DIFFERENTIAL, AUTOMATED Routine 12/22/2023 11:39 AM EDT ELSIE (acute kidney injury) (HCC) Hydronephrosis of right kidney Iron deficiency TSH WITH FREE T4 IF INDICATED Routine 12/22/2023 11:39 AM EDT Postsurgical hypothyroidism HEMOGLOBIN A1C Routine 12/22/2023 11:39 AM EDT Type 2 diabetes mellitus with stage 3b chronic kidney disease, with long-term current use of insulin (HCC) COMPREHENSIVE METABOLIC PANEL Routine 12/22/2023 11:39 AM EDT ELSIE (acute kidney injury) (HCC) Hydronephrosis of right kidney IRON SCREEN, INCLUDING TIBC Routine 12/22/2023 11:39 AM EDT Iron deficiency CBC Routine 12/22/2023 11:39 AM EDT ELSIE (acute kidney injury) (HCC) Hydronephrosis of right kidney Iron deficiency CBC Routine 12/22/2023 11:39 AM EDT ELSIE (acute kidney injury) (HCC) Hydronephrosis of right kidney Iron deficiency FERRITIN Routine 12/22/2023 11:39 AM EDT Iron deficiency documented in this encounter Results * (ABNORMAL) DIFFERENTIAL, AUTOMATED (12/22/2023 11:39 AM EDT) WBC 9.99 4.00 - 10.80 K/uL 12/22/2023 11:02 PM EDT [facility] Neutrophils % 62.8 40.0 - 75.0 % 12/22/2023 11:02 PM EDT [facility] Lymphocytes % 22.9 18.0 - 42.0 % 12/22/2023 11:02 PM EDT [facility] Monocytes % 6.7 1.0 - 11.0 % 12/22/2023 11:02 PM EDT [facility] Eosinophils % 6.4(H) 0.0 - 6.0 % 12/22/2023 11:02 PM EDT [facility] Basophils % 0.5 0.0 - 2.0 % 12/22/2023 11:02 PM EDT [facility] Immature Granulocytes % 0.7 0.0 - 2.0 % 12/22/2023 11:02 PM EDT [facility] Absolute Neutrophils 6.27 1.80 - 7.70 K/uL 12/22/2023 11:02 PM EDT [facility] Absolute Lymphocytes 2.29 1.00 - 4.80 K/ul 12/22/2023 11:02 PM EDT [facility] Absolute Monocytes 0.67 0.00 - 1.10 K/uL 12/22/2023 11:02 PM EDT [facility] Absolute Eosinophils 0.64 0.00 - 0.70 K/uL 12/22/2023 11:02 PM EDT [facility] Absolute Basophils 0.05 0.00 - 0.20 K/uL 12/22/2023 11:02 PM EDT [facility] Absolute Immature Granulocytes 0.07 0.00 - 0.20 K/uL 12/22/2023 11:02 PM EDT [facility] Blood Venous blood specimen / Unknown Venipuncture / Unknown 12/22/2023 11:39 AM EDT 12/22/2023 11:39 AM EDT Galdino Andujar DO LAB BLOOD ORDERABLES [facility] [address] [place] [address] * (ABNORMAL) CBC (12/22/2023 11:39 AM EDT) WBC 9.99 4.00 - 10.80 K/uL 12/22/2023 11:02 PM EDT [facility] RBC 4.30 3.85 - 5.15 M/uL 12/22/2023 11:02 PM EDT [facility] HGB 11.8(L) 12.0 - 15.3 g/dL 12/22/2023 11:02 PM EDT [facility] HCT 39.9 36.0 - 45.2 % 12/22/2023 11:02 PM EDT [facility] MCV 92.8 81.5 - 97.5 fL 12/22/2023 11:02 PM EDT [facility] MCH 27.4 27.0 - 34.0 pg 12/22/2023 11:02 PM EDT [facility] MCHC 29.6 32.0 - 36.0 g/dL 12/22/2023 11:02 PM EDT [facility] RDW 16.4 11.5 - 15.5 % 12/22/2023 11:02 PM EDT [facility] PLT 351 140 - 400 K/uL 12/22/2023 11:02 PM EDT [facility] MPV 11.0 6.6 - 11.1 fL 12/22/2023 11:02 PM EDT [facility] nRBCs 0 <=0 /100 WBCs 12/22/2023 11:02 PM EDT [facility] Blood Venous blood specimen / Unknown Venipuncture / Unknown 12/22/2023 11:39 AM EDT 12/22/2023 11:39 AM EDT Galdino Andujar DO LAB BLOOD ORDERABLES Performing Organization Address [facility] de Phone Number LABORATORY [facility] [address] [place] [address] * TSH WITH FREE T4 IF INDICATED (12/22/2023 11:39 AM EDT) TSH 1.36 0.27 - 4.20 uIU/mL 12/23/2023 12:15 AM EDT [facility] Blood Venous blood specimen / Unknown Venipuncture / Unknown 12/22/2023 11:39 AM EDT 12/22/2023 11:39 AM EDT Karin Mcmanusrustam [facility] LAB BLOOD ORDERA BLES Performing Organization Address [facility] Phone Number LABORATORY [facility] [address] [place] [address] * FERRITIN (12/22/2023 11:39 AM EDT) Ferritin 77 13 - 150 ng/mL 12/22/2023 11:44 PM EDT [facility] Comment:Postmenopausal women have higher ferritin levels than pre-menopausal women. The above reference interval is based on pre-menopausal women. Blood Venous blood specimen / Unknown Venipuncture / Unknown 12/22/2023 11:39 AM EDT 12/22/2023 11:39 AM EDT Galdino Andujar DO LAB BLOOD ORDERABLES Performing Organization Address [facility] de Phone Number LABORATORY [facility] [address] [place] [address] * (ABNORMAL) IRON SCREEN, INCLUDING TIBC (12/22/2023 11:39 AM EDT) Iron 35 33 - 151 ug/dL 12/22/2023 11:15 PM EDT [facility]ORY [facility] Iron Binding Capacity 363 250 - 425 ug/dL 12/22/2023 11:15 PM EDT [facility] Transferrin Saturation Percent 10(L) 15 - 55 % 12/22/2023 11:15 PM EDT [facility] Blood Venous blood specimen / Unknown Venipuncture / Unknown 12/22/2023 11:39 AM EDT 12/22/2023 11:39 AM EDT Galdino Andujar DO LAB BLOOD ORDERABLES [facility]ORY [facility] [address] [place] [address] * (ABNORMAL) COMPREHENSIVE METABOLIC PANEL (12/22/2023 11:39 AM EDT) BUN 27(H) 6 - 20 mg/dL 12/22/2023 11:15 PM EDT [facility] Creatinine 1.7(H) 0.5 - 1.0 mg/dL 12/22/2023 11:15 PM EDT [facility] Estimated Glomerular Filtration Rate 32(L) >=60 mL/min 12/22/2023 11:15 PM EDT [facility] Comment:eGFR is calculated b ased on the CKD-EPI 2020 equation Sodium 140 135 - 146 mmol/L 12/22/2023 11:15 PM EDT [facility] Potassium 4.5 3.5 - 5.1 mmol/L 12/22/2023 11:15 PM EDT [facility] Chloride 96(L) 98 - 107 mmol/L 12/22/2023 11:15 PM EDT [facility] CO2 35(H) 22 - 32 mmol/L 12/22/2023 11:15 PM EDT [facility] Anion Gap 9 7 - 15 mmol/L 12/22/2023 11:15 PM EDT [facility] Glucose 162(H) 70 - 120 mg/dL 12/22/2023 11:15 PM EDT [facility] Albumin 3.9 3.8 - 5.0 g/dL 12/22/2023 11:15 PM EDT [facility] AST 16 10 - 35 U/L 12/22/2023 11:15 PM EDT [facility] Alkaline Phosphatase 119 35 - 130 U/L 12/22/2023 11:15 PM EDT [facility] Bilirubin, Total 0.3 <=1.2 mg/dL 12/22/2023 11:15 PM EDT [facility] Calcium 9.4 8.4 - 10.2 mg/dL 12/22/2023 11:15 PM EDT LABORATORY C Protein 7.5 6.0 - 8.3 g/dL 12/22/2023 11:15 PM EDT LAB[facility]ORY [facility] ALT 10 10 - 35 U/L 12/22/2023 11:15 PM EDT [facility] Blood Venous blood specimen / Unknown Venipuncture / Unknown 12/22/2023 11:39 AM EDT 12/22/2023 11:39 AM EDT Galdino Andujar DO LAB BLOOD ORDERABLES Performing Organization Address [facility] de Phone Number LABORATORY [facility] [address] [place] [address] * (ABNORMAL) HEMOGLOBIN A1C (12/22/2023 11:39 AM EDT) [facility] Hemoglobin A1C 7.2(H) 4.0 - 5.6 % 12/22/2023 11:32 PM EDT LABORATORY C Comment:The use of HbA1c to monitor glycemic status is based on normal hemoglobin and HbA composition. This test should not be used in patients with abnormal hemoglobin that affects the half life of the red blood cell or the in vivo glycation rates. Estimated Average Glucose 160(H) <126 mg/dL 12/22/2023 11:32 PM EDT LAB[facility]ORY [facility] Blood Venous blood specimen / Unknown Venipuncture / Unknown 12/22/2023 11:39 AM EDT 12/22/2023 11:39 AM EDT Galdino Andujar DO LAB BLOOD ORDERABLES Performing Organization Address [facility] de Phone Number LAB[facility]ATORY [facility] [address] [place], [place] [phone] documented in this encounter Visit Diagnoses Diagnosis Fall, subsequent encounter- Primary Ambulatory dysfunction ELSIE (acute kidney injury) (HCC) Acute kidney failure, unspecified 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 3b chronic kidney disease (HCC) Type 2 diabetes mellitus with stage 3b chronic kidney disease, with long-term current use of insulin (HCC) Spinal stenosis of lumbar region without neurogenic claudication Spinal stenosis, lumbar region, without neurogenic claudication Lumbar radiculopathy Thoracic or lumbosacral neuritis or radiculitis, unspecified Hydronephrosis of right kidney Hydronephrosis Chronic hypoxemic respiratory failure (HCC) Chronic respiratory failure ILD (interstitial lung disease) ([facility]) Postinflammatory pulmonary fibrosis Body mass index (BMI) of 45.0 to 49.9 in adult (HCC) ELISSA (obstructive sleep apnea) Obstructive sleep apnea (adult) (pediatric) Essential hypertension with goal blood pressure less than 140/90 History of pulmonary embolus (PE) Personal history of pulmonary embolism Fibromyalgia Mylagia and myositis, unspecified Restless legs syndrome Restless legs syndrome (RLS) Gastroesophageal reflux disease with esophagitis without hemorrhage 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) 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HIT) Primary osteoarthritis of both knees Primary localized osteoarthrosis, lower leg Iron deficiency Iron deficiency anemia, unspecified Anxiety state Anxiety state, unspecified Frank filter in place Other postprocedural status Recurrent deep vein thrombosis (DVT) of both lower extremities ([facility]) Hospital discharge follow-up Other follow-up examination Postsurgical hypothyroidism documented in this encounter Advance Directives Documents on File Type Date Recorded Patient Lucerne Farmer Expl anation POLST 03/19/2020 4:25 PM [...] the patient have Health Care Power of Swimmer? No Healthcare Agents on File Name Relationship Healthcare Agent Relationship Communication Galdino Camp Other - (no specific identity) Health Care Power of Swimmer Princess Allen Other - (no specific identity) Health Care Power of Swimmer Care Teams Agronomy Specialist Relationship Specialty Start Date End Date Galdino Andujar DO [address] [place] [address] PCP - General Internal Medicine 01/07/22 documented as of this encounter
--- OUTSIDE RECORDS SUMMARY | 2024-01-16 05:14 | External Medical Summary ---
Author Name Unknown Address Unknown Organization K01:[facility] - [address] [facility] [place] [address] Laboratory Report Ordering Provider Test Date Status JAG SHULTZ 12/22/2023 11:39:05 Final Observation Date Value Abnormality Reference (Units ) Status SYNC LEUKOCYTES IN BLOOD BY AUTOMATED COUNT 12/22/2023 11:39:05 9.99 4.00-10.80 (K/uL) Final Segs 12/22/2023 11:39:05 62.8 40.0-75.0 (%) Final Lymphs % 12/22/2023 11:39:05 22.9 18.0-42.0 (%) Final Monos 12/22/2023 11:39:05 6.7 1.0-11.0 (%) Final Eosinophils 12/22/2023 11:39:05 6.4 Above high normal 0.0-6.0 (%) Final Basos 12/22/2023 11:39:05 0.5 0.0-2.0 (%) Final Immature Granulocyte, Percent 12/22/2023 11:39:05 0.7 0.0-2.0 (%) Final Absolute Segs 12/22/2023 11:39:05 6.27 1.80-7.70 (K/uL) Final Lymphs, absolute 12/22/2023 11:39:05 2.29 1.00-4.80 (K/ul) Final Monos, Abs 12/22/2023 11:39:05 0.67 0.00-1.10 (K/uL) Final Eos, Abs 12/22/2023 11:39:05 0.64 0.00-0.70 (K/uL) Final Basos, Abs 12/22/2023 11:39:05 0.05 0.00-0.20 (K/uL) Final Immature Granulocytes, Number 12/22/2023 11:39:05 0.07 0.00-0.20 (K/uL) Final Performing Location LABORATORY [facility] [place] - [address] [facility] [address]
--- OUTSIDE RECORDS SUMMARY | 2024-01-16 05:14 | External Medical Summary ---
Author Name UNSPECIFIED Address Unknown Organization [facility] History of Encounters Reason for Assessment: Start of care - f urther visits planned Inpatient discharge facility: Past 14 Da ys: Discharged From Short Stay Acute Hospital Most Recent Inpatient Discharge Date: Functional Assessment Patient Living Situation: Patient Lives Alone: Around the clock When Dyspneic: With moderate exerti on (e.g., while dressing, using commode or bedpan, walking distances less than 20 feet) Bowel Incontinence Frequency: Very rarel y or never has bowel incontinence When Anxious (Reported or Observed): Les s often than daily Cognitive and Behavioral and Psychiatric Symptoms: None Current Ability: Bathing: able to partic ipate in bathing self in shower or tub, but requires presence of another person throughout the bath for assistance or supervision. Current Ability: Ambulation: Able to wal k only with the supervision or assistance of another person at all times. Current: Management Of Oral Medications: Unable to take medication unless administered by another person Current: Management Of Injec table Medications: Able to take medication(s) at the [facility] t times if given reminders by another person based on the frequency of the injection Procedures Treated for Urinary Tract Infection in P ast 14 Days: Yes Problems Primary Home Care Diagnosis ICD Code: E1 1.22, Type 2 diabetes mellitus w diabetic chronic kidney disease Home Care Diagnosis 1: ICD Code: I13.0, Hyp hrt & chr kdny dis w hrt fail and stg 1-4/unsp chr kdny Home Care Diagnosis 1: Severity Ratin Home Care Diagnosis 2: ICD Code: I50.32, Chronic diastolic (congestive) heart failure Home Care Diagnosis 2: Severity Ratin Home Care Diagnosis 3: ICD Code: N18.32^ ^ Home Care Diagnosis 3: Severity Ratin Home Care Diagnosis 4: ICD Code: J96.11, Chronic respiratory failure with hypoxia Home Care Diagnosis 4: Severity Ratin Home Care Diagnosis 5: ICD Code: M48.061 ^ Home Care Diagnosis 5: Severity Ratin
--- OUTSIDE RECORDS SUMMARY | 2024-01-16 05:14 | External Medical Summary ---
Author Name Unknown Address Unknown Organization K01:[facility] [place] [address] [place] [address] Laboratory Report Ordering Provider Test Date Status JAG SHULTZ 12/22/2023 11:39:05 Final Observation Date Value Abnormality Reference (Units ) Status Iron 12/22/2023 11:39:05 35 33-151 (ug/dL) Final Iron-binding capacity 12/22/2023 11:39:05 363 250-425 (ug/dL) Final Transferrin Sat % 12/22/2023 11:39:05 10 Below low normal 15-55 (%) Final Performing Location [facility] [place] [address] [place] [address]
--- OUTSIDE RECORDS SUMMARY | 2024-01-16 05:14 | External Medical Summary | Summary of Care ---
Author Name Unknown Organization [facility] Address [address] [place] [address] Phone [phone] Care Team Providers Care Air Brake Worker Name Role Phone Galdino Andujar DO Primary Care Provider [phone] Reason for Visit * Reason Onset Date Comments Test Results 12/23/202312/22 Encounter Details Date Type Department Care Team (Late st Contact Info) Description 12/23/2023 Telephone Family Practice [address] [facility] [address] [place] [phone] Galdino Andujar DO [address] [place], [place] [id number] Test Results (12/22) Allergies Active Allergy Reactions Criticality Noted Date [...] as of this encounter (statuses as of 12/23/2023) Medications Medication Sig Dispensed Refills Start Date [...] current use of insulin ([facility]) Use up to 4 times a day E11.9 in case of dexcom failure 100 Strip 11 05/31/2023 Active Dexcom G7 Sensor Use as directed. (From [facility]) 0 06/01/2023 Active Levothyroxine Sodium 200 [...] Particles (Cymbalta)Indication s:Fibromyalgia,Major depressive disorder, recurrent, moderate ([facility]) [...] as of this encounter (statuses as of 12/23/2023) Active Problems Problem Noted Date Diagnosed Date [...] has rx for atorvastatin and plavix to order picker at pharmacy. Type 2 diabetes mellitus [...] rx evidently given by vascular, has to order picker rx documented as of this encounter (statuses as of 12/23/2023) Resolved Problems Problem Noted Date Diagnosed Date [...] as of this encounter (statuses as of 12/23/2023) Immunizations Name Administration Dates Next Due COVID-19 mRNA, LNP-s, No Pre serve, 2-Dose Series (Thrinacia) 01/08/2021,12/18/2020 COVID-19, LNP-s, No Preserve , Navarro-sucrose, Ages 12+ (Pfizer) 2022,10/01/2021 COVID-19, MRNA-LNP, 23-24, P F, 30 MCG/0.3 mL, 12 YRS AND ABOVE, IM (PFIZER-Comirnaty) 07/26/2023 Pneumococcal Conjugate Vacci ne, 20-valent ([id number]) 03/12/2022 Pneumococcal Polysaccharide PPV23 (Pneumovax) 08/22/2009,06/15/2006 Season [...] Telephone Encounter - Shira Gross LPN - 12/23/2023 2:25 PM EDT Patient is aware and will comply. Thank you * Telephone Encounter - Shira Gross LPN - 12/23/2023 2:21 PM EDT ----- Message from Galdino Andujar DO sent at 12/23/2023 7:54 AM EDT ----- Hgba1c has improved. CKD is stable. Continue to follow with Urology as scheduled documented in this encounter Plan of Treatment Upcoming Encounters Date Type Department Care Team (Late st Contact Info) Description 12/27/2023 10:40 AM EDT Office Visit Neph[facility] [address] [place] [address] Erik Lenz MD [address] [place] [address] 12/30/2023 1:00 PM EDT Home Visit [facility] Coordination and Integration [address] [place] [address] Angi Hagen, Community Health Custom Wood Stair Builder [address] [place] [address] 01/06/2024 11:00 AM EDT Home Visit Care Coordination and Integration [address] [place] [address] Angi Hagen, Community Health Custom Wood Stair Builder [address] [place] [address] 01/06/2024 1:00 PM EDT Office Visit Family Practice [address] [place] [address] [address] [place] [phone] Galdino Andujar, [address] [place] [address] 01/11/2024 3:30 PM EDT Office Visit [facility] [address] [place] [address] Marjorie Powell PA-C [address] [place] [address] 01/19/2024 9:00 AM EDT Office Visit Family Practice 65 [facility] [address] [place] [address] Galdino Andujar, [address] [place] [address] 02/14/2024 1:00 PM EDT Nurse Only Ancillary [address] [address] College, Nurse Annual Wellness Visit [address] [address] Scheduled Procedures Name Priority Associated Diagnoses Date/Ti me COLONOSCOPY FLEXIBLE PROXIMAL DIAGNOSTIC Recall Colon cancer screening Health Maintenance Due Date Last Done Comments Cologuard 2000 Fecal Occult Blood Test 2000 Sigmoidoscopy 2000 CKD PHOS USE SMARTSET 52605 02/12/202401/24, 01/07/2022, 03/12/2021, Additional history exists Mammogram [...] 10/20/2024 10/20/2023, 06/12/20 CKD HGB USE SMARTSET [id number] 12/21/202412/21, 12/22/2023, 11/07/2023, Additional history exists TSH [...] Documents on File Type Date Recorded Patient Zoology Teacher Expl anation POLST 03/19/2020 4:25 PM [...] the patient have Health Care Power of Customer Acquisition Specialist? No Healthcare Agents on File Name Relationship Healthcare Agent Relationship Communication Galdino Camp Other - (no specific identity) Health Care Power of Customer Acquisition Specialist Princess Other - (no specific identity) Health Care Power of Customer Acquisition Specialist Care Teams Air Brake Worker Relationship Specialty Start Date End Date Galdino Andujar DO [address] [place] [address] PCP - General Internal Medicine 01/07/22 documented as of this encounter
--- OUTSIDE RECORDS SUMMARY | 2024-01-16 05:14 | External Medical Summary ---
Author Name Unknown Address Unknown Organization K01:LAB[facility]ATORY [facility] - [address] [facility] [place] [address] Laboratory Report Ordering Provider Test Date Status JAG SHULTZ 12/22/2023 11:39:05 Final Observation Date Value Abnormality Reference (Units ) Status BUN 12/22/2023 11:39:05 27 Above high normal 6-20 (mg/dL) Final Creatinine 12/22/2023 11:39:05 1.7 Above high normal 0.5-1.0 (mg/dL) Final Glomerular filtration rate/1.73 sq M.predicted [Volume Rate/Area] in Serum, Plasma or Blood by Creatinine-based formula (CKD-EPI) 12/22/2023 11:39:05 32 Below low normal >=60 (mL/min) Final eGFR is calculated based on the CKD-EPI 2020 equation Sodium 12/22/2023 11:39:05 140 135-146 (m mol/L) Final Potassium 12/22/2023 11:39:05 4.5 3.5-5.1 (m mol/L) Final Cl 12/22/2023 11:39:05 96 Below low normal 98- 107 (mmol/L) Final CO2 12/22/2023 11:39:05 35 Above high normal 22 -32 (mmol/L) Final Anion gap 12/22/2023 11:39:05 9 7-15 (mmol /L) Final Glucose 12/22/2023 11:39:05 162 Above high normal 70 -120 (mg/dL) Final Albumin 12/22/2023 11:39:05 3.9 3.8-5.0 (g /dL) Final AST (Aspartate aminotransferase) 12/22/2023 11:39:05 16 10-35 (U/L) Fin al Alk Phos 12/22/2023 11:39:05 119 35-130 (U/ L) Final Bilirubin, Total 12/22/2023 11:39:05 0.3 <=1 .2 (mg/dL) Final Calcium 12/22/2023 11:39:05 9.4 8.4-10.2 ( mg/dL) Final Protein 12/22/2023 11:39:05 7.5 6.0-8.3 (g /dL) Final ALT (Alanine aminotransferase) 12/22/2023 11:39:05 10 10-35 (U/L) Adrián astorga Performing Location LABORATORY [facility] - [address] [facility] [address]
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
--- OUTSIDE RECORDS SUMMARY | 2024-01-16 05:14 | External Medical Summary ---
Author Name Unknown Address Unknown Organization K01:LABORATORY [facility] [place] - [address] [place] [address] [place] [address] Laboratory Report Ordering Provider Test Date Status LEXIIJAG 12/22/2023 11:39:05 Final Observation Date Value Abnormality Reference (Units ) Status Ferritin 12/22/2023 11:39:05 77 13-150 (ng /mL) Final Postmenopausal women have hi gher ferritin levels than pre-menopausal women. The above reference interval is based on pre-menopausal women. Performing Location [facility] - [address] [place] [address]
[2024-01-16] MEDS: SODIUM CHLORIDE 0.9% 500 ML IV SCH (05:37)
[2024-01-16 05:38] LABS: Basophils # (auto) 0.04 K/uL (0.00-0.20); Basophils % (auto) 0.3 %; Eosinophils # (auto) 0.21 K/uL (0.00-0.50); Eosinophils % (auto) 1.5 %; Hematocrit (blood only) 35.2 % (37.0-47.0); Hemoglobin 10.6 g/dl (12.0-16.0); Immature Granulocytes # (auto) 0.09 K/uL (0.01-0.20); Immature Granulocytes % (auto) 0.6 %; Lymphocytes # (auto) 1.15 K/uL (1.20-3.40); Lymphocytes % (auto) 8.1 %; Mean Corpuscular Hemoglobin 26.8 pg (25.0-34.0); Mean Corpuscular Hgb Conc 30.1 g/dL (32.0-36.0); Mean Corpuscular Volume 88.9 fL (80.0-100.0); Monocytes # (auto) 1.24 K/uL (0.11-0.59); Monocytes % (auto) 8.7 %; Neutrophils # (auto) 11.54 K/uL (1.40-6.50); Neutrophils % (auto) 80.8 %; Platelet Count 328 K/uL (130-400); RDW Coefficient of Variation 16.3 % (11.5-14.5); RDW Standard Deviation 53.5 fL (36.4-46.3); Red Blood Count 3.96 M/uL (4.20-5.40); White Blood Count 14.27 K/ul (4.8-10.8)
--- NOTE | 2024-01-16 05:40 | Emergency Department Note ---
Impression & Plan Fatigue, Constipation, Arthralgia, ELSIE (acute kidney injury), Acute UTI (urinary tract infection) ED Provider Note ED Provider Note NAME: GEENA MAC AGE:68 SEX: Female : 1955 ARRIVES VIA: EMS INFORMANT: Patient ED PROVIDER(s): Sadia Luevano DO CHIEF COMPLAINT: Fatigue, joint pains, constipation, decreased appetite HPI: This is a 68-year-old female with complicated past medical history who presents emergency department due to 2 days of increased fatigue, joint pains, constipation, decreased appetite. Patient states she also had fevers tonight. No known sick contacts, no recent travel. Patient does wear 4 L/min of oxygen at home chronically due to underlying lung disease. Patient denies any overt vomiting or diarrhea. Patient states she has an indwelling ureteral stent due to ongoing kidney problems and does follow with urology. She has not noticed any change in her urine recently. She denies any increased leg swelling. She denies rashes or sores. She denies any URI symptoms, chest pain, or increased shortness of breath. PAST MEDICAL HISTORY:See Below PAST SURGICAL HISTORY:See Below FAMILY HISTORY:See Below SOCIAL HISTORY:See Below HOME MEDICATIONS:See Below ALLERGIES:See Below VITALS:See Below PHYSICAL EXAMINATION: GENERAL: alert, unwell appearing, well nourished, no distress, non-toxic, BMI 46 EYE EXAM: normal conjunctiva, PERRL and EOM's grossly intact OROPHARYNX: no exudate, no erythema, lips, buccal mucosa, and tongue normal and mucous membranes are dry NECK: supple, no nuchal rigidity, no adenopathy, non-tender LUNGS: Clear to auscultation. Normal chest wall mechanics, no w/r/r HEART: no murmurs, S1 normal and S2 normal ABDOMEN: abdomen soft, mild abdominal discomfort with palpation more in right mid abdomen, normo-active bowel sounds, no masses, no rebound or guarding. Dull to percussion. SKIN: no rashes, petechiae, orbruising UPPER EXTREMITIES: upper extremities are grossly normal. FROM, nml pulses b/l. LOWER EXTREMITIES: No pitting edema. FROM, nml pulses b/l. NEURO EXAM: Normal sensorium, cranial nerves II-XII grossly intact, normal speech, no facial droop,nogross weakness of arms, no gross weakness of legs. Gross sensation intact. No ataxia. Vital Signs: reviewed and remarkable Differential Diagnosis: Viral syndrome, otitis, pharyngitis, pneumonia, influenza, meningitis, urinary tract infection, sepsis, bacteremia, as well as other pathologies. MEDICAL DECISION MAKING: THis is a 68 yo female with a complicated PMH who presents to the ER c/o 2 days of fatigue, fevers, and sepsis. No URI symptoms or worsening SOB. Patient with chronic pulmonary problems on home oxygen and was maintaining her sats on this normal amount of oxygen. VS stable. Labs drawn and sent, IV established, EKG and CXR performed and interpreted at bedside, and patient placed on telemetry. She was started on gentle IVF hydration due to hx of CHF and CKD but did appear clinically dehydrated. Initially xrays obtained while awaiting labs and urine. UA suggestive of UTI. Patient with ELSIE compared to prior baseline creatinine. Patient started on IV antibiotics after review or recent urine cultures. Biofire negative. Stent placement questioned by rad so this was discussed with urology. They recommended CT additionally. Consult placed for them. Case discussed with hospitalist team for additional evaluation and mgmt. Consultation(s): 0740: Discussed with Dr. Castellanos, [facility] hospitalist team, for additional evaluation and mgmt. 0807: Discussed with urology [employer], Kaley Thornton. They reviewed stent position on KUB that was questioned by rad. They recommend CT a/p to confirm. Consult placed for them additionally. ER Treatment Provided: See below Diagnostics Interpreted By Me: -ECG: Sinus tachycardia at 102, normal axis, normal intervals, no acute ST/T wave changes -Cardiac Monitoring: An order was placed for continuous cardiac monitoring. The monitor shows a rate of 98 with normal sinus rhythm. -Laboratory studies: As stated above and show below. -Imaging studies: cxr: chronic fibrotic appearing changes b/l, no pleural effusion, no focal consolidation Triage Nursing Note Reviewed Prior/Outside Records Reviewed Past Med/Surg History Medical History Fever Acute on chronic kidney failure Acute CHF Septic shock Sepsis secondary to UTI Transient hypotension UTI due to Klebsiella species Hypotension Acute pyelonephritis Hypomagnesemia Mitral valve stenosis Echo 06/2023: Borderline mild mitral stenosis secondary to severe mitral annular calcification Chronic hypoxemic respiratory failure Cataract, bilateral Lumbago with sciatica Lower extremity pain, bilateral Neuropathy feet On home oxygen therapy 3L continuous CHF (congestive heart failure) Follows with Dr. Woodall Subclavian artery stenosis Cerebrovascular duplex study 06/2023: Retrograde flow in the right vertebral artery. 50-69% proximal right subclavian artery stenosis. Antegrade flow in the left vertebral artery. Normal flow in the left subclavian artery. Carotid stenosis, right Cerebrovascular duplex 07/11/23: 80-99% R ICA stenosis. No hemodynamically significant stenosis in the LICA. Diabetes mellitus, type II CKD (chronic kidney disease), stage III Follows with [facility] ELISSA on CPAP CPAP + 3L O2 (O2 is continuous) HTN (hypertension) HLD (hyperlipidemia) Morbid obesity HIT (heparin-induced thrombocytopenia) 2008, [facility] then life flight to [place] > "resolved" Depression with anxiety Hypothyroidism History of pulmonary embolism 2008 s/p zoraida filter GERD (gastroesophageal reflux disease) RLS (restless legs syndrome) History of DVT (deep vein thrombosis) 2008 (during ICU [place] admission/PNA) Presence of IVC filter 2008 Fibromyalgia Surgical History Family history of reaction to anesthesia Brother/niece- PONV Brother- "wakes up violent" History of colostomy reversal History of tooth extraction History of arthroscopy left ankle History of incisional hernia repair Nausea and vomiting after administration of anesthetic agent History of colonoscopy History of cholecystectomy History of total right knee replacement History of tracheostomy 06/2009 (per [facility] records), secondary to acute respiratory failure in setting of PNA, reversed a few months later History of thyroidectomy, total 2010 History of colon resection secondary to R colon perforation, resected treated with colostomy and eventual reversal in 2008, Dr. Lerma Family History Father , age 74 Lung cancer Mother , age 45 Cirrhosis Social History Smoking Status: Never smoker Tobacco Type: Cigarettes Cigarettes Per Day: 1996; Second Hand Exposure: No; Do You Dip or Chew Tobacco: No; Hx Alcohol Use: No Hx Substance Use: No Preferred Language: Lebanese Communication Ability: Effective [employer] Required: No Beliefs That Will Affect Care: None marital status: Single Current Living Situation: Alone Current Living Situation Comment: Lives by self in apartment How many Children do You have: 0 Feels Safe at Home: Yes Assistive Devices: CPAP, Oxygen - Continuous and Walker Allergies Allergies Allergy/AdvReac Type Severity Reaction Status Date / Time morphine Allergy Severe Swelling, Verified 11/20/23 10:52 "Violent reaction- almost " dapagliflozin [From Farxiga] Allergy Intermediate Yeast Verified 11/20/23 10:52 infections tetanus toxoid, adsorbed Allergy Intermediate Passed Verified 11/20/23 10:52 out, "got sick" as child bupropion [From Wellbutrin] AdvReac Intermediate Recurrent Verified 11/20/23 10:52 falls as per patient codeine AdvReac Intermediate Hallucinati Verified 11/20/23 10:52 ons empagliflozin AdvReac Intermediate Yeast Verified 11/20/23 10:52 [From Jardiance] infections heparin AdvReac Intermediate HIT, Verified 11/20/23 10:52 "Fluid in lungs" hydrocodone [From Vicodin] AdvReac Intermediate Drowsy Verified 11/20/23 10:52 Home Meds Home Medications Medication Instructions Recorded Confirmed aspirin 81 mg tablet,delayed 81 mg PO DAILY 09/20/23 01/16/24 release atorvastatin 20 mg tablet 20 mg PO DAILY 09/20/23 01/16/24 baclofen 10 mg tablet 10 mg PO BID PRN Muscle Spasm 09/20/23 01/16/24 clonazepam 0.5 mg tablet 0.5 mg PO TID 09/20/23 01/16/24 duloxetine 60 mg capsule,delayed See Rx Instructions .Route .COMPLEX 09/20/23 01/16/24 release furosemide 40 mg tablet 60 mg PO BID 09/20/23 01/16/24 gabapentin 300 mg capsule 600 mg PO TID 09/20/23 01/16/24 insulin aspart U-100 100 unit/mL 8 unit subcut UD 09/20/23 01/16/24 (3 mL) subcutaneous pen (Novolog FlexPen U-100 Insulin aspart) insulin degludec 100 unit/mL (3 50 unit subcut HS 09/20/23 01/16/24 mL) subcutaneous pen (Tresiba FlexTouch U-100 insulin) magnesium oxide 400 mg (241.3 mg 400 mg PO BID 09/20/23 01/16/24 magnesium) tablet omeprazole 20 mg capsule,delayed 20 mg PO DAILY 09/20/23 01/16/24 release oxycodone 5 mg tablet 5 mg PO Q6H PRN Pain 09/20/23 01/16/24 potassium chloride 20 mEq 20 meq PO BID 09/20/23 01/16/24 tablet,extended release(part/cryst) ropinirole 2 mg tablet 2 mg PO HS 09/20/23 01/16/24 sennosides 8.6 mg-docusate sodium 1 tab PO BID 09/20/23 01/16/24 50 mg tablet (Senna-Time S) tirzepatide 5 mg/0.5 mL 5 mg subcut WK 09/20/23 01/16/24 subcutaneous pen injector (Kevan) tramadol 50 mg tablet 50 mg PO TID PRN Pain 09/20/23 01/16/24 apixaban 2.5 mg tablet (Eliquis) 2.5 mg PO BID 10/24/23 01/16/24 dicyclomine 20 mg tablet 20 mg PO QID PRN abdominal cramping 10/24/23 01/16/24 duloxetine 30 mg capsule,delayed See Rx Instructions .Route .COMPLEX 10/24/23 01/16/24 release triamcinolone acetonide 0.5 % 1 applic topical BID PRN chest rash 10/24/23 01/16/24 topical cream cholecalciferol (vitamin D3) 25 25 mcg PO DAILY 01/16/24 01/16/24 mcg (1,000 unit) tablet clopidogrel 75 mg tablet 75 mg PO DAILY 01/16/24 01/16/24 Previous Rx's Medication Instructions Recorded levothyroxine 200 mcg tablet 200 mcg PO DAILYBB #30 tabs 12/07/23 trazodone 100 mg tablet 50 mg (1/2 x 100 mg) PO HS #30 tabs 12/07/23 Results & Data (ED) Vital Signs Vital Signs - 24 hr 01/16/24 07:00 01/16/24 07:01 01/16/24 07:01 Temperature Pulse Rate Pulse Rate from SpO2 Sensor 92 H 90 Respiratory Rate Blood Pressure 131/86 Blood Pressure Mean 108 Pulse Oximetry 94 92 01/16/24 07:30 01/16/24 07:30 Temperature 36.9 C Pulse Rate 89 Pulse Rate from SpO2 Sensor 89 Respiratory Rate 22 Blood Pressure 135/58 L Blood Pressure Mean 78 Pulse Oximetry 92 Laboratory Data 01/16/24 05:19 01/16/24 05:19 Lab Results 01/16/24 01/16/24 01/16/24 Range/Units 05:12 05:19 06:45 WBC 14.27 H (4.8-10.8) K/ul RBC 3.96 L (4.20-5.40) M/uL Hgb 10.6 L (12.0-16.0) g/dl Hct 35.2 L (37.0-47.0) % MCV 88.9 (80.0-100.0) fL MCH 26.8 (25.0-34.0) pg MCHC 30.1 L (32.0-36.0) g/dL RDW Std Deviation 53.5 H (36.4-46.3) fL RDW Coeff of Adolfo 16.3 H (11.5-14.5) % Plt Count 328 (130-400) K/uL MPV 10.0 (9.4-12.4) fL Immature Gran % (Auto) 0.6 % Neut % (Auto) 80.8 % Lymph % (Auto) 8.1 % Whiteside % (Auto) 8.7 % Eos % (Auto) 1.5 % Baso % (Auto) 0.3 % Neut # (Auto) 11.54 H (1.40-6.50) K/uL Lymph # (Auto) 1.15 L (1.20-3.40) K/uL Whiteside # (Auto) 1.24 H (0.11-0.59) K/uL Eos # (Auto) 0.21 (0.00-0.50) K/uL Baso # (Auto) 0.04 (0.00-0.20) K/uL Immature Gran # (Auto) 0.09 (0.01-0.20) K/uL Sodium 133 L (136-145) mmol/L Potassium 3.9 (3.5-5.1) mmol/L Chloride 96 L (98-107) mmol/L Carbon Dioxide 31 (21-32) mmol/L Anion Gap 6 (3-11) BUN 28 H (6-23) mg/dl Creatinine 1.95 H (0.6-1.2) mg/dl Est Cr Clr Drug Dosing 37.1 ml/min Est GFR ( Amer) 29.9 ml/min Est GFR (Non-Af Amer) 25.8 ml/min BUN/Creatinine Ratio 14.4 (10-20) Glucose 158 H (70-99(Fasting)) mg/dl Calcium 9.2 (8.6-10.3) mg/dl Magnesium 2.0 (1.7-2.4) mg/dl Total Bilirubin 0.6 (0.2-1.0) mg/dl AST 12 L (13-39) U/L ALT 5 L (7-52) U/L Alkaline Phosphatase 87 (34-104) U/L Total Creatine Kinase 33 (26-192) U/L Total Protein 7.4 (6.0-8.3) gm/dl Albumin 3.5 (3.4-5.0) gm/dl Globulin 3.9 (2.5-4.0) gm/dl Albumin/Globulin Ratio 0.9 (0.9-2) Procalcitonin 0.16 (0-0.5) ng/ml Urine Color Yellow Urine Appearance Cloudy A (Clear) Urine pH 7.5 (4.5-7.5) Ur Specific Williams 1.012 (1.000-1.030) Urine Protein 1+ H (Negative) Urine Glucose (UA) Negative (Negative) Urine Ketones Negative (Negative) Urine Blood 2+ H (Negative) Urine Nitrite Negative (Negative) Urine Bilirubin Negative (Negative) Urine Urobilinogen Negative (Negative) Ur Leukocyte Esterase 3+ H (Negative) Urine WBC (Auto) >50 H (0-5) /hpf Urine RBC (Auto) >20 H (0-2) /hpf U Hyaline Cast (Auto) 3-5 H (0-2) /lpf U Epithel Cells (Auto) 0-2 (0-2) /hpf Urine Bacteria (Auto) 1+ H (None Seen) Adenovirus (PCR) Not Detected (NotDetected) B. pertussis DNA (PCR) Not Detected (NotDetected) B.parapertussis DNA PCR Not Detected (NotDetected) C. pneumoniae DNA (PCR) Not Detected (NotDetected) Coronavirus OC43 (PCR) Not Detected (NotDetected) Coronavirus HKU1 (PCR) Not Detected (NotDetected) Coronavirus 229E (PCR) Not Detected (NotDetected) SARS-CoV-2 (PCR) Not Detected (NotDetected) Coronavirus NL63 (PCR) Not Detected (NotDetected) Human Metapneumovir PCR Not Detected (NotDetected) Influenza Type A (PCR) Not Detected (NotDetected) Influenza Type B (PCR) Not Detected (NotDetected) M. pneumoniae (PCR) Not Detected (NotDetected) Parainfluenza 1 (PCR) Not Detected (NotDetected) Parainfluenza 2 (PCR) Not Detected (NotDetected) Parainfluenza 3 (PCR) Not Detected (NotDetected) Parainfluenza 4 (PCR) Not Detected (NotDetected) RSV (PCR) Not Detected (NotDetected) Entero/Rhino (PCR) Not Detected (NotDetected) Administered Medications Acetaminophen (Acetaminophen 325 Mg Tab) 650 mg PO Q4H PRN PRN Reason: Pain or Fever Stop: 02/15/24 07:40 Last Admin: 01/17/24 01:12 Dose: 650 mg Documented By: Admin: 01/16/24 19:23 Dose: 650 mg Documented By: PHILIP Apixaban (Apixaban 2.5 Mg Tab) 2.5 mg PO BID [facility] Stop: 02/15/24 20:59 Last Admin: 01/16/24 21:40 Dose: 2.5 mg Documented By: CARLOS Aspirin (Aspirin 81 Mg Ectab) 81 mg PO DAILY [facility] Stop: 02/15/24 11:38 Last Admin: 01/16/24 12:22 Dose: 81 mg Documented By: OTONIEL Clonazepam (Clonazepam 0.5 Mg Tab) 0.5 mg PO TID [facility] Stop: 02/15/24 13:59 Last Admin: 01/16/24 21:40 Dose: 0.5 mg Documented By: Admin: 01/16/24 14:55 Dose: 0.5 mg Documented By: VERONICA Clopidogrel Bisulfate (Clopidogrel Bisulfate 75 Mg Tab) 75 mg PO DAILY [facility] Stop: 02/15/24 11:38 Last Admin: 01/16/24 12:22 Dose: 75 mg Documented By: OTONIEL Duloxetine HCl (Duloxetine Hcl 60 Mg Cap) 60 mg PO DAILY [facility] Stop: 02/15/24 11:38 Last Admin: 01/16/24 12:22 Dose: 60 mg Documented By: OTONIEL Duloxetine HCl (Duloxetine Hcl 30 Mg Cap) 30 mg PO DAILY [facility] Stop: 02/15/24 11:38 Last Admin: 01/16/24 12:22 Dose: 30 mg Documented By: OTONIEL Gabapentin (Gabapentin 300 Mg Cap) 300 mg PO TID [facility]ERT Stop: 02/15/24 13:59 Last Admin: 01/16/24 21:40 Dose: 300 mg Documented By: Admin: 01/16/24 14:55 Dose: 300 mg Documented By: VERONICA Daptomycin 500 mg/ Syringe 10 mls @ 5 mls/min IV Q24H [facility]; Protocol Stop: 01/26/24 11:59 Last Admin: 01/16/24 12:22 Dose: 5 mls/min Documented By: OTONIEL Cefepime HCl 2,000 mg/ Syringe 20 mls @ 5 mls/min IV Q12H ROBERT; Protocol Stop: 01/27/24 02:59 Last Admin: 01/17/24 03:06 Dose: 5 mls/min Documented By: CARLOS Sodium Chloride (Nss) 1,000 mls @ 100 mls/hr IV .Q10H [facility]ERT Stop: 02/16/24 03:44 Last Admin: 01/17/24 03:41 Dose: 100 mls/hr Documented By: CARLOS Insulin Aspart (Insulin Aspart Per Unit Charge) 0 units SC ACHS [facility] Stop: 02/15/24 08:14 Last Admin: 01/16/24 21:41 Dose: Not Given Documented By: Admin: 01/16/24 17:05 Dose: Not Given Documented By: Admin: 01/16/24 12:49 Dose: Not Given Documented By: VERONICA Co-signed By: NATA Admin: 01/16/24 08:28 Dose: Not Given Documented By: VERONICA Co-signed By: LE Insulin Glargine (Lantus Per Unit Charge) 0 units SQ HS ROBERT; Protocol Stop: 02/15/24 20:59 Last Admin: 01/16/24 21:41 Dose: 10 units Documented By: CARLOS Co-signed By: PHILIP Levothyroxine Sodium (Levothyroxine Sodium 200 Mcg Tablet) 200 mcg PO DAILYBB [facility] Stop: 02/16/24 06:29 Last Admin: 01/17/24 05:58 Dose: 200 mcg Documented By: CARLOS Magnesium Oxide (Magnesium Oxide 400 Mg Tab) 400 mg PO BID [facility]ERT Stop: 02/15/24 20:59 Last Admin: 01/16/24 21:40 Dose: 400 mg Documented By: CARLOS Oxycodone HCl (Oxycodone Hcl Ir 5 Mg Tab (Immediate Release)) 5 mg PO Q6H PRN PRN Reason: Pain Stop: 01/30/24 11:38 Last Admin: 01/17/24 05:58 Dose: 5 mg Documented By: Admin: 01/16/24 22:47 Dose: 5 mg Documented By: Admin: 01/16/24 17:04 Dose: 5 mg Documented By: PHILIP Potassium Chloride (Potassium Chloride Crtab 20 Meq Tabcr) 20 meq PO BID [facility]ERT Stop: 02/15/24 20:59 Last Admin: 01/16/24 21:40 Dose: 20 meq Documented By: CARLOS Ropinirole HCl (Ropinirole Hcl 2 Mg Tablet) 2 mg PO HS [facility] Stop: 02/15/24 20:59 Last Admin: 01/16/24 21:40 Dose: 2 mg Documented By: CARLOS Senna/Docusate Sodium (Docusate Sodium/Senna 50/8.6mg Tab) 1 tab PO BID [facility] Stop: 02/15/24 20:59 Last Admin: 01/16/24 21:40 Dose: 1 tab Documented By: CARLOS Trazodone HCl (Trazodone Hcl 50 Mg Tab) 50 mg PO HS [facility] Stop: 02/15/24 20:59 Last Admin: 01/16/24 21:40 Dose: 50 mg Documented By: CARLOS Discontinued Medications Hydromorphone HCl (Hydromorphone Inj 0.5 Mg/0.5 Ml Syr) 0.25 mg IV NOW STA Stop: 01/16/24 09:02 Last Admin: 01/16/24 09:47 Dose: 0.25 mg Documented By: VERONICA Sodium Chloride (Nss) 500 mls @ 65 mls/hr IV .Q7H42M [facility] Stop: 02/15/24 05:44 Last Admin: 01/17/24 06:13 Dose: Not Given Documented By: Infusion: 01/17/24 02:49 Dose: Infused Documented By: Admin: 01/16/24 18:43 Dose: 65 mls/hr Documented By: Infusion: 01/16/24 15:17 Dose: Infused Documented By: Admin: 01/16/24 12:23 Dose: 65 mls/hr Documented By: Infusion: 01/16/24 10:05 Dose: Infused Documented By: Admin: 01/16/24 05:37 Dose: 125 mls/hr Documented By: WANG Acetaminophen (Ofirmev) 1,000 mg in 100 mls @ 400 mls/hr IV NOW STA Stop: 01/16/24 05:54 Last Infusion: 01/16/24 06:17 Dose: Infused Documented By: Admin: 01/16/24 05:58 Dose: 400 mls/hr Documented By: WANG Ceftriaxone Sodium (Rocephin) 2,000 mg in 50 mls @ 100 mls/hr IV NOW STA Stop: 01/16/24 08:08 Last Infusion: 01/16/24 09:11 Dose: Infused Documented By: Admin: 01/16/24 08:16 Dose: 100 mls/hr Documented By: VERONICA Ondansetron HCl (Ondansetron Inj 2 Mg/Ml 2 Ml Vial) 4 mg IV NOW STA Stop: 01/16/24 09:03 Last Admin: 01/16/24 09:47 Dose: 4 mg Documented By: VERONICA Imaging Data Radiologist's Impression: KUB X-Ray 01/16/24 05:40 KUB HISTORY: constipation COMPARISON: Abdomen and pelvis CT 11/24/2023. FINDINGS: The bowel gas pattern is unremarkable. There are no dilated loops of small bowel to suggest an obstruction. No renal calculi. No ureteral calculi. No pneumoperitoneum or pneumatosis. An IVC filter is noted. The proximal portion of the right ureteral stent is folded on itself. Prior cholecystectomy. IMPRESSION: 1. Nonobstructed bowel gas pattern. 2. The proximal portion of the right ureteral stent is folded on itself. Urology consultation recommended for repositioning. ACT 112: Negative or not required by law. Electronically signed by: Ernesto France M.D. 01/16/2024 7:51 AM Chest X-Ray 01/16/24 06:31 XR chest 1V portable HISTORY: 68 years-old Female fever COMPARISON: 11/26/2023, 10/24/2023 TECHNIQUE: Semierect AP view of the chest FINDINGS: Cardiac silhouette is enlarged. Chronic reticular interstitial opacities redemonstrated. There is no pneumothorax, pleural effusion or new airspace consolidation. Right carotid stent with adjacent surgical clips redemonstrated. Bones appear grossly intact. IMPRESSION: 1. Cardiomegaly without acute process of the chest. 2. Chronic interstitial coarsening suggestive of fibrosis. ACT 112: Negative or not required by law. The above report was generated using voice recognition software. It may contain grammatical, syntax or spelling errors. Electronically signed by: Enrico Gilliland M.D. 01/16/2024 6:58 AM Discharge Plan Visit Data Chief Complaint: Fever Stated Complaint: Fever, Headache, Body Aches ED Provider: Sadia Luevano Discharge Problem: Fatigue, Constipation, Arthralgia, ELSIE (acute kidney injury), Acute UTI (urinary tract infection) Patient Disposition: Admitted As Inpatient Discharge Instructions Interventions: ED Discharge Assessment Last Done: 01/16/24 16:17
[2024-01-16 05:54] LABS: Albumin Globulin Ratio 0.9 (0.9-2); Albumin Level 3.5 gm/dl (3.4-5.0); BUN Creatinine Ratio 14.4 (10-20); Bilirubin,Total 0.6 mg/dl (0.2-1.0); Calcium 9.2 mg/dl (8.6-10.3); Creatinine Clr Calc Pharmacy 37.1 ml/min; Est GFR (African American) 29.9 ml/min; Est GFR (Non-African American) 25.8 ml/min; Globulin 3.9 gm/dl (2.5-4.0); Potassium 3.9 mmol/L (3.5-5.1); Total Protein 7.4 gm/dl (6.0-8.3)
[2024-01-16] MEDS: ACETAMINOPHEN 1,000 MG/100 ML VIAL IV STA (05:58)
[2024-01-16 06:18] LABS: Adenovirus PCR Not Detected (NotDetected); Bordetella parapertussis PCR Not Detected (NotDetected); Bordetella pertussis PCR Not Detected (NotDetected); Chlamydia pneumoniae PCR Not Detected (NotDetected); Coronavirus 229E PCR Not Detected (NotDetected); Coronavirus CoV-2 (COVID19)PCR Not Detected (NotDetected); Coronavirus HKU1 PCR Not Detected (NotDetected); Coronavirus NL63 PCR Not Detected (NotDetected); Coronavirus OC43PCR Not Detected (NotDetected); Human Metapneumovirus PCR Not Detected (NotDetected); Influenza A PCR Not Detected (NotDetected); Influenza B PCR Not Detected (NotDetected); Mycoplasma pneumoniae PCR Not Detected (NotDetected); Parainfluenza Virus 1 PCR Not Detected (NotDetected); Parainfluenza Virus 2 PCR Not Detected (NotDetected); Parainfluenza Virus 3 PCR Not Detected (NotDetected); Parainfluenza Virus 4 PCR Not Detected (NotDetected); Respiratory Syncytial VirusPCR Not Detected (NotDetected); Rhinovirus/Enterovirus PCR Not Detected (NotDetected)
--- NOTE | 2024-01-16 06:59 | XRay Report ---
XR chest 1V portable HISTORY: 68 years-old Female fever COMPARISON: 11/26/2023, 10/24/2023 TECHNIQUE: Semierect AP view of the chest FINDINGS: Cardiac silhouette is enlarged. Chronic reticular interstitial opacities redemonstrated. There is no pneumothorax, pleural effusion or new airspace consolidation. Right carotid stent with adjacent surgi nilda clips redemonstrated. Bones appear grossly intact. IMPRESSION: 1. Cardiomegaly without acute process of the chest. 2. Chronic interstitial coarsening suggestive of fibrosis. ACT 112: Negative or not required by law. The above report was generated using voice recognition software. It may contain grammatical, syntax o r spelling errors. Electronically signed by: Enrico Gilliland M.D. 01/16/2024 6:58 AM
[2024-01-16] MEDS ORDERED: GLUCOSE 40% GEL 15 GM TUBE PO PRN (07:41)
[2024-01-16] MEDS ORDERED: PHARMACY GLYCEMIC MGMT CONSULT PRN (07:41)
[2024-01-16] MEDS ORDERED: GLUCOSE 10 TAB/TUBE PO PRN (07:41)
[2024-01-16] MEDS ORDERED: CARBOHYDRATES FOR HYPOGLYCEMIA PO PRN (07:41)
[2024-01-16] MEDS ORDERED: MAGNESIUM HYDROXIDE SUSP 30 ML UDC PO PRN (07:41)
[2024-01-16] MEDS ORDERED: DEXTROSE 50% 50 ML SYRINGE IV PRN (07:41)
[2024-01-16] MEDS ORDERED: GLUCAGON FOR INJ 1 MG VIAL SQ PRN (07:41)
[2024-01-16] MEDS ORDERED: POLYETHYLENE (MIRALAX) 17 GM PACK PO PRN (07:41)
--- NOTE | 2024-01-16 07:53 | XRay Report ---
KUB HISTORY: constipation COMPARISON: Abdomen and pelvis CT 11/24/2023. FINDINGS: The bowel gas pattern is unremarkable. There are no dilated loops of small bowel to suggest an obstruction. No renal calculi. No ureteral calculi. No pneumoperitoneum or pneumatosis. An IVC f ilter is noted. The proximal portion of the right ureteral stent is folded on itself. Prior cholecyst ectomy. IMPRESSION: 1. Nonobstructed bowel gas pattern. 2. The proximal portion of the right ureteral stent is folded on itself. Urology consultation recomme nded for repositioning. ACT 112: Negative or not required by law. Electronically signed by: Ernesto France M.D. 01/16/2024 7:51 AM
[2024-01-16 07:57] LABS: Appearance Urine Cloudy (Clear); Bacteria Urine Automated 1+ (None Seen); Bilirubin Urine Negative (Negative); Blood Urine 2+ (Negative); Color Urine Yellow; Epithelial Cell Urine Auto 0-2 /hpf (0-2); Glucose Urine UA Negative (Negative); Ketones Urine Negative (Negative); Leukocyte Esterase Urine 3+ (Negative); Nitrite Urine Negative (Negative); Protein Urine 1+ (Negative); RBC Urine Automated >20 /hpf (0-2); Specific Gravity Urine 1.012 (1.000-1.030); Urobilinogen Urine Negative (Negative); WBC Urine Automated >50 /hpf (0-5); pH Urine 7.5 (4.5-7.5)
[2024-01-16] MEDS: cefTRIAXone SODIUM 2,000 MG/50 ML BAG IV STA (08:16)
[2024-01-16] MEDS: INSULIN ASPART PER UNIT CHARGE SC SCH (08:28)
--- NOTE | 2024-01-16 08:44 | History & Physical Report ---
Date of Service January 16, 2024 Assessment & Plan (1) Sepsis: (2) Complicated urinary tract infection: (3) Acute renal failure superimposed on stage 3 chronic kidney disease: (4) Ureteral stent retained: (5) Abdominal pain: (6) Diabetes mellitus, type II: (7) ELISSA on CPAP: (8) HTN (hypertension): (9) History of pulmonary embolism: (10) Chronic diastolic heart failure: (11) Chronic hypoxemic respiratory failure: Plan This is a 68-year-old female who has a significant past medical history of insulin-dependent T2DM, chronic hypoxic respiratory failure on 4 L of oxygen via nasal cannula multifactorial in setting of CHF, cor pulmonale and probable interstitial lung disease, CKD stage III baseline creatinine 1.6, diastolic CHF, HTN, HLD, history of recurrent DVT status post IVC filter, history of transcarotid artery revascularization done on 09/09/2023, ELISSA on CPAP, history of heparin-induced thrombocytopenia, GERD, RLS, chronic constipation, chronic ambulatory dysfunction in setting of knee pain who presents to ER secondary to fever x 2 days. Probable sepsis - tachycardia, leukocytosis, UA concerning for infection Complicated urinary tract infection in setting of right ureteral stent History of R UPJ obstruction s/p stent placement on 11/24 Abdominal Pain, RLQ Admit to PCU Blood and urine cultures obtained CT abdomen pelvis ordered KUB: concern for folded ureteral stent Urology consulted appreciate their recs CT a/p:. Persistent right perinephric fat stranding. This may represent a right- sided pyelonephritis. Recommend correlation with urinalysis. 2. Moderate to severe right-sided hydronephrosis, unchanged. However, the right ureteral stent appears in good position. Broad spectrum antibiotic with IV Daptomycin, received rocephin in ED consult infection disease due to complicated UTI gentle IVF 65cc/hr in setting of heart failure, she is hemodynamically stable Insulin-dependent T2DM Last A1c 7.5 on 11/20/2023 Lantus/NovoLog per protocol Glycemic pharmacist consulted, appreciate assistance in management of blood sugar Home regimen is Tresiba, NovoLog and Kevan Chronic hypoxic respiratory failure on 4 L of oxygen ELISSA on CPAP Chronic diastolic CHF Currently euvolemic Daily weights, strict I's and O's hold lasix for now in setting of sepsis, resume as soon as able will continue KCL For now, K is 3.9, monitor prp daily Acute on Chronic CKD-3 baseline cr 1.6 bun/cr 1.95 follows [facility] monitor renal function, avoid nephrotoxic agents reducing gabapentin to 300mg tid based on renal function per pharmacy Hx of TCAR by Dr. Tang 08/2023 continue statin, asa, plavix asa and plavix x 1 yr per pt holding statin while on DAPTO Hx of DVT s/p IVCF hx of PE continue eliquis 2.5mg bid Dvt ppx: Eliquis FULL CODE PCP: Dr. Andujar Dispo: admit to PCU Pt was seen and examined in collaboration with Dr. Castellanos, please see addendum A total of 80 minutes was spent coordinating, documenting, and providing care for this patient excluding time spent in the performance of separately billed services. This included personally viewing all current laboratories and imaging studies, medication reconciliation, outpatient chart review, and discussion with specialists. Pt would like providers to update her brother, Galdino Camp, , regarding current condition. The chart was completed utilizing [employer] Speech voice recognition software. Grammatical errors, random word insertions, pronoun errors, and incomplete sen tences are an occasional consequence of this system due to software limitations, ambient noise, and hardware issues. Any formal questions or concerns about the content, text, or information contained within the body of this dictation should be directly addressed to the provider for clarification.. History of Present Illness Chief Complaint: Fever x 2-3 days. Primary Care Provider: Galdino Andujar, This is a 68-year-old female who has a significant past medical history of insulin-dependent T2DM, chronic hypoxic respiratory failure on 4 L of oxygen via nasal cannula multifactorial in setting of CHF, cor pulmonale and probable interstitial lung disease, CKD stage III baseline creatinine 1.6, diastolic CHF, HTN, HLD, history of recurrent DVT status post IVC filter, history of transcarotid artery revascularization done on 09/09/2023, ELISSA on CPAP, history of heparin-induced thrombocytopenia, GERD, RLS, chronic constipation, chronic amatory dysfunction in setting of knee pain who presents to ER secondary to fever times a few days. Of significance patient recently had a complicated hospitalization in which she was admitted 11/20 to 12/07/2023. Initially she was admitted secondary to amatory dysfunction in setting of severe osteoarthritis. Her hospital course became complicated when she developed urosepsis in setting of right ureteral obstruction requiring right ureteral stent placement by urology. Postoperatively she remained hypotensive requiring ICU admission and vasopressor support. She was treated with IV antibiotics. She was then discharged to SNF and was eventually discharged home. Her outpatient records were reviewed. Posthospitalization she has had follow-up with her primary care provider, Dr. Andujar as well as urology and cardiology. She remains on Lasix 60 mg twice daily. She presents today due to fever for the last few days. She is not sure how high her fever was as she states, "I cannot read my thermometer." She does recall being confused and feeling unable to operate her cell phone, but this resolved. She also complains of right lower quadrant abdominal pain. Pain started yesterday. She denies any chills or sweats, lightheadedness, dizziness, chest pain, shortness of breath, vomiting, dysuria, hematuria, increased urgency or frequency with urination, diarrhea. She continues to have chronic constipation. She does have postnasal drip and a cough and relates this is related to her seasonal allergies. She has not ate or drink anything this morning and she did not take any of her medications. Allergies Allergy/AdvReac Type Severity Reaction Status Date / Time morphine Allergy Severe Swelling, Verified 11/20/23 10:52 "Violent reaction- almost " dapagliflozin [From Farxiga] Allergy Intermediate Yeast Verified 11/20/23 10:52 infections tetanus toxoid, adsorbed Allergy Intermediate Passed Verified 11/20/23 10:52 out, "got sick" as child bupropion [From Wellbutrin] AdvReac Intermediate Recurrent Verified 11/20/23 10:52 falls as per patient codeine AdvReac Intermediate Hallucinati Verified 11/20/23 10:52 ons empagliflozin AdvReac Intermediate Yeast Verified 11/20/23 10:52 [From Jardiance] infections heparin AdvReac Intermediate HIT, Verified 11/20/23 10:52 "Fluid in lungs" hydrocodone [From Vicodin] AdvReac Intermediate Drowsy Verified 11/20/23 10:52 Home Medications Medication Instructions Recorded Confirmed Type aspirin 81 mg tablet,delayed 81 mg PO DAILY 09/20/23 01/16/24 History release atorvastatin 20 mg tablet 20 mg PO DAILY 09/20/23 01/16/24 History baclofen 10 mg tablet 10 mg PO BID PRN Muscle Spasm 09/20/23 01/16/24 History clonazepam 0.5 mg tablet 0.5 mg PO TID 09/20/23 01/16/24 History duloxetine 60 mg capsule,delayed See Rx Instructions .Route .COMPLEX 09/20/23 01/16/24 History release furosemide 40 mg tablet 60 mg PO BID 09/20/23 01/16/24 History gabapentin 300 mg capsule 600 mg PO TID 09/20/23 01/16/24 History insulin aspart U-100 100 unit/mL 8 unit subcut UD 09/20/23 01/16/24 History (3 mL) subcutaneous pen (Novolog FlexPen U-100 Insulin aspart) insulin degludec 100 unit/mL (3 50 unit subcut HS 09/20/23 01/16/24 History mL) subcutaneous pen (Tresiba FlexTouch U-100 insulin) magnesium oxide 400 mg (241.3 mg 400 mg PO BID 09/20/23 01/16/24 History magnesium) tablet omeprazole 20 mg capsule,delayed 20 mg PO DAILY 09/20/23 01/16/24 History release oxycodone 5 mg tablet 5 mg PO Q6H PRN Pain 09/20/23 01/16/24 History potassium chloride 20 mEq 20 meq PO BID 09/20/23 01/16/24 History tablet,extended release(part/cryst) ropinirole 2 mg tablet 2 mg PO HS 09/20/23 01/16/24 History sennosides 8.6 mg-docusate sodium 1 tab PO BID 09/20/23 01/16/24 History 50 mg tablet (Senna-Time S) tirzepatide 5 mg/0.5 mL 5 mg subcut WK 09/20/23 01/16/24 History subcutaneous pen injector (Mounjaro) tramadol 50 mg tablet 50 mg PO TID PRN Pain 09/20/23 01/16/24 History apixaban 2.5 mg tablet (Eliquis) 2.5 mg PO BID 10/24/23 01/16/24 History dicyclomine 20 mg tablet 20 mg PO QID PRN abdominal cramping 10/24/23 01/16/24 History duloxetine 30 mg capsule,delayed See Rx Instructions .Route .COMPLEX 10/24/23 01/16/24 History release triamcinolone acetonide 0.5 % 1 applic topical BID PRN chest rash 10/24/23 01/16/24 History topical cream levothyroxine 200 mcg tablet 200 mcg PO DAILYBB #30 tabs 12/07/23 01/16/24 Rx trazodone 100 mg tablet 50 mg (1/2 x 100 mg) PO HS #30 tabs 12/07/23 01/16/24 Rx cholecalciferol (vitamin D3) 25 25 mcg PO DAILY 01/16/24 01/16/24 History mcg (1,000 unit) tablet clopidogrel 75 mg tablet 75 mg PO DAILY 01/16/24 01/16/24 History Past Med/Surg History Medical History Fever Acute on chronic kidney failure Acute CHF Septic shock Sepsis secondary to UTI Transient hypotension UTI due to Klebsiella species Hypotension Acute pyelonephritis Hypomagnesemia Mitral valve stenosis Echo 06/2023: Borderline mild mitral stenosis secondary to severe mitral annular calcification Chronic hypoxemic respiratory failure Cataract, bilateral Lumbago with sciatica Lower extremity pain, bilateral Neuropathy feet On home oxygen therapy 3L continuous CHF (congestive heart failure) Follows with Dr. Woodall Subclavian artery stenosis Cerebrovascular duplex study 06/2023: Retrograde flow in the right vertebral artery. 50-69% proximal right subclavian artery stenosis. Antegrade flow in the left vertebral artery. Normal flow in the left subclavian artery. Carotid stenosis, right Cerebrovascular duplex 07/11/23: 80-99% R ICA stenosis. No hemodynamically significant stenosis in the LICA. Diabetes mellitus, type II CKD (chronic kidney disease), stage III Follows with [facility] ELISSA on CPAP CPAP + 3L O2 (O2 is continuous) HTN (hypertension) HLD (hyperlipidemia) Morbid obesity HIT (heparin-induced thrombocytopenia) 2008, [facility] then life flight to [place] > "resolved" Depression with anxiety Hypothyroidism History of pulmonary embolism 2008 s/p zoraida filter GERD (gastroesophageal reflux disease) RLS (restless legs syndrome) History of DVT (deep vein thrombosis) 2008 (during ICU [place] admission/PNA) Presence of IVC filter 2008 Fibromyalgia Surgical History Family history of reaction to anesthesia Brother/niece- PONV Brother- "wakes up violent" History of colostomy reversal History of tooth extraction History of arthroscopy left ankle History of incisional hernia repair Nausea and vomiting after administration of anesthetic agent History of colonoscopy History of cholecystectomy History of total right knee replacement History of tracheostomy 06/2009 (per [facility] records), secondary to acute respiratory failure in setting of PNA, reversed a few months later History of thyroidectomy, total 2010 History of colon resection secondary to R colon perforation, resected treated with colostomy and eventual reversal in 2008, Dr. Lerma Family History Father , age 74 Lung cancer Mother , age 45 Cirrhosis Social History Smoking Status: Former smoker Tobacco Type: Cigarettes Cigarettes Per Day: 1996; Second Hand Exposure: No; Do You Dip or Chew Tobacco: No; Hx Alcohol Use: No Hx Substance Use: No Preferred Language: Kyrgyz Communication Ability: Effective Agency Operator Required: No Beliefs That Will Affect Care: None marital status: Single Current Living Situation: Alone Current Living Situation Comment: Lives by self in apartment How many Children do You have: 0 Feels Safe at Home: Yes Assistive Devices: Oxygen - Continuous, Walker and Other Review of Systems Review of Systems: All systems reviewed & are unremarkable except as noted in HPI & below Physical Exam Physical Exam: Constitutional: WD/WN, acutely ill, morbidly obese, vitals as above, NAD, sitting up in bed, pleasant, conversing easily Head: Normocephalic, Atraumatic Eyes: PERRL, conjunctivae normal, anicteric sclerae ENMT: external ear and nose normal, oropharynx normal Neck: trachea midline, no thyromegaly normal visual inspection Respiratory: normal respiratory effort, lungs clear to auscultation, no wheeze, rales, rhonchi. Normal insp/exp effort, no accessory muscle use Cardiovascular: RRR, no murmur, no edema but obese lower extremities vessels: no JVD or carotid bruit Chest: normal inspection of chest Abdomen: normal bowel sounds, soft, tender to light palpation at right lower quadrant, no hepatosplenomegaly Musculoskeletal: no cyanosis or clubbing, extremities motor strength 5/5 Skin: no rashes, warm and dry normal turgor Neurologic: PERRL, EOMI, accommodation nl, no face palsy, no dysarthria CN's II-XI intact bilaterally and moves all extremities Psychiatric: A+Ox3, euthymic affect Lymphatic: no cervical or axillary lymphadenopathy : deferred Results & Data Results & Data Vital Signs (Past 12 Hours) Vital Signs Temp Pulse Resp BP Pulse Ox O2 Del Method O2 Flow Rate 01/16/24 07:42 90 20 93 Nasal Cannula 4 01/16/24 06:00 97 H 27 H 103/67 95 Nasal Cannula 4 01/16/24 05:30 101 H 23 105/68 95 Nasal Cannula 4 01/16/24 05:15 37.7 C H 104 H 19 103/71 94 Nasal Cannula 4 01/16/24 05:13 103 H Diagnostic Findings KUB X-Ray 01/16/24 05:40 KUB HISTORY: constipation COMPARISON: Abdomen and pelvis CT 11/24/2023. FINDINGS: The bowel gas pattern is unremarkable. There are no dilated loops of small bowel to suggest an obstruction. No renal calculi. No ureteral calculi. No pneumoperitoneum or pneumatosis. An IVC filter is noted. The proximal portion of the right ureteral stent is folded on itself. Prior cholecystectomy. IMPRESSION: 1. Nonobstructed bowel gas pattern. 2. The proximal portion of the right ureteral stent is folded on itself. Urology consultation recommended for repositioning. ACT 112: Negative or not required by law. Electronically signed by: Ernesto France M.D. 01/16/2024 7:51 AM Chest X-Ray 01/16/24 06:31 XR chest 1V portable HISTORY: 68 years-old Female fever COMPARISON: 11/26/2023, 10/24/2023 TECHNIQUE: Semierect AP view of the chest FINDINGS: Cardiac silhouette is enlarged. Chronic reticular interstitial opacities redemonstrated. There is no pneumothorax, pleural effusion or new airspace consolidation. Right carotid stent with adjacent surgical clips redemonstrated. Bones appear grossly intact. IMPRESSION: 1. Cardiomegaly without acute process of the chest. 2. Chronic interstitial coarsening suggestive of fibrosis. ACT 112: Negative or not required by law. The above report was generated using voice recognition software. It may contain grammatical, syntax or spelling errors. Electronically signed by: Enrico Gilliland M.D. 01/16/2024 6:58 AM Medications Administered Medication List Sodium Chloride (Nss) 500 mls @ 65 mls/hr IV .[id number] ROBERT Stop: 02/15/24 05:44 Last Admin: 01/16/24 05:37 Dose: 125 mls/hr Documented By: WANG Insulin Aspart (Insulin Aspart Per Unit Charge) 0 units SC ACHS ROBERT Stop: 02/15/24 08:14 Last Admin: 01/16/24 08:28 Dose: Not Given Documented By: VERONICA Co-signed By: LE Discontinued Medications Acetaminophen (Ofirmev) 1,000 mg in 100 mls @ 400 mls/hr IV NOW STA Stop: 01/16/24 05:54 Last Infusion: 01/16/24 06:17 Dose: Infused Documented By: Admin: 01/16/24 05:58 Dose: 400 mls/hr Documented By: WANG Ceftriaxone Sodium (Rocephin) 2,000 mg in 50 mls @ 100 mls/hr IV NOW STA Stop: 01/16/24 08:08 Last Admin: 01/16/24 08:16 Dose: 100 mls/hr Documented By: VERONICA ECG Additional Comments: I have independently reviewed and interpreted patient's admitting EKG which revealed: Sinus tachycardia with ventricular rate of 102 bpm, no ST or T wave changes noted, QTc 445 MS COVID-19 Results Results COVID-19 Adm Lab Results: RBC 3.96 M/uL (4.20-5.40) L 01/16/24 WBC 14.27 K/ul (4.8-10.8) H 01/16/24 Hgb 10.6 g/dl (12.0-16.0) L 01/16/24 Hct 35.2 % (37.0-47.0) L 01/16/24 Plt Count 328 K/uL (130-400) 01/16/24 Neutrophils (%) (Auto) 80.8 % 01/16/24 Lymphocytes (%) (Auto) 8.1 % 01/16/24 Monocytes # (Auto) 1.24 K/uL (0.11-0.59) H 01/16/24 Eosinophils # (Auto) 0.21 K/uL (0.00-0.50) 01/16/24 Immature Granulocyte % (Auto) 0.6 % 01/16/24 Neutrophils # (Auto) 11.54 K/uL (1.40-6.50) H 01/16/24 Lymphocytes # (Auto) 1.15 K/uL (1.20-3.40) L 01/16/24 Monocytes # (Auto) 1.24 K/uL (0.11-0.59) H 01/16/24 Eosinophils # (Auto) 0.21 K/uL (0.00-0.50) 01/16/24 Basophils # (Auto) 0.04 K/uL (0.00-0.20) 01/16/24 Immature Granulocyte # (Auto) 0.09 K/uL (0.01-0.20) 4 Na 133 mmol/L (136-145) L 01/16/24 K 3.9 mmol/L (3.5-5.1) 01/16/24 Cl 96 mmol/L (98-107) L 01/16/24 CO2 31 mmol/L (21-32) 01/16/24 Anion Gap 6 (3-11) 01/16/24 BUN 28 mg/dl (6-23) H 01/16/24 Creatinine 1.95 mg/dl (0.6-1.2) H 01/16/24 BUN/Creatinine Ratio 14.4 (10-20) 01/16/24 Glucose Level 158 mg/dl (70-99(Fasting)) H 01/16/24 Ca 9.2 mg/dl (8.6-10.3) 01/16/24 Total Bilirubin 0.6 mg/dl (0.2-1.0) 01/16/24 AST/SGOT 12 U/L (13-39) L 01/16/24 ALT/SGPT 5 U/L (7-52) L 01/16/24 Alkaline Phosphatase 87 U/L (34-104) 01/16/24 Total Protein 7.4 gm/dl (6.0-8.3) 01/16/24 Albumin 3.5 gm/dl (3.4-5.0) 01/16/24 Globulin 3.9 gm/dl (2.5-4.0) 01/16/24 Albumin/Globulin Ratio 0.9 (0.9-2) 01/16/24 Procalcitonin 0.16 ng/ml (0-0.5) 01/16/24 Adenovirus (PCR) Not Detected (NotDetected) 01/16/24 B. parapertussis DNA (PCR) Not Detected (NotDetected) 12/26 11/19 B. pertussis DNA (PCR) Not Detected (NotDetected) 01/16/24 C. pneumoniae DNA (PCR) Not Detected (NotDetected) 4 Coronavirus Type OC43 (PCR) Not Detected (NotDetected) Coronavirus Type HKU1 (PCR) Not Detected (NotDetected) Coronavirus Type 229E (PCR) Not Detected (NotDetected) COVID-19 PCR Not Detected (NotDetected) 01/16/24 Coronavirus Type NL63 (PCR) Not Detected (NotDetected) Human Metapneumovirus (PCR) Not Detected (NotDetected) Influenza Virus Type A (PCR) Not Detected (NotDetected) Influenza Virus Type B (PCR) Not Detected (NotDetected) M. pneumoniae (PCR) Not Detected (NotDetected) 01/16/24 Parainfluenza Type 1 (PCR) Not Detected (NotDetected) 12/26 11/19 Parainfluenza Type 2 (PCR) Not Detected (NotDetected) 12/26 11/19 Parainfluenza Type 3 (PCR) Not Detected (NotDetected) 12/26 11/19 Parainfluenza Type 4 (PCR) Not Detected (NotDetected) 12/26 11/19 RSV (PCR) Not Detected (NotDetected) 01/16/24 Enterovirus/Rhinovirus (PCR) Not Detected (NotDetected) Chest X-Ray 01/16/24 Code Status & VTE Plan Code Status FULL CODE VTE Prophylaxis Plan VTE Prophylaxis will be ordered: Yes Supervising Physician Co-Signing Physician Notes 68-year-old lady with PMH of IDDM 2, chronic hypoxic respiratory failure [4 L oxygen at home, multifactorial ISO CHF], diastolic CHF, cor pulmonale, interstitial lung disease, CKD stage III [baseline creatinine around 1.6], HTN, HLD, recurrent DVT status post IVC filter, transcarotid artery revascularization 09/09/2023, ELISSA on CPAP, heparin-induced thrombocytopenia, GERD, RLS, chronic constipation, chronic ambulatory dysfunction ISO knee pain presented to the ED 01/15 with complaint of fever for 2 days MASTER BLACK BELT associated with some 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 Of note patient has chronic constipation and takes milk of magnesia at home. Patient denies cough or sore throat or chest pain or headache or dizziness. She is being managed for the following: Right pyelonephritis Complicated UTI Sepsis: Secondary to above. Admitting heart rate/respiratory rate/WBC elevated. Procalcitonin and lactate WNL. Patient coming in with fever/not feeling well/right lower abdominal pain for 2 days MASTER BLACK BELT. Admitting WBC, heart rate, pulse rate elevated. Procalcitonin and lactate WNL. Admitting imagings: XR KUB: Proximal portion of the right ureteral stent is folded on itself CXR: No acute finding. Chronic interstitial coarsening suggestive of fibrosis CTAP: Persistent right perinephric fat stranding, right-sided pyelonephritis, severe right-sided hydronephrosis. No renal or ureteral calculi. Multiple ventral hernias. No bowel obstruction. Send urine culture, blood culture. Given her microbiologic history, start her on IV daptomycin. Get baseline CPK, hold statin if patient is on one. ID consult given recurrent complicated UTI. Urology consult given right ureteral stent complicated with right pyelonephritis. Gentle IV fluid for today. Acute kidney injury over CKD stage III: Baseline creatinine around 1.3-1.6, admitting creatinine of 1.95. Patient on gentle IV fluid. Labs in AM. Avoid nephrotoxic. Hold diuretics, BOOGIE/ARB's. Chronic hypoxic respiratory failure: On 4 L oxygen ELISSA on CPAP: Continue home CPAP Chronic diastolic CHF: Currently euvolemic, getting IV fluid for ELSIE over CKD and sepsis. Lactate WNL. Resume home diuretics when able. TCAR by Dr. Alas in 08/2023: Continue ASA, Plavix. Hold statin due to being on DAPT. Get CPK level at baseline. DVT status post IVC filter and history of PE: On home Eliquis 2.5 twice daily, hold Eliquis until urology eval if patient needs any urological manipulation. DVT prophylaxis: Patient on Eliquis. On exam: GENERAL: Alert and oriented x3. NAD, on 4L NC O2. Appear ill/sick/weak. Obese class III. HEENT: No pallor, no icterus. Pupils equal, round and reactive to light. Oral mucosa moist. NECK: No JVD, no neck masses. HEART: S1 and S2 heard. Regular rate and rhythm. No murmur, no gallop. RESPIRATORY SYSTEM: Normal AP diameter. No accessory muscle use. No wheezing, no crackles. ABDOMEN: Soft, bowel sounds present. Ventral hernia noted/non tender. low abd tender. CENTRAL NERVOUS SYSTEM: No facial droop. Speech is clear. Obeys simple commands. Moves extremities. EXTREMITIES: No edema, no erythema seen. I have seen and examined the patient and have discussed the case with the provider above. I agree with the assessment and plan as stated. (5) Abdominal pain Abdominal location: right lower quadrant Qualified Code(s): R10.31 - Right lower quadrant pain (6) Diabetes mellitus, type II Diabetes mellitus complication status: with hypoglycemia Diabetes mellitus rn long term care insulin use: with senior care use (8) HTN (hypertension) Hypertension type: primary hypertension Qualified Code(s): I10 - Essential (primary) hypertension
[2024-01-16] MEDS ORDERED: LANTUS PER UNIT CHARGE SQ SCH (09:00)
[2024-01-16] MEDS: HYDROmorphone INJ 0.5 MG/0.5 ML SYR IV STA (09:47)
[2024-01-16] MEDS: ONDANSETRON INJ 2 MG/ML 2 ML VIAL IV STA (09:47)
--- NOTE | 2024-01-16 10:05 | CT Scan Report ---
ABDOMEN AND PELVIS CT WITHOUT CONTRAST CT DOSE: 1493.32 mGy.cm HISTORY: Abnormal KUB. Evaluate stent placement, UTI, ELSIE TECHNIQUE: Multiaxial CT images of the abdomen and pelvis were performed without contrast. A dose lo wering technique was utilized adhering to the principles of ALARA. COMPARISON STUDY: Abdomen and pelvis CT 11/24/2023. FINDINGS: Interstitial thickening at the lung bases. This remains unchanged and is likely chronic. St able 2 mm nodule within the left lower lobe on image 22. No pneumoperitoneum. No pneumatosis. No susp icious lytic are blastic osseous lesions. There are few diverticula at the duodenum. There are scatte red jejunal diverticula again noted. Small midline epigastric hernia containing a knuckle of the dist al stomach, unchanged. Midline abdominal wall laxity with a small periumbilical hernia containing fat and a short segment of the transverse colon. This is also unchanged. There are few additional lower midline fat-containing ventral hernias. Prior cholecystectomy. The unenhanced liver, spleen, adrenal glands, and pancreas unremarkable. Normal left kidney. Moderate to severe right hydronephrosis to the level of the ureteropelvic junction. This is similar to the prior study. There is persistent right p erinephric fat stranding. A right ureteral stent is noted. The proximal portion of the stent is locat ed within the dilated right renal pelvis. Therefore, this is likely in good position. The distal sten t terminates in the bladder. No renal or ureteral calculi identified. No bladder calculi. No bladder wall thickening. The uterus and bilateral adnexa are unremarkable. No pelvic free fluid. Suboptimal e valuation for bowel pathology due to the lack of intravenous and oral contrast. However, there is no definite bowel wall thickening or obstruction. Normal appendix. Moderate calcified plaque within the normal caliber abdominal aorta. No retroperitoneal lymphadenopathy. IVC filter appears in good positi on. IMPRESSION: 1. Persistent right perinephric fat stranding. This may represent a right-sided pyelonephritis. Recom mend correlation with urinalysis. 2. Moderate to severe right-sided hydronephrosis, unchanged. However, the right ureteral stent appear s in good position. 3. No renal or ureteral calculi. 4. No definite bowel wall thickening or obstruction. 5. Multiple ventral hernias as described above. These are not significantly changed. ACT 112: Negative or not required by law. Electronically signed by: Ernesto France M.D. 01/16/2024 10:04 AM
--- NOTE | 2024-01-16 10:16 | Urology Consultation ---
Date of Consultation January 16, 2024 Assessment & Plan (1) Hydronephrosis: (2) Complicated urinary tract infection: (3) Ureteral stent retained: 68 yo/F admitted for suspected sepsis secondary to complicated UTI in setting of right ureteral stent placement. Patient currently afebrile, vitals with mild tachycardia Labs reviewedcreatinine 1.95, 14.27, hemoglobin 10.6 Urinalysis showed 2+ blood, 3+ LE, >50 WBC and 1+ bacteria Urine and blood cultures are pending Received Ceftriaxone in ED, started on Daptomycin CT A/P shows moderate to severe right-sided hydronephrosis, unchanged. Right ureteral stent in appropriate position. No renal or ureteral calculi. She reports right lower quadrant abdominal pain, constipation Recommendations: Continue to trend labs Continue broad-spectrum antibiotics and narrow per sensitivity data when available Continue gentle hydration and supportive care She may require right ureteral stent exchange if she has fevers/clinical worsening For now, will monitor with conservative management will follow History of Present Illness Reason for Consultation: ureteral stent, ELSIE, UTI Requesting Physician: Dr. Luevano Attending Physician: Dr. Castellanos History of Present Illness This is a 68-year-old female with past medical history of morbid obesity, type 2 diabetes, chronic hypoxic respiratory failure on supplemental oxygen, interstitial lung disease, obstructive sleep apnea on CPAP, CHF, CKD, history of DVT and PE, right hydronephrosis, hx of UTI/bacteremia, and multiple other comorbidities who presented to the emergency department today for evaluation of fatigue, decreased appetite, constipation and fevers. Of note, she was admitted to [facility] 11/20 to 12/07/2023 for ambulatory dysfunction and then subsequently developed urosepsis in the setting of ureteral obstruction requiring right ureteral stent placement on 11/25/[address] Arriaga. On arrival to ED, temperature of 37.7, tachycardia and SBPs 100s, saturating well on 4 L supplemental oxygen which is her baseline. Lab work reviewed and showed WBC 14.27, hemoglobin 10.6, sodium 133, creatinine 1.95. Urinalysis showed 1+ protein, 2+ blood, 3+ LE, >50 WBC, >20 RBC, 0-2 epithelial cells and 1+ bacteria. Urine and blood cultures obtained. Respiratory PCR panel was negative. She had a KUB which showed the proximal portion of the right ureteral stent possibly folded on itself. ED course: IV fluids, acetaminophen and ceftriaxone. She was admitted to the hospital medicine service for ELSIE, suspected sepsis, complicated UTI in the setting of right ureteral stent placement. Additional work-up with CT A/P showed persistent right perinephric fat stranding, moderate to severe right-sided hydronephrosis, unchanged. Right ureteral stent in appropriate position. No renal or ureteral calculi. Urology consulted for ureteral stent, ELSIE, UTI. She is known to our service for history of right hydronephrosis, status post right ureteral stent on 11/24. She was seen in outpatient f/u on 12/20 and plan was for right ureteroscopy, ureteral dilation, stent exchange in February. Patient seen and examined in the emergency department. She feels some improvement since arrival. Continues to have right lower abdominal pain. Denies flank pain. Reports last BM was 2 to 3 days ago. Reports some recent dysuria, no hematuria. Reports fever at home for the past few days. Also reports fatigue and feeling off when looking at her phone. Occasional nausea, no vomiting. She last ate yesterday evening. Allergies Allergy/AdvReac Type Severity Reaction Status Date / Time morphine Allergy Severe Swelling, Verified 11/20/23 10:52 "Violent reaction- almost " dapagliflozin [From Farxiga] Allergy Intermediate Yeast Verified 11/20/23 10:52 infections tetanus toxoid, adsorbed Allergy Intermediate Passed Verified 11/20/23 10:52 out, "got sick" as child bupropion [From Wellbutrin] AdvReac Intermediate Recurrent Verified 11/20/23 10:52 falls as per patient codeine AdvReac Intermediate Hallucinati Verified 11/20/23 10:52 ons empagliflozin AdvReac Intermediate Yeast Verified 11/20/23 10:52 [From Jardiance] infections heparin AdvReac Intermediate HIT, Verified 11/20/23 10:52 "Fluid in lungs" hydrocodone [From Vicodin] AdvReac Intermediate Drowsy Verified 11/20/23 10:52 Home Medications Medication Instructions Recorded Confirmed Type aspirin 81 mg tablet,delayed 81 mg PO DAILY 09/20/23 01/16/24 History release atorvastatin 20 mg tablet 20 mg PO DAILY 09/20/23 01/16/24 History baclofen 10 mg tablet 10 mg PO BID PRN Muscle Spasm 09/20/23 01/16/24 History clonazepam 0.5 mg tablet 0.5 mg PO TID 09/20/23 01/16/24 History duloxetine 60 mg capsule,delayed See Rx Instructions .Route .COMPLEX 09/20/23 01/16/24 History release furosemide 40 mg tablet 60 mg PO BID 09/20/23 01/16/24 History gabapentin 300 mg capsule 600 mg PO TID 09/20/23 01/16/24 History insulin aspart U-100 100 unit/mL 8 unit subcut UD 09/20/23 01/16/24 History (3 mL) subcutaneous pen (Novolog FlexPen U-100 Insulin aspart) insulin degludec 100 unit/mL (3 50 unit subcut HS 09/20/23 01/16/24 History mL) subcutaneous pen (Tresiba FlexTouch U-100 insulin) magnesium oxide 400 mg (241.3 mg 400 mg PO BID 09/20/23 01/16/24 History magnesium) tablet omeprazole 20 mg capsule,delayed 20 mg PO DAILY 09/20/23 01/16/24 History release oxycodone 5 mg tablet 5 mg PO Q6H PRN Pain 09/20/23 01/16/24 History potassium chloride 20 mEq 20 meq PO BID 09/20/23 01/16/24 History tablet,extended release(part/cryst) ropinirole 2 mg tablet 2 mg PO HS 09/20/23 01/16/24 History sennosides 8.6 mg-docusate sodium 1 tab PO BID 09/20/23 01/16/24 History 50 mg tablet (Senna-Time S) tirzepatide 5 mg/0.5 mL 5 mg subcut WK 09/20/23 01/16/24 History subcutaneous pen injector (Mounjaro) tramadol 50 mg tablet 50 mg PO TID PRN Pain 09/20/23 01/16/24 History apixaban 2.5 mg tablet (Eliquis) 2.5 mg PO BID 10/24/23 01/16/24 History dicyclomine 20 mg tablet 20 mg PO QID PRN abdominal cramping 10/24/23 01/16/24 History duloxetine 30 mg capsule,delayed See Rx Instructions .Route .COMPLEX 10/24/23 01/16/24 History release triamcinolone acetonide 0.5 % 1 applic topical BID PRN chest rash 10/24/23 01/16/24 History topical cream levothyroxine 200 mcg tablet 200 mcg PO DAILYBB #30 tabs 12/07/23 01/16/24 Rx trazodone 100 mg tablet 50 mg (1/2 x 100 mg) PO HS #30 tabs 12/07/23 01/16/24 Rx cholecalciferol (vitamin D3) 25 25 mcg PO DAILY 01/16/24 01/16/24 History mcg (1,000 unit) tablet clopidogrel 75 mg tablet 75 mg PO DAILY 01/16/24 01/16/24 History Patient History Medical History Fever Acute on chronic kidney failure Acute CHF Septic shock Sepsis secondary to UTI Transient hypotension UTI due to Klebsiella species Hypotension Acute pyelonephritis Hypomagnesemia Mitral valve stenosis Echo 06/2023: Borderline mild mitral stenosis secondary to severe mitral annular calcification Chronic hypoxemic respiratory failure Cataract, bilateral Lumbago with sciatica Lower extremity pain, bilateral Neuropathy feet On home oxygen therapy 3L continuous CHF (congestive heart failure) Follows with Dr. Woodall Subclavian artery stenosis Cerebrovascular duplex study 06/2023: Retrograde flow in the right vertebral artery. 50-69% proximal right subclavian artery stenosis. Antegrade flow in the left vertebral artery. Normal flow in the left subclavian artery. Carotid stenosis, right Cerebrovascular duplex 07/11/23: 80-99% R ICA stenosis. No hemodynamically significant stenosis in the LICA. Diabetes mellitus, type II CKD (chronic kidney disease), stage III Follows with [facility] ELISSA on CPAP CPAP + 3L O2 (O2 is continuous) HTN (hypertension) HLD (hyperlipidemia) Morbid obesity HIT (heparin-induced thrombocytopenia) 2009, [facility] then life flight to [place] > "resolved" Depression with anxiety Hypothyroidism History of pulmonary embolism 2008 s/p zoraida filter GERD (gastroesophageal reflux disease) RLS (restless legs syndrome) History of DVT (deep vein thrombosis) 2008 (during ICU [place] admission/PNA) Presence of IVC filter 2008 Fibromyalgia Surgical History Family history of reaction to anesthesia Brother/niece- PONV Brother- "wakes up violent" History of colostomy reversal History of tooth extraction History of arthroscopy left ankle History of incisional hernia repair Nausea and vomiting after administration of anesthetic agent History of colonoscopy History of cholecystectomy History of total right knee replacement History of tracheostomy 06/2009 (per [facility] records), secondary to acute respiratory failure in setting of PNA, reversed a few months later History of thyroidectomy, total 2010 History of colon resection secondary to R colon perforation, resected treated with colostomy and eventual reversal in 2008, Dr. Lerma Family History Father , age 74 Lung cancer Mother , age 45 Cirrhosis Social History Smoking Status: Former smoker Tobacco Type: Cigarettes Cigarettes Per Day: 1996; Second Hand Exposure: No; Do You Dip or Chew Tobacco: No; Hx Alcohol Use: No Hx Substance Use: No Preferred Language: Hungarian Communication Ability: Effective Beach Lifeguard Required: No Beliefs That Will Affect Care: None marital status: Single Current Living Situation: Alone Current Living Situation Comment: Lives by self in apartment How many Children do You have: 0 Feels Safe at Home: Yes Assistive Devices: Oxygen - Continuous, Walker and Other Review of Systems Review of Systems: ROS was performed with pertinent positives noted as above; all other systems negative Physical Exam Constitutional: no acute distress Eyes: no scleral abnormality Respiratory: + tachypneic; no respiratory distress supplemental oxygen in place Cardiovascular: Rate/Rhythm: + tachycardic Gastrointestinal (Abdomen): Percussion/Palpation: + abdomen tender (right lower quadrant) and abdomen soft; no guarding Musculoskeletal: Head/Neck/Chest: normocephalic Neurologic: moves all extremities and awake Psychiatric: Orientation: alert and oriented x 3 Genitourinary: no CVA tenderness Results & Data Vital Signs (Past 12 Hours) Vital Signs Temp Pulse Resp BP Pulse Ox O2 Del Method O2 Flow Rate 01/16/24 10:06 102 H 01/16/24 10:00 103 H 28 H 95 01/16/24 09:52 138/66 01/16/24 09:52 105 H 28 H 94 Nasal Cannula 4 01/16/24 09:50 97/68 L 01/16/24 09:50 105 H 21 94 01/16/24 09:00 90 15 97 01/16/24 08:00 90 22 93 Nasal Cannula 4 01/16/24 07:42 90 20 93 Nasal Cannula 4 01/16/24 07:30 36.9 C 135/58 L 01/16/24 07:30 89 22 92 01/16/24 07:01 131/86 01/16/24 07:01 92 01/16/24 07:00 94 01/16/24 06:00 97 H 27 H 103/67 95 Nasal Cannula 4 01/16/24 05:30 101 H 23 105/68 95 Nasal Cannula 4 01/16/24 05:15 37.7 C H 104 H 19 103/71 94 Nasal Cannula 4 01/16/24 05:13 103 H PG Care Time/CCT Total # of Minutes Spent Total Time Spent with Patient: Total time spent is greater than 50% in coordination of care (as documented) at patient's floor/unit and/or counseling patient: Coding Level of Care Code 06051 IN/OBS CONSULT LVL 3,45M Diagnoses Hydronephrosis N13.30 Hydronephrosis type: unspecified Complicated urinary tract infection N39.0 Ureteral stent retained Z96.0 (1) Hydronephrosis Hydronephrosis type: unspecified Qualified Code(s): N13.30 - Unspecified hydronephrosis
--- NOTE | 2024-01-16 10:54 | Pharmacy Report ---
Pharmacy Glycemic Short Note 2 - Date of Service January 16, 2024 - Glycemic Short BSG Results (Last 24 hours): 01/16/24 01/16/24 05:19 08:20 Glucose 158 H POC Glucose 117 H OUTPATIENT ANTIDIABETIC REGIMEN: * Tresiba 50 units HS, Novolog 8-8-10 esteban OMALLEY ASSESSMENT: * 68 year old admitted with fever/body aches - concerns for complicated UTI in setting of right ureteral stent. Patient currently NPO and urology consulted to determine if intervention is necessary. Patient known to pharmacy glycemic service from other admissions. Most recently admitted, 11/20-12/06 - insulin needs typically much less than outpatient dosing. Fasting BSG 117 mg/dL - per med list patient takes basal at HS. Will add scale for basal at HS. PLAN FOR INPATIENT GLYCEMIC CONTROL: * Hold outpatient oral diabetes medications * Basal insulin * Lantus 10-20 units SQ HS * Bolus insulin * NovoLog per scale ACHS or Q6hrs while NPO * Goal Range: Low 110 mg/dL - High 140 mg/dL * Correction Factor: 20 mg/dL/unit * Nutritional / Prandial insulin per carb ratio of 1 unit per 7 grams CHO consumed
--- NOTE | 2024-01-16 10:57 | Electrocardiogram Report ---
Test Reason : Blood Pressure : / mmHG Vent. Rate : 102 BPM Atrial Rate : 102 BPM P-R Int : 166 ms QRS Dur : 078 ms QT Int : 342 ms P-R-T Axes : 035 019 036 degrees QTc Int : 445 ms Sinus tachycardia Otherwise normal ECG When compared with ECG of 26-NOV-2023 21:21, No significant change was found Confirmed by Bright David ([id number]) on 01/16/2024 10:56:34 AM Referred By: REFERRED SELF Confirmed By:Bright David
[2024-01-16] MEDS: DULoxetine HCL 60 MG CAP PO SCH (12:22)
[2024-01-16] MEDS: CLOPIDOGREL BISULFATE 75 MG TAB PO SCH (12:22)
[2024-01-16] MEDS: ASPIRIN 81 MG ECTAB PO SCH (12:22)
[2024-01-16] MEDS: DAPTOmycin 500 MG in SYRINGE 0 ML IV SCH (12:22)
[2024-01-16] MEDS: DULoxetine HCL 30 MG CAP PO SCH (12:22)
[2024-01-16] MEDS ORDERED: GABAPENTIN 300 MG CAP PO SCH (14:00)
[2024-01-16] MEDS: GABAPENTIN 300 MG CAP PO SCH (14:55)
[2024-01-16] MEDS: clonazePAM 0.5 MG TAB PO SCH (14:55)
[2024-01-16] MEDS: oxyCODONE HCL IR 5 MG TAB (IMMEDIATE RELEASE) PO PRN (17:04)
[2024-01-16] MEDS: ACETAMINOPHEN 325 MG TAB PO PRN (19:23)
[2024-01-16] MEDS: DOCUSATE SODIUM/SENNA 50/8.6MG TAB PO SCH (21:40)
[2024-01-16] MEDS: POTASSIUM CHLORIDE CRTAB 20 MEQ TABCR PO SCH (21:40)
[2024-01-16] MEDS: APIXABAN 2.5 MG TAB PO SCH (21:40)
[2024-01-16] MEDS: traZODone HCL 50 MG TAB PO SCH (21:40)
[2024-01-16] MEDS: MAGNESIUM OXIDE 400 MG TAB PO SCH (21:40)
[2024-01-16] MEDS: rOPINIRole HCL 2 MG TABLET PO SCH (21:40)
[2024-01-16] MEDS: LANTUS PER UNIT CHARGE SQ SCH (21:41)
--- NOTE | 2024-01-17 02:26 | Communication Note ---
Date of Service: January 17, 2024 Patient noted to be febrile and with poor urine output as per RN. AP Persistent fever Poor urine output Complicated UTI, currently on daptomycin given past history Enterococcus Increase IVF rate Appropriate to add Cefepime to Daptomycin for gram-negative pathogen coverage until final urine CS resulted
[2024-01-17] MEDS: CEFEPIME 2,000 MG in SYRINGE 0 ML IV SCH (03:06)
[2024-01-17] MEDS: SODIUM CHLORIDE 0.9% 1,000 ML IV SCH (03:41)
[2024-01-17 03:51] LABS: A calco-baum cmplx NotReported Not Detected (NotDetected); Bact fragilis Not Reported Not Detected (NotDetected); Blood Culture Id Panel See PCR Comment (NotDetected); C auris Not Reported Not Detected (NotDetected); CTX-M Resistant Gene Not Detected (NotDetected); Calbicans Not Reported Not Detected (NotDetected); Candida glabrata Not Reported Not Detected (NotDetected); Candida krusei Not Reported Not Detected (NotDetected); Cneoformans/gatti Not Reported Not Detected (NotDetected); Cparapsilosis Not Reported Not Detected (NotDetected); E cloacae compx Not Reported Not Detected (NotDetected); Efaecalis Not Reported Not Detected (NotDetected); Efaecium Not Reported Not Detected (NotDetected); Enterobacterales Not Reported Not Detected (NotDetected); Escherichia coli Not Reported Not Detected (NotDetected); H influenzae Not Reported Not Detected (NotDetected); IMP Resistant Gene Not Detected (NotDetected); K aerogenes Not Reported Not Detected (NotDetected); KPC Resistant Gene Not Detected (NotDetected); Koxytoca Not Reported Not Detected (NotDetected); Kpneumoniae grp Not Reported Not Detected (NotDetected); Lmonocyt Not Reported Not Detected (NotDetected); N meningitidis Not Reported Not Detected (NotDetected); NDM Resistant Gene Not Detected (NotDetected); P aeruginosa Not Reported DETECTED (NotDetected); Proteus spp Not Reported Not Detected (NotDetected); Salmonella spp Not Reported Not Detected (NotDetected); Smarcescens Not Reported Not Detected (NotDetected); Staph lugdunensis Not Reported Not Detected (NotDetected); Staph spp. Not Reported Not Detected (NotDetected); Staphaureus Not Reported Not Detected (NotDetected); Staphepi Not Reported Not Detected (NotDetected); Stenmaltophilia Not Reported Not Detected (NotDetected); Strep agal(GrpB) Not Reported Not Detected (NotDetected); Strep pneum Not Reported Not Detected (NotDetected); Strep pyog (GrpA) Not Reported Not Detected (NotDetected); Strep spp Not Reported Not Detected (NotDetected); VIM Resistant Gene Not Detected (NotDetected)
[2024-01-17 04:00] LABS: Pseudomonas aeruginosa DETECTED (NotDetected)
[2024-01-17] MEDS: LEVOTHYROXINE SODIUM 200 MCG TABLET PO SCH (05:58)
[2024-01-17 06:55] LABS: Hematocrit (blood only) 34.9 % (37.0-47.0); Hemoglobin 10.5 g/dl (12.0-16.0); Mean Corpuscular Hemoglobin 26.9 pg (25.0-34.0); Mean Corpuscular Hgb Conc 30.1 g/dL (32.0-36.0); Mean Corpuscular Volume 89.5 fL (80.0-100.0); Mean Platelet Volume 10.1 fL (9.4-12.4); Platelet Count 299 K/uL (130-400); RDW Coefficient of Variation 16.9 % (11.5-14.5); RDW Standard Deviation 54.9 fL (36.4-46.3); White Blood Count 18.34 K/ul (4.8-10.8)
--- NOTE | 2024-01-17 07:02 | XRay Report ---
XR chest 1V portable HISTORY: tachypnea COMPARISON: Chest 01/16/2024. FINDINGS: No pneumothorax. No pleural effusions. The cardiac silhouette remains mildly enlarged. Diff use interstitial thickening persists. No new focal lung consolidations. No acute fractures. IMPRESSION: No change in the cardiomegaly and diffuse interstitial thickening. This may be chronic. ACT 112: Negative or not required by law. Electronically signed by: Ernesto France M.D. 01/17/2024 7:01 AM
[2024-01-17 07:17] LABS: BUN Creatinine Ratio 14.1 (10-20); Calcium 9.1 mg/dl (8.6-10.3); Est GFR (African American) 29.4 ml/min; Est GFR (Non-African American) 25.3 ml/min; Magnesium 2.2 mg/dl (1.7-2.4); Phosphorus 4.1 mg/dl (2.5-4.9); Potassium 4.3 mmol/L (3.5-5.1)
--- NOTE | 2024-01-17 07:44 | Urology Progress Note ---
Date of Service January 17, 2024 Assessment & Plan (1) Hydronephrosis: (2) Ureteral stent retained: (3) Complicated urinary tract infection: Plan: 68 yo/F admitted for suspected sepsis secondary to complicated UTI in setting of right ureteral stent placement. Patient febrile overnight with Tmax 39.3 Labs today-creatinine 1.98, WBC 18.34, hemoglobin 10.5 Urine culture 01/16/2024 with more than 3 types of organisms present, all moderate counts mixed probable skin jaylin Blood culture 09/29 with prelim showing gram-negative bacilli Currently on Daptomycin and cefepime added for additional coverage Continue broad-spectrum antibiotics and narrow per sensitivity data when available Plan of care reviewed with Dr. Serrano Right ureteral stent is in good position on CT imaging Recommend continue antibiotics and supportive care for right pyelonephritis She may continue to have intermittent fevers Can consider right ureteral stent exchange if worsening clinical status or ongoing fevers No acute intervention today will follow Admission and Anticipated Discharge Date Admission Date: January 16, 2024 Subjective Patient seen and examined at bedside this morning She is resting in bed, no apparent distress Reports right lower abdominal pain is improved today Reports she had a bowel movement Reports fever/chills overnight She is voiding via pure wick catheter No dysuria at present No nausea/vomiting Review of Systems Constitutional: as per Subjective / HPI Gastrointestinal: as per Subjective / HPI Genitourinary: as per Subjective / HPI Physical Exam Constitutional: + obese; no acute distress Respiratory: no respiratory distress and no labored breathing Supplemental oxygen in place Gastrointestinal (Abdomen): Inspection/Auscultation: abdomen normal to inspection Percussion/Palpation: abdomen soft; abdomen nontender Musculoskeletal: Head/Neck/Chest: normocephalic Neurologic: moves all extremities and awake Psychiatric: Orientation: alert and oriented x 3 Results & Data Vital Signs (Past 12 Hours) Vital Signs Temp Pulse Pulse Resp BP Pulse Ox O2 Del Method 01/17/24 07:31 37.2 C 96 H 19 159/50 H 95 Nasal Cannula 01/17/24 05:57 37.3 C 01/17/24 03:43 20 Nasal Cannula 01/17/24 03:10 37.2 C 99 H 24 121/63 94 Nasal Cannula 01/17/24 02:00 105 H 01/17/24 01:58 39 C H 18 L 30 H 117/69 91 Nasal Cannula 01/17/24 01:18 110 H 20 117/56 L Nasal Cannula 01/17/24 01:10 39.3 C H 01/16/24 23:40 37.7 C H 105 H 28 H 132/62 93 Nasal Cannula 01/16/24 22:38 Nasal Cannula 01/16/24 21:55 96 H 01/16/24 20:22 37.2 C O2 Flow Rate 01/17/24 07:31 5 01/17/24 05:57 01/17/24 03:43 5 01/17/24 03:10 4.5 01/17/24 02:00 01/17/24 01:58 5 01/17/24 01:18 4 01/17/24 01:10 01/16/24 23:40 4.5 01/16/24 22:38 4 01/16/24 21:55 01/16/24 20:22 PG Care Time/CCT Total # of Minutes Spent Total Time Spent with Patient: Total time spent is greater than 50% in coordination of care (as documented) at patient's floor/unit and/or counseling patient: Coding Level of Care Code 23585 SUB INP/OBS CARE 2/35MIN Diagnoses Hydronephrosis N13.30 Hydronephrosis type: unspecified Ureteral stent retained Z96.0 Complicated urinary tract infection N39.0 (1) Hydronephrosis Hydronephrosis type: unspecified Qualified Code(s): N13.30 - Unspecified hydronephrosis
[2024-01-17] MEDS: INSULIN ASPART PER UNIT CHARGE SC SCH ×2 (08:39→21:00)
[2024-01-17] MEDS: PANTOprazole 40 MG TAB PO SCH (09:30)
--- NOTE | 2024-01-17 12:39 | Hospitalist Progress Note ---
Date of Service January 17, 2024 Assessment & Plan (1) Sepsis: (2) Complicated urinary tract infection: (3) Acute renal failure superimposed on stage 3 chronic kidney disease: (4) Ureteral stent retained: (5) Abdominal pain: (6) Diabetes mellitus, type II: (7) ELISSA on CPAP: (8) HTN (hypertension): (9) History of pulmonary embolism: (10) Chronic diastolic heart failure: (11) Chronic hypoxemic respiratory failure: Plan 68-year-old lady with PMH of IDDM 2, chronic hypoxic respiratory failure [4 L oxygen at home, multifactorial ISO CHF], diastolic CHF, cor pulmonale, interstitial lung disease, CKD stage III [baseline creatinine around 1.6], HTN, HLD, recurrent DVT status post IVC filter, transcarotid artery revascularization 09/09/2023, ELISSA on CPAP, heparin-induced thrombocytopenia, GERD, RLS, chronic constipation, chronic ambulatory dysfunction ISO knee pain presented to the ED 01/15 with complaint of fever for 2 days [employer] associated with some 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 Of note patient has chronic constipation and takes milk of magnesia at home. Patient denies cough or sore throat or chest pain or headache or dizziness. She is being managed for the following: Right pyelonephritis iso indwelling ureteral stent Complicated UTI Sepsis: Secondary to above. Admitting heart rate/respiratory rate/WBC elevated. Procalcitonin and lactate WNL. Bacteremia: likely 2/2 right pyelonephritis Patient coming in with fever/not feeling well/right lower abdominal pain for 2 days [employer]. Admitting WBC, heart rate, pulse rate elevated. Procalcitonin and lactate WNL. Admitting imagings: XR KUB: Proximal portion of the right ureteral stent is folded on itself CXR: No acute finding. Chronic interstitial coarsening suggestive of fibrosis CTAP: Persistent right perinephric fat stranding, right-sided pyelonephritis, severe right-sided hydronephrosis. No renal or ureteral calculi. Multiple ventral hernias. No bowel obstruction. Urine culture appears contaminated. Resent urine culture. Admitting blood culture with gram-negative bacteremia, follow final culture and sensitivity. Patient received Rocephin and daptomycin 01/15, changed to cefepime 01/16. Patient was febrile overnight, has been afebrile since change in antibiotic. Urology evaluating, appreciate recommendation. Conservative management for now. ID has been consulted, await recommendation. Continue with gentle IV fluid. Patient still with poor appetite. Acute kidney injury over CKD stage III, likely ATN: Baseline creatinine around 1.3-1.6, admitting creatinine of 1.95. Patient on gentle IV fluid. Labs in AM. Avoid nephrotoxic. Hold diuretics, BOOGIE/ARB's. Cr not improving, IVF rate increased. if Cr not improving alfonso, consider nephro and re-image abd/pelvis Chronic hypoxic respiratory failure: On 4 L oxygen ELISSA on CPAP: Continue home CPAP Chronic diastolic CHF: Currently euvolemic, getting IV fluid for ELSIE over CKD and sepsis. Lactate WNL. Resume home diuretics when able. TCAR by Dr. Alas in 08/2023: Continue ASA, Plavix. resume statin in 1-2 days. recently got dapto. DVT status post IVC filter and history of PE: On home Eliquis 2.5 twice daily, continue. DVT prophylaxis: Patient on Eliquis. Admission and Anticipated Discharge Date Admission Date: January 16, 2024 Subjective Patient was seen and examined at bedside. Patient was lying in bed, on 5 L oxygen via nasal cannula, not in acute distress. Overnight patient had fever, antibiotic changed to cefepime and daptomycin was put on hold, patient has been afebrile. Patient reports lack of hunger, does continue to have lower abdominal pain. She is voiding via pure wick catheter. Denies nausea and vomiting. Physical Exam Physical Exam: GENERAL: Alert and oriented x3. NAD, on 5L NC O2. Appear ill/sick/weak. Obese class III. HEENT: No pallor, no icterus. Pupils equal, round and reactive to light. Oral mucosa moist. NECK: No JVD, no neck masses. HEART: S1 and S2 heard. Regular rate and rhythm. No murmur, no gallop. RESPIRATORY SYSTEM: Normal AP diameter. No accessory muscle use. No wheezing, no crackles. ABDOMEN: Soft, bowel sounds present. Ventral hernia noted/non tender. low abd tender. CENTRAL NERVOUS SYSTEM: No facial droop. Speech is clear. Obeys simple commands. Moves extremities. EXTREMITIES: No edema, no erythema seen. Results & Data Results & Data Vital Signs (Past 12 Hours) Vital Signs Temp Pulse Resp BP Pulse Ox O2 Del Method O2 Flow Rate 01/17/24 11:59 37.6 C H 97 H 19 125/50 L 95 Nasal Cannula 5 01/17/24 11:34 Nasal Cannula 4 01/17/24 07:31 37.2 C 96 H 19 159/50 H 95 Nasal Cannula 5 01/17/24 05:57 37.3 C 01/17/24 03:43 20 Nasal Cannula 5 01/17/24 03:10 37.2 C 99 H 24 121/63 94 Nasal Cannula 4.5 01/17/24 02:00 105 H 01/17/24 01:58 39 C H 18 L 30 H 117/69 91 Nasal Cannula 5 01/17/24 01:18 110 H 20 117/56 L Nasal Cannula 4 01/17/24 01:10 39.3 C H (5) Abdominal pain Abdominal location: right lower quadrant Qualified Code(s): R10.31 - Right lower quadrant pain (6) Diabetes mellitus, type II Diabetes mellitus complication status: with hypoglycemia Diabetes mellitus intermediate insulin use: with long term care phlebotomist use (8) HTN (hypertension) Hypertension type: primary hypertension Qualified Code(s): I10 - Essential (primary) hypertension
--- NOTE | 2024-01-17 13:04 | Infectious Disease Consult ---
<Statement entered by Rubén Krishnan, DO - 01/17/24 17:09> ATTESTATION: I saw and evaluated the patient today. I have reviewed the trainee note and agree. My additional thoughts/findingsor any changes to the planare listed below. CLINICAL TEAM: Infectious Diseases Team 4 HISTORY OF PRESENT ILLNESS: The patient was admitted for fever (in the context of a ureteral stent placement). Workup revealed Pseudomonas bacteremia and R perinephric stranding. The patient was seen by Urology and they are considering stent exchange. IMPRESSION: 1. Pseudomonas bacteremia 2. Suspected complicated UTI RECOMMENDATIONS: 1. Continue cefepime (discuss dose with your pharmacy) 2. If no gram positives on culture, discontinue daptomycin 3. If worsening sepsis despite cefepime, give a dose of aminoglycoside (tobra or gentamicin) 4. Repeat BCX q48h until clear COMMENT(S): Contact Infectious Diseases as needed for updated recommendations (use the on- call schedule to find out who is covering your facility). REVENUE MANAGEMENT: I spent a total of 60 minutes coordinating, documenting, andproviding care for this patient excluding time spent in performance ofseparately billed services. Date of Service January 17, 2024 Telehealth Information I performed this visit using a real-time telehealth connection between my location and the patients location ([facility]). After connecting through interactive tele-video, patient was identified by name and date of and/or wristband check.Patient (or authorized healthcare sales representative printing supplies) was informed that this was a telemedicine visit and it was being conducted confidentially over secure lines. My office door was closed and no one else was present in the room with me.Patient (or authorized healthcare sales representative printing supplies) provided consent to proceed with the visit, expressed an understanding of privacy and security of the telemedicine visit, and gave permission to have a hospital sales representative printing supplies in the room in order to assist with the visit and to conduct portions of the visit, as needed. I informed the patient (or authorized healthcare sales representative printing supplies) that I reviewed their record and presented the opportunity for them to ask any questions regarding the visit today. The patient agreed to participate. Assessment & Plan (1) Ureteral stent retained: (2) Complicated urinary tract infection: (3) Ambulatory dysfunction: Plan Patient presenting with fevers and right-sided abdominal pain found to have GNR bacteremia. Urine cultures have mixed growth consistent w/ contamination. She had recent E faecium infection after ureteral obstruction s/p stent placement. Stent appropriately placed per imaging. -Continue dapto and cefepime for now -Stop dapto tomorrow if no GPC in blood by then -F/u ID and sensi -Consider urology evaluation given quick uti recurrence and ongoing hydronephrosis History of Present Illness History of Present Illness Pt w/ pmhx of T2DM, CKD III as well as many other chronic conditions (see below) who presented with several days of fever and some confusion. She had a recent hospitalization 11/20-12/06 for severe ambulatory dysfunction and the course was complicated by ureteral obstruction requiring right ureteral stent placement. Cultures at that time grew E Faecium. This admission, she experienced confusion as well as right lower quadrant abdominal pain. WBC on admission was 14.27 UA w/ > 50 white cells, 1+ bacteria. CT AP show right perinephric fat stranding w/ unchanged hydronephrosis; stent remains in appropriate position. She is currently receiving daptomycin and cefepime. Blood cultures are growing a GNR, mixed growth on urine cultures. Allergies Allergy/AdvReac Type Severity Reaction Status Date / Time morphine Allergy Severe Swelling, Verified 11/20/23 10:52 "Violent reaction- almost " dapagliflozin [From Farxiga] Allergy Intermediate Yeast Verified 11/20/23 10:52 infections tetanus toxoid, adsorbed Allergy Intermediate Passed Verified 11/20/23 10:52 out, "got sick" as child bupropion [From Wellbutrin] AdvReac Intermediate Recurrent Verified 11/20/23 10:52 falls as per patient codeine AdvReac Intermediate Hallucinati Verified 11/20/23 10:52 ons empagliflozin AdvReac Intermediate Yeast Verified 11/20/23 10:52 [From Jardiance] infections heparin AdvReac Intermediate HIT, Verified 11/20/23 10:52 "Fluid in lungs" hydrocodone [From Vicodin] AdvReac Intermediate Drowsy Verified 11/20/23 10:52 Home Medications Medication Instructions Recorded Confirmed Type aspirin 81 mg tablet,delayed 81 mg PO DAILY 09/20/23 01/16/24 History release atorvastatin 20 mg tablet 20 mg PO DAILY 09/20/23 01/16/24 History baclofen 10 mg tablet 10 mg PO BID PRN Muscle Spasm 09/20/23 01/16/24 History clonazepam 0.5 mg tablet 0.5 mg PO TID 09/20/23 01/16/24 History duloxetine 60 mg capsule,delayed See Rx Instructions .Route .COMPLEX 09/20/23 01/16/24 History release furosemide 40 mg tablet 60 mg PO BID 09/20/23 01/16/24 History gabapentin 300 mg capsule 600 mg PO TID 09/20/23 01/16/24 History insulin aspart U-100 100 unit/mL 8 unit subcut UD 09/20/23 01/16/24 History (3 mL) subcutaneous pen (Novolog FlexPen U-100 Insulin aspart) insulin degludec 100 unit/mL (3 50 unit subcut HS 09/20/23 01/16/24 History mL) subcutaneous pen (Tresiba FlexTouch U-100 insulin) magnesium oxide 400 mg (241.3 mg 400 mg PO BID 09/20/23 01/16/24 History magnesium) tablet omeprazole 20 mg capsule,delayed 20 mg PO DAILY 09/20/23 01/16/24 History release oxycodone 5 mg tablet 5 mg PO Q6H PRN Pain 09/20/23 01/16/24 History potassium chloride 20 mEq 20 meq PO BID 09/20/23 01/16/24 History tablet,extended release(part/cryst) ropinirole 2 mg tablet 2 mg PO HS 09/20/23 01/16/24 History sennosides 8.6 mg-docusate sodium 1 tab PO BID 09/20/23 01/16/24 History 50 mg tablet (Senna-Time S) tirzepatide 5 mg/0.5 mL 5 mg subcut WK 09/20/23 01/16/24 History subcutaneous pen injector (Mounjaro) tramadol 50 mg tablet 50 mg PO TID PRN Pain 09/20/23 01/16/24 History apixaban 2.5 mg tablet (Eliquis) 2.5 mg PO BID 10/24/23 01/16/24 History dicyclomine 20 mg tablet 20 mg PO QID PRN abdominal cramping 10/24/23 01/16/24 History duloxetine 30 mg capsule,delayed See Rx Instructions .Route .COMPLEX 10/24/23 01/16/24 History release triamcinolone acetonide 0.5 % 1 applic topical BID PRN chest rash 10/24/23 01/16/24 History topical cream levothyroxine 200 mcg tablet 200 mcg PO DAILYBB #30 tabs 12/07/23 01/16/24 Rx trazodone 100 mg tablet 50 mg (1/2 x 100 mg) PO HS #30 tabs 12/07/23 01/16/24 Rx cholecalciferol (vitamin D3) 25 25 mcg PO DAILY 01/16/24 01/16/24 History mcg (1,000 unit) tablet clopidogrel 75 mg tablet 75 mg PO DAILY 01/16/24 01/16/24 History Patient History Medical History Fever Acute on chronic kidney failure Acute CHF Septic shock Sepsis secondary to UTI Transient hypotension UTI due to Klebsiella species Hypotension Acute pyelonephritis Hypomagnesemia Mitral valve stenosis Echo 06/2023: Borderline mild mitral stenosis secondary to severe mitral annular calcification Chronic hypoxemic respiratory failure Cataract, bilateral Lumbago with sciatica Lower extremity pain, bilateral Neuropathy feet On home oxygen therapy 3L continuous CHF (congestive heart failure) Follows with Dr. Woodall Subclavian artery stenosis Cerebrovascular duplex study 06/2023: Retrograde flow in the right vertebral artery. 50-69% proximal right subclavian artery stenosis. Antegrade flow in the left vertebral artery. Normal flow in the left subclavian artery. Carotid stenosis, right Cerebrovascular duplex 07/11/23: 80-99% R ICA stenosis. No hemodynamically significant stenosis in the LICA. Diabetes mellitus, type II CKD (chronic kidney disease), stage III Follows with [facility] ELISSA on CPAP CPAP + 3L O2 (O2 is continuous) HTN (hypertension) HLD (hyperlipidemia) Morbid obesity HIT (heparin-induced thrombocytopenia) 2009, [facility] then life flight to [place] > "resolved" Depression with anxiety Hypothyroidism History of pulmonary embolism 2008 s/p zoraida filter GERD (gastroesophageal reflux disease) RLS (restless legs syndrome) History of DVT (deep vein thrombosis) 2008 (during ICU [place] admission/PNA) Presence of IVC filter 2008 Fibromyalgia Surgical History Family history of reaction to anesthesia Brother/niece- PONV Brother- "wakes up violent" History of colostomy reversal History of tooth extraction History of arthroscopy left ankle History of incisional hernia repair Nausea and vomiting after administration of anesthetic agent History of colonoscopy History of cholecystectomy History of total right knee replacement History of tracheostomy 06/2009 (per [facility] records), secondary to acute respiratory failure in setting of PNA, reversed a few months later History of thyroidectomy, total 2010 History of colon resection secondary to R colon perforation, resected treated with colostomy and eventual reversal in 2008, Dr. Leram Family History Father , age 74 Lung cancer Mother , age 45 Cirrhosis Social History Smoking Status: Never smoker Tobacco Type: Cigarettes Cigarettes Per Day: 1996; Second Hand Exposure: No; Do You Dip or Chew Tobacco: No; Hx Alcohol Use: No Hx Substance Use: No Preferred Language: Occitan Communication Ability: Effective Pigs Feet Finisher Required: No Beliefs That Will Affect Care: None marital status: Single Current Living Situation: Alone Current Living Situation Comment: Lives by self in apartment How many Children do You have: 0 Feels Safe at Home: Yes Assistive Devices: Oxygen - Continuous, Walker and Wheelchair Review of Systems Full ROS was performed and is negative unless mentioned in the HPI. Physical Exam Limited by telemed alert and oriented comfortable appearing Results & Data Vital Signs (Past 12 Hours) Vital Signs Temp Pulse Resp BP Pulse Ox O2 Del Method O2 Flow Rate 01/17/24 11:59 37.6 C H 97 H 19 125/50 L 95 Nasal Cannula 5 01/17/24 11:34 Nasal Cannula 4 01/17/24 07:31 37.2 C 96 H 19 159/50 H 95 Nasal Cannula 5 01/17/24 05:57 37.3 C 01/17/24 03:43 20 Nasal Cannula 5 01/17/24 03:10 37.2 C 99 H 24 121/63 94 Nasal Cannula 4.5 01/17/24 02:00 105 H 01/17/24 01:58 39 C H 18 L 30 H 117/69 91 Nasal Cannula 5 01/17/24 01:18 110 H 20 117/56 L Nasal Cannula 4 01/17/24 01:10 39.3 C H Laboratory Results Laboratory Results - last 72 hr 04/22/24 04/22/24 04/22/24 05:12 05:19 06:45 WBC 14.27 H RBC 3.96 L Hgb 10.6 L Hct 35.2 L MCV 88.9 MCH 26.8 MCHC 30.1 L RDW Std Deviation 53.5 H RDW Coeff of Adolfo 16.3 H Plt Count 328 MPV 10.0 Immature Gran % (Auto) 0.6 Neut % (Auto) 80.8 Lymph % (Auto) 8.1 [place] % (Auto) 8.7 Eos % (Auto) 1.5 Baso % (Auto) 0.3 Neut # (Auto) 11.54 H Lymph # (Auto) 1.[address] [place] # (Auto) 1.24 H Eos # (Auto) 0.21 Baso # (Auto) 0.04 Immature Gran # (Auto) 0.09 Sodium 133 L Potassium 3.9 Chloride 96 L Carbon Dioxide 31 Anion Gap 6 BUN 28 H Creatinine 1.95 H Est Cr Clr Drug Dosing 37.1 Est GFR ( Amer) 29.9 Est GFR (Non-Af Amer) 25.8 BUN/Creatinine Ratio 14.4 Glucose 158 H POC Glucose Lactate Calcium 9.2 Phosphorus Magnesium 2.0 Total Bilirubin 0.6 AST 12 L ALT 5 L Alkaline Phosphatase 87 Total Creatine Kinase 33 Total Protein 7.4 Albumin 3.5 Globulin 3.9 Albumin/Globulin Ratio 0.9 Procalcitonin 0.16 Urine Color Yellow Urine Appearance Cloudy A Urine pH 7.5 Ur Specific Bulger 1.012 Urine Protein 1+ H Urine Glucose (UA) Negative Urine Ketones Negative Urine Blood 2+ H Urine Nitrite Negative Urine Bilirubin Negative Urine Urobilinogen Negative Ur Leukocyte Esterase 3+ H Urine WBC (Auto) >50 H Urine RBC (Auto) >20 H U Hyaline Cast (Auto) 3-5 H U Epithel Cells (Auto) 0-2 Urine Bacteria (Auto) 1+ H Adenovirus (PCR) Not Detected B. pertussis DNA (PCR) Not Detected B.parapertussis DNA PCR Not Detected C. pneumoniae DNA (PCR) Not Detected Coronavirus OC43 (PCR) Not Detected Coronavirus HKU1 (PCR) Not Detected Coronavirus 229E (PCR) Not Detected SARS-CoV-2 (PCR) Not Detected Coronavirus NL63 (PCR) Not Detected Human Metapneumovir PCR Not Detected Influenza Type A (PCR) Not Detected Influenza Type B (PCR) Not Detected M. pneumoniae (PCR) Not Detected Parainfluenza 1 (PCR) Not Detected Parainfluenza 2 (PCR) Not Detected Parainfluenza 3 (PCR) Not Detected Parainfluenza 4 (PCR) Not Detected RSV (PCR) Not Detected Entero/Rhino (PCR) Not Detected P. aeruginosa (PCR) blaIMP Car res Gene PCR KPC-Carbap Res Gene PCR blaNDM Car Res Gene PCR blaVIM Car Res Gene PCR CTX-M Gene Resistance (PCR) Bld Cult ID Panel PCR 01/16/24 01/16/24 01/16/24 08:08 08:20 08:49 WBC RBC Hgb Hct MCV MCH MCHC RDW Std Deviation RDW Coeff of Adolfo Plt Count MPV Immature Gran % (Auto) Neut % (Auto) Lymph % (Auto) [place] % (Auto) Eos % (Auto) Baso % (Auto) Neut # (Auto) Lymph # (Auto) [place] # (Auto) Eos # (Auto) Baso # (Auto) Immature Gran # (Auto) Sodium Potassium Chloride Carbon Dioxide Anion Gap BUN Creatinine Est Cr Clr Drug Dosing Est GFR ( Amer) Est GFR (Non-Af Amer) BUN/Creatinine Ratio Glucose POC Glucose 117 H Lactate 1.3 Calcium Phosphorus Magnesium Total Bilirubin AST ALT Alkaline Phosphatase Total Creatine Kinase Total Protein Albumin Globulin Albumin/Globulin Ratio Procalcitonin Urine Color Urine Appearance Urine pH Ur Specific Bulger Urine Protein Urine Glucose (UA) Urine Ketones Urine Blood Urine Nitrite Urine Bilirubin Urine Urobilinogen Ur Leukocyte Esterase Urine WBC (Auto) Urine RBC (Auto) U Hyaline Cast (Auto) U Epithel Cells (Auto) Urine Bacteria (Auto) Adenovirus (PCR) B. pertussis DNA (PCR) B.parapertussis DNA PCR C. pneumoniae DNA (PCR) Coronavirus OC43 (PCR) Coronavirus HKU1 (PCR) Coronavirus 229E (PCR) SARS-CoV-2 (PCR) Coronavirus NL63 (PCR) Human Metapneumovir PCR Influenza Type A (PCR) Influenza Type B (PCR) M. pneumoniae (PCR) Parainfluenza 1 (PCR) Parainfluenza 2 (PCR) Parainfluenza 3 (PCR) Parainfluenza 4 (PCR) RSV (PCR) Entero/Rhino (PCR) P. aeruginosa (PCR) DETECTED A blaIMP Car res Gene PCR Not Detected KPC-Carbap Res Gene PCR Not Detected blaNDM Car Res Gene PCR Not Detected blaVIM Car Res Gene PCR Not Detected CTX-M Gene Resistance (PCR) Not Detected Bld Cult ID Panel PCR See PCR Comment 01/16/24 01/16/24 01/16/24 12:11 16:20 20:31 WBC RBC Hgb Hct MCV MCH MCHC RDW Std Deviation RDW Coeff of Adolfo Plt Count MPV Immature Gran % (Auto) Neut % (Auto) Lymph % (Auto) [place] % (Auto) Eos % (Auto) Baso % (Auto) Neut # (Auto) Lymph # (Auto) [place] # (Auto) Eos # (Auto) Baso # (Auto) Immature Gran # (Auto) Sodium Potassium Chloride Carbon Dioxide Anion Gap BUN Creatinine Est Cr Clr Drug Dosing Est GFR ( Amer) Est GFR (Non-Af Amer) BUN/Creatinine Ratio Glucose POC Glucose 113 H 94 124 H Lactate Calcium Phosphorus Magnesium Total Bilirubin AST ALT Alkaline Phosphatase Total Creatine Kinase Total Protein Albumin Globulin Albumin/Globulin Ratio Procalcitonin Urine Color Urine Appearance Urine pH Ur Specific Bulger Urine Protein Urine Glucose (UA) Urine Ketones Urine Blood Urine Nitrite Urine Bilirubin Urine Urobilinogen Ur Leukocyte Esterase Urine WBC (Auto) Urine RBC (Auto) U Hyaline Cast (Auto) U Epithel Cells (Auto) Urine Bacteria (Auto) Adenovirus (PCR) B. pertussis DNA (PCR) B.parapertussis DNA PCR C. pneumoniae DNA (PCR) Coronavirus OC43 (PCR) Coronavirus HKU1 (PCR) Coronavirus 229E (PCR) SARS-CoV-2 (PCR) Coronavirus NL63 (PCR) Human Metapneumovir PCR Influenza Type A (PCR) Influenza Type B (PCR) M. pneumoniae (PCR) Parainfluenza 1 (PCR) Parainfluenza 2 (PCR) Parainfluenza 3 (PCR) Parainfluenza 4 (PCR) RSV (PCR) Entero/Rhino (PCR) P. aeruginosa (PCR) blaIMP Car res Gene PCR KPC-Carbap Res Gene PCR blaNDM Car Res Gene PCR blaVIM Car Res Gene PCR CTX-M Gene Resistance (PCR) Bld Cult ID Panel PCR 01/17/24 01/17/24 01/17/24 05:46 07:30 10:52 WBC 18.34 H RBC 3.90 L Hgb 10.5 L Hct 34.9 L MCV 89.5 MCH 26.9 MCHC 30.1 L RDW Std Deviation 54.9 H RDW Coeff of Adolfo 16.9 H Plt Count 299 MPV 10.1 Immature Gran % (Auto) Neut % (Auto) Lymph % (Auto) [place] % (Auto) Eos % (Auto) Baso % (Auto) Neut # (Auto) Lymph # (Auto) [place] # (Auto) Eos # (Auto) Baso # (Auto) Immature Gran # (Auto) Sodium 137 Potassium 4.3 Chloride 98 Carbon Dioxide 33 H Anion Gap 6 BUN 28 H Creatinine 1.98 H Est Cr Clr Drug Dosing 37.0 Est GFR ( Amer) 29.4 Est GFR (Non-Af Amer) 25.3 BUN/Creatinine Ratio 14.1 Glucose 107 H POC Glucose 98 111 H Lactate Calcium 9.1 Phosphorus 4.1 Magnesium 2.2 Total Bilirubin AST ALT Alkaline Phosphatase Total Creatine Kinase Total Protein Albumin Globulin Albumin/Globulin Ratio Procalcitonin Urine Color Urine Appearance Urine pH Ur Specific Bulger Urine Protein Urine Glucose (UA) Urine Ketones Urine Blood Urine Nitrite Urine Bilirubin Urine Urobilinogen Ur Leukocyte Esterase Urine WBC (Auto) Urine RBC (Auto) U Hyaline Cast (Auto) U Epithel Cells (Auto) Urine Bacteria (Auto) Adenovirus (PCR) B. pertussis DNA (PCR) B.parapertussis DNA PCR C. pneumoniae DNA (PCR) Coronavirus OC43 (PCR) Coronavirus HKU1 (PCR) Coronavirus 229E (PCR) SARS-CoV-2 (PCR) Coronavirus NL63 (PCR) Human Metapneumovir PCR Influenza Type A (PCR) Influenza Type B (PCR) M. pneumoniae (PCR) Parainfluenza 1 (PCR) Parainfluenza 2 (PCR) Parainfluenza 3 (PCR) Parainfluenza 4 (PCR) RSV (PCR) Entero/Rhino (PCR) P. aeruginosa (PCR) blaIMP Car res Gene PCR KPC-Carbap Res Gene PCR blaNDM Car Res Gene PCR blaVIM Car Res Gene PCR CTX-M Gene Resistance (PCR) Bld Cult ID Panel PCR Diagnostic Findings KUB X-Ray 01/16/24 05:40 KUB HISTORY: constipation COMPARISON: Abdomen and pelvis CT 11/24/2023. FINDINGS: The bowel gas pattern is unremarkable. There are no dilated loops of small bowel to suggest an obstruction. No renal calculi. No ureteral calculi. No pneumoperitoneum or pneumatosis. An IVC filter is noted. The proximal portion of the right ureteral stent is folded on itself. Prior cholecystectomy. IMPRESSION: 1. Nonobstructed bowel gas pattern. 2. The proximal portion of the right ureteral stent is folded on itself. Urology consultation recommended for repositioning. ACT 112: Negative or not required by law. Electronically signed by: Ernesto France M.D. 01/16/2024 7:51 AM Chest X-Ray 01/16/24 06:31 XR chest 1V portable HISTORY: 68 years-old Female fever COMPARISON: 11/26/2023, 10/24/2023 TECHNIQUE: Semierect AP view of the chest FINDINGS: Cardiac silhouette is enlarged. Chronic reticular interstitial opacities redemonstrated. There is no pneumothorax, pleural effusion or new airspace consolidation. Right carotid stent with adjacent surgical clips redemonstrated. Bones appear grossly intact. IMPRESSION: 1. Cardiomegaly without acute process of the chest. 2. Chronic interstitial coarsening suggestive of fibrosis. ACT 112: Negative or not required by law. The above report was generated using voice recognition software. It may contain grammatical, syntax or spelling errors. Electronically signed by: Enrico Gilliland M.D. 01/16/2024 6:58 AM Abdomen/Pelvis CT 01/16/24 08:[address] WITHOUT CONTRAST CT DOSE: 1493.32 mGy.cm HISTORY: Abnormal KUB. Evaluate stent placement, UTI, ELSIE TECHNIQUE: Multiaxial CT images of the abdomen and pelvis were performed without contrast. A dose lowering technique was utilized adhering to the principles of ALARA. COMPARISON STUDY: Abdomen and pelvis CT 11/24/2023. FINDINGS: Interstitial thickening at the lung bases. This remains unchanged and is likely chronic. Stable 2 mm nodule within the left lower lobe on image 22. No pneumoperitoneum. No pneumatosis. No suspicious lytic are blastic osseous lesions. There are few diverticula at the duodenum. There are scattered jejunal diverticula again noted. Small midline epigastric hernia containing a knuckle of the distal stomach, unchanged. Midline abdominal wall laxity with a small periumbilical hernia containing fat and a short segment of the transverse colon. This is also unchanged. There are few additional lower midline fat-containing ventral hernias. Prior cholecystectomy. The unenhanced liver, spleen, adrenal glands, and pancreas unremarkable. Normal left kidney. Moderate to severe right hydronephrosis to the level of the ureteropelvic junction. This is similar to the prior study. There is persistent right perinephric fat stranding. A right ureteral stent is noted. The proximal portion of the stent is located within the dilated right renal pelvis. Therefore, this is likely in good position. The distal stent terminates in the bladder. No renal or ureteral calculi identified. No bladder calculi. No bladder wall thickening. The uterus and bilateral adnexa are unremarkable. No pelvic free fluid. Suboptimal evaluation for bowel pathology due to the lack of intravenous and oral contrast. However, there is no definite bowel wall thickening or obstruction. Normal appendix. Moderate calcified plaque within the normal caliber abdominal aorta. No retroperitoneal lymphadenopathy. IVC filter appears in good position. IMPRESSION: 1. Persistent right perinephric fat stranding. This may represent a right-sided pyelonephritis. Recommend correlation with urinalysis. 2. Moderate to severe right-sided hydronephrosis, unchanged. However, the right ureteral stent appears in good position. 3. No renal or ureteral calculi. 4. No definite bowel wall thickening or obstruction. 5. Multiple ventral hernias as described above. These are not significantly changed. ACT 112: Negative or not required by law. Electronically signed by: Ernesto France M.D. 01/16/2024 10:04 AM Chest X-Ray 01/17/24 02:21 XR chest 1V portable HISTORY: tachypnea COMPARISON: Chest 01/16/2024. FINDINGS: No pneumothorax. No pleural effusions. The cardiac silhouette remains mildly enlarged. Diffuse interstitial thickening persists. No new focal lung consolidations. No acute fractures. IMPRESSION: No change in the cardiomegaly and diffuse interstitial thickening. This may be chronic. ACT 112: Negative or not required by law. Electronically signed by: Ernesto France M.D. 01/17/2024 7:01 AM Medications Administered Home Medications Medication Instructions Recorded Confirmed Last Taken aspirin 81 mg tablet,delayed 81 mg PO DAILY 09/20/23 01/16/24 11/19/23 release atorvastatin 20 mg tablet 20 mg PO DAILY 09/20/23 01/16/24 11/19/23 baclofen 10 mg tablet 10 mg PO BID PRN Muscle Spasm 09/20/23 01/16/24 Unknown clonazepam 0.5 mg tablet 0.5 mg PO TID 09/20/23 01/16/24 11/19/23 duloxetine 60 mg capsule,delayed See Rx Instructions .Route .COMPLEX 09/20/23 01/16/24 11/19/23 release furosemide 40 mg tablet 60 mg PO BID 09/20/23 01/16/24 11/19/23 gabapentin 300 mg capsule 600 mg PO TID 09/20/23 01/16/24 11/19/23 insulin aspart U-100 100 unit/mL 8 unit subcut UD 09/20/23 01/16/24 11/19/23 (3 mL) subcutaneous pen (Novolog FlexPen U-100 Insulin aspart) insulin degludec 100 unit/mL (3 50 unit subcut HS 09/20/23 01/16/24 11/19/23 mL) subcutaneous pen (Tresiba FlexTouch U-100 insulin) magnesium oxide 400 mg (241.3 mg 400 mg PO BID 09/20/23 01/16/24 11/19/23 magnesium) tablet omeprazole 20 mg capsule,delayed 20 mg PO DAILY 09/20/23 01/16/24 11/19/23 release oxycodone 5 mg tablet 5 mg PO Q6H PRN Pain 09/20/23 01/16/24 Unknown potassium chloride 20 mEq 20 meq PO BID 09/20/23 01/16/24 11/19/23 tablet,extended release(part/cryst) ropinirole 2 mg tablet 2 mg PO HS 09/20/23 01/16/24 11/19/23 sennosides 8.6 mg-docusate sodium 1 tab PO BID 09/20/23 01/16/24 11/19/23 50 mg tablet (Senna-Time S) tirzepatide 5 mg/0.5 mL 5 mg subcut WK 09/20/23 01/16/24 11/16/23 subcutaneous pen injector (Kevan) tramadol 50 mg tablet 50 mg PO TID PRN Pain 09/20/23 01/16/24 Unknown apixaban 2.5 mg tablet (Eliquis) 2.5 mg PO BID 10/24/23 01/16/24 11/19/23 dicyclomine 20 mg tablet 20 mg PO QID PRN abdominal cramping 10/24/23 01/16/24 Unknown duloxetine 30 mg capsule,delayed See Rx Instructions .Route .COMPLEX 10/24/23 01/16/24 11/19/23 release triamcinolone acetonide 0.5 % 1 applic topical BID PRN chest rash 10/24/23 01/16/24 Unknown topical cream levothyroxine 200 mcg tablet 200 mcg PO DAILYBB #30 tabs 12/07/23 01/16/24 11/19/23 trazodone 100 mg tablet 50 mg (1/2 x 100 mg) PO HS #30 tabs 12/07/23 01/16/24 11/19/23 cholecalciferol (vitamin D3) 25 25 mcg PO DAILY 01/16/24 01/16/24 Unknown mcg (1,000 unit) tablet clopidogrel 75 mg tablet 75 mg PO DAILY 01/16/24 01/16/24 Unknown Active Medications Generic Name Dose Route Start Last Admin Trade Name Freq PRN Reason Stop Dose Admin Acetaminophen 650 mg 01/16/24 07:41 01/17/24 09:27 Acetaminophen 325 Mg Tab PO 02/15/24 07:40 650 mg Q4H PRN Administration Pain or Fever Apixaban 2.5 mg 01/16/24 21:00 01/17/24 09:27 Apixaban 2.5 Mg Tab PO 02/15/24 20:59 2.5 mg BID ROBERT Administration Aspirin 81 mg 01/16/24 11:39 01/17/24 09:28 Aspirin 81 Mg Ectab PO 02/15/24 11:38 81 mg DAILY ROBERT Administration Clonazepam 0.5 mg 01/16/24 14:00 01/17/24 09:28 Clonazepam 0.5 Mg Tab PO 02/15/24 13:59 0.5 mg TID ROBERT Administration Clopidogrel Bisulfate 75 mg 01/16/24 11:39 01/17/24 09:28 Clopidogrel Bisulfate 75 Mg Tab PO 02/15/24 11:38 75 mg DAILY ROBERT Administration Duloxetine HCl 60 mg 01/16/24 11:39 01/17/24 09:29 Duloxetine Hcl 60 Mg Cap PO 02/15/24 11:38 60 mg DAILY ROBERT Administration Duloxetine HCl 30 mg 01/16/24 11:39 01/17/24 09:29 Duloxetine Hcl 30 Mg Cap PO 02/15/24 11:38 30 mg DAILY ROBERT Administration Gabapentin 300 mg 01/16/24 14:00 01/17/24 09:29 Gabapentin 300 Mg Cap PO 02/15/24 13:59 300 mg TID ROBERT Administration Daptomycin 500 mg/ Syringe 10 mls @ 5 mls/min 01/16/24 12:00 01/16/24 12:22 IV 01/26/24 11:59 5 mls/min Q24H ROBERT Administration Protocol Cefepime HCl 2,000 mg/ Syringe 20 mls @ 5 mls/min 01/17/24 03:00 01/17/24 03:06 IV 01/27/24 02:59 5 mls/min Q12H ROBERT Administration Protocol Sodium Chloride 1,000 mls @ 100 mls/hr 01/17/24 03:45 01/17/24 03:41 Nss IV 02/16/24 03:44 100 mls/hr .Q10H ROBERT Administration Insulin Aspart 0 units 01/17/24 07:30 01/17/24 12:23 Insulin Aspart Per Unit Charge SC 02/16/24 07:29 Not Given Q6 ROBERT Insulin Glargine 0 units 01/16/24 21:00 01/16/24 21:41 Lantus Per Unit Charge SQ 02/15/24 20:59 10 units HS ROEBRT Administration Protocol Levothyroxine Sodium 200 mcg 01/17/24 06:30 01/17/24 05:58 Levothyroxine Sodium 200 Mcg Tablet PO 02/16/24 06:29 200 mcg DAILYBB ROBERT Administration Magnesium Oxide 400 mg 01/16/24 21:00 01/17/24 09:30 Magnesium Oxide 400 Mg Tab PO 02/15/24 20:59 400 mg BID ROBERT Administration Oxycodone HCl 5 mg 01/16/24 11:39 01/17/24 05:58 Oxycodone Hcl Ir 5 Mg Tab (Immediate Release) PO 01/30/24 11:38 5 mg Q6H PRN Administration Pain Pantoprazole Sodium 40 mg 01/17/24 09:00 01/17/24 09:30 Pantoprazole 40 Mg Tab PO 02/16/24 08:59 40 mg DAILY ROBERT Administration Protocol Potassium Chloride 20 meq 01/16/24 21:00 01/17/24 09:30 Potassium Chloride Crtab 20 Meq Tabcr PO 02/15/24 20:59 20 meq BID ROBERT Administration Ropinirole HCl 2 mg 01/16/24 21:00 01/16/24 21:40 Ropinirole Hcl 2 Mg Tablet PO 02/15/24 20:59 2 mg HS ROBERT Administration Senna/Docusate Sodium 1 tab 01/16/24 21:00 01/17/24 09:27 Docusate Sodium/Senna 50/8.6mg Tab PO 02/15/24 20:59 Not Given BID ROBERT Trazodone HCl 50 mg 01/16/24 21:00 01/16/24 21:40 Trazodone Hcl 50 Mg Tab PO 02/15/24 20:59 50 mg HS ROBERT Administration
[2024-01-17] MEDS ORDERED: Nursing to Pharmacy Communication SCH (22:00)
[2024-01-18 06:56] LABS: Hematocrit (blood only) 31.6 % (37.0-47.0); Hemoglobin 9.7 g/dl (12.0-16.0); Mean Corpuscular Hemoglobin 27.2 pg (25.0-34.0); Mean Corpuscular Hgb Conc 30.7 g/dL (32.0-36.0); Mean Corpuscular Volume 88.8 fL (80.0-100.0); Mean Platelet Volume 10.2 fL (9.4-12.4); Platelet Count 256 K/uL (130-400); RDW Coefficient of Variation 16.6 % (11.5-14.5); RDW Standard Deviation 54.2 fL (36.4-46.3); Red Blood Count 3.56 M/uL (4.20-5.40); White Blood Count 10.58 K/ul (4.8-10.8)
[2024-01-18 07:26] LABS: BUN Creatinine Ratio 17.4 (10-20); Calcium 8.7 mg/dl (8.6-10.3); Creatinine Clr Calc Pharmacy 43.2 ml/min; Est GFR (African American) 34.8 ml/min; Magnesium 2.1 mg/dl (1.7-2.4); Phosphorus 3.2 mg/dl (2.5-4.9); Potassium 4.6 mmol/L (3.5-5.1)
[2024-01-18] MEDS: ATORVASTATIN 20 MG TAB PO SCH (08:28)
--- NOTE | 2024-01-18 10:17 | Urology Progress Note ---
Date of Service January 18, 2024 Assessment & Plan (1) Hydronephrosis: (2) Ureteral stent retained: (3) Complicated urinary tract infection: Plan: 68 yo/F admitted for suspected sepsis secondary to complicated UTI in setting of right ureteral stent placement. Patient afebrile overnight Labs today-creatinine (1.72) and WBC (10.58) trending down Urine culture 01/16/2024 with more than 3 types of organisms present, all moderate counts mixed probable skin jaylin Repeat urine culture pending Blood cultures showing probable Pseudomonas Currently on Cefepime Continue broad-spectrum antibiotics and narrow per sensitivity data when available Right ureteral stent is in good position on CT imaging No acute intervention today Recommend continue antibiotics and supportive care for right pyelonephritis Monitor voiding and bladder scan prn Can consider right ureteral stent exchange if worsening clinical status or ongoing fevers will follow Admission and Anticipated Discharge Date Admission Date: January 16, 2024 Subjective Patient seen at bedside No acute issues overnight Denies fevers Continues to have some right sided abdominal pain Reports fatigue and low appetite, but otherwise feeling a little better Review of Systems Constitutional: as per Subjective / HPI Gastrointestinal: as per Subjective / HPI Genitourinary: as per Subjective / HPI Physical Exam Constitutional: + obese; no acute distress Respiratory: no respiratory distress and no labored breathing Supplemental oxygen in place Gastrointestinal (Abdomen): Inspection/Auscultation: abdomen normal to inspection Percussion/Palpation: abdomen soft; abdomen nontender Musculoskeletal: Head/Neck/Chest: normocephalic Neurologic: moves all extremities and awake Psychiatric: Orientation: alert and oriented x 3 Results & Data Vital Signs (Past 12 Hours) Vital Signs Temp Pulse Pulse Resp BP Pulse Ox O2 Del Method 01/18/24 08:00 88 01/18/24 07:47 Nasal Cannula 01/18/24 07:39 36.8 C 87 18 117/56 L 100 Nasal Cannula 01/18/24 03:00 36.9 C 103 H 20 149/67 H 88 L Nasal Cannula 01/17/24 22:51 37.5 C 91 H 20 109/54 L 93 Nasal Cannula 01/17/24 22:40 90 O2 Flow Rate 01/18/24 08:00 01/18/24 07:47 4 01/18/24 07:39 5 01/18/24 03:00 5 01/17/24 22:51 4 01/17/24 22:40 PG Care Time/CCT Total # of Minutes Spent Total Time Spent with Patient: Total time spent is greater than 50% in coordination of care (as documented) at patient's floor/unit and/or counseling patient: Coding Level of Care Code 04395 SUB INP/OBS CARE 2/35MIN Diagnoses Hydronephrosis N13.30 Hydronephrosis type: unspecified Ureteral stent retained Z96.0 Complicated urinary tract infection N39.0 (1) Hydronephrosis Hydronephrosis type: unspecified Qualified Code(s): N13.30 - Unspecified hydronephrosis
[2024-01-18] MEDS: ALUMINUM/MAGNESIUM SUSP 30 ML UDC PO PRN (11:16)
--- NOTE | 2024-01-18 12:01 | Pharmacy Report ---
Pharmacy Glycemic Short Note 2 - Date of Service January 18, 2024 - Glycemic Short BSG Results (Last 24 hours): 01/17/24 01/17/24 01/18/24 16:27 20:17 06:37 Glucose 133 H POC Glucose 122 H 113 H 01/18/24 01/18/24 07:21 11:19 Glucose POC Glucose 117 H 135 H OUTPATIENT ANTIDIABETIC REGIMEN: * Tresiba 50 units HS, Novolog 8-8-10 TIesteban DURON ASSESSMENT: 01/17 * Patient received only 10 units of insulin yesterday, of which 5 were basal for continued NPO status * Diet now ordered this AM, fasting BSG 133 mg/dL - reasonable to continue with scale for basal at HS as unclear what PO intake will be 01/15 * 68 year old admitted with fever/body aches - concerns for complicated UTI in setting of right ureteral stent. Patient currently NPO and urology consulted to determine if intervention is necessary. Patient known to pharmacy glycemic service from other admissions. Most recently admitted, 11/20-12/06 - insulin needs typically much less than outpatient dosing. Fasting BSG 117 mg/dL - per med list patient takes basal at HS. Will add scale for basal at HS. PLAN FOR INPATIENT GLYCEMIC CONTROL: * Hold outpatient oral diabetes medications * Basal insulin * Lantus 8-12 units SQ HS * Bolus insulin * NovoLog per scale ACHS or Q6hrs while NPO * Goal Range: Low 110 mg/dL - High 140 mg/dL * Correction Factor: 20 mg/dL/unit * Nutritional / Prandial insulin per carb ratio of 1 unit per 7 grams CHO consumed
--- NOTE | 2024-01-18 17:03 | Hospitalist Progress Note ---
Date of Service January 18, 2024 Assessment & Plan (1) Sepsis: (2) Complicated urinary tract infection: (3) Acute renal failure superimposed on stage 3 chronic kidney disease: (4) Ureteral stent retained: (5) Abdominal pain: (6) Diabetes mellitus, type II: (7) ELISSA on CPAP: (8) HTN (hypertension): (9) History of pulmonary embolism: (10) Chronic diastolic heart failure: (11) Chronic hypoxemic respiratory failure: Plan 68-year-old lady with PMH of IDDM 2, chronic hypoxic respiratory failure [4 L oxygen at home, multifactorial ISO CHF], diastolic CHF, cor pulmonale, interstitial lung disease, CKD stage III [baseline creatinine around 1.6], HTN, HLD, recurrent DVT status post IVC filter, transcarotid artery revascularization 09/09/2023, ELISSA on CPAP, heparin-induced thrombocytopenia, GERD, RLS, chronic constipation, chronic ambulatory dysfunction ISO knee pain presented to the ED 01/15 with complaint of fever for 2 days [employer]UST [employer] associated with some 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 Of note patient has chronic constipation and takes milk of magnesia at home. Patient denies cough or sore throat or chest pain or headache or dizziness. She is being managed for the following: Right pyelonephritis iso indwelling ureteral stent Complicated UTI Sepsis: Secondary to above. Admitting heart rate/respiratory rate/WBC elevated. Procalcitonin and lactate WNL. Bacteremia: likely 2/2 right pyelonephritis Patient coming in with fever/not feeling well/right lower abdominal pain for 2 days D[employer]. Admitting WBC, heart rate, pulse rate elevated. Procalcitonin and lactate WNL. Admitting imagings: XR KUB: Proximal portion of the right ureteral stent is folded on itself CXR: No acute finding. Chronic interstitial coarsening suggestive of fibrosis CTAP: Persistent right perinephric fat stranding, right-sided pyelonephritis, severe right-sided hydronephrosis. No renal or ureteral calculi. Multiple ventral hernias. No bowel obstruction. Urine culture appears contaminated. Resent urine culture 01/16 Admitting blood culture with gram-negative bacteremia, follow final culture and sensitivity. ? Pseudomonas Patient received Rocephin and daptomycin 01/15, changed to cefepime 01/16. ID consult 4/23, appreciate recs. Daptomycin discontinued per ID recs. Fever getting better, patient reports feeling overall better, hemodynamics more stable. Still with lower abdominal pain. Urology evaluating, appreciate recommendation. Conservative management for now. Patient reports improving appetite, will decrease IV fluid rate. Acute kidney injury over CKD stage III, likely ATN: Baseline creatinine around 1.3-1.6, admitting creatinine of 1.95. Patient on gentle IV fluid. Labs in AM. Avoid nephrotoxic. Hold diuretics, BOOGIE/ARB's. Cr slightly improving. if Cr worsening, consider nephro and re-image abd/pelvis Chronic hypoxic respiratory failure: On 4 L oxygen ELISSA on CPAP: Continue home CPAP Chronic diastolic CHF: Currently euvolemic, getting IV fluid for ELSIE over CKD and sepsis. Lactate WNL. Resume home diuretics when able. TCAR by Dr. Alas in 08/2023: Continue ASA, Plavix. Continue with statin. DVT status post IVC filter and history of PE: On home Eliquis 2.5 twice daily, continue. DVT prophylaxis: Patient on Eliquis. Admission and Anticipated Discharge Date Admission Date: January 16, 2024 Subjective Patient was seen and examined at bedside. Patient was lying in bed, on 4 L oxygen via nasal cannula, not in acute distress. Patient reports feeling better, slight improvement in her appetite/abdominal pain. Denies any fever/chills/headache. Patient made aware of bacteremia and appropriate antibiotic treatment. Patient denies nausea and vomiting. Reports moving bowels. Physical Exam Physical Exam: GENERAL: Alert and oriented x3. NAD, on 4L NC O2. Appear ill/sick/weak. Obese class III. HEENT: No pallor, no icterus. Pupils equal, round and reactive to light. Oral mucosa moist. NECK: No JVD, no neck masses. HEART: S1 and S2 heard. Regular rate and rhythm. No murmur, no gallop. RESPIRATORY SYSTEM: Normal AP diameter. No accessory muscle use. No wheezing, no crackles. ABDOMEN: Soft, bowel sounds present. Ventral hernia noted/non tender. low abd tender improving CENTRAL NERVOUS SYSTEM: No facial droop. Speech is clear. Obeys simple commands. Moves extremities. EXTREMITIES: No edema, no erythema seen. Results & Data Results & Data Vital Signs (Past 12 Hours) Vital Signs Temp Pulse Pulse Resp BP Pulse Ox O2 Del Method 01/18/24 15:52 36.6 C 79 20 101/63 99 Nasal Cannula 01/18/24 11:29 36.9 C 86 20 104/64 97 Nasal Cannula 01/18/24 08:00 88 01/18/24 07:47 Nasal Cannula 01/18/24 07:39 36.8 C 87 18 117/56 L 100 Nasal Cannula O2 Flow Rate 01/18/24 15:52 5 01/18/24 11:29 5 01/18/24 08:00 01/18/24 07:47 4 01/18/24 07:39 5 (5) Abdominal pain Abdominal location: right lower quadrant Qualified Code(s): R10.31 - Right lower quadrant pain (6) Diabetes mellitus, type II Diabetes mellitus complication status: with hypoglycemia Diabetes mellitus residential insulin use: with intermodal customer service use (8) HTN (hypertension) Hypertension type: primary hypertension Qualified Code(s): I10 - Essential (primary) hypertension
--- NOTE | 2024-01-19 09:33 | Urology Progress Note ---
<Statement entered by Al Arriaga MD - 01/19/24 09:54> I have seen and discussed Ms. Camp with TATIANA Guillen and agree with the above documentation. Stent appears to be in good position and she is clinically improving with antibiotics. We will hold off intervention for now and plan to coordinate outpatient follow-up for stent exchange anticipate about 3 months after it was placed. Regarding recurrent UTIs, she would be a good candidate for trial of cranberry or d-mannose supplements. I think she would also be appropriate to start topical estrogen therapy. Urology will arrange outpatient follow-up to ensure that these interventions are started. Urology will sign off for now, please call with any questions or concerns. -Al Arriaga MD. Date of Service January 19, 2024 Assessment & Plan (1) Ureteral stent retained: (2) Complicated urinary tract infection: (3) Acute UTI (urinary tract infection): Plan 68 yo/F admitted for suspected sepsis secondary to complicated UTI in setting of right ureteral stent placement. Vital signs stable, patient afebrile overnight Repeat urine and blood culture pending Blood cultures showed Pseudomonas Currently on Cefepime Continue broad-spectrum antibiotics and narrow per sensitivity data when available Recommend continue antibiotics and supportive care for right pyelonephritis Monitor voiding and bladder scan prn Will arrange right ureteral stent exchange outpatient along with outpatient urology follow-up Recommended beginning an [id number] cranberry supplement or d-mannose along with estrogen cream for prevention of future UTIs Urology will sign off, please contact us for any additional questions or concern Admission and Anticipated Discharge Date Admission Date: January 16, 2024 Subjective Patient sitting comfortably in her chair Admitting to right abdominal discomfort patient s/p right stent placement on 11/25/2023 Denying fevers, chills, N/V overnight Patient interested in options to prevent urinary tract infections/help with maximum kidney drainage Vital signs are within normal limits Labs were not completed this morning Repeat urine culture is still pending, repeat blood culture still pending, blood culture from 01/16/2024 showed Pseudomonas Review of Systems Constitutional: as per Subjective / HPI Genitourinary: as per Subjective / HPI Physical Exam Constitutional: well developed and well nourished; no acute distress Eyes: + anicteric sclerae; pupils not irregula r Respiratory: normal respiratory effort; no respiratory distress, does not use accessory muscles and normal respiratory pattern Cardiovascular: well perfused Musculoskeletal: Extremities: extremities normal to inspection Skin: no rashes, warm and dry normal turgor Neurologic: moves all extremities and awake Speech / Cognition: normal speech Psychiatric: Orientation: alert and oriented x 3 Eye Contact: good eye contact Results & Data Vital Signs (Past 12 Hours) Vital Signs Temp Pulse Pulse Resp BP Pulse Ox O2 Del Method 01/19/24 07:48 Nasal Cannula 01/19/24 06:42 36.8 C 78 18 134/64 Nasal Cannula 01/19/24 03:00 36.5 C 74 20 105/60 97 Nasal Cannula 01/18/24 22:49 36.6 C 75 18 100/61 100 Nasal Cannula 01/18/24 22:00 71 O2 Flow Rate 01/19/24 07:48 4 01/19/24 06:42 4.0 01/19/24 03:00 4 01/18/24 22:49 4 01/18/24 22:00 PG Care Time/CCT Total # of Minutes Spent Total Time Spent with Patient: Total time spent is greater than 50% in coordination of care (as documented) at patient's floor/unit and/or counseling patient: Coding Level of Care Code 26046 SUB INP/OBS CARE 2/35MIN Diagnoses Ureteral stent retained Z96.0 Complicated urinary tract infection N39.0 Acute UTI (urinary tract infection) N39.0
[2024-01-19 10:02] LABS: Hematocrit (blood only) 34.4 % (37.0-47.0); Hemoglobin 10.2 g/dl (12.0-16.0); Mean Corpuscular Hemoglobin 26.8 pg (25.0-34.0); Mean Corpuscular Hgb Conc 29.7 g/dL (32.0-36.0); Mean Corpuscular Volume 90.3 fL (80.0-100.0); Mean Platelet Volume 10.3 fL (9.4-12.4); Platelet Count 301 K/uL (130-400); RDW Coefficient of Variation 16.7 % (11.5-14.5); RDW Standard Deviation 55.1 fL (36.4-46.3); Red Blood Count 3.81 M/uL (4.20-5.40)
[2024-01-19 10:17] LABS: BUN Creatinine Ratio 18.8 (10-20); Creatinine Clr Calc Pharmacy 50.1 ml/min; Est GFR (African American) 43.1 ml/min; Est GFR (Non-African American) 37.2 ml/min; Phosphorus 2.5 mg/dl (2.5-4.9); Potassium 4.4 mmol/L (3.5-5.1)
--- NOTE | 2024-01-19 15:48 | Hospitalist Progress Note ---
Date of Service January 19, 2024 Assessment & Plan (1) Sepsis: (2) Complicated urinary tract infection: (3) Acute renal failure superimposed on stage 3 chronic kidney disease: (4) Ureteral stent retained: (5) Abdominal pain: (6) Diabetes mellitus, type II: (7) ELISSA on CPAP: (8) HTN (hypertension): (9) History of pulmonary embolism: (10) Chronic diastolic heart failure: (11) Chronic hypoxemic respiratory failure: Plan 68-year-old lady with PMH of IDDM 2, chronic hypoxic respiratory failure [4 L oxygen at home, multifactorial ISO CHF], diastolic CHF, cor pulmonale, interstitial lung disease, CKD stage III [baseline creatinine around 1.6], HTN, HLD, recurrent DVT status post IVC filter, transcarotid artery revascularization 09/09/2023, ELISSA on CPAP, heparin-induced thrombocytopenia, GERD, RLS, chronic constipation, chronic ambulatory dysfunction ISO knee pain presented to the ED 01/15 with complaint of fever for 2 days [employer]SP[employer] associated with some 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 Of note patient has chronic constipation and takes milk of magnesia at home. Patient denies cough or sore throat or chest pain or headache or dizziness. She is being managed for the following: Right pyelonephritis iso indwelling ureteral stent Complicated UTI Sepsis: Secondary to above. Admitting heart rate/respiratory rate/WBC elevated. Procalcitonin and lactate WNL. Bacteremia: likely 2/2 right pyelonephritis Patient coming in with fever/not feeling well/right lower abdominal pain for 2 days [employer]SP[employer]. Admitting WBC, heart rate, pulse rate elevated. Procalcitonin and lactate WNL. Admitting imagings: XR KUB: Proximal portion of the right ureteral stent is folded on itself CXR: No acute finding. Chronic interstitial coarsening suggestive of fibrosis CTAP: Persistent right perinephric fat stranding, right-sided pyelonephritis, severe right-sided hydronephrosis. No renal or ureteral calculi. Multiple ventral hernias. No bowel obstruction. Urine culture appears contaminated. Resent urine culture 01/16, now growing GPC - follow Admitting blood culture Pseudomonas aeruginosa bacteremia. Repeat blood culture no growth 24 hours. Patient on cefepime from 01/16, discussed with ID 01/18, transition to Cipro on discharge to complete total of 7 days of therapy. Preliminary urine culture results were not available in the morning at the time of ID discussion, will need further discussion with ID once culture and sensitivities finalized on the urine as well. Fever getting better, patient reports feeling overall better, hemodynamics more stable. Lower abdominal pain improving, appetite is yet improved. Urology evaluated, OTC cranberry supplement or d-mannose along with estrogen cream for prevention of future UTI. Appetite though not completely improved, patient eating better, will DC IV fluid given history of heart failure. Acute kidney injury over CKD stage III, likely ATN: Baseline creatinine around 1.3-1.6, admitting creatinine of 1.95. Status post gentle IV fluid. Labs in AM. Avoid nephrotoxic. Hold diuretics, BOOGIE/ARB's. Creatinine better, if stabl e or continues to be better, resume home meds gradually. if Cr worsening, consider nephro and re-image abd/pelvis Chronic hypoxic respiratory failure: On 4 L oxygen ELISSA on CPAP: Continue home CPAP Chronic diastolic CHF: Currently euvolemic, getting IV fluid for ELSIE over CKD and sepsis. Lactate WNL. Resume home diuretics when able. TCAR by Dr. Alas in 08/2023: Continue ASA, Plavix. Continue with statin. DVT status post IVC filter and history of PE: On home Eliquis 2.5 twice daily, continue. DVT prophylaxis: Patient on Eliquis. Disposition PT/OT, CM to assist with DC planning. Admission and Anticipated Discharge Date Admission Date: January 16, 2024 Subjective Patient was seen and examined at bedside. Patient was lying in bed, on 4 L oxygen via nasal cannula, not in acute distress. Patient reports feeling better, more improvement in her abdominal pain. Ap petite yet to improve per her. Denies any fever/chills/headache. Patient denies nausea and vomiting. Reports moving bowels. Physical Exam Physical Exam: GENERAL: Alert and oriented x3. NAD, on 4L NC O2. Appear ill/sick/weak. Obese class III. HEENT: No pallor, no icterus. Pupils equal, round and reactive to light. Oral mucosa moist. NECK: No JVD, no neck masses. HEART: S1 and S2 heard. Regular rate and rhythm. No murmur, no gallop. RESPIRATORY SYSTEM: Normal AP diameter. No accessory muscle use. No wheezing, no crackles. ABDOMEN: Soft, bowel sounds present. Ventral hernia noted/non tender. low abd tender improving CENTRAL NERVOUS SYSTEM: No facial droop. Speech is clear. Obeys simple commands. Moves extremities. EXTREMITIES: trace ble edema, no erythema seen. Results & Data Results & Data Vital Signs (Past 12 Hours) Vital Signs Temp Pulse Pulse Resp BP BP Pulse Ox 01/19/24 15:31 36.5 C 73 20 100/55 L 99 01/19/24 11:56 36.5 C 75 20 128/68 99 01/19/24 07:48 01/19/24 06:42 36.8 C 78 18 134/64 01/19/24 06:00 76 O2 Del Method O2 Flow Rate 01/19/24 15:31 Nasal Cannula 2 01/19/24 11:56 Nasal Cannula 2 01/19/24 07:48 Nasal Cannula 4 01/19/24 06:42 Nasal Cannula 4.0 01/19/24 06:00 (5) Abdominal pain Abdominal location: right lower quadrant Qualified Code(s): R10.31 - Right lower quadrant pain (6) Diabetes mellitus, type II Diabetes mellitus complication status: with hypoglycemia Diabetes mellitus lobsterman insulin use: with lobsterman use (8) HTN (hypertension) Hypertension type: primary hypertension Qualified Code(s): I10 - Essential (primary) hypertension
[2024-01-19] MEDS: DICYCLOMINE HCL 20 MG TAB PO PRN (21:12)
[2024-01-20] MEDS: ONDANSETRON INJ 2 MG/ML 2 ML VIAL IV PRN (00:48)
[2024-01-20 06:53] LABS: Hematocrit (blood only) 32.8 % (37.0-47.0); Hemoglobin 9.7 g/dl (12.0-16.0); Mean Corpuscular Hemoglobin 26.5 pg (25.0-34.0); Mean Corpuscular Hgb Conc 29.6 g/dL (32.0-36.0); Mean Corpuscular Volume 89.6 fL (80.0-100.0); Mean Platelet Volume 10.2 fL (9.4-12.4); Platelet Count 315 K/uL (130-400); RDW Coefficient of Variation 16.3 % (11.5-14.5); RDW Standard Deviation 53.9 fL (36.4-46.3); Red Blood Count 3.66 M/uL (4.20-5.40); White Blood Count 7.04 K/ul (4.8-10.8)
[2024-01-20 07:02] LABS: Calcium 8.7 mg/dl (8.6-10.3); Magnesium 1.8 mg/dl (1.7-2.4); Potassium 4.2 mmol/L (3.5-5.1)
[2024-01-20 07:07] LABS: BUN Creatinine Ratio 16.5 (10-20); Creatinine Clr Calc Pharmacy 54.7 ml/min; Est GFR (African American) 47.5 ml/min; Phosphorus 2.6 mg/dl (2.5-4.9)
[2024-01-20] MEDS ORDERED: Nursing to Pharmacy Communication SCH (09:30)
[2024-01-20] MEDS: PREMARIN VAG CRM 14 APPLN/30 GM TUBE PV SCH ×2 (11:40→21:02)
--- NOTE | 2024-01-20 16:22 | Hospitalist Progress Note ---
Date of Service January 20, 2024 Assessment & Plan (1) Sepsis: (2) Complicated urinary tract infection: (3) Acute renal failure superimposed on stage 3 chronic kidney disease: (4) Ureteral stent retained: (5) Abdominal pain: (6) Diabetes mellitus, type II: (7) ELISSA on CPAP: (8) HTN (hypertension): (9) History of pulmonary embolism: (10) Chronic diastolic heart failure: (11) Chronic hypoxemic respiratory failure: Plan 68-year-old lady with PMH of IDDM 2, chronic hypoxic respiratory failure [4 L oxygen at home, multifactorial ISO CHF], diastolic CHF, cor pulmonale, interstitial lung disease, CKD stage III [baseline creatinine around 1.6], HTN, HLD, recurrent DVT status post IVC filter, transcarotid artery revascularization 09/09/2023, ELISSA on CPAP, heparin-induced thrombocytopenia, GERD, RLS, chronic constipation, chronic ambulatory dysfunction ISO knee pain presented to the ED 01/15 with 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 Of note patient has chronic constipation and takes milk of magnesia at home. Patient denies cough or sore throat or chest pain or headache or dizziness. She is being managed for the following: Right pyelonephritis iso indwelling ureteral stent Complicated UTI Sepsis: Secondary to above. Admitting heart rate/respiratory rate/WBC elevated. Procalcitonin and lactate WNL. 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 Admitting WBC, heart rate, pulse rate elevated. Procalcitonin and lactate WNL. Admitting imagings: XR KUB: Proximal portion of the right ureteral stent is folded on itself CXR: No acute finding. Chronic interstitial coarsening suggestive of fibrosis CTAP: Persistent right perinephric fat stranding, right-sided pyelonephritis, severe right-sided hydronephrosis. No renal or ureteral calculi. Multiple ventral hernias. No bowel obstruction. Urine culture appears contaminated. Resent urine culture 01/16, now growing GPC -discussed with microbiologylikely identification and culture tomorrow AM. Admitting blood culture Pseudomonas aeruginosa bacteremia. Repeat blood culture no growth 48 hours. Patient on cefepime from 01/16, previous attending discussed with ID 01/18, transition to Cipro on discharge to complete total of 7 days of therapy. Urology evaluated, OTC cranberry supplement or d-mannose along with estrogen cream for prevention of future UTI. Acute kidney injury over CKD stage III, likely ATN: Baseline creatinine around 1.3-1.6, admitting creatinine of 1.95. Status post gentle IV fluid. Labs in AM. Avoid nephrotoxic. Chronic hypoxic respiratory failure: On 4 L oxygen ELISSA on CPAP: Continue home CPAP Chronic diastolic CHF: Currently euvolemic, getting IV fluid for ELSIE over CKD and sepsis. Lactate WNL. Resume home diuretics when able. TCAR by Dr. Alas in 08/2023: Continue ASA, Plavix. Continue with statin. DVT status post IVC filter and history of PE: On home Eliquis 2.5 twice daily, continue. DVT prophylaxis: Patient on Eliquis. Disposition PT/OT, CM to assist with DC planning. Time spent evaluating patient, direct bedside care, chart review, placing orders, interpretation of diagnostic studies, discussion with consultants, patient, and family members, as well as other required patient management activities is 50 minutes Please note the above document was generated using voice recognition software. It may contain grammatical, syntax or spelling errors. Any formal questions or concerns about the content, text or information contained within the body of this dictation should be directly addressed to the provider for clarification Admission and Anticipated Discharge Date Admission Date: January 16, 2024 Subjective Patient seen and examined at bedside. She is sitting up on the chair at the side of the bed; not in distress. She reports mild pain in her right flank. No significant events overnight Review of Systems Review of Systems: All systems reviewed & are unremarkable except as noted in Subjective Physical Exam Physical Exam: GENERAL: Alert and oriented x3. NAD, on 4L NC O2. Comfortable; not in distress. HEENT: No pallor, no icterus. Pupils equal, round and reactive to light. Oral mucosa moist. NECK: No JVD, no neck masses. HEART: S1 and S2 heard. Regular rate and rhythm. No murmur, no gallop. RESPIRATORY SYSTEM: Normal AP diameter. No accessory muscle use. No wheezing, no crackles. ABDOMEN: Soft, bowel sounds present. Ventral hernia noted/non tender. low abd tender improving CENTRAL NERVOUS SYSTEM: No facial droop. Speech is clear. Obeys simple commands. Moves extremities. EXTREMITIES: trace ble edema, no erythema seen. Results & Data Results & Data Vital Signs (Past 12 Hours) Vital Signs Temp Pulse Resp BP Pulse Ox O2 Del Method O2 Flow Rate 01/20/24 11:30 36.7 C 97 H 20 116/63 96 Nasal Cannula 4 01/20/24 08:04 36.6 C 88 18 130/74 98 Nasal Cannula 4 01/20/24 07:30 Nasal Cannula 4 (5) Abdominal pain Abdominal location: right lower quadrant Qualified Code(s): R10.31 - Right lower quadrant pain (6) Diabetes mellitus, type II Diabetes mellitus complication status: with hypoglycemia Diabetes mellitus long term acute care registered nurse insulin use: with custodial use (8) HTN (hypertension) Hypertension type: primary hypertension Qualified Code(s): I10 - Essential (primary) hypertension
[2024-01-20] MEDS: FUROSEMIDE 40 MG TAB PO SCH (17:59)
[2024-01-20] MEDS: traMADol HCL 50 MG TABLET PO PRN (20:05)
[2024-01-20] MEDS: oxyCODONE HCL IR 5 MG TAB (IMMEDIATE RELEASE) PO PRN (21:51)
[2024-01-21] MEDS: MAGNESIUM HYDROXIDE SUSP 30 ML UDC PO ONE (11:25)
[2024-01-21] MEDS: POLYETHYLENE (MIRALAX) 17 GM PACK PO SCH (11:25)
[2024-01-21] MEDS: DAPTOmycin 800 MG in SYRINGE 0 ML IV SCH (11:25)
--- NOTE | 2024-01-21 12:59 | Hospitalist Progress Note ---
Date of Service January 21, 2024 Assessment & Plan (1) Sepsis: (2) Complicated urinary tract infection: (3) Acute renal failure superimposed on stage 3 chronic kidney disease: (4) Ureteral stent retained: (5) Abdominal pain: (6) Diabetes mellitus, type II: (7) ELISSA on CPAP: (8) HTN (hypertension): (9) History of pulmonary embolism: (10) Chronic diastolic heart failure: (11) Chronic hypoxemic respiratory failure: Plan 68-year-old lady with PMH of IDDM 2, chronic hypoxic respiratory failure [4 L oxygen at home, multifactorial ISO CHF], diastolic CHF, cor pulmonale, interstitial lung disease, CKD stage III [baseline creatinine around 1.6], HTN, HLD, recurrent DVT status post IVC filter, transcarotid artery revascularization 09/09/2023, ELISSA on CPAP, heparin-induced thrombocytopenia, GERD, RLS, chronic constipation, chronic ambulatory dysfunction ISO knee pain presented to the ED 01/15 with 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 Of note patient has chronic constipation and takes milk of magnesia at home. Patient denies cough or sore throat or chest pain or headache or dizziness. She is being managed for the following: Right pyelonephritis iso indwelling ureteral stent Complicated UTI Sepsis: Secondary to above. Admitting heart rate/respiratory rate/WBC elevated. Procalcitonin and lactate WNL. 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 Admitting WBC, heart rate, pulse rate elevated. Procalcitonin and lactate WNL. Admitting imagings: XR KUB: Proximal portion of the right ureteral stent is folded on itself CXR: No acute finding. Chronic interstitial coarsening suggestive of fibrosis CTAP: Persistent right perinephric fat stranding, right-sided pyelonephritis, severe right-sided hydronephrosis. No renal or ureteral calculi. Multiple ventral hernias. No bowel obstruction. Urine culture appears contaminated. Resent urine culture 01/16, - VRE Admitting blood culture Pseudomonas aeruginosa bacteremia. Repeat blood culture no growth 48 hours. Patient on cefepime from 01/16, previous attending discussed with ID 01/18, transition to Cipro on discharge to complete total of 7 days of therapy. Urology evaluated, OTC cranberry supplement or d-mannose along with estrogen cream for prevention of future UTI. Patient is started on daptomycin for VRE. Acute kidney injury over CKD stage III, likely ATN: Baseline creatinine around 1.3-1.6, admitting creatinine of 1.95. Status post gentle IV fluid. Labs in AM. Avoid nephrotoxic. Chronic hypoxic respiratory failure: On 4 L oxygen ELISSA on CPAP: Continue home CPAP Chronic diastolic CHF: Currently euvolemic, getting IV fluid for ELSIE over CKD and sepsis. Lactate WNL. TCAR by Dr. Alas in 08/2023: Continue ASA, Plavix. Continue with statin. DVT status post IVC filter and history of PE: On home Eliquis 2.5 twice daily, continue. DVT prophylaxis: Patient on Eliquis. Disposition PT/OT, CM to assist with DC planning. Please note the above document was generated using voice recognition software. It may contain grammatical, syntax or spelling errors. Any formal questions or concerns about the content, text or information contained within the body of this dictation should be directly addressed to the provider for clarification Admission and Anticipated Discharge Date Admission Date: January 16, 2024 Subjective Patient seen and examined at bedside. She is comfortably sitting up on the bed; not in distress. Review of Systems Review of Systems: All systems reviewed & are unremarkable except as noted in Subjective Physical Exam Physical Exam: GENERAL: Alert and oriented x3. NAD, on 4L NC O2. Comfortable; not in distress. HEENT: No pallor, no icterus. Pupils equal, round and reactive to light. Oral mucosa moist. NECK: No JVD, no neck masses. HEART: S1 and S2 heard. Regular rate and rhythm. No murmur, no gallop. RESPIRATORY SYSTEM: Normal AP diameter. No accessory muscle use. No wheezing, no crackles. ABDOMEN: Soft, bowel sounds present. Ventral hernia noted/non tender. low abd tender improving CENTRAL NERVOUS SYSTEM: No facial droop. Speech is clear. Obeys simple commands. Moves extremities. EXTREMITIES: trace ble edema, no erythema seen. Results & Data Results & Data Vital Signs (Past 12 Hours) Vital Signs Temp Pulse Pulse Resp BP Pulse Ox Pulse Ox 01/21/24 11:30 36.6 C 92 H 18 119/71 98 01/21/24 08:23 36.6 C 87 20 122/68 96 01/21/24 07:00 73 01/21/24 07:00 95 01/21/24 03:15 36.6 C 76 18 131/60 95 O2 Del Method O2 Flow Rate 01/21/24 11:30 Nasal Cannula 3 01/21/24 08:23 Nasal Cannula 3 01/21/24 07:00 01/21/24 07:00 01/21/24 03:15 Nasal Cannula 3 (5) Abdominal pain Abdominal location: right lower quadrant Qualified Code(s): R10.31 - Right lower quadrant pain (6) Diabetes mellitus, type II Diabetes mellitus complication status: with hypoglycemia Diabetes mellitus ad terminal makeup operator insulin use: with ad terminal makeup operator use (8) HTN (hypertension) Hypertension type: primary hypertension Qualified Code(s): I10 - Essential (primary) hypertension
--- NOTE | 2024-01-22 11:00 | Hospitalist Progress Note ---
Date of Service January 22, 2024 Assessment & Plan (1) Sepsis: (2) Complicated urinary tract infection: (3) Acute renal failure superimposed on stage 3 chronic kidney disease: (4) Ureteral stent retained: (5) Abdominal pain: (6) Diabetes mellitus, type II: (7) ELISSA on CPAP: (8) HTN (hypertension): (9) History of pulmonary embolism: (10) Chronic diastolic heart failure: (11) Chronic hypoxemic respiratory failure: Plan 68-year-old lady with PMH of IDDM 2, chronic hypoxic respiratory failure [4 L oxygen at home, multifactorial ISO CHF], diastolic CHF, cor pulmonale, interstitial lung disease, CKD stage III [baseline creatinine around 1.6], HTN, HLD, recurrent DVT status post IVC filter, transcarotid artery revascularization 09/09/2023, ELISSA on CPAP, heparin-induced thrombocytopenia, GERD, RLS, chronic constipation, chronic ambulatory dysfunction ISO knee pain presented to the ED 01/15 with 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 Of note patient has chronic constipation and takes milk of magnesia at home. Patient denies cough or sore throat or chest pain or headache or dizziness. She is being managed for the following: Right pyelonephritis iso indwelling ureteral stent Complicated UTI Sepsis: Secondary to above. Admitting heart rate/respiratory rate/WBC elevated. Procalcitonin and lactate WNL. 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 Admitting WBC, heart rate, pulse rate elevated. Procalcitonin and lactate WNL. Admitting imagings: XR KUB: Proximal portion of the right ureteral stent is folded on itself CXR: No acute finding. Chronic interstitial coarsening suggestive of fibrosis CTAP: Persistent right perinephric fat stranding, right-sided pyelonephritis, severe right-sided hydronephrosis. No renal or ureteral calculi. Multiple ventral hernias. No bowel obstruction. Urine culture appears contaminated. Resent urine culture 01/16, - VRE Admitting blood culture Pseudomonas aeruginosa bacteremia. Repeat blood culture no growth 48 hours. Patient on cefepime from 01/16, previous attending discussed with ID 01/18, transition to Cipro on discharge to complete total of 7 days of therapy. Continue on cefepime while hospitalized. Urology evaluated, OTC cranberry supplement or d-mannose along with estrogen cream for prevention of future UTI. Patient is started on daptomycin for VRE on January 21, 2024. Patient unable to t rikki linezolid due to interaction with her antidepressants. Acute kidney injury over CKD stage III, likely ATN: Baseline creatinine around 1.3-1.6, admitting creatinine of 1.95. Status post gentle IV fluid. Labs in AM. Avoid nephrotoxic. Chronic hypoxic respiratory failure: On 4 L oxygen ELISSA on CPAP: Continue home CPAP Chronic diastolic CHF: Currently euvolemic, received IV fluids for ELSIE on CKD. Monitor for volume overload. TCAR by Dr. Alas in 08/2023: Continue ASA, Plavix. Continue with statin. DVT status post IVC filter and history of PE: On home Eliquis 2.5 twice daily, continue. DVT prophylaxis: Patient on Eliquis. Disposition PT/OT, CM to assist with DC planning. Patient needs IV antibiotics with daptomycin for UTI; continues to hospitalize for it. Please note the above document was generated using voice recognition software. It may contain grammatical, syntax or spelling errors. Any formal questions or concerns about the content, text or information contained within the body of this dictation should be directly addressed to the provider for clarification Admission and Anticipated Discharge Date Admission Date: January 16, 2024 Subjective Patient is seen and examined at bedside. She reports that she is feeling well. She reports mild discomfort on right flank along with mild pain on micturition. Review of Systems Review of Systems: All systems reviewed & are unremarkable except as noted in Subjective Physical Exam Physical Exam: GENERAL: Alert and oriented x3. NAD, on 4L NC O2. Comfortable; not in distress. HEENT: No pallor, no icterus. Pupils equal, round and reactive to light. Oral mucosa moist. NECK: No JVD, no neck masses. HEART: S1 and S2 heard. Regular rate and rhythm. No murmur, no gallop. RESPIRATORY SYSTEM: Normal AP diameter. No accessory muscle use. No wheezing, no crackles. ABDOMEN: Soft, bowel sounds present. Ventral hernia noted/non tender. low abd tender improving CENTRAL NERVOUS SYSTEM: No facial droop. Speech is clear. Obeys simple commands. Moves extremities. EXTREMITIES: trace ble edema, no erythema seen. Results & Data Results & Data Vital Signs (Past 12 Hours) Vital Signs Temp Pulse Pulse Resp BP Pulse Ox O2 Del Method 01/22/24 07:30 36.6 C 73 20 107/57 L 100 Nasal Cannula 01/22/24 05:58 70 01/22/24 03:24 36.6 C 81 20 137/72 98 Nasal Cannula O2 Flow Rate 01/22/24 07:30 2 01/22/24 05:58 01/22/24 03:24 3 (5) Abdominal pain Abdominal location: right lower quadrant Qualified Code(s): R10.31 - Right lower quadrant pain (6) Diabetes mellitus, type II Diabetes mellitus complication status: with hypoglycemia Diabetes mellitus usp insulin use: with exterminator use (8) HTN (hypertension) Hypertension type: primary hypertension Qualified Code(s): I10 - Essential (primary) hypertension
[2024-01-22] MEDS: ACETAMINOPHEN 500 MG TAB PO STA (23:24)
[2024-01-22 23:50] LABS: BUN Creatinine Ratio 15.5 (10-20); Creatinine Clr Calc Pharmacy 43.6 ml/min; Est GFR (African American) 35.8 ml/min; Est GFR (Non-African American) 30.9 ml/min; Magnesium 1.5 mg/dl (1.7-2.4); Potassium 3.9 mmol/L (3.5-5.1)
[2024-01-23] MEDS: MAGNESIUM SULFATE / D5W 1 GM/100 ML BAG IV SCH (00:39)
[2024-01-23 07:11] LABS: Basophils # (auto) 0.08 K/uL (0.00-0.20); Basophils % (auto) 0.8 %; Eosinophils # (auto) 0.46 K/uL (0.00-0.50); Eosinophils % (auto) 4.5 %; Hematocrit (blood only) 32.1 % (37.0-47.0); Hemoglobin 9.8 g/dl (12.0-16.0); Immature Granulocytes # (auto) 0.19 K/uL (0.01-0.20); Immature Granulocytes % (auto) 1.9 %; Lymphocytes % (auto) 24.6 %; Mean Corpuscular Hemoglobin 26.6 pg (25.0-34.0); Mean Corpuscular Hgb Conc 30.5 g/dL (32.0-36.0); Mean Platelet Volume 9.8 fL (9.4-12.4); Monocytes # (auto) 0.74 K/uL (0.11-0.59); Monocytes % (auto) 7.3 %; Neutrophils # (auto) 6.19 K/uL (1.40-6.50); Neutrophils % (auto) 60.9 %; Platelet Count 447 K/uL (130-400); RDW Standard Deviation 51.5 fL (36.4-46.3); Red Blood Count 3.69 M/uL (4.20-5.40); White Blood Count 10.16 K/ul (4.8-10.8)
[2024-01-23 07:37] LABS: BUN Creatinine Ratio 16.7 (10-20); Calcium 8.9 mg/dl (8.6-10.3); Creatinine Clr Calc Pharmacy 47.1 ml/min; Est GFR (African American) 39.2 ml/min; Est GFR (Non-African American) 33.8 ml/min
--- NOTE | 2024-01-23 11:59 | Pharmacy Report ---
Pharmacy Glycemic Short Note 2 - Date of Service January 23, 2024 - Glycemic Short BSG Results (Last 24 hours): 01/22/24 01/22/24 01/22/24 16:27 20:20 23:01 Glucose 138 H POC Glucose 112 H 92 01/23/24 01/23/24 01/23/24 05:50 07:23 11:38 Glucose 142 H POC Glucose 145 H 180 H OUTPATIENT ANTIDIABETIC REGIMEN: * Tresiba 50 units HS, Novolog 8-8-10 esteban OMALLEY ASSESSMENT: 01/22 * Patient received total of 32 units of insulin yesterday, of which 8 units were basal * Fasting BSG 142 mg/dL - reasonable to continue with scale at HS for basal * No change to CF/CR 01/17 * Patient received only 10 units of insulin yesterday, of which 5 were basal for continued NPO status * Diet now ordered this AM, fasting BSG 133 mg/dL - reasonable to continue with scale for basal at HS as unclear what PO intake will be 01/15 * 68 year old admitted with fever/body aches - concerns for complicated UTI in setting of right ureteral stent. Patient currently NPO and urology consulted to determine if intervention is necessary. Patient known to pharmacy glycemic service from other admissions. Most recently admitted, 11/20-12/06 - insulin needs typically much less than outpatient dosing. Fasting BSG 117 mg/dL - per med list patient takes basal at HS. Will add scale for basal at HS. PLAN FOR INPATIENT GLYCEMIC CONTROL: * Hold outpatient oral diabetes medications * Basal insulin * Lantus 8-12 units SQ HS * Bolus insulin * NovoLog per scale ACHS or Q6hrs while NPO * Goal Range: Low 110 mg/dL - High 140 mg/dL * Correction Factor: 20 mg/dL/unit * Nutritional / Prandial insulin per carb ratio of 1 unit per 7 grams CHO consumed
--- NOTE | 2024-01-23 14:09 | Hospitalist Progress Note ---
Date of Service January 23, 2024 Assessment & Plan (1) Sepsis: (2) Complicated urinary tract infection: (3) Acute renal failure superimposed on stage 3 chronic kidney disease: (4) Ureteral stent retained: (5) Abdominal pain: (6) Diabetes mellitus, type II: (7) ELISSA on CPAP: (8) HTN (hypertension): (9) History of pulmonary embolism: (10) Chronic diastolic heart failure: (11) Chronic hypoxemic respiratory failure: Plan 68-year-old lady with PMH of IDDM 2, chronic hypoxic respiratory failure [4 L oxygen at home, multifactorial ISO CHF], diastolic CHF, cor pulmonale, interstitial lung disease, CKD stage III [baseline creatinine around 1.6], HTN, HLD, recurrent DVT status post IVC filter, transcarotid artery revascularization 09/09/2023, ELISSA on CPAP, heparin-induced thrombocytopenia, GERD, RLS, chronic constipation, chronic ambulatory dysfunction ISO knee pain presented to the ED 01/15 with 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 Of note patient has chronic constipation and takes milk of magnesia at home. Patient denies cough or sore throat or chest pain or headache or dizziness. She is being managed for the following: Right pyelonephritis iso indwelling ureteral stent Complicated UTI Sepsis: Secondary to above. Admitting heart rate/respiratory rate/WBC elevated. Procalcitonin and lactate WNL. 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 Admitting WBC, heart rate, pulse rate elevated. Procalcitonin and lactate WNL. Admitting imagings: XR KUB: Proximal portion of the right ureteral stent is folded on itself CXR: No acute finding. Chronic interstitial coarsening suggestive of fibrosis CTAP: Persistent right perinephric fat stranding, right-sided pyelonephritis, severe right-sided hydronephrosis. No renal or ureteral calculi. Multiple ventral hernias. No bowel obstruction. Urine culture appears contaminated. Resent urine culture 01/16, - VRE Admitting blood culture Pseudomonas aeruginosa bacteremia. Repeat blood culture no growth 48 hours. Patient on cefepime from 01/16, previous attending discussed with ID 01/18, transition to Cipro on discharge to complete total of 7 days of therapy. Continue on cefepime while hospitalized. Urology evaluated, OTC cranberry supplement or d-mannose along with estrogen cream for prevention of future UTI. Patient is started on daptomycin for VRE on January 21, 2024. Patient unable to t rikki linezolid due to interaction with her antidepressants. Acute kidney injury over CKD stage III, likely ATN: Baseline creatinine around 1.3-1.6, admitting creatinine of 1.95. Status post gentle IV fluid. Labs in AM. Avoid nephrotoxic agents Chronic hypoxic respiratory failure: On 4 L oxygen ELISSA on CPAP: Continue home CPAP Chronic diastolic CHF: Currently euvolemic, received IV fluids for ELSIE on CKD. Monitor for volume overload. TCAR by Dr. Alas in 08/2023: Continue ASA, Plavix. Continue with statin. DVT status post IVC filter and history of PE: On home Eliquis 2.5 twice daily, continue. DVT prophylaxis: Patient on Eliquis. Disposition PT/OT, CM to assist with DC planning. Patient needs IV antibiotics with daptomycin for UTI; continues to hospitalize for it. Possible discharge on Tuesday. Please note the above document was generated using voice recognition software. It may contain grammatical, syntax or spelling errors. Any formal questions or concerns about the content, text or information contained within the body of this dictation should be directly addressed to the provider for clarification Admission and Anticipated Discharge Date Admission Date: January 16, 2024 Subjective Patient seen and examined at bedside. She is comfortably sitting up on the chair at the side of the bed; not in distress. Vitals are stable. Review of Systems Review of Systems: All systems reviewed & are unremarkable except as noted in Subjective Physical Exam Physical Exam: GENERAL: Alert and oriented x3. NAD, on 4L NC O2. Comfortable; not in distress. HEENT: No pallor, no icterus. Pupils equal, round and reactive to light. Oral mucosa moist. NECK: No JVD, no neck masses. HEART: S1 and S2 heard. Regular rate and rhythm. No murmur, no gallop. RESPIRATORY SYSTEM: Normal AP diameter. No accessory muscle use. No wheezing, no crackles. ABDOMEN: Soft, bowel sounds present. Ventral hernia noted/non tender. low abd tender improving CENTRAL NERVOUS SYSTEM: No facial droop. Speech is clear. Obeys simple commands. Moves extremities. EXTREMITIES: trace ble edema, no erythema seen. Results & Data Results & Data Vital Signs (Past 12 Hours) Vital Signs Temp Pulse Resp BP Pulse Ox O2 Del Method O2 Flow Rate 01/23/24 11:35 36.7 C 78 19 112/62 98 Nasal Cannula 4.0 01/23/24 09:30 Nasal Cannula 4 01/23/24 07:30 36.4 C L 76 21 138/61 98 Nasal Cannula 4.0 01/23/24 03:45 36.5 C 87 19 128/71 95 Nasal Cannula 4 (5) Abdominal pain Abdominal location: right lower quadrant Qualified Code(s): R10.31 - Right lower quadrant pain (6) Diabetes mellitus, type II Diabetes mellitus complication status: with hypoglycemia Diabetes mellitus custodial insulin use: with custodial use (8) HTN (hypertension) Hypertension type: primary hypertension Qualified Code(s): I10 - Essential (primary) hypertension
[2024-01-23] MEDS: tiZANidine HCL 4 MG TABLET PO PRN (20:20)
[2024-01-24] MEDS: NYSTATIN POWDER 15GM BTL EXT SCH (12:00)
--- NOTE | 2024-01-24 15:15 | Hospitalist Progress Note ---
Date of Service January 24, 2024 Assessment & Plan (1) Sepsis: (2) Complicated urinary tract infection: (3) Acute renal failure superimposed on stage 3 chronic kidney disease: (4) Ureteral stent retained: (5) Abdominal pain: (6) Diabetes mellitus, type II: (7) ELISSA on CPAP: (8) HTN (hypertension): (9) History of pulmonary embolism: (10) Chronic diastolic heart failure: (11) Chronic hypoxemic respiratory failure: Plan 68-year-old lady with PMH of IDDM 2, chronic hypoxic respiratory failure [4 L oxygen at home, multifactorial ISO CHF], diastolic CHF, cor pulmonale, interstitial lung disease, CKD stage III [baseline creatinine around 1.6], HTN, HLD, recurrent DVT status post IVC filter, transcarotid artery revascularization 09/09/2023, ELISSA on CPAP, heparin-induced thrombocytopenia, GERD, RLS, chronic constipation, chronic ambulatory dysfunction ISO knee pain presented to the ED 01/15 with complaint of fever for 2 days 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 Of note patient has chronic constipation and takes milk of magnesia at home. Patient denies cough or sore throat or chest pain or headache or dizziness. She is being managed for the following: Right pyelonephritis iso indwelling ureteral stent Complicated UTI Sepsis: Secondary to above. Admitting heart rate/respiratory rate/WBC elevated. Procalcitonin and lactate WNL. Bacteremia: likely 2/2 right pyelonephritis Patient coming in with fever/not feeling well/right lower abdominal pain for 2 days CLERICAL CLERK. Admitting WBC, heart rate, pulse rate elevated. Procalcitonin and lactate WNL. Admitting imagings: XR KUB: Proximal portion of the right ureteral stent is folded on itself CXR: No acute finding. Chronic interstitial coarsening suggestive of fibrosis CTAP: Persistent right perinephric fat stranding, right-sided pyelonephritis, severe right-sided hydronephrosis. No renal or ureteral calculi. Multiple ventral hernias. No bowel obstruction. Urine culture appears contaminated. Resent urine culture 01/16, - VRE Admitting blood culture Pseudomonas aeruginosa bacteremia. Repeat blood culture no growth 48 hours. Patient on cefepime from 01/16, previous attending discussed with ID 01/18, transition to Cipro on discharge to complete total of 7 days of therapy. Continue on cefepime while hospitalized. Urology evaluated, OTC cranberry supplement or d-mannose along with estrogen cream for prevention of future UTI. Patient is started on daptomycin for VRE on January 21, 2024. Patient unable to t rikki linezolid due to interaction with her antidepressants. Acute kidney injury over CKD stage III, likely ATN: Baseline creatinine around 1.3-1.6, admitting creatinine of 1.95. Status post gentle IV fluid. Labs in AM. Avoid nephrotoxic agents Chronic hypoxic respiratory failure: On 4 L oxygen ELISSA on CPAP: Continue home CPAP Chronic diastolic CHF: Currently euvolemic, received IV fluids for ELSIE on CKD. Monitor for volume overload. TCAR by Dr. Alas in 08/2023: Continue ASA, Plavix. Continue with statin. DVT status post IVC filter and history of PE: On home Eliquis 2.5 twice daily, continue. DVT prophylaxis: Patient on Eliquis. Disposition PT/OT, CM to assist with DC planning. Patient needs IV antibiotics with daptomycin for UTI; continues to hospitalize for it. Possible discharge on Tuesday. Please note the above document was generated using voice recognition software. It may contain grammatical, syntax or spelling errors. Any formal questions or concerns about the content, text or information contained within the body of this dictation should be directly addressed to the provider for clarification Admission and Anticipated Discharge Date Admission Date: January 16, 2024 Subjective Patient seen and examined at bedside. She reports that she is feeling better; pain has improved No significant event overnight Review of Systems Review of Systems: All systems reviewed & are unremarkable except as noted in Subjective Physical Exam Physical Exam: GENERAL: Alert and oriented x3. NAD, on 4L NC O2. Comfortable; not in distress. HEENT: No pallor, no icterus. Pupils equal, round and reactive to light. Oral mucosa moist. NECK: No JVD, no neck masses. HEART: S1 and S2 heard. Regular rate and rhythm. No murmur, no gallop. RESPIRATORY SYSTEM: Normal AP diameter. No accessory muscle use. No wheezing, no crackles. ABDOMEN: Soft, bowel sounds present. Ventral hernia noted/non tender. low abd tender improving CENTRAL NERVOUS SYSTEM: No facial droop. Speech is clear. Obeys simple commands. Moves extremities. EXTREMITIES: trace ble edema, no erythema seen. 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
[2024-01-25 02:53] VITALS: TEMP 97.9
[2024-01-25 07:12] VITALS: BP 109/67; RESP 17; O2SAT 98
[2024-01-25 10:48] VITALS: PULSE 77
--- NOTE | 2024-01-25 15:28 | Discharge Summary ---
Date of Service January 25, 2024 Admission HPI Per Admitting Provider This is a 68-year-old female who has a significant past medical history of insulin-dependent T2DM, chronic hypoxic respiratory failure on 4 L of oxygen via nasal cannula multifactorial in setting of CHF, cor pulmonale and probable interstitial lung disease, CKD stage III baseline creatinine 1.6, diastolic CHF, HTN, HLD, history of recurrent DVT status post IVC filter, history of transcarotid artery revascularization done on 09/09/2023, ELISSA on CPAP, history of heparin-induced thrombocytopenia, GERD, RLS, chronic constipation, chronic amatory dysfunction in setting of knee pain who presents to ER secondary to fever times a few days. Of significance patient recently had a complicated hospitalization in which she was admitted 11/20 to 12/07/2023. Initially she was admitted secondary to amatory dysfunction in setting of severe osteoarthritis. Her hospital course became complicated when she developed urosepsis in setting of right ureteral obstruction requiring right ureteral stent placement by urology. Postoperatively she remained hypotensive requiring ICU admission and vasopressor support. She was treated with IV antibiotics. She was then discharged to SNF and was eventually discharged home. Her outpatient records were reviewed. Posthospitalization she has had follow-up with her primary care provider, Dr. Andujar as well as urology and cardiology. She remains on Lasix 60 mg twice daily. She presents today due to fever for the last few days. She is not sure how high her fever was as she states, "I cannot read my thermometer." She does recall being confused and feeling unable to operate her cell phone, but this resolved. She also complains of right lower quadrant abdominal pain. Pain started yesterday. She denies any chills or sweats, lightheadedness, dizziness, chest pain, shortness of breath, vomiting, dysuria, hematuria, increased urgency or frequency with urination, diarrhea. She continues to have chronic constipation. She does have postnasal drip and a cough and relates this is related to her seasonal allergies. She has not ate or drink anything this morning and she did not take any of her medications. Admission Exam Per Admitting Provider Constitutional: WD/WN, acutely ill, morbidly obese, vitals as above, NAD, sitting up in bed, pleasant, conversing easily Head: Normocephalic, Atraumatic Eyes: PERRL, conjunctivae normal, anicteric sclerae ENMT: external ear and nose normal, oropharynx normal Neck: trachea midline, no thyromegaly normal visual inspection Respiratory: normal respiratory effort, lungs clear to auscultation, no wheeze, rales, rhonchi. Normal insp/exp effort, no accessory muscle use Cardiovascular: RRR, no murmur, no edema but obese lower extremities vessels: no JVD or carotid bruit Chest: normal inspection of chest Abdomen: normal bowel sounds, soft, tender to light palpation at right lower quadrant, no hepatosplenomegaly Musculoskeletal: no cyanosis or clubbing, extremities motor strength 5/5 Skin: no rashes, warm and dry normal turgor Neurologic: PERRL, EOMI, accommodation nl, no face palsy, no dysarthria CN's II-XI intact bilaterally and moves all extremities Psychiatric: A+Ox3, euthymic affect Lymphatic: no cervical or axillary lymphadenopathy : deferred Principal Diagnosis Right pyelonephritis iso indwelling ureteral stent Complicated UTI Sepsis Bacteremia Discharge Exam GENERAL: Alert and oriented x3. NAD, on 4L NC O2. Comfortable; not in distress. HEENT: No pallor, no icterus. Pupils equal, round and reactive to light. Oral mucosa moist. NECK: No JVD, no neck masses. HEART: S1 and S2 heard. Regular rate and rhythm. No murmur, no gallop. RESPIRATORY SYSTEM: Normal AP diameter. No accessory muscle use. No wheezing, no crackles. ABDOMEN: Soft, bowel sounds present. Ventral hernia noted/non tender. low abd tender improving CENTRAL NERVOUS SYSTEM: No facial droop. Speech is clear. Obeys simple commands. Moves extremities. EXTREMITIES: trace ble edema, no erythema seen. Discharge Data Allergies Allergy/AdvReac Type Severity Reaction Status Date / Time morphine Allergy Severe Swelling, Verified 11/20/23 10:52 "Violent reaction- almost " dapagliflozin [From Farxiga] Allergy Intermediate Yeast Verified 11/20/23 10:52 infections tetanus toxoid, adsorbed Allergy Intermediate Passed Verified 11/20/23 10:52 out, "got sick" as child bupropion [From Wellbutrin] AdvReac Intermediate Recurrent Verified 11/20/23 10:52 falls as per patient codeine AdvReac Intermediate Hallucinati Verified 11/20/23 10:52 ons empagliflozin AdvReac Intermediate Yeast Verified 11/20/23 10:52 [From Jardiance] infections heparin AdvReac Intermediate HIT, Verified 11/20/23 10:52 "Fluid in lungs" hydrocodone [From Vicodin] AdvReac Intermediate Drowsy Verified 11/20/23 10:52 Consultations 01/16/24 07:39 ED Decision to Admit Stat 01/16/24 08:12 Consult Urology Routine 01/16/24 11:39 Consult Infectious Diseases Routine Ordered Studies 01/16/24 08:11 CT abd pelvis wo con Stat Hospital Course (1) Sepsis: (2) Complicated urinary tract infection: (3) Acute renal failure superimposed on stage 3 chronic kidney disease: (4) Ureteral stent retained: (5) Abdominal pain: (6) Diabetes mellitus, type II: (7) ELISSA on CPAP: (8) HTN (hypertension): (9) History of pulmonary embolism: (10) Chronic diastolic heart failure: (11) Chronic hypoxemic respiratory failure: Plan 68-year-old lady with PMH of IDDM 2, chronic hypoxic respiratory failure [4 L oxygen at home, multifactorial ISO CHF], diastolic CHF, cor pulmonale, interstitial lung disease, CKD stage III [baseline creatinine around 1.6], HTN, HLD, recurrent DVT status post IVC filter, transcarotid artery revascularization 09/09/2023, ELISSA on CPAP, heparin-induced thrombocytopenia, GERD, RLS, chronic constipation, chronic ambulatory dysfunction ISO knee pain presented to the ED 01/15 with complaint of fever for 2 days DENTAL INTERN associated with some 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 She was managed for following condition durings the hospitalization; Right pyelonephritis iso indwelling ureteral stent Complicated UTI with VRE Sepsis Bacteremia with Pseudomonas Patient coming in with fever/not feeling well/right lower abdominal pain for 2 days DENTAL INTERN. Admitting WBC, heart rate, pulse rate elevated. Procalcitonin and lactate WNL. Admitting imagings: XR KUB: Proximal portion of the right ureteral stent is folded on itself CXR: No acute finding. Chronic interstitial coarsening suggestive of fibrosis CTAP: Persistent right perinephric fat stranding, right-sided pyelonephritis, severe right-sided hydronephrosis. No renal or ureteral calculi. Multiple ventral hernias. No bowel obstruction. During the hospitalization, patient was treated with IV antibiotics for bacteremia secondary to Pseudomonas. Infectious disease and urology were also on board for comanagement. Patient was treated for VRE UTI with daptomycin. On the day of the discharge, patient did not have any pain or discomfort. She was voiding well without any issues Patient to follow-up with PCP and urology for exchange of the stent Please note the above document was generated using voice recognition software. It may contain grammatical, syntax or spelling errors. Any formal questions or concerns about the content, text or information contained within the body of this dictation should be directly addressed to the provider for clarification Total Time Total Time Spent Total Time Spent (In Minutes): 45 Total Time Includes: Examination of the Patient, Discharge Planning, Medication Reconciliation, Communication With Other Providers and Other Discharge Plan Discharge Items Patient Disposition: Home - Self-Care Reason For Visit: ?UTI Discharge Diagnosis: Right pyelonephritis iso indwelling ureteral stent Complicated UTI Sepsis: . Bacteremia: Activity: Resume your previous activity Non-emergency contact: Primary Care Provider Call non-emergency contact if: you have any medication questions and your symptoms worsen Follow-up/Referrals: Jennifer Granados CRNP [Nurse Practitioner] - (The Urology office will contact you for a follow up appointment.) Galdino Andujar DO [Primary Care Provider] - (Date & Time 02/02/2024 10:00 AM Provider Smitha Napier [address] [place] [address] Date & Time 02/02/2024 10:20 AM Provider Galdino Andujar DO [address] ) Diet: Regular Addtl Attending Provider Instructions: You were admitted to the hospital due to sepsis and UTI. You are treated with antibiotics during the hospitalization. Please follow-up with PCP and urology as scheduled. Your tresiba dose has been decreased to 20 units once a day. Pending Studies at Discharge: No Stand-Alone Forms: My YOLLEGE, Smoking Cessation Medications and DC Order Prescriptions: Continued atorvastatin 20 mg tablet 20 mg PO DAILY clonazepam 0.5 mg tablet 0.5 mg PO TID sennosides-docusate sodium [Senna-Time S] 8.6-50 mg tablet 1 tab PO BID aspirin 81 mg tablet,delayed release (DR/EC) 81 mg PO DAILY tramadol 50 mg tablet 50 mg PO TID PRN (Reason: Pain) potassium chloride 20 mEq tablet,ER particles/crystals 20 meq PO BID magnesium oxide 400 mg (241.3 mg magnesium) tablet 400 mg PO BID baclofen 10 mg tablet 10 mg PO BID PRN (Reason: Muscle Spasm) ropinirole 2 mg tablet 2 mg PO HS gabapentin 300 mg capsule 600 mg PO TID omeprazole 20 mg capsule,delayed release(DR/EC) 20 mg PO DAILY oxycodone 5 mg tablet 5 mg PO Q6H PRN (Reason: Pain) duloxetine 60 mg capsule,delayed release(DR/EC) See Rx Instructions .ROUTE .COMPLEX Rx Instructions: Take 60mg w/ 30mg by mouth to equal 90mg once every morning Mounjaro 5 mg/0.5 mL pen injector 5 mg SUBCUT WK Rx Instructions: tuesday furosemide 40 mg tablet 60 mg PO BID insulin aspart U-100 [Novolog FlexPen U-100 Insulin] 100 unit/mL (3 mL) insulin pen 8 unit SUBCUT UD Rx Instructions: 8units with breakfast and lunch and 10units with dinner triamcinolone acetonide 0.5 % cream 1 applic TOPICAL BID PRN (Reason: chest rash) dicyclomine 20 mg tablet 20 mg PO QID PRN (Reason: abdominal cramping) duloxetine 30 mg capsule,delayed release(DR/EC) See Rx Instructions .ROUTE .COMPLEX Rx Instructions: Take 30mg w/ 60mg by mouth to equal 90mg once every morning Eliquis 2.5 mg tablet 2.5 mg PO BID trazodone 100 mg tablet 50 mg PO HS Qty: 30 0RF levothyroxine 200 mcg tablet 200 mcg PO DAILYBB Qty: 30 0RF Rx Instructions: Reduced to 200meq daily while admitted cholecalciferol (vitamin D3) 25 mcg (1,000 unit) Tablet 25 mcg PO DAILY clopidogrel 75 mg tablet 75 mg PO DAILY Changed insulin degludec [Tresiba FlexTouch U-100] 100 unit/mL (3 mL) insulin pen 20 unit SUBCUT HS Qty: 15 0RF Discharge Orders: Discharge Order (Routine); Ordered 01/25/24 Ordered By: Main Carmichael Admission Data Admit Date/Time: 01/16/24 07:42 Attending Provider: Main Carmichael Admit Provider: David Castellanos Primary Care Provider: Galdino Andujar Other Providers: David Castellanos; Ihsan Muñoz; Carmelo Rodriguez; Henrry Bernal; Zachery Duncan I.; Jorge Rose II; Clover Wang; Michael Rodas; Rubén Krishnan; Kathie Mccarthy; Otf Hutchison; Luis M Moss; Norris,[facility] Other Interventions: Discharge Summary Assessment (RN) Last Done: 01/25/24 10:47
[2024-01-25] MEDS ORDERED: LANTUS PER UNIT CHARGE SQ SCH (21:00)
== END 2024-01-25 11:47 | disposition home or self-care (01) | DRG 698 ==
LOC: ED 05:05 → SUATTDRO 07:42 → EDINP 07:42 → 2S 16:10
DX: G47.33 Obstructive sleep apnea (adult) (pediatric); T83.592A Infection and inflammatory reaction due to indwelling ureteral stent, initial encounter; Z88.5 Allergy status to narcotic agent; E78.5 Hyperlipidemia, unspecified; N17.0 Acute kidney failure with tubular necrosis; Z11.52 Encounter for screening for COVID-19; Z79.890 Hormone replacement therapy; N18.30 Chronic kidney disease, stage 3 unspecified; A41.52 Sepsis due to Pseudomonas; Z79.02 Long term (current) use of antithrombotics/antiplatelets; I50.32 Chronic diastolic (congestive) heart failure; Z87.891 Personal history of nicotine dependence; Z16.21 Resistance to vancomycin; K59.09 Other constipation; Z79.82 Long term (current) use of aspirin; Z79.4 Long term (current) use of insulin; Z86.711 Personal history of pulmonary embolism; Z79.01 Long term (current) use of anticoagulants; E66.01 Morbid (severe) obesity due to excess calories; K21.9 Gastro-esophageal reflux disease without esophagitis; Z79.85 Long-term (current) use of injectable non-insulin antidiabetic drugs; J96.11 Chronic respiratory failure with hypoxia; I13.0 Hypertensive heart and chronic kidney disease with heart failure and stage 1 through stage 4 chronic kidney disease, or unspecified chronic kidney disease; Z86.718 Personal history of other venous thrombosis and embolism; E03.9 Hypothyroidism, unspecified; E11.40 Type 2 diabetes mellitus with diabetic neuropathy, unspecified; Z88.8 Allergy status to other drugs, medicaments and biological substances; J84.9 Interstitial pulmonary disease, unspecified; Z79.899 Other long term (current) drug therapy; N13.30 Unspecified hydronephrosis; Z99.81 Dependence on supplemental oxygen; Z68.41 Body mass index [BMI] 40.0-44.9, adult; E11.22 Type 2 diabetes mellitus with diabetic chronic kidney disease

== ENCOUNTER 2024-12-09 19:15 | Inpatient (IN) ==
--- OUTSIDE RECORDS SUMMARY | 2024-12-09 19:22 | External Medical Summary | Summary of Care ---
Author Name Unknown Organization [facility] Address [address] [place] [address] Phone [phone] Care Team Providers Care Weaving Instructor Name Role Phone PratimaGaldino DO Primary Care Provider Reason for Visit * Reason Comments Outpatient Testing Encounter Details Date Type Department Care Team (Late st Contact Info) Description 12/08/2024 9:50 AM EDT Laboratory Laboratory, [facility] [address] [place] [id number] [facility] [address] [place] [address] Dysuria Allergies Active Allergy Reactions Criticality Noted Date Comments Bupropion High 12/26/2021 Other reaction(s): Recurrent falls as per patient Codeine 07/08/2014 hallucination Dapagliflozin Other (Please comment) 02/28/2023 Yeast infection Pollen 05/18/2019 Heparin High 09/04/2009 Heparin Induced Thrombocytopenia Hydrocodone Neuro complications (Please comment) 07/28/2020 Empagliflozin Other (Please comment) Medium 05/17/2018 3 yeast infections in 6 weeks after starting Morphine And Codeine 09/16/1997 Hallucinations Tetanus Toxoid Other (Please comment) 06/15/2011 Passed out documented as of this encounter (statuses as of 12/08/2024) Medications ONETOUCH DELICA LANCETS 33G MISC Check blood sugars 3-4 times daily 180 Each 5 08/01/20 18 Active oxygen GASIndications:ELISSA (obstructive sleep apnea) Use 4 L/min(Oxygen) as directed continuous. 11/28/19 Active CPAP every night at bedtime. Active Acetaminophen 500 MG Oral Tablet (Tylenol) Take 2 Tablets by mouth in the morning and 2 Tablets at noon and 2 Tablets before bedtime. 100 Tablet 03/18/20 Active DIURETIC TITRATION PLAN If no improvement on day 3, contact heart failure managing provider. 1 Each 03/18/20 Active Dexcom G7 Sensor Use as directed. (From [facility]) 06/01/20 Active OneTouch Verio In Vitro Strip (Glucose Blood)Indications: Hypoglycemia,Type 2 diabetes mellitus with stage 3b chronic kidney disease, with long-term current use of insulin (HCC) Use up to 4 times a day in case of dexcom failure 100 Strip 11 12/06/2024 2:23 PM EDT 02/02/20 24 Active Mounjaro 7.5 MG/0.5ML Subcutaneous Solution Auto-injector (Tirzepatide)Indic ations:Type 2 diabetes mellitus with stage 3b chronic kidney disease, with long-term current use of insulin (HCC) Inject 7.5 mg under the skin once a week. 2 mL 11 11/27/2024 4:27 PM EST 06/26/20 24 Active Ondansetron HCl 4 MG Oral Tablet (Zofran)Indication s:Dizziness and giddiness Take 1 Tablet (4 mg) by mouth every 6 hours as needed for Nausea. 90 Tablet 6 07/04/20 24 Active Meclizine HCl 12.5 MG Oral Tablet (Antivert)Indicati ons:Vertigo Take 1 Tablet by mouth 3 times a day as needed for Dizziness. 30 Tablet 1 07/31/20 24 Active Aspirin 81 MG Oral Tablet Delayed ReleaseIndications :Type 2 diabetes mellitus with hemoglobin A1c goal of 7.0%-8.0% ([facility]) Take 1 Tablet by mouth in the morning. 28 Tablet 11 11/07/19 25 Active Cholecalciferol 25 MCG (1000 UT) Oral CapsuleIndications :Vitamin D deficiency Take 1 Capsule by mouth in the morning. 28 Capsule 5 11/07/19 25 Active clonazePAM 0.5 MG Oral Tablet (KlonoPIN)Indicati ons:Restless legs syndrome,Anxiety state Take 1 Tablet by mouth in the morning and 1 Tablet at noon and 1 Tablet before bedtime. 84 Tablet 11/14/2024 3:25 PM EST 11/07/19 25 Active Dicyclomine HCl 20 MG Oral Tablet (Bentyl)Indication s:Irritable bowel syndrome, unspecified type Take 1 Tablet by mouth 4 times a day as needed for Cramping. 180 Tablet 3 11/08/2024 12:53 PM EST 11/07/19 25 Active DULoxetine HCl 60 MG Oral Capsule Delayed Release Particles (Cymbalta)Indicati ons:Fibromyalgia,M ajor depressive disorder, recurrent, moderate (HCC) Take 1 Capsule by mouth in the morning. 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 56 Tablet 12/04/2024 11:11 AM EDT 11/07/19 25 Active Ferrous Sulfate 325 (65 Fe) MG Oral Tablet (Feosol)Indication s:Anemia Take 1 Tablet by mouth in the morning and 1 Tablet before bedtime. 56 Tablet 11 11/07/19 25 Active Fluticasone Propionate 50 MCG/ACT Nasal Suspension (Flonase) Administer 2 Sprays into nostril in the morning and 2 Sprays before bedtime. 16 g 3 12/04/2024 11:11 AM EDT 11/07/19 25 Active Furosemide 40 MG Oral Tablet (Lasix)Indications :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 3b chronic kidney disease (HCC) Take 1.5 Tablets by mouth 2 times a day. 84 Tablet 12/04/2024 11:11 AM EDT 11/07/19 25 Active Gabapentin 300 MG Oral Capsule (Neurontin)Indicat ions:Fibromyalgia, Lumbar radiculopathy Take 1 Capsule by mouth in the morning and 1 Capsule before bedtime. 60 Capsule 5 12/04/2024 11:11 AM EDT 11/07/19 25 Active Levothyroxine Sodium 200 MCG Oral Tablet (Levoxyl)Indicatio ns:Postsurgical hypothyroidism Take 1 Tablet by mouth daily first thing in the morning. (at least 30 min prior to breakfast or other meds) 28 Tablet 11 12/04/2024 11:11 AM EDT 11/07/19 25 Active Magnesium Oxide -Mg Supplement 400 (240 Mg) MG Oral Tablet (Mag-Ox)Indication s:Benign hypertensive heart and kidney disease with diastolic CHF, NYHA class 1 and CKD stage 3 ([facility]),Chronic diastolic congestive heart failure (HCC) Take 1 Tablet by mouth in the morning and 1 Tablet before bedtime. 56 Tablet 11/07/19 25 Active NovoLOG FlexPen 100 UNIT/ML Subcutaneous Solution Pen-injector (insulin aspart)Indications :Type 2 diabetes mellitus with hemoglobin A1c goal of 7.0%-8.0% ([facility]) Inject 8 units with breakfast and 6 units lunch and 10 units with dinner + sliding scale 1 units for every 30 units BG > 150. 150 mL 11/08/2024 12:53 PM EST 11/07/19 25 Active Omeprazole 20 MG Oral Capsule Delayed Release (PriLOSEC)Indicati ons:Gastroesophage al reflux disease with esophagitis without hemorrhage Take 1 Capsule by mouth in the morning. 28 Capsule 12/04/2024 11:11 AM EDT 11/07/19 25 Active Polyethylene Glycol 3350 17 GM/SCOOP Oral Powder (MiraLax)Indicatio ns:Drug-induced constipation Take 17 g by mouth in the morning. Dissolve one heaping tablespoon in 8 ounces of water or juice.. 476 g 11/07/19 25 Active Potassium Chloride Ayleen ER 20 MEQ Oral Tablet Extended ReleaseIndications :Benign hypertensive heart and kidney disease with diastolic CHF, NYHA class 1 and CKD stage 3 ([facility]),Chronic diastolic congestive heart failure (HCC) Take 1 Tablet by mouth in the morning and 1 Tablet before bedtime. 56 Tablet 12/04/2024 11:11 AM EDT 11/07/19 25 Active rOPINIRole HCl 2 MG Oral Tablet (Requip)Indication s:Restless legs syndrome Take 1 Tablet by mouth at bedtime. 28 Tablet 12/04/2024 11:11 AM EDT 11/07/19 25 Active Rosuvastatin Calcium 5 MG Oral Tablet (Crestor)Indicatio ns:Dyslipidemia Take 1 Tablet by mouth in the morning. 28 Tablet 12/04/2024 11:11 AM EDT 11/07/19 25 Active Sennosides-Docusat e Sodium 8.6-50 MG Oral Tablet (Senna-Time S) Take 1 Tablet by mouth in the morning and 1 Tablet before bedtime. 100 Tablet 6 11/07/19 25 Active traMADol HCl 50 MG Oral Tablet (Ultram)Indication s:Lumbar radiculopathy,Prim elif osteoarthritis of both knees Take 1 Tablet by mouth every 8 hours as needed for Pain, Severe. 90 Tablet 11/19/2024 10:28 AM EST 11/07/19 25 Active traZODone HCl 50 MG Oral Tablet (Desyrel) Take 1 Tablet by mouth at bedtime. 28 Tablet 5 12/04/2024 11:11 AM EDT 11/07/19 25 Active Tresiba FlexTouch 100 UNIT/ML Subcutaneous Solution Pen-injector (Insulin Degludec)Indicatio ns:Type 2 diabetes mellitus with hemoglobin A1c goal of 7.0%-8.0% ([facility]) INJECT 38 UNITS UNDER THE SKIN IN THE EVENING 15 mL 5 11/14/2024 3:25 PM EST 11/07/19 25 Active Clopidogrel Bisulfate 75 MG Oral Tablet (pLAVix) Take 1 Tablet by mouth in the morning. 28 Tablet 11 12/04/2024 11:11 AM EDT 11/07/19 25 Active Comfort EZ Pen [place] 31G X 8 MM (Insulin Pen Needle) use five times daily 500 Each 2 11/19/2024 11:42 AM EST 11/16/19 25 Active Ciprofloxacin HCl 250 MG Oral Tablet (Cipro)Indications :Acute cystitis without hematuria Take 1 Tablet by mouth in the morning and 1 Tablet before bedtime. Hold Tizanidine while taking Cipro. 10 Tablet 11/27/2024 4:27 PM EST 11/28/19 25 Active tiZANidine HCl 4 MG Oral Tablet (Zanaflex)Indicati ons:Spinal stenosis of lumbar region without neurogenic claudication Take 1 Tablet by mouth every 6 hours as needed for Muscle spasms. 60 Tablet 12/06/2024 2:23 PM EDT 12/07/19 25 Active Hospital, Clinic, or Other Facility Administered Medication Ordered Dose Route Frequency Start Date End Date Status Albuterol Sulfate (Proventil) (2.5 MG/3ML) 0.083% inhalation solution 2.5 mgIndications:ILD (interstitial lung disease) ([facility]),Chronic respiratory failure with hypoxia (HCC) 2.5 mg NEBULIZER PRN 10/11/2024 10/11/2025 Active Albuterol Sulfate (Proventil) (5 MG/ML) 0.5% *conc* inhalation solution 2.5 mgIndications:ILD (interstitial lung disease) (HCC),Chronic respiratory failure with hypoxia (HCC) 2.5 mg NEBULIZER PRN 10/11/2024 10/11/2025 Active documented as of this encounter (statuses as of 12/08/2024) Active Problems Problem Noted Date Diagnosed Date Morbid (severe) obesity with alveolar hypoventil ation 10/22/2024 Drug-induced constipation 10/22/2024 Body mass index (BMI) of 45.0 to 49.9 in adult 0 04/02/2024 Overview: Per Obesity protocol - Per Obesity protocol - Per Obesity protocol - Per Obesity Taxonomy ICD-10 update of inactive term 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 She states she has rx for atorvastatin and plavix to chart picker at pharmacy. Type 2 diabetes mellitus wit h stage 3b chronic kidney disease, with long-term current use of insulin 09/29/2022 Assessment & Plan (09/22/2023 8:19 AM EST): "RED FLAG" Diabetic symptoms: Other: none Goal HgbA1c <8 Diabetic Complications Vascular (examples: PVD, PAD, CAD, CVA) Renal (example: CKD, Proteinuria, Dialysis) Medication Regimen Basal/Long Acting Insulin GLP-1 Agonist (ex: Victoza, Trulicity, Ozempic) DM Secondary Prevention Moderate-High Intensity Statin Additional Comments Follows with MTM Using dexcom CGM Assessment & Plan (07/13/2023 1:34 PM EDT): "RED FLAG" Diabetic symptoms: Other: none Goal HgbA1c <7 Diabetic Complications Vascular (examples: PVD, PAD, CAD, CVA) Renal (example: CKD, Proteinuria, Dialysis) Medication Regimen Metformin Basal/Long Acting Insulin Bolus/Short Acting Insulin GLP-1 Agonist (ex: Victoza, Trulicity, Ozempic) DM Secondary Prevention Routine Podiatry Care Additional Comments Last hgba1c 03/05/23--7.1 Statin intolerant Following with MTM Assessment & Plan (03/20/2023 8:11 AM EDT): "RED FLAG" Diabetic symptoms: o Other: none Goal HgbA1c o <7 Diabetic Complications o Vascular (examples: PVD, PAD, CAD, CVA) o Renal (example: CKD, Proteinuria, Dialysis) Medication Regimen o Metformin o Basal/Long Acting Insulin o Bolus/Short Acting Insulin o GLP-1 Agonist (ex: Victoza, Trulicity, Ozempic) DM Secondary Prevention o Routine Podiatry Care Additional Comments o Last hgba1c 03/05/23--7.1 o Statin intolerant Assessment & Plan (02/03/2023 12:37 PM EDT): Last hemoglobin A1c 6.9 Current Status: Actively [...] state 09/29/2022 Sacroiliitis, not elsewhere classified 3 Assessment & Plan (02/03/2023 12:34 PM EDT): Has been having more back pain as of recently. Taking tramadol with minimal relief. Finished a course of steroids. No longer taking gabapentin due to other medication interactions. -has an appointment with her pain doctor next week -will also discuss pain control with her PCP next week ILD (interstitial lung disease) 08/11/2022 Assessment & Plan (08/11/2022 4:32 PM EST): Followed by freddy Stable today Moderate episode of recurrent major depressive d isorder 08/11/2022 Assessment & Plan (07/13/2023 1:40 PM EDT): She continues duloxetine. Sertraline also in pill packs but not in Epic list--d/c by pcp. See phone note, will taper off and monitor. Assessment & Plan (05/04/2023 2:21 PM EDT): Reports her depression is much improved now on duloxetine 90mg daily Assessment & Plan (03/20/2023 8:14 AM EDT): Followed by pcp, plan to transition from duloxetine to sertraline. Admits to depression d/t uncontrolled pain. Denies suicidal ideation. Has Crisis number to call if needed She currently continues duloxetine 60mg daily until new pill packs are delivered with new doses: Sertraline 50mg daily with duloxetine 30mg daily Assessment & Plan (02/03/2023 12:38 PM EDT): Mood appropriate and stable on duloxetine Assessment & Plan (12/24/2022 2:59 PM EDT): Stable on duloxetine Assessment & Plan (08/11/2022 4:38 PM EST): Stable today Continue duloxetine Primary osteoarthritis of both knees 08/11/2022 Assessment & Plan (08/11/2022 4:39 PM EST): Declines PT, reports it causes too much pain. Following with orthopedics Chronic kidney disease, stage 3b 07/05/2022 Overview: Per CKD protocol Encounter for long-term current use of medicatio n 01/07/2022 Overview (06/26/2024): Dr Andujar ICD-10 update of inactive term Type 2 diabetes mellitus wit h hemoglobin A1c goal of less than 8.0% 01/07/2022 Assessment & Plan (12/24/2022 2:58 PM EDT): Current Status: "Stable" for patient / At [...] is (DVT) of both lower extremities 01/07/2022 Assessment & Plan (02/03/2023 12:32 PM EDT): Continue Eliquis Assessment & Plan (12/24/2022 2:55 PM EDT): Stable -continue eliquis Assessment & Plan (07/01/2022 4:44 PM EDT): Filter in place. On eliquis Chronic hypoxemic respiratory failure 01/07/2022 Assessment & Plan (07/13/2023 1:33 PM EDT): At baseline. -continue O2 3 L at all times. Assessment & Plan (05/04/2023 2:23 PM EDT): At baseline. -continue O2 3 L at all times. Assessment & Plan (03/20/2023 8:05 AM EDT): At baseline. -continue O2 3 L at all times. Assessment & Plan (02/03/2023 12:33 PM EDT): At baseline. -continue O2 3 L at all times. Assessment & Plan (12/24/2022 2:55 PM EDT): O2 stable -continue oxygen 3 L at all times. Assessment & Plan (08/11/2022 4:33 PM EST): Wearing O2 2LPM at night and 3L during day with exertion, stable. Assessment & Plan (07/01/2022 4:44 PM EDT): Typically on 2 L at rest, 4 L with exertion. Currently on 3 L O2 stable 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 Atherosclerosis of [place] co ronary artery without angina pectoris 12/31/2021 Assessment & Plan (02/03/2023 12:28 PM EDT): No chest pain. Stable. -continue Eliquis -likely no Wili or beta-faviola due to hypotension. Statin intolerance Assessment & Plan (12/24/2022 2:43 PM EDT): No chest pain. Stable. -continue Eliquis -? Unsure why no beta faviola, wili, or ASA. Will investigate next visit Carotid artery stenosis, asymptomatic, right 03/2022 Assessment & Plan (12/24/2022 2:43 PM EDT): MRI neck this coming week F/u scheduled with Dr. Tang Spinal stenosis of lumbar re gion without neurogenic claudication 07/15/2020 Assessment & Plan (07/13/2023 1:35 PM EDT): Reports injection did not help pain. Using tramadol and tylenol with relief. Will use oxycodone for severe pain. Continues duloxetine. Assessment & Plan (05/04/2023 2:21 PM EDT): Pain is more controlled now on oxycodone prn and duloxetine 90mg daily Sees pain mgmt tomorrow for injection Assessment & Plan (02/03/2023 12:38 PM EDT): Plan as noted above 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/2019 Hypertensive heart and kidne y disease with chronic diastolic congestive heart failure and stage 3b chronic kidney disease 05/14/2019 Assessment & Plan (09/22/2023 8:22 AM EST): "RED FLAG" HF Symptoms: Leg Swelling (Examples: [...] Pro-BNP Chest X-Ray Additional Comments: Stable today Assessment & Plan (07/13/2023 1:34 PM EDT): "RED FLAG" HF Symptoms: Leg Swelling (Examples: [...] Plan BMP Pro-BNP Additional Comments: Stable today Assessment & Plan (05/04/2023 2:19 PM EDT): "RED FLAG" HF Symptoms: o Leg Swelling [...] o Pro-BNP Additional Comments: o Stable today Assessment & Plan (03/20/2023 8:08 AM EDT): "RED FLAG" HF Symptoms: o Leg Swelling [...] o Pro-BNP Additional Comments: o Stable today Assessment & Plan (02/03/2023 12:32 PM EDT): Current Status: "Stable" for patient / At [...] o Anticipated IV Lasix dose: 80 mg Assessment & Plan (12/24/2022 2:55 PM EDT): Current Status: "Stable" for patient / At [...] o Beta Faviola Therapy: Other: none o WILI Inhibitor/ARB Therapy: Other: none o Diuretic therapy: [...] plan still being defined and education ongoing Assessment & Plan (08/11/2022 4:44 PM EST): Current Status: "Stable" for patient / At [...] o Beta Faviola Therapy: No beta-faviola o WILI Inhibitor/ARB Therapy: No WILI/ARB/ARNI o Diuretic therapy: Lasix Self - Management [...] interventions for heart failure o Euvolemic today Assessment & Plan (07/01/2022 4:43 PM EDT): BP stable. Weight down. Breathing baseline. Cr. baseline -continue increased dose of lasix Lumbar radiculopathy 09/27/2018 Assessment & Plan (03/20/2023 8:17 AM EDT): Upcoming appt with pain mgmt Currently using tramadol with tylenol q 8 hours Continues duloxetine--dose to be lowered in future d/t starting sertraline. Baclofen to use prn. Reports she is using ibuprofen prn severe pain "as last resort" since it does help. Use with caution d/t CKD--defer to pcp Chronic heart failure with preserved ejection fr action 06/12/2018 Controlled substance agreement signed 07/14/2017 Gastroesophageal reflux disease with esophagitis 03/04/2017 Assessment & Plan (02/03/2023 12:34 PM EDT): Continue omeprazole Restless legs syndrome 03/25/2016 Assessment & Plan (12/24/2022 2:59 PM EDT): Continue Requip Assessment & Plan (07/01/2022 4:47 PM EDT): Sx controlled with Requip Fibromyalgia 02/02/2016 Assessment & Plan (12/24/2022 2:58 PM EDT): Continue tramadol Assessment & Plan (08/11/2022 4:37 PM EST): Uses percocet BID prn. Abnormality of gait 02/02/2016 Assessment & Plan (03/20/2023 8:05 AM EDT): Home PT to start [place] filter in place 08/19/2014 History of pulmonary embolus (PE) 07/16/2014 Assessment & Plan (02/03/2023 12:38 PM EDT): Continue Eliquis Assessment & Plan (12/24/2022 2:59 PM EDT): Continue Eliquis Essential hypertension with goal blood pressure less than 140/90 02/22/2014 Assessment & Plan (12/24/2022 2:49 PM EDT): BP stable -continue diuretics Venous insufficiency 02/07/2013 ELISSA (obstructive sleep apnea) 09/16/2011 Overview (03/12/2016): CPAP 11 cwp Mild, AHI 11.3 but with significant nocturnal hypoxemia Zhane Assessment & Plan (03/20/2023 8:17 AM EDT): Continue CPAP Assessment & Plan (02/03/2023 12:33 PM EDT): Continue CPAP Assessment & Plan (12/24/2022 2:56 PM EDT): Compliant with CPAP Postsurgical hypothyroidism 06/16/2011 Assessment & Plan (02/03/2023 12:35 PM EDT): TSH 1.1 in 11/18 -continue Synthroid Assessment & Plan (07/01/2022 4:44 PM EDT): Continue synthroid Dyslipidemia 09/04/2009 Overview (09/04/2009): Per Lipid Taxonomy. Assessment & Plan (07/13/2023 1:46 PM EDT): Planning to start atorvastatin, rx evidently given by vascular, has to chart picker rx documented as of this encounter (statuses as of 12/08/2024) Resolved Problems Problem Noted Date Diagnosed Date Resolved Date Food insecurity 11/05/2024 11/27/2024 Overview: Per [facility] Protocol Body mass index (BMI) of 40. 0 to 44.9 in adult 02/06/2024 04/05/2024 Overview: Per Obesity protocol - Per Obesity protocol - Per Obesity Taxonomy ICD-10 update of inactive term Acute combined systolic and diastolic congestive heart failure 10/04/2023 10/04/2023 Body mass index (BMI) of 45. 0 to 49.9 in adult 08/08/2023 02/08/2024 Overview: Per Obesity protocol - Per Obesity Taxonomy ICD-10 update of inactive term Food insecurity 03/07/2023 04/07/2023 Overview: Per [facility] Protocol Food insecurity 11/08/2022 12/08/2022 Overview: Per [facility] Protocol Type 2 diabetes mellitus wit h stage 3b chronic kidney disease 01/07/2022 06/21/2023 Type 2 diabetes mellitus wit h diabetic chronic kidney disease 12/31/2021 07/27/2022 Assessment & Plan (07/01/2022 4:47 PM EDT): Last hgba1c 7.6. 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 11/01/2022 Acute deep vein thrombosis ( DVT) of proximal vein of lower extremity, unspecified laterality 12/03/2021 03/12/2022 Hypotension 12/19/2020 01/07/2022 Uncontrolled type 2 diabetes mellitus with stage 4 chronic kidney disease, with long-term current use of insulin 01/07/2020 020 Overview: Per CKD protocol Primary osteoarthritis of left knee 11/20/2019 07/31/2024 Chronic respiratory failure with hypoxia 11/07/2019 12/19/2020 Vasculitis 11/07/2019 10/22/2024 Other atherosclerosis of lorrie martinez arteries of extremities, left leg 02/26/2019 11/20/2019 Impetigo 09/27/2018 05/14/2019 Mild episode of recurrent ma janae depressive disorder 08/26/2018 08/30/2022 Assessment & Plan (07/01/2022 4:50 PM EDT): Sx controlled with duloxetine, nortriptyline Thoracic back pain 07/25/2018 0 Overview (04/24/2020): Acute. Vaginal karmen 07/13/2018 08/26/2018 Hypervolemia 07/13/2018 [...] hemoglobin A1c goal of 7.0%-8.0% 10/14/2014 01/07/2022 Overview (01/22/2016): ICD-10 update of inactive term Statin intolerance 07/16/2014 4 Kidney disease, chronic, sta ge III (GFR 30-59 ml/min) 11/19/2013 01/06/2018 Overview: Per CKD protocol #1 HTN, goal below 140/80 05/15/201202/22 Overview: Per HTN Protocol #27. Nocturnal hypoxemia 07/22/2011 07/15/20 20 Overview (07/25/2011): Nocturnal ox 2 LPM 07/20/11 -- mean 84%, low 76%, time <89% 6:21 hours, TINY 47 DHC Nontoxic uninodular goiter 06/16/2011 1 10/17/2010 Body mass index (BMI) of 40.0-44.9 in adult 08/17/2010 05/24/2017 Obesity, morbid (more than 1 00 lbs over ideal weight or BMI > 40) 12/23/2009 06/30/2017 Overview (12/15/2015): Per Obesity Taxonomy ICD-10 update of inactive term HTN, GOAL BELOW 130/80 10/22/200905/18 Overview (10/22/2009): Per HTN Taxonomy. Pneumonia in aspergillosis 09/14/2009 0 02/15/2017 Venous thrombosis 09/14/2009 10/15/2010 Respiratory failure, acute 09/14/2009 0 02/15/2017 Spontaneous pneumothorax 09/14/2009 ELLIE (generalized anxiety disorder) 09/13/2009 07/02/2022 Assessment & Plan (07/01/2022 4:48 PM EDT): Sx controlled with Klonopin Dysuria 08/23/2009 02/15/2017 History of heparin-induced thrombocytopenia 08/22/2009 06/12/2018 Type 2 diabetes mellitus wit h hemoglobin A1c goal of less than 7.0% 07/10/2009 10/14/2014 Overview (01/20/2016): Modified per Diabetes protocol #14. ICD-10 update of inactive term Primary localized osteoarthrosis, lower leg 07/04/2008 11/20/2019 Dyslipidemia, goal LDL below 160 08/16/2007 09/04/2009 Overview (09/04/2009): Per Lipid Taxonomy. ADVANCE DIRECTIVE INFORMATION 03/01/2006 08/26/2018 Overview (03/01/2006): Pt has booklet. Other allergic rhinitis 12/31/200309/2017 Overview (07/19/2017): ICD-10 update of inactive term HTN, goal below 140/90 04/09/200310/22 Overview (10/22/2009): Per HTN Taxonomy. DM type 2, not at goal 05/29/200207/10 Overview (07/10/2009): Modified per Diabetes protocol #14. TENOSYNOVITIS FOOT-ANKLE 12/26/2001 Goiter 01/13/2000 06/28/2011 BACKACHE NOS 08/26/1999 05/24/2017 OBESITY, UNSPECIFIED 08/26/1999 010 Overview (12/23/2009): Per Obesity Taxonomy Perforation of intestine 05/ Overview (08/09/2011): COLON Diverticulitis documented as of this encounter (statuses as of 12/08/2024) Immunizations Name Administration Dates Next Due COVID-19 mRNA, LNP-s, No Pre serve, 2-Dose Series (Pfizer) 01/08/2021,12/18/2020 COVID-19, LNP-s, No Preserve , Navarro-sucrose, Ages 12+ (Pfizer) 2022,10/01/2021 COVID-19, MRNA-LNP, PF, 30 M CG/0.3 mL, 12 YRS AND ABOVE, IM (PFIZER-Comirnaty) 07/31/2024,07/26/2023 Pneumococcal Conjugate Vacci ne, 20-valent ([id number]) 03/12/2022 Pneumococcal Polysaccharide PPV23 (Pneumovax) 08/22/2009,06/15/2006 RSV Vac., Bivalent, Perfusio n F, Pf,0.5 Ml (Abrysvo) 02/14/2024 Season Influenza, Quad, PF, Adjuvanted, 65+ Yrs, IM (FLUAD) 06/13/2020 Seasonal Influenza Vac., MDV , IM, 0.5 mL (Fluzone) 06/13/2014,07/07/2012,06/28/2011,06/15,08/01/2009,07/04/2008,08/14/2007 ,10/19/2006 Seasonal Influenza, High Dos e, Trivalent, PF, IM (Fluzone HD) 06/26/2024 Seasonal Influenza, PF, 6 M & above, IM , (FluLaval or Fluzone) 07/23/2019,06/12/2018,07/14/2017 Seasonal Influenza, Quadriva lent Hd (Fluzone Hd) 06/21/2023,06/18/2022,07/20/2021 Seasonal Influenza, Quadriva lent, No Preserve, IM 06/24/2016,07/24/2015 Varicella Zoster Vaccine (Adult) 12/11/2015 Zoster Vaccine [...] Date Recorded PHQ Adult Total Score 2 10/22/2024 Hunger Vital Sign Answer Date Recorded Within the past 12 months, y ou worried that your food would run out before you got the money to buy more. Sometimes true Within the past 12 months, t he food you bought just didn't last and you didn't have money to get more. Sometimes true Childcare Answer Date Recorded Do you feel overwhelmed with taking care of a child, family member or friend? No 10/22/2024 Does your family need help f inding childcare? (Household - for ages 0-17 years) Not on file 10/22/2024 Clothing Answer Date Recorded Have you been unable to get clothing when it was really needed? No 10/22/2024 Is your family able to get c lothes or diapers when needed? (Household - for ages 0-17 years) Not on file 10/22/2024 Personal Safety Answer Date Recorded Do you feel unsafe or have concerns for your saf ety? No 10/22/2024 Do you have concerns for you r family's safety? (Household - for ages 0-17 years) Not on file 10/22/2024 Utilities Answer Date Recorded Do you have trouble paying y our heating, water, or electric bill? Yes 10/22/2024 Is your family able to pay t he heat, water, or electric bill? (Household - for ages 0-17 years) Not on file 10/22/2024 Does your family have access to good internet? (Household - for ages 0-17 years) Not on file 10/22/2024 Employment Status Answer Date Recorded Are you unemployed or without regular income? No 10/22/2024 Does the household have a re gular source of income? (Household - for ages 0-17 years) Not on file 10/22/2024 Social Connections Answer Date Recorded How often do you feel lonely or isolated from th ose around you? Never 10/22/2024 Financial Resource Strain Answer Date R ecorded Do you have any trouble payi ng for your medications, or do you think you might in the future? Yes 10/22/2024 Does your family have troubl e paying for medicine? (Household - for ages 0-17 years) Not on file 10/22/2024 Transportation Needs Answer Date Record ed READ ONLY Do you have troubl e getting a ride to medical visits or work? Never True 10/22/2024 Does your family have a hard time getting a ride to doctors visits? (Household - for ages 0-17 years) Not on file 10/22/2024 Has lack of transportation k ept you from medical appointments, meetings, work, or from getting things needed for daily living? Check all that apply. No 10/22/2024 Do you (or your family) have trouble finding or paying for a ride (transportation)? (Household - for ages 0-17 years) Not on file 10/22/2024 Housing Stability Answer Date Recorded Do you currently live in a s helter or have no steady place to sleep at night? No 10/22/2024 READ ONLY Do you think you a re at risk of becoming homeless? No 10/22/2024 Does your family worry about paying for your home or becoming homeless? (Household - for ages 0-17 years) Not on file 0 10/22/2024 Are you homeless or worried that you might be in the future? No 10/22/2024 Are you (or your family) jessie eless or worried that you might be in the future? (Household - for ages 0-17 years) Not on file Food Insecurity Answer Date Recorded Do you need food for this week? Yes 10/22/2024 Are you able to get enough f ood for your family? (Household - for ages 0-17 years) Not on file 10/22/2024 Does your family need food t his week? (Household - for ages 0-17 years) Not on file 10/22/2024 Do you always have enough fo od for your family? (Household - for ages 0-17 years) Not on file 10/22/2024 Food Insecurity Answer Date Recorded Within the past 12 months, y ou worried that your food would run out before you got the money to buy more. Sometimes true Within the past 12 months, t he food you bought just didn't last and you didn't have money to get more. Sometimes true Do you need food for this week? Yes 10/22/2024 Comments No Sex and Gender Information Value Date Recorded Sex Assigned at Female 11/07/2019 2:21 PM EST Legal Sex Female 5:59 AM EST Gender Identity Female 11/07/2019 2:21 PM EST Sexual Orientation Not on file Occupation Industry Job Start Date Job End Date Retired Not on file Not on file Not on file documented as of this encounter Plan of Treatment Upcoming Encounters Date Type Department Care Team (Late st Contact Info) Description 12/19/2024 1:30 PM EDT Office Visit Pulmonary Medicine, [facility] [address] [place] [address] Jhonny Holley MD [address] [place] [address] 12/20/2024 11:20 AM EDT Office Visit Family Practice [address] [facility] [address] [place] [phone] Galdino Andujar, DO [address] [place] [address] 01/09/2025 9:00 AM EDT Office Visit Urogynecology [facility] [address] [place] [address] Al Meyers MD [address] [place] [address] 02/05/2025 1:00 PM EDT Office Visit Family Practice [address] [facility] [address] [facility], [place] [phone] Galdino Andujar, 293 [place] [address] 06/13/2025 1:30 PM EDT Imaging Radiology [facility] [address] [facility] [address] [place] [address] 11/11/2025 1:15 PM EST Imaging Radiology [facility] [address] [facility] [place] [address] [place] [address] Pending Results Name Type Priority Associated Diagnoses Date /Time URINALYSIS, REFLEX TO CULTURE (NOT FOR NEUTROPENIC PATIENTS) Lab Routine Dysuria 12/08/2024 8:50 AM EDT URINALYSIS, REFLEX TO CULTURE (CUP ONLY) Lab Routine Dysuria 12/08/2024 8:50 AM EDT URINALYSIS, REFLEX TO CULTURE Lab Routine Dysuria 12/08/2024 8:50 AM EDT Scheduled Procedures Name Priority Associated Diagnoses Date/Ti me COLONOSCOPY FLEXIBLE PROXIMAL DIAGNOSTIC Recall Colon cancer screening Health Maintenance Due Date Last Done Comments Cologuard 2000 Fecal Occult Blood Test 2000 Sigmoidoscopy 2000 CKD PHOS USE SMARTSET 92509 12/26/2024 04/0 10/2023, 02/11/2023, 01/07/2022, Additional history exists Adult Wellness Visit 02/13/2025 02/14/2024, 08/05/20 22 GFR 04/21/2025 10/22/2024, 12/2 11/2023, 06/26/2024, Additional history exists HbA1c 04/21/2025 10/22/2024, 10/0 09/2023, 03/26/2024, Additional history exists Mammogram 06/12/2025 06/12/2024, 05/27, 04/21/2023, Additional history exists Diabetic Eye Exam 07/06/2025 07/06/2024, , 07/06/2024, Additional history exists Albumin/Creatinine Ratio 10/22/2025 025, 08/05/2023, 11/01/2022, Additional history exists CKD HGB USE SMARTSET 52853 10/22/202510/22, 10/22/2024, 10/11/2024, Additional history exists Depression Monitoring 10/22/2025 10/22/2024, 024 Diabetic Foot Exam 10/22/2025 10/22/2024, 0 10/04/2023, 11/01/2022, Additional history exists TSH 10/22/2025 10/22/2024, 11/25, 10/13/2023, Additional history exists Colonoscopy 02/17/2026 02/18/2016, 01/25, 01/28/2006, Additional history exists Colorectal Cancer Screening 02/17/2026 Zoster Vaccines Completed 05/08/2020, 10/27, 12/11/2015 Pneumococcal Vaccine: 50+ Years Completed 03/12/2022, 08/22/2009, 06/15/2006 Influenza Vaccine (FLU shot) Completed 06/26/2024, 06/21/2023, 06/18/2022, Additional history exists COVID-19 Vaccine Discontinued 07/31/2024, , 2022, Additional history exists HPV (Gardasil) Vaccine Aged Out No lo nger eligible based on patient's age to complete this topic Hepatitis B Vaccine Aged Out No longe r eligible based on patient's age to complete this topic MENINGOCOCCAL (MENACTRA/MENVEO) Aged Out No longer eligible based on patient's age to complete this topic Meningitis B Vaccine (Bexsero/Trumemba) Aged Out No longer eligible based on [...] Advanced care planning/counseling discussion Other specified counseling ILD (interstitial lung disease) (HCC)- Primary Postinflammatory pulmonary fibrosis Fibromyalgia Mylagia and myositis, unspecified Moderate episode of recurrent major depressive disorder (HCC) Primary osteoarthritis of both knees Primary localized osteoarthrosis, lower leg Chronic hypoxemic respiratory failure (HCC) Chronic respiratory failure 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 3b chronic kidney disease (HCC) Advanced care planning/counseling discussion- Primary Other specified counseling Atherosclerosis of [place] coronary artery of [place] heart without angina pectoris Carotid artery stenosis, [...] major depressive disorder (HCC) Advanced care planning/counseling discussion- Primary Other specified counseling Atherosclerosis of [place] coronary artery of [place] heart without angina pectoris Frank filter in [...] stenosis, lumbar region, without neurogenic claudication Lumbar radiculopathy- Primary Thoracic or lumbosacral neuritis or radiculitis, unspecified Moderate episode of recurrent major depressive disorder (HCC) Abnormality of gait Chronic hypoxemic respiratory failure (HCC) Chronic respiratory failure Fibromyalgia Mylagia and myositis, unspecified ELISSA (obstructive sleep apnea) Obstructive sleep apnea (adult) (pediatric) 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 3b chronic kidney disease (HCC)- Primary Spinal stenosis of lumbar region without neurogenic claudication Spinal stenosis, lumbar region, without neurogenic claudication Moderate episode of recurrent major depressive disorder (HCC) Chronic hypoxemic respiratory failure (HCC) Chronic respiratory failure Chronic hypoxemic respiratory failure (HCC)- Primary Chronic respiratory failure Type 2 diabetes mellitus with hemoglobin A1c goal of 7.0%-8.0% (HCC) Hypertensive heart and kidney disease with [...] disorder (HCC) Dyslipidemia Other and unspecified hyperlipidemia DM peripheral angiopathy (HCC) Type II or unspecified type diabetes mellitus with peripheral circulatory disorders, not stated as uncontrolled H/O transcarotid artery revascularization (TCAR)- Primary 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 3b chronic kidney disease (HCC) Type 2 diabetes mellitus with stage 3b chronic kidney disease, with long-term current use of insulin (HCC) Dysuria Screening mammogram for breast cancer documented in this encounter Advance Directives Documents on File Type Date Recorded Patient Tube Wrapper Expl anation POLST 03/19/2020 4:25 PM POLST * Full Code (Latest Code Status on File) Date Activated Date Inactivated Comments 06/15/2011 12:22 PM 06/17/2011 6:44 PM This order reflects the patients wishes and were consensually agreed upon. * Full Code Date Activated Date Inactivated Comments 09/12/2009 1:47 PM 06/03/2011 7:31 AM This order r eflects the patients wishes and were consensually agreed upon. * Full Code Date Activated Date Inactivated Comments 09/06/2009 4:03 PM 09/12/2009 1:47 PM This order reflects the patients wishes and were consensually agreed upon. * Full Code Date Activated Date Inactivated Comments 08/21/2009 3:22 PM 09/06/2009 4:03 PM This order reflects the patients wishes and were consensually agreed upon. Question Answer Comments Discussion of Advance Directives occurred with: Patient Does the patient have a Living Will? No Does the patient have Health Care Power of Attor shakir? No Healthcare Agents on File Name Relationship Healthcare Agent Relationship Communication Galdino Camp Other - (no specific identity) Health Care Power of Stained Glass Installer Princess Allen Other - (no specific identity) Health Care Power of Stained Glass Installer Care Teams Weaving Instructor Relationship Specialty Start Date End Date Galdino Andujar DO [address] [place] [address] PCP - General Internal Medicine 03/08/24 documented as of this encounter
--- OUTSIDE RECORDS SUMMARY | 2024-12-09 19:22 | External Medical Summary ---
Author Name Unknown Address Unknown Organization [id number][place] [place] [address] [place] [address] Laboratory Report Ordering Provider Test Date Status JAG SHULTZ 12/08/2024 08:50:56 Final Observation Date Value Abnormality Reference (Units) Status Bacteria identified in Specimen by Culture 12/08/2024 08:50:56 No significant growth Final Test: Culture, Urine, Quanti tative
Specimen Source: Urine, Clean Catch
Specimen Type: Urine
Specimen Date: 12/08/2024 0850
Result Date: 12/09/2024 1354
Result Status: Final result
Resulting Lab: [facility] [place] [facility] [place]
[address]
[place] [address]

CULTURE

No significant growth

null Performing Location [facility] [place] [address] [place] [address]
--- OUTSIDE RECORDS SUMMARY | 2024-12-09 19:22 | External Medical Summary ---
Author Name Unknown Address Unknown Organization [id number]:[facility] - [address] [place] [address] Laboratory Report Ordering Provider Test Date Status JAG SHULTZ 12/08/2024 08:50:56 Final Observation Date Value Abnormality Reference (Units ) Status Color of Urine by Auto 12/08/2024 08:50:56 Yellow Light Yellow, Yellow, Dark Yellow Final Clarity, Urine 12/08/2024 08:50:56 Slightly Cloudy Abnormal Clear Final Glucose [Mass/volume] in Urine by Automated test strip 12/08/2024 08:50:56 Negative Negative (mg/dL) Final Bilirubin.total [Presence] in Urine by Automated test strip 12/08/2024 08:50:56 Negative Negative Final Ketones [Mass/volume] in Urine by Automated test strip 12/08/2024 08:50:56 Negative Negative (mg/dL) Final Specific gravity, Urine 12/08/2024 08:50:56 1.020 1.003-1.030 Final Hemoglobin [Presence] in Urine by Automated test strip 12/08/2024 08:50:56 Moderate Abnormal Negative Final pH, Urine 12/08/2024 08:50:56 7.0 5.0-7.5 (Units) Final Protein [Mass/volume] in Urine by Automated test strip 12/08/2024 08:50:56 >=300 Abnormal Negative (mg/dL) Final Urobilinogen [Mass/volume] in Urine by Automated test strip 12/08/2024 08:50:56 0.2 0.2, 1.0 (mg/dL) Final Nitrite [Presence] in Urine by Automated test strip 12/08/2024 08:50:56 Negative Negative Final Leukocyte esterase [Presence] in Urine by Automated test strip 12/08/2024 08:50:56 Large Abnormal Negative Final RBC, Urine 12/08/2024 08:50:56 10-19 Abnormal 0-2 (/HPF) Final WBC, Urine 12/08/2024 08:50:56 50+ Abnormal 0-2 (/HPF) Final Bacteria [#/area] in Urine sediment by Microscopy high power field 12/08/2024 08:50:56 101-150 Abnormal 0-25 (/HPF) Final CULTURE, URINE - [facility] 12/08/2024 08:50:56 Final Quantitative urine culture t o be performed Per[facility] [address] [facility] [address]
--- OUTSIDE RECORDS SUMMARY | 2024-12-09 19:23 | External Medical Summary | Summary of Care ---
Author Name Unknown Organization [facility] Address [address] [place] [address] Phone [phone] Care Team Providers Care Second Hand Name Role Phone Pratima Galdino Neal DO Primary Care Provider Reason for Visit * Reason Onset Date Comments Test Results 12/05/2024 CT Chest Encounter Details Date Type Department Care Team (Late st Contact Info) Description 12/05/2024 Telephone Pulmonary Medicine, [facility] [address] [facility] [place] [address] Jhon[facility] Hol[facility] MD [address] [facility] [address] Test Results (CT Chest) Allergies Active Allergy Reactions Criticality Noted Date [...] as of this encounter (statuses as of 12/05/2024) Medications ONETOUCH DELICA LANCETS 33G MISC Check [...] Dexcom G7 Sensor Use as directed. (From [facility]) 06/01/20 Active OneTouch Verio In Vitro Strip (Glucose Blood)Indications: Hypoglycemia,Type 2 diabetes mellitus with stage 3b chronic kidney disease, with long-term current use of insulin (HCC) Use up to 4 times a day E11.9 in case of dexcom failure 100 Strip 11 02/02/20 24 Active Mounjaro 7.5 MG/0.5ML Subcutaneous [...] A1c goal of 7.0%-8.0% ([facility]) Take 1 Tablet by mouth in the [...] and 1 Capsule before bedtime. 60 Capsule 12/04/2024 11:11 AM EDT 11/07/19 25 Active Levothyroxine Sodium 200 MCG Oral Tablet (Levoxyl)Indicatio ns:Postsurgical hypothyroidism Take 1 Tablet by mouth daily first thing in the morning. (at least 30 min prior to breakfast or other meds) 28 Tablet 12/04/2024 11:11 AM EDT 11/07/19 25 Active Magnesium Oxide -Mg Supplement 400 (240 Mg) MG Oral Tablet (Mag-Ox)Indication s:Benign hypertensive heart and kidney disease with diastolic CHF, NYHA class 1 and CKD stage 3 ([facility]),Chronic diastolic congestive heart failure (HCC) Take 1 Tablet by mouth in the morning and 1 Tablet before bedtime. 56 Tablet 11/07/19 25 Active NovoLOG FlexPen 100 UNIT/ML Subcutaneous Solution Pen-injector (insulin aspart)Indications :Type 2 diabetes mellitus with hemoglobin A1c goal of 7.0%-8.0% ([facility]) Inject 8 units with breakfast and 6 [...] bedtime. 100 Tablet 6 11/07/19 25 Active tiZANidine HCl 4 MG Oral Tablet (Zanaflex)Indicati ons:Spinal stenosis of lumbar region without neurogenic claudication Take 1 Tablet by mouth every 6 hours as needed for Muscle spasms. 60 Tablet 11/08/2024 12:53 PM EST 11/07/19 25 Active traMADol HCl 50 MG [...] hemoglobin A1c goal of 7.0%-8.0% ([facility]) INJECT 38 UNITS UNDER THE SKIN IN THE EVENING 15 mL 5 11/14/2024 3:25 PM EST 11/07/19 25 Active Clopidogrel Bisulfate 75 MG Oral Tablet (pLAVix) Take 1 Tablet by mouth in the morning. 28 Tablet 11 12/04/2024 11:11 AM EDT 11/07/19 25 Active Comfort EZ Pen [place] 31G X 8 MM (Insulin Pen Needle) use five times daily 500 Each 2 11/19/2024 11:42 AM EST 11/16/19 25 Active Ciprofloxacin HCl 250 MG Oral Tablet (Cipro)Indications :Acute cystitis without hematuria Take 1 Tablet by mouth in the morning and 1 Tablet before bedtime. Hold Tizanidine while taking Cipro. 10 Tablet 11/27/2024 4:27 PM EST 11/28/19 25 Active Hospital, Clinic, or Other Facility Administered Medication Ordered Dose Route Frequency Start Date End Date Status Albuterol Sulfate (Proventil) (2.5 MG/3ML) 0.083% inhalation solution 2.5 mgIndications:ILD (interstitial lung disease) ([facility]),Chronic respiratory failure with hypoxia (HCC) 2.5 mg NEBULIZER PRN 10/11/2024 10/11/2025 Active Albuterol Sulfate (Proventil) (5 MG/ML) 0.5% *conc* inhalation solution 2.5 mgIndications:ILD (interstitial lung disease) (HCC),Chronic respiratory failure with hypoxia (HCC) 2.5 mg NEBULIZER PRN 10/11/2024 10/11/2025 Active documented as of this encounter (statuses as of 12/05/2024) Active Problems Problem Noted Date Diagnosed Date [...] vascular, reports upcoming carotid surgery at [facility]. She states she has rx for atorvastatin and plavix to tow picker at pharmacy. Type 2 diabetes mellitus [...] Anxiety state 09/29/2022 Sacroiliitis, not elsewhere classified Assessment & Plan (02/03/2023 12:34 PM EDT): [...] 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 Atherosclerosis of [place] co ronary artery without angina pectoris 12/31/2021 [...] 8:05 AM EDT): Home PT to start Bude filter in place 08/19/2014 History of pulmonary [...] rx evidently given by vascular, has to tow picker rx documented as of this encounter (statuses as of 12/05/2024) Resolved Problems Problem Noted Date Diagnosed Date [...] (12/23/2009): Per Obesity Taxonomy Perforation of intestine Overview (08/09/2011): COLON Diverticulitis documented as of this encounter (statuses as of 12/05/2024) Immunizations Name Administration Dates Next Due COVID-19 mRNA, LNP-s, No Pre serve, 2-Dose Series (Pfizer) 01/08/2021,12/18/2020 COVID-19, LNP-s, No Preserve , Navarro-sucrose, Ages 12+ (Pfizer) 2022,10/01/2021 COVID-19, MRNA-LNP, PF, 30 M CG/0.3 mL, 12 YRS AND ABOVE, IM (PFIZER-Comirnaty) 07/31/2024,07/26/2023 Pneumococcal Conjugate Vacci ne, 20-valent ([id number]) 03/12/2022 Pneumococcal Polysaccharide PPV23 (Pneumovax) 08/22/2009,06/15/2006 RSV [...] Miscellaneous Notes * Telephone Encounter - Flaca Hancock OSA - 12/05/2024 1:06 PM EDT LVM and sent my g for pt to schedule CT in May * Telephone Encounter - Sade Lozada LPN - 12/05/2024 7:25 AM EDT Please contact pt to schedule ct chest in 6 months. * Telephone Encounter - Sade Lozada LPN - 12/05/2024 7:22 AM EDT MyG sent. * Telephone Encounter - Sade Lozada LPN - 12/05/2024 7:02 AM EDT ----- Message from Jhonny Holley MD sent at 12/04/2024 6:19 PM EDT ----- CT chest 11/08/2024 was reviewed. Compared with historical data. Subpleural I LD, significant resolution of mosaic attenuation noted on prone views. 6 mm subpleural nodule of unknown significance. Six-month follow-up HRCT recommended and ordered. Please notify patient that CT chest has been reviewed and A SIX-MONTH FOLLOW-UP CT SCAN chest has been recommended. No additional recommendations. documented in this encounter Plan of Treatment Upcoming Encounters Date Type Department Care Team (Late st Contact Info) Description 12/19/2024 1:30 PM EDT Office Visit Pulmonary Medicine, [facility] [address] [facility] [place] [address] Jhonny Holley MD [address] [place] [address] 12/20/2024 11:20 AM EDT Office Visit Family Practice [address] [place] [address] [address] [place] [address] Galdino Andujar, DO [address] [place] [address] 02/05/2025 1:00 PM EDT Office Visit Family Practice [address] [facility] [address] [place] [address] Galdino Andujar, DO [address] [place] [address] 06/13/2025 1:30 PM EDT Imaging Radiology [address] [place] [phone] 11/11/2025 1:15 PM EST Imaging Radiology [address] [place] [phone] Scheduled Procedures Name Priority Associated Diagnoses Date/Ti me COLONOSCOPY FLEXIBLE PROXIMAL DIAGNOSTIC Recall Colon cancer screening Health Maintenance Due Date Last Done Comments Cologuard 2000 Fecal Occult Blood Test 2000 Sigmoidoscopy 2000 CKD PHOS USE SMARTSET 72807 12/26/2024 04/0 10/2023, 02/11/2023, 01/07/2022, Additional history [...] Additional history exists CKD HGB USE SMARTSET 00315 10/22/202510/22, 10/22/2024, 10/11/2024, Additional history exists Depression [...] File Type Date Recorded Patient Organizational Development Director Expl anation POLST 03/19/2020 4:25 PM [...] identity) Health Care Power of Professor Of Theology Princess Other - (no specific identity) Health Care Power of Professor Of Theology Care Teams Second Hand Relationship Specialty Start Date End Date Galdino Andujar DO [address] [place] [address] PCP - General Internal Medicine 03/08/24 documented as of this encounter
--- OUTSIDE RECORDS SUMMARY | 2024-12-09 19:23 | External Medical Summary | Summary of Care ---
Author Name Unknown Organization [facility] Address [address] [place] [address] Phone [phone] Care Team Providers Care Body Engineer Name Role Phone Pratima Galdino Neal DO Primary Care Provider [phone] Reason for Visit * Reason Onset Date Comments Test Results 12/05/2024 FeNO Encounter Details Date Type Department Care Team (Late st Contact Info) Description 12/05/2024 Telephone Pulmonary Medicine, [facility] [address] [facility] [place] [address] Jhonny Holley MD [address] [facility] [address] Test Results (FeNO) Allergies Active Allergy Reactions Criticality Noted Date [...] Dexcom G7 Sensor Use as directed. (From [facility]) 06/01/20 Active OneTouch Verio In Vitro Strip [...] 7.0%-8.0% ([facility]) Take 1 Tablet by mouth in the [...] CENTER) Inject 8 units with breakfast and 6 [...] of 7.0%-8.0% ([facility]) INJECT 38 UNITS UNDER THE SKIN IN THE EVENING 15 mL 5 11/14/2024 3:25 PM EST 11/07/19 25 Active Clopidogrel Bisulfate 75 MG Oral Tablet (pLAVix) Take 1 Tablet by mouth in the morning. 28 Tablet 11 12/04/2024 11:11 AM EDT 11/07/19 25 Active Comfort EZ Pen [place] 31G X 8 MM (Insulin Pen Needle) [...] inhalation solution 2.5 mgIndications:ILD (interstitial lung disease) ([facility]),Chronic respiratory failure with hypoxia (HCC) 2.5 mg [...] rx for atorvastatin and plavix to pick and shovel worker at pharmacy. Type 2 diabetes mellitus wit [...] 8:05 AM EDT): Home PT to start [place] filter in place 08/19/2014 History of pulmonary [...] evidently given by vascular, has to pick and shovel worker rx documented as of this encounter (statuses [...] (PFIZER-Comirnaty) 07/31/2024,07/26/2023 Pneumococcal Conjugate Vacci ne, 20-valent ([id number]) 03/12/2022 Pneumococcal Polysaccharide PPV23 (Pneumovax) 08/22/2009,06/15/2006 RSV [...] Miscellaneous Notes * Telephone Encounter - Sade Lozada LPN - 12/05/2024 7:03 AM EDT ----- Message from Jhonny Holley MD sent at 12/04/2024 6:20 PM EDT ----- FeNO 11 ppb, consistent with low likelihood for eosinophilic airway inflammation. Chart note documented in this encounter Plan of Treatment Upcoming Encounters Date Type Department Care Team (Late st Contact Info) Description 12/19/2024 1:30 PM EDT Office Visit Pulmonary Medicine, [facility] 132 [facility] [place] [address] Jhonny Holley MD [address] [place] [address] 12/20/2024 11:20 AM EDT Office Visit Family Practice [address] [place] [address] 293 [place] [phone] Galdino Andujar, 293 [place] [address] 02/05/2025 1:00 PM EDT Office Visit Family Practice [address] [facility] 293 [place] [phone] Galdino Andujar, 293 [place] [address] 06/13/2025 1:30 PM EDT Imaging Radiology [address] [place] [address] 11/11/2025 1:15 PM EST Imaging Radiology [address] [place] [phone] Scheduled Procedures Name Priority Associated Diagnoses Date/Ti me COLONOSCOPY FLEXIBLE PROXIMAL DIAGNOSTIC Recall Colon cancer screening Health Maintenance Due Date Last Done Comments Cologuard 2000 Fecal Occult Blood Test 2000 Sigmoidoscopy 2000 CKD PHOS USE SMARTSET 44008 12/26/2024 04/0 10/2023, 02/11/2023, 01/07/2022, Additional history exists Adult Wellness Visit 02/13/2025 02/14/2024, 08/05/20 22 GFR 04/21/2025 10/22/2024, 08/27, 06/26/2024, Additional history exists HbA1c 04/21/2025 10/22/2024, 100 09/2023, 03/26/2024, Additional history exists Mammogram 06/12/2025 06/12/2024, 05/27, 04/21/2023, Additional history exists Diabetic Eye Exam 07/06/2025 07/06/2024, , 07/06/2024, Additional history exists Albumin/Creatinine Ratio 10/22/2025 025, 08/05/2023, 11/01/2022, Additional history exists CKD HGB USE SMARTSET 97625 10/22/202510/22, 10/22/2024, 10/11/2024, Additional history exists Depression Monitoring 10/22/2025 10/22/2024, 024 Diabetic Foot Exam 10/22/2025 10/22/2024, 0 10/04/2023, 11/01/2022, Additional history exists TSH 10/22/2025 10/22/2024, 032 04/2024, 10/13/2023, Additional history exists Colonoscopy 02/17/2026 02/18/2016, [...] Documents on File Type Date Recorded Patient Commissions Specialist Expl anation POLST 03/19/2020 4:25 PM [...] (no specific identity) Health Care Power of Camera Tuning Engineer Princess Allen Other - (no specific identity) Health Care Power of Camera Tuning Engineer Care Teams Body Engineer Relationship Specialty Start Date End Date Galdino Andujar DO [address] [place] [address] PCP - General Internal Medicine 03/08/24 documented as of this encounter
--- OUTSIDE RECORDS SUMMARY | 2024-12-09 19:23 | External Medical Summary | Summary of Care ---
Author Name Unknown Organization [facility] Address [address] [place] [address] Phone [phone] Care Team Providers Care Cue Selector Name Role Phone Galdino Andujar DO Primary Care Provider [phone] Reason for Referral * Evaluate & Treat - Unlimited Visits (Within 10 days (routine)) - Authorized Specialty Diagnoses / Procedures Referred By Ethan chao Referred To Contact RESIDENT SERVICE COORDINATOR - Urogynecology / Gynecology Urology Diagnoses Vaginal pain Galdino Andujar DO [address] [place] [address] Phone: tel: fax: Referral ID Status Reason Start Date Expiration Date Visits Requested Visits Authorized [id number] Authorized Specialty Services Required 12/07/2024 999 999 Question Answer Referral Priority Within 10 days (routine) Where should this appointment be scheduled? [facility] What condition is the patient being referred for? Chronic Bladder Pain/Interstitial Cystitis/Dysuria Reason for Visit * Reason Onset Date Comments Other 12/07/2024 Encounter Details Date Type Department Care Team (Late st Contact Info) Description 12/07/2024 Telephone Family Practice [address] [facility] [place] [address] [place] [address] Galdino Andujar DO [address] [place] [address] Other Allergies Active Allergy Reactions Criticality Noted Date [...] as of this encounter (statuses as of 12/07/2024) Medications ONETOUCH DELICA LANCETS 33G MISC Check [...] Dexcom G7 Sensor Use as directed. (From [facility]) 06/01/20 Active OneTouch Verio In Vitro Strip [...] A1c goal of 7.0%-8.0% (HCC) Take 1 Tablet by mouth in [...] 1 Tablet before bedtime. 56 Tablet 11 12/04/2024 11:11 AM EDT 11/07/19 [...] mouth 2 times a day. 84 Tablet 11 12/04/2024 11:11 AM EDT 11/07/19 [...] bedtime. 56 Tablet 11 11/07/19 25 Active NovoLOG FlexPen 100 UNIT/ML Subcutaneous Solution Pen-injector (insulin aspart)Indications :Type 2 diabetes mellitus with hemoglobin A1c goal of 7.0%-8.0% ([facility]) Inject 8 units with breakfast and 6 units lunch and 10 units with dinner + sliding scale 1 units for every 30 units BG > 150. 150 mL 3 11/08/2024 12:53 PM EST 11/07/19 25 Active Omeprazole 20 MG Oral Capsule Delayed Release (PriLOSEC)Indicati ons:Gastroesophage al reflux disease with esophagitis without hemorrhage Take 1 Capsule by mouth in the morning. 28 Capsule 11 12/04/2024 11:11 AM EDT 11/07/19 25 Active Polyethylene Glycol 3350 17 GM/SCOOP Oral Powder (MiraLax)Indicatio ns:Drug-induced constipation Take 17 g by mouth in the morning. Dissolve one heaping tablespoon in 8 ounces of water or juice.. 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 100 Tablet 11/07/19 25 Active traMADol HCl 50 MG [...] 7.0%-8.0% ([facility]) INJECT 38 UNITS UNDER THE SKIN IN THE EVENING 15 mL 11/14/2024 3:25 PM EST 11/07/19 25 Active Clopidogrel Bisulfate 75 MG Oral Tablet (pLAVix) Take 1 Tablet by mouth in the morning. 28 Tablet 12/04/2024 11:11 AM EDT 11/07/19 25 Active Comfort EZ Pen [place] 31G X 8 MM (Insulin Pen Needle) use five times daily 500 Each 2 11/19/2024 11:42 AM EST 11/16/19 25 Active Ciprofloxacin HCl 250 MG Oral Tablet (Cipro)Indications :Acute cystitis without hematuria Take 1 Tablet by mouth in the morning and 1 Tablet before bedtime. Hold Tizanidine while taking Cipro. 10 Tablet 11/27/2024 4:27 PM EST 11/28/19 Active tiZANidine HCl 4 MG Oral Tablet (Zanaflex)Indicati ons:Spinal stenosis of lumbar region without neurogenic claudication Take 1 Tablet by mouth every 6 hours as needed for Muscle spasms. 60 Tablet 12/06/2024 2:23 PM EDT 12/07/19 Active Hospital, Clinic, or Other Facility Administered [...] as of this encounter (statuses as of 12/07/2024) Active Problems Problem Noted Date Diagnosed Date [...] by vascular, reports upcoming carotid surgery at [facility]. She states she has rx for atorvastatin and plavix to picked edge sewing machine operator at pharmacy. 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 Atherosclerosis of [place] ronary artery without angina pectoris 12/31/2021 [...] 8:05 AM EDT): Home PT to start [place] filter in [...] rx evidently given by vascular, has to picked edge sewing machine operator rx documented as of this encounter (statuses as of 12/07/2024) Resolved Problems Problem Noted Date Diagnosed Date [...] 20 Overview (07/25/2011): Nocturnal ox 2 LPM 10/25/11 -- mean [...] (03/01/2006): Pt has booklet. Other allergic rhinitis 12/31/2003 1209/2017 Overview (07/19/2017): ICD-10 update of inactive term [...] as of this encounter (statuses as of 12/07/2024) Immunizations Name Administration Dates Next Due COVID-19 mRNA, LNP-s, No Pre serve, 2-Dose Series (Exacaster) 01/08/2021,12/18/2020 COVID-19, LNP-s, No Preserve , Navarro-sucrose, Ages 12+ (Pfizer) 2022,10/01/2021 COVID-19, MRNA-LNP, PF, 30 M CG/0.3 mL, 12 YRS AND ABOVE, IM (PFIZER-Comirnaty) 07/31/2024,07/26/2023 Pneumococcal Conjugate Vacci ne, 20-valent ([id number]) 03/12/2022 Pneumococcal Polysaccharide PPV23 (Pneumovax) 08/22/2009,06/15/2006 RSV [...] Telephone Encounter - Shira Gross LPN - 12/07/2024 3:32 PM EDT Patient is aware and will comply. [facility] go [facility] for lab. * Telephone Encounter - Stacey Watson OSA - 12/07/2024 3:26 PM EDT Patient aware of appointment. * Telephone Encounter - Galdino Andujar DO - 12/07/2024 3:22 PM EDT January 09 with urogynecology [facility] Check UA with reflex culture * Telephone Encounter - Shira Gross LPN - 12/07/2024 3:11 PM EDT Is patient aware of appt? Dr Andujar, check another urine ? * Telephone Encounter - Stacey Watson OSA - 12/07/2024 2:52 PM EDT Patient scheduled first available is January 09 and patient placed on the weight list. * Telephone Encounter - Shira Gross LPN - 12/07/2024 2:48 PM EDT Please schedule uro online banking specialist enmanuel * Telephone Encounter - Galdino Andujar DO - 12/07/2024 2:46 PM EDT Refer to Urogynecology * Telephone Encounter - Shira Gross LPN - 12/07/2024 2:04 PM EDT Patient called in states "I have been fighting this yeast infection for one week" Recent urine done, states she feels it is related to yeast infection. Is not having any discharge, only problem is urinary frequency. Denies hematuria. Denies back pain. Does have vaginal itching. Thank you * Telephone Encounter - Francisco Temple MED ASSIST - 12/07/2024 2:02 PM EDT Patient thinks she has yeast infection. documented in this encounter Plan of Treatment Upcoming Encounters Date Type Department Care Team (Late st Contact Info) Description 12/19/2024 1:30 PM EDT Office Visit Pulmonary Medicine, [facility] [address] [place] [address] Jhonny Holley MD [address] [place] [address] 12/20/2024 11:20 AM EDT Office Visit Family [address] 293 [facility] [place] [phone] Galdino Andujar, DO 293 [facility] [place] [address] 01/09/2025 9:00 AM EDT Office Visit Urogynecology [facility] 132 [facility] [place] [address] Al Meyers MD [address] [place] [address] 02/05/2025 1:00 PM EDT Office Visit Family [address] 293 [facility] [place] [address] Galdino Andujar, DO [address] [facility] [place] [address] 06/13/2025 1:30 PM EDT Imaging Radiology [address] [place] [phone] 11/11/2025 1:15 PM EST Imaging Radiology [address] [place] [phone] Scheduled Orders Name Type Priority Associated Diagnoses Orde r Schedule URINALYSIS, REFLEX TO CULTURE (NOT FOR NEUTROPENIC PATIENTS) Lab Routine Dysuria Expected: 12/07/2024, Expires: 12/07/2025 Scheduled Procedures Name Priority Associated Diagnoses Date/Ti me COLONOSCOPY FLEXIBLE PROXIMAL DIAGNOSTIC Recall Colon cancer screening Scheduled Referrals Name Type Priority Associated Diagnoses Order Schedule UROGYNECOLOGY CLINIC REFERRAL OP (FEMALE ONLY) Referral Within 10 days (routine) Vaginal pain Ordered: 12/07/2024 Health Maintenance Due Date Last Done Comments Cologuard 2000 Fecal Occult Blood Test 2000 Sigmoidoscopy 2000 CKD PHOS USE SMARTSET 49270 12/26/2024 04/0 10/2023, 02/11/2023, 01/07/2022, Additional history exists Adult Wellness Visit 02/13/2025 02/14/2024, 08/05/20 22 GFR 04/21/2025 10/22/2024, 08/27, 06/26/2024, Additional history exists HbA1c 04/21/2025 10/22/2024, 1009/2023, 03/26/2024, Additional history exists Mammogram 06/12/2025 06/12/2024, 05/27, 04/21/2023, Additional history exists Diabetic Eye Exam 07/06/2025 07/06/2024, , 07/06/2024, Additional history exists Albumin/Creatinine Ratio 10/22/2025 025, 08/05/2023, 11/01/2022, Additional history exists CKD HGB USE SMARTSET 34850 10/22/202510/22, 10/22/2024, 10/11/2024, Additional history exists Depression [...] CKD stage 3 ([facility])- Primary Fibromyalgia Mylagia and myositis, unspecified Primary osteoarthritis of both knees Primary localized osteoarthrosis, lower leg Anxiety state Anxiety state, unspecified Recurrent deep vein thrombosis (DVT) of both lower extremities ([facility]) Chronic hypoxemic respiratory failure (HCC) Chronic respiratory failure 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 3b chronic kidney disease, with long-term current use of insulin (HCC) Restless legs syndrome Restless legs syndrome (RLS) ELLIE (generalized anxiety disorder) Generalized anxiety disorder Mild episode of recurrent major depressive disorder ([facility]) Advanced care planning/counseling discussion Other specified counseling ILD (interstitial lung disease) ([facility])- Primary Postinflammatory pulmonary fibrosis Fibromyalgia Mylagia and myositis, unspecified Moderate episode of recurrent major depressive disorder (HCC) Primary osteoarthritis of both knees Primary localized osteoarthrosis, lower leg Chronic hypoxemic respiratory failure (HCC) Chronic respiratory failure 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 3b chronic kidney disease (HCC) Advanced care planning/counseling discussion- Primary Other specified counseling Atherosclerosis of [place] coronary artery of [place] heart without angina pectoris Carotid artery stenosis, [...] discussion- Primary Other specified counseling Atherosclerosis of [place] coronary artery of [place] heart without angina pectoris [place] filter in place Other postprocedural status Hypertensive [...] with long-term current use of insulin (HCC) Vaginal pain- Primary Unspecified symptom associated with female genital organs Dysuria Screening mammogram for breast cancer documented in this encounter Advance Directives Documents on File Type Date Recorded Patient Pipe Cleaning Machine Operator Expl anation POLST 03/19/2020 4:25 [...] (no specific identity) Health Care Power of Reclamation Engineer Princess Allen Other - (no specific identity) Health Care Power of Reclamation Engineer Care Teams Cue Selector Relationship Specialty Start Date End Date Galdino Andujar DO [address] [place] [id number] PCP - General Internal Medicine 03/08/24 documented as of this encounter
--- OUTSIDE RECORDS SUMMARY | 2024-12-09 19:23 | External Medical Summary | Summary of Care ---
Author Name Unknown Organization [facility] Address [address] [place] [address] Phone [phone] Care Team Providers Care Senior Research Scientist Name Role Phone Galdino Andujar DO Primary Care Provider Encounter Details Date Type Department Care Team (Late st Contact Info) Description 12/04/2024 Orders Only Pulmonary Function Lab, [facility] [address] [facility] [place] [address] Jhon[facility] Hol[facility] [address] [facility] [address] Chronic respiratory failure with hypoxia (HCC)* Allergies Active Allergy Reactions Criticality Noted Date [...] current use of insulin ([facility]) Use up to 4 times a day E11.9 in case of dexcom failure 100 Strip 11 02/02/20 24 Active Mounjaro 7.5 MG/0.5ML Subcutaneous Solution Auto-injector (Tirzepatide)Indic ations:Type 2 diabetes mellitus with stage 3b chronic kidney disease, with long-term current use of insulin ([facility]) Inject 7.5 mg under the skin once [...] of 7.0%-8.0% ([facility]) Take 1 Tablet by mouth in the [...] [facility]),Chronic diastolic congestive heart failure (HCC) Take 1 Tablet by mouth in the morning and 1 Tablet before bedtime. 56 Tablet 11/07/19 25 Active NovoLOG FlexPen 100 UNIT/ML Subcutaneous Solution Pen-injector (insulin aspart)Indications :Type 2 diabetes mellitus with hemoglobin A1c goal of 7.0%-8.0% ([facility]) Inject 8 units with breakfast and 6 [...] [facility]),Chronic diastolic congestive heart failure (HCC) Take 1 [...] goal of 7.0%-8.0% ([facility]) INJECT 38 UNITS UNDER THE SKIN IN THE EVENING 15 mL 5 11/14/2024 3:25 PM EST 11/07/19 25 Active Clopidogrel Bisulfate 75 MG Oral Tablet (pLAVix) Take 1 Tablet by mouth in the morning. 28 Tablet 11 12/04/2024 11:11 AM EDT 11/07/19 25 Active Comfort EZ Pen [place] 31G X 8 MM (Insulin Pen Needle) [...] inhalation solution 2.5 mgIndications:ILD (interstitial lung disease) ([facility]),Chronic respiratory failure with hypoxia ([facility]) 2.5 mg NEBULIZER PRN 10/11/2024 10/11/2025 Active [...] upcoming carotid surgery at [facility]. She states she has rx for atorvastatin and plavix to poultry picking machine tender at pharmacy. 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 Atherosclerosis of [place] ronary artery without angina pectoris [...] 8:05 AM EDT): Home PT to start [place] filter in place 08/19/2014 History of pulmonary [...] with significant nocturnal hypoxemia Dickthaddeus Assessment & Plan (03/20/2023 8:17 AM EDT): [...] rx evidently given by vascular, has to poultry picking machine tender rx documented as of this encounter [...] (PFIZER-Comirnaty) 07/31/2024,07/26/2023 Pneumococcal Conjugate Vacci ne, 20-valent ([id number]) 03/12/2022 Pneumococcal Polysaccharide PPV23 (Pneumovax) 08/22/2009,06/15/2006 RSV [...] 1:30 PM EDT Office Visit Pulmonary Medicine, [facility] 132 [facility] [place] [address] Jhonny Holley MD [address] [place] [address] 12/20/2024 11:20 AM EDT Office Visit Family Practice [address] [place] [address] [address] [place] [address] Galdino Andujar, DO 293 [place] [address] 02/05/2025 1:00 PM EDT Office Visit Family Practice [address] [place] [address] [address] [place] [address] Galdino Andujar, DO 293 [place] [address] 06/13/2025 1:30 PM EDT Imaging Radiology [address] [place] [phone] 11/11/2025 1:15 PM EST Imaging Radiology [address] [place] [phone] Scheduled Procedures Name Priority Associated Diagnoses Date/Ti me COLONOSCOPY FLEXIBLE PROXIMAL DIAGNOSTIC Recall Colon cancer screening Health Maintenance Due Date Last Done Comments Liana 2000 Fecal Occult Blood Test 2000 Sigmoidoscopy 2000 CKD PHOS USE SMARTSET 88214 12/26/2024 04/0 10/2023, 02/11/2023, 01/07/2022, Additional history exists Adult Wellness Visit 02/13/2025 02/14/2024, 08/05/20 22 GFR 04/21/2025 10/22/2024, 12/2 11/2023, 06/26/2024, Additional history exists HbA1c 04/21/2025 10/22/2024, 1009/2023, 03/26/2024, Additional history exists Mammogram 06/12/2025 06/12/2024, 05/27, 04/21/2023, Additional history exists Diabetic Eye Exam 07/06/2025 07/06/2024, , 07/06/2024, Additional history exists Albumin/Creatinine Ratio 10/22/2025 025, 08/05/2023, 11/01/2022, Additional history exists CKD HGB USE SMARTSET 12029 10/22/202510/22, 10/22/2024, 10/11/2024, Additional history exists Depression [...] discussion- Primary Other specified counseling Atherosclerosis of [place] coronary artery of [place] heart without angina pectoris Carotid artery stenosis, asymptomatic, right Essential hypertension with goal blood pressure less than 140/[address] Other postprocedural status Hypertensive [...] discussion- Primary Other specified counseling Atherosclerosis of [place] coronary artery of [place] heart without angina pectoris [place] filter in [...] long-term current use of insulin (HCC) Chronic respiratory failure with hypoxia (HCC)- Primary Chronic respiratory failure Screening mammogram for breast cancer documented in this encounter Advance Directives Documents on File Type Date Recorded Patient Edger Machine Operator Expl anation POLST 03/19/2020 4:25 [...] (no specific identity) Health Care Power of Reconciliation Specialist Princesseugene Thrashery Other - (no specific identity) Health Care Power of Reconciliation Specialist Care Teams Senior Research Scientist Relationship Specialty Start Date End Date Galdino Andujar DO [address] [place] [address] PCP - General Internal Medicine 03/08/24 documented as of this encounter
--- OUTSIDE RECORDS SUMMARY | 2024-12-09 19:23 | External Medical Summary | Summary of Care ---
Author Name Unknown Organization [facility] Address [address] [place] [address] Phone [phone] Care Team Providers Care Senior Net Application Developer Name Role Phone Pratima Galdino Neal DO Primary Care Provider [phone] Reason for Referral * Precert (Within 10 days (routine)) - Authorized Specialty Diagnoses / Procedures Referred By Contac t Referred To Contact Radiology Diagnoses ILD (interstitial lung disease) (HCC) Lung nodule Procedures CT CHEST WO CONTRAST Jhonny Holley MD [address] [address] Phone: tel: fax: Referral ID Status Reason Start Date Expiration Date V isits Requested Visits Authorized [id number] Authorized 06/06/[phone] Encounter Details Date Type Department Care Team (Late st Contact Info) Description 12/04/2024 Orders Only Radiology [facility] 1st [facility] [address] [place] [phone] Jhonny Holley MD [address] [id number] ILD (interstitial lung disease) (HCC)*; Lung nodule Allergies Active Allergy Reactions Criticality Noted Date [...] 3-4 times daily 180 Each 5 08/01/20 Active oxygen GASIndications:ELISSA (obstructive sleep apnea) Use [...] Dexcom G7 Sensor [facility] as [facility]. [facility] 06/01/20 Active OneTouch Verio In Vitro Strip [...] and 1 Tablet before bedtime. 56 Tablet 5 12/04/2024 11:11 AM EDT 11/07/19 25 Active rOPINIRole HCl 2 MG Oral Tablet (Requip)Indication s:Restless legs syndrome Take 1 Tablet by mouth at bedtime. 28 Tablet 5 12/04/2024 11:11 AM EDT 11/07/19 25 Active Rosuvastatin Calcium 5 MG Oral Tablet (Crestor)Indicatio ns:Dyslipidemia Take 1 Tablet by mouth in the morning. 28 Tablet 5 12/04/2024 11:11 AM EDT [...] goal of 7.0%-8.0% ([facility]) INJECT 38 UNITS UNDER THE SKIN IN THE EVENING 15 mL 11/14/2024 3:25 PM EST 11/07/19 25 Active Clopidogrel Bisulfate 75 MG Oral Tablet (pLAVix) Take 1 Tablet by mouth in the morning. 28 Tablet 11 12/04/2024 11:11 AM EDT 11/07/19 25 Active Comfort EZ Pen [place] 31G X 8 MM (Insulin Pen Needle) [...] has rx for atorvastatin and plavix to machine operator hop picker at pharmacy. 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 Atherosclerosis of [place] co ronary artery without angina pectoris 12/31/2021 [...] to --unknown o WILI Inhibitor/ARB Therapy: No WIIL/ARB/ARNI secondary to: --unknown o Diuretic therapy: Lasix [...] 8:05 AM EDT): Home PT to start [place] filter in place 08/19/2014 History of pulmonary [...] 11.3 but with significant nocturnal hypoxemia Dicks Assessment & Plan (03/20/2023 8:17 AM EDT): [...] rx evidently given by vascular, has to machine operator hop picker rx documented as of this encounter [...] mRNA, LNP-s, No Pre serve, 2-Dose Series ([employer]) 01/08/2021,12/18/2020 COVID-19, LNP-s, No Preserve , Navarro-sucrose, Ages 12+ (Pfizer) 2022,10/01/2021 COVID-19, MRNA-LNP, PF, 30 M CG/0.3 mL, 12 YRS AND ABOVE, IM (PFIZER-Comirnaty) 07/31/2024,07/26/2023 Pneumococcal Conjugate Vacci ne, 20-valent ([id number]) 03/12/2022 Pneumococcal Polysaccharide PPV23 (Pneumovax) 08/22/2009,06/15/2006 RSV [...] [facility] [address] [facility] [place] [address] Jhonny Holley MD [address] [facility] [place] [address] 12/20/2024 11:20 AM EDT Office Visit Family Practice [address] [place] [address] [address] [place] [phone] Galdino Andujar DO [address] [place] [address], [place] [address] 02/05/2025 1:00 PM EDT Office Visit Family Practice [address] [facility] [address] [place] [phone] Galdino Andujar, DO [address] [place], [place] [address] 06/13/2025 1:30 PM EDT Imaging Radiology [address] [place] [phone] 11/11/2025 1:15 PM EST Imaging Radiology [address] [place] [address] Scheduled Orders Name Type Priority Associated Diagnoses Orde r Schedule CT CHEST WO CONTRAST Medical Imaging Routine ILD (interstitial lung disease) (HCC) Lung nodule Expected: 06/06/2025, Expires: 01/04/2026 Scheduled Procedures Name Priority Associated Diagnoses Date/Ti me COLONOSCOPY FLEXIBLE PROXIMAL DIAGNOSTIC Recall Colon cancer screening Health Maintenance Due Date Last Done Comments Cologuard 2000 Fecal Occult Blood Test 2000 Sigmoidoscopy 2000 CKD PHOS USE SMARTSET 75140 12/26/2024 040 10/2023, 02/11/2023, 01/07/2022, Additional history exists Adult Wellness Visit 02/13/2025 02/14/2024, 08/05/20 22 GFR 04/21/2025 10/22/2024, 08/27, 06/26/2024, Additional history exists HbA1c 04/21/2025 10/22/2024, 09/2023, 03/26/2024, Additional history exists Mammogram 06/12/2025 06/12/2024, 05/27, 04/21/2023, Additional history exists Diabetic Eye Exam 07/06/2025 07/06/2024, , 07/06/2024, Additional history exists Albumin/Creatinine Ratio 10/22/2025 025, 08/05/2023, 11/01/2022, Additional history exists CKD HGB USE SMARTSET 85567 10/22/202510/22, 10/22/2024, 10/11/2024, Additional history exists Depression [...] 1 and CKD stage 3 ([facility])- Primary Fibromyalgia Mylagia and myositis, unspecified Primary [...] Other specified counseling ILD (interstitial lung disease) ([facility])- Primary Postinflammatory pulmonary fibrosis Fibromyalgia Mylagia and myositis, unspecified Moderate episode of recurrent major depressive disorder (HCC) Primary osteoarthritis of both knees Primary localized osteoarthrosis, lower leg Chronic hypoxemic respiratory failure (HCC) Chronic respiratory failure 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 3b chronic kidney disease (HCC) Advanced care planning/counseling discussion- Primary Other specified counseling Atherosclerosis of [place] coronary artery of [place] heart without angina pectoris Carotid artery stenosis, asymptomatic, right Essential hypertension with goal blood pressure less than 140/[address] [address] Other postprocedural status Hypertensive [...] discussion- Primary Other specified counseling Atherosclerosis of [place] coronary artery of [place] heart without angina pectoris Frank filter in [...] of insulin (HCC) ILD (interstitial lung disease) (HCC)- Primary Postinflammatory pulmonary fibrosis Lung nodule Solitary pulmonary nodule Screening mammogram for breast cancer documented in this encounter Advance Directives Documents on File Type Date Recorded Patient Bank Operations Officer Expl anation POLST 03/19/2020 4:25 PM [...] (no specific identity) Health Care Power of Marine Animal Trainer Princess Allen Other - (no specific identity) Health Care Power of Marine Animal Trainer Care Teams Senior Net Application Developer Relationship Specialty Start Date End Date Galdino Andujar DO [address] [place] [address] PCP - General Internal Medicine 03/08/24 documented as of this encounter
--- OUTSIDE RECORDS SUMMARY | 2024-12-09 19:23 | External Medical Summary | Summary of Care ---
Author Name Unknown Organization [facility] Address [address] [place] [address] Phone [phone] Care Team Providers Care Or Rn Name Role Phone Galdino Andujar DO Primary Care Provider [phone] Reason for Visit * Reason Onset Date Comments Order Request 11/28/2024 DME request Encounter Details Date Type Department Care Team (Late st Contact Info) Description 11/28/2024 Telephone Family Practice [address] [facility] [place] [address] [place] [address] Galdino Andujar DO [address] [place] [address] Order Request (DME request) Allergies Active Allergy Reactions Criticality Noted Date [...] as of this encounter (statuses as of 12/03/2024) Medications ONETOUCH DELICA LANCETS 33G MISC Check [...] Dexcom G7 Sensor Use as directed. (From [facility]) 06/01/20 Active OneTouch Verio In Vitro Strip [...] A1c goal of 7.0%-8.0% ([facility]) Take 1 Tablet by mouth in [...] mouth in the morning. 28 Capsule 5 11/08/2024 12:53 PM EST 11/07/19 25 Active Apixaban 2.5 MG Oral Tablet (Eliquis)Indicatio ns:Recurrent deep vein thrombosis (DVT) of both lower extremities (HCC) Take 1 Tablet by mouth in the morning and 1 Tablet before bedtime. 56 Tablet 11/08/2024 12:53 PM EST 11/07/19 25 Active Ferrous Sulfate 325 (65 Fe) MG Oral Tablet (Feosol)Indication s:Anemia Take 1 Tablet by mouth in the morning and 1 Tablet before bedtime. 56 Tablet 11/07/19 25 Active Fluticasone Propionate 50 MCG/ACT Nasal Suspension (Flonase) Administer 2 Sprays into nostril in the morning and 2 Sprays before bedtime. 16 g 3 11/08/2024 12:53 PM EST 11/07/19 25 Active Furosemide 40 MG Oral Tablet (Lasix)Indications :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 3b chronic kidney disease (HCC) Take 1.5 Tablets by mouth 2 times a day. 84 Tablet 11/08/2024 12:53 PM EST 11/07/19 25 Active Gabapentin 300 MG Oral Capsule (Neurontin)Indicat ions:Fibromyalgia, Lumbar radiculopathy Take 1 Capsule by mouth in the morning and 1 Capsule before bedtime. 60 Capsule 11/08/2024 12:53 PM EST 11/07/19 25 Active Levothyroxine Sodium 200 MCG Oral Tablet (Levoxyl)Indicatio ns:Postsurgical hypothyroidism Take 1 Tablet by mouth daily first thing in the morning. (at least 30 min prior to breakfast or other meds) 28 Tablet 11/08/2024 12:53 PM EST 11/07/19 25 Active Magnesium Oxide -Mg Supplement 400 (240 Mg) MG Oral Tablet (Mag-Ox)Indication s:Benign hypertensive heart and kidney disease with diastolic CHF, NYHA class 1 and CKD stage 3 ([facility]),Chronic diastolic congestive heart failure (HCC) Take [...] by mouth in the morning. 28 Capsule 11/08/2024 12:53 PM EST 11/07/19 25 Active Polyethylene Glycol 3350 17 [...] [facility]),Chronic diastolic congestive heart failure (HCC) Take 1 Tablet by mouth in the morning and 1 Tablet before bedtime. 56 Tablet 11/08/2024 12:53 PM EST 11/07/19 25 Active rOPINIRole HCl 2 MG Oral Tablet (Requip)Indication s:Restless legs syndrome Take 1 Tablet by mouth at bedtime. 28 Tablet 11/08/2024 12:53 PM EST 11/07/19 25 Active Rosuvastatin Calcium 5 MG Oral Tablet (Crestor)Indicatio ns:Dyslipidemia Take 1 Tablet by mouth in the morning. 28 Tablet 11/08/2024 12:53 PM EST 11/07/19 25 Active Sennosides-Docusat e Sodium 8.6-50 [...] by mouth at bedtime. 28 Tablet 5 11/08/2024 12:53 PM EST 11/07/19 25 Active Tresiba FlexTouch 100 UNIT/ML Subcutaneous Solution Pen-injector (Insulin Degludec)Indicatio ns:Type 2 diabetes mellitus with hemoglobin A1c goal of 7.0%-8.0% ([facility]) INJECT 38 UNITS UNDER THE SKIN IN THE EVENING 15 mL 5 11/14/2024 3:25 PM EST 11/07/19 25 Active Clopidogrel Bisulfate 75 MG Oral Tablet (pLAVix) Take 1 Tablet by mouth in the morning. 28 Tablet 11 11/08/2024 12:53 PM EST 11/07/19 25 Active Comfort EZ Pen [place] 31G X 8 MM (Insulin Pen Needle) [...] inhalation solution 2.5 mgIndications:ILD (interstitial lung disease) ([facility]),Chronic respiratory failure with hypoxia ([facility]) 2.5 mg NEBULIZER PRN 10/11/2024 10/11/2025 Active Albuterol Sulfate (Proventil) (5 MG/ML) 0.5% *conc* inhalation solution 2.5 mgIndications:ILD (interstitial lung disease) (HCC),Chronic respiratory failure with hypoxia (HCC) 2.5 mg NEBULIZER PRN 10/11/2024 10/11/2025 Active documented as of this encounter (statuses as of 12/03/2024) Active Problems Problem Noted Date Diagnosed Date [...] by vascular, reports upcoming carotid surgery at [facility]. She states she has rx for atorvastatin and plavix to turkey picker at pharmacy. Type 2 diabetes mellitus [...] rx evidently given by vascular, has to turkey picker rx documented as of this encounter (statuses as of 12/03/2024) Resolved Problems Problem Noted Date Diagnosed Date [...] as of this encounter (statuses as of 12/03/2024) Immunizations Name Administration Dates Next Due COVID-19 mRNA, LNP-s, No Pre serve, 2-Dose Series ([employer]) 01/08/2021,12/18/2020 COVID-19, LNP-s, No Preserve , Navarro-sucrose, Ages 12+ (Pfizer) 2022,10/01/2021 COVID-19, MRNA-LNP, PF, 30 M CG/0.3 mL, 12 YRS AND ABOVE, IM (PFIZER-Comirnaty) 07/31/2024,07/26/2023 Pneumococcal Conjugate Vacci ne, 20-valent ([id number]) 03/12/2022 Pneumococcal Polysaccharide PPV23 (Pneumovax) 08/22/2009,06/15/2006 RSV Vac., Bivalent, Perfusio n F, Pf,0.5 Ml (Abrysvo) 02/14/2024 Season Influenza, Quad, PF, Adjuvanted, 65+ Yrs, IM (FLUAD) 06/13/2020 Seasonal Influenza Vac., MDV , IM, 0.5 mL (Fluzone) 06/13/2014,07/07/2012,06/28/2011,06/15,08/01/2009,07/04/2008,08/14/2007 ,10/19/2006,08/07/2004,09/04/2002 Seasonal Influenza, High Dos e, Trivalent, PF, [...] encounter Miscellaneous Notes * Telephone Encounter - Lorraine Schmitz CCMA - 12/03/2024 12:10 PM EDT Order submitted through [facility] * Telephone Encounter - Galdino Andujar DO - 12/02/2024 11:59 AM EDT Walker order signed. * Telephone Encounter - Chasity Del Toro LPN - 11/30/2024 3:59 PM EST DME pended * Telephone Encounter - Arminda Arellano RT (R) - 11/28/2024 7:40 AM EST Yesterday Stephanie Camp would like DME orders placed for : new heavy duty walker with seat and brake attachment ordered sand submitted to [facility]. [place] NOT want this to go to [facility]. She would like to try to get a Portable oxygen concentrator order submitted if possible. documented in this encounter Plan of Treatment Upcoming Encounters Date Type Department Care Team (Late st Contact Info) Description 12/19/2024 1:30 PM EDT Office Visit Pulmonary Medicine, [facility] [address] [facility] [place] [address] Jhonny Holley MD [address] [place] [address] 12/20/2024 11:20 AM EDT Office Visit [address] [place] [address] Galdino Andujar, DO [address] [place] [address] 02/05/2025 1:00 PM EDT Office Visit [address] [place] [phone] Galdino Andujar, DO [address] [place] [address] 06/13/2025 1:30 PM EDT Imaging Radiology [address] [facility] [place] [address] 11/11/2025 1:15 PM EST Imaging Radiology [address] [facility] [place] [phone] Scheduled Procedures Name Priority Associated Diagnoses Date/Ti me COLONOSCOPY FLEXIBLE PROXIMAL DIAGNOSTIC Recall Colon cancer screening Health Maintenance Due Date Last Done Comments Cologuard 2000 Fecal Occult Blood Test 2000 Sigmoidoscopy 2000 CKD PHOS USE SMARTSET 43969 12/26/[address] 10/2023, 02/11/2023, 01/07/2022, Additional history exists Adult Wellness Visit 02/13/2025 02/14/2024, 08/05/20 22 GFR 04/21/2025 10/22/2024, 12/2 11/2023, 06/26/2024, Additional history exists HbA1c 04/21/2025 10/22/2024, 09/2023, 03/26/2024, Additional history exists Mammogram 06/12/2025 06/12/2024, 05/27, 04/21/2023, Additional history exists Diabetic Eye Exam 07/06/2025 07/06/2024, , 07/06/2024, Additional history exists Albumin/Creatinine Ratio 10/22/2025 025, 08/05/2023, 11/01/2022, Additional history exists CKD HGB USE SMARTSET 62058 10/22/202510/22, 10/22/2024, 10/11/2024, Additional history exists Depression [...] current use of insulin ([facility]) Restless legs syndrome Restless legs syndrome (RLS) ELLIE (generalized anxiety disorder) Generalized anxiety disorder Mild episode of recurrent major depressive disorder ([facility]) Advanced care planning/counseling discussion Other specified counseling ILD (interstitial lung disease) ([facility])- Primary Postinflammatory pulmonary fibrosis Fibromyalgia Mylagia and myositis, unspecified Moderate episode of recurrent major depressive disorder ([facility]) Primary osteoarthritis of both knees Primary localized osteoarthrosis, lower leg Chronic hypoxemic respiratory failure (HCC) Chronic respiratory failure 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 3b chronic kidney disease ([facility]) Advanced care planning/counseling discussion- Primary Other specified counseling Atherosclerosis of [place] coronary artery of [place] heart without angina pectoris Carotid artery stenosis, asymptomatic, right Essential hypertension with goal blood pressure less than 140/[address] Other postprocedural status 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 3b chronic kidney disease ([facility]) Recurrent deep vein thrombosis (DVT) of both lower extremities (HCC) Chronic hypoxemic respiratory failure (HCC) Chronic respiratory failure ELISSA (obstructive sleep apnea) Obstructive sleep apnea (adult) (pediatric) Type 2 diabetes mellitus with hemoglobin A1c goal of less than 8.0% ([facility]) Fibromyalgia Mylagia and myositis, unspecified Restless legs syndrome Restless legs syndrome (RLS) Chronic kidney disease, stage 3b ([facility]) History of pulmonary embolus (PE) Personal history of pulmonary embolism Moderate episode of recurrent major depressive disorder ([facility]) Advanced care planning/counseling discussion- Primary Other specified counseling Atherosclerosis of [place] coronary artery of [place] heart without angina pectoris [place] filter in place Other postprocedural status Hypertensive [...] with long-term current use of insulin (HCC) Abnormality of gait- Primary Sacroiliitis, not elsewhere classified (HCC) Sacroiliitis, not elsewhere classified Spinal stenosis of lumbar region without neurogenic claudication Spinal stenosis, lumbar region, without neurogenic claudication Lumbar radiculopathy Thoracic or lumbosacral neuritis or radiculitis, unspecified Screening mammogram for breast cancer documented in this encounter Advance Directives Documents on File Type Date Recorded Patient Executive Talent Acquisition Consultant Expl anation POLST 03/19/2020 4:25 PM [...] identity) Health Care Power of Real Estate Management Specialist Princess Allen Other - (no specific identity) Health Care Power of Real Estate Management Specialist Care Teams Or Rn Relationship Specialty Start Date End Date Galdino Andujar DO [address] [place] [address] PCP - General Internal Medicine 03/08/24 documented as of this encounter
--- OUTSIDE RECORDS SUMMARY | 2024-12-09 19:24 | External Medical Summary ---
Author Name Unknown Address Unknown Organization : Laboratory Report Ordering Provider Test Date Status JAG SHULTZ 11/27/2024 15:12:00 Final Observation Date Value Abnormality Reference (Units ) Status Color of Urine by Auto 11/27/2024 15:12:00 Other Abnormal Light Yellow, Yellow Final Clarity, Urine 11/27/2024 15:12:00 Cloudy Abnormal Clear Final Glucose [Mass/volume] in Urine by Automated test strip 11/27/2024 15:12:00 Negative Negative (mg/dL) Final Bilirubin.total [Presence] in Urine by Automated test strip 11/27/2024 15:12:00 Negative Negative Final Ketones [Mass/volume] in Urine by Automated test strip 11/27/2024 15:12:00 Negative Negative (mg/dL) Final Specific gravity, Urine 11/27/2024 15:12:00 1.020 1.003-1.030 Final Hemoglobin [Presence] in Urine by Automated test strip 11/27/2024 15:12:00 Moderate Abnormal Negative Final pH, Urine 11/27/2024 15:12:00 7.0 5.0, 5.5, 6.0, 6.5, 7.0, 7.5 (units) Final Protein [Mass/volume] in Urine by Automated test strip 11/27/2024 15:12:00 30 Abnormal Negative (mg/dL) Final Urobilinogen, Urine 11/27/2024 15:12:00 0.2 0.2, 1.0 (mg/dL) Final Nitrite [Presence] in Urine by Automated test strip 11/27/2024 15:12:00 Negative Negative Final Leukocyte esterase [Presence] in Urine by Automated test strip 11/27/2024 15:12:00 Large Abnormal Negative Final Performing Location
--- OUTSIDE RECORDS SUMMARY | 2024-12-09 19:24 | External Medical Summary | Summary of Care ---
Author Name Unknown Organization [facility] Address [address] [place] [address] Phone [phone] Care Team Providers Care Medical Scientific Liaison Name Role Phone Galdino Andujar DO Primary Care Provider Reason for Visit * Reason Onset Date Comments Order Request 11/28/2024 DME request Encounter Details Date Type Department Care Team (Late st Contact Info) Description 11/28/2024 Telephone Family Practice [address] [facility] [place] [address] [place] [address] Galdino Andujar DO [address] [place] [address] Order Request (DME request) Allergies [...] Dexcom G7 Sensor Use as directed. (From [facility]) 06/01/20 Active OneTouch Verio In Vitro [...] 7.0%-8.0% ([facility]) Take 1 Tablet by [...] of 7.0%-8.0% ([facility]) INJECT 38 UNITS UNDER THE SKIN IN THE EVENING 15 mL 5 11/14/2024 3:25 PM EST 11/07/19 25 Active Clopidogrel Bisulfate 75 MG Oral Tablet (pLAVix) Take 1 Tablet by mouth in the morning. 28 Tablet 11 11/08/2024 12:53 PM EST 11/07/19 25 Active Comfort EZ Pen [place] 31G X 8 MM (Insulin Pen Needle) [...] inhalation solution 2.5 mgIndications:ILD (interstitial lung disease) ([facility]),Chronic respiratory failure with hypoxia ([facility]) 2.5 mg NEBULIZER PRN 10/11/2024 10/11/2025 Active [...] 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 Atherosclerosis of [place] co ronary artery without angina pectoris 12/31/2021 [...] mRNA, LNP-s, No Pre serve, 2-Dose Series (zuuka!) 01/08/2021,12/18/2020 COVID-19, LNP-s, No Preserve , Navarro-sucrose, Ages 12+ (Pfizer) 2022,10/01/2021 COVID-19, MRNA-LNP, PF, 30 M CG/0.3 mL, 12 YRS AND ABOVE, IM (PFIZER-Comirnaty) 07/31/2024,07/26/2023 Pneumococcal Conjugate Vacci ne, 20-valent ([id number]) 03/12/2022 Pneumococcal Polysaccharide PPV23 (Pneumovax) 08/22/2009,06/15/2006 RSV [...] 12/03/2024 12:10 PM EDT Order submitted through [employer] * Telephone Encounter - Galdino Andujar DO [...] and brake attachment ordered sand submitted to [employer]. [place] NOT want this to go to [facility]. She would like to try to get a Portable oxygen concentrator order submitted if possible. documented in this encounter Plan of Treatment Upcoming Encounters Date Type Department Care Team (Late st Contact Info) Description 12/19/2024 1:30 PM EDT Office Visit Pulmonary Medicine, [facility] [address] [facility] [place] [address] Jhonny Holley MD [address] [place] [address] 12/20/2024 11:20 AM EDT Office Visit [address] 293 [facility] [place] [address] Galdino Andujar, DO [address] [place] [address] 02/05/2025 1:00 PM EDT Office Visit [address] 293 [facility] [place] [phone] Galdino Andujar, DO 293 [place] [address] 06/13/2025 1:30 PM EDT Imaging Radiology [address] 132 [facility] [place] [address] 11/11/2025 1:15 PM EST Imaging Radiology [address] 132 [facility] [place] [phone] Scheduled Procedures Name Priority Associated Diagnoses Date/Ti me COLONOSCOPY FLEXIBLE PROXIMAL DIAGNOSTIC Recall Colon cancer screening Health Maintenance Due Date Last Done Comments Cologuard 2000 Fecal Occult Blood Test 2000 Sigmoidoscopy 2000 CKD PHOS USE SMARTSET 80348 12/26/20240 10/2023, 02/11/2023, 01/07/2022, Additional history exists Adult Wellness Visit 02/13/2025 02/14/2024, 08/05/20 22 GFR 04/21/2025 10/22/2024, 12/2 11/2023, 06/26/2024, Additional history exists HbA1c 04/21/2025 10/22/2024, 09/2023, 03/26/2024, Additional history exists Mammogram 06/12/2025 06/12/2024, 05/27, 04/21/2023, Additional history exists Diabetic Eye Exam 07/06/2025 07/06/2024, , 07/06/2024, Additional history exists Albumin/Creatinine Ratio 10/22/2025 025, 08/05/2023, 11/01/2022, Additional history exists CKD HGB USE SMARTSET 24833 10/22/202510/22, 10/22/2024, 10/11/2024, Additional history exists Depression [...] use of insulin ([facility]) Restless legs syndrome Restless legs syndrome (RLS) ELLIE (generalized anxiety disorder) Generalized anxiety disorder Mild episode of recurrent major depressive disorder ([facility]) Advanced care planning/counseling discussion Other specified counseling ILD (interstitial lung disease) ([facility])- Primary Postinflammatory pulmonary fibrosis Fibromyalgia Mylagia and myositis, unspecified Moderate episode of recurrent major depressive disorder ([facility]) Primary osteoarthritis of both knees Primary localized osteoarthrosis, lower leg Chronic hypoxemic respiratory failure (HCC) Chronic respiratory failure 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 3b chronic kidney disease ([facility]) Advanced care planning/counseling discussion- Primary Other specified counseling Atherosclerosis of [place] coronary artery of [place] heart without angina pectoris Carotid artery stenosis, asymptomatic, right Essential hypertension with goal blood pressure less than 140/[address] Other postprocedural status 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 3b chronic kidney disease ([facility]) Recurrent deep vein thrombosis (DVT) of both lower extremities (HCC) Chronic hypoxemic respiratory failure (HCC) Chronic respiratory failure ELISSA (obstructive sleep apnea) Obstructive sleep apnea (adult) (pediatric) Type 2 diabetes mellitus with hemoglobin A1c goal of less than 8.0% ([facility]) Fibromyalgia Mylagia and myositis, unspecified Restless legs syndrome Restless legs syndrome (RLS) Chronic kidney disease, stage 3b ([facility]) History of pulmonary embolus (PE) Personal history of pulmonary embolism Moderate episode of recurrent major depressive disorder ([facility]) Advanced care planning/counseling discussion- Primary Other specified counseling Atherosclerosis of [place] coronary artery of [place] heart without angina pectoris [place] filter in place Other postprocedural status Hypertensive [...] Documents on File Type Date Recorded Patient Bead Supervisor Expl anation POLST 03/19/2020 4:25 PM [...] specific identity) Health Care Power of Business Continuity Planner Princess Allen Other - (no specific identity) Health Care Power of Business Continuity Planner Care Teams Medical Scientific Liaison Relationship Specialty Start Date End Date Galdino Andujar DO [address] [place] [address] PCP - General Internal Medicine 03/08/24 documented as of this encounter
--- OUTSIDE RECORDS SUMMARY | 2024-12-09 19:24 | External Medical Summary | Summary of Care ---
Author Name Unknown Organization [facility] Address [address] [place] [address] Phone [phone] Care Team Providers Care Graphite Disk Assembler Name Role Phone Galdino Andujar DO Primary Care Provider [phone] Reason for Visit * Reason Onset Date Comments Order Request 11/28/2024 DME request Encounter Details Date Type Department Care Team (Late st Contact Info) Description 11/28/2024 Telephone Family Practice 65 [facility] [place], [place] [address] [place] [address] Galdino Andujar DO [address] [place] [address] Order Request (DME request) Allergies [...] Dexcom G7 Sensor Use as directed. (From [facility]) 06/01/20 Active OneTouch Verio In Vitro Strip [...] 7.0%-8.0% ([facility]) Take 1 Tablet by mouth in [...] [facility]),Chronic diastolic congestive heart failure (HCC) Take 1 Tablet by mouth in the morning and 1 Tablet before bedtime. 56 Tablet 11/07/19 25 Active NovoLOG FlexPen 100 UNIT/ML Subcutaneous Solution Pen-injector (insulin aspart)Indications :Type 2 diabetes mellitus with hemoglobin A1c goal of 7.0%-8.0% ([facility]) Inject 8 units with breakfast and [...] [facility]),Chronic diastolic congestive heart failure (HCC) Take [...] of 7.0%-8.0% ([facility]) INJECT 38 UNITS UNDER THE SKIN IN THE EVENING 15 mL 5 11/14/2024 3:25 PM EST 11/07/19 25 Active Clopidogrel Bisulfate 75 MG Oral Tablet (pLAVix) Take 1 Tablet by mouth in the morning. 28 Tablet 11 11/08/2024 12:53 PM EST 11/07/19 25 Active Comfort EZ Pen [place] 31G X 8 MM (Insulin Pen Needle) [...] inhalation solution 2.5 mgIndications:ILD (interstitial lung disease) ([facility]),Chronic respiratory failure with hypoxia ([facility]) 2.5 mg NEBULIZER PRN 10/11/2024 10/11/2025 [...] rx for atorvastatin and plavix to pick pulling machine operator at pharmacy. 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 Atherosclerosis of [place] co ronary artery without angina [...] evidently given by vascular, has to pick pulling machine operator rx documented as of this [...] mRNA, LNP-s, No Pre serve, 2-Dose Series ([employer]) 01/08/2021,12/18/2020 COVID-19, LNP-s, No Preserve , Navarro-sucrose, Ages 12+ (Pfizer) 2022,10/01/2021 COVID-19, MRNA-LNP, PF, 30 M CG/0.3 mL, 12 YRS AND ABOVE, IM (PFIZER-Comirnaty) 07/31/2024,07/26/2023 Pneumococcal Conjugate Vacci ne, 20-valent ([id number]) 03/12/2022 Pneumococcal Polysaccharide PPV23 (Pneumovax) 08/22/2009,06/15/2006 RSV [...] 12/03/2024 12:10 PM EDT Order submitted through [employer] * Telephone Encounter - Galdino Andujar DO [...] and brake attachment ordered sand submitted to [email or web address]. [place] NOT want this to go to [facility]. She would like to try to get a Portable oxygen concentrator order submitted if possible. documented in this encounter Plan of Treatment Upcoming Encounters Date Type Department Care Team (Late st Contact Info) Description 12/19/2024 1:30 PM EDT Office Visit Pulmonary Medicine, [facility] 132 [facility] [place] [address] Jhonny Holley MD [address] [place] [address] 12/20/2024 11:20 AM EDT Office Visit [address] 293 [place] [address] Galdino Andujar, DO [address] [place] [address] 02/05/2025 1:00 PM EDT Office Visit [address] 293 [place] [phone] Galdino Andujar, DO 293 [facility] [address] 06/13/2025 1:30 PM EDT Imaging Radiology [address] [facility] [place] [phone] 11/11/2025 1:15 PM EST Imaging Radiology [address] [facility] [place] [phone] Scheduled Procedures Name Priority Associated Diagnoses Date/Ti me COLONOSCOPY FLEXIBLE PROXIMAL DIAGNOSTIC Recall Colon cancer screening Health Maintenance Due Date Last Done Comments Cologuard 2000 Fecal Occult Blood Test 2000 Sigmoidoscopy 2000 CKD PHOS USE SMARTSET 85442 12/26/20240 10/2023, 02/11/2023, 01/07/2022, Additional history exists Adult Wellness Visit 02/13/2025 02/14/2024, 08/05/20 22 GFR 04/21/2025 10/22/2024, 12/2 11/2023, 06/26/2024, Additional history exists HbA1c 04/21/2025 10/22/2024, 09/2023, 03/26/2024, Additional history exists Mammogram 06/12/2025 06/12/2024, 05/27, 04/21/2023, Additional history exists Diabetic Eye Exam 07/06/2025 07/06/2024, , 07/06/2024, Additional history exists Albumin/Creatinine Ratio 10/22/2025 025, 08/05/2023, 11/01/2022, Additional history exists CKD HGB USE SMARTSET 74227 10/22/202510/22, 10/22/2024, 10/11/2024, Additional history exists Depression [...] use of insulin ([facility]) Restless legs syndrome Restless legs syndrome (RLS) ELLIE (generalized anxiety disorder) Generalized anxiety disorder Mild episode of recurrent major depressive disorder ([facility]) Advanced care planning/counseling discussion Other specified counseling ILD (interstitial lung disease) ([facility])- Primary Postinflammatory pulmonary fibrosis Fibromyalgia Mylagia and myositis, unspecified Moderate episode of recurrent major depressive disorder ([facility]) Primary osteoarthritis of both knees Primary localized osteoarthrosis, lower leg Chronic hypoxemic respiratory failure (HCC) Chronic respiratory failure 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 3b chronic kidney disease ([facility]) Advanced care planning/counseling discussion- Primary Other specified counseling Atherosclerosis of [place] coronary artery of [place] heart without angina pectoris Carotid artery stenosis, asymptomatic, right Essential hypertension with goal blood pressure less than 140/[address] [address] Other postprocedural status 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 3b chronic kidney disease ([facility]) Recurrent deep vein thrombosis (DVT) of both lower extremities (HCC) Chronic hypoxemic respiratory failure (HCC) Chronic respiratory failure ELISSA (obstructive sleep apnea) Obstructive sleep apnea (adult) (pediatric) Type 2 diabetes mellitus with hemoglobin A1c goal of less than 8.0% ([facility]) Fibromyalgia Mylagia and myositis, unspecified Restless legs syndrome Restless legs syndrome (RLS) Chronic kidney disease, stage 3b ([facility]) History of pulmonary embolus (PE) Personal history of pulmonary embolism Moderate episode of recurrent major depressive disorder ([facility]) Advanced care planning/counseling discussion- Primary Other specified counseling Atherosclerosis of [place] coronary artery of [place] heart without angina pectoris [place] filter in place Other postprocedural status Hypertensive [...] Documents on File Type Date Recorded Patient Bill Sorter Expl anation POLST 03/19/2020 4:25 PM POLST [...] (no specific identity) Health Care Power of Ball Shagger Princess Allen Other - (no specific identity) Health Care Power of Ball Shagger Care Teams Graphite Disk Assembler Relationship Specialty Start Date End Date Galdino Andujar DO [address] [facility] [address] PCP - General Internal Medicine 03/08/24 documented as of this encounter
--- OUTSIDE RECORDS SUMMARY | 2024-12-09 19:24 | External Medical Summary | Summary of Care ---
Author Name Unknown Organization [facility] Address [address] [place] [address] Phone [phone] Care Team Providers Care Welfare Administrator Name Role Phone Galdino Andujar DO Primary Care Provider [phone] Reason for Visit * Reason Comments Acute uti Urinary Tract Infection Symptoms Encounter Details Date Type Department Care Team (Latest Contact Info) Description 11/27/2024 3:00 PM EST Office Visit Family Practice [address] [facility], [place] [address] [place] [address] Galdino Andujar DO [address] [place] [address] Acute cystitis without hematuria*; Dysuria; Chronic heart failure with preserved ejection fraction ([facility]); Chronic hypoxemic respiratory failure ([facility]); Atherosclerosis of kashia coronary artery of kashia heart without angina pectoris; ELISSA (obstructive sleep apnea); Postsurgical hypothyroidism; Recurrent deep vein thrombosis (DVT) of both lower extremities ([facility]); Spinal stenosis of lumbar region without neurogenic claudication; Type 2 diabetes mellitus with stage 3b chronic kidney disease, with long-term current use of insulin ([facility]); Venous insufficiency; Iron deficiency; Moderate episode of recurrent major depressive disorder ([facility]); Body mass index (BMI) of 45.0 to 49.9 in adult ([facility]); Anxiety state; Abnormality of gait; Chronic kidney disease, stage 3b ([facility]); DM peripheral angiopathy ([facility]); Dyslipidemia; Essential hypertension with goal blood pressure less than 140/90; Fibromyalgia; Gastroesophageal reflux disease with esophagitis without hemorrhage; Heparin induced thrombocytopenia (HIT) ([facility]); History of pulmonary embolus (PE); ILD (interstitial lung disease) ([facility]) Allergies Active Allergy Reactions Criticality Noted Date [...] as of this encounter (statuses as of 11/27/2024) Medications ONETOUCH DELICA LANCETS 33G MISC Check [...] Dexcom G7 Sensor Use as directed. (From [facility]) 06/01/20 Active OneTouch Verio In Vitro [...] skin once a week. 2 mL 11 5 4:27 PM EST 06/26/20 24 Active Ondansetron [...] and 1 Tablet before bedtime. 84 Tablet 5 3:25 PM EST 11/07/19 25 Active Dicyclomine HCl 20 MG Oral Tablet (Bentyl)Indication s:Irritable bowel syndrome, unspecified type Take 1 Tablet by mouth 4 times a day as needed for Cramping. 180 Tablet 3 5 12:53 PM EST 11/07/19 25 Active DULoxetine HCl 60 MG Oral Capsule Delayed Release Particles (Cymbalta)Indicati ons:Fibromyalgia,M ajor depressive disorder, recurrent, moderate (HCC) Take 1 Capsule by mouth in the morning. 28 Capsule 5 5 12:53 PM EST 11/07/19 25 Active Apixaban 2.5 MG Oral Tablet (Eliquis)Indicatio ns:Recurrent deep vein thrombosis (DVT) of both lower extremities (HCC) Take 1 Tablet by mouth in the morning and 1 Tablet before bedtime. 56 Tablet 11 5 12:53 PM EST 11/07/19 25 Active Ferrous Sulfate 325 (65 Fe) MG Oral Tablet (Feosol)Indication s:Anemia Take 1 Tablet by mouth in the morning and 1 Tablet before bedtime. 56 Tablet 11 11/07/19 25 Active Fluticasone Propionate 50 MCG/ACT Nasal Suspension (Flonase) Administer 2 Sprays into nostril in the morning and 2 Sprays before bedtime. 16 g 3 5 12:53 PM EST 11/07/19 25 Active Furosemide 40 MG Oral Tablet (Lasix)Indications :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 3b chronic kidney disease (HCC) Take 1.5 Tablets by mouth 2 times a day. 84 Tablet 5 12:53 PM EST 11/07/19 25 Active Gabapentin 300 MG Oral Capsule (Neurontin)Indicat ions:Fibromyalgia, Lumbar radiculopathy Take 1 Capsule by mouth in the morning and 1 Capsule before bedtime. 60 Capsule 5 12:53 PM EST 11/07/19 25 Active Levothyroxine Sodium 200 MCG Oral Tablet (Levoxyl)Indicatio ns:Postsurgical hypothyroidism Take 1 Tablet by mouth daily first thing in the morning. (at least 30 min prior to breakfast or other meds) 28 Tablet 5 12:53 PM EST 11/07/19 25 Active Magnesium Oxide -Mg Supplement 400 (240 Mg) MG Oral Tablet (Mag-Ox)Indication s:Benign hypertensive heart and kidney disease with diastolic CHF, NYHA class 1 and CKD stage 3 ([facility]),Chronic diastolic congestive heart failure (HCC) Take 1 Tablet by mouth in the morning and 1 Tablet before bedtime. 56 Tablet 11/07/19 25 Active NovoLOG FlexPen 100 UNIT/ML Subcutaneous Solution Pen-injector (insulin aspart)Indications :Type 2 diabetes mellitus with hemoglobin A1c goal of 7.0%-8.0% ([facility]) Inject 8 units with breakfast and 6 units lunch and 10 units with dinner + sliding scale 1 units for every 30 units BG > 150. 150 mL 5 12:53 PM EST 11/07/19 25 Active Omeprazole 20 MG Oral Capsule Delayed Release (PriLOSEC)Indicati ons:Gastroesophage al reflux disease with esophagitis without hemorrhage Take 1 Capsule by mouth in the morning. 28 Capsule 5 12:53 PM EST 11/07/19 25 Active Polyethylene [...] and CKD stage 3 ([facility]),Chronic diastolic congestive heart failure (HCC) Take 1 Tablet by mouth in the morning and 1 Tablet before bedtime. 56 Tablet 5 5 12:53 PM EST 11/07/19 25 Active rOPINIRole HCl 2 MG Oral Tablet (Requip)Indication s:Restless legs syndrome Take 1 Tablet by mouth at bedtime. 28 Tablet 5 5 12:53 PM EST 11/07/19 25 Active Rosuvastatin Calcium 5 MG Oral Tablet (Crestor)Indicatio ns:Dyslipidemia Take 1 Tablet by mouth in the morning. 28 Tablet 5 5 12:53 PM EST 11/07/19 25 Active Sennosides-Docusat [...] needed for Muscle spasms. 60 Tablet 5 12:53 PM EST 11/07/19 25 Active traMADol HCl 50 MG Oral Tablet (Ultram)Indication s:Lumbar radiculopathy,Prim elif osteoarthritis of both knees Take 1 Tablet by mouth every 8 hours as needed for Pain, Severe. 90 Tablet 5 10:28 AM EST 11/07/19 25 Active traZODone HCl 50 MG Oral Tablet (Desyrel) Take 1 Tablet by mouth at bedtime. 28 Tablet 5 5 12:53 PM EST 11/07/19 25 Active Tresiba FlexTouch 100 UNIT/ML Subcutaneous Solution Pen-injector (Insulin Degludec)Indicatio ns:Type 2 diabetes mellitus with hemoglobin A1c goal of 7.0%-8.0% ([facility]) INJECT 38 UNITS UNDER THE SKIN IN THE EVENING 15 mL 5 5 3:25 PM EST 11/07/19 25 Active Clopidogrel Bisulfate 75 MG Oral Tablet (pLAVix) Take 1 Tablet by mouth in the morning. 28 Tablet 11 5 12:53 PM EST 11/07/19 25 Active Comfort EZ Pen Crestwood 31G X 8 MM (Insulin Pen Needle) use five times daily 500 Each 2 5 11:42 AM EST 11/16/19 25 Active Ciprofloxacin HCl 250 MG Oral Tablet (Cipro)Indications :Acute cystitis without hematuria Take 1 Tablet by mouth in the morning and 1 Tablet before bedtime. Hold Tizanidine while taking Cipro. 10 Tablet 5 4:27 PM EST 11/28/19 25 Active Ciprofloxacin HCl 250 MG Oral Tablet (Cipro)Indications :UTI (urinary tract infection) Take 1 Tablet by mouth in the morning and 1 Tablet before bedtime. Do all this for 5 days. Hold Tizanidine while taking Cipro. 10 Tablet 10/24/19 25 025 Discontin ued(Refil l) Hospital, Clinic, or Other Facility Administered Medication [...] as of this encounter (statuses as of 11/27/2024) Active Problems Problem Noted Date Diagnosed Date [...] vascular, reports upcoming carotid surgery at [facility]. She states she has rx [...] L O2 stable Heparin induced thrombocytopenia (HIT) Atherosclerosis of kashia co ronary artery without angina pectoris 12/31/2021 [...] Medication Regimen: o Beta Faviola Therapy: No beta-faviloa secondary to --unknown o WILI Inhibitor/ARB Therapy: [...] 8:05 AM EDT): Home PT to start [place] filter in place 08/19/2014 History of pulmonary [...] as of this encounter (statuses as of 11/27/2024) Resolved Problems Problem Noted Date Diagnosed Date [...] HTN Protocol #27. Nocturnal hypoxemia 07/22/2011 07/15/20 Overview (07/25/2011): Nocturnal ox 2 LPM 07/20/11 [...] as of this encounter (statuses as of 11/27/2024) Immunizations Name Administration Dates Next Due COVID-19 mRNA, LNP-s, No Pre serve, 2-Dose Series ([employer]) 01/08/2021,12/18/2020 COVID-19, LNP-s, No Preserve , Navarro-sucrose, Ages 12+ (Pfizer) 2022,10/01/2021 COVID-19, MRNA-LNP, PF, 30 M CG/0.3 mL, 12 YRS AND ABOVE, IM (PFIZER-Comirnaty) 07/31/2024,07/26/2023 Pneumococcal Conjugate Vacci ne, 20-valent ([id number]) 03/12/2022 Pneumococcal Polysaccharide PPV23 (Pneumovax) 08/22/2009,06/15/2006 RSV [...] Sign Reading Time Taken Comments Blood Pressure 131/75 11/27/2024 2:44 PM EST Pulse 86 11/27/2024 2:44 PM EST Temperature 36.3 C (97.4 F) 11/27/2024 2:44 PM ES T Respiratory Rate - - Oxygen Saturation 96% 11/27/2024 2:44 PM EST Inhaled Oxygen Concentration - - Weight 122.8 kg (270 lb 11.2 oz) 11/27/2024 2:44 PM EST Height - - Body Mass Index 46.47 11/08/2024 1:25 PM EST documented in this encounter Progress Notes * Galdino Andujar, - 11/27/2024 3:28 PM EST Images from the original note were not included. Subjective Stephanie Camp is a 69 year old female that presents for Acute (uti) and Urinary Tract Infection Symptoms History of Present Illness Stephanie Camp is a 69 year old female with a history of DM type II, CKD stage III, Diastolic CHF, right Hydronephrosis, right ureteral stent, right Transcarotid Artery Revascularization in 08/2023, Chronic Hypoxic Respiratory Failure, HTN, Recurrent DVT, IVC Filter, Hyperlipidemia, GERD, Lumbar Disc Disease, Restless Leg Syndrome, Sleep Apnea with CPAP intolerance, HIT, and Ambulatory Dysfunction that who presents with urinary symptoms. She has been experiencing urinary symptoms, including pressure and frequent urination, for the pasttwo weeks to a month. She can urinate and then shortly after feels the need to go again. No blood in the urine, but there is occasional burning during urination. She was treated with ciprofloxacin for a urinary tract infection about a month ago. She has a history of right ureter stent placement, with the last change in 05/2024. She has a history of heart failure and is currently taking furosemide 60 mg in the morning and 60 mg at night. No swelling in her legs and she notes that her diuretic dose may be too strong since shehas lost weight. She is managing her diabetes with Mounjaro and Tresiba insulin. She reports high blood sugar levels, which she attributes to a possible infection. She experiences constipation, which she attributes to iron supplements. Her bowel movements are greenish, likely due to the iron. She uses Miralax and docusate but finds them ineffective. She takes milk of magnesia and hot tea when needed. She has chronic shortness of breath, which remains unchanged. She has undergone pulmonary testing and continues with her current management. She is not using her CPAP machine due to discomfort when lying down and instead sleeps sitting up. She has lost weight, resulting in her clothes being too large, and notes that her hernia is more prominent. She uses a walker, which is currently broken, and feels tired of being indoors during winter. Patient Active Problem List Diagnosis Dyslipidemia Postsurgical hypothyroidism ELISSA (obstructive sleep apnea) Venous insufficiency Essential hypertension with goal blood pressure less than 140/90 History of pulmonary embolus (PE) Frank filter in place Fibromyalgia Abnormality of gait Restless legs syndrome Gastroesophageal reflux disease with esophagitis Controlled substance agreement signed Chronic heart failure with preserved ejection fraction (HCC) Lumbar radiculopathy 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 3b chronic kidney disease (HCC) Hyperparathyroidism, secondary renal (HCC) Spinal stenosis of lumbar region without neurogenic claudication Heparin induced thrombocytopenia (HIT) ([facility]) Atherosclerosis of kashia coronary artery without angina pectoris Carotid artery stenosis, asymptomatic, right Encounter for long-term current use of medication Type 2 diabetes mellitus with hemoglobin A1c goal of less than 8.0% (HCC) Recurrent deep vein thrombosis (DVT) of both lower extremities (HCC) Chronic hypoxemic respiratory failure (HCC) Chronic kidney disease, stage 3b (HCC) ILD (interstitial lung disease) ([facility]) Moderate episode of recurrent major depressive disorder ([facility]) Primary osteoarthritis of both knees Type 2 diabetes mellitus with stage 3b chronic kidney disease, with long-term current use of insulin ([facility]) Anxiety state Sacroiliitis, not elsewhere classified ([facility]) DM peripheral angiopathy (HCC) Morbid (severe) obesity due to excess calories ([facility]) Iron deficiency Hydronephrosis of right kidney History of infection with vancomycin resistant Enterococcus (VRE) Body mass index (BMI) of 45.0 to 49.9 in adult (HCC) Morbid (severe) obesity with alveolar hypoventilation ([facility]) Drug-induced constipation Past Surgical History: Procedure Laterality Date ARTHROPLASTY KNEE TOTAL Right 07/24/2014 R COLONOSCOPY, DIAGNOSTIC (RECTUM) 02/18/2016 normal, repeat 10 yrs/[facility] COLONOSCOPY, GI REFERRAL OP 01/28/2006 diverticulosis--repeat 10 [...] SACRAL performed by Raj Ahn, at OR [facility] INJECT DX/THER SUBSTANCE INTERLAMINAR LUMBAR/SACRAL W IMAGE GUIDE 08/13/2021 INJECTION SPINE LUMBAR OR SACRAL performed by Raj Ahn DO at OR [facility] KNEE ARTHROSCOPY/DEBRIDEMENT 07/27/[address] PERMANENT GASTROSTOMY TUBE 09/06/2009 GASTROSTOMY WITH CONSTUCTION GASTRIC TUBE performed by AMADOU NUNEZ at [facility] REMOVAL OF THYROID GLAND 06/15/2011 THYROIDECTOMY INCLUDING SUBSTERNAL THYROID CERVICAL APPROACH performed by DANNY HOLDER at OR [facility] REMOVE GALLBLADDER 09/06/2009 CHOLECYSTECTOMY performed by AMADOU NUNEZ at [facility] REPAIR RECURRENT INCISIONAL HERNIA 09/26/1998 REVISION OF COLOSTOMY, SIMPLE 09/26/1997 SACROILIAC JOINT INJECT W/GUIDANCE 07/28/2020 INJECTION SACROILIAC JOINT performed by Raj Ahn DO at OR [facility] SACROILIAC JOINT INJECT W/GUIDANCE 03/03/2022 INJECTION SACROILIAC JOINT performed by Raj Ahn DO at OR [facility] SACROILIAC JOINT INJECT W/GUIDANCE 05/04/2023 INJECTION SACROILIAC JOINT performed by [facility] Ahn DO at OR [facility] SUTURE, LARGE INTESTINE W/COLOSTOMY 09/26/1996 perforation R colon with colostomy TRANSCATH STENT-CAROTID ARTERY, W/EMBOL PROTECTION Right 09/06/2023 Dr. Tang VENA CAVA FILTER/LIGATION/CLIP 08/19/2009 [place] filter placement through the right femoral 08/19/[address] Lerma [address] [facility] Review of patient's allergies indicates: Allergen Reactions Bupropion Other reaction(s): Recurrent falls as per patient Heparin Heparin Induced Thrombocytopenia Jardiance [Empagliflozin] Other (Please comment) 3 yeast infections in 6 weeks after starting Codeine hallucination Farxiga [Dapagliflozin] Other (Please comment) Yeast infection Hay Fever [Pollen] Hydrocodone Neuro complications (Please comment) Morphine And Codeine Hallucinations Tetanus Toxoid Other (Please comment) Passed out Current Medications: Ciprofloxacin HCl 250 MG Oral Tablet (Cipro) Comfort EZ Pen Crestwood 31G X 8 MM (Insulin Pen Needle) Apixaban 2.5 MG Oral Tablet (Eliquis) Aspirin 81 MG Oral Tablet Delayed Release Cholecalciferol 25 MCG (1000 UT) Oral Capsule clonazePAM 0.5 MG Oral Tablet (KlonoPIN) Clopidogrel Bisulfate 75 MG Oral Tablet (pLAVix) Dicyclomine HCl 20 MG Oral Tablet (Bentyl) DULoxetine HCl 60 MG Oral Capsule Delayed Release Particles (Cymbalta) Ferrous Sulfate 325 (65 Fe) MG Oral Tablet (Feosol) Fluticasone Propionate 50 MCG/ACT Nasal Suspension (Flonase) Furosemide 40 MG Oral Tablet (Lasix) Gabapentin 300 MG Oral Capsule (Neurontin) Levothyroxine Sodium 200 MCG Oral Tablet (Levoxyl) Magnesium Oxide -Mg Supplement 400 (240 Mg) MG Oral Tablet (Mag-Ox) NovoLOG FlexPen 100 UNIT/ML Subcutaneous Solution Pen-injector (insulin aspart) Omeprazole 20 MG Oral Capsule Delayed Release (PriLOSEC) Polyethylene Glycol 3350 17 GM/SCOOP Oral Powder (MiraLax) Potassium Chloride Ayleen ER 20 MEQ Oral Tablet Extended Release rOPINIRole HCl 2 MG Oral Tablet (Requip) Rosuvastatin Calcium 5 MG Oral Tablet (Crestor) Sennosides-Docusate Sodium 8.6-50 MG Oral Tablet (Senna-Time S) tiZANidine HCl 4 MG Oral Tablet (Zanaflex) traMADol HCl 50 MG Oral Tablet (Ultram) traZODone HCl 50 MG Oral Tablet (Desyrel) Tresiba FlexTouch 100 UNIT/ML Subcutaneous Solution Pen-injector (Insulin Degludec) Meclizine HCl 12.5 MG Oral Tablet (Antivert) Ondansetron HCl 4 MG Oral Tablet (Zofran) Mounjaro 7.5 MG/0.5ML Subcutaneous Solution Auto-injector (Tirzepatide) OneTouch Verio In Vitro Strip (Glucose Blood) Dexcom G7 Sensor Acetaminophen 500 MG Oral Tablet (Tylenol) DIURETIC TITRATION PLAN CPAP oxygen GAS ONETOUCH DELICA LANCETS 33G MISC Albuterol Sulfate (Proventil) (2.5 MG/3ML) 0.083% inhalation solution 2.5 mg Albuterol Sulfate (Proventil) (5 MG/ML) 0.5% *conc* inhalation solution 2.5 mg Urinary Tract Infection Symptoms Associated symptoms include frequency. Pertinent negatives include no chills, hematuria, nausea or vomiting. Review of Systems Constitutional: Positive for fatigue. Negative for appetite change, chills, fever and unexpected weight change. HENT: Negative for congestion, sore throat and trouble swallowing. Respiratory: Positive for shortness of breath. Negative for cough and wheezing. Cardiovascular: Negative for chest pain, palpitations and leg swelling. Gastrointestinal: Negative for blood in stool, constipation, diarrhea, nausea and vomiting. Lower abdominal pain Genitourinary: Positive for dysuria and frequency. Negative for hematuria. Musculoskeletal: Positive for arthralgias, back pain, gait problem and myalgias. Neurological: Negative for dizziness, syncope and headaches. Psychiatric/Behavioral: Positive for sleep disturbance. Negative for confusion and decreased concentration. Objective Vitals: 11/27/24 1444 Temp: 97.4 F (36.3 C) Pulse: 86 SpO2: 96% BP: 131/75 Physical Exam Physical Exam Vitals and nursing note reviewed. Constitutional: General: She is not in acute distress. Appearance: Normal appearance. She is not toxic-appearing. Cardiovascular: Rate and Rhythm: Normal rate and regular rhythm. Heart sounds: Normal heart sounds. No murmur heard. No gallop. Pulmonary: Effort: Pulmonary effort is normal. Breath sounds: Normal breath sounds. No wheezing, rhonchi or rales. Abdominal: General: Bowel sounds are normal. There is no distension. Palpations: Abdomen is soft. Tenderness: There is no abdominal tenderness. Hernia: A hernia is present. Hernia is present in the ventral area. Musculoskeletal: Right lower leg: No edema. Left lower leg: No edema. Neurological: Mental Status: She is alert. Motor: Weakness present. Gait: Gait abnormal. Psychiatric: Mood and Affect: Mood is depressed. I have reviewed the following results: Results Component Latest Ref [facility] 10/22/2024 WBC 4.00 - 10.80 K/uL 11.33 (H) Neutrophils % 40.0 - 75.0 % 60.3 Lymphocytes % 18.0 - 42.0 % 28.5 Monocytes % 1.0 - 11.0 % 6.0 Eosinophils % 0.0 - 6.0 % 4.0 Basophils % 0.0 - 2.0 % 0.8 Immature Granulocytes % 0.0 - 2.0 % 0.4 Absolute Neutrophils 1.80 - 7.70 K/uL 6.83 Absolute Lymphocytes 1.00 - 4.80 K/ul 3.23 Absolute Monocytes 0.00 - 1.10 K/uL 0.68 Absolute Eosinophils 0.00 - 0.70 K/uL 0.45 Absolute Basophils 0.00 - 0.20 K/uL 0.09 Absolute Immature Granulocytes 0.00 - 0.20 K/uL 0.05 WBC 4.00 - 10.80 K/uL 11.33 (H) RBC 3.85 - 5.15 M/uL 4.31 HGB 12.0 - 15.3 g/dL 12.6 HCT 36.0 - 45.2 % 41.5 MCV 81.5 - 97.5 fL 96.3 MCH 27.0 - 34.0 pg 29.2 MCHC 32.0 - 36.0 g/dL 30.4 RDW 11.5 - 15.5 % 13.7 PLT 140 - 400 K/uL 330 MPV 6.6 - 11.1 fL 10.0 nRBCs <=0 /100 WBCs 0 BUN 6 - 20 mg/dL 26 (H) CREATININE 0.5 - 1.0 mg/dL 1.8 (H) EGFR >=60 mL/min 31 (L) SODIUM 135 - 146 mmol/L 139 POTASSIUM 3.5 - 5.1 mmol/L 4.3 CHLORIDE 98 - 107 mmol/L 97 (L) CO2 22 - 32 mmol/L 31 ANION GAP 7 - 15 mmol/L 11 GLUCOSE 70 - 120 mg/dL 168 (H) CALCIUM 8.4 - 10.2 mg/dL 9.7 Hemoglobin A1C 4.0 - 5.6 % 7.1 (H) Estimated Average Glucose <126 mg/dL 157 (H) TSH 0.27 - 4.20 uIU/mL 0.74 PTH 15 - 65 pg/mL 71 (H) Magnesium 1.5 - 2.6 mg/dL 2.2 Legend: (H) High (L) Low Assessment and Plan Assessment & Plan Urinary Tract Infection (UTI) Recurrent UTI with urinary frequency and pressure for two weeks. No hematuria or fever. Previous Cipro treatment was effective. Discussed risks of antibiotic resistance and potential side effects of Cipro, including gastrointestinal upset and tendonitis. Benefits include symptom relief and infection resolution. - Prescribe Cipro- adjust dose for CKD - Send prescription to [facility] Diabetes Mellitus Diabetes managed with Mounjaro and Tresiba. Reports high blood sugars potentially due to infection.Needs monthly supply of Mounjaro. Discussed importance of infection control in managing blood glucose levels. Benefits of Mounjaro include improved glycemic control and weight loss. - Call [facility] to send monthly supply of Mounjaro Chronic Heart Failure Chronic heart failure with no current edema. On furosemide 60 mg BID. Reports frequent urination possibly due to diuretic dose. Discussed potential need to adjust diuretic dose due to recent weight loss and risk of dehydration and electrolyte imbalance. Benefits include reduced fluid overload and symptom control. - Evaluate furosemide dose considering recent weight loss Constipation Constipation likely secondary to iron supplementation. Current regimen includes Miralax and docusate with limited relief. Discussed reducing iron supplementation to once daily to alleviate constipation. Benefits include improved bowel movements. Risks include potential decrease in iron levels. - Reduce iron supplementation to once daily - Continue docusate and milk of magnesia as needed Chronic Back Pain Managed with gabapentin, duloxetine, and tramadol. Sleep Apnea Not using CPAP due to discomfort. Prefers sleeping sitting up. Discussed importance of CPAP in managing sleep apnea and potential risks of untreated sleep apnea, including cardiovascular complications. Benefits include improved sleep quality and reduced apnea episodes. Hernia Hernia more prominent with recent weight loss. No immediate intervention required. Discussed monitoring for signs of complications such as pain or obstruction. Hypothyroidism Well-managed on levothyroxine. Follow-up - Schedule stent change with Dr. Arriaga - Follow-up appointment on December 20, 2024. UTI (urinary tract infection) (Primary) - Ciprofloxacin HCl 250 MG Oral Tablet (Cipro); Take 1 Tablet by mouth in the morning and 1 Tablet before bedtime. Hold Tizanidine while taking Cipro. Dysuria - URINALYSIS, POINT OF CARE (ENTER/EDIT) - CULTURE, URINE, QUANTITATIVE; Future; Expected date: 11/27/2024 - CULTURE, URINE, QUANTITATIVE Chronic heart failure with preserved ejection fraction (HCC) Chronic hypoxemic respiratory failure (HCC) Atherosclerosis of kashia coronary artery of kashia heart without angina pectoris ELISSA (obstructive sleep apnea) Postsurgical hypothyroidism Recurrent deep vein thrombosis (DVT) of both lower extremities (HCC) Spinal stenosis of lumbar region without neurogenic claudication Type 2 diabetes mellitus with stage 3b chronic kidney disease, with long-term current use of insulin (HCC) Venous insufficiency Iron deficiency Moderate episode of recurrent major depressive disorder ([facility]) Body mass index (BMI) of 45.0 to 49.9 in adult (HCC) Anxiety state Abnormality of gait Chronic kidney disease, stage 3b (HCC) DM peripheral angiopathy (HCC) Dyslipidemia Essential hypertension with goal blood pressure less than 140/90 Fibromyalgia Gastroesophageal reflux disease with esophagitis without hemorrhage 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) History of pulmonary embolus (PE) ILD (interstitial lung disease) ([facility]) Other orders - URINALYSIS, POINT OF CARE Wrap-Up Follow-up: Return in about 23 days (around 12/20/2024), or if symptoms worsen or fail to improve. | Check-out note: Schedule with urology Dr. Arriaga at [facility] for ureter stent change Time: I spent a total of 30-39 minutes (exact time 30 mins) on the date of service in preparation, delivery, and documentation of the care provided to Stephanie Camp excluding any time spent in the performance of separately billed services. Text in this note was generated using an ambient documentation service. I discussed the use of a device to record and summarize our discussion today. All persons present during the encounter consented to its use. documented in this encounter Nursing Notes * Arminda Arellano RT (R) - 11/27/2024 2:44 PM EST Chief Complaint Patient presents with Acute uti Urinary Tract Infection Symptoms Here for UTI symptoms: frequency, urgency, lower abdominal pressure. States she needs a new heavy duty walker with seat and brake attachment ordered sand submitted to [employer]. [facility]. She would like to try to get a Portable oxygen concentrator order submitted if possible. Provided urine sample if PCP needs one today. documented in this encounter Plan of Treatment Upcoming Encounters Date Type Department Care Team (Late st Contact Info) Description 12/19/2024 1:30 PM EDT Office Visit Pulmonary Medicine, [facility] [address] [place] [id number] Jhonny Holley MD [address] [place] [id number] 12/20/2024 11:20 AM EDT Office Visit Family [address] [facility] [address] Galdino Andujar, DO 293 [place] [address] 02/05/2025 1:00 PM EDT Office Visit Family Practice [address], [place] 293 [place] [address] Galdino Andujar, DO 293 [place] [address] 06/13/2025 1:30 PM EDT Imaging Radiology [address] [place] [address] 11/11/2025 1:15 PM EST Imaging Radiology [address] [place] [phone] Pending Results Name Type Priority Associated Diagnoses Date /Time CULTURE, URINE, QUANTITATIVE Lab Routine Dysuria 11/27/2024 3:14 PM EST Scheduled Orders Name Type Priority Associated Diagnoses Orde r Schedule URINALYSIS, POINT OF CARE (ENTER/EDIT) Point of Care Testing Routine Dysuria Ordered: 11/27/2024 CULTURE, URINE, QUANTITATIVE Lab Routine Dysuria Expected: 11/27/2024, Expires: 11/27/2025 Scheduled Procedures Name Priority Associated Diagnoses Date/Ti me COLONOSCOPY FLEXIBLE PROXIMAL DIAGNOSTIC Recall Colon cancer screening Health Maintenance Due Date Last Done Comments Cologuard 2000 Fecal Occult Blood Test 2000 Sigmoidoscopy 2000 CKD PHOS USE SMARTSET 88036 12/26/20240 10/2023, 02/11/2023, 01/07/2022, Additional history exists Adult Wellness Visit 02/13/2025 02/14/2024, 08/05/20 22 GFR 04/21/2025 10/22/2024, 12/2 11/2023, 06/26/2024, Additional history exists HbA1c 04/21/2025 10/22/2024, 09/2023, 03/26/2024, Additional history exists Mammogram 06/12/2025 06/12/2024, 05/27, 04/21/2023, Additional history exists Diabetic Eye Exam 07/06/2025 07/06/2024, , 07/06/2024, Additional history exists Albumin/Creatinine Ratio 10/22/2025 025, 08/05/2023, 11/01/2022, Additional history exists CKD HGB USE SMARTSET 27808 10/22/202510/22, 10/22/2024, 10/11/2024, Additional history exists Depression [...] Diagnosis Comments URINALYSIS, POINT OF CARE CURT 11/27/2024 3:12 PM EST documented in this encounter Results * (ABNORMAL) URINALYSIS, POINT OF CARE (11/27/2024 3:12 PM EST) Color, Urine Other(A) Light Yellow, Yellow 11/27/2024 3:14 PM EST [place] [id number] Clarity, Urine Cloudy(A) Clear 11/27/2024 3:14 PM EST [facility] Glucose, Urine Negative Negative mg/dL 11/27/2024 3:14 PM EST [facility] Bilirubin, Urine Negative Negative 11/27/2024 3:14 PM EST [facility] Ketone, Urine Negative Negative mg/dL 11/27/2024 3:14 PM EST [facility] Specific [place], Urine 1.020 1.003 - 1.030 11/27/2024 3:14 PM EST [place] [address] Blood, Urine Moderate(A) Negative 11/27/2024 3:14 PM EST [facility] pH, Urine 7.0 5.0, 5.5, 6.0, 6.5, 7.0, 7.5 units 11/27/2024 3:14 PM EST [facility] Protein, Urine 30(A) Negative mg/dL 11/27/2024 3:14 PM EST [facility] Urobilinogen, Urine 0.2 0.2, 1.0 mg/dL 11/27/2024 3:14 PM EST [facility] Nitrite, Urine Negative Negative 11/27/2024 3:14 PM EST [facility] Esterase, Urine Large(A) Negative 11/27/2024 3:14 PM EST [facility] Urine 11/27/2024 3:12 PM EST 11/27/2024 3:14 PM EST us Galdino Andujar DO LAB POINT OF CARE TE ST DOCKED DEVICE UNSOLICITED RESULTS Final Result [address] [place] [phone], [facility] documented in this encounter Visit Diagnoses Diagnosis Benign hypertensive heart and kidney disease with diastolic CHF, NYHA class 1 and CKD stage 3 ([facility])- Primary Fibromyalgia Mylagia and myositis, unspecified [...] major depressive disorder ([facility]) Advanced care planning/counseling discussion Other specified counseling ILD (interstitial lung disease) ([facility])- Primary Postinflammatory pulmonary fibrosis Fibromyalgia Mylagia and myositis, unspecified Moderate episode of recurrent major depressive disorder (HCC) Primary osteoarthritis of both knees Primary localized osteoarthrosis, lower leg Chronic hypoxemic respiratory failure (HCC) Chronic respiratory failure 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 3b chronic kidney disease ([facility]) Advanced care planning/counseling discussion- Primary Other specified counseling Atherosclerosis of kashia coronary artery of kashia heart without angina pectoris Carotid artery stenosis, asymptomatic, right Essential hypertension with goal blood pressure less than 140/[address] Other postprocedural status Hypertensive [...] goal of less than 8.0% ([facility]) Fibromyalgia Mylagia and myositis, unspecified Restless legs syndrome Restless legs syndrome (RLS) Chronic kidney disease, stage 3b (HCC) History of pulmonary embolus (PE) Personal history of pulmonary embolism Moderate episode of recurrent major depressive disorder (HCC) Advanced care planning/counseling discussion- Primary Other specified counseling Atherosclerosis of kashia coronary artery of kashia heart without angina pectoris Frank filter in [...] failure and stage 3b chronic kidney disease ([facility])- Primary Spinal stenosis of lumbar region without neurogenic claudication Spinal stenosis, lumbar region, without neurogenic claudication Moderate episode of recurrent major depressive disorder (HCC) Chronic hypoxemic respiratory failure (HCC) Chronic respiratory failure Chronic hypoxemic respiratory failure (HCC)- Primary Chronic respiratory failure Type 2 diabetes mellitus with hemoglobin A1c goal of 7.0%-8.0% ([facility]) Hypertensive heart and kidney disease with chronic [...] Other and unspecified hyperlipidemia DM peripheral angiopathy ([facility]) Type II or unspecified type diabetes mellitus with peripheral circulatory disorders, not stated as uncontrolled H/O transcarotid artery revascularization (TCAR)- Primary 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 3b chronic kidney disease (HCC) Type 2 diabetes mellitus with stage 3b chronic kidney disease, with long-term current use of insulin (HCC) Acute cystitis without hematuria- Primary Acute cystitis Dysuria Chronic heart failure with preserved ejection fraction (HCC) Chronic hypoxemic respiratory failure (HCC) Chronic respiratory failure Atherosclerosis of kashia coronary artery of kashia heart without angina pectoris ELISSA (obstructive sleep apnea) Obstructive sleep apnea (adult) (pediatric) Postsurgical hypothyroidism Recurrent deep vein thrombosis (DVT) of both lower extremities (HCC) Spinal stenosis of lumbar region without neurogenic claudication Spinal stenosis, lumbar region, without neurogenic claudication Type 2 diabetes mellitus with stage 3b chronic kidney disease, with long-term current use of insulin ([facility]) Venous insufficiency Unspecified venous (peripheral) insufficiency Iron deficiency Iron deficiency anemia, unspecified Moderate episode of recurrent major depressive disorder ([facility]) Body mass index (BMI) of 45.0 to 49.9 in adult ([facility]) Anxiety state Anxiety state, unspecified Abnormality of gait Chronic kidney disease, stage 3b ([facility]) DM peripheral angiopathy ([facility]) Type II or unspecified type diabetes mellitus with peripheral circulatory disorders, not stated as uncontrolled Dyslipidemia Other and unspecified hyperlipidemia Essential hypertension with goal blood pressure less than 140/90 Fibromyalgia Mylagia and myositis, unspecified Gastroesophageal reflux disease with esophagitis without hemorrhage 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) 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HIT) History of pulmonary embolus (PE) Personal history of pulmonary embolism ILD (interstitial lung disease) ([facility]) Postinflammatory pulmonary fibrosis Screening mammogram for breast cancer documented in this encounter Advance Directives Documents on File Type Date Recorded Patient Mock Up Builder Expl anation POLST 03/19/2020 4:25 PM POLST [...] (no specific identity) Health Care Power of Junior Account Executive Princess Allen Other - (no specific identity) Health Care Power of Junior Account Executive Care Teams Welfare Administrator Relationship Specialty Start Date End Date Galdino Andujar DO [address] [place] [address] PCP - General Internal Medicine 03/08/24 documented as of this encounter
--- OUTSIDE RECORDS SUMMARY | 2024-12-09 19:24 | External Medical Summary | Summary of Care ---
Author Name Unknown Organization [facility] Address [address] [place] [address] Phone [phone] Care Team Providers Care Commercial Construction Estimator Name Role Phone Galdino Andujar DO Primary Care Provider [phone] Reason for Visit * Reason Onset Date Comments Appointment 11/27/2024 Encounter Details Date Type Department Care Team (Late st Contact Info) Description 11/27/2024 Telephone Family Practice [address] [facility], [place] [address] [place] [address] Galdino Andujar DO 293 [place] [address] Appointment Allergies Active Allergy Reactions Criticality Noted [...] G7 Sensor Use as directed. (From [facility]) 06/01/20 Active OneTouch Verio In Vitro Strip (Glucose Blood)Indications: Hypoglycemia,Type 2 diabetes mellitus with stage 3b chronic kidney disease, with long-term current use of insulin ([facility]) Use up to 4 times a day E11.9 in case of dexcom failure 100 Strip 11 02/02/20 Active Mounjaro 7.5 MG/0.5ML Subcutaneous Solution Auto-injector (Tirzepatide)Indic ations:Type 2 diabetes mellitus with stage 3b chronic kidney disease, with long-term current use of insulin ([facility]) Inject 7.5 mg under the skin once [...] day as needed for Cramping. 180 Tablet 11/08/2024 12:53 PM EST 11/07/19 25 [...] and 2 Sprays before bedtime. 16 g 11/08/2024 12:53 PM EST 11/07/19 25 Active [...] [facility]),Chronic diastolic congestive heart failure (HCC) Take 1 Tablet by mouth in the morning and 1 Tablet before bedtime. 56 Tablet 11/07/19 25 Active NovoLOG FlexPen 100 UNIT/ML Subcutaneous Solution Pen-injector (insulin aspart)Indications :Type 2 diabetes mellitus with hemoglobin A1c goal of 7.0%-8.0% ([facility]) Inject 8 units with breakfast and 6 [...] [facility]),Chronic diastolic congestive heart failure (HCC) Take 1 [...] goal of 7.0%-8.0% ([facility]) INJECT 38 UNITS UNDER THE SKIN IN THE EVENING 15 mL 5 11/14/2024 3:25 PM EST 11/07/19 25 Active Clopidogrel Bisulfate 75 MG Oral Tablet (pLAVix) Take 1 Tablet by mouth in the morning. 28 Tablet 11 11/08/2024 12:53 PM EST 11/07/19 25 Active Comfort EZ [place] 31G X 8 MM (Insulin Pen [...] inhalation solution 2.5 mgIndications:ILD (interstitial lung disease) ([facility]),Chronic respiratory failure with hypoxia ([facility]) 2.5 mg NEBULIZER PRN 10/11/2024 10/11/2025 Active [...] has rx for atorvastatin and plavix to bean picker at pharmacy. 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 Atherosclerosis of [place] co ronary artery without angina pectoris 12/31/2021 [...] 8:05 AM EDT): Home PT to start Alvin filter in place 08/19/2014 History of pulmonary [...] rx evidently given by vascular, has to bean picker rx documented as of this encounter [...] booklet. Other allergic rhinitis 12/31/2003 12/0 09/2017 Overview (07/19/2017): ICD-10 update of inactive term [...] (PFIZER-Comirnaty) 07/31/2024,07/26/2023 Pneumococcal Conjugate Vacci ne, 20-valent ([id number]) 03/12/2022 Pneumococcal Polysaccharide PPV23 (Pneumovax) 08/22/2009,06/15/2006 RSV [...] encounter Miscellaneous Notes * Telephone Encounter - Francisco Temple MED ASSIST - 11/27/2024 3:[address] Arriaga office with [facility] was called and they will call patient with appt date/time. documented in this encounter Plan of Treatment Upcoming Encounters Date Type Department Care Team (Late st Contact Info) Description 12/19/2024 1:30 PM EDT Office Visit Pulmonary Medicine, [facility] [address] [facility] [place] [address] Jhonny Holley MD [address] [place] [address] 12/20/2024 11:20 AM EDT Office Visit Family Practice [address] [place] [address] [address] [place] [address] Galdino Andujar, 293 [place] [address] 02/05/2025 1:00 PM EDT Office Visit Family Practice [address] [place] [address] [address] [place] [address] Galdino Andujar, 293 [place] [address] 06/13/2025 1:30 PM EDT Imaging Radiology [address] 132 [facility] [place] [phone] 11/11/2025 1:15 PM EST Imaging Radiology [address], [place] [address] [place] [address] Scheduled Procedures Name Priority Associated Diagnoses Date/Ti me COLONOSCOPY FLEXIBLE PROXIMAL DIAGNOSTIC Recall Colon cancer screening Health Maintenance Due Date Last Done Comments Cologuard 2000 Fecal Occult Blood Test 2000 Sigmoidoscopy 2000 CKD PHOS USE SMARTSET 58708 12/26/2024 040 10/2023, 02/11/2023, 01/07/2022, Additional history exists Adult Wellness Visit 02/13/2025 02/14/2024, 08/05/20 22 GFR 04/21/2025 10/22/2024, 08/27, 06/26/2024, Additional history exists HbA1c 04/21/2025 10/22/2024, 09/2023, 03/26/2024, Additional history exists Mammogram 06/12/2025 06/12/2024, 05/27, 04/21/2023, Additional history exists Diabetic Eye Exam 07/06/2025 07/06/2024, , 07/06/2024, Additional history exists Albumin/Creatinine Ratio 10/22/2025 025, 08/05/2023, 11/01/2022, Additional history exists CKD HGB USE SMARTSET 32644 10/22/202510/22, 10/22/2024, 10/11/2024, Additional history exists Depression [...] Documents on File Type Date Recorded Patient Casket Assembler Metal Expl anation POLST 03/19/2020 4:25 PM POLST [...] (no specific identity) Health Care Power of Multisensor Intelligence Officer Princess Allen Other - (no specific identity) Health Care Power of Multisensor Intelligence Officer Care Teams Commercial Construction Estimator Relationship Specialty Start Date End Date Galdino Andujar DO [address] [place] [address] PCP - General Internal Medicine 03/08/24 documented as of this encounter
--- OUTSIDE RECORDS SUMMARY | 2024-12-09 19:24 | External Medical Summary | Summary of Care ---
Author Name Unknown Organization [facility] Address [address] [place] [address] Phone [phone] Care Team Providers Care Refrigeration Service Technician Name Role Phone Galdino Andujar DO Primary Care Provider [phone] Reason for Visit * Reason Onset Date Comments Test Results 11/29/202411/29 Encounter Details Date Type Department Care Team (Late st Contact Info) Description 11/29/2024 Telephone Family Practice 65 [facility] [place] 293 [place] [address] Galdino Andujar DO [address] [place] [address] Test Results (11/29) Allergies Active Allergy Reactions Criticality Noted Date [...] as of this encounter (statuses as of 11/30/2024) Medications ONETOUCH DELICA LANCETS 33G MISC Check [...] G7 Sensor Use as directed. (From [facility]) 06/01/20 Active OneTouch Verio In Vitro Strip [...] 7.0%-8.0% ([facility]) Take 1 Tablet by mouth in [...] [facility]),Chronic diastolic congestive heart failure (HCC) Take 1 Tablet by mouth in the morning and 1 Tablet before bedtime. 56 Tablet 11/07/19 25 Active NovoLOG FlexPen 100 UNIT/ML Subcutaneous Solution Pen-injector (insulin aspart)Indications :Type 2 diabetes mellitus with hemoglobin A1c goal of 7.0%-8.0% ([facility]) Inject 8 units with breakfast and [...] [facility]),Chronic diastolic congestive heart failure (HCC) Take [...] of 7.0%-8.0% ([facility]) INJECT 38 UNITS UNDER THE SKIN IN THE EVENING 15 mL 5 11/14/2024 3:25 PM EST 11/07/19 25 Active Clopidogrel Bisulfate 75 MG Oral Tablet (pLAVix) Take 1 Tablet by mouth in the morning. 28 Tablet 11 11/08/2024 12:53 PM EST 11/07/19 25 Active Comfort EZ Pen [place] 31G X 8 MM (Insulin Pen Needle) [...] inhalation solution 2.5 mgIndications:ILD (interstitial lung disease) ([facility]),Chronic respiratory failure with hypoxia ([facility]) 2.5 mg NEBULIZER PRN 10/11/2024 10/11/2025 Active Albuterol Sulfate (Proventil) (5 MG/ML) 0.5% *conc* inhalation solution 2.5 mgIndications:ILD (interstitial lung disease) (HCC),Chronic respiratory failure with hypoxia (HCC) 2.5 mg NEBULIZER PRN 10/11/2024 10/11/2025 Active documented as of this encounter (statuses as of 11/30/2024) Active Problems Problem Noted Date Diagnosed Date [...] by vascular, reports upcoming carotid surgery at [facility]. She states she has [...] as of this encounter (statuses as of 11/30/2024) Resolved Problems Problem Noted Date Diagnosed Date [...] as of this encounter (statuses as of 11/30/2024) Immunizations Name Administration Dates Next Due COVID-19 mRNA, LNP-s, No Pre serve, 2-Dose Series ([employer]) 01/08/2021,12/18/2020 COVID-19, LNP-s, No Preserve , Navarro-sucrose, Ages 12+ (Pfizer) 2022,10/01/2021 COVID-19, MRNA-LNP, PF, 30 M CG/0.3 mL, 12 YRS AND ABOVE, IM (PFIZER-Comirnat) 07/31/2024,07/26/2023 Pneumococcal Conjugate Vacci ne, 20-valent ([id number]) 03/12/2022 Pneumococcal Polysaccharide PPV23 (Pneumovax) 08/22/2009,06/15/2006 RSV [...] Telephone Encounter - Galdino Andujar DO - 11/30/2024 8:35 AM EST Stent change on 12/14/2024 at [facility] Noted * Telephone Encounter - Flaca Springer LPN - 11/29/2024 3:52 PM EST Call placed to patient and relayed information from Dr. Andujar. Pt acknowledged understanding. Willstop antibiotic. Pt states she is scheduled for Stent change on 11/16/24. * Telephone Encounter - Flaca Springer LPN - 11/29/2024 3:49 PM EST ----- Message from Galdino Andujar DO sent at 11/28/2024 10:47 PM EST ----- Urine culture is negative. Make sure patient is scheduled with Urology at [facility] for ureter stent change. documented in this encounter Plan of Treatment Upcoming Encounters Date Type Department Care Team (Late st Contact Info) Description 12/19/2024 1:30 PM EDT Office Visit Pulmonary Medicine, [facility] 132 [facility] [place] [phone] Jhonny Holley MD [address] [facility] [place] [address] 12/20/2024 11:20 AM EDT Office Visit [facility] 65 [facility] 293 [facility] [place] [address] Galdino Andujar, DO 293 [facility] [place] [address] 02/05/2025 1:00 PM EDT Office Visit [facility] 65 [facility] 293 [facility] [place] [address] Galdino Andujar, DO 293 [facility] [place] [address] 06/13/2025 1:30 PM EDT Imaging Radiology [address] [place] [address] 11/11/2025 1:15 PM EST Imaging Radiology [address] [place] [address] Scheduled Procedures Name Priority Associated Diagnoses Date/Ti me COLONOSCOPY FLEXIBLE PROXIMAL DIAGNOSTIC Recall Colon cancer screening Health Maintenance Due Date Last Done Comments Cologuard 2000 Fecal Occult Blood Test 2000 Sigmoidoscopy 2000 CKD PHOS USE SMARTSET 93814 12/26/20240 10/2023, 02/11/2023, 01/07/2022, Additional history exists Adult Wellness Visit 02/13/2025 02/14/2024, 08/05/20 22 GFR 04/21/2025 10/22/2024, 12/2 11/2023, 06/26/2024, Additional history exists HbA1c 04/21/2025 10/22/2024, 09/2023, 03/26/2024, Additional history exists Mammogram 06/12/2025 06/12/2024, 05/27, 04/21/2023, Additional history exists Diabetic Eye Exam 07/06/2025 07/06/2024, , 07/06/2024, Additional history exists Albumin/Creatinine Ratio 10/22/2025 025, 08/05/2023, 11/01/2022, Additional history exists CKD HGB USE SMARTSET 48668 10/22/202510/22, 10/22/2024, 10/11/2024, Additional history exists Depression [...] Documents on File Type Date Recorded Patient Rv Detailer Expl anation POLST 03/19/2020 4:25 PM POLST [...] (no specific identity) Health Care Power of Partner Integration Planner Princess Staplesfany Other - (no specific identity) Health Care Power of Partner Integration Planner Care Teams Refrigeration Service Technician Relationship Specialty Start Date End Date Galdino Andujar DO [address] [place] [address] PCP - General Internal Medicine 03/08/24 documented as of this encounter
--- OUTSIDE RECORDS SUMMARY | 2024-12-09 19:24 | External Medical Summary ---
Author Name Unknown Address Unknown Organization K01:[facility] - [address] [place] [address] Laboratory Report Ordering Provider Test Date Status JAG SHULTZ 11/27/2024 15:14:15 Final Observation Date Value Abnormality Reference (Units) Status Bacteria identified in Specimen by Culture 11/27/2024 15:14:15 No significant growth Final Test: Culture, Urine, Quanti tative
Specimen Source: Urine, Clean Catch
Specimen Type: Urine
Specimen Date: 11/27/2024 1514
Result Date: 11/28/2024 1631
Result Status: Final result
Resulting Lab: [facility]
[address]
[place] [address]

CULTURE

No significant growth

null Performing Location [facility] - [address] [place] [address]
--- OUTSIDE RECORDS SUMMARY | 2024-12-09 19:25 | External Medical Summary | Summary of Care ---
Author Name Unknown Organization [facility] Address [address] [place] [address] Phone [phone] Care Team Providers Care Tape Keller Operator Name Role Phone PratimaGaldino DO Primary Care Provider [phone] Reason for Visit * Reason Onset Date Comments Test Results 11/13/2024 Unexpected or In determinate Result Encounter Details Date Type Department Care Team (Late st Contact Info) Description 11/13/2024 Telephone Laboratory, [place] [address] [place] [address] Jhonny Holley MD [address] [place] [address] Test Results (Unexpected or Indeterminate ... Allergies Active Allergy Reactions Criticality Noted Date [...] as of this encounter (statuses as of 11/13/2024) Medications ONETOUCH DELICA LANCETS 33G MISC Check [...] Dexcom G7 Sensor Use as directed. (From [facility]) 06/01/20 Active OneTouch Verio In Vitro [...] of insulin ([facility]) Inject 7.5 mg under the skin once a week. 2 mL 11 06/26/20 24 Active Ondansetron HCl 4 MG Oral Tablet (Zofran)Indication s:Dizziness and giddiness Take 1 Tablet (4 mg) by mouth every 6 hours as needed for Nausea. 90 Tablet 6 07/04/20 24 Active Meclizine HCl 12.5 MG Oral Tablet (Antivert)Indicati ons:Vertigo Take 1 Tablet by mouth 3 times a day as needed for Dizziness. 30 Tablet 1 07/31/20 24 Active Comfort EZ Pen [place] 31G X 8 MM (Insulin Pen Needle) use five times daily 500 Each 3 09/25/20 24 Active Aspirin 81 MG Oral Tablet Delayed ReleaseIndications :Type 2 diabetes mellitus with hemoglobin A1c goal of 7.0%-8.0% ([facility]) Take 1 Tablet by mouth in the morning. 28 Tablet 11 11/07/19 25 Active Cholecalciferol 25 MCG (1000 UT) Oral CapsuleIndications :Vitamin D deficiency Take 1 Capsule by mouth in the morning. 28 Capsule 11/07/19 25 Active clonazePAM 0.5 MG Oral Tablet (KlonoPIN)Indicati ons:Restless legs syndrome,Anxiety state Take 1 Tablet by mouth in the morning and 1 Tablet at noon and 1 Tablet before bedtime. 84 Tablet 11/07/19 25 Active Dicyclomine HCl 20 MG [...] 1 Capsule before bedtime. 60 Capsule 5 11/08/2024 12:53 PM EST 11/07/19 25 Active Levothyroxine Sodium 200 MCG Oral Tablet (Levoxyl)Indicatio ns:Postsurgical hypothyroidism Take 1 Tablet by mouth daily first thing in the morning. 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 56 Tablet 11/07/19 25 Active NovoLOG FlexPen 100 UNIT/ML Subcutaneous Solution Pen-injector (insulin aspart)Indications :Type 2 diabetes mellitus with hemoglobin A1c goal of 7.0%-8.0% ([facility]) Inject 8 units with breakfast [...] [facility]),Chronic diastolic congestive heart failure (HCC) [...] as needed for Pain, Severe. 90 Tablet 11/07/19 25 Active traZODone HCl 50 MG Oral Tablet (Desyrel) Take 1 Tablet by mouth at bedtime. 28 Tablet 5 11/08/2024 12:53 PM EST 11/07/19 25 Active Tresiba FlexTouch 100 UNIT/ML Subcutaneous Solution Pen-injector (Insulin Degludec)Indicatio ns:Type 2 diabetes mellitus with hemoglobin A1c goal of 7.0%-8.0% ([facility]) INJECT 38 UNITS UNDER THE SKIN IN THE EVENING 15 mL 5 11/07/19 25 Active Clopidogrel Bisulfate 75 MG Oral Tablet (pLAVix) Take 1 Tablet by mouth in the morning. 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 She states she has rx for atorvastatin and plavix to clam picker at pharmacy. Type 2 diabetes mellitus [...] Plan (08/11/2022 4:32 PM EST): Followed by pulm Stable today Moderate episode [...] 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 Atherosclerosis of [place] co ronary artery without angina pectoris 12/31/2021 [...] rx evidently given by vascular, has to clam picker rx documented as of this encounter (statuses as of 11/13/2024) Resolved Problems Problem Noted Date Diagnosed Date Resolved Date Body mass index (BMI) of 40. 0 [...] as of this encounter (statuses as of 11/13/2024) Immunizations Name Administration Dates Next Due COVID-19 mRNA, LNP-s, No Pre serve, 2-Dose Series ([email or web address]) 01/08/2021,12/18/2020 COVID-19, LNP-s, No Preserve , Navarro-sucrose, Ages 12+ ([email or web address]) 2022,10/01/2021 COVID-19, MRNA-LNP, PF, 30 M CG/0.3 mL, 12 YRS AND ABOVE, IM (PFIZER-Comirnaty) 07/31/2024,07/26/2023 Pneumococcal Conjugate Vacci ne, 20-valent ([id number]) 03/12/2022 Pneumococcal Polysaccharide PPV23 (Pneumovax) 08/22/2009,06/15/2006 RSV [...] No 10/22/2024 Does the household have a [facility] source of income? (Household - for ages [...] encounter Miscellaneous Notes * Telephone Encounter - Bishop Parks OSA - 11/13/2024 9:27 AM EST Marilou- The radiologist discovered an unexpected or indeterminate finding on Stephanie Camp ([id number]) andasks that you review the following report. Study Type: CT CHEST WO CONTRAST Date of Study: 11/08/2024 IMPRESSION 1. Subpleural reticulations with mild interval progression most likely representing pulmonary fibrosis. Mosaic attenuation with air trapping representing a component small airway disease. 2. New 6 millimeter juxtapleural nodule right lower lobe, nonspecific and probably representing component of interstitial thickening. A follow-up evaluation is recommended in 3-6 months. 3. Mildly enlarged mediastinal lymph nodes, nonspecific and most likely reactive. Attention to follow-up. 4. Additional findings and details as above. Please respond to this encounter to acknowledge receipt of this message and take responsibility to ensure this report is reviewed. Thank you, Bishop Parks, ELISSA Client Service Rep [facility] documented in this encounter Plan of Treatment Upcoming Encounters Date Type Department Care Team (Late st Contact Info) Description 12/19/2024 1:30 PM EDT Office Visit Pulmonary Medicine, Health [facility] [address] [facility] [place] [address] Jhonny Holley MD [address] [place] [address] 12/20/2024 11:20 AM EDT Office Visit Family [address] [facility] [place] [id number] Galdino Andujar, [address] [place] [address] 02/05/2025 1:00 PM EDT Office Visit [address] [facility] [place] [phone] Galdino Andujar, [address] [place] [address] 06/13/2025 1:30 PM EDT Imaging Radiology [address], [employer] [address] [place] [address] Scheduled Procedures Name Priority Associated Diagnoses Date/Ti me COLONOSCOPY FLEXIBLE PROXIMAL DIAGNOSTIC Recall Colon cancer screening Health Maintenance Due Date Last Done Comments Cologuard 2000 Fecal Occult Blood Test 2000 Sigmoidoscopy 2000 CKD PHOS USE SMARTSET 60476 12/26/2024 04/0 10/2023, 02/11/2023, 01/07/2022, Additional history exists Adult Wellness Visit 02/13/2025 02/14/2024, 08/05/20 22 GFR 04/21/2025 10/22/2024, 08/27, 06/26/2024, Additional history exists HbA1c 04/21/2025 10/22/2024, 09/2023, 03/26/2024, Additional history exists Mammogram 06/12/2025 06/12/2024, 05/27, 04/21/2023, Additional history exists Diabetic Eye Exam 07/06/2025 07/06/2024, , 07/06/2024, Additional history exists Albumin/Creatinine Ratio 10/22/2025 025, 08/05/2023, 11/01/2022, Additional history exists CKD HGB USE SMARTSET 63861 10/22/202510/22, 10/22/2024, 10/11/2024, Additional history exists Depression [...] Documents on File Type Date Recorded Patient Lap Welder Expl anation POLST 03/19/2020 4:25 PM POLST [...] (no specific identity) Health Care Power of Accountant Auditor Princess Allen Other - (no specific identity) Health Care Power of Accountant Auditor Care Teams Tape Keller Operator Relationship Specialty Start Date End Date Galdino Andujar DO [address] [place] [place] [address] PCP - General Internal Medicine 03/08/24 documented as of this encounter
--- OUTSIDE RECORDS SUMMARY | 2024-12-09 19:25 | External Medical Summary | Summary of Care ---
Author Name Unknown Organization [facility] Address [address] [place] [address] Phone [phone] Care Team Providers Care Human Resources Consultant Name Role Phone Lexii Andujar DO Primary Care Provider Reason for Visit * Reason Onset Date Comments Medication Refill 11/15/2024 Encounter Details Date Type Department Care Team (Late st Contact Info) Description 11/15/2024 Refill Family Practice [address], [place] [address] [place] [phone] Lexii Andujar DO [address] [place], [place] [phone] Allergies Active Allergy Reactions Criticality Noted Date [...] as of this encounter (statuses as of 11/16/2024) Medications ONETOUCH DELICA LANCETS 33G MISC Check blood sugars 3-4 times daily 180 Each 5 08/01/20 18 Active oxygen GASIndications:ELISSA (obstructive sleep apnea) Use 4 L/min(Oxygen) as directed continuous. 11/28/19 20 Active CPAP every night at bedtime. Active Acetaminophen 500 MG Oral Tablet (Tylenol) Take 2 Tablets by mouth in the morning and 2 Tablets at noon and 2 Tablets before bedtime. 100 Tablet 03/18/20 Active DIURETIC TITRATION PLAN If no improvement on day 3, contact heart failure managing provider. 1 Each 03/18/20 Active Dexcom G7 Sensor Use as directed. (From [facility]) 06/01/20 Active OneTouch Verio In Vitro Strip [...] current use of insulin ([facility]) Inject 7.5 mg under the skin once [...] goal of 7.0%-8.0% ([facility]) Take 1 Tablet by mouth in [...] day as needed for Cramping. 180 Tablet 5 12:53 PM EST 11/07/19 25 [...] 1 Tablet before bedtime. 56 Tablet 5 12:53 PM EST 11/07/19 25 [...] class 1 and CKD stage 3 ([facility]),Chronic diastolic congestive heart failure (HCC) Take 1 Tablet by mouth in the morning and 1 Tablet before bedtime. 56 Tablet 11/07/19 25 Active NovoLOG FlexPen 100 UNIT/ML Subcutaneous Solution Pen-injector (insulin aspart)Indications :Type 2 diabetes mellitus with hemoglobin A1c goal of 7.0%-8.0% ([facility]) Inject 8 units with breakfast and 6 units lunch and 10 units with dinner + sliding scale 1 units for every 30 units BG > 150. 150 mL 3 5 12:53 PM EST 11/07/19 25 [...] class 1 and CKD stage 3 ([facility]),Chronic diastolic congestive heart failure (HCC) Take 1 Tablet by mouth in the morning and 1 Tablet before bedtime. 56 Tablet 5 12:53 PM EST 11/07/19 25 Active rOPINIRole HCl 2 MG Oral Tablet (Requip)Indication s:Restless legs syndrome Take 1 Tablet by mouth at bedtime. 28 Tablet 5 12:53 PM EST 11/07/19 25 Active Rosuvastatin Calcium 5 MG Oral Tablet (Crestor)Indicatio ns:Dyslipidemia Take 1 Tablet by mouth in the morning. 28 Tablet 5 12:53 PM EST 11/07/19 [...] hemoglobin A1c goal of 7.0%-8.0% ([facility]) INJECT 38 UNITS UNDER THE SKIN IN THE EVENING 15 mL 5 11/07/19 25 Active Clopidogrel Bisulfate 75 MG Oral Tablet (pLAVix) Take 1 Tablet by mouth in the morning. 28 Tablet 11 5 12:53 PM EST 11/07/19 25 Active Comfort EZ Pen [place] 31G X 8 MM (Insulin Pen Needle) use five times daily 500 Each 2 11/16/19 25 Active Comfort EZ Pen [place] 31G X 8 MM (Insulin Pen Needle) use five times daily 500 Each 3 09/25/20 24 025 Discontin ued(Refil l) Hospital, Clinic, or [...] as of this encounter (statuses as of 11/16/2024) Active Problems Problem Noted Date Diagnosed Date [...] 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 Atherosclerosis of [place] co ronary artery without angina pectoris 12/31/2021 [...] as of this encounter (statuses as of 11/16/2024) Resolved Problems Problem Noted Date Diagnosed Date [...] as of this encounter (statuses as of 11/16/2024) Immunizations Name Administration Dates Next Due COVID-19 mRNA, LNP-s, No Pre serve, 2-Dose Series ([employer]) 01/08/2021,12/18/2020 COVID-19, LNP-s, No Preserve , Navarro-sucrose, Ages 12+ (Pfizer) 2022,10/01/2021 COVID-19, MRNA-LNP, PF, 30 M CG/0.3 mL, 12 YRS AND ABOVE, IM (PFIZER-Comirnaty) 07/31/2024,07/26/2023 Pneumococcal Conjugate Vacci ne, 20-valent ([id number]) 03/12/2022 Pneumococcal Polysaccharide PPV23 (Pneumovax) 08/22/2009,06/15/2006 RSV [...] Notes * Telephone Encounter - Ivy Bucio [facility] - 11/16/2024 8:58 AM ESTSigned Prescriptions: Disp Refills Comfort EZ Pen [place] 31G X 8 MM (Insulin*500 Ea*2 Sig: use five times dailyAuthorizing Provider: LEXII ANDUJAR User: IVY BUCIO * Telephone Encounter - Abi Azul, piece cutter - 11/15/2024 8:48 AM EST Please reroute Rx to [facility]. Pending Prescriptions: Disp Refills Comfort EZ Pen [place] 31G X 8 MM (Insuli*500 Ea*2 Sig: use five times daily Last Visit: 10/22/2024 (in office), 04/23/2024 (telemedicine) 12/20/2024 If no future appointments scheduled, and last appointment is greater than a year ago, please schedule patient for a follow-up appointment Last date the medication was ordered: 09/25/2024 Patient Phone Numbers Labs: Lab Results Component Value Date/Time CREAT 1.8 (H) 10/22/2024 02:54 PM CREAT 1.69 09/07/2023 12:00 AM CREAT 2.0 (H) 05/06/2020 08:46 AM POTASSIUM 4.3 10/22/2024 02:54 PM POTASSIUM 3.9 07/25/2023 12:00 AM POTASSIUM 4.0 05/06/2020 08:46 AM TSH 0.74 10/22/2024 02:54 PM TSH 5.35 (H) 05/06/2020 08:46 AM LDL 66 10/11/2024 07:05 AM LDL 60 11/07/2023 04:43 PM LDL UNINTERPRETABLE RESULT 03/14/2019 01:54 PM LDL 126 03/14/2019 01:54 PM ALT 11 09/17/2024 02:20 PM ALT 27 05/06/2020 08:46 AM HGBA1C 7.1 (H) 10/22/2024 02:54 PM HGBA1C 7.5 (H) 09/20/2023 12:00 AM HGBA1C 7.3 (H) 01/23/2020 11:11 AM documented in this encounter Plan of Treatment Upcoming Encounters Date Type Department Care Team (Late st Contact Info) Description 12/19/2024 1:30 PM EDT Office Visit Pulmonary Medicine, [facility] [address] [facility] [place] [address] Jhonny Holley MD [address] [place] [address] 12/20/2024 11:20 AM EDT Office Visit Family Practice [address] [place] [address] 293 [place] [address] Lexii Andujar, 293 [facility] [place] [address] 02/05/2025 1:00 PM EDT Office Visit Family Practice 65 [facility] 293 [place] [address] Lexii Andujar, 293 [facility], [place] [address] 06/13/2025 1:30 PM EDT Imaging Radiology [address] [place] [phone] 11/11/2025 1:15 PM EST Imaging Radiology [address] [place] [phone] Scheduled Procedures Name Priority Associated Diagnoses Date/Ti me COLONOSCOPY FLEXIBLE PROXIMAL DIAGNOSTIC Recall Colon cancer screening Health Maintenance Due Date Last Done Comments Cologuard 2000 Fecal Occult Blood Test 2000 Sigmoidoscopy 2000 CKD PHOS USE SMARTSET 42006 12/26/2024 04/0 10/2023, 02/11/2023, 01/07/2022, Additional history exists Adult Wellness Visit 02/13/2025 02/14/2024, 08/05/20 22 GFR 04/21/2025 10/22/2024, 08/27, 06/26/2024, Additional history exists HbA1c 04/21/2025 10/22/2024, 1009/2023, 03/26/2024, Additional history exists Mammogram 06/12/2025 06/12/2024, 05/27, 04/21/2023, Additional history exists Diabetic Eye Exam 07/06/2025 07/06/2024, , 07/06/2024, Additional history exists Albumin/Creatinine Ratio 10/22/2025 025, 08/05/2023, 11/01/2022, Additional history exists CKD HGB USE SMARTSET 74108 10/22/202510/22, 10/22/2024, 10/11/2024, Additional history exists Depression [...] Documents on File Type Date Recorded Patient Electroencephalographic Technician Expl anation POLST 03/19/2020 4:25 PM [...] (no specific identity) Health Care Power of Drug Purchaser Princess Thrashery Other - (no specific identity) Health Care Power of Drug Purchaser Care Teams Human Resources Consultant Relationship Specialty Start Date End Date Lexii Andujar DO [address] [place] [id number] PCP - General Internal Medicine 03/08/24 documented as of this encounter
--- OUTSIDE RECORDS SUMMARY | 2024-12-09 19:25 | External Medical Summary | Summary of Care ---
Author Name Unknown Organization [facility] Address [address] [place] [address] Phone [phone] Care Team Providers Care Clinical Field Specialist Name Role Phone Pratima Galdino Neal DO Primary Care Provider [phone] Reason for Referral * Precert (Within 10 days (routine)) - Authorized Specialty Diagnoses / Procedures Referred By Contac t Referred To Contact Radiology Diagnoses ILD (interstitial lung disease) (HCC) Lung nodule Procedures CT CHEST WO CONTRAST Jhonny Holley MD [address] [place] [address] Phone: tel: fax: Referral ID Status Reason Start Date Expiration Date V isits Requested Visits Authorized [id number] Authorized 05/13/2025 [id number] Encounter Details Date Type Department Care Team (Late st Contact Info) Description 11/13/2024 Telephone Pulmonary Medicine, [facility] [address] [facility] [place] [address] Jhonny Holley MD [address] [place] [address] Allergies Active Allergy Reactions Criticality Noted Date [...] as of this encounter (statuses as of 11/14/2024) Medications ONETOUCH DELICA LANCETS 33G MISC Check [...] Dexcom G7 Sensor Use as directed. ([facility]) 06/01/20 Active OneTouch Verio In Vitro Strip [...] 1 07/31/20 24 Active Comfort EZ Pen [place] 31G X 8 MM (Insulin Pen Needle) use five times daily 500 Each 3 09/25/20 24 Active Aspirin 81 MG Oral Tablet Delayed ReleaseIndications :Type 2 diabetes mellitus with hemoglobin A1c goal of 7.0%-8.0% ([facility]) Take 1 Tablet by mouth in [...] ajor depressive disorder, recurrent, moderate ([facility]) Take 1 Capsule by mouth in the [...] 1 Tablet before bedtime. 56 Tablet 5 11/08/2024 12:53 PM EST 11/07/19 [...] before bedtime. 100 Tablet 11/07/19 25 Active tiZANidine HCl 4 MG [...] 7.0%-8.0% ([facility]) INJECT 38 UNITS UNDER THE SKIN IN THE EVENING 15 mL 11/07/19 25 Active Clopidogrel Bisulfate 75 MG Oral Tablet (pLAVix) Take 1 Tablet by mouth in the morning. 28 Tablet 11 11/08/2024 12:53 PM EST 11/07/19 25 Active Hospital, Clinic, or Other Facility Administered Medication Ordered Dose Route Frequency Start Date End Date Status Albuterol Sulfate (Proventil) (2.5 MG/3ML) 0.083% inhalation solution 2.5 mgIndications:ILD (interstitial lung disease) ([facility]),Chronic respiratory failure with hypoxia (HCC) 2.5 mg NEBULIZER PRN 10/11/2024 10/11/2025 Active Albuterol Sulfate (Proventil) (5 MG/ML) 0.5% *conc* inhalation solution 2.5 mgIndications:ILD (interstitial lung disease) (HCC),Chronic respiratory failure with hypoxia (HCC) 2.5 mg NEBULIZER PRN 10/11/2024 10/11/2025 Active documented as of this encounter (statuses as of 11/14/2024) Active Problems Problem Noted Date Diagnosed Date [...] vascular, reports upcoming carotid surgery at [facility]. She states she has rx for atorvastatin and plavix to pickle water pump operator at pharmacy. 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 Atherosclerosis of [place] co ronary artery without angina pectoris 12/31/2021 [...] evidently given by vascular, has to pickle water pump operator rx documented as of this encounter (statuses as of 11/14/2024) Resolved Problems Problem Noted Date Diagnosed Date [...] as of this encounter (statuses as of 11/14/2024) Immunizations Name Administration Dates Next Due COVID-19 mRNA, LNP-s, No Pre serve, 2-Dose Series (Pfizer) 01/08/2021,12/18/2020 COVID-19, LNP-s, No Preserve , Navarro-sucrose, Ages 12+ (Pfizer) 2022,10/01/2021 COVID-19, MRNA-LNP, PF, 30 M CG/0.3 mL, 12 YRS AND ABOVE, IM (PFIZER-Comirnaty) 07/31/2024,07/26/2023 Pneumococcal Conjugate Vacci ne, 20-valent ([id number]) 03/12/2022 Pneumococcal Polysaccharide PPV23 (Pneumovax) 08/22/2009,06/15/2006 RSV [...] encounter Miscellaneous Notes * Telephone Encounter - Jhonny Holley MD - 11/13/2024 5:[address] chest was reviewed. Compared with historical data. Subpleural I LD, significant resolution of mosaic attenuation noted on prone views. 6 mm subpleural nodule of unknown significance. Six-month follow-up HRCT recommended and ordered. Please notify patient that CT chest has been reviewed and a six-month follow-up CT scan chest has been recommended. No additional recommendations. documented in this encounter Plan of Treatment Upcoming Encounters Date Type Department Care Team (Late st Contact Info) Description 12/19/2024 1:30 PM EDT Office Visit Pulmonary Medicine, [facility] [address] [facility] [place] [address] [facility] [address] 12/20/2024 11:20 AM EDT Office Visit Family Practice 65 [facility] 293 [place] [address] Galdino Andujar DO [address] [place] [address] [place] [address] 02/05/2025 1:00 PM EDT Office Visit Family Practice 65 [facility] 293 [place] [address] Galdino Andujar, DO [address] [place], [place] [address] 06/13/2025 1:30 PM EDT Imaging Radiology [facility] [place] [address] [place] [phone] Scheduled Orders Name Type Priority Associated Diagnoses Orde r Schedule CT CHEST WO CONTRAST Medical Imaging Routine ILD (interstitial lung disease) (HCC) Lung nodule Expected: 05/13/2025, Expires: 12/11/2025 Scheduled Procedures Name Priority Associated Diagnoses Date/Ti me COLONOSCOPY FLEXIBLE PROXIMAL DIAGNOSTIC Recall Colon cancer screening Health Maintenance Due Date Last Done Comments Cologuard 2000 Fecal Occult Blood Test 2000 Sigmoidoscopy 2000 CKD PHOS USE SMARTSET 58376 12/26/2024 040 10/2023, 02/11/2023, 01/07/2022, Additional history exists Adult Wellness Visit 02/13/2025 02/14/2024, 08/05/20 22 GFR 04/21/2025 10/22/2024, 1211/2023, 06/26/2024, Additional history exists HbA1c 04/21/2025 10/22/2024, 1009/2023, 03/26/2024, Additional history exists Mammogram 06/12/2025 06/12/2024, 05/27, 04/21/2023, Additional history exists Diabetic Eye Exam 07/06/2025 07/06/2024, , 07/06/2024, Additional history exists Albumin/Creatinine Ratio 10/22/2025 025, 08/05/2023, 11/01/2022, Additional history exists CKD HGB USE SMARTSET 69509 10/22/202510/22, 10/22/2024, 10/11/2024, Additional history exists Depression [...] discussion- Primary Other specified counseling Atherosclerosis of [place] coronary artery of [place] heart without angina pectoris Carotid artery stenosis, asymptomatic, right Essential hypertension with goal blood pressure less than 140/[address] Other postprocedural status Hypertensive [...] discussion- Primary Other specified counseling Atherosclerosis of [place] coronary artery of [place] heart without angina pectoris [place] filter in place Other postprocedural status Hypertensive [...] on File Type Date Recorded Patient Hand Cooper Helper Expl anation POLST 03/19/2020 4:25 PM [...] (no specific identity) Health Care Power of Instructor Of Spanish Princess Allen Other - (no specific identity) Health Care Power of Instructor Of Spanish Care Teams Clinical Field Specialist Relationship Specialty Start Date End Date Galdino Andujar DO [address] [place] [address] PCP - General Internal Medicine 03/08/24 documented as of this encounter
--- OUTSIDE RECORDS SUMMARY | 2024-12-09 19:25 | External Medical Summary | Summary of Care ---
Author Name Unknown Organization [facility] Address [address] [place] [address] Phone [phone] Care Team Providers Care Director Of Science Name Role Phone Pratima Galdino Neal DO Primary Care Provider [phone] Reason for Referral * Precert (Within 10 days (routine)) - Authorized Specialty Diagnoses / Procedures Referred By Contac t Referred To Contact Radiology Diagnoses ILD (interstitial lung disease) (HCC) Lung nodule Procedures CT CHEST WO CONTRAST Jhonny Holley MD [address] [address] Phone: tel: fax: Referral ID Status Reason Start Date Expiration Date V isits Requested Visits Authorized [id number] Authorized 05/13/2025 999 999 Reason for Visit * Reason Onset Date Comments Test Results 11/13/2024 CT Chest Encounter Details Date Type Department Care Team (Late st Contact Info) Description 11/13/2024 Telephone Pulmonary Medicine, [facility] [address] [place] [address] Jhonny Holley MD [address] [id number] Test Results (CT Chest) Allergies Active Allergy [...] Dexcom G7 Sensor Use as directed. (From [facility]) 06/01/20 Active OneTouch Verio In Vitro Strip (Glucose Blood)Indications: Hypoglycemia,Type 2 diabetes mellitus with stage 3b chronic kidney disease, with long-term current use of insulin (HCC) Use up to 4 times a day E11.9 in case of dexcom failure 100 Strip 02/02/20 24 Active Mounjaro 7.5 MG/0.5ML Subcutaneous [...] 1 07/31/20 24 Active Comfort EZ Pen [place] 31G X 8 MM (Insulin Pen Needle) [...] goal of 7.0%-8.0% ([facility]) INJECT 38 UNITS UNDER THE [...] by vascular, reports upcoming carotid surgery at [facility]. She states she has rx for atorvastatin and plavix to chicken picker at pharmacy. 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 Atherosclerosis of [place] co ronary artery without angina pectoris 12/31/2021 [...] rx evidently given by vascular, has to chicken picker rx documented as of this encounter [...] mRNA, LNP-s, No Pre serve, 2-Dose Series ([employer]) 01/08/2021,12/18/2020 COVID-19, LNP-s, No Preserve , Navarro-sucrose, Ages 12+ (Pfizer) 2022,10/01/2021 COVID-19, MRNA-LNP, PF, 30 M CG/0.3 mL, 12 YRS AND ABOVE, IM ([facility]) 07/31/2024,07/26/2023 Pneumococcal Conjugate Vacci ne, 20-valent ([id number]) 03/12/2022 Pneumococcal Polysaccharide PPV23 (Pneumovax) 08/22/2009,06/15/2006 RSV [...] Telephone Encounter - Sade Lozada LPN - 11/14/2024 12:51 PM EST Please contact pt to r/s repeat CT Chest in 6 months. * Telephone Encounter - Jhonny Holley MD [...] 1:30 PM EDT Office Visit Pulmonary Medicine, [facility] [address] [facility] [place] [address] Jhonny Holley MD [address] [place] [address] 12/20/2024 11:20 AM EDT Office Visit Family Practice [address] [facility] 293 [facility] [place] [address] Galdino Andujar, DO 293 [facility], [place] [address] 02/05/2025 1:00 PM EDT Office Visit [facility] [address] [facility] 293 [facility], [place] [phone] Galdino Andujar, 293 [facility], [place] [address] 06/13/2025 1:30 PM EDT Imaging Radiology [address], [place] [address] [place] [phone] Scheduled Orders Name Type Priority Associated Diagnoses [...] 2000 Sigmoidoscopy 2000 CKD PHOS USE SMARTSET 58480 12/26/2024 040 10/2023, 02/11/2023, 01/07/2022, Additional history exists Adult Wellness Visit 02/13/2025 02/14/2024, 08/05/20 22 GFR 04/21/2025 10/22/2024, 08/27, 06/26/2024, Additional history exists HbA1c 04/21/2025 10/22/2024, 1009/2023, 03/26/2024, Additional history exists Mammogram 06/12/2025 06/12/2024, 05/27, 04/21/2023, Additional history exists Diabetic Eye Exam 07/06/2025 07/06/2024, , 07/06/2024, Additional history exists Albumin/Creatinine Ratio 10/22/2025 025, 08/05/2023, 11/01/2022, Additional history exists CKD HGB USE SMARTSET 53199 10/22/202510/22, 10/22/2024, 10/11/2024, Additional history exists Depression [...] recurrent major depressive disorder ([facility]) Advanced care planning/counseling discussion Other specified counseling ILD (interstitial lung disease) ([facility])- Primary Postinflammatory pulmonary fibrosis Fibromyalgia Mylagia and myositis, unspecified Moderate episode of recurrent major depressive disorder ([facility]) Primary osteoarthritis of both knees Primary localized osteoarthrosis, lower leg Chronic hypoxemic respiratory failure ([facility]) Chronic respiratory failure 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 3b chronic kidney disease ([facility]) Advanced care planning/counseling discussion- Primary Other specified counseling Atherosclerosis of [place] coronary artery of [place] heart without angina pectoris Carotid artery stenosis, asymptomatic, right Essential hypertension with goal blood pressure less than 140/[address] Other postprocedural status 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 3b chronic kidney disease ([facility]) Recurrent deep vein thrombosis (DVT) of both lower extremities ([facility]) Chronic hypoxemic respiratory failure ([facility]) Chronic respiratory failure ELISSA (obstructive sleep apnea) Obstructive sleep apnea (adult) (pediatric) Type 2 diabetes mellitus with hemoglobin A1c goal of less than 8.0% ([facility]) Fibromyalgia Mylagia and myositis, unspecified Restless legs syndrome Restless legs syndrome (RLS) Chronic kidney disease, stage 3b ([facility]) History of pulmonary embolus (PE) Personal history of pulmonary embolism Moderate episode of recurrent major depressive disorder ([facility]) Advanced care planning/counseling discussion- Primary Other specified counseling Atherosclerosis of [place] coronary artery of [place] heart without angina pectoris Poplar filter in place Other postprocedural status 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 3b chronic kidney disease ([facility]) Recurrent deep vein thrombosis (DVT) of both lower extremities (HCC) Chronic hypoxemic respiratory failure (HCC) Chronic respiratory failure Gastroesophageal reflux disease with esophagitis without hemorrhage Sacroiliitis, not elsewhere classified ([facility]) Sacroiliitis, not elsewhere classified 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 3b chronic kidney disease, with long-term current use of insulin ([facility]) History of pulmonary embolus (PE) Personal history of pulmonary embolism Moderate episode of recurrent major depressive disorder ([facility]) Spinal stenosis of lumbar region [...] Documents on File Type Date Recorded Patient Hair Clipper Power Expl anation POLST 03/19/2020 4:25 PM POLST [...] (no specific identity) Health Care Power of Deputy Sheriff Civil Division Princess Other - (no specific identity) Health Care Power of Deputy Sheriff Civil Division Care Teams Director Of Science Relationship Specialty Start Date End Date Galdino Andujar DO [address] [place] [address] PCP - General Internal Medicine 03/08/24 documented as of this encounter
--- OUTSIDE RECORDS SUMMARY | 2024-12-09 19:25 | External Medical Summary | Summary of Care ---
Author Name Unknown Organization [facility] Address [address] [place] [address] Phone [phone] Care Team Providers Care Heat Reader Name Role Phone PratimaGaldino DO Primary Care Provider [phone] Reason for Visit * Reason Onset Date Comments Test Results 11/13/2024 Unexpected or In determinate Result Encounter Details Date Type Department Care Team (Late st Contact Info) Description 11/13/2024 Telephone Laboratory, [facility] [address] [place] [address] Jhonny Holley MD [address] [place] [address] Test Results (Unexpected or Indeterminate [...] Dexcom G7 Sensor Use as directed. (From [facility]) 06/01/20 Active OneTouch Verio In Vitro Strip [...] 1 07/31/20 24 Active Comfort EZ Pen [place] 31G X 8 MM (Insulin Pen Needle) use five times daily 500 Each 3 09/25/20 24 Active Aspirin 81 MG Oral Tablet Delayed ReleaseIndications :Type 2 diabetes mellitus with hemoglobin A1c goal of 7.0%-8.0% ([facility]) Take 1 Tablet by mouth in the [...] mRNA, LNP-s, No Pre serve, 2-Dose Series ([employer]) 01/08/2021,12/18/2020 COVID-19, LNP-s, No Preserve , Navarro-sucrose, Ages 12+ ([employer]) 2022,10/01/2021 COVID-19, MRNA-LNP, PF, 30 M CG/0.3 mL, 12 YRS AND ABOVE, IM (PFIZER-Comirnaty) 07/31/2024,07/26/2023 Pneumococcal Conjugate Vacci ne, 20-valent ([id number]) 03/12/2022 Pneumococcal Polysaccharide PPV23 (Pneumovax) 08/22/2009,06/15/2006 RSV [...] No 10/22/2024 Does the household have a [facility] source of income? (Household - for ages [...] unexpected or indeterminate finding on Stephanie Camp ([phone]) andasks that you review the following report. [...] you, Bishop Parks, ELISSA Client Service Rep [facility] documented in this encounter Plan of Treatment Upcoming Encounters Date Type Department Care Team (Late st Contact Info) Description 12/19/2024 1:30 PM EDT Office Visit Pulmonary Medicine, [facility] 132 [facility] [place] [address] Jhonny Holley MD [address] [place] [address] 12/20/2024 11:20 AM EDT Office Visit Family [address] [facility] [place] [phone] Galdino Andujar, 293 [place] [address] 02/05/2025 1:00 PM EDT Office Visit [address] [facility] [place] [phone] Galdino Andujar, 293 [place] [address] 06/13/2025 1:30 PM EDT Imaging Radiology [address], [place] [address] [place] [address] Scheduled Procedures Name Priority Associated Diagnoses Date/Ti me COLONOSCOPY FLEXIBLE PROXIMAL DIAGNOSTIC Recall Colon cancer screening Health Maintenance Due Date Last Done Comments Cologuard 2000 Fecal Occult Blood Test 2000 Sigmoidoscopy 2000 CKD PHOS USE SMARTSET 51453 12/26/2024 04/0 10/2023, 02/11/2023, 01/07/2022, Additional history exists Adult Wellness Visit 02/13/2025 02/14/2024, 08/05/20 22 GFR 04/21/2025 10/22/2024, 08/27, 06/26/2024, Additional history exists HbA1c 04/21/2025 10/22/2024, 09/2023, 03/26/2024, Additional history exists Mammogram 06/12/2025 06/12/2024, 05/27, 04/21/2023, Additional history exists Diabetic Eye Exam 07/06/2025 07/06/2024, , 07/06/2024, Additional history exists Albumin/Creatinine Ratio 10/22/2025 025, 08/05/2023, 11/01/2022, Additional history exists CKD HGB USE SMARTSET 17717 10/22/202510/22, 10/22/2024, 10/11/2024, Additional history exists Depression [...] Documents on File Type Date Recorded Patient Substation Superintendent Expl anation POLST 03/19/2020 4:25 PM POLST [...] (no specific identity) Health Care Power of Rotary Driller Helper Princess Allen Other - (no specific identity) Health Care Power of Rotary Driller Helper Care Teams Heat Reader Relationship Specialty Start Date End Date Galdino Andujar DO [address] [place] [place] [address] PCP - General Internal Medicine 03/08/24 documented as of this encounter
--- OUTSIDE RECORDS SUMMARY | 2024-12-09 19:25 | External Medical Summary | Summary of Care ---
Author Name Unknown Organization [facility] Address [address] [place] [address] Phone [phone] Care Team Providers Care Chemist Biological Name Role Phone ZiaandrewsGaldino DO Primary Care Provider Reason for Visit * Reason Comments Pulmonary Function Test PFT with broncho dilator Oxygen Assessment Walk with titration Encounter Details Date Type Department Care Team (Latest Contact Info) Description 11/08/2024 1:00 PM EST PulmDiagnostic Pulmonary Function Lab, [facility] [address] [facility] [place] [address] [place], [address] [facility] [place] [address] Cough variant asthma*; Eosinophilic asthma; ILD (interstitial lung disease) ([facility]); Chronic respiratory failure with hypoxia ([facility]) Allergies Active Allergy Reactions Criticality Noted Date [...] as of this encounter (statuses as of 11/08/2024) Medications DEM[facility]ANCETS [facility] Check blood sugars 3-4 times daily [...] Dexcom G7 Sensor Use as directed. (From [facility]) 06/01/20 Active OneTouch Verio In Vitro [...] 1 07/31/20 24 Active Comfort EZ Pen [place] 31G X 8 MM (Insulin Pen Needle) [...] as of this encounter (statuses as of 11/08/2024) Active Problems Problem Noted Date Diagnosed Date [...] has rx for atorvastatin and plavix to sweet pickled fruit maker at pharmacy. Type 2 diabetes mellitus [...] Plan (08/11/2022 4:32 PM EST): Followed by pulailyn Stable today Moderate episode [...] induced thrombocytopenia (HIT) 2 Atherosclerosis of [place] co ronary artery without angina pectoris 12/31/2021 [...] 8:05 AM EDT): Home PT to start [place] filter in place 08/19/2014 History of pulmonary [...] rx evidently given by vascular, has to sweet pickled fruit maker rx documented as of this encounter (statuses as of 11/08/2024) Resolved Problems Problem Noted Date Diagnosed Date [...] as of this encounter (statuses as of 11/08/2024) Immunizations Name Administration Dates Next Due COVID-19 mRNA, LNP-s, No Pre serve, 2-Dose Series ([employer]) 01/08/2021,12/18/2020 COVID-19, LNP-s, No Preserve , Navarro-sucrose, Ages 12+ ([employer]) 2022,10/01/2021 COVID-19, MRNA-LNP, PF, 30 M CG/0.3 mL, 12 YRS AND ABOVE, IM (PFIZER-Comirnaty) 07/31/2024,07/26/2023 Pneumococcal Conjugate Vacci ne, 20-valent ([id number]) 03/12/2022 Pneumococcal Polysaccharide PPV23 (Pneumovax) 08/22/2009,06/15/2006 RSV [...] Sign Reading Time Taken Comments Blood Pressure 122/74 11/08/2024 1:25 PM EST Pulse 86 11/08/2024 1:25 PM EST Temperature - - Respiratory Rate 18 11/08/2024 1:25 PM EST Oxygen Saturation 93% 11/08/2024 1:2 5 PM EST On 2 liters at rest Inhaled Oxygen Concentration - - Weight 122.9 kg (271 lb) 11/08/2024 1:2 5 PM EST Height 162.6 cm (5' 4") 11/08/2024 1:25 PM EST Body Mass Index 46.52 11/08/2024 1:25 PM EST documented in this encounter Nursing Notes * Elida Claire RRT - 11/08/2024 1:47 PM EST Stephanie Camp was identified by name, Date of : (1955), and . Vitals were obtained for testing. Body mass index is 46.52 kg/m. Pt has a 1 ppd for 15 years smoking history and quit 27.2 years ago. 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 Pt wears 4 liters oxygen continuously. Pt ordered CPAP but does not wear. Spirometry, DLCO, RAW, and TGV performed. A slow volume nebulizer treatment of 0.5ml of albuterol in 3 ml of NSS was given. The proper method of use, as well as anticipated side effects, of this svn are discussed and demonstrated to the patient. Patient demonstrates adequate delivery. FENO 11 PPB Administrations This Visit Albuterol Sulfate (Proventil) (5 MG/ML) 0.5% *conc* inhalation solution 2.5 mg Admin Date 11/08/2024 Action Given Dose 2.5 mg Route Nebulizer Documented By Elida Claire RRT TITRATION WALK SPO2 85% on room air at rest. Placed on 2 liters. Exercise oximetry performed x 2 minutes. Pt ambulated 240 feet/ 73 meters. Lowest SPO2 on 2 liters was 87%. Pt placed on 4 liters. Exercise oximetry performed on 4 liters x 3 minutes. Pt ambulated 270 feet/ 82 meters. Lowest SPO2 on 4 liters was 91%. documented in this encounter Plan of Treatment Upcoming Encounters Date Type Department Care Team (Late st Contact Info) Description 12/19/2024 1:30 PM EDT Office Visit Pulmonary Medicine, [facility] [address] [place] [place] [address] Jhonny Holley MD [address] [place] [address] 12/20/2024 11:20 AM EDT Office Visit Family Practice [address] [place] [address] 293 [place] [phone] Galdino Andujar, DO 293 [place] [address] 02/05/2025 1:00 PM EDT Office Visit Family Practice [address] [place] [address] [address] [place] [phone] Galdino Andujar, DO [address] [place] [address] 06/13/2025 1:30 PM EDT Imaging Radiology [address], [place] [address] [facility] [place] [phone] Pending Results Name Type Priority Associated Diagnoses Date /Time NITRIC OXIDE GAS DETERMINATION Procedures Routine Cough variant asthma Eosinophilic asthma 11/08/2024 1:02 PM EST SPIROMETRY B/A BRONCHODILATOR Procedures Routine ILD (interstitial lung disease) ([facility]) Chronic respiratory failure with hypoxia ([facility]) 11/08/2024 1:02 PM EST LUNG VOLUMES (PLETHYSMOGRAPHY) Procedures Routine ILD (interstitial lung disease) (HCC) Chronic respiratory failure with hypoxia (HCC) 11/08/2024 1:02 PM EST DIFFUSION CAPACITY (DLCO) Procedures Routine ILD (interstitial lung disease) (HCC) Chronic respiratory failure with hypoxia (HCC) 11/08/2024 1:02 PM EST Scheduled Procedures Name Priority Associated Diagnoses Date/Ti me COLONOSCOPY FLEXIBLE PROXIMAL DIAGNOSTIC Recall Colon cancer screening Health Maintenance Due Date Last Done Comments Cologuard 2000 Fecal Occult Blood Test 2000 Sigmoidoscopy 2000 CKD PHOS USE SMARTSET 27006 12/26/2024 04/0 10/2023, 02/11/2023, 01/07/2022, Additional history exists Adult Wellness Visit 02/13/2025 02/14/2024, 08/05/20 22 GFR 04/21/2025 10/22/2024, 122 11/2023, 06/26/2024, Additional history exists HbA1c 04/21/2025 10/22/2024, 09/2023, 03/26/2024, Additional history exists Mammogram 06/12/2025 06/12/2024, 05/27, 04/21/2023, Additional history exists Diabetic Eye Exam 07/06/2025 07/06/2024, , 07/06/2024, Additional history exists Albumin/Creatinine Ratio 10/22/2025 025, 08/05/2023, 11/01/2022, Additional history exists CKD HGB USE SMARTSET 97679 10/22/202510/22, 10/22/2024, 10/11/2024, Additional history exists Depression [...] Procedure Name Priority Date/Time Associated Diagnosis Comments DIFFUSION CAPACITY (DLCO) Routine 2024 1:02 PM EST ILD (interstitial lung disease) (HCC) Chronic respiratory failure with hypoxia (HCC) LUNG VOLUMES (PLETHYSMOGRAPHY) Routine 11/08/2024 1:02 PM EST ILD (interstitial lung disease) (HCC) Chronic respiratory failure with hypoxia (HCC) NITRIC OXIDE GAS DETERMINATION Routine 11/08/2024 1:02 PM EST Cough variant asthma Eosinophilic asthma SPIROMETRY B/A BRONCHODILATOR Routine 11/08/2024 1:02 PM EST ILD (interstitial lung disease) (HCC) Chronic respiratory failure with hypoxia (HCC) documented in this encounter Visit Diagnoses Diagnosis [...] discussion- Primary Other specified counseling Atherosclerosis of [place] coronary artery of [place] heart without angina pectoris Carotid artery stenosis, [...] discussion- Primary Other specified counseling Atherosclerosis of [place] coronary artery of [place] heart without angina pectoris Frank filter in [...] with long-term current use of insulin (HCC) Cough variant asthma- Primary Eosinophilic asthma Pulmonary eosinophilia ILD (interstitial lung disease) ([facility]) Postinflammatory pulmonary fibrosis Chronic respiratory failure with hypoxia (HCC) Chronic respiratory failure Screening mammogram for breast cancer documented in this encounter Administered Medications Active Administered Medications - up to 3 most recent administrations Medication Order MAR Action Action Date Dose Rate Site Albuterol Sulfate (Proventil) (5 MG/ML) 0.5% *conc* inhalation solution 2.5 mg 2.5 mg, Nebulizer, PRN Other, for Pulmonary Function Testing, Starting on Tue10/11/24 at 0757, Until Tue10/11/25 at 0756, For 365 days, *[place] with 0.9% saline IF neededIndications:ILD (interstitial lung disease) ([facility]),Chronic respiratory failure with hypoxia ([facility]) Given 11/08/2024 1:47 PM EST 2.5 mg documented in this encounter Advance Directives Documents on File Type Date Recorded Patient Instructional Technology Coordinator Expl anation POLST 03/19/2020 4:25 PM [...] (no specific identity) Health Care Power of Statistical Analyst Princess Allen Other - (no specific identity) Health Care Power of Statistical Analyst Care Teams Chemist Biological Relationship Specialty Start Date End Date Galdino Andujar DO [address] [place] [address] PCP - General Internal Medicine 03/08/24 documented as of this encounter
--- OUTSIDE RECORDS SUMMARY | 2024-12-09 19:26 | External Medical Summary | Summary of Care ---
Author Name Unknown Organization [facility] Address [address] [place] [address] Phone [phone] Care Team Providers Care Workers Compensation Claims Specialist Name Role Phone PratimaGaldino DO Primary Care Provider [phone] Encounter Details Date Type Department Care Team (Late st Contact Info) Description 11/05/2024 Orders Only Outcomes Research Department [address] [place] [address] Mariam Mandujano CHRA [employer] Other*[id number] Allergies Active Allergy Reactions Criticality Noted Date [...] as of this encounter (statuses as of 11/05/2024) Medications ONETOUCH DELICA LANCETS 33G MISC Check blood sugars 3-4 times daily 180 Each 5 08/01/20 18 Active oxygen GASIndications:ELISSA (obstructive sleep apnea) Use 3 L/min(Oxygen) as directed continuous. 11/28/19 20 Active CPAP every night at bedtime. Active Acetaminophen 500 MG Oral Tablet (Tylenol) Take 2 Tablets by mouth in the morning and 2 Tablets at noon and 2 Tablets before bedtime. 100 Tablet 03/18/20 Active DIURETIC TITRATION PLAN If no improvement on day 3, contact heart failure managing provider. 1 Each 03/18/20 Active NovoLOG FlexPen 100 UNIT/ML Subcutaneous Solution Pen-injector (insulin aspart)Indications :Type 2 diabetes mellitus with hemoglobin A1c goal of 7.0%-8.0% (HCC) Inject 8 units with breakfast and 6 units lunch and 10 units with dinner + sliding scale 1 units for every 30 units BG > 150. 150 mL 3 05/16/20 Active Dexcom G7 Sensor Use as directed. (From [facility]) 06/01/20 Active Plavix 75 MG Oral Tablet Take 1 Tablet by mouth in the morning. 07/11/20 Active Aspirin 81 MG Oral Tablet Delayed Release Take 1 Tablet by mouth in the morning. Active Ferrous Sulfate 325 (65 Fe) MG Oral Tablet (Feosol)Indication s:Anemia Take 1 Tablet by mouth in the morning and 1 Tablet before bedtime. 10/14/19 24 Active OneTouch Verio In Vitro Strip (Glucose Blood)Indications: Hypoglycemia,Type 2 diabetes mellitus with stage 3b chronic kidney disease, with long-term current use of insulin ([facility]) Use up to 4 times a day E11.9 in case of dexcom failure 100 Strip 11 02/02/20 Active Cholecalciferol 25 MCG (1000 UT) Oral Capsule Take 1 capsule by mouth once daily in the morning 30 Capsule 5 06/12/20 24 Active Dicyclomine HCl 20 MG Oral Tablet (Bentyl)Indication s:Irritable bowel syndrome, unspecified type Take 1 Tablet by mouth 4 times a day as needed for Cramping. 180 Tablet 3 06/19/20 24 Active Mounjaro 7.5 MG/0.5ML Subcutaneous Solution Pen-injector (Tirzepatide)Indic ations:Type 2 diabetes mellitus with stage 3b chronic kidney disease, with long-term current use of insulin ([facility]) Inject 7.5 mg under the skin once a week. 2 mL 11 06/26/20 24 Active Ondansetron HCl 4 MG Oral Tablet (Zofran)Indication s:Dizziness and giddiness Take 1 Tablet (4 mg) by mouth every 6 hours as needed for Nausea. 90 Tablet 6 07/04/20 24 Active Levothyroxine Sodium 200 MCG Oral Tablet (Levoxyl)Indicatio ns:Postsurgical hypothyroidism TAKE 1 TABLET BY MOUTH ONCE DAILY IN THE MORNING 90 Tablet 1 07/29/20 24 Active Meclizine HCl 12.5 MG Oral Tablet (Antivert)Indicati ons:Vertigo Take 1 Tablet by mouth 3 times a day as needed for Dizziness. 30 Tablet 1 07/31/20 24 Active Gabapentin 300 MG Oral Capsule (Neurontin)Indicat ions:Lumbar radiculopathy,Fibr omyalgia Take 1 Capsule by mouth in the morning and 1 Capsule before bedtime. 60 Capsule 5 07/31/20 24 Active Tresiba FlexTouch 100 UNIT/ML Subcutaneous Solution Pen-injector (Insulin Degludec)Indicatio ns:Type 2 diabetes mellitus with hemoglobin A1c goal of 7.0%-8.0% ([facility]) INJECT 38 UNITS UNDER THE SKIN IN THE EVENING 15 mL 5 08/20/20 24 Active Additional Information Patient taking differently: 41 Units Subcutaneous DAILY(1900), Per MTD, Reported on 10/29/2024 rOPINIRole HCl 2 MG Oral Tablet (Requip)Indication s:Restless legs syndrome TAKE 1 TABLET BY MOUTH AT BEDTIME 30 Tablet 5 08/20/20 24 Active Magnesium Oxide 400 MG Oral TabletIndications: Benign hypertensive heart and kidney disease with diastolic CHF, NYHA class 1 and CKD stage 3 (HCC),Chronic diastolic congestive heart failure (HCC) TAKE 1 TABLET BY MOUTH IN THE MORNING AND AT BEDTIME 60 Tablet 5 08/20/20 24 Active Furosemide 40 MG Oral Tablet (Lasix)Indications :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 3b chronic kidney disease (HCC) Take 1.5 Tablets by mouth in the morning and 1.5 Tablets before bedtime. Morning and noon. 30 Tablet 2 09/17/20 24 Active Rosuvastatin Calcium 5 MG Oral Tablet (Crestor)Indicatio ns:Dyslipidemia Take 1 Tablet by mouth in the morning. 30 Tablet 5 09/17/20 24 Active Comfort EZ Pen [place] 31G X 8 MM (Insulin Pen Needle) use five times daily 500 Each 3 09/25/20 24 Active Fluticasone Propionate 50 MCG/ACT Nasal Suspension (Flonase) Administer 2 Sprays into nostril in the morning and 2 Sprays before bedtime. 16 g 3 10/11/19 25 Active Eliquis 2.5 MG Oral Tablet (Apixaban) TAKE 1 TABLET BY MOUTH IN THE MORNING AND AT BEDTIME 60 Tablet 11 10/16/19 25 Active clonazePAM 0.5 MG Oral Tablet (KlonoPIN)Indicati ons:Restless legs syndrome,Anxiety state TAKE 1 TABLET BY MOUTH THREE TIMES A DAY 84 Tablet 10/16/19 25 Active Senna-Time S 8.6-50 MG Oral Tablet (senna-docusate) TAKE 1 TABLET BY MOUTH IN THE MORNING AND AT BEDTIME 60 Tablet 6 10/16/19 25 Active Omeprazole 20 MG Oral Capsule Delayed Release (PriLOSEC)Indicati ons:Gastroesophage al reflux disease with esophagitis without hemorrhage TAKE 1 CAPSULE BY MOUTH ONCE DAILY IN THE MORNING 30 Capsule 10/16/19 25 Active DULoxetine HCl 60 MG Oral Capsule Delayed Release Particles (Cymbalta)Indicati ons:Fibromyalgia,M ajor depressive disorder, recurrent, moderate (HCC) TAKE 1 CAPSULE BY MOUTH ONCE DAILY IN THE MORNING 30 Capsule 10/16/19 25 Active Potassium Chloride Ayleen ER 20 MEQ Oral Tablet Extended ReleaseIndications :Benign hypertensive heart and kidney disease with diastolic CHF, NYHA class 1 and CKD stage 3 (HCC),Chronic diastolic congestive heart failure (HCC) TAKE 1 TABLET BY MOUTH IN THE MORNING AND AT BEDTIME 60 Tablet 10/16/19 25 Active traZODone HCl 50 MG Oral Tablet (Desyrel) TAKE 1 TABLET BY MOUTH AT BEDTIME 30 Tablet 10/16/19 25 Active Polyethylene Glycol 3350 17 GM/SCOOP Oral Powder (MiraLax)Indicatio ns:Drug-induced constipation Take 17 g by mouth in the morning. Dissolve one heaping tablespoon in 8 ounces of water or juice.. 510 g 3 10/22/19 25 Active tiZANidine HCl 4 MG Oral Tablet (Zanaflex)Indicati ons:Spinal stenosis of lumbar region without neurogenic claudication Take 1 Tablet by mouth every 6 hours as needed for Muscle spasms. 60 Tablet 10/22/19 25 Active traMADol HCl 50 MG Oral Tablet (Ultram)Indication s:Primary osteoarthritis of both knees,Lumbar radiculopathy Take 1 Tablet by mouth every 8 hours as needed for Pain, Severe. 90 Tablet 01/27/20 25 Active Hospital, Clinic, or Other Facility [...] as of this encounter (statuses as of 11/05/2024) Active Problems Problem Noted Date Diagnosed Date [...] for atorvastatin and plavix to pick up driver at pharmacy. 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 Atherosclerosis of lime co ronary artery without angina pectoris 12/31/2021 [...] 8:05 AM EDT): Home PT to start Colby filter in place 08/19/2014 History of pulmonary [...] given by vascular, has to pick up driver rx documented as of this encounter (statuses as of 11/05/2024) Resolved Problems Problem Noted Date Diagnosed Date [...] has booklet. Other allergic rhinitis 12/31/2003 12/09/2017 Overview (07/19/2017): ICD-10 update of inactive term [...] as of this encounter (statuses as of 11/05/2024) Immunizations Name Administration Dates Next Due COVID-19 mRNA, LNP-s, No Pre serve, 2-Dose Series (Sparkfly) 01/08/2021,12/18/2020 COVID-19, LNP-s, No Preserve , Navarro-sucrose, Ages 12+ (Pfizer) 2022,10/01/2021 COVID-19, MRNA-LNP, PF, 30 M CG/0.3 mL, 12 YRS AND ABOVE, IM (PFIZER-Comirnat) 07/31/2024,07/26/2023 Pneumococcal Conjugate Vacci ne, 20-valent (Avgealu33) 03/12/2022 Pneumococcal Polysaccharide PPV23 (Pneumovax) 08/22/2009,06/15/2006 RSV [...] Care Team (Late st Contact Info) Description 11/08/2024 1:00 PM EST PulmDiagnostic Pulmonary Function Lab, [facility] [address] [facility] [place] [address] [place], [address] [facility] [place] [address] 11/08/2024 2:30 PM EST Imaging Radiology [address] [facility] [place] [phone] 12/19/2024 1:30 PM EDT Office Visit Pulmonary Medicine, [facility] [address] [facility] [place] [address] Jhonny Holley MD [address] [place] [address] 12/20/2024 11:20 AM EDT Office Visit Family Practice [address] [place] [address] [facility] [phone] Galdino Andujar [facility] [address] [facility] [address] 02/05/2025 1:00 PM EDT Office Visit Family Practice [address] [facility] [phone] Galdino Andujar, DO [address] [place], [place] [address] 06/13/2025 1:30 PM EDT Imaging Radiology [facility] [address] [facility] [place] [address] [place] [phone] Scheduled Orders Name Type Priority Associated Diagnoses Orde r Schedule MYCODE SUBSEQUENT ADULT Lab Routine [employer] Other*[id number] Every 6 Months for 2 Occurrences starting 11/05/2024 until 11/25/2025 Scheduled Procedures Name Priority Associated Diagnoses Date/Ti me COLONOSCOPY FLEXIBLE PROXIMAL DIAGNOSTIC Recall Colon cancer screening Health Maintenance Due Date Last Done Comments Cologuard 2000 Fecal Occult Blood Test 2000 Sigmoidoscopy 2000 CKD PHOS USE SMARTSET 83418 12/26/2024 04/0 10/2023, 02/11/2023, 01/07/2022, Additional history exists Adult Wellness Visit 02/13/2025 02/14/2024, 08/05/20 22 GFR 04/21/2025 10/22/2024, 12/11/2023, 06/26/2024, Additional history exists HbA1c 04/21/2025 10/22/2024, 1009/2023, 03/26/2024, Additional history exists Mammogram 06/12/2025 06/12/2024, 05/27, 04/21/2023, Additional history exists Diabetic Eye Exam 07/06/2025 07/06/2024, , 07/06/2024, Additional history exists Albumin/Creatinine Ratio 10/22/2025 025, 08/05/2023, 11/01/2022, Additional history exists CKD HGB USE SMARTSET 35714 10/22/202510/22, 10/22/2024, 10/11/2024, Additional history exists Depression [...] and CKD stage 3 ([facility])- Primary Fibromyalgia Mylagia and myositis, unspecified Primary [...] recurrent major depressive disorder ([facility]) Advanced care planning/counseling discussion Other specified counseling ILD (interstitial lung disease) ([facility])- Primary Postinflammatory pulmonary fibrosis Fibromyalgia Mylagia and myositis, unspecified Moderate episode of recurrent major depressive disorder (HCC) Primary osteoarthritis of both knees Primary localized osteoarthrosis, lower leg Chronic hypoxemic respiratory failure (HCC) Chronic respiratory failure 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 3b chronic kidney disease (HCC) Advanced care planning/counseling discussion- Primary Other specified counseling Atherosclerosis of lime coronary artery of lime heart without angina pectoris Carotid artery stenosis, [...] discussion- Primary Other specified counseling Atherosclerosis of lime coronary artery of lime heart without angina pectoris Colby filter in place Other postprocedural status Hypertensive [...] with long-term current use of insulin (HCC) [employer] Other*[id number] Screening mammogram for breast cancer documented in this encounter Advance Directives Documents on File Type Date 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
--- OUTSIDE RECORDS SUMMARY | 2024-12-09 19:26 | External Medical Summary | Summary of Care ---
Author Name Unknown Organization [facility] Address [address] [place] [address] Phone [phone] Care Team Providers Care Tanning Salon Attendant Name Role Phone PratimaGaldino DO Primary Care Provider [phone] Reason for Visit * Reason Onset Date Comments Medication Refill 11/05/2024 Encounter Details Date Type Department Care Team (Late st Contact Info) Description 11/05/2024 Telephone Pharmacy, [facility] [address] [facility] [place] [address] [facility] [address] [place] [address] Medication Refill Allergies Active Allergy Reactions Criticality Noted Date [...] as of this encounter (statuses as of 11/07/2024) Medications ONETOUCH DELICA LANCETS 33G MISC Check [...] Dexcom G7 Sensor Use as directed. (From [facility]) 06/01/20 Active OneTouch Verio In Vitro [...] 1 07/31/20 24 Active Comfort EZ Pen Spring 31G X 8 MM (Insulin Pen Needle) [...] as needed for Cramping. 180 Tablet 3 11/07/19 25 Active DULoxetine HCl 60 MG Oral Capsule Delayed Release Particles (Cymbalta)Indicati ons:Fibromyalgia,M ajor depressive disorder, recurrent, moderate (HCC) Take 1 Capsule by mouth in the morning. 28 Capsule 5 11/07/19 25 Active Apixaban 2.5 MG Oral Tablet (Eliquis)Indicatio ns:Recurrent deep vein thrombosis (DVT) of both lower extremities (HCC) Take 1 Tablet by mouth in the morning and 1 Tablet before bedtime. 56 Tablet 11/07/19 25 Active Ferrous Sulfate 325 (65 Fe) MG Oral Tablet (Feosol)Indication s:Anemia Take 1 Tablet by mouth in the morning and 1 Tablet before bedtime. 56 Tablet 11/07/19 25 Active Fluticasone Propionate 50 MCG/ACT Nasal Suspension (Flonase) Administer 2 Sprays into nostril in the morning and 2 Sprays before bedtime. 16 g 3 11/07/19 25 Active Furosemide 40 MG Oral Tablet (Lasix)Indications :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 3b chronic kidney disease (HCC) Take 1.5 Tablets by mouth 2 times a day. 84 Tablet 11/07/19 25 Active Gabapentin 300 MG Oral Capsule (Neurontin)Indicat ions:Fibromyalgia, Lumbar radiculopathy Take 1 Capsule by mouth in the morning and 1 Capsule before bedtime. 60 Capsule 5 11/07/19 25 Active Levothyroxine Sodium 200 MCG Oral Tablet (Levoxyl)Indicatio ns:Postsurgical hypothyroidism Take 1 Tablet by mouth daily first thing in the morning. (at least 30 min prior to breakfast or other meds) 28 Tablet 11/07/19 25 Active Magnesium Oxide -Mg Supplement [...] 7.0%-8.0% ([facility]) Inject 8 units with breakfast and 6 units lunch and 10 units with dinner + sliding scale 1 units for every 30 units BG > 150. 150 mL 3 11/07/19 25 Active Omeprazole 20 MG Oral Capsule Delayed Release (PriLOSEC)Indicati ons:Gastroesophage al reflux disease with esophagitis without hemorrhage Take 1 Capsule by mouth in the morning. 28 Capsule 11/07/19 25 Active Polyethylene Glycol 3350 17 [...] heart failure ([facility]) Take 1 Tablet by mouth in the morning and 1 Tablet before bedtime. 56 Tablet 11/07/19 25 Active rOPINIRole HCl 2 MG Oral Tablet (Requip)Indication s:Restless legs syndrome Take 1 Tablet by mouth at bedtime. 28 Tablet 11/07/19 25 Active Rosuvastatin Calcium 5 MG Oral Tablet (Crestor)Indicatio ns:Dyslipidemia Take 1 Tablet by mouth in the morning. 28 Tablet 11/07/19 25 Active Sennosides-Docusat e Sodium 8.6-50 MG Oral Tablet (Senna-Time S) Take 1 Tablet by mouth in the morning and 1 Tablet before bedtime. 100 Tablet 6 11/07/19 25 Active tiZANidine HCl 4 MG Oral Tablet (Zanaflex)Indicati ons:Spinal stenosis of lumbar region without neurogenic claudication Take 1 Tablet by mouth every 6 hours as needed for Muscle spasms. 60 Tablet 11/07/19 25 Active traMADol HCl 50 MG Oral Tablet (Ultram)Indication s:Lumbar radiculopathy,Prim elif osteoarthritis of both knees Take 1 Tablet by mouth every 8 hours as needed for Pain, Severe. 90 Tablet 11/07/19 25 Active traZODone HCl 50 MG Oral Tablet (Desyrel) Take 1 Tablet by mouth at bedtime. 28 Tablet 5 11/07/19 25 Active Tresiba FlexTouch 100 UNIT/ML Subcutaneous Solution Pen-injector (Insulin Degludec)Indicatio ns:Type 2 diabetes mellitus with hemoglobin A1c goal of 7.0%-8.0% (HCC) INJECT 38 UNITS UNDER THE SKIN IN THE EVENING 15 mL 11/07/19 25 Active Clopidogrel Bisulfate 75 MG Oral Tablet (pLAVix) Take 1 Tablet by mouth in the morning. 28 Tablet 11 11/07/19 25 Active NovoLOG FlexPen 100 UNIT/ML Subcutaneous Solution Pen-injector (insulin aspart)Indications :Type 2 diabetes mellitus with hemoglobin A1c goal of 7.0%-8.0% ([facility]) Inject 8 units with breakfast and 6 units lunch and 10 units with dinner + sliding scale 1 units for every 30 units BG > 150. 150 mL 3 05/16/20 23 025 Discontin ued(Refil l) Plavix 75 MG Oral Tablet Take 1 Tablet by mouth in the morning. 07/11/20 23 025 Discontin ued(Refil l) Aspirin 81 MG Oral Tablet Delayed Release Take 1 Tablet by mouth in the morning. 025 Discontin ued(Refil l) Ferrous Sulfate 325 (65 Fe) MG Oral Tablet (Feosol)Indication s:Anemia Take 1 Tablet by mouth in the morning and 1 Tablet before bedtime. 10/14/19 24 025 Discontin ued(Refil l) Cholecalciferol 25 MCG (1000 UT) Oral Capsule Take 1 capsule by mouth once daily in the morning 30 Capsule 5 06/12/20 24 025 Discontin ued(Refil l) Dicyclomine HCl 20 MG Oral Tablet (Bentyl)Indication s:Irritable bowel syndrome, unspecified type Take 1 Tablet by mouth 4 times a day as needed for Cramping. 180 Tablet 3 06/19/20 24 025 Discontin ued(Refil l) Levothyroxine Sodium 200 MCG Oral Tablet (Levoxyl)Indicatio ns:Postsurgical hypothyroidism TAKE 1 TABLET BY MOUTH ONCE DAILY IN THE MORNING 90 Tablet 1 07/29/20 24 025 Discontin ued(Refil l) Gabapentin 300 MG Oral Capsule (Neurontin)Indicat ions:Lumbar radiculopathy,Fibr omyalgia Take 1 Capsule by mouth in the morning and 1 Capsule before bedtime. 60 Capsule 5 07/31/20 24 025 Discontin ued(Refil l) Tresiba FlexTouch 100 UNIT/ML Subcutaneous Solution Pen-injector (Insulin Degludec)Indicatio ns:Type 2 diabetes mellitus with hemoglobin A1c goal of 7.0%-8.0% ([facility]) INJECT 38 UNITS UNDER THE SKIN IN THE EVENING 15 mL 5 08/20/20 24 025 Discontin ued(Refil l) rOPINIRole HCl 2 MG Oral Tablet (Requip)Indication s:Restless legs syndrome TAKE 1 TABLET BY MOUTH AT BEDTIME 30 Tablet 5 08/20/20 24 025 Discontin ued(Refil l) Magnesium Oxide 400 MG Oral TabletIndications: Benign hypertensive heart and kidney disease with diastolic CHF, NYHA class 1 and CKD stage 3 (HCC),Chronic diastolic congestive heart failure (HCC) TAKE 1 TABLET BY MOUTH IN THE MORNING AND AT BEDTIME 60 Tablet 5 08/20/20 24 025 Discontin ued(Refil l) Furosemide 40 MG Oral Tablet (Lasix)Indications :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 3b chronic kidney disease (HCC) Take 1.5 Tablets by mouth in the morning and 1.5 Tablets before bedtime. Morning and noon. 30 Tablet 2 09/17/20 24 025 Discontin ued(Refil l) Rosuvastatin Calcium 5 MG Oral Tablet (Crestor)Indicatio ns:Dyslipidemia Take 1 Tablet by mouth in the morning. 30 Tablet 5 09/17/20 24 025 Discontin ued(Refil l) Fluticasone Propionate 50 MCG/ACT Nasal Suspension (Flonase) Administer 2 Sprays into nostril in the morning and 2 Sprays before bedtime. 16 g 3 10/11/19 25 025 Discontin ued(Refil l) Eliquis 2.5 MG Oral Tablet (Apixaban) TAKE 1 TABLET BY MOUTH IN THE MORNING AND AT BEDTIME 60 Tablet 11 10/16/19 25 025 Discontin ued(Refil l) clonazePAM 0.5 MG Oral Tablet (KlonoPIN)Indicati ons:Restless legs syndrome,Anxiety state TAKE 1 TABLET BY MOUTH THREE TIMES A DAY 84 Tablet 10/16/19 25 025 Discontin ued(Refil l) Senna-Time S 8.6-50 MG Oral Tablet (senna-docusate) TAKE 1 TABLET BY MOUTH IN THE MORNING AND AT BEDTIME 60 Tablet 6 10/16/19 25 025 Discontin ued(Refil l) Omeprazole 20 MG Oral Capsule Delayed Release (PriLOSEC)Indicati ons:Gastroesophage al reflux disease with esophagitis without hemorrhage TAKE 1 CAPSULE BY MOUTH ONCE DAILY IN THE MORNING 30 Capsule 5 10/16/19 25 025 Discontin ued(Refil l) DULoxetine HCl 60 MG Oral Capsule Delayed Release Particles (Cymbalta)Indicati ons:Fibromyalgia,M ajor depressive disorder, recurrent, moderate (HCC) TAKE 1 CAPSULE BY MOUTH ONCE DAILY IN THE MORNING 30 Capsule 5 10/16/19 25 025 Discontin ued(Refil l) Potassium Chloride Ayleen ER 20 MEQ Oral Tablet Extended ReleaseIndications :Benign hypertensive heart and kidney disease with diastolic CHF, NYHA class 1 and CKD stage 3 (HCC),Chronic diastolic congestive heart failure (HCC) TAKE 1 TABLET BY MOUTH IN THE MORNING AND AT BEDTIME 60 Tablet 5 10/16/19 25 025 Discontin ued(Refil l) traZODone HCl 50 MG Oral Tablet (Desyrel) TAKE 1 TABLET BY MOUTH AT BEDTIME 30 Tablet 5 10/16/19 25 025 Discontin ued(Refil l) Polyethylene Glycol 3350 17 GM/SCOOP Oral Powder (MiraLax)Indicatio ns:Drug-induced constipation Take 17 g by mouth in the morning. Dissolve one heaping tablespoon in 8 ounces of water or juice.. 510 g 3 10/22/19 25 025 Discontin ued(Refil l) tiZANidine HCl 4 MG Oral Tablet (Zanaflex)Indicati ons:Spinal stenosis of lumbar region without neurogenic claudication Take 1 Tablet by mouth every 6 hours as needed for Muscle spasms. 60 Tablet 10/22/19 25 025 Discontin ued(Refil l) traMADol HCl 50 MG Oral Tablet (Ultram)Indication s:Primary osteoarthritis of both knees,Lumbar radiculopathy Take 1 Tablet by mouth every 8 hours as needed for Pain, Severe. 90 Tablet 10/22/19 25 025 Discontin ued(Refil l) Hospital, Clinic, [...] as of this encounter (statuses as of 11/07/2024) Active Problems Problem Noted Date Diagnosed Date [...] by vascular, reports upcoming carotid surgery at [facility]. She states she has rx for atorvastatin and plavix to pick pack worker at pharmacy. 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 Atherosclerosis of eagle co ronary artery without angina pectoris 12/31/2021 [...] 8:05 AM EDT): Home PT to start Hanna filter in place 08/19/2014 History of pulmonary [...] evidently given by vascular, has to pick pack worker rx documented as of this encounter (statuses as of 11/07/2024) Resolved Problems Problem Noted Date Diagnosed Date [...] as of this encounter (statuses as of 11/07/2024) Immunizations Name Administration Dates Next Due COVID-19 mRNA, LNP-s, No Pre serve, 2-Dose Series (Method CRM) 01/08/2021,12/18/2020 COVID-19, LNP-s, No Preserve , Navarro-sucrose, Ages 12+ (Pfizer) 2022,10/01/2021 COVID-19, MRNA-LNP, PF, 30 M CG/0.3 mL, 12 YRS AND ABOVE, IM (PFIZER-Comirnaty) 07/31/2024,07/26/2023 Pneumococcal Conjugate Vacci ne, 20-valent ([id number]) 03/12/2022 Pneumococcal Polysaccharide PPV23 (Pneumovax) 08/22/2009,06/15/2006 RSV [...] Miscellaneous Notes * Telephone Encounter - Galdino Andujar, DO - 11/07/2024 9:15 AM EST Medication orders signed. I have reviewed the patients controlled substance dispensing history in the Prescription Drug Monitoring Program in compliance with the [facility] regulations before prescribing a controlled substance. Last Tox Screen Results: Results for orders placed or performed in visit on 03/12/24 PAIN MANAGEMENT DRUG PANEL, URINE W/ INTERPRETATION Result Value Pain Management Interpretation Based on the medication information provided: The positive oxycodone screening result is CONSISTENT with oxycodone use. Confirmatory testing is available upon request. The presence of tramadol and o-desmethyltramadol is CONSISTENT with tramadol use. The presence of 7-aminoclonazepam is CONSISTENT with clonazepam use. Amphetamines Screen, U Negative Benzodiazepines Screen, U Refer to confirmation results (A) Cannabinoids Screen, U Negative Cocaine Metabolite Screen, U Negative Fentanyl Screen, U Negative Hydrocodone Screen, U Negative Methadone Metabolite Screen, U Negative Morphine/Codeine Screen, U Negative Oxycodone Screen, U Positive (A) Specimen Validity Interpretation Normal Creatinine, U 30 Narrative Cutoff Concentrations: Drug Level Amphetamines 500 [...] in Results Review. * Telephone Encounter - Ana Ramírez [facility] - 11/05/2024 3:34 PM EST Good afternoon, I got a request from Tasha Kramer to do pill packs for Stephanie. I guess she has gotten everything from [facility] in the past, but would like to have them with us now. Arecarolinau able to route new Rx's to my location at [facility] so we can get that up running for her? Thank you!! documented in this encounter Plan of Treatment Upcoming Encounters Date Type Department Care Team (Late st Contact Info) Description 11/08/2024 1:00 PM EST PulmDiagnostic Pulmonary Function Lab, [facility] [address] [facility] [place] [address] [address] [facility] [place] [address] 11/08/2024 2:30 PM EST Imaging Radiology [facility] 1st Floor, [place] [address] [place] [phone] 12/19/2024 1:30 PM EDT Office Visit Pulmonary Medicine, [address] [place] [address] Jhonny Holley MD [address] [place] [id number] 12/20/2024 11:20 AM EDT Office Visit [address] [place] [address] Galdino Andujar, DO [address] [place] [address] 02/05/2025 1:00 PM EDT Office Visit [address] [place] [phone] Galdino Andujar, [address] [place] [address] 06/13/2025 1:30 PM EDT Imaging Radiology [address] [place] [phone] Scheduled Procedures Name Priority Associated Diagnoses Date/Ti me COLONOSCOPY FLEXIBLE PROXIMAL DIAGNOSTIC Recall Colon cancer screening Health Maintenance Due Date Last Done Comments Cologuard 2000 Fecal Occult Blood Test 2000 Sigmoidoscopy 2000 CKD PHOS USE SMARTSET 11902 12/26/202410/2023, 02/11/2023, 01/07/2022, Additional history exists Adult Wellness Visit 02/13/2025 02/14/2024, 08/05/20 22 GFR 04/21/2025 10/22/2024, 12/11/2023, 06/26/2024, Additional history exists HbA1c 04/21/2025 10/22/2024, 09/2023, 03/26/2024, Additional history exists Mammogram 06/12/2025 06/12/2024, 05/27, 04/21/2023, Additional history exists Diabetic Eye Exam 07/06/2025 07/06/2024, , 07/06/2024, Additional history exists Albumin/Creatinine Ratio 10/22/2025 025, 08/05/2023, 11/01/2022, Additional history exists CKD HGB USE SMARTSET 96193 10/22/202510/22, 10/22/2024, 10/11/2024, Additional history exists Depression [...] depressive disorder ([facility]) Advanced care planning/counseling discussion Other specified counseling ILD (interstitial lung disease) ([facility])- Primary Postinflammatory pulmonary fibrosis Fibromyalgia Mylagia and myositis, unspecified Moderate episode of recurrent major depressive disorder (HCC) Primary osteoarthritis of both knees Primary localized osteoarthrosis, lower leg Chronic hypoxemic respiratory failure ([facility]) Chronic respiratory failure 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 3b chronic kidney disease ([facility]) Advanced care planning/counseling discussion- Primary Other specified counseling Atherosclerosis of eagle coronary artery of eagle heart without angina pectoris Carotid artery stenosis, asymptomatic, right Essential hypertension with goal blood pressure less than 140/[address] Other postprocedural status 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 3b chronic kidney disease ([facility]) Recurrent deep vein thrombosis (DVT) of both lower extremities ([facility]) Chronic hypoxemic respiratory failure ([facility]) Chronic respiratory failure ELISSA (obstructive sleep apnea) Obstructive sleep apnea (adult) (pediatric) Type 2 diabetes mellitus with hemoglobin A1c goal of less than 8.0% ([facility]) Fibromyalgia Mylagia and myositis, unspecified Restless legs syndrome Restless legs syndrome (RLS) Chronic kidney disease, stage 3b ([facility]) History of pulmonary embolus (PE) Personal history of pulmonary embolism Moderate episode of recurrent major depressive disorder ([facility]) Advanced care planning/counseling discussion- Primary Other specified counseling Atherosclerosis of eagle coronary artery of eagle heart without angina pectoris Hanna filter in place Other postprocedural status 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 3b chronic kidney disease ([facility]) Recurrent deep vein thrombosis (DVT) of both lower extremities (HCC) Chronic hypoxemic respiratory failure (HCC) Chronic respiratory failure Gastroesophageal reflux disease with esophagitis without hemorrhage Sacroiliitis, not elsewhere classified ([facility]) Sacroiliitis, not elsewhere classified 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 3b chronic kidney disease, with long-term current use of insulin ([facility]) History of pulmonary embolus (PE) [...] Other and unspecified hyperlipidemia DM peripheral angiopathy ([facility]) Type II or unspecified type diabetes mellitus with peripheral circulatory disorders, not stated as uncontrolled H/O transcarotid artery revascularization ([facility])- Primary 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 3b chronic kidney disease (HCC) Type 2 diabetes mellitus with stage 3b chronic kidney disease, with long-term current use of insulin ([facility]) Vitamin D deficiency- Primary Unspecified vitamin D deficiency Restless legs syndrome Restless legs syndrome (RLS) Anxiety state Anxiety state, unspecified Irritable bowel syndrome, unspecified type Fibromyalgia Mylagia and myositis, unspecified Major depressive disorder, recurrent, moderate (HCC) Major depressive disorder, recurrent episode, moderate Anemia Anemia, unspecified 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 3b chronic kidney disease (HCC) Lumbar radiculopathy Thoracic or lumbosacral neuritis or radiculitis, unspecified POSTSURGICAL HYPOTHYROID Postsurgical hypothyroidism Benign hypertensive heart and kidney disease with diastolic CHF, NYHA class 1 and CKD stage 3 (HCC) Chronic diastolic congestive heart failure (HCC) Chronic diastolic heart failure Vertigo Dizziness and giddiness Type 2 diabetes mellitus with hemoglobin A1c goal of 7.0%-8.0% ([facility]) Gastroesophageal reflux disease with esophagitis without hemorrhage Drug-induced constipation Other constipation Dyslipidemia Other and unspecified hyperlipidemia Spinal stenosis of lumbar region without neurogenic claudication Spinal stenosis, lumbar region, without neurogenic claudication Primary osteoarthritis of both knees Primary localized osteoarthrosis, lower leg Recurrent deep vein thrombosis (DVT) of both lower extremities (HCC) Screening mammogram for breast cancer documented in this encounter Advance Directives Documents on File Type Date Recorded Patient Data Analysis Assistant Expl anation POLST 03/19/2020 4:25 PM [...] File Name Relationship Healthcare Agent Relationship Communication aGldino Camp Other - (no specific identity) Health Care Power of Shoder Filler Princess Staplesfany Other - (no specific identity) Health Care Power of Shoder Filler Care Teams Tanning Salon Attendant Relationship Specialty Start Date End Date Galdino Andujar DO [address] [place] [address] PCP - General Internal Medicine 03/08/24 documented as of this encounter
--- OUTSIDE RECORDS SUMMARY | 2024-12-09 19:26 | External Medical Summary | Summary of Care ---
Author Name Unknown Organization [facility] Address [address] [place] [address] Phone [phone] Care Team Providers Care Carton Making Machine Operator Name Role Phone Galdino Andujar DO Primary Care Provider [phone] Reason for Visit * Reason Onset Date Comments Advice 11/05/202411/05 Encounter Details Date Type Department Care Team (Late st Contact Info) Description 11/05/2024 Telephone Family Practice [address] [facility], [place] [address] [place] [address] Galdino Andujar DO [address] [place] [address] Advice (11/05) Allergies Active Allergy Reactions Criticality Noted Date [...] as of this encounter (statuses as of 11/06/2024) Medications ONETOUCH DELICA LANCETS 33G MISC Check blood sugars 3-4 times daily 180 Each 5 08/01/20 Active oxygen GASIndications:ELISSA (obstructive sleep apnea) Use 3 L/min(Oxygen) as directed continuous. 11/28/19 Active CPAP [...] Dexcom G7 Sensor Use as directed. (From [facility]) 06/01/20 Active Plavix 75 MG Oral Tablet [...] failure 100 Strip 11 02/02/20 24 Active Cholecalciferol 25 MCG (1000 UT) Oral [...] taking differently: 41 Units Subcutaneous DAILY(1900), Per [facility], Reported on 10/29/2024 rOPINIRole HCl 2 MG [...] 5 09/17/20 24 Active Comfort EZ Pen [place] 31G X 8 MM (Insulin Pen Needle) [...] for Pain, Severe. 90 Tablet 10/22/19 25 Active Fluconazole 150 MG Oral Tablet (Diflucan) Take 1 Tablet by mouth once for 1 dose. 1 Tablet 11/05/19 25 025 Hospital, Clinic, or Other Facility Administered Medication [...] as of this encounter (statuses as of 11/06/2024) Active Problems Problem Noted Date Diagnosed Date [...] 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 Atherosclerosis of [place] co ronary artery without angina pectoris 12/31/2021 [...] this coming week F/u scheduled with Dr. Tagn Spinal stenosis of lumbar re gion without [...] as of this encounter (statuses as of 11/06/2024) Resolved Problems Problem Noted Date Diagnosed Date [...] as of this encounter (statuses as of 11/06/2024) Immunizations Name Administration Dates Next Due COVID-19 mRNA, LNP-s, No Pre serve, 2-Dose Series ([employer]) 01/08/2021,12/18/2020 COVID-19, LNP-s, No Preserve , Navarro-sucrose, Ages 12+ (Pfizer) 2022,10/01/2021 COVID-19, MRNA-LNP, PF, 30 M CG/0.3 mL, 12 YRS AND ABOVE, IM (PFIZER-Comirnaty) 07/31/2024,07/26/2023 Pneumococcal Conjugate Vacci ne, 20-valent ([id number]) 03/12/2022 Pneumococcal Polysaccharide PPV23 (Pneumovax) 08/22/2009,06/15/2006 RSV [...] Telephone Encounter - Flaca Springer LPN - 11/05/2024 3:59 PM EST Call placed to patient and relayed information from Dr. Andujar. Pt acknowledged understanding. Pharmacy confirmed. Medication pended. * Telephone Encounter - Galdino Andujar DO - 11/05/2024 9:27 AM EST Treat with Diflucan 150 mg x 1 dose * Telephone Encounter - Chasity Del Toro LPN - 11/05/2024 9:06 AM EST Pt calling in stating she thinks she has a yeast infection now. Was just on Cipro for UTI- started 10/24. C/o burning, itching, white discharge. States she is also still having some dysuria and frequency, but feels that the UTI symptoms have mostly improved and now has yeast infection. Symptoms started over the weekend. Unable to come in and give a urine sample. Pharmacy selected in chart if appropriate. documented in this encounter Plan of Treatment Upcoming Encounters Date Type Department Care Team (Late st Contact Info) Description 11/08/2024 1:00 PM EST PulmDiagnostic Pulmonary Function Lab, [facility] 132 [facility] [place] [address] [address], [address] [facility] [place] [address] 11/08/2024 2:30 PM EST Imaging Radiology [place] [address] [place] [phone] 12/19/2024 1:30 PM EDT Office Visit Pulmonary Medicine, [facility] 132 [facility] [place] [address] Jhonny Holley MD [address] [place] [address] 12/20/2024 11:20 AM EDT Office Visit Family Practice [address] [place] [address] 293 [place] [address] Galdino Andujar, 293 [place] [address] 02/05/2025 1:00 PM EDT Office Visit Family Practice [address] [place] [address] 293 [place] [address] Galdino Andujar, 293 [place] [address] 06/13/2025 1:30 PM EDT Imaging Radiology [address] [facility] [place] [phone] Scheduled Procedures Name Priority Associated Diagnoses Date/Ti me COLONOSCOPY FLEXIBLE PROXIMAL DIAGNOSTIC Recall Colon cancer screening Health Maintenance Due Date Last Done Comments Cologuard 2000 Fecal Occult Blood Test 2000 Sigmoidoscopy 2000 CKD PHOS USE SMARTSET 29362 12/26/2024 04/0 10/2023, 02/11/2023, 01/07/2022, Additional history exists Adult Wellness Visit 02/13/2025 02/14/2024, 08/05/20 22 GFR 04/21/2025 10/22/2024, 08/27, 06/26/2024, Additional history exists HbA1c 04/21/2025 10/22/2024, 09/2023, 03/26/2024, Additional history exists Mammogram 06/12/2025 06/12/2024, 05/27, 04/21/2023, Additional history exists Diabetic Eye Exam 07/06/2025 07/06/2024, , 07/06/2024, Additional history exists Albumin/Creatinine Ratio 10/22/2025 025, 08/05/2023, 11/01/2022, Additional history exists CKD HGB USE SMARTSET 07254 10/22/202510/22, 10/22/2024, 10/11/2024, Additional history exists Depression [...] Documents on File Type Date Recorded Patient Sprayer Automatic Spray Machine Expl anation POLST 03/19/2020 4:25 PM POLST [...] (no specific identity) Health Care Power of Music Typographer Princess Allen Other - (no specific identity) Health Care Power of Music Typographer Care Teams Carton Making Machine Operator Relationship Specialty Start Date End Date Galdino Andujar DO [address] [place] [address] PCP - General Internal Medicine 03/08/24 documented as of this encounter
--- OUTSIDE RECORDS SUMMARY | 2024-12-09 19:26 | External Medical Summary | Summary of Care ---
Author Name Unknown Organization [facility] Address [address] [place] [address] Phone [phone] Care Team Providers Care Cloth Finishing Range Operator Name Role Phone Galdino Andujar DO Primary Care Provider Reason for Visit * Reason Onset Date Comments Other 10/31/2024 Encounter Details Date Type Department Care Team (Late st Contact Info) Description 10/31/2024 Telephone Family Practice [facility], [place] [address] [place] [address] Galdino Andujar DO [address] [place] [address] Other Allergies Active Allergy Reactions Criticality Noted [...] as of this encounter (statuses as of 10/31/2024) Medications ONETOUCH DELICA LANCETS 33G MISC Check [...] Dexcom G7 Sensor Use as directed. (From [facility]) 06/01/20 Active Plavix 75 MG Oral [...] use of insulin ([facility]) Inject 7.5 mg under the skin once a week. 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 90 Tablet 10/22/19 Active Hospital, Clinic, or Other Facility Administered [...] as of this encounter (statuses as of 10/31/2024) Active Problems Problem Noted Date Diagnosed Date [...] has rx for atorvastatin and plavix to lemon picker at pharmacy. Type 2 diabetes mellitus [...] (08/11/2022 4:32 PM EST): Followed by freddy Gonzalez today Moderate episode [...] 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 Atherosclerosis of [place] co ronary artery without angina pectoris 12/31/2021 [...] 8:05 AM EDT): Home PT to start [place] filter in place 08/19/2014 History of pulmonary [...] rx evidently given by vascular, has to lemon picker rx documented as of this encounter (statuses as of 10/31/2024) Resolved Problems Problem Noted Date Diagnosed Date [...] 09/27/2018 05/14/2019 Mild episode of recurrent ma jaane depressive disorder 08/26/2018 08/30/2022 Assessment & Plan [...] as of this encounter (statuses as of 10/31/2024) Immunizations Name Administration Dates Next Due COVID-19 mRNA, LNP-s, No Pre serve, 2-Dose Series ([employer]) 01/08/2021,12/18/2020 COVID-19, LNP-s, No Preserve , Navarro-sucrose, Ages 12+ (Pfizer) 2022,10/01/2021 COVID-19, MRNA-LNP, PF, 30 M CG/0.3 mL, 12 YRS AND ABOVE, IM (PFIZER-Comirnaty) 07/31/2024,07/26/2023 Pneumococcal Conjugate Vacci ne, 20-valent ([id number]) 03/12/2022 Pneumococcal Polysaccharide PPV23 (Pneumovax) 08/22/2009,06/15/2006 RSV [...] Miscellaneous Notes * Telephone Encounter - Tasha Springer RPh - 10/31/2024 10:47 AM EST Covering pharmacist. Patient requesting pill packs through [employer] ([facility]). Form submitted. Patient requests follow-up with clinic pharmacist later in week. Tasha Springer, PharmD, [facility] Clinical Pharmacist- Verification Manager Medication Therapy Disease Management 10/31/2024 11:13 AM * Telephone Encounter - Annalee Hernandez OSA - 10/31/2024 9:13 AM EST Pt calling for Ching. Requesting call back. documented in this encounter Plan of Treatment Upcoming Encounters Date Type Department Care Team (Late st Contact Info) Description 11/08/2024 1:00 PM EST PulmDiagnostic Pulmonary Function Lab, [facility] 132 [facility] [place] [address] [address], [address] 132 [facility] [place] [address] 11/08/2024 2:30 PM EST Imaging Radiology [address] [place] [phone] 12/19/2024 1:30 PM EDT Office Visit Pulmonary Medicine, [facility] 132 [facility] [place] [address] Jhonny Holley MD [address] [place] [address] 12/20/2024 11:20 AM EDT Office Visit Family Practice [address] [place] [address] 293 [place] [phone] Galdino Andujar, DO 293 [facility] [place] [address] 02/05/2025 1:00 PM EDT Office Visit Family Practice [address] [place] [address] 293 [place] [phone] Galdino Andujar, DO 293 [facility] [place] [address] 06/13/2025 1:30 PM EDT Imaging Radiology [address] [place] [phone] Scheduled Procedures Name Priority Associated Diagnoses Date/Ti me COLONOSCOPY FLEXIBLE PROXIMAL DIAGNOSTIC Recall Colon cancer screening Health Maintenance Due Date Last Done Comments Cologuard 2000 Fecal Occult Blood Test 2000 Sigmoidoscopy 2000 CKD PHOS USE SMARTSET 85380 12/26/2024 04/0 10/2023, 02/11/2023, 01/07/2022, Additional history [...] Additional history exists CKD HGB USE SMARTSET 91569 10/22/202510/22, 10/22/2024, 10/11/2024, Additional history exists Depression [...] Documents on File Type Date Recorded Patient Finishing Lab Technician Expl anation POLST 03/19/2020 4:25 PM [...] (no specific identity) Health Care Power of Head Packager Princess Allen Other - (no specific identity) Health Care Power of Head Packager Care Teams Cloth Finishing Range Operator Relationship Specialty Start Date End Date Galdino Andujar DO [address] [place] [address] PCP - General Internal Medicine 03/08/24 documented as of this encounter
--- OUTSIDE RECORDS SUMMARY | 2024-12-09 19:26 | External Medical Summary | Summary of Care ---
Author Name Unknown Organization [facility] Address [address] [place] [address] Phone [phone] Care Team Providers Care Interventionist Name Role Phone ZiaandrewsGaldino DO Primary Care Provider [phone] Encounter Details Date Type Department Care Team (Late st Contact Info) Description 11/06/2024 Population Health External Data Unspecified Department Allergies Active Allergy Reactions Criticality Noted Date [...] Dexcom G7 Sensor Use as directed. (From [facility]) 06/01/20 Active OneTouch Verio In Vitro [...] of insulin ([facility]) Inject 7.5 mg under the [...] 1 07/31/20 24 Active Comfort EZ Pen [place] 31G X 8 MM (Insulin Pen [...] the morning. 28 Capsule 11/07/19 25 Active Apixaban 2.5 MG Oral [...] and 2 Sprays before bedtime. 16 g 11/07/19 25 Active Furosemide 40 MG Oral [...] and 1 Capsule before bedtime. 60 Capsule 11/07/19 25 Active Levothyroxine Sodium 200 MCG [...] units BG > 150. 150 mL 3 /12/20 25 Active Omeprazole 20 MG Oral Capsule [...] [facility]),Chronic diastolic congestive heart failure ([facility]) Take 1 Tablet [...] at bedtime. 28 Tablet 11/07/19 25 Active Tresiba FlexTouch 100 UNIT/ML Subcutaneous Solution Pen-injector (Insulin Degludec)Indicatio ns:Type 2 diabetes mellitus with hemoglobin A1c goal of 7.0%-8.0% ([facility]) INJECT 38 UNITS UNDER THE SKIN IN THE EVENING 15 mL 5 11/07/19 25 Active Clopidogrel Bisulfate 75 MG Oral Tablet (pLAVix) Take 1 Tablet by mouth in the morning. 28 Tablet 11 11/07/19 25 Active Hospital, Clinic, or Other [...] by vascular, reports upcoming carotid surgery at [facility]. She states she has [...] 8:05 AM EDT): Home PT to start [place] filter in place 08/19/2014 History of pulmonary [...] mRNA, LNP-s, No Pre serve, 2-Dose Series ([employer]) 01/08/2021,12/18/2020 COVID-19, LNP-s, No Preserve , Navarro-sucrose, Ages 12+ (Pfizer) 2022,10/01/2021 COVID-19, MRNA-LNP, PF, 30 M CG/0.3 mL, 12 YRS AND ABOVE, IM (PFIZER-Comirnaty) 07/31/2024,07/26/2023 Pneumococcal Conjugate Vacci ne, 20-valent ([id number]) 03/12/2022 Pneumococcal Polysaccharide PPV23 (Pneumovax) 08/22/2009,06/15/2006 RSV [...] 1:00 PM EST PulmDiagnostic Pulmonary Function Lab, [facility] 132 [facility] [place] [address] [address], [address] 132 [facility] [place] [address] 11/08/2024 2:30 PM EST Imaging Radiology [facility]st [facility] [address] [place] [phone] 12/19/2024 1:30 PM EDT Office Visit Pulmonary Medicine, [facility] 132 [facility] [place] [address] Jhonny Holley MD [address] [place] [address] 12/20/2024 11:20 AM EDT Office Visit Family Practice [address] [place] [address] [facility] [phone] Galdino Andujar, DO 293 [facility] [address] 02/05/2025 1:00 PM EDT Office Visit Family Practice [address], [place] [address] [place] [address] Galdino Andujar, DO 293 [facility], [place] [address] 06/13/2025 1:30 PM EDT Imaging Radiology [facility] [address]st [facility], [place] [address] [place] [address] Scheduled Procedures Name Priority Associated Diagnoses Date/Ti me COLONOSCOPY FLEXIBLE PROXIMAL DIAGNOSTIC Recall Colon cancer screening Health Maintenance Due Date Last Done Comments Cologuard 2000 Fecal Occult Blood Test 2000 Sigmoidoscopy 2000 CKD PHOS USE SMARTSET 55797 12/26/2024 040 10/2023, 02/11/2023, 01/07/2022, Additional history exists Adult Wellness Visit 02/13/2025 02/14/2024, 08/05/20 22 GFR 04/21/2025 10/22/2024, 08/27, 06/26/2024, Additional history exists HbA1c 04/21/2025 10/22/2024, 1009/2023, 03/26/2024, Additional history exists Mammogram 06/12/2025 06/12/2024, 05/27, 04/21/2023, Additional history exists Diabetic Eye Exam 07/06/2025 07/06/2024, , 07/06/2024, Additional history exists Albumin/Creatinine Ratio 10/22/2025 025, 08/05/2023, 11/01/2022, Additional history exists CKD HGB USE SMARTSET 30614 10/22/202510/22, 10/22/2024, 10/11/2024, Additional history exists Depression [...] Documents on File Type Date Recorded Patient Cattle Inspector Expl anation POLST 03/19/2020 4:25 PM [...] (no specific identity) Health Care Power of Strap Buckler Machine Princess Allen Other - (no specific identity) Health Care Power of Strap Buckler Machine Care Teams Interventionist Relationship Specialty Start Date End Date Galdino Andujar DO [address] [place] [address] PCP - General Internal Medicine 03/08/24 documented as of this encounter
--- OUTSIDE RECORDS SUMMARY | 2024-12-09 19:27 | External Medical Summary ---
Author Name Unknown Address Unknown Organization K01:LABORATORY [facility] - [address] [facility] [address] Laboratory Report Ordering Provider Test Date Status JAG SHULTZ 10/22/2024 14:54:26 Final Observation Date Value Abnormality Reference (Units ) Status SYNC LEUKOCYTES IN BLOOD BY AUTOMATED COUNT 10/22/2024 14:54:26 11.33 Above high normal 4.00-10.80 (K/uL) Final Segs 10/22/2024 14:54:26 60.3 40.0-75.0 (%) Final Lymphs % 10/22/2024 14:54:26 28.5 18.0-42.0 (%) Final Monos 10/22/2024 14:54:26 6.0 1.0-11.0 (%) Final Eosinophils 10/22/2024 14:54:26 4.0 0.0-6.0 (%) Final Basos 10/22/2024 14:54:26 0.8 0.0-2.0 (%) Final Immature Granulocyte, Percent 10/22/2024 14:54:26 0.4 0.0-2.0 (%) Final Absolute Segs 10/22/2024 14:54:26 6.83 1.80-7.70 (K/uL) Final Lymphs, absolute 10/22/2024 14:54:26 3.23 1.00-4.80 (K/ul) Final Monos, Abs 10/22/2024 14:54:26 0.68 0.00-1.10 (K/uL) Final Eos, Abs 10/22/2024 14:54:26 0.45 0.00-0.70 (K/uL) Final Basos, Abs 10/22/2024 14:54:26 0.09 0.00-0.20 (K/uL) Final Immature Granulocytes, Number 10/22/2024 14:54:26 0.05 0.00-0.20 (K/uL) Final Performing Location LABORATORY [facility] - [address] [facility] [address]
--- OUTSIDE RECORDS SUMMARY | 2024-12-09 19:27 | External Medical Summary ---
Author Name Unknown Address Unknown Organization K01:LABORATORY [facility] - [address] [facility] [address] Laboratory Report Ordering Provider Test Date Status JAG SHULTZ 10/22/2024 14:56:09 Final <10,000 colonies/ml normal f hayley, one colony type Observation Date Value Abnormality Reference (Units ) Status Bacteria identified in Specimen by Culture 10/22/2024 14:56:09 [id number]^ENTEROB ACTER CLOACAE COMPLEX Abnormal Final 10,000 to 100,000 colonies/m L Enterobacter cloacae complex
This bacterial species is known to produce an inducible AmpC beta lactamase. Except for the treatment of simple cystitis, recommend avoiding penicillins or cephalosporins other than cefepime. Performing Location LABORATORY C - [address] [facility] [address] [facility] [address] Ordering Provider Test Date Status JAG SHULTZ 10/22/2024 14:56:09 Final Observation Date Value Abnormality Reference (Units ) Status Cefepime susceptibility 10/22/2024 14:56:09 <=1 Susceptible Final cefOXitin [Susceptibility] 10/22/2024 14:56:09 >=64 Resistant Final Ceftriaxone suceptibility 10/22/2024 14:56:09 <=1 Susceptible Final Avoid unless for the treatme nt of simple cystitis. Ciprofloxacin 10/22/2024 14:56:09 <=0.25 Susceptible Final Due to serious side effects, the FDA has advised against using Ciprofloxacin to treat uncomplicated UTIs and respiratory tract infections unless there are no alternative treatment options. Gentamicin susceptibility 10/22/2024 14:56:09 <=1 Susc eptible Final Nitrofurantoin susceptibility 10/22/2024 14:56:09 64 Intermediate Final Piperacillin + Tazobactamsusceptibility 10/22/2024 14:56:09 <=4 Susceptible Final Avoid unless for the treatme nt of simple cystitis. TMP-SMZ susceptibility 10/22/2024 14:56:09 <=20 Suscept ible Final Test: Culture, Urine, Quanti tative
Specimen Source: Urine, Clean Catch
Specimen Type: Urine
Specimen Date: 10/22/2024 1456
Result Date: 10/24/2024 1301
Result Status: Final result
Abnormal: Yes
Resulting Lab: LABORATORY [facility]
[address]
[place] [address]

CULTURE

10,000 to 100,000 colonies/mL Enterobacter cloacae complex (Abnormal)

This bacterial species is known to produce an inducible AmpC beta
lactamase. Except for the treatment of simple cystitis, recommend avoiding
penicillins or cephalosporins other than cefepime.

<10,000 colonies/ml normal jaylin, one colony type

SUSCEPTIBILITY

Enterobacter cloacae
complex
METHOD MICROBROTH DILUTIONS

CEFEPIME <=1 Susceptible
CEFOXITIN >=64 Resistant
CEFTRIAXONE <=1 Susceptible
[1]
CIPROFLOXACIN <=0.25 Susceptible
[2]
GENTAMICIN <=1 Susceptible
NITROFURANTOIN 64 Intermediate
PIPERACILLIN TAZOBACTAM <=4 Susceptible
[3]
TRIMETH/SULFAMETHOXAZOLE <=20 Susceptible

[1] Avoid unless for the treatment of simple cystitis.

[2] Due to serious side effects, the FDA has advised against using
Ciprofloxacin to treat uncomplicated UTIs and respiratory tract infections
unless there are no alternative treatment options.

[3] Avoid unless for the treatment of simple cystitis.

null Performing Location LABORATORY [facility] - [address] [facility] [address]
--- OUTSIDE RECORDS SUMMARY | 2024-12-09 19:27 | External Medical Summary | Summary of Care ---
Author Name Unknown Organization [facility] Address [address] [place] [address] Phone [phone] Care Team Providers Care Animal Park Code Enforcement Officer Name Role Phone Galdino Andujar DO Primary Care Provider [phone] Reason for Visit * Reason Comments Dosage Adjustment In Person (Anticoag Cl inic) Diabetes Follow-Up Encounter Details Date Type Department Care Team (Late st Contact Info) Description 10/22/2024 2:10 PM EST Office Visit Family Practice 65 [facility] [address] [place] [phone] [place], Pharmacist [address] [address] Type 2 diabetes mellitus with stage 3b chronic kidney disease, with long-term current use of insulin (HCC)* Allergies Active Allergy Reactions Criticality Noted [...] as of this encounter (statuses as of 10/25/2024) Medications DEMIAN BISWAS LANCETS 33G [facility] Check blood sugars 3-4 times daily 180 [...] Use as directed. (From [facility]) 06/01/20 23 Active Plavix 75 MG Oral Tablet Take 1 Tablet by mouth in the morning. 07/11/20 23 Active Aspirin 81 MG Oral Tablet Delayed [...] insulin ([facility]) Inject 7.5 mg under the skin once [...] 7.0%-8.0% ([facility]) INJECT 38 UNITS UNDER THE SKIN IN THE EVENING 15 mL 5 08/20/20 24 Active Additional Information Patient taking differently: 41 Units Subcutaneous DAILY(1900), Per [facility], Reported on 10/22/2024 rOPINIRole HCl 2 MG Oral Tablet (Requip)Indication [...] 5 09/17/20 24 Active Comfort EZ Pen Gordon 31G X 8 MM (Insulin Pen Needle) [...] MORNING 30 Capsule 5 10/16/19 25 Active DULoxetine HCl 60 MG [...] AT BEDTIME 30 Tablet 10/16/19 25 Active traMADol HCl 50 MG Oral Tablet (Ultram)Indication s:Primary osteoarthritis of both knees,Lumbar radiculopathy Take 1 Tablet by mouth every 8 hours as needed for Pain, Severe. 90 Tablet 09/17/20 24 025 Discontin ued(Refil l) tiZANidine HCl 2 MG Oral Tablet (Zanaflex)Indicati ons:Spasm of muscle Take 1 Tablet by mouth every 8 hours as needed for Muscle spasms. 21 Tablet 10/12/19 25 025 Discontin ued(Medic ation/Dos e Changed) Hospital, Clinic, or Other Facility Administered [...] as of this encounter (statuses as of 10/25/2024) Active Problems Problem Noted Date Diagnosed Date [...] carotid surgery at [facility]. She states she has rx for atorvastatin and plavix to warp picker at pharmacy. 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 Atherosclerosis of [place] co ronary artery without angina pectoris 12/31/2021 [...] rx evidently given by vascular, has to warp picker rx documented as of this encounter (statuses as of 10/25/2024) Resolved Problems Problem Noted Date Diagnosed Date [...] as of this encounter (statuses as of 10/25/2024) Immunizations Name Administration Dates Next Due COVID-19 mRNA, LNP-s, No Pre serve, 2-Dose Series ([employer]) 01/08/2021,12/18/2020 COVID-19, LNP-s, No Preserve , Navarro-sucrose, Ages 12+ (Pfizer) 2022,10/01/2021 COVID-19, MRNA-LNP, PF, 30 M CG/0.3 mL, 12 YRS AND ABOVE, IM (PFIZER-Comirnat) 07/31/2024,07/26/2023 Pneumococcal Conjugate Vacci ne, 20-valent ([id number]) 03/12/2022 Pneumococcal Polysaccharide PPV23 (Pneumovax) 08/22/2009,06/15/2006 RSV [...] ages 0-17 years) Not on file 10/22/2024 Comments No Sex and Gender Information [...] this encounter Progress Notes * Frances Ellis, [facility] - 10/22/2024 1:10 PM EST Images from the original note were not included. Medication Therapy Disease Management [facility] - Diabetes Management Progress Note Stephanie Camp, identified by name and date of , is a 69 year old female being seen for diabetes management/education. Patient presents for return diabetic visit. DIABETES: Current diabetic medications: Novolog - 8 units with breakfast, 6 units lunch and 10 units with supper + SS 1:30 >150 before meals Increase Tresiba 41 units at bedtime Mounjaro 7.5mg weekly Medication Injection Site: Abdomen Lifestyle: Diet: unchanged Glucose Review/SMBG: Readings obtained from patient device Hypoglycemia: Does your blood sugar go below 70 mg/dL? No Hyperglycemia symptoms present: none Recent Labs Units 06/26/24 1430 03/26/24 1115 12/22/23 1139 HEMOGLOBIN A1C - [facility] % 7.8* 8.6* 7.2* Recent Labs Units 09/17/24 1420 06/26/24 1430 05/18/24 1604 ESTIMATED GLOMERULAR FILTRATION RATE - [facility] mL/min 31* 29* 31* CREATININE - [facility] mg/dL 1.8* 1.8* 1.8* HYPERTENSION: Patient on ACEi/ARB: no, previously on lisinopril but was stopped by cardio in 2019 BP Readings from Last 3 Encounters: 10/11/24 120/60 09/17/24 116/66 07/31/24 114/56 Blood pressure at goal: yes HYPERLIPIDEMIA: Recent Labs Units 10/11/24 0705 11/07/23 1643 LDL CHOLESTEROL (CALCULATED) - [facility] mg/dL -- 60 LDL CHOLESTEROL (DIRECT MEASURE) - [facility] mg/dL 66 -- Does patient have clinical ASCVD? Yes, is patient LDL less than 55 mg/dL? No: patient just started rosuvastatin, no repeat lipids yet HEALTH MAINTENANCE REVIEW: Health Maintenance Due Topic Date Due Albumin/Creatinine Ratio 08/05/2024 Diabetic Foot Exam 10/04/2024 ASSESSMENT & PLAN: No diagnosis found. BG Readings - Blood sugars controlled. Overall, blood sugars are within goal, though having some high nights after high carb meals. Medications - Reviewed current regimen, patient is adherent to regimen. Will continue current regimen - hesitate to increase mounjaro at this time due to increased GI effects/IBS lately. Diet, Exercise, Lifestyle - No significant lifestyle changes since last visit. Discussed with patient focusing on combining carbs with protein to avoid highs with long duration. . Patient is agreeable to SMBG with Dexcom CGM. Patient aware to contact clinic if any hypoglycemia before next visit. MEDICATION CHANGES: no change Diabetic Medications: Novolog - 8 units with breakfast, 6 units lunch and 10 units with supper + SS 1:30 >150 before meals Tresiba 41 units at bedtime Mounjaro 7.5mg weekly HEALTH MAINTENANCE INTERVENTIONS: Labs: Ordered & Scheduled: HgA1c, BMP/CMP, and Urine Microalbumin Immunizations: Up to Date Foot Exam: Up to Date Eye Exam: Up to Date Annual Wellness Visit: Up to Date FOLLOW UP: Return to clinic in 8 weeks Visit date not found I spent a total of 20-29 minutes (exact time 25 mins) on the date of service in preparation, delivery, and documentation of the care provided to Stephanie Camp excluding any time spent in the performance of separately billed services. Frances Huerta [facility] Clinical Pharmacist - Missionary Coordinator Medication Therapy Management Clinic 10/22/2024, 1:10 PM documented in this encounter Plan of Treatment Upcoming Encounters Date Type Department Care Team (Late st Contact Info) Description 11/08/2024 1:00 PM EST PulmDiagnostic Pulmonary Function Lab, [facility] [address] [facility] [place] [address] [place], [address] [facility] [place] [address] 11/08/2024 2:30 PM EST Imaging Radiology [address] [place] [phone] 12/19/2024 1:30 PM EDT Office Visit Pulmonary Medicine, [facility] [address] [facility] [place] [address] Jhonny Holley MD [address] [place] [address] 12/20/2024 11:20 AM EDT Office Visit Family Practice [address] [place] [address] 293 [place] [address] Galdino Andujar, DO 293 [facility], [place] [address] 02/05/2025 1:00 PM EDT Office Visit Family Practice [address] [place] [address] [address] [place] [address] Galdino Andujar, DO 293 [facility] [place] [address] 06/13/2025 1:30 PM EDT Imaging Radiology [address] [place] [phone] Scheduled Procedures Name Priority Associated Diagnoses Date/Ti me COLONOSCOPY FLEXIBLE PROXIMAL DIAGNOSTIC Recall Colon cancer screening Health Maintenance Due Date Last Done Comments Cologuard 2000 Fecal Occult Blood Test 2000 Sigmoidoscopy 2000 CKD PHOS USE SMARTSET 58037 12/26/2024 04/0 10/2023, 02/11/2023, 01/07/2022, Additional history [...] Additional history exists CKD HGB USE SMARTSET 97061 10/22/202510/22, 10/22/2024, 10/11/2024, Additional history exists Depression [...] class 1 and CKD stage 3 ([facility])- Primary Fibromyalgia Mylagia and myositis, unspecified Primary osteoarthritis of both knees Primary localized osteoarthrosis, lower leg Anxiety state Anxiety state, unspecified Recurrent deep vein thrombosis (DVT) of both lower extremities (HCC) Chronic hypoxemic respiratory failure ([facility]) Chronic respiratory failure 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 3b chronic kidney disease, with long-term current use of insulin ([facility]) Restless legs syndrome Restless legs syndrome (RLS) ELLIE (generalized anxiety disorder) Generalized anxiety disorder Mild episode of recurrent major depressive disorder ([facility]) Advanced care planning/counseling discussion Other specified counseling ILD (interstitial lung disease) ([facility])- Primary Postinflammatory pulmonary fibrosis Fibromyalgia Mylagia and myositis, unspecified Moderate episode of recurrent major depressive disorder ([facility]) Primary osteoarthritis of both knees Primary localized osteoarthrosis, lower leg Chronic hypoxemic respiratory failure ([facility]) Chronic respiratory failure 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 3b chronic kidney disease ([facility]) Advanced care planning/counseling discussion- Primary Other specified counseling Atherosclerosis of [place]lowa dee-ni' coronary artery of [place] de[place]-ni' heart without angina pectoris Carotid artery stenosis, asymptomatic, right Essential hypertension with goal blood pressure less than 140/[address] Other postprocedural status 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 3b chronic kidney disease ([facility]) Recurrent deep vein thrombosis (DVT) of both lower extremities (HCC) Chronic hypoxemic respiratory failure ([facility]) Chronic respiratory failure ELISSA (obstructive sleep apnea) Obstructive sleep apnea (adult) (pediatric) Type 2 diabetes mellitus with hemoglobin A1c goal of less than 8.0% ([facility]) Fibromyalgia Mylagia and myositis, unspecified Restless legs syndrome Restless legs syndrome (RLS) Chronic kidney disease, stage 3b ([facility]) History of pulmonary embolus (PE) Personal history of pulmonary embolism Moderate episode of recurrent major depressive disorder ([facility]) Advanced care planning/counseling discussion- Primary Other specified counseling Atherosclerosis of [place] de[place]-ni' coronary artery of [place] de[place]ni' heart without angina pectoris [place] filter in place Other postprocedural status Hypertensive [...] with long-term current use of insulin (HCC) Type 2 diabetes mellitus with stage 3b chronic kidney disease, with long-term current use of insulin (HCC)- Primary Screening mammogram for breast cancer documented in this encounter Advance Directives Documents on File Type Date Recorded Patient Intelligence Operations Expl anation POLST 03/19/2020 4:25 PM POLST [...] (no specific identity) Health Care Power of Associate Professor Of Communication Princess Staplesfany Other - (no specific identity) Health Care Power of Associate Professor Of Communication Care Teams [place] Code Enforcement Officer Relationship Specialty Start Date End Date Galdino Andujar DO [address] [place] [address] PCP - General Internal Medicine 03/08/24 documented as of this encounter
--- OUTSIDE RECORDS SUMMARY | 2024-12-09 19:27 | External Medical Summary | Summary of Care ---
Author Name Unknown Organization [facility] Address [address] [place] [address] Phone [phone] Care Team Providers Care Wound Care Technician Name Role Phone Lexii Andujar DO Primary Care Provider [phone] Reason for Visit * Reason Onset Date Comments Test Results 10/24/2024 Encounter Details Date Type Department Care Team (Late st Contact Info) Description 10/24/2024 Refill Family Practice [address] [place] [address] [place] [phone] Lexii Andujar DO [address] [place] [address] UTI (urinary tract infection)* Allergies Active Allergy Reactions Criticality Noted Date [...] this encounter (statuses as of 10/25/2024) Medications ONETOUCH DELICA LANCETS 33G MISC Check [...] Dexcom G7 Sensor Use as directed. (From [facility]) 06/01/20 Active Plavix 75 MG [...] goal of 7.0%-8.0% ([facility]) INJECT 38 UNITS UNDER THE SKIN IN THE EVENING 15 mL 5 08/20/20 24 Active Additional Information Patient taking differently: 41 Units Subcutaneous DAILY(1900), Per [facility], Reported on 10/22/2024 rOPINIRole HCl 2 MG [...] 5 09/17/20 24 Active Comfort EZ Pen [place] 31G X 8 MM (Insulin Pen Needle) [...] Pain, Severe. 90 Tablet 10/22/19 25 Active Ciprofloxacin HCl 250 MG Oral Tablet (Cipro)Indications :UTI (urinary tract infection) Take 1 Tablet by mouth in the morning and 1 Tablet before bedtime. Do all this for 5 days. Hold Tizanidine while taking Cipro. 10 Tablet 10/24/19 25 025 Active Hospital, Clinic, or Other Facility Administered [...] carotid surgery at [facility]. She states she has rx for atorvastatin and plavix to roller picker at pharmacy. 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 Medication Regimen: o Beta Faviloa Therapy: No beta-faviola o WILI Inhibitor/ARB Therapy: [...] rx evidently given by vascular, has to roller picker rx documented as of this encounter [...] mRNA, LNP-s, No Pre serve, 2-Dose Series ([employer]) 01/08/2021,12/18/2020 COVID-19, LNP-s, No Preserve , Navarro-sucrose, Ages 12+ (Pfizer) 2022,10/01/2021 COVID-19, MRNA-LNP, PF, 30 M CG/0.3 mL, 12 YRS AND ABOVE, IM (PFIZER-Comirnat) 07/31/2024,07/26/2023 Pneumococcal Conjugate Vacci ne, 20-valent ([id number]) 03/12/2022 Pneumococcal Polysaccharide PPV23 (Pneumovax) 08/22/2009,06/15/2006 RSV [...] Telephone Encounter - Shira Gross LPN - 10/25/2024 1:01 PM EST Patient is aware and will comply. Thank you * Telephone Encounter - Lexii Andujar DO - 10/24/2024 4:20 PM ESTSigned Prescriptions: Disp Refills Ciprofloxacin HCl 250 MG Oral Tablet (Cipr*10 Tab*0 Sig: Take 1 Tablet by mouth in the morning and 1 Tablet before bedtime. Do all this for 5 days. Hold Tizanidine while taking Cipro. Authorizing Provider: LEXII ANDUJAR * Telephone Encounter - Lexii Andujar DO - 10/24/2024 4:19 PM EST Patient needs to hold Tizanidine while on Cipro * Telephone Encounter - Shira Gross LPN - 10/24/2024 1:21 PM EST Patient is aware and will comply. Pharmacy confirmed. Thank you * Telephone Encounter - Shira Gross LPN - 10/24/2024 1:19 PM EST ----- Message from Lexii Andujar DO sent at 10/24/2024 1:09 PM EST ----- Patient has UTI sensitive to Cipro STart Cipro 250 mg two times a day for 5 days Hgba1c has improved. All other labs are stable. documented in this encounter Plan of Treatment Upcoming Encounters Date Type Department Care Team (Late st Contact Info) Description 11/08/2024 1:00 PM EST PulmDiagnostic Pulmonary Function Lab, [facility] 132 [facility] [place] [address] [place], [place] 132 [facility] [place] [address] 11/08/2024 2:30 PM EST Imaging Radiology [address] 132 [facility] [place] [phone] 12/19/2024 1:30 PM EDT Office Visit Pulmonary Medicine, [facility] [address] [facility] [place] [address] Jhonny Holley MD [address] [place] [address] 12/20/2024 11:20 AM EDT Office Visit Family Practice [address] [place] [address] 293 [facility] [place] [address] Lexii Andujar DO 293 [facility], [place] [address] 02/05/2025 1:00 PM EDT Office Visit Family Practice [address] [place] [address] [facility] [place] [phone] Lexii Andujar, 293 [facility] [place] [address] 06/13/2025 1:30 PM EDT Imaging Radiology [facility] [address] [facility], [place] [address] [place] [phone] Scheduled Procedures Name Priority Associated Diagnoses Date/Ti me COLONOSCOPY FLEXIBLE PROXIMAL DIAGNOSTIC Recall Colon cancer screening Health Maintenance Due Date Last Done Comments Cologuard 2000 Fecal Occult Blood Test 2000 Sigmoidoscopy 2000 CKD PHOS USE SMARTSET 00284 12/26/2024 04/0 10/2023, 02/11/2023, 01/07/2022, Additional history exists Adult Wellness Visit 02/13/2025 02/14/2024, 08/05/20 22 GFR 04/21/2025 10/22/2024, 12/11/2023, 06/26/2024, Additional history exists HbA1c 04/21/2025 10/22/2024, 1009/2023, 03/26/2024, Additional history exists Mammogram 06/12/2025 06/12/2024, 05/27, 04/21/2023, Additional history exists Diabetic Eye Exam 07/06/2025 07/06/2024, , 07/06/2024, Additional history exists Albumin/Creatinine Ratio 10/22/2025 025, 08/05/2023, 11/01/2022, Additional history exists CKD HGB USE SMARTSET 72391 10/22/202510/22, 10/22/2024, 10/11/2024, Additional history exists Depression [...] 1 and CKD stage 3 ([facility])- Primary Fibromyalgia Mylagia and myositis, unspecified Primary [...] recurrent major depressive disorder ([facility]) Advanced care planning/counseling discussion Other specified counseling ILD (interstitial lung disease) ([facility])- Primary Postinflammatory pulmonary fibrosis Fibromyalgia Mylagia and myositis, unspecified Moderate episode of recurrent major depressive disorder (HCC) Primary osteoarthritis of both knees Primary localized osteoarthrosis, lower leg Chronic hypoxemic respiratory failure (HCC) Chronic respiratory failure 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 3b chronic kidney disease (HCC) Advanced care planning/counseling discussion- Primary Other specified counseling Atherosclerosis of [place] coronary artery of [place] heart without angina pectoris Carotid artery stenosis, asymptomatic, right Essential hypertension with goal blood pressure less than 140/[address] [address] Other postprocedural status Hypertensive [...] discussion- Primary Other specified counseling Atherosclerosis of [place] coronary artery of [place] heart without angina pectoris [place] filter in place Other postprocedural status Hypertensive [...] with long-term current use of insulin (HCC) UTI (urinary tract infection)- Primary Urinary tract infection, site not specified Screening mammogram for breast cancer documented in this encounter Advance Directives Documents on File Type Date Recorded Patient Stockroom Associate Expl anation POLST 03/19/2020 4:25 PM [...] (no specific identity) Health Care Power of Bark Fitter Princess Allen Other - (no specific identity) Health Care Power of Bark Fitter Care Teams Wound Care Technician Relationship Specialty Start Date End Date Lexii Andujar DO [address] [place] [address] PCP - General Internal Medicine 03/08/24 documented as of this encounter
--- OUTSIDE RECORDS SUMMARY | 2024-12-09 19:27 | External Medical Summary ---
Author Name Unknown Address Unknown Organization K01:[facility] [address] [place] [address] Laboratory Report Ordering Provider Test Date Status JAG SHULTZ 10/22/2024 14:54:26 Final Observation Date Value Abnormality Reference (Units ) Status Magnesium 10/22/2024 14:54:26 2.2 1.5-2.6 (m g/dL) Final Performing Location [facility] [address] [place] [address]
--- OUTSIDE RECORDS SUMMARY | 2024-12-09 19:27 | External Medical Summary | Summary of Care ---
Author Name Unknown Organization [facility] Address [address] [place] [address] Phone [phone] Care Team Providers Care Underwater Photographer Name Role Phone Lexii Andujar DO Primary Care Provider [phone] Reason for Visit * Reason Comments eRx-Medication Refill Encounter Details Date Type Department Care Team (Late st Contact Info) Description 10/15/2024 Refill [facility], [facility] [address] [place] [address] Lexii Andujar DO [address] [place], [place] [id number] Restless legs syndrome; Anxiety state; Gastroesophageal reflux disease with esophagitis without hemorrhage; Fibromyalgia; Major depressive disorder, recurrent, moderate (HCC); 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 Check blood sugars 3-4 times daily 180 Each 5 018 Active oxygen GASIndications:OS A (obstructive sleep apnea) Use 3 L/min(Oxygen) as directed continuous. 020 Active CPAP every night at bedtime. Active Acetaminophen 500 MG Oral Tablet (Tylenol) Take 2 Tablets by mouth in the morning and 2 Tablets at noon and 2 Tablets before bedtime. 100 Tablet 023 Active DIURETIC TITRATION PLAN If no improvement on day 3, contact heart failure managing provider. 1 Each 023 Active NovoLOG FlexPen 100 UNIT/ML Subcutaneous Solution Pen-injector (insulin aspart)Indication s:Type 2 diabetes mellitus with hemoglobin A1c goal of 7.0%-8.0% ([facility]) Inject 8 units with breakfast and 6 units lunch and 10 units with dinner + sliding scale 1 units for every 30 units BG > 150. 150 mL 3 023 Active Dexcom G7 Sensor Use as directed. (From [facility]) 023 Active Plavix 75 MG Oral Tablet Take 1 Tablet by mouth in the morning. 023 Active Aspirin 81 MG Oral Tablet Delayed Release Take 1 Tablet by mouth in the morning. Active Ferrous Sulfate 325 (65 Fe) MG Oral Tablet (Feosol)Indicatio ns:Anemia Take 1 Tablet by mouth in the morning and 1 Tablet before bedtime. 024 Active Lizzette Verantoine In Vitro Strip (Glucose Blood)Indications :Hypoglycemia,Typ e 2 diabetes mellitus with stage 3b chronic kidney disease, with long-term current use of insulin (HCC) Use up to 4 times a day E11.9 in case of dexcom failure 100 Strip 11 024 Active Cholecalciferol 25 MCG (1000 UT) Oral Capsule Take 1 capsule by mouth once daily in the morning 30 Capsule 5 024 Active Dicyclomine HCl 20 MG Oral Tablet (Bentyl)Indicatio ns:Irritable bowel syndrome, unspecified type Take 1 Tablet by mouth 4 times a day as needed for Cramping. 180 Tablet 3 024 Active Mounjaro 7.5 MG/0.5ML Subcutaneous Solution Pen-injector (Tirzepatide)Aurea cations:Type 2 diabetes mellitus with stage 3b chronic kidney disease, with long-term current use of insulin (HCC) Inject 7.5 mg under the skin once a week. 2 mL 11 024 Active Ondansetron HCl 4 MG Oral Tablet (Zofran)Indicatio ns:Dizziness and giddiness Take 1 Tablet (4 mg) by mouth every 6 hours as needed for Nausea. 90 Tablet 6 024 Active Levothyroxine Sodium 200 MCG Oral Tablet (Levoxyl)Indicati ons:Postsurgical hypothyroidism TAKE 1 TABLET BY MOUTH ONCE DAILY IN THE MORNING 90 Tablet 1 024 Active Meclizine HCl 12.5 MG Oral Tablet (Antivert)Indicat ions:Vertigo Take 1 Tablet by mouth 3 times a day as needed for Dizziness. 30 Tablet 1 024 Active Gabapentin 300 MG Oral Capsule (Neurontin)Indica tions:Lumbar radiculopathy,Fib romyalgia Take 1 Capsule by mouth in the morning and 1 Capsule before bedtime. 60 Capsule 5 024 Active Tresiba FlexTouch 100 UNIT/ML Subcutaneous Solution Pen-injector (Insulin Degludec)Indicati ons:Type 2 diabetes mellitus with hemoglobin A1c goal of 7.0%-8.0% ([facility]) INJECT 38 UNITS UNDER THE SKIN IN THE EVENING 15 mL 5 024 Active Additional Information Patient taking differently: 41 Units Subcutaneous DAILY(1900), Per [facility], Reported on 10/11/2024 rOPINIRole HCl 2 MG Oral Tablet (Requip)Indicatio ns:Restless legs syndrome TAKE 1 TABLET BY MOUTH AT BEDTIME 30 Tablet 5 024 Active Magnesium Oxide 400 MG Oral TabletIndications :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 Morning and noon. 30 Tablet 2 Active traMADol HCl 50 MG Oral Tablet (Ultram)Indicatio ns:Primary osteoarthritis of both knees,Lumbar radiculopathy Take 1 Tablet by mouth every 8 hours as needed for Pain, Severe. 90 Tablet 024 Active Rosuvastatin Calcium 5 MG Oral Tablet (Crestor)Indicati ons:Dyslipidemia Take 1 Tablet by mouth in the morning. 30 Tablet 5 024 Active Comfort EZ Pen [place] 31G X 8 MM (Insulin Pen Needle) use five times daily 500 Each 3 024 Active Fluticasone Propionate 50 MCG/ACT Nasal Suspension (Flonase) Administer 2 Sprays into nostril in the morning and 2 Sprays before bedtime. 16 g 3 025 Active tiZANidine HCl 2 MG Oral Tablet (Zanaflex)Indicat ions:Spasm of muscle Take 1 Tablet by mouth every 8 hours as needed for Muscle spasms. 21 Tablet 025 Active Eliquis 2.5 MG Oral Tablet (Apixaban) TAKE 1 TABLET BY MOUTH IN THE MORNING AND AT BEDTIME 60 Tablet 11 025 Active clonazePAM 0.5 MG Oral Tablet (KlonoPIN)Indicat ions:Restless legs syndrome,Anxiety state TAKE 1 TABLET BY MOUTH THREE TIMES A DAY 84 Tablet 025 Active Senna-Time S 8.6-50 MG Oral Tablet (senna-docusate) TAKE 1 TABLET BY MOUTH IN THE MORNING AND AT BEDTIME 60 Tablet 6 025 Active Omeprazole 20 MG Oral Capsule Delayed Release (PriLOSEC)Indicat ions:Gastroesopha geal reflux disease with esophagitis without hemorrhage TAKE 1 CAPSULE BY MOUTH ONCE DAILY IN THE MORNING 30 Capsule 5 025 Active DULoxetine HCl 60 MG Oral Capsule Delayed Release Particles (Cymbalta)Indicat ions:Fibromyalgia ,Major depressive disorder, recurrent, moderate (HCC) TAKE 1 CAPSULE BY MOUTH ONCE DAILY IN THE MORNING 30 Capsule 5 025 Active Potassium Chloride Ayleen ER 20 MEQ Oral Tablet Extended ReleaseIndication s:Benign hypertensive heart and kidney disease with diastolic CHF, NYHA class 1 and CKD stage 3 (HCC),Chronic diastolic congestive heart failure (HCC) TAKE 1 TABLET BY MOUTH IN THE MORNING AND AT BEDTIME 60 Tablet 5 025 Active traZODone HCl 50 MG Oral Tablet (Desyrel) TAKE 1 TABLET BY MOUTH AT BEDTIME 30 Tablet 5 025 Active Apixaban 2.5 MG Oral Tablet (Eliquis) Take 1 Tablet by mouth in the morning and 1 Tablet before bedtime. 60 Tablet 11 024 2024 Discontinued Senna-Time S 8.6-50 MG Oral Tablet (senna-docusate) TAKE 1 TABLET BY MOUTH IN THE MORNING AND AT BEDTIME 60 Tablet 5 024 2024 Discontinued Potassium Chloride Ayleen ER 20 MEQ Oral Tablet Extended ReleaseIndication s:Benign hypertensive heart and kidney disease with diastolic CHF, NYHA class 1 and CKD stage 3 ([facility]),Chronic diastolic congestive heart failure (HCC) TAKE 1 TABLET BY MOUTH IN THE MORNING AND AT BEDTIME 60 Tablet 5 024 2024 Discontinued DULoxetine HCl 60 MG Oral Capsule Delayed Release Particles (Cymbalta)Indicat ions:Fibromyalgia ,Major depressive disorder, recurrent, moderate ([facility]) TAKE 1 CAPSULE BY MOUTH ONCE DAILY IN THE MORNING 30 Capsule 5 024 2024 Discontinued Omeprazole 20 MG Oral Capsule Delayed Release (PriLOSEC)Indicat ions:Gastroesopha geal reflux disease with esophagitis without hemorrhage TAKE 1 CAPSULE BY MOUTH ONCE DAILY IN THE MORNING 30 Capsule 5 024 2024 Discontinued traZODone HCl 50 MG Oral Tablet (Desyrel) Take 1 Tablet by mouth at bedtime. 30 Tablet 5 024 2024 Discontinued clonazePAM 0.5 MG Oral Tablet (KlonoPIN)Indicat ions:Restless legs syndrome,Anxiety state TAKE 1 TABLET BY MOUTH THREE TIMES A DAY 84 Tablet 024 2024 Discontinued Hospital, Clinic, or Other Facility Administered Medication Ordered Dose Route Frequency Start Date End Date Status Albuterol Sulfate (Proventil) (2.5 MG/3ML) 0.083% inhalation solution 2.5 mgIndications:ILD (interstitial lung disease) ([facility]),Chronic respiratory failure with hypoxia (HCC) 2.5 mg NEBULIZER PRN 10/11/2024 10/11/2025 Active Albuterol Sulfate (Proventil) (5 MG/ML) 0.5% *conc* inhalation solution 2.5 mgIndications:ILD (interstitial lung disease) (HCC),Chronic respiratory failure with hypoxia (HCC) 2.5 mg NEBULIZER PRN 10/11/2024 10/11/2025 Active documented as of this encounter (statuses as of 10/16/2024) Active Problems Problem Noted Date Diagnosed Date [...] by vascular, reports upcoming carotid surgery at [facility]. She states she has rx for atorvastatin and plavix to [facility] at pharmacy. 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 Vasculitis 11/07/2019 Hypertensive [...] 8:05 AM EDT): Home PT to start Rhodes filter in place 08/19/2014 History of pulmonary [...] rx evidently given by vascular, has to [employer] rx documented as of this encounter (statuses as of 10/16/2024) Resolved Problems Problem Noted Date Diagnosed Date [...] as of this encounter (statuses as of 10/16/2024) Immunizations Name Administration Dates Next Due COVID-19 mRNA, LNP-s, No Pre serve, 2-Dose Series ([employer]) 01/08/2021,12/18/2020 COVID-19, LNP-s, No Preserve , Navarro-sucrose, Ages 12+ (Pfizer) 2022,10/01/2021 COVID-19, MRNA-LNP, PF, 30 M CG/0.3 mL, 12 YRS AND ABOVE, IM (PFIZER-Comirnat) 07/31/2024,07/26/2023 Pneumococcal Conjugate Vacci ne, 20-valent (Ghilggo06) 03/12/2022 Pneumococcal Polysaccharide PPV23 (Pneumovax) 08/22/2009,06/15/2006 RSV [...] Answer Date Recorded PHQ Adult Total Score 10 09/07/2024 Hunger Vital Sign Answer Date Recorded Within the past 12 months, y ou worried that your food would run out before you got the money to buy more. Never true 02/14/20 24 Within the past 12 months, t he food you bought just didn't last and you didn't have money to get more. Never true 02/14/2024 Childcare Answer Date Recorded Do you feel overwhelmed with taking care of a child, family member or friend? No 02/14/2024 Does your family need help f inding childcare? (Household - for ages 0-17 years) Not on file 02/14/2024 Clothing Answer Date Recorded Have you been unable to get clothing when it was really needed? No 02/14/2024 Is your family able to get c lothes or diapers when needed? (Household - for ages 0-17 years) Not on file 02/14/2024 Personal Safety Answer Date Recorded Do you feel unsafe or have concerns for your saf ety? No 02/14/2024 Do you have concerns for you r family's safety? (Household - for ages 0-17 years) Not on file 02/14/2024 Utilities Answer Date Recorded Do you have trouble paying y our heating, water, or electric bill? Yes 02/14/2024 Is your family able to pay t he heat, water, or electric bill? (Household - for ages 0-17 years) Not on file 02/14/2024 Does your family have access to good internet? (Household - for ages 0-17 years) Not on file 02/14/2024 Employment Status Answer Date Recorded Are you unemployed or without regular income? No 02/14/2024 Does the household have a re gular source of income? (Household - for ages 0-17 years) Not on file 02/14/2024 Social Connections Answer Date Recorded How often do you feel lonely or isolated from th ose around you? Never 02/14/2024 Financial Resource Strain Answer Date R ecorded Do you have any trouble payi ng for your medications, or do you think you might in the future? No 02/14/2024 Does your family have troubl e paying for medicine? (Household - for ages 0-17 years) Not on file 02/14/2024 Transportation Needs Answer Date Record ed READ ONLY Do you have troubl e getting a ride to medical visits or work? Never True 02/14/2024 Does your family have a hard time getting a ride to doctors visits? (Household - for ages 0-17 years) Not on file 02/14/2024 Has lack of transportation k ept you from medical appointments, meetings, work, or from getting things needed for daily living? Check all that apply. (Adult - for ages 18 years and over) Not on file 02/14/2024 Do you (or your family) have trouble finding or paying for a ride (transportation)? (Household - for ages 0-17 years) Not on file 02/14/2024 Housing Stability Answer Date Recorded Do you currently live in a s helter or have no steady place to sleep at night? No 02/14/2024 READ ONLY Do you think you a re at risk of becoming homeless? No 02/14/2024 Does your family worry about paying for your home or becoming homeless? (Household - for ages 0-17 years) Not on file 0 02/14/2024 Are you homeless or worried that you might be in the future? (Adult - for ages 18 years and over) Not on file Are you (or your family) jessie eless or worried that you might be in the future? (Household - for ages 0-17 years) Not on file Food Insecurity Answer Date Recorded Do you need food for this week? No 02/14/2024 Are you able to get enough f ood for your family? (Household - for ages 0-17 years) Not on file 02/14/2024 Does your family need food t his week? (Household - for ages 0-17 years) Not on file 02/14/2024 Do you always have enough fo od for your family? (Household - for ages 0-17 years) Not on file 02/14/2024 Comments No Sex and Gender Information Value [...] Telephone Encounter - Lexii Andujar DO - 10/16/2024 9:03 AM ESTSigned Prescriptions: Disp Refills Eliquis 2.5 MG Oral Tablet (Apixaban) 60 Tab*11 Sig: TAKE 1 TABLET BY MOUTH IN THE MORNING AND AT BEDTIMEAuthorizing Provider: LEXII ANDUJAR clonazePAM 0.5 MG Oral Tablet (KlonoPIN) 84 Tab*0 Sig: TAKE 1 TABLET BY MOUTH THREE TIMES A DAYAuthorizing Provider: LEXII ANDUJAR Senna- Time S 8.6-50 MG Oral Tablet (senna-*60 Tab*6 Sig: TAKE 1 TABLET BY MOUTHIN THE MORNING AND AT BEDTIMEAuthorizing Provider: LEXII ANDUJAR Omeprazole 20 MG Oral Capsule Delayed Rele*30 Cap*5 Sig: TAKE 1 CAPSULE BY MOUTH ONCE DAILY IN THE MORNINGAuthorizing Provider: LEXII ANDUJAR DULoxetine HCl 60 MG Oral Capsule Delayed *30 Cap*5 Sig: TAKE 1 CAPSULE BY MOUTH ONCE DAILY IN THE MORNINGAuthorizing Provider: LEXII ANDUJAR Potassium Chloride Ayleen ER 20 MEQ Oral Tab*60 Tab*5 Sig: TAKE 1 TABLET BY MOUTH IN THE MORNING AND AT BEDTIMEAuthorizing Provider: LEXII ANDUJAR traZODone HCl 50 MGOral Tablet (Desyrel) 30 Tab*5 Sig: TAKE 1 TABLET BY MOUTH AT BEDTIMEAuthorizing Provider: LEXII ANDUJAR * Telephone Encounter - Lexii Andujar DO - 10/16/2024 9:02 AM EST I have reviewed the patients controlled substance dispensing history in the Prescription Drug Monitoring Program in compliance with the [facility] regulations before prescribing a controlled [...] U Negative Oxycodone Screen, U Positive (A) Valid Interpretation Normal Creatinine, U 30 Narrative Cutoff [...] results can be found in Results Review. Clonazepam due 10/18/2024 Will renew medications today so that pill packs can be prepared. * Telephone Encounter - Ingrid Rene LPN - 10/15/2024 1:18 PM ESTPending Prescriptions: Disp Refills Eliquis 2.5 MG Oral Tablet [Pharmacy Med N*60 Tab*11 Sig: TAKE 1 TABLET BY MOUTH IN THE MORNING AND AT BEDTIME clonazePAM 0.5 MG Oral Tablet [Pharmacy Me*84 Tab*0 Sig: TAKE 1 TABLET BY MOUTH THREE TIMES A DAY Senna-Time S 8.6-50 MG Oral Tablet [Pharma*60 Tab*6 Sig: TAKE 1 TABLET BY MOUTH IN THE MORNING AND AT BEDTIME Omeprazole 20 M G Oral Capsule Delayed Rele*30 Cap*5 Sig: TAKE 1 CAPSULE BY MOUTH ONCE DAILY IN THE MORNING DULoxetine HCl 60 MG Oral Capsule Delayed *30 Cap*5 Sig: TAKE 1 CAPSULE BY MOUTH ONCE DAILY IN THE MORNING Potassium Chloride Ayleen ER 20 MEQ Oral Tab*60 Tab*5 Sig: TAKE 1 TABLET BY MOUTH IN THE MORNING AND AT BEDTIME traZODone HCl 50 MG Oral Tablet [Pharmacy *30 Tab*5 Sig: Take 1 Tablet by mouth at bedtime. * Telephone Encounter - Ingrid Rene LPN - 10/15/2024 1:17 PM EST Did you pend patient's preferred pharmacy and medication before forwarding?yes Pharmacy: [facility] [address] Pending Prescriptions: Disp Refills Eliquis 2.5 MG Oral Tablet (Apixaban) [Ph*60 Tab*11 Sig: TAKE 1 TABLET BY MOUTH IN THE MORNING AND AT BEDTIME clonazePAM 0.5 MG Oral Tablet (KlonoPIN) *84 Tab*0 Sig: TAKE 1 TABLET BY MOUTH THREE TIMES A DAY Senna-Time S 8.6-50 MG Oral Tablet (senna*60 Tab*6 Sig: TAKE 1 TABLET BY MOUTH IN THE MORNING AND AT BEDTIME Omeprazole 20 MG Oral Capsule Delayed Rel*30 Cap*5 Sig: TAKE 1 CAPSULE BY MOUTH ONCE DAILY IN THE MORNING DULoxetine HCl 60 MG Oral Capsule Delayed*30 Cap*5 Sig: TAKE 1 CAPSULE BY MOUTH ONCE DAILY IN THE MORNING Potassium Chloride Ayleen ER 20 MEQ Oral Ta*60 Tab*5 Sig: TAKE 1 TABLET BY MOUTH IN THE MORNING AND AT BEDTIME traZODone HCl 50 MG Oral Tablet (Desyrel)*30 Tab*5 Sig: TAKE 1 TABLET BY MOUTH AT BEDTIME Last Visit: Visit date not found (in office), 07/12/2023 (telemedicine) Next Visit: Visit date not found If no future appointments scheduled, and last appointment is greater than a year ago, please schedule patient for a follow-up appointment Last date the medication was ordered: Is this request for a controlled substance?Yes, What was the last refill date 60 w/ quantity 09/20/24 and dosage 0.5mg and Urine Drug Screen Not completed Urine [...] U Negative Oxycodone Screen, U Positive (A) Valid Interpretation Normal Creatinine, U 30 Narrative Cutoff [...] Results Component Value Date/Time CREAT 1.8 (H) 09/17/2024 02:20 PM CREAT 1.69 09/07/2023 12:00 AM CREAT 2.0 (H) 05/06/2020 08:46 AM POTASSIUM 5.0 09/17/2024 02:20 PM POTASSIUM 3.9 07/25/2023 12:00 AM POTASSIUM 4.0 05/06/2020 08:46 AM TSH 1.36 12/22/2023 11:39 AM TSH 5.35 (H) 05/06/2020 08:46 AM LDL 66 10/11/2024 07:05 AM LDL 60 11/07/2023 04:43 PM LDL UNINTERPRETABLE RESULT 03/14/2019 01:54 PM LDL 126 03/14/2019 01:54 PM ALT 11 09/17/2024 02:20 PM ALT 27 05/06/2020 08:46 AM HGBA1C 7.8 (H) 06/26/2024 02:30 PM HGBA1C 7.5 (H) 09/20/2023 12:00 AM HGBA1C 7.3 (H) 01/23/2020 11:11 AM Ingrid Rene LPN [facility] 10/15/2024,1:17 PM * Telephone Encounter - Pop Greer [facility] - 10/15/2024 11:10 AM EST Pending Prescriptions: Disp Refills Eliquis 2.5 MG Oral Tablet [Pharmacy Med N*60 Tab*11 Sig: TAKE 1 TABLET BY MOUTH IN THE MORNING AND AT BEDTIME clonazePAM 0.5 MG Oral Tablet [Pharmacy Me*84 Tab*0 Sig: TAKE 1 TABLET BY MOUTH THREE TIMES A DAY Senna-Time S 8.6-50 MG Oral Tablet [Pharma*60 Tab*6 Sig: TAKE 1 TABLET BY MOUTH IN THE MORNING AND AT BEDTIME Omeprazole 20 MG Oral Capsule Delayed Rele*30 Cap*5 Sig: TAKE 1 CAPSULE BY MOUTH ONCE DAILY IN THE MORNING DULoxetine HCl 60 MG Oral Capsule Delayed *30 Cap*5 Sig: TAKE 1 CAPSULE BY MOUTH ONCE DAILY IN THE MORNING Potassium Chloride Ayleen ER 20 MEQ Oral Tab*60 Tab*5 Sig: TAKE 1 TABLET BY MOUTH IN THE MORNING AND AT BEDTIME traZODone HCl 50 MG Oral Tablet [Pharmacy *30 Tab*5 Sig: Take 1 Tablet by mouth at bedtime. documented in this encounter Plan of Treatment Upcoming Encounters Date Type Department Care Team (Late st Contact Info) Description 10/22/2024 1:40 PM EST Office Visit Family Practice [address] [facility], [address] [place] [address] Lexii Andujar, DO [address] [place] [address] 11/08/2024 1:00 PM EST PulmDiagnostic Pulmonary Function Lab, [facility] [address] [facility] [place] [address] [address], [address] [facility] [place] [id number] 11/08/2024 1:30 PM EST PulmDiagnostic Pulmonary Function Lab, [facility] [address] [facility] [place] [address] [address], [address] [facility] [place] [address] 11/08/2024 2:30 PM EST Imaging Radiology [address] [facility] [place] [phone] 12/19/2024 1:30 PM EDT Office Visit Pulmonary Medicine, [facility] [address] [facility] [place] [address] Jhonny Holley MD [address] [place] [address] [address] 06/13/2025 1:30 PM EDT Imaging Radiology [address] [facility] [id number] Scheduled Procedures Name Priority Associated Diagnoses Date/Ti me COLONOSCOPY FLEXIBLE PROXIMAL DIAGNOSTIC Recall Colon cancer screening Health Maintenance Due Date Last Done Comments Cologuard 2000 Fecal Occult Blood Test 2000 Sigmoidoscopy 2000 Albumin/Creatinine Ratio 08/05/2024 023, 11/01/2022, 01/07/2022, Additional history exists Diabetic Foot Exam 10/04/2024 10/04/2023, 0 11/01/2022, 01/07/2022, Additional history exists TSH 12/21/2024 12/22/2023, 09/26, 11/01/2022, Additional history exists HbA1c 12/25/2024 06/26/2024, 070 09/2023, 12/22/2023, Additional history exists CKD PHOS USE SMARTSET 81750 12/26/2024 040 10/2023, 02/11/2023, 01/07/2022, Additional history exists Adult Wellness Visit 02/13/2025 02/14/2024, 08/05/20 22 GFR 03/18/2025 09/17/2024, 1009/2023, 05/18/2024, Additional history exists Mammogram 06/12/2025 06/12/2024, 05/27, 04/21/2023, Additional history exists Diabetic Eye Exam 07/06/2025 07/06/2024, , 07/06/2024, Additional history exists Depression Monitoring 09/07/2025 09/07/2024, 024 CKD HGB USE SMARTSET 31694 10/11/202510/11, 10/11/2024, 09/17/2024, Additional history exists Colonoscopy 02/17/2026 02/18/2016, 01/25, [...] CKD stage 3 ([facility])- Primary Fibromyalgia Mylagia and myositis, [...] depressive disorder ([facility]) Advanced care planning/counseling discussion Other specified counseling ILD (interstitial lung disease) ([facility])- Primary Postinflammatory pulmonary fibrosis Fibromyalgia Mylagia and myositis, unspecified Moderate episode of recurrent major depressive disorder (HCC) Primary osteoarthritis of both knees Primary localized osteoarthrosis, lower leg Chronic hypoxemic respiratory failure (HCC) Chronic respiratory failure 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 3b chronic kidney disease ([facility]) Advanced care planning/counseling discussion- Primary Other specified counseling Atherosclerosis of [place] coronary artery of [place] heart without angina pectoris Carotid artery stenosis, asymptomatic, right Essential hypertension with goal blood pressure less than 140/[address] Other postprocedural status Hypertensive [...] than 8.0% ([facility]) Fibromyalgia Mylagia and myositis, unspecified Restless legs syndrome Restless legs syndrome (RLS) Chronic kidney disease, stage 3b ([facility]) History of pulmonary embolus (PE) Personal history of pulmonary embolism Moderate episode of recurrent major depressive disorder ([facility]) Advanced care planning/counseling discussion- Primary Other specified counseling Atherosclerosis of tan[place] coronary artery of tanacross heart without angina pectoris Frank filter in [...] unspecified hyperlipidemia DM peripheral angiopathy ([facility]) Type II or unspecified type [...] syndrome (RLS) Anxiety state Anxiety state, unspecified Gastroesophageal reflux disease with esophagitis without hemorrhage Fibromyalgia Mylagia and myositis, unspecified Major depressive disorder, recurrent, moderate (HCC) Major depressive disorder, recurrent episode, moderate Benign hypertensive heart and kidney disease with diastolic CHF, NYHA class 1 and CKD stage 3 (HCC) Chronic diastolic congestive heart failure (HCC) Chronic diastolic heart failure Screening mammogram for breast cancer documented in this encounter Advance Directives Documents on File Type Date Recorded Patient Building Principal Expl anation POLST 03/19/2020 4:25 PM POLST [...] (no specific identity) Health Care Power of Airport Ramp Agent Princess Allen Other - (no specific identity) Health Care Power of Airport Ramp Agent Care Teams Underwater Photographer Relationship Specialty Start Date End Date Lexii Andujar DO [address] [place] [address] PCP - General Internal Medicine 03/08/24 documented as of this encounter
--- OUTSIDE RECORDS SUMMARY | 2024-12-09 19:27 | External Medical Summary ---
Author Name Unknown Address Unknown Organization [id number]:[facility] [place] [address] [place] [address] Laboratory Report Ordering Provider Test Date Status JAG SHULTZ 10/22/2024 14:54:26 Final Observation Date Value Abnormality Reference (Units ) Status Parathyrin.intact [Mass/volume] in Serum or Plasma 10/22/2024 14:54:26 71 Above high normal 15-65 (pg/mL) Final Performing Location [facility] [place] [address] [place] [address]
--- OUTSIDE RECORDS SUMMARY | 2024-12-09 19:27 | External Medical Summary ---
Author Name Unknown Address Unknown Organization [id number]:[facility] [place] [address] [place] [address] Laboratory Report Ordering Provider Test Date Status JAG SHULTZ 10/22/2024 14:54:26 Final Observation Date Value Abnormality Reference (Units ) Status HbA1C 10/22/2024 14:54:26 7.1 Above high normal 4. 0-5.6 (%) Final The use of HbA1c to monitor glycemic status is based on normal hemoglobin and HbA composition. This test should not be used in patients with abnormal hemoglobin that affects the half life of the red blood cell or the in vivo glycation rates. Glucose, estimated average 10/22/2024 14:54:26 157 Above high normal <126 (mg/dL) Adrián astorga Performing Location [facility] [place] - [address] [place] [address]
--- OUTSIDE RECORDS SUMMARY | 2024-12-09 19:27 | External Medical Summary | Summary of Care ---
Author Name Unknown Organization [facility] Address [address] [place] [address] Phone [phone] Care Team Providers Care Leading Firefighter Name Role Phone PratimaGaldino DO Primary Care Provider [phone] Encounter Details Date Type Department Care Team (Latest Contact Info) Description 10/22/2024 Medication Management [facility] [address], [place] [id number] Frances Ellis, [facility] [address] [place] [address] Referred for management of medication therapy* Allergies Active Allergy Reactions Criticality Noted Date [...] as of this encounter (statuses as of 10/30/2024) Medications ONETOUCH DELICA LANCETS 33G MISC Check [...] Use as directed. (From [facility]) 06/01/20 Active Plavix 75 MG Oral [...] ([facility]) INJECT 38 UNITS UNDER THE SKIN IN THE EVENING 15 mL 5 08/20/20 24 Active Additional Information Patient taking differently: 41 Units Subcutaneous DAILY(1900), Per MTDM, Reported on 10/29/2024 rOPINIRole HCl 2 MG [...] 5 09/17/20 24 Active Comfort EZ Pen [place] 31G X 8 MM (Insulin Pen [...] ounces of water or juice.. 510 g 10/22/19 25 Active tiZANidine HCl 4 MG [...] as of this encounter (statuses as of 10/30/2024) Active Problems Problem Noted Date Diagnosed Date [...] by vascular, reports upcoming carotid surgery at [facility]. 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 Atherosclerosis of [place] co ronary artery without angina pectoris [...] BMP o Pro-BNP Additional Comments: o Stable Assessment & Plan (03/20/2023 8:08 AM EDT): [...] 8:05 AM EDT): Home PT to start [place] filter in place 08/19/2014 History of pulmonary [...] as of this encounter (statuses as of 10/30/2024) Resolved Problems Problem Noted Date Diagnosed Date [...] as of this encounter (statuses as of 10/30/2024) Immunizations Name Administration Dates Next Due COVID-19 mRNA, LNP-s, No Pre serve, 2-Dose Series (Kukupia) 01/08/2021,12/18/2020 COVID-19, LNP-s, No Preserve , Navarro-sucrose, Ages 12+ (Pfizer) 2022,10/01/2021 COVID-19, MRNA-LNP, PF, 30 M CG/0.3 mL, 12 YRS AND ABOVE, IM (PFIZER-Comirnat) 07/31/2024,07/26/2023 Pneumococcal Conjugate Vacci ne, 20-valent ([id number]) 03/12/2022 Pneumococcal Polysaccharide PPV23 (Pneumovax) 08/22/2009,06/15/2006 RSV [...] this encounter Progress Notes * Frances Ellis, [facility] - 10/29/2024 4:57 PM EST Stephanie Camp is a 69 year old female. Objective: Review of patient's allergies indicates: Allergen Reactions Bupropion Other reaction(s): Recurrent falls as per patient Heparin Heparin Induced Thrombocytopenia Jardiance [Empagliflozin] Other (Please comment) 3 yeast infections in 6 weeks after starting Codeine hallucination Farxiga [Dapagliflozin] Other (Please comment) Yeast infection Hay Fever [Pollen] Hydrocodone Neuro complications (Please comment) Morphine And Codeine Hallucinations Tetanus Toxoid Other (Please comment) Passed out Current Outpatient Medications - WARNING: List may be incomplete due to filtering Medication Sig Dispense Refill Polyethylene Glycol 3350 17 GM/SCOOP Oral Powder (MiraLax) Take 17 g by mouth in the morning. Dissolve one heaping tablespoon in 8 ounces of water or juice.. 510 g 3 tiZANidine HCl 4 MG Oral Tablet (Zanaflex) Take 1 Tablet by mouth every 6 hours as needed for Muscle spasms. 60 Tablet 0 traMADol HCl 50 MG Oral Tablet (Ultram) Take 1 Tablet by mouth every 8 hours as needed for Pain, Severe. 90 Tablet 0 clonazePAM 0.5 MG Oral Tablet (KlonoPIN) TAKE 1 TABLET BY MOUTH THREE TIMES A DAY 84 Tablet 0 DULoxetine HCl 60 MG Oral Capsule Delayed Release Particles (Cymbalta) TAKE 1 CAPSULE BY MOUTH ONCEDAILY IN THE MORNING 30 Capsule 5 Eliquis 2.5 MG Oral Tablet (Apixaban) TAKE 1 TABLET BY MOUTH IN THE MORNING AND AT BEDTIME 60 Tablet 11 Omeprazole 20 MG Oral Capsule Delayed Release (PriLOSEC) TAKE 1 CAPSULE BY MOUTH ONCE DAILY IN THE MORNING 30 Capsule 5 Potassium Chloride Ayleen ER 20 MEQ Oral Tablet Extended Release TAKE 1 TABLET BY MOUTH IN THE MORNING AND AT BEDTIME 60 Tablet 5 Senna-Time S 8.6-50 MG Oral Tablet (senna-docusate) TAKE 1 TABLET BY MOUTH IN THE MORNING AND AT BEDTIME 60 Tablet 6 traZODone HCl 50 MG Oral Tablet (Desyrel) TAKE 1 TABLET BY MOUTH AT BEDTIME 30 Tablet 5 Fluticasone Propionate 50 MCG/ACT Nasal Suspension (Flonase) Administer 2 Sprays into nostril in the morning and 2 Sprays before bedtime. 16 g 3 Furosemide 40 MG Oral Tablet (Lasix) Take 1.5 Tablets by mouth in the morning and 1.5 Tablets before bedtime. Morning and noon. 30 Tablet 2 Rosuvastatin Calcium 5 MG Oral Tablet (Crestor) Take 1 Tablet by mouth in the morning. 30 Tablet 5 Magnesium Oxide 400 MG Oral Tablet TAKE 1 TABLET BY MOUTH IN THE MORNING AND AT BEDTIME 60 Tablet 5 rOPINIRole HCl 2 MG Oral Tablet (Requip) TAKE 1 TABLET BY MOUTH AT BEDTIME 30 Tablet 5 Tresiba FlexTouch 100 UNIT/ML Subcutaneous Solution Pen-injector (Insulin Degludec) INJECT 38 UNITSUNDER THE SKIN IN THE EVENING (Patient taking differently: Inject 41 Units under the skin every evening. Per MTDM) 15 mL 5 Gabapentin 300 MG Oral Capsule (Neurontin) Take 1 Capsule by mouth in the morning and 1 Capsule before bedtime. 60 Capsule 5 Meclizine HCl 12.5 MG Oral Tablet (Antivert) Take 1 Tablet by mouth 3 times a day as needed for Dizziness. 30 Tablet 1 Levothyroxine Sodium 200 MCG Oral Tablet (Levoxyl) TAKE 1 TABLET BY MOUTH ONCE DAILY IN THE [id number] Tablet 1 Ondansetron HCl 4 MG Oral Tablet (Zofran) Take 1 Tablet (4 mg) by mouth every 6 hours as needed forNausea. 90 Tablet 6 Mounjaro 7.5 MG/0.5ML Subcutaneous Solution Pen-injector (Tirzepatide) Inject 7.5 mg under the skinonce a week. 2 mL 11 Dicyclomine HCl 20 MG Oral Tablet (Bentyl) Take 1 Tablet by mouth 4 times a day as needed for Cramping. 180 Tablet 3 Cholecalciferol 25 MCG (1000 UT) Oral Capsule Take 1 capsule by mouth once daily in the morning 30 Capsule 5 Ferrous Sulfate 325 (65 Fe) MG Oral Tablet (Feosol) Take 1 Tablet by mouth in the morning and 1 Tablet before bedtime. Aspirin 81 MG Oral Tablet Delayed Release Take 1 Tablet by mouth in the morning. Plavix 75 MG Oral Tablet Take 1 Tablet by mouth in the morning. NovoLOG FlexPen 100 UNIT/ML Subcutaneous Solution Pen-injector (insulin aspart) Inject 8 units withbreakfast and 6 units lunch and 10 units with dinner + sliding scale 1 units for every 30 units BG > 150. 150 mL 3 Acetaminophen 500 MG Oral Tablet (Tylenol) Take 2 Tablets by mouth in the morning and 2 Tablets at noon and 2 Tablets before bedtime. 100 Tablet 0 Ciprofloxacin HCl 250 MG Oral Tablet (Cipro) Take 1 Tablet by mouth in the morning and 1 Tablet before bedtime. Do all this for 5 days. Hold Tizanidine while taking Cipro. 10 Tablet 0 Comfort EZ Pen [place] 31G X 8 MM (Insulin Pen Needle) use five times daily 500 Each 3 OneTouch Verio In Vitro Strip (Glucose Blood) Use up to 4 times a day E11.9 in case of dexcom failure 100 Strip 11 Dexcom G7 Sensor Use as directed. (From [facility]) DIURETIC TITRATION PLAN If no improvement on day 3, contact heart failure managing provider. 1 Each0 CPAP every night at bedtime. oxygen GAS Use 3 L/min(Oxygen) as directed continuous. ONETOUCH DELICA LANCETS 33G MISC Check blood sugars 3-4 times daily 180 Each 5 Immunization History Administered Date(s) Administered COVID-19 mRNA, LNP-s, No Preserve, 2-Dose Series (Kukupia) 12/18/2020, 01/08/2021 COVID-19, LNP-s, No Preserve, Navarro-sucrose, Ages 12+ (Kukupia) 10/01/2021, 2022 COVID-19, MRNA-LNP, PF, 30 MCG/0.3 mL, 12 YRS AND ABOVE, IM (BuyItRideIt-Comirnat) 07/26/2023, 07/31/2024 Pneumococcal Conjugate Vaccine, 20-valent ([id number]) 03/12/2022 Pneumococcal Polysaccharide PPV23 (Pneumovax) 06/15/2006, 08/22/2009 RSV Vac., Bivalent, Perfusion F, Pf,0.5 Ml (Abrysvo) 02/14/2024 Season Influenza, Quad, PF, Adjuvanted, 65+ Yrs, IM (FLUAD) 06/13/2020 Seasonal Influenza Vac., MDV, IM, 0.5 mL (Fluzone) 09/04/2002, 08/07/2004, 10/19/2006, 08/14/2007, 07/04/2008, 08/01/2009, 06/15/2010, 06/28/2011, 07/07/2012, 06/13/2014 Seasonal Influenza, High Dose, Trivalent, PF, IM (Fluzone HD) 06/26/2024 Seasonal Influenza, PF, 6 M & above, IM , (FluLaval or Fluzone) 07/14/2017, 06/12/2018, 07/23/2019 Seasonal Influenza, Quadrivalent Hd (Fluzone Hd) 07/20/2021, 06/18/2022, 06/21/2023 Seasonal Influenza, Quadrivalent, No Preserve, IM 07/24/2015, 06/24/2016 Varicella Zoster Vaccine (Adult) 12/11/2015 Zoster Vaccine Recombinant (Shingrix) 11/07/2019, 05/08/2020 TMR Interventions TMR Patient Education - Safe Medication Use (Opioid Therapy): OXYCODONE TAB 5MG;TRAMADOL HCL TAB 50MG Incomplete Encounter MTPs No medication therapy recommendations to display Complete Encounter MTPs Sacroiliitis, not elsewhere classified (HCC) 1 Current Medication: traMADol HCl 50 MG Oral Tablet (Ultram) Current Medication Sig: Take 1 Tablet by mouth every 8 hours as needed for Pain, Severe. Rationale: Medication requires monitoring - Needs additional monitoring - Safety Recommendation: Self-Monitoring Status: Accepted - no CPA Needed Identified Date: 10/22/2024 Completed Date: 10/22/2024 Note: Patient on opioids and benzodiazepine. She is aware of risk of coadministration - tries to minimize use. Assessment & Plan Indication, effectiveness, safety and convenience of her medications were reviewed today. The patient's medical conditions were assessed, evaluated, and deemed meeting goals of drug therapy, with thefollowing exceptions. Additional Notes: Also adjusted insulin during diabetes visit. Takeaway Information Who was the recipient of the CMR service: beneficiary Language Template for the Patient Takeaway: [place]uran I attest that I have reviewed and updated the patient's conditions, allergies, and medications to the best of my ability. Patient provided medication list gathered by: myself Frances Huerta [facility] 10/29/2024, 4:57 PM documented in this encounter Miscellaneous Notes * MTM Personal Medication List - Frances Ellis [facility] - 10/29/2024 4:53 PM EST Medication How I take it Why I use it Prescriber Acetaminophen 500 MG Oral Tablet (Tylenol) Take 2 Tablets by mouth in the morning and 2 Tablets at noon and 2 Tablets before bedtime. Pain Self Aspirin 81 MG Oral Tablet Delayed Release Take 1 Tablet by mouth in the morning. Heart protection Self Cholecalciferol 25 MCG (1000 UT) Oral Capsule Take 1 capsule by mouth once daily in the morning General health Self clonazePAM 0.5 MG Oral Tablet (KlonoPIN) Take 1 tablet by mouth three times a day Anxiety and restless legs Galdino Andujar DO Dicyclomine HCl 20 MG Oral Tablet (Bentyl) Take 1 tablet by mouth 4 times a day as needed for cramping. Irritable bowel syndrome Galdino Andujar DO DULoxetine HCl 60 MG Oral Capsule Delayed Release Particles (Cymbalta) Take 1 capsule by mouth oncedaily in the morning Fibromyalgia Galdino Andujar DO Eliquis 2.5 MG Oral Tablet (Apixaban) Take 1 tablet by mouth in the morning and at bedtime Blood thinner Galdino Andujar DO Ferrous Sulfate 325 (65 Fe) MG Oral Tablet (Feosol) Take 1 tablet by mouth in the morning and 1 tablet before bedtime. Anemia Galdino Andujar DO Fluticasone Propionate 50 MCG/ACT Nasal Suspension (Flonase) Administer 2 sprays into nostril in the morning and 2 sprays before bedtime. Allergies Jhonny Holley MD Furosemide 40 MG Oral Tablet (Lasix) Take 1.5 tablets by mouth in the morning and 1.5 tablets before bedtime. Morning and noon. Water pill Galdino Andujar DO Gabapentin 300 MG Oral Capsule (Neurontin) Take 1 capsule by mouth in the morning and 1 capsule before bedtime. Fibromyalgia Galdino Andujar DO Levothyroxine Sodium 200 MCG Oral Tablet (Levoxyl) Take 1 tablet by mouth once daily in the morningThyroid Galdino Andujar DO Magnesium Oxide 400 MG Oral Tablet Take 1 tablet by mouth in the morning and at bedtime General health Galdino Andujar DO Meclizine HCl 12.5 MG Oral Tablet (Antivert) Take 1 tablet by mouth 3 times a day as needed for dizziness. Vertigo Galdino Andujar DO Mounjaro 7.5 MG/0.5ML Subcutaneous Solution Pen-injector (Tirzepatide) Inject 7.5 mg under the skinonce a week. Diabetes Galdino Andujar DO NovoLOG FlexPen 100 UNIT/ML Subcutaneous Solution Pen-injector (insulin aspart) Inject 8 units withbreakfast and 6 units lunch and 10 units with dinner + sliding scale 1 units for every 30 units forblood sugar > 150. Diabetes Galdino Andujar DO Omeprazole 20 MG Oral Capsule Delayed Release (PriLOSEC) Take 1 capsule by mouth once daily in the morning Acid reflux Galdino Andujar DO Ondansetron HCl 4 MG Oral Tablet (Zofran) Take 1 tablet (4 mg) by mouth every 6 hours as needed fornausea. Nausea Galdino Andujar DO Plavix 75 MG Oral Tablet Take 1 tablet by mouth in the morning. Blood thinner Galdino Andujar DO Polyethylene Glycol 3350 17 GM/SCOOP Oral Powder (MiraLax) Take 17 g by mouth in the morning. Dissolve one heaping tablespoon in 8 ounces of water or juice.. Constipation Galdino Andujar DO Potassium Chloride Ayleen ER 20 MEQ Oral Tablet Extended Release Take 1 tablet by mouth in the morning and at bedtime Low potassium Galdino Anudjar DO rOPINIRole HCl 2 MG Oral Tablet (Requip) Take 1 tablet by mouth at bedtime Restless legs syndrome Galdino Andujar DO Rosuvastatin Calcium 5 MG Oral Tablet (Crestor) Take 1 tablet by mouth in the morning. Cholesterol Galdino Andujar DO Senna-Time S 8.6-50 MG Oral Tablet (senna-docusate) Take 1 tablet by mouth in the morning and at bedtime Constipation Galdino Andujar DO tiZANidine HCl 4 MG Oral Tablet (Zanaflex) Take 1 tablet by mouth every 6 hours as needed for muscle spasms. Muscle spasms Galdino Andujar, DO traMADol HCl 50 MG Oral Tablet (Ultram) Take 1 tablet by mouth every 8 hours as needed for pain, severe. Pain Galdino Andujar DO traZODone HCl 50 MG Oral Tablet (Desyrel) Take 1 tablet by mouth at bedtime Insomnia Galdino Andujar DO Tresiba FlexTouch 100 UNIT/ML Subcutaneous Solution Pen-injector (Insulin Degludec) Inject 41 unitsunder the skin in the evening Diabetes Galdino Andujar DO * MTM To-Do-List - Frances Ellis RPh - 10/29/2024 4:52 PM EST Images from the original note were not included. What we talked about: What I should do: The importance of taking your medication as prescribed Your medicine works best when taken as prescribed. It can be hard to remember to take daily medications. Consider making it a part of your daily routine. Pair taking your medication with something you do every day, like brushing your teeth or eating a meal. Consider setting daily alarms to help remind yourself when it is time to take your medicine. Using a pill box can also help you organize your medicines. Pill boxes allow you to fill each day slot with your daily medicine and help you track when your next dose is due. What we talked about: What I should do: We discussed that the tramadol, gabapentin, and clonazepam can all cause drowsiness and confusion and increase your risk of falls Self-monitor for these symptoms and use the smallest amount possible to control your pain. documented in this encounter Plan of Treatment Upcoming Encounters Date Type Department Care Team (Late st Contact Info) Description 11/08/2024 1:00 PM EST PulmDiagnostic Pulmonary Function Lab, [facility] [address] [place] [address] [place], [address] [facility] [place] [address] 11/08/2024 2:30 PM EST Imaging Radiology [address] [place] [phone] 12/19/2024 1:30 PM EDT Office Visit Pulmonary Medicine, [facility] [address] [facility] [place] [address] Jhonny Holley MD [address] [place] [address] 12/20/2024 11:20 AM EDT Office Visit Family Practice [address] [place] [address] [address] [place] [address] Galdino Andujar, DO [address] [place] [address] 02/05/2025 1:00 PM EDT Office Visit Family Practice [address] [place] [address] [address] [place] [address] Galdino Andujar, DO [address] [facility] [address] 06/13/2025 1:30 PM EDT Imaging Radiology [address] [place] [phone] Scheduled Procedures Name Priority Associated Diagnoses Date/Ti me COLONOSCOPY FLEXIBLE PROXIMAL DIAGNOSTIC Recall Colon cancer screening Health Maintenance Due Date Last Done Comments Cologuard 2000 Fecal Occult Blood Test 2000 Sigmoidoscopy 2000 CKD PHOS USE SMARTSET 75765 12/26/2024 04/0 10/2023, 02/11/2023, 01/07/2022, Additional history [...] Additional history exists CKD HGB USE SMARTSET 71353 10/22/202510/22, 10/22/2024, 10/11/2024, Additional history exists Depression [...] stage 3 ([facility])- Primary Fibromyalgia Mylagia and myositis, unspecified Primary osteoarthritis of both knees Primary localized osteoarthrosis, lower leg Anxiety state Anxiety state, unspecified Recurrent deep vein thrombosis (DVT) of both lower extremities (HCC) Chronic hypoxemic respiratory failure ([facility]) Chronic respiratory failure 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 3b chronic kidney disease, with long-term current use of insulin ([facility]) Restless legs syndrome Restless legs syndrome (RLS) ELLIE (generalized anxiety disorder) Generalized anxiety disorder Mild episode of recurrent major depressive disorder ([facility]) Advanced care planning/counseling discussion Other specified counseling ILD (interstitial lung disease) ([facility])- Primary Postinflammatory pulmonary fibrosis Fibromyalgia Mylagia and myositis, unspecified Moderate episode of recurrent major depressive disorder ([facility]) Primary osteoarthritis of both knees Primary localized osteoarthrosis, lower leg Chronic hypoxemic respiratory failure ([facility]) Chronic respiratory failure 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 3b chronic kidney disease ([facility]) Advanced care planning/counseling discussion- Primary Other specified counseling Atherosclerosis of [place] coronary artery of [place] heart without angina pectoris Carotid artery stenosis, asymptomatic, right Essential hypertension with goal blood pressure less than 140/[address] Other postprocedural status 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 3b chronic kidney disease ([facility]) Recurrent deep vein thrombosis (DVT) of both lower extremities (HCC) Chronic hypoxemic respiratory failure ([facility]) Chronic respiratory failure ELISSA (obstructive sleep apnea) Obstructive sleep apnea (adult) (pediatric) Type 2 diabetes mellitus with hemoglobin A1c goal of less than 8.0% ([facility]) Fibromyalgia Mylagia and myositis, unspecified Restless legs syndrome Restless legs syndrome (RLS) Chronic kidney disease, stage 3b ([facility]) History of pulmonary embolus (PE) Personal history of pulmonary embolism Moderate episode of recurrent major depressive disorder ([facility]) Advanced care planning/counseling discussion- Primary Other specified counseling Atherosclerosis of [place] coronary artery of [place] heart without angina pectoris Frank filter [...] with long-term current use of insulin (HCC) Referred for management of medication therapy- Primary Encounter for long-term (current) use of other medications Screening mammogram for breast cancer documented in this encounter Advance Directives Documents on File Type Date Recorded 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
--- OUTSIDE RECORDS SUMMARY | 2024-12-09 19:27 | External Medical Summary ---
Author Name Unknown Address Unknown Organization K01:[facility] [place] - [address] [place] [address] Laboratory Report Ordering Provider Test Date Status JAG SHULTZ 10/22/2024 14:54:26 Final Observation Date Value Abnormality Reference (Units ) Status BUN 10/22/2024 14:54:26 26 Above high normal 6-20 (mg/dL) Final Creatinine 10/22/2024 14:54:26 1.8 Above high normal 0.5-1.0 (mg/dL) Final Glomerular filtration rate/1.73 sq M.predicted [Volume Rate/Area] in Serum, Plasma or Blood by Creatinine-based formula (CKD-EPI) 10/22/2024 14:54:26 31 Below low normal >=60 (mL/min) Final eGFR is calculated based on the CKD-EPI 2020 equation. Sodium 10/22/2024 14:54:26 139 135-146 (m mol/L) Final Potassium 10/22/2024 14:54:26 4.3 3.5-5.1 (m mol/L) Final Cl 10/22/2024 14:54:26 97 Below low normal 98- 107 (mmol/L) Final CO2 10/22/2024 14:54:26 31 22-32 (mmo l/L) Final Anion gap 10/22/2024 14:54:26 11 7-15 (mmol /L) Final Glucose 10/22/2024 14:54:26 168 Above high normal 70 -120 (mg/dL) Final Calcium 10/22/2024 14:54:26 9.7 8.4-10.2 ( mg/dL) Final Performing Location [facility] [place] - [address] [place] [address]
--- OUTSIDE RECORDS SUMMARY | 2024-12-09 19:27 | External Medical Summary ---
Author Name Unknown Address Unknown Organization [id number]:[place] [place] [address] [facility] [address] Laboratory Report Ordering Provider Test Date Status JAG SHULTZ 10/22/2024 14:54:26 Final Observation Date Value Abnormality Reference (Units ) Status WBC, Total 10/22/2024 14:54:26 11.33 Above high normal 4.00-10.80 (K/uL) Final RBC 10/22/2024 14:54:26 4.31 3.85-5.15 (M/uL) Final Hemoglobin 10/22/2024 14:54:26 12.6 12.0-15.3 (g/dL) Final HCT 10/22/2024 14:54:26 41.5 36.0-45.2 (%) Final MCV 10/22/2024 14:54:26 96.3 81.5-97.5 (fL) Final MCH 10/22/2024 14:54:26 29.2 27.0-34.0 (pg) Final MCHC 10/22/2024 14:54:26 30.4 32.0-36.0 (g/dL) Final RDW 10/22/2024 14:54:26 13.7 11.5-15.5 (%) Final Platelets 10/22/2024 14:54:26 330 140-400 (K/uL) Final MPV 10/22/2024 14:54:26 10.0 6.6-11.1 (fL) Final Nucleated erythrocytes/100 leukocytes [Ratio] in Blood by Automated count 10/22/2024 14:54:26 0 <=0 (/100 WBCs) Final Performing Location [facility] [place] [address] [place] [address]
--- OUTSIDE RECORDS SUMMARY | 2024-12-09 19:27 | External Medical Summary | Summary of Care ---
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 [place] [address] [place] [address] Galdino Andujar DO [address] [place] [address] Type 2 diabetes mellitus with stage 3b chronic kidney disease, with long-term current use of insulin ([facility])*; 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 3b chronic kidney disease (HCC); Moderate episode of recurrent major depressive disorder ([facility]); Hydronephrosis of right kidney; Spinal stenosis of lumbar region without neurogenic claudication; Recurrent deep vein thrombosis (DVT) of both lower extremities ([facility]); Morbid (severe) obesity with alveolar hypoventilation ([facility]); DM peripheral angiopathy ([facility]); Anxiety state; Essential hypertension with goal blood pressure less than 140/90; Atherosclerosis of iroquois coronary artery of iroquois heart without angina pectoris; Postsurgical hypothyroidism; Hyperparathyroidism, secondary renal (HCC); Abnormality of gait; Chronic hypoxemic respiratory failure (HCC); Body mass index (BMI) of 45.0 to 49.9 in adult (HCC); Dyslipidemia; Gastroesophageal reflux disease with esophagitis without hemorrhage; Frank filter in place; History of pulmonary embolus (PE); Iron deficiency; Restless legs syndrome; DM type 2 nursing care encounter (HCC); Drug-induced constipation; Primary osteoarthritis of both knees; Lumbar radiculopathy Allergies Active Allergy Reactions Criticality Noted Date [...] as of this encounter (statuses as of 10/22/2024) Medications ONETOUCH DELICA LANCETS 33G [facility] Check blood sugars 3-4 times [...] goal of 7.0%-8.0% ([facility]) Inject 8 units with breakfast and 6 units lunch and 10 units with dinner + sliding scale 1 units for every 30 units BG > 150. 150 mL 3 05/16/20 Active Dexcom G7 Sensor Use as directed. ([facility] 06/01/20 Active Plavix 75 MG Oral Tablet [...] use of insulin ([facility]) Inject 7.5 mg under the [...] Units Subcutaneous DAILY(1900), Per MTD, Reported on 10/22/2024 rOPINIRole HCl 2 MG [...] 5 09/17/20 24 Active Comfort EZ Pen Aurora 31G X 8 MM (Insulin Pen Needle) [...] AT BEDTIME 30 Tablet 5 10/16/19 25 Active Polyethylene Glycol 3350 17 [...] Pain, Severe. 90 Tablet 10/22/19 25 Active traMADol HCl 50 [...] inhalation solution 2.5 mgIndications:ILD (interstitial lung disease) ([facility]),Chronic respiratory failure with hypoxia ([facility]) 2.5 mg NEBULIZER PRN 10/11/2024 10/11/2025 Active Albuterol Sulfate (Proventil) (5 MG/ML) 0.5% *conc* inhalation solution 2.5 mgIndications:ILD (interstitial lung disease) (HCC),Chronic respiratory failure with hypoxia (HCC) 2.5 mg NEBULIZER PRN 10/11/2024 10/11/2025 Active documented as of this encounter (statuses as of 10/22/2024) Active Problems Problem Noted Date Diagnosed Date [...] as of this encounter (statuses as of 10/22/2024) Resolved Problems Problem Noted Date Diagnosed Date [...] as of this encounter (statuses as of 10/22/2024) Immunizations Name Administration Dates Next Due COVID-19 mRNA, LNP-s, No Pre serve, 2-Dose Series (Pfizer) 01/08/2021,12/18/2020 COVID-19, LNP-s, No Preserve , Navarro-sucrose, Ages 12+ (Pfizer) 2022,10/01/2021 COVID-19, MRNA-LNP, PF, 30 M CG/0.3 mL, 12 YRS AND ABOVE, IM ([facility] 07/31/2024,07/26/2023 Pneumococcal Conjugate Vacci ne, 20-valent ([id number]) 03/12/2022 Pneumococcal Polysaccharide PPV23 (Pneumovax) 08/22/2009,06/15/2006 RSV [...] Sign Reading Time Taken Comments Blood Pressure 134/70 10/22/2024 2:36 PM EST Pulse 84 10/22/2024 1:53 PM EST Temperature 36.1 C (97 F) 10/22/2024 1:53 PM EST Respiratory Rate 16 10/22/2024 1:53 PM EST Oxygen Saturation 94% 10/22/2024 1:53 PM EST with3 LPM Inhaled Oxygen Concentration - - Weight 121.9 kg (268 lb 11. 2 oz) 10/22/2024 1:53 PM EST Height 160 cm (5' 3") 10/22/2024 1:53 PM EST Body Mass Index 47.6 10/22/2024 1:53 PM EST documented in this encounter Patient Instructions * Patient Instructions* Renato Evelin, OPERATIONS CONTROLLER - 10/22/2024 1:55 PM EST Diabetes: Keeping Feet Healthy Inspect [...] calluses yourself. Talk to your doctor or lay out machine operator (a doctor who specializes in foot care) [...] the area doesnt appear to be healing. [id number] [email or web address], [address] [place] [address]. All rights reserved. This information is not intended as a substitute for professional medical care. Always follow your healthcare professional's instructions. documented in this encounter Progress Notes * Galdino Andujar, - 10/22/2024 2:27 PM EST SUBJECTIVE: Stephanie Camp is a 69 year old female. Chief Complaint Patient presents with Follow Up HPI: Patient is a 69 year old female with a history of DM type II, CKD stage III, Diastolic CHF, right Hydronephrosis, right ureteral stent, right Transcarotid Artery Revascularization in 08/2023, ChronicHypoxic Respiratory Failure, HTN, Recurrent DVT, IVC Filter, Hyperlipidemia, GERD, Lumbar Disc Disease, Restless Leg Syndrome, Sleep Apnea on CPAP, HIT, and Ambulatory Dysfunction that is seen for follow up. The patient has right thoracolumbar back pain for 3-4 days. No fever or chills and urine flow is normal. No falls or trauma. Tizanidine has not improved muscle spasm in lower back. Weight is stable and appetite is fair. Chronic shortness of breath is stable. No chest pain is present. Patient Active Problem List Diagnosis Dyslipidemia Postsurgical hypothyroidism ELISSA (obstructive sleep apnea) Venous insufficiency Essential hypertension with goal blood pressure less than 140/90 History of pulmonary embolus (PE) [place] filter in place Fibromyalgia Abnormality of gait [...] 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) Atherosclerosis of iroquois coronary artery without angina pectoris Carotid artery stenosis, asymptomatic, right Encounter for long-term current use of medication Type 2 diabetes mellitus with hemoglobin A1c goal of less than 8.0% (HCC) Recurrent deep vein thrombosis (DVT) of both lower extremities (HCC) Chronic hypoxemic respiratory failure (HCC) Chronic kidney disease, stage 3b (HCC) ILD (interstitial lung disease) (HCC) Moderate episode of recurrent major depressive disorder (HCC) Primary osteoarthritis of both knees Type 2 diabetes mellitus with stage 3b chronic kidney disease, with long-term current use of insulin (HCC) Anxiety state Sacroiliitis, not elsewhere classified (HCC) DM peripheral angiopathy (HCC) Morbid (severe) obesity due to excess calories (HCC) Iron deficiency Hydronephrosis of right kidney History of infection with vancomycin resistant Enterococcus (VRE) Body mass index (BMI) of 45.0 to 49.9 in adult (HCC) Morbid (severe) obesity with alveolar hypoventilation (HCC) Drug-induced constipation Current Outpatient Medications Medication Sig Dispense Refill Polyethylene Glycol 3350 [...] for Pain, Severe. 90 Tablet 0 ONETOUCH DELFreight Farms LANCETS 33G [facility] Check blood sugars 3-4 times [...] units BG > 150. 150 mL 3 Dexcom G7 Sensor Use as directed. (From [facility]) Plavix 75 MG Oral Tablet Take 1 Tablet by mouth in the morning. Aspirin 81 MG Oral Tablet Delayed Release Take 1 Tablet by mouth in the morning. Ferrous Sulfate 325 (65 Fe) MG Oral Tablet (Feosol) Take 1 Tablet by mouth in the morning and 1 Tablet before bedtime. PictureHealingToNextance Verio In Vitro Strip (Glucose Blood) Use up to 4 times a day E11.9 in case of dexcom failure 100 Strip 11 Cholecalciferol 25 MCG (1000 UT) Oral Capsule Take 1 capsule by mouth once daily in the morning 30 Capsule 5 Dicyclomine HCl 20 MG Oral Tablet (Bentyl) Take 1 Tablet by mouth 4 times a day as needed for Cramping. 180 Tablet 3 Mounjaro 7.5 MG/0.5ML Subcutaneous Solution Pen-injector (Tirzepatide) Inject 7.5 mg under the skinonce a week. 2 mL 11 Ondansetron HCl 4 MG Oral Tablet (Zofran) Take 1 Tablet (4 mg) by mouth every 6 hours as needed forNausea. 90 Tablet 6 Levothyroxine Sodium 200 MCG Oral Tablet (Levoxyl) TAKE 1 TABLET BY MOUTH ONCE DAILY IN THE [id number] Tablet 1 Meclizine HCl 12.5 MG Oral Tablet (Antivert) Take 1 Tablet by mouth 3 times a day as needed for Dizziness. 30 Tablet 1 Gabapentin 300 MG Oral Capsule (Neurontin) Take 1 Capsule by mouth in the morning and 1 Capsule before bedtime. 60 Capsule 5 Tresiba FlexTouch 100 UNIT/ML Subcutaneous Solution Pen-injector (Insulin Degludec) INJECT 38 UNITSUNDER THE SKIN IN THE EVENING (Patient taking differently: Inject 41 Units under the skin every evening. Per MTDM) 15 mL 5 rOPINIRole HCl 2 MG Oral Tablet (Requip) TAKE 1 TABLET BY MOUTH AT BEDTIME 30 Tablet 5 Magnesium Oxide 400 MG Oral Tablet TAKE 1 TABLET BY MOUTH IN THE MORNING AND AT BEDTIME 60 Tablet 5 Furosemide 40 MG Oral Tablet (Lasix) Take 1.5 Tablets by mouth in the morning and 1.5 Tablets before bedtime. Morning and noon. 30 Tablet 2 Rosuvastatin Calcium 5 MG Oral Tablet (Crestor) Take 1 Tablet by mouth in the morning. 30 Tablet 5 Comfort EZ Pen Aurora 31G X 8 MM (Insulin Pen Needle) use five times daily 500 Each 3 Fluticasone Propionate 50 MCG/ACT Nasal Suspension (Flonase) Administer 2 Sprays into nostril in the morning and 2 Sprays before bedtime. 16 g 3 Eliquis 2.5 MG Oral Tablet (Apixaban) TAKE 1 TABLET BY MOUTH IN THE MORNING AND AT BEDTIME 60 Tablet 11 clonazePAM 0.5 MG Oral Tablet (KlonoPIN) TAKE 1 TABLET BY MOUTH THREE TIMES A DAY 84 Tablet 0 Senna-Time S 8.6-50 MG Oral Tablet (senna-docusate) TAKE 1 TABLET BY MOUTH IN THE MORNING AND AT BEDTIME 60 Tablet 6 Omeprazole 20 MG Oral Capsule Delayed Release (PriLOSEC) TAKE 1 CAPSULE BY MOUTH ONCE DAILY IN THE MORNING 30 Capsule 5 DULoxetine HCl 60 MG Oral Capsule Delayed Release Particles (Cymbalta) TAKE 1 CAPSULE BY MOUTH ONCEDAILY IN THE MORNING 30 Capsule 5 Potassium Chloride Ayleen ER 20 MEQ Oral Tablet Extended Release TAKE 1 TABLET BY MOUTH IN THE MORNING AND AT BEDTIME 60 Tablet 5 traZODone HCl 50 MG Oral Tablet (Desyrel) TAKE 1 TABLET BY MOUTH AT BEDTIME 30 Tablet 5 Current Facility-Administered Medications Medication Dose Route Frequency Provider Last Rate Last Admin Albuterol Sulfate (Proventil) (2.5 MG/3ML) 0.083% inhalation solution 2.5 mg 2.5 mg Nebulizer PRN Albuterol Sulfate (Proventil) (5 MG/ML) 0.5% *conc* inhalation solution 2.5 mg 2.5 mg Nebulizer PRN The patient's medication list was reviewed and updated as needed. Past Medical History: Diagnosis Date ELSIE (acute kidney injury) ([facility]) 06/12/2018 Allergic rhinitis due to other allergen Chronic hypoxemic respiratory failure ([facility]) 01/07/2022 Diverticulosis of colon 01/28/2006 Essential hypertension with goal blood pressure less than 140/90 02/22/2014 ELLIE (generalized anxiety disorder) 09/13/2009 [address] filter in place 08/19/2014 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[facility]) 08/22/2009 History of pulmonary embolus (PE) 07/16/2014 HTN, goal below 140/90 Hydronephrosis Impetigo 09/27/2018 Obesity, BMI not known Perforation of intestine ([facility]) 1996 COLON -- 1996 Pneumonia in aspergillosis(484.6) 09/14/2009 Recurrent deep vein thrombosis (DVT) of both lower extremities ([facility]) 01/07/2022 Sleep apnea, obstructive Spinal stenosis of lumbar region without neurogenic claudication 07/15/2020 Spontaneous pneumothorax 09/14/2009 Statin intolerance 07/16/2014 Type 2 diabetes mellitus with hemoglobin A1c goal of less than 8.0% ([facility]) 01/07/2022 Past Surgical History: Procedure Laterality Date ARTHROPLASTY KNEE TOTAL Right 07/24/2014 R COLONOSCOPY, DIAGNOSTIC (RECTUM) 02/18/2016 normal, repeat 10 yrs/[facility] COLONOSCOPY, GI REFERRAL OP 01/28/2006 diverticulosis--repeat 10 years INCISION OF [place], PLANNED 06/03/2011 TRACHEOSTOMY PLANNED performed by DANNY HOLDER at [facility] INJECT DX/THER SUBSTANCE INTERLAMINAR LUMBAR/SACRAL W IMAGE GUIDE 05/26/2020 INJECTION SPINE LUMBAR OR SACRAL performed by Raj Ahn DO at OR [facility] INJECT DX/THER SUBSTANCE INTERLAMINAR LUMBAR/SACRAL W IMAGE GUIDE 05/14/2021 INJECTION SPINE LUMBAR OR SACRAL performed by Raj Ahn, DO at OR [facility] INJECT DX/THER SUBSTANCE INTERLAMINAR LUMBAR/SACRAL W IMAGE GUIDE 08/13/2021 INJECTION SPINE LUMBAR OR SACRAL performed by Raj Anh DO at OR [facility] KNEE ARTHROSCOPY/DEBRIDEMENT 07/27/[address] PERMANENT GASTROSTOMY TUBE 09/06/2009 GASTROSTOMY WITH CONSTUCTION GASTRIC TUBE performed by AMADOU NUNEZ at [facility] REMOVAL OF THYROID GLAND 06/15/2011 THYROIDECTOMY INCLUDING SUBSTERNAL THYROID CERVICAL APPROACH performed by DANNY HOLDER at [facility] REMOVE GALLBLADDER 09/06/2009 CHOLECYSTECTOMY performed by AMADOU NUNEZ at [facility] REPAIR RECURRENT INCISIONAL HERNIA 09/26/1998 REVISION OF COLOSTOMY, SIMPLE 09/26/1997 SACROILIAC JOINT INJECT W/GUIDANCE 07/28/2020 INJECTION SACROILIAC JOINT performed by Raj Ahn DO at OR [facility] SACROILIAC JOINT INJECT W/GUIDANCE 03/03/2022 INJECTION SACROILIAC JOINT performed by [place] Callum Ahn DO at OR [facility] SACROILIAC JOINT INJECT W/GUIDANCE 05/04/2023 INJECTION SACROILIAC JOINT performed by Raj Ahn DO at OR [facility] SUTURE, LARGE INTESTINE W/COLOSTOMY 09/26/1996 perforation R colon with colostomy TRANSCATH STENT-CAROTID ARTERY, W/EMBOL PROTECTION Right 09/06/2023 Dr. Tang VENA CAVA FILTER/LIGATION/CLIP 08/19/2009 [place] filter placement through the right femoral 08/19/[address] Lerma at [facility] Review of patient's allergies indicates: Allergen [...] pain, blood in stool, diarrhea,nausea and vomiting. Chronic abdominal cramping is unchanged Genitourinary: Positive for flank pain. Negative for dysuria, frequency and hematuria. Musculoskeletal: Positive for arthralgias, back pain, gait problem and myalgias. Neurological: Negative for dizziness, syncope and headaches. Psychiatric/Behavioral: Positive for dysphoric mood and sleep disturbance. Negative for confusion and decreased concentration. OBJECTIVE: BP 168/84 | Pulse 84 | Temp 97 F (36.1 C) | Resp 16 | Ht 5' 3" (1.6 m) | Wt 268 lb 11.2 oz (121.9 kg) | LMP 03/11/2003 | SpO2 94% Comment: with3 LPM | BMI 47.60 kg/m | BSA 2.33 m Physical Exam Vitals and nursing note [...] No edema. Neurological: Mental Status: She is alert and oriented to person, place, and time. Mental status is at baseline. Motor: No weakness. Gait: Gait abnormal. Psychiatric: Mood and Affect: Mood is depressed. Affect is flat. Results for orders placed or performed in visit on 10/11/24 IRON SCREEN, INCLUDING TIBC Result Value Ref Range Iron 79 33 - 151 ug/dL Iron Binding Capacity 338 250 - 425 ug/dL Transferrin Saturation Percent 23 15 - 55 % FERRITIN Result Value Ref Range Ferritin 36 13 - 150 ng/mL LIPID PANEL WITH DIRECT LDL IF TG IS HIGH Result Value Ref Range Triglycerides 167 <=174 mg/dL Cholesterol 122 <200 mg/dL HDL Cholesterol 38 (L) >49 mg/dL Non-HDL Cholesterol 84 <=159 mg/dL CBC Result Value Ref Range WBC 11.04 (H) 4.00 - 10.80 K/uL RBC 4.15 3.85 - 5.15 M/uL HGB 11.9 (L) 12.0 - 15.3 g/dL HCT 40.2 36.0 - 45.2 % MCV 96.9 81.5 - 97.5 fL MCH 28.7 27.0 - 34.0 pg MCHC 29.6 32.0 - 36.0 g/dL RDW 14.3 11.5 - 15.5 % PLT 311 140 - 400 K/uL MPV 10.2 6.6 - 11.1 fL DIFFERENTIAL, AUTOMATED Result Value Ref Range WBC 11.04 (H) 4.00 - 10.80 K/uL Neutrophils % 60.0 40.0 - 75.0 % Lymphocytes % 28.0 18.0 - 42.0 % Monocytes % 7.2 1.0 - 11.0 % Eosinophils % 4.3 0.0 - 6.0 % Basophils % 0.5 0.0 - 2.0 % Absolute Neutrophils 6.61 1.80 - 7.70 K/uL Absolute Lymphocytes 3.09 1.00 - 4.80 K/ul Absolute Monocytes 0.80 0.00 - 1.10 K/uL Absolute Eosinophils 0.48 0.00 - 0.70 K/uL Absolute Basophils 0.06 0.00 - 0.20 K/uL LDL CHOLESTEROL (DIRECT MEASURE) Result Value Ref Range LDL Cholesterol (Direct Measure) 66 <=129 mg/dL *Note: Due to a large number of results and/or encounters for the requested time period, some results have not been displayed. A complete set of results can be found in Results Review. PLAN AND ASSESSMENT: Type 2 diabetes mellitus with stage 3b chronic kidney disease, with long-term current use of insulin (HCC) (Primary) - ALBUMIN / CREATININE RATIO, URINE; Future; Expected date: 10/22/2024 - HEMOGLOBIN A1C; Future; Expected date: 10/22/2024 - BASIC METABOLIC PANEL; Future; Expected date: 10/22/2024 Continue MoSol marte, and Novolog 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 3b chronic kidney disease ([facility]) - MAGNESIUM; Future; Expected date: 10/22/2024 Continue Furosemide Moderate episode of recurrent major depressive disorder ([facility]) Continue Duloxetine Hydronephrosis of right kidney - CBC WITH WBC DIFFERENTIAL; Future; Expected date: 10/22/2024 - BASIC METABOLIC PANEL; Future; Expected date: 10/22/2024 - URINALYSIS, POINT OF CARE (ENTER/EDIT) - CULTURE, URINE, QUANTITATIVE; Future; Expected date: 10/22/2024 Spinal stenosis of lumbar region without neurogenic claudication - URINALYSIS, POINT OF CARE (ENTER/EDIT) - CULTURE, URINE, QUANTITATIVE; Future; Expected date: 10/22/2024 - Increase tiZANidine HCl 4 MG Oral Tablet (Zanaflex); Take 1 Tablet by mouth every 6 hours as needed for Muscle spasms. Recurrent deep vein thrombosis (DVT) of both lower extremities ([facility]) S/P IVC filter Morbid (severe) obesity with alveolar hypoventilation ([facility]) DM peripheral angiopathy ([facility]) - DIABETES FOOT EXAM Continue Clopidogrel Anxiety state Continue Clonazepam Essential hypertension with goal blood pressure less than 140/90 Continue Furosemide Atherosclerosis of iroquois coronary artery of iroquois heart without angina pectoris Postsurgical hypothyroidism - TSH WITH FREE T4 IF INDICATED; Future; Expected date: 10/22/2024 Hyperparathyroidism, secondary renal ([facility]) - PTH; Future; Expected date: 10/22/2024 Abnormality of gait Chronic hypoxemic respiratory failure ([facility]) Continue Oxygen 3-4 L NC Body mass index (BMI) of 45.0 to 49.9 in adult ([facility]) Dyslipidemia Continue Rosuvastatin Gastroesophageal reflux disease with esophagitis without hemorrhage Continue Omeprazole Frank filter in place History of pulmonary embolus (PE) Iron deficiency Continue Ferrous Sulfate Restless legs syndrome Continue Ropinirole DM type 2 nursing care encounter ([facility]) - ALBUMIN / CREATININE RATIO, URINE; Future; Expected date: 10/22/2024 Drug-induced constipation - Polyethylene Glycol 3350 17 GM/SCOOP Oral Powder (MiraLax); Take 17 g by mouth in the morning. Dissolve one heaping tablespoon in 8 ounces of water or juice.. Primary osteoarthritis of both knees - traMADol HCl 50 MG Oral Tablet (Ultram); Take 1 Tablet by mouth every 8 hours as needed for Pain,Severe. Lumbar radiculopathy - traMADol HCl 50 MG Oral Tablet (Ultram); Take 1 Tablet by mouth every 8 hours as needed for Pain,Severe. I have reviewed the patients controlled substance dispensing history in the Prescription Drug Monitoring Program in compliance with the [facility] regulations before prescribing a controlled substance. [...] results can be found in Results Review. Tramadol due 10/15/2024 I spent a total of 40-54 minutes (exact time 45 mins) on the date of service in preparation, delivery, and documentation of the care provided to Stephanie Camp excluding any time spent in the performance of separately billed services or time spent by another provider/QHP. Follow Up: Return in about 2 months (around 12/20/2024), or if symptoms worsen or fail to improve. Galdino Andujar DO 2:27 PM 10/22/2024 * Shira Gross LPN - 10/22/2024 1:55 PM EST Socks and Shoes Removed for Annual Diabetic Foot Screening RIGHT FOOT: No Reddened, Cracking, Or Open Areas Noted. RIGHT Dorsalis Pedis Pulse: Palpable RIGHT Posterior Tibial Pulse: Palpable RIGHT Monofilament:Patient reports feeling monofilament pressure on plantar surface of foot Bilateral numbness on toes. LEFT FOOT: No Reddened, Cracking or Open Areas Noted. LEFT Dorsalis Pedis Pulse: Palpable LEFT Posterior Tibial Pulse: Palpable LEFT Monofilament:Patient reports feeling monofilament pressure on plantar surface of foot Do you need diabetic shoes: N/A DM Foot Exam completed today. Provider aware. Shira Gross LPN Urine albumin/creatinine ratio ordered today. Provider aware. documented in this encounter Nursing Notes * Shira Gross LPN - 10/22/2024 1:56 PM EST Pain above right kidney, under care of urology--Dr Arriaga. Scheduled to have stent changed in October sometime. Problems with constipation-- Ok to decrease clonazepam to twice daily documented in this encounter Plan of Treatment Upcoming Encounters Date Type Department Care Team (Late st Contact Info) Description 11/08/2024 1:00 PM EST PulmDiagnostic Pulmonary Function Lab, [facility] [address] [facility] [place] [address] [place], [address] [facility] [place] [address] 11/08/2024 2:30 PM EST Imaging Radiology [address] [facility] [place] [id number] 12/19/2024 1:30 PM EDT Office Visit Pulmonary Medicine, [facility] [address] [facility] [place] [id number] Jhonny Holley MD [address] [facility] [address] 12/20/2024 11:20 AM EDT Office Visit Family Practice [address] [place] [address] [address] [facility] [place] [phone] Galdino Andujar, DO [address] [place] [address] 02/05/2025 1:00 PM EDT Office Visit Family Practice [address] [facility] [address] [facility] [place] [address] Galdino Andujar, DO [address] [place] [address] 06/13/2025 1:30 PM EDT Imaging Radiology [address] [facility] [place] [phone] Pending Results Name Type Priority Associated Diagnoses Date /Time ALBUMIN / CREATININE RATIO, URINE Lab Routine Type 2 diabetes mellitus with stage 3b chronic kidney disease, with long-term current use of insulin (HCC) DM type 2 nursing care encounter ([facility]) 10/22/2024 2:56 PM EST HEMOGLOBIN A1C Lab Routine Type 2 diabetes mellitus with stage 3b chronic kidney disease, with long-term current use of insulin ([facility]) 10/22/2024 2:54 PM EST CBC WITH WBC DIFFERENTIAL Lab Routine Hydronephrosis of right kidney 10/22/2024 2:54 PM EST BASIC METABOLIC PANEL Lab Routine Hydronephrosis of right kidney Type 2 diabetes mellitus with stage 3b chronic kidney disease, with long-term current use of insulin ([facility]) 10/22/2024 2:54 PM EST TSH WITH FREE T4 IF INDICATED Lab Routine Postsurgical hypothyroidism 10/22/2024 2:54 PM EST PTH Lab Routine Hyperparathyroidism, secondary renal ([facility]) 10/22/2024 2:54 PM EST MAGNESIUM Lab Routine 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 3b chronic kidney disease ([facility]) 10/22/2024 2:54 PM EST CULTURE, URINE, QUANTITATIVE Lab Routine Hydronephrosis of right kidney Spinal stenosis of lumbar region without neurogenic claudication 10/22/2024 2:56 PM EST CBC Lab Routine Hydronephrosis of right kidney 10/22/2024 2:54 PM EST DIFFERENTIAL, AUTOMATED Lab Routine Hydronephrosis of right kidney 10/22/2024 2:54 PM EST Scheduled Orders Name Type Priority Associated Diagnoses Orde r Schedule ALBUMIN / CREATININE RATIO, URINE Lab Routine Type 2 diabetes mellitus with stage 3b chronic kidney disease, with long-term current use of insulin ([facility]) DM type 2 nursing care encounter ([facility]) Expected: 10/22/2024 (Approximate), Expires: 10/22/2025 HEMOGLOBIN A1C Lab Routine Type 2 diabetes mellitus with stage 3b chronic kidney disease, with long-term current use of insulin ([facility]) Expected: 10/22/2024 (Approximate), Expires: 10/22/2025 CBC WITH WBC DIFFERENTIAL Lab Routine Hydronephrosis of right kidney Expected: 10/22/2024 (Approximate), Expires: 10/22/2025 BASIC METABOLIC PANEL Lab Routine Hydronephrosis of right kidney Type 2 diabetes mellitus with stage 3b chronic kidney disease, with long-term current use of insulin ([facility]) Expected: 10/22/2024 (Approximate), Expires: 10/22/2025 TSH WITH FREE T4 IF INDICATED Lab Routine Postsurgical hypothyroidism Expected: 10/22/2024 (Approximate), Expires: 10/22/2025 PTH Lab Routine Hyperparathyroidism, secondary renal (HCC) Expected: 10/22/2024 (Approximate), Expires: 10/22/2025 MAGNESIUM Lab Routine 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 3b chronic kidney disease (HCC) Expected: 10/22/2024 (Approximate), Expires: 10/22/2025 URINALYSIS, POINT OF CARE (ENTER/EDIT) Point of Care Testing Routine Hydronephrosis of right kidney Spinal stenosis of lumbar region without neurogenic claudication Ordered: 10/22/2024 CULTURE, URINE, QUANTITATIVE Lab Routine Hydronephrosis of right kidney Spinal stenosis of lumbar region without neurogenic claudication Expected: 10/22/2024, Expires: 10/22/2025 Scheduled Procedures Name Priority Associated Diagnoses Date/Ti me COLONOSCOPY FLEXIBLE PROXIMAL DIAGNOSTIC Recall Colon cancer screening Health Maintenance Due Date Last Done Comments Cologuard 2000 Fecal Occult Blood Test 2000 Sigmoidoscopy 2000 Albumin/Creatinine Ratio 08/05/2024 023, 11/01/2022, 01/07/2022, Additional history exists TSH 12/21/2024 12/22/2023, 09/26, 11/01/2022, Additional history exists HbA1c 12/25/2024 06/26/2024, 07/0 09/2023, 12/22/2023, Additional history exists CKD PHOS USE SMARTSET 38479 12/26/2024 04/0 10/2023, 02/11/2023, 01/07/2022, Additional history exists Adult Wellness Visit 02/13/2025 02/14/2024, 08/05/20 22 GFR 03/18/2025 09/17/2024, 10/0 09/2023, 05/18/2024, Additional history exists Mammogram 06/12/2025 06/12/2024, 05/27, 04/21/2023, Additional history exists Diabetic Eye Exam 07/06/2025 07/06/2024, , 07/06/2024, Additional history exists CKD HGB USE SMARTSET 65326 10/11/202510/11, 10/11/2024, 09/17/2024, Additional history exists Depression Monitoring 10/22/2025 10/22/2024, 024 Diabetic Foot Exam 10/22/2025 10/22/2024, 0 10/04/2023, 11/01/2022, Additional history exists Colonoscopy 02/17/2026 02/18/2016, [...] Diagnosis Comments URINALYSIS, POINT OF CARE CURT 10/22/2024 2:44 PM EST documented in this encounter Results * (ABNORMAL) URINALYSIS, POINT OF CARE (10/22/2024 2:44 PM EST) Color, Urine Other(A) Light Yellow, Yellow 10/22/2024 3:01 PM EST [facility] 56[facility] Clarity, Urine Slightly Cloudy(A) Clear 10/22/2024 3:01 PM EST [facility] Glucose, Urine Negative Negative mg/dL 10/22/2024 3:01 PM EST [facility] Bilirubin, Urine Negative Negative 10/22/2024 3:01 PM EST [facility] Ketone, Urine Negative Negative mg/dL 10/22/2024 3:01 PM [place] [address] Specific [place], Urine 1.015 1.003 - 1.030 10/22/2024 3:[address] Blood, Urine Small(A) Negative 10/22/2024 3:[address] pH, Urine 7.0 5.0, 5.5, 6.0, 6.5, 7.0, 7.5 units 10/22/2024 3:01 PM EST [address] Protein, Urine Negative Negative mg/dL 10/22/2024 3:[address] Urobilinogen, Urine 0.2 0.2, 1.0 mg/dL 10/22/2024 3:[address] Nitrite, Urine Negative Negative 10/22/2024 3:01 PM EST [place] [address] Esterase, Urine Large(A) Negative 10/22/2024 3:01 PM [place] [address] Urine 10/22/2024 2:44 PM EST 10/22/2024 3:01 PM EST us Galdino Andujar DO LAB POINT OF CARE TE ST DOCKED DEVICE UNSOLICITED RESULTS Final Result [place] [address] [address] [place] [address] documented in this encounter Visit Diagnoses Diagnosis Benign hypertensive heart and kidney disease with diastolic CHF, NYHA class 1 and CKD stage 3 ([facility])- Primary Fibromyalgia Mylagia and myositis, unspecified Primary osteoarthritis of both knees Primary localized osteoarthrosis, lower leg Anxiety state Anxiety state, unspecified Recurrent deep vein thrombosis (DVT) of both lower extremities ([facility]) Chronic hypoxemic respiratory failure ([facility]) Chronic respiratory failure 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 3b chronic kidney disease, with long-term current use of insulin ([facility]) Restless legs syndrome Restless legs syndrome (RLS) ELLIE (generalized anxiety disorder) Generalized anxiety disorder Mild episode of recurrent major depressive disorder ([facility]) Advanced care planning/counseling discussion Other specified counseling ILD (interstitial lung disease) ([facility])- Primary Postinflammatory pulmonary fibrosis Fibromyalgia [...] discussion- Primary Other specified counseling Atherosclerosis of iroquois coronary artery of iroquois heart without angina pectoris Carotid artery stenosis, asymptomatic, right Essential hypertension with goal blood pressure less than 140/[address] [address] Other postprocedural status Hypertensive [...] discussion- Primary Other specified counseling Atherosclerosis of iroquois coronary artery of iroquois heart without angina pectoris Frank filter in [...] and stage 3b chronic kidney disease (HCC) Moderate episode of recurrent major depressive disorder (HCC) Hydronephrosis of right kidney Hydronephrosis Spinal stenosis of lumbar region without neurogenic claudication Spinal stenosis, lumbar region, without neurogenic claudication Recurrent deep vein thrombosis (DVT) of both lower extremities (HCC) Morbid (severe) obesity with alveolar hypoventilation (HCC) DM peripheral angiopathy (HCC) Type II or unspecified type diabetes mellitus with peripheral circulatory disorders, not stated as uncontrolled Anxiety state Anxiety state, unspecified Essential hypertension with goal blood pressure less than 140/90 Atherosclerosis of iroquois coronary artery of iroquois heart without angina pectoris Postsurgical hypothyroidism Hyperparathyroidism, secondary renal (HCC) Secondary hyperparathyroidism (of renal origin) Abnormality of gait Chronic hypoxemic respiratory failure (HCC) Chronic respiratory failure Body mass index (BMI) of 45.0 to 49.9 in adult (HCC) Dyslipidemia Other and unspecified hyperlipidemia Gastroesophageal reflux disease with esophagitis without hemorrhage [place] filter in place Other postprocedural status History of pulmonary embolus (PE) Personal history of pulmonary embolism Iron deficiency Iron deficiency anemia, unspecified Restless legs syndrome Restless legs syndrome (RLS) DM type 2 nursing care encounter (HCC) Type II or unspecified type diabetes mellitus without mention of complication, not stated as uncontrolled Drug-induced constipation Other constipation Primary osteoarthritis of both knees Primary localized osteoarthrosis, lower leg Lumbar radiculopathy Thoracic or lumbosacral neuritis or radiculitis, unspecified Screening mammogram for breast cancer documented in this encounter Advance Directives Documents on File Type Date Recorded Patient Senior Product Development Manager Expl anation POLST 03/19/2020 4:25 PM [...] (no specific identity) Health Care Power of Labels Molder Princess [place] Other - (no specific identity) Health Care Power of Labels Molder Care Teams Railroad Track Mechanic Relationship Specialty Start Date End Date Galdino Andujar DO [address] [place] [address] PCP - General Internal Medicine 03/08/24 documented as of this encounter
--- OUTSIDE RECORDS SUMMARY | 2024-12-09 19:27 | External Medical Summary ---
Author Name Unknown Address Unknown Organization [id number]:[facility] [place] [address] [place] [address] Laboratory Report Ordering Provider Test Date Status JAG SHULTZ 10/22/2024 14:54:26 Final Observation Date Value Abnormality Reference (Units ) Status TSH 10/22/2024 14:54:26 0.74 0.27-4.20 (uIU/mL) Final Performing Location [facility] - [address] [facility] [address]
--- OUTSIDE RECORDS SUMMARY | 2024-12-09 19:27 | External Medical Summary ---
Author Name Unknown Address Unknown Organization [id number]:[facility] [place] [address] [place] [address] Laboratory Report Ordering Provider Test Date Status JGA SHULTZ 10/22/2024 14:56:09 Final Normal: <30 mg/g creatinine< br/>High: 30-300 mg/g creatinine
Very High: >300 mg/g creatinine
Nephrotic: >2200 mg/g creatinine Observation Date Value Abnormality Reference (Units ) Status Albumin, Urine 10/22/2024 14:56:09 5.00 (mg/dL) Final Creatinine, Urine 10/22/2024 14:56:09 55 (mg/dL) Final Albumin/Creatinine [Mass Ratio] in Urine 10/22/2024 14:56:09 91 Above high normal <30 (mg/g Creat) Final Performing Location [facility] [place] [address] [place] [address]
--- OUTSIDE RECORDS SUMMARY | 2024-12-09 19:27 | External Medical Summary ---
Author Name Unknown Address Unknown Organization : Laboratory Report Ordering Provider Test Date Status JAG SHULTZ 10/22/2024 14:44:00 Final Observation Date Value Abnormality Reference (Units ) Status Color of Urine by Auto 10/22/2024 14:44:00 Other Abnormal Light Yellow, Yellow Final Clarity, Urine 10/22/2024 14:44:00 Slightly Cloudy Abnormal Clear Final Glucose [Mass/volume] in Urine by Automated test strip 10/22/2024 14:44:00 Negative Negative (mg/dL) Final Bilirubin.total [Presence] in Urine by Automated test strip 10/22/2024 14:44:00 Negative Negative Final Ketones [Mass/volume] in Urine by Automated test strip 10/22/2024 14:44:00 Negative Negative (mg/dL) Final Specific gravity, Urine 10/22/2024 14:44:00 1.015 1.003-1.030 Final Hemoglobin [Presence] in Urine by Automated test strip 10/22/2024 14:44:00 Small Abnormal Negative Final pH, Urine 10/22/2024 14:44:00 7.0 5.0, 5.5, 6.0, 6.5, 7.0, 7.5 (units) Final Protein [Mass/volume] in Urine by Automated test strip 10/22/2024 14:44:00 Negative Negative (mg/dL) Final Urobilinogen, Urine 10/22/2024 14:44:00 0.2 0.2, 1.0 (mg/dL) Final Nitrite [Presence] in Urine by Automated test strip 10/22/2024 14:44:00 Negative Negative Final Leukocyte esterase [Presence] in Urine by Automated test strip 10/22/2024 14:44:00 Large Abnormal Negative Final Performing Location
--- OUTSIDE RECORDS SUMMARY | 2024-12-09 19:28 | External Medical Summary | Summary of Care ---
Author Name Unknown Organization [facility] Address [address] [place] [address] Phone [phone] Care Team Providers Care Optimization Engineer Name Role Phone ZiaandrewsGaldino DO Primary Care Provider [phone] Encounter Details Date Type Department Care Team (Late st Contact Info) Description 10/15/2024 Population Health External Data Unspecified Department Allergies [...] as of this encounter (statuses as of 10/15/2024) Medications ONETOUCH DELICA LANCETS 33G MISC Check [...] directed. (From [facility]) 06/01/20 Active Plavix 75 MG Oral Tablet Take 1 Tablet by mouth in the morning. 07/11/20 Active Aspirin 81 MG Oral Tablet Delayed Release Take 1 Tablet by mouth in the morning. Active Apixaban 2.5 MG Oral Tablet (Eliquis) Take 1 Tablet by mouth in the morning and 1 Tablet before bedtime. 60 Tablet 11 10/04/19 24 Active Ferrous Sulfate 325 (65 Fe) MG [...] dexcom failure 100 Strip 11 02/02/20 Active Senna-Time S 8.6-50 MG Oral Tablet (senna-docusate) TAKE 1 TABLET BY MOUTH IN THE MORNING AND AT BEDTIME 60 Tablet 03/22/20 24 Active Potassium Chloride Ayleen ER 20 MEQ Oral Tablet Extended ReleaseIndications :Benign hypertensive heart and kidney disease with diastolic CHF, NYHA class 1 and CKD stage 3 ([facility]),Chronic diastolic congestive heart failure (HCC) TAKE 1 TABLET BY MOUTH IN THE MORNING AND AT BEDTIME 60 Tablet 04/18/20 24 Active DULoxetine HCl 60 MG Oral Capsule Delayed Release Particles (Cymbalta)Indicati ons:Fibromyalgia,M ajor depressive disorder, recurrent, moderate ([facility]) TAKE 1 CAPSULE BY MOUTH ONCE DAILY IN THE MORNING 30 Capsule 04/18/20 24 Active Omeprazole 20 MG Oral Capsule Delayed Release (PriLOSEC)Indicati ons:Gastroesophage al reflux disease with esophagitis without hemorrhage TAKE 1 CAPSULE BY MOUTH ONCE DAILY IN THE MORNING 30 Capsule 5 04/18/20 24 Active traZODone HCl 50 MG Oral Tablet (Desyrel) Take 1 Tablet by mouth at bedtime. 30 Tablet 5 05/24/20 24 Active Cholecalciferol 25 MCG (1000 UT) [...] Units Subcutaneous DAILY(1900), Per MTD, Reported on 10/11/2024 rOPINIRole HCl 2 MG Oral Tablet (Requip)Indication [...] noon. 30 Tablet 2 09/17/20 24 Active traMADol HCl 50 MG Oral Tablet (Ultram)Indication s:Primary osteoarthritis of both knees,Lumbar radiculopathy Take 1 Tablet by mouth every 8 hours as needed for Pain, Severe. 90 Tablet 09/17/20 24 Active Rosuvastatin Calcium 5 MG Oral Tablet (Crestor)Indicatio ns:Dyslipidemia Take 1 Tablet by mouth in the morning. 30 Tablet 5 09/17/20 24 Active clonazePAM 0.5 MG Oral Tablet (KlonoPIN)Indicati ons:Restless legs syndrome,Anxiety state TAKE 1 TABLET BY MOUTH THREE TIMES A DAY 84 Tablet 09/20/20 24 Active Comfort EZ Pen [place] 31G X 8 MM (Insulin Pen Needle) use five times daily 500 Each 3 09/25/20 24 Active Fluticasone Propionate 50 MCG/ACT Nasal Suspension (Flonase) Administer 2 Sprays into nostril in the morning and 2 Sprays before bedtime. 16 g 3 10/11/19 25 Active tiZANidine HCl 2 MG Oral Tablet (Zanaflex)Indicati ons:Spasm of muscle Take 1 Tablet by mouth every 8 hours as needed for Muscle spasms. 21 Tablet 10/12/19 25 Active Hospital, Clinic, or Other Facility Administered Medication Ordered Dose Route Frequency Start Date End Date Status Albuterol Sulfate (Proventil) (2.5 MG/3ML) 0.083% inhalation solution 2.5 mgIndications:ILD (interstitial lung disease) ([facility]),Chronic respiratory failure with hypoxia ([facility]) 2.5 mg NEBULIZER PRN 10/11/2024 10/11/2025 Active Albuterol Sulfate (Proventil) (5 MG/ML) 0.5% *conc* inhalation solution 2.5 mgIndications:ILD (interstitial lung disease) (HCC),Chronic respiratory failure with hypoxia (HCC) 2.5 mg NEBULIZER PRN 10/11/2024 10/11/2025 Active documented as of this encounter (statuses as of 10/15/2024) Active Problems Problem Noted Date Diagnosed Date [...] 8:05 AM EDT): Home PT to start [place] filter in place 08/19/2014 History of pulmonary [...] as of this encounter (statuses as of 10/15/2024) Resolved Problems Problem Noted Date Diagnosed Date [...] as of this encounter (statuses as of 10/15/2024) Immunizations Name Administration Dates Next Due COVID-19 mRNA, LNP-s, No Pre serve, 2-Dose Series (GeckoGo) 01/08/2021,12/18/2020 COVID-19, LNP-s, No Preserve , Navarro-sucrose, Ages 12+ (GeckoGo) 2022,10/01/2021 COVID-19, MRNA-LNP, PF, 30 M CG/0.3 mL, 12 YRS AND ABOVE, IM (PFIZER-Comirnaty) 07/31/2024,07/26/2023 Pneumococcal Conjugate Vacci ne, 20-valent ([id number]) 03/12/2022 Pneumococcal Polysaccharide PPV23 (Pneumovax) 08/22/2009,06/15/2006 RSV [...] EST Office Visit Family Practice [address] [place] [address] [place] [address] Galdino Andujar, DO [address] [place] [place] [address] 11/08/2024 1:00 PM EST PulmDiagnostic Pulmonary Function Lab, [facility] [address] [place] [address] [place], [address] [facility] [place] [id number] 11/08/2024 1:30 PM EST PulmDiagnostic Pulmonary Function Lab, [facility] [address] [facility] [place], [place] [address] [place], [address] [place], [place] [address] [id number] 11/08/2024 2:30 PM EST Imaging Radiology [address] [facility] [phone] 12/19/2024 1:30 PM EDT Office Visit Pulmonary Medicine, [facility] [address] [facility] [place] [address] Jhonny Holley MD [address] [place] [address] 06/13/2025 1:30 PM EDT Imaging Radiology [address] [facility] [place] [phone] Scheduled Procedures Name Priority Associated Diagnoses Date/Ti [...] Additional history exists CKD PHOS USE SMARTSET 77996 12/26/2024 04/0 10/2023, 02/11/2023, 01/07/2022, Additional history exists Adult Wellness Visit 02/13/2025 02/14/2024, 08/05/20 22 GFR 03/18/2025 09/17/2024, 1009/2023, 05/18/2024, Additional history exists Mammogram 06/12/2025 06/12/2024, 05/27, 04/21/2023, Additional history exists Diabetic Eye Exam 07/06/2025 07/06/2024, , 07/06/2024, Additional history exists Depression Monitoring 09/07/2025 09/07/2024, 024 CKD HGB USE SMARTSET 50137 10/11/202510/11, 10/11/2024, 09/17/2024, Additional history exists Colonoscopy [...] on File Type Date Recorded 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
--- OUTSIDE RECORDS SUMMARY | 2024-12-09 19:28 | External Medical Summary | Summary of Care ---
Author Name Unknown Organization [facility] Address [address] [place] [address] Phone [phone] Care Team Providers Care Virologist Name Role Phone Galdino Andujar DO Primary Care Provider [phone] Reason for Referral * Precert (Within 10 days (routine)) - Authorized Specialty Diagnoses / Procedures Referred By Contac t Referred To Contact Radiology Diagnoses ILD (interstitial lung disease) (HCC) Chronic respiratory failure with hypoxia (HCC) Procedures CT CHEST WO CONTRAST Jhonny Holley MD [address] [place] [address] Phone: tel: fax: Referral ID Status Reason Start Date Expiration Date V isits Requested Visits Authorized [id number] Authorized 10/12/[phone] Reason for Visit * Reason Comments Follow Up Return pulm. Patient wants portable oxygen . Interstitial lung disease. * Evaluate & Treat - Unlimited Visits (Within 10 days (routine)) - Authorized Specialty Diagnoses / Procedures Referred By Contac t Referred To Contact Pulmonary Diseases / Pulmonary Diagnoses Chronic hypoxemic respiratory failure (HCC) ILD (interstitial lung disease) (HCC) Galdino Andujar DO [address] [place] [address] Phone: tel: fax: Referral ID Status Reason Start Date Expiration Date Visits Requested Visits Authorized [id number] Authorized Specialty Services Required 4 [phone] Encounter Details Date Type Department Care Team (Late st Contact Info) Description 10/11/2024 7:40 AM EST Office Visit Pulmonary Medicine, [facility] [address] [place] [address] Jhonny Holley MD [address] [place] [phone] Cough variant asthma*; Eosinophilic asthma; ILD (interstitial lung disease) ([facility]); Chronic respiratory failure with hypoxia ([facility]) Allergies Active Allergy Reactions Criticality Noted [...] as of this encounter (statuses as of 10/11/2024) Medications ONETOUCH DELICA LANCETS 33G MISC Check [...] > 150. 150 mL 3 05/16/20 23 Active Dexcom G7 Sensor Use as directed. (From [facility]) 06/01/20 23 Active Plavix 75 MG [...] dexcom failure 100 Strip 02/02/20 24 Active Senna-Time S 8.6-50 MG Oral Tablet [...] THE MORNING 30 Capsule 04/18/20 24 Active traZODone HCl 50 MG Oral Tablet (Desyrel) Take 1 Tablet by mouth at bedtime. 30 Tablet 05/24/20 24 Active Cholecalciferol 25 MCG (1000 UT) Oral Capsule Take 1 capsule by mouth once daily in the morning 30 Capsule 06/12/20 24 Active Dicyclomine HCl 20 MG Oral Tablet (Bentyl)Indication s:Irritable bowel syndrome, unspecified type Take 1 Tablet by mouth 4 times a day as needed for Cramping. 180 Tablet 3 06/19/20 24 Active Mounjaro 7.5 MG/0.5ML Subcutaneous Solution Pen-injector (Tirzepatide)Indic ations:Type 2 diabetes mellitus with stage 3b chronic kidney disease, with long-term current use of insulin ([facility]) Inject 7.5 mg under the skin [...] and 1 Capsule before bedtime. 60 Capsule 07/31/20 24 Active Tresiba FlexTouch 100 UNIT/ML Subcutaneous Solution Pen-injector (Insulin Degludec)Indicatio ns:Type 2 diabetes mellitus with hemoglobin A1c goal of 7.0%-8.0% ([facility]) INJECT 38 UNITS UNDER THE SKIN IN THE EVENING 15 mL 08/20/20 24 Active Additional Information Patient taking differently: 41 Units Subcutaneous DAILY(1900), Per MTD, Reported on 10/11/2024 rOPINIRole HCl 2 MG Oral Tablet (Requip)Indication s:Restless legs syndrome TAKE 1 TABLET BY MOUTH AT BEDTIME 30 Tablet 08/20/20 24 Active Magnesium Oxide 400 MG [...] Tablet 09/20/20 24 Active Comfort EZ Pen [place] 31G X 8 MM (Insulin Pen Needle) use five times daily 500 Each 3 09/25/20 24 Active Fluticasone Propionate 50 MCG/ACT Nasal Suspension (Flonase) Administer 2 Sprays into nostril in the morning and 2 Sprays before bedtime. 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 Type 2 [...] 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 Atherosclerosis of [place] co ronary artery without angina pectoris 12/31/2021 [...] evidently given by vascular, has to picking machine operator rx documented as of this encounter (statuses as of 10/11/2024) Resolved Problems Problem Noted Date Diagnosed Date [...] as of this encounter (statuses as of 10/11/2024) Immunizations Name Administration Dates Next Due COVID-19 mRNA, LNP-s, No Pre serve, 2-Dose Series (BAUNAT) 01/08/2021,12/18/2020 COVID-19, LNP-s, No Preserve , Navarro-sucrose, Ages 12+ (Pfizer) 2022,10/01/2021 COVID-19, MRNA-LNP, PF, 30 M CG/0.3 mL, 12 YRS AND ABOVE, IM (PFIZER-Comirnaty) 07/31/2024,07/26/2023 Pneumococcal Conjugate Vacci ne, 20-valent ([id number]) 03/12/2022 Pneumococcal Polysaccharide PPV23 (Pneumovax) 08/22/2009,06/15/2006 RSV [...] Reading Time Taken Comments Blood Pressure 120/60 10/11/2024 7:13 AM EST Pulse 84 10/11/2024 7:13 AM EST Temperature 35.9 C (96.7 F) 10/11/2024 7:13 AM ES T Respiratory Rate 16 10/11/2024 7:13 AM EST Oxygen Saturation 97% 10/11/2024 7:13 AM EST O2 2L-rest Inhaled Oxygen Concentration - - Weight 120.7 kg (266 lb) 10/11/2024 7:13 AM EST Height 160 cm (5' 3") 10/11/2024 7:13 AM EST Body Mass Index 47.12 10/11/2024 7:13 AM EST documented in this encounter Progress Notes * Jhonny Holley MD - 10/11/2024 7:37 AM EST 10/11/2024 Pulmonary Medicine, [facility] [address] [place] [id number] [id number] Stephanie Talbot Sebastianandrews 1955 female 69 year old Attending Physician Documentation: 69-year-old female 15 py smoker, quit 27 yrs ago HFpEF OSAS on CPAP therapy Obesity, BMI 47, Successful weight management over last 2-3 years , was 400 lb, now down to 266 lb Chronic hypoxic respiratory status on continuous home oxygen at 3 LPM Remote history of subpleural I LD History of pulmonary embolism, Eliquis maintenance therapy status History of DVT, IVC filter status IDDM and Mounjaro Therapy status CKD Tracheostomy status 2008 secondary to pneumonia/PE Bronchodilator regimen: None History of + PND, not on therapy History of + GERD Ambulatory dysfunction Legacy patient, Last seen by Dr. Sanchez 2021 Patient describes limited exercise tolerance due to DJD and obesity, uses wheelchair outside, uses a roll aid walker at home Denies interval hospitalizations or Emergency Room visits Current bronchodilator therapy: None Compliant with CPAP therapy and continuous home oxygen therapy Requesting evaluation for portable oxygen concentrator Physical Examination: Alert, awake, no distress Class 2 throat No JVD Adeq Air entry in all lung steiner, No Wheezing, no rales no dullness S1, S2, no murmur Soft nontender abdomen No LE Edema Nonlateralizing Neuro Exam Assessment: 69-year-old female 15 py smoker, quit 27 yrs ago HFpEF OSAS on CPAP therapy Obesity, BMI 47, Successful weight management over last 2-3 years , was 400 lb, now down to 266 lb Chronic hypoxic respiratory status on continuous home oxygen at 3 LPM Remote history of subpleural I LD History of pulmonary embolism, Eliquis maintenance therapy status History of DVT, IVC filter status IDDM and Mounjaro Therapy status CKD Tracheostomy status 2008 secondary to pneumonia/PE Add Flonase C/w Protonix PFT 6 MWT, test for conserving device HRCT F/u 2 months Follow Up: Return in about 2 months (around 12/09/2024) for Clinic Visit. | For: Clinic Visit | Check-out note: 69-year-old female 15 py smoker, quit 27 yrs ago HFpEF OSAS on CPAP therapy Obesity, BMI 47, Successful weight management over last 2-3 years , was 400 lb, now down to 266 lb Chronic hypoxic respiratory status on continuous home oxygen at 3 LPM Remote history of subpleural I LD History of pulmonary embolism, Eliquis maintenance therapy status History of DVT, IVC filter status IDDM and Mounjaro Therapy status CKD Tracheostomy status 2008 secondary to pneumonia/PE Add Flonase C/w Shannon Follow Up: Return in about 2 months (around 12/09/2024) for Clinic Visit. | For: Clinic Visit | Check-out note: nix PFT 6 MWT, test for conserving device HRCT F/u 2 months I spent a total of 40-54 minutes (exact time 45 mins) on the date of service in preparation, delivery, and documentation of the care provided to Stephanie Camp excluding any time spent in the performance of separately billed services or time spent by another provider/QHP. Jhonny Holley MD Data review: Following reports, and data as outlined below was personally reviewed and interpreted by myself. XR CHEST 2 VIEWS-06/09/2022 3:49 pm HISTORY cough, increase sob COMPARISON Chest x-ray 11/27/2021 TECHNIQUE Frontal and lateral views of the chest are examined. FINDINGS Lines/Tubes: None. Lungs/Pleura: Stable diffuse interstitial opacities. No new focal consolidation. There is no pleural effusion or pneumothorax. Heart/Mediastinum: Cardiomediastinal silhouette is within normal limits. Bones/Soft Tissues: Degenerative osseous changes. Upper Abdomen: Unremarkable. IMPRESSION IMPRESSION Chronic interstitial lung disease without new focal consolidation. 6 minutes walk test from 08/2019. Patient [...] extremity in the segments as noted above. Subjective CC: Chief Complaint Patient presents with Follow Up Return pulm. Patient wants portable oxygen . Interstitial lung disease. HPI: Nursing Notes: Kika Dsouza LPN 10/11/24 0722 Signed Chief Complaint Patient presents with Follow Up Return pulm. Patient wants portable oxygen . Interstitial lung disease. Interm History/Respiratory Symptoms Cough: yes-no phlegm Hemoptysis: no Sinus Symptoms: yes-congestion/drainage Hospitalizations: no ED Trips: no Triggers: pollen,dust, perfume, cold weather Nocturnal: sleeps on one pillow CPAP/BiPAP/O2: hasn't been using CPAP-was getting nose bleeds. O2 4L DME Supplier: [employer] Flu Vaccine: 2023 Pneumovax: 2008 Prevnar: 2021 COVID 19: x6 . MMRC Dyspnea Scale = 3 (I stop for breath after walking about 100 yards or after a few minutes on ground level) Objective Filed Vitals: 10/11/24 0713 BP: 120/60 Pulse: 84 Resp: 16 Temp: 35.9 C (96.7 F) TempSrc: Tympanic SpO2: 97% Weight: 120.7 kg (266 lb) Height: 1.6 m (5' 3") Exam: Const: No signs of acute distress present. Head/Face: Normal on inspection. Eyes: Conjunctivae clear. Pupils equal round and reactive to light. ENMT: Oropharynx: No erythema, exudate or masses. Posterior pharynx is normal. Neck: Supple and symmetric. Resp: Respiratory examination as outlined above CV: Rate is regular. Rhythm is regular. No heart murmur appreciated. Extremities: No edema of the lower limbs bilaterally. Skin: Skin is warm and dry. Neuro: Coordination normal. No involuntary movement. Psych: Patient's attitude is cooperative. Mood is normal. Affect is normal. Tests reviewed with the patient: US AAA SCREEN, RADIOLOGY Result Date: 06/12/2024 IMPRESSION: No focal abdominal aorta aneurysm Available Radiologic data was reviewed by me in PACS. The images were shown to the patient and findings were discussed with the patient. HOME MEDICATIONS: Fluticasone Propionate 50 MCG/ACT Nasal Suspension (Flonase) Comfort EZ Pen [place] 31G X 8 MM (Insulin Pen Needle) clonazePAM 0.5 MG Oral Tablet (KlonoPIN) Furosemide 40 MG Oral Tablet (Lasix) Rosuvastatin Calcium 5 MG Oral Tablet (Crestor) traMADol HCl 50 MG Oral Tablet (Ultram) Magnesium Oxide 400 MG Oral Tablet rOPINIRole HCl 2 MG Oral Tablet (Requip) Tresiba FlexTouch 100 UNIT/ML Subcutaneous Solution Pen-injector (Insulin Degludec) Gabapentin 300 MG Oral Capsule (Neurontin) Meclizine HCl 12.5 MG Oral Tablet (Antivert) Levothyroxine Sodium 200 MCG Oral Tablet (Levoxyl) Ondansetron HCl 4 MG Oral Tablet (Zofran) Mounjaro 7.5 MG/0.5ML Subcutaneous Solution Pen-injector (Tirzepatide) Dicyclomine HCl 20 MG Oral Tablet (Bentyl) Cholecalciferol 25 MCG (1000 UT) Oral Capsule traZODone HCl 50 MG Oral Tablet (Desyrel) DULoxetine HCl 60 MG Oral Capsule Delayed Release Particles (Cymbalta) Omeprazole 20 MG Oral Capsule Delayed Release (PriLOSEC) Potassium Chloride Ayleen ER 20 MEQ Oral Tablet Extended Release Senna-Time S 8.6-50 MG Oral Tablet (senna-docusate) OneTouch Verio In Vitro Strip (Glucose Blood) Ferrous Sulfate 325 (65 Fe) MG Oral Tablet (Feosol) Apixaban 2.5 MG Oral Tablet (Eliquis) Aspirin 81 MG Oral Tablet Delayed Release Plavix 75 MG Oral Tablet Dexcom G7 Sensor NovoLOG FlexPen 100 UNIT/ML Subcutaneous Solution Pen-injector (insulin aspart) Acetaminophen 500 MG Oral Tablet (Tylenol) DIURETIC TITRATION PLAN CPAP oxygen GAS ONETOUCH DELICA LANCETS 33G MISC Albuterol Sulfate (Proventil) (2.5 MG/3ML) 0.083% inhalation solution 2.5 mg Albuterol Sulfate (Proventil) (5 MG/ML) 0.5% *conc* inhalation solution 2.5 mg ROS: No reported history of Hemoptysis, Hematemesis, Melena No reported history of Dysuria, Hematuria, Flank Pain No reported history of chronic headache, seizures No reported history of Fall or trauma . No reported history of recent change in weight or appetite. Past Medical History: Diagnosis Date ELSIE (acute kidney injury) ([facility]) 06/12/2018 Allergic rhinitis due to other allergen Chronic hypoxemic respiratory failure ([facility]) 01/07/2022 Diverticulosis of colon 01/28/2006 Essential hypertension with goal blood pressure less than 140/90 02/22/2014 ELLIE (generalized anxiety disorder) 09/13/2009 Goiter [place] filter in place 08/19/2014 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[facility]) 08/22/2009 History of pulmonary embolus (PE) 07/16/2014 HTN, goal below 140/90 Hydronephrosis Impetigo 09/27/2018 Obesity, BMI not known Perforation of intestine ([facility]) 1996 COLON -- 1996 Pneumonia in aspergillosis(484.6) 09/14/2009 Recurrent deep vein thrombosis (DVT) of both lower extremities ([facility]) 01/07/2022 Sleep apnea, obstructive Spinal stenosis of lumbar region without neurogenic claudication 07/15/2020 Spontaneous pneumothorax 09/14/2009 Statin intolerance 07/16/2014 Type 2 diabetes mellitus with hemoglobin A1c goal of less than 8.0% ([facility]) 01/07/2022 Past Surgical History: Procedure Laterality Date ARTHROPLASTY KNEE TOTAL Right 07/24/2014 R COLONOSCOPY, DIAGNOSTIC (RECTUM) 02/18/2016 normal, repeat 10 yrs/[facility] COLONOSCOPY, GI REFERRAL OP 01/28/2006 diverticulosis--repeat 10 years INCISION OF [place], PLANNED 06/03/2011 TRACHEOSTOMY PLANNED performed by DANNY HOLDER at OR [facility] INJECT DX/THER SUBSTANCE INTERLAMINAR LUMBAR/SACRAL W IMAGE GUIDE 05/26/2020 INJECTION SPINE LUMBAR OR SACRAL performed by Raj Ahn DO at OR [facility] INJECT DX/THER SUBSTANCE INTERLAMINAR LUMBAR/SACRAL W IMAGE GUIDE 05/14/2021 INJECTION SPINE LUMBAR OR SACRAL performed by Raj Ahn, DO at OR [facility] INJECT DX/THER SUBSTANCE INTERLAMINAR LUMBAR/SACRAL W IMAGE GUIDE 08/13/2021 INJECTION SPINE LUMBAR OR SACRAL performed by Raj Ahn, DO at OR [facility] KNEE ARTHROSCOPY/DEBRIDEMENT 07/27/[address] PERMANENT GASTROSTOMY TUBE 09/06/2009 GASTROSTOMY WITH CONSTUCTION GASTRIC TUBE performed by AMADOU NUNEZ at [facility] REMOVAL OF THYROID GLAND 06/15/2011 THYROIDECTOMY INCLUDING SUBSTERNAL THYROID CERVICAL APPROACH performed by DANNY HOLDER at [facility] REMOVE GALLBLADDER 09/06/2009 CHOLECYSTECTOMY performed by AMADOU NUNEZ at [facility] REPAIR RECURRENT INCISIONAL HERNIA 09/26/1998 REVISION OF COLOSTOMY, SIMPLE 09/26/1997 SACROILIAC JOINT INJECT W/GUIDANCE 07/28/2020 INJECTION SACROILIAC JOINT performed by Raj Ahn, DO at OR [facility] SACROILIAC JOINT INJECT W/GUIDANCE 03/03/2022 INJECTION SACROILIAC JOINT performed by Raj Ahn, DO at OR [facility] SACROILIAC JOINT INJECT W/GUIDANCE 05/04/2023 INJECTION SACROILIAC JOINT performed by Raj Ahn DO at OR [facility] SUTURE, LARGE INTESTINE W/COLOSTOMY 09/26/1996 perforation R colon with colostomy TRANSCATH STENT-CAROTID ARTERY, W/EMBOL PROTECTION Right 09/06/2023 Dr. Tang VENA CAVA FILTER/LIGATION/CLIP 08/19/2009 [place] filter placement through the right femoral 08/19/[address] Lerma at [facility] Social History Socioeconomic History Marital status: Single Number of children: 0 Occupational History Occupation: Retired Tobacco Use Smoking status: Former Current packs/day: 0.00 Average packs/day: 1 pack/day for 15.0 years (15.0 ttl pk-yrs) Types: Cigarettes Start date: 08/26/1982 Quit date: 08/26/1997 Years since quittin.1 Passive exposure: Past Smokeless tobacco: Never Vaping Use Vaping status: Never Used Substance and Sexual Activity Alcohol use: Not Currently Comment: rare Drug use: No Sexual activity: Not Currently Social History Narrative 2 cats in her home. No mold. 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 (Adult - for ages 18 years and over): No Food Insecurity: No Food Insecurity (02/14/2024) Food Insecurity Do you need food for this week? (Adult - for ages 18 years and over): No Transportation Needs: No Transportation Needs (02/14/2024) Transportation Needs Do you have trouble getting a ride to medical visits or work? (Adult - for ages 18 years and over):Never True Social Connections: Socially Integrated (02/14/2024) Social Connections How often do you feel lonely or isolated from those around you? (Adult - for ages 18 years and over): Never Housing Stability: Low Risk (02/14/2024) Housing Stability Do you currently live in a skilled nursing or have no steady place to sleep at night? (Adult - for ages 18 years and over): No Do you think you are at risk of becoming homeless? (Adult - for ages 18 years and over): No Family History Problem Relation Name Age of Onset Cancer Mother liver - age 45 Cancer Father lung - age 74 (smoker) Heart Disorder Brother age 45 - possible tumor COPD Brother Diabetes Grandmother (Paternal) Cancer Grandfather (Paternal) bone ca - in 70's Bipolar Disorder Niece Breast Cancer No significant family history Review of patient's allergies indicates: Allergen Reactions Bupropion Other reaction(s): Recurrent falls as per patient Heparin Heparin Induced Thrombocytopenia Jardiance [Empagliflozin] Other (Please comment) 3 yeast infections in 6 weeks after starting Codeine hallucination Farxiga [Dapagliflozin] Other (Please comment) Yeast infection Hay Fever [Pollen] Hydrocodone Neuro complications (Please comment) Morphine And Codeine Hallucinations Tetanus Toxoid Other (Please comment) Passed out documented in this encounter Nursing Notes * Kika Dsouza LPN - 10/11/2024 7:18 AM EST Chief Complaint Patient presents with Follow Up Return pulm. Patient wants portable oxygen . Interstitial lung disease. Interm History/Respiratory Symptoms Cough: yes-no phlegm Hemoptysis: no Sinus Symptoms: yes-congestion/drainage Hospitalizations: no ED Trips: no Triggers: pollen,dust, perfume, cold weather Nocturnal: sleeps on one pillow CPAP/BiPAP/O2: hasn't been using CPAP-was getting nose bleeds. O2 4L DME Supplier: [employer] Flu Vaccine: 2023 Pneumovax: 2008 Prevnar: 2021 COVID 19: x6 . MMRC Dyspnea Scale = 3 (I stop for breath after walking about 100 yards or after a few minutes on ground level) documented in this encounter Plan of Treatment Upcoming Encounters Date Type Department Care Team (Late st Contact Info) Description 10/22/2024 1:40 PM EST Office Visit Family Practice [address] [place] [address] [address] [place] [address] Galdino Andujar, DO [address] [place] [address] 11/08/2024 1:00 PM EST PulmDiagnostic Pulmonary Function Lab, [facility] [address] [facility] [place] [address] [place], [address] [facility] [id number] 11/08/2024 1:30 PM EST PulmDiagnostic Pulmonary Function Lab, [facility] [address] [facility] [place] [address] [place], [address] [facility] [place] [id number] 11/08/2024 2:30 PM EST Imaging Radiology [facility]st [facility] [place] [facility] [id number] 12/19/2024 1:30 PM EDT Office Visit Pulmonary Medicine, [facility] [address] [place] [address] Jhonny Holley MD [address] [place] [id number] 06/13/2025 1:30 PM EDT Imaging Radiology [facility] 1st [facility] [address] [place] [phone] Scheduled Orders Name Type Priority Associated Diagnoses Orde r Schedule PULMONARY STRESS TESTING Procedures Routine ILD (interstitial lung disease) (HCC) Chronic respiratory failure with hypoxia (HCC) Expected: 10/12/2024, Expires: 11/11/2025 DIFFUSION CAPACITY (DLCO) Procedures Routine ILD (interstitial lung disease) (HCC) Chronic respiratory failure with hypoxia (HCC) Expected: 10/18/2024, Expires: 11/11/2025 LUNG VOLUMES (PLETHYSMOGRAPHY) Procedures Routine ILD (interstitial lung disease) (HCC) Chronic respiratory failure with hypoxia (HCC) Expected: 10/18/2024, Expires: 11/11/2025 SPIROMETRY B/A BRONCHODILATOR Procedures Routine ILD (interstitial lung disease) (HCC) Chronic respiratory failure with hypoxia (HCC) Expected: 10/18/2024, Expires: 11/11/2025 NITRIC OXIDE GAS DETERMINATION Procedures Routine Cough variant asthma Eosinophilic asthma Expected: 10/18/2024, Expires: 11/11/2025 CT CHEST WO CONTRAST Medical Imaging Routine ILD (interstitial lung disease) (HCC) Chronic respiratory failure with hypoxia (HCC) Expected: 10/12/2024, Expires: 11/11/2025 Scheduled Procedures Name Priority Associated Diagnoses Date/Ti me COLONOSCOPY FLEXIBLE PROXIMAL DIAGNOSTIC Recall Colon cancer screening Health Maintenance Due Date Last Done Comments Cologuard 2000 Fecal Occult Blood Test 2000 Sigmoidoscopy 2000 Albumin/Creatinine Ratio 08/05/2024 023, 11/01/2022, 01/07/2022, Additional history exists Diabetic Foot Exam 10/04/2024 10/04/2023, 0 11/01/2022, 01/07/2022, Additional history exists TSH 12/21/2024 12/22/2023, 09/26, 11/01/2022, Additional history exists HbA1c 12/25/2024 06/26/2024, 09/2023, 12/22/2023, Additional history exists CKD PHOS USE SMARTSET [id number] 12/26/2024 040 10/2023, 02/11/2023, 01/07/2022, Additional history exists Adult Wellness Visit 02/13/2025 02/14/2024, 08/05/20 22 GFR 03/18/2025 09/17/2024, 09/2023, 05/18/2024, Additional history exists Mammogram 06/12/2025 06/12/2024, 05/27, 04/21/2023, Additional history exists Diabetic Eye Exam 07/06/2025 07/06/2024, , 07/06/2024, Additional history exists Depression Monitoring 09/07/2025 09/07/2024, 024 CKD HGB USE SMARTSET [id number] 10/11/202510/11, 10/11/2024, 09/17/2024, Additional history exists Colonoscopy [...] and CKD stage 3 ([facility])- Primary Fibromyalgia Mylagia and myositis, unspecified [...] major depressive disorder ([facility]) Advanced care planning/counseling discussion Other specified counseling ILD (interstitial lung disease) ([facility])- Primary Postinflammatory pulmonary fibrosis Fibromyalgia Mylagia and myositis, unspecified Moderate episode of recurrent major depressive disorder ([facility]) Primary osteoarthritis of both knees Primary localized osteoarthrosis, lower leg Chronic hypoxemic respiratory failure (HCC) Chronic respiratory failure 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 3b chronic kidney disease ([facility]) Advanced care planning/counseling discussion- Primary Other specified counseling Atherosclerosis of [place] coronary artery of [place] heart without angina pectoris Carotid artery stenosis, asymptomatic, right Essential hypertension with goal blood pressure less than 140/[address] [place] [address] Other postprocedural status Hypertensive [...] less than 8.0% ([facility]) Fibromyalgia Mylagia and myositis, unspecified Restless legs syndrome Restless legs syndrome (RLS) Chronic kidney disease, stage 3b ([facility]) History of pulmonary embolus (PE) Personal history of pulmonary embolism Moderate episode of recurrent major depressive disorder ([facility]) Advanced care planning/counseling discussion- Primary Other specified counseling Atherosclerosis of [place] coronary artery of [place] heart without angina pectoris [place] filter in place Other postprocedural status Hypertensive [...] asthma Pulmonary eosinophilia ILD (interstitial lung disease) (HCC) Postinflammatory pulmonary fibrosis Chronic respiratory failure with hypoxia (HCC) Chronic respiratory failure Screening mammogram for breast cancer documented in this encounter Advance Directives Documents on File Type Date Recorded 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
--- OUTSIDE RECORDS SUMMARY | 2024-12-09 19:28 | External Medical Summary | Summary of Care ---
Author Name Unknown Organization [facility] Address [address] [place] [address] Phone [phone] Care Team Providers Care Community Action Worker Name Role Phone Galdino Andujar DO Primary Care Provider [phone] Reason for Visit * Reason Onset Date Comments [facility]: Maintenance 07/11/2024 Encounter Details Date Type Department Care Team (Late st Contact Info) Description 07/11/2024 Telephone [facility], [facility] [address] [place] [address] Jarrett Mathis, LEXI [address] [place] [address] [facility]: Maintenance Allergies Active Allergy [...] as of this encounter (statuses as of 10/12/2024) Medications ONETOUCH DELICA LANCETS 33G MISC Check blood sugars 3-4 times daily 180 Each 5 018 Active oxygen GASIndications:OS A (obstructive sleep apnea) Use 3 L/min(Oxygen) as directed continuous. Active CPAP every night at bedtime. Active Acetaminophen 500 MG Oral Tablet (Tylenol) Take 2 Tablets by mouth in the morning and 2 Tablets at noon and 2 Tablets before bedtime. 100 Tablet Active DIURETIC TITRATION PLAN If no improvement on day 3, contact heart failure managing provider. 1 Each Active NovoLOG FlexPen 100 UNIT/ML Subcutaneous Solution Pen-injector (insulin aspart)Indication s:Type 2 diabetes mellitus with hemoglobin A1c goal of 7.0%-8.0% ([facility]) Inject 8 units with breakfast and 6 units lunch and 10 units with dinner + sliding scale 1 units for every 30 units BG > 150. 150 mL 3 023 Active Dexcom G7 Sensor Use as directed. (From [facility]) Active Plavix 75 MG Oral Tablet Take 1 Tablet by mouth in the morning. 023 Active Aspirin 81 MG Oral Tablet Delayed Release Take 1 Tablet by mouth in the morning. Active Apixaban 2.5 MG Oral Tablet (Eliquis) Take 1 Tablet by mouth in the morning and 1 Tablet before bedtime. 60 Tablet 11 Active Ferrous Sulfate 325 (65 Fe) MG Oral Tablet (Feosol)Indicatio ns:Anemia Take 1 Tablet by mouth in the morning and 1 Tablet before bedtime. 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, NYHA class 1 and CKD stage 3 ([facility]),Chronic diastolic congestive heart failure (HCC) TAKE 1 TABLET BY MOUTH IN THE MORNING AND AT BEDTIME 60 Tablet 5 Active DULoxetine HCl 60 MG Oral Capsule Delayed Release Particles (Cymbalta)Indicat ions:Fibromyalgia ,Major depressive disorder, recurrent, moderate (HCC) TAKE 1 CAPSULE BY MOUTH ONCE DAILY IN THE MORNING 30 Capsule 5 Active Omeprazole 20 MG Oral Capsule Delayed Release (PriLOSEC)Indicat ions:Gastroesopha geal reflux disease with esophagitis without hemorrhage TAKE 1 CAPSULE BY MOUTH ONCE DAILY IN THE MORNING 30 Capsule Active traZODone HCl 50 MG Oral Tablet (Desyrel) Take 1 Tablet by mouth at bedtime. 30 Tablet 5 Active Cholecalciferol 25 MCG (1000 UT) Oral Capsule Take 1 capsule by mouth once daily in the morning 30 Capsule Active Dicyclomine HCl 20 MG Oral Tablet (Bentyl)Indicatio ns:Irritable bowel syndrome, unspecified type Take 1 Tablet by mouth 4 times a day as needed for Cramping. 180 Tablet 3 Active Mounjaro 7.5 MG/0.5ML Subcutaneous Solution Pen-injector (Tirzepatide)Aurea cations:Type 2 diabetes mellitus with stage 3b chronic kidney disease, with long-term current use of insulin ([facility]) Inject 7.5 mg under the skin once a week. 2 mL 11 Active Ondansetron HCl 4 MG Oral Tablet (Zofran)Indicatio ns:Dizziness and giddiness Take 1 Tablet (4 mg) by mouth every 6 hours as needed for Nausea. 90 Tablet 6 Active BD Pen Needle Short U/F 31G X 8 MM (Insulin Pen Needle) use five times daily 500 Each 3 023 2023 Discontinued Tresiba FlexTouch 100 UNIT/ML Subcutaneous Solution Pen-injector (Insulin Degludec)Indicati ons:Type 2 diabetes mellitus with hemoglobin A1c goal of 7.0%-8.0% (HCC) INJECT 50 UNITS UNDER THE SKIN IN THE EVENING 60 mL 3 023 2023 Discontinued Atorvastatin Calcium 20 MG Oral Tablet (Lipitor) Take 1 Tablet by mouth in the morning. Prescribed by Carmen Waggoner PA-C. 2023 Discontinued(A dverse reaction) Triamcinolone Acetonide 0.5 % External Cream (Aristocort)Indic ations:Dermatitis Apply topically to affected area 2 times a day. 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 (at least 30 min prior to breakfast or other meds) 30 Tablet 5 024 2023 Discontinued Doxycycline Hyclate 100 MG Oral Capsule Take 1 Capsule by mouth in the morning and 1 Capsule before bedtime. 024 2023 Discontinued(E nd of Procedure) Furosemide 40 MG Oral Tablet (Lasix)Indication s:Chronic diastolic congestive heart failure (HCC) Take 1.5 Tablets by mouth 2 times a day. 84 Tablet 5 024 2023 Discontinued(R efill) DULoxetine HCl 30 MG Oral Capsule Delayed Release Particles (Cymbalta)Indicat ions:Fibromyalgia ,Major depressive disorder, recurrent, moderate (HCC) Take 1 Capsule by mouth in the morning. 28 Capsule 5 024 2023 Discontinued(M edication/Dose Changed) clonazePAM 0.5 MG Oral Tablet (KlonoPIN)Indicat ions:Restless legs syndrome,Anxiety state TAKE 1 TABLET BY MOUTH THREE TIMES A DAY 84 Tablet 024 2023 Discontinued traMADol HCl 50 MG Oral Tablet (Ultram)Indicatio ns:Lumbar radiculopathy,Nicolette emi osteoarthritis of left knee Take 1 Tablet by mouth every 8 hours as needed for Pain, Severe. 90 Tablet 2023 Discontinued(R efill) Gabapentin 300 MG Oral Capsule (Neurontin)Indica tions:Fibromyalgi a Take 1 Capsule by mouth in the morning and 1 Capsule at noon and 1 Capsule before bedtime. 2023 Discontinued(R efill) documented as of this encounter (statuses as of 10/12/2024) Active Problems Problem Noted Date Diagnosed Date [...] vascular, reports upcoming carotid surgery at [facility]. She states she has rx for atorvastatin and plavix to moss picker at pharmacy. Type 2 diabetes [...] 8:05 AM EDT): Home PT to start [place] filter in place 08/19/2014 History of pulmonary [...] rx evidently given by vascular, has to moss picker rx documented as of this encounter (statuses as of 10/12/2024) Resolved Problems Problem Noted Date Diagnosed Date [...] as of this encounter (statuses as of 10/12/2024) Immunizations Name Administration Dates Next Due COVID-19 mRNA, LNP-s, No Pre serve, 2-Dose Series ([employer]) 01/08/2021,12/18/2020 COVID-19, LNP-s, No Preserve , Navarro-sucrose, Ages 12+ (Pfizer) 2022,10/01/2021 COVID-19, MRNA-LNP, PF, 30 M CG/0.3 mL, 12 YRS AND ABOVE, IM (PFIZER-Comirnat) 07/26/2023 Pneumococcal Conjugate Vacci ne, 20-valent ([id number]) 03/12/2022 Pneumococcal Polysaccharide PPV23 (Pneumovax) 08/22/2009,06/15/2006 RSV [...] Answer Date Recorded PHQ Adult Total Score 8 02/14/2024 Hunger Vital Sign Answer Date Recorded Within [...] 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 Device(s)/IVR to be discontinued: 07/11/24 due to non-compliance. Thank you. documented in this encounter Plan of Treatment Upcoming Encounters Date Type Department Care Team (Late st Contact Info) Description 10/22/2024 1:40 PM EST Office Visit Family Practice [address], [place] [address] [facility], [place] [address] Galdino Andujar, DO 293 [facility], [place] [address] 11/08/2024 1:00 PM EST PulmDiagnostic Pulmonary Function Lab, [facility] [address] [facility] [place] [address] [place], [address] [place], [place] [address] [phone] 11/08/2024 1:30 PM EST PulmDiagnostic Pulmonary Function Lab, [facility] [address] [facility] [place] [address] [place], [address] [place], [place] [address] [address] 11/08/2024 2:30 PM EST Imaging Radiology [address] 132 [facility] [place] [phone] 12/19/2024 1:30 PM EDT Office Visit Pulmonary Medicine, [facility] [address] [facility] [place] [address] Jhonny Holley MD [address] [place] [address] 06/13/2025 1:30 PM EDT Imaging Radiology [address] [place] [address] Scheduled Procedures Name Priority Associated Diagnoses [...] Additional history exists CKD PHOS USE SMARTSET 37281 12/26/2024 04/0 10/2023, 02/11/2023, 01/07/2022, Additional history exists Adult Wellness Visit 02/13/2025 02/14/2024, 08/05/20 22 GFR 03/18/2025 09/17/2024, 1009/2023, 05/18/2024, Additional history exists Mammogram 06/12/2025 06/12/2024, 05/27, 04/21/2023, Additional history exists Diabetic Eye Exam 07/06/2025 07/06/2024, , 07/06/2024, Additional history exists Depression Monitoring 09/07/2025 09/07/2024, 024 CKD HGB USE SMARTSET 66096 10/11/202510/11, 10/11/2024, 09/17/2024, Additional history exists Colonoscopy [...] Documents on File Type Date Recorded Patient Equipment Superintendent Expl anation POLST 03/19/2020 4:25 PM [...] (no specific identity) Health Care Power of Extruding Press Operator Princess Other - (no specific identity) Health Care Power of Extruding Press Operator Care Teams Community Action Worker Relationship Specialty Start Date End Date Galdino Andujar DO [address] [place] [address] [place] [address] PCP - General Internal Medicine 03/08/24 documented as of this encounter
--- OUTSIDE RECORDS SUMMARY | 2024-12-09 19:28 | External Medical Summary | Summary of Care ---
Author Name Unknown Organization [facility] Address [address] [place] [address] Phone [phone] Care Team Providers Care Chassis Engineer Name Role Phone Galdino Andujar DO Primary Care Provider [phone] Reason for Referral * Precert (Within 10 days (routine)) - Authorized Specialty Diagnoses / Procedures Referred By Contac t Referred To Contact Radiology Diagnoses ILD (interstitial lung disease) (HCC) Chronic respiratory failure with hypoxia (HCC) Procedures CT CHEST WO CONTRAST Jhonny Holley MD [address] [place] [address] Phone: tel: fax: Referral ID Status Reason Start Date Expiration Date V isits Requested Visits Authorized [id number] Authorized 10/12/[phone] Reason for Visit [...] lung disease) (HCC) Galdino Andujar DO [address] [place] [address] Phone: tel: fax: Referral ID Status Reason Start Date Expiration Date Visits Requested Visits Authorized [id number] Authorized Specialty Services Required 4 [phone] Encounter Details Date Type Department Care Team (Late st Contact Info) Description 10/11/2024 7:40 AM EST Office Visit Pulmonary Medicine, [facility] [address] [place] [address] Jhonny Holley MD [address] [place] [phone] Cough variant asthma*; Eosinophilic asthma; ILD (interstitial lung disease) ([facility]); Chronic respiratory failure with hypoxia ([facility]) Allergies Active Allergy Reactions Criticality Noted Date [...] [place]) Inject 8 units with breakfast and 6 units lunch and 10 units with dinner + sliding scale 1 units for every 30 units BG > 150. 150 mL 3 05/16/20 23 Active Dexcom G7 Sensor Use as directed. (From [facility]) 06/01/20 23 Active Plavix 75 MG [...] ([facility]) Inject 7.5 mg under the skin once [...] ([facility]) INJECT 38 UNITS UNDER THE SKIN IN [...] Tablet 09/20/20 24 Active Comfort EZ Pen [place] 31G X 8 MM (Insulin Pen Needle) [...] by vascular, reports upcoming carotid surgery at [facility]. She states she has rx for atorvastatin and plavix to order picker/assembler at pharmacy. 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 Atherosclerosis of [place] co ronary artery without angina pectoris 12/31/2021 [...] evidently given by vascular, has to order picker/assembler rx documented as of this encounter (statuses [...] mRNA, LNP-s, No Pre serve, 2-Dose Series ([employer]) 01/08/2021,12/18/2020 COVID-19, LNP-s, No Preserve , Navarro-sucrose, Ages 12+ (Pfizer) 2022,10/01/2021 COVID-19, MRNA-LNP, PF, 30 M CG/0.3 mL, 12 YRS AND ABOVE, IM (PFIZER-Comirnaty) 07/31/2024,07/26/2023 Pneumococcal Conjugate Vacci ne, 20-valent ([id number]) 03/12/2022 Pneumococcal Polysaccharide PPV23 (Pneumovax) 08/22/2009,06/15/2006 RSV [...] 10/11/2024 7:37 AM EST 10/11/2024 Pulmonary Medicine, [facility] [address] [place] [phone] Stephanie Talbot Sebastianandrews 1955 female 69 year [...] getting nose bleeds. O2 4L DME Supplier: [employer] Flu Vaccine: 2023 Pneumovax: 2008 Prevnar: 2021 [...] MCG/ACT Nasal Suspension (Flonase) Comfort EZ Pen [place] 31G X 8 MM (Insulin Pen Needle) [...] Chronic hypoxemic respiratory failure ([facility]) 01/07/2022 Diverticulosis of colon 01/28/2006 Essential hypertension with goal blood pressure less than 140/90 02/22/2014 ELLIE (generalized anxiety disorder) 09/13/2009 Goiter [place] filter in place 08/19/2014 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[facility]) 08/22/2009 History of pulmonary embolus (PE) 07/16/2014 HTN, goal below 140/90 Hydronephrosis Impetigo 09/27/2018 Obesity, BMI not known Perforation of intestine ([facility]) 1996 COLON -- 1996 Pneumonia in aspergillosis(484.6) 09/14/2009 Recurrent deep vein thrombosis (DVT) of both lower extremities ([facility]) 01/07/2022 Sleep apnea, obstructive Spinal stenosis of lumbar region without neurogenic claudication 07/15/2020 Spontaneous pneumothorax 09/14/2009 Statin intolerance 07/16/2014 Type 2 diabetes mellitus with hemoglobin A1c goal of less than 8.0% ([facility]) 01/07/2022 Past Surgical History: Procedure Laterality Date ARTHROPLASTY KNEE TOTAL Right 07/24/2014 R COLONOSCOPY, DIAGNOSTIC (RECTUM) 02/18/2016 normal, repeat 10 yrs/[facility] COLONOSCOPY, GI REFERRAL OP 01/28/2006 diverticulosis--repeat 10 years INCISION OF [place], PLANNED 06/03/2011 TRACHEOSTOMY PLANNED performed by DANNY HOLDER at [place] [facility] INJECT DX/THER SUBSTANCE INTERLAMINAR LUMBAR/SACRAL W IMAGE GUIDE 05/26/2020 INJECTION SPINE LUMBAR OR SACRAL performed by Raj Ahn DO at OR [facility] INJECT DX/THER SUBSTANCE INTERLAMINAR LUMBAR/SACRAL W IMAGE GUIDE 05/14/2021 INJECTION SPINE LUMBAR OR SACRAL performed by Raj Ahn, DO at OR [facility] INJECT DX/THER SUBSTANCE INTERLAMINAR LUMBAR/SACRAL W IMAGE GUIDE 08/13/2021 INJECTION SPINE LUMBAR OR SACRAL performed by Raj Ahn, DO at OR [facility] KNEE ARTHROSCOPY/DEBRIDEMENT 07/27/[address] PERMANENT GASTROSTOMY TUBE 09/06/2009 GASTROSTOMY WITH CONSTUCTION GASTRIC TUBE performed by AMADOU NUNEZ at [facility] REMOVAL OF THYROID GLAND 06/15/2011 THYROIDECTOMY INCLUDING SUBSTERNAL THYROID CERVICAL APPROACH performed by DANNY HOLDER at [facility] REMOVE GALLBLADDER 09/06/2009 CHOLECYSTECTOMY performed by AMADOU NUNEZ at [facility] REPAIR RECURRENT INCISIONAL HERNIA 09/26/1998 REVISION OF COLOSTOMY, SIMPLE 09/26/1997 SACROILIAC JOINT INJECT W/GUIDANCE 07/28/2020 INJECTION SACROILIAC JOINT performed by Raj Ahn, DO at OR [facility] SACROILIAC JOINT INJECT W/GUIDANCE 03/03/2022 INJECTION SACROILIAC JOINT performed by Raj Ahn, DO at OR [facility] SACROILIAC JOINT INJECT W/GUIDANCE 05/04/2023 INJECTION SACROILIAC JOINT performed by Raj Ahn DO at OR [facility] SUTURE, LARGE INTESTINE W/COLOSTOMY 09/26/1996 perforation R colon with colostomy TRANSCATH STENT-CAROTID ARTERY, W/EMBOL PROTECTION Right 09/06/2023 Dr. Tang VENA CAVA FILTER/LIGATION/CLIP 08/19/2009 [place] filter placement through the right femoral 08/19/[address] Lerma at [facility] Social History Socioeconomic History Marital status: Single [...] her home. No mold. 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 Social Needs Financial Resource Strain: Low Risk [...] Stability Do you currently live in a detention or have no steady place to sleep [...] getting nose bleeds. O2 4L DME Supplier: [employer] Flu Vaccine: 2023 Pneumovax: 2008 Prevnar: 2021 COVID 19: x6 . MMRC Dyspnea Scale = 3 (I stop for breath after walking about 100 yards or after a few minutes on ground level) documented in this encounter Plan of Treatment Upcoming Encounters Date Type Department Care Team (Late st Contact Info) Description 10/22/2024 1:40 PM EST Office Visit Family Practice [address] [place] [address] [address] [place] [address] Galdino Andujar, DO [address] [place] [address] 11/08/2024 1:00 PM EST PulmDiagnostic Pulmonary Function Lab, [facility] 132 [facility] [place] [address] [place], [address] [facility] [address] 11/08/2024 1:30 PM EST PulmDiagnostic Pulmonary Function Lab, [facility] [address] [facility] [place] [address] [place], [address] [facility] [place] [address] 11/08/2024 2:30 PM EST Imaging Radiology [facility] 1st [facility] [place] [facility] [phone] 12/19/2024 1:30 PM EDT Office Visit Pulmonary Medicine, [facility] [address] [place] [address] Jhonny Holley MD [address] [place] [phone] 06/13/2025 1:30 PM EDT Imaging Radiology [facility] 1st [facility] [address] [place] [phone] Scheduled [...] Additional history exists CKD PHOS USE SMARTSET 73511 12/26/2024 040 10/2023, 02/11/2023, 01/07/2022, Additional history exists Adult Wellness Visit 02/13/2025 02/14/2024, 08/05/20 22 GFR 03/18/2025 09/17/2024, 09/2023, 05/18/2024, Additional history exists Mammogram 06/12/2025 06/12/2024, 05/27, 04/21/2023, Additional history exists Diabetic Eye Exam 07/06/2025 07/06/2024, , 07/06/2024, Additional history exists Depression Monitoring 09/07/2025 09/07/2024, 024 CKD HGB USE SMARTSET 32371 10/11/202510/11, 10/11/2024, 09/17/2024, Additional history exists Colonoscopy [...] stage 3 ([facility] Primary Fibromyalgia Mylagia and myositis, unspecified Primary [...] disorder ([facility]) Advanced care planning/counseling discussion Other specified counseling ILD (interstitial lung disease) ([facility] Primary Postinflammatory pulmonary fibrosis Fibromyalgia Mylagia and myositis, unspecified Moderate episode of recurrent major depressive disorder ([facility]) Primary osteoarthritis of both knees Primary localized osteoarthrosis, lower leg Chronic hypoxemic respiratory failure (HCC) Chronic respiratory failure 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 3b chronic kidney disease ([facility]) Advanced care planning/counseling discussion- Primary Other specified counseling Atherosclerosis of [place] coronary artery of [place] heart without angina pectoris Carotid artery stenosis, asymptomatic, right Essential hypertension with goal blood pressure less than 140/[address] Other postprocedural status Hypertensive [...] 8.0% ([facility]) Fibromyalgia Mylagia and myositis, unspecified Restless legs syndrome Restless legs syndrome (RLS) Chronic kidney disease, stage 3b ([facility]) History of pulmonary embolus (PE) Personal history of pulmonary embolism Moderate episode of recurrent major depressive disorder ([facility]) Advanced care planning/counseling discussion- Primary Other specified counseling Atherosclerosis of [place] coronary artery of [place] heart without angina pectoris [place] filter in place Other postprocedural status Hypertensive [...] Documents on File Type Date Recorded Patient Ocean Freight Forwarder Expl anation POLST 03/19/2020 4:25 PM POLST [...] (no specific identity) Health Care Power of Concession Supervisor Princess Other - (no specific identity) Health Care Power of Concession Supervisor Care Teams Chassis Engineer Relationship Specialty Start Date End Date Galdino Andujar DO [address] [place] [address] PCP - General Internal Medicine 03/08/24 documented as of this encounter
--- OUTSIDE RECORDS SUMMARY | 2024-12-09 19:28 | External Medical Summary | Summary of Care ---
Author Name Unknown Organization [facility] Address [address] [place] [address] Phone [phone] Care Team Providers Care Convex Grinder Name Role Phone Galdino Andujar DO Primary Care Provider [phone] Reason for Visit * Reason Onset Date Comments Back Pain 10/12/2024 Back pain Information 10/12/202410/12 Encounter Details Date Type Department Care Team (Late st Contact Info) Description 10/12/2024 Telephone Family Practice [address] [facility], [place] [address] [place] [id number] Galdino Andujar DO [address] [place], [place] [id number] Back Pain (Back pain); Information (10/12) Allergies Active Allergy Reactions Criticality Noted Date [...] (statuses as of 10/12/2024) Medications ONETOUCH DELICA LANCBETTY 33G [facility] [place] Dexcom G7 Sensor Use as directed. 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, NYHA class 1 and CKD stage 3 (HCC),Chronic diastolic congestive heart failure (HCC) TAKE 1 TABLET BY MOUTH IN THE MORNING AND AT BEDTIME 60 Tablet 5 04/18/20 24 Active DULoxetine HCl 60 MG Oral Capsule Delayed Release Particles (Cymbalta)Indicati ons:Fibromyalgia,M ajor depressive disorder, recurrent, moderate (HCC) TAKE 1 CAPSULE BY MOUTH ONCE DAILY IN THE MORNING 30 Capsule 5 04/18/20 24 Active Omeprazole 20 MG Oral [...] of 7.0%-8.0% ([facility]) INJECT 38 UNITS UNDER THE SKIN IN THE EVENING 15 mL 5 08/20/20 24 Active Additional Information Patient taking differently: 41 Units Subcutaneous DAILY(1900), Per MTDM, Reported on 10/11/2024 rOPINIRole HCl 2 MG [...] Tablet 09/20/20 24 Active Comfort EZ Pen [place] 31G X 8 MM (Insulin Pen Needle) [...] reports upcoming carotid surgery at [facility]. She states she has rx for atorvastatin and plavix to pecan picker at pharmacy. Type 2 diabetes mellitus [...] 8:05 AM EDT): Home PT to start Bryson filter in place 08/19/2014 History of pulmonary [...] rx evidently given by vascular, has to pecan picker rx documented as of this encounter [...] (PFIZER-Comirnaty) 07/31/2024,07/26/2023 Pneumococcal Conjugate Vacci ne, 20-valent ([id number]) 03/12/2022 Pneumococcal Polysaccharide PPV23 (Pneumovax) 08/22/2009,06/15/2006 RSV [...] Telephone Encounter - Flaca Springer LPN - 10/12/2024 12:15 PM EST Call placed to patient and relayed information from Dr. Andujar. Pt acknowledged understanding. No questions at this time. * Telephone Encounter - Galdino Andujar DO - 10/12/2024 11:57 AM EST Start Tizanidine 2 mg three times a day as needed for 1 week * Telephone Encounter - Flaca Springer LPN - 10/12/2024 11:47 AM EST Call placed to patient for more information. Pt states she injured her back lifting some things a couple of days ago. Was trying to see if it would resolve on its own, but has not. Pain is on the right side mid back. States she has a stent in that kidney, but does feels if she had a problem with her kidney she would have fever or bladder symptoms, which she does not. States the pain is a constant 6.5 but can go up as high as a 10. Has tried ice/heat, tylenol, tramadol without much relief. States tramadol dulls the pain. Requesting a muscle relaxant to help with pain and allow her to sleep. Please advise. Pharmacy confirmed - [facility]. * Telephone Encounter - Shantell Acevedo OSA - 10/12/2024 9:55 AM EST Pt called and states she would like to talk to nurse She states she needs Dr Andujar to send her prescription for muscle relaxer She hurt her back [facility] Please advise [phone] documented in this encounter Plan of Treatment Upcoming Encounters Date Type Department Care Team (Late st Contact Info) Description 10/22/2024 1:40 PM EST Office Visit Family Practice [address] [place] [address], [place] [address] [place] [address] Galdino Andujar, DO 293 [place] [address] 11/08/2024 1:00 PM EST PulmDiagnostic Pulmonary Function Lab, [facility] [address] [facility] [place] [address] [address], [address] 132 [facility] [place] [address] 11/08/2024 1:30 PM EST PulmDiagnostic Pulmonary Function Lab, [facility] [address] [facility] [place] [address] [address], [address] [facility] [place] [address] 11/08/2024 2:30 PM EST Imaging Radiology [address] [facility] [place] [phone] 12/19/2024 1:30 PM EDT Office Visit Pulmonary Medicine, [facility] [address] [facility] [place] [address] Jhonny Holley MD [address] [place] [address] 06/13/2025 1:30 PM EDT Imaging Radiology [address] [facility] [place] [phone] Scheduled Procedures Name Priority Associated Diagnoses Date/Ti me COLONOSCOPY FLEXIBLE PROXIMAL DIAGNOSTIC Recall Colon cancer screening Health Maintenance Due Date Last Done Comments Cologuard 2000 Fecal Occult Blood Test 2000 Sigmoidoscopy 2000 Albumin/Creatinine Ratio 08/05/2024 023, 11/01/2022, 01/07/2022, Additional history exists Diabetic Foot Exam 10/04/2024 10/04/2023, 0 11/01/2022, 01/07/2022, Additional history exists TSH 12/21/2024 12/22/2023, 09/26, 11/01/2022, Additional history exists HbA1c 12/25/2024 06/26/2024, 0709/2023, 12/22/2023, Additional history exists CKD PHOS USE SMARTSET 66360 12/26/2024 04/0 10/2023, 02/11/2023, 01/07/2022, Additional history exists Adult Wellness Visit 02/13/2025 02/14/2024, 08/05/20 22 GFR 03/18/2025 09/17/2024, 100 09/2023, 05/18/2024, Additional history exists Mammogram 06/12/2025 06/12/2024, 05/27, 04/21/2023, Additional history exists Diabetic Eye Exam 07/06/2025 07/06/2024, , 07/06/2024, Additional history exists Depression Monitoring 09/07/2025 09/07/2024, 024 CKD HGB USE SMARTSET 50007 10/11/202510/11, 10/11/2024, 09/17/2024, Additional history exists Colonoscopy [...] discussion- Primary Other specified counseling Atherosclerosis of [place] coronary artery of [place] heart without angina pectoris Carotid artery stenosis, asymptomatic, right Essential hypertension with goal blood pressure less than 140/[address] Other postprocedural status Hypertensive [...] discussion- Primary Other specified counseling Atherosclerosis of [place] coronary artery of [place] heart without angina pectoris Bryson filter in place Other postprocedural status Hypertensive [...] with long-term current use of insulin (HCC) Spasm of muscle- Primary Screening mammogram for breast cancer documented [...] specific identity) Health Care Power of Emergency Worker Princess Other - (no specific identity) Health Care Power of Emergency Worker Care Teams Convex Grinder Relationship Specialty Start Date End Date Galdino Andujar DO [address] [place] [address] PCP - General Internal Medicine 03/08/24 documented as of this encounter
--- OUTSIDE RECORDS SUMMARY | 2024-12-09 19:28 | External Medical Summary | Summary of Care ---
Author Name Unknown Organization [facility] Address [address] [place] [address] Phone [phone] Care Team Providers Care Mechanical Handyman Name Role Phone Galdino Andujar DO Primary Care Provider [phone] Reason for Referral * Social Care (Within 10 days (routine)) - Authorized Specialty Diagnoses / Procedures Referred By Contsandie t Referred To Contact Partition Assembler Diagnoses Moderate episode of recurrent major depressive disorder (HCC) Jarrett Mathis RN [address] [employer] [place] [address] Phone: tel: fax: Referral ID Status Reason Start Date Expiration Date Visits Requested Visits Authorized [id number] Authorized Specialty Services Required 05/24/[phone] Question Answer Referral Priority Within 10 days (routine) Where should this appointment be scheduled? [facility] Role Behavioral Health Partition AssemblerRegional Clinical Director Health Partition Assembler Referral Reason Depression (PHQ-9>10) Comments Is patient being transitioned from [facility] to Complex Case Management? No Pt mood fluctuates from one extreme to another- one visit will be sad, crying, saying her life is terrible, with many worries- next visit will be elated, without any concerns, showing this RN new purchases- recently felt better and quit seeing Psychiatry, makes poor financial decisions. Encounter Details Date Type Department Care Team (Late st Contact Info) Description 05/24/2024 10:00 AM EDT [facility] [place] [address] [employer] [place] [address] Jarrett Mathis, RN [address] [place] [address] Moderate episode of recurrent major depressive disorder (HCC)* Allergies Active Allergy Reactions Criticality Noted [...] Dexcom G7 Sensor Use as directed. (From [facility]) 023 Active Plavix 75 MG Oral Tablet Take 1 Tablet by mouth in the morning. 10/16/2 023 Active Aspirin 81 MG Oral Tablet Delayed Release Take 1 Tablet by mouth in the morning. Active Apixaban 2.5 MG Oral Tablet (Eliquis) Take 1 Tablet by mouth in the morning and 1 Tablet before bedtime. 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, NYHA class 1 and CKD stage 3 ([facility]),Chronic diastolic congestive heart failure (HCC) TAKE 1 TABLET BY MOUTH IN THE MORNING AND AT BEDTIME 60 Tablet Active DULoxetine HCl 60 MG Oral Capsule Delayed Release Particles (Cymbalta)Indicat ions:Fibromyalgia ,Major depressive disorder, recurrent, moderate ([facility]) TAKE 1 CAPSULE BY MOUTH ONCE DAILY IN THE MORNING 30 Capsule Active Omeprazole 20 MG Oral Capsule Delayed Release (PriLOSEC)Indicat ions:Gastroesopha geal reflux disease with esophagitis without hemorrhage TAKE 1 CAPSULE BY MOUTH ONCE DAILY IN THE MORNING 30 Capsule 024 Active BD Pen Needle Short U/F [...] Carmen Waggoner PA-C. 2023 Discontinued(A dverse reaction) Ondansetron HCl 4 MG Oral Tablet (Zofran) Take 1 Tablet by mouth every 6 hours as needed for Nausea. 2023 Discontinued Triamcinolone Acetonide 0.5 % External Cream (Aristocort)Indic ations:Dermatitis Apply topically to affected area 2 times a day. Chest rash 60 g 024 2023 Discontinued(M edication List Clean Up) Dicyclomine HCl 20 MG Oral Tablet (Bentyl)Indicatio ns:Irritable bowel syndrome, unspecified type Take 1 Tablet by mouth 4 times a day as needed for Cramping. 180 Tablet 3 024 2023 Discontinued(R efill) traZODone HCl 50 MG Oral Tablet (Desyrel) Take 1 Tablet by mouth at bedtime. 30 Tablet 5 024 2023 Discontinued(R efill) Cholecalciferol 25 MCG (1000 UT) Oral Capsule Take 1 capsule by mouth daily in the morning 30 Capsule 5 024 2023 Discontinued Gabapentin 300 MG Oral Capsule (Neurontin)Indica tions:Fibromyalgi a TAKE 2 CAPSULES BY MOUTH IN THE MORNING, NOON AND BEDTIME] 168 Capsule 5 024 2023 Discontinued Magnesium Oxide 400 MG Oral TabletIndications :Benign [...] MOUTH AT BEDTIME 30 Tablet 5 024 2023 Discontinued Levothyroxine Sodium 200 MCG Oral Tablet (Levoxyl)Indicati ons:Postsurgical hypothyroidism Take 1 Tablet by mouth daily first thing in the morning. (at least 30 min prior to breakfast or other meds) 30 Tablet 5 024 2023 Discontinued Mounjaro 5 MG/0.5ML Subcutaneous Solution Pen-injector (Tirzepatide) Inject 5 mg under the skin once a week. 2 mL 11 024 2023 Discontinued(M edication/Dose Changed) Doxycycline Hyclate 100 MG Oral Capsule Take 1 Capsule by mouth in the morning and 1 Capsule before bedtime. 024 2023 Discontinued(E nd of Procedure) oxyCODONE HCl 5 MG Oral Tablet (Oxy IR)Indications:Sp inal stenosis of lumbar region without neurogenic claudication,Lumb ar radiculopathy Take 1 Tablet by mouth every 6 hours as needed for Pain, Severe. 45 Tablet 024 2023 Discontinued(R efill) traMADol HCl 50 MG Oral Tablet (Ultram)Indicatio ns:Lumbar radiculopathy,Nicolette emi osteoarthritis of left knee Take 1 Tablet by mouth every 8 hours as needed for Pain, Severe. 90 Tablet 024 2023 Discontinued(R efill) clonazePAM 0.5 MG Oral Tablet (KlonoPIN)Indicat ions:Restless legs syndrome,Anxiety state Take 1 Tablet by mouth 3 times a day. 84 Tablet 024 2023 Discontinued Furosemide 40 MG Oral Tablet (Lasix)Indication s:Chronic diastolic congestive heart failure (HCC) Take 1.5 Tablets by mouth 2 times a day. 84 Tablet 5 024 2023 Discontinued(R efill) DULoxetine HCl 30 MG Oral Capsule Delayed Release Particles (Cymbalta)Indicat ions:Fibromyalgia ,Major depressive disorder, recurrent, moderate (HCC) Take 1 Capsule by mouth in the morning. 28 Capsule 5 024 2023 Discontinued(M edication/Dose Changed) documented as of this encounter (statuses [...] stable Heparin induced thrombocytopenia (HIT) Atherosclerosis of [place] co ronary artery without angina pectoris 12/31/2021 Assessment & Plan (02/03/2023 12:28 PM EDT): No chest pain. Stable. -continue Eliquis -likely no Iwli or beta-faviola due to hypotension. Statin intolerance [...] 8:05 AM EDT): Home PT to start Zapata filter in place 08/19/2014 History of pulmonary [...] mRNA, LNP-s, No Pre serve, 2-Dose Series (BirdDog) 01/08/2021,12/18/2020 COVID-19, LNP-s, No Preserve , Navarro-sucrose, Ages 12+ (Pfizer) 2022,10/01/2021 COVID-19, MRNA-LNP, PF, 30 M CG/0.3 mL, 12 YRS AND ABOVE, IM (PFIZER-Comirnaty) 07/31/2024,07/26/2023 Pneumococcal Conjugate Vacci ne, 20-valent ([id number]) 03/12/2022 Pneumococcal Polysaccharide PPV23 (Pneumovax) 08/22/2009,06/15/2006 RSV [...] No 02/14/2024 Does the household have a [facility] source of income? 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 [facility] Partition Assembler Visit Date: 05/24/2024 Time: 10:34 AM Name: Stephanie Camp : 1955 Current Concerns: Situation: Pt seen today by [facility] organ grinder for routine follow-up visit. Background: PMH includes: DM type II, CKD stage III, Diastolic CHF, chronic hypoxic respiratory failure, HTN, recurrent DVT, IVC filter, Hyperlipidemia, Statin Intolerance, GERD, right Carotid Artery Stenosis, Lumbar Disc Disease, Restless Leg Syndrome, Sleep Apnea on CPAP, Heparin Induced Thrombocytopenia, and ambulatory dysfunction Assessment: 04/26 [facility] Urology Dr Arriaga procedure completed Uretral stenting and uroscopy went well per pt Reports she has f/u scheduled and plans to attend Uses DexYourPOV.TV G7 for BS monitoring BS 152 at time of visit 7 day average 190 Takes weights inconsistently on [facility] scale Denies SOB, AVENDAÑO, CP Pt reports fall onto R side on Saturday 05/19 while plugging in vacuum Pt denies LOC, injury States pulled herself up with use of chair Denies dizziness, lightheadedness States "Just went forward too fast and lost balance" Pt has active bed bug infestation States she is self treating, does not seem concerned with the issue Bed bug spray seen sitting in home Pt reports that she stopped seeing Psychiatry recently because she was doing well Pt mood today very elevated Pt showing this RN new shoes States she got paid early this month and has no financial concerns at this time Discussed with pt that mood seems to fluctuate heavily from one extreme to another- pt agrees Pt agreeable to [facility] referral due to extreme fluctuations in mood Problems/Symptoms: Review of Systems Constitutional: Negative. HENT: Negative. Respiratory: Negative for shortness of breath. Cardiovascular: Positive for leg swelling (Trace edema to BLE). Gastrointestinal: Negative. Genitourinary: Negative. Musculoskeletal: Positive for gait problem. Neurological: Negative for dizziness and light-headedness. Psychiatric/Behavioral: Negative. Physical Exam: Pain 0 Physical Exam Constitutional: Appearance: She is obese. Cardiovascular: Rate and Rhythm: Normal rate and regular rhythm. Pulmonary: Effort: Pulmonary effort is normal. Breath sounds: Normal breath sounds. Abdominal: General: Bowel sounds are normal. Palpations: Abdomen is soft. Musculoskeletal: General: Normal range of motion. Skin: General: Skin is warm and dry. Capillary Refill: Capillary refill takes 2 to 3 seconds. Neurological: Mental Status: She is alert. Mental status is at baseline. Psychiatric: Behavior: Behavior normal. [facility]-10 Completed this Visit: Yes. [facility]-10: Reason Completed: Status post fall [facility]-10 Interventions: Fall education provided, reviewed/provided Fall brochure Reinforcement/Education: Blood sugar testing schedule: Twice a day, once [...] Reinforced medication regimen. Timing., Dosing., and Purspose. Recommendation/Treatment/Plan: Continue medications as prescribed- no changes made as a result of today's visit Keep upcoming medical appointments; appointment dates and times reviewed with patient at time of visit Fall and safety precautions Fluids encouraged Low Na diet Elevate BLE PRN for edema Pill packs from [facility] Continue to check blood sugars 4x a day MTM for DM management Wear oxygen continously Weigh self daily via [facility] scale Compression stockings on in AM, off in PM Home Caregiver every Tuesday and Tuesday Home Interventions Provided: Specialty Referral Placed Reinforced current Plan of Care, including self-management and medication regimen Patient's 'Red Flags': Fever/chills Increased fatigue or weakness Increased SOB Patient Needs to Remember: Call [facility] at [phone] with any red flags, changes in condition, or concerns. Referrals Needed: Other [facility] Follow Up: Is there cellular connectivity/connectivity in the home? Yes Does the patient have internet in the home? No Patient encouraged to call the intake phone number for all urgent but not emergent issues. Scheduled to follow up with patient in 8 weeks. Jarrett Mathis RN 05/24/2024 10:34 AM documented in this encounter Plan of Treatment Upcoming Encounters Date Type Department Care Team (Late st Contact Info) Description 10/22/2024 1:40 PM EST Office Visit Family Practice [address] [place] [address] 293 [place] [address] Galdino Andujar, DO 293 [place] [address] 11/08/2024 1:00 PM EST PulmDiagnostic Pulmonary Function Lab, [facility] 132 [facility] [place] [address] [address], [address] 132 [facility] [place] [address] 11/08/2024 1:30 PM EST PulmDiagnostic Pulmonary Function Lab, [facility] 132 [facility] [place] [address] [address], [address] 132 [facility] [place] [address] 11/08/2024 2:30 PM EST Imaging Radiology [address] 132 [facility] [place] [phone] 12/19/2024 1:30 PM EDT Office Visit Pulmonary Medicine, [facility] 132 [facility] [place] [address] Jhonny Holley MD [address] [place] [address] 06/13/2025 1:30 PM EDT Imaging Radiology [address] [place] [phone] Scheduled Procedures Name Priority Associated Diagnoses Date/Ti me COLONOSCOPY FLEXIBLE PROXIMAL DIAGNOSTIC Recall Colon cancer screening Scheduled Referrals Name Type Priority Associated Diagnoses Orde r Schedule POPULATION HEALTH REFERRAL OP Referral Within 10 days (routine) Moderate episode of recurrent major depressive disorder (HCC) Ordered: 05/24/2024 Health Maintenance Due Date Last Done Comments Cologuard 2000 Fecal Occult Blood Test 2000 Sigmoidoscopy 2000 Albumin/Creatinine Ratio 08/05/2024 023, 11/01/2022, 01/07/2022, Additional history exists Diabetic Foot Exam 10/04/2024 10/04/2023, 0 11/01/2022, 01/07/2022, Additional history exists TSH 12/21/2024 12/22/2023, 09/26, 11/01/2022, Additional history exists HbA1c 12/25/2024 06/26/2024, 0709/2023, 12/22/2023, Additional history exists CKD PHOS USE SMARTSET 49462 12/26/2024 04/0 10/2023, 02/11/2023, 01/07/2022, Additional history exists Adult Wellness Visit 02/13/2025 02/14/2024, 08/05/20 22 GFR 03/18/2025 09/17/2024, 100 09/2023, 05/18/2024, Additional history exists Mammogram 06/12/2025 06/12/2024, 05/27, 04/21/2023, Additional history exists Diabetic Eye Exam 07/06/2025 07/06/2024, , 07/06/2024, Additional history exists Depression Monitoring 09/07/2025 09/07/2024, 024 CKD HGB USE SMARTSET 30383 10/11/202510/11, 10/11/2024, 09/17/2024, Additional history exists Colonoscopy [...] discussion- Primary Other specified counseling Atherosclerosis of [place] coronary artery of [place] heart without angina pectoris Carotid artery stenosis, asymptomatic, right Essential hypertension with goal blood pressure less than 140/[address] Other postprocedural status Hypertensive [...] discussion- Primary Other specified counseling Atherosclerosis of [place] coronary artery of [place] heart without angina pectoris Zapata filter in place Other postprocedural status Hypertensive [...] with long-term current use of insulin (HCC) Moderate episode of recurrent major depressive disorder (HCC)- Primary Screening mammogram for breast cancer documented in this encounter Advance Directives Documents on File Type Date Recorded Patient Shook Splicer Expl anation POLST 03/19/2020 4:25 PM POLST [...] (no specific identity) Health Care Power of Licensed Weigher Princess Allen Other - (no specific identity) Health Care Power of Licensed Weigher Care Teams Mechanical Handyman Relationship Specialty Start Date End Date Galdino Andujar DO [address] [facility] [place] [address] PCP - General Internal Medicine 03/08/24 documented as of this encounter
--- OUTSIDE RECORDS SUMMARY | 2024-12-09 19:29 | External Medical Summary ---
Author Name Unknown Address Unknown Organization K0G:[facility] [address] [place] [id number] Laboratory Report Ordering Provider Test Date Status JAG SHULTZ 10/11/2024 07:05:41 Final Observation Date Value Abnormality Reference (Units ) Status WBC, Total 10/11/2024 07:05:41 11.04 Above high normal 4 .00-10.80 (K/uL) Final RBC 10/11/2024 07:05:41 4.15 3.85-5.15 (M/uL) Final Hemoglobin 10/11/2024 07:05:41 11.9 Below low normal 12 .0-15.3 (g/dL) Final HCT 10/11/2024 07:05:41 40.2 36.0-45.2 (%) Final MCV 10/11/2024 07:05:41 96.9 81.5-97.5 (fL) Final MCH 10/11/2024 07:05:41 28.7 27.0-34.0 (pg) Final MCHC 10/11/2024 07:05:41 29.6 32.0-36.0 (g/dL) Final RDW 10/11/2024 07:05:41 14.3 11.5-15.5 (%) Final Platelets 10/11/2024 07:05:41 311 140-400 (K /uL) Final MPV 10/11/2024 07:05:41 10.2 6.6-11.1 ( fL) Final Performing Location [facility] [place] [address] [place] [address]
--- OUTSIDE RECORDS SUMMARY | 2024-12-09 19:29 | External Medical Summary | Summary of Care ---
Author Name Unknown Organization [facility] Address [address] [place] [address] Phone [phone] Care Team Providers Care Net Developer Architect Name Role Phone Lexii Andujar DO Primary Care Provider [phone] Reason for Visit * Reason Comments eRx-Medication Refill Encounter Details Date Type Department Care Team (Late st Contact Info) Description 09/24/2024 Refill Family Practice [address] [place] [address] [place] [address] Lexii Andujra DO [address] [place] [address] Allergies Active Allergy Reactions Criticality Noted Date [...] as of this encounter (statuses as of 09/25/2024) Medications ONETOUCH DELICA LANCETS 33G MISC Check blood sugars 3-4 times daily 180 Each 5 11/06/2 018 Active oxygen GASIndications:OS A (obstructive sleep [...] units BG > 150. 150 mL 3 Active Dexcom G7 Sensor Use as directed. (From [facility]) Active Plavix 75 MG Oral Tablet Take 1 Tablet by mouth in the morning. Active Aspirin 81 MG Oral Tablet Delayed [...] THE MORNING AND AT BEDTIME 60 Tablet 024 Active DULoxetine HCl 60 MG Oral Capsule Delayed Release Particles (Cymbalta)Indicat ions:Fibromyalgia ,Major depressive disorder, recurrent, moderate (HCC) TAKE 1 CAPSULE BY MOUTH ONCE DAILY IN THE MORNING 30 Capsule 5 Active Omeprazole 20 MG Oral Capsule Delayed Release (PriLOSEC)Indicat ions:Gastroesopha geal reflux disease with esophagitis without hemorrhage TAKE 1 CAPSULE BY MOUTH ONCE DAILY IN THE MORNING 30 Capsule 5 024 Active traZODone HCl 50 MG Oral Tablet (Desyrel) Take 1 Tablet by mouth at bedtime. 30 Tablet 5 024 Active Cholecalciferol 25 MCG (1000 UT) [...] the skin once a week. 2 mL 024 Active Ondansetron HCl 4 MG Oral [...] Units Subcutaneous DAILY(1900), Per MTDM, Reported on 09/17/2024 rOPINIRole HCl 2 MG Oral Tablet (Requip)Indicatio [...] bedtime. Morning and noon. 30 Tablet 2 024 Active traMADol HCl 50 MG Oral Tablet (Ultram)Indicatio ns:Primary osteoarthritis of both knees,Lumbar radiculopathy Take 1 Tablet by mouth every 8 hours as needed for Pain, Severe. 90 Tablet 024 Active Rosuvastatin Calcium 5 MG Oral Tablet (Crestor)Indicati ons:Dyslipidemia Take 1 Tablet by mouth in the morning. 30 Tablet 5 024 Active clonazePAM 0.5 MG Oral Tablet (KlonoPIN)Indicat ions:Restless legs syndrome,Anxiety state TAKE 1 TABLET BY MOUTH THREE TIMES A DAY 84 Tablet 024 Active Comfort EZ Pen [place] 31G X 8 MM (Insulin Pen Needle) use five times daily 500 Each 3 024 Active BD Pen Needle Short U/F 31G X 8 MM (Insulin Pen Needle) use five times daily 500 Each 3 023 2023 Discontinued documented as of this encounter (statuses as of 09/25/2024) Active Problems Problem Noted Date Diagnosed Date [...] 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 Atherosclerosis of [place] co ronary artery without angina pectoris 12/31/2021 [...] as of this encounter (statuses as of 09/25/2024) Resolved Problems Problem Noted Date Diagnosed Date [...] as of this encounter (statuses as of 09/25/2024) Immunizations Name Administration Dates Next Due COVID-19 mRNA, LNP-s, No Pre serve, 2-Dose Series (Black coin) 01/08/2021,12/18/2020 COVID-19, LNP-s, No Preserve , Navarro-sucrose, Ages 12+ (Pfizer) 2022,10/01/2021 COVID-19, MRNA-LNP, PF, 30 M CG/0.3 mL, 12 YRS AND ABOVE, IM (PFIZER-Comirnaty) 07/31/2024,07/26/2023 Pneumococcal Conjugate Vacci ne, 20-valent ([id number]) 03/12/2022 Pneumococcal Polysaccharide PPV23 (Pneumovax) 08/22/2009,06/15/2006 RSV [...] 02/14/2024 Does the household have a re lar source of income? (Household - for ages [...] encounter Miscellaneous Notes * Telephone Encounter - Josef Livingston RPh - 09/25/2024 11:46 AM EST Signed Prescriptions: Disp Refills Comfort EZ Pen [place] 31G X 8 MM (Insulin*500 Ea*3 Sig: use five times dailyAuthorizing Provider: LEXII ANDUJAR User: JOSEF LIVINGSTON documented in this encounter Plan of Treatment Upcoming Encounters Date Type Department Care Team (Late st Contact Info) Description 10/11/2024 7:40 AM EST Office Visit Pulmonary Medicine, [facility] [address] [facility] [place] [address] Jhonny Holley MD [address] [place] [address] 10/22/2024 1:40 PM EST Office Visit Family Practice [address], [place] [address] [facility] [place] [address] Lexii Andujar, [address] [place] [address] 06/13/2025 1:30 PM EDT Imaging Radiology [facility] 1st [facility] 132 [facility] [place] [address] Scheduled Procedures Name Priority Associated Diagnoses Date/Ti me COLONOSCOPY FLEXIBLE PROXIMAL DIAGNOSTIC Recall Colon cancer screening Health Maintenance Due Date Last Done Comments Cologuard 2000 Fecal Occult Blood Test 2000 Sigmoidoscopy 2000 Albumin/Creatinine Ratio 08/05/20242 023, 11/01/2022, 01/07/2022, Additional history exists Diabetic Foot Exam 10/04/2024 10/04/2023, 0 11/01/2022, 01/07/2022, Additional history exists TSH 12/21/2024 12/22/2023, 09/26, 11/01/2022, Additional history exists HbA1c 12/25/2024 06/26/2024, 0709/2023, 12/22/2023, Additional history exists CKD PHOS USE SMARTSET 63071 12/26/2024 04/0 10/2023, 02/11/2023, 01/07/2022, Additional history exists Adult Wellness Visit 02/13/2025 02/14/2024, 08/05/20 22 GFR 03/18/2025 09/17/2024, 10/0 09/2023, 05/18/2024, Additional history exists Mammogram 06/12/2025 06/12/2024, 05/27, 04/21/2023, Additional history exists Diabetic Eye Exam 07/06/2025 07/06/2024, , 07/06/2024, Additional history exists Depression Monitoring 09/07/2025 09/07/2024, 024 CKD HGB USE SMARTSET 25410 09/17/202509/17, 09/17/2024, 06/26/2024, Additional history exists Colonoscopy 02/17/2026 02/18/2016, 01/25, [...] Documents on File Type Date Recorded Patient Collar Trimmer Expl anation POLST 03/19/2020 4:25 PM POLST [...] specific identity) Health Care Power of Senior Office Support Assistant Sosa Princess Allen Other - (no specific identity) Health Care Power of Senior Office Support Assistant Sosa Care Teams Net Developer Architect Relationship Specialty Start Date End Date Lexii Andujar DO [address] [place] [address] PCP - General Internal Medicine 03/08/24 documented as of this encounter
--- OUTSIDE RECORDS SUMMARY | 2024-12-09 19:29 | External Medical Summary | Summary of Care ---
Author Name Unknown Organization [facility] Address [address] [place] [address] Phone [phone] Care Team Providers Care X Ray Nurse Name Role Phone PratimaGaldino DO Primary Care Provider [phone] Reason for Visit * Reason Comments Outpatient Testing Encounter Details Date Type Department Care Team (Late st Contact Info) Description 10/11/2024 7:10 AM EST Laboratory Laboratory, [facility] [address] [place] [address] [facility] [address] [place] [address] Anemia; Leukocytosis, unspecified type; Dyslipidemia, goal LDL below 70 Allergies Active Allergy Reactions Criticality Noted Date [...] 7.0%-8.0% ([facility]) Inject 8 units with breakfast and 6 units lunch and 10 units with dinner + sliding scale 1 units for every 30 units BG > 150. 150 mL 3 05/16/20 Active Dexcom G7 Sensor Use as directed. (From [facility]) 06/01/20 Active Plavix 75 MG [...] Tablet 09/20/20 24 Active Comfort EZ Pen [place] 31G X 8 MM (Insulin Pen Needle) use five times daily 500 Each 3 09/25/20 24 Active documented as of this encounter (statuses [...] has rx for atorvastatin and plavix to fiber picker at pharmacy. Type 2 diabetes mellitus [...] stable Heparin induced thrombocytopenia (HIT) Atherosclerosis of [place] co ronary artery without angina pectoris 12/31/2021 [...] "I look ") Medication Regimen: o Beta Favioal Therapy: No beta-faviola secondary to --unknown o [...] rx evidently given by vascular, has to fiber picker rx documented as of this encounter [...] (PFIZER-Comirnaty) 07/31/2024,07/26/2023 Pneumococcal Conjugate Vacci ne, 20-valent ([id number]) 03/12/2022 Pneumococcal Polysaccharide PPV23 (Pneumovax) 08/22/2009,06/15/2006 RSV [...] 02/14/2024 Does the household have a unm cancer centerlar source of income? (Household - for [...] 7:40 AM EST Office Visit Pulmonary Medicine, [facility] [address] [place] [address] Jhonny Holley MD [address] [facility] [place] [address] Arrived 10/22/2024 1:40 PM EST Office Visit Family Practice [address], [place] [address] [facility] [place] [address] Galdino Andujar DO 293 [place] [address] 06/13/2025 1:30 PM EDT Imaging Radiology [facility] 1st Floor, [place] [address] [place] [address] Pending Results Name Type Priority Associated Diagnoses Date /Time IRON SCREEN, INCLUDING TIBC Lab Routine Anemia 10/11/2024 7:05 AM EST FERRITIN Lab Routine Anemia 10/11/2024 7:05 AM EST CBC WITH WBC DIFFERENTIAL Lab Routine Leukocytosis, unspecified type 10/11/2024 7:05 AM EST LIPID PANEL WITH DIRECT LDL IF TG IS HIGH Lab Routine Dyslipidemia, goal LDL below 70 10/11/2024 7:05 AM EST CBC Lab Routine Leukocytosis, unspecified type 10/11/2024 7:05 AM EST DIFFERENTIAL, AUTOMATED Lab Routine Leukocytosis, unspecified type 10/11/2024 7:05 AM EST Scheduled Procedures Name Priority Associated Diagnoses [...] Additional history exists CKD PHOS USE SMARTSET 22423 12/26/2024 04/0 10/2023, 02/11/2023, 01/07/2022, Additional history exists Adult Wellness Visit 02/13/2025 02/14/2024, 08/05/20 22 GFR 03/18/2025 09/17/2024, 1009/2023, 05/18/2024, Additional history exists Mammogram 06/12/2025 06/12/2024, 05/27, 04/21/2023, Additional history exists Diabetic Eye Exam 07/06/2025 07/06/2024, , 07/06/2024, Additional history exists Depression Monitoring 09/07/2025 09/07/2024, 024 CKD HGB USE SMARTSET 61297 09/17/202509/17, 09/17/2024, 06/26/2024, Additional history exists Colonoscopy [...] discussion- Primary Other specified counseling Atherosclerosis of [place] coronary artery of [place] heart without angina pectoris Carotid artery stenosis, [...] discussion- Primary Other specified counseling Atherosclerosis of [place] coronary artery of [place] heart without angina pectoris Frank filter in [...] with long-term current use of insulin (HCC) Anemia Anemia, unspecified Leukocytosis, unspecified type Dyslipidemia, goal LDL below 70 Other and unspecified hyperlipidemia Screening mammogram for breast cancer documented in this encounter Advance Directives Documents on File Type Date Recorded Patient Laborer Stores Expl anation POLST 03/19/2020 4:25 PM POLST [...] (no specific identity) Health Care Power of Journeyman Powerhouse Operator Princess Allen Other - (no specific identity) Health Care Power of Journeyman Powerhouse Operator Care Teams X Ray Nurse Relationship Specialty Start Date End Date Galdino Andujar DO [address] [place] [address] PCP - General Internal Medicine 03/08/24 documented as of this encounter
--- OUTSIDE RECORDS SUMMARY | 2024-12-09 19:29 | External Medical Summary | Summary of Care ---
Author Name Unknown Organization [facility] Address [address] [place] [address] Phone [phone] Care Team Providers Care Deputy Chief Magistrate Name Role Phone ZiaandrewsGaldino DO Primary Care Provider [phone] Encounter Details Date Type Department Care Team (Late st Contact Info) Description 09/27/2024 Population Health External Data Unspecified Department Allergies [...] as of this encounter (statuses as of 10/02/2024) Medications ONETOUCH DELICA LANCETS 33G MISC Check [...] G7 Sensor Use as directed. (From [facility]) 06/01/20 Active Plavix 75 MG Oral [...] Units Subcutaneous DAILY(1900), Per MTD, Reported on 09/17/2024 rOPINIRole HCl 2 MG Oral Tablet (Requip)Indication [...] Tablet 09/20/20 24 Active Comfort EZ Pen [place] 31G X 8 MM (Insulin Pen Needle) use five times daily 500 Each 3 09/25/20 24 Active documented as of this encounter (statuses as of 10/02/2024) Active Problems Problem Noted Date Diagnosed Date [...] by vascular, reports upcoming carotid surgery at [facility]. She states she has rx for atorvastatin and plavix to cloth picker at pharmacy. 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 Atherosclerosis of [place] co ronary artery without angina pectoris 12/31/2021 [...] rx evidently given by vascular, has to cloth picker rx documented as of this encounter (statuses as of 10/02/2024) Resolved Problems Problem Noted Date Diagnosed Date [...] as of this encounter (statuses as of 10/02/2024) Immunizations Name Administration Dates Next Due COVID-19 mRNA, LNP-s, No Pre serve, 2-Dose Series ([employer]) 01/08/2021,12/18/2020 COVID-19, LNP-s, No Preserve , Navarro-sucrose, Ages 12+ (Pfizer) 2022,10/01/2021 COVID-19, MRNA-LNP, PF, 30 M CG/0.3 mL, 12 YRS AND ABOVE, IM (PFIZER-Comirnaty) 07/31/2024,07/26/2023 Pneumococcal Conjugate Vacci ne, 20-valent ([id number]) 03/12/2022 Pneumococcal Polysaccharide PPV23 (Pneumovax) 08/22/2009,06/15/2006 RSV [...] 7:40 AM EST Office Visit Pulmonary Medicine, [facility] 132 [facility] [place] [address] Jhonny Holley MD [address] [facility] [address] 10/22/2024 1:40 PM EST Office Visit Family Practice [address], [place] [address] [place] [address] Galdino Andujar, [address] [place] [address] 06/13/2025 1:30 PM EDT Imaging Radiology [facility] 1st [facility] 132 [facility] [place] [address] Scheduled Procedures Name Priority Associated Diagnoses Date/Ti [...] Additional history exists CKD PHOS USE SMARTSET 38225 12/26/2024 04/0 10/2023, 02/11/2023, 01/07/2022, Additional history exists Adult Wellness Visit 02/13/2025 02/14/2024, 08/05/20 22 GFR 03/18/2025 09/17/2024, 1009/2023, 05/18/2024, Additional history exists Mammogram 06/12/2025 06/12/2024, 05/27, 04/21/2023, Additional history exists Diabetic Eye Exam 07/06/2025 07/06/2024, , 07/06/2024, Additional history exists Depression Monitoring 09/07/2025 09/07/2024, 024 CKD HGB USE SMARTSET 97576 09/17/202509/17, 09/17/2024, 06/26/2024, Additional history exists Colonoscopy [...] Documents on File Type Date Recorded Patient Overlock Elastic Attacher Expl anation POLST 03/19/2020 4:25 PM POLST [...] specific identity) Health Care Power of Auto Headlight Mechanic Princesseugene Thrashery Other - (no specific identity) Health Care Power of Auto Headlight Mechanic Care Teams Deputy Chief Magistrate Relationship Specialty Start Date End Date Galdino Andujar DO [address] [place] [address] PCP - General Internal Medicine 03/08/24 documented as of this encounter
--- OUTSIDE RECORDS SUMMARY | 2024-12-09 19:29 | External Medical Summary ---
Author Name Unknown Address Unknown Organization K01:LABORATORY [facility] - [address] [place] [address] Laboratory Report Ordering Provider Test Date Status JAG SHULTZ 10/11/2024 07:05:41 Final Observation Date Value Abnormality Reference (Units ) Status Ferritin 10/11/2024 07:05:41 36 13-150 (ng /mL) Final Postmenopausal women have hi gher ferritin levels than pre-menopausal women. The above reference interval is based on pre-menopausal women. Performing Location LAB[facility]ATORY [facility] - [address] [place] [address]
--- OUTSIDE RECORDS SUMMARY | 2024-12-09 19:29 | External Medical Summary | Summary of Care ---
Author Name Unknown Organization [facility] Address [address] [place] [address] Phone [phone] Care Team Providers Care Accountancy Professor Name Role Phone ZiaandrewsGaldino DO Primary Care Provider [phone] Encounter Details Date Type Department Care Team (Late st Contact Info) Description 10/09/2024 Population Health External Data Unspecified Department Allergies [...] as of this encounter (statuses as of 10/10/2024) Medications ONETOUCH DELICA LANCETS 33G MISC Check [...] 7.0%-8.0% ([facility]) Inject 8 units with breakfast and 6 units lunch and 10 units with dinner + sliding scale 1 units for every 30 units BG > 150. 150 mL 3 05/16/20 Active Dexcom G7 Sensor Use as directed. (From [facility]) 06/01/20 Active Plavix 75 MG Oral [...] of insulin ([facility]) Use up to 4 times a [...] (Cymbalta)Indicati ons:Fibromyalgia,M ajor depressive disorder, recurrent, moderate ([facility]) TAKE 1 CAPSULE BY MOUTH ONCE [...] Tablet 09/20/20 24 Active Comfort EZ Pen [place] 31G X 8 MM (Insulin Pen Needle) use five times daily 500 Each 3 09/25/20 24 Active documented as of this encounter (statuses as of 10/10/2024) Active Problems Problem Noted Date Diagnosed Date [...] by vascular, reports upcoming carotid surgery at [facility]. She states she has rx for atorvastatin [...] 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 Atherosclerosis of [place] co ronary artery without angina pectoris 12/31/2021 [...] as of this encounter (statuses as of 10/10/2024) Resolved Problems Problem Noted Date Diagnosed Date [...] thrombocytopenia 06/12/2018 08/26/2018 ESLIE (acute kidney injury) 06/12/2018 Morbid obesity with [...] as of this encounter (statuses as of 10/10/2024) Immunizations Name Administration Dates Next Due COVID-19 mRNA, LNP-s, No Pre serve, 2-Dose Series ([employer]) 01/08/2021,12/18/2020 COVID-19, LNP-s, No Preserve , Navarro-sucrose, Ages 12+ (Pfizer) 2022,10/01/2021 COVID-19, MRNA-LNP, PF, 30 M CG/0.3 mL, 12 YRS AND ABOVE, IM (PFIZER-Comirnaty) 07/31/2024,07/26/2023 Pneumococcal Conjugate Vacci ne, 20-valent ([id number]) 03/12/2022 Pneumococcal Polysaccharide PPV23 (Pneumovax) 08/22/2009,06/15/2006 RSV [...] 7:40 AM EST Office Visit Pulmonary Medicine, [facility] [address] [facility] [place] [address] Jhonny Holley MD [address] [facility] [address] 10/22/2024 1:40 PM EST Office Visit Family Practice [address], [place] [address] [place] [address] Galdino Andujar, [address] [facility] [place] [address] 06/13/2025 1:30 PM EDT Imaging Radiology [facility] 1st [facility] [address] [facility] [place] [phone] Scheduled Procedures Name Priority Associated Diagnoses Date/Ti [...] Additional history exists CKD PHOS USE SMARTSET 23644 12/26/2024 04/0 10/2023, 02/11/2023, 01/07/2022, Additional history exists Adult Wellness Visit 02/13/2025 02/14/2024, 08/05/20 22 GFR 03/18/2025 09/17/2024, 1009/2023, 05/18/2024, Additional history exists Mammogram 06/12/2025 06/12/2024, 05/27, 04/21/2023, Additional history exists Diabetic Eye Exam 07/06/2025 07/06/2024, , 07/06/2024, Additional history exists Depression Monitoring 09/07/2025 09/07/2024, 024 CKD HGB USE SMARTSET 60674 09/17/202509/17, 09/17/2024, 06/26/2024, Additional history exists Colonoscopy [...] Documents on File Type Date Recorded Patient Casino Games Dealer Expl anation POLST 03/19/2020 4:25 PM POLST [...] (no specific identity) Health Care Power of Radio Sales Account Executive Princess Other - (no specific identity) Health Care Power of Radio Sales Account Executive Care Teams Accountancy Professor Relationship Specialty Start Date End Date Galdino Andujar DO [address] [place] [address] PCP - General Internal Medicine 03/08/24 documented as of this encounter
--- OUTSIDE RECORDS SUMMARY | 2024-12-09 19:29 | External Medical Summary ---
Author Name Unknown Address Unknown Organization K0G:LABORATORY [place] [facility] - [address] [place] [address] Laboratory Report Ordering Provider Test Date Status JAG SHULTZ 10/11/2024 07:05:41 Final Observation Date Value Abnormality Reference (Units ) Status SYNC LEUKOCYTES IN BLOOD BY AUTOMATED COUNT 10/11/2024 07:05:41 11.04 Above high normal 4.00-10.80 (K/uL) Final Segs 10/11/2024 07:05:41 60.0 40.0-75.0 (%) Final Lymphs % 10/11/2024 07:05:41 28.0 18.0-42.0 (%) Final Monos 10/11/2024 07:05:41 7.2 1.0-11.0 (%) Final Eosinophils 10/11/2024 07:05:41 4.3 0.0-6.0 (%) Final Basos 10/11/2024 07:05:41 0.5 0.0-2.0 (%) Final Absolute Segs 10/11/2024 07:05:41 6.61 1.80-7.70 (K/uL) Final Lymphs, absolute 10/11/2024 07:05:41 3.09 1.00-4.80 (K/ul) Final Monos, Abs 10/11/2024 07:05:41 0.80 0.00-1.10 (K/uL) Final Eos, Abs 10/11/2024 07:05:41 0.48 0.00-0.70 (K/uL) Final Basos, Abs 10/11/2024 07:05:41 0.06 0.00-0.20 (K/uL) Final Performing Location LABORATORY [place] [facility] - [address] [place] [address]
--- OUTSIDE RECORDS SUMMARY | 2024-12-09 19:29 | External Medical Summary | Summary of Care ---
Author Name Unknown Organization [facility] Address [address] [place] [address] Phone [phone] Care Team Providers Care Calculator Operator Name Role Phone Galdino Andujar DO Primary Care Provider [phone] Reason for Visit * Reason Onset Date Comments [facility]: Maintenance 10/01/2024 Encounter Details Date Type Department Care Team (Late st Contact Info) Description 10/01/2024 Telephone [facility], [facility] [address] [place] [address] Jarrett Mathis, LEXI [address] [place] [address] [facility]: Maintenance Allergies Active Allergy [...] as of this encounter (statuses as of 10/01/2024) Medications ONETOUCH DELICA LANCETS 33G MISC Check [...] Use as directed. (From [facility]) 06/01/20 Active Plavix 75 MG [...] Tablet 09/20/20 24 Active Comfort EZ Pen [place] 31G X 8 MM (Insulin Pen Needle) use five times daily 500 Each 3 09/25/20 24 Active documented as of this encounter (statuses as of 10/01/2024) Active Problems Problem Noted Date Diagnosed Date [...] upcoming carotid surgery at [facility]. She states she has [...] stable Heparin induced thrombocytopenia (HIT) Atherosclerosis of [place] ronary artery [...] 8:05 AM EDT): Home PT to start [place] filter in place 08/19/2014 History of pulmonary [...] as of this encounter (statuses as of 10/01/2024) Resolved Problems Problem Noted Date Diagnosed Date [...] as of this encounter (statuses as of 10/01/2024) Immunizations Name Administration Dates Next Due COVID-19 mRNA, LNP-s, No Pre serve, 2-Dose Series (Pfizer) 01/08/2021,12/18/2020 COVID-19, LNP-s, No Preserve , Navarro-sucrose, Ages 12+ (Pfizer) 2022,10/01/2021 COVID-19, MRNA-LNP, PF, 30 M CG/0.3 mL, 12 YRS AND ABOVE, IM (PFIZER-Comirnaty) 07/31/2024,07/26/2023 Pneumococcal Conjugate Vacci ne, 20-valent ([id number]) 03/12/2022 Pneumococcal Polysaccharide PPV23 (Pneumovax) 08/22/2009,06/15/2006 RSV [...] No 02/14/2024 Does the household have a [facility] source of income? (Household - [...] Telephone Encounter - Jarrett Mathis RN - 10/01/2024 2:05 PM EST As of 05/24/24 visit pt had active bed bugs- asked pt to make [facility] aware when situation was resolved. No calls from pt. Placed call to pt, went to , left MOM asking to return call back to this RN. documented in this encounter Plan of Treatment Upcoming Encounters Date Type Department Care Team (Late st Contact Info) Description 10/11/2024 7:40 AM EST Office Visit Pulmonary Medicine, [facility] 132 [facility] [place] [address] Jhonny Holley MD [address] [facility] [address] 10/22/2024 1:40 PM EST Office Visit Family Practice [address], [place] 293 [facility], [place] [phone] Galdino Andujar DO 293 [facility], [place] [address] 06/13/2025 1:30 PM EDT Imaging Radiology [facility] 1st Floor, [place] 132 [facility] [place] [address] Scheduled Procedures Name Priority Associated Diagnoses Date/Ti [...] Additional history exists CKD PHOS USE SMARTSET 63733 12/26/2024 04/0 10/2023, 02/11/2023, 01/07/2022, Additional history exists Adult Wellness Visit 02/13/2025 02/14/2024, 08/05/20 22 GFR 03/18/2025 09/17/2024, 1009/2023, 05/18/2024, Additional history exists Mammogram 06/12/2025 06/12/2024, 05/27, 04/21/2023, Additional history exists Diabetic Eye Exam 07/06/2025 07/06/2024, , 07/06/2024, Additional history exists Depression Monitoring 09/07/2025 09/07/2024, 024 CKD HGB USE SMARTSET 87810 09/17/202509/17, 09/17/2024, 06/26/2024, Additional history exists Colonoscopy [...] on File Type Date Recorded Patient Truck Leasing Manager Expl anation POLST 03/19/2020 4:25 PM [...] (no specific identity) Health Care Power of Milled Rubber Tender Princess Allen Other - (no specific identity) Health Care Power of Milled Rubber Tender Care Teams Calculator Operator Relationship Specialty Start Date End Date Galdino Andujar DO [address] [place] [address] PCP - General Internal Medicine 03/08/24 documented as of this encounter
--- OUTSIDE RECORDS SUMMARY | 2024-12-09 19:29 | External Medical Summary | Summary of Care ---
Author Name Unknown Organization [facility] Address [address] [place] [address] Phone [phone] Care Team Providers Care Linotype Machinist Name Role Phone Lexii Andujar DO Primary Care Provider [phone] Reason for Visit * Reason Comments eRx-Medication Refill Encounter Details Date Type Department Care Team (Late st Contact Info) Description 09/17/2024 Refill Family Practice [address], [place] [address] [place] [phone] Lexii Andujar DO [address] [place] [address] Restless legs syndrome; Anxiety state Allergies Active [...] as of this encounter (statuses as of 09/20/2024) Medications ONETOUCH DELICA LANCETS 33G MISC Check [...] Dexcom G7 Sensor Use as directed. (From [facility]) Active BD Pen Needle Short U/F 31G X 8 MM (Insulin Pen Needle) use five times daily 500 Each 3 023 Active Plavix 75 MG Oral Tablet [...] AT BEDTIME 60 Tablet 5 024 Active DULoxetine HCl 60 MG Oral Capsule Delayed Release Particles (Cymbalta)Indicat ions:Fibromyalgia ,Major depressive disorder, recurrent, moderate ([facility]) TAKE 1 CAPSULE BY MOUTH ONCE DAILY IN THE MORNING 30 Capsule 5 024 Active Omeprazole 20 MG Oral Capsule Delayed [...] use of insulin ([facility]) Inject 7.5 mg under the skin once [...] TIMES A DAY 84 Tablet 024 Active clonazePAM 0.5 MG Oral Tablet (KlonoPIN)Indicat ions:Restless legs syndrome,Anxiety state Take 1 Tablet by mouth in the morning and 1 Tablet at noon and 1 Tablet before bedtime. 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 Type 2 diabetes mellitus [...] stable Heparin induced thrombocytopenia (HIT) Atherosclerosis of [place] ronary artery [...] given by vascular, has to pick up truck driver rx documented as of this encounter (statuses as of 09/20/2024) Resolved Problems Problem Noted Date Diagnosed Date [...] as of this encounter (statuses as of 09/20/2024) Immunizations Name Administration Dates Next Due COVID-19 mRNA, LNP-s, No Pre serve, 2-Dose Series ([employer]) 01/08/2021,12/18/2020 COVID-19, LNP-s, No Preserve , Navarro-sucrose, Ages 12+ (Pfizer) 2022,10/01/2021 COVID-19, MRNA-LNP, PF, 30 M CG/0.3 mL, 12 YRS AND ABOVE, IM (PFIZER-Comirnaty) 07/31/2024,07/26/2023 Pneumococcal Conjugate Vacci ne, 20-valent ([id number]) 03/12/2022 Pneumococcal Polysaccharide PPV23 (Pneumovax) 08/22/2009,06/15/2006 RSV [...] No 02/14/2024 Does the household have a [facility] source of income? (Household - for [...] Telephone Encounter - Lexii Andujar DO - 09/20/2024 1:24 PM ESTSigned Prescriptions: Disp Refills clonazePAM 0.5 MG Oral Tablet (KlonoPIN) 84 Tab*0 Sig: TAKE 1 TABLET BY MOUTH THREE TIMES A DAYAuthorizing Provider: LEXII ANDUJAR * Telephone Encounter - Lexii Andujar DO - 09/20/2024 1:23 PM EST I have reviewed the patients controlled substance dispensing history in the Prescription Drug Monitoring Program in compliance with the [facility] regulations before prescribing a controlled substance. [...] be found in Results Review. Medication due 08/31/2024 * Telephone Encounter - Ricardo Mehta, [facility] - 09/20/2024 10:42 AM EST Pending Prescriptions: Disp Refills clonazePAM 0.5 MG Oral Tablet [Pharmacy Me*84 Tab*0 Sig: TAKE 1 TABLET BY MOUTH THREE TIMES A DAY * Telephone Encounter - Ricardo Mehta [facility] - 09/20/2024 10:39 AM EST I have reviewed the patients controlled substance dispensing history in the Prescription Drug Monitoring Program in compliance with the [facility] regulations before prescribing a controlled substance. PDMP checked on 09/20/2024. Pending Prescriptions: Disp Refills clonazePAM 0.5 MG Oral Tablet (KlonoPIN) *84 Tab*0 Sig: TAKE 1 TABLET BY MOUTH THREE TIMES A DAY Last Visit: 09/17/2024 (in office), 04/23/2024 (telemedicine) Next Visit: 10/22/2024 Date medication was last filled: 08/24/2024 Date medication is due for refill: 09/20/2024 Pharmacy: [facility] [address] Is this request for a controlled [...] Review. Please approve if appropriate. Thank you, Ricardo Mehta, PharmD Clinical Pharmacist [facility] ([facility]) [phone] 09/20/2024, 10:39 AM documented in this encounter Plan of Treatment Upcoming Encounters Date Type Department Care Team (Late st Contact Info) Description 10/11/2024 7:40 AM EST Office Visit Pulmonary Medicine, [facility] 132 [facility] [place] [address] Jhonny Holley MD [address] [facility] [address] 10/22/2024 1:40 PM EST Office Visit Family Practice [address] [facility] 293 [facility] [place] [phone] Lexii Andujar DO 293 [facility] [place] [address] 02/19/2025 1:00 PM EDT Nurse Only Family Practice [address] [facility] 293 [facility] [place] [phone] Shira De La Rosa, LEXI 293 [facility] [place] [phone] 06/13/2025 1:30 PM EDT Imaging Radiology [address] 132 [facility] [place] [address] Scheduled Procedures Name Priority Associated Diagnoses Date/Ti [...] Additional history exists CKD PHOS USE SMARTSET 87004 12/26/2024 04/0 10/2023, 02/11/2023, 01/07/2022, Additional history exists Adult Wellness Visit 02/13/2025 02/14/2024, 08/05/20 22 GFR 03/18/2025 09/17/2024, 1009/2023, 05/18/2024, Additional history exists Mammogram 06/12/2025 06/12/2024, 05/27, 04/21/2023, Additional history exists Diabetic Eye Exam 07/06/2025 07/06/2024, , 07/06/2024, Additional history exists Depression Monitoring 09/07/2025 09/07/2024, 024 CKD HGB USE SMARTSET 58375 09/17/202509/17, 09/17/2024, 06/26/2024, Additional history exists Colonoscopy [...] counseling ILD (interstitial lung disease) ([facility])- Primary Postinflammatory pulmonary fibrosis Fibromyalgia Mylagia and myositis, unspecified Moderate episode of recurrent major depressive disorder (HCC) Primary osteoarthritis of both knees Primary localized osteoarthrosis, lower leg Chronic hypoxemic respiratory failure (HCC) Chronic respiratory failure 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 3b chronic kidney disease (HCC) Advanced care planning/counseling discussion- Primary Other specified counseling Atherosclerosis of [place] coronary artery of [place] heart without angina pectoris Carotid artery stenosis, [...] discussion- Primary Other specified counseling Atherosclerosis of [place] coronary artery of [place] heart without angina pectoris [place] filter in place Other postprocedural status Hypertensive [...] syndrome (RLS) Anxiety state Anxiety state, unspecified Screening mammogram for breast cancer documented in this encounter Advance Directives Documents on File Type Date Recorded 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
--- OUTSIDE RECORDS SUMMARY | 2024-12-09 19:29 | External Medical Summary ---
Author Name Unknown Address Unknown Organization K01:[facility] - [address] [facility] [place] [address] Laboratory Report Ordering Provider Test Date Status JAG SHULTZ 10/11/2024 07:05:41 Final Observation Date Value Abnormality Reference (Units ) Status Iron 10/11/2024 07:05:41 79 33-151 (ug /dL) Final Iron-binding capacity 10/11/2024 07:05:41 338 250-425 (ug/dL) Final Transferrin Sat % 10/11/2024 07:05:41 23 15 -55 (%) Final Performing Location [facility] - [address] [place] [address]
--- OUTSIDE RECORDS SUMMARY | 2024-12-09 19:29 | External Medical Summary ---
Author Name Unknown Address Unknown Organization K01:[facility] [place] - [address] [place] [address] Laboratory Report Ordering Provider Test Date Status ARI CALDERON 10/11/2024 07:05:41 Final Observation Date Value Abnormality Reference (Units ) Status LDL, (direct) 10/11/2024 07:05:41 66 <=129 (mg/dL) Final LDL Cholesterol Reference Ra nges (mg/dL):
<70 Target level for high risk ASCVD patient
<100 Optimal for general population
100-129 Near optimal for general population
130-159 Borderline high
160-189 High
>=190 Very high Performing Location [facility] - [address] [place] [address]
--- OUTSIDE RECORDS SUMMARY | 2024-12-09 19:29 | External Medical Summary ---
Author Name Unknown Address Unknown Organization K01:[facility] - [address] [facility] [address] [place] [address] Laboratory Report Ordering Provider Test Date Status ARI CALDERON 10/11/2024 07:05:41 Final Observation Date Value Abnormality Reference (Units ) Status Triglyceride 10/11/2024 07:05:41 167 <=174 ( mg/dL) Final Triglyceride Reference Range s (mg/dL):
<150 Acceptable
150-174 Borderline high
175-499 High
>=500 Very high Cholesterol 10/11/2024 07:05:41 122 <200 (mg /dL) Final Total Cholesterol Reference Ranges (mg/dL):
<200 Desirable
200-239 Borderline high
>=240 High HDL 10/11/2024 07:05:41 38 Below low normal >49 (mg/dL) Final HDL Cholesterol Reference Ra nges (mg/dL):
>=60 High (Desirable)
<50 Low (Undesirable) For Females
<40 Low (Undesirable) For Males NON-HDL CHOLESTEROL 10/11/2024 07:05:41 84 <=159 (mg/dL) Final Non-HDL Cholesterol Referenc e Range (mg/dL):
<100 Target level for high risk ASCVD patient
<130 Optimal for general population
130-159 Near optimal for general population
160-189 Borderline High
190-219 High
>=220 Very High Performing Location [facility] - [address] [place] [address]
--- OUTSIDE RECORDS SUMMARY | 2024-12-09 19:30 | External Medical Summary ---
Author Name Unknown Address Unknown Organization K01:[facility]ORY [facility] [place] - [address] [facility] [address] [facility] [address] Laboratory Report Ordering Provider Test Date Status JAG SHULTZ 09/17/2024 14:20:27 Final Observation Date Value Abnormality Reference (Units ) Status WBC, Total 09/17/2024 14:20:27 11.25 Above high normal 4.00-10.80 (K/uL) Final RBC 09/17/2024 14:20:27 4.41 3.85-5.15 (M/uL) Final Hemoglobin 09/17/2024 14:20:27 13.0 12.0-15.3 (g/dL) Final HCT 09/17/2024 14:20:27 41.4 36.0-45.2 (%) Final MCV 09/17/2024 14:20:27 93.9 81.5-97.5 (fL) Final MCH 09/17/2024 14:20:27 29.5 27.0-34.0 (pg) Final MCHC 09/17/2024 14:20:27 31.4 32.0-36.0 (g/dL) Final RDW 09/17/2024 14:20:27 13.3 11.5-15.5 (%) Final Platelets 09/17/2024 14:20:27 331 140-400 (K/uL) Final MPV 09/17/2024 14:20:27 10.3 6.6-11.1 (fL) Final Nucleated erythrocytes/100 leukocytes [Ratio] in Blood by Automated count 09/17/2024 14:20:27 0 <=0 (/100 WBCs) Final Performing Location [facility]ORY [facility] [place] - [address] [place] [address]
--- OUTSIDE RECORDS SUMMARY | 2024-12-09 19:30 | External Medical Summary ---
Author Name Unknown Address Unknown Organization K01:[facility] - [address] [facility] [address] Laboratory Report Ordering Provider Test Date Status JAG SHULTZ 09/17/2024 14:20:27 Final Observation Date Value Abnormality Reference (Units ) Status SYNC LEUKOCYTES IN BLOOD BY AUTOMATED COUNT 09/17/2024 14:20:27 11.25 Above high normal 4.00-10.80 (K/uL) Final Segs 09/17/2024 14:20:27 63.6 40.0-75.0 (%) Final Lymphs % 09/17/2024 14:20:27 25.7 18.0-42.0 (%) Final Monos 09/17/2024 14:20:27 5.8 1.0-11.0 (%) Final Eosinophils 09/17/2024 14:20:27 3.8 0.0-6.0 (%) Final Basos 09/17/2024 14:20:27 0.7 0.0-2.0 (%) Final Immature Granulocyte, Percent 09/17/2024 14:20:27 0.4 0.0-2.0 (%) Final Absolute Segs 09/17/2024 14:20:27 7.15 1.80-7.70 (K/uL) Final Lymphs, absolute 09/17/2024 14:20:27 2.89 1.00-4.80 (K/ul) Final Monos, Abs 09/17/2024 14:20:27 0.65 0.00-1.10 (K/uL) Final Eos, Abs 09/17/2024 14:20:27 0.43 0.00-0.70 (K/uL) Final Basos, Abs 09/17/2024 14:20:27 0.08 0.00-0.20 (K/uL) Final Immature Granulocytes, Number 09/17/2024 14:20:27 0.05 0.00-0.20 (K/uL) Final Performing Location [facility] [place] [address] [facility] [address]
--- OUTSIDE RECORDS SUMMARY | 2024-12-09 19:30 | External Medical Summary | Summary of Care ---
Author Name Unknown Organization [facility] Address [address] [place] [address] Phone [phone] Care Team Providers Care Intranet Specialist Name Role Phone Lexii Andujar DO Primary Care Provider [phone] Reason for Visit * Reason Comments eRx-Medication Refill Encounter Details Date Type Department Care Team (Late st Contact Info) Description 08/17/2024 Refill Family Practice [address], [place] [address] [place] [phone] Lexii Andujar DO [address] [place], [place] [id number] Restless legs syndrome; Anxiety state; Type 2 diabetes mellitus with hemoglobin A1c goal of 7.0%-8.0% ([facility]); 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 ([facility] 023 Active BD Pen Needle Short U/F 31G X 8 MM (Insulin Pen Needle) use five times daily 500 Each 3 023 Active Plavix 75 MG Oral Tablet Take 1 Tablet by mouth in the morning. 023 Active Aspirin 81 MG Oral Tablet Delayed Release Take 1 Tablet by mouth in the morning. Active Atorvastatin Calcium 20 MG Oral Tablet (Lipitor) Take 1 Tablet by mouth in the morning. Prescribed by Carmen Waggoner PA-C. Active Triamcinolone Acetonide 0.5 % External Cream (Aristocort)Indic ations:Dermatitis Apply topically to affected area 2 times a day. Chest rash 60 g 024 Active Apixaban 2.5 MG Oral Tablet (Eliquis) Take 1 Tablet by mouth in the morning and 1 Tablet before bedtime. 60 Tablet 11 Active Ferrous Sulfate 325 (65 Fe) MG Oral Tablet (Feosol)Indicatio ns:Anemia Take 1 Tablet by mouth in the morning and 1 Tablet before bedtime. 024 Active OneTouch Verio In Vitro Strip (Glucose Blood)Indications :Hypoglycemia,Typ e 2 diabetes mellitus with stage 3b chronic kidney disease, with long-term current use of insulin (HCC) Use up to 4 times a day E11.9 in case of dexcom failure 100 Strip 11 024 Active Senna-Time S 8.6-50 MG Oral Tablet (senna-docusate) TAKE 1 TABLET BY MOUTH IN THE MORNING AND AT BEDTIME 60 Tablet 024 Active Potassium Chloride Ayleen ER 20 [...] IN THE MORNING 30 Capsule 024 Active Omeprazole 20 MG Oral Capsule Delayed Release (PriLOSEC)Indicat ions:Gastroesopha geal reflux disease with esophagitis without hemorrhage TAKE 1 CAPSULE BY MOUTH ONCE DAILY IN THE MORNING 30 Capsule 024 Active Furosemide 40 MG Oral Tablet (Lasix)Indication s:Chronic diastolic congestive heart failure (HCC) Take 1.5 Tablets by mouth 2 times a day. 84 Tablet 024 Active traZODone HCl 50 MG Oral Tablet (Desyrel) Take 1 Tablet by mouth at bedtime. 30 Tablet 5 024 Active Cholecalciferol 25 MCG (1000 UT) Oral Capsule Take 1 capsule by mouth once daily in the morning 30 Capsule 024 Active Dicyclomine HCl 20 MG Oral Tablet (Bentyl)Indicatio ns:Irritable bowel syndrome, unspecified type Take 1 Tablet by mouth 4 times a day as needed for Cramping. 180 Tablet 3 024 Active Mounjaro 7.5 MG/0.5ML Subcutaneous Solution Pen-injector (Tirzepatide)Aurea cations:Type 2 diabetes mellitus with stage 3b chronic kidney disease, with long-term current use of insulin ([facility]) Inject 7.5 mg under the skin once a week. 2 mL 11 024 Active Ondansetron HCl 4 MG Oral Tablet (Zofran)Indicatio ns:Dizziness and giddiness Take 1 Tablet (4 mg) by mouth every 6 hours as needed for Nausea. 90 Tablet 6 024 Active clonazePAM 0.5 MG Oral Tablet (KlonoPIN)Indicat ions:Restless legs syndrome,Anxiety state TAKE 1 TABLET BY MOUTH THREE TIMES A DAY 84 Tablet 024 Active Levothyroxine Sodium 200 MCG Oral Tablet (Levoxyl)Indicati ons:Postsurgical hypothyroidism TAKE 1 TABLET BY MOUTH ONCE DAILY IN THE MORNING 90 Tablet 1 024 Active traMADol HCl 50 MG Oral Tablet (Ultram)Indicatio ns:Lumbar radiculopathy,Nicolette shira osteoarthritis of both knees Take 1 Tablet by mouth every 8 hours as needed for Pain, Severe. 90 Tablet 024 Active Meclizine HCl 12.5 MG Oral [...] THE EVENING 15 mL 5 024 Active rOPINIRole HCl 2 MG Oral Tablet (Requip)Indicatio [...] AT BEDTIME 60 Tablet 5 024 Active Tresiba FlexTouch 100 UNIT/ML Subcutaneous Solution Pen-injector (Insulin Degludec)Indicati ons:Type 2 diabetes mellitus with hemoglobin A1c goal of 7.0%-8.0% (HCC) INJECT 50 UNITS UNDER THE SKIN IN THE EVENING 60 mL 3 023 2023 Discontinued Magnesium Oxide 400 MG Oral [...] BEDTIME 30 Tablet 5 024 2023 Discontinued documented as of this encounter (statuses as of 08/20/2024) Active Problems Problem Noted Date Diagnosed Date Body mass index (BMI) of 45.0 to 49.9 in adult 0 04/02/2024 Overview: Per Obesity protocol - Per Obesity protocol - Per Obesity protocol - Per Obesity Taxonomy ICD-10 update of inactive term VRE (vancomycin-resistant Enterococci) infection 02/02/2024 Hydronephrosis of right kidney 12/22/2023 Iron deficiency 10/20/2023 Morbid (severe) obesity due to excess calories 0 10/04/2023 DM peripheral angiopathy 07/13/2023 Assessment & Plan (07/13/2023 1:47 PM EDT): Now followed by vascular, reports upcoming carotid surgery at [facility]. She states she has rx for atorvastatin and plavix to burr picker at pharmacy. 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 Atherosclerosis of [place] co ronary artery without angina pectoris 12/31/2021 [...] Faviola Therapy: No beta-faviola secondary to --unknown WLII Inhibitor/ARB Therapy: No WILI/ARB/ARNI secondary to: [...] rx evidently given by vascular, has to burr picker rx documented as of this encounter (statuses as of 08/20/2024) Resolved Problems Problem Noted Date Diagnosed Date [...] as of this encounter (statuses as of 08/20/2024) Immunizations Name Administration Dates Next Due COVID-19 mRNA, LNP-s, No Pre serve, 2-Dose Series (Pfizer) 01/08/2021,12/18/2020 COVID-19, LNP-s, No Preserve , Navarro-sucrose, Ages 12+ (Pfizer) 2022,10/01/2021 COVID-19, MRNA-LNP, PF, 30 M CG/0.3 mL, 12 YRS AND ABOVE, IM (PFIZER-Comirnaty) 07/31/2024,07/26/2023 Pneumococcal Conjugate Vacci ne, 20-valent ([id number]) 03/12/2022 Pneumococcal Polysaccharide PPV23 (Pneumovax) 08/22/2009,06/15/2006 RSV [...] Date Recorded PHQ Adult Total Score 10 07/19/2024 Hunger Vital Sign Answer Date Recorded Within the past 12 months, y ou worried that your food would run out before you got the money to buy more. Never true 02/14/20 Within the past 12 months, t he [...] Telephone Encounter - Lexii Andujar DO - 08/20/2024 9:05 AM ESTSigned Prescriptions: Disp Refills Tresiba FlexTouch 100 UNIT/ML Subcutaneous*15 mL 5 Sig: INJECT 38 UNITS UNDER THE SKIN IN THE EVENINGAuthorizing Provider: LEXII ANDUJAR AOrdering User: SAPNA LAY rOPINIRole HCl 2 MG Oral Tablet (Requip) 30 Tab*5 Sig: TAKE 1 TABLET BY MOUTH AT BEDTIMEAuthorizing Provider: LEXII ANDUJAR Magnesium Oxide 400 MG Oral Tablet 60 Tab*5 Sig: TA KE 1 TABLET BY MOUTH IN THE MORNING AND AT BEDTIMEAuthorizing Provider: LEXII ANDUJAR ARefused Prescriptions: Disp Refills clonazePAM 0.5 MG Oral Tablet (KlonoPIN) 84 Tab*0 Sig: TAKE 1 TABLET BY MOUTH THREE TIMES A DAYRefused By: SAPNA LAY for Refusal: Too soon * Telephone Encounter - Sapna Lay [facility] - 08/20/2024 7:30 AM EST Pending Prescriptions: Disp Refills rOPINIRole HCl 2 MG Oral Tablet (Requip) 30 Tab*5 Sig: TAKE 1 TABLET BY MOUTH AT BEDTIME Magnesium Oxide 400 MG Oral Tablet 60 Tab*5 Sig: TAKE 1 TABLET BY MOUTH IN THE MORNING AND AT BEDTIME Signed Prescriptions: Disp Refills Tresiba FlexTouch 100 UNIT/ML Subcutaneous*15 mL 5 Sig: INJECT 38 UNI TS UNDER THE SKIN IN THE EVENING Authorizing Provider: LEXII ANDUJAR Ordering User: SAPNA LAY Refused Prescriptions: Disp Refills clonazePAM 0.5 MG Oral Tablet (KlonoPIN) 84 Tab*0 Sig: TAKE 1 TABLET BY MOUTH THREE TIMES A DAY Refused By: SAPNA LAY Reason for Refusal: Too soon * Telephone Encounter - Sapna Lay [facility] - 08/20/2024 7:27 AM EST Too soon until 08/22 I have reviewed the patients controlled substance dispensing history in the Prescription Drug Monitoring Program in compliance with the [facility] regulations before prescribing a controlled substance. PDMP checked on 08/20/2024. Pending Prescriptions: Disp Refills clonazePAM 0.5 MG Oral Tablet (KlonoPIN) *84 Tab*0 Sig: TAKE 1 TABLET BY MOUTH THREE TIMES A DAY Signed Prescriptions: Disp Refills Tresiba FlexTouch 100 UNIT/ML Subcutaneous*15 mL 5 Sig: INJECT 38 UNITS UNDER THE SKIN IN THE EVENING Authorizing Provider: LEXII ANDUJAR Ordering User: SAPNA LAY Last Visit: 07/31/2024 (in office), 04/23/2024 (telemedicine) Next Visit: 09/13/2024 Date medication was last filled: 07/30/24 Date medication is due for refill: 08/25/24 Pharmacy: [address] Is this request for a controlled [...] Review. Please approve if appropriate. Thank you, Sapna Lay PharmD Clinical Pharmacist [facility] ([facility]) [phone] 08/20/2024, 7:27 AM * Telephone Encounter - Sapna Lay RPh - 08/20/2024 7:25 AM EST PER 07/31 MTM : " Decrease Tresiba 38 units at bedtime " Thank you, Sapna Lay PharmD Clinical Pharmacist [facility] ([facility]) [phone] 08/20/2024, 7:25 AM documented in this encounter Plan of Treatment Upcoming Encounters Date Type Department Care Team (Late st Contact Info) Description 09/12/2024 11:00 AM EST Office Visit NephrologyGregorio [address] [place] [address] Erik Lenz MD [address] [place] [address] 09/13/2024 9:20 AM EST Office Visit Family Practice [address] [facility], [place] [address] [facility] [phone] Lexii Andujar DO [address] [facility] [place] [address] 09/13/2024 10:00 AM EST Office Visit Family Practice [address] [place] [address] [address] [place] [phone] College, Pharmacist [address] [place] [address] 01/15/2025 1:30 PM EDT Office Visit Cardiology, [facility] [address] [facility] [place] [place] [address] Marjorie Powell PA-C [facility] [address] 02/19/2025 1:00 PM EDT Nurse Only Family Practice [address] [place] [address] [address] [place] [phone] Shira De La Rosa, LEXI [address] [facility] [place] [phone] 06/13/2025 1:30 PM EDT Imaging Radiology [address] [facility] [place] [address] Scheduled Procedures Name Priority Associated Diagnoses Date/Ti me COLONOSCOPY FLEXIBLE PROXIMAL DIAGNOSTIC Recall Colon cancer screening Health Maintenance Due Date Last Done Comments Cologuard 2000 Fecal Occult Blood Test 2000 Sigmoidoscopy 2000 Albumin/Creatinine Ratio 08/05/2024 023, 11/01/2022, 01/07/2022, Additional history exists Diabetic Foot Exam 10/04/2024 10/04/2023, 0 11/01/2022, 01/07/2022, Additional history exists TSH 12/21/2024 12/22/2023, 09/26, 11/01/2022, Additional history exists GFR 12/25/2024 06/26/2024, 04/27, 02/02/2024, Additional history exists HbA1c 12/25/2024 06/26/2024, 0709/2023, 12/22/2023, Additional history exists CKD PHOS USE SMARTSET 67790 12/26/2024 040 10/2023, 02/11/2023, 01/07/2022, Additional history exists Adult Wellness Visit 02/13/2025 02/14/2024, 08/05/20 22 Mammogram 06/12/2025 06/12/2024, 05/27, 04/21/2023, Additional history exists CKD HGB USE SMARTSET 45916 06/26/202506/26, 06/26/2024, 05/18/2024, Additional history exists Diabetic Eye Exam 07/06/2025 07/06/2024, , 07/06/2024, Additional history exists Depression Monitoring 07/19/2025 07/19/2024, 024 Colonoscopy 02/17/2026 02/18/2016, 01/25, 01/28/2006, Additional history [...] use of insulin ([facility]) Restless legs syndrome Restless legs syndrome (RLS) ELLIE (generalized anxiety disorder) Generalized anxiety disorder Mild episode of recurrent major depressive disorder ([facility]) Advanced care planning/counseling discussion Other specified counseling ILD (interstitial lung disease) ([facility])- Primary Postinflammatory pulmonary fibrosis Fibromyalgia Mylagia and myositis, unspecified Moderate episode of recurrent major depressive disorder ([facility]) Primary osteoarthritis of both knees Primary localized osteoarthrosis, lower leg Chronic hypoxemic respiratory failure ([facility]) Chronic respiratory failure 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 3b chronic kidney disease ([facility]) Advanced care planning/counseling discussion- Primary Other specified counseling Atherosclerosis of [place] coronary artery of [place] heart without angina pectoris Carotid artery stenosis, [...] less than 8.0% ([facility]) Fibromyalgia Mylagia and myositis, unspecified Restless legs syndrome Restless legs syndrome (RLS) Chronic kidney disease, stage 3b ([facility]) History of pulmonary embolus (PE) Personal history of pulmonary embolism Moderate episode of recurrent major depressive disorder ([facility]) Advanced care planning/counseling discussion- Primary Other specified counseling Atherosclerosis of [place] coronary artery of [place] heart without angina pectoris Frank filter in place Other postprocedural status 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 3b chronic kidney disease ([facility]) Recurrent deep vein thrombosis (DVT) of both lower extremities (HCC) Chronic hypoxemic respiratory failure (HCC) Chronic respiratory failure Gastroesophageal reflux disease with esophagitis without hemorrhage Sacroiliitis, not elsewhere classified ([facility]) Sacroiliitis, not elsewhere classified Postsurgical [...] syndrome (RLS) Anxiety state Anxiety state, unspecified Type 2 diabetes mellitus with hemoglobin A1c goal of 7.0%-8.0% (HCC) 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, NYHA class 1 and CKD stage 3 (HCC) Chronic diastolic congestive heart failure (HCC) Chronic diastolic heart failure Screening mammogram for breast cancer documented in this encounter Advance Directives Documents on File Type Date Recorded Patient Ict Business Development Manager Expl anation POLST 03/19/2020 4:25 [...] (no specific identity) Health Care Power of Boat Worker Princess Other - (no specific identity) Health Care Power of Boat Worker Care Teams Intranet Specialist Relationship Specialty Start Date End Date Lexii Andujar DO [address] [place] [address] PCP - General Internal Medicine 03/08/24 documented as of this encounter
--- OUTSIDE RECORDS SUMMARY | 2024-12-09 19:30 | External Medical Summary ---
Author Name Unknown Address Unknown Organization K01:[facility] - [address] [facility] [address] Laboratory Report Ordering Provider Test Date Status JAG SHULTZ 09/17/2024 14:20:27 Final Observation Date Value Abnormality Reference (Units ) Status BUN 09/17/2024 14:20:27 28 Above high normal 6-20 (mg/dL) Final Creatinine 09/17/2024 14:20:27 1.8 Above high normal 0.5-1.0 (mg/dL) Final Glomerular filtration rate/1.73 sq M.predicted [Volume Rate/Area] in Serum, Plasma or Blood by Creatinine-based formula (CKD-EPI) 09/17/2024 14:20:27 31 Below low normal >=60 (mL/min) Final eGFR is calculated based on the CKD-EPI 2020 equation. Sodium 09/17/2024 14:20:27 139 135-146 (m mol/L) Final Potassium 09/17/2024 14:20:27 5.0 3.5-5.1 (m mol/L) Final Cl 09/17/2024 14:20:27 96 Below low normal 98- 107 (mmol/L) Final CO2 09/17/2024 14:20:27 30 22-32 (mmo l/L) Final Anion gap 09/17/2024 14:20:27 13 7-15 (mmol /L) Final Glucose 09/17/2024 14:20:27 170 Above high normal 70 -120 (mg/dL) Final Albumin 09/17/2024 14:20:27 4.1 3.8-5.0 (g /dL) Final AST (Aspartate aminotransferase) 09/17/2024 14:20:27 17 10-35 (U/L) Fin al Alk Phos 09/17/2024 14:20:27 131 Above high normal 35 -130 (U/L) Final Bilirubin, Total 09/17/2024 14:20:27 0.3 <=1 .2 (mg/dL) Final Calcium 09/17/2024 14:20:27 10.1 8.4-10.2 ( mg/dL) Final Protein 09/17/2024 14:20:27 7.5 6.0-8.3 (g /dL) Final ALT (Alanine aminotransferase) 09/17/2024 14:20:27 11 10-35 (U/L) Adrián astorga Performing Location [facility] [place] [address] [facility], [place] [address]
--- OUTSIDE RECORDS SUMMARY | 2024-12-09 19:30 | External Medical Summary | Summary of Care ---
Author Name Unknown Organization [facility] Address [address] [place] [address] Phone [phone] Care Team Providers Care Plastic Roller Name Role Phone Galdino Andujar DO Primary Care Provider Reason for Visit * Reason Comments Dosage Adjustment In Person (Anticoag Cl inic) Diabetes Follow-Up Encounter Details Date Type Department Care Team (Late st Contact Info) Description 09/17/2024 1:00 PM EST Office Visit Family Practice 65 [facility] [address] [place] [address] Naschitti, Pharmacist [address] [address] Type 2 diabetes mellitus with stage 3b [...] this encounter (statuses as of 09/20/2024) Medications VALENTINATOUCH DELFRANTZ LANCETS 33G [facility] Check blood sugars 3-4 times daily 180 [...] Dexcom G7 Sensor Use as directed. (From [facility]) 06/01/20 Active BD Pen Needle Short U/F 31G X 8 MM (Insulin Pen Needle) use five times daily 500 Each 3 07/20/20 Active Plavix 75 MG Oral Tablet Take [...] ajor depressive disorder, recurrent, moderate ([facility]) TAKE 1 CAPSULE BY MOUTH [...] insulin ([facility]) Inject 7.5 mg under the [...] THE MORNING AND AT BEDTIME 60 Tablet 08/20/20 24 Active clonazePAM 0.5 MG Oral Tablet (KlonoPIN)Indicati ons:Restless legs syndrome,Anxiety state Take 1 Tablet by mouth in the morning and 1 Tablet at noon and 1 Tablet before bedtime. 84 Tablet 08/24/20 24 Active Atorvastatin Calcium 20 MG Oral Tablet (Lipitor) Take 1 Tablet by mouth in the morning. Prescribed by Carmen Waggoner PA-C. 024 Discontin ued(Adver se reaction) Triamcinolone Acetonide 0.5 % External Cream (Aristocort)Indica tions:Dermatitis Apply topically to affected area 2 times a day. Chest rash 60 g 10/04/19 24 024 Discontin ued(Medic ation List Clean Up) Furosemide 40 MG Oral Tablet (Lasix)Indications :Chronic diastolic congestive heart failure (HCC) Take 1.5 Tablets by mouth 2 times a day. 84 Tablet 5 05/17/20 24 024 Discontin ued(Refil l) traMADol HCl 50 MG Oral Tablet (Ultram)Indication s:Lumbar radiculopathy,Prim elif osteoarthritis of both knees Take 1 Tablet by mouth every 8 hours as needed for Pain, Severe. 90 Tablet 07/31/20 24 024 Discontin ued(Refil l) Cefdinir 300 MG Oral Capsule (Omnicef) Take 1 Capsule by mouth in the morning for 7 days. 7 Capsule 07/31/20 24 024 Discontin ued(Medic ation List Clean Up) documented as of this [...] carotid surgery at [facility]. She states she has rx for atorvastatin and plavix to slat pickler at pharmacy. 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 Atherosclerosis of [place] co ronary artery without angina pectoris 12/31/2021 [...] 8:05 AM EDT): Home PT to start [place] filter in place 08/19/2014 History of [...] rx evidently given by vascular, has to slat pickler rx documented as of this encounter [...] mRNA, LNP-s, No Pre serve, 2-Dose Series ([employer]) 01/08/2021,12/18/2020 COVID-19, LNP-s, No Preserve , Navarro-sucrose, Ages 12+ ([employer]) 2022,10/01/2021 COVID-19, MRNA-LNP, PF, 30 M CG/0.3 mL, 12 YRS AND ABOVE, IM (PFIZER-Comirnaty) 07/31/2024,07/26/2023 Pneumococcal Conjugate Vacci ne, 20-valent ([id number]) 03/12/2022 Pneumococcal Polysaccharide PPV23 (Pneumovax) 08/22/2009,06/15/2006 RSV [...] the money to buy more. Never true 05/21/20 24 Within the past 12 months, t [...] this encounter Progress Notes * Frances Ellis, [facility] - 09/20/2024 8:45 AM EST Called [facility] and confirmed med changes as patient reported she was still getting Cymbalta 30 mg in pill boxes. Also PCP switched atorvastatin to rosuvastatin due to muscle aches. Frances Duong, Pharm D, BCACP Clinical Pharmacist [address] - Medication Therapy [facility] 09/20/2024, 8:46 AM Ph. [phone] * Frances Ellis [facility] - 09/17/2024 1:17 PM EST Images from the original note were not included. Medication Therapy Disease Management [facility] - Diabetes Management Progress Note Stephanie Camp, identified by name and date of , is a 69 year old female being seen for diabetes management/education. Patient presents for return diabetic visit. DIABETES: Current diabetic medications: Decrease Novolog - 8 units with breakfast, 6 units lunch and 10 units with supper + SS 1:30 >150before meals Decrease Tresiba 38 units at bedtime Mounjaro 7.5mg weekly Medication Injection Site: N/A Lifestyle: Diet: reports decreased appetite on Mounjaro. Breakfast - Yogurt + banana Lunch - apple and PB Dinner - chicken, hamburger, fish, etc Glucose Review/SMBG: Readings obtained from patient device [...] 2019 BP Readings from Last 3 Encounters: 09/17/24 116/66 07/31/24 114/56 07/17/24 108/60 Blood pressure at goal: yes HYPERLIPIDEMIA: Recent Labs Units 11/07/23 1643 LDL CHOLESTEROL (CALCULATED) - [facility] mg/dL 60 Does patient have clinical ASCVD? Yes, is patient LDL less than 55 mg/dL? No: Optimize statin therapy - Start rosuvastatin 5 mg as patient had stopped atorvastatin due to muscle ache. HEALTH MAINTENANCE REVIEW: Health Maintenance Due Topic Date Due Albumin/Creatinine Ratio 08/05/2024 Diabetic Foot Exam 10/04/2024 ASSESSMENT & PLAN: ICD-10-CM 1. Type 2 diabetes mellitus with stage 3b chronic kidney disease, with long-term current use of insulin ([facility]) E11.22 N18.32 Z79.4 BG Readings - Blood sugars uncontrolled. BGs consistently elevated recently Medications - Reviewed current regimen, patient is adherent to regimen. Patient wants to keep Mounjaro at same dose for now, reports no appetite. Will increase basal insulin for now. Diet, Exercise, Lifestyle - No significant lifestyle changes since last visit. Discussed with patient. Patient is agreeable to SMBG time(s) daily. Patient aware to contact clinic if any hypoglycemia before next visit. MEDICATION CHANGES: yes, see below; preferred pharmacy: [facility] Medications: Novolog - 8 units with breakfast, 6 units lunch and 10 units with supper + SS 1:30 >150 before meals Increase Tresiba 41 units at bedtime Mounjaro 7.5mg weekly HEALTH MAINTENANCE INTERVENTIONS: Labs: Ordered & Scheduled: Lipid Panel after at least 6-8 weeks on rosuvastatin, also needs UACR Immunizations: Up to Date Foot Exam: Up to Date Eye Exam: Up to Date Annual Wellness Visit: Up to Date FOLLOW UP: Return to clinic in 4 weeks 10/22/2024 I spent a total of 20-29 minutes (exact time 25 mins) on the date of service in preparation, delivery, and documentation of the care provided to Stephanie Camp excluding any time spent in the performance of separately billed services. Frances Huerta RP Clinical Pharmacist - Spa Receptionist Medication Therapy Management Clinic 09/17/2024, 1:17 PM documented in this encounter Plan of Treatment Upcoming Encounters Date Type Department Care Team (Late st Contact Info) Description 10/11/2024 7:40 AM EST Office Visit Pulmonary Medicine, [facility] [address] [facility] [place] [address] Jhonny Holley MD [address] [place] [address] 10/22/2024 1:40 PM EST Office Visit Family Practice [address] [place] [address] [address] [place] [phone] Galdino Andujar DO [address] [place] [address] 02/19/2025 1:00 PM EDT Nurse Only Family Practice [address] [place] [address] [place] [phone] Shira De La Rosa, LEXI 293 [place] [phone] 06/13/2025 1:30 PM EDT Imaging Radiology [address] 132 [facility] [place] [address] Scheduled Procedures Name Priority Associated Diagnoses Date/Ti [...] Additional history exists CKD PHOS USE SMARTSET 05367 12/26/2024 04/0 10/2023, 02/11/2023, 01/07/2022, Additional history exists Adult Wellness Visit 02/13/2025 02/14/2024, 08/05/20 22 GFR 03/18/2025 09/17/2024, 09/2023, 05/18/2024, Additional history exists Mammogram 06/12/2025 06/12/2024, 05/27, 04/21/2023, Additional history exists Diabetic Eye Exam 07/06/2025 07/06/2024, , 07/06/2024, Additional history exists Depression Monitoring 09/07/2025 09/07/2024, 024 CKD HGB USE SMARTSET 14377 09/17/202509/17, 09/17/2024, 06/26/2024, Additional history exists Colonoscopy [...] of insulin ([facility]) Restless legs syndrome Restless legs [...] depressive disorder ([facility]) Primary osteoarthritis of both knees Primary localized osteoarthrosis, lower leg Chronic hypoxemic respiratory failure (HCC) Chronic respiratory failure 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 3b chronic kidney disease ([facility]) Advanced care planning/counseling discussion- Primary Other specified counseling Atherosclerosis of [place] coronary artery of [place] heart without angina pectoris Carotid artery stenosis, [...] discussion- Primary Other specified counseling Atherosclerosis of [place] coronary artery of [place] heart without angina pectoris [place] filter in place Other postprocedural status Hypertensive [...] Documents on File Type Date Recorded Patient Energy Advisor Expl anation POLST 03/19/2020 4:25 PM POLST [...] (no specific identity) Health Care Power of Parts Counter Associate Princess Allen Other - (no specific identity) Health Care Power of Parts Counter Associate Care Teams Plastic Roller Relationship Specialty Start Date End Date Galdino Andujar DO [address] [place] [address] PCP - General Internal Medicine 03/08/24 documented as of this encounter
--- OUTSIDE RECORDS SUMMARY | 2024-12-09 19:30 | External Medical Summary | Summary of Care ---
Author Name Unknown Organization [facility] Address [address] [place] [address] Phone [phone] Care Team Providers Care Precision Dancer Name Role Phone Lexii Andujar DO Primary Care Provider [phone] Reason for Visit * Reason Onset Date Comments Medication Refill 08/22/2024 Encounter Details Date Type Department Care Team (Late st Contact Info) Description 08/22/2024 Refill Family Practice [address] [place] [address] [place] [phone] Lexii Andujar DO [address] [place], [place] [phone] Restless legs syndrome; Anxiety state Allergies Active [...] as of this encounter (statuses as of 08/24/2024) Medications ONETOUCH DELICA LANCETS 33G MISC Check [...] Dexcom G7 Sensor Use as directed. (From [facility]) 06/01/20 Active BD Pen Needle Short [...] day. Chest rash 60 g 10/04/19 24 Active Apixaban 2.5 MG Oral Tablet (Eliquis) [...] [facility]),Chronic diastolic congestive heart failure (HCC) TAKE 1 TABLET BY MOUTH IN THE MORNING AND AT BEDTIME 60 Tablet 04/18/20 24 Active DULoxetine HCl 60 MG Oral Capsule Delayed Release Particles (Cymbalta)Indicati ons:Fibromyalgia,M ajor depressive disorder, recurrent, moderate ([facility]) TAKE 1 CAPSULE BY MOUTH ONCE DAILY IN THE MORNING 30 Capsule 5 04/18/20 24 Active Omeprazole 20 MG Oral Capsule Delayed Release (PriLOSEC)Indicati ons:Gastroesophage al reflux disease with esophagitis without hemorrhage TAKE 1 CAPSULE BY MOUTH ONCE DAILY IN THE MORNING 30 Capsule 04/18/20 24 Active Furosemide 40 MG Oral Tablet (Lasix)Indications :Chronic diastolic congestive heart failure (HCC) Take 1.5 Tablets by mouth 2 times a day. 84 Tablet 05/17/20 24 Active traZODone HCl 50 MG Oral [...] of insulin ([facility]) Inject 7.5 mg under the skin [...] MORNING 90 Tablet 1 07/29/20 24 Active traMADol HCl 50 MG Oral Tablet (Ultram)Indication s:Lumbar radiculopathy,Prim elif osteoarthritis of both knees Take 1 Tablet by mouth every 8 hours as needed for Pain, Severe. 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 84 Tablet 08/24/20 24 Active clonazePAM 0.5 MG Oral Tablet (KlonoPIN)Indicati ons:Restless legs syndrome,Anxiety state TAKE 1 TABLET BY MOUTH THREE TIMES A DAY 84 Tablet 07/30/20 24 024 Discontin ued(Refil l) documented as of this encounter (statuses as of 08/24/2024) Active Problems Problem Noted Date Diagnosed Date [...] by vascular, reports upcoming carotid surgery at [facility]. She states she has rx for atorvastatin [...] 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 Atherosclerosis of [place] co ronary artery without angina pectoris 12/31/2021 [...] 8:05 AM EDT): Home PT to start [place] filter in place 08/19/2014 History of pulmonary [...] as of this encounter (statuses as of 08/24/2024) Resolved Problems Problem Noted Date Diagnosed Date [...] as of this encounter (statuses as of 08/24/2024) Immunizations Name Administration Dates Next Due COVID-19 mRNA, LNP-s, No Pre serve, 2-Dose Series (Hyper9) 01/08/2021,12/18/2020 COVID-19, LNP-s, No Preserve , Navarro-sucrose, Ages 12+ (Pfizer) 2022,10/01/2021 COVID-19, MRNA-LNP, PF, 30 M CG/0.3 mL, 12 YRS AND ABOVE, IM (UpDown-Comirnaty) 07/31/2024,07/26/2023 Pneumococcal Conjugate Vacci ne, 20-valent ([id number]) 03/12/2022 Pneumococcal Polysaccharide PPV23 (Pneumovax) 08/22/2009,06/15/2006 RSV [...] No 02/14/2024 Does the household have a [facility] source of income? (Household - for ages [...] Telephone Encounter - Lexii Andujar DO - 08/24/2024 10:12 AM ESTSigned Prescriptions: Disp Refills clonazePAM 0.5 MG Oral Tablet (KlonoPIN) 84 Tab*0 Sig: Take 1 Tablet by mouth in the morning and 1 Tablet at noon and 1 Tablet before bedtime.Authorizing Provider: LEXII ANDUJAR * Telephone Encounter - Lexii Andujar DO - 08/24/2024 10:11 AM EST I have reviewed the patients controlled substance dispensing history in the Prescription Drug Monitoring Program in compliance with the [facility] regulations before prescribing a controlled [...] found in Results Review. Medication is due 08/26/2024 which is Tuesday Will refill today * Telephone Encounter - Corinne Stark [facility] - 08/22/2024 10:12 AM ESTPending Prescriptions: Disp Refills clonazePAM 0.5 MG Oral Tablet (KlonoPIN) 84 Tab*0 Sig: Take 1 Tablet by mouth in the morning and 1 Tablet at noon and 1 Tablet before bedtime. * Telephone Encounter - Corinne Stark RPh - 08/22/2024 10:11 AM EST Pharmacy called and stated that they request the medication earlier (requested on 08-17-24 ) due regina gets her medication packaged and they have a certain date they need to it get done by , please advise I have reviewed the patients controlled substance dispensing history in the Prescription Drug Monitoring Program in compliance with the [facility] regulations before prescribing a controlled substance. PDMP checked on 08/22/2024. Pending Prescriptions: Disp Refills clonazePAM 0.5 MG Oral Tablet (KlonoPIN) 84 Tab*0 Sig: Take 1 Tablet by mouth in the morning and 1 Tablet at noon and 1 Tablet before bedtime. Last Visit: 07/31/2024 (in office), 04/23/2024 (telemedicine) Next Visit: 09/13/2024 Date medication was last filled: 07/30/24 Date medication is due for refill: 08/26/24 Pharmacy: [facility] [address] Is this request for a controlled [...] Results Review. Please approve if appropriate. Thanks, Corinne Stark PharmD Clinical Pharmacist [facility] ([facility]) [phone] 08/22/2024, 10:11 AM * Telephone Encounter - Mindy Pinedo PHARM Tech - 08/22/2024 9:54 AM EST Pharmacy called and stated that they request the medication earlier (requested on 08-17-24 ) due topt gets her medication packaged and they have a certain date they need to it get done by , please advise Did you pend patient's preferred pharmacy and medication before forwarding?yes Pharmacy: [facility] Pending Prescriptions: Disp Refills clonazePAM 0.5 MG Oral Tablet (KlonoPIN) 84 Tab*0 Sig: Take 1 Tablet by mouth in the morning and 1 Tablet at noon and 1 Tablet before bedtime. Last Visit: 07/31/2024 (in office), 04/23/2024 (telemedicine) Next Visit: 09/13/2024 If no future appointments scheduled, and last appointment is greater than a year ago, please schedule patient for a follow-up appointment Last date the medication was ordered: 07-30-24 Is this request for a controlled substance?Yes, What was the last refill date 07-30-24 w/ quantity 84 and dosage 0.5 mg and Urine Drug Screen was completed Urine [...] Results Component Value Date/Time CREAT 1.8 (H) 06/26/2024 02:30 PM CREAT 1.69 09/07/2023 12:00 AM CREAT 2.0 (H) 05/06/2020 08:46 AM POTASSIUM 4.7 06/26/2024 02:30 PM POTASSIUM 3.9 07/25/2023 12:00 AM POTASSIUM 4.0 05/06/2020 08:46 AM TSH 1.36 12/22/2023 11:39 AM TSH 5.35 (H) 05/06/2020 08:46 AM LDL 60 11/07/2023 04:43 PM LDL UNINTERPRETABLE RESULT 03/14/2019 01:54 PM LDL 126 03/14/2019 01:54 PM ALT 9 (L) 06/26/2024 02:30 PM ALT 27 05/06/2020 08:46 AM HGBA1C 7.8 (H) 06/26/2024 02:30 PM HGBA1C 7.5 (H) 09/20/2023 12:00 AM HGBA1C 7.3 (H) 01/23/2020 11:11 AM documented in this encounter Plan of Treatment Upcoming Encounters Date Type Department Care Team (Late st Contact Info) Description 09/12/2024 11:00 AM EST Office Visit Nephrology, [facility] [address] [place] [address] Erik Lenz MD [address] [place] [address] 09/17/2024 1:00 PM EST Office Visit Family Practice [address] [place] [address] 293 [place] [phone] College, Pharmacist [address] [place] [address] 09/17/2024 1:40 PM EST Office Visit Family Practice [address] [place] [address] 293 [place] [phone] Lexii Andujar DO 293 [place] [address] 01/15/2025 1:30 PM EDT Office Visit Cardiology, [facility] 132 [facility] [place] [address] Marjorie Powell PA-C 132 [facility] [place] [address] 02/19/2025 1:00 PM EDT Nurse Only Family Practice [address] [place] [address] 293 [place] [phone] Shira De La Rosa, LEXI [address] [place] [address] 06/13/2025 1:30 PM EDT Imaging Radiology [address] [place] [address] Scheduled Procedures Name Priority Associated Diagnoses Date/Ti [...] 02/02/2024, Additional history exists HbA1c 12/25/2024 06/26/2024, 07/0 09/2023, 12/22/2023, Additional history exists CKD PHOS USE SMARTSET 55306 12/26/2024 04/0 10/2023, 02/11/2023, 01/07/2022, Additional history exists Adult Wellness Visit 02/13/2025 02/14/2024, 08/05/20 22 Mammogram 06/12/2025 06/12/2024, 05/27, 04/21/2023, Additional history exists CKD HGB USE SMARTSET 78754 06/26/202506/26, 06/26/2024, 05/18/2024, Additional history exists Diabetic [...] discussion- Primary Other specified counseling Atherosclerosis of [place] coronary artery of [place] heart without angina pectoris Carotid artery stenosis, [...] discussion- Primary Other specified counseling Atherosclerosis of [place] coronary artery of [place] heart without angina pectoris Frank filter in [...] Documents on File Type Date Recorded Patient Counsel Expl anation POLST 03/19/2020 4:25 PM POLST [...] (no specific identity) Health Care Power of Gas Engine Operator Generators Princess Staplesfany Other - (no specific identity) Health Care Power of Gas Engine Operator Generators Care Teams Precision Dancer Relationship Specialty Start Date End Date Lexii Andujar DO [address] [place] [address] PCP - General Internal Medicine 03/08/24 documented as of this encounter
--- OUTSIDE RECORDS SUMMARY | 2024-12-09 19:30 | External Medical Summary | Summary of Care ---
Author Name Unknown Organization [facility] Address [address] [place] [address] Phone [phone] Care Team Providers Care Vice President Biostatistics Name Role Phone Galdino Andujar DO Primary Care Provider [phone] Reason for Visit * Reason Onset Date Comments Med Request 08/10/2024 Yeast Infection Encounter Details Date Type Department Care Team (Late st Contact Info) Description 08/10/2024 Telephone Family Practice [address] [facility], [place] [address] [place] [address] Galdino Andujar DO [address] [place] [address] Med Request (Yeast Infection) Allergies Active Allergy Reactions Criticality Noted Date [...] as of this encounter (statuses as of 08/10/2024) Medications ONETOUCH DELICA LANCETS 33G MISC Check [...] A1c goal of 7.0%-8.0% ([facility]) Inject 8 units with breakfast and 8units lunch and 10 units with dinner + sliding scale 1 units for every 25 units BG > 150. 150 mL 3 05/16/20 Active Dexcom G7 Sensor Use as directed. (From [facility]) 06/01/20 Active BD Pen Needle Short U/F 31G X 8 MM (Insulin Pen Needle) use five times daily 500 Each 3 07/20/20 Active Plavix 75 MG Oral Tablet Take 1 Tablet by mouth in the morning. 07/11/20 23 Active Aspirin 81 MG Oral Tablet Delayed Release Take 1 Tablet by mouth in the morning. 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 90 Tablet 6 07/04/20 24 Active clonazePAM 0.5 MG Oral Tablet (KlonoPIN)Indicati ons:Restless legs syndrome,Anxiety state TAKE 1 TABLET BY MOUTH THREE TIMES A DAY 84 Tablet 07/30/20 24 Active Levothyroxine Sodium 200 MCG Oral [...] bedtime. 60 Capsule 5 07/31/20 24 Active Fluconazole 150 MG Oral Tablet (Diflucan)Indicati ons:Yeast vaginitis Take 1 Tablet by mouth once for 1 dose. 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 Type 2 [...] 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 Atherosclerosis of [place] co ronary artery without angina pectoris [...] 8:05 AM EDT): Home PT to start Earp filter in place 08/19/2014 History of pulmonary [...] rx evidently given by vascular, has to car pick up driver rx documented as of this encounter (statuses as of 08/10/2024) Resolved Problems Problem Noted Date Diagnosed Date [...] as of this encounter (statuses as of 08/10/2024) Immunizations Name Administration Dates Next Due COVID-19 mRNA, LNP-s, No Pre serve, 2-Dose Series ([employer]) 01/08/2021,12/18/2020 COVID-19, LNP-s, No Preserve , Navarro-sucrose, Ages 12+ (Pfizer) 2022,10/01/2021 COVID-19, MRNA-LNP, PF, 30 M CG/0.3 mL, 12 YRS AND ABOVE, IM ([employer]-Comirnaty) 07/31/2024,07/26/2023 Pneumococcal Conjugate Vacci ne, 20-valent ([id number]) 03/12/2022 Pneumococcal Polysaccharide PPV23 (Pneumovax) 08/22/2009,06/15/2006 RSV [...] No 02/14/2024 Does the household have a surgeons choice medical centerr source of income? (Household - for ages [...] Telephone Encounter - Shira Gross LPN - 08/10/2024 4:14 PM EST Patient is aware and will comply. Thank you * Telephone Encounter - Galdino Andujar DO - 08/10/2024 3:52 PM EST Diflucan 150 mg x 1 sent to pharmacy * Telephone Encounter - Shira Gross LPN - 08/10/2024 3:03 PM EST States she has a vaginal yeast infection, itching, burning and cottage cheese type discharged. Has been on recent atb. Pharmacy confirmed. Thank you * Telephone Encounter - Irina Perrin OSA - 08/10/2024 2:40 PM EST Would like something called in for her yeast infection Please call when completed documented in this encounter Plan of Treatment Upcoming Encounters Date Type Department Care Team (Late st Contact Info) Description 09/12/2024 11:00 AM EST Office Visit Nephrology, [facility] [place] [address] [place] [address] Erik Lenz MD [address] [facility] [place] [address] 09/13/2024 9:20 AM EST Office Visit Family Practice [address] [facility] [address] [place] [id number] Galdino Andujar, [address] [place] [address] 09/13/2024 10:00 AM EST Office Visit Family Practice [facility] [address] [place] [address] College, Pharmacist [address] [address] 01/15/2025 1:30 PM EDT Office Visit Cardiology, [facility] [address] [place] [address] Marjorie [address], EVIN [address] [facility] [place] [address] 02/19/2025 1:00 PM EDT Nurse Only Family Practice [address], [place] [address] [place] [address] Shira De La Rosa, RN [address] [place] [address] 06/13/2025 1:30 PM EDT Imaging [facility] [address] [facility], [place] [address] [facility] [place] [address] Scheduled Procedures Name Priority Associated Diagnoses Date/Ti [...] Additional history exists CKD PHOS USE SMARTSET 74025 12/26/2024 04/0 10/2023, 02/11/2023, 01/07/2022, Additional history exists Adult Wellness Visit 02/13/2025 02/14/2024, 08/05/20 22 Mammogram 06/12/2025 06/12/2024, 05/27, 04/21/2023, Additional history exists CKD HGB USE SMARTSET 27541 06/26/202506/26, 06/26/2024, 05/18/2024, Additional history exists Diabetic [...] discussion- Primary Other specified counseling Atherosclerosis of [place] coronary artery of [place] heart without angina pectoris Carotid artery stenosis, [...] discussion- Primary Other specified counseling Atherosclerosis of [place] coronary artery of [place] heart without angina pectoris Earp filter in place Other postprocedural status Hypertensive [...] with long-term current use of insulin (HCC) Yeast vaginitis- Primary Candidiasis of vulva and vagina Screening mammogram for breast cancer documented in this encounter Advance Directives Documents on File Type Date Recorded Patient Heel Shaver Expl anation POLST 03/19/2020 4:25 PM POLST [...] (no specific identity) Health Care Power of Transportation Operations Manager Princess Allen Other - (no specific identity) Health Care Power of Transportation Operations Manager Care Teams Vice President Biostatistics Relationship Specialty Start Date End Date Galdino Andujar DO [address] [place] [address] PCP - General Internal Medicine 03/08/24 documented as of this encounter
--- OUTSIDE RECORDS SUMMARY | 2024-12-09 19:30 | External Medical Summary | Summary of Care ---
Author Name Unknown Organization [facility] Address [address] [place] [address] Phone [phone] Care Team Providers Care Bridge Crane Operator Name Role Phone Galdino Andujar DO Primary Care Provider [phone] Reason for Referral * Evaluate & Treat - Unlimited Visits (Within 10 days (routine)) - Authorized Specialty Diagnoses / Procedures Referred By Contac t Referred To Contact Pulmonary Diseases / Pulmonary Diagnoses Chronic hypoxemic respiratory failure (HCC) ILD (interstitial lung disease) (HCC) Galdino Andujar DO [address] [place] [address] Phone: tel: fax: Referral ID Status Reason Start Date Expiration Date Visits Requested Visits Authorized [id number] Authorized Specialty Services Required [phone] Question Answer Referral Priority Within 10 days (routine) Where should this appointment be scheduled? ising Primary Reason for Referral? Asthma/COPD Reason for Visit * Reason Comments Follow Up Pt here for 1 m foll ow up - States that she is in a lot of pain. Tramadol and tylenol is not helping. Encounter Details Date Type Department Care Team (Latest Contact Info) Description 09/17/2024 1:40 PM EST Office Visit Family Practice [address] [facility], [place] [address] [place] [phone] Galdino Andujar DO [address] [place] [address] 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 3b chronic kidney disease ([facility]; Type 2 diabetes mellitus with stage 3b chronic kidney disease, with long-term current use of insulin ([facility]); Chronic hypoxemic respiratory failure ([facility]); ILD (interstitial lung disease) ([facility]); Moderate episode of recurrent major depressive disorder ([facility]); Dyslipidemia; Postsurgical hypothyroidism; ELISSA (obstructive sleep apnea); Atherosclerosis of [place] coronary artery of [place] heart without angina pectoris; Fibromyalgia; Abnormality of gait; Gastroesophageal reflux disease with esophagitis without hemorrhage; Restless legs syndrome; Hyperparathyroidism, secondary renal ([facility]); Recurrent deep vein thrombosis (DVT) of both lower extremities ([facility]); Spinal stenosis of lumbar region without neurogenic claudication; Sherman filter in place; Heparin induced thrombocytopenia (HIT) ([facility]); Primary osteoarthritis of both knees; Lumbar radiculopathy; Anxiety state; Iron deficiency; Hydronephrosis of right kidney; Vertigo Allergies Active Allergy Reactions Criticality Noted Date [...] as of this encounter (statuses as of 09/17/2024) Medications ONETOUCH DELICA LANCETS 33G MISC Check [...] Dexcom G7 Sensor Use as directed. (From [facility]) 06/01/20 23 Active BD Pen Needle Short U/F 31G [...] before bedtime. 84 Tablet 08/24/20 24 Active Furosemide 40 MG Oral Tablet [...] morning. 30 Tablet 5 09/17/20 24 Active Atorvastatin Calcium 20 MG Oral Tablet (Lipitor) Take 1 Tablet by mouth in the morning. Prescribed by Carmen Waggoner PA-C. 024 Discontin ued(Adver se reaction) Furosemide 40 MG Oral Tablet (Lasix)Indications :Chronic [...] Tablet 07/31/20 24 024 Discontin ued(Refil l) documented as of this encounter (statuses as of 09/17/2024) Active Problems Problem Noted Date Diagnosed Date [...] vascular, reports upcoming carotid surgery at [facility]. She states she has rx for atorvastatin and plavix to [facility] at pharmacy. 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 Atherosclerosis of [place] co ronary artery without angina pectoris 12/31/2021 [...] 8:05 AM EDT): Home PT to start Sherman filter in place 08/19/2014 History of pulmonary [...] rx evidently given by vascular, has to [facility] rx documented as of this encounter (statuses as of 09/17/2024) Resolved Problems Problem Noted Date Diagnosed Date [...] as of this encounter (statuses as of 09/17/2024) Immunizations Name Administration Dates Next Due COVID-19 mRNA, LNP-s, No Pre serve, 2-Dose Series ([employer]) 01/08/2021,12/18/2020 COVID-19, LNP-s, No Preserve , Navarro-sucrose, Ages 12+ (Pfizer) 2022,10/01/2021 COVID-19, MRNA-LNP, PF, 30 M CG/0.3 mL, 12 YRS AND ABOVE, IM (PFIZER-Comirnaty) 07/31/2024,07/26/2023 Pneumococcal Conjugate Vacci ne, 20-valent ([id number]) 03/12/2022 Pneumococcal Polysaccharide PPV23 (Pneumovax) 08/22/2009,06/15/2006 RSV [...] Answer Date Recorded PHQ Adult Total Score 09/07/2024 Hunger Vital Sign Answer Date Recorded [...] No 02/14/2024 Does the household have a [facility] source [facility] income? (Household - for ages [...] Sign Reading Time Taken Comments Blood Pressure 116/66 09/17/2024 1:43 PM EST Pulse 82 09/17/2024 1:43 PM EST Temperature 35.9 C (96.6 F) 09/17/2024 1:43 PM ES T Respiratory Rate 16 09/17/2024 1:43 PM EST Oxygen Saturation 97% 09/17/2024 1:43 PM EST Inhaled Oxygen Concentration - - Weight 120.8 kg (266 lb 4.8 oz) 09/17/2024 1:43 PM EST Height 161.9 cm (5' 3.75") 09/17/2024 1:43 PM ES T Body Mass Index 46.07 09/17/2024 1:43 PM EST documented in this encounter Progress Notes * Galdino Andujar, DO - 09/17/2024 2:41 PM EST SUBJECTIVE: Stephanie Camp is a 69 year old female. Chief Complaint Patient presents with Follow Up Pt here for 1 m follow up - States that she is in a lot of pain. Tramadol and tylenol is not helping. HPI: Patient is a 69 year old female with a history of DM type II, CKD stage III, Diastolic CHF, right Hydronephrosis, right Transcarotid Artery Revascularization in 08/2023, Chronic Hypoxic Respiratory Failure, HTN, Recurrent DVT, IVC Filter, Hyperlipidemia, GERD, Lumbar Disc Disease, Restless Leg Syndrome, Sleep Apnea on CPAP, HIT, and Ambulatory Dysfunction that is seen for follow up. The patient mcfadden s worsening pain in back , neck and multiple joints for a few weeks. She has not been taking tramadol regularly. Muscle stiffness is present at all times and is unchanged. Weight continues to decrease and appetite is fair. Leg cramps have stopped since stopping Atorvastatin. She has increased oxygen to 4 L due to shortness of breath. Patient Active Problem List Diagnosis Dyslipidemia Postsurgical hypothyroidism ELISSA (obstructive sleep apnea) Venous insufficiency Essential hypertension with goal blood pressure less than 140/90 History of pulmonary embolus (PE) Sherman filter in place Fibromyalgia Abnormality of gait Restless legs syndrome Gastroesophageal reflux disease with esophagitis Controlled substance agreement signed Chronic heart failure with preserved ejection fraction (HCC) Lumbar radiculopathy 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 3b chronic kidney disease (HCC) Hyperparathyroidism, secondary renal (HCC) Vasculitis (HCC) Spinal stenosis of lumbar region without neurogenic claudication 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) Atherosclerosis of [place] coronary artery without angina pectoris Carotid artery [...] insulin ([facility]) Anxiety state Sacroiliitis, not elsewhere classified ([facility]) DM peripheral angiopathy ([facility]) Morbid (severe) obesity due to excess calories ([facility]) Iron deficiency Hydronephrosis of right kidney History of infection with vancomycin resistant Enterococcus (VRE) Body mass index (BMI) of 45.0 to 49.9 in adult ([facility]) Current Outpatient Medications Medication Sig Dispense Refill Furosemide 40 MG Oral Tablet (Lasix) Take 1.5 Tablets by mouth in the morning and 1.5 Tablets before bedtime. Morning and noon. 30 Tablet 2 traMADol HCl 50 MG Oral Tablet (Ultram) Take 1 Tablet by mouth every 8 hours as needed for Pain, Severe. 90 Tablet 0 Rosuvastatin Calcium 5 MG Oral Tablet (Crestor) Take 1 Tablet by mouth in the morning. 30 Tablet 5 ONETOUCH DELOpendisc LANCETS 33G MISC Check blood sugars 3-4 [...] Dexcom G7 Sensor Use as directed. (From [facility]) BD Pen Needle Short U/F 31G X 8 MM (Insulin Pen Needle) use five times daily 500 Each 3 Plavix 75 MG Oral Tablet Take 1 Tablet by mouth in the morning. Aspirin 81 MG Oral Tablet Delayed Release Take 1 Tablet by mouth in the morning. Apixaban 2.5 MG Oral Tablet (Eliquis) Take 1 Tablet by mouth in the morning and 1 Tablet before bedtime. 60 Tablet 11 Ferrous Sulfate 325 (65 Fe) MG Oral Tablet (Feosol) Take 1 Tablet by mouth in the morning and 1 Tablet before bedtime. [employer] Verio In Vitro Strip (Glucose Blood) Use up to 4 times a day E11.9 in case of dexcom failure 100 Strip 11 Senna-Time S 8.6-50 MG Oral Tablet (senna-docusate) TAKE 1 TABLET BY MOUTH IN THE MORNING AND AT BEDTIME 60 Tablet 5 Potassium Chloride Ayleen ER 20 MEQ Oral Tablet Extended Release TAKE 1 TABLET BY MOUTH IN THE MORNING AND AT BEDTIME 60 Tablet 5 DULoxetine HCl 60 MG Oral Capsule Delayed Release Particles (Cymbalta) TAKE 1 CAPSULE BY MOUTH ONCEDAILY IN THE MORNING 30 Capsule 5 Omeprazole 20 MG Oral Capsule Delayed Release (PriLOSEC) TAKE 1 CAPSULE BY MOUTH ONCE DAILY IN THE MORNING 30 Capsule 5 traZODone HCl 50 MG Oral Tablet (Desyrel) Take 1 Tablet by mouth at bedtime. 30 Tablet 5 Cholecalciferol 25 MCG (1000 UT) [...] TABLET BY MOUTH ONCE DAILY IN THE [id number] Tablet 1 Meclizine HCl 12.5 MG Oral [...] MORNING AND AT BEDTIME 60 Tablet 5 clonazePAM 0.5 MG Oral Tablet (KlonoPIN) Take 1 Tablet by mouth in the morning and 1 Tablet at noonand 1 Tablet before bedtime. 84 Tablet 0 No current facility-administered medications for this visit. The patient's medication list was reviewed and updated as needed. Past Medical History: Diagnosis Date ELSIE (acute kidney injury) ([facility]) 06/12/2018 Allergic rhinitis due to other allergen Chronic hypoxemic respiratory failure ([facility]) 01/07/2022 Diverticulosis of colon 01/28/2006 Essential hypertension with goal blood pressure less than 140/90 02/22/2014 ELLIE (generalized anxiety disorder) 09/13/2009 Go[address] filter in place 08/19/2014 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[facility]) 08/22/2009 History of pulmonary embolus (PE) 07/16/2014 HTN, goal below 140/90 Hydronephrosis Impetigo 09/27/2018 Obesity, BMI not known Perforation of intestine ([facility]) 1996 COLON -- 1996 Pneumonia in aspergillosis(484.6) 09/14/2009 Recurrent deep vein thrombosis (DVT) of both lower extremities ([facility]) 01/07/2022 Sleep apnea, obstructive Spinal stenosis of lumbar region without neurogenic claudication 07/15/2020 Spontaneous pneumothorax 09/14/2009 Statin intolerance 07/16/2014 Type 2 diabetes mellitus with hemoglobin A1c goal of less than 8.0% ([facility]) 01/07/2022 Past Surgical History: Procedure Laterality Date ARTHROPLASTY KNEE TOTAL Right 07/24/2014 R COLONOSCOPY, DIAGNOSTIC (RECTUM) 02/18/2016 normal, repeat 10 yrs/[facility] COLONOSCOPY, GI REFERRAL OP 01/28/2006 diverticulosis--repeat 10 years INCISION OF [place], PLANNED 06/03/2011 TRACHEOSTOMY PLANNED performed by DANNY HOLDER at OR [facility] INJECT DX/THER SUBSTANCE INTERLAMINAR LUMBAR/SACRAL W IMAGE GUIDE 05/26/2020 INJECTION SPINE LUMBAR OR SACRAL performed by Raj Ahn, DO at OR [facility] INJECT DX/THER SUBSTANCE INTERLAMINAR LUMBAR/SACRAL W IMAGE GUIDE 05/14/2021 INJECTION SPINE LUMBAR OR SACRAL performed by Raj Ahn, DO at OR [facility] INJECT DX/THER SUBSTANCE INTERLAMINAR LUMBAR/SACRAL W IMAGE GUIDE 08/13/2021 INJECTION SPINE LUMBAR OR SACRAL performed by Raj Ahn, DO at OR [facility] KNEE ARTHROSCOPY/DEBRIDEMENT 07/27/[address] PERMANENT GASTROSTOMY TUBE 09/06/2009 GASTROSTOMY WITH CONSTUCTION GASTRIC TUBE performed by AMADOU NUNEZ at [facility] REMOVAL OF THYROID GLAND 06/15/2011 THYROIDECTOMY INCLUDING SUBSTERNAL THYROID CERVICAL APPROACH performed by DANNY HOLDER at [facility] REMOVE GALLBLADDER 09/06/2009 CHOLECYSTECTOMY performed by AMADOU NUNEZ at [facility] REPAIR RECURRENT INCISIONAL HERNIA 09/26/1998 REVISION OF COLOSTOMY, SIMPLE 09/26/1997 SACROILIAC JOINT INJECT W/GUIDANCE 07/28/2020 INJECTION SACROILIAC JOINT performed by Raj Ahn DO at [facility] SACROILIAC JOINT INJECT W/GUIDANCE 03/03/2022 INJECTION SACROILIAC JOINT performed by Raj Ahn DO at OR [facility] SACROILIAC JOINT INJECT W/GUIDANCE 05/04/2023 INJECTION SACROILIAC JOINT performed by Raj Ahn DO at OR [facility] SUTURE, LARGE INTESTINE W/COLOSTOMY 09/26/1996 perforation R colon with colostomy TRANSCATH STENT-CAROTID ARTERY, W/EMBOL PROTECTION Right 09/06/2023 Dr. Tang VENA CAVA FILTER/LIGATION/CLIP 08/19/2009 Sherman filter placement through the right femoral 08/19/[address] Lerma at [facility] Review of patient's allergies indicates: Allergen Reactions [...] diarrhea, nausea and vomiting. Genitourinary: Positive for frequency. Negative for dysuria and hematuria. Musculoskeletal: Positive for arthralgias, back pain, gait problem and myalgias. Neurological: Negative for dizziness, syncope and headaches. Psychiatric/Behavioral: Positive for decreased concentration, dysphoric mood and sleep disturbance.Negative for self-injury and suicidal ideas. The patient is not nervous/anxious. OBJECTIVE: BP 116/66 (BP Site: Left Arm, BP Position: Sitting, BP Cuff Size: Large) | Pulse 82 | Temp 96.6 F(35.9 C) | Resp 16 | Ht 5' 3.75" (1.619 m) | Wt 266 lb 4.8 oz (120.8 kg) | LMP 03/11/2003 | SpO2 97% | BMI 46.07 kg/m | BSA 2.33 m Physical Exam [...] abnormal. Psychiatric: Mood and Affect: Mood is anxious and depressed. PLAN AND ASSESSMENT: 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 3b chronic kidney disease (HCC) (Primary) - Renew Furosemide 40 MG Oral Tablet (Lasix); Take 1.5 Tablets by mouth in the morning and 1.5 Tablets before bedtime. Morning and noon. - COMPREHENSIVE METABOLIC PANEL - CBC WITH WBC DIFFERENTIAL Type 2 diabetes mellitus with stage 3b chronic kidney disease, with long-term current use of insulin ([facility]) Continue Mounjaro, and Tresiba Worsening renal function Avoid Metformin Chronic hypoxemic respiratory failure ([facility]) - PULMONARY REFERRAL OP Continue oxygen at 4 L ILD (interstitial lung disease) ([facility]) - PULMONARY REFERRAL OP Moderate episode of recurrent major depressive disorder ([facility]) Continue Duloxetine Dyslipidemia - Start Rosuvastatin Calcium 5 MG Oral Tablet (Crestor); Take 1 Tablet by mouth in the morning. Did not tolerate Atorvastatin due to muscle cramps Postsurgical hypothyroidism Continue Levothyroxine ELISSA (obstructive sleep apnea) Atherosclerosis of [place] coronary artery of [place] heart without angina pectoris Fibromyalgia Abnormality of gait Gastroesophageal reflux disease with esophagitis without hemorrhage Continue Omeprazole Restless legs syndrome Continue Clonazepam, and Gabapentin Hyperparathyroidism, secondary renal (HCC) Recurrent deep vein thrombosis (DVT) of both lower extremities (HCC) Continue Apixaban Spinal stenosis of lumbar region without neurogenic claudication Continue Tramadol, Gabapentin, and Duloxetine Frank filter in place 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) Primary osteoarthritis of both knees - traMADol HCl 50 MG Oral Tablet (Ultram); Take 1 Tablet by mouth every 8 hours as needed for Pain,Severe. Lumbar radiculopathy - traMADol HCl 50 MG Oral Tablet (Ultram); Take 1 Tablet by mouth every 8 hours as needed for Pain,Severe. Anxiety state Continue Clonazepam Iron deficiency Hydronephrosis of right kidney Vertigo - CBC WITH WBC DIFFERENTIAL I spent a total of 40-54 minutes (exact time 45 mins) on the date of service in preparation, delivery, and documentation of the care provided to Stephanie Camp excluding any time spent in the performance of separately billed services or time spent by another provider/QHP. Follow Up: Return in about 1 month (around 10/18/2024), or if symptoms worsen or fail to improve. Galdino Andujar DO 2:41 PM 09/17/2024 documented in this encounter Plan of Treatment Upcoming Encounters Date Type Department Care Team (Late st Contact Info) Description 10/11/2024 7:40 AM EST Office Visit Pulmonary Medicine, [facility] [address] [facility] [place] [address] Jhonny Holley MD [address] [place] [id number] 10/22/2024 1:40 PM EST Office Visit Family Practice [address] [place] [address] [address] [facility], [place] [phone] Galdino Andujar DO [address] [facility], [place] [address] 02/19/2025 1:00 PM EDT Nurse Only Family Practice [address], [place] [address] [place], [place] [phone] Shira De La Rosa, RN [address] [facility], [place] [phone] 06/13/2025 1:30 PM EDT Imaging Radiology [facility] [address] [facility] [place] [address] [facility] [place] [address] Pending Results Name Type Priority Associated Diagnoses Date /Time COMPREHENSIVE METABOLIC PANEL Lab Routine 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 3b chronic kidney disease (HCC) 09/17/2024 2:20 PM EST CBC WITH WBC DIFFERENTIAL Lab Routine Vertigo 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 3b chronic kidney disease (HCC) 09/17/2024 2:20 PM EST CBC Lab Routine Vertigo 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 3b chronic kidney disease (HCC) 09/17/2024 2:20 PM EST DIFFERENTIAL, AUTOMATED Lab Routine Vertigo 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 3b chronic kidney disease (HCC) 09/17/2024 2:20 PM EST Scheduled Procedures Name Priority Associated Diagnoses Date/Ti me COLONOSCOPY FLEXIBLE PROXIMAL DIAGNOSTIC Recall Colon cancer screening Scheduled Referrals Name Type Priority Associated Diagnoses Orde r Schedule PULMONARY REFERRAL OP Referral Within 10 days (routine) Chronic hypoxemic respiratory failure (HCC) ILD (interstitial lung disease) (HCC) Ordered: 09/17/2024 Health Maintenance Due Date Last Done Comments [...] Additional history exists CKD PHOS USE SMARTSET 32110 12/26/2024 040 10/2023, 02/11/2023, 01/07/2022, Additional history exists Adult Wellness Visit 02/13/2025 02/14/2024, 08/05/20 22 Mammogram 06/12/2025 06/12/2024, 05/27, 04/21/2023, Additional history exists CKD HGB USE SMARTSET 74785 06/26/202506/26, 06/26/2024, 05/18/2024, Additional history exists Diabetic Eye Exam 07/06/2025 07/06/2024, , 07/06/2024, Additional history exists Depression Monitoring 09/07/2025 09/07/2024, 024 Colonoscopy 02/17/2026 02/18/2016, 01/25, 01/28/2006, Additional [...] stage 3 ([facility])- Primary Fibromyalgia Mylagia and myositis, unspecified Primary osteoarthritis of both knees Primary localized osteoarthrosis, lower leg Anxiety state Anxiety state, unspecified Recurrent deep vein thrombosis (DVT) of both lower extremities ([facility]) Chronic hypoxemic respiratory failure (HCC) Chronic respiratory failure 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 3b chronic kidney disease, with long-term current use of insulin ([facility]) Restless legs syndrome Restless legs syndrome (RLS) ELLIE (generalized anxiety disorder) Generalized anxiety disorder Mild episode of recurrent major depressive disorder ([facility]) Advanced care planning/counseling discussion Other specified counseling ILD (interstitial lung disease) ([facility])- Primary Postinflammatory pulmonary fibrosis Fibromyalgia Mylagia and myositis, unspecified Moderate episode of recurrent major depressive disorder ([facility]) Primary osteoarthritis of both knees Primary localized osteoarthrosis, lower leg Chronic hypoxemic respiratory failure (HCC) Chronic respiratory failure 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 3b chronic kidney disease ([facility]) Advanced care planning/counseling discussion- Primary Other specified counseling Atherosclerosis of [place] coronary artery of [place] heart without angina pectoris Carotid artery stenosis, asymptomatic, right Essential hypertension with goal blood pressure less than 140/[address] Other postprocedural status 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 3b chronic kidney disease ([facility]) Recurrent deep vein thrombosis (DVT) of both lower extremities (HCC) Chronic hypoxemic respiratory failure (HCC) Chronic respiratory failure ELISSA (obstructive sleep apnea) Obstructive sleep apnea (adult) (pediatric) Type 2 diabetes mellitus with hemoglobin A1c goal of less than 8.0% ([facility]) Fibromyalgia Mylagia and myositis, unspecified Restless legs syndrome Restless legs syndrome (RLS) Chronic kidney disease, stage 3b ([facility]) History of pulmonary embolus (PE) Personal history of pulmonary embolism Moderate episode of recurrent major depressive disorder ([facility]) Advanced care planning/counseling discussion- Primary Other specified counseling Atherosclerosis of [place] coronary artery of [place] heart without angina pectoris Frank filter in place Other postprocedural status 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 3b chronic kidney disease (HCC) Recurrent deep vein thrombosis (DVT) of both lower extremities (HCC) Chronic hypoxemic respiratory failure (HCC) Chronic respiratory failure Gastroesophageal reflux disease with esophagitis without hemorrhage Sacroiliitis, not elsewhere classified ([facility]) Sacroiliitis, not elsewhere classified Postsurgical hypothyroidism Type [...] 7.0%-8.0% ([facility]) Hypertensive heart and kidney disease with chronic [...] Other and unspecified hyperlipidemia DM peripheral angiopathy ([facility]) Type II or unspecified type diabetes [...] Chronic respiratory failure ILD (interstitial lung disease) ([facility]) Postinflammatory pulmonary fibrosis Moderate episode of recurrent major depressive disorder (HCC) Dyslipidemia Other and unspecified hyperlipidemia Postsurgical hypothyroidism ELISSA (obstructive sleep apnea) Obstructive sleep apnea (adult) (pediatric) Atherosclerosis of [place] coronary artery of [place] heart without angina pectoris Fibromyalgia Mylagia and myositis, unspecified Abnormality of gait Gastroesophageal reflux disease with esophagitis without hemorrhage Restless legs syndrome Restless legs syndrome (RLS) Hyperparathyroidism, secondary renal (HCC) Secondary hyperparathyroidism (of renal origin) Recurrent deep vein thrombosis (DVT) of both lower extremities (HCC) Spinal stenosis of lumbar region without neurogenic claudication Spinal stenosis, lumbar region, without neurogenic claudication Frank filter in place Other postprocedural status 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) 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HIT) Primary osteoarthritis of both knees Primary localized osteoarthrosis, lower leg Lumbar radiculopathy Thoracic or lumbosacral neuritis or radiculitis, unspecified Anxiety state Anxiety state, unspecified Iron deficiency Iron deficiency anemia, unspecified Hydronephrosis of right kidney Hydronephrosis Vertigo Dizziness and giddiness Screening mammogram for breast cancer documented in this encounter Advance Directives Documents on File Type Date Recorded 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
--- OUTSIDE RECORDS SUMMARY | 2024-12-09 19:31 | External Medical Summary | Summary of Care ---
Author Name Unknown Organization [facility] Address [address] [place] [address] Phone [phone] Care Team Providers Care Highway Truck Driver Name Role Phone Galdino Andujar DO Primary Care Provider [phone] Reason for Visit * Reason Comments Dosage Adjustment In Person (Anticoag Cl inic) Diabetes Follow-Up Encounter Details Date Type Department Care Team (Late st Contact Info) Description 07/31/2024 3:00 PM EST Office Visit Family Practice [address] [facility] [address] [place] [address] [place], Pharmacist [address] [address] Type 2 diabetes mellitus with stage 3b [...] as of this encounter (statuses as of 07/31/2024) Medications Medication Sig Dispensed Refills Start Date End Date Status VALENTINATOGRABIEL BISWAS LANCETS 33G [facility] Check blood sugars 3-4 times daily 180 Each 5 08/01/2018 Active oxygen GASIndications:ELISSA (obstructive sleep apnea) Use 3 L/min(Oxygen) as directed continuous. 11/28/2019 Active CPAP every night at bedtime. Active Acetaminophen 500 MG Oral Tablet (Tylenol) Take 2 Tablets by mouth in the morning and 2 Tablets at noon and 2 Tablets before bedtime. 100 Tablet 03/18/2023 Active DIURETIC TITRATION PLAN If no improvement on day 3, contact heart failure managing provider. 1 Each 03/18/2023 Active NovoLOG FlexPen 100 UNIT/ML Subcutaneous Solution Pen-injector (insulin aspart)Indications:T ype 2 diabetes mellitus with hemoglobin A1c goal of 7.0%-8.0% ([facility]) Inject 8 units with breakfast and 8units lunch and 10 units with dinner + sliding scale 1 units for every 25 units BG > 150. 150 mL 3 05/16/2023 Active Dexcom G7 Sensor Use as directed. (From [facility]) 06/01/2023 Active BD Pen Needle Short U/F 31G X 8 MM (Insulin Pen Needle) use five times daily 500 Each 3 07/20/2023 Active Plavix 75 MG Oral Tablet Take 1 Tablet by mouth in the morning. 07/11/2023 Active Aspirin 81 MG Oral Tablet Delayed Release Take 1 Tablet by mouth in the morning. Active Tresiba FlexTouch 100 UNIT/ML Subcutaneous Solution Pen-injector (Insulin Degludec)Indications :Type 2 diabetes mellitus with hemoglobin A1c goal of 7.0%-8.0% ([facility]) INJECT 50 UNITS UNDER THE SKIN IN THE EVENING 60 mL 3 08/04/2023 Active Additional Information Patient taking differently: 41 Units Subcutaneous DAILY(1900), Per [facility] pharmacist, Reported on 06/29/2024 Atorvastatin Calcium 20 MG Oral Tablet (Lipitor) Take 1 Tablet by mouth in the morning. Prescribed by Carmen Waggoner PA-C. Active Triamcinolone Acetonide 0.5 % External Cream (Aristocort)Indicati ons:Dermatitis Apply topically to affected area 2 times a day. Chest rash 60 g 10/04/2023 Active Apixaban 2.5 MG Oral Tablet (Eliquis) Take 1 Tablet by mouth in the morning and 1 Tablet before bedtime. 60 Tablet 10/04/2023 Active Ferrous Sulfate 325 (65 Fe) MG Oral Tablet (Feosol)Indications: Anemia Take 1 Tablet by mouth in the morning and 1 Tablet before bedtime. 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, NYHA class 1 and CKD stage 3 (HCC),Chronic diastolic congestive heart failure (HCC) TAKE 1 TABLET BY MOUTH IN THE MORNING AND AT BEDTIME 60 Tablet 02/22/2024 Active rOPINIRole HCl 2 MG Oral Tablet (Requip)Indications: Restless legs syndrome TAKE 1 TABLET BY MOUTH AT BEDTIME 30 Tablet 02/22/2024 Active Senna-Time S 8.6-50 MG Oral Tablet (senna-docusate) TAKE 1 TABLET BY MOUTH IN THE MORNING AND AT BEDTIME 60 Tablet 03/22/2024 Active Potassium Chloride Ayleen ER 20 MEQ Oral Tablet Extended ReleaseIndications: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, NYHA class 1 and CKD stage 3 (HCC),Chronic diastolic congestive heart failure (HCC) TAKE 1 TABLET BY MOUTH IN THE MORNING AND AT BEDTIME 60 Tablet 04/18/2024 Active DULoxetine HCl 60 MG Oral Capsule Delayed Release Particles (Cymbalta)Indication s:Fibromyalgia,Major depressive disorder, recurrent, moderate (HCC) TAKE 1 CAPSULE BY MOUTH ONCE DAILY IN THE MORNING 30 Capsule 04/18/2024 Active Omeprazole 20 MG Oral Capsule Delayed Release (PriLOSEC)Indication s:Gastroesophageal reflux disease with esophagitis without hemorrhage TAKE 1 CAPSULE BY MOUTH ONCE DAILY IN THE MORNING 30 Capsule 04/18/2024 Active Furosemide 40 MG Oral Tablet (Lasix)Indications:C hronic diastolic congestive heart failure (HCC) Take 1.5 Tablets by mouth 2 times a day. 84 Tablet 05/17/2024 Active traZODone HCl 50 MG Oral Tablet (Desyrel) Take 1 Tablet by mouth at bedtime. 30 Tablet 05/24/2024 Active Cholecalciferol 25 MCG (1000 UT) Oral Capsule Take 1 capsule by mouth once daily in the morning 30 Capsule 5 06/12/2024 Active Dicyclomine HCl 20 MG Oral Tablet (Bentyl)Indications: Irritable bowel syndrome, unspecified type Take 1 Tablet by mouth 4 times a day as needed for Cramping. 180 Tablet 3 06/19/2024 Active Mounjaro 7.5 MG/0.5ML Subcutaneous Solution Pen-injector (Tirzepatide)Indicat ions:Type 2 diabetes mellitus with stage 3b chronic kidney disease, with long-term current use of insulin (HCC) Inject 7.5 mg under the skin once a week. 2 mL 11 06/26/2024 Active Ondansetron HCl 4 MG Oral Tablet (Zofran)Indications: Dizziness and giddiness Take 1 Tablet (4 mg) by mouth every 6 hours as needed for Nausea. 90 Tablet 6 07/04/2024 Active clonazePAM 0.5 MG Oral Tablet (KlonoPIN)Indication s:Restless legs syndrome,Anxiety state TAKE 1 TABLET BY MOUTH THREE TIMES A DAY 84 Tablet 07/30/2024 Active Levothyroxine Sodium 200 MCG Oral Tablet (Levoxyl)Indications :Postsurgical hypothyroidism TAKE 1 TABLET BY MOUTH ONCE DAILY IN THE MORNING 90 Tablet 1 07/29/2024 Active documented as of this encounter (statuses as of 07/31/2024) Active Problems Problem Noted Date Diagnosed Date [...] calories 0 10/04/2023 DM peripheral angiopathy 07/13/2023 Last Assessment & Plan: Now followed by vascular, reports upcoming carotid surgery at [facility]. She states she has rx for atorvastatin [...] long-term current use of medicatio n 01/07/2022 Overview: Dr Andujar ICD-10 update of inactive term [...] use oxycodone for severe pain. Continues duloxetine. 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/2019 Vasculitis 11/07/2019 Hypertensive [...] Assessment & Plan: Home PT to start [place] filter in place 08/19/2014 History of pulmonary [...] as of this encounter (statuses as of 07/31/2024) Resolved Problems Problem Noted Date Diagnosed Date [...] as of this encounter (statuses as of 07/31/2024) Immunizations Name Administration Dates Next Due COVID-19 mRNA, LNP-s, No Pre serve, 2-Dose Series (UsTrendy) 01/08/2021,12/18/2020 COVID-19, LNP-s, No Preserve , Navarro-sucrose, Ages 12+ (Pfizer) 2022,10/01/2021 COVID-19, MRNA-LNP, PF, 30 M CG/0.3 mL, 12 YRS AND ABOVE, IM ([facility]ZER-[facility]) 07/31/2024,07/26/2023 Pneumococcal Conjugate Vacci ne, 20-valent ([id number]) 03/12/2022 Pneumococcal Polysaccharide PPV23 (Pneumovax) 08/22/2009,06/15/2006 RSV [...] ages 0-17 years) Not on file 02/14/2024 Sex and Gender Information Value Date Recorded Sex Assigned at Female 11/07/2019 2:21 PM EST Gender Identity Female 11/07/2019 2:21 PM EST Sexual Orientation Not on file Job Start Date Occupation Industry Not on file Not on file Not on file documented as of this encounter Progress Notes * Brookecesar Ad, Frances Valle, formerly [facility] - 07/31/2024 2:42 PM EST Images from the original note [...] meals Increase Tresiba 41 units at bedtime - patient decreased to 39 units due to lows Increase Mounjaro 7.5mg weekly Medication Injection Site: Abdomen Lifestyle: Diet: unchanged Glucose Review/SMBG: Readings obtained from patient device Hypoglycemia: Does your blood sugar go below 70 mg/dL? Yes, overnight prior to decreasing insulin and also sometimes in the afternoon Hyperglycemia symptoms present: none Recent Labs Units 06/26/24 1430 03/26/24 1115 12/22/23 1139 HEMOGLOBIN A1C - [facility] % 7.8* 8.6* 7.2* Recent Labs Units 06/26/24 1430 05/18/24 1604 02/02/24 1037 ESTIMATED GLOMERULAR FILTRATION RATE - [facility] mL/min 29* 31* 39* CREATININE - [facility] mg/dL 1.8* 1.8* 1.5* HYPERTENSION: Patient on ACEi/ARB: no, not indicated BP Readings from Last 3 Encounters: 07/31/24 114/56 07/17/24 108/60 06/26/24 116/56 Blood pressure at goal: yes HYPERLIPIDEMIA: Recent Labs Units 11/07/23 1643 LDL CHOLESTEROL (CALCULATED) - [facility] mg/dL 60 Does patient have clinical ASCVD? Yes, is patient LDL less than 55 mg/dL? No: patient reported cramping on lipitor and therefore stopped it. Lipid panel to be done today. Will likely need to start ezetimibe. HEALTH MAINTENANCE REVIEW: Health Maintenance Due Topic Date Due Albumin/Creatinine Ratio 08/05/2024 ASSESSMENT & PLAN: ICD-10-CM 1. Type 2 diabetes mellitus with stage 3b chronic kidney disease, with long-term current use of insulin ([facility]) E11.22 N18.32 Z79.4 BG Readings - Blood sugars controlled. Patient having lows since increasing Mounjaro Medications - Reviewed current regimen, patient is adherent to regimen. Will decrease novolog and tresiba slight to combat lows. Will increase Mounjaro in a month. Patient also reports taking phenazopyridine daily for a while due to urinary urgency and pain. Reports it helps. Explained to patient that this is intended for treatment for 2-3 days in a row max andto stop. PCP ordered urinalysis. Diet, Exercise, Lifestyle - No significant lifestyle changes since last visit. Discussed with patient. Patient is agreeable to SMBG with Dexcom CGM. Patient aware to contact clinic if any hypoglycemia before next visit. MEDICATION CHANGES: yes, see below; preferred pharmacy: [facility] Diabetic Medications: Decrease Novolog - 8 units with breakfast, 6 units lunch and 10 units with supper + SS 1:30 >150before meals Decrease Tresiba 38 units at bedtime Mounjaro 7.5mg weekly HEALTH MAINTENANCE INTERVENTIONS: Labs: Up to Date - urine albu/creat today Immunizations: patient got COVID vaccine today Foot Exam: Up to Date Eye Exam: Up to Date Annual Wellness Visit: Up to Date FOLLOW UP: Return to clinic in 4 weeks 02/19/2025 I spent a total of 20-29 minutes (exact time 25 mins) on the date of service in preparation, delivery, and documentation of the care provided to Stephanie Camp excluding any time spent in the performance of separately billed services. Frances Huerta formerly [facility] Clinical Pharmacist - Store Consultant Medication Therapy [facility] 07/31/2024, 2:42 PM documented in this encounter Plan of Treatment Upcoming Encounters Date Type Department Care Team (Late st Contact Info) Description 09/12/2024 11:00 AM EST Office Visit Nephrology, [facility] [address] [place] [address] Erik Lenz MD [address] [facility] [place] [address] 01/15/2025 1:30 PM EDT Office Visit Cardiology, [facility] [address] [facility] [place] [address] Marjorie Powell, [place]-C [address] [facility] [place] [address] 02/19/2025 1:00 PM EDT Nurse Only Family Practice [address] [facility] [place] [address] [facility], [place] [address] Shira De La Rosa, LEXI [address] [facility], [place] [address] 06/13/2025 1:30 PM EDT Imaging [facility] [address] [facility] [place] [address] Scheduled Procedures Name Priority Associated Diagnoses Date/Ti [...] Additional history exists CKD PHOS USE SMARTSET 16952 12/26/2024 04/0 10/2023, 02/11/2023, 01/07/2022, Additional history exists Adult Wellness Visit 02/13/2025 02/14/2024, 08/05/20 Mammogram 06/12/2025 06/12/2024, 05/27, 04/21/2023, Additional history exists CKD HGB USE SMARTSET 63391 06/26/202506/26, 06/26/2024, 05/18/2024, Additional history exists Diabetic [...] on File Type Date Recorded 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
--- OUTSIDE RECORDS SUMMARY | 2024-12-09 19:31 | External Medical Summary ---
Author Name Unknown Address Unknown Organization : Laboratory Report Ordering Provider Test Date Status JAG SHULTZ 07/31/2024 15:39:00 Final Observation Date Value Abnormality Reference (Units ) Status Color of Urine by Auto 07/31/2024 15:39:00 Yellow Light Yellow, Yellow Final Clarity, Urine 07/31/2024 15:39:00 Clear Clear Final Glucose [Mass/volume] in Urine by Automated test strip 07/31/2024 15:39:00 Negative Negative (mg/dL) Final Bilirubin.total [Presence] in Urine by Automated test strip 07/31/2024 15:39:00 Negative Negative Final Ketones [Mass/volume] in Urine by Automated test strip 07/31/2024 15:39:00 Negative Negative (mg/dL) Final Specific gravity, Urine 07/31/2024 15:39:00 1.020 1.003-1.030 Final Hemoglobin [Presence] in Urine by Automated test strip 07/31/2024 15:39:00 Trace-intact Abnormal Negative Final pH, Urine 07/31/2024 15:39:00 6.0 5.0, 5.5, 6.0, 6.5, 7.0, 7.5 (units) Final Protein [Mass/volume] in Urine by Automated test strip 07/31/2024 15:39:00 Trace Abnormal Negative (mg/dL) Final Urobilinogen, Urine 07/31/2024 15:39:00 0.2 0.2, 1.0 (mg/dL) Final Nitrite [Presence] in Urine by Automated test strip 07/31/2024 15:39:00 Positive Abnormal Negative Final Leukocyte esterase [Presence] in Urine by Automated test strip 07/31/2024 15:39:00 Large Abnormal Negative Final Performing Location
--- OUTSIDE RECORDS SUMMARY | 2024-12-09 19:31 | External Medical Summary | Summary of Care ---
Author Name Unknown Organization [facility] Address [address] [place] [address] Phone [phone] Care Team Providers Care Edge Gluer Name Role Phone Galdino Andujar DO Primary Care Provider [phone] Reason for Visit * Reason Comments Follow Up Encounter Details Date Type Department Care Team (Latest Contact Info) Description 07/31/2024 2:20 PM EST Office Visit Family Practice [address] [facility] [address] [place] [address] Galdino Andujar DO [address] [place] [address] 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 3b chronic kidney disease (HCC)*; Lumbar radiculopathy; Vertigo; Type 2 diabetes mellitus with stage 3b chronic kidney disease, with long-term current use of insulin ([facility]); ILD (interstitial lung disease) ([facility]); Moderate episode of recurrent major depressive disorder ([facility]); Postsurgical hypothyroidism; ELISSA (obstructive sleep apnea); History of pulmonary embolus (PE); Restless legs syndrome; Gastroesophageal reflux disease with esophagitis without hemorrhage; Hyperparathyroidism, secondary renal (HCC); Spinal stenosis of lumbar region without neurogenic claudication; Atherosclerosis of tanana coronary artery of tanana heart without angina pectoris; Primary osteoarthritis of both knees; Fibromyalgia; Urinary frequency Allergies Active Allergy Reactions Criticality Noted Date [...] Refills Start Date End Date Status ONETOGRABIEL BISWAS LANCETS 33G MISC Check blood sugars [...] goal of 7.0%-8.0% ([facility]) Inject 8 units with breakfast and 8units lunch and 10 units with dinner + sliding scale 1 units for every 25 units BG > 150. 150 mL 3 05/16/2023 Active Dexcom G7 Sensor Use as directed. (From [facility]) 06/01/2023 Active BD Pen Needle Short U/F [...] taking differently: 41 Units Subcutaneous DAILY(1900), Per [facility] pharmacist, Reported on 06/29/2024 Atorvastatin Calcium 20 [...] before bedtime. 60 Tablet 11 10/04/2023 Active Ferrous Sulfate 325 (65 Fe) [...] 02/02/2024 Active Magnesium Oxide 400 MG Oral TabletIndications: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, NYHA class 1 and CKD stage 3 (HCC),Chronic diastolic congestive heart failure (HCC) TAKE 1 TABLET BY MOUTH IN THE MORNING AND AT BEDTIME 60 Tablet 02/22/2024 Active rOPINIRole HCl 2 MG Oral Tablet (Requip)Indications :Restless legs syndrome TAKE 1 TABLET BY MOUTH [...] DAILY IN THE MORNING 30 Capsule 5 04/18/2024 Active Furosemide 40 MG Oral Tablet (Lasix)Indications: Chronic diastolic congestive heart failure (HCC) Take 1.5 Tablets by mouth 2 times a day. 84 Tablet 5 05/17/2024 Active traZODone HCl 50 MG Oral Tablet (Desyrel) Take 1 Tablet by mouth at bedtime. 30 Tablet 5 05/24/2024 Active Cholecalciferol 25 MCG (1000 UT) Oral Capsule Take 1 capsule by mouth once daily in the morning 30 Capsule 5 06/12/2024 Active Dicyclomine HCl 20 MG Oral Tablet (Bentyl)Indications :Irritable bowel syndrome, unspecified type Take 1 Tablet by mouth 4 times a day as needed for Cramping. 180 Tablet 3 06/19/2024 Active Mounjaro 7.5 MG/0.5ML Subcutaneous Solution Pen-injector (Tirzepatide)Indica tions:Type 2 diabetes mellitus with stage 3b chronic kidney disease, with long-term current use of insulin ([facility]) Inject 7.5 mg under the skin once a week. 2 mL 11 06/26/2024 Active Ondansetron HCl 4 MG Oral Tablet (Zofran)Indications :Dizziness and giddiness Take 1 Tablet (4 mg) by mouth every 6 hours as needed for Nausea. 90 Tablet 6 07/04/2024 Active clonazePAM 0.5 MG Oral Tablet (KlonoPIN)Indicatio ns:Restless legs syndrome,Anxiety state TAKE 1 TABLET BY MOUTH THREE TIMES A DAY 84 Tablet 07/30/2024 Active Levothyroxine Sodium 200 MCG Oral Tablet (Levoxyl)Indication s:Postsurgical hypothyroidism TAKE 1 TABLET BY MOUTH ONCE DAILY IN THE MORNING 90 Tablet 1 07/29/2024 Active traMADol HCl 50 MG Oral Tablet (Ultram)Indications :Lumbar radiculopathy,Prima ry osteoarthritis of both knees Take 1 Tablet by mouth every 8 hours as needed for Pain, Severe. 90 Tablet 07/31/2024 Active Meclizine HCl 12.5 MG Oral Tablet (Antivert)Indicatio ns:Vertigo Take 1 Tablet by mouth 3 times a day as needed for Dizziness. 30 Tablet 1 07/31/2024 Active Gabapentin 300 MG Oral Capsule (Neurontin)Indicati ons:Lumbar radiculopathy,Fibro myalgia Take 1 Capsule by mouth in the morning and 1 Capsule before bedtime. 60 Capsule 5 07/31/2024 Active DULoxetine HCl 30 MG Oral Capsule Delayed Release Particles (Cymbalta)Indicatio ns:Fibromyalgia,Pete or depressive disorder, recurrent, moderate (HCC) Take 1 Capsule by mouth in the morning. 28 Capsule 5 05/17/2024 07/31/20 24 Discontinu ed(Medicat ion/Dose Changed) traMADol HCl 50 MG Oral Tablet (Ultram)Indications :Lumbar radiculopathy,Prima ry osteoarthritis of left knee Take 1 Tablet by mouth every 8 hours as needed for Pain, Severe. 90 Tablet 06/20/2024 07/31/20 24 Discontinu ed(Refill) Gabapentin 300 MG Oral Capsule (Neurontin)Indicati ons:Fibromyalgia Take 1 Capsule by mouth in the morning and 1 Capsule at noon and 1 Capsule before bedtime. 07/05/2024 07/31/20 24 Discontinu ed(Refill) documented as of this [...] reports upcoming carotid surgery at [facility]. She states she has rx for atorvastatin and plavix to flower buncher or picker at pharmacy. 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 Atherosclerosis of tanana co ronary artery without angina pectoris 12/31/2021 [...] Assessment & Plan: Home PT to start Morganza filter in place 08/19/2014 History of pulmonary [...] rx evidently given by vascular, has to flower buncher or picker rx documented as of this encounter [...] mRNA, LNP-s, No Pre serve, 2-Dose Series (IEV) 01/08/2021,12/18/2020 COVID-19, LNP-s, No Preserve , Navarro-sucrose, Ages 12+ (Pfizer) 2022,10/01/2021 COVID-19, MRNA-LNP, PF, 30 M CG/0.3 mL, 12 YRS AND ABOVE, IM (PFIZER-Comirnat) 07/31/2024,07/26/2023 Pneumococcal Conjugate Vacci ne, 20-valent ([id number]) 03/12/2022 Pneumococcal Polysaccharide PPV23 (Pneumovax) 08/22/2009,06/15/2006 RSV [...] Sign Reading Time Taken Comments Blood Pressure 114/56 07/31/2024 2:30 PM EST Pulse 88 07/31/2024 2:30 PM EST Temperature 36.1 C (96.9 F) 07/31/2024 2:30 PM ES T Respiratory Rate 16 07/31/2024 2:30 PM EST Oxygen Saturation 96% 07/31/2024 2:30 PM EST at 3 LPM Inhaled Oxygen Concentration - - Weight 121.7 kg (268 lb 4.8 oz) 07/31/2024 2:30 PM EST Height 161.9 cm (5' 3.75") 07/31/2024 2:30 PM ES T Body Mass Index 46.42 07/31/2024 2:30 PM EST documented in this encounter Progress Notes * Galdino Andujar, - 07/31/2024 2:59 PM EST SUBJECTIVE: Stephanie Camp is a [...] Dysfunction that is seen for follow up. Fatigue has wo rsened recently. Muscle stiffness and back pain have worsened slightly. Leg cramps resolved since stopping Atorvastatin. Chronic shortness of breath is unchanged. She is wearing 3 L oxygen at all times. Renal function has decreased and Gabapentin and Duloxetine doses need to be decreased. Patient Active Problem List Diagnosis Dyslipidemia Postsurgical [...] without neurogenic claudication Heparin induced thrombocytopenia (HIT) ([facility]) Atherosclerosis of tanana coronary artery without angina pectoris Carotid artery stenosis, asymptomatic, right Encounter for long-term current use of medication Type 2 diabetes mellitus with hemoglobin A1c goal of less than 8.0% ([facility]) Recurrent deep vein thrombosis (DVT) of both lower extremities ([facility]) Chronic hypoxemic respiratory failure ([facility]) Chronic kidney disease, stage 3b ([facility]) ILD (interstitial lung disease) ([facility]) Moderate episode of recurrent major depressive disorder ([facility]) Primary osteoarthritis of both knees Type 2 diabetes mellitus with stage 3b chronic kidney disease, with long-term current use of insulin ([facility]) Anxiety state Sacroiliitis, not elsewhere classified ([facility]) DM peripheral angiopathy ([facility]) Morbid (severe) obesity due to excess calories ([facility]) Iron deficiency Hydronephrosis of right kidney VRE (vancomycin-resistant Enterococci) infection Body mass index (BMI) of 45.0 to 49.9 in adult ([facility]) Current Outpatient Medications Medication Sig Dispense Refill [...] units BG > 150. 150 mL 3 Plavix 75 MG Oral Tablet Take 1 Tablet by mouth in the morning. Aspirin 81 MG Oral Tablet Delayed Release Take 1 Tablet by mouth in the morning. Tresiba FlexTouch 100 UNIT/ML Subcutaneous Solution Pen-injector (Insulin Degludec) INJECT 50 UNITSUNDER THE SKIN IN THE EVENING (Patient taking differently: Inject 41 Units under the skin every evening. Per [facility] pharmacist) 60 mL 3 Triamcinolone Acetonide 0.5 % [...] the morning and 1 Tablet before bedtime. Magnesium Oxide 400 MG Oral Tablet TAKE 1 TABLET BY MOUTH IN THE MORNING AND AT BEDTIME 60 Tablet 5 rOPINIRole HCl 2 MG Oral Tablet (Requip) TAKE 1 TABLET BY MOUTH AT BEDTIME 30 Tablet 5 Senna-Time S 8.6-50 MG [...] DAILY IN THE MORNING 30 Capsule 5 Furosemide 40 MG Oral Tablet (Lasix) Take 1.5 Tablets by mouth 2 times a day. 84 Tablet 5 traZODone HCl 50 MG Oral [...] hours as needed forNausea. 90 Tablet 6 clonazePAM 0.5 MG Oral Tablet (KlonoPIN) TAKE 1 TABLET BY MOUTH THREE TIMES A DAY 84 Tablet 0 Levothyroxine Sodium 200 MCG Oral Tablet (Levoxyl) TAKE 1 TABLET BY MOUTH ONCE DAILY IN THE [id number] Tablet 1 traMADol HCl 50 MG Oral Tablet (Ultram) Take 1 Tablet by mouth every 8 hours as needed for Pain, Severe. 90 Tablet 0 Meclizine HCl 12.5 MG Oral Tablet (Antivert) Take 1 Tablet by mouth 3 times a day as needed for Dizziness. 30 Tablet 1 Gabapentin 300 MG Oral Capsule (Neurontin) Take 1 Capsule by mouth in the morning and 1 Capsule before bedtime. 60 Capsule 5 ONETOUCH DELICA LANCETS 33G MISC Check blood sugars 3-4 times daily 180 Each 5 Dexcom G7 Sensor Use as directed. (From [facility]) BD Pen Needle Short U/F 31G X 8 MM (Insulin Pen Needle) use five times daily 500 Each 3 Atorvastatin Calcium 20 MG Oral Tablet (Lipitor) Take 1 Tablet by mouth in the morning. Prescribed by Carmen Waggoner PA-C. (Patient not taking: Reported on 06/26/2024) OneTouch Verio In Vitro Strip (Glucose Blood) Use up to 4 times a day E11.9 in case of dexcom failure 100 Strip 11 No current facility-administered medications for this visit. The patient's medication list was reviewed and updated as needed. Past Medical History: Diagnosis Date ELSIE (acute kidney injury) ([facility]) 06/12/2018 Allergic rhinitis due to other allergen Chronic hypoxemic respiratory failure ([facility]) 01/07/2022 Diverticulosis of colon 01/28/2006 Essential hypertension with goal blood pressure less than 140/90 02/22/2014 ELLIE (generalized anxiety disorder) 09/13/2009 [address] filter in place 08/19/2014 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HCC) 08/22/2009 History of pulmonary embolus (PE) 07/16/2014 HTN, goal below 140/90 Hydronephrosis Impetigo 09/27/2018 Obesity, BMI not known Perforation of intestine ([facility]) 1996 COLON -- 1996 Pneumonia in aspergillosis(484.6) 09/14/2009 Recurrent deep vein thrombosis (DVT) of both lower extremities ([facility]) 01/07/2022 Sleep apnea, obstructive Spinal stenosis of lumbar region without neurogenic claudication 07/15/2020 Spontaneous pneumothorax 09/14/2009 Statin intolerance 07/16/2014 Type 2 diabetes mellitus with hemoglobin A1c goal of less than 8.0% ([facility]) 01/07/2022 Past Surgical History: Procedure Laterality Date ARTHROPLASTY KNEE TOTAL Right 07/24/2014 R COLONOSCOPY, DIAGNOSTIC (RECTUM) 02/18/2016 normal, repeat 10 yrs/[facility] COLONOSCOPY, GI REFERRAL OP 01/28/2006 diverticulosis--repeat 10 years INCISION OF [place], PLANNED 06/03/2011 TRACHEOSTOMY PLANNED performed by DANNY HOLDER at OR [facility] INJECT DX/THER SUBSTANCE INTERLAMINAR LUMBAR/SACRAL W IMAGE GUIDE 05/26/2020 INJECTION SPINE LUMBAR OR SACRAL performed by Raj Ahn, DO at OR [facility] INJECT DX/THER SUBSTANCE INTERLAMINAR LUMBAR/SACRAL W IMAGE GUIDE 05/14/2021 INJECTION SPINE LUMBAR OR SACRAL performed by Raj Callum Coualejandras, DO at OR [facility] INJECT DX/THER SUBSTANCE INTERLAMINAR LUMBAR/SACRAL W IMAGE GUIDE 08/13/2021 INJECTION SPINE LUMBAR OR SACRAL performed by Bow Callum Coualejandras, DO at OR [facility] KNEE ARTHROSCOPY/DEBRIDEMENT 07/27/[address] PERMANENT GASTROSTOMY TUBE 09/06/2009 GASTROSTOMY WITH CONSTUCTION GASTRIC TUBE performed by AMADOU NUNEZ at [facility] REMOVAL OF THYROID GLAND 06/15/2011 THYROIDECTOMY INCLUDING SUBSTERNAL THYROID CERVICAL APPROACH performed by DANNY HOLDER at [facility] REMOVE GALLBLADDER 09/06/2009 CHOLECYSTECTOMY performed by AMADOU NUNEZ at [facility] REPAIR RECURRENT INCISIONAL HERNIA 09/26/1998 REVISION OF COLOSTOMY, SIMPLE 09/26/1997 SACROILIAC JOINT INJECT W/GUIDANCE 07/28/2020 INJECTION SACROILIAC JOINT performed by Bow Callum Ahn, DO at OR [facility] SACROILIAC JOINT INJECT W/GUIDANCE 03/03/2022 INJECTION SACROILIAC JOINT performed by Bow Callum Ahn, DO at OR [facility] SACROILIAC JOINT INJECT W/GUIDANCE 05/04/2023 INJECTION SACROILIAC JOINT [facility] at OR [facility] SUTURE, LARGE INTESTINE W/COLOSTOMY 09/26/1996 perforation R colon with colostomy TRANSCATH STENT-CAROTID ARTERY, W/EMBOL PROTECTION Right 09/06/2023 Dr. Tang VENA CAVA FILTER/LIGATION/CLIP 08/19/2009 Morganza filter placement through the right femoral 08/19/[address] Lerma at [facility] Review of patient's allergies indicates: Allergen Reactions [...] concentration, dysphoric mood and sleep disturbance.Negative for confusion and suicidal ideas. OBJECTIVE: BP 114/56 | Pulse 88 | Temp 36.1 C (96.9 F) | Resp 16 | Ht 1.619 m (5' 3.75") | Wt 121.7 kg (268 lb 4.8 oz) | LMP 03/11/2003 | SpO2 96% Comment: at 3 LPM | BMI 46.42 kg/m | BSA 2.34 m Physical Exam Vitals and nursing note [...] the ventral area. Musculoskeletal: Right lower leg: Edema present. Left lower leg: Edema present. Neurological: Mental Status: She is alert. Mental status is at baseline. Motor: Weakness present. Gait: Gait abnormal. Psychiatric: Mood and Affect: Mood is depressed. Affect is flat. PLAN AND ASSESSMENT: 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 3b chronic kidney disease (HCC) (Primary) - COMPREHENSIVE METABOLIC PANEL; Future; Expected date: 07/31/2024 - CBC WITH WBC DIFFERENTIAL; Future; Expected date: 07/31/2024 Continue Furosemide Lumbar radiculopathy - Renew traMADol HCl 50 MG Oral Tablet (Ultram); Take 1 Tablet by mouth every 8 hours as needed forPain, Severe. - Decrease Gabapentin 300 MG Oral Capsule (Neurontin); Take 1 Capsule by mouth in the morning and 1Capsule before bedtime due to worsening renal function Vertigo - Meclizine HCl 12.5 MG Oral Tablet (Antivert); Take 1 Tablet by mouth 3 times a day as needed for Dizziness. - CBC WITH WBC DIFFERENTIAL; Future; Expected date: 07/31/2024 Type 2 diabetes mellitus with stage 3b chronic kidney disease, with long-term current use of insulin (HCC) Continue Monjaro Trisiba and Novolog adjustment per MTM ILD (interstitial lung disease) ([facility]) Moderate episode of recurrent major depressive disorder ([facility]) Decrease Duloxetine to 60 mg daily to decreased renal function Postsurgical hypothyroidism Continue Levothyroxine ELISSA (obstructive sleep apnea) History of pulmonary embolus (PE) Restless legs syndrome Decrease Gabapentin 300 mg two times as day Gastroesophageal reflux disease with esophagitis without hemorrhage Continue Omeprazole Hyperparathyroidism, secondary renal ([facility]) Spinal stenosis of lumbar region without neurogenic claudication Atherosclerosis of tanana coronary artery of tanana heart without angina pectoris Primary osteoarthritis of both knees - traMADol HCl 50 MG Oral Tablet (Ultram); Take 1 Tablet by mouth every 8 hours as needed for Pain,Severe. Fibromyalgia - Gabapentin 300 MG Oral Capsule (Neurontin); Take 1 Capsule by mouth in the morning and 1 Capsulebefore bedtime. Other orders - COVID-19, MRNA-LNP, PF, 24-25, 30MCG/0.3ML, IM, 12YRS AND ABOVE ([facility]) Urinary frequency - URINALYSIS, POINT OF CARE (ENTER/EDIT) - CULTURE, URINE, QUANTITATIVE; Future; Expected date: 07/31/2024 I have reviewed the patients controlled substance dispensing history in the Prescription Drug Monitoring Program in compliance with the [facility] regulations before prescribing a controlled substance. [...] results can be found in Results Review. I spent a total of 40-54 minutes (exact time 45 mins) on the date of service in preparation, delivery, and documentation of the care provided to Stephanie Camp excluding any time spent in the performance of separately billed services or time spent by another provider/QHP. Follow Up: Return in about 1 month (around 08/30/2024), or if symptoms worsen or fail to improve. Galdino Andujar DO 2:59 PM 07/31/2024 documented in this encounter Nursing Notes * Shira Gross LPN - 07/31/2024 2:35 PM EST Problems with occasional dizziness documented in this encounter Plan of Treatment Upcoming Encounters Date Type Department Care Team (Late st Contact Info) Description 09/12/2024 11:00 AM EST Office Visit Nephrology, [facility] [address] [place] [id number] Erik Lenz MD [address] [place] [address] 01/15/2025 1:30 PM EDT Office Visit Cardiology, [facility] [address] [facility] [place] [address] Marjorie Powell PA-C [address] [facility] [place] [address] 02/19/2025 1:00 PM EDT Nurse Only Family Practice [address] [facility] [place] [address] [facility], [place] [phone] Shira De La Rosa, LEXI [address] [facility] [place] [phone] 06/13/2025 1:30 PM EDT Imaging Radiology [address] [facility] [place] [id number] Pending Results Name Type Priority Associated Diagnoses Date /Time CULTURE, URINE, QUANTITATIVE Lab Routine Urinary frequency 07/31/2024 3:38 PM EST Scheduled Orders Name Type Priority Associated Diagnoses Order Schedule COMPREHENSIVE METABOLIC PANEL Lab Routine 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 3b chronic kidney disease (HCC) Expected: 07/31/2024 (Approximate), Expires: 07/31/2025 CBC WITH WBC DIFFERENTIAL Lab Routine Vertigo 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 3b chronic kidney disease (HCC) Expected: 07/31/2024 (Approximate), Expires: 07/31/2025 URINALYSIS, POINT OF CARE (ENTER/EDIT) Point of Care Testing Routine Urinary frequency Ordered: 07/31/2024 CULTURE, URINE, QUANTITATIVE Lab Routine Urinary frequency Expected: 07/31/2024, Expires: 07/31/2025 Scheduled Procedures Name Priority Associated Diagnoses Date/Ti [...] Additional history exists CKD PHOS USE SMARTSET 10447 12/26/2024 04/0 10/2023, 02/11/2023, 01/07/2022, Additional history exists Adult Wellness Visit 02/13/2025 02/14/2024, 08/05/20 22 Mammogram 06/12/2025 06/12/2024, 05/27, 04/21/2023, Additional history exists CKD HGB USE SMARTSET 45404 06/26/202506/26, 06/26/2024, 05/18/2024, Additional history exists Diabetic [...] stage 3b chronic kidney disease (HCC)- Primary Lumbar radiculopathy Thoracic or lumbosacral neuritis or radiculitis, unspecified Vertigo Dizziness and giddiness Type 2 diabetes mellitus with stage 3b chronic kidney disease, with long-term current use of insulin (HCC) ILD (interstitial lung disease) (HCC) Postinflammatory pulmonary fibrosis Moderate episode of recurrent major depressive disorder (HCC) Postsurgical hypothyroidism ELISSA (obstructive sleep apnea) Obstructive sleep apnea (adult) (pediatric) History of pulmonary embolus (PE) Personal history of pulmonary embolism Restless legs syndrome Restless legs syndrome (RLS) Gastroesophageal reflux disease with esophagitis without hemorrhage Hyperparathyroidism, secondary renal (HCC) Secondary hyperparathyroidism (of renal origin) Spinal stenosis of lumbar region without neurogenic claudication Spinal stenosis, lumbar region, without neurogenic claudication Atherosclerosis of tanana coronary artery of tanana heart without angina pectoris Primary osteoarthritis of both knees Primary localized osteoarthrosis, lower leg Fibromyalgia Mylagia and myositis, unspecified Urinary frequency Screening mammogram for breast cancer documented in this encounter Advance Directives Documents on File Type Date Recorded Patient [employer] Intern[employer] Expl anation POLST 03/19/2020 4:25 PM [...] (no specific identity) Health Care Power of Accounts Payable Coordinator Princess Allen Other - (no specific identity) Health Care Power of Accounts Payable Coordinator Care Teams Edge Gluer Relationship Specialty Start Date End Date Galdino Andujar DO [address] [place] [address] PCP - General Internal Medicine 03/08/24 documented as of this encounter
--- OUTSIDE RECORDS SUMMARY | 2024-12-09 19:31 | External Medical Summary | Summary of Care ---
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); Moderate episode of recurrent major depressive disorder ([facility]); Postsurgical hypothyroidism; ELISSA (obstructive sleep apnea); History of pulmonary embolus (PE); Restless legs syndrome; Gastroesophageal reflux disease with esophagitis without hemorrhage; Hyperparathyroidism, secondary renal (HCC); Spinal stenosis of lumbar region without neurogenic claudication; Atherosclerosis of [place] coronary artery of [place] heart without angina pectoris; Primary osteoarthritis of both knees; Fibromyalgia; Urinary frequency; Acute cystitis without hematuria Allergies Active Allergy Reactions Criticality Noted Date [...] Refills Start Date End Date Status VALENTINATOUCH ZULAY LANCETS 33G MISC Check blood sugars [...] Dexcom G7 Sensor [facility]. [facility] 06/01/2023 Active BD Pen Needle Short U/F [...] taking differently: 41 Units Subcutaneous DAILY(1900), Per [facility] pharmacist, Reported on 06/29/2024 Atorvastatin Calcium 20 [...] [facility]) Inject 7.5 mg under the skin once [...] before bedtime. 60 Capsule 5 07/31/2024 Active Cefdinir 300 MG Oral Capsule (Omnicef) Take 1 Capsule by mouth in the morning for 7 days. 7 Capsule 07/31/2024 08/07/20 24 Active DULoxetine HCl 30 MG Oral Capsule [...] has rx for atorvastatin and plavix to orange picker machine operator at pharmacy. Type 2 [...] 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 Atherosclerosis of [place] co ronary artery without angina pectoris 12/31/2021 [...] Assessment & Plan: Home PT to start Addison filter in place 08/19/2014 History of pulmonary [...] rx evidently given by vascular, has to orange picker machine operator rx documented as of [...] mRNA, LNP-s, No Pre serve, 2-Dose Series ([employer]) 01/08/2021,12/18/2020 COVID-19, LNP-s, No Preserve , Navarro-sucrose, Ages 12+ (Pfizer) 2022,10/01/2021 COVID-19, MRNA-LNP, PF, 30 M CG/0.3 mL, 12 YRS AND ABOVE, IM (PFIZER-Comirnaty) 07/31/2024,07/26/2023 Pneumococcal Conjugate Vacci ne, 20-valent ([id number]) 03/12/2022 Pneumococcal Polysaccharide PPV23 (Pneumovax) 08/22/2009,06/15/2006 RSV [...] documented in this encounter Progress Notes * Lexii Andujar, - 07/31/2024 2:59 PM EST SUBJECTIVE: [...] [facility]) Hyperparathyroidism, secondary renal ([facility]) Vasculitis ([facility]) Spinal stenosis of lumbar region without neurogenic claudication Heparin induced thrombocytopenia (HIT) ([facility]) Atherosclerosis of [place] coronary artery without angina pectoris Carotid artery stenosis, asymptomatic, right Encounter for long-term current use of medication Type 2 diabetes mellitus with hemoglobin A1c goal of less than 8.0% ([facility]) Recurrent deep vein thrombosis (DVT) of both lower extremities ([facility]) Chronic hypoxemic respiratory failure ([facility]) Chronic kidney disease, stage 3b ([facility]) ILD (interstitial lung disease) ([facility]) Moderate episode of recurrent major depressive disorder ([facility]) Primary osteoarthritis of both knees Type 2 diabetes mellitus with stage 3b chronic kidney disease, with long-term current use of insulin ([facility]) Anxiety state Sacroiliitis, not elsewhere classified ([facility]) DM peripheral angiopathy ([facility]) Morbid (severe) obesity due to excess calories ([facility]) Iron deficiency Hydronephrosis of right kidney VRE (vancomycin-resistant Enterococci) infection Body mass index (BMI) of 45.0 to 49.9 in adult ([facility]) Current Outpatient Medications Medication Sig Dispense Refill [...] Units under the skin every evening. Per [facility] pharmacist) 60 mL 3 Triamcinolone Acetonide 0.5 [...] TABLET BY MOUTH ONCE DAILY IN THE OBIIARL76 Tablet 1 traMADol HCl 50 MG Oral [...] [facility]) BD Pen Needle Short U/F 31G [...] to other allergen Chronic hypoxemic respiratory failure ([facility]) 01/07/2022 Diverticulosis of colon 01/28/2006 Essential hypertension with goal blood pressure less than 140/90 02/22/2014 ELLIE (generalized anxiety disorder) 09/13/2009 Goiter [address] filter in place 08/19/2014 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[facility]) 08/22/2009 History of pulmonary embolus (PE) 07/16/2014 HTN, goal below 140/90 Hydronephrosis Impetigo 09/27/2018 Obesity, BMI not known Perforation of intestine ([facility]) 1996 COLON -- 1996 Pneumonia in aspergillosis(484.6) 09/14/2009 Recurrent deep vein thrombosis (DVT) of both lower extremities ([facility]) 01/07/2022 Sleep apnea, obstructive Spinal stenosis of lumbar region without neurogenic claudication 07/15/2020 Spontaneous pneumothorax 09/14/2009 Statin intolerance 07/16/2014 Type 2 diabetes mellitus with hemoglobin A1c goal of less than 8.0% ([facility]) 01/07/2022 Past Surgical History: Procedure Laterality Date ARTHROPLASTY KNEE TOTAL Right 07/24/2014 R COLONOSCOPY, DIAGNOSTIC (RECTUM) 02/18/2016 normal, repeat 10 yrs/[facility] COLONOSCOPY, GI REFERRAL OP 01/28/2006 diverticulosis--repeat [...] performed by Raj Ahn, DO at OR [facility] INJECT DX/THER SUBSTANCE INTERLAMINAR LUMBAR/SACRAL W IMAGE GUIDE 08/13/2021 INJECTION SPINE LUMBAR OR SACRAL performed by Raj Ahn DO at OR [facility] KNEE ARTHROSCOPY/DEBRIDEMENT 07/27/[address] PERMANENT GASTROSTOMY TUBE 09/06/2009 GASTROSTOMY WITH CONSTUCTION GASTRIC TUBE performed by AMDAOU NUNEZ at [facility] REMOVAL OF THYROID GLAND 06/15/2011 THYROIDECTOMY INCLUDING SUBSTERNAL THYROID CERVICAL APPROACH performed by DANNY HOLDER at OR [facility] REMOVE GALLBLADDER 09/06/2009 CHOLECYSTECTOMY performed by AMADOU NUNEZ at [facility] REPAIR RECURRENT INCISIONAL HERNIA 09/26/1998 REVISION OF COLOSTOMY, SIMPLE 09/26/1997 SACROILIAC JOINT INJECT W/GUIDANCE 07/28/2020 INJECTION SACROILIAC JOINT performed by Raj Ahn DO at OR [facility] SACROILIAC JOINT INJECT W/GUIDANCE 03/03/2022 INJECTION SACROILIAC JOINT performed by Muddy Callum Ahn DO at OR [facility] SACROILIAC JOINT INJECT W/GUIDANCE 05/04/2023 INJECTION SACROILIAC JOINT performed by Raj Ahn DO at OR [facility] SUTURE, LARGE INTESTINE W/COLOSTOMY 09/26/1996 perforation R colon with colostomy TRANSCATH STENT-CAROTID ARTERY, W/EMBOL PROTECTION Right 09/06/2023 Dr. Tang VENA CAVA FILTER/LIGATION/CLIP 08/19/2009 Addison filter placement through the right femoral 08/19/[address] Lerma at [facility] Review of patient's allergies indicates: Allergen [...] adjustment per MTM ILD (interstitial lung disease) ([facility]) Moderate episode of recurrent major depressive disorder (HCC) Decrease Duloxetine to 60 mg daily to decreased renal function Postsurgical hypothyroidism Continue Levothyroxine ELISSA (obstructive sleep apnea) History of pulmonary embolus (PE) Restless legs syndrome Decrease Gabapentin 300 mg two times as day Gastroesophageal reflux disease with esophagitis without hemorrhage Continue Omeprazole Hyperparathyroidism, secondary renal (HCC) Spinal stenosis of lumbar region without neurogenic claudication Atherosclerosis of [place] coronary artery of [place] heart without angina pectoris Primary osteoarthritis of both knees - traMADol HCl 50 MG Oral Tablet (Ultram); Take 1 Tablet by mouth every 8 hours as needed for Pain,Severe. Fibromyalgia - Gabapentin 300 MG Oral Capsule (Neurontin); Take 1 Capsule by mouth in the morning and 1 Capsule before bedtime. Other orders - COVID-19, MRNA-LNP, PF, 24-25, 30MCG/0.3ML, IM, 12YRS AND ABOVE ([employer]) Urinary frequency - URINALYSIS, POINT OF CARE (ENTER/EDIT) - CULTURE, URINE, QUANTITATIVE; Future; Expected date: 07/31/2024 I have reviewed the patients controlled substance dispensing history in the Prescription Drug Monitoring Program in compliance with the [facility] regulations before prescribing a controlled substance. [...] if symptoms worsen or fail to improve. Lexii Andujar DO 2:59 PM 07/31/2024 documented in this encounter Nursing Notes * Shira Gross LPN - 07/31/2024 2:35 PM EST Problems with occasional dizziness documented in this encounter Miscellaneous Notes * Addendum Note - Lexii Andujar DO - 07/31/2024 3:46 PM ESTAddended by: LEXII ANDUJAR on: 07/31/2024 03:46 PM Modules accepted: Orders documented in this encounter Plan of Treatment Upcoming Encounters Date Type Department Care Team (Late st Contact Info) Description 09/12/2024 11:00 AM EST Office Visit Nephrology, [facility] [address] [place] [address] Erik Lenz MD [address] [facility] [address] [address] [place] [address] 01/15/2025 1:30 PM EDT Office Visit Cardiology, [facility] [address] [facility] [place] [address] Marjorie Powell PA-C [address] [place] [address] 02/19/2025 1:00 PM EDT Nurse Only Family Practice [address] [facility] [place] [address] [place] [phone] Shira De La Rosa, LEXI [address] [facility] [place] [phone] 06/13/2025 1:30 PM EDT Imaging Radiology [address] [facility] [place] [address] Pending Results Name Type Priority Associated Diagnoses [...] Additional history exists CKD PHOS USE SMARTSET 58137 12/26/2024 04/0 10/2023, 02/11/2023, 01/07/2022, Additional history exists Adult Wellness Visit 02/13/2025 02/14/2024, 08/05/20 22 Mammogram 06/12/2025 06/12/2024, 05/27, 04/21/2023, Additional history exists CKD HGB USE SMARTSET 03014 06/26/202506/26, 06/26/2024, 05/18/2024, Additional history exists Diabetic [...] lumbar region, without neurogenic claudication Atherosclerosis of [place] coronary artery of [place] heart without angina pectoris Primary osteoarthritis of both knees Primary localized osteoarthrosis, lower leg Fibromyalgia Mylagia and myositis, unspecified Urinary frequency Acute cystitis without hematuria Acute cystitis Screening mammogram for breast cancer documented in this encounter Advance Directives Documents on File Type Date Recorded Patient [facility] Specialist Expl anation POLST 03/19/2020 4:25 PM [...] (no specific identity) Health Care Power of Continuous Pickling Line Pickler Princess Allen Other - (no specific identity) Health Care Power of Continuous Pickling Line Pickler Care Teams Distribution Spec Relationship Specialty Start Date End Date Lexii Andujar DO [address] [place] [address] PCP - General Internal Medicine 03/08/24 documented as of this encounter
--- OUTSIDE RECORDS SUMMARY | 2024-12-09 19:31 | External Medical Summary ---
Author Name Unknown Address Unknown Organization [id number]:[facility] - [address] [facility] [address] Laboratory Report Ordering Provider Test Date Status JAG SHULTZ 07/31/2024 15:38:41 Final Observation Date Value Abnormality Reference (Units ) Status Bacteria identified in Specimen by Culture 07/31/2024 15:38:41 [id number]^ENTEROB ACTER CLOACAE COMPLEX Abnormal Final >100,000 colonies/mL Enterob acter cloacae complex
This bacterial species is known to produce an inducible AmpC beta lactamase. Except for the treatment of simple cystitis, recommend avoiding penicillins or cephalosporins other than cefepime. Performing Location [facility] - [address] [facility] [address] Ordering Provider Test Date Status JAG SHULTZ 07/31/2024 15:38:41 Final Observation Date Value Abnormality Reference (Units ) Status Cefepime susceptibility 07/31/2024 15:38:41 <=1 Susceptible Final cefOXitin [Susceptibility] 07/31/2024 15:38:41 >=64 Resistant Final Ceftriaxone suceptibility 07/31/2024 15:38:41 <=1 Susceptible Final Avoid unless for the treatme nt of simple cystitis. Ciprofloxacin 07/31/2024 15:38:41 <=0.25 Susceptible Final Due to serious side effects, the FDA has advised against using Ciprofloxacin to treat uncomplicated UTIs and respiratory tract infections unless there are no alternative treatment options. Gentamicin susceptibility 07/31/2024 15:38:41 <=1 Susc eptible Final Nitrofurantoin susceptibility 07/31/2024 15:38:41 64 Intermediate Final Piperacillin + Tazobactamsusceptibility 07/31/2024 15:38:41 <=4 Susceptible Final Avoid unless for the treatme nt of simple cystitis. TMP-SMZ susceptibility 07/31/2024 15:38:41 <=20 Suscept ible Final Test: Culture, Urine, Quanti tative
Specimen Source: Urine, Clean Catch
Specimen Type: Urine
Specimen Date: 07/31/20241537
Result Date: 08/02/2024 151
Result Status: Final result
Abnormal: Yes
Resulting Lab: [facility]
[address]
[place] [address]

CULTURE

>100,000 colonies/mL Enterobacter cloacae complex (Abnormal)

This bacterial species is known to produce an inducible AmpC beta
lactamase. Except for the treatment of simple cystitis, recommend avoiding
penicillins or cephalosporins other than cefepime.

SUSCEPTIBILITY

Enterobacter cloacae
complex
METHOD MICROBROTH DILUTIONS

[...] of simple cystitis.

null Performing Location [facility] [place] [address] [facility] [address]
--- OUTSIDE RECORDS SUMMARY | 2024-12-09 19:31 | External Medical Summary | Summary of Care ---
Author Name Unknown Organization [facility] Address [address] [place] [address] Phone [phone] Care Team Providers Care Rotary Shear Worker Helper Name Role Phone Galdino Andujar DO Primary Care Provider [phone] Reason for Visit * Reason Comments Follow Up Encounter Details Date Type Department Care Team (Latest Contact Info) Description 07/31/2024 2:20 PM EST Office Visit Family Practice [facility] [address] [place] [address] Galdino Andujar DO [address] [place] [address] 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 3b chronic kidney disease (HCC)*; Lumbar radiculopathy; Vertigo; Type 2 diabetes mellitus with stage 3b chronic kidney disease, with long-term current use of insulin ([facility]); ILD (interstitial lung disease) ([facility]); Moderate episode of recurrent major depressive disorder ([facility]); Postsurgical hypothyroidism; ELISSA (obstructive sleep apnea); History of pulmonary embolus (PE); Restless legs syndrome; Gastroesophageal reflux disease with esophagitis without hemorrhage; Hyperparathyroidism, secondary renal (HCC); Spinal stenosis of lumbar region without neurogenic claudication; Atherosclerosis of [place] coronary artery of [place]zanita heart without angina pectoris; Primary osteoarthritis of [...] taking differently: 41 Units Subcutaneous DAILY(1900), Per [facility] pharmacist, Reported on 06/29/2024 Atorvastatin [...] of insulin ([facility]) Inject 7.5 mg under the skin [...] vascular, reports upcoming carotid surgery at [facility]. She states she has rx for atorvastatin [...] 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 Atherosclerosis of manzanita co ronary artery without angina pectoris 12/31/2021 [...] Assessment & Plan: Home PT to start Collins filter in place 08/19/2014 History of [...] mRNA, LNP-s, No Pre serve, 2-Dose Series ([employer]) 01/08/2021,12/18/2020 COVID-19, LNP-s, No Preserve , Navarro-sucrose, Ages 12+ (Pfizer) 2022,10/01/2021 COVID-19, MRNA-LNP, PF, 30 M CG/0.3 mL, 12 YRS AND ABOVE, IM (PFIZER-Comirnat) 07/31/2024,07/26/2023 Pneumococcal Conjugate Vacci ne, 20-valent ([id number]) 03/12/2022 Pneumococcal Polysaccharide PPV23 (Pneumovax) 08/22/2009,06/15/2006 RSV [...] Progress Notes * Galdino Andujar, DO - 07/31/2024 2:59 PM EST SUBJECTIVE: Stephanie [...] than 140/90 History of pulmonary embolus (PE) Collins filter in place Fibromyalgia Abnormality of gait [...] 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) Atherosclerosis of manzan[place] coronary artery without angina pectoris Carotid artery stenosis, asymptomatic, right Encounter for long-term current use of medication Type 2 diabetes mellitus with hemoglobin A1c goal of less than 8.0% ([facility]) Recurrent deep vein thrombosis (DVT) of both lower extremities ([facility]) Chronic hypoxemic respiratory failure ([facility]) Chronic kidney disease, stage 3b ([facility]) ILD (interstitial lung disease) ([facility]) Moderate episode of recurrent major depressive disorder ([facility]) Primary osteoarthritis of both knees Type 2 diabetes mellitus with stage 3b chronic kidney disease, with long-term current use of insulin ([facility]) Anxiety state Sacroiliitis, not elsewhere classified ([facility]) DM peripheral angiopathy ([facility]) Morbid (severe) obesity due to excess calories ([facility]) Iron deficiency Hydronephrosis of right kidney VRE (vancomycin-resistant Enterococci) infection Body mass index (BMI) of 45.0 to 49.9 in adult ([facility]) Current Outpatient Medications Medication Sig Dispense Refill [...] Units under the skin every evening. Per [facility] pharmacist) 60 mL 3 Triamcinolone [...] TABLET BY MOUTH ONCE DAILY IN THE [id number] Tablet 1 traMADol HCl 50 MG Oral [...] 60 Capsule 5 ONETOUCH DELICA LANCETS 33G [facility] Check blood sugars 3-4 times daily 180 Each 5 Dexcom G7 Sensor Use as directed. (From [facility]) BD Pen Needle Short U/F 31G [...] allergen Chronic hypoxemic respiratory failure ([facility]) 01/07/2022 Diverticulosis of colon 01/28/2006 Essential hypertension with goal blood pressure less than 140/90 02/22/2014 ELLIE (generalized anxiety disorder) 09/13/2009 Goiter [address] filter in place 08/19/2014 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[facility]) 08/22/2009 History of pulmonary embolus (PE) 07/16/2014 HTN, goal below 140/90 Hydronephrosis Impetigo 09/27/2018 Obesity, BMI not known Perforation of intestine ([facility]) 1996 COLON -- 1996 Pneumonia in aspergillosis(484.6) 09/14/2009 Recurrent deep vein thrombosis (DVT) of both lower extremities ([facility]) 01/07/2022 Sleep apnea, obstructive Spinal stenosis of lumbar region without neurogenic claudication 07/15/2020 Spontaneous pneumothorax 09/14/2009 Statin intolerance 07/16/2014 Type 2 diabetes mellitus with hemoglobin A1c goal of less than 8.0% ([facility]) 01/07/2022 Past Surgical History: Procedure Laterality Date ARTHROPLASTY KNEE TOTAL Right 07/24/2014 R COLONOSCOPY, DIAGNOSTIC (RECTUM) 02/18/2016 normal, repeat 10 yrs/[facility] COLONOSCOPY, GI REFERRAL OP 01/28/2006 diverticulosis--repeat 10 years INCISION OF [place], PLANNED 06/03/2011 TRACHEOSTOMY PLANNED performed by DANNY HOLDER at OR [facility] INJECT DX/THER SUBSTANCE INTERLAMINAR LUMBAR/SACRAL W IMAGE GUIDE 05/26/2020 INJECTION SPINE LUMBAR OR SACRAL performed by Raj Ahn, DO at OR [facility] INJECT DX/THER SUBSTANCE INTERLAMINAR LUMBAR/SACRAL W IMAGE GUIDE 05/14/2021 INJECTION SPINE LUMBAR OR SACRAL performed by Raj Ahn, DO at OR [facility] INJECT DX/THER SUBSTANCE INTERLAMINAR LUMBAR/SACRAL W IMAGE GUIDE 08/13/2021 INJECTION SPINE LUMBAR OR SACRAL performed by Raj Callum Ahn, DO at OR [facility] KNEE ARTHROSCOPY/DEBRIDEMENT 07/27/[address] PERMANENT GASTROSTOMY TUBE 09/06/2009 GASTROSTOMY WITH CONSTUCTION GASTRIC TUBE performed by AMADOU NUNEZ at [facility] REMOVAL OF THYROID GLAND 06/15/2011 THYROIDECTOMY INCLUDING SUBSTERNAL THYROID CERVICAL APPROACH performed by DANNY HOLDER at OR [facility] REMOVE GALLBLADDER 09/06/2009 CHOLECYSTECTOMY performed by AMADOU NUNEZ at [facility] REPAIR RECURRENT INCISIONAL HERNIA 09/26/1998 REVISION OF COLOSTOMY, SIMPLE 09/26/1997 SACROILIAC JOINT INJECT W/GUIDANCE 07/28/2020 INJECTION SACROILIAC JOINT performed by Philip Callum Ahn, DO at OR [facility] SACROILIAC JOINT INJECT W/GUIDANCE 03/03/2022 INJECTION SACROILIAC JOINT performed by Philip Callum Ahn, DO at OR [facility] SACROILIAC JOINT INJECT W/GUIDANCE 05/04/2023 INJECTION SACROILIAC JOINT performed by Philip Callum Ahn, DO at OR [facility] SUTURE, LARGE INTESTINE W/COLOSTOMY 09/26/1996 perforation R colon with colostomy TRANSCATH STENT-CAROTID ARTERY, W/EMBOL PROTECTION Right 09/06/2023 Dr. Tang VENA CAVA FILTER/LIGATION/CLIP 08/19/2009 Collins filter placement through the right femoral 08/19/[address] Lerma at [facility] Review of patient's allergies indicates: Allergen Reactions [...] of insulin ([facility]) Continue Monjaro Trisiba and Novolog adjustment per MTM ILD (interstitial lung disease) ([facility]) Moderate episode of recurrent major depressive disorder ([facility]) Decrease Duloxetine to 60 mg daily to decreased renal function Postsurgical hypothyroidism Continue Levothyroxine ELISSA (obstructive sleep apnea) History of pulmonary embolus (PE) Restless legs syndrome Decrease Gabapentin 300 mg two times as day Gastroesophageal reflux disease with esophagitis without hemorrhage Continue Omeprazole Hyperparathyroidism, secondary renal ([facility]) Spinal stenosis of lumbar region without neurogenic claudication Atherosclerosis of [place] coronary artery of [place] heart without angina pectoris Primary osteoarthritis of both knees - traMADol HCl 50 MG Oral Tablet (Ultram); Take 1 Tablet by mouth every 8 hours as needed for Pain,Severe. Fibromyalgia - Gabapentin 300 MG Oral Capsule (Neurontin); Take 1 Capsule by mouth in the morning and 1 Capsule before bedtime. Other orders - COVID-19, MRNA-LNP, PF, 24-25, 30MCG/0.3ML, IM, 12YRS AND ABOVE ([employer]) Urinary frequency - URINALYSIS, POINT OF CARE (ENTER/EDIT) - CULTURE, URINE, QUANTITATIVE; Future; Expected date: 07/31/2024 I have reviewed the patients controlled substance dispensing history in the Prescription Drug Monitoring Program in compliance with the [facility] regulations before prescribing a controlled substance. Last [...] Office Visit NephrologyGregorio [address] [place] [address] Erik Lenz MD [address] [place] [address] 01/15/2025 1:30 PM EDT Office Visit Cardiology, [facility] [address] [facility] [place] [address] Marjorie Powell PA-C [address] [facility] [place] [address] 02/19/2025 1:00 PM EDT Nurse Only Family Practice 65 [facility] [place] [address] [place] [phone] Shira De La Rosa, LEXI [address] [place] [phone] 06/13/2025 1:30 PM EDT Imaging Radiology [facility] [address] [place] [address] Scheduled Orders Name Type Priority Associated Diagnoses [...] 11/01/2022, Additional history exists GFR 12/25/2024 06/26/2024, 08/2 11/2023, 02/02/2024, Additional history exists HbA1c 12/25/2024 06/26/2024, 07/0 09/2023, 12/22/2023, Additional history exists CKD PHOS USE SMARTSET 85676 12/26/2024 04/0 10/2023, 02/11/2023, 01/07/2022, Additional history exists Adult Wellness Visit 02/13/2025 02/14/2024, 08/05/20 22 Mammogram 06/12/2025 06/12/2024, 05/27, 04/21/2023, Additional history exists CKD HGB USE SMARTSET 76254 06/26/202506/26, 06/26/2024, 05/18/2024, Additional history exists Diabetic [...] lumbar region, without neurogenic claudication Atherosclerosis of manzanita coronary artery of [place]zan[place] heart without angina pectoris Primary osteoarthritis of both knees Primary localized osteoarthrosis, lower leg Fibromyalgia Mylagia and myositis, unspecified Urinary frequency Screening mammogram for breast cancer documented in this encounter Advance Directives Documents on File Type Date Recorded Patient Kerrick Kleaner Operator Expl anation POLST 03/19/2020 4:25 PM [...] (no specific identity) Health Care Power of Facility Administrator Princess Allen Other - (no specific identity) Health Care Power of Facility Administrator Care Teams Rotary Shear Worker Helper Relationship Specialty Start Date End Date Galdino Andujar DO [address] [facility] [place] [address] PCP - General Internal Medicine 03/08/24 documented as of this encounter
--- OUTSIDE RECORDS SUMMARY | 2024-12-09 19:31 | External Medical Summary | Summary of Care ---
Author Name Unknown Organization [facility] Address [address] [place] [address] Phone [phone] Care Team Providers Care Bilingual Account Manager Name Role Phone Galdino Andujar DO Primary Care Provider [phone] Reason for Visit * Reason Comments Follow Up Encounter Details Date Type Department Care Team (Latest Contact Info) Description 07/31/2024 2:20 PM EST Office Visit Family Practice 65 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 3b chronic kidney disease (HCC)*; Lumbar radiculopathy; Vertigo; Type 2 diabetes mellitus with stage 3b chronic kidney disease, with long-term current use of insulin ([facility]); ILD (interstitial lung disease) ([facility]); Moderate episode of recurrent major depressive disorder ([facility]); Postsurgical hypothyroidism; ELISSA (obstructive sleep apnea); History of pulmonary embolus (PE); Restless legs syndrome; Gastroesophageal reflux disease with esophagitis without hemorrhage; Hyperparathyroidism, secondary renal (HCC); Spinal stenosis of lumbar region without neurogenic claudication; Atherosclerosis of [place] coronary artery of [place] heart without angina pectoris; Primary osteoarthritis of [...] taking differently: 41 Units Subcutaneous DAILY(1900), Per [facility] pharmacist, Reported on 06/29/2024 Atorvastatin [...] vascular, reports upcoming carotid surgery at [facility]. She states she has rx for [...] Assessment & Plan: Home PT to start [place] filter in place 08/19/2014 History of [...] mRNA, LNP-s, No Pre serve, 2-Dose Series ([employer]) 01/08/2021,12/18/2020 COVID-19, LNP-s, No Preserve , Navarro-sucrose, Ages 12+ (Pfizer) 2022,10/01/2021 COVID-19, MRNA-LNP, PF, 30 M CG/0.3 mL, 12 YRS AND ABOVE, IM (PFIZER-Comirnat) 07/31/2024,07/26/2023 Pneumococcal Conjugate Vacci ne, 20-valent ([id number]) 03/12/2022 Pneumococcal Polysaccharide PPV23 (Pneumovax) 08/22/2009,06/15/2006 RSV [...] without neurogenic claudication Heparin induced thrombocytopenia (HIT) ([facility]) Atherosclerosis of [place] coronary artery without angina pectoris Carotid artery stenosis, asymptomatic, right Encounter for long-term current use of medication Type 2 diabetes mellitus with hemoglobin A1c goal of less than 8.0% ([facility]) Recurrent deep vein thrombosis (DVT) of both lower extremities ([facility]) Chronic hypoxemic respiratory failure ([facility]) Chronic kidney disease, stage 3b ([facility]) ILD (interstitial lung disease) ([facility]) Moderate episode of recurrent major depressive disorder ([facility]) Primary osteoarthritis of both knees Type 2 diabetes mellitus with stage 3b chronic kidney disease, with long-term current use of insulin ([facility]) Anxiety state Sacroiliitis, not elsewhere classified ([facility]) DM peripheral angiopathy ([facility]) Morbid (severe) obesity due to excess calories ([facility]) Iron deficiency Hydronephrosis of right kidney VRE (vancomycin-resistant Enterococci) infection Body mass index (BMI) of 45.0 to 49.9 in adult ([facility]) Current Outpatient Medications Medication Sig Dispense [...] Units under the skin every evening. Per [facility] pharmacist) 60 mL 3 Triamcinolone [...] TABLET BY MOUTH ONCE DAILY IN THE [id number] Tablet 1 traMADol HCl 50 MG Oral [...] Dexcom G7 Sensor Use as directed. (From [facility]) BD Pen Needle Short U/F 31G [...] not known Perforation of intestine ([facility]) 1996 COLON -- 1996 Pneumonia in aspergillosis(484.6) 09/14/2009 Recurrent deep vein thrombosis (DVT) of both lower extremities ([facility]) 01/07/2022 Sleep apnea, obstructive Spinal stenosis of lumbar region without neurogenic claudication 07/15/2020 Spontaneous pneumothorax 09/14/2009 Statin intolerance 07/16/2014 Type 2 diabetes mellitus with hemoglobin A1c goal of less than 8.0% ([facility]) 01/07/2022 Past Surgical History: Procedure Laterality Date ARTHROPLASTY KNEE TOTAL Right 07/24/2014 R COLONOSCOPY, DIAGNOSTIC (RECTUM) 02/18/2016 normal, repeat 10 yrs/[facility] COLONOSCOPY, GI REFERRAL OP 01/28/2006 diverticulosis--repeat 10 years INCISION OF [place]DP[place], PLANNED 06/03/2011 TRACHEOSTOMY PLANNED performed by DANNY HOLDER at OR [facility] INJECT DX/THER SUBSTANCE INTERLAMINAR LUMBAR/SACRAL W IMAGE GUIDE 05/26/2020 INJECTION SPINE LUMBAR OR SACRAL performed by Raj Ahn, DO at OR [facility] INJECT DX/THER SUBSTANCE INTERLAMINAR LUMBAR/SACRAL W IMAGE GUIDE 05/14/2021 INJECTION SPINE LUMBAR OR SACRAL performed by Raj Callum Coualejandras, DO at OR [facility] INJECT DX/THER SUBSTANCE INTERLAMINAR LUMBAR/SACRAL W IMAGE GUIDE 08/13/2021 INJECTION SPINE LUMBAR OR SACRAL performed by Zion Callum Coualejandras, DO at OR [facility] KNEE ARTHROSCOPY/DEBRIDEMENT 07/27/[address] PERMANENT GASTROSTOMY TUBE 09/06/2009 GASTROSTOMY WITH CONSTUCTION GASTRIC TUBE performed by AMADOU NUNEZ at [facility] REMOVAL OF THYROID GLAND 06/15/2011 THYROIDECTOMY INCLUDING SUBSTERNAL THYROID CERVICAL APPROACH performed by DANNY HOLDER at [facility] REMOVE GALLBLADDER 09/06/2009 CHOLECYSTECTOMY performed by AMADOU NUNEZ at [facility] REPAIR RECURRENT INCISIONAL HERNIA 09/26/1998 REVISION OF COLOSTOMY, SIMPLE 09/26/1997 SACROILIAC JOINT INJECT W/GUIDANCE 07/28/2020 INJECTION SACROILIAC JOINT performed by Zion Callum Ahn, DO at OR [facility] SACROILIAC JOINT INJECT W/GUIDANCE 03/03/2022 INJECTION SACROILIAC JOINT performed by Zion Callum Ahn, DO at OR [facility] SACROILIAC JOINT INJECT W/GUIDANCE 05/04/2023 INJECTION SACROILIAC JOINT [facility] SUTURE, LARGE INTESTINE W/COLOSTOMY 09/26/1996 perforation R colon with colostomy TRANSCATH STENT-CAROTID ARTERY, W/EMBOL PROTECTION Right 09/06/2023 Dr. Tang VENA CAVA FILTER/LIGATION/CLIP 08/19/2009 [place] filter placement through the right femoral 08/19/[address] Lerma at [facility] Review of patient's allergies indicates: Allergen [...] adjustment per MTM ILD (interstitial lung disease) ([facility]) Moderate episode of recurrent major depressive disorder ([facility]) Decrease Duloxetine to 60 mg daily to decreased renal function Postsurgical hypothyroidism Continue Levothyroxine ELISSA (obstructive sleep apnea) History of pulmonary embolus (PE) Restless legs syndrome Decrease Gabapentin 300 mg two times as day Gastroesophageal reflux disease with esophagitis without hemorrhage Continue Omeprazole Hyperparathyroidism, secondary renal ([facility]) Spinal stenosis of lumbar region without neurogenic claudication Atherosclerosis of [place] coronary artery of [place] heart without angina pectoris Primary osteoarthritis of both knees - traMADol HCl 50 MG Oral Tablet (Ultram); Take 1 Tablet by mouth every 8 hours as needed for Pain,Severe. Fibromyalgia - Gabapentin 300 MG Oral Capsule (Neurontin); Take 1 Capsule by mouth in the morning and 1 Capsulebefore bedtime. Other orders - COVID-19, MRNA-LNP, PF, 24-25, 30MCG/0.3ML, IM, 12YRS AND ABOVE ([employer]) Urinary frequency - URINALYSIS, POINT OF CARE (ENTER/EDIT) - CULTURE, URINE, QUANTITATIVE; Future; Expected date: 07/31/2024 I have reviewed the patients controlled substance dispensing history in the Prescription Drug Monitoring Program in compliance with the [facility] regulations before prescribing a controlled substance. [...] Nephrology, [facility] [address] [place] [address] Erik Lenz MD [address] [place] [address] 01/15/2025 1:30 PM EDT Office Visit Cardiology, [facility] 132 [facility] [place] [address] Marjorie Powell PA-C 132 [facility] [place] [address] 02/19/2025 1:00 PM EDT Nurse Only Family Practice 65 [facility] [place] [address], [place] [phone] Shira De La Rosa, LEXI 293 [place] [phone] 06/13/2025 1:30 PM EDT Imaging Radiology [address] 132 [facility] [place] [address] Pending Results Name Type Priority Associated Diagnoses [...] Additional history exists CKD PHOS USE SMARTSET 89169 12/26/2024 04/0 10/2023, 02/11/2023, 01/07/2022, Additional history exists Adult Wellness Visit 02/13/2025 02/14/2024, 08/05/20 22 Mammogram 06/12/2025 06/12/2024, 05/27, 04/21/2023, Additional history exists CKD HGB USE SMARTSET 83199 06/26/202506/26, 06/26/2024, 05/18/2024, Additional history exists Diabetic [...] lumbar region, without neurogenic claudication Atherosclerosis of [place] coronary artery of [place] heart without angina pectoris Primary osteoarthritis of both knees Primary localized osteoarthrosis, lower leg Fibromyalgia Mylagia and myositis, unspecified Urinary frequency Screening mammogram for breast cancer documented in this encounter Advance Directives Documents on File Type Date Recorded Patient Device Processing Engineer Expl anation POLST 03/19/2020 4:25 PM [...] (no specific identity) Health Care Power of Cutting Supervisor Princess Allen Other - (no specific identity) Health Care Power of Cutting Supervisor Care Teams Bilingual Account Manager Relationship Specialty Start Date End Date Galdino Andujar DO [address] [place] [address] PCP - General Internal Medicine 03/08/24 documented as of this encounter
--- OUTSIDE RECORDS SUMMARY | 2024-12-09 19:31 | External Medical Summary | Summary of Care ---
Author Name Unknown Organization [facility] Address [address] [place] [address] Phone [phone] Care Team Providers Care [facility] Director Name Role Phone Galdino Andujar DO Primary Care Provider Reason for Visit * Reason Comments Dosage Adjustment In Person (Anticoag Cl inic) Diabetes Follow-Up Encounter Details Date Type Department Care Team (Late st Contact Info) Description 07/31/2024 3:00 PM EST Office Visit Family Practice [address] [facility] [address] [place] [address] [place], Pharmacist [address] [address] Type 2 diabetes mellitus with stage 3b [...] End Date Status VALENTINATOGRABIEL [facility]IS[facility]AS LANCETS [facility] [place] Check blood sugars 3-4 [...] of 7.0%-8.0% ([facility]) Inject 8 units with breakfast and 8units lunch and 10 units with dinner + sliding scale 1 units for every 25 units BG > 150. 150 mL 3 05/16/2023 Active Dexcom G7 Sensor Use as directed. (From [facility]) 06/01/2023 Active BD Pen Needle Short [...] goal of 7.0%-8.0% ([facility]) INJECT 50 UNITS UNDER THE SKIN IN THE EVENING 60 mL 3 08/04/2023 Active Additional Information Patient taking differently: 41 Units Subcutaneous DAILY(1900), Per [facility] pharmacist, Reported on 06/29/2024 Atorvastatin Calcium 20 [...] has rx for atorvastatin and plavix to knot picker cloth at pharmacy. 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 Atherosclerosis of [place] co ronary artery without angina pectoris 12/31/2021 [...] Assessment & Plan: Home PT to start [place] filter in place 08/19/2014 History of pulmonary [...] rx evidently given by vascular, has to knot picker cloth rx documented as of this encounter (statuses [...] mRNA, LNP-s, No Pre serve, 2-Dose Series (NewsBreak) 01/08/2021,12/18/2020 COVID-19, LNP-s, No Preserve , Navarro-sucrose, Ages 12+ (Pfizer) 2022,10/01/2021 COVID-19, MRNA-LNP, PF, 30 M CG/0.3 mL, 12 YRS AND ABOVE, IM [facility] 07/31/2024,07/26/2023 Pneumococcal Conjugate Vacci ne, 20-valent ([id number]) 03/12/2022 Pneumococcal Polysaccharide PPV23 (Pneumovax) 08/22/2009,06/15/2006 RSV [...] Progress Notes * Brookecesar Ad, Frances Valle, [facility] - 07/31/2024 2:42 PM EST Images from [...] use of insulin ([facility]) E11.22 N18.32 Z79.4 BG Readings [...] MEDICATION CHANGES: yes, see below; preferred pharmacy: [facility] Diabetic Medications: Decrease Novolog - 8 units [...] performance of separately billed services. Frances Huerta [facility] Clinical Pharmacist - [facility] 07/31/2024, 2:42 PM documented in this encounter Plan of Treatment Upcoming Encounters Date Type Department Care Team (Late st Contact Info) Description 09/12/2024 11:00 AM EST Office Visit Nephrology, [facility] [address] [place] [address] Erik Lenz MD [facility] [place] [address] 01/15/2025 1:30 PM EDT Office Visit Cardiology, [facility] [address] [facility] [place] [address] Marjorie Powell, FARHAD-C 132 [facility] [place] [address] 02/19/2025 1:00 PM EDT Nurse Only Family Practice 65 [facility] [place] [address] [facility], [place] [address] Shira De La Rosa, LEXI [address] [facility], [place] [address] 06/13/2025 1:30 PM EDT Imaging Radiology [facility] [address] [facility] [address] [facility] [place] [id number] Scheduled Procedures Name Priority Associated Diagnoses Date/Ti [...] Additional history exists CKD PHOS USE SMARTSET 90501 12/26/2024 04/0 10/2023, 02/11/2023, 01/07/2022, Additional history exists Adult Wellness Visit 02/13/2025 02/14/2024, 08/05/20 Mammogram 06/12/2025 06/12/2024, 05/27, 04/21/2023, Additional history exists CKD HGB USE SMARTSET 76074 06/26/202506/26, 06/26/2024, 05/18/2024, Additional history exists Diabetic [...] Documents on File Type Date Recorded Patient Party Host Expl anation POLST 03/19/2020 4:25 PM POLST [...] (no specific identity) Health Care Power of Knit Tubing Dyer Princess Staplesfany Other - (no specific identity) Health Care Power of [employer] Care Teams [facility] Director Relationship Specialty Start Date End Date Galdino Andujar DO [address] [place] [address] PCP - General Internal Medicine 03/08/24 documented as of this encounter
--- NOTE | 2024-12-09 19:32 | Emergency Department Note ---
Impression & Plan Complicated urinary tract infection, Leukocytosis, Acute kidney injury superimposed on chronic kidney disease, Bilateral flank pain ED Provider Note HISTORY OF PRESENT ILLNESS: Patient is a 69-year-old female presenting with abdominal pain and urinary frequency. Patient reports that symptoms started 6 days ago. She had 2 urine cultures done by her doctor which were both negative. Reports that she has pain in the bilateral lower abdomen that seems to radiate up her bilateral flanks. She states nausea but denies any vomiting or diarrhea. Denies any fevers but reports cold chills. Denies any chest pain or shortness of breath. She reports numerous abdominal surgeries, including a cholecystectomy and having a perforated colon. She reports has been taking tramadol with little relief in her symptoms. She was given 50 mcg IV fentanyl prehospital with EMS. Patient denies any dysuria, she reports she just feels like she constantly has to go to the bathroom. ROS: as above PHYSICAL EXAM: Constitutional: Patient appears in no acute distress. HENT: Head: Normocephalic and atraumatic. Eyes: EOMI, PERRL Mouth/Throat: Mucous membranes moist. Neck: Trachea midline. Neck supple. Cardiovascular: RRR, No murmurs, rubs or gallops. Intact distal pulses. Pulmonary/Chest: No respiratory distress. Breath sounds clear and equal bilaterally. No wheezes or rales. Abdominal: Abdomen soft, no rebound or guarding. Diffuse tenderness to palpation. Musculoskeletal: No edema, tenderness or deformity noted. Skin: Warm and dry. No rash, erythema, pallor or cyanosis Psychiatric: Appropriate mood and affect for situation. Neurological: Alert and keenly responsive. CN II-XII grossly intact, moving all extremities equally and fully. MDM: - Vitals signs showed tachycardia - History obtained via patient. History as above. - Chronic conditions affecting care: DM-2; chronic hypoxic respiratory failure (on 2L NC); CHF; cor pulmonale; CKD stage 3 (baseline CK 1.6); HTN; HLD; recurrent DVT (s/p IVC filter) - Differential diagnoses include, but are not limited to: UTI; pyelonephritis; ureteral stone; appendicitis; small bowel obstruction - Order placed for continuous cardiac monitoring. At this time, monitor showed rate of 93 bpm with normal sinus rhythm, per my interpretation. - External medical records reviewed. Discharge summary dated 01/25/2024 was reviewed. Patient was admitted that time for right-sided pyelonephritis and a complicated UTI causing sepsis and bacteremia. - Laboratory workup interpreted by myself showed leukocytosis (WBC 12.28) with neutrophil predominance; stable electrolytes; ELSIE on CKD (Cr 1.98 - baseline around 1.6); normal lactate; normal lipase; normal procalcitonin - Blood cultures obtained - Patient given 2g IV rocephin. - Given 1500 cc NS in ER. Patient sepsis fluid volume calculation based on ideal body weight is 1704.3 mL. She was only given 1500 cc of fluid, given that she has a history of CHF. Her last EF as of July 14, 2023 was 55 to 59%. - Urine culture from 01/17/2024 was reviewed. Patient grew VRE that is anderson resistant. - Due to above, daptomycin ordered. - CT abdomen/pelvis wo contrast negative for acute abnormality. Noted to have a right-sided double-J stent in good position with moderate dilatation of the right renal pelvis similar to previous. - Discussion was had with case management associate about patient's case and need for admission - Hospitalist, Dr. Montes, consulted for admission - Patient admitted to [facility]ist service for further evaluation and management. ASSESSMENT AND PLAN: Diagnosis: Complicated UTI; leukocytosis; ELSIE on CKD; bilateral flank pain Plan: Admit Past Med/Surg History Problem List (Updated 12/09/24 @ 21:32 by Chloe Breen MD) Bilateral flank pain (Acute) Acute kidney injury superimposed on chronic kidney disease (Acute) Leukocytosis (Acute) Complicated urinary tract infection (Acute) Ureteral stent retained Acute UTI (urinary tract infection) (Acute) Following with urology Arthralgia (Acute) Fatigue (Acute) UPJ obstruction, acquired Left knee DJD Ambulatory dysfunction Fall (Acute) Hematuria Hydronephrosis (Acute) Polypharmacy Hypoglycemia Chronic respiratory failure Urinary frequency (Acute) Lumbago with sciatica Lower extremity pain, bilateral Major depression, recurrent Sciatica (Acute) Non compliance w medication regimen Chronic diastolic heart failure Multiple falls Subclavian artery stenosis Cerebrovascular duplex study 06/2023: Retrograde flow in the right vertebral artery. 50-69% proximal right subclavian artery stenosis. Antegrade flow in the left vertebral artery. Normal flow in the left subclavian artery. Carotid stenosis, right Cerebrovascular duplex 07/11/23: 80-99% R ICA stenosis. No hemodynamically significant stenosis in the LICA. Left radial head fracture Obesity hypoventilation syndrome Pickwickian syndrome Generalized body aches Weakness (Acute) Orthostasis (Acute) Hip pain, right (Acute) Knee pain, right (Acute) Abdominal pain (Acute) Acute on chronic kidney failure (Acute) Per urology records Per records elevated creatinine stable since 12/2023 CKD (chronic kidney disease), stage III (Chronic) Follows with [facility] Hypomagnesemia (Acute) CHF (congestive heart failure) (Acute) Hepatosplenomegaly (Acute) ELISSA on CPAP (Chronic) CPAP + 3L O2 (O2 is continuous) HTN (hypertension) (Chronic) HLD (hyperlipidemia) (Chronic) Morbid obesity (Chronic) 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 50-69% proximal right subclavian artery stenosis. Antegrade flow in the left vertebral artery. Normal flow in the left subclavian artery. Hx of pulmonary edema Pickwickian syndrome Orthostasis Lumbago with sciatica Left knee DJD Hx of hydronephrosis Hyperlipemia Hypertension HIT (heparin-induced thrombocytopenia) (2008) - [facility] then life flight to [place] > "resolved" Deep vein thrombosis (DVT) Recurrent per records On Eliquis Initially occurred during ICU [place] admission, s/p zoraida filter [address] Right LE doppler 11/2023 showed no DVT within right LE Hepatosplenomegaly Hx of fracture radius Depression with anxiety Chronic diastolic (congestive) heart failure follos with Dr[facility] 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) VRE UTI during inpatient admit at [facility] Hx of Clostridium difficile infection (12/2023) during inpatient admit to [facility], treated, no current sx Hx of constipation Hx of vertigo occasional Hx: UTI (urinary tract infection) frequent Hx of fall (11/2023) last fall was November 2023 - no injuries Diabetes IDDM ELISSA on CPAP CPAP + 3L O2 (O2 is continuous) Hx of septic shock (12/2023) due to UTI - admit to [facility] Presence of IVC filter (2008) [facility], continues to be in place due to current clots behind right knee Hx pulmonary embolism (2008) s/p zoraida filter GERD (gastroesophageal reflux disease) RLS (restless legs syndrome) History of pneumonia (2008) x 8 weeks, [facility] then tx to [facility], "put me in a coma, flew me to [facility], had a trach then went to jail with trach" Trach removed Sep 2009 Fibromyalgia Hypothyroidism Hx of pyelonephritis (12/2023) CKD (chronic kidney disease), stage III follows [facility] Nephrology Hx of congestive heart failure takes prabhu puentes Dr. Chronic hypoxemic respiratory failure O2 3-4L at all times - sees Pulm @ [facility] - [facility] Figueredo Transient hypotension Mitral valve stenosis Mild per cardio records (due to severe calcification) Echo 06/2023: Borderline mild mitral stenosis secondary to severe mitral annular calcification, follows [facility] cardio Dr. Woodall Cataract, bilateral Neuropathy feet On home oxygen therapy 3-4L continuous Surgical History History of colon resection (2008) secondary to R colon perforation, resected treated with colostomy and eventual reversal in 2008 Hx of tracheostomy (06/2009) (per [facility] records), secondary to acute respiratory failure in setting of PNA, reversed a few months later in 2009 Hx of cystoscopy (11/25/23) with stent placement right side due to infection History of transcarotid artery revascularization (TCAR) (08/2023) right, [facility] History of right knee joint replacement (Unknown) > 10 years Hx laparoscopic cholecystectomy Hx of thyroidectomy (2011) total Family history of reaction to anesthesia Brother/niece- PONV Brother- "wakes up violent" History of colostomy reversal (10/1997) History of tooth extraction History of arthroscopy (Unknown) left ankle , > 10 years History of incisional hernia repair Nausea and vomiting after administration of anesthetic agent History of colonoscopy Family History Father , age 74 Lung cancer Mother , age 45 Cirrhosis Social History (System 02/27/24 @ 10:35 by Kriss Trevizo) Smoking Status: Former smoker Tobacco Type: Cigarettes Cigarettes Per Day: 1996; Second Hand Exposure: No; Do You Dip or Chew Tobacco: No; Hx Alcohol Use: No Hx Substance Use: No Preferred Language: Polish Communication Ability: Effective Land Examiner Required: No Beliefs That Will Affect Care: None marital status: Single Current Living Situation: Alone Current Living Situation Comment: Lives by self in apartment How many Children do You have: 0 Feels Safe at Home: Yes Assistive Devices: Cane, Glasses, Oxygen - at Night, Oxygen - Continuous, Scooter/Electric Scooter and Walker Allergies Allergies Allergy/AdvReac Type Severity Reaction Status Date / Time morphine Allergy Severe Swelling, Verified 04/26/24 07:00 "Violent reaction- almost " dapagliflozin [From Farxiga] Allergy Intermediate Yeast Verified 04/26/24 07:00 infections tetanus toxoid, adsorbed Allergy Intermediate Passed Verified 04/26/24 07:00 out, "got sick" as child bupropion [From Wellbutrin] AdvReac Intermediate Recurrent Verified 04/26/24 07:00 falls as per patient codeine AdvReac Intermediate Hallucinati Verified 04/26/24 07:00 ons empagliflozin AdvReac Intermediate Yeast Verified 04/26/24 07:00 [From Jardiance] infections heparin AdvReac Intermediate HIT, Verified 04/26/24 07:00 "Fluid in lungs" hydrocodone [From Vicodin] AdvReac Intermediate Drowsy Verified 04/26/24 07:00 Home Meds Home Medications Medication Instructions Recorded Confirmed aspirin 81 mg tablet,delayed 81 mg PO QAM 09/20/23 12/09/24 release clonazepam 0.5 mg tablet 0.5 mg PO TID 09/20/23 12/09/24 furosemide 40 mg tablet 60 mg PO BID 09/20/23 12/09/24 insulin aspart U-100 100 unit/mL 8 unit subcut UD 09/20/23 04/26/24 (3 mL) subcutaneous pen (Novolog FlexPen U-100 Insulin aspart) magnesium oxide 400 mg (241.3 mg 400 mg PO BID 09/20/23 12/09/24 magnesium) tablet omeprazole 20 mg capsule,delayed 20 mg PO QAM 09/20/23 12/09/24 release potassium chloride 20 mEq 20 meq PO BID 09/20/23 12/09/24 tablet,extended release(part/cryst) ropinirole 2 mg tablet 2 mg PO HS 09/20/23 12/09/24 sennosides 8.6 mg-docusate sodium 1 tab PO BID 09/20/23 04/26/24 50 mg tablet (Senna-Time S) tramadol 50 mg tablet 50 mg PO Q8 PRN Pain 09/20/23 12/09/24 apixaban 2.5 mg tablet (Eliquis) 2.5 mg PO BID 10/24/23 12/09/24 dicyclomine 20 mg tablet 20 mg PO QID PRN abdominal cramping 10/24/23 12/09/24 triamcinolone acetonide 0.5 % 1 applic topical BID PRN chest rash 10/24/23 04/26/24 topical cream cholecalciferol (vitamin D3) 25 25 mcg PO DAILY 01/16/24 12/09/24 mcg (1,000 unit) tablet clopidogrel 75 mg tablet 75 mg PO QAM 01/16/24 12/09/24 duloxetine 60 mg capsule,delayed 60 mg PO QAM 12/09/24 12/09/24 release fluticasone propionate 50 2 spray intranasal AMHS 12/09/24 12/09/24 mcg/actuation nasal spray,suspension gabapentin 300 mg capsule 300 mg PO AMHS 12/09/24 12/09/24 insulin degludec 100 unit/mL (3 38 unit subcut QPM 12/09/24 12/09/24 mL) subcutaneous pen (Tresiba FlexTouch U-100 insulin) rosuvastatin 5 mg tablet 5 mg PO QAM 12/09/24 12/09/24 tirzepatide 7.5 mg/0.5 mL 7.5 mg subcut WK 12/09/24 12/09/24 subcutaneous pen injector (Kevan) tizanidine 4 mg tablet 4 mg PO Q6 PRN Muscle Spasm 12/09/24 12/09/24 trazodone 50 mg tablet 50 mg PO HS 12/09/24 12/09/24 Previous Rx's Medication Instructions Recorded levothyroxine 200 mcg tablet 200 mcg PO DAILYBB #30 tabs 12/07/23 Results & Data (ED) Vital Signs Vital Signs - 24 hr 12/09/24 19:25 12/09/24 19:33 12/09/24 21:00 Temperature 36.9 C Temperature Source Oral Pulse Rate 96 H 93 H Pulse Rate [Finger] 91 H Respiratory Rate 20 18 Blood Pressure 102/64 Blood Pressure [Right Arm] 133/79 Blood Pressure Mean 76 Blood Pressure Mean [Right Arm] 97 Pulse Oximetry 94 96 Oxygen Delivery Method Nasal Cannula Nasal Cannula Oxygen Flow Rate 2 2 Sepsis Recent Fever Within 48 Hours No Sepsis New/Unexplained Change in Mental Status No Sepsis Action Taken by Nursing No Action Required 12/09/24 22:18 Temperature Temperature Source Pulse Rate Pulse Rate [Finger] 91 H Respiratory Rate 14 Blood Pressure Blood Pressure [Right Arm] 166/91 H Blood Pressure Mean Blood Pressure Mean [Right Arm] 116 Pulse Oximetry 97 Oxygen Delivery Method Room Air Oxygen Flow Rate Sepsis Recent Fever Within 48 Hours Sepsis New/Unexplained Change in Mental Status Sepsis Action Taken by Nursing Laboratory Data 12/09/24 19:32 12/09/24 19:32 Lab Results 12/09/24 Range/Units 19:32 WBC 12.28 H (4.8-10.8) K/ul RBC 4.15 L (4.20-5.40) M/uL Hgb 12.0 (12.0-16.0) g/dl Hct 38.5 (37.0-47.0) % MCV 92.8 (80.0-100.0) fL MCH 28.9 (25.0-34.0) pg MCHC 31.2 L (32.0-36.0) g/dL RDW Std Deviation 46.5 H (36.4-46.3) fL RDW Coeff of Adolfo 13.6 (11.5-14.5) % Plt Count 351 (130-400) K/uL MPV 9.5 (9.4-12.4) fL Immature Gran % (Auto) 0.7 % Neut % (Auto) 73.3 % Lymph % (Auto) 16.9 % [place] % (Auto) 5.9 % Eos % (Auto) 2.7 % Baso % (Auto) 0.5 % Neut # (Auto) 9.01 H (1.40-6.50) K/uL Lymph # (Auto) 2.07 (1.20-3.40) K/uL [place] # (Auto) 0.72 H (0.11-0.59) K/uL Eos # (Auto) 0.33 (0.00-0.50) K/uL Baso # (Auto) 0.06 (0.00-0.20) K/uL Immature Gran # (Auto) 0.09 (0.01-0.20) K/uL Sodium 138 (136-145) mmol/L Potassium 3.8 (3.5-5.1) mmol/L Chloride 95 L (98-107) mmol/L Carbon Dioxide 36 H (21-32) mmol/L Anion Gap 7 (3-11) BUN 33 H (6-23) mg/dl Creatinine 1.98 H (0.6-1.2) mg/dl Est Cr Clr Drug Dosing 36.4 ml/min eGFR 26.87 BUN/Creatinine Ratio 16.7 (10-20) Glucose 159 H (70-99(Fasting)) mg/dl Lactate 1.4 (0.4-2.0) mmol/L Calcium 9.3 (8.6-10.3) mg/dl Total Bilirubin 0.3 (0.2-1.0) mg/dl AST 11 L (13-39) U/L ALT 6 L (7-52) U/L Alkaline Phosphatase 104 (34-104) U/L Total Protein 7.7 (6.0-8.3) gm/dl Albumin 3.9 (3.4-5.0) gm/dl Globulin 3.8 (2.5-4.0) gm/dl Albumin/Globulin Ratio 1.0 (0.9-2) Lipase 15 (11-82) U/L Procalcitonin 0.03 (0-0.5) ng/ml Urine Color Yellow Urine Appearance Cloudy A (Clear) Urine pH 8.0 H (4.5-7.5) Ur Specific [place] 1.008 (1.000-1.030) Urine Protein 1+ H (Negative) Urine Glucose (UA) Negative (Negative) Urine Ketones Negative (Negative) Urine Blood 3+ H (Negative) Urine Nitrite Negative (Negative) Urine Bilirubin Negative (Negative) Urine Urobilinogen Negative (Negative) Ur Leukocyte Esterase 3+ H (Negative) Urine WBC (Auto) >50 H (0-5) /hpf Urine RBC (Auto) >20 H (0-2) /hpf U Hyaline Cast (Auto) 3-5 H (0-2) /lpf U Epithel Cells (Auto) 0-2 (0-2) /hpf Urine Bacteria (Auto) 2+ H (None Seen) Administered Medications Discontinued Medications Fentanyl Citrate (Fentanyl Citrate Pf 100 Mcg/2 Ml Vial) 50 mcg IV NOW STA Stop: 12/09/24 21:24 Last Admin: 12/09/24 21:41 Dose: 50 mcg Documented By: STEFANY Sodium Chloride (Nss) 1,000 mls @ 999 mls/hr IV .Q1H1M ONE Stop: 12/09/24 21:09 Last Infusion: 12/09/24 22:18 Dose: Infused Documented By: Admin: 12/09/24 20:59 Dose: 999 mls/hr Documented By: STEFANY Ceftriaxone Sodium (Rocephin) 2,000 mg in 50 mls @ 100 mls/hr IV NOW STA Stop: 12/09/24 20:38 Last Infusion: 12/09/24 21:38 Dose: Infused Documented By: Admin: 12/09/24 20:59 Dose: 100 mls/hr Documented By: STEFANY Sodium Chloride (Nss) 500 mls @ 999 mls/hr IV .Q31M ONE Stop: 12/09/24 21:55 Last Infusion: 12/09/24 22:19 Dose: Infused Documented By: Admin: 12/09/24 21:42 Dose: 999 mls/hr Documented By: STEFANY Daptomycin 850 mg/ Syringe 17 mls @ 8.5 mls/min IV NOW ONE; Protocol Stop: 12/09/24 22:01 Last Admin: 12/09/24 22:25 Dose: 8.5 mls/min Documented By: MIGUEL Imaging Data Radiologist's Impression: Abdomen/Pelvis CT 12/09/24 20:32 Exam(s): CT ABDOMEN + PELVIS Without Contrast EXAM: CT Abdomen and Pelvis Without Intravenous Contrast CLINICAL HISTORY: Reason for exam: bilateral flank pain. TECHNIQUE: Axial computed tomography images of the abdomen and pelvis without intravenous contrast. CTDI is 28.14 mGy and DLP is 1387.25 mGy-cm. Automated exposure control was utilized for the study. A dose lowering technique was utilized adhering to the principles of ALARA. COMPARISON: January 16, 2024 FINDINGS: Lung bases: Mild fibrotic changes in the lung bases. No consolidation. ABDOMEN: Liver: The liver is mildly enlarged is a 19.2 cm. No focal liver mass lesion is seen. Gallbladder and bile ducts: Previous cholecystectomy. No biliary duct dilation or choledocholithiasis is seen. Pancreas: Unremarkable. No ductal dilation. Spleen: Unremarkable. No splenomegaly. Adrenals: Unremarkable. No mass. Kidneys and ureters: Unremarkable. No obstructing stones. No hydronephrosis. Stomach and bowel: There is a 5 cm right paracentral anterior abdominal wall hernia containing a short segment of colon. No signs of acute inflammation or obstruction. No mucosal thickening. PELVIS: Appendix: No findings to suggest acute appendicitis. Bladder: Unremarkable. No stones. Reproductive: Unremarkable as visualized. ABDOMEN and PELVIS: Intraperitoneal space: Bowel loops are nondilated. No pneumoperitoneum, free fluid, or acute inflammatory changes are seen involving the bowel. Bones/joints: Moderate multilevel degenerative changes throughout the spine. No acute fracture or subluxation. Soft tissues: See above. Vasculature: The abdominal aorta is severely calcified. There is no aneurysm. This is a noncontrast study. There is at least 40% stenosis due to calcified plaque. There is an IVC filter in standard position. Lymph nodes: Unremarkable. No enlarged lymph nodes. Tubes, lines and devices: There is a right-sided double-J ureteral stent in good position. There is moderate dilation of the right renal pelvis measuring 4.2 cm transverse, similar to previous. No surrounding edema is seen. IMPRESSION: 1. There is a 5 cm right paracentral anterior abdominal wall hernia containing a short segment of colon. No signs of acute inflammation or obstruction. 2. There is a right-sided double-J ureteral stent in good position. There is moderate dilation of the right renal pelvis measuring 4.2 cm transverse, similar to previous. No surrounding edema is seen. 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 Some component of stent dysfunction cannot be excluded. 3. Bowel loops are nondilated. No pneumoperitoneum, free fluid, or acute inflammatory changes are seen involving the bowel. Electronically signed by: Zia Duncan MD 12/09/24 22:37 PM Discharge Plan Visit Data Chief Complaint: Flank Pain Stated Complaint: BILATERAL FLANK PAIN, POSS. KIDNEY STONES ED Provider: Chloe Breen Discharge Problem: Complicated urinary tract infection, Leukocytosis, Acute kidney injury superimposed on chronic kidney disease, Bilateral flank pain Forms Stand Alone Forms: My [facility] Prescriptions Prescriptions: No Action clonazepam 0.5 mg tablet 0.5 mg PO TID sennosides-docusate sodium [Senna-Time S] 8.6-50 mg tablet 1 tab PO BID aspirin 81 mg tablet,delayed release (DR/EC) 81 mg PO QAM tramadol 50 mg tablet 50 mg PO Q8 PRN (Reason: Pain) potassium chloride 20 mEq tablet,ER particles/crystals 20 meq PO BID magnesium oxide 400 mg (241.3 mg magnesium) tablet 400 mg PO BID ropinirole 2 mg tablet 2 mg PO HS omeprazole 20 mg capsule,delayed release(DR/EC) 20 mg PO QAM furosemide 40 mg tablet 60 mg PO BID Rx Instructions: 1 & 1/2 tablet in the morning and @ noon insulin aspart U-100 [Novolog FlexPen U-100 Insulin] 100 unit/mL (3 mL) insulin pen 8 unit SUBCUT UD Rx Instructions: 8units with breakfast and lunch and 10units with dinner and sliding scale correction triamcinolone acetonide 0.5 % cream 1 applic TOPICAL BID PRN (Reason: chest rash) dicyclomine 20 mg tablet 20 mg PO QID PRN (Reason: abdominal cramping) Eliquis 2.5 mg tablet 2.5 mg PO BID levothyroxine 200 mcg tablet 200 mcg PO DAILYBB Qty: 30 0RF Rx Instructions: Reduced to 200meq daily while admitted trazodone 50 mg tablet 50 mg PO HS tizanidine 4 mg tablet 4 mg PO Q6 PRN (Reason: Muscle Spasm) gabapentin 300 mg capsule 300 mg PO AMHS duloxetine 60 mg capsule,delayed release(DR/EC) 60 mg PO QAM fluticasone propionate 50 mcg/actuation spray,suspension 2 spray INTRANASAL AMHS rosuvastatin 5 mg tablet 5 mg PO QAM Mounjaro 7.5 mg/0.5 mL pen injector 7.5 mg SUBCUT WK Rx Instructions: insulin degludec [Tresiba FlexTouch U-100] 100 unit/mL (3 mL) insulin pen 38 unit SUBCUT QPM cholecalciferol (vitamin D3) 25 mcg (1,000 unit) Tablet 25 mcg PO DAILY clopidogrel 75 mg tablet 75 mg PO QAM Referrals Referrals: Galdnio Andujar, [Primary Care Provider] -
--- OUTSIDE RECORDS SUMMARY | 2024-12-09 19:32 | External Medical Summary | Summary of Care ---
Author Name Unknown Organization [facility] Address [address] [place] [address] Phone [phone] Care Team Providers Care Live Truck Technician Name Role Phone Galdino Andujar DO Primary Care Provider [phone] Reason for Visit * Reason Comments Follow Up Encounter Details Date Type Department Care Team (Late st Contact Info) Description 07/17/2024 1:30 PM EDT Office Visit Cardiology, [facility] [address] [place] [address] Marjorie Powell PA-C [address] [place] [address] Chronic heart failure with preserved ejection fraction (HCC)*; Dyslipidemia, goal LDL below 70; 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 3b chronic kidney disease (HCC); Chronic hypoxemic respiratory failure (HCC); Nonrheumatic mitral valve stenosis Allergies Active Allergy Reactions Criticality Noted Date [...] as of this encounter (statuses as of 07/17/2024) Medications Medication Sig Dispensed Refills Start Date End Date Status DEMIAN CHANDRA 33G [facility] [place] blood sugars 3-4 times [...] taking differently: 41 Units Subcutaneous DAILY(1900), Per [facility] pharmacist, Reported on 06/29/2024 Atorvastatin Calcium [...] case of dexcom failure 100 Strip 11 02/02/2024 Active Magnesium Oxide 400 MG Oral TabletIndications: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, NYHA class 1 and CKD stage 3 ([facility]),Chronic diastolic congestive heart failure (HCC) TAKE 1 TABLET BY MOUTH IN THE MORNING AND AT BEDTIME 60 Tablet 02/22/2024 Active rOPINIRole HCl 2 MG Oral Tablet (Requip)Indications :Restless legs syndrome TAKE 1 TABLET BY MOUTH AT BEDTIME 30 Tablet 02/22/2024 Active Levothyroxine Sodium 200 MCG Oral Tablet (Levoxyl)Indication s:Postsurgical hypothyroidism Take 1 Tablet by mouth daily first thing in the morning. (at least 30 min prior to breakfast or other meds) 30 Tablet 02/24/2024 Active Senna-Time S 8.6-50 MG Oral Tablet [...] a day. 84 Tablet 5 05/17/2024 Active DULoxetine HCl 30 MG Oral Capsule Delayed Release Particles (Cymbalta)Indicatio ns:Fibromyalgia,Pete or depressive disorder, recurrent, moderate (HCC) Take 1 Capsule by mouth in the morning. 28 Capsule 5 05/17/2024 Active traZODone HCl 50 MG Oral Tablet (Desyrel) Take 1 Tablet by mouth at bedtime. 30 Tablet 5 05/24/2024 Active clonazePAM 0.5 MG Oral Tablet (KlonoPIN)Indicatio ns:Restless legs syndrome,Anxiety state TAKE 1 TABLET BY MOUTH THREE TIMES A DAY 84 Tablet 06/14/2024 Active Cholecalciferol 25 MCG (1000 UT) Oral Capsule Take 1 capsule by mouth once daily in the morning 30 Capsule 5 06/12/2024 Active Dicyclomine HCl 20 MG Oral Tablet (Bentyl)Indications :Irritable bowel syndrome, unspecified type Take 1 Tablet by mouth 4 times a day as needed for Cramping. 180 Tablet 3 06/19/2024 Active traMADol HCl 50 MG Oral Tablet (Ultram)Indications :Lumbar radiculopathy,Prima ry osteoarthritis of left knee Take 1 Tablet by mouth every 8 hours as needed for Pain, Severe. 90 Tablet 06/20/2024 Active Mounjaro 7.5 MG/0.5ML Subcutaneous Solution Pen-injector (Tirzepatide)Indica tions:Type 2 diabetes mellitus with stage 3b chronic kidney disease, with long-term current use of insulin ([facility]) Inject 7.5 mg under the skin once a week. 2 mL 11 06/26/2024 Active Ondansetron HCl 4 MG Oral Tablet (Zofran)Indications :Dizziness and giddiness Take 1 Tablet (4 mg) by mouth every 6 hours as needed for Nausea. 90 Tablet 6 07/04/2024 Active Gabapentin 300 MG Oral Capsule (Neurontin)Indicati ons:Fibromyalgia Take 1 Capsule by mouth in the morning and 1 Capsule at noon and 1 Capsule before bedtime. 07/05/2024 Active Doxycycline Hyclate 100 MG Oral Capsule Take 1 Capsule by mouth in the morning and 1 Capsule before bedtime. 03/26/2024 07/17/20 24 Discontinu ed(End of Procedure) documented as of this encounter (statuses as of 07/17/2024) Active Problems Problem Noted Date Diagnosed Date [...] by vascular, reports upcoming carotid surgery at [facility]. She states she has rx for atorvastatin and plavix to nut picker at pharmacy. Type 2 diabetes mellitus [...] induced thrombocytopenia (HIT) 2 Atherosclerosis of [place] ronary artery without angina pectoris 12/31/2021 [...] Assessment & Plan: Home PT to start [place] filter in place 08/19/2014 History of [...] rx evidently given by vascular, has to nut picker rx documented as of this encounter (statuses as of 07/17/2024) Resolved Problems Problem Noted Date Diagnosed Date [...] as of this encounter (statuses as of 07/17/2024) Immunizations Name Administration Dates Next Due COVID-19 mRNA, LNP-s, No Pre serve, 2-Dose Series (TheBlogTV) 01/08/2021,12/18/2020 COVID-19, LNP-s, No Preserve , Navarro-sucrose, Ages 12+ (Pfizer) 2022,10/01/2021 COVID-19, MRNA-LNP, 23-24, P F, 30 MCG/0.3 mL, 12 YRS AND ABOVE, IM (PFIZER-Comirnaty) 07/26/2023 Pneumococcal Conjugate Vacci ne, 20-valent ([id number]) 03/12/2022 Pneumococcal Polysaccharide PPV23 (Pneumovax) 08/22/2009,06/15/2006 RSV [...] Date Recorded PHQ Adult Total Score 10 07/16/2024 Hunger Vital Sign Answer Date Recorded Within [...] Sign Reading Time Taken Comments Blood Pressure 108/60 07/17/2024 1:20 PM EDT Pulse 84 07/17/2024 1:20 PM EDT Temperature - - Respiratory Rate 16 07/17/2024 1:20 PM EDT Oxygen Saturation 98% 07/17/2024 1:20 PM EDT 4 LPM NC Inhaled Oxygen Concentration - - Weight 121.8 kg (268 lb 8 oz) 07/17/2024 1:20 PM EDT Height - - Body Mass Index 46.45 06/26/2024 1:58 PM EDT documented in this encounter Progress Notes * Marjorie Powell PA-C - 07/17/2024 1:32 PM EDT 07/17/2024 Cardiology F/U: History of Present Illness The patient, a 69-year-old with a history of chronic heart failure, preserved EF, mild mitral stenosis, and chronic respiratory failure on chronic supplemental oxygen, presents for a routine cardiology follow-up. Last clinic evaluation approx 6 months ago with the undersigned. She reports recent recovery from a flu-like illness, characterized by a slight fever, cough, and phlegm production, which was managed with Tylenol and Mucinex. Now improved. She denies any recent chest pain and describes her breathing as 'pretty good' prior to the illness.She continues to use 4 liters of supplemental oxygen and denies any recent fluid retention or sudden swelling. The patient's weight has been decreasing, with a recent drop from 274 to 268 pounds. She reports a history of low blood pressure, which required ICU admission due to bleeding complications following a TCAR procedure. The bleeding was attributed to an excessive dose of blood thinner, as the patient is unable to take heparin. The patient's anemia has since resolved, with a recent hemoglobin level of 13.0. The patient has been taking baby aspirin (81 mg) for her carotids and atorvastatin for cholesterol.However, she stopped taking Lipitor about a month ago due to severe cramping, which has since improved. Cardiac Problems: Chronic diastolic CHF carotid artery stenosis S/P right TCAR in Aug 2023 Chronic respiratory failure on chronic home O2 DM II Hypothyroidism ELISSA on CPAP CKD III HTN Obesity History of bilateral pneumonia resulting in prolonged hospitalization complicated by pulmonary embolism status post [place] filter, also diagnosed with hit during this hospital stay and required tracheostomy Mild mitral stenosis due to severe calcification Review of Systems: See HPI for pertinent positives. All others negative, other than those noted in HPI. Patient Active Problem List Diagnosis Dyslipidemia Postsurgical hypothyroidism ELISSA (obstructive sleep apnea) Venous insufficiency Essential hypertension with goal blood pressure less than 140/90 History of pulmonary embolus (PE) [place] filter in place Fibromyalgia Abnormality of gait Restless legs syndrome Gastroesophageal reflux disease with esophagitis Controlled substance agreement signed Chronic heart failure with preserved ejection fraction (HFpEF) ([facility]) Lumbar radiculopathy 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 3b chronic kidney disease (HCC) Hyperparathyroidism, secondary renal (HCC) Vasculitis (HCC) Primary osteoarthritis of left knee Spinal stenosis of lumbar region without neurogenic claudication Heparin induced thrombocytopenia (HIT) ([facility]) Atherosclerosis of [place] coronary artery without angina pectoris Carotid artery stenosis, asymptomatic, right Encounter for long-term current use of medication Type 2 diabetes mellitus with hemoglobin A1c goal of less than 8.0% ([facility]) Recurrent deep vein thrombosis (DVT) of both lower extremities (HCC) Chronic hypoxemic respiratory failure (HCC) Chronic kidney disease, stage 3b (HCC) ILD (interstitial lung disease) ([facility]) Moderate episode of recurrent major depressive disorder ([facility]) Primary osteoarthritis of both knees Type 2 diabetes mellitus with stage 3b chronic kidney disease, with long-term current use of insulin ([facility]) Anxiety state Sacroiliitis, not elsewhere classified ([facility]) DM peripheral angiopathy ([facility]) Morbid (severe) obesity due to excess calories ([facility]) Iron deficiency Hydronephrosis of right kidney VRE (vancomycin-resistant Enterococci) infection Body mass index (BMI) of 45.0 to 49.9 in adult ([facility]) Social History Tobacco Use Smoking status: Former Current packs/day: 0.00 Average packs/day: 1 pack/day for 15.0 years (15.0 ttl pk-yrs) Types: Cigarettes Start date: 08/26/1982 Quit date: 08/26/1997 Years since quittin.9 Passive exposure: Past Smokeless tobacco: Never Vaping Use Vaping status: Never Used Substance Use Topics Alcohol use: Not Currently Comment: rare Drug use: No Review of patient's allergies indicates: Allergen Reactions Bupropion Other reaction(s): Recurrent falls as per patient Heparin Heparin Induced Thrombocytopenia Jardiance [Empagliflozin] Other (Please comment) 3 yeast infections in 6 weeks after starting Codeine hallucination Farxiga [Dapagliflozin] Other (Please comment) Yeast infection Hay Fever [Pollen] Hydrocodone Neuro complications (Please comment) Morphine And Codeine Hallucinations Tetanus Toxoid Other (Please comment) Passed out Review of patient's allergies indicates: Allergen Reactions [...] Dexcom G7 Sensor Use as directed. (From [facility]) Plavix 75 MG Oral Tablet Take 1 Tablet by mouth in the morning. Aspirin 81 MG Oral Tablet Delayed Release Take 1 Tablet by mouth in the morning. Tresiba FlexTouch 100 UNIT/ML Subcutaneous Solution Pen-injector (Insulin Degludec) INJECT 50 UNITSUNDER THE SKIN IN THE EVENING (Patient taking differently: Inject 41 Units under the skin every evening. Per [facility] pharmacist) 60 mL 3 Triamcinolone Acetonide 0.5 [...] BY MOUTH AT BEDTIME 30 Tablet 5 Levothyroxine Sodium 200 MCG Oral Tablet (Levoxyl) Take 1 Tablet by mouth daily first thing in the morning. (at least 30 min prior to breakfast or other meds) 30 Tablet 5 Senna-Time S 8.6-50 MG [...] 2 times a day. 84 Tablet 5 DULoxetine HCl 30 MG Oral Capsule Delayed Release Particles (Cymbalta) Take 1 Capsule by mouth in the morning. 28 Capsule 5 traZODone HCl 50 MG Oral Tablet (Desyrel) Take 1 Tablet by mouth at bedtime. 30 Tablet 5 clonazePAM 0.5 MG Oral Tablet (KlonoPIN) TAKE 1 TABLET BY MOUTH THREE TIMES A DAY 84 Tablet 0 Cholecalciferol 25 MCG (1000 UT) Oral Capsule [...] needed for Pain, Severe. 90 Tablet 0 Mounjaro 7.5 MG/0.5ML Subcutaneous Solution Pen-injector (Tirzepatide) Inject 7.5 mg under the skinonce a week. 2 mL 11 Ondansetron HCl 4 MG Oral Tablet (Zofran) Take 1 Tablet (4 mg) by mouth every 6 hours as needed forNausea. 90 Tablet 6 Gabapentin 300 MG Oral Capsule (Neurontin) Take 1 Capsule by mouth in the morning and 1 Capsule at noon and 1 Capsule before bedtime. ONETOUCH DELICA [...] No current facility-administered medications for this visit. Objective BP 108/60 (BP Site: Left Arm, BP Position: Sitting, BP Cuff Size: Large) | Pulse 84 | Resp 16 | Wt 121.8 kg (268 lb 8 oz) | LMP 03/11/2003 | SpO2 98% Comment: 4 LPM NC | BMI 46.45 kg/m | BSA 2.34 m General: No acute distress. A+Ox3. HEENT: Normocephalic. Atraumatic. Conjunctiva and sclera clear. NECK: No carotid bruits. No JVD. Carotid upstrokes are brisk. Heart: RRR. S1 and S2 noted without murmur, rubs, gallops. PMI non displaced. Lungs: Clear to auscultation. No wheezes, rhonchi, rales. Abdomen: Normal bowel sounds. Soft. Nontender. No masses or organomegaly. No abdominal bruits. Extremities: No edema. No clubbing or cyanosis. Pulses: radial=2/4, posterior tibial=2/4, dorsalis pedis = 2/4. NEURO: No focal deficits. PSYCH: Normal. Results Echocardiogram at [facility] echocardiogram report reviewed dated July 14, 2023: Interpretation Summary The examination is adequate to evaluate the referral indication. The qualitative LV ejection fraction is 55-59% (normal). There is severe mitral annular calcification. The mitral valve leaflets thickness is mildly increased. Borderline mild mitral stenosis secondary to severe mitral annular calcification. Echo 06/11/22 at [facility] Technically limited study No regional wall motion abnormalities Left ventricle is hyperdynamic Ejection fraction greater than 70% The right ventricle is grossly normal Right ventricular systolic function Is normal grade 1 diastolic dysfunction The valvular structures are not well visualized due to poor acoustic windows, however no significant stenosis or regurgitation noted on technically limited evaluation Carotid US 07/11/23 Duplex imaging performed of the bilateral extracranial arteries: *Technically challenging exam due to patient's body habitus and scanning patient in upright sitting position. 1. 80-99% stenosis in the right internal carotid artery (EDV is 140 cm/S). 2. No hemodynamically significant stenosis in the left internal carotid artery. 3. Retrograde flow in the right vertebral artery. 50-69 % stenosis of the proximal right subclavian artery. 4. Antegrade flow in the left vertebral artery. 5. Normal flow in the left subclavian artery Plaque Morphology: 1. Complex, calcified plaque in the bilateral bulb and internal carotid arteries. Compared to the previous study performed 12/06/2022, there is no significant change. Latest Reference Range & Units 11/07/23 16:43 Triglycerides <=174 mg/dL 119 Cholesterol <200 mg/dL 131 Non-HDL Cholesterol <=159 mg/dL 84 HDL Cholesterol >49 mg/dL 47 (L) LDL Cholesterol <=129 mg/dL 60 (L): Data is abnormally low (L): Data is abnormally low (H): Data is abnormally high Assessment & Plan Chronic Heart Failure with Preserved Ejection Fraction Stable, no recent exacerbations. Blood pressure well controlled. -Continue current management. -CHF tools discussed including daily weights, salt/sodium/fluid restriction, and use of diuretic protocol. Chronic Respiratory Failure Stable on 4 L supplemental oxygen. No recent exacerbations. -Continue current management. Hyperlipidemia Patient stopped Atorvastatin due to muscle cramps. Discussed the importance of lipid control given history of carotid disease. Discussed potential alternatives including Repatha or Praluent. -Order fasting lipid panel. -Consider alternative lipid-lowering therapy based on lipid panel results. Mild MS - no recent echo at [facility]. Last echo 06/2023 -repeat echo at f/u The patient is to continue all current medications as listed above. No changes were made at today'svisit. CHF tools discussed including daily weights, salt/sodium/fluid restriction, and use of diuretic protocol. Patient is being evaluated in the cardiology office for ongoing care/risk management for HFpEF; HTN; MS. I spent a total of 30 minutes on the date of service in preparation, delivery, and documentation ofthe care provided to Stephanie Camp excluding any time spent in the performance of separately billed services. The patient agrees to the above plan and will call with additional questions or concerns. ER with all emergencies advised. Follow Up: Return in about 6 months (around 01/15/2025). Marjorie Powell PA-C Department of Cardiology Text in this note was generated using an ambient documentation service. I discussed the use of a device to record and summarize our discussion today. All persons present during the encounter consented to its use. This chart was completed in part utilizing [employer] Speech Voice Recognition Software. Grammatical errors, random [...] documented in this encounter Nursing Notes * Kaley Ahmadi CMA - 07/17/2024 1:13 PM EDT Examination Room: 1 Name: Stephanie Camp Date of : (1955). Reason for Visit: 6M f/u Interim Hospitalization(s): [facility] UTI, kidney infection Problems/Concerns: denies Chest Pain/SOB: denies [facility] Discussed: No [facility] is a way you can [...] Team (Late st Contact Info) Description 07/31/2024 2:20 PM EST Office Visit Family Practice [address] [place] [address] [facility] [phone] Galdino Andujar DO [address] [place] [address] 09/12/2024 11:00 AM EST Office Visit Nephrology, [facility] [address] [place] [address] Erik Lenz MD [address] [facility] [place] [address] 01/15/2025 1:30 PM EDT Office Visit Cardiology, [facility] [address] [place] [address] Marjorie Powell PA-C [address] [place] [address] 02/19/2025 1:00 PM EDT Nurse Only Family Practice [address] [place] [address] [address] [facility] [phone] Shira De La Rosa, LEXI [address] [place] [phone] 06/13/2025 1:30 PM EDT Imaging Radiology [facility] [facility] [place] [address] [place] [address] Scheduled Orders Name Type Priority Associated Diagnoses Orde r Schedule LIPID PANEL WITH DIRECT LDL IF TG IS HIGH Lab Routine Dyslipidemia, goal LDL below 70 Expected: 07/17/2024, Expires: 07/17/2025 Scheduled Procedures Name Priority Associated Diagnoses Date/Ti [...] Additional history exists CKD PHOS USE SMARTSET 78067 12/26/2024 04/0 10/2023, 02/11/2023, 01/07/2022, Additional history exists Adult Wellness Visit 02/13/2025 02/14/2024, 08/05/20 22 Mammogram 06/12/2025 06/12/2024, 05/27, 04/21/2023, Additional history exists CKD HGB USE SMARTSET 40507 06/26/202506/26, 06/26/2024, 05/18/2024, Additional history exists Diabetic Eye Exam 06/26/2025 06/26/2024, , 05/24/2022, Additional history exists Depression Monitoring 07/16/2025 07/16/2024, 024 Colonoscopy 02/17/2026 02/18/2016, 01/25, 01/28/2006, Additional history exists Colorectal Cancer Screening 02/17/2026 Zoster Vaccines Completed 05/08/2020, 10/27, 12/11/2015 Pneumococcal Vaccine: 65+ Years Completed 03/12/2022, 08/22/2009, 06/15/2006 COVID-19 Vaccine Discontinued 07/26/2023, , 2022, Additional history exists Influenza Vaccine (FLU shot) Completed 06/26/2024, 06/21/2023, 06/18/2022, Additional history exists HPV (Gardasil) Vaccine Aged [...] of this encounter Visit Diagnoses Diagnosis Chronic heart failure with preserved ejection fraction (HCC)- Primary Dyslipidemia, goal LDL below 70 Other and unspecified hyperlipidemia 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 3b chronic kidney disease (HCC) Chronic hypoxemic respiratory failure (HCC) Chronic respiratory failure Nonrheumatic mitral valve stenosis Screening mammogram for breast cancer documented in this encounter Advance Directives Documents on File Type Date Recorded Patient Chief Ultrasound Technologist Expl anation POLST 03/19/2020 4:25 PM [...] (no specific identity) Health Care Power of Open Cut Examiner Princess Allen Other - (no specific identity) Health Care Power of Open Cut Examiner Care Teams Live Truck Technician Relationship Specialty Start Date End Date Galdino Andujar DO [address] [place] [address] PCP - General Internal Medicine 03/08/24 documented as of this encounter
--- OUTSIDE RECORDS SUMMARY | 2024-12-09 19:32 | External Medical Summary | Summary of Care ---
Author Name Unknown Organization [facility] Address [address] [place] [address] Phone [phone] Care Team Providers Care Resume Specialist Name Role Phone Galdino Andujar DO Primary Care Provider [phone] Reason for Visit * Reason Onset Date Comments [facility]: Maintenance 07/11/2024 Encounter Details Date Type Department Care Team (Late st Contact Info) Description 07/11/2024 Telephone [facility], [facility] [address] [place] [address] Jarrett Mathis, LEXI [address] [place] [address] [facility]: Maintenance Allergies Active Allergy [...] as of this encounter (statuses as of 07/11/2024) Medications Medication Sig Dispensed Refills Start Date [...] G7 Sensor Use as directed. (From [facility]) 06/01/2023 Active BD Pen Needle Short [...] taking differently: 41 Units Subcutaneous DAILY(1900), Per [facility] pharmacist, Reported on 06/29/2024 Atorvastatin Calcium [...] 200 MCG Oral Tablet (Levoxyl)Indications :Postsurgical hypothyroidism Take 1 Tablet by mouth daily first thing in the morning. (at least 30 min prior to breakfast or other meds) 30 Tablet 02/24/2024 Active Senna-Time S 8.6-50 MG Oral Tablet (senna-docusate) TAKE 1 TABLET BY MOUTH IN THE MORNING AND AT BEDTIME 60 Tablet 03/22/2024 Active Doxycycline Hyclate 100 MG Oral Capsule Take 1 Capsule by mouth in the morning and 1 Capsule before bedtime. 03/26/2024 Active Potassium Chloride Ayleen ER 20 MEQ [...] (Cymbalta)Indication s:Fibromyalgia,Major depressive disorder, recurrent, moderate (HCC) Take 1 Capsule by mouth in the morning. 28 Capsule 5 05/17/2024 Active traZODone HCl 50 MG Oral Tablet (Desyrel) Take 1 Tablet by mouth at bedtime. 30 Tablet 5 05/24/2024 Active clonazePAM 0.5 MG Oral Tablet (KlonoPIN)Indication [...] insulin ([facility]) Inject 7.5 mg under the skin once a week. 2 mL 11 06/26/2024 Active Ondansetron HCl 4 MG Oral Tablet (Zofran)Indications: Dizziness and giddiness Take 1 Tablet (4 mg) by mouth every 6 hours as needed for Nausea. 90 Tablet 6 07/04/2024 Active Gabapentin 300 MG Oral Capsule (Neurontin)Indicatio ns:Fibromyalgia Take 1 Capsule by mouth in the morning and 1 Capsule at noon and 1 Capsule before bedtime. 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 Atherosclerosis of [place] ronary artery without angina pectoris 12/31/2021 [...] CKD--defer to pcp Chronic heart failure with p reserved ejection fraction (HFpEF) 06/12/2018 Controlled substance agreement signed 07/14/2017 Gastroesophageal [...] as of this encounter (statuses as of 07/11/2024) Resolved Problems Problem Noted Date Diagnosed Date [...] as of this encounter (statuses as of 07/11/2024) Immunizations Name Administration Dates Next Due COVID-19 mRNA, LNP-s, No Pre serve, 2-Dose Series ([employer]er [employer]) 01/08/2021,12/18/2020 COVID-19, LNP-s, No Preserve , Navarro-sucrose, Ages 12+ (Pfizer) 2022,10/01/2021 COVID-19, MRNA-LNP, 23-24, P F, 30 MCG/0.3 mL, 12 YRS AND ABOVE, IM (PFIZER-Comirnaty) 07/26/2023 Pneumococcal Conjugate Vacci ne, 20-valent ([id number]) 03/12/2022 Pneumococcal Polysaccharide PPV23 (Pneumovax) 08/22/2009,06/15/2006 RSV [...] 18 years and over) Not on file 05/21/202 4 Are you (or your family) jessie eless [...] discharge the patient from [facility] ([facility] Device(s)/IVR to be discontinued: 07/11/24 due to non-compliance. Thank you. documented in this encounter Plan of Treatment Upcoming Encounters Date Type Department Care Team (Late st Contact Info) Description 07/16/2024 12:30 PM EDT Telemedicine Psychology Kamari Oliveros [address] [place] [phone] Suzanne Robertson LCSW [address] [place] [address] 07/17/2024 1:30 PM EDT Office Visit Cardiology, [facility] [address] [place] [address] Marjorie Powell PA-C [address] [place] [address] 07/31/2024 2:20 PM EST Office Visit Family Practice 65 [facility] [address] [place] [address] Galdino Andujar DO 293 [facility] [place] [address] 09/12/2024 11:00 AM EST Office Visit Nephrology, [facility] [address] [place], [place] [address] Erik Lenz MD 200 [facility] [place] [address] 02/19/2025 1:00 PM EDT Nurse Only Family Practice 65 [facility] [address] [place] [id number] Shira De La Rosa, LEXI [address] [facility] [place] [address] 06/13/2025 1:30 PM EDT Imaging Radiology [address] 132 [facility] [place] [address] Scheduled Procedures Name Priority [...] Additional history exists CKD PHOS USE SMARTSET 38472 12/26/2024 04/0 10/2023, 02/11/2023, 01/07/2022, Additional history exists Adult Wellness Visit 02/13/2025 02/14/2024, 08/05/20 22 Depression Monitoring 02/13/2025 02/14/2024 Mammogram 06/12/2025 06/12/2024, 05/27, 04/21/2023, Additional history exists CKD HGB USE SMARTSET 63091 06/26/202506/26, 06/26/2024, 05/18/2024, Additional history exists Diabetic Eye Exam 06/26/2025 06/26/2024, , 05/24/2022, Additional history exists Colonoscopy 02/17/2026 02/18/2016, 01/25, [...] Documents on File Type Date Recorded Patient Mechanism Assembler Expl anation POLST 03/19/2020 4:25 PM [...] (no specific identity) Health Care Power of Seasonal Clerk Princess Allen Other - (no specific identity) Health Care Power of Seasonal Clerk Care Teams Resume Specialist Relationship Specialty Start Date End Date Galdino Andujar DO [address] [place] [address] PCP - General Internal Medicine 03/08/24 documented as of this encounter
--- OUTSIDE RECORDS SUMMARY | 2024-12-09 19:32 | External Medical Summary | Summary of Care ---
Author Name Unknown Organization [facility] Address [address] [place] [address] Phone [phone] Care Team Providers Care Lead Fabricator Name Role Phone Lexii Andujar DO Primary Care Provider [phone] Reason for Visit * Reason Comments eRx-Medication Refill Encounter Details Date Type Department Care Team (Late st Contact Info) Description 07/27/2024 Refill Family Practice [address], [place] [address] [place] [phone] Lexii Andujar DO [address] [place] [address] Restless legs syndrome; Anxiety state; POSTSURGICAL HYPOTHYROID Allergies Active Allergy Reactions Criticality Noted Date [...] as of this encounter (statuses as of 07/30/2024) Medications Medication Sig Dispensed Refills Start Date End Date Status ONETOUCH DELICA LANCETS 33G MISC Check blood sugars 3-4 times daily 180 Each 5 8 Active oxygen GASIndications:ELISSA (obstructive sleep apnea) Use 3 L/min(Oxygen) as directed continuous. 0 Active CPAP every night at bedtime. Active Acetaminophen 500 MG Oral Tablet (Tylenol) Take 2 Tablets by mouth in the morning and 2 Tablets at noon and 2 Tablets before bedtime. 100 Tablet 3 Active DIURETIC TITRATION PLAN If no improvement on day 3, contact heart failure managing provider. 1 Each 3 Active NovoLOG FlexPen 100 UNIT/ML Subcutaneous Solution Pen-injector (insulin aspart)Indications :Type 2 diabetes mellitus with hemoglobin A1c goal of 7.0%-8.0% (HCC) Inject 8 units with breakfast and 8units lunch and 10 units with dinner + sliding scale 1 units for every 25 units BG > 150. 150 mL 3 3 Active Dexcom G7 Sensor Use as directed. (From [facility]) 3 Active BD Pen Needle Short U/F 31G X 8 MM (Insulin Pen Needle) use five times daily 500 Each 3 3 Active Plavix 75 MG Oral Tablet Take 1 Tablet by mouth in the morning. 3 Active Aspirin 81 MG Oral Tablet Delayed Release Take 1 Tablet by mouth in the morning. Active Tresiba FlexTouch 100 UNIT/ML Subcutaneous Solution Pen-injector (Insulin Degludec)Indicatio ns:Type 2 diabetes mellitus with hemoglobin A1c goal of 7.0%-8.0% (HCC) INJECT 50 UNITS UNDER THE SKIN IN THE EVENING 60 mL 3 3 Active Additional Information Patient taking differently: 41 Units Subcutaneous DAILY(1900), Per [facility] pharmacist, Reported on 06/29/2024 Atorvastatin Calcium 20 MG Oral Tablet (Lipitor) Take 1 Tablet by mouth in the morning. Prescribed by Carmen Waggoner PA-C. Active Triamcinolone Acetonide 0.5 % External Cream (Aristocort)Indica tions:Dermatitis Apply topically to affected area 2 times a day. Chest rash 60 g 4 Active Apixaban 2.5 MG Oral Tablet (Eliquis) Take 1 Tablet by mouth in the morning and 1 Tablet before bedtime. 60 Tablet 11 4 Active Ferrous Sulfate 325 (65 Fe) MG Oral Tablet (Feosol)Indication s:Anemia Take 1 Tablet by mouth in the morning and 1 Tablet before bedtime. 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, NYHA class 1 and CKD stage 3 (HCC),Chronic diastolic congestive heart failure (HCC) TAKE 1 TABLET BY MOUTH IN THE MORNING AND AT BEDTIME 60 Tablet 5 4 Active rOPINIRole HCl 2 MG Oral Tablet (Requip)Indication s:Restless legs syndrome TAKE 1 TABLET BY MOUTH AT BEDTIME 30 Tablet 5 4 Active Senna-Time S 8.6-50 MG Oral Tablet (senna-docusate) TAKE 1 TABLET BY MOUTH IN THE MORNING AND AT BEDTIME 60 Tablet 5 4 Active Potassium Chloride Ayleen ER 20 MEQ Oral Tablet Extended ReleaseIndications :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, NYHA class 1 and CKD stage 3 (HCC),Chronic diastolic congestive heart failure (HCC) TAKE 1 TABLET BY MOUTH IN THE MORNING AND AT BEDTIME 60 Tablet 5 4 Active DULoxetine HCl 60 MG Oral Capsule Delayed Release Particles (Cymbalta)Indicati ons:Fibromyalgia,M ajor depressive disorder, recurrent, moderate (HCC) TAKE 1 CAPSULE BY MOUTH ONCE DAILY IN THE MORNING 30 Capsule 5 4 Active Omeprazole 20 MG Oral Capsule Delayed Release (PriLOSEC)Indicati ons:Gastroesophage al reflux disease with esophagitis without hemorrhage TAKE 1 CAPSULE BY MOUTH ONCE DAILY IN THE MORNING 30 Capsule 4 Active Furosemide 40 MG Oral Tablet (Lasix)Indications :Chronic diastolic congestive heart failure (HCC) Take 1.5 Tablets by mouth 2 times a day. 84 Tablet 4 Active DULoxetine HCl 30 MG Oral Capsule Delayed Release Particles (Cymbalta)Indicati ons:Fibromyalgia,M ajor depressive disorder, recurrent, moderate (HCC) Take 1 Capsule by mouth in the morning. 28 Capsule 4 Active traZODone HCl 50 MG Oral Tablet (Desyrel) Take 1 Tablet by mouth at bedtime. 30 Tablet 5 4 Active Cholecalciferol 25 MCG (1000 UT) Oral Capsule Take 1 capsule by mouth once daily in the morning 30 Capsule 5 4 Active Dicyclomine HCl 20 MG Oral Tablet (Bentyl)Indication s:Irritable bowel syndrome, unspecified type Take 1 Tablet by mouth 4 times a day as needed for Cramping. 180 Tablet 3 4 Active traMADol HCl 50 MG Oral Tablet (Ultram)Indication s:Lumbar radiculopathy,Prim elif osteoarthritis of left knee Take 1 Tablet by mouth every 8 hours as needed for Pain, Severe. 90 Tablet 4 Active Mounjaro 7.5 MG/0.5ML Subcutaneous Solution Pen-injector (Tirzepatide)Indic ations:Type 2 diabetes mellitus with stage 3b chronic kidney disease, with long-term current use of insulin (HCC) Inject 7.5 mg under the skin once a week. 2 mL 11 4 Active Ondansetron HCl 4 MG Oral Tablet (Zofran)Indication s:Dizziness and giddiness Take 1 Tablet (4 mg) by mouth every 6 hours as needed for Nausea. 90 Tablet 6 4 Active Gabapentin 300 MG Oral Capsule (Neurontin)Indicat ions:Fibromyalgia Take 1 Capsule by mouth in the morning and 1 Capsule at noon and 1 Capsule before bedtime. 4 Active clonazePAM 0.5 MG Oral Tablet (KlonoPIN)Indicati ons:Restless legs syndrome,Anxiety state TAKE 1 TABLET BY MOUTH THREE TIMES A DAY 84 Tablet 4 Active Levothyroxine Sodium 200 MCG Oral Tablet (Levoxyl)Indicatio ns:Postsurgical hypothyroidism TAKE 1 TABLET BY MOUTH ONCE DAILY IN THE MORNING 90 Tablet 1 4 Active Levothyroxine Sodium 200 MCG Oral Tablet (Levoxyl)Indicatio ns:Postsurgical hypothyroidism Take 1 Tablet by mouth daily first thing in the morning. (at least 30 min prior to breakfast or other meds) 30 Tablet 5 4 07/29/20 24 Discontinued clonazePAM 0.5 MG Oral Tablet (KlonoPIN)Indicati ons:Restless legs syndrome,Anxiety state TAKE 1 TABLET BY MOUTH THREE TIMES A DAY 84 Tablet 4 07/30/20 24 Discontinued documented as of this encounter (statuses as of 07/30/2024) Active Problems Problem Noted Date Diagnosed Date [...] 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 Atherosclerosis of [place] co ronary artery without angina pectoris 12/31/2021 [...] Assessment & Plan: Home PT to start [place] filter in place 08/19/2014 History of pulmonary [...] as of this encounter (statuses as of 07/30/2024) Resolved Problems Problem Noted Date Diagnosed Date [...] as of this encounter (statuses as of 07/30/2024) Immunizations Name Administration Dates Next Due COVID-19 mRNA, LNP-s, No Pre serve, 2-Dose Series (Hundo) 01/08/2021,12/18/2020 COVID-19, LNP-s, No Preserve , Navarro-sucrose, Ages 12+ (Pfizer) 2022,10/01/2021 COVID-19, MRNA-LNP, PF, 30 M CG/0.3 mL, 12 YRS AND ABOVE, IM (PFIZER-Comirnaty) 07/26/2023 Pneumococcal Conjugate Vacci ne, 20-valent ([id number]) 03/12/2022 Pneumococcal Polysaccharide PPV23 (Pneumovax) 08/22/2009,06/15/2006 RSV [...] Telephone Encounter - Lexii Andujar DO - 07/30/2024 8:28 AM ESTSigned Prescriptions: Disp Refills clonazePAM 0.5 MG Oral Tablet (KlonoPIN) 84 Tab*0 Sig: TAKE 1 TABLET BY MOUTH THREE TIMES A DAYAuthorizing Provider: LEXII ANDUJAR Levothyroxine Sodium 200 MCG Oral Tablet (*90 Tab*1 Sig: TAKE 1 TABLET BY MOUTH ONCE DAILY IN THE MORNINGAuthorizing Provider: LEXII ANDUJAR AOrdering User: SANGEETHA ASCENCIO * Telephone Encounter - Lexii Andujar DO - 07/30/2024 8:28 AM EST I have reviewed the patients controlled substance dispensing history in the Prescription Drug Monitoring Program in compliance with the [facility] regulations before prescribing a controlled [...] can be found in Results Review. Due 07/12 * Telephone Encounter - Sangeetha Ascencio [facility] - 07/29/2024 4:01 PM ESTPending Prescriptions: Disp Refills clonazePAM 0.5 MG Oral Tablet (KlonoPIN) 84 Tab*0 Sig: TAKE 1 TABLET BY MOUTH THREE TIMES A DAY Signed Prescriptions: Disp Refills Levothyroxine Sodium 200 MCG Oral Tablet (*90 Tab*1 Sig: TAKE 1 TABLET BY MOUTH ONCE DAILY IN THE MORNING Authorizing Provider: LEXII ANDUJAR Ordering User: SANGEETHA ASCENCIO * Telephone Encounter - Sangeetha Ascencio [facility] - 07/29/2024 3:59 PM EST I have reviewed the patients controlled substance dispensing history in the Prescription Drug Monitoring Program in compliance with the [facility] regulations before prescribing a controlled substance. PDMP checked on 07/29/2024. Pending Prescriptions: Disp Refills clonazePAM 0.5 MG Oral Tablet (KlonoPIN) *84 Tab*0 Sig: TAKE 1 TABLET BY MOUTH THREE TIMES A DAY Signed Prescriptions: Disp Refills Levothyroxine Sodium 200 MCG Oral Tablet (*90 Tab*1 Sig: TAKE 1 TABLET BY MOUTH ONCE DAILY IN THE MORNING Authorizing Provider: LEXII ANDUJAR Ordering User: SANGEETHA ASCENCIO Last Visit: 06/26/2024 (in office), 04/23/2024 (telemedicine) Next Visit: 07/31/2024 Date medication was last filled: 06/14/2024 Date medication is due for refill: 07/12/2024 Pharmacy: [address] Is this request for a controlled substance? Yes and Urine Drug Screen Not completed Toxicology results: Results for orders placed [...] Review. Please approve if appropriate. Thank you, Sangeetha Ascencio [facility] Clinical Pharmacist [facility] ([facility]) 07/29/24 4:00 PM [phone] documented in this encounter Plan of Treatment Upcoming Encounters Date Type Department Care Team (Late st Contact Info) Description 07/31/2024 2:20 PM EST Office Visit Family Practice [address] [place] [address] 293 [place] [address] Lexii Andujar DO [address] [place] [address] 09/12/2024 11:00 AM EST Office Visit Nephrology, [facility] [address] [place] [address] Erik Lenz MD [address] [place] [address] 01/15/2025 1:30 PM EDT Office Visit Cardiology, [facility] 132 [facility] [place] [address] Marjorie Powell PA-C 132 [facility] [place] [address] 02/19/2025 1:00 PM EDT Nurse Only Family Practice [address] [place] [address] [place], [place] [address] Shira De La Rosa, LEXI [address] [place] [address] 06/13/2025 1:30 PM EDT Imaging Radiology [facility] [facility], [place] 132 [facility] [place] [address] Scheduled Procedures Name Priority Associated Diagnoses Date/Ti me COLONOSCOPY FLEXIBLE PROXIMAL DIAGNOSTIC Recall Colon cancer screening Health Maintenance Due Date Last Done Comments Cologuard 2000 Fecal Occult Blood Test 2000 Sigmoidoscopy 2000 Albumin/Creatinine Ratio 08/05/2024 023, 11/01/2022, 01/07/2022, Additional history exists Diabetic Foot Exam 10/04/2024 10/04/2023, 0 11/01/2022, 01/07/2022, Additional history exists TSH 12/21/2024 12/22/2023, 09/26, 11/01/2022, Additional history exists GFR 12/25/2024 06/26/2024, 0811/2023, 02/02/2024, Additional history exists HbA1c 12/25/2024 06/26/2024, 07/0 09/2023, 12/22/2023, Additional history exists CKD PHOS USE SMARTSET 32293 12/26/2024 04/0 10/2023, 02/11/2023, 01/07/2022, Additional history exists Adult Wellness Visit 02/13/2025 02/14/2024, 08/05/20 22 Mammogram 06/12/2025 06/12/2024, 05/27, 04/21/2023, Additional history exists CKD HGB USE SMARTSET 98105 06/26/202506/26, 06/26/2024, 05/18/2024, Additional history exists Diabetic [...] syndrome (RLS) Anxiety state Anxiety state, unspecified POSTSURGICAL HYPOTHYROID Postsurgical hypothyroidism Screening mammogram for breast cancer documented in this encounter Advance Directives Documents on File Type Date Recorded Patient Information Security Architect Expl anation POLST 03/19/2020 4:25 PM POLST [...] (no specific identity) Health Care Power of Calender Operator Princess Allen Other - (no specific identity) Health Care Power of Calender Operator Care Teams Lead Fabricator Relationship Specialty Start Date End Date Lexii Andujar DO [address] [place] [address] PCP - General Internal Medicine 03/08/24 documented as of this encounter
--- OUTSIDE RECORDS SUMMARY | 2024-12-09 19:32 | External Medical Summary | Summary of Care ---
Author Name Unknown Organization [facility] Address [address] [place] [address] Phone [phone] Care Team Providers Care Military Lawyer Name Role Phone Galdino Andujar DO Primary Care Provider [phone] Reason for Visit * Reason Comments Depression * - Authorized Specialty Diagnoses / Procedures Referred By Contac t Referred To Contact Referral ID Status Reason Start Date Expiration Date V isits Requested Visits Authorized [id number] Authorized 06/26/2024 06/25/[phone] Encounter Details Date Type Department Care Team (Late st Contact Info) Description 07/16/2024 12:30 PM EDT Telemedicine Psychology Kamari Oliveros [address] [place] [address] Suzanne Robertson, [facility] [address] [place] [address] Recurrent major depressive disorder, remission status unspecified (HCC)* Allergies Active Allergy Reactions Criticality Noted [...] as of this encounter (statuses as of 07/20/2024) Medications Medication Sig Dispensed Refills Start Date End Date Status DEMIAN CHANDRA 33G [facility] Check blood sugars 3-4 times daily 180 [...] 7.0%-8.0% ([facility]) Inject 8 units with breakfast and 8units lunch and 10 units with dinner + sliding scale 1 units for every 25 units BG > 150. 150 mL 3 05/16/2023 Active Dexcom G7 Sensor Use as directed. (From [facility]) 06/01/2023 Active BD Pen Needle Short U/F [...] taking differently: 41 Units Subcutaneous DAILY(1900), Per [facility] pharmacist, Reported on 06/29/2024 Atorvastatin Calcium [...] insulin ([facility]) Inject 7.5 mg under the skin [...] as of this encounter (statuses as of 07/20/2024) Active Problems Problem Noted Date Diagnosed Date [...] upcoming carotid surgery at [facility]. 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 Atherosclerosis of tetlin co ronary artery without angina pectoris 12/31/2021 [...] Assessment & Plan: Home PT to start [place] filter in place 08/19/2014 History of pulmonary [...] evidently given by vascular, has to picking table worker rx documented as of this encounter (statuses as of 07/20/2024) Resolved Problems Problem Noted Date Diagnosed Date [...] as of this encounter (statuses as of 07/20/2024) Immunizations Name Administration Dates Next Due COVID-19 mRNA, LNP-s, No Pre serve, 2-Dose Series (Slingbox) 01/08/2021,12/18/2020 COVID-19, LNP-s, No Preserve , Navarro-sucrose, Ages 12+ (Pfizer) 2022,10/01/2021 COVID-19, MRNA-LNP, 23-24, P F, 30 MCG/0.3 mL, 12 YRS AND ABOVE, IM (PFIZER-Comirnaty) 07/26/2023 Pneumococcal Conjugate Vacci ne, 20-valent ([id number]) 03/12/2022 Pneumococcal Polysaccharide PPV23 (Pneumovax) 08/22/2009,06/15/2006 RSV [...] No 02/14/2024 Does the household have a [facility]? (Household [...] as of this encounter Progress Notes * Suzanne Robertson, COIN COUNTER AND WRAPPER - 07/16/2024 12:32 PM EDT Images from the original note were not included. Psychiatry Intake Assessment Patient location: HOME. I was not in a hospital or clinic location. After connecting through televideo, patient was verified with two unique identifiers. Patient (or authorized legal senior customer service representative) was then informed that this was a Telemedicine visit and being conducted confidentially over secure lines. Methods to assure confidentiality were taken. Patient acknowledged consent and understanding of privacy and security of the Telemedicine visit. The patient agreed to participate. Provider reviewed elements of Outpatient Services Description including limits of confidentiality, how to contact the department, risks and benefits of treatment and consent for treatment. Patient location: HOME. I was not in a hospital or clinic location. After connecting through televideo, patient was verified with two unique identifiers. Patient (or authorized legal senior customer service representative) was then informed that this was a Telemedicine visit and being conducted confidentially over secure lines. Methods to assure confidentiality were taken. Patient acknowledged consent and understanding of privacy and security of the Telemedicine visit. The patient agreed to participate. Start Time: 1232 Stop Time: 1320 Total Time:48 min History of Present Illness Reason for Referral: Stephanie Camp is 69 year old. Referred by Family Practice [address] [place] Galdino Andujar DO for Depression Brief History of Present Illness: Patient reports experiencing "My doctor thinks I should be set upwith a psyhiatrist or a psychologist and that sort of sh#t" "I miss having someone to talk to" Pt endorses active sx: "depression"; stopped doing hobbies like crafts "can't seem to get into it";diminished interest & pleasure; tired; decreased energy; worries; increased irritability; restlessness; h/o s/ threats but denies h/o plan/intent/ attempts. Pt endorses breakthrough sxs surfacingover the past year despite current meds and which reportedly may be exacerbated by stressors. Potential causes/stressors/trauma include: "money or lack thereof"; pain/ health/ medical/; "motherdied when I was 18"; "then I took care of my father when he had lung cancer when I was in my late 50's"; Patient's goal is "Get back into therapy or counseling" Screening Questionnaires: 06/21/2023 07/26/2023 09/13/2023 10/04/2023 10/20/2023 02/14/2024 07/16/2024 PSYCH QUESTIONNAIRES TOTAL Adult PHQ-9 Total Score 2 0 2 2 2 8 10 GAD7= 7 [place] Suicide Severity Rating Scale Results 07/16/2024 13:13 [place] SUICIDE SEVERITY RATING SCALE (C-SSRS) Have you wished you were or wished you could go to sleep and not wake up? (In the Past Month or Since Last Visit) No Have you had any actual thoughts of killing yourself? (In the Past Month or Since Last Visit) No Have you been thinking about how you might do this? (In the Past Month or Since Last Visit) No Have you had thoughts and had some intention of acting on them? (In the Past Month or Since Last Visit) No Have you started to work out or worked out the details of how to kill yourself? Do you intend to carry out this plan? (In the Past Month or Since Last Visit) No Have you ever done anything, started to do anything, or prepared to do anything to end your life? (Lifetime) No Was this within the past 3 months? No Level of Risk No Risk Identified Protective Factors Social Support/Family;Hopeful attitude and or beliefs;Identifies reasons for living;Supervision and monitoring available;Willing to participate in less restrictive means of help;Future Plans Risk Factors History of Depression;Anxiety;Physical illness/chronic pain;History of Trauma;Age Crisis Planning: What I can do if I ever experience a crisis (much worse symptoms, severe distress or thoughts of self-harm): Call my provider or dial 911, Talking to friend in my building; read; cat People I can call in the event of a crisis: Family Member: Brother and Aunt Additional resources I can utilize if the previous steps are ineffective (e.g: ED, hotlines): Suicide and Crisis Lifeline - 988 and [facility] Hotlines for Help SISQ - How many times in the past year have you used an illegal drug or used a prescription medicine for non-medical reasons? 0 How many times in the past year have you had X or more drinks in a day? 0 (x=5 for men and 4 for women) Past History The patient's past history was reviewed and updated. Past Psychiatry History: Are you currently being treated for a mental health or substance use condition? Yes: Name of Treating Clinician: PCP Ever been treated as an outpatient (such as a doctor's or therapist's office or a clinic) for a mental health or substance use condition? Yes h/o therapy & prior med trials Ever been hospitalized for a mental health or substance use condition? No Ever been to the emergency room for a mental health or substance use condition? No Have you overdosed in the last month? No Mental Status Exam Appearance: wearing oxygen; appears close to stated age Behavior: cooperative Speech: normal pitch, normal rate, and normal volume Mood: "tired" Affect: constricted Thought Process: within normal limits and goal directed Thought Content: Delusions: No Hallucinations: No Obsessions: No Homicidal: No Suicidal: No Sensorium: alert and oriented to person, place, time and situation Cognition: grossly intact Insight: fair Judgment: fair Assessment and Plan Diagnostic Impression: Diagnoses listed below are provisional and further assessment and differential diagnosis is needed. ICD-10-CM 1. Recurrent major depressive disorder, remission status unspecified (HCC) F33.9 Recommendations/Plan: Individual (general) psychotherapy and Patient will return to PCP for medication follow-up Pt may benefit from ind therapy as adjunct. Pt to continue adhering to current med regimen as indicated by PCP. Tx options discussed. staff radiation therapist to send community resources for therapy given lack of in-house appts. No tx plan indicated at this time. Pt amenable to aforementioned. Interactive Complexity: did not involve interactive complexity. documented in this encounter Plan of Treatment Upcoming Encounters Date Type Department Care Team (Late st Contact Info) Description 07/31/2024 2:20 PM EST Office Visit Family Practice [address] [place] [address] [address] [place] [phone] Galdino Andujar DO [address] [place] [address] 09/12/2024 11:00 AM EST Office Visit Nephrology, [facility] [address] [facility] [place] [address] Erik Lenz MD [address] [facility] [place] [address] 01/15/2025 1:30 PM EDT Office Visit Cardiology, [facility] [address] [facility] [place] [address] Marjorie Powell PA-C [facility] [place] [address] 02/19/2025 1:00 PM EDT Nurse Only Family Practice [address] [facility] [address] [place] [phone] Shira De La Rosa, LEXI [address] [place] [phone] 06/13/2025 1:30 PM EDT Imaging Radiology [address] [place] [address] Scheduled Procedures Name Priority Associated Diagnoses Date/Ti me COLONOSCOPY FLEXIBLE PROXIMAL DIAGNOSTIC Recall Colon cancer screening Scheduled Referrals Name Type Priority Associated Diagnoses Orde r Schedule ADULT/PEDS PSYCHIATRY REFERRAL OP Referral Within 10 days (routine) Moderate episode of recurrent major depressive disorder (HCC) Ordered: 06/26/2024 Health Maintenance Due Date Last Done Comments [...] Additional history exists CKD PHOS USE SMARTSET 41845 12/26/2024 04/0 10/2023, 02/11/2023, 01/07/2022, Additional history exists Adult Wellness Visit 02/13/2025 02/14/2024, 08/05/20 22 Mammogram 06/12/2025 06/12/2024, 05/27, 04/21/2023, Additional history exists CKD HGB USE SMARTSET 76109 06/26/202506/26, 06/26/2024, 05/18/2024, Additional history exists Diabetic Eye Exam 07/06/2025 07/06/2024, , 06/26/2024, Additional history exists Depression Monitoring 07/19/2025 07/19/2024, [...] as of this encounter Visit Diagnoses Diagnosis Recurrent major depressive disorder, remission status unspecified (HCC)- Primary Screening mammogram for breast cancer documented in this encounter Advance Directives Documents on File Type Date Recorded Patient Embossing Clerk Expl anation POLST 03/19/2020 4:25 PM [...] (no specific identity) Health Care Power of Smoking Pipe Liner Princess Allen Other - (no specific identity) Health Care Power of Smoking Pipe Liner Care Teams Military Lawyer Relationship Specialty Start Date End Date Galdino Andujar DO [address] [place] [address] PCP - General Internal Medicine 03/08/24 documented as of this encounter
--- OUTSIDE RECORDS SUMMARY | 2024-12-09 19:32 | External Medical Summary | Summary of Care ---
Author Name Unknown Organization [facility] Address [address] [place] [address] Phone [phone] Care Team Providers Care Signalman Name Role Phone Galdino Andujar DO Primary Care Provider [phone] Reason for Referral * Evaluate & Treat - Unlimited Visits (Within 10 days (routine)) - Authorized Specialty Diagnoses / Procedures Referred By Contac t Referred To Contact Physical Therapy / Physical Medicine And Rehab Diagnoses Abnormality of gait Spinal stenosis of lumbar region without neurogenic claudication Galdino Andujar DO [address] [place] [address] Referral ID Status Reason Start Date Expiration Date Visits Requested Visits Authorized [id number] Authorized Specialty Services Required 06/26/[phone] Question Answer Referral Priority Within 10 days (routine) Where should this appointment be scheduled? [facility] * Evaluate & Treat - Unlimited Visits (Within 10 days (routine)) - Authorized Specialty Diagnoses / Procedures Referred By Contac t Referred To Contact Psychiatry Diagnoses Moderate episode of recurrent major depressive disorder (HCC) Galdino Andujar DO [address] [place] [address] Referral ID Status Reason Start Date Expiration Date Visits Requested Visits Authorized [id number] Authorized Specialty Services Required 06/26/[phone] Question Answer Referral Priority Within 10 days (routine) Where should this appointment be scheduled? [facility] Is this referral for medication management? Yes Reason for Referral Depression * Evaluate & Treat - Unlimited Visits (Within 30 days (routine)) - Authorized Specialty Diagnoses / Procedures Referred By Ethan chao Referred To Contact Optometry Diagnoses DM peripheral angiopathy (HCC) Galdino Andujar DO [address] [place] [address] Referral ID Status Reason Start Date Expiration Date Visits Requested Visits Authorized [id number] Authorized Specialty Services Required 06/26/2024 1 1 Question Answer Referring for: Optometry Conditions Optometry Conditions Diabetic Eye Exam without Retinopathy Referral Priority Within 30 days (routine) Where should this appointment be scheduled? External Reason for Visit * Reason Comments Follow Up Encounter Details Date Type Department Care Team (Latest Contact Info) Description 06/26/2024 1:40 PM EDT Office Visit Family Practice [address] [place] [address], [address] [address] Galdino Andujar DO [address] [place] [address] 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 3b chronic kidney disease (HCC)*; Type 2 diabetes mellitus with stage 3b chronic kidney disease, with long-term current use of insulin (HCC); Chronic hypoxemic respiratory failure ([facility]); ILD (interstitial lung disease) ([facility]); DM peripheral angiopathy (HCC); Moderate episode of recurrent major depressive disorder (HCC); Dyslipidemia; Postsurgical hypothyroidism; Nausea; Fibromyalgia; Abnormality of gait; Restless legs syndrome; Gastroesophageal reflux disease with esophagitis without hemorrhage; Spinal stenosis of lumbar region without neurogenic claudication; Atherosclerosis of [place] coronary artery of [place] heart without angina pectoris; Other abnormalities of gait and mobility; Anxiety state; Iron deficiency; Hydronephrosis of right kidney; [place] filter in place; Recurrent deep vein thrombosis (DVT) of both lower extremities (HCC); History of pulmonary embolus (PE) Allergies Active Allergy Reactions Criticality Noted Date [...] as of this encounter (statuses as of 07/21/2024) Medications Medication Sig Dispensed Refills Start Date [...] G7 Sensor Use as directed. (From [facility]) 06/01/20 Active BD Pen Needle Short U/F [...] IN THE EVENING 60 mL 3 08/04/20 23 Active Additional Information Patient taking differently: 39 Units Subcutaneous DAILY(190), Per [facility] pharmacist, Reported on 06/26/2024 Atorvastatin Calcium 20 MG Oral Tablet (Lipitor) [...] dexcom failure 100 Strip 02/02/20 24 Active Magnesium Oxide 400 MG [...] AT BEDTIME 30 Tablet 02/22/20 24 Active Levothyroxine Sodium 200 MCG Oral Tablet (Levoxyl)Indicatio ns:Postsurgical hypothyroidism Take 1 Tablet by mouth daily first thing in the morning. (at least 30 min prior to breakfast or other meds) 30 Tablet 02/24/20 24 Active Senna-Time S 8.6-50 MG Oral [...] MORNING 30 Capsule 5 04/18/20 24 Active Furosemide 40 MG Oral Tablet (Lasix)Indications :Chronic diastolic congestive heart failure (HCC) Take 1.5 Tablets by mouth 2 times a day. 84 Tablet 5 05/17/20 24 Active DULoxetine HCl 30 MG Oral Capsule Delayed Release Particles (Cymbalta)Indicati ons:Fibromyalgia,M ajor depressive disorder, recurrent, moderate (HCC) Take 1 Capsule by mouth in the morning. 28 Capsule 5 05/17/20 24 Active traZODone HCl 50 MG Oral Tablet (Desyrel) Take 1 Tablet by mouth at bedtime. 30 Tablet 5 05/24/20 24 Active clonazePAM 0.5 MG Oral Tablet (KlonoPIN)Indicati ons:Restless legs syndrome,Anxiety state TAKE 1 TABLET BY MOUTH THREE TIMES A DAY 84 Tablet 06/14/20 24 Active Cholecalciferol 25 MCG (1000 UT) Oral Capsule Take 1 capsule by mouth once daily in the morning 30 Capsule 5 06/12/20 24 Active Dicyclomine HCl 20 MG Oral Tablet (Bentyl)Indication s:Irritable bowel syndrome, unspecified type Take 1 Tablet by mouth 4 times a day as needed for Cramping. 180 Tablet 3 06/19/20 24 Active traMADol HCl 50 MG Oral Tablet (Ultram)Indication s:Lumbar radiculopathy,Prim elif osteoarthritis of left knee Take 1 Tablet by mouth every 8 hours as needed for Pain, Severe. 90 Tablet 06/20/20 24 Active Ondansetron HCl 4 MG Oral Tablet (Zofran) Take 1 Tablet by mouth every 6 hours as needed for Nausea. 024 Discontinued Gabapentin 300 MG Oral Capsule (Neurontin)Indicat ions:Fibromyalgia TAKE 2 CAPSULES BY MOUTH IN THE MORNING, NOON AND BEDTIME] 168 Capsule 5 02/22/20 24 024 Discontinued Mounjaro 5 MG/0.5ML Subcutaneous Solution Pen-injector (Tirzepatide) Inject 5 mg under the skin once a week. 2 mL 11 03/12/20 24 024 Discontinued(Me dication/Dose Changed) Doxycycline Hyclate 100 MG Oral Capsule Take 1 Capsule by mouth in the morning and 1 Capsule before bedtime. 03/26/20 24 024 Discontinued(En d of Procedure) oxyCODONE HCl 5 MG Oral Tablet (Oxy IR)Indications:Lum bar radiculopathy,Spin al stenosis of lumbar region without neurogenic claudication Take 1 Tablet by mouth every 6 hours as needed for Pain, Severe. 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 rx documented as of this encounter (statuses as of 07/21/2024) Resolved Problems Problem Noted Date Diagnosed Date [...] as of this encounter (statuses as of 07/21/2024) Immunizations Name Administration Dates Next Due COVID-19 mRNA, LNP-s, No Pre serve, 2-Dose Series (RxResults) 01/08/2021,12/18/2020 COVID-19, LNP-s, No Preserve , Navarro-sucrose, Ages 12+ (Pfizer) 2022,10/01/2021 COVID-19, MRNA-LNP, 23-24, P F, 30 MCG/0.3 mL, 12 YRS AND ABOVE, IM ([facility]) 07/26/2023 Pneumococcal Conjugate Vacci ne, 20-valent ([id number]) 03/12/2022 Pneumococcal Polysaccharide PPV23 (Pneumovax) 08/22/2009,06/15/2006 RSV [...] Sign Reading Time Taken Comments Blood Pressure 116/56 06/26/2024 1:58 PM EDT Pulse 80 06/26/2024 1:58 PM EDT Temperature 35.8 C (96.4 F) 06/26/2024 1:58 PM ED T Respiratory Rate 16 06/26/2024 1:58 PM EDT Oxygen Saturation 95% 06/26/2024 1:58 PM EDT Inhaled Oxygen Concentration - - Weight 125.1 kg (275 lb 14.4 oz) 06/26/2024 1:58 PM EDT Height 161.9 cm (5' 3.75") 06/26/2024 1:58 PM ED T Body Mass Index 47.73 06/26/2024 1:58 PM EDT documented in this encounter Progress Notes * Galdino Andujar, DO - 06/26/2024 2:20 PM EDT SUBJECTIVE: Stephanie Camp is a 69 year [...] wearing 3 L oxygen at all times. Patient Active Problem List Diagnosis Dyslipidemia Postsurgical hypothyroidism ELISSA (obstructive sleep apnea) Venous insufficiency Essential hypertension with goal blood pressure less than 140/90 History of pulmonary embolus (PE) [place] filter in place Fibromyalgia Abnormality of gait Restless legs syndrome Gastroesophageal reflux disease with esophagitis Controlled substance agreement signed Chronic heart failure with preserved ejection fraction (HFpEF) (HCC) Lumbar radiculopathy 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 3b chronic kidney disease (HCC) Hyperparathyroidism, secondary renal (HCC) Vasculitis (HCC) Primary osteoarthritis of left knee Spinal stenosis of lumbar region without neurogenic claudication 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) Atherosclerosis of [place] coronary artery without angina pectoris Carotid artery stenosis, asymptomatic, right Encounter for long-term current use of medication Type 2 diabetes mellitus with hemoglobin A1c goal of less than 8.0% ([facility]) Recurrent deep vein thrombosis (DVT) of both lower extremities ([facility]) Chronic hypoxemic respiratory failure ([facility]) Chronic kidney disease, stage 3b ([facility]) ILD (interstitial lung disease) ([facility]) Moderate episode of recurrent major depressive disorder ([facility]) Primary osteoarthritis of both knees Type 2 diabetes mellitus with stage 3b chronic kidney disease, with long-term current use of insulin ([facility]) Anxiety state Sacroiliitis, not elsewhere classified ([facility]) DM peripheral angiopathy ([facility]) Morbid (severe) obesity due to excess calories ([facility]) Iron deficiency Hydronephrosis of right kidney VRE (vancomycin-resistant Enterococci) infection Body mass index (BMI) of 45.0 to 49.9 in adult ([facility]) Current Outpatient Medications Medication Sig Dispense Refill [...] Dexcom G7 Sensor Use as directed. (From [facility]) BD Pen Needle Short U/F 31G [...] IN THE EVENING (Patient taking differently: Inject 39 Units under the skin every evening. Per [facility] pharmacist) 60 mL 3 Atorvastatin Calcium 20 MG Oral Tablet (Lipitor) Take 1 Tablet by mouth in the morning. Prescribed by Carmen Waggoner PA-C. (Patient not taking: Reported on 06/26/2024) Ondansetron HCl 4 MG Oral Tablet (Zofran) Take 1 Tablet by mouth every 6 hours as needed for Nausea. Triamcinolone Acetonide 0.5 % External Cream (Aristocort) [...] the morning and 1 Tablet before bedtime. (Patient not taking: Reported on 06/26/2024) OneTouch Verio In Vitro Strip (Glucose Blood) Use up to 4 times a day E11.9 in case of dexcom failure 100 Strip 11 Gabapentin 300 MG Oral Capsule (Neurontin) TAKE 2 CAPSULES BY MOUTH IN THE MORNING, NOON AND BEDTIME] 168 Capsule 5 Magnesium Oxide 400 MG Oral Tablet [...] MORNING AND AT BEDTIME 60 Tablet 5 Doxycycline Hyclate 100 MG Oral Capsule Take 1 Capsule by mouth in the morning and 1 Capsule beforebedtime. (Patient not taking: Reported on 05/18/2024) Potassium Chloride Ayleen ER 20 MEQ Oral [...] the skinonce a week. 2 mL 11 Current Facility-Administered Medications Medication Dose Route Frequency Provider Last Rate Last Admin ondansetron (Zofran) tab 4 mg 4 mg Oral Once The patient's medication list was reviewed and updated as needed. Past Medical History: Diagnosis Date ELSIE (acute kidney injury) ([facility]) 06/12/2018 Allergic rhinitis due to other allergen Chronic hypoxemic respiratory failure ([facility]) 01/07/2022 Diverticulosis of colon 01/28/2006 Essential hypertension with goal blood pressure less than 140/90 02/22/2014 ELLIE (generalized anxiety disorder) 09/13/2009 Goiter [place] filter in place 08/19/2014 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[facility]) 08/22/2009 History of pulmonary embolus (PE) 07/16/2014 HTN, goal below 140/90 Hydronephrosis Impetigo 09/27/2018 Obesity, BMI not known Perforation of intestine ([facility]) 1996 COLON -- 1996 Pneumonia in aspergillosis(484.6) 09/14/2009 Recurrent deep vein thrombosis (DVT) of both lower extremities ([facility]) 01/07/2022 Sleep apnea, obstructive Spinal stenosis of lumbar region without neurogenic claudication 07/15/2020 Spontaneous pneumothorax 09/14/2009 Statin intolerance 07/16/2014 Type 2 diabetes mellitus with hemoglobin A1c goal of less than 8.0% ([facility]) 01/07/2022 Past Surgical History: Procedure Laterality Date ARTHROPLASTY KNEE TOTAL Right 07/24/2014 R COLONOSCOPY, DIAGNOSTIC (RECTUM) 02/18/2016 normal, repeat 10 yrs/[facility] COLONOSCOPY, GI REFERRAL OP 01/28/2006 diverticulosis--repeat 10 years INCISION OF [place], PLANNED 06/03/2011 TRACHEOSTOMY PLANNED performed by DANNY HOLDER at [place] [facility] INJECT DX/THER SUBSTANCE INTERLAMINAR LUMBAR/SACRAL W IMAGE GUIDE 05/26/2020 INJECTION SPINE LUMBAR OR SACRAL performed by Raj Ahn, DO at OR [facility] INJECT DX/THER SUBSTANCE INTERLAMINAR LUMBAR/SACRAL W IMAGE GUIDE 05/14/2021 INJECTION SPINE LUMBAR OR SACRAL performed by Raj Ahn, DO at OR [facility] INJECT DX/THER SUBSTANCE INTERLAMINAR LUMBAR/SACRAL W IMAGE GUIDE 08/13/2021 INJECTION SPINE LUMBAR OR SACRAL performed by Raj Ahn DO at OR [facility] KNEE ARTHROSCOPY/DEBRIDEMENT 07/27/[address] PERMANENT GASTROSTOMY TUBE 09/06/2009 GASTROSTOMY WITH CONSTUCTION GASTRIC TUBE performed by AMADOU NUNEZ at [facility] REMOVAL OF THYROID GLAND 06/15/2011 THYROIDECTOMY INCLUDING SUBSTERNAL THYROID CERVICAL APPROACH performed by DANNY HOLDER at [facility] REMOVE GALLBLADDER 09/06/2009 CHOLECYSTECTOMY performed by AMADOU NUNEZ at [facility] REPAIR RECURRENT INCISIONAL HERNIA 09/26/1998 REVISION OF COLOSTOMY, SIMPLE 09/26/1997 SACROILIAC JOINT INJECT W/GUIDANCE 07/28/2020 INJECTION SACROILIAC JOINT performed by Inyokern Callum Ahn DO at OR [facility] SACROILIAC JOINT INJECT W/GUIDANCE 03/03/2022 INJECTION SACROILIAC JOINT performed by Raj Callum Ahn, DO at OR [facility] SACROILIAC JOINT INJECT W/GUIDANCE 05/04/2023 INJECTION SACROILIAC JOINT performed by Raj Ahn DO at OR [facility] SUTURE, LARGE INTESTINE W/COLOSTOMY 09/26/1996 perforation R colon with colostomy TRANSCATH STENT-CAROTID ARTERY, W/EMBOL PROTECTION Right 09/06/2023 Dr. Tang VENA CAVA FILTER/LIGATION/CLIP 08/19/2009 [place] filter placement through the right femoral 08/19/[address] Lerma [address] [facility] Review of patient's allergies indicates: Allergen [...] Negative for chills, fever and unexpectedweight change. Respiratory: Positive for shortness of breath. Negative for cough and wheezing. Cardiovascular: Negative for chest pain, palpitations and leg swelling. Gastrointestinal: Positive for abdominal pain and nausea. Negative for blood in stool, constipation, diarrhea and vomiting. Genitourinary: Negative for dysuria, frequency and hematuria. Musculoskeletal: Positive for arthralgias, back pain, gait problem and myalgias. Neurological: Negative for dizziness, syncope and headaches. Psychiatric/Behavioral: Positive for decreased concentration, dysphoric mood and sleep disturbance.Negative for confusion and self-injury. OBJECTIVE: BP 116/56 | Pulse 80 | Temp 35.8 C (96.4 F) | Resp 16 | Ht 1.619 m (5' 3.75") | Wt 125.1 kg (275 lb 14.4 oz) | LMP 03/11/2003 | SpO2 95% | BMI 47.73 kg/m | BSA 2.37 m Physical Exam Vitals and nursing note [...] 3b chronic kidney disease (HCC) (Primary) Continue Furosamide Type 2 diabetes mellitus with stage 3b chronic kidney disease, with long-term current use of insulin (HCC) - HEMOGLOBIN A1C; Future; Expected date: 06/26/2024 - CBC WITH WBC DIFFERENTIAL; Future; Expected date: 06/26/2024 - COMPREHENSIVE METABOLIC PANEL; Future; Expected date: 06/26/2024 Mounjaro increased to 7.5 mg weekly Continue Tresiba and Novolog Chronic hypoxemic respiratory failure (HCC) Continue Oxygen ILD (interstitial lung disease) ([facility]) DM peripheral angiopathy ([facility]) - TELEMEDICINE DIABETIC EYE - ADULT/PEDS OPHTHALMOLOGY/OPTOMETRY REFERRAL OP Continue ASA Moderate episode of recurrent major depressive disorder (HCC) - ADULT/PEDS PSYCHIATRY REFERRAL OP Continue Duloxetine Dyslipidemia Continue Atorvastatin Postsurgical hypothyroidism Continue Levothyroxine Nausea - ondansetron (Zofran) tab 4 mg Fibromyalgia Continue Tramadol, Duloxetine, and gabapentin Stop Oxycodone Abnormality of gait - PHYSICAL THERAPY REFERRAL OP Restless legs syndrome Continue Ropinirole Gastroesophageal reflux disease with esophagitis without hemorrhage Continue Omeprazole Spinal stenosis of lumbar region without neurogenic claudication - PHYSICAL THERAPY REFERRAL OP Atherosclerosis of [place] coronary artery of [place] heart without angina pectoris Continue ASA Other abnormalities of gait and mobility Anxiety state Continue Clonazepam Iron deficiency Hydronephrosis of right kidney Right Ureter Stent change per Urology at [facility] [place] filter in place Recurrent deep vein thrombosis (DVT) of both lower extremities (HCC) Continue Apixaban History of pulmonary embolus (PE) Other orders - INFLUENZA VAC., TRIVALENT, HD, PF, 65 AND ABOVE, 0.5 ML IM (FLUZONE HD) I spent a total of 40-54 minutes (exact time 42 mins) on the date of service in preparation, delivery, and documentation of the care provided to Stephanie Camp excluding any time spent in the performance of separately billed services or time spent by another provider/QHP. Follow Up: Return in about 1 month (around 07/27/2024), or if symptoms worsen or fail to improve. Galdino Andujar DO 2:20 PM 06/26/2024 * Shira Gross LPN - 06/26/2024 1:57 PM EDT Images from the original note were not included. The importance of having a yearly diabetic eye exam has been discussed with patient. Order and/or Referral placed along with patient instructions. Provider made aware. Shira Gross LPN Diabetic Retinopathy: Evaluating Your Eyes Diabetic retinopathy [...] of the retina using light waves. This shows ifthere is fluid leaking into certain parts of [...] information about this test. Date Last Reviewed: 02/25/201619995220-1794 [employer]. [address] [place] [address], [place] [address]. All rights reserved. This information is not intended as a substitute for professional medical care. Always follow your healthcare professional's instructions. documented in this encounter Miscellaneous Notes * Result Encounter Note - Shira Gross LPN - 07/05/2024 3:09 PM EDT See other encounter patient was told and will follow instructions documented in this encounter Plan of Treatment Upcoming Encounters Date Type Department Care Team (Late st Contact Info) Description 07/31/2024 2:20 PM EST Office Visit Family Practice [address] [place] [address] [address] [place] [phone] Galdino Andujar DO [address] [facility] [place] [address] 09/12/2024 11:00 AM EST Office Visit Nephrology, [facility] [place] [address] Erik Lenz MD 200 [facility] [place] [address] 01/15/2025 1:30 PM EDT [facility] [place] [address] Marjorie Powell PA-C 132 [facility] [place] [address] 02/19/2025 1:00 PM EDT Nurse Only Family Practice 65 [facility] [address] [place] [phone] Shira De La Rosa, LEXI [address] [facility] [place] [phone] 06/13/2025 1:30 PM EDT Imaging Radiology [facility] [address] [facility] [place] [address] Scheduled Procedures Name Priority Associated Diagnoses Date/Ti wy COLONOSCOPY FLEXIBLE PROXIMAL DIAGNOSTIC Recall Colon cancer screening Scheduled Referrals Name Type Priority Associated Diagnoses Orde r Schedule ADULT/PEDS OPHTHALMOLOGY/OPTOME TRY REFERRAL OP Referral Within 30 days (routine) DM peripheral angiopathy (HCC) Ordered: 06/26/2024 ADULT/PEDS PSYCHIATRY REFERRAL OP Referral Within 10 days (routine) Moderate episode of recurrent major depressive disorder (HCC) Ordered: 06/26/2024 PHYSICAL THERAPY REFERRAL OP Referral Within 10 days (routine) Abnormality of gait Spinal stenosis of lumbar region without neurogenic claudication Ordered: 06/26/2024 Health Maintenance Due Date Last [...] Additional history exists CKD PHOS USE SMARTSET 79253 12/26/2024 04/0 10/2023, 02/11/2023, 01/07/2022, Additional history exists Adult Wellness Visit 02/13/2025 02/14/2024, 08/05/20 22 Mammogram 06/12/2025 06/12/2024, 05/27, 04/21/2023, Additional history exists CKD HGB USE SMARTSET 67339 06/26/202506/26, 06/26/2024, 05/18/2024, Additional history exists Diabetic [...] Date/Time Associated Diagnosis Comments DIFFERENTIAL, AUTOMATED Routine 06/26/2024 2:30 PM EDT Type 2 diabetes mellitus with stage 3b chronic kidney disease, with long-term current use of insulin (HCC) HEMOGLOBIN A1C Routine 06/26/2024 2:30 PM EDT Type 2 diabetes mellitus with stage 3b chronic kidney disease, with long-term current use of insulin (HCC) COMPREHENSIVE METABOLIC PANEL Routine 06/26/2024 2:30 PM EDT Type 2 diabetes mellitus with stage 3b chronic kidney disease, with long-term current use of insulin (HCC) CBC Routine 06/26/2024 2:30 PM EDT Type 2 diabetes mellitus with stage 3b chronic kidney disease, with long-term current use of insulin (HCC) CBC Routine 06/26/2024 2:30 PM EDT Type 2 diabetes mellitus with stage 3b chronic kidney disease, with long-term current use of insulin (HCC) TELEMEDICINE DIABETIC EYE Routine 06/26/2024 DM peripheral angiopathy (HCC) documented in this encounter Results * (ABNORMAL) DIFFERENTIAL, AUTOMATED (06/26/2024 2:30 PM EDT) WBC 11.93(H) 4.00 - 10.80 K/uL 06/26/2024 11:19 PM EDT [facility] Neutrophils % 69.9 40.0 - 75.0 % 06/26/2024 11:19 PM EDT [facility] Lymphocytes % 19.2 18.0 - 42.0 % 06/26/2024 11:19 PM EDT [facility] Monocytes % 6.0 1.0 - 11.0 % 06/26/2024 11:19 PM EDT [facility] Eosinophils % 3.5 0.0 - 6.0 % 06/26/2024 11:19 PM EDT [facility] Basophils % 0.7 0.0 - 2.0 % 06/26/2024 11:19 PM EDT [facility] Immature Granulocytes % 0.7 0.0 - 2.0 % 06/26/2024 11:19 PM EDT [facility] Absolute Neutrophils 8.35(H) 1.80 - 7.70 K/uL 06/26/2024 11:19 PM EDT [facility] Absolute Lymphocytes 2.29 1.00 - 4.80 K/ul 06/26/2024 11:19 PM EDT [facility] Absolute Monocytes 0.71 0.00 - 1.10 K/uL 06/26/2024 11:19 PM EDT [facility] Absolute Eosinophils 0.42 0.00 - 0.70 K/uL 06/26/2024 11:19 PM EDT [facility] Absolute Basophils 0.08 0.00 - 0.20 K/uL 06/26/2024 11:19 PM EDT [facility] Absolute Immature Granulocytes 0.08 0.00 - 0.20 K/uL 06/26/2024 11:19 PM EDT [facility] Blood Venous blood specimen / Unknown Venipuncture / Unknown 06/26/2024 2:30 PM EDT 06/26/2024 2:30 PM EDT Galdino Andujar DO LAB BLOOD ORDERABLES [facility] [address] [place] [address] * (ABNORMAL) CBC (06/26/2024 2:30 PM EDT) WBC 11.93(H) 4.00 - 10.80 K/uL 06/26/2024 11:19 PM EDT [facility] RBC 4.50 3.85 - 5.15 M/uL 06/26/2024 11:19 PM EDT [facility] HGB 13.0 12.0 - 15.3 g/dL 06/26/2024 11:19 PM [facility] HCT 42.2 36.0 - 45.2 % 06/26/2024 11:19 PM [facility] MCV 93.8 81.5 - 97.5 fL 06/26/2024 11:19 PM [facility]T [facility] MCH 28.9 27.0 - 34.0 pg 06/26/2024 11:19 PM EDT LABORATORY [facility] MCHC 30.8 32.0 - 36.0 g/dL 06/26/2024 11:19 PM [facility]T [facility] RDW 14.6 11.5 - 15.5 % 06/26/2024 11:19 PM EDT LAB[facility] GM PLT 343 140 - 400 K/uL 06/26/2024 11:19 PM EDT LABORATORY GM MPV 10.3 6.6 - 11.1 fL 06/26/2024 11:19 PM EDT LABORATORY [facility] nRBCs 0 <=0 /100 WBCs 06/26/2024 11:19 PM EDT LABORATORY GM Blood Venous blood specimen / Unknown Venipuncture / Unknown 06/26/2024 2:30 PM EDT 06/26/2024 2:30 PM EDT Galdino Andujar DO LAB BLOOD ORDERABLES [facility] [address] [place] [address] * (ABNORMAL) COMPREHENSIVE METABOLIC PANEL (06/26/2024 2:30 PM EDT) BUN 32(H) 6 - 20 mg/dL 06/27/2024 3:53 AM [facility]T [facility] CREATININE 1.8(H) 0.5 - 1.0 mg/dL 06/27/2024 3:53 AM EDT [facility] EGFR 29(L) >=60 mL/min 06/27/2024 3:53 AM EDT LABORATORY C Comment:eGFR is calculated b ased on the CKD-EPI 2020 equation. SODIUM 136 135 - 146 mmol/L 06/27/2024 3:53 AM EDT [facility] POTASSIUM 4.7 3.5 - 5.1 mmol/L 06/27/2024 3:53 AM EDT [facility] CHLORIDE 95(L) 98 - 107 mmol/L 06/27/2024 3:53 AM EDT LABOR[facility] C CO2 29 22 - 32 mmol/L 06/27/2024 3:53 AM EDT LABOR[facility] C ANION GAP 12 7 - 15 mmol/L 06/27/2024 3:53 AM EDT LAB[facility] C GLUCOSE 177(H) 70 - 120 mg/dL 06/27/2024 3:53 AM EDT [facility] Albumin 4.1 3.8 - 5.0 g/dL 06/27/2024 3:53 AM EDT [facility] AST 15 10 - 35 U/L 06/27/2024 3:53 AM EDT LABORATORY C Alkaline Phosphatase 134(H) 35 - 130 U/L 06/27/2024 3:53 AM EDT [facility] Bilirubin, Total 0.3 <=1.2 mg/dL 06/27/2024 3:53 AM EDT [facility] CALCIUM 9.6 8.4 - 10.2 mg/dL 06/27/2024 3:53 AM EDT [facility] Protein 7.4 6.0 - 8.3 g/dL 06/27/2024 3:53 AM EDT [facility] ALT 9(L) 10 - 35 U/L 06/27/2024 3:53 AM EDT LABOR[facility] C Blood Venous blood specimen / Unknown Venipuncture / Unknown 06/26/2024 2:30 PM EDT 06/26/2024 2:30 PM EDT Galdino Andujar DO LAB BLOOD ORDERABLES Performing Organization Address [facility] Co de Phone Number LABORATORY [facility] [address] [place] [address] * (ABNORMAL) HEMOGLOBIN A1C (06/26/2024 2:30 PM EDT) Hemoglobin A1C 7.8(H) 4.0 - 5.6 % 06/26/2024 11:45 PM EDT LABORATORY [facility] Comment:The use of HbA1c to monitor glycemic status is based on normal hemoglobin and HbA composition. This test should not be used in patients with abnormal hemoglobin that affects the half life of the red blood cell or the in vivo glycation rates. Estimated Average Glucose 177(H) <126 mg/dL 06/26/2024 11:45 PM EDT LABORATORY [facility] Blood Venous blood specimen / Unknown Venipuncture / Unknown 06/26/2024 2:30 PM EDT 06/26/2024 2:30 PM EDT Galdino Andujar DO LAB BLOOD ORDERABLES Performing Organization Address [facility] Co de Phone Number LABORATORY [address] [address] * TELEMEDICINE DIABETIC EYE (06/26/2024) 06/26/2024 Galdino Andujar DO DIGITAL PHOTOGRAPHY documented in [...] (interstitial lung disease) (HCC) Postinflammatory pulmonary fibrosis DM peripheral angiopathy (HCC) Type II or unspecified type diabetes mellitus with peripheral circulatory disorders, not stated as uncontrolled Moderate episode of recurrent major depressive disorder (HCC) Dyslipidemia Other and unspecified hyperlipidemia Postsurgical hypothyroidism Nausea Nausea alone Fibromyalgia Mylagia and myositis, unspecified Abnormality of gait Restless legs syndrome Restless legs syndrome (RLS) Gastroesophageal reflux disease with esophagitis without hemorrhage Spinal stenosis of lumbar region without neurogenic claudication Spinal stenosis, lumbar region, without neurogenic claudication Atherosclerosis of [place] coronary artery of [place] heart without angina pectoris Other abnormalities of gait and mobility Anxiety state Anxiety state, unspecified Iron deficiency Iron deficiency anemia, unspecified Hydronephrosis of right kidney Hydronephrosis Frank filter in place Other postprocedural status Recurrent deep vein thrombosis (DVT) of both lower extremities (HCC) History of pulmonary embolus (PE) Personal history of pulmonary embolism Screening mammogram for breast cancer documented in this encounter Administered Medications Inactive Administered Medications - up to 3 most recent administrations Medication Order MAR Action Action Date Dose Rate Site ondansetron (Zofran) tab 4 mg 4 mg, Oral, ONCE, On Tue06/26/24 at 1500, For 1 dose Given 06/26/2024 3:45 PM EDT 4 mg Other-Specify documented in this encounter Advance Directives Documents on File Type Date Recorded Patient Science Job Titles Expl anation POLST 03/19/2020 4:25 PM POLST [...] (no specific identity) Health Care Power of Airplane Inspector Princess Allen Other - (no specific identity) Health Care Power of Airplane Inspector Care Teams Signalman Relationship Specialty Start Date End Date Galdino Andujar DO [address] [place] [place] [address] PCP - General Internal Medicine 03/08/24 documented as of this encounter
--- OUTSIDE RECORDS SUMMARY | 2024-12-09 19:32 | External Medical Summary | Summary of Care ---
Author Name Unknown Organization [facility] Address [address] [place] [address] Phone [phone] Care Team Providers Care Rat Poisoner Name Role Phone Galdino Andujar DO Primary Care Provider [phone] Encounter Details Date Type Department Care Team (Late st Contact Info) Description 07/23/2024 Orders Only Family Practice [address] [place] [address] [place] [address] Galdino Andujar DO [address] [place] [address] Allergies Active Allergy Reactions Criticality Noted Date [...] as of this encounter (statuses as of 07/23/2024) Medications Medication Sig Dispensed Refills Start Date [...] [facility]) Inject 8 units with breakfast and 8units lunch and 10 units with dinner + sliding scale 1 units for every 25 units BG > 150. 150 mL 3 05/16/2023 Active Dexcom G7 Sensor Use as directed. (From [facility]) 06/01/2023 Active BD Pen Needle Short [...] (FORMER[facility]) INJECT 50 UNITS UNDER THE SKIN IN THE EVENING 60 mL 3 08/04/2023 Active Additional Information Patient taking differently: 41 Units Subcutaneous DAILY(1900), Per [facility] pharmacist, Reported on 06/29/2024 Atorvastatin [...] times a day. 84 Tablet 05/17/2024 Active DULoxetine HCl 30 MG Oral [...] as of this encounter (statuses as of 07/23/2024) Active Problems Problem Noted Date Diagnosed Date [...] by vascular, reports upcoming carotid surgery at [facility]. She states she has rx for atorvastatin and plavix to bean picker machine operator at pharmacy. 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 pectoris 12/31/2021 [...] Assessment & Plan: Home PT to start [place] filter in place 08/19/2014 History of pulmonary [...] given by vascular, has to bean picker machine operator rx documented as of this encounter (statuses as of 07/23/2024) Resolved Problems Problem Noted Date Diagnosed Date [...] as of this encounter (statuses as of 07/23/2024) Immunizations Name Administration Dates Next Due COVID-19 mRNA, LNP-s, No Pre serve, 2-Dose Series (RealtyAPX) 01/08/2021,12/18/2020 COVID-19, LNP-s, No Preserve , Navarro-sucrose, Ages 12+ (Pfizer) 2022,10/01/2021 COVID-19, MRNA-LNP, 23-24, P F, 30 MCG/0.3 mL, 12 YRS AND ABOVE, IM (PFIZER-Comirnaty) 07/26/2023 Pneumococcal Conjugate Vacci ne, 20-valent ([id number]) 03/12/2022 Pneumococcal Polysaccharide PPV23 (Pneumovax) 08/22/2009,06/15/2006 RSV [...] 2:20 PM EST Office Visit Family Practice [address] [place] [address] [facility] [phone] Galdino Andujar DO [address] [place] [address] 09/12/2024 11:00 AM EST Office Visit Nephrology, [facility] [address] [place] [address] Erik Lenz MD [address] [place] [address] 01/15/2025 1:30 PM EDT Office Visit Cardiology, [facility] [address] [facility] [place] [address] Marjorie Powell PA-C 132 [facility] [place] [address] 02/19/2025 1:00 PM EDT Nurse Only Family Practice [address] [place] [address] [facility] [phone] Shira De La Rosa, LEXI [address] [place] [phone] 06/13/2025 1:30 PM EDT Imaging Radiology [address] 132 [facility] [place] [address] Scheduled Procedures Name Priority [...] Additional history exists CKD PHOS USE SMARTSET 30146 12/26/2024 04/0 10/2023, 02/11/2023, 01/07/2022, Additional history exists Adult Wellness Visit 02/13/2025 02/14/2024, 08/05/20 22 Mammogram 06/12/2025 06/12/2024, 05/27, 04/21/2023, Additional history exists CKD HGB USE SMARTSET 14878 06/26/202506/26, 06/26/2024, 05/18/2024, Additional history exists Depression Monitoring 07/19/2025 07/19/2024, 024 Diabetic Eye Exam 07/23/2025 07/06/2024, , 07/06/2024, Additional history exists Colonoscopy 02/17/2026 02/18/2016, 01/25, [...] Associated Diagnosis Comments DIABETIC EYE EXAM Routine 07/06/2024 documented in this encounter Results * DIABETIC EYE EXAM (07/06/2024) 07/06/2024 History Per Patient OTHER OUTSIDE LAB (SEE SCANNED REPORT) documented in this encounter Advance Directives Documents on File Type Date Recorded Patient Qa Test Analyst Expl anation POLST 03/19/2020 4:25 PM [...] (no specific identity) Health Care Power of It Systems Analyst Consultant Princess Allen Other - (no specific identity) Health Care Power of It Systems Analyst Consultant Care Teams Rat Poisoner Relationship Specialty Start Date End Date Galdino Andujar DO [address] [place] [address] PCP - General Internal Medicine 03/08/24 documented as of this encounter
--- OUTSIDE RECORDS SUMMARY | 2024-12-09 19:32 | External Medical Summary | Summary of Care ---
Author Name Unknown Organization [facility] Address [address] [place] [address] Phone [phone] Care Team Providers Care Mobile Ui Designer Name Role Phone PratimaGaldino DO Primary Care Provider [phone] Encounter Details Date Type Department Care Team (Late st Contact Info) Description 07/21/2024 Orders Only PATIENT PORTAL DO NOT DELETE THIS DEPT USED BY [place] [id number] Allergies Active Allergy Reactions Criticality Noted Date [...] G7 Sensor Use as directed. (From [facility]) 06/01/2023 Active BD Pen Needle Short U/F [...] taking differently: 41 Units Subcutaneous DAILY(1900), Per [facility] pharmacist, Reported on 06/29/2024 Atorvastatin Calcium 20 [...] by mouth in the morning. 28 Capsule 05/17/2024 Active traZODone HCl 50 MG Oral [...] by vascular, reports upcoming carotid surgery at [facility]. She states she has rx [...] 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 Atherosclerosis of [place] co ronary artery without angina pectoris 12/31/2021 [...] Assessment & Plan: Home PT to start [place] filter in place 08/19/2014 History of pulmonary [...] mRNA, LNP-s, No Pre serve, 2-Dose Series (TenKod) 01/08/2021,12/18/2020 COVID-19, LNP-s, No Preserve , Navarro-sucrose, Ages 12+ (Pfizer) 2022,10/01/2021 COVID-19, MRNA-LNP, 23-24, P F, 30 MCG/0.3 mL, 12 YRS AND ABOVE, IM (PFIZER-Comirnaty) 07/26/2023 Pneumococcal Conjugate Vacci ne, 20-valent ([id number]) 03/12/2022 Pneumococcal Polysaccharide PPV23 (Pneumovax) 08/22/2009,06/15/2006 RSV [...] Hd (Fluzone Hd) 06/21/2023,06/18/2022,07/20/2021 Seasonal Influenza, Quadriva tad, No Preserve, IM 06/24/2016,07/24/2015 Varicella Zoster Vaccine [...] 2:20 PM EST Office Visit Family Practice [address] [place] [address] 293 [place] [phone] Galdino Andujar DO 293 [facility] [place] [address] 09/12/2024 11:00 AM EST Office Visit Nephrology, Gregorio Champion [address] [place] [address] rEik Lenz MD [address] [place] [address] 01/15/2025 1:30 PM EDT Office Visit Cardiology, [facility] [address] Marjorie Powell, EVIN 132 [place] [address] 02/19/2025 1:00 PM EDT Nurse Only Family Practice [address] [place] [address] [facility] [phone] Shira De La Rosa, LEXI 293 [place] [phone] 06/13/2025 1:30 PM EDT Imaging Radiology [facility] 1st [facility] 132 [facility] [place] [address] Scheduled Procedures Name Priority Associated Diagnoses Date/Ti [...] Additional history exists CKD PHOS USE SMARTSET 16374 12/26/2024 04/0 10/2023, 02/11/2023, 01/07/2022, Additional history exists Adult Wellness Visit 02/13/2025 02/14/2024, 08/05/20 22 Mammogram 06/12/2025 06/12/2024, 05/27, 04/21/2023, Additional history exists CKD HGB USE SMARTSET 13869 06/26/202506/26, 06/26/2024, 05/18/2024, Additional history exists Diabetic [...] Documents on File Type Date Recorded Patient Sliver Lap Machine Tender Expl anation POLST 03/19/2020 4:25 [...] Health Care Power of Corporation Officer Princess Other - (no specific identity) Health Care Power of Corporation Officer Care Teams Mobile Ui Designer Relationship Specialty Start Date End Date Galdino Andujar DO [address] [place] [address] PCP - General Internal Medicine 03/08/24 documented as of this encounter
--- OUTSIDE RECORDS SUMMARY | 2024-12-09 19:33 | External Medical Summary | Summary of Care ---
Author Name Unknown Organization [facility] Address [address] [place] [address] Phone [phone] Care Team Providers Care Transport Specialist Name Role Phone Galdino Andujar DO Primary Care Provider [phone] Reason for Visit * Reason Onset Date Comments Medication Administration 06/26/2024 Flu an d/or Pneumo Inj Dosage Adjustment In Person (Anticoag Clinic) Diabetes Follow-Up Encounter Details Date Type Department Care Team (Late st Contact Info) Description 06/26/2024 1:10 PM EDT Office Visit Family Practice 65 [facility] 293 [place] [address] College, Pharmacist [address] [address] Type 2 diabetes mellitus with stage 3b chronic kidney disease, with long-term current use of insulin (HCC)*; Need for prophylactic vaccination and inoculation against influenza Allergies Active Allergy Reactions Criticality Noted Date [...] as of this encounter (statuses as of 06/29/2024) Medications Medication Sig Dispensed Refills Start Date End Date Status DEMIAN BISWAS LANCBETTY 33G [facility] Check blood sugars 3-4 times daily 180 [...] Dexcom G7 Sensor [facility]. [facility] 3 Active BD Pen Needle Short U/F [...] taking differently: 41 Units Subcutaneous DAILY(1900), Per [facility] pharmacist, Reported on 06/29/2024 Atorvastatin Calcium 20 MG Oral Tablet (Lipitor) Take 1 Tablet by mouth in the morning. Prescribed by Carmen Waggoner PA-C. Active Ondansetron HCl 4 MG Oral Tablet (Zofran) Take 1 Tablet by mouth every 6 hours as needed for Nausea. Active Triamcinolone Acetonide 0.5 % External Cream [...] dexcom failure 100 Strip 11 4 Active Gabapentin 300 MG Oral Capsule (Neurontin)Indicati ons:Fibromyalgia TAKE 2 CAPSULES BY MOUTH IN THE MORNING, NOON AND BEDTIME] 168 Capsule 4 Active Magnesium Oxide 400 MG Oral TabletIndications:B [...] AT BEDTIME 30 Tablet 5 4 Active Levothyroxine Sodium 200 MCG Oral Tablet (Levoxyl)Indication s:Postsurgical hypothyroidism Take 1 Tablet by mouth daily first thing in the morning. (at least 30 min prior to breakfast or other meds) 30 Tablet 4 Active Senna-Time S 8.6-50 MG Oral Tablet (senna-docusate) TAKE 1 TABLET BY MOUTH IN THE MORNING AND AT BEDTIME 60 Tablet 5 4 Active Doxycycline Hyclate 100 MG Oral Capsule Take 1 Capsule by mouth in the morning and 1 Capsule before bedtime. 4 Active Potassium Chloride Ayleen ER 20 [...] 2 times a day. 84 Tablet 5 4 Active DULoxetine HCl 30 MG Oral Capsule Delayed Release Particles (Cymbalta)Indicatio ns:Fibromyalgia,Pete or depressive disorder, recurrent, moderate (HCC) Take 1 Capsule by mouth in the morning. 28 Capsule 5 4 Active traZODone HCl 50 MG Oral Tablet (Desyrel) Take 1 Tablet by mouth at bedtime. 30 Tablet 5 4 Active clonazePAM 0.5 MG Oral Tablet (KlonoPIN)Indicatio ns:Restless legs syndrome,Anxiety state TAKE 1 TABLET BY MOUTH THREE TIMES A DAY 84 Tablet 4 Active Cholecalciferol 25 MCG (1000 UT) [...] a week. 2 mL 11 4 Active Mounjaro 5 MG/0.5ML Subcutaneous Solution Pen-injector (Tirzepatide) Inject 5 mg under the skin once a week. 2 mL 11 4 06/26/20 24 Discontinu ed(Medicat ion/Dose Changed) oxyCODONE HCl 5 MG Oral Tablet (Oxy IR)Indications:Lumb ar radiculopathy,Spina l stenosis of lumbar region without neurogenic claudication Take 1 Tablet by mouth every 6 hours as needed for Pain, Severe. 45 Tablet 4 06/26/20 24 Discontinu ed(Medicat ion/Dose Changed) documented as of this encounter (statuses as of 06/29/2024) Active Problems Problem Noted Date Diagnosed Date [...] 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 Atherosclerosis of [place] co ronary artery without angina pectoris 12/31/2021 [...] Assessment & Plan: Home PT to start [place] filter in place 08/19/2014 History of pulmonary [...] as of this encounter (statuses as of 06/29/2024) Resolved Problems Problem Noted Date Diagnosed Date [...] as of this encounter (statuses as of 06/29/2024) Immunizations Name Administration Dates Next Due COVID-19 mRNA, LNP-s, No Pre serve, 2-Dose Series ([employer]) 01/08/2021,12/18/2020 COVID-19, LNP-s, No Preserve , Navarro-sucrose, Ages 12+ (Pfizer) 2022,10/01/2021 COVID-19, MRNA-LNP, 23-24, P F, 30 MCG/0.3 mL, 12 YRS AND ABOVE, IM (Peach-Comirnat) 07/26/2023 Pneumococcal Conjugate Vacci ne, 20-valent ([id number]) 03/12/2022 Pneumococcal Polysaccharide PPV23 (Pneumovax) 08/22/2009,06/15/2006 RSV [...] this encounter Patient Instructions * Patient Instructions* Frances Ellis, [facility] - 06/26/2024 1:52 PM EDT ~~PATIENT INSTRUCTIONS FOR FLU SHOT~~ [...] documented in this encounter Progress Notes * Frances Ellis [facility] - 06/26/2024 1:13 PM EDT Images from the original note [...] SS 1:30 >150 before meals Increase Tresiba 39 units at bedtime Mounjaro 5mg weekly Medication Injection Site: Abdomen Lifestyle: Diet: [...] indicated BP Readings from Last 3 Encounters: 06/26/24 116/56 05/24/24 140/78 05/18/24 132/70 Blood pressure at goal: yes HYPERLIPIDEMIA: Recent Labs Units 11/07/23 1643 07/02/22 1511 LDL CHOLESTEROL (CALCULATED) - [facility] mg/dL 60 120 Does patient have clinical ASCVD? Yes, is patient LDL less than 55 mg/dL? No: await upcoming lipidspanel HEALTH MAINTENANCE REVIEW: Health Maintenance Due Topic Date Due Diabetic Eye Exam 05/09/2024 Influenza Vaccine (FLU shot) (1) 05/27/2024 Albumin/Creatinine Ratio 08/05/2024 ASSESSMENT & PLAN: ICD-10-CM 1. Type 2 diabetes mellitus with stage 3b chronic kidney disease, with long-term current use of insulin ([facility]) E11.22 N18.32 Z79.4 2. Need for prophylactic vaccination and inoculation against influenza Z23 BG Readings - Blood sugars uncontrolled. Blood sugars increasing with meals/snacks. Medications - Reviewed current regimen, patient is adherent to regimen. Will increase Mounjaro. Diet, Exercise, Lifestyle - No significant lifestyle changes since last visit. Discussed with patient trying to prioritize protein in diet. She reports not feeling like eating much lately and carbs often sound best. Patient is agreeable to SMBG with Dexcom G7 CGM. Patient aware to contact clinic if any hypoglycemia before next visit. MEDICATION CHANGES: yes, see below; preferred pharmacy: [facility] Diabetic Medications: Novolog - 8 units with breakfast, 8 units lunch and 10 units with supper + SS 1:30 >150 before meals Increase Tresiba 41 units at bedtime Increase Mounjaro 7.5mg weekly HEALTH MAINTENANCE INTERVENTIONS: Labs: Ordered & Scheduled: HgA1c and BMP/CMP Immunizations: Facilitated Administration Of: Influenza Foot Exam: Up to Date Eye Exam: Up to Date Annual Wellness Visit: Up to Date FOLLOW UP: Return to clinic in 4 weeks 07/31/2024 I spent a total of 30-39 minutes (exact time 32 mins) on the date of service in preparation, delivery, and documentation of the care provided to Stephanie Camp excluding any time spent in the performance of separately billed services. Frances Huerta [facility] Clinical Pharmacist - Statistical Geneticist Medication Therapy Management [facility] 06/26/2024, 1:13 PM documented in this encounter Plan of Treatment Upcoming Encounters Date Type Department Care Team (Late st Contact Info) Description 07/16/2024 12:30 PM EDT Telemedicine Psychology Kamari Oliveros [address] [place] [phone] Suzanne Robertson, DISCHARGE RN [address] [place] [phone] 07/17/2024 1:30 PM EDT Office Visit Cardiology, [facility] 132 [facility] [place] [address] Marjorie Powell PA-C 132 [facility] [place] [address] 07/31/2024 2:20 PM EST Office Visit Family Practice [address] [place] [address] 293 [place] [phone] Galdino Andujar DO 293 [place] [address] 09/12/2024 11:00 AM EST Office Visit Nephrology, [facility] 200 [facility] [place] [address] Erik Lenz MD 200 [place] [address] 02/19/2025 1:00 PM EDT Nurse Only Family Practice 65 [facility] 293 [place] [phone] Shira De La Rosa, LEXI 293 [place] [phone] 06/13/2025 1:30 PM EDT Imaging Radiology [facility] 1st [facility] 132 [facility] [place] [address] Scheduled Procedures Name Priority Associated Diagnoses Date/Ti [...] Additional history exists CKD PHOS USE SMARTSET 36794 12/26/2024 0410/2023, 02/11/2023, 01/07/2022, Additional history exists Adult Wellness Visit 02/13/2025 02/14/2024, 08/05/20 22 Depression Monitoring 02/13/2025 02/14/2024 Mammogram 06/12/2025 06/12/2024, 05/27, 04/21/2023, Additional history exists CKD HGB USE SMARTSET 25751 06/26/202506/26, 06/26/2024, 05/18/2024, Additional history exists Diabetic [...] long-term current use of insulin (HCC)- Primary Need for prophylactic vaccination and inoculation against influenza Screening mammogram for breast cancer documented in this encounter Advance Directives Documents on File Type Date Recorded Patient Nuclear Waste Process Operator Expl anation POLST 03/19/2020 4:25 PM [...] specific identity) Health Care Power of Freight Weigher Princess Allen Other - (no specific identity) Health Care Power of Freight Weigher Care Teams Transport Specialist Relationship Specialty Start Date End Date Galdino Andujar DO [address] [place] [address] PCP - General Internal Medicine 03/08/24 documented as of this encounter
--- OUTSIDE RECORDS SUMMARY | 2024-12-09 19:33 | External Medical Summary | Summary of Care ---
Author Name Unknown Organization [facility] Address [address] [place] [address] Phone [phone] Care Team Providers Care Timber Bucker Name Role Phone Galdino Andujar DO Primary Care Provider [phone] Reason for Visit * Reason Onset Date Comments Appointment 06/26/2024 ADULT/PEDS PSYCH IATRY REFERRAL OP Encounter Details Date Type Department Care Team (Late st Contact Info) Description 06/26/2024 Telephone Family Practice 65 [facility] [place] 293 [place] [phone] Galdino Andujar DO [address] [place] [address] Appointment (ADULT/PEDS PSYCHIATRY REFERRA... Allergies Active Allergy Reactions Criticality Noted Date [...] as of this encounter (statuses as of 06/28/2024) Medications Medication Sig Dispensed Refills Start Date [...] Dexcom G7 Sensor Use as directed. (From [facility]) 06/01/2023 Active BD Pen Needle Short [...] 08/04/2023 Active Additional Information Patient taking differently: 39 Units Subcutaneous DAILY(1900), Per [facility] pharmacist, Reported on 06/26/2024 Atorvastatin Calcium 20 [...] of dexcom failure 100 Strip 02/02/2024 Active Gabapentin 300 MG Oral Capsule (Neurontin)Indicatio ns:Fibromyalgia TAKE 2 CAPSULES BY MOUTH IN THE MORNING, NOON AND BEDTIME] 168 Capsule 02/22/2024 Active Magnesium Oxide 400 MG Oral TabletIndications:Be [...] THE MORNING 30 Capsule 5 04/18/2024 Active Omeprazole 20 MG Oral Capsule [...] a week. 2 mL 11 06/26/2024 Active documented as of this encounter (statuses as of 06/28/2024) Active Problems Problem Noted Date Diagnosed Date [...] has rx for atorvastatin and plavix to metal pickling equipment operator at pharmacy. 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 Atherosclerosis of [place] co ronary artery without angina pectoris 12/31/2021 [...] rx evidently given by vascular, has to metal pickling equipment operator rx documented as of this encounter (statuses as of 06/28/2024) Resolved Problems Problem Noted Date Diagnosed Date [...] as of this encounter (statuses as of 06/28/2024) Immunizations Name Administration Dates Next Due COVID-19 mRNA, LNP-s, No Pre serve, 2-Dose Series (TakWak) 01/08/2021,12/18/2020 COVID-19, LNP-s, No Preserve , Navarro-sucrose, Ages 12+ (Pfizer) 2022,10/01/2021 COVID-19, MRNA-LNP, 23-24, P F, 30 MCG/0.3 mL, 12 YRS AND ABOVE, IM (PFIZER-Comirnaty) 07/26/2023 Pneumococcal Conjugate Vacci ne, 20-valent ([id number]) 03/12/2022 Pneumococcal Polysaccharide PPV23 (Pneumovax) 08/22/2009,06/15/2006 RSV [...] Miscellaneous Notes * Telephone Encounter - Irina Vergara OSA - 06/26/2024 3:22 PM EDT Please reach out to pt to set up Psychiatry. First appt I could get was August. Pt can be reached at [phone] documented in this encounter Plan of Treatment Upcoming Encounters Date Type Department Care Team (Late st Contact Info) Description 07/16/2024 12:30 PM EDT Telemedicine Psychology Kamari Oliveros [address] [place] [phone] Suzanne Robertson LCSW [address] [place] [phone] 07/17/2024 1:30 PM EDT Office Visit Cardiology, [facility] [address] [place] [address] Marjorie Powell PA-C [address] [place] [address] 07/31/2024 2:20 PM EST Office Visit Family Practice [address] [place] [address] 293 [place] [phone] Galdino Andujar DO 293 [place] [address] 09/12/2024 11:00 AM EST Office Visit Nephrology, Gregorio Champion [address] [place] [address] Erik Lenz MD 200 [facility] [place] [address] 02/19/2025 1:00 PM EDT Nurse Only Family Practice 65 [facility] 293 [place] [phone] Shira De La Rosa, LEXI [address] [place] [phone] 06/13/2025 1:30 PM EDT Imaging Radiology [address] 132 [facility] [place] [address] Scheduled Procedures Name Priority Associated Diagnoses Date/Ti [...] Additional history exists CKD PHOS USE SMARTSET 47849 12/26/2024 04/0 10/2023, 02/11/2023, 01/07/2022, Additional history exists Adult Wellness Visit 02/13/2025 02/14/2024, 08/05/20 Depression Monitoring 02/13/2025 02/14/2024 Mammogram 06/12/2025 06/12/2024, 03/27, 02/11/2022, Additional history exists CKD HGB USE SMARTSET 40335 06/26/202506/26, 06/26/2024, 05/18/2024, Additional history exists Diabetic [...] on File Type Date Recorded Patient Editor City Expl anation POLST 03/19/2020 4:25 PM POLST [...] (no specific identity) Health Care Power of [place] Machine Operator Princess Other - (no specific identity) Health Care Power of [place] Machine Operator Care Teams Timber Bucker Relationship Specialty Start Date End Date Galdino Andujar DO [address] [place] [address] PCP - General Internal Medicine 03/08/24 documented as of this encounter
--- OUTSIDE RECORDS SUMMARY | 2024-12-09 19:33 | External Medical Summary | Summary of Care ---
Author Name Unknown Organization [facility] Address [address] [place] [address] Phone [phone] Care Team Providers Care Facility Assistant Name Role Phone Lexii Andujar DO Primary Care Provider [phone] Reason for Visit * Reason Comments eRx-Medication Refill Encounter Details Date Type Department Care Team (Late st Contact Info) Description 07/04/2024 Refill [facility], [facility] [address] [facility] [address] Lexii Andujar DO [address] [place] [address] Dizziness and giddiness Allergies Active Allergy Reactions Criticality Noted Date [...] as of this encounter (statuses as of 07/04/2024) Medications Medication Sig Dispensed Refills Start Date [...] Dexcom G7 Sensor Use as directed. (From [facility]) 3 Active BD Pen Needle Short U/F [...] taking differently: 41 Units Subcutaneous DAILY(1900), Per [facility] pharmacist, Reported on 06/29/2024 Atorvastatin Calcium [...] MORNING, NOON AND BEDTIME] 168 Capsule 5 4 Active Magnesium Oxide 400 MG Oral [...] or other meds) 30 Tablet 5 4 Active Senna-Time S [...] for Nausea. 90 Tablet 6 4 Active Ondansetron HCl 4 MG Oral Tablet (Zofran) Take 1 Tablet by mouth every 6 hours as needed for Nausea. 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) 2 Atherosclerosis of [place] ronary artery without angina pectoris 12/31/2021 [...] as of this encounter (statuses as of 07/04/2024) Resolved Problems Problem Noted Date Diagnosed Date [...] as of this encounter (statuses as of 07/04/2024) Immunizations Name Administration Dates Next Due COVID-19 mRNA, LNP-s, No Pre serve, 2-Dose Series (Pfizer) 01/08/2021,12/18/2020 COVID-19, LNP-s, No Preserve , Navarro-sucrose, Ages 12+ (Pfizer) 2022,10/01/2021 COVID-19, MRNA-LNP, 23-24, P F, 30 MCG/0.3 mL, 12 YRS AND ABOVE, IM (PFIZER-Comirnaty) 07/26/2023 Pneumococcal Conjugate Vacci ne, 20-valent ([id number]) 03/12/2022 Pneumococcal Polysaccharide PPV23 (Pneumovax) 08/22/2009,06/15/2006 RSV [...] Telephone Encounter - Lexii Andujar DO - 07/04/2024 3:17 PM EDTSigned Prescriptions: Disp Refills Ondansetron HCl 4 MG Oral Tablet (Zofran) 90 Tab*6 Sig: Take 1 Tablet (4 mg) by mouth every 6 hours as needed for Nausea.Authorizing Provider: LEXII ANDUJAR------- * Telephone Encounter - Mattie Mao LPN - 07/04/2024 3:03 PM EDT Did you pend patient's preferred pharmacy and medication before forwarding?yes Pharmacy: [facility] [address] Pending Prescriptions: Disp Refills Ondansetron HCl 4 MG Oral Tablet (Zofran)*90 Tab*6 Sig: Take 1 Tablet (4 mg) by mouth every 6 hours as needed for Nausea. Last Visit: Visit date not found (in [...] 01/23/2020 11:11 AM * Telephone Encounter - [facility] - 07/04/2024 2:17 PM EDT Pending Prescriptions: Disp Refills Ondansetron HCl 4 MG Oral Tablet [Pharmacy*90 Tab*6 Sig: Take 1Tablet (4 mg) by mouth every 6 hours as needed for Nausea. documented in this encounter Plan of Treatment Upcoming Encounters Date Type Department Care Team (Late st Contact Info) Description 07/16/2024 12:30 PM EDT Telemedicine Psychology Kamari Oliveros [address] [place] [phone] Suzanne Robertson LCSW [address] [place] [place] [address] 07/17/2024 1:30 PM EDT Office Visit Cardiology, [facility] 132 [place] [address] Marjorie Powell PA-C 132 [facility] [place] [address] 07/31/2024 2:20 PM EST Office Visit Family Practice [address] [place] [address] 293 [place] [phone] Lexii Andujar DO 293 [place] [address] 09/12/2024 11:00 AM EST Office Visit Nephrology, Gregorio Champion 200 [facility] [place] [address] Erik Lnez MD 200 [facility] [place] [address] 02/19/2025 1:00 PM EDT Nurse Only Family Practice [address] [place] [address] 293 [place] [phone] Shira De La Rosa, LEXI [address] [place] [phone] 06/13/2025 1:30 PM EDT Imaging Radiology [address] 132 [facility] [place] [address] Scheduled Procedures Name Priority Associated Diagnoses Date/Ti nj COLONOSCOPY FLEXIBLE PROXIMAL DIAGNOSTIC Recall Colon cancer [...] Additional history exists CKD PHOS USE SMARTSET 16795 12/26/2024 040 10/2023, 02/11/2023, 01/07/2022, Additional history exists Adult Wellness Visit 02/13/2025 02/14/2024, 08/05/20 22 Depression Monitoring 02/13/2025 02/14/2024 Mammogram 06/12/2025 06/12/2024, 05/27, 04/21/2023, Additional history exists CKD HGB USE SMARTSET 98198 06/26/202506/26, 06/26/2024, 05/18/2024, Additional history exists Diabetic [...] as of this encounter Visit Diagnoses Diagnosis Dizziness and giddiness Screening mammogram for breast cancer documented in this encounter Advance Directives Documents on File Type Date Recorded Patient Mechatronics Technician Expl anation POLST 03/19/2020 4:25 PM [...] specific identity) Health Care Power of Rn Community Princess Allen Other - (no specific identity) Health Care Power of Rn Community Care Teams Facility Assistant Relationship Specialty Start Date End Date Lexii Andujar DO [address] [place] [address] PCP - General Internal Medicine 03/08/24 documented as of this encounter
--- OUTSIDE RECORDS SUMMARY | 2024-12-09 19:33 | External Medical Summary | Summary of Care ---
Author Name Unknown Organization [facility] Address [address] [place] [address] Phone [phone] Care Team Providers Care Delivery 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 Name Role Phone Galdino Andujar DO Primary Care Provider [phone] Reason for Visit * Reason Onset Date Comments Scan To Read 06/26/2024 Encounter Details Date Type Department Care Team (Late st Contact Info) Description 06/26/2024 Telephone Family Practice 65 [facility] [place] [address] [place] [address] Galdino Andujar DO [address] [place] [address] Scan To Read Allergies Active [...] as of this encounter (statuses as of 06/27/2024) Medications Medication Sig Dispensed Refills Start Date [...] ([facility]) Inject 8 units with breakfast and 8units lunch and 10 units with dinner + sliding scale 1 units for every 25 units BG > 150. 150 mL 3 05/16/2023 Active Dexcom G7 Sensor Use as directed. (From [facility]) 06/01/2023 Active BD Pen Needle Short [...] ([facility]) INJECT 50 UNITS UNDER THE SKIN IN THE EVENING 60 mL 3 08/04/2023 Active Additional Information Patient taking differently: 39 Units Subcutaneous DAILY(1900), Per [facility] pharmacist, Reported on 06/26/2024 Atorvastatin Calcium 20 [...] ([facility]) Inject 7.5 mg under the skin once a week. 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) 2 Atherosclerosis of [place] co ronary artery without angina pectoris [...] as of this encounter (statuses as of 06/27/2024) Resolved Problems Problem Noted Date Diagnosed Date [...] as of this encounter (statuses as of 06/27/2024) Immunizations Name Administration Dates Next Due COVID-19 mRNA, LNP-s, No Pre serve, 2-Dose Series (Get Fractal) 01/08/2021,12/18/2020 COVID-19, LNP-s, No Preserve , Navarro-sucrose, Ages 12+ (Pfizer) 2022,10/01/2021 COVID-19, MRNA-LNP, 23-24, P F, 30 MCG/0.3 mL, 12 YRS AND ABOVE, IM (PFIZER-Comirnat) 07/26/2023 Pneumococcal Conjugate Vacci ne, 20-valent ([id number]) 03/12/2022 Pneumococcal Polysaccharide PPV23 (Pneumovax) 08/22/2009,06/15/2006 RSV [...] Telephone Encounter - Ricardo Mathis MD - 06/27/2024 8:29 AM EDT Retinal Scan Imaging Stephanie Camp [id number] Retinal Scan Interpretation: There is no retinopathy in both eyes Diabetes Retinal Imaging Care Plan: The retinal scan results are normal - I will forward this encounter to the Ophthalmology DM Letter Pool [[id number]], they will send a normal retinal scan letter to the patient, and the patient will be seen back for a yearly scan. Ricardo Mathis MD 06/27/2024 8:29 AM * Telephone Encounter - Rosario Saldana RT (R) - 06/26/2024 3:21 PM EDT A Diabetic Telemed Eye image was taken and requires your interpretation for Dr Andujar. [facility]. Patient prefers to be seen at [facility] if a follow-up appointment is needed. documented in this encounter Plan of Treatment Upcoming Encounters Date Type Department Care Team (Late st Contact Info) Description 07/17/2024 1:30 PM EDT Office Visit Cardiology, [facility] 132 [facility] [place] [address] Marjorie Powell, JUAN ANTONIOC 132 [facility] [place] [address] 07/31/2024 2:20 PM EST Office Visit Family Practice [address] [place] [address] [address] [place] [phone] Galdino Andujar DO [address] [place] [address] 09/12/2024 11:00 AM EST Office Visit Nephrology, [facility] 200 [place] [address] Erik Lenz MD 200 [place] [address] 02/19/2025 1:00 PM EDT Nurse Only Family Practice [address] [place] [address] 293 [place] [phone] Shira De La Rosa, LEXI [address] [place] [phone] 06/13/2025 1:30 PM EDT Imaging Radiology [facility] 1st [facility] 132 [facility] [place] [address] Scheduled Procedures Name Priority Associated Diagnoses Date/Ti [...] Additional history exists CKD PHOS USE SMARTSET 31718 12/26/2024 04/0 10/2023, 02/11/2023, 01/07/2022, Additional history exists Adult Wellness Visit 02/13/2025 02/14/2024, 08/05/20 22 Depression Monitoring 02/13/2025 02/14/2024 Mammogram 06/12/2025 06/12/2024, 03/27, 02/11/2022, Additional history exists CKD HGB USE SMARTSET 10902 06/26/202506/26, 06/26/2024, 05/18/2024, Additional history exists Diabetic [...] on File Type Date Recorded Patient Head Correction Officer Expl anation POLST 03/19/2020 4:25 PM [...] (no specific identity) Health Care Power of Transport Truck Driver Princess Allen Other - (no specific identity) Health Care Power of Transport Truck Driver Care Teams Delivery 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 Relationship Specialty Start Date End Date Galdino Andujar DO [address] [place] [address] PCP - General Internal Medicine 03/08/24 documented as of this encounter
--- OUTSIDE RECORDS SUMMARY | 2024-12-09 19:33 | External Medical Summary | Summary of Care ---
Author Name Unknown Organization [facility] Address [address] [place] [address] Phone [phone] Care Team Providers Care Ground Services Instructor Name Role Phone Galdino Andujar DO Primary Care Provider [phone] Reason for Visit * Reason Onset Date Comments Information 07/05/2024 Encounter Details Date Type Department Care Team (Late st Contact Info) Description 07/05/2024 Telephone Family Practice 65 [facility] [place] [address] [place] [address] Galdino Andujar DO [address] [place] [address] Information Allergies Active Allergy Reactions Criticality Noted Date [...] as of this encounter (statuses as of 07/05/2024) Medications Medication Sig Dispensed Refills Start Date [...] of 7.0%-8.0% ([facility]) Inject 8 units with breakfast and 8units lunch and 10 units with dinner + sliding scale 1 units for every 25 units BG > 150. 150 mL 3 3 Active Dexcom G7 Sensor Use as directed. (From [facility]) 3 Active BD Pen Needle Short [...] of 7.0%-8.0% ([facility]) INJECT 50 UNITS UNDER THE SKIN IN THE EVENING 60 mL 3 3 Active Additional Information Patient taking differently: 41 Units Subcutaneous DAILY(1900), Per [facility] pharmacist, Reported on 06/29/2024 Atorvastatin Calcium [...] of insulin ([facility]) Inject 7.5 mg under the skin once [...] and 1 Capsule before bedtime. 4 Active Gabapentin 300 MG Oral Capsule (Neurontin)Indicat ions:Fibromyalgia TAKE 2 CAPSULES BY MOUTH IN THE MORNING, NOON AND BEDTIME] 168 Capsule 5 4 07/05/20 24 Discontinued documented as of this encounter (statuses as of 07/05/2024) Active Problems Problem Noted Date Diagnosed Date [...] by vascular, reports upcoming carotid surgery at [facility]. She states she has rx for atorvastatin and plavix to slate picker at pharmacy. 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 Atherosclerosis of [place] co ronary artery without angina pectoris 12/31/2021 [...] rx evidently given by vascular, has to slate picker rx documented as of this encounter (statuses as of 07/05/2024) Resolved Problems Problem Noted Date Diagnosed Date [...] as of this encounter (statuses as of 07/05/2024) Immunizations Name Administration Dates Next Due COVID-19 mRNA, LNP-s, No Pre serve, 2-Dose Series (Hand Talk) 01/08/2021,12/18/2020 COVID-19, LNP-s, No Preserve , Navarro-sucrose, Ages 12+ (Pfizer) 2022,10/01/2021 COVID-19, MRNA-LNP, 23-24, P F, 30 MCG/0.3 mL, 12 YRS AND ABOVE, IM (PFIZER-Comirnaty) 07/26/2023 Pneumococcal Conjugate Vacci ne, 20-valent ([id number]) 03/12/2022 Pneumococcal Polysaccharide PPV23 (Pneumovax) 08/22/2009,06/15/2006 RSV [...] Telephone Encounter - Shira Gross LPN - 07/05/2024 2:57 PM EDT Patient is aware and will comply. Thank you * Telephone Encounter - Galdino Andujar DO - 07/05/2024 2:40 PM EDT Serum creatinine: 1.8 mg/dL (H) 06/26/24 1430 Estimated creatinine clearance: 38.4 mL/min (A) Component Latest Ref Rng 06/26/2024 BUN 6 - 20 mg/dL 32 (H) CREATININE 0.5 - 1.0 mg/dL 1.8 (H) EGFR >=60 mL/min 29 (L) Due to decreased renal function Gabapentin will need to be reduced to 300 mg three times a day. Notify the patient. documented in this encounter Plan of Treatment Upcoming Encounters Date Type Department Care Team (Late st Contact Info) Description 07/16/2024 12:30 PM EDT Telemedicine Psychology Kamari Oliveros [address] [place] [phone] Suzanne Robertson, EXTRUSION DIE TEMPLATE MAKER [address] [place] [address] 07/17/2024 1:30 PM EDT Office Visit Cardiology, [facility] 132 [facility] [place] [address] Marjorie Powell PA-C 132 [facility] [address] 07/31/2024 2:20 PM EST Office Visit Family Practice [address] [place] [address] 293 [place] [phone] Galdino Andujar DO 293 [place] [address] 09/12/2024 11:00 AM EST Office Visit Nephrology, Gregorio Champion 200 [facility] [place] [address] Erik Lenz MD 200 [facility] [place] [place] [address] 02/19/2025 1:00 PM EDT Nurse Only Family Practice [address] [place] [address] 293 [place] [phone] Shira De La Rosa, LEXI [address] [place] [phone] 06/13/2025 1:30 PM EDT Imaging Radiology [facility] 1st [facility] 132 [facility] [place] [address] Scheduled Procedures Name Priority Associated Diagnoses Date/Ti me COLONOSCOPY FLEXIBLE PROXIMAL DIAGNOSTIC Recall Colon cancer screening Health Maintenance Due Date Last Done Comments Cologuard 2000 Fecal Occult Blood Test 2000 Sigmoidoscopy 2000 Albumin/Creatinine Ratio 08/05/2024 023, 11/01/2022, 01/07/2022, Additional history exists Diabetic Foot Exam 10/04/2024 10/04/2023, 0 11/01/2022, 01/07/2022, Additional history exists TSH 12/21/2024 12/22/2023, 09/26, 11/01/2022, Additional history exists GFR 12/25/2024 06/26/2024, 2 11/2023, 02/02/2024, Additional history exists HbA1c 12/25/2024 06/26/2024, 07/0 09/2023, 12/22/2023, Additional history exists CKD PHOS USE SMARTSET 68260 12/26/2024 04/0 10/2023, 02/11/2023, 01/07/2022, Additional history exists Adult Wellness Visit 02/13/2025 02/14/2024, 08/05/20 22 Depression Monitoring 02/13/2025 02/14/2024 Mammogram 06/12/2025 06/12/2024, 05/27, 04/21/2023, Additional history exists CKD HGB USE SMARTSET 26576 06/26/202506/26, 06/26/2024, 05/18/2024, Additional history exists Diabetic [...] Diagnoses Diagnosis Fibromyalgia Mylagia and myositis, unspecified Screening mammogram for breast cancer documented in this encounter Advance Directives Documents on File Type Date Recorded Patient Women'S Soccer Coach Expl anation POLST 03/19/2020 4:25 PM POLST [...] (no specific identity) Health Care Power of Soap Maker Princess Other - (no specific identity) Health Care Power of Soap Maker Care Teams Ground Services Instructor Relationship Specialty Start Date End Date Galdino Andujar DO [address] [place] [address] PCP - General Internal Medicine 03/08/24 documented as of this encounter
--- OUTSIDE RECORDS SUMMARY | 2024-12-09 19:33 | External Medical Summary | Summary of Care ---
Author Name Unknown Organization [facility] Address [address] [place] [address] Phone [phone] Care Team Providers Care Marsh Buggy Operator Name Role Phone Galdino Andujar DO Primary Care Provider [phone] Reason for Visit * Reason Onset Date Comments Scan To Read 06/26/2024 Encounter Details Date Type Department Care Team (Late st Contact Info) Description 06/26/2024 Telephone Family Practice 65 [facility] [place] [address] [place] [address] Galdino Andujar DO [address] [place] [address] Scan To Read Allergies Active [...] as of this encounter (statuses as of 06/26/2024) Medications Medication Sig Dispensed Refills Start Date [...] G7 Sensor Use as directed. (From [facility]) 06/01/2023 Active BD Pen Needle Short [...] taking differently: 39 Units Subcutaneous DAILY(1900), Per [facility] pharmacist, Reported on 06/26/2024 Atorvastatin Calcium 20 [...] 4 mgIndications:Nausea 4 mg OR ONCE 06/26/2024 06/27/2024 Acti ve documented as of this encounter (statuses as of 06/26/2024) Active Problems Problem Noted Date Diagnosed Date [...] 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 Atherosclerosis of [place] co ronary artery without angina pectoris 12/31/2021 Last Assessment & Plan: No chest pain. Stable. -continue Eliquis -likely no Wili or beta-faviola due to hypotension. Statin intolerance Carotid artery stenosis, asymptomatic, right 03/2022 Last Assessment & Plan: MRI neck this coming week F/u scheduled with Dr. Tnag Spinal stenosis of lumbar re gion without [...] as of this encounter (statuses as of 06/26/2024) Resolved Problems Problem Noted Date Diagnosed Date [...] as of this encounter (statuses as of 06/26/2024) Immunizations Name Administration Dates Next Due COVID-19 mRNA, LNP-s, No Pre serve, 2-Dose Series (Whistle) 01/08/2021,12/18/2020 COVID-19, LNP-s, No Preserve , Navarro-sucrose, Ages 12+ (Pfizer) 2022,10/01/2021 COVID-19, MRNA-LNP, 23-24, P F, 30 MCG/0.3 mL, 12 YRS AND ABOVE, IM (PFIZER-Comirnat) 07/26/2023 Pneumococcal Conjugate Vacci ne, 20-valent ([id number]) 03/12/2022 Pneumococcal Polysaccharide PPV23 (Pneumovax) 08/22/2009,06/15/2006 RSV [...] No 02/14/2024 Does the household have a [facility] source of income? (Household - for ages [...] encounter Miscellaneous Notes * Telephone Encounter - Rosario Saldana RT (R) - 06/26/2024 3:21 PM EDT A Diabetic Telemed Eye image was taken and requires your interpretation for Dr Andujar. Please [facility]. [facility]. documented in this encounter Plan of Treatment Upcoming Encounters Date Type Department Care Team (Late st Contact Info) Description 07/17/2024 1:30 PM EDT Office Visit Cardiology, [facility] [address] [place] [address] Marjorie Powell PA-C [address] [place] [address] 07/31/2024 2:20 PM EST Office Visit Family Practice [address] [place] [address] [address] [place] [phone] Galdino Andujar DO 293 [facility] [address] 09/12/2024 11:00 AM EST Office Visit Nephrology, [facility] 200 [facility] [place], [place] [address] Erik Lenz MD 200 [facility] [place] [address] 02/19/2025 1:00 PM EDT Nurse Only Family Practice [address], [place] 293 [place] [address] Shira De La Rosa, LEXI 293 [facility] [place] [address] 06/13/2025 1:30 PM EDT Imaging Radiology [facility] 1st [facility] [place] 132 [facility] [place] [address] Scheduled Procedures Name Priority Associated Diagnoses Date/Ti me COLONOSCOPY FLEXIBLE PROXIMAL DIAGNOSTIC Recall Colon cancer screening Health Maintenance Due Date Last Done Comments Cologuard 2000 Fecal Occult Blood Test 2000 Sigmoidoscopy 2000 Albumin/Creatinine Ratio 08/05/2024 023, 11/01/2022, 01/07/2022, Additional history exists HbA1c 09/26/2024 03/26/2024, 11/25, 09/20/2023, Additional history exists Diabetic Foot Exam 10/04/2024 10/04/2023, 0 11/01/2022, 01/07/2022, Additional history exists GFR 11/18/2024 05/18/2024, 0505/2024, 12/27/2023, Additional history exists TSH 12/21/2024 12/22/2023, 09/26, 11/01/2022, Additional history exists CKD PHOS USE SMARTSET 51219 12/26/2024 04/0 10/2023, 02/11/2023, 01/07/2022, Additional history exists Adult Wellness Visit 02/13/2025 02/14/2024, 08/05/20 22 Depression Monitoring 02/13/2025 02/14/2024 CKD HGB USE SMARTSET 24238 05/18/202505/18, 05/18/2024, 12/22/2023, Additional history exists Mammogram 06/12/2025 06/12/2024, 03/27, 02/11/2022, Additional history exists Diabetic Eye Exam 06/26/2025 06/26/2024, , 05/24/2022, Additional history exists Colonoscopy 02/17/2026 02/18/2016, 01/25, 01/28/2006, Additional history exists Colorectal Cancer Screening 02/17/2026 Zoster Vaccines Completed 05/08/2020, 10/27, 12/11/2015 Pneumococcal Vaccine: 65+ Years Completed 03/12/2022, 08/22/2009, 06/15/2006 COVID-19 Vaccine Discontinued 07/26/2023, , 10/01/2021, Additional history exists Influenza Vaccine (FLU shot) [...] on File Type Date Recorded Patient Surgical Services Tech Expl anation POLST 03/19/2020 4:25 PM [...] (no specific identity) Health Care Power of Vessel Scrapper Helper Princess Allen Other - (no specific identity) Health Care Power of Vessel Scrapper Helper Care Teams Marsh Buggy Operator Relationship Specialty Start Date End Date Galdino Andujar DO [address] [place] [address] PCP - General Internal Medicine 03/08/24 documented as of this encounter
--- OUTSIDE RECORDS SUMMARY | 2024-12-09 19:33 | External Medical Summary | Summary of Care ---
Author Name Unknown Organization [facility] Address [address] [place] [address] Phone [phone] Care Team Providers Care Consulting Application Engineer Name Role Phone Galdino Andujar DO Primary Care Provider Reason for Referral * Evaluate & Treat - Unlimited Visits (Within 10 days (routine)) - Authorized Specialty Diagnoses / Procedures Referred By Contac t Referred To Contact Physical Therapy / Physical Medicine And Rehab Diagnoses Abnormality of gait Spinal stenosis of lumbar region without neurogenic claudication Galdino Andujar DO [address] [place] [address] Referral ID Status Reason Start Date Expiration Date Visits Requested Visits Authorized [id number] Authorized Specialty Services Required 06/26/[phone] Question Answer Referral Priority Within 10 days (routine) Where should this appointment be scheduled? [facility] * Evaluate & Treat - Unlimited Visits (Within 10 days (routine)) - Authorized Specialty Diagnoses / Procedures Referred By Contac t Referred To Contact Psychiatry Diagnoses Moderate episode of recurrent major depressive disorder (HCC) Galdino Andujar DO [address] [place] [address] Referral ID Status Reason Start Date Expiration Date Visits Requested Visits Authorized [id number] Authorized Specialty Services Required 06/26/2024 999 999 [...] peripheral angiopathy (HCC) Galdino Andujar DO [address] [place] [address] Referral ID Status Reason Start Date Expiration Date Visits Requested Visits Authorized [id number] Authorized Specialty Services Required 06/26/2024 1 1 Question Answer Referring for: Optometry Conditions Optometry Conditions Diabetic Eye Exam without Retinopathy Referral Priority Within 30 days (routine) Where should this appointment be scheduled? External Reason for Visit * Reason Comments Follow Up Encounter Details Date Type Department Care Team (Latest Contact Info) Description 06/26/2024 1:40 PM EDT Office Visit Family Practice [address] [place] [address], [address] [phone] Galdino Andujar DO [address] [place] [address] 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 3b chronic kidney disease (HCC)*; Type 2 diabetes mellitus with stage 3b chronic kidney disease, with long-term current use of insulin (HCC); Chronic hypoxemic respiratory failure ([facility]); ILD (interstitial lung disease) ([facility]); DM peripheral angiopathy (HCC); Moderate episode of recurrent major depressive disorder (HCC); Dyslipidemia; Postsurgical hypothyroidism; Nausea; Fibromyalgia; Abnormality of gait; Restless legs syndrome; Gastroesophageal reflux disease with esophagitis without hemorrhage; Spinal stenosis of lumbar region without neurogenic claudication; Atherosclerosis of klamath coronary artery of klamath heart without angina pectoris; Other abnormalities of gait and mobility; Anxiety state; Iron deficiency; Hydronephrosis of right kidney; Slater filter in place; Recurrent deep vein thrombosis [...] G7 Sensor Use as directed. (From [facility]) 3 Active BD Pen Needle Short U/F [...] 3 Active Additional Information Patient taking differently: 39 Units Subcutaneous DAILY(1900), Per [facility] pharmacist, Reported on 06/26/2024 Atorvastatin [...] THE MORNING AND AT BEDTIME 60 Tablet 4 Active rOPINIRole HCl 2 MG Oral Tablet (Requip)Indications :Restless legs syndrome TAKE 1 TABLET BY MOUTH AT BEDTIME 30 Tablet 4 Active Levothyroxine Sodium 200 MCG [...] Pain, Severe. 90 Tablet 4 Active Mounjaro 5 MG/0.5ML Subcutaneous Solution Pen-injector (Tirzepatide) Inject 5 mg under the skin once a week. 2 mL 11 4 06/26/20 Discontinu ed(Medicat ion/Dose Changed) oxyCODONE HCl 5 MG Oral Tablet (Oxy IR)Indications:Lumb ar radiculopathy,Spina l stenosis of lumbar region without neurogenic claudication Take 1 Tablet by mouth every 6 hours as needed for Pain, Severe. 45 Tablet 4 06/26/20 24 Discontinu ed(Medicat ion/Dose Changed) Hospital, Clinic, or [...] for atorvastatin and plavix to cotton picker operator at pharmacy. Type 2 diabetes [...] given by vascular, has to cotton picker operator rx documented as of this [...] mRNA, LNP-s, No Pre serve, 2-Dose Series (Enjoi) 01/08/2021,12/18/2020 COVID-19, LNP-s, No Preserve , Navarro-sucrose, Ages 12+ (Pfizer) 2022,10/01/2021 COVID-19, MRNA-LNP, 23-24, P F, 30 MCG/0.3 mL, 12 YRS AND ABOVE, IM (PFIZER-Comirnaty) 07/26/2023 Pneumococcal Conjugate Vacci ne, 20-valent ([id number]) 03/12/2022 Pneumococcal Polysaccharide PPV23 (Pneumovax) 08/22/2009,06/15/2006 RSV [...] DO - 06/26/2024 2:20 PM EDT SUBJECTIVE: tSephanie Camp is a 69 year old female. 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) Atherosclerosis of klamath coronary artery without angina pectoris Carotid artery stenosis, asymptomatic, right Encounter for long-term current use of medication Type 2 diabetes mellitus with hemoglobin A1c goal of less than 8.0% ([facility]) Recurrent deep vein thrombosis (DVT) of both lower extremities ([facility]) Chronic hypoxemic respiratory failure (HCC) Chronic kidney disease, stage 3b (HCC) ILD (interstitial lung disease) ([facility]) Moderate episode of recurrent major depressive disorder ([facility]) Primary osteoarthritis of both knees Type 2 diabetes mellitus with stage 3b chronic kidney disease, with long-term current use of insulin ([facility]) Anxiety state Sacroiliitis, not elsewhere classified ([facility]) DM peripheral angiopathy ([facility]) Morbid (severe) obesity due to excess calories ([facility]) Iron deficiency Hydronephrosis of right kidney VRE (vancomycin-resistant Enterococci) infection Body mass index (BMI) of 45.0 to 49.9 in adult ([facility]) Current Outpatient Medications Medication Sig [...] Dexcom G7 Sensor Use as directed. (From [facility]) BD Pen Needle Short U/F 31G X [...] Units under the skin every evening. Per [facility] pharmacist) 60 mL 3 Atorvastatin Calcium 20 [...] bedtime. (Patient not taking: Reported on 06/26/2024) DossierView In Vitro Strip (Glucose Blood) Use up [...] to other allergen Chronic hypoxemic respiratory failure ([facility]) 01/07/2022 Diverticulosis of colon 01/28/2006 Essential hypertension with goal blood pressure less than 140/90 02/22/2014 ELLIE (generalized anxiety disorder) 09/13/2009 Goiter [address] filter in place 08/19/2014 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[facility]) 08/22/2009 History of pulmonary embolus (PE) 07/16/2014 HTN, goal below 140/90 Hydronephrosis Impetigo 09/27/2018 Obesity, BMI not known Perforation of intestine ([facility]) 1996 COLON -- 1996 Pneumonia in aspergillosis(484.6) 09/14/2009 Recurrent deep vein thrombosis (DVT) of both lower extremities ([facility]) 01/07/2022 Sleep apnea, obstructive Spinal stenosis of lumbar region without neurogenic claudication 07/15/2020 Spontaneous pneumothorax 09/14/2009 Statin intolerance 07/16/2014 Type 2 diabetes mellitus with hemoglobin A1c goal of less than 8.0% ([facility]) 01/07/2022 Past Surgical History: Procedure Laterality Date ARTHROPLASTY KNEE TOTAL Right 07/24/2014 R COLONOSCOPY, DIAGNOSTIC (RECTUM) 02/18/2016 normal, repeat 10 yrs/[facility] COLONOSCOPY, GI REFERRAL OP 01/28/2006 diverticulosis--repeat 10 years INCISION OF [place], PLANNED 06/03/2011 TRACHEOSTOMY PLANNED performed by DANNY HOLDER at OR [facility] INJECT DX/THER SUBSTANCE INTERLAMINAR LUMBAR/SACRAL W IMAGE GUIDE 05/26/2020 INJECTION SPINE LUMBAR OR SACRAL performed by Raj Ahn DO at OR [facility] INJECT DX/THER SUBSTANCE INTERLAMINAR LUMBAR/SACRAL W IMAGE GUIDE 05/14/2021 INJECTION SPINE LUMBAR OR SACRAL performed by Raj Ahn DO at OR [facility] INJECT DX/THER SUBSTANCE INTERLAMINAR LUMBAR/SACRAL W IMAGE GUIDE 08/13/2021 INJECTION SPINE LUMBAR OR SACRAL performed by Raj Ahn DO at OR [facility] KNEE ARTHROSCOPY/DEBRIDEMENT 07/27/[address] PERMANENT GASTROSTOMY TUBE 09/06/2009 GASTROSTOMY WITH CONSTUCTION GASTRIC TUBE performed by AMADOU NUNEZ at [facility] REMOVAL OF THYROID GLAND 06/15/2011 THYROIDECTOMY INCLUDING SUBSTERNAL THYROID CERVICAL APPROACH performed by DANNY HOLDER at OR [facility] REMOVE GALLBLADDER 09/06/2009 CHOLECYSTECTOMY performed by AMADOU NUNEZ at [facility] REPAIR RECURRENT INCISIONAL HERNIA 09/26/1998 REVISION OF COLOSTOMY, SIMPLE 09/26/1997 SACROILIAC JOINT INJECT W/GUIDANCE 07/28/2020 INJECTION SACROILIAC JOINT performed by Raj Ahn DO at OR [facility] SACROILIAC JOINT INJECT W/GUIDANCE 03/03/2022 INJECTION SACROILIAC JOINT performed by Raj Ahn DO at OR [facility] SACROILIAC JOINT INJECT W/GUIDANCE 05/04/2023 INJECTION SACROILIAC JOINT performed by Gibbon Callum Ahn DO at OR [facility] SUTURE, LARGE INTESTINE W/COLOSTOMY 09/26/1996 perforation R colon with colostomy TRANSCATH STENT-CAROTID ARTERY, W/EMBOL PROTECTION Right 09/06/2023 Dr. Tang VENA CAVA FILTER/LIGATION/CLIP 08/19/2009 Slater filter placement through the right femoral 08/19/[address] Lerma at [facility] Review of patient's allergies indicates: Allergen [...] (HCC) Continue Oxygen ILD (interstitial lung disease) ([facility]) DM peripheral angiopathy ([facility]) - TELEMEDICINE DIABETIC EYE - [...] - PHYSICAL THERAPY REFERRAL OP Atherosclerosis of klam[place] coronary artery of klam[place] heart without angina pectoris Continue ASA Other abnormalities of gait and mobility Anxiety state Continue Clonazepam Iron deficiency Hydronephrosis of right kidney Right Ureter Stent change per Urology at [facility] Frank filter in place Recurrent deep vein [...] information about this test. Date Last Reviewed: 02/25/201619994465-3171 [employer]. [address] [place] [address], [place] [address]. All rights reserved. This information is not intended as a substitute for professional medical care. Always follow your healthcare professional's instructions. documented in this encounter Plan of Treatment Upcoming Encounters Date Type Department Care Team (Late st Contact Info) Description 07/17/2024 1:30 PM EDT Office Visit Cardiology, [facility] [address] [facility] [place] [address] Marjorie Powell PA-C [address] [facility] [place] [address] 07/31/2024 2:20 PM EST Office Visit Family Practice [address] [place] [address] [address] [place] [phone] Galdino Andujar DO [address] [place] [place] [address] 09/12/2024 11:00 AM EST Office Visit Nephrology, [facility] [address] [place] [address] Erik Lenz MD [address] [facility] [place], [place] [address] 02/19/2025 1:00 PM EDT Nurse Only Family Practice [address] [place] [address] [address] [place] [phone] Shira De La Rosa, LEXI [address] [facility] [place] [phone] 06/13/2025 1:30 PM EDT Imaging Radiology [facility] [address] [facility] [address] [facility] [place] [address] Pending Results Name Type Priority Associated Diagnoses Date /Time HEMOGLOBIN A1C Lab Routine Type 2 diabetes mellitus with stage 3b chronic kidney disease, with long-term current use of insulin ([facility]) 06/26/2024 2:30 PM EDT CBC WITH WBC DIFFERENTIAL Lab Routine Type 2 diabetes mellitus with stage 3b chronic kidney disease, with long-term current use of insulin ([facility]) 06/26/2024 2:30 PM EDT COMPREHENSIVE METABOLIC PANEL Lab Routine Type 2 diabetes mellitus with stage 3b chronic kidney disease, with long-term current use of insulin (HCC) 06/26/2024 2:30 PM EDT CBC Lab Routine Type 2 diabetes mellitus with stage 3b chronic kidney disease, with long-term current use of insulin (HCC) 06/26/2024 2:30 PM EDT DIFFERENTIAL, AUTOMATED Lab Routine Type 2 diabetes mellitus with stage 3b chronic kidney disease, with long-term current use of insulin (HCC) 06/26/2024 2:30 PM EDT Scheduled Orders Name Type Priority Associated Diagnoses Orde r Schedule HEMOGLOBIN A1C Lab Routine Type 2 diabetes mellitus with stage 3b chronic kidney disease, with long-term current use of insulin (HCC) Expected: 06/26/2024 (Approximate), Expires: 06/26/2025 CBC WITH WBC DIFFERENTIAL Lab Routine Type 2 diabetes mellitus with stage 3b chronic kidney disease, with long-term current use of insulin (HCC) Expected: 06/26/2024 (Approximate), Expires: 06/26/2025 COMPREHENSIVE METABOLIC PANEL Lab Routine Type 2 diabetes mellitus with stage 3b chronic kidney disease, with long-term current use of insulin (HCC) Expected: 06/26/2024 (Approximate), Expires: 06/26/2025 Scheduled Procedures Name Priority Associated Diagnoses Date/Ti [...] 01/07/2022, Additional history exists HbA1c 09/26/2024 03/26/2024, 03/2 04/2024, 09/20/2023, Additional history exists Diabetic Foot Exam 10/04/2024 10/04/2023, 0 11/01/2022, 01/07/2022, Additional history exists GFR 11/18/2024 05/18/2024, 05/0 05/2024, 12/27/2023, Additional history exists TSH 12/21/2024 12/22/2023, 09/26, 11/01/2022, Additional history exists CKD PHOS USE SMARTSET 12280 12/26/2024 04/0 10/2023, 02/11/2023, 01/07/2022, Additional history exists Adult Wellness Visit 02/13/2025 02/14/2024, 08/05/20 22 Depression Monitoring 02/13/2025 02/14/2024 CKD HGB USE SMARTSET 49151 05/18/202505/18, 05/18/2024, 12/22/2023, Additional history exists Mammogram [...] Associated Diagnosis Comments TELEMEDICINE DIABETIC EYE Routine 06/26/2024 DM peripheral angiopathy (HCC) documented in this encounter Results * TELEMEDICINE DIABETIC EYE (06/26/2024) 06/26/2024 Galdino [...] lumbar region, without neurogenic claudication Atherosclerosis of [place]lam[place] coronary artery of [place]lam[place] heart without angina pectoris Other abnormalities of [...] on File Type Date Recorded Patient Fine Artist Expl anation POLST 03/19/2020 4:25 PM [...] (no specific identity) Health Care Power of Route Driver Princess Thrashery Other - (no specific identity) Health Care Power of Route Driver Care Teams Consulting Application Engineer Relationship Specialty Start Date End Date Galdino Andujar DO [address] [place] [address] PCP - General Internal Medicine 03/08/24 documented as of this encounter
--- OUTSIDE RECORDS SUMMARY | 2024-12-09 19:34 | External Medical Summary | Summary of Care ---
Author Name Unknown Organization [facility] Address [address] [place] [address] Phone [phone] Care Team Providers Care Loan Operations Specialist Name Role Phone Galdino Andujar DO Primary Care Provider [phone] Reason for Referral * Evaluate & Treat - Unlimited Visits (Within 10 days (routine)) - Authorized Specialty Diagnoses / Procedures Referred By Contac t Referred To Contact Physical Therapy / Physical Medicine And Rehab Diagnoses Abnormality of gait Spinal stenosis of lumbar region without neurogenic claudication Galdino Andujar DO [address] [place] [address] Referral ID Status Reason Start Date Expiration Date Visits Requested Visits Authorized [id number] Authorized Specialty Services Required 06/26/[phone] Question Answer Referral Priority Within 10 days (routine) Where should this appointment be scheduled? [facility] * Evaluate & Treat - Unlimited Visits (Within 10 days (routine)) - Authorized Specialty Diagnoses / Procedures Referred By Contac t Referred To Contact Psychiatry Diagnoses Moderate episode of recurrent major depressive disorder (HCC) Galdino Andujar DO [address] [place] [address] Referral ID Status Reason Start Date Expiration Date Visits Requested Visits Authorized [id number] Authorized Specialty Services Required 06/26/2024 999 999 [...] peripheral angiopathy (HCC) Galdino Andujar DO [address] [place] [address] Referral ID Status Reason Start Date Expiration Date Visits Requested Visits Authorized [id number] Authorized Specialty Services Required 06/26/2024 1 1 Question Answer Referring for: Optometry Conditions Optometry Conditions Diabetic Eye Exam without Retinopathy Referral Priority Within 30 days (routine) Where should this appointment be scheduled? External Reason for Visit * Reason Comments Follow Up Encounter Details Date Type Department Care Team (Latest Contact Info) Description 06/26/2024 1:40 PM EDT Office Visit Family Practice [address] [place] [address], [address] [address] Galdino Andujar DO [address] [place] [address] 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 3b chronic kidney disease (HCC)*; Type 2 diabetes mellitus with stage 3b chronic kidney disease, with long-term current use of insulin (HCC); Chronic hypoxemic respiratory failure ([facility]); ILD (interstitial lung disease) ([facility]); DM peripheral angiopathy (HCC); Moderate episode of recurrent major depressive disorder (HCC); Dyslipidemia; Postsurgical hypothyroidism; Nausea; Fibromyalgia; Abnormality of gait; Restless legs syndrome; Gastroesophageal reflux disease with esophagitis without hemorrhage; Spinal stenosis of lumbar region without neurogenic claudication; Atherosclerosis of crow coronary artery of crow heart without angina pectoris; Other abnormalities of gait and mobility; Anxiety state; Iron deficiency; Hydronephrosis of right kidney; Brooklyn filter in place; Recurrent deep vein thrombosis [...] taking differently: 39 Units Subcutaneous DAILY(1900), Per [facility] pharmacist, Reported on 06/26/2024 Atorvastatin Calcium 20 [...] induced thrombocytopenia (HIT) 2 Atherosclerosis of crow co ronary artery without angina pectoris 12/31/2021 [...] Assessment & Plan: Home PT to start Brooklyn filter in place 08/19/2014 History of pulmonary [...] mRNA, LNP-s, No Pre serve, 2-Dose Series ([employer]) 01/08/2021,12/18/2020 COVID-19, LNP-s, No Preserve , Navarro-sucrose, Ages 12+ (Pfizer) 2022,10/01/2021 COVID-19, MRNA-LNP, 23-24, P F, 30 MCG/0.3 mL, 12 YRS AND ABOVE, IM (PFIZER-Comirnat) 07/26/2023 Pneumococcal Conjugate Vacci ne, 20-valent ([id number]) 03/12/2022 Pneumococcal Polysaccharide PPV23 (Pneumovax) 08/22/2009,06/15/2006 RSV [...] No 02/14/2024 Does the household have a [facility] source of income? 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) Atherosclerosis of crow coronary artery without angina pectoris Carotid artery stenosis, asymptomatic, right Encounter for long-term current use of medication Type 2 diabetes mellitus with hemoglobin A1c goal of less than 8.0% (HCC) Recurrent deep vein thrombosis (DVT) of both lower extremities ([facility]) Chronic hypoxemic respiratory failure (HCC) Chronic kidney disease, stage 3b (HCC) ILD (interstitial lung disease) ([facility]) Moderate episode of recurrent major depressive disorder ([facility]) Primary osteoarthritis of both knees Type 2 diabetes mellitus with stage 3b chronic kidney disease, with long-term current use of insulin ([facility]) Anxiety state Sacroiliitis, not elsewhere classified ([facility]) DM peripheral angiopathy ([facility]) Morbid (severe) obesity due to excess calories ([facility]) Iron deficiency Hydronephrosis of right kidney VRE (vancomycin-resistant Enterococci) infection Body mass index (BMI) of 45.0 to 49.9 in adult ([facility]) Current Outpatient Medications Medication Sig [...] Units under the skin every evening. Per [facility] pharmacist) 60 mL 3 Atorvastatin Calcium 20 [...] bedtime. (Patient not taking: Reported on 06/26/2024) OneXOG In Vitro Strip (Glucose Blood) Use up [...] History: Diagnosis Date ELSIE (acute kidney injury) ([facility]) 06/12/2018 Allergic rhinitis due to other allergen Chronic hypoxemic respiratory failure ([facility]) 01/07/2022 Diverticulosis of colon 01/28/2006 Essential hypertension with goal blood pressure less than 140/90 02/22/2014 ELLIE (generalized anxiety disorder) 09/13/2009 [address] filter in place 08/19/2014 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[facility]) 08/22/2009 History of pulmonary embolus [...] DO at OR [facility] INJECT DX/THER SUBSTANCE INTERLAMINAR LUMBAR/SACRAL W IMAGE GUIDE 05/14/2021 INJECTION SPINE LUMBAR OR SACRAL performed by Raj Ahn, at OR [facility] INJECT DX/THER SUBSTANCE INTERLAMINAR LUMBAR/SACRAL W IMAGE GUIDE 08/13/2021 INJECTION SPINE LUMBAR OR SACRAL performed by Raj Ahn DO at OR [facility] KNEE ARTHROSCOPY/DEBRIDEMENT 07/27/[address] PERMANENT GASTROSTOMY TUBE 09/06/2009 GASTROSTOMY WITH CONSTUCTION GASTRIC TUBE performed by AMADOU NUNEZ at [facility] REMOVAL OF THYROID GLAND 06/15/2011 THYROIDECTOMY INCLUDING SUBSTERNAL THYROID CERVICAL APPROACH performed by DANNY HOLDER at OR [facility] REMOVE GALLBLADDER 09/06/2009 CHOLECYSTECTOMY performed by AMADOU NUNEZ at [facility] REPAIR RECURRENT INCISIONAL HERNIA 09/26/1998 REVISION OF COLOSTOMY, SIMPLE 09/26/1997 SACROILIAC JOINT INJECT W/GUIDANCE 07/28/2020 INJECTION SACROILIAC JOINT performed by Raj Callum Ahn, DO at OR [facility] SACROILIAC JOINT INJECT W/GUIDANCE 03/03/2022 INJECTION SACROILIAC JOINT performed by Raj Callum Ahn, DO at OR [facility] SACROILIAC JOINT INJECT W/GUIDANCE 05/04/2023 INJECTION SACROILIAC JOINT performed by [place] Callum Ahn DO at OR [facility] SUTURE, LARGE INTESTINE W/COLOSTOMY 09/26/1996 perforation R colon with colostomy TRANSCATH STENT-CAROTID ARTERY, W/EMBOL PROTECTION Right 09/06/2023 Dr. Tang VENA CAVA FILTER/LIGATION/CLIP 08/19/2009 Brooklyn filter placement through the right femoral [...] (HCC) Continue Oxygen ILD (interstitial lung disease) ([facility]) DM peripheral angiopathy (HCC) - TELEMEDICINE DIABETIC EYE - ADULT/PEDS OPHTHALMOLOGY/OPTOMETRY [...] - PHYSICAL THERAPY REFERRAL OP Atherosclerosis of crow coronary artery of crow heart without angina pectoris Continue ASA Other abnormalities of gait and mobility Anxiety state Continue Clonazepam Iron deficiency Hydronephrosis of right kidney Right Ureter Stent change per Urology at [facility] Brooklyn filter in place Recurrent deep vein thrombosis [...] information about this test. Date Last Reviewed: 02/25/201619994422-1650 [employer]. [address] [place] [address], [place] [address]. All rights reserved. This information is not intended as a substitute for professional medical care. Always follow your healthcare professional's instructions. documented in this encounter Plan of Treatment Upcoming Encounters Date Type Department Care Team (Late st Contact Info) Description 07/17/2024 1:30 PM EDT Office Visit Cardiology, [facility] [address] [place] [address] Marjorie Powell PA-C [address] [place] [address] 07/31/2024 2:20 PM EST Office Visit Family Practice [address] [place] [address] [address] [place] [phone] Galdino Andujar DO [address] [place] [address] 09/12/2024 11:00 AM EST Office Visit Nephrology, [facility] [address] [facility] [place] [address] Erik Lenz MD [address] [facility] [place] [address] 02/19/2025 1:00 PM EDT Nurse Only Family Practice [address] [place] [address] [address] [place] [phone] Shira De La Rosa, LEXI [address] [place] [phone] 06/13/2025 1:30 PM EDT Imaging Radiology [facility] [address] [place] [address] Pending Results Name Type Priority Associated Diagnoses Date /Time HEMOGLOBIN A1C Lab Routine Type 2 diabetes mellitus with stage 3b chronic kidney disease, with long-term current use of insulin ([facility]) 06/26/2024 2:30 PM EDT CBC WITH WBC DIFFERENTIAL Lab Routine Type 2 diabetes mellitus with stage 3b chronic kidney disease, with long-term current use of insulin ([facility]) 06/26/2024 2:30 PM EDT COMPREHENSIVE METABOLIC PANEL Lab Routine Type 2 diabetes mellitus with stage 3b chronic kidney disease, with long-term current use of insulin ([facility]) 06/26/2024 2:30 PM EDT CBC Lab Routine [...] Additional history exists CKD PHOS USE SMARTSET [id number] 12/26/2024 04/0 10/2023, 02/11/2023, 01/07/2022, Additional history exists Adult Wellness Visit 02/13/2025 02/14/2024, 08/05/20 22 Depression Monitoring 02/13/2025 02/14/2024 CKD HGB USE SMARTSET [id number] 05/18/202505/18, 05/18/2024, 12/22/2023, Additional history exists Mammogram [...] lumbar region, without neurogenic claudication Atherosclerosis of crow coronary artery of crow heart without angina pectoris Other abnormalities of gait and mobility Anxiety state Anxiety state, unspecified Iron deficiency Iron deficiency anemia, unspecified Hydronephrosis of right kidney Hydronephrosis Brooklyn filter in place Other postprocedural status Recurrent deep vein thrombosis (DVT) of both lower extremities (HCC) History of pulmonary embolus (PE) Personal history of pulmonary embolism Screening mammogram for breast cancer documented in this encounter Advance Directives Documents on File Type Date Recorded Patient Neonatal Pediatric Nurse Expl anation POLST 03/19/2020 4:25 PM [...] (no specific identity) Health Care Power of [employer] [employer] Tender Princess Other - (no specific identity) Health Care Power of [employer] Tender Care Teams Loan Operations Specialist Relationship Specialty Start Date End Date Galdino Andujar DO [address] [place] [address] PCP - General Internal Medicine 03/08/24 documented as of this encounter
--- OUTSIDE RECORDS SUMMARY | 2024-12-09 19:34 | External Medical Summary | Summary of Care ---
Author Name Unknown Organization [facility] Address [address] [place] [address] Phone [phone] Care Team Providers Care Service Vehicle Operator Name Role Phone Lexii Andujar DO Primary Care Provider [phone] Reason for Visit * Reason Onset Date Comments Medication Refill 06/19/2024 Encounter Details Date Type Department Care Team (Late st Contact Info) Description 06/19/2024 Refill Family Practice [address] [place] [address] [place] [phone] Lexii Andujar DO [address] [place] [address] Lumbar radiculopathy; Primary osteoarthritis of left knee; Spinal stenosis of lumbar region without neurogenic claudication Allergies Active Allergy Reactions Criticality Noted Date [...] as of this encounter (statuses as of 06/20/2024) Medications Medication Sig Dispensed Refills Start Date End Date Status ONEOBEYUCH DELFRANTZ LANCETS [facility] Check blood sugars 3-4 times daily 180 [...] 3 Active Additional Information Patient taking differently: 37 Units Subcutaneous DAILY(1900), (No instructions reported), Reported on 04/04/2024 Atorvastatin Calcium 20 MG Oral Tablet (Lipitor) [...] and 1 Tablet before bedtime. 60 Tablet 4 Active Ferrous Sulfate 325 (65 Fe) [...] in case of dexcom failure 100 Strip 4 Active Gabapentin 300 MG Oral Capsule [...] or other meds) 30 Tablet 4 Active Mounjaro 5 MG/0.5ML Subcutaneous Solution Pen-injector (Tirzepatide) Inject 5 mg under the skin once a week. 2 mL 03/12/20 25 Active Additional Information Patient taking differently:5 mg Subcutaneous QWEEK,05/18/24 Taking on Tuesdays, Reported on 05/18/2024 Senna-Time S 8.6-50 MG Oral Tablet (senna-docusate) TAKE 1 TABLET BY MOUTH IN THE MORNING AND AT BEDTIME 60 Tablet 4 Active Doxycycline Hyclate 100 MG Oral [...] the morning 30 Capsule 5 4 Active traMADol HCl 50 MG Oral Tablet (Ultram)Indications :Lumbar radiculopathy,Prima ry osteoarthritis of left knee Take 1 Tablet by mouth every 8 hours as needed for Pain, Severe. 90 Tablet 4 Active oxyCODONE HCl 5 MG Oral Tablet (Oxy IR)Indications:Lumb ar radiculopathy,Spina l stenosis of lumbar region without neurogenic claudication Take 1 Tablet by mouth every 6 hours as needed for Pain, Severe. 45 Tablet 4 Active oxyCODONE HCl 5 MG Oral Tablet (Oxy IR)Indications:Spin al stenosis of lumbar region without neurogenic claudication,Lumbar radiculopathy Take 1 Tablet by mouth every 6 hours as needed for Pain, Severe. 45 Tablet 4 06/19/20 24 Discontinu ed(Refill) traMADol HCl 50 MG Oral Tablet (Ultram)Indications :Lumbar radiculopathy,Prima ry osteoarthritis of left knee Take 1 Tablet by mouth every 8 hours as needed for Pain, Severe. 90 Tablet 4 06/19/20 24 Discontinu ed(Refill) documented as of this encounter (statuses as of 06/20/2024) Active Problems Problem Noted Date Diagnosed Date [...] rx for atorvastatin and plavix to pick out hand at pharmacy. Type 2 diabetes mellitus wit [...] (HIT) 2 Atherosclerosis of [place] ronary artery without angina pectoris 12/31/2021 [...] evidently given by vascular, has to pick out hand rx documented as of this encounter (statuses as of 06/20/2024) Resolved Problems Problem Noted Date Diagnosed Date [...] as of this encounter (statuses as of 06/20/2024) Immunizations Name Administration Dates Next Due COVID-19 mRNA, LNP-s, No Pre serve, 2-Dose Series ([employer]) 01/08/2021,12/18/2020 COVID-19, LNP-s, No Preserve , Navarro-sucrose, Ages 12+ (Pfizer) 2022,10/01/2021 COVID-19, MRNA-LNP, 23-24, P F, 30 MCG/0.3 mL, 12 YRS AND ABOVE, IM (PFIZER-Comirnaty) 07/26/2023 Pneumococcal Conjugate Vacci ne, 20-valent ([id number]) 03/12/2022 Pneumococcal Polysaccharide PPV23 (Pneumovax) 08/22/2009,06/15/2006 RSV Vac., Bivalent, Perfusio n F, Pf,0.5 Ml (Abrysvo) 02/14/2024 Season Influenza, Quad, PF, Adjuvanted, 65+ Yrs, IM (FLUAD) 06/13/2020 Seasonal Influenza, PF, 6 M & above, IM , (FluLaval or Fluzone) 07/23/2019,06/12/2018,07/14/2017 Seasonal Influenza, Quadriva lent Hd (Fluzone Hd) 06/21/2023,06/18/2022,07/20/2021 Seasonal Influenza, Quadriva lent, No Preserve, IM 06/24/2016,07/24/2015 Seasonal Influenza, Trivalen t, (IIV3), with Preserv, (Fluzone) 06/13/2014,07/07/2012,06/28/2011,06/15,08/01/2009,07/04/2008,08/14/2007 ,10/19/2006 Varicella Zoster Vaccine (Adult) 12/11/2015 [...] No 02/14/2024 Does the household have a [facility] source of income? (Household - [...] Miscellaneous Notes * Telephone Encounter - Lexii Andujar, - 06/20/2024 3:46 PM EDTSigned Prescriptions: Disp Refills traMADol HCl 50 MG Oral Tablet (Ultram) 90 Tab*0 Sig: Take 1 Tablet by mouth every 8 hours as needed for Pain, Severe.Authorizing Provider: LEXII ANDUJAR oxyCODONE HCl 5 MG Oral Tablet (Oxy IR) 45 Tab*0 Sig: Take 1 Tablet by mouth every 6 hours as needed for Pain , Severe.Authorizing Provider: LEXII ANDUJAR * Telephone Encounter - Lexii Andujar DO - 06/20/2024 3:46 PM EDT I have reviewed the patients controlled substance dispensing history in the Prescription Drug Monitoring Program in compliance with the [facility] regulations before prescribing a controlled [...] results can be found in Results Review. Medications are both due. * Telephone Encounter - Paula Harris, [facility] - 06/20/2024 1:42 PM EDT Pending Prescriptions: Disp Refills traMADol HCl 50 MG Oral Tablet (Ultram) 90 Tab*0 Sig: Take 1 Tablet by mouth every 8 hours as needed for Pain, Severe. oxyCODONE HCl 5 MG Oral Tablet (Oxy IR) 45 Tab*0 Sig: Take 1 Tablet by mouth every 6 hours as needed for Pain, Severe. * Telephone Encounter - Paula Harris [facility] - 06/20/2024 1:41 PM EDT I have reviewed the patients controlled substance dispensing history in the Prescription Drug Monitoring Program in compliance with the [facility] regulations before prescribing a controlled substance. PDMP checked on 06/20/2024. Pending Prescriptions: Disp Refills traMADol HCl 50 MG Oral Tablet (Ultram) 90 Tab*0 Sig: Take 1 Tablet by mouth every 8 hours as needed for Pain, Severe. oxyCODONE HCl 5 MG Oral Tablet (Oxy IR) 45 Tab*0 Sig: Take 1 Tablet by mouth every 6 hours as needed for Pain, Severe. Last Visit: 05/18/2024 (in office), 04/23/2024 (telemedicine) Next Visit: 06/26/2024 Date medication was last filled: 04/24/24 Date medication is due for refill: oxycodone 05/06/24, tramadol 05/23/24 Pharmacy: [facility] [address] Is this request for a controlled [...] in Results Review. Please approve if appropriate. Paula Ly [facility] Clinical Pharmacist [facility] ([facility]) [phone] * Telephone Encounter - Marilee Ibarra CPhT - 06/19/2024 10:20 AM EDT Did you pend patient's preferred pharmacy and medication before forwarding?yes Pharmacy: [address] Pending Prescriptions: Disp Refills traMADol HCl 50 MG Oral Tablet (Ultram) 90 Tab*0 Sig: Take 1 Tablet by mouth every 8 hours as needed for Pain, Severe. oxyCODONE HCl 5 MG Oral Tablet (Oxy IR) 45 Tab*0 Sig: Take 1 Tablet by mouth every 6 hours as needed for Pain, Severe. Last Visit: 05/18/2024 (in office), 04/23/2024 (telemedicine) Next Visit: 06/19/2024 If no future appointments scheduled, and last appointment is greater than a year ago, please schedule patient for a follow-up appointment Last date the medication was ordered: [id number] Is this request for a controlled substance?Yes, What was the last refill date 302024 w/ quantity 45 90 and dosage 5mg and Urine Drug Screen was completed Urine [...] Results Component Value Date/Time CREAT 1.8 (H) 05/18/2024 04:04 PM CREAT 1.69 09/07/2023 12:00 AM CREAT 2.0 (H) 05/06/2020 08:46 AM POTASSIUM 4.3 05/18/2024 04:04 PM POTASSIUM 3.9 07/25/2023 12:00 AM POTASSIUM 4.0 05/06/2020 08:46 AM TSH 1.36 12/22/2023 11:39 AM TSH 5.35 (H) 05/06/2020 08:46 AM LDL 60 11/07/2023 04:43 PM LDL UNINTERPRETABLE RESULT 03/14/2019 01:54 PM LDL 126 03/14/2019 01:54 PM ALT 13 05/18/2024 04:04 PM ALT 27 05/06/2020 08:46 AM HGBA1C 8.6 (H) 03/26/2024 11:15 AM HGBA1C 7.5 (H) 09/20/2023 12:00 AM HGBA1C 7.3 (H) 01/23/2020 11:11 AM documented in this encounter Plan of Treatment Upcoming Encounters Date Type Department Care Team (Late st Contact Info) Description 06/26/2024 1:40 PM EDT Office Visit Family Practice [address] [facility] [address] [place] [phone] Lexii Andujar DO [address] [place] [address] 07/17/2024 1:30 PM EDT Office Visit Cardiology, [facility] [address] [facility] [place] [address] Marjorie Powell PA-C [address] [facility] [place] [address] 09/12/2024 11:00 AM EST Office Visit Nephrology, [facility] [address] [place] [address] Erik Lenz MD [address] [facility] [place] [address] 02/19/2025 1:00 PM EDT Nurse Only Ancillary [address] [facility] [address] [facility] [address] College, Nurse Annual Wellness Visit [address] [address] 06/13/2025 1:30 PM EDT Imaging Radiology [facility] [address] [facility] [place] [address] Scheduled Procedures Name Priority Associated Diagnoses Date/Ti me COLONOSCOPY FLEXIBLE PROXIMAL DIAGNOSTIC Recall Colon cancer screening Health Maintenance Due Date Last Done Comments Cologuard 2000 Fecal Occult Blood Test 2000 Sigmoidoscopy 2000 Diabetic Eye Exam 05/09/2024 05/09/2023, , 05/24/2022, Additional history exists Influenza Vaccine (FLU shot) (#1) 2024 06/21/2023, 06/18/2022, 07/20/2021, Additional history exists Albumin/Creatinine Ratio 08/05/2024 023, 11/01/2022, 01/07/2022, Additional history exists HbA1c 09/26/2024 03/26/2024, 11/25, 09/20/2023, Additional history exists Diabetic Foot Exam 10/04/2024 10/04/2023, 0 11/01/2022, 01/07/2022, Additional history exists GFR 11/18/2024 05/18/2024, 05/0 05/2024, 12/27/2023, Additional history exists TSH 12/21/2024 12/22/2023, 09/26, 11/01/2022, Additional history exists CKD PHOS USE SMARTSET [id number] 12/26/2024 04/0 10/2023, 02/11/2023, 01/07/2022, Additional history exists Adult Wellness Visit 02/13/2025 02/14/2024, 08/05/20 22 Depression Monitoring 02/13/2025 02/14/2024 CKD HGB USE SMARTSET [id number] 05/18/202505/18, 05/18/2024, 12/22/2023, Additional history exists Mammogram 06/12/2025 06/12/2024, 03/27, 02/11/2022, Additional history exists Colonoscopy 02/17/2026 02/18/2016, 01/25, 01/28/2006, Additional history exists Colorectal Cancer Screening 02/17/2026 Zoster Vaccines Completed 05/08/2020, 10/27, 12/11/2015 Pneumococcal Vaccine: 65+ Years Completed 03/12/2022, 08/22/2009, 06/15/2006 COVID-19 Vaccine Discontinued 07/26/2023, , 10/01/2021, Additional history exists HPV (Gardasil) Vaccine Aged [...] Spinal stenosis, lumbar region, without neurogenic claudication Screening mammogram for breast cancer documented in this encounter Advance Directives Documents on File Type Date Recorded Patient Lead Electrician Expl anation POLST 03/19/2020 4:25 PM POLST [...] (no specific identity) Health Care Power of Marketing Analytics Lead Princess Allen Other - (no specific identity) Health Care Power of Marketing Analytics Lead Care Teams Service Vehicle Operator Relationship Specialty Start Date End Date Lexii Andujar DO [address] [place] [place] [address] PCP - General Internal Medicine 03/08/24 documented as of this encounter
--- OUTSIDE RECORDS SUMMARY | 2024-12-09 19:34 | External Medical Summary ---
Author Name Unknown Address Unknown Organization [id number]:[facility] [place] [address] [facility] [address] Laboratory Report Ordering Provider Test Date Status JAG SHULTZ 06/26/2024 14:30:21 Final Observation Date Value Abnormality Reference (Units ) Status WBC, Total 06/26/2024 14:30:21 11.93 Above high normal 4.00-10.80 (K/uL) Final RBC 06/26/2024 14:30:21 4.50 3.85-5.15 (M/uL) Final Hemoglobin 06/26/2024 14:30:21 13.0 12.0-15.3 (g/dL) Final HCT 06/26/2024 14:30:21 42.2 36.0-45.2 (%) Final MCV 06/26/2024 14:30:21 93.8 81.5-97.5 (fL) Final MCH 06/26/2024 14:30:21 28.9 27.0-34.0 (pg) Final MCHC 06/26/2024 14:30:21 30.8 32.0-36.0 (g/dL) Final RDW 06/26/2024 14:30:21 14.6 11.5-15.5 (%) Final Platelets 06/26/2024 14:30:21 343 140-400 (K/uL) Final MPV 06/26/2024 14:30:21 10.3 6.6-11.1 (fL) Final Nucleated erythrocytes/100 leukocytes [Ratio] in Blood by Automated count 06/26/2024 14:30:21 0 <=0 (/100 WBCs) Final Performing Location [facility] [place] [address] [place] [address]
--- OUTSIDE RECORDS SUMMARY | 2024-12-09 19:34 | External Medical Summary | Summary of Care ---
Author Name Unknown Organization [facility] Address [address] [place] [address] Phone [phone] Care Team Providers Care Carroting Machine Offbearer Name Role Phone Lexii Andujar DO Primary Care Provider [phone] Reason for Visit * Reason Onset Date Comments Medication Refill 06/19/2024 Encounter Details Date Type Department Care Team (Late st Contact Info) Description 06/19/2024 Refill Family Practice [address], [place] [address] [place] [phone] Lexii Andujar DO [address] [place] [address] Irritable bowel syndrome, unspecified type Allergies Active Allergy Reactions Criticality Noted Date [...] as of this encounter (statuses as of 06/19/2024) Medications Medication Sig Dispensed Refills Start Date [...] Dexcom G7 Sensor Use as directed. (From [facility]) 3 Active BD Pen Needle Short [...] THE MORNING 30 Capsule 5 4 Active oxyCODONE HCl 5 MG Oral Tablet (Oxy IR)Indications:Spin al stenosis of lumbar region without neurogenic claudication,Lumbar radiculopathy Take 1 Tablet by mouth every 6 hours as needed for Pain, Severe. 45 Tablet 4 Active traMADol HCl 50 MG Oral Tablet (Ultram)Indications :Lumbar radiculopathy,Prima ry osteoarthritis of left knee Take 1 Tablet by mouth every 8 hours as needed for Pain, Severe. 90 Tablet 4 Active Furosemide 40 MG Oral Tablet [...] needed for Cramping. 180 Tablet 3 4 06/19/20 24 Discontinu ed(Refill) documented as of this encounter (statuses as of 06/19/2024) Active Problems Problem Noted Date Diagnosed Date [...] 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 Atherosclerosis of [place] co ronary artery without angina pectoris [...] Assessment & Plan: Home PT to start [place] filter in place 08/19/2014 History of pulmonary [...] as of this encounter (statuses as of 06/19/2024) Resolved Problems Problem Noted Date Diagnosed Date [...] as of this encounter (statuses as of 06/19/2024) Immunizations Name Administration Dates Next Due COVID-19 mRNA, LNP-s, No Pre serve, 2-Dose Series (Foxfly) 01/08/2021,12/18/2020 COVID-19, LNP-s, No Preserve , Navarro-sucrose, Ages 12+ (Foxfly) 2022,10/01/2021 COVID-19, MRNA-LNP, 23-24, P F, 30 MCG/0.3 mL, 12 YRS AND ABOVE, IM (Magzter-Comirnat) 07/26/2023 Pneumococcal Conjugate Vacci ne, 20-valent (Labnsmd14) 03/12/2022 Pneumococcal Polysaccharide PPV23 (Pneumovax) 08/22/2009,06/15/2006 RSV [...] Telephone Encounter - Lexii Andujar DO - 06/19/2024 10:49 AM EDTSigned Prescriptions: Disp Refills Dicyclomine HCl 20 MG Oral Tablet (Bentyl) 180 Ta*3 Sig: Take 1 Tablet by mouth 4 times a day as needed for Cramping.Authorizing Provider: LEXII ANDUJAR * Telephone Encounter - Marilee Ibarra [facility] - 06/19/2024 10:19 AM EDT Did you pend patient's preferred pharmacy and medication before forwarding?yes Pharmacy: [facility] [id number] [facility] Pending Prescriptions: Disp Refills Dicyclomine HCl 20 MG Oral Tablet (Bentyl)180 Ta*3 Sig: Take 1 Tablet by mouth 4 times a day as needed for Cramping. Last Visit: 05/18/2024 (in office), 04/23/2024 (telemedicine) Next Visit: 06/19/2024 If no future appointments scheduled, and last appointment is greater than a year ago, please schedule patient for a follow-up appointment Last date the medication was ordered: [id number] Is this request for a controlled substance?No [...] 1:40 PM EDT Office Visit Family Practice [address] [place] [address] 293 [place] [address] Lexii Andujar DO 293 [place] [address] 07/17/2024 1:30 PM EDT Office Visit Cardiology, [facility] [address] [facility] [place] [address] Marjorie Powell, PADar 132 [facility] [place] [address] 09/12/2024 11:00 AM EST Office Visit Nephrology, [facility] Champion [address] [place] [address] Erik Lenz MD [address] [place], [place] [address] 02/19/2025 1:00 PM EDT Nurse Only Ancillary [address], [place] [address] [place] [address] College, Nurse Annual Wellness Visit [address] [facility] [address] [facility], [place] [address] 06/13/2025 1:30 PM EDT Imaging Radiology [facility] [address] [facility], [place] [address] [place] [address] Scheduled Procedures Name Priority Associated Diagnoses Date/Ti [...] Additional history exists CKD PHOS USE SMARTSET 24582 12/26/2024 04/0 10/2023, 02/11/2023, 01/07/2022, Additional history exists Adult Wellness Visit 02/13/2025 02/14/2024, 08/05/20 22 Depression Monitoring 02/13/2025 02/14/2024 CKD HGB USE SMARTSET 71469 05/18/202505/18, 05/18/2024, 12/22/2023, Additional history exists Mammogram [...] as of this encounter Visit Diagnoses Diagnosis Irritable bowel syndrome, unspecified type Screening mammogram for breast cancer documented in this encounter Advance Directives Documents on File Type Date Recorded Patient Ground Operations Crew Member Expl anation POLST 03/19/2020 4:25 PM [...] (no specific identity) Health Care Power of Inspector Balance Bridge Princess Allen Other - (no specific identity) Health Care Power of Inspector [place] Care Teams Carroting Machine Offbearer Relationship Specialty Start Date End Date Lexii Andujar DO [address] [place] [address] PCP - General Internal Medicine 03/08/24 documented as of this encounter
--- OUTSIDE RECORDS SUMMARY | 2024-12-09 19:34 | External Medical Summary ---
Author Name Unknown Address Unknown Organization K01:[facility] [place] [address] [facility] [address] Laboratory Report Ordering Provider Test Date Status JAG SHULTZ 06/26/2024 14:30:21 Final Observation Date Value Abnormality Reference (Units ) Status BUN 06/26/2024 14:30:21 32 Above high normal 6-20 (mg/dL) Final Creatinine 06/26/2024 14:30:21 1.8 Above high normal 0.5-1.0 (mg/dL) Final Glomerular filtration rate/1.73 sq M.predicted [Volume Rate/Area] in Serum, Plasma or Blood by Creatinine-based formula (CKD-EPI) 06/26/2024 14:30:21 29 Below low normal >=60 (mL/min) Final eGFR is calculated based on the CKD-EPI 2020 equation. Sodium 06/26/2024 14:30:21 136 135-146 (m mol/L) Final Potassium 06/26/2024 14:30:21 4.7 3.5-5.1 (m mol/L) Final Cl 06/26/2024 14:30:21 95 Below low normal 98- 107 (mmol/L) Final CO2 06/26/2024 14:30:21 29 22-32 (mmo l/L) Final Anion gap 06/26/2024 14:30:21 12 7-15 (mmol /L) Final Glucose 06/26/2024 14:30:21 177 Above high normal 70 -120 (mg/dL) Final Albumin 06/26/2024 14:30:21 4.1 3.8-5.0 (g /dL) Final AST (Aspartate aminotransferase) 06/26/2024 14:30:21 15 10-35 (U/L) Fin al Alk Phos 06/26/2024 14:30:21 134 Above high normal 35 -130 (U/L) Final Bilirubin, Total 06/26/2024 14:30:21 0.3 <=1 .2 (mg/dL) Final Calcium 06/26/2024 14:30:21 9.6 8.4-10.2 ( mg/dL) Final Protein 06/26/2024 14:30:21 7.4 6.0-8.3 (g /dL) Final ALT (Alanine aminotransferase) 06/26/2024 14:30:21 9 Below low normal 10-35 (U/L) Final Performing Location [facility] [place] [address] [facility] [address]
--- OUTSIDE RECORDS SUMMARY | 2024-12-09 19:34 | External Medical Summary | Summary of Care ---
Author Name Unknown Organization [facility] Address [address] [place] [address] Phone [phone] Care Team Providers Care Cattle Rancher Name Role Phone Galdino Andujar DO Primary Care Provider [phone] Reason for Visit * Reason Onset Date Comments Referral 06/26/2024 PT, DM eye exam, psych Encounter Details Date Type Department Care Team (Late st Contact Info) Description 06/26/2024 Telephone Family Practice [address] [facility], [place] [address] [place] [address] Galdino Andujar DO [address] [place] [address] Referral (PT, DM eye exam, psych) Allergies Active Allergy Reactions Criticality Noted Date [...] Sensor Use as directed. (From [facility]) 06/01/2023 Active BD Pen Needle Short [...] taking differently: 39 Units Subcutaneous DAILY(1900), Per [facility] pharmacist, Reported on 06/26/2024 Atorvastatin Calcium [...] mouth at bedtime. 30 Tablet 05/24/2024 Active clonazePAM 0.5 MG Oral Tablet [...] insulin ([facility]) Inject 7.5 mg under the skin [...] Assessment & Plan: Home PT to start [place] filter in place 08/19/2014 History of pulmonary [...] (PFIZER-Comirnaty) 07/26/2023 Pneumococcal Conjugate Vacci ne, 20-valent (Cowfcjq28) 03/12/2022 Pneumococcal Polysaccharide PPV23 (Pneumovax) 08/22/2009,06/15/2006 RSV [...] Encounter - Irina Vergara OSA - 06/26/2024 2:32 PM EDT PT - Order faxed to [facility] in [place], they will reach out to pt directly to schedule. Pt aware. DM eye - Pt scheduled at [facility] on 07.06.24 at 12:00. Pt aware Psych - that dept will reach out to her to schedule. Pt also provided the contact number for [place] [facility] scheduling. Pt advised to let us know if she doesn't hear back from [facility] or PT. documented in this encounter Plan of Treatment Upcoming Encounters Date Type Department Care Team (Late st Contact Info) Description 07/17/2024 1:30 PM EDT Office Visit Cardiology, [facility] [address] [place] [address] Marjorie Powell PA-C [address] [place] [address] 07/31/2024 2:20 PM EST Office Visit Family Practice 65 [facility] 293 [facility] [place] [phone] Galdino Andujar DO 293 [place] [address] 09/12/2024 11:00 AM EST Office Visit Nephrology, [facility] 200 [facility] [place], [place] [address] Erik Lenz MD 200 [facility] [place] [address] 02/19/2025 1:00 PM EDT Nurse Only Family Practice 65 [facility] 293 [facility] [place] [phone] Shira De La Rosa RN 293 [place] [phone] 06/13/2025 1:30 PM EDT Imaging Radiology [address] [facility] [place] [address] Scheduled Procedures Name Priority Associated Diagnoses Date/Ti [...] Additional history exists CKD PHOS USE SMARTSET 55580 12/26/2024 04/0 10/2023, 02/11/2023, 01/07/2022, Additional history exists Adult Wellness Visit 02/13/2025 02/14/2024, 08/05/20 22 Depression Monitoring 02/13/2025 02/14/2024 CKD HGB USE SMARTSET 24627 05/18/202505/18, 05/18/2024, 12/22/2023, Additional history exists Mammogram [...] Documents on File Type Date Recorded Patient Consumer Educator Expl anation POLST 03/19/2020 4:25 PM [...] (no specific identity) Health Care Power of Chief Technician X Ray Princess Allen Other - (no specific identity) Health Care Power of Chief Technician X Ray Care Teams Cattle Rancher Relationship Specialty Start Date End Date Galdino Andujar DO [address] [place] [address] PCP - General Internal Medicine 03/08/24 documented as of this encounter
--- OUTSIDE RECORDS SUMMARY | 2024-12-09 19:34 | External Medical Summary ---
Author Name Unknown Address Unknown Organization K01:LABORATORY [facility] - [address] [facility] [address] Laboratory Report Ordering Provider Test Date Status JAG SHULTZ 06/26/2024 14:30:21 Final Observation Date Value Abnormality Reference (Units ) Status SYNC LEUKOCYTES IN BLOOD BY AUTOMATED COUNT 06/26/2024 14:30:21 11.93 Above high normal 4.00-10.80 (K/uL) Final Segs 06/26/2024 14:30:21 69.9 40.0-75.0 (%) Final Lymphs % 06/26/2024 14:30:21 19.2 18.0-42.0 (%) Final Monos 06/26/2024 14:30:21 6.0 1.0-11.0 (%) Final Eosinophils 06/26/2024 14:30:21 3.5 0.0-6.0 (%) Final Basos 06/26/2024 14:30:21 0.7 0.0-2.0 (%) Final Immature Granulocyte, Percent 06/26/2024 14:30:21 0.7 0.0-2.0 (%) Final Absolute Segs 06/26/2024 14:30:21 8.35 Above high normal 1.80-7.70 (K/uL) Final Lymphs, absolute 06/26/2024 14:30:21 2.29 1.00-4.80 (K/ul) Final Monos, Abs 06/26/2024 14:30:21 0.71 0.00-1.10 (K/uL) Final Eos, Abs 06/26/2024 14:30:21 0.42 0.00-0.70 (K/uL) Final Basos, Abs 06/26/2024 14:30:21 0.08 0.00-0.20 (K/uL) Final Immature Granulocytes, Number 06/26/2024 14:30:21 0.08 0.00-0.20 (K/uL) Final Performing Location LAB[facility]ATORY [facility] [place] - [address] [facility] [address]
--- OUTSIDE RECORDS SUMMARY | 2024-12-09 19:34 | External Medical Summary ---
Author Name Unknown Address Unknown Organization K01[place] [place] [address] [facility] [address] [facility] [address] Laboratory Report Ordering Provider Test Date Status JAG SHULTZ 06/26/2024 14:30:21 Final Observation Date Value Abnormality Reference (Units ) Status HbA1C 06/26/2024 14:30:21 7.8 Above high normal 4. 0-5.6 (%) Final The use of HbA1c to monitor glycemic status is based on normal hemoglobin and HbA composition. This test should not be used in patients with abnormal hemoglobin that affects the half life of the red blood cell or the in vivo glycation rates. Glucose, estimated average 06/26/2024 14:30:21 177 Above high normal <126 (mg/dL) Adrián astorga Performing Location [facility] [place] [address] [facility] [address] [facility] [address]
[2024-12-09 19:49] LABS: Basophils # (auto) 0.06 K/uL (0.00-0.20); Basophils % (auto) 0.5 %; Eosinophils # (auto) 0.33 K/uL (0.00-0.50); Eosinophils % (auto) 2.7 %; Hematocrit (blood only) 38.5 % (37.0-47.0); Immature Granulocytes # (auto) 0.09 K/uL (0.01-0.20); Immature Granulocytes % (auto) 0.7 %; Lymphocytes # (auto) 2.07 K/uL (1.20-3.40); Lymphocytes % (auto) 16.9 %; Mean Corpuscular Hemoglobin 28.9 pg (25.0-34.0); Mean Corpuscular Hgb Conc 31.2 g/dL (32.0-36.0); Mean Corpuscular Volume 92.8 fL (80.0-100.0); Mean Platelet Volume 9.5 fL (9.4-12.4); Monocytes # (auto) 0.72 K/uL (0.11-0.59); Monocytes % (auto) 5.9 %; Neutrophils # (auto) 9.01 K/uL (1.40-6.50); Neutrophils % (auto) 73.3 %; Platelet Count 351 K/uL (130-400); RDW Coefficient of Variation 13.6 % (11.5-14.5); RDW Standard Deviation 46.5 fL (36.4-46.3); Red Blood Count 4.15 M/uL (4.20-5.40); White Blood Count 12.28 K/ul (4.8-10.8)
[2024-12-09 19:54] LABS: Appearance Urine Cloudy (Clear); Bacteria Urine Automated 2+ (None Seen); Bilirubin Urine Negative (Negative); Blood Urine 3+ (Negative); Color Urine Yellow; Epithelial Cell Urine Auto 0-2 /hpf (0-2); Glucose Urine UA Negative (Negative); Ketones Urine Negative (Negative); Leukocyte Esterase Urine 3+ (Negative); Nitrite Urine Negative (Negative); Protein Urine 1+ (Negative); RBC Urine Automated >20 /hpf (0-2); Specific Gravity Urine 1.008 (1.000-1.030); Urobilinogen Urine Negative (Negative); WBC Urine Automated >50 /hpf (0-5)
[2024-12-09 20:06] LABS: Albumin Level 3.9 gm/dl (3.4-5.0); BUN Creatinine Ratio 16.7 (10-20); Bilirubin,Total 0.3 mg/dl (0.2-1.0); Calcium 9.3 mg/dl (8.6-10.3); Creatinine Clr Calc Pharmacy 36.4 ml/min; Globulin 3.8 gm/dl (2.5-4.0); Potassium 3.8 mmol/L (3.5-5.1); Total Protein 7.7 gm/dl (6.0-8.3)
[2024-12-09] MEDS: SODIUM CHLORIDE 0.9% 1,000 ML IV ONE (20:59)
[2024-12-09] MEDS: cefTRIAXone SODIUM 2,000 MG/50 ML BAG IV STA (20:59)
[2024-12-09] MEDS: fentaNYL citrate PF 100 MCG/2 ML VIAL IV STA (21:41)
[2024-12-09] MEDS: SODIUM CHLORIDE 0.9% 500 ML IV ONE (21:42)
[2024-12-09] MEDS: DAPTOmycin 850 MG in SYRINGE 0 ML IV ONE (22:25)
--- NOTE | 2024-12-09 22:37 | CT Scan Report ---
Exam(s): CT ABDOMEN + PELVIS Without Contrast EXAM: CT Abdomen and Pelvis Without Intravenous Contrast CLINICAL HISTORY: Reason for exam: bilateral flank pain. TECHNIQUE: Axial computed tomography images of the abdomen and pelvis without intravenous contrast. CTDI is 28.14 mGy and DLP is 1387.25 mGy-cm. Automated exposure control was utilized for the study. A dose lowering technique was utilized adhering to the principles of ALARA. COMPARISON: January 16, 2024 FINDINGS: Lung bases: Mild fibrotic changes in the lung bases. No consolidation. ABDOMEN: Liver: The liver is mildly enlarged is a 19.2 cm. No focal liver mass lesion is seen. Gallbladder and bile ducts: Previous cholecystectomy. No biliary duct dilation or choledocholithiasis is seen. Pancreas: Unremarkable. No ductal dilation. Spleen: Unremarkable. No splenomegaly. Adrenals: Unremarkable. No mass. Kidneys and ureters: Unremarkable. No obstructing stones. No hydronephrosis. Stomach and bowel: There is a 5 cm right paracentral anterior abdominal wall hernia containing a short segment of colon. No signs of acute inflammation or obstruction. No mucosal thickening. PELVIS: Appendix: No findings to suggest acute appendicitis. Bladder: Unremarkable. No stones. Reproductive: Unremarkable as visualized. ABDOMEN and PELVIS: Intraperitoneal space: Bowel loops are nondilated. No pneumoperitoneum, free fluid, or acute inflammatory changes are seen involving the bowel. Bones/joints: Moderate multilevel degenerative changes throughout the spine. No acute fracture or subluxation. Soft tissues: See above. Vasculature: The abdominal aorta is severely calcified. There is no aneurysm. This is a noncontrast study. There is at least 40% stenosis due to calcified plaque. There is an IVC filter in standard position. Lymph nodes: Unremarkable. No enlarged lymph nodes. Tubes, lines and devices: There is a right-sided double-J ureteral stent in good position. There is moderate dilation of the right renal pelvis measuring 4.2 cm transverse, similar to previous. No surrounding edema is seen. IMPRESSION: 1. There is a 5 cm right paracentral anterior abdominal wall hernia containing a short segment of colon. No signs of acute inflammation or obstruction. 2. There is a right-sided double-J ureteral stent in good position. There is moderate dilation of the right renal pelvis measuring 4.2 cm transverse, similar to previous. No surrounding edema is seen. 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 Some component of stent dysfunction cannot be excluded. 3. Bowel loops are nondilated. No pneumoperitoneum, free fluid, or acute inflammatory changes are seen involving the bowel. Electronically signed by: Zia Duncan MD 12/09/24 22:37 PM
[2024-12-09] MEDS: KETOROLAC TROMETHAMINE 15 MG/ML VIAL IV ONE (22:51)
--- NOTE | 2024-12-09 23:19 | Urology Consultation ---
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 She has been managing with chronic stents. Tentative plan had been for stent exchange in approximately October,, however it appears that follow-up appointment to coordinate this was not made. She should likely undergo ureteral stent exchange, however this could be done after a couple days of antibiotics assuming she remains stable. Urology will follow along and tentatively plan for possible stent exchange later this week. Date of Consultation December 09, 2024 Assessment & Plan (1) Complicated urinary tract infection: Patient is being admitted on the hospitalist service. From a urologic perspective we recommend the following: By urinalysis appears of the patient has urinary tract infection She has been placed on antibiotics in form of daptomycin as well as Rocephin. Appropriate cultures have been sent and antibiotics be tailored based on these results Patient does have a history of chronic indwelling ureteral stent which was most recently placed in April 2024. As noted, Dr. Arriaga was considering stent exchange 6 months from the time of insertion. Will therefore make the patient n.p.o. after midnight tonight and to be reevaluated by our dayshift urology team to see if stent exchange would be advisable while she is in the hospital at this time At the present time patient is nontoxic-appearing. She is normotensive without tachycardia or fever. Additional recommendations with forthcoming based on her clinical course as unfolds History of Present Illness Reason for Consultation: Urinary tract infection with history of ureteral stent History of Present Illness This is a 69-year-old female who presented to the emergency department secondary to lower abdominal discomfort. Patient says for approximately 2 weeks she has been having lower abdominal/suprapubic discomfort with urinary frequency. She also notes some intermittent burning with urination and has noted some intermittent hematuria over the past 12 hours. She specifically denies any nausea or vomiting. She denies any fevers, shakes, or chills. She does note some slight right flank pain. Patient does have a longstanding history of ureteral stents (placed secondary to ureteropelvic junction obstruction and hydronephrosis). She most recently had a right ureteral stent exchanged on 04/26/[address] Arriaga. She was seen in follow-up by Dr. Arriaga on 06/15/2024 and [address] were in place for patient to have her stent exchanged approximately 6 months from the time that was inserted. The patient believes that she had an appointment with Dr. Arriaga scheduled for next week at which time they are going to discuss stent exchange. Since arrival to hospital she has had labs and imaging which independent reviewed. A CT scan of the abdomen pelvis showed the patient did have a right sided ureteral stent which appeared to be in good position. She did have some dilatation of the right renal pelvis but this appeared similar to what was noted on previous CT scans. Labs included CBC white blood cell count was 12.2. Hemoglobin, hematocrit, and platelet count were normal. Chemistry profile showed sodium and potassium were normal. BUN and creatinine were 33 and 1.9 (review of records show that creatinine over the past year has run in the range from 1.3-1.9). Her urinalysis today showed cloudy urine which was negative for nitrites. The specimen had 3+ leukocyte esterase, 2+ bacteria, and pyuria with greater than 50 white blood cells per high-power field. At the time of my interview the patient was resting comfortably in bed and she was in no distress. Allergies Allergy/AdvReac Type Severity Reaction Status Date / Time morphine Allergy Severe Swelling, Verified 12/09/24 22:49 "Violent reaction- almost " dapagliflozin [From Farxiga] Allergy Intermediate Yeast Verified 12/09/24 22:49 infections tetanus toxoid, adsorbed Allergy Intermediate Passed Verified 12/09/24 22:49 out, "got sick" as child bupropion [From Wellbutrin] AdvReac Intermediate Recurrent Verified 12/09/24 22:49 falls as per patient codeine AdvReac Intermediate Hallucinati Verified 12/09/24 22:49 ons empagliflozin AdvReac Intermediate Yeast Verified 12/09/24 22:49 [From Jardiance] infections heparin AdvReac Intermediate HIT, Verified 12/09/24 22:49 "Fluid in lungs" hydrocodone [From Vicodin] AdvReac Intermediate Drowsy Verified 12/09/24 22:49 Home Medications Medication Instructions Recorded Confirmed Type aspirin 81 mg tablet,delayed 81 mg PO QAM 09/20/23 12/09/24 History release clonazepam 0.5 mg tablet 0.5 mg PO TID 09/20/23 12/09/24 History furosemide 40 mg tablet 60 mg PO BID 09/20/23 12/09/24 History magnesium oxide 400 mg (241.3 mg 400 mg PO BID 09/20/23 12/09/24 History magnesium) tablet omeprazole 20 mg capsule,delayed 20 mg PO QAM 09/20/23 12/09/24 History release potassium chloride 20 mEq 20 meq PO BID 09/20/23 12/09/24 History tablet,extended release(part/cryst) ropinirole 2 mg tablet 2 mg PO HS 09/20/23 12/09/24 History sennosides 8.6 mg-docusate sodium 1 tab PO BID 09/20/23 12/09/24 History 50 mg tablet (Senna-Time S) tramadol 50 mg tablet 50 mg PO Q8 PRN Pain 09/20/23 12/09/24 History apixaban 2.5 mg tablet (Eliquis) 2.5 mg PO BID 10/24/23 12/09/24 History dicyclomine 20 mg tablet 20 mg PO QID PRN abdominal cramping 10/24/23 12/09/24 History levothyroxine 200 mcg tablet 200 mcg PO DAILYBB #30 tabs 12/07/23 12/09/24 Rx cholecalciferol (vitamin D3) 25 25 mcg PO QAM 01/16/24 12/09/24 History mcg (1,000 unit) tablet clopidogrel 75 mg tablet 75 mg PO QAM 01/16/24 12/09/24 History duloxetine 60 mg capsule,delayed 60 mg PO QAM 12/09/24 12/09/24 History release fluticasone propionate 50 2 spray intranasal AMHS 12/09/24 12/09/24 History mcg/actuation nasal spray,suspension gabapentin 300 mg capsule 300 mg PO AMHS 12/09/24 12/09/24 History insulin aspart U-100 100 unit/mL See Rx Instructions .Route .COMPLEX 12/09/24 12/09/24 History (3 mL) subcutaneous pen (Novolog FlexPen U-100 Insulin aspart) insulin degludec 100 unit/mL (3 41 unit subcut QPM 12/09/24 12/09/24 History mL) subcutaneous pen (Tresiba FlexTouch U-100 insulin) rosuvastatin 5 mg tablet 5 mg PO QAM 12/09/24 12/09/24 History tirzepatide 7.5 mg/0.5 mL 7.5 mg subcut WK 12/09/24 12/09/24 History subcutaneous pen injector (Kevan) tizanidine 4 mg tablet 4 mg PO Q6 PRN Muscle Spasm 12/09/24 12/09/24 History trazodone 50 mg tablet 50 mg PO HS 12/09/24 12/09/24 History Patient History Medical History Subclavian arterial stenosis (06/2023) Cerebrovascular duplex study 06/2023: Retrograde flow in the right vertebral artery. 50-69% proximal right subclavian artery stenosis. Antegrade flow in the left vertebral artery. Normal flow in the left subclavian artery. Hx of pulmonary edema Pickwickian syndrome Orthostasis Lumbago with sciatica Left knee DJD Hx of hydronephrosis Hyperlipemia Hypertension HIT (heparin-induced thrombocytopenia) (2008) hx - [facility] then life flight to [facility] > "resolved" Deep vein thrombosis (DVT) Recurrent per records On Eliquis Initially occurred during ICU [facility] admission, s/p zoraida filter [address] Right LE doppler 11/2023 showed no DVT within right LE Hepatosplenomegaly Hx of fracture radius Depression with anxiety Chronic diastolic (congestive) heart failure follos with Dr[facility] 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) VRE UTI during inpatient admit at [facility] Hx of Clostridium difficile infection (12/2023) during inpatient admit to [facility], treated, no current sx Hx of constipation Hx of vertigo occasional Hx: UTI (urinary tract infection) frequent Hx of fall (11/2023) last fall was November 2023 - no injuries Diabetes IDDM ELISSA on CPAP CPAP + 3L O2 (O2 is continuous) Hx of septic shock (12/2023) due to UTI - admit to [facility] Presence of IVC filter (2008) [facility], continues to be in place due to current clots behind right knee Hx pulmonary embolism (2008) s/p zoraida filter GERD (gastroesophageal reflux disease) RLS (restless legs syndrome) History of pneumonia (2008) x 8 weeks, [facility] then tx to [facility], "put me in a coma, flew me to [facility], had a trach then went to senior living with trach" Trach removed Sep 2009 Fibromyalgia Hypothyroidism Hx of pyelonephritis (12/2023) CKD (chronic kidney disease), stage III follows [facility] Nephrology Hx of congestive heart failure takes lasix, sees Dr. Jose C Garcia Chronic hypoxemic respiratory failure O2 3-4L at all times - sees Pulm @ [facility] - [facility] Transient hypotension Mitral valve stenosis Mild per cardio records (due to severe calcification) Echo 06/2023: Borderline mild mitral stenosis secondary to severe mitral annular calcification, follows [facility] cardio Dr. Woodall Cataract, bilateral Neuropathy feet On home oxygen therapy 3-4L continuous Surgical History History of colon resection (2008) secondary to R colon perforation, resected treated with colostomy and eventual reversal in 2008 Hx of tracheostomy (06/2009) (per [facility] records), secondary to acute respiratory failure in setting of PNA, reversed a few months later in 2009 Hx of cystoscopy (11/25/23) with stent placement right side due to infection History of transcarotid artery revascularization (TCAR) (08/2023) right, [facility] History of right knee joint replacement (Unknown) > 10 years Hx laparoscopic cholecystectomy Hx of thyroidectomy (2011) total Family history of reaction to anesthesia Brother/niece- PONV Brother- "wakes up violent" History of colostomy reversal (10/1997) History of tooth extraction History of arthroscopy (Unknown) left ankle , > 10 years History of incisional hernia repair Nausea and vomiting after administration of anesthetic agent History of colonoscopy Family History Father , age 74 Lung cancer Mother , age 45 Cirrhosis Social History Smoking Status: Former smoker Tobacco Type: Cigarettes Cigarettes Per Day: 1996; Second Hand Exposure: No; Do You Dip or Chew Tobacco: No; Hx Alcohol Use: No Hx Substance Use: No Preferred Language: Tamazight Communication Ability: Effective Elementary Secretary Required: No Beliefs That Will Affect Care: None marital status: Single Current Living Situation: Alone Current Living Situation Comment: Lives by self in apartment How many Children do You have: 0 Feels Safe at Home: Yes Assistive Devices: Cane, Glasses, Oxygen - at Night, Oxygen - Continuous, Scooter/Electric Scooter and Walker Review of Systems Review of Systems: All systems reviewed & are unremarkable except as noted in HPI & below Physical Exam Constitutional: WD/WN, vitals as above Eyes: no conjunctival abnormality ENMT: Ears: no hearing impairment and no external ear abnormality Mouth: no oropharynx abnormality Neck: trachea midline Respiratory: normal respiratory effort; no respiratory distress and no labored breathing Cardiovascular: Rate/Rhythm: regular rate Gastrointestinal (Abdomen): Abdomen is soft without distention or rigidity. There is no rebound tenderness, guarding, or pain with palpation Musculoskeletal: No calf tenderness Skin: no rashes Neurologic: moves all extremities Psychiatric: A+Ox3, euthymic affect Genitourinary: Slight CVA tenderness noted with percussion on the right-hand side, no tenderness on the left Results & Data Vital Signs (Past 12 Hours) Vital Signs Temp Pulse Pulse Resp BP BP Pulse Ox 12/09/24 22:18 91 H 14 166/91 H 97 12/09/24 21:00 91 H 18 133/79 96 12/09/24 19:33 93 H 12/09/24 19:25 36.9 C 96 H 20 102/64 94 O2 Del Method O2 Flow Rate 12/09/24 22:18 Room Air 12/09/24 21:00 Nasal Cannula 2 12/09/24 19:33 12/09/24 19:25 Nasal Cannula 2 PG Care Time/CCT Total # of Minutes Spent Total Time Spent with Patient: Total time spent is greater than 50% in coordination of care (as documented) at patient's floor/unit and/or counseling patient: Coding Level of Care Code 62124 INT INP/OBS CARE 3/75MIN Diagnoses Complicated urinary tract infection N39.0
--- NOTE | 2024-12-09 23:22 | History & Physical Report ---
Date of Service December 09, 2024 Assessment & Plan (1) Bilateral flank pain: Plan: 69-year-old female with past med history significant for type 2 diabetes, chronic hypoxemic respiratory failure on oxygen 2 L while resting and while sleeping and 4 L while ambulation, diabetic peripheral angiopathy, hyperlipidemia, postsurgical hypothyroidism, hyperparathyroidism secondary to renal disease, CKD stage III, interstitial lung disease, sleep apnea, morbid obesity, chronic heart failure with preserved ejection fraction, recurrent deep vein thrombus of both lower extremities, history of pulmonary embolism, status post IVC green filter, venous insufficiency, hypertension, CAD, carotid stenosis, GERD, iron deficiency, drug-induced constipation, hydronephrosis of right kidney, fibromyalgia, restless leg syndrome, osteoarthritis, heparin- induced thrombocytopenia, depression, anxiety, history of VRE presents with bilateral flank and lower abdominal pain and found to have UTI. Patient has history of recurrent UTI. In the past cultures grew Pseudomonas and VRE. Patient has history of possible UPJ obstruction status post right ureteral stent in November 26, 2023 and stent exchange in April 2024. She is due for again stent exchange. Follows with urology. Patient has urinary symptoms for last 2 weeks. Outpatient urinalysis was done couple of times and seemed okay. But she continues to have a lot of pain in the flank and and lower abdomen. Micturating a lot. Having chills. Nauseous. Not feeling well, so she came to the ER today. Denies any headache. No neck pain. Has back pain. No runny nose or sore throat. No cough. No chest pain. No shortness of breath. Currently hemodynamics are okay. Bilateral flank pain Acute UTI History of urosepsis and bacteremia in the past History of Pseudomonas and VRE in the past Has right UPJ junction obstruction status post stent placement CAT scan showing stent in good place and could not rule out some stent dysfunction. Patient also has a right abdominal wall hernia with no signs of inflammation or obstruction. Patient is also due for stent exchange Empirically started on cefepime and daptomycin Fluids Will follow cultures Urology consult for further recommendation Chronic hypoxemic respiratory failure History of interstitial lung disease On 2 L oxygen while resting and 4 L with ambulation and 2 L while sleeping Obstructive sleep apnea Currently not using CPAP On oxygen nightly Diabetes Long-acting insulin and sliding scale Pharmacy consulted Chronic diastolic CHF Continue home diuretics Monitor for volume overload as patient is on fluids History of recurrent DVTs History of PE On Eliquis Status post IVC filter ELSIE onCKD stage III Present creatinine 1.9 Baseline creatinine around 1.6 If worsening will hold Lasix We will follow labs Hypertension Diuretics We will monitor Restless leg syndrome On ropinirole Depression and anxiety On Klonopin, duloxetine and trazodone Hypothyroidism Synthyroid DVT prophylaxis On Eliquis Disposition Med/telemetry Full code History of Present Illness Chief Complaint: Acute UTI Primary Care Provider: Galdino Andujar DO 69-year-old female with past med history significant for type 2 diabetes, chronic hypoxemic respiratory failure on oxygen 2 L while resting and while sleeping and 4 L while ambulation, diabetic peripheral angiopathy, hyperlipidemia, postsurgical hypothyroidism, hyperparathyroidism secondary to renal disease, CKD stage III, interstitial lung disease, sleep apnea, morbid obesity, chronic heart failure with preserved ejection fraction, recurrent deep vein thrombus of both lower extremities, history of pulmonary embolism, status post IVC green filter, venous insufficiency, hypertension, CAD, carotid stenosis, GERD, iron deficiency, drug-induced constipation, hydronephrosis of right kidney, fibromyalgia, restless leg syndrome, osteoarthritis, heparin- induced thrombocytopenia, depression, anxiety, history of VRE presents with bilateral flank and lower abdominal pain and found to have UTI. Patient has history of recurrent UTI. In the past cultures grew Pseudomonas and VRE. Patient has history of possible UPJ obstruction status post right ureteral stent in November 26, 2023 and stent exchange in April 2024. She is due for again stent exchange. Follows with urology. Patient has urinary symptoms for last 2 weeks. Outpatient urinalysis was done couple of times and seemed okay. But she continues to have a lot of pain in the flank and and lower abdomen. Micturating a lot. Having chills. Nauseous. Not feeling well, so she came to the ER today. Denies any headache. No neck pain. Has back pain. No runny nose or sore throat. No cough. No chest pain. No shortness of breath. Currently hemodynamics are okay. Past medical history. As mentioned above Past surgical history. Right total knee arthroplasty. Colonoscopy. Injection of lumbosacral spine. Left knee arthroscopy. Thyroidectomy. Cholecystectomy. Repair of recurrent incisional hernia. Injection of sacroiliac joint. Suture large intestine with colostomy. Right carotid artery Transcath stent, vena cava filter. Social history. Quit smoking 1996. Smoked 1 pack a day for 15 years. Alcohol rarely. No drug use. Family history. Brother has COPD. Father had lung cancer. Mother had liver cancer. Allergies Allergy/AdvReac Type Severity Reaction Status Date / Time morphine Allergy Severe Swelling, Verified 12/09/24 22:49 "Violent reaction- almost " dapagliflozin [From Farxiga] Allergy Intermediate Yeast Verified 12/09/24 22:49 infections tetanus toxoid, adsorbed Allergy Intermediate Passed Verified 12/09/24 22:49 out, "got sick" as child bupropion [From Wellbutrin] AdvReac Intermediate Recurrent Verified 12/09/24 22:49 falls as per patient codeine AdvReac Intermediate Hallucinati Verified 12/09/24 22:49 ons empagliflozin AdvReac Intermediate Yeast Verified 12/09/24 22:49 [From Jardiance] infections heparin AdvReac Intermediate HIT, Verified 12/09/24 22:49 "Fluid in lungs" hydrocodone [From Vicodin] AdvReac Intermediate Drowsy Verified 12/09/24 22:49 Home Medications Medication Instructions Recorded Confirmed Type aspirin 81 mg tablet,delayed 81 mg PO QAM 09/20/23 12/09/24 History release clonazepam 0.5 mg tablet 0.5 mg PO TID 09/20/23 12/09/24 History furosemide 40 mg tablet 60 mg PO BID 09/20/23 12/09/24 History magnesium oxide 400 mg (241.3 mg 400 mg PO BID 09/20/23 12/09/24 History magnesium) tablet omeprazole 20 mg capsule,delayed 20 mg PO QAM 09/20/23 12/09/24 History release potassium chloride 20 mEq 20 meq PO BID 09/20/23 12/09/24 History tablet,extended release(part/cryst) ropinirole 2 mg tablet 2 mg PO HS 09/20/23 12/09/24 History sennosides 8.6 mg-docusate sodium 1 tab PO BID 09/20/23 12/09/24 History 50 mg tablet (Senna-Time S) tramadol 50 mg tablet 50 mg PO Q8 PRN Pain 09/20/23 12/09/24 History apixaban 2.5 mg tablet (Eliquis) 2.5 mg PO BID 10/24/23 12/09/24 History dicyclomine 20 mg tablet 20 mg PO QID PRN abdominal cramping 10/24/23 12/09/24 History levothyroxine 200 mcg tablet 200 mcg PO DAILYBB #30 tabs 12/07/23 12/09/24 Rx cholecalciferol (vitamin D3) 25 25 mcg PO QAM 01/16/24 12/09/24 History mcg (1,000 unit) tablet clopidogrel 75 mg tablet 75 mg PO QAM 01/16/24 12/09/24 History duloxetine 60 mg capsule,delayed 60 mg PO QAM 12/09/24 12/09/24 History release fluticasone propionate 50 2 spray intranasal AMHS 12/09/24 12/09/24 History mcg/actuation nasal spray,suspension gabapentin 300 mg capsule 300 mg PO AMHS 12/09/24 12/09/24 History insulin aspart U-100 100 unit/mL See Rx Instructions .Route .COMPLEX 12/09/24 12/09/24 History (3 mL) subcutaneous pen (Novolog FlexPen U-100 Insulin aspart) insulin degludec 100 unit/mL (3 41 unit subcut QPM 12/09/24 12/09/24 History mL) subcutaneous pen (Tresiba FlexTouch U-100 insulin) rosuvastatin 5 mg tablet 5 mg PO QAM 12/09/24 12/09/24 History tirzepatide 7.5 mg/0.5 mL 7.5 mg subcut WK 12/09/24 12/09/24 History subcutaneous pen injector (Jamarcusunjose martinro) tizanidine 4 mg tablet 4 mg PO Q6 PRN Muscle Spasm 12/09/24 12/09/24 History trazodone 50 mg tablet 50 mg PO HS 12/09/24 12/09/24 History Past Med/Surg History Problem List Bilateral flank pain (Acute) Acute kidney injury superimposed on chronic kidney disease (Acute) Leukocytosis (Acute) Complicated urinary tract infection (Acute) Ureteral stent retained Acute UTI (urinary tract infection) (Acute) Following with urology Arthralgia (Acute) Fatigue (Acute) UPJ obstruction, acquired Left knee DJD Ambulatory dysfunction Fall (Acute) Hematuria Hydronephrosis (Acute) Polypharmacy Hypoglycemia Chronic respiratory failure Urinary frequency (Acute) Lumbago with sciatica Lower extremity pain, bilateral Major depression, recurrent Sciatica (Acute) Non compliance w medication regimen Chronic diastolic heart failure Multiple falls Subclavian artery stenosis Cerebrovascular duplex study 06/2023: Retrograde flow in the right vertebral artery. 50-69% proximal right subclavian artery stenosis. Antegrade flow in the left vertebral artery. Normal flow in the left subclavian artery. Carotid stenosis, right Cerebrovascular duplex 07/11/23: 80-99% R ICA stenosis. No hemodynamically significant stenosis in the LICA. Left radial head fracture Obesity hypoventilation syndrome Pickwickian syndrome Generalized body aches Weakness (Acute) Orthostasis (Acute) Hip pain, right (Acute) Knee pain, right (Acute) Abdominal pain (Acute) Acute on chronic kidney failure (Acute) Per urology records Per records elevated creatinine stable since 12/2023 CKD (chronic kidney disease), stage III (Chronic) Follows with [facility] Hypomagnesemia (Acute) CHF (congestive heart failure) (Acute) Hepatosplenomegaly (Acute) ELISSA on CPAP (Chronic) CPAP + 3L O2 (O2 is continuous) HTN (hypertension) (Chronic) HLD (hyperlipidemia) (Chronic) Morbid obesity (Chronic) 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, [facility] then life flight to [place] > "resolved" Depression with anxiety (Chronic) Hypothyroidism (Chronic) History of pulmonary embolism (Chronic) 2008 s/p zoraida filter GERD (gastroesophageal reflux disease) (Chronic) RLS (restless legs syndrome) (Chronic) Presence of IVC filter (Chronic) 2008 Diabetes (Chronic) Fibromyalgia (Chronic) Medical History Subclavian arterial stenosis (06/2023) Cerebrovascular duplex study 06/2023: Retrograde flow in the right vertebral artery. 50-69% proximal right subclavian artery stenosis. Antegrade flow in the left vertebral artery. Normal flow in the left subclavian artery. Hx of pulmonary edema Pickwickian syndrome Orthostasis Lumbago with sciatica Left knee DJD Hx of hydronephrosis Hyperlipemia Hypertension HIT (heparin-induced thrombocytopenia) (2008) - [facility] then life flight to [place] > "resolved" Deep vein thrombosis (DVT) Recurrent per records On Eliquis Initially occurred during ICU [place] admission, s/p zoarida filter [address] Right LE doppler 11/2023 showed no DVT within right LE Hepatosplenomegaly Hx of fracture radius Depression with anxiety Chronic diastolic (congestive) heart failure follos with Dr. Woodall @ [facility] Hx of carotid artery stenosis surgery - R TCAR 09/09/23 Arthralgia Ambulatory dysfunction uses cane and electric scooter History of infection with vancomycin resistant Enterococcus (VRE) (12/2023) VRE UTI during inpatient admit at [facility] Hx of Clostridium difficile infection (12/2023) during inpatient admit to [facility], treated, no current sx Hx of constipation Hx of vertigo occasional Hx: UTI (urinary tract infection) frequent Hx of fall (11/2023) last fall was November 2023 - no injuries Diabetes IDDM ELISSA on CPAP CPAP + 3L O2 (O2 is continuous) Hx of septic shock (12/2023) due to UTI - admit to [facility] Presence of IVC filter (2008) [facility], continues to be in place due to current clots behind right knee Hx pulmonary embolism (2008) s/p zoraida filter GERD (gastroesophageal reflux disease) RLS (restless legs syndrome) History of pneumonia (2008) x 8 weeks, [facility] then tx to [facility], "put me in a coma, flew me to [facility], had a trach then went to prison with trach" Trach removed Sep 2009 Fibromyalgia Hypothyroidism Hx of pyelonephritis (12/2023) CKD (chronic kidney disease), stage III follows [facility] Nephrology Hx of congestive heart failure takes lasprabhu perez Dr. Chronic hypoxemic respiratory failure O2 3-4L at all times - sees Pulm @ [facility] Figueredo Transient hypotension Mitral valve stenosis Mild per cardio records (due to severe calcification) Echo 06/2023: Borderline mild mitral stenosis secondary to severe mitral annular calcification, follows [facility] cardio Dr. Woodall Cataract, bilateral Neuropathy feet On home oxygen therapy 3-4L continuous Surgical History History of colon resection (2008) secondary to R colon perforation, resected treated with colostomy and eventual reversal in 2008 Hx of tracheostomy (06/2009) (per [facility] records), secondary to acute respiratory failure in setting of PNA, reversed a few months later in 2009 Hx of cystoscopy (11/25/23) with stent placement right side due to infection History of transcarotid artery revascularization (TCAR) (08/2023) right, [facility] History of right knee joint replacement (Unknown) > 10 years Hx laparoscopic cholecystectomy Hx of thyroidectomy (2011) total Family history of reaction to anesthesia Brother/niece- PONV Brother- "wakes up violent" History of colostomy reversal (10/1997) History of tooth extraction History of arthroscopy (Unknown) left ankle , > 10 years History of incisional hernia repair Nausea and vomiting after administration of anesthetic agent History of colonoscopy Family History Father , age 74 Lung cancer Mother , age 45 Cirrhosis Social History Smoking Status: Never smoker Tobacco Type: Cigarettes Cigarettes Per Day: 1996; Second Hand Exposure: No; Do You Dip or Chew Tobacco: No; Hx Alcohol Use: No Hx Substance Use: No Preferred Language: Italian Communication Ability: Effective [employer] Pcb Designer Required: No Beliefs That Will Affect Care: None marital status: Single Current Living Situation: Alone Current Living Situation Comment: Lives by self in apartment How many Children do You have: 0 Feels Safe at Home: Yes Safety Concerns: Feels Safe At This Time Assistive Devices: CPAP and Oxygen - Continuous Review of Systems Review of Systems: All systems reviewed & are unremarkable except as noted in HPI & below Physical Exam Physical Exam: General- Not in acute distress Head- atraumatic Eyes- PERRL ENT- oropharynx clear Neck- supple, no JVD. Lungs- clear to auscultation no wheezing or crackles Heart- regular rhythm; no murmur, no gallop. Abdomen- normal bowel sounds, soft, tenderness in lower abdomen, no distension Extremities- no pretibial edema, no erythema seen Neuro- alert, oriented PERRL, no facial palsy; no dysarthria; moves extremities Results & Data Results & Data Vital Signs (Past 12 Hours) Vital Signs Temp Pulse Pulse Resp BP BP Pulse Ox 12/09/24 22:18 91 H 14 166/91 H 97 12/09/24 21:00 91 H 18 133/79 96 12/09/24 19:33 93 H 12/09/24 19: 36.9 C 96 H 20 102/64 94 O2 Del Method O2 Flow Rate 12/09/24 22:18 Room Air 12/09/24 21:00 Nasal Cannula 2 12/09/24 19:33 12/09/24 19:25 Nasal Cannula 2 Diagnostic Findings Laboratory Results WBC 12.28 K/ul (4.8-10.8) H 12/09/24 19: RBC 4.15 M/uL (4.20-5.40) L 12/09/24 19:32 Hgb 12.0 g/dl (12.0-16.0) 12/09/24 19: Hct 38.5 % (37.0-47.0) 12/09/24 19: MCV 92.8 fL (80.0-100.0) 12/09/24 19: MCH 28.9 pg (25.0-34.0) 12/09/24: MCHC 31.2 g/dL (32.0-36.0) L 12/09/24 19: RDW Std Deviation 46.5 fL (36.4-46.3) H 12/09/24 19: RDW Coeff of Adolfo 13.6 % (11.5-14.5) 12/09/24 19: Plt Count 351 K/uL (130-400) 12/09/24 19:32 MPV 9.5 fL (9.4-12.4) 12/09/24 19:32 Immature Gran % (Auto) 0.7 % 12/09/24 19:32 Neut % (Auto) 73.3 % 12/09/24 19:32 Lymph % (Auto) 16.9 % 12/09/24 19:32 [place] % (Auto) 5.9 % 12/09/24 19:32 Eos % (Auto) 2.7 % 12/09/24 19:32 Baso % (Auto) 0.5 % 12/09/24 19:32 Neut # (Auto) 9.01 K/uL (1.40-6.50) H 12/09/24 19:32 Lymph # (Auto) 2.07 K/uL (1.20-3.40) 12/09/24 19:32 [place] # (Auto) 0.72 K/uL (0.11-0.59) H 12/09/24 19:32 Eos # (Auto) 0.33 K/uL (0.00-0.50) 12/09/24 19:32 Baso # (Auto) 0.06 K/uL (0.00-0.20) 12/09/24 19:32 Immature Gran # (Auto) 0.09 K/uL (0.01-0.20) 12/09/24 19:32 Sodium 138 mmol/L (136-145) 12/09/24 19:32 Potassium 3.8 mmol/L (3.5-5.1) 12/09/24 19:32 Chloride 95 mmol/L (98-107) L 12/09/24 19:32 Carbon Dioxide 36 mmol/L (21-32) H 12/09/24 19:32 Anion Gap 7 (3-11) 12/09/24 19:32 BUN 33 mg/dl (6-23) H 12/09/24 19:32 Creatinine 1.98 mg/dl (0.6-1.2) H 12/09/24 19:32 Est Cr Clr Drug Dosing 36.4 ml/min 12/09/24 19:32 eGFR 26.87 12/09/24 19:32 BUN/Creatinine Ratio 16.7 (10-20) 12/09/24 19:32 Glucose 159 mg/dl (70-99(Fasting)) H 12/09/24 19:32 POC Glucose 99 mg/dl (70-99) 12/10/24 05:27 Lactate 1.4 mmol/L (0.4-2.0) 12/09/24 19:32 Calcium 9.3 mg/dl (8.6-10.3) 12/09/24 19:32 Total Bilirubin 0.3 mg/dl (0.2-1.0) 12/09/24 19:32 AST 11 U/L (13-39) L 12/09/24 19:32 ALT 6 U/L (7-52) L 12/09/24 19:32 Alkaline Phosphatase 104 U/L (34-104) 12/09/24 19:32 Total Protein 7.7 gm/dl (6.0-8.3) 12/09/24 19:32 Albumin 3.9 gm/dl (3.4-5.0) 12/09/24 19: Globulin 3.8 gm/dl (2.5-4.0) 12/09/24 19: Albumin/Globulin Ratio 1.0 (0.9-2) 12/09/24 19: Lipase 15 U/L (11-82) 12/09/24 19: Procalcitonin 0.03 ng/ml (0-0.5) 12/09/24: Urine Color Yellow 12/09/24: Urine Appearance Cloudy (Clear) A 12/09/24: Urine pH 8.0 (4.5-7.5) H 12/09/24: Ur Specific [place] 1.008 (1.000-1.030) 12/09/24: Urine Protein 1+ (Negative) H 12/09/24: Urine Glucose (UA) Negative (Negative) 12/09/24: Urine Ketones Negative (Negative) 12/09/24: Urine Blood 3+ (Negative) H 12/09/24: Urine Nitrite Negative (Negative) 12/09/24: Urine Bilirubin Negative (Negative) 12/09/24: Urine Urobilinogen Negative (Negative) 12/09/24: Ur Leukocyte Esterase 3+ (Negative) H 12/09/24 19:32 Urine WBC (Auto) >50 /hpf (0-5) H 12/09/24 19:32 Urine RBC (Auto) >20 /hpf (0-2) H 12/09/24: U Hyaline Cast (Auto) 3-5 /lpf (0-2) H 12/09/24 19:32 U Epithel Cells (Auto) 0-2 /hpf (0-2) 12/09/24: Urine Bacteria (Auto) 2+ (None Seen) H 12/09/24 19: Impressions Abdomen/Pelvis CT 12/09/24 20:32 Exam(s): CT ABDOMEN + PELVIS Without Contrast EXAM: CT Abdomen and Pelvis Without Intravenous Contrast CLINICAL HISTORY: Reason for exam: bilateral flank pain. TECHNIQUE: Axial computed tomography images of the abdomen and pelvis without intravenous contrast. CTDI is 28.14 mGy and DLP is 1387.25 mGy-cm. Automated exposure control was utilized for the study. A dose lowering technique was utilized adhering to the principles of ALARA. COMPARISON: January 16, 2024 FINDINGS: Lung bases: Mild fibrotic changes in the lung bases. No consolidation. ABDOMEN: Liver: The liver is mildly enlarged is a 19.2 cm. No focal liver mass lesion is seen. Gallbladder and bile ducts: Previous cholecystectomy. No biliary duct dilation or choledocholithiasis is seen. Pancreas: Unremarkable. No ductal dilation. Spleen: Unremarkable. No splenomegaly. Adrenals: Unremarkable. No mass. Kidneys and ureters: Unremarkable. No obstructing stones. No hydronephrosis. Stomach and bowel: There is a 5 cm right paracentral anterior abdominal wall hernia containing a short segment of colon. No signs of acute inflammation or obstruction. No mucosal thickening. PELVIS: Appendix: No findings to suggest acute appendicitis. Bladder: Unremarkable. No stones. Reproductive: Unremarkable as visualized. ABDOMEN and PELVIS: Intraperitoneal space: Bowel loops are nondilated. No pneumoperitoneum, free fluid, or acute inflammatory changes are seen involving the bowel. Bones/joints: Moderate multilevel degenerative changes throughout the spine. No acute fracture or subluxation. Soft tissues: See above. Vasculature: The abdominal aorta is severely calcified. There is no aneurysm. This is a noncontrast study. There is at least 40% stenosis due to calcified plaque. There is an IVC filter in standard position. Lymph nodes: Unremarkable. No enlarged lymph nodes. Tubes, lines and devices: There is a right-sided double-J ureteral stent in good position. There is moderate dilation of the right renal pelvis measuring 4.2 cm transverse, similar to previous. No surrounding edema is seen. IMPRESSION: 1. There is a 5 cm right paracentral anterior abdominal wall hernia containing a short segment of colon. No signs of acute inflammation or obstruction. 2. There is a right-sided double-J ureteral stent in good position. There is moderate dilation of the right renal pelvis measuring 4.2 cm transverse, similar to previous. No surrounding edema is seen. 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 Some component of stent dysfunction cannot be excluded. 3. Bowel loops are nondilated. No pneumoperitoneum, free fluid, or acute inflammatory changes are seen involving the bowel. Electronically signed by: Zia Duncan MD 12/09/24 22:37 PM Code Status & VTE Plan VTE Prophylaxis Plan VTE Prophylaxis will be ordered: Yes
[2024-12-10] MEDS ORDERED: PHARMACY GLYCEMIC MGMT CONSULT PRN (00:35)
[2024-12-10] MEDS ORDERED: GLUCAGON FOR INJ 1 MG VIAL SQ PRN (00:35)
[2024-12-10] MEDS ORDERED: GLUCOSE 40% GEL 15 GM TUBE PO PRN (00:35)
[2024-12-10] MEDS ORDERED: NITROGLYCERIN SL 0.4 MG/TAB TAB SL PRN (00:35)
[2024-12-10] MEDS ORDERED: DEXTROSE 50% 50 ML SYRINGE IV PRN (00:35)
[2024-12-10] MEDS ORDERED: GLUCOSE 10 TAB/TUBE PO PRN (00:35)
[2024-12-10] MEDS ORDERED: CARBOHYDRATES FOR HYPOGLYCEMIA PO PRN (00:35)
[2024-12-10] MEDS: INSULIN ASPART PER UNIT CHARGE SC SCH ×2 (01:24→21:56)
[2024-12-10] MEDS: traMADol HCL 50 MG TABLET PO PRN (01:40)
[2024-12-10] MEDS: CEFEPIME 2000MG 2,000 MG/20 ML SYR IV SCH (01:41)
[2024-12-10] MEDS: SODIUM CHLORIDE 0.9% 1,000 ML IV SCH (01:43)
[2024-12-10] MEDS: oxyCODONE HCL IR 5 MG TAB (IMMEDIATE RELEASE) PO STA (03:46)
[2024-12-10] MEDS: tiZANidine HCL 4 MG TABLET PO PRN (05:23)
[2024-12-10 07:35] LABS: Basophils # (auto) 0.05 K/uL (0.00-0.20); Basophils % (auto) 0.4 %; Eosinophils # (auto) 0.39 K/uL (0.00-0.50); Eosinophils % (auto) 3.4 %; Hematocrit (blood only) 36.3 % (37.0-47.0); Hemoglobin 11.3 g/dl (12.0-16.0); Immature Granulocytes # (auto) 0.06 K/uL (0.01-0.20); Immature Granulocytes % (auto) 0.5 %; Lymphocytes # (auto) 1.91 K/uL (1.20-3.40); Lymphocytes % (auto) 16.8 %; Mean Corpuscular Hemoglobin 29.1 pg (25.0-34.0); Mean Corpuscular Hgb Conc 31.1 g/dL (32.0-36.0); Mean Corpuscular Volume 93.6 fL (80.0-100.0); Mean Platelet Volume 9.5 fL (9.4-12.4); Monocytes # (auto) 0.67 K/uL (0.11-0.59); Monocytes % (auto) 5.9 %; Platelet Count 299 K/uL (130-400); RDW Coefficient of Variation 13.6 % (11.5-14.5); RDW Standard Deviation 46.4 fL (36.4-46.3); Red Blood Count 3.88 M/uL (4.20-5.40); White Blood Count 11.38 K/ul (4.8-10.8)
[2024-12-10 07:47] LABS: BUN Creatinine Ratio 15.6 (10-20); Calcium 8.8 mg/dl (8.6-10.3); Creatinine Clr Calc Pharmacy 40.1 ml/min; Magnesium 1.9 mg/dl (1.7-2.4); Potassium 3.5 mmol/L (3.5-5.1)
[2024-12-10] MEDS: LEVOTHYROXINE SODIUM 200 MCG TABLET PO SCH (07:59)
[2024-12-10] MEDS: CHOLECALCIFEROL 25 MCG (1000 UNITS) TAB PO SCH (09:13)
[2024-12-10] MEDS: MAGNESIUM OXIDE 400 MG TAB PO SCH (09:13)
[2024-12-10] MEDS: CLOPIDOGREL BISULFATE 75 MG TAB PO SCH (09:14)
[2024-12-10] MEDS: POTASSIUM CHLORIDE CRTAB 20 MEQ TABCR PO SCH (09:14)
[2024-12-10] MEDS: clonazePAM 0.5 MG TAB PO SCH (09:14)
[2024-12-10] MEDS: ASPIRIN 81 MG ECTAB PO SCH (09:14)
[2024-12-10] MEDS: DOCUSATE SODIUM/SENNA 50/8.6MG TAB PO SCH (09:14)
[2024-12-10] MEDS: DULoxetine HCL 60 MG CAP PO SCH (09:14)
[2024-12-10] MEDS: APIXABAN 2.5 MG TAB PO SCH (09:14)
[2024-12-10] MEDS: GABAPENTIN 300 MG CAP PO SCH (09:14)
[2024-12-10] MEDS: FUROSEMIDE 20 MG TAB PO SCH (09:14)
[2024-12-10] MEDS: PANTOprazole 40 MG TAB PO SCH (09:14)
[2024-12-10] MEDS: ACETAMINOPHEN 1,000 MG/100 ML VIAL IV PRN (09:15)
[2024-12-10] MEDS: FLUTICASONE PROPIONATE NA SPR 16 GM BTL SCH (09:15)
--- NOTE | 2024-12-10 09:34 | Ultrasound Report ---
BILATERAL LOWER EXTREMITY VENOUS DOPPLER HISTORY: b/l lower ext edema. dvt? COMPARISON STUDY: 03/02/2019 FINDINGS: No evidence of DVT seen in bilateral lower extremities. IMPRESSION: No DVT seen. ACT 112: Negative or not required by law. Electronically signed by: Isai Westbrook M.D. 12/10/2024 9:32 AM
--- NOTE | 2024-12-10 10:42 | Hospitalist Progress Note ---
Date of Service December 10, 2024 Assessment & Plan (1) Bilateral flank pain: (2) Acute UTI (urinary tract infection): Plan 69 year old female with PMH significant for DMII, HTN, HLD, CKD stage III, chronic hypoxemic respiratory failure on home O2, interstitial lung disease, diastolic CHF, history of PE s/p IVC green filter, recurrent DVTs on Eliquis, venous insufficiency, postsurgical hypothyroidism, hyperparathyroidism, heparin induced thrombocytopenia, depression, anxiety, GERD, fibromyalgia, RLS, and recurrent UTIs who presented to the ED on 12/09 with bilateral flank and lower abdominal pain found to have a UTI. Bilateral flank pain Acute UTI Patient is s/p right ureteral stent in November 2023 that was exchanged in April 2024. Urology consulted. History of urosepsis, bacteremia, pseudomonas, VRE in the past. Continue IV cefepime and daptomycin. Blood and urine cultures pending. Pain management with tramadol q8hr PRN. Chronic hypoxemic respiratory failure Chronic, stable. On 2L NC while resting and 4L NC while ambulating per baseline. DMII Chronic, stable. Long-acting insulin and sliding scale. Hgb A1C pending. HTN Chronic, stable. Continue lasix. Monitor labs. HLD Chronic, stable. Continue aspirin. Chronic diastolic CHF Chronic, stable. Continue lasix. Monitor labs. Follows with Cardiology. History of PE, recurrent DVTs Doppler negative for DVT. Continue Eliquis and Plavix. CKD stage III BUN 28 and creatinine 1.79 this morning. Baseline creatinine around 1.6. Monitor labs. Fibromyalgia Continue duloxetine and gabapentin. Depression, anxiety Continue clonazepam and trazodone. RLS Continue ropinirole. Hypothyroidism Continue levothyroxine. DVT Prophylaxis: on Eliquis and Plavix. Code Status: FULL CODE PCP: Dr. Galdino Andujar, Disposition: Not medically cleared for discharge. Awaiting urology recommendations for stent management. Patient seen in collaboration with Dr. Pandey. Please see addendum. I spent a total of 50 minutes coordinating, documenting and providing care for this patient excluding time spent in the performance of separately billed services or time spent by another provider/QHP. Admission and Anticipated Discharge Date Admission Date: December 09, 2024 Subjective Stephanie reports she is not doing well this morning. She is tearful and complaining of 8.5/10 right sided flank and back pain, generalized abdominal pain, and chills. She reports urinary frequency and slight dysuria. She denies chest pain, SOB, N/V/D. She states she was OOB to her chair this morning. She is currently NPO. Review of Systems Review of Systems: All systems reviewed & are unremarkable except as noted in HPI & below Physical Exam Physical Exam: VITALS: Reviewed and VSS. On 2L NC per baseline. GEN: Ill appearing, obese female. Tearful. PSYCH: Good Judgment. AOx3. Normal memory, mood, and affect. HEENT: Head NC/AT. Sclera white and conjunctiva pink. Nares without rhinorrhea. Nasal and oral mucosa pink. NECK: Supple, with no masses. CV: RRR, no m/r/g. LUNGS: CTAB, no w/r/c. ABD: Soft, ND, NBS, no masses or organomegaly. Generalized abdominal pain in all quadrants on palpation. Right flank and back pain on palpation. SKIN: Warm, well perfused. No skin rashes or abnormal lesions. MSK: No deformities, Normal gait. EXT: No clubbing, cyanosis, or edema. NEURO: Ambulating to chair with assistance. No focal deficits. Results & Data Results & Data Vital Signs (Past 12 Hours) Vital Signs Pulse Pulse Pulse Resp BP Pulse Ox O2 Del Method 12/10/24 09:31 85 85 20 125/68 94 Nasal Cannula 12/10/24 09:23 Nasal Cannula 12/10/24 05:00 86 18 152/68 H 99 Nasal Cannula 12/10/24 04:02 88 18 100 Nasal Cannula 12/10/24 03:00 87 18 153/71 H 94 Nasal Cannula 12/10/24 01:06 90 18 127/76 97 Nasal Cannula 12/10/24 00:07 92 H 18 136/56 L 96 Nasal Cannula 12/09/24 23:20 89 12/09/24 23:20 81 18 170/71 H 96 Room Air 12/09/24 22:18 91 H 14 166/91 H 97 Room Air O2 Flow Rate 12/10/24 09:31 2 12/10/24 09:23 12/10/24 05:00 3 12/10/24 04:02 3 12/10/24 03:00 3 12/10/24 01:06 3 12/10/24 00:07 3 12/09/24 23:20 12/09/24 23:20 12/09/24 22:18 Laboratory Results Short CBC 12/09/24 12/10/24 Range/Units 19:32 06:42 WBC 12.28 H 11.38 H (4.8-10.8) K/ul Hgb 12.0 11.3 L (12.0-16.0) g/dl Hct 38.5 36.3 L (37.0-47.0) % Plt Count 351 299 (130-400) K/uL BMP 12/09/24 12/10/24 19:32 06:42 Sodium 138 143 Potassium 3.8 3.5 Chloride 95 L 102 Carbon Dioxide 36 H 35 H BUN 33 H 28 H Creatinine 1.98 H 1.79 H Glucose 159 H 96 Calcium 9.3 8.8 Liver Function 12/09/24 Range/Units 19:32 Total Bilirubin 0.3 (0.2-1.0) mg/dl AST 11 L (13-39) U/L ALT 6 L (7-52) U/L Alkaline Phosphatase 104 (34-104) U/L Albumin 3.9 (3.4-5.0) gm/dl Urine 12/09/24 Range/Units 19:32 Urine Color Yellow Urine Appearance Cloudy A (Clear) Urine pH 8.0 H (4.5-7.5) Ur Specific [place] 1.008 (1.000-1.030) Urine Protein 1+ H (Negative) Urine Glucose (UA) Negative (Negative) I have independently reviewed and interpreted patient's labs including CBC, ,CMP, and UA. Diagnostic Findings Abdomen/Pelvis CT 12/09/24 20:32 Exam(s): CT ABDOMEN + PELVIS Without Contrast EXAM: CT Abdomen and Pelvis Without Intravenous Contrast CLINICAL HISTORY: Reason for exam: bilateral flank pain. TECHNIQUE: Axial computed tomography images of the abdomen and pelvis without intravenous contrast. CTDI is 28.14 mGy and DLP is 1387.25 mGy-cm. Automated exposure control was utilized for the study. A dose lowering technique was utilized adhering to the principles of ALARA. COMPARISON: January 16, 2024 FINDINGS: Lung bases: Mild fibrotic changes in the lung bases. No consolidation. ABDOMEN: Liver: The liver is mildly enlarged is a 19.2 cm. No focal liver mass lesion is seen. Gallbladder and bile ducts: Previous cholecystectomy. No biliary duct dilation or choledocholithiasis is seen. Pancreas: Unremarkable. No ductal dilation. Spleen: Unremarkable. No splenomegaly. Adrenals: Unremarkable. No mass. Kidneys and ureters: Unremarkable. No obstructing stones. No hydronephrosis. Stomach and bowel: There is a 5 cm right paracentral anterior abdominal wall hernia containing a short segment of colon. No signs of acute inflammation or obstruction. No mucosal thickening. PELVIS: Appendix: No findings to suggest acute appendicitis. Bladder: Unremarkable. No stones. Reproductive: Unremarkable as visualized. ABDOMEN and PELVIS: Intraperitoneal space: Bowel loops are nondilated. No pneumoperitoneum, free fluid, or acute inflammatory changes are seen involving the bowel. Bones/joints: Moderate multilevel degenerative changes throughout the spine. No acute fracture or subluxation. Soft tissues: See above. Vasculature: The abdominal aorta is severely calcified. There is no aneurysm. This is a noncontrast study. There is at least 40% stenosis due to calcified plaque. There is an IVC filter in standard position. Lymph nodes: Unremarkable. No enlarged lymph nodes. Tubes, lines and devices: There is a right-sided double-J ureteral stent in good position. There is moderate dilation of the right renal pelvis measuring 4.2 cm transverse, similar to previous. No surrounding edema is seen. IMPRESSION: 1. There is a 5 cm right paracentral anterior abdominal wall hernia containing a short segment of colon. No signs of acute inflammation or obstruction. 2. There is a right-sided double-J ureteral stent in good position. There is moderate dilation of the right renal pelvis measuring 4.2 cm transverse, similar to previous. No surrounding edema is seen. 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 Some component of stent dysfunction cannot be excluded. 3. Bowel loops are nondilated. No pneumoperitoneum, free fluid, or acute inflammatory changes are seen involving the bowel. Electronically signed by: Zia Duncan MD 12/09/24 22:37 PM Venous Doppler Study 12/10/24 00:35 BILATERAL LOWER EXTREMITY VENOUS DOPPLER HISTORY: b/l lower ext edema. dvt? COMPARISON STUDY: 03/02/2019 FINDINGS: No evidence of DVT seen in bilateral lower extremities. IMPRESSION: No DVT seen. ACT 112: Negative or not required by law. Electronically signed by: Isai Westbrook M.D. 12/10/2024 9:32 AM Medications Administered Current Inpatient Medications Apixaban (Apixaban 2.5 Mg Tab) 2.5 mg PO BID [facility] Stop: 01/09/25 08:59 Last Admin: 12/10/24 09:14 Dose: 2.5 mg Aspirin (Aspirin 81 Mg Ectab) 81 mg PO QAM [facility] Stop: 01/09/25 08:59 Last Admin: 12/10/24 09:14 Dose: 81 mg Clonazepam (Clonazepam 0.5 Mg Tab) 0.5 mg PO TID [facility] Stop: 01/09/25 08:59 Last Admin: 12/10/24 09:14 Dose: 0.5 mg Clopidogrel Bisulfate (Clopidogrel Bisulfate 75 Mg Tab) 75 mg PO QAM [facility] Stop: 01/09/25 08:59 Last Admin: 12/10/24 09:14 Dose: 75 mg Dextrose (Dextrose 50% 50 Ml Syringe) 25 - 50 ml IV UD PRN; Protocol PRN Reason: Hypoglycemia Protocol Stop: 01/09/25 00:34 Dicyclomine HCl (Dicyclomine Hcl 20 Mg Tab) 20 mg PO QID PRN PRN Reason: abdominal cramping Stop: 01/09/25 00:34 Duloxetine HCl (Duloxetine Hcl 60 Mg Cap) 60 mg PO QAM [facility] Stop: 01/09/25 08:59 Last Admin: 12/10/24 09:14 Dose: 60 mg Fluticasone Propionate (Fluticasone Propionate Na Spr 16 Gm Btl) 2 sprays NA [facility] Stop: 01/09/25 08:59 Last Admin: 12/10/24 09:15 Dose: 2 sprays Furosemide (Furosemide 20 Mg Tab) 60 mg PO BID17 [facility] Stop: 01/09/25 08:59 Last Admin: 12/10/24 09:14 Dose: 60 mg Gabapentin (Gabapentin 300 Mg Cap) 300 mg PO [facility]HS [facility] Stop: 01/09/25 08:59 Last Admin: 12/10/24 09:14 Dose: 300 mg Glucagon (Glucagon For Inj 1 Mg Vial) 1 mg SQ UD PRN; Protocol PRN Reason: Hypoglycemia Protocol Stop: 01/09/25 00:34 Glucose (Glucose 40% Gel 15 Gm Tube) 15 - 30 gm PO UD PRN; Protocol PRN Reason: Hypoglycemia Protocol Stop: 01/09/25 00:34 Glucose (Glucose 10 Tab/Tube) 4 - 8 tab PO UD PRN; Protocol PRN Reason: Hypoglycemia Protocol Stop: 01/09/25 00:34 Sodium Chloride (Nss) 1,000 mls @ 75 mls/hr IV .[id number] [facility] Stop: 12/11/24 00:34 Last Admin: 12/10/24 01:43 Dose: 75 mls/hr Acetaminophen (Ofirmev) 1,000 mg in 100 mls @ 400 mls/hr IV Q8H PRN PRN Reason: Pain or Fever Stop: 12/13/24 00:34 Last Infusion: 12/10/24 09:54 Dose: Infused Cefepime HCl (Maxipime 2000mg) 2,000 mg in 20 mls @ 5 mls/min IV Q12H [facility]; Protocol Stop: 12/20/24 01:59 Last Admin: 12/10/24 01:41 Dose: 5 mls/min Daptomycin 850 mg/ Syringe 17 mls @ 8.5 mls/min IV Q24H [facility]; Protocol Stop: 12/20/24 21:59 Insulin Aspart (Insulin Aspart Per Unit Charge) 0 units SC Q6 [facility] Stop: 01/09/25 01:29 Last Admin: 12/10/24 05:45 Dose: Not Given Insulin Glargine (Lantus Per Unit Charge) 10 units SQ HS [facility] Stop: 01/09/25 20:59 Levothyroxine Sodium (Levothyroxine Sodium 200 Mcg Tablet) 200 mcg PO DAILYBB [facility] Stop: 01/09/25 06:29 Last Admin: 12/10/24 07:59 Dose: 200 mcg Magnesium Oxide (Magnesium Oxide 400 Mg Tab) 400 mg PO BID [facility] Stop: 01/09/25 08:59 Last Admin: 12/10/24 09:13 Dose: 400 mg Miscellaneous (Carbohydrates For Hypoglycemia ) 15 - 30 gm PO UD PRN PRN Reason: Hypoglycemia Protocol Stop: 01/09/25 00:34 Miscellaneous Information (Pharmacy Glycemic Mgmt Consult) 1 each N/A UD PRN PRN Reason: Consult Stop: 01/09/25 00:34 Nitroglycerin (Nitroglycerin Sl 0.4 Mg/Tab Tab) 0.4 mg SL Q5M PRN PRN Reason: Chest Pain Stop: 01/09/25 00:34 Ondansetron HCl (Ondansetron Inj 2 Mg/Ml 2 Ml Vial) 4 mg IV Q6H PRN PRN Reason: Nausea Stop: 01/09/25 00:34 Pantoprazole Sodium (Pantoprazole 40 Mg Tab) 40 mg PO QAM [facility] Stop: 01/09/25 08:59 Last Admin: 12/10/24 09:14 Dose: 40 mg Polyethylene Glycol (Polyethylene (Miralax) 17 Gm Pack) 17 gm PO DAILY PRN PRN Reason: Constipation Stop: 01/09/25 00:34 Potassium Chloride (Potassium Chloride Crtab 20 Meq Tabcr) 20 meq PO BID [facility] Stop: 01/09/25 08:59 Last Admin: 12/10/24 09:14 Dose: 20 meq Ropinirole HCl (Ropinirole Hcl 2 Mg Tablet) 2 mg PO HS [facility] Stop: 01/09/25 20:59 Senna/Docusate Sodium (Docusate Sodium/Senna 50/8.6mg Tab) 1 tab PO BID [facility] Stop: 01/09/25 08:59 Last Admin: 12/10/24 09:14 Dose: 1 tab Tizanidine HCl (Tizanidine Hcl 4 Mg Tablet) 4 mg PO Q6 PRN PRN Reason: Muscle Spasm Stop: 01/09/25 00:34 Last Admin: 12/10/24 05:23 Dose: 4 mg Tramadol HCl (Tramadol Hcl 50 Mg Tablet) 50 mg PO Q8 PRN PRN Reason: Pain Stop: 01/09/25 00:34 Last Admin: 12/10/24 09:51 Dose: 50 mg Trazodone HCl (Trazodone Hcl 50 Mg Tab) 50 mg PO HS [facility] Stop: 01/09/25 20:59 Vitamin D (Cholecalciferol 25 Mcg (1000 Units) Tab) 25 mcg PO DAILY [facility] Stop: 01/09/25 08:59 Last Admin: 12/10/24 09:13 Dose: 25 mcg
--- NOTE | 2024-12-10 10:53 | Urology Progress Note ---
Date of Service December 10, 2024 Assessment & Plan (1) Complicated urinary tract infection: (2) Ureteral stent retained: (3) Hydronephrosis: Plan: 69 yo/F with history of right hydronephrosis managed with right ureteral stent exchanges (last exchanged 04/26/24) admitted for complicated UTI. Patient is afebrile and hemodynamically stable Labs today reviewedcreatinine 1.79, WBC 11.38 Urine and blood cultures are pendingfollow C/S Continue with broad-spectrum antibiotics and narrow per sensitivity data when available Right ureteral stent is in appropriate position on CT Ureteral stent due to be exchanged, last exchanged on 04/26/24 Recommend continue with antibiotics for now No acute intervention planned today, okay for diet today Consider stent exchange while inpatient after a few days of antibiotics, possibly on 12/13 will follow Admission and Anticipated Discharge Date Admission Date: December 09, 2024 Subjective Patient seen and examined in the emergency department this morning. She is resting in bed, arouses easily to her name. Reports intermittent right flank discomfort, urinary discomfort and frequency. Denies fever or chills at present. Review of Systems Constitutional: as per Subjective / HPI Genitourinary: as per Subjective / HPI Physical Exam Constitutional: + obese; no acute distress Respiratory: no respiratory distress and no labored breathing supplemental oxygen in place Gastrointestinal (Abdomen): Inspection/Auscultation: abdomen normal to inspection Musculoskeletal: Head/Neck/Chest: normocephalic Neurologic: moves all extremities and awake Psychiatric: Orientation: alert and oriented x 3 Results & Data Vital Signs (Past 12 Hours) Vital Signs Pulse Pulse Pulse Resp BP Pulse Ox O2 Del Method 12/10/24 09:31 85 85 20 125/68 94 Nasal Cannula 12/10/24 09:23 Nasal Cannula 12/10/24 05:00 86 18 152/68 H 99 Nasal Cannula 12/10/24 04:02 88 18 100 Nasal Cannula 12/10/24 03:00 87 18 153/71 H 94 Nasal Cannula 12/10/24 01:06 90 18 127/76 97 Nasal Cannula 12/10/24 00:07 92 H 18 136/56 L 96 Nasal Cannula 12/09/24 23:20 89 12/09/24 23:20 81 18 170/71 H 96 Room Air O2 Flow Rate 12/10/24 09:31 2 12/10/24 09:23 12/10/24 05:00 3 12/10/24 04:02 3 12/10/24 03:00 3 12/10/24 01:06 3 12/10/24 00:07 3 12/09/24 23:20 12/09/24 23:20 PG Care Time/CCT Total # of Minutes Spent Total Time Spent with Patient: Total time spent is greater than 50% in coordination of care (as documented) at patient's floor/unit and/or counseling patient: Coding Level of Care Code 36714 SUB INP/OBS CARE 10/20MIN Diagnoses Complicated urinary tract infection N39.0 Ureteral stent retained Z96.0 Hydronephrosis N13.30 Hydronephrosis type: unspecified (3) Hydronephrosis Hydronephrosis type: unspecified Qualified Code(s): N13.30 - Unspecified hydronephrosis
--- NOTE | 2024-12-10 11:02 | Hospitalist Progress Note ---
Date of Service December 10, 2024 Assessment & Plan (1) Bilateral flank pain: (2) Acute UTI (urinary tract infection): (3) Chronic respiratory failure: (4) Diabetes: (5) HTN (hypertension): (6) HLD (hyperlipidemia): (7) Chronic diastolic heart failure: (8) History of pulmonary embolism: (9) History of DVT (deep vein thrombosis): (10) CKD (chronic kidney disease), stage III: (11) Fibromyalgia: (12) Depression with anxiety: (13) RLS (restless legs syndrome): (14) Hypothyroidism: (15) GERD (gastroesophageal reflux disease): Plan 69 year old female with PMH significant for DMII, HTN, HLD, CKD stage III, chronic hypoxemic respiratory failure on home O2, interstitial lung disease, chronic diastolic CHF, history of PE s/p IVC green filter, recurrent DVTs on Eliquis, venous insufficiency, postsurgical hypothyroidism, depression, anxiety, GERD, fibromyalgia, RLS, and recurrent UTIs who presented to the ED on 12/09 with bilateral flank and lower abdominal pain found to have a UTI. Bilateral flank pain Acute UTI Patient is s/p right ureteral stent in November 2023 that was exchanged in April 2024. Urology consulted and will consider stent exchange while inpatient after a few days of antibiotics. History of urosepsis, bacteremia, pseudomonas, VRE in the past. Continue IV cefepime and daptomycin. Blood and urine cultures pending. Afebrile and VSS. WBC 11.38 this morning. Pain management with tramadol q8hr PRN first line. Oxycodone q6hr PRN second line. Ordered tamsulosin 0.4mg qhs for stent discomfort. Chronic hypoxemic respiratory failure Interstitial lung disease Chronic, stable. On 2L NC while resting and 4L NC while ambulating per baseline. DMII Chronic, stable. Long-acting insulin and sliding scale. Hgb A1C pending. HTN Chronic, stable. Continue lasix. HLD Chronic, stable. Continue aspirin. Chronic diastolic CHF Chronic, stable. Continue lasix. Follows with Cardiology. History of PE, recurrent DVTs Doppler negative for DVT. Continue Eliquis and Plavix. CKD stage III BUN 28 and creatinine 1.79 this morning. Baseline creatinine around 1.6. Monitor labs. Fibromyalgia Chronic, stable. Continue duloxetine and gabapentin. Depression, anxiety Chronic, stable. Continue clonazepam and trazodone. RLS Chronic, stable. Continue ropinirole. Hypothyroidism Chronic, stable. Continue levothyroxine. GERD Chronic, stable. Continue pantoprazole. DVT Prophylaxis: on Eliquis and Plavix. Code Status: FULL CODE PCP: Dr. Galdino Andujar DO Disposition: Not medically cleared for discharge. Possible stent exchange on . Patient seen in collaboration with Dr. Pandye. Please see addendum. I spent a total of 50 minutes coordinating, documenting and providing care for this patient excluding time spent in the performance of separately billed services or time spent by another provider/QHP. Admission and Anticipated Discharge Date Admission Date: December 09, 2024 Subjective Stephanie is tearful this morning and complaining of 8/10 right sided flank and back pain that is intermittent and aching or stabbing in quality. She reports urinary frequency with slight dysuria. She is also complaining of generalized abdominal pain and chills. She denies chest pain, SOB, N/V/D. She has been up to her chair this morning. She is currently NPO. Review of Systems Review of Systems: All systems reviewed & are unremarkable except as noted in HPI & below Physical Exam Physical Exam: VITALS: Reviewed and VSS. On 2L NC per baseline. GEN: Ill appearing, obese female. Tearful. PSYCH: Good Judgment. AOx3. Normal memory, mood, and affect. HEENT: Head NC/AT. Sclera white and conjunctiva pink. Nares without rhinorrhea. Nasal and oral mucosa pink. NECK: Supple, with no masses. CV: RRR, no m/r/g. LUNGS: CTAB, no w/r/c. ABD: Soft, ND, NBS, no masses or organomegaly. Generalized abdominal pain in all quadrants on palpation. Right flank and back pain on palpation. SKIN: Warm, well perfused. No skin rashes or abnormal lesions. MSK: No deformities, Normal gait. EXT: No clubbing, cyanosis, or edema. NEURO: Ambulating to chair with assistance. No focal deficits. Results & Data Results & Data Vital Signs (Past 12 Hours) Vital Signs Pulse Pulse Pulse Resp BP Pulse Ox O2 Del Method 12/10/24 09:31 85 85 20 125/68 94 Nasal Cannula 12/10/24 09:23 Nasal Cannula 12/10/24 05:00 86 18 152/68 H 99 Nasal Cannula 12/10/24 04:02 88 18 100 Nasal Cannula 12/10/24 03:00 87 18 153/71 H 94 Nasal Cannula 12/10/24 01:06 90 18 127/76 97 Nasal Cannula 12/10/24 00:07 92 H 18 136/56 L 96 Nasal Cannula 12/09/24 23:20 89 12/09/24 23:20 81 18 170/71 H 96 Room Air O2 Flow Rate 12/10/24 09:31 2 12/10/24 09:23 12/10/24 05:00 3 12/10/24 04:02 3 12/10/24 03:00 3 12/10/24 01:06 3 12/10/24 00:07 3 12/09/24 23:20 12/09/24 23:20 Laboratory Results Short CBC 12/09/24 12/10/24 Range/Units 19:32 06:42 WBC 12.28 H 11.38 H (4.8-10.8) K/ul Hgb 12.0 11.3 L (12.0-16.0) g/dl Hct 38.5 36.3 L (37.0-47.0) % Plt Count 351 299 (130-400) K/uL BMP 12/09/24 12/10/24 19:32 06:42 Sodium 138 143 Potassium 3.8 3.5 Chloride 95 L 102 Carbon Dioxide 36 H 35 H BUN 33 H 28 H Creatinine 1.98 H 1.79 H Glucose 159 H 96 Calcium 9.3 8.8 Liver Function 12/09/24 Range/Units 19:32 Total Bilirubin 0.3 (0.2-1.0) mg/dl AST 11 L (13-39) U/L ALT 6 L (7-52) U/L Alkaline Phosphatase 104 (34-104) U/L Albumin 3.9 (3.4-5.0) gm/dl Urine 12/09/24 Range/Units 19:32 Urine Color Yellow Urine Appearance Cloudy A (Clear) Urine pH 8.0 H (4.5-7.5) Ur Specific [place] 1.008 (1.000-1.030) Urine Protein 1+ H (Negative) Urine Glucose (UA) Negative (Negative) I have independently reviewed and interpreted patient's labs including CBC, CMP, and UA. Diagnostic Findings Abdomen/Pelvis CT 12/09/24 20:32 Exam(s): CT ABDOMEN + PELVIS Without Contrast EXAM: CT Abdomen and Pelvis Without Intravenous Contrast CLINICAL HISTORY: Reason for exam: bilateral flank pain. TECHNIQUE: Axial computed tomography images of the abdomen and pelvis without intravenous contrast. CTDI is 28.14 mGy and DLP is 1387.25 mGy-cm. Automated exposure control was utilized for the study. A dose lowering technique was utilized adhering to the principles of ALARA. COMPARISON: January 16, 2024 FINDINGS: Lung bases: Mild fibrotic changes in the lung bases. No consolidation. ABDOMEN: Liver: The liver is mildly enlarged is a 19.2 cm. No focal liver mass lesion is seen. Gallbladder and bile ducts: Previous cholecystectomy. No biliary duct dilation or choledocholithiasis is seen. Pancreas: Unremarkable. No ductal dilation. Spleen: Unremarkable. No splenomegaly. Adrenals: Unremarkable. No mass. Kidneys and ureters: Unremarkable. No obstructing stones. No hydronephrosis. Stomach and bowel: There is a 5 cm right paracentral anterior abdominal wall hernia containing a short segment of colon. No signs of acute inflammation or obstruction. No mucosal thickening. PELVIS: Appendix: No findings to suggest acute appendicitis. Bladder: Unremarkable. No stones. Reproductive: Unremarkable as visualized. ABDOMEN and PELVIS: Intraperitoneal space: Bowel loops are nondilated. No pneumoperitoneum, free fluid, or acute inflammatory changes are seen involving the bowel. Bones/joints: Moderate multilevel degenerative changes throughout the spine. No acute fracture or subluxation. Soft tissues: See above. Vasculature: The abdominal aorta is severely calcified. There is no aneurysm. This is a noncontrast study. There is at least 40% stenosis due to calcified plaque. There is an IVC filter in standard position. Lymph nodes: Unremarkable. No enlarged lymph nodes. Tubes, lines and devices: There is a right-sided double-J ureteral stent in good position. There is moderate dilation of the right renal pelvis measuring 4.2 cm transverse, similar to previous. No surrounding edema is seen. IMPRESSION: 1. There is a 5 cm right paracentral anterior abdominal wall hernia containing a short segment of colon. No signs of acute inflammation or obstruction. 2. There is a right-sided double-J ureteral stent in good position. There is moderate dilation of the right renal pelvis measuring 4.2 cm transverse, similar to previous. No surrounding edema is seen. 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 Some component of stent dysfunction cannot be excluded. 3. Bowel loops are nondilated. No pneumoperitoneum, free fluid, or acute inflammatory changes are seen involving the bowel. Electronically signed by: Zia Duncan MD 12/09/24 22:37 PM Venous Doppler Study 12/10/24 00:35 BILATERAL LOWER EXTREMITY VENOUS DOPPLER HISTORY: b/l lower ext edema. dvt? COMPARISON STUDY: 03/02/2019 FINDINGS: No evidence of DVT seen in bilateral lower extremities. IMPRESSION: No DVT seen. ACT 112: Negative or not required by law. Electronically signed by: Isai Westbrook M.D. 12/10/2024 9:32 AM Medications Administered Current Inpatient Medications Apixaban (Apixaban 2.5 Mg Tab) 2.5 mg PO BID [facility] Stop: 01/09/25 08:59 Last Admin: 12/10/24 09:14 Dose: 2.5 mg Aspirin (Aspirin 81 Mg Ectab) 81 mg PO QAM [facility] Stop: 01/09/25 08:59 Last Admin: 12/10/24 09:14 Dose: 81 mg Clonazepam (Clonazepam 0.5 Mg Tab) 0.5 mg PO TID [facility] Stop: 01/09/25 08:59 Last Admin: 12/10/24 09:14 Dose: 0.5 mg Clopidogrel Bisulfate (Clopidogrel Bisulfate 75 Mg Tab) 75 mg PO QAM [facility] Stop: 01/09/25 08:59 Last Admin: 12/10/24 09:14 Dose: 75 mg Dextrose (Dextrose 50% 50 Ml Syringe) 25 - 50 ml IV UD PRN; Protocol PRN Reason: Hypoglycemia Protocol Stop: 01/09/25 00:34 Dicyclomine HCl (Dicyclomine Hcl 20 Mg Tab) 20 mg PO QID PRN PRN Reason: abdominal cramping Stop: 01/09/25 00:34 Duloxetine HCl (Duloxetine Hcl 60 Mg Cap) 60 mg PO QAM [facility] Stop: 01/09/25 08:59 Last Admin: 12/10/24 09:14 Dose: 60 mg Fluticasone Propionate (Fluticasone Propionate Na Spr 16 Gm Btl) 2 sprays NA [facility] Stop: 01/09/25 08:59 Last Admin: 12/10/24 09:15 Dose: 2 sprays Furosemide (Furosemide 20 Mg Tab) 60 mg PO [id number] [facility] Stop: 01/09/25 08:59 Last Admin: 12/10/24 09:14 Dose: 60 mg Gabapentin (Gabapentin 300 Mg Cap) 300 mg PO [facility] Stop: 01/09/25 08:59 Last Admin: 12/10/24 09:14 Dose: 300 mg Glucagon (Glucagon For Inj 1 Mg Vial) 1 mg SQ UD PRN; Protocol PRN Reason: Hypoglycemia Protocol Stop: 01/09/25 00:34 Glucose (Glucose 40% Gel 15 Gm Tube) 15 - 30 gm PO UD PRN; Protocol PRN Reason: Hypoglycemia Protocol Stop: 01/09/25 00:34 Glucose (Glucose 10 Tab/Tube) 4 - 8 tab PO UD PRN; Protocol PRN Reason: Hypoglycemia Protocol Stop: 01/09/25 00:34 Sodium Chloride (Nss) 1,000 mls @ 75 mls/hr IV .[id number] [facility] Stop: 12/11/24 00:34 Last Admin: 12/10/24 01:43 Dose: 75 mls/hr Acetaminophen (Ofirmev) 1,000 mg in 100 mls @ 400 mls/hr IV Q8H PRN PRN Reason: Pain or Fever Stop: 12/13/24 00:34 Last Infusion: 12/10/24 09:54 Dose: Infused Cefepime HCl (Maxipime 2000mg) 2,000 mg in 20 mls @ 5 mls/min IV Q12H ROBERT; Protocol Stop: 12/20/24 01:59 Last Admin: 12/10/24 01:41 Dose: 5 mls/min Daptomycin 850 mg/ Syringe 17 mls @ 8.5 mls/min IV Q24H [facility]ERT; Protocol Stop: 12/20/24 21:59 Insulin Aspart (Insulin Aspart Per Unit Charge) 0 units SC Q6 [facility] Stop: 01/09/25 01:29 Last Admin: 12/10/24 05:45 Dose: Not Given Insulin Glargine (Lantus Per Unit Charge) 10 units SQ HS [facility] Stop: 01/09/25 20:59 Levothyroxine Sodium (Levothyroxine Sodium 200 Mcg Tablet) 200 mcg PO DAILYBB [facility] Stop: 01/09/25 06:29 Last Admin: 12/10/24 07:59 Dose: 200 mcg Magnesium Oxide (Magnesium Oxide 400 Mg Tab) 400 mg PO BID [facility] Stop: 01/09/25 08:59 Last Admin: 12/10/24 09:13 Dose: 400 mg Miscellaneous (Carbohydrates For Hypoglycemia ) 15 - 30 gm PO UD PRN PRN Reason: Hypoglycemia Protocol Stop: 01/09/25 00:34 Miscellaneous Information (Pharmacy Glycemic Mgmt Consult) 1 each N/A UD PRN PRN Reason: Consult Stop: 01/09/25 00:34 Nitroglycerin (Nitroglycerin Sl 0.4 Mg/Tab Tab) 0.4 mg SL Q5M PRN PRN Reason: Chest Pain Stop: 01/09/25 00:34 Ondansetron HCl (Ondansetron Inj 2 Mg/Ml 2 Ml Vial) 4 mg IV Q6H PRN PRN Reason: Nausea Stop: 01/09/25 00:34 Pantoprazole Sodium (Pantoprazole 40 Mg Tab) 40 mg PO QAM [facility] Stop: 01/09/25 08:59 Last Admin: 12/10/24 09:14 Dose: 40 mg Polyethylene Glycol (Polyethylene (Miralax) 17 Gm Pack) 17 gm PO DAILY PRN PRN Reason: Constipation Stop: 01/09/25 00:34 Potassium Chloride (Potassium Chloride Crtab 20 Meq Tabcr) 20 meq PO BID [facility] Stop: 01/09/25 08:59 Last Admin: 12/10/24 09:14 Dose: 20 meq Ropinirole HCl (Ropinirole Hcl 2 Mg Tablet) 2 mg PO HS [facility] Stop: 01/09/25 20:59 Senna/Docusate Sodium (Docusate Sodium/Senna 50/8.6mg Tab) 1 tab PO BID [facility] Stop: 01/09/25 08:59 Last Admin: 12/10/24 09:14 Dose: 1 tab Tizanidine HCl (Tizanidine Hcl 4 Mg Tablet) 4 mg PO Q6 PRN PRN Reason: Muscle Spasm Stop: 01/09/25 00:34 Last Admin: 12/10/24 05:23 Dose: 4 mg Tramadol HCl (Tramadol Hcl 50 Mg Tablet) 50 mg PO Q8 PRN PRN Reason: Pain Stop: 01/09/25 00:34 Last Admin: 12/10/24 09:51 Dose: 50 mg Trazodone HCl (Trazodone Hcl 50 Mg Tab) 50 mg PO HS [facility]ERT Stop: 01/09/25 20:59 Vitamin D (Cholecalciferol 25 Mcg (1000 Units) Tab) 25 mcg PO DAILY [facility] Stop: 01/09/25 08:59 Last Admin: 12/10/24 09:13 Dose: 25 mcg (3) Chronic respiratory failure Respiratory failure complication: hypoxia Qualified Code(s): J96.11 - Chronic respiratory failure with hypoxia (5) HTN (hypertension) Hypertension type: primary hypertension Qualified Code(s): I10 - Essential (primary) hypertension (10) CKD (chronic kidney disease), stage III Chronic kidney disease stage 3 subtype: unspecified whether 3a or 3b Qualified Code(s): N18.30 - Chronic kidney disease, stage 3 unspecified (14) Hypothyroidism Hypothyroidism type: unspecified Qualified Code(s): E03.9 - Hypothyroidism, unspecified
[2024-12-10 11:38] LABS: Estimated Average Glucose 148 mg/dl; Hemoglobin A1C 6.8 % (4.5-5.6)
--- NOTE | 2024-12-10 13:39 | Pharmacy Report ---
Pharmacy Glycemic Short Note 2 - Date of Service December 10, 2024 - Glycemic Short BSG Results (Last 24 hours): 12/09/24 12/10/24 12/10/24 19:32 00:57 05:27 Glucose 159 H POC Glucose 110 H 99 12/10/24 06:42 Glucose 96 POC Glucose OUTPATIENT ANTIDIABETIC REGIMEN: * Tresiba 41 units SC PM * Novolog 40-45 units SC AC + SSI (CF 25) * Mounjaro 7.5 mg SC every Tuesday HbA1c: * 6.8% (12/10/24) ASSESSMENT: * 69 yo F admitted on 12/10/24 secondary to possible UTI. Pharmacy has been consulted to assist with inpatient glycemic management. Patient is a Type 2 diabetic as an outpatient. Please refer to outpatient regimen and most recent HbA1c above. * Patient was NPO for most of the morning but now a T2DM diet was started with lunch. On daptomycin and cefepime for UTI. * BSGs this morning were 110-99-96 mg/dL. Based on previous admissions, patient has tolerated 12 units of basal at bedtime while eating. Will start with 10 units basal tonight. Novolog parameters based on previous admission data as well. PLAN FOR INPATIENT GLYCEMIC CONTROL: * Basal insulin * Lantus 10 units SC HS * Bolus insulin * NovoLog per scale ACHS or Q6hrs while NPO * Goal Range: Low 110 mg/dL - High 140 mg/dL * Correction Factor: 20 mg/dL/unit * Nutritional / Prandial insulin per carb ratio of 1 unit per 7 grams CHO consumed
[2024-12-10] MEDS: oxyCODONE HCL IR 5 MG TAB (IMMEDIATE RELEASE) PO PRN (14:18)
[2024-12-10] MEDS: traZODone HCL 50 MG TAB PO SCH (21:54)
[2024-12-10] MEDS: LANTUS PER UNIT CHARGE SQ SCH (21:54)
[2024-12-10] MEDS: rOPINIRole HCL 2 MG TABLET PO SCH (21:55)
[2024-12-10] MEDS: DICYCLOMINE HCL 20 MG TAB PO PRN (21:57)
[2024-12-10] MEDS: TAMSULOSIN HCL 0.4 MG CAP PO SCH (22:02)
[2024-12-10] MEDS: DAPTOmycin 850 MG in SYRINGE 0 ML IV SCH (22:04)
[2024-12-11 06:28] LABS: Calcium 8.9 mg/dl (8.6-10.3); Potassium 3.9 mmol/L (3.5-5.1)
[2024-12-11 06:29] LABS: Hematocrit (blood only) 38.4 % (37.0-47.0); Mean Corpuscular Hemoglobin 29.5 pg (25.0-34.0); Mean Corpuscular Hgb Conc 31.3 g/dL (32.0-36.0); Mean Corpuscular Volume 94.3 fL (80.0-100.0); Mean Platelet Volume 9.3 fL (9.4-12.4); Platelet Count 311 K/uL (130-400); RDW Coefficient of Variation 13.8 % (11.5-14.5); RDW Standard Deviation 47.8 fL (36.4-46.3); Red Blood Count 4.07 M/uL (4.20-5.40); White Blood Count 9.54 K/ul (4.8-10.8)
[2024-12-11 06:34] LABS: BUN Creatinine Ratio 13.3 (10-20)
--- NOTE | 2024-12-11 09:54 | Hospitalist Progress Note ---
Date of Service December 11, 2024 Assessment & Plan (1) Bilateral flank pain: (2) Acute UTI (urinary tract infection): (3) Chronic respiratory failure: (4) Diabetes: (5) HTN (hypertension): (6) HLD (hyperlipidemia): (7) Chronic diastolic heart failure: (8) History of pulmonary embolism: (9) History of DVT (deep vein thrombosis): (10) CKD (chronic kidney disease), stage III: (11) Fibromyalgia: (12) Depression with anxiety: (13) RLS (restless legs syndrome): (14) Hypothyroidism: (15) GERD (gastroesophageal reflux disease): Plan 69 year old female with PMH significant for DMII, HTN, HLD, CKD stage III, chronic hypoxemic respiratory failure on home O2, interstitial lung disease, chronic diastolic CHF, history of PE s/p IVC green filter, recurrent DVTs on Eliquis, venous insufficiency, postsurgical hypothyroidism, depression, anxiety, GERD, fibromyalgia, RLS, and recurrent UTIs who presented to the ED on 12/09 with bilateral flank and lower abdominal pain found to have a UTI. Bilateral flank pain Acute UTI Patient is s/p right ureteral stent in November 2023 that was exchanged in April 2024. Urology consulted and will consider stent exchange while inpatient after a few days of antibiotics (possibly ). History of urosepsis, bacteremia, pseudomonas, VRE in the past. Continue IV cefepime and daptomycin. Blood and urine cultures no growth so far. Afebrile and VSS. WBC 9.54 this morning. Pain management with tramadol q8hr PRN first line. Oxycodone q6hr PRN second line. Continue tamsulosin 0.4mg qhs for stent discomfort. Chronic hypoxemic respiratory failure Interstitial lung disease Chronic, stable. On 2-3L NC while resting and 4L NC while ambulating per baseline. DMII Chronic, stable. Hgb A1C 6.8. Long-acting insulin and sliding scale. Pharmacy consult. HTN Chronic, stable. Continue lasix. HLD Chronic, stable. Continue aspirin. Chronic diastolic CHF Chronic, stable. Continue lasix. Follows with Cardiology. History of PE, recurrent DVTs Doppler negative for DVT. Continue Eliquis and Plavix. CKD stage III BUN 26 and creatinine 1.96 this morning. Baseline creatinine around 1.6. Monitor labs. Fibromyalgia Chronic, stable. Continue duloxetine and gabapentin. Depression, anxiety Chronic, stable. Continue clonazepam and trazodone. RLS Chronic, stable. Continue ropinirole. Hypothyroidism Chronic, stable. Continue levothyroxine. GERD Chronic, stable. Continue pantoprazole. DVT Prophylaxis: on Eliquis and Plavix. Code Status: FULL CODE PCP: Dr. Galdino Andujar, Disposition: Not medically cleared for discharge. Possible stent exchange on . Patient seen in collaboration with Dr. Pandey. Please see addendum. I spent a total of 50 minutes coordinating, documenting and providing care for this patient excluding time spent in the performance of separately billed services or time spent by another provider/QHP. Admission and Anticipated Discharge Date Admission Date: December 09, 2024 Supervising Physician Co-Signing Physician Notes Patient seen and examined Reports flank pain is improved Reports constipation Continue IV Cefepime Follow up infectious workup Urology planning stent exchange on 12/13/24 Agree with other plans as detailed by Aliya SIMPSON Zaina Brown is doing well this morning. She was up to her chair. She has 6/10 right sided flank and back pain that is improves with medicine. She also has generalized abdominal pain. She states her urinary frequency is improved but she is still having itching and burning when she urinates. She denies chest pain, SOB, N/V/D. Her last bowel movement was 12/09. She is eating and drinking well. No concerns from nursing. Review of Systems Review of Systems: All systems reviewed & are unremarkable except as noted in HPI & below Physical Exam Physical Exam: VITALS: Reviewed and VSS. On 2-3L NC per baseline. GEN: Well appearing, obese female. PSYCH: Good Judgment. AOx3. Normal memory, mood, and affect. HEENT: Head NC/AT. Sclera white and conjunctiva pink. Nares without rhinorrhea. Nasal and oral mucosa pink. NECK: Supple, with no masses. CV: RRR, no m/r/g. LUNGS: CTAB, no w/r/c. ABD: Soft, ND, NBS, no masses or organomegaly. Generalized abdominal pain in all quadrants on palpation. Right flank and back pain on palpation. SKIN: Warm, well perfused. No skin rashes or abnormal lesions. MSK: No deformities, Normal gait. EXT: No clubbing, cyanosis, or edema. NEURO: Ambulating to chair with assistance. No focal deficits. Results & Data Results & Data Vital Signs (Past 12 Hours) Vital Signs Temp Pulse Pulse Pulse Resp BP BP 12/11/24 07:53 36.5 C 80 20 98/62 L 12/11/24 03:56 36.5 C 77 16 130/71 12/10/24 22:40 36.5 C 70 16 151/81 H 12/10/24 22:15 74 Pulse Ox O2 Del Method O2 Flow Rate 12/11/24 07:53 95 Nasal Cannula 3 12/11/24 03:56 97 Nasal Cannula 3.5 12/10/24 22:40 100 Nasal Cannula 3 12/10/24 22:15 Laboratory Results Short CBC 12/11/24 Range/Units 05:50 WBC 9.54 (4.8-10.8) K/ul Hgb 12.0 (12.0-16.0) g/dl Hct 38.4 (37.0-47.0) % Plt Count 311 (130-400) K/uL BMP 12/11/24 05:50 Sodium 139 Potassium 3.9 Chloride 102 Carbon Dioxide 31 BUN 26 H Creatinine 1.96 H Glucose 111 H Calcium 8.9 I have independently reviewed and interpreted patient's labs including CBC and BMP. Medications Administered Current Inpatient Medications Apixaban (Apixaban 2.5 Mg Tab) 2.5 mg PO BID [facility] Stop: 01/09/25 08:59 Last Admin: 12/10/24 21:54 Dose: 2.5 mg Aspirin (Aspirin 81 Mg Ectab) 81 mg PO QAM [facility] Stop: 01/09/25 08:59 Last Admin: 12/10/24 09:14 Dose: 81 mg Clonazepam (Clonazepam 0.5 Mg Tab) 0.5 mg PO TID [facility] Stop: 01/09/25 08:59 Last Admin: 12/10/24 21:53 Dose: 0.5 mg Clopidogrel Bisulfate (Clopidogrel Bisulfate 75 Mg Tab) 75 mg PO QAM [facility] Stop: 01/09/25 08:59 Last Admin: 12/10/24 09:14 Dose: 75 mg Dextrose (Dextrose 50% 50 Ml Syringe) 25 - 50 ml IV UD PRN; Protocol PRN Reason: Hypoglycemia Protocol Stop: 01/09/25 00:34 Dicyclomine HCl (Dicyclomine Hcl 20 Mg Tab) 20 mg PO QID PRN PRN Reason: abdominal cramping Stop: 01/09/25 00:34 Last Admin: 12/10/24 21:57 Dose: 20 mg Duloxetine HCl (Duloxetine Hcl 60 Mg Cap) 60 mg PO QAM [facility] Stop: 01/09/25 08:59 Last Admin: 12/10/24 09:14 Dose: 60 mg Fluticasone Propionate (Fluticasone Propionate Na Spr 16 Gm Btl) 2 sprays NA [facility] Stop: 01/09/25 08:59 Last Admin: 12/10/24 21:53 Dose: 2 sprays Furosemide (Furosemide 20 Mg Tab) 60 mg PO BID17 ROBERT Stop: 01/09/25 08:59 Last Admin: 12/10/24 18:18 Dose: Not Given Gabapentin (Gabapentin 300 Mg Cap) 300 mg PO AMHS [facility] Stop: 01/09/25 08:59 Last Admin: 12/10/24 21:55 Dose: 300 mg Glucagon (Glucagon For Inj 1 Mg Vial) 1 mg SQ UD PRN; Protocol PRN Reason: Hypoglycemia Protocol Stop: 01/09/25 00:34 Glucose (Glucose 40% Gel 15 Gm Tube) 15 - 30 gm PO UD PRN; Protocol PRN Reason: Hypoglycemia Protocol Stop: 01/09/25 00:34 Glucose (Glucose 10 Tab/Tube) 4 - 8 tab PO UD PRN; Protocol PRN Reason: Hypoglycemia Protocol Stop: 01/09/25 00:34 Acetaminophen (Ofirmev) 1,000 mg in 100 mls @ 400 mls/hr IV Q8H PRN PRN Reason: Pain or Fever Stop: 12/13/24 00:34 Last Infusion: 12/11/24 00:38 Dose: Infused Cefepime HCl (Maxipime 2000mg) 2,000 mg in 20 mls @ 5 mls/min IV Q12H ROBERT; Protocol Stop: 12/20/24 01:59 Last Admin: 12/11/24 02:11 Dose: 5 mls/min Daptomycin 850 mg/ Syringe 17 mls @ 8.5 mls/min IV Q24H ROBERT; Protocol Stop: 12/20/24 21:59 Last Admin: 12/10/24 22:04 Dose: 8.5 mls/min Insulin Aspart (Insulin Aspart Per Unit Charge) 0 units SC ACHS [facility] Stop: 01/09/25 20:59 Last Admin: 12/10/24 21:56 Dose: Not Given Insulin Glargine (Lantus Per Unit Charge) 10 units SQ HS [facility] Stop: 01/09/25 20:59 Last Admin: 12/10/24 21:54 Dose: 10 units Levothyroxine Sodium (Levothyroxine Sodium 200 Mcg Tablet) 200 mcg PO DAILYBB [facility] Stop: 01/09/25 06:29 Last Admin: 12/11/24 06:08 Dose: 200 mcg Magnesium Oxide (Magnesium Oxide 400 Mg Tab) 400 mg PO BID [facility] Stop: 01/09/25 08:59 Last Admin: 12/10/24 21:55 Dose: 400 mg Miscellaneous (Carbohydrates For Hypoglycemia ) 15 - 30 gm PO UD PRN PRN Reason: Hypoglycemia Protocol Stop: 01/09/25 00:34 Miscellaneous Information (Pharmacy Glycemic Mgmt Consult) 1 each N/A UD PRN PRN Reason: Consult Stop: 01/09/25 00:34 Nitroglycerin (Nitroglycerin Sl 0.4 Mg/Tab Tab) 0.4 mg SL Q5M PRN PRN Reason: Chest Pain Stop: 01/09/25 00:34 Ondansetron HCl (Ondansetron Inj 2 Mg/Ml 2 Ml Vial) 4 mg IV Q6H PRN PRN Reason: Nausea Stop: 01/09/25 00:34 Oxycodone HCl (Oxycodone Hcl Ir 5 Mg Tab (Immediate Release)) 5 mg PO Q6 PRN PRN Reason: Mod/Sev (6-10) Pain Stop: 12/24/24 11:43 Last Admin: 12/10/24 21:52 Dose: 5 mg Pantoprazole Sodium (Pantoprazole 40 Mg Tab) 40 mg PO QAM [facility] Stop: 01/09/25 08:59 Last Admin: 12/10/24 09:14 Dose: 40 mg Polyethylene Glycol (Polyethylene (Miralax) 17 Gm Pack) 17 gm PO DAILY PRN PRN Reason: Constipation Stop: 01/09/25 00:34 Potassium Chloride (Potassium Chloride Crtab 20 Meq Tabcr) 20 meq PO BID [facility] Stop: 01/09/25 08:59 Last Admin: 12/10/24 21:55 Dose: 20 meq Ropinirole HCl (Ropinirole Hcl 2 Mg Tablet) 2 mg PO HS [facility] Stop: 01/09/25 20:59 Last Admin: 12/10/24 21:55 Dose: 2 mg Senna/Docusate Sodium (Docusate Sodium/Senna 50/8.6mg Tab) 1 tab PO BID [facility] Stop: 01/09/25 08:59 Last Admin: 12/10/24 21:55 Dose: 1 tab Tamsulosin HCl (Tamsulosin Hcl 0.4 Mg Cap) 0.4 mg PO HS ROBERT Stop: 01/09/25 20:59 Last Admin: 12/10/24 22:02 Dose: 0.4 mg Tizanidine HCl (Tizanidine Hcl 4 Mg Tablet) 4 mg PO Q6 PRN PRN Reason: Muscle Spasm Stop: 01/09/25 00:34 Last Admin: 12/11/24 01:43 Dose: 4 mg Tramadol HCl (Tramadol Hcl 50 Mg Tablet) 50 mg PO Q8 PRN PRN Reason: Pain Stop: 01/09/25 00:34 Last Admin: 12/10/24 18:11 Dose: 50 mg Trazodone HCl (Trazodone Hcl 50 Mg Tab) 50 mg PO HS [facility] Stop: 01/09/25 20:59 Last Admin: 12/10/24 21:54 Dose: 50 mg Vitamin D (Cholecalciferol 25 Mcg (1000 Units) Tab) 25 mcg PO DAILY [facility] Stop: 01/09/25 08:59 Last Admin: 12/10/24 09:13 Dose: 25 mcg (3) Chronic respiratory failure Respiratory failure complication: hypoxia Qualified Code(s): J96.11 - Chronic respiratory failure with hypoxia (5) HTN (hypertension) Hypertension type: primary hypertension Qualified Code(s): I10 - Essential (primary) hypertension (10) CKD (chronic kidney disease), stage III Chronic kidney disease stage 3 subtype: unspecified whether 3a or 3b Qualified Code(s): N18.30 - Chronic kidney disease, stage 3 unspecified (14) Hypothyroidism Hypothyroidism type: unspecified Qualified Code(s): E03.9 - Hypothyroidism, unspecified
--- NOTE | 2024-12-11 13:10 | Pharmacy Report ---
Pharmacy Glycemic Short Note 2 - Date of Service December 11, 2024 - Glycemic Short BSG Results (Last 24 hours): 12/10/24 12/10/24 12/10/24 11:57 16:50 20:32 Glucose POC Glucose 96 122 H 112 H 12/11/24 12/11/24 12/11/24 05:50 07:29 11:49 Glucose 111 H POC Glucose 147 H 140 H OUTPATIENT ANTIDIABETIC REGIMEN: * Tresiba 41 units SC PM * Novolog 40-45 units SC AC + SSI (CF 25) * Mounjaro 7.5 mg SC every Tuesday HbA1c: * 6.8% (12/10/24) ASSESSMENT: 12/11/24: * Blood sugars well-controlled yesterday, ranging 96-122 mg/dL w/ fasting blood sugar of 147 mg/dL this morning * Received 20 units of insulin (50/50 basal bolus split) * Do not anticipate any changes to glycemic regimen today 12/10/24: * 69 yo F admitted on 12/10/24 secondary to possible UTI. Pharmacy has been consulted to assist with inpatient glycemic management. Patient is a Type 2 diabetic as an outpatient. Please refer to outpatient regimen and most recent HbA1c above. * Patient was NPO for most of the morning but now a T2DM diet was started with lunch. On daptomycin and cefepime for UTI. * BSGs this morning were 110-99-96 mg/dL. Based on previous admissions, patient has tolerated 12 units of basal at bedtime while eating. Will start with 10 units basal tonight. Novolog parameters based on previous admission data as well. PLAN FOR INPATIENT GLYCEMIC CONTROL: * Basal insulin * Lantus 10 units SC HS * Bolus insulin * NovoLog per scale ACHS or Q6hrs while NPO * Goal Range: Low 110 mg/dL - High 140 mg/dL * Correction Factor: 20 mg/dL/unit * Nutritional / Prandial insulin per carb ratio of 1 unit per 7 grams CHO consumed
--- NOTE | 2024-12-11 14:42 | Urology Progress Note ---
Date of Service December 11, 2024 Assessment & Plan (1) Complicated urinary tract infection: (2) Ureteral stent retained: (3) Hydronephrosis: Plan: 69 yo/F with history of right hydronephrosis managed with right ureteral stent exchanges (last exchanged 04/26/24) admitted for complicated UTI. Patient is afebrile and hemodynamically stable Labs today reviewedcreatinine 1.96, WBC 9.54 Blood cultures with no growth x 24 hours Urine culture with 3 types of organisms present, all high counts Continue with broad-spectrum antibiotics, follow cultures Ureteral stent due to be exchanged, last exchanged on 04/26/24 Recommend continue with antibiotics for now Discussed options for ureteral stent exchange in a few days while inpatient versus keeping her outpatient follow-up on 12/14 to schedule outpatient procedure After discussion, she would like to proceed with right ureteral stent exchange while inpatient Will plan for right ureteral stent exchange possibly on 12/13 Make NPO at MD prior to procedure will follow peripherally in the interim, please call with any additional questions or concerns Admission and Anticipated Discharge Date Admission Date: December 09, 2024 Subjective Patient seen and examined at bedside this afternoon. She reports she was feeling better this morning, but feels tired at present. Reports some burning w ith urination. Intermittent right flank discomfort. Denies nausea, vomiting, fever or chills. Review of Systems Constitutional: as per Subjective / HPI Genitourinary: as per Subjective / HPI Physical Exam Constitutional: + obese; no acute distress Respiratory: no respiratory distress and no labored breathing supplemental oxygen in place Gastrointestinal (Abdomen): Inspection/Auscultation: abdomen normal to inspection Musculoskeletal: Head/Neck/Chest: normocephalic Neurologic: moves all extremities and awake Psychiatric: Orientation: alert and oriented x 3 Results & Data Vital Signs (Past 12 Hours) Vital Signs Temp Pulse Pulse Resp BP Pulse Ox O2 Del Method 12/11/24 11:04 36.5 C 88 20 135/62 98 Nasal Cannula 12/11/24 07:53 36.5 C 80 20 98/62 L 95 Nasal Cannula 12/11/24 03:56 36.5 C 77 16 130/71 97 Nasal Cannula O2 Flow Rate 12/11/24 11:04 3 12/11/24 07:53 3 12/11/24 03:56 3.5 PG Care Time/CCT Total # of Minutes Spent Total Time Spent with Patient: Total time spent is greater than 50% in coordination of care (as documented) at patient's floor/unit and/or counseling patient: Coding Level of Care Code 57114 SUB INP/OBS CARE 10/20MIN Diagnoses Complicated urinary tract infection N39.0 Ureteral stent retained Z96.0 Hydronephrosis N13.30 Hydronephrosis type: unspecified (3) Hydronephrosis Hydronephrosis type: unspecified Qualified Code(s): N13.30 - Unspecified hydronephrosis
[2024-12-11] MEDS: FLUCONAZOLE 50 MG TAB PO ONE (23:19)
[2024-12-12 06:36] LABS: Hematocrit (blood only) 34.3 % (37.0-47.0); Hemoglobin 10.8 g/dl (12.0-16.0); Mean Corpuscular Hemoglobin 29.3 pg (25.0-34.0); Mean Corpuscular Hgb Conc 31.5 g/dL (32.0-36.0); Mean Platelet Volume 9.4 fL (9.4-12.4); Platelet Count 317 K/uL (130-400); RDW Coefficient of Variation 13.8 % (11.5-14.5); RDW Standard Deviation 47.2 fL (36.4-46.3); Red Blood Count 3.69 M/uL (4.20-5.40); White Blood Count 11.13 K/ul (4.8-10.8)
[2024-12-12 06:54] LABS: BUN Creatinine Ratio 15.1 (10-20); Calcium 8.8 mg/dl (8.6-10.3); Creatinine Clr Calc Pharmacy 38.4 ml/min; Potassium 3.8 mmol/L (3.5-5.1)
[2024-12-12] MEDS: MAGNESIUM HYDROXIDE SUSP 30 ML UDC PO ONE (09:59)
[2024-12-12] MEDS: POLYETHYLENE (MIRALAX) 17 GM PACK PO PRN (13:30)
[2024-12-12] MEDS: ONDANSETRON INJ 2 MG/ML 2 ML VIAL IV PRN (13:30)
--- NOTE | 2024-12-12 16:09 | Hospitalist Progress Note ---
Date of Service December 12, 2024 Assessment & Plan (1) Bilateral flank pain: (2) Acute UTI (urinary tract infection): (3) Chronic respiratory failure: (4) Diabetes: (5) HTN (hypertension): (6) HLD (hyperlipidemia): (7) Chronic diastolic heart failure: (8) History of pulmonary embolism: (9) History of DVT (deep vein thrombosis): (10) CKD (chronic kidney disease), stage III: (11) Fibromyalgia: (12) Depression with anxiety: (13) RLS (restless legs syndrome): (14) Hypothyroidism: (15) GERD (gastroesophageal reflux disease): Plan per previous hospitalist notes with addendum: 69 year old female with PMH significant for DMII, HTN, HLD, CKD stage III, chronic hypoxemic respiratory failure on home O2, interstitial lung disease, chronic diastolic CHF, history of PE s/p IVC green filter, recurrent DVTs on Eliquis, venous insufficiency, postsurgical hypothyroidism, depression, anxiety, GERD, fibromyalgia, RLS, and recurrent UTIs who presented to the ED on 12/09 with bilateral flank and lower abdominal pain found to have a UTI. Bilateral flank pain Acute UTI Patient is s/p right ureteral stent in November 2023 that was exchanged in April 2024. Urology consulted and will consider stent exchange while inpatient after a few days of antibiotics (possibly ). History of urosepsis, bacteremia, pseudomonas, VRE in the past. Continue IV cefepime and daptomycin. Blood and urine cultures no growth so far. Afebrile and VSS. WBC 9.54 this morning. Pain management with tramadol q8hr PRN first line. Oxycodone q6hr PRN second line. Continue tamsulosin 0.4mg qhs for stent discomfort. 12/12 afebrile Urine culture urine: Negative Blood cultures: Negative For ureteral stent exchange tomorrow Continue daptomycin plus cefepime Consult ID for antibiotic recommendations Chronic hypoxemic respiratory failure Interstitial lung disease Chronic, stable. On 2-3L NC while resting and 4L NC while ambulating per baseline. DMII Chronic, stable. Hgb A1C 6.8. Long-acting insulin and sliding scale. Pharmacy consult. HTN Chronic, stable. Continue lasix. HLD Chronic, stable. Continue aspirin. Chronic diastolic CHF Chronic, stable. Continue lasix. Follows with Cardiology. History of PE, recurrent DVTs Doppler negative for DVT. Continue Eliquis and Plavix. CKD stage III BUN 26 and creatinine 1.96 this morning. Baseline creatinine around 1.6. Monitor labs. Fibromyalgia Chronic, stable. Continue duloxetine and gabapentin. Depression, anxiety Chronic, stable. Continue clonazepam and trazodone. RLS Chronic, stable. Continue ropinirole. Hypothyroidism Chronic, stable. Continue levothyroxine. GERD Chronic, stable. Continue pantoprazole. DVT Prophylaxis: on Eliquis and Plavix. Code Status: FULL CODE PCP: Dr. Galdino Andujar, Disposition: Not medically cleared for discharge. Possible stent exchange on . Admission and Anticipated Discharge Date Admission Date: December 09, 2024 Subjective Follow-up for UTI, in the setting of ureteral stents, etc. Seen resting in bed side chair, comfortable, not in distress States she feels okay overall Lower abdominal pain improving, no flank or back pain Denies problem with urination Having some nausea No fevers or chills No other new symptoms Review of Systems Review of Systems: all noted and negative except for above Physical Exam Physical Exam: General- oriented x 3, not in distress, speaks in sentences with no effort or accessory muscle use Eyes- anicteric Neck- no JVD Lungs- clear breath sounds bilaterally, no rales/wheezes Heart- normal rate, regular rhythm; no murmurs Abdomen- normal bowel sounds, nondistended, soft, nontender No CVA tenderness Extremities- no pretibial edema, no calf tenderness Neuro- alert, oriented x 3; no gross focal neurologic deficits Skin- warm & dry Results & Data Results & Data Vital Signs (Past 12 Hours) Vital Signs Temp Pulse Pulse Resp BP Pulse Ox O2 Del Method 12/12/24 15:06 36.3 C L 84 20 126/77 96 Room Air 12/12/24 13:00 88 12/12/24 11:56 36.6 C 82 16 112/62 99 Nasal Cannula 12/12/24 08:07 36.8 C 79 16 124/68 99 Nasal Cannula 12/12/24 07:44 Nasal Cannula 12/12/24 05:58 77 O2 Flow Rate 12/12/24 15:06 12/12/24 13:00 12/12/24 11:56 3 12/12/24 08:07 3 12/12/24 07:44 3 03/19/25 05:58 all noted and reviewed including below (3) Chronic respiratory failure Respiratory failure complication: hypoxia Qualified Code(s): J96.11 - Chronic respiratory failure with hypoxia (5) HTN (hypertension) Hypertension type: primary hypertension Qualified Code(s): I10 - Essential (primary) hypertension (10) CKD (chronic kidney disease), stage III Chronic kidney disease stage 3 subtype: unspecified whether 3a or 3b Qualified Code(s): N18.30 - Chronic kidney disease, stage 3 unspecified (14) Hypothyroidism Hypothyroidism type: unspecified Qualified Code(s): E03.9 - Hypothyroidism, unspecified
[2024-12-12] MEDS: LANTUS PER UNIT CHARGE SQ SCH (21:30)
[2024-12-13 07:11] LABS: Hematocrit (blood only) 35.3 % (37.0-47.0); Mean Corpuscular Hgb Conc 31.2 g/dL (32.0-36.0); Mean Corpuscular Volume 93.1 fL (80.0-100.0); Mean Platelet Volume 9.4 fL (9.4-12.4); Platelet Count 296 K/uL (130-400); RDW Coefficient of Variation 13.9 % (11.5-14.5); RDW Standard Deviation 47.1 fL (36.4-46.3); Red Blood Count 3.79 M/uL (4.20-5.40); White Blood Count 10.72 K/ul (4.8-10.8)
[2024-12-13 07:32] LABS: BUN Creatinine Ratio 16.1 (10-20); Calcium 9.2 mg/dl (8.6-10.3); Creatinine Clr Calc Pharmacy 39.3 ml/min; Potassium 4.1 mmol/L (3.5-5.1)
--- NOTE | 2024-12-13 08:28 | Hospitalist Progress Note ---
Date of Service December 13, 2024 Assessment & Plan (1) Bilateral flank pain: (2) Acute UTI (urinary tract infection): (3) Chronic respiratory failure: (4) Diabetes: (5) HTN (hypertension): (6) HLD (hyperlipidemia): (7) Chronic diastolic heart failure: (8) History of pulmonary embolism: (9) History of DVT (deep vein thrombosis): (10) CKD (chronic kidney disease), stage III: (11) Fibromyalgia: (12) Depression with anxiety: (13) RLS (restless legs syndrome): (14) Hypothyroidism: (15) GERD (gastroesophageal reflux disease): Plan 69 year old female with PMH significant for DMII, HTN, HLD, CKD stage III, chronic hypoxemic respiratory failure on home O2, interstitial lung disease, chronic diastolic CHF, history of PE s/p IVC green filter, recurrent DVTs on Eliquis, venous insufficiency, postsurgical hypothyroidism, depression, anxiety, GERD, fibromyalgia, RLS, and recurrent UTIs who presented to the ED on 12/09 with bilateral flank and lower abdominal pain found to have a UTI. Bilateral flank pain Acute UTI Patient is s/p right ureteral stent in November 2023 that was exchanged in April 2024. History of urosepsis, bacteremia, pseudomonas, VRE in the past. Afebrile and VSS. WBC 10.7 this morning. Pain management with tramadol q8hr PRN first line. Oxycodone q6hr PRN second line. Continue tamsulosin 0.4mg qhs for stent discomfort. Continue IV cefepime and daptomycin. Blood cultures no growth so far. Urine culture final with more than 3 types of organisms present, all high counts. Recollect urine culture. OR today for stent exchange. Chronic hypoxemic respiratory failure Interstitial lung disease Chronic, stable. On 2-3L NC while resting and 4L NC while ambulating per baseline. DMII Chronic, stable. Long-acting insulin and sliding scale. Pharmacy consult. HTN Chronic, stable. Continue lasix. HLD Chronic, stable. Continue aspirin. Chronic diastolic CHF Chronic, stable. Continue lasix. Follows with Cardiology. History of PE, recurrent DVTs Doppler negative for DVT. Continue Eliquis and Plavix. CKD stage III BUN 29 and creatinine 1.8 this morning. Baseline creatinine around 1.6. Monitor labs. Fibromyalgia Chronic, stable. Continue duloxetine and gabapentin. Depression, anxiety Chronic, stable. Continue clonazepam and trazodone. RLS Chronic, stable. Continue ropinirole. Hypothyroidism Chronic, stable. Continue levothyroxine. GERD Chronic, stable. Continue pantoprazole. DVT Prophylaxis: on Eliquis and Plavix. Code Status: FULL CODE PCP: Dr. Galdino Andujar, DO Disposition: Likely discharge tomorrow pending stent exchange goes well today. Patient seen in collaboration with Dr. Gr. Please see addendum. I spent a total of 50 minutes coordinating, documenting and providing care for this patient excluding time spent in the performance of separately billed services or time spent by another provider/QHP. Admission and Anticipated Discharge Date Admission Date: December 09, 2024 Supervising Physician Co-Signing Physician Notes Attending Addendum: Case reviewed with the advanced practitioner. I have personally performed a history and physical examination on the patient. I have reviewed the advanced practitioner's documentation on the date of service referenced in note, and I agree with, and take responsibility for the plan of care. please refer to her notes for full details patient seen and examined, records reviewed by myself as well diagnoses and plan of care as per advanced practitioner's notes I spent a total of 35 minutes coordinating, documenting, and providing care for this patient, excluding time spent in the performance of separately billed services or time spent by another provider/QHP. Juan Gr MD Subjective Patient seen sitting up in bed States she is doing well this morning Complains of low back pain and chronic leg pain Denies fevers, chills, chest pain, SOB, abdominal pain, flank pain, dysuria, vaginal itching, N/V/D Currently NPO for stent exchange in OR today Review of Systems Review of Systems: All systems reviewed & are unremarkable except as noted in HPI & below Physical Exam Physical Exam: VITALS: Reviewed and VSS. On 2-3L NC per baseline. GEN: Healthy appearing, obese female, NAD. PSYCH: Good Judgment. AOx3. Normal memory, mood, and affect. HEENT: Head NC/AT. Sclera white and conjunctiva pink. Nares without rhinorrhea. Nasal and oral mucosa pink. NECK: Supple, with no masses. CV: RRR, no m/r/g. LUNGS: CTAB, no w/r/c. ABD: Soft, NT/ND, NBS, no masses or organomegaly, no flank pain SKIN: Warm, well perfused. No skin rashes or abnormal lesions. MSK: No deformities, Normal gait. EXT: No clubbing, cyanosis, or edema. NEURO: OOB to chair. Normal muscle strength and tone. No focal deficits. Results & Data Results & Data Vital Signs (Past 12 Hours) Vital Signs Temp Pulse Pulse Pulse Resp BP Pulse Ox 12/13/24 07:50 36.6 C 82 18 97/67 L 96 12/13/24 07:47 12/13/24 05:53 79 12/13/24 04:00 36.7 C 77 18 93/57 L 93 12/12/24 23:15 36.6 C 75 18 123/61 95 12/12/24 21:59 77 12/12/24 21:15 O2 Del Method O2 Flow Rate 12/13/24 07:50 Nasal Cannula 3 12/13/24 07:47 Nasal Cannula 3 12/13/24 05:53 12/13/24 04:00 Nasal Cannula 3 12/12/24 23:15 Nasal Cannula 3 12/12/24 21:59 12/12/24 21:15 Nasal Cannula 3 Laboratory Results Short CBC 12/13/24 Range/Units 06:29 WBC 10.72 (4.8-10.8) K/ul Hgb 11.0 L (12.0-16.0) g/dl Hct 35.3 L (37.0-47.0) % Plt Count 296 (130-400) K/uL BMP 12/13/24 06:29 Sodium 139 Potassium 4.1 Chloride 100 Carbon Dioxide 32 BUN 29 H Creatinine 1.80 H Glucose 143 H Calcium 9.2 I have independently reviewed and interpreted patient's admitting labs including CBC and BMP. Medications Administered Current Inpatient Medications Apixaban (Apixaban 2.5 Mg Tab) 2.5 mg PO BID ROBERT Stop: 01/09/25 08:59 Last Admin: 12/13/24 08:39 Dose: 2.5 mg Aspirin (Aspirin 81 Mg Ectab) 81 mg PO QAM ROBERT Stop: 01/09/25 08:59 Last Admin: 12/13/24 08:38 Dose: 81 mg Clonazepam (Clonazepam 0.5 Mg Tab) 0.5 mg PO TID ROBERT Stop: 01/09/25 08:59 Last Admin: 12/13/24 08:38 Dose: 0.5 mg Clopidogrel Bisulfate (Clopidogrel Bisulfate 75 Mg Tab) 75 mg PO QAM [facility] Stop: 01/09/25 08:59 Last Admin: 12/13/24 08:39 Dose: 75 mg Dextrose (Dextrose 50% 50 Ml Syringe) 25 - 50 ml IV UD PRN; Protocol PRN Reason: Hypoglycemia Protocol Stop: 01/09/25 00:34 Dicyclomine HCl (Dicyclomine Hcl 20 Mg Tab) 20 mg PO QID PRN PRN Reason: abdominal cramping Stop: 01/09/25 00:34 Last Admin: 12/12/24 08:22 Dose: 20 mg Duloxetine HCl (Duloxetine Hcl 60 Mg Cap) 60 mg PO QAM [facility] Stop: 01/09/25 08:59 Last Admin: 12/13/24 08:38 Dose: 60 mg Fluticasone Propionate (Fluticasone Propionate Na Spr 16 Gm Btl) 2 sprays NA AMHS [facility] Stop: 01/09/25 08:59 Last Admin: 12/13/24 08:37 Dose: 2 sprays Furosemide (Furosemide 20 Mg Tab) 60 mg PO BID17 [facility] Stop: 01/09/25 08:59 Last Admin: 12/13/24 08:39 Dose: 60 mg Gabapentin (Gabapentin 300 Mg Cap) 300 mg PO AMHS [facility] Stop: 01/09/25 08:59 Last Admin: 12/13/24 08:39 Dose: 300 mg Glucagon (Glucagon For Inj 1 Mg Vial) 1 mg SQ UD PRN; Protocol PRN Reason: Hypoglycemia Protocol Stop: 01/09/25 00:34 Glucose (Glucose 40% Gel 15 Gm Tube) 15 - 30 gm PO UD PRN; Protocol PRN Reason: Hypoglycemia Protocol Stop: 01/09/25 00:34 Glucose (Glucose 10 Tab/Tube) 4 - 8 tab PO UD PRN; Protocol PRN Reason: Hypoglycemia Protocol Stop: 01/09/25 00:34 Cefepime HCl (Maxipime 2000mg) 2,000 mg in 20 mls @ 5 mls/min IV Q12H ROBERT; Protocol Stop: 12/20/24 01:59 Last Admin: 12/13/24 02:13 Dose: 5 mls/min Daptomycin 850 mg/ Syringe 17 mls @ 8.5 mls/min IV Q24H [facility]; Protocol Stop: 12/20/24 21:59 Last Admin: 12/12/24 21:53 Dose: 8.5 mls/min Insulin Aspart (Insulin Aspart Per Unit Charge) 0 units SC ACHS [facility] Stop: 01/09/25 20:59 Last Admin: 12/13/24 08:36 Dose: Not Given Insulin Glargine (Lantus Per Unit Charge) 0 units SQ HS [facility]; Protocol Stop: 01/09/25 20:59 Last Admin: 12/12/24 21:30 Dose: 10 units Levothyroxine Sodium (Levothyroxine Sodium 200 Mcg Tablet) 200 mcg PO DAILYBB [facility] Stop: 01/09/25 06:29 Last Admin: 12/13/24 05:57 Dose: 200 mcg Magnesium Oxide (Magnesium Oxide 400 Mg Tab) 400 mg PO BID [facility] Stop: 01/09/25 08:59 Last Admin: 12/13/24 08:39 Dose: 400 mg Miscellaneous (Carbohydrates For Hypoglycemia ) 15 - 30 gm PO UD PRN PRN Reason: Hypoglycemia Protocol Stop: 01/09/25 00:34 Miscellaneous Information (Pharmacy Glycemic Mgmt Consult) 1 each N/A UD PRN PRN Reason: Consult Stop: 01/09/25 00:34 Nitroglycerin (Nitroglycerin Sl 0.4 Mg/Tab Tab) 0.4 mg SL Q5M PRN PRN Reason: Chest Pain Stop: 01/09/25 00:34 Ondansetron HCl (Ondansetron Inj 2 Mg/Ml 2 Ml Vial) 4 mg IV Q6H PRN PRN Reason: Nausea Stop: 01/09/25 00:34 Last Admin: 12/12/24 13:30 Dose: 4 mg Oxycodone HCl (Oxycodone Hcl Ir 5 Mg Tab (Immediate Release)) 5 mg PO Q6 PRN PRN Reason: Mod/Sev (6-10) Pain Stop: 12/24/24 11:43 Last Admin: 12/11/24 23:19 Dose: 5 mg Pantoprazole Sodium (Pantoprazole 40 Mg Tab) 40 mg PO QAM [facility] Stop: 01/09/25 08:59 Last Admin: 12/13/24 08:39 Dose: 40 mg Polyethylene Glycol (Polyethylene (Miralax) 17 Gm Pack) 17 gm PO DAILY PRN PRN Reason: Constipation Stop: 01/09/25 00:34 Last Admin: 12/12/24 13:30 Dose: 17 gm Potassium Chloride (Potassium Chloride Crtab 20 Meq Tabcr) 20 meq PO BID ROBERT Stop: 01/09/25 08:59 Last Admin: 12/13/24 08:37 Dose: 20 meq Ropinirole HCl (Ropinirole Hcl 2 Mg Tablet) 2 mg PO HS ROBERT Stop: 01/09/25 20:59 Last Admin: 12/12/24 21:21 Dose: 2 mg Senna/Docusate Sodium (Docusate Sodium/Senna 50/8.6mg Tab) 1 tab PO BID ROBERT Stop: 01/09/25 08:59 Last Admin: 12/13/24 08:38 Dose: 1 tab Tamsulosin HCl (Tamsulosin Hcl 0.4 Mg Cap) 0.4 mg PO HS ROBERT Stop: 01/09/25 20:59 Last Admin: 12/12/24 21:21 Dose: 0.4 mg Tizanidine HCl (Tizanidine Hcl 4 Mg Tablet) 4 mg PO Q6 PRN PRN Reason: Muscle Spasm Stop: 01/09/25 00:34 Last Admin: 12/12/24 21:21 Dose: 4 mg Tramadol HCl (Tramadol Hcl 50 Mg Tablet) 50 mg PO Q8 PRN PRN Reason: Pain Stop: 01/09/25 00:34 Last Admin: 12/13/24 09:27 Dose: 50 mg Trazodone HCl (Trazodone Hcl 50 Mg Tab) 50 mg PO HS ROBERT Stop: 01/09/25 20:59 Last Admin: 12/12/24 21:21 Dose: 50 mg Vitamin D (Cholecalciferol 25 Mcg (1000 Units) Tab) 25 mcg PO DAILY ROBERT Stop: 01/09/25 08:59 Last Admin: 12/13/24 08:38 Dose: 25 mcg (3) Chronic respiratory failure Respiratory failure complication: hypoxia Qualified Code(s): J96.11 - Chronic respiratory failure with hypoxia (5) HTN (hypertension) Hypertension type: primary hypertension Qualified Code(s): I10 - Essential (primary) hypertension (10) CKD (chronic kidney disease), stage III Chronic kidney disease stage 3 subtype: unspecified whether 3a or 3b Qualified Code(s): N18.30 - Chronic kidney disease, stage 3 unspecified (14) Hypothyroidism Hypothyroidism type: unspecified Qualified Code(s): E03.9 - Hypothyroidism, unspecified
--- NOTE | 2024-12-13 09:39 | Urology Progress Note ---
<Statement entered by Al Arriaga MD - 12/13/24 13:18> We will plan on cystoscopy, right retrograde pyelogram and right ureteral stent placement as her stent is due for exchange. Date of Service December 13, 2024 Assessment & Plan (1) Complicated urinary tract infection: (2) Ureteral stent retained: (3) Hydronephrosis: Plan: 69 yo/F with history of right hydronephrosis managed with right ureteral stent exchanges (last exchanged 04/26/24) admitted for complicated UTI. Patient is afebrile and hemodynamically stable Labs today reviewedcreatinine 1.8, WBC 10.72, Hgb 11.0 Blood cultures with no growth to date Urine culture with 3 types of organisms present, all high counts She has remained on broad-spectrum antibiotics since admission Proceed with cystoscopy and right ureteral stent exchange today Keep NPO for procedure Continue antibiotics and supportive care Admission and Anticipated Discharge Date Admission Date: December 09, 2024 Subjective Patient seen and examined at bedside. She is awake and sitting up at the side back. Reports some right flank discomfort. No fever or chills. Review of Systems Constitutional: as per Subjective / HPI Genitourinary: as per Subjective / HPI Physical Exam Constitutional: no acute distress Respiratory: normal respiratory effort; no respiratory distress and no labored breathing supplemental oxygen in place Gastrointestinal (Abdomen): Inspection/Auscultation: abdomen normal to inspection Musculoskeletal: Head/Neck/Chest: normocephalic Neurologic: moves all extremities and awake Psychiatric: Orientation: alert and oriented x 3 Results & Data Vital Signs (Past 12 Hours) Vital Signs Temp Pulse Pulse Pulse Resp BP Pulse Ox 12/13/24 07:50 36.6 C 82 18 97/67 L 96 12/13/24 07:47 12/13/24 05:53 79 12/13/24 04:00 36.7 C 77 18 93/57 L 93 12/12/24 23:15 36.6 C 75 18 123/61 95 12/12/24 21:59 77 O2 Del Method O2 Flow Rate 12/13/24 07:50 Nasal Cannula 3 12/13/24 07:47 Nasal Cannula 3 12/13/24 05:53 12/13/24 04:00 Nasal Cannula 3 12/12/24 23:15 Nasal Cannula 3 12/12/24 21:59 PG Care Time/CCT Total # of Minutes Spent Total Time Spent with Patient: Total time spent is greater than 50% in coordination of care (as documented) at patient's floor/unit and/or counseling patient: Coding Level of Care Code 37442 SUB INP/OBS CARE 10/20MIN Diagnoses Complicated urinary tract infection N39.0 Ureteral stent retained Z96.0 Hydronephrosis N13.30 Hydronephrosis type: unspecified (3) Hydronephrosis Hydronephrosis type: unspecified Qualified Code(s): N13.30 - Unspecified hydronephrosis
--- NOTE | 2024-12-13 11:57 | Pharmacy Report ---
Pharmacy Glycemic Short Note 2 - Date of Service December 13, 2024 - Glycemic Short BSG Results (Last 24 hours): 12/12/24 12/12/24 12/13/24 16:56 20:08 06:29 Glucose 143 H POC Glucose 124 H 133 H 12/13/24 11:45 Glucose POC Glucose 146 H OUTPATIENT ANTIDIABETIC REGIMEN: * Tresiba 41 units SC PM * Novolog 40-45 units SC AC + SSI (CF 25) * Mounjaro 7.5 mg SC every Tuesday HbA1c: * 6.8% (12/10/24) ASSESSMENT: 12/13/24: * NPO today for cystoscopy w/ ureteral stent exchange * Blood sugars well-controlled yesterday, ranging 124-150 mg/dL * Received 37 units of insulin (10 units of basal and 27 units of prandial/correctional bolus) * Do not anticipate any changes to glycemic regimen today 12/11/24: * Blood sugars well-controlled yesterday, ranging 96-122 mg/dL w/ fasting blood sugar of 147 mg/dL this morning * Received 20 units of insulin (50/50 basal bolus split) * Do not anticipate any changes to glycemic regimen today 12/10/24: * 69 yo F admitted on 12/10/24 secondary to possible UTI. Pharmacy has been consulted to assist with inpatient glycemic management. Patient is a Type 2 diabetic as an outpatient. Please refer to outpatient regimen and most recent HbA1c above. * Patient was NPO for most of the morning but now a T2DM diet was started with lunch. On daptomycin and cefepime for UTI. * BSGs this morning were 110-99-96 mg/dL. Based on previous admissions, patient has tolerated 12 units of basal at bedtime while eating. Will start with 10 units basal tonight. Novolog parameters based on previous admission data as well. PLAN FOR INPATIENT GLYCEMIC CONTROL: * Basal insulin * Lantus 8-10 units SC HS (see EHR for details) * Bolus insulin * NovoLog per scale ACHS or Q6hrs while NPO * Goal Range: Low 110 mg/dL - High 140 mg/dL * Correction Factor: 20 mg/dL/unit * Nutritional / Prandial insulin per carb ratio of 1 unit per 7 grams CHO consumed
[2024-12-13] MEDS ORDERED: PROPOFOL IV EMULSION 10 MG/ML 20 ML VIAL IV ONE (12:30)
[2024-12-13] MEDS ORDERED: MIDAZOLAM HCL 1 MG/ML 2ML VIAL ONE (12:30)
[2024-12-13] MEDS ORDERED: fentaNYL citrate PF 100 MCG/2 ML VIAL ONE (12:30)
[2024-12-13] MEDS: LACTATED RINGER'S 1,000 ML IV SCH (13:30)
--- NOTE | 2024-12-13 13:54 | Anesthesiology Consultation ---
Date of Service December 13, 2024 Assessment & Plan Chart Review Chart Review: Acceptable Risk for Surgery and Patient NOT seen in Pre Admission Testing Consults Requested none ASA ASA4 Proposed Anesthesia Anesthesia Type: MAC Risk / Benefits Reviewed With: PT / POA / Parent / Guardian, Accepts Plan and Informed Consent Obtained History Surgery Operation Date: 12/13/24 14:25 Proposed Procedures p Cystoscopy, Right Ureteral Stent Exchange - Al Arriaga MD Height/Weight Height: 5 ft 5 in Weight: 125.4 kg Allergies Allergy/AdvReac Type Severity Reaction Status Date / Time morphine Allergy Severe Swelling, Verified 12/09/24 22:49 "Violent reaction- almost " dapagliflozin [From Farxiga] Allergy Intermediate Yeast Verified 12/09/24 22:49 infections tetanus toxoid, adsorbed Allergy Intermediate Passed Verified 12/09/24 22:49 out, "got sick" as child bupropion [From Wellbutrin] AdvReac Intermediate Recurrent Verified 12/09/24 22:49 falls as per patient codeine AdvReac Intermediate Hallucinati Verified 12/09/24 22:49 ons empagliflozin AdvReac Intermediate Yeast Verified 12/09/24 22:49 [From Jardiance] infections heparin AdvReac Intermediate HIT, Verified 12/09/24 22:49 "Fluid in lungs" hydrocodone [From Vicodin] AdvReac Intermediate Drowsy Verified 12/09/24 22:49 Medications Home Medications Medication Instructions Recorded Confirmed Last Taken aspirin 81 mg tablet,delayed 81 mg PO QAM 09/20/23 12/09/24 04/25/24 13:00 release clonazepam 0.5 mg tablet 0.5 mg PO TID 09/20/23 12/09/24 04/25/24 20:30 furosemide 40 mg tablet 60 mg PO BID 09/20/23 12/09/24 04/25/24 21:00 magnesium oxide 400 mg (241.3 mg 400 mg PO BID 09/20/23 12/09/24 04/25/24 21:00 magnesium) tablet omeprazole 20 mg capsule,delayed 20 mg PO QAM 09/20/23 12/09/24 04/25/24 13:00 release potassium chloride 20 mEq 20 meq PO BID 09/20/23 12/09/24 04/25/24 21:00 tablet,extended release(part/cryst) ropinirole 2 mg tablet 2 mg PO HS 12/26/23 03/16/25 07/31/24 21:00 sennosides 8.6 mg-docusate sodium 1 tab PO BID 09/20/23 12/09/24 04/25/24 21:00 50 mg tablet (Senna-Time S) tramadol 50 mg tablet 50 mg PO Q8 PRN Pain 09/20/23 12/09/24 04/25/24 15:00 apixaban 2.5 mg tablet (Eliquis) 2.5 mg PO BID 10/24/23 12/09/24 04/25/24 21:00 dicyclomine 20 mg tablet 20 mg PO QID PRN abdominal cramping 10/24/23 12/09/24 04/25/24 18:00 levothyroxine 200 mcg tablet 200 mcg PO DAILYBB #30 tabs 12/07/23 12/09/24 04/25/24 13:00 cholecalciferol (vitamin D3) 25 25 mcg PO QAM 01/16/24 12/09/24 04/25/24 13:00 mcg (1,000 unit) tablet clopidogrel 75 mg tablet 75 mg PO QAM 01/16/24 12/09/24 04/25/24 13:00 duloxetine 60 mg capsule,delayed 60 mg PO [facility] 12/09/24 12/09/24 Unknown release fluticasone propionate 50 2 spray intranasal [facility] 12/09/24 12/09/24 Unknown mcg/actuation nasal spray,suspension gabapentin 300 mg capsule 300 mg PO [facility] 12/09/24 12/09/24 Unknown insulin aspart U-100 100 unit/mL See Rx Instructions .Route .COMPLEX 12/09/24 12/09/24 Unknown (3 mL) subcutaneous pen (Novolog FlexPen U-100 Insulin aspart) insulin degludec 100 unit/mL (3 41 unit subcut QPM 12/09/24 12/09/24 Unknown mL) subcutaneous pen (Tresiba FlexTouch U-100 insulin) rosuvastatin 5 mg tablet 5 mg PO QAM 12/09/24 12/09/24 Unknown tirzepatide 7.5 mg/0.5 mL 7.5 mg subcut WK 12/09/24 12/09/24 Unknown subcutaneous pen injector (Mounjaro) tizanidine 4 mg tablet 4 mg PO Q6 PRN Muscle Spasm 12/09/24 12/09/24 Unknown trazodone 50 mg tablet 50 mg PO HS 12/09/24 12/09/24 Unknown Active Medications Generic Name Dose Route Start Last Admin Trade Name Freq PRN Reason Stop Dose Admin Apixaban 2.5 mg 12/10/24 09:00 12/13/24 08:39 Apixaban 2.5 Mg Tab PO 01/09/25 08:59 2.5 mg BID ROBERT Administration Aspirin 81 mg 12/10/24 09:00 12/13/24 08:38 Aspirin 81 Mg Ectab PO 01/09/25 08:59 81 mg QAM ROBERT Administration Clonazepam 0.5 mg 12/10/24 09:00 12/13/24 13:09 Clonazepam 0.5 Mg Tab PO 01/09/25 08:59 Not Given TID ROBERT Clopidogrel Bisulfate 75 mg 12/10/24 09:00 12/13/24 08:39 Clopidogrel Bisulfate 75 Mg Tab PO 01/09/25 08:59 75 mg QAM ROBERT Administration Dicyclomine HCl 20 mg 12/10/24 00:35 12/12/24 08:22 Dicyclomine Hcl 20 Mg Tab PO 01/09/25 00:34 20 mg QID PRN Administration abdominal cramping Duloxetine HCl 60 mg 12/10/24 09:00 12/13/24 08:38 Duloxetine Hcl 60 Mg Cap PO 01/09/25 08:59 60 mg QAM ROBERT Administration Fluticasone Propionate 2 sprays 12/10/24 09:00 12/13/24 08:37 Fluticasone Propionate Na Spr 16 Gm Btl NA 01/09/25 08:59 2 sprays [facility] ROBERT Administration Furosemide 60 mg 12/10/24 09:00 12/13/24 08:39 Furosemide 20 Mg Tab PO 01/09/25 08:59 60 mg [id number] ROBERT Administration Gabapentin 300 mg 12/10/24 09:00 12/13/24 08:39 Gabapentin 300 Mg Cap PO 01/09/25 08:59 300 mg AMHS ROBERT Administration Cefepime HCl 2,000 mg in 20 mls @ 5 mls/min 12/10/24 02:00 12/13/24 13:09 Maxipime 2000mg IV 12/20/24 01:59 5 mls/min Q12H ROBERT Administration Protocol Daptomycin 850 mg/ Syringe 17 mls @ 8.5 mls/min 12/10/24 22:00 12/12/24 21:53 IV 12/20/24 21:59 8.5 mls/min Q24H ROBERT Administration Protocol Lactated Ringer's 1,000 mls @ 15 mls/hr 12/13/24 13:30 12/13/24 13:30 Lr IV 12/14/24 13:29 15 mls/hr .Q24H ROBERT Administration Insulin Aspart 0 units 12/10/24 21:00 12/13/24 11:46 Insulin Aspart Per Unit Charge SC 01/09/25 20:59 Not Given ACHS [facility] Insulin Glargine 0 units 12/12/24 21:00 12/12/24 21:30 Lantus Per Unit Charge SQ 01/09/25 20:59 10 units HS ROBERT Administration Protocol Levothyroxine Sodium 200 mcg 12/10/24 06:30 12/13/24 05:57 Levothyroxine Sodium 200 Mcg Tablet PO 01/09/25 06:29 200 mcg DAILYBB ROBERT Administration Magnesium Oxide 400 mg 12/10/24 09:00 12/13/24 08:39 Magnesium Oxide 400 Mg Tab PO 01/09/25 08:59 400 mg BID ROBERT Administration Ondansetron HCl 4 mg 12/10/24 00:35 12/12/24 13:30 Ondansetron Inj 2 Mg/Ml 2 Ml Vial IV 01/09/25 00:34 4 mg Q6H PRN Administration Nausea Oxycodone HCl 5 mg 12/10/24 11:44 12/11/24 23:19 Oxycodone Hcl Ir 5 Mg Tab (Immediate Release) PO 12/24/24 11:43 5 mg Q6 PRN Administration Mod/Sev (6-10) Pain Pantoprazole Sodium 40 mg 12/10/24 09:00 12/13/24 08:39 Pantoprazole 40 Mg Tab PO 01/09/25 08:59 40 mg QAM ROBERT Administration Polyethylene Glycol 17 gm 12/10/24 00:35 12/12/24 13:30 Polyethylene (Miralax) 17 Gm Pack PO 01/09/25 00:34 17 gm DAILY PRN Administration Constipation Potassium Chloride 20 meq 12/10/24 09:00 12/13/24 08:37 Potassium Chloride Crtab 20 Meq Tabcr PO 01/09/25 08:59 20 meq BID ROBERT Administration Ropinirole HCl 2 mg 12/10/24 21:00 12/12/24 21:21 Ropinirole Hcl 2 Mg Tablet PO 01/09/25 20:59 2 mg HS ROBERT Administration Senna/Docusate Sodium 1 tab 12/10/24 09:00 12/13/24 08:38 Docusate Sodium/Senna 50/8.6mg Tab PO 01/09/25 08:59 1 tab BID ROBERT Administration Tamsulosin HCl 0.4 mg 12/10/24 21:00 12/12/24 21:21 Tamsulosin Hcl 0.4 Mg Cap PO 01/09/25 20:59 0.4 mg HS ROBERT Administration Tizanidine HCl 4 mg 12/10/24 00:35 12/12/24 21:21 Tizanidine Hcl 4 Mg Tablet PO 01/09/25 00:34 4 mg Q6 PRN Administration Muscle Spasm Tramadol HCl 50 mg 12/10/24 00:35 12/13/24 09:27 Tramadol Hcl 50 Mg Tablet PO 01/09/25 00:34 50 mg Q8 PRN Administration Pain Trazodone HCl 50 mg 12/10/24 21:00 12/12/24 21:21 Trazodone Hcl 50 Mg Tab PO 01/09/25 20:59 50 mg HS ROBERT Administration Vitamin D 25 mcg 12/10/24 09:00 12/13/24 08:38 Cholecalciferol 25 Mcg (1000 Units) Tab PO 01/09/25 08:59 25 mcg DAILY ROBERT Administration NPO Date Last Intake of Fluids: 12/12/24 Time Last Intake of Fluids: 18:00 Last Intake of Fluids Comment: 0900 sip water w/ meds Date Last Intake of Solids: 12/12/24 Time Last Intake of Solids: 18:00 Past Medical History Medical History Subclavian arterial stenosis (06/2023) Cerebrovascular duplex study 06/2023: Retrograde flow in the right vertebral artery. 50-69% proximal right subclavian artery stenosis. Antegrade flow in the left vertebral artery. Normal flow in the left subclavian artery. Hx of pulmonary edema Pickwickian syndrome Orthostasis Lumbago with sciatica Left knee DJD Hx of hydronephrosis Hyperlipemia Hypertension HIT (heparin-induced thrombocytopenia) (2008) hx - [facility] then life flight to [facility] > "resolved" Deep vein thrombosis (DVT) Recurrent per records On Eliquis Initially occurred during ICU [facility] admission, s/p zoraida filter [address] Right LE doppler 11/2023 showed no DVT within right LE Hepatosplenomegaly Hx of fracture radius Depression with anxiety Chronic diastolic (congestive) heart failure follos with Dr. 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) VRE UTI during inpatient admit at [facility] Hx of Clostridium difficile infection (12/2023) during inpatient admit to [facility], treated, no current sx Hx of constipation Hx of vertigo occasional Hx: UTI (urinary tract infection) frequent Hx of fall (11/2023) last fall was November 2023 - no injuries Diabetes IDDM ELISSA on CPAP CPAP + 3L O2 (O2 is continuous) Hx of septic shock (12/2023) due to UTI - admit to [facility] Presence of IVC filter (2008) [facility], continues to be in place due to current clots behind right knee Hx pulmonary embolism (2008) s/p zoraida filter GERD (gastroesophageal reflux disease) RLS (restless legs syndrome) History of pneumonia (2008) x 8 weeks, [facility] then tx to [facility], "put me in a coma, flew me to [facility], had a trach then went to [facility] with trach" Trach removed Sep 2009 Fibromyalgia Hypothyroidism Hx of pyelonephritis (12/2023) CKD (chronic kidney disease), stage III follows [facility] Nephrology Hx of congestive heart failure takes lasix, sees Dr. Jose C Garcia Chronic hypoxemic respiratory failure O2 3-4L at all times - sees Pulailyn @ [facility] Transient hypotension Mitral valve stenosis Mild per cardio records (due to severe calcification) Echo 06/2023: Borderline mild mitral stenosis secondary to severe mitral annular calcification, follows [facility] cardio Dr. Woodall Cataract, bilateral Neuropathy feet On home oxygen therapy 3-4L continuous Exercise / Class Metabolic Activity II 4-5 Yardwork/Stairs/Walk up hill Past Family History Family History Father , age 74 Lung cancer Mother , age 45 Cirrhosis Past Surgical History Surgical History History of colon resection (2008) secondary to R colon perforation, resected treated with colostomy and eventual reversal in 2008 Hx of tracheostomy (06/2009) (per [facility] records), secondary to acute respiratory failure in setting of PNA, reversed a few months later in 2009 Hx of cystoscopy (11/25/23) with stent placement right side due to infection History of transcarotid artery revascularization (TCAR) (08/2023) right, [facility] History of right knee joint replacement (Unknown) > 10 years Hx laparoscopic cholecystectomy Hx of thyroidectomy (2011) total Family history of reaction to anesthesia Brother/niece- PONV Brother- "wakes up violent" History of colostomy reversal (10/1997) History of tooth extraction History of arthroscopy (Unknown) left ankle , > 10 years History of incisional hernia repair Nausea and vomiting after administration of anesthetic agent History of colonoscopy Past Anesthesia History No Hx of Anesthesia Complications and No Family Hx of Anesthesia Complications History of PONV No Hx of PONV and No Hx of Motion Sickness Social History Smoking Status: Never smoker tobacco type: cigarettes Smoking cigarettes per day: 1997 Do You Dip or Chew Tobacco: No Hx Alcohol Use: No Alcohol type: wine alcohol intake frequency: holidays/special occasions only Hx Substance Use: No substance use type: does not use Physical Exam Vital Signs Last Vital Signs Temp 36.8 C 12/13/24 13:22 Pulse 86 12/13/24 13:22 Resp 18 12/13/24 13:22 BP 89/62 L 12/13/24 13:22 Pulse Ox 94 12/13/24 13:22 O2 Del Method Room Air 12/13/24 13:22 O2 Flow Rate 3 12/13/24 11:13 Constitutional + morbidly obese; no acute distress ENMT Mouth: + dentition abnormality and + poor dentition Thyromental Distance: < 3.5 Finger Breadths Mallampati Class: II Neck normal visual inspection and trachea midline; neck extension not limited Respiratory normal respiratory effort Auscultation: + diminished lung sounds Cardiovascular Rate/Rhythm: regular rate and regular rhythm Heart Sounds: no murmur Vessels: no carotid bruit Musculoskeletal Spine: normal cervical ROM and no pain with cervical ROM Extremities: extremities normal to inspection; full ROM of extremities Neurologic moves all extremities Motor/Sensory: no sensory deficit Psychiatric Orientation: alert and oriented x 3 Testing Laboratory Results 12/13/24 06:29 12/13/24 06:29 Hemoglobin A1c 6.8 % (4.5-5.6) H 12/10/24 06:42 Urine Color Yellow 12/09/24 19:32 Urine Appearance Cloudy (Clear) A 12/09/24 19:32 Urine pH 8.0 (4.5-7.5) H 12/09/24 19:32 Ur Specific [place] 1.008 (1.000-1.030) 12/09/24 19:32 Urine Protein 1+ (Negative) H 12/09/24 19:32 Urine Glucose (UA) Negative (Negative) 12/09/24 19:32 Urine Ketones Negative (Negative) 12/09/24 19:32 Urine Nitrite Negative (Negative) 12/09/24 19:32 Ur Leukocyte Esterase 3+ (Negative) H 12/09/24 19:32 Urine WBC (Auto) >50 /hpf (0-5) H 12/09/24 19:32 Urine RBC (Auto) >20 /hpf (0-2) H 12/09/24 19:32 U Hyaline Cast (Auto) 3-5 /lpf (0-2) H 12/09/24 19:32 U Epithel Cells (Auto) 0-2 /hpf (0-2) 12/09/24 19:32 Urine Bacteria (Auto) 2+ (None Seen) H 12/09/24 19:32 12/09/24 20:38 Aerobic Blood Culture - Preliminary Blood No growth in Aerobic bottle after 48 hours. Anaerobic Blood Culture - Final 12/09/24 20:38 Aerobic Blood Culture - Preliminary Blood No growth in Aerobic bottle after 48 hours. Anaerobic Blood Culture - Final 12/09/24 19:32 Urine Culture - Final Urine,Clean Catch More than three types of organisms present, all high counts. Repeat collection recommended. No further identifications or sensitivities to follow. 12/13/24 12/13/24 13:36 11:45 POC Glucose 114 H 146 H Electrocardiogram Date: 01/16/24 Findings: + ST @ (@ 102) Echocardiogram Date: 07/14/23 EF: 55% LV Function: normal RWMA: + none Valvular Disease: + MS severe MAC
[2024-12-13] MEDS ORDERED: ATROPINE SULFATE 0.1 MG/ML 10ML SYR IV PRN (13:56)
[2024-12-13] MEDS ORDERED: ePHEDrine sulfate 50 MG/ML AMP IV PRN (13:56)
[2024-12-13] MEDS ORDERED: KETAMINE HCL 10MG/ML SYR ONE (14:26)
[2024-12-13] MEDS: DIATRIZOATE MEGLUMINE 30% 100ML VIAL INSTIL ONE (14:47)
--- NOTE | 2024-12-13 14:56 | Operative Report ---
PG Post Operative Report Pre & Post Diagnosis Operation Date: 12/13/24 14:25 Pre-Op Diagnosis: Complicated urinary tract infection and Ureteral stent retained Post-Op Diagnosis: Complicated urinary tract infection and Ureteral stent retained I identified the patient and participated in the time-out.: Yes Procedure Operation Date: 12/13/24 14:25 Actual Procedures p Cystoscopy, Right Retrograde Pyelogram, Right Ureteral Stent Exchange(Right) - Al Arriaga MD Surgeon Al Arriaga MD Water Safety Instructor None Estimated Blood Loss 0 Findings Consistent with Post-Op Diagnosis Specimens None Drains 6 Somali x 24 cm double-J ureteral stent in the right ureter Anesthesia Type MAC Complications none Disposition Accompanied Patient To Recovery: Yes Disposition: Recovery Room Indications This is a 69-year-old female followed by urology for chronic right hydronephrosis, suspected UPJ obstruction. She is brought to the OR for right ureteral stent exchange. Description of Procedure The patient was identified in the holding area and informed consent was confirmed. She was marked on the right side, then was taken to the operating room where anesthesia was initiated. She was placed in the dorsal lithotomy position with all pressure points appropriately padded. She was prepped and draped in the usual sterile fashion and a preoperative timeout was performed. A well-lubricated cystoscope was inserted per urethra and panendoscopy was performed. The urethra was normal in appearance. Bladder appeared somewhat irritated. There was a stent in position in the right ureter. The stent was moderately encrusted. I inserted 0.038 inch zip wire alongside the stent up to the kidney under fluoroscopic guidance. The stent was then removed with a pair of stent graspers. A 5 Somali open-ended catheter was inserted and intubated into the right ureteral orifice alongside the wire. Using Cystografin, a retrograde pyelogram was performed. This established the contour of the renal pelvis. There was mild hydronephrosis. Over the wire, a 6 Somali x 24 centimeter double-J ureteral stent was advanced. When the wire was removed, the proximal curl was visualized in the kidney with x-ray, and the distal curl visualized in the bladder with the cystoscope. Contrast could be seen draining through the stent confirming good position. At this point the bladder was drained and all instrumentation was removed. The patient was then awakened from anesthesia and was brought to the PACU in stable condition. I attest to the content of the Intraoperative Record and any orders documented therein. Any exceptions are noted below.
--- NOTE | 2024-12-13 15:13 | Anesthesiology Progress Note ---
Date of Service December 13, 2024 Anesthesia Post Procedure Vital Signs Vital Signs: Temp Pulse Pulse Pulse Resp BP BP 12/13/24 15:10 86 13 130/87 12/13/24 15:00 86 16 139/97 12/13/24 14:52 36.9 C 90 15 140/85 12/13/24 13:22 36.8 C 86 18 89/62 L 12/13/24 12:59 78 12/13/24 11:13 36.8 C 77 20 128/87 12/13/24 07:50 36.6 C 82 18 97/67 L 12/13/24 07:47 12/13/24 05:53 79 12/13/24 04:00 36.7 C 77 18 93/57 L 12/12/24 23:15 36.6 C 75 18 123/61 12/12/24 21:59 77 12/12/24 21:15 12/12/24 19:30 36.7 C 87 18 152/76 H Pulse Ox O2 Del Method O2 Flow Rate 12/13/24 15:10 97 Nasal Cannula 3 12/13/24 15:00 100 Oxymask 5 12/13/24 14:52 100 Oxymask 5 12/13/24 13:22 94 Room Air 12/13/24 12:59 12/13/24 11:13 98 Nasal Cannula 3 12/13/24 07:50 96 Nasal Cannula 3 12/13/24 07:47 Nasal Cannula 3 12/13/24 05:53 12/13/24 04:00 93 Nasal Cannula 3 12/12/24 23:15 95 Nasal Cannula 3 12/12/24 21:59 12/12/24 21:15 Nasal Cannula 3 12/12/24 19:30 93 Nasal Cannula 3 Pain Intensity Bilateral Flank: Pain Intensity: 4 Abdomen: Pain Intensity: 4 Lower Back: Pain Intensity: 6 Transfer of Care Handoff Completed per policy Notes Mental Status: alert / awake / arousable Patient Amnestic to Procedure: Yes Nausea / Vomiting: adequately controlled Pain: adequately controlled Airway Patency, RR, SpO2: stable & adequate BP & HR: stable & adequate Hydration State: stable & adequate Anesthetic Complications: no major complications apparent
--- NOTE | 2024-12-13 15:27 | Fluoroscopy Report ---
FL retrograde includes kub CLINICAL HISTORY: Right retrograde pyelogram and ureteral stent exchange. COMPARISON STUDY: CT of the abdomen and pelvis December 09, 2024. FLUOROSCOPY TIME: 7 seconds. Ka,r: 2.8214 mGy FLUOROSCOPIC IMAGES: 2 FINDINGS: Fluoroscopy was provided during right retrograde pyelogram with right ureteral stent exchan ge. Right hydronephrosis is again noted. IVC filter is incidentally noted. IMPRESSION: Fluoroscopy provided during right retrograde pyelogram and right ureteral stent exchange . ACT 112: Negative or not required by law. Electronically signed by: David Lugo M.D. 12/13/2024 3:25 PM
[2024-12-13 16:20] VITALS: RESP 18
[2024-12-14 08:08] VITALS: TEMP 97.5; O2SAT 98
[2024-12-14 08:08] LABS: Hematocrit (blood only) 35.2 % (37.0-47.0); Hemoglobin 10.8 g/dl (12.0-16.0); Mean Corpuscular Hgb Conc 30.7 g/dL (32.0-36.0); Mean Corpuscular Volume 94.4 fL (80.0-100.0); Mean Platelet Volume 9.5 fL (9.4-12.4); Platelet Count 293 K/uL (130-400); RDW Coefficient of Variation 13.8 % (11.5-14.5); Red Blood Count 3.73 M/uL (4.20-5.40); White Blood Count 10.89 K/ul (4.8-10.8)
[2024-12-14 08:15] LABS: Calcium 9.2 mg/dl (8.6-10.3); Creatinine Clr Calc Pharmacy 42.8 ml/min; Potassium 3.9 mmol/L (3.5-5.1)
--- NOTE | 2024-12-14 09:43 | Urology Progress Note ---
Date of Service December 14, 2024 Assessment & Plan (1) Complicated urinary tract infection: (2) Hydronephrosis: Plan: - Pt POD#1 s/p Cystoscopy, Right Retrograde Pyelogram, Right Ureteral Stent Exchange - Doing well, progressing as expected - Afebrile, lab work reviewed - creatinine 1.65, WBC 10.89, hemoglobin 10.8 - Urine culture on arrival did not grow out any specific bacteria - Blood cultures with no growth to date - Repeat urine culture pending - She seems to be improving with antibiotics and stent exchange - Tolerating right ureteral stent with mild bother - Okay to d/c from perspective when medically stable - Recommend d/c with short course of PO antibiotics, Tamsulosin, prn Pyridium and prn pain medication for stent management - Expected clinical course reviewed, all questions answered - Will arrange outpatient follow-up with our service for ongoing management - will sign off, please contact our service with any additional questions or concerns Admission and Anticipated Discharge Date Admission Date: December 09, 2024 Subjective Patient seen and examined at bedside this morning. She is awake and sitting up in bedside chair eating breakfast. No acute issues overnight. Reports occasional flank discomfort. Voiding spontaneously. Reports some urgency frequency. No dysuria. No fever or chills. Review of Systems Constitutional: as per Subjective / HPI Genitourinary: as per Subjective / HPI Physical Exam Constitutional: no acute distress Respiratory: normal respiratory effort; no respiratory distress and no labored breathing supplemental oxygen in place Gastrointestinal (Abdomen): Inspection/Auscultation: abdomen normal to inspection Musculoskeletal: Head/Neck/Chest: normocephalic Neurologic: moves all extremities and awake Psychiatric: Orientation: alert and oriented x 3 Results & Data Vital Signs (Past 12 Hours) Vital Signs Temp Pulse Pulse Pulse Resp BP BP 12/14/24 08:05 36.4 C L 78 18 94/62 L 12/14/24 07:34 12/14/24 05:38 77 12/14/24 03:08 36.6 C 79 18 115/71 12/13/24 23:00 36.5 C 75 18 122/72 12/13/24 22:05 74 Pulse Ox O2 Del Method O2 Flow Rate 12/14/24 08:05 98 Nasal Cannula 3 12/14/24 07:34 Nasal Cannula 3 12/14/24 05:38 12/14/24 03:08 95 Nasal Cannula 3 12/13/24 23:00 99 Nasal Cannula 3 12/13/24 22:05 PG Care Time/CCT Total # of Minutes Spent Total Time Spent with Patient: Total time spent is greater than 50% in coordination of care (as documented) at patient's floor/unit and/or counseling patient: Coding Level of Care Code 80748 SUB INP/OBS CARE 10/20MIN Diagnoses Complicated urinary tract infection N39.0 Hydronephrosis N13.30 Hydronephrosis type: unspecified (2) Hydronephrosis Hydronephrosis type: unspecified Qualified Code(s): N13.30 - Unspecified hydronephrosis
--- NOTE | 2024-12-14 10:27 | Pharmacy Report ---
Pharmacy Glycemic Short Note 2 - Date of Service December 14, 2024 - Glycemic Short BSG Results (Last 24 hours): 12/13/24 12/13/24 12/13/24 11:45 13:36 14:53 Glucose POC Glucose 146 H 114 H 113 H 12/13/24 12/13/24 12/14/24 17:15 19:57 07:32 Glucose POC Glucose 123 H 171 H 139 H 12/14/24 07:33 Glucose 149 H POC Glucose OUTPATIENT ANTIDIABETIC REGIMEN: * Tresiba 41 units SC PM * Novolog 40-45 units SC AC + SSI (CF 25) * Mounjaro 7.5 mg SC every Tuesday HbA1c: * 6.8% (12/10/24) ASSESSMENT: 12/14/24 * Patient received a total of 23 units of insulin yesterday (10 units were basal and 13 units were bolus). * BSGs were fairly well controlled yesterday ([phone]/dL). * Fasting BSG was 139mg/dL this morning. Will continue HS Lantus scale and bolus insulin with parameters as previously ordered. * POD #1 ureteral stent exchange and she continues on cefepime and daptomycin. 12/13/24: * NPO today for cystoscopy w/ ureteral stent exchange * Blood sugars well-controlled yesterday, ranging 124-150 mg/dL * Received 37 units of insulin (10 units of basal and 27 units of prandial/correctional bolus) * Do not anticipate any changes to glycemic regimen today 12/11/24: * Blood sugars well-controlled yesterday, ranging 96-122 mg/dL w/ fasting blood sugar of 147 mg/dL this morning * Received 20 units of insulin (50/50 basal bolus split) * Do not anticipate any changes to glycemic regimen today 12/10/24: * 69 yo F admitted on 12/10/24 secondary to possible UTI. Pharmacy has been consulted to assist with inpatient glycemic management. Patient is a Type 2 diabetic as an outpatient. Please refer to outpatient regimen and most recent HbA1c above. * Patient was NPO for most of the morning but now a T2DM diet was started with lunch. On daptomycin and cefepime for UTI. * BSGs this morning were 110-99-96 mg/dL. Based on previous admissions, patient has tolerated 12 units of basal at bedtime while eating. Will start with 10 units basal tonight. Novolog parameters based on previous admission data as well. PLAN FOR INPATIENT GLYCEMIC CONTROL: * Basal insulin * Lantus 8-10 units SC HS (see EHR for details) * Bolus insulin * NovoLog per scale ACHS or Q6hrs while NPO * Goal Range: Low 110 mg/dL - High 140 mg/dL * Correction Factor: 20 mg/dL/unit * Nutritional / Prandial insulin per carb ratio of 1 unit per 7 grams CHO consumed
--- NOTE | 2024-12-14 12:16 | Discharge Summary ---
Discharge Summary Date of Service December 14, 2024 Principal Dx & Hospital Course #1 = Principal Diagnosis (1) Bilateral flank pain: (2) Acute UTI (urinary tract infection): (3) Chronic respiratory failure: (4) Diabetes: (5) HTN (hypertension): (6) HLD (hyperlipidemia): (7) Chronic diastolic heart failure: (8) History of pulmonary embolism: (9) History of DVT (deep vein thrombosis): (10) CKD (chronic kidney disease), stage III: (11) Fibromyalgia: (12) Depression with anxiety: (13) RLS (restless legs syndrome): (14) Hypothyroidism: (15) GERD (gastroesophageal reflux disease): Plan 69 year old female with PMH significant for DMII, HTN, HLD, CKD stage III, chronic hypoxemic respiratory failure on home O2, interstitial lung disease, chronic diastolic CHF, history of PE s/p IVC green filter, recurrent DVTs on Criselda noah, venous insufficiency, postsurgical hypothyroidism, depression, anxiety, GERD, fibromyalgia, RLS, and recurrent UTIs who presented to the ED on 12/09 with bilateral flank and lower abdominal pain found to have a UTI. Bilateral flank pain Acute UTI Patient is s/p right ureteral stent in November 2023 that was exchanged in April 2024 and then again this admission on 12/13/2024 by Urology. History of urosepsis, bacteremia, pseudomonas, VRE in the past. Blood cultures negative this admission. Received five days of IV cefepime and daptomycin given history. Urine culture f inalized with high counts of more than 3 types of organisms present. Recollection of urine culture on 12/13/2024 prior to stent exchange with results pending at time of discharge. Urology recommended discharge with short course of PO antibiotics, tamsulosin, prn pain medicine, and prn pyridium Ordered cefdinir 300mg bid x5 days and tamsulosin 0.4mg qhs. Did not order pyridium due to CrCl <50 Patient has been managing pain with tramadol q8hr PRN per home dosing and may continue that Abnormal CT findings Stomach and bowel: There is a 5 cm right paracentral anterior abdominal wall hernia containing a short segment of colon. No signs of acute inflammation or obstruction. No mucosal thickening. Patient is aware of hernia Vasculature: The abdominal aorta is severely calcified. There is no aneurysm. This is a noncontrast study. There is at least 40% stenosis due to calcified plaque. There is an IVC filter in standard position. Patient is currently prescribed baby aspirin, statin, clopidogrel AND Eliquis. Recommend follow up with [facility] to evaluate whether this medication regimen should continue due to high risk for bleeding. Chronic hypoxemic respiratory failure Interstitial lung disease Continue 2-3L NC while resting and 4L NC while ambulating per baseline DMII Continue insulin and resume Mounjaro HTN Continue lasix HLD Continue aspirin Chronic diastolic CHF Continue lasix. Follows with Cardiology. History of PE, recurrent DVTs Continue Eliquis and Plavix. CKD stage III BUN 28 and creatinine 1.65 this morning. Fibromyalgia Continue duloxetine and gabapentin. Depression, anxiety Continue clonazepam and trazodone. RLS Continue ropinirole. Hypothyroidism Continue levothyroxine. GERD Continue pantoprazole. Patient seen in collaboration with Dr. Gr. Please see addendum. Notes For Next Care Provider 69 year old female admitted to the hospital for acute UTI and ureteral stent exchange. Received five days of IV antibiotics in the hospital and sent home on five days of PO antibiotics. Follow up urine culture pending at time of discharge. Please check for final results and ensure PO antibiotics are sensitive to any organisms that are present. Patient is currently prescribed baby aspirin, statin, clopidogrel AND Eliquis. Recommend follow up with [facility] to evaluate whether this medication regimen should continue due to high risk for bleeding. Medication Changes From Visit Cefdinir 300mg PO bid x5 days Tamsulosin 0.4mg PO qhs Resume all home medications Admission HPI Per Admitting Provider 69-year-old female with past med history significant for type 2 diabetes, chronic hypoxemic respiratory failure on oxygen 2 L while resting and while sleeping and 4 L while ambulation, diabetic peripheral angiopathy, hyperlipide huber, postsurgical hypothyroidism, hyperparathyroidism secondary to renal disease, CKD stage III, interstitial lung disease, sleep apnea, morbid obesity, chronic heart failure with preserved ejection fraction, recurrent deep vein thrombus of both lower extremities, history of pulmonary embolism, status post IVC green filter, venous insufficiency, hypertension, CAD, carotid stenosis, GERD, iron deficiency, drug-induced constipation, hydronephrosis of right kidney, fibromyalgia, restless leg syndrome, osteoarthritis, heparin-induced thrombocytopenia, depression, anxiety, history of VRE presents with bilateral flank and lower abdominal pain and found to have UTI. Patient has history of recurrent UTI. In the past cultures grew Pseudomonas and VRE. Patient has history of possible UPJ obstruction status post right ureteral stent in November 26, 2023 and stent exchange in April 2024. She is due for again stent exchange. Follows with urology. Patient has urinary symptoms for last 2 weeks. O utpatient urinalysis was done couple of times and seemed okay. But she continues to have a lot of pain in the flank and and lower abdomen. Micturating a lot. Having chills. Nauseous. Not feeling well, so she came to the ER today. Denies any headache. No neck pain. Has back pain. No runny nose or sore throat. No cough. No chest pain. No shortness of breath. Currently hemodynamics are okay. Past medical history. As mentioned above Past surgical history. Right total knee arthroplasty. Colonoscopy. Injection of lumbosacral spine. Left knee arthroscopy. Thyroidectomy. Cholecystectomy. Repair of recurrent incisional hernia. Injection of sacroiliac joint. Suture large intestine with colostomy. Right carotid artery Transcath stent, vena cava filter. Social history. Quit smoking 1996. Smoked 1 pack a day for 15 years. Alcohol rarely. No drug use. Family history. Brother has COPD. Father had lung cancer. Mother had liver cancer. Admission Exam Per Admitting Provider General- Not in acute distress Head- atraumatic Eyes- PERRL ENT- oropharynx clear Neck- supple, no JVD. Lungs- clear to auscultation no wheezing or crackles Heart- regular rhythm; no murmur, no gallop. Abdomen- normal bowel sounds, soft, tenderness in lower abdomen, no distension Extremities- no pretibial edema, no erythema seen Neuro- alert, oriented PERRL, no facial palsy; no dysarthria; moves extremities Discharge Exam VITALS: Reviewed and VSS. On 2-3L NC per baseline. GEN: Healthy appearing, obese female, NAD. PSYCH: Good Judgment. AOx3. Normal memory, mood, and affect. HEENT: Head NC/AT. Sclera white and conjunctiva pink. Nares without rhinorrhea. Nasal and oral mucosa pink. NECK: Supple, with no masses. CV: RRR, no m/r/g. LUNGS: CTAB, no w/r/c. ABD: Soft, NT/ND, NBS, no masses or organomegaly, no flank pain SKIN: Warm, well perfused. No skin rashes or abnormal lesions. MSK: No deformities, Normal gait. EXT: No clubbing, cyanosis, or edema. NEURO: OOB to chair. Normal muscle strength and tone. No focal deficits. Updated Medication List Medication Instructions Recorded Confirmed Type aspirin 81 mg tablet,delayed 81 mg PO QAM 09/20/23 12/09/24 History release clonazepam 0.5 mg tablet 0.5 mg PO TID 09/20/23 12/09/24 History furosemide 40 mg tablet 60 mg PO BID 09/20/23 12/09/24 History magnesium oxide 400 mg (241.3 mg 400 mg PO BID 09/20/23 12/09/24 History magnesium) tablet omeprazole 20 mg capsule,delayed 20 mg PO QAM 09/20/23 12/09/24 History release potassium chloride 20 mEq 20 meq PO BID 09/20/23 12/09/24 History tablet,extended release(part/cryst) ropinirole 2 mg tablet 2 mg PO HS 09/20/23 12/09/24 History sennosides 8.6 mg-docusate sodium 1 tab PO BID 09/20/23 12/09/24 History 50 mg tablet (Senna-Time S) tramadol 50 mg tablet 50 mg PO Q8 PRN Pain 09/20/23 12/09/24 History apixaban 2.5 mg tablet (Eliquis) 2.5 mg PO BID 10/24/23 12/09/24 History dicyclomine 20 mg tablet 20 mg PO QID PRN abdominal cramping 10/24/23 12/09/24 History levothyroxine 200 mcg tablet 200 mcg PO DAILYBB #30 tabs 12/07/23 12/09/24 Rx cholecalciferol (vitamin D3) 25 25 mcg PO QAM 01/16/24 12/09/24 History mcg (1,000 unit) tablet clopidogrel 75 mg tablet 75 mg PO QAM 01/16/24 12/09/24 History duloxetine 60 mg capsule,delayed 60 mg PO QAM 12/09/24 12/09/24 History release fluticasone propionate 50 2 spray intranasal AMHS 12/09/24 12/09/24 History mcg/actuation nasal spray,suspension gabapentin 300 mg capsule 300 mg PO AMHS 12/09/24 12/09/24 History insulin aspart U-100 100 unit/mL See Rx Instructions .Route .COMPLEX 12/09/24 12/09/24 History (3 mL) subcutaneous pen (Novolog FlexPen U-100 Insulin aspart) insulin degludec 100 unit/mL (3 41 unit subcut QPM 12/09/24 12/09/24 History mL) subcutaneous pen (Tresiba FlexTouch U-100 insulin) rosuvastatin 5 mg tablet 5 mg PO QAM 12/09/24 12/09/24 History tirzepatide 7.5 mg/0.5 mL 7.5 mg subcut WK 12/09/24 12/09/24 History subcutaneous pen injector (Mounjaro) tizanidine 4 mg tablet 4 mg PO Q6 PRN Muscle Spasm 12/09/24 12/09/24 History trazodone 50 mg tablet 50 mg PO HS 12/09/24 12/09/24 History Lactobacillus acidoph-L.bulgaricus 1 tab PO DAILY #14 tabs 12/14/24 Rx 1 million cell tablet (Floranex) cefdinir 300 mg capsule 300 mg PO BID 5 days #10 caps 12/14/24 Rx tamsulosin 0.4 mg capsule 0.4 mg PO HS #30 caps 12/14/24 Rx Hospital Stay Data Consultations 12/09/24 21:27 ED Decision to Admit Stat 12/10/24 08:00 Consult Urology Routine 12/14/24 07:34 Consult Infectious Diseases Routine Procedures Performed Operation Date: 12/13/24 14:25 Actual Procedures p Cystoscopy, Right Retrograde Pyelogram, Right Ureteral Stent Exchange(Right) - Al Arriaga MD Diagnostic Imagining Performed Abdomen/Pelvis CT 12/09/24 20:32 Exam(s): CT ABDOMEN + PELVIS Without Contrast EXAM: CT Abdomen and Pelvis Without Intravenous Contrast CLINICAL HISTORY: Reason for exam: bilateral flank pain. TECHNIQUE: Axial computed tomography images of the abdomen and pelvis without intravenous contrast. CTDI is 28.14 mGy and DLP is 1387.25 mGy-cm. Automated exposure control was utilized for the study. A dose lowering technique was utilized adhering to the principles of ALARA. COMPARISON: January 16, 2024 FINDINGS: Lung bases: Mild fibrotic changes in the lung bases. No consolidation. ABDOMEN: Liver: The liver is mildly enlarged is a 19.2 cm. No focal liver mass lesion is seen. Gallbladder and bile ducts: Previous cholecystectomy. No biliary duct dilation or choledocholithiasis is seen. Pancreas: Unremarkable. No ductal dilation. Spleen: Unremarkable. No splenomegaly. Adrenals: Unremarkable. No mass. Kidneys and ureters: Unremarkable. No obstructing stones. No hydronephrosis. Stomach and bowel: There is a 5 cm right paracentral anterior abdominal wall hernia containing a short segment of colon. No signs of acute inflammation or obstruction. No mucosal thickening. PELVIS: Appendix: No findings to suggest acute appendicitis. Bladder: Unremarkable. No stones. Reproductive: Unremarkable as visualized. ABDOMEN and PELVIS: Intraperitoneal space: Bowel loops are nondilated. No pneumoperitoneum, free fluid, or acute inflammatory changes are seen involving the bowel. Bones/joints: Moderate multilevel degenerative changes throughout the spine. No acute fracture or subluxation. Soft tissues: See above. Vasculature: The abdominal aorta is severely calcified. There is no aneurysm. This is a noncontrast study. There is at least 40% stenosis due to calcified plaque. There is an IVC filter in standard position. Lymph nodes: Unremarkable. No enlarged lymph nodes. Tubes, lines and devices: There is a right-sided double-J ureteral stent in good position. There is moderate dilation of the right renal pelvis measuring 4.2 cm transverse, similar to previous. No surrounding edema is seen. IMPRESSION: 1. There is a 5 cm right paracentral anterior abdominal wall hernia containing a short segment of colon. No signs of acute inflammation or obstruction. 2. There is a right-sided double-J ureteral stent in good position. There is moderate dilation of the right renal pelvis measuring 4.2 cm transverse, similar to previous. No surrounding edema is seen. 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 Some component of stent dysfunction cannot be excluded. 3. Bowel loops are nondilated. No pneumoperitoneum, free fluid, or acute inflammatory changes are seen involving the bowel. Electronically signed by: Zia Duncan MD 12/09/24 22:37 PM Venous Doppler Study 12/10/24 00:35 BILATERAL LOWER EXTREMITY VENOUS DOPPLER HISTORY: b/l lower ext edema. dvt? COMPARISON STUDY: 03/02/2019 FINDINGS: No evidence of DVT seen in bilateral lower extremities. IMPRESSION: No DVT seen. ACT 112: Negative or not required by law. Electronically signed by: Isai Westbrook M.D. 12/10/2024 9:32 AM Retrograde Pyelogram 12/13/24 14:25 FL retrograde includes kub CLINICAL HISTORY: Right retrograde pyelogram and ureteral stent exchange. COMPARISON STUDY: CT of the abdomen and pelvis December 09, 2024. FLUOROSCOPY TIME: 7 seconds. Ka,r: 2.8214 mGy FLUOROSCOPIC IMAGES: 2 FINDINGS: Fluoroscopy was provided during right retrograde pyelogram with right ureteral stent exchange. Right hydronephrosis is again noted. IVC filter is incidentally noted. IMPRESSION: Fluoroscopy provided during right retrograde pyelogram and right ureteral stent exchange. ACT 112: Negative or not required by law. Electronically signed by: David Lugo M.D. 12/13/2024 3:25 PM Pending Results Patient Have Any Pending Studies at Discharge: Yes Discharge Instructions Given to Patient (Per Discharging Provider) You were admitted to the hospital on 12/09 for flank and abdominal pain and were found to have a urinary tract infection. You were treated with IV antibiotics for a few days and Urology exchanged your stent on 12/13. The stent exchange went well and you were feeling well enough to be discharged home today. MEDICATION CHANGES: Please take Cefdinir 300mg by mouth twice a day for 5 days. Recommend taking a probiotic for 2 weeks. Please take Tamsulosin 0.4mg by mouth every night. You may continue to take Tramadol 50mg by mouth every 8 hours as needed for pain. Take a probiotic daily x at least 2 weeks. SUMMARY OF TEST RESULTS: None PENDING TEST RESULTS: Urine culture from 12/13 is pending. This was recollected due to urine culture on 12/09 resulting with high counts of more than three types of organisms. Please have your PCP follow up on final results to ensure that the antibiotics we sent you home on cover any possible organisms that may be present. RECOMMENDATIONS FOR FOLLOW-UP: Please follow up with your PCP following hospitalization Please follow up with Urology regarding your next stent exchange OTHER INSTRUCTIONS: Seek medical attention if you have: * temperature above 101 * chest pain or trouble breathing * abdominal pain, nausea, vomiting * diarrhea, dark stools or bloody stools * any unanswered questions or concerns Call 911 if symptoms are severe. It has been a pleasure taking care of you. Please take care of yourself. If you have any questions regarding your recent hospitalization please contact [facility] and request Nga Lam @ [phone]. UTI Prevention Stay Hydrated: Drinking plenty of water helps flush out bacteria from your urinary tract. Urinate Regularly:Don't hold your urine for long periods, as this can allow bacteria to multiply. Urinate After Sex:Urinate shortly after sexual activity to help flush out any bacteria that may have entered the urethra. Wipe Front to Back:Always wipe from front to back after using the bathroom, especially for women, to prevent bacteria from the rectum from entering the urethra. Take Showers Instead of Baths:Avoid long baths, as skin bacteria can contaminate the bath water and potentially enter the urethra. Avoid Scented Products:Minimize or avoid using feminine hygiene sprays, douches, or powders, as they can irritate the urethra. Choose Cotton Underwear:Opt for cotton underwear, which allows better air circulation and helps keep the area dry. Change Pads Frequently:If using sanitary pads, change them often to prevent bacteria from growing. Empty bladder completely:Don't [place] to finish urinating, give yourself time to completely empty your bladder Avoid tight-fitting pants:Tight clothes and nylon underwear trap moisture, which can create a breeding ground for bacteria Total Time Total Time Spent Total Time Spent (In Minutes): I spent a total of 35 minutes coordinating, documenting and providing care for this patient excluding time spent in the performance of separately billed servi dannielle or time spent by another provider/QHP. Supervising Physician Co-Signing Physician Notes Attending Addendum: Case reviewed with the advanced practitioner. I have personally performed a history and physical examination on the patient. I have reviewed the advanced practitioner's documentation on the date of service referenced in note, and I agree with, and take responsibility for the plan of care. please refer to her notes for full details patient seen and examined, records reviewed by myself as well diagnoses and plan of care as per advanced practitioner's notes I spent a total of 35 minutes coordinating, documenting, and providing care for this patient, excluding time spent in the performance of separately billed services or time spent by another provider/QHP. Juan Gr MD
[2024-12-14 12:38] VITALS: BP 122/75
--- NOTE | 2024-12-14 15:23 | Infectious Disease Consult ---
Date of Service December 14, 2024 Attending addendum This is a 69 y/o morbidl obese female w/ hx of recurrent UTI, UPJ obstruction w/ R hydronephrosis s/p R ureteral stent placement (since 11/2023, last exchanged in 04/2024), CKD III, ILD w/ chronic resp failure on 2 liter O2, DM2 w/ peripheral neuropathy, chronic HF, DVT/PE s/p IVC filter and venous insufficiency, who presented to [facility] on 12/09/24 for b/l flank and lower abd pain, was admitted for complicated UTI w/ hydronephrosis and had R ureteral stent exchange (12/13/24). CT showed moderate dilation of the R renal pelvis measuring 4.2 cm transverse, similar to previous. Blood cx (12/09): NGTD. Urince cx (12/09) showed more than three types of organisms. The patient is resting comfortably in bed, wanting to go home. ABX Cefepime 12/10- Daptomycin 12/10- CrCl 42.8 Prior urine cx: Enterobacter (R to cefoxitin; I to nitro), Citrobacter freundii (R to ctx, zosyn), PSA (S to cefep, ceftaz, cipro, lvq, williams, zosyn, tobra), VRE (R to amp, FQ, tetra, vanco) Recommendations: - As she has been appropriate abx therapy since 12/10 and had stent placed, may switch cefepime and daptomycin to cipro po and linezolid po to complete on 12/19/24. I saw and evaluated the patient today. I have reviewed the trainee note and agree. Telehealth Information I performed this visit using a real-time telehealth connection between my location and the patients location ([facility]). After connecting through interactive tele-video, patient was identified by name and date of and/or wristband check.Patient (or authorized healthcare sales representative facility services) was informed that this was a telemedicine visit and it was being conducted confidentially over secure lines. My office door was closed and no one else was present in the room with me.Patient (or authorized healthcare sales representative facility services) provided consent to proceed with the visit, expressed an und erstanding of privacy and security of the telemedicine visit, and gave permission to have a hospital sales representative facility services in the room in order to assist with the visit and to conduct portions of the visit, as needed. I informed the patient (or authorized healthcare sales representative facility services) that I reviewed their record and presented the opportunity for them to ask any questions regarding the visit today. The patient agreed to participate. Assessment & Plan (1) Acute UTI (urinary tract infection): Plan Patient with complicated urinary tract infection, status post stent replacement. Unfortunately unable to obtain culture growth at this moment however reasonable to treat based on previous and continuing with similar spectrum. Patient does seem to be improving very well. We will treat as if she had Pseudomonas/ VRE as per previous cultures. Patient can be transitioned to p.o. antibiotics at any time to complete a total of 7 days. - Ciprofloxacin p.o. 500 mg twice daily, linezolid 600 mg p.o. twice daily with EOT 12/19/2024 - recommend holding patient's home trazodone for the duration of linezolid Appreciate consultation, Infectious Disease will sign off at this time. please do not hesitate to reach out for any further questions or concerns. Derick Hogan MD PGY5 Infectious Disease History of Present Illness History of Present Illness 69 F w DM2,interstitial lung disease w chronic hypoxic resp failure 2L while sleeping, 4L w ambulaton, CKD3, PE s/p IVC filter, obstructive nephrolithiasis s/p R ureteral stents presents with BL flank pain, UTI was suspected and possible stent dysfunction, Underwent R ureteral stent replacement with urology 12/13/24. No fevers, mild elevation of WBC. Urine culture contaminated with growth of many bacteriums. No growth of repeat culture. Emperically placed on cefepime/ daptomycin given Hx VRE, Day 3 of abx. patient did complain of significant frequency prior to admission. Allergies Allergy/AdvReac Type Severity Reaction Status Date / Time morphine Allergy Severe Swelling, Verified 12/09/24 22:49 "Violent reaction- almost " dapagliflozin [From Farxiga] Allergy Intermediate Yeast Verified 12/09/24 22:49 infections tetanus toxoid, adsorbed Allergy Intermediate Passed Verified 12/09/24 22:49 out, "got sick" as child bupropion [From Wellbutrin] AdvReac Intermediate Recurrent Verified 12/09/24 22:49 falls as per patient codeine AdvReac Intermediate Hallucinati Verified 12/09/24 22:49 ons empagliflozin AdvReac Intermediate Yeast Verified 12/09/24 22:49 [From Jardiance] infections heparin AdvReac Intermediate HIT, Verified 12/09/24 22:49 "Fluid in lungs" hydrocodone [From Vicodin] AdvReac Intermediate Drowsy Verified 12/09/24 22:49 Home Medications Medication Instructions Recorded Confirmed Type aspirin 81 mg tablet,delayed 81 mg PO QAM 09/20/23 12/09/24 History release clonazepam 0.5 mg tablet 0.5 mg PO TID 09/20/23 12/09/24 History furosemide 40 mg tablet 60 mg PO BID 09/20/23 12/09/24 History magnesium oxide 400 mg (241.3 mg 400 mg PO BID 09/20/23 12/09/24 History magnesium) tablet omeprazole 20 mg capsule,delayed 20 mg PO QAM 09/20/23 12/09/24 History release potassium chloride 20 mEq 20 meq PO BID 09/20/23 12/09/24 History tablet,extended release(part/cryst) ropinirole 2 mg tablet 2 mg PO HS 09/20/23 12/09/24 History sennosides 8.6 mg-docusate sodium 1 tab PO BID 09/20/23 12/09/24 History 50 mg tablet (Senna-Time S) tramadol 50 mg tablet 50 mg PO Q8 PRN Pain 09/20/23 12/09/24 History apixaban 2.5 mg tablet (Eliquis) 2.5 mg PO BID 10/24/23 12/09/24 History dicyclomine 20 mg tablet 20 mg PO QID PRN abdominal cramping 10/24/23 12/09/24 History levothyroxine 200 mcg tablet 200 mcg PO DAILYBB #30 tabs 12/07/23 12/09/24 Rx cholecalciferol (vitamin D3) 25 25 mcg PO QAM 01/16/24 12/09/24 History mcg (1,000 unit) tablet clopidogrel 75 mg tablet 75 mg PO QAM 01/16/24 12/09/24 History duloxetine 60 mg capsule,delayed 60 mg PO QAM 12/09/24 12/09/24 History release fluticasone propionate 50 2 spray intranasal AMHS 12/09/24 12/09/24 History mcg/actuation nasal spray,suspension gabapentin 300 mg capsule 300 mg PO AMHS 12/09/24 12/09/24 History insulin aspart U-100 100 unit/mL See Rx Instructions .Route .COMPLEX 12/09/24 12/09/24 History (3 mL) subcutaneous pen (Novolog FlexPen U-100 Insulin aspart) insulin degludec 100 unit/mL (3 41 unit subcut QPM 12/09/24 12/09/24 History mL) subcutaneous pen (Tresiba FlexTouch U-100 insulin) rosuvastatin 5 mg tablet 5 mg PO QAM 12/09/24 12/09/24 History tirzepatide 7.5 mg/0.5 mL 7.5 mg subcut WK 12/09/24 12/09/24 History subcutaneous pen injector (Mounjaro) tizanidine 4 mg tablet 4 mg PO Q6 PRN Muscle Spasm 12/09/24 12/09/24 History trazodone 50 mg tablet 50 mg PO HS 12/09/24 12/09/24 History cefdinir 300 mg capsule 300 mg PO BID 5 days #10 caps 12/14/24 Rx tamsulosin 0.4 mg capsule 0.4 mg PO HS #30 caps 12/14/24 Rx Patient History Medical History Subclavian arterial stenosis (06/2023) Cerebrovascular duplex study 06/2023: Retrograde flow in the right vertebral artery. 50-69% proximal right subclavian artery stenosis. Antegrade flow in the left vertebral artery. Normal flow in the left subclavian artery. Hx of pulmonary edema Pickwickian syndrome Orthostasis Lumbago with sciatica Left knee DJD Hx of hydronephrosis Hyperlipemia Hypertension HIT (heparin-induced thrombocytopenia) (2008) hx - [facility] then life flight to [place] > "resolved" Deep vein thrombosis (DVT) Recurrent per records On Eliquis Initially occurred during ICU [place] admission, s/p zoraida filter [address] Right LE doppler 11/2023 showed no DVT within right LE Hepatosplenomegaly Hx of fracture radius Depression with anxiety Chronic diastolic (congestive) heart failure follos with Dr. 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) VRE UTI during inpatient admit at [facility] Hx of Clostridium difficile infection (12/2023) during inpatient admit to [facility], treated, no current sx Hx of constipation Hx of vertigo occasional Hx: UTI (urinary tract infection) frequent Hx of fall (11/2023) last fall was November 2023 - no injuries Diabetes IDDM ELISSA on CPAP CPAP + 3L O2 (O2 is continuous) Hx of septic shock (12/2023) due to UTI - admit to [facility] Presence of IVC filter (2008) [facility], continues to be in place due to current clots behind right knee Hx pulmonary embolism (2008) s/p zoraida filter GERD (gastroesophageal reflux disease) RLS (restless legs syndrome) History of pneumonia (2008) x 8 weeks, [facility] then tx to [facility], "put me in a coma[facility] then [facility] to [facility] care with trach" Trach removed Sep 2009 Fibromyalgia Hypothyroidism Hx of pyelonephritis (12/2023) CKD (chronic kidney disease), stage III follows [facility] Nephrology Hx of congestive heart failure takes mery [facility] Dr. Jose C Garcia Chronic hypoxemic respiratory failure O2 3-4L at all times - sees Pulm @ [facility] - [facility] Figueredo Transient hypotension Mitral valve stenosis Mild per cardio records (due to severe calcification) Echo 06/2023: Borderline mild mitral stenosis secondary to severe mitral annular calcification, follows [facility] cardio Dr. Woodall Cataract, bilateral Neuropathy feet On home oxygen therapy 3-4L continuous Surgical History History of colon resection (2008) secondary to R colon perforation, resected treated with colostomy and eventual reversal in 2008 Hx of tracheostomy (06/2009) (per [facility] records), secondary to acute respiratory failure in setting of PNA, reversed a few months later in 2009 Hx of cystoscopy (11/25/23) with stent placement right side due to infection History of transcarotid artery revascularization (TCAR) (08/2023) right, [facility] History of right knee joint replacement (Unknown) > 10 years Hx laparoscopic cholecystectomy Hx of thyroidectomy (2011) total Family history of reaction to anesthesia Brother/niece- PONV Brother- "wakes up violent" History of colostomy reversal (10/1997) History of tooth extraction History of arthroscopy (Unknown) left ankle , > 10 years History of incisional hernia repair Nausea and vomiting after administration of anesthetic agent History of colonoscopy Family History Father , age 74 Lung cancer Mother , age 45 Cirrhosis Social History Smoking Status: Never smoker Tobacco Type: Cigarettes Cigarettes Per Day: 1996; Second Hand Exposure: No; Do You Dip or Chew Tobacco: No; Hx Alcohol Use: No Hx Substance Use: No Preferred Language: Pashto Communication Ability: Effective Compounder Required: No Beliefs That Will Affect Care: None marital status: Single Current Living Situation: Alone Current Living Situation Comment: Lives by self in apartment How many Children do You have: 0 Feels Safe at Home: Yes Assistive Devices: Oxygen - Continuous and Walker Review of Systems CONSTITUTIONAL: Denies weight loss, fever and chills. HEENT: Denies changes in vision and hearing. RESPIRATORY: Denies SOB and cough. CV: Denies palpitations and CP. GI: Denies abdominal pain, nausea, vomiting and diarrhea. : Denies dysuria and urinary frequency. MSK: Denies myalgia and joint pain. SKIN: Denies rash and pruritus. NEUROLOGICAL: Denies headache and syncope PSYCHIATRIC: Denies recent changes in mood. Denies anxiety and depression. Physical Exam GENERAL: Appears as stated age. No acute distress. NEUROLOGIC: No obvious focal neurological deficits. Cranial nerves grossly intact. Results & Data Vital Signs (Past 12 Hours) Vital Signs Temp Pulse Pulse Resp BP Pulse Ox O2 Del Method 12/14/24 12:58 70 12/14/24 12:00 36.4 C L 68 18 122/75 98 Nasal Cannula 12/14/24 08:05 36.4 C L 78 18 94/62 L 98 Nasal Cannula 12/14/24 07:34 Nasal Cannula 12/14/24 05:38 77 O2 Flow Rate 12/14/24 12:58 12/14/24 12:00 3 12/14/24 08:05 3 12/14/24 07:34 3 12/14/24 05:38 Laboratory Results 12/13/24 12:11 Urine Culture - Preliminary Urine,Clean Catch No growth - Less than 1,000 colonies/mL, Final report to follow. 12/14/24 12/14/24 12/14/24 11:51 07:33 07:32 WBC 10.89 H RBC 3.73 L Hgb 10.8 L Hct 35.2 L MCV 94.4 MCH 29.0 MCHC 30.7 L RDW Std Deviation 47.0 H RDW Coeff of Adolfo 13.8 Plt Count 293 MPV 9.5 Sodium 139 Potassium 3.9 Chloride 99 Carbon Dioxide 33 H Anion Gap 7 BUN 28 H Creatinine 1.65 H Est Cr Clr Drug Dosing 42.8 eGFR 33.44 BUN/Creatinine Ratio 17.0 Glucose 149 H POC Glucose 163 H 139 H Calcium 9.2 12/13/24 12/13/24 19:57 17:15 WBC RBC Hgb Hct MCV MCH MCHC RDW Std Deviation RDW Coeff of Adolfo Plt Count MPV Sodium Potassium Chloride Carbon Dioxide Anion Gap BUN Creatinine Est Cr Clr Drug Dosing eGFR BUN/Creatinine Ratio Glucose POC Glucose 171 H 123 H Calcium Diagnostic Findings Abdomen/Pelvis CT 12/09/24 20:32 Exam(s): CT ABDOMEN + PELVIS Without Contrast EXAM: CT Abdomen and Pelvis Without Intravenous Contrast CLINICAL HISTORY: Reason for exam: bilateral flank pain. TECHNIQUE: Axial computed tomography images of the abdomen and pelvis without intravenous contrast. CTDI is 28.14 mGy and DLP is 1387.25 mGy-cm. Automated exposure control was utilized for the study. A dose lowering technique was utilized adhering to the principles of ALARA. COMPARISON: January 16, 2024 FINDINGS: Lung bases: Mild fibrotic changes in the lung bases. No consolidation. ABDOMEN: Liver: The liver is mildly enlarged is a 19.2 cm. No focal liver mass lesion is seen. Gallbladder and bile ducts: Previous cholecystectomy. No biliary duct dilation or choledocholithiasis is seen. Pancreas: Unremarkable. No ductal dilation. Spleen: Unremarkable. No splenomegaly. Adrenals: Unremarkable. No mass. Kidneys and ureters: Unremarkable. No obstructing stones. No hydronephrosis. Stomach and bowel: There is a 5 cm right paracentral anterior abdominal wall hernia containing a short segment of colon. No signs of acute inflammation or obstruction. No mucosal thickening. PELVIS: Appendix: No findings to suggest acute appendicitis. Bladder: Unremarkable. No stones. Reproductive: Unremarkable as visualized. ABDOMEN and PELVIS: Intraperitoneal space: Bowel loops are nondilated. No pneumoperitoneum, free fluid, or acute inflammatory changes are seen involving the bowel. Bones/joints: Moderate multilevel degenerative changes throughout the spine. No acute fracture or subluxation. Soft tissues: See above. Vasculature: The abdominal aorta is severely calcified. There is no aneurysm. This is a noncontrast study. There is at least 40% stenosis due to calcified plaque. There is an IVC filter in standard position. Lymph nodes: Unremarkable. No enlarged lymph nodes. Tubes, lines and devices: There is a right-sided double-J ureteral stent in good position. There is moderate dilation of the right renal pelvis measuring 4.2 cm transverse, similar to previous. No surrounding edema is seen. IMPRESSION: 1. There is a 5 cm right paracentral anterior abdominal wall hernia containing a short segment of colon. No signs of acute inflammation or obstruction. 2. There is a right-sided double-J ureteral stent in good position. There is moderate dilation of the right renal pelvis measuring 4.2 cm transverse, similar to previous. No surrounding edema is seen. 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 Some component of stent dysfunction cannot be excluded. 3. Bowel loops are nondilated. No pneumoperitoneum, free fluid, or acute inflammatory changes are seen involving the bowel. Electronically signed by: Zia Duncan MD 12/09/24 22:37 PM Venous Doppler Study 12/10/24 00:35 BILATERAL LOWER EXTREMITY VENOUS DOPPLER HISTORY: b/l lower ext edema. dvt? COMPARISON STUDY: 03/02/2019 FINDINGS: No evidence of DVT seen in bilateral lower extremities. IMPRESSION: No DVT seen. ACT 112: Negative or not required by law. Electronically signed by: Isai Westbrook M.D. 12/10/2024 9:32 AM Retrograde Pyelogram 12/13/24 14:25 FL retrograde includes kub CLINICAL HISTORY: Right retrograde pyelogram and ureteral stent exchange. COMPARISON STUDY: CT of the abdomen and pelvis December 09, 2024. FLUOROSCOPY TIME: 7 seconds. lidia Akins: 2.8214 mGy FLUOROSCOPIC IMAGES: 2 FINDINGS: Fluoroscopy was provided during right retrograde pyelogram with right ureteral stent exchange. Right hydronephrosis is again noted. IVC filter is incidentally noted. IMPRESSION: Fluoroscopy provided during right retrograde pyelogram and right ureteral stent exchange. ACT 112: Negative or not required by law. Electronically signed by: David Lugo M.D. 12/13/2024 3:25 PM
[2024-12-14 15:34] VITALS: PULSE 79
== END 2024-12-14 15:50 | disposition home or self-care (01) | DRG 660 ==
LOC: ED 19:15 → EDINP 22:53 → SUATTDRO 22:53 → 2W 12-10 13:35

== ENCOUNTER 2025-01-23 17:35 | Inpatient (IN) ==
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
[2025-01-23 18:42] LABS: Basophils # (auto) 0.04 K/uL (0.00-0.20); Basophils % (auto) 0.3 %; Eosinophils # (auto) 0.29 K/uL (0.00-0.50); Eosinophils % (auto) 2.5 %; Hematocrit (blood only) 39.5 % (37.0-47.0); Hemoglobin 12.6 g/dl (12.0-16.0); Immature Granulocytes # (auto) 0.04 K/uL (0.01-0.20); Immature Granulocytes % (auto) 0.3 %; Lymphocytes % (auto) 11.9 %; Mean Corpuscular Hemoglobin 29.3 pg (25.0-34.0); Mean Corpuscular Hgb Conc 31.9 g/dL (32.0-36.0); Mean Corpuscular Volume 91.9 fL (80.0-100.0); Mean Platelet Volume 9.6 fL (9.4-12.4); Monocytes # (auto) 0.64 K/uL (0.11-0.59); Monocytes % (auto) 5.4 %; Neutrophils # (auto) 9.34 K/uL (1.40-6.50); Neutrophils % (auto) 79.6 %; Platelet Count 306 K/uL (130-400); RDW Standard Deviation 47.2 fL (36.4-46.3); White Blood Count 11.75 K/ul (4.8-10.8)
[2025-01-23 18:58] LABS: Albumin Globulin Ratio 1.1 (0.9-2); Albumin Level 4.3 gm/dl (3.4-5.0); BUN Creatinine Ratio 17.7 (10-20); Bilirubin,Total 0.6 mg/dl (0.2-1.0); Calcium 9.7 mg/dl (8.6-10.3); Creatinine Clr Calc Pharmacy 36.6 ml/min; Potassium 3.9 mmol/L (3.5-5.1); Total Protein 8.3 gm/dl (6.0-8.3)
--- NOTE | 2025-01-23 19:06 | History & Physical Report ---
Date of Service January 23, 2025 Assessment & Plan (1) Chronic hypoxic respiratory failure, on home oxygen therapy: Plan: #Interstitial lung disease Patient is 69-year-old female with PMH DM II, HTN, HLD, CAD, chronic HFpEF, CKD III, chronic hypoxic respiratory failure on 2 L O2 at rest and 4L with ambulation, ILD, sleep apnea, obesity, postsurgical hypothyroidism, history HIT, depression, anxiety, history of recurrent DVT and PE, s/p IVC filter, and others listed below presented to ER with complaint of being out of oxygen secondary to power outage x 1 day. Her oxygen supplier was unable to bring her oxygen tanks today. In ER placed on her normal home O2 at 2L with O2 sat 96% and no further SOB reported. Denies CP Continue home supplemental oxygen On 2-3L NC while resting and 4L NC while ambulating per baseline Will need to confirm patient power restored and home O2 tanks available prior to discharge #Urinary frequency #history ureteral stent Recent hospitalization 12/09/2024-12/14/2024 for UTI, right ureteral stent exchange on 12/13/2024 by urology, negative blood cultures, final urine culture with more than 3 types of organisms present and had received 5 days IV cefepime and daptomycin. Patient reports chronic urinary frequency and chronic lower abdominal pressure and feels this is at baseline. UA pending #DM II Insulin dependent A1c: 6.8 on 12/10/24 Chronic, stable. Continue basal bolus insulin. Will reduce home dose long-acting insulin as pt required less during prior hospital admissions. Will monitor and further adjust #Chronic diastolic CHF Appears euvolemic Continue Lasix #History of PE, recurrent DVTs S/P IVC filter Continue Eliquis #History R TCAR on 09/06/[address] Tang Continue aspirin, Plavix #CKD stage III Cr: 1.9. Baseline creatinine ~1.8 Monitor renal functions #HLD Continue rosuvastatin #Fibromyalgia Continue duloxetine and gabapentin. #Depression, anxiety Chronic, stable. Continue clonazepam, duloxetine #RLS Continue ropinirole. #Hypothyroidism Continue levothyroxine. #GERD Continue pantoprazole. DVT Prophylaxis On Eliquis Admit med surg Full Code as per discussion with pt Follows with Dr Andujar for routine care Pt was seen and care coordinated with Dr Borden See addendum I spent a total of 60 minutes reviewing notes, outpatient records, labs, medication, coordinating, documenting and providing care for this patient excluding time spent in the performance of separately billed services and excluding time spent by another provider/QHP. History of Present Illness Chief Complaint: SOB, out of home oxygen Primary Care Provider: Galdino Andujar DO Patient is 69-year-old female with PMH DM II, HTN, HLD, CAD, chronic HFpEF, CKD III, chronic hypoxic respiratory failure on 2 L O2 at rest and 4L with ambulation, ILD, sleep apnea, obesity, postsurgical hypothyroidism, history HIT, depression, anxiety, history of recurrent DVT and PE, s/p IVC filter, and others listed below presented to ER with complaint of being out of oxygen secondary to power outage x 1 day. Patient reports is out of power since last night and unable to use home oxygen concentrator and ran out of oxygen tanks at home. She reports her oxygen supplier was unable to bring her oxygen today. Since being without oxygen was more SOB. In ER her home oxygen applied and patient reports no further SOB. Denies chest pain, fever, chills or cough. Per inpatient chart review patient with recent hospitalization 12/09/2024-12/14/2024 for UTI, right ureteral stent exchange on 12/13/2024 by urology, negative blood cultures, final urine culture with more than 3 types of organisms present and had received 5 days IV cefepime and daptomycin. Patient reports chronic urinary frequency and chronic lower abdominal pressure and feels this is at baseline. Denies fever, diaphoresis, N/V/D/C, BURROWS, dizziness, CP, palpitations, sore throat, rhinorrhea, extremity weakness, extremity edema, rashes, hematuria. Allergies Allergy/AdvReac Type Severity Reaction Status Date / Time morphine Allergy Severe Swelling, Verified 01/23/25 19:13 "Violent reaction- almost " dapagliflozin [From Farxiga] Allergy Intermediate Yeast Verified 01/23/25 19:13 infections tetanus toxoid, adsorbed Allergy Intermediate Passed Verified 01/23/25 19:13 out, "got sick" as child bupropion [From Wellbutrin] AdvReac Intermediate Recurrent Verified 01/23/25 19:13 falls as per patient codeine AdvReac Intermediate Hallucinati Verified 01/23/25 19:13 ons empagliflozin AdvReac Intermediate Yeast Verified 01/23/25 19:13 [From Jardiance] infections heparin AdvReac Intermediate HIT, Verified 01/23/25 19:13 "Fluid in lungs" hydrocodone [From Vicodin] AdvReac Intermediate Drowsy Verified 01/23/25 19:13 Home Medications Medication Instructions Recorded Confirmed Type aspirin 81 mg tablet,delayed 81 mg PO QAM 09/20/23 01/23/25 History release clonazepam 0.5 mg tablet 0.5 mg PO TID 09/20/23 01/23/25 History furosemide 40 mg tablet 60 mg PO BID 09/20/23 01/23/25 History magnesium oxide 400 mg (241.3 mg 400 mg PO BID 09/20/23 01/23/25 History magnesium) tablet omeprazole 20 mg capsule,delayed 20 mg PO QAM 09/20/23 01/23/25 History release potassium chloride 20 mEq 20 meq PO BID 09/20/23 01/23/25 History tablet,extended release(part/cryst) ropinirole 2 mg tablet 2 mg PO HS 09/20/23 01/23/25 History sennosides 8.6 mg-docusate sodium 1 tab PO BID 09/20/23 01/23/25 History 50 mg tablet (Senna-Time S) tramadol 50 mg tablet 50 mg PO Q8 PRN Pain 09/20/23 01/23/25 History apixaban 2.5 mg tablet (Eliquis) 2.5 mg PO BID 10/24/23 01/23/25 History dicyclomine 20 mg tablet 20 mg PO QID PRN abdominal cramping 10/24/23 01/23/25 History levothyroxine 200 mcg tablet 200 mcg PO DAILYBB #30 tabs 12/07/23 01/23/25 Rx cholecalciferol (vitamin D3) 25 25 mcg PO QAM 01/16/24 01/23/25 History mcg (1,000 unit) tablet clopidogrel 75 mg tablet 75 mg PO QAM 01/16/24 01/23/25 History duloxetine 60 mg capsule,delayed 60 mg PO QAM 12/09/24 01/23/25 History release fluticasone propionate 50 2 spray intranasal AMHS 12/09/24 01/23/25 History mcg/actuation nasal spray,suspension gabapentin 300 mg capsule 300 mg PO AMHS 12/09/24 01/23/25 History insulin aspart U-100 100 unit/mL See Rx Instructions .Route .COMPLEX 12/09/24 01/23/25 History (3 mL) subcutaneous pen (Novolog FlexPen U-100 Insulin aspart) insulin degludec 100 unit/mL (3 41 unit subcut QPM 12/09/24 01/23/25 History mL) subcutaneous pen (Tresiba FlexTouch U-100 insulin) rosuvastatin 5 mg tablet 5 mg PO QAM 12/09/24 01/23/25 History tizanidine 4 mg tablet 4 mg PO Q6 PRN Muscle Spasm 12/09/24 01/23/25 History trazodone 50 mg tablet 50 mg PO HS 12/09/24 01/23/25 History tamsulosin 0.4 mg capsule 0.4 mg PO HS #30 caps 12/14/24 01/23/25 Rx Lactobacillus acidoph-L.bulgaricus 1 tab PO QPM 01/23/25 01/23/25 History 1 million cell tablet (Floranex) Past Med/Surg History Problem List (Updated 01/23/25 @ 19:36 by Greer Perry PA-C) Chronic hypoxic respiratory failure, on home oxygen therapy Complicated urinary tract infection (Acute) Ureteral stent retained Acute UTI (urinary tract infection) (Acute) Following with urology Arthralgia (Acute) Fatigue (Acute) UPJ obstruction, acquired Left knee DJD Ambulatory dysfunction Fall (Acute) Hematuria Polypharmacy Hypoglycemia Chronic respiratory failure Urinary frequency (Acute) Lumbago with sciatica Lower extremity pain, bilateral Major depression, recurrent Sciatica (Acute) Non compliance w medication regimen Chronic diastolic heart failure Multiple falls Subclavian artery stenosis Cerebrovascular duplex study 06/2023: Retrograde flow in the right vertebral artery. 50-69% proximal right subclavian artery stenosis. Antegrade flow in the left vertebral artery. Normal flow in the left subclavian artery. Carotid stenosis, right Cerebrovascular duplex 07/11/23: 80-99% R ICA stenosis. No hemodynamically significant stenosis in the LICA. Left radial head fracture Obesity hypoventilation syndrome Pickwickian syndrome Generalized body aches Weakness (Acute) Orthostasis (Acute) Hip pain, right (Acute) Knee pain, right (Acute) Abdominal pain (Acute) Acute on chronic kidney failure (Acute) Per urology records Per records elevated creatinine stable since 12/2023 CKD (chronic kidney disease), stage III (Chronic) Follows with [facility] Hypomagnesemia (Acute) CHF (congestive heart failure) (Acute) Hepatosplenomegaly (Acute) ELISSA on CPAP (Chronic) CPAP + 3L O2 (O2 is continuous) HTN (hypertension) (Chronic) HLD (hyperlipidemia) (Chronic) Morbid obesity (Chronic) 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, [facility] then life flight to [place] > "resolved" Depression with anxiety (Chronic) Hypothyroidism (Chronic) GERD (gastroesophageal reflux disease) (Chronic) RLS (restless legs syndrome) (Chronic) Presence of IVC filter (Chronic) 2008 Diabetes (Chronic) Fibromyalgia (Chronic) Medical History Bilateral flank pain Acute kidney injury superimposed on chronic kidney disease Leukocytosis Hydronephrosis History of pulmonary embolism 2008 s/p zoraida filter History of DVT (deep vein thrombosis) 2008 (during ICU [place] admission/PNA) Subclavian arterial stenosis (06/2023) Cerebrovascular duplex study 06/2023: Retrograde flow in the right vertebral artery. 50-69% proximal right subclavian artery stenosis. Antegrade flow in the left vertebral artery. Normal flow in the left subclavian artery. Hx of pulmonary edema Pickwickian syndrome Orthostasis Lumbago with sciatica Left knee DJD Hx of hydronephrosis Hyperlipemia Hypertension HIT (heparin-induced thrombocytopenia) (2008) hx - [facility] then life flight to [place] > "resolved" Deep vein thrombosis (DVT) Recurrent per records On Eliquis Initially occurred during ICU [place] admission, s/p zoraida filter [address] Right LE doppler 11/2023 showed no DVT within right LE Hepatosplenomegaly Hx of fracture radius Depression with anxiety Chronic diastolic (congestive) heart failure follos with Dr. 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) VRE UTI during inpatient admit at [facility] Hx of Clostridium difficile infection (12/2023) during inpatient admit to [facility], treated, no current sx Hx of constipation Hx of vertigo occasional Hx: UTI (urinary tract infection) frequent Hx of fall (11/2023) last fall was November 2023 - no injuries Diabetes IDDM ELISSA on CPAP CPAP + 3L O2 (O2 is continuous) Hx of septic shock (12/2023) due to UTI - admit to [facility] Presence of IVC filter (2008) [facility], continues to be in place due to current clots behind right knee Hx pulmonary embolism (2008) s/p zoraida filter GERD (gastroesophageal reflux disease) RLS (restless legs syndrome) History of pneumonia (2008) x 8 weeks, [facility] then tx to [facility], "put me in a coma, flew me to [facility], had a trach then went to [facility] with trach" Trach removed Sep 2009 Fibromyalgia Hypothyroidism Hx of pyelonephritis (12/2023) CKD (chronic kidney disease), stage III follows [facility] Nephrology Hx of congestive heart failure takes lasix, sees Dr. Jose C Garcia Chronic hypoxemic respiratory failure O2 3-4L at all times - sees Pulm @ [facility] Transient hypotension Mitral valve stenosis Mild per cardio records (due to severe calcification) Echo 06/2023: Borderline mild mitral stenosis secondary to severe mitral annular calcification, follows [facility] cardio Dr. Woodall Cataract, bilateral Neuropathy feet On home oxygen therapy 3-4L continuous Surgical History History of colon resection (2008) secondary to R colon perforation, resected treated with colostomy and eventual reversal in 2008 Hx of tracheostomy (06/2009) (per [facility] records), secondary to acute respiratory failure in setting of PNA, reversed a few months later in 2009 Hx of cystoscopy (11/25/23) with stent placement right side due to infection History of transcarotid artery revascularization (TCAR) (08/2023) right, [facility] History of right knee joint replacement (Unknown) > 10 years Hx laparoscopic cholecystectomy Hx of thyroidectomy (2011) total Family history of reaction to anesthesia Brother/niece- PONV Brother- "wakes up violent" History of colostomy reversal (10/1997) History of tooth extraction History of arthroscopy (Unknown) left ankle , > 10 years History of incisional hernia repair Nausea and vomiting after administration of anesthetic agent History of colonoscopy Family History Father , age 74 Lung cancer Mother , age 45 Cirrhosis Social History Smoking Status: Former smoker Tobacco Type: Cigarettes Cigarettes Per Day: 1996; Second Hand Exposure: No; Do You Dip or Chew Tobacco: No; Hx Alcohol Use: No Hx Substance Use: No Preferred Language: Serbian Communication Ability: Effective [employer] Required: No Beliefs That Will Affect Care: None marital status: Single Current Living Situation: Alone Current Living Situation Comment: Lives by self in apartment How many Children do You have: 0 Feels Safe at Home: Yes Assistive Devices: Oxygen - Continuous and Walker Review of Systems Review of Systems: All systems reviewed & are unremarkable except as noted in HPI & below Physical Exam Physical Exam: General: no distress, obese female Head: normocephalic, atraumatic Eyes: conjunctiva non-injected, anicteric ENT: normal inspection external ears, nose, mucous membranes moist Neck: supple, trachea midline Lungs: clear, no respiratory distress, no wheezing/rhonchi/rales CV: RRR, no murmur, no pretibial edema Abd: protuberant, normal BS, soft, +tender to palpation lower abdomen Ext: no cyanosis, no calf tenderness Neuro: A&O x 3, no focal deficits noted, normal affect Skin: warm, dry Results & Data Results & Data Vital Signs (Past 12 Hours) Vital Signs Temp Pulse Pulse Resp BP Pulse Ox O2 Del Method 01/23/25 18:15 88 01/23/25 18:00 87 17 96 Nasal Cannula 01/23/25 17:44 88 01/23/25 17:42 37.0 C 88 16 135/72 98 Nasal Cannula O2 Flow Rate 01/23/25 18:15 01/23/25 18:00 2 01/23/25 17:44 01/23/25 17:42 2 Laboratory Results Short CBC 01/23/25 Range/Units 18:25 WBC 11.75 H (4.8-10.8) K/ul Hgb 12.6 (12.0-16.0) g/dl Hct 39.5 (37.0-47.0) % Plt Count 306 (130-400) K/uL BMP 01/23/25 18:25 Sodium 140 Potassium 3.9 Chloride 98 Carbon Dioxide 36 H BUN 34 H Creatinine 1.92 H Glucose 139 H Calcium 9.7 Liver Function 01/23/25 Range/Units 18:25 Total Bilirubin 0.6 (0.2-1.0) mg/dl AST 10 L (13-39) U/L ALT 7 (7-52) U/L Alkaline Phosphatase 104 (34-104) U/L Albumin 4.3 (3.4-5.0) gm/dl Supervising Physician Co-Signing Physician Notes Patient is a 69-year-old female with history of interstitial lung disease, chronic oxygen dependency on 2 to 4 L oxygen at baseline, diastolic heart joanie lure, sleep apnea, morbid obesity and other medical problems presents to ED as patient ran out of oxygen supply and due to power outage. Patient was unable to obtain supplemental oxygen and so came to ED for further evaluation. Patient did have some shortness of breath without oxygen. Patient also reports chronic lower abdominal discomfort with intermittent increased urinary frequency but denies any dysuria, hematuria, fever, chills. Please review HPI for complete details of presentation. I personally reviewed blood work and imaging studies. Creatinine 1.9 near baseline. Chronic leukocytosis with WBC 11.5 K. Urinalysis currently pending. Physical Exam: Vitals signs as noted above General Appearance: Morbidly obese, no apparent distress Head: normocephalic, Atraumatic Eyes: normal inspection, EOMI Neck: supple, Trachea midline Respiratory/Chest: Decreased breath sounds, CTA, No accessory muscle use Cardiovascular: S1, S2, No murmur Abdomen/GI:Soft, protuberant, non tender, Bowel sounds present Extremities/Musculoskeletal:normal inspection, no edema Neurologic/Psych:AAOX3, grossly no focal neurological deficits Skin: normal color, warm Interstitial lung disease Chronic oxygen dependency CKD stage III Restless leg syndrome Hypothyroidism Fibromyalgia Diabetes mellitus Diastolic CHF History of PE, DVT Continue home medications and supplemental oxygen Urinalysis currently pending. Continue Eliquis for anticoagulation I personally interviewed and examined the patient at bedside. I have reviewed the advanced practitioner's documentation on the date of service referred in note and agree with plan. Patient's care is coordinated with Greer Perry PA-C. Please refer to the documentation above for details of patient's presentation and for discussion of other issues. I spent a total [id number] coordinating, documenting, and providing care for this patient excluding time spent in the performance of separately billed services or time spent by another provider/QHP.
[2025-01-23 19:11] LABS: Prothrombin Time 11.2 Seconds (9.0-12.0)
[2025-01-23] MEDS ORDERED: GLUCOSE 40% GEL 15 GM TUBE PO PRN (20:25)
[2025-01-23] MEDS ORDERED: POLYETHYLENE (MIRALAX) 17 GM PACK PO PRN (20:25)
[2025-01-23] MEDS ORDERED: DEXTROSE 50% 50 ML SYRINGE IV PRN (20:25)
[2025-01-23] MEDS ORDERED: CARBOHYDRATES FOR HYPOGLYCEMIA PO PRN (20:25)
[2025-01-23] MEDS ORDERED: GLUCAGON FOR INJ 1 MG VIAL SQ PRN (20:25)
[2025-01-23] MEDS ORDERED: GLUCOSE 10 TAB/TUBE PO PRN (20:25)
[2025-01-23] MEDS ORDERED: ONDANSETRON INJ 2 MG/ML 2 ML VIAL IV PRN (20:25)
[2025-01-23] MEDS: clonazePAM 0.5 MG TAB PO SCH (21:48)
[2025-01-23] MEDS: GABAPENTIN 300 MG CAP PO SCH (21:48)
[2025-01-23] MEDS: DOCUSATE SODIUM/SENNA 50/8.6MG TAB PO SCH (21:48)
[2025-01-23] MEDS: FLUTICASONE PROPIONATE NA SPR 16 GM BTL NAE SCH (21:48)
[2025-01-23] MEDS: APIXABAN 2.5 MG TAB PO SCH (21:48)
[2025-01-23] MEDS: ADVANCED PROBIOTIC 625 MG CAPSULE PO SCH (21:49)
[2025-01-23] MEDS: MAGNESIUM OXIDE 400 MG TAB PO SCH (21:49)
[2025-01-23] MEDS: traMADol HCL 50 MG TABLET PO PRN (21:50)
[2025-01-23] MEDS: traZODone HCL 50 MG TAB PO SCH (21:50)
[2025-01-23] MEDS: rOPINIRole HCL 2 MG TABLET PO SCH (21:50)
[2025-01-23] MEDS: TAMSULOSIN HCL 0.4 MG CAP PO SCH (21:50)
[2025-01-23] MEDS: tiZANidine HCL 4 MG TABLET PO PRN (21:51)
[2025-01-23 21:53] LABS: Appearance Urine Clear (Clear); Bacteria Urine Automated None Seen (None Seen); Bilirubin Urine Negative (Negative); Blood Urine 2+ (Negative); Cast Urine Automated 0-2 /lpf (0-2); Color Urine Yellow; Epithelial Cell Urine Auto 0-2 /hpf (0-2); Glucose Urine UA Negative (Negative); Ketones Urine Negative (Negative); Leukocyte Esterase Urine 3+ (Negative); Nitrite Urine Negative (Negative); Protein Urine Trace (Negative); RBC Urine Automated >20 /hpf (0-2); Specific Gravity Urine 1.008 (1.000-1.030); Urobilinogen Urine Negative (Negative); WBC Urine Automated >50 /hpf (0-5); pH Urine 7.5 (4.5-7.5)
[2025-01-23] MEDS: POTASSIUM CHLORIDE CRTAB 20 MEQ TABCR PO SCH (21:54)
[2025-01-23] MEDS: INSULIN ASPART PER UNIT CHARGE SC SCH (21:56)
[2025-01-23] MEDS: LANTUS PER UNIT CHARGE SQ SCH (21:57)
--- OUTSIDE RECORDS SUMMARY | 2025-01-23 23:53 | External Medical Summary | Summary of Care ---
Author Name Unknown Organization [facility] Address [address] [place] [address] Phone [phone] Care Team Providers Care Aniline Press Worker Name Role Phone PratimaGaldino DO Primary Care Provider Encounter Details Date Type Department Care Team (Late st Contact Info) Description 01/14/2025 Telephone Care Coordination and Integration [address] [place], [place] [id number] Angi Hagen, Community Health Mixer Tender [address] [place] [address] Allergies Active Allergy Reactions Criticality Noted Date [...] as of this encounter (statuses as of 01/14/2025) Medications oxygen GASIndications:ELISSA (obstructive sleep apnea) Use 4 L/min(Oxygen) as directed continuous. 11/28/19 20 Active CPAP every night at bedtime. Active Acetaminophen 500 MG Oral Tablet (Tylenol) Take 2 Tablets by mouth every 8 hours as needed for Pain, Breakthrough. 100 Tablet 03/18/20 Active DIURETIC TITRATION PLAN If no improvement on day 3, contact heart failure managing provider. 1 Each 03/18/20 Active Dexcom G7 Sensor Use as directed. (From [facility]) 06/01/20 Active Aspirin 81 MG Oral Tablet Delayed ReleaseIndications :Type 2 diabetes mellitus with hemoglobin A1c goal of 7.0%-8.0% (HCC) Take 1 Tablet by mouth in the morning. 28 Tablet 11 11/07/19 25 Active Cholecalciferol 25 MCG (1000 UT) Oral CapsuleIndications :Vitamin D deficiency Take 1 Capsule by mouth in the morning. 28 Capsule 5 11/07/19 25 Active Dicyclomine HCl 20 MG Oral Tablet (Bentyl)Indication s:Irritable bowel syndrome, unspecified type Take 1 Tablet by mouth 4 times a day as needed for Cramping. 180 Tablet 3 12/18/2024 12:20 PM EDT 11/07/19 25 Active DULoxetine HCl 60 MG Oral Capsule Delayed Release Particles (Cymbalta)Indicati ons:Fibromyalgia,M ajor depressive disorder, recurrent, moderate (HCC) Take 1 Capsule by mouth in the morning. 28 Capsule 5 01/03/2025 10:53 AM EDT 11/07/19 25 Active Apixaban 2.5 MG Oral Tablet (Eliquis)Indicatio ns:Recurrent deep vein thrombosis (DVT) of both lower extremities (HCC) Take 1 Tablet by mouth in the morning and 1 Tablet before bedtime. 56 Tablet 11 01/03/2025 10:53 AM EDT 11/07/19 25 Active Ferrous Sulfate 325 (65 Fe) MG Oral Tablet (Feosol)Indication s:Anemia Take 1 Tablet by mouth in the morning and 1 Tablet before bedtime. 56 Tablet 11 11/07/19 25 Active Fluticasone Propionate 50 MCG/ACT Nasal Suspension (Flonase) Administer 2 Sprays into nostril in the morning and 2 Sprays before bedtime. 16 g 3 01/03/2025 10:53 AM EDT 11/07/19 25 Active Furosemide 40 MG Oral Tablet (Lasix)Indications :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 3b chronic kidney disease (HCC) Take 1.5 Tablets by mouth 2 times a day. 84 Tablet 11 01/03/2025 10:53 AM EDT 11/07/19 25 Active Gabapentin 300 MG Oral Capsule (Neurontin)Indicat ions:Fibromyalgia, Lumbar radiculopathy Take 1 Capsule by mouth in the morning and 1 Capsule before bedtime. 60 Capsule 5 01/03/2025 10:53 AM EDT 11/07/19 25 Active Levothyroxine Sodium 200 MCG Oral Tablet (Levoxyl)Indicatio ns:Postsurgical hypothyroidism Take 1 Tablet by mouth daily first thing in the morning. (at least 30 min prior to breakfast or other meds) 28 Tablet 11 01/03/2025 10:53 AM EDT 11/07/19 25 Active Magnesium Oxide [...] by mouth in the morning. 28 Capsule 01/03/2025 10:53 AM EDT 11/07/19 25 Active Polyethylene Glycol 3350 17 GM/SCOOP Oral Powder (MiraLax)Indicatio ns:Drug-induced constipation Take 17 g by mouth in the morning. Dissolve one heaping tablespoon in 8 ounces of water or juice.. 476 g 3 11/07/19 25 Active Additional Information Patient not taking.Reported on 12/20/2024 Potassium Chloride Ayleen ER 20 MEQ Oral Tablet Extended ReleaseIndications :Benign hypertensive heart and kidney disease with diastolic CHF, NYHA class 1 and CKD stage 3 (HCC),Chronic diastolic congestive heart failure (HCC) Take 1 Tablet by mouth in the morning and 1 Tablet before bedtime. 56 Tablet 5 01/03/2025 10:53 AM EDT 11/07/19 25 Active rOPINIRole HCl 2 MG Oral Tablet (Requip)Indication s:Restless legs syndrome Take 1 Tablet by mouth at bedtime. 28 Tablet 5 01/03/2025 10:53 AM EDT 11/07/19 25 Active Rosuvastatin Calcium 5 MG Oral Tablet (Crestor)Indicatio ns:Dyslipidemia Take 1 Tablet by mouth in the morning. 28 Tablet 5 01/03/2025 10:53 AM EDT 11/07/19 25 Active Sennosides-Docusat e Sodium 8.6-50 MG Oral Tablet (Senna-Time S) Take 1 Tablet by mouth in the morning and 1 Tablet before bedtime. 100 Tablet 6 11/07/19 25 Active traZODone HCl 50 MG Oral Tablet (Desyrel) Take 1 Tablet by mouth at bedtime. 28 Tablet 01/03/2025 10:53 AM EDT 11/07/19 25 Active Tresiba FlexTouch 100 UNIT/ML Subcutaneous Solution Pen-injector (Insulin Degludec)Indicatio ns:Type 2 diabetes mellitus with hemoglobin A1c goal of 7.0%-8.0% ([facility]) INJECT 38 UNITS UNDER THE SKIN IN THE EVENING 15 mL 01/08/2025 12:46 PM EDT 11/07/19 25 Active Clopidogrel Bisulfate 75 MG Oral Tablet (pLAVix) Take 1 Tablet by mouth in the morning. 28 Tablet 11 01/03/2025 10:53 AM EDT 11/07/19 25 Active Comfort EZ Pen Anson 31G X 8 MM (Insulin Pen Needle) use five times daily 500 Each 2 11/19/2024 11:42 AM EST 11/16/19 25 Active tiZANidine HCl 4 MG Oral Tablet (Zanaflex)Indicati ons:Spinal stenosis of lumbar region without neurogenic claudication Take 1 Tablet by mouth every 6 hours as needed for Muscle spasms. 60 Tablet 12/06/2024 2:23 PM EDT 12/07/19 25 Active clonazePAM 0.5 MG Oral Tablet (KlonoPIN)Indicati ons:Restless legs syndrome,Anxiety state Take 1 Tablet by mouth in the morning and 1 Tablet at noon and 1 Tablet before bedtime. 84 Tablet 12/14/2024 3:00 PM EDT 12/14/19 25 Active traMADol HCl 50 MG Oral Tablet (Ultram)Indication s:Lumbar radiculopathy,Prim elif osteoarthritis of both knees Take 1 Tablet by mouth every 8 hours as needed for Pain, Severe. 90 Tablet 12/18/2024 12:20 PM EDT 12/18/19 25 Active Cefdinir 300 MG Oral Capsule (Omnicef) take 1 capsule by mouth twice daily for 5 days 10 Capsule 12/14/2024 3:00 PM EDT 12/15/19 25 Active Additional Information Patient not taking.Reported on 12/27/2024 Tamsulosin HCl 0.4 MG Oral Capsule (Flomax) take 1 capsule by mouth at bedtime 30 Capsule 12/14/2024 3:00 PM EDT 12/15/19 25 Active Lactobacillus Oral Tablet take 1 tablet by mouth daily 50 Tablet 12/18/2024 12:20 PM EDT 12/15/19 25 Active Mounjaro 10 MG/0.5ML Subcutaneous Solution Auto-injector (Tirzepatide)Indic ations:Type 2 diabetes mellitus with stage 3b chronic kidney disease, with long-term current use of insulin (HCC) Inject 10 mg under the skin once a week. 2 mL 11 12/27/2024 11:30 AM EDT 12/25/19 25 026 Active Additional Information Patient not taking.Reported on 12/27/2024 Hospital, Clinic, or Other Facility Administered Medication [...] as of this encounter (statuses as of 01/14/2025) Active Problems Problem Noted Date Diagnosed Date Food insecurity 01/07/2025 Overview: Per [facility] Protocol Morbid [...] has rx for atorvastatin and plavix to filler picker at pharmacy. Type 2 diabetes mellitus [...] hypoxemic respiratory failure 01/07/2022 Assessment & Plan (12/30/2024 6:47 PM EDT): Continuous o2 supplement Assessment & Plan (07/13/2023 1:33 PM EDT): [...] chronic kidney disease 05/14/2019 Assessment & Plan (12/30/2024 4:34 PM EDT): "RED FLAG" HF Symptoms: Leg Swelling (Examples: "I can't wear certain socks or shoes", "My pants feel tight") Increased dyspnea on exertion (Example: "I can't walk to the kitchen or up the stairs") Medication Regimen: Beta Faviola Therapy: hypotension WILI Inhibitor/ARB Therapy: No WILI/ARB/ARNI secondary to: unknown Diuretic therapy: Lasix SGLT2 Inhibitor: No Current SGLT2 (Describe in the Comments) Remote Patient Monitoring Vendor: No Connected RPM Device(s): No current devices Self - Management Plan Double dose of Furosemide for 3 days Exacerbation Plan BMP Pro-BNP Chest X-Ray Additional Comments: Stable today Assessment & Plan (09/22/2023 8:22 AM EST): [...] significant nocturnal hypoxemia Dicks Assessment & Plan (12/30/2024 4:34 PM EDT): Encouraged increased compliance with CPAP Assessment & Plan (03/20/2023 8:17 AM EDT): [...] rx evidently given by vascular, has to filler picker rx documented as of this encounter (statuses as of 01/14/2025) Resolved Problems Problem Noted Date Diagnosed Date [...] Taxonomy. Pneumonia in aspergillosis 09/14/2009 0 02/15/2017 Overview (12/26/2024): ICD-10 Update of Inactive Term Venous thrombosis 09/14/2009 10/15/2010 Respiratory failure, acute [...] as of this encounter (statuses as of 01/14/2025) Immunizations Name Administration Dates Next Due COVID-19 mRNA, LNP-s, No Pre serve, 2-Dose Series (LifePics) 01/08/2021,12/18/2020 COVID-19, LNP-s, No Preserve , Navarro-sucrose, Ages 12+ (Pfizer) 2022,10/01/2021 COVID-19, MRNA-LNP, PF, 30 M CG/0.3 mL, 12 YRS AND ABOVE, IM (PFIZER-Comirnaty) 07/31/2024,07/26/2023 Pneumococcal Conjugate Vacci ne, 20-valent ([id number]) 03/12/2022 Pneumococcal Polysaccharide PPV23 (Pneumovax) 08/22/2009,06/15/2006 RSV [...] No Preserve, IM 06/24/2016,07/24/2015 Varicella Zoster Vaccine Sergio lt (Zostavax) 12/11/2015 Zoster Vaccine Recombinant (Shingrix) 05/08/2020 ,11/07/2019 [...] Answer Date Recorded PHQ Adult Total Score 1 12/17/2024 Hunger Vital Sign Answer Date Recorded Within [...] a child, family member or friend? No 12/17/2024 Does your family need help f inding childcare? (Household - for ages 0-17 years) Not on file 12/17/2024 Clothing Answer Date Recorded Have you been unable to get clothing when it was really needed? No 12/17/2024 Is your family able to get c lothes or diapers when needed? (Household - for ages 0-17 years) Not on file 12/17/2024 Personal Safety Answer Date Recorded Do you feel unsafe or have concerns for your saf ety? No 12/17/2024 Do you have concerns for you r family's safety? (Household - for ages 0-17 years) Not on file 12/17/2024 Utilities Answer Date Recorded Do you have trouble paying y our heating, water, or electric bill? No 12/17/2024 Is your family able to pay t he heat, water, or electric bill? (Household - for ages 0-17 years) Not on file 12/17/2024 Does your family have access to good internet? (Household - for ages 0-17 years) Not on file 12/17/2024 Employment Status Answer Date Recorded Are you unemployed or without regular income? No 12/17/2024 Does the household have a re gular source of income? (Household - for ages 0-17 years) Not on file 12/17/2024 Social Connections Answer Date Recorded How often do you feel lonely or isolated from those around you? Sometimes 12/17/2024 Financial Resource Strain Answer Date R ecorded Do you have any trouble payi ng for your medications, or do you think you might in the future? Yes 12/17/2024 Does your family have troubl e paying for medicine? (Household - for ages 0-17 years) Not on file 12/17/2024 Transportation Needs Answer Date Record ed READ ONLY Do you have troubl e getting a ride to medical visits or work? Never True 12/17/2024 Does your family have a hard time getting a ride to doctors visits? (Household - for ages 0-17 years) Not on file 12/17/2024 Has lack of transportation k ept you from medical appointments, meetings, work, or from getting things needed for daily living? Check all that apply. No 12/17/2024 Do you (or your family) have trouble finding or paying for a ride (transportation)? (Household - for ages 0-17 years) Not on file 12/17/2024 Housing Stability Answer Date Recorded Do you currently live in a s helter or have no steady place to sleep at night? No 12/17/2024 READ ONLY Do you think you a re at risk of becoming homeless? No 12/17/2024 Does your family worry about paying for your home or becoming homeless? (Household - for ages 0-17 years) Not on file 0 12/17/2024 Are you homeless or worried that you might be in the future? No 12/17/2024 Are you (or your family) jessie eless [...] you need food for this week? No 12/17/2024 Comments No Sex and Gender Information Value Date Recorded Sex Assigned at Female 11/07/2019 2:21 PM EST Legal Sex Female 5:59 AM EST Gender Identity Female 11/07/2019 2:21 PM EST Sexual Orientation Not on file Occupation Industry Job Start Date Job End Date Retired Not on file Not on file Not on file documented as of this encounter Progress Notes * Angi Hagen, Community Health Mixer Tender - 01/14/2025 2:54 PM EDT Telemedicine visit: No Community Health Worker (CHW) documentation: This CHW placed a general f/u PC to patient in regards to applying for medicaid and re-establishingthis and to see if her Rolator was received yet. Patient reported that she was able to make contact with the assistance office and got that all cleared up. She got a new welfare case worker there and patient was not aware of this and things were not put into the system correctly and this patient has to reapply once the proper financial documents are received. Patient reported that qualifying should not be a problem as per welfare case worker at the assistance office. Patient cannot afford the $100 dollar co-pay for the new Rolator so she is not able to get it. Was advised by the [employer] where she can purchase one for a lot less and patient is going to look into getting one elsewhere. Patient missed her Gynecology appointment because she is unable to d rink a lot of fluids and hold her bladder to have the test done. Patient plans to talk to her PCP and see what other options she has because she is unable to do what is required to have the test done. Patient is not having any UTI symptoms and is doing well. Patient sounded as if she was doing welland patient did not have any other questions or concerns at this time. This CHW encouraged patient to reach out to CM with concerns or questions. Angi Hagen- Community Health Worker 1 Support Services/[facility] Plan [email or web address] documented in this encounter Plan of Treatment Upcoming Encounters Date Type Department Care Team (Late st Contact Info) Description 02/05/2025 1:00 PM EDT Office Visit Family Practice [address] [facility] [place] [address] Galdino Andujar, DO [address] [place] [address] 02/14/2025 1:30 PM EDT Home Visit [facility] [address] [place] [address] Jarrett Mathis, RN [address] [facility] [place] [address] 06/13/2025 1:30 PM EDT Imaging Radiology [facility] [address]st [facility] [address] [place] [phone] 06/24/2025 11:30 AM EDT Office Visit Pulmonary Medicine, [facility] [address] [phone] Jhon[facility] Holley MD [address] [facility] [address] 11/11/2025 1:15 PM EST Imaging Radiology [facility] 1st [facility], Center [address] [place] [phone] Scheduled Procedures Name Priority Associated Diagnoses Date/Ti me COLONOSCOPY FLEXIBLE PROXIMAL DIAGNOSTIC Recall Colon cancer screening Health Maintenance Due Date Last Done Comments Cologuard 2000 Fecal Occult Blood Test 2000 Sigmoidoscopy 2000 CKD PHOS USE SMARTSET 30230 12/26/2024 040 10/2023, 02/11/2023, 01/07/2022, Additional history exists Adult Wellness Visit 02/13/2025 02/14/2024, 08/05/20 22 GFR 04/21/2025 10/22/2024, 08/27, 06/26/2024, Additional history exists HbA1c 04/21/2025 10/22/2024, 09/2023, 03/26/2024, Additional history exists Mammogram 06/12/2025 06/12/2024, 05/27, 04/21/2023, Additional history exists Diabetic Eye Exam 07/06/2025 07/06/2024, , 07/06/2024, Additional history exists Albumin/Creatinine Ratio 10/22/2025 025, 08/05/2023, 11/01/2022, Additional history exists CKD HGB USE SMARTSET 84164 10/22/202510/22, 10/22/2024, 10/11/2024, Additional history exists Diabetic Foot Exam 10/22/2025 10/22/2024, 0 10/04/2023, 11/01/2022, Additional history exists TSH 10/22/2025 10/22/2024, 11/25, 10/13/2023, Additional history exists Depression Monitoring 12/17/2025 12/17/2024 , 10/22/2024, 02/14/2024 Colonoscopy 02/17/2026 02/18/2016, 01/25, 01/28/2006, Additional history [...] Documents on File Type Date Recorded Patient Cpr Ambulance Driver Expl anation POLST 03/19/2020 4:25 PM [...] (no specific identity) Health Care Power of Spark Tester Princess Allen Other - (no specific identity) Health Care Power of Spark Tester Care Teams Aniline Press Worker Relationship Specialty Start Date End Date Galdino Andujar DO [address] [place] [address] PCP - General Internal Medicine 03/08/24 documented as of this encounter
--- OUTSIDE RECORDS SUMMARY | 2025-01-23 23:53 | External Medical Summary | Summary of Care ---
Author Name Unknown Organization [facility] Address [address] [place] [address] Phone [phone] Care Team Providers Care Phone Screener Name Role Phone Galdino Andujar DO Primary Care Provider [phone] Reason for Visit * Reason Onset Date Comments Appointment 01/21/2025 Encounter Details Date Type Department Care Team (Late st Contact Info) Description 01/21/2025 Telephone Family Practice [address] [facility] [place] [address] [place] [address] Galdino Andujar DO [address] [place] [address] Appointment Allergies Active Allergy Reactions [...] as of this encounter (statuses as of 01/23/2025) Medications oxygen GASIndications:ELISSA (obstructive sleep apnea) Use [...] Dexcom G7 Sensor Use as directed. (From [facility]) 06/01/20 Active Aspirin 81 MG Oral Tablet Delayed ReleaseIndications :Type 2 diabetes mellitus with hemoglobin A1c goal of 7.0%-8.0% (HCC) Take 1 Tablet by mouth in the morning. 28 Tablet 11 11/07/19 25 Active Cholecalciferol 25 MCG (1000 UT) Oral CapsuleIndications :Vitamin D deficiency Take 1 Capsule by mouth in the morning. 28 Capsule 11/07/19 25 Active Dicyclomine HCl 20 MG [...] and 1 Tablet before bedtime. 56 Tablet 01/03/2025 10:53 AM EDT 11/07/19 25 [...] mouth in the morning. 28 Capsule 11 01/03/2025 10:53 AM EDT 11/07/19 25 [...] and 1 Tablet before bedtime. 56 Tablet 01/03/2025 10:53 AM EDT 11/07/19 25 Active rOPINIRole HCl 2 MG Oral Tablet (Requip)Indication s:Restless legs syndrome Take 1 Tablet by mouth at bedtime. 28 Tablet 01/03/2025 10:53 AM EDT 11/07/19 25 Active Rosuvastatin Calcium 5 MG Oral Tablet (Crestor)Indicatio ns:Dyslipidemia Take 1 Tablet by mouth in the morning. 28 Tablet 01/03/2025 10:53 AM EDT 11/07/19 [...] FlexTouch 100 UNIT/ML Subcutaneous Solution Pen-injector (Insulin Degludec)Macrinatio ns:Type 2 diabetes mellitus with hemoglobin A1c goal of 7.0%-8.0% ([facility]) INJECT 38 UNITS UNDER THE SKIN IN THE EVENING 15 mL 01/08/2025 12:46 PM EDT 11/07/19 25 Active Clopidogrel Bisulfate 75 MG Oral Tablet (pLAVix) Take 1 Tablet by mouth in the morning. 28 Tablet 01/03/2025 10:53 AM EDT 11/07/19 25 Active Comfort EZ Pen Hoyt 31G X 8 MM (Insulin Pen Needle) use five times daily 500 Each 2 11/19/2024 11:42 AM EST 11/16/19 25 Active tiZANidine HCl 4 MG Oral Tablet (Zanaflex)Macrinati ons:Spinal stenosis of lumbar region without neurogenic claudication Take 1 Tablet by mouth every 6 hours as needed for Muscle spasms. 60 Tablet 12/06/2024 2:23 PM EDT 12/07/19 25 Active clonazePAM 0.5 MG Oral Tablet (KlonoPIN)Macrinati ons:Restless legs syndrome,Anxiety state Take 1 Tablet [...] as of this encounter (statuses as of 01/23/2025) Active Problems Problem Noted Date Diagnosed Date [...] atorvastatin and plavix to picking machine operator helper at pharmacy. 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 Atherosclerosis of chilkat co ronary artery without angina pectoris 12/31/2021 [...] 8:05 AM EDT): Home PT to start [place] filter in place 08/19/2014 History of pulmonary [...] by vascular, has to picking machine operator helper rx documented as of this encounter (statuses as of 01/23/2025) Resolved Problems Problem Noted Date Diagnosed Date [...] as of this encounter (statuses as of 01/23/2025) Immunizations Name Administration Dates Next Due COVID-19 mRNA, LNP-s, No Pre serve, 2-Dose Series (Pfizer) 01/08/2021,12/18/2020 COVID-19, LNP-s, No Preserve , Navarro-sucrose, Ages 12+ (Pfizer) 2022,10/01/2021 COVID-19, MRNA-LNP, PF, 30 M CG/0.3 mL, 12 YRS AND ABOVE, IM (PFIZER-Comirnaty) 07/31/2024,07/26/2023 Pneumococcal Conjugate Vacci ne, 20-valent ([id number]) 03/12/2022 Pneumococcal Polysaccharide PPV23 (Pneumovax) 08/22/2009,06/15/2006 RSV [...] encounter Miscellaneous Notes * Telephone Encounter - Jeanette Villeda OSA - 01/23/2025 9:39 AM EDT Called cardio at [facility] to reschedule her cardio appt. She canceled January 15-a letter was sent. Her new appt is Jul 08. They added her to the fast pass for a sooner appt. CT chest scheduled for Nov 11 2025 * Telephone Encounter - Little Flores RN - 01/21/2025 4:16 PM EDT Please assist in getting patient a FU 6 month cardio appt at [facility]. Also, she needs a ct scan per Dr. Holley 6 months from November 2024. Please assist in scheduling that as well. Thank you! documented in this encounter Plan of Treatment Upcoming Encounters Date Type Department Care Team (Late st Contact Info) Description 02/05/2025 1:00 PM EDT Office Visit Family Practice [address], [place] [address] [place] [address] Galdino Andujar, [address] [place] [address] 02/14/2025 1:30 PM EDT Home Visit [facility] [address] [place] [address] Jarrett Mathis RN [address] [facility] [place] [address] 06/13/2025 1:30 PM EDT Imaging Radiology [address] [place] [phone] 06/24/2025 11:00 AM EDT Imaging Radiology [address] [place] [phone] 06/24/2025 11:30 AM EDT Office Visit Pulmonary Medicine, [facility] [address] [place] [phone] Jhonny Holley MD [address] [address] 07/08/2025 10:00 AM EDT Office Visit Cardiology, [facility] [address] [place] [phone] Michael Saenz PA-C [address] [place] [address] 11/11/2025 1:15 PM EST Imaging Radiology [address] [place] [phone] Scheduled Procedures Name Priority Associated Diagnoses Date/Ti me COLONOSCOPY FLEXIBLE PROXIMAL DIAGNOSTIC Recall Colon cancer screening Health Maintenance Due Date Last Done Comments Cologuard 2000 Fecal Occult Blood Test 2000 Sigmoidoscopy 2000 CKD PHOS USE SMARTSET 47866 12/26/2024 040 10/2023, 02/11/2023, 01/07/2022, Additional history exists Adult Wellness Visit 02/13/2025 02/14/2024, 08/05/20 22 GFR 04/21/2025 10/22/2024, 08/27, 06/26/2024, Additional history exists HbA1c 04/21/2025 10/22/2024, 1009/2023, 03/26/2024, Additional history exists Mammogram 06/12/2025 06/12/2024, 05/27, 04/21/2023, Additional history exists Diabetic Eye Exam 07/06/2025 07/06/2024, , 07/06/2024, Additional history exists Albumin/Creatinine Ratio 10/22/2025 025, 08/05/2023, 11/01/2022, Additional history exists CKD HGB USE SMARTSET 06840 10/22/202510/22, 10/22/2024, 10/11/2024, Additional history exists Diabetic [...] Documents on File Type Date Recorded Patient Lathe Puller Expl anation POLST 03/19/2020 4:25 PM POLST [...] (no specific identity) Health Care Power of Offshore Diver Princess Allen Other - (no specific identity) Health Care Power of Offshore Diver Care Teams Phone Screener Relationship Specialty Start Date End Date Galdino Andujar DO [address] [place] [address] PCP - General Internal Medicine 03/08/24 documented as of this encounter
--- OUTSIDE RECORDS SUMMARY | 2025-01-23 23:53 | External Medical Summary | Summary of Care ---
Author Name Unknown Organization [facility] Address [address] [place] [address] Phone [phone] Care Team Providers Care Marble Machine Operator Name Role Phone PratimaGaldino DO Primary Care Provider [phone] Reason for Visit * Reason Onset Date Comments Appointment 01/14/2025 Uro/ruching machine operator Encounter Details Date Type Department Care Team (Late st Contact Info) Description 01/14/2025 Telephone Care Coordination and Integration [address], [place] [id number] Angi Hagen, Community Health Care Transition Manager [address] [place] [address] Appointment (Uro/ruching machine operator) Allergies Active Allergy Reactions Criticality Noted Date [...] as of this encounter (statuses as of 01/15/2025) Medications oxygen GASIndications:ELISSA (obstructive sleep apnea) Use 4 L/min(Oxygen) as directed continuous. 03/04/20 20 Active CPAP every night at bedtime. Active Acetaminophen 500 MG Oral Tablet (Tylenol) Take 2 Tablets by mouth every 8 hours as needed for Pain, Breakthrough. 100 Tablet 03/18/20 Active DIURETIC TITRATION PLAN If no improvement on day 3, contact heart failure managing provider. 1 Each 03/18/20 Active Dexcom G7 Sensor Use as directed. (From [facility]) 06/01/20 Active Aspirin 81 MG Oral Tablet [...] CKD stage 3 ([facility]),Chronic diastolic congestive heart failure (HCC) Take 1 Tablet by mouth in the morning and 1 Tablet before bedtime. 56 Tablet 11/07/19 25 Active NovoLOG FlexPen 100 UNIT/ML Subcutaneous Solution Pen-injector (insulin aspart)Indications :Type 2 diabetes mellitus with hemoglobin A1c goal of 7.0%-8.0% ([facility]) Inject 8 units with [...] CKD stage 3 ([facility]),Chronic diastolic congestive heart failure ([facility]) Take 1 Tablet by mouth in the morning and 1 Tablet before bedtime. 56 Tablet 5 01/03/2025 10:53 AM EDT 11/07/19 25 Active rOPINIRole HCl 2 MG Oral Tablet (Requip)Indication s:Restless legs syndrome Take 1 Tablet by mouth at bedtime. 28 Tablet 5 01/03/2025 10:53 AM EDT 11/07/19 25 Active Rosuvastatin Calcium 5 MG Oral Tablet (Crestor)Tramo ns:Dyslipidemia Take 1 Tablet by mouth in [...] FlexTouch 100 UNIT/ML Subcutaneous Solution Pen-injector (Insulin Degludec)Tramo ns:Type 2 diabetes mellitus with hemoglobin A1c goal of 7.0%-8.0% ([facility]) INJECT 38 UNITS UNDER THE SKIN IN THE EVENING 15 mL 01/08/2025 12:46 PM EDT 11/07/19 25 Active Clopidogrel Bisulfate 75 MG Oral Tablet (pLAVix) Take 1 Tablet by mouth in the morning. 28 Tablet 11 01/03/2025 10:53 AM EDT 11/07/19 25 Active Comfort EZ Pen [place] 31G X 8 MM (Insulin Pen Needle) use five times daily 500 Each 2 11/19/2024 11:42 AM EST 11/16/19 25 Active tiZANidine HCl 4 MG Oral Tablet (Zanaflex)Macrinati ons:Spinal stenosis of lumbar region without neurogenic claudication Take 1 Tablet by mouth every 6 hours as needed for Muscle spasms. 60 Tablet 12/06/2024 2:23 PM EDT 12/07/19 25 Active clonazePAM 0.5 MG Oral Tablet (KlonoPIN)Tram ons:Restless legs syndrome,Anxiety state Take 1 Tablet [...] insulin ([facility]) Inject 10 mg under the skin once a week. 2 mL 11 12/27/2024 11:30 AM EDT 12/25/19 25 026 Active Additional Information Patient not taking.Reported on 12/27/2024 Hospital, Clinic, or Other Facility Administered Medication Ordered Dose Route Frequency Start Date End Date Status Albuterol Sulfate (Proventil) (2.5 MG/3ML) 0.083% inhalation solution 2.5 mgIndications:ILD (interstitial lung disease) ([facility]),Chronic respiratory failure with hypoxia (HCC) 2.5 mg NEBULIZER PRN 10/11/2024 10/11/2025 Active Albuterol Sulfate (Proventil) (5 MG/ML) 0.5% *conc* inhalation solution 2.5 mgIndications:ILD (interstitial lung disease) ([facility]),Chronic respiratory failure with hypoxia (HCC) 2.5 mg NEBULIZER PRN 10/11/2024 10/11/2025 Active documented as of this encounter (statuses as of 01/15/2025) Active Problems Problem Noted Date Diagnosed Date [...] by vascular, reports upcoming carotid surgery at [facility]. She states she has rx for atorvastatin and plavix to picker and sorter load and unload at pharmacy. Type 2 diabetes mellitus wit [...] evidently given by vascular, has to picker and sorter load and unload rx documented as of this encounter (statuses as of 01/15/2025) Resolved Problems Problem Noted Date Diagnosed Date [...] as of this encounter (statuses as of 01/15/2025) Immunizations Name Administration Dates Next Due COVID-19 mRNA, LNP-s, No Pre serve, 2-Dose Series ([employer]) 01/08/2021,12/18/2020 COVID-19, LNP-s, No Preserve , Navarro-sucrose, Ages 12+ (Pfizer) 2022,10/01/2021 COVID-19, MRNA-LNP, PF, 30 M CG/0.3 mL, 12 YRS AND ABOVE, IM (PFIZER-Comirnat) 07/31/2024,07/26/2023 Pneumococcal Conjugate Vacci ne, 20-valent ([id number]) 03/12/2022 Pneumococcal Polysaccharide PPV23 (Pneumovax) 08/22/2009,06/15/2006 RSV [...] Progress Notes * Angi Hagen, Community Health Care Transition Manager - 01/14/2025 2:54 PM EDT Telemedicine visit: No Community Health Worker (CHW) documentation: This CHW placed a general f/u PC to patient in regards to applying for medicaid and re-establishingthis and to see if her Rolator was received yet. Patient reported that she was able to make contact with the assistance office and got that all cleared up. She got a new case checker there and patient was not aware of this and things were not put into the system correctly and this patient has to reapply once the proper financial documents are received. Patient reported that qualifying should not be a problem as per case checker at the assistance office. Patient cannot afford the $100 dollar co-pay for the new Rolator so she is not able to get it. Was advised by the [employer] where she can purchase one for a [...] Angi Hagen- Community Health Worker 1 Support Services/[facility] [email or web address] documented in this encounter Miscellaneous Notes * Telephone Encounter - Little Flores RN - 01/15/2025 9:52 AM EDT Please call and reschedule patient appt. What test is she talking about? Patient was to see Dr. Meyers. Please forward to correct pool if I sent to one in error. Thank you. Primary CM: ROMEO Morales, roll capper [address] [phone] Thank you. documented in this encounter Plan of Treatment Upcoming Encounters Date Type Department Care Team (Late st Contact Info) Description 02/05/2025 1:00 PM EDT Office Visit Family Practice [address] [place] [address] [address] [place] [address] Galdino Andujar, [address] [place] [address] 02/14/2025 1:30 PM EDT Home Visit [facility] [place] [address] [place] [address] Jarrett Mathis, RN [address] [place] [address] 06/13/2025 1:30 PM EDT Imaging Radiology [address] [place] [phone] 06/24/2025 11:30 AM EDT Office Visit Pulmonary Medicine, [facility] [address] [place] [phone] Jhonny Holley MD [address] [address] 11/11/2025 1:15 PM EST Imaging Radiology [address] [place] [phone] Scheduled Procedures Name Priority Associated Diagnoses Date/Ti me COLONOSCOPY FLEXIBLE PROXIMAL DIAGNOSTIC Recall Colon cancer screening Health Maintenance Due Date Last Done Comments Cologuard 2000 Fecal Occult Blood Test 2000 Sigmoidoscopy 2000 CKD PHOS USE SMARTSET 95073 12/26/20240 10/2023, 02/11/2023, 01/07/2022, Additional history exists Adult Wellness Visit 02/13/2025 02/14/2024, 08/05/20 22 GFR 04/21/2025 10/22/2024, 12/11/2023, 06/26/2024, Additional history exists HbA1c 04/21/2025 10/22/2024, 09/2023, 03/26/2024, Additional history exists Mammogram 06/12/2025 06/12/2024, 05/27, 04/21/2023, Additional history exists Diabetic Eye Exam 07/06/2025 07/06/2024, , 07/06/2024, Additional history exists Albumin/Creatinine Ratio 10/22/2025 025, 08/05/2023, 11/01/2022, Additional history exists CKD HGB USE SMARTSET 72662 10/22/202510/22, 10/22/2024, 10/11/2024, Additional history exists Diabetic [...] Documents on File Type Date Recorded Patient Apparel Merchandiser Expl anation POLST 03/19/2020 4:25 PM POLST [...] (no specific identity) Health Care Power of Resp Therapist Princess Other - (no specific identity) Health Care Power of Resp Therapist Care Teams Marble Machine Operator Relationship Specialty Start Date End Date Galdino Andujar DO [address] [place] [address] PCP - General Internal Medicine 03/08/24 documented as of this encounter
--- OUTSIDE RECORDS SUMMARY | 2025-01-23 23:54 | External Medical Summary | Summary of Care ---
Author Name Unknown Organization [facility] Address [address] [place] [address] Phone [phone] Care Team Providers Care Mid Level Practitioner Name Role Phone Pratima Galdino Neal DO Primary Care Provider [phone] Encounter Details Date Type Department Care Team (Late st Contact Info) Description 12/27/2024 1:40 PM EDT Home Visit Care Coordination and Integration [address] [place], [place] [phone] Angi Hagen Community Health Fire Extinguisher Sprinkler Inspector [address] [place] [address] Allergies Active Allergy Reactions Criticality Noted Date [...] as of this encounter (statuses as of 12/27/2024) Medications oxygen GASIndications:ELISSA (obstructive sleep apnea) Use [...] G7 Sensor Use as directed. (From [facility]) 06/01/20 Active Aspirin 81 MG Oral Tablet Delayed ReleaseIndications :Type 2 diabetes mellitus with hemoglobin A1c goal of 7.0%-8.0% (HCC) Take 1 Tablet by mouth in the morning. 28 Tablet 11/07/19 25 Active Cholecalciferol 25 MCG (1000 [...] [facility]Chronic diastolic congestive heart failure (HCC) Take 1 Tablet by mouth in the morning and 1 Tablet before bedtime. 56 Tablet 11/07/19 25 Active NovoLOG FlexPen 100 UNIT/ML Subcutaneous Solution Pen-injector (insulin aspart)Indications :Type 2 diabetes mellitus with hemoglobin A1c goal of 7.0%-8.0% ([facility]) Inject 8 units with breakfast and 6 [...] or juice.. 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),Chronic diastolic congestive heart failure (HCC) Take [...] [facility]) INJECT 38 UNITS UNDER THE SKIN IN THE EVENING 15 mL 11/14/2024 3:25 PM EST 11/07/19 25 Active Clopidogrel Bisulfate 75 MG Oral Tablet (pLAVix) Take 1 Tablet by mouth in the morning. 28 Tablet 11 12/04/2024 11:11 AM EDT 11/07/19 25 Active Comfort EZ Pen [place] 31G X 8 MM (Insulin Pen Needle) [...] [facility]) Inject 10 mg under the skin once a week. 2 mL 11 12/27/2024 11:30 AM EDT 12/25/19 25 026 Active Additional Information Patient not taking.Reported on 12/27/2024 Fluconazole 150 MG Oral Tablet (Diflucan) Take 1 Tablet by mouth once for 1 dose. 1 Tablet 12/27/2024 11:30 AM EDT 12/26/19 25 025 Active Hospital, Clinic, or Other [...] as of this encounter (statuses as of 12/27/2024) Active Problems Problem Noted Date Diagnosed Date [...] vascular, reports upcoming carotid surgery at [facility]. She states she has [...] 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 Atherosclerosis of [place] co ronary artery without angina pectoris 12/31/2021 [...] as of this encounter (statuses as of 12/27/2024) Resolved Problems Problem Noted Date Diagnosed Date [...] as of this encounter (statuses as of 12/27/2024) Immunizations Name Administration Dates Next Due COVID-19 mRNA, LNP-s, No Pre serve, 2-Dose Series ([employer]) 01/08/2021,12/18/2020 COVID-19, LNP-s, No Preserve , Navarro-sucrose, Ages 12+ (Pfizer) 2022,10/01/2021 COVID-19, MRNA-LNP, PF, 30 M CG/0.3 mL, 12 YRS AND ABOVE, IM ([facility]) 07/31/2024,07/26/2023 Pneumococcal Conjugate Vacci ne, 20-valent ([email or web address]) 03/12/2022 Pneumococcal Polysaccharide PPV23 (Pneumovax) 08/22/2009,06/15/2006 RSV [...] Reading Time Taken Comments Blood Pressure 100/60 12/27/2024 2:59 PM EDT Pulse 90 12/27/2024 2:59 PM EDT Temperature 36.9 °C (98.4 °F) 12/27/2024 2:59 PM ED T Respiratory Rate - - Oxygen Saturation 98% 12/27/2024 2:59 PM EDT Inhaled Oxygen Concentration - - Weight - - Height - - Body Mass Index - - documented in this encounter Progress Notes * Little Flores RN - 12/27/2024 3:21 PM EDT Order placed with [employer] for [facility] for larger rollator I guess right now we just have to wait until we hear back from the other case management social worker for questions on medicaid Still GHP secure in [place] * Angi Hagen, Community Health Fire Extinguisher Sprinkler Inspector - 12/27/2024 1:52 PM EDT Telemedicine visit: No Community Health Worker (CHW) documentation: This CHW facilitated home visit with patient Patient presented very tearful and upset over the fact that she lost her medical assistance and does not know why she lost it. Patient cannot afford her O2 a month which is $43 dollars a month, cannot afford co-pays for things anymore. Patient has been trying to reach her case management social worker through the assistance office for days and cannot get through to anyone. Patient is very frustrated about everything and is very depressed. Patient in a very negative and depressed state. Discussed the walker and patient only qualifies for a standard rolator and the seat is not big enough for her and she needs a larger one. DME provider contacted her through email and told her they closed the case because she refused the rolator she qualifies for. This CHW sent teams message to Marci to look into this issue. CORI Fitch is working on getting the order re-submitted for a largerheavy duty rollator. This CHW placed PC to [facility] Assistance office and had to leave a message regarding patientsMedical Assistance and to calls this CHW back or patient back and left contact info. This CHW completed a bottles out med review/blister packs VS CHW survey Angi Hagen- Community Health Worker 1 Support Services/[facility] [employer] Electronically signed by Angi Hagen Community Health Fire Extinguisher Sprinkler Inspector at 12/27/2024 3:10 PM EDT documented in this encounter Plan of Treatment Upcoming Encounters Date Type Department Care Team (Late st Contact Info) Description 01/09/2025 9:00 AM EDT Office Visit Urogynecology [facility] [address] [address] Al Meyers MD [address] [place] [address] 02/05/2025 1:00 PM EDT Office Visit Family Practice [address] [facility] [place] [address] [place] [address] Galdino Andujar, [address] [place] [address] 02/14/2025 1:30 PM EDT Home Visit [facility] [address] [address] Jarrett Mathis, LEXI [address] [place] [address] 06/13/2025 1:30 PM EDT Imaging Radiology [address] [place] [phone] 06/24/2025 11:30 AM EDT Office Visit Pulmonary Medicine, [facility] [address] [place] [phone] Jhonny Holley MD [address] [address] 11/11/2025 1:15 PM EST Imaging Radiology [address] [place] [phone] Scheduled Procedures Name Priority Associated Diagnoses Date/Ti me COLONOSCOPY FLEXIBLE PROXIMAL DIAGNOSTIC Recall Colon cancer screening Health Maintenance Due Date Last Done Comments Cologuard 2000 Fecal Occult Blood Test 2000 Sigmoidoscopy 2000 CKD PHOS USE SMARTSET 86208 12/26/2024 04/0 10/2023, 02/11/2023, 01/07/2022, Additional history exists Adult Wellness Visit 02/13/2025 02/14/2024, 08/05/20 22 GFR 04/21/2025 10/22/2024, 08/27, 06/26/2024, Additional history exists HbA1c 04/21/2025 10/22/2024, 10/0 09/2023, 03/26/2024, Additional history exists Mammogram 06/12/2025 06/12/2024, 05/27, 04/21/2023, Additional history exists Diabetic Eye Exam 07/06/2025 07/06/2024, , 07/06/2024, Additional history exists Albumin/Creatinine Ratio 10/22/2025 025, 08/05/2023, 11/01/2022, Additional history exists CKD HGB USE SMARTSET 30000 10/22/202510/22, 10/22/2024, 10/11/2024, Additional history exists Diabetic [...] Documents on File Type Date Recorded Patient Shelver Expl anation POLST 03/19/2020 4:25 PM POLST [...] specific identity) Health Care Power of Manager Adult Princess Allen Other - (no specific identity) Health Care Power of Manager Adult Care Teams Mid Level Practitioner Relationship Specialty Start Date End Date Galdino Andujar DO [address] [place] [address] PCP - General Internal Medicine 03/08/24 documented as of this encounter
--- OUTSIDE RECORDS SUMMARY | 2025-01-23 23:54 | External Medical Summary | Summary of Care ---
Author Name Unknown Organization [facility] Address [address] [place] [address] Phone [phone] Care Team Providers Care Well Drill Operator Name Role Phone Galdino Andujar DO Primary Care Provider [phone] Encounter Details Date Type Department Care Team (Late st Contact Info) Description 12/25/2024 1:00 PM EDT Home Visit [facility] [address] [place] [address] Sathish Lundberg PA-C [address] [place] [phone] Chronic hypoxemic respiratory failure (HCC)*; 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 3b chronic kidney disease (HCC); ELISSA (obstructive sleep apnea); Financial insecurity Allergies Active Allergy Reactions Criticality Noted Date [...] as of this encounter (statuses as of 12/30/2024) Medications oxygen GASIndications:ELISSA (obstructive sleep apnea) Use [...] Dexcom G7 Sensor Use as directed. (From [facility]) 06/01/20 Active Aspirin 81 MG Oral [...] needed for Cramping. 180 Tablet 3 5 12:20 PM EDT 11/07/19 25 Active DULoxetine HCl 60 MG Oral Capsule Delayed Release Particles (Cymbalta)Indicati ons:Fibromyalgia,M ajor depressive disorder, recurrent, moderate (HCC) Take 1 Capsule by mouth in the morning. 28 Capsule 5 5 11:11 AM EDT 11/07/19 25 Active Apixaban 2.5 MG Oral Tablet (Eliquis)Indicatio ns:Recurrent deep vein thrombosis (DVT) of both lower extremities (HCC) Take 1 Tablet by mouth in the morning and 1 Tablet before bedtime. 56 Tablet 11 5 11:11 AM EDT 11/07/19 25 Active Ferrous Sulfate 325 (65 Fe) MG Oral Tablet (Feosol)Indication s:Anemia Take 1 Tablet by mouth in the morning and 1 Tablet before bedtime. 56 Tablet 11 11/07/19 25 Active Fluticasone Propionate 50 MCG/ACT Nasal Suspension (Flonase) Administer 2 Sprays into nostril in the morning and 2 Sprays before bedtime. 16 g 3 5 11:11 AM EDT 11/07/19 25 Active Furosemide 40 MG Oral Tablet (Lasix)Indications :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 3b chronic kidney disease (HCC) Take 1.5 Tablets by mouth 2 times a day. 84 Tablet 5 11:11 AM EDT 11/07/19 25 Active Gabapentin 300 MG Oral Capsule (Neurontin)Indicat ions:Fibromyalgia, Lumbar radiculopathy Take 1 Capsule by mouth in the morning and 1 Capsule before bedtime. 60 Capsule 5 11:11 AM EDT 11/07/19 25 Active Levothyroxine Sodium 200 MCG Oral Tablet (Levoxyl)Indicatio ns:Postsurgical hypothyroidism Take 1 Tablet by mouth daily first thing in the morning. (at least 30 min prior to breakfast or other meds) 28 Tablet 5 11:11 AM EDT 11/07/19 25 Active Magnesium [...] mouth in the morning. 28 Capsule 5 11:11 AM EDT 11/07/19 25 Active Polyethylene [...] [facility]Chronic diastolic congestive heart failure ([facility]) Take 1 Tablet by mouth in the morning and 1 Tablet before bedtime. 56 Tablet 5 5 11:11 AM EDT 11/07/19 25 Active rOPINIRole HCl 2 MG Oral Tablet (Requip)Indication s:Restless legs syndrome Take 1 Tablet by mouth at bedtime. 28 Tablet 5 5 11:11 AM EDT 11/07/19 25 Active Rosuvastatin Calcium 5 MG Oral Tablet (Crestor)Indicatio ns:Dyslipidemia Take 1 Tablet by mouth in the morning. 28 Tablet 5 5 11:11 AM EDT 11/07/19 25 Active Sennosides-Docusat e Sodium 8.6-50 MG Oral Tablet (Senna-Time S) Take 1 Tablet by mouth in the morning and 1 Tablet before bedtime. 100 Tablet 6 11/07/19 25 Active traZODone HCl 50 MG Oral Tablet (Desyrel) Take 1 Tablet by mouth at bedtime. 28 Tablet 5 5 11:11 AM EDT 11/07/19 25 Active Tresiba FlexTouch 100 UNIT/ML Subcutaneous Solution Pen-injector (Insulin Degludec)Indicatio ns:Type 2 diabetes mellitus with hemoglobin A1c goal of 7.0%-8.0% ([facility]) INJECT 38 UNITS UNDER THE SKIN IN THE EVENING 15 mL 5 3:25 PM EST 11/07/19 25 Active Clopidogrel Bisulfate 75 MG Oral Tablet (pLAVix) Take 1 Tablet by mouth in the morning. 28 Tablet 11 5 11:11 AM EDT 11/07/19 25 Active Comfort EZ Pen [place] 31G X 8 MM (Insulin Pen Needle) use five times daily 500 Each 2 5 11:42 AM EST 11/16/19 25 Active tiZANidine HCl 4 MG Oral Tablet (Zanaflex)Indicati ons:Spinal stenosis of lumbar region without neurogenic claudication Take 1 Tablet by mouth every 6 hours as needed for Muscle spasms. 60 Tablet 5 2:23 PM EDT 12/07/19 25 Active clonazePAM 0.5 MG Oral Tablet (KlonoPIN)Indicati ons:Restless legs syndrome,Anxiety state Take 1 Tablet by mouth in the morning and 1 Tablet at noon and 1 Tablet before bedtime. 84 Tablet 5 3:00 PM EDT 12/14/19 25 Active traMADol HCl 50 MG Oral Tablet (Ultram)Indication s:Lumbar radiculopathy,Prim elif osteoarthritis of both knees Take 1 Tablet by mouth every 8 hours as needed for Pain, Severe. 90 Tablet 5 12:20 PM EDT 12/18/19 25 Active Cefdinir 300 MG Oral Capsule (Omnicef) take 1 capsule by mouth twice daily for 5 days 10 Capsule 5 3:00 PM EDT 12/15/19 25 Active Additional Information Patient not taking.Reported on 12/27/2024 Tamsulosin HCl 0.4 MG Oral Capsule (Flomax) take 1 capsule by mouth at bedtime 30 Capsule 5 3:00 PM EDT 12/15/19 25 Active Lactobacillus Oral Tablet take 1 tablet by mouth daily 50 Tablet 5 12:20 PM EDT 12/15/19 25 Active Mounjaro 10 MG/0.5ML Subcutaneous Solution Auto-injector (Tirzepatide)Indic ations:Type 2 diabetes mellitus with stage 3b chronic kidney disease, with long-term current use of insulin (HCC) Inject 10 mg under the skin once a week. 2 mL 11 5 11:30 AM EDT 12/25/19 25 026 Active Additional Information Patient not taking.Reported on 12/27/2024 Fluconazole 150 MG Oral Tablet (Diflucan) Take 1 Tablet by mouth once for 1 dose. 1 Tablet 5 11:30 AM EDT 12/26/19 25 025 Hospital, Clinic, or Other Facility [...] as of this encounter (statuses as of 12/30/2024) Active Problems Problem Noted Date Diagnosed Date [...] by vascular, reports upcoming carotid surgery at [facility]. She states she has rx [...] 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 Atherosclerosis of [place] co ronary artery without angina pectoris 12/31/2021 [...] o BMP o Pro-BNP Additional Comments: o [facility] today Assessment & Plan (02/03/2023 12:32 PM [...] significant nocturnal hypoxemia Zhane Assessment & Plan (12/30/2024 4:34 PM EDT): [...] as of this encounter (statuses as of 12/30/2024) Resolved Problems Problem Noted Date Diagnosed Date [...] as of this encounter (statuses as of 12/30/2024) Immunizations Name Administration Dates Next Due COVID-19 mRNA, LNP-s, No Pre serve, 2-Dose Series (Think Silicon) 01/08/2021,12/18/2020 COVID-19, LNP-s, No Preserve , Navarro-sucrose, Ages 12+ (Pfizer) 2022,10/01/2021 COVID-19, MRNA-LNP, PF, 30 M CG/0.3 mL, 12 YRS AND ABOVE, IM (PFIZER-Comirnaty) 07/31/2024,07/26/2023 Pneumococcal Conjugate Vacci ne, 20-valent ([id number]) 03/12/2022 Pneumococcal Polysaccharide PPV23 (Pneumovax) 08/22/2009,06/15/2006 RSV [...] as of this encounter Progress Notes * Sathish Lundberg PA-C - 12/25/2024 1:08 PM EDT Images from the original note were not included. 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 Needs ongoing assistance with finances to ensure meds and oxygen Awaiting new rollator, current is broken Scheduled appointments in the next 60 days: Future Appointments-next 60 days Date/Time Provider Specialty Dept Phone 12/27/2024 1:40 PM Angi Hagen, [facility] Medicine [phone] 01/09/2025 9:00 AM (Arrive by 8:45 AM) Al Meyers MD Gynecology Urology [phone] 02/05/2025 1:00 PM (Arrive by 12:45 PM) Galdino Andujar, Family Medicine [phone] 02/14/2025 1:30 PM Jarrett Mathis RN [facility] [phone] 06/13/2025 1:30 PM (Arrive by 1:15 PM) [id number] [facility] Radiology [phone] 06/24/2025 11:30 AM (Arrive by 11:15 AM) Jhonny Holley MD Pulmonary [phone] 11/11/2025 1:15 PM [address]1 [facility] Radiology [phone] A total of 40 minutes was spent face to face (via video-based telemedicine if designated as a telemedicine visit) Subjective Subjective Is this a Telemedicine Visit? No, this is an Home Visit. Reason For [facility] Visit: Transition of Care Current Concerns: Stephanie Camp is a 69 year old female seen today for a [facility] provider visit. 12/08-12/14/24- [facility] - UTI Today's concerns: Overall feeling well Biggest concern today is financial Reports recently losing her medical assistance and having difficulty covering cost for meds and oxygen Going to be working with [facility] and assistance office Breathing at baseline Denies any SOB at rest Continues with [facility] Reports she has not been compliant with her CPAP, due to sleeping in the recliner and cpap is set up in the bedroom Recent admission at [facility] as above for UTI Continues to follow with urology for routine ureteral stent exchanges Additional Current Outpatient Medications Medication Sig Dispense Refill oxygen GAS Use 4 L/min(Oxygen) as directed continuous. CPAP every night at bedtime. (Patient not taking: Reported on 12/17/2024) Acetaminophen 500 MG Oral Tablet (Tylenol) Take 2 Tablets by mouth every 8 hours as needed for Pain, Breakthrough. 100 Tablet 0 DIURETIC TITRATION PLAN If no improvement on day 3, contact heart failure managing provider. 1 Each0 Dexcom G7 Sensor Use as directed. (From [facility]) Aspirin 81 MG Oral Tablet Delayed Release Take 1 Tablet by mouth in the morning. 28 Tablet 11 Cholecalciferol 25 MCG (1000 UT) Oral Capsule Take 1 Capsule by mouth in the morning. 28 Capsule 5 Dicyclomine HCl 20 MG Oral Tablet (Bentyl) Take 1 Tablet by mouth 4 times a day as needed for Cramping. 180 Tablet 3 DULoxetine HCl 60 MG Oral Capsule Delayed Release Particles (Cymbalta) Take 1 Capsule by mouth in the morning. 28 Capsule 5 Apixaban 2.5 MG Oral Tablet (Eliquis) Take 1 Tablet by mouth in the morning and 1 Tablet before bedtime. 56 Tablet 11 Ferrous Sulfate 325 (65 Fe) MG Oral Tablet (Feosol) Take 1 Tablet by mouth in the morning and 1 Tablet before bedtime. 56 Tablet 11 Fluticasone Propionate 50 MCG/ACT Nasal Suspension (Flonase) Administer 2 Sprays into nostril in the morning and 2 Sprays before bedtime. 16 g 3 Furosemide 40 MG Oral Tablet (Lasix) Take 1.5 Tablets by mouth 2 times a day. 84 Tablet 11 Gabapentin 300 MG Oral Capsule (Neurontin) Take 1 Capsule by mouth in the morning and 1 Capsule before bedtime. 60 Capsule 5 Levothyroxine Sodium 200 MCG Oral Tablet (Levoxyl) Take 1 Tablet by mouth daily first thing in the morning. (at least 30 min prior to breakfast or other meds) 28 Tablet 11 Magnesium Oxide -Mg Supplement 400 (240 Mg) MG Oral Tablet (Mag-Ox) Take 1 Tablet by mouth in the morning and 1 Tablet before bedtime. 56 Tablet 11 NovoLOG FlexPen 100 UNIT/ML Subcutaneous Solution Pen-injector (insulin aspart) Inject 8 units withbreakfast and 6 units lunch and 10 units with dinner + sliding scale 1 units for every 30 units BG > 150. 150 mL 3 Omeprazole 20 MG Oral Capsule Delayed Release (PriLOSEC) Take 1 Capsule by mouth in the morning. 28Capsule 11 Polyethylene Glycol 3350 17 GM/SCOOP Oral Powder (MiraLax) Take 17 g by mouth in the morning. Dissolve one heaping tablespoon in 8 ounces of water or juice.. (Patient not taking: Reported on 12/20/2024) 476 g 3 Potassium Chloride Ayleen ER 20 MEQ Oral Tablet Extended Release Take 1 Tablet by mouth in the morning and 1 Tablet before bedtime. 56 Tablet 5 rOPINIRole HCl 2 MG Oral Tablet (Requip) Take 1 Tablet by mouth at bedtime. 28 Tablet 5 Rosuvastatin Calcium 5 MG Oral Tablet (Crestor) Take 1 Tablet by mouth in the morning. 28 Tablet 5 Sennosides-Docusate Sodium 8.6-50 MG Oral Tablet (Senna-Time S) Take 1 Tablet by mouth in the morning and 1 Tablet before bedtime. 100 Tablet 6 traZODone HCl 50 MG Oral Tablet (Desyrel) Take 1 Tablet by mouth at bedtime. 28 Tablet 5 Tresiba FlexTouch 100 UNIT/ML Subcutaneous Solution Pen-injector (Insulin Degludec) INJECT 38 UNITSUNDER THE SKIN IN THE EVENING 15 mL 5 Clopidogrel Bisulfate 75 MG Oral Tablet (pLAVix) Take 1 Tablet by mouth in the morning. 28 Tablet 11 Comfort EZ Pen [place] 31G X 8 MM (Insulin Pen Needle) use five times daily 500 Each 2 tiZANidine HCl 4 MG Oral Tablet (Zanaflex) Take 1 Tablet by mouth every 6 hours as needed for Muscle spasms. 60 Tablet 0 clonazePAM 0.5 MG Oral Tablet (KlonoPIN) Take 1 Tablet by mouth in the morning and 1 Tablet at noonand 1 Tablet before bedtime. 84 Tablet 0 traMADol HCl 50 MG Oral Tablet (Ultram) Take 1 Tablet by mouth every 8 hours as needed for Pain, Severe. 90 Tablet 0 Cefdinir 300 MG Oral Capsule (Omnicef) take 1 capsule by mouth twice daily for 5 days 10 Capsule 0 Tamsulosin HCl 0.4 MG Oral Capsule (Flomax) take 1 capsule by mouth at bedtime 30 Capsule 0 Lactobacillus Oral Tablet take 1 tablet by mouth daily 50 Tablet 0 Mounjaro 10 MG/0.5ML Subcutaneous Solution Auto-injector (Tirzepatide) Inject 10 mg under the skin once a week. 2 mL 11 Current Facility-Administered Medications Medication Dose Route Frequency Provider Last Rate Last Admin Albuterol Sulfate (Proventil) (2.5 MG/3ML) 0.083% inhalation solution 2.5 mg 2.5 mg Nebulizer PRN Albuterol Sulfate (Proventil) (5 MG/ML) 0.5% *conc* inhalation solution 2.5 mg 2.5 mg Nebulizer PRN2.5 mg at 11/08/24 1347 I have reviewed the following results: Urine Culture and Urinalysis, POC Lab Results Component Value Date/Time LEFT VENTRICULAR EJECTION FRACTION 55 07/14/2023 01:38 PM Objective Objective There were no vitals filed for this visit. Last Weights: Wt Readings from Last 3 Encounters: 12/20/24 125.5 kg (276 lb 9.6 oz) 12/19/24 123.4 kg (272 lb) 11/27/24 122.8 kg (270 lb 11.2 oz) Last BPs: BP Readings from Last 4 Encounters: 12/20/24 124/64 12/19/24 108/80 12/17/24 136/70 11/27/24 131/75 General: alert and no distress Neuro: alert & oriented x 3 with fluent speech Heart: regular rate & rhythm and no murmur Lungs: lungs clear to auscultation, no wheeze, no rales, no rhonchi Abdomen: abdomen soft, non-tender, and obese Ext: +edema bilat LE documented in this encounter Miscellaneous Notes * Assessment & Plan Note - Sathish Lundberg PA-C - 12/30/2024 6:47 PM EDT Associated Problem(s): Chronic hypoxemic respiratory failure (HCC) Continuous o2 supplement * Assessment & Plan Note - Sathish Lundberg PA-C - 12/30/2024 4:34 PM EDT Associated Problem(s): Hypertensive heart and [...] Plan Note - Sathish Lundberg PA-C - 12/30/2024 4:34 PM EDT Associated Problem(s): ELISSA (obstructive sleep apnea) Encouraged increased compliance with CPAP documented in this encounter Plan of Treatment Upcoming Encounters Date Type Department Care Team (Late st Contact Info) Description 01/09/2025 9:00 AM EDT Office Visit Urogynecology [facility] [address] [place] [address] Al Meyers MD [address] [place] [address] 02/05/2025 1:00 PM EDT Office Visit Family Practice [address] [place] [address] [place] [address] Galdino Andujar, [address] [place] [address] 02/14/2025 1:30 PM EDT Home Visit [facility] [address] [facility] [place] [address] Jarrett Mathis, LEXI [address] [facility] [place] [address] 06/13/2025 1:30 PM EDT Imaging Radiology [address] [facility] [place] [phone] 06/24/2025 11:30 AM EDT Office Visit Pulmonary Medicine, [facility] [address] [facility] [place] [phone] Jhonny Holley MD [address] [address] 11/11/2025 1:15 PM EST Imaging Radiology [address] [place] [phone] Scheduled Procedures Name Priority Associated Diagnoses Date/Ti me COLONOSCOPY FLEXIBLE PROXIMAL DIAGNOSTIC Recall Colon cancer screening Health Maintenance Due Date Last Done Comments Cologuard 2000 Fecal Occult Blood Test 2000 Sigmoidoscopy 2000 CKD PHOS USE SMARTSET 21213 12/26/2024 04/0 10/2023, 02/11/2023, 01/07/2022, Additional history [...] Additional history exists CKD HGB USE SMARTSET 40705 10/22/202510/22, 10/22/2024, 10/11/2024, Additional history exists Diabetic [...] CKD stage [address] ([facility])- Primary Fibromyalgia Mylagia and myositis, unspecified Primary osteoarthritis of both knees Primary localized osteoarthrosis, lower leg Anxiety state Anxiety state, unspecified Recurrent deep vein thrombosis (DVT) of both lower extremities (HCC) Chronic hypoxemic respiratory failure (HCC) Chronic respiratory failure 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 3b chronic kidney disease, with long-term current use of insulin ([facility]) Restless legs syndrome Restless legs syndrome (RLS) ELLIE (generalized anxiety disorder) Generalized anxiety disorder Mild episode of recurrent major depressive disorder ([facility]) Advanced care planning/counseling discussion Other specified counseling ILD (interstitial lung disease) ([facility])- Primary Postinflammatory pulmonary fibrosis Fibromyalgia Mylagia and myositis, unspecified Moderate episode of recurrent major depressive disorder ([facility]) Primary osteoarthritis of both knees Primary localized osteoarthrosis, lower leg Chronic hypoxemic respiratory failure (HCC) Chronic respiratory failure 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 3b chronic kidney disease ([facility]) Advanced care planning/counseling discussion- Primary Other specified counseling Atherosclerosis of [place] coronary artery of [place] heart without angina pectoris Carotid artery stenosis, asymptomatic, right Essential hypertension with goal blood pressure less than 140/[address] [place] [address] Other postprocedural status Hypertensive [...] than 8.0% ([facility]) Fibromyalgia Mylagia and myositis, unspecified Restless legs syndrome Restless legs syndrome (RLS) Chronic kidney disease, stage 3b ([facility]) History of pulmonary embolus (PE) Personal history of pulmonary embolism Moderate episode of recurrent major depressive disorder ([facility]) Advanced care planning/counseling discussion- Primary Other specified counseling Atherosclerosis of [place] coronary artery of [place] heart without angina pectoris Frank filter in [...] of insulin (HCC) Chronic hypoxemic respiratory failure (HCC)- Primary Chronic respiratory failure 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 3b chronic kidney disease (HCC) ELISSA (obstructive sleep apnea) Obstructive sleep apnea (adult) (pediatric) Financial insecurity Screening mammogram for breast cancer documented in this encounter Advance Directives Documents on File Type Date Recorded Patient Runner Out Expl anation POLST 03/19/2020 4:25 PM POLST [...] (no specific identity) Health Care Power of Furnace Charging Machine Operator Princess Allen Other - (no specific identity) Health Care Power of Furnace Charging Machine Operator Care Teams Well Drill Operator Relationship Specialty Start Date End Date Galdino Andujar DO [address] [place] [address] PCP - General Internal Medicine 03/08/24 documented as of this encounter
--- OUTSIDE RECORDS SUMMARY | 2025-01-23 23:54 | External Medical Summary | Summary of Care ---
Author Name Unknown Organization [facility] Address [address] [place] [address] Phone [phone] Care Team Providers Care Chain Splitter Name Role Phone Galdino Andujar DO Primary Care Provider [phone] Reason for Visit * Reason Comments Medication Refill Encounter Details Date Type Department Care Team (Late st Contact Info) Description 12/31/2024 Refill Pharmacy, [facility] [address] [facility] [place] [address] Galdino Andujar DO [address] [place] [address] Spinal stenosis of lumbar region without neurogenic claudication; Restless legs syndrome; Anxiety state; Lumbar radiculopathy; Primary osteoarthritis of both knees Allergies Active Allergy Reactions Criticality Noted Date [...] as of this encounter (statuses as of 01/01/2025) Medications oxygen GASIndications:ELISSA (obstructive sleep apnea) Use [...] [facility]) 06/01/20 Active Aspirin 81 MG Oral Tablet [...] congestive heart failure ([facility]) Take 1 Tablet by mouth [...] before bedtime. 100 Tablet 11/07/19 25 Active traZODone HCl 50 MG Oral Tablet (Desyrel) Take 1 Tablet by mouth at bedtime. 28 Tablet 12/04/2024 11:11 AM EDT 11/07/19 25 Active Tresiba FlexTouch 100 UNIT/ML Subcutaneous Solution Pen-injector (Insulin Degludec)Indicatio ns:Type 2 diabetes mellitus with hemoglobin A1c goal of 7.0%-8.0% ([facility]) INJECT 38 UNITS UNDER THE SKIN IN THE EVENING 15 mL 11/14/2024 3:25 PM EST 11/07/19 25 Active Clopidogrel Bisulfate 75 MG Oral Tablet (pLAVix) Take 1 Tablet by mouth in the morning. 28 Tablet 12/04/2024 11:11 AM EDT 11/07/19 25 Active Comfort EZ Pen [place] 31G X 8 MM (Insulin Pen Needle) [...] current use of insulin ([facility]) Inject 10 mg under the [...] as of this encounter (statuses as of 01/01/2025) Active Problems Problem Noted Date Diagnosed Date [...] 8:05 AM EDT): Home PT to start [place] filter in place 08/19/2014 History of pulmonary [...] as of this encounter (statuses as of 01/01/2025) Resolved Problems Problem Noted Date Diagnosed Date [...] as of this encounter (statuses as of 01/01/2025) Immunizations Name Administration Dates Next Due COVID-19 mRNA, LNP-s, No Pre serve, 2-Dose Series ([facility]) 01/08/2021,12/18/2020 COVID-19, LNP-s, No Preserve , Navarro-sucrose, Ages 12+ (Pfizer) 2022,10/01/2021 COVID-19, MRNA-LNP, PF, 30 M CG/0.3 mL, 12 YRS AND ABOVE, IM (PFIZER-Comirnaty) 07/31/2024,07/26/2023 Pneumococcal Conjugate Vacci ne, 20-valent ([id number]) 03/12/2022 Pneumococcal Polysaccharide PPV23 (Pneumovax) 08/22/2009,06/15/2006 RSV [...] encounter Miscellaneous Notes * Telephone Encounter - Ana Ramírez [facility] - 12/31/2024 3:26 PM EDT No prescriptions requested or ordered in this encounter * Telephone Encounter - Shira Gross LPN - 12/31/2024 2:36 PM EDT Last dose of tramadol--12/17/2024 * Telephone Encounter - Galdino Andujar DO - 12/31/2024 2:33 PM EDTPending Prescriptions: Disp Refills tiZANidine HCl 4 MG Oral Tablet (Zanaflex) 60 Tab*0 Sig: Take 1 Tablet by mouth every 6 hours as needed for Muscle spasms. clonazePAM 0.5 MG Oral Tablet (KlonoPIN) 84 Tab*0 Sig: Take 1 Tablet by mouth in the morning and 1 Tablet at noon and 1 Tablet before bedtime. traMADol HCl 50 MG Oral Tablet (Ultram) 90 Tab*0 Sig: Take 1 Tablet by mouth every 8 hours as needed for Pain, Severe. * Telephone Encounter - Galdino Andujar DO - 12/31/2024 2:32 PM EDT Requests are early Confirm with [facility] that they need the medications so soon. * Telephone Encounter - Rose Avila [facility] - 12/31/2024 11:33 AM EDT Pending Prescriptions: Disp Refills tiZANidine HCl 4 MG Oral Tablet (Zanaflex) 60 Tab*0 Sig: Take 1 Tablet by mouth every 6 hours as needed for Muscle spasms. clonazePAM 0.5 MG Oral Tablet (KlonoPIN) 84 Tab*0 Sig: Take 1 Tablet by mouth in the morning and 1 Tablet at noon and 1 Tablet before bedti me. traMADol HCl 50 MG Oral Tablet (Ultram) 90 Tab*0 Sig: Take 1 Tablet by mouth every 8 hours as needed for Pain, Severe. documented in this encounter Plan of Treatment Upcoming Encounters Date Type Department Care Team (Late st Contact Info) Description 01/09/2025 9:00 AM EDT Office Visit Urogynecology [facility] [address] [place] [address] Al Meyers MD 132 [facility] [place] [address] 02/05/2025 1:00 PM EDT Office Visit Family Practice [address] [facility] [address] [place] [address] Galdino Andujar DO 293 [place] [address] 02/14/2025 1:30 PM EDT Home Visit [facility] [address] [place] [address] Jarrett Mathis, RN [address] [place] [address] 06/13/2025 1:30 PM EDT Imaging Radiology [address] [place] [phone] 06/24/2025 11:30 AM EDT Office Visit Pulmonary Medicine, [facility] [address] [place] [phone] Jhonny Holley MD [address] [place] [address] 11/11/2025 1:15 PM EST Imaging Radiology [address] [place] [address] Scheduled Procedures Name Priority Associated Diagnoses Date/Ti me COLONOSCOPY FLEXIBLE PROXIMAL DIAGNOSTIC Recall Colon cancer screening Health Maintenance Due Date Last Done Comments Cologuard 2000 Fecal Occult Blood Test 2000 Sigmoidoscopy 2000 CKD PHOS USE SMARTSET 39731 12/26/20240 10/2023, 02/11/2023, 01/07/2022, Additional history exists Adult Wellness Visit 02/13/2025 02/14/2024, 08/05/20 22 GFR 04/21/2025 10/22/2024, 08/27, 06/26/2024, Additional history exists HbA1c 04/21/2025 10/22/2024, 09/2023, 03/26/2024, Additional history exists Mammogram 06/12/2025 06/12/2024, 05/27, 04/21/2023, Additional history exists Diabetic Eye Exam 07/06/2025 07/06/2024, , 07/06/2024, Additional history exists Albumin/Creatinine Ratio 10/22/2025 025, 08/05/2023, 11/01/2022, Additional history exists CKD HGB USE SMARTSET 11704 10/22/202510/22, 10/22/2024, 10/11/2024, Additional history exists Diabetic [...] Other specified counseling ILD (interstitial lung disease) ([facility])- Primary Postinflammatory pulmonary fibrosis Fibromyalgia [...] discussion- Primary Other specified counseling Atherosclerosis of [place] coronary artery of [place] heart without angina pectoris Carotid artery stenosis, asymptomatic, right Essential hypertension with goal blood pressure less than 140/[address] Other postprocedural status Hypertensive [...] discussion- Primary Other specified counseling Atherosclerosis of [place] coronary artery of [place] heart without angina pectoris Frank filter in [...] Obstructive sleep apnea (adult) (pediatric) Financial insecurity Spinal stenosis of lumbar region without neurogenic claudication Spinal stenosis, lumbar region, without neurogenic claudication Restless legs syndrome Restless legs syndrome (RLS) Anxiety state Anxiety state, unspecified Lumbar radiculopathy Thoracic or lumbosacral neuritis or radiculitis, unspecified Primary osteoarthritis of both knees Primary localized osteoarthrosis, lower leg Screening mammogram for breast cancer documented in this encounter Advance Directives Documents on File Type Date Recorded Patient Scanner Operator Expl anation POLST 03/19/2020 4:25 PM [...] (no specific identity) Health Care Power of Blending Plant Operator Princess Allen Other - (no specific identity) Health Care Power of Blending Plant Operator Care Teams Chain Splitter Relationship Specialty Start Date End Date Galdino Andujar DO [address] [place] [address] PCP - General Internal Medicine 03/08/24 documented as of this encounter
--- OUTSIDE RECORDS SUMMARY | 2025-01-23 23:54 | External Medical Summary | Summary of Care ---
Author Name Unknown Organization [facility] Address [address] [place] [address] Phone [phone] Care Team Providers Care Neighborhood Conservation Officer Name Role Phone Lexii Andujar DO Primary Care Provider [phone] Reason for Visit * Reason Onset Date Comments FYI 12/17/2024 dme Encounter Details Date Type Department Care Team (Late st Contact Info) Description 12/17/2024 Telephone Family Practice [address] [facility] [place] [address] [place] [address] Lexii Andujar DO [address] [place] [address] FYI (dme) Allergies Active Allergy Reactions Criticality Noted Date [...] G7 Sensor Use as directed. (From [facility]) 06/01/20 Active Aspirin 81 MG Oral [...] 1 Tablet before bedtime. 56 Tablet 5 11:11 AM EDT 11/07/19 25 [...] ([facility]) Inject 8 units with breakfast and 6 [...] failure ([facility]) Take 1 Tablet by mouth in the [...] ([facility]) INJECT 38 UNITS UNDER THE SKIN IN THE EVENING 15 mL 5 5 3:25 PM EST 11/07/19 25 Active Clopidogrel Bisulfate 75 MG Oral Tablet (pLAVix) Take 1 Tablet by mouth in the morning. 28 Tablet 11 5 11:11 AM EDT 11/07/19 25 Active Comfort EZ Pen [place] 31G X 8 MM (Insulin Pen Needle) [...] 5 3:00 PM EDT 12/14/19 25 Active Cefdinir 300 MG Oral Capsule (Omnicef) take 1 capsule by mouth twice daily for 5 days 10 Capsule 5 3:00 PM EDT 12/15/19 25 Active Tamsulosin HCl 0.4 MG Oral Capsule (Flomax) take 1 capsule by mouth at bedtime 30 Capsule 5 3:00 PM EDT 12/15/19 25 Active Lactobacillus Oral Tablet take 1 tablet by mouth daily 50 Tablet 5 12:20 PM EDT 12/15/19 25 Active ONETOUCH DELICA LANCETS 33G MISC Check blood sugars 3-4 times daily 180 Each 5 08/01/20 18 025 Discontin ued(Medic ation List Clean Up) OneTouch Verio In Vitro Strip (Glucose Blood)Indications: Hypoglycemia,Type 2 diabetes mellitus with stage 3b chronic kidney disease, with long-term current use of insulin (HCC) Use up to 4 times a day in case of dexcom failure 100 Strip 11 5 2:23 PM EDT 02/02/20 24 025 Discontin ued(Medic ation List Clean Up) Mounjaro 7.5 MG/0.5ML Subcutaneous Solution Auto-injector (Tirzepatide)Indic ations:Type 2 diabetes mellitus with stage 3b chronic kidney disease, with long-term current use of insulin (HCC) Inject 7.5 mg under the skin once a week. 2 mL 11 5 10:42 AM EDT 06/26/20 24 025 Discontin ued(Medic ation/Dos e Changed) Ondansetron HCl 4 MG Oral Tablet (Zofran)Indication s:Dizziness and giddiness Take 1 Tablet (4 mg) by mouth every 6 hours as needed for Nausea. 90 Tablet 6 07/04/20 24 025 Discontin ued(Medic ation List Clean Up) Meclizine HCl 12.5 MG Oral Tablet (Antivert)Indicati ons:Vertigo Take 1 Tablet by mouth 3 times a day as needed for Dizziness. 30 Tablet 1 07/31/20 24 025 Discontin ued(Medic ation List Clean Up) Hospital, Clinic, or Other [...] carotid surgery at [facility]. She states she has rx for atorvastatin and plavix to berry picker machine operator at pharmacy. Type 2 [...] 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 Atherosclerosis of [place] co ronary artery without angina pectoris 12/31/2021 [...] 8:05 AM EDT): Home PT to start [place] filter in place 08/19/2014 History of [...] given by vascular, has to berry picker machine operator rx documented as of [...] Vasculitis 11/07/2019 10/22/2024 Other atherosclerosis of [place] arteries of extremities, left leg 02/26/2019 11/20/2019 [...] mRNA, LNP-s, No Pre serve, 2-Dose Series ([employer]) 01/08/2021,12/18/2020 COVID-19, LNP-s, No Preserve , Navarro-sucrose, Ages 12+ (Pfizer) 2022,10/01/2021 COVID-19, MRNA-LNP, PF, 30 M CG/0.3 mL, 12 YRS AND ABOVE, IM (PFIZER-Comirnaty) 07/31/2024,07/26/2023 Pneumococcal Conjugate Vacci ne, 20-valent ([id number]) 03/12/2022 Pneumococcal Polysaccharide PPV23 (Pneumovax) 08/22/2009,06/15/2006 RSV [...] Telephone Encounter - Little Flores RN - 12/27/2024 2:23 PM EDT New order placed for heavy duty rollator per patient's request due to her size. Submitted online via [employer] website. DME company- [employer] per patient's request. * Telephone Encounter - Shira Gross LPN - 12/20/2024 2:46 PM EDT Order created thru [employer] thru epic portal. Thank you * Addendum Note - Lexii Andujar DO - 12/19/2024 4:53 PM EDTAddended by: LEXII ANDUJAR on: 12/19/2024 04:53 PM Modules accepted: Orders * Telephone Encounter - Lexii Adnujar DO - 12/19/2024 4:53 PM EDT Rollator walker order signed * Addendum Note - Shira Gross LPN - 12/19/2024 2:04 PM EDTAddended by: SHIRA GROSS on: 12/19/2024 02:04 PM Modules accepted: Orders * Telephone Encounter - Shira Gross LPN - 12/19/2024 2:04 PM EDT Please sign pended order. Thank you * Telephone Encounter - Little Flores RN - 12/17/2024 11:06 AM EDT Patient states the rollator she bought for herself several years ago has broke and is requesting a new one. DME order placed. Please submit thru [employer]. She has PCP appt on 12/20 TY! documented in this encounter Plan of Treatment Upcoming Encounters Date Type Department Care Team (Late st Contact Info) Description 01/09/2025 9:00 AM EDT Office Visit Urogynecology [facility] [address] [place] [address] Al Meyers MD [address] [place] [address] 02/05/2025 1:00 PM EDT Office Visit Family [address] [place] [phone] Lexii Andujar DO [address] [place] [address] 02/14/2025 1:30 PM EDT Home Visit [facility], [facility] [address] [place] [address] Jarrett Mathis, RN [address] [place] [address] 06/13/2025 1:30 PM EDT Imaging Radiology [address] [facility] [place] [phone] 06/24/2025 11:30 AM EDT Office Visit Pulmonary Medicine, [facility] [address] [place] [phone] [facility] [address] [facility] [address] 11/11/2025 1:15 PM EST Imaging Radiology [address] [facility] [place] [phone] Scheduled Procedures Name Priority Associated Diagnoses Date/Ti me COLONOSCOPY FLEXIBLE PROXIMAL DIAGNOSTIC Recall Colon cancer screening Health Maintenance Due Date Last Done Comments Cologuard 2000 Fecal Occult Blood Test 2000 Sigmoidoscopy 2000 CKD PHOS USE SMARTSET 37646 12/26/202410/2023, 02/11/2023, 01/07/2022, Additional history exists Adult Wellness Visit 02/13/2025 02/14/2024, 08/05/20 22 GFR 04/21/2025 10/22/2024, 08/27, 06/26/2024, Additional history exists HbA1c 04/21/2025 10/22/2024, 09/2023, 03/26/2024, Additional history exists Mammogram 06/12/2025 06/12/2024, 05/27, 04/21/2023, Additional history exists Diabetic Eye Exam 07/06/2025 07/06/2024, , 07/06/2024, Additional history exists Albumin/Creatinine Ratio 10/22/2025 025, 08/05/2023, 11/01/2022, Additional history exists CKD HGB USE SMARTSET 88669 10/22/202510/22, 10/22/2024, 10/11/2024, Additional history exists Diabetic [...] insulin ([facility]) Restless legs syndrome Restless legs syndrome (RLS) ELLIE (generalized anxiety disorder) Generalized anxiety disorder Mild episode of recurrent major depressive disorder ([facility]) Advanced care planning/counseling discussion Other specified counseling ILD (interstitial lung disease) ([facility])- Primary Postinflammatory pulmonary fibrosis Fibromyalgia Mylagia and myositis, unspecified Moderate episode of recurrent major depressive disorder ([facility]) Primary osteoarthritis of both knees Primary localized osteoarthrosis, lower leg Chronic hypoxemic respiratory failure ([facility]) Chronic respiratory failure 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 3b chronic kidney disease ([facility]) Advanced care planning/counseling discussion- Primary Other specified counseling Atherosclerosis of [place] coronary artery of [place] heart without angina pectoris Carotid artery stenosis, asymptomatic, right Essential hypertension with goal blood pressure less than 140/[address] Other postprocedural status 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 3b chronic kidney disease ([facility]) Recurrent deep vein thrombosis (DVT) of both lower extremities (HCC) Chronic hypoxemic respiratory failure (HCC) Chronic respiratory failure ELISSA (obstructive sleep apnea) Obstructive sleep apnea (adult) (pediatric) Type 2 diabetes mellitus with hemoglobin A1c goal of less than 8.0% ([facility]) Fibromyalgia Mylagia and myositis, unspecified Restless legs syndrome Restless legs syndrome (RLS) Chronic kidney disease, stage 3b ([facility]) History of pulmonary embolus (PE) Personal history of pulmonary embolism Moderate episode of recurrent major depressive disorder ([facility]) Advanced care planning/counseling discussion- Primary Other specified counseling Atherosclerosis of [place] coronary artery of [place] heart without angina pectoris [place] filter in place Other postprocedural status 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 3b chronic kidney disease ([facility]) Recurrent deep vein thrombosis (DVT) of both lower extremities (HCC) Chronic hypoxemic respiratory failure (HCC) Chronic respiratory failure Gastroesophageal reflux disease with esophagitis without hemorrhage Sacroiliitis, not elsewhere classified ([facility]) Sacroiliitis, not elsewhere classified Postsurgical hypothyroidism Type [...] with long-term current use of insulin (HCC) Primary osteoarthritis of both knees- Primary Primary localized osteoarthrosis, lower leg Abnormality of gait Screening mammogram for breast cancer documented in this encounter Advance Directives Documents on File Type Date Recorded Patient Sales Donor Recruitment 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 Expl anation POLST 03/19/2020 4:25 PM [...] (no specific identity) Health Care Power of Reservation Agent Princess Other - (no specific identity) Health Care Power of Reservation Agent Care Teams Neighborhood Conservation Officer Relationship Specialty Start Date End Date Lexii Andujar DO [address] [facility] [place] [address] PCP - General Internal Medicine 03/08/24 documented as of this encounter
--- OUTSIDE RECORDS SUMMARY | 2025-01-23 23:54 | External Medical Summary | Summary of Care ---
Author Name Unknown Organization [facility] Address [address] [place] [address] Phone [phone] Care Team Providers Care Lock Maintenance Supervisor Name Role Phone Pratima Galdino Neal DO Primary Care Provider [phone] Encounter Details Date Type Department Care Team (Late st Contact Info) Description 12/27/2024 1:40 PM EDT Home Visit Care Coordination and Integration [address] [place], [place] [id number] Angi Hagen Community Health Interior Horticulturist [address] [place] [address] Allergies Active Allergy Reactions Criticality Noted Date [...] Use as directed. (From [facility]) 06/01/20 Active Aspirin 81 MG [...] HEALTH CARE),Chronic diastolic congestive heart failure (HCC) Take 1 [...] HEALTH CARE),Chronic diastolic congestive heart failure (HCC) Take 1 [...] of 7.0%-8.0% ([facility]) INJECT 38 UNITS UNDER THE SKIN IN THE EVENING 15 mL 11/14/2024 3:25 PM EST 11/07/19 25 Active Clopidogrel Bisulfate 75 MG Oral Tablet (pLAVix) Take 1 Tablet by mouth in the morning. 28 Tablet 11 12/04/2024 11:11 AM EDT 11/07/19 25 Active Comfort EZ Pen [place] 31G X 8 MM (Insulin Pen Needle) [...] of insulin ([facility]) Inject 10 mg under the skin once [...] rx for atorvastatin and plavix to sweet pickle maker at pharmacy. 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 Atherosclerosis of [place] co ronary artery without angina pectoris 12/31/2021 [...] evidently given by vascular, has to sweet pickle maker rx documented as of this [...] mRNA, LNP-s, No Pre serve, 2-Dose Series ([email or web address]) 01/08/2021,12/18/2020 COVID-19, LNP-s, No Preserve , Navarro-sucrose, Ages 12+ (Pfizer) 2022,10/01/2021 COVID-19, MRNA-LNP, PF, 30 M CG/0.3 mL, 12 YRS AND ABOVE, IM ([facility]) 07/31/2024,07/26/2023 Pneumococcal Conjugate Vacci ne, 20-valent ([id number]) 03/12/2022 Pneumococcal Polysaccharide PPV23 (Pneumovax) 08/22/2009,06/15/2006 RSV [...] 12/27/2024 3:21 PM EDT Order placed with [facility] for [facility] for larger rollator I guess right now we just have to wait until we hear back from the other shelter case manager for questions on medicaid Still GHP secure in [place] * Angi Hagen, Community Health Interior Horticulturist - 12/27/2024 1:52 PM EDT Telemedicine visit: [...] Patient has been trying to reach her shelter case manager through the assistance office for days and [...] for. This CHW sent teams message to CORI Fitch to look into this issue. CORI Fitch is working on getting the order re- submitted for a larger heavy duty rollator. This CHW placed PC to [facility] Assistance office and had to leave a message regarding patientsMedical Assistance and to calls this CHW back or patient back and left contact info. This CHW completed a bottles out med review/blister packs VS CHW survey Angi Hagen- Community Health Worker 1 Support Services/[facility] Money Plan [email or web address] documented in this encounter Plan of Treatment Upcoming Encounters Date Type Department Care Team (Late st Contact Info) Description 01/09/2025 9:00 AM EDT Office Visit Urogynecology [facility] [address] [place] [address] Al Meyers MD [address] [place] [address] 02/05/2025 1:00 PM EDT Office Visit Family Practice 65 [facility] [place] [address] [place] [address] Galdino Andujar, [address] [place] [address] 02/14/2025 1:30 PM EDT Home Visit [facility] [address] [place] [address] Jarrett Mathis RN [address] [place] [address] 06/13/2025 1:30 PM EDT Imaging Radiology [address] [place] [address] 06/24/2025 11:30 AM EDT Office Visit Pulmonary Medicine, [facility] [address] [place] [phone] Jhonny Holley MD [address] [place] [address] 11/11/2025 1:15 PM EST Imaging Radiology [address] [place] [phone] Scheduled Procedures Name Priority Associated Diagnoses Date/Ti me COLONOSCOPY FLEXIBLE PROXIMAL DIAGNOSTIC Recall Colon cancer screening Health Maintenance Due Date Last Done Comments Cologuard 2000 Fecal Occult Blood Test 2000 Sigmoidoscopy 2000 CKD PHOS USE SMARTSET 69093 12/26/2024 040 10/2023, 02/11/2023, 01/07/2022, Additional history exists Adult Wellness Visit 02/13/2025 02/14/2024, 08/05/20 22 GFR 04/21/2025 10/22/2024, 08/27, 06/26/2024, Additional history exists HbA1c 04/21/2025 10/22/2024, 1009/2023, 03/26/2024, Additional history exists Mammogram 06/12/2025 06/12/2024, 05/27, 04/21/2023, Additional history exists Diabetic Eye Exam 07/06/2025 07/06/2024, , 07/06/2024, Additional history exists Albumin/Creatinine Ratio 10/22/2025 025, 08/05/2023, 11/01/2022, Additional history exists CKD HGB USE SMARTSET 75433 10/22/202510/22, 10/22/2024, 10/11/2024, Additional history exists Diabetic [...] on File Type Date Recorded Patient Line Producer Expl anation POLST 03/19/2020 4:25 PM [...] (no specific identity) Health Care Power of Debug Technician Princess Other - (no specific identity) Health Care Power of Debug Technician Care Teams Lock Maintenance Supervisor Relationship Specialty Start Date End Date Galdino Andujar DO [address] [place] [address] PCP - General Internal Medicine 03/08/24 documented as of this encounter
--- OUTSIDE RECORDS SUMMARY | 2025-01-23 23:54 | External Medical Summary | Summary of Care ---
Author Name Unknown Organization [facility] Address [address] [place] [address] Phone [phone] Care Team Providers Care Deflector Operator Name Role Phone Pratima Galdino Neal DO Primary Care Provider [phone] Reason for Visit * Reason Onset Date Comments Test Results 12/05/2024 6MW Encounter Details Date Type Department Care Team (Late st Contact Info) Description 12/05/2024 Telephone Pulmonary Medicine, [facility] [address] [facility] [place] [address] Jhonny Holley MD [address] [address] Test Results (6MW) Allergies Active Allergy Reactions Criticality Noted Date [...] Dexcom G7 Sensor Use as directed. (From [facility]) 06/01/20 Active Aspirin 81 MG Oral [...] EDT 11/07/19 25 Active Comfort EZ Pen [place] 31G X 8 MM (Insulin Pen Needle) use five times daily 500 Each 2 11/19/2024 11:42 AM EST 11/16/19 25 Active Hospital, Clinic, or Other Facility Administered Medication Ordered Dose Route Frequency Start Date End Date Status Albuterol Sulfate (Proventil) (2.5 MG/3ML) 0.083% inhalation solution 2.5 mgIndications:ILD (interstitial lung disease) ([facility]),Chronic respiratory failure with hypoxia ([facility]) 2.5 mg NEBULIZER PRN 10/11/2024 10/11/2025 [...] has rx for atorvastatin and plavix to waste picker at pharmacy. Type 2 diabetes mellitus [...] thrombocytopenia (HIT) 2 Atherosclerosis of [place] ronary artery without angina pectoris 12/31/2021 [...] rx evidently given by vascular, has to waste picker rx documented as of this encounter [...] mRNA, LNP-s, No Pre serve, 2-Dose Series (Course[employer]aver) 01/08/2021,12/18/2020 COVID-19, LNP-s, No Preserve , Navarro-sucrose, Ages 12+ (Pfizer) 2022,10/01/2021 COVID-19, MRNA-LNP, PF, 30 M CG/0.3 mL, 12 YRS AND ABOVE, IM ([facility]) 07/31/2024,07/26/2023 Pneumococcal Conjugate Vacci ne, 20-valent ([id number]) 03/12/2022 Pneumococcal Polysaccharide PPV23 (Pneumovax) 08/22/2009,06/15/2006 RSV [...] Lozada LPN - 12/05/2024 7:25 AM EDT MyG sent. * Telephone Encounter - Sade Lozada LPN - 12/05/2024 7:03 AM EDT ----- Message from Jhonny Holley MD sent at 12/04/2024 6:26 PM EDT ----- 6 minute walk test 11/08/2024 was POSITIVE FOR HYPOXIA DURING REST AND AMBULATION on room air. Patient required 2 LPM oxygen to maintain adequate oxygen saturation at rest. Patient required 4 LPM oxygen to maintain adequate oxygen saturation during ambulation. New prescription for oxygen use during rest and exercise has been ordered. Please ensure processingof home oxygen order. documented in this encounter Plan of Treatment Upcoming Encounters Date Type Department Care Team (Late st Contact Info) Description 01/09/2025 9:00 AM EDT [facility] [address] [place] [address] Al Meyers MD [address] [place] [address] 02/05/2025 1:00 PM EDT Office Visit Family Practice [address], [place] 293 [place] [address] Galdino Andujar, DO 293 [place] [address] 02/14/2025 1:30 PM EDT Home Visit [facility], [facility] 132 [facility] [place] [address] Jarrett Mathis, LEXI 132 [facility] [place] [address] 06/13/2025 1:30 PM EDT Imaging Radiology [address] 132 [facility] [place] [phone] 06/24/2025 11:30 AM EDT Office Visit Pulmonary Medicine, [facility] 132 [facility] [place] [phone] Jhonny Holley MD [address] [place] [address] 11/11/2025 1:15 PM EST Imaging Radiology [address] 132 [facility] [place] [id number] Scheduled Procedures Name Priority Associated Diagnoses Date/Ti me COLONOSCOPY FLEXIBLE PROXIMAL DIAGNOSTIC Recall Colon cancer screening Health Maintenance Due Date Last Done Comments Cologuard 2000 Fecal Occult Blood Test 2000 Sigmoidoscopy 2000 CKD PHOS USE SMARTSET 30573 12/26/20240 10/2023, 02/11/2023, 01/07/2022, Additional history exists Adult Wellness Visit 02/13/2025 02/14/2024, 08/05/20 22 GFR 04/21/2025 10/22/2024, 12/2 11/2023, 06/26/2024, Additional history exists HbA1c 04/21/2025 10/22/2024, 09/2023, 03/26/2024, Additional history exists Mammogram 06/12/2025 06/12/2024, 05/27, 04/21/2023, Additional history exists Diabetic Eye Exam 07/06/2025 07/06/2024, , 07/06/2024, Additional history exists Albumin/Creatinine Ratio 10/22/2025 025, 08/05/2023, 11/01/2022, Additional history exists CKD HGB USE SMARTSET 37860 10/22/202510/22, 10/22/2024, 10/11/2024, Additional history exists Diabetic [...] Documents on File Type Date Recorded Patient Button Station Worker Expl anation POLST 03/19/2020 4:25 PM [...] (no specific identity) Health Care Power of Estimation Manager Princess Other - (no specific identity) Health Care Power of Estimation Manager Care Teams Deflector Operator Relationship Specialty Start Date End Date Galdino Andujar DO [address] [place] [address] PCP - General Internal Medicine 03/08/24 documented as of this encounter
--- OUTSIDE RECORDS SUMMARY | 2025-01-23 23:55 | External Medical Summary | Summary of Care ---
Author Name Unknown Organization [facility] Address [address] [place] [address] Phone [phone] Care Team Providers Care Crew Leader Gluing Name Role Phone Pratima Galdino Neal DO Primary Care Provider [phone] Encounter Details Date Type Department Care Team (Late st Contact Info) Description 12/24/2024 12:15 PM EDT Scheduled Telephone Care Coordination and Integration [address] [place], [place] [phone] Angi Hagen Community Health Fixing Machine Operator [address] [place], [place] [phone] Allergies Active Allergy Reactions Criticality Noted Date [...] as of this encounter (statuses as of 12/24/2024) Medications oxygen GASIndications:ELISSA (obstructive sleep apnea) Use [...] Dexcom G7 Sensor Use as directed. (From [facility]) 06/01/20 Active Aspirin 81 MG Oral [...] EDT 11/07/19 25 Active Comfort EZ Pen [place] 31G X 8 MM (Insulin Pen Needle) [...] 12/14/2024 3:00 PM EDT 12/15/19 25 Active Tamsulosin [...] skin once a week. 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 Atherosclerosis of [place] ronary artery without angina pectoris 12/31/2021 [...] 8:05 AM EDT): Home PT to start [place] filter in place 08/19/2014 History of pulmonary [...] as of this encounter (statuses as of 12/24/2024) Resolved Problems Problem Noted Date Diagnosed Date [...] as of this encounter (statuses as of 12/24/2024) Immunizations Name Administration Dates Next Due COVID-19 mRNA, LNP-s, No Pre serve, 2-Dose Series (wywy) 01/08/2021,12/18/2020 COVID-19, LNP-s, No Preserve , Navarro-sucrose, Ages 12+ (Pfizer) 2022,10/01/2021 COVID-19, MRNA-LNP, PF, 30 M CG/0.3 mL, 12 YRS AND ABOVE, IM ([facility]) 07/31/2024,07/26/2023 Pneumococcal Conjugate Vacci ne, 20-valent ([id number]) 03/12/2022 Pneumococcal Polysaccharide PPV23 (Pneumovax) 08/22/2009,06/15/2006 RSV [...] 12/17/2024 Does the household have a re lar [...] Progress Notes * Angi Hagen, Community Health Fixing Machine Operator - 12/24/2024 12:42 PM EDT Telemedicine visit: No Community Health Worker (CHW) documentation: This CHW placed #1 f/u PC to patient per Cm's request Patient sounded as if she was doing well and patient reported that she has finished her antibiotic so she hopes that the UTI is gone. Patient never gets symptoms so its hard for her to tell if its gone. This CHW reviewed patients red flags with her and CHW survey. Patient reported that she did schedule a f/u appt with [facility] for sometime in December. They are going to be doing the stent exchange more frequently. Patient questioned her appointment for tomorrow and who was coming. This CHW clarified upcoming appointments. This CHW gave patient Cm's contact info and encouraged patient to reach out to Cm with any concerns or questions. Angi Hagen- Community Health Worker 1 Support Services/[facility] [email or web address] documented in this encounter Plan of Treatment Upcoming Encounters Date Type Department Care Team (Late st Contact Info) Description 12/25/2024 1:00 PM EDT Home Visit ising at [facility] [address] [place] [address] [address] Sathish Lundberg PA-C [address] [place] [address] 12/27/2024 1:40 PM EDT Home Visit Care Coordination and Integration [address] [place] [address] Angi Hagen Community Health Fixing Machine Operator [address] [place] [address] 01/09/2025 9:00 AM EDT Office Visit Urogynecology [facility] [address] [address] Al Meyers MD [address] [place] [address] 02/05/2025 1:00 PM EDT Office Visit Family Practice [address], [place] 293 [place] [address] Galdino Andujar, 293 [facility], [place] [address] 02/14/2025 1:30 PM EDT Home Visit [facility] [address] [place] [address] Jarrett Mathis, RN [address] [place] [address] 06/13/2025 1:30 PM EDT Imaging Radiology [address] [place] [phone] 06/24/2025 11:30 AM EDT Office Visit Pulmonary Medicine, [facility] 132 [facility] [place] [address] Jhonny Holley MD [address] [place] [address] 11/11/2025 1:15 PM EST Imaging Radiology [address] 132 [facility] [place] [phone] Scheduled Procedures Name Priority Associated Diagnoses Date/Ti me COLONOSCOPY FLEXIBLE PROXIMAL DIAGNOSTIC Recall Colon cancer screening Health Maintenance Due Date Last Done Comments Cologuard 2000 Fecal Occult Blood Test 2000 Sigmoidoscopy 2000 CKD PHOS USE SMARTSET 79575 12/26/2024 04/0 10/2023, 02/11/2023, 01/07/2022, Additional history [...] Additional history exists CKD HGB USE SMARTSET 21412 10/22/202510/22, 10/22/2024, 10/11/2024, Additional history exists Diabetic [...] Documents on File Type Date Recorded Patient Second Miller Expl [place] POLST 03/19/2020 4:25 PM POLST * Full [...] (no specific identity) Health Care Power of Chargemaster Analyst Princess Allen Other - (no specific identity) Health Care Power of Chargemaster Analyst Care Teams Crew Leader Gluing Relationship Specialty Start Date End Date Galdino Andujar DO [address] [place] [address] PCP - General Internal Medicine 03/08/24 documented as of this encounter
--- OUTSIDE RECORDS SUMMARY | 2025-01-23 23:55 | External Medical Summary | Summary of Care ---
Author Name Unknown Organization [facility] Address [address] [place] [address] Phone [phone] Care Team Providers Care Glass Pulverizer Equipment Operator Name Role Phone Galdino Andujar DO Primary Care Provider [phone] Reason for Visit * Reason Comments Dosage Adjustment In Person (Anticoag Cl inic) Diabetes Follow-Up Encounter Details Date Type Department Care Team (Late st Contact Info) Description 12/20/2024 1:00 PM EDT Office Visit Family Practice 65 [facility] [address] [place] [address] [place], Pharmacist [address] [address] Type 2 diabetes mellitus with stage 3b [...] Dexcom G7 Sensor Use as directed. (From [facility]) 06/01/20 Active Aspirin 81 MG Oral Tablet [...] 7.0%-8.0% ([facility]) Inject 8 units with breakfast [...] failure ([facility]) Take 1 Tablet by mouth [...] 7.0%-8.0% ([facility]) INJECT 38 UNITS UNDER THE SKIN IN THE EVENING 15 mL 5 3:25 PM EST 11/07/19 25 Active Clopidogrel Bisulfate 75 MG Oral Tablet (pLAVix) Take 1 Tablet by mouth in the morning. 28 Tablet 11 5 11:11 AM EDT 11/07/19 25 Active Comfort EZ Pen [place] 31G X 8 MM (Insulin Pen Needle) [...] insulin ([facility]) Inject 10 mg under the skin once a week. 2 mL 12/25/19 25 026 Active Mounjaro 7.5 MG/0.5ML Subcutaneous Solution Auto-injector (Tirzepatide)Indic ations:Type 2 diabetes mellitus with stage 3b chronic kidney disease, with long-term current use of insulin ([facility]) Inject 7.5 mg under the skin once a week. 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 Atherosclerosis of [place] co ronary artery without angina pectoris 12/31/2021 [...] Therapy: No beta-faviola secondary to --unknown o IWLI Inhibitor/ARB Therapy: No WILI/ARB/ARNI secondary to: --unknown [...] (PFIZER-Comirnaty) 07/31/2024,07/26/2023 Pneumococcal Conjugate Vacci ne, 20-valent ([id number]) 03/12/2022 Pneumococcal Polysaccharide PPV23 (Pneumovax) 08/22/2009,06/15/2006 RSV [...] this encounter Progress Notes * Henny Duong, Lanette Valle, [facility] - 12/20/2024 12:01 PM EDT Images from the original note [...] Hyperglycemia symptoms present: none Recent Labs Units 10/22/24 1454 06/26/24 1430 03/26/24 1115 HEMOGLOBIN A1C - [facility] % 7.1* 7.8* 8.6* Recent Labs Units 10/22/24 1454 09/17/24 1420 06/26/24 1430 ESTIMATED GLOMERULAR FILTRATION RATE - [facility] mL/min 31* 31* 29* CREATININE - [facility] mg/dL 1.8* 1.8* 1.8* HYPERTENSION: Patient on ACEi/ARB: no, defer to next visit. Will need to be cautious with renal function. BP Readings from Last 3 Encounters: 12/20/24 124/64 12/19/24 108/80 12/17/24 136/70 Blood pressure at goal: yes HYPERLIPIDEMIA: Recent Labs Units 10/11/24 0705 11/07/23 1643 LDL CHOLESTEROL (CALCULATED) - [facility] mg/dL -- 60 LDL CHOLESTEROL (DIRECT MEASURE) - [facility] mg/dL 66 -- Does patient have clinical ASCVD? Yes, is patient LDL less than 55 mg/dL? No: defer to next appt HEALTH MAINTENANCE REVIEW: Health Maintenance Due Topic Date Due CKD PHOS USE SMARTSET 12554 12/26/2024 Adult Wellness Visit 02/13/2025 ASSESSMENT & PLAN: No diagnosis found. BG Readings - Blood sugars uncontrolled. This is likely due to missing mounjaro in hospital. Medications - Reviewed current regimen, patient is adherent to regimen. Will increase Tresiba for now and then Mounjaro with next fill. Diet, Exercise, Lifestyle - No significant lifestyle changes since last visit. Discussed with patient. Patient is agreeable to SMBG with Dexcom G7 CGM. Patient aware to contact clinic if any hypoglycemia before next visit. MEDICATION CHANGES: yes, see below; preferred pharmacy: [facility] Diabetic Medications: Novolog - 8 units with breakfast, 6 units lunch and 10 units with supper + SS 1:30 >150 before meals Increase Tresiba 45 units at bedtime Increase Mounjaro to 10mg weekly with next 1 month HEALTH MAINTENANCE INTERVENTIONS: Labs: Up to Date Immunizations: Up to Date Foot Exam: Up to Date Eye Exam: Up to Date Annual Wellness Visit: N/A FOLLOW UP: Return to clinic in 8 weeks 02/05/2025 I spent a total of 20-29 minutes (exact time 21 mins) on the date of service in preparation, delivery, and documentation of the care provided to Stephanie Camp excluding any time spent in the performance of separately billed services. Lanette Huerta [facility] Clinical Pharmacist - Counseling Services Director Medication Therapy Management Clinic 12/20/2024, 12:02 PM documented in this encounter Miscellaneous Notes * Addendum Note - Lanette Ellis RPh - 12/24/2024 8:52 AM EDT Addended by: LANETTE ELLIS on: 12/24/2024 08:52 AM Modules accepted: Orders documented in this encounter Plan of Treatment Upcoming Encounters Date Type Department Care Team (Late st Contact Info) Description 12/25/2024 1:00 PM EDT Home Visit [facility] [address] [place] [address] Sathish Lundberg PA-C [address] [place] [address] 12/27/2024 1:40 PM EDT Home Visit Care Coordination and Integration [address] [place] [address] Angi Hagen, Community Health Design Printing Machine Set Up Operator [address] [place] [address] 01/09/2025 9:00 AM EDT Office Visit Urogynecology [facility] [address] [place] [address] Al Meyers MD [address] [place] [address] 02/05/2025 1:00 PM EDT Office Visit Family Practice 65 [facility], [place] [address] [place] [address] Galdino Andujar, [address] [place] [address] 02/14/2025 1:30 PM EDT Home Visit [facility], [facility] [address] [address] [address] Jarrett Mathis, LEXI [address] [address] 06/13/2025 1:30 PM EDT Imaging Radiology [facility] [address] [place] [phone] 06/24/2025 11:30 AM EDT Office Visit Pulmonary Medicine, [facility] [address] [place] [address] Jhonny Holley MD [address] [place] [address] [address] 11/11/2025 1:15 PM EST Imaging Radiology [facility] [address] [place] [address] Scheduled Procedures Name Priority Associated Diagnoses Date/Ti me COLONOSCOPY FLEXIBLE PROXIMAL DIAGNOSTIC Recall Colon cancer screening Health Maintenance Due Date Last Done Comments Cologuard 2000 Fecal Occult Blood Test 2000 Sigmoidoscopy 2000 CKD PHOS USE SMARTSET 93882 12/26/2024 04/0 10/2023, 02/11/2023, 01/07/2022, Additional history [...] Additional history exists CKD HGB USE SMARTSET 86432 10/22/202510/22, 10/22/2024, 10/11/2024, Additional history exists Diabetic [...] discussion- Primary Other specified counseling Atherosclerosis of [place] coronary artery of [place] heart without angina pectoris Carotid artery stenosis, [...] discussion- Primary Other specified counseling Atherosclerosis of [place] coronary artery of [place] heart without angina pectoris Frank filter in [...] Documents on File Type Date Recorded Patient Pst Manager Expl anation POLST 03/19/2020 4:25 PM [...] (no specific identity) Health Care Power of Psychiatric Specialist Princess Allen Other - (no specific identity) Health Care Power of Psychiatric Specialist Care Teams Glass Pulverizer Equipment Operator Relationship Specialty Start Date End Date Galdino Andujar DO [address] [place] [address] PCP - General Internal Medicine 03/08/24 documented as of this encounter
--- OUTSIDE RECORDS SUMMARY | 2025-01-23 23:55 | External Medical Summary | Summary of Care ---
Author Name Unknown Organization [facility] Address [address] [place] [address] Phone [phone] Care Team Providers Care Coloring Room Worker Name Role Phone Galdino Andujar DO Primary Care Provider [phone] Reason for Visit * Reason Comments Dosage Adjustment In Person (Anticoag Cl inic) Follow Up Encounter Details Date Type Department Care Team (Late st Contact Info) Description 12/20/2024 11:00 AM EDT Pharmacy Family Practice [facility] [address] [place] [address] [place], Pharmacist [address] [place] [id number] Medication management* Allergies Active Allergy Reactions Criticality Noted Date [...] Dexcom G7 Sensor Use as directed. (From [facility]) 06/01/20 Active Aspirin 81 MG [...] and CKD stage 3 ([facility]),Chronic diastolic congestive heart failure (HCC) [...] and CKD stage 3 ([facility]),Chronic diastolic congestive heart failure ([facility]) Take 1 Tablet by mouth in [...] of 7.0%-8.0% ([facility]) INJECT 38 UNITS UNDER THE SKIN IN THE EVENING 15 mL 5 5 3:25 PM EST 11/07/19 25 Active Clopidogrel Bisulfate 75 MG Oral Tablet (pLAVix) Take 1 Tablet by mouth in the morning. 28 Tablet 11 5 11:11 AM EDT 11/07/19 25 Active Comfort EZ Pen [place] 31G X 8 MM (Insulin Pen Needle) [...] in case of dexcom failure 100 Strip 5 2:23 PM EDT 02/02/20 24 025 [...] 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 Atherosclerosis of [place] co ronary artery without angina pectoris 12/31/2021 [...] 8:05 AM EDT): Home PT to start Halifax filter in place 08/19/2014 History of pulmonary [...] mRNA, LNP-s, No Pre serve, 2-Dose Series ([employer]) 01/08/2021,12/18/2020 COVID-19, LNP-s, No Preserve , Navarro-sucrose, Ages 12+ (Pfizer) 2022,10/01/2021 COVID-19, MRNA-LNP, PF, 30 M CG/0.3 mL, 12 YRS AND ABOVE, IM (PFIZER-Comirnaty) 07/31/2024,07/26/2023 Pneumococcal Conjugate Vacci ne, 20-valent ([id number]) 03/12/2022 Pneumococcal Polysaccharide PPV23 (Pneumovax) 08/22/2009,06/15/2006 RSV [...] Progress Notes * Henny Duong, Frances Valle, [facility] - 12/20/2024 10:55 AM EDT Medication Therapy Disease Management [facility] - Medication Reconciliation Encounter Type: discussed with patient Med Bottles Available for Review: no Med Rec Reason: Transition of Care Date of Admission: 12/09/24 - [facility] Date of Discharge: 12/14/24 Reason for Admission: UTI Medication changes during admission/on discharge: Added: probiotic + cranberry, tamsulosin 0.4mg at bedtime Modified: none Discontinued: none Does the patient currently have all of their medications in their home? Yes, but probiotic is expensive Enrolled in Medicare Prescription Payment Plan for current year? No - had medicaid, but now things she lost it. [x] Preferred pharmacy reviewed/updated [x] Problem list reviewed [x] Allergies reviewed and updated if needed [x] Drug interaction check completed [x] HEDIS list addressed Immunizations indicated: Up to date Medication Organization/Adherence: Has home care nurse or caregiver: No Patient uses a pill box/blister packs? Yes, refill(s) completed by pharmacist - pharmacy When you are at home, how often do you miss doses of medications? Never How difficult is it for you to pay for your medications? Not difficult at all, but now getting bills for CGMs How often do you experience adverse effects from your medications? Less than once a week Labs/Vitals/Risk Scores: ASCVD 10-Year Risk Score Current as of 26 minutes ago N/A 0 to < 5 Points: Low Risk 5 to < 7.5 Points: Borderline Risk 7.5 to < 20 Points: Intermediate Risk 20 to 100 Points: High Risk Last Change: N/A The ASCVD risk score (Freddyadrianna JOHNS Jr, et al., 2013) returns the percentage likelihood of a first time ASCVD event. This score is not applicable to this patient. Components are not calculated. BP Readings from Last 3 Encounters: 12/19/24 108/80 12/17/24 136/70 11/27/24 131/75 Recent Labs Units 10/22/24 1454 06/26/24 1430 03/26/24 1115 HEMOGLOBIN A1C - [facility] % 7.1* 7.8* 8.6* Recent Labs Units 10/22/24 1454 09/17/24 1420 06/26/24 1430 ESTIMATED GLOMERULAR FILTRATION RATE - [facility] mL/min 31* 31* 29* Serum creatinine: 1.8 mg/dL (H) 10/22/24 1454 Estimated creatinine clearance: 38.3 mL/min (A) Assessment: Medication discrepancies identified: updated per ROSA Dose/frequency of medications appropriate for current renal function? yes Other medication problems identified: - Concern for fall risk/somnolence due to multiple REGULATORY COORDINATOR medications. Patient reports no current issues with this. - Patient reports hospital was questioning DAPT + eliquis. Will look into this. - Hyperglycemia - Patient concern for having lost medicaid. Checked in with pharmacy and meds appear to still be $0 Plan: Immunizations facilitated: None Patient education provided: regarding med/CGM costs - patient to call manager of case/[facility] and then our office to update Referral pended for follow up management of: N/A Medication recommendations: - Adjusted insulin and Mounjaro - see MTDM note. I spent a total of 20-29 minutes (exact time 23 mins) on the date of service in preparation, delivery, and documentation of the care provided to Stephanie Camp excluding any time spent in the performance of separately billed services or time spent by another provider/QHP. Frances Huerta, [facility] Clinical Pharmacist - Boat Carpenter Mechanic Medication Therapy Management Clinic 12/20/2024, 10:55 AM documented in this encounter Plan of Treatment Upcoming Encounters Date Type Department Care Team (Late st Contact Info) Description 12/25/2024 1:00 PM EDT Home Visit [facility] [address] [place] [address] Sathish Lundberg PA-C [address] [facility] [place] [address] 12/27/2024 1:40 PM EDT Home Visit [facility] [address] [place] [address] Angi Hagen, [facility]Or [employer] Detective [address] [place] [address] 01/09/2025 9:00 AM EDT Office Visit Urogynecology [facility] [place] [address] [place] [address] Al Meyers MD [address] [facility] [place] [address] 02/05/2025 1:00 PM EDT Office Visit Family Practice [address] [facility] [place] [address] [place] [address] Galdino Andujar DO [address] [place] [address] 02/14/2025 1:30 PM EDT Home Visit [facility], [facility] [address] [facility] [place] [address] Jarrett Mathis, RN [address] [place] [address] 06/13/2025 1:30 PM EDT Imaging Radiology [address] [place] [address] 06/24/2025 11:30 AM EDT Office Visit Pulmonary Medicine, [facility] [address] [place] [address] Jhonny Holley MD [address] [place] [address] 11/11/2025 1:15 PM EST Imaging Radiology [address] [place] [id number] Scheduled Procedures Name Priority Associated Diagnoses Date/Ti me COLONOSCOPY FLEXIBLE PROXIMAL DIAGNOSTIC Recall Colon cancer screening Health Maintenance Due Date Last Done Comments Cologuard 2000 Fecal Occult Blood Test 2000 Sigmoidoscopy 2000 CKD PHOS USE SMARTSET 77291 12/26/202410/2023, 02/11/2023, 01/07/2022, Additional history exists Adult Wellness Visit 02/13/2025 02/14/2024, 08/05/20 22 GFR 04/21/2025 10/22/2024, 08/27, 06/26/2024, Additional history exists HbA1c 04/21/2025 10/22/2024, 09/2023, 03/26/2024, Additional history exists Mammogram 06/12/2025 06/12/2024, 05/27, 04/21/2023, Additional history exists Diabetic Eye Exam 07/06/2025 07/06/2024, , 07/06/2024, Additional history exists Albumin/Creatinine Ratio 10/22/2025 025, 08/05/2023, 11/01/2022, Additional history exists CKD HGB USE SMARTSET 61808 10/22/202510/22, 10/22/2024, 10/11/2024, Additional history exists Diabetic [...] major depressive disorder ([facility]) Advanced care planning/counseling discussion Other specified counseling ILD (interstitial lung disease) ([facility])- Primary Postinflammatory pulmonary fibrosis Fibromyalgia Mylagia and myositis, unspecified Moderate episode of recurrent major depressive disorder ([facility]) Primary osteoarthritis of both knees Primary localized osteoarthrosis, lower leg Chronic hypoxemic respiratory failure ([facility]) Chronic respiratory failure 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 3b chronic kidney disease ([facility]) Advanced care planning/counseling discussion- Primary Other specified counseling Atherosclerosis of [place] coronary artery of [place] heart without angina pectoris Carotid artery stenosis, asymptomatic, right Essential hypertension with goal blood pressure less than 140/[address] Other postprocedural status 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 3b chronic kidney disease ([facility]) Recurrent deep vein thrombosis (DVT) of both lower extremities ([facility]) Chronic hypoxemic respiratory failure ([facility]) Chronic respiratory failure ELISSA (obstructive sleep apnea) Obstructive sleep apnea (adult) (pediatric) Type 2 diabetes mellitus with hemoglobin A1c goal of less than 8.0% ([facility]) Fibromyalgia Mylagia and myositis, unspecified Restless legs syndrome Restless legs syndrome (RLS) Chronic kidney disease, stage 3b ([facility]) History of pulmonary embolus (PE) Personal history of pulmonary embolism Moderate episode of recurrent major depressive disorder ([facility]) Advanced care planning/counseling discussion- Primary Other specified counseling Atherosclerosis of [place] coronary artery of [place] heart without angina pectoris Frank filter in place Other postprocedural status 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 3b chronic kidney disease ([facility]) Recurrent deep vein thrombosis (DVT) of both lower extremities (HCC) Chronic hypoxemic respiratory failure (HCC) Chronic respiratory failure Gastroesophageal reflux disease with esophagitis without hemorrhage Sacroiliitis, not elsewhere classified ([facility]) Sacroiliitis, not elsewhere classified 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 3b chronic kidney disease, with long-term current use of insulin ([facility]) History of pulmonary embolus (PE) Personal history of pulmonary embolism Moderate episode of recurrent major depressive disorder ([facility]) Spinal stenosis of lumbar region [...] with long-term current use of insulin (HCC) Medication management- Primary Encounter for long-term (current) use of other medications Screening mammogram for breast cancer documented in this encounter Advance Directives Documents on File Type Date Recorded Patient Delinquent Account Clerk Expl anation POLST 03/19/2020 4:25 PM [...] (no specific identity) Health Care Power of Dairy Farmer Princess Thrashery Other - (no specific identity) Health Care Power of Dairy Farmer Care Teams Coloring Room Worker Relationship Specialty Start Date End Date Galdino Andujar DO [address] [place] [address] PCP - General Internal Medicine 03/08/24 documented as of this encounter
--- OUTSIDE RECORDS SUMMARY | 2025-01-23 23:55 | External Medical Summary | Summary of Care ---
Author Name Unknown Organization [facility] Address [address] [place] [address] Phone [phone] Care Team Providers Care Plate Straightener Name Role Phone Galdino Andujar DO Primary Care Provider [phone] Reason for Visit * Reason Onset Date Comments Hospital Follow-Up Hospital Follow-Up 12/20/2024 Encounter Details Date Type Department Care Team (Late st Contact Info) Description 12/20/2024 11:20 AM EDT Office Visit Family Practice [facility], [place] [address] [place] [address] Galdino Andujar DO [address] [place] [address] Acute cystitis without hematuria*; Hydronephrosis of right kidney; Stenosis of abdominal aorta; Type 2 diabetes mellitus with stage 3b chronic kidney disease, with long-term current use of insulin ([facility]); 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 3b chronic kidney disease ([facility]); ILD (interstitial lung disease) ([facility]); Atherosclerosis of assiniboine and sioux coronary artery of assiniboine and sioux heart without angina pectoris; Chronic hypoxemic respiratory failure ([facility]); Dyslipidemia; [place] filter in place; History of pulmonary embolus (PE); Hyperparathyroidism, secondary renal ([facility]); Iron deficiency; Lumbar radiculopathy; Moderate episode of recurrent major depressive disorder ([facility]); Morbid (severe) obesity due to excess calories ([facility]); ELISSA (obstructive sleep apnea); Postsurgical hypothyroidism; Restless legs syndrome; Risk and functional assessment; Carotid artery stenosis, asymptomatic, right; Fibromyalgia; Hospital discharge follow-up Allergies Active Allergy Reactions [...] as of this encounter (statuses as of 12/20/2024) Medications oxygen GASIndications:ELISSA (obstructive sleep apnea) Use [...] Sensor Use as directed. (From [facility]) 06/01/20 Active Mounjaro 7.5 MG/0.5ML Subcutaneous Solution Auto-injector (Tirzepatide)Indic ations:Type 2 diabetes mellitus with stage 3b chronic kidney disease, with long-term current use of insulin (HCC) Inject 7.5 mg under the skin once a week. 2 mL 12/20/2024 10:42 AM EDT 06/26/20 24 Active Aspirin 81 MG Oral Tablet [...] and 2 Sprays before bedtime. 16 g 12/04/2024 11:11 AM EDT 11/07/19 25 Active [...] goal of 7.0%-8.0% ([facility]) Inject 8 units with breakfast [...] 1 and CKD stage 3 ([facility]),Chronic diastolic congestive heart failure (HCC) [...] A1c goal of 7.0%-8.0% ([facility]) INJECT 38 UNITS UNDER THE SKIN IN THE EVENING 15 mL 5 11/14/2024 3:25 PM EST 11/07/19 25 Active Clopidogrel Bisulfate 75 MG Oral Tablet (pLAVix) Take 1 Tablet by mouth in the morning. 28 Tablet 11 12/04/2024 11:11 AM EDT 11/07/19 25 Active Comfort EZ Pen [place] 31G X 8 MM (Insulin Pen Needle) [...] 50 Tablet 12/18/2024 12:20 PM EDT 12/15/19 Active Hospital, Clinic, or Other Facility Administered [...] as of this encounter (statuses as of 12/20/2024) Active Problems Problem Noted Date Diagnosed Date [...] has rx for atorvastatin and plavix to pepper picker at pharmacy. 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 Atherosclerosis of assiniboine and sioux co ronary artery without angina pectoris 12/31/2021 [...] 8:05 AM EDT): Home PT to start [place] filter in place 08/19/2014 History of [...] rx evidently given by vascular, has to pepper picker rx documented as of this encounter (statuses as of 12/20/2024) Resolved Problems Problem Noted Date Diagnosed Date [...] as of this encounter (statuses as of 12/20/2024) Immunizations Name Administration Dates Next Due COVID-19 mRNA, LNP-s, No Pre serve, 2-Dose Series ([employer]) 01/08/2021,12/18/2020 COVID-19, LNP-s, No Preserve , Navarro-sucrose, Ages 12+ (Pfizer) 2022,10/01/2021 COVID-19, MRNA-LNP, PF, 30 M CG/0.3 mL, 12 YRS AND ABOVE, IM ([employer]-Comirnat) 07/31/2024,07/26/2023 Pneumococcal Conjugate Vacci ne, 20-valent ([id number]) 03/12/2022 Pneumococcal Polysaccharide PPV23 (Pneumovax) 08/22/2009,06/15/2006 RSV [...] Sign Reading Time Taken Comments Blood Pressure 124/64 12/20/2024 11:14 AM EDT Pulse 91 12/20/2024 11:14 AM EDT Temperature 35.7 °C (96.3 °F) 12/20/2024 1 1:14 AM EDT Respiratory Rate 16 12/20/2024 11:1 4 AM EDT Oxygen Saturation 92% 12/20/2024 11: 14 AM EDT on 3L O2. Inhaled Oxygen Concentration - - Weight 125.5 kg (276 lb 9.6 oz) 025 11:14 AM EDT Height 162.6 cm (5' 4") 12/20/2024 11:1 4 AM EDT Body Mass Index 47.48 12/20/2024 11:14 AM EDT documented in this encounter Patient Instructions * Patient Instructions* Flaca Springer LPN - 12/20/2024 11:13 AM EDT Urinary Incontinence Plan of Care Documentation: [...] Wear support stockings (TEDs)if you have edema Flaca Springer LPN 12/20/2024 Kegel Exercises Kegel exercises don’t require special clothing or equipment. They’re easy to learn and simple to do. And if you do them right, no one can tell you’re doing them, so they can be done [...] of the Kegel exercises described below. When you’re doing them, try not to move your leg, buttock, or stomach muscles. While you’re urinating, try to stop the flow of urine. Start and stop it as often as you can. Contract as if you were stopping your urine stream, but do it when you’re not urinating. Tighten your rectum as if trying not to pass gas. Contract your anus, but don’t move your buttocks. Helpful Hints Do your Kegels as often as you can. The more you do them, the faster you’ll feel the results. Pick an activity you [...] a slow count to five. You probably won’t be able to hold them for thatlong at first, but keep practicing. It will get easier as your pelvic floor gets stronger. Eventually, special weights that you place in your vagina may be recommended to help make your Kegels even more effective. [employer] Patient Education Copyright© 2008 - 2010 [employer] except where otherwise [...] Progress Notes * Galdino Andujar, DO - 12/20/2024 2:55 PM EDT SUBJECTIVE: Stephanie Camp is a 69 year old female. Chief Complaint Patient presents with Hospital Follow-Up Hospital Follow-Up Recent Admission: Patient was recently admitted to [facility]. The date of discharge was 12/14/2024.Discharge report received and reviewed. HPI: Stephanie Camp is a 69 year old female with a history of DM type II, CKD stage III, Diastolic CHF, right hydronephrosis, right ureteral stent, right Transcarotid Artery Revascularization in 08/2023, Chronic Hypoxic Respiratory Failure, HTN, Recurrent DVT, IVC Filter, Hyperlipidemia, GERD, Lumbar Disc Disease, Restless Leg Syndrome, Sleep Apnea with CPAP intolerance, HIT, and Ambulatory Dysfunction that is seen for hospital follow up. The patient was admitted on 12/09/2024 due to bilateral flank pain and lower abdominal pain. The patient was found to have UTI. No acute pathology was present on CT of the abdomen and pelvis. The patient has estimated 40 % stenosis of abdominal aorta on CT which is an incidental finding. Urine and blood cultures were negative. Urology changed right ureteral stent on 12/13/2024. The patient has completed Cefdinir. Chronic shortness of breath is unchanged andshe continues to wear oxygen 3 L NC at all times. Weight is stable and appetite is fair. No chest pa in. She no longer has flank pain. The patient has ambulatory dysfunction and uses powerchair for ambulation. Patient Active Problem List Diagnosis Dyslipidemia Postsurgical [...] failure and stage 3b chronic kidney disease ([facility]) Hyperparathyroidism, secondary renal (HCC) Spinal stenosis of lumbar region without neurogenic claudication Heparin induced thrombocytopenia (HIT) ([facility]) Atherosclerosis of assiniboine and sioux coronary artery without angina pectoris Carotid artery stenosis, asymptomatic, right Encounter for long-term current use of medication Type 2 diabetes mellitus with hemoglobin A1c goal of less than 8.0% ([facility]) Recurrent deep vein thrombosis (DVT) of both lower extremities ([facility]) Chronic hypoxemic respiratory failure ([facility]) Chronic kidney disease, stage 3b ([facility]) ILD (interstitial lung disease) ([facility]) Moderate episode of recurrent major depressive disorder ([facility]) Primary osteoarthritis of both knees Type 2 diabetes mellitus with stage 3b chronic kidney disease, with long-term current use of insulin ([facility]) Anxiety state Sacroiliitis, not elsewhere classified ([facility]) DM peripheral angiopathy ([facility]) Morbid (severe) obesity due to excess calories ([facility]) Iron deficiency Hydronephrosis of right kidney History of infection with vancomycin resistant Enterococcus (VRE) Body mass index (BMI) of 45.0 to 49.9 in adult ([facility]) Morbid (severe) obesity with alveolar hypoventilation ([facility]) Drug-induced constipation Current Outpatient Medications Medication Sig [...] Use as directed. (From [facility]) Mounjaro 7.5 MG/0.5ML Subcutaneous Solution Auto-injector (Tirzepatide) Inject 7.5 mg under the skin once a week. 2 mL 11 Aspirin 81 MG Oral Tablet Delayed Release [...] morning. 28 Tablet 11 Comfort EZ Pen [place] 31G X 8 MM (Insulin Pen Needle) [...] tablet by mouth daily 50 Tablet 0 Current Facility-Administered Medications Medication Dose Route Frequency Provider Last Rate Last Admin Albuterol Sulfate (Proventil) (2.5 MG/3ML) 0.083% inhalation solution 2.5 mg 2.5 mg Nebulizer PRN Albuterol Sulfate (Proventil) (5 MG/ML) 0.5% *conc* inhalation solution 2.5 mg 2.5 mg Nebulizer PRN2.5 mg at 11/08/24 1347 Current and discharge medications have been reconciled. [...] Other (Please comment) Passed out OBJECTIVE: BP 124/64 (BP Site: Left Arm, BP Position: Sitting, BP Cuff Size: Large) | Pulse 91 | Temp 96.3 °F(35.7 °C) (Tympanic) | Resp 16 | Ht 5' 4" (1.626 m) | Wt 276 lb 9.6 oz (125.5 kg) | LMP 03/11/2003| SpO2 92% Comment: on 3L O2. | BMI 47.48 kg/m² | BSA 2.38 m² REVIEW OF SYSTEMS: Review of Systems Constitutional: [...] concentration and sleep disturbance. PHYSICAL EXAM: BP 124/64 (BP Site: Left Arm, BP Position: Sitting, BP Cuff Size: Large) | Pulse 91 | Temp 96.3 °F(35.7 °C) (Tympanic) | Resp 16 | Ht 5' 4" (1.626 m) | Wt 276 lb 9.6 oz (125.5 kg) | LMP 03/11/2003| SpO2 92% Comment: on 3L O2. | BMI 47.48 kg/m² | BSA 2.38 m² Physical Exam Vitals and nursing note reviewed. [...] and Affect: Mood normal. Behavior: Behavior normal. CT CHEST WO CONTRAST Result Date: 11/13/2024 IMPRESSION 1. Subpleural reticulations with mild interval [...] 4. Additional findings and details as above. (In compliance with Act 112, the MENTAL MEASUREMENTS TEACHER (Plush Dresser) was contacted to invoke system generated communication of the patient's results.) ASSESSMENT: Acute cystitis without hematuria (Primary) - COMPREHENSIVE METABOLIC PANEL; Future; Expected date: 12/20/2024 - CBC WITH WBC DIFFERENTIAL; Future; Expected date: 12/20/2024 - PHOSPHORUS; Future; Expected date: 12/20/2024 Treatment completed Right ureter stent changed Follow up scheduled with U[facility] at [facility] 02/[facility]25 Hydronephrosis of right kidney - COMPREHENSIVE METABOLIC PANEL; Future; Expected date: 12/20/2024 - CBC WITH WBC DIFFERENTIAL; Future; Expected date: 12/20/2024 - PHOSPHORUS; Future; Expected date: 12/20/2024 Continue to follow with Urology Stenosis of abdominal aorta Will refer to Vascular Surgery for evaluation Type 2 diabetes mellitus with stage 3b chronic kidney disease, with long-term current use of insulin (HCC) Continue Mounjaro, Tresiba, Novolog 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 3b chronic kidney disease (HCC) Continue Furosemide ILD (interstitial lung disease) (HCC) Continue Oxygen Atherosclerosis of assiniboine and sioux coronary artery of assiniboine and sioux heart without angina pectoris Continue ASA Chronic hypoxemic respiratory failure (HCC) Continue Oxygen Dyslipidemia Continue Rosuvastatin Frank filter in place History of pulmonary embolus (PE) Continue Apixaban Hyperparathyroidism, secondary renal (HCC) Iron deficiency Lumbar radiculopathy Continue Tramadol, Gabapentin, and Duloxetine Moderate episode of recurrent major depressive disorder (HCC) Continue Duloxetine Morbid (severe) obesity due to excess calories (HCC) ELISSA (obstructive sleep apnea) Postsurgical hypothyroidism Continue levothyroxine Restless legs syndrome Continue Ropinirole Risk and functional assessment Carotid artery stenosis, asymptomatic, right Treated with TCAR 09/06/2023 Make sure vascular follow up is scheduled Fibromyalgia Hospital discharge follow-up - DISCH MED RECON CUR MED LIS Follow-up: Return in about 1 month (around 01/20/2025). | Check-out note: Records release Dr. Tang- [facility] [place] Galdino Andujar DO * Flaca Springer LPN - 12/20/2024 11:13 AM EDT Urinary Incontinence Plan of Care Documentation: [...] Wear support stockings (TEDs)if you have edema Flaca Springer LPN 12/20/2024 documented in this encounter Nursing Notes * Flaca Springer LPN - 12/20/2024 11:12 AM EDT Patient here for Hospital d/c follow up visit. Hospitalized at [facility] for UTI. States she is feeling better. documented in this encounter Plan of Treatment Upcoming Encounters Date Type Department Care Team (Late st Contact Info) Description 12/25/2024 1:00 PM EDT [facility] Visit [facility], [address] [place] [address] Sathish Lundberg PA-C [address] [place] [address] 12/27/2024 1:40 PM EDT Home Visit [facility] [address] [place] [address] Angi Hagen, [facility] [address] [place] [address] 01/09/2025 9:00 AM EDT Office Visit Urogynecology [facility] [address] [facility] [place] [address] Al Meyers MD [address] [place] [address] 02/05/2025 1:00 PM EDT Office Visit Family Practice [facility] [place] [address] [place] [address] Galdino Andujar, [address] [place] [address] 02/14/2025 1:30 PM EDT Home Visit [facility] [address] [place] [address] Jarrett Mathis, RN [address] [place] [address] 06/13/2025 1:30 PM EDT Imaging Radiology [facility] [facility] [address] [place] [phone] 06/24/2025 11:30 AM EDT Office Visit Pulmonary Medicine, [facility] [address] [place] [phone] Jhonny Holley MD [address] [facility] [address] 11/11/2025 1:15 PM EST Imaging Radiology [facility] [facility], [place] [address] [place] [address] Scheduled Orders Name Type Priority Associated Diagnoses Orde r Schedule COMPREHENSIVE METABOLIC PANEL Lab Routine Acute cystitis without hematuria Hydronephrosis of right kidney Expected: 12/20/2024 (Approximate), Expires: 12/20/2025 CBC WITH WBC DIFFERENTIAL Lab Routine Acute cystitis without hematuria Hydronephrosis of right kidney Expected: 12/20/2024 (Approximate), Expires: 12/20/2025 PHOSPHORUS Lab Routine Acute cystitis without hematuria Hydronephrosis of right kidney Expected: 12/20/2024 (Approximate), Expires: 12/20/2025 Scheduled Procedures Name Priority Associated Diagnoses Date/Ti me COLONOSCOPY FLEXIBLE PROXIMAL DIAGNOSTIC Recall Colon cancer screening Health Maintenance Due Date Last Done Comments Cologuard 2000 Fecal Occult Blood Test 2000 Sigmoidoscopy 2000 CKD PHOS USE SMARTSET 66629 12/26/2024 040 10/2023, 02/11/2023, 01/07/2022, Additional history exists Adult Wellness Visit 02/13/2025 02/14/2024, 08/05/20 22 GFR 04/21/2025 10/22/2024, 12/11/2023, 06/26/2024, Additional history exists HbA1c 04/21/2025 10/22/2024, 1009/2023, 03/26/2024, Additional history exists Mammogram 06/12/2025 06/12/2024, 05/27, 04/21/2023, Additional history exists Diabetic Eye Exam 07/06/2025 07/06/2024, , 07/06/2024, Additional history exists Albumin/Creatinine Ratio 10/22/2025 025, 08/05/2023, 11/01/2022, Additional history exists CKD HGB USE SMARTSET 64077 10/22/202510/22, 10/22/2024, 10/11/2024, Additional history exists Diabetic [...] 1 and CKD stage 3 ([facility])- Primary Fibromyalgia Mylagia and myositis, unspecified Primary osteoarthritis of both knees Primary localized osteoarthrosis, lower leg Anxiety state Anxiety state, unspecified Recurrent deep vein thrombosis (DVT) of both lower extremities ([facility]) Chronic hypoxemic respiratory failure (HCC) Chronic respiratory failure 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 3b chronic kidney disease, with long-term current use of insulin (HCC) Restless legs syndrome Restless legs syndrome (RLS) ELLIE (generalized anxiety disorder) Generalized anxiety disorder Mild episode of recurrent major depressive disorder ([facility]) Advanced care planning/counseling discussion Other specified counseling ILD (interstitial lung disease) ([facility])- Primary Postinflammatory pulmonary fibrosis Fibromyalgia Mylagia and myositis, unspecified Moderate episode of recurrent major depressive disorder (HCC) Primary osteoarthritis of both knees Primary localized osteoarthrosis, lower leg Chronic hypoxemic respiratory failure (HCC) Chronic respiratory failure 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 3b chronic kidney disease ([facility]) Advanced care planning/counseling discussion- Primary Other specified counseling Atherosclerosis of assiniboine and sioux coronary artery of assiniboine and sioux heart without angina pectoris Carotid artery stenosis, asymptomatic, right Essential hypertension with goal blood pressure less than 140/90 [place] filter in place Other postprocedural status Hypertensive [...] goal of less than 8.0% ([facility]) Fibromyalgia Mylagia and myositis, unspecified Restless legs syndrome Restless legs syndrome (RLS) Chronic kidney disease, stage 3b ([facility]) History of pulmonary embolus (PE) Personal history of pulmonary embolism Moderate episode of recurrent major depressive disorder (HCC) Advanced care planning/counseling discussion- Primary Other specified counseling Atherosclerosis of assiniboine and sioux coronary artery of assiniboine and sioux heart without angina pectoris Frank filter in [...] current use of insulin ([facility]) History of pulmonary embolus (PE) [...] Other and unspecified hyperlipidemia DM peripheral angiopathy ([facility]) Type II or unspecified type [...] Acute cystitis without hematuria- Primary Acute cystitis Hydronephrosis of right kidney Hydronephrosis Stenosis of abdominal aorta 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 stage 3b chronic kidney disease, with long-term current use of insulin (HCC) 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 3b chronic kidney disease (HCC) ILD (interstitial lung disease) ([facility]) Postinflammatory pulmonary fibrosis Atherosclerosis of assiniboine and sioux coronary artery of assiniboine and sioux heart without angina pectoris Chronic hypoxemic respiratory failure (HCC) Chronic respiratory failure Dyslipidemia Other and unspecified hyperlipidemia [place] filter in place Other postprocedural status History of pulmonary embolus (PE) Personal history of pulmonary embolism Hyperparathyroidism, secondary renal (HCC) Secondary hyperparathyroidism (of renal origin) Iron deficiency Iron deficiency anemia, unspecified Lumbar radiculopathy Thoracic or lumbosacral neuritis or radiculitis, unspecified Moderate episode of recurrent major depressive disorder (HCC) Morbid (severe) obesity due to excess calories (HCC) ELISSA (obstructive sleep apnea) Obstructive sleep apnea (adult) (pediatric) Postsurgical hypothyroidism Restless legs syndrome Restless legs syndrome (RLS) Risk and functional assessment Screening for unspecified condition Carotid artery stenosis, asymptomatic, right Fibromyalgia Mylagia and myositis, unspecified Hospital discharge follow-up Other follow-up examination Screening mammogram for breast cancer documented in this encounter Advance Directives Documents on File Type Date Recorded Patient Clerical Order Filler Expl anation POLST 03/19/2020 4:25 PM [...] (no specific identity) Health Care Power of Triple Air Valve Tester Princesseugene Thrashery Other - (no specific identity) Health Care Power of Triple Air Valve Tester Care Teams Plate Straightener Relationship Specialty Start Date End Date Galdino Andujar DO [address] [place] [address] PCP - General Internal Medicine 03/08/24 documented as of this encounter
--- OUTSIDE RECORDS SUMMARY | 2025-01-23 23:55 | External Medical Summary | Summary of Care ---
Author Name Unknown Organization [facility] Address [address] [place] [address] Phone [phone] Care Team Providers Care Cold Working Inspector Name Role Phone Gladino Andujar DO Primary Care Provider [phone] Reason for Visit * Reason Comments Dosage Adjustment In Person (Anticoag Cl inic) Diabetes Follow-Up Encounter Details Date Type Department Care Team (Late st Contact Info) Description 12/20/2024 1:00 PM EDT Office Visit Family Practice 65 [facility] [address] [place] [address] [place], Pharmacist [address] [address] Type 2 diabetes mellitus with stage 3b [...] Dexcom G7 Sensor Use as directed. (From [facility]) 06/01/20 Active Aspirin 81 MG Oral [...] [facility]),Chronic diastolic congestive heart failure ([facility]) Take 1 Tablet by mouth in [...] EDT 11/07/19 25 Active Comfort EZ Pen [place] 31G X 8 MM (Insulin Pen Needle) [...] of insulin ([facility]) Inject 10 mg under the skin once [...] by vascular, reports upcoming carotid surgery at [facility]. She states she has rx [...] (PFIZER-Comirnaty) 07/31/2024,07/26/2023 Pneumococcal Conjugate Vacci ne, 20-valent ([id number]) 03/12/2022 Pneumococcal Polysaccharide PPV23 (Pneumovax) 08/22/2009,06/15/2006 RSV [...] Progress Notes * Henny Duong, Lanette Valle, [facility] - 12/20/2024 12:01 PM EDT [...] Topic Date Due CKD PHOS USE SMARTSET 12014 12/26/2024 Adult Wellness Visit 02/13/2025 ASSESSMENT & [...] MEDICATION CHANGES: yes, see below; preferred pharmacy: [facility] Diabetic Medications: Novolog - 8 [...] documentation of the care provided to Stephanie Cmap excluding any time spent in the performance of separately billed services. Lanette Huerta [facility] Clinical Pharmacist - Young Adult Librarian Medication Therapy [facility] 12/20/2024, 12:02 PM documented in this encounter Miscellaneous Notes * Addendum Note - Lanette Ellis RPh - 12/24/2024 8:52 AM EDT Addended by: LANETTE ELLIS on: 12/24/2024 08:52 AM Modules accepted: Orders documented in this encounter Plan of Treatment Upcoming Encounters Date Type Department Care Team (Late st Contact Info) Description 12/25/2024 1:00 PM EDT Home Visit [facility] [place], [facility] [address] [place] [address] Sathish Lundberg PA-C [address] [place] [address] 12/27/2024 1:40 PM EDT Home Visit [facility] [address] [place] [address] Angi Hagen, Community Health Travel Professional [address] [place] [address] 01/09/2025 9:00 AM EDT Office Visit Urogynecology [facility] [address] [place] [address] Al Meyers MD [address] [place] [address] 02/05/2025 1:00 PM EDT Office Visit Family Practice 65 [facility], [place] [address] [place] [address] Galdino Andujar, [address] [place] [address] 02/14/2025 1:30 PM EDT Home Visit [facility] [place], [facility] [address] [place] [address] Jarrett Mathis, LEXI [address] [place] [address] 06/13/2025 1:30 PM EDT Imaging Radiology [facility] [address] [facility] [address] [place] [address] 06/24/2025 11:30 AM EDT Office Visit Pulmonary Medicine, [facility] [address] [place] [address] Jhonny Holley MD [address] [place] [address] 11/11/2025 1:15 PM EST Imaging Radiology [facility] [address] [facility] [address] [place] [address] Scheduled Procedures Name Priority Associated Diagnoses Date/Ti me COLONOSCOPY FLEXIBLE PROXIMAL DIAGNOSTIC Recall Colon cancer screening Health Maintenance Due Date Last Done Comments Cologuard 2000 Fecal Occult Blood Test 2000 Sigmoidoscopy 2000 CKD PHOS USE SMARTSET 60001 12/26/2024 04/0 10/2023, 02/11/2023, 01/07/2022, Additional history [...] Additional history exists CKD HGB USE SMARTSET 86234 10/22/202510/22, 10/22/2024, 10/11/2024, Additional history exists Diabetic [...] discussion- Primary Other specified counseling Atherosclerosis of [place] coronary artery of [place] heart without angina pectoris Carotid artery stenosis, [...] discussion- Primary Other specified counseling Atherosclerosis of [place] coronary artery of [place] heart without angina pectoris Frank filter in [...] Documents on File Type Date Recorded Patient Jigger Operator Expl anation POLST 03/19/2020 4:25 PM [...] (no specific identity) Health Care Power of Telecommunications Line Installer Princess Allen Other - (no specific identity) Health Care Power of Telecommunications Line Installer Care Teams Cold Working Inspector Relationship Specialty Start Date End Date Galdino Andujar DO [address] [place] [address] PCP - General Internal Medicine 03/08/24 documented as of this encounter
--- OUTSIDE RECORDS SUMMARY | 2025-01-23 23:56 | External Medical Summary | Summary of Care ---
Author Name Unknown Organization [facility] Address [address] [place] [address] Phone [phone] Care Team Providers Care Mechanical Project Engineer Name Role Phone Lexii Andujar DO Primary Care Provider [phone] Reason for Visit * Reason Onset Date Comments FYI 12/17/2024 dme Encounter Details Date Type Department Care Team (Late st Contact Info) Description 12/17/2024 Telephone Family Practice 65 [facility] [place] [address] [place] [address] Lexii Andujar DO [address] [place] [address] FYI (dme) Allergies Active Allergy [...] as of this encounter (statuses as of 12/19/2024) Medications ONETOUCH DELICA LANCETS 33G MISC Check blood sugars 3-4 times daily 180 Each 5 11/06/20 18 Active Additional Information Patient not taking.Reported on 12/17/2024 oxygen GASIndications:ELISSA (obstructive sleep apnea) Use 4 [...] Dexcom G7 Sensor Use as directed. (From [facility]) 06/01/20 Active OneTouch Verio In Vitro Strip (Glucose Blood)Indications: Hypoglycemia,Type 2 diabetes mellitus with stage 3b chronic kidney disease, with long-term current use of insulin (HCC) Use up to 4 times a day in case of dexcom failure 100 Strip 11 12/06/2024 2:23 PM EDT 02/02/20 Active Additional Information Patient not taking.Reported on 12/17/2024 Mounjaro 7.5 MG/0.5ML Subcutaneous Solution Auto-injector (Tirzepatide)Indic ations:Type 2 diabetes mellitus with stage 3b chronic kidney disease, with long-term current use of insulin (HCC) Inject 7.5 mg under the skin once a week. 2 mL 11 12/18/2024 12:20 PM EDT 06/26/20 Active Ondansetron HCl 4 MG Oral Tablet (Zofran)Indication s:Dizziness and giddiness Take 1 Tablet (4 mg) by mouth every 6 hours as needed for Nausea. 90 Tablet 6 07/04/20 24 Active Meclizine HCl 12.5 MG Oral Tablet (Antivert)Indicati ons:Vertigo Take 1 Tablet by mouth 3 times a day as needed for Dizziness. 30 Tablet 1 07/31/20 Active Additional Information Patient not taking.Reported on 12/17/2024 Aspirin 81 MG Oral Tablet Delayed ReleaseIndications [...] 1 and CKD stage 3 ([facility]),Chronic diastolic congestive heart failure (HCC) Take 1 Tablet by mouth in the morning and 1 Tablet before bedtime. 56 Tablet 11/07/19 25 Active NovoLOG FlexPen 100 UNIT/ML Subcutaneous Solution Pen-injector (insulin aspart)Indications :Type 2 diabetes mellitus with hemoglobin A1c goal of 7.0%-8.0% ([facility]) Inject 8 units with breakfast and 6 [...] 1 and CKD stage 3 ([facility]),Chronic diastolic congestive heart failure (HCC) Take 1 [...] goal of 7.0%-8.0% ([facility]) INJECT 38 UNITS UNDER THE SKIN IN THE EVENING 15 mL 5 11/14/2024 3:25 PM EST 11/07/19 25 Active Clopidogrel Bisulfate 75 MG Oral Tablet (pLAVix) Take 1 Tablet by mouth in the morning. 28 Tablet 11 12/04/2024 11:11 AM EDT 11/07/19 25 Active Comfort EZ Pen [place] 31G X 8 MM (Insulin Pen Needle) [...] 12/14/2024 3:00 PM EDT 12/14/19 25 Active Cefdinir [...] 12/18/2024 12:20 PM EDT 12/15/19 25 Active Hospital, Clinic, or Other Facility [...] as of this encounter (statuses as of 12/19/2024) Active Problems Problem Noted Date Diagnosed Date [...] vascular, reports upcoming carotid surgery at [facility]. 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 Atherosclerosis of [place] co ronary artery without angina pectoris 12/31/2021 [...] Regimen: o Beta Faviola Therapy: No beta-faviloa o WILI Inhibitor/ARB Therapy: No WILI/ARB/ARNI o [...] 8:05 AM EDT): Home PT to start Sapello filter in place 08/19/2014 History of pulmonary [...] as of this encounter (statuses as of 12/19/2024) Resolved Problems Problem Noted Date Diagnosed Date [...] as of this encounter (statuses as of 12/19/2024) Immunizations Name Administration Dates Next Due COVID-19 mRNA, LNP-s, No Pre serve, 2-Dose Series (JeNaCell) 01/08/2021,12/18/2020 COVID-19, LNP-s, No Preserve , Navarro-sucrose, Ages 12+ (Pfizer) 2022,10/01/2021 COVID-19, MRNA-LNP, PF, 30 M CG/0.3 mL, 12 YRS AND ABOVE, IM ([facility]) 07/31/2024,07/26/2023 Pneumococcal Conjugate Vacci ne, 20-valent ([id number]) 03/12/2022 Pneumococcal Polysaccharide PPV23 (Pneumovax) 08/22/2009,06/15/2006 RSV [...] Telephone Encounter - Lexii Andujar DO - 12/19/2024 4:53 PM EDT Rollator titus order signed * Addendum Note - Shira [...] one. DME order placed. Please submit thru [facility]. She has PCP appt on 12/20 TY! documented in this encounter Plan of Treatment Upcoming Encounters Date Type Department Care Team (Late st Contact Info) Description 12/20/2024 11:00 AM EDT Pharmacy Family Practice [address] [place] [address] [address] [place] [phone] College, Pharmacist [address] [place] [address] 12/20/2024 11:20 AM EDT Office Visit Family Practice [address] [place] [address] [address] [place] [address] Lexii Andujar, [address] [place] [address] 12/25/2024 1:00 PM EDT [facility] [address] [facility] [place] [address] Sathish Lundberg PA-C [facility] [place] [address] 12/27/2024 1:40 PM EDT Home Visit Care Coordination and Integration [address] [place] [address] Angi Hagen, Community Health Washroom Cleaner [address] [place] [address] 01/09/2025 9:00 AM EDT Office Visit Urogynecology [facility] [address] [place] [address] Al Meyers MD [address] [place] [address] 02/05/2025 1:00 PM EDT Office Visit Family Practice [address] [facility] [place] [address] [place] [address] Lexii Andujar, 293 [place] [address] 02/14/2025 1:30 PM EDT Home Visit [facility] [address] [place] [address] Jarrett Mathis, RN 132 [facility] [place] [address] 06/13/2025 1:30 PM EDT Imaging Radiology [address] 132 [facility] [place] [phone] 06/24/2025 11:30 AM EDT Office Visit Pulmonary Medicine, [facility] [address] [facility] [place] [phone] Jhonny Holley MD [address] [place] [address] 11/11/2025 1:15 PM EST Imaging Radiology [address] 132 [facility] [place] [id number] Scheduled Procedures Name Priority Associated Diagnoses Date/Ti me COLONOSCOPY FLEXIBLE PROXIMAL DIAGNOSTIC Recall Colon cancer screening Health Maintenance Due Date Last Done Comments Cologuard 2000 Fecal Occult Blood Test 2000 Sigmoidoscopy 2000 CKD PHOS USE SMARTSET 36167 12/26/2024 04/0 10/2023, 02/11/2023, 01/07/2022, Additional history [...] Additional history exists CKD HGB USE SMARTSET 83928 10/22/202510/22, 10/22/2024, 10/11/2024, Additional history exists Diabetic [...] 1 and CKD stage 3 ([facility])- Primary Fibromyalgia Mylagia and myositis, unspecified Primary osteoarthritis of both knees Primary localized osteoarthrosis, lower leg Anxiety state Anxiety state, unspecified Recurrent deep vein thrombosis (DVT) of both lower extremities ([facility]) Chronic hypoxemic respiratory failure ([facility]) Chronic respiratory failure 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 3b chronic kidney disease, with long-term current use of insulin ([facility]) Restless legs syndrome Restless legs syndrome (RLS) ELLIE (generalized anxiety disorder) Generalized anxiety disorder Mild episode of recurrent major depressive disorder ([facility]) Advanced care planning/counseling discussion Other specified counseling ILD (interstitial lung disease) ([facility])- Primary Postinflammatory pulmonary fibrosis Fibromyalgia Mylagia and myositis, unspecified Moderate episode of recurrent major depressive disorder ([facility]) Primary osteoarthritis of both knees Primary localized osteoarthrosis, lower leg Chronic hypoxemic respiratory failure (HCC) Chronic respiratory failure 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 3b chronic kidney disease ([facility]) Advanced care planning/counseling discussion- Primary Other specified counseling Atherosclerosis of [place] coronary artery of [place] heart without angina pectoris Carotid artery stenosis, [...] of less than 8.0% ([facility]) Fibromyalgia Mylagia and myositis, unspecified Restless legs syndrome Restless legs syndrome (RLS) Chronic kidney disease, stage 3b ([facility]) History of pulmonary embolus (PE) Personal history of pulmonary embolism Moderate episode of recurrent major depressive disorder ([facility]) Advanced care planning/counseling discussion- Primary Other specified counseling Atherosclerosis of [place] coronary artery of [place] heart without angina pectoris Frank filter in place Other postprocedural status 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 3b chronic kidney disease ([facility]) Recurrent deep vein thrombosis (DVT) of both [...] Documents on File Type Date Recorded Patient Underwater Welder Expl anation POLST 03/19/2020 4:25 PM [...] specific identity) Health Care Power of Director Business Systems Princess Other - (no specific identity) Health Care Power of Director Business Systems Care Teams Mechanical Project Engineer Relationship Specialty Start Date End Date Lexii Andujar DO [address] [place] [address] PCP - General Internal Medicine 03/08/24 documented as of this encounter
--- OUTSIDE RECORDS SUMMARY | 2025-01-23 23:56 | External Medical Summary | Summary of Care ---
Author Name Unknown Organization [facility] Address [address] [place] [address] Phone [phone] Care Team Providers Care Cleaner Operator Name Role Phone PratimaGaldino DO Primary Care Provider [phone] Reason for Visit * Reason Comments Follow Up Return pulm. Chronic resp. Failure with hypoxia. ILD. Lung nodule. Encounter Details Date Type Department Care Team (Late st Contact Info) Description 12/19/2024 1:30 PM EDT Office Visit Pulmonary Medicine, [facility] [address] [facility] [place] [address] Jhonny Holley MD [address] [place] [address] ILD (interstitial lung disease) (HCC)*; Chronic hypoxemic respiratory failure (HCC); SOB (shortness of breath); ELISSA (obstructive sleep apnea) Allergies Active Allergy [...] this encounter (statuses as of 12/19/2024) Medications DEMIAN BISWAS LANCBETTY 33G [facility] Check blood sugars 3-4 times daily 180 Each 5 08/01/20 Active Additional Information Patient not taking.Reported on [...] Dexcom G7 Sensor Use as directed. (From [facility]) 06/01/20 Active OneTouch Verio In Vitro Strip (Glucose Blood)Indications: Hypoglycemia,Type 2 diabetes mellitus with stage 3b chronic kidney disease, with long-term current use of insulin (HCC) Use up to 4 times a day in case of dexcom failure 100 Strip 11 12/06/2024 2:23 PM EDT 02/02/20 Active Additional Information Patient not taking.Reported on 12/17/2024 Jamarcusunjaro 7.5 MG/0.5ML Subcutaneous Solution Auto-injector (Tirzepatide)Indic ations:Type [...] needed for Nausea. 90 Tablet 6 07/04/20 Active Meclizine HCl 12.5 MG Oral Tablet [...] day as needed for Cramping. 180 Tablet 12/18/2024 12:20 PM EDT 11/07/19 25 Active [...] CKD stage 3 ([facility]),Chronic diastolic congestive heart failure (HCC) Take [...] CKD stage 3 ([facility]),Chronic diastolic congestive heart failure (HCC) Take [...] EDT 11/07/19 25 Active Comfort EZ Pen [place] 31G X 8 MM (Insulin Pen Needle) [...] 10 Capsule 12/14/2024 3:00 PM EDT 12/15/19 Active Tamsulosin HCl 0.4 MG Oral Capsule (Flomax) take 1 capsule by mouth at bedtime 30 Capsule 12/14/2024 3:00 PM EDT 12/15/19 Active Lactobacillus Oral Tablet take 1 tablet [...] stable Heparin induced thrombocytopenia (HIT) Atherosclerosis of [place] co ronary artery without angina pectoris 12/31/2021 [...] 8:05 AM EDT): Home PT to start [place] filter in place 08/19/2014 History of pulmonary [...] mRNA, LNP-s, No Pre serve, 2-Dose Series (Doodle Mobile) 01/08/2021,12/18/2020 COVID-19, LNP-s, No Preserve , Navarro-sucrose, Ages 12+ (Pfizer) 2022,10/01/2021 COVID-19, MRNA-LNP, PF, 30 M CG/0.3 mL, 12 YRS AND ABOVE, IM (PFIZER-Comirnaty) 07/31/2024,07/26/2023 Pneumococcal Conjugate Vacci ne, 20-valent ([id number]) 03/12/2022 Pneumococcal Polysaccharide PPV23 (Pneumovax) 08/22/2009,06/15/2006 RSV [...] Sign Reading Time Taken Comments Blood Pressure 108/80 12/19/2024 1:29 PM EDT Pulse 95 12/19/2024 1:29 PM EDT Temperature 35.6 °C (96.1 °F) 12/19/2024 1:29 PM ED T Respiratory Rate 16 12/19/2024 1:29 PM EDT Oxygen Saturation 98% 12/19/2024 1:29 PM EDT O2 3L Inhaled Oxygen Concentration - - Weight 123.4 kg (272 lb) 12/19/2024 1:29 PM EDT Height 162.6 cm (5' 4") 12/19/2024 1:29 PM EDT Body Mass Index 46.69 12/19/2024 1:29 PM EDT documented in this encounter Progress Notes * Mary Brewster PA-C - 12/19/2024 12:25 PM EDT Images from the original note were not included. PULMONARY/THORACIC MEDICINE 12/19/2024 Pulmonary Follow Up Pulmonary Problem List: OSAS on CPAP therapy Obesity, BMI 47, Successful weight management over last 2-3 years , was 400 lb, now down to 266 lb Chronic hypoxic respiratory status on continuous home oxygen at 3 LPM Remote history of subpleural ILD History of pulmonary embolism, Eliquis maintenance therapy status History of DVT, IVC filter status Tracheostomy status 2008 secondary to pneumonia/PE OTHERS IDDM and Mounjaro Therapy status CKD Ambulatory dysfunction IMPRESSIONS ELISSA semi compliant with CPAP Chronic respiratory failure with hypoxia on 3-4 L of oxygen on exertion and 2 L at night Subpleural ILD stable History of PE on chronic Eliquis treatment History of DVT with an IVC filter ASSESSMENT/PLAN: Counseling on physical activity Try to avoid sick contact F/u high-resolution CT in six-month F/u visit after CT done in six-month Please let us know if there is any exacerbation of lung symptoms for an earlier office visit HPI: Stephanie Camp is a 69 year old female who was last evaluated in the office on 10/11/2023 with . She was not on any bronchodilators regimen. Last visit patient described limited exercise tolerance due to DJD and obesity, used wheelchair outside, used a roll aid walker at home; Compliantwith CPAP therapy and continuous home oxygen therapy. Denied hospitalizations or Emergency Room visits Here today for Pulmonary follow up. Patient stayed at [facility] recently (12/08- 12/14/2024) due to UTI, but no recent exacerbations from her lungs stand point. Patient currently wearing 3L-4L on exertion and 2L at night. Patient wears a CPAP semi complaint at night Utilized a wheelchair and a portable oxygen machine on 3 L oxy Respiratory Symptoms: Cough: No more usual Sputum: more in the morning, cloudy Hemoptysis: No Wheeze: No Sinus Symptoms/Seasonal Allergies: Yes Medications: Flonase Reflux: Yes Medications: Prylosec daily Nocturnal symptoms: Orthopnea: yes Paroxysmal nocturnal dyspnea: No Sleeps in reclined chair seating upright. Swelling: bilateral non pitting edema worse in the right leg, moderate redness in the 1/3 lower leg, patient had a recently US to rule out DVT at [facility] Dysphagia: No Pulmonary Therapies: Inhalers: No Other: Oxygen: Yes, 4L CPAP/BIPAP: Yes Respiratory Vaccines: Flu Vaccine: 2023 Pneumovax: 2009 Prevnar: 2021 COVID 19: x6 . Exacerbations/Hospitalizations: Recent hospitalization unrelated to lung problems. No recent prednisone use. 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 Tobacco Use: Former smoker , quit 27 yrs ago Total pack years: 15 py REVIEW OF SYSTEMS: See HPI for pertinent positives. All others negative other than those noted in the HPI. OBJECTIVE/PHYSICAL EXAM: Blood pressure 108/80, pulse 95, temperature 35.6 °C (96.1 °F), temperature source Tympanic, resp. rate 16, height 1.626 m (5' 4"), weight 123.4 kg (272 lb), last menstrual period 03/11/2003, SpO2 98%, not currently . General: No acute distress. A+Ox3. Cardiac: Regular rate & rhythm. No murmurs. No JVD. Resp: Respirations even and unlabored. Decreased vesicular sounds to auscultation. No wheezes, rhonchi, mild inspiratory bilateral crackles auscultated. Pulses: Radial=2/4 bilaterally Extremities: Severe right LE none PD edema, there are some tenderness on palpation, mild redness; left LE less swelling. No clubbing or cyanosis. Neurologic: No focal deficits. DATA: Labs & Imaging Reviewed Below: LABS CBC with differential 10/22/2023 WNL PFTs 11/08/2024 CHEST XRAY 06/11/2024 RADIOLOGY REPORT IMPRESSION Bilateral interstitial and airspace opacities. Findings may represent a combination of pulmonary fibrosis with superimposed infection. Chest CT is recommended for complete evaluation. CHEST CT 11/13/2024 PLEURA: There are no pleural effusions. LARGE AIRWAYS: Mild bilateral bronchiectasis. LUNGS: Sub pleural reticulations are redemonstrated bilaterally in a distribution similar to prior examination and with mild interval progression. Mild mosaic attenuation with air trapping on the expiratory images representing a component of small airway disease is present. Small scattered bilateral lung nodules such as 3 millimeter nodule left lower lobe image 179, 4 millimeter nodule right lower lobe image 223 and 5 millimeter nodule left lower lobe image 214 of series 13 without significant change. A new 6 millimeter juxtapleural nodule is present in the right lower lobe on image 195 of series 13. CHEST WALL/SOFT TISSUES: Nonenlarged bilateral axillary lymph nodes, nonspecific and most likely reactive. IMPRESSION 1. Subpleural reticulations with mild interval [...] 4. Additional findings and details as above. Review of patient's allergies indicates: Allergen Reactions [...] Sig Dispense Refill [facility]ETS [facility] Check blood sugars 3-4 times daily (Patient not taking: Reported on 12/17/2024) 180 Each 5 oxygen GAS Use 4 L/min(Oxygen) as directed [...] Dexcom G7 Sensor Use as directed. (From [facility]) OneTouch Verio In Vitro Strip (Glucose Blood) Use up to 4 times a day in case of dexcom failure (Patient not taking: Reported on 12/17/2024) 100 Strip 11 Mounjaro 7.5 MG/0.5ML Subcutaneous Solution Auto-injector (Tirzepatide) Inject 7.5 mg under the skin once a week. 2 mL 11 Ondansetron HCl 4 MG Oral Tablet (Zofran) Take 1 Tablet (4 mg) by mouth every 6 hours as needed forNausea. 90 Tablet 6 Meclizine HCl 12.5 MG Oral Tablet (Antivert) Take 1 Tablet by mouth 3 times a day as needed for Dizziness. (Patient not taking: Reported on 12/17/2024) 30 Tablet 1 Aspirin 81 MG Oral Tablet Delayed Release [...] or juice.. (Patient not taking: Reported on 12/17/2024) 476 g 3 Potassium Chloride Ayleen ER [...] morning. 28 Tablet 11 Comfort EZ Pen [place] 31G X 8 MM (Insulin Pen Needle) [...] mg Nebulizer PRN2.5 mg at 11/08/24 1347 Past Medical History: Diagnosis Date ELSIE (acute kidney injury) ([facility]) 06/12/2018 Allergic rhinitis due to other allergen Chronic hypoxemic respiratory failure (HCC) 01/07/2022 Diverticulosis of colon 01/28/2006 Essential hypertension with goal blood pressure less than 140/90 02/22/2014 ELLIE (generalized anxiety disorder) 09/13/2009 Goiter [place] filter in place 08/19/2014 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HCC) [...] 8.0% ([facility]) 01/07/2022 Family History Problem Relation Name Age of Onset Cancer Mother liver - age 45 Cancer Father lung - age 74 (smoker) Heart Disorder Brother age 45 - possible tumor COPD Brother Diabetes Grandmother (Paternal) Cancer Grandfather (Paternal) bone ca - in 70's Bipolar Disorder Niece Breast Cancer No significant family history Social History Socioeconomic History Marital status: Single Number of children: 0 Occupational History Occupation: Retired Tobacco Use Smoking status: Former Current packs/day: 0.00 Average packs/day: 1 pack/day for 15.0 years (15.0 ttl pk-yrs) Types: Cigarettes Start date: 08/26/1982 Quit date: 08/26/1997 Years since quittin.3 Passive exposure: Past Smokeless tobacco: Never Vaping Use Vaping status: Never Used Substance and Sexual Activity Alcohol use: Not Currently Comment: rare Drug use: No Sexual activity: Not Currently Social History Narrative 2 cats in her home. No mold. 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 (Adult - for ages 18 years and over): Yes Food Insecurity: Food Insecurity Present (12/17/2024) Food Insecurity Worried About Running Out of Food in the Last Year: Sometimes true Ran Out of Food in the Last Year: Sometimes true Do you need food for this week? (Adult - for ages 18 years and over): No Transportation Needs: No Transportation Needs (12/17/2024) Transportation Needs Do you have trouble getting a ride to medical visits or work? (Adult - for ages 18 years and over):Never True Has lack of transportation kept you from medical appointments, meetings, work, or from getting things needed for daily living? Check all that apply. (Adult - for ages 18 years and over): No Social Connections: Socially Integrated (12/17/2024) Social Connections How often do you feel lonely or isolated from those around you? (Adult - for ages 18 years and over): Sometimes Housing Stability: Low Risk (12/17/2024) Housing Stability Do you currently live in a nursing home or have no steady place to sleep at night? (Adult - for ages 18 years and over): No Do you think you are at risk of becoming homeless? (Adult - for ages 18 years and over): No Are you homeless or worried that you might be in the future? (Adult - for ages 18 years and over): No IMPRESSIONS ELISSA semi compliant with CPAP Chronic respiratory failure with hypoxia on 3-4 L of oxygen on exertion and 2 L at night Subpleural ILD stable History of PE on chronic Eliquis treatment History of DVT with an IVC filter ASSESSMENT/PLAN: Counseling on physical activity Try to avoid sick contact F/u high-resolution CT in six-month F/u visit after CT done in six-month Please let us know if there is any exacerbation of lung symptoms for an earlier office visit DISPOSITION: Follow up six-month or sooner if symptoms worsen/fail to improve. All questions were answered to the patients satisfaction. Patient advised to report to ED with any and all emergencies. The patient agrees to the above plan and will call with additional questions or concerns. I spent a total of 45 minutes on the date of service in preparation, delivery, and documentation ofthe care provided to Stephanie Camp excluding any time spent in the performance of separately billed services. This chart was completed in part utilizing [employer] Voice Recognition Software. Grammatical errors, random word insertions, prounoun errors, and incomplete sentences are an occasional consequence of this system due to software limitations, ambient noise, and hardware issues. Any formal questions or concerns about the content, text, or information contained within the body of this dictation should be directly addressed to the provider for clarification. Mary Saldivar PA-C Pulmonary & Thoracic Medicine [facility] Cosigned by Jhonny Holley MD at 12/19/2024 5:01 PM EDT Associated attestation - Jhonny Holley MD - 12/19/2024 5:01 PM EDT I have reviewed the advanced practitioner's documentation on the date of service referenced in note, and I agree with, and take responsibility for the plan of care. documented in this encounter Nursing Notes * Kika Dsouza LPN - 12/19/2024 1:33 PM EDT Chief Complaint Patient presents with Follow Up Return pulm. Chronic resp. Failure with hypoxia. ILD. Lung nodule. Interm History/Respiratory Symptoms Cough: Yes clear phlegm Hemoptysis: no Sinus Symptoms: yes- drainage/congestion Hospitalizations: 12/09--UTI was given IV antibiotics . ED Trips: 12/09 Triggers: pollen,dust , smoke , perfume. Extreme cold/heat. Nocturnal: sleeps in chair CPAP/BiPAP/O2: CPAP hasn't been using it regularly. Because ends out in chair. O2 2 -2.5 L DME Supplier: [employer]. Flu Vaccine: 2023 Pneumovax: 2009 Prevnar: 2 COVID 19: x6. MMRC Dyspnea Scale = 3 (I stop for breath after walking about 100 yards or after a few minutes on ground level) documented in this encounter Plan of Treatment Upcoming Encounters Date Type Department Care Team (Late st Contact Info) Description 12/20/2024 11:00 AM EDT Pharmacy Family Practice [address] [facility] [address] [place] [address] College, Pharmacist [address] [place] [address] 12/20/2024 11:20 AM EDT Office Visit Family Practice [address] [facility] [address] [place] [address] Galdino Andujar, DO [address] [facility] [place] [address] 12/25/2024 1:00 PM EDT Home Visit [facility] [place], [facility] [address] [facility] [place] [address] Sathish Lundberg PA-C 132 [facility] [place] [address] 12/27/2024 1:40 PM EDT Home Visit [facility] [address] [place] [address] Angi Hagen, Community Health Vp Director Of Creative Strategy [address] [place] [address] 01/09/2025 9:00 AM EDT Office Visit Urogynecology [facility] [address] [place] [address] Al Meyers MD [facility] [place] [address] 02/05/2025 1:00 PM EDT Office Visit Family Practice [address] [facility] [address] [place] [address] Galdino Andujar, DO [address] [facility] [place] [address] 02/14/2025 1:30 PM EDT Home Visit [facility], [facility] [address] [place] [address] Jarrett Mathis, RN [address] [place] [address] 06/13/2025 1:30 PM EDT Imaging Radiology [address] [place] [address] 06/24/2025 11:30 AM EDT Office Visit Pulmonary Medicine, [facility] [address] [place] [address] Jhonny Holley MD [address] [place] [address] 11/11/2025 1:15 PM EST Imaging Radiology [address] [place] [id number] Scheduled Procedures Name Priority Associated Diagnoses Date/Ti me COLONOSCOPY FLEXIBLE PROXIMAL DIAGNOSTIC Recall Colon cancer screening Health Maintenance Due Date Last Done Comments Cologuard 2000 Fecal Occult Blood Test 2000 Sigmoidoscopy 2000 CKD PHOS USE SMARTSET 68483 12/26/202410/2023, 02/11/2023, 01/07/2022, Additional history exists Adult Wellness Visit 02/13/2025 02/14/2024, 08/05/20 22 GFR 04/21/2025 10/22/2024, 08/27, 06/26/2024, Additional history exists HbA1c 04/21/2025 10/22/2024, 09/2023, 03/26/2024, Additional history exists Mammogram 06/12/2025 06/12/2024, 05/27, 04/21/2023, Additional history exists Diabetic Eye Exam 07/06/2025 07/06/2024, , 07/06/2024, Additional history exists Albumin/Creatinine Ratio 10/22/2025 025, 08/05/2023, 11/01/2022, Additional history exists CKD HGB USE SMARTSET 74742 10/22/202510/22, 10/22/2024, 10/11/2024, Additional history exists Diabetic [...] discussion- Primary Other specified counseling Atherosclerosis of [place] coronary artery of [place] heart without angina pectoris Carotid artery stenosis, asymptomatic, right Essential hypertension with goal blood pressure less than 140/[address] [place] [address] Other postprocedural status 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 3b chronic kidney disease ([facility]) Recurrent deep vein thrombosis (DVT) of both lower extremities ([facility]) Chronic hypoxemic respiratory failure ([facility] [...] discussion- Primary Other specified counseling Atherosclerosis of [place] coronary artery of [place] heart without angina pectoris Frank filter in [...] of insulin ([facility]) History of [...] of insulin (HCC) ILD (interstitial lung disease) ([facility])- Primary Postinflammatory pulmonary fibrosis Chronic hypoxemic respiratory failure (HCC) Chronic respiratory failure SOB (shortness of breath) Shortness of breath ELISSA (obstructive sleep apnea) Obstructive sleep apnea (adult) (pediatric) Screening mammogram for breast cancer documented in this encounter Advance Directives Documents on File Type Date Recorded Patient Recreational Therapy Technician Expl anation POLST 03/19/2020 4:25 PM [...] (no specific identity) Health Care Power of Tomb Maker Helper Princesseugene Thrashery Other - (no specific identity) Health Care Power of Tomb Maker Helper Care Teams Cleaner Operator Relationship Specialty Start Date End Date Galdino Andujar DO [address] [place] [address] PCP - General Internal Medicine 03/08/24 documented as of this encounter
--- OUTSIDE RECORDS SUMMARY | 2025-01-23 23:56 | External Medical Summary | Summary of Care ---
Author Name Unknown Organization [facility] Address [address] [place] [address] Phone [phone] Care Team Providers Care Med Surg Nurse Name Role Phone Galdino Andujar DO Primary Care Provider [phone] Reason for Visit * Reason Onset Date Comments FYI 12/17/2024 dme Encounter Details Date Type Department Care Team (Late st Contact Info) Description 12/17/2024 Telephone Family Practice 65 [facility] [place] [address] [place] [address] Galdino Andujar DO [address] [place] [address] FYI (dme) Allergies Active Allergy [...] G7 Sensor Use as directed. (From [facility]) 06/01/20 Active OneTouch Verio In Vitro Strip [...] EDT 11/07/19 25 Active Comfort EZ Pen [place] 31G X 8 MM (Insulin Pen Needle) [...] 8:05 AM EDT): Home PT to start [place] filter in place 08/19/2014 History of pulmonary [...] mRNA, LNP-s, No Pre serve, 2-Dose Series (Thirsty) 01/08/2021,12/18/2020 COVID-19, LNP-s, No Preserve , Navarro-sucrose, Ages 12+ (Pfizer) 2022,10/01/2021 COVID-19, MRNA-LNP, PF, 30 M CG/0.3 mL, 12 YRS AND ABOVE, IM ([facility]) 07/31/2024,07/26/2023 Pneumococcal Conjugate Vacci ne, 20-valent ([id number]) 03/12/2022 Pneumococcal Polysaccharide PPV23 (Pneumovax) 08/22/2009,06/15/2006 RSV [...] 11:00 AM EDT Pharmacy Family Practice 65 [facility] [place] 293 [place] [address] College, Pharmacist [address] [place] [address] 12/20/2024 11:20 AM EDT Office Visit Family Practice [address] [place] [address] 293 [place] [phone] Galdino Andujar, DO 293 [place] [address] 12/25/2024 1:00 PM EDT [facility] Visit [facility], [facility] 132 [facility] [place] [address] Sathish Lundberg PA-C 132 [facility] [place] [address] 12/27/2024 1:40 PM EDT Home Visit [facility] [address] [place] [address] Angi Hagen [facility] Clinical Applications Manager [address] [place] [address] 01/09/2025 9:00 AM EDT Office Visit Urogynecology [facility] [address] [place] [address] Al Meyers MD 132 [facility] [place] [address] 02/05/2025 1:00 PM EDT Office Visit Family Practice [address] [place] [address] 293 [place] [phone] Galdino Andujar, DO 293 [place] [address] 02/14/2025 1:30 PM EDT [facility] Visit [facility], [facility] [address] [place] [address] Jarrett Mathis, RN [address] [place] [address] 06/13/2025 1:30 PM EDT Imaging Radiology [address] [place] [address] 06/24/2025 11:30 AM EDT Office Visit Pulmonary Medicine, [facility] [address] [place] [address] Jhonny Holley MD [address] [place] [address] 11/11/2025 1:15 PM EST Imaging Radiology [address] [place] [address] Scheduled Procedures Name Priority Associated Diagnoses Date/Ti me COLONOSCOPY FLEXIBLE PROXIMAL DIAGNOSTIC Recall Colon cancer screening Health Maintenance Due Date Last Done Comments Cologuard 2000 Fecal Occult Blood Test 2000 Sigmoidoscopy 2000 CKD PHOS USE SMARTSET 49106 12/26/202410/2023, 02/11/2023, 01/07/2022, Additional history exists Adult Wellness Visit 02/13/2025 02/14/2024, 08/05/20 22 GFR 04/21/2025 10/22/2024, 08/27, 06/26/2024, Additional history exists HbA1c 04/21/2025 10/22/2024, 09/2023, 03/26/2024, Additional history exists Mammogram 06/12/2025 06/12/2024, 05/27, 04/21/2023, Additional history exists Diabetic Eye Exam 07/06/2025 07/06/2024, , 07/06/2024, Additional history exists Albumin/Creatinine Ratio 10/22/2025 025, 08/05/2023, 11/01/2022, Additional history exists CKD HGB USE SMARTSET 74539 10/22/202510/22, 10/22/2024, 10/11/2024, Additional history exists Diabetic [...] discussion- Primary Other specified counseling Atherosclerosis of [place] coronary artery of [place] heart without angina pectoris Carotid artery stenosis, [...] discussion- Primary Other specified counseling Atherosclerosis of [place] coronary artery of [place] heart without angina pectoris [place] filter in place Other postprocedural status Hypertensive [...] current use of insulin ([facility]) History of pulmonary embolus [...] Documents on File Type Date Recorded Patient Finish Carpenter Expl anation POLST 03/19/2020 4:25 PM POLST [...] (no specific identity) Health Care Power of Media Center Assistant Princess Staplesfany Other - (no specific identity) Health Care Power of Media Center Assistant Care Teams Med Surg Nurse Relationship Specialty Start Date End Date Galdino Andujar DO [address] [place] [address] PCP - General Internal Medicine 03/08/24 documented as of this encounter
--- OUTSIDE RECORDS SUMMARY | 2025-01-23 23:56 | External Medical Summary | Summary of Care ---
Author Name Unknown Organization [facility] Address [address] [place] [address] Phone [phone] Care Team Providers Care Chair Trimmer Name Role Phone Lexii Andujar DO Primary Care Provider [phone] Reason for Visit * Reason Onset Date Comments FYI 12/17/2024 dme Encounter Details Date Type Department Care Team (Late st Contact Info) Description 12/17/2024 Telephone Family Practice [address] [facility] [place] [address] [place] [address] Lexii Andujar DO 293 [place] [address] FYI (dme) Allergies Active Allergy [...] (From [facility]) 06/01/20 Active Mounjaro 7.5 MG/0.5ML Subcutaneous Solution Auto-injector (Tirzepatide)Indic ations:Type 2 diabetes mellitus with stage 3b chronic kidney disease, with long-term current use of insulin (HCC) Inject 7.5 mg under the skin once a week. 2 mL 11 5 10:42 AM EDT 06/26/20 24 Active Aspirin 81 MG Oral Tablet Delayed ReleaseIndications :Type 2 diabetes mellitus with hemoglobin A1c goal of 7.0%-8.0% ([facility]) Take 1 Tablet by mouth in the [...] 1 Tablet before bedtime. 56 Tablet 11 02/12/20 25 Active Fluticasone Propionate 50 MCG/ACT Nasal Suspension (Flonase) Administer 2 Sprays into nostril in the morning and 2 Sprays before bedtime. 16 g 5 11:11 AM EDT 11/07/19 25 Active [...] [facility]),Chronic diastolic congestive heart failure (HCC) Take 1 Tablet by mouth in the morning and 1 Tablet before bedtime. 56 Tablet 11/07/19 25 Active NovoLOG FlexPen 100 UNIT/ML Subcutaneous Solution Pen-injector (insulin aspart)Indications :Type 2 diabetes mellitus with hemoglobin A1c goal of 7.0%-8.0% ([facility]) Inject 8 units with breakfast and 6 [...] [facility]Chronic diastolic congestive heart failure ([facility]) Take 1 Tablet by mouth in the [...] of 7.0%-8.0% ([facility]) INJECT 38 UNITS UNDER THE SKIN IN [...] 025 Discontin ued(Medic ation List Clean Up) Ondansetron HCl 4 MG Oral Tablet (Zofran)Indication [...] 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 Atherosclerosis of [place] co ronary artery without angina pectoris 12/31/2021 [...] mRNA, LNP-s, No Pre serve, 2-Dose Series ([email or web address][employer]com) 01/08/2021,12/18/2020 COVID-19, LNP-s, No Preserve , Navarro-sucrose, Ages 12+ ([employer]com) 2022,10/01/2021 COVID-19, MRNA-LNP, PF, 30 M CG/0.3 mL, 12 YRS AND ABOVE, IM (PFIZER-[facility]) 07/31/2024,07/26/2023 Pneumococcal Conjugate Vacci ne, 20-valent ([id number]) 03/12/2022 Pneumococcal Polysaccharide PPV23 (Pneumovax) 08/22/2009,06/15/2006 RSV [...] 12/20/2024 2:46 PM EDT [facility] thru [facility] portal. Thank you * Addendum Note - [...] Description 12/25/2024 1:00 PM EDT Home Visit [facility] [address] [place] [address] Sathish Lundberg PA-C 132 [place] [address] 12/27/2024 1:40 PM EDT Home Visit [facility] Integration [address] [place] [address] Angi Hagen, Community Health Stamp Press Operator [address] [place] [address] 01/09/2025 9:00 AM EDT Office Visit Urogynecology [facility] [address] [place] [address] Al Meyers MD [address] [place] [address] 02/05/2025 1:00 PM EDT Office Visit Family Practice [address] [phone] Lexii Andujar, DO 293 [facility] [place] [address] 02/14/2025 1:30 PM EDT [facility] [address] [place] [address] Jarrett Mathis, RN [address] [place] [address] 06/13/2025 1:30 PM EDT Imaging Radiology [address] [facility] [place] [phone] 06/24/2025 11:30 AM EDT Office Visit Pulmonary Medicine, [facility] [place] [phone] Jhonny Holley MD [address] [place] [address] 11/11/2025 1:15 PM EST Imaging Radiology [address] [facility] [place] [phone] Scheduled Procedures Name Priority Associated Diagnoses Date/Ti me COLONOSCOPY FLEXIBLE PROXIMAL DIAGNOSTIC Recall Colon cancer screening Health Maintenance Due Date Last Done Comments Cologuard 2000 Fecal Occult Blood Test 2000 Sigmoidoscopy 2000 CKD PHOS USE SMARTSET 34392 12/26/2024 040 10/2023, 02/11/2023, 01/07/2022, Additional history exists Adult Wellness Visit 02/13/2025 02/14/2024, 08/05/20 22 GFR 04/21/2025 10/22/2024, 1211/2023, 06/26/2024, Additional history exists HbA1c 04/21/2025 10/22/2024, 1009/2023, 03/26/2024, Additional history exists Mammogram 06/12/2025 06/12/2024, 05/27, 04/21/2023, Additional history exists Diabetic Eye Exam 07/06/2025 07/06/2024, , 07/06/2024, Additional history exists Albumin/Creatinine Ratio 10/22/2025 025, 08/05/2023, 11/01/2022, Additional history exists CKD HGB USE SMARTSET 75330 10/22/202510/22, 10/22/2024, 10/11/2024, Additional history exists Diabetic [...] use of insulin ([facility]) Restless legs syndrome Restless legs syndrome (RLS) ELLIE (generalized anxiety disorder) Generalized anxiety disorder Mild episode of recurrent major depressive disorder ([facility]) Advanced care planning/counseling discussion Other specified counseling ILD (interstitial lung disease) ([facility])- Primary Postinflammatory pulmonary fibrosis Fibromyalgia Mylagia and myositis, unspecified Moderate episode of recurrent major depressive disorder ([facility]) Primary osteoarthritis of both knees Primary localized osteoarthrosis, lower leg Chronic hypoxemic respiratory failure (HCC) Chronic respiratory failure 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 3b chronic kidney disease ([facility]) Advanced care planning/counseling discussion- Primary Other specified counseling Atherosclerosis of [place] coronary artery of [place] heart without angina pectoris Carotid artery stenosis, asymptomatic, right Essential hypertension with goal blood pressure less than 140/[address] [address] Other postprocedural status 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 3b chronic kidney disease ([facility]) Recurrent deep vein thrombosis (DVT) of both lower extremities (HCC) Chronic hypoxemic respiratory failure (HCC) Chronic respiratory failure ELISSA (obstructive sleep apnea) Obstructive sleep apnea (adult) (pediatric) Type 2 diabetes mellitus with hemoglobin A1c goal of less than 8.0% ([facility]) Fibromyalgia Mylagia and myositis, unspecified Restless legs syndrome Restless legs syndrome (RLS) Chronic kidney disease, stage 3b ([facility]) History of pulmonary embolus (PE) Personal history of pulmonary embolism Moderate episode of recurrent major depressive disorder ([facility]) Advanced care planning/counseling discussion- Primary Other specified counseling Atherosclerosis of [place] coronary artery of [place] heart without angina pectoris Frank filter in [...] Documents on File Type Date Recorded Patient Mid Level Business Analyst Expl anation POLST 03/19/2020 4:25 PM [...] (no specific identity) Health Care Power of Glass Curvature Gauger Princess Allen Other - (no specific identity) Health Care Power of Glass Curvature Gauger Care Teams Chair Trimmer Relationship Specialty Start Date End Date Lexii Andujar DO [address] [place] [address] PCP - General Internal Medicine 03/08/24 documented as of this encounter
--- OUTSIDE RECORDS SUMMARY | 2025-01-23 23:56 | External Medical Summary | Summary of Care ---
Author Name Unknown Organization [facility] Address [address] [place] [address] Phone [phone] Care Team Providers Care Director Of Home Health Services Name Role Phone Lexii Andujar DO Primary Care Provider [phone] Reason for Visit * Reason Onset Date Comments FYI 12/17/2024 dme Encounter Details Date Type Department Care Team (Late st Contact Info) Description 12/17/2024 Telephone Family Practice 65 [facility] [place] [place] [address] [place] [address] Lexii Andujar DO [address] [place] [address] FYI (dme) Allergies Active Allergy [...] Dexcom G7 Sensor Use as directed. (From [facility]) 06/01/20 Active OneTouch Verio In Vitro [...] ([facility]) Inject 8 units with breakfast and [...] ([facility]) INJECT 38 UNITS UNDER THE SKIN IN THE EVENING 15 mL 5 11/14/2024 3:25 PM EST 11/07/19 25 Active Clopidogrel Bisulfate 75 MG Oral Tablet (pLAVix) Take 1 Tablet by mouth in the morning. 28 Tablet 11 12/04/2024 11:11 AM EDT 11/07/19 25 Active Comfort EZ Pen [place] 31G X 8 MM (Insulin Pen Needle) [...] has rx for atorvastatin and plavix to mushroom picker at pharmacy. Type 2 diabetes mellitus [...] 8:05 AM EDT): Home PT to start [place] filter in place 08/19/2014 History of [...] rx evidently given by vascular, has to mushroom picker rx documented as of this encounter [...] mRNA, LNP-s, No Pre serve, 2-Dose Series ([employer] Aril) 01/08/2021,12/18/2020 COVID-19, LNP-s, No Preserve , Navarro-sucrose, Ages 12+ (Pfizer) 2022,10/01/2021 COVID-19, MRNA-LNP, PF, 30 M CG/0.3 mL, 12 YRS AND ABOVE, IM ([facility]) 07/31/2024,07/26/2023 Pneumococcal Conjugate Vacci ne, 20-valent ([id number]) 03/12/2022 Pneumococcal Polysaccharide PPV23 (Pneumovax) 08/22/2009,06/15/2006 RSV [...] 12/20/2024 11:00 AM EDT Pharmacy Family Practice [address] [place] [address] [address] [place] [phone] College, Pharmacist [address] [place] [address] 12/20/2024 11:20 AM EDT Office Visit Family Practice [address] [place] [address] [address] [place] [phone] Lexii Andujar, [address] [place] [address] 12/25/2024 1:00 PM EDT [facility] [address] [facility] [place] [address] aSthish Lundberg PA-C [facility] [place] [address] 12/27/2024 1:40 PM EDT Home Visit Care Coordination and Integration [address] [facility] [address] Angi Hagen, Community Health Utility Bill Collection Clerk [address] [place] [address] 01/09/2025 9:00 AM EDT Office Visit Urogynecology [facility] [address] [place] [address] Al Meyers MD [address] [place] [address] 02/05/2025 1:00 PM EDT Office Visit Family Practice [address] [facility] [place] 293 [place] [address] Lexii Andujar, 293 [place] [address] 02/14/2025 1:30 PM EDT Home Visit [facility] [address] [place] [address] Jarrett Mathis, RN 132 [facility] [place] [address] 06/13/2025 1:30 PM EDT Imaging Radiology [address] [facility] [place] [phone] 06/24/2025 11:30 AM EDT Office Visit Pulmonary Medicine, [facility] [place] [phone] Jhonny Holley MD [address] [place] [address] 11/11/2025 1:15 PM EST Imaging Radiology [address] [facility] [place] [phone] Scheduled Procedures Name Priority Associated Diagnoses Date/Ti me COLONOSCOPY FLEXIBLE PROXIMAL DIAGNOSTIC Recall Colon cancer screening Health Maintenance Due Date Last Done Comments Cologuard 2000 Fecal Occult Blood Test 2000 Sigmoidoscopy 2000 CKD PHOS USE SMARTSET 34389 12/26/2024 04/0 10/2023, 02/11/2023, 01/07/2022, Additional history [...] Additional history exists CKD HGB USE SMARTSET 61824 10/22/202510/22, 10/22/2024, 10/11/2024, Additional history exists Diabetic [...] stage 3 ([facility])- Primary Fibromyalgia Mylagia and myositis, unspecified Primary osteoarthritis of both knees Primary localized osteoarthrosis, lower leg Anxiety state Anxiety state, unspecified Recurrent deep vein thrombosis (DVT) of both lower extremities ([facility]) Chronic hypoxemic respiratory failure ([facility]) Chronic respiratory failure 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 3b chronic kidney disease, with long-term current use of insulin ([facility]) Restless legs syndrome Restless legs syndrome (RLS) ELLIE (generalized anxiety disorder) Generalized anxiety disorder Mild episode of recurrent major depressive disorder ([facility]) Advanced care planning/counseling discussion Other specified counseling ILD (interstitial lung disease) ([facility])- Primary Postinflammatory pulmonary fibrosis Fibromyalgia Mylagia and myositis, unspecified Moderate episode of recurrent major depressive disorder ([facility]) Primary osteoarthritis of both knees Primary localized osteoarthrosis, lower leg Chronic hypoxemic respiratory failure (HCC) Chronic respiratory failure 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 3b chronic kidney disease ([facility]) Advanced care planning/counseling discussion- Primary Other specified counseling Atherosclerosis of [place] coronary artery of [place] heart without angina pectoris Carotid artery stenosis, [...] 8.0% ([facility]) Fibromyalgia Mylagia and myositis, unspecified Restless legs syndrome Restless legs syndrome (RLS) Chronic kidney disease, stage 3b ([facility]) History of pulmonary embolus (PE) Personal history of pulmonary embolism Moderate episode of recurrent major depressive disorder ([facility]) Advanced care planning/counseling discussion- Primary Other specified counseling Atherosclerosis of [place] coronary artery of [place] heart without angina pectoris Frank filter in place Other postprocedural status 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 3b chronic kidney disease ([facility]) Recurrent deep vein thrombosis (DVT) of [...] on File Type Date Recorded Patient Charge Gang Weigher Expl anation POLST 03/19/2020 4:25 PM POLST [...] (no specific identity) Health Care Power of Aquaculture Director Princess Other - (no specific identity) Health Care Power of Aquaculture Director Care Teams Director Of Home Health Services Relationship Specialty Start Date End Date Lexii Andujar DO [address] [place] [address] PCP - General Internal Medicine 03/08/24 documented as of this encounter
--- OUTSIDE RECORDS SUMMARY | 2025-01-23 23:57 | External Medical Summary | Summary of Care ---
Author Name Unknown Organization [facility] Address [address] [place] [address] Phone [phone] Care Team Providers Care Mill Laborer Name Role Phone PratimaGaldino DO Primary Care Provider [phone] Reason for Visit * Reason Onset Date Comments [facility]: Maintenance 12/17/2024 Encounter Details Date Type Department Care Team (Late st Contact Info) Description 12/17/2024 Telephone [facility], [facility] [address] [place] [address] Aniya Nassar RN [address] [place] [address] [facility]: Maintenance Allergies Active Allergy [...] as of this encounter (statuses as of 12/17/2024) Medications ONETOUCH DELICA LANCETS 33G MISC Check blood sugars 3-4 times daily 180 Each 5 08/01/20 18 Active Additional Information Patient not taking.Reported [...] Dexcom G7 Sensor Use as directed. (From [facility]) 06/01/20 Active OneTouch Verio In Vitro Strip (Glucose Blood)Indications: Hypoglycemia,Type 2 diabetes mellitus with stage 3b chronic kidney disease, with long-term current use of insulin (HCC) Use up to 4 times a day in case of dexcom failure 100 Strip 11 5 2:23 PM EDT 02/02/20 Active Additional Information Patient not taking.Reported on 12/17/2024 Mounjaro 7.5 MG/0.5ML Subcutaneous Solution Auto-injector (Tirzepatide)Indic ations:Type 2 diabetes mellitus with stage 3b chronic kidney disease, with long-term current use of insulin (HCC) Inject 7.5 mg under the skin once a week. 2 mL 11 5 4:27 PM EST 06/26/20 Active Ondansetron HCl 4 MG Oral [...] breakfast or other meds) 28 Tablet 11 5 11:11 AM EDT [...] goal of 7.0%-8.0% ([facility]) Inject 8 units with breakfast [...] Additional Information Patient not taking.Reported on 12/17/2024 Potassium Chloride Ayleen ER 20 MEQ Oral [...] by mouth at bedtime. 28 Tablet 5 11:11 AM EDT 11/07/19 [...] goal of 7.0%-8.0% ([facility]) INJECT 38 UNITS UNDER THE SKIN IN THE EVENING 15 mL 5 5 3:25 PM EST 11/07/19 25 Active Clopidogrel Bisulfate 75 MG Oral Tablet (pLAVix) Take 1 Tablet by mouth in the morning. 28 Tablet 11 5 11:11 AM EDT 11/07/19 25 Active Comfort EZ Pen [place] 31G X 8 MM (Insulin Pen Needle) use five times daily 500 Each 2 5 11:42 AM EST 11/16/19 25 Active Ciprofloxacin HCl 250 MG Oral Tablet (Cipro)Indications :Acute cystitis without hematuria Take 1 Tablet by mouth in the morning and 1 Tablet before bedtime. Hold Tizanidine while taking Cipro. 10 Tablet 5 4:27 PM EST 11/28/19 25 Active Additional Information Patient not taking.Reported on 12/17/2024 tiZANidine HCl 4 MG Oral Tablet (Zanaflex)Indicati [...] 1 tablet by mouth daily 50 Tablet 12/15/19 25 Active traMADol HCl 50 MG Oral Tablet (Ultram)Indication s:Lumbar radiculopathy,Prim elif osteoarthritis of both knees Take 1 Tablet by mouth every 8 hours as needed for Pain, Severe. 90 Tablet 5 10:28 AM EST 11/07/19 25 025 Discontin ued(Refil l) Hospital, Clinic, [...] as of this encounter (statuses as of 12/17/2024) Active Problems Problem Noted Date Diagnosed Date [...] reports upcoming carotid surgery at [facility]. She states she has rx [...] stable Heparin induced thrombocytopenia (HIT) Atherosclerosis of [place] co ronary artery without [...] 8:05 AM EDT): Home PT to start [place] filter in place 08/19/2014 History of pulmonary [...] as of this encounter (statuses as of 12/17/2024) Resolved Problems Problem Noted Date Diagnosed Date [...] as of this encounter (statuses as of 12/17/2024) Immunizations Name Administration Dates Next Due COVID-19 mRNA, LNP-s, No Pre serve, 2-Dose Series (Pfizer) 01/08/2021,12/18/2020 COVID-19, LNP-s, No Preserve , Navarro-sucrose, Ages 12+ (Pfizer) 2022,10/01/2021 COVID-19, MRNA-LNP, PF, 30 M CG/0.3 mL, 12 YRS AND ABOVE, IM (PFIZER-Comirnaty) 07/31/2024,07/26/2023 Pneumococcal Conjugate Vacci ne, 20-valent ([id number]) 03/12/2022 Pneumococcal Polysaccharide PPV23 (Pneumovax) 08/22/2009,06/15/2006 RSV [...] Miscellaneous Notes * Telephone Encounter - Ingrid Rene LPN - 12/17/2024 11:58 AM EDT Noted, Suzanne working on ROSA visit. Also addressing previous concerns of bedbugs, need to make sure resolved. Ingrid Rene LPN [facility] 12/17/2024,11:58 AM * Telephone Encounter - Aniya Nassar RN - 12/17/2024 9:40 AM EDT TT received from [place] Gutierrez that patient has been D/C from [facility] on 12/[address] [facility] for status check Message also placed in teams chat to schedule TOCs documented in this encounter Plan of Treatment Upcoming Encounters Date Type Department Care Team (Late st Contact Info) Description 12/17/2024 5:00 PM EDT Home Visit [facility], [facility] [address] [place] [address] Vera Capellan RN [address] [place] [address] 12/19/2024 1:30 PM EDT Office Visit Pulmonary Medicine, [facility] [address] [place] [address] Jhon[facility] [address] [facility] [address] 12/20/2024 11:00 AM EDT Pharmacy Family Practice [address] [facility] 293 [place] [address] College, Pharmacist [address] [place] [address] 12/20/2024 11:20 AM EDT Office Visit Family Practice [address] [facility] 293 [place] [address] Galdino Andujar, DO 293 [place] [address] 01/09/2025 9:00 AM EDT Office Visit Urogynecology [facility] [address] [place] [address] Al Meyers MD [address] [place] [address] 02/05/2025 1:00 PM EDT Office Visit Family Practice [address] [facility] [place] [address] [place] [address] Galdino Andujar DO [address] [place], [place] [address] 06/13/2025 1:30 PM EDT Imaging Radiology [address] [place] [address] 11/11/2025 1:15 PM EST Imaging Radiology [address] [place] [phone] Scheduled Procedures Name Priority Associated Diagnoses Date/Ti me COLONOSCOPY FLEXIBLE PROXIMAL DIAGNOSTIC Recall Colon cancer screening Health Maintenance Due Date Last Done Comments Cologuard 2000 Fecal Occult Blood Test 2000 Sigmoidoscopy 2000 CKD PHOS USE SMARTSET 17629 12/26/2024 04/0 10/2023, 02/11/2023, 01/07/2022, Additional history [...] Additional history exists CKD HGB USE SMARTSET 15707 10/22/202510/22, 10/22/2024, 10/11/2024, Additional history exists Diabetic [...] on File Type Date Recorded Patient Metal Baler Expl anation POLST 03/19/2020 4:25 PM POLST [...] (no specific identity) Health Care Power of Graduate Fellow Princess Thrashery Other - (no specific identity) Health Care Power of Graduate Fellow Care Teams Mill Laborer Relationship Specialty Start Date End Date Galdino Andujar DO [address] [place] [address] PCP - General Internal Medicine 03/08/24 documented as of this encounter
--- OUTSIDE RECORDS SUMMARY | 2025-01-23 23:57 | External Medical Summary | Summary of Care ---
Author Name Unknown Organization [facility] Address [address] [place] [address] Phone [phone] Care Team Providers Care Emergency Care Tech Name Role Phone PratimaGaldino DO Primary Care Provider [phone] Reason for Visit * Reason Onset Date Comments [facility]: Maintenance 12/17/2024 Encounter Details Date Type Department Care Team (Late st Contact Info) Description 12/17/2024 Telephone [facility], [place] [address] [place] [phone] OskarRajwinder, ELISSA [address] [place] [address] [facility]: Maintenance Allergies [...] Dexcom G7 Sensor Use as directed. (From [facility]) 06/01/20 Active OneTouch Verio In Vitro [...] 2 times a day. 84 Tablet 11 5 11:11 AM EDT 11/07/19 [...] [facility]),Chronic diastolic congestive heart failure (HCC) Take [...] [facility]),Chronic diastolic congestive heart failure (HCC) Take [...] EDT 11/07/19 25 Active Comfort EZ Pen [place] 31G X 8 MM (Insulin Pen Needle) [...] EST 11/07/19 25 025 Discontin ued(Refil l) Ciprofloxacin HCl 250 MG Oral Tablet (Cipro)Indications :Acute cystitis without hematuria Take 1 Tablet by mouth in the morning and 1 Tablet before bedtime. Hold Tizanidine while taking Cipro. 10 Tablet 5 4:27 PM EST 11/28/19 25 025 Discontin ued(Medic ation List Clean Up) [...] carotid surgery at [facility]. She states she has rx for atorvastatin and plavix to pharmacy picking tech at pharmacy. 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 Atherosclerosis of [place] ronary artery without angina pectoris 12/31/2021 [...] 8:05 AM EDT): Home PT to start [place] filter in place 08/19/2014 History of pulmonary [...] given by vascular, has to pharmacy picking tech rx documented as of this [...] (PFIZER-Comirnaty) 07/31/2024,07/26/2023 Pneumococcal Conjugate Vacci ne, 20-valent ([id number]) 03/12/2022 Pneumococcal Polysaccharide PPV23 (Pneumovax) 08/22/2009,06/15/2006 RSV [...] encounter Miscellaneous Notes * Telephone Encounter - Rajwinder Schmitt OSA - 12/17/2024 12:41 PM EDT Request from Suzanne Evans to schedule pt to see Vera PERSAUD today in her 5 pm slot. She asked that we rs the original pt scheduled for 5 pm to accommodate this brad pt. Called and spoke to pt. She confirmed today 12/17 hv with RNCM at 5 pm works for her. documented in this encounter Plan of Treatment Upcoming Encounters Date Type Department Care Team (Late st Contact Info) Description 12/19/2024 1:30 PM EDT Office Visit Pulmonary Medicine, [facility] [address] [place] [address] Jhonny Holley MD [address] [place] [address] 12/20/2024 11:00 AM EDT Pharmacy Family Practice 65 [facility] 293 [place] [phone] College, Pharmacist [address] [place] [address] 12/20/2024 11:20 AM EDT Office Visit Family Practice [address] [place] [address] 293 [place] [phone] Galdino Andujar, DO 293 [facility] [place] [address] 01/09/2025 9:00 AM EDT Office Visit Urogynecology [facility] 132 [facility] [place] [address] Al [facility]ers MD [facility] [place] [address] 02/05/2025 1:00 PM EDT Office Visit Family Practice [address] [place] [address] 293 [place] [phone] Galdino Andujar, DO 293 [facility] [place] [address] 02/14/2025 1:30 PM EDT Home Visit [facility], [facility] [address] [place] [address] Jarrett Mathis, RN [address] [place] [address] 06/13/2025 1:30 PM EDT Imaging Radiology [facility] 1st [facility] [place] [address] [place] [address] 11/11/2025 1:15 PM EST Imaging Radiology [facility] [address] [facility] [place] [address] [place] [phone] Scheduled Procedures Name Priority Associated Diagnoses Date/Ti me COLONOSCOPY FLEXIBLE PROXIMAL DIAGNOSTIC Recall Colon cancer screening Health Maintenance Due Date Last Done Comments Cologuard 2000 Fecal Occult Blood Test 2000 Sigmoidoscopy 2000 CKD PHOS USE SMARTSET 22411 12/26/2024 040 10/2023, 02/11/2023, 01/07/2022, Additional history exists Adult Wellness Visit 02/13/2025 02/14/2024, 08/05/20 22 GFR 04/21/2025 10/22/2024, 08/27, 06/26/2024, Additional history exists HbA1c 04/21/2025 10/22/2024, 09/2023, 03/26/2024, Additional history exists Mammogram 06/12/2025 06/12/2024, 05/27, 04/21/2023, Additional history exists Diabetic Eye Exam 07/06/2025 07/06/2024, , 07/06/2024, Additional history exists Albumin/Creatinine Ratio 10/22/2025 025, 08/05/2023, 11/01/2022, Additional history exists CKD HGB USE SMARTSET 00122 10/22/202510/22, 10/22/2024, 10/11/2024, Additional history exists Diabetic [...] on File Type Date Recorded Patient Personnel Security Assistant Expl anation POLST 03/19/2020 4:25 PM [...] (no specific identity) Health Care Power of Flower Buncher Or Picker Princess Allen Other - (no specific identity) Health Care Power of Flower Buncher Or Picker Care Teams Emergency Care Tech Relationship Specialty Start Date End Date Galdino Andujar DO [address] [facility] [place] [address] PCP - General Internal Medicine 03/08/24 documented as of this encounter
--- OUTSIDE RECORDS SUMMARY | 2025-01-23 23:57 | External Medical Summary | Summary of Care ---
Author Name Unknown Organization [facility] Address [address] [place] [address] Phone [phone] Care Team Providers Care Glassworker Name Role Phone PratimaGaldino DO Primary Care Provider [phone] Reason for Visit * Reason Onset Date Comments Appointment 12/18/2024 Encounter Details Date Type Department Care Team (Late st Contact Info) Description 12/18/2024 Telephone [facility], [facility] [address] [facility] [place] [address] Migdalia Sher OSA [address] [place] [address] Appointment (/) Allergies Active Allergy Reactions Criticality Noted Date [...] as of this encounter (statuses as of 12/18/2024) Medications ONETOUCH DELICA LANCETS 33G MISC Check [...] Use as directed. (From [facility]) 06/01/20 Active OneTouch Verio In Vitro [...] in the morning. 28 Tablet 11 11/07/19 Active Cholecalciferol 25 MCG (1000 UT) Oral CapsuleIndications :Vitamin D deficiency Take 1 Capsule by mouth in the morning. 28 Capsule 5 12/20 25 Active Dicyclomine HCl 20 MG Oral [...] 1 Tablet before bedtime. 56 Tablet 11/07/19 Active NovoLOG FlexPen 100 UNIT/ML Subcutaneous Solution [...] EDT 11/07/19 25 Active Comfort EZ Pen [place] 31G X 8 MM (Insulin Pen Needle) [...] as of this encounter (statuses as of 12/18/2024) Active Problems Problem Noted Date Diagnosed Date [...] as of this encounter (statuses as of 12/18/2024) Resolved Problems Problem Noted Date Diagnosed Date [...] as of this encounter (statuses as of 12/18/2024) Immunizations Name Administration Dates Next Due COVID-19 mRNA, LNP-s, No Pre serve, 2-Dose Series ([employer]) 01/08/2021,12/18/2020 COVID-19, LNP-s, No Preserve , Navarro-sucrose, Ages 12+ (Pfizer) 2022,10/01/2021 COVID-19, MRNA-LNP, PF, 30 M CG/0.3 mL, 12 YRS AND ABOVE, IM (PFIZER-Comirnaty) 07/31/2024,07/26/2023 Pneumococcal Conjugate Vacci ne, 20-valent ([id number]) 03/12/2022 Pneumococcal Polysaccharide PPV23 (Pneumovax) 08/22/2009,06/15/2006 RSV [...] Telephone Encounter - Migdalia Sher OSA - 12/18/2024 12:21 PM EDT Per Request schedule ROSA with PA... Called s/w pt she advised 12/25 at 1:30pm is a good date and time documented in this encounter Plan of Treatment Upcoming Encounters Date Type Department Care Team (Late st Contact Info) Description 12/19/2024 1:30 PM EDT Office Visit Pulmonary Medicine, [facility] 132 [facility] [place] [address] Jhonny Holley MD [address] [place] [address] 12/20/2024 11:00 AM EDT Pharmacy Family Practice [address] [place] [address] [facility] [address] College, Pharmacist [address] [place], [place] [address] [address] 12/20/2024 11:20 AM EDT Office Visit Family Practice [address] [place] [address] 293 [place] [phone] Galdino Andujar, DO 293 [place] [address] 12/25/2024 1:00 PM EDT [facility] Visit [facility], [facility] 132 [facility] [place] [address] Sathish Lundberg PA-C [address] [facility] [place] [address] 12/27/2024 1:40 PM EDT Home Visit Care Coordination and Integration [address] [place] [address] Angi Hagen, Community Health Supervisor [employer] [address] [place] [address] 01/09/2025 9:00 AM EDT Office Visit Urogynecology [facility] 132 [facility] [place] [address] Al Meyers MD [facility] [place] [address] 02/05/2025 1:00 PM EDT Office Visit Family Practice 65 [facility] 293 [place] [address] Galdino Andujar, DO 293 [place] [address] 02/14/2025 1:30 PM EDT Home Visit [facility], [facility] [address] [place] [address] Jarrett Mathis, RN [address] [place] [address] 06/13/2025 1:30 PM EDT Imaging Radiology [address] [place] [address] 11/11/2025 1:15 PM EST Imaging Radiology [address] [place] [phone] Scheduled Procedures Name Priority Associated Diagnoses Date/Ti me COLONOSCOPY FLEXIBLE PROXIMAL DIAGNOSTIC Recall Colon cancer screening Health Maintenance Due Date Last Done Comments Cologuard 2000 Fecal Occult Blood Test 2000 Sigmoidoscopy 2000 CKD PHOS USE SMARTSET 62797 12/26/2024 04/0 10/2023, 02/11/2023, 01/07/2022, Additional history [...] Additional history exists CKD HGB USE SMARTSET 68123 10/22/202510/22, 10/22/2024, 10/11/2024, Additional history exists Diabetic Foot Exam 10/22/2025 10/22/2024, 0 10/04/2023, 11/01/2022, Additional history exists TSH 10/22/2025 10/22/2024, 032 04/2024, 10/13/2023, Additional history exists Depression Monitoring 12/17/2025 [...] Documents on File Type Date Recorded Patient Casing Puller Expl anation POLST 03/19/2020 4:25 PM [...] (no specific identity) Health Care Power of Ob Tech Princess Allen Other - (no specific identity) Health Care Power of Ob Tech Care Teams Glassworker Relationship Specialty Start Date End Date Galdino Andujar DO [address] [place] [address] PCP - General Internal Medicine 03/08/24 documented as of this encounter
--- OUTSIDE RECORDS SUMMARY | 2025-01-23 23:57 | External Medical Summary | Summary of Care ---
Author Name Unknown Organization [facility] Address [address] [place] [address] Phone [phone] Care Team Providers Care Grievance And Appeals Coordinator Name Role Phone Lexii Andujar DO Primary Care Provider [phone] Reason for Visit * Reason Comments Medication Refill Encounter Details Date Type Department Care Team (Late st Contact Info) Description 12/11/2024 Refill Pharmacy, [facility] [address] [place] [address] Lexii Andujar DO [address] [place] [address] Restless legs syndrome; Anxiety state; Lumbar radiculopathy; [...] directed. (From [facility]) 06/01/20 Active OneTouch Verio In Vitro [...] [place]),Chronic diastolic congestive heart failure (HCC) Take 1 Tablet by mouth in the morning and 1 Tablet before bedtime. 56 Tablet 11/07/19 25 Active NovoLOG FlexPen 100 UNIT/ML Subcutaneous Solution Pen-injector (insulin aspart)Indications :Type 2 diabetes mellitus with hemoglobin A1c goal of 7.0%-8.0% ([facility] [place]) Inject 8 units with breakfast and 6 [...] [place]),Chronic diastolic congestive heart failure (HCC) Take 1 [...] ([facility] [place] [place]) INJECT 38 UNITS UNDER THE SKIN IN THE EVENING 15 mL 5 5 3:25 PM EST 11/07/19 25 Active Clopidogrel Bisulfate 75 MG Oral Tablet (pLAVix) Take 1 Tablet by mouth in the morning. 28 Tablet 11 5 11:11 AM EDT 11/07/19 25 Active Comfort EZ Pen [place] 31G X 8 MM (Insulin Pen Needle) [...] as needed for Pain, Severe. 90 Tablet 12/18/19 25 Active clonazePAM 0.5 MG Oral Tablet (KlonoPIN)Indicati ons:Restless legs syndrome,Anxiety state Take 1 Tablet by mouth in the morning and 1 Tablet at noon and 1 Tablet before bedtime. 84 Tablet 5 3:25 PM EST 11/07/19 25 025 Discontin ued(Refil l) traMADol HCl [...] 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 Atherosclerosis of [place] co ronary artery without angina pectoris 12/31/2021 [...] mRNA, LNP-s, No Pre serve, 2-Dose Series ([employer]) 01/08/2021,12/18/2020 COVID-19, LNP-s, No Preserve , Navarro-sucrose, Ages 12+ (Pfizer) 2022,10/01/2021 COVID-19, MRNA-LNP, PF, 30 M CG/0.3 mL, 12 YRS AND ABOVE, IM (PFIZER-Comirnaty) 07/31/2024,07/26/2023 Pneumococcal Conjugate Vacci ne, 20-valent ([id number]) 03/12/2022 Pneumococcal Polysaccharide PPV23 (Pneumovax) 08/22/2009,06/15/2006 RSV [...] Telephone Encounter - Lexii Andujar DO - 12/17/2024 12:47 PM EDTSigned Prescriptions: Disp Refills clonazePAM 0.5 MG Oral Tablet (KlonoPIN) 84 Tab*0 Sig: Take 1 Tablet by mouth in the morning and 1 Tablet at noon and 1 Tablet before bedtime. Authorizing Provider: LEXII ANDUJAR traMADol HCl 50 MG Oral Tablet (Ultram) 90 Tab*0 Sig: Take 1 Tablet by mouth every 8 hours as needed for Pain, Severe. Authorizing Provi zachary: LEXII ANDUJAR * Telephone Encounter - Lexii Andujar DO - 12/17/2024 12:46 PM EDT I have reviewed the patient’s controlled substance dispensing history in the Prescription Drug Monitoring Program in compliance with the [facility] regulations before prescribing a controlled substance. [...] in Results Review. * Telephone Encounter - Lexii Andujar DO - 12/13/2024 12:21 PM EDT I have reviewed the patient’s controlled substance dispensing history in the Prescription Drug Monitoring Program in compliance with the [facility] regulations before prescribing a controlled substance. [...] can be found in Results Review. Clonazepam is due Tramadol is due 12/17/2024 documented in this encounter Plan of Treatment Upcoming Encounters Date Type Department Care Team (Late st Contact Info) Description 12/19/2024 1:30 PM EDT Office Visit Pulmonary Medicine, [facility] 132 [facility] [place] [address] Jhonny Holley MD [address] [place] [address] 12/20/2024 11:00 AM EDT Pharmacy Family Practice [address] [place] [address] [place] [address] College, Pharmacist [address] [place] [address] 12/20/2024 11:20 AM EDT Office Visit Family Practice 65 [facility] 293 [place] [address] Lexii Andujar, DO 293 [place] [address] 01/09/2025 9:00 AM EDT Office Visit Urogy[facility]cology [facility] 132 [facility] [place] [address] Al Meyers MD 132 [facility] [place] [address] 02/05/2025 1:00 PM EDT Office Visit Family Practice [address] [place] [address] 293 [place] [address] Lexii Andujar, DO 293 [place] [address] 02/14/2025 1:30 PM EDT Home Visit [facility] [address] [address] Jarrett Mahtis, RN [address] [place] [address] 06/13/2025 1:30 PM EDT Imaging Radiology [address] [place] [phone] 11/11/2025 1:15 PM EST Imaging Radiology [address] [place] [phone] Scheduled Procedures Name Priority Associated Diagnoses Date/Ti me COLONOSCOPY FLEXIBLE PROXIMAL DIAGNOSTIC Recall Colon cancer screening Health Maintenance Due Date Last Done Comments Cologuard 2000 Fecal Occult Blood Test 2000 Sigmoidoscopy 2000 CKD PHOS USE SMARTSET 36678 12/26/2024 04/0 10/2023, 02/11/2023, 01/07/2022, Additional history exists Adult Wellness Visit 02/13/2025 02/14/2024, 08/05/20 22 GFR 04/21/2025 10/22/2024, 08/27, 06/26/2024, Additional history exists HbA1c 04/21/2025 10/22/2024, 1009/2023, 03/26/2024, Additional history exists Mammogram 06/12/2025 06/12/2024, 05/27, 04/21/2023, Additional history exists Diabetic Eye Exam 07/06/2025 07/06/2024, , 07/06/2024, Additional history exists Albumin/Creatinine Ratio 10/22/2025 025, 08/05/2023, 11/01/2022, Additional history exists CKD HGB USE SMARTSET 63882 10/22/202510/22, 10/22/2024, 10/11/2024, Additional history exists Diabetic [...] discussion- Primary Other specified counseling Atherosclerosis of [place] coronary artery of [place] heart without angina pectoris Carotid artery stenosis, [...] discussion- Primary Other specified counseling Atherosclerosis of [place] coronary artery of [place] heart without angina pectoris Mark filter in place Other postprocedural status Hypertensive [...] Documents on File Type Date Recorded Patient Labor Law Professor Expl anation POLST 03/19/2020 4:25 PM POLST [...] (no specific identity) Health Care Power of Cryptographic Machine Operator Princess Thrashery Other - (no specific identity) Health Care Power of Cryptographic Machine Operator Care Teams Grievance And Appeals Coordinator Relationship Specialty Start Date End Date Lexii Andujar DO [address] [place] [address] PCP - General Internal Medicine 03/08/24 documented as of this encounter
--- OUTSIDE RECORDS SUMMARY | 2025-01-23 23:57 | External Medical Summary | Summary of Care ---
Author Name Unknown Organization [facility] Address [address] [place] [address] Phone [phone] Care Team Providers Care Bradley Linebacker Crewmember Name Role Phone Galdino Andujar DO Primary Care Provider [phone] Encounter Details Date Type Department Care Team (Late st Contact Info) Description 12/17/2024 5:00 PM EDT [facility] [address] [place] [address] Vera Capellan, RN [address] [place] [address] Allergies Active Allergy Reactions Criticality Noted Date [...] Dexcom G7 Sensor Use as directed. (From [facility]) 06/01/20 Active OneTouch Verio In Vitro [...] [facility]) Take 1 Tablet by mouth [...] ([facility]) INJECT 38 UNITS UNDER THE SKIN IN THE EVENING 15 mL 5 5 3:25 PM EST 11/07/19 25 Active Clopidogrel Bisulfate 75 MG Oral Tablet (pLAVix) Take 1 Tablet by mouth in the morning. 28 Tablet 11 5 11:11 AM EDT 11/07/19 25 Active Comfort EZ Pen [place] 31G X 8 MM (Insulin Pen Needle) [...] Pain, Severe. 90 Tablet 12/18/19 25 Active Cefdinir 300 MG Oral [...] mouth daily 50 Tablet 12/15/19 25 Active Ciprofloxacin HCl 250 MG Oral [...] by vascular, reports upcoming carotid surgery at [facility]. She states she has rx [...] 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 Atherosclerosis of [place] co ronary artery without angina pectoris 12/31/2021 [...] 8:05 AM EDT): Home PT to start [place] filter in place 08/19/2014 History of pulmonary [...] mRNA, LNP-s, No Pre serve, 2-Dose Series ([employer]) 01/08/2021,12/18/2020 COVID-19, LNP-s, No Preserve , Navarro-sucrose, Ages 12+ (Pfizer) 2022,10/01/2021 COVID-19, MRNA-LNP, PF, 30 M CG/0.3 mL, 12 YRS AND ABOVE, IM (PFIZER-Comirnaty) 07/31/2024,07/26/2023 Pneumococcal Conjugate Vacci ne, 20-valent ([id number]) 03/12/2022 Pneumococcal Polysaccharide PPV23 (Pneumovax) 08/22/2009,06/15/2006 RSV [...] Sign Reading Time Taken Comments Blood Pressure 136/70 12/17/2024 5:17 PM EDT Pulse 88 12/17/2024 5:17 PM EDT Temperature 36.2 °C (97.1 °F) 12/17/2024 5 :17 PM EDT Respiratory Rate 18 12/17/2024 5:17 PM EDT Oxygen Saturation 97% 12/17/2024 5:1 7 PM EDT o2 on at 3 l/min via nc Inhaled Oxygen Concentration - - Weight - - Height - - Body Mass Index - - documented in this encounter Progress Notes * Vera Capellan RN - 12/17/2024 5:04 PM EDT Current Concerns: Pt seen for ROSA Admitted to [facility] 12/09 - 12/14/24 for acute UTI, hx of severe sepsis - had stent change while hospitalized On PO cefdenir for 5 days s/p discharge and taking probiotic Also started on Tamsulosin Hgb A1c was 6.8 at hospital Pt wears Dexcom - average since home has been 210 - pt states this has been higher than her normal,feels it has been from stress Pt feels tired - states she didn't sleep well in the hospital Sees Dr. Bradley at [facility] for stent changes - to be every 3 months Still has caregiver Tuesday and Fridays for 3 hours each day Physical Exam: Physical Exam Constitutional: General: She is not in acute distress. Appearance: She is obese. Cardiovascular: Rate and Rhythm: Normal rate and regular rhythm. Pulses: Normal pulses. Heart sounds: Normal heart sounds. Pulmonary: Effort: Pulmonary effort is normal. Breath sounds: Normal breath sounds. Abdominal: Palpations: Abdomen is soft. Skin: General: Skin is warm and dry. Neurological: Mental Status: She is alert and oriented to person, place, and time. Review of Systems: Review of Systems Constitutional: Positive for fatigue. HENT: Negative. Eyes: Negative. Respiratory: Positive for shortness of breath (AVENDAÑO - at baseline). Cardiovascular: Negative. Gastrointestinal: Negative. Genitourinary: Negative. Musculoskeletal: Positive for arthralgias and gait problem. Skin: Negative. Psychiatric/Behavioral: Negative. Care Plan Goal Progress: Orders Placed: No orders of the defined types were placed in this encounter. Medications Given: Care Gaps: Care Gaps Care gaps closed this contact: Education;Medications;Plan of Care (POC) (12/17/24 1037) Type of medication care gap: Medication adherence (12/17/24 105) Type of plan of care (POC) care gap: Education and review of exacerbation plan (12/17/24 1657) documented in this encounter Plan of Treatment Upcoming Encounters Date Type Department Care Team (Late st Contact Info) Description 12/19/2024 1:30 PM EDT Office Visit Pulmonary Medicine, [facility] 132 [facility] [place] [address] Jhonny Holley MD [address] [facility] [place] [id number] 12/20/2024 11:00 AM EDT Pharmacy Family Practice 65 [facility] 293 [place] [address] College, Pharmacist [address] [place] [address] 12/20/2024 11:20 AM EDT Office Visit Family Practice [address] [place] [address] 293 [place] [address] Galdino Andujar, DO 293 [place] [address] 01/09/2025 9:00 AM EDT Office Visit Urogynecology [facility] 132 [facility] [place] [address] Al Meyers MD 132 [facility] [place] [address] 02/05/2025 1:00 PM EDT Office Visit Family Practice [address] [place] [address] 293 [place] [address] Galdino Andujar, DO 293 [place] [address] 02/14/2025 1:30 PM EDT Home Visit [facility] [address] [place] [address] Jarrett Mathis, RN [address] [place] [address] 06/13/2025 1:30 PM EDT Imaging Radiology [address] [place] [phone] 11/11/2025 1:15 PM EST Imaging Radiology [address] [place] [phone] Scheduled Procedures Name Priority Associated Diagnoses Date/Ti me COLONOSCOPY FLEXIBLE PROXIMAL DIAGNOSTIC Recall Colon cancer screening Health Maintenance Due Date Last Done Comments Cologuard 2000 Fecal Occult Blood Test 2000 Sigmoidoscopy 2000 CKD PHOS USE SMARTSET 78769 12/26/2024 04/0 10/2023, 02/11/2023, 01/07/2022, Additional history exists Adult Wellness Visit 02/13/2025 02/14/2024, 08/05/20 22 GFR 04/21/2025 10/22/2024, 08/27, 06/26/2024, Additional history exists HbA1c 04/21/2025 10/22/2024, 1009/2023, 03/26/2024, Additional history exists Mammogram 06/12/2025 06/12/2024, 05/27, 04/21/2023, Additional history exists Diabetic Eye Exam 07/06/2025 07/06/2024, , 07/06/2024, Additional history exists Albumin/Creatinine Ratio 10/22/2025 025, 08/05/2023, 11/01/2022, Additional history exists CKD HGB USE SMARTSET 61026 10/22/202510/22, 10/22/2024, 10/11/2024, Additional history exists Diabetic [...] on File Type Date Recorded Patient Concrete Swimming Pool Installer Expl anation POLST 03/19/2020 4:25 PM [...] (no specific identity) Health Care Power of Liquor Grinding Mill Operator Princesseugene Thrashery Other - (no specific identity) Health Care Power of Liquor Grinding Mill Operator Care Teams Bradley Linebacker Crewmember Relationship Specialty Start Date End Date Galdino Andujar DO [address] [place] [address], [place] [address] PCP - General Internal Medicine 03/08/24 documented as of this encounter
--- OUTSIDE RECORDS SUMMARY | 2025-01-23 23:57 | External Medical Summary | Summary of Care ---
Author Name Unknown Organization [facility] Address [address] [place] [address] Phone [phone] Care Team Providers Care Director Of Physician Practices Name Role Phone PratimaGaldino DO Primary Care Provider [phone] Reason for Visit * Reason Onset Date Comments [facility]: Maintenance 12/17/2024 Encounter Details Date Type Department Care Team (Late st Contact Info) Description 12/17/2024 Telephone [facility], [facility] [address] [address] Aniya Nassar RN [address] [place] [address] [facility]: Maintenance Allergies [...] Dexcom G7 Sensor Use as directed. (From [facility]) 06/01/20 Active OneTouch Verio In [...] EDT 11/07/19 25 Active Comfort EZ Pen [place] 31G X 8 MM (Insulin Pen Needle) [...] has rx for atorvastatin and plavix to sampler pickup at pharmacy. Type 2 diabetes mellitus wit [...] stable Heparin induced thrombocytopenia (HIT) Atherosclerosis of [place] co ronary artery without angina pectoris [...] 8:05 AM EDT): Home PT to start [place] filter in place 08/19/2014 History of pulmonary [...] rx evidently given by vascular, has to sampler pickup rx documented as of this encounter (statuses [...] (PFIZER-Comirnaty) 07/31/2024,07/26/2023 Pneumococcal Conjugate Vacci ne, 20-valent ([id number]) 03/12/2022 Pneumococcal Polysaccharide PPV23 (Pneumovax) 08/22/2009,06/15/2006 RSV [...] Gutierrez that patient has been D/C from [facility] on 12/[address] [facility] for status check Message also placed in teams chat to schedule TOCs documented in this encounter Plan of Treatment Upcoming Encounters Date Type Department Care Team (Late st Contact Info) Description 12/19/2024 1:30 PM EDT Office Visit Pulmonary Medicine, [facility] [address] [place] [address] Jhonny Holley MD [address] [place] [address] 12/20/2024 11:00 AM EDT Pharmacy Family Practice [address] [place] [address] 293 [place] [address] College, Pharmacist [address] [place] [address], [place] [address] 12/20/2024 11:20 AM EDT Office Visit Family Practice [address] [place] [address] 293 [place] [address] Galdino Andujar, 293 [place] [address] 01/09/2025 9:00 AM EDT Office Visit Urogynecology [facility] 132 [place] [address] Al Meyers MD 132 [place] [address] 02/05/2025 1:00 PM EDT Office Visit Family Practice 65 [facility] 293 [place] [address] Galdino Andujar, 293 [place] [address] 02/14/2025 1:30 PM EDT [facility], [place] [address] [place] [address] Jarrett Mathis, RN [address] [place] [address] 06/13/2025 1:30 PM EDT Imaging Radiology [address] 132 [place] [phone] 11/11/2025 1:15 PM EST Imaging Radiology [address] [place] [phone] Scheduled Procedures Name Priority Associated Diagnoses Date/Ti me COLONOSCOPY FLEXIBLE PROXIMAL DIAGNOSTIC Recall Colon cancer screening Health Maintenance Due Date Last Done Comments Cologuard 2000 Fecal Occult Blood Test 2000 Sigmoidoscopy 2000 CKD PHOS USE SMARTSET 96044 12/26/[address] 10/2023, 02/11/2023, 01/07/2022, Additional history exists Adult Wellness Visit 02/13/2025 02/14/2024, 08/05/20 22 GFR 04/21/2025 10/22/2024, 1211/2023, 06/26/2024, Additional history exists HbA1c 04/21/2025 10/22/2024, 09/2023, 03/26/2024, Additional history exists Mammogram 06/12/2025 06/12/2024, 05/27, 04/21/2023, Additional history exists Diabetic Eye Exam 07/06/2025 07/06/2024, , 07/06/2024, Additional history exists Albumin/Creatinine Ratio 10/22/2025 025, 08/05/2023, 11/01/2022, Additional history exists CKD HGB USE SMARTSET 41990 10/22/202510/22, 10/22/2024, 10/11/2024, Additional history exists Diabetic [...] Documents on File Type Date Recorded Patient Surveyor Helper Rod Expl anation POLST 03/19/2020 4:25 PM POLST [...] specific identity) Health Care Power of Home Economist Consumer Service Princess Other - (no specific identity) Health Care Power of Home Economist Consumer Service Care Teams Director Of Physician Practices Relationship Specialty Start Date End Date Galdino Andujar DO [address] [place] [address] PCP - General Internal Medicine 03/08/24 documented as of this encounter
--- OUTSIDE RECORDS SUMMARY | 2025-01-23 23:58 | External Medical Summary | Summary of Care ---
Author Name Unknown Organization [facility] Address [address] [place] [address] Phone [phone] Care Team Providers Care Pull Worker Name Role Phone PratimaGaldino DO Primary Care Provider [phone] Reason for Visit * Reason Onset Date Comments [facility]: Maintenance 12/17/2024 Encounter Details Date Type Department Care Team (Late st Contact Info) Description 12/17/2024 Telephone [facility], [facility] [address] [place] [address] Aniya Nassar RN [address] [place] [address] [facility]: Maintenance Allergies [...] goal of 7.0%-8.0% ([facility]) Inject 8 units with breakfast [...] goal of 7.0%-8.0% ([facility]) INJECT 38 UNITS UNDER THE SKIN IN THE EVENING 15 mL 5 5 3:25 PM EST 11/07/19 25 Active Clopidogrel Bisulfate 75 MG Oral Tablet (pLAVix) Take 1 Tablet by mouth in the morning. 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) Atherosclerosis of [place] co ronary artery without angina pectoris 12/31/2021 [...] 8:05 AM EDT): Home PT to start [place] filter in place 08/19/2014 History of pulmonary [...] 09/27/2018 05/14/2019 Mild episode of recurrent ma ajnae depressive disorder 08/26/2018 08/30/2022 Assessment & Plan [...] (PFIZER-Comirnaty) 07/31/2024,07/26/2023 Pneumococcal Conjugate Vacci ne, 20-valent ([id number]) 03/12/2022 Pneumococcal Polysaccharide PPV23 (Pneumovax) 08/22/2009,06/15/2006 RSV [...] Gutierrez that patient has been D/C from [facility] on 12/[address] [facility] for status check Message also placed in teams chat to schedule TOCs documented in this encounter Plan of Treatment Upcoming Encounters Date Type Department Care Team (Late st Contact Info) Description 12/17/2024 5:00 PM EDT Home Visit [facility], [facility] [address] [place] [address] Vera Capellan RN [address] [place] [address] 12/19/2024 1:30 PM EDT Office Visit Pulmonary Medicine, [facility] [address] [place] [address] Jhon[facility] MD [address] [facility] [address] 12/20/2024 11:00 AM EDT Pharmacy Family Practice 65 [facility] 293 [place] [address] College, Pharmacist [address] [place] [address] 12/20/2024 11:20 AM EDT Office Visit Family Practice 65 [facility] 293 [place] [address] Galdino Andujar, DO 293 [facility] [place] [address] 01/09/2025 9:00 AM EDT Office Visit Urogynecology [facility] 132 [place] [address] Al Meyers MD [address] [place] [address] 02/05/2025 1:00 PM EDT Office Visit Family Practice [address] [place] [address] [place] [address] Galdino Andujar DO [address] [place], [place] [address] 06/13/2025 1:30 PM EDT Imaging Radiology [address] [place] [address] 11/11/2025 1:15 PM EST Imaging Radiology [address] [place] [phone] Scheduled Procedures Name Priority Associated Diagnoses Date/Ti me COLONOSCOPY FLEXIBLE PROXIMAL DIAGNOSTIC Recall Colon cancer screening Health Maintenance Due Date Last Done Comments Cologuard 2000 Fecal Occult Blood Test 2000 Sigmoidoscopy 2000 CKD PHOS USE SMARTSET 18563 12/26/2024 04/0 10/2023, 02/11/2023, 01/07/2022, Additional history [...] Additional history exists CKD HGB USE SMARTSET 91410 10/22/202510/22, 10/22/2024, 10/11/2024, Additional history exists Diabetic [...] Documents on File Type Date Recorded Patient Project Director Expl anation POLST 03/19/2020 4:25 PM [...] (no specific identity) Health Care Power of Oven Baker Princess Thrashery Other - (no specific identity) Health Care Power of Oven Baker Care Teams Pull Worker Relationship Specialty Start Date End Date Galdino Andujar DO 293 [place] [address] PCP - General Internal Medicine 03/08/24 documented as of this encounter
--- OUTSIDE RECORDS SUMMARY | 2025-01-23 23:58 | External Medical Summary | Summary of Care ---
Author Name Unknown Organization [facility] Address [address] [place] [address] Phone [phone] Care Team Providers Care Clip On Sunglasses Inspector Name Role Phone Lexii Andujar DO Primary Care Provider [phone] Reason for Visit * Reason Comments Medication Refill Encounter Details Date Type Department Care Team (Late st Contact Info) Description 12/01/2024 Refill Pharmacy, [facility] [address] [facility] [place] [address] Lexii Andujar DO [address] [place] [address] Spinal stenosis of lumbar region without neurogenic [...] as of this encounter (statuses as of 12/11/2024) Medications ONETOUCH DELICA LANCBETTY 33G [facility] Check blood sugars 3-4 times [...] Sensor Use as directed. (From [facility]) 06/01/20 Active OneTouch Verio In Vitro Strip (Glucose Blood)Indications: Hypoglycemia,Type 2 diabetes mellitus with stage 3b chronic kidney disease, with long-term current use of insulin (HCC) Use up to 4 times a day in case of dexcom failure 100 Strip 11 5 2:23 PM EDT 02/02/20 24 Active Mounjaro 7.5 MG/0.5ML Subcutaneous Solution Auto-injector (Tirzepatide)Indic ations:Type 2 diabetes mellitus with stage 3b chronic kidney disease, with long-term current use of insulin ([facility]) Inject 7.5 mg under the skin once [...] of 7.0%-8.0% ([facility]) Take 1 Tablet by mouth in the [...] 1 Capsule before bedtime. 60 Capsule 5 5 11:11 AM EDT 11/07/19 [...] 1 and CKD stage 3 ([facility]),Chronic diastolic congestive heart failure (HCC) Take 1 Tablet by mouth in the morning and 1 Tablet before bedtime. 56 Tablet 11 11/07/19 25 Active NovoLOG FlexPen 100 UNIT/ML Subcutaneous Solution Pen-injector (insulin aspart)Indications :Type 2 diabetes mellitus with hemoglobin A1c goal of 7.0%-8.0% ([facility]) Inject 8 units with breakfast and 6 [...] 1 and CKD stage 3 ([facility]),Chronic diastolic congestive heart failure (HCC) Take 1 [...] A1c goal of 7.0%-8.0% ([facility]) INJECT 38 UNITS UNDER THE SKIN IN THE EVENING 15 mL 5 5 3:25 PM EST 11/07/19 25 Active Clopidogrel Bisulfate 75 MG Oral Tablet (pLAVix) Take 1 Tablet by mouth in the morning. 28 Tablet 11 5 11:11 AM EDT 11/07/19 25 Active Comfort EZ Pen Douglas 31G X 8 MM (Insulin Pen Needle) use five times daily 500 Each 2 5 11:42 AM EST 11/16/19 25 Active Ciprofloxacin HCl 250 MG Oral Tablet (Cipro)Indications :Acute cystitis without hematuria Take 1 Tablet by mouth in the morning and 1 Tablet before bedtime. Hold Tizanidine while taking Cipro. 10 Tablet 5 4:27 PM EST 11/28/19 25 Active tiZANidine HCl 4 MG Oral Tablet (Zanaflex)Indicati ons:Spinal stenosis of lumbar region without neurogenic claudication Take 1 Tablet by mouth every 6 hours as needed for Muscle spasms. 60 Tablet 5 2:23 PM EDT 12/07/19 25 Active tiZANidine HCl 4 MG Oral Tablet (Zanaflex)Indicati ons:Spinal stenosis of lumbar region without neurogenic claudication Take 1 Tablet by mouth every 6 hours as needed for Muscle spasms. 60 Tablet 5 12:53 PM EST 11/07/19 25 025 Discontin ued(Refil [...] as of this encounter (statuses as of 12/11/2024) Active Problems Problem Noted Date Diagnosed Date [...] has rx for atorvastatin and plavix to picker/puller at pharmacy. Type 2 diabetes mellitus wit [...] induced thrombocytopenia (HIT) 2 Atherosclerosis of [place] co ronary artery without angina pectoris 12/31/2021 [...] 8:05 AM EDT): Home PT to start Kennard filter in place 08/19/2014 History of pulmonary [...] rx evidently given by vascular, has to picker/puller rx documented as of this encounter (statuses as of 12/11/2024) Resolved Problems Problem Noted Date Diagnosed Date [...] as of this encounter (statuses as of 12/11/2024) Immunizations Name Administration Dates Next Due COVID-19 mRNA, LNP-s, No Pre serve, 2-Dose Series ([id number]) 01/08/2021,12/18/2020 COVID-19, LNP-s, No Preserve , Navarro-sucrose, Ages 12+ (Pfizer) 2022,10/01/2021 COVID-19, MRNA-LNP, PF, 30 M CG/0.3 mL, 12 YRS AND ABOVE, IM (PFIZER-Comirnaty) 07/31/2024,07/26/2023 Pneumococcal Conjugate Vacci ne, 20-valent ([id number]) 03/12/2022 Pneumococcal Polysaccharide PPV23 (Pneumovax) 08/22/2009,06/15/2006 RSV [...] Hd (Fluzone Hd) 06/21/2023,06/18/2022,07/20/2021 Seasonal Influenza, Quadriva erikat, No Preserve, IM 06/24/2016,07/24/2015 Varicella Zoster Vaccine [...] Notes * Telephone Encounter - Ana Ramírez RP - 12/11/2024 11:26 AM EDT Signed Prescriptions: Disp Refills tiZANidine HCl 4 MG Oral Tablet (Zanaflex) 60 Tab*0 Sig: Take 1 Tablet by mouth every 6 hours as needed for Muscle spasms. Authorizing Provider: LEXII ANDUJAR * Telephone Encounter - Lexii Andujar DO - 12/06/2024 12:35 PM EDT I have reviewed the patient’s controlled substance dispensing history in the Prescription Drug Monitoring Program in compliance with the [facility] regulations before prescribing a controlled substance. [...] be found in Results Review. Clonazepam due 12/12/2024 * Telephone Encounter - Ana Ramírez, [facility] - 12/01/2024 11:30 AM EST Pending Prescriptions: Disp Refills tiZANidine HCl 4 [...] for Pain, Severe. * Telephone Encounter - Ana Ramírez [facility] - 12/01/2024 11:30 AM EST Pending Prescriptions: Disp Refills tiZANidine HCl 4 MG Oral Tablet (Zanaflex) 60 Tab*0 Sig: Take 1Tablet by mouth every 6 hours as needed for Muscle spasms. clonazePAM 0.5 MG Oral Tablet (KlonoPIN)84 Tab*0 Sig: Take 1 Tablet by mouth in the morning and 1 Tablet at noon and 1 Tablet before bedtime . documented in this encounter Plan of Treatment Upcoming Encounters Date Type Department Care Team (Late st Contact Info) Description 12/19/2024 1:30 PM EDT Office Visit Pulmonary Medicine, [facility] [address] [facility] [place] [address] Jhon[facility] Hol[facility] [address] [facility] [address] 12/20/2024 11:20 AM EDT Office Visit Family Practice [address] [place] [address] 293 [facility], [place] [phone] Lexii Andujar DO 293 [facility], [place] [address] 01/09/2025 9:00 AM EDT Office Visit Urogynecology [facility] 132 [facility] [place] [address] Al Meyers MD [address] [place] [address] 02/05/2025 1:00 PM EDT Office Visit Family Practice [address], [place] [address] [place] [address] Lexii Andujar, [address] [place] [address] 06/13/2025 1:30 PM EDT Imaging Radiology [address] [place] [phone] 11/11/2025 1:15 PM EST Imaging Radiology [address] [place] [phone] Scheduled Procedures Name Priority Associated Diagnoses Date/Ti me COLONOSCOPY FLEXIBLE PROXIMAL DIAGNOSTIC Recall Colon cancer screening Health Maintenance Due Date Last Done Comments Cologuard 2000 Fecal Occult Blood Test 2000 Sigmoidoscopy 2000 CKD PHOS USE SMARTSET 40650 12/26/202410/2023, 02/11/2023, 01/07/2022, Additional history exists Adult Wellness Visit 02/13/2025 02/14/2024, 08/05/20 22 GFR 04/21/2025 10/22/2024, 08/27, 06/26/2024, Additional history exists HbA1c 04/21/2025 10/22/2024, 09/2023, 03/26/2024, Additional history exists Mammogram 06/12/2025 06/12/2024, 05/27, 04/21/2023, Additional history exists Diabetic Eye Exam 07/06/2025 07/06/2024, , 07/06/2024, Additional history exists Albumin/Creatinine Ratio 10/22/2025 025, 08/05/2023, 11/01/2022, Additional history exists CKD HGB USE SMARTSET 54748 10/22/202510/22, 10/22/2024, 10/11/2024, Additional history exists Depression [...] counseling ILD (interstitial lung disease) ([facility])- Primary Postinflammatory pulmonary fibrosis Fibromyalgia Mylagia and myositis, unspecified Moderate episode of recurrent major depressive disorder (HCC) Primary osteoarthritis of both knees Primary localized osteoarthrosis, lower leg Chronic hypoxemic respiratory failure (HCC) Chronic respiratory failure 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 3b chronic kidney disease ([facility]) Advanced care planning/counseling discussion- Primary Other specified counseling Atherosclerosis of [place] coronary artery of [place] heart without angina pectoris Carotid artery stenosis, asymptomatic, right Essential hypertension with goal blood pressure less than 140/[address] Other postprocedural status Hypertensive [...] discussion- Primary Other specified counseling Atherosclerosis of [place] coronary artery of [place] heart without angina pectoris Kennard filter in place Other postprocedural status Hypertensive [...] on File Type Date Recorded Patient Supervisor Pastry Expl anation POLST 03/19/2020 4:25 PM POLST [...] (no specific identity) Health Care Power of Back Tender Paper Machine Princess Allen Other - (no specific identity) Health Care Power of Back Tender Paper Machine Care Teams Clip On Sunglasses Inspector Relationship Specialty Start Date End Date Lexii Andujar DO [address] [place] [address] PCP - General Internal Medicine 03/08/24 documented as of this encounter
--- OUTSIDE RECORDS SUMMARY | 2025-01-23 23:58 | External Medical Summary | Summary of Care ---
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 (From [facility]) 06/01/20 Active OneTouch Verio In Vitro [...] [facility] [place]) Take 1 Tablet by mouth in the [...] EDT 11/07/19 25 Active Comfort EZ Pen [place] 31G X 8 MM (Insulin Pen Needle) [...] (interstitial lung disease) ([facility]),Chronic respiratory failure with hypoxia ([facility]) 2.5 mg NEBULIZER PRN 10/11/2024 10/11/2025 Active Albuterol Sulfate (Proventil) (5 MG/ML) 0.5% *conc* inhalation solution 2.5 mgIndications:ILD (interstitial lung disease) (HCC),Chronic respiratory failure with hypoxia (HCC) 2.5 mg NEBULIZER PRN 10/11/2024 10/11/2025 Active documented as of this encounter (statuses as of 12/13/2024) Active Problems Problem Noted Date Diagnosed Date [...] 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 Atherosclerosis of false pass co ronary artery without angina pectoris 12/31/2021 [...] 8:05 AM EDT): Home PT to start Callao filter in place 08/19/2014 History of pulmonary [...] as of this encounter (statuses as of 12/13/2024) Resolved Problems Problem Noted Date Diagnosed Date [...] as of this encounter (statuses as of 12/13/2024) Immunizations Name Administration Dates Next Due COVID-19 mRNA, LNP-s, No Pre serve, 2-Dose Series (Librato) 01/08/2021,12/18/2020 COVID-19, LNP-s, No Preserve , Navarro-sucrose, Ages 12+ (Pfizer) 2022,10/01/2021 COVID-19, MRNA-LNP, PF, 30 M CG/0.3 mL, 12 YRS AND ABOVE, IM ([facility]) 07/31/2024,07/26/2023 Pneumococcal Conjugate Vacci ne, 20-valent ([id number]) 03/12/2022 Pneumococcal Polysaccharide PPV23 (Pneumovax) 08/22/2009,06/15/2006 RSV [...] as of this encounter Progress Notes * 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 TMR Interventions TMR Drug Therapy - Naloxone (Opioid Therapy): CLONAZEPAM TAB 0.5MG;TRAMADOL HCL TAB 50MG Incomplete Encounter MTPs No medication therapy recommendations to display Complete Encounter MTPs Referred for medication therapy management 1 Rationale: Untreated condition - Needs additional medication therapy - Indication Recommendation: Provide Education Status: Accepted per CPA Identified Date: 12/12/2024 Completed Date: 12/12/2024 Note: TMR for naloxone. Educated during CMR. Assessment & Plan Indication, effectiveness, safety and convenience of her medications were reviewed today. The patient's medical conditions were assessed, evaluated, and deemed meeting goals of drug therapy, with thefollowing exceptions. CHALO Blum Tech 12/12/2024, 9:01 PM documented in this encounter Plan of Treatment Upcoming Encounters Date Type Department Care Team (Late st Contact Info) Description 12/19/2024 1:30 PM EDT Office Visit Pulmonary Medicine, [facility] [address] [facility] [place] [address] Jhonny Holley MD [address] [facility] [place] [address] 12/20/2024 11:20 AM EDT Office Visit Family Practice [address] [place] [address] 293 [facility] [place] [address] Galdino Andujar DO 293 [facility], [place] [address] 01/09/2025 9:00 AM EDT Office Visit Urogynecology [facility] [address] [place] [address] Al Meyers MD [address] [place] [address] 02/05/2025 1:00 PM EDT Office Visit Family Practice [address], [place] 293 [facility] [place] [address] Galdino Andujar, 293 [place] [address] 06/13/2025 1:30 PM EDT Imaging Radiology [address] [place] [phone] 11/11/2025 1:15 PM EST Imaging Radiology [address] [facility] [place] [phone] Scheduled Procedures Name Priority Associated Diagnoses Date/Ti me COLONOSCOPY FLEXIBLE PROXIMAL DIAGNOSTIC Recall Colon cancer screening Health Maintenance Due Date Last Done Comments Cologuard 2000 Fecal Occult Blood Test 2000 Sigmoidoscopy 2000 CKD PHOS USE SMARTSET 13484 12/26/20240 10/2023, 02/11/2023, 01/07/2022, Additional history exists Adult Wellness Visit 02/13/2025 02/14/2024, 08/05/20 22 GFR 04/21/2025 10/22/2024, 12/2 11/2023, 06/26/2024, Additional history exists HbA1c 04/21/2025 10/22/2024, 09/2023, 03/26/2024, Additional history exists Mammogram 06/12/2025 06/12/2024, 05/27, 04/21/2023, Additional history exists Diabetic Eye Exam 07/06/2025 07/06/2024, , 07/06/2024, Additional history exists Albumin/Creatinine Ratio 10/22/2025 025, 08/05/2023, 11/01/2022, Additional history exists CKD HGB USE SMARTSET 72465 10/22/202510/22, 10/22/2024, 10/11/2024, Additional history exists Depression [...] insulin ([facility]) Restless legs syndrome Restless legs syndrome (RLS) ELLIE (generalized anxiety disorder) Generalized anxiety disorder Mild episode of recurrent major depressive disorder ([facility]) Advanced care planning/counseling discussion Other specified counseling ILD (interstitial lung disease) ([facility])- Primary Postinflammatory pulmonary fibrosis Fibromyalgia Mylagia and myositis, unspecified Moderate episode of recurrent major depressive disorder ([facility]) Primary osteoarthritis of both knees Primary localized osteoarthrosis, lower leg Chronic hypoxemic respiratory failure (HCC) Chronic respiratory failure 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 3b chronic kidney disease ([facility]) Advanced care planning/counseling discussion- Primary Other specified counseling Atherosclerosis of false pass coronary artery of false pass heart without angina pectoris Carotid artery stenosis, asymptomatic, right Essential hypertension with goal blood pressure less than 140/[address] Other postprocedural status 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 3b chronic kidney disease ([facility]) Recurrent deep vein thrombosis (DVT) of both lower extremities (HCC) Chronic hypoxemic respiratory failure (HCC) Chronic respiratory failure ELISSA (obstructive sleep apnea) Obstructive sleep apnea (adult) (pediatric) Type 2 diabetes mellitus with hemoglobin A1c goal of less than 8.0% ([facility]) Fibromyalgia Mylagia and myositis, unspecified Restless legs syndrome Restless legs syndrome (RLS) Chronic kidney disease, stage 3b (HCC) History of pulmonary embolus (PE) Personal history of pulmonary embolism Moderate episode of recurrent major depressive disorder (HCC) Advanced care planning/counseling discussion- Primary Other specified counseling Atherosclerosis of false pass coronary artery of false pass heart without angina pectoris Frank filter in [...] current use of insulin (HCC) Referred for medication therapy management- Primary Encounter for long-term (current) use of other medications Screening mammogram for breast cancer documented in this encounter Advance Directives Documents on File Type Date Recorded 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
[2025-01-24] MEDS: ACETAMINOPHEN 1,000 MG/100 ML VIAL IV STA ×3 (01:56→23:19)
[2025-01-24] MEDS: DICYCLOMINE HCL 20 MG TAB PO PRN (02:12)
[2025-01-24] MEDS: LEVOTHYROXINE SODIUM 200 MCG TABLET PO SCH (05:45)
[2025-01-24 06:25] LABS: Basophils # (auto) 0.04 K/uL (0.00-0.20); Basophils % (auto) 0.3 %; Eosinophils # (auto) 0.38 K/uL (0.00-0.50); Eosinophils % (auto) 2.9 %; Hemoglobin 12.1 g/dl (12.0-16.0); Immature Granulocytes # (auto) 0.07 K/uL (0.01-0.20); Immature Granulocytes % (auto) 0.5 %; Lymphocytes # (auto) 2.13 K/uL (1.20-3.40); Lymphocytes % (auto) 16.1 %; Mean Corpuscular Hemoglobin 29.9 pg (25.0-34.0); Mean Corpuscular Hgb Conc 32.7 g/dL (32.0-36.0); Mean Corpuscular Volume 91.4 fL (80.0-100.0); Mean Platelet Volume 9.7 fL (9.4-12.4); Monocytes # (auto) 1.09 K/uL (0.11-0.59); Monocytes % (auto) 8.2 %; Neutrophils # (auto) 9.53 K/uL (1.40-6.50); Platelet Count 283 K/uL (130-400); RDW Coefficient of Variation 13.7 % (11.5-14.5); RDW Standard Deviation 46.6 fL (36.4-46.3); Red Blood Count 4.05 M/uL (4.20-5.40); White Blood Count 13.24 K/ul (4.8-10.8)
[2025-01-24 06:51] LABS: BUN Creatinine Ratio 17.9 (10-20); Calcium 9.2 mg/dl (8.6-10.3); Creatinine Clr Calc Pharmacy 37.5 ml/min; Potassium 3.6 mmol/L (3.5-5.1)
[2025-01-24] MEDS: ACETAMINOPHEN 325 MG TAB PO PRN (08:54)
[2025-01-24] MEDS: FUROSEMIDE 40 MG TAB PO SCH (08:55)
[2025-01-24] MEDS: ROSUVASTATIN CALCIUM 5 MG TAB PO SCH (08:55)
[2025-01-24] MEDS: CLOPIDOGREL BISULFATE 75 MG TAB PO SCH (08:55)
[2025-01-24] MEDS: CHOLECALCIFEROL 25 MCG (1000 UNITS) TAB PO SCH (08:55)
[2025-01-24] MEDS: DULoxetine HCL 60 MG CAP PO SCH (08:55)
[2025-01-24] MEDS: ASPIRIN 81 MG ECTAB PO SCH (08:55)
[2025-01-24] MEDS: PANTOprazole 40 MG TAB PO SCH (08:56)
--- NOTE | 2025-01-24 09:59 | Electrocardiogram Report ---
Test Reason : Blood Pressure : */* mmHG Vent. Rate : 86 BPM Atrial Rate : 88 BPM P-R Int : * ms QRS Dur : 76 ms QT Int : 358 ms P-R-T Axes : * 10 46 degrees QTcB Int : 428 ms Sinus rhythm with A-V dissociation and Accelerated Junctional rhythm Abnormal ECG When compared with ECG of 16-Jan-2024 05:13, Junctional rhythm has replaced Sinus rhythm Confirmed by Kedar Gilbert ([id number]) on 01/24/2025 9:59:23 AM Referred By: REFERRED SELF Confirmed By: Kedar Gilbert
--- NOTE | 2025-01-24 11:28 | XRay Report ---
XR chest 1V portable CLINICAL HISTORY: rigors COMPARISON STUDY: 01/16/2024 and 01/17/2024 FINDINGS: No significant interval changes have occurred. The patient continues to have widespread ret icular nodular densities consistent with pulmonary fibrosis. There is no focal air space opacity iden tified. There is no pleural effusion or atelectasis. There is no pneumothorax. IMPRESSION: Stable exam; no acute process identified. ACT 112: Negative or not required by law. Electronically signed by: Vera Barajas M.D. 01/24/2025 11:26 AM
[2025-01-24 11:29] LABS: Appearance Urine Turbid (Clear); Bacteria Urine Automated 4+ (None Seen); Bilirubin Urine Negative (Negative); Blood Urine 3+ (Negative); Color Urine Orange; Epithelial Cell Urine Auto 0-2 /hpf (0-2); Glucose Urine UA Negative (Negative); Ketones Urine Negative (Negative); Leukocyte Esterase Urine 3+ (Negative); Nitrite Urine Positive (Negative); Protein Urine 1+ (Negative); RBC Urine Automated >20 /hpf (0-2); Specific Gravity Urine 1.012 (1.000-1.030); Urobilinogen Urine Negative (Negative); WBC Urine Automated >50 /hpf (0-5); pH Urine 7.5 (4.5-7.5)
[2025-01-24] MEDS: HYDROmorphone INJ 0.5 MG/0.5 ML SYR IV STA (11:29)
[2025-01-24 12:19] LABS: Hematocrit (blood only) 41.8 % (37.0-47.0); Hemoglobin 13.2 g/dl (12.0-16.0); Mean Corpuscular Hemoglobin 29.6 pg (25.0-34.0); Mean Corpuscular Hgb Conc 31.6 g/dL (32.0-36.0); Mean Corpuscular Volume 93.7 fL (80.0-100.0); Mean Platelet Volume 9.6 fL (9.4-12.4); Platelet Count 272 K/uL (130-400); RDW Coefficient of Variation 13.9 % (11.5-14.5); RDW Standard Deviation 47.3 fL (36.4-46.3); Red Blood Count 4.46 M/uL (4.20-5.40); White Blood Count 9.79 K/ul (4.8-10.8)
[2025-01-24 12:39] LABS: BUN Creatinine Ratio 17.3 (10-20); Bilirubin,Total 0.7 mg/dl (0.2-1.0); Calcium 9.6 mg/dl (8.6-10.3); Creatinine Clr Calc Pharmacy 36.2 ml/min; Globulin 3.9 gm/dl (2.5-4.0); Magnesium 1.8 mg/dl (1.7-2.4); Phosphorus 3.2 mg/dl (2.5-4.9); Potassium 4.2 mmol/L (3.5-5.1); Total Protein 7.9 gm/dl (6.0-8.3)
[2025-01-24] MEDS: PIPERACILLIN/TAZOBACTAM 4.5 GM/100 ML BAG IV ONE (12:53)
--- NOTE | 2025-01-24 12:54 | CT Scan Report ---
CT OF THE ABDOMEN AND PELVIS WITHOUT CONTRAST CLINICAL HISTORY: Sudden severe abdominal pain. COMPARISON STUDY: CT of the abdomen and pelvis December 09, 2024. TECHNIQUE: Axial images of the abdomen and pelvis were obtained without IV contrast. Images were revi ewed in the axial, sagittal, and coronal planes. Automated exposure control was utilized for the kiesha dy. A dose lowering technique was utilized adhering to the principles of ALARA. FINDINGS: Interlobular septal thickening with mild groundglass opacities and mosaic attenuation are n oted within the visualized lung bases. No pneumatosis, free air or portal venous gas is present. Righ t ureteral stent is in place. Moderate to severe right hydronephrosis with normal caliber ureter is u nchanged. There are no urinary calculi. There is mild right perinephric stranding and fluid. There is no left hydronephrosis. Dilation of the remainder of the abdomen and pelvis is suboptimal on this un enhanced exam. There is no biliary ductal dilatation status post cholecystectomy. Unenhanced images o f the liver, spleen, adrenal glands and pancreas are unremarkable. As before, a portion of the transv erse colon extends into a ventral hernia. There is no resultant bowel obstruction. No bowel wall thic kening is identified on unenhanced exam. The appendix is normal. IVC filter is in place. There is no lymphadenopathy. There are no fluid collections. No acute fractures are identified within the visuali zed skeletal structures. IMPRESSION: 1. No change in moderate to severe right hydroureteronephrosis. Right ureteral stent in place. No uri nary calculi. 2. Mild right perinephric stranding and a small amount of fluid, a nonspecific finding. This could be correlated with urinalysis. 3. No bowel obstruction. Normal appendix. No bowel wall thickening on unenhanced exam. ACT 112: Negative or not required by law. Electronically signed by: David Lugo M.D. 01/24/2025 12:53 PM
[2025-01-24 12:56] LABS: Basophils # (auto) 0.02 K/uL (0.00-0.20); Basophils % (auto) 0.2 %; Eosinophils # (auto) 0.13 K/uL (0.00-0.50); Eosinophils % (auto) 1.3 %; Immature Granulocytes # (auto) 0.06 K/uL (0.01-0.20); Immature Granulocytes % (auto) 0.6 %; Lymphocytes # (auto) 0.49 K/uL (1.20-3.40); Monocytes # (auto) 0.05 K/uL (0.11-0.59); Monocytes % (auto) 0.5 %; Neutrophils # (auto) 9.04 K/uL (1.40-6.50); Neutrophils % (auto) 92.4 %
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
[2025-01-24] MEDS: PIPERACILLIN/TAZOBACTAM 4.5 GM/100 ML BAG IV SCH (17:41)
[2025-01-24] MEDS: traMADol HCL 50 MG TABLET PO PRN (20:44)
--- NOTE | 2025-01-24 23:02 | Communication Note ---
Date of Service: January 24, 2025 Overnight developments 01/24, 11 PM Patient noted to be lethargic and febrile as per RN. Denies headache, diarrhea symptoms. Patient received Klonopin, gabapentin, Requip, trazodone, tramadol around 8:45 PM. AP Encephalopathy Multifactorial Fever, complicated UTI, ongoing Zosyn Rx ARF on CKD Home narcotics/multiple neuropsychotropic medications contributory Narcan [address] head if without improvement given Eliquis Rx Add daptomycin to Zosyn, history of VRE as per records Monitor creatinine response to IVF, hold Lasix for now Hold parameters for sedation/confusion for narcotics and multiple neuropsychotropic medications. 5/2, 130 AM SBP 70s as per RN WBC 21 Serum crea 2.5 from 1.9 yesterday Lactic acid normal limits AP Severe sepsis Complicated UTI, obstructive uropathy Continue antibiotic Rx and IVF Urology consult re: obstructive uropathy, kidney dysfunction, sepsis, complicat ed UTI N.p.o. in anticipation of procedure.
[2025-01-24] MEDS: NALOXONE HCL 0.4 MG/1 ML VIAL/CARP IV STA (23:17)
[2025-01-24] MEDS: SODIUM CHLORIDE 0.9% 1,000 ML IV ONE (23:19)
[2025-01-24] MEDS: DAPTOmycin 850 MG in SYRINGE 0 ML IV SCH (23:53)
[2025-01-25] MEDS: SODIUM CHLORIDE 0.9% 500 ML IV ONE ×2 (01:45→07:47)
[2025-01-25 02:00] LABS: Base Excess VBG 4.3 mEq/L; HCO3 VBG 27 mmol/L; Oxygen Saturation VBG 95.1 %; PCO2 VBG 34 mmHg (38-50); PO2 VBG 62 mmHg; pH VBG 7.51 (7.36-7.41)
[2025-01-25 02:24] LABS: Calcium 8.7 mg/dl (8.6-10.3); Magnesium 1.6 mg/dl (1.7-2.4)
[2025-01-25 02:26] LABS: Hematocrit (blood only) 35.9 % (37.0-47.0); Hemoglobin 11.6 g/dl (12.0-16.0); Mean Corpuscular Hemoglobin 29.9 pg (25.0-34.0); Mean Corpuscular Hgb Conc 32.3 g/dL (32.0-36.0); Mean Corpuscular Volume 92.5 fL (80.0-100.0); Platelet Count 229 K/uL (130-400); RDW Coefficient of Variation 14.2 % (11.5-14.5); RDW Standard Deviation 47.8 fL (36.4-46.3); Red Blood Count 3.88 M/uL (4.20-5.40); White Blood Count 21.37 K/ul (4.8-10.8)
[2025-01-25 02:44] LABS: BUN Creatinine Ratio 15.6 (10-20); Creatinine Clr Calc Pharmacy 28.5 ml/min; Phosphorus 1.7 mg/dl (2.5-4.9)
[2025-01-25 03:01] LABS: Basophils # (auto) 0.08 K/uL (0.00-0.20); Basophils % (auto) 0.4 %; Echinocytes 1+; Eosinophils # (auto) 0.01 K/uL (0.00-0.50); Immature Granulocytes # (auto) 0.14 K/uL (0.01-0.20); Immature Granulocytes % (auto) 0.7 %; Lymphocytes # (auto) 0.46 K/uL (1.20-3.40); Lymphocytes % (auto) 2.2 %; Monocytes # (auto) 0.98 K/uL (0.11-0.59); Monocytes % (auto) 4.6 %; Neutrophils % (auto) 92.1 %; Polychromasia 1+
[2025-01-25] MEDS ORDERED: POTASSIUM PHOS 3 MMOL/1 ML INFUSION IV STA (03:14)
[2025-01-25] MEDS: POTASSIUM PHOSPHATE 40 MMOL in SODIUM CHLORIDE 0.9% 1,000 ML IV ONE (03:44)
[2025-01-25] MEDS: MAGNESIUM SULFATE / D5W 1 GM/100 ML BAG IV ONE (03:50)
[2025-01-25] MEDS ORDERED: Nursing to Pharmacy Communication SCH ×2 (04:15→11:30)
[2025-01-25] MEDS: ACETAMINOPHEN 1,000 MG/100 ML VIAL IV SCH (05:39)
[2025-01-25] MEDS: INSULIN ASPART PER UNIT CHARGE SC SCH ×2 (06:04→11:51)
[2025-01-25] MEDS: GABAPENTIN 300 MG CAP PO SCH (09:18)
[2025-01-25] MEDS: SODIUM CHLORIDE 0.9% 1,000 ML IV SCH (11:23)
--- NOTE | 2025-01-25 12:19 | Urology Consultation ---
<Statement entered by Al Arriaga MD - 01/25/25 14:02> 69-year-old female with chronic right stent, thought to be due to right UPJ obstruction. Although she initially presented to the hospital because of oxygen requirement, she subsequently developed concern for infection. Her right ureteral stent has been in place just over a month, which would be a fairly short amount of time for it to become encrusted/obstructed. Agree with antibiotics and narrowing coverage as culture data becomes available. Urology will hold off surgical intervention for now, however if she is not clinically improving with conservative management, we could consider exchanging her stent. If this is needed, there may be a role for switching her to a nephrostomy tube as this could provide more definitive drainage and use a larger bore catheter that may not require exchanging as often. Will make her n.p.o. at midnight for reassessment in the morning. 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 She was admitted to medicine service due to chronic hypoxic respiratory failure and also being treated for complicated UTI. On 01/24/25 she developed fever and lethargy. Repeat UA was suggestive of infection. CT abd pelvis imaging showing stable appearing moderate to severe right-sided hydronephrosis with a right ureteral stent in position. Afebrile, normotensive, mildly tachycardic at present (Tmax 38.7C on 01/24) Labs showing WBCs 21.37 and creatinine up to 2.5 today from 1.9 yesterday Urine and blood cultures pending Voiding spontaneously, has external cath in place. Right sided hydronephrosis appears stable and the right ureteral stent is in appropriate position. Her stent was last exchanged approximately 1.5 months ago on 12/13/2024 No plan for surgical intervention/stent exchange at this time. Would recommend continuing with supportive care and antibiotic therapy. If her stent is failing/becoming encrusted within a month of stent placement, may need to consider nephrostomy tube placement. Would recommend checking bladder scan/PVRs to ensure she is emptying. Will make NPO at midnight for reassessment in the morning. Urology will follow, please call with any questions/concerns or changes in patient's status. 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 She was admitted to medicine service due to chronic hypoxic respiratory failure and also being treated for complicated UTI. On 01/24/25 she developed fevers and was noted to be lethargic. UA on admission was negative but a repeat UA on 01/24 was suggestive of [address]. CT abd pelvis demonstrated no change in moderate to severe right-sided hydronephrosis with a right ureteral stent in position and no urinary calculi, mild right perinephric stranding with a small amount of fluid also noted. Urine and blood cultures pending. She is on Zosyn and Daptomycin. Patient was seen at bedside today. She is awake and resting in bed on arrival. Nurse at bedside. No acute distress. Reports chills and some bladder disco mfort. External purewick cath in place. Afebrile at present. Allergies Allergy/AdvReac Type Severity Reaction Status Date / Time morphine Allergy Severe Swelling, Verified 01/23/25 19:13 "Violent reaction- almost " dapagliflozin [From Farxiga] Allergy Intermediate Yeast Verified 01/23/25 19:13 infections tetanus toxoid, adsorbed Allergy Intermediate Passed Verified 01/23/25 19:13 out, "got sick" as child bupropion [From Wellbutrin] AdvReac Intermediate Recurrent Verified 01/23/25 19:13 falls as per patient codeine AdvReac Intermediate Hallucinati Verified 01/23/25 19:13 ons empagliflozin AdvReac Intermediate Yeast Verified 01/23/25 19:13 [From Jardiance] infections heparin AdvReac Intermediate HIT, Verified 01/23/25 19:13 "Fluid in lungs" hydrocodone [From Vicodin] AdvReac Intermediate Drowsy Verified 01/23/25 19:13 Home Medications Medication Instructions Recorded Confirmed Type aspirin 81 mg tablet,delayed 81 mg PO QAM 09/20/23 01/23/25 History release clonazepam 0.5 mg tablet 0.5 mg PO TID 09/20/23 01/23/25 History furosemide 40 mg tablet 60 mg PO BID 09/20/23 01/23/25 History magnesium oxide 400 mg (241.3 mg 400 mg PO BID 09/20/23 01/23/25 History magnesium) tablet omeprazole 20 mg capsule,delayed 20 mg PO QAM 09/20/23 01/23/25 History release potassium chloride 20 mEq 20 meq PO BID 09/20/23 01/23/25 History tablet,extended release(part/cryst) ropinirole 2 mg tablet 2 mg PO HS 09/20/23 01/23/25 History sennosides 8.6 mg-docusate sodium 1 tab PO BID 09/20/23 01/23/25 History 50 mg tablet (Senna-Time S) tramadol 50 mg tablet 50 mg PO Q8 PRN Pain 09/20/23 01/23/25 History apixaban 2.5 mg tablet (Eliquis) 2.5 mg PO BID 10/24/23 01/23/25 History dicyclomine 20 mg tablet 20 mg PO QID PRN abdominal cramping 10/24/23 01/23/25 History levothyroxine 200 mcg tablet 200 mcg PO DAILYBB #30 tabs 12/07/23 01/23/25 Rx cholecalciferol (vitamin D3) 25 25 mcg PO QAM 01/16/24 01/23/25 History mcg (1,000 unit) tablet clopidogrel 75 mg tablet 75 mg PO QAM 01/16/24 01/23/25 History duloxetine 60 mg capsule,delayed 60 mg PO QAM 12/09/24 01/23/25 History release fluticasone propionate 50 2 spray intranasal AMHS 12/09/24 01/23/25 History mcg/actuation nasal spray,suspension gabapentin 300 mg capsule 300 mg PO AMHS 12/09/24 01/23/25 History insulin aspart U-100 100 unit/mL See Rx Instructions .Route .COMPLEX 12/09/24 01/23/25 History (3 mL) subcutaneous pen (Novolog FlexPen U-100 Insulin aspart) insulin degludec 100 unit/mL (3 41 unit subcut QPM 12/09/24 01/23/25 History mL) subcutaneous pen (Tresiba FlexTouch U-100 insulin) rosuvastatin 5 mg tablet 5 mg PO QAM 12/09/24 01/23/25 History tizanidine 4 mg tablet 4 mg PO Q6 PRN Muscle Spasm 12/09/24 01/23/25 History trazodone 50 mg tablet 50 mg PO HS 12/09/24 01/23/25 History tamsulosin 0.4 mg capsule 0.4 mg PO HS #30 caps 12/14/24 01/23/25 Rx Lactobacillus acidoph-L.bulgaricus 1 tab PO QPM 01/23/25 01/23/25 History 1 million cell tablet (Floranex) Patient History Medical History Bilateral flank pain Acute kidney injury superimposed on chronic kidney disease Leukocytosis Hydronephrosis History of pulmonary embolism 2008 s/p zoraida filter History of DVT (deep vein thrombosis) 2008 (during ICU [place] admission/PNA) Subclavian arterial stenosis (06/2023) Cerebrovascular duplex study 06/2023: Retrograde flow in the right vertebral artery. 50-69% proximal right subclavian artery stenosis. Antegrade flow in the left vertebral artery. Normal flow in the left subclavian artery. Hx of pulmonary edema Pickwickian syndrome Orthostasis Lumbago with sciatica Left knee DJD Hx of hydronephrosis Hyperlipemia Hypertension HIT (heparin-induced thrombocytopenia) (2008) hx - [facility] then life flight to [place] > "resolved" Deep vein thrombosis (DVT) Recurrent per records On Eliquis Initially occurred during ICU [place] admission, s/p zoraida filter [address] Right LE doppler 11/2023 showed no DVT within right LE Hepatosplenomegaly Hx of fracture radius Depression with anxiety Chronic diastolic (congestive) heart failure follos with Dr[facility] 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) VRE UTI during inpatient admit at [facility] Hx of Clostridium difficile infection (12/2023) during inpatient admit to [facility], treated, no current sx Hx of constipation Hx of vertigo occasional Hx: UTI (urinary tract infection) frequent Hx of fall (11/2023) last fall was November 2023 - no injuries Diabetes IDDM ELISSA on CPAP CPAP + 3L O2 (O2 is continuous) Hx of septic shock (12/2023) due to UTI - admit to [facility] Presence of IVC filter (2008) [facility], continues to be in place due to current clots behind right knee Hx pulmonary embolism (2008) s/p zoraida filter GERD (gastroesophageal reflux disease) RLS (restless legs syndrome) History of pneumonia (2008) x 8 weeks, [facility] then tx to [facility], "put me in a coma, flew me to [facility], had a trach then went to jail with trach" Trach removed Sep 2009 Fibromyalgia Hypothyroidism Hx of pyelonephritis (12/2023) CKD (chronic kidney disease), stage III follows [facility] Nephrology Hx of congestive heart failure takes deloris, merys Dr. Jose C Garcia Chronic hypoxemic respiratory failure O2 3-4L at all times - sees Pulm @ [facility] - [facility] Transient hypotension Mitral valve stenosis Mild per cardio records (due to severe calcification) Echo 06/2023: Borderline mild mitral stenosis secondary to severe mitral annular calcification, follows [facility] cardio Dr. Woodall Cataract, bilateral Neuropathy feet On home oxygen therapy 3-4L continuous Surgical History History of colon resection (2008) secondary to R colon perforation, resected treated with colostomy and eventual reversal in 2008 Hx of tracheostomy (06/2009) (per [facility] records), secondary to acute respiratory failure in setting of PNA, reversed a few months later in 2009 Hx of cystoscopy (11/25/23) with stent placement right side due to infection History of transcarotid artery revascularization (TCAR) (08/2023) right, [facility] History of right knee joint replacement (Unknown) > 10 years Hx laparoscopic cholecystectomy Hx of thyroidectomy (2011) total Family history of reaction to anesthesia Brother/niece- PONV Brother- "wakes up violent" History of colostomy reversal (10/1997) History of tooth extraction History of arthroscopy (Unknown) left ankle , > 10 years History of incisional hernia repair Nausea and vomiting after administration of anesthetic agent History of colonoscopy Family History Father , age 74 Lung cancer Mother , age 45 Cirrhosis Social History Smoking Status: Never smoker Tobacco Type: Cigarettes Cigarettes Per Day: 1996; Second Hand Exposure: No; Do You Dip or Chew Tobacco: No; Hx Alcohol Use: No Hx Substance Use: No Preferred Language: Turkish Communication Ability: Effective Care Clinician Required: No Beliefs That Will Affect Care: None marital status: Single Current Living Situation: Alone Current Living Situation Comment: Lives by self in apartment How many Children do You have: 0 Feels Safe at Home: Yes Safety Concerns: Feels Safe At This Time Assistive Devices: Oxygen - Continuous and Walker Review of Systems Review of Systems: All systems reviewed & are unremarkable except as noted in HPI & below Physical Exam Constitutional: + ill appearing; no acute distress Respiratory: no respiratory distress and no labored breathing Musculoskeletal: Head/Neck/Chest: normocephalic Skin: No visible rashes or lesions to exposed skin areas Neurologic: awake Psychiatric: Orientation: alert and oriented x 3 Results & Data Vital Signs (Past 12 Hours) Vital Signs Temp Pulse Pulse Resp BP BP Pulse Ox 01/25/25 11:58 114 H 20 95 01/25/25 11:10 36.8 C 105 H 19 128/66 90 01/25/25 09:20 118/68 01/25/25 08:19 88 16 98/57 L 01/25/25 07:48 93 H 99/63 L 01/25/25 07:38 37.2 C 92 H 18 79/41 L 94 01/25/25 07:36 01/25/25 07:32 37.2 C 91 H 18 66/46 L 92 01/25/25 03:14 37.1 C 91 H 18 97/66 L 92 01/25/25 01:30 38.6 C H 100 H 20 75/55 L 94 O2 Del Method O2 Flow Rate 01/25/25 11:58 Nasal Cannula 3 01/25/25 11:10 Nasal Cannula 3 01/25/25 09:20 01/25/25 08:19 01/25/25 07:48 01/25/25 07:38 Nasal Cannula 3 01/25/25 07:36 Nasal Cannula 3 01/25/25 07:32 Nasal Cannula 3 01/25/25 03:14 Nasal Cannula 3 01/25/25 01:30 Nasal Cannula 3 PG Care Time/CCT Total # of Minutes Spent Total Time Spent with Patient: Total time spent is greater than 50% in coordination of care (as documented) at patient's floor/unit and/or counseling patient: Coding Level of Care Code 24096 INT INP/OBS CARE 2MIN Diagnoses Complicated urinary tract infection N39.0 Hydronephrosis N13.30 Hydronephrosis type: unspecified (2) Hydronephrosis Hydronephrosis type: unspecified Qualified Code(s): N13.30 - Unspecified hydronephrosis
--- NOTE | 2025-01-25 12:30 | Hospitalist Progress Note ---
Date of Service January 25, 2025 Assessment & Plan (1) Chronic hypoxic respiratory failure, on home oxygen therapy: Plan Patient is 69-year-old female with PMH significant for DM II, HTN, HLD, CAD, chronic HFpEF, CKD III, chronic hypoxic respiratory failure on 2 L O2 at rest and 4L with ambulation, ILD, sleep apnea, obesity, postsurgical hypothyroidism, history HIT, depression, anxiety, history of recurrent DVT and PE, s/p IVC filter who presented to ER with complaint of being out of oxygen secondary to power outage x 1 day. Her oxygen supplier was unable to bring her oxygen tanks. In ER placed on her normal home O2 at 2L with O2 sat 96% and no further SOB reported. Denies CP Continue home supplemental oxygen On 2-3L NC while resting and 4L NC while ambulating per baseline Power restored at home on 01/24 but pt now being treated for complicated UTI Complicated UTI Sepsis Recent hospitalization 12/09/2024-12/14/2024 for UTI, right ureteral stent exchange on 12/13/2024 by urology, negative blood cultures, final urine culture with more than 3 types of organisms present and had received 5 days IV cefepime and daptomycin. Patient reports chronic urinary frequency and chronic lower abdominal pressure and feels this is at baseline. UA on admission negative repeat UA on January 24 suggestive of infection Urine Cx NGTD Blood Cx NGTD CT abd/pelvis noting stable urological changes and findings suggestive of an acute infection On IV Zosyn and Daptomycin Urology consulted, appreciate recs DM II Insulin dependent A1c: 6.8 on 12/10/24 Chronic, stable. Continue basal bolus insulin. Will reduce home dose long-acting insulin as pt required less during prior hospital admissions. Will monitor and further adjust Chronic diastolic CHF Appears euvolemic Continue Lasix History of PE, recurrent DVTs S/P IVC filter Continue Eliquis History R TCAR on 09/06/[address] Tang Continue aspirin, Plavix CKD stage III Cr: 1.9. Baseline creatinine ~1.8 Monitor renal functions HLD Continue rosuvastatin Fibromyalgia Continue duloxetine and gabapentin. Depression, anxiety Chronic, stable. Continue clonazepam, duloxetine RLS Continue ropinirole. Hypothyroidism Continue levothyroxine. GERD Continue pantoprazole. DVT Prophylaxis On Eliquis Full Code as per discussion with pt Follows with Dr Andujar for routine care Admission and Anticipated Discharge Date Admission Date: January 23, 2025 Subjective pt was seen in the AM Blood pressure was low at the time but pt awake and alert, conversant BP improved Review of Systems Review of Systems: All systems reviewed & are unremarkable except as noted in Subjective Physical Exam Physical Exam: General: Alert, oriented.shaking HEENT: NC/AT CV: RRR Resp: Breath sounds clear bilaterally Abdomen:Soft, tender in RLQ Extremities: No edema in lower extremities bilaterally. Results & Data Results & Data Vital Signs (Past 12 Hours) Vital Signs Temp Pulse Pulse Resp BP BP Pulse Ox 01/25/25 11:58 114 H 20 95 01/25/25 11:10 36.8 C 105 H 19 128/66 90 01/25/25 09:20 118/68 01/25/25 08:19 88 16 98/57 L 01/25/25 07:48 93 H 99/63 L 01/25/25 07:38 37.2 C 92 H 18 79/41 L 94 01/25/25 07:36 01/25/25 07:32 37.2 C 91 H 18 66/46 L 92 01/25/25 03:14 37.1 C 91 H 18 97/66 L 92 01/25/25 01:30 38.6 C H 100 H 20 75/55 L 94 O2 Del Method O2 Flow Rate 01/25/25 11:58 Nasal Cannula 3 01/25/25 11:10 Nasal Cannula 3 01/25/25 09:20 01/25/25 08:19 01/25/25 07:48 01/25/25 07:38 Nasal Cannula 3 01/25/25 07:36 Nasal Cannula 3 01/25/25 07:32 Nasal Cannula 3 01/25/25 03:14 Nasal Cannula 3 01/25/25 01:30 Nasal Cannula 3
--- NOTE | 2025-01-25 20:08 | Communication Note ---
Date of Service: January 25, 2025 RN asking about patient Eliquis prior to possible OR in AM. Hemoglobin 11 from 13.2 yesterday. No overt bleed as per RN. Hold Eliquis for now.
[2025-01-25] MEDS: SODIUM CHLORIDE 0.9% 500 ML IV STA (21:05)
[2025-01-25] MEDS: traMADol HCL 50 MG TABLET PO PRN (21:19)
[2025-01-25 23:28] LABS: Hematocrit (blood only) 35.1 % (37.0-47.0); Hemoglobin 11.2 g/dl (12.0-16.0)
[2025-01-25] MEDS: traMADol HCL 50 MG TABLET PO STA (23:37)
[2025-01-25] MEDS: SODIUM CHLORIDE 0.9% 1,000 ML IV ONE (23:45)
[2025-01-25 23:46] LABS: BUN Creatinine Ratio 13.8 (10-20); Calcium 8.2 mg/dl (8.6-10.3); Creatinine Clr Calc Pharmacy 27.4 ml/min; Potassium 3.8 mmol/L (3.5-5.1)
[2025-01-25 23:59] LABS: Partial Thromboplastin Ratio 1.2; Partial Thromboplastin Time 33 Seconds (21-31)
[2025-01-26] MEDS: hydrOXYzine HCl 10 MG TAB PO PRN (01:34)
[2025-01-26] MEDS: traMADol HCL 50 MG TABLET PO STA (01:34)
[2025-01-26] MEDS: LACTATED RINGER'S 1,000 ML IV ONE (01:50)
[2025-01-26 06:29] LABS: Basophils # (auto) 0.05 K/uL (0.00-0.20); Basophils % (auto) 0.5 %; Eosinophils % (auto) 2.9 %; Hematocrit (blood only) 31.9 % (37.0-47.0); Hemoglobin 10.2 g/dl (12.0-16.0); Immature Granulocytes # (auto) 0.05 K/uL (0.01-0.20); Immature Granulocytes % (auto) 0.5 %; Lymphocytes % (auto) 9.8 %; Mean Corpuscular Hemoglobin 29.7 pg (25.0-34.0); Monocytes % (auto) 5.9 %; Neutrophils # (auto) 8.21 K/uL (1.40-6.50); Neutrophils % (auto) 80.4 %; Platelet Count 191 K/uL (130-400); RDW Coefficient of Variation 14.4 % (11.5-14.5); RDW Standard Deviation 49.1 fL (36.4-46.3); Red Blood Count 3.43 M/uL (4.20-5.40); White Blood Count 10.21 K/ul (4.8-10.8)
[2025-01-26 06:51] LABS: BUN Creatinine Ratio 14.7 (10-20); Calcium 7.9 mg/dl (8.6-10.3); Creatinine Clr Calc Pharmacy 31.7 ml/min; Magnesium 1.8 mg/dl (1.7-2.4); Potassium 4.1 mmol/L (3.5-5.1)
[2025-01-26] MEDS: INSULIN ASPART PER UNIT CHARGE SC SCH ×3 (07:27→17:10)
[2025-01-26] MEDS ORDERED: Nursing to Pharmacy Communication SCH (07:30)
--- NOTE | 2025-01-26 09:30 | Urology Progress Note ---
Date of Service January 26, 2025 Assessment & Plan (1) Complicated urinary tract infection: (2) Ureteral stent retained: Plan Due to ongoing fevers, soft blood pressure, we will plan on cystoscopy, right retrograde pyelogram and right ureteral stent exchange to ensure there is maxim al drainage of her upper tract. We discussed risks and benefits of surgery. She expressed understanding and would like to proceed. Admission and Anticipated Discharge Date Admission Date: January 25, 2025 Subjective Still not feeling well, having fevers overnight with some softer blood pressures Leukocytosis improved to 10.21, creatinine slightly improved from 2.6-2.25. Lactate improved from 2.8-1.4. Blood cultures negative at 24 hours, urine culture with 3 types of organisms present. Physical Exam Physical Exam: Fatigued appearing, NAD Results & Data Vital Signs (Past 12 Hours) Vital Signs Temp Pulse Pulse Pulse Resp BP BP 01/26/25 08:50 01/26/25 07:44 37.5 C 98 H 18 91/57 L 01/26/25 06:45 37.9 C H 101 H 24 145/63 H 01/26/25 05:41 38.2 C H 98 H 22 161/70 H 01/25/25 22:15 89 115/69 Pulse Ox O2 Del Method O2 Flow Rate 01/26/25 08:50 Nasal Cannula 4 01/26/25 07:44 95 Nasal Cannula 4 01/26/25 06:45 96 Nasal Cannula 4 01/26/25 05:41 97 Nasal Cannula 4 01/25/25 22:15 98 Nasal Cannula 3 PG Care Time/CCT Total # of Minutes Spent Total Time Spent with Patient: Total time spent is greater than 50% in coordination of care (as documented) at patient's floor/unit and/or counseling patient: Coding Level of Care Code 30344 SUB INP/OBS CARE 2/35MIN Diagnoses Complicated urinary tract infection N39.0 Ureteral stent retained Z96.0
[2025-01-26] MEDS ORDERED: GLYCOPYRROLATE 0.2 MG/ML VIAL ONE (13:50)
[2025-01-26] MEDS ORDERED: KETAMINE HCL 10MG/ML SYR ONE (13:50)
[2025-01-26] MEDS ORDERED: fentaNYL citrate PF 100 MCG/2 ML VIAL ONE (13:50)
[2025-01-26] MEDS ORDERED: MIDAZOLAM HCL 1 MG/ML 2ML VIAL ONE (13:50)
[2025-01-26] MEDS ORDERED: PROPOFOL IV EMULSION 10 MG/ML 20 ML VIAL IV ONE (13:50)
[2025-01-26] MEDS ORDERED: LIDOCAINE 2% 2 ML VIAL/AMP(20MG/ML) INFIL ONE (13:50)
--- NOTE | 2025-01-26 13:55 | Anesthesiology Consultation ---
Date of Service January 26, 2025 Assessment & Plan Chart Review Chart Review: Acceptable Risk for Surgery Consults Requested none History Surgery Operation Date: 01/26/25 12:30 Proposed Procedures p Ureteral Stent Insertion/Removal - Al Arriaga MD Height/Weight Height: 5 ft 5 in Weight: 127 kg Allergies Allergy/AdvReac Type Severity Reaction Status Date / Time morphine Allergy Severe Swelling, Verified 01/23/25 19:13 "Violent reaction- almost " dapagliflozin [From Farxiga] Allergy Intermediate Yeast Verified 01/23/25 19:13 infections tetanus toxoid, adsorbed Allergy Intermediate Passed Verified 01/23/25 19:13 out, "got sick" as child bupropion [From Wellbutrin] AdvReac Intermediate Recurrent Verified 01/23/25 19:13 falls as per patient codeine AdvReac Intermediate Hallucinati Verified 01/23/25 19:13 ons empagliflozin AdvReac Intermediate Yeast Verified 01/23/25 19:13 [From Jardiance] infections heparin AdvReac Intermediate HIT, Verified 01/23/25 19:13 "Fluid in lungs" hydrocodone [From Vicodin] AdvReac Intermediate Drowsy Verified 01/23/25 19:13 Medications Home Medications Medication Instructions Recorded Confirmed Last Taken aspirin 81 mg tablet,delayed 81 mg PO QAM 09/20/23 01/23/25 01/23/25 release clonazepam 0.5 mg tablet 0.5 mg PO TID 09/20/23 01/23/25 01/23/25 15:00 furosemide 40 mg tablet 60 mg PO BID 09/20/23 01/23/25 01/23/25 08:00 magnesium oxide 400 mg (241.3 mg 400 mg PO BID 09/20/23 01/23/25 01/23/25 08:00 magnesium) tablet omeprazole 20 mg capsule,delayed 20 mg PO QAM 09/20/23 01/23/25 01/23/25 release potassium chloride 20 mEq 20 meq PO BID 09/20/23 01/23/25 01/23/25 08:00 tablet,extended release(part/cryst) ropinirole 2 mg tablet 2 mg PO HS 09/20/23 01/23/25 01/22/25 sennosides 8.6 mg-docusate sodium 1 tab PO BID 09/20/23 01/23/25 01/23/25 08:00 50 mg tablet (Senna-Time S) tramadol 50 mg tablet 50 mg PO Q8 PRN Pain 09/20/23 01/23/25 01/23/25 08:00 apixaban 2.5 mg tablet (Eliquis) 2.5 mg PO BID 10/24/23 01/23/25 01/23/25 08:00 dicyclomine 20 mg tablet 20 mg PO QID PRN abdominal cramping 10/24/23 01/23/25 04/25/24 18:00 levothyroxine 200 mcg tablet 200 mcg PO DAILYBB #30 tabs 12/07/23 01/23/25 01/23/25 cholecalciferol (vitamin D3) 25 25 mcg PO QAM 01/16/24 01/23/25 01/23/25 mcg (1,000 unit) tablet clopidogrel 75 mg tablet 75 mg PO QAM 01/16/24 01/23/25 01/23/25 duloxetine 60 mg capsule,delayed 60 mg PO QAM 12/09/24 01/23/25 01/23/25 release fluticasone propionate 50 2 spray intranasal AMHS 12/09/24 01/23/25 01/23/25 08:00 mcg/actuation nasal spray,suspension gabapentin 300 mg capsule 300 mg PO AMHS 12/09/24 01/23/25 01/23/25 08:00 insulin aspart U-100 100 unit/mL See Rx Instructions .Route .COMPLEX 12/09/24 01/23/25 01/23/25 (3 mL) subcutaneous pen (Novolog FlexPen U-100 Insulin aspart) insulin degludec 100 unit/mL (3 41 unit subcut QPM 12/09/24 01/23/25 01/22/25 mL) subcutaneous pen (Tresiba FlexTouch U-100 insulin) rosuvastatin 5 mg tablet 5 mg PO QAM 12/09/24 01/23/25 01/23/25 tizanidine 4 mg tablet 4 mg PO Q6 PRN Muscle Spasm 12/09/24 01/23/25 01/22/25 trazodone 50 mg tablet 50 mg PO HS 12/09/24 01/23/25 01/22/25 tamsulosin 0.4 mg capsule 0.4 mg PO HS #30 caps 12/14/24 01/23/25 01/22/25 Lactobacillus acidoph-L.bulgaricus 1 tab PO QPM 01/23/25 01/23/25 01/22/25 1 million cell tablet (Floranex) Active Medications Generic Name Dose Route Start Last Admin Trade Name Freq PRN Reason Stop Dose Admin Apixaban 2.5 mg 01/23/25 21:00 01/25/25 11:20 Apixaban 2.5 Mg Tab PO 02/22/25 20:59 2.5 mg BID ROBERT Administration Aspirin 81 mg 01/24/25 09:00 01/25/25 11:20 Aspirin 81 Mg Ectab PO 02/23/25 08:59 81 mg QAM ROBERT Administration Clonazepam 0.5 mg 01/23/25 21:00 01/26/25 07:49 Clonazepam 0.5 Mg Tab PO 02/22/25 20:59 0.5 mg TID ROBERT Administration Clopidogrel Bisulfate 75 mg 01/24/25 09:00 01/26/25 09:27 Clopidogrel Bisulfate 75 Mg Tab PO 02/23/25 08:59 75 mg QAM ROBERT Administration Dicyclomine HCl 20 mg 01/23/25 20:25 01/26/25 07:49 Dicyclomine Hcl 20 Mg Tab PO 02/22/25 20:24 20 mg QID PRN Administration abdominal cramping Duloxetine HCl 60 mg 01/24/25 09:00 01/26/25 07:49 Duloxetine Hcl 60 Mg Cap PO 02/23/25 08:59 60 mg QAM ROBERT Administration Fluticasone Propionate 2 sprays 01/23/25 21:00 01/26/25 07:50 Fluticasone Propionate Na Spr 16 Gm Btl JESUS 02/22/25 20:59 2 sprays AMHS ROBERT Administration Furosemide 60 mg 01/24/25 08:00 01/24/25 13:04 Furosemide 40 Mg Tab PO 02/23/25 07:59 Not Given BID@0800,1200 ROBERT Gabapentin 300 mg 01/25/25 08:00 01/26/25 07:50 Gabapentin 300 Mg Cap PO 02/24/25 07:59 300 mg Q12H ROBERT Administration Hydroxyzine HCl 10 mg 01/26/25 01:18 01/26/25 01:34 Hydroxyzine Hcl 10 Mg Tab PO 02/25/25 01:17 10 mg QID PRN Administration Anxiety Piperacillin Sod/Tazobactam Sod 4.5 gm in 100 mls @ 25 mls/hr 01/24/25 18:00 01/26/25 13:40 Zosyn IV 02/03/25 17:59 0 mls/hr Q8H ROBERT Infusion Protocol Acetaminophen 1,000 mg in 100 mls @ 400 mls/hr 01/25/25 06:00 01/26/25 06:22 Ofirmev IV 01/28/25 05:59 Infused Q8 ROBERT Infusion Daptomycin 850 mg/ Syringe 17 mls @ 8.5 mls/min 01/24/25 23:30 01/25/25 23:37 IV 02/03/25 23:29 8.5 mls/min Q24H ROBERT Administration Protocol Lactated Ringer's 1,000 mls @ 75 mls/hr 01/26/25 02:00 01/26/25 09:26 Lr IV 01/26/25 15:19 Infused .[id number] Infusion Insulin Aspart 0 units 01/26/25 12:00 01/26/25 12:10 Insulin Aspart Per Unit Charge SC 02/25/25 11:59 Not Given Q6H ROBERT Insulin Glargine 10 units 01/23/25 21:00 01/25/25 21:18 Lantus Per Unit Charge SQ 02/22/25 20:59 10 units HS ROBERT Administration Lactobacillus Acidophilus 625 mg 01/23/25 21:00 01/25/25 21:11 Advanced Probiotic 625 Mg Capsule PO 02/22/25 20:59 625 mg QPM ROBERT Administration Levothyroxine Sodium 200 mcg 01/24/25 06:30 01/26/25 05:58 Levothyroxine Sodium 200 Mcg Tablet PO 02/23/25 06:29 200 mcg DAILYBB ROBERT Administration Magnesium Oxide 400 mg 01/23/25 21:00 01/26/25 07:49 Magnesium Oxide 400 Mg Tab PO 02/22/25 20:59 400 mg BID ROBERT Administration Pantoprazole Sodium 40 mg 01/24/25 09:00 01/26/25 07:49 Pantoprazole 40 Mg Tab PO 02/23/25 08:59 40 mg QAM ROBERT Administration Potassium Chloride 20 meq 01/23/25 21:00 01/24/25 20:44 Potassium Chloride Crtab 20 Meq Tabcr PO 02/22/25 20:59 20 meq BID ROBERT Administration Ropinirole HCl 2 mg 01/23/25 21:00 01/25/25 21:12 Ropinirole Hcl 2 Mg Tablet PO 02/22/25 20:59 2 mg HS ROBERT Administration Rosuvastatin Calcium 5 mg 01/24/25 09:00 01/24/25 08:55 Rosuvastatin Calcium 5 Mg Tab PO 02/23/25 08:59 5 mg QAM ROBERT Administration Senna/Docusate Sodium 1 tab 01/23/25 21:00 01/26/25 07:53 Docusate Sodium/Senna 50/8.6mg Tab PO 02/22/25 20:59 Not Given BID ROBERT Tamsulosin HCl 0.4 mg 01/23/25 21:00 01/25/25 21:12 Tamsulosin Hcl 0.4 Mg Cap PO 02/22/25 20:59 0.4 mg HS ROBERT Administration Tizanidine HCl 4 mg 01/23/25 20:25 01/26/25 07:50 Tizanidine Hcl 4 Mg Tablet PO 02/22/25 20:24 4 mg Q6 PRN Administration Muscle Spasm Tramadol HCl 50 mg 01/24/25 23:53 01/25/25 21:19 Tramadol Hcl 50 Mg Tablet PO 02/23/25 20:22 50 mg Q8H PRN Administration Mod-Sev Pain (Scale 4-10) Trazodone HCl 50 mg 01/23/25 21:00 01/25/25 21:12 Trazodone Hcl 50 Mg Tab PO 02/22/25 20:59 50 mg HS ROBERT Administration Vitamin D 25 mcg 01/24/25 09:00 01/26/25 07:50 Cholecalciferol 25 Mcg (1000 Units) Tab PO 02/23/25 08:59 25 mcg QAM ROBERT Administration Past Medical History Medical History Bilateral flank pain Acute kidney injury superimposed on chronic kidney disease Leukocytosis Hydronephrosis History of pulmonary embolism 2008 s/p zoraida filter History of DVT (deep vein thrombosis) 2008 (during ICU [facility] admission/PNA) Subclavian arterial stenosis (06/2023) Cerebrovascular duplex study 06/2023: Retrograde flow in the right vertebral artery. 50-69% proximal right subclavian artery stenosis. Antegrade flow in the left vertebral artery. Normal flow in the left subclavian artery. Hx of pulmonary edema Pickwickian syndrome Orthostasis Lumbago with sciatica Left knee DJD Hx of hydronephrosis Hyperlipemia Hypertension HIT (heparin-induced thrombocytopenia) (2008) hx - [facility] then life flight to [facility] > "resolved" Deep vein thrombosis (DVT) Recurrent per records On Eliquis Initially occurred during ICU [facility] admission, s/p zoraida filter [address] Right LE doppler 11/2023 showed no DVT within right LE Hepatosplenomegaly Hx of fracture radius Depression with anxiety Chronic diastolic (congestive) heart failure follos with Dr. 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) VRE UTI during inpatient admit at [facility] Hx of Clostridium difficile infection (12/2023) during inpatient admit to [facility], treated, no current sx Hx of constipation Hx of vertigo occasional Hx: UTI (urinary tract infection) frequent Hx of fall (11/2023) last fall was November 2023 - no injuries Diabetes IDDM ELISSA on CPAP CPAP + 3L O2 (O2 is continuous) Hx of septic shock (12/2023) due to UTI - admit to [facility] Presence of IVC filter (2008) [facility], continues to be in place due to current clots behind right knee Hx pulmonary embolism (2008) s/p zoraida filter GERD (gastroesophageal reflux disease) RLS (restless legs syndrome) History of pneumonia (2008) x 8 weeks, [facility] then tx to [facility], "put me in a coma, flew me to [facility], had a trach then went to alf with trach" Trach removed Sep 2009 Fibromyalgia Hypothyroidism Hx of pyelonephritis (12/2023) CKD (chronic kidney disease), stage III follows [facility] Nephrology Hx of congestive heart failure takes lasix, sees Dr. Woodall Cardio Chronic hypoxemic respiratory failure O2 3-4L at all times - sees Pulm @ [facility] Transient hypotension Mitral valve stenosis Mild per cardio records (due to severe calcification) Echo 06/2023: Borderline mild mitral stenosis secondary to severe mitral annular calcification, follows [facility] cardio Dr. Woodall Cataract, bilateral Neuropathy feet On home oxygen therapy 3-4L continuous Past Family History Family History Father , age 74 Lung cancer Mother , age 45 Cirrhosis Past Surgical History Surgical History History of colon resection (2008) secondary to R colon perforation, resected treated with colostomy and eventual reversal in 2008 Hx of tracheostomy (06/2009) (per [facility] records), secondary to acute respiratory failure in setting of PNA, reversed a few months later in 2009 Hx of cystoscopy (11/25/23) with stent placement right side due to infection History of transcarotid artery revascularization (TCAR) (08/2023) right, [facility] History of right knee joint replacement (Unknown) > 10 years Hx laparoscopic cholecystectomy Hx of thyroidectomy (2011) total Family history of reaction to anesthesia Brother/niece- PONV Brother- "wakes up violent" History of colostomy reversal (10/1997) History of tooth extraction History of arthroscopy (Unknown) left ankle , > 10 years History of incisional hernia repair Nausea and vomiting after administration of anesthetic agent History of colonoscopy Social History Smoking Status: Never smoker tobacco type: cigarettes Smoking cigarettes per day: 1997 Do You Dip or Chew Tobacco: No Hx Alcohol Use: No Alcohol type: wine alcohol intake frequency: holidays/special occasions only Hx Substance Use: No substance use type: does not use Physical Exam Vital Signs Last Vital Signs Temp 37.5 C 01/26/25 07:44 Pulse 98 H 01/26/25 07:44 Resp 18 01/26/25 07:44 BP 97/51 L 01/26/25 09:32 Pulse Ox 95 01/26/25 07:44 O2 Del Method Nasal Cannula 01/26/25 08:50 O2 Flow Rate 4 01/26/25 08:50 Testing Laboratory Results 01/26/25 06:07 01/26/25 06:07 PT 11.2 Seconds (9.0-12.0) 01/23/25 18:25 INR 1.0 (0.9-1.1) 01/23/25 18:25 APTT 33 Seconds (21-31) H 01/25/25 23:17 Urine Color [place] 01/24/25 11:05 Urine Appearance Turbid (Clear) A 01/24/25 11:05 Urine pH 7.5 (4.5-7.5) 01/24/25 11:05 Ur Specific [place] 1.012 (1.000-1.030) 01/24/25 11:05 Urine Protein 1+ (Negative) H 01/24/25 11:05 Urine Glucose (UA) Negative (Negative) 01/24/25 11:05 Urine Ketones Negative (Negative) 01/24/25 11:05 Urine Nitrite Positive (Negative) A 01/24/25 11:05 Ur Leukocyte Esterase 3+ (Negative) H 01/24/25 11:05 Urine WBC (Auto) >50 /hpf (0-5) H 01/24/25 11:05 Urine RBC (Auto) >20 /hpf (0-2) H 01/24/25 11:05 U Hyaline Cast (Auto) 3-5 /lpf (0-2) H 01/24/25 11:05 U Epithel Cells (Auto) 0-2 /hpf (0-2) 01/24/25 11:05 Urine Bacteria (Auto) 4+ (None Seen) H 01/24/25 11:05 Blood Type O Positive 01/25/25 23:17 Antibody Screen NEGATIVE 01/25/25 23:17 01/24/25 14:07 Aerobic Blood Culture - Preliminary Blood No growth in Aerobic bottle after 24 hours. Anaerobic Blood Culture - Final 01/24/25 14:15 Aerobic Blood Culture - Preliminary Blood No growth in Aerobic bottle after 24 hours. Anaerobic Blood Culture - Final 01/24/25 11:05 Urine Culture - Final Urine,Clean Catch Three types of organisms present, all high counts. Repeat collection recommended. No further identifications or sensitivities to follow. 01/23/25 20:45 Urine Culture - Final Urine,Clean Catch Three types of organisms present, all high counts. Repeat collection recommended. No further identifications or sensitivities to follow. 01/26/25 01/26/25 12:05 05:36 POC Glucose 140 H 133 H
--- NOTE | 2025-01-26 14:08 | Hospitalist Progress Note ---
Date of Service January 26, 2025 Assessment & Plan (1) Chronic hypoxic respiratory failure, on home oxygen therapy: Plan Patient is 69-year-old female with PMH significant for DM II, HTN, HLD, CAD, chronic HFpEF, CKD III, chronic hypoxic respiratory failure on 2 L O2 at rest and 4L with ambulation, ILD, sleep apnea, obesity, postsurgical hypothyroidism, history HIT, depression, anxiety, history of recurrent DVT and PE, s/p IVC filter who presented to ER with complaint of being out of oxygen secondary to power outage x 1 day. Her oxygen supplier was unable to bring her oxygen tanks. In ER placed on her normal home O2 at 2L with O2 sat 96% and no further SOB reported. Denies CP Continue home supplemental oxygen On 2-3L NC while resting and 4L NC while ambulating per baseline Power restored at home on 01/24 but pt now being treated for complicated UTI Complicated UTI Sepsis Recent hospitalization 12/09/2024-12/14/2024 for UTI, right ureteral stent exchange on 12/13/2024 by urology, negative blood cultures, final urine culture with more than 3 types of organisms present and had received 5 days IV cefepime and daptomycin. Patient reports chronic urinary frequency and chronic lower abdominal pressure and feels this is at baseline. UA on admission negative repeat UA on January 24 suggestive of infection Urine Cx NGTD Blood Cx NGTD CT abd/pelvis noting stable urological changes and findings suggestive of an acute infection On IV Zosyn and Daptomycin Urology consulted, appreciate recs -s/p R stent exchange on 01/26, follow cultures obtained DM II Insulin dependent A1c: 6.8 on 12/10/24 Chronic, stable. Continue basal bolus insulin. Will reduce home dose long-acting insulin as pt required less during prior hospital admissions. Will monitor and further adjust Chronic diastolic CHF Appears euvolemic Continue Lasix History of PE, recurrent DVTs S/P IVC filter Continue Eliquis History R TCAR on 09/06/[address] Tang Continue aspirin, Plavix CKD stage III Cr: 1.9. Baseline creatinine ~1.8 Monitor renal functions HLD Continue rosuvastatin Fibromyalgia Continue duloxetine and gabapentin. Depression, anxiety Chronic, stable. Continue clonazepam, duloxetine RLS Continue ropinirole. Hypothyroidism Continue levothyroxine. GERD Continue pantoprazole. DVT Prophylaxis On Eliquis Full Code as per discussion with pt Follows with Dr Andujar for routine care Admission and Anticipated Discharge Date Admission Date: January 25, 2025 Subjective Overnight in pain and BP still on lower end Sleepy on exam but oriented x3 Review of Systems Review of Systems: All systems reviewed & are unremarkable except as noted in Subjective Physical Exam Physical Exam: General: Alert, oriented.shaking HEENT: NC/AT CV: RRR Resp: Breath sounds clear bilaterally Abdomen:Soft, tender in RLQ Extremities: No edema in lower extremities bilaterally. Results & Data Results & Data Vital Signs (Past 12 Hours) Vital Signs Temp Pulse Pulse Pulse Resp BP BP 01/26/25 09:32 97/51 L 01/26/25 08:50 01/26/25 07:44 37.5 C 98 H 18 91/57 L 01/26/25 06:45 37.9 C H 101 H 24 145/63 H 01/26/25 05:41 38.2 C H 98 H 22 161/70 H Pulse Ox O2 Del Method O2 Flow Rate 01/26/25 09:32 01/26/25 08:50 Nasal Cannula 4 01/26/25 07:44 95 Nasal Cannula 4 01/26/25 06:45 96 Nasal Cannula 4 01/26/25 05:41 97 Nasal Cannula 4
[2025-01-26] MEDS ORDERED: ONDANSETRON INJ 2 MG/ML 2 ML VIAL ONE (14:36)
--- NOTE | 2025-01-26 14:48 | Operative Report ---
PG Post Operative Report Pre & Post Diagnosis Operation Date: 01/26/25 12:30 Pre-Op Diagnosis: Hydronephrosis Urinary Tract Infection Post-Op Diagnosis: Hydronephrosis Urinary Tract Infection I identified the patient and participated in the time-out.: Yes Procedure Operation Date: 01/26/25 12:30 Actual Procedures p Cystoscopy, Retrograde Pyelogram, Flexible Ureteronephroscopy and Ureteral Stent Exchange Right - lA Arriaga MD Surgeon Al Arriaga MD Early Childhood Services Coordinator None Estimated Blood Loss 0 Findings See Below Right ureteral stent in position was not overly encrusted, however urine in the kidney was purulent Right ureteral stent was upsized Urine from the right kidney was sent for culture Specimens Urine from right kidney Drains 7 Georgian by 26 cm double-J ureteral stent to the right ureter Anesthesia Type MAC Complications none Disposition Accompanied Patient To Recovery: Yes Disposition: Recovery Room Indications This is a 69-year-old female followed by urology for right hydronephrosis thought to be related to UPJ obstruction. She has a history of urosepsis and while in the hospital she recently developed signs concerning for infection. Although right ureteral stent has only been in place approximately 1 month, due to lack of improvement with conservative measures, she is brought to the OR for right ureteral stent exchange. Description of Procedure The patient was identified in the holding area and informed consent was confirmed. She was marked on the right side, then was taken to the operating room where anesthesia was initiated. She was placed in the dorsal lithotomy position with all pressure points appropriately padded. She was prepped and draped in the usual sterile fashion and a preoperative timeout was performed. A well-lubricated cystoscope was inserted per urethra and panendoscopy was performed. The urethra was normal in appearance. Bladder was notable for fair amount of urine present, suggesting incomplete emptying. There was significant debris, possible purulent material within the bladder itself. This was e vacuated through the cystoscope. The right ureteral orifice was in normal position with the stent in place. I advanced the 0.038 inch zip wire along the side of the stent. The stent was then removed leaving the wire in place. Over the wire I advanced a 5 Georgian open-ended catheter. When the tip was positioned what seemed the likely position of the kidney, I attempted to aspirate some fluid. I got a small amount of purulent material back, but not enough that I was convinced that it was in the renal pelvis. The fluid was sent for culture labeled as urine from right kidney. Retrograde pyelogram was performed to try to elucidate the renal pelvis, however the area that opacified looked more tubular, suspicious that it was in the ureter. I attempted to use the wire and the open-ended catheter to manipulate my way into the kidney, but could not convincingly do so. To make sure the stent ended up in good position, I opted to position the wire under direct vision with the ureteroscope. A flexible ureteroscope was advanced over the wire with minimal fluid, trying to minimize any pyelovenous backflow. There was a narrowed area thought to be the UPJ, and beyond this the collecting system opened up. The wire was advanced through the ureteroscope and curled in this area. The ureteroscope was removed and then over the wire a 7 Georgian by 26 cm usp double-J ureteral stent was advanced. The proximal curl was positioned within the collecting system as seen on spot fluoroscopy. The distal curl was visible in the bladder with the cystoscope. At this point all instrumentation was removed. A 16 Georgian Fernandez catheter was placed per urethra. The balloon was inflated with 10 mL of normal saline and the catheter was attached to gravity drainage. The patient was then awakened from anesthesia and was brought to the PACU in stable condition. I attest to the content of the Intraoperative Record and any orders documented therein. Any exceptions are noted below.
[2025-01-26] MEDS: ONDANSETRON INJ 2 MG/ML 2 ML VIAL IV PRN (15:00)
[2025-01-26] MEDS ORDERED: ePHEDrine sulfate 50 MG/ML AMP IV PRN (15:00)
[2025-01-26] MEDS ORDERED: HYDROmorphone INJ 2 MG/ML SYR/VIAL IV PRN (15:00)
[2025-01-26] MEDS ORDERED: PROMETHAZINE HCL 6.25 MG in SODIUM CHLORIDE 0.9% 50 ML IV PRN (15:00)
[2025-01-26] MEDS: fentaNYL citrate PF 100 MCG/2 ML VIAL IV PRN (15:00)
[2025-01-26] MEDS ORDERED: ATROPINE SULFATE 0.1 MG/ML 10ML SYR IV PRN (15:00)
[2025-01-26] MEDS: fentaNYL citrate PF 100 MCG/2 ML VIAL ONE (15:26)
[2025-01-26] MEDS: MAGNESIUM SULFATE / D5W 1 GM/100 ML BAG IV ONE (20:38)
[2025-01-26] MEDS: ALBUMIN 25% 25 GM/100 ML VIAL IV ONE (21:26)
[2025-01-26 22:03] LABS: A calco-baum cmplx NotReported Not Detected (NotDetected); Bact fragilis Not Reported Not Detected (NotDetected); Blood Culture Id Panel See PCR Comment (NotDetected); C auris Not Reported Not Detected (NotDetected); CTX-M Resistant Gene Not Detected (NotDetected); Calbicans Not Reported Not Detected (NotDetected); Candida glabrata Not Reported Not Detected (NotDetected); Candida krusei Not Reported Not Detected (NotDetected); Cneoformans/gatti Not Reported Not Detected (NotDetected); Cparapsilosis Not Reported Not Detected (NotDetected); Ctropicalis Not Reported Not Detected (NotDetected); E cloacae compx Not Reported Not Detected (NotDetected); Efaecalis Not Reported Not Detected (NotDetected); Efaecium Not Reported Not Detected (NotDetected); Enterobacterales DETECTED (NotDetected); Enterobacterales Not Reported DETECTED (NotDetected); Escherichia coli Not Reported Not Detected (NotDetected); H influenzae Not Reported Not Detected (NotDetected); IMP Resistant Gene Not Detected (NotDetected); K aerogenes Not Reported Not Detected (NotDetected); KPC Resistant Gene Not Detected (NotDetected); Koxytoca Not Reported Not Detected (NotDetected); Kpneumoniae grp Not Reported DETECTED (NotDetected); Lmonocyt Not Reported Not Detected (NotDetected); N meningitidis Not Reported Not Detected (NotDetected); NDM Resistant Gene Not Detected (NotDetected); OXA 48 Like Resistant Gene Not Detected (NotDetected); P aeruginosa Not Reported Not Detected (NotDetected); Proteus spp Not Reported Not Detected (NotDetected); Salmonella spp Not Reported Not Detected (NotDetected); Staph lugdunensis Not Reported Not Detected (NotDetected); Staph spp. Not Reported Not Detected (NotDetected); Staphaureus Not Reported Not Detected (NotDetected); Staphepi Not Reported Not Detected (NotDetected); Stenmaltophilia Not Reported Not Detected (NotDetected); Strep agal(GrpB) Not Reported Not Detected (NotDetected); Strep pneum Not Reported Not Detected (NotDetected); Strep pyog (GrpA) Not Reported Not Detected (NotDetected); Strep spp Not Reported Not Detected (NotDetected); VIM Resistant Gene Not Detected (NotDetected); mcr-1 Colistin Resistant Gene Not Detected (NotDetected)
[2025-01-26 22:22] LABS: Klebsiella pneumoniae group DETECTED (NotDetected)
--- NOTE | 2025-01-27 00:14 | XRay Report ---
Exam(s): XR CXR 1 VIEW EXAM: XR Chest, 1 View CLINICAL HISTORY: Reason for exam: low o2. TECHNIQUE: Frontal view of the chest. COMPARISON: Prior chest x-ray from January 24, 2025. FINDINGS: Lungs: Moderate peribronchial thickening of the central and peripheral bronchi with increased reticular nodular interstitial opacities throughout the lungs. No consolidation. Pleural space: Unremarkable. No pneumothorax. Heart: Mild cardiomegaly. Mediastinum: Unremarkable. Normal mediastinal contour. Bones/joints: Unremarkable. No acute fracture. IMPRESSION: Increased interstitial opacities with bronchitis. No evidence of consolidation or pleural effusion. Recommend CT scan of the chest for further evaluation. Electronically signed by: Magaly Jones MD 01/27/25 00:13 AM
[2025-01-27] MEDS: IPRATROPIUM BROMIDE NEB SOLN 0.02% 0.5MG/2.5ML VIAL INH STA ×2 (03:57→23:07)
[2025-01-27] MEDS: LEVALBUTEROL 1.25 MG/3 ML NEB NEB STA ×2 (03:57→23:08)
[2025-01-27 09:04] LABS: Basophils # (auto) 0.04 K/uL (0.00-0.20); Basophils % (auto) 0.4 %; Eosinophils # (auto) 0.24 K/uL (0.00-0.50); Eosinophils % (auto) 2.5 %; Hematocrit (blood only) 30.1 % (37.0-47.0); Hemoglobin 9.6 g/dl (12.0-16.0); Immature Granulocytes # (auto) 0.04 K/uL (0.01-0.20); Immature Granulocytes % (auto) 0.4 %; Lymphocytes # (auto) 1.02 K/uL (1.20-3.40); Lymphocytes % (auto) 10.5 %; Mean Corpuscular Hemoglobin 29.3 pg (25.0-34.0); Mean Corpuscular Hgb Conc 31.9 g/dL (32.0-36.0); Mean Corpuscular Volume 91.8 fL (80.0-100.0); Mean Platelet Volume 10.2 fL (9.4-12.4); Monocytes # (auto) 0.78 K/uL (0.11-0.59); Monocytes % (auto) 8.1 %; Neutrophils # (auto) 7.56 K/uL (1.40-6.50); Neutrophils % (auto) 78.1 %; Platelet Count 184 K/uL (130-400); RDW Coefficient of Variation 14.5 % (11.5-14.5); RDW Standard Deviation 49.1 fL (36.4-46.3); Red Blood Count 3.28 M/uL (4.20-5.40); White Blood Count 9.68 K/ul (4.8-10.8)
[2025-01-27 09:33] LABS: Albumin Globulin Ratio 0.9 (0.9-2); BUN Creatinine Ratio 13.2 (10-20); Bilirubin,Total 0.6 mg/dl (0.2-1.0); Calcium 8.2 mg/dl (8.6-10.3); Creatinine Clr Calc Pharmacy 39.1 ml/min; Globulin 3.2 gm/dl (2.5-4.0); Magnesium 1.8 mg/dl (1.7-2.4); Potassium 3.8 mmol/L (3.5-5.1); Total Protein 6.2 gm/dl (6.0-8.3)
--- NOTE | 2025-01-27 11:33 | Urology Progress Note ---
Date of Service January 27, 2025 Assessment & Plan (1) Ureteral stent retained: (2) Complicated urinary tract infection: (3) UPJ obstruction, acquired: (4) Chronic hypoxic respiratory failure, on home oxygen therapy: Plan 69-year-old female followed by urology for right UPJ obstruction, now s/p upsizing of right ureteral stent on 01/26/2025. Urine of the kidney was turbid and was sent for culture, which is still pending. Would continue broad-spectrum antibiotics, narrowing as culture data becomes available. No plan for additional urologic intervention at this time. If she is encrusting/obstructing stents over the course of 6 weeks, there may be a role for placement of a nephrostomy tube as this could provide more definitive drainage of her kidney, however at this point I think the priority is improving her pulmonary status. Urology will sign off for now. Please call with questions or concerns. Will plan on outpatient follow-up in approximately 1 month as scheduled. Admission and Anticipated Discharge Date Admission Date: January 25, 2025 Subjective Feeling okay, reports that her pain is better but still having shortness of breath Stent exchanged on 01/26/2025, urine culture from kidney is pending. Remains on broad-spectrum antibiotics with Zosyn and daptomycin. Blood culture with Klebsiella in 1 vial. Creatinine improved back towards baseline (1.82 this morning) Physical Exam Physical Exam: Lying in bed, supplemental oxygen by nasal cannula Fernandez catheter draining clear yellow urine in the tube, bag appears somewhat more concentrated. Results & Data Vital Signs (Past 12 Hours) Vital Signs Temp Pulse Resp BP BP Pulse Ox O2 Del Method 01/27/25 11:02 37.4 C 101 H 24 142/70 H 97 Nasal Cannula 01/27/25 10:47 Nasal Cannula 01/27/25 07:22 37.4 C 113 H 18 137/64 94 Nasal Cannula 01/27/25 03:57 104 H 28 H 88 L Nasal Cannula 01/27/25 03:28 37.4 C 102 H 20 153/72 H 91 Room Air O2 Flow Rate 01/27/25 11:02 4.5 01/27/25 10:47 4 01/27/25 07:22 4 01/27/25 03:57 3 01/27/25 03:28 3 PG Care Time/CCT Total # of Minutes Spent Total Time Spent with Patient: Total time spent is greater than 50% in coordination of care (as documented) at patient's floor/unit and/or counseling patient: Coding Level of Care Code 99661 SUB INP/OBS CARE Diagnoses Ureteral stent retained Z96.0 Complicated urinary tract infection N39.0 UPJ obstruction, acquired N13.5 Chronic hypoxic respiratory failure, on home oxygen therapy J96.11; Z99.81
--- NOTE | 2025-01-27 12:12 | CT Scan Report ---
HISTORY: Respiratory distress. TECHNIQUE: CT imaging of the chest was performed Without contrast.. Images are presented in axial, sagittal, and coronal reformats. COMPARISON: None. FINDINGS: Lungs: Severe multifocal airspace opacity involving all lobes of both lungs. There is intralobular septal thickening. Small bilateral pleural effusions, left greater than right. No pneumothorax. The central tracheobronchial tree is patent. Heart/Mediastinum: Mild cardiomegaly. Dense mitral annular calcification. Coronary artery calcifications are present with multivessel disease. Enlarged mediastinal and hilar lymph nodes are nonspecific and may be reactive. Vasculature: Partially included endovascular stent in the right neck. Thoracic esophagus is unremarkable. Main pulmonary artery is normal in caliber. Soft Tissues: Soft tissues of the chest wall are unremarkable. Upper Abdomen: The gallbladder is surgically absent. Bones: Diffuse idiopathic skeletal hyperostosis of the thoracic spine. IMPRESSION: * Mild cardiomegaly with pulmonaryVascular congestion, interstitial pulmonary edema, and small pleural effusions suggesting CHF. Superimposed severe multifocal bilateral groundglass airspace opacity may represent superimposed alveolar pulmonary edema or pneumonia. * Enlarged mediastinal and bilateral hilar lymph nodes are nonspecific and may be reactive. Follow-up chest CT is recommended in 1 to 2 months to ensure resolution. * Additional chronic and/or incidental findings as detailed above. ACT 112: Positive. There are findings on this exam that require communication between the performing entity and the patient following Patient Test Result Information Act ([place] ACT 112) guidelines. Electronically signed by Humberto Gama 01-27-2025 12:12 PM
[2025-01-27 12:17] LABS: D Dimer 1190 ug/L FEU (0-500)
[2025-01-27] MEDS: FUROSEMIDE 40 MG/4 ML VIAL IV ONE (13:29)
--- NOTE | 2025-01-27 13:31 | Electrocardiogram Report ---
Test Reason : Blood Pressure : */* mmHG Vent. Rate : 101 BPM Atrial Rate : 101 BPM P-R Int : 166 ms QRS Dur : 82 ms QT Int : 344 ms P-R-T Axes : 46 19 29 degrees QTcB Int : 446 ms Sinus tachycardia Otherwise normal ECG When compared with ECG of 23-Jan-2025 18:11, No significant change was found Confirmed by Lisandra Langley (Nancy) on 01/27/2025 1:30:53 PM Referred By: REFERRED SELF Confirmed By: Lisandra Langley
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
[2025-01-27 15:07] LABS: Base Excess VBG -0.6 mEq/L; HCO3 VBG 25 mmol/L; Oxygen Saturation VBG 90.5 %; PCO2 VBG 46 mmHg (38-50); PO2 VBG 56 mmHg; pH VBG 7.35 (7.36-7.41)
[2025-01-27] MEDS: DOXYCYCLINE HYCLATE 100 MG CAP PO SCH (20:43)
[2025-01-27] MEDS: METOPROLOL TARTRATE 1 MG/ML VIAL IV STA (23:30)
[2025-01-28 06:23] LABS: Basophils # (auto) 0.04 K/uL (0.00-0.20); Basophils % (auto) 0.4 %; Eosinophils # (auto) 0.38 K/uL (0.00-0.50); Eosinophils % (auto) 3.7 %; Hematocrit (blood only) 30.8 % (37.0-47.0); Hemoglobin 9.8 g/dl (12.0-16.0); Immature Granulocytes # (auto) 0.06 K/uL (0.01-0.20); Immature Granulocytes % (auto) 0.6 %; Lymphocytes # (auto) 1.24 K/uL (1.20-3.40); Mean Corpuscular Hemoglobin 29.8 pg (25.0-34.0); Mean Corpuscular Hgb Conc 31.8 g/dL (32.0-36.0); Mean Corpuscular Volume 93.6 fL (80.0-100.0); Mean Platelet Volume 10.4 fL (9.4-12.4); Monocytes # (auto) 0.84 K/uL (0.11-0.59); Monocytes % (auto) 8.1 %; Neutrophils % (auto) 75.2 %; Platelet Count 184 K/uL (130-400); RDW Coefficient of Variation 14.4 % (11.5-14.5); RDW Standard Deviation 48.7 fL (36.4-46.3); Red Blood Count 3.29 M/uL (4.20-5.40); White Blood Count 10.36 K/ul (4.8-10.8)
[2025-01-28 06:42] LABS: Albumin Globulin Ratio 0.9 (0.9-2); Albumin Level 2.9 gm/dl (3.4-5.0); Bilirubin,Total 0.9 mg/dl (0.2-1.0); Calcium 8.5 mg/dl (8.6-10.3); Creatinine Clr Calc Pharmacy 38.5 ml/min; Globulin 3.3 gm/dl (2.5-4.0); Magnesium 1.6 mg/dl (1.7-2.4); Potassium 3.9 mmol/L (3.5-5.1); Total Protein 6.2 gm/dl (6.0-8.3)
--- NOTE | 2025-01-28 08:05 | Fluoroscopy Report ---
FL retrograde includes kub CLINICAL HISTORY: CYSTO, RT STENT EXCHANGE COMPARISON STUDY: 12/13/2024 FLUOROSCOPY TIME: 31 seconds FLUOROSCOPY IMAGES: 2 EXPOSURE DOSE: 20 mGy FINDINGS: Fluoroscopy was provided for urologic procedure. IMPRESSION: Intraoperative fluoroscopy. ACT 112: Negative or not required by law. Electronically signed by: Isai Westbrook M.D. 01/28/2025 8:04 AM
[2025-01-28] MEDS: FUROSEMIDE 40 MG/4 ML VIAL IV SCH ×2 (08:43→21:12)
[2025-01-28] MEDS: MAGNESIUM SULFATE / D5W 1 GM/100 ML BAG IV SCH (09:43)
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
[2025-01-28] MEDS: ACETAMINOPHEN 1,000 MG/100 ML VIAL IV SCH (10:59)
--- NOTE | 2025-01-28 12:00 | Nuclear Medicine Report ---
NM pul perfusion CLINICAL HISTORY: r/o PE RADIOPHARMACEUTICAL ADMINISTERED: 5.1 mCi technetium 99m for the perfusion lung study. COMPARISON STUDY: Chest CT yesterday FINDINGS: Only the frontal and posterior perfusion images were obtained. The patient refused further imaging. There is decreased perfusion of the right upper and mid lung compared to the left. No other large pleural-based perfusion defect is seen. IMPRESSION: Limited exam with intermediate probability of pulmonary embolism. ACT 112: Negative or not required by law. Electronically signed by: Isai Westbrook M.D. 01/28/2025 11:59 AM
--- NOTE | 2025-01-28 12:02 | Cardiology Consultation ---
Date of Consultation January 28, 2025 Assessment & Plan (1) Acute hypoxemic respiratory failure: (2) Acute on chronic diastolic heart failure: (3) Volume overload: (4) Sinus tachycardia: Plan Complex 69-year-old female readmitted to [facility] January 23, 2025 after presenting to the ER with acute on chronic dyspnea, without supplemental oxygen due to power outage, subsequently developing complicated UTI and sepsis with observed fevers and hypotension. Prior to arrival diuretic (furosemide 60 mg BID) held. Patient's status post January 26, 2025 cystoscopy, right sided stent exchange. I/O's +7 L prior to developing acute on chronic dyspnea on 01/26/2025. Imaging with mild cardiomegaly, pulmonary vascular congestion, interstitial edema, small pleural effusions with possible superimposed alveolar pulmonary edema or pneumonia, enlarged mediastinal and bilateral hilar lymph nodes. Patient received 40 mg IV furosemide on 01/27 and again on 01/28 with resultant -3 L fluid balance and improvement in dyspnea. Recommendations: * Agree with IV furosemide. Patient will likely require 1-2 days of IV diuresis before being transitioned back to her prior to arrival dose of furosemide which was 60 mg twice a day. * Continue supplemental oxygen. * Utilize CPAP therrapy at night and when napping during the day. * Add low dose beta-rey therapy with metoprolol succinate 12.5 mg/day * Refer for resting echocardiography once hypervolemia resolved and heart rate controlled. Supervising Physician Co-Signing Physician Notes Attending attestation: Case reviewed with the advanced practitioner. I have personally performed a history and physical examination on the patient. I have reviewed the advanced practitioner's documentation on the date of service referenced in note, and I agree with, and take responsibility for the plan of care. Renal function improving. Continue IV furosemide with noted ongoing significant output from IV antibiotics. I spent a total of 25 minutes coordinating, documenting, and providing care for this patient excluding time spent in the performance of separately billed services or time spent by another provider. Kedar Cevallos DO History of Present Illness Reason for Consultation: CHF -need for diuresis with kidney disease Requesting Physician: Dr. Oxana Dean MD Attending Physician: Dr. Oxana Dean MD History of Present Illness Complex 69-year-old female admitted to [facility] November 2024 with a UTI, right ureter stent exchange on December 13, 2024. Patient readmitted to [facility] January 23, 2025 after presenting to the ER with acute on chronic dyspnea, without supplemental oxygen due to power outage, subsequently developing complicated UTI and sepsis with observed fevers and hypotension. Prior to arrival diuretic (furosemide 60 mg BID) held. Patient's status post January 26, 2025 cystoscopy, right sided stent exchange. Acute on chronic dyspnea observed overnight on 01/26/2025. Imaging of the chest with mild cardiomegaly, pulmonary vascular congestion, interstitial edema, small pleural effusions with possible superimposed alveolar pulmonary edema or pneumonia, enlarged mediastinal and bilateral hilar lymph nodes. I/O's +7 L prior to receiving 40 mg IV furosemide on 01/27 and 01/28 with resultant -3 L I/O balance Patient seen and examined. Chart, medications, telemetry reviewed. Patient reiterates the reason she came to the hospital was being without supplemental oxygen. She describes diffuse pain. Breathing has improved following IV furosemide. No chest pain. 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 dose 60 mg BID) Hypertension Dyslipidemia Mild mitral stenosis due to severe calcification via TTE in 2022 Interstitial lung disease, chronic oxygen dependency on 2 to 4 L oxygen at baseline, Obstructive sleep apnea, CPAP therapy Diabetes mellitus Chronic kidney disease Hypothyroidism Fibromyalgia History of PE, DVT, status post filter Continue Eliquis for anticoagulation Allergies Allergy/AdvReac Type Severity Reaction Status Date / Time morphine Allergy Severe Swelling, Verified 01/23/25 19:13 "Violent reaction- almost " dapagliflozin [From Farxiga] Allergy Intermediate Yeast Verified 01/23/25 19:13 infections tetanus toxoid, adsorbed Allergy Intermediate Passed Verified 01/23/25 19:13 out, "got sick" as child bupropion [From Wellbutrin] AdvReac Intermediate Recurrent Verified 01/23/25 19:13 falls as per patient codeine AdvReac Intermediate Hallucinati Verified 01/23/25 19:13 ons empagliflozin AdvReac Intermediate Yeast Verified 01/23/25 19:13 [From Jardiance] infections heparin AdvReac Intermediate HIT, Verified 01/23/25 19:13 "Fluid in lungs" hydrocodone [From Vicodin] AdvReac Intermediate Drowsy Verified 01/23/25 19:13 Home Medications Medication Instructions Recorded Confirmed Type aspirin 81 mg tablet,delayed 81 mg PO QAM 12/26/23 04/30/25 History release clonazepam 0.5 mg tablet 0.5 mg PO TID 09/20/23 01/23/25 History furosemide 40 mg tablet 60 mg PO BID 09/20/23 01/23/25 History magnesium oxide 400 mg (241.3 mg 400 mg PO BID 09/20/23 01/23/25 History magnesium) tablet omeprazole 20 mg capsule,delayed 20 mg PO QAM 09/20/23 01/23/25 History release potassium chloride 20 mEq 20 meq PO BID 09/20/23 01/23/25 History tablet,extended release(part/cryst) ropinirole 2 mg tablet 2 mg PO HS 09/20/23 01/23/25 History sennosides 8.6 mg-docusate sodium 1 tab PO BID 09/20/23 01/23/25 History 50 mg tablet (Senna-Time S) tramadol 50 mg tablet 50 mg PO Q8 PRN Pain 09/20/23 01/23/25 History apixaban 2.5 mg tablet (Eliquis) 2.5 mg PO BID 10/24/23 01/23/25 History dicyclomine 20 mg tablet 20 mg PO QID PRN abdominal cramping 10/24/23 01/23/25 History levothyroxine 200 mcg tablet 200 mcg PO DAILYBB #30 tabs 12/07/23 01/23/25 Rx cholecalciferol (vitamin D3) 25 25 mcg PO QAM 01/16/24 01/23/25 History mcg (1,000 unit) tablet clopidogrel 75 mg tablet 75 mg PO QAM 01/16/24 01/23/25 History duloxetine 60 mg capsule,delayed 60 mg PO QAM 12/09/24 01/23/25 History release fluticasone propionate 50 2 spray intranasal AMHS 12/09/24 01/23/25 History mcg/actuation nasal spray,suspension gabapentin 300 mg capsule 300 mg PO AMHS 12/09/24 01/23/25 History insulin aspart U-100 100 unit/mL See Rx Instructions .Route .COMPLEX 12/09/24 01/23/25 History (3 mL) subcutaneous pen (Novolog FlexPen U-100 Insulin aspart) insulin degludec 100 unit/mL (3 41 unit subcut QPM 12/09/24 01/23/25 History mL) subcutaneous pen (Tresiba FlexTouch U-100 insulin) rosuvastatin 5 mg tablet 5 mg PO QAM 12/09/24 01/23/25 History tizanidine 4 mg tablet 4 mg PO Q6 PRN Muscle Spasm 12/09/24 01/23/25 History trazodone 50 mg tablet 50 mg PO HS 12/09/24 01/23/25 History tamsulosin 0.4 mg capsule 0.4 mg PO HS #30 caps 12/14/24 01/23/25 Rx Lactobacillus acidoph-L.bulgaricus 1 tab PO QPM 01/23/25 01/23/25 History 1 million cell tablet (Floranex) Patient History Medical History Bilateral flank pain Acute kidney injury superimposed on chronic kidney disease Leukocytosis Hydronephrosis History of pulmonary embolism 2008 s/p zoraida filter History of DVT (deep vein thrombosis) 2008 (during ICU [place] admission/PNA) Subclavian arterial stenosis (06/2023) Cerebrovascular duplex study 06/2023: Retrograde flow in the right vertebral artery. 50-69% proximal right subclavian artery stenosis. Antegrade flow in the left vertebral artery. Normal flow in the left subclavian artery. Hx of pulmonary edema Pickwickian syndrome Orthostasis Lumbago with sciatica Left knee DJD Hx of hydronephrosis Hyperlipemia Hypertension HIT (heparin-induced thrombocytopenia) (2008) hx - [facility] then life flight to [place] > "resolved" Deep vein thrombosis (DVT) Recurrent per records On Eliquis Initially occurred during ICU [place] admission, s/p zoraida filter [address] Right LE doppler 11/2023 showed no DVT within right LE Hepatosplenomegaly Hx of fracture radius Depression with anxiety Chronic diastolic (congestive) heart failure follos with Dr. 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) VRE UTI during inpatient admit at [facility] Hx of Clostridium difficile infection (12/2023) during inpatient admit to [facility], treated, no current sx Hx of constipation Hx of vertigo occasional Hx: UTI (urinary tract infection) frequent Hx of fall (11/2023) last fall was November 2023 - no injuries Diabetes IDDM ELISSA on CPAP CPAP + 3L O2 (O2 is continuous) Hx of septic shock (12/2023) due to UTI - admit to [facility] Presence of IVC filter (2008) [facility], continues to be in place due to current clots behind right knee Hx pulmonary embolism (2008) s/p zoraida filter GERD (gastroesophageal reflux disease) RLS (restless legs syndrome) History of pneumonia (2008) x 8 weeks, [facility] then tx to [facility], "put me in a coma, flew me to [facility], had a trach then went to custodial with trach" Trach removed Sep 2009 Fibromyalgia Hypothyroidism Hx of pyelonephritis (12/2023) CKD (chronic kidney disease), stage III follows [facility] Nephrology Hx of congestive heart failure takes lasix, sees Dr. Jose C Garcia Chronic hypoxemic respiratory failure O2 3-4L at all times - sees Pulm @ [facility] Transient hypotension Mitral valve stenosis Mild per cardio records (due to severe calcification) Echo 06/2023: Borderline mild mitral stenosis secondary to severe mitral annular calcification, follows [facility] cardio Dr. Woodall Cataract, bilateral Neuropathy feet On home oxygen therapy 3-4L continuous Surgical History History of colon resection (2008) secondary to R colon perforation, resected treated with colostomy and eventual reversal in 2008 Hx of tracheostomy (06/2009) (per [facility] records), secondary to acute respiratory failure in setting of PNA, reversed a few months later in 2009 Hx of cystoscopy (11/25/23) with stent placement right side due to infection History of transcarotid artery revascularization (TCAR) (08/2023) right, [facility] History of right knee joint replacement (Unknown) > 10 years Hx laparoscopic cholecystectomy Hx of thyroidectomy (2011) total Family history of reaction to anesthesia Brother/niece- PONV Brother- "wakes up violent" History of colostomy reversal (10/1997) History of tooth extraction History of arthroscopy (Unknown) left ankle , > 10 years History of incisional hernia repair Nausea and vomiting after administration of anesthetic agent History of colonoscopy Family History Father , age 74 Lung cancer Mother , age 45 Cirrhosis Social History Smoking Status: Never smoker Tobacco Type: Cigarettes Cigarettes Per Day: 1996; Second Hand Exposure: No; Do You Dip or Chew Tobacco: No; Hx Alcohol Use: No Hx Substance Use: No Preferred Language: [place] Communication Ability: Effective Glue Plant Operator Required: No Beliefs That Will Affect Care: None marital status: Single Current Living Situation: Alone Current Living Situation Comment: Lives by self in apartment How many Children do You have: 0 Feels Safe at Home: Yes Safety Concerns: Feels Safe At This Time Assistive Devices: Oxygen - Continuous and Walker Review of Systems Review of Systems: Complete Review of Systems is as stated above, negative, or noncontributory. Physical Exam Physical Exam: General: NAD. Elevated BMI HENT: Normocephalic. Atraumatic. Eyes: PER. Conjunctiva pink, sclera clear. Neck: Neck veins not appreciated. Heart: Regular at 110 bpm. Grade II/ systolic murmur. No diastolic murmur appreciated. Lungs: Scattered rales. No wheeze. Abdomen: +BS. Soft. Nontender. No masses or organomegaly. Extremities: 1+ edema. No cyanosis Limited neurological examination is without focal deficits. Results & Data Vital Signs (Past 12 Hours) Vital Signs Temp Pulse Pulse Resp BP Pulse Ox O2 Del Method 01/28/25 08:00 88 01/28/25 07:18 37.4 C 99 H 20 150/78 H 93 Nasal Cannula 01/28/25 02:39 36.4 C L 79 18 136/65 98 Nasal Cannula O2 Flow Rate 01/28/25 08:00 01/28/25 07:18 4 01/28/25 02:39 5.0 Laboratory Results Cardiac Enzymes 01/28/25 Range/Units 05:45 AST 13 (13-39) U/L CBC 01/28/25 Range/Units 05:45 WBC 10.36 (4.8-10.8) K/ul RBC 3.29 L (4.20-5.40) M/uL Hgb 9.8 L (12.0-16.0) g/dl Hct 30.8 L (37.0-47.0) % Plt Count 184 (130-400) K/uL Neut # (Auto) 7.80 H (1.40-6.50) K/uL Lymph # (Auto) 1.24 (1.20-3.40) K/uL Corson # (Auto) 0.84 H (0.11-0.59) K/uL Eos # (Auto) 0.38 (0.00-0.50) K/uL Baso # (Auto) 0.04 (0.00-0.20) K/uL Comprehensive Metabolic Panel 01/28/25 Range/Units 05:45 Sodium 138 (136-145) mmol/L Potassium 3.9 (3.5-5.1) mmol/L Chloride 102 (98-107) mmol/L Carbon Dioxide 31 (21-32) mmol/L BUN 22 (6-23) mg/dl Creatinine 1.83 H (0.6-1.2) mg/dl Glucose 136 H (70-99(Fasting)) mg/dl Calcium 8.5 L (8.6-10.3) mg/dl AST 13 (13-39) U/L ALT 13 (7-52) U/L Alkaline Phosphatase 74 (34-104) U/L Total Protein 6.2 (6.0-8.3) gm/dl Albumin 2.9 L (3.4-5.0) gm/dl Intake and Output 01/27/25 01/28/25 01/28/25 22:59 06:59 14:59 Intake Total 780 / 1380 400 / 1380 200 / 200 Output Total 3225 / 3725 500 / 3725 Balance -2445 / -2345 -100 / -2345 200 / 200 Intake: IV 200 / 500 100 / 500 200 / 200 Acetaminophen 1,000 mg In 100 100 / 200 100 / 100 ml @ 400 mls/hr IV Q8H ROBERT Rx#: [id number] Magnesium Sulfate / D5w 1 gm In 100 / 100 100 ml @ 50 mls/hr IV Q2H ROBERT Rx#:[id number] Piperacillin/Tazobactam 4.5 gm 100 / 300 100 / 300 In 100 ml @ 25 mls/hr IV Q8H ROBERT Rx#:[id number] Oral 580 / 880 300 / 880 Output: Urine Amount (Catheter) 3225 / 3725 500 / 3725 Fernandez/Indwelling 3225 / 3725 500 / 3725 Other: Weight 124.9 kg Weight Measurement Method Built in [facility] Diagnostic Findings January 27, 2025 EKG: Sinus tachycardia 101 bpm. Telemetry: Sinus/sinus tachycardia, heart rates ranging from 85 bpm to 120 bpm. No overt atrial fibrillation.
--- NOTE | 2025-01-28 12:20 | Hospitalist Progress Note ---
Date of Service January 28, 2025 Assessment & Plan (1) Chronic hypoxic respiratory failure, on home oxygen therapy: Plan Patient is 69-year-old female with PMH significant for DM II, HTN, HLD, CAD, chronic HFpEF, CKD III, chronic hypoxic respiratory failure on 2 L O2 at rest and 4L with ambulation, ILD, sleep apnea, obesity, postsurgical hypothyroidism, history HIT, depression, anxiety, history of recurrent DVT and PE, s/p IVC filter who presented to ER with complaint of being out of oxygen secondary to power outage x 1 day. Her oxygen supplier was unable to bring her oxygen tanks. In ER placed on her normal home O2 at 2L with O2 sat 96% and no further SOB reported. Denies CP Continue home supplemental oxygen On 2-3L NC while resting and 4L NC while ambulating per baseline Power restored at home on 01/24 but pt now being treated for urosepsis and CHF. Acute on Chronic diastolic CHF Possible Pneumonia Acute on Chronic Respiratory Failure Pt with increased work of breathing overnight on 01/26 Chest XRAY at the time noting "Increased interstitial opacities with bronchitis" recommending CT followup CT Chest wo contrast ordered and concerning for CHF and possible pneumonia BNP elevated D-dimer elevated, given kidney disease, V/Q scan ordered for followup (Eliquis has been occasionally on hold) Pt currently on Zosyn (also dapto which does not penetrate the lung for urosepsis), added doxycycline, MRSA nares negative Creatinine improving, pt given one dose of IV Lasix 40mg- continue to hold home lasix 60mg BID Cautious use of diuretics nephrology and cardiology consulted appreciate recs -IV Lasix 40mg BID at this time Monitor Is and Os Daily weights Continue to monitor Urosepsis Complicated UTI Recent hospitalization 12/09/2024-12/14/2024 for UTI, right ureteral stent exchange on 12/13/2024 by urology, negative blood cultures, final urine culture with more than 3 types of organisms present and had received 5 days IV cefepime and daptomycin. Patient reports chronic urinary frequency and chronic lower abdominal pressure and feels this is at baseline. UA on admission negative, urine Cx from admission no significant growth repeat UA on January 24 suggestive of infection, January 24 urine Cx no significant growth Blood Cx from admission growing Klebsiella in 1/[address] abd/pelvis noting stable urological changes and findings suggestive of an acute infection On IV Zosyn and Daptomycin Urology consulted, appreciate recs -s/p R stent exchange on 01/26, urine Cx from the kidney obtained intraop growing Klebsiella and Proteus Pt still with fever spikes and tachycardia post- source control on 01/26--- will repeat blood cultures Infectious Disease consulted, appreciate further recs from 01/28 -d/c Zosyn and Dapto -transition to Unasyn with EOT date of 02/07/25. Can transition to Augmentin for discharge DM II Insulin dependent A1c: 6.8 on 12/10/24 Chronic, stable. Continue basal bolus insulin. Will reduce home dose long-acting insulin as pt required less during prior hospital admissions. Will monitor and further adjust History of PE, recurrent DVTs S/P IVC filter D-dimer elevated, given kidney disease, V/Q scan ordered for followup (Eliquis has been occasionally on hold) V/Q scan noting intermediate probability of PE Doppler US ordered of lower extremities Continue Eliquis at this time at 2.5mg BID due to renal disease, noted allergies to heparin. consider transitioning to warfarin History R TCAR on 09/06/[address] Tang Continue aspirin, Plavix Acute on CKD stage III Cr: 1.9. Baseline creatinine ~1.8 Nephrology consult as above given need for increased diuresis HLD Continue rosuvastatin Fibromyalgia Continue duloxetine and gabapentin. Depression, anxiety Chronic, stable. Continue clonazepam, duloxetine RLS Continue ropinirole. Hypothyroidism Continue levothyroxine. GERD Continue pantoprazole. DVT Prophylaxis On Eliquis Full Code as per discussion with pt Follows with Dr Andujar for routine care Admission and Anticipated Discharge Date Admission Date: January 25, 2025 Subjective Pt was seen in 205 Stated that she hurt all over Asking for pain meds at the time Fever last evening Review of Systems Review of Systems: All systems reviewed & are unremarkable except as noted in Subjective Physical Exam Physical Exam: General: Alert, oriented. HEENT: NC/AT CV: RRR Resp: increased work of breathing, wheezy Abdomen:Soft, tender in RLQ Extremities: edema in lower extremities bilaterally. Results & Data Results & Data Vital Signs (Past 12 Hours) Vital Signs Temp Pulse Pulse Resp BP Pulse Ox O2 Del Method 01/28/25 08:00 88 01/28/25 07:18 37.4 C 99 H 20 150/78 H 93 Nasal Cannula 01/28/25 02:39 36.4 C L 79 18 136/65 98 Nasal Cannula O2 Flow Rate 01/28/25 08:00 01/28/25 07:18 4 01/28/25 02:39 5.0
--- NOTE | 2025-01-28 14:32 | Infectious Disease Consult ---
Date of Service January 28, 2025 Telehealth Information I performed this visit using a real-time telehealth connection between my location and the patients location ([facility]). After connecting through interactive tele-video, patient was identified by name and date of and/or wristband check.Patient (or authorized healthcare sales representative business courses) was informed that this was a telemedicine visit and it was being conducted confidentially over secure lines. My office door was closed and no one else was present in the room with me.Patient (or authorized healthcare sales representative business courses) provided consent to proceed with the visit, expressed an understanding of privacy and security of the telemedicine visit, and gave permission to have a hospital sales representative business courses in the room in order to assist with the visit and to conduct portions of the visit, as needed. I informed the patient (or authorized healthcare sales representative business courses) that I reviewed their record and presented the opportunity for them to ask any questions regarding the visit today. The patient agreed to participate. Assessment & Plan (1) Bacteremia due to Gram-negative bacteria: Plan: KPN bacteremia Acute pyelonephritis w/ R ureteral stent for known hydronephrosis Morbid obesity Hx of CKD III, DM2, ILD w/ chronic hypoxic resp failure on 2-4 liters of O2 01/26/25 upsized R urenteral stent - Stop daptomycin iv - Stop zosyn - Start ampicillin/sulbactam 3 gm iv q8 hours to continue while inpatient - When ready for hospital discharge, may switch to augmentin 875 mg/125 mg po q8 hours (given morbid obesity; take w/ food) to complete rest of the abx therapy: last dose of abx on 02/07/25. - ID signing off During this patient encounter, one or more of the following was provided in addition to my in person visit: disease transmission risk assessment and mitigation; public health investigation, analysis, and testing; and/or complex antimicrobial therapy counseling and treatment. I spent a total of 83 minutes coordinating, documenting, and providing care for this patient excluding time spent in the performance of separately billed services or time spent by another provider/QHP. (2) Acute pyelonephritis: History of Present Illness History of Present Illness This is a morbidly obese 69 y/o obese female (Stephanie) w/ hx of ureteral stent (R ureteral stent exchnaged on 12/13/24), DM II, CKD III, chronic HFpEF w/ HTN and CAD, ILD w/ chronic hypoxic resp failure on 2-4 liters of O2, HIT, recurrent DVT and PE on eliquis s/p IVC filter and depression, who prsented on 01/23/25 for acute respiratory failure w/ power outage x1 days, not being able to use the O2 supplement. Noted to have leukocytosis on 01/25/25 w/ fever on 01/24-01/27/25 w/ pyuria and positive blood (KPN) and urine (KPN and P mirabilis) cultures. upsized the R ureteral stent (01/26/25). She is currently resting comfortably in bed in sitting position. She feels better overall although she has chronic pain from her fibromyalgia. No f/c, n/v, abd pain, chest pain, diarrhea, excessive coughing, or sob other than her usual. Currently on 4 liter O2 via NC and abdalla w/ clear urine. Allergies Allergy/AdvReac Type Severity Reaction Status Date / Time morphine Allergy Severe Swelling, Verified 01/23/25 19:13 "Violent reaction- almost " dapagliflozin [From Farxiga] Allergy Intermediate Yeast Verified 01/23/25 19:13 infections tetanus toxoid, adsorbed Allergy Intermediate Passed Verified 01/23/25 19:13 out, "got sick" as child bupropion [From Wellbutrin] AdvReac Intermediate Recurrent Verified 01/23/25 19:13 falls as per patient codeine AdvReac Intermediate Hallucinati Verified 01/23/25 19:13 ons empagliflozin AdvReac Intermediate Yeast Verified 01/23/25 19:13 [From Jardiance] infections heparin AdvReac Intermediate HIT, Verified 01/23/25 19:13 "Fluid in lungs" hydrocodone [From Vicodin] AdvReac Intermediate Drowsy Verified 01/23/25 19:13 Home Medications Medication Instructions Recorded Confirmed Type aspirin 81 mg tablet,delayed 81 mg PO QAM 09/20/23 01/23/25 History release clonazepam 0.5 mg tablet 0.5 mg PO TID 09/20/23 01/23/25 History furosemide 40 mg tablet 60 mg PO BID 09/20/23 01/23/25 History magnesium oxide 400 mg (241.3 mg 400 mg PO BID 09/20/23 01/23/25 History magnesium) tablet omeprazole 20 mg capsule,delayed 20 mg PO QAM 09/20/23 01/23/25 History release potassium chloride 20 mEq 20 meq PO BID 09/20/23 01/23/25 History tablet,extended release(part/cryst) ropinirole 2 mg tablet 2 mg PO HS 09/20/23 01/23/25 History sennosides 8.6 mg-docusate sodium 1 tab PO BID 09/20/23 01/23/25 History 50 mg tablet (Senna-Time S) tramadol 50 mg tablet 50 mg PO Q8 PRN Pain 09/20/23 01/23/25 History apixaban 2.5 mg tablet (Eliquis) 2.5 mg PO BID 10/24/23 01/23/25 History dicyclomine 20 mg tablet 20 mg PO QID PRN abdominal cramping 10/24/23 01/23/25 History levothyroxine 200 mcg tablet 200 mcg PO DAILYBB #30 tabs 12/07/23 01/23/25 Rx cholecalciferol (vitamin D3) 25 25 mcg PO QAM 01/16/24 01/23/25 History mcg (1,000 unit) tablet clopidogrel 75 mg tablet 75 mg PO QAM 01/16/24 01/23/25 History duloxetine 60 mg capsule,delayed 60 mg PO QAM 12/09/24 01/23/25 History release fluticasone propionate 50 2 spray intranasal AMHS 12/09/24 01/23/25 History mcg/actuation nasal spray,suspension gabapentin 300 mg capsule 300 mg PO AMHS 12/09/24 01/23/25 History insulin aspart U-100 100 unit/mL See Rx Instructions .Route .COMPLEX 12/09/24 01/23/25 History (3 mL) subcutaneous pen (Novolog FlexPen U-100 Insulin aspart) insulin degludec 100 unit/mL (3 41 unit subcut QPM 12/09/24 01/23/25 History mL) subcutaneous pen (Tresiba FlexTouch U-100 insulin) rosuvastatin 5 mg tablet 5 mg PO QAM 12/09/24 01/23/25 History tizanidine 4 mg tablet 4 mg PO Q6 PRN Muscle Spasm 12/09/24 01/23/25 History trazodone 50 mg tablet 50 mg PO HS 12/09/24 01/23/25 History tamsulosin 0.4 mg capsule 0.4 mg PO HS #30 caps 12/14/24 01/23/25 Rx Lactobacillus acidoph-L.bulgaricus 1 tab PO QPM 01/23/25 01/23/25 History 1 million cell tablet (Floranex) Patient History Medical History Bilateral flank pain Acute kidney injury superimposed on chronic kidney disease Leukocytosis Hydronephrosis History of pulmonary embolism 2008 s/p zoraida filter History of DVT (deep vein thrombosis) 2008 (during ICU [facility] admission/PNA) Subclavian arterial stenosis (06/2023) Cerebrovascular duplex study 06/2023: Retrograde flow in the right vertebral artery. 50-69% proximal right subclavian artery stenosis. Antegrade flow in the left vertebral artery. Normal flow in the left subclavian artery. Hx of pulmonary edema Pickwickian syndrome Orthostasis Lumbago with sciatica Left knee DJD Hx of hydronephrosis Hyperlipemia Hypertension HIT (heparin-induced thrombocytopenia) (2008) hx - [facility] then life flight to [facility] > "resolved" Deep vein thrombosis (DVT) Recurrent per records On Eliquis Initially occurred during ICU [facility] admission, s/p zoraida filter [address] Right LE doppler 11/2023 showed no DVT within right LE Hepatosplenomegaly Hx of fracture radius Depression with anxiety Chronic diastolic (congestive) heart failure follos with Dr. 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) VRE UTI during inpatient admit at [facility] Hx of Clostridium difficile infection (12/2023) during inpatient admit to [facility], treated, no current sx Hx of constipation Hx of vertigo occasional Hx: UTI (urinary tract infection) frequent Hx of fall (11/2023) last fall was November 2023 - no injuries Diabetes IDDM ELISSA on CPAP CPAP + 3L O2 (O2 is continuous) Hx of septic shock (12/2023) due to UTI - admit to [facility] Presence of IVC filter (2008) [facility], continues to be in place due to current clots behind right knee Hx pulmonary embolism (2008) s/p zoraida filter GERD (gastroesophageal reflux disease) RLS (restless legs syndrome) History of pneumonia (2008) x 8 weeks, [facility] then tx to [facility], "put me in a coma, flew me to [place], had a trach then went to [facility] with trach" Trach removed Sep 2009 Fibromyalgia Hypothyroidism Hx of pyelonephritis (12/2023) CKD (chronic kidney disease), stage III follows [facility] Nephrology Hx of congestive heart failure takes lasix, sees Dr. Jose C Garcia Chronic hypoxemic respiratory failure O2 3-4L at all times - sees Pulm @ [facility] Transient hypotension Mitral valve stenosis Mild per cardio records (due to severe calcification) Echo 06/2023: Borderline mild mitral stenosis secondary to severe mitral annular calcification, follows [facility] cardio Dr. Woodall Cataract, bilateral Neuropathy feet On home oxygen therapy 3-4L continuous Surgical History History of colon resection (2008) secondary to R colon perforation, resected treated with colostomy and eventual reversal in 2008 Hx of tracheostomy (06/2009) (per [facility] records), secondary to acute respiratory failure in setting of PNA, reversed a few months later in 2009 Hx of cystoscopy (11/25/23) with stent placement right side due to infection History of transcarotid artery revascularization (TCAR) (08/2023) right, [facility] History of right knee joint replacement (Unknown) > 10 years Hx laparoscopic cholecystectomy Hx of thyroidectomy (2011) total Family history of reaction to anesthesia Brother/niece- PONV Brother- "wakes up violent" History of colostomy reversal (10/1997) History of tooth extraction History of arthroscopy (Unknown) left ankle , > 10 years History of incisional hernia repair Nausea and vomiting after administration of anesthetic agent History of colonoscopy Family History Father , age 74 Lung cancer Mother , age 45 Cirrhosis Social History Smoking Status: Never smoker Tobacco Type: Cigarettes Cigarettes Per Day: 1996; Second Hand Exposure: No; Do You Dip or Chew Tobacco: No; Hx Alcohol Use: No Hx Substance Use: No Preferred Language: [place] Communication Ability: Effective Buckle Stringer Required: No Beliefs That Will Affect Care: None marital status: Single Current Living Situation: Alone Current Living Situation Comment: Lives by self in apartment How many Children do You have: 0 Feels Safe at Home: Yes Safety Concerns: Feels Safe At This Time Assistive Devices: Oxygen - Continuous and Walker Review of Systems as HPI and all others negative Physical Exam Gen: no acute distress Lungs: breathing comfortably on NC (4 liters O2) Neuro: alert & oriented x3 : abdalla w/ clear urine Results & Data Vital Signs (Past 12 Hours) Vital Signs Temp Pulse Pulse Resp BP Pulse Ox O2 Del Method 01/28/25 11:00 39.3 C H 112 H 19 142/72 H 92 Nasal Cannula 01/28/25 08:00 88 01/28/25 07:18 37.4 C 99 H 20 150/78 H 93 Nasal Cannula 01/28/25 02:39 36.4 C L 79 18 136/65 98 Nasal Cannula O2 Flow Rate 01/28/25 11:00 4 01/28/25 08:00 01/28/25 07:18 4 01/28/25 02:39 5.0 Laboratory Results WBC 10.36K H 9.8 Plt 184K Cr 1.83 LFT unremarkable D-dimer 119[address] Cr[address] A/P: 1. No change in moderate to severe right hydroureteronephrosis. Right ureteral stent in place. No urinary calculi. 2. Mild right perinephric stranding and a small amount of fluid, a nonspecific finding. This could be correlated with urinalysis. 3. No bowel obstruction. Normal appendix. No bowel wall thickening on unenhanced exam. CT chest: * Mild cardiomegaly with pulmonaryVascular congestion, interstitial pulmonary edema, and small pleural effusions suggesting CHF. Superimposed severe multifocal bilateral groundglass airspace opacity may represent superimposed alveolar pulmonary edema or pneumonia. * Enlarged mediastinal and bilateral hilar lymph nodes are nonspecific and may be reactive. Diagnostic Findings MRSA screen: neg Blood cx (01/24): KPN (1 of 2) UA (01/24): pos nit, 3+ LE, >50 WBC. 4+ bacteria U cx (01/26): KPN (R to nitro; S to rest), P mirabilis ([facility] S) Blood cx (01/27): NGTD Medications Administered Zosyn 01/24- Daptomycin 01/24-
--- NOTE | 2025-01-28 16:35 | Ultrasound Report ---
EXAM: US venous doppler LE CLINICAL HISTORY: R/O DVT. TECHNIQUE: Ultrasound examination of bilateral lower extremity veins was performed in real time and duplex. One or more of the following were performed- spectral analysis, resistive index, waveform analysis, and pulsed Doppler. COMPARISON: compared to the previous study dated 12/10/2024. FINDINGS: Normal phasic, non-pulsatile and spontaneous flow is noted in the bilateral common femoral, superficial femoral, popliteal and posterior tibial and peroneal veins. Visualized veins of both lower extremities demonstrate normal compressibility. No sonographic evidence of acute deep vein thrombosis (DVT) is detected in the visualized veins of both lower extremities. Compression and Augmentation: All evaluated veins compress fully with applied transducer pressure. Augmentation of venous flow is noted with distal compression. Additional Findings: No evidence of intraluminal thrombus. IMPRESSION: No sonographic evidence of acute DVT was detected in the bilateral common femoral, superficial femoral, popliteal and posterior tibial, and peroneal veins at the time of examination. stable Disclaimer: DVT could be missed early in the disease when clot burden is minimal. For patients with moderate and high pretest probability of DVT and negative ultrasound, the [place] [employer] clinical guidelines recommend testing with a D-dimer assay or repeat ultrasound in 5-7 days. If symptoms worsen, the Society of radiologists in ultrasound recommends repeating ultrasound even earlier. Electronically signed by Sonny Claudio 01-28-2025 4:35 PM
[2025-01-28] MEDS: AMPICILLIN/SULBACTAM SOD 3,000 MG/100 ML BAG IV SCH (17:07)
[2025-01-29 05:44] LABS: Basophils # (auto) 0.05 K/uL (0.00-0.20); Basophils % (auto) 0.5 %; Eosinophils # (auto) 0.59 K/uL (0.00-0.50); Hematocrit (blood only) 30.7 % (37.0-47.0); Hemoglobin 9.6 g/dl (12.0-16.0); Immature Granulocytes # (auto) 0.09 K/uL (0.01-0.20); Immature Granulocytes % (auto) 0.9 %; Lymphocytes % (auto) 10.1 %; Mean Corpuscular Hgb Conc 31.3 g/dL (32.0-36.0); Mean Corpuscular Volume 92.7 fL (80.0-100.0); Mean Platelet Volume 10.3 fL (9.4-12.4); Monocytes # (auto) 0.79 K/uL (0.11-0.59); Neutrophils # (auto) 7.39 K/uL (1.40-6.50); Neutrophils % (auto) 74.5 %; Platelet Count 231 K/uL (130-400); Red Blood Count 3.31 M/uL (4.20-5.40); White Blood Count 9.91 K/ul (4.8-10.8)
[2025-01-29 06:00] LABS: Albumin Globulin Ratio 0.9 (0.9-2); Albumin Level 2.9 gm/dl (3.4-5.0); BUN Creatinine Ratio 12.2 (10-20); Bilirubin,Total 0.7 mg/dl (0.2-1.0); Calcium 8.7 mg/dl (8.6-10.3); Globulin 3.3 gm/dl (2.5-4.0); Magnesium 1.7 mg/dl (1.7-2.4); Phosphorus 2.6 mg/dl (2.5-4.9); Potassium 3.3 mmol/L (3.5-5.1); Total Protein 6.2 gm/dl (6.0-8.3)
[2025-01-29] MEDS: METOPROLOL SUCC 25MG EXT REL TAB PO SCH (08:06)
[2025-01-29] MEDS: POTASSIUM CHLORIDE CRTAB 20 MEQ TABCR PO STA (08:24)
--- NOTE | 2025-01-29 10:14 | Nephrology Progress Note ---
Date of Service January 29, 2025 Assessment & Plan Admission and Anticipated Discharge Date Admission Date: January 25, 2025 Subjective Assessment & Plan (1) Acute kidney injury superimposed on chronic kidney disease: Has CKD stage 3B--baseline creat fluctuates but 1.5--1.9 is the range. Creat on admission was at baseline at 1.9 and then peaked at 2.6 but now back to baseline 1.8. ELSIE was from [facility] in the setting of Bacteremia and UTI with Klebsiela. There might have been some component of Obstructive uropathy also as Urine Output picked up a lot after stent exchange She has Chronic urological issues and she did have Cystoscopy and Stent exchange on 01/26/2025--had Contrast exposure with that On Dapto and Doxy currently. She has e/o CHF. CT chest and CXR does show evidence of Continue lasix 40 iv bid. Creat is better and now is at baseline. Increasing urine output and this is a good sign. No other workup needed for ELSIE (2) Bacteremia due to Klebsiella pneumoniae: Urinary source and same in Blood and urine. Has very recurrent issue with Complex UTI. Continue same (3) Chronic hypoxic respiratory failure, on home oxygen therapy: has Sig Cardiac and Pulmonary problems needing Chronic o2. has Some e/o CHF and would use Iv lasix. Continue Lasix 40 iv bid. Daily labs. Increasing urine last few days so good sign S--No new issues. No SOB.On o2 --4 liters. Making lot of urine Physical Exam Physical Exam: General: NAD. HENT: Normocephalic. Atraumatic. Neck: No JVD Heart: Regular. Grade II/ systolic murmur. Lungs: b/l basal rales. No wheeze. Abdomen: Soft. Nontender. No masses or organomegaly. Extremities: 1+ edema. Results & Data Vital Signs (Past 12 Hours) Vital Signs Temp Pulse Pulse Pulse Resp BP Pulse Ox 01/29/25 07:50 36.6 C 95 H 21 147/67 H 96 01/29/25 07:24 96 H 01/29/25 03:21 37.0 C 101 H 22 140/70 94 01/28/25 23:58 36.7 C 100 H 24 160/68 H 94 01/28/25 22:34 102 H O2 Del Method O2 Flow Rate 01/29/25 07:50 Nasal Cannula 4 05/06/25 07:24 01/29/25 03:21 Nasal Cannula 01/28/25 23:58 Nasal Cannula 4 01/28/25 22:34
--- NOTE | 2025-01-29 10:24 | Cardiology Progress Note ---
Date of Service January 29, 2025 Assessment & Plan (1) Acute hypoxemic respiratory failure: (2) Acute on chronic diastolic heart failure: (3) Volume overload: (4) Sinus tachycardia: Plan Complex 69-year-old female readmitted to [facility] January 23, 2025 after presenting to the ER with acute on chronic dyspnea, without supplemental oxygen due to power outage, subsequently developing complicated UTI and sepsis with observed fevers and hypotension. Prior to arrival diuretic (furosemide 60 mg BID) held. Patient's status post January 26, 2025 cystoscopy, right sided stent exchange. I/O's +7 L prior to developing acute on chronic dyspnea on 01/26/2025. Imaging with mild cardiomegaly, pulmonary vascular congestion, interstitial edema, small pleural effusions with possible superimposed alveolar pulmonary edema or pneumonia, enlarged mediastinal and bilateral hilar lymph nodes. IV furosemide initiated on 01/27 with resultant negative fluid balance and improvement in volume overload signs and symptoms. Cumulative I's and O's +3870 mL overall this admission Recommendations: * Supplement potassium orally * Continue IV furosemide at least another 1-2 days before transitioning back to prior to arrival furosemide 60 mg twice a day. * Continue supplemental oxygen. * Utilize CPAP therapy at night and when napping during the day. * Increase metoprolol succinate dosing to 25 mg/day * Refer for resting echocardiography in AM of 01/30 Admission and Anticipated Discharge Date Admission Date: January 25, 2025 Supervising Physician Co-Signing Physician Notes Attending attestation: Case reviewed with the advanced practitioner. I have personally performed a history and physical examination on the patient. I have reviewed the advanced practitioner's documentation on the date of service referenced in note, and I agree with, and take responsibility for the plan of care. Renal function improving. Continue IV furosemide with noted ongoing significant output from IV antibiotics. Supplement potassium. ID input noted and appreciated with regards to Klebsiella pneumoniae UTI/bacteremia I spent a total of 25 minutes coordinating, documenting, and providing care for this patient excluding time spent in the performance of separately billed services or time spent by another provider. Kedar Cevallos, Subjective Patient seen and examined. Chart, medications, telemetry reviewed. Complaints: Nonproductive cough. Tired. Restless legs. Generalized anxiety. Breathing and peripheral edema have improved. No angina type chest pain. No pleuritic chest pain. No significant palpitations. Telemetry: Sinus/sinus tachycardia with occasional PVCs, heart rates predominantly around the 100 bpm. Review of Systems Review of Systems: Complete Review of Systems is as stated above, negative, or noncontributory. Physical Exam Physical Exam: General: NAD. Elevated BMI HENT: Normocephalic. Atraumatic. Eyes: PER. Conjunctiva pink, sclera clear. Neck: Neck veins not appreciated. Heart: Regular at 90 bpm. Grade II/ systolic murmur. No diastolic murmur appreciated. Lungs: Faint bibasilar rales. No wheeze. Abdomen: +BS. Soft. Nontender. No masses or organomegaly. Extremities: Tract to 1+ edema. No cyanosis Limited neurological examination is without focal deficits. Results & Data Vital Signs (Past 12 Hours) Vital Signs Temp Pulse Pulse Pulse Resp BP Pulse Ox 01/29/25 07:50 36.6 C 95 H 21 147/67 H 96 01/29/25 07:24 96 H 01/29/25 03:21 37.0 C 101 H 22 140/70 94 01/28/25 23:58 36.7 C 100 H 24 160/68 H 94 01/28/25 22:34 102 H O2 Del Method O2 Flow Rate 01/29/25 07:50 Nasal Cannula 4 01/29/25 07:24 01/29/25 03:21 Nasal Cannula 01/28/25 23:58 Nasal Cannula 4 01/28/25 22:34 Laboratory Results Cardiac Enzymes 01/29/25 Range/Units 05:18 AST 13 (13-39) U/L CBC 01/29/25 Range/Units 05:18 WBC 9.91 (4.8-10.8) K/ul RBC 3.31 L (4.20-5.40) M/uL Hgb 9.6 L (12.0-16.0) g/dl Hct 30.7 L (37.0-47.0) % Plt Count 231 (130-400) K/uL Neut # (Auto) 7.39 H (1.40-6.50) K/uL Lymph # (Auto) 1.00 L (1.20-3.40) K/uL [place] # (Auto) 0.79 H (0.11-0.59) K/uL Eos # (Auto) 0.59 H (0.00-0.50) K/uL Baso # (Auto) 0.05 (0.00-0.20) K/uL Comprehensive Metabolic Panel 01/29/25 Range/Units 05:18 Sodium 137 (136-145) mmol/L Potassium 3.3 L (3.5-5.1) mmol/L Chloride 101 (98-107) mmol/L Carbon Dioxide 31 (21-32) mmol/L BUN 20 (6-23) mg/dl Creatinine 1.64 H (0.6-1.2) mg/dl Glucose 142 H (70-99(Fasting)) mg/dl Calcium 8.7 (8.6-10.3) mg/dl AST 13 (13-39) U/L ALT 12 (7-52) U/L Alkaline Phosphatase 91 (34-104) U/L Total Protein 6.2 (6.0-8.3) gm/dl Albumin 2.9 L (3.4-5.0) gm/dl Intake and Output 01/28/25 01/29/25 01/29/25 22:59 06:59 14:59 Intake Total 950 / 1450 200 / 1450 100 / 100 Output Total 2350 1500 / 235 Balance 949 / -901 -1300 / -901 100 / 100 Intake: IV 300 / 800 200 / 800 100 / 100 Acetaminophen 1,000 mg In 100 100 / 300 100 / 300 ml @ 400 mls/hr IV Q8H ROBERT Rx#: [id number] Ampicillin/Sulbactam Sod 3,000 100 / 200 100 / 200 100 / 100 mg In 100 ml @ 200 mls/hr IV Q8H ROBERT Rx#:[id number] Piperacillin/Tazobactam 4.5 gm 100 / 100 In 100 ml @ 25 mls/hr IV Q8H ROBERT Rx#:[id number] Oral 650 / 650 Output: Urine Amount (Catheter) 1499 Fernandez/Indwelling 1499 # Bowel Movements
[2025-01-29] MEDS: AMPICILLIN/SULBACTAM SOD 3,000 MG/100 ML BAG IV SCH (13:56)
--- NOTE | 2025-01-29 16:32 | Hospitalist Progress Note ---
Date of Service January 29, 2025 Assessment & Plan (1) Chronic hypoxic respiratory failure, on home oxygen therapy: Plan Patient is 69-year-old female with PMH significant for DM II, HTN, HLD, CAD, chronic HFpEF, CKD III, chronic hypoxic respiratory failure on 2 L O2 at rest and 4L with ambulation, ILD, sleep apnea, obesity, postsurgical hypothyroidism, history HIT, depression, anxiety, history of recurrent DVT and PE, s/p IVC filter who presented to ER with complaint of being out of oxygen secondary to power outage x 1 day. Her oxygen supplier was unable to bring her oxygen tanks. In ER placed on her normal home O2 at 2L with O2 sat 96% and no further SOB reported. Denies CP Continue home supplemental oxygen On 2-3L NC while resting and 4L NC while ambulating per baseline Power restored at home on 01/24 but pt now being treated for urosepsis and CHF. Acute on Chronic diastolic CHF Possible Pneumonia Acute on Chronic Respiratory Failure Pt with increased work of breathing overnight on 01/26 Chest XRAY at the time noting "Increased interstitial opacities with bronchitis" recommending CT followup CT Chest wo contrast ordered and concerning for CHF and possible pneumonia BNP elevated D-dimer elevated, given kidney disease, V/Q scan ordered for followup (Eliquis has been occasionally on hold) Pt currently on Zosyn (also dapto which does not penetrate the lung for urosepsis), added doxycycline, MRSA nares negative Creatinine improving, pt given one dose of IV Lasix 40mg- continue to hold home lasix 60mg BID Cautious use of diuretics nephrology and cardiology consulted appreciate recs -IV Lasix 40mg BID at this time -on Toprol 25mg daily Monitor Is and Os Daily weights Continue to monitor Urosepsis Complicated UTI Recent hospitalization 12/09/2024-12/14/2024 for UTI, right ureteral stent exchange on 12/13/2024 by urology, negative blood cultures, final urine culture with more than 3 types of organisms present and had received 5 days IV cefepime and daptomycin. Patient reports chronic urinary frequency and chronic lower abdominal pressure and feels this is at baseline. UA on admission negative, urine Cx from admission no significant growth repeat UA on January 24 suggestive of infection, January 24 urine Cx no significant growth Blood Cx from admission growing Klebsiella in 1/[address] abd/pelvis noting stable urological changes and findings suggestive of an acute infection On IV Zosyn and Daptomycin Urology consulted, appreciate recs -s/p R stent exchange on 01/26, urine Cx from the kidney obtained intraop growing Klebsiella and Proteus Pt still with fever spikes and tachycardia post- source control on 01/26--- will repeat blood cultures Infectious Disease consulted, appreciate further recs from 01/28 -d/c Zosyn and Dapto -transition to Unasyn with EOT date of 02/07/25. Can transition to Augmentin for discharge Hypokalemia replete as needed DM II Insulin dependent A1c: 6.8 on 12/10/24 Chronic, stable. Continue basal bolus insulin. Will reduce home dose long-acting insulin as pt required less during prior hospital admissions. Will monitor and further adjust History of PE, recurrent DVTs S/P IVC filter D-dimer elevated, given kidney disease, V/Q scan ordered for followup (Eliquis has been occasionally on hold) V/Q scan noting intermediate probability of PE Doppler US ordered of lower extremities Continue Eliquis at this time at 2.5mg BID due to renal disease, noted allergies to heparin. consider transitioning to warfarin History R TCAR on 09/06/[address] Tang Continue aspirin, Plavix Acute on CKD stage III Cr: 1.9. Baseline creatinine ~1.8 Nephrology consult as above given need for increased diuresis HLD Continue rosuvastatin Fibromyalgia Continue duloxetine and gabapentin. Depression, anxiety Chronic, stable. Continue clonazepam, duloxetine RLS Continue ropinirole. Hypothyroidism Continue levothyroxine. GERD Continue pantoprazole. DVT Prophylaxis On Eliquis Full Code as per discussion with pt Follows with Dr Andujar for routine care Admission and Anticipated Discharge Date Admission Date: January 25, 2025 Subjective Pt was seen in the AM very sleepy at the time of exam Notes she was feeling depressed Per nursing, she is having issues with family members visiting Review of Systems Review of Systems: All systems reviewed & are unremarkable except as noted in Subjective Physical Exam Physical Exam: General: Alert, oriented. HEENT: NC/AT CV: RRR Resp: increased work of breathing, wheezy Abdomen:Soft, tender in RLQ Extremities: edema in lower extremities bilaterally. Results & Data Results & Data Vital Signs (Past 12 Hours) Vital Signs Temp Pulse Pulse Resp BP Pulse Ox O2 Del Method 01/29/25 15:21 36.6 C 86 19 156/75 H 96 Nasal Cannula 01/29/25 15:18 83 01/29/25 12:22 Nasal Cannula 01/29/25 11:24 36.5 C 89 16 128/61 99 Nasal Cannula 01/29/25 07:50 36.6 C 95 H 21 147/67 H 96 Nasal Cannula 01/29/25 07:24 96 H O2 Flow Rate 01/29/25 15:21 4 01/29/25 15:18 01/29/25 12:22 4 01/29/25 11:24 4 01/29/25 07:50 4 01/29/25 07:24
[2025-01-30] MEDS: LACTULOSE SYRUP 30 GM/45 ML UDP PO STA (00:40)
[2025-01-30 06:13] LABS: Hematocrit (blood only) 31.8 % (37.0-47.0); Hemoglobin 10.1 g/dl (12.0-16.0); Mean Corpuscular Hemoglobin 29.4 pg (25.0-34.0); Mean Corpuscular Hgb Conc 31.8 g/dL (32.0-36.0); Mean Corpuscular Volume 92.4 fL (80.0-100.0); Mean Platelet Volume 10.4 fL (9.4-12.4); Platelet Count 325 K/uL (130-400); RDW Coefficient of Variation 13.9 % (11.5-14.5); RDW Standard Deviation 46.9 fL (36.4-46.3); Red Blood Count 3.44 M/uL (4.20-5.40); White Blood Count 9.72 K/ul (4.8-10.8)
[2025-01-30 06:34] LABS: Albumin Globulin Ratio 0.8 (0.9-2); Albumin Level 2.9 gm/dl (3.4-5.0); Bilirubin,Total 0.5 mg/dl (0.2-1.0); Calcium 8.9 mg/dl (8.6-10.3); Creatinine Clr Calc Pharmacy 44.9 ml/min; Globulin 3.7 gm/dl (2.5-4.0); Magnesium 1.6 mg/dl (1.7-2.4); Potassium 3.4 mmol/L (3.5-5.1); Total Protein 6.6 gm/dl (6.0-8.3)
[2025-01-30 06:39] LABS: Basophils # (auto) 0.05 K/uL (0.00-0.20); Basophils % (auto) 0.5 %; Eosinophils # (auto) 0.69 K/uL (0.00-0.50); Eosinophils % (auto) 7.1 %; Immature Granulocytes # (auto) 0.12 K/uL (0.01-0.20); Immature Granulocytes % (auto) 1.2 %; Lymphocytes # (auto) 1.43 K/uL (1.20-3.40); Lymphocytes % (auto) 14.7 %; Monocytes # (auto) 0.59 K/uL (0.11-0.59); Monocytes % (auto) 6.1 %; Neutrophils # (auto) 6.84 K/uL (1.40-6.50); Neutrophils % (auto) 70.4 %; Polychromasia 1+
[2025-01-30] MEDS: MAGNESIUM SULFATE / D5W 1 GM/100 ML BAG IV SCH (07:47)
[2025-01-30] MEDS: POTASSIUM CHLORIDE CRTAB 20 MEQ TABCR PO STA (07:47)
[2025-01-30] MEDS: METOPROLOL SUCC 25MG EXT REL TAB PO SCH (07:50)
--- NOTE | 2025-01-30 08:38 | Cardiology Progress Note ---
Date of Service January 30, 2025 Assessment & Plan (1) Atrial flutter: (2) Acute hypoxemic respiratory failure: (3) Acute on chronic diastolic heart failure: (4) Volume overload: (5) Sinus tachycardia: Plan Complex 69-year-old female readmitted to [facility] January 23, 2025 after presenting to the ER with acute on chronic dyspnea, without supplemental oxygen due to power outage, subsequently developing complicated UTI and sepsis with observed fevers and hypotension. Prior to arrival diuretic (furosemide 60 mg BID) held. Patient's status post January 26, 2025 cystoscopy, right sided stent exchange. I/O's +7 L prior to developing acute on chronic dyspnea on 01/26/2025. Imaging with mild cardiomegaly, pulmonary vascular congestion, interstitial edema, small pleural effusions with possible superimposed alveolar pulmonary edema or pneumonia, enlarged mediastinal and bilateral hilar lymph nodes. IV furosemide initiated on 01/27 with resultant improvement. Cumulative I's and O's +1,560 mL overall at this point. AM labs with mild hypokalemia and hypomagnesemia. New onset asymptomatic atrial flutter/fibrillation observed on telemetry at 6:45 AM on 01/30/2025. Recommendations: * Supplement potassium orally and magnesium IV * Check EKG now, daily * Increase Eliquis to 5 mg twice a day * OK to discontinue aspirin from a cardiac standpoint. 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 Benefits and risks discussed. * Maintain telemetry * Continue IV furosemide today, reassess ongoing need in AM of 01/31/2025. Prior to arrival diuretic was furosemide 60 mg twice a day. * Continue metoprolol succinate * Continue clopidogrel, RE: Carotid stent * Continue supplemental oxygen. * Recommend utilization of CPAP therapy at night and when napping during the day Admission and Anticipated Discharge Date Admission Date: January 25, 2025 Supervising Physician Co-Signing Physician Notes Attending attestation: Case reviewed with the advanced practitioner. I have personally performed a history and physical examination on the patient. I have reviewed the advanced practitioner's documentation on the date of service referenced in note, and I agree with, and take responsibility for the plan of care. S: patient sitting in bedside chair. No complaints other than fatigue. Denies subjective palpitations or shortness of breath. Exam: CV: regular rhythm , No murmur Data: EKG at 7:42 am, interpreted independently: AFL at 100 bpm. Non specific repolarization abnormalities. Normal QTC. Echo performed today: normal LVEF , 60-65%, mild mitral stenosis, stable findings compared to prior. Plan: Supplement Potassium and Magnesium. On dual antiplatelet therapy given h/o TCAR. Will DC ASA and continue clopidogrel given need for anticoagulation. On Eliquis 2.5 mg PO BID, chronic DVT prevention dose. Increase to 5 mg BID for stroke prevention in the setting of AFib /flutter. Only mild MS. I believe therapy with Eliquis rather than warfarin is reasonable. Continue metoprolol. Add trial of IV amiodarone for rhythm control. LFTs within normal limits. TSH mildly low. May need to adjust levothyroxine. Hopefully use of amiodarone will only be for short term. I spent a total of 25 minutes coordinating, documenting, and providing care for this patient excluding time spent in the performance of separately billed services or time spent by another provider. Kedar Cevallos, Subjective Patient seen and examined. Chart, medications, telemetry reviewed. Complaints: Epistaxis overnight. Tired. Sleep apnea untreated for many many months. Breathing improved. Volume overload improved. No chest pain. No palpitations. No orthopnea. No PND. No dizziness. Telemetry: Sinus/sinus tachycardia, lapsing in to atrial flutter/fibrillation at 6:25 AM - heart rates in the 90's to 110 bpm. Review of Systems Review of Systems: Complete Review of Systems is as stated above, negative, or noncontributory. Physical Exam Physical Exam: General: NAD. Elevated BMI HENT: Normocephalic. Atraumatic. Eyes: PER. Conjunctiva pink, sclera clear. Neck: Neck veins not appreciated. Heart: Irregular at 100 bpm. Grade II/ systolic murmur. No diastolic murmur appreciated. Lungs: Faint bibasilar rales. No wheeze. Abdomen: +BS. Soft. Nontender. No masses or organomegaly. Extremities: Mild edema. No cyanosis Limited neurological examination is without focal deficits. Results & Data Vital Signs (Past 12 Hours) Vital Signs Temp Pulse Resp BP Pulse Ox O2 Del Method 01/30/25 07:11 36.7 C 103 H 19 134/99 94 Room Air 01/30/25 02:58 36.6 C 109 H 20 119/61 90 Nasal Cannula 01/29/25 22:53 36.6 C 95 H 22 157/86 H 96 Nasal Cannula 01/29/25 22:52 Room Air Laboratory Results Cardiac Enzymes 01/30/25 Range/Units 05:28 AST 20 (13-39) U/L CBC 01/30/25 Range/Units 05:28 WBC 9.72 (4.8-10.8) K/ul RBC 3.44 L (4.20-5.40) M/uL Hgb 10.1 L (12.0-16.0) g/dl Hct 31.8 L (37.0-47.0) % Plt Count 325 (130-400) K/uL Neut # (Auto) 6.84 H (1.40-6.50) K/uL Lymph # (Auto) 1.43 (1.20-3.40) K/uL Mccone # (Auto) 0.59 (0.11-0.59) K/uL Eos # (Auto) 0.69 H (0.00-0.50) K/uL Baso # (Auto) 0.05 (0.00-0.20) K/uL Comprehensive Metabolic Panel 01/30/25 Range/Units 05:28 Sodium 140 (136-145) mmol/L Potassium 3.4 L (3.5-5.1) mmol/L Chloride 100 (98-107) mmol/L Carbon Dioxide 33 H (21-32) mmol/L BUN 25 H (6-23) mg/dl Creatinine 1.56 H (0.6-1.2) mg/dl Glucose 183 H (70-99(Fasting)) mg/dl Calcium 8.9 (8.6-10.3) mg/dl AST 20 (13-39) U/L ALT 16 (7-52) U/L Alkaline Phosphatase 150 H (34-104) U/L Total Protein 6.6 (6.0-8.3) gm/dl Albumin 2.9 L (3.4-5.0) gm/dl Intake and Output 01/29/25 01/30/25 01/30/25 22:59 06:59 14:59 Intake Total 720 / 1840 500 / 1840 100 / 100 Output Total 750 / 4151 2201 / 4151 Balance -30 / -2311 -1701 / -2311 100 / 100 Intake: IV 300 / 700 200 / 700 100 / 100 Acetaminophen 1,000 mg In 100 100 / 300 100 / 300 ml @ 400 mls/hr IV Q8H [facility] Rx#: [id number] Ampicillin/Sulbactam Sod 3,000 200 / 300 100 / 300 100 / 100 mg In 100 ml @ 200 mls/hr IV Q6H [facility] Rx#:[id number] Oral 420 / 1140 300 / 1140 Output: Urine Amount (Catheter) 750 / 4150 2200 / 4150 Fernandez/Indwelling 750 / 4150 2200 / 4150 # Bowel Movements Other: Weight 123.5 kg Weight Measurement Method Built in [facility] (1) Atrial flutter Atrial flutter type: atypical Qualified Code(s): I48.4 - Atypical atrial flutter
[2025-01-30] MEDS ORDERED: POTASSIUM CHLORIDE CRTAB 20 MEQ TABCR PO SCH (09:00)
[2025-01-30] MEDS ORDERED: 0.2 MICRON FILTER SET 1 EACH IV ONE ×2 (09:16→11:03)
--- NOTE | 2025-01-30 09:22 | Nephrology Progress Note ---
Date of Service January 30, 2025 Assessment & Plan Admission and Anticipated Discharge Date Admission Date: January 25, 2025 Subjective Assessment & Plan (1) Acute kidney injury superimposed on chronic kidney disease: Has CKD stage 3B--baseline creat fluctuates but 1.5--1.9 is the range. Creat on admission was at baseline at 1.9 and then peaked at 2.6 but now back to baseline 1.8. ELSIE was from [facility] in the setting of Bacteremia and UTI with Klebsiela. There might have been some component of Obstructive uropathy also as Urine Output picked up a lot after stent exchange She has Chronic urological issues and she did have Cystoscopy and Stent exchange on 01/26/2025--had Contrast exposure with that On Dapto and Doxy currently. She has e/o CHF. CT chest and CXR does show evidence of Continue lasix 40 iv bid. Creat is better than baseline. good urine output and this is a good sign. No other workup needed for ELSIE. maybe start oral lasix from tomorrow (2) Bacteremia due to Klebsiella pneumoniae: Urinary source and same in Blood and urine. Has very recurrent issue with Complex UTI. Continue same (3) Chronic hypoxic respiratory failure, on home oxygen therapy: has Sig Cardiac and Pulmonary problems needing Chronic o2. has Some e/o CHF and would use Iv lasix. Continue Lasix 40 iv bid.maybe start oral lasix from tomorrow Daily labs. Increasing urine last few days so good sign S--No new issues. No SOB.On room air now--so this is improved. Making lot of urine Physical Exam Physical Exam: General: NAD. HENT: Normocephalic. Atraumatic. Neck: No JVD Heart: Regular. Grade II/ systolic murmur. Lungs: b/l basal rales. No wheeze. Abdomen: Soft. Nontender. No masses or organomegaly. Extremities: 1+ edema. Results & Data Vital Signs (Past 12 Hours) Vital Signs Temp Pulse Resp BP Pulse Ox O2 Del Method 01/30/25 07:11 36.7 C 103 H 19 134/99 94 Room Air 01/30/25 02:58 36.6 C 109 H 20 119/61 90 Nasal Cannula 01/29/25 22:53 36.6 C 95 H 22 157/86 H 96 Nasal Cannula 01/29/25 22:52 Room Air
[2025-01-30] MEDS: AMIODARONE / D5W 150 MG/100 ML BAG IV STA (10:14)
[2025-01-30 10:16] LABS: Thyroid Stimulating Hormone 0.165 uIu/ml (0.300-4.500)
[2025-01-30] MEDS: APIXABAN 5 MG TABLET PO SCH (10:18)
[2025-01-30] MEDS: POTASSIUM CHLORIDE CRTAB 20 MEQ TABCR PO SCH (10:18)
[2025-01-30] MEDS: AMIODARONE / D5W 360 MG/200 ML BAG IV ONE (11:29)
--- NOTE | 2025-01-30 11:42 | Hospitalist Progress Note ---
Date of Service January 30, 2025 Assessment & Plan (1) Chronic hypoxic respiratory failure, on home oxygen therapy: Plan Patient is 69-year-old female with PMH significant for DM II, HTN, HLD, CAD, chronic HFpEF, CKD III, chronic hypoxic respiratory failure on 2 L O2 at rest and 4L with ambulation, ILD, sleep apnea, obesity, postsurgical hypothyroidism, history HIT, depression, anxiety, history of recurrent DVT and PE, s/p IVC filter who presented to ER with complaint of being out of oxygen secondary to power outage x 1 day. Her oxygen supplier was unable to bring her oxygen tanks. Acute on Chronic diastolic CHF Possible Pneumonia Acute on Chronic Respiratory Failure Pt with increased work of breathing overnight on 01/26 Chest XRAY at the time noting "Increased interstitial opacities with bronchitis" recommending CT followup CT Chest wo contrast ordered and concerning for CHF and possible pneumonia BNP elevated Plan: -continue zosyn/doxy -Creatinine improving -Cautious use of diuretics -nephrology and cardiology consulted appreciate recs -IV Lasix 40mg BID at this time -on Toprol 25mg daily -dispo is SNF, possibly tomorrow 01/31 New Onset Atrial Flutter -variable conduction Plan: -appreciate cardiology assistance -increase eliquis, amiodarone per cardiology Urosepsis Complicated UTI -Recent hospitalization 12/09/2024-12/14/2024 for UTI, right ureteral stent exc hange on 12/13/2024 by urology, negative blood cultures, final urine culture with more than 3 types of organisms present and had received 5 days IV cefepime and daptomycin. -Patient reports chronic urinary frequency and chronic lower abdominal pressure and feels this is at baseline. -Blood Cx from admission growing Klebsiella in 1/4 bottles -CT abd/pelvis noting stable urological changes and findings suggestive of an acute infection Plan: -continue zosyn -Urology consulted, appreciate recs -s/p R stent exchange on 01/26, urine Cx from the kidney obtained intraop growing Klebsiella and Proteus -Infectious Disease consulted, appreciate further recs from 01/28 -d/c Zosyn and Dapto -transition to Unasyn with EOT date of 02/07/25. Can transition to Augmentin for discharge Hypokalemia replete as needed DM II -Insulin dependent -A1c: 6.8 on 12/10/24 -Continue basal bolus insulin. Will reduce home dose long-acting insulin as pt required less during prior hospital admissions. Will monitor and further adjust History of PE, recurrent DVTs -S/P IVC filter -V/Q scan noting intermediate probability of PE -Continue Eliquis at this time at 2.5mg BID due to renal disease, noted allergies to heparin. consider transitioning to warfarin History R TCAR on 09/06/[address] Tang -Continue aspirin, Plavix Acute on CKD stage III -Cr: 1.9. Baseline creatinine ~1.8 -Nephrology consult as above given need for increased diuresis HLD -Continue rosuvastatin Fibromyalgia -Continue duloxetine and gabapentin. Depression, anxiety -Chronic, stable. -Continue clonazepam, duloxetine RLS -Continue ropinirole. Hypothyroidism -Continue levothyroxine. GERD -Continue pantoprazole. I spent a total of 50 minutes in direct patient care, including [id number] time with the patient and/or family, reviewing medical records, ordering and reviewing diagnostic tests, and coordinating care with other healthcare providers. This time includes: history taking, physical examination, medical decision making, counseling, ECG interpretation, imaging interpretation, lab interpretation, orders, and education, excluding time spent in the performance of separately billed services. Admission and Anticipated Discharge Date Admission Date: January 25, 2025 Subjective Patient seen and examined at bedside. Patient doing well today, states she wants to go home. Still feels a bit SOB. Went into variable atrial flutter this morning. Review of Systems Review of Systems: CONSTITUTIONAL: Patient denies fevers, chills, sweats and weight changes. EYES: Patient denies any visual symptoms. EARS, NOSE, AND THROAT: No difficulties with hearing. No symptoms of rhinitis or sore throat. CARDIOVASCULAR: Patient denies chest pains, palpitations, orthopnea and paroxysmal nocturnal dyspnea. RESPIRATORY: shortness of breath GI: No nausea, vomiting, diarrhea, constipation, abdominal pain, hematochezia or melena. : No urinary hesitancy or dribbling. No nocturia or urinary frequency. No abnormal urethral discharge. MUSCULOSKELETAL: No myalgias or arthralgias. NEUROLOGIC: No chronic headaches, no seizures. Patient denies numbness, tingling or weakness. PSYCHIATRIC: Patient denies problems with mood disturbance. No problems with anxiety. ENDOCRINE: No excessive urination or excessive thirst. DERMATOLOGIC: Patient denies any rashes or skin changes. Physical Exam Physical Exam: Gen: A&O 3 NAD, large body habitus HEENT: NCAT, EOMI, not icteric. External ears normal. No rhinorrhea. Moist mucous membranes. Neck: Supple, full range of motion, no observable masses, No meningeal sign. Lungs: No Respiratory distress. CV: irregular rhythm, tachycardic Abdomen: Soft, nondistended, No rebound tenderness. MSK: No joint swelling, no redness. Skin: No rashes, petechiae, lesions. Normal color per patient. Neuro: Normal Gait, Grossly intact. Psych: appears overwhelmed by situation Results & Data Results & Data Vital Signs (Past 12 Hours) Vital Signs Temp Pulse Pulse Pulse Resp BP Pulse Ox 01/30/25 11:38 36.7 C 89 16 131/81 96 01/30/25 07:30 01/30/25 07:11 36.7 C 103 H 19 134/99 94 01/30/25 05:39 92 H 01/30/25 02:58 36.6 C 109 H 20 119/61 90 O2 Del Method O2 Flow Rate 01/30/25 11:38 Nasal Cannula 4 01/30/25 07:30 Nasal Cannula 2 01/30/25 07:11 Room Air 01/30/25 05:39 01/30/25 02:58 Nasal Cannula Laboratory Results -personally reviewed, Hgb appears at baseline, no leukcytosis, K of 3.4 was replenished, creatining downtrending, Mg 1.6 and replenished, low TSH, elevated alk phos isolated today Medications Administered Apixaban (Apixaban 5 Mg Tablet) 5 mg PO BID ROBERT Stop: 03/01/25 09:14 Last Admin: 01/30/25 10:18 Dose: 5 mg Documented By: NORMA Clonazepam (Clonazepam 0.5 Mg Tab) 0.5 mg PO TID ROBERT Stop: 02/22/25 20:59 Last Admin: 01/30/25 07:48 Dose: 0.5 mg Documented By: Admin: 01/29/25 21:34 Dose: 0.5 mg Documented By: PROCESS CONTROL MANAGER Admin: 01/29/25 14:01 Dose: 0.5 mg Documented By: Admin: 01/29/25 08:21 Dose: 0.5 mg Documented By: Admin: 01/28/25 21:02 Dose: 0.5 mg Documented By: Admin: 01/28/25 14:46 Dose: 0.5 mg Documented By: Admin: 01/28/25 08:43 Dose: 0.5 mg Documented By: Admin: 01/27/25 23:49 Dose: Not Given Documented By: Admin: 01/27/25 13:40 Dose: Not Given Documented By: Admin: 01/27/25 08:29 Dose: 0.5 mg Documented By: Admin: 01/26/25 20:41 Dose: 0.5 mg Documented By: HFHernán Admin: 01/26/25 14:03 Dose: Not Given Documented By: Admin: 01/26/25 07:49 Dose: 0.5 mg Documented By: Admin: 01/25/25 21:10 Dose: 0.5 mg Documented By: Admin: 01/25/25 11:23 Dose: Not Given Documented By: Admin: 01/25/25 11:20 Dose: 0.5 mg Documented By: Admin: 01/24/25 20:43 Dose: 0.5 mg Documented By: Admin: 01/24/25 14:16 Dose: 0.5 mg Documented By: Admin: 01/24/25 08:54 Dose: 0.5 mg Documented By: Admin: 01/23/25 21:48 Dose: 0.5 mg Documented By: WILLEM Clopidogrel Bisulfate (Clopidogrel Bisulfate 75 Mg Tab) 75 mg PO QAM [facility] Stop: 02/23/25 08:59 Last Admin: 01/30/25 07:50 Dose: 75 mg Documented By: Admin: 01/29/25 08:06 Dose: 75 mg Documented By: Admin: 01/28/25 08:36 Dose: 75 mg Documented By: Admin: 01/27/25 08:31 Dose: 75 mg Documented By: Admin: 01/26/25 09:27 Dose: 75 mg Documented By: Admin: 01/25/25 11:20 Dose: 75 mg Documented By: Admin: 01/24/25 08:55 Dose: 75 mg Documented By: SADIE Dicyclomine HCl (Dicyclomine Hcl 20 Mg Tab) 20 mg PO QID PRN PRN Reason: abdominal cramping Stop: 02/22/25 20:24 Last Admin: 01/28/25 21:53 Dose: 20 mg Documented By: Admin: 01/26/25 07:49 Dose: 20 mg Documented By: Admin: 01/25/25 22:37 Dose: 20 mg Documented By: Admin: 01/24/25 19:29 Dose: 20 mg Documented By: Admin: 01/24/25 10:22 Dose: 20 mg Documented By: Admin: 01/24/25 02:12 Dose: 20 mg Documented By: WILLEM Duloxetine HCl (Duloxetine Hcl 60 Mg Cap) 60 mg PO QAM [facility] Stop: 02/23/25 08:59 Last Admin: 01/30/25 07:50 Dose: 60 mg Documented By: Admin: 01/29/25 08:08 Dose: 60 mg Documented By: Admin: 01/28/25 08:37 Dose: 60 mg Documented By: Admin: 01/27/25 08:30 Dose: 60 mg Documented By: Admin: 01/26/25 07:49 Dose: 60 mg Documented By: Admin: 01/25/25 09:19 Dose: 60 mg Documented By: Admin: 01/24/25 08:55 Dose: 60 mg Documented By: SADIE Fluticasone Propionate (Fluticasone Propionate Na Spr 16 Gm Btl) 2 sprays [facility] Stop: 02/22/25 20:59 Last Admin: 01/30/25 08:21 Dose: 2 sprays Documented By: Admin: 01/29/25 21:35 Dose: 2 sprays Documented By: Admin: 01/29/25 08:07 Dose: 2 sprays Documented By: Admin: 01/28/25 21:03 Dose: Not Given Documented By: Admin: 01/28/25 08:37 Dose: 2 sprays Documented By: Admin: 01/27/25 20:43 Dose: 2 sprays Documented By: Admin: 01/27/25 08:25 Dose: Not Given Documented By: Admin: 01/26/25 20:42 Dose: 2 sprays Documented By: Admin: 01/26/25 07:50 Dose: 2 sprays Documented By: Admin: 01/25/25 21:10 Dose: 2 sprays Documented By: Admin: 01/25/25 09:19 Dose: Not Given Documented By: Admin: 01/24/25 20:43 Dose: 2 sprays Documented By: Admin: 01/24/25 08:55 Dose: 2 sprays Documented By: Admin: 01/23/25 21:48 Dose: 2 sprays Documented By: WILLEM Furosemide (Furosemide 40 Mg/4 Ml Vial) 40 mg IV BID ROBERT Stop: 02/27/25 20:59 Last Admin: 01/30/25 07:47 Dose: 40 mg Documented By: Admin: 01/29/25 21:35 Dose: 40 mg Documented By: Admin: 01/29/25 08:08 Dose: 40 mg Documented By: Admin: 01/28/25 21:12 Dose: 40 mg Documented By: CATARINA Gabapentin (Gabapentin 300 Mg Cap) 300 mg PO Q12H ROBERT Stop: 02/24/25 07:59 Last Admin: 01/30/25 07:49 Dose: 300 mg Documented By: Admin: 01/29/25 21:34 Dose: 300 mg Documented By: Admin: 01/29/25 08:06 Dose: 300 mg Documented By: Admin: 01/28/25 21:11 Dose: 300 mg Documented By: Admin: 01/28/25 08:35 Dose: 300 mg Documented By: Admin: 01/27/25 20:43 Dose: 300 mg Documented By: Admin: 01/27/25 08:30 Dose: 300 mg Documented By: Admin: 01/26/25 20:42 Dose: 300 mg Documented By: Admin: 01/26/25 07:50 Dose: 300 mg Documented By: Admin: 01/25/25 21:11 Dose: 300 mg Documented By: Admin: 01/25/25 09:18 Dose: 300 mg Documented By: BETHANY Hydroxyzine HCl (Hydroxyzine Hcl 10 Mg Tab) 10 mg PO QID PRN PRN Reason: Anxiety Stop: 02/25/25 01:17 Last Admin: 01/29/25 21:44 Dose: 10 mg Documented By: Admin: 01/29/25 16:25 Dose: 10 mg Documented By: Admin: 01/29/25 08:05 Dose: 10 mg Documented By: Admin: 01/28/25 20:49 Dose: 10 mg Documented By: Admin: 01/28/25 12:00 Dose: 10 mg Documented By: Admin: 01/27/25 08:24 Dose: 10 mg Documented By: Admin: 01/26/25 20:41 Dose: 10 mg Documented By: Admin: 01/26/25 01:34 Dose: 10 mg Documented By: HFHernán Acetaminophen (Ofirmev) 1,000 mg in 100 mls @ 400 mls/hr IV Q8H ROBERT Stop: 01/31/25 10:54 Last Infusion: 01/30/25 10:42 Dose: Infused Documented By: Admin: 01/30/25 10:18 Dose: 400 mls/hr Documented By: Infusion: 01/30/25 02:54 Dose: Infused Documented By: Admin: 01/30/25 02:36 Dose: 400 mls/hr Documented By: Infusion: 01/29/25 18:39 Dose: Infused Documented By: Admin: 01/29/25 17:21 Dose: 400 mls/hr Documented By: Infusion: 01/29/25 10:19 Dose: Infused Documented By: Admin: 01/29/25 10:04 Dose: 400 mls/hr Documented By: Infusion: 01/29/25 03:30 Dose: Infused Documented By: Admin: 01/29/25 03:11 Dose: 400 mls/hr Documented By: Infusion: 01/28/25 20:14 Dose: Infused Documented By: Admin: 01/28/25 18:42 Dose: 400 mls/hr Documented By: Infusion: 01/28/25 11:16 Dose: Infused Documented By: Admin: 01/28/25 10:59 Dose: 400 mls/hr Documented By: CHRYSTAL Ampicillin Sodium/Sulbactam Sodium (Unasyn) 3,000 mg in 100 mls @ 200 mls/hr IV Q6H ROBERT Stop: 02/11/25 15:59 Last Infusion: 01/30/25 08:52 Dose: Infused Documented By: Admin: 01/30/25 07:49 Dose: 200 mls/hr Documented By: Infusion: 01/30/25 02:30 Dose: Infused Documented By: Admin: 01/30/25 02:00 Dose: 200 mls/hr Documented By: Infusion: 01/29/25 22:00 Dose: Infused Documented By: Admin: 01/29/25 21:30 Dose: 200 mls/hr Documented By: Infusion: 01/29/25 15:16 Dose: Infused Documented By: Admin: 01/29/25 13:56 Dose: 200 mls/hr Documented By: VANGIE Amiodarone HCl/Dextrose (Nexterone / D5w) 360 mg in 200 mls @ 33.333 mls/hr IV ONE ONE; Protocol Stop: 01/30/25 17:02 Last Admin: 01/30/25 11:29 Dose: 1 mg/min, 33.3 mls/hr Documented By: NORMA Co-signed By: VICKI Insulin Aspart (Insulin Aspart Per Unit Charge) 0 units SC ACHS ROBERT Stop: 02/25/25 16:44 Last Admin: 01/30/25 07:56 Dose: 5 units Documented By: NORMA Co-signed By: GINA Admin: 01/29/25 21:35 Dose: 4 units Documented By: CONNOR Co-signed By: ROLANDO Admin: 01/29/25 16:37 Dose: 12 units Documented By: VANGIE Co-signed By: YVETTE Admin: 01/29/25 12:08 Dose: 7 units Documented By: VANGIE Co-signed By: SILKE Admin: 01/29/25 08:20 Dose: 7 units Documented By: VANGIE Co-signed By: YVETTE Admin: 01/28/25 21:12 Dose: 1 units Documented By: CATARINA Co-signed By: MOON Admin: 01/28/25 17:07 Dose: 7 units Documented By: CHRYSTAL Co-signed By: VICKI Admin: 01/28/25 12:40 Dose: 7 units Documented By: CHRYSATL Co-signed By: SILKE Admin: 01/28/25 08:34 Dose: 7 units Documented By: CHRYSTAL Co-signed By: SILKE Admin: 01/27/25 22:31 Dose: 3 units Documented By: DAGO Co-signed By: MOON Admin: 01/27/25 17:23 Dose: 8 units Documented By: GINA Co-signed By: ULISES Admin: 01/27/25 12:04 Dose: Not Given Documented By: Admin: 01/27/25 08:26 Dose: 3 units Documented By: CLIF Co-signed By: GLODY Admin: 01/26/25 20:56 Dose: 5 units Documented By: BRITTNI Co-signed By: MUSTAPHA Admin: 01/26/25 17:10 Dose: Not Given Documented By: ADITYA Insulin Glargine (Lantus Per Unit Charge) 10 units SQ HS ROBERT Stop: 02/22/25 20:59 Last Admin: 01/29/25 21:36 Dose: 10 units Documented By: CONNOR Co-signed By: ROLANDO Admin: 01/28/25 21:12 Dose: 10 units Documented By: CATARINA Co-signed By: MOON Admin: 01/27/25 22:32 Dose: 10 units Documented By: DAGO Co-signed By: MOON Admin: 01/26/25 20:56 Dose: 10 units Documented By: BRITTNI Co-signed By: MUSTAPHA Admin: 01/25/25 21:18 Dose: 10 units Documented By: BRITTNI Co-signed By: MICHAEL Admin: 01/24/25 20:47 Dose: 10 units Documented By: WILLEM Co-signed By: BINA Admin: 01/23/25 21:57 Dose: 10 units Documented By: WILLEM Co-signed By: BINA Lactobacillus Acidophilus (Advanced Probiotic 625 Mg Capsule) 625 mg PO QPM ROBERT Stop: 02/22/25 20:59 Last Admin: 01/29/25 21:34 Dose: 625 mg Documented By: Admin: 01/28/25 21:13 Dose: 625 mg Documented By: Admin: 01/27/25 20:42 Dose: 625 mg Documented By: Admin: 01/26/25 20:42 Dose: 625 mg Documented By: Admin: 01/25/25 21:11 Dose: 625 mg Documented By: Admin: 01/24/25 20:43 Dose: 625 mg Documented By: Admin: 01/23/25 21:49 Dose: 625 mg Documented By: WILLEM Levothyroxine Sodium (Levothyroxine Sodium 200 Mcg Tablet) 200 mcg PO DAILYBB ROBERT Stop: 02/23/25 06:29 Last Admin: 01/30/25 06:41 Dose: 200 mcg Documented By: Admin: 01/29/25 06:00 Dose: 200 mcg Documented By: Admin: 01/28/25 05:15 Dose: 200 mcg Documented By: Admin: 01/27/25 05:58 Dose: 200 mcg Documented By: Admin: 01/26/25 05:58 Dose: 200 mcg Documented By: Admin: 01/25/25 05:41 Dose: 200 mcg Documented By: Admin: 01/24/25 05:45 Dose: 200 mcg Documented By: WILLEM Magnesium Oxide (Magnesium Oxide 400 Mg Tab) 400 mg PO BID ROBERT Stop: 02/22/25 20:59 Last Admin: 01/30/25 07:57 Dose: 400 mg Documented By: Admin: 01/29/25 21:35 Dose: 400 mg Documented By: Admin: 01/29/25 08:21 Dose: 400 mg Documented By: Admin: 01/28/25 23:36 Dose: 400 mg Documented By: Admin: 01/28/25 08:37 Dose: 400 mg Documented By: Admin: 01/27/25 20:43 Dose: 400 mg Documented By: Admin: 01/27/25 08:30 Dose: 400 mg Documented By: Admin: 01/26/25 20:43 Dose: 400 mg Documented By: Admin: 01/26/25 07:49 Dose: 400 mg Documented By: Admin: 01/25/25 21:12 Dose: 400 mg Documented By: Admin: 01/25/25 09:19 Dose: 400 mg Documented By: Admin: 01/24/25 20:44 Dose: 400 mg Documented By: Admin: 01/24/25 08:56 Dose: 400 mg Documented By: Admin: 01/23/25 21:49 Dose: 400 mg Documented By: WILLEM Metoprolol Succinate (Metoprolol Succ 25mg Ext Rel Tab) [facility] [place] Stop: 03/01/25 08:59 Last Admin: 01/30/25 07:50 Dose: 25 mg Documented By: NORMA Pantoprazole Sodium (Pantoprazole 40 Mg Tab) 40 [facility] [place] Stop: 02/23/25 08:59 Last Admin: 01/30/25 07:50 Dose: 40 mg Documented By: Admin: 01/29/25 08:06 Dose: 40 mg Documented By: Admin: 01/28/25 08:38 Dose: 40 mg Documented By: Admin: 01/27/25 08:32 Dose: 40 mg Documented By: Admin: 01/26/25 07:49 Dose: 40 mg Documented By: Admin: 01/25/25 09:19 Dose: 40 mg Documented By: Admin: 01/24/25 08:56 Dose: 40 mg Documented By: SADIE Potassium Chloride (Potassium Chloride Crtab 20 Meq Tabcr) 20 meq PO BID ROBERT Stop: 03/01/25 08:59 Last Admin: 01/30/25 10:18 Dose: 20 meq Documented By: NORMA Ropinirole HCl (Ropinirole Hcl 2 Mg Tablet) 2 mg PO HS ROBERT Stop: 02/22/25 20:59 Last Admin: 01/29/25 21:34 Dose: 2 mg Documented By: Admin: 01/28/25 21:15 Dose: 2 mg Documented By: Admin: 01/27/25 22:35 Dose: Not Given Documented By: Admin: 01/26/25 20:43 Dose: 2 mg Documented By: Admin: 01/25/25 21:12 Dose: 2 mg Documented By: Admin: 01/24/25 20:44 Dose: 2 mg Documented By: Admin: 01/23/25 21:50 Dose: 2 mg Documented By: WILLEM Rosuvastatin Calcium (Rosuvastatin Calcium 5 Mg Tab) 5 mg PO QAM ROBERT Stop: 02/23/25 08:59 Last Admin: 01/30/25 07:52 Dose: 5 mg Documented By: Admin: 01/24/25 08:55 Dose: 5 mg Documented By: SADIE Senna/Docusate Sodium (Docusate Sodium/Senna 50/8.6mg Tab) 1 tab PO BID ROBERT Stop: 02/22/25 20:59 Last Admin: 01/30/25 08:29 Dose: Not Given Documented By: Admin: 01/29/25 21:35 Dose: 1 tab Documented By: Admin: 01/29/25 08:07 Dose: 1 tab Documented By: Admin: 01/28/25 21:03 Dose: Not Given Documented By: Admin: 01/28/25 08:36 Dose: Not Given Documented By: Admin: 01/27/25 22:31 Dose: 1 tab Documented By: Admin: 01/27/25 08:35 Dose: Not Given Documented By: Admin: 01/26/25 20:41 Dose: 1 tab Documented By: Admin: 01/26/25 07:53 Dose: Not Given Documented By: Admin: 01/25/25 21:10 Dose: 1 tab Documented By: Admin: 01/25/25 07:26 Dose: Not Given Documented By: Admin: 01/24/25 20:43 Dose: Not Given Documented By: Admin: 01/24/25 08:54 Dose: 1 tab Documented By: Admin: 01/23/25 21:48 Dose: 1 tab Documented By: WILLEM Tamsulosin HCl (Tamsulosin Hcl 0.4 Mg Cap) 0.4 mg PO HS ROBERT Stop: 02/22/25 20:59 Last Admin: 01/29/25 21:34 Dose: 0.4 mg Documented By: Admin: 01/28/25 21:15 Dose: 0.4 mg Documented By: Admin: 01/27/25 20:43 Dose: 0.4 mg Documented By: Admin: 01/26/25 20:42 Dose: 0.4 mg Documented By: Admin: 01/25/25 21:12 Dose: 0.4 mg Documented By: Admin: 01/24/25 20:44 Dose: 0.4 mg Documented By: Admin: 01/23/25 21:50 Dose: 0.4 mg Documented By: WILLEM Tizanidine HCl (Tizanidine Hcl 4 Mg Tablet) 4 mg PO Q6 PRN PRN Reason: Muscle Spasm Stop: 02/22/25 20:24 Last Admin: 01/27/25 20:42 Dose: 4 mg Documented By: Admin: 01/26/25 07:50 Dose: 4 mg Documented By: Admin: 01/24/25 17:41 Dose: 4 mg Documented By: Admin: 01/23/25 21:51 Dose: 4 mg Documented By: WILLEM Tramadol HCl (Tramadol Hcl 50 Mg Tablet) 50 mg PO Q8H PRN PRN Reason: Mod-Sev Pain (Scale 4-10) Stop: 02/23/25 20:22 Last Admin: 01/29/25 21:39 Dose: 50 mg Documented By: PROCESS CONTROL MANAGER Admin: 01/29/25 10:06 Dose: 50 mg Documented By: Admin: 01/28/25 21:17 Dose: 50 mg Documented By: Admin: 01/28/25 08:43 Dose: 50 mg Documented By: Admin: 01/27/25 03:42 Dose: 50 mg Documented By: Admin: 01/26/25 18:36 Dose: 50 mg Documented By: Admin: 01/25/25 21:19 Dose: 50 mg Documented By: BRITTNI Trazodone HCl (Trazodone Hcl 50 Mg Tab) 50 mg PO HS ROBERT Stop: 02/22/25 20:59 Last Admin: 01/29/25 21:34 Dose: 50 mg Documented By: Admin: 01/28/25 21:18 Dose: 50 mg Documented By: Admin: 01/27/25 20:43 Dose: 50 mg Documented By: Admin: 01/26/25 20:41 Dose: 50 mg Documented By: Admin: 01/25/25 21:12 Dose: 50 mg Documented By: Admin: 01/24/25 20:44 Dose: 50 mg Documented By: Admin: 01/23/25 21:50 Dose: 50 mg Documented By: WILLEM Vitamin D (Cholecalciferol 25 Mcg (1000 Units) Tab) 25 mcg PO QAM ROBERT Stop: 02/23/25 08:59 Last Admin: 01/30/25 07:49 Dose: 25 mcg Documented By: Admin: 01/29/25 08:08 Dose: 25 mcg Documented By: Admin: 01/28/25 08:36 Dose: 25 mcg Documented By: Admin: 01/27/25 08:32 Dose: 25 mcg Documented By: Admin: 01/26/25 07:50 Dose: 25 mcg Documented By: Admin: 01/25/25 09:18 Dose: 25 mcg Documented By: Admin: 01/24/25 08:55 Dose: 25 mcg Documented By: SADIE
[2025-01-30 12:29] LABS: T4 Free Thyroxine 0.73 ng/dl (0.61-1.60)
--- NOTE | 2025-01-30 14:48 | Communication Note ---
Date of Service: January 30, 2025 Pt converted back to SR at 11:17 am on 01/30/25. Will stop IV amiodarone. Discussed plan with patient's nurse. Lulu Cevallos, DO Cardiology
[2025-01-30] MEDS ORDERED: AMIODARONE / D5W 360 MG/200 ML BAG IV SCH (17:00)
[2025-01-31 06:12] LABS: Hematocrit (blood only) 33.9 % (37.0-47.0); Hemoglobin 10.6 g/dl (12.0-16.0); Mean Corpuscular Hgb Conc 31.3 g/dL (32.0-36.0); Mean Corpuscular Volume 92.9 fL (80.0-100.0); Mean Platelet Volume 9.8 fL (9.4-12.4); Platelet Count 412 K/uL (130-400); RDW Coefficient of Variation 14.1 % (11.5-14.5); Red Blood Count 3.65 M/uL (4.20-5.40); White Blood Count 11.93 K/ul (4.8-10.8)
[2025-01-31 06:31] LABS: BUN Creatinine Ratio 17.1 (10-20); Creatinine Clr Calc Pharmacy 45.9 ml/min; Magnesium 1.9 mg/dl (1.7-2.4); Potassium 3.9 mmol/L (3.5-5.1)
[2025-01-31 07:18] VITALS: RESP 18
--- NOTE | 2025-01-31 09:07 | Cardiology Progress Note ---
Date of Service January 31, 2025 Assessment & Plan (1) Atrial flutter: (2) Acute hypoxemic respiratory failure: (3) Acute on chronic diastolic heart failure: (4) Volume overload: (5) Sinus tachycardia: Plan Complex 69-year-old female readmitted to [facility] January 23, 2025 after presenting to the ER with acute on chronic dyspnea, without supplemental oxygen due to power outage, subsequently developing complicated UTI and sepsis with observed fevers and hypotension. Prior to arrival diuretic (furosemide 60 mg BID) held. Patient's status post January 26, 2025 cystoscopy, right sided stent exchange. I/O's +7 L prior to developing acute on chronic dyspnea on 01/26/2025. Imaging with mild cardiomegaly, pulmonary vascular congestion, interstitial edema, small pleural effusions with possible superimposed alveolar pulmonary edema or pneumonia, enlarged mediastinal and bilateral hilar lymph nodes. IV furosemide initiated on 01/27 with resultant improvement. Cumulative I's and O's now -25 mL's overall. Kidney function stable to mildly improved. Transient asymptomatic atrial flutter/fibrillation observed on 01/30/2025, converting back to sinus while on IV amiodarone, without clinical sequela. Recommendations: * Increase metoprolol succinate to 37.5 mg per day for additional heart rate and blood pressure control. * Continue anticoagulation with Eliquis which was increased to 5 mg twice a day this admission because of the new onset atrial flutter/fibrillation * Aspirin discontinued this admission * Continue clopidogrel 75 mg/day, RE: Carotid stent * No medical terminologist amiodarone * Diuretic therapy managed by Nephrology. OK from cardiac standpoint to switch back to oral furosemide (prior to arrival dose was furosemide 60 mg twice a day. * Continue supplemental oxygen. Recommend utilization of CPAP therapy when sleeping. * Increase activity as tolerated. * ? appropriate polypharmacy; consider deprescribing * OK for discharge to SNF from a cardiac standpoint * Please contact with any cardiology questions or concerns Admission and Anticipated Discharge Date Admission Date: January 25, 2025 Supervising Physician Co-Signing Physician Notes Attending attestation: Case reviewed with the advanced practitioner. I have personally performed a history and physical examination on the patient. I have reviewed the advanced practitioner's documentation on the date of service referenced in note, and I agree with, and take responsibility for the plan of care. On dual antiplatelet therapy given h/o TCAR. Will DC ASA and continue clopidogrel given need for anticoagulation. On Eliquis 2.5 mg PO BID, chronic DVT prevention dose. Increase to 5 mg BID for stroke prevention in the setting of AFib /flutter. Only mild MS. I believe therapy with Eliquis rather than warfarin is reasonable. IV amiodarone was administered transiently on 01/30/2025 with successful conversion from atrial flutter back to sinus rhythm instead of as about 11 AM on 01/30/2025. Amiodarone discontinued. Oral metoprolol succinate dose increased to 37.5 mg daily. OK from cardiac standpoint to transition back to oral furosemide. Remove Fernandez catheter. OK for rehab from cardiac perspective. Kedar Cevallos DO Subjective Patient seen and examined. Chart, medications, telemetry reviewed. Transient atrial flutter observed on 01/30/2025 from 6:25 AM to 11 AM, asymptomatic, converting back to sinus while on IV amiodarone, without clinical sequela, maintaining sinus rhythm thereafter. Complaints: Tired. No chest pain, palpitations, dyspnea, orthopnea, PND, dizziness or unilateral complaint to suggest TIA/CVA Telemetry: Sinus at 80 bpm currently. Occasional atrial and ventricular ectopy. No significant bradycardia or pauses. EKG this AM revealed normal sinus rhythm at 85 bpm. QTc 454 ms. Review of Systems Review of Systems: Complete Review of Systems is as stated above, negative, or noncontributory. Physical Exam Physical Exam: General: NAD. Elevated BMI HENT: Normocephalic. Atraumatic. Eyes: PER. Conjunctiva pink, sclera clear. Neck: Neck veins not appreciated. Heart: Irregular with occasional ectopy, 90 bpm. Grade II/ systolic murmur. No diastolic murmur appreciated. Lungs: Clear. No wheeze. Abdomen: +BS. Soft. Nontender. No masses or organomegaly. Extremities: No edema. No cyanosis Limited neurological examination is without focal deficits. Results & Data Vital Signs (Past 12 Hours) Vital Signs Temp Pulse Pulse Pulse Resp BP Pulse Ox 01/31/25 07:18 36.7 C 85 18 172/78 H 94 01/31/25 03:20 36.5 C 89 25 H 162/80 H 94 01/30/25 23:11 36.5 C 80 20 145/56 H 93 01/30/25 23:00 83 O2 Del Method O2 Flow Rate 01/31/25 07:18 Nasal Cannula 4 01/31/25 03:20 Nasal Cannula 01/30/25 23:11 Nasal Cannula 01/30/25 23:00 Laboratory Results CBC 01/31/25 Range/Units 05:42 WBC 11.93 H (4.8-10.8) K/ul RBC 3.65 L (4.20-5.40) M/uL Hgb 10.6 L (12.0-16.0) g/dl Hct 33.9 L (37.0-47.0) % Plt Count 412 H (130-400) K/uL Comprehensive Metabolic Panel 01/31/25 Range/Units 05:42 Sodium 141 (136-145) mmol/L Potassium 3.9 (3.5-5.1) mmol/L Chloride 99 (98-107) mmol/L Carbon Dioxide 35 H (21-32) mmol/L BUN 26 H (6-23) mg/dl Creatinine 1.52 H (0.6-1.2) mg/dl Glucose 159 H (70-99(Fasting)) mg/dl Calcium 9.0 (8.6-10.3) mg/dl Intake and Output 01/30/25 01/31/25 01/31/25 22:59 06:59 14:59 Intake Total 540 / 2494.888 500 / 2494.888 Output Total 600 / 4229 2300 / 4229 Balance -60 / -1734.112 -1800 / -1734.112 Intake: IV 300 / 1094.888 200 / 1094.888 Acetaminophen 1,000 mg In 100 100 / 300 100 / 300 ml @ 400 mls/hr IV Q8H ROBERT Rx#: [id number] Ampicillin/Sulbactam Sod 3,000 200 / 400 100 / 400 mg In 100 ml @ 200 mls/hr IV Q6H ROBERT Rx#:[id number] Oral 240 / 1400 300 / 1400 Output: Urine Amount (Catheter) 600 / 4225 2300 / 4225 Fernandez/Indwelling 600 / 4225 2300 / 4225 Other: Weight 122.8 kg Weight Measurement Method Built in [facility] (1) Atrial flutter Atrial flutter type: atypical Qualified Code(s): I48.4 - Atypical atrial flutter
[2025-01-31 11:02] VITALS: TEMP 97.9; O2SAT 93
[2025-01-31 11:24] VITALS: BP 121/64
--- NOTE | 2025-01-31 11:44 | Discharge Summary ---
Discharge Summary Date of Service January 31, 2025 Principal Dx & Hospital Course #1 = Principal Diagnosis (1) Chronic hypoxic respiratory failure, on home oxygen therapy: Plan Patient is 69-year-old female with PMH significant for DM II, HTN, HLD, CAD, chronic HFpEF, CKD III, chronic hypoxic respiratory failure on 2 L O2 at rest and 4L with ambulation, ILD, sleep apnea, obesity, postsurgical hypothyroidism, history HIT, depression, anxiety, history of recurrent DVT and PE, s/p IVC filter who presented to ER with complaint of being out of oxygen secondary to power outage x 1 day. Her oxygen supplier was unable to bring her oxygen tanks. Acute on Chronic diastolic CHF Possible Pneumonia Acute on Chronic Respiratory Failure Pt with increased work of breathing overnight on 01/26 Chest XRAY at the time noting "Increased interstitial opacities with bronchitis" recommending CT followup CT Chest wo contrast ordered and concerning for CHF and possible pneumonia BNP elevated Plan: -continue zosyn/doxy -Creatinine improving -Cautious use of diuretics -nephrology and cardiology consulted appreciate recs -IV Lasix 40mg BID at this time -on Toprol 25mg daily -dispo is SNF, possibly tomorrow 01/31 New Onset Atrial Flutter -variable conduction Plan: -appreciate cardiology assistance -continue eliquis, stop amiodarone at home Urosepsis Complicated UTI -Recent hospitalization 12/09/2024-12/14/2024 for UTI, right ureteral stent exchange on 12/13/2024 by urology, negative blood cultures, final urine culture with more than 3 types of organisms present and had received 5 days IV cefepime and daptomycin. -Patient reports chronic urinary frequency and chronic lower abdominal pressure and feels this is at baseline. -Blood Cx from admission growing Klebsiella in 1/4 bottles -CT abd/pelvis noting stable urological changes and findings suggestive of an acute infection Plan: -continue zosyn -Urology consulted, appreciate recs -s/p R stent exchange on 01/26, urine Cx from the kidney obtained intraop growing Klebsiella and Proteus -Infectious Disease consulted, appreciate further recs from 01/28 -d/c Zosyn and Dapto -transition to Unasyn with EOT date of 02/07/25. Can transition to Augmentin for discharge Hypokalemia replete as needed DM II -Insulin dependent -A1c: 6.8 on 12/10/24 -Continue basal bolus insulin. Will reduce home dose long-acting insulin as pt required less during prior hospital admissions. Will monitor and further adjust History of PE, recurrent DVTs -S/P IVC filter -V/Q scan noting intermediate probability of PE -Continue Eliquis at this time at 2.5mg BID due to renal disease, noted allergies to heparin. consider transitioning to warfarin History R TCAR on 09/06/[address] Tang -Continue aspirin, Plavix Acute on CKD stage III -Cr: 1.9. Baseline creatinine ~1.8 -Nephrology consult as above given need for increased diuresis HLD -Continue rosuvastatin Fibromyalgia -Continue duloxetine and gabapentin. Depression, anxiety -Chronic, stable. -Continue clonazepam, duloxetine RLS -Continue ropinirole. Hypothyroidism -Continue levothyroxine. GERD -Continue pantoprazole. Notes For Next Care Provider Patient is 69-year-old female with PMH significant for DM II, HTN, HLD, CAD, chronic HFpEF, CKD III, chronic hypoxic respiratory failure on 2 L O2 at rest and 4L with ambulation, ILD, sleep apnea, obesity, postsurgical hypothyroidism, history HIT, depression, anxiety, history of recurrent DVT and PE, s/p IVC filter who presented to ER with complaint of being out of oxygen secondary to power outage x 1 day. Her oxygen supplier was unable to bring her oxygen tanks. ADmitted for decompensated HF, given diuresis with improvement, course c/b atrial flutter, started on amiodarone but stopped before discharge per cardiology. ID recommending augmentin for complicated UTI until 02/07/2025. PT/OT recommending SNF. On 01/31/2025 patient medically stable for discharge home. Medication Changes From Visit -see below Admission HPI Per Admitting Provider Patient is 69-year-old female with PMH DM II, HTN, HLD, CAD, chronic HFpEF, CKD III, chronic hypoxic respiratory failure on 2 L O2 at rest and 4L with ambulation, ILD, sleep apnea, obesity, postsurgical hypothyroidism, history HIT, depression, anxiety, history of recurrent DVT and PE, s/p IVC filter, and others listed below presented to ER with complaint of being out of oxygen secondary to power outage x 1 day. Patient reports is out of power since last night and unable to use home oxygen concentrator and ran out of oxygen tanks at home. She reports her oxygen supplier was unable to bring her oxygen today. Since being without oxygen was more SOB. In ER her home oxygen applied and patient reports no further SOB. Denies chest pain, fever, chills or cough. Per inpatient chart review patient with recent hospitalization 12/09/2024-12/14/2024 for UTI, right ureteral stent exchange on 12/13/2024 by urology, negative blood cultures, final urine culture with more than 3 types of organisms present and had received 5 days IV cefepime and daptomycin. Patient reports chronic urinary frequency and chronic lower abdominal pressure and feels this is at baseline. Denies fever, diaphoresis, N/V/D/C, BURROWS, dizziness, CP, palpitations, sore throat, rhinorrhea, extremity weakness, extremity edema, rashes, hematuria. Discharge Exam Gen: A&O 3 NAD, large body habitus HEENT: NCAT, EOMI, not icteric. External ears normal. No rhinorrhea. Moist mucous membranes. Neck: Supple, full range of motion, no observable masses, No meningeal sign. Lungs: No Respiratory distress. CV: RRR Abdomen: Soft, nondistended, No rebound tenderness. MSK: No joint swelling, no redness. Skin: No rashes, petechiae, lesions. Normal color per patient. Neuro: Normal Gait, Grossly intact. Psych: improved today Updated Medication List Medication Instructions Recorded Confirmed Type clonazepam 0.5 mg tablet 0.5 mg PO TID 09/20/23 01/23/25 History furosemide 40 mg tablet 60 mg PO BID 09/20/23 01/23/25 History magnesium oxide 400 mg (241.3 mg 400 mg PO BID 09/20/23 01/23/25 History magnesium) tablet omeprazole 20 mg capsule,delayed 20 mg PO QAM 09/20/23 01/23/25 History release potassium chloride 20 mEq 20 meq PO BID 09/20/23 01/23/25 History tablet,extended release(part/cryst) ropinirole 2 mg tablet 2 mg PO HS 09/20/23 01/23/25 History sennosides 8.6 mg-docusate sodium 1 tab PO BID 09/20/23 01/23/25 History 50 mg tablet (Senna-Time S) tramadol 50 mg tablet 50 mg PO Q8 PRN Pain 09/20/23 01/23/25 History levothyroxine 200 mcg tablet 200 mcg PO DAILYBB #30 tabs 12/07/23 01/23/25 Rx cholecalciferol (vitamin D3) 25 25 mcg PO QAM 01/16/24 01/23/25 History mcg (1,000 unit) tablet clopidogrel 75 mg tablet 75 mg PO QAM 01/16/24 01/23/25 History duloxetine 60 mg capsule,delayed 60 mg PO QAM 12/09/24 01/23/25 History release fluticasone propionate 50 2 spray intranasal AMHS 12/09/24 01/23/25 History mcg/actuation nasal spray,suspension gabapentin 300 mg capsule 300 mg PO AMHS 12/09/24 01/23/25 History insulin aspart U-100 100 unit/mL See Rx Instructions .Route .COMPLEX 12/09/24 01/23/25 History (3 mL) subcutaneous pen (Novolog FlexPen U-100 Insulin aspart) insulin degludec 100 unit/mL (3 41 unit subcut QPM 12/09/24 01/23/25 History mL) subcutaneous pen (Tresiba FlexTouch U-100 insulin) rosuvastatin 5 mg tablet 5 mg PO QAM 12/09/24 01/23/25 History trazodone 50 mg tablet 50 mg PO HS 12/09/24 01/23/25 History tamsulosin 0.4 mg capsule 0.4 mg PO HS #30 caps 12/14/24 01/23/25 Rx amoxicillin 500 mg-potassium 1 tab PO BID 7 days #14 tabs 01/31/25 Rx clavulanate 125 mg tablet (Augmentin) apixaban 5 mg tablet (Eliquis) 5 mg PO BID #60 tabs 01/31/25 Rx metoprolol succinate 25 mg 37.5 mg (1.5 x 25 mg) PO QAM #30 01/31/25 Rx tablet,extended release 24 hr tabs Hospital Stay Data Consultations 01/23/25 19:01 ED Decision to Admit Stat 01/25/25 03:16 Consult Urology Routine 01/27/25 13:50 Consult Infectious Diseases Routine 01/28/25 09:19 Consult Cardiology Routine 01/28/25 09:21 Consult Nephrology Routine Procedures Performed Operation Date: 01/26/25 12:30 Actual Procedures p Cystoscopy, Retrograde Pyelogram, Flexible Ureteronephroscopy and Ureteral Stent Exchange Right - Al Arriaga MD Diagnostic Imagining Performed 01/24/25 11:04 CT Abd and Pelvis [CT abd pelvis wo con] Stat 01/26/25 FL retrograde includes kub Routine 01/27/25 10:30 CT chest diagnostic wo con Urgent 01/28/25 12:17 US venous doppler LE BI Urgent Pending Results Patient Have Any Pending Studies at Discharge: No Discharge Instructions Given to Patient (Per Discharging Provider) 1. Please take medications as prescribed. 2. FInish course of augmentin per ID until 02/07/2025. Total Time Total Time Spent Total Time Spent (In Minutes): I spent a total of 45 minutes in direct patient care, including [id number] time with the patient and/or family, reviewing medical records, ordering and reviewing diagnostic tests, and coordinating care with other healthcare providers. This time includes: history taking, physical examination, medical decision making, counseling, ECG interpretation, imaging interpretation, lab interpretation, orders, and education, excluding time spent in the performance of separately billed services.
[2025-01-31 15:13] VITALS: PULSE 90
[2025-02-01] MEDS ORDERED: METOPROLOL SUCC 25MG EXT REL TAB PO SCH (09:00)
--- NOTE | 2025-02-01 22:30 | Electrocardiogram Report ---
Test Reason : Blood Pressure : */* mmHG Vent. Rate : 85 BPM Atrial Rate : 85 BPM P-R Int : 162 ms QRS Dur : 74 ms QT Int : 382 ms P-R-T Axes : 53 17 36 degrees QTcB Int : 454 ms Normal sinus rhythm Normal ECG When compared with ECG of 30-Jan-2025 07:42, Sinus rhythm has replaced Atrial flutter Confirmed by Parish Julien ([id number]) on 02/01/2025 10:30:27 PM Referred By: REFERRED SELF Confirmed By: Parish Julien
--- NOTE | 2025-02-01 22:30 | Electrocardiogram Report ---
Test Reason : Blood Pressure : */* mmHG Vent. Rate : 100 BPM Atrial Rate : 288 BPM P-R Int : * ms QRS Dur : 80 ms QT Int : 350 ms P-R-T Axes : 268 15 31 degrees QTcB Int : 451 ms Atrial flutter with variable A-V block Low voltage QRS Nonspecific ST abnormality Abnormal ECG When compared with ECG of 27-Jan-2025 10:56, Atrial flutter has replaced Sinus rhythm Confirmed by Parish Julien ([id number]) on 02/01/2025 10:30:04 PM Referred By: REFERRED SELF Confirmed By: Parish Julien
== END 2025-01-31 13:05 | DRG 853 ==
LOC: 3E 17:35 → ED 17:35 → SUATTDRO 19:12 → 3E 20:26 → SUATTDRO 01-25 12:30 → 2E 01-27 11:35

== ENCOUNTER 2025-04-12 17:35 | Inpatient (IN) ==
[2025-04-12 18:22] LABS: Hematocrit (blood only) 35.9 % (37.0-47.0); Hemoglobin 11.3 g/dl (12.0-16.0); Immature Granulocytes # (auto) 0.03 K/uL (0.01-0.20); Immature Granulocytes % (auto) 0.4 %; Mean Corpuscular Hemoglobin 30.5 pg (25.0-34.0); Mean Corpuscular Volume 96.8 fL (80.0-100.0); Platelet Count 319 K/uL (130-400); RDW Standard Deviation 51.4 fL (36.4-46.3); Red Blood Count 3.71 M/uL (4.20-5.40); White Blood Count 7.34 K/ul (4.8-10.8)
[2025-04-12 18:40] LABS: Alanine Aminotransferase 9.0 U/L (7-52); Albumin Globulin Ratio 0.9 (0.9-2); Alkaline Phosphatase 93.0 U/L (34-104); Anion Gap 6.0 (3-11); Bilirubin,Total 0.3 mg/dl (0.2-1.0); Blood Urea Nitrogen 45.0 mg/dl (6-23); Calcium 8.9 mg/dl (8.6-10.3); Carbon Dioxide 34.0 mmol/L (21-32); Chloride 97.0 mmol/L (98-107); Creatinine Clr Calc Pharmacy 31.0 ml/min; Globulin 4.3 gm/dl (2.5-4.0); Glucose 161.0 mg/dl (70-99(Fasting)); Potassium 4.3 mmol/L (3.5-5.1); Sodium 137.0 mmol/L (136-145); Total Protein 8.2 gm/dl (6.0-8.3)
[2025-04-12] MEDS ORDERED: DAPTOMYCIN IV SCH (19:15)
--- NOTE | 2025-04-12 19:30 | Emergency Department Note ---
Impression & Plan VRE (vancomycin resistant enterococcus) culture positive, UTI (urinary tract infection) ED Provider Note NAME: GEENA MAC AGE: 69 SEX: F : 1955 ARRIVES VIA: Walk-In INFORMANT: Patient, ED PROVIDER(S): Tri Armenta MD CHIEF COMPLAINT: IV antibiotic HPI: This is 69-year-old female presenting for possible IV antibiotic. Patient has a history of UPJ obstruction requiring nephrostomy tube. She had urine culture that came back positive for VRE. Based on her note, ED pharmacist discussed this with the urology service. Patient tells me that the urologist office, Dr. Arriaga, called her to come to the ER for IV antibiotics. She reports pain in the right kidney over this nephrostomy tube is located. She reports reduced output. Otherwise she reports no fevers, chills, nausea or vomiting. ROS: See above HPI for pertinent positives & negatives. A total of 10 systems reviewed and were otherwise negative. PAST MEDICAL HISTORY: See Below PAST SURGICAL HISTORY: See Below FAMILY HISTORY: See Below SOCIAL HISTORY: See Below HOME MEDICATIONS: See Below ALLERGIES: See Below VITALS: See Below PHYSICAL EXAMINATION: General: resting comfortably in no acute distress Head: Normocephalic and atraumatic Eyes: Normal inspection, extraocular muscles intact Ear, nose, throat: Normal external exam Neck: Normal range of motion Respiratory: lungs clear to auscultation bilaterally Cardiovascular: Regular rate/rhythm, no murmur GI: soft, nontender, no guarding or rebound Extremities: nontender, moves all extremities Neuro: The patient awake and alert, appropriately conversive, no focal deficits, symmetric faces Skin: Warm, dry, and intact MEDICAL DECISION MAKING: This is a 69-year-old female presenting for patient was told come back in by her urologist after discussion with our ED pharmacist for IV antibiotics. Patient not appear septic currently without tachycardia, hypotension. Due to the VRE on urinalysis, will start daptomycin at this time. - Blood work reveals no leukocytosis. Hemoglobin 11.3. Creatinine 2.26, around her baseline. - Admit the patient for IV antibiotics. Care discussed with Dr. Montes for admission. Differential diagnosis: VRE, cystitis, nephrostomy tube infection Diagnostics interpreted by me: ECG: None Cardiac Monitoring: An order was placed for continuous cardiac monitoring. The monitor shows a rate of 73 with sinus rhythm. Past Med/Surg History Problem List (Updated 04/13/25 @ 00:19 by Tri Armenta MD) UTI (urinary tract infection) (Acute) VRE (vancomycin resistant enterococcus) culture positive (Acute) Abdominal pain, lower (Acute) Hematuria (Acute) Elevated troponin (Acute) ELSIE (acute kidney injury) (Acute) Sepsis (Acute) Insulin-requiring or dependent type II diabetes mellitus Atrial flutter Sinus tachycardia Volume overload Acute hypoxemic respiratory failure Bacteremia due to Klebsiella pneumoniae Chronic hypoxic respiratory failure, on home oxygen therapy Complicated urinary tract infection (Acute) Ureteral stent retained Acute UTI (urinary tract infection) (Acute) Following with urology Arthralgia (Acute) Fatigue (Acute) UPJ obstruction, acquired Left knee DJD Ambulatory dysfunction Fall (Acute) Hematuria Polypharmacy Hypoglycemia Chronic respiratory failure Urinary frequency (Acute) Lumbago with sciatica Lower extremity pain, bilateral Major depression, recurrent Sciatica (Acute) Non compliance w medication regimen Chronic diastolic heart failure Multiple falls Subclavian artery stenosis Cerebrovascular duplex study 06/2023: Retrograde flow in the right vertebral artery. 50-69% proximal right subclavian artery stenosis. Antegrade flow in the left vertebral artery. Normal flow in the left subclavian artery. Carotid stenosis, right Cerebrovascular duplex 07/11/23: 80-99% R ICA stenosis. No hemodynamically significant stenosis in the LICA. Left radial head fracture Obesity hypoventilation syndrome Pickwickian syndrome Generalized body aches Weakness (Acute) Orthostasis (Acute) Hip pain, right (Acute) Knee pain, right (Acute) Abdominal pain (Acute) Acute on chronic kidney failure (Acute) Per urology records Per records elevated creatinine stable since 12/2023 CKD (chronic kidney disease), stage III (Chronic) Follows with [facility] Hypomagnesemia (Acute) CHF (congestive heart failure) (Acute) Hepatosplenomegaly (Acute) ELISSA on CPAP (Chronic) CPAP + 3L O2 (O2 is continuous) HTN (hypertension) (Chronic) HLD (hyperlipidemia) (Chronic) Morbid obesity (Chronic) 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, [facility] then life flight to [place] > "resolved" Depression with anxiety (Chronic) Hypothyroidism (Chronic) GERD (gastroesophageal reflux disease) (Chronic) RLS (restless legs syndrome) (Chronic) Presence of IVC filter (Chronic) 2008 Diabetes (Chronic) Fibromyalgia (Chronic) Medical History Bilateral flank pain Acute kidney injury superimposed on chronic kidney disease Leukocytosis Hydronephrosis History of pulmonary embolism 2008 s/p zoraida filter History of DVT (deep vein thrombosis) 2008 (during ICU [place] admission/PNA) Subclavian arterial stenosis (06/2023) Cerebrovascular duplex study 06/2023: Retrograde flow in the right vertebral artery. 50-69% proximal right subclavian artery stenosis. Antegrade flow in the left vertebral artery. Normal flow in the left subclavian artery. Hx of pulmonary edema Pickwickian syndrome Orthostasis Lumbago with sciatica Left knee DJD Hx of hydronephrosis Hyperlipemia Hypertension HIT (heparin-induced thrombocytopenia) (2008) hx - [facility] then life flight to [place] > "resolved" Deep vein thrombosis (DVT) Recurrent per records On Eliquis Initially occurred during ICU [place] admission, s/p zoraida filter [address] Right LE doppler 11/2023 showed no DVT within right LE Hepatosplenomegaly Hx of fracture radius Depression with anxiety Chronic diastolic (congestive) heart failure follos with Dr. Woodall @ [facility] Hx of carotid artery stenosis surgery - R TCAR 09/09/23 Arthralgia Ambulatory dysfunction uses cane and electric scooter History of infection with vancomycin resistant Enterococcus (VRE) (12/2023) VRE UTI during inpatient admit at [facility] Hx of Clostridium difficile infection (12/2023) during inpatient admit to [facility], treated, no current sx Hx of constipation Hx of vertigo occasional Hx: UTI (urinary tract infection) frequent Hx of fall (11/2023) last fall was November 2023 - no injuries Diabetes IDDM ELISSA on CPAP CPAP + 3L O2 (O2 is continuous) Hx of septic shock (12/2023) due to UTI - admit to [facility] Presence of IVC filter (2008) [facility], continues to be in place due to current clots behind right knee Hx pulmonary embolism (2008) s/p zoraida filter GERD (gastroesophageal reflux disease) RLS (restless legs syndrome) History of pneumonia (2008) x 8 weeks, [facility] then tx to [facility], "put me in a coma, flew me to [facility], had a trach then went to retirement with trach" Trach removed Sep 2009 Fibromyalgia Hypothyroidism Hx of pyelonephritis (12/2023) CKD (chronic kidney disease), stage III follows [facility] Nephrology Hx of congestive heart failure takes lasix, sees Dr. Jose C Garcia Chronic hypoxemic respiratory failure O2 3-4L at all times - sees Pulm @ [facility] Transient hypotension Mitral valve stenosis Mild per cardio records (due to severe calcification) Echo 06/2023: Borderline mild mitral stenosis secondary to severe mitral annular calcification, follows [facility] cardio Dr. Woodall Cataract, bilateral Neuropathy feet On home oxygen therapy 3-4L continuous Surgical History History of colon resection (2008) secondary to R colon perforation, resected treated with colostomy and eventual reversal in 2008 Hx of tracheostomy (06/2009) (per [facility] records), secondary to acute respiratory failure in setting of PNA, reversed a few months later in 2009 Hx of cystoscopy (11/25/23) with stent placement right side due to infection History of transcarotid artery revascularization (TCAR) (08/2023) right, [facility] History of right knee joint replacement (Unknown) > 10 years Hx laparoscopic cholecystectomy Hx of thyroidectomy (2011) total Family history of reaction to anesthesia Brother/niece- PONV Brother- "wakes up violent" History of colostomy reversal (10/1997) History of tooth extraction History of arthroscopy (Unknown) left ankle , > 10 years History of incisional hernia repair Nausea and vomiting after administration of anesthetic agent History of colonoscopy Family History Father , age 74 Lung cancer Mother , age 45 Cirrhosis Social History Smoking Status: Never smoker Tobacco Type: Cigarettes Cigarettes Per Day: 1996; Second Hand Exposure: No; Do You Dip or Chew Tobacco: No; Hx Alcohol Use: No Hx Substance Use: No Preferred Language: Nauruan Communication Ability: Effective Line Ordering Clinician Required: No Beliefs That Will Affect Care: None marital status: Single Current Living Situation: Alone Current Living Situation Comment: Lives by self in apartment How many Children do You have: 0 Feels Safe at Home: Yes Assistive Devices: CPAP, Oxygen - Continuous, Scooter/Electric Scooter and Walker Allergies Allergies Allergy/AdvReac Type Severity Reaction Status Date / Time morphine Allergy Severe Swelling, Verified 04/12/25 19:30 "Violent reaction- almost " pollen extracts Allergy Intermediate HAYFEVER Verified 04/12/25 19:30 SYMPTOMS heparin AdvReac Severe HEPARIN Verified 04/12/25 19:30 INDUCED THROMBOCYTOPENIA bupropion [From Wellbutrin] AdvReac Intermediate Recurrent Verified 04/12/25 19:30 falls as per patient codeine AdvReac Intermediate Hallucinati Verified 04/12/25 19:30 ons dapagliflozin [From Farxiga] AdvReac Intermediate Yeast Verified 04/12/25 19:30 infections empagliflozin AdvReac Intermediate Yeast Verified 04/12/25 19:30 [From Jardiance] infections hydrocodone [From Vicodin] AdvReac Intermediate Drowsy Verified 04/12/25 19:30 tetanus toxoid, adsorbed AdvReac Intermediate Passed Verified 04/12/25 19:30 out, "got sick" as child Home Meds Home Medications Medication Instructions Recorded Confirmed clonazepam 0.5 mg tablet 0.5 mg PO TID 09/20/23 04/12/25 furosemide 40 mg tablet 20 mg PO QAM 09/20/23 04/12/25 magnesium oxide 400 mg (241.3 mg 400 mg PO BID 09/20/23 04/12/25 magnesium) tablet ropinirole 2 mg tablet 2 mg PO HS 09/20/23 04/12/25 sennosides 8.6 mg-docusate sodium 1 tab PO BID 09/20/23 04/12/25 50 mg tablet (Senna-Time S) tramadol 50 mg tablet 50 mg PO Q8 PRN Pain 09/20/23 04/12/25 cholecalciferol (vitamin D3) 25 25 mcg PO QAM 01/16/24 04/12/25 mcg (1,000 unit) tablet clopidogrel 75 mg tablet 75 mg PO QAM 01/16/24 04/12/25 duloxetine 60 mg capsule,delayed 60 mg PO QAM 12/09/24 04/12/25 release fluticasone propionate 50 2 spray intranasal AMHS 12/09/24 04/12/25 mcg/actuation nasal spray,suspension gabapentin 300 mg capsule 300 mg PO AMHS 12/09/24 04/12/25 insulin aspart U-100 100 unit/mL See Rx Instructions .Route .COMPLEX 12/09/24 04/12/25 (3 mL) subcutaneous pen (Novolog FlexPen U-100 Insulin aspart) insulin degludec 100 unit/mL (3 15 unit subcut QPM 12/09/24 04/12/25 mL) subcutaneous pen (Tresiba FlexTouch U-100 insulin) rosuvastatin 5 mg tablet 5 mg PO QAM 12/09/24 04/12/25 trazodone 50 mg tablet 50 mg PO HS 12/09/24 04/12/25 tirzepatide 7.5 mg/0.5 mL 7.5 mg subcut WK 02/25/25 04/12/25 subcutaneous pen injector (Kevan) Lactobacillus acidophilus 10 10,000 mmu cells PO DAILY 04/07/25 04/12/25 billion cell capsule acetaminophen 500 mg tablet 500 - 1,000 mg PO Q8H PRN Pain 04/07/25 04/12/25 (Tylenol Extra Strength) albuterol sulfate 2.5 mg/3 mL 2.5 mg inhalation DIRECTED PRN 04/07/25 04/12/25 (0.083 %) solution for nebulization Shortness Of Breath Or Wheezing albuterol sulfate 5 mg/mL(0.5 %) 2.5 mg inhalation DIRECTED PRN 04/07/25 04/12/25 solution for nebulization Shortness Of Breath Or Wheezing cyanocobalamin (vitamin B-12) 500 500 mcg PO DAILY 04/07/25 04/12/25 mcg tablet (Vitamin B-12) duloxetine 30 mg capsule,delayed 30 mg PO QAM 04/07/25 04/12/25 release pantoprazole 20 mg tablet,delayed 20 mg PO QAM 04/07/25 04/12/25 release potassium chloride 10 mEq 10 meq PO BID 04/07/25 04/12/25 capsule,extended release tamsulosin 0.4 mg capsule 0.4 mg PO QAM 04/07/25 04/12/25 Previous Rx's Medication Instructions Recorded levothyroxine 200 mcg tablet 200 mcg PO DAILYBB #30 tabs 12/07/23 apixaban 5 mg tablet (Eliquis) 5 mg PO BID #60 tabs 01/31/25 metoprolol succinate 25 mg 37.5 mg (1.5 x 25 mg) PO QAM #30 01/31/25 tablet,extended release 24 hr tabs Results & Data (ED) Vital Signs Vital Signs - 24 hr 04/12/25 17:53 04/12/25 19:10 04/12/25 19:10 Temperature 36.7 C Temperature Source Temporal Artery Scan Pulse Rate 79 72 Pulse Rate [Finger] 73 Respiratory Rate 18 20 Respiratory Effort / Characteristics Non-Labored Spontaneous Respiratory Depth Normal Respiratory Pattern Regular Blood Pressure 119/44 L Blood Pressure [Left Arm] 162/98 H Blood Pressure Mean 69 Blood Pressure Mean [Left Arm] 119 Pulse Oximetry 97 96 Oxygen Delivery Method Nasal Cannula Nasal Cannula Oxygen Flow Rate 3 3 Sepsis Recent Fever Within 48 Hours No Sepsis New/Unexplained Change in Mental Status N/A Sepsis Action Taken by Nursing No Action Required Laboratory Data 04/12/25 18:04 04/12/25 18:04 Lab Results 04/12/25 Range/Units 18:04 WBC 7.34 (4.8-10.8) K/ul RBC 3.71 L (4.20-5.40) M/uL Hgb 11.3 L (12.0-16.0) g/dl Hct 35.9 L (37.0-47.0) % MCV 96.8 (80.0-100.0) fL MCH 30.5 (25.0-34.0) pg MCHC 31.5 L (32.0-36.0) g/dL RDW Std Deviation 51.4 H (36.4-46.3) fL RDW Coeff of Adolfo 14.3 (11.5-14.5) % Plt Count 319 (130-400) K/uL MPV 9.6 (9.4-12.4) fL Immature Gran % (Auto) 0.4 % Neut % (Auto) 65.0 % Lymph % (Auto) 21.9 % [place] % (Auto) 5.9 % Eos % (Auto) 6.1 % Baso % (Auto) 0.7 % Neut # (Auto) 4.77 (1.40-6.50) K/uL Lymph # (Auto) 1.61 (1.20-3.40) K/uL [place] # (Auto) 0.43 (0.11-0.59) K/uL Eos # (Auto) 0.45 (0.00-0.50) K/uL Baso # (Auto) 0.05 (0.00-0.20) K/uL Immature Gran # (Auto) 0.03 (0.01-0.20) K/uL Sodium 137 (136-145) mmol/L Potassium 4.3 (3.5-5.1) mmol/L Chloride 97 L (98-107) mmol/L Carbon Dioxide 34 H (21-32) mmol/L Anion Gap 6 (3-11) BUN 45 H (6-23) mg/dl Creatinine 2.26 H (0.6-1.2) mg/dl Est Cr Clr Drug Dosing 31.0 ml/min eGFR 22.92 BUN/Creatinine Ratio 19.9 (10-20) Glucose 161 H (70-99(Fasting)) mg/dl Calcium 8.9 (8.6-10.3) mg/dl Total Bilirubin 0.3 (0.2-1.0) mg/dl AST 11 L (13-39) U/L ALT 9 (7-52) U/L Alkaline Phosphatase 93 (34-104) U/L Total Protein 8.2 (6.0-8.3) gm/dl Albumin 3.9 (3.4-5.0) gm/dl Globulin 4.3 H (2.5-4.0) gm/dl Albumin/Globulin Ratio 0.9 (0.9-2) Administered Medications Acetaminophen (Acetaminophen 325 Mg Tab) 650 mg PO Q4H PRN PRN Reason: pain/fever Stop: 05/12/25 22:44 Last Admin: 04/12/25 23:51 Dose: 650 mg Documented By: OSCAR Apixaban (Apixaban 5 Mg Tablet) 5 mg PO BID [facility] Stop: 05/12/25 22:44 Last Admin: 04/12/25 23:52 Dose: 5 mg Documented By: OSCAR Clonazepam (Clonazepam 0.5 Mg Tab) 0.5 mg PO TID [facility] Stop: 05/12/25 22:44 Last Admin: 04/12/25 23:51 Dose: 0.5 mg Documented By: OSCAR Fluticasone Propionate (Fluticasone Propionate Na Spr 16 Gm Btl) 2 sprays NA AMHS [facility] Stop: 05/12/25 22:44 Last Admin: 04/12/25 23:53 Dose: 2 sprays Documented By: OSCAR Gabapentin (Gabapentin 300 Mg Cap) 300 mg PO BID [facility] Stop: 05/12/25 22:44 Last Admin: 04/12/25 23:52 Dose: 300 mg Documented By: OSCAR Daptomycin 850 mg/ Syringe 17 mls @ 8.5 mls/min IV Q24H [facility]; Protocol Stop: 04/14/25 19:59 Last Admin: 04/12/25 19:51 Dose: 8.5 mls/min Documented By: KELLY Insulin Aspart (Insulin Aspart Per Unit Charge) 0 units SC ACHS [facility] Stop: 05/12/25 22:44 Last Admin: 04/12/25 23:53 Dose: 2 units Documented By: OSCAR Co-signed By: YUMIKO Magnesium Oxide (Magnesium Oxide 400 Mg Tab) 400 mg PO BID [facility] Stop: 05/12/25 22:44 Last Admin: 04/12/25 23:51 Dose: 400 mg Documented By: OSCAR Ropinirole HCl (Ropinirole Hcl 2 Mg Tablet) 2 mg PO HS [facility] Stop: 05/12/25 22:44 Last Admin: 04/12/25 23:52 Dose: 2 mg Documented By: OSCAR Senna/Docusate Sodium (Docusate Sodium/Senna 50/8.6mg Tab) 1 tab PO BID [facility] Stop: 05/12/25 22:44 Last Admin: 04/12/25 23:51 Dose: 1 tab Documented By: OSCAR Trazodone HCl (Trazodone Hcl 50 Mg Tab) 50 mg PO HS [facility] Stop: 05/12/25 22:44 Last Admin: 04/12/25 23:53 Dose: 50 mg Documented By: OSCAR Discontinued Medications Acetaminophen (Ofirmev) 1,000 mg in 100 mls @ 400 mls/hr IV NOW STA Stop: 04/12/25 21:09 Last Infusion: 04/12/25 21:40 Dose: Infused Documented By: Admin: 04/12/25 21:05 Dose: 400 mls/hr Documented By: CARMEN Discharge Plan Visit Data Chief Complaint: Need IV Start Stated Complaint: IV ANTIBOTICS DOC REFF ED Provider: Tri Armenta Discharge Problem: VRE (vancomycin resistant enterococcus) culture positive, UTI (urinary tract infection) Patient Disposition: Admitted As Inpatient Condition: Fair Discharge Instructions Interventions: ED Discharge Assessment Last Done: 04/12/25 22:07 Discharge Problem: UTI (urinary tract infection) Qualifiers: Urinary tract infection type: catheter-associated UTI Indwelling urinary catheter type: nephrostomy catheter Encounter type: initial encounter Qualified Code(s): T83.512A - Infection and inflammatory reaction due to nephrostomy catheter, initial encounter; N39.0 - Urinary tract infection, site not specified
[2025-04-12] MEDS: DAPTOmycin 850 MG in SYRINGE 0 ML IV SCH (19:51)
[2025-04-12] MEDS: ACETAMINOPHEN 1,000 MG/100 ML VIAL IV STA (21:05)
[2025-04-12] MEDS ORDERED: DEXTROSE 50% 50 ML SYRINGE IV PRN (22:45)
[2025-04-12] MEDS ORDERED: GLUCOSE 10 TAB/TUBE PO PRN (22:45)
[2025-04-12] MEDS ORDERED: GLUCOSE 40% GEL 15 GM TUBE PO PRN (22:45)
[2025-04-12] MEDS ORDERED: NON-FORMULARY MEDICATION (Albuterol Sulfate 5 mg/mL Solution For Nebulization) INH PRN (22:45)
[2025-04-12] MEDS ORDERED: CARBOHYDRATES FOR HYPOGLYCEMIA PO PRN (22:45)
[2025-04-12] MEDS ORDERED: ALBUTEROL 0.083% NEBU SOLN 3 ML VIAL INH PRN (22:45)
[2025-04-12] MEDS ORDERED: GLUCAGON FOR INJ 1 MG VIAL SQ PRN (22:45)
[2025-04-12] MEDS: MAGNESIUM OXIDE 400 MG TAB PO SCH (23:51)
[2025-04-12] MEDS: DOCUSATE SODIUM/SENNA 50/8.6MG TAB PO SCH (23:51)
[2025-04-12] MEDS: clonazePAM 0.5 MG TAB PO SCH (23:51)
[2025-04-12] MEDS: ACETAMINOPHEN 325 MG TAB PO PRN (23:51)
[2025-04-12] MEDS: GABAPENTIN 300 MG CAP PO SCH (23:52)
[2025-04-12] MEDS: APIXABAN 5 MG TABLET PO SCH (23:52)
[2025-04-12] MEDS: FLUTICASONE PROPIONATE NA SPR 16 GM BTL SCH (23:53)
[2025-04-12] MEDS: INSULIN ASPART PER UNIT CHARGE SC SCH (23:53)
--- NOTE | 2025-04-13 04:29 | History & Physical Report ---
Date of Service April 12, 2025 Assessment & Plan (1) VRE (vancomycin resistant enterococcus) culture positive: Plan: 70-year-old female with past medical history significant for type 2 diabetes, chronic hypoxemic respiratory failure, diabetic peripheral angiopathy, dyslipidemia, postsurgical hypothyroidism, secondary hyperparathyroidism, CKD stage III, interstitial lung disease, obstructive sleep apnea, morbid obesity, chronic heart failure with preserved ejection fraction, recurrent DVT, history of pulm embolism, status post IVC filter, paroxysmal atrial fibrillation, venous insufficiency, hypertension, right carotid artery stenosis asymptomatic, history of CAD, GERD, drug-induced constipation, B12 deficiency, nephrostomy status, retained ureteral stent, fibromyalgia, restless leg syndrome, osteoarthritis, lumbar radiculopathy, heparin-induced thrombocytopenia, macrocytic anemia, iron deficiency anemia, depression, anxiety comes because of UTI with VRE. Patient has history of possible UPJ obstruction managed with chronic ureteral stents. However she was having more rapid encrustation of her stents with frequent episodes of sepsis. She was thought to be poor surgical candidate for repair. In February 2025 again she presented with hydronephrosis and concern for UTI. At that time due to more frequent encrustation and sepsis episodes she was sent for conversion to nephrostomy tube which was done at outside facility. She is status post right nephrostomy. She followed up with urology. There is a plan to take out the stent and continue with nephrostomy tubes in anticipation of lowering the risk of sepsis . And today outpatient urine cultures grew VRE and was sent to hospital for IV antibiotics. Patient complains of some right flank pain. She says the nephrostomy tube is not working properly. Denies any fevers. Denies chest pain or shortness of breath. No cough. No headache. No runny nose or sore throat. She states she was recently treated for cellulitis of the right lower extremity. Hemodynamics are okay. VRE culture positive Acute UTI Right nephrostomy status History of right double-J ureteral stent ER started on daptomycin which will be continued Consult urology Close monitor Possible right lower extremity cellulitis Recently treated for right lower extremity cellulitis as outpatient per patient Right leg still mildly erythematous and warm to palpation On IV daptomycin as above Will monitor for response Chronic hypoxemic respiratory failure on home oxygen On 4 L oxygen Obstructive sleep apnea On CPAP nightly Diabetes Continue home long-acting insulin Hold Mounjaro Sliding scale Will monitor Morbid obesity Seems on Mounjaro 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 Possible ELSIE on CKD stage III Presented with creatinine of 2.2 Her baseline was 1.7 During recent admissions creatinine was in the twos To avoid nephrotoxic agents If worsening will hold Lasix Will follow labs Heart failure with preserved ejection fraction Patient says currently her Lasix was reduced to 20 mg daily used to be on lasix 60 mg twice daily in the past and in the recent past 40 mg daily On potassium supplement Will monitor for volume overload Paroxysmal atrial fibrillation A flutter On metoprolol succinate and Eliquis History of PE and recurrent DVT Status post IVC filter On Eliquis Carotid artery stenosis status post right TACR in August 2023 On Plavix and statin Hyperlipidemia on statin Fibromyalgia On duloxetine and gabapentin Depression and anxiety On clonazepam and duloxetine Hypothyroidism On Synthyroid GERD On Protonix Restless leg syndrome On ropinirole DVT prophylaxis On Eliquis Disposition Medical floor Full code. History of Present Illness Chief Complaint: UTI with VRE Primary Care Provider: Galdino Andujar DO 70-year-old female with past medical history significant for type 2 diabetes, chronic hypoxemic respiratory failure, diabetic peripheral angiopathy, dyslipidemia, postsurgical hypothyroidism, secondary hyperparathyroidism, CKD stage III, interstitial lung disease, obstructive sleep apnea, morbid obesity, chronic heart failure with preserved ejection fraction, recurrent DVT, history of pulm embolism, status post IVC filter, paroxysmal atrial fibrillation, venous insufficiency, hypertension, right carotid artery stenosis asymptomatic, history of CAD, GERD, drug-induced constipation, B12 deficiency, nephrostomy status, retained ureteral stent, fibromyalgia, restless leg syndrome, osteoarthritis, tess mbar radiculopathy, heparin-induced thrombocytopenia, macrocytic anemia, iron deficiency anemia, depression, anxiety comes because of UTI with VRE. Patient has history of possible UPJ obstruction managed with chronic ureteral stents. However she was having more rapid encrustation of her stents with frequent episodes of sepsis. She was thought to be poor surgical candidate for repair. In February 2025 again she presented with hydronephrosis and concern for UTI. At that time due to more frequent encrustation and sepsis episodes she was sent for conversion to nephrostomy tube which was done at outside facility. She is status post right nephrostomy. She followed up with urology. There is a plan to take out the stent and continue with nephrostomy tubes in anticipation of lowering the risk of sepsis . And today outpatient urine cultures grew VRE and was sent to hospital for IV antibiotics. Patient complains of some right flank pain. She says the nephrostomy tube is not working properly. Denies any fevers. Denies chest pain or shortness of breath. No cough. No headache. No runny nose or sore throat. She states she was recently treated for cellulitis of the right lower extremity. Hemodynamics are okay. Past medical history. As mentioned above Past surgical history. Right nephrostomy tubes. Right total knee arthroplasty. Colonoscopy. Injection of lumbosacral spine. Left knee arthroscopy. Thyroidectomy. Cholecystectomy. Repair of recurrent incisional hernia. Injection of sacroiliac joint. Suture large intestine with colostomy. Right carotid artery Transcath stent, vena cava filter. Ureteral stent placements Social history. Quit smoking 1996. Smoked 1 pack a day for 15 years. Alcohol rarely. No drug use. Family history. Brother has COPD. Father had lung cancer. Mother had liver cancer. Allergies Allergy/AdvReac Type Severity Reaction Status Date / Time morphine Allergy Severe Swelling, Verified 04/12/25 19:30 "Violent reaction- almost " pollen extracts Allergy Intermediate HAYFEVER Verified 04/12/25 19:30 SYMPTOMS heparin AdvReac Severe HEPARIN Verified 04/12/25 19:30 INDUCED THROMBOCYTOPENIA bupropion [From Wellbutrin] AdvReac Intermediate Recurrent Verified 04/12/25 19:30 falls as per patient codeine AdvReac Intermediate Hallucinati Verified 04/12/25 19:30 ons dapagliflozin [From Farxiga] AdvReac Intermediate Yeast Verified 04/12/25 19:30 infections empagliflozin AdvReac Intermediate Yeast Verified 04/12/25 19:30 [From Jardiance] infections hydrocodone [From Vicodin] AdvReac Intermediate Drowsy Verified 04/12/25 19:30 tetanus toxoid, adsorbed AdvReac Intermediate Passed Verified 04/12/25 19:30 out, "got sick" as child Home Medications Medication Instructions Recorded Confirmed Type clonazepam 0.5 mg tablet 0.5 mg PO TID 09/20/23 04/12/25 History furosemide 40 mg tablet 20 mg PO QAM 09/20/23 04/12/25 History magnesium oxide 400 mg (241.3 mg 400 mg PO BID 09/20/23 04/12/25 History magnesium) tablet ropinirole 2 mg tablet 2 mg PO HS 09/20/23 04/12/25 History sennosides 8.6 mg-docusate sodium 1 tab PO BID 09/20/23 04/12/25 History 50 mg tablet (Senna-Time S) tramadol 50 mg tablet 50 mg PO Q8 PRN Pain 09/20/23 04/12/25 History levothyroxine 200 mcg tablet 200 mcg PO DAILYBB #30 tabs 12/07/23 04/12/25 Rx cholecalciferol (vitamin D3) 25 25 mcg PO QAM 01/16/24 04/12/25 History mcg (1,000 unit) tablet clopidogrel 75 mg tablet 75 mg PO QAM 01/16/24 04/12/25 History duloxetine 60 mg capsule,delayed 60 mg PO QAM 12/09/24 04/12/25 History release fluticasone propionate 50 2 spray intranasal AMHS 12/09/24 04/12/25 History mcg/actuation nasal spray,suspension gabapentin 300 mg capsule 300 mg PO AMHS 12/09/24 04/12/25 History insulin aspart U-100 100 unit/mL See Rx Instructions .Route .COMPLEX 12/09/24 04/12/25 History (3 mL) subcutaneous pen (Novolog FlexPen U-100 Insulin aspart) insulin degludec 100 unit/mL (3 15 unit subcut QPM 12/09/24 04/12/25 History mL) subcutaneous pen (Tresiba FlexTouch U-100 insulin) rosuvastatin 5 mg tablet 5 mg PO QAM 12/09/24 04/12/25 History trazodone 50 mg tablet 50 mg PO HS 12/09/24 04/12/25 History apixaban 5 mg tablet (Eliquis) 5 mg PO BID #60 tabs 01/31/25 04/12/25 Rx metoprolol succinate 25 mg 37.5 mg (1.5 x 25 mg) PO QAM #30 01/31/25 04/12/25 Rx tablet,extended release 24 hr tabs tirzepatide 7.5 mg/0.5 mL 7.5 mg subcut WK 02/25/25 04/12/25 History subcutaneous pen injector (Kevan) Lactobacillus acidophilus 10 10,000 mmu cells PO DAILY 04/07/25 04/12/25 History billion cell capsule acetaminophen 500 mg tablet 500 - 1,000 mg PO Q8H PRN Pain 04/07/25 04/12/25 History (Tylenol Extra Strength) albuterol sulfate 2.5 mg/3 mL 2.5 mg inhalation DIRECTED PRN 04/07/25 04/12/25 History (0.083 %) solution for nebulization Shortness Of Breath Or Wheezing albuterol sulfate 5 mg/mL(0.5 %) 2.5 mg inhalation DIRECTED PRN 04/07/25 04/12/25 History solution for nebulization Shortness Of Breath Or Wheezing cyanocobalamin (vitamin B-12) 500 500 mcg PO DAILY 04/07/25 04/12/25 History mcg tablet (Vitamin B-12) duloxetine 30 mg capsule,delayed 30 mg PO QAM 04/07/25 04/12/25 History release pantoprazole 20 mg tablet,delayed 20 mg PO QAM 04/07/25 04/12/25 History release potassium chloride 10 mEq 10 meq PO BID 04/07/25 04/12/25 History capsule,extended release tamsulosin 0.4 mg capsule 0.4 mg PO QAM 04/07/25 04/12/25 History Past Med/Surg History Problem List (Updated 04/13/25 @ 00:19 by Tri Armenta MD) UTI (urinary tract infection) (Acute) VRE (vancomycin resistant enterococcus) culture positive (Acute) Abdominal pain, lower (Acute) Hematuria (Acute) Elevated troponin (Acute) ELSIE (acute kidney injury) (Acute) Sepsis (Acute) Insulin-requiring or dependent type II diabetes mellitus Atrial flutter Sinus tachycardia Volume overload Acute hypoxemic respiratory failure Bacteremia due to Klebsiella pneumoniae Chronic hypoxic respiratory failure, on home oxygen therapy Complicated urinary tract infection (Acute) Ureteral stent retained Acute UTI (urinary tract infection) (Acute) Following with urology Arthralgia (Acute) Fatigue (Acute) UPJ obstruction, acquired Left knee DJD Ambulatory dysfunction Fall (Acute) Hematuria Polypharmacy Hypoglycemia Chronic respiratory failure Urinary frequency (Acute) Lumbago with sciatica Lower extremity pain, bilateral Major depression, recurrent Sciatica (Acute) Non compliance w medication regimen Chronic diastolic heart failure Multiple falls Subclavian artery stenosis Cerebrovascular duplex study 06/2023: Retrograde flow in the right vertebral artery. 50-69% proximal right subclavian artery stenosis. Antegrade flow in the left vertebral artery. Normal flow in the left subclavian artery. Carotid stenosis, right Cerebrovascular duplex 07/11/23: 80-99% R ICA stenosis. No hemodynamically significant stenosis in the LICA. Left radial head fracture Obesity hypoventilation syndrome Pickwickian syndrome Generalized body aches Weakness (Acute) Orthostasis (Acute) Hip pain, right (Acute) Knee pain, right (Acute) Abdominal pain (Acute) Acute on chronic kidney failure (Acute) Per urology records Per records elevated creatinine stable since 12/2023 CKD (chronic kidney disease), stage III (Chronic) Follows with [facility] Hypomagnesemia (Acute) CHF (congestive heart failure) (Acute) Hepatosplenomegaly (Acute) ELISSA on CPAP (Chronic) CPAP + 3L O2 (O2 is continuous) HTN (hypertension) (Chronic) HLD (hyperlipidemia) (Chronic) Morbid obesity (Chronic) 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, [facility] then life flight to [place] > "resolved" Depression with anxiety (Chronic) Hypothyroidism (Chronic) GERD (gastroesophageal reflux disease) (Chronic) RLS (restless legs syndrome) (Chronic) Presence of IVC filter (Chronic) 2008 Diabetes (Chronic) Fibromyalgia (Chronic) Medical History Bilateral flank pain Acute kidney injury superimposed on chronic kidney disease Leukocytosis Hydronephrosis History of pulmonary embolism 2008 s/p zoraida filter History of DVT (deep vein thrombosis) 2008 (during ICU [place] admission/PNA) Subclavian arterial stenosis (06/2023) Cerebrovascular duplex study 06/2023: Retrograde flow in the right vertebral artery. 50-69% proximal right subclavian artery stenosis. Antegrade flow in the left vertebral artery. Normal flow in the left subclavian artery. Hx of pulmonary edema Pickwickian syndrome Orthostasis Lumbago with sciatica Left knee DJD Hx of hydronephrosis Hyperlipemia Hypertension HIT (heparin-induced thrombocytopenia) (2008) - [facility] then life flight to [place] > "resolved" Deep vein thrombosis (DVT) Recurrent per records On Eliquis Initially occurred during ICU [place] admission, s/p zoraida filter [address] Right LE doppler 11/2023 showed no DVT within right LE Hepatosplenomegaly Hx of fracture radius Depression with anxiety Chronic diastolic (congestive) heart failure follos with Dr. Woodall @ [facility] Hx of carotid artery stenosis surgery - R TCAR 09/09/23 Arthralgia Ambulatory dysfunction uses cane and electric scooter History of infection with vancomycin resistant Enterococcus (VRE) (12/2023) VRE UTI during inpatient admit at [facility] Hx of Clostridium difficile infection (12/2023) during inpatient admit to [facility], treated, no current sx Hx of constipation Hx of vertigo occasional Hx: UTI (urinary tract infection) frequent Hx of fall (11/2023) last fall was November 2023 - no injuries Diabetes IDDM ELISSA on CPAP CPAP + 3L O2 (O2 is continuous) Hx of septic shock (12/2023) due to UTI - admit to [facility] Presence of IVC filter (2008) [facility], continues to be in place due to current clots behind right knee Hx pulmonary embolism (2008) s/p zoraida filter GERD (gastroesophageal reflux disease) RLS (restless legs syndrome) History of pneumonia (2008) x 8 weeks, [facility] then tx to [facility], "put me in a coma, flew me to [facility], had a trach then went to [facility] with trach" Trach removed Sep 2009 Fibromyalgia Hypothyroidism Hx of pyelonephritis (12/2023) CKD (chronic kidney disease), stage III follows [facility] Nephrology Hx of congestive heart failure takes lasix, seethaddeus Garcia Chronic hypoxemic respiratory failure O2 3-4L at all times - sees Pulm @ [facility] Fig[facility]o Transient hypotension Mitral valve stenosis Mild per cardio records (due to severe calcification) Echo 06/2023: Borderline mild mitral stenosis secondary to severe mitral annular calcification, follows [facility] cardio Dr. Woodall Cataract, bilateral Neuropathy feet On home oxygen therapy 3-4L continuous Surgical History History of colon resection (2008) secondary to R colon perforation, resected treated with colostomy and eventual reversal in 2008 Hx of tracheostomy (06/2009) (per [facility] records), secondary to acute respiratory failure in setting of PNA, reversed a few months later in 2009 Hx of cystoscopy (11/25/23) with stent placement right side due to infection History of transcarotid artery revascularization (TCAR) (08/2023) right, [facility] History of right knee joint replacement (Unknown) > 10 years Hx laparoscopic cholecystectomy Hx of thyroidectomy (2011) total Family history of reaction to anesthesia Brother/niece- PONV Brother- "wakes up violent" History of colostomy reversal (10/1997) History of tooth extraction History of arthroscopy (Unknown) left ankle , > 10 years History of incisional hernia repair Nausea and vomiting after administration of anesthetic agent History of colonoscopy Family History Father , age 74 Lung cancer Mother , age 45 Cirrhosis Social History Smoking Status: Former smoker Tobacco Type: Cigarettes Cigarettes Per Day: 1996; Second Hand Exposure: Yes; Do You Dip or Chew Tobacco: No; Tobacco Cessation Education Requested by Patient: No Hx Alcohol Use: No Hx Substance Use: No Preferred Language: Sami Communication Ability: Effective Pipe Processor Required: No Beliefs That Will Affect Care: None marital status: Single Current Living Situation: Alone Current Living Situation Comment: Lives by self in apartment How many Children do You have: 0 Other Information That Helps Us Care for You: No Feels Safe at Home: Yes Safety Concerns: Feels Safe At This Time Assistive Devices: CPAP, Oxygen - Continuous and Walker Review of Systems Review of Systems: All systems reviewed & are unremarkable except as noted in HPI & below Physical Exam Physical Exam: General- Not in acute distress Head- atraumatic Eyes- PERRL. ENT- oropharynx clear Neck- supple, no JVD. Lungs- clear to auscultation no wheezing or crackles Heart- regular rhythm; no murmur, no gallop. Abdomen- normal bowel sounds, soft, mild diffuse discomfort, no distension Extremities- b/l lower extremity edema present. right lower extremity mildly erythematous and warm to palpation Neuro- alert, oriented PERRL, no facial palsy; no dysarthria; moves e xtremities Results & Data Results & Data Vital Signs (Past 12 Hours) Vital Signs Temp Pulse Pulse Resp BP BP Pulse Ox 04/12/25 19:10 72 04/12/25 19:10 73 20 162/98 H 96 04/12/25 17:53 36.7 C 79 18 119/44 L 97 O2 Del Method O2 Flow Rate 04/12/25 19:10 04/12/25 19:10 Nasal Cannula 3 04/12/25 17:53 Nasal Cannula 3 Diagnostic Findings Laboratory Results WBC 7.34 K/ul (4.8-10.8) 04/12/25 18:04 RBC 3.71 M/uL (4.20-5.40) L 04/12/25 18:04 Hgb 11.3 g/dl (12.0-16.0) L 04/12/25 18:04 Hct 35.9 % (37.0-47.0) L 04/12/25 18:04 MCV 96.8 fL (80.0-100.0) 04/12/25 18: MCH 30.5 pg (25.0-34.0) 04/12/25 18: MCHC 31.5 g/dL (32.0-36.0) L 04/12/25 18:04 RDW Std Deviation 51.4 fL (36.4-46.3) H 04/12/25 18:04 RDW Coeff of Adolfo 14.3 % (11.5-14.5) 04/12/25 18:04 Plt Count 319 K/uL (130-400) 04/12/25 18:04 MPV 9.6 fL (9.4-12.4) 04/12/25 18:04 Immature Gran % (Auto) 0.4 % 04/12/25 18:04 Neut % (Auto) 65.0 % 04/12/25 18:04 Lymph % (Auto) 21.9 % 04/12/25 18:04 Craig % (Auto) 5.9 % 04/12/25 18:04 Eos % (Auto) 6.1 % 04/12/25 18:04 Baso % (Auto) 0.7 % 04/12/25 18:04 Neut # (Auto) 4.77 K/uL (1.40-6.50) 04/12/25 18:04 Lymph # (Auto) 1.61 K/uL (1.20-3.40) 04/12/25 18:04 Craig # (Auto) 0.43 K/uL (0.11-0.59) 04/12/25 18:04 Eos # (Auto) 0.45 K/uL (0.00-0.50) 04/12/25 18:04 Baso # (Auto) 0.05 K/uL (0.00-0.20) 04/12/25 18:04 Immature Gran # (Auto) 0.03 K/uL (0.01-0.20) 04/12/25 18:04 Sodium 137 mmol/L (136-145) 04/12/25 18:04 Potassium 4.3 mmol/L (3.5-5.1) 04/12/25 18:04 Chloride 97 mmol/L (98-107) L 04/12/25 18:04 Carbon Dioxide 34 mmol/L (21-32) H 04/12/25 18:04 Anion Gap 6 (3-11) 04/12/25 18:04 BUN 45 mg/dl (6-23) H 04/12/25 18:04 Creatinine 2.26 mg/dl (0.6-1.2) H 04/12/25 18:04 Est Cr Clr Drug Dosing 31.0 ml/min 04/12/25 18:04 eGFR 22.92 04/12/25 18:04 BUN/Creatinine Ratio 19.9 (10-20) 04/12/25 18:04 Glucose 161 mg/dl (70-99(Fasting)) H 04/12/25 18:04 POC Glucose 84 mg/dl (70-99) 04/12/25 23:31 Calcium 8.9 mg/dl (8.6-10.3) 04/12/25 18:04 Total Bilirubin 0.3 mg/dl (0.2-1.0) 04/12/25 18:04 AST 11 U/L (13-39) L 04/12/25 18:04 ALT 9 U/L (7-52) 04/12/25 18:04 Alkaline Phosphatase 93 U/L (34-104) 04/12/25 18:04 Total Protein 8.2 gm/dl (6.0-8.3) 04/12/25 18:04 Albumin 3.9 gm/dl (3.4-5.0) 04/12/25 18:04 Globulin 4.3 gm/dl (2.5-4.0) H 04/12/25 18:04 Albumin/Globulin Ratio 0.9 (0.9-2) 04/12/25 18:04 Code Status & VTE Plan VTE Prophylaxis Plan VTE Prophylaxis will be ordered: Yes
[2025-04-13 05:56] LABS: Hematocrit (blood only) 32.6 % (37.0-47.0); Hemoglobin 10.3 g/dl (12.0-16.0); Immature Granulocytes # (auto) 0.03 K/uL (0.01-0.20); Immature Granulocytes % (auto) 0.4 %; Mean Corpuscular Hemoglobin 30.2 pg (25.0-34.0); Mean Corpuscular Volume 95.6 fL (80.0-100.0); Platelet Count 259 K/uL (130-400); RDW Standard Deviation 50.4 fL (36.4-46.3); Red Blood Count 3.41 M/uL (4.20-5.40); White Blood Count 7.34 K/ul (4.8-10.8)
[2025-04-13 06:16] LABS: Anion Gap 7.0 (3-11); Blood Urea Nitrogen 45.0 mg/dl (6-23); Calcium 8.4 mg/dl (8.6-10.3); Carbon Dioxide 31.0 mmol/L (21-32); Chloride 102.0 mmol/L (98-107); Creatinine Clr Calc Pharmacy 32.3 ml/min; Glucose 108.0 mg/dl (70-99(Fasting)); Magnesium 1.9 mg/dl (1.7-2.4); Potassium 4.2 mmol/L (3.5-5.1); Sodium 140.0 mmol/L (136-145)
[2025-04-13] MEDS: LEVOTHYROXINE SODIUM 200 MCG TABLET PO SCH (06:20)
[2025-04-13 07:39] LABS: Hemoglobin A1C 7.0 % (4.5-5.6)
--- NOTE | 2025-04-13 07:48 | Hospitalist Progress Note ---
Date of Service April 13, 2025 Assessment & Plan (1) VRE (vancomycin resistant enterococcus) culture positive: Plan: 70-year-old female with past medical history significant for type 2 diabetes, chronic hypoxemic respiratory failure, diabetic peripheral angiopathy, dyslipidemia, postsurgical hypothyroidism, secondary hyperparathyroidism, CKD stage III, interstitial lung disease, obstructive sleep apnea, morbid obesity, chronic heart failure with preserved ejection fraction, recurrent DVT, history of pulm embolism, status post IVC filter, paroxysmal atrial fibrillation, venous insufficiency, hypertension, right carotid artery stenosis asymptomatic, history of CAD, GERD, drug-induced constipation, B12 deficiency, nephrostomy status, retained ureteral stent, fibromyalgia, restless leg syndrome, osteoarthritis, lumbar radiculopathy, heparin-induced thrombocytopenia, macrocytic anemia, iron deficiency anemia, depression, anxiety comes because of UTI with VRE. Patient history of possible UPJ obstruction managed with chronic ureteral stents. However she was having more rapid encrustation of her stents with frequent episodes sepsis. She was thought to be poor surgical candidate for repair. She followed up with urology. There is a plan to take out the stent and continue with nephrostomy tubes in anticipation of lowering the risk of sepsis . And today outpatient urine cultures showed VRE and was sent to hospital for IV antibiotics. Patient complains of some right flank pain. She says the nephrostomy tube is not working properly. Denies any fevers. Denies chest pain or shortness of breath. No cough. No headache. No runny nose or sore throat. She states she was recently treated for cellulitis of the right lower extremity. Hemodynamics are okay. Numerous hydronephrosis episodes and recurrent UTI. Original UPJ obstruction with stent removal; Original stent placed 11/2023 with four stent exchanges (04/2024, 11/2024 x2 due to encrustation) Patient saw PCP 04/12 for hydronephrosis and recurrent UTI and for evaluation of nephrostomy tube function. Patient reportedly noted decreased drainage in the last 3 days with right flank discomfort at insertion site. Patient had a CTAP at outside facility indicating proper placement on 04/07. Complicated UTI: VRE positive urine History of UPJ obstruction Urine culture positive for VRE Started on daptomycin in the ED; continue for now and await infectious disease guidance Recently completed a course of Keflex Acute right CVA tenderness Infectious Disease consult placed Previously pansensitive to ceftriaxone with E. coli infection History of urosepsis; afebrile this admission without leukocytosis Contact isolation ELSIE: H/O chronic obstruction of UPJ s/p neph tube placement 02/2025 @ [facility] Serum creatinine 2.14; baseline 1.5-2.2 Patient admitted for infection with severe history of chronic obstruction with UPJ obstruction and severe infections including infection with VRE. Nephrostomy tube volume decreased over past 3 days. Discussed with Urology on the phone; suspect some of the drainage issues are positional--> switch over to leg bag with stat lock and drain to gravity Limit manipulation as much as possible Intermittently irrigate the nephrostomy tube with 23 cc sterile water to maintain patency; per urology. Communication order placed Fluid challenge with 1L NS x 1 bag Takes Lasix 20 mg for HFpEF; Recent decrease of dosing on 03/26 from 60mg --> 40 mg --> 20 mg due to worsening kidney function on 03/26/25; may require increased dosing tomorrow; monitor Intake/Output Monitor for patient to develop septic symptoms including fever leukocytosis If urosepsis is considered would obtain repeat CTAP and possible transfer for IR evaluation Patient actively having infection issues and findings consistent with VRE. Overall patient is a poor surgical candidate Possible RLE cellulitis: Recently treated for right lower extremity cellulitis as outpatient per patient Right leg still mildly erythematous and warm to palpation On IV daptomycin as above Will monitor for response Pt on Eliquis; low clot burden risk Chronic hypoxemic respiratory failure: EILSSA: On 4 L oxygen; wears 24/7 Wears CPAP HS; brought her own from home DM2: Continue home long-acting insulin Hold Kevan STAFFORD SSI A1C 7.0; ranges 6.8-7.5 over past year. Noncompliance; may benefit from CDE Morbid obesity Seems on Mounjaro Follow-up with PCP and marriage therapist May be contributing factor to positioning/draining HFpEF: Patient says currently her Lasix was reduced to 20 mg daily Used 60 mg BID in the past and in the recent past 40 mg daily On KcL supplement Monitor for fluid overload Most recent ECHO: 01/2025: ECHO 60-65% LVWMN with MR/TR Paroxysmal atrial fibrillation A flutter On metoprolol succinate and Eliquis; continue History of PE and recurrent DVT Status post IVC filter On Eliquis; continue Carotid artery stenosis status post right TACR in August 2023 On Plavix and statin Hyperlipidemia Takes Rosuvastatin;continue Fibromyalgia: On duloxetine and gabapentin; continue Depression and anxiety On clonazepam and duloxetine Hypothyroidism: On Synthroid; continue GERD On Protonix; continue Restless leg syndrome: On ropinirole; continue Disposition: Code status: Full DVT Prophylaxis: Prince Glaser spent a total of 58 minutes coordinating, documenting, and providing care for this patient excluding time spent inthe performance of separately billed ser vices or time spent by another provider/QHP. Admission and Anticipated Discharge Date Admission Date: April 12, 2025 Supervising Physician Co-Signing Physician Notes 04/13/2025 The patient was seen and examined in medical floor She is status post right nephrostomy tube sometime in February of this year and also left ureteric stent placement Admitted with VRE urinary infection he still complains today of some urinary symptoms Denies any right renal angle pain, any fever or chills On examination Morbidly obese, lying in bed without any apparent distress Remains hemodynamically stable Examination revealed nephrostomy tube site intact though that draining has been decreased as per the patient Other system examination remained unremarkable Her labs, medications and imaging studies reviewed # VRE UTI on appropriate medications and initiate ID input and recommendation Decreased output from the nephrostomy tube on the right side with recent decrease in Lasix as an outpatient Will give cautious amount of IV fluid and monitor for any output from nephrostomy tube Appreciate urology input May need to transfer the patient for change of nephrostomy tube if it does not drain Agree with assessment and plan as outlined above by TATIANA Merchant and take the full responsibility of care in the hospital Dr Haylie Crooks Subjective Pt dangling on her hospital bed; nursing in the room. Pt c/o right flank pain. Reportedly decreased output x3-4 days from nephrostomy tube Lengthy discussion on the phone with Urology; see below. Pt denies fever, SOB, chest pain, N/V/D. Review of Systems Review of Systems: Neuro: (-) Falls, trauma, slurred speech HEENT: (-) BURROWS, dizziness, dysphagia, visual or auditory changes CV: (-) CP, palpitations, swelling Resp: (-) SOB GI: (-) appetite changes, N/V/D, bowel changes : (+) right renal pain Skin: (-) rashes Psych: (-) anxiety, depression Physical Exam Physical Exam: Neuro: AAOx4, PERRLA, no aphagia, memory changes, CNII-XII grossly intact HEENT: head normocephalic, moist mucus membranes CV: S1/S2, (-) M/G/R, (-) edema, cap refill < 3 seconds Resp: Lungs CTA in all steiner. On RA GI: Abdomen S/NT/ND, Ax4 bowel sounds, (-) CVA tenderness : (+) R CVA tenderness. nephrostomy tube intact draining minimally to right leg bag. Musculoskeletal: 5/5 B/L UE strength, 5/5 B/L LE strength. No gait disturbance Skin: (-) rashes , (+) erythema BL LE Psych: euthymic mood Results & Data Results & Data Vital Signs (Past 12 Hours) Vital Signs Temp Pulse Pulse Resp BP BP Pulse Ox 04/13/25 07:32 36 C L 77 18 123/54 L 99 04/13/25 00:41 79 22 99 04/12/25 22:45 04/12/25 22:45 36.5 C 79 22 161/80 H 99 04/12/25 22:45 36.5 C 79 22 161/80 H 99 04/12/25 22:28 36.5 C 73 18 161/80 H 99 04/12/25 22:07 79 20 170/87 H 100 04/12/25 21:23 72 16 144/63 H 99 O2 Del Method O2 Flow Rate 04/13/25 07:32 Nasal Cannula 3 04/13/25 00:41 2 04/12/25 22:45 Nasal Cannula 3 04/12/25 22:45 Nasal Cannula 3 04/12/25 22:45 Nasal Cannula 3 04/12/25 22:28 Nasal Cannula 3 04/12/25 22:07 Nasal Cannula 3 04/12/25 21:23 Nasal Cannula 3 Laboratory Results Short CBC 04/12/25 04/13/25 Range/Units 18:04 05:43 WBC 7.34 7.34 (4.8-10.8) K/ul Hgb 11.3 L 10.3 L (12.0-16.0) g/dl Hct 35.9 L 32.6 L (37.0-47.0) % Plt Count 319 259 (130-400) K/uL BMP 04/12/25 04/13/25 18:04 05:43 Sodium 137 140 Potassium 4.3 4.2 Chloride 97 L 102 Carbon Dioxide 34 H 31 BUN 45 H 45 H Creatinine 2.26 H 2.14 H Glucose 161 H 108 H Calcium 8.9 8.4 L Liver Function 04/12/25 Range/Units 18:04 Total Bilirubin 0.3 (0.2-1.0) mg/dl AST 11 L (13-39) U/L ALT 9 (7-52) U/L Alkaline Phosphatase 93 (34-104) U/L Albumin 3.9 (3.4-5.0) gm/dl
[2025-04-13] MEDS: ROSUVASTATIN CALCIUM 5 MG TAB PO SCH (09:00)
[2025-04-13] MEDS: TAMSULOSIN HCL 0.4 MG CAP PO SCH (09:01)
[2025-04-13] MEDS: METOPROLOL SUCC 25MG EXT REL TAB PO SCH (09:01)
[2025-04-13] MEDS: CHOLECALCIFEROL 25 MCG (1000 UNITS) TAB PO SCH (09:01)
[2025-04-13] MEDS: CYANOCOBALAMIN (B-12) 500 MCG TABLET PO SCH (09:02)
[2025-04-13] MEDS: CLOPIDOGREL BISULFATE 75 MG TAB PO SCH (09:02)
[2025-04-13] MEDS: ADVANCED PROBIOTIC 625 MG CAPSULE PO SCH (09:03)
[2025-04-13] MEDS: FUROSEMIDE 20 MG TAB PO SCH (09:27)
[2025-04-13] MEDS: POTASSIUM CHLORIDE 10 MEQ TABCR PO SCH (09:28)
--- NOTE | 2025-04-13 09:38 | Urology Consultation ---
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 Patient actively having infection issues and findings consistent with VRE. Patient is on daptomycin and broad-spectrum coverage. Nephrostomy tube placed due to severe encrustation of stents and issues with tolerating. Patient has had issues with these as well. Is not having considerable leakage. Does have decreased drainage. Patient independently assessed, examined, interviewed, and evaluated. Note as above was completely generated by myself. Patient's vitals and labs were all reviewed. Pertinent values in the HPI and plan section. Hemoglobin 10.3. Creatinine 2.14. White count 7.34. Creatinine decreased slightly from admission. Vitals are currently stable and patient is afebrile. Most recent temp was 36.0. Blood pressure is mildly elevated at 123/54 is 99% on 3 L nasal cannula. Imaging was reviewed interpreted by myself. CT from April 07 was reviewed. At that time still with stent in position additionally nephrostomy tube did appear to be in the renal pelvis but was a somewhat complicated course. Hydronephrosis had significant improvement with the nephrostomy tube placement. Otherwise agree with read. Vitals were reviewed. Discussed findings extensively with patient. Reviewed with nurse practitioner from the hospitalist team as well as consulting physicians/team. Patient's complicated medical and surgical history was reviewed and summarized above. Patient's surgical, medical, social, and family history were all reviewed with pertinent values as above. Discussed patient's current diagnosis as well as concerns and issues. Reviewed different options moving forward. Discussed potential risks and benefits as well as possible options and concerns. Reviewed potential surgical options and interventions. Discussed potential issues and concerns related to intervention. Risk and benefits were discussed extensively with patient . Discussed potential risks related to anesthesia. Discussed risks of bleeding infection and injury. Reviewed extensively options. Did discuss with the patient's bedside nurses on the floor as well as the nurse practitioner for the hospitalist team. Some of the drainage issues may be positional as patient is laying supine and trying to utilize a leg bag. Would recommend drainage to gravity to increase drainage from that tube. Would also try to limit manipulation is much as possible but is option to intermittently irrigate the nephrostomy tube with 2 to 3 cc of either sterile water or saline to try to maintain patency. Is getting out urine from the nephrostomy tube but has waxed and waned in the volume. Will need to monitor volume closely. Do recommend continuing close antibiotic coverage and close monitoring for infection. If patient does develop significant fever at that point would likely need to be transferred for reevaluation and possible exchange of the nephrostomy tube. If patient's creatinine drastically increases or if urine output stops completely or if there is drainage then around the nephrostomy tube due to lack of drainage from the nephrostomy tube would likely also need to consider possible transfer. The patient developed more severe bleeding or other issues would likely as well need to consider. If any of these issues do develop would also recommend likely repeating the imaging for reevaluation. Otherwise we will plan to continue to monitor. Did encourage both patient as well as nursing to avoid excess manipulation of the nephrostomy tube. Can use usual drain standard protocol for management for cleaning around the site as well as monitoring. If any major development of major issues can reevaluate otherwise we will plan to continue with observation. Patient complicated medical and surgical histories reviewed and summarized above all imaging was reviewed and interpreted by myself and all labs were reviewed with pertinent positives in the HPI and plan section. Can plan for for outpatient follow-up with Dr. Arriaga after hospitalization and completion of course of treatment and monitoring while inpatient. History of Present Illness Attending Physician: Mignon Crooks MD History of Present Illness New consultation for patient with UTI/Pyelo, discomfort, and ill feelings. Patient longtime patient of Dr. Arriaga. Has severe issues with UPJ obstruction and encrustation of stents. Patient had failed multiple stent exchanges and had went on to have a nephrostomy tube placed. Patient had worsening issues with bleeding infection and bother. Presented to the ER with blowing output from the nephrostomy tube. Was admitted due to ill feelings and increasing issues. Patient developed sudden onset of pain into flank going down and radiating into groin and back in waves comes and goes. Can be severe at times. Discussed and reviewed patient's family history for any history of issues, infections, and disease. Also, discussed patient's medical/surgery history especially related to any history of urinary issues or stone disease. Patient was admitted and is undergoing observation with broad spectrum IV antibiotics. Patient is currently on daptomycin for history of VRE with current findings of active infection. Patient's pain has been better controlled. Is continuing to drain into a leg bag even when in the supine position. Did discuss this may be somewhat hindering drainage. Has not had considerable leaking from around the catheter. Allergies Allergy/AdvReac Type Severity Reaction Status Date / Time morphine Allergy Severe Swelling, Verified 04/12/25 19:30 "Violent reaction- almost " pollen extracts Allergy Intermediate HAYFEVER Verified 04/12/25 19:30 SYMPTOMS heparin AdvReac Severe HEPARIN Verified 04/12/25 19:30 INDUCED THROMBOCYTOPENIA bupropion [From Wellbutrin] AdvReac Intermediate Recurrent Verified 04/12/25 19:30 falls as per patient codeine AdvReac Intermediate Hallucinati Verified 04/12/25 19:30 ons dapagliflozin [From Farxiga] AdvReac Intermediate Yeast Verified 04/12/25 19:30 infections empagliflozin AdvReac Intermediate Yeast Verified 04/12/25 19:30 [From Jardiance] infections hydrocodone [From Vicodin] AdvReac Intermediate Drowsy Verified 04/12/25 19:30 tetanus toxoid, adsorbed AdvReac Intermediate Passed Verified 04/12/25 19:30 out, "got sick" as child Home Medications Medication Instructions Recorded Confirmed Type clonazepam 0.5 mg tablet 0.5 mg PO TID 09/20/23 04/12/25 History furosemide 40 mg tablet 20 mg PO QAM 09/20/23 04/12/25 History magnesium oxide 400 mg (241.3 mg 400 mg PO BID 09/20/23 04/12/25 History magnesium) tablet ropinirole 2 mg tablet 2 mg PO HS 09/20/23 04/12/25 History sennosides 8.6 mg-docusate sodium 1 tab PO BID 09/20/23 04/12/25 History 50 mg tablet (Senna-Time S) tramadol 50 mg tablet 50 mg PO Q8 PRN Pain 09/20/23 04/12/25 History levothyroxine 200 mcg tablet 200 mcg PO DAILYBB #30 tabs 12/07/23 04/12/25 Rx cholecalciferol (vitamin D3) 25 25 mcg PO QAM 01/16/24 04/12/25 History mcg (1,000 unit) tablet clopidogrel 75 mg tablet 75 mg PO QAM 01/16/24 04/12/25 History duloxetine 60 mg capsule,delayed 60 mg PO QAM 12/09/24 04/12/25 History release fluticasone propionate 50 2 spray intranasal AMHS 12/09/24 04/12/25 History mcg/actuation nasal spray,suspension gabapentin 300 mg capsule 300 mg PO AMHS 12/09/24 04/12/25 History insulin aspart U-100 100 unit/mL See Rx Instructions .Route .COMPLEX 12/09/24 04/12/25 History (3 mL) subcutaneous pen (Novolog FlexPen U-100 Insulin aspart) insulin degludec 100 unit/mL (3 15 unit subcut QPM 12/09/24 04/12/25 History mL) subcutaneous pen (Tresiba FlexTouch U-100 insulin) rosuvastatin 5 mg tablet 5 mg PO QAM 12/09/24 04/12/25 History trazodone 50 mg tablet 50 mg PO HS 12/09/24 04/12/25 History apixaban 5 mg tablet (Eliquis) 5 mg PO BID #60 tabs 01/31/25 04/12/25 Rx metoprolol succinate 25 mg 37.5 mg (1.5 x 25 mg) PO QAM #30 01/31/25 04/12/25 Rx tablet,extended release 24 hr tabs tirzepatide 7.5 mg/0.5 mL 7.5 mg subcut WK 02/25/25 04/12/25 History subcutaneous pen injector (Kevan) Lactobacillus acidophilus 10 10,000 mmu cells PO DAILY 04/07/25 04/12/25 History billion cell capsule acetaminophen 500 mg tablet 500 - 1,000 mg PO Q8H PRN Pain 04/07/25 04/12/25 History (Tylenol Extra Strength) albuterol sulfate 2.5 mg/3 mL 2.5 mg inhalation DIRECTED PRN 04/07/25 04/12/25 History (0.083 %) solution for nebulization Shortness Of Breath Or Wheezing albuterol sulfate 5 mg/mL(0.5 %) 2.5 mg inhalation DIRECTED PRN 04/07/25 04/12/25 History solution for nebulization Shortness Of Breath Or Wheezing cyanocobalamin (vitamin B-12) 500 500 mcg PO DAILY 04/07/25 04/12/25 History mcg tablet (Vitamin B-12) duloxetine 30 mg capsule,delayed 30 mg PO QAM 04/07/25 04/12/25 History release pantoprazole 20 mg tablet,delayed 20 mg PO QAM 04/07/25 04/12/25 History release potassium chloride 10 mEq 10 meq PO BID 04/07/25 04/12/25 History capsule,extended release tamsulosin 0.4 mg capsule 0.4 mg PO QAM 04/07/25 04/12/25 History Patient History Medical History Bilateral flank pain Acute kidney injury superimposed on chronic kidney disease Leukocytosis Hydronephrosis History of pulmonary embolism 2008 s/p zoraida filter History of DVT (deep vein thrombosis) 2008 (during ICU [facility] admission/PNA) Subclavian arterial stenosis (06/2023) Cerebrovascular duplex study 06/2023: Retrograde flow in the right vertebral artery. 50-69% proximal right subclavian artery stenosis. Antegrade flow in the left vertebral artery. Normal flow in the left subclavian artery. Hx of pulmonary edema Pickwickian syndrome Orthostasis Lumbago with sciatica Left knee DJD Hx of hydronephrosis Hyperlipemia Hypertension HIT (heparin-induced thrombocytopenia) (2008) hx - [facility] then life flight to [facility] > "resolved" Deep vein thrombosis (DVT) Recurrent per records On Eliquis Initially occurred during ICU [facility] admission, s/p zoraida filter [address] Right LE doppler 11/2023 showed no DVT within right LE Hepatosplenomegaly Hx of fracture radius Depression with anxiety Chronic diastolic (congestive) heart failure follos with Dr. 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) VRE UTI during inpatient admit at [facility] Hx of Clostridium difficile infection (12/2023) during inpatient admit to [facility], treated, no current sx Hx of constipation Hx of vertigo occasional Hx: UTI (urinary tract infection) frequent Hx of fall (11/2023) last fall was November 2023 - no injuries Diabetes IDDM ELISSA on CPAP CPAP + 3L O2 (O2 is continuous) Hx of septic shock (12/2023) due to UTI - admit to [facility] Presence of IVC filter (2008) [facility], continues to be in place due to current clots behind right knee Hx pulmonary embolism (2008) s/p zoraida filter GERD (gastroesophageal reflux disease) RLS (restless legs syndrome) History of pneumonia (2008) x 8 weeks, [facility] then tx to [facility], "put me in a coma, flew me to [facility], had a trach then went to skilled nursing with trach" Trach removed Sep 2009 Fibromyalgia Hypothyroidism Hx of pyelonephritis (12/2023) CKD (chronic kidney disease), stage III follows [facility] Nephrology Hx of congestive heart failure takes lasix, sees Dr. Jose C Garcia Chronic hypoxemic respiratory failure O2 3-4L at all times - sees Pulm @ [facility] Transient hypotension Mitral valve stenosis Mild per cardio records (due to severe calcification) Echo 06/2023: Borderline mild mitral stenosis secondary to severe mitral annular calcification, follows [facility] cardio Dr. Woodall Cataract, bilateral Neuropathy feet On home oxygen therapy 3-4L continuous Surgical History History of colon resection (2008) secondary to R colon perforation, resected treated with colostomy and eventual reversal in 2008 Hx of tracheostomy (06/2009) (per [facility] records), secondary to acute respiratory failure in setting of PNA, reversed a few months later in 2009 Hx of cystoscopy (11/25/23) with stent placement right side due to infection History of transcarotid artery revascularization (TCAR) (08/2023) right, [facility] History of right knee joint replacement (Unknown) > 10 years Hx laparoscopic cholecystectomy Hx of thyroidectomy (2011) total Family history of reaction to anesthesia Brother/niece- PONV Brother- "wakes up violent" History of colostomy reversal (10/1997) History of tooth extraction History of arthroscopy (Unknown) left ankle , > 10 years History of incisional hernia repair Nausea and vomiting after administration of anesthetic agent History of colonoscopy Family History Father , age 74 Lung cancer Mother , age 45 Cirrhosis Social History Smoking Status: Former smoker Tobacco Type: Cigarettes Cigarettes Per Day: 1996; Second Hand Exposure: Yes; Do You Dip or Chew Tobacco: No; Tobacco Cessation Education Requested by Patient: No Hx Alcohol Use: No Hx Substance Use: No Preferred Language: Pashto Communication Ability: Effective Decorator Lighting Fixtures Required: No Beliefs That Will Affect Care: None marital status: Single Current Living Situation: Alone Current Living Situation Comment: Lives by self in apartment How many Children do You have: 0 Other Information That Helps Us Care for You: No Feels Safe at Home: Yes Safety Concerns: Feels Safe At This Time Assistive Devices: CPAP, Oxygen - Continuous and Walker Review of Systems Review of Systems: All systems reviewed & are unremarkable except as noted in HPI & below Physical Exam Physical Exam: General: Alert and oriented x 3 in no acute distress. Obese. HEENT: Normocephalic Atraumatic. Inspection normal. Cranial Nerves 2-12 Grossly intact. Nares are clear. Neck is supple. Normal inspection of face. Normal inspection of neck. Neurologic: No deficits on inspection. Baseline for motor function and sensory. Psychologic: Normal affect. Respiratory: Nonlabored. No use of accessory muscles. No tachypnea or dyspnea. Cardiovascular: No tachycardia Skin: [place] and Dry. No rashes or visible lesions. Extremities: Moving without issues. No motor deficits on inspection Lymphatics: No edema Abdomen: Soft Non-distended. Obese. No rebound or guarding. : Nephrostomy tube in position with clear urine. No leaking around nephrostomy tube Results & Data Vital Signs (Past 12 Hours) Vital Signs Temp Pulse Pulse Resp BP BP Pulse Ox 04/13/25 07:32 36 C L 77 18 123/54 L 99 04/13/25 00:41 79 22 99 04/12/25 22:45 04/12/25 22:45 36.5 C 79 22 161/80 H 99 04/12/25 22:45 36.5 C 79 22 161/80 H 99 04/12/25 22:28 36.5 C 73 18 161/80 H 99 04/12/25 22:07 79 20 170/87 H 100 O2 Del Method O2 Flow Rate 04/13/25 07:32 Nasal Cannula 3 04/13/25 00:41 2 04/12/25 22:45 Nasal Cannula 3 04/12/25 22:45 Nasal Cannula 3 04/12/25 22:45 Nasal Cannula 3 04/12/25 22:28 Nasal Cannula 3 04/12/25 22:07 Nasal Cannula 3 PG Care Time/CCT Total # of Minutes Spent Total Time Spent with Patient: Total time spent is greater than 50% in coordination of care (as documented) at patient's floor/unit and/or counseling patient: Coding Level of Care Code 36780 INT INP/OBS CARE MIN Diagnoses UTI (urinary tract infection) T83.512A; N39.0 Encounter type: initial encounter Indwelling urinary catheter type: nephrostomy catheter Urinary tract infection type: catheter-associated UTI VRE (vancomycin resistant enterococcus) culture positive Z22.39 Abdominal pain, lower R10.30 Hematuria R31.9 ELSIE (acute kidney injury) N17.9 Sepsis A41.9; R65.20; N17.9 Acute renal failure type: unspecified Sepsis acute organ dysfunction status: with acute organ dysfunction Sepsis type: sepsis due to unspecified organism Severe sepsis acute organ dysfunction type: acute renal failure Severe sepsis shock status: without septic shock Ureteral stent retained Z96.0 Acute UTI (urinary tract infection) N39.0 Complicated urinary tract infection N39.0 Volume overload E87.70 (1) UTI (urinary tract infection) Encounter type: initial encounter Indwelling urinary catheter type: nephrostomy catheter Urinary tract infection type: catheter-associated UTI Qualified Code(s): T83.512A - Infection and inflammatory reaction due to nephrostomy catheter, initial encounter; N39.0 - Urinary tract infection, site not specified (6) Sepsis Acute renal failure type: unspecified Sepsis acute organ dysfunction status: with acute organ dysfunction Sepsis type: sepsis due to unspecified organism Severe sepsis acute organ dysfunction type: acute renal failure Severe sepsis shock status: without septic shock Qualified Code(s): A41.9 - Sepsis, unspecified organism; R65.20 - Severe sepsis without septic shock; N17.9 - Acute kidney failure, unspecified
[2025-04-13] MEDS: SODIUM CHLORIDE 0.9% 1,000 ML IV SCH (11:37)
[2025-04-13] MEDS: NEOMYCIN/POLYMYX/BACITR OINT 15 GM TUBE EXT PRN (14:06)
[2025-04-13] MEDS: LANTUS PER UNIT CHARGE SQ SCH (20:49)
[2025-04-13] MEDS: POLYETHYLENE (MIRALAX) 17 GM PACK PO PRN (22:33)
[2025-04-14 07:00] LABS: Hematocrit (blood only) 32.6 % (37.0-47.0); Hemoglobin 10.3 g/dl (12.0-16.0); Mean Corpuscular Hemoglobin 30.3 pg (25.0-34.0); Mean Corpuscular Volume 95.9 fL (80.0-100.0); Platelet Count 304 K/uL (130-400); RDW Standard Deviation 50.9 fL (36.4-46.3); Red Blood Count 3.40 M/uL (4.20-5.40); White Blood Count 9.96 K/ul (4.8-10.8)
[2025-04-14 07:36] LABS: Alanine Aminotransferase 6.0 U/L (7-52); Albumin Globulin Ratio 1.0 (0.9-2); Alkaline Phosphatase 74.0 U/L (34-104); Anion Gap 6.0 (3-11); Bilirubin,Total 0.3 mg/dl (0.2-1.0); Blood Urea Nitrogen 38.0 mg/dl (6-23); Calcium 8.6 mg/dl (8.6-10.3); Carbon Dioxide 30.0 mmol/L (21-32); Chloride 103.0 mmol/L (98-107); Creatinine Clr Calc Pharmacy 36.0 ml/min; Globulin 3.5 gm/dl (2.5-4.0); Glucose 118.0 mg/dl (70-99(Fasting)); Potassium 4.0 mmol/L (3.5-5.1); Sodium 139.0 mmol/L (136-145); Total Protein 6.9 gm/dl (6.0-8.3)
--- NOTE | 2025-04-14 11:10 | Hospitalist Progress Note ---
Date of Service April 14, 2025 Assessment & Plan (1) VRE (vancomycin resistant enterococcus) culture positive: Plan: 70-year-old female with past medical history significant for type 2 diabetes, chronic hypoxemic respiratory failure, diabetic peripheral angiopathy, dyslipidemia, postsurgical hypothyroidism, secondary hyperparathyroidism, CKD stage III, interstitial lung disease, obstructive sleep apnea, morbid obesity, chronic heart failure with preserved ejection fraction, recurrent DVT, history of pulm embolism, status post IVC filter, paroxysmal atrial fibrillation, venous insufficiency, hypertension, right carotid artery stenosis asymptomatic, history of CAD, GERD, drug-induced constipation, B12 deficiency, nephrostomy status, retained ureteral stent, fibromyalgia, restless leg syndrome, osteoarthritis, lumbar radiculopathy, heparin-induced thrombocytopenia, macrocytic anemia, iron deficiency anemia, depression, anxiety comes because of UTI with VRE. Patient history of possible UPJ obstruction managed with chronic ureteral stents. However she was having more rapid encrustation of her stents with frequent episodes sepsis. She was thought to be poor surgical candidate for repair. She followed up with urology. There is a plan to take out the stent and continue with nephrostomy tubes in anticipation of lowering the risk of sepsis . And today outpatient urine cultures showed VRE and was sent to hospital for IV antibiotics. Patient complains of some right flank pain. She says the nephrostomy tube is not working properly. Denies any fevers. Denies chest pain or shortness of breath. No cough. No headache. No runny nose or sore throat. She states she was recently treated for cellulitis of the right lower extremity. Hemodynamics are okay. Numerous hydronephrosis episodes and recurrent UTI. Original UPJ obstruction with stent removal; Original stent placed 11/2023 with four stent exchanges (04/2024, 11/2024 x2 due to encrustation) Patient saw PCP 04/12 for hydronephrosis and recurrent UTI and for evaluation of nephrostomy tube function. Patient reportedly noted decreased drainage in the last 3 days with right flank discomfort at insertion site. Patient had a CTAP at outside facility indicating proper placement on 04/07. Complicated UTI: VRE positive urine H/O UPJ obstruction Urine culture positive for VRE Started on daptomycin in the ED; continue for now and await infectious disease guidance Recently completed a course of Keflex Acute right CVA tenderness ID consult placed Previously pansensitive to ceftriaxone with E. coli infection H/O urosepsis; afeb this admission without leukocytosis Contact isolation ELSIE: H/O chronic obstruction of UPJ s/p neph tube placement 02/2025 @ [facility] Serum creatinine 2.14; baseline 1.5-2.2 Patient admitted for infection with severe history of chronic obstruction with UPJ obstruction and severe infections including infection with VRE. Nephrostomy tube volume decreased over past 3 days. Discussed with Urology on the phone; suspect some of the drainage issues are positional--> switch over to leg bag with stat lock and drain to gravity Limit manipulation as much as possible Intermittently irrigate the nephrostomy tube with 23 cc sterile water to maintain patency; per urology. Communication order placed Fluid challenge with 1L NS x 1 bag Takes Lasix 20 mg for HFpEF; Recent decrease of dosing on 03/26 from 60mg --> 40 mg --> 20 mg due to worsening kidney function on 03/26/25; additional dose of 20 mg given today (total of 40mg);assess in AM Encourage pt to have bariatric chair and abdalla to lay on floor for draining Intake/Output Monitor for patient to develop septic symptoms including fever leukocytosis If urosepsis is considered would obtain repeat CTAP and possible transfer for IR evaluation Patient actively having infection issues and findings consistent with VRE. Overall patient is a poor surgical candidate Repeat CTAP scheduled for 04/15 per Urology Possible RLE cellulitis: Recently treated for right lower extremity cellulitis as outpatient per patient Right leg still mildly erythematous and warm to palpation On IV daptomycin as above Will monitor for response Pt on Eliquis; low clot burden risk Chronic hypoxemic respiratory failure: ELISSA: On 4 L oxygen; wears 24/7 Wears CPAP HS; brought her own from home DM2: Continue home long-acting insulin Hold Kevan STAFFORD SSI A1C 7.0; ranges 6.8-7.5 over past year. 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 May be contributing factor to positioning/draining HFpEF: Patient says currently her Lasix was reduced to 20 mg daily Used 60 mg BID in the past and in the recent past 40 mg daily On KcL supplement Monitor for fluid overload Most recent ECHO: 01/2025: ECHO 60-65% LVWMN with MR/TR Paroxysmal atrial fibrillation A flutter On metoprolol succinate and Eliquis; continue History of PE and recurrent DVT Status post IVC filter On Eliquis; continue Carotid artery stenosis status post right TACR in August 2023 On Plavix and statin Hyperlipidemia Takes Rosuvastatin;continue Fibromyalgia: On duloxetine and gabapentin; continue Depression and anxiety On clonazepam and duloxetine Hypothyroidism: On Synthroid; continue GERD On Protonix; continue Restless leg syndrome: On ropinirole; continue Disposition: Code status: Full DVT Prophylaxis: Eliquis I spent a total of 56 minutes coordinating, documenting, and providing care for this patient excluding time spent inthe performance of separately billed services or time spent by another provider/QHP. Admission and Anticipated Discharge Date Admission Date: April 12, 2025 Supervising Physician Co-Signing Physician Notes 04/13/2025 The patient was seen and examined in medical floor She is status post right nephrostomy tube sometime in February of this year and also left ureteric stent placement Admitted with VRE urinary infection he still complains today of some urinary symptoms Denies any right renal angle pain, any fever or chills On examination Morbidly obese, lying in bed without any apparent distress Remains hemodynamically stable Examination revealed nephrostomy tube site intact though that draining has been decreased as per the patient Other system examination remained unremarkable Her labs, medications and imaging studies reviewed # VRE UTI on appropriate medications and initiate ID input and recommendation Decreased output from the nephrostomy tube on the right side with recent decrease in Lasix as an outpatient Will give cautious amount of IV fluid and monitor for any output from nephrostomy tube Appreciate urology input May need to transfer the patient for change of nephrostomy tube if it does not drain Agree with assessment and plan as outlined above by TATIANA Merchant and take the full responsibility of care in the hospital Dr Haylie Crooks 04/14/2025 Patient was seen and examined medical floor , She has been out of bed on a chair and denies any significant symptoms except ongoing pain in the lower quadrant especially. Without nausea no vomiting Drainage from the nephrostomy tube has decreased according to the patient No increasing pain in the right renal angle Remains hemodynamically stable with unremarkable systemic exam except mild tenderness in the hypogastrium VRE UTI with ongoing intravenous antibiotic Right nephrostomy status and will have CT scan of the abdomen and pelvis to evaluate the status of the stent on the right side Other medical conditions remain stable Appreciate urology input and recommendation Agree with assessment and plan as outlined above by TATIANA Mcintosh and take the full responsibility of care in the hospital DR Haylie Crooks Subjective Pt sitting in her hospital bedside chair. Flank pain improved from yesterday. Pt denies fever, SOB, chest pain, N/V/D. See A/P for further details. Review of Systems Review of Systems: Neuro: (-) Falls, trauma, slurred speech HEENT: (-) BURROWS, dizziness, dysphagia, visual or auditory changes CV: (-) CP, palpitations, swelling Resp: (-) SOB GI: (-) appetite changes, N/V/D, bowel changes : (-) flank pain Skin: (-) rashes Psych: (-) anxiety, depression Physical Exam Physical Exam: Neuro: AAOx4, PERRLA, no aphagia, memory changes, CNII-XII grossly intact HEENT: head normocephalic, moist mucus membranes CV: S1/S2, (-) M/G/R, (-) edema, cap refill < 3 seconds Resp: Lungs CTA in all steiner. On RA GI: Abdomen S/NT/ND, Ax4 bowel sounds, (-) CVA tenderness : (+) R CVA tenderness improved. nephrostomy tube intact draining minimally to right leg bag. Musculoskeletal: 5/5 B/L UE strength, 5/5 B/L LE strength. No gait disturbance Skin: (-) rashes , (+) erythema BL LE Psych: euthymic mood Results & Data Results & Data Vital Signs (Past 12 Hours) Vital Signs Temp Pulse Resp BP Pulse Ox O2 Del Method O2 Flow Rate 04/14/25 07:35 36.9 C 79 20 147/65 H 98 Nasal Cannula 3 Laboratory Results Short CBC 04/14/25 Range/Units 06:20 WBC 9.96 (4.8-10.8) K/ul Hgb 10.3 L (12.0-16.0) g/dl Hct 32.6 L (37.0-47.0) % Plt Count 304 (130-400) K/uL BMP 04/14/25 06:20 Sodium 139 Potassium 4.0 Chloride 103 Carbon Dioxide 30 BUN 38 H Creatinine 1.92 H Glucose 118 H Calcium 8.6 Liver Function 07/20/25 Range/Units 06:20 Total Bilirubin 0.3 (0.2-1.0) mg/dl AST 10 L (13-39) U/L ALT 6 L (7-52) U/L Alkaline Phosphatase 74 (34-104) U/L Albumin 3.4 (3.4-5.0) gm/dl
[2025-04-14] MEDS: FUROSEMIDE 20 MG TAB PO ONE (17:37)
[2025-04-15 08:40] LABS: Hematocrit (blood only) 33.6 % (37.0-47.0); Hemoglobin 10.3 g/dl (12.0-16.0); Mean Corpuscular Hemoglobin 29.6 pg (25.0-34.0); Mean Corpuscular Volume 96.6 fL (80.0-100.0); Platelet Count 305 K/uL (130-400); RDW Standard Deviation 50.8 fL (36.4-46.3); Red Blood Count 3.48 M/uL (4.20-5.40); White Blood Count 9.56 K/ul (4.8-10.8)
--- NOTE | 2025-04-15 09:03 | CT Scan Report ---
CT OF THE ABDOMEN AND PELVIS WITHOUT CONTRAST CLINICAL HISTORY: Stent placement. COMPARISON STUDY: CT of the abdomen and pelvis April 07, 2025. TECHNIQUE: Axial images of the abdomen and pelvis were obtained without IV contrast. Images were revi ewed in the axial, sagittal, and coronal planes. Automated exposure control was utilized for the kiesha dy. A dose lowering technique was utilized adhering to the principles of ALARA. FINDINGS: Subpleural reticulation with groundglass opacities and mosaic attenuation within the lower lungs remains unchanged. No pneumatosis, free air or portal venous gas is present. A right percutaneo us nephrostomy catheter and right ureteral stent remains in place. Right hydronephrosis on CT of April 07, 2025 has resolved. There is no left hydronephrosis. There is minimal stranding within the right renal sinus. This is unchanged. No ureteral calculi are identified. Evaluation of the remainder of th e abdomen and pelvis is suboptimal on this unenhanced exam. Liver, spleen, adrenal glands and pancrea s are unremarkable. Several bowel containing ventral hernias are present. There is no resultant bowel obstruction. There is a moderate amount stool within the colon and rectum. There are no fluid collec tions. There is no free fluid. IVC filters in place. A 1.3 cm presacral nodule remains unchanged from earlier exams. This is benign given stability. IMPRESSION: 1. Resolution of right hydronephrosis. Right percutaneous nephrostomy catheter and right ureteral carolin nt in place. 2. No bowel obstruction. Several bowel containing ventral hernias. 3. Moderate amount of stool within the colon and rectum. ACT 112: Negative or not required by law. Electronically signed by: David Lugo M.D. 04/15/2025 9:01 AM
[2025-04-15 09:24] LABS: Anion Gap 6.0 (3-11); Blood Urea Nitrogen 36.0 mg/dl (6-23); Calcium 9.0 mg/dl (8.6-10.3); Carbon Dioxide 32.0 mmol/L (21-32); Chloride 102.0 mmol/L (98-107); Creatinine Clr Calc Pharmacy 32.9 ml/min; Glucose 108.0 mg/dl (70-99(Fasting)); Potassium 4.1 mmol/L (3.5-5.1); Sodium 140.0 mmol/L (136-145)
--- NOTE | 2025-04-15 09:58 | Urology Progress Note ---
Date of Service April 15, 2025 Assessment & Plan (1) UTI (urinary tract infection): (2) VRE (vancomycin resistant enterococcus) culture positive: Plan 70yo female with a right nephrostomy tube and right ureteral stent admitted with complicated UTI/VRE positive culture. - CT today reviewed and showed resolution of right hydronephrosis. Right percutaneous nephrostomy catheter and right ureteral stent in place. - She is afebrile with stable vitals at present. - Labs today show no leukocytosis and creatinine 2.10. - Urine culture 04/05 and 04/07 grew Enterococcus VRE. - Continues on Daptomycin. ID has been consulted. - Nephrostomy tube intact and draining clear yellow urine. Output appears adequate. - Continue supportive care and antibiotic therapy per ID recommendations. - Maintain neph tube and monitor output. - If patient develops any acute changes or issues with the nephrostomy tube, may need to consider transfer for possible exchange of the nephrostomy tube. - Urology will follow along, please contact us with any questions/concerns. Admission and Anticipated Discharge Date Admission Date: April 12, 2025 Subjective Pt seen at bedside today. NAD. Nephrostomy tube draining clear yellow. Report some leakage earlier from neph tube drainage bag connection. Has changed over to leg bag and no further issues with leakage. No fevers. Reports some discomfort to right flank/abdomen. Review of Systems Constitutional: as per Subjective / HPI Genitourinary: as per Subjective / HPI Physical Exam Constitutional: no acute distress Respiratory: no respiratory distress and no labored breathing Neurologic: awake Psychiatric: A+Ox3, euthymic affect Genitourinary: Right Nephrostomy tube draining clear yellow urine Results & Data Vital Signs (Past 12 Hours) Vital Signs Temp Pulse Pulse Resp BP Pulse Ox O2 Del Method 04/15/25 07:36 81 14 127/72 98 Nasal Cannula 04/15/25 07:15 36.7 C 84 18 164/76 H 94 Nasal Cannula O2 Flow Rate 04/15/25 07:36 3 04/15/25 07:15 3 PG Care Time/CCT Total # of Minutes Spent Total Time Spent with Patient: Total time spent is greater than 50% in coordination of care (as documented) at patient's floor/unit and/or counseling patient: Coding Level of Care Code 09995 SUB INP/OBS CARE 2/35MIN Diagnoses UTI (urinary tract infection) T83.512A; N39.0 Encounter type: initial encounter Indwelling urinary catheter type: nephrostomy catheter Urinary tract infection type: catheter-associated UTI VRE (vancomycin resistant enterococcus) culture positive Z22.39 (1) UTI (urinary tract infection) Encounter type: initial encounter Indwelling urinary catheter type: nephrostomy catheter Urinary tract infection type: catheter-associated UTI Qualified Code(s): T83.512A - Infection and inflammatory reaction due to nephrostomy catheter, initial encounter; N39.0 - Urinary tract infection, site not specified
--- NOTE | 2025-04-15 11:02 | Hospitalist Progress Note ---
Date of Service April 15, 2025 Assessment & Plan (1) VRE (vancomycin resistant enterococcus) culture positive: Plan: This is a 70-year-old female with past medical history significant for type 2 diabetes, chronic hypoxemic respiratory failure, diabetic peripheral angiopathy, dyslipidemia, postsurgical hypothyroidism, secondary hyperparathyroidism, CKD stage III, interstitial lung disease, obstructive sleep apnea, morbid obesity, chronic heart failure with preserved ejection fraction, recurrent DVT, history of pulm embolism, status post IVC filter, paroxysmal atrial fibrillation, venous insufficiency, hypertension, right carotid artery stenosis asymptomatic, history of CAD, GERD, drug-induced constipation, B12 deficiency, nephrostomy status, retained ureteral stent, fibromyalgia, restless leg syndrome, osteoarthritis, lumbar radiculopathy, heparin-induced thrombocytopenia, macrocytic anemia, iron deficiency anemia, depression, anxiety comes because of UTI with VRE. Patient history of possible UPJ obstruction managed with chronic ureteral stents . However she was having more rapid encrustation of her stents with frequent episodes sepsis. She was thought to be poor surgical candidate for repair. She followed up with urology. There is a plan to take out the stent and continue with nephrostomy tubes in anticipation of lowering the risk of sepsis . And today outpatient urine cultures showed VRE and was sent to hospital for IV antibiotics. Patient complains of some right flank pain. Numerous hydronephrosis episodes and recurrent UTI. Original UPJ obstruction with stent removal; Original stent placed 11/2023 with four stent exchanges (04/2024, 11/2024 x2 due to encrustation) Patient saw PCP 04/12 for hydronephrosis and recurrent UTI and for evaluation of nephrostomy tube function. Patient reportedly noted decreased drainage in the last 3 days with right flank discomfort at insertion site. Patient had a CTAP at outside facility indicating proper placement on 04/07. Complicated UTI VRE positive urine H/O UPJ obstruction Urine culture positive for VRE Started on daptomycin in the ED; continue for now and await infectious disease guidance Recently completed a course of Keflex Acute right CVA tenderness slightly improved Contact isolation ELSIE H/O chronic obstruction of UPJ s/p neph tube placement 02/2025 @ [facility] Serum creatinine 2.10 today; baseline 1.5-2.2 - previously mid- but ~2-2.4 since February Patient admitted for infection with severe history of chronic obstruction with UPJ obstruction and severe infections including infection with VRE Nephrostomy tube volume decreased over past 3 days Discussed with Urology; suspect some of the drainage issues are positional--> switch over to leg bag with stat lock and drain to gravity Limit manipulation as much as possible. Intermittently irrigate the nephrostomy tube with 23 cc sterile water to maintain patency; per urology. Communication order placed Takes Lasix 20 mg for HFpEF; recent decrease of dosing on 03/26 from 60mg --> 40 mg --> 20 mg due to worsening kidney function on 03/26/25; additional dose of 20 mg given today (total of 40mg); assess in AM Encourage pt to have bariatric chair and abdalla to lay on floor for draining If urosepsis is considered, would obtain repeat CTAP and possible transfer for IR evaluation Patient actively having infection issues and findings consistent with VRE Overall patient is a poor surgical candidate Repeat CTAP scheduled for 04/15 per Urology - Resolution of right hydronephrosis. Right percutaneous nephrostomy catheter and right ureteral stent in place. No bowel obstruction. Several bowel containing ventral hernias Routine nephro consult given ELSIE vs worsening CKD, lasix recs Constipation Moderate amount of stool within the colon and rectum seen on CT abd/pelvis Augmented bowel regimen Possible RLE cellulitis Recently treated for right lower extremity cellulitis as outpatient per patient Right leg still mildly erythematous and warm to palpation On IV daptomycin as above Will monitor for response Pt on Eliquis; low clot burden risk Chronic hypoxemic respiratory failure ELISSA On 4 L oxygen; wears 24/7 Wears CPAP HS; brought her own from home DM2 Continue home long-acting insulin Hold [facility] SSI A1C 7.0; ranges 6.8-7.5 over past year. Noncompliance; may benefit from CDE Morbid obesity Seems on Mounjaro Follow-up with PCP and hand candy dipper May be contributing factor to positioning/draining HFpEF: Patient says currently her Lasix was reduced to 20 mg daily Used 60 mg BID in the past and in the recent past 40 mg daily On KcL supplement Monitor for fluid overload Most recent ECHO: 01/2025: ECHO 60-65% LVWMN with MR/TR Paroxysmal atrial fibrillation A flutter On metoprolol succinate and Eliquis; continue History of PE and recurrent DVT Status post IVC filter On Eliquis; continue Carotid artery stenosis status post right TACR in August 2023 On Plavix and statin Hyperlipidemia Takes Rosuvastatin;continue Fibromyalgia: On duloxetine and gabapentin; continue Depression and anxiety On clonazepam and duloxetine Hypothyroidism: On Synthroid; continue GERD On Protonix; continue Restless leg syndrome: On ropinirole; continue Disposition: Code status: Full DVT Prophylaxis: Eliquis PT/OT recommending home with HH, awaiting ID recs, monitoring kidney function Patient seen in collaboration with Dr. Crooks. Please see addendum. I spent a total of 50 minutes coordinating, documenting, and providing care for this patient excluding time spent in the performance of separately billed services or time spent by another provider/QHP. Admission and Anticipated Discharge Date Admission Date: April 12, 2025 Supervising Physician Co-Signing Physician Notes 04/13/2025 The patient was seen and examined in medical floor She is status post right nephrostomy tube sometime in February of this year and also left ureteric stent placement Admitted with VRE urinary infection he still complains today of some urinary symptoms Denies any right renal angle pain, any fever or chills On examination Morbidly obese, lying in bed without any apparent distress Remains hemodynamically stable Examination revealed nephrostomy tube site intact though that draining has been decreased as per the patient Other system examination remained unremarkable Her labs, medications and imaging studies reviewed # VRE UTI on appropriate medications and initiate ID input and recommendation Decreased output from the nephrostomy tube on the right side with recent decrease in Lasix as an outpatient Will give cautious amount of IV fluid and monitor for any output from nephrostomy tube Appreciate urology input May need to transfer the patient for change of nephrostomy tube if it does not drain Agree with assessment and plan as outlined above by TATIANA Merchant and take the full responsibility of care in the hospital Dr Haylie Crooks 04/14/2025 Patient was seen and examined medical floor , She has been out of bed on a chair and denies any significant symptoms except ongoing pain in the lower quadrant especially. Without nausea no vomiting Drainage from the nephrostomy tube has decreased according to the patient No increasing pain in the right renal angle Remains hemodynamically stable with unremarkable systemic exam except mild tenderness in the hypogastrium VRE UTI with ongoing intravenous antibiotic Right nephrostomy status and will have CT scan of the abdomen and pelvis to evaluate the status of the stent on the right side Other medical conditions remain stable Appreciate urology input and recommendation Agree with assessment and plan as outlined above by TATIANA Mcintosh and take the full responsibility of care in the hospital DR Haylie Crooks 04/15/2025 The patient was seen and examined in medical floor She has been feeling little better and is still has minimal pain involving the hypogastrium The nephrostomy tube seems to be draining and CT scan did show resolution of the hydronephrosis Awaiting ID evaluation for recommendation antibiotic Lying in bed without any acute distress and remains hemodynamically stable Creatinine noted to be little high and has been on Lasixnephrology has been requested to comment on Lasix and kidney function Left ureteric stent and right nephrostomy are working Agree with assessment and plan as outlined above by Varsha Duncan PA-C and take the full responsibility of care in the hospital Dr Haylie Crooks Subjective Pt sitting in her hospital bedside chair. Still having R CVA TTP but improved from previous. Transitioned to leg bag overnight due to leakage and patient notes increased output in bag. Pt denies fever, SOB, chest pain, N/V/D. Review of Systems Review of Systems: At least ten systems reviewed and negative except as noted in the HPI. Physical Exam Physical Exam: Gen: WD/WN, NAD, sitting in bedside chair, A&Ox3, obese HEENT: Normocephalic, atraumatic, mucous membranes moist Lung: Clear to Auscultation bilaterally Heart: Regular rate, regular rhythm Abdomen: Soft, NT, ND +BS x 4 : R CVA TTP, nephrostomy tube draining to leg bag Extremities: no edema Skin: Warm, 1+ BLE edema with faint overlying erythema Results & Data Results & Data Vital Signs (Past 12 Hours) Vital Signs Temp Pulse Pulse Resp BP Pulse Ox O2 Del Method 04/15/25 08:00 Nasal Cannula 04/15/25 07:36 81 14 127/72 98 Nasal Cannula 04/15/25 07:15 36.7 C 84 18 164/76 H 94 Nasal Cannula O2 Flow Rate 04/15/25 08:00 3 04/15/25 07:36 3 04/15/25 07:15 3 Laboratory Results Short CBC 04/15/25 Range/Units 07:38 WBC 9.56 (4.8-10.8) K/ul Hgb 10.3 L (12.0-16.0) g/dl Hct 33.6 L (37.0-47.0) % Plt Count 305 (130-400) K/uL BMP 04/15/25 07:38 Sodium 140 Potassium 4.1 Chloride 102 Carbon Dioxide 32 BUN 36 H Creatinine 2.10 H Glucose 108 H Calcium 9.0 Diagnostic Findings Abdomen/Pelvis CT 04/15/25 08:00 CT OF THE ABDOMEN AND PELVIS WITHOUT CONTRAST CLINICAL HISTORY: Stent placement. COMPARISON STUDY: CT of the abdomen and pelvis April 07, 2025. TECHNIQUE: Axial images of the abdomen and pelvis were obtained without IV contrast. Images were reviewed in the axial, sagittal, and coronal planes. Automated exposure control was utilized for the study. A dose lowering technique was utilized adhering to the principles of ALARA. FINDINGS: Subpleural reticulation with groundglass opacities and mosaic attenuation within the lower lungs remains unchanged. No pneumatosis, free air or portal venous gas is present. A right percutaneous nephrostomy catheter and right ureteral stent remains in place. Right hydronephrosis on CT of April 07, 2025 has resolved. There is no left hydronephrosis. There is minimal stranding within the right renal sinus. This is unchanged. No ureteral calculi are identified. Evaluation of the remainder of the abdomen and pelvis is suboptimal on this unenhanced exam. Liver, spleen, adrenal glands and pancreas are unremarkable. Several bowel containing ventral hernias are present. There is no resultant bowel obstruction. There is a moderate amount stool within the colon and rectum. There are no fluid collections. There is no free fluid. IVC filters in place. A 1.3 cm presacral nodule remains unchanged from earlier exams. This is benign given stability. IMPRESSION: 1. Resolution of right hydronephrosis. Right percutaneous nephrostomy catheter and right ureteral stent in place. 2. No bowel obstruction. Several bowel containing ventral hernias. 3. Moderate amount of stool within the colon and rectum. ACT 112: Negative or not required by law. Electronically signed by: David Lugo M.D. 04/15/2025 9:01 AM
[2025-04-16 07:08] LABS: Hematocrit (blood only) 31.7 % (37.0-47.0); Hemoglobin 10.0 g/dl (12.0-16.0); Mean Corpuscular Hemoglobin 30.1 pg (25.0-34.0); Mean Corpuscular Volume 95.5 fL (80.0-100.0); Platelet Count 295 K/uL (130-400); RDW Standard Deviation 48.7 fL (36.4-46.3); Red Blood Count 3.32 M/uL (4.20-5.40); White Blood Count 8.50 K/ul (4.8-10.8)
[2025-04-16 07:32] LABS: Anion Gap 5.0 (3-11); Blood Urea Nitrogen 36.0 mg/dl (6-23); Calcium 8.9 mg/dl (8.6-10.3); Carbon Dioxide 32.0 mmol/L (21-32); Chloride 102.0 mmol/L (98-107); Creatinine Clr Calc Pharmacy 35.8 ml/min; Glucose 89.0 mg/dl (70-99(Fasting)); Potassium 3.9 mmol/L (3.5-5.1); Sodium 139.0 mmol/L (136-145)
--- NOTE | 2025-04-16 09:39 | Urology Progress Note ---
Date of Service April 16, 2025 Assessment & Plan (1) UTI (urinary tract infection): (2) VRE (vancomycin resistant enterococcus) culture positive: Plan 70yo female with a right nephrostomy tube and right ureteral stent admitted with complicated UTI/VRE positive culture. - CT 04/15/25 showed resolution of right hydronephrosis. Right percutaneous nephrostomy catheter and right ureteral stent in place. - She is afebrile with stable vitals at present. - Labs today show no leukocytosis and creatinine 1.93. - Urine culture 04/05 and 04/07 grew Enterococcus VRE. - Continues on Daptomycin. ID has been consulted. - Nephrostomy tube intact and draining clear yellow urine. Output appears adequate. - Continue supportive care and antibiotic therapy per ID recommendations. - Maintain neph tube and monitor output. Has f/u with IR in [place] in May per her report. - If patient develops any acute changes or issues with the nephrostomy tube, will need to consider transfer for possible exchange of the nephrostomy tube. - Urology will follow along, please contact us with any questions/concerns. Admission and Anticipated Discharge Date Admission Date: April 12, 2025 Subjective Pt seen at bedside today. NAD. Nephrostomy tube draining clear yellow urine. Reports one occurrence of mild hematuria last night but urine has been clear since. No fevers. Denies significant pain. Review of Systems Constitutional: as per Subjective / HPI Genitourinary: as per Subjective / HPI Physical Exam Constitutional: no acute distress Respiratory: no respiratory distress and no labored breathing Neurologic: awake Psychiatric: A+Ox3, euthymic affect Genitourinary: Right Nephrostomy tube draining clear yellow urine Results & Data Vital Signs (Past 12 Hours) Vital Signs Temp Pulse Resp BP Pulse Ox O2 Del Method O2 Flow Rate 04/16/25 07:09 36.5 C 72 20 111/70 99 Nasal Cannula 3 04/16/25 07:05 Nasal Cannula 3 PG Care Time/CCT Total # of Minutes Spent Total Time Spent with Patient: Total time spent is greater than 50% in coordination of care (as documented) at patient's floor/unit and/or counseling patient: Coding Level of Care Code 49792 SUB INP/OBS CARE 2/35MIN Diagnoses UTI (urinary tract infection) T83.512A; N39.0 Encounter type: initial encounter Indwelling urinary catheter type: nephrostomy catheter Urinary tract infection type: catheter-associated UTI VRE (vancomycin resistant enterococcus) culture positive Z22.39 (1) UTI (urinary tract infection) Encounter type: initial encounter Indwelling urinary catheter type: nephrostomy catheter Urinary tract infection type: catheter-associated UTI Qualified Code(s): T83.512A - Infection and inflammatory reaction due to nephrostomy catheter, initial encounter; N39.0 - Urinary tract infection, site not specified
--- NOTE | 2025-04-16 11:47 | Discharge Summary ---
Discharge Summary Date of Service April 16, 2025 Principal Dx & Hospital Course #1 = Principal Diagnosis Admission HPI Per Admitting Provider 70-year-old female with past medical history significant for type 2 diabetes, chronic hypoxemic respiratory failure, diabetic peripheral angiopathy, dyslipidemia, postsurgical hypothyroidism, secondary hyperparathyroidism, CKD stage III, interstitial lung disease, obstructive sleep apnea, morbid obesity, chronic heart failure with preserved ejection fraction, recurrent DVT, history of pulm embolism, status post IVC filter, paroxysmal atrial fibrillation, venous insufficiency, hypertension, right carotid artery stenosis asymptomatic, history of CAD, GERD, drug-induced constipation, B12 deficiency, nephrostomy status, retained ureteral stent, fibromyalgia, restless leg syndrome, osteoarthritis, lumbar radiculopathy, heparin-induced thrombocytopenia, macrocytic anemia, iron deficiency anemia, depression, anxiety comes because of UTI with VRE. Patient has history of possible UPJ obstruction managed with chronic ureteral stents. However she was having more rapid encrustation of her stents with frequent episodes of sepsis. She was thought to be poor surgical candidate for repair. In February 2025 again she presented with hydronephrosis and concern for UTI. At that time due to more frequent encrustation and sepsis episodes she was sent for conversion to nephrostomy tube which was done at outside facility. She is status post right nephrostomy. She followed up with urology. There is a plan to take out the stent and continue with nephrostomy tubes in anticipation of lowering the risk of sepsis . And today outpatient urine cultures grew VRE and was sent to hospital for IV antibiotics. Patient complains of some right flank pain. She says the nephrostomy tube is not working properly. Denies any fevers. Denies chest pain or shortness of breath. No cough. No headache. No runny nose or sore throat. She states she was recently treated for cellulitis of the right lower extremity. Hemodynamics are okay. Past medical history. As mentioned above Past surgical history. Right nephrostomy tubes. Right total knee arthroplasty. Colonoscopy. Injection of lumbosacral spine. Left knee arthroscopy. Thyroidectomy. Cholecystectomy. Repair of recurrent incisional hernia. Injection of sacroiliac joint. Suture large intestine with colostomy. Right carotid artery Transcath stent, vena cava filter. Ureteral stent placements Social history. Quit smoking 1996. Smoked 1 pack a day for 15 years. Alcohol rarely. No drug use. Family history. Brother has COPD. Father had lung cancer. Mother had liver cancer. Updated Medication List Medication Instructions Recorded Confirmed Type clonazepam 0.5 mg tablet 0.5 mg PO TID 09/20/23 04/12/25 History furosemide 40 mg tablet 20 mg PO QAM 09/20/23 04/12/25 History magnesium oxide 400 mg (241.3 mg 400 mg PO BID 09/20/23 04/12/25 History magnesium) tablet ropinirole 2 mg tablet 2 mg PO HS 09/20/23 04/12/25 History sennosides 8.6 mg-docusate sodium 1 tab PO BID 09/20/23 04/12/25 History 50 mg tablet (Senna-Time S) tramadol 50 mg tablet 50 mg PO Q8 PRN Pain 09/20/23 04/12/25 History levothyroxine 200 mcg tablet 200 mcg PO DAILYBB #30 tabs 12/07/23 04/12/25 Rx cholecalciferol (vitamin D3) 25 25 mcg PO QAM 01/16/24 04/12/25 History mcg (1,000 unit) tablet clopidogrel 75 mg tablet 75 mg PO QAM 01/16/24 04/12/25 History duloxetine 60 mg capsule,delayed 60 mg PO QAM 12/09/24 04/12/25 History release fluticasone propionate 50 2 spray intranasal AMHS 12/09/24 04/12/25 History mcg/actuation nasal spray,suspension gabapentin 300 mg capsule 300 mg PO AMHS 12/09/24 04/12/25 History insulin aspart U-100 100 unit/mL See Rx Instructions .Route .COMPLEX 12/09/24 04/12/25 History (3 mL) subcutaneous pen (Novolog FlexPen U-100 Insulin aspart) insulin degludec 100 unit/mL (3 15 unit subcut QPM 12/09/24 04/12/25 History mL) subcutaneous pen (Tresiba FlexTouch U-100 insulin) rosuvastatin 5 mg tablet 5 mg PO QAM 12/09/24 04/12/25 History trazodone 50 mg tablet 50 mg PO HS 12/09/24 04/12/25 History apixaban 5 mg tablet (Eliquis) 5 mg PO BID #60 tabs 01/31/25 04/12/25 Rx metoprolol succinate 25 mg 37.5 mg (1.5 x 25 mg) PO QAM #30 01/31/25 04/12/25 Rx tablet,extended release 24 hr tabs tirzepatide 7.5 mg/0.5 mL 7.5 mg subcut WK 02/25/25 04/12/25 History subcutaneous pen injector (Kevan) Lactobacillus acidophilus 10 10,000 mmu cells PO DAILY 04/07/25 04/12/25 History billion cell capsule acetaminophen 500 mg tablet 500 - 1,000 mg PO Q8H PRN Pain 04/07/25 04/12/25 History (Tylenol Extra Strength) albuterol sulfate 2.5 mg/3 mL 2.5 mg inhalation DIRECTED PRN 04/07/25 04/12/25 History (0.083 %) solution for nebulization Shortness Of Breath Or Wheezing albuterol sulfate 5 mg/mL(0.5 %) 2.5 mg inhalation DIRECTED PRN 04/07/25 04/12/25 History solution for nebulization Shortness Of Breath Or Wheezing cyanocobalamin (vitamin B-12) 500 500 mcg PO DAILY 04/07/25 04/12/25 History mcg tablet (Vitamin B-12) duloxetine 30 mg capsule,delayed 30 mg PO QAM 04/07/25 04/12/25 History release pantoprazole 20 mg tablet,delayed 20 mg PO QAM 04/07/25 04/12/25 History release potassium chloride 10 mEq 10 meq PO BID 04/07/25 04/12/25 History capsule,extended release tamsulosin 0.4 mg capsule 0.4 mg PO QAM 04/07/25 04/12/25 History linezolid 600 mg tablet 600 mg PO BID 10 days #20 tabs 04/16/25 Rx torsemide 40 mg tablet 40 mg PO DAILY #30 tabs 04/16/25 Rx Hospital Stay Data Consultations 04/12/25 19:23 ED Decision to Admit Stat 04/13/25 08:00 Consult Urology Routine 04/13/25 09:51 Consult Infectious Diseases Routine Diagnostic Imagining Performed 04/15/25 08:00 CT abd pelvis wo con Routine Pending Results Patient Have Any Pending Studies at Discharge: No Discharge Instructions Given to Patient (Per Discharging Provider) MEDICATION CHANGES: NEW: Linezolid 600 mg by mouth twice daily x 10 days forcomplicated UTI. Torsemide 40mg by mouth once daily HOLD: Tramadol until antibiotic above is complete due to drug interaction risk STOP: Lasix 20mg daily RECOMMENDATIONS FOR FOLLOW-UP: Follow up with PCP as scheduled. Urology to arrange follow up for stent removal while on antibiotics. Nephrology office will call with follow up appointment in 1-2 weeks. Please get repeat labwork (BMP) by the end of the week. OTHER INSTRUCTIONS: Seek medical attention if you have: * temperature above 101 * chest pain or trouble breathing * abdominal pain, nausea, vomiting * diarrhea, dark stools or bloody stools * any unanswered questions or concerns Call 911 if symptoms are severe. Please take good care of yourself. Call if you have any questions or problems. You can reach a [facility] hospitalist on duty at [facility] 24 hours a day by calling [phone].
--- NOTE | 2025-04-16 11:47 | Infectious Disease Consult ---
Date of Service April 16, 2025 Telehealth Information I performed this visit using a real-time telehealth connection between my location and the patients location ([facility]). After connecting through interactive tele-video, patient was identified by name and date of and/or wristband check.Patient (or authorized healthcare delivery representative) was informed that this was a telemedicine visit and it was being conducted confidentially over secure lines. My office door was closed and no one else was present in the room with me.Patient (or authorized healthcare delivery representative) provided consent to proceed with the visit, expressed an understanding of privacy and security of the telemedicine visit, and gave permission to have a hospital delivery representative in the room in order to assist with the visit and to conduct portions of the visit, as needed. I informed the patient (or authorized healthcare delivery representative) that I reviewed their record and presented the opportunity for them to ask any questions regarding the visit today. The patient agreed to participate. frequent UTI; neph tubes and VRE. On Dapto IV Assessment & Plan (1) UTI (urinary tract infection): Plan: Continue daptomycin (2) VRE (vancomycin resistant enterococcus) culture positive: Plan: If no concern for pyelonephritis would treat for 5-7 days Plan Patient s/p right nephrostomy and ureteral stent placement who presented with VRE UTI currently on daptomycin .If there is concern for pyelonephritis can treat with daptomycin for a total of 14 days and if not for 5-7 days Thank you for allowing us to participate in the care of this patient ID will sign off History of Present Illness History of Present Illness 70 y/o F PMHx type 2 diabetes, chronic hypoxemic respiratory failure, diabetic peripheral angiopathy, dyslipidemia, postsurgical hypothyroidism, secondary hyperparathyroidism, CKD stage III, interstitial lung disease, obstructive sleep apnea, morbid obesity, chronic heart failure with preserved ejection fraction, recurrent DVT, history of pulmonary embolism, status post IVC filter, paroxysmal atrial fibrillation, venous insufficiency, hypertension, right carotid artery stenosis asymptomatic, history of CAD, GERD, drug-induced constipation, B12 deficiency, nephrostomy status, retained ureteral stent, fibromyalgia, restless leg syndrome, osteoarthritis, lumbar radiculopathy, heparin-induced thrombocyto penia, macrocytic anemia, iron deficiency anemia, depression, anxiety presented because of UTI with VRE. Patient has history of possible UPJ obstruction managed with chronic ureteral stents. However she was having more rapid encrustation of her stents with frequent episodes of sepsis. She was thought to be poor surgical candidate for repair. In February 2025 again she presented with hydronephrosis and concern for UTI. At that time due to more frequent encrustation and sepsis episodes she was sent for conversion to nephrostomy tube which was done at outside facility. She is status post right nephrostomy. She followed up with urology. There is a plan to take out the stent and continue with nephrostomy tubes in anticipation of lowering the risk of sepsis .Patient's outpatient urine cultures grew VRE and was sent to hospital for IV antibiotics. Patient is currently on daptomycin Allergies Allergy/AdvReac Type Severity Reaction Status Date / Time morphine Allergy Severe Swelling, Verified 04/12/25 19:30 "Violent reaction- almost " pollen extracts Allergy Intermediate HAYFEVER Verified 04/12/25 19:30 SYMPTOMS heparin AdvReac Severe HEPARIN Verified 04/12/25 19:30 INDUCED THROMBOCYTOPENIA bupropion [From Wellbutrin] AdvReac Intermediate Recurrent Verified 04/12/25 19:30 falls as per patient codeine AdvReac Intermediate Hallucinati Verified 04/12/25 19:30 ons dapagliflozin [From Farxiga] AdvReac Intermediate Yeast Verified 04/12/25 19:30 infections empagliflozin AdvReac Intermediate Yeast Verified 04/12/25 19:30 [From Jardiance] infections hydrocodone [From Vicodin] AdvReac Intermediate Drowsy Verified 04/12/25 19:30 tetanus toxoid, adsorbed AdvReac Intermediate Passed Verified 04/12/25 19:30 out, "got sick" as child Home Medications Medication Instructions Recorded Confirmed Type clonazepam 0.5 mg tablet 0.5 mg PO TID 09/20/23 04/12/25 History magnesium oxide 400 mg (241.3 mg 400 mg PO BID 09/20/23 04/12/25 History magnesium) tablet ropinirole 2 mg tablet 2 mg PO HS 09/20/23 04/12/25 History sennosides 8.6 mg-docusate sodium 1 tab PO BID 09/20/23 04/12/25 History 50 mg tablet (Senna-Time S) tramadol 50 mg tablet 50 mg PO Q8 PRN Pain 09/20/23 04/12/25 History levothyroxine 200 mcg tablet 200 mcg PO DAILYBB #30 tabs 12/07/23 04/12/25 Rx cholecalciferol (vitamin D3) 25 25 mcg PO QAM 01/16/24 04/12/25 History mcg (1,000 unit) tablet clopidogrel 75 mg tablet 75 mg PO QAM 01/16/24 04/12/25 History duloxetine 60 mg capsule,delayed 60 mg PO QAM 12/09/24 04/12/25 History release fluticasone propionate 50 2 spray intranasal AMHS 12/09/24 04/12/25 History mcg/actuation nasal spray,suspension gabapentin 300 mg capsule 300 mg PO AMHS 12/09/24 04/12/25 History insulin aspart U-100 100 unit/mL See Rx Instructions .Route .COMPLEX 12/09/24 04/12/25 History (3 mL) subcutaneous pen (Novolog FlexPen U-100 Insulin aspart) insulin degludec 100 unit/mL (3 15 unit subcut QPM 12/09/24 04/12/25 History mL) subcutaneous pen (Tresiba FlexTouch U-100 insulin) rosuvastatin 5 mg tablet 5 mg PO QAM 12/09/24 04/12/25 History trazodone 50 mg tablet 50 mg PO HS 12/09/24 04/12/25 History apixaban 5 mg tablet (Eliquis) 5 mg PO BID #60 tabs 01/31/25 04/12/25 Rx metoprolol succinate 25 mg 37.5 mg (1.5 x 25 mg) PO QAM #30 01/31/25 04/12/25 Rx tablet,extended release 24 hr tabs tirzepatide 7.5 mg/0.5 mL 7.5 mg subcut WK 02/25/25 04/12/25 History subcutaneous pen injector (Kevan) Lactobacillus acidophilus 10 10,000 mmu cells PO DAILY 04/07/25 04/12/25 History billion cell capsule acetaminophen 500 mg tablet 500 - 1,000 mg PO Q8H PRN Pain 04/07/25 04/12/25 History (Tylenol Extra Strength) albuterol sulfate 2.5 mg/3 mL 2.5 mg inhalation DIRECTED PRN 04/07/25 04/12/25 History (0.083 %) solution for nebulization Shortness Of Breath Or Wheezing albuterol sulfate 5 mg/mL(0.5 %) 2.5 mg inhalation DIRECTED PRN 04/07/25 04/12/25 History solution for nebulization Shortness Of Breath Or Wheezing cyanocobalamin (vitamin B-12) 500 500 mcg PO DAILY 04/07/25 04/12/25 History mcg tablet (Vitamin B-12) duloxetine 30 mg capsule,delayed 30 mg PO QAM 04/07/25 04/12/25 History release pantoprazole 20 mg tablet,delayed 20 mg PO QAM 04/07/25 04/12/25 History release potassium chloride 10 mEq 10 meq PO BID 04/07/25 04/12/25 History capsule,extended release tamsulosin 0.4 mg capsule 0.4 mg PO QAM 04/07/25 04/12/25 History linezolid 600 mg tablet 600 mg PO BID 10 days #20 tabs 04/16/25 Rx torsemide 40 mg tablet 40 mg PO DAILY #30 tabs 04/16/25 Rx Patient History Medical History Bilateral flank pain Acute kidney injury superimposed on chronic kidney disease Leukocytosis Hydronephrosis History of pulmonary embolism 2008 s/p zoraida filter History of DVT (deep vein thrombosis) 2008 (during ICU [place] admission/PNA) Subclavian arterial stenosis (06/2023) Cerebrovascular duplex study 06/2023: Retrograde flow in the right vertebral artery. 50-69% proximal right subclavian artery stenosis. Antegrade flow in the left vertebral artery. Normal flow in the left subclavian artery. Hx of pulmonary edema Pickwickian syndrome Orthostasis Lumbago with sciatica Left knee DJD Hx of hydronephrosis Hyperlipemia Hypertension HIT (heparin-induced thrombocytopenia) (2008) hx - [facility] then life flight to [place] > "resolved" Deep vein thrombosis (DVT) Recurrent per records On Eliquis Initially occurred during ICU [place] admission, s/p zoraida filter [address] Right LE doppler 11/2023 showed no DVT within right LE Hepatosplenomegaly Hx of fracture radius Depression with anxiety Chronic diastolic (congestive) heart failure follos with Dr. 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) VRE UTI during inpatient admit at [facility] Hx of Clostridium difficile infection (12/2023) during inpatient admit to [facility], treated, no current sx Hx of constipation Hx of vertigo occasional Hx: UTI (urinary tract infection) frequent Hx of fall (11/2023) last fall was November 2023 - no injuries Diabetes IDDM ELISSA on CPAP CPAP + 3L O2 (O2 is continuous) Hx of septic shock (12/2023) due to UTI - admit to [facility] Presence of IVC filter (2008) [facility], continues to be in place due to current clots behind right knee Hx pulmonary embolism (2008) s/p zoraida filter GERD (gastroesophageal reflux disease) RLS (restless legs syndrome) History of pneumonia (2008) x 8 weeks, [facility] then tx to [facility], "put [facility] in a coma[facility] then went to [facility] with [facility]ach" Trach removed Sep 2009 Fibromyalgia Hypothyroidism Hx of pyelonephritis (12/2023) CKD (chronic kidney disease), stage III follows [facility] Nephrology Hx of congestive heart failure takes mery puent[facility] Dr. Woodall Cardio Chronic hypoxemic respiratory failure O2 3-4L at all times - sees Pulm @ [facility] - [facility] Figueredo Transient hypotension Mitral valve stenosis Mild per cardio records (due to severe calcification) Echo 06/2023: Borderline mild mitral stenosis secondary to severe mitral annular calcification, follows [facility] cardio Dr. Woodall Cataract, bilateral Neuropathy feet On home oxygen therapy 3-4L continuous Surgical History History of colon resection (2008) secondary to R colon perforation, resected treated with colostomy and eventual reversal in 2008 Hx of tracheostomy (06/2009) (per [facility] records), secondary to acute respiratory failure in setting of PNA, reversed a few months later in 2009 Hx of cystoscopy (11/25/23) with stent placement right side due to infection History of transcarotid artery revascularization (TCAR) (08/2023) right, [facility] History of right knee joint replacement (Unknown) > 10 years Hx laparoscopic cholecystectomy Hx of thyroidectomy (2011) total Family history of reaction to anesthesia Brother/niece- PONV Brother- "wakes up violent" History of colostomy reversal (10/1997) History of tooth extraction History of arthroscopy (Unknown) left ankle , > 10 years History of incisional hernia repair Nausea and vomiting after administration of anesthetic agent History of colonoscopy Family History Father , age 74 Lung cancer Mother , age 45 Cirrhosis Social History Smoking Status: Former smoker Tobacco Type: Cigarettes Cigarettes Per Day: 1996; Second Hand Exposure: Yes; Do You Dip or Chew Tobacco: No; Hx Alcohol Use: No Hx Substance Use: No Preferred Language: Ukrainian Communication Ability: Effective Drugless Doctor Required: No Beliefs That Will Affect Care: None marital status: Single Current Living Situation: Alone Current Living Situation Comment: Lives by self in apartment How many Children do You have: 0 Feels Safe at Home: Yes Assistive Devices: Cane, Oxygen - Continuous, Wheelchair and Other Review of Systems No respiratory distress Physical Exam Awake alert oriented Results & Data Vital Signs (Past 12 Hours) Vital Signs Temp Pulse Resp BP Pulse Ox O2 Del Method O2 Flow Rate 04/16/25 07:09 36.5 C 72 20 111/70 99 Nasal Cannula 3 04/16/25 07:05 Nasal Cannula 3 Laboratory Results VRE E fa RX M.I.C. --- --------- Ampicillin R >8 Ciprofloxacin R >2 Daptomycin S 4 Gent Synergy S <=500 Levofloxacin R >4 Linezolid S <=1 Nitrofurantoin S <=32 Strep Synergy R >1000 Tetracycline R >8 Vancomycin R >16 Enterococcus faecium VRE: Positive ABBEY 38 Streptomycin Synergy Screen R Gentamicin Synergy Screen S S = SENSITIVE I = INTERMEDIATE R = RESISTANT Diagnostic Findings IMPRESSION: 1. Resolution of right hydronephrosis. Right percutaneous nephrostomy catheter and right ureteral stent in place. 2. No bowel obstruction. Several bowel containing ventral hernias. 3. Moderate amount of stool within the colon and rectum. (1) UTI (urinary tract infection) Encounter type: initial encounter Indwelling urinary catheter type: nephrostomy catheter Urinary tract infection type: catheter-associated UTI Qualified Code(s): T83.512A - Infection and inflammatory reaction due to nephrostomy catheter, initial encounter; N39.0 - Urinary tract infection, site not specified
--- NOTE | 2025-04-16 14:47 | Hospitalist Progress Note ---
Date of Service April 16, 2025 Assessment & Plan (1) VRE (vancomycin resistant enterococcus) culture positive: Plan: This is a 70-year-old female with past medical history significant for type 2 diabetes, chronic hypoxemic respiratory failure, diabetic peripheral angiopathy, dyslipidemia, postsurgical hypothyroidism, secondary hyperparathyroidism, CKD stage III, interstitial lung disease, obstructive sleep apnea, morbid obesity, chronic heart failure with preserved ejection fraction, recurrent DVT, history of pulm embolism, status post IVC filter, paroxysmal atrial fibrillation, venous insufficiency, hypertension, right carotid artery stenosis asymptomatic, history of CAD, GERD, drug-induced constipation, B12 deficiency, nephrostomy status, retained ureteral stent, fibromyalgia, restless leg syndrome, osteoarthritis, lumbar radiculopathy, heparin-induced thrombocytopenia, macrocytic anemia, iron deficiency anemia, depression, anxiety comes because of UTI with VRE. Patient history of possible UPJ obstruction managed with chronic ureteral stents . However she was having more rapid encrustation of her stents with frequent episodes sepsis. She was thought to be poor surgical candidate for repair. She followed up with urology. There is a plan to take out the stent and continue with nephrostomy tubes in anticipation of lowering the risk of sepsis . And today outpatient urine cultures showed VRE and was sent to hospital for IV antibiotics. Patient complains of some right flank pain. Numerous hydronephrosis episodes and recurrent UTI. Original UPJ obstruction with stent removal; Original stent placed 11/2023 with four stent exchanges (04/2024, 11/2024 x2 due to encrustation) Patient saw PCP 04/12 for hydronephrosis and recurrent UTI and for evaluation of nephrostomy tube function. Patient reportedly noted decreased drainage in the last 3 days with right flank discomfort at insertion site. Patient had a CTAP at outside facility indicating proper placement on 04/07. Complicated UTI VRE positive urine H/O UPJ obstruction Urine culture positive for VRE Started on daptomycin in the ED ID saw today - recommending continued IV Daptomycin given interactions with psy ch meds and risk of serotonin syndrome with PO Linezolid. Script written, Peripheral IV in place, CM coordinating Karlos CK and CMP while on IV abx Acute right CVA tenderness slightly improved Contact isolation ELSIE H/O chronic obstruction of UPJ s/p neph tube placement 02/2025 @ [facility] Serum creatinine 2.10 today; baseline 1.5-2.2 - previously mid-1s but ~2-2.4 since February Patient admitted for infection with severe history of chronic obstruction with UPJ obstruction and severe infections including infection with VRE Nephrostomy tube volume decreased over past 3 days Discussed with Urology; suspect some of the drainage issues are positional--> switch over to leg bag with stat lock and drain to gravity Limit manipulation as much as possible. Intermittently irrigate the nephrostomy tube with 23 cc sterile water to maintain patency; per urology. Communication order placed Patient actively having infection issues and findings consistent with VRE Overall patient is a poor surgical candidate Repeat CTAP scheduled for 04/15 per Urology - Resolution of right hydronephrosis. Right percutaneous nephrostomy catheter and right ureteral stent in place. No bowel obstruction. 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 Lenz - recommends discontinuing lasix and starting 40mg Torsemide daily with close nephro follow up Constipation Moderate amount of stool within the colon and rectum seen on CT abd/pelvis Augmented bowel regimen Possible RLE cellulitis -> resolving Recently treated for right lower extremity cellulitis as outpatient per patient Right leg still mildly erythematous, no longer warm On IV daptomycin as above Pt on Eliquis; low clot burden risk Chronic hypoxemic respiratory failure ELISSA On 4 L oxygen; wears 24/7 Wears CPAP HS; brought her own from home DM2 Continue home long-acting insulin Hold [facility] SSI A1C 7.0; ranges 6.8-7.5 over past year. Noncompliance; may benefit from CDE Morbid obesity Continue Mounjaro Follow-up with PCP and grease remover May be contributing factor to positioning/draining HFpEF: Discontinuing lasix and trail of torsemide 40mg daily per discussion with Dr. Lenz as above On KcL supplement Monitor for fluid overload Most recent ECHO: 01/2025: ECHO 60-65% LVWMN with MR/TR Paroxysmal atrial fibrillation A flutter On metoprolol succinate and Eliquis; continue History of PE and recurrent DVT Status post IVC filter On Eliquis; continue Carotid artery stenosis status post right TACR in August 2023 On Plavix and statin Hyperlipidemia Takes Rosuvastatin;continue Fibromyalgia: On duloxetine and gabapentin; continue Depression and anxiety On clonazepam and duloxetine Hypothyroidism: On Synthroid; continue GERD On Protonix; continue Restless leg syndrome: On ropinirole; continue Disposition: Code status: Full DVT Prophylaxis: Prince PT/OT recommending home with HH, anticipate dc home tomorrow on IV abx Patient seen in collaboration with Dr. Borden. Please see addendum. I spent a total of 55 minutes coordinating, documenting, and providing care for this patient excluding time spent in the performance of separately billed services or time spent by another provider/QHP. Admission and Anticipated Discharge Date Admission Date: April 12, 2025 Supervising Physician Co-Signing Physician Notes Patient is seen and examined at bedside. States feeling tired. Poor sleep overnight. No other complaints today. Nephrostomy tube draining well. Appreciate ID recommendations. On exam patient is morbidly obese, no apparent distress, normocephalic atraumatic, EOMI, decreased breath sounds, clear to auscultation, S1-S2, no murmur, trace pedal edema, abdomen soft, nontender, normal bowel sounds,back+ nephrostomy tube, alert, awake, oriented, grossly no focal deficits. Patient is currently being managed for complicated UTI, urine culture grew VRE. Appreciate ID input. Plantar continue IV daptomycin to complete the course as recommended. Also being managed for ELSIE, chronic obstruction of UPJ s/p nephrostomy tube. Appreciate nephrology, urology input. Plan to discharge on torsemide as recommended by nephrology. Right lower extremity cellulitis much improved. I personally interviewed and examined the patient at bedside. I have reviewed the advanced practitioner's documentation on the date of service referred in note and agree with plan. Patient's care is coordinated with Varsha Duncan PA-C. Please refer to the documentation above for details of patient's presentation and for discussion of other issues. I spent a total of 28minutes coordinating, documenting, and providing care for this patient excluding time spent in the performance of separately billed services or time spent by another provider/QHP. Subjective Pt seen at bedside today. Sitting comfortably, NAEO. Nephrostomy tube draining clear yellow urine. Reports one occurrence of mild hematuria last night. No fevers. Denies significant pain. Hoping for discharge home. Review of Systems Review of Systems: At least ten systems reviewed and negative except as noted in the HPI. Physical Exam Physical Exam: Gen: WD/WN, NAD, sitting in bedside chair, A&Ox3, morbidly obese HEENT: Normocephalic, atraumatic, mucous membranes moist Lung: Diminished breath sounds bilaterally Heart: Regular rate, regular rhythm Abdomen: Soft, NT, ND +BS x 4 : R nephrostomy tube, R CVA TTP Extremities: 1+ BLE edema with faint resolving erythema Skin: Warm, no rash Results & Data Results & Data Vital Signs (Past 12 Hours) Vital Signs Temp Pulse Resp BP Pulse Ox O2 Del Method O2 Flow Rate 04/16/25 07:09 36.5 C 72 20 111/70 99 Nasal Cannula 3 04/16/25 07:05 Nasal Cannula 3 Laboratory Results Short CBC 04/16/25 Range/Units 06:36 WBC 8.50 (4.8-10.8) K/ul Hgb 10.0 L (12.0-16.0) g/dl Hct 31.7 L (37.0-47.0) % Plt Count 295 (130-400) K/uL BMP 04/16/25 06:36 Sodium 139 Potassium 3.9 Chloride 102 Carbon Dioxide 32 BUN 36 H Creatinine 1.93 H Glucose 89 Calcium 8.9 Diagnostic Findings Abdomen/Pelvis CT 04/15/25 08:00 CT OF THE ABDOMEN AND PELVIS WITHOUT CONTRAST CLINICAL HISTORY: Stent placement. COMPARISON STUDY: CT of the abdomen and pelvis April 07, 2025. TECHNIQUE: Axial images of the abdomen and pelvis were obtained without IV contrast. Images were reviewed in the axial, sagittal, and coronal planes. Automated exposure control was utilized for the study. A dose lowering technique was utilized adhering to the principles of ALARA. FINDINGS: Subpleural reticulation with groundglass opacities and mosaic attenuation within the lower lungs remains unchanged. No pneumatosis, free air or portal venous gas is present. A right percutaneous nephrostomy catheter and right ureteral stent remains in place. Right hydronephrosis on CT of April 07, 2025 has resolved. There is no left hydronephrosis. There is minimal stranding within the right renal sinus. This is unchanged. No ureteral calculi are identified. Evaluation of the remainder of the abdomen and pelvis is suboptimal on this unenhanced exam. Liver, spleen, adrenal glands and pancreas are unremarkable. Several bowel containing ventral hernias are present. There is no resultant bowel obstruction. There is a moderate amount stool within the colon and rectum. There are no fluid collections. There is no free fluid. IVC filters in place. A 1.3 cm presacral nodule remains unchanged from earlier exams. This is benign given stability. IMPRESSION: 1. Resolution of right hydronephrosis. Right percutaneous nephrostomy catheter and right ureteral stent in place. 2. No bowel obstruction. Several bowel containing ventral hernias. 3. Moderate amount of stool within the colon and rectum. ACT 112: Negative or not required by law. Electronically signed by: David Lugo M.D. 04/15/2025 9:01 AM
[2025-04-16 19:50] VITALS: O2SAT 98
[2025-04-17] MEDS: MELATONIN 3 MG TAB PO PRN (00:24)
[2025-04-17 07:35] LABS: Hematocrit (blood only) 32.8 % (37.0-47.0); Hemoglobin 10.3 g/dl (12.0-16.0); Mean Corpuscular Hemoglobin 29.7 pg (25.0-34.0); Mean Corpuscular Volume 94.5 fL (80.0-100.0); Platelet Count 306 K/uL (130-400); RDW Standard Deviation 47.7 fL (36.4-46.3); Red Blood Count 3.47 M/uL (4.20-5.40); White Blood Count 9.10 K/ul (4.8-10.8)
[2025-04-17 07:39] VITALS: BP 116/72; PULSE 75; RESP 16; TEMP 97.9
[2025-04-17 07:57] LABS: Anion Gap 7.0 (3-11); Blood Urea Nitrogen 35.0 mg/dl (6-23); Calcium 9.0 mg/dl (8.6-10.3); Carbon Dioxide 31.0 mmol/L (21-32); Chloride 102.0 mmol/L (98-107); Creatine Kinase 37.0 U/L (26-192); Creatinine Clr Calc Pharmacy 34.4 ml/min; Glucose 107.0 mg/dl (70-99(Fasting)); Potassium 4.0 mmol/L (3.5-5.1); Sodium 140.0 mmol/L (136-145)
[2025-04-17] MEDS: TORSEMIDE 20 MG TAB PO SCH (08:48)
--- NOTE | 2025-04-17 11:12 | Urology Progress Note ---
Date of Service April 17, 2025 Assessment & Plan (1) UTI (urinary tract infection): (2) VRE (vancomycin resistant enterococcus) culture positive: Plan 70yo female with a right nephrostomy tube and right ureteral stent admitted with complicated UTI/VRE positive culture. - CT 04/15/25 showed resolution of right hydronephrosis. Right percutaneous nephrostomy catheter and right ureteral stent in place. - She is afebrile with stable vitals at present. - Labs today show no leukocytosis and creatinine 2.01. - Urine culture 04/05 and 04/07 grew Enterococcus VRE. - Continues on Daptomycin. - Nephrostomy tube intact and draining clear yellow urine. Output appears adequate. - Continue supportive care and antibiotic therapy per ID recommendations. - Maintain neph tube and monitor output. Has f/u with IR in [place] in May per her report. - Will arrange follow-up with our service. - If patient develops any acute changes or issues with the nephrostomy tube, will need to consider transfer for possible exchange of the nephrostomy tube. - Urology will follow along, please contact us with any questions/concerns. Admission and Anticipated Discharge Date Admission Date: April 12, 2025 Subjective Pt seen at bedside today. NAD. Nephrostomy tube draining clear yellow urine. No fevers. Denies significant pain. Reports some discomfort around neph tube site. Hopeful for discharge home today. Review of Systems Constitutional: as per Subjective / HPI Genitourinary: as per Subjective / HPI Physical Exam Constitutional: no acute distress Respiratory: no respiratory distress and no labored breathing Neurologic: awake Psychiatric: A+Ox3, euthymic affect Genitourinary: Right Nephrostomy tube draining clear yellow urine Results & Data Vital Signs (Past 12 Hours) Vital Signs Temp Pulse Resp BP Pulse Ox O2 Del Method O2 Flow Rate 04/17/25 07:20 Nasal Cannula 3 04/17/25 07:19 36.6 C 75 16 116/72 98 Nasal Cannula 2.0 PG Care Time/CCT Total # of Minutes Spent Total Time Spent with Patient: Total time spent is greater than 50% in coordination of care (as documented) at patient's floor/unit and/or counseling patient: Coding Level of Care Code 30768 SUB INP/OBS CARE 10/20MIN Diagnoses UTI (urinary tract infection) T83.512A; N39.0 Encounter type: initial encounter Indwelling urinary catheter type: nephrostomy catheter Urinary tract infection type: catheter-associated UTI VRE (vancomycin resistant enterococcus) culture positive Z22.39 (1) UTI (urinary tract infection) Encounter type: initial encounter Indwelling urinary catheter type: nephrostomy catheter Urinary tract infection type: catheter-associated UTI Qualified Code(s): T83.512A - Infection and inflammatory reaction due to nephrostomy catheter, initial encounter; N39.0 - Urinary tract infection, site not specified
--- NOTE | 2025-04-17 13:11 | Hospitalist Progress Note ---
Date of Service April 17, 2025 Assessment & Plan (1) VRE (vancomycin resistant enterococcus) culture positive: Plan: This is a 70-year-old female with past medical history significant for type 2 diabetes, chronic hypoxemic respiratory failure, diabetic peripheral angiopathy, dyslipidemia, postsurgical hypothyroidism, secondary hyperparathyroidism, CKD stage III, interstitial lung disease, obstructive sleep apnea, morbid obesity, chronic heart failure with preserved ejection fraction, recurrent DVT, history of pulm embolism, status post IVC filter, paroxysmal atrial fibrillation, venous insufficiency, hypertension, right carotid artery stenosis asymptomatic, history of CAD, GERD, drug-induced constipation, B12 deficiency, nephrostomy status, retained ureteral stent, fibromyalgia, restless leg syndrome, osteoarthritis, lumbar radiculopathy, heparin-induced thrombocytopenia, macrocytic anemia, iron deficiency anemia, depression, anxiety comes because of UTI with VRE. Patient history of possible UPJ obstruction managed with chronic ureteral stents . However she was having more rapid encrustation of her stents with frequent episodes sepsis. She was thought to be poor surgical candidate for repair. She followed up with urology. There is a plan to take out the stent and continue with nephrostomy tubes in anticipation of lowering the risk of sepsis . And today outpatient urine cultures showed VRE and was sent to hospital for IV antibiotics. Patient complains of some right flank pain. Numerous hydronephrosis episodes and recurrent UTI. Original UPJ obstruction with stent removal; Original stent placed 11/2023 with four stent exchanges (04/2024, 11/2024 x2 due to encrustation) Patient saw PCP 04/12 for hydronephrosis and recurrent UTI and for evaluation of nephrostomy tube function. Patient reportedly noted decreased drainage in the last 3 days with right flank discomfort at insertion site. Patient had a CTAP at outside facility indicating proper placement on 04/07. Complicated UTI VRE positive urine H/O UPJ obstruction Urine culture positive for VRE Started on daptomycin in the ED Evaluated by infectious disease on 04/16/2025. - recommending continued IV Daptomycin given interactions with psych meds and risk of serotonin syndrome with PO Linezolid. Script written, Peripheral IV in place, NORMA [place] CK and CMP while on IV abx Acute right CVA tenderness improved Contact isolation Plan to discharge home today ELSIE H/O chronic obstruction of UPJ s/p neph tube placement 02/2025 @ [facility] Serum creatinine 2.10 today; baseline 1.5-2.2 - previously mid-1s but ~2-2.4 si nce February Patient admitted for infection with severe history of chronic obstruction with UPJ obstruction and severe infections including infection with VRE Nephrostomy tube volume decreased over past 3 days Discussed with Urology; suspect some of the drainage issues are positional--> switch over to leg bag with stat lock and drain to gravity Limit manipulation as much as possible. Intermittently irrigate the nephrostomy tube with 23 cc sterile water to maintain patency; per urology. Communication order placed Patient actively having infection issues and findings consistent with VRE Overall patient is a poor surgical candidate Repeat CTAP scheduled for 04/15 per Urology - Resolution of right hydronephrosis. Right percutaneous nephrostomy catheter and right ureteral stent in place. No bowel obstruction. Several bowel containing ventral hernias Recent lasix dose decreasing from 60mg BID to 60 daily -> 40 -> 20mg given increased Cr Cr improved and now 1.[address] with lead recoverer Dr. Lenz - recommends discontinuing lasix and starting 40mg Torsemide daily with close nephro follow up Constipation Moderate amount of stool within the colon and rectum seen on CT abd/pelvis Augmented bowel regimen Encouraged to ambulate Possible RLE cellulitis -> resolving Recently treated for right lower extremity cellulitis as outpatient per patient Right leg still mildly erythematous, no longer warm On IV daptomycin as above Pt on Eliquis; low clot burden risk Chronic hypoxemic respiratory failure ELISSA On 4 L oxygen; wears 24/7 Wears CPAP HS; brought her own from home DM2 Continue home long-acting insulin [facility] S[facility] A1C 7.0; ranges 6.8-7.5 over past year. Noncompliance; may benefit from CDE Advised to follow-up with PCP as outpatient Morbid obesity Continue Mounjaro Follow-up with PCP and director of donor relations May be contributing factor to positioning/draining HFpEF: Discontinuing lasix and trail of torsemide 40mg daily per discussion with Dr. Lenz as above On KcL supplement Monitor for fluid overload Most recent ECHO: 01/2025: ECHO 60-65% LVWMN with MR/TR Paroxysmal atrial fibrillation A flutter On metoprolol succinate and Eliquis; continue History of PE and recurrent DVT Status post IVC filter On Eliquis; continue Carotid artery stenosis status post right TACR in August 2023 On Plavix and statin Hyperlipidemia Takes Rosuvastatin;continue Fibromyalgia: On duloxetine and gabapentin; continue Depression and anxiety On clonazepam and duloxetine Hypothyroidism: Continue levothyroxine GERD On Protonix; continue Restless leg syndrome: On ropinirole; continue DVT Px: Eliquis Code status: Full Code Disposition Home with home health Admission and Anticipated Discharge Date Admission Date: April 12, 2025 Subjective Patient is seen and examined at bedside Offers no complaints today States feeling well Eager to get discharged Denies any chest pain, dyspnea, nausea, vomiting, abdominal pain, dysuria, hematuria Review of Systems Review of Systems: All systems reviewed & are unremarkable except as noted in Subjective Physical Exam Physical Exam: Physical Exam: Vitals signs as noted above General Appearance:Morbidly Obese, no apparent distress Head: normocephalic, Atraumatic Eyes: normal inspection, EOMI Neck: supple, Trachea midline Respiratory/Chest: Decreased breath sounds, CTA, No accessory muscle use Cardiovascular: S1, S2, No murmur Abdomen/GI:Soft, Non tender, Bowel sounds present,+R Nephrostomy tube Extremities/Musculoskeletal:normal inspection, Trace edema Neurologic/Psych:AAOX3, grossly no focal neurological deficits Skin: normal color, warm Results & Data Results & Data Vital Signs (Past 12 Hours) Vital Signs Temp Pulse Resp BP Pulse Ox O2 Del Method O2 Flow Rate 04/17/25 07:20 Nasal Cannula 3 04/17/25 07:19 36.6 C 75 16 116/72 98 Nasal Cannula 2.0 Laboratory Results Short CBC 04/17/25 Range/Units 06:48 WBC 9.10 (4.8-10.8) K/ul Hgb 10.3 L (12.0-16.0) g/dl Hct 32.8 L (37.0-47.0) % Plt Count 306 (130-400) K/uL BMP 04/17/25 06:48 Sodium 140 Potassium 4.0 Chloride 102 Carbon Dioxide 31 BUN 35 H Creatinine 2.01 H Glucose 107 H Calcium 9.0 Cardiac Enzymes 04/17/25 Range/Units 06:48 Total Creatine Kinase 37 (26-192) U/L
--- NOTE | 2025-04-17 13:26 | Discharge Summary ---
Date of Service April 17, 2025 Admission HPI Per Admitting Provider 70-year-old female with past medical history significant for type 2 diabetes, chronic hypoxemic respiratory failure, diabetic peripheral angiopathy, dyslipidemia, postsurgical hypothyroidism, secondary hyperparathyroidism, CKD stage III, interstitial lung disease, obstructive sleep apnea, morbid obesity, chronic heart failure with preserved ejection fraction, recurrent DVT, history of pulm embolism, status post IVC filter, paroxysmal atrial fibrillation, venous insufficiency, hypertension, right carotid artery stenosis asymptomatic, history of CAD, GERD, drug-induced constipation, B12 deficiency, nephrostomy status, retained ureteral stent, fibromyalgia, restless leg syndrome, osteoarthritis, lumbar radiculopathy, heparin-induced thrombocytopenia, macrocytic anemia, iron deficiency anemia, depression, anxiety comes because of UTI with VRE. Patient has history of possible UPJ obstruction managed with chronic ureteral stents. However she was having more rapid encrustation of her stents with frequent epi sodes of sepsis. She was thought to be poor surgical candidate for repair. In February 2025 again she presented with hydronephrosis and concern for UTI. At that time due to more frequent encrustation and sepsis episodes she was sent for conversion to nephrostomy tube which was done at outside facility. She is status post right nephrostomy. She followed up with urology. There is a plan to take out the stent and continue with nephrostomy tubes in anticipation of lowering the risk of sepsis . And today outpatient urine cultures grew VRE and was sent to hospital for IV antibiotics. Patient complains of some right flank pain. She says the nephrostomy tube is not working properly. Denies any fevers. Denies chest pain or shortness of breath. No cough. No headache. No runny nose or sore throat. She states she was recently treated for cellulitis of the right lower extremity. Hemodynamics are okay. Admission Exam Per Admitting Provider General- Not in acute distress Head- atraumatic Eyes- PERRL. ENT- oropharynx clear Neck- supple, no JVD. Lungs- clear to auscultation no wheezing or crackles Heart- regular rhythm; no murmur, no gallop. Abdomen- normal bowel sounds, soft, mild diffuse discomfort, no distension Extremities- b/l lower extremity edema present. right lower extremity mildly erythematous and warm to palpation Neuro- alert, oriented PERRL, no facial palsy; no dysarthria; moves extremities Principal Diagnosis Complicated urinary tract infection Acute kidney injury Discharge Data Allergies Allergy/AdvReac Type Severity Reaction Status Date / Time morphine Allergy Severe Swelling, Verified 04/12/25 19:30 "Violent reaction- almost " pollen extracts Allergy Intermediate HAYFEVER Verified 04/12/25 19:30 SYMPTOMS heparin AdvReac Severe HEPARIN Verified 04/12/25 19:30 INDUCED THROMBOCYTOPENIA bupropion [From Wellbutrin] AdvReac Intermediate Recurrent Verified 04/12/25 19:30 falls as per patient codeine AdvReac Intermediate Hallucinati Verified 04/12/25 19:30 ons dapagliflozin [From Farxiga] AdvReac Intermediate Yeast Verified 04/12/25 19:30 infections empagliflozin AdvReac Intermediate Yeast Verified 04/12/25 19:30 [From Jardiance] infections hydrocodone [From Vicodin] AdvReac Intermediate Drowsy Verified 04/12/25 19:30 tetanus toxoid, adsorbed AdvReac Intermediate Passed Verified 04/12/25 19:30 out, "got sick" as child Consultations 04/12/25 19:23 ED Decision to Admit Stat 04/13/25 08:00 Consult Urology Routine 04/13/25 09:51 Consult Infectious Diseases Routine Procedures Performed Laboratory Results WBC 9.10 K/ul (4.8-10.8) 04/17/25 06:48 RBC 3.47 M/uL (4.20-5.40) L 04/17/25 06:48 Hgb 10.3 g/dl (12.0-16.0) L 04/17/25 06:48 Hct 32.8 % (37.0-47.0) L 04/17/25 06:48 MCV 94.5 fL (80.0-100.0) 04/17/25 06:48 MCH 29.7 pg (25.0-34.0) 04/17/25 06:48 MCHC 31.4 g/dL (32.0-36.0) L 04/17/25 06:48 RDW Std Deviation 47.7 fL (36.4-46.3) H 04/17/25 06:48 RDW Coeff of Adolfo 14.0 % (11.5-14.5) 04/17/25 06:48 Plt Count 306 K/uL (130-400) 04/17/25 06:48 MPV 9.1 fL (9.4-12.4) L 04/17/25 06:48 Immature Gran % (Auto) 0.4 % 04/13/25 05:43 Neut % (Auto) 62.4 % 04/13/25 05:43 Lymph % (Auto) 22.8 % 04/13/25 05:43 [place] % (Auto) 7.6 % 04/13/25 05:43 Eos % (Auto) 6.1 % 04/13/25 05:43 Baso % (Auto) 0.7 % 04/13/25 05:43 Neut # (Auto) 4.58 K/uL (1.40-6.50) 04/13/25 05:43 Lymph # (Auto) 1.67 K/uL (1.20-3.40) 04/13/25 05:43 [place] # (Auto) 0.56 K/uL (0.11-0.59) 04/13/25 05:43 Eos # (Auto) 0.45 K/uL (0.00-0.50) 04/13/25 05:43 Baso # (Auto) 0.05 K/uL (0.00-0.20) 04/13/25 05:43 Immature Gran # (Auto) 0.03 K/uL (0.01-0.20) 04/13/25 05:43 Sodium 140 mmol/L (136-145) 04/17/25 06:48 Potassium 4.0 mmol/L (3.5-5.1) 04/17/25 06:48 Chloride 102 mmol/L (98-107) 04/17/25 06:48 Carbon Dioxide 31 mmol/L (21-32) 04/17/25 06:48 Anion Gap 7 (3-11) 04/17/25 06:48 BUN 35 mg/dl (6-23) H 04/17/25 06:48 Creatinine 2.01 mg/dl (0.6-1.2) H 04/17/25 06:48 Est Cr Clr Drug Dosing 34.4 ml/min 04/17/25 06:48 eGFR 26.22 04/17/25 06:48 BUN/Creatinine Ratio 17.4 (10-20) 04/17/25 06:48 Glucose 107 mg/dl (70-99(Fasting)) H 04/17/25 06:48 POC Glucose 142 mg/dl (70-99) H 04/17/25 11:22 Estimat Average Glucose 154 mg/dl 04/13/25 05:43 Hemoglobin A1c 7.0 % (4.5-5.6) H 04/13/25 05:43 Calcium 9.0 mg/dl (8.6-10.3) 04/17/25 06:48 Magnesium 1.9 mg/dl (1.7-2.4) 04/13/25 05:43 Total Bilirubin 0.3 mg/dl (0.2-1.0) 04/14/25 06:20 AST 10 U/L (13-39) L 04/14/25 06:20 ALT 6 U/L (7-52) L 04/14/25 06:20 Alkaline Phosphatase 74 U/L (34-104) 04/14/25 06:20 Total Creatine Kinase 37 U/L (26-192) 04/17/25 06:48 Total Protein 6.9 gm/dl (6.0-8.3) 04/14/25 06:20 Albumin 3.4 gm/dl (3.4-5.0) 04/14/25 06:20 Globulin 3.5 gm/dl (2.5-4.0) 04/14/25 06:20 Albumin/Globulin Ratio 1.0 (0.9-2) 04/14/25 06:20 Impressions Abdomen/Pelvis CT 04/15/25 08:00 CT OF THE ABDOMEN AND PELVIS WITHOUT CONTRAST CLINICAL HISTORY: Stent placement. COMPARISON STUDY: CT of the abdomen and pelvis April 07, 2025. TECHNIQUE: Axial images of the abdomen and pelvis were obtained without IV contrast. Images were reviewed in the axial, sagittal, and coronal planes. Au tomated exposure control was utilized for the study. A dose lowering technique was utilized adhering to the principles of ALARA. FINDINGS: Subpleural reticulation with groundglass opacities and mosaic attenuation within the lower lungs remains unchanged. No pneumatosis, free air or portal venous gas is present. A right percutaneous nephrostomy catheter and right ureteral stent remains in place. Right hydronephrosis on CT of April 07, 2025 has resolved. There is no left hydronephrosis. There is minimal stranding within the right renal sinus. This is unchanged. No ureteral calculi are iden tified. Evaluation of the remainder of the abdomen and pelvis is suboptimal on this unenhanced exam. Liver, spleen, adrenal glands and pancreas are unremarkable. Several bowel containing ventral hernias are present. There is no resultant bowel obstruction. There is a moderate amount stool within the colon and rectum. There are no fluid collections. There is no free fluid. IVC filters in place. A 1.3 cm presacral nodule remains unchanged from earlier exams. This is benign given stability. IMPRESSION: 1. Resolution of right hydronephrosis. Right percutaneous nephrostomy catheter and right ureteral stent in place. 2. No bowel obstruction. Several bowel containing ventral hernias. 3. Moderate amount of stool within the colon and rectum. ACT 112: Negative or not required by law. Electronically signed by: David Lugo M.D. 04/15/2025 9:01 AM Ordered Studies 04/15/25 08:00 CT abd pelvis wo con Routine Hospital Course (1) VRE (vancomycin resistant enterococcus) culture positive: This is a 70-year-old female with past medical history significant for type 2 diabetes, chronic hypoxemic respiratory failure, diabetic peripheral angiopathy, dyslipidemia, postsurgical hypothyroidism, secondary hyperparathyroidism, CKD stage III, interstitial lung disease, obstructive sleep apnea, morbid obesity, chronic heart failure with preserved ejection fraction, recurrent DVT, history of pulm embolism, status post IVC filter, paroxysmal atrial fibrillation, venous insufficiency, hypertension, right carotid artery stenosis asymptomatic, history of CAD, GERD, drug-induced constipation, B12 deficiency, nephrostomy status, retained ureteral stent, fibromyalgia, restless leg syndrome, osteoarthritis, lumbar radiculopathy, heparin-induced thrombocytopenia, macrocytic anemia, iron deficiency anemia, depression, anxiety comes because of UTI with VRE. Patient history of possible UPJ obstruction managed with chronic ureteral stents. However she was having more rapid encrustation of her stents with frequent episodes sepsis. She was thought to be poor surgical candidate for repair. She followed up with urology. There is a plan to take out the stent and continue with nephrostomy tubes in anticipation of lowering the risk of sepsis . And today outpatient urine cultures showed VRE and was sent to hospital for IV antibiotics. Patient complains of some right flank pain. Numerous hydronephrosis episodes and recurrent UTI. Original UPJ obstruction with stent removal; Original stent placed 11/2023 with four stent exchanges (04/2024, 11/2024 x2 due to encrustation) Patient saw PCP 04/12 for hydronephrosis and recurrent UTI and for evaluation of nephrostomy tube function. Patient reportedly noted decreased drainage in the last 3 days with right flank discomfort at insertion site. Patient had a CTAP at outside facility indicating proper placement on 04/07. Complicated UTI VRE positive urine H/O UPJ obstruction Urine culture positive for VRE Started on daptomycin in the ED Evaluated by infectious disease on 04/16/2025. - recommending continued IV Daptomycin given interactions with psych meds and risk of serotonin syndrome with PO Linezolid. Script written, Peripheral IV in place, CM Karlos CK and CMP while on IV abx Acute right CVA tenderness improved Contact isolation Plan to discharge home today ELSIE H/O chronic obstruction of UPJ s/p neph tube placement 02/2025 @ [facility] Serum creatinine 2.10 today; baseline 1.5-2.2 - previously mid-1s but ~2-2.4 since February Patient admitted for infection with severe history of chronic obstruction with UPJ obstruction and severe infections including infection with VRE Nephrostomy tube volume decreased over past 3 days Discussed with Urology; suspect some of the drainage issues are positional--> switch over to leg bag with stat lock and drain to gravity Limit manipulation as much as possible. Intermittently irrigate the nephrostomy tube with 23 cc sterile water to maintain patency; per urology. Communication order placed Patient actively having infection issues and findings consistent with VRE Overall patient is a poor surgical candidate Repeat CTAP scheduled for Mon 04/15 per Urology - Resolution of right hydronephrosis. Right percutaneous nephrostomy catheter and right ureteral stent in place. No bowel obstruction. 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 Lenz - recommends discontinuing lasix and starting 40mg Torsemide daily with close nephro follow up Constipation Moderate amount of stool within the colon and rectum seen on CT abd/pelvis Augmented bowel regimen Encouraged to ambulate Possible RLE cellulitis -> resolving Recently treated for right lower extremity cellulitis as outpatient per patient Right leg still mildly erythematous, no longer warm On IV daptomycin as above Pt on Eliquis; low clot burden risk Chronic hypoxemic respiratory failure ELISSA On 4 L oxygen; wears 24/7 Wears CPAP HS; brought her own from home DM2 Continue home long-acting insulin Hold Jamarcussparklepa STAFFORD SSI A1C 7.0; ranges 6.8-7.5 over past year. Noncompliance; may benefit from CDE Advised to follow-up with PCP as outpatient Morbid obesity Continue Mounjaro Follow-up with PCP and medical chief technician May be contributing factor to positioning/draining HFpEF: Discontinuing lasix and trail of torsemide 40mg daily per discussion with Dr. Lenz as above On KcL supplement Monitor for fluid overload Most recent ECHO: 01/2025: ECHO 60-65% LVWMN with MR/TR Paroxysmal atrial fibrillation A flutter On metoprolol succinate and Eliquis; continue History of PE and recurrent DVT Status post IVC filter On Eliquis; continue Carotid artery stenosis status post right TACR in August 2023 On Plavix and statin Hyperlipidemia Takes Rosuvastatin;continue Fibromyalgia: On duloxetine and gabapentin; continue Depression and anxiety On clonazepam and duloxetine Hypothyroidism: Continue levothyroxine GERD On Protonix; continue Restless leg syndrome: On ropinirole; continue DVT Px: Eliquis Code status: Full Code Disposition Home with home health Total Time Total Time Spent Total Time Spent (In Minutes): 48 minutes Discharge Plan Discharge Items Patient Disposition: Home - Home Health Services Reason For Visit: COMPLICATED UTI Discharge Diagnosis: VRE UTI with nephrostomy tube in place, ELSIE Condition on Discharge: Fair Activity: Resume your previous activity Non-emergency contact: Primary Care Provider and Armature Winder Call non-emergency contact if: you have any medication questions, your symptoms worsen, your pain is concerning for you and you have a fever Follow-up/Referrals: Erik Lenz MD [Surgeon] - (The office will call you for a follow up appointment.) Galdino Andujar DO [Primary Care Provider] - (The office will contact you with a follow up appointment.) Diet: Carb Consistent or DM2 and Heart Healthy Addtl Attending Provider Instructions: MEDICATION CHANGES: CONTINUE: IV Daptomycin 850mg daily x 10 days forcomplicated UTI Torsemide 40mg by mouth once daily HOLD: Crestor while on Daptomycin (antibiotic) as above STOP: Lasix 20mg daily RECOMMENDATIONS FOR FOLLOW-UP: Follow up with PCP as scheduled. Urology to arrange follow up for stent removal while on antibiotics. Nephrology office will call with follow up appointment in 1-2 weeks. Please get repeat labwork (CMP and CK) within 1 week. OTHER INSTRUCTIONS: Seek medical attention if you have: * temperature above 101 * chest pain or trouble breathing * abdominal pain, nausea, vomiting * diarrhea, dark stools or bloody stools * any unanswered questions or concerns Call 911 if symptoms are severe. Please take good care of yourself. Call if you have any questions or problems. You can reach a [facility] hospitalist on duty at [facility] 24 hours a day by calling [phone]. Addtl Veneer Splicer Provider Instructions: -- Follow-up with your primary care physician Dr. Galdino Andujar in 1 week --Follow-up with your gas pit worker Dr. Lenz in 1 to 2 weeks with repeat blood work -- Hold taking your cholesterol medication rosuvastatin while on IV daptomycin. Can resume your cholesterol medication after completion of IV antibiotic course. -- Complete IV daptomycin (antibiotic) course as recommended by infectious d jaimie. Seek immediate medical attention if your symptoms reoccur or worsen Please review medication list provided on discharge for any medication changes as instructed. Please call if you have any questions or problems. You can reach a [facility] hospitalist on duty at [facility] 24 hours a day by calling [phone] Pending Studies at Discharge: No Stand-Alone Forms: My [facility], Smoking Cessation Medications and DC Order Prescriptions: New torsemide 40 mg tablet 40 mg PO DAILY Qty: 30 0RF daptomycin 500 mg recon soln 850 mg IV DAILY 10 Days Rx Instructions: administer over 30 mins Continued clonazepam 0.5 mg tablet 0.5 mg PO TID sennosides-docusate sodium [Senna-Time S] 8.6-50 mg tablet 1 tab PO BID tramadol 50 mg tablet 50 mg PO Q8 PRN (Reason: Pain) Hold Instructions: Resume on 04/27/25. Please hold tramadol while on Linezolid antibiotic due to interaction magnesium oxide 400 mg (241.3 mg magnesium) tablet 400 mg PO BID ropinirole 2 mg tablet 2 mg PO HS levothyroxine 200 mcg tablet 200 mcg PO DAILYBB Qty: 30 0RF Rx Instructions: Reduced to 200meq daily while admitted trazodone 50 mg tablet 50 mg PO HS gabapentin 300 mg capsule 300 mg PO [facility] duloxetine 60 mg capsule,delayed release(DR/EC) 60 mg PO QAM Rx Instructions: TOTAL DOSE 90 MG--TAKES WITH 30 MG CAP. fluticasone propionate 50 mcg/actuation spray,suspension 2 spray INTRANASAL [facility] insulin degludec [Tresiba FlexTouch U-100] 100 unit/mL (3 mL) insulin pen 15 unit SUBCUT QPM insulin aspart U-100 [Novolog FlexPen U-100 Insulin] 100 unit/mL (3 mL) insulin pen See Rx Instructions .ROUTE .COMPLEX Rx Instructions: TAKES 8 UNITS W/BREAKFAST, 6 UNITS W/LUNCH, & 10 UNITS W/SUPPER. PLUS SLIDING SCALE 1 UNIT FOR EVERY 30 UNITS BG >150. Mounjaro 7.5 mg/0.5 mL pen injector 7.5 mg SUBCUT WK Rx Instructions: SATURDAYS cholecalciferol (vitamin D3) 25 mcg (1,000 unit) Tablet 25 mcg PO QAM clopidogrel 75 mg tablet 75 mg PO QAM metoprolol succinate 25 mg Tablet Extended Release 24 Hr 37.5 mg PO QAM Qty: 30 0RF Eliquis 5 mg Tablet 5 mg PO BID Qty: 60 0RF potassium chloride 10 mEq capsule, extended release 10 meq PO BID albuterol sulfate 2.5 mg /3 mL (0.083 %) Solution For Nebulization 2.5 mg INHALATION DIRECTED PRN (Reason: Shortness Of Breath Or Wheezing) acetaminophen [Tylenol Extra Strength] 500 mg Tablet 500 - 1,000 mg PO Q8H MDD 3 GRAMS APAP/24 HOURS PRN (Reason: Pain) pantoprazole 20 mg tablet,delayed release (DR/EC) 20 mg PO QAM cyanocobalamin (vitamin B-12) [Vitamin B-12] 500 mcg Tablet 500 mcg PO DAILY albuterol sulfate 5 mg/mL Solution For Nebulization 2.5 mg INHALATION DIRECTED PRN (Reason: Shortness Of Breath Or Wheezing) duloxetine 30 mg capsule,delayed release(DR/EC) 30 mg PO QAM Rx Instructions: TOTAL DOSE 90 MG--TAKES WITH 60 MG CAP. Lactobacillus acidophilus 10 billion cell Capsule 10,000 mmu cells PO DAILY tamsulosin 0.4 mg capsule 0.4 mg PO QAM Held rosuvastatin 5 mg tablet 5 mg PO QAM Hold Instructions: Resume on 04/27/25. Can resume once Daptomycin course is complete Discontinued furosemide 40 mg tablet 20 mg PO QAM Discharge Orders: Discharge Order (Routine); Ordered 04/17/25 Ordered By: Pablo Loya/Other Patient Handouts: Managing Type 2 Diabetes, UTIs Admission Data Admit Date/Time: 04/12/25 20:27 Attending Provider: Pablo Borden Admit Provider: Abhilash Montes Primary Care Provider: Galdino Andujar Other Providers: Abhilash Montes; Mina Serrano; Fe Ponce; Ihsan Muñoz; Kaley Thornton; Al Arriaga; Jennifer Granados; Víctor Schrader; Khushi Godfrey; Gee Messer; Galdino Sauceda; Carmelo Rodriguez; Henrry Bernal; Zachery Duncan I.; Jorge Rose II; Clover Wang; Michael Rodas; Rubén Krishnan; Kathie Mccarthy; [place] Other Interventions: Discharge Summary Assessment (RN) Last Done: 04/16/25 13:11
[2025-04-17] MEDS: DAPTOmycin 850 MG in SYRINGE 0 ML IV SCH (14:11)
== END 2025-04-17 15:01 | disposition home health service (06) | DRG 690 ==
LOC: ED 17:35 → 3N 20:27 → SUATTDRO 20:27 → 3N 22:07

== ENCOUNTER 2025-09-10 09:20 | Inpatient (IN) ==
--- NOTE | 2025-09-10 09:59 | Emergency Department Note ---
Impression & Plan ELSIE (acute kidney injury), UTI (urinary tract infection), History of insertion of nephrostomy tube ED Provider Note ED Provider Note NAME: GEENA MAC AGE:70 SEX: Female : 1955 ARRIVES VIA: EMS INFORMANT: Patient ED PROVIDER(s): Sadia Luevano DO CHIEF COMPLAINT: abnorma outpt labs HPI: This is a 70-year-old female who presents to the emergency department after being contacted by her PCPs office and told to come to the emergency department immediately due to abnormal outpatient labs. Patient states she had lab work done last week as part of her visit for her routine 3-month checkup with her PCP. She states they told her that her creatinine was slightly elevated compared to her baseline and wanted her to drink more water. She states at that time they also told her to decrease her furosemide from 30 mg to 20 mg. She states they then rechecked the blood work yesterday. She states she got a call this morning that her creatinine was even worse and she was to come to the ER immediately given her history. Patient does have a prior history of recurrent urinary tract infections. She states she has been doing better since she had a percutaneous nephrostomy tube placed. Patient states she does follow with nephrology and urology. She states she does not usually have any symptoms though when she gets a urinary tract infection. Patient states she has not noticed any changes to the drainage from her PERC nephrostomy bag or from her usual urinary habits. She denies any change in bowel movements. She states that she has visiting nurses that come to her residence 3 days a week to help flush and monitor the PERC nephrostomy tube. She states her blood pressure was slightly low yesterday and she did feel slightly dizzy. She denies any symptoms today. PAST MEDICAL HISTORY:See Below PAST SURGICAL HISTORY:See Below FAMILY HISTORY:See Below SOCIAL HISTORY:See Below HOME MEDICATIONS:See Below ALLERGIES:See Below VITALS:See Below PHYSICAL EXAMINATION: GENERAL: alert, well appearing, well nourished, no distress, non-toxic EYE EXAM: normal conjunctiva, PERRL and EOM's grossly intact OROPHARYNX: no exudate, no erythema, lips, buccal mucosa, and tongue normal and mucous membranes are moist NECK: supple, no nuchal rigidity, no adenopathy, non-tender LUNGS: Clear to auscultation. Normal chest wall mechanics, no w/r/r HEART: no murmurs, S1 normal and S2 normal ABDOMEN: abdomen soft, non-tender, normo-active bowel sounds, no masses, no rebound or guarding. BACK: Back is symmetrical on inspection and there is no deformity, no midline tenderness, no CVA tenderness. SKIN: no rashes, petechiae, orbruising UPPER EXTREMITIES: upper extremities are grossly normal. FROM, nml pulses b/l. LOWER EXTREMITIES: No pitting edema. FROM, nml pulses b/l. NEURO EXAM: Normal sensorium, cranial nerves II-XII grossly intact, normal speech, no facial droop,nogross weakness of arms, no gross weakness of legs. Gross sensation intact. No ataxia. Vital Signs: reviewed and remarkable Differential Diagnosis: dehydration, stroke, anemia, hypoglycemia, hyponatremia, hypernatremia, urinary tract infection, pneumonia, bronchitis, sepsis, gastroenteritis, additional abdominal pathology, metabolic abnormalities, as well as others were considered MEDICAL DECISION MAKING: This is a 70-year-old female who presents to the emergency department after receiving a phone call from her PCP regarding abnormal creatinine on her outpatient labs. Patient was afebrile and hemodynamically stable. Patient with complex past medical history. Patient had no focal symptoms on bedside evaluation. Labs drawn and sent, IV established, EKG performed and interpreted at bedside, and patient placed on telemetry. Urine collected and sent. Patient sent for CT abdomen pelvis additionally which showed the PERC nephrostomy tube in good position, no other obstructive uropathy noted. Patient's creatinine is elevated compared to prior. Patient was given gentle slow IV fluid hydration. Patient had no neurovascular symptoms. I did review prior urine cultures and discussed it with ED pharmacistMarleny. She was started on IV antibiotics. Blood cultures, procalcitonin, lactic acid has been added. No evidence of evolving sepsis at this time. Given extensive past medical history and concern for ELSIE and accompanying UTI, case discussed with the hospitalist team for additional evaluation and management. Consultation(s): 1328: Discussed with [facility] hospitalist team, for additional evaluation and mgmt. ER Treatment Provided: See below Diagnostics Interpreted By Me: -ECG: Normal sinus at 75, first-degree AV block, normal axis, normal intervals, no acute ST/T wave changes -Cardiac Monitoring: An order was placed for continuous cardiac monitoring. The monitor shows a rate of 77 with normal sinus rhythm. -Laboratory studies: As stated above and show below. 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 50-69% proximal right subclavian artery stenosis. Antegrade flow in the left vertebral artery. Normal flow in the left subclavian artery. Carotid stenosis, right Cerebrovascular duplex 07/11/23: 80-99% R ICA stenosis. No hemodynamically significant stenosis in the LICA. Acute on chronic kidney failure (Acute) Per urology records Per records elevated creatinine stable since 12/2023 CKD (chronic kidney disease), stage III (Chronic) Follows with [facility] ELISSA on CPAP (Chronic) CPAP + 3L O2 (O2 is continuous) HTN (hypertension) (Chronic) HLD (hyperlipidemia) (Chronic) Morbid obesity (Chronic) Depression with anxiety (Chronic) Hypothyroidism (Chronic) GERD (gastroesophageal reflux disease) (Chronic) RLS (restless legs syndrome) (Chronic) Presence of IVC filter (Chronic) 2008 Diabetes (Chronic) Fibromyalgia (Chronic) Medical History Elevated troponin UTI (urinary tract infection) VRE (vancomycin resistant enterococcus) culture positive Sepsis Sinus tachycardia Volume overload Acute hypoxemic respiratory failure Bacteremia due to Klebsiella pneumoniae Complicated urinary tract infection Ureteral stent retained Acute UTI (urinary tract infection) Following with urology Arthralgia Fatigue Left knee DJD Ambulatory dysfunction Fall Hematuria Hypoglycemia Urinary frequency Lumbago with sciatica Lower extremity pain, bilateral Major depression, recurrent Sciatica Non compliance w medication regimen Multiple falls Generalized body aches Pickwickian syndrome Obesity hypoventilation syndrome Left radial head fracture Weakness Orthostasis Hip pain, right Knee pain, right Abdominal pain Hepatosplenomegaly Hypomagnesemia CHF (congestive heart failure) HIT (heparin-induced thrombocytopenia) 2008, [facility] then life flight to [place] > "resolved" Right knee DJD (07/24/14) Bilateral flank pain Acute kidney injury superimposed on chronic kidney disease Leukocytosis Hydronephrosis History of pulmonary embolism 2008 s/p zoraida filter History of DVT (deep vein thrombosis) 2008 (during ICU [place] admission/PNA) Subclavian arterial stenosis (06/2023) Cerebrovascular duplex study 06/2023: Retrograde flow in the right vertebral artery. 50-69% proximal right subclavian artery stenosis. Antegrade flow in the left vertebral artery. Normal flow in the left subclavian artery. Hx of pulmonary edema Pickwickian syndrome Orthostasis Lumbago with sciatica Left knee DJD Hx of hydronephrosis Hyperlipemia Hypertension HIT (heparin-induced thrombocytopenia) (2008) hx - [facility] then life flight to [place] > "resolved" Deep vein thrombosis (DVT) Recurrent per records On Eliquis Initially occurred during ICU [place] admission, s/p zoraida filter [address] Right LE doppler 11/2023 showed no DVT within right LE Hepatosplenomegaly Hx of fracture radius Depression with anxiety Chronic diastolic (congestive) heart failure follos with Dr. Woodall @ [facility] Hx of carotid artery stenosis surgery - R TCAR 09/09/23 Arthralgia Ambulatory dysfunction uses cane and electric scooter Hx of Clostridium difficile infection (12/2023) during inpatient admit to [facility], treated, no current sx Hx of constipation Hx of vertigo occasional Hx: UTI (urinary tract infection) frequent Hx of fall (11/2023) last fall was November 2023 - no injuries Diabetes IDDM ELISSA on CPAP CPAP + 3L O2 (O2 is continuous) Hx of septic shock (12/2023) due to UTI - admit to [facility] Presence of IVC filter (2008) [facility], continues to be in place due to current clots behind right knee Hx pulmonary embolism (2008) s/p zoraida filter GERD (gastroesophageal reflux disease) RLS (restless legs syndrome) History of pneumonia (2008) x 8 weeks, [facility] then tx to [facility], "put me in a coma, [facility] had a trach then went to assisted with trach" Trach removed Sep 2009 Fibromyalgia Hypothyroidism Hx of pyelonephritis (12/2023) CKD (chronic kidney disease), stage III follows [facility] Nephrology Hx of congestive heart failure takes lasix, sees Dr. Jose C Garcia Chronic hypoxemic respiratory failure O2 3-4L at all times - sees Pulm @ [facility] Transient hypotension Mitral valve stenosis Mild per cardio records (due to severe calcification) Echo 06/2023: Borderline mild mitral stenosis secondary to severe mitral annular calcification, follows [facility] cardio Dr. Woodall Cataract, bilateral Neuropathy feet On home oxygen therapy 3-4L continuous Surgical History History of tracheostomy 06/2009 (per [facility] records), secondary to acute respiratory failure in setting of PNA, reversed a few months later History of cholecystectomy History of total right knee replacement History of thyroidectomy, total 2010 History of colon resection secondary to R colon perforation, resected treated with colostomy and eventual reversal in 2008, Dr. Lerma History of colon resection (2008) secondary to R colon perforation, resected treated with colostomy and eventual reversal in 2008 Hx of tracheostomy (06/2009) (per [facility] records), secondary to acute respiratory failure in setting of PNA, reversed a few months later in 2009 Hx of cystoscopy (11/25/23) with stent placement right side due to infection History of transcarotid artery revascularization (TCAR) (08/2023) right, [facility] History of right knee joint replacement (Unknown) > 10 years Hx laparoscopic cholecystectomy Hx of thyroidectomy (2011) total Family history of reaction to anesthesia Brother/niece- PONV Brother- "wakes up violent" History of colostomy reversal (10/1997) History of tooth extraction History of arthroscopy (Unknown) left ankle , > 10 years History of incisional hernia repair Nausea and vomiting after administration of anesthetic agent History of colonoscopy Family History Father , age 74 Lung cancer Mother , age 45 Cirrhosis Social History Smoking Status: Former smoker Tobacco Type: Cigarettes Cigarettes Per Day: 1996; Second Hand Exposure: No; Do You Dip or Chew Tobacco: No; Tobacco Cessation Education Requested by Patient: No Hx Alcohol Use: No Hx Substance Use: No Preferred Language: Kittitian Communication Ability: Effective Materials Coordinator Required: No Beliefs That Will Affect Care: None marital status: Single Current Living Situation: Alone Current Living Situation Comment: Lives by self in apartment How many Children do You have: 0 Other Information That Helps Us Care for You: No Feels Safe at Home: Yes Safety Concerns: Feels Safe At This Time Assistive Devices: Glasses, Oxygen - Continuous and Walker Allergies Allergies Allergy/AdvReac Type Severity Reaction Status Date / Time morphine Allergy Severe Swelling, Verified 08/13/25 15:08 "Violent reaction- almost " pollen extracts Allergy Intermediate HAYFEVER Verified 08/13/25 15:08 SYMPTOMS heparin AdvReac Severe HEPARIN Verified 08/13/25 15:08 INDUCED THROMBOCYTOPENIA bupropion [From Wellbutrin] AdvReac Intermediate Recurrent Verified 08/13/25 15:08 falls as per patient codeine AdvReac Intermediate Hallucinati Verified 08/13/25 15:08 ons dapagliflozin [From Farxiga] AdvReac Intermediate Yeast Verified 08/13/25 15:08 infections empagliflozin AdvReac Intermediate Yeast Verified 08/13/25 15:08 [From Jardiance] infections hydrocodone [From Vicodin] AdvReac Intermediate Drowsy Verified 08/13/25 15:08 tetanus toxoid, adsorbed AdvReac Intermediate Passed Verified 08/13/25 15:08 out, "got sick" as child Home Meds Home Medications Medication Instructions Recorded Confirmed clonazepam 0.5 mg tablet 0.5 mg PO TID 09/20/23 09/10/25 magnesium oxide 400 mg (241.3 mg 400 mg PO BID 09/20/23 09/10/25 magnesium) tablet ropinirole 2 mg tablet 2 mg PO HS 09/20/23 09/10/25 sennosides 8.6 mg-docusate sodium 1 tab PO BID 09/20/23 09/10/25 50 mg tablet (Senna-Time S) tramadol 50 mg tablet 50 mg PO Q8 PRN Pain 09/20/23 09/10/25 cholecalciferol (vitamin D3) 25 25 mcg PO QAM 01/16/24 09/10/25 mcg (1,000 unit) tablet clopidogrel 75 mg tablet 75 mg PO QAM 01/16/24 09/10/25 duloxetine 60 mg capsule,delayed 60 mg PO QAM 12/09/24 09/10/25 release fluticasone propionate 50 2 spray intranasal AMHS 12/09/24 09/10/25 mcg/actuation nasal spray,suspension gabapentin 300 mg capsule 300 mg PO AMHS 12/09/24 09/10/25 insulin aspart U-100 100 unit/mL See Rx Instructions .Route .COMPLEX 12/09/24 09/10/25 (3 mL) subcutaneous pen (Novolog FlexPen U-100 Insulin aspart) insulin degludec 100 unit/mL (3 15 unit subcut QPM 12/09/24 09/10/25 mL) subcutaneous pen (Tresiba FlexTouch U-100 insulin) rosuvastatin 5 mg tablet 5 mg PO QAM 12/09/24 09/10/25 trazodone 50 mg tablet 50 mg PO HS 12/09/24 09/10/25 tirzepatide 7.5 mg/0.5 mL 7.5 mg subcut WE 02/25/25 09/10/25 subcutaneous pen injector (Kevan) acetaminophen 500 mg tablet 500 - 1,000 mg PO Q8H PRN Pain 04/07/25 09/10/25 (Tylenol Extra Strength) albuterol sulfate 2.5 mg/3 mL 2.5 mg inhalation DIRECTED PRN 04/07/25 09/10/25 (0.083 %) solution for nebulization Shortness Of Breath Or Wheezing cyanocobalamin (vitamin B-12) 500 500 mcg PO DAILY 04/07/25 09/10/25 mcg tablet (Vitamin B-12) pantoprazole 20 mg tablet,delayed 20 mg PO QAM 04/07/25 09/10/25 release potassium chloride 10 mEq 10 meq PO BID 04/07/25 09/10/25 capsule,extended release dicyclomine 20 mg tablet 20 mg PO QID PRN ABD CRAMPING 05/03/25 09/10/25 ondansetron HCl 4 mg tablet 4 mg PO Q6H PRN NAUSEA/VOMITING 05/03/25 09/10/25 torsemide 20 mg tablet 30 mg PO QAM 05/03/25 09/10/25 baclofen 5 mg tablet 5 mg PO BID PRN Muscle Spasm 08/13/25 09/10/25 Previous Rx's Medication Instructions Recorded levothyroxine 200 mcg tablet 200 mcg PO DAILYBB #30 tabs 12/07/23 apixaban 5 mg tablet (Eliquis) 5 mg PO BID #60 tabs 01/31/25 metoprolol succinate 25 mg 37.5 mg (1.5 x 25 mg) PO QAM #30 01/31/25 tablet,extended release 24 hr tabs Results & Data (ED) Vital Signs Vital Signs - 24 hr 09/10/25 09:28 09/10/25 09:28 09/10/25 10:00 Temperature 36.6 C 36.6 C Temperature Source Oral Oral Pulse Rate 83 78 Pulse Rate [Apical] 83 Pulse Rate from SpO2 Sensor 79 Respiratory Rate 16 16 14 Respiratory Effort / Characteristics Non-Labored Spontaneous Non-Labored Spontaneous Respiratory Depth Normal Normal Respiratory Pattern Regular Regular Blood Pressure 143/93 H Blood Pressure [Right Arm] 143/93 H Blood Pressure Mean 109 Blood Pressure Mean [Right Arm] 109 Pulse Oximetry 98 98 100 Oxygen Delivery Method Room Air Room Air Sepsis Recent Fever Within 48 Hours No Sepsis New/Unexplained Change in Mental Status No Sepsis Action Taken by Nursing No Action Required 09/10/25 10:00 09/10/25 10:01 09/10/25 10:30 Temperature Temperature Source Pulse Rate 79 75 Pulse Rate [Apical] Pulse Rate from SpO2 Sensor 77 Respiratory Rate 15 Respiratory Effort / Characteristics Respiratory Depth Respiratory Pattern Blood Pressure 138/90 Blood Pressure [Right Arm] Blood Pressure Mean 104 Blood Pressure Mean [Right Arm] Pulse Oximetry 100 Oxygen Delivery Method Sepsis Recent Fever Within 48 Hours Sepsis New/Unexplained Change in Mental Status Sepsis Action Taken by Nursing 09/10/25 10:30 09/10/25 11:00 09/10/25 11:30 Temperature Temperature Source Pulse Rate 77 78 Pulse Rate [Apical] Pulse Rate from SpO2 Sensor 76 79 Respiratory Rate 19 14 Respiratory Effort / Characteristics Respiratory Depth Respiratory Pattern Blood Pressure 94/64 L 110/73 112/68 Blood Pressure [Right Arm] Blood Pressure Mean 74 85 82 Blood Pressure Mean [Right Arm] Pulse Oximetry 99 98 Oxygen Delivery Method Sepsis Recent Fever Within 48 Hours Sepsis New/Unexplained Change in Mental Status Sepsis Action Taken by Nursing 09/10/25 12:03 09/10/25 12:06 09/10/25 12:30 Temperature Temperature Source Pulse Rate 90 85 80 Pulse Rate [Apical] Pulse Rate from SpO2 Sensor 85 80 Respiratory Rate 20 20 16 Respiratory Effort / Characteristics Respiratory Depth Respiratory Pattern Blood Pressure 125/84 125/84 96/53 L Blood Pressure [Right Arm] Blood Pressure Mean 97 97 67 Blood Pressure Mean [Right Arm] Pulse Oximetry 93 99 Oxygen Delivery Method Sepsis Recent Fever Within 48 Hours Sepsis New/Unexplained Change in Mental Status Sepsis Action Taken by Nursing 09/10/25 13:00 09/10/25 13:00 Temperature Temperature Source Pulse Rate 83 82 Pulse Rate [Apical] Pulse Rate from SpO2 Sensor 82 Respiratory Rate 18 20 Respiratory Effort / Characteristics Respiratory Depth Respiratory Pattern Blood Pressure 104/64 104/64 Blood Pressure [Right Arm] Blood Pressure Mean 77 74 Blood Pressure Mean [Right Arm] Pulse Oximetry 100 99 Oxygen Delivery Method Sepsis Recent Fever Within 48 Hours Sepsis New/Unexplained Change in Mental Status Sepsis Action Taken by Nursing Laboratory Data 09/10/25 10:19 09/10/25 10:19 Lab Results 09/10/25 09/10/25 09/10/25 Range/Units 09:55 10:19 12:31 WBC 9.80 (4.8-10.8) K/ul RBC 3.85 L (4.20-5.40) M/uL Hgb 12.0 (12.0-16.0) g/dL Hct 36.8 L (37.0-47.0) % MCV 95.6 (80.0-100.0) fL MCH 31.2 (25.0-34.0) pg MCHC 32.6 (32.0-36.0) g/dL RDW Std Deviation 44.9 (36.4-46.3) fL RDW Coeff of Adolfo 12.7 (11.5-14.5) % Plt Count 264 (130-400) K/uL MPV 10.1 (9.4-12.4) fL Immature Gran % (Auto) 0.5 % Neut % (Auto) 71.8 % Lymph % (Auto) 16.5 % [place] % (Auto) 7.0 % Eos % (Auto) 3.8 % Baso % (Auto) 0.4 % Neut # (Auto) 7.03 H (1.40-6.50) K/uL Lymph # (Auto) 1.62 (1.20-3.40) K/uL [place] # (Auto) 0.69 H (0.11-0.59) K/uL Eos # (Auto) 0.37 (0.00-0.50) K/uL Baso # (Auto) 0.04 (0.00-0.20) K/uL Immature Gran # (Auto) 0.05 (0.01-0.20) K/uL PT 11.1 (9.0-12.0) Seconds INR 1.1 (0.9-1.1) Sodium 139 (136-145) mmol/L Potassium 4.0 (3.5-5.1) mmol/L Chloride 99 (98-107) mmol/L Carbon Dioxide 33 H (21-32) mmol/L Anion Gap 7 (3-11) BUN 51 H (6-23) mg/dl Creatinine 2.42 H (0.6-1.2) mg/dl Est Cr Clr Drug Dosing 28.2 ml/min eGFR 20.99 BUN/Creatinine Ratio 21.1 H (10-20) Glucose 93 (70-99(Fasting)) mg/dl Lactate (0.4-2.0) mmol/L Calcium 9.5 (8.6-10.3) mg/dl Magnesium 2.2 (1.7-2.4) mg/dl Total Bilirubin 0.4 (0.2-1.0) mg/dl AST 12 L (13-39) U/L ALT 10 (7-52) U/L Alkaline Phosphatase 109 H (34-104) U/L Total Protein 7.7 (6.0-8.3) gm/dl Albumin 3.6 (3.4-5.0) gm/dl Globulin 4.1 H (2.5-4.0) gm/dl Albumin/Globulin Ratio 0.9 (0.9-2) Lipase 15 (11-82) U/L Procalcitonin < 0.02 (0-0.5) ng/ml Urine Color Yellow Urine Appearance Cloudy A (Clear) Urine pH 6.5 (4.5-7.5) Ur Specific [place] 1.012 (1.000-1.030) Urine Protein 1+ H (Negative) Urine Glucose (UA) Negative (Negative) Urine Ketones Negative (Negative) Urine Blood Negative (Negative) Urine Nitrite Negative (Negative) Urine Bilirubin Negative (Negative) Urine Urobilinogen Negative (Negative) Ur Leukocyte Esterase 3+ H (Negative) Urine WBC (Auto) >50 H (0-5) /hpf Urine RBC (Auto) 0-2 (0-2) /hpf U Hyaline Cast (Auto) 3-5 H (0-2) /lpf U Epithel Cells (Auto) 0-2 (0-2) /hpf Urine Bacteria (Auto) 3+ H (None Seen) Urine Osmolality 317 L (500-800) mOsm/kg Ur Random Creatinine 66.2 mg/dl U Random Total Protein 34.3 H (0-11.9) mg/dl Protein/Creatinin Ratio 0.5 H (0-0.2) Urine Sodium 30 mmol/L Urine Potassium 38.0 mmol/L Urine Chloride 21 mmol/L Urine Comment 09/10/25 Range/Units 12:35 WBC (4.8-10.8) K/ul RBC (4.20-5.40) M/uL Hgb (12.0-16.0) g/dL Hct (37.0-47.0) % MCV (80.0-100.0) fL MCH (25.0-34.0) pg MCHC (32.0-36.0) g/dL RDW Std Deviation (36.4-46.3) fL RDW Coeff of Adolfo (11.5-14.5) % Plt Count (130-400) K/uL MPV (9.4-12.4) fL Immature Gran % (Auto) % Neut % (Auto) % Lymph % (Auto) % [place] % (Auto) % Eos % (Auto) % Baso % (Auto) % Neut # (Auto) (1.40-6.50) K/uL Lymph # (Auto) (1.20-3.40) K/uL [place] # (Auto) (0.11-0.59) K/uL Eos # (Auto) (0.00-0.50) K/uL Baso # (Auto) (0.00-0.20) K/uL Immature Gran # (Auto) (0.01-0.20) K/uL PT (9.0-12.0) Seconds INR (0.9-1.1) Sodium (136-145) mmol/L Potassium (3.5-5.1) mmol/L Chloride (98-107) mmol/L Carbon Dioxide (21-32) mmol/L Anion Gap (3-11) BUN (6-23) mg/dl Creatinine (0.6-1.2) mg/dl Est Cr Clr Drug Dosing ml/min eGFR BUN/Creatinine Ratio (10-20) Glucose (70-99(Fasting)) mg/dl Lactate 1.8 (0.4-2.0) mmol/L Calcium (8.6-10.3) mg/dl Magnesium (1.7-2.4) mg/dl Total Bilirubin (0.2-1.0) mg/dl AST (13-39) U/L ALT (7-52) U/L Alkaline Phosphatase (34-104) U/L Total Protein (6.0-8.3) gm/dl Albumin (3.4-5.0) gm/dl Globulin (2.5-4.0) gm/dl Albumin/Globulin Ratio (0.9-2) Lipase (11-82) U/L Procalcitonin (0-0.5) ng/ml Urine Color Urine Appearance (Clear) Urine pH (4.5-7.5) Ur Specific [place] (1.000-1.030) Urine Protein (Negative) Urine Glucose (UA) (Negative) Urine Ketones (Negative) Urine Blood (Negative) Urine Nitrite (Negative) Urine Bilirubin (Negative) Urine Urobilinogen (Negative) Ur Leukocyte Esterase (Negative) Urine WBC (Auto) (0-5) /hpf Urine RBC (Auto) (0-2) /hpf U Hyaline Cast (Auto) (0-2) /lpf U Epithel Cells (Auto) (0-2) /hpf Urine Bacteria (Auto) (None Seen) Urine Osmolality (500-800) mOsm/kg Ur Random Creatinine mg/dl U Random Total Protein (0-11.9) mg/dl Protein/Creatinin Ratio (0-0.2) Urine Sodium mmol/L Urine Potassium mmol/L Urine Chloride mmol/L Urine Comment Administered Medications Sodium Chloride (Nss) 1,000 mls @ 80 mls/hr IV .[id number] ROBERT Stop: 09/11/25 16:51 Last Admin: 09/10/25 16:44 Dose: 80 mls/hr Documented By: moiraw Tramadol HCl (Tramadol Hcl 50 Mg Tablet) 50 mg PO Q8 PRN PRN Reason: Pain Stop: 10/10/25 15:51 Last Admin: 09/10/25 16:52 Dose: 50 mg Documented By: agw Discontinued Medications Sodium Chloride (Nss) 500 mls @ 80 mls/hr IV .[id number] ROBERT Stop: 09/10/25 15:59 Last Infusion: 09/10/25 16:58 Dose: Infused Documented By: Admin: 09/10/25 10:21 Dose: 80 mls/hr Documented By: CORRINE Acetaminophen (Ofirmev) 1,000 mg in 100 mls @ 400 mls/hr IV NOW STA Stop: 09/10/25 11:36 Last Infusion: 09/10/25 13:07 Dose: Infused Documented By: ching Admin: 09/10/25 12:39 Dose: 400 mls/hr Documented By: ching Cefepime HCl (Maxipime 2000mg) 2,000 mg in 20 mls @ 5 mls/min IV NOW ONE Stop: 09/10/25 11:33 Last Admin: 09/10/25 12:39 Dose: 5 mls/min Documented By: ching Daptomycin 850 mg/ Syringe 17 mls @ 8.5 mls/min IV NOW ONE; Protocol Stop: 09/10/25 11:31 Last Admin: 09/10/25 12:40 Dose: 8.5 mls/min Documented By: ching Imaging Data Radiologist's Impression: Abdomen/Pelvis CT 09/10/25 10:[address] WITHOUT CONTRAST CT DOSE: 1422.96 mGy.cm HISTORY: Acute kidney injury ELSIE, perc nephro tube right TECHNIQUE: Multiaxial CT images of the abdomen and pelvis were performed without contrast. A dose lowering technique was utilized adhering to the principles of ALARA. COMPARISON STUDY: 05/03/2025 FINDINGS: Mitral annular and coronary arterial calcifications are present. Bibasilar atelectasis/scarring redemonstrated. No pneumatosis or pneumoperitoneum. The unenhanced spleen measures up to 13.67 m in length. Unremarkable pancreas, adrenal glands and liver. Cholecystectomy. Unremarkable left kidney. Percutaneous right-sided nephrostomy is in place, now with distal tip repositioned within the anterior aspect of the renal pelvis. There is improved hydronephrosis. Dilation of the right renal pelvis with adjacent peripelvic inflammatory stranding. No urolith. Unremarkable urinary bladder and uterus. Atherosclerosis of the aorta and branch vessels. Infrarenal IVC filter in place. Duodenal diverticula. No bowel obstruction or bowel wall thickening. There is moderate colonic fecal retention. Normal appendix. Diastases recti with anterior abdominal wall hernia redemonstrated containing nonobstructed loop of transverse colon. No acute fracture. IMPRESSION: 1. Repositioned right sided percutaneous nephrostomy catheter with improved hydronephrosis compared to the 05/03/2025 study. 2. No urolith. 3. No bowel obstruction or bowel wall thickening. 4. Chronic findings as above. ACT 112: Negative or not required by law. The above report was generated using voice recognition software. It may contain grammatical, syntax or spelling errors. Electronically signed by: Enrico Gilliland M.D. 09/10/2025 12:36 PM Discharge Plan Visit Data Chief Complaint: Abnormal Labs/Diagnostic Testing Stated Complaint: ABNORMAL LAB ED Provider: Sadia Luevano Discharge Problem: ELSIE (acute kidney injury), UTI (urinary tract infection), History of insertion of nephrostomy tube Patient Disposition: Admitted As Inpatient Condition: Fair Discharge Instructions Interventions: ED Discharge Assessment Last Done: 09/10/25 15:22
[2025-09-10] MEDS: SODIUM CHLORIDE 0.9% 500 ML IV SCH (10:21)
[2025-09-10 10:23] LABS: Appearance Urine Cloudy (Clear); Bacteria Urine Automated 3+ (None Seen); Epithelial Cell Urine Auto 0-2 /hpf (0-2); Glucose Urine UA Negative (Negative); RBC Urine Automated 0-2 /hpf (0-2); WBC Urine Automated >50 /hpf (0-5)
[2025-09-10 10:36] LABS: Hematocrit (blood only) 36.8 % (37.0-47.0); Hemoglobin 12.0 g/dL (12.0-16.0); Immature Granulocytes # (auto) 0.05 K/uL (0.01-0.20); Immature Granulocytes % (auto) 0.5 %; Mean Corpuscular Hemoglobin 31.2 pg (25.0-34.0); Mean Corpuscular Volume 95.6 fL (80.0-100.0); Platelet Count 264 K/uL (130-400); RDW Standard Deviation 44.9 fL (36.4-46.3); Red Blood Count 3.85 M/uL (4.20-5.40); White Blood Count 9.80 K/ul (4.8-10.8)
[2025-09-10 10:55] LABS: Alanine Aminotransferase 10.0 U/L (7-52); Albumin Globulin Ratio 0.9 (0.9-2); Albumin Level 3.6 gm/dl (3.4-5.0); Alkaline Phosphatase 109.0 U/L (34-104); Anion Gap 7.0 (3-11); Bilirubin,Total 0.4 mg/dl (0.2-1.0); Blood Urea Nitrogen 51.0 mg/dl (6-23); Calcium 9.5 mg/dl (8.6-10.3); Carbon Dioxide 33.0 mmol/L (21-32); Chloride 99.0 mmol/L (98-107); Creatinine Clr Calc Pharmacy 28.2 ml/min; Globulin 4.1 gm/dl (2.5-4.0); Glucose 93.0 mg/dl (70-99(Fasting)); Lipase 15.0 U/L (11-82); Magnesium 2.2 mg/dl (1.7-2.4); Potassium 4.0 mmol/L (3.5-5.1); Sodium 139.0 mmol/L (136-145); Total Protein 7.7 gm/dl (6.0-8.3)
[2025-09-10 11:04] LABS: INR 1.1 (0.9-1.1); Prothrombin Time 11.1 Seconds (9.0-12.0)
--- NOTE | 2025-09-10 12:38 | CT Scan Report ---
ABDOMEN AND PELVIS CT WITHOUT CONTRAST CT DOSE: 1422.96 mGy.cm HISTORY: Acute kidney injury ELSIE, perc nephro tube right TECHNIQUE: Multiaxial CT images of the abdomen and pelvis were performed without contrast. A dose lo wering technique was utilized adhering to the principles of ALARA. COMPARISON STUDY: 05/03/2025 FINDINGS: Mitral annular and coronary arterial calcifications are present. Bibasilar atelectasis/scar ring redemonstrated. No pneumatosis or pneumoperitoneum. The unenhanced spleen measures up to 13.67 m in length. Unremarkable pancreas, adrenal glands and liver. Cholecystectomy. Unremarkable left kidney. Percutaneous right-sided nephrostomy is in place, now with distal tip repos itioned within the anterior aspect of the renal pelvis. There is improved hydronephrosis. Dilation of the right renal pelvis with adjacent peripelvic inflammatory stranding. No urolith. Unremarkable uri nary bladder and uterus. Atherosclerosis of the aorta and branch vessels. Infrarenal IVC filter in pl jenny. Duodenal diverticula. No bowel obstruction or bowel wall thickening. There is moderate colonic fecal retention. Normal appendix. Diastases recti with anterior abdominal wall hernia redemonstrated contai kayla nonobstructed loop of transverse colon. No acute fracture. IMPRESSION: 1. Repositioned right sided percutaneous nephrostomy catheter with improved hydronephrosis compared t o the 05/03/2025 study. 2. No urolith. 3. No bowel obstruction or bowel wall thickening. 4. Chronic findings as above. ACT 112: Negative or not required by law. The above report was generated using voice recognition software. It may contain grammatical, syntax o r spelling errors. Electronically signed by: Enrico Gilliland M.D. 09/10/2025 12:36 PM
[2025-09-10] MEDS: CEFEPIME 2000MG 2,000 MG/20 ML SYR IV ONE (12:39)
[2025-09-10] MEDS: ACETAMINOPHEN 1,000 MG/100 ML VIAL IV STA (12:39)
[2025-09-10] MEDS: DAPTOmycin 850 MG in SYRINGE 0 ML IV ONE (12:40)
--- NOTE | 2025-09-10 13:36 | History & Physical Report ---
Date of Service September 10, 2025 Assessment & Plan (1) ELSIE (acute kidney injury): (2) Complicated urinary tract infection: (3) Cellulitis of right lower extremity: (4) CKD (chronic kidney disease), stage III: (5) Chronic diastolic heart failure: (6) Chronic respiratory failure: (7) HTN (hypertension): (8) Diabetes: Plan This is a 70-year-old female with significant past medical history of T2DM, CKD stage III, diastolic CHF, right hydronephrosis status post right nephrostomy tube, right transcarotid artery revascularization in 08/2023, chronic hypoxemic respiratory failure, HTN, recurrent DVT, IVC filter, hyperlipidemia, GERD, lumbar disc disease, RLS, ELISSA with CPAP intolerance, HIT and ambulatory dysfunction who presents to ED after being referred by her PCP. #Acute on Chronic CKD -3 baseline cr 1.4, bun/cr 51 and 2.42 blood pressure running on lower side suspect this is pre renal in setting of low BP and torsemide use pt reports ~ 100lb weight loss associated with mounjaro use may need further reduced dose of torsemide (outpt pcp reduced from 30mg to 20mg daily) Will hold torsemide for now gentle IVF, check urine studies repeat bmp in a.m., if worsening consult Nephro CT a/p shows functioning and properly placed perc nephr tube tx UTI, does not appear to be obstructive process #Complicated UTI, hx of VRE #percutaneous nephrostomy tube initial urine specimen looks consistent with infection no UTI sx, she is afebrile and wbc is normal Daptomycin/Cefepime per previously cultures await urine culture #Possible RLE cellulitis pt with chronic venous stasis changes, but appears more erythematous and warm to touch regardless she is receiving skin coverage, monitor #T2DM, insulin dependent with polyneuropathy continue insulin per protocol gabapentin #Recurrent DVT with IVCF continue eliquis #PAF chronic stable on metoprolol and apixaban #ELISSA non compliant with CPAP #Chronic hypoxic resp failure with ILD on 2 L continue current O2 requirement, no exac #RLS: continue requip #Fibromyalgia : chronic, stable, continue Cymbalta, gabapentin and tramadol #MDD: chronic stable continue cymbalta and clonazepam #DVT ppx: eliquis FULL CODE PCP: Pratima Dispo: admit to [facility] Pt was seen and examined in collaboration with Dr. Gr, please see addendum I spent a total of 76 minutes coordinating, documenting and providing care for this patient excluding time spent in the performance of separately billed services or time spent by another provider/QHP. History of Present Illness Chief Complaint: Referred by PCP. Primary Care Provider: Galdino Andujar DO This is a 70-year-old female with significant past medical history of T2DM, CKD stage III, diastolic CHF, right hydronephrosis status post right nephrostomy tube, right transcarotid artery revascularization in 08/2023, chronic hypoxemic respiratory failure, HTN, recurrent DVT, IVC filter, hyperlipidemia, GERD, lumbar disc disease, RLS, ELISSA with CPAP intolerance, HIT and ambulatory dysfunction who presents to ED after being referred by her PCP. Patient was seen by her primary care provider on 09/02/25 Dr. Andujar. Outpatient lab work revealed an elevated creatinine. She was instructed to reduce her furosemide dose and had repeat blood work. It showed continued increase in her renal function in which she was referred to ED. She does have a known right nephrostomy tube in place secondary to right hydronephrosis. It is otherwise been functioning appropriately. Baseline cr per EPIC ~ 1.4. On 09/05 her bun/cr was 44 and 2.1 and 08/10 50 and 2.4. Pt reports feeling her "usual." She had been doing relatively well in regards to her nephrostomy tube. She feels it has been draining adequately and urine has been clear to dark. She still urinates and denies any typical uti sx including blood, burning or frequency. She is chronically constipated and feels it is worse today then normal. She states she was taking softeners that seemed to have her regular. She denies f/c/s, chest pain, sob, n/v/d. She has chronic occasional dizziness that is unchanged. She reports 1.5 weeks ago seeing some blood in her nephr tube, but none since. Allergies Allergy/AdvReac Type Severity Reaction Status Date / Time morphine Allergy Severe Swelling, Verified 08/13/25 15:08 "Violent reaction- almost " pollen extracts Allergy Intermediate HAYFEVER Verified 08/13/25 15:08 SYMPTOMS heparin AdvReac Severe HEPARIN Verified 08/13/25 15:08 INDUCED THROMBOCYTOPENIA bupropion [From Wellbutrin] AdvReac Intermediate Recurrent Verified 08/13/25 15:08 falls as per patient codeine AdvReac Intermediate Hallucinati Verified 08/13/25 15:08 ons dapagliflozin [From Farxiga] AdvReac Intermediate Yeast Verified 08/13/25 15:08 infections empagliflozin AdvReac Intermediate Yeast Verified 08/13/25 15:08 [From Jardiance] infections hydrocodone [From Vicodin] AdvReac Intermediate Drowsy Verified 08/13/25 15:08 tetanus toxoid, adsorbed AdvReac Intermediate Passed Verified 08/13/25 15:08 out, "got sick" as child Home Medications Medication Instructions Recorded Confirmed Type clonazepam 0.5 mg tablet 0.5 mg PO TID 09/20/23 09/10/25 History magnesium oxide 400 mg (241.3 mg 400 mg PO BID 09/20/23 09/10/25 History magnesium) tablet ropinirole 2 mg tablet 2 mg PO HS 09/20/23 09/10/25 History sennosides 8.6 mg-docusate sodium 1 tab PO BID 09/20/23 09/10/25 History 50 mg tablet (Senna-Time S) tramadol 50 mg tablet 50 mg PO Q8 PRN Pain 09/20/23 09/10/25 History levothyroxine 200 mcg tablet 200 mcg PO DAILYBB #30 tabs 12/07/23 09/10/25 Rx cholecalciferol (vitamin D3) 25 25 mcg PO QAM 01/16/24 09/10/25 History mcg (1,000 unit) tablet clopidogrel 75 mg tablet 75 mg PO QAM 01/16/24 09/10/25 History duloxetine 60 mg capsule,delayed 60 mg PO QAM 12/09/24 09/10/25 History release fluticasone propionate 50 2 spray intranasal AMHS 12/09/24 09/10/25 History mcg/actuation nasal spray,suspension gabapentin 300 mg capsule 300 mg PO AMHS 12/09/24 09/10/25 History insulin aspart U-100 100 unit/mL See Rx Instructions .Route .COMPLEX 12/09/24 09/10/25 History (3 mL) subcutaneous pen (Novolog FlexPen U-100 Insulin aspart) insulin degludec 100 unit/mL (3 15 unit subcut QPM 12/09/24 09/10/25 History mL) subcutaneous pen (Tresiba FlexTouch U-100 insulin) rosuvastatin 5 mg tablet 5 mg PO QAM 12/09/24 09/10/25 History trazodone 50 mg tablet 50 mg PO HS 12/09/24 09/10/25 History apixaban 5 mg tablet (Eliquis) 5 mg PO BID #60 tabs 01/31/25 09/10/25 Rx metoprolol succinate 25 mg 37.5 mg (1.5 x 25 mg) PO QAM #30 01/31/25 09/10/25 Rx tablet,extended release 24 hr tabs tirzepatide 7.5 mg/0.5 mL 7.5 mg subcut WE 02/25/25 09/10/25 History subcutaneous pen injector (Mounjaro) acetaminophen 500 mg tablet 500 - 1,000 mg PO Q8H PRN Pain 04/07/25 09/10/25 History (Tylenol Extra Strength) albuterol sulfate 2.5 mg/3 mL 2.5 mg inhalation DIRECTED PRN 04/07/25 09/10/25 History (0.083 %) solution for nebulization Shortness Of Breath Or Wheezing cyanocobalamin (vitamin B-12) 500 500 mcg PO DAILY 04/07/25 09/10/25 History mcg tablet (Vitamin B-12) pantoprazole 20 mg tablet,delayed 20 mg PO QAM 04/07/25 09/10/25 History release potassium chloride 10 mEq 10 meq PO BID 04/07/25 09/10/25 History capsule,extended release dicyclomine 20 mg tablet 20 mg PO QID PRN ABD CRAMPING 05/03/25 09/10/25 History ondansetron HCl 4 mg tablet 4 mg PO Q6H PRN NAUSEA/VOMITING 05/03/25 09/10/25 History torsemide 20 mg tablet 30 mg PO QAM 05/03/25 09/10/25 History baclofen 5 mg tablet 5 mg PO BID PRN Muscle Spasm 08/13/25 09/10/25 History Past Med/Surg History Problem List (Updated 09/10/25 @ 17:51 by Sadia Luevano DO) History of insertion of nephrostomy tube (Acute) UTI (urinary tract infection) (Acute) ELSIE (acute kidney injury) (Acute) Recurrent UTI History of infection with vancomycin resistant Enterococcus (VRE) (12/2023) VRE UTI during inpatient admit at [facility] ELSIE (acute kidney injury) (Acute) Insulin-requiring or dependent type II diabetes mellitus Atrial flutter Chronic hypoxic respiratory failure, on home oxygen therapy UPJ obstruction, acquired Polypharmacy Chronic respiratory failure Chronic diastolic heart failure Subclavian artery stenosis Cerebrovascular duplex study 06/2023: Retrograde flow in the right vertebral artery. 50-69% proximal right subclavian artery stenosis. Antegrade flow in the left vertebral artery. Normal flow in the left subclavian artery. Carotid stenosis, right Cerebrovascular duplex 07/11/23: 80-99% R ICA stenosis. No hemodynamically significant stenosis in the LICA. Acute on chronic kidney failure (Acute) Per urology records Per records elevated creatinine stable since 12/2023 CKD (chronic kidney disease), stage III (Chronic) Follows with [facility] ELISSA on CPAP (Chronic) CPAP + 3L O2 (O2 is continuous) HTN (hypertension) (Chronic) HLD (hyperlipidemia) (Chronic) Morbid obesity (Chronic) Depression with anxiety (Chronic) Hypothyroidism (Chronic) GERD (gastroesophageal reflux disease) (Chronic) RLS (restless legs syndrome) (Chronic) Presence of IVC filter (Chronic) 2008 Diabetes (Chronic) Fibromyalgia (Chronic) Medical History Elevated troponin UTI (urinary tract infection) VRE (vancomycin resistant enterococcus) culture positive Sepsis Sinus tachycardia Volume overload Acute hypoxemic respiratory failure Bacteremia due to Klebsiella pneumoniae Complicated urinary tract infection Ureteral stent retained Acute UTI (urinary tract infection) Following with urology Arthralgia Fatigue Left knee DJD Ambulatory dysfunction Fall Hematuria Hypoglycemia Urinary frequency Lumbago with sciatica Lower extremity pain, bilateral Major depression, recurrent Sciatica Non compliance w medication regimen Multiple falls Generalized body aches Pickwickian syndrome Obesity hypoventilation syndrome Left radial head fracture Weakness Orthostasis Hip pain, right Knee pain, right Abdominal pain Hepatosplenomegaly Hypomagnesemia CHF (congestive heart failure) HIT (heparin-induced thrombocytopenia) 2008, [facility] then life flight to [place] > "resolved" Right knee DJD (07/24/14) Bilateral flank pain Acute kidney injury superimposed on chronic kidney disease Leukocytosis Hydronephrosis History of pulmonary embolism 2008 s/p zoraida filter History of DVT (deep vein thrombosis) 2008 (during ICU [place] admission/PNA) Subclavian arterial stenosis (06/2023) Cerebrovascular duplex study 06/2023: Retrograde flow in the right vertebral artery. 50-69% proximal right subclavian artery stenosis. Antegrade flow in the left vertebral artery. Normal flow in the left subclavian artery. Hx of pulmonary edema Pickwickian syndrome Orthostasis Lumbago with sciatica Left knee DJD Hx of hydronephrosis Hyperlipemia Hypertension HIT (heparin-induced thrombocytopenia) (2008) hx - [facility] then life flight to [place] > "resolved" Deep vein thrombosis (DVT) Recurrent per records On Eliquis Initially occurred during ICU [place] admission, s/p zoraida filter [address] Right LE doppler 11/2023 showed no DVT within right LE Hepatosplenomegaly Hx of fracture radius Depression with anxiety Chronic diastolic (congestive) heart failure follos with Dr. Woodall @ [facility] Hx of carotid artery stenosis surgery - R TCAR 09/09/23 Arthralgia Ambulatory dysfunction uses cane and electric scooter Hx of Clostridium difficile infection (12/2023) during inpatient admit to [facility], treated, no current sx Hx of constipation Hx of vertigo occasional Hx: UTI (urinary tract infection) frequent Hx of fall (11/2023) last fall was November 2023 - no injuries Diabetes IDDM ELISSA on CPAP CPAP + 3L O2 (O2 is continuous) Hx of septic shock (12/2023) due to UTI - admit to [facility] Presence of IVC filter (2008) [facility], continues to be in place due to current clots behind right knee Hx pulmonary embolism (2008) s/p zoraida filter GERD (gastroesophageal reflux disease) RLS (restless legs syndrome) History of pneumonia (2008) x 8 weeks, [facility] then tx to [facility], "put me in a coma, flew me to [facility], had a trach then went to [facility] with trach" Trach removed Sep 2009 Fibromyalgia Hypothyroidism Hx of pyelonephritis (12/2023) CKD (chronic kidney disease), stage III follows [facility] Nephrology Hx of congestive heart failure takes lasix, sees Dr. Woodall Cardio Chronic hypoxemic respiratory failure O2 3-4L at all times - sees Pulm @ [facility] Transient hypotension Mitral valve stenosis Mild per cardio records (due to severe calcification) Echo 06/2023: Borderline mild mitral stenosis secondary to severe mitral annular calcification, follows [facility] cardio Dr. Woodall Cataract, bilateral Neuropathy feet On home oxygen therapy 3-4L continuous Surgical History History of tracheostomy 06/2009 (per [facility] records), secondary to acute respiratory failure in setting of PNA, reversed a few months later History of cholecystectomy History of total right knee replacement History of thyroidectomy, total 2010 History of colon resection secondary to R colon perforation, resected treated with colostomy and eventual reversal in 2008, Dr. Lerma History of colon resection (2008) secondary to R colon perforation, resected treated with colostomy and eventual reversal in 2008 Hx of tracheostomy (06/2009) (per [facility] records), secondary to acute respiratory failure in setting of PNA, reversed a few months later in 2009 Hx of cystoscopy (11/25/23) with stent placement right side due to infection History of transcarotid artery revascularization (TCAR) (08/2023) right, [facility] History of right knee joint replacement (Unknown) > 10 years Hx laparoscopic cholecystectomy Hx of thyroidectomy (2011) total Family history of reaction to anesthesia Brother/niece- PONV Brother- "wakes up violent" History of colostomy reversal (10/1997) History of tooth extraction History of arthroscopy (Unknown) left ankle , > 10 years History of incisional hernia repair Nausea and vomiting after administration of anesthetic agent History of colonoscopy Family History Father , age 74 Lung cancer Mother , age 45 Cirrhosis Social History Smoking Status: Former smoker Tobacco Type: Cigarettes Cigarettes Per Day: 1996; Second Hand Exposure: No; Do You Dip or Chew Tobacco: No; Tobacco Cessation Education Requested by Patient: No Hx Alcohol Use: No Hx Substance Use: No Preferred Language: Chinese Communication Ability: Effective Metal Handler Required: No Beliefs That Will Affect Care: None marital status: Single Current Living Situation: Alone Current Living Situation Comment: Lives by self in apartment How many Children do You have: 0 Other Information That Helps Us Care for You: No Feels Safe at Home: Yes Safety Concerns: Feels Safe At This Time Assistive Devices: Glasses, Oxygen - Continuous and Walker Review of Systems Review of Systems: All systems reviewed & are unremarkable except as noted in HPI & below Physical Exam Physical Exam: Constitutional: elderly, F, sittingin bed, vitals as above, NAD, sitting up i n bed, pleasant, conversing easily Head: Normocephalic, Atraumatic Eyes: conjunctivae normal, anicteric sclerae ENMT: external ear and nose normal, oropharynx dry membranes Neck: trachea midline, no thyromegaly normal visual inspection Respiratory: CTAB, no W/R/R, normal inspection, no accessory muscle use Cardiovascular: RRR, no murmur, b/l obese lower ext, no jaun edema, RLE > LLE< RLE pretibial erythema and warmth Chest: normal inspection of chest Abdomen: S, NT, ND, +BS x 4, no flank pain, + R perc neph tube draining adequately Musculoskeletal: no cyanosis or clubbing, extremities AROM x 4 Skin: no rashes, warm and dry normal turgor Neurologic: PERRL, EOMI, accommodation nl, no face palsy, no dysarthria CN's II-XI intact bilaterally and moves all extremities Psychiatric: A+Ox3, euthymic affect Results & Data Results & Data Vital Signs (Past 12 Hours) Vital Signs Temp Pulse Pulse Resp BP BP Pulse Ox 09/10/25 13:00 83 18 104/64 100 09/10/25 12:30 80 16 96/53 L 99 09/10/25 12:06 85 20 125/84 93 09/10/25 12:03 90 20 125/84 09/10/25 11:30 78 14 112/68 98 09/10/25 11:00 77 19 110/73 99 09/10/25 10:30 94/64 L 09/10/25 10:30 75 15 100 09/10/25 10:01 79 09/10/25 10:00 138/90 09/10/25 10:00 78 14 100 09/10/25 09:28 36.6 C 83 16 143/93 H 98 09/10/25 09:28 36.6 C 83 16 143/93 H 98 O2 Del Method 09/10/25 13:00 09/10/25 12:30 09/10/25 12:06 09/10/25 12:03 09/10/25 11:30 09/10/25 11:00 09/10/25 10:30 09/10/25 10:30 09/10/25 10:01 09/10/25 10:00 09/10/25 10:00 09/10/25 09:28 Room Air 09/10/25 09:28 Room Air Laboratory Results I have independently reviewed and interpreted patient's admitting labs including CBC, CMP, urine Diagnostic Findings Abdomen/Pelvis CT 09/10/25 10:[address] WITHOUT CONTRAST CT DOSE: 1422.96 mGy.cm HISTORY: Acute kidney injury ELSIE, perc nephro tube right TECHNIQUE: Multiaxial CT images of the abdomen and pelvis were performed without contrast. A dose lowering technique was utilized adhering to the principles of ALARA. COMPARISON STUDY: 05/03/2025 FINDINGS: Mitral annular and coronary arterial calcifications are present. Bibasilar atelectasis/scarring redemonstrated. No pneumatosis or pneumoperitoneum. The unenhanced spleen measures up to 13.67 m in length. Unremarkable pancreas, adrenal glands and liver. Cholecystectomy. Unremarkable left kidney. Percutaneous right-sided nephrostomy is in place, now with distal tip repositioned within the anterior aspect of the renal pelvis. There is improved hydronephrosis. Dilation of the right renal pelvis with adjacent peripelvic inflammatory stranding. No urolith. Unremarkable urinary bladder and uterus. Atherosclerosis of the aorta and branch vessels. Infrarenal IVC filter in place. Duodenal diverticula. No bowel obstruction or bowel wall thickening. There is moderate colonic fecal retention. Normal appendix. Diastases recti with anterior abdominal wall hernia redemonstrated containing nonobstructed loop of transverse colon. No acute fracture. IMPRESSION: 1. Repositioned right sided percutaneous nephrostomy catheter with improved hydronephrosis compared to the 05/03/2025 study. 2. No urolith. 3. No bowel obstruction or bowel wall thickening. 4. Chronic findings as above. ACT 112: Negative or not required by law. The above report was generated using voice recognition software. It may contain grammatical, syntax or spelling errors. Electronically signed by: Enrico Gilliland M.D. 09/10/2025 12:36 PM Medications Administered Medication List Sodium Chloride (Nss) 500 mls @ 80 mls/hr IV .[id number] ROBERT Stop: 09/10/25 15:59 Last Admin: 09/10/25 10:21 Dose: 80 mls/hr Documented By: TNK Discontinued Medications Acetaminophen (Ofirmev) 1,000 mg in 100 mls @ 400 mls/hr IV NOW STA Stop: 09/10/25 11:36 Last Infusion: 09/10/25 13:07 Dose: Infused Documented By: mbu Admin: 09/10/25 12:39 Dose: 400 mls/hr Documented By: ching Cefepime HCl (Maxipime 2000mg) 2,000 mg in 20 mls @ 5 mls/min IV NOW ONE Stop: 09/10/25 11:33 Last Admin: 09/10/25 12:39 Dose: 5 mls/min Documented By: ching Daptomycin 850 mg/ Syringe 17 mls @ 8.5 mls/min IV NOW ONE; Protocol Stop: 09/10/25 11:31 Last Admin: 09/10/25 12:40 Dose: 8.5 mls/min Documented By: ching ECG Additional Comments: I have independently reviewed and interpreted patient's admitting EKG which revealed: 75 NSR, qtc 435ms, first degree avb COVID-19 Results Results COVID-19 Adm Lab Results: RBC 3.54 M/uL (4.20-5.40) L 09/11/25 WBC 7.50 K/ul (4.8-10.8) 09/11/25 Hgb 11.0 g/dL (12.0-16.0) L 09/11/25 Hct 34.1 % (37.0-47.0) L 09/11/25 Plt Count 228 K/uL (130-400) 09/11/25 Neutrophils (%) (Auto) 71.0 % 09/11/25 Lymphocytes (%) (Auto) 15.9 % 09/11/25 Monocytes # (Auto) 0.57 K/uL (0.11-0.59) 09/11/25 Eosinophils # (Auto) 0.35 K/uL (0.00-0.50) 09/11/25 Immature Granulocyte % (Auto) 0.4 % 09/11/25 Neutrophils # (Auto) 5.33 K/uL (1.40-6.50) 09/11/25 Lymphocytes # (Auto) 1.19 K/uL (1.20-3.40) L 09/11/25 Monocytes # (Auto) 0.57 K/uL (0.11-0.59) 09/11/25 Eosinophils # (Auto) 0.35 K/uL (0.00-0.50) 09/11/25 Basophils # (Auto) 0.03 K/uL (0.00-0.20) 09/11/25 Immature Granulocyte # (Auto) 0.03 K/uL (0.01-0.20) 5 Na 141 mmol/L (136-145) 09/11/25 K 3.9 mmol/L (3.5-5.1) 09/11/25 Cl 106 mmol/L (98-107) 09/11/25 CO2 29 mmol/L (21-32) 09/11/25 Anion Gap 6 (3-11) 09/11/25 BUN 40 mg/dl (6-23) H 09/11/25 Creatinine 2.02 mg/dl (0.6-1.2) H 09/11/25 BUN/Creatinine Ratio 19.8 (10-20) 09/11/25 Glucose Level 115 mg/dl (70-99(Fasting)) H 09/11/25 Ca 8.6 mg/dl (8.6-10.3) 09/11/25 Total Bilirubin 0.3 mg/dl (0.2-1.0) 09/11/25 AST/SGOT 10 U/L (13-39) L 09/11/25 ALT/SGPT 7 U/L (7-52) 09/11/25 Alkaline Phosphatase 80 U/L (34-104) 09/11/25 Total Protein 6.4 gm/dl (6.0-8.3) 09/11/25 Albumin 3.3 gm/dl (3.4-5.0) L 09/11/25 Globulin 3.1 gm/dl (2.5-4.0) 09/11/25 Albumin/Globulin Ratio 1.1 (0.9-2) 09/11/25 Procalcitonin < 0.02 ng/ml (0-0.5) 09/10/25 INR 1.1 (0.9-1.1) 09/10/25 Code Status & VTE Plan Code Status FULL CODE Supervising Physician Co-Signing Physician Notes delayed entry date of service noted above Attending Addendum: Case reviewed with the advanced practitioner. I have personally performed a history and physical examination on the patient. I have reviewed the advanced practitioner's documentation on the date of service referenced in note, and I agree with, and take responsibility for the plan of care. please refer to her notes for full details patient seen and examined, records reviewed by myself as well on exam, patient seen resting in bed, sitting up comfortable states she feels fine overall denies abdominal pain, flank pain, fever/chills, nausea no chest pain, dyspnea, palpitations, dizziness no other symptoms VS noted and reviewed oriented x3 , not in distress, speaks in sentences with no effort nor accessory muscle use normal rate, regular rhythm, no murmurs clear breath sounds bilaterally non distended, soft, nontender no bipedal edema, erythema, warmth no neuro deficits all labs, imaging noted and reviewed ASSESSMENT AND PLAN> ACUTE KIDNEY INJURY ON CKD 3 R/O UTI NEPHROSTOMY TUBE IN PLACE hold torsemide IV NSS ff up urine culture empiric antibiotics Nephro consulted other diagnoses and plan of care as per advanced practitioner's notes I spent a total of 40 minutes coordinating, documenting, and providing care for this patient, excluding time spent in the performance of separately billed services or time spent by another provider/QHP. Juan Gr MD (4) CKD (chronic kidney disease), stage III Chronic kidney disease stage 3 subtype: unspecified whether 3a or 3b Qualified Code(s): N18.30 - Chronic kidney disease, stage 3 unspecified (6) Chronic respiratory failure Respiratory failure complication: hypoxia Qualified Code(s): J96.11 - Chronic respiratory failure with hypoxia (7) HTN (hypertension) Hypertension type: primary hypertension Qualified Code(s): I10 - Essential (primary) hypertension
[2025-09-10 15:50] LABS: Protein Creatinine Ratio Urine 0.5 (0-0.2); Total Protein Urine Random 34.3 mg/dl (0-11.9)
[2025-09-10] MEDS ORDERED: GLUCOSE 10 TAB/TUBE PO PRN (15:52)
[2025-09-10] MEDS ORDERED: DEXTROSE 50% 50 ML SYRINGE IV PRN (15:52)
[2025-09-10] MEDS ORDERED: CARBOHYDRATES FOR HYPOGLYCEMIA PO PRN (15:52)
[2025-09-10] MEDS ORDERED: ONDANSETRON INJ 2 MG/ML 2 ML VIAL IV PRN (15:52)
[2025-09-10] MEDS ORDERED: GLUCOSE 40% GEL 15 GM TUBE PO PRN (15:52)
[2025-09-10] MEDS ORDERED: GLUCAGON FOR INJ 1 MG VIAL SQ PRN (15:52)
[2025-09-10] MEDS ORDERED: DICYCLOMINE HCL 20 MG TAB PO PRN (15:52)
[2025-09-10] MEDS: SODIUM CHLORIDE 0.9% 1,000 ML IV SCH (16:44)
[2025-09-10] MEDS: INSULIN ASPART PER UNIT CHARGE SC SCH (18:21)
[2025-09-10] MEDS: DOCUSATE SODIUM/SENNA 50/8.6MG TAB PO SCH (20:15)
[2025-09-10] MEDS: clonazePAM 0.5 MG TAB PO SCH (20:15)
[2025-09-10] MEDS: GABAPENTIN 300 MG CAP PO SCH (20:15)
[2025-09-10] MEDS: MAGNESIUM OXIDE 400 MG TAB PO SCH (20:15)
[2025-09-10] MEDS: APIXABAN 5 MG TABLET PO SCH (20:15)
[2025-09-10] MEDS: LANTUS PER UNIT CHARGE SQ SCH (20:17)
[2025-09-10] MEDS: FLUTICASONE PROPIONATE NA SPR 16 GM BTL SCH (20:17)
[2025-09-10] MEDS ORDERED: CEFEPIME 2000MG 2,000 MG/20 ML SYR IV SCH (21:00)
[2025-09-10] MEDS ORDERED: MELATONIN 3 MG TAB PO PRN (21:00)
[2025-09-10] MEDS: ACETAMINOPHEN 325 MG TAB PO PRN (21:37)
[2025-09-10] MEDS: BACLOFEN 10 MG TAB PO PRN (21:37)
[2025-09-10] MEDS: CEFEPIME 1000MG 1,000 MG/10 ML SYR IV SCH (23:43)
[2025-09-11] MEDS: LEVOTHYROXINE SODIUM 200 MCG TABLET PO SCH (05:29)
--- NOTE | 2025-09-11 06:20 | Electrocardiogram Report ---
Test Reason : Blood Pressure : */* mmHG Vent. Rate : 75 BPM Atrial Rate : 75 BPM P-R Int : 216 ms QRS Dur : 76 ms QT Int : 390 ms P-R-T Axes : 26 7 20 degrees QTcB Int : 435 ms Sinus rhythm with 1st degree A-V block Otherwise normal ECG When compared with ECG of 25-Feb-2025 13:34, MO interval has increased Confirmed by Parish Julien ([id number]) on 09/11/2025 6:19:46 AM Referred By: Confirmed By: Parish Julien
[2025-09-11 07:38] LABS: Hematocrit (blood only) 34.1 % (37.0-47.0); Hemoglobin 11.0 g/dL (12.0-16.0); Immature Granulocytes # (auto) 0.03 K/uL (0.01-0.20); Immature Granulocytes % (auto) 0.4 %; Mean Corpuscular Hemoglobin 31.1 pg (25.0-34.0); Mean Corpuscular Volume 96.3 fL (80.0-100.0); Platelet Count 228 K/uL (130-400); RDW Standard Deviation 45.3 fL (36.4-46.3); Red Blood Count 3.54 M/uL (4.20-5.40); White Blood Count 7.50 K/ul (4.8-10.8)
--- NOTE | 2025-09-11 07:51 | Hospitalist Progress Note ---
Date of Service September 11, 2025 Assessment & Plan (1) ELSIE (acute kidney injury): (2) Complicated urinary tract infection: (3) Cellulitis of right lower extremity: (4) CKD (chronic kidney disease), stage III: (5) Chronic diastolic heart failure: (6) Chronic respiratory failure: (7) HTN (hypertension): (8) Diabetes: Plan This is a 70-year-old female with significant past medical history of T2DM, CKD stage III, diastolic CHF, right hydronephrosis status post right nephrostomy tube, right transcarotid artery revascularization in 08/2023, chronic hypoxemic respiratory failure, HTN, recurrent DVT, IVC filter, hyperlipidemia, GERD, lumbar disc disease, RLS, ELISSA with CPAP intolerance, HIT and ambulatory dysfunction who presents to ED on 09/10/2025 after being referred by her PCP. ELSIE superimposed on CKD-3 Baseline Cr around 2.0 over the last year per review in [facility] Referred by PCP for worsening Cr outpatient Admitting Cr 2.42-> 2.02 today Suspect prerenal in setting of lower BPs and torsemide use Torsemide dose reduced outpatient from 30mg to 20mg Currently holding torsemide Continue gentle fluids Avoid nephrotoxic agents as able Monitor renal function Complicated UTI due to nephrostomy tube History of VRE Follows with [place] [facility] Dr. Arriaga for management of nephrostomy tube-> due for weekly flush today per patient, communication order placed UA positive leuk esterase, WBC, bacteria CTAP shows functioning and properly placed nephrostomy tube Asymptomatic, afebrile, no leukocytosis Urine culture prelim klebsiella Continue daptomycin and cefepime for now Chronic venous insufficiency Possible RLE cellulitis RLE appears erythematous and warm to touch-> patient notes this is baseline for her On antibiotics as above T2DM, insulin dependent with polyneuropathy A1C 6.5 On Tresiba, Novolog, Mounjaro at home BSG ACHS and SSI while inpatient Recurrent DVT with IVCF Continue Eliquis PAF Rate controlled Continue Eliquis and metoprolol Hyperlipidemia Statin on hold while on daptomycin ELISSA Non compliant with CPAP Chronic hypoxic resp failure with ILD on 2L No signs of exacerbation Continue baseline O2 requirement RLS Continue ropinirole Fibromyalgia Continue duloxetine, gabapentin and tramadol MDD Continue duloxetine and clonazepam DVT Prophylaxis: On Eliquis Code Status: FULL CODE PCP: Galdino Andujar Disposition: DC to home once urine culture sensitivities are back and renal function stable Patient seen in collaboration with Dr. Crooks. Please see addendum. I spent a total of 60 minutes coordinating, documenting and providing care for this patient excluding time spent in the performance of separately billed services or time spent by another provider/QHP. Admission and Anticipated Discharge Date Admission Date: September 10, 2025 Supervising Physician Co-Signing Physician Notes Attending addendum: The patient was seen and examined in medical telemetry unit She has been weak and lethargic and denies any other significant symptoms Denies any fever no chills, no significant back pain other than usual, no nausea no vomiting On examination Sitting on incline without any acute symptoms Remains hemodynamically stable and afebrile Requiring 3 L of oxygen via nasal cannula to maintain saturation Chestdecreased breath sounds with minimal bibasilar crackles HeartS1-S2, regular Abdomenbenign with percutaneous nephrostomy tube on the right side in situ and draining Extremities trace edema bilateral Her admission labs, imaging studies and medications reviewed Probably has UTI and antibiotic has been started Complicated UTI secondary to nephrostomy tube in situawait culture and sensitivity ELSIE likely secondary to dehydration with history of CKD Likely has cellulitis of the right leg Will continue current antibiotic and await culture and sensitivity Agree with assessment plan as outlined above by Aliya SIMPSON and take the full responsibility of care in the hospital Total time taken to sink the patient, examining, reviewing chart and the labs and also medications and plan of care was [address] Haylie Crooks Subjective Patient seen resting in chair Reports she is feeling well Frustrated to be in the hospital Denies dizziness, chest pain, SOB, abdominal pain, flank pain, N/V/D Notes urine output from nephrostomy tube is adequate and normal Review of Systems Review of Systems: All systems reviewed & are unremarkable except as noted in HPI & below Physical Exam Physical Exam: General/Psych: obese, sitting up in bed, NAD, conversing easily Head: normocephalic, atraumatic Eyes: normal inspection, PERRL, conjunctivae pink Neck: normal visual inspection, trachea midline Respiratory: normal respiratory effort, lungs clear to auscultation, no wheeze/rales/rhonchi, no accessory muscle use Cardiovascular: regular rate and rhythm, no murmur/rub/gallop Extremities: no cyanosis or clubbing, normal peripheral pulses, no BLE edema Abdomen/GI: normal bowel sounds, soft, nontender, nephrostomy tube intact and drainage bag with clear urine Neurologic/MSK: A+Ox3, motor strength 5/5, moves all extremities Skin: no rashes, normal color, warm and dry, RLE with erythema and warmth Results & Data Results & Data Vital Signs (Past 12 Hours) Vital Signs Temp Pulse Pulse Resp BP BP Pulse Ox 09/11/25 07:45 36.7 C 70 20 97/57 L 96 09/11/25 07:20 83 09/11/25 03:11 36.7 C 74 20 121/58 L 98 09/10/25 23:08 36.6 C 71 18 105/59 L 98 09/10/25 22:00 72 09/10/25 21:00 O2 Del Method O2 Flow Rate 09/11/25 07:45 Nasal Cannula 3 09/11/25 07:20 09/11/25 03:11 Nasal Cannula 3 09/10/25 23:08 Nasal Cannula 3 09/10/25 22:00 09/10/25 21:00 Nasal Cannula 3 Laboratory Results Short CBC 09/11/25 Range/Units 07:07 WBC 7.50 (4.8-10.8) K/ul Hgb 11.0 L (12.0-16.0) g/dL Hct 34.1 L (37.0-47.0) % Plt Count 228 (130-400) K/uL BMP 09/11/25 07:07 Sodium 141 Potassium 3.9 Chloride 106 Carbon Dioxide 29 BUN 40 H Creatinine 2.02 H D Glucose 115 H Calcium 8.6 Liver Function 09/11/25 Range/Units 07:07 Total Bilirubin 0.3 (0.2-1.0) mg/dl AST 10 L (13-39) U/L ALT 7 (7-52) U/L Alkaline Phosphatase 80 (34-104) U/L Albumin 3.3 L (3.4-5.0) gm/dl I have independently reviewed and interpreted patient's labs including CBC, CMP, Mag, A1C Medications Administered Current Inpatient Medications Acetaminophen (Acetaminophen 325 Mg Tab) 650 mg PO Q4H PRN PRN Reason: Pain or Fever Stop: 10/10/25 15:51 Last Admin: 09/11/25 12:42 Dose: 650 mg Apixaban (Apixaban 5 Mg Tablet) 5 mg PO BID [facility] Stop: 10/10/25 20:59 Last Admin: 09/11/25 08:56 Dose: 5 mg Clonazepam (Clonazepam 0.5 Mg Tab) 0.5 mg PO TID [facility] Stop: 10/10/25 20:59 Last Admin: 09/11/25 09:22 Dose: 0.5 mg Clopidogrel Bisulfate (Clopidogrel Bisulfate 75 Mg Tab) 75 mg PO QAM [facility] Stop: 10/11/25 08:59 Last Admin: 09/11/25 08:57 Dose: 75 mg Cyanocobalamin (Cyanocobalamin (B-12) 500 Mcg Tablet) 500 mcg PO DAILY [facility] Stop: 10/11/25 08:59 Last Admin: 09/11/25 08:56 Dose: 500 mcg Dextrose (Dextrose 50% 50 Ml Syringe) 25 - 50 ml IV UD PRN; Protocol PRN Reason: Hypoglycemia Protocol Stop: 10/10/25 15:51 Dicyclomine HCl (Dicyclomine Hcl 20 Mg Tab) 20 mg PO QID PRN PRN Reason: ABD CRAMPING Stop: 10/10/25 15:51 Duloxetine HCl (Duloxetine Hcl 60 Mg Cap) 60 mg PO [facility] Stop: 10/11/25 08:59 Last Admin: 09/11/25 08:56 Dose: 60 mg Fluticasone Propionate (Fluticasone Propionate Na Spr 16 Gm Btl) 2 sprays NA [facility] Stop: 10/10/25 20:59 Last Admin: 09/11/25 08:57 Dose: 2 sprays Gabapentin (Gabapentin 300 Mg Cap) 300 mg PO [facility] Stop: 10/10/25 20:59 Last Admin: 09/11/25 08:57 Dose: 300 mg Glucagon (Glucagon For Inj 1 Mg Vial) 1 mg SQ UD PRN; Protocol PRN Reason: Hypoglycemia Protocol Stop: 10/10/25 15:51 Glucose (Glucose 40% Gel 15 Gm Tube) 15 - 30 gm PO UD PRN; Protocol PRN Reason: Hypoglycemia Protocol Stop: 10/10/25 15:51 Glucose (Glucose 10 Tab/Tube) 4 - 8 tab PO UD PRN; Protocol PRN Reason: Hypoglycemia Protocol Stop: 10/10/25 15:51 Sodium Chloride (Nss) 1,000 mls @ 80 mls/hr IV .[id number] [facility] Stop: 09/11/25 16:51 Last Admin: 09/11/25 05:29 Dose: 80 mls/hr Cefepime HCl (Maxipime 2000mg) 1,000 mg in 10 mls @ 5 mls/min IV Q12H [facility] Stop: 09/20/25 23:29 Last Admin: 09/11/25 11:42 Dose: 5 mls/min Daptomycin 600 mg/ Syringe 12 mls @ 6 mls/min IV Q24H [facility]; Protocol Stop: 09/21/25 15:59 Insulin Aspart (Insulin Aspart Per Unit Charge) 0 units SC ACHS [facility] Stop: 10/10/25 16:29 Last Admin: 09/11/25 12:38 Dose: 3 units Insulin Glargine (Lantus Per Unit Charge) 0 - 10 units SQ HS [facility] Stop: 10/10/25 20:59 Last Admin: 09/10/25 20:17 Dose: 5 units Lactobacillus Acidophilus (Advanced Probiotic 625 Mg Capsule) 1,250 mg PO DAILY [facility] Stop: 10/11/25 08:59 Last Admin: 09/11/25 08:56 Dose: 1,250 mg Levothyroxine Sodium (Levothyroxine Sodium 200 Mcg Tablet) 200 mcg PO DAILYBB [facility] Stop: 10/11/25 06:29 Last Admin: 09/11/25 05:29 Dose: 200 mcg Magnesium Oxide (Magnesium Oxide 400 Mg Tab) 400 mg PO BID [facility] Stop: 10/10/25 20:59 Last Admin: 09/11/25 08:56 Dose: 400 mg Melatonin (Melatonin 3 Mg Tab) 6 mg PO HS PRN PRN Reason: Sleep Stop: 10/10/25 20:59 Metoprolol Succinate (Metoprolol Succ 25mg Ext Rel Tab) 37.5 mg PO QAM [facility] Stop: 10/11/25 08:59 Last Admin: 09/11/25 08:59 Dose: 37.5 mg Miscellaneous (Carbohydrates For Hypoglycemia ) 15 - 30 gm PO UD PRN PRN Reason: Hypoglycemia Protocol Stop: 10/10/25 15:51 Ondansetron HCl (Ondansetron Inj 2 Mg/Ml 2 Ml Vial) 4 mg IV Q6H PRN PRN Reason: Nausea Stop: 10/10/25 15:51 Oxycodone HCl (Oxycodone Hcl Ir 5 Mg Tab (Immediate Release)) 5 mg PO Q4H PRN PRN Reason: Pain Stop: 09/24/25 23:17 Last Admin: 09/11/25 09:32 Dose: 5 mg Pantoprazole Sodium (Pantoprazole 40 Mg Tab) 40 mg PO QAM [facility] Stop: 10/11/25 08:59 Last Admin: 09/11/25 08:56 Dose: 40 mg Polyethylene Glycol (Polyethylene (Miralax) 17 Gm Pack) 17 gm PO DAILY PRN PRN Reason: Constipation Stop: 10/10/25 15:51 Last Admin: 09/11/25 09:32 Dose: 17 gm Ropinirole HCl (Ropinirole Hcl 2 Mg Tablet) 2 mg PO HS [facility] Stop: 10/10/25 20:59 Last Admin: 09/10/25 20:16 Dose: 2 mg Rosuvastatin Calcium (Rosuvastatin Calcium 5 Mg Tab) 5 mg PO QAM [facility] Stop: 10/11/25 08:59 Last Admin: 09/11/25 08:56 Dose: 5 mg Senna/Docusate Sodium (Docusate Sodium/Senna 50/8.6mg Tab) 1 tab PO BID [facility] Stop: 10/10/25 20:59 Last Admin: 09/11/25 09:22 Dose: 1 tab Trazodone HCl (Trazodone Hcl 50 Mg Tab) 50 mg PO HS [facility] Stop: 10/10/25 20:59 Last Admin: 09/10/25 20:16 Dose: 50 mg Vitamin D (Cholecalciferol 25 Mcg (1000 Units) Tab) 25 mcg PO QAM [facility] Stop: 10/11/25 08:59 Last Admin: 09/11/25 08:56 Dose: 25 mcg (4) CKD (chronic kidney disease), stage III Chronic kidney disease stage 3 subtype: unspecified whether 3a or 3b Qualified Code(s): N18.30 - Chronic kidney disease, stage 3 unspecified (6) Chronic respiratory failure Respiratory failure complication: hypoxia Qualified Code(s): J96.11 - Chronic respiratory failure with hypoxia (7) HTN (hypertension) Hypertension type: primary hypertension Qualified Code(s): I10 - Essential (primary) hypertension
[2025-09-11 08:01] LABS: Alanine Aminotransferase 7.0 U/L (7-52); Albumin Globulin Ratio 1.1 (0.9-2); Albumin Level 3.3 gm/dl (3.4-5.0); Alkaline Phosphatase 80.0 U/L (34-104); Anion Gap 6.0 (3-11); Bilirubin,Total 0.3 mg/dl (0.2-1.0); Blood Urea Nitrogen 40.0 mg/dl (6-23); Calcium 8.6 mg/dl (8.6-10.3); Carbon Dioxide 29.0 mmol/L (21-32); Chloride 106.0 mmol/L (98-107); Creatinine Clr Calc Pharmacy 32.3 ml/min; Globulin 3.1 gm/dl (2.5-4.0); Glucose 115.0 mg/dl (70-99(Fasting)); Magnesium 2.1 mg/dl (1.7-2.4); Potassium 3.9 mmol/L (3.5-5.1); Sodium 141.0 mmol/L (136-145); Total Protein 6.4 gm/dl (6.0-8.3)
[2025-09-11 08:02] LABS: Hemoglobin A1C 6.5 % (4.5-5.6)
[2025-09-11] MEDS: CYANOCOBALAMIN (B-12) 500 MCG TABLET PO SCH (08:56)
[2025-09-11] MEDS: ROSUVASTATIN CALCIUM 5 MG TAB PO SCH (08:56)
[2025-09-11] MEDS: ADVANCED PROBIOTIC 625 MG CAPSULE PO SCH (08:56)
[2025-09-11] MEDS: CHOLECALCIFEROL 25 MCG (1000 UNITS) TAB PO SCH (08:56)
[2025-09-11] MEDS: CLOPIDOGREL BISULFATE 75 MG TAB PO SCH (08:57)
[2025-09-11] MEDS: METOPROLOL SUCC 25MG EXT REL TAB PO SCH (08:59)
[2025-09-11] MEDS: POLYETHYLENE (MIRALAX) 17 GM PACK PO PRN (09:32)
[2025-09-11] MEDS: DAPTOmycin 600 MG in SYRINGE 0 ML IV SCH (15:31)
[2025-09-12 08:49] LABS: Hematocrit (blood only) 34.4 % (37.0-47.0); Hemoglobin 11.0 g/dL (12.0-16.0); Mean Corpuscular Hemoglobin 30.6 pg (25.0-34.0); Mean Corpuscular Volume 95.8 fL (80.0-100.0); Platelet Count 247 K/uL (130-400); RDW Standard Deviation 44.8 fL (36.4-46.3); Red Blood Count 3.59 M/uL (4.20-5.40); White Blood Count 9.11 K/ul (4.8-10.8)
[2025-09-12 09:10] LABS: Anion Gap 6.0 (3-11); Blood Urea Nitrogen 31.0 mg/dl (6-23); Calcium 9.0 mg/dl (8.6-10.3); Carbon Dioxide 27.0 mmol/L (21-32); Chloride 106.0 mmol/L (98-107); Creatinine Clr Calc Pharmacy 37.1 ml/min; Glucose 141.0 mg/dl (70-99(Fasting)); Potassium 4.0 mmol/L (3.5-5.1); Sodium 139.0 mmol/L (136-145)
[2025-09-12 09:13] LABS: Creatinine Clr Calc Pharmacy 36.1 ml/min
[2025-09-12] MEDS: ERTAPENEM 1000MG 1,000 MG/10 ML SYR IV SCH (09:38)
[2025-09-12] MEDS: MAGNESIUM HYDROXIDE SUSP 30 ML UDC PO ONE (09:38)
--- NOTE | 2025-09-12 11:29 | Hospitalist Progress Note ---
Date of Service September 12, 2025 Assessment & Plan (1) ELSIE (acute kidney injury): (2) Complicated urinary tract infection: (3) Cellulitis of right lower extremity: (4) CKD (chronic kidney disease), stage III: (5) Chronic diastolic heart failure: (6) Chronic respiratory failure: (7) HTN (hypertension): (8) Diabetes: Plan This is a 70-year-old female with significant past medical history of T2DM, CKD stage III, diastolic CHF, right hydronephrosis status post right nephrostomy tube, right transcarotid artery revascularization in 08/2023, chronic hypoxemic respiratory failure, HTN, recurrent DVT, IVC filter, hyperlipidemia, GERD, lumbar disc disease, RLS, ELISSA with CPAP intolerance, HIT and ambulatory dysfunction who presents to ED on 09/10/2025 after being referred by her PCP. ELSIE superimposed on CKD-3 Baseline Cr around 1.4-1.5 over the last year per review in [facility] Referred by PCP for worsening Cr outpatient Admitting Cr 2.42-> 2.02-->1.7 Suspect prerenal in setting of lower BPs and torsemide use Torsemide dose reduced outpatient from 30mg to 20mg Currently holding torsemide s/p IVF, renal function improving will continue to monitor Avoid nephrotoxic agents as able Monitor renal function Complicated UTI due to nephrostomy tube ESBL Klebsiella History of VRE Follows with [place] [facility] Dr. Arriaga for management of nephrostomy tube-> due for weekly flush today per patient, communication order placed UA positive leuk esterase, WBC, bacteria CTAP shows functioning and properly placed nephrostomy tube Asymptomatic, afebrile, no leukocytosis Urine culture Klebsiella ESBL Transition to IV ertapenem and consult ID to determine antibiotics at discharge Chronic venous insufficiency Possible RLE cellulitis RLE erythema has improved from admission, now back to baseline On antibiotics as above T2DM, insulin dependent with polyneuropathy A1C 6.5 On Tresiba, Novolog, Mounjaro at home BSG ACHS and SSI while inpatient Recurrent DVT with IVCF Continue Eliquis PAF Rate controlled Continue Eliquis and metoprolol Hyperlipidemia continue statin ELISSA Non compliant with CPAP Chronic hypoxic resp failure with ILD on 2L No signs of exacerbation Continue baseline O2 requirement RLS Continue ropinirole Fibromyalgia Continue duloxetine, gabapentin and tramadol MDD Continue duloxetine and clonazepam DVT Prophylaxis: On Eliquis Code Status: FULL CODE PCP: Galdino Andujar Disposition: await ID consult to determine antibiotic at discharge Patient seen in collaboration with Dr. Crooks. Please see addendum. I spent a total of 45 minutes coordinating, documenting and providing care for this patient excluding time spent in the performance of separately billed services or time spent by another provider/QHP. Admission and Anticipated Discharge Date Admission Date: September 10, 2025 Supervising Physician Co-Signing Physician Notes Attending addendum: The patient was seen and examined in medical telemetry unit She has been weak and lethargic and denies any other significant symptoms Denies any fever no chills, no significant back pain other than usual, no nausea no vomiting On examination Sitting on incline without any acute symptoms Remains hemodynamically stable and afebrile Requiring 3 L of oxygen via nasal cannula to maintain saturation Chestdecreased breath sounds with minimal bibasilar crackles HeartS1-S2, regular Abdomenbenign with percutaneous nephrostomy tube on the right side in situ and draining Extremities trace edema bilateral Her admission labs, imaging studies and medications reviewed Probably has UTI and antibiotic has been started Complicated UTI secondary to nephrostomy tube in situawait culture and sensitivity ELSIE likely secondary to dehydration with history of CKD Likely has cellulitis of the right leg Will continue current antibiotic and await culture and sensitivity Agree with assessment plan as outlined above by Aliya SIMPSON and take the full responsibility of care in the hospital Total time taken to sink the patient, examining, reviewing chart and the labs and also medications and plan of care was [address] Haylie Crooks 09/12/2025 The patient was seen and examined in medical telemetry unit She has been feeling much better denies any significant symptoms Has had evaluation by ID and recommended not to give any antibiotic and observe off antibiotic She remains hemodynamically stable and physical examination remained unremarkable Her labs and medications reviewed and plan of care as above Likely discharge tomorrow Agree with assessment and plan as outlined above by Lisette Peralta PA-C and take the full responsibility care in the hospital Total time taken to document all of the above was [address] Haylie Crooks Subjective Pt sitting in bedside chair. Overall feels well. Denies f/c/s, chest pain, sob, n/v. She is eating well. She feels constipated and asked for milk of mag. Review of Systems Review of Systems: All systems reviewed & are unremarkable except as noted in HPI & below Physical Exam Physical Exam: Gen: WD/WN, NAD, A&O x3 HEENT: Normocephalic, atraumatic, conjunctivae moist, sclerae anicteric, mucous membranes moist. Lung: Clear to Auscultation bilaterally, no wheezes/rales/rhonchi Heart: Regular rate, regular rhythm, no murmurs, rubs, or gallops Abdomen: Soft, NT, ND +BS x 4 Extremities: No edema, rle venous insuff, less red Skin: Warm, no rash, negative turgor. Results & Data Results & Data Vital Signs (Past 12 Hours) Vital Signs Temp Pulse Pulse Pulse Resp BP BP 09/12/25 11:02 36.9 C 71 18 134/72 09/12/25 08:07 09/12/25 07:48 37.1 C 80 18 106/60 09/12/25 05:24 78 09/12/25 04:25 36.5 C 81 18 126/55 L 09/11/25 23:43 36.5 C 75 18 121/59 L Pulse Ox O2 Del Method O2 Flow Rate 09/12/25 11:02 98 Nasal Cannula 3 09/12/25 08:07 Nasal Cannula 3 09/12/25 07:48 99 Nasal Cannula 3 09/12/25 05:24 09/12/25 04:25 99 Nasal Cannula 3 09/11/25 23:43 100 Nasal Cannula 3 Laboratory Results I have independently reviewed and interpreted patient's cbc, bmp Medications Administered Current Inpatient Medications Acetaminophen (Acetaminophen 325 Mg Tab) 650 mg PO Q4H PRN PRN Reason: Pain or Fever Stop: 10/10/25 15:51 Last Admin: 09/12/25 03:12 Dose: 650 mg Apixaban (Apixaban 5 Mg Tablet) 5 mg PO BID [facility] Stop: 10/10/25 20:59 Last Admin: 09/12/25 07:58 Dose: 5 mg Clonazepam (Clonazepam 0.5 Mg Tab) 0.5 mg PO TID [facility] Stop: 10/10/25 20:59 Last Admin: 09/12/25 07:58 Dose: 0.5 mg Clopidogrel Bisulfate (Clopidogrel Bisulfate 75 Mg Tab) 75 mg PO QAM [facility] Stop: 10/11/25 08:59 Last Admin: 09/12/25 07:59 Dose: 75 mg Cyanocobalamin (Cyanocobalamin (B-12) 500 Mcg Tablet) 500 mcg PO DAILY [facility] Stop: 10/11/25 08:59 Last Admin: 09/12/25 07:59 Dose: 500 mcg Dextrose (Dextrose 50% 50 Ml Syringe) 25 - 50 ml IV UD PRN; Protocol PRN Reason: Hypoglycemia Protocol Stop: 10/10/25 15:51 Dicyclomine HCl (Dicyclomine Hcl 20 Mg Tab) 20 mg PO QID PRN PRN Reason: ABD CRAMPING Stop: 10/10/25 15:51 Duloxetine HCl (Duloxetine Hcl 60 Mg Cap) 60 mg PO QAM [facility] Stop: 10/11/25 08:59 Last Admin: 09/12/25 08:00 Dose: 60 mg Fluticasone Propionate (Fluticasone Propionate Na Spr 16 Gm Btl) 2 sprays NA [facility] Stop: 10/10/25 20:59 Last Admin: 09/12/25 08:00 Dose: 2 sprays Gabapentin (Gabapentin 300 Mg Cap) 300 mg PO [facility] Stop: 10/10/25 20:59 Last Admin: 09/12/25 07:59 Dose: 300 mg Glucagon (Glucagon For Inj 1 Mg Vial) 1 mg SQ UD PRN; Protocol PRN Reason: Hypoglycemia Protocol Stop: 10/10/25 15:51 Glucose (Glucose 40% Gel 15 Gm Tube) 15 - 30 gm PO UD PRN; Protocol PRN Reason: Hypoglycemia Protocol Stop: 10/10/25 15:51 Glucose (Glucose 10 Tab/Tube) 4 - 8 tab PO UD PRN; Protocol PRN Reason: Hypoglycemia Protocol Stop: 10/10/25 15:51 Ertapenem (Invanz 1000mg) 1,000 mg in 10 mls @ 2 mls/min IV Q24H [facility] Stop: 09/22/25 08:59 Last Admin: 09/12/25 09:38 Dose: 2 mls/min Insulin Aspart (Insulin Aspart Per Unit Charge) 0 units SC ACHS [facility] Stop: 10/10/25 16:29 Last Admin: 09/12/25 09:07 Dose: Not Given Insulin Glargine (Lantus Per Unit Charge) 0 - 10 units SQ HS [facility] Stop: 10/10/25 20:59 Last Admin: 09/11/25 21:07 Dose: 5 units Lactobacillus Acidophilus (Advanced Probiotic 625 Mg Capsule) 1,250 mg PO DAILY [facility] Stop: 10/11/25 08:59 Last Admin: 09/12/25 08:00 Dose: 1,250 mg Levothyroxine Sodium (Levothyroxine Sodium 200 Mcg Tablet) 200 mcg PO DAILYBB [facility] Stop: 10/11/25 06:29 Last Admin: 09/12/25 05:07 Dose: 200 mcg Magnesium Oxide (Magnesium Oxide 400 Mg Tab) 400 mg PO BID [facility] Stop: 10/10/25 20:59 Last Admin: 09/12/25 07:59 Dose: 400 mg Melatonin (Melatonin 3 Mg Tab) 6 mg PO HS PRN PRN Reason: Sleep Stop: 10/10/25 20:59 Metoprolol Succinate (Metoprolol Succ 25mg Ext Rel Tab) 37.5 mg PO QAM [facility] Stop: 10/11/25 08:59 Last Admin: 09/12/25 07:59 Dose: 37.5 mg Miscellaneous (Carbohydrates For Hypoglycemia ) 15 - 30 gm PO UD PRN PRN Reason: Hypoglycemia Protocol Stop: 10/10/25 15:51 Ondansetron HCl (Ondansetron Inj 2 Mg/Ml 2 Ml Vial) 4 mg IV Q6H PRN PRN Reason: Nausea Stop: 10/10/25 15:51 Oxycodone HCl (Oxycodone Hcl Ir 5 Mg Tab (Immediate Release)) 5 mg PO Q4H PRN PRN Reason: Pain Stop: 09/24/25 23:17 Last Admin: 09/12/25 05:07 Dose: 5 mg Pantoprazole Sodium (Pantoprazole 40 Mg Tab) 40 mg PO QAM [facility] Stop: 10/11/25 08:59 Last Admin: 09/12/25 07:59 Dose: 40 mg Polyethylene Glycol (Polyethylene (Miralax) 17 Gm Pack) 17 gm PO DAILY PRN PRN Reason: Constipation Stop: 10/10/25 15:51 Last Admin: 09/11/25 09:32 Dose: 17 gm Ropinirole HCl (Ropinirole Hcl 2 Mg Tablet) 2 mg PO HS [facility] Stop: 10/10/25 20:59 Last Admin: 09/11/25 21:06 Dose: 2 mg Rosuvastatin Calcium (Rosuvastatin Calcium 5 Mg Tab) 5 mg PO QAM [facility] Stop: 10/11/25 08:59 Last Admin: 09/12/25 08:00 Dose: 5 mg Senna/Docusate Sodium (Docusate Sodium/Senna 50/8.6mg Tab) 1 tab PO BID [facility] Stop: 10/10/25 20:59 Last Admin: 09/12/25 08:00 Dose: Not Given Trazodone HCl (Trazodone Hcl 50 Mg Tab) 50 mg PO HS [facility] Stop: 10/10/25 20:59 Last Admin: 09/11/25 21:06 Dose: 50 mg Vitamin D (Cholecalciferol 25 Mcg (1000 Units) Tab) [facility] [place] Stop: 10/11/25 08:59 Last Admin: 09/12/25 08:00 Dose: 25 mcg (4) CKD (chronic kidney disease), stage III Chronic kidney disease stage 3 subtype: unspecified whether 3a or 3b Qualified Code(s): N18.30 - Chronic kidney disease, stage 3 unspecified (6) Chronic respiratory failure Respiratory failure complication: hypoxia Qualified Code(s): J96.11 - Chronic respiratory failure with hypoxia (7) HTN (hypertension) Hypertension type: primary hypertension Qualified Code(s): I10 - Essential (primary) hypertension
[2025-09-12] MEDS ORDERED: DAPTOmycin 600 MG in SYRINGE 0 ML IV SCH (12:00)
--- NOTE | 2025-09-12 14:30 | Infectious Disease Consult ---
Date of Service September 12, 2025 Telehealth Information I performed this visit using a real-time telehealth connection between my location and the patients location ([facility]). After connecting through interactive tele-video, patient was identified by name and date of and/or wristband check.Patient (or authorized healthcare player services representative) was informed that this was a telemedicine visit and it was being conducted confidentially over secure lines. My office door was closed and no one else was present in the room with me.Patient (or authorized healthcare player services representative) provided consent to proceed with the visit, expressed an understanding of privacy and security of the telemedicine visit, and gave permission to have a hospital player services representative in the room in order to assist with the visit and to conduct portions of the visit, as needed. I informed the patient (or authorized healthcare player services representative) that I reviewed their record and presented the opportunity for them to ask any questions regarding the visit today. The patient agreed to participate. Assessment & Plan (1) Asymptomatic bacteriuria: (2) ELSIE (acute kidney injury): (3) Nephrostomy status: (4) Chronic hypoxic respiratory failure, on home oxygen therapy: Plan I have no concern for UTI at this point. Please discontinue ertapenem and monitor off antibiotics. ID will sign off for now. History of Present Illness History of Present Illness Ms. Camp is a 70-year-old woman with past medical history of type 2 diabetes, HTN, CKD stage 3, diastolic congestive heart failure, obstructive nephropathy status post right nephrostomy tube, recurrent DVT/IVC filter, ELISSA with CPAP, and interstitial lung disease with chronic hypoxic respiratory failure (on 2 L of oxygen via nasal cannula at baseline at home) who was admitted to [facility] on 09/10/2025 after being referred by her PCP because of elevated creatinine which is believed to be possibly secondary to diuretics. On presentation, she was afebrile and rest of vitals were within normal limits. Initial workup did not show any leukocytosis, elevated creatinine of 2.4 (basel ine 1.7-1.9), UA showing 3+ bacteria with more than [address] abdomen pelvis showed repositioned right-sided percutaneous nephrostomy tube with improved hydronephrosis and no other pathologies. ID team was consulted for further recommendations and to help guide antibiotics especially with concern for UTI. Allergies Allergy/AdvReac Type Severity Reaction Status Date / Time morphine Allergy Severe Swelling, Verified 08/13/25 15:08 "Violent reaction- almost " pollen extracts Allergy Intermediate HAYFEVER Verified 08/13/25 15:08 SYMPTOMS heparin AdvReac Severe HEPARIN Verified 08/13/25 15:08 INDUCED THROMBOCYTOPENIA bupropion [From Wellbutrin] AdvReac Intermediate Recurrent Verified 08/13/25 15:08 falls as per patient codeine AdvReac Intermediate Hallucinati Verified 08/13/25 15:08 ons dapagliflozin [From Farxiga] AdvReac Intermediate Yeast Verified 08/13/25 15:08 infections empagliflozin AdvReac Intermediate Yeast Verified 08/13/25 15:08 [From Jardiance] infections hydrocodone [From Vicodin] AdvReac Intermediate Drowsy Verified 08/13/25 15:08 tetanus toxoid, adsorbed AdvReac Intermediate Passed Verified 08/13/25 15:08 out, "got sick" as child Home Medications Medication Instructions Recorded Confirmed Type clonazepam 0.5 mg tablet 0.5 mg PO TID 09/20/23 09/10/25 History magnesium oxide 400 mg (241.3 mg 400 mg PO BID 09/20/23 09/10/25 History magnesium) tablet ropinirole 2 mg tablet 2 mg PO HS 09/20/23 09/10/25 History sennosides 8.6 mg-docusate sodium 1 tab PO BID 09/20/23 09/10/25 History 50 mg tablet (Senna-Time S) tramadol 50 mg tablet 50 mg PO Q8 PRN Pain 09/20/23 09/10/25 History levothyroxine 200 mcg tablet 200 mcg PO DAILYBB #30 tabs 12/07/23 09/10/25 Rx cholecalciferol (vitamin D3) 25 25 mcg PO QAM 01/16/24 09/10/25 History mcg (1,000 unit) tablet clopidogrel 75 mg tablet 75 mg PO QAM 01/16/24 09/10/25 History duloxetine 60 mg capsule,delayed 60 mg PO QAM 12/09/24 09/10/25 History release fluticasone propionate 50 2 spray intranasal AMHS 12/09/24 09/10/25 History mcg/actuation nasal spray,suspension gabapentin 300 mg capsule 300 mg PO AMHS 12/09/24 09/10/25 History insulin aspart U-100 100 unit/mL See Rx Instructions .Route .COMPLEX 12/09/24 09/10/25 History (3 mL) subcutaneous pen (Novolog FlexPen U-100 Insulin aspart) insulin degludec 100 unit/mL (3 15 unit subcut QPM 12/09/24 09/10/25 History mL) subcutaneous pen (Tresiba FlexTouch U-100 insulin) rosuvastatin 5 mg tablet 5 mg PO QAM 12/09/24 09/10/25 History trazodone 50 mg tablet 50 mg PO HS 12/09/24 09/10/25 History apixaban 5 mg tablet (Eliquis) 5 mg PO BID #60 tabs 01/31/25 09/10/25 Rx metoprolol succinate 25 mg 37.5 mg (1.5 x 25 mg) PO QAM #30 01/31/25 09/10/25 Rx tablet,extended release 24 hr tabs tirzepatide 7.5 mg/0.5 mL 7.5 mg subcut WE 02/25/25 09/10/25 History subcutaneous pen injector (Kevan) acetaminophen 500 mg tablet 500 - 1,000 mg PO Q8H PRN Pain 04/07/25 09/10/25 History (Tylenol Extra Strength) albuterol sulfate 2.5 mg/3 mL 2.5 mg inhalation DIRECTED PRN 04/07/25 09/10/25 History (0.083 %) solution for nebulization Shortness Of Breath Or Wheezing cyanocobalamin (vitamin B-12) 500 500 mcg PO DAILY 04/07/25 09/10/25 History mcg tablet (Vitamin B-12) pantoprazole 20 mg tablet,delayed 20 mg PO QAM 04/07/25 09/10/25 History release potassium chloride 10 mEq 10 meq PO BID 04/07/25 09/10/25 History capsule,extended release dicyclomine 20 mg tablet 20 mg PO QID PRN ABD CRAMPING 05/03/25 09/10/25 History ondansetron HCl 4 mg tablet 4 mg PO Q6H PRN NAUSEA/VOMITING 05/03/25 09/10/25 History torsemide 20 mg tablet 30 mg PO QAM 05/03/25 09/10/25 History baclofen 5 mg tablet 5 mg PO BID PRN Muscle Spasm 08/13/25 09/10/25 History Patient History Medical History Elevated troponin UTI (urinary tract infection) VRE (vancomycin resistant enterococcus) culture positive Sepsis Sinus tachycardia Volume overload Acute hypoxemic respiratory failure Bacteremia due to Klebsiella pneumoniae Complicated urinary tract infection Ureteral stent retained Acute UTI (urinary tract infection) Following with urology Arthralgia Fatigue Left knee DJD Ambulatory dysfunction Fall Hematuria Hypoglycemia Urinary frequency Lumbago with sciatica Lower extremity pain, bilateral Major depression, recurrent Sciatica Non compliance w medication regimen Multiple falls Generalized body aches Pickwickian syndrome Obesity hypoventilation syndrome Left radial head fracture Weakness Orthostasis Hip pain, right Knee pain, right Abdominal pain Hepatosplenomegaly Hypomagnesemia CHF (congestive heart failure) HIT (heparin-induced thrombocytopenia) 2008, [facility] then life flight to [place] > "resolved" Right knee DJD (07/24/14) Bilateral flank pain Acute kidney injury superimposed on chronic kidney disease Leukocytosis Hydronephrosis History of pulmonary embolism 2008 s/p zoraida filter History of DVT (deep vein thrombosis) 2008 (during ICU [place] admission/PNA) Subclavian arterial stenosis (06/2023) Cerebrovascular duplex study 06/2023: Retrograde flow in the right vertebral artery. 50-69% proximal right subclavian artery stenosis. Antegrade flow in the left vertebral artery. Normal flow in the left subclavian artery. Hx of pulmonary edema Pickwickian syndrome Orthostasis Lumbago with sciatica Left knee DJD Hx of hydronephrosis Hyperlipemia Hypertension HIT (heparin-induced thrombocytopenia) (2008) hx - [facility] then life flight to [place] > "resolved" Deep vein thrombosis (DVT) Recurrent per records On Eliquis Initially occurred during ICU [place] admission, s/p zoraida filter [address] Right LE doppler 11/2023 showed no DVT within right LE Hepatosplenomegaly Hx of fracture radius Depression with anxiety Chronic diastolic (congestive) heart failure follos with Dr. Woodall @ [facility] Hx of carotid artery stenosis surgery - R TCAR 09/09/23 Arthralgia Ambulatory dysfunction uses cane and electric scooter Hx of Clostridium difficile infection (12/2023) during inpatient admit to [facility], treated, no current sx Hx of constipation Hx of vertigo occasional Hx: UTI (urinary tract infection) frequent Hx of fall (11/2023) last fall was November 2023 - no injuries Diabetes IDDM ELISSA on CPAP CPAP + 3L O2 (O2 is continuous) Hx of septic shock (12/2023) due to UTI - admit to [facility] Presence of IVC filter (2008) [facility], continues to be in place due to current clots behind right knee Hx pulmonary embolism (2008) s/p zoraida filter GERD (gastroesophageal reflux disease) RLS (restless legs syndrome) History of pneumonia (2008) x 8 weeks, [facility] then tx to [facility], "put me in a coma, flew me to [facility], had a trach then went to snf with trach" Trach removed Sep 2009 Fibromyalgia Hypothyroidism Hx of pyelonephritis (12/2023) CKD (chronic kidney disease), stage III follows [facility] Nephrology Hx of congestive heart failure takes lasix, sees Dr. Jose C Garcia Chronic hypoxemic respiratory failure O2 3-4L at all times - sees Pulm @ [facility] Transient hypotension Mitral valve stenosis Mild per cardio records (due to severe calcification) Echo 06/2023: Borderline mild mitral stenosis secondary to severe mitral annular calcification, follows [facility] cardio Dr. Woodall Cataract, bilateral Neuropathy feet On home oxygen therapy 3-4L continuous Surgical History History of tracheostomy 06/2009 (per [facility] records), secondary to acute respiratory failure in setting of PNA, reversed a few months later History of cholecystectomy History of total right knee replacement History of thyroidectomy, total 2010 History of colon resection secondary to R colon perforation, resected treated with colostomy and eventual reversal in 2008, Dr. Lerma History of colon resection (2008) secondary to R colon perforation, resected treated with colostomy and eventual reversal in 2008 Hx of tracheostomy (06/2009) (per [facility] records), secondary to acute respiratory failure in setting of PNA, reversed a few months later in 2009 Hx of cystoscopy (11/25/23) with stent placement right side due to infection History of transcarotid artery revascularization (TCAR) (08/2023) right, [facility] History of right knee joint replacement (Unknown) > 10 years Hx laparoscopic cholecystectomy Hx of thyroidectomy (2011) total Family history of reaction to anesthesia Brother/niece- PONV Brother- "wakes up violent" History of colostomy reversal (10/1997) History of tooth extraction History of arthroscopy (Unknown) left ankle , > 10 years History of incisional hernia repair Nausea and vomiting after administration of anesthetic agent History of colonoscopy Family History Father , age 74 Lung cancer Mother , age 45 Cirrhosis Social History Smoking Status: Former smoker Tobacco Type: Cigarettes Cigarettes Per Day: 1996; Second Hand Exposure: No; Do You Dip or Chew Tobacco: No; Tobacco Cessation Education Requested by Patient: No Hx Alcohol Use: No Hx Substance Use: No Preferred Language: Uzbek Communication Ability: Effective Printing Sales 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 Required: No Beliefs That Will Affect Care: None marital status: Single Current Living Situation: Alone Current Living Situation Comment: Lives by self in apartment How many Children do You have: 0 Other Information That Helps Us Care for You: No Feels Safe at Home: Yes Safety Concerns: Feels Safe At This Time Assistive Devices: Oxygen - Continuous, Scooter/Electric Scooter, Walker and Other Review of Systems Negative except for what was mentioned in the H&P. Physical Exam Could not be performed as the visit was conducted via TeleMed. Results & Data Vital Signs (Past 12 Hours) Vital Signs Temp Pulse Pulse Pulse Resp BP BP 09/12/25 11:02 36.9 C 71 18 134/72 09/12/25 08:07 09/12/25 07:48 37.1 C 80 18 106/60 09/12/25 05:24 78 09/12/25 04:25 36.5 C 81 18 126/55 L Pulse Ox O2 Del Method O2 Flow Rate 09/12/25 11:02 98 Nasal Cannula 3 09/12/25 08:07 Nasal Cannula 3 09/12/25 07:48 99 Nasal Cannula 3 09/12/25 05:24 09/12/25 04:25 99 Nasal Cannula 3 Laboratory Results Microbiology: 09/10: 2 sets of blood culture negative to date 09/10: Urine culture growing ESBL Klebsiella Diagnostic Findings CT abdomen pelvis performed on 09/10: 1. Repositioned right sided percutaneous nephrostomy catheter with improved hydronephrosis compared to the 05/03/2025 study. 2. No urolith. 3. No bowel obstruction or bowel wall thickening.
[2025-09-13 08:16] VITALS: RESP 20; TEMP 98.5; O2SAT 96
[2025-09-13 09:39] LABS: Hematocrit (blood only) 36.1 % (37.0-47.0); Hemoglobin 11.6 g/dL (12.0-16.0); Immature Granulocytes # (auto) 0.05 K/uL (0.01-0.20); Immature Granulocytes % (auto) 0.5 %; Mean Corpuscular Hemoglobin 30.7 pg (25.0-34.0); Mean Corpuscular Volume 95.5 fL (80.0-100.0); Platelet Count 246 K/uL (130-400); RDW Standard Deviation 44.2 fL (36.4-46.3); Red Blood Count 3.78 M/uL (4.20-5.40); White Blood Count 9.21 K/ul (4.8-10.8)
[2025-09-13 09:49] LABS: Alanine Aminotransferase 6.0 U/L (7-52); Albumin Globulin Ratio 1.0 (0.9-2); Albumin Level 3.4 gm/dl (3.4-5.0); Alkaline Phosphatase 77.0 U/L (34-104); Anion Gap 5.0 (3-11); Bilirubin,Total 0.4 mg/dl (0.2-1.0); Blood Urea Nitrogen 27.0 mg/dl (6-23); Calcium 9.2 mg/dl (8.6-10.3); Carbon Dioxide 28.0 mmol/L (21-32); Chloride 103.0 mmol/L (98-107); Creatinine Clr Calc Pharmacy 38.3 ml/min; Globulin 3.5 gm/dl (2.5-4.0); Glucose 177.0 mg/dl (70-99(Fasting)); Magnesium 1.9 mg/dl (1.7-2.4); Potassium 3.9 mmol/L (3.5-5.1); Sodium 136.0 mmol/L (136-145); Total Protein 6.9 gm/dl (6.0-8.3)
--- NOTE | 2025-09-13 10:35 | Discharge Summary ---
Discharge Summary Date of Service September 13, 2025 Principal Dx & Hospital Course #1 = Principal Diagnosis (1) ELSIE (acute kidney injury): (2) Complicated urinary tract infection: (3) Cellulitis of right lower extremity: (4) CKD (chronic kidney disease), stage III: (5) Chronic diastolic heart failure: (6) Chronic respiratory failure: (7) HTN (hypertension): (8) Diabetes: Plan This is a 70-year-old female with significant past medical history of T2DM, CKD stage III, diastolic CHF, right hydronephrosis status post right nephrostomy tube, right transcarotid artery revascularization in 08/2023, chronic hypoxemic respiratory failure, HTN, recurrent DVT, IVC filter, hyperlipidemia, GERD, lumbar disc disease, RLS, ELISSA with CPAP intolerance, HIT and ambulatory dysfunction who presents to ED on 09/10/2025 after being referred by her PCP. ELSIE superimposed on CKD-3 Baseline Cr around 1.4-1.5 over the last year per review in [facility] Referred by PCP for worsening Cr outpatient Admitting Cr 2.42-> 2.02-->1.7 Suspect prerenal in setting of lower BPs and torsemide use Torsemide dose reduced outpatient from 30mg to 20mg s/p IVF, renal function improving while off torsemide Recommend continue to hold torsemide as pt volume status is at baseline for additional few days, through 09/16. Will have PCP Dr. Andujar re assess renal function as outpt and can be decided when to resume torsemide, this was discussed with him Avoid nephrotoxic agents as able Monitor renal function Complicated UTI due to nephrostomy tube ESBL Klebsiella History of VRE Follows with [facility] Dr. Arriaga for management of nephrostomy tube-> due for weekly flush today per patient, communication order placed UA positive leuk esterase, WBC, bacteria CTAP shows functioning and properly placed nephrostomy tube Asymptomatic, afebrile, no leukocytosis Urine culture Klebsiella ESBL ID feels likely colonized organism and no indication for further antibiotics - IV ertapenem d/c Pt was educated on signs of infection and when to be concerned about active UTI Chronic venous insufficiency Possible RLE cellulitis RLE erythema has improved from admission, now back to baseline resolved T2DM, insulin dependent with polyneuropathy A1C 6.5 On Tresiba, Novolog, Mounjaro at home BSG ACHS and SSI while inpatient Recurrent DVT with IVCF Continue Eliquis PAF Rate controlled Continue Eliquis and metoprolol Hyperlipidemia continue statin ELISSA Non compliant with CPAP Chronic hypoxic resp failure with ILD on 2L No signs of exacerbation Continue baseline O2 requirement RLS Continue ropinirole Fibromyalgia Continue duloxetine, gabapentin and tramadol MDD Continue duloxetine and clonazepam DVT Prophylaxis: On Eliquis Code Status: FULL CODE PCP: Galdino Andujar Disposition: Pt to be discharged home today with close follow up with [address] Patient seen in collaboration with Dr. Crooks. Please see addendum. Notes For Next Care Provider Please check BMP 09/16. I am instructing patient to continue to hold torsemide until repeat lab work. Please instruct pt when to resume. Medication Changes From Visit Hold torsemide and potassium for now Admission HPI Per Admitting Provider This is a 70-year-old female with significant past medical history of T2DM, CKD stage III, diastolic CHF, right hydronephrosis status post right nephrostomy tube, right transcarotid artery revascularization in 08/2023, chronic hypoxemic respiratory failure, HTN, recurrent DVT, IVC filter, hyperlipidemia, GERD, lumbar disc disease, RLS, ELISSA with CPAP intolerance, HIT and ambulatory dysfunction who presents to ED after being referred by her PCP. Patient was seen by her primary care provider on 09/02/25 Dr. Andujar. Outpatient lab work revealed an elevated creatinine. She was instructed to reduce her furosemide dose and had repeat blood work. It showed continued increase in her renal function in which she was referred to ED. She does have a known right nephrostomy tube in place secondary to right hydronephrosis. It is otherwise been functioning appropriately. Baseline cr per EPIC ~ 1.4. On 09/05 her bun/cr was 44 and 2.1 and 08/10 50 and 2.4. Pt reports feeling her "usual." She had been doing relatively well in regards to her nephrostomy tube. She feels it has been draining adequately and urine has been clear to dark. She still urinates and denies any typical uti sx including blood, burning or frequency. She is chronically constipated and feels it is worse today then normal. She states she was taking softeners that seemed to have her regular. She denies f/c/s, chest pain, sob, n/v/d. She has chronic occasional dizziness that is unchanged. She reports 1.5 weeks ago seeing some blood in her nephr tube, but none since. Admission Exam Per Admitting Provider Constitutional: elderly, F, sittingin bed, vitals as above, NAD, sitting up in bed, pleasant, conversing easily Head: Normocephalic, Atraumatic Eyes: conjunctivae normal, anicteric sclerae ENMT: external ear and nose normal, oropharynx dry membranes Neck: trachea midline, no thyromegaly normal visual inspection Respiratory: CTAB, no W/R/R, normal inspection, no accessory muscle use Cardiovascular: RRR, no murmur, b/l obese lower ext, no jaun edema, RLE > LLE< RLE pretibial erythema and warmth Chest: normal inspection of chest Abdomen: S, NT, ND, +BS x 4, no flank pain, + R perc neph tube draining adequately Musculoskeletal: no cyanosis or clubbing, extremities AROM x 4 Skin: no rashes, warm and dry normal turgor Neurologic: PERRL, EOMI, accommodation nl, no face palsy, no dysarthria CN's II-XI intact bilaterally and moves all extremities Psychiatric: A+Ox3, euthymic affect Discharge Exam Gen: WD/WN, NAD, A&O x3 HEENT: Normocephalic, atraumatic, conjunctivae moist, sclerae anicteric, mucous membranes moist. Lung: Clear to Auscultation bilaterally, no wheezes/rales/rhonchi Heart: Regular rate, regular rhythm, no murmurs, rubs, or gallops Abdomen: Soft, NT, ND +BS x 4 Extremities: No edema, rle venous insuff, no erythema Skin: Warm, no rash, negative turgor. Updated Medication List Medication Instructions Recorded Confirmed Type clonazepam 0.5 mg tablet 0.5 mg PO TID 09/20/23 09/10/25 History magnesium oxide 400 mg (241.3 mg 400 mg PO BID 09/20/23 09/10/25 History magnesium) tablet ropinirole 2 mg tablet 2 mg PO HS 09/20/23 09/10/25 History sennosides 8.6 mg-docusate sodium 1 tab PO BID 09/20/23 09/10/25 History 50 mg tablet (Senna-Time S) tramadol 50 mg tablet 50 mg PO Q8 PRN Pain 09/20/23 09/10/25 History levothyroxine 200 mcg tablet 200 mcg PO DAILYBB #30 tabs 12/07/23 09/10/25 Rx cholecalciferol (vitamin D3) 25 25 mcg PO QAM 01/16/24 09/10/25 History mcg (1,000 unit) tablet clopidogrel 75 mg tablet 75 mg PO QAM 01/16/24 09/10/25 History duloxetine 60 mg capsule,delayed 60 mg PO QAM 12/09/24 09/10/25 History release fluticasone propionate 50 2 spray intranasal AMHS 12/09/24 09/10/25 History mcg/actuation nasal spray,suspension gabapentin 300 mg capsule 300 mg PO AMHS 12/09/24 09/10/25 History insulin aspart U-100 100 unit/mL See Rx Instructions .Route .COMPLEX 12/09/24 09/10/25 History (3 mL) subcutaneous pen (Novolog FlexPen U-100 Insulin aspart) insulin degludec 100 unit/mL (3 15 unit subcut QPM 12/09/24 09/10/25 History mL) subcutaneous pen (Tresiba FlexTouch U-100 insulin) rosuvastatin 5 mg tablet 5 mg PO QAM 12/09/24 09/10/25 History trazodone 50 mg tablet 50 mg PO HS 12/09/24 09/10/25 History apixaban 5 mg tablet (Eliquis) 5 mg PO BID #60 tabs 01/31/25 09/10/25 Rx metoprolol succinate 25 mg 37.5 mg (1.5 x 25 mg) PO QAM #30 01/31/25 09/10/25 Rx tablet,extended release 24 hr tabs tirzepatide 7.5 mg/0.5 mL 7.5 mg subcut WE 02/25/25 09/10/25 History subcutaneous pen injector (Jamarcusunjose martinro) acetaminophen 500 mg tablet 500 - 1,000 mg PO Q8H PRN Pain 04/07/25 09/10/25 History (Tylenol Extra Strength) albuterol sulfate 2.5 mg/3 mL 2.5 mg inhalation DIRECTED PRN 04/07/25 09/10/25 History (0.083 %) solution for nebulization Shortness Of Breath Or Wheezing cyanocobalamin (vitamin B-12) 500 500 mcg PO DAILY 04/07/25 09/10/25 History mcg tablet (Vitamin B-12) pantoprazole 20 mg tablet,delayed 20 mg PO QAM 04/07/25 09/10/25 History release potassium chloride 10 mEq 10 meq PO BID 04/07/25 09/10/25 History capsule,extended release dicyclomine 20 mg tablet 20 mg PO QID PRN ABD CRAMPING 05/03/25 09/10/25 History ondansetron HCl 4 mg tablet 4 mg PO Q6H PRN NAUSEA/VOMITING 05/03/25 09/10/25 History torsemide 20 mg tablet 30 mg PO QAM 05/03/25 09/10/25 History baclofen 5 mg tablet 5 mg PO BID PRN Muscle Spasm 08/13/25 09/10/25 History Hospital Stay Data Consultations 09/10/25 13:29 ED Decision to Admit Stat 09/12/25 08:01 Consult Infectious Diseases Routine Diagnostic Imagining Performed Abdomen/Pelvis CT 09/10/25 10:[address] WITHOUT CONTRAST CT DOSE: 1422.96 mGy.cm HISTORY: Acute kidney injury ELSIE, perc nephro tube right TECHNIQUE: Multiaxial CT images of the abdomen and pelvis were performed without contrast. A dose lowering technique was utilized adhering to the principles of ALARA. COMPARISON STUDY: 05/03/2025 FINDINGS: Mitral annular and coronary arterial calcifications are present. Bibasilar atelectasis/scarring redemonstrated. No pneumatosis or pneumoperitoneum. The unenhanced spleen measures up to 13.67 m in length. Unremarkable pancreas, adrenal glands and liver. Cholecystectomy. Unremarkable left kidney. Percutaneous right-sided nephrostomy is in place, now with distal tip repositioned within the anterior aspect of the renal pelvis. There is improved hydronephrosis. Dilation of the right renal pelvis with adjac ent peripelvic inflammatory stranding. No urolith. Unremarkable urinary bladder and uterus. Atherosclerosis of the aorta and branch vessels. Infrarenal IVC filter in place. Duodenal diverticula. No bowel obstruction or bowel wall thickening. There is moderate colonic fecal retention. Normal appendix. Diastases recti with anterior abdominal wall hernia redemonstrated containing nonobstructed loop of transverse colon. No acute fracture. IMPRESSION: 1. Repositioned right sided percutaneous nephrostomy catheter with improved hydronephrosis compared to the 05/03/2025 study. 2. No urolith. 3. No bowel obstruction or bowel wall thickening. 4. Chronic findings as above. ACT 112: Negative or not required by law. The above report was generated using voice recognition software. It may contain grammatical, syntax or spelling errors. Electronically signed by: Enrico Gilliland M.D. 09/10/2025 12:36 PM Pending Results Patient Have Any Pending Studies at Discharge: No Discharge Instructions Given to Patient (Per Discharging Provider) MEDICATION CHANGES: Please hold torsemide and potassium chloride through 09/16/25. You will have your kidney functions repeated at this time and it can be decided if you can resume your torsemide and potassium then. SUMMARY OF TEST RESULTS: You were admitted to the hospital due to elevated kidney function as well as possible urinary tract infection. You were started on IV fluids and your water pill was held. You were started on IV antibiotics as well. A CT scan was done that showed your nephrostomy tube was in good position. PENDING TEST RESULTS: None RECOMMENDATIONS FOR FOLLOW-UP: Please follow up with Dr. Andujar. Their office will call you with an appointment. You will need your kidney functions (BMP) and urine repeated. Please monitor for signs of infection, including fever. Please limit sodium intake to < 2,000mg. Please monitor your weight daily. If you gain more than 2lbs in 1 day or 5lbs in [address] Enciso office. OTHER INSTRUCTIONS: Seek medical attention if you have: * temperature above 101 * chest pain or trouble breathing * abdominal pain, nausea, vomiting * diarrhea, dark stools or bloody stools * any unanswered questions or concerns Call 911 if symptoms are severe. Please take good care of yourself. It has been a pleasure taking care of you. Please take care of yourself. If you have any questions regarding your recent hospitalization please contact [facility] and request [facility] @ [phone]. Total Time Total Time Spent Total Time Spent (In Minutes): 45 minutes Supervising Physician Co-Signing Physician Notes Attending addendum: The patient was seen and examined in medical telemetry unit She has been weak and lethargic and denies any other significant symptoms Denies any fever no chills, no significant back pain other than usual, no nausea no vomiting On examination Sitting on incline without any acute symptoms Remains hemodynamically stable and afebrile Requiring 3 L of oxygen via nasal cannula to maintain saturation Chestdecreased breath sounds with minimal bibasilar crackles HeartS1-S2, regular Abdomenbenign with percutaneous nephrostomy tube on the right side in situ and draining Extremities trace edema bilateral Her admission labs, imaging studies and medications reviewed Probably has UTI and antibiotic has been started Complicated UTI secondary to nephrostomy tube in situawait culture and sensitivity ELSIE likely secondary to dehydration with history of CKD Likely has cellulitis of the right leg Will continue current antibiotic and await culture and sensitivity Agree with assessment plan as outlined above by Aliya SIMPSON and take the full responsibility of care in the hospital Total time taken to sink the patient, examining, reviewing chart and the labs and also medications and plan of care was [address] Haylie Crooks 09/12/2025 The patient was seen and examined in medical telemetry unit She has been feeling much better denies any significant symptoms Has had evaluation by ID and recommended not to give any antibiotic and observe off antibiotic She remains hemodynamically stable and physical examination remained unremarkable Her labs and medications reviewed and plan of care as above Likely discharge tomorrow Agree with assessment and plan as outlined above by Lisette Peralta PA-C and take the full responsibility care in the hospital Total time taken to document all of the above was [address] Haylie Crooks 09/13/2025 The patient was seen and examined in medical telemetry unit She has been stable and feeling a lot better Denies any fever and/or chills and her urine is not dark or any frequency She remains hemodynamically stable She was advised to have follow-up with the PCP off on antibiotic and will have a repeat UA and kidney function checked during the next visit to the PCP She will be discharged home this afternoon Agree with assessment plan as outlined above by Lisette Peralta PA-C and take the full responsibility of care in the hospital Total time taken to see the patient, examining her and reviewing her chart and medications was [address] Haylie Crooks
[2025-09-13 11:18] VITALS: BP 132/69; PULSE 70
== END 2025-09-13 11:47 | disposition home health service (06) | DRG 699 ==
LOC: ED 09:20 → 2W 13:52 → SUATTDRO 13:52 → 2W 15:25